=== PATIENT | female | born 1950 | race African-American/Black ===

== ENCOUNTER 2017-06-22 09:44 | Emergency (ER) | payer MEDICARE, SELFPAY ==
[2017-06-22 09:46] VITALS: BP 148/78; PULSE 110; RESP 22; TEMP 37.1; O2SAT 100; BMI 32.9
[2017-06-22 10:15] VITALS: BP 139/63; PULSE 116; RESP 24; O2SAT 100
--- NOTE | 2017-06-22 10:18 | EKG12_ITS ---
Test Reason : GEN ILL Blood Pressure : / mmHG Vent. Rate : 100 BPM Atrial Rate : 100 BPM P-R Int : 150 ms QRS Dur : 080 ms QT Int : 344 ms P-R-T Axes : 057 034 044 degrees QTc Int : 443 ms Normal sinus rhythm Low voltage QRS Confirmed by MILADY ZUNIGA, TRUDY ([id number]), publications editor NITISH CLARKE ([id number]) on 06/24/2017 1:22:46 PM Referred By: JOSE E Confirmed By:TRUDY HENNING MD
[2017-06-22 10:33] LABS: Absolute Lymphocyte Count 1.35 X10^3/ul (0.83-4.51); Basophil# 0.02 X10^3/uL; Basophil% 0.2 % (0-1); Eosinophil# 0.16 X10^3/uL; Eosinophils% 1.9 % (0-5); Hemoglobin 11.9 g/dl (12.0-15.0); Lymphocyte # 1.35 X10^3/ul (4.0); Lymphocyte % 16.4 % (19-41); Mean Corp Hgb Conc 33.1 g/gl (32-36); Mean Corpuscular Hgb 31.2 pg (27.0-32.0); Mean Corpuscular Volume 94.5 fL (81-99); Mean Platelet Vol. 10.5 fl (6.2-12.0); Monocyte# 0.69 X10^3/uL; Monocyte% 8.4 % (0-10); Neutrophil # 6.02 X10^3/uL (2.7-7.7); Platelet Count 195 K/mm3 (150-450); RBC Distribution Width CV 13.2 % (11.6-14.6); RBC Distribution Width SD 43.6 fl (35.1-43.9); Red Blood Count 3.81 M/mm3 (4.2-5.4); White Blood Count 8.3 K/mm3 (4.4-11.0)
--- NOTE | 2017-06-22 10:45 | RAD_ITS ---
STUDY: X-RAY CHEST REASON FOR EXAM: Female, 66 years old. Cough. TECHNIQUE: PA and lateral views of the chest. COMPARISON: June 17, 2016 FINDINGS: There are monitoring devices. Stable elevation of the right hemidiaphragm. There is no demonstrated pleural abnormality. Normal size heart. Normal mediastinum and allie. Normal visualized pulmonary arteries. Normal visualized aortic arch and descending thoracic aorta. There is demineralization of the osseous structures. Degenerative change of the spine and shoulders . There is no demonstrated abnormality of the visualized soft tissue structures of the upper abdomen. RAD/Chest PA and Lateral IMPRESSION: Degenerative changes, as described above. No demonstrated acute cardiopulmonary process. Electronically Signed: Jossue Abel MD at 11:11 EST , Service support ,
[2017-06-22 10:46] LABS: Anion Gap 6 (5-15); BUN 14 mg/dL (7-18); BUN/Creat Ratio 16.3 RATIO (10-20); Calcium,Total 8.7 mg/dL (8.5-10.1); Chloride 106 mmol/L (98-107); Creatinine, Serum 0.86 mg/dL (0.55-1.02); EST Glomerular Filtration Rate 71 mL/min (>60); Est Glom Filt Rate - Afr Amer 85 mL/min (>60); Estimated Creatinine Clearance 52.27 ml/min; Glucose 103 mg/dL (74-106); Potassium 3.8 mmol/L (3.5-5.1); Sodium Level 140 mmol/L (136-145)
[2017-06-22] MEDS: 0.9% Normal Saline 1,000 ML 1000 ML IV (10:48)
[2017-06-22] MEDS: Ketorolac 30 MG/ML Syringe IV (10:48)
[2017-06-22 10:51] LABS: POSITIVE COUNT NO; POSITIVE DIFFERENTIAL NO; POSITIVE MORPHOLOGY NO
--- NOTE | 2017-06-22 11:19 | ED.VISSUMM ---
- ER Visit Summary Date of Service: 06/22/17 Chief Complaint: Chills and myalgias History of Present Illness: The patient is a 66 F who presents with fever of about 100, chills muscle and joint aches. She became ill yesterday. She reports chills sweats nasal congestion sore throat. She complains of chest tightness which is worse with inspiration. She reports productive cough and diarrhea. She complains of muscle aches and joint aches. She does not feel short of breath. She denies abdominal pain. No vomiting. Physical Examination: Afebrile heart rate 110 respiratory rate 22 pulse ox 100% on room air Moist mucous membranes Heart regular rhythm tachycardia Lungs are clear without rales rhonchi or wheezes Abdomen soft and nontender Alert and oriented Test Results: Rapid influenza negative. CBC BMP unremarkable and troponin negative. EKG shows sinus rhythm at a rate of 100. Two-view chest x-ray shows no acute process. Emergency Department Course and Treatment: Was given IV fluids and Toradol here for symptomatic treatment. On reevaluation she does report improvement. Her heart rate is less than 100 and she maintains a pulse ox of 100%. She is slightly tachypneic but in no distress no retractions able speak in full sentences with no difficulty. I do believe this is related to a viral syndrome. She was instructed on supportive care. She is comfortable with the plan and all questions were answered at bedside. She does understand return for new or worsening symptoms and was discharged home. Treatment Plan: [] Disposition: Discharge Impression: Viral syndrome This note was generated with FastCAP dictation software. It may contain incorrect words, spelling, and punctuation that were not noted in review of the chart prior to signing ED Disposition - Plan for ED Patient: Chief Complaint: General Illness Referrals: Kannan Garcia MD [Primary Care Provider] -
--- NOTE | 2017-06-22 11:22 | ED.DEP ---
ED Disposition - Plan for ED Patient: Chief Complaint: General Illness Instructions: ED Viral Syndrome Referrals: Kannan Garcia MD [Primary Care Provider] -
[2017-06-22 12:11] VITALS: BP 136/72; PULSE 86; RESP 16; O2SAT 97
[2017-06-22 12:24] VITALS: BP 124/78; PULSE 77; RESP 16; O2SAT 98
== END 2017-06-22 12:28 | disposition home or self-care (01) ==
LOC: ED 10:31
PROVIDERS: Emergency Provider Emergency Medicine; Family Provider Internal Medicine; PCP Internal Medicine
DX: B34.9 Viral infection, unspecified (principal); J02.9 Acute pharyngitis, unspecified; R07.9 Chest pain, unspecified; R05 Cough; R19.7 Diarrhea, unspecified; G40.909 Epilepsy, unspecified, not intractable, without status epilepticus; E11.9 Type 2 diabetes mellitus without complications; I10 Essential (primary) hypertension; K21.9 Gastro-esophageal reflux disease without esophagitis; Z79.84 Long term (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 of oral hypoglycemic drugs; Z79.82 Long term (current) use of aspirin; Z79.899 Other long term (current) drug therapy
CPT/HCPCS: 71046; 80048; 84484; 85025; 87804; 93005; 96361; 96374; 99284; J7030; A4216

== ENCOUNTER → 2017-07-29 15:42 | Outpatient (CLI) | payer MEDICARE, SELFPAY ==
[2017-07-29 15:44] LABS: Bacteria 0 SEEN /hpf (None Seen); Red Blood Cells-Urine 0 SEEN /hpf (0-5); Squamous Epithelial Cells - UA 0 SEEN /hpf (5-10)
[2017-07-29 15:57] LABS: Color, Urine Yellow (Yellow); Glucose, Dipstick Normal (Normal); Ketone-Dipstick Negative (Negative); Leukocyte Esterase-Dipstick 25 /ul (Negative); Nitrite-Dipstick Negative (Negative); Occult Blood-Urine 10 /ul (Negative); Protein-Dipstick Negative (Negative); Specific Gravity, Urine 1.015 (1.002-1.030); Urine Bilirubin Dipstick Negative (Negative); Urine Clarity Clear (Clear); Urine Urobilinogen 1 mg/dl (Normal); Urine pH 6.5 (5.0 - 8.0)
[2017-07-29 16:21] LABS: Mucous, Urine 1+ /hpf (<or=2+); White Blood Cells 0-5 SEEN /hpf (0-5)
== END ==
PROVIDERS: Family Provider Internal Medicine; PCP Internal Medicine; Visit Provider Nurse Practitioner Family
DX: N39.0 Urinary tract infection, site not specified (principal); R30.0 Dysuria
CPT/HCPCS: 81001; 87086; 87088

== ENCOUNTER → 2017-08-13 08:19 | Outpatient (CLI) | payer MEDICARE, SELFPAY ==
--- NOTE | 2017-08-13 08:40 | RAD_ITS ---
STUDY: X-RAY - PELVIS REASON FOR EXAM: Female, 66 years old. Polyarthropathy. TECHNIQUE: One view of the pelvis was obtained. COMPARISON: None. FINDINGS: There is a non-specific bowel gas pattern. There are multiple calcified phleboliths. There is narrowing with cortical sclerosis and osteophyte formation of the sacroiliac joint consistent with degenerative osteoarthritic changes. Normal visualized bilateral superior and inferior pubic rami. Normal pubic symphysis. Normal ischial tuberosities. Normal visualized right femoral head. Normal right acetabulum. There is moderate articular joint space narrowing of the right hip. Normal visualized left femoral head. Normal left acetabulum. There is moderate articular joint space narrowing of the left hip. RAD/Pelvis 1 or 2 Views IMPRESSION: Osteoarthritis of both hip joints. Electronically Signed: Tor Artis MD at 10:35 EDT Tel [phone], Service support ,
[2017-08-13 10:20] LABS: Absolute Neutrophil Count 1.8 X10^3/uL (2.0-7.7); Basophil# 0.01 X10^3/uL; Basophil% 0.3 % (0-1); Eosinophil# 0.11 X10^3/uL; Hematocrit 36.7 % (37-47); Hemoglobin 11.9 g/dl (12.0-15.0); Lymphocyte % 38.1 % (19-41); Mean Corp Hgb Conc 32.4 g/gl (32-36); Mean Corpuscular Volume 95.6 fL (81-99); Mean Platelet Vol. 11.2 fl (6.2-12.0); Monocyte# 0.34 X10^3/uL; Monocyte% 9.3 % (0-10); Neutrophil # 1.81 X10^3/uL (2.7-7.7); Neutrophil % 49.3 % (47-70); Platelet Count 205 K/mm3 (150-450); RBC Distribution Width CV 13.2 % (11.6-14.6); RBC Distribution Width SD 44.9 fl (35.1-43.9); Red Blood Count 3.84 M/mm3 (4.2-5.4); White Blood Count 3.7 K/mm3 (4.4-11.0)
[2017-08-13 10:23] LABS: POSITIVE COUNT NO; POSITIVE DIFFERENTIAL NO; POSITIVE MORPHOLOGY NO
[2017-08-13 10:29] LABS: ALB/GLOB Ratio 0.9 RATIO (0.9-2.4); AST(SGOT) 16 U/L (15-37); Alanine Aminotransfer ALT/SGPT 21 U/L (13-56); Albumin, Serum 3.4 g/dL (3.2-5.0); Alkaline Phosphatase 110 U/L (45-117); Anion Gap 9 (5-15); BUN 17 mg/dL (7-18); BUN/Creat Ratio 20.2 RATIO (10-20); CRP 6.77 mg/L (0.0-3.0); Calcium,Total 8.7 mg/dL (8.5-10.1); Chloride 107 mmol/L (98-107); Creatinine, Serum 0.84 mg/dL (0.55-1.02); EST Glomerular Filtration Rate 72 mL/min (>60); Est Glom Filt Rate - Afr Amer 87 mL/min (>60); Globulin 3.9 g/dL (2.2-4.2); Glucose 112 mg/dL (74-106); Potassium 4.1 mmol/L (3.5-5.1); Protein, Total 7.3 g/dL (6.4-8.2); Rheumatoid Factor < 10.0 IU/mL (<15); Sodium Level 143 mmol/L (136-145)
[2017-08-13 10:38] LABS: T4 Free Direct 0.92 ng/dL (0.76-1.46); Thyroid Stim Hormone (TSH) 2.19 uIU/mL (0.358-3.74)
[2017-08-13 11:06] LABS: Erythrocyte Sedimentation Rate 16 mm/hr (0-30)
[2017-08-15 08:46] LABS: ANTINUCLEAR ANTIBODIES DIRECT Negative (Negative)
[2017-08-19 18:27] LABS: CCP IgG Antibodies 8 units (0-19); HEPATITIS B SURFACE AG Negative (Negative); HLA B27 Negative (.); Hep B Surface Antibodies Non Reactive (.); Hep C Antibodies <0.1 s/co ratio (0.0-0.9)
== END ==
PROVIDERS: Nurse Practitioner; Family Provider Internal Medicine; PCP Internal Medicine; Visit Provider Internal Medicine Rheumatology
DX: M06.4 Inflammatory polyarthropathy (principal); I11.0 Hypertensive heart disease with heart failure; I50.9 Heart failure, unspecified; G40.909 Epilepsy, unspecified, not intractable, without status epilepticus; E04.1 Nontoxic single thyroid nodule; E11.9 Type 2 diabetes mellitus without complications; E78.5 Hyperlipidemia, unspecified; G47.33 Obstructive sleep apnea (adult) (pediatric); K21.9 Gastro-esophageal reflux disease without esophagitis
CPT/HCPCS: 36415; 72170; 80053; 81374; 84439; 84443; 85025; 85652; 86038; 86140; 86200; 86431; 86706; 86803; 87340

== ENCOUNTER → 2017-10-19 05:55 | Outpatient (CLI) | payer MEDICARE, SELFPAY ==
--- NOTE | 2017-10-19 06:08 | ECHOD_ITS ---
Reason For Study: DYSPNEA Procedure This was a 2D Doppler, Color Flow transthoracic echocardiogram. Exam performed in department. Left Ventricle Normal left ventricle. Left ventricular systolic function is normal. The estimated ejection fraction is 60 %. Transmitral diastolic flow velocities suggest mild (stage 1) diastolic dysfunction (reversed pattern). No regional wall motion abnormalities noted. Right Ventricle Normal RV size. Normal systolic function. Atria Normal left atrium. Normal right atrium. Bubble contrast study negative for right to left interatrial shunt. Mitral Valve Normal mitral valve. Tricuspid Valve Normal tricuspid valve. Mild (1+) tricuspid valve insufficiency. Pulmonary artery systolic pressure is 26 mmHg. Aortic Valve Normal aortic valve. Trisinus/trileaflet aortic valve. Pulmonic Valve Normal pulmonic valve. Great Vessels Normal aortic root. The pulmonary artery is normal size. Normal inferior vena cava. Pericardium/Pleural No pericardial effusion. Medication Performed a rapid injection of agitated mix of 9 cc saline and 1cc air to assess for atrial septal defect. MMode/2D Measurements & Calculations LVIDd: 4.2 cm IVSd: 0.98 cm Ao root diam: 2.7 cm LVIDs: 2.7 cm LVPWd: 1.0 cm RVDd: 2.7 cm FS: 36.0 % LAV(MOD-bp): 50.8 ml EDV(MOD-sp4): 70.9 ml EDV(MOD-sp2): 39.9 ml LAV(MOD-bp) Indexed: 27.8 ml/m2 ESV(MOD-sp4): 25.5 ml EF(MOD-sp2): 65.3 % LAV(MOD-sp2): 46.2 ml EF(MOD-sp4): 64.1 % LAV(MOD-sp4): 51.3 ml SV(MOD-sp4): 45.4 ml SV(MOD-sp2): 26.0 ml LA A4 area: 18.2 cm2 RA A4 area: 13.1 cm2 Doppler Measurements & Calculations MV E max raul: 63.5 cm/sec Lat Peak E' Raul: 4.1 cm/sec Med Peak E' Raul: 5.6 cm/sec MV A max raul: 85.8 cm/sec E/E' lat: 15.6 E/E' med: 11.3 MV E/A: 0.74 Ao V2 max: 120.9 cm/sec LV V1 max: 111.2 cm/sec TR max raul: 234.2 cm/sec Ao max P.8 mmHg LV V1 max P.9 mmHg TR max P.0 mmHg Interpretation Summary Normal left ventricle. Left ventricular systolic function is normal. The estimated ejection fraction is 60 %. Transmitral diastolic flow velocities suggest mild (stage 1) diastolic dysfunction (reversed pattern). Bubble contrast study negative for right to left interatrial shunt. Ordering Physician: WINSTON GARRIDO Referring Physician: MAYDA MALIK Performed By: Christin Vicente, YUMIKO, RVT
--- NOTE | 2017-10-19 12:06 | STRESSREP ---
Stress Test Report Exercise myocardial perfusion stress test. 66-year-old lady with a history of shortness of breath and dyspnea on exertion. Medications Metformin and Amaryl Plaquenil and Lipitor Cozaar. Stress protocol: Resting EKG demonstrates normal sinus rhythm with a rate of 83 beats minute normal intervals and noted resting blood pressure is 126/78 mmHg. The patient exercised according to regular Eldon protocol for a total duration of 9 minutes completing stage III of the Eldon protocol. The maximum heart rate attained was 142 bpm which was 91% of maximum predicted heart rate the maximum workload attained was 10.1 metabolic equivalents. At rest were no ST or T-wave changes noted suggest ischemia at peak exercise upsloping ST changes only were noted with no meet the criteria for ischemia. No clinical angina was noted the test was terminated due to leg fatigue. The resting blood pressure is 126/78 with a peak blood pressure 160/68 rate pressure product was 22,500. Myocardial perfusion protocol. 11.7 mCi of technetium 99m sestamibi was injected at rest. The patient exercised according to regular [place]on protocol for total duration of 9 minutes attaining 10.1 metabolic equivalents at peak exercise 33.3 mCi of technetium 99m sestamibi was injected stress images were obtained stress and rest images were reconstructed and compared in the short axis vertical long and horizontal long axis. Gated images were also obtained pre- Perfusion SPECT analysis. Review of the stress images demonstrate normal uptake of tracer noted in all areas of the myocardium. The resting images similarly demonstrate normal uptake of tracer noted in all areas of myocardium. No areas of reversibility are noted suggest ischemia and no previous infarct is noted. Gated SPECT analysis. The gated ejection fraction is noted to be 70%. Conclusion: Normal exercise myocardial perfusion stress test at a high workload. Preserved ejection fraction.
== END ==
PROVIDERS: Family Provider Internal Medicine; PCP Internal Medicine; Visit Provider Internal Medicine Cardiovascular Disease
DX: R06.09 Other forms of dyspnea (principal); R06.02 Shortness of breath
CPT/HCPCS: 78452; 93017; 93306; A9500; A4216

== ENCOUNTER → 2017-10-20 08:34 | Outpatient (CLI) | payer MEDICARE, SELFPAY ==
[2017-10-20 10:32] LABS: Absolute Lymphocyte Count 1.42 X10^3/ul (0.83-4.51); Absolute Neutrophil Count 2.4 X10^3/uL (2.0-7.7); Basophil# 0.01 X10^3/uL; Basophil% 0.2 % (0-1); Eosinophil# 0.08 X10^3/uL; Eosinophils% 1.9 % (0-5); Hematocrit 37.8 % (37-47); Hemoglobin 12.5 g/dl (12.0-15.0); Lymphocyte # 1.42 X10^3/ul (4.0); Lymphocyte % 33.2 % (19-41); Mean Corp Hgb Conc 33.1 g/gl (32-36); Mean Corpuscular Hgb 31.3 pg (27.0-32.0); Mean Corpuscular Volume 94.7 fL (81-99); Mean Platelet Vol. 10.9 fl (6.2-12.0); Monocyte# 0.36 X10^3/uL; Monocyte% 8.4 % (0-10); Neutrophil # 2.41 X10^3/uL (2.7-7.7); Neutrophil % 56.3 % (47-70); Platelet Count 225 K/mm3 (150-450); Red Blood Count 3.99 M/mm3 (4.2-5.4); White Blood Count 4.3 K/mm3 (4.4-11.0)
[2017-10-20 10:35] LABS: POSITIVE COUNT NO; POSITIVE DIFFERENTIAL NO; POSITIVE MORPHOLOGY NO
[2017-10-20 11:05] LABS: ALB/GLOB Ratio 0.8 RATIO (0.9-2.4); AST(SGOT) 24 U/L (15-37); Alanine Aminotransfer ALT/SGPT 36 U/L (13-56); Albumin, Serum 3.3 g/dL (3.2-5.0); Alkaline Phosphatase 112 U/L (45-117); Anion Gap 6 (5-15); BUN 16 mg/dL (7-18); Calcium,Total 8.4 mg/dL (8.5-10.1); Chloride 106 mmol/L (98-107); Cholesterol 169 mg/dL (200); Creatinine, Serum 0.89 mg/dL (0.55-1.02); EST Glomerular Filtration Rate 68 mL/min (>60); Est Glom Filt Rate - Afr Amer 82 mL/min (>60); Globulin 4.2 g/dL (2.2-4.2); Glucose 118 mg/dL (74-106); High Density Lipoprotein 39 mg/dL; Potassium 4.3 mmol/L (3.5-5.1); Protein, Total 7.5 g/dL (6.4-8.2); Sodium Level 142 mmol/L (136-145); Triglycerides 99 mg/dL; Very Low Density Lipoprotein 20 mg/dL (5-40)
[2017-10-21 08:39] LABS: Vitamin D,25 Hydroxy 19.9 ng/mL (29.95-100.01)
== END ==
PROVIDERS: Family Provider Internal Medicine; PCP Internal Medicine; Visit Provider Internal Medicine Rheumatology
DX: M06.4 Inflammatory polyarthropathy (principal); G40.909 Epilepsy, unspecified, not intractable, without status epilepticus; E11.9 Type 2 diabetes mellitus without complications; E55.9 Vitamin D deficiency, unspecified; K21.9 Gastro-esophageal reflux disease without esophagitis
CPT/HCPCS: 36415; 80053; 80061; 82306; 85025

== ENCOUNTER → 2018-01-13 08:21 | Outpatient (CLI) | payer MEDICARE, BC, SELFPAY ==
--- NOTE | 2018-01-13 08:30 | BD_ITS ---
STUDY: DUAL ENERGY X-RAY ABSORPTIOMETRY / DXA REASON FOR EXAM: Female, 67 years old. The patient is postmenopausal. No loss of height. TECHNIQUE: Bone Mineral Density (BMD) measurements of lumbar spine and bilateral hips were obtained. COMPARISON: None. FINDINGS: Lumbar Spine (L1-L4): g/cm2 (0.914) / T-score (-2.2) / Z-score (-1.3) Findings are suggestive of osteopenia with a moderate fracture risk. Left Femur Total: g/cm2 (0.951) / T-score (-0.5) / Z-score (-0.2) Left Femoral Neck: g/cm2 (0.897) / T-score (-1.0) / Z-score (0.5) Right Femur Total: g/cm2 (0.852) / T-score (-1.2) / Z-score (-1.0) Right Femoral Neck: g/cm2 (0.800) / T-score (-1.7) / Z-score (-1.2) BD/Dexa Bone Density Study IMPRESSION: The patient is considered osteopenic as outlined below according to World Silvio Organization (WHO) criteria with a moderate fracture risk. Reference Information: The T-score is the number of standard deviations above or below the standard which is normal for young adults at their peak bone mineral density. The World Health Organization (WHO) interprets the T-scores as follows: Above -1 Normal bone density Between -1 and -2.5 Osteopenia Equal to / or below -2.5 Osteoporosis As a practical clinical guideline, osteopenia may be graded as follows: Mild -1 through -1.5 Moderate -1.6 through -2.0 Severe -2.1 through -2.4 The Z-score is the number of standard deviations above or below age-matched controls. A Z-score of less than -1.5 would be considered abnormal. References: 1. NIH Osteoporosis and Related Bone Diseases http://www.osteo.org 2. International Society for Clinical Densitometry http://www.iscd.org 3. National Osteoporosis Foundation http://www.nof.org Electronically Signed: Tor Artis MD at 13:29 EDT Tel [phone], Service support ,
== END ==
PROVIDERS: Family Provider Internal Medicine; PCP Internal Medicine; Visit Provider Internal Medicine
DX: Z78.0 Asymptomatic menopausal state (principal); M85.80 Other specified disorders of bone density and structure, unspecified site
CPT/HCPCS: 77080

== ENCOUNTER 2018-03-20 18:35 | Inpatient (IN) | payer MEDICARE, BC, SELFPAY ==
[2018-03-20] VITALS (17 sets, daily range): BP systolic 108–176; BP diastolic 62–94; PULSE 81–125; RESP 12–18; TEMP 36.9; O2SAT 98–100; BMI 33.0; BMI 32.7
--- NOTE | 2018-03-20 18:45 | EKG12_ITS ---
Test Reason : CP Blood Pressure : / mmHG Vent. Rate : 121 BPM Atrial Rate : 121 BPM P-R Int : 146 ms QRS Dur : 076 ms QT Int : 314 ms P-R-T Axes : 058 017 043 degrees QTc Int : 445 ms Sinus tachycardia Possible Left atrial enlargement Borderline ECG Confirmed by RADHIKA ZUNIGA, KELLY ([id number]), proposal editor NITISH CLARKE ([id number]) on 03/24/2018 11:56:55 AM Referred By: DC Confirmed By:KELLY GARRIDO MD
--- NOTE | 2018-03-20 18:47 | ED.VISSUMM ---
- ER Visit Summary Date of Service: 03/20/18 Chief Complaint: Chest pain History of Present Illness: The patient is a 67 F left-sided chest pain started 2 days ago. States went away this morning woke up at 8 5 AM with mild pain left chest with numbness left arm. States waxing waning progressed throughout the day currently at 10. Sharp in nature. Complains of dyspnea mild sweats. No nausea. Denies tobacco history. History hypertension, hypercholesteremia, diabetes. No recent travel, surgery, or immobilizations. No history of PE or DVT. States history of congestive heart failure however no [place] history. Currently see a new road design draftsperson. No aspirin taken at home. Physical Examination: General: Alert and oriented ?3, no acute distress HEENT: Normocephalic, atraumatic. Moist mucosa membranes Neck: supple, nontender. Cardiovascular: Regular tachycardic rate and rhythm, no murmurs Respiratory: Normal breath sounds, symmetric, no distress Abdomen: Soft, nontender, nondistended Extremities: Nontender, no edema, pulses intact ?4 Neuro: no focal neurological deficits. Test Results: EKG: Sinus rate of 121, no ST or T wave changes. White count 5.5 hemoglobin 12.3. Creatinine 0.8. Potassium 4.0. Troponin 0 0.015. D-dimer 0.47. Chest x-ray negative. Emergency Department Course and Treatment: Patient complaining of angina symptoms. Aspirin and nitro series given. Workup initiated. Initial workup negative. Her tachycardia d-dimer obtain normal levels. She is given gentle fluids heart rate did improve to the 80s. Reevaluation however states still had pressure pain 8 out of 10. She is placed on a nitro drip due to her symptoms. This significantly improved her symptoms. DONYA scores a 2. Heart scores of 4. I discussed with road design draftsperson Dr. Mobley will add Lovenox. Will admit for cardiac rule out. Spoke with hospitalist Dr. Meléndez for admission to stepdown. Treatment Plan: [] Disposition: Admission Impression: 1. Acute chest pain 2. acute coronary syndrome This note was generated with KnexxLocalation software. It may contain incorrect words, spelling, and punctuation that were not noted in review of the chart prior to signing ED Disposition - Plan for ED Patient: Disposition: [facility] Chief Complaint: Chest Pain Diagnosis: Chest pain Referrals: Kannan Garcia MD [Primary Care Provider] -
[2018-03-20] MEDS: Aspirin 81 MG TAB.CHEW 324 MG PO (18:52)
[2018-03-20] MEDS: 0.9% Normal Saline 1,000 ML 150 ML IV (18:55)
[2018-03-20 18:56] LABS: Absolute Lymphocyte Count 2.51 X10^3/ul (0.83-4.51); Absolute Neutrophil Count 2.5 X10^3/uL (2.0-7.7); Basophil# 0.01 X10^3/uL; Basophil% 0.2 % (0-1); Eosinophil# 0.14 X10^3/uL; Eosinophils% 2.6 % (0-5); Hematocrit 37.8 % (37-47); Hemoglobin 12.3 g/dl (12.0-15.0); Lymphocyte # 2.51 X10^3/ul (4.0); Lymphocyte % 45.7 % (19-41); Mean Corp Hgb Conc 32.5 g/gl (32-36); Mean Corpuscular Hgb 30.8 pg (27.0-32.0); Mean Corpuscular Volume 94.7 fL (81-99); Mean Platelet Vol. 10.1 fl (6.2-12.0); Monocyte# 0.28 X10^3/uL; Monocyte% 5.1 % (0-10); Neutrophil # 2.54 X10^3/uL (2.7-7.7); Neutrophil % 46.2 % (47-70); Platelet Count 228 K/mm3 (150-450); RBC Distribution Width SD 45.1 fl (35.1-43.9); Red Blood Count 3.99 M/mm3 (4.2-5.4); White Blood Count 5.5 K/mm3 (4.4-11.0)
[2018-03-20 18:57] LABS: POSITIVE COUNT NO; POSITIVE DIFFERENTIAL NO; POSITIVE MORPHOLOGY NO
[2018-03-20 19:03] LABS: Prothrombin Time (Protime)PT. 12.7 SECONDS (11.7-14.9)
[2018-03-20 19:04] LABS: Partial Thromboplast Time 28.4 Seconds (24.1-36.2)
[2018-03-20 19:06] LABS: D-Dimer Quantitative (DVT/PE) 0.47 FEU/ug/m (0.27-0.49)
[2018-03-20 19:13] LABS: Anion Gap 9 (5-15); BUN 19 mg/dL (7-18); Calcium,Total 8.8 mg/dL (8.5-10.1); Chloride 108 mmol/L (98-107); Creatinine, Serum 0.86 mg/dL (0.55-1.02); EST Glomerular Filtration Rate 70 mL/min (>60); Est Glom Filt Rate - Afr Amer 85 mL/min (>60); Estimated Creatinine Clearance 51.58 ml/min; Glucose 102 mg/dL (74-106); Sodium Level 145 mmol/L (136-145)
--- NOTE | 2018-03-20 19:33 | EKG12_ITS ---
Test Reason : REPEAT Blood Pressure : / mmHG Vent. Rate : 099 BPM Atrial Rate : 099 BPM P-R Int : 150 ms QRS Dur : 078 ms QT Int : 346 ms P-R-T Axes : 048 010 022 degrees QTc Int : 444 ms Normal sinus rhythm Normal ECG Confirmed by KELLY GARRIDO MD ([id number]), film or videotape editor NITISH CLARKE ([id number]) on 03/24/2018 11:57:12 AM Referred By: TL Confirmed By:KELLY GARRIDO MD
--- NOTE | 2018-03-20 19:33 | RAD_ITS ---
STUDY: X-RAY CHEST REASON FOR EXAM: Female, 67 years old. Chest pain, dyspnea. TECHNIQUE: Portable chest. COMPARISON: 06/22/2017. FINDINGS: The lungs are clear and expanded. There is no demonstrated pleural abnormality. Normal size heart. Normal mediastinum and allie. Normal visualized pulmonary arteries. Normal visualized aortic arch and descending thoracic aorta. Normal visualized thoracic spine. Normal visualized ribs, clavicles, and shoulders. There is no demonstrated abnormality of the visualized soft tissue structures of the upper abdomen. RAD/Chest 1 View (Portable) IMPRESSION: Normal x-ray examination of the chest. Electronically Signed: Janeth Forman MD at 19:59 EST Tel , Service support ,
[2018-03-20] MEDS: Nitroglycerin Infusion 250 ML 12 MG IV (20:16)
[2018-03-20] MEDS: Acetaminophen 500 MG Tablet 1000 MG PO (20:21)
[2018-03-20] MEDS: Enoxaparin 100 MG/ML Syringe 90 MG SC (21:00)
--- NOTE | 2018-03-20 21:10 | HP.PCM_ITS ---
Problem List (1) Chest pain Status: Acute History of Present Illness Date of Admission: 03/20/18 Chief Complaint: chest Pain The patient is a 67 year old F with a significant history of hypertension, diabetes, seizure disorder, stage I diastolic dysfunction who presented with a 2 days history of progressively worsening episodic substernal squeezing chest pain that radiated to her left arm. She reports numbness of her left arm. Associated with her symptoms is diaphoresis; headache; cough and shortness of breath. Patient denies any aggravating factor. At emergency department patient was started on nitroglycerin drip. Patient reports improvement of chest pain with nitroglycerin drip. On the same day of admission she had some nausea and loose bowel movements x 3 times. Past Medical History Past Medical History (Chronic Problems): Chronic Problems (Last Reviewed 03/20/18 @ 21:48 by Parker Meléndez MD) Heel spur (Chronic) Type 2 diabetes mellitus (Chronic) Obesity (Chronic) Vitamin D deficiency (Chronic) Hypertension (Chronic) Seizure disorder (Chronic) Diabetes mellitus (Chronic) type 2 Conversion disorder (Chronic) Cerebrovascular disease (Chronic) 45% L ICA stenosis Rheumatoid arthritis (Chronic) Hx of chronic inflammatory arthritis (Chronic) Chronic diastolic CHF (congestive heart failure) (Chronic) Hyperlipidemia (Chronic) Obstructive sleep apnea (Chronic) Medical History: Medical History (Last Reviewed 03/20/18 @ 21:48 by Parker Meléndez MD) Arthritis M19.90 Diabetes type 2, controlled E11.9 H/O: hysterectomy Z98.890, Z90.710 Heart disease I51.9 High cholesterol E78.00 Hives L50.9 Rheumatoid arthritis M06.9 Seasonal allergies J30.2 Seizures R56.9 HTN (hypertension) I10 Allergies prednisone Adverse Reaction (Verified 03/20/18 18:38) Nausea Home Medications: Ambulatory Orders Medication Instructions Recorded Metformin HCl [Glucophage] 500 mg PO BIDCM 02/22/13 Gabapentin 600 mg PO BID 02/23/13 Glimepiride [Amaryl] 2 mg PO DAILY 02/23/13 Hydroxychloroquine [Plaquenil] 200 mg PO BIDCM 02/23/13 Meloxicam [Mobic] 7.5 mg PO DAILY 02/23/13 Omeprazole [Prilosec] 20 mg PO DAILY 02/23/13 Verapamil [Calan] 120 mg PO QHS 02/23/13 Dicyclomine HCl [Bentyl] 20 mg PO TIDAC PRN #16 cap 12/25/15 Atorvastatin Calcium [Lipitor] 40 mg PO QHS 08/24/16 Aspirin [Aspirin, Baby] 81 mg PO DAILY@0800 02/26/17 Cholecalciferol (Vitamin D3) 2,000 unit PO DAILY 02/26/17 [Vitamin D3] Losartan Potassium [Cozaar] 25 mg PO DAILY 02/26/17 cyclobenzaprine 10 mg tablet 10 mg PO TID PRN #30 tab 05/18/17 fluticasone 50 mcg/actuation nasal 1 spray INTRANASAL BID #16 g 06/23/17 spray,suspension triamcinolone acetonide 0.025 % 1 applic TOPICAL QDAY #80 g 09/10/17 topical ointment ketotifen 0.025 % (0.035 %) eye 1 drp OPHTHALMIC BID PRN #5 ml 09/14/17 drops divalproex ER 250 mg 1,000 mg PO QHS #120 tab 03/17/18 tablet,extended release 24 hr Surgical History: Surgical History (Last Reviewed 03/20/18 @ 21:48 by Parker Meléndez MD) History of carpal tunnel surgery Z92.89 History of section Z98.891 Surgical History: hysterectomy Psychiatric History: No pertinent psych hx Smoking Status: Never smoker - *Family History Maternal Family History: Family History (Last Reviewed 03/21/18 @ 01:23 by Parker Meléndez MD) Grandmother Alcoholism Cancer Arthritis Mother Alcoholism Diabetes blood clots Hypertension Grandfather Heart disease Sister Thyroid disorder Other Breast cancer Cervical cancer Colon cancer History Items: Diabetes - age 60 Paternal Family History: Family History (Last Reviewed 03/21/18 @ 01:23 by Parker Meléndez MD) Grandmother Alcoholism Cancer Arthritis Mother Alcoholism Diabetes blood clots Hypertension Grandfather Heart disease Sister Thyroid disorder Other Breast cancer Cervical cancer Colon cancer History Items: Unknown Review of Systems Constitutional: Denies: Chills, Fever, Weight Change HEENT: Reports: Head Aches. Denies: Sinus Congestion, Sinus Drainage Cardiovascular: Reports: Chest Pain. Denies: Palpitations Respiratory: Reports: Cough, Shortness of Breath Gastrointestinal: Reports: Diarrhea, Nausea. Denies: Abdominal Pain, Vomiting Genitourinary: Denies: Dysuria Musculoskeletal: Denies: Joint Pain, Joint Tenderness Skin: Denies: Rash, Wounds Neurological: Reports: Numbness - left arm. Denies: Focal weakness, Tingling Psychiatric: Denies: Anxiety, Depression, Homicidal Ideations, Suicidal Ideations Hematologic/ Lymphatic: Denies: Easy Bruising, Easy Bleeding VTE Information - Inpt Only VTE Present on Admission: No VTE Mechan Device Prophylaxis: None VTE Pharm Prophylaxis ordered?: No Reason prophylaxis not ordered:: Treatment Not Indicated - Started on therapy Lovenox for chest pain. Patient Problems: Active and Suspected Problems (Last Reviewed 03/20/18 @ 21:48 by Parker Meléndez MD) Chest pain (Acute) - Physical Exam General: Alert, Oriented x3, Cooperative HEENT: Atraumatic, PERRLA, EOMI, Normocephalic Neck: Supple, No JVD, Negative Carotid Bruits Lungs: Clear to auscultation, Normal air movement Cardiovascular: No murmurs, Tachycardic Abdomen: Bowel Sounds Present, Soft, Non Tender Extremities: No edema, Capillary Refill Less than 3 Seconds Skin: No rashes, No breakdown Musculoskeletal: No Tenderness to Palpation of Joints or Extremities Neurological: Cranial nerves II-XII grossly intact Psych/Mental Status: Normal Affect, Appropriate Vital Signs Pulse Resp BP Pulse Ox 90 14 133/83 H 100 03/20/18 20:43 03/20/18 20:43 03/20/18 20:43 03/20/18 20:43 Oxygen Flow Rate (L/min) 2 Oxygen Delivery Method Nasal Cannula Weight: 81.828 kg Body Mass Index (BMI) 33.0 Finger Stick Blood Glucose 173 Laboratory Tests Past 24 Hrs 03/20/18 03/20/18 03/20/18 18:43 18:43 18:43 WBC 5.5 RBC 3.99 L Hgb 12.3 Hct 37.8 MCV 94.7 MCH 30.8 MCHC 32.5 RDW 13.0 RDW Differential 45.1 H Plt Count 228 MPV 10.1 Immature Gran % (Auto) 0.200 Neut % (Auto) 46.2 L Lymph % (Auto) 45.7 H [place] % (Auto) 5.1 Eos % (Auto) 2.6 Baso % (Auto) 0.2 Absolute Neuts (auto) 2.5 Absolute Lymphs (auto) 2.51 Total Counted Not Reportable PT 12.7 INR 1.0 APTT 28.4 D-Dimer Quant (PE/DVT) 0.47 Sodium 145 Potassium 4.0 Chloride 108 H Carbon Dioxide 28.0 Anion Gap 9 BUN 19 H Creatinine 0.86 Estim Creat Clear Calc 51.58 Est GFR (MDRD) Af Amer 85 Est GFR (MDRD) Non-Af 70 BUN/Creatinine Ratio 22.0 H Glucose 102 Calcium 8.8 Troponin I < 0.015 Assessment/Plan All Active Problems (Last Reviewed 03/20/18 @ 21:48 by Parker Meléndez MD) Chest pain (Acute) Dyspnea on exertion (Acute) Allergic conjunctivitis and rhinitis (Acute) Non-toxic multinodular goiter (Acute) The patient is a 67 year old F with a significant history of hypertension, rheumatoid arthritis; diabetes, seizure disorder, CHF who presented with a 2 days history of progressively worsening episodic substernal squeezing chest pain that radiates to her left arm consistent with likely unstable angina. Chest pain Heart Score 6 (History highly suspicious; normal; 3 risk factors (obesity; DM; and HTN) Admit to a monitored bed on PCU CXR independently reviewed confirms no acute cardiopulmonary process. EKG independently reviewed confirms sinus tachycardia. Review of old records showed that echocardiogram on 10/19/2017 depicted stage I diastolic dysfunction. On home dose aspirin 81 mg daily. Continue ASA 81 mg p.o. daily On home Lipitor 40 mg nightly. Increase to 80 mg nightly. On home verapamil. Verapamil held at this time. Started on low-dose beta-blockers; coreg Patient was started on nitroglycerin drip from the emergency department. Nitroglycerin drip continued. Received Lovenox therapeutic dose at emergency department. Lovenox repeat therapeutic dose dose ordered in a.m. Troponin at emergency department was negative. Serial cardiac enzymes ordered Stat EKG as needed for chest pain Cardiology consult for risk stratification and to optimize management. Gastroenteritis Likely viral Transient. Monitor Diabetes mellitus Blood glucose on admission was within goal. We will keep patient n.p.o. Discontinue home oral hypoglycemic medication (glimepiride and metformin) Correction scale insulin ordered. Hypertension Cozaar continued. Verapamil held because of likely coronary artery disease Coreg added for chest pain. Rheumatoid arthritis Plaquenil continued. Seizure disorder Continued Depakote Asymptomatic bacteriuria. No treatment at this time. DVT prophylaxis On therapeutic Lovenox for unstable angina. Code Visit OBSV E&M: [id number] Initial observation care L3
--- NOTE | 2018-03-20 21:56 | EKG12_ITS ---
Test Reason : CP ADMIT Blood Pressure : / mmHG Vent. Rate : 091 BPM Atrial Rate : 091 BPM P-R Int : 144 ms QRS Dur : 078 ms QT Int : 368 ms P-R-T Axes : 068 037 042 degrees QTc Int : 452 ms Normal sinus rhythm Nonspecific T wave abnormality Abnormal ECG When compared with ECG of 22-JUN-2017 10:36, No significant change was found Confirmed by RADHIKA ZUNIGA, KELLY ([id number]), book or script editor NITISH CLARKE ([id number]) on 03/26/2018 1:59:42 PM Referred By: DR ROMERO Confirmed By:KELLY GARRIDO MD
[2018-03-20] MEDS: Divalproex (ER) 500 MG Tablet 1000 MG PO (22:53)
[2018-03-20] MEDS: Atorvastatin Calcium 80 MG Tablet PO (22:53)
[2018-03-20] MEDS: Carvedilol 3.125 MG TABLET PO (22:53)
[2018-03-20 23:45] LABS: Bedside Glucose 116 mg/dL (70-110)
[2018-03-21] VITALS (25 sets, daily range): BP systolic 102–136; BP diastolic 61–86; PULSE 70–99; RESP 12–21; TEMP 36.3–36.8; O2SAT 93–100
[2018-03-21 00:22] LABS: Color, Urine Yellow (Yellow); Glucose, Dipstick Normal (Normal); Ketone-Dipstick Negative (Negative); Leukocyte Esterase-Dipstick 500 /ul (Negative); Nitrite-Dipstick Negative (Negative); Occult Blood-Urine 10 /ul (Negative); Protein-Dipstick 15 mg/dl (Negative); Urine Bilirubin Dipstick Negative (Negative); Urine Clarity Clear (Clear); Urine Urobilinogen Normal (Normal)
--- NOTE | 2018-03-21 05:55 | EKG12_ITS ---
Test Reason : AM EKG Blood Pressure : / mmHG Vent. Rate : 073 BPM Atrial Rate : 073 BPM P-R Int : 158 ms QRS Dur : 082 ms QT Int : 400 ms P-R-T Axes : 057 018 034 degrees QTc Int : 440 ms Normal sinus rhythm Normal ECG When compared with ECG of 20-MAR-2018 22:00, MANUAL COMPARISON REQUIRED, DATA IS UNCONFIRMED Confirmed by RADHIKA ZUNIGA, KELLY ([id number]), scientific editor NITISH CLARKE ([id number]) on 03/26/2018 1:58:00 PM Referred By: DR ROMERO Confirmed By:KELLY GARRIDO MD
[2018-03-21 06:11] LABS: Bedside Glucose 128 mg/dL (70-110)
[2018-03-21 06:37] LABS: Absolute Lymphocyte Count 2.23 X10^3/ul (0.83-4.51); Basophil# 0.01 X10^3/uL; Basophil% 0.2 % (0-1); Eosinophil# 0.15 X10^3/uL; Eosinophils% 3.2 % (0-5); Hematocrit 32.6 % (37-47); Hemoglobin 10.6 g/dl (12.0-15.0); Lymphocyte # 2.23 X10^3/ul (4.0); Lymphocyte % 47.5 % (19-41); Mean Corp Hgb Conc 32.5 g/gl (32-36); Mean Corpuscular Hgb 31.2 pg (27.0-32.0); Mean Corpuscular Volume 95.9 fL (81-99); Mean Platelet Vol. 10.5 fl (6.2-12.0); Monocyte# 0.29 X10^3/uL; Monocyte% 6.2 % (0-10); Neutrophil % 42.7 % (47-70); Platelet Count 199 K/mm3 (150-450); RBC Distribution Width CV 12.7 % (11.6-14.6); RBC Distribution Width SD 42.6 fl (35.1-43.9); White Blood Count 4.7 K/mm3 (4.4-11.0)
[2018-03-21 06:39] LABS: International Normalized Ratio 1.1; Prothrombin Time (Protime)PT. 14.5 SECONDS (11.7-14.9)
[2018-03-21 06:40] LABS: Partial Thromboplast Time 37.6 Seconds (24.1-36.2)
[2018-03-21 06:45] LABS: POSITIVE COUNT NO; POSITIVE DIFFERENTIAL NO; POSITIVE MORPHOLOGY NO
[2018-03-21 07:02] LABS: Anion Gap 10 (5-15); BUN 15 mg/dL (7-18); BUN/Creat Ratio 20.5 RATIO (10-20); Chloride 109 mmol/L (98-107); Cholesterol 168 mg/dL (200); Creatinine, Serum 0.73 mg/dL (0.55-1.02); EST Glomerular Filtration Rate 85 mL/min (>60); Est Glom Filt Rate - Afr Amer 103 mL/min (>60); Estimated Creatinine Clearance 60.77 ml/min; Glucose 116 mg/dL (74-106); High Density Lipoprotein 39 mg/dL; Potassium 3.7 mmol/L (3.5-5.1); Sodium Level 145 mmol/L (136-145); Triglycerides 116 mg/dL; Very Low Density Lipoprotein 23 mg/dL (5-40)
[2018-03-21] MEDS: Losartan Potassium 25 MG Tablet PO (09:10)
[2018-03-21] MEDS: Pantoprazole Sodium 20 MG Tablet PO (09:10)
[2018-03-21] MEDS: Carvedilol 3.125 MG TABLET PO ×2 (09:10→21:07)
[2018-03-21] MEDS: Gabapentin 600 MG Tablet PO ×2 (09:10→21:07)
[2018-03-21] MEDS: Aspirin E.C. 81 MG Tablet PO (09:11)
[2018-03-21] MEDS: Hydroxychloroquine 200 MG Tablet PO ×2 (09:11→17:03)
--- NOTE | 2018-03-21 11:45 | PN_ITS ---
<Farhat Norris - Last Filed: 03/21/18 11:32> Patient Problems: Active and Suspected Problems (Last Reviewed 03/20/18 @ 21:48 by Parker Meléndez MD) Chest pain (Acute) Subjective: Still some midsternal chest pain with left arm radiation and numbess. Did also have dizziness, nausea, and diaphoresis. Currently comfortable on nitro drip. BP stable. - Physical Exam General: Alert, Oriented x3, Cooperative HEENT: Atraumatic, PERRLA, EOMI, Normocephalic Neck: Supple, No JVD, Negative Carotid Bruits Lungs: Clear to auscultation, Normal air movement Cardiovascular: Regular rate, No murmurs Abdomen: Bowel Sounds Present, Soft, Non Tender Extremities: No edema, Capillary Refill Less than 3 Seconds Skin: No rashes, No breakdown Musculoskeletal: No Tenderness to Palpation of Joints or Extremities Neurological: Cranial nerves II-XII grossly intact Psych/Mental Status: Normal Affect, Appropriate, Alert and oriented to time, place, person, mood and affect Vital Signs Temp Pulse Resp BP Pulse Ox 97.4 F L 85 15 108/76 93 03/21/18 04:15 03/21/18 07:05 03/21/18 07:00 03/21/18 07:00 03/21/18 07:00 Oxygen Flow Rate (L/min) 2 Oxygen Delivery Method Room Air Weight: 179 lb 0.246 oz Body Mass Index (BMI) 32.7 Finger Stick Blood Glucose 173 Intake and Output for Last 24 Hours 03/19/18 03/20/18 03/21/18 23:59 23:59 23:59 Intake Total 40.2 / 40.2 Balance 40.2 / 40.2 Laboratory Tests Past 24 Hrs 03/20/18 03/20/18 03/20/18 18:43 18:43 18:43 WBC 5.5 RBC 3.99 L Hgb 12.3 Hct 37.8 MCV 94.7 MCH 30.8 MCHC 32.5 RDW 13.0 RDW Differential 45.1 H Plt Count 228 MPV 10.1 Immature Gran % (Auto) 0.200 Neut % (Auto) 46.2 L Lymph % (Auto) 45.7 H [place] % (Auto) 5.1 Eos % (Auto) 2.6 Baso % (Auto) 0.2 Absolute Neuts (auto) 2.5 Absolute Lymphs (auto) 2.51 Total Counted Not Reportable PT 12.7 INR 1.0 APTT 28.4 D-Dimer Quant (PE/DVT) 0.47 Sodium 145 Potassium 4.0 Chloride 108 H Carbon Dioxide 28.0 Anion Gap 9 BUN 19 H Creatinine 0.86 Estim Creat Clear Calc 51.58 Est GFR (MDRD) Af Amer 85 Est GFR (MDRD) Non-Af 70 BUN/Creatinine Ratio 22.0 H Glucose 102 Calcium 8.8 Troponin I < 0.015 Triglycerides Cholesterol LDL Cholesterol VLDL Cholesterol HDL Cholesterol Urine Color Urine Clarity Urine pH Ur Specific [place] Urine Protein Urine Glucose (UA) Urine Ketones Urine Occult Blood Urine Nitrite Urine Bilirubin Urine Urobilinogen Ur Leukocyte Esterase 03/20/18 03/21/18 03/21/18 22:12 00:14 00:37 WBC RBC Hgb Hct MCV MCH MCHC RDW RDW Differential Plt Count MPV Immature Gran % (Auto) Neut % (Auto) Lymph % (Auto) [place] % (Auto) Eos % (Auto) Baso % (Auto) Absolute Neuts (auto) Absolute Lymphs (auto) Total Counted PT INR APTT D-Dimer Quant (PE/DVT) Sodium Potassium Chloride Carbon Dioxide Anion Gap BUN Creatinine Estim Creat Clear Calc Est GFR (MDRD) Af Amer Est GFR (MDRD) Non-Af BUN/Creatinine Ratio Glucose Calcium Troponin I < 0.015 < 0.015 Triglycerides Cholesterol LDL Cholesterol VLDL Cholesterol HDL Cholesterol Urine Color Yellow Urine Clarity Clear Urine pH 7.0 Ur Specific [place] 1.010 Urine Protein 15 H Urine Glucose (UA) Normal Urine Ketones Negative Urine Occult Blood 10 H Urine Nitrite Negative Urine Bilirubin Negative Urine Urobilinogen Normal Ur Leukocyte Esterase 500 H 03/21/18 03/21/18 03/21/18 06:07 06:07 06:07 WBC 4.7 RBC 3.40 L Hgb 10.6 L Hct 32.6 L MCV 95.9 MCH 31.2 MCHC 32.5 RDW 12.7 RDW Differential 42.6 Plt Count 199 MPV 10.5 Immature Gran % (Auto) 0.200 Neut % (Auto) 42.7 L Lymph % (Auto) 47.5 H [place] % (Auto) 6.2 Eos % (Auto) 3.2 Baso % (Auto) 0.2 Absolute Neuts (auto) 2.0 Absolute Lymphs (auto) 2.23 Total Counted Not Reportable PT 14.5 INR 1.1 APTT 37.6 H D-Dimer Quant (PE/DVT) Sodium 145 Potassium 3.7 Chloride 109 H Carbon Dioxide 26.0 Anion Gap 10 BUN 15 Creatinine 0.73 Estim Creat Clear Calc 60.77 Est GFR (MDRD) Af Amer 103 Est GFR (MDRD) Non-Af 85 BUN/Creatinine Ratio 20.5 H Glucose 116 H Calcium 8.0 L Troponin I Triglycerides 116 Cholesterol 168 LDL Cholesterol 106 VLDL Cholesterol 23 HDL Cholesterol 39 L Urine Color Urine Clarity Urine pH Ur Specific [place] Urine Protein Urine Glucose (UA) Urine Ketones Urine Occult Blood Urine Nitrite Urine Bilirubin Urine Urobilinogen Ur Leukocyte Esterase POC Glucose 03/21/18 03/20/18 06:01 22:56 POC Glucose 128 H 116 H Medical Necessity - Tobacco Use Smoking Status: Never smoker Assessment/Plan All Active Problems (Last Reviewed 03/20/18 @ 21:48 by Parker Meléndez MD) Chest pain (Acute) Dyspnea on exertion (Acute) Allergic conjunctivitis and rhinitis (Acute) Non-toxic multinodular goiter (Acute) 1. Unstable angina - nitro drip, received therapeutic lovenox. Cardiology following. No Troponin elevation. EKG normal. Further workup per cardiology. Chest pain improved but still present. Asa/statin/nitro/coreg/ received one dose 90mg lovenox. Verapamil. 2. HTN - improved 3. DMt2 - SSI, hold orals. was on metormin. 4. HLD - statin 5. LINA 6. RA - plaquenil 7. Hx Seizures - depakote DVT ppx: lovenox DC planning: pending plan for further cardiac workup. This patient was seen by Farhat Norris PA-C under the supervision of Dr. Radford <Cammie Radford - Last Filed: 03/21/18 13:15> - Physical Exam Vital Signs Temp Pulse Resp BP Pulse Ox 98.0 F 86 19 H 117/74 98 03/21/18 10:00 03/21/18 12:07 03/21/18 12:07 03/21/18 12:07 03/21/18 12:07 Oxygen Flow Rate (L/min) 2 Oxygen Delivery Method Room Air Weight: 179 lb 0.246 oz Body Mass Index (BMI) 32.7 Finger Stick Blood Glucose 173 Intake and Output for Last 24 Hours 03/19/18 03/20/18 03/21/18 23:59 23:59 23:59 Intake Total 56.7 / 56.7 Balance 56.7 / 56.7 Laboratory Tests Past 24 Hrs 03/20/18 03/20/18 03/20/18 18:43 18:43 18:43 WBC 5.5 RBC 3.99 L Hgb 12.3 Hct 37.8 MCV 94.7 MCH 30.8 MCHC 32.5 RDW 13.0 RDW Differential 45.1 H Plt Count 228 MPV 10.1 Immature Gran % (Auto) 0.200 Neut % (Auto) 46.2 L Lymph % (Auto) 45.7 H [place] % (Auto) 5.1 Eos % (Auto) 2.6 Baso % (Auto) 0.2 Absolute Neuts (auto) 2.5 Absolute Lymphs (auto) 2.51 Total Counted Not Reportable PT 12.7 INR 1.0 APTT 28.4 D-Dimer Quant (PE/DVT) 0.47 Sodium 145 Potassium 4.0 Chloride 108 H Carbon Dioxide 28.0 Anion Gap 9 BUN 19 H Creatinine 0.86 Estim Creat Clear Calc 51.58 Est GFR (MDRD) Af Amer 85 Est GFR (MDRD) Non-Af 70 BUN/Creatinine Ratio 22.0 H Glucose 102 Calcium 8.8 Troponin I < 0.015 Triglycerides Cholesterol LDL Cholesterol VLDL Cholesterol HDL Cholesterol Urine Color Urine Clarity Urine pH Ur Specific [place] Urine Protein Urine Glucose (UA) Urine Ketones Urine Occult Blood Urine Nitrite Urine Bilirubin Urine Urobilinogen Ur Leukocyte Esterase 03/20/18 03/21/18 03/21/18 22:12 00:14 00:37 WBC RBC Hgb Hct MCV MCH MCHC RDW RDW Differential Plt Count MPV Immature Gran % (Auto) Neut % (Auto) Lymph % (Auto) [place] % (Auto) Eos % (Auto) Baso % (Auto) Absolute Neuts (auto) Absolute Lymphs (auto) Total Counted PT INR APTT D-Dimer Quant (PE/DVT) Sodium Potassium Chloride Carbon Dioxide Anion Gap BUN Creatinine Estim Creat Clear Calc Est GFR (MDRD) Af Amer Est GFR (MDRD) Non-Af BUN/Creatinine Ratio Glucose Calcium Troponin I < 0.015 < 0.015 Triglycerides Cholesterol LDL Cholesterol VLDL Cholesterol HDL Cholesterol Urine Color Yellow Urine Clarity Clear Urine pH 7.0 Ur Specific [place] 1.010 Urine Protein 15 H Urine Glucose (UA) Normal Urine Ketones Negative Urine Occult Blood 10 H Urine Nitrite Negative Urine Bilirubin Negative Urine Urobilinogen Normal Ur Leukocyte Esterase 500 H 03/21/18 03/21/18 03/21/18 06:07 06:07 06:07 WBC 4.7 RBC 3.40 L Hgb 10.6 L Hct 32.6 L MCV 95.9 MCH 31.2 MCHC 32.5 RDW 12.7 RDW Differential 42.6 Plt Count 199 MPV 10.5 Immature Gran % (Auto) 0.200 Neut % (Auto) 42.7 L Lymph % (Auto) 47.5 H [place] % (Auto) 6.2 Eos % (Auto) 3.2 Baso % (Auto) 0.2 Absolute Neuts (auto) 2.0 Absolute Lymphs (auto) 2.23 Total Counted Not Reportable PT 14.5 INR 1.1 APTT 37.6 H D-Dimer Quant (PE/DVT) Sodium 145 Potassium 3.7 Chloride 109 H Carbon Dioxide 26.0 Anion Gap 10 BUN 15 Creatinine 0.73 Estim Creat Clear Calc 60.77 Est GFR (MDRD) Af Amer 103 Est GFR (MDRD) Non-Af 85 BUN/Creatinine Ratio 20.5 H Glucose 116 H Calcium 8.0 L Troponin I Triglycerides 116 Cholesterol 168 LDL Cholesterol 106 VLDL Cholesterol 23 HDL Cholesterol 39 L Urine Color Urine Clarity Urine pH Ur Specific [place] Urine Protein Urine Glucose (UA) Urine Ketones Urine Occult Blood Urine Nitrite Urine Bilirubin Urine Urobilinogen Ur Leukocyte Esterase POC Glucose 03/21/18 03/21/18 03/20/18 11:51 06:01 22:56 POC Glucose 118 H 128 H 116 H Assessment/Plan Hospitalist note: I am seeing this patient in conjunction with Farhat Norris. I independently seen and examined the patient. Progress note above, laboratory data and imaging studies reviewed and I concur with the above treatment and workup plan. Patient was admitted for chest pain for evaluation. Her symptoms are concerning for unstable angina. She provided stable to presentation for ACS. Today, her chest pain improved, it is down to 2 out of 10 in severity. She has no more shortness of breath. Her blood pressure improved, other vital signs are stable. - Physical Exam General: Alert, Oriented x3, Cooperative, No apparent distress. HEENT: Atraumatic, PERRLA, EOMI. Neck: Supple, No JVD, Negative Carotid Bruits, Trachea Midline, Thyroid Normal. Lungs: Clear to auscultation, Normal air movement, No rhonchi, No wheeze, No rales. Cardiovascular: Regular rate, Regular Rhythm, Normal S1, Normal S2, PMI Normal. Abdomen: Bowel Sounds Present, Soft, Non Tender, Non-Distended, No Hepato- splenomegaly. Extremities: No clubbing, No cyanosis, No edema Skin: No rashes, No breakdown Neurological: Neuro grossly intact Vital Signs are stable. Assessment and plan: #1 chest pain/probable unstable angina: Initial and repeat EKG showed no acute ischemic changes. Troponin is negative x3. Chest x-ray showed no acute findings. She is on IV nitroglycerin drip, received therapeutic Lovenox twice daily on aspirin, statins, Coreg, Plavix, losartan. Cardiology consulted, plan for cardiac catheterization tomorrow morning. Plan to DC nitroglycerin drip subcu Lovenox, order was given for loading dose of Plavix. Plan for cardiac cath tomorrow morning. #2 other chronic medical problems: Stable, continue current medication as above. This note was generated with [employer] dictation software. It may contain incorrect words, spelling, and punctuation that were not noted in checking the note before signing. Code Visit OBSV E&M: 22786 Subsequent observation care L2
[2018-03-21 11:55] LABS: Bedside Glucose 118 mg/dL (70-110)
--- NOTE | 2018-03-21 12:39 | PCM.CONS.C ---
Problem List (1) Chest pain Status: Acute Reason for Consult Date of Consultation: 03/21/18 History of Present Illness: The patient is a 67 year old F with past medical history significant for hypertension, diabetes mellitus, seizure disorder, rheumatoid arthritis and diastolic dysfunction. According to her, for the past couple of days, she has been having anterior chest pressure. There is some radiation to the left arm. No associated nausea or vomiting. No diaphoresis. No shortness of breath. According to the patient, the discomfort is mostly constant but is worsened with exertion. She is unable to identify any relieving factors. This morning, the patient says that she is having minimal discomfort. [] Past Medical History Allergies/Adverse Reactions: Allergies prednisone Adverse Reaction (Verified 03/20/18 18:38) Nausea Home Medications: Ambulatory Orders Medication Instructions Recorded Metformin HCl [Glucophage] 500 mg PO BIDCM 02/22/13 Gabapentin 600 mg PO BID 02/23/13 Glimepiride [Amaryl] 2 mg PO DAILY 02/23/13 Hydroxychloroquine [Plaquenil] 200 mg PO BIDCM 02/23/13 Meloxicam [Mobic] 7.5 mg PO DAILY 02/23/13 Omeprazole [Prilosec] 20 mg PO DAILY 02/23/13 Verapamil [Calan] 120 mg PO QHS 02/23/13 Dicyclomine HCl [Bentyl] 20 mg PO TIDAC PRN #16 cap 12/25/15 Atorvastatin Calcium [Lipitor] 40 mg PO QHS 08/24/16 Aspirin [Aspirin, Baby] 81 mg PO DAILY@0800 02/26/17 Cholecalciferol (Vitamin D3) 2,000 unit PO DAILY 02/26/17 [Vitamin D3] Losartan Potassium [Cozaar] 25 mg PO DAILY 02/26/17 cyclobenzaprine 10 mg tablet 10 mg PO TID PRN #30 tab 05/18/17 fluticasone 50 mcg/actuation nasal 1 spray INTRANASAL BID #16 g 06/23/17 spray,suspension triamcinolone acetonide 0.025 % 1 applic TOPICAL QDAY #80 g 09/10/17 topical ointment ketotifen 0.025 % (0.035 %) eye 1 drp OPHTHALMIC BID PRN #5 ml 09/14/17 drops divalproex ER 250 mg 1,000 mg PO QHS #120 tab 03/17/18 tablet,extended release 24 hr Past Medical History (Chronic Problems): Chronic Problems (Last Reviewed 03/20/18 @ 21:48 by Parker Meléndez MD) Heel spur (Chronic) Type 2 diabetes mellitus (Chronic) Obesity (Chronic) Vitamin D deficiency (Chronic) Hypertension (Chronic) Seizure disorder (Chronic) Diabetes mellitus (Chronic) type 2 Conversion disorder (Chronic) Cerebrovascular disease (Chronic) 45% L ICA stenosis Rheumatoid arthritis (Chronic) Hx of chronic inflammatory arthritis (Chronic) Chronic diastolic CHF (congestive heart failure) (Chronic) Hyperlipidemia (Chronic) Obstructive sleep apnea (Chronic) Surgical History: hysterectomy Psychiatric History: No pertinent psych hx - *Family History Maternal Family History: Family History (Last Reviewed 03/21/18 @ 01:23 by Parker Meléndez MD) Grandmother Alcoholism Cancer Arthritis Mother Alcoholism Diabetes blood clots Hypertension Grandfather Heart disease Sister Thyroid disorder Other Breast cancer Cervical cancer Colon cancer History Items: Diabetes - age 60 Paternal Family History: Family History (Last Reviewed 03/21/18 @ 01:23 by Parker Meléndez MD) Grandmother Alcoholism Cancer Arthritis Mother Alcoholism Diabetes blood clots Hypertension Grandfather Heart disease Sister Thyroid disorder Other Breast cancer Cervical cancer Colon cancer History Items: Unknown Smoking Status: Never smoker Review of Systems - Review of Systems General: Denies: Fever, Chills HEENT: Reports: Head Aches Cardiovascular: Reports: Chest Discomfort at Rest, Chest Discomfort with Exertion. Denies: Orthopnea, Peripheral Edema, Palpitations Gastrointestinal: Denies: Abdominal Discomfort, Nausea, Emesis, Hematemesis Muscoloskeletal: Reports: - - History of rheumatoid arthritis Neurological: Denies: History of TIA, History of CVA Hematologic/ Lymphatic: Denies: Easy Brusing, Easy Bleeding Subjectve: Comfortable. No apparent distress. Sitting up in the chair Objective: Vital Signs Temp Pulse Resp BP Pulse Ox 98.0 F 86 19 H 117/74 98 03/21/18 10:00 03/21/18 12:07 03/21/18 12:07 03/21/18 12:07 03/21/18 12:07 Oxygen Flow Rate (L/min) 2 Oxygen Delivery Method Room Air Weight: 81.2 kg Body Mass Index (BMI) 32.7 Finger Stick Blood Glucose 173 Intake and Output for Last 24 Hours 03/19/18 03/20/18 03/21/18 23:59 23:59 23:59 Intake Total 56.7 / 56.7 Balance 56.7 / 56.7 General: Awake, Alert, Oriented x 3 HEENT: Atraumatic, Normocephalic Oral: Moist Mucosa Neck: Supple, No JVD Lungs: Clear to auscultation Cardiovascular: Regular Rhythm, Normal S1, Normal S2 Abdomen: Bowel Sounds Present, Soft Extremities: No edema Neurological: No Focal Motor or Sensory Deficit Psych/Mental Status: Appropriate 03/20/18 18:43: WBC 5.5, RBC 3.99 L, Hgb 12.3, Hct 37.8, MCV 94.7, MCH 30.8, MCHC 32.5, RDW 13.0, RDW Differential 45.1 H, Plt Count 228, MPV 10.1, Immature Gran % (Auto) 0.200, Neut % (Auto) 46.2 L, Lymph % (Auto) 45.7 H, [place] % (Auto) 5.1, Eos % (Auto) 2.6, Baso % (Auto) 0.2, Absolute Neuts (auto) 2.5, Total Counted Not Reportable 03/20/18 18:43: PT 12.7, INR 1.0, APTT 28.4, D-Dimer Quant (PE/DVT) 0.47 03/20/18 18:43: Sodium 145, Potassium 4.0, Chloride 108 H, Carbon Dioxide 28.0, Anion Gap 9, BUN 19 H, Creatinine 0.86, Est GFR (MDRD) Af Amer 85, Est GFR (MDRD) Non-Af 70, BUN/Creatinine Ratio 22.0 H, Glucose 102, Calcium 8.8, Troponin I < 0.015 03/20/18 22:12: Troponin I < 0.015 03/21/18 00:14: Urine Color Yellow, Urine Clarity Clear, Urine pH 7.0, Ur Specific [place] 1.010, Urine Protein 15 H, Urine Glucose (UA) Normal, Urine Ketones Negative, Urine Occult Blood 10 H, Urine Nitrite Negative, Urine Bilirubin Negative, Urine Urobilinogen Normal, Ur Leukocyte Esterase 500 H 03/21/18 00:37: Troponin I < 0.015 03/21/18 06:07: Sodium 145, Potassium 3.7, Chloride 109 H, Carbon Dioxide 26.0, Anion Gap 10, BUN 15, Creatinine 0.73, Est GFR (MDRD) Af Amer 103, Est GFR (MDRD) Non-Af 85, BUN/Creatinine Ratio 20.5 H, Glucose 116 H, Calcium 8.0 L, Triglycerides 116, Cholesterol 168, LDL Cholesterol 106, VLDL Cholesterol 23, HDL Cholesterol 39 L 03/21/18 06:07: WBC 4.7, RBC 3.40 L, Hgb 10.6 L, Hct 32.6 L, MCV 95.9, MCH 31.2, MCHC 32.5, RDW 12.7, RDW Differential 42.6, Plt Count 199, MPV 10.5, Immature Gran % (Auto) 0.200, Neut % (Auto) 42.7 L, Lymph % (Auto) 47.5 H, [place] % (Auto) 6.2, Eos % (Auto) 3.2, Baso % (Auto) 0.2, Absolute Neuts (auto) 2.0, Total Counted Not Reportable 03/21/18 06:07: PT 14.5, INR 1.1, APTT 37.6 H Rhythm: Normal sinus rhythm EKG: Normal sinus rhythm. No ischemic changes ECHO: Stress Test: Cardiac Cath: PCI: CT Surgery: Holter monitor: EPS: PPM: CXR: Chest CT Scan: Assessment/Plan 1. Anterior chest pressure radiating to the left arm. Exacerbated with exertion. Consider unstable angina. I recommended patient undergo cardiac catheterization with coronary angiography and possible revascularization. Risks benefits were explained. Alternatives explained. She understands these and wishes to proceed. I offered her the procedure today however she likes to have it done in the morning. I counseled her that if her chest pain recurs or gets worse, then we may need to do it urgently. She understands. Continue carvedilol. Load with clopidogrel. DC nitroglycerin infusion. Start on Nitropaste X 2. History of hypertension 3. History of diastolic dysfunction/CHF per patient. Check 2D echocardiogram Doppler 4. With management as per internal medicine. 5. History of rheumatoid arthritis 6. History of seizure disorder
[2018-03-21] MEDS: Clopidogrel Bisulfate 300 MG Tablet PO (13:33)
[2018-03-21] MEDS: Enoxaparin 100 MG/ML Syringe 90 MG SC (13:37)
[2018-03-21 16:11] LABS: Bedside Glucose 173 mg/dL (70-110)
[2018-03-21] MEDS: Nitroglycerin Oint 1 INCH PACKET TRANSDERM. ×2 (17:03→23:28)
[2018-03-21] MEDS: Insulin Lispro 100 UNIT/ML INSULN.PEN SQ (17:03)
[2018-03-21] MEDS: CHLORHEXIDINE GLUC 2% CLOTH 1 EACH TOWELETTE TOPICAL (21:05)
[2018-03-21] MEDS: Fluticasone 0.05% 1 SPRAY NASAL.SRY NASAL (21:08)
[2018-03-21] MEDS: Divalproex (ER) 500 MG Tablet 1000 MG PO (21:08)
[2018-03-21] MEDS: Atorvastatin Calcium 80 MG Tablet PO (21:09)
[2018-03-21] MEDS: 0.9% NaCl Peripheral Flush Adult/Peds IV (21:11)
[2018-03-21 21:15] LABS: Bedside Glucose 147 mg/dL (70-110)
[2018-03-22] VITALS (27 sets, daily range): BP systolic 102–156; BP diastolic 48–111; PULSE 80–98; RESP 12–21; TEMP 36.7–37.3; O2SAT 95–100; BMI 32.7
--- NOTE | 2018-03-22 01:11 | NURSING ---
Gave report to KARINA Hammonds.
--- NOTE | 2018-03-22 05:55 | EKG12_ITS ---
Test Reason : MORNING EKG Blood Pressure : / mmHG Vent. Rate : 090 BPM Atrial Rate : 090 BPM P-R Int : 152 ms QRS Dur : 078 ms QT Int : 370 ms P-R-T Axes : 056 016 029 degrees QTc Int : 452 ms Normal sinus rhythm Normal ECG When compared with ECG of 21-MAR-2018 06:13, MANUAL COMPARISON REQUIRED, DATA IS UNCONFIRMED Confirmed by RADHIKA ZUNIGA, KELLY ([id number]), graphics editor NITISH CLARKE ([id number]) on 03/26/2018 1:55:43 PM Referred By: KAN Confirmed By:KELLY GARRIDO MD
[2018-03-22] MEDS: Aspirin E.C. 81 MG Tablet PO (06:25)
[2018-03-22] MEDS: CHLORHEXIDINE GLUC 2% CLOTH 1 EACH TOWELETTE TOPICAL (06:25)
[2018-03-22] MEDS: Clopidogrel Bisulfate 75 MG Tablet PO (06:25)
[2018-03-22 06:34] LABS: Absolute Lymphocyte Count 1.62 X10^3/ul (0.83-4.51); Absolute Neutrophil Count 2.9 X10^3/uL (2.0-7.7); Basophil# 0.01 X10^3/uL; Basophil% 0.2 % (0-1); Hematocrit 33.1 % (37-47); Hemoglobin 10.8 g/dl (12.0-15.0); Lymphocyte # 1.62 X10^3/ul (4.0); Lymphocyte % 32.7 % (19-41); Mean Corp Hgb Conc 32.6 g/gl (32-36); Mean Corpuscular Hgb 30.9 pg (27.0-32.0); Mean Corpuscular Volume 94.6 fL (81-99); Mean Platelet Vol. 10.6 fl (6.2-12.0); Monocyte# 0.35 X10^3/uL; Monocyte% 7.1 % (0-10); Neutrophil # 2.87 X10^3/uL (2.7-7.7); Platelet Count 208 K/mm3 (150-450); RBC Distribution Width CV 12.7 % (11.6-14.6); RBC Distribution Width SD 42.6 fl (35.1-43.9)
[2018-03-22 06:47] LABS: POSITIVE COUNT NO; POSITIVE DIFFERENTIAL NO; POSITIVE MORPHOLOGY NO
[2018-03-22 06:51] LABS: International Normalized Ratio 1.1; Prothrombin Time (Protime)PT. 14.1 SECONDS (11.7-14.9)
[2018-03-22 06:52] LABS: Anion Gap 9 (5-15); BUN 15 mg/dL (7-18); BUN/Creat Ratio 16.9 RATIO (10-20); Calcium,Total 8.2 mg/dL (8.5-10.1); Chloride 108 mmol/L (98-107); Creatinine, Serum 0.89 mg/dL (0.55-1.02); EST Glomerular Filtration Rate 68 mL/min (>60); Est Glom Filt Rate - Afr Amer 82 mL/min (>60); Estimated Creatinine Clearance 49.84 ml/min; Glucose 126 mg/dL (74-106); Partial Thromboplast Time 34.1 Seconds (24.1-36.2); Potassium 4.2 mmol/L (3.5-5.1); Sodium Level 143 mmol/L (136-145)
[2018-03-22] MEDS: Carvedilol 3.125 MG TABLET PO ×2 (06:54→21:44)
[2018-03-22] MEDS: Losartan Potassium 25 MG Tablet PO (06:55)
[2018-03-22 07:05] LABS: Bedside Glucose 141 mg/dL (70-110)
--- NOTE | 2018-03-22 07:46 | PCM.PN.CARD ---
Subjectve: Patient seen and evaluated. Underwent cardiac catheterization Objective: Vital Signs Temp Pulse Resp BP Pulse Ox 98.2 F 85 18 102/67 96 03/22/18 06:18 03/22/18 06:18 03/22/18 06:18 03/22/18 06:18 03/22/18 06:54 Oxygen Flow Rate (L/min) 2 Oxygen Delivery Method Room Air Weight: 179 lb 0.246 oz Body Mass Index (BMI) 32.7 Finger Stick Blood Glucose 173 Intake and Output for Last 24 Hours 03/20/18 03/21/18 03/22/18 23:59 23:59 23:59 Intake Total 776.7 / 776.7 360 / 360 Balance 776.7 / 776.7 360 / 360 General: Awake, Alert, Oriented x 3 HEENT: PERRL, EOMI, Sclera Non Icteric Neck: Supple, Good ROM, No Lymph Node Enlargement Lungs: Clear to auscultation Cardiovascular: Regular Rhythm, Normal S1, Normal S2, No Murmurs, No Rubs, No Gallops Vascular: No Carotid Bruits, Normal Femoral Pulses, Normal Radial Pulses, Normal Dorsalis Pedal Pulse, Normal Posterior Tibial Pulses Abdomen: Bowel Sounds Present, Soft, Non Tender, No HSM, No Organomegaly Extremities: No Cyanosis, No Clubbing, No edema Neurological: No Focal Motor or Sensory Deficit 03/22/18 05:58: WBC 5.0, RBC 3.50 L, Hgb 10.8 L, Hct 33.1 L, MCV 94.6, MCH 30.9, MCHC 32.6, RDW 12.7, RDW Differential 42.6, Plt Count 208, MPV 10.6, Immature Gran % (Auto) 0.000, Neut % (Auto) 58.0, Lymph % (Auto) 32.7, [place] % (Auto) 7.1, Eos % (Auto) 2.0, Baso % (Auto) 0.2, Absolute Neuts (auto) 2.9, Total Counted Not Reportable 03/22/18 05:58: Sodium 143, Potassium 4.2, Chloride 108 H, Carbon Dioxide 26.0, Anion Gap 9, BUN 15, Creatinine 0.89, Est GFR (MDRD) Af Amer 82, Est GFR (MDRD) Non-Af 68, BUN/Creatinine Ratio 16.9, Glucose 126 H, Calcium 8.2 L 03/22/18 05:58: PT 14.1, INR 1.1, APTT 34.1 Rhythm: EKG: ECHO: Stress Test: Cardiac Cath: PCI: CT Surgery: Holter monitor: EPS: PPM: CXR: Chest CT Scan: Medical Necessity - Tobacco Use Smoking Status: Never smoker Assessment/Plan 1. Chest pain Patient underwent cardiac catheterization with demonstrated the following: Normal left main coronary artery with mild calcification. Proximal left anterior descending artery stenosis with 70-75% stenosis. Left circumflex artery with mild disease. Distal left anterior descending artery with 75% stenosis. Dominant large right coronary artery with mid 30-40% stenosis and posterior descending artery with ostial 70% stenosis. Preserved left ventricular ejection fraction. Based on the above angiographic findings the patient will be considered for coronary intervention. 2. Hypertension Good control will continue current medical therapy Continue beta-teri and losartan 3. Hyperlipidemia Continue high intensity statin Thank you for allowing me to participate in the care of your patient. Please don't hesitate to call if any issues arise
--- NOTE | 2018-03-22 07:49 | PN.CARD_ITS ---
Subjectve: Patient seen and evaluated. Underwent cardiac catheterization Objective: Vital Signs Temp Pulse Resp BP Pulse Ox 98.2 F 85 18 102/67 96 03/22/18 06:18 03/22/18 06:18 03/22/18 06:18 03/22/18 06:18 03/22/18 06:54 Oxygen Flow Rate (L/min) 2 Oxygen Delivery Method Room Air Weight: 179 lb 0.246 oz Body Mass Index (BMI) 32.7 Finger Stick Blood Glucose 173 Intake and Output for Last 24 Hours 03/20/18 03/21/18 03/22/18 23:59 23:59 23:59 Intake Total 776.7 / 776.7 360 / 360 Balance 776.7 / 776.7 360 / 360 General: Awake, Alert, Oriented x 3 HEENT: PERRL, EOMI, Sclera Non Icteric Neck: Supple, Good ROM, No Lymph Node Enlargement Lungs: Clear to auscultation Cardiovascular: Regular Rhythm, Normal S1, Normal S2, No Murmurs, No Rubs, No Gallops Vascular: No Carotid Bruits, Normal Femoral Pulses, Normal Radial Pulses, Normal Dorsalis Pedal Pulse, Normal Posterior Tibial Pulses Abdomen: Bowel Sounds Present, Soft, Non Tender, No HSM, No Organomegaly Extremities: No Cyanosis, No Clubbing, No edema Neurological: No Focal Motor or Sensory Deficit 03/22/18 05:58: WBC 5.0, RBC 3.50 L, Hgb 10.8 L, Hct 33.1 L, MCV 94.6, MCH 30.9, MCHC 32.6, RDW 12.7, RDW Differential 42.6, Plt Count 208, MPV 10.6, Immature Gran % (Auto) 0.000, Neut % (Auto) 58.0, Lymph % (Auto) 32.7, [place] % (Auto) 7.1, Eos % (Auto) 2.0, Baso % (Auto) 0.2, Absolute Neuts (auto) 2.9, Total Counted Not Reportable 03/22/18 05:58: Sodium 143, Potassium 4.2, Chloride 108 H, Carbon Dioxide 26.0, Anion Gap 9, BUN 15, Creatinine 0.89, Est GFR (MDRD) Af Amer 82, Est GFR (MDRD) Non-Af 68, BUN/Creatinine Ratio 16.9, Glucose 126 H, Calcium 8.2 L 03/22/18 05:58: PT 14.1, INR 1.1, APTT 34.1 Rhythm: EKG: ECHO: Stress Test: Cardiac Cath: PCI: CT Surgery: Holter monitor: EPS: PPM: CXR: Chest CT Scan: Medical Necessity - Tobacco Use Smoking Status: Never smoker Assessment/Plan 1. Chest pain Patient underwent cardiac catheterization with demonstrated the following: Normal left main coronary artery with mild calcification. Proximal left anterior descending artery stenosis with 70-75% stenosis. Left circumflex artery with mild disease. Distal left anterior descending artery with 75% stenosis. Dominant large right coronary artery with mid 30-40% stenosis and posterior descending artery with ostial 70% stenosis. Preserved left ventricular ejection fraction. Based on the above angiographic findings the patient will be considered for coronary intervention. 2. Hypertension * Good control will continue current medical therapy * Continue beta-teri and losartan * 3. Hyperlipidemia * Continue high intensity statin * * Thank you for allowing me to participate in the care of your patient. Please don't hesitate to call if any issues arise
--- NOTE | 2018-03-22 08:16 | CL.D_ITS ---
Patient Name: LACY ALVARADO Study Date: 03/22/2018 Performing: Winston Johnson MD Ht: 61.81 inches 157 cm : 1950 Wt: 178.57 lbs 81 kg Age: 67 Gender: female BSA: 1.82 PROCEDURE(S) PERFORMED XB87-EIX/COR/LV TP55-PHA W OR WO PTCA, SINGLE CORONARY ARTERY CLINICAL PROFILE AND INDICATIONS Indications: Worsening Angina Heart Failure: None Stress/Imaging Stress Test w/SPECT MPI: Yes Result: NegativeStress Test with SPECT MPI: Negative Angina Classification Anginal Classification w/in 2 Weeks: CCS III CAD Presentations: Unstable angina. CONCLUSIONS Moderately severe stenosis noted in the proximal LAD, and distal LAD and mild mid RCA stenosis and si gnificant ostial PDA stenosis. RECOMMENDATIONS Referred for immediate PCI DESCRIPTION OF PROCEDURE The patient arrived to the procedure lab. The risks and benefits of the procedure as well as a full d escription of our services here and current unavailability of surgical backup were fully explained to the patient and/or their significant other prior to the catheterization. The Timeout was completed, verifying the correct patient and procedure. The patient's procedural site was prepped and draped in the usual fashion. Local anesthetic was given subcutaneously to right groin region with Lidocaine 2%. Using a modified Seldinger technique, arterial access was obtained via the right femoral artery, a 5 Fr sheath was inserted. Left Coronary Artery selective angiography was performed in multiple views u sing a 5 Fr. JL4 catheter. Right Coronary Artery selective angiography was then performed in multiple views using a 5 Fr. 3DRC (Tj) catheter. Left Ventriculography was performed in LU projection using a 5 Fr. Pigtail catheter. LV to AO pullback pressures were then recorded. CORONARY ANGIOGRAPHY DOMINANCE: Right Dominant LEFT HEART ASSESSMENT Left Ventricular Ejection Fraction: by LV Gram 70 % Normal LV wall motion Normal Left Ventricular systolic function LEFT MAIN: Angiographically normal LEFT ANTERIOR DECENDING ARTERY: 75 %mid % Stenosis DISTAL LAD: 70 % Stenosis CIRCUMFLEX ARTERY: Mild luminal irregularities RIGHT CORONARY ARTERY: MID RCA: Moderate luminal irregularities up to 50% RT PDA: Ostial - 70 % Stenosis COMPLICATIONS PROCEDURE MEDICATIONS Versed 1 mg IV Versed 1 mg IV Oxygen: 2 L/min via nasal cannula SUMMARY OF HEMODYNAMIC DATA Time AIR REST ECG 07:14:32 AO 102/54 (77) SA 07:27:23 LV 127/-17, 8 07:34:52 LV 124/-15, 3 07:34:58 LV 132/-12, 8 07:36:12 LV 123/-10, 7 07:36:18 LVp 122/-13, 6 07:36:22 AOp 128/60 (89) 07:36:27 Signed By Winston Johnson MD On 03/22/2018 8:16:01 AM Winston Johnson MD
--- NOTE | 2018-03-22 09:05 | CL.I_ITS ---
Patient Name: LACY ALVARADO Study Date: 03/22/2018 Performing: Mikey Reynaga MD Ht: 61.81 inches 157 cm : 1950 Wt: 178.57 lbs 81 kg Age: 67 Gender: female BSA: 1.82 PROCEDURE(S) PERFORMED [id number] W OR WO PTCA, SINGLE CORONARY ARTERY CLINICAL PROFILE AND CO-MORBIDITIES Indications: Worsening Angina, ACS <= 24 hrs, Worsening Angina, Suspected CAD, ACS > 24 hrs Heart Failure: None Stress/Imaging Stress Test w/SPECT MPI: Yes Result: Negative Stress Test with SPECT MPI: Negative Angina Classification Anginal Classification w/in 2 Weeks: CCS III CAD Presentations: Unstable angina. Unstable angina. Unstable angina. Comorbidities/Risk Factors: Hypertension Dyslipidemia Diabetes Mellitus: Diabetes Therapy: Oral Hypertension Dyslipidemia Prior PCI CONCLUSIONS Successful PTCA/YESENIA mid LAD with a 3.0 x 38 Promus Synergy, post dilated with a 3.0 x 12 NC balloon, 75%-->0%, no dissection. RECOMMENDATIONS Highly recommend quitting all tobacco products Follow up with primary education program associate Risk factor modification ASA Indefinitley Plavix for at least 12 months Routine post interventional care Refer for Outpatient Cardiac Rehab Manual sheath removal per protocol Follow up with Dr. Johnson Medical management of ostial PDA unless or until pt has recurrent exertional angina and/or inferior i schemia on stress testing. Too thin for Mynx; manual sheath removal. Highly recommend quitting all tobacco products Follow up with primary education program associate Risk factor modification ASA Indefinitley Plavix for at least 12 months Routine post interventional care Refer for Outpatient Cardiac Rehab Manual sheath removal per protocol Follow up with Dr. Johnson DESCRIPTION OF PROCEDURE The patient arrived to the procedure lab. The risks and benefits of the procedure as well as a full d escription of our services here and current unavailability of surgical backup were fully explained to the patient and/or their significant other prior to the catheterization. The Timeout was completed, verifying the correct patient and procedure. The patient's procedural site was prepped and draped in the usual fashion. Local anesthetic was given subcutaneously to right groin region with Lidocaine 2% Using a modified Seldinger technique,arterial access was obtained via the right femoral artery, a 5Fr sheath was inserted. Left Coronary Artery selective angiography was performed in multiple views usin g a 5 Fr. JL4 catheter. Right Coronary Artery selective angiography was then performed in multiple vi ews using a 5 Fr. 3DRC (Tj) catheter. Left Ventriculography was performed in LU projection usi ng a 5 Fr. Pigtail catheter. LV to AO pullback pressures were then recorded.The images were reviewed and options discussed. A decision was then made to proceed with an Intervention, IVUS o r other adjunct procedure. Arterial sheath was exchanged for a 6 Fr Sheath. EBU 3.5 Guide catheter was inserted and engaged into the LCA. BMW Boston Guide wire was advanced to the LAD. 2.0 x 12 Emerge Balloon catheter was inserted. Balloon catheter was advanced across lesion in the LAD, mid. Angiogram performed pre balloo n dilatation. PTCA balloon inflated at 6 atms for 29 secs. Angiogram performed post balloon dilatatio n. 3.0 x 38 Synergy Drug Eluting stent was inserted. Drug Eluting stent was advanced across the lesio n in the LAD, mid. Angiogram performed pre stent deployment. Angiogram performed post stent deploymen t. 3.0 x 12 NC Emerge Balloon catheter was inserted. Balloon catheter was advanced across lesion in t he LAD, mid. Angiogram performed post balloon dilatation. Angiogram performed post balloon dilatation . The arterial sheath was sutured in place and capped INTERVENTION INFORMATION LESION SITE: LAD (Mid) Lesion Complexity: High/C, lesion at bifurcation: No, thrombus present: No, lesion length: 38 mm, cul prit lesion: Yes, Lesion Complexity: High/C, lesion at bifurcation: No, thrombus present: No, lesion length: 38 mm, culprit lesion: Yes, In-stent restenosis: Yes Pre Stenosis: 75 % Pre intervention DONYA flow: 3 PROCEDURE: Drug Eluting Stent with pre and post dilatation, Drug Eluting Stent with pre and post dilatation Post Stenosis: 0 % Post intervention DONYA flow: 3 Lesion Devices: [place] .014 BMW [place] Straight 190cm Medtronic 6 Fr EBU3.5 100cm Guide Catheter Darci Sci EMERGE MR 2.00x12 BALLOON Darci Sci Synergy MR YESENIA 3.00x38 Darci Sci NC EMERGE MR 3.00x12 BALLOON COMPLICATIONS No Complications PROCEDURE MEDICATIONS Versed 1 mg IV Versed 1 mg IV Oxygen: 2 L/min via nasal cannula Heparin 6000 unit(s) IV 03/22/2018 08:37:51 Nitro 200 mcg IC 03/22/2018 08:50:27 IV Bolus: .9 NaCl 400 ml total 03/22/2018 08:38:48 IV Fluids: .9 NaCl decreased to 150 ml/hr 03/22/2018 08:54:04 SUMMARY OF HEMODYNAMIC DATA Time AIR REST ECG 07:14:32 AO 102/54 (77) SA 07:27:23 LV 127/-17, 8 07:34:52 LV 124/-15, 3 07:34:58 LV 132/-12, 8 07:36:12 LV 123/-10, 7 07:36:18 LVp 122/-13, 6 07:36:22 AOp 128/60 (89) 07:36:27 Signed By Mikey Reynaga MD On 09/21/2018 09:09:49 Signed By Mikey Reynaga MD On 03/22/2018 10:15:19 Mikey Reynaga MD
[2018-03-22] MEDS: 0.9% Normal Saline 1,000 ML 150 ML IV (09:30)
--- NOTE | 2018-03-22 09:32 | EKG12_ITS ---
Test Reason : POST PCI Blood Pressure : / mmHG Vent. Rate : 084 BPM Atrial Rate : 084 BPM P-R Int : 154 ms QRS Dur : 076 ms QT Int : 370 ms P-R-T Axes : 073 033 039 degrees QTc Int : 437 ms Normal sinus rhythm Normal ECG When compared with ECG of 22-MAR-2018 05:41, MANUAL COMPARISON REQUIRED, DATA IS UNCONFIRMED Confirmed by RADHIKA ZUNIGA, KELLY ([id number]), purchase request editor NITISH CLARKE ([id number]) on 03/26/2018 2:05:22 PM Referred By: ARA Confirmed By:KELLY GARRIDO MD
[2018-03-22 10:21] LABS: ACT Activated Clotting Time 208 sec (74-137)
--- NOTE | 2018-03-22 10:40 | PCM.PROGNOTE ---
<Farhat Norris - Last Filed: 03/22/18 10:40> Patient Problems: Active and Suspected Problems (Last Reviewed 03/20/18 @ 21:48 by Parker Meléndez MD) Chest pain (Acute) Subjective: Pt resting comfortably in bed s/p cath and stenting x3 this am. Mild midsternal nonradiating CP currently. No Dizziness/LH, Headache, SOB, nausea, radiating pain. - Physical Exam General: Alert, Oriented x3, Cooperative HEENT: Atraumatic, PERRLA, EOMI, Normocephalic Neck: Supple, No JVD, Negative Carotid Bruits Lungs: Clear to auscultation, Normal air movement Cardiovascular: Regular rate, No murmurs Abdomen: Bowel Sounds Present, Soft, Non Tender Extremities: No edema, Capillary Refill Less than 3 Seconds Skin: No rashes, No breakdown Musculoskeletal: No Tenderness to Palpation of Joints or Extremities Neurological: Cranial nerves II-XII grossly intact Psych/Mental Status: Normal Affect, Appropriate, Alert and oriented to time, place, person, mood and affect Vital Signs Temp Pulse Resp BP Pulse Ox 98.2 F 80 19 H 122/59 H 98 03/22/18 09:15 03/22/18 09:45 03/22/18 09:45 03/22/18 09:45 03/22/18 09:45 Oxygen Flow Rate (L/min) 2 Oxygen Delivery Method Room Air Weight: 179 lb 0.246 oz Body Mass Index (BMI) 32.7 Finger Stick Blood Glucose 173 Intake and Output for Last 24 Hours 03/20/18 03/21/18 03/22/18 23:59 23:59 23:59 Intake Total 776.7 / 776.7 360 / 360 Balance 776.7 / 776.7 360 / 360 Laboratory Tests Past 24 Hrs 03/22/18 03/22/18 03/22/18 05:58 05:58 05:58 WBC 5.0 RBC 3.50 L Hgb 10.8 L Hct 33.1 L MCV 94.6 MCH 30.9 MCHC 32.6 RDW 12.7 RDW Differential 42.6 Plt Count 208 MPV 10.6 Immature Gran % (Auto) 0.000 Neut % (Auto) 58.0 Lymph % (Auto) 32.7 [place] % (Auto) 7.1 Eos % (Auto) 2.0 Baso % (Auto) 0.2 Absolute Neuts (auto) 2.9 Absolute Lymphs (auto) 1.62 Total Counted Not Reportable PT 14.1 INR 1.1 APTT 34.1 Activated Clotting Time Sodium 143 Potassium 4.2 Chloride 108 H Carbon Dioxide 26.0 Anion Gap 9 BUN 15 Creatinine 0.89 Estim Creat Clear Calc 49.84 Est GFR (MDRD) Af Amer 82 Est GFR (MDRD) Non-Af 68 BUN/Creatinine Ratio 16.9 Glucose 126 H Calcium 8.2 L 03/22/18 08:54 WBC RBC Hgb Hct MCV MCH MCHC RDW RDW Differential Plt Count MPV Immature Gran % (Auto) Neut % (Auto) Lymph % (Auto) [place] % (Auto) Eos % (Auto) Baso % (Auto) Absolute Neuts (auto) Absolute Lymphs (auto) Total Counted PT INR APTT Activated Clotting Time 208 H Sodium Potassium Chloride Carbon Dioxide Anion Gap BUN Creatinine Estim Creat Clear Calc Est GFR (MDRD) Af Amer Est GFR (MDRD) Non-Af BUN/Creatinine Ratio Glucose Calcium POC Glucose 03/22/18 03/21/18 03/21/18 06:56 21:03 16:01 POC Glucose 141 H 147 H 173 H 03/21/18 11:51 POC Glucose 118 H Medical Necessity - Tobacco Use Smoking Status: Never smoker Assessment/Plan All Active Problems (Last Reviewed 03/20/18 @ 21:48 by Parker Meléndez MD) Chest pain (Acute) Dyspnea on exertion (Acute) Allergic conjunctivitis and rhinitis (Acute) Non-toxic multinodular goiter (Acute) 1. Unstable angina/CAD s/p PTCA to mid LAD, mid ISR, proximal RCA. Continue Asa, plavix, statin, coreg, ARB. No further verapimil or nitro. BP stable. 2. HTN - improved 3. DMt2 - SSI, hold metformin x 5 days. 4. HLD - statin maximized 5. Hx LINA 6. RA - plaquenil 7. Hx Seizures - depakote DVT ppx: SCDs DC planning: likely home tomorrow This patient was seen by Farhat Norris PA-C under the supervision of Dr. Lovett <Dennys Lovett - Last Filed: 03/22/18 11:13> Subjective: Seen and examined. Patient had a stent in RCA this time. Patient has venous sheath in right femoral artery scheduled to be removed today. - Physical Exam General: Alert, Oriented x3, Cooperative HEENT: Atraumatic, PERRLA, EOMI, Normocephalic Neck: Supple, No JVD, Negative Carotid Bruits Lungs: Clear to auscultation, Normal air movement Cardiovascular: Regular rate, Regular Rhythm, Normal S1, Normal S2, No murmurs Abdomen: Bowel Sounds Present, Soft, Non Tender, Non-Distended Extremities: No edema, Capillary Refill Less than 3 Seconds Skin: No rashes, No breakdown, - - Right groin femoral sheath present. No hematoma. Musculoskeletal: No Tenderness to Palpation of Joints or Extremities Neurological: Cranial nerves II-XII grossly intact, Deep Tendon Reflexes 2+/4 and Symmetrical Psych/Mental Status: Normal Affect, Appropriate Vital Signs Temp Pulse Resp BP Pulse Ox 98.2 F 80 19 H 122/59 H 98 03/22/18 09:15 03/22/18 09:45 03/22/18 09:45 03/22/18 09:45 03/22/18 09:45 Oxygen Flow Rate (L/min) 2 Oxygen Delivery Method Room Air Weight: 179 lb 0.246 oz Body Mass Index (BMI) 32.7 Finger Stick Blood Glucose 173 Intake and Output for Last 24 Hours 03/20/18 03/21/18 03/22/18 23:59 23:59 23:59 Intake Total 776.7 / 776.7 360 / 360 Balance 776.7 / 776.7 360 / 360 Laboratory Tests Past 24 Hrs 03/22/18 03/22/18 03/22/18 05:58 05:58 05:58 WBC 5.0 RBC 3.50 L Hgb 10.8 L Hct 33.1 L MCV 94.6 MCH 30.9 MCHC 32.6 RDW 12.7 RDW Differential 42.6 Plt Count 208 MPV 10.6 Immature Gran % (Auto) 0.000 Neut % (Auto) 58.0 Lymph % (Auto) 32.7 [place] % (Auto) 7.1 Eos % (Auto) 2.0 Baso % (Auto) 0.2 Absolute Neuts (auto) 2.9 Absolute Lymphs (auto) 1.62 Total Counted Not Reportable PT 14.1 INR 1.1 APTT 34.1 Activated Clotting Time Sodium 143 Potassium 4.2 Chloride 108 H Carbon Dioxide 26.0 Anion Gap 9 BUN 15 Creatinine 0.89 Estim Creat Clear Calc 49.84 Est GFR (MDRD) Af Amer 82 Est GFR (MDRD) Non-Af 68 BUN/Creatinine Ratio 16.9 Glucose 126 H Calcium 8.2 L 03/22/18 08:54 WBC RBC Hgb Hct MCV MCH MCHC RDW RDW Differential Plt Count MPV Immature Gran % (Auto) Neut % (Auto) Lymph % (Auto) [place] % (Auto) Eos % (Auto) Baso % (Auto) Absolute Neuts (auto) Absolute Lymphs (auto) Total Counted PT INR APTT Activated Clotting Time 208 H Sodium Potassium Chloride Carbon Dioxide Anion Gap BUN Creatinine Estim Creat Clear Calc Est GFR (MDRD) Af Amer Est GFR (MDRD) Non-Af BUN/Creatinine Ratio Glucose Calcium POC Glucose 03/22/18 03/21/18 03/21/18 06:56 21:03 16:01 POC Glucose 141 H 147 H 173 H 03/21/18 11:51 POC Glucose 118 H Assessment/Plan This patient was seen in conjunction with Farhat LÓPEZ. I have independently interviewed and examined the patient and reviewed pertinent history, examination findings, laboratory and plan of management. I have reviewed the note and agree with the documented findings with the few additional points. In brief, patient is admitted for unstable angina. Patient had negative nuclear stress MPI. Subsequently had cardiac cath and had stent in mid LAD, mid in-stent restenosis and proximal RCA. Patient is recommended aspirin indefinitely and Plavix for at least 12 months. Manual sheath removal as per protocol. Fasting lipid profile shows triglyceride 116, total cholesterol 168, LDL 106, HDL 39. On high intensity statin. I have discussed my assessment with Farhat LÓPEZ and orders have been reviewed. Code Visit Inpatient E&M: 92216 Subs Hosp L3
--- NOTE | 2018-03-22 10:47 | CRPHASE1 ---
Patient Data/Charges Recruitment Director:: Mikey Reynaga Refer Phase II:: Yes Phase II Referral:: [facility] Start Phase II:: after follow up visit with Recruitment Director Phase I Charge:: Level I - Education Risk Factors/Lifestyle Smoking Status: Never smoker Hx Hypertension: Yes Hx Diabetes Mellitus Type 2: Yes Hx Dyslipidemia: Yes Hx Obesity: Yes Height: 5 ft 2 in Weight:: 179 lb BMI: 32.7 Post-Menopausal: Yes Risk Factor for Sedentary Lifestyle: Moderate Risk Family History: Family History (Last Reviewed 03/21/18 @ 01:23 by Parker Meléndez MD) Grandmother Alcoholism Cancer Arthritis Mother Alcoholism Diabetes blood clots Hypertension Grandfather Heart disease Sister Thyroid disorder Other Breast cancer Cervical cancer Colon cancer Family History: Cancer, Diabetes, Heart Disease, Hypertension Laboratory Values: Cardiac Rehab Phase I Labs Triglycerides 116 mg/dL (-199) 03/21/18 06:07 Cholesterol 168 mg/dL (200) 03/21/18 06:07 LDL Cholesterol 106 mg/dL (0-130) 03/21/18 06:07 HDL Cholesterol 39 mg/dL (40-) L 03/21/18 06:07 Phase I Education Given On:: [place], Nutrition, Antiplatelet medication, CHF, Diabetes - Type II Issues Affecting Care:: None Knowledge of Condition:: Yes Learning Preferences: Verbal, Written, Audio/Visual, Demonstration Medical/Surgical History CAD:: Yes LINA:: Yes Diabetes Type II:: Yes Hypertension:: Yes Dyslipidemia:: Yes Arthritis:: Yes
--- NOTE | 2018-03-22 10:51 | CRPHASE1_ITS ---
Patient Data/Charges Photographic Enlarger Operator:: Mikey Reynaga Refer Phase II:: Yes Phase II Referral:: [facility] Start Phase II:: after follow up visit with Photographic Enlarger Operator Phase I Charge:: Level I - Education Risk Factors/Lifestyle Smoking Status: Never smoker Hx Hypertension: Yes Hx Diabetes Mellitus Type 2: Yes Hx Dyslipidemia: Yes Hx Obesity: Yes Height: 5 ft 2 in Weight:: 179 lb BMI: 32.7 Post-Menopausal: Yes Risk Factor for Sedentary Lifestyle: Moderate Risk Family History: Family History (Last Reviewed 03/21/18 @ 01:23 by Parker Meléndez MD) Grandmother Alcoholism Cancer Arthritis Mother Alcoholism Diabetes blood clots Hypertension Grandfather Heart disease Sister Thyroid disorder Other Breast cancer Cervical cancer Colon cancer Family History: Cancer, Diabetes, Heart Disease, Hypertension Laboratory Values: Cardiac Rehab Phase I Labs Triglycerides 116 mg/dL (-199) 03/21/18 06:07 Cholesterol 168 mg/dL (200) 03/21/18 06:07 LDL Cholesterol 106 mg/dL (0-130) 03/21/18 06:07 HDL Cholesterol 39 mg/dL (40-) L 03/21/18 06:07 Phase I Education Given On:: [place], Nutrition, Antiplatelet medication, CHF, Diabetes - Type II Issues Affecting Care:: None Knowledge of Condition:: Yes Learning Preferences: Verbal, Written, Audio/Visual, Demonstration Medical/Surgical History CAD:: Yes LINA:: Yes Diabetes Type II:: Yes Hypertension:: Yes Dyslipidemia:: Yes Arthritis:: Yes
--- NOTE | 2018-03-22 11:02 | CRPH1.INSTRU ---
General Education CAD and cardiac anatomy and function:: Patient communicates acknowledgment, Needs reinforcement Explanation of diagnoses and procedures:: Patient communicates acknowledgment, Needs reinforcement Sign/Symptoms of MD:: Patient communicates acknowledgment, Needs reinforcement Antiplatelet therapy: Patient communicates acknowledgment, Needs reinforcement Proper use of NTG-SL: Patient communicates acknowledgment, Needs reinforcement Emergency procedures and activation of EMS: Patient communicates acknowledgment, Needs reinforcement Compliance of all prescribed medications: Patient communicates acknowledgment, Needs reinforcement Smoking Patient Nicotine/Smoking Risk Factors Are:: Never smoked Recommendations Include:: Second-hand smoke recommendation Nicotine/Smoking Response Code:: Patient communicates acknowledgment Dyslipidemia Patient Dyslipidemia Risk Factors Are:: Total Cholesterol, Triglycerides, HDL, LDL Recommendations Include:: Lipid profile provided Dyslipidemia Response Code:: Patient communicates acknowledgment, Needs reinforcement Overweight/Obesity Patient Overweight/Obesity Risk Factors Are:: Obesity - > or = 30 Recommendations Include:: Weight loss of 5-10%, Reduced calorie diet, Exercise 5-7 times/week Overweight/Obesity:: Patient communicates acknowledgment, Needs reinforcement Hypertension Recommendations Include:: BP <130/80 if diabetic, DASH dietary guidelines, Decrease/maintain normal body weight Hypertension:: Patient communicates acknowledgment, Needs reinforcement Heart Disease Patient Heart Disease Risk Factors Are:: Family history of heart disease < 65 years old Recommendations Include:: Educated family members of their risk, Educated family members of importance of prevention of heart disease Heart Disease Response Code:: Patient communicates acknowledgment, Needs reinforcement Diabetes Patient Diabetes Risk Factors Are:: Elevated blood sugars Recommendations Include:: Maintain fasting blood sugars 70-110 md/dL, Maintain HgbA1c of 6% or less, Monitor blood sugar as prescribed, Diabetic dietary guidelines, Decrease/maintain body weight Diabetes:: Patient communicates acknowledgment, Needs reinforcement Metabolic Syndrome Recommendations Include:: Patient is diabetic Metabolic Syndrome Response Code:: Not instructed Sedentary Recommendations Include:: Aerobic exercise 5-7 times/week for 20-30 minutes continuously, Benefits of regular exercise, Discussed home walking program, Monitored Outpatient Cardiac Rehab Sedentary Response Code:: Patient communicates acknowledgment, Needs reinforcement Stress Patient Stress Risk Factors Are:: Patient denies stress as a risk factor Stress Response Code:: Patient communicates acknowledgment, Needs reinforcement
--- NOTE | 2018-03-22 11:06 | CRPH1.INST_ITS ---
General Education CAD and cardiac anatomy and function:: Patient communicates acknowledgment, Needs reinforcement Explanation of diagnoses and procedures:: Patient communicates acknowledgment, Needs reinforcement Sign/Symptoms of ME:: Patient communicates acknowledgment, Needs reinforcement Antiplatelet therapy: Patient communicates acknowledgment, Needs reinforcement Proper use of NTG-SL: Patient communicates acknowledgment, Needs reinforcement Emergency procedures and activation of EMS: Patient communicates acknowledgment, Needs reinforcement Compliance of all prescribed medications: Patient communicates acknowledgment, Needs reinforcement Smoking Patient Nicotine/Smoking Risk Factors Are:: Never smoked Recommendations Include:: Second-hand smoke recommendation Nicotine/Smoking Response Code:: Patient communicates acknowledgment Dyslipidemia Patient Dyslipidemia Risk Factors Are:: Total Cholesterol, Triglycerides, HDL, LDL Recommendations Include:: Lipid profile provided Dyslipidemia Response Code:: Patient communicates acknowledgment, Needs reinforcement Overweight/Obesity Patient Overweight/Obesity Risk Factors Are:: Obesity - > or = 30 Recommendations Include:: Weight loss of 5-10%, Reduced calorie diet, Exercise 5-7 times/week Overweight/Obesity:: Patient communicates acknowledgment, Needs reinforcement Hypertension Recommendations Include:: BP <130/80 if diabetic, DASH dietary guidelines, Decrease/maintain normal body weight Hypertension:: Patient communicates acknowledgment, Needs reinforcement Heart Disease Patient Heart Disease Risk Factors Are:: Family history of heart disease < 65 ye ars old Recommendations Include:: Educated family members of their risk, Educated family members of importance of prevention of heart disease Heart Disease Response Code:: Patient communicates acknowledgment, Needs reinforcement Diabetes Patient Diabetes Risk Factors Are:: Elevated blood sugars Recommendations Include:: Maintain fasting blood sugars 70-110 md/dL, Maintain HgbA1c of 6% or less, Monitor blood sugar as prescribed, Diabetic dietary guidelines, Decrease/maintain body weight Diabetes:: Patient communicates acknowledgment, Needs reinforcement Metabolic Syndrome Recommendations Include:: Patient is diabetic Metabolic Syndrome Response Code:: Not instructed Sedentary Recommendations Include:: Aerobic exercise 5-7 times/week for 20-30 minutes continuously, Benefits of regular exercise, Discussed home walking program, Monitored Outpatient Cardiac Rehab Sedentary Response Code:: Patient communicates acknowledgment, Needs reinforcement Stress Patient Stress Risk Factors Are:: Patient denies stress as a risk factor Stress Response Code:: Patient communicates acknowledgment, Needs reinforcement
[2018-03-22 11:11] LABS: ACT Activated Clotting Time 147 sec (74-137)
--- NOTE | 2018-03-22 13:15 | CASEMGMT ---
KARINA BRYANT INITIAL ASSESSMENT D/C PLAN: Home. Plans are for pt to be discharged on Plavix and ASA post PCI. Face to Face with patient for initial transition planning/care coordination assessment. KARINA BRYANT introduced self and role at [facility]. Pt resting quietly in bed, awake/alert/oriented. Willing to participate in assessment and able to answer all questions appropriately. Care providers, pharmacy, and demographics verified. PCP: Jose Preferred Pharmacy: [facility] [place], [facility] Retail day of d/c only. States would like to find out which pharmacy her meds would be cheapest at. Informed her that CM can do a bennett check for comparison once physicians send prescriptions to pharmacy. Pt gave KARINA BRYANT her prescription card. Copy made and tubed down to [facility] Retail pharmacy so they have it on file. Pt given back her prescription card and put it back in her purse. [facility] Pres[facility] Benefit: [place] Living Will/HPOA: Does not have either. Interested in information and talking to SW. Given AD info packet and EVIN Meier, made aware. LNOK: Son, Aleksandr. Living Arrangements: Lives in 3rd story of an apt. States does not have an elevator and that she uses the stairs to get to her apt. She states she is able to navigate them well and states she has no concerns with the stairs once she returns home. She states, i plan on just taking them slowly. 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 Pt states she does have financial concerns and is interested in talking with SW. Referral made to for financial needs in addition to AD. Pt states she is independent @ home w/ADL's and home mgmt tasks. Transportation: Pt states she does not drive and that she uses public transportation. States a lady from her [facility] is able to take her home on discharge. Made aware of [facility] van transportation for future appts with [facility] healthcare services and physicians. Info sheet of [facility] transportation provided. DME: Walks independently without a cane or walker. States she has a CPAP but that she has not worn it in about a year. Pt reports that she knows she should be wearing it and plans on making an appt with her doctor to see about starting it back up. Made aware [facility] can apply CPAP tonight for her if she wishes. Pt declines at this time. Informed her to notify staff if she changes her mind. States does not use any other medical equipment and denies other needs. HHC/SNF: States no history of either and denies needs. No needs identified. Pt wishes to return home. CM to follow for any further discharge planning needs that may arise. Lee FENTON RN, CM
--- NOTE | 2018-03-22 15:29 | CASEMGMT ---
RN ANNETTE said patient wanted to complete advance directives and she had some financial concerns. SW met with patient introduced self and role at [facility]. Healthcare POA and Healthcare Living Will were completed, copies made. Original and copies given to patient and one set was placed in patient's medical chart. Patient could not remember what her financial concerns were. Renea VILLARREAL MSW
[2018-03-22] MEDS: Acetaminophen 325 MG Tablet 650 MG PO (16:45)
[2018-03-22] MEDS: Gabapentin 600 MG Tablet PO ×2 (16:46→21:45)
[2018-03-22] MEDS: Hydroxychloroquine 200 MG Tablet PO (16:46)
[2018-03-22] MEDS: Pantoprazole Sodium 20 MG Tablet PO (16:46)
[2018-03-22 16:56] LABS: Bedside Glucose 68 mg/dL (70-110)
[2018-03-22 17:01] LABS: Bedside Glucose 105 mg/dL (70-110)
[2018-03-22] MEDS: Divalproex (ER) 500 MG Tablet 1000 MG PO (21:44)
[2018-03-22] MEDS: Atorvastatin Calcium 80 MG Tablet PO (21:45)
[2018-03-22 21:51] LABS: Bedside Glucose 119 mg/dL (70-110)
[2018-03-23] VITALS (14 sets, daily range): BP systolic 94–126; BP diastolic 48–60; PULSE 76–88; RESP 13–20; TEMP 36.5–36.9; O2SAT 96–100
[2018-03-23] MEDS: 0.9% NaCl Peripheral Flush Adult/Peds IV (04:02)
[2018-03-23 04:19] LABS: Hematocrit 33.5 % (37-47); Mean Corp Hgb Conc 32.8 g/gl (32-36); Mean Corpuscular Hgb 31.3 pg (27.0-32.0); Mean Corpuscular Volume 95.2 fL (81-99); Mean Platelet Vol. 10.3 fl (6.2-12.0); Platelet Count 208 K/mm3 (150-450); RBC Distribution Width CV 12.9 % (11.6-14.6); RBC Distribution Width SD 43.2 fl (35.1-43.9); Red Blood Count 3.52 M/mm3 (4.2-5.4)
[2018-03-23 04:26] LABS: Scan Indicated on CBC? Y/N NO
[2018-03-23 04:27] LABS: Anion Gap 10 (5-15); BUN 14 mg/dL (7-18); BUN/Creat Ratio 16.7 RATIO (10-20); Calcium,Total 8.3 mg/dL (8.5-10.1); Chloride 109 mmol/L (98-107); Creatinine, Serum 0.84 mg/dL (0.55-1.02); EST Glomerular Filtration Rate 72 mL/min (>60); Est Glom Filt Rate - Afr Amer 87 mL/min (>60); Estimated Creatinine Clearance 52.81 ml/min; Glucose 86 mg/dL (74-106); Sodium Level 146 mmol/L (136-145)
[2018-03-23 06:51] LABS: Bedside Glucose 94 mg/dL (70-110)
--- NOTE | 2018-03-23 07:52 | PCM.PN.CARD ---
Subjectve: Patient seen and evaluated. Objective: Vital Signs Temp Pulse Resp BP Pulse Ox 98.1 F 78 18 103/48 L 98 03/23/18 04:00 03/23/18 07:33 03/23/18 07:00 03/23/18 07:00 03/23/18 07:21 Oxygen Flow Rate (L/min) 2 Oxygen Delivery Method Room Air Weight: 179 lb Body Mass Index (BMI) 32.7 Finger Stick Blood Glucose 173 Intake and Output for Last 24 Hours 03/21/18 03/22/18 03/23/18 23:59 23:59 23:59 Intake Total 776.7 / 776.7 1360 / 1360 360 / 360 Output Total 950 / 950 0 / 0 Balance 776.7 / 776.7 410 / 410 360 / 360 General: Awake, Alert, Oriented x 3 HEENT: PERRL, EOMI, Sclera Non Icteric Neck: Supple, Good ROM, No Lymph Node Enlargement Lungs: Clear to auscultation Cardiovascular: Regular Rhythm, Normal S1, Normal S2, No Murmurs, No Rubs, No Gallops Vascular: No Carotid Bruits, Normal Femoral Pulses, Normal Radial Pulses, Normal Dorsalis Pedal Pulse, Normal Posterior Tibial Pulses Abdomen: Bowel Sounds Present, Soft, Non Tender, No HSM, No Organomegaly Extremities: No Cyanosis, No Clubbing, No edema Musculoskeletal: No Erythema Neurological: No Focal Motor or Sensory Deficit Psych/Mental Status: Appropriate 03/23/18 04:08: WBC 6.0, RBC 3.52 L, Hgb 11.0 L, Hct 33.5 L, MCV 95.2, MCH 31.3, MCHC 32.8, RDW 12.9, RDW Differential 43.2, Plt Count 208, MPV 10.3 03/23/18 04:08: Sodium 146 H, Potassium 4.0, Chloride 109 H, Carbon Dioxide 27.0, Anion Gap 10, BUN 14, Creatinine 0.84, Est GFR (MDRD) Af Amer 87, Est GFR (MDRD) Non-Af 72, BUN/Creatinine Ratio 16.7, Glucose 86, Calcium 8.3 L Rhythm: EKG: ECHO: Stress Test: Cardiac Cath: PCI: CT Surgery: Holter monitor: EPS: PPM: CXR: Chest CT Scan: Medical Necessity - Tobacco Use Smoking Status: Never smoker Assessment/Plan 1. Chest pain Patient underwent cardiac catheterization with demonstrated the following: Normal left main coronary artery with mild calcification. Proximal left anterior descending artery stenosis with 70-75% stenosis. Left circumflex artery with mild disease. Distal left anterior descending artery with 75% stenosis. Dominant large right coronary artery with mid 30-40% stenosis and posterior descending artery with ostial 70% stenosis. Preserved left ventricular ejection fraction. Patient underwent coronary intervention successfully with a drug-eluting stent to the proximal left anterior descending artery. The hemoglobin today appears to be stable, no EKG changes are noted and creatinine is also stable. The patient will be discharged for outpatient follow-up on her current medications. 2. Hypertension Good control will continue current medical therapy Continue beta-teri and losartan 3. Hyperlipidemia Continue high intensity statin Thank you for allowing me to participate in the care of your patient. Please don't hesitate to call if any issues arise
--- NOTE | 2018-03-23 07:55 | PN.CARD_ITS ---
Subjectve: Patient seen and evaluated. Objective: Vital Signs Temp Pulse Resp BP Pulse Ox 98.1 F 78 18 103/48 L 98 03/23/18 04:00 03/23/18 07:33 03/23/18 07:00 03/23/18 07:00 03/23/18 07:21 Oxygen Flow Rate (L/min) 2 Oxygen Delivery Method Room Air Weight: 179 lb Body Mass Index (BMI) 32.7 Finger Stick Blood Glucose 173 Intake and Output for Last 24 Hours 03/21/18 03/22/18 03/23/18 23:59 23:59 23:59 Intake Total 776.7 / 776.7 1360 / 1360 360 / 360 Output Total 950 / 950 0 / 0 Balance 776.7 / 776.7 410 / 410 360 / 360 General: Awake, Alert, Oriented x 3 HEENT: PERRL, EOMI, Sclera Non Icteric Neck: Supple, Good ROM, No Lymph Node Enlargement Lungs: Clear to auscultation Cardiovascular: Regular Rhythm, Normal S1, Normal S2, No Murmurs, No Rubs, No Gallops Vascular: No Carotid Bruits, Normal Femoral Pulses, Normal Radial Pulses, Normal Dorsalis Pedal Pulse, Normal Posterior Tibial Pulses Abdomen: Bowel Sounds Present, Soft, Non Tender, No HSM, No Organomegaly Extremities: No Cyanosis, No Clubbing, No edema Musculoskeletal: No Erythema Neurological: No Focal Motor or Sensory Deficit Psych/Mental Status: Appropriate 03/23/18 04:08: WBC 6.0, RBC 3.52 L, Hgb 11.0 L, Hct 33.5 L, MCV 95.2, MCH 31.3, MCHC 32.8, RDW 12.9, RDW Differential 43.2, Plt Count 208, MPV 10.3 03/23/18 04:08: Sodium 146 H, Potassium 4.0, Chloride 109 H, Carbon Dioxide 27.0, Anion Gap 10, BUN 14, Creatinine 0.84, Est GFR (MDRD) Af Amer 87, Est GFR (MDRD) Non-Af 72, BUN/Creatinine Ratio 16.7, Glucose 86, Calcium 8.3 L Rhythm: EKG: ECHO: Stress Test: Cardiac Cath: PCI: CT Surgery: Holter monitor: EPS: PPM: CXR: Chest CT Scan: Medical Necessity - Tobacco Use Smoking Status: Never smoker Assessment/Plan 1. Chest pain Patient underwent cardiac catheterization with demonstrated the following: Normal left main coronary artery with mild calcification. Proximal left anterior descending artery stenosis with 70-75% stenosis. Left circumflex artery with mild disease. Distal left anterior descending artery with 75% stenosis. Dominant large right coronary artery with mid 30-40% stenosis and posterior descending artery with ostial 70% stenosis. Preserved left ventricular ejection fraction. Patient underwent coronary intervention successfully with a drug-eluting stent to the proximal left anterior descending artery. The hemoglobin today appears to be stable, no EKG changes are noted and creatinine is also stable. The patient will be discharged for outpatient follow-up on her current medications. 2. Hypertension * Good control will continue current medical therapy * Continue beta-teri and losartan * 3. Hyperlipidemia * Continue high intensity statin * * Thank you for allowing me to participate in the care of your patient. Please don't hesitate to call if any issues arise
[2018-03-23] MEDS: Hydroxychloroquine 200 MG Tablet PO (08:09)
[2018-03-23] MEDS: Aspirin E.C. 81 MG Tablet PO (08:09)
[2018-03-23] MEDS: Clopidogrel Bisulfate 75 MG Tablet PO (08:10)
[2018-03-23] MEDS: Losartan Potassium 25 MG Tablet PO (08:10)
[2018-03-23] MEDS: Gabapentin 600 MG Tablet PO (08:11)
[2018-03-23] MEDS: Carvedilol 3.125 MG TABLET PO (08:11)
[2018-03-23] MEDS: Pantoprazole Sodium 20 MG Tablet PO (08:12)
--- NOTE | 2018-03-23 08:14 | DCINST_ITS ---
- Discharge Diagnoses Current Active Problems: Current Active and Chronic Problems (Last Updated 03/22/18 @ 18:14 by Lily Valles) Chest pain (Acute) You will use the following diet at home:: Calorie/Carbohydrate Controlled (specify 1200, 1400, etc) - 1800 ADA diet, Cardiac Your food should be the consistency of: Regular Discharge Activity: Return to Normal Activity, May not drive while taking narcotic pain medications. Call your doctor if you observe: Fever of 101 or Higher, Inability to urinate, Shortness of breath, Fainting spells, Swelling in the ankles, Chest pain Allergies/Adverse Reactions: Allergies prednisone Adverse Reaction (Verified 03/20/18 18:38) Nausea Medications to take at Discharge Metformin HCl [Glucophage] 500 mg PO BIDCM 02/22/13 Gabapentin 600 mg PO BID 02/23/13 Glimepiride [Amaryl] 2 mg PO DAILY 02/23/13 Hydroxychloroquine [Plaquenil] 200 mg PO BIDCM 02/23/13 Omeprazole [Prilosec] 20 mg PO DAILY 02/23/13 Dicyclomine HCl [Bentyl] 20 mg PO TIDAC PRN #16 cap 12/25/15 Aspirin [Aspirin, Baby] 81 mg PO DAILY@0800 02/26/17 Cholecalciferol (Vitamin D3) [Vitamin D3] 2,000 unit PO DAILY 02/26/17 Losartan Potassium [Cozaar] 25 mg PO DAILY 02/26/17 fluticasone 50 mcg/actuation nasal spray,suspension 1 spray INTRANASAL BID #16 g 06/23/17 triamcinolone acetonide 0.025 % topical ointment 1 applic TOPICAL QDAY #80 g 09/10/17 ketotifen 0.025 % (0.035 %) eye drops 1 drp OPHTHALMIC BID PRN #5 ml 09/14/17 divalproex ER 250 mg tablet,extended release 24 hr 1,000 mg PO QHS #120 tab 03/17/18 Atorvastatin Calcium [Lipitor] 80 mg PO QHS #30 tablet 03/23/18 Carvedilol [Coreg (Beta Arnold)] 3.125 mg PO BID #60 tablet 03/23/18 Clopidogrel Bisulfate [Plavix] 75 mg PO DAILY #30 tablet 03/23/18 Cyclobenzaprine HCl 10 mg PO TID PRN PRN #30 tab 03/23/18 Cyclobenzaprine [Flexeril] 10 mg PO TID PRN PRN tablet 03/23/18 The following prescriptions were given: Atorvastatin Calcium [Lipitor] 80 mg PO QHS #30 tablet Clopidogrel Bisulfate [Plavix] 75 mg PO DAILY #30 tablet Carvedilol [Coreg (Beta Arnold)] 3.125 mg PO BID #60 tablet Primary Care Physician: Kannan Garcia MD [Primary Care Provider] - Please follow up with your Primary Care Physician in: in 2 weeks Test Results: Test results from this visit will be discussed in further detail at your follow- up appointment, if applicable. Please Follow Up With: Winston Johnson MD When: in 2 weeks
[2018-03-23 08:20] LABS: Bedside Glucose 92 mg/dL (70-110)
--- NOTE | 2018-03-23 08:33 | DS.PCM_ITS ---
Discharge Date and Diagnosis Date of Admission: 03/20/18 Date of Discharge: 03/23/18 - Primary Discharge Diagnosis Active and Suspected Problems (Last Updated 03/22/18 @ 18:14 by Lily Valles) Chest pain (Acute) Unstable angina with acute coronary syndrome with coronary artery athero sclerosis/stenosis status post PCI - Secondary Discharge Diagnosis Chronic Problems (Last Updated 03/22/18 @ 18:14 by Lily Valles) Atherosclerotic heart disease of [place] coronary artery without angina pectoris (Chronic) Stented coronary artery (Chronic 03/22/18) YESENIA to mid LAD (3.0 X 38 [employer]); YESENIA to mid ISR (2.5 X 38 [employer]); and YESENIA to proximal RCA (2.5 X12 [employer]) Heel spur (Chronic) Type 2 diabetes mellitus (Chronic) Obesity (Chronic) Vitamin D deficiency (Chronic) Hypertension (Chronic) Seizure disorder (Chronic) Diabetes mellitus (Chronic) type 2 Conversion disorder (Chronic) Cerebrovascular disease (Chronic) 45% L ICA stenosis Rheumatoid arthritis (Chronic) Hx of chronic inflammatory arthritis (Chronic) Chronic diastolic CHF (congestive heart failure) (Chronic) Hyperlipidemia (Chronic) Obstructive sleep apnea (Chronic) Hospital Course and Treatment Operations: None Summary of Care Provided: The patient is a 67 year old F with multiple comorbidities including hypertension, diabetes mellitus type 2, seizure disorder and stage I chronic diastolic heart failure was admitted for 2 days of progressively worsening substernal squeezing chest pain with radiation to left arm associated with diaphoresis, headache and shortness of breath consistent with unstable angina. EKG shows sinus tachycardia. The patient was admitted in PCU and had serial troponin enzymes which were negative. The patient was started on ACS protocol on aspirin, high-intensity statin, Coreg, losartan and nitrate. Cardiology was consulted. patient had negative nuclear stress MPI. Subsequently had cardiac cath and had stent in mid LAD, mid in- stent restenosis with another stent put in upstream to previous one and proximal RCA. Patient was transferred to ICU after PCI. Patient is recommended aspirin indefinitely and Plavix for at least 12 months. Manual sheath removal as per protocol. Fasting lipid profile shows triglyceride 116, total cholesterol 168, LDL 106, HDL 39. On high intensity statin. Discharge medication reconciliation done. Discharge medications and follow-up instructions including cardiac rehab discussed with the patient. Prescription sent for carvedilol, atorvastatin, Plavix and patient has losartan. Follow with Dr. koch. Follow-up PCP. Total time spent, exact 35 minutes on discharge meds reconciliation, examination, review of imaging and blood test and discussion with the patient on follow-up instructions. - Physical Exam General: Alert, Oriented x3, Cooperative HEENT: Atraumatic, PERRLA, EOMI, Normocephalic Neck: Supple, No JVD, Negative Carotid Bruits Lungs: Clear to auscultation, Normal air movement, No rhonchi, No wheeze, No rales Cardiovascular: Regular rate, Regular Rhythm, Normal S1, Normal S2, No murmurs Abdomen: Bowel Sounds Present, Soft, Non Tender, Non-Distended Extremities: No edema, Capillary Refill Less than 3 Seconds, - - Right femoral region shows no hematoma. Manual sheath removed. Skin: No rashes, No breakdown Musculoskeletal: No Tenderness to Palpation of Joints or Extremities Neurological: Cranial nerves II-XII grossly intact Psych/Mental Status: Normal Affect, Appropriate Vital Signs Temp Pulse Resp BP Pulse Ox 97.7 F L 88 20 H 126/51 H 100 03/23/18 08:00 03/23/18 08:00 03/23/18 08:00 03/23/18 08:00 03/23/18 08:00 Oxygen Flow Rate (L/min) 2 Oxygen Delivery Method Room Air Weight: 179 lb Body Mass Index (BMI) 32.7 Finger Stick Blood Glucose 173 Intake and Output for Last 24 Hours 03/21/18 03/22/18 03/23/18 23:59 23:59 23:59 Intake Total 776.7 / 776.7 1360 / 1360 360 / 360 Output Total 950 / 950 0 / 0 Balance 776.7 / 776.7 410 / 410 360 / 360 Laboratory Tests Past 24 Hrs 03/22/18 03/22/18 03/23/18 08:54 11:00 04:08 WBC 6.0 RBC 3.52 L Hgb 11.0 L Hct 33.5 L MCV 95.2 MCH 31.3 MCHC 32.8 RDW 12.9 RDW Differential 43.2 Plt Count 208 MPV 10.3 Activated Clotting Time 208 H 147 H Sodium Potassium Chloride Carbon Dioxide Anion Gap BUN Creatinine Estim Creat Clear Calc Est GFR (MDRD) Af Amer Est GFR (MDRD) Non-Af BUN/Creatinine Ratio Glucose Calcium 03/23/18 04:08 WBC RBC Hgb Hct MCV MCH MCHC RDW RDW Differential Plt Count MPV Activated Clotting Time Sodium 146 H Potassium 4.0 Chloride 109 H Carbon Dioxide 27.0 Anion Gap 10 BUN 14 Creatinine 0.84 Estim Creat Clear Calc 52.81 Est GFR (MDRD) Af Amer 87 Est GFR (MDRD) Non-Af 72 BUN/Creatinine Ratio 16.7 Glucose 86 Calcium 8.3 L POC Glucose 03/23/18 03/23/18 03/22/18 07:57 06:46 21:34 POC Glucose 92 94 119 H 03/22/18 03/22/18 16:55 13:32 POC Glucose 105 68 L Discharge Activity: Return to Normal Activity, May not drive while taking narcotic pain medications. Call your doctor if you observe: Fever of 101 or Higher, Inability to urinate, Shortness of breath, Fainting spells, Swelling in the ankles, Chest pain Home Medications: Medications to take at Discharge Metformin HCl [Glucophage] 500 mg PO BIDCM 02/22/13 Gabapentin 600 mg PO BID 02/23/13 Glimepiride [Amaryl] 2 mg PO DAILY 02/23/13 Hydroxychloroquine [Plaquenil] 200 mg PO BIDCM 02/23/13 Omeprazole [Prilosec] 20 mg PO DAILY 02/23/13 Dicyclomine HCl [Bentyl] 20 mg PO TIDAC PRN #16 cap 12/25/15 Aspirin [Aspirin, Baby] 81 mg PO DAILY@0800 02/26/17 Cholecalciferol (Vitamin D3) [Vitamin D3] 2,000 unit PO DAILY 02/26/17 Losartan Potassium [Cozaar] 25 mg PO DAILY 02/26/17 fluticasone 50 mcg/actuation nasal spray,suspension 1 spray INTRANASAL BID #16 g 06/23/17 triamcinolone acetonide 0.025 % topical ointment 1 applic TOPICAL QDAY #80 g 09/10/17 ketotifen 0.025 % (0.035 %) eye drops 1 drp OPHTHALMIC BID PRN #5 ml 09/14/17 divalproex ER 250 mg tablet,extended release 24 hr 1,000 mg PO QHS #120 tab 03/17/18 Atorvastatin Calcium [Lipitor] 80 mg PO QHS #30 tablet 03/23/18 Carvedilol [Coreg (Beta Arnold)] 3.125 mg PO BID #60 tablet 03/23/18 Clopidogrel Bisulfate [Plavix] 75 mg PO DAILY #30 tablet 03/23/18 Cyclobenzaprine HCl 10 mg PO TID PRN PRN #30 tab 03/23/18 Cyclobenzaprine [Flexeril] 10 mg PO TID PRN PRN tablet 03/23/18 Following Prescrptions Were Given to Patient: Atorvastatin Calcium [Lipitor] 80 mg PO QHS #30 tablet Clopidogrel Bisulfate [Plavix] 75 mg PO DAILY #30 tablet Carvedilol [Coreg (Beta Arnold)] 3.125 mg PO BID #60 tablet Primary Care Physician: Kannan Garcia MD [Primary Care Provider] - Please follow up with your Primary Care Physician in: in 2 weeks Please Follow Up With: Winston Koch MD When: in 2 weeks Medical Necessity - Tobacco Use Smoking Status: Never smoker Meaningful Use Info Meaningful Use Diagnoses (Choose all that apply): None applicable Code Visit Inpatient E&M: 11550 Disch Hosp
--- NOTE | 2018-03-23 10:00 | EKG12_ITS ---
Test Reason : AM EKG Blood Pressure : / mmHG Vent. Rate : 076 BPM Atrial Rate : 076 BPM P-R Int : 170 ms QRS Dur : 082 ms QT Int : 384 ms P-R-T Axes : 054 008 020 degrees QTc Int : 432 ms Normal sinus rhythm Normal ECG When compared with ECG of 22-MAR-2018 09:26, MANUAL COMPARISON REQUIRED, DATA IS UNCONFIRMED Confirmed by RADHIKA ZUNIGA, KELLY ([id number]), international editorial producer NITISH CLARKE ([id number]) on 03/26/2018 2:03:45 PM Referred By: JACKIE Confirmed By:KELLY GARRIDO MD
--- NOTE | 2018-03-24 17:36 | CASEMGMT ---
Discharge follow-up phone call LACE: Esperanza STRATA: 3 Discharge Date: 03/23/18 Adm Dx: CP Attempted discharge follow-up phone call. No answer. Message left for pt to return call to RN CM if she would have any questions or concerns about the discharge instructions or medications. Phone number to this RN CM provided. Lee HAYESN RN CM
== END 2018-03-23 10:40 | disposition home or self-care (01) | DRG 247 ==
LOC: ED 21:22 → PCU 21:34 → ICU 03-22 08:32 → PCU 03-22 08:38 → ICU 03-22 08:39
PROVIDERS: Hospitalist; Internal Medicine Cardiovascular Disease; Physician Assistant; Admitting Provider Hospitalist; Emergency Provider Emergency Medicine; Family Provider Internal Medicine; PCP Internal Medicine; Visit Provider Internal Medicine
DX: I24.9 Acute ischemic heart disease, unspecified (principal); I50.32 Chronic diastolic (congestive) heart failure; I25.110 Atherosclerotic heart disease of native coronary artery with unstable angina pectoris; E11.9 Type 2 diabetes mellitus without complications; G40.909 Epilepsy, unspecified, not intractable, without status epilepticus; M06.9 Rheumatoid arthritis, unspecified; Z23 Encounter for immunization; E78.5 Hyperlipidemia, unspecified; E66.9 Obesity, unspecified; E55.9 Vitamin D deficiency, unspecified; G47.33 Obstructive sleep apnea (adult) (pediatric); I11.0 Hypertensive heart disease with heart failure; Z79.899 Other long term (current) drug therapy; Z79.82 Long term (current) use of aspirin; Z79.84 Long term (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 of oral hypoglycemic drugs; I65.22 Occlusion and stenosis of left carotid artery; Z68.32 Body mass index [BMI] 32.0-32.9, adult
CPT/HCPCS: 36415; 71045; 80048; 80061; 81002; 82962; 84484; 85025; 85027; 85347; 85379; 85610; 85730; 92928; 93005; 93458; 97162; 97166; 97802; 97803; 99152; 99153; 99284; J7030; 90686; A4216; C1725; C1769; C1874; C1887; C9600; Q9967

== ENCOUNTER → 2018-03-30 09:09 | Outpatient (CLI) | payer MEDICARE, BC, SELFPAY ==
[2018-03-20 22:25] VITALS: BMI 32.7
[2018-03-22 11:02] VITALS: BMI 32.7
[2018-03-29 08:14] VITALS: BMI 32.7
--- NOTE | 2018-03-30 10:03 | PCM.CR.HP2 ---
CR - History & Physical - General Arrival date:: 03/30/18 Arrival time:: 09:30 Date of Referral:: 03/22/18 Date of CR Evaluation:: 03/30/18 Referring Physician: Dr. Winston Johnson Primary Diagnosis: PCI w/coronary stent placement - History of Present Cardiac Event Onset Date: Enter Onset Date of cardiac illnesses in Comment field below Acute Myocardial Infarction within 12 months:: Yes - NSTEMI got admitted. PTCA or coronary stenting:: Yes Type of Symptoms:: arm pain, mid sternal chest pain, went home experienced head ache and chest pain, burst of energy started home chores laundry and went to lay down became worsened. ADDITIONAL BLOCKAGE OF ANOTHER CORONARY VESSEL BEING MONITORED. Interventions with present event:: ADMIT TO [facility] AND TAKEN TO [employer] TECHNICIAN FOR CATH AND STENT. Were there any complications?: MINOR CHEST DISCOMFORT BUT NO ADVERSE REACTION - Medications Home Medications: Ambulatory Orders Medication Instructions Recorded Metformin HCl [Glucophage] 500 mg PO BIDCM 02/22/13 Gabapentin 600 mg PO BID 02/23/13 Glimepiride [Amaryl] 2 mg PO DAILY 02/23/13 Hydroxychloroquine [Plaquenil] 200 mg PO BIDCM 02/23/13 Omeprazole [Prilosec] 20 mg PO DAILY 02/23/13 Dicyclomine HCl [Bentyl] 20 mg PO TIDAC PRN #16 cap 12/25/15 Aspirin [Aspirin, Baby] 81 mg PO DAILY@0800 02/26/17 Cholecalciferol (Vitamin D3) 2,000 unit PO DAILY 02/26/17 [Vitamin D3] Losartan Potassium [Cozaar] 25 mg PO DAILY 02/26/17 fluticasone 50 mcg/actuation nasal 1 spray INTRANASAL BID #16 g 06/23/17 spray,suspension triamcinolone acetonide 0.025 % 1 applic TOPICAL QDAY #80 g 09/10/17 topical ointment ketotifen 0.025 % (0.035 %) eye 1 drp OPHTHALMIC BID PRN #5 ml 09/14/17 drops divalproex ER 250 mg 1,000 mg PO QHS #120 tab 03/17/18 tablet,extended release 24 hr Atorvastatin Calcium [Lipitor] 80 mg PO QHS #30 tab 03/23/18 Carvedilol [Coreg (Beta Arnold)] 3.125 mg PO BID #60 tab 03/23/18 Clopidogrel Bisulfate [Plavix] 75 mg PO DAILY #30 tab 03/23/18 Cyclobenzaprine HCl 10 mg PO TID PRN PRN #30 tab 03/23/18 Cyclobenzaprine [Flexeril] 10 mg PO TID PRN PRN tablet 03/23/18 - Allergies Allergies/Adverse Reactions: Allergies prednisone Adverse Reaction (Verified 03/20/18 18:38) Nausea - Sleep Disorder Evaluation Hx of Sleep Apnea: Yes Do you snore loudly (louder than talking or can be heard through closed doors)?: Yes - CPAP GETTING BACK TO ROUTINE USE. Advanced Directives - Advanced Directives Power of Universal Grinder Set Up Operator: Yes - ATTEMPT TO REVIVE, BUT NO [facility] LIFE SUPPORT OR CARE Living Will: Yes Advance Directives Information Provided: No Advance Directives on File: Yes DNR Order?:: Yes - MOLST See MOLST form: No Past Medical History - Past Medical Illness Medical History: Past Medical History (Last Updated 03/30/18 @ 10:12 by Pelon Mallory, OCEAN CLAM BOAT CAPTAIN, ASSEMBLY REPAIRER, BS) Atherosclerotic heart disease of [place] coronary artery without angina pectoris (Chronic) I25.10 RIGHT FOOT HEEL SPUR Arthritis M19.90 Diabetes type 2, controlled E11.9 H/O: hysterectomy Z98.890, Z90.710 Heart disease I51.9 High cholesterol E78.00 Hives L50.9 Rheumatoid arthritis M06.9 Seasonal allergies J30.2 Seizures R56.9 HTN (hypertension) I10 - Past Surgical History Surgical History: Past Surgical History (Last Updated 03/22/18 @ 18:17 by Lily Valles) Stented coronary artery (Chronic) Onset Date: 03/22/18 Z95.5 YESENIA to mid LAD (3.0 X 38 Promus Synergy); YESENIA to mid ISR (2.5 X 38 Promus Synergy); and YESENIA to proximal RCA (2.5 X12 Promus Synergy) History of carpal tunnel surgery Z92.89 History of section Z98.891 Surgical History: hysterectomy - Family History Summary Family History: Family History (Last Reviewed 03/21/18 @ 01:23 by Parker Meléndez MD) Grandmother Alcoholism Cancer Arthritis Mother Alcoholism Diabetes blood clots Hypertension Grandfather Heart disease Sister Thyroid disorder Other Breast cancer Cervical cancer Colon cancer Social History - Smoking History Smoking Status: Never smoker Hx Tobacco Use: No Hx Smoking Exposure: No - Alcohol Use Alcohol Usage: No - Substance Abuse Hx Substance Use: No - Occupation 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 Recreational Activities: I am able to engage in most, but not all activities - HAVE NOTICED SLOWED DOWN, TAKING IT DAILY, STILL GET SOME SHORTNESS OF BREATH, SOME SLIGHT CHEST PAIN BUT NOTHING THAT COMPARED TO BEFORE. Social Environment - Status Marital Status: Single - Current Living Arrangements Living Environment:: Family - Children How many children do you have?: 2 - 2-SONS IN AREA Do any of your children live nearby?: Yes - Safety Do you feel safe in your surroundings?: Yes Review of Systems - Review of Systems Hints: Right click = Denies (Slash). Left click = Reports ([place]) Review of Present Symptoms: Reports: Shortness of Breath with Exertion, Angina - SOME MILD DISCOMFORT NOTED BUT NOTHING THAT COMPARED TO PREVIOUS EVENT., Fatigue, Appetite - Normal. Denies: Shortness of Breath at Rest, Dizziness/Lightheadedness, Heart Arrhythmia/Irregularities, Appetite - Special Diet, Sleep - Normal - CAN BE UP FOR ONE OR TWO NIGHTS DEPENDING ON THE LINA. - Pain Is Patient Pain Free?: Yes Pain Location: none Pain Level: 0/10 Risk Factor Assessment - Vital Signs Temperature: 98.7 F Respiratory Rate: 16 Pulse Ox: 97 Nailbeds:: PAINTED - Pulse Pulse Rate: 87 Pulse Rhythm: Regular - Hypertension Blood Pressure Sitting - Left Arm: 124/70 - Stress Stress: Work-related - FREQUENCY OF HOURS WORKING. - Diabetes Diabetic History: Type II Nutrition Referral for Diabetes: Yes - Obesity Height: 5 ft 2 in Weight:: 179 lb Weight in Pounds: 179.0 lbs Weight Source: Standing Scale Body Mass Index (BMI): 32.7 Nutritional Referral for Obesity: Yes - DM TYPE II, OBESITY, CAD, - Physical Inactivity Physical Inactivity: None - Risk Stratification Risk Guidelines: Lowest Risk: Risk Factor for Smoking, Risk Factor for Dyslipidemia, Risk Factor for Diabetes, Risk Factor for Hypertension, Risk Factor for Sedentary Lifestyle, Risk Factor for Depression, Highest Risk: Risk Factor for Obesity - For Smoking Smoking Risk Guidelines: Smoking Low Risk: None or quit greater than 6 months ago. Smoking Moderate Risk: Smoker or quit 6 months or less ago. Smoking High Risk: Smoker - For Dyslipidemia Dyslipidemia Risk Guidelines: Low Risk: Moderate Risk: High Risk: 15-25% fat 25.1-29% fat >/= 30% fat. <7% sat fat 7-9% sat fat >9% sat fat. <150 mg chol 150-299 mg chol >/= 300 mg chol. LDL <100 LDL 100-129 LDL >/= 130. Chol/HDL ratio <5.0 Chol/HDL ratio 5.0-6.0 Chol/HDL ratio >6.0. Triglycerides <100 Triglycerides 100-149 Triglycerides >/= 150 - For Diabetes Mellitus Diabetes Risk Guidelines: Diabetes Low Risk: HgA1c <6.5% and/or FBG <120. Diabetes Moderate Risk: HgA1c 6.6-7.9% and/or FBG 120-180. Diabetes High Risk: HgA1c >/= 8% and/or FBG >180 - For Obesity/Overweight Obesity/Overweight Risk Guidelines: Obesity Low Risk: BMI <25.0. Obesity Moderate Risk: BMI 25-29.9. Obesity High Risk: BMI >/= 30.0 - For Hypertension Hypertension Risk Guidelines: Hypertension Low Risk: Systolic <120 and Diastolic <80. Hypertension Moderate Risk: Systolic 120-139 and Diastolic 80-89. Hypertension High Risk: Systolic >/= 140 and Diastolic >/= 90 - For Sedentary Lifestyle Sedentary Lifestyle Risk Guidelines: Sedentary Lifestyle Low Risk: >/= 1,500 kcal/week. Sedentary Lifestyle Moderate Risk: 700-1,499 kcal/week. Sedentary Lifestyle High Risk: < 700 kcal/week - For Depression Depression Risk Guidelines: Depression Low Risk: Not clinically depressed. Depression Moderate Risk: Mildly depressed. Depression High Risk: Clinically depressed - Family History Family History: Family History (Last Reviewed 03/21/18 @ 01:23 by Parker Meléndez MD) Grandmother Alcoholism Cancer Arthritis Mother Alcoholism Diabetes blood clots Hypertension Grandfather Heart disease Sister Thyroid disorder Other Breast cancer Cervical cancer Colon cancer Motivation - Motivation to Participate On a scale of 1 to 10, how prepared are you to commit to attending program?: 10 What do you see as barriers to successfully being able to complete the program?: NONE What do you see as the benefits of succesfully completing the program? In other words, what do you hope to get out of participating in the program?: TEACHING HEALTHIER LIFESTYLE, GETTING STRONGER, DIET, LIFESTYLE CHANGES Are there issues you are dealing with that will interfere with completing the program?: NONE Do you have a spouse or signficant other, family or friends who will help support you to complete the program?: YES.
--- NOTE | 2018-03-30 10:07 | CR.HP_ITS ---
CR - History & Physical - General Arrival date:: 03/30/18 Arrival time:: 09:30 Date of Referral:: 03/22/18 Date of CR Evaluation:: 03/30/18 Referring Physician: Dr. Winston Johnson Primary Diagnosis: PCI w/coronary stent placement - History of Present Cardiac Event Onset Date: Enter Onset Date of cardiac illnesses in Comment field below Acute Myocardial Infarction within 12 months:: Yes - NSTEMI got admitted. PTCA or coronary stenting:: Yes Type of Symptoms:: arm pain, mid sternal chest pain, went home experienced head ache and chest pain, burst of energy started home chores laundry and went to lay down became worsened. ADDITIONAL BLOCKAGE OF ANOTHER CORONARY VESSEL BEING MON ITORED. Interventions with present event:: ADMIT TO [facility] AND TAKEN TO PROFESSOR OF SOCIOLOGY FOR CATH AND STENT. Were there any complications?: MINOR CHEST DISCOMFORT BUT NO ADVERSE REACTION - Medications Home Medications: Ambulatory Orders Medication Instructions Recorded Metformin HCl [Glucophage] 500 mg PO BIDCM 02/22/13 Gabapentin 600 mg PO BID 02/23/13 Glimepiride [Amaryl] 2 mg PO DAILY 02/23/13 Hydroxychloroquine [Plaquenil] 200 mg PO BIDCM 02/23/13 Omeprazole [Prilosec] 20 mg PO DAILY 02/23/13 Dicyclomine HCl [Bentyl] 20 mg PO TIDAC PRN #16 cap 12/25/15 Aspirin [Aspirin, Baby] 81 mg PO DAILY@0800 02/26/17 Cholecalciferol (Vitamin D3) 2,000 unit PO DAILY 02/26/17 [Vitamin D3] Losartan Potassium [Cozaar] 25 mg PO DAILY 02/26/17 fluticasone 50 mcg/actuation nasal 1 spray INTRANASAL BID #16 g 06/23/17 spray,suspension triamcinolone acetonide 0.025 % 1 applic TOPICAL QDAY #80 g 09/10/17 topical ointment ketotifen 0.025 % (0.035 %) eye 1 drp OPHTHALMIC BID PRN #5 ml 09/14/17 drops divalproex ER 250 mg 1,000 mg PO QHS #120 tab 03/17/18 tablet,extended release 24 hr Atorvastatin Calcium [Lipitor] 80 mg PO QHS #30 tab 03/23/18 Carvedilol [Coreg (Beta Arnold)] 3.125 mg PO BID #60 tab 03/23/18 Clopidogrel Bisulfate [Plavix] 75 mg PO DAILY #30 tab 03/23/18 Cyclobenzaprine HCl 10 mg PO TID PRN PRN #30 tab 03/23/18 Cyclobenzaprine [Flexeril] 10 mg PO TID PRN PRN tablet 03/23/18 - Allergies Allergies/Adverse Reactions: Allergies prednisone Adverse Reaction (Verified 03/20/18 18:38) Nausea - Sleep Disorder Evaluation Hx of Sleep Apnea: Yes Do you snore loudly (louder than talking or can be heard through closed doors)?: Yes - CPAP GETTING BACK TO ROUTINE USE. Advanced Directives - Advanced Directives Power of Sales Representative Adding Machines: Yes - ATTEMPT TO REVIVE, BUT NO CARE HOME LIFE SUPPORT OR CARE Living Will: Yes Advance Directives Information Provided: No Advance Directives on File: Yes DNR Order?:: Yes - MOLST See MOLST form: No Past Medical History - Past Medical Illness Medical History: Past Medical History (Last Updated 03/30/18 @ 10:12 by Pelon Mallory, SEAM STEAMER, ROPER OPERATOR, BS) Atherosclerotic heart disease of [place] coronary artery without angina pectoris (Chronic) I25.10 RIGHT FOOT HEEL SPUR Arthritis M19.90 Diabetes type 2, controlled E11.9 H/O: hysterectomy Z98.890, Z90.710 Heart disease I51.9 High cholesterol E78.00 Hives L50.9 Rheumatoid arthritis M06.9 Seasonal allergies J30.2 Seizures R56.9 HTN (hypertension) I10 - Past Surgical History Surgical History: Past Surgical History (Last Updated 03/22/18 @ 18:17 by Lily Valles) Stented coronary artery (Chronic) Onset Date: 03/22/18 Z95.5 YESENIA to mid LAD (3.0 X 38 Promus Synergy); YESENIA to mid ISR (2.5 X 38 Promus Synergy); and YESENIA to proximal RCA (2.5 X12 Promus Synergy) History of carpal tunnel surgery Z92.89 History of section Z98.891 Surgical History: hysterectomy - Family History Summary Family History: Family History (Last Reviewed 03/21/18 @ 01:23 by Parker Meléndez MD) Grandmother Alcoholism Cancer Arthritis Mother Alcoholism Diabetes blood clots Hypertension Grandfather Heart disease Sister Thyroid disorder Other Breast cancer Cervical cancer Colon cancer Social History - Smoking History Smoking Status: Never smoker Hx Tobacco Use: No Hx Smoking Exposure: No - Alcohol Use Alcohol Usage: No - Substance Abuse Hx Substance Use: No - Occupation 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 Recreational Activities: I am able to engage in most, but not all activities - HAVE NOTICED SLOWED DOWN, TAKING IT DAILY, STILL GET SOME SHORTNESS OF BREATH, SOME SLIGHT CHEST PAIN BUT NOTHING THAT COMPARED TO BEFORE. Social Environment - Status Marital Status: Single - Current Living Arrangements Living Environment:: Family - Children How many children do you have?: 2 - 2-SONS IN AREA Do any of your children live nearby?: Yes - Safety Do you feel safe in your surroundings?: Yes Review of Systems - Review of Systems Hints: Right click = Denies (Slash). Left click = Reports ([place]) Review of Present Symptoms: Reports: Shortness of Breath with Exertion, Angina - SOME MILD DISCOMFORT NOTED BUT NOTHING THAT COMPARED TO PREVIOUS EVENT., Fatigue, Appetite - Normal. Denies: Shortness of Breath at Rest, Dizziness/Lightheadedness, Heart Arrhythmia/Irregularities, Appetite - Special Diet, Sleep - Normal - CAN BE UP FOR ONE OR TWO NIGHTS DEPENDING ON THE LINA. - Pain Is Patient Pain Free?: Yes Pain Location: none Pain Level: 0/10 Risk Factor Assessment - Vital Signs Temperature: 98.7 F Respiratory Rate: 16 Pulse Ox: 97 Nailbeds:: PAINTED - Pulse Pulse Rate: 87 Pulse Rhythm: Regular - Hypertension Blood Pressure Sitting - Left Arm: 124/70 - Stress Stress: Work-related - FREQUENCY OF HOURS WORKING. - Diabetes Diabetic History: Type II Nutrition Referral for Diabetes: Yes - Obesity Height: 5 ft 2 in Weight:: 179 lb Weight in Pounds: 179.0 lbs Weight Source: Standing Scale Body Mass Index (BMI): 32.7 Nutritional Referral for Obesity: Yes - DM TYPE II, OBESITY, CAD, - Physical Inactivity Physical Inactivity: None - Risk Stratification Risk Guidelines: Lowest Risk: Risk Factor for Smoking, Risk Factor for Dyslipidemia, Risk Factor for Diabetes, Risk Factor for Hypertension, Risk Factor for Sedentary Lifestyle, Risk Factor for Depression, Highest Risk: Risk Factor for Obesity - For Smoking Smoking Risk Guidelines: Smoking Low Risk: None or quit greater than 6 months ago. Smoking Moderate Risk: Smoker or quit 6 months or less ago. Smoking High Risk: Smoker - For Dyslipidemia Dyslipidemia Risk Guidelines: Low Risk: Moderate Risk: High Risk: 15-25% fat 25.1-29% fat >/= 30% fat. <7% sat fat 7-9% sat fat >9% sat fat. <150 mg chol 150-299 mg chol >/= 300 mg chol. LDL <100 LDL 100-129 LDL >/= 130. Chol/HDL ratio <5.0 Chol/HDL ratio 5.0-6.0 Chol/HDL ratio >6.0. Triglycerides <100 Triglycerides 100- 149 Triglycerides >/= 150 - For Diabetes Mellitus Diabetes Risk Guidelines: Diabetes Low Risk: HgA1c <6.5% and/or FBG <120. Diabetes Moderate Risk: HgA1c 6.6-7.9% and/or FBG 120-180. Diabetes High Risk: HgA1c >/= 8% and/or FBG >180 - For Obesity/Overweight Obesity/Overweight Risk Guidelines: Obesity Low Risk: BMI <25.0. Obesity Moderate Risk: BMI 25-29.9. Obesity High Risk: BMI >/= 30.0 - For Hypertension Hypertension Risk Guidelines: Hypertension Low Risk: Systolic <120 and Diastolic <80. Hypertension Moderate Risk: Systolic 120-139 and Diastolic 80-89. Hypertension High Risk: Systolic >/= 140 and Diastol ic >/= 90 - For Sedentary Lifestyle Sedentary Lifestyle Risk Guidelines: Sedentary Lifestyle Low Risk: >/= 1,500 kcal/week. Sedentary Lifestyle Moderate Risk: 700-1,499 kcal/week. Sedentary Lifestyle High Risk: < 700 kcal/week - For Depression Depression Risk Guidelines: Depression Low Risk: Not clinically depressed. Depression Moderate Risk: Mildly depressed. Depression High Risk: Clinically depressed - Family History Family History: Family History (Last Reviewed 03/21/18 @ 01:23 by Parker Meléndez MD) Grandmother Alcoholism Cancer Arthritis Mother Alcoholism Diabetes blood clots Hypertension Grandfather Heart disease Sister Thyroid disorder Other Breast cancer Cervical cancer Colon cancer Motivation - Motivation to Participate On a scale of 1 to 10, how prepared are you to commit to attending program?: 10 What do you see as barriers to successfully being able to complete the program?: NONE What do you see as the benefits of succesfully completing the program? In other words, what do you hope to get out of participating in the program?: TEACHING HEALTHIER LIFESTYLE, GETTING STRONGER, DIET, LIFESTYLE CHANGES Are there issues you are dealing with that will interfere with completing the program?: NONE Do you have a spouse or signficant other, family or friends who will help support you to complete the program?: YES.
[2018-03-30 10:25] VITALS: BP 124/70; PULSE 87; RESP 16; TEMP 37.1; O2SAT 97; BMI 32.7
--- NOTE | 2018-03-30 11:32 | PCM.CR.ITP ---
General Information - General Information Admitting Diagnosis: PCI W/CORONARY STENT PLACEMENT, NON-STEMI - Education/Goals Barriers to Learning: None Individual Counseling: Initial Assessment: Abnormal Cholesterol Levels, Overweight/Obesity, Diabetes, Hypertension, Family History of Heart Disease (under 65 years) Cardiac Rehabilitation Goals: 1. Maintain the individual as the primary focus of care. 2. To improve the patient's quality of life. 3. Identification of cardiac risk factors and provide cardiac risk factor management. 4. Enhance the psychosocial status of the patient. 5. Reconditioning enough to allow the patient to resume customary activities. 6. Control symptoms of cardiac disease Scale for measuring improvement of personal goals: Enter appropriate number in Comments. 2 = Unchanged. 3 = Slightly Better. 4 = Moderate Improvement. 5 = Met my Goal Personal Goals: Initial Assessment: Get back to work, or to resume activities faster, Improve knowledge of cardiac disease, Improve diet and eating habits (eat healthier) Exercise - Initial Assessment - Visit Date of Eval: 03/30/18 - START 04/05/18 - Stages of Change Stages of Change:: Action - Exercise Prescription Mode:: Treadmill, Biodyne, Airdyne, NuStep, Arm Ergometer Angina with exercise?: No Target Heart Rate:: 108-116 - Hypertension Do any of the following apply?: Yes - MEDICATION AND DIET Resting Blood Pressure:: 126/51 - Intervention Home Exercise/Activity Goal:: Moderate Exercise 30 min/day x 5 days/wk - Education Goals:: Warm-up, RPE BRANDI Scale, S/S, Safe Exercise, Self-Monitoring - Exercise Program Goals Exercise Program Goals: Aerobic Activity >30 min Nutrition - Initial Assessment - Program Goals Nutrition Program Goals: LDL <70. Total Cholesterol <200. HDL >45. Triglycerides <150. HgbA1C <7%. BMI <25 - Visit Date of Assessment:: 03/30/18 - Stages of Change Stages of Change:: Action - Diabetes Diabetes:: Yes Non-Insulin Dependent?: Yes - METFORMIN Do you monitor your blood sugar at home?: Yes - INSTRUCTED TO BEING GLUCMETER WITH HER TO CR - Weight Management Height: 5 ft 2 in Weight:: 81.193 kg - Intervention Referral to dietitian:: Yes Referral to Diabetic Clinic:: Yes Will attend diet classes:: Yes - Education Gave educational materials for:: Signs & symptoms of hypoglycemia, Signs & symptoms of hyperglycemia, Relate diabetes to coronary artery disease, Healthy eating Tobacco - Initial Assessment - Program Goals Tobacco Program Goals: Complete smoking cessation. Attend education classes. Improve Knowledge Test score - Stage of Change Stages of Change:: Action - Learning Barriers Learning Barriers: Ready to Learn - Family Support Do you have family support?: Yes - Tobacco Use Tobacco Use: Non-smoker Do you use smokeless tobacco?: No - Intervention Smoking Cessation Referral:: No Individual Education/Counseling:: No Education Schedule Given:: Yes - Education Gave educational material for:: Coronary artery disease, Risk factors, Sexuality, Medical compliance, Cardiac A&P, Angina signs & symptoms Psychosocial - Initial Assess - Target Goals Target Goals: Assess presence or absence of depression. Using a valid screening tool, maximizes coping skills. Positive support system - Stages of Change Stages of Change:: Action - Psychosocial Test Tool Used:: HANDS Depression Questionnaire - Intervention PS - Interventions: No Referral to Mental Health, No Referral to [facility] Case Management, No Referral to Physician - Education Gave educational materials for:: Coping techniques, Signs & symptoms of depression, Stress management, Relaxation techniques - Patient/Program Goal Preventative Medication(s):: Aspirin, Clopidogrel, Beta teri, Statin/lipid - Assistive Devices Assistive Devices:: None Fall Risk Assessed:: Yes Patient Health Questionnaire Initial Assessment 1. Little interest or pleasure in doing things: Not at all 2. Feeling down, depressed, or hopeless: Not at all 3. Trouble falling or staying asleep, or sleeping too much: Nearly every day 4. Feeling tired or having little energy: Several days 5. Poor appetite or overeating: Not at all 6. Feeling bad about yourself -- or that you are a failure or have let yourself or your family down: Not at all 7. Trouble concentrating on things, such as reading the newspaper or watching television: Not at all 8. Moving or speaking so slowly that other people could have noticed. Or the opposite - being so fidgety or restless that you have been moving around a lot more than usual: Not at all 9. Thoughts that you would be better off , or of hurting yourself in some way: Not at all Total Score: 4 JOAQUIN-Q SV Test - Statements CAD is a disease of the arteries in the heart: False Examples of risk factors for heart disease: True Angina is chest pain or discomfort: I Don't Know The benefits of resistance training include: I Don't Know Eating more meat and dairy products: I Don't Know Anti-platelet medications such as aspirin are important: I Don't Know The only effective way to manage stress: False An exercise warm-up slowly increases heart rate: True Prepared, processed foods usually have high sodium: I Don't Know Depression is common after a heart attack: I Don't Know The statin medications lower cholesterol: True To control blood pressure, lower the amount of sodium: True If someone gets chest discomfort during walking: False Transfats are partially hydrogenated vegetable oils: True Sleep apnea that is not treated increases the risk: False To control cholesterol, one should become a vegetarian: False Someone knows if he/she is exercising at the right level: I Don't Know Diabetes cannot be prevented with exercise & health eating: True Stress is a large risk for heart attack: True A diet that can help lower blood pressure is rich in: True - Total Score Total Correct Responses: 12 Self-Efficacy Initial Assessment We would like to know how confident you are in doing certain activities. Please select your confidence level for:: Select your confidence level for the following using the scale 1-10 where 1 is not at all confident and 10 is totally confident. Your score is the average of all 6 responses. Fatigue: How confident are you that you can keep the fatigue caused by your disease from interfering with the things you want to do? Select Number: 8 Physical Discomfort or Pain: How confident are you that you can keep the physical discomfort or pain of your disease from interfering with the things you want to do? Select Number: 10 Emotional Distress: How confident are you that you can keep the emotional distress caused by your disease from interfering with the things you want to do? Select Number: 10 Other Symptoms or Health Problems: How confident are you that you can keep other symptoms or health problems from interfering with the things you want to do? Select Number: 10 Different Tasks and Activities: How confident are you that you can do the different tasks and activities needed to manage your health condition so as to reduce your need to see a doctor? Select Number: 9 Medication: How confident are you that you can do things other than just taking medication to reduce how much your illness affects your everyday life? Select Number: 10 Total Score:: 9 Nutrition Survey - Nutrition Survey Instructions Scoring Instructions: Scoring is as follows: Yes = 1 points. No = 0 point. Patient score that is >/=12 is considered to be at potential nutritional risk and could benefit from a referral to a registered dietitian. - Nutrition Survey Initial Have you lost >10 lbs over the past 2 months without trying?: No Are you following a special diet at home for diabetes, low fat, or low salt?: No Are you interested in meeting with a dietitian for help understanding your diet?: Yes Do you eat less than 3 meals a day?: No Do you eat fatty meats (rod, sausage, ribs, etc), fried foods, desserts, large amounts of salad dressings, margarine, butter, or cheese most days?: Yes Do you have food allergies? [Enter types in comment field]: No Do you eat in restaurants more than 3 times a week?: No Do you season food with salt, seasoning salt, or garlic salt?: Yes Do you used canned, boxed, frozen meals, or soups, seasoning packets?: Yes Total Score:: 4
[2018-03-30 11:46] VITALS: BP 126/51
--- OUTSIDE RECORDS SUMMARY | 2018-05-11 22:19 | XMS RPT_ITS ---
:1950 Author Organization OHIP Support Name Relationship Address Phone [facility] Unavailable [place] + [place] [address] CHATO OJEDA Un[address] + [place] [address] CELESTINE, AREN Unavailable Unavailable + [place] [facility] Unavailable [place] + [place] [address] CHATO OJEDA Unavailable [address] + [place] [address] CELESTINE, AREN Unavailable Unavailable + [place] [facility] Unavailable [place] + [place] [address] CHATO OJEDA Un[address] + [place] [address] CELESTINE, AREN Unavailable Unavailable + [place] [facility] Unavailable [place] + [place] [address] CHATO OJEDA Un[address] + [place] [address] CELESTINE, AREN Unavailable Unavailable + [place] [facility] Unavailable [place] + [place] [address] CHATO OJEDA Un[address] + [place] [address] CELESTINE, AREN Unavailable Unavailable + [place] [facility] Unavailable [place] + [place] [address] CHATO OJEDA Un[address] + [place] [address] CELESTINE AREN Unavailable . + [place] . [facility] Unavailable [place] + [place] [address] CHATO OJEDA Un[address] + [place] [address] CELESTINE, AREN Unavailable Unavailable + [place] [facility] Unavailable [place] + [place] [address] CHATO OJEDA Unavailable [address] + [place] [address] CELESTINE, AREN Unavailable Unavailable + [place] [facility] Unavailable [place] + [place] [address] CHATO OJEDA Unavailable [address] + [place] [address] CELESTINE, AREN Unavailable . + [place] . [facility] Unavailable [place] + [place] [address] CHATO OJEDA Unavailable [address] + [place] [address] CELESTINE, AREN Unavailable Unavailable + [place] [facility] Unavailable [place] + [place] [address] CHATO OJEDA Unavailable [address] + [place] [address] CELESTINE, AREN Unavailable Unavailable + [place] [facility] Unavailable [place] + [place] [address] CHATO OJEDA Unavailable [address] + [place] [address] CELESTINE, AREN Unavailable Unavailable + [place] [facility] Unavailable [place] + [place] [address] CHATO OJEDA Unavailable [address] + [place] [address] CELESTINE, AREN Unavailable Unavailable + [place] [facility] Unavailable [place] + [place] [address] CHATO OJEDA Unavailable [address] + [place] [address] CELESTINE, AREN Unavailable Unavailable + [place] [facility] Unavailable [place] + [place] [address] OJEDA CHATO Unavailable [facility] [address] + [place] [address] CELESTINE AREN Unavailable Unavailable + [place] [facility] Unavailable [place] + [place] [address] OJEDACHATO Unavailable [facility] [address] + [place] [address] CELESTINE, AREN Unavailable Unavailable + [place] [facility] Unavailable [place] + [place] [address] RUSTY CHATO Unavailable [address] + [place] [address] CELESTINE, AREN Unavailable . + ., [place] . [facility] Unavailable [place] + [place] [address] OJEDA CHATO Unavailable [address] + [place] [address] CELESTINE, AREN Unavailable . + ., [place] . [facility] Unavailable [place] + [place] [address] OJEDACHATO Unavailable [address] + [place] [address] CELESTINE, AREN Unavailable . + ., [place] . [facility] Unavailable [place] + [place] [address] OJEDA CHATO Unavailable [address] + [place] [address] CELESTINE, AREN Unavailable Unavailable + [facility] Unavailable [place] + [place] [address] RUSTY CHATO Unavailable [address] + [place] [address] CELESTINE, AREN Unavailable Unavailable + [facility] Unavailable [place] + [place] [address] CHATO OJEDA Unavailable [address] + [place] [address] CELESTINE, AREN Unavailable . + ., [place] . [facility] Unavailable . + [place] [address] CHATO OJEDA Unavailable [address] + [place] [address] CELESTINE, AREN Unavailable . + ., [place] . [facility] Unavailable . + [place] [address] CHATO OJEDA Unavailable [address] + [place] [address] CELESTINE, AREN Unavailable . + ., [place] . [facility] Unavailable . + [place] [address] CHATO OJEDA Unavailable [address] + [place] [address] CELESTINE, AREN Unavailable . + ., [place] . [facility] Unavailable . + [place] [address] CHATO OJEDA Unavailable [address] + [place] [address] CELESTINE, AREN Unavailable [address] + [place], CHATO MCCLENDON Unavailable [address] + [place] [address] UE Unavailable Unavailable Unavailable CELESTINE, AREN Unavailable [address] + [place], [place] / CHATO OJEDA Unavailable [address] + [place] [address] UE Unavailable Unavailable Unavailable CELESTINE, AREN Unavailable [address] + [place], [place] / CHATO OJEDA Unavailable [address] + [place] [address] UE Unavailable Unavailable Unavailable CELESTINE, AREN Unavailable [address] + [place] / CHATO OJEDA Unavailable [address] + [place] [address] UE Unavailable Unavailable Unavailable CELESTINE AREN Unavailable [address] + [place] / CHATO OJEDA Unavailable [address] + [place] [address] UE Unavailable Unavailable Unavailable CELESTINE AREN Unavailable [address] + [place] / [facility] Unavailable [address] + [place] [address] CHATO OJEDA Unavailable [address] + [place] [address] CELESTINE AREN Unavailable [address] + [place] / [facility] Unavailable [address] + [place] [address] CHATO OJEDA Unavailable [address] + [place] [address] CELESITNE AREN Unavailable [address] + [place] / [facility]available [address] + [place] [address] CHATO OJEDA Unavailable [address] + [place] [address] CELESTINE, AREN Unavailable [address] + [place] / Care Team Providers Name Role Phone Alex Winston Attending Unavailable Alex, Sugar Tree Referring Unavailable Oleghe, Efewongbe Primary Care Unavailable Alex, Sugar Tree Attending Unavailable Oleghe, Efewongbe Attending Unavailable Oleghe, Efewongbe Referring Unavailable Oleghe, Efewongbe Primary Care Unavailable Parker Meléndez Admitting Unavailable Oleghe, Efewongbe Primary Care Unavailable Daya Mobley Consulting Unavailable Dennys Lovett Attending Unavailable Dennys Lovett Consulting Unavailable Alex, Sugar Tree Attending Unavailable Alex, Winston Referring Unavailable Oleghe, Efewongbe Primary Care Unavailable Oleghe, Efewongbe Attending Unavailable Oleghe, Efewongbe Referring Unavailable Oleghe, Efewongbe Primary Care Unavailable Alex, Winston Attending Unavailable Oleghe, Efewongbe Referring Unavailable Oleghe, Efewongbe Primary Care Unavailable Oleghe, Efewongbe Attending Unavailable Oleghe, Efewongbe Referring Unavailable Oleghe, Efewongbe Primary Care Unavailable Oleghe, Efewongbe Attending Unavailable Oleghe, Efewongbe Referring Unavailable Oleghe, Efewongbe Primary Care Unavailable Vellanki Yee Attending Unavailable Vellanki, Yee Referring Unavailable Oleghe, Efewongbe Primary Care Unavailable Zee Montiel ACID RETORT OPERATOR-C Consulting Unavailable Saul Nicole ACID RETORT OPERATOR-C Attending Unavailable Oleghe, Efewongbe Primary Care Unavailable Saul Nicole ACID RETORT OPERATOR-C Attending Unavailable Oleghe, Efewongbe Referring Unavailable Oleghe, Efewongbe Primary Care Unavailable Zee Montiel ACID RETORT OPERATOR-C Attending Unavailable Oleghe, Efewongbe Referring Unavailable Oleghe, Efewongbe Primary Care Unavailable Saul Nicole ACID RETORT OPERATOR-C Attending Unavailable Oleghe, Efewongbe Referring Unavailable Oleghe, Efewongbe Primary Care Unavailable Oleghe, Efewongbe Primary Care Unavailable Luis Miguel Pham Attending Unavailable Saul Nicole ACID RETORT OPERATOR-C Attending Unavailable Oleghe, Efewongbe Referring Unavailable Oleghe, Efewongbe Attending Unavailable Oleghe, Efewongbe Referring Unavailable Oleghe, Efewongbe Primary Care Unavailable Alex, Sugar Tree Attending Unavailable Parker Meléndez Referring Unavailable Alex, Sugar Tree Attending Unavailable Oleghe, Efewongbe Referring Unavailable Leanne Buenrostro Attending Unavailable Alex, Winston Attending Unavailable Ashelfah, Ghasem Referring Unavailable Alex, Sugar Tree Attending Unavailable Alex, Sugar Tree Referring Unavailable Oleghe, Efewongbe Primary Care Unavailable Oleghe, Efewongbe Attending Unavailable Oleghe, Efewongbe Referring Unavailable Parker Meléndez Admitting Unavailable Dennys Lovett Attending Unavailable Oleghe, Efewongbe Primary Care Unavailable Daya Mobley Consulting Unavailable Dennys Lovett Consulting Unavailable Agyepong, Parker Admitting Unavailable Winston Koch Attending Unavailable Oleghe, Efewongbe Primary Care Unavailable Itz, Daya Consulting Unavailable Kallie Lovettsh Consulting Unavailable Agyepong, Parker Admitting Unavailable Oleghe, Efewongbe Primary Care Unavailable Itz, Daya Consulting Unavailable Ashelfah, Ghasem Attending Unavailable Ashelfah, Ghasem Consulting Unavailable Agyepong, Parker Admitting Unavailable Itz, Daya Attending Unavailable Oleghe, Efewongbe Primary Care Unavailable Itz, Daya Consulting Unavailable Ashelfah, Ghasem Consulting Unavailable Agyepong, Parker Admitting Unavailable Agyepong, Parker Attending Unavailable Oleghe, Efewongbe Primary Care Unavailable Agyepong, Parker Consulting Unavailable Oleghe, Efewongbe Primary Care Unavailable Agyepong, Parker Admitting Unavailable Itz, Daya Consulting Unavailable Bony, Dennys Attending Unavailable Oleghe, Efewongbe Attending Unavailable Oleghe, Efewongbe Referring Unavailable Oleghe, Efewongbe Primary Care Unavailable Oleghe, Efewongbe Attending Unavailable Oleghe, Efewongbe Referring Unavailable Oleghe, Efewongbe Attending Unavailable Oleghe, Efewongbe Referring Unavailable VellankiPrasadma Attending Unavailable Vellanki, Yee Referring Unavailable Oleghe, Efewongbe Primary Care Unavailable Oleghe, Efewongbe Attending Unavailable Talampas, Kasie Referring Unavailable Talampas, Kasie Primary Care Unavailable KIM, GLEN (ULTIMATE HOOPS TRAINER) Referring Unavailable KIM, GLEN (ULTIMATE HOOPS TRAINER) Referring Unavailable JOSSUE FINLEY Referring Unavailable JOSSUE FINLEY Attending Unavailable JOSSUE FINLEY Referring Unavailable TESTRAKE, MYNOR Attending Unavailable TESTRAKE, MYNOR Referring Unavailable TESTRAKE, MYNOR Referring Unavailable JENELLE, KARUNA (PT) Attending Unavailable TESTRAKE, MYNOR Referring Unavailable JENELLE, KARUNA (PT) Attending Unavailable TESTRAKE, MYNOR Referring Unavailable TESTRAKE, MYNOR Attending Unavailable TESTRAKE, MYNOR Referring Unavailable JENELLE, KARUNA (PT) Attending Unavailable TESTRAKE, MYNOR Referring Unavailable JENELLE, KARUNA (PT) Attending Unavailable TESTRAKE, MYNOR Referring Unavailable JENELLE, KARUNA (PT) Attending Unavailable TESTRAKE, MYNOR Referring Unavailable JENELLE, KARUNA (PT) Attending Unavailable TESTRAKE, MYNOR Referring Unavailable JENELLE, KARUNA (PT) Attending Unavailable TESTRAKE, MYNOR Referring Unavailable JENELLE, KARUNA (PT) Attending Unavailable TESTRAKE, MYNOR Referring Unavailable JENELLE, KARUNA (PT) Attending Unavailable TESTRAKE, MYNOR Referring Unavailable JENELLE, KARUNA (PT) Attending Unavailable TESTRAKE, MYNOR Referring Unavailable JENELLE, KARUNA (PT) Attending Unavailable TESTRAKE, MYNOR Referring Unavailable TESTRAKE, MYNOR Attending Unavailable TESTRAKE, MYNOR Referring Unavailable JOSSUE FINLEY Referring Unavailable JENELLE, KARUNA (PT) Attending Unavailable TESTRAKE, MYNOR Referring Unavailable NIKITA YAO Attending Unavailable IMCA Referring Unavailable PROBLEMS PROBLEMS DATE TYPE CONDITION / CODE ATTENDING STATUS SOURCE Unknown Z95.5 - Presence of Alex, Sugar Tree Active [facility] coronary angioplasty Community implant and graft / Hospital Z95.5(ICD-10) Repository Unknown I10 - Essential (primary) Alex, Sugar Tree Active [facility] hypertension / Community I10(ICD-10) Hospital Repository Unknown E78.00 - Pure Alex, Sugar Tree Active [facility] [facility] hypercholesterolemia, Community unspecified / Hospital E78.00(ICD-10) Repository Unknown E78.5 - Hyperlipidemia, Alex, Sugar Tree Active [facility] unspecified / Community E78.5(ICD-10) Hospital Repository Unknown I50.32 - Chronic Alex, Sugar Tree Active [place] [facility] diastolic (congestive) Community heart failure / Hospital I50.32(ICD-10) Repository Unknown I25.10 - Atherosclerotic Alex, Sugar Tree Active [facility] heart disease of [place] Community coronary artery without Hospital angina pectoris / Repository I25.10(ICD-10) Unknown E11.9 - Type 2 diabetes Oleghe, Active [facility] mellitus without [place] Community complications / Hospital E11.9(ICD-10) Repository Unknown E66.9 - Obesity, Oleghe, Active [facility] unspecified / [place] Community E66.9(ICD-10) Hospital Repository Unknown R07.9 - Chest pain, Alex, Winston Active [facility] unspecified / Community R07.9(ICD-10) Hospital Repository Unknown R94.31 - Abnormal Winston Koch Active [facility] electrocardiogram [ECG] Community [EKG] / R94.31(ICD-10) Hospital Repository Unknown I24.9 - Acute ischemic Winston Koch Active [facility] heart disease, Community unspecified / Hospital I24.9(ICD-10) Repository Unknown I25.110 - Atherosclerotic Winston Koch Active [facility] heart disease of [place] Community coronary artery with Hospital unstable angina pectoris Repository / I25.110(ICD-10) Active Achilles tendinitis, NA Active [facility] right leg / Clinic Main M76.61(ICD-10) [place] Repository Active Pain, unspecified / NA Active [facility] R52(ICD-10) Clinic Main [place] Repository Active Calcaneal spur, right NA Active [facility] foot / M77.31(ICD-10) Clinic Main [place] Repository Active Calcaneal spur, left foot NA Active [facility] / M77.32(ICD-10) Clinic Main [place] Repository Admitting Unknown / UNK(Unknown) NAJMA Active [facility] 8 diagnosis [facility] Repository Unknown Z78.0 - Asymptomatic Oleghe, Active [facility] menopausal state / [place] Community Z78.0(ICD-10) Hospital Repository Active Juvenile osteochondrosis JENELLE, 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, right ankle / (PT) Clinic Main M92.61(ICD-10) [place] Repository Active Other specified symptoms NA Active [facility] and signs involving the Clinic Main circulatory and [place] respiratory systems / Repository R09.89(ICD-10) Unknown M06.4 - Inflammatory Vellanki, 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 / [facility] Community M06.4(ICD-10) Hospital Repository Unknown K21.9 - Gastro-esophageal Vellanki, Active [facility] reflux disease without [facility] Community esophagitis / Hospital K21.9(ICD-10) Repository Unknown G40.909 - Epilepsy, Vellanki, Active [facility] [facility] unspecified, not [facility] intractable, without Hospital status epilepticus / Repository G40.909(ICD-10) Unknown R06.09 - Other forms of Alex, Sugar Tree Active [facility] dyspnea / R06.09(ICD-10) [facility] Repository Active Unknown / UNK(Unknown) NA Active [facility] 8 Clinic Main [place] Repository Unknown E78.0 - Pure Alex, Winston Active [facility] hypercholesterolemia / Community E78.0(ICD-10) Hospital Repository Unknown E55.9 - Vitamin D Oleghe, Active [facility] deficiency, unspecified / [place] [facility] E55.9(ICD-10) Hospital Repository Unknown I50.9 - Heart failure, Vellanki, Active [facility] unspecified / [facility] I50.9(ICD-10) Hospital Repository Unknown G47.33 - Obstructive Vellanki, Active [facility] sleep apnea (adult) [facility] (pediatric) / Hospital G47.33(ICD-10) Repository Unknown N39.0 - Urinary tract Nicole, Saul Active [facility] infection, site not -C [facility] specified / N39.0(ICD-10) Hospital Repository Unknown R30.0 - Dysuria / Nicole, Saul Active [facility] 8 R30.0(ICD-10) -[facility] Hospital Repository Active Atherosclerotic heart NA Active [place] 8 disease of [place] Clinic Main coronary artery without [place] angina pectoris / Repository I25.10(ICD-10) Active Hyperlipidemia, NA Active [place] 8 unspecified / Clinic Main E78.5(ICD-10) [place] Repository Active Encounter for screening NA Active [place] 8 mammogram for malignant Clinic Main neoplasm of breast / [place] Z12.31(ICD-10) Repository Unknown 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 [facility] thyroid nodule / J ACID RETORT OPERATOR-C [facility] E04.1(ICD-10) Hospital Repository Unknown E07.9 - Disorder of [place] Zee Active [facility] thyroid, unspecified / J ACID RETORT OPERATOR-C [facility] E07.9(ICD-10) Hospital Repository Unknown M06.9 - Rheumatoid Jose, Active [facility] arthritis, unspecified / [place] [facility] M06.9(ICD-10) Hospital Repository PROCEDURES PROCEDURES No Procedure Records FoundRESULTS RESULTS CARDIOLOGY VISIT Observed: 04/16/2018 Status: F Source: [place] REPORT 8:55 AM [facility], [facility] REPOSITORY [facility] [address] [place] [address] OFFICE VISIT Date of Service: 04/16/18 MR#: [id number] Acct: [id number] Name: LACY ALVARADO Rep #: [id number] : 1950 Provider: Winston Koch MD Age/Sex: 67/F Location: [facility] [place] Status: Signed HPI HPI Chief Complaint: Follow-up visit Details: LACY ALVARADO, is a 67 F who presents to the office today for follow-up visit. She had presented with a history of hypertension, dyslipidemia, diabetes mellitus, and underwent a cardiac catheterization with demonstrated the following: Normal left main coronary artery with mild calcification. Proximal left anterior descending artery stenosis with 70- 75% stenosis. Left circumflex artery with mild disease. Distal left anterior descending artery with 75% stenosis. Dominant large right coronary artery with mid 30-40% stenosis and posterior descending artery with ostial 70% stenosis. Preserved left ventricular ejection fraction. Patient underwent coronary intervention successfully with a drug-eluting stent to the proximal left anterior descending artery. She also underwent angioplasty with a drug-eluting stent to the proximal right coronary artery and the right coronary artery distally was left in medical management. She is done well since then with only occasional twinges of chest discomfort she has had no dizziness or diaphoresis no near syncope or syncope she has been compliant with all her medications. She would want some simplification of her medications. Her physical exam today demonstrates clear lung wallace regular rate and rhythm and no pedal edema. Intake Vital Signs04/16/18 Height 5 ft 2 in Intake Visit Reasons: s/p pci 11-19 w/Itz Allergies prednisone Adverse Reaction (Verified 04/16/18 08:09) Nausea Medications Gabapentin 600 mg PO BID 02/23/13 [History Confirmed 04/16/18] Glimepiride [Amaryl] 2 mg PO DAILY 02/23/13 [History Confirmed 04/16/18] Hydroxychloroquine [Plaquenil] 200 mg PO BIDCM 02/23/13 [History Confirmed 04/16/18] Dicyclomine HCl [Bentyl] 20 mg PO TIDAC PRN #16 cap 12/25/15 [Rx Confirmed 04/16/18] Aspirin [Aspirin, Baby] 81 mg PO DAILY@0800 02/26/17 [History Confirmed 04/16/18] Cholecalciferol (Vitamin D3) [Vitamin D3] 2,000 unit PO DAILY 02/26/17 [History Confirmed 04/16/18] fluticasone 50 mcg/actuation nasal spray,suspension 1 spray INTRANASAL BID #16 g 06/23/17 [Rx Confirmed 04/16/18] triamcinolone acetonide 0.025 % topical ointment 1 applic TOPICAL QDAY #80 g 09/10/17 [Rx Confirmed 04/16/18] ketotifen 0.025 % (0.035 %) eye drops 1 drp OPHTHALMIC BID PRN #5 ml 09/14/17 [Rx Confirmed 04/16/18] divalproex ER 250 mg tablet,extended release 24 hr 1,000 mg PO QHS #120 tab 03/17/18 [Rx Confirmed 04/16/18] Cyclobenzaprine HCl 10 mg PO TID PRN PRN #30 tab 03/23/18 [Rx Confirmed 04/16/18] Cyclobenzaprine [Flexeril] 10 mg PO TID PRN PRN tab 03/23/18 [Rx Confirmed 04/16/18] metformin 850 mg tablet 850 mg PO BIDCM #180 tab 04/12/18 [Rx Confirmed 04/16/18] atorvastatin 80 mg tablet 80 mg PO QHS #90 tab 04/16/18 [Rx Confirmed 04/16/18] carvedilol 3.125 mg tablet 3.125 mg PO BID #180 tab 04/16/18 [Rx Confirmed 04/16/18] clopidogrel 75 mg tablet 75 mg PO DAILY #90 tab 04/16/18 [Rx Confirmed 04/16/18] losartan 25 mg tablet 25 mg PO DAILY #90 tab 04/16/18 [Rx Confirmed 04/16/18] PFSH Medical History Essential (primary) hypertension (Chronic) Chronic diastolic CHF (congestive heart failure) (Chronic) Hyperlipidemia (Chronic) Atherosclerotic heart disease of [place] coronary artery without angina pectoris (Chronic) Conversion disorder (Chronic) Non-toxic goiter (Chronic) Obstructive sleep apnea (Chronic) Diabetes type 2, controlled (Chronic) Hives (Chronic) RIGHT FOOT HEEL SPUR (Chronic) Rheumatoid arthritis (Chronic) Seasonal allergies (Chronic) Seizures (Chronic) Surgical History History of coronary artery stent placement (Resolved 03/22/18) H/O: hysterectomy (Resolved) History of carpal tunnel surgery (Resolved) History of section (Resolved) Family History Grandmother Alcoholism Cancer Arthritis Mother Alcoholism Diabetes blood clots Hypertension Grandfather Heart disease Sister Thyroid disorder Other Breast cancer Cervical cancer Colon cancer Social History Smoking Status: Never smoker second hand exposure: Yes alcohol intake: never substance use type: does not use what type of physical activity do you participate in: none ROS Const Const: Negative for fatigue, weakness, difficulty sleeping, frequent falls, excessive sweating or headache(s) Eyes Eyes: Negative for loss of peripheral vision, transient loss of vision, blurry vision, tunnel vision or double vision ENT ENT: Negative for headache(s), dizziness, Nosebleed/epistaxis or balance problems Cardio Chest Pain: Yes Frequency: other (Occasional) Character: tightness Location: mid sternal Palpitations: No Edema: None Muscle aches with walking: None Resp Respiratory: Positive for wheezing (expiratory wheeze in LLL); negative for SOB with activity, SOB at rest, SOB orthopnea\SOB lying down, paroxysmal nocturnal dyspnea or Cough GI GI: Negative nausea, heartburn, black,tarry stools or vomiting : Negative for hematuria Musc Musc: Negative for balance problems, muscle aches/ myalgia, muscle weakness or joint pain Skin Skin: Negative non-healing lesions, unusual bruising or rash Neuro Neuro: Negative for weakness, frequent falls, headache(s), blurry vision, double vision, dizziness, lightheadedness, orthostatic symptoms, near syncope, syncope or lack of coordination True Hematologic/Lymphatic: Negative for easy bruising or easy bleeding Endo Endo: Negative for fatigue, excessive sweating or increased thirst/drinking Psych Psych: Negative for anxiety or depression Allergy Allergy/Immunology: Negative for hives, Negative for rash Cardiology Exam Const Appearance: cooperative, healthy appearing, well developed, well groomed and no acute distress Nutritional Appearance: well nourished and average body habitus Orientation: alert, awake and oriented x3 Head Head: normal to inspection, normocephalic and atraumatic Ears: hearing grossly normal bilaterally and external ears normal Nose: external nose normal, nasal mucous membranes and turbinates normal, nares normal, septum normal, no nasal discharge Face and Sinus: face symmetric Mouth: oral mucosae normal, tongue normal, oropharynx normal and moist mucous membranes Teeth and gingiva: dentition normal Throat: posterior oropharynx normal, tonsils normal and uvula midline Eyes General: appearance normal, both eyes and all related structures Eyelids: eyelids normal Conjunctivae: conjunctivae normal Pupils: PERRL, normal by confrontation and accommodation normal EOM: EOM intact bilaterally Neck Neck: normal visual inspection, trachea midline and no JVD JVD: +5 Carotids: normal carotid upstroke and bounding pulses Chest Chest inspection: normal inspection of the chest, symmetric chest movement and normal respiratory effort Auscultation: Bilateral: Clear to Auscultation Cardio Palpation: normal PMI Rate: regular rate Rhythm: regular rhythm Heart sounds: S1 normal, S2 normal and normal, physiologic split S2; negative rub, gallop or murmur GI GI: normal to inspection, soft, no hepatosplenomegaly and bowel sounds present Neuro General: alert, awake, oriented x3, no focal sensory deficit, gait normal and moves all extremities Skin Skin: no rashes or lesions noted Extremities Pulses: Normal: Right Femoral Pulse, Left Femoral Pulse, Right Dorsalis Pedis Pulse, Left Dorsalis Pedis Pulse, Right Posterior Tibial Pulse, Left Posterior Tibial Pulse, Right Radial Pulse, Left Radial Pulse Lower Extremity Edema: None: Bilateral Musculoskel Musculoskeletal: No joint tenderness Psych Psychological: normal affect Assessment AND Plan 1. Atherosclerotic heart disease of [place] coronary artery without angina pectoris I25.10 YESENIA to mid LAD (3.0 X 38 Promus Synergy); YESENIA to mid ISR (2.5 X 38 Promus Synergy); and YESENIA to proximal RCA (2.5 X12 Promus Synergy) 03/22/18 Plan She is status post multivessel angioplasty. At this time my recommendation is for us to continue the aggressive risk factor modification she is very active and of encouraged her to continue with that. I would like to see her again in approximately 6 months. Orders Orders: 2. Essential (primary) hypertension I10 Plan Her blood pressure appears to be under excellent control on the current medical regimen. No other major changes will be made. Orders Orders: 3. Pure hypercholesterolemia E78.00 Plan She does have a history of hyperlipidemia. Her most recent lipid profile demonstrates a total cholesterol 168, LDL 106 and HDL of 39. Thank you for allowing me to participate in the care of your patient. 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) Coding Level of Care Code Off vis,est,level 4 Diagnoses Atherosclerotic heart disease of [place] coronary artery without angina pectoris I25.10 Essential (primary) hypertension I10 Pure hypercholesterolemia E78.00 Hyperlipidemia type: pure hypercholesterolemia Coding Level of Care Code Off vis,est,level 4 Diagnoses Atherosclerotic heart disease of [place] coronary artery without angina pectoris I25.10 Essential (primary) hypertension I10 Pure hypercholesterolemia E78.00 Hyperlipidemia type: pure hypercholesterolemia 04/16/18 0855 <Electronically signed by Winston Koch MD> Date Winston Koch MD Cosigner Signature: Date (if applicable) CC: Mayda Garcia MD HEMOGLOBIN A1C Collected: 04/12/2018 Status: F Source: [place] 7:35 AM [facility] REPOSITORY TYPE CODE TESTS RESULT OUT OF RANGE REFERENCE UNITS LAB L501.9985 4.2-6.3 % High HGB A1C 7.7 Performed By: #### L501.9985 #### [facility] [address] [place], [address] 12 LEAD ELECTROCARDIOGRAM Observed: 04/02/2018 Status: F Source: [place] 9:19 AM [facility] REPOSITORY [facility] Cardiovascular Services [address] [place] [address] 12 Lead EKG 03/23/18 0428 MR#: [id number] Acct: [id number] Name: LACY ALVARADO Rep #: [id number] : 1950 67 From: Winston Koch MD Attending Dr: Dennys Lovett MD Status: DIS IN Ordering Dr: Mikey Reynaga MD Date: 03/23/18 Location: ICU Sex: F AA Admitted: 03/21/18 Test Reason : AM EKG Blood Pressure : / mmHG Vent. Rate : 076 BPM Atrial Rate : 076 BPM P-R Int : 170 ms QRS Dur : 082 ms QT Int : 384 ms P-R-T Axes : 054 008 020 degrees QTc Int : 432 ms Normal sinus rhythm Normal ECG When compared with ECG of 22-MAR-2018 09:26, MANUAL COMPARISON REQUIRED, DATA IS UNCONFIRMED Confirmed by WINSTON KOCH MD ([id number]), acquisition editor NITISH CLARKE ([id number]) on 03/26/2018 2:03:45 PM Referred By: BONY Confirmed By:WINSTON KOCH MD 03/26/18 1403 Date Winston Koch MD CC: Mikey Reynaga MD; Mayda Garcia MD; Dennys Lovett MD Signed 12 LEAD ELECTROCARDIOGRAM Observed: 04/02/2018 Status: F Source: [place] 9:19 AM [facility] REPOSITORY [facility] Cardiovascular Services [address] [place] [address] 12 Lead EKG 03/22/18 0926 MR#: [id number] Acct: [id number] Name: LACY ALVARADO Rep #: [id number] : 1950 67 From: Winston Koch MD Attending Dr: Dennys Lovett MD Status: DIS IN Ordering Dr: Mikey Reynaga MD Date: 03/22/18 Location: ICU Sex: F AA Admitted: 03/21/18 Test Reason : POST PCI Blood Pressure : / mmHG Vent. Rate : 084 BPM Atrial Rate : 084 BPM P-R Int : 154 ms QRS Dur : 076 ms QT Int : 370 ms P-R-T Axes : 073 033 039 degrees QTc Int : 437 ms Normal sinus rhythm Normal ECG When compared with ECG of 22-MAR-2018 05:41, MANUAL COMPARISON REQUIRED, DATA IS UNCONFIRMED Confirmed by WINSTON KOCH MD ([id number]), acquisition editor NITISH CLARKE ([id number]) on 03/26/2018 2:05:22 PM Referred By: ARA Confirmed By:WINSTON KOCH MD 03/26/18 1405 Date Winston Koch MD CC: Mikey Reynaga MD; Mayda Garcia MD; Dennys Lovett MD Signed 12 LEAD ELECTROCARDIOGRAM Observed: 04/02/2018 Status: F Source: [place] 9:18 AM [facility] REPOSITORY [facility] Cardiovascular Services [address] [place] [address] 12 Lead EKG 03/22/18 0541 MR#: [id number] Acct: [id number] Name: LACY ALVARADO Rep #: [id number] : 1950 67 From: Winston Koch MD Attending Dr: Dennys Lovett MD Status: DIS IN Ordering Dr: Daya Mobley MD Date: 03/22/18 Location: ICU Sex: F AA Admitted: 03/21/18 Test Reason : MORNING EKG Blood Pressure : / mmHG Vent. Rate : 090 BPM Atrial Rate : 090 BPM P-R Int : 152 ms QRS Dur : 078 ms QT Int : 370 ms P-R-T Axes : 056 016 029 degrees QTc Int : 452 ms Normal sinus rhythm Normal ECG When compared with ECG of 21-MAR-2018 06:13, MANUAL COMPARISON REQUIRED, DATA IS UNCONFIRMED Confirmed by WINSTON KOCH MD ([id number]), acquisition editor NITISH CLARKE ([id number]) on 03/26/2018 1:55:43 PM Referred By: KAN Confirmed By:WINSTON KOCH MD 03/26/18 6545 Date Winston Koch MD CC: Daya Mobley MD; Mayda Garcia MD; Dennys Lovett MD Signed 12 LEAD ELECTROCARDIOGRAM Observed: 04/02/2018 Status: F Source: [place] 9:18 AM [facility] REPOSITORY [facility] Cardiovascular Services [address] [place] [address] [place] [address] 12 Lead EKG 03/21/18612 MR#: [id number] Acct: [id number] Name: LACY ALVARADO Rep #: [id number] : 1950 67 From: Winston Koch MD Attending Dr: Dennys Lovett MD Status: DIS IN Ordering Dr: Parker Meléndez MD Date: 03/21/18 Location: ICU Sex: F AA Admitted: 03/21/18 Test Reason : AM EKG Blood Pressure : / mmHG Vent. Rate : 073 BPM Atrial Rate : 073 BPM P-R Int : 158 ms QRS Dur : 082 ms QT Int : 400 ms P-R-T Axes : 057 018 034 degrees QTc Int : 440 ms Normal sinus rhythm Normal ECG When compared with ECG of 20-MAR-2018 22:00, MANUAL COMPARISON REQUIRED, DATA IS UNCONFIRMED Confirmed by WINSTON KOCH MD ([id number]), acquisition editor NITISH CLARKE ([id number]) on 03/26/2018 1:58:00 PM Referred By: DR CANALES Confirmed By:WINSTON KOCH MD 03/26/18 6407 Date Winston Koch MD CC: Mayda Garcia MD; Parker Meléndez MD; Dennys Lovett MD Signed 12 LEAD ELECTROCARDIOGRAM Observed: 04/02/2018 Status: F Source: [place] 9:18 AM [facility] REPOSITORY [facility] Cardiovascular Services [address] [place] [address] 12 Lead EKG 03/20/18 2200 MR#: [id number] Acct: [id number] Name: LACY ALVARADO Rep #: [id number] : 1950 67 From: Winston Koch MD Attending Dr: Dennys Lovett MD Status: DIS IN Ordering Dr: Parker Meléndez MD Date: 03/20/18 Location: ICU Sex: F AA Admitted: 03/21/18 Test Reason : CP ADMIT Blood Pressure : / mmHG Vent. Rate : 091 BPM Atrial Rate : 091 BPM P-R Int : 144 ms QRS Dur : 078 ms QT Int : 368 ms P-R-T Axes : 068 037 042 degrees QTc Int : 452 ms Normal sinus rhythm Nonspecific T wave abnormality Abnormal ECG When compared with ECG of 22-JUN-2017 10:36, No significant change was found Confirmed by WINSTON KOCH MD ([id number]), acquisition editor NITISH CLARKE ([id number]) on 03/26/2018 1:59:42 PM Referred By: DR CANALES Confirmed By:WINSTON KOCH MD 03/26/18 135 Date Winston Koch MD CC: Mayda Garcia MD; Parker Meléndez MD; Dennys Lovett MD Signed 12 LEAD ELECTROCARDIOGRAM Observed: 04/02/2018 Status: F Source: [place] 9:14 AM [facility] REPOSITORY [facility] Cardiovascular Services [address] [place] [address] 12 Lead EKG 03/20/18 1839 MR#: [id number] Acct: [id number] Name: LACY ALVARADO Rep #: [id number] : 1950 67 From: Winston Koch MD Attending Dr: Dennys Lovett MD Status: DIS IN Ordering Dr: Ulisses Chan DO Date: 03/20/18 Location: ICU Sex: F AA Admitted: 03/21/18 Test Reason : CP Blood Pressure : / mmHG Vent. Rate : 121 BPM Atrial Rate : 121 BPM P-R Int : 146 ms QRS Dur : 076 ms QT Int : 314 ms P-R-T Axes : 058 017 043 degrees QTc Int : 445 ms Sinus tachycardia Possible Left atrial enlargement Borderline ECG Confirmed by WINSTON KOCH MD ([id number]), acquisition editor NITISH CLARKE ([id number]) on 03/24/2018 11:56:55 AM Referred By: DC Confirmed By:WINSTON KOCH MD 03/24/181155 Date Winston Koch MD CC: Mayda Garcia MD; Dennys Lovett MD; Ulisses Chan Signed 12 LEAD ELECTROCARDIOGRAM Observed: 04/02/2018 Status: F Source: [place] 9:14 AM [facility] Cardiovascular Services [address] [place] [address] 12 Lead EKG 03/20/181936 MR#: [id number] Acct: [id number] Name: LACY ALVARADO Rep #: [id number] : 1950 67 From: Winston Koch MD Attending Dr: Dennys Lovett MD Status: DIS IN Ordering Dr: Ulisses Chan DO Date: 03/20/18 Location: ICU Sex: F AA Admitted: 03/21/18 Test Reason : REPEAT Blood Pressure : / mmHG Vent. Rate : 099 BPM Atrial Rate : 099 BPM P-R Int : 150 ms QRS Dur : 078 ms QT Int : 346 ms P-R-T Axes : 048 010 022 degrees QTc Int : 444 ms Normal sinus rhythm Normal ECG Confirmed by WINSTON KOCH MD ([id number]), acquisition editor NITISH CLARKE ([id number]) on 03/24/2018 11:57:12 AM Referred By: TL Confirmed By:WINSTON KOCH MD 03/24/18 6811 Date Winston Koch MD CC: Mayda Garcia MD; Dennys Lovett MD; Ulisses Chan Signed CR - HISTORY AND Observed: 03/30/2018 Status: F Source: [place] PHYSICAL 2:20 PM [facility] REPOSITORY [facility] Cardiac Rehab [address] [place] [address] CR - History AND Physical MR#: [id number] Acct: [id number] Name: LACY ALVARADO Rep #: [id number] : 1950 67 From: Pelon Mallory ELECTRICAL SERVICE TECHNICIAN, STRUCTURAL LAYOUT WORKER, BS PCP: Mayda Garcia MD DOS: 03/30/18 CR - History AND Physical - General Arrival date:: 03/30/18 Arrival time:: 09:30 Date of Referral:: 03/22/18 Date of CR Evaluation:: 03/30/18 Referring Physician: Dr. Winston Koch Primary Diagnosis: PCI w/coronary stent placement - History of Present Cardiac Event Onset Date: Enter Onset Date of cardiac illnesses in Comment field below Acute Myocardial Infarction within 12 months:: Yes - NSTEMI got admitted. PTCA or coronary stenting:: Yes Type of Symptoms:: arm pain, mid sternal chest pain, went home experienced head ache and chest pain, burst of energy started home chores laundry and went to lay down became worsened. ADDITIONAL BLOCKAGE OF ANOTHER CORONARY VESSEL BEING MONITORED. Interventions with present event:: ADMIT TO [facility] AND TAKEN TO STAFF RN FOR CATH AND STENT. Were there any complications?: MINOR CHEST DISCOMFORT BUT NO ADVERSE REACTION - Medications Home Medications: Ambulatory Orders Medication Instructions Recorded - Allergies Allergies/Adverse Reactions: Allergies prednisone Adverse Reaction (Verified 03/20/18 18:38) Nausea - Sleep Disorder Evaluation Hx of Sleep Apnea: Yes Do you snore loudly (louder than talking or can be heard through closed doors)?: Yes - CPAP GETTING BACK TO ROUTINE USE. Advanced Directives - Advanced Directives Power of Sales Estimator: Yes - ATTEMPT TO REVIVE, BUT NO [facility] LIFE SUPPORT OR CARE Living Will: Yes Advance Directives Information Provided: No Advance Directives on File: Yes DNR Order?:: Yes - MOLST See MOLST form: No Past Medical History - Past Medical Illness Medical History: Past Medical History (Last Updated 03/30/18 @ 10:12 by Pelon Mallory, ELECTRICAL SERVICE TECHNICIAN, STRUCTURAL LAYOUT WORKER, BS) Atherosclerotic heart disease of [place] coronary artery without angina pectoris (Chronic) I25.10 RIGHT FOOT HEEL SPUR Arthritis M19.90 Diabetes type 2, controlled E11.9 H/O: hysterectomy Z98.890, Z90.710 Heart disease I51.9 High cholesterol E78.00 Hives L50.9 Rheumatoid arthritis M06.9 Seasonal allergies J30.2 Seizures R56.9 HTN (hypertension) I10 - Past Surgical History Surgical History: Past Surgical History (Last Updated 03/22/18 @ 18:17 by iLly Valles) Stented coronary artery (Chronic) Onset Date: 03/22/18 Z95.5 YESENIA to mid LAD (3.0 X 38 Promus Synergy); YESENIA to mid ISR (2.5 X 38 Promus Synergy); and YESENIA to proximal RCA (2.5 X12 Promus Synergy) History of carpal tunnel surgery Z92.89 History of section Z98.891 Surgical History: hysterectomy - Family History Summary Family History: Family History (Last Reviewed 03/21/18 @ 01:23 by Parker Meléndez MD) Grandmother Alcoholism Cancer Arthritis Mother Alcoholism Diabetes blood clots Hypertension Grandfather Heart disease Sister Thyroid disorder Other Breast cancer Cervical cancer Colon cancer Social History - Smoking History Smoking Status: Never smoker Hx Tobacco Use: No Hx Smoking Exposure: No - Alcohol Use Alcohol Usage: No - Substance Abuse Hx Substance Use: No - Occupation 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 Recreational Activities: I am able to engage in most, but not all activities - HAVE NOTICED SLOWED DOWN, TAKING IT DAILY, STILL GET SOME SHORTNESS OF BREATH, SOME SLIGHT CHEST PAIN BUT NOTHING THAT COMPARED TO BEFORE. Social Environment - Status Marital Status: Single - Current Living Arrangements Living Environment:: Family - Children How many children do you have?: 2 - 2-SONS IN AREA Do any of your children live nearby?: Yes - Safety Do you feel safe in your surroundings?: Yes Review of Systems - Review of Systems Hints: Right click = Denies (Slash). Left click = Reports ([place]) Review of Present Symptoms: Reports: Shortness of Breath with Exertion, Angina - SOME MILD DISCOMFORT NOTED BUT NOTHING THAT COMPARED TO PREVIOUS EVENT., Fatigue, Appetite - Normal. Denies: Shortness of Breath at Rest, Dizziness/Lightheadedness, Heart Arrhythmia/Irregularities, Appetite - Special Diet, Sleep - Normal - CAN BE UP FOR ONE OR TWO NIGHTS DEPENDING ON THE LINA. - Pain Is Patient Pain Free?: Yes Pain Location: none Pain Level: 0/10 Risk Factor Assessment - Vital Signs Temperature: 98.7 F Respiratory Rate: 16 Pulse Ox: 97 Nailbeds:: PAINTED - Pulse Pulse Rate: 87 Pulse Rhythm: Regular - Hypertension Blood Pressure Sitting - Left Arm: 124/70 - Stress Stress: Work-related - FREQUENCY OF HOURS WORKING. - Diabetes Diabetic History: Type II Nutrition Referral for Diabetes: Yes - Obesity Height: 5 ft 2 in Weight:: 179 lb Weight in Pounds: 179.0 lbs Weight Source: Standing Scale Body Mass Index (BMI): 32.7 Nutritional Referral for Obesity: Yes - DM TYPE II, OBESITY, CAD, - Physical Inactivity Physical Inactivity: None - Risk Stratification Risk Guidelines: Lowest Risk: Risk Factor for Smoking, Risk Factor for Dyslipidemia, Risk Factor for Diabetes, Risk Factor for Hypertension, Risk Factor for Sedentary Lifestyle, Risk Factor for Depression, Highest Risk: Risk Factor for Obesity - For Smoking Smoking Risk Guidelines: Smoking Low Risk: None or quit greater than 6 months ago. Smoking Moderate Risk: Smoker or quit 6 months or less ago. Smoking High Risk: Smoker - For Dyslipidemia Dyslipidemia Risk Guidelines: Low Risk: Moderate Risk: High Risk: 15-25% fat 25.1-29% fat >/= 30% fat. <7% sat fat 7-9% sat fat >9% sat fat. <150 mg chol 150-299 mg chol >/= 300 mg chol. LDL <100 LDL 100-129 LDL >/= 130. Chol/HDL ratio <5.0 Chol/HDL ratio 5.0-6.0 Chol/HDL ratio >6.0. Triglycerides <100 Triglycerides 100-149 Triglycerides >/= 150 - For Diabetes Mellitus Diabetes Risk Guidelines: Diabetes Low Risk: HgA1c <6.5% and/or FBG <120. Diabetes Moderate Risk: HgA1c 6.6-7.9% and/or FBG 120- 180. Diabetes High Risk: HgA1c >/= 8% and/or FBG >180 - For Obesity/Overweight Obesity/Overweight Risk Guidelines: Obesity Low Risk: BMI <25.0. Obesity Moderate Risk: BMI 25-29.9. Obesity High Risk: BMI >/= 30.0 - For Hypertension Hypertension Risk Guidelines: Hypertension Low Risk: Systolic <120 and Diastolic <80. Hypertension Moderate Risk: Systolic 120-139 and Diastolic 80-89. Hypertension High Risk: Systolic >/= 140 and Diastolic >/= 90 - For Sedentary Lifestyle Sedentary Lifestyle Risk Guidelines: Sedentary Lifestyle Low Risk: >/= 1,500 kcal/week. Sedentary Lifestyle Moderate Risk: 700-1,499 kcal/week. Sedentary Lifestyle High Risk: < 700 kcal/week - For Depression Depression Risk Guidelines: Depression Low Risk: Not clinically depressed. Depression Moderate Risk: Mildly depressed. Depression High Risk: Clinically depressed - Family History Family History: Family History (Last Reviewed 03/21/18 @ 01:23 by Parker Meléndez MD) Grandmother Alcoholism Cancer Arthritis Mother Alcoholism Diabetes blood clots Hypertension Grandfather Heart disease Sister Thyroid disorder Other Breast cancer Cervical cancer Colon cancer Motivation - Motivation to Participate On a scale of 1 to 10, how prepared are you to commit to attending program?: 10 What do you see as barriers to successfully being able to complete the program?: NONE What do you see as the benefits of succesfully completing the program? In other words, what do you hope to get out of participating in the program?: TEACHING HEALTHIER LIFESTYLE, GETTING STRONGER, DIET, LIFESTYLE CHANGES Are there issues you are dealing with that will interfere with completing the program?: NONE Do you have a spouse or signficant other, family or friends who will help support you to complete the program?: YES. 03/30/18 1025 <Electronically signed by Pelon Mallory CRT, RCP, BS> Date Pelon Mallory CRT, RCP, ABIGAIL Outcome assessment reviewed. Exercise plan approved as documented. Treatment plan and goals support patient needs/abilities. Continue with current plan. I certify the patient demonstrates improvement and remains willing and capable of participation. the patient continues to benefit from cardiac rehab services/training. The patient may continue at current intensity, endurance and modality and progress per protocol. 03/30/18 1420 <Electronically signed by Winston Koch MD> Cosigner Signature: Date Winston Koch MD CC: Signed INTERNAL MEDICINE Observed: 03/29/2018 Status: F Source: [place] OFFICE VISIT 4:41 PM [facility] [address] [place] [address] [place] [address] OFFICE VISIT Date of Service: 03/29/18 MR#: [id number] Acct: [id number] Name: LACY ALVARADO Rep #: [id number] : 1950 Provider: Mayda Garcia MD Age/Sex: 67/F Location: [facility] Status: Signed Intake Vital Signs03/29/18 Body Mass Index (BMI) 32.7 03/29/18 Height 5 ft 2 in Intake Visit Reasons: 3 MO F/U AND F/U STENT PLACEMENT Chief Complaint: follow-up visit Is patient in pain?: No Allergies prednisone Adverse Reaction (Verified 03/20/18 18:38) Nausea Medications Metformin HCl [Glucophage] 500 mg PO BIDCM 02/22/13 [History Confirmed 03/20/18] Gabapentin 600 mg PO BID 02/23/13 [History Confirmed 03/20/18] Glimepiride [Amaryl] 2 mg PO DAILY 02/23/13 [History Confirmed 03/20/18] Hydroxychloroquine [Plaquenil] 200 mg PO BIDCM 02/23/13 [History Confirmed 03/20/18] Omeprazole [Prilosec] 20 mg PO DAILY 02/23/13 [History Confirmed 03/20/18] Dicyclomine HCl [Bentyl] 20 mg PO TIDAC PRN #16 cap 12/25/15 [Rx Confirmed 03/20/18] Aspirin [Aspirin, Baby] 81 mg PO DAILY@0800 02/26/17 [History Confirmed 03/29/18] Cholecalciferol (Vitamin D3) [Vitamin D3] 2,000 unit PO DAILY 02/26/17 [History Confirmed 03/20/18] Losartan Potassium [Cozaar] 25 mg PO DAILY 02/26/17 [History Confirmed 03/20/18] fluticasone 50 mcg/actuation nasal spray,suspension 1 spray INTRANASAL BID #16 g 06/23/17 [Rx Confirmed 03/20/18] triamcinolone acetonide 0.025 % topical ointment 1 applic TOPICAL QDAY #80 g 09/10/17 [Rx Confirmed 03/20/18] ketotifen 0.025 % (0.035 %) eye drops 1 drp OPHTHALMIC BID PRN #5 ml 09/14/17 [Rx Confirmed 03/20/18] divalproex ER 250 mg tablet,extended release 24 hr 1,000 mg PO QHS #120 tab 03/17/18 [Rx Confirmed 03/20/18] Atorvastatin Calcium [Lipitor] 80 mg PO QHS #30 tab 03/23/18 [Rx Confirmed 03/29/18] Carvedilol [Coreg (Beta Arnold)] 3.125 mg PO BID #60 tab 03/23/18 [Rx Confirmed 03/29/18] Clopidogrel Bisulfate [Plavix] 75 mg PO DAILY #30 tab 03/23/18 [Rx Confirmed 03/29/18] Cyclobenzaprine HCl 10 mg PO TID PRN PRN #30 tab 03/23/18 [Rx Confirmed 03/20/18] Cyclobenzaprine [Flexeril] 10 mg PO TID PRN PRN tab 03/23/18 [Rx] Post menopausal: Yes PFSH Medical History Atherosclerotic heart disease of [place] coronary artery without angina pectoris (Chronic) Arthritis (Acute) Diabetes type 2, controlled (Acute) H/O: hysterectomy (Acute) Heart disease (Acute) High cholesterol (Acute) Hives (Acute) Rheumatoid arthritis (Acute) Seasonal allergies (Acute) Seizures (Acute) HTN (hypertension) (Chronic) Surgical History Stented coronary artery (Chronic 03/22/18) History of carpal tunnel surgery (Acute) History of section (Acute) Family History Grandmother Alcoholism Cancer Arthritis Mother Alcoholism Diabetes blood clots Hypertension Grandfather Heart disease Sister Thyroid disorder Other Breast cancer Cervical cancer Colon cancer Social History Smoking Status: Never smoker second hand exposure: Yes alcohol intake: never substance use type: does not use what type of physical activity do you participate in: none HPI HPI Chief Complaint: follow-up visit Details: LACY ALVARADO, is a 67yo F who presents to the office today for follow-up of her chronic medical conditions and also her recent hospital admission for chest pain secondary to ACS. She is status post stent. She has done well since hospital discharge and has had minimal chest pain. Still not back to her baseline activity level due to shortness of breath with increased activity. She is scheduled to start cardiac rehab in a few days. She has no other concerns at this time. ROS Const Constitutional: No weight change, body ache, chills, fatigue, sleep problems, fever(s), change in appetite, snoring, weakness, frequent falls, headache(s) or excessive sweating Eyes Eyes: No change in vision, eye pain, light sensitivity or blurry vision ENT ENT: No headache(s), abnormal hearing, ear pain, tinnitus, nasal congestion, sore throat or neck pain Resp Respiratory: No snoring, cough, shortness of breath or wheezing Cardio Cardiology: No excessive sweating, chest pain at rest, chest pain with exertion, shortness of breath, dyspnea on exertion, palpitations, orthopnea or lightheadedness Gastro GI: No abdominal pain, change in bowel habits, constipation, diarrhea, vomiting, nausea/dyspepsia or cramping Genitourinary-Female: No burning urination, painful urination, urinary incontinence, urinary frequency, abnormal vaginal bleeding, pelvic pain or other Musc Musculoskeletal: No neck pain, abnormal walking, joint pain, back pain, limited range of motion, numbness or tingling Skin Skin: No redness, dry skin, itching, lesions, wounds or rash Neuro Neurology: No weakness, frequent falls, headache(s), abnormal hearing, abnormal walking, numbness, tingling, abnormal speech, dizziness or memory loss Psych Psychiatric: No change in appetite, No memory loss, No anxiety, No depression, No Thoughts of harming yourself/Others Endo Endocrine: No fatigue, excessive sweating, cold intolerance, increased thirst/drinking, heat intolerance, flushing or increased hunger Aller/Imm Allergy/Immunologic: No wheezing, itchy eyes, hives or seasonal allergy symptoms True/Lymp Hematologic/Lymphatic: No easy bleeding, easy bruising or enlarged lymph nodes Exam Const General: cooperative, no acute distress Orientation: alert, awake, oriented x3 HENMT Head: atraumatic, normocephalic Ears: hearing grossly normal bilaterally Resp Effort AND Inspection: normal respiratory effort, able to speak in complete sentences Neuro General: alert, awake, oriented x3, moves all extremities, CN's II-XI intact bilaterally Extrem General: no clubbing, cyanosis or edema Psych Appearance: grossly normal Mood: congruent mood Affect: normal affect Assessment AND Plan 1. CAD (coronary artery disease) I25.10 Plan Recent episode of chest pain and admission for ACS with stent placement. Currently on dual antiplatelet therapy. Scheduled to start cardiac rehab on and follow-up with cardiology in 2 weeks. Risk factor optimization discussed. Follow-up at next visit. Orders Orders: 2. Pure hypercholesterolemia E78.00 Plan LDL of 106. Not at goal with a history of diabetes. LDL of less than 70 recommended. Currently maxed out on Lipitor. Lifestyle and dietary modifications discussed for now if no significant improvement, may consider Repatha. Repeat lipid profile in 6 months. 3. Type 2 diabetes mellitus E11.9 Plan Last A1c of 6.7. Repeat A1c ordered. Due to associated history of obesity, referred to the [facility]. Continue current medication and lifestyle/dietary modifications. Orders Orders: Referrals: 4. Essential hypertension I10 Plan Optimally controlled. Continue current medication and lifestyle/dietary modifications. 5. Osteopenia M85.80 Plan T score -2.2 in her lumbar spine. Currently on calcium and vitamin D supplements. Muscle strengthening exercise also recommended. Repeat bone density in 2 years. 6. Healthcare maintenance Z00.00 Plan Received her flu shot in the hospital. Will go through records of her pneumonia. Mammogram due next year. Hx of Hysterectomy. This note was generated with Assert[employer] dictation software. It may contain incorrect words, spelling, and punctuation that were not noted in checking the note before signing. Plan Detail Other Orders Referrals: Coding Level of Care Code Off vis,est,level 4 Diagnoses CAD (coronary artery disease) I25.10 Pure hypercholesterolemia E78.00 Hyperlipidemia type: pure hypercholesterolemia Type 2 diabetes mellitus E11.9 Essential hypertension I10 Hypertension type: essential hypertension Osteopenia M85.80 Healthcare maintenance Z00.00 03/29/18 1641 <Electronically signed by Mayda Garcia MD> Date Mayda Garcia MD [facility] Signature: Date (if applicable) CC: DISCHARGE SUMMARY Observed: 03/23/2018 Status: F Source: [place] 4:31 PM [facility] REPOSITORY [facility] Medical Records Department [address] [place] [address] Discharge Summary 03/23/18 0832 MR#: [id number] Acct: [id number] Name: LACY ALVARADO Rep #: [id number] : 1950 67 From: Dennys Lovett MD PCP: Mayda Garcia MD Status: DIS IN Y Location: ICU [id number] Discharge Date and Diagnosis Date of Admission: 03/20/18 Date of Discharge: 03/23/18 - Primary Discharge Diagnosis Active and Suspected Problems (Last Updated 03/22/18 @ 18:14 by Lily Valles) Chest pain (Acute) Unstable angina with acute coronary syndrome with coronary artery atherosclerosis/stenosis status post PCI - Secondary Discharge Diagnosis Chronic Problems (Last Updated 03/22/18 @ 18:14 by Lily Valles) Atherosclerotic heart disease of [place] coronary artery without angina pectoris (Chronic) Stented coronary artery (Chronic 03/22/18) YESENIA to mid LAD (3.0 X 38 [employer]); YESENIA to mid ISR (2.5 X 38 [employer]); and YESENIA to proximal RCA (2.5 X12 [employer]) Heel spur (Chronic) Type 2 diabetes mellitus (Chronic) Obesity (Chronic) Vitamin D deficiency (Chronic) Hypertension (Chronic) Seizure disorder (Chronic) Diabetes mellitus (Chronic) type 2 Conversion disorder (Chronic) Cerebrovascular disease (Chronic) 45% L ICA stenosis Rheumatoid arthritis (Chronic) Hx of chronic inflammatory arthritis (Chronic) Chronic diastolic CHF (congestive heart failure) (Chronic) Hyperlipidemia (Chronic) Obstructive sleep apnea (Chronic) Hospital Course and Treatment Operations: None Summary of Care Provided: The patient is a 67 year old F with multiple comorbidities including hypertension, diabetes mellitus type 2, seizure disorder and stage I chronic diastolic heart failure was admitted for 2 days of progressively worsening substernal squeezing chest pain with radiation to left arm associated with diaphoresis, headache and shortness of breath consistent with unstable angina. EKG shows sinus tachycardia. The patient was admitted in PCU and had serial troponin enzymes which were negative. The patient was started on ACS protocol on aspirin, high-intensity statin, Coreg, losartan and nitrate. Cardiology was consulted. patient had negative nuclear stress MPI. Subsequently had cardiac cath and had stent in mid LAD, mid in-stent restenosis with another stent put in upstream to previous one and proximal RCA. Patient was transferred to ICU after PCI. Patient is recommended aspirin indefinitely and Plavix for at least 12 months. Manual sheath removal as per protocol. Fasting lipid profile shows triglyceride 116, total cholesterol 168, LDL 106, HDL 39. On high intensity statin. Discharge medication reconciliation done. Discharge medications and follow-up instructions including cardiac rehab discussed with the patient. Prescription sent for carvedilol, atorvastatin, Plavix and patient has losartan. Follow with Dr. koch. Follow-up PCP. Total time spent, exact 35 minutes on discharge meds reconciliation, examination, review of imaging and blood test and discussion with the patient on follow-up instructions. - Physical Exam General: Alert, Oriented x3, Cooperative HEENT: Atraumatic, PERRLA, EOMI, Normocephalic Neck: Supple, No JVD, Negative Carotid Bruits Lungs: Clear to auscultation, Normal air movement, No rhonchi, No wheeze, No rales Cardiovascular: Regular rate, Regular Rhythm, Normal S1, Normal S2, No murmurs Abdomen: Bowel Sounds Present, Soft, Non Tender, Non-Distended Extremities: No edema, Capillary Refill Less than 3 Seconds, - - Right femoral region shows no hematoma. Manual sheath removed. Skin: No rashes, No breakdown Musculoskeletal: No Tenderness to Palpation of Joints or Extremities Neurological: Cranial nerves II-XII grossly intact Psych/Mental Status: Normal Affect, Appropriate Vital Signs Temp Pulse Resp BP Pulse Ox 97.7 F L 88 20 H 126/51 H 100 03/23/18 08:00 03/23/18 08:00 03/23/18 08:00 03/23/18 08:00 03/23/18 08:00 Oxygen Flow Rate (L/min) 2 Oxygen Delivery Method Room Air Weight: 179 lb Body Mass Index (BMI) 32.7 Finger Stick Blood Glucose 173 Intake and Output for Last 24 Hours Intake Total 776.7 / 776.7 1360 / 1360 360 / 360 Output Total 950 / 950 0 / 0 Balance 776.7 / 776.7 410 / 410 360 / 360 Laboratory Tests Past 24 Hrs WBC 6.0 RBC 3.52 L Hgb 11.0 L Hct 33.5 L POC Glucose POC Glucose 92 94 119 H POC Glucose 105 68 L Discharge Activity: Return to Normal Activity, May not drive while taking narcotic pain medications. Call your doctor if you observe: Fever of 101 or Higher, Inability to urinate, Shortness of breath, Fainting spells, Swelling in the ankles, Chest pain Home Medications: Medications to take at Discharge Metformin HCl [Glucophage] 500 mg PO BIDCM 02/22/13 Gabapentin 600 mg PO BID 02/23/13 Glimepiride [Amaryl] 2 mg PO DAILY 02/23/13 Hydroxychloroquine [Plaquenil] 200 mg PO BIDCM 02/23/13 Omeprazole [Prilosec] 20 mg PO DAILY 02/23/13 Dicyclomine HCl [Bentyl] 20 mg PO TIDAC PRN #16 cap 12/25/15 Aspirin [Aspirin, Baby] 81 mg PO DAILY@0800 02/26/17 Cholecalciferol (Vitamin D3) [Vitamin D3] 2,000 unit PO DAILY 02/26/17 Losartan Potassium [Cozaar] 25 mg PO DAILY 02/26/17 fluticasone 50 mcg/actuation nasal spray,suspension 1 spray INTRANASAL BID #16 g 06/23/17 triamcinolone acetonide 0.025 % topical ointment 1 applic TOPICAL QDAY #80 g 09/10/17 ketotifen 0.025 % (0.035 %) eye drops 1 drp OPHTHALMIC BID PRN #5 ml 09/14/17 divalproex ER 250 mg tablet,extended release 24 hr 1,000 mg PO QHS #120 tab 03/17/18 Atorvastatin Calcium [Lipitor] 80 mg PO QHS #30 tablet 03/23/18 Carvedilol [Coreg (Beta Arnold)] 3.125 mg PO BID #60 tablet 03/23/18 Clopidogrel Bisulfate [Plavix] 75 mg PO DAILY #30 tablet 03/23/18 Cyclobenzaprine HCl 10 mg PO TID PRN PRN #30 tab 03/23/18 Cyclobenzaprine [Flexeril] 10 mg PO TID PRN PRN tablet 03/23/18 Following Prescrptions Were Given to Patient: Atorvastatin Calcium [Lipitor] 80 mg PO QHS #30 tablet Clopidogrel Bisulfate [Plavix] 75 mg PO DAILY #30 tablet Carvedilol [Coreg (Beta Arnold)] 3.125 mg PO BID #60 tablet Primary Care Physician: Mayda Garcia MD [Primary Care Provider] - Please follow up with your Primary Care Physician in: in 2 weeks Please Follow Up With: Winston Koch MD When: in 2 weeks Medical Necessity - Tobacco Use Smoking Status: Never smoker Meaningful Use Info Meaningful Use Diagnoses (Choose all that apply): None applicable Code Visit Inpatient E AND M: 07691 Disch Hosp 03/23/18 1631 <Electronically signed by Dennys Lovett MD> Date Dennys Lovett MD Cosigner Signature (if applicable): Date CC: Mayda Garcia MD; Dennys Lovett MD Signed DISCHARGE INSTRUCTION Observed: 03/23/2018 Status: F Source: [place] 8:14 AM [facility] REPOSITORY [facility] Medical Records Department [address] [place] [address] Instructions for Home/Discharge Instructions 03/23/18 0813 MR#: [id number] Acct: [id number] Name: LACY ALVARADO Rep #: [id number] : 1950 67 From: Dennys Lovett MD PCP: Mayda Garcia MD Status: ADM IN - Discharge Diagnoses Current Active Problems: Current Active and Chronic Problems (Last Updated 03/22/18 @ 18:14 by Lily Valles) Chest pain (Acute) You will use the following diet at home:: Calorie/Carbohydrate Controlled (specify 1200, 1400, etc) - 1800 ADA diet, Cardiac Your food should be the consistency of: Regular Discharge Activity: Return to Normal Activity, May not drive while taking narcotic pain medications. Call your doctor if you observe: Fever of 101 or Higher, Inability to urinate, Shortness of breath, Fainting spells, Swelling in the ankles, Chest pain Allergies/Adverse Reactions: Allergies prednisone Adverse Reaction (Verified 03/20/18 18:38) Nausea Medications to take at Discharge Metformin HCl [Glucophage] 500 mg PO BIDCM 02/22/13 Gabapentin 600 mg PO BID 02/23/13 Glimepiride [Amaryl] 2 mg PO DAILY 02/23/13 Hydroxychloroquine [Plaquenil] 200 mg PO BIDCM 02/23/13 Omeprazole [Prilosec] 20 mg PO DAILY 02/23/13 Dicyclomine HCl [Bentyl] 20 mg PO TIDAC PRN #16 cap 12/25/15 Aspirin [Aspirin, Baby] 81 mg PO DAILY@0800 02/26/17 Cholecalciferol (Vitamin D3) [Vitamin D3] 2,000 unit PO DAILY 02/26/17 Losartan Potassium [Cozaar] 25 mg PO DAILY 02/26/17 fluticasone 50 mcg/actuation nasal spray,suspension 1 spray INTRANASAL BID #16 g 06/23/17 triamcinolone acetonide 0.025 % topical ointment 1 applic TOPICAL QDAY #80 g 09/10/17 ketotifen 0.025 % (0.035 %) eye drops 1 drp OPHTHALMIC BID PRN #5 ml 09/14/17 divalproex ER 250 mg tablet,extended release 24 hr 1,000 mg PO QHS #120 tab 03/17/18 Atorvastatin Calcium [Lipitor] 80 mg PO QHS #30 tablet 03/23/18 Carvedilol [Coreg (Beta Arnold)] 3.125 mg PO BID #60 tablet 03/23/18 Clopidogrel Bisulfate [Plavix] 75 mg PO DAILY #30 tablet 03/23/18 Cyclobenzaprine HCl 10 mg PO TID PRN PRN #30 tab 03/23/18 Cyclobenzaprine [Flexeril] 10 mg PO TID PRN PRN tablet 03/23/18 The following prescriptions were given: Atorvastatin Calcium [Lipitor] 80 mg PO QHS #30 tablet Clopidogrel Bisulfate [Plavix] 75 mg PO DAILY #30 tablet Carvedilol [Coreg (Beta Arnold)] 3.125 mg PO BID #60 tablet Primary Care Physician: Mayda Garcia MD [Primary Care Provider] - Please follow up with your Primary Care Physician in: in 2 weeks Test Results: Test results from this visit will be discussed in further detail at your follow-up appointment, if applicable. Please Follow Up With: Winston Koch MD When: in 2 weeks 03/23/18 0814 <Electronically signed by Dennys Lovett MD> Date Dennys Lovett MD CC: Daya Mobley MD; Mayda Garcia MD BEDSIDE GLUCOSE Collected: 03/23/2018 Status: F Source: [place] 7:57 AM [facility] REPOSITORY TYPE CODE TESTS RESULT OUT OF RANGE REFERENCE UNITS LAB L501.080 70-110 mg/dL Normal BEDSIDE GLU 92 Result Comment: MANAGEMENT OF PATIENT CARE PER NURSING PROTOCOL Performed By: #### L501.080 #### [facility] Laboratory Point of Care [address] [place], [place] [id number] BEDSIDE GLUCOSE Collected: 03/23/2018 Status: F Source: [place] 6:46 AM [facility] REPOSITORY TYPE CODE TESTS RESULT OUT OF RANGE REFERENCE UNITS LAB L501.080 70-110 mg/dL Normal BEDSIDE GLU 94 Result Comment: MANAGEMENT OF PATIENT CARE PER NURSING PROTOCOL Performed By: #### L501.080 #### [facility] Laboratory Point of Care [address] [place] [address] CBC-COMPLETE BLOOD CNT Collected: 03/23/2018 Status: F Source: [place] NO DIFF 4:08 AM [facility] REPOSITORY TYPE CODE TESTS RESULT OUT OF RANGE REFERENCE UNITS LAB L100.1000 4.4-11.0 K/mm3 Normal WBC 6.0 LAB L100.1200 4.2-5.4 M/mm3 Low RBC 3.52 LAB L100.1300 12.0-15.0 g/dl Low HGB 11.0 LAB L100.1400 37-47 % Low HCT 33.5 LAB L100.1500 81-99 fL Normal MCV 95.2 LAB L100.1600 27.0-32.0 pg Normal MCH 31.3 LAB L100.1700 32-36 g/gl Normal MCHC 32.8 LAB L100.1810 11.6-14.6 % Normal RDW CV 12.9 LAB L100.1820 35.1-43.9 fl Normal RDW SD 43.2 LAB L100.1900 150-450 K/mm3 Normal PLT 208 LAB L100.2000 6.2-12.0 fl Normal MPV 10.3 Performed By: #### L100.0500 #### [facility] [address] [place], [address] BASIC METABOLIC Collected: 03/23/2018 Status: F Source: [place] PROFILE (BMP) 4:08 AM [facility] REPOSITORY TYPE CODE TESTS RESULT OUT OF RANGE REFERENCE UNITS LAB L501.0100 74-106 mg/dL Normal GLU 86 Result Comment: Please note revised GLUCOSE reference range effective 2017. LAB L501.1000 7-18 mg/dL Normal BUN 14 LAB L501.1100 0.55-1.02 mg/dL Normal CREAT,SERUM 0.84 Result Comment: The validity of the calculated GFR AND GFRAA in patients over 70 years has not been determined. Clinical correlation is essential. LAB L501.1110 >60 mL/min Normal EST GFR 72 Result Comment: Non- GFR Calc LAB L501.1115 >60 mL/min Normal EST GFR - AA 87 Result Comment: GFR Calc LAB L501.1255 ml/min Normal Estimated CRCL 52.81 LAB L501.1300 10-20 RATIO Normal BUN/CRE 16.7 LAB L501.2200 8.5-10 mg/dL Low .1 CA 8.3 LAB L501.5300 136-14 mmol/L High 5 NA 146 LAB L501.5600 3.5-5. mmol/L Normal 1 K 4.0 LAB L501.5900 98-107 mmol/L High CL 109 LAB L501.6100 21.0-3 mmol/L Normal 2.0 CO2 27.0 LAB L501.6200 5-15 Normal GAP 10 Performed By: #### L500.2500 #### [facility] [address] [place], [address] BEDSIDE GLUCOSE Collected: 03/22/2018 Status: F Source: [place] 9:34 PM [facility] REPOSITORY TYPE CODE TESTS RESULT OUT OF REFERENCE UNITS RANGE LAB L501.080 70-110 mg/dL High BEDSIDE GLU 119 Result Comment: MANAGEMENT OF PATIENT CARE PER NURSING PROTOCOL Performed By: #### L501.080 #### [facility] Point of Care [address] [place] [address] BEDSIDE GLUCOSE Collected: 03/22/2018 Status: F Source: [place] 4:55 PM [facility] REPOSITORY TYPE CODE TESTS RESULT OUT OF RANGE REFERENCE UNITS LAB L501.080 70-110 mg/dL Normal BEDSIDE GLU 105 Result Comment: MANAGEMENT OF PATIENT CARE PER NURSING PROTOCOL Performed By: #### L501.080 #### [facility] Point of Care [address] [place] [address] BEDSIDE GLUCOSE Collected: 03/22/2018 Status: F Source: [place] 1:32 PM [facility] REPOSITORY TYPE CODE TESTS RESULT OUT OF REFERENCE UNITS RANGE LAB L501.080 70-110 mg/dL Low BEDSIDE GLU 68 Result Comment: MANAGEMENT OF PATIENT CARE PER NURSING PROTOCOL Performed By: #### L501.080 #### [facility] Laboratory Point of Care [address] [place] [address] ACT ACTIVATED CLOTTING Collected: 03/22/2018 Status: F Source: [place] TIME 11:00 AM [facility] REPOSITORY TYPE CODE TESTS RESULT OUT OF RANGE REFERENCE UNITS LAB L9100.0100 74-137 sec High ACTk CLOT 147 TIME Performed By: #### L9100.0100 #### [facility] Point of Care [address] [place] [address] ACT ACTIVATED CLOTTING Collected: 03/22/2018 Status: F Source: [place] TIME 8:54 AM [facility] REPOSITORY TYPE CODE TESTS RESULT OUT OF RANGE REFERENCE UNITS LAB L9100.0100 74-137 sec High ACTk CLOT 208 TIME Performed By: #### L9100.0100 #### [facility] Point of Care [address] [place] [address] BEDSIDE GLUCOSE Collected: 03/22/2018 Status: F Source: [place] 6:56 AM [facility] REPOSITORY TYPE CODE TESTS RESULT OUT OF REFERENCE UNITS RANGE LAB L501.080 70-110 mg/dL High BEDSIDE GLU 141 Result Comment: MANAGEMENT OF PATIENT CARE PER NURSING PROTOCOL Performed By: #### L501.080 #### [facility] Point of Care [address] [place] [address] CBC W/DIFF, AUTOMATED Collected: 03/22/2018 Status: F Source: [place] 5:58 AM [facility] REPOSITORY TYPE CODE TESTS RESULT OUT OF RANGE REFERENCE UNITS LAB L100.1000 4.4-11.0 K/mm3 Normal WBC 5.0 LAB L100.1200 4.2-5.4 M/mm3 Low RBC 3.50 LAB L100.1300 12.0-15.0 g/dl Low HGB 10.8 LAB L100.1400 37-47 % Low HCT 33.1 LAB L100.1500 81-99 fL Normal MCV 94.6 LAB L100.1600 27.0-32.0 pg Normal MCH 30.9 LAB L100.1700 32-36 g/gl Normal MCHC 32.6 LAB L100.1810 11.6-14.6 % Normal RDW CV 12.7 LAB L100.1820 35.1-43.9 fl Normal RDW SD 42.6 LAB L100.1900 150-450 K/mm3 Normal PLT 208 LAB L100.2000 6.2-12.0 fl Normal MPV 10.6 LAB L100.2100 47-70 % Normal NEUT% 58.0 LAB L100.2200 19-41 % Normal LY% 32.7 LAB L100.2300 0-10 % Normal MONO% 7.1 LAB L100.2400 0-5 % Normal EO% 2.0 LAB L100.2500 0-1 % Normal BASO% 0.2 LAB L100.2550 0.0-0.9 % Normal IM GRAN % 0.000 Result Comment: IG% - Immature Granulocytes (promyelocytes, myelocytes and metamyelocytes) > 1% indicates that a LEFT SHIFT is Present. LAB L100.2620 2.0-7.7 X10 3/uL Normal Absolute Neut 2.9 LAB L100.2720 0.83-4.51 X10 3/ul Normal Absolute Lymph 1.62 Performed By: #### L100.0100 #### [facility] [address] [place], [address] BASIC METABOLIC Collected: 03/22/2018 Status: F Source: [place] PROFILE ([facility]) 5:58 AM [facility] REPOSITORY TYPE CODE TESTS RESULT OUT OF RANGE REFERENCE UNITS LAB L501.0100 74-106 mg/dL High GLU 126 Result Comment: Fasting Glucose result greater than or equal to 126 mg/dL suggests DIABETES MELLITUS per A.D.A. criteria. Please note revised GLUCOSE reference range effective 2017. LAB L501.1000 7-18 mg/dL Normal BUN 15 LAB L501.1100 0.55-1.02 mg/dL Normal CREAT,SERUM 0.89 Result Comment: The validity of the calculated GFR AND GFRAA in patients over 70 years has not been determined. Clinical correlation is essential. LAB L501.1110 >60 mL/min Normal EST GFR 68 Result Comment: Non- GFR Calc LAB L501.1115 >60 mL/min Normal EST GFR - AA 82 Result Comment: GFR Calc LAB L501.1255 ml/min Normal Estimated CRCL 49.84 LAB L501.1300 10-20 RATIO Normal BUN/CRE 16.9 LAB L501.2200 8.5-10 mg/dL Low .1 CA 8.2 LAB L501.5300 136-14 mmol/L Normal 5 NA 143 LAB L501.5600 3.5-5. mmol/L Normal 1 K 4.2 LAB L501.5900 98-107 mmol/L High CL 108 LAB L501.6100 21.0-3 mmol/L Normal 2.0 CO2 26.0 LAB L501.6200 5-15 Normal GAP 9 Performed By: #### L500.2500 #### [facility] [address] [place], [address] PROTHROMBIN TIME W/INR Collected: 03/22/2018 Status: F Source: [place] 5:58 AM [facility] REPOSITORY TYPE CODE TESTS RESULT OUT OF RANGE REFERENCE UNITS LAB L300.4150 11.7-14.9 SECONDS Normal PROTIME 14.1 LAB L300.4200 Normal INR 1.1 Performed By: #### L300.3900, L300.4310 #### [facility] [address] [place], [address] PARTIAL THROMBOPLAST Collected: 03/22/2018 Status: F Source: [place] TIME 5:58 AM [facility] REPOSITORY TYPE CODE TESTS RESULT OUT OF RANGE REFERENCE UNITS LAB L300.4310 24.1-36.2 Seconds Normal PTT 34.1 Performed By: #### L300.3900, L300.4310 #### [facility] [address] [place], [address] BEDSIDE GLUCOSE Collected: 03/21/2018 Status: F Source: [place] 9:03 PM [facility] REPOSITORY TYPE CODE TESTS RESULT OUT OF REFERENCE UNITS RANGE LAB L501.080 70-110 mg/dL High BEDSIDE GLU 147 Result Comment: MANAGEMENT OF PATIENT CARE PER NURSING PROTOCOL Performed By: #### L501.080 #### [facility] Point of Care [address] [place] [address] BEDSIDE GLUCOSE Collected: 03/21/2018 Status: F Source: [place] 4:01 PM [facility] REPOSITORY TYPE CODE TESTS RESULT OUT OF REFERENCE UNITS RANGE LAB L501.080 70-110 mg/dL High BEDSIDE GLU 173 Result Comment: MANAGEMENT OF PATIENT CARE PER NURSING PROTOCOL Performed By: #### L501.080 #### [facility] Point of Care [address] [place] [address] CONSULTATION Observed: 03/21/2018 Status: F Source: [place] 12:47 PM [facility] REPOSITORY [facility] Medical Records Department [address] [place] [address] Consultation 03/21/18 1239 MR#: [id number] Acct: [id number] Name: LACY ALVARADO Rep #: [id number] : 1950 67 From: Daya Mobley MD PCP: Mayda Garcia MD Status: ADM DELFIN Y Location: [place] [address] Problem List (1) Chest pain Status: Acute Reason for Consult Date of Consultation: 03/21/18 History of Present Illness: The patient is a 67 year old F with past medical history significant for hypertension, diabetes mellitus, seizure disorder, rheumatoid arthritis and diastolic dysfunction. According to her, for the past couple of days, she has been having anterior chest pressure. There is some radiation to the left arm. No associated nausea or vomiting. No diaphoresis. No shortness of breath. According to the patient, the discomfort is mostly constant but is worsened with exertion. She is unable to identify any relieving factors. This morning, the patient says that she is having minimal discomfort. [] Past Medical History Allergies/Adverse Reactions: Allergies prednisone Adverse Reaction (Verified 03/20/18 18:38) Nausea Home Medications: Ambulatory Orders Medication Instructions Recorded Metformin HCl [Glucophage] 500 mg PO BIDCM 02/22/13 Gabapentin 600 mg PO BID 02/23/13 Past Medical History (Chronic Problems): Chronic Problems (Last Reviewed 03/20/18 @ 21:48 by Parker Meléndez MD) Heel spur (Chronic) Type 2 diabetes mellitus (Chronic) Obesity (Chronic) Vitamin D deficiency (Chronic) Hypertension (Chronic) Seizure disorder (Chronic) Diabetes mellitus (Chronic) type 2 Conversion disorder (Chronic) Cerebrovascular disease (Chronic) 45% L ICA stenosis Rheumatoid arthritis (Chronic) Hx of chronic inflammatory arthritis (Chronic) Chronic diastolic CHF (congestive heart failure) (Chronic) Hyperlipidemia (Chronic) Obstructive sleep apnea (Chronic) Surgical History: hysterectomy Psychiatric History: No pertinent psych hx - *Family History Maternal Family History: Family History (Last Reviewed 03/21/18 @ 01:23 by Parker Meléndez MD) Grandmother Alcoholism Cancer Arthritis Mother Alcoholism Diabetes blood clots Hypertension Grandfather Heart disease Sister Thyroid disorder Other Breast cancer Cervical cancer Colon cancer History Items: Diabetes - age 60 Paternal Family History: Family History (Last Reviewed 03/21/18 @ 01:23 by Parker Meléndez MD) Grandmother Alcoholism Cancer Arthritis Mother Alcoholism Diabetes blood clots Hypertension Grandfather Heart disease Sister Thyroid disorder Other Breast cancer Cervical cancer Colon cancer History Items: Unknown Smoking Status: Never smoker Review of Systems - Review of Systems General: Denies: Fever, Chills HEENT: Reports: Head Aches Cardiovascular: Reports: Chest Discomfort at Rest, Chest Discomfort with Exertion. Denies: Orthopnea, Peripheral Edema, Palpitations Gastrointestinal: Denies: Abdominal Discomfort, Nausea, Emesis, Hematemesis Muscoloskeletal: Reports: - - History of rheumatoid arthritis Neurological: Denies: History of TIA, History of CVA Hematologic/ Lymphatic: Denies: Easy Brusing, Easy Bleeding Subjectve: Comfortable. No apparent distress. Sitting up in the chair Objective: Vital Signs Temp Pulse Resp BP Pulse Ox 98.0 F 86 19 H 117/74 98 03/21/18 10:00 03/21/18 12:07 03/21/18 12:07 03/21/18 12:07 03/21/18 12:07 Oxygen Flow Rate (L/min) 2 Oxygen Delivery Method Room Air Weight: 81.2 kg Body Mass Index (BMI) 32.7 Finger Stick Blood Glucose 173 Intake and Output for Last 24 Hours Intake Total 56.7 / 56.7 Balance 56.7 / 56.7 General: Awake, Alert, Oriented x 3 HEENT: Atraumatic, Normocephalic Oral: Moist Mucosa Neck: Supple, No JVD Lungs: Clear to auscultation Cardiovascular: Regular Rhythm, Normal S1, Normal S2 Abdomen: Bowel Sounds Present, Soft Extremities: No edema Neurological: No Focal Motor or Sensory Deficit Psych/Mental Status: Appropriate 03/20/18 18:43: WBC 5.5, RBC 3.99 L, Hgb 12.3, Hct 37.8, MCV 94.7, MCH 30.8, MCHC 32.5, RDW 13.0, RDW Differential 45.1 H, Plt Count 228, MPV 10.1, Immature Gran % (Auto) 0.200, Neut % (Auto) 46.2 L, Lymph % (Auto) 45.7 H, Pershing % (Auto) 5.1, Eos % (Auto) 2.6, Baso % (Auto) 0.2, Absolute Neuts (auto) 2.5, Total Counted Not Reportable 03/20/18 18:43: PT 12.7, INR 1.0, APTT 28.4, D-Dimer Quant (PE/DVT) 0.47 03/20/18 18:43: Sodium 145, Potassium 4.0, Chloride 108 H, Carbon Dioxide 28.0, Anion Gap 9, BUN 19 H, Creatinine 0.86, Est GFR (MDRD) Af Amer 85, Est GFR (MDRD) Non-Af 70, BUN/Creatinine Ratio 22.0 H, Glucose 102, Calcium 8.8, Troponin I < 0.015 03/20/18 22:12: Troponin I < 0.015 03/21/18 00:14: Urine Color Yellow, Urine Clarity Clear, Urine pH 7.0, Ur Specific [place] 1.010, Urine Protein 15 H, Urine Glucose (UA) Normal, Urine Ketones Negative, Urine Occult Blood 10 H, Urine Nitrite Negative, Urine Bilirubin Negative, Urine Urobilinogen Normal, Ur Leukocyte Esterase 500 H 03/21/18 00:37: Troponin I < 0.015 03/21/18 06:07: Sodium 145, Potassium 3.7, Chloride 109 H, Carbon Dioxide 26.0, Anion Gap 10, BUN 15, Creatinine 0.73, Est GFR (MDRD) Af Amer 103, Est GFR (MDRD) Non-Af 85, BUN/Creatinine Ratio 20.5 H, Glucose 116 H, Calcium 8.0 L, Triglycerides 116, Cholesterol 168, LDL Cholesterol 106, VLDL Cholesterol 23, HDL Cholesterol 39 L 03/21/18 06:07: WBC 4.7, RBC 3.40 L, Hgb 10.6 L, Hct 32.6 L, MCV 95.9, MCH 31.2, MCHC 32.5, RDW 12.7, RDW Differential 42.6, Plt Count 199, MPV 10.5, Immature Gran % (Auto) 0.200, Neut % (Auto) 42.7 L, Lymph % (Auto) 47.5 H, Pershing % (Auto) 6.2, Eos % (Auto) 3.2, Baso % (Auto) 0.2, Absolute Neuts (auto) 2.0, Total Counted Not Reportable 03/21/18 06:07: PT 14.5, INR 1.1, APTT 37.6 H Rhythm: Normal sinus rhythm EKG: Normal sinus rhythm. No ischemic changes ECHO: Stress Test: Cardiac Cath: PCI: CT Surgery: Holter monitor: EPS: PPM: CXR: Chest CT Scan: Assessment/Plan 1. Anterior chest pressure radiating to the left arm. Exacerbated with exertion. Consider unstable angina. I recommended patient undergo cardiac catheterization with coronary angiography and possible revascularization. Risks benefits were explained. Alternatives explained. She understands these and wishes to proceed. I offered her the procedure today however she likes to have it done in the morning. I counseled her that if her chest pain recurs or gets worse, then we may need to do it urgently. She understands. Continue carvedilol. Load with clopidogrel. DC nitroglycerin infusion. Start on Nitropaste X 2. History of hypertension 3. History of diastolic dysfunction/CHF per patient. Check 2D echocardiogram Doppler 4. With management as per internal medicine. 5. History of rheumatoid arthritis 6. History of seizure disorder 03/21/18 1247 <Electronically signed by Daya Mobley MD> Date Daya Mobley MD Cosigner Signature (if applicable): Date CC: Daya Mobley MD; Mayda Garcia MD Signed BEDSIDE GLUCOSE Collected: 03/21/2018 Status: F Source: [place]DE[place] 11:51 AM [facility] REPOSITORY TYPE CODE TESTS RESULT OUT OF REFERENCE UNITS RANGE LAB L501.080 70-110 mg/dL High BEDSIDE GLU 118 Result Comment: MANAGEMENT OF PATIENT CARE PER NURSING PROTOCOL Performed By: #### L501.080 #### [facility] Point of Care [address] [place] [address] PROTHROMBIN TIME W/INR Collected: 03/21/2018 Status: F Source: SANDEE 6:07 AM [facility] REPOSITORY TYPE CODE TESTS RESULT OUT OF RANGE REFERENCE UNITS LAB L300.4150 11.7-14.9 SECONDS Normal PROTIME 14.5 LAB L300.4200 Normal INR 1.1 Performed By: #### L300.3900, L300.4310 #### [facility] [address] [place], [place], [address] PARTIAL THROMBOPLAST Collected: 03/21/2018 Status: F Source: [place] TIME 6:07 AM [facility] REPOSITORY TYPE CODE TESTS RESULT OUT OF REFERENCE UNITS RANGE LAB L300.4310 24.1-36.2 Seconds High PTT 37.6 Performed By: #### L300.3900, L300.4310 #### [facility] [address] [place], [place], [address] CBC W/DIFF, AUTOMATED Collected: 03/21/2018 Status: F Source: [place] 6:07 AM [facility] REPOSITORY TYPE CODE TESTS RESULT OUT OF RANGE REFERENCE UNITS LAB L100.1000 4.4-11.0 K/mm3 Normal WBC 4.7 LAB L100.1200 4.2-5.4 M/mm3 Low RBC 3.40 LAB L100.1300 12.0-15.0 g/dl Low HGB 10.6 LAB L100.1400 37-47 % Low HCT 32.6 LAB L100.1500 81-99 fL Normal MCV 95.9 LAB L100.1600 27.0-32.0 pg Normal MCH 31.2 LAB L100.1700 32-36 g/gl Normal MCHC 32.5 LAB L100.1810 11.6-14.6 % Normal RDW CV 12.7 LAB L100.1820 35.1-43.9 fl Normal RDW SD 42.6 LAB L100.1900 150-450 K/mm3 Normal PLT 199 LAB L100.2000 6.2-12.0 fl Normal MPV 10.5 LAB L100.2100 47-70 % Low NEUT% 42.7 LAB L100.2200 19-41 % High LY% 47.5 LAB L100.2300 0-10 % Normal MONO% 6.2 LAB L100.2400 0-5 % Normal EO% 3.2 LAB L100.2500 0-1 % Normal BASO% 0.2 LAB L100.2550 0.0-0.9 % Normal IM GRAN % 0.200 Result Comment: IG% - Immature Granulocytes (promyelocytes, myelocytes and metamyelocytes) > 1% indicates that a LEFT SHIFT is Present. LAB L100.2620 2.0-7.7 X10 3/uL Normal Absolute Neut 2.0 LAB L100.2720 0.83-4.51 X10 3/ul Normal Absolute Lymph 2.23 Performed By: #### L100.0100 #### [facility] [address] [place], [place], [address] BASIC METABOLIC Collected: 03/21/2018 Status: F Source: [place] PROFILE (BMP) 6:07 AM [facility] REPOSITORY TYPE CODE TESTS RESULT OUT OF RANGE REFERENCE UNITS LAB L501.0100 74-106 mg/dL High GLU 116 Result Comment: Fasting Glucose result from 100 to 125 mg/dL suggests IMPAIRED HOMEOSTASIS per A.D.A. criteria. Please note revised GLUCOSE reference range effective 2017. LAB L501.1000 7-18 mg/dL Normal BUN 15 LAB L501.1100 0.55-1.02 mg/dL Normal CREAT,SERUM 0.73 Result Comment: The validity of the calculated GFR AND GFRAA in patients over 70 years has not been determined. Clinical correlation is essential. LAB L501.1110 >60 mL/min Normal EST GFR 85 Result Comment: Non- GFR Calc LAB L501.1115 >60 mL/min Normal EST GFR - AA 103 Result Comment: GFR Calc LAB L501.1255 ml/min Normal Estimated CRCL 60.77 LAB L501.1300 10-20 RATIO High BUN/CRE 20.5 LAB L501.2200 8.5-10 mg/dL Low .1 CA 8.0 LAB L501.5300 136-14 mmol/L Normal 5 NA 145 LAB L501.5600 3.5-5. mmol/L Normal 1 K 3.7 LAB L501.5900 98-107 mmol/L High CL 109 LAB L501.6100 21.0-3 mmol/L Normal 2.0 CO2 26.0 LAB L501.6200 5-15 Normal GAP 10 Performed By: #### L500.2500, L500.4100 #### [facility] [address], [address] LIPID PROFILE Collected: 03/21/2018 Status: F Source: [place] 6:07 AM [facility] REPOSITORY TYPE CODE TESTS RESULT OUT OF RANGE REFERENCE UNITS LAB L501.4900 200 mg/dL Normal CHOL 168 Result Comment: <200 mg/dL Desirable 200-240 mg/dL Borderline >240 mg/dL High Risk LAB L501.5000 mg/dL Normal TRIG 116 Result Comment: The drugs N-Acetylcysteine and Metamizole may falsely depress this assay. Serum Triglycerides Reference Interval Normal <150 mg/dL Borderline high 150 - 199 mg/dL High 200 - 499 mg/dL Very High > or = 500 mg/dL LAB L501.6400 mg/dL Low HDL 39 Result Comment: The drugs N-Acetylcysteine and Metamizole may falsely depress this assay. Reference Range HDL <40 mg/dL Low HDL Cholesterol HDL >or= 60 mg/dL High HDL Cholesterol LAB L501.6500 0-130 mg/dL Normal LDL 106 LAB L501.6600 5-40 mg/dL Normal VLDL 23 Performed By: #### L500.2500, L500.4100 #### [facility] [address] [place], [address] BEDSIDE GLUCOSE Collected: 03/21/2018 Status: F Source: [place] 6:01 AM [facility] REPOSITORY TYPE CODE TESTS RESULT OUT OF REFERENCE UNITS RANGE LAB L501.080 70-110 mg/dL High BEDSIDE GLU 128 Result Comment: MANAGEMENT OF PATIENT CARE PER NURSING PROTOCOL Performed By: #### L501.080 #### [facility] Point of Care [address] [address] HISTORY AND PHYSICAL Observed: 03/21/2018 Status: F Source: [place] EXAM 1:44 AM [facility] REPOSITORY [facility] Medical Records Department [address] [facility] [place] [address] History and Physical 03/20/182109 MR#: [id number] Acct: [id number] Name: LACY ALVARADO Rep #: [id number] : 1950 67 From: Parker Meléndez MD PCP: Mayda Garcia MD Status: ADM DELFIN Y [id number] Problem List (1) Chest pain Status: Acute History of Present Illness Date of Admission: 03/20/18 Chief Complaint: chest Pain The patient is a 67 year old F with a significant history of hypertension, diabetes, seizure disorder, stage I diastolic dysfunction who presented with a 2 days history of progressively worsening episodic substernal squeezing chest pain that radiated to her left arm. She reports numbness of her left arm. Associated with her symptoms is diaphoresis; headache; cough and shortness of breath. Patient denies any aggravating factor. At emergency department patient was started on nitroglycerin drip. Patient reports improvement of chest pain with nitroglycerin drip. On the same day of admission she had some nausea and loose bowel movements x 3 times. Past Medical History Past Medical History (Chronic Problems): Chronic Problems (Last Reviewed 03/20/18 @ 21:48 by Parker Meléndez MD) Heel spur (Chronic) Type 2 diabetes mellitus (Chronic) Obesity (Chronic) Vitamin D deficiency (Chronic) Hypertension (Chronic) Seizure disorder (Chronic) Diabetes mellitus (Chronic) type 2 Conversion disorder (Chronic) Cerebrovascular disease (Chronic) 45% L ICA stenosis Rheumatoid arthritis (Chronic) Hx of chronic inflammatory arthritis (Chronic) Chronic diastolic CHF (congestive heart failure) (Chronic) Hyperlipidemia (Chronic) Obstructive sleep apnea (Chronic) Medical History: Medical History (Last Reviewed 03/20/18 @ 21:48 by Parker Meléndez MD) Arthritis M19.90 Diabetes type 2, controlled E11.9 H/O: hysterectomy Z98.890, Z90.710 Heart disease I51.9 High cholesterol E78.00 Hives L50.9 Rheumatoid arthritis M06.9 Seasonal allergies J30.2 Seizures R56.9 HTN (hypertension) I10 Allergies prednisone Adverse Reaction (Verified 03/20/18 18:38) Nausea Home Medications: Ambulatory Orders Medication Instructions Recorded Metformin HCl [Glucophage] 500 mg PO BIDCM 02/22/13 Gabapentin 600 mg PO BID 02/23/13 Surgical History: Surgical History (Last Reviewed 03/20/18 @ 21:48 by Parker Meléndez MD) History of carpal tunnel surgery Z92.89 History of section Z98.891 Surgical History: hysterectomy Psychiatric History: No pertinent psych hx Smoking Status: Never smoker - *Family History Maternal Family History: Family History (Last Reviewed 03/21/18 @ 01:23 by Parker Meléndez MD) Grandmother Alcoholism Cancer Arthritis Mother Alcoholism Diabetes blood clots Hypertension Grandfather Heart disease Sister Thyroid disorder Other Breast cancer Cervical cancer Colon cancer History Items: Diabetes - age 60 Paternal Family History: Family History (Last Reviewed 03/21/18 @ 01:23 by Parker Meléndez MD) Grandmother Alcoholism Cancer Arthritis Mother Alcoholism Diabetes blood clots Hypertension Grandfather Heart disease Sister Thyroid disorder Other Breast cancer Cervical cancer Colon cancer History Items: Unknown Review of Systems Constitutional: Denies: Chills, Fever, Weight Change HEENT: Reports: Head Aches. Denies: Sinus Congestion, Sinus Drainage Cardiovascular: Reports: Chest Pain. Denies: Palpitations Respiratory: Reports: Cough, Shortness of Breath Gastrointestinal: Reports: Diarrhea, Nausea. Denies: Abdominal Pain, Vomiting Genitourinary: Denies: Dysuria Musculoskeletal: Denies: Joint Pain, Joint Tenderness Skin: Denies: Rash, Wounds Neurological: Reports: Numbness - left arm. Denies: Focal weakness, Tingling Psychiatric: Denies: Anxiety, Depression, Homicidal Ideations, Suicidal Ideations Hematologic/ Lymphatic: Denies: Easy Bruising, Easy Bleeding VTE Information - Inpt Only VTE Present on Admission: No VTE Mechan Device Prophylaxis: None VTE Pharm Prophylaxis ordered?: No Reason prophylaxis not ordered:: Treatment Not Indicated - Started on therapy Lovenox for chest pain. Patient Problems: Active and Suspected Problems (Last Reviewed 03/20/18 @ 21:48 by Parker Meléndez MD) Chest pain (Acute) - Physical Exam General: Alert, Oriented x3, Cooperative HEENT: Atraumatic, PERRLA, EOMI, Normocephalic Neck: Supple, No JVD, Negative Carotid Bruits Lungs: Clear to auscultation, Normal air movement Cardiovascular: No murmurs, Tachycardic Abdomen: Bowel Sounds Present, Soft, Non Tender Extremities: No edema, Capillary Refill Less than 3 Seconds Skin: No rashes, No breakdown Musculoskeletal: No Tenderness to Palpation of Joints or Extremities Neurological: Cranial nerves II-XII grossly intact Psych/Mental Status: Normal Affect, Appropriate Vital Signs Pulse Resp BP Pulse Ox 90 14 133/83 H 100 03/20/18 20:43 03/20/18 20:43 03/20/18 20:43 03/20/18 20:43 Oxygen Flow Rate (L/min) 2 Oxygen Delivery Method Nasal Cannula Weight: 81.828 kg Body Mass Index (BMI) 33.0 Finger Stick Blood Glucose 173 Laboratory Tests Past 24 Hrs WBC 5.5 RBC 3.99 L Assessment/Plan All Active Problems (Last Reviewed 03/20/18 @ 21:48 by Parker Meléndez MD) Chest pain (Acute) Dyspnea on exertion (Acute) Allergic conjunctivitis and rhinitis (Acute) Non-toxic multinodular goiter (Acute) The patient is a 67 year old F with a significant history of hypertension, rheumatoid arthritis; diabetes, seizure disorder, CHF who presented with a 2 days history of progressively worsening episodic substernal squeezing chest pain that radiates to her left arm consistent with likely unstable angina. Chest pain Heart Score 6 (History highly suspicious; normal; 3 risk factors (obesity; DM; and HTN) Admit to a monitored bed on PCU CXR independently reviewed confirms no acute cardiopulmonary process. EKG independently reviewed confirms sinus tachycardia. Review of old records showed that echocardiogram on 10/19/2017 depicted stage I diastolic dysfunction. On home dose aspirin 81 mg daily. Continue ASA 81 mg p.o. daily On home Lipitor 40 mg nightly. Increase to 80 mg nightly. On home verapamil. Verapamil held at this time. Started on low-dose beta-blockers; coreg Patient was started on nitroglycerin drip from the emergency department. Nitroglycerin drip continued. Received Lovenox therapeutic dose at emergency department. Lovenox repeat therapeutic dose dose ordered in a.m. Troponin at emergency department was negative. Serial cardiac enzymes ordered Stat EKG as needed for chest pain Cardiology consult for risk stratification and to optimize management. Gastroenteritis Likely viral Transient. Monitor Diabetes mellitus Blood glucose on admission was within goal. We will keep patient n.p.o. Discontinue home oral hypoglycemic medication (glimepiride and metformin) Correction scale insulin ordered. Hypertension Cozaar continued. Verapamil held because of likely coronary artery disease Coreg added for chest pain. Rheumatoid arthritis Plaquenil continued. Seizure disorder Continued Depakote Asymptomatic bacteriuria. No treatment at this time. DVT prophylaxis On therapeutic Lovenox for unstable angina. Code Visit OBSV E AND M: 23550 Initial observation care L3 03/21/18 0144 <Electronically signed by Parker Meléndez MD> Date Parker Meléndez MD Cosigner Signature: Date (if applicable) CC: Mayda Garcia MD; Parker Meléndez MD Signed TROPONIN-I Collected: 03/21/2018 Status: F Source: SANDEE 12:37 AM [facility] REPOSITORY Order Comment: 'TROP' Serial specimen #1, #2 or #3: 3 TYPE CODE TESTS RESULT OUT OF RANGE REFERENCE UNITS LAB L501.4010 <0.045 ng/mL Normal < 0.015 TROPONIN-I Result Comment: TROPONIN-I EXPECTED VALUES <0.045 Negative 0.045 - 0.590 Consistent with Cardiac Damage > OR = 0.600 Critical Value Not every elevated troponin is indicative of TX. These values should be used with clinical judgement in examining the patient's clinical picture for diagnosis. To establish a diagnosis of TX versus myocardial injury, there must be a demonstrated rise and/or fall in the troponin values, in addition to ischemic symptoms, EKG changes, new regional wall motion abnormality, and/or angiographical evidence. PLEASE NOTE: REFERENCE RANGES EDITED 17 Performed By: #### L501.4010 #### [facility] [address] [place], [address] URINALYSIS, ROUTINE Collected: 03/21/2018 Status: F Source: SANDEE (DIPSTICK) 12:14 AM [facility] REPOSITORY Order Comment: How was Urine Obtained? CLEAN CATCH TYPE CODE TESTS RESULT OUT OF RANGE REFERENCE UNITS LAB L400.3000 Yellow COLOR Normal Yellow LAB L400.3050 Clear Normal CLARITY Clear LAB L400.3200 Normal mg/dl Normal GLUCOSE, UR Normal LAB L400.3300 Negative mg/dL Normal BILIRUBIN URINE Negative LAB L400.3400 Negative mg/dl Normal KETONE UR Negative LAB L400.3465 1.002-1.030 Normal SP.GR. DIPSTX 1.010 LAB L400.3550 5.0 - 8.0 pH UR Normal 7.0 LAB L400.3600 Negative mg/dl High PROT 15 DIPSTX LAB L400.3700 Normal mg/dl Normal UROBILI Normal LAB L400.3750 Negative Normal NITRITE UR Negative LAB L400.3780 Negative /ul High 10 OCCULT BLOOD-UR LAB L400.3800 Negative /ul High LEUK ESTERASE 500 Performed By: #### L400.2010 #### [facility] [address] [place], [address] BEDSIDE GLUCOSE Collected: 03/20/2018 Status: F Source: [place] 10:56 PM [facility] REPOSITORY TYPE CODE TESTS RESULT OUT OF REFERENCE UNITS RANGE LAB L501.080 70-110 mg/dL High BEDSIDE GLU 116 Result Comment: MANAGEMENT OF PATIENT CARE PER NURSING PROTOCOL Performed By: #### L501.080 #### [facility] Point of Care [address] [place], [place] [address] TROPONIN-I Collected: 03/20/2018 Status: F Source: [place] 10:12 PM [facility] REPOSITORY Order Comment: 'TROP' Serial specimen #1, #2 or #3: 2 TYPE CODE TESTS RESULT OUT OF RANGE REFERENCE UNITS LAB L501.4010 <0.045 ng/mL Normal < 0.015 TROPONIN-I Result Comment: TROPONIN-I EXPECTED VALUES <0.045 Negative 0.045 - 0.590 Consistent with Cardiac Damage > OR = 0.600 Critical Value Not every elevated troponin is indicative of TX. These values should be used with clinical judgement in examining the patient's clinical picture for diagnosis. To establish a diagnosis of TX versus myocardial injury, there must be a demonstrated rise and/or fall in the troponin values, in addition to ischemic symptoms, EKG changes, new regional wall motion abnormality, and/or angiographical evidence. PLEASE NOTE: REFERENCE RANGES EDITED 17 Performed By: #### L501.4010 #### [facility] [address] [place], [address] EMERGENCY DEPARTMENT Observed: 03/20/2018 Status: F Source: [place] SUMMARY 9:19 PM [facility] REPOSITORY [facility] Medical Records Department [address] [place] [address] Emergency Department Summary 03/20/18 1847 MR#: [id number] Acct: [id number] Name: LACY ALVARADO Rep #: [id number] : 1950 67 From: Ulisses Alvarez PCP: Mayda Garcia MD Status: REG ER - ER Visit Summary Date of Service: 03/20/18 Chief Complaint: Chest pain History of Present Illness: The patient is a 67 F left-sided chest pain started 2 days ago. States went away this morning woke up at 8 5 AM with mild pain left chest with numbness left arm. States waxing waning progressed throughout the day currently at 10. Sharp in nature. Complains of dyspnea mild sweats. No nausea. Denies tobacco history. History hypertension, hypercholesteremia, diabetes. No recent travel, surgery, or immobilizations. No history of PE or DVT. States history of congestive heart failure however no TX history. Currently see a new short range air defense artillery. No aspirin taken at home. Physical Examination: General: Alert and oriented 3, no acute distress HEENT: Normocephalic, atraumatic. Moist mucosa membranes Neck: supple, nontender. Cardiovascular: Regular tachycardic rate and rhythm, no murmurs Respiratory: Normal breath sounds, symmetric, no distress Abdomen: Soft, nontender, nondistended Extremities: Nontender, no edema, pulses intact 4 Neuro: no focal neurological deficits. Test Results: EKG: Sinus rate of 121, no ST or T wave changes. White count 5.5 hemoglobin 12.3. Creatinine 0.8. Potassium 4.0. Troponin 0 0.015. D-dimer 0.47. Chest x-ray negative. Emergency Department Course and Treatment: Patient complaining of angina symptoms. Aspirin and nitro series given. Workup initiated. Initial workup negative. Her tachycardia d-dimer obtain normal levels. She is given gentle fluids heart rate did improve to the 80s. Reevaluation however states still had pressure pain 8 out of 10. She is placed on a nitro drip due to her symptoms. This significantly improved her symptoms. DONYA scores a 2. Heart scores of 4. I discussed with short range air defense artillery Dr. Mobley will add Lovenox. Will admit for cardiac rule out. Spoke with hospitalist Dr. Meléndez for admission to stepdown. Treatment Plan: [] Disposition: Admission Impression: 1. Acute chest pain 2. acute coronary syndrome This note was generated with AssertID dictation software. It may contain incorrect words, spelling, and punctuation that were not noted in review of the chart prior to signing ED Disposition - Plan for ED Patient: Disposition: Acute Care Hospital [facility] Chief Complaint: Chest Pain Diagnosis: Chest pain Referrals: Mayda Garcia MD [Primary Care Provider] - What to do if you have Problems For any increased pain, shortness of breath, bleeding, nausea or vomiting, chest pain, or any unexpected problems, contact your Primary Care Provider. Call [facility] ([phone]) or report to the closest Emergency Room. Call 911 if necessary. 03/20/182118 <Electronically signed by Ulisses Alvarez> Date Ulisses Alvarez Cosigner Signature (If Indicated): Date CC: Mayad Garcia MD CHEST 1 VIEW Observed: 03/20/2018 Status: F Source: [place]UE (PORTABLE) 7:35 PM [facility] REPOSITORY [facility] Imaging Services [address] [place] [address] Chest 1 View (Portable) MR#: [id number] Acct: [id number] Name: LACY ALVARADO Rep #: [id number] : 1950 F 67 From: Janeth Forman MD PCP: Mayda Garcia MD Status: REG ER Study: Chest 1 View (Portable) Date of Exam: 03/20/18 Exam# [id number] Ordering Dr: Ulisses Chan DO STUDY: X-RAY CHEST REASON FOR EXAM: Female, 67 years old. Chest pain, dyspnea. TECHNIQUE: Portable chest. COMPARISON: 06/22/2017. FINDINGS: The lungs are clear and expanded. There is no demonstrated pleural abnormality. Normal size heart. Normal mediastinum and allie. Normal visualized pulmonary arteries. Normal visualized aortic arch and descending thoracic aorta. Normal visualized thoracic spine. Normal visualized ribs, clavicles, and shoulders. There is no demonstrated abnormality of the visualized soft tissue structures of the upper abdomen. RAD/Chest 1 View (Portable) IMPRESSION: Normal x-ray examination of the chest. Electronically Signed: Janeth Forman MD at 19:59 EST Tel , Service support , CC: Mayda Garcia MD; Ulisses Chan Yarn Texturing Machine Operator: Signed CBC W/DIFF, AUTOMATED Collected: 03/20/2018 Status: F Source: [place] 6:43 PM [facility] REPOSITORY TYPE CODE TESTS RESULT OUT OF RANGE REFERENCE UNITS LAB L100.1000 4.4-11.0 K/mm3 Normal WBC 5.5 LAB L100.1200 4.2-5.4 M/mm3 Low RBC 3.99 LAB L100.1300 12.0-15.0 g/dl Normal HGB 12.3 LAB L100.1400 37-47 % Normal HCT 37.8 LAB L100.1500 81-99 fL Normal MCV 94.7 LAB L100.1600 27.0-32.0 pg Normal MCH 30.8 LAB L100.1700 32-36 g/gl Normal MCHC 32.5 LAB L100.1810 11.6-14.6 % Normal RDW CV 13.0 LAB L100.1820 35.1-43.9 fl High RDW SD 45.1 LAB L100.1900 150-450 K/mm3 Normal PLT 228 LAB L100.2000 6.2-12.0 fl Normal MPV 10.1 LAB L100.2100 47-70 % Low NEUT% 46.2 LAB L100.2200 19-41 % High LY% 45.7 LAB L100.2300 0-10 % Normal MONO% 5.1 LAB L100.2400 0-5 % Normal EO% 2.6 LAB L100.2500 0-1 % Normal BASO% 0.2 LAB L100.2550 0.0-0.9 % Normal IM GRAN % 0.200 Result Comment: IG% - Immature Granulocytes (promyelocytes, myelocytes and metamyelocytes) > 1% indicates that a LEFT SHIFT is Present. LAB L100.2620 2.0-7.7 X10 3/uL Normal Absolute Neut 2.5 LAB L100.2720 0.83-4.51 X10 3/ul Normal Absolute Lymph 2.51 Performed By: #### L100.0100 #### [facility] [address] [place], [place], [id number] PROTHROMBIN TIME W/INR Collected: 03/20/2018 Status: F Source: [place] 6:43 PM [facility] REPOSITORY TYPE CODE TESTS RESULT OUT OF RANGE REFERENCE UNITS LAB L300.4150 11.7-14.9 SECONDS Normal PROTIME 12.7 LAB L300.4200 Normal INR 1.0 Performed By: #### L300.3900, L300.4310, L300.8000 #### [facility] [address] [facility] [id number] PARTIAL THROMBOPLAST Collected: 03/20/2018 Status: F Source: [place] TIME 6:43 PM [facility] REPOSITORY TYPE CODE TESTS RESULT OUT OF RANGE REFERENCE UNITS LAB L300.4310 24.1-36.2 Seconds Normal PTT 28.4 Performed By: #### L300.3900, L300.4310, L300.8000 #### [facility] [address] [place], [place], [id number] D-DIMER QUANTITATIVE Collected: 03/20/2018 Status: F Source: [place] (DVT/PE) 6:43 PM [facility] REPOSITORY TYPE CODE TESTS RESULT OUT OF RANGE REFERENCE UNITS LAB L300.8000 0.27-0.49 FEU/ug/m Normal D-DIMER 0.47 QUANT Result Comment: NORMAL D-Dimer level (<0.50) indicates no DVT or PE. Performed By: #### L300.3900, L300.4310, L300.8000 #### [facility] [address] [place], [place], [id number] BASIC METABOLIC Collected: 03/20/2018 Status: F Source: [place] PROFILE ([facility]) 6:43 PM [facility] REPOSITORY TYPE CODE TESTS RESULT OUT OF RANGE REFERENCE UNITS LAB L501.0100 74-106 mg/dL Normal GLU 102 Result Comment: Fasting Glucose result from 100 to 125 mg/dL suggests IMPAIRED HOMEOSTASIS per A.D.A. criteria. Please note revised GLUCOSE reference range effective 2017. LAB L501.1000 7-18 mg/dL High BUN 19 LAB L501.1100 0.55-1.02 mg/dL Normal CREAT,SERUM 0.86 Result Comment: The validity of the calculated GFR AND GFRAA in patients over 70 years has not been determined. Clinical correlation is essential. LAB L501.1110 >60 mL/min Normal EST GFR 70 Result Comment: Non- GFR Calc LAB L501.1115 >60 mL/min Normal EST GFR - AA 85 Result Comment: GFR Calc LAB L501.1255 ml/min Normal Estimated CRCL 51.58 LAB L501.1300 10-20 RATIO High BUN/CRE 22.0 LAB L501.2200 8.5-10 mg/dL Normal .1 CA 8.8 LAB L501.5300 136-14 mmol/L Normal 5 NA 145 LAB L501.5600 3.5-5. mmol/L Normal 1 K 4.0 LAB L501.5900 98-107 mmol/L High CL 108 LAB L501.6100 21.0-3 mmol/L Normal 2.0 CO2 28.0 LAB L501.6200 5-15 Normal GAP 9 Performed By: #### L500.2500, L501.4010 #### [facility] [address] [place], [place], [id number] TROPONIN-I Collected: 03/20/2018 Status: F Source: [place] 6:43 PM [facility] REPOSITORY TYPE CODE TESTS RESULT OUT OF RANGE REFERENCE UNITS LAB L501.4010 <0.045 ng/mL Normal < 0.015 TROPONIN-I Result Comment: TROPONIN-I EXPECTED VALUES <0.045 Negative 0.045 - 0.590 Consistent with Cardiac Damage > OR = 0.600 Critical Value Not every elevated troponin is indicative of TX. These values should be used with clinical judgement in examining the patient's clinical picture for diagnosis. To establish a diagnosis of TX versus myocardial injury, there must be a demonstrated rise and/or fall in the troponin values, in addition to ischemic symptoms, EKG changes, new regional wall motion abnormality, and/or angiographical evidence. PLEASE NOTE: REFERENCE RANGES EDITED 17 Performed By: #### L500.2500, L501.4010 #### [facility] [address] [place], [place], [id number] PROGRESS Observed: 02/25/2018 Status: COMPLETED Source: [place] 7:16 AM [facility] REPOSITORY HNO ID: [id number] Author: Karuna (Pt) Jenelle Service: (none) Author Type: Physical Therapist Type: Progress Notes Filed: 02/28/2018 11:35 AM Note Text: Episode Visit Count: 11 Therapist That Will Oversee The Plan Of Care: Karuna Almanzar PT Start of Care Date: 01/05/18 Onset Date: 01/06/16 Plan of Care Certification Date: 01/05/18 Patient Identified by Name and Date of : Yes REHABILITATION AND SPORTS THERAPY PHYSICAL THERAPY TREATMENT NOTE ASSESSMENT: Lacy Alvarado demonstrated good tolerance to session and was able to increase R SLS time to 20 sec and did better with side to side motion on the BAPS board. Lacy required help setting up band for resistance exercises, but was able to complete the exercises once the band was set up. The patient will continue to benefit from continued skilled physical therapy for ther ex, ultrasound and manual to help with R heel pain. PLAN FOR NEXT VISIT: start off with UBE and increase size of ball to #3 for BAPS board. POC update: 03/11/18 SUBJECTIVE: Went to see Dr. Flores and he is ok with waiting for surgery. Had no R hip pain like she did at her last visit. Patient having no heel pain. Pain Score: 0/10 Pain Location: Heel - Right;Hip - Right Post Treatment Pain Score: No Change OBJECTIVE MEASURES WITH LEVEL OF FUNCTION: Gait Gait Observation: Normal gait entering session wearing winter boots. TREATMENT: Therapeutic Exercise: 2: UBE with feet and arms. Seat 3, Length 6, feet 4, resistance 2, 5 minutes 3: RIGHT Ankle DF/PF/Inv/Ever 2x15 each with peach band (Patient insturcted to increase reps at home.) 5: Weight Bearing Gastroc Stretch on RIGHT 30 sec, 2x 6: Weight Bearing Soleus Stretch on RIGHT 30 sec, 2x 10: R toe scrunches 2x15 12: BAPS Board FWB Level 2 on the RIGHT: DF/PF, side to side 2x15 each for CW/CCW (easier to do side to side today!) 13: Side stepping on blue foam x6 with no UE support outside // bars 14: Step ups on foam 2x15 leading R and L with no UE support 15: B heel raises with B UE support 2x15 16: B heel raises + Eccentric lowering on the R with B UE support x15 17: SLS on R on carpet 20 sec holds, 2x 19: SLS on R throwing and catching ball on blue foam square at rebounder 2x12 Skilled Intervention: Patient was educated in proper exercise technique and purpose for exercises. Skilled judgment was provided in selection of appropriate interventions. Modalities: Body Region Treated - Ultrasound: R achillies tendon Patient Position: prone Mode: 100% w/cm2: 1.5 MHZ: 1 Minutes: 8 See flowsheet for details regarding treatment. Skilled Intervention: Proper administration and selection of modality based on clinical presentation, deficits, and needs. Patient response monitored throughout treatment. Billing: [facility]: Therapeutic Exercise ([id number]): 1:1 time: 36 minutes (2 units: 23-37 mins) Modalities Ultrasound (17010) 1:1 time: 8 minutes1 unit: 8- 22 mins Total time: 44 minutes Karuna Almanzar PT CNTHERAPY Observed: 02/25/2018 Status: COMPLETED Source: [place] 7:00 AM [facility] REPOSITORY OT/PT/Speech Visit (PTWS) LACY ALVARADO ([id number]) 1950 F Date Time Provider Department 02/25/18 7:00 AM KARUNA ALMANZAR (PT) PTWS Date Time Provider Department Center 02/25/2018 7:00 AM [id number], DIANA (PT)PTWS [facility] Reason for Visit: Physical Therapy [503] Primary Visit Diagnosis:Tendonitis, Achilles, right [M76.61] Other Visit Diagnosis:Berenice's deformity, 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] Allergies As of Date: 02/25/2018 Noted Allergy Reaction SEASONAL ALLERGIES 01/30/2014 14 - Other: See Comments Comments: Cats, Cockroach, Dust mites, molds, weeds Date Reviewed: 02/22/2018 Reviewed by: Carmelita Limon RN - Fully Assessed Prescriptions as of 02/25/2018 Sig: VERAPAMIL ER (SR) 240 MG TABL* Take 0.5 tablets by mouth twi* METFORMIN ER 500 MG TABLET,EX* Take 1 tablet by mouth twice * MELOXICAM 7.5 MG TABLET Take 1 tablet by mouth once d* ATORVASTATIN 40 MG TABLET Take 1 tablet by mouth once d* GABAPENTIN 600 MG TABLET Take 1 tablet by mouth twice * HYDROXYCHLOROQUINE 200 MG TAB* Take 1 tablet by mouth twice * DIVALPROEX 500 MG TABLET,MANDIE* Take 2 tablets by mouth daily* LOSARTAN 25 MG TABLET Take 1 tablet by mouth once d* GLIMEPIRIDE 1 MG TABLET Take one with evening meal OMEPRAZOLE 20 MG CAPSULE,MANDIE* Take 1 capsule by mouth twice* [id number]-[id number]-[id number] * Use 3 Drops in the left ear f* Patient not taking: Reported on 10/15/2017 DICYCLOMINE 10 MG CAPSULE Take 1 capsule by mouth befor* CPAP New supplies needed, medicall* CHOLECALCIFEROL (VITAMIN D3) * Take 1 tablet by mouth once d* BLOOD-GLUCOSE METER KIT Glucose Meter of Choice - Kit* BLOOD SUGAR DIAGNOSTIC STRIPS Test blood sugar(s) 1x times * LANCETS Test blood sugar(s) 1x daily.* OLOPATADINE 0.1 % EYE DROPS Use 1 Drop in both eyes twice* Patient not taking: Reported on 10/15/2017 NITROGLYCERIN 0.4 MG SUBLINGU* Dissolve 1 tablet under the t* FLUTICASONE 50 MCG/ACTUATION * 2 sprays to each nostril once* * ASPIRIN 81 MG TABLET Take one(1) tablet daily. Progress Notes: Karuna Almanzar PT 02/28/2018 11:35 AM Signed Episode Visit Count: 11 Therapist That Will Oversee The Plan Of Care: Karuna Almanzar PT Start of Care Date: 01/05/18 Onset Date: 01/06/16 Plan of Care Certification Date: 01/05/18 Patient Identified by Name and Date of : Yes REHABILITATION AND SPORTS THERAPY PHYSICAL THERAPY TREATMENT NOTE ASSESSMENT: Lacy Alvarado demonstrated good tolerance to session and was able to increase R SLS time to 20 sec and did better with side to side motion on the BAPS board. Lacy required help setting up band for resistance exercises, but was able to complete the exercises once the band was set up. The patient will continue to benefit from continued skilled physical therapy for ther ex, ultrasound and manual to help with R heel pain. PLAN FOR NEXT VISIT: start off with UBE and increase size of ball to #3 for BAPS board. POC update: 03/11/18 SUBJECTIVE: Went to see Dr. Flores and he is ok with waiting for surgery. Had no R hip pain like she did at her last visit. Patient having no heel pain. Pain Score: 0/10 Pain Location: Heel - Right;Hip - Right Post Treatment Pain Score: No Change OBJECTIVE MEASURES WITH LEVEL OF FUNCTION: Gait Gait Observation: Normal gait entering session wearing winter boots. TREATMENT: Therapeutic Exercise: 2: UBE with feet and arms. Seat 3, Length 6, feet 4, resistance 2, 5 minutes 3: RIGHT Ankle DF/PF/Inv/Ever 2x15 each with peach band (Patient insturcted to increase reps at home.) 5: Weight Bearing Gastroc Stretch on RIGHT 30 sec, 2x 6: Weight Bearing Soleus Stretch on RIGHT 30 sec, 2x 10: R toe scrunches 2x15 12: BAPS Board FWB Level 2 on the RIGHT: DF/PF, side to side 2x15 each for CW/CCW (easier to do side to side today!) 13: Side stepping on blue foam x6 with no UE support outside // bars 14: Step ups on foam 2x15 leading R and L with no UE support 15: B heel raises with B UE support 2x15 16: B heel raises + Eccentric lowering on the R with B UE support x15 17: SLS on R on carpet 20 sec holds, 2x 19: SLS on R throwing and catching ball on blue foam square at rebounder 2x12 Skilled Intervention: Patient was educated in proper exercise technique and purpose for exercises. Skilled judgment was provided in selection of appropriate interventions. Modalities: Body Region Treated - Ultrasound: R achillies tendon Patient Position: prone Mode: 100% w/cm2: 1.5 MHZ: 1 Minutes: 8 See flowsheet for details regarding treatment. Skilled Intervention: Proper administration and selection of modality based on clinical presentation, deficits, and needs. Patient response monitored throughout treatment. Billing: [facility]: Therapeutic Exercise ([id number]): 1:1 time: 36 minutes (2 units: 23-37 mins) Modalities Ultrasound (97834) 1:1 time: 8 minutes1 unit: 8- 22 mins Total time: 44 minutes Karuna Almanzar PT PROGRESS Observed: 02/22/2018 Status: COMPLETED Source: [place] 10:36 AM [facility] REPOSITORY HNO ID: [id number] Author: John Paul Godinez (Rt) Service: (none) Author Type: Rigging Loft Repairer Type: Progress Notes Filed: 02/22/2018 10:36 AM Note Text: Radiology Service Progress Note PATIENT NAME: Lacy Alvarado DATE OF SERVICE: February 22, 2018 TIME: 8:59 AM PATIENT IDENTITY VERIFICATION COMPLETED USING TWO (2) METHODS: Patient confirmed name verbally and Date of . PATIENT GENDER DATA: Female. status: : No status: NO. PATIENT RELEVANT IMPLANT DATA REVIEWED: Not Applicable RADIOLOGY DEPARTMENT: General X-ray: Exam(s) Completed: Lower Extremity X-Ray(s): Femur, Right and Foot, Right and Wt. Bearing: PERIPHERAL IV DATA: Not applicable SIGNED BY: RT Gretchen February 22, 2018 8:59 AM XR FEMUR 2V AP/LAT Observed: 02/22/2018 Status: F Source: [place] RT 9:05 AM [facility] REPOSITORY * * *Final Report* * * DATE OF EXAM: Feb 22 2018 9:05AM [id number] - XR FEMUR 2V AP/LAT RT / PROCEDURE REASON: Pain * * * * Physician Interpretation * * * * HISTORY: 67-YEAR-OLD FEMALE WITH Pain . right lateral femur pain for 3 days no injury TECHNIQUE: XR FEMUR 2V AP/LAT RT Laterality: RIGHT Number of different views (projections): 2 COMPARISON: None RESULT: Degenerative changes of the right hip. Enthesophytes but the greater trochanter. Degenerative changes of the knee joint. Vague sclerotic density in the region of the distal femoral metaphysis was not present on previous exam 2012 however there is increased density seen posteriorly in the skin which may represent superimposed density. No fracture. IMPRESSION: NO ACUTE BONY ABNORMALITY. DEGENERATIVE CHANGES IN THE HIP AND KNEE. Yarn Texturing Machine Operator: [facility] Transcribe Date/Time: Feb 22 2018 3:06P Dictated by : CHRIS FRANCIS MD This examination was interpreted and the report reviewed and electronically signed by: CHRIS FRANCIS MD on Feb 22 2018 3:15PM EST [id number] XR FOOT 3V AP/LAT/OBL Observed: 02/22/2018 Status: F Source: [place] RT 8:47 AM [facility] REPOSITORY * * *Final Report* * * DATE OF EXAM: Feb 22 2018 8:47AM [id number] - XR FOOT 3V AP/LAT/OBL RT / PROCEDURE REASON: multiple diagnoses * * * * Physician Interpretation * * * * HISTORY: 67-YEAR-OLD FEMALE WITH Berenice's deformity, right Tendonitis, Achilles, right Calcaneal spur of both feet Calcaneal spur of both feet. right planter heel spur, pain. TECHNIQUE: XR FOOT 3V AP/LAT/OBL RT Laterality: RIGHT Number of different views (projections): 3 COMPARISON: 01/10/2015 . RESULT: Narrowing of PIP joints of the second through fourth digits and DIP joint of the second third digit. Narrowing of the talonavicular joint with osteophytes and small bony prominence at dorsal anterior talus consistent with remote ligament injury. Calcaneal enthesophyte insertion Achilles tendon and plantar fascia. No acute fracture IMPRESSION: NO ACUTE BONY ABNORMALITY. NO CHANGE COMPARED TO THE PREVIOUS EXAM. Yarn Texturing Machine Operator: PSCB Transcribe Date/Time: Feb 22 2018 3:15P Dictated by : CHRIS FRANCIS MD This examination was interpreted and the report reviewed and electronically signed by: CHRIS FRANCIS MD on Feb 22 2018 3:18PM EST [id number] PROGRESS Observed: 02/22/2018 Status: COMPLETED Source: [place] 8:03 AM [facility] REPOSITORY [facility] ID: [id number] Author: Mynor Adityapierre Service: (none) Author Type: Physician Type: Progress Notes Filed: 02/22/2018 8:19 AM Note Text: Follow up podiatric office visit for: Chief Complaint: This 67 year old who presents for follow up:right achilles tendonitis/calcaneal spur Patient has been doing therapy. Therapy is helping to some degree but she still has pain. 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 She still has pain of right heel. She did have bone scan and she does have osteoporosis. PAIN EVALUATION 02/22/2018 Pain Score: 10 Pain Location: Heel-Right Description: Aching;Burning;Sharp Duration Amount of Time: - several Duration Units: Years Frequency: Intermittent Intervention: Relaxation;Reposition;Medication;Other: See comment PT, Hemoglobin A1C Date Value Ref Range Status 10/09/2016 6.3 (H) 4.3 - 5.6 % Final Comment: [place] [employer] guidelines indicate that patients with HgbA1c in the range 5.7-6.4% are at increased risk for development of diabetes, and intervention by lifestyle modification may be beneficial. HgbA1c greater or equal to 6.5% is considered diagnostic of diabetes. PCP: Thierno Garcia MD PAST MEDICAL HISTORY Diagnosis Date - Allergic rhinitis 02/06/2009 - Alopecia, unspecified 11/18/2005 - Blepharitis, unspecified 09/13/2007 - CAD (coronary artery disease) 11/24/200711/2007 CT angio-Nonobstructive CAD, <50% lesions in LAD and circ - Chest pain, unspecified - Diabetic - Epilepsy (HCC) 02/06/2009 since childhood - Epilepsy (HCC) - Hypersomnia, unspecified 09/26/2005 - Hypertension - Internal hemorrhoids 04/11/2015 - Iron deficiency anemia secondary to blood loss (chronic) 03/13/2004 - Lipoma of unspecified site 12/30/2007 - Obstructive sleep apnea - Osteopenia 02/06/2009 BMD done ? - Other and unspecified hyperlipidemia 02/06/2009 - Persistent disorder of initiating or maintaining sleep 08/31/2005 - Rheumatoid arthritis(714.0) - Seizures (HCC) - Snoring - Type II or unspecified type diabetes mellitus without mention of complication, not stated as uncontrolled 2007 - Varicose veins of leg with complications 11/29/2007 - Vitamin D deficiency 02/06/2009 Current Outpatient Prescriptions: verapamil SR (CALAN SR, ISOPTIN SR) 240 mg CR tablet Take 0.5 tablets by mouth twice daily. metFORMIN ER (GLUCOPHAGE XR) 500 mg 24 hr tablet Take 1 tablet by mouth twice daily before meals. meloxicam (MOBIC) 7.5 mg tablet Take 1 tablet by mouth once daily. atorvastatin (LIPITOR) 40 mg tablet Take 1 tablet by mouth once daily. gabapentin (NEURONTIN) 600 mg tablet Take 1 tablet by mouth twice daily. hydroxychloroquine (PLAQUENIL) 200 mg tablet Take 1 tablet by mouth twice daily. divalproex DR (DEPAKOTE) 500 mg EC tablet Take 2 tablets by mouth daily at bedtime. losartan (COZAAR) 25 mg tablet Take 1 tablet by mouth once daily. glimepiride (AMARYL) 1 mg tablet Take one with evening meal omeprazole (PRILOSEC) 20 mg capsule Take 1 capsule by mouth twice daily. dicyclomine (BENTYL) 10 mg capsule Take 1 capsule by mouth before meals and at bedtime. CPAP New supplies needed, medically necessary. Mask refitting please. autoPAP 8-15 cmH2O, mask, tubing, filters, heated humidity, lifetime supplies. Dx: LINA cholecalciferol (VITAMIN D3) 2,000 unit tablet Take 1 tablet by mouth once daily. Blood-Glucose Meter monitoring kit Glucose Meter of Choice - Kit - Dx: Type 2 DM - Controlled E11.9 blood sugar diagnostic (BLOOD GLUCOSE TEST) test strip Test blood sugar(s) 1x times daily. Dx: Type 2 DM - Controlled E11.9 Insulin: No Lancets lancets Test blood sugar(s) 1x daily. Dx: E11.9. Insulin: No nitroglycerin sublingual (NITROSTAT) 0.4 mg SL tablet Dissolve 1 tablet under the tongue as needed. FOR CHEST PAIN. IF NO RELIEF CALL 911 fluticasone (FLONASE) 50 mcg/actuation nasal spray 2 sprays to each nostril once to two times daily. ASPIRIN 81 MG TAB Take one(1) tablet daily. dkxwnrmg-kbyahsmwl-fznzlyqhiwcofz (CORTISPORIN) otic solution Use 3 Drops in the left ear four times daily. (Patient not taking: Reported on 10/15/2017 ) olopatadine (PATANOL) 0.1 % ophthalmic solution Use 1 Drop in both eyes twice daily as needed for Cold/Allergy Symptoms. (Patient not taking: Reported on 10/15/2017 ) No current facility-administered medications for this visit. ALLERGIES Allergen Reactions - Seasonal Allergies Other: See Comments Cats, Cockroach, Dust mites, molds, weeds PAST SURGICAL HISTORY Procedure Laterality Date - DELIVERY ONLY , low transverse - COLONOSCOP W/ OR W/O BRSH SPEC 01/12/2013 Colonoscopy - EGD W/O OR W/BRUSH/WASH 07/16/15 EGD - HYSTERECTOMY HX 2006 Hysterectomy, supracervical - KNEE SCOPE,DIAGNOSTIC Left 1997 Arthroscopy, knee - PAST SURGICAL HISTORY OF 2011 trigger finger release - PAST SURGICAL HISTORY OF 11-25- 6 days post right 1st dorsal compartment release REVIEW OF SYSTEMS: CONSTITUTIONAL: No fevers, chills, nightsweats, unintended weight loss HEENT: Denies frequent or severe heaches, nasal congestion/sinus symptoms, problematic allergy problems. EYES: No diplopia or blurry vision. CARDIOVASCULAR: No chest pain, dyspnea, palpitations, orthopnea, PND, ankle edema. PULM: No dyspnea, unexplained cough. GI: No dysphagia/odynophagia, problematic reflux, constipation, diarrhea, changes in stool habits, hematochezia, melena. : No new urinary complaints, including dysuria, gross hematuria or pyuria. NEURO: No new balance problems, peripheral weakness/paresthesias or numbness of concern. MUSC-SKEL: Right heel pain PSY: No concerns regarding depression, anxiety or panic. INTEGUMENTARY: No new skin changes (rash, new or changing mole, new growth) Physical Exam: Constitutional: Pt is a well developed 67 year old female who is alert, oriented, cooperative and in no apparent distress. OBJECTIVE: NVSI unchanged from previous visit. Dermatological: Nails 1-5 right are normal. Webspaces clean and dry 1-4 right. Skin appears well hydrated and supple. good color, texture, turgor. No open lesions present. No callosities present. 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 History and physical examination completed today. 2. Discussed painful heel spur. She has tried nsaids, heel lifts, stretching, therapy but still has pain. Discussed surgical options but patient not interested in surgery until next summer. She will continue with therapy. I will have her get updated xrays and mri for pre-op planning 3. She will be looking into surgery next summer. She lives alone so she will need to likely go in rehab for extended period as she lives on third floor of apartment building. 4. Patient to f/u when she is interested in surgery. Mynor Flores DPM PROGRESS Observed: 02/22/2018 Status: COMPLETED Source: [place] 7:57 AM [facility] REPOSITORY HNO ID: [id number] Author: Carmelita Limon RN Service: (none) Author Type: (none) Type: Progress Notes Filed: 02/22/2018 8:19 AM Note Text: AMB ROOMING INTAKE FLOWSHEET DATA Risk Screening Do you have concerns about personal safety or safety in the home?: No Pain Pain Score: 10/10 Pain Location: Heel-Right Description: Aching, Burning, Sharp Duration Amount of Time: (several) Duration Units: Years Frequency: Intermittent Intervention: Relaxation, Reposition, Medication, Other: See comment (PT,) Patient presents to f/u on [place], R. She continues with 10/10 pain that comes and goes. She is currently in PT and states it is helping some. She wants to pursue surgery in the future, possibly next summer. CNOV Observed: 02/22/2018 Status: COMPLETED Source: [place] 7:40 AM [facility] [place] REPOSITORY Office Visit (PODIWS) LACY ALVARADO ([id number]) 1950 F Date Time Provider Department 02/22/18 7:40 AM MYNOR FLORES PODIWS During your visit today, we recorded the following information about you: Carmelita Limon RN 02/22/2018 8:19 AM Signed AMB ROOMING INTAKE FLOWSHEET DATA Risk Screening Do you have concerns about personal safety or safety in the home?: No Pain Pain Score: 10/10 Pain Location: Heel-Right Description: Aching, Burning, Sharp Duration Amount of Time: (several) Duration Units: Years Frequency: Intermittent Intervention: Relaxation, Reposition, Medication, Other: See comment (PT,) [facility] She continues with 10/10 pain that comes and goes. She is currently in PT and states it is helping some. She wants to pursue surgery in the future, possibly next summer. Mynor Flores DPM 02/22/2018 8:19 AM Signed Follow up podiatric office visit for: Chief Complaint: This 67 year old who presents for follow up:right achilles tendonitis/calcaneal spur Patient has been doing therapy. Therapy is helping to some degree but she still has pain. 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 She still has pain of right heel. She did have bone scan and she does have osteoporosis. PAIN EVALUATION 02/22/2018 Pain Score: 10 Pain Location: Heel-Right Description: Aching;Burning;Sharp Duration Amount of Time: - several Duration Units: Years Frequency: Intermittent Intervention: Relaxation;Reposition;Medication;Other: See comment PT, Hemoglobin A1C Date Value Ref Range Status 10/09/2016 6.3 (H) 4.3 - 5.6 % Final Comment: [place] [employer] guidelines indicate that patients with HgbA1c in the range 5.7-6.4% are at increased risk for development of diabetes, and intervention by lifestyle modification may be beneficial. HgbA1c greater or equal to 6.5% is considered diagnostic of diabetes. PCP: Thierno Garcia MD PAST MEDICAL HISTORY Diagnosis Date - Allergic rhinitis 02/06/2009 - Alopecia, unspecified 11/18/2005 - Blepharitis, unspecified 09/13/2007 - CAD (coronary artery disease) 11/24/200711/2007 CT angio-Nonobstructive CAD, <50% lesions in LAD and circ - Chest pain, unspecified - Diabetic - Epilepsy (HCC) 02/06/2009 since childhood - Epilepsy (HCC) - Hypersomnia, unspecified 09/26/2005 - Hypertension - Internal hemorrhoids 04/11/2015 - Iron deficiency anemia secondary to blood loss (chronic) 03/13/2004 - Lipoma of unspecified site 12/30/2007 - Obstructive sleep apnea - Osteopenia 02/06/2009 BMD done ? - Other and unspecified hyperlipidemia 02/06/2009 - Persistent disorder of initiating or maintaining sleep 08/31/2005 - Rheumatoid arthritis(714.0) - Seizures (HCC) - Snoring - Type II or unspecified type diabetes mellitus without mention of complication, not stated as uncontrolled 2007 - Varicose veins of leg with complications 11/29/2007 - Vitamin D deficiency 02/06/2009 Current Outpatient Prescriptions: verapamil SR (CALAN SR, ISOPTIN SR) 240 mg CR tablet Take 0.5 tablets by mouth twice daily. metFORMIN ER (GLUCOPHAGE XR) 500 mg 24 hr tablet Take 1 tablet by mouth twice daily before meals. meloxicam (MOBIC) 7.5 mg tablet Take 1 tablet by mouth once daily. atorvastatin (LIPITOR) 40 mg tablet Take 1 tablet by mouth once daily. gabapentin (NEURONTIN) 600 mg tablet Take 1 tablet by mouth twice daily. hydroxychloroquine (PLAQUENIL) 200 mg tablet Take 1 tablet by mouth twice daily. divalproex DR (DEPAKOTE) 500 mg EC tablet Take 2 tablets by mouth daily at bedtime. losartan (COZAAR) 25 mg tablet Take 1 tablet by mouth once daily. glimepiride (AMARYL) 1 mg tablet Take one with evening meal omeprazole (PRILOSEC) 20 mg capsule Take 1 capsule by mouth twice daily. dicyclomine (BENTYL) 10 mg capsule Take 1 capsule by mouth before meals and at bedtime. CPAP New supplies needed, medically necessary. Mask refitting please. autoPAP 8-15 cmH2O, mask, tubing, filters, heated humidity, lifetime supplies. Dx: LINA cholecalciferol (VITAMIN D3) 2,000 unit tablet Take 1 tablet by mouth once daily. Blood-Glucose Meter monitoring kit Glucose Meter of Choice - Kit - Dx: Type 2 DM - Controlled E11.9 blood sugar diagnostic (BLOOD GLUCOSE TEST) test strip Test blood sugar(s) 1x times daily. Dx: Type 2 DM - Controlled E11.9 Insulin: No Lancets lancets Test blood sugar(s) 1x daily. Dx: E11.9. Insulin: No nitroglycerin sublingual (NITROSTAT) 0.4 mg SL tablet Dissolve 1 tablet under the tongue as needed. FOR CHEST PAIN. IF NO RELIEF CALL 911 fluticasone (FLONASE) 50 mcg/actuation nasal spray 2 sprays to each nostril once to two times daily. ASPIRIN 81 MG TAB Take one(1) tablet daily. lyxrfdct-lmxsemmsd-ebbeebbgidequi (CORTISPORIN) otic solution Use 3 Drops in the left ear four times daily. (Patient not taking: Reported on 10/15/2017 ) olopatadine (PATANOL) 0.1 % ophthalmic solution Use 1 Drop in both eyes twice daily as needed for Cold/Allergy Symptoms. (Patient not taking: Reported on 10/15/2017 ) No current facility-administered medications for this visit. ALLERGIES Allergen Reactions - Seasonal Allergies Other: See Comments Cats, Cockroach, Dust mites, molds, weeds PAST SURGICAL HISTORY Procedure Laterality Date - DELIVERY ONLY , low transverse - COLONOSCOP W/ OR W/O [facility] SPEC 01/12/2013 Colonoscopy - EGD W/O OR W/BRUSH/WASH 07/16/15 EGD - HYSTERECTOMY HX 2006 Hysterectomy, supracervical - KNEE SCOPE,DIAGNOSTIC Left 1997 Arthroscopy, knee - PAST SURGICAL HISTORY OF 2011 trigger finger release - PAST SURGICAL HISTORY OF 11-25-14 6 days post right 1st dorsal compartment release REVIEW OF SYSTEMS: CONSTITUTIONAL: No fevers, chills, nightsweats, unintended weight loss HEENT: Denies frequent or severe heaches, nasal congestion/sinus symptoms, problematic allergy problems. EYES: No diplopia or blurry vision. CARDIOVASCULAR: No chest pain, dyspnea, palpitations, orthopnea, PND, ankle edema. PULM: No dyspnea, unexplained cough. GI: No dysphagia/odynophagia, problematic reflux, constipation, diarrhea, changes in stool habits, hematochezia, melena. : No new urinary complaints, including dysuria, gross hematuria or pyuria. NEURO: No new balance problems, peripheral weakness/paresthesias or numbness of concern. MUSC-SKEL: Right heel pain PSY: No concerns regarding depression, anxiety or panic. INTEGUMENTARY: No new skin changes (rash, new or changing mole, new growth) Physical Exam: Constitutional: Pt is a well developed 67 year old female who is alert, oriented, cooperative and in no apparent distress. OBJECTIVE: NVSI unchanged from previous visit. Dermatological: Nails 1-5 right are normal. Webspaces clean and dry 1-4 right. Skin appears well hydrated and supple. good color, texture, turgor. No open lesions present. No callosities present. 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 History and physical examination completed today. 2. Discussed painful heel spur. She has tried nsaids, heel lifts, stretching, therapy but still has pain. Discussed surgical options but patient not interested in surgery until next summer. She will continue with therapy. I will have her get updated xrays and mri for pre-op planning 3. She will be looking into surgery next summer. She lives alone so she will need to likely go in rehab for extended period as she lives on third floor of apartment building. 4. Patient to f/u when she is interested in surgery. Mynor Flores DPM Referring Provider: MYNOR FLORES [[id number]] Allergies As of Date: 02/22/2018 Noted Allergy Reaction SEASONAL ALLERGIES 01/30/2014 14 - Other: See Comments Comments: Cats, Cockroach, Dust mites, molds, weeds Date Reviewed: 02/22/2018 Reviewed by: Carmelita Limon RN - Fully Assessed Reason for Visit: Follow Up [171] Primary Visit Diagnosis:Berenice's deformity, 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] Other Visit Diagnoses:Tendonitis, Achilles, right [M76.61] Calcaneal spur of both feet [M77.31, M77.32] Achilles tendinitis of right lower extremity [M76.61] Order(s):XR FOOT GENERAL 3V AP/LAT/OBL RT [[id number]] Order #: [id number] FUTURE MRI ANKLE WO IVCON RT [[id number]] Order #: [id number] FUTURE Prescriptions as of 02/22/2018 Sig: VERAPAMIL ER (SR) 240 MG TABL* Take 0.5 tablets by mouth twi* METFORMIN ER 500 MG TABLET,EX* Take 1 tablet by mouth twice * MELOXICAM 7.5 MG TABLET Take 1 tablet by mouth once d* ATORVASTATIN 40 MG TABLET Take 1 tablet by mouth once d* GABAPENTIN 600 MG TABLET Take 1 tablet by mouth twice * HYDROXYCHLOROQUINE 200 MG TAB* Take 1 tablet by mouth twice * DIVALPROEX 500 MG TABLET,MANDIE* Take 2 tablets by mouth daily* LOSARTAN 25 MG TABLET Take 1 tablet by mouth once d* GLIMEPIRIDE 1 MG TABLET Take one with evening meal OMEPRAZOLE 20 MG CAPSULE,MANDIE* Take 1 capsule by mouth twice* DICYCLOMINE 10 MG CAPSULE Take 1 capsule by mouth befor* CPAP New supplies needed, medicall* CHOLECALCIFEROL (VITAMIN D3) * Take 1 tablet by mouth once d* BLOOD-GLUCOSE METER KIT Glucose Meter of Choice - Kit* BLOOD SUGAR DIAGNOSTIC STRIPS Test blood sugar(s) 1x times * LANCETS Test blood sugar(s) 1x daily.* NITROGLYCERIN 0.4 MG SUBLINGU* Dissolve 1 tablet under the t* FLUTICASONE 50 MCG/ACTUATION * 2 sprays to each nostril once* * ASPIRIN 81 MG TABLET Take one(1) tablet daily. [id number] * Use 3 Drops in the left ear f* Patient not taking: Reported on 10/15/2017 OLOPATADINE 0.1 % EYE DROPS Use 1 Drop in both eyes twice* Patient not taking: Reported on 10/15/2017 Problem List As Of Date 02/22/2018 Noted Resolved DM w/o Complication Type II [E11.9] INVALID FOR*01/17/2014 More... Epilepsy (HCC) [G40.909] INVALID FOR* More... More... Vitamin D Deficiency [E55.9] INVALID FOR* More... Osteopenia [M85.80] INVALID FOR* More... Arthritis [M19.90] INVALID FOR* More... CAD (coronary artery disease) [I25.10] INVALID FOR* More... Allergic Rhinitis [J30.9] INVALID FOR*08/31/2009 Chronic Rhinitis [J31.0] INVALID FOR* Lipoma of unspecified site [D17.9] INVALID FOR*07/17/2014 Unspecified hereditary and idiopathic periphera*INVALID FOR*09/09/2016 Hyperlipidemia [E78.5] INVALID FOR*07/17/2014 Trigger thumb of left hand [M65.312] INVALID FOR*11/06/2011 Trigger thumb of left hand [M65.312] INVALID FOR*01/12/2012 Thyroid nodule [E04.1] INVALID FOR* More... Pain in joint, lower leg [M25.569] INVALID FOR*07/17/2014 LINA (obstructive sleep apnea) [G47.33] INVALID FOR* More... Stenosing tenosynovitis of wrist [M65.88] INVALID FOR*07/17/2014 Tendonitis, Achilles, right [M76.61] INVALID FOR* Hyperlipemia [E78.5] INVALID FOR* Achilles bursitis or tendinitis [M76.60] INVALID FOR*07/17/2014 DM2 (diabetes mellitus, type 2) (HCC) [E11.9] INVALID FOR* More... Thoracic or lumbosacral neuritis or radiculitis*INVALID FOR*07/17/2014 Left knee pain [M25.562] INVALID FOR* More... Arthritis of knee, left [M17.12] INVALID FOR*07/17/2014 Foot fracture [S92.909A] INVALID FOR*08/14/2016 Tendonitis, Achilles, right [M76.61] INVALID FOR*04/15/2016 Heel pain [M79.673] INVALID FOR*04/15/2016 Internal hemorrhoids [K64.8] INVALID FOR*04/15/2016 Blood per rectum [K62.5] INVALID FOR*04/15/2016 Essential hypertension [I10] INVALID FOR* Osteoarthritis of spine with radiculopathy, lum*INVALID FOR* DDD (degenerative disc disease), lumbar [M51.36]INVALID FOR* Berenice's deformity, 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] INVALID FOR* Encounter Status:Closed by MYNOR FLORES DPM on 02/22/18 PROGRESS Observed: 02/18/2018 Status: COMPLETED Source: [place] 7:05 AM [facility] [place] REPOSITORY HNO ID: [id number] Author: Karuna (Pt) Jenelle Service: (none) Author Type: Physical Therapist Type: Progress Notes Filed: 02/20/2018 3:12 PM Note Text: Episode Visit Count: 10 Therapist That Will Oversee The Plan Of Care: Karuna Almanzar PT Start of Care Date: 01/05/18 Onset Date: 01/06/16 Plan of Care Certification Date: 01/05/18 Patient Identified by Name and Date of : Yes REHABILITATION AND SPORTS THERAPY PHYSICAL THERAPY TREATMENT NOTE ASSESSMENT: Lacy Alvarado demonstrated improvements in R hip and R heel pain at the end of today's session. Progressed BAPS board to FWBing, no UE support for side steps or step ups, and added foam pad to SLS. The patient will continue to benefit from continued skilled physical therapy for ther ex, US, and manual for pain relief of R heel. PLAN FOR NEXT VISIT: start off with UBE to get pt warmed up. Increase reps for resistance bands for ankle. SUBJECTIVE: R hip pain started this week. She has seen Dr. Finley for her R hip in the past. She states if her hip pain kicks in this impacts her R heel. Pain Score: 10/10 (6/10 R foot, achy/sharp intermittent) Pain Location: Hip - Right Description: Aching;Sharp Frequency: Continuous Post Treatment Pain Score: 1/10 (0/10 R heel) Pain Location: Hip - Right Post Treatment Pain Description: Aching OBJECTIVE MEASURES WITH LEVEL OF FUNCTION: Gait Gait Observation: Antaglic gait on R walking into therapy. After session, no antalgic gait. TREATMENT: Therapeutic Exercise: 3: RIGHT Ankle DF/PF/Inv/Ever/Circles Cw/CW 2x10 each with peach band (cues for set up with band) 5: Weight Bearing Gastroc Stretch on RIGHT 30 sec, 2x 6: Weight Bearing Soleus Stretch on RIGHT 30 sec, 2x 10: R toe scrunches 2x15 12: BAPS Board FWB Level 2 on the RIGHT: DF/PF, side to side 2x10 and x10 each for CW/CCW (challenging doing side to side) 13: Side stepping on blue foam x6 with no UE support 14: Step ups on foam 2x15 leading R and L with no UE support 15: B heel raises with B UE support 2x12 16: B heel raises + Eccentric lowering on the R with B UE support x12 17: SLS on R on carpet 15 sec holds, 2x 18: SLS on R throwing and catching ball at rebounder 2x10 19: SLS on R throwing and catching ball on blue foam square at rebounder 2x10 Skilled Intervention: Patient was educated in proper exercise technique and purpose for exercises. Skilled judgment was provided in selection of appropriate interventions. Modalities: Body Region Treated - Ultrasound: R achillies tendon Patient Position: prone Mode: 100% w/cm2: 1.5 MHZ: 1 Minutes: 8 See flowsheet for details regarding treatment. Skilled Intervention: Proper administration and selection of modality based on clinical presentation, deficits, and needs. Patient response monitored throughout treatment. Billing: [facility]: Therapeutic Exercise ([id number]): 1:1 time: 35 minutes (2 units: 23-37 mins) Modalities Ultrasound ([id number]) 1:1 time: 8 minutes1 unit: 8- 22 mins Total time: 43 minutes Karuna Almanzar PT CNTHERAPY Observed: 02/18/2018 Status: COMPLETED Source: [place] 7:00 AM [facility] REPOS[facility]ORY OT/PT/Speech Visit (PTWS) LACY ALVARADO ([id number]) 1950 F Date Time Provider Department 02/18/18 7:00 AM KARUNA ALMANZAR (PT) PTWS Date Time Provider Department Center 02/18/2018 7:00 AM [id number], DIANA (PT)PTWS [facility] Reason for Visit: Physical Therapy [503] Primary Visit Diagnosis:Tendonitis, Achilles, right [M76.61] Other Visit Diagnosis:Berenice's deformity, 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] Allergies As of Date: 02/18/2018 Noted Allergy Reaction SEASONAL ALLERGIES 01/30/2014 14 - Other: See Comments Comments: Cats, Cockroach, Dust mites, molds, weeds Date Reviewed: 01/11/2018 Reviewed by: Angela Talbot Ma - Fully Assessed Prescriptions as of 02/18/2018 Sig: VERAPAMIL ER (SR) 240 MG TABL* Take 0.5 tablets by mouth twi* METFORMIN ER 500 MG TABLET,EX* Take 1 tablet by mouth twice * MELOXICAM 7.5 MG TABLET Take 1 tablet by mouth once d* ATORVASTATIN 40 MG TABLET Take 1 tablet by mouth once d* GABAPENTIN 600 MG TABLET Take 1 tablet by mouth twice * HYDROXYCHLOROQUINE 200 MG TAB* Take 1 tablet by mouth twice * DIVALPROEX 500 MG TABLET,MANDIE* Take 2 tablets by mouth daily* LOSARTAN 25 MG TABLET Take 1 tablet by mouth once d* GLIMEPIRIDE 1 MG TABLET Take one with evening meal OMEPRAZOLE 20 MG CAPSULE,MANDIE* Take 1 capsule by mouth twice* [id number] * Use 3 Drops in the left ear f* Patient not taking: Reported on 10/15/2017 DICYCLOMINE 10 MG CAPSULE Take 1 capsule by mouth befor* CPAP New supplies needed, medicall* CHOLECALCIFEROL (VITAMIN D3) * Take 1 tablet by mouth once d* BLOOD-GLUCOSE METER KIT Glucose Meter of Choice - Kit* BLOOD SUGAR DIAGNOSTIC STRIPS Test blood sugar(s) 1x times * LANCETS Test blood sugar(s) 1x daily.* OLOPATADINE 0.1 % EYE DROPS Use 1 Drop in both eyes twice* Patient not taking: Reported on 10/15/2017 NITROGLYCERIN 0.4 MG SUBLINGU* Dissolve 1 tablet under the t* FLUTICASONE 50 MCG/ACTUATION * 2 sprays to each nostril once* * ASPIRIN 81 MG TABLET Take one(1) tablet daily. Progress Notes: Karuna Almanzar, SARAH 02/20/2018 3:12 PM Signed Episode Visit Count: 10 Therapist That Will Oversee The Plan Of Care: Karuna Almanzar PT Start of Care Date: 01/05/18 Onset Date: 01/06/16 Plan of Care Certification Date: 01/05/18 Patient Identified by Name and Date of : Yes REHABILITATION AND SPORTS THERAPY PHYSICAL THERAPY TREATMENT NOTE ASSESSMENT: Lacy Alvarado demonstrated improvements in R hip and R heel pain at the end of today's session. Progressed BAPS board to FWBing, no UE support for side steps or step ups, and added foam pad to SLS. The patient will continue to benefit from continued skilled physical therapy for ther ex, US, and manual for pain relief of R heel. PLAN FOR NEXT VISIT: start off with UBE to get pt warmed up. Increase reps for resistance bands for ankle. SUBJECTIVE: R hip pain started this week. She has seen Dr. Finley for her R hip in the past. She states if her hip pain kicks in this impacts her R heel. Pain Score: 10/10 (6/10 R foot, achy/sharp intermittent) Pain Location: Hip - Right Description: Aching;Sharp Frequency: Continuous Post Treatment Pain Score: 1/10 (0/10 R heel) Pain Location: Hip - Right Post Treatment Pain Description: Aching OBJECTIVE MEASURES WITH LEVEL OF FUNCTION: Gait Gait Observation: Antaglic gait on R walking into therapy. After session, no antalgic gait. TREATMENT: Therapeutic Exercise: 3: RIGHT Ankle DF/PF/Inv/Ever/Circles Cw/CW 2x10 each with peach band (cues for set up with band) 5: Weight Bearing Gastroc Stretch on RIGHT 30 sec, 2x 6: Weight Bearing Soleus Stretch on RIGHT 30 sec, 2x 10: R toe scrunches 2x15 12: BAPS Board FWB Level 2 on the RIGHT: DF/PF, side to side 2x10 and x10 each for CW/CCW (challenging doing side to side) 13: Side stepping on blue foam x6 with no UE support 14: Step ups on foam 2x15 leading R and L with no UE support 15: B heel raises with B UE support 2x12 16: B heel raises + Eccentric lowering on the R with B UE support x12 17: SLS on R on carpet 15 sec holds, 2x 18: SLS on R throwing and catching ball at rebounder 2x10 19: SLS on R throwing and catching ball on blue foam square at rebounder 2x10 Skilled Intervention: Patient was educated in proper exercise technique and purpose for exercises. Skilled judgment was provided in selection of appropriate interventions. Modalities: Body Region Treated - Ultrasound: R achillies tendon Patient Position: prone Mode: 100% w/cm2: 1.5 MHZ: 1 Minutes: 8 See flowsheet for details regarding treatment. Skilled Intervention: Proper administration and selection of modality based on clinical presentation, deficits, and needs. Patient response monitored throughout treatment. Billing: [facility]: Therapeutic Exercise ([id number]): 1:1 time: 35 minutes (2 units: 23-37 mins) Modalities Ultrasound ([id number]) 1:1 time: 8 minutes1 unit: 8- 22 mins Total time: 43 minutes Karuna Almanzar PT PROGRESS Observed: 02/11/2018 Status: COMPLETED Source: [place] 8:22 AM [facility] REPOSITORY HNO ID: [id number] Author: Karuna Almanzar Service: (none) Author Type: Physical Therapist Type: Progress Notes Filed: 02/11/2018 8:24 AM Note Text: Episode Visit Count: 9 Therapist That Will Oversee The Plan Of Care: Karuna Almanzar PT Start of Care Date: 01/05/18 Onset Date: 01/06/16 Plan of Care Certification Date: 01/05/18 Patient Identified by Name and Date of : Yes REHABILITATION AND SPORTS THERAPY PHYSICAL THERAPY TREATMENT NOTE ASSESSMENT: Lacy Ede Alvarado demonstrated good tolerance to session with no R heel pain after increasing reps of exercises, adding peach theraband, and performing SLS activities. The patient will continue to benefit from continued skilled physical therapy for ther ex and manual for pain relief as needed. PLAN FOR NEXT VISIT: continue with SLS activites, try NWB on BAPS Board SUBJECTIVE: Didn't go to the walk. R foot acted up the other day and was bothering her because she on her feet and wore heels, which caused pain. Pain Score: 4/10 Pain Location: Heel - Right Description: Sharp Frequency: Intermittent (going up the stairs. ) OBJECTIVE MEASURES WITH LEVEL OF FUNCTION: Patient able to perform SLS for 10 sec on R TREATMENT: Therapeutic Exercise: 3: *RIGHT Ankle DF/PF/Inv/Ever/Circles Cw/CW 2x10 each with peach band (issued peach band) 5: Weight Bearing Gastroc Stretch on RIGHT 30 sec, 2x 6: Weight Bearing Soleus Stretch on RIGHT 30 sec, 2x 10: R toe scrunches 2x12 12: BAPS Board PWB Level 2 on the RIGHT: DF/PF, side to side, CW/CCW 2x12 of each 13: Side stepping on blue foam x2 with B UE support and x4 with no UE support 14: Step ups on foam 2x12 leading R and L 15: B heel raises with B UE support 2x12 16: *B heel raises + Eccentric lowering on the R with B UE support x10 17: *SLS on R 10 sec holds, 2x 18: SLS on R throwing and catching ball at rebounder x10 Skilled Intervention: Patient was educated in proper exercise technique and purpose for exercises. Reviewed and educated patient on additions/changes for home exercise program as above (*) Skilled judgment was provided in selection of appropriate interventions. Provided written instruction for home exercise program to facilitate proper performance and compliance. Patient education as noted. Billing: [facility]: Therapeutic Exercise ([id number]): 1:1 time: 38 minutes (3 units: 38-52 mins) Total time: 38 minutes Karuna Almanzar PT CNTHERAPY Observed: 02/11/2018 Status: COMPLETED Source: [place] 7:45 AM [facility] REPOSITORY OT/PT/Speech Visit (PTWS) LACY ALVARADO ([id number]) 1950 F Date Time Provider Department 02/11/18 7:45 AM KARUNA ALMANZAR (PT) PTWS Date Time Provider Department Center 02/11/2018 7:45 AM [id number], DIANA (PT)PTWS [facility] Reason for Visit: Physical Therapy [503] Primary Visit Diagnosis:Tendonitis, Achilles, right [M76.61] Other Visit Diagnosis:Berenice's deformity, 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] Allergies As of Date: 02/11/2018 Noted Allergy Reaction SEASONAL ALLERGIES 01/30/2014 14 - Other: See Comments Comments: Cats, Cockroach, Dust mites, molds, weeds Date Reviewed: 01/11/2018 Reviewed by: Angela Talbot Ma - Fully Assessed Prescriptions as of 02/11/2018 Sig: VERAPAMIL ER (SR) 240 MG TABL* Take 0.5 tablets by mouth twi* METFORMIN ER 500 MG TABLET,EX* Take 1 tablet by mouth twice * MELOXICAM 7.5 MG TABLET Take 1 tablet by mouth once d* ATORVASTATIN 40 MG TABLET Take 1 tablet by mouth once d* GABAPENTIN 600 MG TABLET Take 1 tablet by mouth twice * HYDROXYCHLOROQUINE 200 MG TAB* Take 1 tablet by mouth twice * DIVALPROEX 500 MG TABLET,MANDIE* Take 2 tablets by mouth daily* LOSARTAN 25 MG TABLET Take 1 tablet by mouth once d* GLIMEPIRIDE 1 MG TABLET Take one with evening meal OMEPRAZOLE 20 MG CAPSULE,MANDIE* Take 1 capsule by mouth twice* [id number] * Use 3 Drops in the left ear f* Patient not taking: Reported on 10/15/2017 DICYCLOMINE 10 MG CAPSULE Take 1 capsule by mouth befor* CPAP New supplies needed, medicall* CHOLECALCIFEROL (VITAMIN D3) * Take 1 tablet by mouth once d* BLOOD-GLUCOSE METER KIT Glucose Meter of Choice - Kit* BLOOD SUGAR DIAGNOSTIC STRIPS Test blood sugar(s) 1x times * LANCETS Test blood sugar(s) 1x daily.* OLOPATADINE 0.1 % EYE DROPS Use 1 Drop in both eyes twice* Patient not taking: Reported on 10/15/2017 NITROGLYCERIN 0.4 MG SUBLINGU* Dissolve 1 tablet under the t* FLUTICASONE 50 MCG/ACTUATION * 2 sprays to each nostril once* * ASPIRIN 81 MG TABLET Take one(1) tablet daily. Progress Notes: Karuna Almanzar PT 02/11/2018 8:24 AM Signed Episode Visit Count: 9 Therapist That Will Oversee The Plan Of Care: Karuna Almanzar PT Start of Care Date: 01/05/18 Onset Date: 01/06/16 Plan of Care Certification Date: 01/05/18 Patient Identified by Name and Date of : Yes REHABILITATION AND SPORTS THERAPY PHYSICAL THERAPY TREATMENT NOTE ASSESSMENT: Lacy Alvarado demonstrated good tolerance to session with no R heel pain after increasing reps of exercises, adding peach theraband, and performing SLS activities. The patient will continue to benefit from continued skilled physical therapy for ther ex and manual for pain relief as needed. PLAN FOR NEXT VISIT: continue with SLS activites, try NWB on BAPS Board SUBJECTIVE: Didn't go to the walk. R foot acted up the other day and was bothering her because she on her feet and wore heels, which caused pain. Pain Score: 4/10 Pain Location: Heel - Right Description: Sharp Frequency: Intermittent (going up the stairs. ) OBJECTIVE MEASURES WITH LEVEL OF FUNCTION: Patient able to perform SLS for 10 sec on R TREATMENT: Therapeutic Exercise: 3: *RIGHT Ankle DF/PF/Inv/Ever/Circles Cw/CW 2x10 each with peach band (issued peach band) 5: Weight Bearing Gastroc Stretch on RIGHT 30 sec, 2x 6: Weight Bearing Soleus Stretch on RIGHT 30 sec, 2x 10: R toe scrunches 2x12 12: BAPS Board PWB Level 2 on the RIGHT: DF/PF, side to side, CW/CCW 2x12 of each 13: Side stepping on blue foam x2 with B UE support and x4 with no UE support 14: Step ups on foam 2x12 leading R and L 15: B heel raises with B UE support 2x12 16: *B heel raises + Eccentric lowering on the R with B UE support x10 17: *SLS on R 10 sec holds, 2x 18: SLS on R throwing and catching ball at rebounder x10 Skilled Intervention: Patient was educated in proper exercise technique and purpose for exercises. Reviewed and educated patient on additions/changes for home exercise program as above (*) Skilled judgment was provided in selection of appropriate interventions. Provided written instruction for home exercise program to facilitate proper performance and compliance. Patient education as noted. Billing: [facility]: Therapeutic Exercise ([id number]): 1:1 time: 38 minutes (3 units: 38-52 mins) Total time: 38 minutes Karuna Almanzar PT PROGRESS Observed: 02/04/2018 Status: COMPLETED Source: [place] 8:16 AM [facility] REPOSITORY HNO ID: [id number] Author: Karuna (Pt) Jenelle Service: (none) Author Type: Physical Therapist Type: Progress Notes Filed: 02/04/2018 8:24 AM Note Text: Episode Visit Count: 8 Therapist That Will Oversee The Plan Of Care: Karuna Almanzar PT Start of Care Date: 01/05/18 Onset Date: 01/06/16 Plan of Care Certification Date: 01/05/18 Patient Identified by Name and Date of : Yes REHABILITATION AND SPORTS THERAPY PHYSICAL THERAPY PROGRESS REPORT PLAN OF CARE UPDATE: Assessment: Lacy Alvarado exhibits improvements in R ankle ROM, R ankle strength, R gastroc flexibility, and intermittent pain in R heel/ankle. She continues to be limited with walking and physical activities. She is progressing as expected towards her therapy goals as demonstrated by: home exercise program compliance, pain levels, documented subjective information on progress, documented objective information regarding strength, range of motion and overall function and appointment compliance. She will benefit from continued skilled therapy requiring ther ex and manual in order to improve ROM, strength, and pain. Functional gains: Increased independence with HEP Increased ROM Increased strength Decreased intensity of pain Goals updated on 02/04/2018. Price in home exercise program.--MET for current HEP Patient will decrease pain rating by 2 points to meet minimal clinical important difference for numeric pain rating scale. (Best=3/10 AND Worst=8/10)--Progressing for Worst pain. Patient will increase active ROM of R ankle to equal L ankle to allow pt to to achieve neutral postural alignment and improved performance of ADLs. Patient will increase strength of R ankle to 5/5 to allow for return to prior functional status and perform ADLs.--PROGRESSING Patient will increase flexibility of R gastroc to equal unaffected extremity/side to improve ability to maintain proper posture, restore normal mechanics and decrease pain.--PROGRESSING Demonstrate improvement on functional score: Patient will improve his/her AM-PAC T-scale score by 4 points to indicate a Minimal Clinical Important Difference. (Goal: 58.59)--MET G CODE REPORTING Based on clinical assessment and the score on the AM-PAC Scale Score Assessment Tool, the G code and corresponding severity modifiers are documented below. Evaluation: 01/05/2018 Current Status: Mobility: Walking and Moving Around: G8978 20-39% impaired Goal Status: Mobility: Walking and Moving Around: G8979 20-39% impaired Progress Report: 02/04/2018 Current Status: Mobility: Walking and Moving Around: G8978 CI 1-19% impaired Goal Status: Mobility: Walking and Moving Around: G8979 CH 0% impaired Planned Interventions, Frequency, and Duration: (2x a week for a week and then 1x a week for 4 weeks), 5 weeks Total Number of Visits Planned: 14 Patient to be seen for Therapeutic exercise;Neuromuscular re-education;Manual therapy;Therapeutic activities;Self-shelter management;Gait Training;Patient/Family/Caregiver Education;Modalities;Functional training;General Conditioning PLAN FOR NEXT VISIT: Add resistance band to ankle exercises, SLS, Manual and US SUBJECTIVE: Patient arrived late and then stated she had to leave by 8:10am. Patient feels 50% better since starting PT. No pain in heel during work day. Every now and then the pain comes and goes but is brief. Lowest pain 3/10 and highest 10/10. Patient reported the heel raises are going well. Pain Score: 0/10 Pain Location: Heel - Right OBJECTIVE MEASURES WITH LEVEL OF FUNCTION: LE AROM R Ankle Dorsiflexion: 15 Degrees (no pain) R Ankle Plantar Flexion: 30 Degrees (no pain) R Ankle Inversion: 10 (no pain ) R Ankle Eversion: 8 (no pain) LE Flexibility R Gastrocnemius Flexibility: Nil limitation L Gastrocnemius Flexibility: WFL LE Strength R Ankle Dorsiflexion (L4): 4/5 R Ankle Plantar Flexion: 4/5 R Ankle Inversion: 4/5 R Ankle Eversion: 4/5 TREATMENT: Therapeutic Exercise: 5: Weight Bearing Gastroc Stretch on RIGHT 30 sec, 2x 6: Weight Bearing Soleus Stretch on RIGHT 30 sec, 2x Advised patient to continue to perform his HEP 1-2x a day. As she has made great strides over the past 4 weeks! Recommending continued therapy. Skilled Intervention: Patient was educated in proper exercise technique and purpose for exercises. Skilled judgment was provided in selection of appropriate interventions. Billing: [facility]: Therapeutic Exercise ([id number]): 1:1 time: 20 minutes (1 unit: 8-22 mins) Total time: 20 minutes Karuna Almanzar PT CNTHERAPY Observed: 02/04/2018 Status: COMPLETED Source: [place] 7:45 AM [facility] REPOSITORY OT/PT/Speech Visit (PTWS) LACY ALVARADO ([id number]) 1950 F Date Time Provider Department 02/04/18 7:45 AM KARUNA ALMANZAR (PT) PTWS Date Time Provider Department Center 02/04/2018 7:45 AM [id number], DIANA (PT)PTWS [facility] Reason for Visit: PT Progress Note [1596] Primary Visit Diagnosis:Tendonitis, Achilles, right [M76.61] Other Visit Diagnosis:Berenice's deformity, 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] Allergies As of Date: 02/04/2018 Noted Allergy Reaction SEASONAL ALLERGIES 01/30/2014 14 - Other: See Comments Comments: Cats, Cockroach, Dust mites, molds, weeds Date Reviewed: 01/11/2018 Reviewed by: Angela Talbot Ma - Fully Assessed Prescriptions as of 02/04/2018 Sig: VERAPAMIL ER (SR) 240 MG TABL* Take 0.5 tablets by mouth twi* METFORMIN ER 500 MG TABLET,EX* Take 1 tablet by mouth twice * MELOXICAM 7.5 MG TABLET Take 1 tablet by mouth once d* ATORVASTATIN 40 MG TABLET Take 1 tablet by mouth once d* GABAPENTIN 600 MG TABLET Take 1 tablet by mouth twice * HYDROXYCHLOROQUINE 200 MG TAB* Take 1 tablet by mouth twice * DIVALPROEX 500 MG TABLET,MANDIE* Take 2 tablets by mouth daily* LOSARTAN 25 MG TABLET Take 1 tablet by mouth once d* GLIMEPIRIDE 1 MG TABLET Take one with evening meal OMEPRAZOLE 20 MG CAPSULE,MANDIE* Take 1 capsule by mouth twice* [id number] * Use 3 Drops in the left ear f* Patient not taking: Reported on 10/15/2017 DICYCLOMINE 10 MG CAPSULE Take 1 capsule by mouth befor* CPAP New supplies needed, medicall* CHOLECALCIFEROL (VITAMIN D3) * Take 1 tablet by mouth once d* BLOOD-GLUCOSE METER KIT Glucose Meter of Choice - Kit* BLOOD SUGAR DIAGNOSTIC STRIPS Test blood sugar(s) 1x times * LANCETS Test blood sugar(s) 1x daily.* OLOPATADINE 0.1 % EYE DROPS Use 1 Drop in both eyes twice* Patient not taking: Reported on 10/15/2017 NITROGLYCERIN 0.4 MG SUBLINGU* Dissolve 1 tablet under the t* FLUTICASONE 50 MCG/ACTUATION * 2 sprays to each nostril once* * ASPIRIN 81 MG TABLET Take one(1) tablet daily. Progress Notes: Karuna Almanzar PT 02/04/2018 8:24 AM Signed Episode Visit Count: 8 Therapist That Will Oversee The Plan Of Care: Karuna Almanzar PT Start of Care Date: 01/05/18 Onset Date: 01/06/16 Plan of Care Certification Date: 01/05/18 Patient Identified by Name and Date of : Yes REHABILITATION AND SPORTS THERAPY PHYSICAL THERAPY PROGRESS REPORT PLAN OF CARE UPDATE: Assessment: Lacy Alvarado exhibits improvements in R ankle ROM, R ankle strength, R gastroc flexibility, and intermittent pain in R heel/ankle. She continues to be limited with walking and physical activities. She is progressing as expected towards her therapy goals as demonstrated by: home exercise program compliance, pain levels, documented subjective information on progress, documented objective information regarding strength, range of motion and overall function and appointment compliance. She will benefit from continued skilled therapy requiring ther ex and manual in order to improve ROM, strength, and pain. Functional gains: Increased independence with HEP Increased ROM Increased strength Decreased intensity of pain Goals updated on 02/04/2018. Price in home exercise program.--MET for current HEP Patient will decrease pain rating by 2 points to meet minimal clinical important difference for numeric pain rating scale. (Best=3/10 AND Worst=8/10)--Progressing for Worst pain. Patient will increase active ROM of R ankle to equal L ankle to allow pt to to achieve neutral postural alignment and improved performance of ADLs. Patient will increase strength of R ankle to 5/5 to allow for return to prior functional status and perform ADLs.--PROGRESSING Patient will increase flexibility of R gastroc to equal unaffected extremity/side to improve ability to maintain proper posture, restore normal mechanics and decrease pain.--PROGRESSING Demonstrate improvement on functional score: Patient will improve his/her AM-PAC T-scale score by 4 points to indicate a Minimal Clinical Important Difference. (Goal: 58.59)--MET G CODE REPORTING Based on clinical assessment and the score on the AM-PAC Scale Score Assessment Tool, the G code and corresponding severity modifiers are documented below. Evaluation: 01/05/2018 Current Status: Mobility: Walking and Moving Around: G8978 20-39% impaired Goal Status: Mobility: Walking and Moving Around: G8979 CJ 20-39% impaired Progress Report: 02/04/2018 Current Status: Mobility: Walking and Moving Around: G8978 CI 1-19% impaired Goal Status: Mobility: Walking and Moving Around: G8979 0% impaired Planned Interventions, Frequency, and Duration: (2x a week for a week and then 1x a week for 4 weeks), 5 weeks Total Number of Visits Planned: 14 Patient to be seen for Therapeutic exercise;Neuromuscular re-education;Manual therapy;Therapeutic activities;Self-shelter management;Gait Training;Patient/Family/Caregiver Education;Modalities;Functional training;General Conditioning PLAN FOR NEXT VISIT: Add resistance band to ankle exercises, SLS, Manual and US SUBJECTIVE: Patient arrived late and then stated she had to leave by 8:10am. Patient feels 50% better since starting PT. No pain in heel during work day. Every now and then the pain comes and goes but is brief. Lowest pain 3/10 and highest 10/10. Patient reported the heel raises are going well. Pain Score: 0/10 Pain Location: Heel - Right OBJECTIVE MEASURES WITH LEVEL OF FUNCTION: LE AROM R Ankle Dorsiflexion: 15 Degrees (no pain) R Ankle Plantar Flexion: 30 Degrees (no pain) R Ankle Inversion: 10 (no pain ) R Ankle Eversion: 8 (no pain) LE Flexibility R Gastrocnemius Flexibility: Nil limitation L Gastrocnemius Flexibility: WFL LE Strength R Ankle Dorsiflexion (L4): 4/5 R Ankle Plantar Flexion: 4/5 R Ankle Inversion: 4/5 R Ankle Eversion: 4/5 TREATMENT: Therapeutic Exercise: 5: Weight Bearing Gastroc Stretch on RIGHT 30 sec, 2x 6: Weight Bearing Soleus Stretch on RIGHT 30 sec, 2x Advised patient to continue to perform his HEP 1-2x a day. As she has made great strides over the past 4 weeks! Recommending continued therapy. Skilled Intervention: Patient was educated in proper exercise technique and purpose for exercises. Skilled judgment was provided in selection of appropriate interventions. Billing: [facility]: Therapeutic Exercise ([id number]): 1:1 time: 20 minutes (1 unit: 8-22 mins) Total time: 20 minutes Karuna Almanzar PT PROGRESS Observed: 02/02/2018 Status: COMPLETED Source: [place] 8:15 AM [facility] [place] REPOSITORY HNO ID: [id number] Author: Karuna Almanzar Service: (none) Author Type: Physical Therapist Type: Progress Notes Filed: 02/03/2018 2:22 PM Note Text: Episode Visit Count: 7 Therapist That Will Oversee The Plan Of Care: Karuna Almanzar PT Start of Care Date: 01/05/18 Onset Date: 01/06/16 Plan of Care Certification Date: 01/05/18 Patient Identified by Name and Date of : Yes REHABILITATION AND SPORTS THERAPY PHYSICAL THERAPY TREATMENT NOTE ASSESSMENT: Lacy Alvarado demonstrated good tolerance to 1 lb on foot for ankle ROM. She stated if felt good.The patient will continue to benefit from continued skilled physical therapy for ther ex, manual, and US. POC update 02/04/18. PLAN FOR NEXT VISIT: POC Update: 02/04/2018. See how heel raises are going. Manual/US SUBJECTIVE: Patient arrived late to session. Limited session today. Patient states she can tolerate more weight on R heel when walking. Pain Score: 6/10 Pain Location: Heel - Right Description: Aching;Sharp Frequency: Intermittent Post Treatment Pain Score: 0/10 Pain Location: Heel - Right OBJECTIVE MEASURES WITH LEVEL OF FUNCTION: Gait Gait Observation: Walking with more heel strike on the R entering session TREATMENT: Therapeutic Exercise: 3: RIGHT Ankle DF/PF/Inv/Ever/Circles Cw/CW x10 each with 1lb ankle weight 4: RIGHT Ankle tracing A-Z with 1lb on foot 5: Weight Bearing Gastroc Stretch on RIGHT 30 sec, 2x 6: Weight Bearing Soleus Stretch on RIGHT 30 sec, 2x 10: R toe scrunches 2x12 11: Step ups on green step (4) 1x12 leading with R and L 12: BAPS Board PWB Level 1 on the RIGHT: DF/PF, side to side, CW/CCW x12 of each 13: Side stepping on blue foam x5 with B UE support 14: Step ups on foam x10 leading R and L 15: *B heel raises with B UE support x10 Skilled Intervention: Patient was educated in proper exercise technique and purpose for exercises. Reviewed and educated patient on additions/changes for home exercise program as above (*) Skilled judgment was provided in selection of appropriate interventions. Provided written instruction for home exercise program to facilitate proper performance and compliance. Correct performance of therapeutic exercises was facilitated with verbal, visual and tactile cuing. Manual Therapy: 1: Prone: IASTM with [employer] Scanner for 13 minutes to R achillies tendon Skilled Intervention: Manual skills to improve joint mobility, ROM, and decrease pain. Utilized anatomy knowledge of the therapist, and assessment of patient's response to intervention. Billing: [facility]: Therapeutic Exercise ([id number]): 1:1 time: 22 minutes (1 unit: 8-22 mins) Manual Therapy ([id number]): 1:1 time: 13 minutes (1 unit: 8-22 mins) Total time: 35 minutes Karuna Almanzar PT CNTHERAPY Observed: 02/02/2018 Status: COMPLETED Source: [place] 7:45 AM [facility] REPOSITORY OT/PT/Speech Visit (PTWS) LACY ALVARADO Ede ([id number]) 1950 F Date Time Provider Department 02/02/18 7:45 AM KARUNA ALMANZAR (PT) PTWS Date Time Provider Department Center 02/02/2018 7:45 AM [id number], DIANA (PT)PTWS [facility] Reason for Visit: Physical Therapy [503] Primary Visit Diagnosis:Tendonitis, Achilles, right [M76.61] Other Visit Diagnosis:Berenice's deformity, 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] Allergies As of Date: 02/02/2018 Noted Allergy Reaction SEASONAL ALLERGIES 01/30/2014 14 - Other: See Comments Comments: Cats, Cockroach, Dust mites, molds, weeds Date Reviewed: 01/11/2018 Reviewed by: Angela Talbot Ma - Fully Assessed Prescriptions as of 02/02/2018 Sig: VERAPAMIL ER (SR) 240 MG TABL* Take 0.5 tablets by mouth twi* METFORMIN ER 500 MG TABLET,EX* Take 1 tablet by mouth twice * MELOXICAM 7.5 MG TABLET Take 1 tablet by mouth once d* ATORVASTATIN 40 MG TABLET Take 1 tablet by mouth once d* GABAPENTIN 600 MG TABLET Take 1 tablet by mouth twice * HYDROXYCHLOROQUINE 200 MG TAB* Take 1 tablet by mouth twice * DIVALPROEX 500 MG TABLET,MANDIE* Take 2 tablets by mouth daily* LOSARTAN 25 MG TABLET Take 1 tablet by mouth once d* GLIMEPIRIDE 1 MG TABLET Take one with evening meal OMEPRAZOLE 20 MG CAPSULE,MANDIE* Take 1 capsule by mouth twice* [id number] * Use 3 Drops in the left ear f* Patient not taking: Reported on 10/15/2017 DICYCLOMINE 10 MG CAPSULE Take 1 capsule by mouth befor* CPAP New supplies needed, medicall* CHOLECALCIFEROL (VITAMIN D3) * Take 1 tablet by mouth once d* BLOOD-GLUCOSE METER KIT Glucose Meter of Choice - Kit* BLOOD SUGAR DIAGNOSTIC STRIPS Test blood sugar(s) 1x times * LANCETS Test blood sugar(s) 1x daily.* OLOPATADINE 0.1 % EYE DROPS Use 1 Drop in both eyes twice* Patient not taking: Reported on 10/15/2017 NITROGLYCERIN 0.4 MG SUBLINGU* Dissolve 1 tablet under the t* FLUTICASONE 50 MCG/ACTUATION * 2 sprays to each nostril once* * ASPIRIN 81 MG TABLET Take one(1) tablet daily. Progress Notes: Karuna Almanzar PT 02/03/2018 2:22 PM Signed Episode Visit Count: 7 Therapist That Will Oversee The Plan Of Care: Karuna Almanzar PT Start of Care Date: 01/05/18 Onset Date: 01/06/16 Plan of Care Certification Date: 01/05/18 Patient Identified by Name and Date of : Yes REHABILITATION AND SPORTS THERAPY PHYSICAL THERAPY TREATMENT NOTE ASSESSMENT: Lacy Alvarado demonstrated good tolerance to 1 lb on foot for ankle ROM. She stated if felt good.The patient will continue to benefit from continued skilled physical therapy for ther ex, manual, and US. POC update 02/04/18. PLAN FOR NEXT VISIT: POC Update: 02/04/2018. See how heel raises are going. Manual/US SUBJECTIVE: Patient arrived late to session. Limited session today. Patient states she can tolerate more weight on R heel when walking. Pain Score: 6/10 Pain Location: Heel - Right Description: Aching;Sharp Frequency: Intermittent Post Treatment Pain Score: 0/10 Pain Location: Heel - Right OBJECTIVE MEASURES WITH LEVEL OF FUNCTION: Gait Gait Observation: Walking with more heel strike on the R entering session TREATMENT: Therapeutic Exercise: 3: RIGHT Ankle DF/PF/Inv/Ever/Circles Cw/CW x10 each with 1lb ankle weight 4: RIGHT Ankle tracing A-Z with 1lb on foot 5: Weight Bearing Gastroc Stretch on RIGHT 30 sec, 2x 6: Weight Bearing Soleus Stretch on RIGHT 30 sec, 2x 10: R toe scrunches 2x12 11: Step ups on green step (4) 1x12 leading with R and L 12: BAPS Board PWB Level 1 on the RIGHT: DF/PF, side to side, CW/CCW x12 of each 13: Side stepping on blue foam x5 with B UE support 14: Step ups on foam x10 leading R and L 15: *B heel raises with B UE support x10 Skilled Intervention: Patient was educated in proper exercise technique and purpose for exercises. Reviewed and educated patient on additions/changes for home exercise program as above (*) Skilled judgment was provided in selection of appropriate interventions. Provided written instruction for home exercise program to facilitate proper performance and compliance. Correct performance of therapeutic exercises was facilitated with verbal, visual and tactile cuing. Manual Therapy: 1: Prone: IASTM with [employer] Scanner for 13 minutes to R achillies tendon Skilled Intervention: Manual skills to improve joint mobility, ROM, and decrease pain. Utilized anatomy knowledge of the therapist, and assessment of patient's response to intervention. Billing: [facility]: Therapeutic Exercise ([id number]): 1:1 time: 22 minutes (1 unit: 8-22 mins) Manual Therapy ([id number]): 1:1 time: 13 minutes (1 unit: 8-22 mins) Total time: 35 minutes Karuna Almanzar PT PROGRESS Observed: 01/31/2018 Status: COMPLETED Source: [place] 12:14 PM [facility] REPOSITORY HNO ID: [id number] Author: Karuna (Pt) Jenelle Service: (none) Author Type: Physical Therapist Type: Progress Notes Filed: 01/31/2018 12:19 PM Note Text: Episode Visit Count: 6 Therapist That Will Oversee The Plan Of Care: Karuna Almanzar PT Start of Care Date: 01/05/18 Onset Date: 01/06/16 Plan of Care Certification Date: 01/05/18 Patient Identified by Name and Date of : Yes REHABILITATION AND SPORTS THERAPY PHYSICAL THERAPY TREATMENT NOTE ASSESSMENT: Lacy Alvarado demonstrated difficulty with stepping down her steps to exit her home this morning indicating she had intermittent 10/10 pain. Patient with no reports of pain during session. Progressed patient to using PWB with BAPS board and side stepping on foam. The patient will continue to benefit from continued skilled physical therapy for R achillies tendonitis. PLAN FOR NEXT VISIT: increase reps on BAPS board. Step ups on blue foam. Manual. US. POC update 02/04/18 SUBJECTIVE: Didn't have any hurt wearing the tape and small piece feel off. Didn't have any pain until stepped down from step this AM Pain Score: 10/10 Pain Location: Heel - Right Frequency: Intermittent (stepping down onto step exiting home) Post Treatment Pain Score: 0/10 Pain Location: Heel - Right OBJECTIVE MEASURES WITH LEVEL OF FUNCTION: Gait Gait Observation: Normal gait entering session TREATMENT: Therapeutic Exercise: 3: RIGHT Ankle DF/PF/Inv/Ever/Circles Cw/CW x20 each 4: RIGHT Ankle tracing A-Z 5: Weight Bearing Gastroc Stretch on RIGHT 30 sec, 2x 6: Weight Bearing Soleus Stretch on RIGHT 30 sec, 2x 9: Seated Right calf stretch with strap 30 sec, 3x 10: R toe scrunches 2x10 11: Step ups on green step (4) 1x12 leading with R and L 12: BAPS Board PWB Level 1 on the RIGHT: DF/PF, side to side, CW/CCW x10 of each 13: Side stepping on blue foam x4 with B UE support Skilled Intervention: Patient was educated in proper exercise technique and purpose for exercises. Skilled judgment was provided in selection of appropriate interventions. Manual Therapy: 1: Prone: IASTM with [employer] Scanner for 8 minutes to R achillies tendon 2: Kinesiotape to R achillies tendon with a piece of tape from base of heel to mid calf 25% stretch and then small piece horizontal with 25% stretch Skilled Intervention: Manual skills to improve joint mobility, ROM, and decrease pain. Utilized anatomy knowledge of the therapist, and assessment of patient's response to intervention. Modalities: Ultrasound Body Region Treated - Ultrasound: R achillies tendon Patient Position: prone Mode: 100% w/cm2: 1.5 MHZ: 1 Minutes: 10 See flowsheet for details regarding treatment. Skilled Intervention: Proper administration and selection of modality based on clinical presentation, deficits, and needs. Patient response monitored throughout treatment. Billing: [facility]: Therapeutic Exercise ([id number]): 1:1 time: 20 minutes (2 units: 23-37 mins) Manual Therapy ([id number]): 1:1 time: 12 minutes (1 unit: 8-22 mins) Modalities Ultrasound ([id number]) 1:1 time: 10 minutes1 unit: 8-22 mins Total time: 42 minutes Karuna Almanzar PT CNTHERAPY Observed: 01/28/2018 Status: COMPLETED Source: [place] 7:45 AM [facility] REPOSITORY OT/PT/Speech Visit (PTWS) LACY ALVARADO ([id number]) 1950 F Date Time Provider Department 01/28/18 7:45 AM KARUNA ALMANZAR (PT) PTWS Date Time Provider Department Center 01/28/2018 7:45 AM [id number], DIANA (PT)PTWS [facility] Reason for Visit: Physical Therapy [503] Primary Visit Diagnosis:Tendonitis, Achilles, right [M76.61] Other Visit Diagnosis:Berenice's deformity, 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] Allergies As of Date: 01/28/2018 Noted Allergy Reaction SEASONAL ALLERGIES 01/30/2014 14 - Other: See Comments Comments: Cats, Cockroach, Dust mites, molds, weeds Date Reviewed: 01/11/2018 Reviewed by: Angela Talbot Ma - Fully Assessed Prescriptions as of 01/28/2018 Sig: VERAPAMIL ER (SR) 240 MG TABL* Take 0.5 tablets by mouth twi* METFORMIN ER 500 MG TABLET,EX* Take 1 tablet by mouth twice * MELOXICAM 7.5 MG TABLET Take 1 tablet by mouth once d* ATORVASTATIN 40 MG TABLET Take 1 tablet by mouth once d* GABAPENTIN 600 MG TABLET Take 1 tablet by mouth twice * HYDROXYCHLOROQUINE 200 MG TAB* Take 1 tablet by mouth twice * DIVALPROEX 500 MG TABLET,MANDIE* Take 2 tablets by mouth daily* LOSARTAN 25 MG TABLET Take 1 tablet by mouth once d* GLIMEPIRIDE 1 MG TABLET Take one with evening meal OMEPRAZOLE 20 MG CAPSULE,MANDIE* Take 1 capsule by mouth twice* [id number] * Use 3 Drops in the left ear f* Patient not taking: Reported on 10/15/2017 DICYCLOMINE 10 MG CAPSULE Take 1 capsule by mouth befor* CPAP New supplies needed, medicall* CHOLECALCIFEROL (VITAMIN D3) * Take 1 tablet by mouth once d* BLOOD-GLUCOSE METER KIT Glucose Meter of Choice - Kit* BLOOD SUGAR DIAGNOSTIC STRIPS Test blood sugar(s) 1x times * LANCETS Test blood sugar(s) 1x daily.* OLOPATADINE 0.1 % EYE DROPS Use 1 Drop in both eyes twice* Patient not taking: Reported on 10/15/2017 NITROGLYCERIN 0.4 MG SUBLINGU* Dissolve 1 tablet under the t* FLUTICASONE 50 MCG/ACTUATION * 2 sprays to each nostril once* * ASPIRIN 81 MG TABLET Take one(1) tablet daily. Progress Notes: Karuna Almanzar PT 01/31/2018 12:19 PM Signed Episode Visit Count: 6 Therapist That Will Oversee The Plan Of Care: Karuna Almanzar PT Start of Care Date: 01/05/18 Onset Date: 01/06/16 Plan of Care Certification Date: 01/05/18 Patient Identified by Name and Date of : Yes REHABILITATION AND SPORTS THERAPY PHYSICAL THERAPY TREATMENT NOTE ASSESSMENT: Lacy Alvarado demonstrated difficulty with stepping down her steps to exit her home this morning indicating she had intermittent 10/10 pain. Patient with no reports of pain during session. Progressed patient to using PWB with BAPS board and side stepping on foam. The patient will continue to benefit from continued skilled physical therapy for R achillies tendonitis. PLAN FOR NEXT VISIT: increase reps on BAPS board. Step ups on blue foam. Manual. US. POC update 02/04/18 SUBJECTIVE: Didn't have any hurt wearing the tape and small piece feel off. Didn't have any pain until stepped down from step this AM Pain Score: 10/10 Pain Location: Heel - Right Frequency: Intermittent (stepping down onto step exiting home) Post Treatment Pain Score: 0/10 Pain Location: Heel - Right OBJECTIVE MEASURES WITH LEVEL OF FUNCTION: Gait Gait Observation: Normal gait entering session TREATMENT: Therapeutic Exercise: 3: RIGHT Ankle DF/PF/Inv/Ever/Circles Cw/CW x20 each 4: RIGHT Ankle tracing A-Z 5: Weight Bearing Gastroc Stretch on RIGHT 30 sec, 2x 6: Weight Bearing Soleus Stretch on RIGHT 30 sec, 2x 9: Seated Right calf stretch with strap 30 sec, 3x 10: R toe scrunches 2x10 11: Step ups on green step (4) 1x12 leading with R and L 12: BAPS Board PWB Level 1 on the RIGHT: DF/PF, side to side, CW/CCW x10 of each 13: Side stepping on blue foam x4 with B UE support Skilled Intervention: Patient was educated in proper exercise technique and purpose for exercises. Skilled judgment was provided in selection of appropriate interventions. Manual Therapy: 1: Prone: IASTM with [employer] Scanner for 8 minutes to R achillies tendon 2: Kinesiotape to R achillies tendon with a piece of tape from base of heel to mid calf 25% stretch and then small piece horizontal with 25% stretch Skilled Intervention: Manual skills to improve joint mobility, ROM, and decrease pain. Utilized anatomy knowledge of the therapist, and assessment of patient's response to intervention. Modalities: Ultrasound Body Region Treated - Ultrasound: R achillies tendon Patient Position: prone Mode: 100% w/cm2: 1.5 MHZ: 1 Minutes: 10 See flowsheet for details regarding treatment. Skilled Intervention: Proper administration and selection of modality based on clinical presentation, deficits, and needs. Patient response monitored throughout treatment. Billing: [facility]: Therapeutic Exercise ([id number]): 1:1 time: 20 minutes (2 units: 23-37 mins) Manual Therapy ([id number]): 1:1 time: 12 minutes (1 unit: 8-22 mins) Modalities Ultrasound ([id number]) 1:1 time: 10 minutes1 unit: 8-22 mins Total time: 42 minutes Karuna Almanzar PT PROGRESS Observed: 01/27/2018 Status: COMPLETED Source: [place] 12:32 PM [facility] REPOSITORY O ID: [id number] Author: Karuna (Jacquie Almanzar Service: (none) Author Type: Physical Therapist Type: Progress Notes Filed: 01/27/2018 12:42 PM Note Text: Episode Visit Count: 5 Therapist That Will Oversee The Plan Of Care: Karuna Almanzar PT Start of Care Date: 01/05/18 Onset Date: 01/06/16 Plan of Care Certification Date: 01/05/18 Patient Identified by Name and Date of : Yes REHABILITATION AND SPORTS THERAPY PHYSICAL THERAPY TREATMENT NOTE ASSESSMENT: Lacy Alvarado demonstrated difficulty with set up for weight bearing gastroc and soleus stretches but once set up she had not problems. Tried [employer] scanner tool for IASTM and Kinesiotaping. Will assess at next session. The patient will continue to benefit from continued skilled physical therapy for thex ex, manual, and US for pain control of R heel pain. PLAN FOR NEXT VISIT: See how liked [employer] tools and kinesiotape; BAPS Board for Ankle ROM SUBJECTIVE: R heel is feeling ok today. Thursday wasn't feeling so good but today it is better. Tried to put on a pair of high heels on Thursday, but couldn't. Pain Score: 0/10 Pain Location: Heel - Right Frequency: Intermittent Post Treatment Pain Score: (patient didn't rate jusr stated felt like woke up heel) OBJECTIVE MEASURES WITH LEVEL OF FUNCTION: Arrived wearing sandals TREATMENT: Therapeutic Exercise: 3: RIGHT Ankle DF/PF/Inv/Ever/Circles Cw/CW x20 each 4: RIGHT Ankle tracing A-Z 5: Weight Bearing Gastroc Stretch on RIGHT 30 sec, 2x (cues for set up) 6: Weight Bearing Soleus Stretch on RIGHT 30 sec, 2x (cues for set up) 9: *Seated Right calf stretch with strap 30 sec, 3x 10: *R toe scrunches 2x10 11: Step ups on green step (4) 1x10 leading with R and L Skilled Intervention: Patient was educated in proper exercise technique and purpose for exercises. Reviewed and educated patient on additions/changes for home exercise program as above (*) Skilled judgment was provided in selection of appropriate interventions. Provided written instruction for home exercise program to facilitate proper performance and compliance. Correct performance of therapeutic exercises was facilitated with verbal, visual and tactile cuing. Manual Therapy: 1: Prone: IASTM with [employer] Scanner for 6 minutes to R achillies tendon 2: Kinesiotape to R achillies tendon with a piece of tape from base of heel to mid calf 25% stretch and then small piece horizontal with 25% stretch Skilled Intervention: Manual skills to improve joint mobility, ROM, and decrease pain. Utilized anatomy knowledge of the therapist, and assessment of patient's response to intervention. Patient educated on benefit of kinesiotape as well as wearing schedule and care. Modalities: Ultrasound Body Region Treated - Ultrasound: R achillies tendon Patient Position: prone Mode: 100% w/cm2: 1.5 MHZ: 1 Minutes: 10 See flowsheet for details regarding treatment. Skilled Intervention: Proper administration and selection of modality based on clinical presentation, deficits, and needs. Patient response monitored throughout treatment. Billing: [facility]: Therapeutic Exercise ([id number]): 1:1 time: 20 minutes (1 unit: 8-22 mins) Manual Therapy ([id number]): 1:1 time: 15 minutes (1 unit: 8-22 mins) Modalities Ultrasound ([id number]) 1:1 time: 10 minutes1 unit: 8-22 mins Total time: 45 minutes Karuna Almanzar PT CNTHERAPY Observed: 01/26/2018 Status: COMPLETED Source: [place] 7:00 AM [facility] REPOSITORY OT/PT/Speech Visit (PTWS) LACY ALVARADO ([id number]) 1950 F Date Time Provider Department 01/26/18 7:00 AM KARUNA ALMANZAR (PT) PTWS Date Time Provider Department Center 01/26/2018 7:00 AM [id number], DIANA (PT)PTWS [facility] Reason for Visit: Physical Therapy [503] Primary Visit Diagnosis:Tendonitis, Achilles, right [M76.61] Other Visit Diagnosis:Berenice's deformity, 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] Allergies As of Date: 01/26/2018 Noted Allergy Reaction SEASONAL ALLERGIES 01/30/2014 14 - Other: See Comments Comments: Cats, Cockroach, Dust mites, molds, weeds Date Reviewed: 01/11/2018 Reviewed by: Angela Talbot Ma - Fully Assessed Prescriptions as of 01/26/2018 Sig: VERAPAMIL ER (SR) 240 MG TABL* Take 0.5 tablets by mouth twi* METFORMIN ER 500 MG TABLET,EX* Take 1 tablet by mouth twice * MELOXICAM 7.5 MG TABLET Take 1 tablet by mouth once d* ATORVASTATIN 40 MG TABLET Take 1 tablet by mouth once d* GABAPENTIN 600 MG TABLET Take 1 tablet by mouth twice * HYDROXYCHLOROQUINE 200 MG TAB* Take 1 tablet by mouth twice * DIVALPROEX 500 MG TABLET,MANDIE* Take 2 tablets by mouth daily* LOSARTAN 25 MG TABLET Take 1 tablet by mouth once d* GLIMEPIRIDE 1 MG TABLET Take one with evening meal OMEPRAZOLE 20 MG CAPSULE,MANDIE* Take 1 capsule by mouth twice* [id number] * Use 3 Drops in the left ear f* Patient not taking: Reported on 10/15/2017 DICYCLOMINE 10 MG CAPSULE Take 1 capsule by mouth befor* CPAP New supplies needed, medicall* CHOLECALCIFEROL (VITAMIN D3) * Take 1 tablet by mouth once d* BLOOD-GLUCOSE METER KIT Glucose Meter of Choice - Kit* BLOOD SUGAR DIAGNOSTIC STRIPS Test blood sugar(s) 1x times * LANCETS Test blood sugar(s) 1x daily.* OLOPATADINE 0.1 % EYE DROPS Use 1 Drop in both eyes twice* Patient not taking: Reported on 10/15/2017 NITROGLYCERIN 0.4 MG SUBLINGU* Dissolve 1 tablet under the t* FLUTICASONE 50 MCG/ACTUATION * 2 sprays to each nostril once* * ASPIRIN 81 MG TABLET Take one(1) tablet daily. Progress Notes: Karuna Almanzar PT 01/27/2018 12:42 PM Signed Episode Visit Count: 5 Therapist That Will Oversee The Plan Of Care: Karuna Almanzar PT Start of Care Date: 01/05/18 Onset Date: 01/06/16 Plan of Care Certification Date: 01/05/18 Patient Identified by Name and Date of : Yes REHABILITATION AND SPORTS THERAPY PHYSICAL THERAPY TREATMENT NOTE ASSESSMENT: Lacy Alvarado demonstrated difficulty with set up for weight bearing gastroc and soleus stretches but once set up she had not problems. Tried [employer] scanner tool for IASTM and Kinesiotaping. Will assess at next session. The patient will continue to benefit from continued skilled physical therapy for thex ex, manual, and US for pain control of R heel pain. PLAN FOR NEXT VISIT: See how liked [employer] tools and kinesiotape; BAPS Board for Ankle ROM SUBJECTIVE: R heel is feeling ok today. Thursday wasn't feeling so good but today it is better. Tried to put on a pair of high heels on Thursday, but couldn't. Pain Score: 0/10 Pain Location: Heel - Right Frequency: Intermittent Post Treatment Pain Score: (patient didn't rate jusr stated felt like woke up heel) OBJECTIVE MEASURES WITH LEVEL OF FUNCTION: Arrived wearing sandals TREATMENT: Therapeutic Exercise: 3: RIGHT Ankle DF/PF/Inv/Ever/Circles Cw/CW x20 each 4: RIGHT Ankle tracing A-Z 5: Weight Bearing Gastroc Stretch on RIGHT 30 sec, 2x (cues for set up) 6: Weight Bearing Soleus Stretch on RIGHT 30 sec, 2x (cues for set up) 9: *Seated Right calf stretch with strap 30 sec, 3x 10: *R toe scrunches 2x10 11: Step ups on green step (4) 1x10 leading with R and L Skilled Intervention: Patient was educated in proper exercise technique and purpose for exercises. Reviewed and educated patient on additions/changes for home exercise program as above (*) Skilled judgment was provided in selection of appropriate interventions. Provided written instruction for home exercise program to facilitate proper performance and compliance. Correct performance of therapeutic exercises was facilitated with verbal, visual and tactile cuing. Manual Therapy: 1: Prone: IASTM with [employer] Scanner for 6 minutes to R achillies tendon 2: Kinesiotape to R achillies tendon with a piece of tape from base of heel to mid calf 25% stretch and then small piece horizontal with 25% stretch Skilled Intervention: Manual skills to improve joint mobility, ROM, and decrease pain. Utilized anatomy knowledge of the therapist, and assessment of patient's response to intervention. Patient educated on benefit of kinesiotape as well as wearing schedule and care. Modalities: Ultrasound Body Region Treated - Ultrasound: R achillies tendon Patient Position: prone Mode: 100% w/cm2: 1.5 MHZ: 1 Minutes: 10 See flowsheet for details regarding treatment. Skilled Intervention: Proper administration and selection of modality based on clinical presentation, deficits, and needs. Patient response monitored throughout treatment. Billing: [facility]: Therapeutic Exercise ([id number]): 1:1 time: 20 minutes (1 unit: 8-22 mins) Manual Therapy (12354): 1:1 time: 15 minutes (1 unit: 8-22 mins) Modalities Ultrasound ([id number]) 1:1 time: 10 minutes1 unit: 8-22 mins Total time: 45 minutes Karuna Almanzar PT PROGRESS Observed: 01/24/2018 Status: COMPLETED Source: [place] 6:49 AM [facility] REPOSITORY O ID: [id number] Author: Karuna (Pt) Jenelle Service: (none) Author Type: Physical Therapist Type: Progress Notes Filed: 01/24/2018 7:04 AM Note Text: Episode Visit Count: 4 Therapist That Will Oversee The Plan Of Care: Karuna Almanzar PT Start of Care Date: 01/05/18 Onset Date: 01/06/16 Plan of Care Certification Date: 01/05/18 Patient Identified by Name and Date of : Yes REHABILITATION AND SPORTS THERAPY PHYSICAL THERAPY TREATMENT NOTE ASSESSMENT: Lacy Alvarado demonstrated no change in R heel pain after session today. Will try Kinesiotaping at next visit to see if gets some relief. The patient will continue to benefit from continued skilled physical therapy for exercise, manual, and ultrasound for pain relief of R heel pain. PLAN FOR NEXT VISIT: Try Calf stretch with a sheet. Try Kinesotaping in lieu of IASTM: with foot flexion apply 25% stretch up the achilles. Cut a second piece 25% stretch over location patient feels achillies tendon pain. SUBJECTIVE: The new exercises caused her R foot to burn a little and then went away but would bother a little when walking but it is ok per patient. Patient will be getting her social security check Feb 03 and will get a new pair of shoes then. Yesterday the R heel was really bothering her due to walking a great deal in her sandals. Pain Score: 4/10 Pain Location: Heel - Right Description: Aching Frequency: Continuous OBJECTIVE MEASURES WITH LEVEL OF FUNCTION: Difficulty keeping R heel down during weight bearing gastroc stretch. Cues to keep down. TREATMENT: Therapeutic Exercise: 3: RIGHT Ankle DF/PF/Inv/Ever/Circles Cw/CW x20 each 4: RIGHT Ankle tracing A-Z 5: Weight Bearing Gastroc Stretch on RIGHT 30 sec, 2x 6: Weight Bearing Soleus Stretch on RIGHT 30 sec, 2x 7: Standing heel raises 2x10 with B UE support 8: Steated Heel/Toe Raises 2x10 Skilled Intervention: Patient was educated in proper exercise technique and purpose for exercises. Skilled judgment was provided in selection of appropriate interventions. Manual Therapy: 1: Prone: IASTM with PT hands for 8 minutes to R achillies tendon Skilled Intervention: Manual skills to improve joint mobility, ROM, and decrease pain. Utilized anatomy knowledge of the therapist, and assessment of patient's response to intervention. Modalities: Ultrasound Body Region Treated - Ultrasound: R achillies tendon Patient Position: prone Mode: 100% w/cm2: 1.5 MHZ: 1 Minutes: 15 See flowsheet for details regarding treatment. Skilled Intervention: Proper administration and selection of modality based on clinical presentation, deficits, and needs. Patient response monitored throughout treatment. Billing: [facility]: Therapeutic Exercise ([id number]): 1:1 time: 19 minutes (1 unit: 8-22 mins) Manual Therapy ([id number]): 1:1 time: 8 minutes (1 unit: 8-22 mins) Modalities Ultrasound ([id number]) 1:1 time: 15 minutes1 unit: 8-22 mins Total time: 42 minutes Karuna Almanzar PT CNTHERAPY Observed: 01/21/2018 Status: COMPLETED Source: [place] 7:45 AM [facility] REPOSITORY OT/PT/Speech Visit (PTWS) LACY ALVARADO ([id number]) 1950 F Date Time Provider Department 01/21/18 7:45 AM KARUNA ALMANZARPT) PTWS Date Time Provider Department Center 01/21/2018 7:45 AM [id number], DIANA (PT)PTWS [facility] Reason for Visit: Physical Therapy [503] Primary Visit Diagnosis:Tendonitis, Achilles, right [M76.61] Other Visit Diagnosis:Berenice's deformity, 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] Allergies As of Date: 01/21/2018 Noted Allergy Reaction SEASONAL ALLERGIES 01/30/2014 14 - Other: See Comments Comments: Cats, Cockroach, Dust mites, molds, weeds Date Reviewed: 01/11/2018 Reviewed by: Angela Talbot Ma - Fully Assessed Prescriptions as of 01/21/2018 Sig: VERAPAMIL ER (SR) 240 MG TABL* Take 0.5 tablets by mouth twi* METFORMIN ER 500 MG TABLET,EX* Take 1 tablet by mouth twice * MELOXICAM 7.5 MG TABLET Take 1 tablet by mouth once d* ATORVASTATIN 40 MG TABLET Take 1 tablet by mouth once d* GABAPENTIN 600 MG TABLET Take 1 tablet by mouth twice * HYDROXYCHLOROQUINE 200 MG TAB* Take 1 tablet by mouth twice * DIVALPROEX 500 MG TABLET,MANDIE* Take 2 tablets by mouth daily* LOSARTAN 25 MG TABLET Take 1 tablet by mouth once d* GLIMEPIRIDE 1 MG TABLET Take one with evening meal OMEPRAZOLE 20 MG CAPSULE,MANDIE* Take 1 capsule by mouth twice* [id number] * Use 3 Drops in the left ear f* Patient not taking: Reported on 10/15/2017 DICYCLOMINE 10 MG CAPSULE Take 1 capsule by mouth befor* CPAP New supplies needed, medicall* CHOLECALCIFEROL (VITAMIN D3) * Take 1 tablet by mouth once d* BLOOD-GLUCOSE METER KIT Glucose Meter of Choice - Kit* BLOOD SUGAR DIAGNOSTIC STRIPS Test blood sugar(s) 1x times * LANCETS Test blood sugar(s) 1x daily.* OLOPATADINE 0.1 % EYE DROPS Use 1 Drop in both eyes twice* Patient not taking: Reported on 10/15/2017 NITROGLYCERIN 0.4 MG SUBLINGU* Dissolve 1 tablet under the t* FLUTICASONE 50 MCG/ACTUATION * 2 sprays to each nostril once* * ASPIRIN 81 MG TABLET Take one(1) tablet daily. Progress Notes: Karuna Almanzar PT 01/24/2018 7:04 AM Signed Episode Visit Count: 4 Therapist That Will Oversee The Plan Of Care: Karuna Almanzar PT Start of Care Date: 01/05/18 Onset Date: 01/06/16 Plan of Care Certification Date: 01/05/18 Patient Identified by Name and Date of : Yes REHABILITATION AND SPORTS THERAPY PHYSICAL THERAPY TREATMENT NOTE ASSESSMENT: Lacy Alvarado demonstrated no change in R heel pain after session today. Will try Kinesiotaping at next visit to see if gets some relief. The patient will continue to benefit from continued skilled physical therapy for exercise, manual, and ultrasound for pain relief of R heel pain. PLAN FOR NEXT VISIT: Try Calf stretch with a sheet. Try Kinesotaping in lieu of IASTM: with foot flexion apply 25% stretch up the achilles. Cut a second piece 25% stretch over location patient feels achillies tendon pain. SUBJECTIVE: The new exercises caused her R foot to burn a little and then went away but would bother a little when walking but it is ok per patient. Patient will be getting her social security check Feb 03 and will get a new pair of shoes then. Yesterday the R heel was really bothering her due to walking a great deal in her sandals. Pain Score: 4/10 Pain Location: Heel - Right Description: Aching Frequency: Continuous OBJECTIVE MEASURES WITH LEVEL OF FUNCTION: Difficulty keeping R heel down during weight bearing gastroc stretch. Cues to keep down. TREATMENT: Therapeutic Exercise: 3: RIGHT Ankle DF/PF/Inv/Ever/Circles Cw/CW x20 each 4: RIGHT Ankle tracing A-Z 5: Weight Bearing Gastroc Stretch on RIGHT 30 sec, 2x 6: Weight Bearing Soleus Stretch on RIGHT 30 sec, 2x 7: Standing heel raises 2x10 with B UE support 8: Steated Heel/Toe Raises 2x10 Skilled Intervention: Patient was educated in proper exercise technique and purpose for exercises. Skilled judgment was provided in selection of appropriate interventions. Manual Therapy: 1: Prone: IASTM with PT hands for 8 minutes to R achillies tendon Skilled Intervention: Manual skills to improve joint mobility, ROM, and decrease pain. Utilized anatomy knowledge of the therapist, and assessment of patient's response to intervention. Modalities: Ultrasound Body Region Treated - Ultrasound: R achillies tendon Patient Position: prone Mode: 100% w/cm2: 1.5 MHZ: 1 Minutes: 15 See flowsheet for details regarding treatment. Skilled Intervention: Proper administration and selection of modality based on clinical presentation, deficits, and needs. Patient response monitored throughout treatment. Billing: [facility]: Therapeutic Exercise ([id number]): 1:1 time: 19 minutes (1 unit: 8-22 mins) Manual Therapy ([id number]): 1:1 time: 8 minutes (1 unit: 8-22 mins) Modalities Ultrasound ([id number]) 1:1 time: 15 minutes1 unit: 8-22 mins Total time: 42 minutes Karuna AlmanzarSARAH DEXA BONE DENSITY Observed: 01/13/2018 Status: F Source: [place] STUDY 8:34 AM [facility] REPOSITORY [facility] Imaging Services [address] [place] [address] Dexa Bone Density Study MR#: [id number] Acct: [id number] Name: LACY ALVARADO Rep #: [id number] : 1950 F 67 From: Tor Artis MD PCP: Mayda Garcia MD Status: REG CL Study: Dexa Bone Density Study Date of Exam: 01/13/18 Exam# [id number] Ordering Dr: Mayda Garcia MD STUDY: DUAL ENERGY X-RAY ABSORPTIOMETRY / DXA REASON FOR EXAM: Female, 67 years old. The patient is postmenopausal. No loss of height. TECHNIQUE: Bone Mineral Density (BMD) measurements of lumbar spine and bilateral hips were obtained. COMPARISON: None. FINDINGS: Lumbar Spine (L1-L4): g/cm2 (0.914) / T-score (-2.2) / Z-score (-1.3) Findings are suggestive of osteopenia with a moderate fracture risk. Left Femur Total: g/cm2 (0.951) / T-score (-0.5) / Z- score (-0.2) Left Femoral Neck: g/cm2 (0.897) / T-score (-1.0) / Z- score (0.5) Right Femur Total: g/cm2 (0.852) / T-score (-1.2) / Z- score (-1.0) Right Femoral Neck: g/cm2 (0.800) / T-score (-1.7) / Z-score (-1.2) BD/Dexa Bone Density Study IMPRESSION: The patient is considered osteopenic as outlined below according to World [employer] Organization (WHO) criteria with a moderate fracture risk. Reference Information: The T-score is the number of standard deviations above or below the standard which is normal for young adults at their peak bone mineral density. The World Health Organization (WHO) interprets the T-scores as follows: Above -1 Normal bone density Between -1 and -2.5 Osteopenia Equal to / or below -2.5 Osteoporosis As a practical clinical guideline, osteopenia may be graded as follows: Mild -1 through -1.5 Moderate -1.6 through -2.0 Severe -2.1 through -2.4 The Z-score is the number of standard deviations above or below age-matched controls. A Z-score of less than -1.5 would be considered abnormal. References: 1. NIH Osteoporosis and Related Bone Diseases http://www.osteo.org 2. International Society for Clinical Densitometry http://www.iscd.org 3. National Osteoporosis Foundation http://www.nof.org Electronically Signed: Tor Artis MD at 13:29 EDT Tel [phone], Service support , CC: Mayda Garcia MD Yarn Texturing Machine Operator: Signed PROGRESS Observed: 01/12/2018 Status: COMPLETED Source: [place] 7:58 AM [facility] [place] REPOSITORY [facility] ID: [id number] Author: Karuna (Pt) Jenelle Service: (none) Author Type: Physical Therapist Type: Progress Notes Filed: 01/12/2018 8:04 AM Note Text: Episode Visit Count: 3 Therapist That Will Oversee The Plan Of Care: Karuna Almanzar PT Start of Care Date: 01/05/18 Onset Date: 01/06/16 Plan of Care Certification Date: 01/05/18 Patient Identified by Name and Date of : Yes REHABILITATION AND SPORTS THERAPY PHYSICAL THERAPY TREATMENT NOTE ASSESSMENT: Lacy Alvarado demonstrated improvements in R heel pain after exercise, manual, and US. The patient will continue to benefit from continued skilled physical therapy for ther ex, manual, and ultrasound for pain relief. PLAN FOR NEXT VISIT: see how exercises are going; increase reps, manual, US SUBJECTIVE: Dr. Flores advised no injection due to weaking the achillies tendon. Was given heel lifts and needs to get tennis shoes. For Thursday she wore flat shoes and was fine. Walking increases the pain of her R heel. Pain Score: 6/10 Pain Location: Heel - Right Description: Aching Frequency: Continuous Post Treatment Pain Score: 2/10 Pain Location: Hip - Left OBJECTIVE MEASURES WITH LEVEL OF FUNCTION: Arrived wearing sandals TREATMENT: Therapeutic Exercise: 3: RIGHT Ankle DF/PF/Inv/Ever/Circles x15 each 4: *RIGHT Ankle tracing A-Z 5: *Weight Bearing Gastroc Stretch on RIGHT 30 sec, 2x 6: *Weight Bearing Soleus Stretch on RIGHT 30 sec, 2x 7: *Standing heel raises x10 with B UE support 8: *Steated Heel/Toe Raises 2x10 Skilled Intervention: Patient was educated in proper exercise technique and purpose for exercises. Reviewed and educated patient on additions/changes for home exercise program as above (*) Skilled judgment was provided in selection of appropriate interventions. Manual Therapy: 1: Prone: IASTM with PT hands for 8 minutes to R achillies tendon Skilled Intervention: Manual skills to improve joint mobility, ROM, and decrease pain. Utilized anatomy knowledge of the therapist, and assessment of patient's response to intervention. Modalities: Ultrasound Body Region Treated - Ultrasound: R achillies tendon Patient Position: prone Mode: 100% w/cm2: 1.5 MHZ: 1 Minutes: 15 See flowsheet for details regarding treatment. Skilled Intervention: Proper administration and selection of modality based on clinical presentation, deficits, and needs. Patient response monitored throughout treatment. Billing: [facility]: Therapeutic Exercise ([id number]): 1:1 time: 20 minutes (1 unit: 8-22 mins) Manual Therapy ([id number]): 1:1 time: 8 minutes (1 unit: 8-22 mins) Modalities Ultrasound ([id number]) 1:1 time: 15 minutes1 unit: 8-22 mins Total time: 43 minutes Karuna Almanzar PT CNTHERAPY Observed: 01/12/2018 Status: COMPLETED Source: [place] 7:00 AM [facility] REPOSITORY OT/PT/Speech Visit (PTWS) LACY ALVARADO ([id number]) 1950 F Date Time Provider Department 01/12/18 7:00 AM KARUNA ALMANZAR (PT) PTWS Date Time Provider Department Center 01/12/2018 7:00 AM [id number], DIANA (PT)PTWS [facility] Reason for Visit: Physical Therapy [503] Primary Visit Diagnosis:Tendonitis, Achilles, right [M76.61] Other Visit Diagnosis:Berenice's deformity, 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] Allergies As of Date: 01/12/2018 Noted Allergy Reaction SEASONAL ALLERGIES 01/30/2014 14 - Other: See Comments Comments: Cats, Cockroach, Dust mites, molds, weeds Date Reviewed: 01/11/2018 Reviewed by: Angela Talbot Ma - Fully Assessed Prescriptions as of 01/12/2018 Sig: VERAPAMIL ER (SR) 240 MG TABL* Take 0.5 tablets by mouth twi* METFORMIN ER 500 MG TABLET,EX* Take 1 tablet by mouth twice * MELOXICAM 7.5 MG TABLET Take 1 tablet by mouth once d* ATORVASTATIN 40 MG TABLET Take 1 tablet by mouth once d* GABAPENTIN 600 MG TABLET Take 1 tablet by mouth twice * HYDROXYCHLOROQUINE 200 MG TAB* Take 1 tablet by mouth twice * DIVALPROEX 500 MG TABLET,MANDIE* Take 2 tablets by mouth daily* LOSARTAN 25 MG TABLET Take 1 tablet by mouth once d* GLIMEPIRIDE 1 MG TABLET Take one with evening meal OMEPRAZOLE 20 MG CAPSULE,MANDIE* Take 1 capsule by mouth twice* [id number] * Use 3 Drops in the left ear f* Patient not taking: Reported on 10/15/2017 DICYCLOMINE 10 MG CAPSULE Take 1 capsule by mouth befor* CPAP New supplies needed, medicall* CHOLECALCIFEROL (VITAMIN D3) * Take 1 tablet by mouth once d* BLOOD-GLUCOSE METER KIT Glucose Meter of Choice - Kit* BLOOD SUGAR DIAGNOSTIC STRIPS Test blood sugar(s) 1x times * LANCETS Test blood sugar(s) 1x daily.* OLOPATADINE 0.1 % EYE DROPS Use 1 Drop in both eyes twice* Patient not taking: Reported on 10/15/2017 NITROGLYCERIN 0.4 MG SUBLINGU* Dissolve 1 tablet under the t* FLUTICASONE 50 MCG/ACTUATION * 2 sprays to each nostril once* * ASPIRIN 81 MG TABLET Take one(1) tablet daily. Progress Notes: Karuna Almanzar PT 01/12/2018 8:04 AM Signed Episode Visit Count: 3 Therapist That Will Oversee The Plan Of Care: Karuna Almanzar PT Start of Care Date: 01/05/18 Onset Date: 01/06/16 Plan of Care Certification Date: 01/05/18 Patient Identified by Name and Date of : Yes REHABILITATION AND SPORTS THERAPY PHYSICAL THERAPY TREATMENT NOTE ASSESSMENT: Lacy Alvarado demonstrated improvements in R heel pain after exercise, manual, and US. The patient will continue to benefit from continued skilled physical therapy for ther ex, manual, and ultrasound for pain relief. PLAN FOR NEXT VISIT: see how exercises are going; increase reps, manual, US SUBJECTIVE: Dr. Flores advised no injection due to weaking the achillies tendon. Was given heel lifts and needs to get tennis shoes. For Thursday she wore flat shoes and was fine. Walking increases the pain of her R heel. Pain Score: 6/10 Pain Location: Heel - Right Description: Aching Frequency: Continuous Post Treatment Pain Score: 2/10 Pain Location: Hip - Left OBJECTIVE MEASURES WITH LEVEL OF FUNCTION: Arrived wearing sandals TREATMENT: Therapeutic Exercise: 3: RIGHT Ankle DF/PF/Inv/Ever/Circles x15 each 4: *RIGHT Ankle tracing A-Z 5: *Weight Bearing Gastroc Stretch on RIGHT 30 sec, 2x 6: *Weight Bearing Soleus Stretch on RIGHT 30 sec, 2x 7: *Standing heel raises x10 with B UE support 8: *Steated Heel/Toe Raises 2x10 Skilled Intervention: Patient was educated in proper exercise technique and purpose for exercises. Reviewed and educated patient on additions/changes for home exercise program as above (*) Skilled judgment was provided in selection of appropriate interventions. Manual Therapy: 1: Prone: IASTM with PT hands for 8 minutes to R achillies tendon Skilled Intervention: Manual skills to improve joint mobility, ROM, and decrease pain. Utilized anatomy knowledge of the therapist, and assessment of patient's response to intervention. Modalities: Ultrasound Body Region Treated - Ultrasound: R achillies tendon Patient Position: prone Mode: 100% w/cm2: 1.5 MHZ: 1 Minutes: 15 See flowsheet for details regarding treatment. Skilled Intervention: Proper administration and selection of modality based on clinical presentation, deficits, and needs. Patient response monitored throughout treatment. Billing: [facility]: Therapeutic Exercise ([id number]): 1:1 time: 20 minutes (1 unit: 8-22 mins) Manual Therapy ([id number]): 1:1 time: 8 minutes (1 unit: 8-22 mins) Modalities Ultrasound ([id number]) 1:1 time: 15 minutes1 unit: 8-22 mins Total time: 43 minutes Karuna Almanzar PT PROGRESS Observed: 01/11/2018 Status: COMPLETED Source: [place] 9:13 AM [facility] REPOSITORY O ID: [id number] Author: Mynor Flores Service: (none) Author Type: Physician Type: Progress Notes Filed: 01/11/2018 9:48 AM Note Text: ? Mynor Flores DPM Department of Podiatry [address] [facility] [address] Dept: [phone] Dept 01/11/2018 Follow Up Podiatric Office Visit: HPI: Lacy Alvarado is a 67 year old female. Patient presents to discuss options for Tere Randhawa. She has constant pain to R heel that is achy with intermittent burning. She just started physical therapy last week and is coming along. She had vascular studies on 12/17/17 showing normal blood flow. Patient did not check blood sugar today. Mynor Flores DPM PCP: Mayda Garcia MD PAST MEDICAL HISTORY Diagnosis Date - Allergic rhinitis 02/06/2009 - Alopecia, unspecified 11/18/2005 - Blepharitis, unspecified 09/13/2007 - CAD (coronary artery disease) 11/24/200711/2007 CT angio-Nonobstructive CAD, <50% lesions in LAD and circ - Chest pain, unspecified - Diabetic - Epilepsy (HCC) 02/06/2009 since childhood - Epilepsy (HCC) - Hypersomnia, unspecified 09/26/2005 - Hypertension - Internal hemorrhoids 04/11/2015 - Iron deficiency anemia secondary to blood loss (chronic) 03/13/2004 - Lipoma of unspecified site 12/30/2007 - Obstructive sleep apnea - Osteopenia 02/06/2009 BMD done ? - Other and unspecified hyperlipidemia 02/06/2009 - Persistent disorder of initiating or maintaining sleep 08/31/2005 - Rheumatoid arthritis(714.0) - Seizures (HCC) - Snoring - Type II or unspecified type diabetes mellitus without mention of complication, not stated as uncontrolled 2007 - Varicose veins of leg with complications 11/29/2007 - Vitamin D deficiency 02/06/2009 Current Outpatient Prescriptions: verapamil SR (CALAN SR, ISOPTIN SR) 240 mg CR tablet Take 0.5 tablets by mouth twice daily. metFORMIN ER (GLUCOPHAGE XR) 500 mg 24 hr tablet Take 1 tablet by mouth twice daily before meals. meloxicam (MOBIC) 7.5 mg tablet Take 1 tablet by mouth once daily. atorvastatin (LIPITOR) 40 mg tablet Take 1 tablet by mouth once daily. gabapentin (NEURONTIN) 600 mg tablet Take 1 tablet by mouth twice daily. hydroxychloroquine (PLAQUENIL) 200 mg tablet Take 1 tablet by mouth twice daily. divalproex DR (DEPAKOTE) 500 mg EC tablet Take 2 tablets by mouth daily at bedtime. losartan (COZAAR) 25 mg tablet Take 1 tablet by mouth once daily. glimepiride (AMARYL) 1 mg tablet Take one with evening meal omeprazole (PRILOSEC) 20 mg capsule Take 1 capsule by mouth twice daily. nwfdsuql-jbvxrfpsl-arjgrwbgdklopv (CORTISPORIN) otic solution Use 3 Drops in the left ear four times daily. (Patient not taking: Reported on 10/15/2017 ) dicyclomine (BENTYL) 10 mg capsule Take 1 capsule by mouth before meals and at bedtime. CPAP New supplies needed, medically necessary. Mask refitting please. autoPAP 8-15 cmH2O, mask, tubing, filters, heated humidity, lifetime supplies. Dx: LINA cholecalciferol (VITAMIN D3) 2,000 unit tablet Take 1 tablet by mouth once daily. Blood-Glucose Meter monitoring kit Glucose Meter of Choice - Kit - Dx: Type 2 DM - Controlled E11.9 blood sugar diagnostic (BLOOD GLUCOSE TEST) test strip Test blood sugar(s) 1x times daily. Dx: Type 2 DM - Controlled E11.9 Insulin: No Lancets lancets Test blood sugar(s) 1x daily. Dx: E11.9. Insulin: No olopatadine (PATANOL) 0.1 % ophthalmic solution Use 1 Drop in both eyes twice daily as needed for Cold/Allergy Symptoms. (Patient not taking: Reported on 10/15/2017 ) nitroglycerin sublingual (NITROSTAT) 0.4 mg SL tablet Dissolve 1 tablet under the tongue as needed. FOR CHEST PAIN. IF NO RELIEF CALL 911 fluticasone (FLONASE) 50 mcg/actuation nasal spray 2 sprays to each nostril once to two times daily. ASPIRIN 81 MG TAB Take one(1) tablet daily. No current facility-administered medications for this visit. ALLERGIES Allergen Reactions - Seasonal Allergies Other: See Comments Cats, Cockroach, Dust mites, molds, weeds PAST SURGICAL HISTORY Procedure Laterality Date - DELIVERY ONLY , low transverse - COLONOSCOP W/ OR W/O [facility] SPEC 01/12/2013 Colonoscopy - EGD W/O OR W/BRUSH/WASH 07/16/15 EGD - HYSTERECTOMY HX 2006 Hysterectomy, supracervical - KNEE SCOPE,DIAGNOSTIC Left 1997 Arthroscopy, knee - PAST SURGICAL HISTORY OF 2011 trigger finger release - PAST SURGICAL HISTORY OF 7-25-14 6 days post right 1st dorsal compartment release FAMILY HISTORY Problem Relation Age of Onset - Adopted: Yes - Diabetes Mother With multiple complications, ?possible clotting problem - other (Unknown) Father - Cancer Maternal Grandmother ?Cervical - Glaucoma Sister - other (Uknown) Brother - other (Unknown) Brother - other (Unknown) Brother 1 brother from HIV - other (Unknown) Sister - other (Unknown) Sister Social History Marital status: Single Spouse name: Years of education: Number of children: Occupational History 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 EYES: No diplopia or blurry vision. CARDIOVASCULAR: No chest pain, dyspnea, palpitations, orthopnea, PND, ankle edema. PULM: No dyspnea, unexplained cough. GI: No dysphagia/odynophagia, problematic reflux, constipation, diarrhea, changes in stool habits, hematochezia, melena. : No new urinary complaints, including dysuria, gross hematuria or pyuria. NEURO: No new balance problems, peripheral weakness/paresthesias or numbness of concern. MUSC-SKEL: Right posterior heel pain PSY: No concerns regarding depression, anxiety or panic. INTEGUMENTARY: No new skin changes (rash, new or changing mole, new growth) Physical Exam: Constitutional: Pt is a well developed 67 year old female who is alert, oriented and cooperative Eyes: Following during examination. No redness or drainage. Respiratory: RR normal and nonlabored. Even breathing. No evidence of distress or shortness of breath. Psychology: Patient is engaged during conversation. Normal affect and mood. Does not appear depressed or anxious during encounter. Vascular: Dorsalis pedis and posterior tibial pulses palpable as b/l Capillary Fill time < 5 seconds to digits 1-5 b/l Skin temperature warm to warm proximal to distal b/l Hair growth present to digits Neurological: intact light touch/epicritic sensation Dermatological: Nails 1-5 b/l appear Normal. Webspaces clean and dry 1-4 b/l. Skin appears well hydrated and supple. good color, texture, turgor. Callosities absent.Open lesions absent. Wound: Not present. Musculoskeletal/Orthopaedic: Patient has pain to palpation of right posterior heel at site of posterior heel spur Foot type is neutral structurally AJ ROM is full with knee extended and flexed 1st MPJ is full when loaded and no pain or crepitus are noted with ROM. MTJ, STJ are full and free of pain and crepitus. +5/5 muscle strength dorsiflexion, plantarflexion, inversion, eversion b/l Radiographs: 3 views of past xray reviewed. 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 History and physical examination performed. 2. Patient was examined and informed of current findings 3. She has posterior heel spur for which she wishes to continue with physical therapy and heel lifts. If pain does not improve, she would consider spur resection. 4. Discussed steroid injection as she questions if this is an option. I would not recommend steroid injection to posterior heel. Steroid injection to posterior heel can risk rupture to achilles. 5. She will continue with conservative care. If this does not improve, she will consider surgery. 6. F/u in 6 weeks Mynor Flores DPM CNOV Observed: 01/11/2018 Status: COMPLETED Source: [place] 9:10 AM [facility] REPOSITORY Office Visit (PODIWS) LACY ALVARADO ([id number]) 1950 F Date Time Provider Department 01/11/18 9:10 AM MYNOR FLORES During your visit today, we recorded the following information about you: Mynor Flores DPM 01/11/2018 9:48 AM Signed ? Mynor Flores DPM Department of Podiatry [address] [facility] [address] Dept: [phone] Dept 01/11/2018 Follow Up Podiatric Office Visit: HPI: Lacy Alvarado is a 67 year old female. Patient presents to discuss options for Tere Randhawa. She has constant pain to R heel that is achy with intermittent burning. She just started physical therapy last week and is coming along. She had vascular studies on 12/17/17 showing normal blood flow. Patient did not check blood sugar today. Mynor Flores DPM PCP: Mayda Garcia MD PAST MEDICAL HISTORY Diagnosis Date - Allergic rhinitis 02/06/2009 - Alopecia, unspecified 11/18/2005 - Blepharitis, unspecified 09/13/2007 - CAD (coronary artery disease) 11/24/200711/2007 CT angio-Nonobstructive CAD, <50% lesions in LAD and circ - Chest pain, unspecified - Diabetic - Epilepsy (HCC) 02/06/2009 since childhood - Epilepsy (HCC) - Hypersomnia, unspecified 09/26/2005 - Hypertension - Internal hemorrhoids 04/11/2015 - Iron deficiency anemia secondary to blood loss (chronic) 03/13/2004 - Lipoma of unspecified site 12/30/2007 - Obstructive sleep apnea - Osteopenia 02/06/2009 BMD done ? - Other and unspecified hyperlipidemia 02/06/2009 - Persistent disorder of initiating or maintaining sleep 08/31/2005 - Rheumatoid arthritis(714.0) - Seizures (HCC) - Snoring - Type II or unspecified type diabetes mellitus without mention of complication, not stated as uncontrolled 2007 - Varicose veins of leg with complications 11/29/2007 - Vitamin D deficiency 02/06/2009 Current Outpatient Prescriptions: verapamil SR (CALAN SR, ISOPTIN SR) 240 mg CR tablet Take 0.5 tablets by mouth twice daily. metFORMIN ER (GLUCOPHAGE XR) 500 mg 24 hr tablet Take 1 tablet by mouth twice daily before meals. meloxicam (MOBIC) 7.5 mg tablet Take 1 tablet by mouth once daily. atorvastatin (LIPITOR) 40 mg tablet Take 1 tablet by mouth once daily. gabapentin (NEURONTIN) 600 mg tablet Take 1 tablet by mouth twice daily. hydroxychloroquine (PLAQUENIL) 200 mg tablet Take 1 tablet by mouth twice daily. divalproex DR (DEPAKOTE) 500 mg EC tablet Take 2 tablets by mouth daily at bedtime. losartan (COZAAR) 25 mg tablet Take 1 tablet by mouth once daily. glimepiride (AMARYL) 1 mg tablet Take one with evening meal omeprazole (PRILOSEC) 20 mg capsule Take 1 capsule by mouth twice daily. jlcpjpha-xizlhgtbj-rrlzkfwsuefmbk (CORTISPORIN) otic solution Use 3 Drops in the left ear four times daily. (Patient not taking: Reported on 10/15/2017 ) dicyclomine (BENTYL) 10 mg capsule Take 1 capsule by mouth before meals and at bedtime. CPAP New supplies needed, medically necessary. Mask refitting please. autoPAP 8-15 cmH2O, mask, tubing, filters, heated humidity, lifetime supplies. Dx: LINA cholecalciferol (VITAMIN D3) 2,000 unit tablet Take 1 tablet by mouth once daily. Blood-Glucose Meter monitoring kit Glucose Meter of Choice - Kit - Dx: Type 2 DM - Controlled E11.9 blood sugar diagnostic (BLOOD GLUCOSE TEST) test strip Test blood sugar(s) 1x times daily. Dx: Type 2 DM - Controlled E11.9 Insulin: No Lancets lancets Test blood sugar(s) 1x daily. Dx: E11.9. Insulin: No olopatadine (PATANOL) 0.1 % ophthalmic solution Use 1 Drop in both eyes twice daily as needed for Cold/Allergy Symptoms. (Patient not taking: Reported on 10/15/2017 ) nitroglycerin sublingual (NITROSTAT) 0.4 mg SL tablet Dissolve 1 tablet under the tongue as needed. FOR CHEST PAIN. IF NO RELIEF CALL 911 fluticasone (FLONASE) 50 mcg/actuation nasal spray 2 sprays to each nostril once to two times daily. ASPIRIN 81 MG TAB Take one(1) tablet daily. No current facility-administered medications for this visit. ALLERGIES Allergen Reactions - Seasonal Allergies Other: See Comments Cats, Cockroach, Dust mites, molds, weeds PAST SURGICAL HISTORY Procedure Laterality Date - DELIVERY ONLY , low transverse - COLONOSCOP W/ OR W/O [facility] SPEC 01/12/2013 Colonoscopy - EGD W/O OR W/BRUSH/WASH 07/16/15 EGD - HYSTERECTOMY HX 2006 Hysterectomy, supracervical - KNEE SCOPE,DIAGNOSTIC Left 1997 Arthroscopy, knee - PAST SURGICAL HISTORY OF 2011 trigger finger release - PAST SURGICAL HISTORY OF -25-14 6 days post right 1st dorsal compartment release FAMILY HISTORY Problem Relation Age of Onset - Adopted: Yes - Diabetes Mother With multiple complications, ?possible clotting problem - other (Unknown) Father - Cancer Maternal Grandmother ?Cervical - Glaucoma Sister - other (Uknown) Brother - other (Unknown) Brother - other (Unknown) Brother 1 brother from HIV - other (Unknown) Sister - other (Unknown) Sister Social History Marital status: Single Spouse name: Years of education: Number of children: Occupational History 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 EYES: No diplopia or blurry vision. CARDIOVASCULAR: No chest pain, dyspnea, palpitations, orthopnea, PND, ankle edema. PULM: No dyspnea, unexplained cough. GI: No dysphagia/odynophagia, problematic reflux, constipation, diarrhea, changes in stool habits, hematochezia, melena. : No new urinary complaints, including dysuria, gross hematuria or pyuria. NEURO: No new balance problems, peripheral weakness/paresthesias or numbness of concern. MUSC-SKEL: Right posterior heel pain PSY: No concerns regarding depression, anxiety or panic. INTEGUMENTARY: No new skin changes (rash, new or changing mole, new growth) Physical Exam: Constitutional: Pt is a well developed 67 year old female who is alert, oriented and cooperative Eyes: Following during examination. No redness or drainage. Respiratory: RR normal and nonlabored. Even breathing. No evidence of distress or shortness of breath. Psychology: Patient is engaged during conversation. Normal affect and mood. Does not appear depressed or anxious during encounter. Vascular: Dorsalis pedis and posterior tibial pulses palpable as b/l Capillary Fill time < 5 seconds to digits 1-5 b/l Skin temperature warm to warm proximal to distal b/l Hair growth present to digits Neurological: intact light touch/epicritic sensation Dermatological: Nails 1-5 b/l appear Normal. Webspaces clean and dry 1-4 b/l. Skin appears well hydrated and supple. good color, texture, turgor. Callosities absent.Open lesions absent. Wound: Not present. Musculoskeletal/Orthopaedic: Patient has pain to palpation of right posterior heel at site of posterior heel spur Foot type is neutral structurally AJ ROM is full with knee extended and flexed 1st MPJ is full when loaded and no pain or crepitus are noted with ROM. MTJ, STJ are full and free of pain and crepitus. +5/5 muscle strength dorsiflexion, plantarflexion, inversion, eversion b/l Radiographs: 3 views of past xray reviewed. 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 History and physical examination performed. 2. Patient was examined and informed of current findings 3. She has posterior heel spur for which she wishes to continue with physical therapy and heel lifts. If pain does not improve, she would consider spur resection. 4. Discussed steroid injection as she questions if this is an option. I would not recommend steroid injection to posterior heel. Steroid injection to posterior heel can risk rupture to achilles. 5. She will continue with conservative care. If this does not improve, she will consider surgery. 6. F/u in 6 weeks Mynor Flores DPM Referring Provider: MYNOR FLORES [[id number]] Allergies As of Date: 01/11/2018 Noted Allergy Reaction SEASONAL ALLERGIES 01/30/2014 14 - Other: See Comments Comments: Cats, Cockroach, Dust mites, molds, weeds Date Reviewed: 01/11/2018 Reviewed by: Angela Talbot Ma - Fully Assessed Reason for Visit: Follow Up [171] Primary Visit Diagnosis:Berenice's deformity, 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] Other Visit Diagnosis:Tendonitis, Achilles, right [M76.61] Prescriptions as of 01/11/2018 Sig: VERAPAMIL ER (SR) 240 MG TABL* Take 0.5 tablets by mouth twi* METFORMIN ER 500 MG TABLET,EX* Take 1 tablet by mouth twice * MELOXICAM 7.5 MG TABLET Take 1 tablet by mouth once d* ATORVASTATIN 40 MG TABLET Take 1 tablet by mouth once d* GABAPENTIN 600 MG TABLET Take 1 tablet by mouth twice * HYDROXYCHLOROQUINE 200 MG TAB* Take 1 tablet by mouth twice * DIVALPROEX 500 MG TABLET,MANDIE* Take 2 tablets by mouth daily* LOSARTAN 25 MG TABLET Take 1 tablet by mouth once d* GLIMEPIRIDE 1 MG TABLET Take one with evening meal OMEPRAZOLE 20 MG CAPSULE,MANDIE* Take 1 capsule by mouth twice* [id number] * Use 3 Drops in the left ear f* Patient not taking: Reported on 10/15/2017 DICYCLOMINE 10 MG CAPSULE Take 1 capsule by mouth befor* CPAP New supplies needed, medicall* CHOLECALCIFEROL (VITAMIN D3) * Take 1 tablet by mouth once d* BLOOD-GLUCOSE METER KIT Glucose Meter of Choice - Kit* BLOOD SUGAR DIAGNOSTIC STRIPS Test blood sugar(s) 1x times * LANCETS Test blood sugar(s) 1x daily.* OLOPATADINE 0.1 % EYE DROPS Use 1 Drop in both eyes twice* Patient not taking: Reported on 10/15/2017 NITROGLYCERIN 0.4 MG SUBLINGU* Dissolve 1 tablet under the t* FLUTICASONE 50 MCG/ACTUATION * 2 sprays to each nostril once* * ASPIRIN 81 MG TABLET Take one(1) tablet daily. Problem List As Of Date 01/11/2018 Noted Resolved DM w/o Complication Type II [E11.9] INVALID FOR*01/17/2014 More... Epilepsy (HCC) [G40.909] INVALID FOR* More... More... Vitamin D Deficiency [E55.9] INVALID FOR* More... Osteopenia [M85.80] INVALID FOR* More... Arthritis [M19.90] INVALID FOR* More... CAD (coronary artery disease) [I25.10] INVALID FOR* More... Allergic Rhinitis [J30.9] INVALID FOR*08/31/2009 Chronic Rhinitis [J31.0] INVALID FOR* Lipoma of unspecified site [D17.9] INVALID FOR*07/17/2014 Unspecified hereditary and idiopathic periphera*INVALID FOR*09/09/2016 Hyperlipidemia [E78.5] INVALID FOR*07/17/2014 Trigger thumb of left hand [M65.312] INVALID FOR*11/06/2011 Trigger thumb of left hand [M65.312] INVALID FOR*01/12/2012 Thyroid nodule [E04.1] INVALID FOR* More... Pain in joint, lower leg [M25.569] INVALID FOR*07/17/2014 LINA (obstructive sleep apnea) [G47.33] INVALID FOR* More... Stenosing tenosynovitis of wrist [M65.88] INVALID FOR*07/17/2014 Tendonitis, Achilles, right [M76.61] INVALID FOR* Hyperlipemia [E78.5] INVALID FOR* Achilles bursitis or tendinitis [M76.60] INVALID FOR*07/17/2014 DM2 (diabetes mellitus, type 2) (HCC) [E11.9] INVALID FOR* More... Thoracic or lumbosacral neuritis or radiculitis*INVALID FOR*07/17/2014 Left knee pain [M25.562] INVALID FOR* More... Arthritis of knee, left [M17.12] INVALID FOR*07/17/2014 Foot fracture [S92.909A] INVALID FOR*08/14/2016 Tendonitis, Achilles, right [M76.61] INVALID FOR*04/15/2016 Heel pain [M79.673] INVALID FOR*04/15/2016 Internal hemorrhoids [K64.8] INVALID FOR*04/15/2016 Blood per rectum [K62.5] INVALID FOR*04/15/2016 Essential hypertension [I10] INVALID FOR* Osteoarthritis of spine with radiculopathy, lum*INVALID FOR* DDD (degenerative disc disease), lumbar [M51.36]INVALID FOR* Berenice's deformity, 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] INVALID FOR* Disposition: Return in about 6 weeks (around 02/22/2018) for Blayne Randhawa Follow-up and Disposition History Recorded Encounter Status:Closed by MYNOR FLORES DPM on 01/11/18 PROGRESS Observed: 01/07/2018 Status: COMPLETED Source: [place] 7:41 AM [facility] [place] REPOSITORY HNO ID: [id number] Author: Karuna Almanzar Service: (none) Author Type: Physical Therapist Type: Progress Notes Filed: 01/07/2018 7:44 AM Note Text: Episode Visit Count: 2 Therapist That Will Oversee The Plan Of Care: Karuna Almanzar PT Start of Care Date: 01/05/18 Onset Date: 01/06/16 Plan of Care Certification Date: 01/05/18 Patient Identified by Name and Date of : Yes REHABILITATION AND SPORTS THERAPY PHYSICAL THERAPY TREATMENT NOTE ASSESSMENT: Lacy Alvarado demonstrated good tolerance to session with no pain at the start of end of session. Patient to pay attention to how her R ankle feels today since she had ultrasound done to see if this changes the pain symptoms at her R heel. The patient will continue to benefit from continued skilled physical therapy for ROM, flexibility, US and manual for pain control. PLAN FOR NEXT VISIT: Assess delayed affects of US, ABCs for ROM SUBJECTIVE: Will be seeing how she does not wearing high heels on Thursday. Will let me know last week. Just woke up so not having R heel pain. Next week will be seeing Dr. Flores on Thursday and will be asking for an injection and wants to continue with PT. Pain Score: 0/10 Pain Location: Heel - Right OBJECTIVE MEASURES WITH LEVEL OF FUNCTION: Patient arrived wearing sandals TREATMENT: Therapeutic Exercise: 1: Long Sitting RIGHT Gastroc Stretch with sheet 30 sec, 3x 3: RIGHT Ankle DF/PF/Inv/Ever/Circles x10 each Skilled Intervention: Patient was educated in proper exercise technique and purpose for exercises. Skilled judgment was provided in selection of appropriate interventions. Modalities: Ultrasound Body Region Treated - Ultrasound: R achillies tendon Patient Position: prone Mode: 100% w/cm2: 1.5 MHZ: 1 Minutes: 15 See flowsheet for details regarding treatment. Skilled Intervention: Proper administration and selection of modality based on clinical presentation, deficits, and needs. Patient response monitored throughout treatment. Billing: [facility]: Therapeutic Exercise (52691): 1:1 time: 15 minutes (1 unit: 8-22 mins) Modalities Ultrasound (86760) 1:1 time: 15 minutes1 unit: 8-22 mins Total time: 30 minutes Karuna Almanzar PT CNTHERAPY Observed: 01/07/2018 Status: COMPLETED Source: [place] 7:00 AM [facility] REPOSITORY OT/PT/Speech Visit (PTWS) LACY ALVARADO ([id number]) 1950 F Date Time Provider Department 01/07/18 7:00 AM KARUNA ALMANZAR (PT) PTWS Date Time Provider Department [place] 01/07/2018 7:00 AM [id number], DIANA (PT)PTWS [facility] Reason for Visit: Physical Therapy [503] Primary Visit Diagnosis:Tendonitis, Achilles, right [M76.61] Other Visit Diagnosis:Berenice's deformity, 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] Allergies As of Date: 01/07/2018 Noted Allergy Reaction SEASONAL ALLERGIES 01/30/2014 14 - Other: See Comments Comments: Cats, Cockroach, Dust mites, molds, weeds Date Reviewed: 12/09/2017 Reviewed by: Angela Talbot Ma - Fully Assessed Prescriptions as of 01/07/2018 Sig: VERAPAMIL ER (SR) 240 MG TABL* Take 0.5 tablets by mouth twi* METFORMIN ER 500 MG TABLET,EX* Take 1 tablet by mouth twice * MELOXICAM 7.5 MG TABLET Take 1 tablet by mouth once d* ATORVASTATIN 40 MG TABLET Take 1 tablet by mouth once d* GABAPENTIN 600 MG TABLET Take 1 tablet by mouth twice * HYDROXYCHLOROQUINE 200 MG TAB* Take 1 tablet by mouth twice * DIVALPROEX 500 MG TABLET,MANDIE* Take 2 tablets by mouth daily* LOSARTAN 25 MG TABLET Take 1 tablet by mouth once d* GLIMEPIRIDE 1 MG TABLET Take one with evening meal OMEPRAZOLE 20 MG CAPSULE,MANDIE* Take 1 capsule by mouth twice* [id number] * Use 3 Drops in the left ear f* Patient not taking: Reported on 10/15/2017 DICYCLOMINE 10 MG CAPSULE Take 1 capsule by mouth befor* CPAP New supplies needed, medicall* CHOLECALCIFEROL (VITAMIN D3) * Take 1 tablet by mouth once d* BLOOD-GLUCOSE METER KIT Glucose Meter of Choice - Kit* BLOOD SUGAR DIAGNOSTIC STRIPS Test blood sugar(s) 1x times * LANCETS Test blood sugar(s) 1x daily.* OLOPATADINE 0.1 % EYE DROPS Use 1 Drop in both eyes twice* Patient not taking: Reported on 10/15/2017 NITROGLYCERIN 0.4 MG SUBLINGU* Dissolve 1 tablet under the t* FLUTICASONE 50 MCG/ACTUATION * 2 sprays to each nostril once* * ASPIRIN 81 MG TABLET Take one(1) tablet daily. Progress Notes: Karuna Almanzar PT 01/07/2018 7:44 AM Signed Episode Visit Count: 2 Therapist That Will Oversee The Plan Of Care: Karuna Almanzar PT Start of Care Date: 01/05/18 Onset Date: 01/06/16 Plan of Care Certification Date: 01/05/18 Patient Identified by Name and Date of : Yes REHABILITATION AND SPORTS THERAPY PHYSICAL THERAPY TREATMENT NOTE ASSESSMENT: Lacy Alvarado demonstrated good tolerance to session with no pain at the start of end of session. Patient to pay attention to how her R ankle feels today since she had ultrasound done to see if this changes the pain symptoms at her R heel. The patient will continue to benefit from continued skilled physical therapy for ROM, flexibility, US and manual for pain control. PLAN FOR NEXT VISIT: Assess delayed affects of US, ABCs for ROM SUBJECTIVE: Will be seeing how she does not wearing high heels on Thursday. Will let me know last week. Just woke up so not having R heel pain. Next week will be seeing Dr. Flores on Thursday and will be asking for an injection and wants to continue with PT. Pain Score: 0/10 Pain Location: Heel - Right OBJECTIVE MEASURES WITH LEVEL OF FUNCTION: Patient arrived wearing sandals TREATMENT: Therapeutic Exercise: 1: Long Sitting RIGHT Gastroc Stretch with sheet 30 sec, 3x 3: RIGHT Ankle DF/PF/Inv/Ever/Circles x10 each Skilled Intervention: Patient was educated in proper exercise technique and purpose for exercises. Skilled judgment was provided in selection of appropriate interventions. Modalities: Ultrasound Body Region Treated - Ultrasound: R achillies tendon Patient Position: prone Mode: 100% w/cm2: 1.5 MHZ: 1 Minutes: 15 See flowsheet for details regarding treatment. Skilled Intervention: Proper administration and selection of modality based on clinical presentation, deficits, and needs. Patient response monitored throughout treatment. Billing: [facility]: Therapeutic Exercise ([id number]): 1:1 time: 15 minutes (1 unit: 8-22 mins) Modalities Ultrasound ([id number]) 1:1 time: 15 minutes1 unit: 8-22 mins Total time: 30 minutes Karuna Almanzar PT PROGRESS Observed: 01/05/2018 Status: COMPLETED Source: [place] 7:33 AM [facility] REPOSITORY [facility] ID: [id number] Author: Karuna (Pt) Jenelle Service: (none) Author Type: Physical Therapist Type: Progress Notes Filed: 01/05/2018 9:09 AM Note Text: Episode Visit Count: 1 Therapist That Will Oversee The Plan Of Care: Karuna Almanzar PT Start of Care Date: 01/05/18 Onset Date: 01/06/16 Patient Identified by Name and Date of : Yes REHABILITATION AND SPORTS THERAPY PHYSICAL THERAPY EVALUATION PLAN OF CARE: Assessment: Lacy Alvarado presents with the diagnosis of R Achilles Tendonitis and R Berenice's deformity. She presents with impairments of decreased R ankle ROM, decreased R ankle strength, tight gastroc/soleus on R, R heel pain, R ankle swelling, and inability to perform heel raises on R foot. 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 Prognosis: Good Good due to: good support system/ coping skills;good overall health status;Prognosis may be limited Prognosis may be limited by: chronic nature of impairments Goals for Episode of Care: created on 01/05/18 through 03/16/18 Price in home exercise program. Patient will decrease pain rating by 2 points to meet minimal clinical important difference for numeric pain rating scale. (Best=3/10 AND Worst=8/10) Patient will increase active ROM of R ankle to equal L ankle to allow pt to to achieve neutral postural alignment and improved performance of ADLs. Patient will increase strength of R ankle to 5/5 to allow for return to prior functional status and perform ADLs. Patient will increase flexibility of R gastroc to equal unaffected extremity/side to improve ability to maintain proper posture, restore normal mechanics and decrease pain. Demonstrate improvement on functional score: Patient will improve his/her AM-PAC T-scale score by 4 points to indicate a Minimal Clinical Important Difference. (Goal: 58.59) G CODE REPORTING Based on clinical assessment and the score on the AM-PAC Scale Score Assessment Tool, the G code and corresponding severity modifiers are documented below. Evaluation: 01/05/2018 Current Status: Mobility: Walking and Moving Around: G8978 20-39% impaired Goal Status: Mobility: Walking and Moving Around: G8979 CJ 20-39% impaired Planned Interventions, Frequency, and Duration: Current Frequency: 2x/week Duration: 4 weeks Total Number of Visits Planned: 9 Planned Treatment Interventions: Therapeutic exercise;Neuromuscular re-education;Manual therapy;Therapeutic activities;Self-shelter management;Gait Training;Patient/Family/Caregiver Education;Modalities;Functional training;General ConditioningUltrasound PLAN FOR NEXT VISIT: see how wearing flat shoes is going, manual, ultrasound 1.5 W/Cm2, 1 MHz, Patient demonstrates good understanding of plan of care and treatment. The above goals and plan of care were discussed and agreed upon by patient/family. SUBJECTIVE: Lacy Alvarado is a 67 year old female seen today for chronic R heel pain. Patient states she loves to wear high heels that are 3-4 high. 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 Sx get worse as the day goes on. Not doing any specfic exercises. 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 Class starts next Thursday. Has to get through class to keep job and would like to avoid surgery until after class if necessary. Functional Limitations: walking;standing;physical activities Prior Level of Function: Independent without limitations Patient Goals: to prevent having surgery on R heel until after her year long class if possible using conservative measures Intake Information: Prescription present Previous Treatment: Immobilizer/brace? Falls Interview: No positive findings with falls interview Pain Score: (Currenlty: 5/10 Worst: 10/10) Pain Location: Heel - Right Description: Burning;Aching (burning comes and goes) Frequency: Continuous Post Treatment Pain Score: No Change OBJECTIVE MEASURES WITH LEVEL OF FUNCTION: Ankle Observations R Ankle Palpation Tenderness: Achilles tendon LE AROM R Ankle Dorsiflexion: 0 Degrees (patient unable to move past neutral d/t pain) R Ankle Plantar Flexion: 20 Degrees (with pain) R Ankle Inversion: 2 (with pain) R Ankle Eversion: 2 (with pain) L Ankle Dorsiflexion: 20 Degrees L Ankle Plantar Flexion: 42 Degrees L Ankle Inversion: 30 L Ankle Eversion: 25 LE Flexibility Flexibility: Gastrocnemius Flexibility R Gastrocnemius Flexibility: WFL L Gastrocnemius Flexibility: tight LE Strength R Ankle Dorsiflexion (L4): 3+/5 (with pain) R Ankle Plantar Flexion: 3-/5 (with pain) R Ankle Inversion: 3-/5 (with pain) R Ankle Eversion: 3-/5 (with pain) L Ankle Dorsiflexion (L4): 5/5 L Ankle Plantar Flexion: 5/5 L Ankle Inversion: 5/5 L Ankle Eversion: 5/5 Functional Strength R Single Leg Heel Raise: 3 (very challanging ) L Single Leg Heel Raise: 10 Special Tests - Ankle Ankle Special Tests: Anterior Drawer for ATFL laxity;Varus Tilt;Posterior Drawer;Syndesmosis Squeeze Test Anterior Drawer for ATFL laxity: Left negative Posterior Drawer: Left negative Syndesmosis Squeeze Test: Left negative Varus Tilt: Left negative Circumferential measurements R ankle=29.5cm R calf=34 cm L ankle=26.5 cm Observation= patient wearing sandals Education: Education Learning Preferences: Demonstration;Explanation;Performance;Printed Materials Barriers: None Learning/educational needs: Plan of Care;Home exercise program Education Provided: Yes, see treatment interventions for education provided Education Provided To: Patient Education Mode/Type: Demonstration;Explanation/Discussion;Literature/Printed Materials;Performance;Teach Back Response to Education/Teach Back: States/Identifies TREATMENT: Evaluation Therapeutic Exercise: 1: *Long Sitting RIGHT Gastroc Stretch with sheet 30 sec, 3x 2: *Direct Ice massage to back of R heel 3-5 minutes with constant movement. 3: *RIGHT Ankle DF/PF/Inv/Ever/Circles x10 each Skilled Intervention: Patient was educated in proper exercise technique and purpose for exercises. Reviewed and educated patient on additions/changes for home exercise program as above (*) Skilled judgment was provided in selection of appropriate interventions. Provided written instruction for home exercise program to facilitate proper performance and compliance. Correct performance of therapeutic exercises was facilitated with verbal, visual and tactile cuing. Self-Retirement Management: 1: Recommended to stop wearing high heels as this causes increased R heel symptoms to her pump bump 2: Educated and recommended patient wear supportive tennis shoes when she works. 3: Suggested trying to wear knee high compression stockings to help with ankle swelling. R ankle and calf measurements provided Skilled Intervention: Skilled judgment in the selection of proper modification for activity of daily living/home management based on clinical presentation, deficits, and needs. Billing: [facility]: Evaluation - Low Complexity (40976) Therapeutic Exercise (75514): 1:1 time: 15 minutes (1 unit: 8-22 mins) Educ Home Mgmt (53194): 1:1 time: 10 minutes (1 unit: 8-22 mins) Total time: 38 minutes Karuna Almanzar PT CNTHERAPY Observed: 01/05/2018 Status: COMPLETED Source: [place] 7:00 AM [facility] REPOSITORY OT/PT/Speech Visit (PTWS) LACY ALVARADO ([id number]) 1950 F Date Time Provider Department 01/05/18 7:00 AM KARUNA ALMANZARPT) PTWS Date Time Provider Department [facility] 01/05/2018 7:00 AM [id number], DIANA (PT)PTWS [facility] Reason for Visit: PT Eval [747] Patient Education [91] Primary Visit Diagnosis:Tendonitis, Achilles, right [M76.61] Other Visit Diagnosis:Berenice's deformity, 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] Allergies As of Date: 01/05/2018 Noted Allergy Reaction SEASONAL ALLERGIES 01/30/2014 14 - Other: See Comments Comments: Cats, Cockroach, Dust mites, molds, weeds Date Reviewed: 12/09/2017 Reviewed by: Angela Talbot Ma - Fully Assessed Prescriptions as of 01/05/2018 Sig: VERAPAMIL ER (SR) 240 MG TABL* Take 0.5 tablets by mouth twi* METFORMIN ER 500 MG TABLET,EX* Take 1 tablet by mouth twice * MELOXICAM 7.5 MG TABLET Take 1 tablet by mouth once d* ATORVASTATIN 40 MG TABLET Take 1 tablet by mouth once d* GABAPENTIN 600 MG TABLET Take 1 tablet by mouth twice * HYDROXYCHLOROQUINE 200 MG TAB* Take 1 tablet by mouth twice * DIVALPROEX 500 MG TABLET,MANDIE* Take 2 tablets by mouth daily* LOSARTAN 25 MG TABLET Take 1 tablet by mouth once d* GLIMEPIRIDE 1 MG TABLET Take one with evening meal OMEPRAZOLE 20 MG CAPSULE,MANDIE* Take 1 capsule by mouth twice* [id number] * Use 3 Drops in the left ear f* Patient not taking: Reported on 10/15/2017 DICYCLOMINE 10 MG CAPSULE Take 1 capsule by mouth befor* CPAP New supplies needed, medicall* CHOLECALCIFEROL (VITAMIN D3) * Take 1 tablet by mouth once d* BLOOD-GLUCOSE METER KIT Glucose Meter of Choice - Kit* BLOOD SUGAR DIAGNOSTIC STRIPS Test blood sugar(s) 1x times * LANCETS Test blood sugar(s) 1x daily.* OLOPATADINE 0.1 % EYE DROPS Use 1 Drop in both eyes twice* Patient not taking: Reported on 10/15/2017 NITROGLYCERIN 0.4 MG SUBLINGU* Dissolve 1 tablet under the t* FLUTICASONE 50 MCG/ACTUATION * 2 sprays to each nostril once* * ASPIRIN 81 MG TABLET Take one(1) tablet daily. Progress Notes: Karuna Almanzar PT 01/05/2018 9:09 AM Signed Episode Visit Count: 1 Therapist That Will Oversee The Plan Of Care: Karuna Almanzar PT Start of Care Date: 01/05/18 Onset Date: 01/06/16 Patient Identified by Name and Date of : Yes REHABILITATION AND SPORTS THERAPY PHYSICAL THERAPY EVALUATION PLAN OF CARE: Assessment: Lacy Alvarado presents with the diagnosis of R Achilles Tendonitis and R Berenice's deformity. She presents with impairments of decreased R ankle ROM, decreased R ankle strength, tight gastroc/soleus on R, R heel pain, R ankle swelling, and inability to perform heel raises on R foot. 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 Prognosis: Good Good due to: good support system/ coping skills;good overall health status;Prognosis may be limited Prognosis may be limited by: chronic nature of impairments Goals for Episode of Care: created on 01/05/18 through 03/16/18 Price in home exercise program. Patient will decrease pain rating by 2 points to meet minimal clinical important difference for numeric pain rating scale. (Best=3/10 AND Worst=8/10) Patient will increase active ROM of R ankle to equal L ankle to allow pt to to achieve neutral postural alignment and improved performance of ADLs. Patient will increase strength of R ankle to 5/5 to allow for return to prior functional status and perform ADLs. Patient will increase flexibility of R gastroc to equal unaffected extremity/side to improve ability to maintain proper posture, restore normal mechanics and decrease pain. Demonstrate improvement on functional score: Patient will improve his/her AM-PAC T-scale score by 4 points to indicate a Minimal Clinical Important Difference. (Goal: 58.59) G CODE REPORTING Based on clinical assessment and the score on the AM-PAC Scale Score Assessment Tool, the G code and corresponding severity modifiers are documented below. Evaluation: 01/05/2018 Current Status: Mobility: Walking and Moving Around: G8978 20-39% impaired Goal Status: Mobility: Walking and Moving Around: G8979 20-39% impaired Planned Interventions, Frequency, and Duration: Current Frequency: 2x/week Duration: 4 weeks Total Number of Visits Planned: 9 Planned Treatment Interventions: Therapeutic exercise;Neuromuscular re-education;Manual therapy;Therapeutic activities;Self-shelter management;Gait Training;Patient/Family/Caregiver Education;Modalities;Functional training;General ConditioningUltrasound PLAN FOR NEXT VISIT: see how wearing flat shoes is going, manual, ultrasound 1.5 W/Cm2, 1 MHz, Patient demonstrates good understanding of plan of care and treatment. The above goals and plan of care were discussed and agreed upon by patient/family. SUBJECTIVE: Lacy Alvarado is a 67 year old female seen today for chronic R heel pain. Patient states she loves to wear high heels that are 3-4 high. 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 Sx get worse as the day goes on. Not doing any specfic exercises. 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 Class starts next Thursday. Has to get through class to keep job and would like to avoid surgery until after class if necessary. Functional Limitations: walking;standing;physical activities Prior Level of Function: Independent without limitations Patient Goals: to prevent having surgery on R heel until after her year long class if possible using conservative measures Intake Information: Prescription present Previous Treatment: Immobilizer/brace? Falls Interview: No positive findings with falls interview Pain Score: (Currenlty: 10 Worst: 10) Pain Location: Heel - Right Description: Burning;Aching (burning comes and goes) Frequency: Continuous Post Treatment Pain Score: No Change OBJECTIVE MEASURES WITH LEVEL OF FUNCTION: Ankle Observations R Ankle Palpation Tenderness: Achilles tendon LE AROM R Ankle Dorsiflexion: 0 Degrees (patient unable to move past neutral d/t pain) R Ankle Plantar Flexion: 20 Degrees (with pain) R Ankle Inversion: 2 (with pain) R Ankle Eversion: 2 (with pain) L Ankle Dorsiflexion: 20 Degrees L Ankle Plantar Flexion: 42 Degrees L Ankle Inversion: 30 L Ankle Eversion: 25 LE Flexibility Flexibility: Gastrocnemius Flexibility R Gastrocnemius Flexibility: WFL L Gastrocnemius Flexibility: tight LE Strength R Ankle Dorsiflexion (L4): 3+/5 (with pain) R Ankle Plantar Flexion: 3-/5 (with pain) R Ankle Inversion: 3-/5 (with pain) R Ankle Eversion: 3-/5 (with pain) L Ankle Dorsiflexion (L4): 5/5 L Ankle Plantar Flexion: 5/5 L Ankle Inversion: 5/5 L Ankle Eversion: 5/5 Functional Strength R Single Leg Heel Raise: 3 (very challanging ) L Single Leg Heel Raise: 10 Special Tests - Ankle Ankle Special Tests: Anterior Drawer for ATFL laxity;Varus Tilt;Posterior Drawer;Syndesmosis Squeeze Test Anterior Drawer for ATFL laxity: Left negative Posterior Drawer: Left negative Syndesmosis Squeeze Test: Left negative Varus Tilt: Left negative Circumferential measurements R ankle=29.5cm R calf=34 cm L ankle=26.5 cm Observation= patient wearing sandals Education: Education Learning Preferences: Demonstration;Explanation;Performance;Printed Materials Barriers: None Learning/educational needs: Plan of Care;Home exercise program Education Provided: Yes, see treatment interventions for education provided Education Provided To: Patient Education Mode/Type: Demonstration;Explanation/Discussion;Literature/Printed Materials;Performance;Teach Back Response to Education/Teach Back: States/Identifies TREATMENT: Evaluation Therapeutic Exercise: 1: *Long Sitting RIGHT Gastroc Stretch with sheet 30 sec, 3x 2: *Direct Ice massage to back of R heel 3-5 minutes with constant movement. 3: *RIGHT Ankle DF/PF/Inv/Ever/Circles x10 each Skilled Intervention: Patient was educated in proper exercise technique and purpose for exercises. Reviewed and educated patient on additions/changes for home exercise program as above (*) Skilled judgment was provided in selection of appropriate interventions. Provided written instruction for home exercise program to facilitate proper performance and compliance. Correct performance of therapeutic exercises was facilitated with verbal, visual and tactile cuing. Self-Retirement Management: 1: Recommended to stop wearing high heels as this causes increased R heel symptoms to her pump bump 2: Educated and recommended patient wear supportive tennis shoes when she works. 3: Suggested trying to wear knee high compression stockings to help with ankle swelling. R ankle and calf measurements provided Skilled Intervention: Skilled judgment in the selection of proper modification for activity of daily living/home management based on clinical presentation, deficits, and needs. Billing: [facility]: Evaluation - Low Complexity (18865) Therapeutic Exercise (89274): 1:1 time: 15 minutes (1 unit: 8-22 mins) Educ Home Mgmt (52565): 1:1 time: 10 minutes (1 unit: 8-22 mins) Total time: 38 minutes Karuna Almanzar PT INTERNAL MEDICINE Observed: 12/28/2017 Status: F Source: [facility] OFFICE VISIT 1:15 PM [facility] [address] [place] [address] [place] [address] OFFICE VISIT Date of Service: 12/25/17 MR#: [id number] Acct: [id number] Name: LACY ALVARADO Rep #: [id number] : 1950 Provider: Mayda Garcia MD Age/Sex: 67/F Location: [facility] Status: Signed Intake Vital Signs12/25/17 Height 5 ft 2 in 12/25/17 Weight: 170 lb 12/25/17 Body Mass Index (BMI) 31.1 12/25/17 Blood Pressure 138/76 Intake Visit Reasons: 3 MO FU, PT R/S FROM 12/07/17 Chief Complaint: 3 mo FU Is patient in pain?: Yes (Heel spurs) Pain scale (1-10): 10 Allergies prednisone Adverse Reaction (Verified 12/25/17 08:07) Nausea Medications Metformin HCl [Glucophage] 500 mg PO BIDCM 02/22/13 [History Confirmed 12/25/17] Gabapentin 600 mg PO BID 02/23/13 [History Confirmed 12/25/17] Glimepiride [Amaryl] 2 mg PO DAILY 02/23/13 [History Confirmed 12/25/17] Hydroxychloroquine [Plaquenil] 200 mg PO BIDCM 02/23/13 [History Confirmed 12/25/17] Meloxicam [Mobic] 7.5 mg PO DAILY 02/23/13 [History Confirmed 12/25/17] Omeprazole [Prilosec] 20 mg PO DAILY 02/23/13 [History Confirmed 12/25/17] Verapamil [Calan] 120 mg PO QHS 02/23/13 [History Confirmed 12/25/17] Dicyclomine HCl [Bentyl] 20 mg PO TIDAC PRN #16 cap 12/25/15 [Rx Confirmed 12/25/17] Divalproex Sodium [Depakote ER] 1,000 mg PO QHS 07/12/16 [History Confirmed 12/25/17] Atorvastatin Calcium [Lipitor] 40 mg PO QHS 08/24/16 [History Confirmed 12/25/17] Aspirin [Aspirin, Baby] 81 mg PO DAILY@0800 02/26/17 [History Confirmed 12/25/17] Cholecalciferol (Vitamin D3) [Vitamin D3] 2,000 unit PO DAILY 02/26/17 [History Confirmed 12/25/17] Losartan Potassium [Cozaar] 25 mg PO DAILY 02/26/17 [History Confirmed 12/25/17] cyclobenzaprine 10 mg tablet 10 mg PO TID PRN #30 tab 05/18/17 [Rx Confirmed 12/25/17] fluticasone 50 mcg/actuation nasal spray,suspension 1 spray INTRANASAL BID #16 g 06/23/17 [Rx Confirmed 12/25/17] triamcinolone acetonide 0.025 % topical ointment 1 applic TOPICAL QDAY #80 g 09/10/17 [Rx Confirmed 12/25/17] ketotifen 0.025 % (0.035 %) eye drops 1 drp OPHTHALMIC BID PRN #5 ml 09/14/17 [Rx Confirmed 12/25/17] PFSH Medical History Arthritis (Acute) Diabetes type 2, controlled (Acute) Heart disease (Acute) High cholesterol (Acute) Hives (Acute) Rheumatoid arthritis (Acute) Seasonal allergies (Acute) Seizures (Acute) HTN (hypertension) (Chronic) Surgical History H/O: hysterectomy (Acute) History of carpal tunnel surgery (Acute) History of section (Acute) Family History Grandmother Alcoholism Cancer Arthritis Mother Alcoholism Diabetes blood clots Hypertension Grandfather Heart disease Sister Thyroid disorder Other Breast cancer Cervical cancer Colon cancer Social History Smoking Status: Never smoker second hand exposure: Yes alcohol intake: never substance use type: does not use what type of physical activity do you participate in: none HPI HPI Chief Complaint: 3 mo FU Details: LACY ALVARADO, is a 67yo F who presents to the office today for follow-up of her chronic medical conditions. She has no acute complaints at this time. Blood pressure is stable. Last A1c in May was 6.7. She reports compliance with her medications. 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 ROS Const Constitutional: No chills, fatigue, fever(s), frequent falls, malaise, weakness, sleep problems or change in appetite Eyes Eyes: No blurry vision, change in vision, double vision, discharge or visual disturbances ENT ENT: No abnormal hearing, ear pain, ear pressure, tinnitus or dizziness/vertigo Resp Respiratory: No cough, shortness of breath or wheezing Cardio Cardiology: No chest pain at rest, chest pain with exertion, shortness of breath, dyspnea on exertion, generalized swelling, irregular heart rhythm, lightheadedness, orthopnea, fast heart rate or palpitations Gastro GI: No abdominal pain, change in bowel habits, constipation, diarrhea, nausea/dyspepsia or vomiting Genitourinary-Female: No difficulty urinating, burning urination, painful urination, urinary incontinence, urinary frequency, urinary urgency, urinary hesitancy, urinary retention, Frequent nighttime urination/ nocturia, sexual problems, genital lesions, abnormal vaginal bleeding, pelvic pain, vaginal dryness, vaginal odor or Vaginal Itching Musc Musculoskeletal: No joint pain, back pain, joint swelling, limited range of motion, numbness or tingling Skin Skin: No change in skin color, itching, rash or wounds Breast Breast: No breast lump or breast pain Neuro Neurology: No frequent falls, weakness, abnormal hearing, numbness, tingling, unsteady gait/balance, dizziness, loss of vision, memory loss or visual disturbances Psych Psychiatric: No memory loss, No anxiety, No change in appetite, No depression, No Thoughts of harming yourself/Others Endo Endocrine: No fatigue, heat intolerance, increased thirst/drinking, increased hunger or increased urination Aller/Imm Allergy/Immunologic: No wheezing, itchy eyes or seasonal allergy symptoms True/Lymp Hematologic/Lymphatic: No easy bleeding, easy bruising or enlarged lymph nodes Exam Const General: cooperative, no acute distress Orientation: alert, awake, oriented x3 HENMT Head: atraumatic, normocephalic Ears: hearing grossly normal bilaterally Neck Neck: normal visual inspection, full ROM, no lymphadenopathy Neck mass: No Thyroid: thyroid normal Resp Effort AND Inspection: normal respiratory effort, able to speak in complete sentences Neuro General: alert, awake, oriented x3, moves all extremities, CN's II-XI intact bilaterally Extrem General: no clubbing, cyanosis or edema Psych Appearance: grossly normal Mood: congruent mood Affect: normal affect Assessment AND Plan 1. Type 2 diabetes mellitus E11.9 Plan Well-controlled. Last A1c of 6.7. Repeat A1c ordered. Urine microalbumin also ordered. Continue current management and lifestyle modifications. Orders Orders: 2. Essential hypertension I10 Plan Stable. Continue current medication and lifestyle modifications. 3. Pure hypercholesterolemia E78.00 Plan LDL not at goal. Medication compliance and dietary/lifestyle modifications discussed. Repeat lipid profile at next visit. 4. Heel spur M77.30 Plan Chronic. Following up with podiatry. Plan is to start physical therapy and if no significant improvement surgery has been proposed. Will follow 5. Healthcare maintenance Z00.00 Plan Postmenopausal. Also a history of vitamin D deficiency. Bone density scan ordered. She has had a hysterectomy and has had no subsequent Pap smears. Mammogram and colonoscopy up-to-date. This note was generated with [employer] software. It may contain incorrect words, spelling, and punctuation that were not noted in checking the note before signing. Plan Detail Other Orders Orders: Other Medications Discontinued: nitroglycerin Discontinued Reason: Order Complet0.4 mg Sublingual Q5M PRN Chest Pain ed Coding Level of Care Code Off vis,est,level 4 Diagnoses Type 2 diabetes mellitus E11.9 Essential hypertension I10 Hypertension type: essential hypertension Pure hypercholesterolemia E78.00 Hyperlipidemia type: pure hypercholesterolemia Heel spur M77.30 Healthcare maintenance Z00.00 12/28/17 1315 <Electronically signed by Mayda Garcia MD> Date Mayda Garcia MD Cosigner Signature: Date (if applicable) CC: PROGRESS Observed: 12/09/2017 Status: COMPLETED Source: [place] 7:57 AM [facility] REPOSITORY HNO ID: [id number] Author: Mynor Flores Service: (none) Author Type: Physician Type: Progress Notes Filed: 12/09/2017 8:20 AM Note Text: ? Mynor Flores DPM Department of Podiatry [address] [facility] [address] Dept: [phone] Dept 12/09/2017 Follow Up Podiatric Office Visit: HPI: Lacy Alvarado is a 67 year old female. Patient presents for follow up of Haglunds Deformity, R. Patient reports constant pain to R heel. Rates pain 8-10 that is constant burning and achy. Worsened with prolonged walking/use. She has tried meloxicam, boot immobilization, ice, and physical therapy with minimal relief. 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 She is a diabetic, but did not check her blood sugar this AM. She is not a smoker. PCP: Mayda Garcia MD PAST MEDICAL HISTORY Diagnosis Date - Allergic rhinitis 02/06/2009 - Alopecia, unspecified 11/18/2005 - Blepharitis, unspecified 09/13/2007 - CAD (coronary artery disease) 11/24/200711/2007 CT angio-Nonobstructive CAD, <50% lesions in LAD and circ - Chest pain, unspecified - Diabetic - Epilepsy (HCC) 02/06/2009 since childhood - Epilepsy (HCC) - Hypersomnia, unspecified 09/26/2005 - Hypertension - Internal hemorrhoids 04/11/2015 - Iron deficiency anemia secondary to blood loss (chronic) 03/13/2004 - Lipoma of unspecified site 12/30/2007 - Obstructive sleep apnea - Osteopenia 02/06/2009 BMD done ? - Other and unspecified hyperlipidemia 02/06/2009 - Persistent disorder of initiating or maintaining sleep 08/31/2005 - Rheumatoid arthritis(714.0) - Seizures (HCC) - Snoring - Type II or unspecified type diabetes mellitus without mention of complication, not stated as uncontrolled 2007 - Varicose veins of leg with complications 11/29/2007 - Vitamin D deficiency 02/06/2009 Current Outpatient Prescriptions: verapamil SR (CALAN SR, ISOPTIN SR) 240 mg CR tablet Take 0.5 tablets by mouth twice daily. metFORMIN ER (GLUCOPHAGE XR) 500 mg 24 hr tablet Take 1 tablet by mouth twice daily before meals. meloxicam (MOBIC) 7.5 mg tablet Take 1 tablet by mouth once daily. atorvastatin (LIPITOR) 40 mg tablet Take 1 tablet by mouth once daily. gabapentin (NEURONTIN) 600 mg tablet Take 1 tablet by mouth twice daily. hydroxychloroquine (PLAQUENIL) 200 mg tablet Take 1 tablet by mouth twice daily. divalproex DR (DEPAKOTE) 500 mg EC tablet Take 2 tablets by mouth daily at bedtime. losartan (COZAAR) 25 mg tablet Take 1 tablet by mouth once daily. glimepiride (AMARYL) 1 mg tablet Take one with evening meal omeprazole (PRILOSEC) 20 mg capsule Take 1 capsule by mouth twice daily. ternohgl-ioguxllmc-ssizfrwbqpvdtg (CORTISPORIN) otic solution Use 3 Drops in the left ear four times daily. (Patient not taking: Reported on 10/15/2017 ) dicyclomine (BENTYL) 10 mg capsule Take 1 capsule by mouth before meals and at bedtime. CPAP New supplies needed, medically necessary. Mask refitting please. autoPAP 8-15 cmH2O, mask, tubing, filters, heated humidity, lifetime supplies. Dx: LINA cholecalciferol (VITAMIN D3) 2,000 unit tablet Take 1 tablet by mouth once daily. Blood-Glucose Meter monitoring kit Glucose Meter of Choice - Kit - Dx: Type 2 DM - Controlled E11.9 blood sugar diagnostic (BLOOD GLUCOSE TEST) test strip Test blood sugar(s) 1x times daily. Dx: Type 2 DM - Controlled E11.9 Insulin: No Lancets lancets Test blood sugar(s) 1x daily. Dx: E11.9. Insulin: No olopatadine (PATANOL) 0.1 % ophthalmic solution Use 1 Drop in both eyes twice daily as needed for Cold/Allergy Symptoms. (Patient not taking: Reported on 10/15/2017 ) nitroglycerin sublingual (NITROSTAT) 0.4 mg SL tablet Dissolve 1 tablet under the tongue as needed. FOR CHEST PAIN. IF NO RELIEF CALL 911 fluticasone (FLONASE) 50 mcg/actuation nasal spray 2 sprays to each nostril once to two times daily. ASPIRIN 81 MG TAB Take one(1) tablet daily. No current facility-administered medications for this visit. ALLERGIES Allergen Reactions - Seasonal Allergies Other: See Comments Cats, Cockroach, Dust mites, molds, weeds PAST SURGICAL HISTORY Procedure Laterality Date - DELIVERY ONLY , low transverse - COLONOSCOP W/ OR W/O BRSH SPEC 01/12/2013 Colonoscopy - EGD W/O OR W/BRUSH/WASH 07/16/15 EGD - HYSTERECTOMY HX 2006 Hysterectomy, supracervical - KNEE SCOPE,DIAGNOSTIC Left 1997 Arthroscopy, knee - PAST SURGICAL HISTORY OF 2011 trigger finger release - PAST SURGICAL HISTORY OF 7-25-14 6 days post right 1st dorsal compartment release FAMILY HISTORY Problem Relation Age of Onset - Adopted: Yes - Diabetes Mother With multiple complications, ?possible clotting problem - Unknown [OTHER] Father - Cancer Maternal Grandmother ?Cervical - Glaucoma Sister - Uknown [OTHER] Brother - Unknown [OTHER] Brother - Unknown [OTHER] Brother 1 brother from HIV - Unknown [OTHER] Sister - Unknown [OTHER] Sister Social History Marital status: Single Spouse name: Years of education: Number of children: Occupational History 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 EYES: No diplopia or blurry vision. CARDIOVASCULAR: No chest pain, dyspnea, palpitations, orthopnea, PND, ankle edema. PULM: No dyspnea, unexplained cough. GI: No dysphagia/odynophagia, problematic reflux, constipation, diarrhea, changes in stool habits, hematochezia, melena. : No new urinary complaints, including dysuria, gross hematuria or pyuria. NEURO: No new balance problems, peripheral weakness/paresthesias or numbness of concern. MUSC-SKEL: Right posterior heel pain PSY: No concerns regarding depression, anxiety or panic. INTEGUMENTARY: No new skin changes (rash, new or changing mole, new growth) Physical Exam: Constitutional: Pt is a well developed 67 year old female who is alert, oriented and cooperative Eyes: Following during examination. No redness or drainage. Respiratory: RR normal and nonlabored. Even breathing. No evidence of distress or shortness of breath. Psychology: Patient is engaged during conversation. Normal affect and mood. Does not appear depressed or anxious during encounter. Vascular: Dorsalis pedis and posterior tibial pulses faintly palpable as b/l Capillary Fill time < 5 seconds to digits 1-5 b/l Skin temperature warm to warm proximal to distal b/l Hair growth present to digits Neurological: intact light touch/epicritic sensation Dermatological: Nails 1-5 b/l appear Normal. Webspaces clean and dry 1-4 b/l. Skin appears well hydrated and supple. good color, texture, turgor. Callosities absent. Open lesions absent. Wound: Not present. Musculoskeletal/Orthopaedic: Patient has pain to palpation of right posterior heel at achiles insertion. No palpable tendon tear. Jensen test produces plantarflexion Foot type is neutral structurally AJ ROM is full with knee extended and flexed 1st MPJ is full when loaded and no pain or crepitus are noted with ROM. MTJ, STJ are full and free of pain and crepitus. +5/5 muscle strength dorsiflexion, plantarflexion, inversion, eversion b/l Radiographs: 3 views from last year xray reviewed. There is posterior heel spur present. 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 She has palpable spur and possible early achilles thickening. No evidence of tear on exam. Discussed continued conservative care not limited to physical therapy and inserts vs surgical Intervention to include spur resection, achilles debridement with possible transfer. She wants to try therapy but if this fails to help her, she will consider surgery. Will order pvr for pre-op planning in event therapy fails to help with her pain Discussed risk of rupture of achilles Patient to f/u in 1 month ALEXA Esqueda Observed: 12/09/2017 Status: COMPLETED Source: [place] 7:55 AM [facility] REPOSITORY Office Visit (PODIWS) LACY ALVARADO ([id number]) 1950 F Date Time Provider Department 12/09/17 7:55 AM MYNOR FLORES During your visit today, we recorded the following information about you: Mynor Flores DPM 12/09/2017 8:20 AM Signed ? Mynor Flores DPM Department of Podiatry [address] [facility] [address] Dept: [phone] Dept 12/09/2017 Follow Up Podiatric Office Visit: HPI: Lacy Alvarado is a 67 year old female. Patient presents for follow up of Haglunds Deformity, R. Patient reports constant pain to R heel. Rates pain 8-10/10 that is constant burning and achy. Worsened with prolonged walking/use. She has tried meloxicam, boot immobilization, ice, and physical therapy with minimal relief. 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 She is a diabetic, but did not check her blood sugar this AM. She is not a smoker. PCP: Mayda Garcia MD PAST MEDICAL HISTORY Diagnosis Date - Allergic rhinitis 02/06/2009 - Alopecia, unspecified 11/18/2005 - Blepharitis, unspecified 09/13/2007 - CAD (coronary artery disease) 11/24/200711/2007 CT angio-Nonobstructive CAD, <50% lesions in LAD and circ - Chest pain, unspecified - Diabetic - Epilepsy (HCC) 02/06/2009 since childhood - Epilepsy (HCC) - Hypersomnia, unspecified 09/26/2005 - Hypertension - Internal hemorrhoids 04/11/2015 - Iron deficiency anemia secondary to blood loss (chronic) 03/13/2004 - Lipoma of unspecified site 12/30/2007 - Obstructive sleep apnea - Osteopenia 02/06/2009 BMD done ? - Other and unspecified hyperlipidemia 02/06/2009 - Persistent disorder of initiating or maintaining sleep 08/31/2005 - Rheumatoid arthritis(714.0) - Seizures (HCC) - Snoring - Type II or unspecified type diabetes mellitus without mention of complication, not stated as uncontrolled 2007 - Varicose veins of leg with complications 11/29/2007 - Vitamin D deficiency 02/06/2009 Current Outpatient Prescriptions: verapamil SR (CALAN SR, ISOPTIN SR) 240 mg CR tablet Take 0.5 tablets by mouth twice daily. metFORMIN ER (GLUCOPHAGE XR) 500 mg 24 hr tablet Take 1 tablet by mouth twice daily before meals. meloxicam (MOBIC) 7.5 mg tablet Take 1 tablet by mouth once daily. atorvastatin (LIPITOR) 40 mg tablet Take 1 tablet by mouth once daily. gabapentin (NEURONTIN) 600 mg tablet Take 1 tablet by mouth twice daily. hydroxychloroquine (PLAQUENIL) 200 mg tablet Take 1 tablet by mouth twice daily. divalproex DR (DEPAKOTE) 500 mg EC tablet Take 2 tablets by mouth daily at bedtime. losartan (COZAAR) 25 mg tablet Take 1 tablet by mouth once daily. glimepiride (AMARYL) 1 mg tablet Take one with evening meal omeprazole (PRILOSEC) 20 mg capsule Take 1 capsule by mouth twice daily. fcbvjnqy-gbywmdywg-rqntzqpfznsqdj (CORTISPORIN) otic solution Use 3 Drops in the left ear four times daily. (Patient not taking: Reported on 10/15/2017 ) dicyclomine (BENTYL) 10 mg capsule Take 1 capsule by mouth before meals and at bedtime. CPAP New supplies needed, medically necessary. Mask refitting please. autoPAP 8-15 cmH2O, mask, tubing, filters, heated humidity, lifetime supplies. Dx: LINA cholecalciferol (VITAMIN D3) 2,000 unit tablet Take 1 tablet by mouth once daily. Blood-Glucose Meter monitoring kit Glucose Meter of Choice - Kit - Dx: Type 2 DM - Controlled E11.9 blood sugar diagnostic (BLOOD GLUCOSE TEST) test strip Test blood sugar(s) 1x times daily. Dx: Type 2 DM - Controlled E11.9 Insulin: No Lancets lancets Test blood sugar(s) 1x daily. Dx: E11.9. Insulin: No olopatadine (PATANOL) 0.1 % ophthalmic solution Use 1 Drop in both eyes twice daily as needed for Cold/Allergy Symptoms. (Patient not taking: Reported on 10/15/2017 ) nitroglycerin sublingual (NITROSTAT) 0.4 mg SL tablet Dissolve 1 tablet under the tongue as needed. FOR CHEST PAIN. IF NO RELIEF CALL 911 fluticasone (FLONASE) 50 mcg/actuation nasal spray 2 sprays to each nostril once to two times daily. ASPIRIN 81 MG TAB Take one(1) tablet daily. No current facility-administered medications for this visit. ALLERGIES Allergen Reactions - Seasonal Allergies Other: See Comments Cats, Cockroach, Dust mites, molds, weeds PAST SURGICAL HISTORY Procedure Laterality Date - DELIVERY ONLY , low transverse - COLONOSCOP W/ OR W/O BRSH SPEC 01/12/2013 Colonoscopy - EGD W/O OR W/BRUSH/WASH 07/16/15 EGD - HYSTERECTOMY HX 2006 Hysterectomy, supracervical - KNEE SCOPE,DIAGNOSTIC Left 1997 Arthroscopy, knee - PAST SURGICAL HISTORY OF 2011 trigger finger release - PAST SURGICAL HISTORY OF 11-25- 6 days post right 1st dorsal compartment release FAMILY HISTORY Problem Relation Age of Onset - Adopted: Yes - Diabetes Mother With multiple complications, ?possible clotting problem - Unknown [OTHER] Father - Cancer Maternal Grandmother ?Cervical - Glaucoma Sister - Uknown [OTHER] Brother - Unknown [OTHER] Brother - Unknown [OTHER] Brother 1 brother from HIV - Unknown [OTHER] Sister - Unknown [OTHER] Sister Social History Marital status: Single Spouse name: Years of education: Number of children: Occupational History 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 EYES: No diplopia or blurry vision. CARDIOVASCULAR: No chest pain, dyspnea, palpitations, orthopnea, PND, ankle edema. PULM: No dyspnea, unexplained cough. GI: No dysphagia/odynophagia, problematic reflux, constipation, diarrhea, changes in stool habits, hematochezia, melena. : No new urinary complaints, including dysuria, gross hematuria or pyuria. NEURO: No new balance problems, peripheral weakness/paresthesias or numbness of concern. MUSC-SKEL: Right posterior heel pain PSY: No concerns regarding depression, anxiety or panic. INTEGUMENTARY: No new skin changes (rash, new or changing mole, new growth) Physical Exam: Constitutional: Pt is a well developed 67 year old female who is alert, oriented and cooperative Eyes: Following during examination. No redness or drainage. Respiratory: RR normal and nonlabored. Even breathing. No evidence of distress or shortness of breath. Psychology: Patient is engaged during conversation. Normal affect and mood. Does not appear depressed or anxious during encounter. Vascular: Dorsalis pedis and posterior tibial pulses faintly palpable as b/l Capillary Fill time < 5 seconds to digits 1-5 b/l Skin temperature warm to warm proximal to distal b/l Hair growth present to digits Neurological: intact light touch/epicritic sensation Dermatological: Nails 1-5 b/l appear Normal. Webspaces clean and dry 1-4 b/l. Skin appears well hydrated and supple. good color, texture, turgor. Callosities absent. Open lesions absent. Wound: Not present. Musculoskeletal/Orthopaedic: Patient has pain to palpation of right posterior heel at achiles insertion. No palpable tendon tear. Jensen test produces plantarflexion Foot type is neutral structurally AJ ROM is full with knee extended and flexed 1st MPJ is full when loaded and no pain or crepitus are noted with ROM. MTJ, STJ are full and free of pain and crepitus. +5/5 muscle strength dorsiflexion, plantarflexion, inversion, eversion b/l Radiographs: 3 views from last year xray reviewed. There is posterior heel spur present. 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 She has palpable spur and possible early achilles thickening. No evidence of tear on exam. Discussed continued conservative care not limited to physical therapy and inserts vs surgical Intervention to include spur resection, achilles debridement with possible transfer. She wants to try therapy but if this fails to help her, she will consider surgery. Will order pvr for pre-op planning in event therapy fails to help with her pain Discussed risk of rupture of achilles Patient to f/u in 1 month Mynor Flores DPM Referring Provider: MYNOR FLORES [[id number]] Allergies As of Date: 12/09/2017 Noted Allergy Reaction SEASONAL ALLERGIES 01/30/2014 14 - Other: See Comments Comments: Cats, Cockroach, Dust mites, molds, weeds Date Reviewed: 12/09/2017 Reviewed by: Angela Talbot Ma - Fully Assessed Reason for Visit: Heel Pain [1025] Primary Visit Diagnosis:Berenice's deformity, 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] Other Visit Diagnoses:Tendonitis, Achilles, right [M76.61] Diminished pulses in lower extremity [R09.89] Order(s):[facility] [9641134] Order #: [id number] FUTURE CONSULT TO PHYSICAL THERAPY [9032] Order #: [id number]: 1 Prescriptions as of 12/09/2017 Sig: VERAPAMIL ER (SR) 240 MG TABL* Take 0.5 tablets by mouth twi* METFORMIN ER 500 MG TABLET,EX* Take 1 tablet by mouth twice * MELOXICAM 7.5 MG TABLET Take 1 tablet by mouth once d* ATORVASTATIN 40 MG TABLET Take 1 tablet by mouth once d* GABAPENTIN 600 MG TABLET Take 1 tablet by mouth twice * HYDROXYCHLOROQUINE 200 MG TAB* Take 1 tablet by mouth twice * DIVALPROEX 500 MG TABLET,MANDIE* Take 2 tablets by mouth daily* LOSARTAN 25 MG TABLET Take 1 tablet by mouth once d* GLIMEPIRIDE 1 MG TABLET Take one with evening meal OMEPRAZOLE 20 MG CAPSULE,MANDIE* Take 1 capsule by mouth twice* SAZXZPOQ-[id number]-COQBPIKCV * Use 3 Drops in the left ear f* Patient not taking: Reported on 10/15/2017 DICYCLOMINE 10 MG CAPSULE Take 1 capsule by mouth befor* CPAP New supplies needed, medicall* CHOLECALCIFEROL (VITAMIN D3) * Take 1 tablet by mouth once d* BLOOD-GLUCOSE METER KIT Glucose Meter of Choice - Kit* BLOOD SUGAR DIAGNOSTIC STRIPS Test blood sugar(s) 1x times * LANCETS Test blood sugar(s) 1x daily.* OLOPATADINE 0.1 % EYE DROPS Use 1 Drop in both eyes twice* Patient not taking: Reported on 10/15/2017 NITROGLYCERIN 0.4 MG SUBLINGU* Dissolve 1 tablet under the t* FLUTICASONE 50 MCG/ACTUATION * 2 sprays to each nostril once* * ASPIRIN 81 MG TABLET Take one(1) tablet daily. Problem List As Of Date 12/09/2017 Noted Resolved DM w/o Complication Type II [E11.9] INVALID FOR*01/17/2014 More... Epilepsy (HCC) [G40.909] INVALID FOR* More... More... Vitamin D Deficiency [E55.9] INVALID FOR* More... Osteopenia [M85.80] INVALID FOR* More... Arthritis [M19.90] INVALID FOR* More... CAD (coronary artery disease) [I25.10] INVALID FOR* More... Allergic Rhinitis [J30.9] INVALID FOR*08/31/2009 Chronic Rhinitis [J31.0] INVALID FOR* Lipoma of unspecified site [D17.9] INVALID FOR*07/17/2014 Unspecified hereditary and idiopathic periphera*INVALID FOR*09/09/2016 Hyperlipidemia [E78.5] INVALID FOR*07/17/2014 Trigger thumb of left hand [M65.312] INVALID FOR*11/06/2011 Trigger thumb of left hand [M65.312] INVALID FOR*01/12/2012 Thyroid nodule [E04.1] INVALID FOR* More... Pain in joint, lower leg [M25.569] INVALID FOR*07/17/2014 LINA (obstructive sleep apnea) [G47.33] INVALID FOR* More... Stenosing tenosynovitis of wrist [M65.88] INVALID FOR*07/17/2014 Tendonitis, Achilles, right [M76.61] INVALID FOR*07/17/2014 Hyperlipemia [E78.5] INVALID FOR* Achilles bursitis or tendinitis [M76.60] INVALID FOR*07/17/2014 DM2 (diabetes mellitus, type 2) (HCC) [E11.9] INVALID FOR* More... Thoracic or lumbosacral neuritis or radiculitis*INVALID FOR*07/17/2014 Left knee pain [M25.562] INVALID FOR* More... Arthritis of knee, left [M17.12] INVALID FOR*07/17/2014 Foot fracture [S92.909A] INVALID FOR*08/14/2016 Tendonitis, Achilles, right [M76.61] INVALID FOR*04/15/2016 Heel pain [M79.673] INVALID FOR*04/15/2016 Internal hemorrhoids [K64.8] INVALID FOR*04/15/2016 Blood per rectum [K62.5] INVALID FOR*04/15/2016 Essential hypertension [I10] INVALID FOR* Osteoarthritis of spine with radiculopathy, lum*INVALID FOR* DDD (degenerative disc disease), lumbar [M51.36]INVALID FOR* Encounter Status:Closed by MYNOR FLORES DPM on 12/09/17 CBC W/DIFF, AUTOMATED Collected: 10/20/2017 Status: F Source: [place] 8:52 AM [facility] REPOSITORY Order Comment: DR. GARCIA ORDERED LIPID AND VIT D DR. ROWLAND ORDERED CMP AND CBCD TYPE CODE TESTS RESULT OUT OF RANGE REFERENCE UNITS LAB L100.1000 4.4-11.0 K/mm3 Low WBC 4.3 LAB L100.1200 4.2-5.4 M/mm3 Low RBC 3.99 LAB L100.1300 12.0-15.0 g/dl Normal HGB 12.5 LAB L100.1400 37-47 % Normal HCT 37.8 LAB L100.1500 81-99 fL Normal MCV 94.7 LAB L100.1600 27.0-32.0 pg Normal MCH 31.3 LAB L100.1700 32-36 g/gl Normal MCHC 33.1 LAB L100.1810 11.6-14.6 % Normal RDW CV 13.0 LAB L100.1820 35.1-43.9 fl High RDW SD 44.0 LAB L100.1900 150-450 K/mm3 Normal PLT 225 LAB L100.2000 6.2-12.0 fl Normal MPV 10.9 LAB L100.2100 47-70 % Normal NEUT% 56.3 LAB L100.2200 19-41 % Normal LY% 33.2 LAB L100.2300 0-10 % Normal MONO% 8.4 LAB L100.2400 0-5 % Normal EO% 1.9 LAB L100.2500 0-1 % Normal BASO% 0.2 LAB L100.2550 0.0-0.9 % Normal IM GRAN % 0.000 Result Comment: IG% - Immature Granulocytes (promyelocytes, myelocytes and metamyelocytes) > 1% indicates that a LEFT SHIFT is Present. LAB L100.2620 2.0-7.7 X10 3/uL Normal Absolute Neut 2.4 LAB L100.2720 0.83-4.51 X10 3/ul Normal Absolute Lymph 1.42 Performed By: #### L100.0100 #### [facility] [address] [place], [address] COMPREHENSIVE METABOLIC Collected: 10/20/2017 Status: F Source: [place] [facility] 8:49 AM [facility] REPOSITORY Order Comment: Comments: Fasting DR. GARCIA ORDERED VIT D AND LIPID DR. ROWLAND ORDERED CMP AND CBCD Comments: Fasting TYPE CODE TESTS RESULT OUT OF RANGE REFERENCE UNITS LAB L501.0100 74-106 mg/dL High GLU 118 Result Comment: Fasting Glucose result from 100 to 125 mg/dL suggests IMPAIRED HOMEOSTASIS per A.D.A. criteria. Please note revised GLUCOSE reference range effective 2017. LAB L501.1000 7-18 mg/dL Normal BUN 16 LAB L501.1100 0.55-1.02 mg/dL Normal CREAT,SERUM 0.89 Result Comment: The validity of the calculated GFR AND GFRAA in patients over 70 years has not been determined. Clinical correlation is essential. LAB L501.1110 >60 mL/min Normal EST GFR 68 Result Comment: Non- GFR Calc LAB L501.1115 >60 mL/min Normal EST GFR - AA 82 Result Comment: GFR Calc LAB L501.1300 10-20 RATIO Normal BUN/CRE 18.0 LAB L501.1500 6.4-8.2 g/dL T Normal PROT 7.5 LAB L501.1800 3.2-5.0 g/dL Normal ALB 3.3 LAB L501.1950 2.2-4.2 g/dL Normal GLOB 4.2 LAB L501.2000 0.9-2.4 RATIO Low A/G 0.8 LAB L501.2200 8.5-10.1 mg/dL Low CA 8.4 LAB L501.4100 15-37 U/L Normal AST 24 LAB L501.4305 45-117 U/L Normal ALK P 112 LAB L501.4405 13-56 U/L Normal ALT 36 LAB L501.4600 0.20-1.00 mg/dL T Normal BILI 0.30 LAB L501.5300 136-145 mmol/L NA Normal 142 LAB L501.5600 3.5-5.1 mmol/L K Normal 4.3 LAB L501.5900 98-107 mmol/L CL Normal 106 LAB L501.6100 21.0-32.0 mmol/L Normal CO2 30.0 LAB L501.6200 5-15 Normal GAP 6 Performed By: #### L500.4050, L500.4100 #### [facility] [address] [place], [place], [id number] LIPID PROFILE Collected: 10/20/2017 Status: F Source: [place] 8:49 AM [facility] REPOSITORY Order Comment: Comments: Fasting DR. GARCIA ORDERED VIT D AND LIPID DR. ROWLAND ORDERED CMP AND CBCD Comments: Fasting TYPE CODE TESTS RESULT OUT OF RANGE REFERENCE UNITS LAB L501.4900 200 mg/dL Normal CHOL 169 Result Comment: <200 mg/dL Desirable 200-240 mg/dL Borderline >240 mg/dL High Risk LAB L501.5000 mg/dL Normal TRIG 99 Result Comment: The drugs N-Acetylcysteine and Metamizole may falsely depress this assay. Serum Triglycerides Reference Interval Normal <150 mg/dL Borderline high 150 - 199 mg/dL High 200 - 499 mg/dL Very High > or = 500 mg/dL LAB L501.6400 mg/dL Low HDL 39 Result Comment: The drugs N-Acetylcysteine and Metamizole may falsely depress this assay. Reference Range HDL <40 mg/dL Low HDL Cholesterol HDL >or= 60 mg/dL High HDL Cholesterol LAB L501.6500 0-130 mg/dL Normal LDL 110 LAB L501.6600 5-40 mg/dL Normal VLDL 20 Performed By: #### L500.4050, L500.4100 #### [facility] [address] [place], [address] VITAMIN D,25 HYDROXY Collected: 10/20/2017 Status: F Source: [place] 8:49 AM [facility] REPOSITORY TYPE CODE TESTS RESULT OUT OF REFERENCE UNITS RANGE LAB L506.1000 29.95-100.01 ng/mL Low Vitamin D 19.9 25-OH Result Comment: Vitamin D 25(OH) Status Range Deficiency <20 ng/mL (50nmol/L) Insuffciency 20 - 30 ng/mL (50 - 75 nmol/L) Sufficiency 30 - 100 ng/mL (75 - 250 nmol/L) Toxicity >100 ng/mL (>250 nmol/L) Performed By: #### L506.1000 #### [facility] [address] [place], [address] ECHOCARDIOGRAM COMPLETE Observed: 10/19/2017 Status: F Source: [place] 3:34 PM [facility] REPOSITORY [facility] Cardiovascular Services [address] [place] [address] Echo Complete 10/19/17918 MR#: [id number] Acct: [id number] Name: LACY ALVARADO Rep #: [id number] : 1950 66 From: Winston Koch MD Attending Dr: Winston Koch MD Status: REG CLI Ordering Dr: Winston Koch MD Date: 10/19/17 Location: CVS Sex: F AA Admitted: Reason For Study: DYSPNEA Procedure This was a 2D Doppler, Color Flow transthoracic echocardiogram. Exam performed in department. Left Ventricle Normal left ventricle. Left ventricular systolic function is normal. The estimated ejection fraction is 60 %. Transmitral diastolic flow velocities suggest mild (stage 1) diastolic dysfunction (reversed pattern). No regional wall motion abnormalities noted. Right Ventricle Normal RV size. Normal systolic function. Atria Normal left atrium. Normal right atrium. Bubble contrast study negative for right to left interatrial shunt. Mitral Valve Normal mitral valve. Tricuspid Valve Normal tricuspid valve. Mild (1+) tricuspid valve insufficiency. Pulmonary artery systolic pressure is 26 mmHg. Aortic Valve Normal aortic valve. Trisinus/trileaflet aortic valve. Pulmonic Valve Normal pulmonic valve. Great Vessels Normal aortic root. The pulmonary artery is normal size. Normal inferior vena cava. Pericardium/Pleural No pericardial effusion. Medication Performed a rapid injection of agitated mix of 9 cc saline and 1cc air to assess for atrial septal defect. MMode/2D Measurements AND Calculations LVIDd: 4.2 cm IVSd: 0.98 cm Ao root diam: 2.7 cm LVIDs: 2.7 cm LVPWd: 1.0 cm RVDd: 2.7 cm FS: 36.0 % LAV(MOD-bp): 50.8 ml EDV(MOD-sp4): 70.9 ml EDV(MOD-sp2): 39.9 ml LAV(MOD-bp) Indexed: 27.8 ml/m2 ESV(MOD-sp4): 25.5 ml EF(MOD-sp2): 65.3 % LAV(MOD-sp2): 46.2 ml EF(MOD-sp4): 64.1 % LAV(MOD-sp4): 51.3 ml SV(MOD-sp4): 45.4 ml SV(MOD-sp2): 26.0 ml LA A4 area: 18.2 cm2 RA A4 area: 13.1 cm2 Doppler Measurements AND Calculations MV E max martha: 63.5 cm/sec Lat Peak E' Martha: 4.1 cm/sec Med Peak E' Martha: 5.6 cm/sec MV A max martha: 85.8 cm/sec E/E' lat: 15.6 E/E' med: 11.3 MV E/A: 0.74 Ao V2 max: 120.9 cm/sec LV V1 max: 111.2 cm/sec TR max martha: 234.2 cm/sec Ao max P.8 mmHg LV V1 max P.9 mmHg TR max P.0 mmHg Interpretation Summary Normal left ventricle. Left ventricular systolic function is normal. The estimated ejection fraction is 60 %. Transmitral diastolic flow velocities suggest mild (stage 1) diastolic dysfunction (reversed pattern). Bubble contrast study negative for right to left interatrial shunt. Ordering Physician: WINSTON KOCH Referring Physician: MAYDA GARCIA Performed By: Christin Vicente, YUMIKO, RVT 10/19/17 1526 Date Winston Koch MD CC: Winston Koch MD; Mayda Garcia MD Date Dictated: 10/19/17 0919 Date Transcribed: 10/19/17 1526 Yarn Texturing Machine Operator: Signed STRESS REPORT Observed: 10/19/2017 Status: F Source: [place] 12:10 PM [facility] REPOSITORY [facility] Cardiovascular Services [address] [place], [place] [address] [address] MR#: [id number] Acct: [id number] Name: LACY ALVARADO Rep #: [id number] : 1950 66 From: Winston Koch MD Primary Care: Mayda Garcia MD Status: REG CLI Ordering Dr: Sex: F AA Stress Test Report Exercise myocardial perfusion stress test. 66-year-old lady with a history of shortness of breath and dyspnea on exertion. Medications Metformin and Amaryl Plaquenil and Lipitor Cozaar. Stress protocol: Resting EKG demonstrates normal sinus rhythm with a rate of 83 beats minute normal intervals and noted resting blood pressure is 126/78 mmHg. The patient exercised according to regular Eldon protocol for a total duration of 9 minutes completing stage III of the Eldon protocol. The maximum heart rate attained was 142 bpm which was 91% of maximum predicted heart rate the maximum workload attained was 10.1 metabolic equivalents. At rest were no ST or T-wave changes noted suggest ischemia at peak exercise upsloping ST changes only were noted with no meet the criteria for ischemia. No clinical angina was noted the test was terminated due to leg fatigue. The resting blood pressure is 126/78 with a peak blood pressure 160/68 rate pressure product was 22,500. Myocardial perfusion protocol. 11.7 mCi of technetium 99m sestamibi was injected at rest. The patient exercised according to regular [place]on protocol for total duration of 9 minutes attaining 10.1 metabolic equivalents at peak exercise 33.3 mCi of technetium 99m sestamibi was injected stress images were obtained stress and rest images were reconstructed and compared in the short axis vertical long and horizontal long axis. Gated images were also obtained pre- Perfusion SPECT analysis. Review of the stress images demonstrate normal uptake of tracer noted in all areas of the myocardium. The resting images similarly demonstrate normal uptake of tracer noted in all areas of myocardium. No areas of reversibility are noted suggest ischemia and no previous infarct is noted. Gated SPECT analysis. The gated ejection fraction is noted to be 70%. Conclusion: Normal exercise myocardial perfusion stress test at a high workload. Preserved ejection fraction. 10/19/17 1210 <Electronically signed by Winston Koch MD> Date Winston Koch MD CC: Winston Koch MD; Mayda Garcia MD Date Dictated: 10/19/171205 Date Transcribed: 10/19/171205 Yarn Texturing Machine Operator: CO Signed PROGRESS Observed: 10/15/2017 Status: COMPLETED Source: [place] 9:37 AM [facility] REPOSITORY HNO ID: [id number] Author: Jossue Finley Service: (none) Author Type: Physician Type: Progress Notes Filed: 10/15/2017 4:13 PM Note Text: Jossue Finley MD Department of Orthopaedics Orthopaedics [address] [facility] [address] Dept: [phone] Dept October 15, 2017 CHIEF COMPLAINT: new problem (left knee pain, xray. last seen 03-11-16 for ganglion cyst left 2nd finger) Ms. Lacy Alvarado is a 66 year old female returns with a new problem that we have previously taking care of many years ago. She presents with 10 out of 10 pain in the left knee that's burning and aching and sharp and stabbing at times. This has worsened over the past month. Pretty much continuous at this time. She was kneeling down and developed pain on the outer portion of the knee. She feels some instability in the knee at times when the pain comes. She takes meloxicam on a regular basis. She's had previous arthroscopy in the left knee. ASSESSMENT: M25.562, G89.29 Chronic pain of left knee (primary encounter diagnosis) M17.12 Primary osteoarthritis of left knee PLAN: I recommend a strengthening program, continuing her mobile taken as well as a cortisone injection today. Ms. Lacy Alvarado was advised as to contrast therapies and/or to take analgesics/anti-inflammatories as needed and all contraindications were reviewed. OBJECTIVE: Ms. Lacy Alvarado is a pleasant 66 year old in no apparent distress. Gen:There were no vitals taken for this visit. nl development, non obese, no deformities ENT: Normocephalic, normal hearing, moist mucosa CV: Pulses:DP/PT= 2+ and symmetric, capillary refill < 2 secs, no peripheral edema/varicosities Skin: no rash, bruising or lesions. Good turgor. Psych: cooperative and appropriate, alert and oriented x 3, good mood and affect. Musculoskeletal: Patient walks with antalgia, normal station. Hip motion without pain. Knee with mild effusion. Patella tracks with mild laterality. There is no patellar crepitance. positive pain along the lateral facets. Range of motion 0?125 degrees. mild medial, without lateral joint line pain on palpation. Ligamentous exam stable on varus and valgus stress testing at 0 and 30 degrees. Angie's examination is negative. Posterior drawer is negative. Negative McMurrays, without palpable click. Extremity is warm and well perfused. Sensation is grossly intact to light touch, subjectively. Progress note: The risk, benefits and alternatives of injection and no injection therapy were discussed. The patient consented for an injection. Time out was conducted. The injection site was prepped with a Chlorhexadine swab. The left Superolateral joint was injected with a 25 gauge needle with 1 cc (6 mg) Celestone, 5 cc Marcaine 0.5% . The injection site was then dressed with a bandaid. The patient tolerated the injection well. The patient was instructed to call the office if any adverse local effects occurred or any if any questions or concerns arise. Jossue Finley MD Imaging: IMPRESSION: MILD DEGENERATIVE JOINT DISEASE. Yarn Texturing Machine Operator: PSCB ? Transcribe Date/Time: Oct 14 2017 12:16P Dictated by : CHRIS FRANCIS MD This examination was interpreted and the report reviewed and electronically signed by: CHRIS FRANCIS MD on Oct 14 2017 12:20PM ?EST Results-Findings * * *Final Report* * * DATE OF EXAM: Oct 14 2017 ?9:01AM ? WRX ? 5202 ?- ?XR KNEE 4V AP/PA BOTH+LAT/VÍCTOR LT ?/ PROCEDURE REASON: pain ?? ? * * * * Physician Interpretation * * * * ?HISTORY: 66-YEAR-OLD FEMALE WITH ? pain. ?left knee lateral side pain for a couple months pt states/no known injuries TECHNIQUE: XR KNEE 4V AP/PA BOTH+LAT/VÍCTOR LT ?? Laterality: ?LEFT ?? Number of different views (projections): 4 COMPARISON: 05/15/14 RESULT: ?Mild medial compartment narrowing. ?Patellofemoral joint is mildly narrowed laterally. ?Small osteophytes about the medial compartment knee joint. ?Enthesophyte on patella at insertion quadriceps tendon. ?Tiny osteophytes at the patellofemoral joint. ?No joint effusion. ?No fracture. Supporting Subjective Information Below: Past Surgical History: PAST SURGICAL HISTORY Procedure Laterality Date - DELIVERY ONLY , low transverse - [facility]/12/2013 Colonoscopy - EGD W/O OR W/BRUSH/WASH 07/16/15 EGD - HYSTERECTOMY HX 2006 Hysterectomy, supracervical - KNEE SCOPE,DIAGNOSTIC Left 1997 Arthroscopy, knee - PAST SURGICAL HISTORY OF 2011 trigger finger release - PAST SURGICAL HISTORY OF 11-25-13 6 days post right 1st dorsal compartment release Medications: Current Outpatient Prescriptions: verapamil SR (CALAN SR, ISOPTIN SR) 240 mg CR tablet Take 0.5 tablets by mouth twice daily. metFORMIN ER (GLUCOPHAGE XR) 500 mg 24 hr tablet Take 1 tablet by mouth twice daily before meals. meloxicam (MOBIC) 7.5 mg tablet Take 1 tablet by mouth once daily. atorvastatin (LIPITOR) 40 mg tablet Take 1 tablet by mouth once daily. gabapentin (NEURONTIN) 600 mg tablet Take 1 tablet by mouth twice daily. hydroxychloroquine (PLAQUENIL) 200 mg tablet Take 1 tablet by mouth twice daily. divalproex DR (DEPAKOTE) 500 mg EC tablet Take 2 tablets by mouth daily at bedtime. losartan (COZAAR) 25 mg tablet Take 1 tablet by mouth once daily. glimepiride (AMARYL) 1 mg tablet Take one with evening meal omeprazole (PRILOSEC) 20 mg capsule Take 1 capsule by mouth twice daily. dicyclomine (BENTYL) 10 mg capsule Take 1 capsule by mouth before meals and at bedtime. CPAP New supplies needed, medically necessary. Mask refitting please. autoPAP 8-15 cmH2O, mask, tubing, filters, heated humidity, lifetime supplies. Dx: LINA cholecalciferol (VITAMIN D3) 2,000 unit tablet Take 1 tablet by mouth once daily. Blood-Glucose Meter monitoring kit Glucose Meter of Choice - Kit - Dx: Type 2 DM - Controlled E11.9 blood sugar diagnostic (BLOOD GLUCOSE TEST) test strip Test blood sugar(s) 1x times daily. Dx: Type 2 DM - Controlled E11.9 Insulin: No Lancets lancets Test blood sugar(s) 1x daily. Dx: E11.9. Insulin: No nitroglycerin sublingual (NITROSTAT) 0.4 mg SL tablet Dissolve 1 tablet under the tongue as needed. FOR CHEST PAIN. IF NO RELIEF CALL 911 fluticasone (FLONASE) 50 mcg/actuation nasal spray 2 sprays to each nostril once to two times daily. ASPIRIN 81 MG TAB Take one(1) tablet daily. ddgdrttb-yfxodzbki-goaojvijklhhoa (CORTISPORIN) otic solution Use 3 Drops in the left ear four times daily. (Patient not taking: Reported on 10/15/2017 ) olopatadine (PATANOL) 0.1 % ophthalmic solution Use 1 Drop in both eyes twice daily as needed for Cold/Allergy Symptoms. (Patient not taking: Reported on 10/15/2017 ) Current Facility-Administered Medications: [COMPLETED] betamethasone acetate-betamethasone sodium phosphate 6 mg, bupivacaine (PF) 25 mg INTRA-ARTICULAR ONCE Allergies: Seasonal Allergies ROS: General (negative for fatigue, malaise, weight loss/gain) HEENT (negative for headache, earache, recent vision changes, sinus pain, sore throat) Respiratory (no recent shortness of breath, hemoptysis) CV (negative for chest tightness, palpitations) Musculoskeletal (see HPI) Psych (no depression, anxiety) This note was partially generated using AssertID voice recognition system, and there may be some incorrect words, spellings, and punctuation that were not noted in checking the note before saving. Jossue Finley MD PROGRESS Observed: 10/15/2017 Status: COMPLETED Source: [place] 8:56 AM [facility] REPOSITORY O ID: [id number] Author: Norma Leone RN Service: (none) Author Type: (none) Type: Progress Notes Filed: 10/15/2017 4:13 PM Note Text: AMB ROOMING INTAKE FLOWSHEET DATA Risk Screening Do you have concerns about personal safety or safety in the home?: No Pain Pain Score: 10/10 Pain Location: Knee-Left Description: Aching, Sharp, Stabbing, Burning Duration Amount of Time: 1 Duration Units: Months Frequency: Continuous .Patient presents with: new problem: left knee pain, xray. last seen 03-11-16 for ganglion cyst left 2nd finger Pt. presents with burning knee pain lateral left patella region x one month without injury. 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 She does feel some instability, but denies locking. She has not fallen. She takes meloxicam regularly. She just wants to make sure there is nothing grossly abnormal. Pain is the worst when kneeling. Incidentally, she had fall on elevator years ago and had left knee arthroscopy in approximately 1997 to clean out knee afterward to clean out scar tissue. CNOV Observed: 10/15/2017 Status: COMPLETED Source: [place] 8:10 AM [facility] REPOSITORY Office Visit (ORTHWS) LACY ALVARADO ([id number]) 1950 F Date Time Provider Department 10/15/17 8:10 AM JOSSUE FINLEY During your visit today, we recorded the following information about you: Norma Leone RN 10/15/2017 4:13 PM Signed AMB ROOMING INTAKE FLOWSHEET DATA Risk Screening Do you have concerns about personal safety or safety in the home?: No Pain Pain Score: 10/10 Pain Location: Knee-Left Description: Aching, Sharp, Stabbing, Burning Duration Amount of Time: 1 Duration Units: Months Frequency: Continuous .Patient presents with: new problem: left knee pain, xray. last seen 03-11-16 for ganglion cyst left 2nd finger Pt. presents with burning knee pain lateral left patella region x one month without injury. 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 She does feel some instability, but denies locking. She has not fallen. She takes meloxicam regularly. She just wants to make sure there is nothing grossly abnormal. Pain is the worst when kneeling. Incidentally, she had fall on elevator years ago and had left knee arthroscopy in approximately 1997 to clean out knee afterward to clean out scar tissue. Jossue Finley MD 10/15/2017 4:13 PM Signed Jossue Finley MD Department of Orthopaedics Orthopaedics [address] [facility] [address] Dept: [phone] Dept October 15, 2017 CHIEF COMPLAINT: new problem (left knee pain, xray. last seen 03-11-16 for ganglion cyst left 2nd finger) Ms. Lacy Alvarado is a 66 year old female returns with a new problem that we have previously taking care of many years ago. She presents with 10 out of 10 pain in the left knee that's burning and aching and sharp and stabbing at times. This has worsened over the past month. Pretty much continuous at this time. She was kneeling down and developed pain on the outer portion of the knee. She feels some instability in the knee at times when the pain comes. She takes meloxicam on a regular basis. She's had previous arthroscopy in the left knee. ASSESSMENT: M25.562, G89.29 Chronic pain of left knee (primary encounter diagnosis) M17.12 Primary osteoarthritis of left knee PLAN: I recommend a strengthening program, continuing her mobile taken as well as a cortisone injection today. Ms. Lacy Alvarado was advised as to contrast therapies and/or to take analgesics/anti-inflammatories as needed and all contraindications were reviewed. OBJECTIVE: Ms. Lacy Alvarado is a pleasant 66 year old in no apparent distress. Gen:There were no vitals taken for this visit. nl development, non obese, no deformities ENT: Normocephalic, normal hearing, moist mucosa CV: Pulses:DP/PT= 2+ and symmetric, capillary refill < 2 secs, no peripheral edema/varicosities Skin: no rash, bruising or lesions. Good turgor. Psych: cooperative and appropriate, alert and oriented x 3, good mood and affect. Musculoskeletal: Patient walks with antalgia, normal station. Hip motion without pain. Knee with mild effusion. Patella tracks with mild laterality. There is no patellar crepitance. positive pain along the lateral facets. Range of motion 0?125 degrees. mild medial, without lateral joint line pain on palpation. Ligamentous exam stable on varus and valgus stress testing at 0 and 30 degrees. Angie's examination is negative. Posterior drawer is negative. Negative McMurrays, without palpable click. Extremity is warm and well perfused. Sensation is grossly intact to light touch, subjectively. Progress note: The risk, benefits and alternatives of injection and no injection therapy were discussed. The patient consented for an injection. Time out was conducted. The injection site was prepped with a Chlorhexadine swab. The left Superolateral joint was injected with a 25 gauge needle with 1 cc (6 mg) Celestone, 5 cc Marcaine 0.5% . The injection site was then dressed with a bandaid. The patient tolerated the injection well. The patient was instructed to call the office if any adverse local effects occurred or any if any questions or concerns arise. Jossue Finley MD Imaging: IMPRESSION: MILD DEGENERATIVE JOINT DISEASE. Yarn Texturing Machine Operator: PSCB ? Transcribe Date/Time: Oct 14 2017 12:16P Dictated by : CHRIS FRANCIS MD This examination was interpreted and the report reviewed and electronically signed by: CHRIS FRANCIS MD on Oct 14 2017 12:20PM ?EST Results-Findings * * *Final Report* * * DATE OF EXAM: Oct 14 2017 ?9:01AM ? WRX ? 5202 ?- ?XR KNEE 4V AP/PA BOTH+LAT/VÍCTOR LT ?/ PROCEDURE REASON: pain ?? ? * * * * Physician Interpretation * * * * ?HISTORY: 66-YEAR-OLD FEMALE WITH ? pain. ?left knee lateral side pain for a couple months pt states/no known injuries TECHNIQUE: XR KNEE 4V AP/PA BOTH+LAT/VÍCTOR LT ?? Laterality: ?LEFT ?? Number of different views (projections): 4 COMPARISON: 05/15/14 RESULT: ?Mild medial compartment narrowing. ?Patellofemoral joint is mildly narrowed laterally. ?Small osteophytes about the medial compartment knee joint. ?Enthesophyte on patella at insertion quadriceps tendon. ?Tiny osteophytes at the patellofemoral joint. ?No joint effusion. ?No fracture. Supporting Subjective Information Below: Past Surgical History: PAST SURGICAL HISTORY Procedure Laterality Date - DELIVERY ONLY , low transverse - COLONOSCOP W/ OR W/O BRSH SPEC 01/12/2013 Colonoscopy - EGD W/O OR W/BRUSH/WASH 07/16/15 EGD - HYSTERECTOMY HX 2006 Hysterectomy, supracervical - KNEE SCOPE,DIAGNOSTIC Left 1997 Arthroscopy, knee - PAST SURGICAL HISTORY OF 2011 trigger finger release - PAST SURGICAL HISTORY OF 11-25-13 6 days post right 1st dorsal compartment release Medications: Current Outpatient Prescriptions: verapamil SR (CALAN SR, ISOPTIN SR) 240 mg CR tablet Take 0.5 tablets by mouth twice daily. metFORMIN ER (GLUCOPHAGE XR) 500 mg 24 hr tablet Take 1 tablet by mouth twice daily before meals. meloxicam (MOBIC) 7.5 mg tablet Take 1 tablet by mouth once daily. atorvastatin (LIPITOR) 40 mg tablet Take 1 tablet by mouth once daily. gabapentin (NEURONTIN) 600 mg tablet Take 1 tablet by mouth twice daily. hydroxychloroquine (PLAQUENIL) 200 mg tablet Take 1 tablet by mouth twice daily. divalproex DR (DEPAKOTE) 500 mg EC tablet Take 2 tablets by mouth daily at bedtime. losartan (COZAAR) 25 mg tablet Take 1 tablet by mouth once daily. glimepiride (AMARYL) 1 mg tablet Take one with evening meal omeprazole (PRILOSEC) 20 mg capsule Take 1 capsule by mouth twice daily. dicyclomine (BENTYL) 10 mg capsule Take 1 capsule by mouth before meals and at bedtime. CPAP New supplies needed, medically necessary. Mask refitting please. autoPAP 8-15 cmH2O, mask, tubing, filters, heated humidity, lifetime supplies. Dx: LINA cholecalciferol (VITAMIN D3) 2,000 unit tablet Take 1 tablet by mouth once daily. Blood-Glucose Meter monitoring kit Glucose Meter of Choice - Kit - Dx: Type 2 DM - Controlled E11.9 blood sugar diagnostic (BLOOD GLUCOSE TEST) test strip Test blood sugar(s) 1x times daily. Dx: Type 2 DM - Controlled E11.9 Insulin: No Lancets lancets Test blood sugar(s) 1x daily. Dx: E11.9. Insulin: No nitroglycerin sublingual (NITROSTAT) 0.4 mg SL tablet Dissolve 1 tablet under the tongue as needed. FOR CHEST PAIN. IF NO RELIEF CALL 911 fluticasone (FLONASE) 50 mcg/actuation nasal spray 2 sprays to each nostril once to two times daily. ASPIRIN 81 MG TAB Take one(1) tablet daily. gusfxajy-acgbkhuic-dbpfhpqscthaqd (CORTISPORIN) otic solution Use 3 Drops in the left ear four times daily. (Patient not taking: Reported on 10/15/2017 ) olopatadine (PATANOL) 0.1 % ophthalmic solution Use 1 Drop in both eyes twice daily as needed for Cold/Allergy Symptoms. (Patient not taking: Reported on 10/15/2017 ) Current Facility-Administered Medications: [COMPLETED] betamethasone acetate-betamethasone sodium phosphate 6 mg, bupivacaine (PF) 25 mg INTRA-ARTICULAR ONCE Allergies: Seasonal Allergies ROS: General (negative for fatigue, malaise, weight loss/gain) HEENT (negative for headache, earache, recent vision changes, sinus pain, sore throat) Respiratory (no recent shortness of breath, hemoptysis) CV (negative for chest tightness, palpitations) Musculoskeletal (see HPI) Psych (no depression, anxiety) This note was partially generated using AssertID voice recognition system, and there may be some incorrect words, spellings, and punctuation that were not noted in checking the note before saving. Jossue Finley MD Referring Provider: JOSSUE FINLEY [[id number]] Allergies As of Date: 10/15/2017 Noted Allergy Reaction SEASONAL ALLERGIES 01/30/2014 14 - Other: See Comments Comments: Cats, Cockroach, Dust mites, molds, weeds Date Reviewed: 10/15/2017 Reviewed by: Jossue Finley - Fully Assessed Reason for Visit: new problem [Other] Cmt: left knee pain, xray. last seen 03-11-16 for ganglion cyst left 2nd finger Primary Visit Diagnosis:Chronic pain of left knee [M25.562, G89.29] Other Visit Diagnosis:Primary osteoarthritis of left knee [M17.12] Order(s):[] betamethasone acetate-betamethasone sodium phosphate 6 mg, bupivacaine (PF) 25 mgDisp: Rfl: Prescriptions as of 10/15/2017 Sig: VERAPAMIL ER (SR) 240 MG TABL* Take 0.5 tablets by mouth twi* METFORMIN ER 500 MG TABLET,EX* Take 1 tablet by mouth twice * MELOXICAM 7.5 MG TABLET Take 1 tablet by mouth once d* ATORVASTATIN 40 MG TABLET Take 1 tablet by mouth once d* GABAPENTIN 600 MG TABLET Take 1 tablet by mouth twice * HYDROXYCHLOROQUINE 200 MG TAB* Take 1 tablet by mouth twice * DIVALPROEX 500 MG TABLET,MANDIE* Take 2 tablets by mouth daily* LOSARTAN 25 MG TABLET Take 1 tablet by mouth once d* GLIMEPIRIDE 1 MG TABLET Take one with evening meal OMEPRAZOLE 20 MG CAPSULE,MANDIE* Take 1 capsule by mouth twice* DICYCLOMINE 10 MG CAPSULE Take 1 capsule by mouth befor* CPAP New supplies needed, medicall* CHOLECALCIFEROL (VITAMIN D3) * Take 1 tablet by mouth once d* BLOOD-GLUCOSE METER KIT Glucose Meter of Choice - Kit* BLOOD SUGAR DIAGNOSTIC STRIPS Test blood sugar(s) 1x times * LANCETS Test blood sugar(s) 1x daily.* NITROGLYCERIN 0.4 MG SUBLINGU* Dissolve 1 tablet under the t* FLUTICASONE 50 MCG/ACTUATION * 2 sprays to each nostril once* * ASPIRIN 81 MG TABLET Take one(1) tablet daily. [id number]-[id number]-[id number] * Use 3 Drops in the left ear f* Patient not taking: Reported on 10/15/2017 OLOPATADINE 0.1 % EYE DROPS Use 1 Drop in both eyes twice* Patient not taking: Reported on 10/15/2017 Problem List As Of Date 10/15/2017 Noted Resolved DM w/o Complication Type II [E11.9] INVALID FOR*01/17/2014 More... Epilepsy (HCC) [G40.909] INVALID FOR* More... More... Vitamin D Deficiency [E55.9] INVALID FOR* More... Osteopenia [M85.80] INVALID FOR* More... Arthritis [M19.90] INVALID FOR* More... CAD (coronary artery disease) [I25.10] INVALID FOR* More... Allergic Rhinitis [J30.9] INVALID FOR*08/31/2009 Chronic Rhinitis [J31.0] INVALID FOR* Lipoma of unspecified site [D17.9] INVALID FOR*07/17/2014 Unspecified hereditary and idiopathic periphera*INVALID FOR*09/09/2016 Hyperlipidemia [E78.5] INVALID FOR*07/17/2014 Trigger thumb of left hand [M65.312] INVALID FOR*11/06/2011 Trigger thumb of left hand [M65.312] INVALID FOR*01/12/2012 Thyroid nodule [E04.1] INVALID FOR* More... Pain in joint, lower leg [M25.569] INVALID FOR*07/17/2014 LINA (obstructive sleep apnea) [G47.33] INVALID FOR* More... Stenosing tenosynovitis of wrist [M65.88] INVALID FOR*07/17/2014 Tendonitis, Achilles, right [M76.61] INVALID FOR*07/17/2014 Hyperlipemia [E78.5] INVALID FOR* Achilles bursitis or tendinitis [M76.60] INVALID FOR*07/17/2014 DM2 (diabetes mellitus, type 2) (HCC) [E11.9] INVALID FOR* More... Thoracic or lumbosacral neuritis or radiculitis*INVALID FOR*07/17/2014 Left knee pain [M25.562] INVALID FOR* More... 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 10/15/2017 10/15/2017 Class: Suppress Questions Route: [facility] Encounter Status:Closed by JOSSUE FINLEY MD on 10/15/17 PROGRESS Observed: 10/14/2017 Status: COMPLETED Source: [place] 9:02 AM [facility] REPOSITORY [facility] ID: [id number] Author: John Paul Frias (Tech) Service: (none) 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 PATIENT GENDER DATA: Female. status: : No status: NO. PATIENT RELEVANT IMPLANT DATA REVIEWED: Not Applicable RADIOLOGY DEPARTMENT: General X-ray: Exam(s) Completed: Lower Extremity X-Ray(s): Knee, AP / Lat / Tunne / Merchant Left and Wt. Bearing: PERIPHERAL IV DATA: Not applicable SIGNED BY: John Paul Dozier October 14, 2017 9:02 AM XR KNEE 4V AP/PA Observed: 10/14/2017 Status: F Source: [place] BOTH+LAT/VÍCTOR LT 9:01 AM [facility] REPOSITORY * * *Final Report* * * DATE OF EXAM: Oct 14 2017 9:01AM WRX 5202 - XR KNEE 4V AP/PA BOTH+LAT/VÍCTOR LT / PROCEDURE REASON: pain * * * * Physician Interpretation * * * * HISTORY: 66-YEAR-OLD FEMALE WITH pain. left knee lateral side pain for a couple months pt states/no known injuries TECHNIQUE: XR KNEE 4V AP/PA BOTH+LAT/VÍCTOR LT Laterality: LEFT Number of different views (projections): 4 COMPARISON: 05/15/14 RESULT: Mild medial compartment narrowing. Patellofemoral joint is mildly narrowed laterally. Small osteophytes about the medial compartment knee joint. Enthesophyte on patella at insertion quadriceps tendon. Tiny osteophytes at the patellofemoral joint. No joint effusion. No fracture. IMPRESSION: MILD DEGENERATIVE JOINT DISEASE. 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 [place] [address] OFFICE VISIT Date of Service: 09/23/17 MR#: [id number] Acct: [id number] Name: LACY ALVARADO Rep #: [id number] : 1950 Provider: Winston Koch MD Age/Sex: 66/F [place] [facility] [place]: Signed [facility] Chief Complaint: Initial visit. Details: LACY LAVARADO, is a 66 F who presents to the office today for an initial visit. She does have cardiac risk factors with hypertension diabetes mellitus obstructive sleep apnea hyperlipidemia and obesity. She says that she is presenting for an initial evaluation. She currently does not have any chest pain or shortness breath or paroxysmal nocturnal dyspnea pedal edema she has had no neck arm or jaw discomfort suggest angina no dizziness or diaphoresis no near syncope or syncope. She has been compliant with all her medications. She did have a stress test approximately 6 years ago. Her blood pressure has been under good control and her physical exam today demonstrates clear lung wallace regular rate and rhythm and no pedal edema. Her EKG was reviewed from June of this year and it demonstrates normal sinus rhythm with no acute changes. Intake Vital Signs09/23/17 Height 5 ft 2 in 09/23/17 Weight: 180 lb 09/23/17 Body Mass Index (BMI) 32.9 09/23/17 Blood Pressure 122/80 09/23/17 Respiratory Rate 18 09/23/17 Pulse Rate 88 Intake Visit Reasons: PCP ref'd for CHF Allergies prednisone Adverse Reaction (Verified 07/28/17 18:11) Nausea Medications Metformin HCl [Glucophage] 500 mg PO BIDCM 02/22/13 [History Confirmed 09/23/17] Gabapentin 600 mg PO BID 02/23/13 [History Confirmed 09/23/17] Glimepiride [Amaryl] 2 mg PO DAILY 02/23/13 [History Confirmed 09/23/17] Hydroxychloroquine [Plaquenil] 200 mg PO BIDCM 02/23/13 [History Confirmed 09/23/17] Meloxicam [Mobic] 7.5 mg PO DAILY 02/23/13 [History Confirmed 09/23/17] Nitroglycerin [Nitrostat] 0.4 mg SUBLINGUAL Q5M PRN 02/23/13 [History Confirmed 09/23/17] Omeprazole [Prilosec] 20 mg PO DAILY 02/23/13 [History Confirmed 09/23/17] Verapamil [Calan] 120 mg PO QHS 02/23/13 [History Confirmed 09/23/17] Dicyclomine HCl [Bentyl] 20 mg PO TIDAC PRN #16 cap 12/25/15 [Rx Confirmed 09/23/17] Divalproex Sodium [Depakote ER] 1,000 mg PO QHS 07/12/16 [History Confirmed 09/23/17] Atorvastatin Calcium [Lipitor] 40 mg PO QHS 08/24/16 [History Confirmed 09/23/17] Aspirin [Aspirin, Baby] 81 mg PO DAILY@0800 02/26/17 [History Confirmed 09/23/17] Cholecalciferol (Vitamin D3) [Vitamin D3] 2,000 unit PO DAILY 02/26/17 [History Confirmed 09/23/17] Losartan Potassium [Cozaar] 25 mg PO DAILY 02/26/17 [History Confirmed 09/23/17] cyclobenzaprine 10 mg tablet 10 mg PO TID PRN #30 tab 05/18/17 [Rx Confirmed 09/23/17] fluticasone 50 mcg/actuation nasal spray,suspension 1 spray INTRANASAL BID #16 g 06/23/17 [Rx Confirmed 09/23/17] triamcinolone acetonide 0.025 % topical ointment 1 applic TOPICAL QDAY #80 g 09/10/17 [Rx Confirmed 09/23/17] ketotifen 0.025 % (0.035 %) eye drops 1 drp OPHTHALMIC BID PRN #5 ml 09/14/17 [Rx Confirmed 09/23/17] PFSH Medical History Arthritis (Acute) Diabetes type 2, controlled (Acute) Heart disease (Acute) High cholesterol (Acute) Hives (Acute) Rheumatoid arthritis (Acute) Seasonal allergies (Acute) Seizures (Acute) HTN (hypertension) (Chronic) Surgical History H/O: hysterectomy (Acute) History of carpal tunnel surgery (Acute) History of section (Acute) Family History Grandmother Alcoholism Cancer Arthritis Mother Alcoholism Diabetes blood clots Hypertension Grandfather Heart disease Sister Thyroid disorder Other Breast cancer Cervical cancer Colon cancer Social History Smoking Status: Never smoker second hand exposure: Yes alcohol intake: never substance use type: does not use what type of physical activity do you participate in: none ROS Const Const: Positive for fatigue (Admits to having to go back to work to take care of 9 y/o grandson); negative for weakness, difficulty sleeping, frequent falls, headache(s) or excessive sweating Eyes Eyes: Negative for loss of peripheral vision, transient loss of vision, blurry vision or double vision ENT ENT: Negative for headache(s), dizziness, Nosebleed/epistaxis or balance problems Cardio Chest Pain: Yes (occasionally) Character: tightness Onset: at rest, exercise Location: left chest Duration: brief Edema: Right (Right ankle edema secondary to arthritis) Muscle aches with walking: None Resp Respiratory: Positive for SOB with activity; negative for SOB at rest, SOB orthopnea\SOB lying down or paroxysmal nocturnal dyspnea Additional Details: Scheduled for cpap titration GI GI: Negative nausea or heartburn : Negative for hematuria Musc Musc: Negative for muscle aches/ myalgia, muscle weakness, joint pain or balance problems Skin Skin: Negative non-healing lesions, unusual bruising or rash Neuro Neuro: Negative for weakness, frequent falls, blurry vision, headache(s), dizziness, lightheadedness, orthostatic symptoms or double vision True Hematologic/Lymphatic: Negative for easy bruising Endo Endo: Positive for fatigue (Admits to having to go back to work to take care of 9 y/o grandson); negative for excessive sweating or increased thirst/drinking Psych Psych: Negative for anxiety or depression Allergy Allergy/Immunology: Negative for hives, Negative for rash Cardiology Exam Const Appearance: cooperative, healthy appearing, well developed, well groomed and no acute distress Nutritional Appearance: well nourished and average body habitus Orientation: alert, awake and oriented x3 Head Head: normal to inspection, normocephalic and atraumatic Ears: hearing grossly normal bilaterally and external ears normal Nose: external nose normal, nasal mucous membranes and turbinates normal, nares normal, septum normal, no nasal discharge Face and Sinus: face symmetric Mouth: oral mucosae normal, tongue normal, oropharynx normal and moist mucous membranes Teeth and gingiva: dentition normal Throat: posterior oropharynx normal, tonsils normal and uvula midline Eyes General: appearance normal, both eyes and all related structures Eyelids: eyelids normal Conjunctivae: conjunctivae normal Pupils: PERRL, normal by confrontation and accommodation normal EOM: EOM intact bilaterally Neck Neck: normal visual inspection, trachea midline and no JVD JVD: +5 Carotids: normal carotid upstroke and bounding pulses Chest Chest inspection: normal inspection of the chest, symmetric chest movement and normal respiratory effort Auscultation: Bilateral: Clear to Auscultation Cardio Palpation: normal PMI Rate: regular rate Rhythm: regular rhythm Heart sounds: S1 normal, S2 normal and normal, physiologic split S2; negative rub, gallop or murmur GI GI: normal to inspection, soft, no hepatosplenomegaly and bowel sounds present Neuro General: alert, awake, oriented x3, no focal sensory deficit, gait normal and moves all extremities Skin Skin: no rashes or lesions noted Extremities Pulses: Normal: Right Femoral Pulse, Left Femoral Pulse, Right Dorsalis Pedis Pulse, Left Dorsalis Pedis Pulse, Right Posterior Tibial Pulse, Left Posterior Tibial Pulse, Right Radial Pulse, Left Radial Pulse Lower Extremity Edema: None: Bilateral Musculoskel Musculoskeletal: No joint tenderness Psych Psychological: normal affect Assessment AND Plan 1. Essential hypertension I10 Plan Her blood pressure appears to be under good control on the losartan and the verapamil my recommendation would to continue the same without making any changes. She has had some episodes of dizziness but it does not appear that these are significant and I would not reduce any of the doses of what she is on at this time. 2. Dyspnea on exertion R06.09 Plan She does have some mild dyspnea on exertion and my recommendation at this time would be to obtain an echocardiogram as well as a stress test. Depending on the results of the findings further recommendations will be made. As you know is a diabetic it could mask coronary disease and therefore the need to pursue this further. Orders Orders: 3. Pure hypercholesterolemia E78.00; E78.0 Plan She does have a history of hyperlipidemia on high intensity statin. I think based on her risk factor profile this should be continued and further recommendations be made based on the results. Thank you for allowing me to participate in the care of your patient. 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) Coding Level of Care Code Off vis,new,level 4 Diagnoses Essential hypertension I10 Hypertension type: essential hypertension Dyspnea on exertion R06.09 Pure hypercholesterolemia E78.00; E78.0 Hyperlipidemia type: pure hypercholesterolemia Coding Level of Care Code Off vis,new,level 4 Diagnoses Essential hypertension I10 Hypertension type: essential hypertension Dyspnea on exertion R06.09 Pure hypercholesterolemia E78.00; E78.0 Hyperlipidemia type: pure hypercholesterolemia 09/23/17 1029 <Electronically signed by Winston Koch MD> Date Winston Espinoza Signature: Date (if applicable) CC: Mayda Garcia MD INTERNAL MEDICINE Observed: 09/15/2017 Status: F Source: [place] OFFICE VISIT 8:14 AM [facility] [address] [place] [address] [place] [address] OFFICE VISIT Date of Service: 09/14/17 MR#: [id number] Acct: [id number] Name: LACY ALVARADO Rep #: [id number] : 1950 Provider: Mayda Garcia MD Age/Sex: 66/F Location: [facility] Status: Signed Intake Vital Signs09/14/17 Height 5 ft 2 in Intake Visit Reasons: poss pink eye Chief Complaint: eye irritation Is patient in pain?: No Allergies prednisone Adverse Reaction (Verified 07/28/17 18:11) Nausea Medications Metformin HCl [Glucophage] 500 mg PO BIDCM 02/22/13 [History Confirmed 07/28/17] Gabapentin 600 mg PO BID 02/23/13 [History Confirmed 07/28/17] Glimepiride [Amaryl] 2 mg PO DAILY 02/23/13 [History Confirmed 07/28/17] Hydroxychloroquine [Plaquenil] 200 mg PO BIDCM 02/23/13 [History Confirmed 07/28/17] Meloxicam [Mobic] 7.5 mg PO DAILY 02/23/13 [History Confirmed 07/28/17] Nitroglycerin [Nitrostat] 0.4 mg SUBLINGUAL Q5M PRN 02/23/13 [History Confirmed 07/28/17] Omeprazole [Prilosec] 20 mg PO DAILY 02/23/13 [History Confirmed 07/28/17] Verapamil [Calan] 120 mg PO QHS 02/23/13 [History Confirmed 07/28/17] Dicyclomine HCl [Bentyl] 20 mg PO TIDAC PRN #16 cap 12/25/15 [Rx Confirmed 07/28/17] Divalproex Sodium [Depakote ER] 1,000 mg PO QHS 07/12/16 [History Confirmed 07/28/17] Atorvastatin Calcium [Lipitor] 40 mg PO QHS 08/24/16 [History Confirmed 07/28/17] Aspirin [Aspirin, Baby] 81 mg PO DAILY@0800 02/26/17 [History Confirmed 07/28/17] Cholecalciferol (Vitamin D3) [Vitamin D3] 2,000 unit PO DAILY 02/26/17 [History Confirmed 07/28/17] Losartan Potassium [Cozaar] 25 mg PO DAILY 02/26/17 [History Confirmed 07/28/17] cyclobenzaprine 10 mg tablet 10 mg PO TID PRN #30 tab 05/18/17 [Rx Confirmed 07/28/17] fluticasone 50 mcg/actuation nasal spray,suspension 1 spray INTRANASAL BID #16 g 06/23/17 [Rx Confirmed 07/28/17] triamcinolone acetonide 0.025 % topical ointment 1 applic TOPICAL QDAY #80 g 09/10/17 [Rx] ketotifen 0.025 % (0.035 %) eye drops 1 drp OPHTHALMIC BID PRN #5 ml 09/14/17 [Rx Confirmed 09/14/17] PFSH Medical History Arthritis (Acute) Diabetes type 2, controlled (Acute) Heart disease (Acute) High cholesterol (Acute) Hives (Acute) Rheumatoid arthritis (Acute) Seasonal allergies (Acute) Seizures (Acute) HTN (hypertension) (Chronic) Surgical History H/O: hysterectomy (Acute) History of carpal tunnel surgery (Acute) History of section (Acute) Family History Grandmother Alcoholism Cancer Arthritis Mother Alcoholism Diabetes blood clots Hypertension Grandfather Heart disease Sister Thyroid disorder Other Breast cancer Cervical cancer Colon cancer Social History Smoking Status: Never smoker second hand exposure: Yes alcohol intake: never substance use type: does not use what type of physical activity do you participate in: none HPI HPI Chief Complaint: eye irritation Details: LACY ALVARADO, is a 66yo F who presents to the office today due to itchy eyes ongoing for the last three days. Associated with runny nose and throat irritation. She feels well otherwise and denies chill, fever, nausea or vomiting. ROS Const Constitutional: No weight change, body ache, chills, fatigue, sleep problems, fever(s), change in appetite, snoring, weakness, frequent falls, headache(s) or excessive sweating Eyes Eyes: Positive for discharge, dry eyes and other (red eyes, and itch, for 3 days); no change in vision, eye pain, light sensitivity or blurry vision ENT ENT: No headache(s), abnormal hearing, ear pain, tinnitus, nasal congestion, sore throat or neck pain Resp Respiratory: No snoring, cough, shortness of breath or wheezing Cardio Cardiology: No excessive sweating, chest pain at rest, chest pain with exertion, shortness of breath, dyspnea on exertion, palpitations, orthopnea or lightheadedness Gastro GI: No abdominal pain, change in bowel habits, constipation, diarrhea, vomiting, nausea/dyspepsia or cramping Genitourinary-Female: No burning urination, painful urination, urinary incontinence, urinary frequency, abnormal vaginal bleeding, pelvic pain or other Musc Musculoskeletal: No neck pain, abnormal walking, joint pain, back pain, limited range of motion, numbness or tingling Skin Skin: Positive for itching; no redness, dry skin, lesions, wounds or rash Neuro Neurology: No weakness, frequent falls, headache(s), abnormal hearing, abnormal walking, numbness, tingling, abnormal speech, dizziness or memory loss Psych Psychiatric: No change in appetite, No memory loss, No anxiety, No depression, No Thoughts of harming yourself/Others Endo Endocrine: No fatigue, excessive sweating, cold intolerance, increased thirst/drinking, heat intolerance, flushing or increased hunger Aller/Imm Allergy/Immunologic: Positive for itchy eyes and seasonal allergy symptoms; no wheezing or hives True/Lymp Hematologic/Lymphatic: No easy bleeding, easy bruising or enlarged lymph nodes Exam Const General: cooperative, no acute distress Orientation: alert, awake, oriented x3 HENMT Head: atraumatic, normocephalic Ears: hearing grossly normal bilaterally Neck Neck: normal visual inspection, full ROM, no lymphadenopathy Neck mass: No Thyroid: thyroid normal Resp Effort AND Inspection: normal respiratory effort, able to speak in complete sentences Neuro General: alert, awake, oriented x3, moves all extremities, CN's II-XI intact bilaterally Extrem General: no clubbing, cyanosis or edema Psych Appearance: grossly normal Mood: congruent mood Affect: normal affect Assessment AND Plan 1. Allergic conjunctivitis and rhinitis H10.10; J30.9 Plan Ketotifen eye drops. Loratadine daily. Avoid scratching eyes and good hand hygiene discussed. Advised to call the office with worsening symptoms, questions or concerns. This note was generated with AssertID dictation software. It may contain incorrect words, spelling, and punctuation that were not noted in checking the note before signing. Plan Detail Other Medications New: ketotifen 0.025%(0.035%) administer at lea1 drp ophthalmic (eye) BID PRN allergy sympt st 8 hours apart oms Coding Level of Care Code Off vis,est,level 3 Diagnoses Allergic conjunctivitis and rhinitis H10.10; J30.9 09/15/17 0814 <Electronically signed by Mayda Gracia MD> Date Mayda Garcia MD Cosigner Signature: Date (if applicable) CC: INTERNAL MEDICINE Observed: 08/18/2017 Status: F Source: [place] OFFICE VISIT 2:56 PM [facility] REPOSITORY [facility] [address] [place] [place] [address] OFFICE VISIT Date of Service: 08/17/17 MR#: [id number] Acct: [id number] Name: LACY ALVARADO Rep #: [id number] : 1950 Provider: Mayda Garcia MD Age/Sex: 66/F Location: [facility] Status: Signed Intake Vital Signs08/17/17 Height 5 ft 2 in Intake Visit Reasons: 3 M FU Chief Complaint: follow-up visit Is patient in pain?: No Allergies prednisone Adverse Reaction (Verified 07/28/17 18:11) Nausea Medications Metformin HCl [Glucophage] 500 mg PO BIDCM 02/22/13 [History Confirmed 07/28/17] Gabapentin 600 mg PO BID 02/23/13 [History Confirmed 07/28/17] Glimepiride [Amaryl] 2 mg PO DAILY 02/23/13 [History Confirmed 07/28/17] Hydroxychloroquine [Plaquenil] 200 mg PO BIDCM 02/23/13 [History Confirmed 07/28/17] Meloxicam [Mobic] 7.5 mg PO DAILY 02/23/13 [History Confirmed 07/28/17] Nitroglycerin [Nitrostat] 0.4 mg SUBLINGUAL Q5M PRN 02/23/13 [History Confirmed 07/28/17] Omeprazole [Prilosec] 20 mg PO DAILY 02/23/13 [History Confirmed 07/28/17] Verapamil [Calan] 120 mg PO QHS 02/23/13 [History Confirmed 07/28/17] Dicyclomine HCl [Bentyl] 20 mg PO TIDAC PRN #16 cap 12/25/15 [Rx Confirmed 07/28/17] Divalproex Sodium [Depakote ER] 1,000 mg PO QHS 07/12/16 [History Confirmed 07/28/17] Atorvastatin Calcium [Lipitor] 40 mg PO QHS 08/24/16 [History Confirmed 07/28/17] Aspirin [Aspirin, Baby] 81 mg PO DAILY@0800 02/26/17 [History Confirmed 07/28/17] Cholecalciferol (Vitamin D3) [Vitamin D3] 2,000 unit PO DAILY 02/26/17 [History Confirmed 07/28/17] Losartan Potassium [Cozaar] 25 mg PO DAILY 02/26/17 [History Confirmed 07/28/17] cyclobenzaprine 10 mg tablet 10 mg PO TID PRN #30 tab 05/18/17 [Rx Confirmed 07/28/17] triamcinolone acetonide 0.025 % topical ointment 1 applic TOPICAL QDAY #80 g 05/18/17 [Rx Confirmed 07/28/17] fluticasone 50 mcg/actuation nasal spray,suspension 1 spray INTRANASAL BID #16 g 06/23/17 [Rx Confirmed 07/28/17] PFS Medical History Arthritis (Acute) Diabetes type 2, controlled (Acute) Heart disease (Acute) High cholesterol (Acute) Hives (Acute) Rheumatoid arthritis (Acute) Seasonal allergies (Acute) Seizures (Acute) HTN (hypertension) (Chronic) Surgical History H/O: hysterectomy (Acute) History of carpal tunnel surgery (Acute) History of section (Acute) Family History Grandmother Alcoholism Cancer Arthritis Mother Alcoholism Diabetes blood clots Hypertension Grandfather Heart disease Sister Thyroid disorder Other Breast cancer Cervical cancer Colon cancer Social History Smoking Status: Never smoker second hand exposure: Yes alcohol intake: never substance use type: does not use what type of physical activity do you participate in: none HPI HPI Chief Complaint: follow-up visit Details: LACY ALVARADO, is a 66yo F who presents to the office today for follow-up of chronic medical conditions. She has no acute complaints at this time. She was seen here about 2 weeks ago for symptoms suggestive of UTI. She was also started on antibiotics which is now completed. Symptoms are said to have resolved. She has no concerns at this time. ROS Const Constitutional: No weight change, body ache, chills, fatigue, sleep problems, fever(s), change in appetite, snoring, weakness, frequent falls, headache(s) or excessive sweating Eyes Eyes: No change in vision, eye pain, light sensitivity or blurry vision ENT ENT: No headache(s), abnormal hearing, ear pain, tinnitus, nasal congestion, sore throat or neck pain Resp Respiratory: No snoring, cough, shortness of breath or wheezing Cardio Cardiology: No excessive sweating, chest pain at rest, chest pain with exertion, shortness of breath, dyspnea on exertion, palpitations, orthopnea or lightheadedness Gastro GI: No abdominal pain, change in bowel habits, constipation, diarrhea, vomiting, nausea/dyspepsia or cramping Musc Musculoskeletal: No neck pain, abnormal walking, joint pain, back pain, limited range of motion, numbness or tingling Skin Skin: No redness, dry skin, itching, lesions, wounds or rash Neuro Neurology: No weakness, frequent falls, headache(s), abnormal hearing, abnormal walking, numbness, tingling, abnormal speech, dizziness or memory loss Psych Psychiatric: No change in appetite, No memory loss, No anxiety, No depression, No Thoughts of harming yourself/Others Endo Endocrine: No fatigue, excessive sweating, cold intolerance, increased thirst/drinking, heat intolerance, flushing or increased hunger Aller/Imm Allergy/Immunologic: No wheezing, itchy eyes, hives or seasonal allergy symptoms True/Lymp Hematologic/Lymphatic: No easy bleeding, easy bruising or enlarged lymph nodes Exam Const General: cooperative, no acute distress Orientation: alert, awake, oriented x3 HENMT Head: atraumatic, normocephalic Ears: hearing grossly normal bilaterally Neck Neck: normal visual inspection, full ROM, no lymphadenopathy Neck mass: No Thyroid: thyroid normal Resp Effort AND Inspection: normal respiratory effort, able to speak in complete sentences Auscultation: Bilateral: Clear to Auscultation Cardio Rate: regular rate Rhythm: regular rhythm Heart Sounds: S1 normal, S2 normal GI Inspection: obesity Palpation: soft, no hepatosplenomegaly Neuro General: alert, awake, oriented x3, moves all extremities, CN's II-XI intact bilaterally Extrem General: no clubbing, cyanosis or edema Psych Appearance: grossly normal Mood: congruent mood Affect: normal affect Assessment AND Plan 1. Hypertension I10 Plan Better controlled today. Continue current medication. Continue lifestyle modifications. Follow-up at next visit. 2. Diabetes mellitus E11.9 type 2 Plan Last A1c was 6.7. No albuminuria also noted. Continue current medications. Continue lifestyle modification. Will follow. Orders Orders: 3. Vitamin D deficiency E55.9 Plan Patient reports a history of vitamin D deficiency dating back several years. Had previously been on 50,000 weekly however has inconsistently taken her maintenance dose. Vitamin D level ordered. Follow-up with results. Orders Orders: 4. Hyperlipidemia E78.5 Plan Lipid profile ordered. Continue atorvastatin 40 mg daily. 5. Chronic diastolic CHF (congestive heart failure) I50.32 Plan Stable. No complaints of shortness of breath, leg swelling, palpitations Amaya fatigability at this time. Scheduled to follow-up with the heart group. Will follow. This note was generated with AssertID dictation software. It may contain incorrect words, spelling, and punctuation that were not noted in checking the note before signing. Coding Level of Care Code Off vis,est,level 4 Diagnoses Hypertension I10 Diabetes mellitus E11.9 Vitamin D deficiency E55.9 Hyperlipidemia E78.5 Chronic diastolic CHF (congestive heart failure) I50.32 08/18/17 1456 <Electronically signed by Mayda Garcia MD> Date Mayda Garcia MD Cosigner Signature: Date (if applicable) CC: PELVIS 1 OR 2 VIEWS Observed: 08/13/2017 Status: F Source: [place] 8:40 AM [facility] REPOSITORY [facility] Imaging Services [address] [place] [id number] Pelvis 1 or 2 Views MR#: [id number] Acct: [id number] Name: LACY ALVARADO Rep #: [id number] : 1950 F 66 From: Tor Artis MD PCP: Mayda Garcia MD Status: REG CLI Study: Pelvis 1 or 2 Views Date of Exam: 08/13/17 Exam# [id number] Ordering Dr: Yee Rowland MD STUDY: X-RAY - PELVIS REASON FOR EXAM: Female, 66 years old. Polyarthropathy. TECHNIQUE: One view of the pelvis was obtained. COMPARISON: None. FINDINGS: There is a non-specific bowel gas pattern. There are multiple calcified phleboliths. There is narrowing with cortical sclerosis and osteophyte formation of the sacroiliac joint consistent with degenerative osteoarthritic changes. Normal visualized bilateral superior and inferior pubic rami. Normal pubic symphysis. Normal ischial tuberosities. Normal visualized right femoral head. Normal right acetabulum. There is moderate articular joint space narrowing of the right hip. Normal visualized left femoral head. Normal left acetabulum. There is moderate articular joint space narrowing of the left hip. RAD/Pelvis 1 or 2 Views IMPRESSION: Osteoarthritis of both hip joints. Electronically Signed: Tor Artis MD at 10:35 EDT Tel [phone], Service support , CC: Mayda Garcia MD; Yee Rowland MD Yarn Texturing Machine Operator: Signed THYROID STIM HORMONE Collected: 08/13/2017 Status: F Source: [place] (TSH) 8:29 AM [facility] REPOSITORY TYPE CODE TESTS RESULT OUT OF RANGE REFERENCE UNITS LAB L501.9520 0.358-3.74 uIU/mL Normal TSH 2.19 Performed By: #### L501.9520, L506.0400 #### [facility] [address] [place], [place], [address] T4 FREE DIRECT Collected: 08/13/2017 Status: F Source: [place] 8:29 AM [facility] REPOSITORY TYPE CODE TESTS RESULT OUT OF RANGE REFERENCE UNITS LAB L506.0400 0.76-1.46 ng/dL Normal T4 FREE 0.92 DIRECT Performed By: #### L501.9520, L506.0400 #### [facility] [address] [place], [address] CBC W/DIFF, AUTOMATED Collected: 08/13/2017 Status: F Source: [place] 8:26 AM [facility] REPOSITORY TYPE CODE TESTS RESULT OUT OF RANGE REFERENCE UNITS LAB L100.1000 4.4-11.0 K/mm3 Low WBC 3.7 LAB L100.1200 4.2-5.4 M/mm3 Low RBC 3.84 LAB L100.1300 12.0-15.0 g/dl Low HGB 11.9 LAB L100.1400 37-47 % Low HCT 36.7 LAB L100.1500 81-99 fL Normal MCV 95.6 LAB L100.1600 27.0-32.0 pg Normal MCH 31.0 LAB L100.1700 32-36 g/gl Normal MCHC 32.4 LAB L100.1810 11.6-14.6 % Normal RDW CV 13.2 LAB L100.1820 35.1-43.9 fl High RDW SD 44.9 LAB L100.1900 150-450 K/mm3 Normal PLT 205 LAB L100.2000 6.2-12.0 fl Normal MPV 11.2 LAB L100.2100 47-70 % Normal NEUT% 49.3 LAB L100.2200 19-41 % Normal LY% 38.1 LAB L100.2300 0-10 % Normal MONO% 9.3 LAB L100.2400 0-5 % Normal EO% 3.0 LAB L100.2500 0-1 % Normal BASO% 0.3 LAB L100.2550 0.0-0.9 % Normal IM GRAN % 0.000 Result Comment: IG% - Immature Granulocytes (promyelocytes, myelocytes and metamyelocytes) > 1% indicates that a LEFT SHIFT is Present. LAB L100.2620 2.0-7.7 X10 3/uL Low Absolute Neut 1.8 LAB L100.2720 0.83-4.51 X10 3/ul Normal Absolute Lymph 1.40 Performed By: #### L100.0100, L101.9900 #### [facility] [address] [place], [place], [id number] ERYTHROCYTE SED RATE Collected: 08/13/2017 Status: F Source: [place] 8:26 AM [facility] REPOSITORY TYPE CODE TESTS RESULT OUT OF RANGE REFERENCE UNITS LAB L102.0000 0-30 mm/hr Normal SED RATE 16 Performed By: #### L100.0100, L101.9900 #### [facility] [address] [place], [place], [id number] COMPREHENSIVE METABOLIC Collected: 08/13/2017 Status: F Source: [facility] 8:26 AM [facility] REPOSITORY TYPE CODE TESTS RESULT OUT OF RANGE REFERENCE UNITS LAB L501.0100 74-106 mg/dL High GLU 112 Result Comment: Fasting Glucose result from 100 to 125 mg/dL suggests IMPAIRED HOMEOSTASIS per A.D.A. criteria. Please note revised GLUCOSE reference range effective 2017. LAB L501.1000 7-18 mg/dL Normal BUN 17 LAB L501.1100 0.55-1.02 mg/dL Normal CREAT,SERUM 0.84 Result Comment: The validity of the calculated GFR AND GFRAA in patients over 70 years has not been determined. Clinical correlation is essential. LAB L501.1110 >60 mL/min Normal EST GFR 72 Result Comment: Non- GFR Calc LAB L501.1115 >60 mL/min Normal EST GFR - AA 87 Result Comment: GFR Calc LAB L501.1300 10-20 RATIO High BUN/CRE 20.2 LAB L501.1500 6.4-8.2 g/dL T Normal PROT 7.3 LAB L501.1800 3.2-5.0 g/dL Normal ALB 3.4 LAB L501.1950 2.2-4.2 g/dL Normal GLOB 3.9 LAB L501.2000 0.9-2.4 RATIO Normal A/G 0.9 LAB L501.2200 8.5-10.1 mg/dL CA Normal 8.7 LAB L501.4100 15-37 U/L Normal AST 16 LAB L501.4305 45-117 U/L Normal ALK P 110 LAB L501.4405 13-56 U/L Normal ALT 21 Result Comment: Please note revised ALT reference range effective 2017. LAB L501.4600 0.20-1.00 mg/dL Normal T BILI 0.30 LAB L501.5300 136-145 mmol/L Normal NA 143 LAB L501.5600 3.5-5.1 mmol/L Normal K 4.1 LAB L501.5900 98-107 mmol/L Normal CL 107 LAB L501.6100 21.0-32.0 mmol/L Normal CO2 27.0 LAB L501.6200 5-15 Normal GAP 9 Performed By: #### L500.4050, L501.6710, L505.7010 #### [facility] [address] [place], [address] CRP Collected: 08/13/2017 Status: F Source: [place] 8:26 AM [facility] REPOSITORY TYPE CODE TESTS RESULT OUT OF RANGE REFERENCE UNITS LAB L501.6710 0.0-3.0 mg/L High 6.77 C-REACTIVE PROT Result Comment: C-Reactive Protein (CRP) provides useful information for the diagnosis, therapy and monitoring of inflammatory processes and associated diseases. For the evaluation of Relative Risk for Cardiovascular Disease, a High Sensitivity CRP (HSCRP) should be ordered. Performed By: #### L500.4050, L501.6710, L505.7010 #### [facility] [address] [place], [address] RHEUMATOID FACTOR Collected: 08/13/2017 Status: F Source: [place] 8:26 AM [facility] REPOSITORY TYPE CODE TESTS RESULT OUT OF RANGE REFERENCE UNITS LAB L505.7010 <15 IU/mL Normal RHEUMATOID FAC < 10.0 Performed By: #### L500.4050, L501.6710, L505.7010 #### [facility] [address] [place], [address] ANTINUCLEAR ANTIBODIES Collected: 08/13/2017 Status: F Source: [place] DIRECT 8:26 AM [facility] REPOSITORY TYPE CODE TESTS RESULT OUT OF RANGE REFERENCE UNITS LAB L3100.5475 Negative Normal Negative RUBI-DIRECT Result Comment: Performed at: [facility] [id number] Head Of Physics: Lobo Das PhD, Phone: [phone] Performed By: #### L3100.5475 #### [facility] (refer to report for specific site) refer to report for address and phone number HEPATITIS B SURFACE Collected: 08/13/2017 Status: F Source: [place] AG 8:26 AM [facility] REPOSITORY TYPE CODE TESTS RESULT OUT OF RANGE REFERENCE UNITS LAB L3100.0400 Negative Normal HB Negative SURF AG Result Comment: Performed at: [facility] [employer] [id number] Head Of Physics: Lobo Das PhD, Phone: [phone] Performed at: [address] [place] [address], [place], [place] [id number] Head Of Physics: Victor Manuel Davis PhD, Phone: [phone] Performed at: - [facility] [address] [place], [place] [id number] Head Of Physics: Wilson López MD, Phone: [phone] Performed By: #### L3100.0390, L3100.0528, L3100.0625, L3410.1400, L4600.0100 #### [facility] (refer to report for specific site) refer to report for address and phone number HEP B SURFACE Collected: 08/13/2017 Status: F Source: [place] ANTIBODIES 8:26 AM [facility] REPOSITORY TYPE CODE TESTS RESULT OUT OF RANGE REFERENCE UNITS LAB L3100.0528 . Normal Hep B Non Reactive [place] AB Result Comment: Non Reactive: Inconsistent with immunity, less than 10 mIU/mL Reactive: Consistent with immunity, greater than 9.9 mIU/mL Performed By: #### L3100.0390, L3100.0528, L3100.0625, L3410.1400, L4600.0100 #### [facility] (refer to report for specific site) refer to report for address and phone number HEPATITIS C ANTIBODIES Collected: 08/13/2017 Status: F Source: [place] 8:26 AM [facility] REPOSITORY TYPE CODE TESTS RESULT OUT OF RANGE REFERENCE UNITS LAB L3100.0650 0.0-0.9 s/co ratio Normal HEP C AB <0.1 Result Comment: Negative: < 0.8 Indeterminate: 0.8 - 0.9 Positive: > 0.9 The CDC recommends that a positive HCV antibody result be followed up with a HCV Nucleic Acid Amplification test (065034). Performed By: #### L3100.0390, L3100.0528, L3100.0625, L3410.1400, L4600.0100 #### [facility] (refer to report for specific site) refer to report for address and phone number HLA B27 Collected: 08/13/2017 Status: F Source: [place] 8:26 AM [facility] REPOSITORY TYPE CODE TESTS RESULT OUT OF RANGE REFERENCE UNITS LAB L3410.1500 . Normal HLA Negative B27 Result Comment: HLA-B*27 Negative B27 allele interpretation for all loci based on IMGT/HLA database version 3.27 This test was developed and its performance characteristics determined by [facility]. It has not been cleared or approved by the Food and Drug Administration. [facility] CLIA ID Number [id number] This test was performed using PCR (Polymerase Chain Reaction)/SSOP (Sequence Specific Oligonucleotide Probes) technique. SBT (Sequence Based Typing) and/or SSP (Sequence Specific Primers) may be used as supplemental methods when necessary. Please contact [facility] Customer Service at if you have any questions. Director of [facility] Dr Victor Manuel Davis, PhD Performed By: #### L3100.0390, L3100.0528, L3100.0625, L3410.1400, L4600.0100 #### [facility] (refer to report for specific site) refer to report for address and phone number CCP IGG ANTIBODIES Collected: 08/13/2017 Status: F Source: [place] 8:26 AM [facility] REPOSITORY TYPE CODE TESTS RESULT OUT OF RANGE REFERENCE UNITS LAB L4600.0100 0-19 units Normal ANTI-CCP [id number] Result Comment: Negative <20 Weak positive 20 - 39 Moderate positive 40 - 59 Strong positive >59 Performed By: #### L3100.0390, L3100.0528, L3100.0625, L3410.1400, L4600.0100 #### [facility] (refer to report for specific site) refer to report for address and phone number URINALYSIS, COMPLETE Collected: 07/29/2017 Status: F Source: [place] 3:43 PM [facility] REPOSITORY Order Comment: How was Urine Obtained? CLEAN CATCH TYPE CODE TESTS RESULT OUT OF RANGE REFERENCE UNITS LAB L400.3000 Yellow COLOR Normal Yellow LAB L400.3050 Clear Normal CLARITY Clear LAB L400.3200 Normal mg/dl Normal GLUCOSE, UR Normal LAB L400.3300 Negative mg/dL Normal BILIRUBIN URINE Negative LAB L400.3400 Negative mg/dl Normal KETONE UR Negative LAB L400.3465 1.002-1.030 Normal SP.GR. DIPSTX 1.015 LAB L400.3550 5.0 - 8.0 pH UR Normal 6.5 LAB L400.3600 Negative mg/dl PROT Normal DIPSTX Negative LAB L400.3700 Normal mg/dl High 1 UROBILI LAB L400.3750 Negative Normal NITRITE UR Negative LAB L400.3780 Negative /ul High 10 OCCULT BLOOD-UR LAB L400.3800 Negative /ul High LEUK 25 ESTERASE LAB L400.4050 0-5 /hpf WBC Normal 0-5 SEEN LAB L400.4100 0-5 /hpf 0 Normal RBC-UA SEEN LAB L400.4150 5-10 /hpf SQUAM 0 Normal EPI SEEN LAB L400.4300 None Seen /hpf 0 Normal BACTERIA SEEN LAB L400.4350 <or=2+ /hpf 1+ Normal MUCUS, URINE Performed By: #### L400.0001, M100.0650 #### [facility] [address] [place], [address] Observed: 07/29/2017 Status: F Source: [place] CULTURE, URINE 3:43 PM [facility] REPOSITORY Urine Culture Probable skin contaminants Below infection level. ORGANISM 1: Mixed Gram Positive Organisms Harwood Count 1000-10,000 MIX CULTURE Mixed contaminants. Submit a new specimen if indicated. Performed By: #### L400.0001, M100.0650 #### [facility] [address], [address] INTERNAL MEDICINE Observed: 07/29/2017 Status: F Source: [place] OFFICE VISIT 8:47 AM [facility] REPOSITORY [facility] [address] [place] [address] [place] [address] OFFICE VISIT Date of Service: 07/28/17 MR#: [id number] Acct: [id number] Name: JENNYLACY L Rep #: [id number] : 1950 Provider: Saul Nicole NP Age/Sex: 66/F Location: [facility] Status: Signed Intake Vital Signs07/28/17 Height 5 ft 2 in 07/28/17 Weight: 181 lb 07/28/17 Body Mass Index (BMI) 33.0 07/28/17 Blood Pressure 125/77 Intake Visit Reasons: Urinary tract infection Chief Complaint: Left side back pain Is patient in pain?: Yes (Left side of lower back) Pain scale (1-10): 7 Allergies prednisone Adverse Reaction (Verified 07/28/17 18:11) Nausea Medications Metformin HCl [Glucophage] 500 mg PO BIDCM 02/22/13 [History Confirmed 07/28/17] Gabapentin 600 mg PO BID 02/23/13 [History Confirmed 07/28/17] Glimepiride [Amaryl] 2 mg PO DAILY 02/23/13 [History Confirmed 07/28/17] Hydroxychloroquine [Plaquenil] 200 mg PO BIDCM 02/23/13 [History Confirmed 07/28/17] Meloxicam [Mobic] 7.5 mg PO DAILY 02/23/13 [History Confirmed 07/28/17] Nitroglycerin [Nitrostat] 0.4 mg SUBLINGUAL Q5M PRN 02/23/13 [History Confirmed 07/28/17] Omeprazole [Prilosec] 20 mg PO DAILY 02/23/13 [History Confirmed 07/28/17] Verapamil [Calan] 120 mg PO QHS 02/23/13 [History Confirmed 07/28/17] Dicyclomine HCl [Bentyl] 20 mg PO TIDAC PRN #16 cap 12/25/15 [Rx Confirmed 07/28/17] Divalproex Sodium [Depakote ER] 1,000 mg PO QHS 07/12/16 [History Confirmed 07/28/17] Atorvastatin Calcium [Lipitor] 40 mg PO QHS 08/24/16 [History Confirmed 07/28/17] Aspirin [Aspirin, Baby] 81 mg PO DAILY@0800 02/26/17 [History Confirmed 07/28/17] Cholecalciferol (Vitamin D3) [Vitamin D3] 2,000 unit PO DAILY 02/26/17 [History Confirmed 07/28/17] Losartan Potassium [Cozaar] 25 mg PO DAILY 02/26/17 [History Confirmed 07/28/17] cyclobenzaprine 10 mg tablet 10 mg PO TID PRN #30 tab 05/18/17 [Rx Confirmed 07/28/17] triamcinolone acetonide 0.025 % topical ointment 1 applic TOPICAL QDAY #80 g 05/18/17 [Rx Confirmed 07/28/17] fluticasone 50 mcg/actuation nasal spray,suspension 1 spray INTRANASAL BID #16 g 06/23/17 [Rx Confirmed 07/28/17] cephalexin 500 mg capsule 500 mg PO Q12H 7 Days #14 cap 07/28/17 [Rx Confirmed 07/28/17] PFSH Medical History Arthritis (Acute) Diabetes type 2, controlled (Acute) Heart disease (Acute) High cholesterol (Acute) Hives (Acute) Rheumatoid arthritis (Acute) Seasonal allergies (Acute) Seizures (Acute) HTN (hypertension) (Chronic) Surgical History H/O: hysterectomy (Acute) History of carpal tunnel surgery (Acute) History of section (Acute) Family History Grandmother Alcoholism Cancer Arthritis Mother Alcoholism Diabetes blood clots Hypertension Grandfather Heart disease Sister Thyroid disorder Other Breast cancer Cervical cancer Colon cancer Social History Smoking Status: Never smoker second hand exposure: Yes alcohol intake: never substance use type: does not use what type of physical activity do you participate in: none HPI HPI Chief Complaint: Left side back pain Details: LACY ALVARADO, is a 66 F who presents to the office today for an acute complaint of possible UTI that intermittently radiates to her left side of her back and causes her discomfort. She is a past medical history as listed above. The patient states that her urinary frequency, urinary pressure, and urinary hesitancy has been going on for about a month now. She states that she gets pain that shoots up to her kidney and her left back. She states she has been trying to drink cranberry juice and increase her water intake, however this is not helping with her symptoms. She denies doing any other treatments for this. She does state that she has a history of UTIs in the past and that this feels similar. She denies any blood in the urine and she states the only recent antibiotics she has been on as Augmentin for upper respiratory symptoms a month ago. The patient otherwise denies any fever, chills, nausea, vomiting, shortness of breath, chest pain or pressure, palpitations, orthopnea, lower extremity edema, syncope or presyncopal episodes. ROS Const Constitutional: No fever(s), chills, weakness, change in appetite, sleep problems, fatigue, malaise or frequent falls Eyes Eyes: No blurry vision, change in vision, double vision or discharge ENT ENT: No abnormal hearing, ear pain, ear pressure or dizziness/vertigo Resp Respiratory: No cough, wheezing or shortness of breath Cardio Cardiology: No chest pain at rest, chest pain with exertion, shortness of breath, dyspnea on exertion, lightheadedness, irregular heart rhythm, fast heart rate, palpitations, orthopnea or generalized swelling Gastro GI: No abdominal pain, change in bowel habits, constipation, diarrhea, vomiting or nausea/dyspepsia Genitourinary-Female: Positive for other (Back pain), urinary frequency, urinary urgency, Frequent nighttime urination/ nocturia and side pain Musc Musculoskeletal: No joint pain, back pain, limited range of motion, joint swelling, muscle weakness, tingling or numbness Skin Skin: No change in skin color, wounds, rash or itching Neuro Neurology: No weakness, frequent falls, abnormal hearing, tingling, numbness, unsteady gait/balance, dizziness, loss of vision or memory loss Psych Psychiatric: No change in appetite, No memory loss, No anxiety, No depression, No Thoughts of harming yourself/Others Endo Endocrine: No fatigue, increased thirst/drinking, increased urination, increased hunger or heat intolerance Aller/Imm Allergy/Immunologic: No wheezing, itchy eyes or seasonal allergy symptoms True/Lymp Hematologic/Lymphatic: No easy bleeding, easy bruising or enlarged lymph nodes Exam Const General: cooperative, comfortable, no acute distress Nutritional Appearance: average body habitus, well nourished Orientation: alert, oriented x3 Limitations: mental status not altered Resp Effort AND Inspection: normal respiratory effort, able to speak in complete sentences, normal respiratory pattern, symmetric chest movement, no audible wheezes, no cough Auscultation: Bilateral: Clear to Auscultation Cardio Palpation: normal PMI Rate: regular rate Heart Sounds: S1 normal, S2 normal, normal S1 and S2, no click, no gallops, no murmurs, no rubs General: No CVA tenderness, other (suprapubic pressure on exam) Musc Musculoskeletal: No muscle weakness Neuro General: alert, awake, oriented x3, CN's II-XI intact bilaterally Speech: speech normal Gait: normal gait Motor: muscle tone normal throughout Psych Appearance: grossly normal Mental Status: mental status grossly normal Affect: normal affect Attitude: cooperative Thought Process: normal Assessment AND Plan 1. Urinary tract infection N39.0 Plan Will treat patient empirically for an acute UTI as her symptoms are consistent with this. We will send out a UA and culture for evaluation. Did discuss proper hygiene that she should be taking the consideration and also discussed supportive methods such as increasing her fluid intake. Patient verbalized understanding. Discussed red flag warning signs of systemic infection that would require urgent medical attention. Will treat patient with Keflex 500 mg twice daily for 7 days. Patient follow-up as previously scheduled or sooner if needed if problems persist. Dragon disclaimer Orders Orders: Plan Detail Other Orders Orders: Other Medications New: Follow Up As previously scheduled or sooner if needed Coding Level of Care Code Off vis,est,level 3 Diagnoses Urinary tract infection N39.0 07/29/17 0847 <Electronically signed by Saul GRIMES> Date Saul GRIMES Cosigner Signature: Date (if applicable) CC: LIPID PANEL, BASIC Collected: 07/20/2017 Status: F Source: [place] 9:16 AM [facility] REPOSITORY TYPE CODE TESTS RESULT OUT OF REFERENCE UNITS RANGE LAB CHOL <200 mg/dL Cholesterol High 225 Result Comment: <200 mg/dL, Desirable 200-239 mg/dL, Borderline high >239 mg/dL, High LAB TRIGLY <150 mg/dL Triglyceride 97 Result Comment: <150 mg/dL, Normal 150-199 mg/dL, Borderline high 200-499 mg/dL, High >499 mg/dL, Very high LAB HDL >39 mg/dL HDL-Cholesterol 49 Result Comment: 40-59 mg/dL, Acceptable >59 mg/dL, High: Negative risk factor for coronary heart disease <40 mg/dL, Low: Positive risk factor for coronary heart disease LAB LDL <100 mg/dL LDL-Cholesterol High 157 Result Comment: <100 mg/dL, Optimal 100-129 mg/dL, Near optimal/above optimal 130-159 mg/dL, Borderline high 160-189 mg/dL, High >189 mg/dL, Very high Secondary prevention optimal LDL Cholesterol levels are recommended to be < 70 mg/dL LAB NONHDL <130 mg/dL Non HDL High Cholesterol 176 Result Comment: <130 mg/dL, Optimal 130-159 mg/dL, Near optimal/above optimal 160-189 mg/dL, Borderline high 190-219 mg/dL, High >219 mg/dL, Very high Secondary prevention optimal non HDL Cholesterol levels are recommended to be < 100 mg/dL LAB FT hrs Fasting Time 2 LAB VLDL <30 mg/dL VLDL Cholesterol 19 LAB TCHDL <5.10 TC:HDL Ratio 4.59 LAB LDLHDL <2.54 High LDL:HDL Ratio 3.20 Result Comment: Reference: 1. National Cholesterol Education Program ATP III Guideline At-A-Glance Quick Desk Reference: National Heart, Lung, and Blood [place]. National Institutes of Health. 2001: NIH Publication No. 01-3305. 2. An International Atherosclerosis Society position paper: global recommendations for the management of dyslipidemia: executive summary, Atherosclerosis. 2014: 232(2):410-413. Performed By: #### LIPB #### [facility] [address], [place] [address] CNCO Observed: 07/20/2017 Status: COMPLETED Source: [place] 9:15 AM [facility] REPOSITORY HNO ID: [id number] Author: Mammography Coordinator Service: (none) Author Type: Physician Type: Letter Filed: 07/21/2017 11:31 PM Note Text: July 20, 2017 PID: [id number] Lacy Alvarado [address] [place] [address] Dear Ms. Alvarado, We are pleased to inform you that the results of your recent breast imaging exam on 07/20/2017 are normal. Early detection of cancer is very important. We also understand recommendations regarding breast cancer screening are controversial. Please discuss with your primary care provider which strategy is best for you and whether a mammogram is right for you. Your imaging studies and report will be kept on file at [facility] as part of your permanent medical record and are available for your continuing care. Thank you for allowing us to help in meeting your health care needs. Sincerely, Dr. Jaime Interpreting Radiologist [facility] (Normal over 40) HAYLEE SCREENING Observed: 07/20/2017 Status: F Source: [place] 8:44 AM [facility] REPOSITORY * * *Final Report* * * DATE OF EXAM: Jul 20 2017 8:44AM WOW [id number] - HAYLEE SCREENING / PROCEDURE REASON: Encounter for screening mammogram for malignant neoplasm of breast * * * * Physician Interpretation * * * * RESULT: #[id number] - HAYLEE SCREENING BILATERAL DIGITAL SCREENING MAMMOGRAM WITH CAD: 07/20/2017 HISTORY: Encounter For Screening Mammogram For Malignant Neoplasm Of Breast\ Screening Mammogram - patient reports NO breast symptoms /priors available for comparison. RESULT: TECHNIQUE: The study was acquired using full field digital technology and interpreted from soft copy. Current study was also evaluated with a Computer Aided Detection (CAD). Comparison is made to exams dated: 03/11/2016 mammogram - [facility] and 12/19/2014 mammogram - [facility]. There are scattered fibroglandular elements in both breasts. No significant masses, calcifications, or other findings are seen in either breast. There has been no significant interval change. IMPRESSION: NEGATIVE There is no mammographic evidence of malignancy.A 1 year screening mammogram is recommended. Ronda Jaime M.D. cp/gudelia:07/20/2017 09:15:21 Bolt Labeler: Brielle HOPKINS(Tere)(Rg), [facility] letter sent: Normal over 40 Mammogram BI-RADS: 1 Negative Yarn Texturing Machine Operator: Gudelia Transcribe Date/Time: Jul 20 2017 8:46A Dictated by: RONDA JAIME MD This examination was interpreted and the report reviewed and electronically signed by: RONDA JAIME MD on Jul 20 2017 9:15AM EST [id number] ENDOCRINOLOGY VISIT Observed: 07/17/2017 Status: F Source: [place] REPORT 11:59 AM [facility] REPOSITORY [facility] [address] [place] [address] OFFICE VISIT Date of Service: 07/16/17 MR#: [id number] Acct: [id number] Name: LACY ALVARADO Rep #: [id number] : 1950 Provider: Zee Montiel NP Age/Sex: 66/F Location: [facility] Status: Signed HPI History of present illness Lacy Alvarado is a 66 year old female who presents for follow up of thyroid. Diagnosed with a nodule in 2011. Has been followed with annual ultrasound for this. Last seen 07/2015 Also has dx of diabetes with A1c 6.7 and takes oral agents. Reports hx of rheumatoid arthritis, vitamin D deficency, osteoporosis, CAD, epilepsy. At time of visit: -Pt denies symptoms of hypertensive emergency (CP,SOB,WALL, or blurred vision) and hypotension(dizziness or lightheadedness) -Pt denies symptoms of hypoglycemia ( sweaty, confusion, anxiety, tremor, hunger, palpitations) and hyperglycemia ( polydipsia, polyuria) -Pt denies potential medication adverse effect. Hypoglycemia Aware of hypoglycemia: When awake Able to self treat low BG: Yes Frequent low Blood sugar: No Has supply of glucagon: no Severity, modifying factors, context, and associated signs and symptoms are as follows: Thyroid pain: No Energy: fair Sleep: awakened refreshed Temp: No intolerance GI: Normal bowel Weight: Flucuates Eyes: No change in vision Memory: unchanged Diaphoresis: Not significant Skin: Dry Hair : Unchanged Neuro: No numbness, tingling or tremors SMBG Reports checking 4 times daily Type: type 2 Weight and fatigue symptoms: Denies snoring Cardiopulmonary symptoms: Denies chest pain at rest, dyspnea on exertion, lightheadedness or myalgias GI symptoms: Denies constipation, diarrhea, nausea/dyspepsia or vomiting Other symptoms: Denies blurry vision or change in vision Self monitoring: Yes Dietary compliance: Diabetes: good Diabetes education in past year: Yes Glucose testing: demonstrates correct use of meter, understands testing schedule Sick day education - understands ketone testing: Yes Physical activity: regular Exam Const General: no acute distress, well developed Nutritional Appearance: overweight [facility] Head: normal to inspection Ears: hearing grossly normal bilaterally Mouth: oral mucosae normal, moist mucous membranes Teeth and gingiva: dentition normal Eyes General: appearance normal, both eyes and all related structures Eyelids: eyelids normal Conjunctivae: conjunctivae normal Sclera: sclerae normal Pupils: PERRL Neck Neck: normal visual inspection Thyroid: solitary papule nodule Resp Effort AND Inspection: normal respiratory effort, able to speak in complete sentences Auscultation: Bilateral: Clear to Auscultation Cardio Rate: regular rate Rhythm: regular rhythm Heart Sounds: S1 normal, S2 normal GI Inspection: normal to inspection Auscultation: normal bowel sounds Palpation: soft Skin General: no rashes or lesions noted Wounds: no wounds Diabetic Foot Pulses: L dorsalis pedis pulse: normal, R dorsalis pedis pulse: normal Monofilament test: Left foot: normal, Right foot: normal Neuro General: gait normal Cognition: normal cognition Speech: speech normal Gait: normal gait Extrem General: normal to inspection, normal capillary refill Psych Appearance: well kempt Mood: congruent mood Affect: normal affect Speech and Movement: speech and movement normal Attitude: cooperative Thought Process: normal Thought Content: normal Intake Vital Signs07/16/17 Height 5 ft 2 in 07/16/17 Weight: 180 lb 8 oz 07/16/17 Body Mass Index (BMI) 33.0 07/16/17 Blood Pressure 113/77 07/16/17 Blood Pressure Location Lt popliteal 07/16/17 Blood Pressure Position Sitting Intake Visit Reasons: Thyroid dysfunction Tool Crib Attendant Required: No Accompanied by: Self Is patient in pain?: No Allergies prednisone Adverse Reaction (Verified 07/16/17 09:14) Nausea Medications Metformin HCl [Glucophage] 500 mg PO BIDCM 02/22/13 [History Confirmed 07/16/17] Gabapentin 600 mg PO BID 02/23/13 [History Confirmed 07/16/17] Glimepiride [Amaryl] 2 mg PO DAILY 02/23/13 [History Confirmed 07/16/17] Hydroxychloroquine [Plaquenil] 200 mg PO BIDCM 02/23/13 [History Confirmed 07/16/17] Meloxicam [Mobic] 7.5 mg PO DAILY 02/23/13 [History Confirmed 07/16/17] Nitroglycerin [Nitrostat] 0.4 mg SUBLINGUAL Q5M PRN 02/23/13 [History Confirmed 07/16/17] Omeprazole [Prilosec] 20 mg PO DAILY 02/23/13 [History Confirmed 07/16/17] Verapamil [Calan] 120 mg PO QHS 02/23/13 [History Confirmed 07/16/17] Dicyclomine HCl [Bentyl] 20 mg PO TIDAC PRN #16 cap 12/25/15 [Rx Confirmed 07/16/17] Divalproex Sodium [Depakote ER] 1,000 mg PO QHS 07/12/16 [History Confirmed 07/16/17] Atorvastatin Calcium [Lipitor] 40 mg PO QHS 08/24/16 [History Confirmed 07/16/17] Aspirin [Aspirin, Baby] 81 mg PO DAILY@0800 02/26/17 [History Confirmed 07/16/17] Cholecalciferol (Vitamin D3) [Vitamin D3] 2,000 unit PO DAILY 02/26/17 [History Confirmed 07/16/17] Losartan Potassium [Cozaar] 25 mg PO DAILY 02/26/17 [History Confirmed 07/16/17] cyclobenzaprine 10 mg tablet 10 mg PO TID PRN #30 tab 05/18/17 [Rx Confirmed 07/16/17] triamcinolone acetonide 0.025 % topical ointment 1 applic TOPICAL QDAY #80 g 05/18/17 [Rx Confirmed 07/16/17] fluticasone 50 mcg/actuation nasal spray,suspension 1 spray INTRANASAL BID #16 g 06/23/17 [Rx Confirmed 07/16/17] Is last menstrual period known: No Post menopausal: Yes Patient : No PFSH Medical History Arthritis (Acute) Diabetes type 2, controlled (Acute) Heart disease (Acute) High cholesterol (Acute) Hives (Acute) Rheumatoid arthritis (Acute) Seasonal allergies (Acute) Seizures (Acute) HTN (hypertension) (Chronic) Surgical History H/O: hysterectomy (Acute) History of carpal tunnel surgery (Acute) History of section (Acute) Family History Grandmother Alcoholism Cancer Arthritis Mother Alcoholism Diabetes blood clots Hypertension Grandfather Heart disease Sister Thyroid disorder Other Breast cancer Cervical cancer Colon cancer Social History Smoking Status: Never smoker second hand exposure: Yes alcohol intake: never substance use type: does not use what type of physical activity do you participate in: none ROS Const Constitutional: No anorexia, body ache, chills, fatigue, fever(s), frequent falls, decreased energy, malaise, night sweats, weakness, weight change, sleep problems, abnormal sleep pattern, change in appetite, other, headache(s), snoring or excessive sweating Eyes Eyes: No blurry vision, change in vision, double vision, discharge, dry eyes, bulging eyes, floaters, visual disturbances, eye pain, light sensitivity, spots in vision, tunnel vision or other ENT ENT: Positive for sinus pressure; no abnormal hearing, ear pain, ear discharge, ear pressure, hearing loss, tinnitus, dizziness/vertigo, balance problems, nosebleed/epistaxis, nasal congestion, nasal obstruction, nose pain, sinus pain, nasal discharge, post nasal drip, headache(s), facial pain, dental pain, dry mouth, bad breath, hoarseness, lip swelling, mouth lesions, mouth pain, sore throat, tongue swelling, throat swelling, other, difficulty swallowing or neck pain Resp Respiratory: No cough, change in phlegm color, chest congestion, excessive phlegm production, hemoptysis, pain on inspiration, shortness of breath, pain with cough, snoring, stridor, wheezing or other Cardio Cardiology: No chest pain at rest, chest pain with exertion, leg pain with exertion, excessive sweating, shortness of breath, dyspnea on exertion, generalized swelling, irregular heart rhythm, lightheadedness, orthopnea, radiating jaw, neck or arm pain, fast heart rate, slow heart rate, palpitations or other Gastro GI: No abdominal pain, belching, bloating, change in bowel habits, change in stool character, coffee ground emesis, constipation, cramping, diarrhea, heartburn, difficulty swallowing, feeling full early, excessive flatus, incontinent of stools, Vomiting blood/hematemesis, blood in stool, loose stools, Black,tarry stools, nausea/dyspepsia, pain with swallowing, vomiting or other Genitourinary-Female: No difficulty urinating, burning urination, painful urination, urinary incontinence, urinary frequency, urinary urgency, urinary hesitancy, urinary retention, blood in urine, Frequent nighttime urination/ nocturia, post void dribbling, suprapubic fullness, side pain, sexual problems, genital lesions, genital itching, hot flashes, abnormal periods, abnormal vaginal bleeding, absent period, painful periods, light periods, heavy periods, difficulty getting , painful intercourse, pelvic pain, vaginal dryness, vaginal odor, Vaginal Itching or other Musc Musculoskeletal: No abnormal walking, joint pain, back pain, deformity, joint swelling, limited range of motion, loss of height, muscle cramps, muscle weakness, decreased muscle mass, body aches, neck pain, numbness, radiating pain into limb, stiffness, tingling or other Neuro Neurology: No frequent falls, weakness, visual disturbances, abnormal hearing, headache(s), abnormal walking, numbness or tingling Psych Psychiatric: No abnormal sleep pattern, No change in appetite Endo Endocrine: No fatigue, other or excessive sweating Aller/Imm Allergy/Immunologic: No lip swelling, tongue swelling, throat swelling or wheezing Assessment AND Plan 1. Non-toxic multinodular goiter E04.2 Patient Instructions Will update patient labs and ultrasound. Denies any difficulty with swallowing or choking on food. Following with Dr. Garcia for medical care. Plan Detail Other Orders Orders: Additional Comments Control portions Food selections should be healthy Choose more low carb vegetables Avoid snacks and desserts. Drink water Exercise daily Eat more fresh foods, not canned or processed Eat more slowly RTC 1 year Coding Level of Care Code Off vis,est,level 3 Diagnoses Non-toxic multinodular goiter E04.2 Time Spent (min) 30 Depression Screen PHQ-2/9 PHQ-2 Over the last 2 weeks, how often have you been bothered by any of the following problems? 1. Little interest or pleasure in doing things: not at all 2. Feeling down, depressed, or hopeless: not at all Total score: 0 If score is 2 or greater, continue Source: Developed by Drs. Cruzito Arriola, Yolanda Spencer, Mingo Altman and colleagues, with an educational amberly from [employer]. Scoring: Total Score Depression Severity Action 1-4 Minimal depression No action needed 5-9 Mild depression Repeat PHQ-9 at follow up 10-14 Moderate depression Make tx plan,consider counseling, fup, prescription 07/17/17 6303 <Electronically signed by Zee GRIMES> Date Zee GRIMES Cosigner Signature: Date (if applicable) CC: 12 LEAD ELECTROCARDIOGRAM Observed: 06/24/2017 Status: F Source: [place] 1:23 PM [facility] REPOSITORY [facility] Cardiovascular Services [address] [place] [address] 12 Lead EKG 06/22/17 1036 MR#: [id number] Acct: [id number] Name: LACY ALVARADO Rep #: [id number] : 1950 66 From: Newton Odonnell MD Attending Dr: Status: DEP ER Ordering Dr: Luis Miguel Pham MD Date: 06/22/17 Location: ED Sex: F AA Admitted: Test Reason : GEN ILL Blood Pressure : / mmHG Vent. Rate : 100 BPM Atrial Rate : 100 BPM P-R Int : 150 ms QRS Dur : 080 ms QT Int : 344 ms P-R-T Axes : 057 034 044 degrees QTc Int : 443 ms Normal sinus rhythm Low voltage QRS Confirmed by MILADY ZUNIGA, NEWTON ([id number]), acquisition editor NITISH CLARKE ([id number]) on 06/24/2017 1:22:46 PM Referred By: JOSE E Confirmed By:NEWTON ODONNELL MD 06/24/17 1322 Date Newton Odonnell MD CC: Mayda Garcia MD; Luis Miguel Pham MD Signed INTERNAL MEDICINE Observed: 06/23/2017 Status: F Source: [place] OFFICE VISIT 5:55 PM [facility] [address] [place] [address] OFFICE VISIT Date of Service: 06/23/17 MR#: [id number] Acct: [id number] Name: LACY ALVARADO Rep #: [id number] : 1950 Provider: Saul Nicole NP Age/Sex: 66/F Location: [facility] Status: Signed Intake Vital Signs06/23/17 Height 5 ft 2 in Intake Visit Reasons: ER follow-up Chief Complaint: body aches Is patient in pain?: Yes (body aches) Pain scale (1-10): 10 Allergies prednisone Adverse Reaction (Verified 02/26/17 20:33) Nausea Medications Metformin HCl [Glucophage] 500 mg PO BIDCM 02/22/13 [History Confirmed 06/22/17] Gabapentin 600 mg PO BID 02/23/13 [History Confirmed 06/22/17] Glimepiride [Amaryl] 2 mg PO DAILY 02/23/13 [History Confirmed 06/22/17] Hydroxychloroquine [Plaquenil] 200 mg PO BIDCM 02/23/13 [History Confirmed 06/22/17] Meloxicam [Mobic] 7.5 mg PO DAILY 02/23/13 [History Confirmed 06/22/17] Nitroglycerin [Nitrostat] 0.4 mg SUBLINGUAL Q5M PRN 02/23/13 [History Confirmed 06/22/17] Omeprazole [Prilosec] 20 mg PO DAILY 02/23/13 [History Confirmed 06/22/17] Verapamil [Calan] 120 mg PO QHS 02/23/13 [History Confirmed 06/22/17] Dicyclomine HCl [Bentyl] 20 mg PO TIDAC PRN #16 cap 12/25/15 [Rx Confirmed 06/22/17] Divalproex Sodium [Depakote ER] 1,000 mg PO QHS 07/12/16 [History Confirmed 06/22/17] Atorvastatin Calcium [Lipitor] 40 mg PO QHS 08/24/16 [History Confirmed 06/22/17] Aspirin [Aspirin, Baby] 81 mg PO DAILY@0800 02/26/17 [History Confirmed 06/22/17] Cholecalciferol (Vitamin D3) [Vitamin D3] 2,000 unit PO DAILY 02/26/17 [History Confirmed 06/22/17] Losartan Potassium [Cozaar] 25 mg PO DAILY 02/26/17 [History Confirmed 06/22/17] Hydrocodone Bitart/Apap 5-325 [[place] 5/325] 1 - 2 tab PO Q4H PRN PRN #12 tab 02/27/17 [Rx Confirmed 06/22/17] cyclobenzaprine 10 mg tablet 10 mg PO TID PRN #30 tab 05/18/17 [Rx Confirmed 06/22/17] triamcinolone acetonide 0.025 % topical ointment 1 applic TOPICAL QDAY #80 g 05/18/17 [Rx Confirmed 06/22/17] benzonatate 100 mg capsule 100 mg PO TID PRN #20 cap 06/23/17 [Rx Confirmed 06/23/17] fluticasone 50 mcg/actuation nasal spray,suspension 1 spray INTRANASAL BID #16 g 06/23/17 [Rx Confirmed 06/23/17] PFSH Medical History Arthritis (Acute) Heart disease (Acute) High cholesterol (Acute) Hives (Acute) Seasonal allergies (Acute) Seizures (Acute) HTN (hypertension) (Chronic) Surgical History H/O: hysterectomy (Acute) History of carpal tunnel surgery (Acute) History of section (Acute) Family History Grandmother Alcoholism Cancer Arthritis Mother Alcoholism Diabetes blood clots Hypertension Grandfather Heart disease Sister Thyroid disorder Other Breast cancer Cervical cancer Colon cancer Social History Smoking Status: Never smoker second hand exposure: Yes alcohol intake: never substance use type: does not use what type of physical activity do you participate in: none HPI HPI Chief Complaint: body aches Details: LACY ALVARADO, is a 66 F who presents to the office today for an acute visit of cough and body aches. She has a past medical history as listed above. The patient was seen at [facility] emergency department yesterday and diagnosed with viral illness. A rapid influenza and chest x-ray was done which was negative. The patient states that her symptoms of fever, chills, body aches, and productive cough of green-yellow sputum began approximately 2 days ago. 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 The patient does state that her chest is occasionally tight with all the coughing. 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 She denies any other aggravating or relieving factors. She otherwise denies any nausea, vomiting, shortness of breath, chest pain or pressure, syncope or presyncopal episodes ROS Const Constitutional: Positive for body ache, chills, fatigue, weakness and headache(s); no weight change, sleep problems, fever(s), change in appetite, snoring, frequent falls or excessive sweating Eyes Eyes: No change in vision, eye pain, light sensitivity or blurry vision ENT ENT: Positive for headache(s), nasal congestion and sore throat; no abnormal hearing, ear pain, tinnitus or neck pain Resp Respiratory: Positive for cough Cough: Yes productive; no snoring, shortness of breath or wheezing Cardio Cardiology: Positive for chest pain at rest (With coughing); no excessive sweating, chest pain with exertion, shortness of breath, dyspnea on exertion, palpitations, orthopnea or lightheadedness Gastro GI: Positive for diarrhea and nausea/dyspepsia; no abdominal pain, change in bowel habits, constipation, vomiting or cramping Musc Musculoskeletal: Positive for numbness (left arm); no neck pain, abnormal walking, joint pain, back pain, limited range of motion or tingling Skin Skin: No redness, dry skin, itching, lesions, wounds or rash Neuro Neurology: Positive for weakness, headache(s) and numbness (left arm); no frequent falls, abnormal hearing, abnormal walking, tingling, abnormal speech, dizziness or memory loss Psych Psychiatric: No change in appetite, No memory loss, No anxiety, No depression, No Thoughts of harming yourself/Others Endo Endocrine: Positive for fatigue; no excessive sweating, cold intolerance, increased thirst/drinking, heat intolerance, flushing or increased hunger Aller/Imm Allergy/Immunologic: No wheezing, itchy eyes, hives or seasonal allergy symptoms True/Lymp Hematologic/Lymphatic: No easy bleeding, easy bruising or enlarged lymph nodes Exam Const General: cooperative, comfortable, no acute distress, ill appearing acutely Nutritional Appearance: average body habitus, well nourished Orientation: alert, oriented x3 Limitations: mental status not altered [facility] Head: normal to inspection Ears: hearing grossly normal bilaterally Nose: external nose normal Face and sinus: normal facial exam Mouth: oral mucosae normal Throat: posterior oropharynx normal Eyes General: appearance normal, both eyes and all related structures Neck Neck: lymphadenopathy (Bilateral anterior submandibular and cervical) Resp Effort AND Inspection: normal respiratory effort, able to speak in complete sentences, normal respiratory pattern, symmetric chest movement, no audible wheezes, no cough Auscultation: Bilateral: Clear to Auscultation Cardio Palpation: normal PMI Rate: regular rate Heart Sounds: S1 normal, S2 normal, normal S1 and S2, no click, no gallops, no murmurs, no rubs Skin General: no rashes or lesions noted, elasticity normal, turgor normal Lesions: no lesions Rashes: no rashes Neuro General: alert, awake, oriented x3, CN's II-XI intact bilaterally Speech: speech normal Gait: normal gait Motor: muscle tone normal throughout Psych Appearance: grossly normal Mental Status: mental status grossly normal Affect: normal affect Attitude: cooperative Thought Process: normal Assessment AND Plan 1. Upper respiratory infection J06.9 Plan Most likely viral nature, her duration of symptoms has been 2 days now. She has not tried any jpxw-tjn-oywizfl treatments. Discussed with her given the fact that she is on Mobic, would advise her to take Tylenol for the body aches. Discussed with her using her Flonase to help with her sinus symptoms and advised on other ozlg-lrd-kvkghvt treatments as well. Tessalon was given for cough. Work excuse was given for today and tomorrow. Discussed with patient to notify our office if she is not feeling better in the next couple of days. Discussed supportive treatments which include hand hygiene, increasing her fluid intake, and rest. Discussed red flag symptoms that require urgent medical attention. ER notes reviewed and chest x-ray was done yesterday that was negative and rapid influenza was negative yesterday as well. Camron disclaimer 2. Cough R05 Plan Plan as above. Plan Detail Other Medications New: Changed: Coding Level of Care Code Off vis,est,level 3 Diagnoses Upper respiratory infection J06.9 Cough R05 06/23/17 9657 <Electronically signed by Saul GRIMES> Date Saul GRIMES Cosigner Signature: Date (if applicable) CC: DISCHARGE INSTRUCTION Observed: 06/22/2017 Status: F Source: [place] 11:23 [facility] Medical Records Department [address] [place] [address] Discharge Instruction 06/22/17 1122 MR#: [id number] Acct: [id number] Name: LACY ALVARADO Rep #: [id number] : 1950 66 From: Luis Miguel Pham MD PCP: Mayda Garcia MD Status: REG ER ED Disposition - Plan for ED Patient: Chief Complaint: General Illness Instructions: ED Viral Syndrome Referrals: Mayda Garcia MD [Primary Care Provider] - What to do if you have Problems For any increased pain, shortness of breath, bleeding, nausea or vomiting, chest pain, or any unexpected problems, contact your Primary Care Provider. Call [facility] ([phone]) or report to the closest Emergency Room. Call 911 if necessary. 06/22/17 1123 <Electronically signed by Luis Miguel Pham MD> Date Luis Miguel Pham MD Cosigner Signature (If Indicated): Date CC: Mayda Garcia MD EMERGENCY DEPARTMENT Observed: 06/22/2017 Status: F Source: [place] SUMMARY 11:22 [facility] Medical Records Department [address] [place] [address] Emergency Department Summary 06/22/17 1119 MR#: [id number] Acct: [id number] Name: LACY ALVARADO Rep #: [id number] : 1950 66 From: Luis Miguel Pham MD PCP: Mayda Garcia MD Status: REG ER - ER Visit Summary Date of Service: 06/22/17 Chief Complaint: Chills and myalgias History of Present Illness: The patient is a 66 F who presents with fever of about 100, chills muscle and joint aches. She became ill yesterday. She reports chills sweats nasal congestion sore throat. She complains of chest tightness which is worse with inspiration. She reports productive cough and diarrhea. She complains of muscle aches and joint aches. She does not feel short of breath. She denies abdominal pain. No vomiting. Physical Examination: Afebrile heart rate 110 respiratory rate 22 pulse ox 100% on room air Moist mucous membranes Heart regular rhythm tachycardia Lungs are clear without rales rhonchi or wheezes Abdomen soft and nontender Alert and oriented Test Results: Rapid influenza negative. CBC BMP unremarkable and troponin negative. EKG shows sinus rhythm at a rate of 100. Two-view chest x-ray shows no acute process. Emergency Department Course and Treatment: Was given IV fluids and Toradol here for symptomatic treatment. On reevaluation she does report improvement. Her heart rate is less than 100 and she maintains a pulse ox of 100%. She is slightly tachypneic but in no distress no retractions able speak in full sentences with no difficulty. I do believe this is related to a viral syndrome. She was instructed on supportive care. She is comfortable with the plan and all questions were answered at bedside. She does understand return for new or worsening symptoms and was discharged home. Treatment Plan: [] Disposition: Discharge Impression: Viral syndrome This note was generated with AssertID dictation software. It may contain incorrect words, spelling, and punctuation that were not noted in review of the chart prior to signing ED Disposition - Plan for ED Patient: Chief Complaint: General Illness Referrals: Mayda Garcia MD [Primary Care Provider] - What to do if you have Problems For any increased pain, shortness of breath, bleeding, nausea or vomiting, chest pain, or any unexpected problems, contact your Primary Care Provider. Call [facility] ([phone]) or report to the closest Emergency Room. Call 911 if necessary. 06/22/17 1122 <Electronically signed by Luis Miguel Pham MD> Date Luis Miguel Pham MD Cosigner Signature (If Indicated): Date CC: Mayda Garcia MD Observed: 06/22/2017 Status: F Source: [place] INFLUENZA A+B (RAPID 10:35 AM [facility]) REPOSITORY FLU A/B Rapid Negative test results should be confirmed by culture. Order Rapid Viral Culture for Influenzae A+B ([id number]) if clinically indicated. Influenza Ag, Direct Presumptive NEGATIVE for Influenza A/B Antigen (See Note) Performed By: #### M101.0101 #### [facility] Laboratory [address] [place], [address] BASIC METABOLIC Collected: 06/22/2017 Status: F Source: [place] PROFILE (BMP) 10:25 AM [facility] REPOSITORY Order Comment: 'TROP' Serial specimen #1, #2, #3, or #4: 1 TYPE CODE TESTS RESULT OUT OF RANGE REFERENCE UNITS LAB L501.0100 74-106 mg/dL Normal GLU 103 Result Comment: Fasting Glucose result from 100 to 125 mg/dL suggests IMPAIRED HOMEOSTASIS per A.D.A. criteria. Please note revised GLUCOSE reference range effective 2017. LAB L501.1000 7-18 mg/dL Normal BUN 14 LAB L501.1100 0.55-1.02 mg/dL Normal CREAT,SERUM 0.86 Result Comment: The validity of the calculated GFR AND GFRAA in patients over 70 years has not been determined. Clinical correlation is essential. LAB L501.1110 >60 mL/min Normal EST GFR 71 Result Comment: Non- GFR Calc LAB L501.1115 >60 mL/min Normal EST GFR - AA 85 Result Comment: GFR Calc LAB L501.1255 ml/min Normal Estimated CRCL 52.27 LAB L501.1300 10-20 RATIO Normal BUN/CRE 16.3 LAB L501.2200 8.5-10 mg/dL Normal .1 CA 8.7 LAB L501.5300 136-14 mmol/L Normal 5 NA 140 LAB L501.5600 3.5-5. mmol/L Normal 1 K 3.8 LAB L501.5900 98-107 mmol/L Normal CL 106 LAB L501.6100 21.0-3 mmol/L Normal 2.0 CO2 28.0 LAB L501.6200 5-15 Normal GAP 6 Performed By: #### L500.2500, L501.4010 #### [facility] Laboratory [address] [place], [address] TROPONIN-I Collected: 06/22/2017 Status: F Source: [place] 10:25 AM [facility] REPOSITORY Order Comment: 'TROP' Serial specimen #1, #2, #3, or #4: 1 TYPE CODE TESTS RESULT OUT OF RANGE REFERENCE UNITS LAB L501.4010 <0.06 ng/mL Normal < 0.02 TROPONIN-I Result Comment: TROPONIN-I EXPECTED VALUES <0.05 NEGATIVE 0.06 - 0.59 AT RISK OF TX > OR = 0.60 SUGGEST TX Performed By: #### L500.2500, L501.4010 #### [facility] [address] [place], [place], [address] CBC W/DIFF, AUTOMATED Collected: 06/22/2017 Status: F Source: [place] 10:25 AM [facility] REPOSITORY TYPE CODE TESTS RESULT OUT OF RANGE REFERENCE UNITS LAB L100.1000 4.4-11.0 K/mm3 Normal WBC 8.3 LAB L100.1200 4.2-5.4 M/mm3 Low RBC 3.81 LAB L100.1300 12.0-15.0 g/dl Low HGB 11.9 LAB L100.1400 37-47 % Low HCT 36.0 LAB L100.1500 81-99 fL Normal MCV 94.5 LAB L100.1600 27.0-32.0 pg Normal MCH 31.2 LAB L100.1700 32-36 g/gl Normal MCHC 33.1 LAB L100.1810 11.6-14.6 % Normal RDW CV 13.2 LAB L100.1820 35.1-43.9 fl Normal RDW SD 43.6 LAB L100.1900 150-450 K/mm3 Normal PLT 195 LAB L100.2000 6.2-12.0 fl Normal MPV 10.5 LAB L100.2100 47-70 % High NEUT% 73.0 LAB L100.2200 19-41 % Low LY% 16.4 LAB L100.2300 0-10 % Normal MONO% 8.4 LAB L100.2400 0-5 % Normal EO% 1.9 LAB L100.2500 0-1 % Normal BASO% 0.2 LAB L100.2550 0.0-0.9 % Normal IM GRAN % 0.100 Result Comment: IG% - Immature Granulocytes (promyelocytes, myelocytes and metamyelocytes) > 1% indicates that a LEFT SHIFT is Present. LAB L100.2620 2.0-7.7 X10 3/uL Normal Absolute Neut 6.0 LAB L100.2720 0.83-4.51 X10 3/ul Normal Absolute Lymph 1.35 Performed By: #### L100.0100 #### [facility] [address], [address] CHEST PA AND LATERAL Observed: 06/22/2017 Status: F Source: [place] 10:20 AM [facility] REPOSITORY [facility] Imaging Services [address] [place] [address] Chest PA and Lateral MR#: [id number] Acct: [id number] Name: LACY ALVARADO Rep #: [id number] : 1950 F 66 From: Jossue Abel MD PCP: Mayda Garcia MD Status: REG ER Study: Chest PA and Lateral Date of Exam: 06/22/17 Exam# [id number] Ordering Dr: Luis Miguel Pham MD STUDY: X-RAY CHEST REASON FOR EXAM: Female, 66 years old. Cough. TECHNIQUE: PA and lateral views of the chest. COMPARISON: June 17, 2016 FINDINGS: There are monitoring devices. Stable elevation of the right hemidiaphragm. There is no demonstrated pleural abnormality. Normal size heart. Normal mediastinum and allie. Normal visualized pulmonary arteries. Normal visualized aortic arch and descending thoracic aorta. There is demineralization of the osseous structures. Degenerative change of the spine and shoulders . There is no demonstrated abnormality of the visualized soft tissue structures of the upper abdomen. RAD/Chest PA and Lateral IMPRESSION: Degenerative changes, as described above. No demonstrated acute cardiopulmonary process. Electronically Signed: Jossue Abel MD at 11:11 EST , Service support , CC: Mayda Garcia MD; Luis Miguel Pham MD Yarn Texturing Machine Operator: Signed INTERNAL MEDICINE Observed: 05/21/2017 Status: F Source: [place] OFFICE VISIT 1:32 PM [facility] [address] [place] [address] OFFICE VISIT Date of Service: 05/18/17 MR#: [id number] Acct: [id number] Name: LACY ALVARADO Rep #: [id number] : 1950 Provider: Mayda Garcia MD Age/Sex: 66/F Location: [facility] Status: Signed Intake Vital Signs05/18/17 Height 5 ft 2 in 05/18/17 Weight: 180 lb 4 oz Intake Visit Reasons: new pt. visit Tool Crib Attendant Required: No Accompanied by: None Is patient in pain?: Yes (right foot) Pain scale (1-10): 7 Allergies prednisone Adverse Reaction (Verified 02/26/17 20:33) Nausea Medications Metformin HCl [Glucophage] 500 mg PO BIDCM 02/22/13 [History Confirmed 02/26/17] Gabapentin 600 mg PO BID 02/23/13 [History Confirmed 02/26/17] Glimepiride [Amaryl] 2 mg PO DAILY 02/23/13 [History Confirmed 02/26/17] Hydroxychloroquine [Plaquenil] 200 mg PO BIDCM 02/23/13 [History Confirmed 02/26/17] Meloxicam [Mobic] 7.5 mg PO DAILY 02/23/13 [History Confirmed 02/26/17] Nitroglycerin [Nitrostat] 0.4 mg SUBLINGUAL Q5M PRN 02/23/13 [History Confirmed 02/26/17] Omeprazole [Prilosec] 20 mg PO DAILY 02/23/13 [History Confirmed 02/26/17] Verapamil [Calan] 120 mg PO QHS 02/23/13 [History Confirmed 02/26/17] Dicyclomine HCl [Bentyl] 20 mg PO TIDAC PRN #16 cap 12/25/15 [Rx Confirmed 02/26/17] Divalproex Sodium [Depakote ER] 1,000 mg PO QHS 07/12/16 [History Confirmed 02/26/17] Atorvastatin Calcium [Lipitor] 40 mg PO QHS 08/24/16 [History Confirmed 02/26/17] Aspirin [Aspirin, Baby] 81 mg PO DAILY@0800 02/26/17 [History Confirmed 02/26/17] Cholecalciferol (Vitamin D3) [Vitamin D3] 2,000 unit PO DAILY 02/26/17 [History Confirmed 02/26/17] Fluticasone 0.05% [Flonase Nasal [place]] 1 spray NASAL BID 02/26/17 [History Confirmed 02/26/17] Losartan Potassium [Cozaar] 25 mg PO DAILY 02/26/17 [History Confirmed 02/26/17] Hydrocodone Bitart/Apap 5-325 [[place] 5/325] 1 - 2 tab PO Q4H PRN PRN #12 tab 02/27/17 [Rx] cyclobenzaprine 10 mg tablet 10 mg PO TID PRN #30 tab 05/18/17 [Rx Confirmed 05/18/17] triamcinolone acetonide 0.025 % topical ointment 1 applic TOPICAL QDAY #80 g 05/18/17 [Rx Confirmed 05/18/17] PFSH Medical History Arthritis (Acute) Heart disease (Acute) High cholesterol (Acute) Hives (Acute) Seasonal allergies (Acute) Seizures (Acute) HTN (hypertension) (Chronic) Surgical History H/O: hysterectomy (Acute) History of carpal tunnel surgery (Acute) History of section (Acute) Family History Grandmother Alcoholism Cancer Arthritis Mother Alcoholism Diabetes blood clots Hypertension Grandfather Heart disease Sister Thyroid disorder Other Breast cancer Cervical cancer Colon cancer Social History Smoking Status: Never smoker second hand exposure: Yes alcohol intake: never substance use type: does not use what type of physical activity do you participate in: none HPI new pt. visit: Details: LACY ALVARADO, is a 66yo F who presents to the office today to establish care. She had previously followed up at the [facility]. She has a PMH of Hypertension, Hyperlipidemia, CHF, Seizure disorder, Diabetes Mellitus ( non insulin dependent ), Rheumatoid arthritis Osteoarthritis and LINA. She has no acute complaints at this time. She is currently on glimepiride and metformin and reports compliance. She however, does not remember her last A1C. She routinely checks her blood sugars at home. 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 Blood pressure in the office is noted to be elevated. She reports compliance with her medications. 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 She however, would like to transfer care to [facility]. Last seizure episode was about 2 years ago after a period of poor compliance with her medication. She would like to be established with a new neurologist. She reports compliance with her medications now. ROS Const Constitutional: Positive for sleep problems; no body ache, chills, fatigue, fever(s), frequent falls, weight change, change in appetite, snoring, excessive sweating or weakness Eyes Eyes: Positive for blurry vision; no change in vision, eye pain or light sensitivity ENT ENT: No abnormal hearing, tinnitus, nasal discharge or neck pain Resp Respiratory: No snoring, cough, shortness of breath or wheezing Cardio Cardiology: No excessive sweating, shortness of breath, dyspnea on exertion, orthopnea, palpitations or lightheadedness Gastro GI: No abdominal pain, change in bowel habits, diarrhea, vomiting, nausea/dyspepsia or cramping Genitourinary-Female: No difficulty urinating, burning urination, painful urination, urinary frequency, urinary urgency, urinary incontinence, blood in urine, urinary retention or urinary hesitancy Musc Musculoskeletal: No neck pain, abnormal walking, joint pain, back pain, limited range of motion, numbness or tingling Skin Skin: No redness, dry skin, itching, lesions, wounds or rash Neuro Neurology: No frequent falls, weakness, abnormal hearing, abnormal walking, numbness, tingling, abnormal speech, dizziness or memory loss Psych Psychiatric: No change in appetite, No memory loss, No anxiety, No depression, No Thoughts of harming yourself/Others Endo Endocrine: No fatigue, excessive sweating, cold intolerance, increased thirst/drinking, heat intolerance, increased hunger or flushing Aller/Imm Allergy/Immunologic: No wheezing, itchy eyes, seasonal allergy symptoms or hives True/Lymp Hematologic/Lymphatic: No easy bleeding, easy bruising or enlarged lymph nodes Exam Const General: cooperative, no acute distress, well developed Orientation: alert, awake, oriented x3 [facility] Head: atraumatic, normocephalic Ears: hearing grossly normal bilaterally Eyes General: appearance normal, both eyes and all related structures Conjunctivae: conjunctivae normal Pupils: PERRL Resp Effort AND Inspection: normal respiratory effort, able to speak in complete sentences Auscultation: Bilateral: Clear to Auscultation Cardio Rate: regular rate Rhythm: regular rhythm Heart Sounds: S1 normal, S2 normal GI Palpation: soft, no hepatosplenomegaly Skin Rashes: rashes noted (Left distal leg. Numular excema.) Neuro General: alert, awake, oriented x3, CN's II-XI intact bilaterally, moves all extremities Extrem General: pedal edema (Right foot extending to just above the ankle.) Psych Appearance: grossly normal Mental Status: mental status grossly normal Affect: normal affect Assessment AND Plan 1. Diabetes mellitus E11.9 type 2 Plan Well controlled per patient. Currently on Metformin and Glimepiride. Will get an A1C and Microablbumin creatinine ratio. Continue current management. Follow up with results. Orders Orders: 2. Hypertension I10 Plan Not optimally controlled. Patient reports compliance with her medication Will make no changes at this time. Continue current medication. Life style recommendations advised. Follow up at next visit. 3. Chronic diastolic CHF (congestive heart failure) I50.32 Echocardiogram showed ejection fraction 70% with stage I diastolic dysfunction; nuclear stress test in 2011 negative for inducible ischemia Plan Stable per patient. She would like to transfer care to [facility]. [facility] refer to the [facility]. Orders Referrals: 4. Obstructive sleep apnea G47.33 Plan Last Sleep Study was about 2 years ago. She currently uses a Cpap however, she has had problems with her mask. Referred to the Sleep Lab for education and Fitting. Orders Orders: 5. Seizure disorder G40.909 Plan Ongoing since childhood. Well controlled on current medication. Last seizure episode was 2 years ago after a period of poor compliance. Medication compliance advised. Referred to Neurology. Orders Referrals: 6. Rheumatoid arthritis M06.9 Plan Currently on plaquenil and meloxicam. Referred to dr. Rowland. Continue follow up with Ophthalmology Continue current medication. Orders Referrals: 7. Dermatitis L30.9 Plan Recurrent. 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 Prescription for Triamcinolone given. This note was generated with CeutiCareation software. It may contain incorrect words, spelling, and punctuation that were not noted in checking the note before signing. Plan Detail Other Medications New: Follow Up 3 Months Coding Level of Care Code Off vis,new,level 4 Diagnoses Diabetes mellitus E11.9 Hypertension I10 Chronic diastolic CHF (congestive heart failure) I50.32 Obstructive sleep apnea G47.33 Seizure disorder G40.909 Rheumatoid arthritis M06.9 Dermatitis L30.9 05/21/17 1332 <Electronically signed by Mayda Garcia MD> Date Mayda Garcia MD Cosigner Signature: Date (if applicable) CC: MICROALB:CREAT Collected: 05/18/2017 Status: F Source: [facility] UR 10:15 AM [facility] REPOSITORY TYPE CODE TESTS RESULT OUT OF RANGE REFERENCE UNITS LAB L501.1200 NO RANGE EST. mg/dL Normal UR CREAT 135.00 LAB L502.0500 NO RANGE EST. mg/L Normal 10.7 MICROALBUMIN ,UR LAB L502.0600 <30 mg/g CRE mg/g CRE Normal 7.9 MALB:CREAT Performed By: #### L502.0250, L501.9985 #### [facility] [address] [place], [address] HEMOGLOBIN A1C Collected: 05/18/2017 Status: F Source: SAN[place]E 10:15 AM [facility] REPOSITORY TYPE CODE TESTS RESULT OUT OF RANGE REFERENCE UNITS LAB L501.9985 4.2-6.3 % High HGB A1C 6.7 Performed By: #### L502.0250, L501.9985 #### [facility] Laboratory [address] [place], [address] ALLERGIES ALLERGIES DATE TYPE / CODE NAME / CODE REACTION SEVERITY SOURCE 04/16/2018 Drug prednisone/F0060 Nausea Unknown [facility] Allergy/416 15357(RXNORM) Hospital 178513(SNOM Repository ED CT) 01/30/2014 Environ/420 SEASONAL OTHER: SEE C [facility] 936735(SNOM ALLERGIES [place] [facility]) Repository /[id number] SEASONAL [facility] 6(SNOMED ALLERGIES Health System CT) Repository ENCOUNTERS ENCOUNTERS ADMIT/DISCHARGE ACCOUNT NUMBER ADMITTING ENCOUNTER LOCATION SOURCE CLASS 04/19/2018 [id number] Ambulatory [facility] ding:CR Repository 04/16/2018/04/16/20 [id number] Ambulatory BMSBuilding: [place] [address] [facility] Repository 04/14/2018 [id number] Ambulatory BMSBuilding: [place] BMS.[facility] Repository 04/12/2018 [id number] Ambulatory [facility] ding:LAB Repository 03/30/2018 [id number] Ambulatory [facility] ding:CR Repository 03/29/2018/03/29/20 [id number] Ambulatory BMSBuilding: [place] 18 [facility] Repository 03/21/2018 [id number] Agyepong, Ambulatory BMSBuilding: [place] Parker BMS.[facility] Repository 03/21/2018/03/23/20 [id number] Ambulatory BMSBuilding: [place] 18 [facility] Repository 03/21/2018 [id number] Agyepong, Ambulatory BMSBuilding: [place] Parker BMS.[facility] Repository 03/21/2018 [id number] Agyepong, Ambulatory BMSBuilding: [place] Parker BMS.CF.[facility] Repository 03/21/2018/03/23/20 [id number] Agyep[place], Inpatient [place] [facility] ding:ICURoom Repository : [id number]: 1 03/20/2018 [id number] Agyepong, Ambulatory BMSBuilding: [place] Canales BMS.[facility] Repository 03/20/2018 [id number] Agyepong, Ambulatory BMSBuilding: [place] Canales BMS..[facility] Repository 03/20/2018 [id number] Agyepong, Ambulatory BMSBuilding: [place] Canales BMS.[facility] Repository 03/20/2018 [id number] Ambulatory BMSBuilding: [facility] Repository 02/25/2018/03/01/20 [id number] Ambulatory [place] 18 [facility] [place] Repository 02/22/2018/02/23/20 [id number] Ambulatory [address] [place] Repository 02/22/2018/02/23/20 [id number] Ambulatory [facility] [place] Repository 02/18/2018/02/23/20 [id number] Ambulatory [facility] [place] Repository 02/11/2018/02/13/20 [id number] Ambulatory [place] 18 [facility] [place] Repository 02/09/2018 [id number] Ambulatory Building:[facility] Repository 02/04/2018/02/05/20 [id number] Ambulatory [place] 18 [facility] [place] Repository 02/02/2018/02/04/20 [id number] Ambulatory [facility] [place] Repository 01/28/2018/02/02/20 [id number] Ambulatory [place] [place] Repository 01/26/2018/01/28/20 [id number] Ambulatory [place] [place] Repository 01/21/2018/01/26/20 [id number] Ambulatory [facility] [place] Repository 01/14/2018 [id number] [facility]ulatory [facility] [place] Repository 01/13/2018 [id number] Ambulatory [facility] ding:OPBD Repository 01/12/2018/01/14/20 [id number] Ambulatory [place] 18 [facility] [place] Repository 01/11/2018/01/12/20 [id number] Ambulatory [place] [facility] [place] Repository 01/07/2018/01/09/20 [id number] Ambulatory [address] Repository 01/05/2018/01/07/20 [id number] Ambulatory [address] Repository 12/25/2017/12/26/19 [id number] Ambulatory BMSBuilding: [place] 18 [facility] Repository 12/17/2017/12/18/19 [id number] Ambulatory [address] Repository 12/09/2017/12/10/19 [id number] Ambulatory [address] Repository 12/07/2017 [id number] Ambulatory BMSBuilding: [place] BMS.[facility] Repository 11/09/2017 [id number] Ambulatory BMSBuilding: [place] BMS.[facility] Repository 10/20/2017 [id number] Ambulatory [facility] ding:MTLAB Repository 10/19/2017 [id number] Ambulatory [facility] ding:CVS Repository 10/19/2017 [id number] Ambulatory BMSBuilding: [place] [facility] Repository 10/15/2017/10/17/19 [id number] Ambulatory [address] Repository 10/14/2017/10/15/19 [id number] Ambulatory [address] Repository 09/23/2017/09/24/19 [id number] Ambulatory BMSBuilding: [place] 18 BMS.[facility] Repository 09/14/2017/09/15/19 [id number] Ambulatory BMSBuilding: [place] 18 BMS.[facility] Repository 08/17/2017/08/18/19 [id number] Ambulatory BMSBuilding: [place] 18 BMS.[facility] Repository 08/13/2017 [id number] Ambulatory [facility] ding:MTLAB Repository 07/29/2017 [id number] Ambulatory [facility] ding:LABSPEC Repository 07/28/2017/07/29/19 [id number] Ambulatory BMSBuilding: [place] 18 BMS.[facility] Repository 07/20/2017/07/21/19 [id number] Ambulatory [address] Repository 07/20/2017/07/21/19 [id number] Ambulatory [address] Repository 07/16/2017/07/17/19 [id number] Ambulatory BMSBuilding: [place] 18 [facility] Repository 06/23/2017/06/23/19 [id number] Ambulatory BMSBuilding: [place] 18 BMS.[facility] Repository 06/22/2017/06/22/19 [id number] Emergency [place] 18 [facility] ding:ED Repository 05/29/2017 [id number] Ambulatory BMSBuilding: [place] BMS.[facility] Repository 05/18/2017 [id number] Ambulatory [place] [facility] ding:MTLAB Repository 05/18/2017/05/18/19 [id number] Ambulatory BMSBuilding: [place] 18 BMS.[facility] Repository PAYERS PAYERS ENCOUNTER GUARANTOR PAYER SUBSCRIBER SOURCE 04/19/2018 LACY L Primary LACY L [place] [id number] Insurance:MEDICARE PHILLIPSDOB: [facility] [address] PART A [facility] [id number] Hospital 110 BLDG Number: Repository [address] [place] [address] [id number]: (330) Date:2018-03-30 [id number] (HP) 04/19/2018 Secondary LACY L [place] Insurance:ANTHEMPolic PHILLIPSDOB: [facility] y Number: [id number] Hospital [id number] Repository Date:6755-91-45UL [address] [address]SJ: 04/19/2018 Tertiary NOT GIVENUNK [place] Insurance:SELF PAY [facility] Number: Effective Repository Date:2018-03-30 04/16/2018 LACY L Primary LACY L [place] [id number] Insurance:MEDICARE PHILLIPSDOB: [facility] [address] PART A [facility] [id number] Hospital 110 BLDG Number: Repository [address] [place] [address] [id number]: (330) Date:2018-03-301216 (HP) 04/16/2018 Secondary LACY L [place] Insurance:ANTHEMPolic PHILLIPSDOB: Community y Number: [id number] Hospital [id number] Repository Date:3043-25-33[address] [place] [address] 49246HM: 04/16/2018 Tertiary NOT GIVENUNK [place] Insurance:SELF PAY [facility] Number: Effective Repository Date:2018-04-12 04/14/2018 LACY L Primary LACY L [place] [id number] Insurance:MEDICARE PHILLIPSDOB: Community [address] PART A [facility] [id number] Hospital 110 BLDG Number: Repository [address] [id number]: (330) Date:2018-04-140706 () 04/14/2018 Secondary LACY L [place] Insurance:ANTHEMPolic PHILLIPSDOB: Community y Number: [id number] Hospital [id number] Repository Date:8161-83-69KY [address] [place] [address] 06700MB: 04/14/2018 Tertiary NOT GIVENUNK [place] Insurance:SELF PAY [facility] Number: Effective Repository Date:2018-04-14 04/12/2018 LAYC L Primary LACY L [place] [id number] Insurance:MEDICARE PHILLIPSDOB: Community [address] PART A [facility] [id number] Hospital 110 BLDG Number: Repository [address] [id number]: (330) Date:2018-04-125449 () 04/12/2018 Secondary LACY L [place] Insurance:ANTHEMPolic PHILLIPSDOB: Community y Number: [id number] Hospital [id number] Repository Date:9573-21-57DP [address] [place] [address] 27595XY: 04/12/2018 Tertiary NOT GIVENUNK [place] Insurance:SELF PAY [facility] Number: Effective Repository Date:2018-04-12 03/30/2018 LACY L Primary LACY L [place] [id number] Insurance:MEDICARE PHILLIPSDOB: Community [address] PART A [facility] [id number] Hospital 110 BLDG Number: Repository [place] nd [id number]: (330) Date:2018-03-231216 () 03/30/2018 Secondary LACY L [place] Insurance:ANTHEMPolic PHILLIPSDOB: Community y Number: [id number] Hospital [id number] Repository Date:1676-75-36CH [address] [place] [address] 72170NB: 03/30/2018 Tertiary NOT GIVENUNK [place] Insurance:SELF PAY [facility] Number: Effective Repository Date:2018-03-23 03/29/2018 LACY L Primary LACY L [place] [id number] Insurance:MEDICARE PHILLIPSDOB: Community [address] PART A [facility] [id number] Hospital 110 BLDG Number: Repository HARJ[place] nd [id number]: (330) Date:2017-12-251219 () 03/29/2018 Secondary LACY L [place] Insurance:ANTHEMPolic PHILLIPSDOB: Community y Number: [id number] Hospital [id number] Repository Date:1812-55-20ZE [address] [place] [address] 54844QJ: 03/29/2018 Tertiary NOT GIVENUNK [place] Insurance:SELF PAY [facility] Number: Effective Repository Date:2018-03-23 03/21/2018 LACY L Primary LACY L [place] [id number] Insurance:MEDICARE PHILLIPSDOB: Community [address] PART A [facility] [id number] Hospital 110 BLDG Number: Repository HARJ[place] nd [id number]: (330) Date:2018-03-201216 () 03/21/2018 Secondary LACY L [place] Insurance:ANTHEMPolic PHILLIPSDOB: Community y Number: [id number] Hospital [id number] Repository Date:8714-35-69QO [address] [place] [address] 39207TD: 03/21/2018 Tertiary NOT GIVENUNK [place] Insurance:SELF PAY [facility] Number: Effective Repository Date:2018-03-21 03/21/2018 LACY L Primary LACY L [place] [id number] Insurance:MEDICARE PHILLIPSDOB: Community [address] PART A [facility] [id number] Hospital 110 BLDG Number: Repository [place] [id number]: 330) Date:2018-03-202571 () 03/21/2018 Secondary LACY L [place] Insurance:ANTHEMPolic PHILLIPSDOB: Community y Number: [id number] Psychiatric [id number] Repository Date:4164-67-61VA [address] [place] [address] 81491SC: 03/21/2018 Tertiary NOT GIVENUNK [place] Insurance:SELF PAY [facility] Number: Effective Repository Date:2018-03-21 03/21/2018 LACY L Primary LACY L [place] [id number] Insurance:MEDICARE PHILLIPSDOB: Community [address] PART A [facility] [id number] Hospital 110 BLDG Number: Repository HARJIT nd [id number]: 330) Date:2018-03-201212 () 03/21/2018 Secondary LACY L [place] Insurance:ANTHEMPolic PHILLIPSDOB: Community y Number: [id number] Hospital [id number] Repository Date:7982-58-34KZ [id number] [place] [address] 85125BD: 03/21/2018 Tertiary NOT GIVENUNK [place] Insurance:SELF PAY [facility] Number: Effective Repository Date:2018-03-21 03/21/2018 LACY L Primary LACY L [place] [id number] Insurance:MEDICARE PHILLIPSDOB: Community [address] PART A [facility] [id number] Hospital 110 BLDG Number: Repository HARJ[place] nd [id number]: (330) Date:2018-03-201216 () 03/21/2018 Secondary LACY L [place] Insurance:ANTHEMPolic PHILLIPSDOB: Community y Number: [id number] Psychiatric [id number] Repository Date:4564-71-80XT [address] [place] [address] [place] 214[address]TS: 03/21/2018 Tertiary NOT GIVENUNK [place] Insurance:SELF PAY [facility] Number: Effective Repository Date:2018-03-21 03/21/2018 LACY L Primary LACY L [place] [id number] Insurance:MEDICARE PHILLIPSDOB: Community [address] PART A [facility] [id number] Hospital 110 BLDG Number: [place] [id number] [address]Isl: (330) Date:2018-03-201216 () 03/21/2018 Secondary LACY L [place] Insurance:ANTHEMPolic PHILLIPSDOB: Community y Number: [id number] Psychiatric [id number] Repository Date:4112-38-46LT [address] [place] [address] [place] [address]NJ: 03/21/2018 Tertiary NOT GIVENUNK [place] Insurance:SELF PAY [facility] Number: Effective Repository Date:2018-03-20 03/20/2018 LACY L Primary LACY L [place] [id number] Insurance:MEDICARE PHILLIPSDOB: Community [address] PART A [facility] [id number] Hospital 110 BLDG Number: Rep[place] [id number]: (330) Date:2018-03-201216 () 03/20/2018 Secondary LACY L [place] Insurance:ANTHEMPolic PHILLIPSDOB: Community y Number: [id number] Hospital [id number] Repository Date:6698-76-36VH [address] [place] [address]JJ: 03/20/2018 Tertiary NOT GIVENUNK [place] Insurance:SELF PAY [facility] Number: Effective Repository Date:2018-03-20 03/20/2018 LACY L Primary LACY L [place] [id number] Insurance:MEDICARE PHILLIPSDOB: Community [address] PART A [facility] [id number] Hospital 110 BLDG Number: Repository [place] [id number]: (330) Date:2018-03-20 () 03/20/2018 Secondary LACY L [place] Insurance:ANTHEMPolic PHILLIPSDOB: Community y Number: [id number] Hospital [id number] Repository Date:1230-45-24ZA [address] [address]AV: 03/20/2018 Tertiary NOT GIVENUNK [place] Insurance:SELF PAY [facility] Number: Effective Repository Date:2018-03-20 03/20/2018 LACY L Primary LACY L [place] [id number] Insurance:MEDICARE PHILLIPSDOB: Community [address] PART A [facility] [id number] Hospital 110 BLDG Number: Repository [place] [id number]: (330) Date:2018-03-201215 () 03/20/2018 Secondary LACY L [place] Insurance:ANTHEMPolic PHILLIPSDOB: Community y Number: [id number] Hospital [id number] Repository Date:9350-68-61TE [address] [place] [address] 715[address]CN: 03/20/2018 Tertiary NOT GIVENUNK [place] Insurance:SELF PAY [facility] Number: Effective Repository Date:2018-03-20 03/20/2018 LACY L Primary LACY L [place] [id number] Insurance:MEDICARE PHILLIPSDOB: Community [address] PART A [facility] [id number] Hospital 110 BLDG Number: Repository [address] [id number] 92470Zdk: (330) Date:2018-03-20 () 03/20/2018 Secondary LACY L [place] Insurance:ANTHEMPolic PHILLIPSDOB: Community y Number: [id number] Hospital [id number] Repository Date:4307-56-87KF [address] [place] [address] 96861BZ: 03/20/2018 Tertiary NOT GIVENUNK [place] Insurance:SELF PAY [facility] Number: Effective Repository Date:2018-03-20 02/09/2018 LACY L Primary LACY L [facility] PHILLIPSDOB: Insurance:MEDICARE A PHILLIPSDOB: [facility] Number: [id number] Repository [address] [id number] [place], [place] Date: [address]Rzd: () 01/13/2018 LACY L Primary LACY L [place] [id number] Insurance:MEDICARE PHILLIPSDOB: Community [address] PART A [facility] [id number] Hospital 110 BLDG Number: Repository [address] [place] [address] [id number]: (330) Date:2017-12-25 201-1212 () 01/13/2018 Secondary LACY L [place] Insurance:ANTHEMPolic PHILLIPSDOB: Community y Number: [id number] Hospital [id number] Repository Date:4522-00-68HF [address] [place] [address] 27917PA: 01/13/2018 Tertiary NOT GIVENUNK [place] Insurance:SELF PAY [facility] Number: Effective Repository Date:2017-12-25 12/25/2017 LACY L Primary LACY L [place] [id number] Insurance:MEDICARE PHILLIPSDOB: Community [address] PART A [facility] [id number] Hospital 110 BLDG Number: Repository [address] [place] [address] [id number]: (330) Date:2017-12-07 201-1216 () 12/25/2017 Secondary LACY L [place] Insurance:ANTHEMPolic PHILLIPSDOB: Community y Number: [id number] Hospital [id number] Repository Date:4574-34-17[address], [place] [address]AZ: 12/25/2017 Tertiary NOT GIVENUNK [place] Insurance:SELF PAY [facility] Number: Effective Repository Date:2017-12-25 12/07/2017 LACY L Primary LACY L [place] [id number] Insurance:MEDICARE PHILLIPSDOB: Community [address] PART A [facility] [id number] Hospital 110 BLDG Number: Repository [address] [place] [address] [id number]: (330) Date:2017-11-061216 () 12/07/2017 Secondary NOT GIVENUNK [place] Insurance:SELF PAY [facility] Number: Effective Repository Date:2017-12-07 11/09/2017 LACY L Primary LACY L [place] [id number] Insurance:MEDICARE PHILLIPSDOB: Community [address] PART A [facility] [id number] Hospital 110 BLDG Number: Repository [address] [place] [address] [id number]: (330) Date:2017-08-171216 () 11/09/2017 Secondary NOT GIVENUNK [place] Insurance:SELF PAY [facility] Number: Effective Repository Date:2017-10-29 10/20/2017 LACY L Primary LACY L [place] [id number] Insurance:MEDICARE PHILLIPSDOB: Community [address] PART A [facility] [id number] Hospital 110 BLDG Number: Repository [address] [place] [address] [id number]: (330) Date:2017-10-201216 (HP) 10/20/2017 Secondary NOT GIVENUNK [place] Insurance:SELF PAY [facility] Number: Effective Repository Date:2017-10-20 10/19/2017 LACY L Primary LACY L [place] [id number] Insurance:MEDICARE PHILLIPSDOB: Community [address] PART A [facility] [id number] Hospital 110 BLDG Number: Repository [address] [place] [address] [id number]: (330) Date:2017-09-231216 () 10/19/2017 Secondary NOT GIVENUNK [place] Insurance:SELF PAY [facility] Number: Effective Repository Date:2017-09-23 10/19/2017 LACY L Primary LACY L [place] [id number] Insurance:MEDICARE PHILLIPSDOB: Community [address] PART A [facility] [id number] Hospital 110 BLDG Number: Repository [address] [place] [address] [id number]: (330) Date:2017-09-231216 () 10/19/2017 Secondary NOT GIVENUNK Sand[place] Insurance:SELF PAY [facility] Number: Effective Repository Date:2017-10-19 09/23/2017 LACY L Primary LACY L Frannie [id number] Insurance:MEDICARE PHILLIPSDOB: [address] [facility] [id number] Hospital 110 BLDG Number: Repository [address] [place] [address] [id number]: (330) Date:2017-08-191216 () 09/23/2017 Secondary NOT GIVENUNK [place] Insurance:SELF PAY [facility] Number: Effective Repository Date:2017-09-23 09/14/2017 LACY L Primary LACY L Sandee [id number] Insurance:MEDICARE PHILLIPSDOB: Community [address] [facility] [id number] Hospital 110 BLDG Number: Repository [address] [place] [address] [id number]: (330) Date:2017-09-141216 () 09/14/2017 Secondary NOT GIVENUNK [place] Insurance:SELF PAY [facility] Number: Effective Repository Date:2017-09-14 08/17/2017 LACY L Primary LACY L Frannie [id number] Insurance:MEDICARE PHILLIPSDOB: Community [address] [facility] [id number] Hospital 110 BLDG Number: Repository [address] [place] [address] [id number]: (330) Date:2017-05-181216 () 08/17/2017 Secondary NOT GIVENUNK Frannie Insurance:SELF PAY [facility] Number: Effective Repository Date:2017-08-17 08/13/2017 LACY L Primary LACY L Sandee [id number] Insurance:MEDICARE PHILLIPSDOB: Community [address] [facility] [id number] Hospital 110 B[address]G Number: [place] [id number]: (330) Date:2017-08-131216 () 08/13/2017 Secondary NOT GIVENUNK [place] Insurance:SELF PAY [facility] Number: Effective Repository Date:2017-08-13 07/29/2017 LACY L Primary LACY L Sandee [id number] Insurance:MEDICARE PHILLIPSDOB: Community [address] [facility] [id number] Hospital 110 BLDG Number: [place] [id number]: (330) Date:2017-07-291216 () 07/29/2017 Secondary NOT GIVENUNK [place] Insurance:SELF PAY [facility] Number: Effective Repository Date:2017-07-29 07/28/2017 LACY L Primary LACY L Sandee [id number] Insurance:MEDICARE PHILLIPSDOB: Community [address] [facility] [id number] Hospital 110 B[address]G Number: [facility] [place] [id number]: (330) Date:2017-07-281216 (HP) 07/28/2017 Secondary NOT GIVENUNK Frannie Insurance:SELF PAY [facility] Number: Effective Repository Date:2017-07-28 07/16/2017 LACY L Primary LACY L Frannie [id number] Insurance:MEDICARE PHILLIPSDOB: Community [address] [facility] [id number] Hospital 110 B[address]G Number: Repository [address] [place] [address] [id number]: (330) Date:2017-05-181216 (HP) 07/16/2017 Secondary NOT GIVENUNK Frannie Insurance:SELF PAY [facility] Number: Effective Repository Date:2017-05-18 06/23/2017 LACY L Primary LACY L Frannie [id number] Insurance:MEDICARE PHILLIPSDOB: Community [address] [facility] [id number] Hospital 110 B[address]G Number: Repository [address] [place] [address] [id number]: (330) Date:2017-06-236 () 06/23/2017 Secondary NOT GIVENUNK [place] Insurance:SELF PAY [facility] Number: Effective Repository Date:2017-06-23 06/22/2017 LACY L Primary LACY L Frannie [id number] Insurance:MEDICARE PHILLIPSDOB: Community [address] [facility] [id number] Hospital 110 [address] Number: Repository [address] [place] [address] [id number]: (330) Date:2017-06-22 () 06/22/2017 Secondary NOT GIVENUNK Frannie Insurance:SELF PAY [facility] Number: Effective Repository Date:2017-06-22 05/29/2017 LACY L Primary LACY L Sandee [id number] Insurance:MEDICARE PHILLIPSDOB: Community [address] [facility] [id number] Hospital 110 B[address]G Number: Repository [address] [place] [address] [id number]: (330) Date:2017-05-276 () 05/29/2017 Secondary NOT GIVENUNK Frannie Insurance:SELF PAY [facility] Number: Effective Repository Date:2017-05-27 05/18/2017 LACY L Primary LACY L Frannie [id number] Insurance:MEDICARE PHILLIPSDOB: Community [address] [facility] [id number] Hospital 110 [address] Number: Repository [address] [place] [address] [id number]: (330) Date:2017-05-181216 () 05/18/2017 Secondary NOT GIVENUNK Sand[place] Insurance:SELF PAY [facility] Number: Effective Repository Date:2017-05-18 05/18/2017 LACY L Primary LACY L Frannie [id number] Insurance:MEDICARE PHILLIPSDOB: Community [address] [facility] [id number] Hospital 110 B[address]G Number: Repository [address] [place] [address] [id number]: (330) Date:2017-05-05 2011216 () 05/18/2017 Secondary NOT GIVENUNK Frannie Insurance:SELF PAY [facility]: Effective Repository Date:2017-05-18
== END ==
PROVIDERS: Family Provider Internal Medicine; PCP Internal Medicine; Referring Provider Internal Medicine Cardiovascular Disease; Visit Provider Internal Medicine Cardiovascular Disease
DX: I25.10 Atherosclerotic heart disease of native coronary artery without angina pectoris (principal); I25.2 Old myocardial infarction; Z95.5 Presence of coronary angioplasty implant and graft

== ENCOUNTER → 2018-04-12 07:25 | Outpatient (CLI) | payer MEDICARE, BC, SELFPAY ==
[2018-03-22 11:02] VITALS: BMI 32.7
[2018-03-30 10:25] VITALS: BMI 32.7
[2018-04-12 09:32] LABS: Hemoglobin A1c 7.7 % (4.2-6.3)
== END ==
PROVIDERS: Family Provider Internal Medicine; PCP Internal Medicine; Referring Provider Internal Medicine; Visit Provider Internal Medicine
DX: E11.9 Type 2 diabetes mellitus without complications (principal); Z95.5 Presence of coronary angioplasty implant and graft
CPT/HCPCS: 36415; 83036; 93798

== ENCOUNTER 2018-04-28 06:30 | Outpatient (RCR) | payer MEDICARE, BC, SELFPAY ==
[2018-03-22 11:02] VITALS: BMI 32.7
[2018-03-30 10:25] VITALS: BMI 32.7
--- NOTE | 2018-04-28 11:25 | PCM.CR.ITP ---
Exercise - 30-day Assessment - Visit Date of Eval: 04/28/18 Session #:: 11 - Stages of Change Stages of Change:: Action - Exercise Prescription Mode:: Treadmill, Airdyne, NuStep Frequency (x/week): 3 Duration:: 30-45 METs - Progression: 0.5-1 MET as tolerated: 3.7 Target Heart Rate:: 116-122 with max HR 127 - Hypertension Resting Blood Pressure:: 106/58 Peak Exercise Blood Pressure:: 164/70 Medication Changes:: No - Intervention Home Exercise/Activity Goal:: Moderate Exercise 30 min/day x 5 days/wk - Education Goals:: Warm-up, RPE BRANDI Scale, S/S, Safe Exercise, Self-Monitoring - Exercise Program Goals Exercise Program Goals: Aerobic Activity >30 min Nutrition - Initial Assessment - Program Goals Nutrition Program Goals: LDL <70. Total Cholesterol <200. HDL >45. Triglycerides <150. HgbA1C <7%. BMI <25 - Diabetes Do you monitor your blood sugar at home?: Yes - INSTRUCTED TO BEING GLUCMETER WITH HER TO CR Nutrition - 30-Day Assessment - Program Goals Nutrition Program Goals: LDL <70. Total Cholesterol <200. HDL >45. Triglycerides <150. HgbA1C <7%. BMI <25 - Visit Date of Eval: 04/28/18 - Stages of Change Stages of Change:: Action - Lipids Has the patient seen the dietitian?: No - Diabetes Diabetes:: No - Weight Management Weight:: 182 lb - Intervention Referral to dietitian:: No Referral to Diabetic Clinic:: No Will attend diet classes:: Yes - Education Attended class for:: Healthy eating Tobacco - Initial Assessment - Program Goals Tobacco Program Goals: Complete smoking cessation. Attend education classes. Improve Knowledge Test score - Learning Barriers Learning Barriers: Ready to Learn Tobacco - 30-Day Assessment - Program Goals Tobacco Program Goals: Complete smoking cessation. Attend education classes. Improve Knowledge Test score - Stage of Change Stages of Change:: Action - Learning Barriers Learning Barriers: Participates in education - Family Support Do you have family support?: Yes - Tobacco Use Tobacco Use: Non-smoker Do you use smokeless tobacco?: No - Intervention Smoking Cessation Referral:: No Education Schedule Given:: Yes - Education Attended class for:: Coronary artery disease, Risk factors, Sexuality, Medical compliance, Cardiac A&P, Angina signs & symptoms Psychosocial - Initial Assess - Target Goals Target Goals: Assess presence or absence of depression. Using a valid screening tool, maximizes coping skills. Positive support system - Psychosocial Test Tool Used:: HANDS Depression Questionnaire - Assistive Devices Fall Risk Assessed:: Yes Psychosocial - 30-Day Assess - Target Goals Target Goals: Assess presence or absence of depression. Using a valid screening tool, maximizes coping skills. Positive support system - Stages of Change Stages of Change:: Action - Psychosocial Test Tool Used:: HANDS Depression Questionnaire - Intervention PS - Interventions: Yes Attend Stress Management Classes, No Referral to Mental Health, No Referral to [facility] Case Management, No Referral to Physician, No Uses Stress Management Skills - Education Attended classes for:: Coping techniques, Signs & symptoms of depression, Stress management, Relaxation techniques - Patient/Program Goal Preventative Medication(s):: Aspirin, Clopidogrel, Statin/lipid - Assistive Devices Assistive Devices:: None Fall Risk Assessed:: Yes Patient Health Questionnaire 30-Day Re-eval Assessment 1. Little interest or pleasure in doing things: Not at all 2. Feeling down, depressed, or hopeless: Not at all 3. Trouble falling or staying asleep, or sleeping too much: Not at all 4. Feeling tired or having little energy: Not at all 5. Poor appetite or overeating: Not at all 6. Feeling bad about yourself -- or that you are a failure or have let yourself or your family down: Not at all 7. Trouble concentrating on things, such as reading the newspaper or watching television: Not at all 8. Moving or speaking so slowly that other people could have noticed. Or the opposite - being so fidgety or restless that you have been moving around a lot more than usual: Not at all 9. Thoughts that you would be better off , or of hurting yourself in some way: Not at all Total Score: 0 Self-Efficacy 30-Day Re-eval Assessment We would like to know how confident you are in doing certain activities. Please select your confidence level for:: Select your confidence level for the following using the scale 1-10 where 1 is not at all confident and 10 is totally confident. Your score is the average of all 6 responses. Fatigue: How confident are you that you can keep the fatigue caused by your disease from interfering with the things you want to do? Select Number: 10 Physical Discomfort or Pain: How confident are you that you can keep the physical discomfort or pain of your disease from interfering with the things you want to do? Select Number: 10 Emotional Distress: How confident are you that you can keep the emotional distress caused by your disease from interfering with the things you want to do? Select Number: 10 Other Symptoms or Health Problems: How confident are you that you can keep other symptoms or health problems from interfering with the things you want to do? Select Number: 10 Different Tasks and Activities: How confident are you that you can do the different tasks and activities needed to manage your health condition so as to reduce your need to see a doctor? Select Number: 10 Medication: How confident are you that you can do things other than just taking medication to reduce how much your illness affects your everyday life? Select Number: 10 Total Score:: 10
[2018-04-28 11:28] VITALS: BP 106/58; BP 164/70
--- OUTSIDE RECORDS SUMMARY | 2018-05-29 03:52 | XMS RPT_ITS ---
:1950 Author Organization OHIP Support Name Relationship Address Phone [facility] Unavailable [place] + [place] [address] CHATO OJEDA [address] + [place] [address] CELESTINE, AREN Unavailable Unavailable + [place] [facility] Unavailable [place] + [place] [address] CHATO OJEDA Unavailable [address] + [place] [address] CELESTINE, AREN Unavailable Unavailable + [place] [facility] Unavailable [place] + [place] [address] CHATO OJEDA Un[address] + [place] [address] CELESTINE, AREN Unavailable Unavailable + [place] [facility] Unavailable [place] + [place] [address] CHATO OJEDA Un[address] + [place] [address] CELESTINE, AREN Unavailable Unavailable + [place] [facility] Unavailable [place] + [place] [address] CHATO OJEDA Unavailable [address] + [place] [address] CELESTINE, AREN Unavailable Unavailable + [place] [facility] Unavailable [place] + [place] [address] CHATO OJEDA Unavailable [address] + [place] [address] CELESTINE AREN Unavailable . + [place] . [facility] Unavailable [place] + [place] [address] CHATO OJEDA Unavailable [address] + [place] [address] CELESTINE, AREN Unavailable Unavailable + [place] [facility] Unavailable [place] + [place] [address] CHATO OJEDA Unavailable [address] + [place] [address] CELESTINE, AREN Unavailable Unavailable + [place] [facility] Unavailable [place] + [place] [address] CHATO OJEDA Unavailable [address] + [place] [address] CELESTINE, AREN Unavailable Unavailable + [place] [facility] Unavailable [place] + [place] [address] CHATO OJEDA Unavailable [address] + [place] [address] CELESTINE, AREN Unavailable Unavailable + [place] [facility] Unavailable [place] + [place] [address] CHATO OJEDA Unavailable [address] + [place] [address] CELESTINE, AREN Unavailable . + [place] . [facility] Unavailable [place] + [place] [address] CHATO OJEDA Unavailable [address] + [place] [address] CELESTINE, AREN Unavailable Unavailable + [place] [facility] Unavailable [place] + [place] [address] CHATO OJEDA Unavailable [address] + [place] [address] CELESTINE, AREN Unavailable Unavailable + [place] [facility] Unavailable [place] + [place] [address] CHATO OJEDA Unavailable [address] + [place] [address] CELESTINE, AREN Unavailable Unavailable + [place] [facility] Unavailable [place] + [place] [address] CHATO OJEDA Unavailable [address] + [place] [address] CELESTINE, AREN Unavailable Unavailable + [place] [facility] Unavailable [place] + [place] [address] CHATO OJEDA Unavailable [address] + [place] [address] CELESTINE, AREN Unavailable Unavailable + [place] [facility] Unavailable [place] + [place] [address] CHATO OJEDA Unavailable [address] + [place] [address] CELESTINE AREN Unavailable . + ., [place] . [facility] Unavailable [place] + [place] [address] CHATO OJEDA Unavailable [address] + [place] [address] CELESTINE, AERN Unavailable . + ., [place] . [facility] Unavailable [place] + [place] [address] CHATO OJEDA Unavailable [address] + [place] [address] CELESTINE AREN Unavailable . + ., [place] . [facility] Unavailable [place] + [place] [address] CHATO OJEDA Unavailable [address] + [place] [address] CELESTINE, AREN Unavailable Unavailable + [facility] Unavailable [place] + [place] [address] OJEDACHATO Unavailable [address] + [place] [address] CELESTINE, AREN Unavailable Unavailable + [facility] Unavailable [place] + [place] [address] CHATO OJEDA Unavailable [address] + [place] [address] CELESTINE, AREN Unavailable . + ., [place] . [facility] Unavailable . + [place] [address] CHATO OJEDA Unavailable [address] + [place] [address] CELESTINE, AREN Unavailable . + ., [place] . [facility] Unavailable . + [place] [address] CHATO OJEDA Unavailable [address] + [place] [address] CELESTINE, AREN Unavailable . + ., [place] . [facility] Unavailable . + [place] [address] CHATO OJEDA Unavailable [address] + [place] [address] CELESTINE, AREN Unavailable . + ., [place] . [facility] Unavailable . + [place] [address] CHATO OJEDA Unavailable [address] + [place] [address] CELESTINE, AREN Unavailable [address] + [place], CHATO MCCLENDON Unavailable [address] + [place] [address] UE Unavailable Unavailable Unavailable CELESTINE, AREN Unavailable [address] + [place], [place] / CHATO OJEDA Unavailable [address] + [place] [address] UE Unavailable Unavailable Unavailable CELESTINE, AREN Unavailable [address] + [place], [place] / CHATO OJEDA Unavailable [address] + [place] [address] UE Unavailable Unavailable Unavailable CELESTINE, AREN Unavailable [address] + [place], [place] / CHATO OJEDA Unavailable [address] + [place] [address] UE Unavailable Unavailable Unavailable AREN SPRAGUE Unavailable [address] + [place], [place] / CHATO OJEDA Unavailable [address] + [place] [address] UE Unavailable Unavailable Unavailable AREN SPRAGUE Unavailable [address] + [place] / [facility] Unavailable [address] + [place] [address] CHATO OJEDA Unavailable [address] + [place] [address] AREN SPRAGUE Unavailable [address] + [place] / [facility] Unavailable [address] + [place] [address] CHATO OJEDA Unavailable [address] + [place] [address] CELESTINE AREN Unavailable [address] + [place] / [facility] Unavailable [address] + [place] [address] CHATO OJEDA Unavailable [address] + [place] [address] CELESTINE AREN Unavailable [address] + [place] / Care Team Providers Name Role Phone Winston Koch Attending Unavailable Ashelfgloria, Pavelasem Referring Unavailable Oleghe, Efewongbe Attending Unavailable Talampas, Kasie Referring Unavailable Genetas, Kasie Primary Care Unavailable Leanne Buenrostro Attending Unavailable Winston Koch Attending Unavailable Oleghe, Efewongbe Referring Unavailable Winston Koch Attending Unavailable Parker Meléndez Referring Unavailable Oleghe, Efewongbe Attending Unavailable Oleghe, Efewongbe Referring Unavailable Oleghe, Efewongbe Primary Care Unavailable Saul Nicole REGISTERED ASSOCIATE-C Attending Unavailable Oleghe, Efewongbe Referring Unavailable Oleghe, Efewongbe Primary Care Unavailable Luis Miguel Pham Attending Unavailable Saul Nicole REGISTERED ASSOCIATE-C Attending Unavailable Oleghe, Efewongbe Referring Unavailable Oleghe, Efewongbe Primary Care Unavailable Zee Montiel REGISTERED ASSOCIATE-C Attending Unavailable Oleghe, Efewongbe Referring Unavailable Oleghe, Efewongbe Primary Care Unavailable Saul Nicole REGISTERED ASSOCIATE-C Attending Unavailable Oleghe, Efewongbe Referring Unavailable Oleghe, Efewongbe Primary Care Unavailable Saul Nicole REGISTERED ASSOCIATE-C Attending Unavailable Oleghe, Efewongbe Primary Care Unavailable Prasad Rowlandma Attending Unavailable Marthalanki, Yee Referring Unavailable Oleghe, Efewongbe Primary Care Unavailable Zee Montiel REGISTERED ASSOCIATE-C Consulting Unavailable Oleghe, Efewongbe Attending Unavailable Oleghe, Efewongbe Referring Unavailable Oleghe, Efewongbe Primary Care Unavailable Oleghe, Efewongbe Attending Unavailable Oleghe, Efewongbe Referring Unavailable Oleghe, Efewongbe Primary Care Unavailable Alex Gotha Attending Unavailable Oleghe, Efewongbe Referring Unavailable Oleghe, Efewongbe Primary Care Unavailable Alex, Gotha Attending Unavailable Alex, Gotha Referring Unavailable Oleghe, Efewongbe Primary Care Unavailable Marthalanki, Yee Attending Unavailable Vellanki, Yee Referring Unavailable Oleghe, Efewongbe Primary Care Unavailable Oleghe, Efewongbe Attending Unavailable Oleghe, Efewongbe Referring Unavailable Alex, Winston Attending Unavailable Oleghe, Efewongbe Attending Unavailable Oleghe, Efewongbe Referring Unavailable Oleghe, Efewongbe Attending Unavailable Oleghe, Efewongbe Referring Unavailable Oleghe, Efewongbe Primary Care Unavailable Oleghe, Efewongbe Attending Unavailable Oleghe, Efewongbe Referring Unavailable Oleghe, Efewongbe Primary Care Unavailable Oleghe, Efewongbe Primary Care Unavailable Parker Meléndez Admitting Unavailable Daya Mobley Consulting Unavailable Dennys Lovett Attending Unavailable Parker Meléndez Admitting Unavailable Parker Meléndez Attending Unavailable Oleghe, Efewongbe Primary Care Unavailable Parker Meléndez Consulting Unavailable Agyepong, Parker Admitting Unavailable Itz, Daya Attending Unavailable Oleghe, Efewongbe Primary Care Unavailable Itz, Daya Consulting Unavailable Ashelfah, Ghasem Consulting Unavailable Agyepong, Parker Admitting Unavailable Oleghe, Efewongbe Primary Care Unavailable Itz, Daya Consulting Unavailable Ashelfah, Ghasem Attending Unavailable Ashelfah, Ghasem Consulting Unavailable Agyepong, Parker Admitting Unavailable Oleghe, Efewongbe Primary Care Unavailable Itz, Daya Consulting Unavailable Bony, Dennys Attending Unavailable Bony, Dennys Consulting Unavailable Agyepong, Parker Admitting Unavailable Alex, Gotha Attending Unavailable Oleghe, Efewongbe Primary Care Unavailable Itz, Daya Consulting Unavailable Bony, Dennys Consulting Unavailable Agyepong, Parker Admitting Unavailable Bony, Dennys Attending Unavailable Oleghe, Efewongbe Primary Care Unavailable Itz, Daya Consulting Unavailable Bony, Dennys Consulting Unavailable Oleghe, Efewongbe Attending Unavailable Oleghe, Efewongbe Referring Unavailable Alex, Winston Attending Unavailable Alex, Winston Referring Unavailable Oleghe, Efewongbe Primary Care Unavailable Alex, Winston Attending Unavailable Alex, Gotha Referring Unavailable Oleghe, Efewongbe Primary Care Unavailable Oleghe, Efewongbe Attending Unavailable Oleghe, Efewongbe Referring Unavailable Oleghe, Efewongbe Primary Care Unavailable KIM, GLEN (ENERGY OPERATIONS VICE PRESIDENT) Referring Unavailable KIM, GLEN (ENERGY OPERATIONS VICE PRESIDENT) Referring Unavailable JOSSUE FINLEY Referring Unavailable JOSSUE [...] SOURCE Unknown Z95.5 - Presence of Alex, Gotha Active [place] [facility] coronary angioplasty Community implant and graft / Hospital Z95.5(ICD-10) Repository Unknown I50.32 - Chronic Alex, Winston Active [place] 8 diastolic (congestive) Community heart failure / Hospital I50.32(ICD-10) Repository Unknown I10 - Essential (primary) Alex, Gotha Active [place] 8 hypertension / Community I10(ICD-10) Hospital Repository Unknown E78.5 - Hyperlipidemia, Alex, Gotha Active [place] [facility] unspecified / Community E78.5(ICD-10) Hospital Repository Unknown I25.10 - Atherosclerotic Alex, Gotha Active [place] [facility] heart disease of [place] Community coronary artery without Hospital angina pectoris / Repository I25.10(ICD-10) Unknown E78.00 - Pure Alex, Winston Active [place] [facility] hypercholesterolemia, Community unspecified / Hospital E78.00(ICD-10) Repository Unknown E11.9 - Type 2 diabetes Oleghe, Active [place] [facility] mellitus without [place] Community complications / Hospital E11.9(ICD-10) Repository Unknown E66.9 - Obesity, Oleghe, Active [place] 8 unspecified / [place] Community E66.9(ICD-10) Hospital Repository Unknown R07.9 - Chest pain, Alex, Winston Active [place] 8 unspecified / Community R07.9(ICD-10) Hospital Repository Unknown R94.31 - Abnormal Winston Koch Active [place] 8 electrocardiogram [ECG] Community [EKG] / R94.31(ICD-10) Hospital Repository Unknown I24.9 - Acute ischemic AlexWinston cooley Active [place] 8 heart disease, Community unspecified / Hospital I24.9(ICD-10) Repository Unknown I25.110 - Atherosclerotic Winston Koch Active [place] 8 heart disease of [place] Community coronary artery with Hospital unstable angina pectoris Repository / I25.110(ICD-10) Active Achilles tendinitis, NA Active [facility] right leg / Clinic Main M76.61(ICD-10) [place] Repository Active Pain, unspecified / NA Active [place] R52(ICD-10) Clinic Main [place] Repository Active Calcaneal spur, right NA Active [place] [facility] foot / M77.31(ICD-10) Clinic Main [place] Repository Active Calcaneal spur, left foot NA Active [place] [facility] / M77.32(ICD-10) Clinic Main [place] Repository Admitting Unknown / UNK(Unknown) NAJMA Active [facility] 8 diagnosis [facility] Repository Unknown Z78.0 - Asymptomatic Olepavele, Active [place] [facility] menopausal state / [place] Community Z78.0(ICD-10) Hospital Repository Active Juvenile osteochondrosis JENELLE, 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, right ankle / (PT) Clinic Main M92.61(ICD-10) [place] Repository Active Other specified symptoms NA Active [facility] and signs involving the Clinic Main circulatory and [place] respiratory systems / Repository R09.89(ICD-10) Unknown G40.909 - Epilepsy, Vellanki, Active [place] 8 unspecified, not [place] Community intractable, without Hospital status epilepticus / Repository G40.909(ICD-10) Unknown M06.4 - Inflammatory Vellanki, 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 / [facility] Community M06.4(ICD-10) Hospital Repository Unknown K21.9 - Gastro-esophageal Vellanki, Active [place] [facility] reflux disease without [facility] esophagitis / Hospital K21.9(ICD-10) Repository Unknown R06.09 - Other forms of Alex, Gotha Active [place] 8 dyspnea / R06.09(ICD-10) [facility] Hospital Repository Active Unknown / UNK(Unknown) NA Active [place] 8 Clinic Main [place] Repository Unknown E78.0 - Pure Alex, Winston Active [place] 8 hypercholesterolemia / Community E78.0(ICD-10) Hospital Repository Unknown E55.9 - Vitamin D Oleghe, Active [place] [facility] deficiency, unspecified / [place] Community E55.9(ICD-10) Hospital Repository Unknown G47.33 - Obstructive Vellanki, Active [place] 8 sleep apnea (adult) [facility] (pediatric) / Hospital G47.33(ICD-10) Repository Unknown I50.9 - Heart failure, Vellanki, Active [place] unspecified / [facility] I50.9(ICD-10) Hospital Repository Unknown R30.0 - Dysuria / Nicole Saul Active [place] 8 R30.0(ICD-10) REGISTERED ASSOCIATE-C [facility] Hospital Repository Unknown N39.0 - Urinary tract Nicole, Saul Active [place] 8 infection, site not -[facility] specified / N39.0(ICD-10) Hospital Repository Active Atherosclerotic heart NA Active [place] 8 disease of [place] Clinic Main coronary artery without [place] angina pectoris / Repository I25.10(ICD-10) Active Hyperlipidemia, NA Active [facility] unspecified / Clinic Main E78.5(ICD-10) [place] Repository Active Encounter for screening NA Active [facility] mammogram for malignant Clinic Main neoplasm of breast / [place] Z12.31(ICD-10) Repository Unknown 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 [place] 8 thyroid nodule / J -[facility] E04.1(ICD-10) Hospital Repository Unknown E07.9 - Disorder of Zee Montiel Active [place] 8 thyroid, unspecified / J REGISTERED ASSOCIATE-C [facility] E07.9(ICD-10) Hospital Repository Unknown M06.9 - Rheumatoid Jose, Active [place] 8 arthritis, unspecified / [place] [facility] M06.9(ICD-10) Hospital Repository PROCEDURES PROCEDURES No Procedure Records FoundRESULTS RESULTS CARDIOLOGY VISIT Observed: 04/16/2018 Status: F Source: [place] REPORT 8:55 AM [facility] REPOSITORY [facility] [address] [place] [address] OFFICE VISIT Date of Service: 04/16/18 MR#: [id number] Acct: [id number] Name: LACY ALVARADO Rep #: [id number] : 1950 Provider: Winston Koch MD Age/Sex: 67/F Location: [facility] Status: Signed HPI HPI Chief Complaint: Follow-up [...] (Chronic) Hyperlipidemia (Chronic) Atherosclerotic heart disease of [place] coronary artery without angina pectoris (Chronic) Conversion [...] AND Plan 1. 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) Coding Level of Care Code Off vis,est,level 4 Diagnoses Atherosclerotic heart disease of [place] coronary artery without angina pectoris I25.10 Essential (primary) hypertension I10 Pure hypercholesterolemia E78.00 Hyperlipidemia type: pure hypercholesterolemia Coding Level of Care Code Off vis,est,level 4 Diagnoses Atherosclerotic heart disease of [place] coronary artery without angina pectoris I25.10 Essential (primary) hypertension I10 Pure hypercholesterolemia E78.00 Hyperlipidemia type: pure hypercholesterolemia 04/16/18 0855 <Electronically signed by Winston Koch MD> Date Winston Koch MD Cosigner Signature: Date (if applicable) CC: Mayda Garcia MD HEMOGLOBIN A1C Collected: 04/12/2018 Status: F Source: [place] 7:35 AM [facility] REPOSITORY TYPE CODE TESTS RESULT OUT OF RANGE REFERENCE UNITS LAB L501.9985 4.2-6.3 % High HGB A1C 7.7 Performed By: #### L501.9985 #### [place] [facility] [address] [place], [address] 12 LEAD ELECTROCARDIOGRAM Observed: 04/02/2018 Status: F Source: [place] 9:19 AM [facility] REPOSITORY [facility] Cardiovascular Services [address] [place] [address] 12 Lead EKG 03/23/18 0428 MR#: [id number] Acct: [id number] Name: LACY ALVARADO Rep #: [id number] : 1950 67 From: Winston Koch MD [...] UNCONFIRMED Confirmed by WINSTON KOCH MD ([id number]), managing editor NITISH CLARKE (56) on 03/26/2018 2:03:45 PM Referred By: BONY Confirmed By:WINSTON KOCH MD 03/26/18 1403 Date Winston Koch MD CC: Mikey Reynaga MD; Mayda Garcia MD; Dennys Lovett MD Signed 12 LEAD ELECTROCARDIOGRAM Observed: 04/02/2018 Status: F Source: [place] 9:19 AM [facility] REPOSITORY [facility] Cardiovascular Services [address] [place] [address] 12 Lead EKG 03/22/18 0926 MR#: [id number] Acct: [id number] Name: LACY ALVARADO Rep #: [id number] : 1950 67 From: Winston Koch MD [...] IS UNCONFIRMED Confirmed by WINSTON KOCH MD ([id number]), managing editor NITISH CLARKE (56) on 03/26/2018 2:05:22 PM Referred By: ARA Confirmed By:WINSTON KOCH MD 03/26/18 1405 Date Winston Koch MD CC: Mikey Reynaga MD; Mayda Garcia MD; Dennys Lovett MD Signed 12 LEAD ELECTROCARDIOGRAM Observed: 04/02/2018 Status: F Source: [place] 9:18 AM [facility] REPOSITORY [facility] Cardiovascular Services [address] [place] [address] 12 Lead EKG 03/22/18 0541 MR#: [id number] Acct: [id number] Name: LACY ALVARADO Rep #: [id number] : 1950 67 From: Winston Koch MD [...] IS UNCONFIRMED Confirmed by WINSTON KOCH MD ([id number]), managing editor NITISH CLARKE (56) on 03/26/2018 1:55:43 PM Referred By: KAN Confirmed By:WINSTON KOCH MD 03/26/18 9605 Date Winston Koch MD CC: Daya Mobley MD; Mayda Garcia MD; Dennys Lovett MD Signed 12 LEAD ELECTROCARDIOGRAM Observed: 04/02/2018 Status: F Source: [place] 9:18 AM [facility] REPOSITORY [facility] Cardiovascular Services [address] [place] [address] [place] [address] 12 Lead EKG 03/21/18612 MR#: [id number] Acct: [id number] Name: LACY ALVARADO Rep #: [id number] : 1950 67 From: Winston Koch MD [...] UNCONFIRMED Confirmed by WINSTON KOCH MD ([id number]), managing editor NITISH CLARKE (56) on 03/26/2018 1:58:00 PM Referred By: DR CANALES Confirmed By:WINSTON KOCH MD 03/26/18 7121 Date Winston Koch MD CC: Mayda Garcia MD; Parker Meléndez MD; Dennys Lovett MD Signed 12 LEAD ELECTROCARDIOGRAM Observed: 04/02/2018 Status: F Source: [place] 9:18 AM [facility] REPOSITORY [facility] Cardiovascular Services [address] [place] [address] 12 Lead EKG 03/20/18 2200 MR#: [id number] Acct: [id number] Name: LACY ALVARADO Rep #: [id number] : 1950 67 From: Winston Koch MD [...] found Confirmed by WINSTON KOCH MD ([id number]), managing editor NITISH CLARKE (56) on 03/26/2018 1:59:42 PM Referred By: DR CANALES Confirmed By:WINSTON KOCH MD 03/26/18 135 Date Winston Koch MD CC: Mayda Garcia MD; Parker Meléndez MD; Dennys Lovett MD Signed 12 LEAD ELECTROCARDIOGRAM Observed: 04/02/2018 Status: F Source: [place] 9:14 AM [facility] REPOSITORY [facility] Cardiovascular Services [address] [place] [address] 12 Lead EKG 03/20/18 1839 MR#: [id number] Acct: [id number] Name: LACY ALVARADO Rep #: [id number] : 1950 67 From: Winston Koch MD [...] Borderline ECG Confirmed by WINSTON KOCH MD ([id number]), managing editor NITISH CLARKE (56) on 03/24/2018 11:56:55 AM Referred By: DC Confirmed By:WINSTON KOCH MD 03/24/181155 Date Winston Koch MD CC: Mayda Garcia MD; Dennys Lovett MD; Ulisses Chan Signed 12 LEAD ELECTROCARDIOGRAM Observed: 04/02/2018 Status: F Source: [place] 9:14 AM [facility] Cardiovascular Services [address] [place] [address] 12 Lead EKG 03/20/181936 MR#: [id number] Acct: [id number] Name: LACY ALVARADO Rep #: [id number] : 1950 67 From: Winston Koch MD [...] Normal ECG Confirmed by WINSTON KOCH MD ([id number]), managing editor NITISH CLARKE (56) on 03/24/2018 11:57:12 AM Referred By: TL Confirmed By:WINSTON KOCH MD 03/24/18 2603 Date Winston Koch MD CC: Mayda Garcia MD; Dennys Lovett MD; Ulisses Chan Signed CR - HISTORY AND Observed: 03/30/2018 Status: F Source: [place] PHYSICAL 2:20 PM [facility] REPOSITORY [facility] Cardiac Rehab [address] [place] [address] CR - History AND Physical MR#: [id number] Acct: [id number] Name: LACY ALVARADO Rep #: [id number] : 1950 67 From: Pelon Mallory MEDICAL EDUCATION MANAGER, LEGAL SUPPORT SPECIALIST, BS PCP: Mayda Garcia MD DOS: 03/30/18 [...] MONITORED. Interventions with present event:: ADMIT TO [facility] AND TAKEN TO BUS VAN DRIVER FOR CATH AND STENT. Were there any [...] Advanced Directives - Advanced Directives Power of Land Surveying Manager: Yes - ATTEMPT TO REVIVE, BUT NO PENITENTIARY LIFE SUPPORT OR CARE Living Will: Yes Advance Directives Information Provided: No Advance Directives on File: Yes DNR Order?:: Yes - MOLST See MOLST form: No Past Medical History - Past Medical Illness Medical History: Past Medical History (Last Updated 03/30/18 @ 10:12 by Pelon Mallory, MEDICAL EDUCATION MANAGER, LEGAL SUPPORT SPECIALIST, BS) Atherosclerotic heart disease of [place] coronary artery without angina pectoris (Chronic) I25.10 RIGHT FOOT HEEL SPUR Arthritis M19.90 Diabetes type 2, controlled E11.9 H/O: hysterectomy Z98.890, Z90.710 Heart disease I51.9 High cholesterol E78.00 Hives L50.9 Rheumatoid arthritis M06.9 Seasonal allergies J30.2 Seizures R56.9 HTN (hypertension) I10 - Past Surgical History Surgical History: Past Surgical History (Last Updated 03/22/18 @ 18:17 by Lily Valles) Stented coronary artery (Chronic) Onset Date: [...] 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 Recreational Activities: I am able to [...] = Denies (Slash). Left click = Reports ([place]) Review of Present Symptoms: Reports: Shortness of [...] F Source: [place] OFFICE VISIT 4:41 PM [facility] Internal Medicine [address] [place] [address] OFFICE VISIT Date of Service: 03/29/18 MR#: [id number] Acct: [id number] Name: LACY ALVARADO Rep #: [id number] : 1950 Provider: Mayda Garcia MD Age/Sex: [...] PFSH Medical History Atherosclerotic heart disease of [place] coronary artery without angina pectoris (Chronic) Arthritis [...] itchy eyes, hives or seasonal allergy symptoms Rtue/Lymp Hematologic/Lymphatic: No easy bleeding, easy bruising or [...] of Hysterectomy. This note was generated with NovaPlanner dictation software. It may contain incorrect words, [...] Mayda Garcia MD> Date Mayda Garcia MD [facility] Signature: Date (if applicable) CC: DISCHARGE SUMMARY Observed: 03/23/2018 Status: F Source: [place] 4:31 PM [facility] REPOSITORY [facility] Medical Records Department [address] [place] [address] Discharge Summary 03/23/18 0832 MR#: [id number] Acct: [id number] Name: LACY ALVARADO Rep #: [id number] : 1950 67 From: Dennys Lovett MD PCP: Mayda Garcia MD Status: DIS IN Y Location: ICU [id number] Discharge Date and Diagnosis Date of Admission: 03/20/18 Date of Discharge: 03/23/18 - Primary Discharge Diagnosis Active and Suspected Problems (Last Updated 03/22/18 @ 18:14 by Lily Valles) Chest pain (Acute) Unstable angina with acute coronary syndrome with coronary artery atherosclerosis/stenosis status post PCI - Secondary Discharge Diagnosis Chronic Problems (Last Updated 03/22/18 @ 18:14 by Lliy Valles) Atherosclerotic heart disease of [place] coronary artery without angina pectoris (Chronic) Stented [...] applicable Code Visit Inpatient E AND M: 14860 Disch Hosp 03/23/18 1631 <Electronically signed by Dennys Lovett MD> Date Dennys Lovett MD Cosigner Signature (if applicable): Date CC: Mayda Garcia MD; Dennys Lovett MD Signed DISCHARGE INSTRUCTION Observed: 03/23/2018 Status: F Source: [place] 8:14 AM [facility] REPOSITORY [facility] Medical Records Department [address] [place] [address] Instructions for Home/Discharge Instructions 03/23/18 0813 MR#: [id number] Acct: [id number] Name: LACY ALVARADO Rep #: [id number] : 1950 67 From: Dennys Lovett MD [...] 03/23/2018 Status: F Source: [place] 7:57 AM [facility] REPOSITORY TYPE CODE TESTS RESULT OUT OF RANGE REFERENCE UNITS LAB L501.080 70-110 mg/dL Normal BEDSIDE GLU 92 Result Comment: MANAGEMENT OF PATIENT CARE PER NURSING PROTOCOL Performed By: #### L501.080 #### [facility] Laboratory Point of Care [address] [place], [place] [id number] BEDSIDE GLUCOSE Collected: 03/23/2018 Status: F Source: [place] 6:46 AM [facility] REPOSITORY TYPE CODE TESTS RESULT OUT OF RANGE REFERENCE UNITS LAB L501.080 70-110 mg/dL Normal BEDSIDE GLU 94 Result Comment: MANAGEMENT OF PATIENT CARE PER NURSING PROTOCOL Performed By: #### L501.080 #### [facility] Point of Care [address] [place] [address] CBC-COMPLETE BLOOD CNT Collected: 03/23/2018 Status: F Source: [place] NO DIFF 4:08 AM [facility] REPOSITORY TYPE CODE TESTS RESULT OUT OF [...] MPV 10.3 Performed By: #### L100.0500 #### [facility] [address] [place], [address] BASIC METABOLIC Collected: 03/23/2018 Status: F Source: [place] PROFILE (BMP) 4:08 AM [facility] REPOSITORY TYPE CODE TESTS RESULT OUT OF [...] GAP 10 Performed By: #### L500.2500 #### [facility] [address] [place], [address] BEDSIDE GLUCOSE Collected: 03/22/2018 Status: F Source: [place] 9:34 PM [facility] REPOSITORY TYPE CODE TESTS RESULT OUT OF REFERENCE UNITS RANGE LAB L501.080 70-110 mg/dL High BEDSIDE GLU 119 Result Comment: MANAGEMENT OF PATIENT CARE PER NURSING PROTOCOL Performed By: #### L501.080 #### [facility] Point of Care [address] [place] [address] BEDSIDE GLUCOSE Collected: 03/22/2018 Status: F Source: [place] 4:55 PM [facility] REPOSITORY TYPE CODE TESTS RESULT OUT OF RANGE REFERENCE UNITS LAB L501.080 70-110 mg/dL Normal BEDSIDE GLU 105 Result Comment: MANAGEMENT OF PATIENT CARE PER NURSING PROTOCOL Performed By: #### L501.080 #### [facility] Point of Care [address] [place] [address] BEDSIDE GLUCOSE Collected: 03/22/2018 Status: F Source: [place] 1:32 PM [facility] REPOSITORY TYPE CODE TESTS RESULT OUT OF REFERENCE UNITS RANGE LAB L501.080 70-110 mg/dL Low BEDSIDE GLU 68 Result Comment: MANAGEMENT OF PATIENT CARE PER NURSING PROTOCOL Performed By: #### L501.080 #### [facility] Point of Care [address] [place] [address] ACT ACTIVATED CLOTTING Collected: 03/22/2018 Status: F Source: [place] TIME 11:00 AM [facility] REPOSITORY TYPE CODE TESTS RESULT OUT OF RANGE REFERENCE UNITS LAB L9100.0100 74-137 sec High ACTk CLOT 147 TIME Performed By: #### L9100.0100 #### [facility] Point of Care [address] [place] [address] ACT ACTIVATED CLOTTING Collected: 03/22/2018 Status: F Source: [place] TIME 8:54 AM [facility] REPOSITORY TYPE CODE TESTS RESULT OUT OF RANGE REFERENCE UNITS LAB L9100.0100 74-137 sec High ACTk CLOT 208 TIME Performed By: #### L9100.0100 #### [facility] Point of Care [address] [place] [address] BEDSIDE GLUCOSE Collected: 03/22/2018 Status: F Source: [place] 6:56 AM [facility] REPOSITORY TYPE CODE TESTS RESULT OUT OF REFERENCE UNITS RANGE LAB L501.080 70-110 mg/dL High BEDSIDE GLU 141 Result Comment: MANAGEMENT OF PATIENT CARE PER NURSING PROTOCOL Performed By: #### L501.080 #### [facility] Point of Care [address] [place] [address] CBC W/DIFF, AUTOMATED Collected: 03/22/2018 Status: F Source: [place] 5:58 AM [facility] REPOSITORY TYPE CODE TESTS RESULT OUT OF [...] Lymph 1.62 Performed By: #### L100.0100 #### [facility] [address] [place], [address] BASIC METABOLIC Collected: 03/22/2018 Status: F Source: [place] PROFILE ([facility]) 5:58 AM [facility] REPOSITORY TYPE CODE TESTS RESULT OUT OF [...] GAP 9 Performed By: #### L500.2500 #### [facility] [address] [place], [address] PROTHROMBIN TIME W/INR Collected: 03/22/2018 Status: F Source: [place] 5:58 AM [facility] REPOSITORY TYPE CODE TESTS RESULT OUT OF RANGE REFERENCE UNITS LAB L300.4150 11.7-14.9 SECONDS Normal PROTIME 14.1 LAB L300.4200 Normal INR 1.1 Performed By: #### L300.3900, L300.4310 #### [facility] [address] [place], [address] PARTIAL THROMBOPLAST Collected: 03/22/2018 Status: F Source: [place] TIME 5:58 AM [facility] REPOSITORY TYPE CODE TESTS RESULT OUT OF RANGE REFERENCE UNITS LAB L300.4310 24.1-36.2 Seconds Normal PTT 34.1 Performed By: #### L300.3900, L300.4310 #### [facility] [address] [place], [address] BEDSIDE GLUCOSE Collected: 03/21/2018 Status: F Source: [place] 9:03 PM [facility] REPOSITORY TYPE CODE TESTS RESULT OUT OF REFERENCE UNITS RANGE LAB L501.080 70-110 mg/dL High BEDSIDE GLU 147 Result Comment: MANAGEMENT OF PATIENT CARE PER NURSING PROTOCOL Performed By: #### L501.080 #### [facility] Point of Care [address] [place] [address] BEDSIDE GLUCOSE Collected: 03/21/2018 Status: F Source: [place] 4:01 PM [facility] REPOSITORY TYPE CODE TESTS RESULT OUT OF REFERENCE UNITS RANGE LAB L501.080 70-110 mg/dL High BEDSIDE GLU 173 Result Comment: MANAGEMENT OF PATIENT CARE PER NURSING PROTOCOL Performed By: #### L501.080 #### [facility] Point of Care [address] [place] [address] CONSULTATION Observed: 03/21/2018 Status: F Source: [place] 12:47 PM [facility] REPOSITORY [facility] Medical Records Department [address] [place] [address] Consultation 03/21/18 1239 MR#: [id number] Acct: [id number] Name: LACY ALVARADO Rep #: [id number] : 1950 67 From: Daya Mobley MD PCP: Mayda Garcia MD Status: ADM DELFIN Y Location: [place] [address] Problem List (1) Chest pain Status: Acute [...] 46.2 L, Lymph % (Auto) 45.7 H, [place] % (Auto) 5.1, Eos % (Auto) 2.6, [...] Clarity Clear, Urine pH 7.0, Ur Specific [place] 1.010, Urine Protein 15 H, Urine Glucose [...] 42.7 L, Lymph % (Auto) 47.5 H, [place] % (Auto) 6.2, Eos % (Auto) 3.2, [...] 03/21/2018 Status: F Source: [place] 11:51 AM [facility] REPOSITORY TYPE CODE TESTS RESULT OUT OF REFERENCE UNITS RANGE LAB L501.080 70-110 mg/dL High BEDSIDE GLU 118 Result Comment: MANAGEMENT OF PATIENT CARE PER NURSING PROTOCOL Performed By: #### L501.080 #### [facility] Point of Care [address] [place] [address] PROTHROMBIN TIME W/INR Collected: 03/21/2018 Status: F Source: [place] 6:07 AM [facility] REPOSITORY TYPE CODE TESTS RESULT OUT OF RANGE REFERENCE UNITS LAB L300.4150 11.7-14.9 SECONDS Normal PROTIME 14.5 LAB L300.4200 Normal INR 1.1 Performed By: #### L300.3900, L300.4310 #### [facility] [address] [place], [place], [address] PARTIAL THROMBOPLAST Collected: 03/21/2018 Status: F Source: [place] TIME 6:07 AM [facility] REPOSITORY TYPE CODE TESTS RESULT OUT OF REFERENCE UNITS RANGE LAB L300.4310 24.1-36.2 Seconds High PTT 37.6 Performed By: #### L300.3900, L300.4310 #### [facility] [address] [place], [place], [address] CBC W/DIFF, AUTOMATED Collected: 03/21/2018 Status: F Source: [place] 6:07 AM [facility] REPOSITORY TYPE CODE TESTS RESULT OUT OF [...] Lymph 2.23 Performed By: #### L100.0100 #### [facility] [address] [facility] [place], [place], [address] BASIC METABOLIC Collected: 03/21/2018 Status: F Source: [place] PROFILE (BMP) 6:07 AM [facility] REPOSITORY TYPE CODE TESTS RESULT OUT OF [...] 10 Performed By: #### L500.2500, L500.4100 #### [facility] [address] [facility] [place], [address] LIPID PROFILE Collected: 03/21/2018 Status: F Source: [place] 6:07 AM [facility] REPOSITORY TYPE CODE TESTS RESULT OUT OF [...] 23 Performed By: #### L500.2500, L500.4100 #### [facility] [address] [place], [address] BEDSIDE GLUCOSE Collected: 03/21/2018 Status: F Source: [place] 6:01 AM [facility] REPOSITORY TYPE CODE TESTS RESULT OUT OF REFERENCE UNITS RANGE LAB L501.080 70-110 mg/dL High BEDSIDE GLU 128 Result Comment: MANAGEMENT OF PATIENT CARE PER NURSING PROTOCOL Performed By: #### L501.080 #### [facility] Point of Care [address] [place] [address] HISTORY AND PHYSICAL Observed: 03/21/2018 Status: F Source: [place] EXAM 1:44 AM [facility] REPOSITORY [facility] Medical Records Department [address] [facility] [place] [address] History and Physical 03/20/182109 MR#: [id number] Acct: [id number] Name: LCAY ALVARADO Rep #: [id number] : 1950 67 From: Parker Meléndez MD PCP: Mayda Garcia MD Status: ADM DELFIN Y [facility] Problem List (1) Chest pain Status: Acute [...] angina. Code Visit OBSV E AND M: 34731 Initial observation care L3 03/21/18 0144 <Electronically signed by Parker Meléndez MD> Date Parker Meléndez MD Cosigner Signature: Date (if applicable) CC: Mayda Garcia MD; Parker Meléndez MD Signed TROPONIN-I Collected: 03/21/2018 Status: F Source: [place] 12:37 AM [facility] REPOSITORY Order Comment: 'TROP' Serial specimen #1, #2 or #3: 3 TYPE CODE TESTS RESULT OUT OF RANGE REFERENCE UNITS LAB L501.4010 <0.045 ng/mL Normal < 0.015 TROPONIN-I Result Comment: TROPONIN-I EXPECTED VALUES <0.045 Negative 0.045 - 0.590 Consistent with Cardiac Damage > OR = 0.600 Critical Value Not every elevated troponin is indicative of [place]. These values should be used with clinical judgement in examining the patient's clinical picture for diagnosis. To establish a diagnosis of [place] versus myocardial injury, there must be a demonstrated rise and/or fall in the troponin values, in addition to ischemic symptoms, EKG changes, new regional wall motion abnormality, and/or angiographical evidence. PLEASE NOTE: REFERENCE RANGES EDITED 17 Performed By: #### L501.4010 #### [facility] [address] [place], [address] URINALYSIS, ROUTINE Collected: 03/21/2018 Status: F Source: [place] (DIPSTICK) 12:14 AM [facility] REPOSITORY Order Comment: How was Urine Obtained? [...] ESTERASE 500 Performed By: #### L400.2010 #### [facility] [address] [place], [address] BEDSIDE GLUCOSE Collected: 03/20/2018 Status: F Source: [place] 10:56 PM [facility] REPOSITORY TYPE CODE TESTS RESULT OUT OF REFERENCE UNITS RANGE LAB L501.080 70-110 mg/dL High BEDSIDE GLU 116 Result Comment: MANAGEMENT OF PATIENT CARE PER NURSING PROTOCOL Performed By: #### L501.080 #### [facility] Point of Care [address] [place], [place] [address] TROPONIN-I Collected: 03/20/2018 Status: F Source: [place] 10:12 PM [facility] REPOSITORY Order Comment: 'TROP' Serial specimen #1, #2 or #3: 2 TYPE CODE TESTS RESULT OUT OF RANGE REFERENCE UNITS LAB L501.4010 <0.045 ng/mL Normal < 0.015 TROPONIN-I Result Comment: TROPONIN-I EXPECTED VALUES <0.045 Negative 0.045 - 0.590 Consistent with Cardiac Damage > OR = 0.600 Critical Value Not every elevated troponin is indicative of [place]. These values should be used with clinical judgement in examining the patient's clinical picture for diagnosis. To establish a diagnosis of [place] versus myocardial injury, there must be a demonstrated rise and/or fall in the troponin values, in addition to ischemic symptoms, EKG changes, new regional wall motion abnormality, and/or angiographical evidence. PLEASE NOTE: REFERENCE RANGES EDITED 17 Performed By: #### L501.4010 #### [facility] [address] [place], [address] EMERGENCY DEPARTMENT Observed: 03/20/2018 Status: F Source: [place] SUMMARY 9:19 PM [facility] REPOSITORY [facility] Medical Records Department [address] [place] [address] Emergency Department Summary 03/20/18 1847 MR#: [id number] Acct: [id number] Name: LACY ALVARADO Rep #: [id number] : 1950 67 From: Ulisses Alvarez PCP: [...] history of congestive heart failure however no [place] history. Currently see a new 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 No aspirin taken at home. Physical Examination: [...] Heart scores of 4. I discussed with knitting machine operator automatic Dr. Mobley will add Lovenox. Will admit for cardiac rule out. Spoke with hospitalist Dr. Meléndez for admission to stepdown. Treatment Plan: [] Disposition: Admission Impression: 1. Acute chest pain 2. acute coronary syndrome This note was generated with NovaPlanner dictation software. It may contain incorrect words, spelling, and punctuation that were not noted in review of the chart prior to signing ED Disposition - Plan for ED Patient: Disposition: Acute Care Hospital [facility] Chief Complaint: Chest Pain Diagnosis: Chest pain Referrals: Mayda Garcia MD [Primary Care Provider] - What to do if you have Problems For any increased pain, shortness of breath, bleeding, nausea or vomiting, chest pain, or any unexpected problems, contact your Primary Care Provider. Call [facility] ([phone]) or report to the closest Emergency Room. Call 911 if necessary. 03/20/182118 <Electronically signed by Ulisses Alvarze> Date Ulisses Alvarez Cosigner Signature (If Indicated): Date CC: Mayda Garcia MD CHEST 1 VIEW Observed: 03/20/2018 Status: F Source: [place] (PORTABLE) 7:35 PM [facility] REPOSITORY [facility] Imaging Services [address] [place] [address] Chest 1 View (Portable) MR#: [id number] Acct: [id number] Name: LACY ALVARADO Rep #: [id number] : 1950 F 67 From: Janeth Forman MD PCP: Mayda Garcia MD Status: REG ER Study: Chest 1 View (Portable) Date of Exam: 03/20/18 Exam# [id number] Ordering Dr: Ulisses Chan DO STUDY: X-RAY [...] , CC: Mayda Garcia MD; Ulisses Chan Entry Level Buyer: Signed CBC W/DIFF, AUTOMATED Collected: 03/20/2018 Status: F Source: [place] 6:43 PM [facility] REPOSITORY TYPE CODE TESTS RESULT OUT OF [...] Lymph 2.51 Performed By: #### L100.0100 #### [facility] [address] [place], [place], [address] PROTHROMBIN TIME W/INR Collected: 03/20/2018 Status: F Source: [place] 6:43 PM [facility] REPOSITORY TYPE CODE TESTS RESULT OUT OF RANGE REFERENCE UNITS LAB L300.4150 11.7-14.9 SECONDS Normal PROTIME 12.7 LAB L300.4200 Normal INR 1.0 Performed By: #### L300.3900, L300.4310, L300.8000 #### [facility] [address] [facility] [facility] [id number] PARTIAL THROMBOPLAST Collected: 03/20/2018 Status: F Source: [place] TIME 6:43 PM [facility] REPOSITORY TYPE CODE TESTS RESULT OUT OF RANGE REFERENCE UNITS LAB L300.4310 24.1-36.2 Seconds Normal PTT 28.4 Performed By: #### L300.3900, L300.4310, L300.8000 #### [facility] [address] [place], [place], [address] D-DIMER QUANTITATIVE Collected: 03/20/2018 Status: F Source: [place] (DVT/PE) 6:43 PM [facility] REPOSITORY TYPE CODE TESTS RESULT OUT OF RANGE REFERENCE UNITS LAB L300.8000 0.27-0.49 FEU/ug/m Normal D-DIMER 0.47 QUANT Result Comment: NORMAL D-Dimer level (<0.50) indicates no DVT or PE. Performed By: #### L300.3900, L300.4310, L300.8000 #### [facility] [address] [facility] [place], [place], [address] BASIC METABOLIC Collected: 03/20/2018 Status: F Source: [place] PROFILE ([facility]) 6:43 PM [facility] REPOSITORY TYPE CODE TESTS RESULT OUT OF [...] 9 Performed By: #### L500.2500, L501.4010 #### [facility] [address] [place], [place], [address] TROPONIN-I Collected: 03/20/2018 Status: F Source: [place] 6:43 PM [facility] REPOSITORY TYPE CODE TESTS RESULT OUT OF RANGE REFERENCE UNITS LAB L501.4010 <0.045 ng/mL Normal < 0.015 TROPONIN-I Result Comment: TROPONIN-I EXPECTED VALUES <0.045 Negative 0.045 - 0.590 Consistent with Cardiac Damage > OR = 0.600 Critical Value Not every elevated troponin is indicative of [place]. These values should be used with clinical judgement in examining the patient's clinical picture for diagnosis. To establish a diagnosis of [place] versus myocardial injury, there must be a demonstrated rise and/or fall in the troponin values, in addition to ischemic symptoms, EKG changes, new regional wall motion abnormality, and/or angiographical evidence. PLEASE NOTE: REFERENCE RANGES EDITED 17 Performed By: #### L500.2500, L501.4010 #### [facility] [address] [place], [place], [address] PROGRESS Observed: 02/25/2018 Status: COMPLETED Source: [place] 7:16 AM [facility] REPOSITORY HNO ID: [id number] Author: Karuna (Pt) Jenelle Service: (none) Author [...] needs. Patient response monitored throughout treatment. Billing: [facility]: Therapeutic Exercise (82926): 1:1 time: 36 minutes (2 units: 23-37 mins) Modalities Ultrasound (22961) 1:1 time: 8 minutes1 unit: 8- 22 mins Total time: 44 minutes Karuna Almanzar PT CNTHERAPY Observed: 02/25/2018 Status: COMPLETED Source: [place] 7:00 AM [facility] REPOSITORY OT/PT/Speech Visit (PTWS) LACY ALVARADO ([id number]) 1950 F Date Time Provider Department 02/25/18 7:00 AM KARUNA ALMANZAR (PT) PTWS Date Time Provider Department Center 02/25/2018 7:00 AM [id number], DIANA (PT)PTWS [facility] [place] Reason for Visit: Physical Therapy [503] [...] CAPSULE,MANDIE* Take 1 capsule by mouth twice* YSLFUQOE-RVPCAEOQZ-MAXDAXTFE * Use 3 Drops in the left [...] needs. Patient response monitored throughout treatment. Billing: [facility]: Therapeutic Exercise (31865): 1:1 time: 36 minutes (2 units: 23-37 mins) Modalities Ultrasound (56178) 1:1 time: 8 minutes1 unit: 8- 22 mins Total time: 44 minutes Karuna Almanzar PT PROGRESS Observed: 02/22/2018 Status: COMPLETED Source: [place] 10:36 AM [facility] REPOSITORY HNO ID: [id number] Author: John Paul Godinez (Rt) Service: (none) Author Type: Sales Representative [employer] Type: Progress Notes Filed: 02/22/2018 10:36 AM [...] 2V AP/LAT Observed: 02/22/2018 Status: F Source: [place] RT 9:05 AM [facility] REPOSITORY * * *Final Report* * * [...] DEGENERATIVE CHANGES IN THE HIP AND KNEE. Entry Level Buyer: [facility] Transcribe Date/Time: Feb 22 2018 3:06P Dictated by : CHRIS FRANCIS MD This examination was interpreted and the report reviewed and electronically signed by: CHRIS FRANCIS MD on Feb 22 2018 3:15PM EST [id number] XR FOOT 3V AP/LAT/OBL Observed: 02/22/2018 Status: F Source: [place] RT 8:47 AM [facility] REPOSITORY * * *Final Report* * * [...] NO CHANGE COMPARED TO THE PREVIOUS EXAM. Entry Level Buyer: PSC[facility] Transcribe Date/Time: Feb 22 2018 3:15P Dictated by : CHRIS FRANCIS MD This examination was interpreted and the report reviewed and electronically signed by: CHRIS FRANCIS MD on Feb 22 2018 3:18PM EST [id number] [id number] Observed: 02/22/2018 Status: COMPLETED Source: [place] 8:03 AM [facility] REPOSITORY [facility] ID: [id number] Author: Mynor Adityapierre Service: (none) Author Type: [...] (H) 4.3 - 5.6 % Final Comment: [place] [employer] guidelines indicate that patients with [...] 81 MG TAB Take one(1) tablet daily. hwqzmqzv-sumvkaouk-pqdxsodevokbvl (CORTISPORIN) otic solution Use 3 Drops in [...] DPM PROGRESS Observed: 02/22/2018 Status: COMPLETED Source: [place] 7:57 AM [facility] REPOSITORY HNO ID: [id number] Author: Carmelita Limon RN Service: (none) Author [...] summer. CNOV Observed: 02/22/2018 Status: COMPLETED Source: [place] 7:40 AM [facility] REPOSITORY Office Visit (PODIWS) LACY ALVARADO ([id number]) 1950 F Date Time Provider Department 02/22/18 [...] comment (PT,) [facility] She continues with 10/10 pain that [...] (H) 4.3 - 5.6 % Final Comment: [place] [employer] guidelines indicate that patients with [...] 81 MG TAB Take one(1) tablet daily. sisoycdn-ckroddbgo-tmggboxlaunzfs (CORTISPORIN) otic solution Use 3 Drops in [...] low transverse - COLONOSCOP W/ OR W/O [facility] SPEC 01/12/2013 Colonoscopy - EGD W/O OR [...] Mynor Flores DPM Referring Provider: MYNOR FLORES [[id number]] Allergies As of Date: 02/22/2018 Noted Allergy [...] [M76.61] Order(s):XR FOOT GENERAL 3V AP/LAT/OBL RT [[id number]] Order #: [id number] FUTURE MRI ANKLE WO IVCON RT [[id number]] Order #: [id number] FUTURE Prescriptions as of 02/22/2018 Sig: VERAPAMIL [...] 81 MG TABLET Take one(1) tablet daily. CFPMCXKF-BMHGGBCSQ-VXTGSJLAJ * Use 3 Drops in the left [...] 02/22/18 PROGRESS Observed: 02/18/2018 Status: COMPLETED Source: [place] 7:05 AM [facility] [place] REPOSITORY HNO ID: [id number] Author: Karuna (Pt) Jenelle Service: (none) Author [...] needs. Patient response monitored throughout treatment. Billing: [facility]: Therapeutic Exercise (28128): 1:1 time: 35 minutes (2 units: 23-37 mins) Modalities Ultrasound (89861) 1:1 time: 8 minutes1 unit: 8- 22 mins Total time: 43 minutes Karuna Almanzar PT CNTHERAPY Observed: 02/18/2018 Status: COMPLETED Source: [place] 7:00 AM [facility] REPOSITORY OT/PT/Speech Visit (PTWS) LACY ALVARADO ([id number]) 1950 F Date Time Provider Department 02/18/18 7:00 AM KARUNA ALMANZAR (PT) PTWS Date Time Provider Department Center 02/18/2018 7:00 AM [id number], DIANA (PT)PTWS [facility] Reason for Visit: Physical Therapy [503] [...] CAPSULE,MANDIE* Take 1 capsule by mouth twice* UMUAQEMS-IADEHXHKD-QAKHODOFQ * Use 3 Drops in the left [...] needs. Patient response monitored throughout treatment. Billing: [facility]: Therapeutic Exercise (44729): 1:1 time: 35 minutes (2 units: 23-37 mins) Modalities Ultrasound (67868) 1:1 time: 8 minutes1 unit: 8- 22 mins Total time: 43 minutes Karuna Almanzar PT PROGRESS Observed: 02/11/2018 Status: COMPLETED Source: [place] 8:22 AM [facility] REPOSITORY HNO ID: [id number] Author: Karuna Almanzar Service: (none) Author Type: [...] and compliance. Patient education as noted. Billing: [facility]: Therapeutic Exercise (97774): 1:1 time: 38 minutes (3 units: 38-52 mins) Total time: 38 minutes Karuna Almanzar PT CNTHERAPY Observed: 02/11/2018 Status: COMPLETED Source: [place] 7:45 AM [facility] REPOSITORY OT/PT/Speech Visit (PTWS) LACY ALVARADO ([id number]) 1950 F Date Time Provider Department 02/11/18 7:45 AM KARUNA ALMANZAR (PT) PTWS Date Time Provider Department Center 02/11/2018 7:45 AM [id number], DIANA (PT)PTWS [facility] Reason for Visit: Physical Therapy [503] [...] CAPSULE,MANDIE* Take 1 capsule by mouth twice* VZFWLZDD-WXNWFCPXL-UYEMYVKMK * Use 3 Drops in the left [...] and compliance. Patient education as noted. Billing: [facility]: Therapeutic Exercise (37457): 1:1 time: 38 minutes (3 units: 38-52 mins) Total time: 38 minutes Karuna Almanzar PT PROGRESS Observed: 02/04/2018 Status: COMPLETED Source: [place] 8:16 AM [facility] REPOSITORY HNO ID: [id number] Author: Karuna (Pt) Jenelle Service: (none) Author [...] intensity of pain Goals updated on 02/04/2018. [place] in home exercise program.--MET for current HEP [...] be seen for Therapeutic exercise;Neuromuscular re-education;Manual therapy;Therapeutic activities;Self-fci management;Gait Training;Patient/Family/Caregiver Education;Modalities;Functional training;General Conditioning PLAN FOR [...] provided in selection of appropriate interventions. Billing: [facility]: Therapeutic Exercise (89084): 1:1 time: 20 minutes (1 unit: 8-22 mins) Total time: 20 minutes Karuna Almanzar PT CNTHERAPY Observed: 02/04/2018 Status: COMPLETED Source: [place] 7:45 AM [facility] REPOSITORY OT/PT/Speech Visit (PTWS) LACY ALVARADO ([id number]) 1950 F Date Time Provider Department 02/04/18 7:45 AM KARUNA ALMANZAR (PT) PTWS Date Time Provider Department Center 02/04/2018 7:45 AM [id number], DIANA (PT)PTWS [facility] Reason for Visit: PT Progress Note [...] CAPSULE,MANDIE* Take 1 capsule by mouth twice* GNORZLNV-CFWSYYCMG-HEOSIVGCM * Use 3 Drops in the left [...] intensity of pain Goals updated on 02/04/2018. [place] in home exercise program.--MET for current HEP [...] be seen for Therapeutic exercise;Neuromuscular re-education;Manual therapy;Therapeutic activities;Self-fci management;Gait Training;Patient/Family/Caregiver Education;Modalities;Functional training;General Conditioning PLAN FOR [...] provided in selection of appropriate interventions. Billing: [facility]: Therapeutic Exercise (45996): 1:1 time: 20 minutes (1 unit: 8-22 mins) Total time: 20 minutes Karuna Almanzar PT PROGRESS Observed: 02/02/2018 Status: COMPLETED Source: [place] 8:15 AM [facility] [place] REPOSITORY HNO ID: [id number] Author: Karuna Almanzar Service: (none) Author Type: [...] Manual Therapy: 1: Prone: IASTM with [employer] Excellence Manager Scanner for 13 minutes to R achillies tendon Skilled Intervention: Manual skills to improve joint mobility, ROM, and decrease pain. Utilized anatomy knowledge of the therapist, and assessment of patient's response to intervention. Billing: [facility]: Therapeutic Exercise (16013): 1:1 time: 22 minutes (1 unit: 8-22 mins) Manual Therapy (23914): 1:1 time: 13 minutes (1 unit: 8-22 mins) Total time: 35 minutes Karuna Almanzar PT CNTHERAPY Observed: 02/02/2018 Status: COMPLETED Source: [place] 7:45 AM [facility] REPOSITORY OT/PT/Speech Visit (PTWS) LACY ALVARADO [place] ([id number]) 1950 F Date Time Provider Department 02/02/18 7:45 AM KARUNA ALMANZAR (PT) PTWS Date Time Provider Department Center 02/02/2018 7:45 AM [id number], DIANA (PT)PTWS [facility] Reason for Visit: Physical Therapy [503] [...] one with evening meal OMEPRAZOLE 20 MG CAPSULE,MANDEI* Take 1 capsule by mouth twice* JARHYDTP-KZNBUZVVP-SNQVAUNDP * Use 3 Drops in the left [...] Manual Therapy: 1: Prone: IASTM with [employer] Excellence Manager Scanner for 13 minutes to R achillies tendon Skilled Intervention: Manual skills to improve joint mobility, ROM, and decrease pain. Utilized anatomy knowledge of the therapist, and assessment of patient's response to intervention. Billing: [facility]: Therapeutic Exercise (63027): 1:1 time: 22 minutes (1 unit: 8-22 mins) Manual Therapy (91368): 1:1 time: 13 minutes (1 unit: 8-22 mins) Total time: 35 minutes Karuna Almanzar PT PROGRESS Observed: 01/31/2018 Status: COMPLETED Source: [place] 12:14 PM [facility] REPOSITORY HNO ID: [id number] Author: Karuna (Pt) Jenelle Service: (none) Author [...] interventions. Manual Therapy: 1: Prone: IASTM with [employer] Scanner for 8 minutes to R achillies [...] needs. Patient response monitored throughout treatment. Billing: [facility]: Therapeutic Exercise (59417): 1:1 time: 20 minutes (2 units: 23-37 mins) Manual Therapy (05649): 1:1 time: 12 minutes (1 unit: 8-22 mins) Modalities Ultrasound (73422) 1:1 time: 10 minutes1 unit: 8-22 mins Total time: 42 minutes Karuna Almanzar PT CNTHERAPY Observed: 01/28/2018 Status: COMPLETED Source: [place] 7:45 AM [facility] REPOSITORY OT/PT/Speech Visit (PTWS) LACY ALVARADO ([id number]) 1950 F Date Time Provider Department 01/28/18 7:45 AM KARUNA ALMANZAR (PT) PTWS Date Time Provider Department Center 01/28/2018 7:45 AM [id number], DIANA (PT)PTWS [facility] Reason for Visit: Physical Therapy [503] [...] CAPSULE,MANDIE* Take 1 capsule by mouth twice* PQGKQIKU-JMZDSXSBA-RTJCLGIQG * Use 3 Drops in the left [...] Manual Therapy: 1: Prone: IASTM with [employer] Manager Scanner for 8 minutes to R achillies [...] needs. Patient response monitored throughout treatment. Billing: [facility]: Therapeutic Exercise (14150): 1:1 time: 20 minutes (2 units: 23-37 mins) Manual Therapy (34310): 1:1 time: 12 minutes (1 unit: 8-22 mins) Modalities Ultrasound (64516) 1:1 time: 10 minutes1 unit: 8-22 mins Total time: 42 minutes Karuna Almanzar PT PROGRESS Observed: 01/27/2018 Status: COMPLETED Source: [place] 12:32 PM [facility] REPOSITORY O ID: [id number] Author: Karuna (Jacquie Almanzar Service: (none) Author [...] up she had not problems. Tried [employer] Process Excellence Manager scanner tool for IASTM and Kinesiotaping. Will assess at next session. The patient will continue to benefit from continued skilled physical therapy for thex ex, manual, and US for pain control of R heel pain. PLAN FOR NEXT VISIT: See how liked [employer] Process Excellence Manager tools and kinesiotape; BAPS Board for Ankle [...] Manual Therapy: 1: Prone: IASTM with [employer] Process Excellence Manager Scanner for 6 minutes to R achillies [...] needs. Patient response monitored throughout treatment. Billing: [facility]: Therapeutic Exercise (62964): 1:1 time: 20 minutes (1 unit: 8-22 mins) Manual Therapy (94784): 1:1 time: 15 minutes (1 unit: 8-22 mins) Modalities Ultrasound (13572) 1:1 time: 10 minutes1 unit: 8-22 mins Total time: 45 minutes Karuna Almanzar PT CNTHERAPY Observed: 01/26/2018 Status: COMPLETED Source: [place] 7:00 AM [facility] REPOSITORY OT/PT/Speech Visit (PTWS) LACY ALVARADO ([id number]) 1950 F Date Time Provider Department 01/26/18 7:00 AM KARUNA ALMANZAR (PT) PTWS Date Time Provider Department Center 01/26/2018 7:00 AM [id number], DIANA (PT)PTWS [facility] Reason for Visit: Physical Therapy [503] [...] CAPSULE,MANDIE* Take 1 capsule by mouth twice* FWIUQOJV-EMSOKVRTD-DVOWEQJXJ * Use 3 Drops in the left [...] up she had not problems. Tried [employer] Process Excellence Manager scanner tool for IASTM and Kinesiotaping. Will assess at next session. The patient will continue to benefit from continued skilled physical therapy for thex ex, manual, and US for pain control of R heel pain. PLAN FOR NEXT VISIT: See how liked [employer] Process Excellence Manager tools and kinesiotape; BAPS Board for Ankle [...] cuing. Manual Therapy: 1: Prone: IASTM with [employer] Scanner for 6 minutes to R achillies [...] needs. Patient response monitored throughout treatment. Billing: [facility]: Therapeutic Exercise (57893): 1:1 time: 20 minutes (1 unit: 8-22 mins) Manual Therapy (55490): 1:1 time: 15 minutes (1 unit: 8-22 mins) Modalities Ultrasound (07939) 1:1 time: 10 minutes1 unit: 8-22 mins Total time: 45 minutes Karuna Almanzar PT PROGRESS Observed: 01/24/2018 Status: COMPLETED Source: [place] 6:49 AM [facility] REPOSITORY O ID: [id number] Author: Karuna (Pt) Jenelle Service: (none) Author [...] needs. Patient response monitored throughout treatment. Billing: [facility]: Therapeutic Exercise (85166): 1:1 time: 19 minutes (1 unit: 8-22 mins) Manual Therapy (14760): 1:1 time: 8 minutes (1 unit: 8-22 mins) Modalities Ultrasound (37891) 1:1 time: 15 minutes1 unit: 8-22 mins Total time: 42 minutes Karuna Almanzar PT CNTHERAPY Observed: 01/21/2018 Status: COMPLETED Source: [place] 7:45 AM [facility] REPOSITORY OT/PT/Speech Visit (PTWS) LACY ALVARADO ([id number]) 1950 F Date Time Provider Department 01/21/18 7:45 AM KARUNA ALMANZARPT) PTWS Date Time Provider Department Center 01/21/2018 7:45 AM [id number], DIANA (PT)PTWS [facility] Reason for Visit: Physical Therapy [503] Primary Visit Diagnosis:Tendonitis, Achilles, right [M76.61] Other Visit Diagnosis:Berenice's deformity, 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 Patient response monitored throughout treatment. Billing: [facility]: Therapeutic Exercise (07374): 1:1 time: 19 minutes (1 unit: 8-22 mins) Manual Therapy (56222): 1:1 time: 8 minutes (1 unit: 8-22 mins) Modalities Ultrasound (25100) 1:1 time: 15 minutes1 unit: 8-22 mins Total time: 42 minutes Karuna AlmanzarSARAH DEXA BONE DENSITY Observed: 01/13/2018 Status: F Source: [place] 8:34 AM [facility] REPOSITORY [facility] Imaging Services [address] [place] [address] Dexa Bone Density Study MR#: [id number] Acct: [id number] Name: LACY ALVARADO Rep #: [id number] : 1950 F 67 From: Tor Artis MD PCP: Mayda Garcia MD Status: REG CL Study: Dexa Bone Density Study Date of Exam: 01/13/18 Exam# [id number] Ordering Dr: Mayda Garcia MD STUDY: DUAL [...] Tor Artis MD at 13:29 EDT Tel [phone], Service support , CC: Mayda Garcia MD Entry Level Buyer: Signed PROGRESS Observed: 01/12/2018 Status: COMPLETED Source: [place] 7:58 AM [facility] [place] REPOSITORY [facility] ID: [id number] Author: Karuna (Pt) Jenelle Service: (none) Author [...] needs. Patient response monitored throughout treatment. Billing: [facility]: Therapeutic Exercise (18344): 1:1 time: 20 minutes (1 unit: 8-22 mins) Manual Therapy (79807): 1:1 time: 8 minutes (1 unit: 8-22 mins) Modalities Ultrasound (58534) 1:1 time: 15 minutes1 unit: 8-22 mins Total time: 43 minutes Karuna Almanzar PT CNTHERAPY Observed: 01/12/2018 Status: COMPLETED Source: [place] 7:00 AM [facility] REPOSITORY OT/PT/Speech Visit (PTWS) LACY ALVARADO ([id number]) 1950 F Date Time Provider Department 01/12/18 7:00 AM KARUNA ALMANZAR (PT) PTWS Date Time Provider Department Center 01/12/2018 7:00 AM [id number], DIANA (PT)PTWS [facility] Reason for Visit: Physical Therapy [503] [...] CAPSULE,MANDIE* Take 1 capsule by mouth twice* CMDHABOW-JEDTNYLFW-LCTXHVYZY * Use 3 Drops in the left [...] needs. Patient response monitored throughout treatment. Billing: [facility]: Therapeutic Exercise (74976): 1:1 time: 20 minutes (1 unit: 8-22 mins) Manual Therapy (64234): 1:1 time: 8 minutes (1 unit: 8-22 mins) Modalities Ultrasound (56283) 1:1 time: 15 minutes1 unit: 8-22 mins Total time: 43 minutes Karuna Almanzar PT PROGRESS Observed: 01/11/2018 Status: COMPLETED Source: [place] 9:13 AM [facility] REPOSITORY O ID: [id number] Author: Mynor Flores Service: (none) Author Type: Physician Type: Progress Notes Filed: 01/11/2018 9:48 AM Note Text: ? Mynor Flores DPM Department of Podiatry [address] [facility] [address] Dept: [phone] Dept 01/11/2018 Follow Up Podiatric Office Visit: [...] Take 1 capsule by mouth twice daily. 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 Mynor Flores DPM Department of Podiatry [address] [facility] [address] Dept: [phone] Dept 01/11/2018 Follow Up Podiatric Office Visit: [...] Take 1 capsule by mouth twice daily. 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 Patient response monitored throughout treatment. Billing: [facility]: Therapeutic Exercise (13892): 1:1 time: 15 minutes (1 unit: 8-22 mins) Modalities Ultrasound (78211) 1:1 time: 15 minutes1 unit: 8-22 mins Total time: 30 minutes Karuna Almanzar PT CNTHERAPY Observed: 01/07/2018 Status: COMPLETED Source: [place] 7:00 AM [facility] REPOSITORY OT/PT/Speech Visit (PTWS) LACY ALVARADO ([id number]) 1950 F Date Time Provider Department 01/07/18 7:00 AM KARUNA ALMANZAR (PT) PTWS Date Time Provider Department [place] 01/07/2018 7:00 AM [id number], DIANA (PT)PTWS [facility] Reason for Visit: Physical Therapy [503] [...] CAPSULE,MANDIE* Take 1 capsule by mouth twice* DITECVXU-OEFKCMVWT-FTPZAXVTW * Use 3 Drops in the left [...] needs. Patient response monitored throughout treatment. Billing: [facility]: Therapeutic Exercise (11214): 1:1 time: 15 minutes (1 unit: 8-22 mins) Modalities Ultrasound (98273) 1:1 time: 15 minutes1 unit: 8-22 mins Total time: 30 minutes Karuna Almanzar PT PROGRESS Observed: 01/05/2018 Status: COMPLETED Source: [place] 7:33 AM [facility] REPOSITORY [facility] ID: [id number] Author: Karuna (Pt) Jenelle Service: (none) Author [...] of Care: created on 01/05/18 through 03/16/18 [place] in home exercise program. Patient will decrease [...] Planned Treatment Interventions: Therapeutic exercise;Neuromuscular re-education;Manual therapy;Therapeutic activities;Self-fci management;Gait Training;Patient/Family/Caregiver Education;Modalities;Functional training;General ConditioningUltrasound PLAN FOR [...] facilitated with verbal, visual and tactile cuing. Self-Alf Management: 1: Recommended to stop wearing high [...] on clinical presentation, deficits, and needs. Billing: [facility]: Evaluation - Low Complexity (99420) Therapeutic Exercise (25606): 1:1 time: 15 minutes (1 unit: 8-22 mins) Educ Home Mgmt (69733): 1:1 time: 10 minutes (1 unit: 8-22 mins) Total time: 38 minutes Karuna Almanzar PT CNTHERAPY Observed: 01/05/2018 Status: COMPLETED Source: [place] 7:00 AM [facility] REPOSITORY OT/PT/Speech Visit (PTWS) LACY ALVARADO ([id number]) 1950 F Date Time Provider Department 01/05/18 7:00 AM KARUNA ALMANZARPT) PTWS Date Time Provider Department Center 01/05/2018 7:00 AM [id number], DIANA (PT)PTWS [facility] Reason for Visit: PT Eval [747] [...] CAPSULE,MANDIE* Take 1 capsule by mouth twice* DMLQUBUT-VKQPMBQUM-ALXNBFOYP * Use 3 Drops in the left [...] of Care: created on 01/05/18 through 03/16/18 [place] in home exercise program. Patient will decrease [...] Planned Treatment Interventions: Therapeutic exercise;Neuromuscular re-education;Manual therapy;Therapeutic activities;Self-fci management;Gait Training;Patient/Family/Caregiver Education;Modalities;Functional training;General ConditioningUltrasound PLAN FOR [...] facilitated with verbal, visual and tactile cuing. Self-Alf Management: 1: Recommended to stop wearing high [...] on clinical presentation, deficits, and needs. Billing: [facility]: Evaluation - Low Complexity (22723) Therapeutic Exercise (23117): 1:1 time: 15 minutes (1 unit: 8-22 mins) Educ Home Mgmt (82772): 1:1 time: 10 minutes (1 unit: 8-22 mins) Total time: 38 minutes Karuna Almanzar PT INTERNAL MEDICINE Observed: 12/28/2017 Status: F Source: [place] OFFICE VISIT 1:15 PM [facility] Internal Medicine [address] [place] [address] [place] [address] OFFICE VISIT Date of Service: 12/25/17 MR#: [id number] Acct: [id number] Name: LACY ALVARADO Rep #: [id number] : 1950 Provider: Mayda Garcia MD Age/Sex: 67/F Location: [facility] Status: Signed Intake Vital Signs12/25/17 Height 5 [...] She also follows up closely with her 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 ROS Const Constitutional: No chills, fatigue, fever(s), [...] colonoscopy up-to-date. This note was generated with Intercasting[employer] software. It may contain incorrect words, spelling, [...] 12/09/2017 Status: COMPLETED Source: [place] 7:57 AM [facility] REPOSITORY HNO ID: [id number] Author: Mynor Flores Service: (none) Author Type: Physician Type: Progress Notes Filed: 12/09/2017 8:20 AM Note Text: ? Mynor Flores DPM Department of Podiatry [address] [facility] [address] Dept: [phone] Dept 12/09/2017 Follow Up Podiatric Office Visit: [...] Take 1 capsule by mouth twice daily. 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 Mynor Flores DPM Department of Podiatry [address] [facility] [address] Dept: [phone] Dept 12/09/2017 Follow Up Podiatric Office Visit: [...] Take 1 capsule by mouth twice daily. 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 Lives with son in [place] REVIEW OF SYSTEMS: CONSTITUTIONAL: No fevers, chills, [...] Mynor Flores DPM Referring Provider: MYNOR FLORES [[id number]] Allergies As of Date: 12/09/2017 Noted Allergy [...] [R09.89] Order(s):PVR ANK PRESS [facility] [[id number]] Order #: [id number] FUTURE CONSULT TO PHYSICAL THERAPY [9032] Order #: [id number]: 1 Prescriptions as of 12/09/2017 Sig: VERAPAMIL [...] CAPSULE,MANDIE* Take 1 capsule by mouth twice* FUQUGVDO-ZVMZUNMKO-IOAGYSTBM * Use 3 Drops in the left [...] 10/20/2017 Status: F Source: [place] 8:52 AM [facility] REPOSITORY Order Comment: DR. GARCIA ORDERED LIPID [...] Lymph 1.42 Performed By: #### L100.0100 #### [facility] [address] [place], [address] COMPREHENSIVE METABOLIC Collected: 10/20/2017 Status: F Source: [place] [facility] 8:49 AM [facility] REPOSITORY Order Comment: Comments: Fasting DR. GARCIA [...] 6 Performed By: #### L500.4050, L500.4100 #### [facility] [address] [place], [place], [id number] LIPID PROFILE Collected: 10/20/2017 Status: F Source: [place] 8:49 AM [facility] REPOSITORY Order Comment: Comments: Fasting DR. GARCIA [...] 20 Performed By: #### L500.4050, L500.4100 #### [facility] [address] [place], [address] VITAMIN D,25 HYDROXY Collected: 10/20/2017 Status: F Source: [place] 8:49 AM [facility] REPOSITORY TYPE CODE TESTS RESULT OUT OF REFERENCE UNITS RANGE LAB L506.1000 29.95-100.01 ng/mL Low Vitamin D 19.9 25-OH Result Comment: Vitamin D 25(OH) Status Range Deficiency <20 ng/mL (50nmol/L) Insuffciency 20 - 30 ng/mL (50 - 75 nmol/L) Sufficiency 30 - 100 ng/mL (75 - 250 nmol/L) Toxicity >100 ng/mL (>250 nmol/L) Performed By: #### L506.1000 #### [facility] [address] [place], [address] ECHOCARDIOGRAM COMPLETE Observed: 10/19/2017 Status: F Source: [place] 3:34 PM [facility] REPOSITORY [facility] [facility] [address] [place] [address] Echo Complete 10/19/17918 MR#: [id number] Acct: [id number] Name: LACY ALVARADO Rep #: [id number] : 1950 66 From: Winston Koch MD [...] Dictated: 10/19/17 0919 Date Transcribed: 10/19/17 1526 Entry Level Buyer: Signed STRESS REPORT Observed: 10/19/2017 Status: F Source: [place] 12:10 PM [facility] REPOSITORY [facility] Cardiovascular Services [address] [place], [place] [address] [address] MR#: [id number] Acct: [id number] Name: LACY ALVARADO Rep #: [id number] : 1950 66 From: Winston Koch MD [...] MD Date Dictated: 10/19/171205 Date Transcribed: 10/19/171205 Entry Level Buyer: CO Signed PROGRESS Observed: 10/15/2017 Status: COMPLETED Source: [place] 9:37 AM [facility] REPOSITORY HNO ID: [id number] Author: Jossue Finley Service: (none) Author Type: Physician Type: Progress Notes Filed: 10/15/2017 4:13 PM Note Text: Jossue Finley MD Department of Orthopaedics Orthopaedics [address] [facility] [address] Dept: [phone] Dept October 15, 2017 CHIEF COMPLAINT: new [...] MD Imaging: IMPRESSION: MILD DEGENERATIVE JOINT DISEASE. Entry Level Buyer: PSCB ? Transcribe Date/Time: Oct 14 2017 [...] low transverse - [facility] 01/12/2013 Colonoscopy - EGD W/O OR [...] 81 MG TAB Take one(1) tablet daily. cwhkwzoo-baqishepj-ubsjqxlwxpnnda (CORTISPORIN) otic solution Use 3 Drops in [...] anxiety) This note was partially generated using NovaPlanner voice recognition system, and there may be some incorrect words, spellings, and punctuation that were not noted in checking the note before saving. Jossue Finley MD PROGRESS Observed: 10/15/2017 Status: COMPLETED Source: [place] 8:56 AM [facility] REPOSITORY O ID: [id number] Author: Norma Leone RN Service: (none) Author [...] tissue. CNOV Observed: 10/15/2017 Status: COMPLETED Source: [place] 8:10 AM [facility] REPOSITORY Office Visit (ORTHWS) LACY ALVARADO ([id number]) 1950 F Date Time Provider Department 10/15/17 [...] MD Department of Orthopaedics Orthopaedics [address] [facility] [address] Dept: [phone] Dept October 15, 2017 CHIEF COMPLAINT: new [...] MD Imaging: IMPRESSION: MILD DEGENERATIVE JOINT DISEASE. Entry Level Buyer: PSCB ? Transcribe Date/Time: Oct 14 2017 [...] 81 MG TAB Take one(1) tablet daily. hmiyxwaw-iyxihptef-qxvrcpavqwegih (CORTISPORIN) otic solution Use 3 Drops in [...] anxiety) This note was partially generated using NovaPlanner voice recognition system, and there may be some incorrect words, spellings, and punctuation that were not noted in checking the note before saving. Jossue Finley MD Referring Provider: JOSSUE FINLEY [[id number]] Allergies As of Date: 10/15/2017 Noted Allergy [...] 81 MG TABLET Take one(1) tablet daily. FWNOGNUJ-VESCNRDKZ-UULAJZRFG * Use 3 Drops in the left [...] BUILDER 10/15/2017 10/15/2017 Class: Suppress Questions Route: [facility] Encounter Status:Closed by JOSSUE FINLEY MD on 10/15/17 PROGRESS Observed: 10/14/2017 Status: COMPLETED Source: [place] 9:02 AM [facility] REPOSITORY [facility] ID: [id number] Author: John Paul Frias (Tech) Service: (none) Author Type: Sales Representative Printing Supplies Type: Progress Notes Filed: 10/14/2017 9:03 AM [...] 4V AP/PA Observed: 10/14/2017 Status: F Source: [place] BOTH+LAT/VÍCTOR LT 9:01 AM [facility] REPOSITORY * * *Final Report* [...] No fracture. IMPRESSION: MILD DEGENERATIVE JOINT DISEASE. Entry Level Buyer: PSCB Transcribe Date/Time: Oct 14 2017 12:16P Dictated by : CHRIS FRANCIS MD This examination was interpreted and the report reviewed and electronically signed by: CHRIS FRANCIS MD on Oct 14 2017 12:20PM EST [id number] CARDIOLOGY VISIT Observed: 09/23/2017 Status: F Source: [place] REPORT 10:29 AM [facility] REPOSITORY [facility] [facility] [place] [address] OFFICE VISIT Date of Service: 09/23/17 MR#: [id number] Acct: [id number] Name: LACY ALVARADO Rep #: [id number] : 1950 Provider: Winston Koch MD Age/Sex: 66/F [place] [facility] [place]: Signed [facility] Chief Complaint: Initial visit. 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 This note was generated with NovaPlanner dictation software. It may contain incorrect words, spelling, and punctuation that were not noted in checking the note before signing. Plan Detail Other Medications New: ketotifen 0.025%(0.035%) administer at lea1 drp ophthalmic (eye) BID PRN allergy sympt st 8 hours apart oms Coding Level of Care Code Off vis,est,level 3 Diagnoses Allergic conjunctivitis and rhinitis H10.10; J30.9 09/15/17 0814 <Electronically signed by Mayda Garcia MD> Date Mayda Garcia MD Cosigner Signature: Date (if applicable) CC: INTERNAL MEDICINE Observed: 08/18/2017 Status: F Source: [place] OFFICE VISIT 2:56 PM [facility] REPOSITORY [facility] [address] [place] [address] [place] [address] OFFICE VISIT Date of Service: 08/17/17 MR#: [id number] Acct: [id number] Name: LACY ALVARADO Rep #: [id number] : 1950 Provider: Mayda Garcia MD Age/Sex: 66/F Location: [facility] Status: Signed Intake Vital Signs08/17/17 Height 5 [...] Will follow. This note was generated with NovaPlanner dictation software. It may contain incorrect words, [...] 08/13/2017 Status: F Source: [place] 8:40 AM [facility] REPOSITORY [facility] Imaging Services [address] [place] [address] Pelvis 1 or 2 Views MR#: [id number] Acct: [id number] Name: LACY ALVARADO Rep #: [id number] : 1950 F 66 From: Tor Artis MD PCP: Mayda Garcia MD Status: REG CLI Study: Pelvis 1 or 2 Views Date of Exam: 08/13/17 Exam# [id number] Ordering Dr: Yee Rowland MD STUDY: X-RAY [...] Tor Artis MD at 10:35 EDT Tel [phone], Service support , CC: Mayda Garcia MD; Yee Rowland MD Entry Level Buyer: Signed THYROID STIM HORMONE Collected: 08/13/2017 Status: F Source: [place] (TSH) 8:29 AM [facility] REPOSITORY TYPE CODE TESTS RESULT OUT OF RANGE REFERENCE UNITS LAB L501.9520 0.358-3.74 uIU/mL Normal TSH 2.19 Performed By: #### L501.9520, L506.0400 #### [facility] Laboratory [address] [facility] [place], [place], [address] T4 FREE DIRECT Collected: 08/13/2017 Status: F Source: [place] 8:29 AM [facility] REPOSITORY TYPE CODE TESTS RESULT OUT OF RANGE REFERENCE UNITS LAB L506.0400 0.76-1.46 ng/dL Normal T4 FREE 0.92 DIRECT Performed By: #### L501.9520, L506.0400 #### [facility] [address] [place], [address] CBC W/DIFF, AUTOMATED Collected: 08/13/2017 Status: F Source: [place] 8:26 AM [facility] REPOSITORY TYPE CODE TESTS RESULT OUT OF [...] 1.40 Performed By: #### L100.0100, L101.9900 #### [facility] [address] [place], [place], [id number] ERYTHROCYTE SED RATE Collected: 08/13/2017 Status: F Source: [place] 8:26 AM [facility] REPOSITORY TYPE CODE TESTS RESULT OUT OF RANGE REFERENCE UNITS LAB L102.0000 0-30 mm/hr Normal SED RATE 16 Performed By: #### L100.0100, L101.9900 #### [facility] [address], [place], [address] COMPREHENSIVE METABOLIC Collected: 08/13/2017 Status: F Source: [facility] 8:26 AM [facility] REPOSITORY TYPE CODE TESTS RESULT OUT OF [...] Performed By: #### L500.4050, L501.6710, L505.7010 #### [facility] [address] [place], [address] CRP Collected: 08/13/2017 Status: F Source: [place] 8:26 AM [facility] REPOSITORY TYPE CODE TESTS RESULT OUT OF RANGE REFERENCE UNITS LAB L501.6710 0.0-3.0 mg/L High 6.77 C-REACTIVE PROT Result Comment: C-Reactive Protein (CRP) provides useful information for the diagnosis, therapy and monitoring of inflammatory processes and associated diseases. For the evaluation of Relative Risk for Cardiovascular Disease, a High Sensitivity CRP (HSCRP) should be ordered. Performed By: #### L500.4050, L501.6710, L505.7010 #### [facility] [address] [place], [address] RHEUMATOID FACTOR Collected: 08/13/2017 Status: F Source: [place] 8:26 AM [facility] REPOSITORY TYPE CODE TESTS RESULT OUT OF RANGE REFERENCE UNITS LAB L505.7010 <15 IU/mL Normal RHEUMATOID FAC < 10.0 Performed By: #### L500.4050, L501.6710, L505.7010 #### [facility] [address] [place], [address] ANTINUCLEAR ANTIBODIES Collected: 08/13/2017 Status: F Source: [place] DIRECT 8:26 AM [facility] REPOSITORY TYPE CODE TESTS RESULT OUT OF RANGE REFERENCE UNITS LAB L3100.5475 Negative Normal Negative RUBI-DIRECT Result Comment: Performed at: [facility] [id number] Supervisor Tank House: Lobo Das PhD, Phone: [phone] Performed By: #### L3100.5475 #### [facility] (refer to report for specific site) refer to report for address and phone number HEPATITIS B SURFACE Collected: 08/13/2017 Status: F Source: [place] AG 8:26 AM [facility] REPOSITORY TYPE CODE TESTS RESULT OUT OF RANGE REFERENCE UNITS LAB L3100.0400 Negative Normal HB Negative SURF AG Result Comment: Performed at: [facility] [employer] [id number] Supervisor [employer]: Lobo Das PhD, Phone: [phone] Performed at: [address] [place] [address], [place], [place] [id number] Supervisor [employer]: Victor Manuel Davis PhD, Phone: [phone] Performed at: - [facility] [address] [place], [place] [id number] Supervisor [employer] [place]: Wilson López MD, Phone: [phone] Performed By: #### L3100.0390, L3100.0528, L3100.0625, L3410.1400, L4600.0100 #### [facility] (refer to report for specific site) refer to report for address and phone number HEP B SURFACE Collected: 08/13/2017 Status: F Source: [place] ANTIBODIES 8:26 AM [facility] REPOSITORY TYPE CODE TESTS RESULT OUT OF [...] 08/13/2017 Status: F Source: [place] 8:26 AM [facility] REPOSITORY TYPE CODE TESTS RESULT OUT OF RANGE REFERENCE UNITS LAB L3100.0650 0.0-0.9 s/co ratio Normal HEP C AB <0.1 Result Comment: Negative: < 0.8 Indeterminate: 0.8 - 0.9 Positive: > 0.9 The CDC recommends that a positive HCV antibody result be followed up with a HCV Nucleic Acid Amplification test (981698). Performed By: #### L3100.0390, L3100.0528, L3100.0625, L3410.1400, L4600.0100 #### [facility] (refer to report for specific site) refer to report for address and phone number HLA B27 Collected: 08/13/2017 Status: F Source: [place] 8:26 AM [facility] REPOSITORY TYPE CODE TESTS RESULT OUT OF RANGE REFERENCE UNITS LAB L3410.1500 . Normal HLA Negative B27 Result Comment: HLA-B*27 Negative B27 allele interpretation for all loci based on IMGT/HLA database version 3.27 This test was developed and its performance characteristics determined by [facility]. It has not been cleared or approved by the Food and Drug Administration. HLA Lab CLIA ID Number [id number] This test was performed using PCR (Polymerase [...] 08/13/2017 Status: F Source: [place] 8:26 AM [facility] REPOSITORY TYPE CODE TESTS RESULT OUT OF RANGE REFERENCE UNITS LAB L4600.0100 0-19 units Normal ANTI-CCP 8 485502 Result Comment: Negative <20 Weak positive 20 - 39 Moderate positive 40 - 59 Strong positive >59 Performed By: #### L3100.0390, L3100.0528, L3100.0625, L3410.1400, L4600.0100 #### [facility] (refer to report for specific site) refer to report for address and phone number URINALYSIS, COMPLETE Collected: 07/29/2017 Status: F Source: [place] 3:43 PM [facility] REPOSITORY Order Comment: How was Urine Obtained? [...] URINE Performed By: #### L400.0001, M100.0650 #### [facility] [address] [place], [address] Observed: 07/29/2017 Status: F Source: [place] CULTURE, URINE 3:43 PM [facility] REPOSITORY Urine Culture Probable skin contaminants Below infection level. ORGANISM 1: Mixed Gram Positive Organisms [place] Count 1000-10,000 MIX CULTURE Mixed contaminants. Submit a new specimen if indicated. Performed By: #### L400.0001, M100.0650 #### [facility] [address] [facility] [place], [address] INTERNAL MEDICINE Observed: 07/29/2017 Status: F Source: [place] OFFICE VISIT 8:47 AM [facility] REPOSITORY [facility] [address] [place] [address] [place] [address] OFFICE VISIT Date of Service: 07/28/17 MR#: [id number] Acct: [id number] Name: JENNYLACY L Rep #: [id number] : 1950 Provider: Saul Nicole NP Age/Sex: 66/F Location: [facility] Status: Signed Intake Vital Signs07/28/17 Height 5 [...] PANEL, BASIC Collected: 07/20/2017 Status: F Source: [place] 9:16 AM [facility] REPOSITORY TYPE CODE TESTS RESULT OUT OF [...] Desk Reference: National Heart, Lung, and Blood [place]. National Institutes of Health. 2001: NIH Publication No. 01-3305. 2. An International Atherosclerosis Society position paper: global recommendations for the management of dyslipidemia: executive summary, Atherosclerosis. 2014: 232(2):410-413. Performed By: #### LIPB #### [facility] [address] [place], [place] [address] CNCO Observed: 07/20/2017 Status: COMPLETED Source: [place] 9:15 AM [facility] REPOSITORY HNO ID: [id number] Author: Mammography Coordinator Service: (none) Author Type: Physician Type: Letter Filed: 07/21/2017 11:31 PM Note Text: July 20, 2017 PID: [id number] Lacy Alvarado [address] [place] [address] Dear Ms. Alvarado, We are pleased to [...] report will be kept on file at [facility] as part of your permanent medical record and are available for your continuing care. Thank you for allowing us to help in meeting your health care needs. Sincerely, Dr. Jaime Interpreting Radiologist [facility] (Normal over 40) HAYLEE SCREENING Observed: 07/20/2017 Status: F Source: [place] 8:44 AM [facility] REPOSITORY * * *Final Report* * * DATE OF EXAM: Jul 20 2017 8:44AM WOW 0581 - HAYLEE SCREENING / PROCEDURE REASON: Encounter for screening mammogram for malignant neoplasm of breast * * * * Physician Interpretation * * * * RESULT: #[id number] - HAYLEE SCREENING BILATERAL DIGITAL SCREENING MAMMOGRAM [...] made to exams dated: 03/11/2016 mammogram - [facility] and 12/19/2014 mammogram - [facility]. There are scattered fibroglandular elements in both breasts. No significant masses, calcifications, or other findings are seen in either breast. There has been no significant interval change. IMPRESSION: NEGATIVE There is no mammographic evidence of malignancy.A 1 year screening mammogram is recommended. Ronda Jaime M.D. cp/gudelia:07/20/2017 09:15:21 Supervisor Prepress: Birelle HOPKINS(Tere)(Rg), [facility] letter sent: Normal over 40 Mammogram BI-RADS: 1 Negative Entry Level Buyer: Gudelia Transcribe Date/Time: Jul 20 2017 8:46A Dictated by: RONDA JAIME MD This examination was interpreted and the report reviewed and electronically signed by: RONDA JAIME MD on Jul 20 2017 9:15AM EST [id number] ENDOCRINOLOGY VISIT Observed: 07/17/2017 Status: F Source: [place] REPORT 11:59 AM [facility] REPOSITORY [facility] [address] [place] [address] OFFICE VISIT Date of Service: 07/16/17 MR#: [id number] Acct: [id number] Name: LACY ALVARADO Rep #: [id number] : 1950 Provider: Zee Montiel NP Age/Sex: 66/F Location: [facility] Status: Signed HPI History of present illness [...] acute distress, well developed Nutritional Appearance: overweight [facility] Head: normal to inspection Ears: hearing grossly [...] Position Sitting Intake Visit Reasons: Thyroid dysfunction Desk Operator Required: No Accompanied by: Self Is patient [...] and colleagues, with an educational amberly from [employer]. Scoring: Total Score Depression Severity Action 1-4 Minimal depression No action needed 5-9 Mild depression Repeat PHQ-9 at follow up 10-14 Moderate depression Make tx plan,consider counseling, fup, prescription 07/17/17 9278 <Electronically signed by Zee GRIMES> Date Zee GRIMES Cosigner Signature: Date (if applicable) CC: 12 LEAD ELECTROCARDIOGRAM Observed: 06/24/2017 Status: F Source: [place] 1:23 PM [facility] REPOSITORY [facility] Cardiovascular Services [address] [place] [address] 12 Lead EKG 06/22/17 1036 MR#: [id number] Acct: [id number] Name: LACY ALVARADO Rep #: [id number] : 1950 66 From: Newton Odonnell MD [...] voltage QRS Confirmed by MILADY ZUNIGA, NEWTON ([id number]), managing editor NITISH CLARKE ([id number]) on 06/24/2017 1:22:46 PM Referred By: JOSE E Confirmed By:NEWTON ODONNELL MD 06/24/17 1322 Date Newton Odonnell MD CC: Mayda Garcia MD; Luis Miguel Pham MD Signed INTERNAL MEDICINE Observed: 06/23/2017 Status: F Source: [place] OFFICE VISIT 5:55 PM [facility] Internal Medicine [address] [place] [address] OFFICE VISIT Date of Service: 06/23/17 MR#: [id number] Acct: [id number] Name: LACY ALVARADO Rep #: [id number] : 1950 Provider: Saul Nicole NP Age/Sex: 66/F Location: [facility] Status: Signed Intake Vital Signs06/23/17 Height 5 [...] 02/26/17 [History Confirmed 06/22/17] Hydrocodone Bitart/Apap 5-325 [[place] 5/325] 1 - 2 tab PO Q4H [...] listed above. The patient was seen at [facility] emergency department yesterday and diagnosed with viral illness. A rapid influenza and chest x-ray was done which was negative. The patient states that her symptoms of fever, chills, body aches, and productive cough of green-yellow sputum began approximately 2 days ago. The patient has not tried any dupg-cti-dnqlkcz treatments for this and her main concern [...] oriented x3 Limitations: mental status not altered [facility] Head: normal to inspection Ears: hearing grossly [...] days now. She has not tried any gupz-fkj-rxuwkzr treatments. Discussed with her given the fact that she is on Mobic, would advise her to take Tylenol for the body aches. Discussed with her using her Flonase to help with her sinus symptoms and advised on other qkog-ucl-plazyqj treatments as well. Tessalon was given for [...] Upper respiratory infection J06.9 Cough R05 06/23/17 3773 <Electronically signed by Saul GRIMES> Date Saul GRIMES Cosigner Signature: Date (if applicable) CC: DISCHARGE INSTRUCTION Observed: 06/22/2017 Status: F Source: [place] 11:23 [facility] Medical Records Department [address] [place] [address] Discharge Instruction 06/22/17 1122 MR#: [id number] Acct: [id number] Name: LACY ALVARADO Rep #: [id number] : 1950 66 From: Luis Miguel Pham [...] problems, contact your Primary Care Provider. Call [facility] ([phone]) or report to the closest Emergency Room. Call 911 if necessary. 06/22/17 1123 <Electronically signed by Luis Miguel Pham MD> Date Luis Miguel Pham MD Cosigner Signature (If Indicated): Date CC: Mayda Garcia MD EMERGENCY DEPARTMENT Observed: 06/22/2017 Status: F Source: [place] SUMMARY 11:22 [facility] Medical Records Department [address] [place] [address] Emergency Department Summary 06/22/17 1119 MR#: [id number] Acct: [id number] Name: LACY ALVARADO Rep #: [id number] : 1950 66 From: Luis Miguel Pham [...] Viral syndrome This note was generated with NovaPlanner dictation software. It may contain incorrect words, [...] your Primary Care Provider. Call [facility] ([phone]) or report to the closest Emergency Room. Call 911 if necessary. 06/22/17 1122 <Electronically signed by Luis Miguel Pham MD> Date Luis Miguel Pham MD Cosigner Signature (If Indicated): Date CC: Mayda Garcia MD Observed: 06/22/2017 Status: F Source: [place] INFLUENZA A+B (RAPID 10:35 AM [facility]IM[facility]) REPOSITORY FLU A/B Rapid Negative test results should be confirmed by culture. Order Rapid Viral Culture for Influenzae A+B ([id number]) if clinically indicated. Influenza Ag, Direct Presumptive NEGATIVE for Influenza A/B Antigen (See Note) Performed By: #### M101.0101 #### [facility] [address] [place], [address] BASIC METABOLIC Collected: 06/22/2017 Status: F Source: [place] PROFILE (BMP) 10:25 AM [facility] REPOSITORY Order Comment: 'TROP' Serial specimen #1, [...] 6 Performed By: #### L500.2500, L501.4010 #### [facility] [address] [facility] [place], [address] TROPONIN-I Collected: 06/22/2017 Status: F Source: [place] 10:25 AM [facility] REPOSITORY Order Comment: 'TROP' Serial specimen #1, #2, #3, or #4: 1 TYPE CODE TESTS RESULT OUT OF RANGE REFERENCE UNITS LAB L501.4010 <0.06 ng/mL Normal < 0.02 TROPONIN-I Result Comment: TROPONIN-I EXPECTED VALUES <0.05 NEGATIVE 0.06 - 0.59 AT RISK OF [place] > OR = 0.60 SUGGEST [place] Performed By: #### L500.2500, L501.4010 #### [facility] [address] [facility] [place], [place], [address] CBC W/DIFF, AUTOMATED Collected: 06/22/2017 Status: F Source: [place] 10:25 AM [facility] REPOSITORY TYPE CODE TESTS RESULT OUT OF [...] Lymph 1.35 Performed By: #### L100.0100 #### [facility] [address] [facility] [place], [address] CHEST PA AND LATERAL Observed: 06/22/2017 Status: F Source: [place] 10:20 AM [facility] REPOSITORY [facility] Imaging Services [address] [place] [address] Chest PA and Lateral MR#: [id number] Acct: [id number] Name: LACY ALVARADO Rep #: [id number] : 1950 F 66 From: Jossue Abel MD PCP: Mayda Garcia MD Status: REG ER Study: Chest PA and Lateral Date of Exam: 06/22/17 Exam# [id number] Ordering Dr: Luis Miguel Pham MD STUDY: [...] Mayda Garcia MD; Luis Miguel Pham MD Entry Level Buyer: Signed INTERNAL MEDICINE Observed: 05/21/2017 Status: F Source: [place] OFFICE VISIT 1:32 PM [facility] Internal Medicine [address] [place] [address] OFFICE VISIT Date of Service: 05/18/17 MR#: [id number] Acct: [id number] Name: LACY ALVARADO Rep #: [id number] : 1950 Provider: Mayda Garcia MD Age/Sex: 66/F Location: [facility] Status: Signed Intake Vital Signs05/18/17 Height 5 ft 2 in 05/18/17 Weight: 180 lb 4 oz Intake Visit Reasons: new pt. visit Desk Operator Required: No Accompanied by: None Is patient [...] [History Confirmed 02/26/17] Fluticasone 0.05% [Flonase Nasal [place]] 1 spray NASAL BID 02/26/17 [History Confirmed 02/26/17] Losartan Potassium [Cozaar] 25 mg PO DAILY 02/26/17 [History Confirmed 02/26/17] Hydrocodone Bitart/Apap 5-325 [[place] 5/325] 1 - 2 tab PO Q4H [...] She had previously followed up at the [facility]. She has a PMH of Hypertension, [...] She follows up with her opthalmologist and cissp. Blood pressure in the office is noted to be elevated. She reports compliance with her medications. 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 She however, would like to transfer care to [facility]. Last seizure episode was about 2 years [...] well developed Orientation: alert, awake, oriented x3 [facility] Head: atraumatic, normocephalic Ears: hearing grossly normal [...] She would like to transfer care to [facility]. Will refer to the [place] [facility]. Orders Referrals: 4. Obstructive sleep [...] Triamcinolone given. This note was generated with Intercastingation software. It may contain incorrect words, spelling, [...] MICROALB:CREAT Collected: 05/18/2017 Status: F Source: [place] [facility] UR 10:15 AM [facility] REPOSITORY TYPE CODE TESTS RESULT OUT OF RANGE REFERENCE UNITS LAB L501.1200 NO RANGE EST. mg/dL Normal UR CREAT 135.00 LAB L502.0500 NO RANGE EST. mg/L Normal 10.7 MICROALBUMIN ,UR LAB L502.0600 <30 mg/g CRE mg/g CRE Normal 7.9 MALB:CREAT Performed By: #### L502.0250, L501.9985 #### [facility] Laboratory [address] [place], [address] HEMOGLOBIN A1C Collected: 05/18/2017 Status: F Source: SANDEE 10:15 AM [facility] REPOSITORY TYPE CODE TESTS RESULT OUT OF RANGE REFERENCE UNITS LAB L501.9985 4.2-6.3 % High HGB A1C 6.7 Performed By: #### L502.0250, L501.9985 #### [facility] Laboratory [address] [place], [address] ALLERGIES ALLERGIES DATE TYPE / CODE NAME / CODE REACTION SEVERITY SOURCE 04/16/2018 Drug prednisone/F0060 Nausea Unknown [facility] Allergy/416 90616(RXNORM) Hospital 531819(SNOM Repository ED CT) 01/30/2014 Environ/420 SEASONAL OTHER: SEE C [facility] 564410(SNOM ALLERGIES Main [place] ED CT) Repository /[id number] SEASONAL [facility] 6(SNOMED ALLERGIES Health System CT) Repository ENCOUNTERS ENCOUNTERS ADMIT/DISCHARGE ACCOUNT NUMBER ADMITTING ENCOUNTER LOCATION SOURCE CLASS 04/19/2018 [id number] Ambulatory [facility] ding:CR Repository 04/16/2018/04/16/20 [id number] Ambulatory BMSBuilding: [facility] Repository 04/14/2018 [id number] Ambulatory BMSBuilding: [place] BMS.[facility] Repository 04/12/2018 [id number] Ambulatory [facility] ding:LAB Repository 03/30/2018 [id number] Ambulatory [facility] ding:CR Repository 03/29/2018/03/29/20 [id number] Ambulatory BMSBuilding: [place] 18 [facility] Repository 03/21/2018/03/23/20 [id number] Ambulatory BMSBuilding: [place] 18 [facility] Repository 03/21/2018/03/23/20 [id number] Agyepong, Inpatient [place] 18 [facility] ding:ICURoom Repository : [id number]: 1 03/21/2018 [id number] Agyepong, Ambulatory BMSBuilding: [place] BMS.[facility] Repository 03/21/2018 [id number] Agyepong, Ambulatory BMSBuilding: [place] BMS.CF.[facility] Repository 03/21/2018 [id number] Agyepong, Ambulatory BMSBuilding: [place] BMS.[facility] Repository 03/20/2018 [id number] Agyepong, Ambulatory BMSBuilding: [place] BMS.[facility] Repository 03/20/2018 [id number] Agyepong, Ambulatory BMSBuilding: [place] BMS.CF.[facility] Repository 03/20/2018 [id number] Agyepong, Ambulatory BMSBuilding: [place] BMS.[facility] Repository 03/20/2018 [id number] Ambulatory BMSBuilding: [facility] Repository 02/25/2018/03/01/20 [id number] Ambulatory Vichy 18 [facility] [place] Repository 02/22/2018/02/23/20 [id number] Ambulatory V[place]y 18 [facility] [place] Repository 02/22/2018/02/23/20 [id number] Ambulatory V[facility] 18 [facility] [place] Repository 02/18/2018/02/23/20 [id number] Ambulatory Julien 18 [facility] [place] Repository 02/11/2018/02/13/20 [id number] Ambulatory [facility]y 18 [facility] [place] Repository 02/09/2018 [id number] Ambulatory Building:[facility] Repository 02/04/2018/02/05/20 [id number] Ambulatory Julien 18 [facility] [place] Repository 02/02/2018/02/04/20 [id number] Ambulatory Julien 18 [facility] [place] Repository 01/28/2018/02/02/20 [id number] Ambulatory Julien 18 [facility] [place] Repository 01/26/2018/01/28/20 [id number] Ambulatory Julien 18 [facility] [place] Repository 01/21/2018/01/26/20 [id number] Ambulatory Julien 18 [facility] [place] Repository 01/14/2018 [id number] Ambulatory [facility] [place] Repository 01/13/2018 [id number] Ambulatory [facility] Hospital ding:OPBD Repository 01/12/2018/01/14/20 [id number] Ambulatory Julien 18 [facility] [place] Repository 01/11/2018/01/12/20 [id number] Ambulatory Julien 18 [facility] [place] Repository 01/07/2018/01/09/20 [id number] Ambulatory [address] Repository 01/05/2018/01/07/20 [id number] Ambulatory [address] Repository 12/25/2017/12/26/19 [id number] Ambulatory BMSBuilding: [place] 18 BMS.[facility] Repository 12/17/2017/12/18/19 [id number] Ambulatory [address] Repository 12/09/2017/12/10/19 [id number] Ambulatory [address] Repository 12/07/2017 [id number] Ambulatory BMSBuilding: [place] BMS.[facility] Repository 11/09/2017 [id number] Ambulatory BMSBuilding: [place] BMS.[facility] Repository 10/20/2017 [id number] Ambulatory [facility] ding:MTLAB Repository 10/19/2017 [id number] Ambulatory [facility] ding:CVS Repository 10/19/2017 [id number] Ambulatory BMSBuilding: [place] [facility] Repository 10/15/2017/10/17/19 [id number] Ambulatory [address] Repository 10/14/2017/10/15/19 [id number] Ambulatory [address] Repository 09/23/2017/09/24/19 [id number] Ambulatory BMSBuilding: [place] 18 BMS.[facility] Repository 09/14/2017/09/15/19 [id number] Ambulatory BMSBuilding: [place] 18 BMS.[facility] Repository 08/17/2017/08/18/19 [id number] Ambulatory BMSBuilding: [place] 18 BMS.[facility] Repository 08/13/2017 [id number] Ambulatory [facility] ding:MTLAB Repository 07/29/2017 [id number] Ambulatory [facility] ding:LABSPEC Repository 07/28/2017/07/29/19 [id number] Ambulatory BMSBuilding: [place] 18 BMS.[facility] Repository 07/20/2017/07/21/19 [id number] Ambulatory [address] Repository 07/20/2017/07/21/19 [id number] Ambulatory [address] Repository 07/16/2017/07/17/19 [id number] Ambulatory BMSBuilding: [place] 18 BMS.[facility] Repository 06/23/2017/06/23/19 [id number] Ambulatory BMSBuilding: [place] 18 BMS.[facility] Repository 06/22/2017/06/22/19 [id number] Emergency [place] 18 [facility] ding:ED Repository 05/29/2017 [id number] Ambulatory BMSBuilding: [place] BMS.[facility] Repository 05/18/[id number] [facility] ding:MTLAB Repository 05/18/2017/05/18/19 [id number] Ambulatory BMSBuilding: [place] 18 BMS.[facility] Repository PAYERS PAYERS ENCOUNTER GUARANTOR PAYER SUBSCRIBER SOURCE 04/19/2018 LACY L Primary LACY L [place] [id number] Insurance:MEDICARE PHILLIPSDOB: [facility] [address] PART [address] [facility] [id number] Hospital 110 BLDG Number: Repository [address] [place] [address] [id number]: (330) Date:2018-03-30 [id number] (HP) 04/19/2018 Secondary LACY L [place] Insurance:ANTHEMPolic PHILLIPSDOB: [facility] y Number: [id number] Hospital [id number] Repository Date:7201-90-72VM [address] [address]CC: 04/19/2018 Tertiary NOT GIVENUNK [place] Insurance:SELF PAY [facility] Number: Effective Repository Date:2018-03-30 04/16/2018 LACY L Primary LACY L [place] [id number] Insurance:MEDICARE PHILLIPSDOB: [facility] [address] PART A [facility] [id number] Hospital 110 BLDG Number: Repository [address] [place] [address] [id number]: (330) Date:2018-03-301216 (HP) 04/16/2018 Secondary LACY L [place] Insurance:ANTHEMPolic PHILLIPSDOB: Community y Number: [id number] Hospital [id number] Repository Date:1451-51-36ZE [address] [place] [address] 59718TU: 04/16/2018 Tertiary NOT GIVENUNK [place] Insurance:SELF PAY [facility] Number: Effective Repository Date:2018-04-12 04/14/2018 LACY L Primary LACY L [place] [id number] Insurance:MEDICARE PHILLIPSDOB: Community [address] PART A [facility] [id number] Hospital 110 BLDG Number: Repository [address] [id number]: (330) Date:2018-04-149010 () 04/14/2018 Secondary LACY L [place] Insurance:ANTHEMPolic PHILLIPSDOB: Community y Number: [id number] Hospital [id number] Repository Date:2840-19-11PX [address] [place] [address] 63477JC: 04/14/2018 Tertiary NOT GIVENUNK [place] Insurance:SELF PAY [facility] Number: Effective Repository Date:2018-04-14 04/12/2018 LACY L Primary LACY L [place] [id number] Insurance:MEDICARE PHILLIPSDOB: Community [address] PART A [facility] [id number] Hospital 110 BLDG Number: Repository [address] [id number]: (330) Date:2018-04-126271 () 04/12/2018 Secondary LACY L [place] Insurance:ANTHEMPolic PHILLIPSDOB: Community y Number: [id number] Hospital [id number] Repository Date:0316-56-83ID [address] [place] [address] 19873GS: 04/12/2018 Tertiary NOT GIVENUNK [place] Insurance:SELF PAY [facility] Number: Effective Repository Date:2018-04-12 03/30/2018 LACY L Primary LACY L [place] [id number] Insurance:MEDICARE PHILLIPSDOB: Community [address] PART A [facility] [id number] Hospital 110 BLDG Number: Repository HARJ[place] nd [id number] 19663Gdb: (330) Date:2018-03-231216 () 03/30/2018 Secondary LACY L [place] Insurance:ANTHEMPolic PHILLIPSDOB: Community y Number: [id number] Hospital [id number] Repository Date:0600-17-78ZI [address] [place] [address] 75468OI: 03/30/2018 Tertiary NOT GIVENUNK [place] Insurance:SELF PAY [facility] Number: Effective Repository Date:2018-03-23 03/29/2018 LACY L Primary LACY L [place] [id number] Insurance:MEDICARE PHILLIPSDOB: Community [address] PART A [facility] [id number] Hospital 110 BLDG Number: Repository [place] nd [id number]: (330) Date:2017-12-251219 () 03/29/2018 Secondary LACY L [place] Insurance:ANTHEMPolic PHILLIPSDOB: Community y Number: [id number] Hospital [id number] Repository Date:3578-65-93SB [address] [place] [address] 84104YD: 03/29/2018 Tertiary NOT GIVENUNK [place] Insurance:SELF PAY [facility] Number: Effective Repository Date:2018-03-23 03/21/2018 LACY L Primary LACY L [place] [id number] Insurance:MEDICARE PHILLIPSDOB: Community [address] PART A [facility] [id number] Hospital 110 BLDG Number: Repository [place] nd [id number]: (330) Date:2018-03-201216 () 03/21/2018 Secondary LACY L [place] Insurance:ANTHEMPolic PHILLIPSDOB: Community y Number: [id number] Hospital [id number] Repository Date:1235-58-49UC [address] [place] [address] 16901OR: 03/21/2018 Tertiary NOT GIVENUNK [place] Insurance:SELF PAY [facility] Number: Effective Repository Date:2018-03-21 03/21/2018 LACY L Primary LACY L [place] [id number] Insurance:MEDICARE PHILLIPSDOB: Community [address] PART A [facility] [id number] Hospital 110 BLDG Number: Repository HARJIT nd [id number]: 330) Date:2018-03-204496 () 03/21/2018 Secondary LACY L [place] Insurance:ANTHEMPolic PHILLIPSDOB: Community y Number: [id number] Indian Medical [id number] Repository Date:6992-00-57[address] [address]OQ: 03/21/2018 Tertiary NOT GIVENUNK [place] Insurance:SELF PAY [facility] Number: Effective Repository Date:2018-03-20 03/21/2018 LACY L Primary LACY L [place] [id number] Insurance:MEDICARE PHILLIPSDOB: Community [address] PART A [facility] [id number] Hospital 110 BLDG Number: Repository HARJIT nd [id number]: 330) Date:2018-03-20121 () 03/21/2018 Secondary LACY L [place] Insurance:ANTHEMPolic PHILLIPSDOB: Community y Number: [id number] Hospital [id number] Repository Date:4112-87-44[id number] [place] [address] 79283YB: 03/21/2018 Tertiary NOT GIVENUNK [place] Insurance:SELF PAY [facility] Number: Effective Repository Date:2018-03-21 03/21/2018 LACY L Primary LACY L [place] [id number] Insurance:MEDICARE PHILLIPSDOB: Community [address] PART A [facility] [id number] Hospital 110 BLDG Number: Repository HARJIT nd [id number]: (330) Date:2018-03-201216 () 03/21/2018 Secondary LACY L [place] Insurance:ANTHEMPolic PHILLIPSDOB: Community y Number: [id number] Indian Medical [id number] Repository Date:9711-73-92LI [address] [address]PC: 03/21/2018 Tertiary NOT GIVENUNK [place] Insurance:SELF PAY [facility] Number: Effective Repository Date:2018-03-21 03/21/2018 LACY L Primary LACY L [place] [id number] Insurance:MEDICARE PHILLIPSDOB: Community [address] PART A [facility] [id number] Hospital 110 BLDG Number: Repository [place] [id number]: (330) Date:2018-03-201216 () 03/21/2018 Secondary LACY L [place] Insurance:ANTHEMPolic PHILLIPSDOB: Community y Number: [id number] Indian Medical [id number] Repository Date:0891-86-24AT [address] [place] [address] [place] [address]GB: 03/21/2018 Tertiary NOT GIVENUNK [place] Insurance:SELF PAY [facility] Number: Effective Repository Date:2018-03-21 03/20/2018 LACY L Primary LACY L [place] [id number] Insurance:MEDICARE PHILLIPSDOB: Community [address] PART A [facility] [id number] Hospital 110 BLDG Number: Repository [place] [id number]: (330) Date:2018-03-201216 () 03/20/2018 Secondary LACY L [place] Insurance:ANTHEMPolic PHILLIPSDOB: Community y Number: [id number] Hospital [id number] Repository Date:4322-20-17MF [address] [place] [address]TO: 03/20/2018 Tertiary NOT GIVENUNK [place] Insurance:SELF PAY [facility] Number: Effective Repository Date:2018-03-20 03/20/2018 LACY L Primary LACY L [place] [id number] Insurance:MEDICARE PHILLIPSDOB: Community [address] PART A [facility] [id number] Hospital 110 BLDG Number: Repository [place] [id number]: (330) Date:2018-03-20 () 03/20/2018 Secondary LACY L [place] Insurance:ANTHEMPolic PHILLIPSDOB: Community y Number: [id number] Hospital [id number] Repository Date:1409-97-76BJ [address] [address]TR: 03/20/2018 Tertiary NOT GIVENUNK [place] Insurance:SELF PAY [facility] Number: Effective Repository Date:2018-03-20 03/20/2018 LACY L Primary LACY L [place] [id number] Insurance:MEDICARE PHILLIPSDOB: Community [address] PART A [facility] [id number] Hospital 110 BLDG Number: Repository [place] nd [id number] [address]Wwa: (330) Date:2018-03-201213 () 03/20/2018 Secondary LACY L [place] Insurance:ANTHEMPolic PHILLIPSDOB: Community y Number: [id number] Hospital [id number] Repository Date:2848-27-66VN [address] [place] [address]70[address]ME: 03/20/2018 Tertiary NOT GIVENUNK [place] Insurance:SELF PAY [facility] Number: Effective Repository Date:2018-03-20 03/20/2018 LACY L Primary LACY L [place] [id number] Insurance:MEDICARE PHILLIPSDOB: Community [address] PART A [facility] [id number] Hospital 110 BLDG Number: Repository [address] [id number]: (330) Date:2018-03-20 () 03/20/2018 Secondary LACY L [place] Insurance:ANTHEMPolic PHILLIPSDOB: Community y Number: [id number] Hospital [id number] Repository Date:3099-92-82AJ [address] [place] [address] 12895SX: 03/20/2018 Tertiary NOT GIVENUNK [place] Insurance:SELF PAY [facility] Number: Effective Repository Date:2018-03-20 02/09/2018 LACY L Primary LACY L [facility] PHILLIPSDOB: Insurance:MEDICARE A PHILLIPSDOB: [facility] Number: [id number] Repository [address] [id number] [address], [place] Date: [address]Hqb: () 01/13/2018 LACY L Primary LACY L [place] [id number] Insurance:MEDICARE PHILLIPSDOB: Community [address] PART A [facility] [id number] Hospital 110 BLDG Number: Repository [address] [place] [address] [id number]: (330) Date:2017-12-25 201-1214 () 01/13/2018 Secondary LACY L [place] Insurance:ANTHEMPolic PHILLIPSDOB: Community y Number: [id number] Hospital [id number] Repository Date:2642-29-02ZY [address] [place] [address] 26274ES: 01/13/2018 Tertiary NOT GIVENUNK [place] Insurance:SELF PAY [facility] Number: Effective Repository Date:2017-12-25 12/25/2017 LACY L Primary LACY L [place] [id number] Insurance:MEDICARE PHILLIPSDOB: Community [address] PART A [facility] [id number] Hospital 110 BLDG Number: Repository [address] [place] [address] [id number]: (330) Date:2017-12-07 201-1216 () 12/25/2017 Secondary LACY L [place] Insurance:ANTHEMPolic PHILLIPSDOB: Community y Number: [id number] Hospital [id number] Repository Date:3291-98-06MH [address], [place] [address]HV: 12/25/2017 Tertiary NOT GIVENUNK [place] Insurance:SELF PAY [facility] Number: Effective Repository Date:2017-12-25 12/07/2017 LACY L Primary LACY L [place] [id number] Insurance:MEDICARE PHILLIPSDOB: Community [address] PART A [facility] [id number] Hospital 110 BLDG Number: Repository [address] [place] [address] [id number]: (330) Date:2017-11-061216 () 12/07/2017 Secondary NOT GIVENUNK [place] Insurance:SELF PAY [facility] Number: Effective Repository Date:2017-12-07 11/09/2017 LACY L Primary LACY L [place] [id number] Insurance:MEDICARE PHILLIPSDOB: Community [address] PART A [facility] [id number] Hospital 110 BLDG Number: Repository [address] [place] [address] [id number]: (330) Date:2017-08-171216 () 11/09/2017 Secondary NOT GIVENUNK [place] Insurance:SELF PAY [facility] Number: Effective Repository Date:2017-10-29 10/20/2017 LACY L Primary LACY L [place] [id number] Insurance:MEDICARE PHILLIPSDOB: Community [address] PART A [facility] [id number] Hospital 110 BLDG Number: Repository [address] [place] [address] [id number]: (330) Date:2017-10-201216 (HP) 10/20/2017 Secondary NOT GIVENUNK [place] Insurance:SELF PAY [facility] Number: Effective Repository Date:2017-10-20 10/19/2017 LACY L Primary LACY L [place] [id number] Insurance:MEDICARE PHILLIPSDOB: Community [address] PART A [facility] [id number] Hospital 110 BLDG Number: Repository [address] [place] [address] [id number]: (330) Date:2017-09-231216 () 10/19/2017 Secondary NOT GIVENUNK [place] Insurance:SELF PAY [facility] Number: Effective Repository Date:2017-09-23 10/19/2017 LACY L Primary LACY L [place] [id number] Insurance:MEDICARE PHILLIPSDOB: Community [address] PART A [facility] [id number] Hospital 110 BLDG Number: Repository [address] [place] [address] [id number]: (330) Date:2017-09-231216 () 10/19/2017 Secondary NOT GIVENUNK [place] Insurance:SELF PAY [facility] Number: Effective Repository Date:2017-10-19 09/23/2017 LACY L Primary LACY L [place] [id number] Insurance:MEDICARE PHILLIPSDOB: Community [address] [facility] [id number] Hospital 110 BLDG Number: Repository [address] [place] [address] [id number]: (330) Date:2017-08-191216 () 09/23/2017 Secondary NOT GIVENUNK [place] Insurance:SELF PAY [facility] Number: Effective Repository Date:2017-09-23 09/14/2017 LACY L Primary LACY L [place] [id number] Insurance:MEDICARE PHILLIPSDOB: Community [address] PART A [facility] [id number] Hospital 110 BLDG Number: Repository [address] [place] [address] [id number]: (330) Date:2017-09-141216 () 09/14/2017 Secondary NOT GIVENUNK [place] Insurance:SELF PAY [facility] Number: Effective Repository Date:2017-09-14 08/17/2017 LACY L Primary LACY L [place] [id number] Insurance:MEDICARE PHILLIPSDOB: Community [address] PART A [facility] [id number] Hospital 110 BLDG Number: Repository [address] [place] [address] [id number]: (330) Date:2017-05-181216 () 08/17/2017 Secondary NOT GIVENUNK [place] Insurance:SELF PAY [facility] Number: Effective Repository Date:2017-08-17 08/13/2017 LACY L Primary LACY L [place] [id number] Insurance:MEDICARE PHILLIPSDOB: Community [address] PART A [facility] [id number] Hospital 110 BLDG Number: [place] [id number]: (330) Date:2017-08-131216 () 08/13/2017 Secondary NOT GIVENUNK [place] Insurance:SELF PAY [facility] Number: Effective Repository Date:2017-08-13 07/29/2017 LACY L Primary LACY L [place] [id number] Insurance:MEDICARE PHILLIPSDOB: Community [address] PART A [facility] [id number] Hospital 110 BLDG Number: Repository [place] [id number]: (330) Date:2017-07-291216 () 07/29/2017 Secondary NOT GIVENUNK [place] Insurance:SELF PAY [facility] Number: Effective Repository Date:2017-07-29 07/28/2017 LACY L Primary LACY L [place] [id number] Insurance:MEDICARE PHILLIPSDOB: Community [address] PART A [facility] [id number] Hospital 110 BLDG Number: [address] [facility] [address] [facility] CENTERBRENTsweet [place] [id number]: (330) Date:2017-07-281216 (HP) 07/28/2017 Secondary NOT GIVENUNK [place] Insurance:SELF PAY [facility] Number: Effective Repository Date:2017-07-28 07/16/2017 LACY L Primary LACY L [place] [id number] Insurance:MEDICARE PHILLIPSDOB: Community [address] [facility] [id number] [address] BLDG Number: Repository [address] [place] [address] [id number]: ([phone]) Date:2017-05-181216 (HP) 07/16/2017 Secondary NOT GIVENUNK [place] Insurance:SELF PAY [facility] Number: Effective Repository Date:2017-05-18 06/23/2017 LACY L Primary LACY L [place] [id number] Insurance:MEDICARE PHILLIPSDOB: Community [address] [facility] [id number] [facility] [address] BLD[address] Number: Repository [address] [place] [address] [id number]: (330) Date:2017-06-236 () 06/23/2017 Secondary NOT GIVENUNK [place] Insurance:SELF PAY [facility] Number: Effective Repository Date:2017-06-23 06/22/2017 LACY L Primary LACY L [place] [id number] Insurance:MEDICARE PHILLIPSDOB: Community [address] [facility] [id number] [facility] [address] BLD[address] Number: Repository [address] [place] [address] [id number]: ([phone]) Date:2017-06-22 () 06/22/2017 Secondary NOT GIVENUNK [place] Insurance:SELF PAY [facility] Number: Effective Repository Date:2017-06-22 05/29/2017 LACY L Primary LACY L [place] [id number] Insurance:MEDICARE PHILLIPSDOB: Community [address] A [facility] [id number] [facility] [address] BLD[address] Number: Repository [address] [place] [address] [id number]: ([phone]) Date:2017-05-276 () 05/29/2017 Secondary NOT GIVENUNK [place] Insurance:SELF PAY [facility] Number: Effective Repository Date:2017-05-27 05/18/2017 LACY L Primary LACY L [place] [id number] Insurance:MEDICARE PHILLIPSDOB: Community [address] PART A [facility] [id number] [facility] [address] Number: Repository [address] [place] [address] [id number]: ([phone]) Date:2017-05-181216 () 05/18/2017 Secondary NOT GIVENUNK [place] Insurance:SELF PAY [facility] Number: Effective Repository Date:2017-05-18 05/18/2017 LACY L Primary LACY L [place] [id number] Insurance:MEDICARE PHILLIPSDOB: Community [address] PART A [facility] [id number] [facility] [address] Number: Repository [address] [place] [address] [id number]: ([phone]) Date:2017-05-05 [id number] () 05/18/2017 Secondary NOT GIVENUNK [place] Insurance:SELF PAY [facility] Number: Effective Repository Date:2017-05-18
== END 2018-05-03 23:59 ==
LOC: CR 06:30
PROVIDERS: Family Provider Internal Medicine; PCP Internal Medicine; Referring Provider Internal Medicine Cardiovascular Disease; Visit Provider Internal Medicine Cardiovascular Disease
DX: Z95.5 Presence of coronary angioplasty implant and graft (principal)
CPT/HCPCS: 93798

== ENCOUNTER 2018-05-31 06:30 | Outpatient (RCR) | payer MEDICARE, BC, SELFPAY ==
[2018-03-22 11:02] VITALS: BMI 32.7
[2018-05-04 00:21] VITALS: BP 106/58; BP 164/70; BMI 32.7
--- NOTE | 2018-05-28 08:59 | PCM.CR.ITP ---
General Information - General Information Admitting Diagnosis: PCI W/Stent - Education/Goals Cardiac Rehabilitation Goals: 1. Maintain the individual as the primary focus of care. 2. To improve the patient's quality of life. 3. Identification of cardiac risk factors and provide cardiac risk factor management. 4. Enhance the psychosocial status of the patient. 5. Reconditioning enough to allow the patient to resume customary activities. 6. Control symptoms of cardiac disease Scale for measuring improvement of personal goals: Enter appropriate number in Comments. 2 = Unchanged. 3 = Slightly Better. 4 = Moderate Improvement. 5 = Met my Goal Exercise - 60-Day Assessment - Visit Date of Eval: 05/28/18 Session #:: 21 - Stages of Change Stages of Change:: Action - Exercise Prescription Mode:: Treadmill, Airdyne, NuStep Frequency (x/week): 3 Duration:: 30-45 METs: 4.5 Target Heart Rate:: 124-131 Max HR 140 - Hypertension Resting Blood Pressure:: 122/78 Peak Exercise Blood Pressure:: 180/78 Medication Changes:: No - Intervention Home Exercise/Activity Goal:: Sitting Time <3 hrs/day - Education Goals:: Warm-up, RPE BRANDI Scale, S/S, Safe Exercise, Self-Monitoring - Exercise Program Goals Exercise Program Goals: Aerobic Activity >30 min, B/P <130/80 Nutrition - Initial Assessment - Program Goals Nutrition Program Goals: LDL <70. Total Cholesterol <200. HDL >45. Triglycerides <150. HgbA1C <7%. BMI <25 - Diabetes Do you monitor your blood sugar at home?: Yes - INSTRUCTED TO BEING GLUCMETER WITH HER TO CR Nutrition - 60-Day Assessment - Program Goals Nutrition Program Goals: LDL <70. Total Cholesterol <200. HDL >45. Triglycerides <150. HgbA1C <7%. BMI <25 - Visit Date of Eval: 05/28/18 - Stages of Change Stages of Change:: Action - Lipids Has the patient seen the dietitian?: No - Diabetes Diabetes:: Yes - Weight Management Weight:: 82.1 kg - Intervention Referral to dietitian:: No Referral to Diabetic Clinic:: No Will attend diet classes:: Yes - Education Attended class for:: Signs & symptoms of hypoglycemia, Signs & symptoms of hyperglycemia, Relate diabetes to coronary artery disease, Healthy eating Tobacco - Initial Assessment - Program Goals Tobacco Program Goals: Complete smoking cessation. Attend education classes. Improve Knowledge Test score - Learning Barriers Learning Barriers: Ready to Learn Tobacco - 60-Day Assessment - Program Goals Tobacco Program Goals: Complete smoking cessation. Attend education classes. Improve Knowledge Test score - Stage of Change Stages of Change:: Action - Learning Barriers Learning Barriers: Participates in education - Family Support Do you have family support?: Yes - Tobacco Use Tobacco Use: Non-smoker - Intervention Smoking Cessation Referral:: No Individual Education/Counseling:: No Education Schedule Given:: Yes - Education Attended class for:: Tobacco triggers, Coronary artery disease, Risk factors, Sexuality, Medical compliance, Cardiac A&P, Angina signs & symptoms Psychosocial - 60-Day Assess - Target Goals Target Goals: Assess presence or absence of depression. Using a valid screening tool, maximizes coping skills. Positive support system - Stages of Change Stages of Change:: Action - Psychosocial Test Tool Used:: HANDS Depression Questionnaire - Intervention PS - Interventions: Yes Attend Stress Management Classes, Yes Uses Stress Management Skills, No Referral to Mental Health, No Referral to [facility] Case Management, No Referral to Physician - Education Attended classes for:: Coping techniques, Signs & symptoms of depression, Stress management, Relaxation techniques - Assistive Devices Assistive Devices:: None Fall Risk Assessed:: Yes Patient Health Questionnaire 60-Day Re-eval Assessment 1. Little interest or pleasure in doing things: Not at all 2. Feeling down, depressed, or hopeless: Not at all 3. Trouble falling or staying asleep, or sleeping too much: Not at all 4. Feeling tired or having little energy: Not at all 5. Poor appetite or overeating: Not at all 6. Feeling bad about yourself -- or that you are a failure or have let yourself or your family down: Not at all 7. Trouble concentrating on things, such as reading the newspaper or watching television: Not at all 8. Moving or speaking so slowly that other people could have noticed. Or the opposite - being so fidgety or restless that you have been moving around a lot more than usual: Not at all 9. Thoughts that you would be better off , or of hurting yourself in some way: Not at all How difficult have these problems made it for you to do your work, take care of things at home, or get along with other people?: Not difficult at all Total Score: 0 Self-Efficacy 60-Day Re-eval Assessment We would like to know how confident you are in doing certain activities. Please select your confidence level for:: Select your confidence level for the following using the scale 1-10 where 1 is not at all confident and 10 is totally confident. Your score is the average of all 6 responses. Fatigue: How confident are you that you can keep the fatigue caused by your disease from interfering with the things you want to do? Select Number: 10 Physical Discomfort or Pain: How confident are you that you can keep the physical discomfort or pain of your disease from interfering with the things you want to do? Select Number: 10 Emotional Distress: How confident are you that you can keep the emotional distress caused by your disease from interfering with the things you want to do? Select Number: 10 Other Symptoms or Health Problems: How confident are you that you can keep other symptoms or health problems from interfering with the things you want to do? Select Number: 10 Different Tasks and Activities: How confident are you that you can do the different tasks and activities needed to manage your health condition so as to reduce your need to see a doctor? Select Number: 10 Medication: How confident are you that you can do things other than just taking medication to reduce how much your illness affects your everyday life? Select Number: 10 Total Score:: 10
[2018-05-28 09:12] VITALS: BP 122/78; BP 180/78
== END 2018-06-03 23:59 ==
LOC: CR 06:30
PROVIDERS: Family Provider Internal Medicine; PCP Internal Medicine; Referring Provider Internal Medicine Cardiovascular Disease; Visit Provider Internal Medicine Cardiovascular Disease
DX: Z95.5 Presence of coronary angioplasty implant and graft (principal)
CPT/HCPCS: 93798

== ENCOUNTER 2018-06-01 09:00 | Outpatient (RCR) | payer MEDICARE, BC, SELFPAY ==
[2018-03-22 11:02] VITALS: BMI 32.7
[2018-05-10 09:38] VITALS: BMI 33.3
== END 2018-06-03 23:59 ==
LOC: DC 09:00
PROVIDERS: Family Provider Internal Medicine; PCP Internal Medicine; Visit Provider Internal Medicine Cardiovascular Disease
DX: E11.9 Type 2 diabetes mellitus without complications (principal); E66.9 Obesity, unspecified; Z68.32 Body mass index [BMI] 32.0-32.9, adult; I25.10 Atherosclerotic heart disease of native coronary artery without angina pectoris; Z71.3 Dietary counseling and surveillance
CPT/HCPCS: 97802; 97803; G0108

== ENCOUNTER 2018-06-21 19:03 | Emergency (ER) | payer MEDICARE, BC, SELFPAY ==
[2018-03-22 11:02] VITALS: BMI 32.7
[2018-05-10 09:38] VITALS: BMI 33.3
[2018-06-21 19:04] VITALS: BP 166/88; PULSE 100; RESP 18; TEMP 36.8; O2SAT 100; BMI 33.5
--- NOTE | 2018-06-21 19:06 | ED.RN ---
PULLED OLD EKGS FOR CPS IN ROOM
--- NOTE | 2018-06-21 19:10 | EKG12_ITS ---
Test Reason : CP Blood Pressure : / mmHG Vent. Rate : 099 BPM Atrial Rate : 099 BPM P-R Int : 138 ms QRS Dur : 082 ms QT Int : 360 ms P-R-T Axes : 061 024 051 degrees QTc Int : 462 ms Normal sinus rhythm Normal ECG Confirmed by MILADY ZUNIGA, TRUDY ([id number]), order editor NITISH CLARKE ([id number]) on 06/23/2018 9:54:23 AM Referred By: YANG Confirmed By:TRUDY HENNING MD
--- NOTE | 2018-06-21 19:15 | RAD_ITS ---
STUDY: X-RAY CHEST REASON FOR EXAM: Female, 67 years old. Pain TECHNIQUE: Single AP portable view of the chest. COMPARISON: March 20, 2018 chest x-ray FINDINGS: There is stable elevation of the right hemidiaphragm. There is no demonstrated pleural abnormality. There is a left-sided cardiac stent. Normal mediastinum and allie. Normal visualized pulmonary arteries. Normal visualized aortic arch and descending thoracic aorta. Normal visualized thoracic spine. There is degenerative osteoarthritis of the bilateral shoulders. There is no demonstrated abnormality of the visualized soft tissue structures of the upper abdomen. RAD/Chest 1 View (Portable) IMPRESSION: Stable chest no evidence of acute focal infiltrate. Electronically Signed: Tessa Amador MD at 19:42 EST Tel , Service support ,
[2018-06-21 19:24] VITALS: O2SAT 100
[2018-06-21 19:28] LABS: Absolute Lymphocyte Count 2.26 X10^3/ul (0.83-4.51); Absolute Neutrophil Count 2.6 X10^3/uL (2.0-7.7); Basophil# 0.01 X10^3/uL; Basophil% 0.2 % (0-1); Eosinophils% 1.9 % (0-5); Hematocrit 38.2 % (37-47); Hemoglobin 12.3 g/dl (12.0-15.0); Lymphocyte # 2.26 X10^3/ul (4.0); Mean Corp Hgb Conc 32.2 g/gl (32-36); Mean Corpuscular Hgb 30.5 pg (27.0-32.0); Mean Corpuscular Volume 94.8 fL (81-99); Monocyte# 0.34 X10^3/uL; Monocyte% 6.5 % (0-10); Neutrophil # 2.55 X10^3/uL (2.7-7.7); Neutrophil % 48.4 % (47-70); Platelet Count 221 K/mm3 (150-450); RBC Distribution Width CV 13.4 % (11.6-14.6); RBC Distribution Width SD 46.3 fl (35.1-43.9); Red Blood Count 4.03 M/mm3 (4.2-5.4); White Blood Count 5.3 K/mm3 (4.4-11.0)
[2018-06-21 19:35] LABS: Prothrombin Time (Protime)PT. 12.8 SECONDS (11.7-14.9)
[2018-06-21 19:46] LABS: POSITIVE COUNT NO; POSITIVE DIFFERENTIAL NO; POSITIVE MORPHOLOGY NO
--- NOTE | 2018-06-21 19:49 | ED.DCSUM_ITS ---
History of Present Illness Chief Complaint: Chest Pain Informant: Patient Onset: Days - 3 Context: Gradual Onset Timing: Intermittent Quality: burning, throbbing Location: left of sternum. radiation into left back. Current Severity: Moderate Maximum Severity: Severe Worsened by: deep inspiration somewhat Relieved by: nothing in particular Associated Symptoms: sweats. sob mild. vomited couple days ago. tingling in LUE. Narrative: No recent URI symptoms. States these are similar symptoms, but not as severe, as when she needed cardiac stent placed a couple months ago. States she has been compliant with her medications, including her aspirin which she took earlier today. She states the left arm discomfort has not resolved at all in the past 3 days, but the chest discomfort along with back discomfort has been intermittent, lasting hours at a time. Does not necessarily seem exertional or positional. It does seem to get a little worse with deep inspiration. No recent leg pain or swelling. No recent travel or immobilization. No history of DVT/PE. On no anticoagulant. Prior similar symptoms: Yes - w/ PCI/stent 2 mos ago - Past Medical History (1) Atherosclerotic heart disease of [place] coronary artery without angina pectoris Status: Chronic Comment: YESENIA to mid LAD (3.0 X 38 Promus Synergy); YESENIA to mid ISR (2.5 X 38 Promus Synergy); and YESENIA to proximal RCA (2.5 X12 Promus Synergy) 03/22/18 (2) Chronic diastolic CHF (congestive heart failure) Status: Chronic (3) Essential (primary) hypertension Status: Chronic (4) Hyperlipidemia Status: Chronic Past Medical History - Allergies and Home Meds Allergies/Adverse Reactions: Allergies prednisone Adverse Reaction (Verified 06/21/18 19:07) Nausea Primary Care Physician: Winston Johnson MD [STAFF PHYSICIAN] - (Call tomorrow to have cardiac stress test scheduled) Kannan Garcia MD [Primary Care Provider] - Surgical History: hysterectomy, - - Cardiac stent Smoking Status: Never smoker Drugs: None - Family History Maternal Family History: Family History (Last Reviewed 04/16/18 @ 08:50 by Winston Johnson MD) Grandmother Alcoholism Cancer Arthritis Mother Alcoholism Diabetes blood clots Hypertension Grandfather Heart disease Sister Thyroid disorder Other Breast cancer Cervical cancer Colon cancer Family History: Reports: Diabetes - age 60 Paternal Family History: Family History (Last Reviewed 04/16/18 @ 08:50 by Winston Johnson MD) Grandmother Alcoholism Cancer Arthritis Mother Alcoholism Diabetes blood clots Hypertension Grandfather Heart disease Sister Thyroid disorder Other Breast cancer Cervical cancer Colon cancer Family History: Reports: Unknown Review of Systems General: Reports: Malaise, Sweats. Denies: Chills, Fever Eyes: Denies: Visual changes - bilaterally, Diplopia ENT: Denies: Rhinorrhea, Sore throat Cardiovascular: Reports: Chest pain. Denies: Palpitations, Heart racing Respiratory: Reports: Dyspnea. Denies: Cough, Dyspnea on exertion Gastrointestinal: Reports: Nausea, Vomiting. Denies: Abdominal pain, Diarrhea, Melena, Hematochezia Genitourinary: Denies: Dysuria, Hematuria, Frequency Musculoskeletal: Reports: Extremity Pain - LUE. Denies: Neck pain, Back pain, Swelling Skin: Denies: Rash, Wounds Neurological: Denies: Headache, Weakness, Numbness Physical Exam Vital Signs/Narrative: Vital Signs Temp Pulse Resp BP Pulse Ox 06/21/18 19:24 100 06/21/18 19:04 98.3 F 100 18 166/88 H 100 Inital Vital Signs reviewed: Yes General: Well nourished, Well developed, Obese, No Acute Distress Head: Normocephalic, Atraumatic Eyes: Perrl, EOMI ENT: Moist mucous membranes, No rhinorrhea Neck: Supple, Nontender Cardiovascular: Regular rate, Regular rhythm, No murmurs, Normal S1, Normal S2, - - Equal bilateral 2+/4 radial pulses Respiratory: No distress, CTA bilaterally, Chest tenderness - Mid chest, just left of sternum, reproduces some of patient's pain Abdomen: Soft, Nontender, Nondistended, Normal bowel sounds Back: Nontender, Normal Inspection Extremities: Nontender, No edema. Negative for: Calf Tenderness Skin: Normal color, No rash Neurological: Alert, Oriented x3, Cranial nerves II-XII grossly intact, Normal Strength, Normal Sensation Psychological: Normal affect, Normal Mood Diagnostic/Tx/Re-eval Impressions Chest X-Ray 06/21/18 19:15 IMPRESSION: Stable chest no evidence of acute focal infiltrate. Electronically Signed: Tessa Amador MD at 19:42 EST Tel , Service support , 06/21/18 19:15 Chest 1 View (Portable) [RAD] Stat Laboratory Results 06/21/18 06/21/18 06/21/18 19:15 19:15 19:15 WBC 5.3 RBC 4.03 L Hgb 12.3 Hct 38.2 MCV 94.8 MCH 30.5 MCHC 32.2 RDW 13.4 RDW Differential 46.3 H Plt Count 221 MPV 10.0 Immature Gran % (Auto) 0.000 Neut % (Auto) 48.4 Lymph % (Auto) 43.0 H [place] % (Auto) 6.5 Eos % (Auto) 1.9 Baso % (Auto) 0.2 Absolute Neuts (auto) 2.6 Absolute Lymphs (auto) 2.26 Total Counted Not Reportable PT 12.8 INR 1.0 D-Dimer Quant (PE/DVT) Sodium 140 Potassium 4.2 Chloride 108 H Carbon Dioxide 27.0 Anion Gap 5 BUN 21 H Creatinine 0.91 Estim Creat Clear Calc 48.75 Est GFR (MDRD) Af Amer 80 Est GFR (MDRD) Non-Af 66 BUN/Creatinine Ratio 23.1 H Glucose 88 Calcium 8.9 Troponin I < 0.015 06/21/18 19:15 WBC RBC Hgb Hct MCV MCH MCHC RDW RDW Differential Plt Count MPV Immature Gran % (Auto) Neut % (Auto) Lymph % (Auto) [place] % (Auto) Eos % (Auto) Baso % (Auto) Absolute Neuts (auto) Absolute Lymphs (auto) Total Counted PT INR D-Dimer Quant (PE/DVT) 0.35 Sodium Potassium Chloride Carbon Dioxide Anion Gap BUN Creatinine Estim Creat Clear Calc Est GFR (MDRD) Af Amer Est GFR (MDRD) Non-Af BUN/Creatinine Ratio Glucose Calcium Troponin I - Rhythm Strip Rhythm Strip: Sinus Tach Rate: 100 Ectopy: None - EKG Initial EKG Interpretation: Sinus Rhythm, No Acute Injury Pattern, - - Normal EKG. Prior: Unchanged - Medical Decision Making Workup is negative/normal, including EKG, d-dimer, and troponin. Of note, patient states that although her chest was tender, it was not reproducing the symptoms that she was having. Given that she has been having symptoms all weekend, Dr. Johnson agrees that she may be discharged home since she desires to be, but advised that she call the office in the morning to have a outpatient cardiac stress test scheduled. After then receiving a small dose of toradol and a GI cocktail, she did have improvement. I do not think she has ACS given the symptoms all weekend / 3days, and negative/normal cardiac testing. Janes syndrome is in the differential, but unable to prove or disprove at this time. ED Disposition - Plan for ED Patient: Disposition: Home or Assisted Living Diagnosis: Chest pain, unspecified Instructions: ED Chest Pain Atypical Unkn Cause Referrals: Kannan Garcia MD [Primary Care Provider] - Winston Johnson MD [STAFF PHYSICIAN] - (Call tomorrow to have cardiac stress test scheduled)
[2018-06-21 20:01] LABS: Anion Gap 5 (5-15); BUN 21 mg/dL (7-18); BUN/Creat Ratio 23.1 RATIO (10-20); Calcium,Total 8.9 mg/dL (8.5-10.1); Chloride 108 mmol/L (98-107); Creatinine, Serum 0.91 mg/dL (0.55-1.02); EST Glomerular Filtration Rate 66 mL/min (>60); Est Glom Filt Rate - Afr Amer 80 mL/min (>60); Estimated Creatinine Clearance 48.75 ml/min; Glucose 88 mg/dL (74-106); Potassium 4.2 mmol/L (3.5-5.1); Sodium Level 140 mmol/L (136-145)
[2018-06-21] MEDS: Aspirin 81 MG TAB.CHEW 162 MG PO (20:05)
[2018-06-21 20:06] VITALS: BP 139/85; PULSE 87; PULSE 88; RESP 17; O2SAT 100
[2018-06-21 20:36] VITALS: BP 127/73; PULSE 87; RESP 19; O2SAT 100
[2018-06-21 20:37] LABS: D-Dimer Quantitative (DVT/PE) 0.35 FEU/ug/m (0.27-0.49)
[2018-06-21 21:01] VITALS: BP 130/75; PULSE 91; RESP 17; O2SAT 100
[2018-06-21] MEDS: Mag Hydrox/Al Hydrox/Simeth 30 ML UDC PO (22:20)
[2018-06-21] MEDS: Ketorolac 15 MG/ML Vial IV (22:20)
[2018-06-21 22:40] VITALS: BP 141/78; PULSE 82; PULSE 84; RESP 18; O2SAT 99
== END 2018-06-21 22:44 | disposition home or self-care (01) ==
PROVIDERS: Emergency Provider Emergency Medicine; Family Provider Internal Medicine; PCP Internal Medicine
DX: R07.9 Chest pain, unspecified (principal); R11.2 Nausea with vomiting, unspecified; I11.0 Hypertensive heart disease with heart failure; I50.32 Chronic diastolic (congestive) heart failure; I25.10 Atherosclerotic heart disease of native coronary artery without angina pectoris; E78.5 Hyperlipidemia, unspecified; E66.9 Obesity, unspecified; Z79.84 Long term (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 of oral hypoglycemic drugs; Z79.02 Long term (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 of antithrombotics/antiplatelets; Z79.82 Long term (current) use of aspirin; Z79.899 Other long term (current) drug therapy; Z95.5 Presence of coronary angioplasty implant and graft
CPT/HCPCS: 71045; 80048; 84484; 85025; 85379; 85610; 93005; 96374; 99285; A4216

== ENCOUNTER 2018-06-23 08:00 | Outpatient (RCR) | payer MEDICARE, SELFPAY ==
[2018-03-22 11:02] VITALS: BMI 32.7
[2018-05-10 09:38] VITALS: BMI 33.3
== END 2018-06-23 23:59 ==
LOC: DC 08:00
PROVIDERS: Family Provider Internal Medicine; PCP Internal Medicine; Visit Provider Internal Medicine Cardiovascular Disease
DX: E11.9 Type 2 diabetes mellitus without complications (principal); E66.9 Obesity, unspecified; Z68.32 Body mass index [BMI] 32.0-32.9, adult; I25.10 Atherosclerotic heart disease of native coronary artery without angina pectoris; Z71.3 Dietary counseling and surveillance
CPT/HCPCS: 97803; G0108

== ENCOUNTER → 2018-06-28 08:36 | Outpatient (CLI) | payer MEDICARE, BC, SELFPAY ==
[2018-03-22 11:02] VITALS: BMI 32.7
[2018-06-28 08:17] VITALS: BMI 33.5
[2018-06-28 08:40] LABS: Bacteria 0 SEEN /hpf (None Seen); Mucous, Urine 0 SEEN /hpf (<or=2+); Red Blood Cells-Urine 0 SEEN /hpf (0-5); Squamous Epithelial Cells - UA 0 SEEN /hpf (5-10)
[2018-06-28 12:38] LABS: Color, Urine Yellow (Yellow); Glucose, Dipstick Normal (Normal); Ketone-Dipstick Negative (Negative); Leukocyte Esterase-Dipstick 25 /ul (Negative); Nitrite-Dipstick Negative (Negative); Occult Blood-Urine Negative /ul (Negative); Protein-Dipstick Negative (Negative); Urine Bilirubin Dipstick Negative (Negative); Urine Clarity Clear (Clear); Urine Urobilinogen 1 mg/dl (Normal); Urine pH 6.5 (5.0 - 8.0)
[2018-06-28 12:56] LABS: White Blood Cells 0-5 SEEN /hpf (0-5)
[2018-06-28 13:11] LABS: Cholesterol 164 mg/dL (200); High Density Lipoprotein 45 mg/dL; Triglycerides 77 mg/dL; Very Low Density Lipoprotein 15 mg/dL (5-40)
[2018-06-28 13:14] LABS: Hemoglobin A1c 7.4 % (4.2-6.3)
[2018-06-28 13:17] LABS: Microalbumin,Random Urine 8.6 mg/L (NO RANGE EST.); Microalbumin:Creatinine Ratio 6.8 mg/g CRE (<30 mg/g CRE)
== END ==
PROVIDERS: Family Provider Internal Medicine; PCP Internal Medicine; Visit Provider Internal Medicine
DX: E11.9 Type 2 diabetes mellitus without complications (principal); I25.10 Atherosclerotic heart disease of native coronary artery without angina pectoris; R35.0 Frequency of micturition
CPT/HCPCS: 36415; 80061; 81001; 82043; 82570; 83036

== ENCOUNTER 2018-06-30 11:30 | Outpatient (RCR) | payer MEDICARE, BC, SELFPAY ==
[2018-03-22 11:02] VITALS: BMI 32.7
[2018-05-10 09:38] VITALS: BMI 33.3
[2018-06-04 00:52] VITALS: BP 122/78; BP 180/78
[2018-06-28 08:17] VITALS: BMI 33.5
== END 2018-07-01 23:59 ==
LOC: CR 11:30
PROVIDERS: Family Provider Internal Medicine; PCP Internal Medicine; Referring Provider Internal Medicine Cardiovascular Disease; Visit Provider Internal Medicine Cardiovascular Disease
DX: Z95.5 Presence of coronary angioplasty implant and graft (principal)
CPT/HCPCS: 93798

== ENCOUNTER → 2018-07-05 08:41 | Outpatient (CLI) | payer MEDICARE, BC, SELFPAY ==
[2018-03-22 11:02] VITALS: BMI 32.7
[2018-07-05 08:40] VITALS: BMI 33.5
--- NOTE | 2018-07-05 08:53 | RAD_ITS ---
STUDY: X-RAY - LEFT SHOULDER REASON FOR EXAM: Female, 67 years old. Pain for 2 weeks. TECHNIQUE: 4 view(s) of the shoulder. COMPARISON: None. FINDINGS: There is moderate degenerative arthrosis of the glenohumeral articulation. There is degenerative arthrosis of the acromioclavicular joint without inferior osseous spur formation. Normal acromion. Normal humeral head and visualized proximal humerus. The soft tissue structures are unremarkable. Normal visualized pulmonary apex. RAD/Shoulder min 2 Views IMPRESSION: Moderate degenerative changes of the glenohumeral joint and AC joint with no underlying spurring of the AC joint. Electronically Signed: Tomas Benz DO at 21:06 EST , Service support ,
== END ==
PROVIDERS: Family Provider Internal Medicine; PCP Internal Medicine; Referring Provider Internal Medicine; Visit Provider Internal Medicine
DX: M25.512 Pain in left shoulder (principal); R35.0 Frequency of micturition
CPT/HCPCS: 73030; 87086; 87088

== ENCOUNTER → 2018-07-06 06:25 | Outpatient (CLI) | payer MEDICARE, BC, SELFPAY ==
[2018-03-22 11:02] VITALS: BMI 32.7
[2018-06-21 19:04] VITALS: BMI 33.5
[2018-07-05 08:40] VITALS: BMI 33.5
--- NOTE | 2018-07-06 09:57 | STRESSREP ---
Stress Test Report Date: 07-06-18 Procedure: Exercise tolerance test/imaging study Indications: chest pain; CAD; PCI Consent: Per the patient Procedure: The patient exercised on a Eldon protocol for 7 minutes and 15 seconds completing Stage II and 1 minute and 15 seconds of Stage III achieving a peak heart rate of 133 bpm (85 % predicted maximal heart rate) with a peak blood pressure 158/80 mmHg and a peak MET capacity of 8 METs. The baseline ECG demonstrated normal sinus rhythm . The peak exercise ECG demonstrated no obvious ECG changes . There were no cardiac dysrhythmias pretest, during exercise, or recovery. The functional capacity was considered average . There was no complaint of chest discomfort during exercise or recovery. The examination was discontinued secondary to dyspnea . Impression: 1. Technically adequate (percent predicted maximal heart rate greater than 85%) exercise tolerance test 2. Peak exercise ECG with no obvious ECG changes 3. There were no cardiac dysrhythmias pretest, during exercise, or recovery 4. Nuclear images pending Myocardial perfusion imaging study: Technique: The patient was injected with 14.6 mCi of technetium 99m Cardiolite and subsequently rest SPECT Cardiolite nuclear imaging was obtained in the horizontal long, vertical long, and short axis views. The patient exercised on a Eldon protocol for 7 minutes and 15 seconds completing Stage II and 1 minute and 15 seconds of Stage III achieving a peak heart rate of 133 bpm (85 % predicted maximal heart rate) with a peak blood pressure 158/80 mmHg and a peak MET capacity of 8 METs. The patient was injected with 43.8 mCi of technetium 99m Cardiolite and subsequently stress SPECT Cardiolite nuclear imaging was obtained in the horizontal long, vertical long, and short axis views. A gated Cardiolite study at peak stress was obtained. Interpretation: Rest and stress SPECT Cardiolite nuclear imaging status post realignment, normalization, and attenuation correction, demonstrates the appearance of relative uniform tracer uptake and myocardial perfusion appearing within normal limits. There is end systolic thickening and brightening. The gated Cardiolite study demonstrates myocardial thickening and inward wall motion. The reported LVEF is 69 %. Impression: 1. Rest and stress SPECT Cardiolite nuclear imaging demonstrate relative uniform tracer uptake and myocardial perfusion appearing within normal limits. 2. The gated Cardiolite study reports an LVEF of 69 %. This note was generated with [employer] software. It may contain incorrect words, spelling, and punctuation that were not noted in checking the note before signing.
== END ==
PROVIDERS: Family Provider Internal Medicine; PCP Internal Medicine; Referring Provider Internal Medicine Cardiovascular Disease; Visit Provider Internal Medicine Cardiovascular Disease
DX: R07.9 Chest pain, unspecified (principal); S20.319A Abrasion of unspecified front wall of thorax, initial encounter; X58.XXXA Exposure to other specified factors, initial encounter; Y93.9 Activity, unspecified; Y92.9 Unspecified place or not applicable; Y99.9 Unspecified external cause status
CPT/HCPCS: 78452; 93017; A9500; A4216

== ENCOUNTER 2018-07-16 06:30 | Outpatient (RCR) | payer MEDICARE, BC, SELFPAY ==
[2018-03-22 11:02] VITALS: BMI 32.7
[2018-07-02 00:44] VITALS: BP 122/78; BP 180/78; BMI 33.3
== END 2018-08-01 23:59 ==
LOC: CR 06:30
PROVIDERS: Family Provider Internal Medicine; PCP Internal Medicine; Referring Provider Internal Medicine Cardiovascular Disease; Visit Provider Internal Medicine Cardiovascular Disease
DX: Z95.5 Presence of coronary angioplasty implant and graft (principal)
CPT/HCPCS: 93798

== ENCOUNTER 2018-07-20 07:30 | Outpatient (RCR) | payer MEDICARE, BC, SELFPAY ==
[2018-03-22 11:02] VITALS: BMI 32.7
[2018-06-28 08:17] VITALS: BMI 33.5
[2018-07-05 08:40] VITALS: BMI 33.5
--- NOTE | 2018-07-07 09:26 | HP.PTEVAL_ITS ---
Patient's Visit Information LACY ALVARADO is a 67 year old F referred to Physical Therapy by Kannan Garcia MD with a diagnosis of Left Shoulder Pain. Date of Evaluation: 07/07/18 Physical Therapist: Sandra Mazariegos DPT - Visit Plan Frequency: 2x /Week Duration: 4 Weeks Plan: Scapular s/s and ROM- possible cervical spine involvement - Subjective Findings: Patient reports that she is having problems with her left shoulder for about 2-3 weeks. Feels like she gets some numbness in her hand and pain in the shoulder- the pain is located in the anterior shoulder and radiates to the hand. The pain is constant. Worst: 02/10 Agg: unknown. 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 Eases: laying it down to the side. Best: 06/13. Denies neck pain, blurred vision, diziness and WALL. Decreased lime mixer tender strength but is not dropping things. Left Hand dominate. X-ray of shoulder shows OA. Does have N/T in the arm and then just numbness is the whole hand. Describes the pain as sharp/shooting pain. No injectionos or medications for the shoulder. Sleep: distrurbed- has to move it around to get the feeling back- side sleeper. Busy person she is moving all the time- is not a sitter. PMHx/Meds:no changes. - Objective Posture: FH, RS, increased kyphosis- can correct with verbal and tacile cues but does not maintain. Observation: increased kyphosis at CT junction. Gait: no deviation- good arm swing and trunk rotation. Palpation: tender along medial distal border of the scapula, the infraspinatus, bicipital groove (produces tin gling). ROM: Cervical: WFL but reports discomfort with rotation to the right and SB to the right. Shoulder: Flexion: 150 degrees, Abd: 160 degrees, IR: to belt line, ER: 50 degrees, Elbow/Wrist/hand: WNL. PROM: WFL in all planes with discomfort and guarding. Strength: Scap: poor, Shoulder: 4/5 throughout available range- does report discomfort Elbow: 4+/5, Wrist: 4+/5, Incident Response Lead: left: 30 lbs of force x 3 trials Right: 70 lbs of force x3 trials. Special Test: distraction: no change in s/s, Compression:no change in s/s. Impingment: positive, Empty Can: negative - Goals Goal 1:: Patient will be I with HEP and progression Goal Time Frame: 4-6 Weeks Goal 2:: Patient will demo full AROM of the left shoulder Goal Time Frame: 4-6 Weeks Goal 3:: Patient will maintain proper posture t/o tx session to demo increased core s/s. Goal Time Frame: 4-6 Weeks Goal 4:: Patient will report no N/T for 1 week Goal Time Frame: 4-6 Weeks - Rehabilitation Potential Physical Therapy Diagnosis: Patient presents with hypomobility- she has decreased ROM, strength and muscular endurance leading to increased pain and difficulty with ADL's. Rehabilitation Potential: Fair - Anticipated Interventions Therapeutic Exercise to Include: Strength training, Endurance training, Balance training, Agility training, Body mechanics, Postural training, Passive ROM, Active ROM, Scapular Strength/Stabilization For the Purpose of:: To improve performance and independence with ADL's TENS: Yes Cryotherapy (ice pack, ice massage): Yes Thermo therapy (hot pack): Yes Ultrasound (thermal/non thermal): Yes For the Purpose of:: To decrease pain Thank you for the opportunity to evaluate your patient. For Medicare and Medicare HMO plans, please review the plan of care and approve it. It will need to be FAXED BACK to us at [phone] for Medicare purposes. For Medicare only, by signing this I certify the plan of care. Please let me know if there are questions or concerns regarding this plan of care. Physician Signature: Date:
--- NOTE | 2018-09-02 14:01 | HP.PT.NRP ---
HP - Discharge Summary (1) - Patient Information LACY ALVARADO was seen in my office for initial evaluation on 07/07/18. The following Plan of Care was established for this patient: Initial Frequency: 2x /Week Initial Duration: 4 Weeks - Anticipated Interventions Therapeutic Exercise to Include: Strength training, Endurance training, Balance training, Agility training, Body mechanics, Postural training, Passive ROM, Active ROM, Scapular Strength/Stabilization For the Purpose of:: To improve performance and independence with ADL's TENS: Yes Cryotherapy (ice pack, ice massage): Yes Thermo therapy (hot pack): Yes Ultrasound (thermal/non thermal): Yes For the Purpose of:: To decrease pain This patient was last seen in our office . Pertinent comments regarding their Physical therapy will appear below: Patient has not attended physical therapy in over 30 days- appropriate to be d/c at this time and return to MD for further evaluation. At this point I will be discontinuing this patient from physical therapy. I would be happy to see this patient again in the future if found appropriate by the physician. Thank you! Sandra Mazariegos DPT
== END 2018-07-20 19:00 | disposition home or self-care (01) ==
LOC: PT 07:30
PROVIDERS: Family Provider Internal Medicine; PCP Internal Medicine; Referring Provider Internal Medicine; Visit Provider Internal Medicine
DX: M25.512 Pain in left shoulder (principal)
CPT/HCPCS: 97110; 97161

== ENCOUNTER 2018-09-18 15:10 | Inpatient (IN) | payer MEDICARE, SELFPAY ==
[2018-03-22 11:02] VITALS: BMI 32.7
[2018-08-02 13:20] VITALS: BMI 33.5
[2018-09-18] VITALS (21 sets, daily range): BP systolic 101–175; BP diastolic 52–96; PULSE 91–134; RESP 15–23; TEMP 37.1–37.4; O2SAT 96–100; BMI 33.0; BMI 33.1
--- NOTE | 2018-09-18 15:27 | EKG12_ITS ---
Test Reason : CP Blood Pressure : / mmHG Vent. Rate : 127 BPM Atrial Rate : 127 BPM P-R Int : 142 ms QRS Dur : 068 ms QT Int : 298 ms P-R-T Axes : 057 012 044 degrees QTc Int : 433 ms Sinus tachycardia Possible Left atrial enlargement Abnormal ECG Confirmed by RADHIKA ZUNIGA, KELLY ([id number]), editor managing newspaper NITISH CLARKE ([id number]) on 09/20/2018 3:46:16 PM Referred By: SHA Confirmed By:KELLY GARRIDO MD
--- NOTE | 2018-09-18 15:29 | RAD_ITS ---
STUDY: X-RAY CHEST REASON FOR EXAM: Female, 67 years old. Nausea and shortness of breath TECHNIQUE: AP COMPARISON: 06/21/2018 FINDINGS: EKG leads project over the chest. The lungs are clear and expanded. There is no demonstrated pleural abnormality. Normal size heart. Normal mediastinum and allie. Normal visualized pulmonary arteries. Normal visualized aortic arch and descending thoracic aorta. Normal visualized thoracic spine. Normal visualized ribs, clavicles, and shoulders. There is no demonstrated abnormality of the visualized soft tissue structures of the upper abdomen. RAD/Chest 1 View (Portable) IMPRESSION: Stable, nonacute portable x-ray examination of the chest. Electronically Signed: Don Haines MD at 15:47 EDT , Service support ,
--- NOTE | 2018-09-18 15:58 | ED.VIS.GEN ---
History of Present Illness Chief Complaint: Chest Pain Informant: Patient Onset: Today Narrative: Patient presents for continuous waxing waning left-sided chest pain since 5 AM this morning. Reports symptoms as a squeezing sensation. States had transient symptoms 2 days ago. Reports pain down left arm and dyspnea along with headache symptoms. No current nausea. Reports similar symptoms when she had stents placed last year in March. He is on aspirin and Plavix however did not take her medications today. She is a diabetic, hypercholesterolemia and hypertension. No tobacco history. Grandmother with coronary disease. Patient denies history of CA. No recent travel, surgeries, or immobilizations. No history of PE or DVT. States mild diarrhea today. No vomiting. Review of records from cath report March 2018, noted EF of 70, there was a mid LAD lesion of 75% distal LAD lesion of 70%. There is a mid RCA 50% and a right PDA of 70%. Patient was stented to the mid LAD which also had an in-stent restenosis. She had a proximal RCA stent. From her records and description from history in March she is presenting with exact same symptoms, she had serial enzymes along with a stress test that was negative however with persistent symptoms she was sent for diagnostic cath with findings above. Prior similar symptoms: Yes Past Medical History - Allergies and Home Meds Allergies/Adverse Reactions: Allergies prednisone Adverse Reaction (Verified 07/16/18 08:58) Nausea Primary Care Physician: Kannan Garcia MD [Primary Care Provider] - Surgical History: hysterectomy, - Smoking Status: Never smoker - Family History Maternal Family History: Family History (Last Reviewed 08/02/18 @ 13:19 by Alison Alcala) Grandmother Alcoholism Cancer Arthritis Mother Alcoholism Diabetes blood clots Hypertension Grandfather Heart disease Sister Thyroid disorder Other Breast cancer Cervical cancer Colon cancer Family History: Reports: Diabetes - age 60 Paternal Family History: Family History (Last Reviewed 08/02/18 @ 13:19 by Alison Alcala) Grandmother Alcoholism Cancer Arthritis Mother Alcoholism Diabetes blood clots Hypertension Grandfather Heart disease Sister Thyroid disorder Other Breast cancer Cervical cancer Colon cancer Family History: Reports: Unknown Review of Systems General: Denies: Chills, Fever, Sweats Eyes: Denies: Visual changes - bilaterally, Diplopia ENT: Denies: Rhinorrhea, Sore throat Cardiovascular: Reports: Chest pain. Denies: Palpitations Respiratory: Reports: Dyspnea. Denies: Cough, Dyspnea on exertion Gastrointestinal: Denies: Abdominal pain, Nausea, Vomiting, Diarrhea, Melena, Hematochezia Genitourinary: Denies: Dysuria, Hematuria, Frequency Musculoskeletal: Denies: Back pain, Extremity Pain Skin: Denies: Rash, Wounds Neurological: Denies: Headache, Weakness, Numbness Physical Exam Vital Signs/Narrative: Vital Signs Temp Pulse Resp BP Pulse Ox 09/18/18 15:22 131 H 18 149/93 H 100 09/18/18 15:11 99.4 F H 18 175/90 H 96 Inital Vital Signs reviewed: Yes General: Well nourished, Well developed, No Acute Distress Head: Normocephalic, Atraumatic Eyes: Perrl, EOMI ENT: Moist mucous membranes, No rhinorrhea Neck: Supple, Nontender Cardiovascular: Regular rate, Regular rhythm, No murmurs, Tachycardia Respiratory: No distress, CTA bilaterally, Chest nontender Abdomen: Soft, Nontender, Nondistended, Normal bowel sounds Back: Nontender, Normal Inspection Extremities: Nontender, No edema Skin: Normal color, No rash Neurological: Alert, Oriented x3, Cranial nerves II-XII grossly intact, Normal Strength, Normal Sensation Psychological: Normal affect, Normal Mood Diagnostic/Tx/Re-eval Chest X-Ray - ED: 1 View, Read by ED Physician, Read by Radiologist, No Acute Disease - EKG Initial EKG Interpretation: Sinus Rhythm, Sinus Tachycardia, - - Sinus tachycardia, rate of 127, no ST or T wave changes, artifacts noted V4. - Medical Decision Making Patient presents with continuous waxing and waning chest pain since 5 AM. EKG sinus tachycardia. Low risk Wells criteria, d-dimer obtained was negative. She is given IV fluids. Given her aspirin dose for today. Nitro was started, after 1 dose no improvement. Was reviewing records, she had exact same presentation in March with no improvement. She still has coronary disease with blockage even with the 2 stents. Decision was started with a nitro drip in order to titrate. Troponin returned negative chest x-ray negative. Nitro drip continue to be titrated. Blood pressure stable. Initial call out for cardiology with Dr. Odonnell who is travel accommodation inspector, however no return of call. Therefore I discussed with interventionalist Dr. Mobley, updated patient's presentation and work-up in March that was negative however diagnostic cath was positive. Concerns for unstable angina. He recommended Lopressor to help with heart rate, heparin drip, continue her daily Plavix, titrating her nitro drip as blood pressure allows. Will admit with consult to cardiology, he is available if needed. Spoke with hospitalist Dr. Monreal for admission. Patient heart score currently of 4. DONYA score 3. - Critical Care Time Critical care time (excluding procedures): 30-74 minutes, Discussing w/Consultants, Arranging Admission or Transfer ED Disposition - Plan for ED Patient: Disposition: Acute Care Hospital [facility] Diagnosis: Angina at rest Referrals: Kannan Garcia MD [Primary Care Provider] -
[2018-09-18] MEDS: Aspirin 81 MG TAB.CHEW 324 MG PO (15:59)
[2018-09-18] MEDS: Nitroglycerin SL (ED/IMG/CATH) 0.4 MG TABLET SUBLINGUAL (15:59)
[2018-09-18 16:00] LABS: Absolute Lymphocyte Count 1.21 X10^3/ul (0.83-4.51); Absolute Neutrophil Count 10.1 X10^3/uL (2.0-7.7); Basophil# 0.01 X10^3/uL; Basophil% 0.1 % (0-1); Eosinophil# 0.04 X10^3/uL; Eosinophils% 0.3 % (0-5); Lymphocyte # 1.21 X10^3/ul (4.0); Lymphocyte % 10.2 % (19-41); Mean Corp Hgb Conc 33.3 g/gl (32-36); Mean Corpuscular Hgb 30.7 pg (27.0-32.0); Monocyte# 0.43 X10^3/uL; Monocyte% 3.6 % (0-10); Neutrophil # 10.14 X10^3/uL (2.7-7.7); Neutrophil % 85.6 % (47-70); Platelet Count 207 K/mm3 (150-450); RBC Distribution Width CV 13.1 % (11.6-14.6); Red Blood Count 4.24 M/mm3 (4.2-5.4); White Blood Count 11.9 K/mm3 (4.4-11.0)
[2018-09-18 16:01] LABS: POSITIVE COUNT NO; POSITIVE DIFFERENTIAL NO; POSITIVE MORPHOLOGY NO
--- NOTE | 2018-09-18 16:02 | ED.DCSUM_ITS ---
History of Present Illness Chief Complaint: Chest Pain Informant: Patient Onset: Today Narrative: Patient presents for continuous waxing waning left-sided chest pain since 5 AM this morning. Reports symptoms as a squeezing sensation. States had transient symptoms 2 days ago. Reports pain down left arm and dyspnea along with headache symptoms. No current nausea. Reports similar symptoms when she had stents placed last year in March. He is on aspirin and Plavix however did not take her medications today. She is a diabetic, hypercholesterolemia and hypertension. No tobacco history. Grandmother with coronary disease. Patient denies history of PA. No recent travel, surgeries, or immobilizations. No history of PE or DVT. States mild diarrhea today. No vomiting. Review of records from cath report March 2018, noted EF of 70, there was a mid LAD lesion of 75% distal LAD lesion of 70%. There is a mid RCA 50% and a right PDA of 70%. Patient was stented to the mid LAD which also had an in-stent restenosis. She had a proximal RCA stent. From her records and description from history in March she is presenting with exact same symptoms, she had serial enzymes along with a stress test that was negative however with persistent symptoms she was sent for diagnostic cath with findings above. Prior similar symptoms: Yes Past Medical History - Allergies and Home Meds Allergies/Adverse Reactions: Allergies prednisone Adverse Reaction (Verified 07/16/18 08:58) Nausea Primary Care Physician: Kannan Garcia MD [Primary Care Provider] - Surgical History: hysterectomy, - Smoking Status: Never smoker - Family History Maternal Family History: Family History (Last Reviewed 08/02/18 @ 13:19 by Alison Alcala) Grandmother Alcoholism Cancer Arthritis Mother Alcoholism Diabetes blood clots Hypertension Grandfather Heart disease Sister Thyroid disorder Other Breast cancer Cervical cancer Colon cancer Family History: Reports: Diabetes - age 60 Paternal Family History: Family History (Last Reviewed 08/02/18 @ 13:19 by Alison Alcala) Grandmother Alcoholism Cancer Arthritis Mother Alcoholism Diabetes blood clots Hypertension Grandfather Heart disease Sister Thyroid disorder Other Breast cancer Cervical cancer Colon cancer Family History: Reports: Unknown Review of Systems General: Denies: Chills, Fever, Sweats Eyes: Denies: Visual changes - bilaterally, Diplopia ENT: Denies: Rhinorrhea, Sore throat Cardiovascular: Reports: Chest pain. Denies: Palpitations Respiratory: Reports: Dyspnea. Denies: Cough, Dyspnea on exertion Gastrointestinal: Denies: Abdominal pain, Nausea, Vomiting, Diarrhea, Melena, Hematochezia Genitourinary: Denies: Dysuria, Hematuria, Frequency Musculoskeletal: Denies: Back pain, Extremity Pain Skin: Denies: Rash, Wounds Neurological: Denies: Headache, Weakness, Numbness Physical Exam Vital Signs/Narrative: Vital Signs Temp Pulse Resp BP Pulse Ox 09/18/18 15:22 131 H 18 149/93 H 100 09/18/18 15:11 99.4 F H 18 175/90 H 96 Inital Vital Signs reviewed: Yes General: Well nourished, Well developed, No Acute Distress Head: Normocephalic, Atraumatic Eyes: Perrl, EOMI ENT: Moist mucous membranes, No rhinorrhea Neck: Supple, Nontender Cardiovascular: Regular rate, Regular rhythm, No murmurs, Tachycardia Respiratory: No distress, CTA bilaterally, Chest nontender Abdomen: Soft, Nontender, Nondistended, Normal bowel sounds Back: Nontender, Normal Inspection Extremities: Nontender, No edema Skin: Normal color, No rash Neurological: Alert, Oriented x3, Cranial nerves II-XII grossly intact, Normal Strength, Normal Sensation Psychological: Normal affect, Normal Mood Diagnostic/Tx/Re-eval Chest X-Ray - ED: 1 View, Read by ED Physician, Read by Radiologist, No Acute Disease - EKG Initial EKG Interpretation: Sinus Rhythm, Sinus Tachycardia, - - Sinus tachycardia, rate of 127, no ST or T wave changes, artifacts noted V4. - Medical Decision Making Patient presents with continuous waxing and waning chest pain since 5 AM. EKG sinus tachycardia. Low risk Wells criteria, d-dimer obtained was negative. She is given IV fluids. Given her aspirin dose for today. Nitro was started, after 1 dose no improvement. Was reviewing records, she had exact same presentation in March with no improvement. She still has coronary disease with blockage even with the 2 stents. Decision was started with a nitro drip in order to titrate. Troponin returned negative chest x-ray negative. Nitro drip continue to be titrated. Blood pressure stable. Initial call out for cardiology with Dr. Odonnell who is bacon skinner, however no return of call. Therefore I discussed with interventionalist Dr. Mobley, updated patient's presentation and work-up in March that was negative however diagnostic cath was positive. Concerns for unstable angina. He recommended Lopressor to help with heart rate, heparin drip, continue her daily Plavix, titrating her nitro drip as blood pressure allows. Will admit with consult to cardiology, he is available if needed. Spoke with hospitalist Dr. Monreal for admission. Patient heart score currently of 4. DONYA score 3. - Critical Care Time Critical care time (excluding procedures): 30-74 minutes, Discussing w/Consultants, Arranging Admission or Transfer ED Disposition - Plan for ED Patient: Disposition: Acute Care Hospital [facility] Diagnosis: Angina at rest Referrals: Kannan Garcia MD [Primary Care Provider] -
[2018-09-18 16:04] LABS: Prothrombin Time (Protime)PT. 13.4 SECONDS (11.7-14.9)
[2018-09-18] MEDS: 0.9% Normal Saline 1,000 ML 150 ML IV (16:04)
[2018-09-18 16:07] LABS: Anion Gap 8 (5-15); BUN 15 mg/dL (7-18); BUN/Creat Ratio 16.3 RATIO (10-20); Calcium,Total 8.8 mg/dL (8.5-10.1); Chloride 106 mmol/L (98-107); Creatinine, Serum 0.92 mg/dL (0.55-1.02); EST Glomerular Filtration Rate 65 mL/min (>60); Est Glom Filt Rate - Afr Amer 78 mL/min (>60); Estimated Creatinine Clearance 48.22 ml/min; Glucose 145 mg/dL (74-106); Potassium 3.9 mmol/L (3.5-5.1); Sodium Level 142 mmol/L (136-145)
[2018-09-18] MEDS: Nitroglycerin Infusion 250 ML 3 MG CONT INF ×2 (16:25→23:04)
[2018-09-18] MEDS: Acetaminophen 500 MG Tablet 1000 MG PO (18:07)
[2018-09-18] MEDS: Morphine 4 MG/ML Syringe IV ×2 (18:07→21:58)
[2018-09-18] MEDS: Clopidogrel Bisulfate 75 MG Tablet PO (18:48)
[2018-09-18] MEDS: Metoprolol Tartrate 5 MG/5 ML Vial 10 MG IV (18:48)
[2018-09-18] MEDS: HEPARIN/D5w 25,000 UNITS 25,000 UNITS/250 ML IV.SOLN. 10 UNITS IV (19:16)
[2018-09-18] MEDS: Heparin Injection (Vial) 5,000 UNIT/ML VIAL 4000 UNIT IV (19:16)
--- NOTE | 2018-09-18 19:38 | PCM.HP.STD ---
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: Chronic Comment: YESENIA to mid LAD (3.0 X 38 [employer]); YESENIA to mid-distal LAD ISR (2.5 X 38 [employer]); and YESENIA to proximal RCA (2.5 X12 [employer]) 03/22/18 (3) History of coronary artery stent placement Status: Resolved Comment: YESENIA to mid LAD (3.0 X 38 [employer]); YESENIA to mid-distal LAD ISR (2.5 X 38 [employer]); and YESENIA to proximal RCA (2.5 X12 [employer]) 03/22/18 (4) Essential (primary) hypertension Status: Chronic (5) Chronic diastolic CHF (congestive heart failure) Status: Chronic (6) Hyperlipidemia Status: Chronic Qualifiers: Hyperlipidemia type: pure hypercholesterolemia Qualified Code(s): E78.00 - Pure hypercholesterolemia, unspecified; E78.0 - Pure hypercholesterolemia History of Present Illness Date of Admission: 09/18/18 Chief Complaint: Chest pain The patient is a 67 year old F with PMH as below who presents with chest pain that is been going on for several weeks. She states that the pain had been a little bit intermittent and then it has just steadily gotten worse over the last several days. She says that there is association with some shortness of breath and just not feeling right. She also had a headache this morning. She states that the pain is in her left side of her chest and it goes to her left shoulder and down her arm. She is supposed to be on aspirin and Plavix for stents placed in March. She did not take her Plavix today but we will give it to her in the ER. Of note she had very similar symptoms in March where she had 3 normal troponins and a normal stress test and then had a cardiac cath which showed multiple lesions in the LAD as well as the RCA. Initial troponin in the ER was negative, however she will be admitted because of her past history. 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 (Chronic) YESENIA to mid LAD (3.0 X 38 Prom[employer]); YESENIA to mid-distal LAD ISR (2.5 X 38 [employer]); and YESENIA to proximal RCA (2.5 X12 [employer]) 03/22/18 Essential (primary) hypertension (Chronic) Chronic diastolic CHF (congestive heart failure) (Chronic) Hyperlipidemia (Chronic) Atherosclerotic heart disease of rampart coronary artery without angina pectoris (Chronic) YESENIA to mid LAD (3.0 X 38 Prom[employer]); YESENIA to mid-distal LAD ISR (2.5 X 38 Prom[employer]); and YESENIA to proximal RCA (2.5 X12 Prom[employer]nergy) 03/22/18 Medical History: Medical History (Last Reviewed 08/02/18 @ 13:19 by Alison Alcala) 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 (Chronic) I25.119 YESENIA to mid LAD (3.0 X 38 Prom[employer]); YESENIA to mid-distal LAD ISR (2.5 X 38 Prom[employer]); and YESENIA to proximal RCA (2.5 X12 [employer]) 03/22/18 Essential (primary) hypertension (Chronic) I10 Chronic diastolic CHF (congestive heart failure) (Chronic) I50.32 Hyperlipidemia (Chronic) E78.5 Atherosclerotic heart disease of rampart coronary artery without angina pectoris (Chronic) I25.10 YESENIA to mid LAD (3.0 X 38 Prom[employer]); YESENIA to mid-distal LAD ISR (2.5 X 38 [employer]); and YESENIA to proximal RCA (2.5 X12 [employer]) 03/22/18 Diabetes type 2, controlled E11.9 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 Obesity E66.9 Obstructive sleep apnea G47.33 RIGHT FOOT HEEL SPUR Rheumatoid arthritis M06.9 Seasonal allergies J30.2 Seizures R56.9 Urinary frequency R35.0 Hives L50.9 Conversion disorder F44.9 Allergies prednisone Adverse Reaction (Verified 07/16/18 08:58) Nausea Home Medications: Ambulatory Orders Medication Instructions Recorded Gabapentin 600 mg PO BID 02/23/13 Glimepiride [Amaryl] 2 mg PO DAILY 02/23/13 Hydroxychloroquine [Plaquenil] 200 mg PO BIDCM 02/23/13 Dicyclomine HCl [Bentyl] 20 mg PO TIDAC PRN #16 cap 12/25/15 Aspirin [Aspirin, Baby] 81 mg PO DAILY@0800 02/26/17 Cholecalciferol (Vitamin D3) 2,000 unit PO DAILY 02/26/17 [Vitamin D3] fluticasone propionate 50 1 spray INTRANASAL BID #16 g 06/23/17 mcg/actuation nasal spray,suspension triamcinolone acetonide 0.025 % 1 applic TOPICAL QDAY #80 g 09/10/17 topical ointment divalproex ER 250 mg 1,000 mg PO QHS #120 tab 03/17/18 tablet,extended release 24 hr Cyclobenzaprine HCl 10 mg PO TID PRN PRN #30 tab 03/23/18 atorvastatin 80 mg tablet 80 mg PO QHS #90 tab 04/16/18 carvedilol 3.125 mg tablet 3.125 mg PO BID #180 tab 04/16/18 clopidogrel 75 mg tablet 75 mg PO DAILY #90 tab 04/16/18 losartan 25 mg tablet 25 mg PO DAILY #90 tab 04/16/18 Surgical History: Surgical History (Last Reviewed 08/02/18 @ 13:19 by Alison Alcala) History of coronary artery stent placement (Resolved) Onset Date: 03/22/18 Z95.5 YESENIA to mid LAD (3.0 X 38 Promus Synergy); YESENIA to mid-distal LAD ISR (2.5 X 38 Prom[employer] Synergy); and YESENIA to proximal RCA (2.5 X12 Prom[employer] Synergy) 03/22/18 H/O: hysterectomy Z98.890, Z90.710 History of carpal tunnel surgery Z92.89 History of section Z98.891 Surgical History: hysterectomy, - Smoking Status: Never smoker - *Family History Maternal Family History: Family History (Last Reviewed 08/02/18 @ 13:19 by Alison Alcala) Grandmother Alcoholism Cancer Arthritis Mother Alcoholism Diabetes blood clots Hypertension Grandfather Heart disease Sister Thyroid disorder Other Breast cancer Cervical cancer Colon cancer History Items: Diabetes - age 60 Paternal Family History: Family History (Last Reviewed 08/02/18 @ 13:19 by Alison Alcala) Grandmother Alcoholism Cancer Arthritis Mother Alcoholism Diabetes blood clots Hypertension Grandfather Heart disease Sister Thyroid disorder Other Breast cancer Cervical cancer Colon cancer History Items: Unknown Review of Systems Constitutional: Denies: Chills, Fever, Weight Change HEENT: Denies: Head Aches, Sinus Congestion, Sinus Drainage Cardiovascular: Reports: Chest Pain. Denies: Palpitations Respiratory: Reports: Shortness of Breath. Denies: Cough, Shortness of breath at rest, Sputum production Gastrointestinal: Denies: Abdominal Pain, Nausea, Vomiting Genitourinary: Denies: Dysuria Musculoskeletal: Denies: Joint Pain, Joint Tenderness Skin: Denies: Rash, Wounds Neurological: Denies: Numbness, Tingling, Focal weakness Psychiatric: Denies: Anxiety, Depression Hematologic/ Lymphatic: Denies: Easy Bruising, Easy Bleeding VTE Information - Inpt Only VTE Present on Admission: No Patient Problems: Active and Suspected Problems (Last Reviewed 08/02/18 @ 13:19 by Alison Alcala) Angina at rest (Acute) - Physical Exam General: Alert, Oriented x3, Cooperative, No apparent distress HEENT: Atraumatic, PERRLA, EOMI, Normocephalic Oral: Moist Mucosa Neck: Supple, No JVD Lungs: Clear to auscultation, Normal air movement, No rhonchi, No wheeze, No rales Cardiovascular: Regular Rhythm, Normal S1, Normal S2, No murmurs, Tachycardic Abdomen: Soft, Non Tender, Non-Distended, No Hepato-splenomegaly Extremities: No edema, Capillary Refill Less than 3 Seconds Skin: No rashes, No breakdown Neurological: Neuro grossly intact, Sensory exam intact to light touch and pain Psych/Mental Status: Normal Affect, Appropriate Vital Signs Temp Pulse Resp BP Pulse Ox 99.4 F H 103 H 18 118/74 99 09/18/18 15:11 09/18/18 19:00 09/18/18 19:00 09/18/18 19:00 09/18/18 19:00 Oxygen Flow Rate (L/min) 2 Oxygen Delivery Method Nasal Cannula Weight: 180 lb 5.41 oz Body Mass Index (BMI) 33.0 Finger Stick Blood Glucose 173 Laboratory Tests Past 24 Hrs 09/18/18 09/18/18 09/18/18 15:14 15:14 15:14 WBC 11.9 H RBC 4.24 Hgb 13.0 Hct 39.0 MCV 92.0 MCH 30.7 MCHC 33.3 RDW 13.1 RDW Differential 43.0 Plt Count 207 MPV 11.0 Immature Gran % (Auto) 0.200 Neut % (Auto) 85.6 H Lymph % (Auto) 10.2 L [place] % (Auto) 3.6 Eos % (Auto) 0.3 Baso % (Auto) 0.1 Absolute Neuts (auto) 10.1 H Absolute Lymphs (auto) 1.21 Total Counted Not Reportable PT 13.4 INR 1.0 APTT 28.0 D-Dimer Quant (PE/DVT) 0.30 Sodium 142 Potassium 3.9 Chloride 106 Carbon Dioxide 28.0 Anion Gap 8 BUN 15 Creatinine 0.92 Estim Creat Clear Calc 48.22 Est GFR (MDRD) Af Amer 78 Est GFR (MDRD) Non-Af 65 BUN/Creatinine Ratio 16.3 Glucose 145 H Calcium 8.8 Troponin I < 0.015 Assessment/Plan All Active Problems (Last Reviewed 08/02/18 @ 13:19 by Alison Alcala) Angina at rest (Acute) Left shoulder pain (Acute) History of coronary artery stent placement (Resolved 03/22/18) 1. Unstable angina/CAD status post 2 stents with a re-in-stent thrombosis/HLD/HTN/chronic diastolic CHF -Because of her tachycardia and her blood pressure as well as her unstable angina she was started on a heparin drip as well as a nitro drip and she was given PRN Lopressor -We will restart her Coreg and hopefully be able to titrate down her nitro drip a little bit given that her blood pressure has returned to somewhat normal levels -Continue with her statin -Aspirin and Plavix -Appreciate cardiology input -She had a stress test in July which was normal however so was a stress test in March prior to her cardiac cath and necessitated 2 stents -May need to have an echo on Thursday -Obtain serial troponins 2. Type 2 diabetes -We will hold her glimepiride -Continue with Levemir 5 units at night as well as a sliding scale insulin -Check blood sugars before meals at bedtime 3. Seizure disorder -Her last seizure was about 2 years ago -Continue with her home Depakote 4. RA -There is a significant association between rheumatoid arthritis and coronary artery disease -She is currently on Plaquenil but may need to be on something more in the setting of her CAD 5. Urinary frequency -Stable -Continue with Bentyl DVT: Heparin drip Code Visit OBSV E&M: [id number] Initial observation care L3
--- NOTE | 2018-09-18 20:52 | EKG12_ITS ---
Test Reason : CP Blood Pressure : / mmHG Vent. Rate : 098 BPM Atrial Rate : 098 BPM P-R Int : 152 ms QRS Dur : 082 ms QT Int : 360 ms P-R-T Axes : 058 016 041 degrees QTc Int : 459 ms Normal sinus rhythm Normal ECG When compared with ECG of 18-SEP-2018 15:13, MANUAL COMPARISON REQUIRED, DATA IS UNCONFIRMED Reconfirmed by RADHIKA ZUNIGA, KELLY ([id number]), book or script editor NITISH CLARKE ([id number]) on 09/21/2018 2:26:59 PM Referred By: LESTER Confirmed By:KELLY GARRIDO MD
[2018-09-18] MEDS: 0.9% NaCl Peripheral Flush Adult/Peds IV (21:59)
--- NOTE | 2018-09-18 22:11 | EKG12_ITS ---
Test Reason : Blood Pressure : / mmHG Vent. Rate : 103 BPM Atrial Rate : 103 BPM P-R Int : 148 ms QRS Dur : 080 ms QT Int : 332 ms P-R-T Axes : 055 006 035 degrees QTc Int : 434 ms Sinus tachycardia Nonspecific T wave abnormality Abnormal ECG No previous ECGs available Confirmed by RADHIKA ZUNIGA, KELLY ([id number]), image editor CLAUDIA HECTOR ([id number]) on 09/21/2018 11:24:24 AM Referred By: Confirmed By:KELLY GARRIDO MD
[2018-09-18] MEDS: 0.9% Normal Saline 1,000 ML 100 ML IV (22:18)
[2018-09-18] MEDS: Divalproex (ER) 500 MG Tablet 1000 MG PO (22:20)
[2018-09-18] MEDS: Atorvastatin Calcium 80 MG Tablet PO (22:20)
[2018-09-18] MEDS: Carvedilol 3.125 MG TABLET PO (22:20)
[2018-09-18] MEDS: Gabapentin 600 MG Tablet PO (22:26)
[2018-09-18 22:30] LABS: Bedside Glucose 129 mg/dL (70-110)
--- NOTE | 2018-09-18 23:04 | EKG12_ITS ---
Test Reason : EKG Blood Pressure : / mmHG Vent. Rate : 092 BPM Atrial Rate : 092 BPM P-R Int : 160 ms QRS Dur : 080 ms QT Int : 360 ms P-R-T Axes : 053 011 019 degrees QTc Int : 445 ms Normal sinus rhythm Normal ECG When compared with ECG of 18-SEP-2018 22:23, MANUAL COMPARISON REQUIRED, DATA IS UNCONFIRMED Confirmed by RADHIKA ZUNIGA, KELLY ([id number]), assistant film editor CLAUDIA HECTOR ([id number]) on 09/21/2018 11:23:17 AM Referred By: LESTER Confirmed By:KELLY GARRIDO MD
--- NOTE | 2018-09-18 23:27 | ECHOD_ITS ---
Reason For Study: CAD/ASHD Procedure This was a 2D Doppler, Color Flow transthoracic echocardiogram. Exam performed portable in ICU/CCU. Left Ventricle Normal LV size. Mild concentric left ventricular hypertrophy. Left ventricular systolic function is normal. The estimated ejection fraction is 65 %. Stage 1 diastolic dysfunction. No regional wall motion abnormalities noted. Right Ventricle Normal RV size. Normal systolic function. Atria Normal left atrium. Normal right atrium. Patent foramen ovale. Mitral Valve Normal mitral valve. Tricuspid Valve Normal tricuspid valve. Mild tricuspid valve insufficiency. Aortic Valve Normal aortic valve. Pulmonic Valve Normal pulmonic valve. Great Vessels Normal aortic root. The pulmonary artery is normal size. Normal inferior vena cava. Pericardium/Pleural No pericardial effusion. Medication Performed a rapid injection of agitated mix of 9 cc saline and 1cc air to assess for atrial septal defect. MMode/2D Measurements & Calculations LVIDd: 4.4 cm IVSd: 1.2 cm Ao root diam: 3.6 cm LVIDs: 2.4 cm LVPWd: 1.3 cm LA dimension: 3.6 cm FS: 45.6 % LAV(MOD-sp4): 43.1 ml LA A4 area: 17.0 cm2 RA A4 area: 15.5 cm2 Time Measurements MV dec time: 0.19 sec Doppler Measurements & Calculations MV E max raul: 76.0 cm/sec Lat Peak E' Raul: 7.7 cm/sec Med Peak E' Raul: 11.2 cm/sec MV A max raul: 86.8 cm/sec E/E' lat: 9.8 E/E' med: 6.8 MV E/A: 0.88 MV V2 max: 81.5 cm/sec MV P1/2t max raul: 74.7 cm/sec Ao V2 max: 135.9 cm/sec MV max P.7 mmHg MV P1/2t: 58.4 msec Ao max P.4 mmHg MV V2 mean: 48.2 cm/sec MV dec slope: 374.9 cm/sec2 Ao V2 mean: 95.8 cm/sec MV mean P.1 mmHg Ao mean P.0 mmHg MV V2 VTI: 16.7 cm MVA(P1/2t): 3.8 cm2 Ao V2 VTI: 28.6 cm LV V1 max: 102.1 cm/sec PA V2 max: 128.1 cm/sec TR max raul: 217.1 cm/sec LV V1 max P.2 mmHg TR max P.8 mmHg LV V1 mean P.3 mmHg LV V1 mean: 71.4 cm/sec LV V1 VTI: 23.3 cm Interpretation Summary Normal LV size. Mild concentric left ventricular hypertrophy. The estimated ejection fraction is 65 %. Stage 1 diastolic dysfunction. Structurally normal valves. Ordering Physician: Newton Odonnell Performed By: Rhett Forte RCS
[2018-09-19] VITALS (40 sets, daily range): BP systolic 86–161; BP diastolic 34–82; PULSE 90–122; RESP 10–31; TEMP 36.8–37.4; O2SAT 92–100
--- NOTE | 2018-09-19 00:16 | PCM.CONS.C ---
Problem List (1) Angina pectoris Status: Acute (2) CAD (coronary artery disease) Status: Chronic Qualifiers: Coronary Disease-Associated Artery/Lesion type: [place] artery [place] vs. transplanted heart: ass[place] sioux heart (3) History of coronary artery stent placement Status: Resolved Comment: YESENIA to mid LAD (3.0 X 38 Promus Synergy); YESENIA to mid-distal LAD ISR (2.5 X 38 Promus Synergy); and YESENIA to proximal RCA (2.5 X12 Promus Synergy) 03/22/18 (4) Hyperlipidemia Status: Chronic Qualifiers: Hyperlipidemia type: pure hypercholesterolemia Qualified Code(s): E78.00 - Pure hypercholesterolemia, unspecified; E78.0 - Pure hypercholesterolemia (5) Essential (primary) hypertension Status: Chronic Reason for Consult Date of Consultation: 09/18/18 History of Present Illness: The patient is a 67 year old -Turkmen female with a past history of hyperlipidemia, hypertension, CAD, status post LAD PCI/YESENIA and RCA PCI/YESENIA, who is referred for evaluation of chest discomfort concerning for angina pectoris. The patient states that for the past week she has been having off and on chest discomfort. However she has tended to ignore it as she has been trying to help take care of other people. This morning she noted a headache as well as abdominal discomfort and repetitive episodes of loose bowel movements/diarrhea. She states then attended a jewish function. During that time she noted chest discomfort as well as left upper extremity discomfort. She may have felt somewhat nauseated. She does not remember being short of breath or dyspneic nor becoming diaphoretic. There was no loss of consciousness. She was told by her friends that she did not look good . She subsequently returned from her jewish function and was brought to the hospital for further evaluation. She was evaluated in the emergency department based upon the aforementioned concerns. She was noted to have a negative troponin I level and an ECG that demonstrated sinus rhythm/sinus tachycardia with possible left atrial enlargement and poor R wave progression with no acute ECG changes. She was placed in the ICU for further evaluation and care. Based upon ongoing concerns of chest discomfort she had continued adjustment of medications. She had repeat troponin I levels which were negative. She had repeat ECGs that demonstrated continued evidence of sinus rhythm with no acute ECG changes. Status post medical management with a combination of aspirin, antiplatelet therapy with clopidogrel/Plavix, IV heparin, IV nitroglycerin, beta-blockers in the emergency department (IV) and subsequently in the ICU oral, and morphine sulfate 4 mg IV push x1, she appeared to have improvement of her symptoms and upon cardiovascular consultation was noting to be resting comfortably and sleeping. She stated that her symptoms had improved and she was no longer having the chest discomfort or left upper extremity discomfort as she was earlier. She also noted she was no longer having the abdominal discomfort or ongoing loose bowel movements. She states that her symptoms that have been waxing and waning over the past week or similar to symptoms she had prior to her March 2018 cardiac catheterization and PCI procedure. [] Past Medical History Allergies/Adverse Reactions: Allergies prednisone Adverse Reaction (Verified 07/16/18 08:58) Nausea Home Medications: Ambulatory Orders Medication Instructions Recorded Gabapentin 600 mg PO BID 02/23/13 Glimepiride [Amaryl] 2 mg PO DAILY 02/23/13 Hydroxychloroquine [Plaquenil] 200 mg PO BIDCM 02/23/13 Dicyclomine HCl [Bentyl] 20 mg PO TIDAC PRN #16 cap 12/25/15 Aspirin [Aspirin, Baby] 81 mg PO DAILY@0800 02/26/17 Cholecalciferol (Vitamin D3) 2,000 unit PO DAILY 02/26/17 [Vitamin D3] fluticasone propionate 50 1 spray INTRANASAL BID #16 g 06/23/17 mcg/actuation nasal spray,suspension triamcinolone acetonide 0.025 % 1 applic TOPICAL QDAY #80 g 09/10/17 topical ointment divalproex ER 250 mg 1,000 mg PO QHS #120 tab 03/17/18 tablet,extended release 24 hr Cyclobenzaprine HCl 10 mg PO TID PRN PRN #30 tab 03/23/18 atorvastatin 80 mg tablet 80 mg PO QHS #90 tab 04/16/18 carvedilol 3.125 mg tablet 3.125 mg PO BID #180 tab 04/16/18 clopidogrel 75 mg tablet 75 mg PO DAILY #90 tab 04/16/18 losartan 25 mg tablet 25 mg PO DAILY #90 tab 04/16/18 Past Medical History (Chronic Problems): Chronic Problems (Last Reviewed 08/02/18 @ 13:19 by Alison Alcala) CAD (coronary artery disease) (Chronic) Atherosclerosis of coronary artery of ass[place] and si[place] heart with angina pectoris (Chronic) YESENIA to mid LAD (3.0 X 38 Promus Synergy); YESENIA to mid-distal LAD ISR (2.5 X 38 Promus Synergy); and YESENIA to proximal RCA (2.5 X12 Promus Synergy) 03/22/18 Essential (primary) hypertension (Chronic) Chronic diastolic CHF (congestive heart failure) (Chronic) Hyperlipidemia (Chronic) Atherosclerotic heart disease of [place] and [place] coronary artery without angina pectoris (Chronic) YESENIA to mid LAD (3.0 X 38 Promus Synergy); YESENIA to mid-distal LAD ISR (2.5 X 38 Promus Synergy); and YESENIA to proximal RCA (2.5 X12 Promus Synergy) 03/22/18 Surgical History: angioplasty, hysterectomy, - - *Family History Maternal Family History: Family History (Last Reviewed 08/02/18 @ 13:19 by Alison Alcala) Grandmother Alcoholism Cancer Arthritis Mother Alcoholism Diabetes blood clots Hypertension Grandfather Heart disease Sister Thyroid disorder Other Breast cancer Cervical cancer Colon cancer History Items: Diabetes - age 60 Paternal Family History: Family History (Last Reviewed 08/02/18 @ 13:19 by Alison Alcala) Grandmother Alcoholism Cancer Arthritis Mother Alcoholism Diabetes blood clots Hypertension Grandfather Heart disease Sister Thyroid disorder Other Breast cancer Cervical cancer Colon cancer History Items: Unknown Lives: Alone Smoking Status: Never smoker Alcohol: None Drugs: None Subjectve: This is a 67-year-old -Turkmen female who appears to be resting comfortably at the moment in no acute distress. Objective: Vital Signs Temp Pulse Resp BP Pulse Ox 98.7 F 92 18 109/61 100 09/18/18 20:15 09/18/18 23:00 09/18/18 23:00 09/18/18 23:00 09/18/18 23:00 Oxygen Flow Rate (L/min) 2 Oxygen Delivery Method Nasal Cannula Weight: 180 lb 15.992 oz Body Mass Index (BMI) 33.0 Finger Stick Blood Glucose 173 Intake and Output for Last 24 Hours 09/17/18 09/18/18 09/19/18 23:59 23:59 23:59 Intake Total 764 / 764 Output Total 400 / 400 Balance 364 / 364 General: Awake, Alert, Oriented x 3, Cooperative, No Acute Distress HEENT: Atraumatic, Normocephalic, PERRL, EOMI, Sclera Non Icteric Oral: Moist Mucosa Neck: Supple, Good ROM, No JVD Lungs: Clear to auscultation Cardiovascular: Regular Rhythm, Normal S1, Normal S2 Vascular: No Carotid Bruits Abdomen: Bowel Sounds Present, Soft, Non Tender Extremities: No Cyanosis, No Clubbing, No edema Neurological: No Focal Motor or Sensory Deficit Psych/Mental Status: Appropriate 09/18/18 15:14: WBC 11.9 H, RBC 4.24, Hgb 13.0, Hct 39.0, MCV 92.0, MCH 30.7, MCHC 33.3, RDW 13.1, RDW Differential 43.0, Plt Count 207, MPV 11.0, Immature Gran % (Auto) 0.200, Neut % (Auto) 85.6 H, Lymph % (Auto) 10.2 L, [place] % (Auto) 3.6, Eos % (Auto) 0.3, Baso % (Auto) 0.1, Absolute Neuts (auto) 10.1 H, Total Counted Not Reportable 09/18/18 15:14: Sodium 142, Potassium 3.9, Chloride 106, Carbon Dioxide 28.0, Anion Gap 8, BUN 15, Creatinine 0.92, Est GFR (MDRD) Af Amer 78, Est GFR (MDRD) Non-Af 65, BUN/Creatinine Ratio 16.3, Glucose 145 H, Calcium 8.8, Troponin I < 0.015 09/18/18 15:14: PT 13.4, INR 1.0, APTT 28.0, D-Dimer Quant (PE/DVT) 0.30 09/18/18 20:35: Troponin I < 0.015 Rhythm: Sinus rhythm EKG: As noted above Stress Test: Date: 07-06-18 Procedure: Exercise tolerance test/imaging study Indications: chest pain; CAD; PCI Consent: Per the patient Procedure: The patient exercised on a [place] protocol for 7 minutes and 15 seconds completing Stage II and 1 minute and 15 seconds of Stage III achieving a peak heart rate of 133 bpm (85 % predicted maximal heart rate) with a peak blood pressure 158/80 mmHg and a peak MET capacity of 8 METs. The baseline ECG demonstrated normal sinus rhythm . The peak exercise ECG demonstrated no obvious ECG changes . There were no cardiac dysrhythmias pretest, during exercise, or recovery. The functional capacity was considered average . There was no complaint of chest discomfort during exercise or recovery. The examination was discontinued secondary to dyspnea . Impression: 1. Technically adequate (percent predicted maximal heart rate greater than 85%) exercise tolerance test 2. Peak exercise ECG with no obvious ECG changes 3. There were no cardiac dysrhythmias pretest, during exercise, or recovery 4. Nuclear images pending Myocardial perfusion imaging study: Technique: The patient was injected with 14.6 mCi of technetium 99m Cardiolite and subsequently rest SPECT Cardiolite nuclear imaging was obtained in the horizontal long, vertical long, and short axis views. The patient exercised on a [place] protocol for 7 minutes and 15 seconds completing Stage II and 1 minute and 15 seconds of Stage III achieving a peak heart rate of 133 bpm (85 % predicted maximal heart rate) with a peak blood pressure 158/80 mmHg and a peak MET capacity of 8 METs. The patient was injected with 43.8 mCi of technetium 99m Cardiolite and subsequently stress SPECT Cardiolite nuclear imaging was obtained in the horizontal long, vertical long, and short axis views. A gated Cardiolite study at peak stress was obtained. Interpretation: Rest and stress SPECT Cardiolite nuclear imaging status post realignment, normalization, and attenuation correction, demonstrates the appearance of relative uniform tracer uptake and myocardial perfusion appearing within normal limits. There is end systolic thickening and brightening. The gated Cardiolite study demonstrates myocardial thickening and inward wall motion. The reported LVEF is 69 %. Impression: 1. Rest and stress SPECT Cardiolite nuclear imaging demonstrate relative uniform tracer uptake and myocardial perfusion appearing within normal limits. 2. The gated Cardiolite study reports an LVEF of 69 %. Cardiac Cath: 03-22-2018 CORONARY ANGIOGRAPHY DOMINANCE: Right Dominant LEFT HEART ASSESSMENT Left Ventricular Ejection Fraction: by LV Gram 70 % Normal LV wall motion Normal Left Ventricular systolic function LEFT MAIN: Angiographically normal LEFT ANTERIOR DECENDING ARTERY: 75 %mid % Stenosis DISTAL LAD: 70 % Stenosis CIRCUMFLEX ARTERY: Mild luminal irregularities RIGHT CORONARY ARTERY: MID RCA: Moderate luminal irregularities up to 50% RT PDA: Ostial - 70 % Stenosis PCI: Successful PTCA/YESENIA mid LAD with a 3.0 x 38 Promsu Synergy, post dilated with a 3.0 x 12 NC balloon, 75%-->0%, no dissection. Successful PTCA/YESENIA mid ISR with a 2.5 x 38 Promus Synergy, post dilated with a 3.0 x 12 NC Balllon throughout, also utilizing a 2.0 x 10 Angiosculpt for proximal stent ISR, 85%-->0%, no dissection. Successful PTCA/YESENIA proximal RCA with a 2.5 x 12 Promus Synergy, postdilated with both a 3.0 x 12 and 3.0 x 8 NC balloon; 75%-->0%, no dissection. CXR: Preliminary evaluation: No acute cardiopulmonary disease process appreciated: Please see official report Chest CT Scan: 02-22-13 Reported as demonstrating normal enhancement of the main pulmonary artery and right and left pulmonary arteries; normal enhancement of the bilateral peripheral pulmonary arteries; no demonstrated pulmonary embolism; normal thoracic aorta and visualized great vessels; no demonstrated aortic dissection; coronary artery calcifications; please see official report Assessment/Plan 1. Angina pectoris: Unstable The patient presents with symptoms which she states is similar to symptoms she had in March 2018 prior to her cardiovascular diagnosis leading to her CAD and subsequent PCI of her LAD and RCA systems. She also had symptoms prior to her chest discomfort/left upper extremity discomfort earlier today with headache and abdominal discomfort with associated frequent loose bowel movements. It is unclear as to whether the symptoms are related to underlying cardiovascular disease or a separate etiology. It is also unclear as to whether the symptoms are the etiology for her chest and left upper extremity discomfort noting that despite waxing and waning and prolonged symptoms throughout the past week and today her cardiac enzymes have remained negative and her ECG is demonstrated no acute ECG changes. At the present time she remains in the ICU. She will be followed by cardiac rhythm monitoring, enzyme follow-up, and ECG follow-up. A transthoracic echocardiogram will be requested to evaluate her left ventricular wall motion and systolic function. She will continue medical management with a combination of medications as deemed appropriate. However, she may require further evaluation in the cardiac catheterization laboratory, whether her noninvasive studies remain unremarkable or not, to reassess her coronary anatomy for progression of disease or in-stent restenosis that would require further catheter-based revascularization therapy, unless there is another etiology to clearly explain her symptoms, etc. 2. CAD status post PCI Again, she states her symptoms are similar to what she had in March 2018. She has recently undergone noninvasive evaluation with an exercise tolerance test in July of this year. Her myocardial perfusion study was considered negative and her gated LV systolic function was reported as normal. However she now presents with the aforementioned clinical scenario. She will continue to be monitored as noted above. She will continue evaluation care as noted above. 3. Hyperlipidemia She will continue medical therapy and follow-up. 4. Hypertension She will continue medical management with adjustment as deemed appropriate. Overall she will continue in the ICU and have continued cardiovascular monitoring and further noninvasive and/or invasive evaluation as deemed appropriate. She also may need to be considered by internal medicine for further evaluation of her headache, abdominal discomfort, and loose bowel movements as deemed appropriate. Comment: The above was discussed and reviewed with the patient, the [facility] hospitalist staff, and the [facility] ICU staff. This note was generated using a voice recognition system and there may be incorrect words, spelling or punctuation that were not noted when reviewing the office note prior to saving.
[2018-09-19] MEDS: Morphine 2 MG/ML Syringe IV (01:15)
[2018-09-19] MEDS: Nitroglycerin Infusion 250 ML 3 MG CONT INF ×2 (01:36→06:03)
[2018-09-19 01:48] LABS: Partial Thromboplast Time 82.2 Seconds (24.1-36.2)
[2018-09-19 05:10] LABS: Anion Gap 7 (5-15); BUN 13 mg/dL (7-18); BUN/Creat Ratio 16.9 RATIO (10-20); Calcium,Total 7.4 mg/dL (8.5-10.1); Chloride 106 mmol/L (98-107); Creatinine, Serum 0.77 mg/dL (0.55-1.02); EST Glomerular Filtration Rate 80 mL/min (>60); Est Glom Filt Rate - Afr Amer 97 mL/min (>60); Estimated Creatinine Clearance 57.61 ml/min; Glucose 160 mg/dL (74-106); Potassium 3.7 mmol/L (3.5-5.1); Sodium Level 140 mmol/L (136-145)
[2018-09-19 06:55] LABS: Bedside Glucose 154 mg/dL (70-110)
[2018-09-19] MEDS: Hydroxychloroquine 200 MG Tablet PO ×2 (08:10→18:02)
[2018-09-19] MEDS: Aspirin 81 MG TAB.CHEW PO (08:10)
[2018-09-19] MEDS: Insulin Lispro 100 UNIT/ML INSULN.PEN SQ ×2 (08:15→11:38)
[2018-09-19 08:55] LABS: Partial Thromboplast Time 52.9 Seconds (24.1-36.2)
[2018-09-19] MEDS: 0.9% Normal Saline 1,000 ML 100 ML IV (10:00)
--- NOTE | 2018-09-19 10:03 | PCM.PN.HOSP ---
Patient Problems: Active and Suspected Problems (Last Reviewed 08/02/18 @ 13:19 by Alison Alcala) Angina at rest (Acute) Angina pectoris (Acute) Subjective: Her chest pain has finally been relieved with the nitro drip, she has been able to sleep overnight a little bit and she was sleeping this morning. Vitals/I&O's: Vital Signs Temp Pulse Resp BP Pulse Ox 99.4 F H 103 H 17 115/51 L 95 09/19/18 08:00 09/19/18 09:30 09/19/18 09:30 09/19/18 09:30 09/19/18 09:30 Oxygen Flow Rate (L/min) 2 Oxygen Delivery Method Room Air Weight: 185 lb 13.595 oz Body Mass Index (BMI) 33.0 Finger Stick Blood Glucose 173 Intake and Output for Last 24 Hours 09/17/18 09/18/18 09/19/18 23:59 23:59 23:59 Intake Total 1905 / 1905 Output Total 500 / 500 Balance 1405 / 1405 General: Alert, Oriented x3, Cooperative, No apparent distress HEENT: Atraumatic, PERRLA, EOMI, Normocephalic Oral: Moist Mucosa Neck: Supple, No JVD Lungs: Clear to auscultation, Normal air movement, No rhonchi, No wheeze, No rales Cardiovascular: Regular Rhythm, Normal S1, Normal S2, No murmurs, Tachycardic Abdomen: Soft, Non Tender, Non-Distended, No Hepato-splenomegaly Extremities: No edema, Capillary Refill Less than 3 Seconds Skin: No rashes, No breakdown Neurological: Neuro grossly intact, Sensory exam intact to light touch and pain Psych/Mental Status: Normal Affect, Appropriate Laboratory Results 09/18/18 01:05: Troponin I Cancelled 09/18/18 15:14: WBC 11.9 H, RBC 4.24, Hgb 13.0, Hct 39.0, MCV 92.0, MCH 30.7, MCHC 33.3, RDW 13.1, RDW Differential 43.0, Plt Count 207, MPV 11.0, Immature Gran % (Auto) 0.200, Neut % (Auto) 85.6 H, Lymph % (Auto) 10.2 L, [place] % (Auto) 3.6, Eos % (Auto) 0.3, Baso % (Auto) 0.1, Absolute Neuts (auto) 10.1 H, Absolute Lymphs (auto) 1.21, Total Counted Not Reportable 09/18/18 15:14: Sodium 142, Potassium 3.9, Chloride 106, Carbon Dioxide 28.0, Anion Gap 8, BUN 15, Creatinine 0.92, Estim Creat Clear Calc 48.22, Est GFR (MDRD) Af Amer 78, Est GFR (MDRD) Non-Af 65, BUN/Creatinine Ratio 16.3, Glucose 145 H, Calcium 8.8, Troponin I < 0.015 09/18/18 15:14: PT 13.4, INR 1.0, APTT 28.0, D-Dimer Quant (PE/DVT) 0.30 09/18/18 20:35: Troponin I < 0.015 09/18/18 22:16: POC Glucose 129 H 09/19/18 01:05: Troponin I < 0.015 09/19/18 01:05: APTT 82.2 H 09/19/18 04:45: Sodium 140, Potassium 3.7, Chloride 106, Carbon Dioxide 27.0, Anion Gap 7, BUN 13, Creatinine 0.77, Estim Creat Clear Calc 57.61, Est GFR (MDRD) Af Amer 97, Est GFR (MDRD) Non-Af 80, BUN/Creatinine Ratio 16.9, Glucose 160 H, Calcium 7.4 L 09/19/18 06:53: POC Glucose 154 H 09/19/18 07:45: APTT 52.9 H Current Medications Aspirin (Aspirin, Baby) 81 mg PO DAILY@0800 [facility] Last Admin: 09/19/18 08:10 Dose: 81 mg Atorvastatin Calcium (Lipitor) 80 mg PO QHS [facility] Last Admin: 09/18/18 22:20 Dose: 80 mg Carvedilol (Coreg) 6.25 mg PO BID [facility] Clopidogrel Bisulfate (Plavix) 75 mg PO DAILY [facility] Cyclobenzaprine HCl (Flexeril) 10 mg PO TID PRN PRN PRN Reason: muscle spasm Dextrose (D50w Syringe) 0 gm IV X1 PRN; Protocol PRN Reason: Hypoglycemia Dicyclomine HCl (Bentyl) 20 mg PO TIDAC PRN PRN Reason: PAIN Divalproex Sodium (Depakote Er) 1,000 mg PO QHS [facility] Last Admin: 09/18/18 22:20 Dose: 1,000 mg Gabapentin (Neurontin) 600 mg PO BID [facility] Last Admin: 09/18/18 22:26 Dose: 600 mg Glucagon () 1 mg IM .X1 PRN PRN Reason: Hypoglycemia [facility] Admin: 09/19/18 08:10 Dose: 200 mg Sodium Chloride () 1,000 mls @ 100 mls/hr IV .Q10H [facility] Last Admin: 09/18/18 22:18 Dose: 100 mls/hr Heparin Sodium/Dextrose () 25,000 units in 250 mls @ 10 mls/hr IV .Q25H [facility]; Protocol Last Admin: 09/18/18 21:33 Dose: Not Given Nitroglycerin/Dextrose () 250 mls @ 3 mls/hr CONT INF .[id number] [facility] Last Admin: 09/19/18 06:03 Dose: 3 mls/hr Sodium Chloride () 250 mls @ 15 mls/hr IV .[id number] PRN PRN Reason: SALINE FLUSH Insulin Glargine (Lantus (Bkc)) 5 units SC QHS [facility] Last Admin: 09/18/18 22:18 Dose: 5 u Insulin Human Lispro (Humalog Kwikpen (Bkc)) 0 unit SQ ACHS [facility]; Protocol Last Admin: 09/19/18 08:15 Dose: 2 units Losartan Potassium (Cozaar) 25 mg PO DAILY [facility] Metoprolol Tartrate (Lopressor (Beta Arnold)) 5 mg IV Q6H PRN PRN PRN Reason: For HR > 100 Morphine Sulfate () 2 mg IV Q3H PRN PRN PRN Reason: Chest Pain Last Admin: 09/19/18 01:15 Dose: 2 mg Sodium Chloride () 5 - 15 ml IV UD PRN PRN Reason: SALINE FLUSH Last Admin: 09/18/18 21:59 Dose: 10 ml Medical Necessity - Tobacco Use Smoking Status: Never smoker Assessment/Plan All Active Problems (Last Reviewed 08/02/18 @ 13:19 by Alison Alcala) Angina at rest (Acute) Angina pectoris (Acute) Left shoulder pain (Acute) History of coronary artery stent placement (Resolved 03/22/18) 1. Unstable angina/CAD status post 2 stents with a re-in-stent thrombosis/HLD/HTN/chronic diastolic CHF -Because of her tachycardia and her blood pressure as well as her unstable angina she was started on a heparin drip as well as a nitro drip and she was given PRN Lopressor -We will restart her Coreg and hopefully be able to titrate down her nitro drip a little bit given that her blood pressure has returned to somewhat normal levels -Continue with her statin -Aspirin and Plavix -Appreciate cardiology input -She had a stress test in July which was normal however so was a stress test in March prior to her cardiac cath and necessitated 2 stents -May need to have an echo on Thursday as well as a cath -Serial troponins were normal 2. Type 2 diabetes -We will hold her glimepiride -Continue with Levemir 5 units at night as well as a sliding scale insulin -Check blood sugars before meals at bedtime 3. Seizure disorder -Her last seizure was about 2 years ago -Continue with her home Depakote 4. RA -There is a significant association between rheumatoid arthritis and coronary artery disease -She is currently on Plaquenil but may need to be on something more in the setting of her CAD 5. Urinary frequency -Stable -Continue with Bentyl DVT: Heparin drip Code Visit OBSV E&M: [id number] Subsequent observation care L2
--- NOTE | 2018-09-19 10:09 | PN_ITS ---
Patient Problems: Active and Suspected Problems (Last Reviewed 08/02/18 @ 13:19 by Alison Alcala) Angina at rest (Acute) Angina pectoris (Acute) Subjective: Her chest pain has finally been relieved with the nitro drip, she has been able to sleep overnight a little bit and she was sleeping this morning. Vitals/I&O's: Vital Signs Temp Pulse Resp BP Pulse Ox 99.4 F H 103 H 17 115/51 L 95 09/19/18 08:00 09/19/18 09:30 09/19/18 09:30 09/19/18 09:30 09/19/18 09:30 Oxygen Flow Rate (L/min) 2 Oxygen Delivery Method Room Air Weight: 185 lb 13.595 oz Body Mass Index (BMI) 33.0 Finger Stick Blood Glucose 173 Intake and Output for Last 24 Hours 09/17/18 09/18/18 09/19/18 23:59 23:59 23:59 Intake Total 1905 / 1905 Output Total 500 / 500 Balance 1405 / 1405 General: Alert, Oriented x3, Cooperative, No apparent distress HEENT: Atraumatic, PERRLA, EOMI, Normocephalic Oral: Moist Mucosa Neck: Supple, No JVD Lungs: Clear to auscultation, Normal air movement, No rhonchi, No wheeze, No rales Cardiovascular: Regular Rhythm, Normal S1, Normal S2, No murmurs, Tachycardic Abdomen: Soft, Non Tender, Non-Distended, No Hepato-splenomegaly Extremities: No edema, Capillary Refill Less than 3 Seconds Skin: No rashes, No breakdown Neurological: Neuro grossly intact, Sensory exam intact to light touch and pain Psych/Mental Status: Normal Affect, Appropriate Laboratory Results 09/18/18 01:05: Troponin I Cancelled 09/18/18 15:14: WBC 11.9 H, RBC 4.24, Hgb 13.0, Hct 39.0, MCV 92.0, MCH 30.7, MCHC 33.3, RDW 13.1, RDW Differential 43.0, Plt Count 207, MPV 11.0, Immature Gran % (Auto) 0.200, Neut % (Auto) 85.6 H, Lymph % (Auto) 10.2 L, [place] % (Auto) 3.6, Eos % (Auto) 0.3, Baso % (Auto) 0.1, Absolute Neuts (auto) 10.1 H, Absolute Lymphs (auto) 1.21, Total Counted Not Reportable 09/18/18 15:14: Sodium 142, Potassium 3.9, Chloride 106, Carbon Dioxide 28.0, Anion Gap 8, BUN 15, Creatinine 0.92, Estim Creat Clear Calc 48.22, Est GFR (MDRD) Af Amer 78, Est GFR (MDRD) Non-Af 65, BUN/Creatinine Ratio 16.3, Glucose 145 H, Calcium 8.8, Troponin I < 0.015 09/18/18 15:14: PT 13.4, INR 1.0, APTT 28.0, D-Dimer Quant (PE/DVT) 0.30 09/18/18 20:35: Troponin I < 0.015 09/18/18 22:16: POC Glucose 129 H 09/19/18 01:05: Troponin I < 0.015 09/19/18 01:05: APTT 82.2 H 09/19/18 04:45: Sodium 140, Potassium 3.7, Chloride 106, Carbon Dioxide 27.0, Anion Gap 7, BUN 13, Creatinine 0.77, Estim Creat Clear Calc 57.61, Est GFR (MDRD) Af Amer 97, Est GFR (MDRD) Non-Af 80, BUN/Creatinine Ratio 16.9, Glucose 160 H, Calcium 7.4 L 09/19/18 06:53: POC Glucose 154 H 09/19/18 07:45: APTT 52.9 H Current Medications Aspirin (Aspirin, Baby) 81 mg PO DAILY@0800 [facility] Last Admin: 09/19/18 08:10 Dose: 81 mg Atorvastatin Calcium (Lipitor) 80 mg PO QHS [facility] Last Admin: 09/18/18 22:20 Dose: 80 mg Carvedilol (Coreg) 6.25 mg PO BID [facility] Clopidogrel Bisulfate (Plavix) 75 mg PO DAILY [facility] Cyclobenzaprine HCl (Flexeril) 10 mg PO TID PRN PRN PRN Reason: muscle spasm Dextrose (D50w Syringe) 0 gm IV X1 PRN; Protocol PRN Reason: Hypoglycemia Dicyclomine HCl (Bentyl) 20 mg PO TIDAC PRN PRN Reason: PAIN Divalproex Sodium (Depakote Er) 1,000 mg PO QHS [facility] Last Admin: 09/18/18 22:20 Dose: 1,000 mg Gabapentin (Neurontin) 600 mg PO BID [facility] Last Admin: 09/18/18 22:26 Dose: 600 mg Glucagon () 1 mg IM .X1 PRN PRN Reason: Hypoglycemia [facility] Last Admin: 09/19/18 08:10 Dose: 200 mg Sodium Chloride () 1,000 mls @ 100 mls/hr IV .Q10H [facility] Last Admin: 09/18/18 22:18 Dose: 100 mls/hr Heparin Sodium/Dextrose () 25,000 units in 250 mls @ 10 mls/hr IV .Q25H [facility]; Protocol Last Admin: 09/18/18 21:33 Dose: Not Given Nitroglycerin/Dextrose () 250 mls @ 3 mls/hr CONT INF .[id number] [facility] Last Admin: 09/19/18 06:03 Dose: 3 mls/hr Sodium Chloride () 250 mls @ 15 mls/hr IV .[id number] PRN PRN Reason: SALINE FLUSH Insulin Glargine (Lantus (Bkc)) 5 units SC QHS [facility] Last Admin: 09/18/18 22:18 Dose: 5 u Insulin Human Lispro (Humalog Kwikpen (Bkc)) 0 unit SQ ACHS [facility]; Protocol Last Admin: 09/19/18 08:15 Dose: 2 units Losartan Potassium (Cozaar) 25 mg PO DAILY [facility] Metoprolol Tartrate (Lopressor (Beta Arnold)) 5 mg IV Q6H PRN PRN PRN Reason: For HR > 100 Morphine Sulfate () 2 mg IV Q3H PRN PRN PRN Reason: Chest Pain Last Admin: 09/19/18 01:15 Dose: 2 mg Sodium Chloride () 5 - 15 ml IV UD PRN PRN Reason: SALINE FLUSH Last Admin: 09/18/18 21:59 Dose: 10 ml Medical Necessity - Tobacco Use Smoking Status: Never smoker Assessment/Plan All Active Problems (Last Reviewed 08/02/18 @ 13:19 by Alison Alcala) Angina at rest (Acute) Angina pectoris (Acute) Left shoulder pain (Acute) History of coronary artery stent placement (Resolved 03/22/18) 1. Unstable angina/CAD status post 2 stents with a re-in-stent thrombosis/HLD/HTN/chronic diastolic CHF -Because of her tachycardia and her blood pressure as well as her unstable a ngina she was started on a heparin drip as well as a nitro drip and she was given PRN Lopressor -We will restart her Coreg and hopefully be able to titrate down her nitro drip a little bit given that her blood pressure has returned to somewhat normal levels -Continue with her statin -Aspirin and Plavix -Appreciate cardiology input -She had a stress test in July which was normal however so was a stress test in March prior to her cardiac cath and necessitated 2 stents -May need to have an echo on Thursday as well as a cath -Serial troponins were normal 2. Type 2 diabetes -We will hold her glimepiride -Continue with Levemir 5 units at night as well as a sliding scale insulin -Check blood sugars before meals at bedtime 3. Seizure disorder -Her last seizure was about 2 years ago -Continue with her home Depakote 4. RA -There is a significant association between rheumatoid arthritis and coronary artery disease -She is currently on Plaquenil but may need to be on something more in the setting of her CAD 5. Urinary frequency -Stable -Continue with Kalliyl DVT: Heparin drip Code Visit OBSV E&M: [id number] Subsequent observation care L2
[2018-09-19] MEDS: Clopidogrel Bisulfate 75 MG Tablet PO (10:27)
[2018-09-19] MEDS: Carvedilol 6.25 MG Tablet PO (10:27)
[2018-09-19] MEDS: Losartan Potassium 25 MG Tablet PO ×2 (10:28→16:49)
[2018-09-19] MEDS: Gabapentin 600 MG Tablet PO ×2 (10:28→22:10)
--- NOTE | 2018-09-19 10:28 | PN.CARD_ITS ---
Subjectve: The patient has been resting comfortably and sleeping. She has had no new acute complaints. Objective: Vital Signs Temp Pulse Resp BP Pulse Ox 99.4 F H 103 H 17 115/51 L 95 09/19/18 08:00 09/19/18 09:30 09/19/18 09:30 09/19/18 09:30 09/19/18 09:30 Oxygen Flow Rate (L/min) 2 Oxygen Delivery Method Room Air Weight: 185 lb 13.595 oz Body Mass Index (BMI) 33.0 Finger Stick Blood Glucose 173 Intake and Output for Last 24 Hours 09/17/18 09/18/18 09/19/18 23:59 23:59 23:59 Intake Total 1905 / 1905 Output Total 500 / 500 Balance 1405 / 1405 General: Awake, Alert, Oriented x 3, Cooperative, No Acute Distress HEENT: Atraumatic, Normocephalic, PERRL, EOMI, Sclera Non Icteric Oral: Moist Mucosa Neck: Supple, Good ROM, No JVD Lungs: Clear to auscultation Cardiovascular: Regular Rhythm, Normal S1, Normal S2 Vascular: No Carotid Bruits Abdomen: Bowel Sounds Present, Soft, Non Tender Extremities: No Cyanosis, No Clubbing, No edema Neurological: No Focal Motor or Sensory Deficit Psych/Mental Status: Appropriate 09/18/18 01:05: Troponin I Cancelled 09/18/18 15:14: WBC 11.9 H, RBC 4.24, Hgb 13.0, Hct 39.0, MCV 92.0, MCH 30.7, MCHC 33.3, RDW 13.1, RDW Differential 43.0, Plt Count 207, MPV 11.0, Immature Gran % (Auto) 0.200, Neut % (Auto) 85.6 H, Lymph % (Auto) 10.2 L, [place] % (Auto) 3.6, Eos % (Auto) 0.3, Baso % (Auto) 0.1, Absolute Neuts (auto) 10.1 H, Total Counted Not Reportable 09/18/18 15:14: Sodium 142, Potassium 3.9, Chloride 106, Carbon Dioxide 28.0, Anion Gap 8, BUN 15, Creatinine 0.92, Est GFR (MDRD) Af Amer 78, Est GFR (MDRD) Non-Af 65, BUN/Creatinine Ratio 16.3, Glucose 145 H, Calcium 8.8, Troponin I < 0.015 09/18/18 15:14: PT 13.4, INR 1.0, APTT 28.0, D-Dimer Quant (PE/DVT) 0.30 09/18/18 20:35: Troponin I < 0.015 09/19/18 01:05: Troponin I < 0.015 09/19/18 01:05: APTT 82.2 H 09/19/18 04:45: Sodium 140, Potassium 3.7, Chloride 106, Carbon Dioxide 27.0, Anion Gap 7, BUN 13, Creatinine 0.77, Est GFR (MDRD) Af Amer 97, Est GFR (MDRD) Non-Af 80, BUN/Creatinine Ratio 16.9, Glucose 160 H, Calcium 7.4 L 09/19/18 07:45: APTT 52.9 H Rhythm: Sinus rhythm EKG: Sinus rhythm; no acute ECG changes Medical Necessity - Tobacco Use Smoking Status: Never smoker Assessment/Plan 1. Angina pectoris: Unstable The patient presents with symptoms which she states is similar to symptoms she had in March 2018 prior to her cardiovascular diagnosis leading to her CAD and subsequent PCI of her LAD and RCA systems. She also had symptoms prior to her chest discomfort/left upper extremity dis comfort earlier today with headache and abdominal discomfort with associated frequent loose bowel movements. It is unclear as to whether the symptoms are related to underlying cardiovascular disease or a separate etiology. It is also unclear as to whether the symptoms are the etiology for her chest and left upper extremity discomfort noting that despite waxing and waning and prolonged symptoms throughout the past week and today her cardiac enzymes have remained negative and her ECG is demonstrated no acute ECG changes. At the present time she remains in the ICU. Her cardiac enzymes remain negative. Her follow-up ECG demonstrates no new acute ECG changes. A transthoracic echocardiogram will be requested to evaluate her left ventricular wall motion and systolic function. She will continue medical management with a combination of medications as deemed appropriate. However, she may require further evaluation in the cardiac catheterization laboratory, whether her noninvasive studies remain unremarkable or not, to reassess her coronary anatomy for progression of disease or in-stent restenosis that would require further catheter-based revascularization therapy, unless there is another etiology to clearly explain her symptoms, etc. 2. CAD status post PCI Again, she states her symptoms are similar to what she had in March 2018. She has recently undergone noninvasive evaluation with an exercise tolerance test in July of this year. Her myocardial perfusion study was considered negative and her gated LV systolic function was reported as normal. However she now presents with the aforementioned clinical scenario. She will continue to be monitored as noted above. She will continue evaluation care as noted above. 3. Hyperlipidemia She will continue medical therapy and follow-up. 4. Hypertension She will continue medical management with adjustment as deemed appropriate. Overall she will continue in the ICU and have continued cardiovascular monitoring and further noninvasive and/or invasive evaluation as deemed appropriate. She will be tentatively scheduled for diagnostic cardiac catheterization tomorrow per Dr. Johnson barring unforeseen change in her clinical course in the interim. She also may need to be considered by internal medicine for further evaluation of her headache, abdominal discomfort, and loose bowel movements as deemed appropriate. Comment: The above was discussed and reviewed with the patient, the [facility] hospitalist staff, and the [facility] ICU staff. This note was generated using a voice recognition system and there may be incorrect words, spelling or punctuation that were not noted when reviewing the office note prior to saving.
[2018-09-19] MEDS: Isosorbide Mononitrate 30 MG Tablet PO (11:35)
[2018-09-19 11:55] LABS: Bedside Glucose 170 mg/dL (70-110)
--- NOTE | 2018-09-19 17:42 | NURSING ---
ed re chronic illness deferred till pt able to stay awake for longer than 5min.
[2018-09-19 18:06] LABS: Bedside Glucose 71 mg/dL (70-110)
[2018-09-19] MEDS: HEPARIN/D5w 25,000 UNITS 25,000 UNITS/250 ML IV.SOLN. 9.5 UNITS IV (22:08)
[2018-09-19] MEDS: Atorvastatin Calcium 80 MG Tablet PO (22:10)
[2018-09-19] MEDS: Divalproex (ER) 500 MG Tablet 1000 MG PO (22:10)
[2018-09-19] MEDS: Carvedilol 12.5 MG Tablet PO (22:18)
[2018-09-19] MEDS: Losartan Potassium 50 MG Tablet PO (22:18)
[2018-09-19 22:25] LABS: Bedside Glucose 134 mg/dL (70-110)
[2018-09-19 23:40] LABS: Partial Thromboplast Time 67.2 Seconds (24.1-36.2)
[2018-09-20] VITALS (16 sets, daily range): BP systolic 94–130; BP diastolic 51–91; PULSE 76–99; RESP 15–20; TEMP 36.4–37.2; O2SAT 93–100
[2018-09-20 04:31] LABS: Hematocrit 28.5 % (37-47); Hemoglobin 9.4 g/dl (12.0-15.0); Mean Corpuscular Hgb 30.6 pg (27.0-32.0); Mean Corpuscular Volume 92.8 fL (81-99); Mean Platelet Vol. 10.3 fl (6.2-12.0); Platelet Count 154 K/mm3 (150-450); RBC Distribution Width CV 13.7 % (11.6-14.6); RBC Distribution Width SD 46.4 fl (35.1-43.9); Red Blood Count 3.07 M/mm3 (4.2-5.4); White Blood Count 10.1 K/mm3 (4.4-11.0)
[2018-09-20 04:36] LABS: International Normalized Ratio 1.1; Prothrombin Time (Protime)PT. 14.4 SECONDS (11.7-14.9)
[2018-09-20 04:37] LABS: Partial Thromboplast Time 55.3 Seconds (24.1-36.2)
[2018-09-20 04:42] LABS: Anion Gap 6 (5-15); BUN 13 mg/dL (7-18); BUN/Creat Ratio 15.7 RATIO (10-20); Calcium,Total 7.9 mg/dL (8.5-10.1); Chloride 112 mmol/L (98-107); Creatinine, Serum 0.83 mg/dL (0.55-1.02); EST Glomerular Filtration Rate 73 mL/min (>60); Est Glom Filt Rate - Afr Amer 89 mL/min (>60); Estimated Creatinine Clearance 53.45 ml/min; Glucose 111 mg/dL (74-106); Potassium 3.9 mmol/L (3.5-5.1); Sodium Level 146 mmol/L (136-145)
[2018-09-20 04:45] LABS: Scan Indicated on CBC? Y/N NO
[2018-09-20] MEDS: Carvedilol 12.5 MG Tablet PO (05:44)
[2018-09-20] MEDS: Aspirin 81 MG TAB.CHEW PO (05:44)
[2018-09-20] MEDS: Isosorbide Mononitrate 30 MG Tablet PO (05:44)
[2018-09-20] MEDS: Losartan Potassium 50 MG Tablet PO (05:44)
[2018-09-20] MEDS: Clopidogrel Bisulfate 75 MG Tablet PO (05:44)
[2018-09-20 05:51] LABS: Bedside Glucose 108 mg/dL (70-110)
--- NOTE | 2018-09-20 05:55 | EKG12_ITS ---
Test Reason : CP Blood Pressure : / mmHG Vent. Rate : 090 BPM Atrial Rate : 090 BPM P-R Int : 158 ms QRS Dur : 082 ms QT Int : 372 ms P-R-T Axes : 070 012 021 degrees QTc Int : 455 ms Normal sinus rhythm Normal ECG When compared with ECG of 18-SEP-2018 20:52, MANUAL COMPARISON REQUIRED, DATA IS UNCONFIRMED Confirmed by RADHIKA ZUNIGA, KELLY ([id number]), health editor CLAUDIA HECTOR ([id number]) on 09/21/2018 11:24:57 AM Referred By: LESTER Confirmed By:KELLY GARRIDO MD
--- NOTE | 2018-09-20 06:50 | NURSING ---
Transported to physical laboratory assistant with physical laboratory assistant RN.
--- NOTE | 2018-09-20 07:08 | PCM.PN.HOSP ---
Patient Problems: Active and Suspected Problems (Last Reviewed 08/02/18 @ 13:19 by Alison Alcala) Angina at rest (Acute) Angina pectoris (Acute) Subjective: Patient with no acute events overnight per self and per nursing report. Patient had no further chest discomfort overnight and cardiac catheterization fortunately it was unchanged from prior with only regimen changes with transition off nitroglycerin drip to isosorbide. Patient currently status post cardiac cardiac catheterization, feeling well, notes mild headache otherwise no acute complaints. Patient denies fevers, chills, nausea, emesis, abdominal pain, recurrent or worsened chest pain or dyspnea. Objective: Physical Examination: General: awake, alert, oriented x 3 and cooperative, laying in the ICU bed in no apparent distress. Skin: normal color, turgor, no icterus, cyanosis, s/p cardiac catheterization, on bedrest. HEENT: AT/NC, EOMI, PERRLA, mildly dry MM. Lungs: CTA bilaterally, moderate effort, mild decrease BL bases, no rales, ronchi or wheezing. Heart: Regular rate and rhythm; no gallop, rub audible. Abdomen: soft, obese, NTTP, ND, normal BS. Extremities: no cyanosis, clubbing, or edema, s/p cardiac catheterization, on bedrest. Neurological: patient awake, alert, oriented x 3; cognitive function intact; pupils equally reactive to light and accomodation; cranial nerves II-XII grossly normal, moving all 4 extremities; however, limited given recent cardiac catheterization on bedrest. Psychiatric: affect appears fatigued, no acute evidence of depressive or anxiety feelings. Vitals/I&O's: Vital Signs Temp Pulse Resp BP Pulse Ox 98.9 F 97 20 H 130/51 H 98 09/20/18 05:49 09/20/18 05:49 09/20/18 05:49 09/20/18 05:49 09/20/18 05:49 Oxygen Flow Rate (L/min) 2 Oxygen Delivery Method Room Air Weight: 181 lb 10.574 oz Body Mass Index (BMI) 33.0 Finger Stick Blood Glucose 173 Intake and Output for Last 24 Hours 09/18/18 09/19/18 09/20/18 23:59 23:59 23:59 Intake Total 4312.7 / 4312.7 144.7 / 144.7 Output Total 1300 / 1300 Balance 3012.7 / 3012.7 144.7 / 144.7 Laboratory Results 09/19/18 07:45: APTT 52.9 H 09/19/18 11:37: POC Glucose 170 H 09/19/18 15:45: APTT 42.0 H 09/19/18 17:57: POC Glucose 71 09/19/18 22:17: POC Glucose 134 H 09/19/18 23:15: APTT 67.2 H 09/20/18 04:20: WBC 10.1, RBC 3.07 L, Hgb 9.4 L, Hct 28.5 L, MCV 92.8, MCH 30.6, MCHC 33.0, RDW 13.7, RDW Differential 46.4 H, Plt Count 154, MPV 10.3 09/20/18 04:20: PT 14.4, INR 1.1, APTT 55.3 H 09/20/18 04:20: Sodium 146 H, Potassium 3.9, Chloride 112 H, Carbon Dioxide 28.0, Anion Gap 6, BUN 13, Creatinine 0.83, Estim Creat Clear Calc 53.45, Est GFR (MDRD) Af Amer 89, Est GFR (MDRD) Non-Af 73, BUN/Creatinine Ratio 15.7, Glucose 111 H, Calcium 7.9 L 09/20/18 05:42: POC Glucose 108 Current Medications Aspirin (Aspirin, Baby) 81 mg PO DAILY@0800 [facility] Last Admin: 09/20/18 05:44 Dose: 81 mg Atorvastatin Calcium (Lipitor) 80 mg PO QHS [facility] Last Admin: 09/19/18 22:10 Dose: 80 mg Carvedilol (Coreg) 12.5 mg PO BID [facility] Last Admin: 09/20/18 05:44 Dose: 12.5 mg Clopidogrel Bisulfate (Plavix) 75 mg PO DAILY [facility] Last Admin: 09/20/18 05:44 Dose: 75 mg Cyclobenzaprine HCl (Flexeril) 10 mg PO TID PRN PRN PRN Reason: muscle spasm Dextrose (D50w Syringe) 0 gm IV X1 PRN; Protocol PRN Reason: Hypoglycemia Dicyclomine HCl (Bentyl) 20 mg PO TIDAC PRN PRN Reason: PAIN Divalproex Sodium (Depakote Er) 1,000 mg PO QHS [facility] Last Admin: 09/19/18 22:10 Dose: 1,000 mg Gabapentin (Neurontin) 600 mg PO BID [facility] Last Admin: 09/19/18 22:10 Dose: 600 mg Glucagon () 1 mg IM .X1 PRN PRN Reason: Hypoglycemia [facility]) [facility] Last Admin: 09/19/18 18:02 Dose: 200 mg Heparin Sodium/Dextrose () 25,000 units in 250 mls @ 9.5 mls/hr IV .[id number] [facility]; Protocol Last Admin: 09/19/18 22:08 Dose: 9.5 mls/hr Sodium Chloride () 250 mls @ 15 mls/hr IV .[id number] PRN PRN Reason: SALINE FLUSH Sodium Chloride () 1,000 mls @ 0 mls/hr IV .Q0M [facility] Nitroglycerin/Dextrose () 250 mls @ 3 mls/hr CONT INF .[id number] [facility] Last Admin: 09/19/18 11:35 Dose: Not Given Insulin Glargine (Lantus (Bkc)) 5 units SC QHS [facility] Last Admin: 09/19/18 22:22 Dose: Not Given Insulin Human Lispro (Humalog Kwikpen (Bkc)) 0 unit SQ ACHS [facility]; Protocol Last Admin: 09/20/18 06:03 Dose: Not Given Isosorbide Mononitrate (Imdur) 30 mg PO DAILY [facility] Last Admin: 09/20/18 05:44 Dose: 30 mg Losartan Potassium (Cozaar) 50 mg PO BID [facility] Last Admin: 09/20/18 05:44 Dose: 50 mg Metoprolol Tartrate (Lopressor (Beta Arnold)) 5 mg IV Q6H PRN PRN PRN Reason: For HR > 100 Morphine Sulfate () 2 mg IV Q3H PRN PRN PRN Reason: Chest Pain Last Admin: 09/19/18 01:15 Dose: 2 mg Sodium Chloride () 5 - 15 ml IV UD PRN PRN Reason: SALINE FLUSH Last Admin: 09/18/18 21:59 Dose: 10 ml Medical Necessity - Tobacco Use Smoking Status: Never smoker Assessment/Plan All Active Problems (Last Reviewed 08/02/18 @ 13:19 by Alison Alcala) Angina at rest (Acute) Angina pectoris (Acute) Left shoulder pain (Acute) History of coronary artery stent placement (Resolved 03/22/18) The patient is a 67 y/o F w/ PMHx: Rheumatoid Arthritis, Chronic Diastolic CHF, CAD s/p PCI, Diabetes mellitus type II, Obesity, HTN, HLD, LINA who presents to the [facility] ED on 09/18/18 with history of ongoing history of intermittent chest discomfort which progressively worsened over the last several days with associated dyspnea with radiation from the left side of the chest to the left extremity. (1) Chest pain w/ Stable appearing Cardiac catheterization: EKG in ED w/ sinus tachycardia with no acute evidence of ischemia, CXR w/ no acute cardiopulmonary findings. Admitted to the ICU, maintained on heparin drip, maintain on a monitored bed, serial cardiac enzymes remained unremarkable, continue medical management w/ asa, BB and ARB increased, isosorbide added, NG drip initially transitioned as noted to isosorbide. Cardiology consulted, 09/20/18 cardiac catheterization with no acute PCI needs, with noted normal left main coronary artery, left anterior descending artery stent patent with distal disease unchanged, left circumflex artery with ostial 40 to 50% stenosis and ostial mid circumflex 50 to 60% stenosis unchanged from prior, right coronary artery stent patent and distal ostial posterior lateral branch with 60 to 70% stenosis unchanged from previous, preserved ejection fraction with recommendation for continued medical management with noted also recent July 2018 unremarkable cardiac stress testing. Given stable appearing cardiac catheterization, improved on medical therapy changes, plan discharge today. (2) CAD: Hx mid LAD lesion of 75% distal LAD lesion of 70%, mid RCA 50% and a right PDA of 70% s/p PCI mid LAD which also had an in-stent restenosis w/ also proximal RCA stent, maintain on asa, plavix, coreg, losartan, statin. (3) Diastolic CHF: 10/19/17 ECHO w/ normal LV function, EF 60%, transmitral diastolic flow velocity suggestive of stage I diastolic dysfunction maintain on asa, plavix, ARB, statin therapy. Repeat ECHO pending. (4) Diabetes mellitus type II: Hold oral home regimen, n.p.o. status currently with transition once appropriate to ADA diet, accu checks w/ ISS, nutrition consulted for education and teaching, hemoglobin A1c pending w/ most recent 06/2018 7.4%. (5) Hypertension: Continue home regimen including Coreg, losartan, isosorbide added, PRN hydralazine. (6) Hyperlipidemia: Continue home statin regimen. AM FLP. (7) Obesity: Weight loss and lifestyle changes encouraged. (8) Rheumatoid Arthritis: Continue home Plaquenil regimen. (9) DVT prophylaxis: SCDs, heparin drip as noted.
--- NOTE | 2018-09-20 07:22 | PN_ITS ---
Patient Problems: Active and Suspected Problems (Last Reviewed 08/02/18 @ 13:19 by Alison Alcala) Angina at rest (Acute) Angina pectoris (Acute) Subjective: Patient with no acute events overnight per self and per nursing report. Patient had no further chest discomfort overnight and cardiac catheterization fortunately it was unchanged from prior with only regimen changes with transition off nitroglycerin drip to isosorbide. Patient currently status post cardiac cardiac catheterization, feeling well, notes mild headache otherwise no acute complaints. Patient denies fevers, chills, nausea, emesis, abdominal pain, recurrent or worsened chest pain or dyspnea. Objective: Physical Examination: General: awake, alert, oriented x 3 and cooperative, laying in the ICU bed in no apparent distress. Skin: normal color, turgor, no icterus, cyanosis, s/p cardiac catheterization, on bedrest. HEENT: AT/NC, EOMI, PERRLA, mildly dry MM. Lungs: CTA bilaterally, moderate effort, mild decrease BL bases, no rales, ronchi or wheezing. Heart: Regular rate and rhythm; no gallop, rub audible. Abdomen: soft, obese, NTTP, ND, normal BS. Extremities: no cyanosis, clubbing, or edema, s/p cardiac catheterization, on bedrest. Neurological: patient awake, alert, oriented x 3; cognitive function intact; pupils equally reactive to light and accomodation; cranial nerves II-XII grossly normal, moving all 4 extremities; however, limited given recent cardiac catheterization on bedrest. Psychiatric: affect appears fatigued, no acute evidence of depressive or anxiety feelings. Vitals/I&O's: Vital Signs Temp Pulse Resp BP Pulse Ox 98.9 F 97 20 H 130/51 H 98 09/20/18 05:49 09/20/18 05:49 09/20/18 05:49 09/20/18 05:49 09/20/18 05:49 Oxygen Flow Rate (L/min) 2 Oxygen Delivery Method Room Air Weight: 181 lb 10.574 oz Body Mass Index (BMI) 33.0 Finger Stick Blood Glucose 173 Intake and Output for Last 24 Hours 09/18/18 09/19/18 09/20/18 23:59 23:59 23:59 Intake Total 4312.7 / 4312.7 144.7 / 144.7 Output Total 1300 / 1300 Balance 3012.7 / 3012.7 144.7 / 144.7 Laboratory Results 09/19/18 07:45: APTT 52.9 H 09/19/18 11:37: POC Glucose 170 H 09/19/18 15:45: APTT 42.0 H 09/19/18 17:57: POC Glucose 71 09/19/18 22:17: POC Glucose 134 H 09/19/18 23:15: APTT 67.2 H 09/20/18 04:20: WBC 10.1, RBC 3.07 L, Hgb 9.4 L, Hct 28.5 L, MCV 92.8, MCH 30.6, MCHC 33.0, RDW 13.7, RDW Differential 46.4 H, Plt Count 154, MPV 10.3 09/20/18 04:20: PT 14.4, INR 1.1, APTT 55.3 H 09/20/18 04:20: Sodium 146 H, Potassium 3.9, Chloride 112 H, Carbon Dioxide 28.0, Anion Gap 6, BUN 13, Creatinine 0.83, Estim Creat Clear Calc 53.45, Est GFR (MDRD) Af Amer 89, Est GFR (MDRD) Non-Af 73, BUN/Creatinine Ratio 15.7, Glucose 111 H, Calcium 7.9 L 09/20/18 05:42: POC Glucose 108 Current Medications Aspirin (Aspirin, Baby) 81 mg PO DAILY@0800 [facility] Last Admin: 09/20/18 05:44 Dose: 81 mg Atorvastatin Calcium (Lipitor) 80 mg PO QHS [facility] Last Admin: 09/19/18 22:10 Dose: 80 mg Carvedilol (Coreg) 12.5 mg PO BID [facility] Last Admin: 09/20/18 05:44 Dose: 12.5 mg Clopidogrel Bisulfate (Plavix) 75 mg PO DAILY [facility] Last Admin: 09/20/18 05:44 Dose: 75 mg Cyclobenzaprine HCl (Flexeril) 10 mg PO TID PRN PRN PRN Reason: muscle spasm Dextrose (D50w Syringe) 0 gm IV X1 PRN; Protocol PRN Reason: Hypoglycemia Dicyclomine HCl (Bentyl) 20 mg PO TIDAC PRN PRN Reason: PAIN Divalproex Sodium (Depakote Er) 1,000 mg PO QHS [facility] Last Admin: 09/19/18 22:10 Dose: 1,000 mg Gabapentin (Neurontin) 600 mg PO BID [facility] Last Admin: 09/19/18 22:10 Dose: 600 mg Glucagon () 1 mg IM .X1 PRN PRN Reason: Hypoglycemia [facility]xychloroquine [facility]) [facility] Admin: 09/19/18 18:02 Dose: 200 mg Heparin Sodium/Dextrose () 25,000 units in 250 mls @ 9.5 mls/hr IV .[id number] [facility]; Protocol Last Admin: 09/19/18 22:08 Dose: 9.5 mls/hr Sodium Chloride () 250 mls @ 15 mls/hr IV .[id number] PRN PRN Reason: SALINE FLUSH Sodium Chloride () 1,000 mls @ 0 mls/hr IV .Q0M [facility] Nitroglycerin/Dextrose () 250 mls @ 3 mls/hr CONT INF .[id number] [facility] Last Admin: 09/19/18 11:35 Dose: Not Given Insulin Glargine (Lantus (Bkc)) 5 units SC QHS [facility] Last Admin: 09/19/18 22:22 Dose: Not Given Insulin Human Lispro (Humalog Kwikpen (Bkc)) 0 unit SQ ACHS [facility]; Protocol Last Admin: 09/20/18 06:03 Dose: Not Given Isosorbide Mononitrate (Imdur) 30 mg PO DAILY [facility] Last Admin: 09/20/18 05:44 Dose: 30 mg Losartan Potassium (Cozaar) 50 mg PO BID [facility] Last Admin: 09/20/18 05:44 Dose: 50 mg Metoprolol Tartrate (Lopressor (Beta Arnold)) 5 mg IV Q6H PRN PRN PRN Reason: For HR > 100 Morphine Sulfate () 2 mg IV Q3H PRN PRN PRN Reason: Chest Pain Last Admin: 09/19/18 01:15 Dose: 2 mg Sodium Chloride () 5 - 15 ml IV UD PRN PRN Reason: SALINE FLUSH Last Admin: 09/18/18 21:59 Dose: 10 ml Medical Necessity - Tobacco Use Smoking Status: Never smoker Assessment/Plan All Active Problems (Last Reviewed 08/02/18 @ 13:19 by Alison Alcala) Angina at rest (Acute) Angina pectoris (Acute) Left shoulder pain (Acute) History of coronary artery stent placement (Resolved 03/22/18) The patient is a 67 y/o F w/ PMHx: Rheumatoid Arthritis, Chronic Diastolic CHF, CAD s/p PCI, Diabetes mellitus type II, Obesity, HTN, HLD, LINA who presents to the [facility] ED on 09/18/18 with history of ongoing history of intermittent chest discomfort which progressively worsened over the last several days with associated dyspnea with radiation from the left side of the chest to the left extremity. (1) Chest pain w/ Stable appearing Cardiac catheterization: EKG in ED w/ sinus tachycardia with no acute evidence of ischemia, CXR w/ no acute cardiopulmonary findings. Admitted to the ICU, maintained on heparin drip, maintain on a monitored bed, serial cardiac enzymes remained unremarkable, continue medical management w/ asa, BB and ARB increased, isosorbide added, NG drip initially transitioned as noted to isosorbide. Cardiology consulted, 09/20/18 cardiac catheterization with no acute PCI needs, with noted normal left main coronary artery, left anterior descending artery stent patent with distal disease unchanged, left circumflex artery with ostial 40 to 50% stenosis and ostial mid circumflex 50 to 60% stenosis unchanged from prior, right coronary artery stent patent and distal ostial posterior lateral branch with 60 to 70% stenosis unchanged from previous, preserved ejection fraction with recommendation for continued medical management with noted also recent July 2018 unremarkable cardiac stress testing. Given stable appearing cardiac catheterization, improved on medical therapy changes, plan discharge today. (2) CAD: Hx mid LAD lesion of 75% distal LAD lesion of 70%, mid RCA 50% and a right PDA of 70% s/p PCI mid LAD which also had an in-stent restenosis w/ also proximal RCA stent, maintain on asa, plavix, coreg, losartan, statin. (3) Diastolic CHF: 10/19/17 ECHO w/ normal LV function, EF 60%, transmitral diastolic flow velocity suggestive of stage I diastolic dysfunction maintain on asa, plavix, ARB, statin therapy. Repeat ECHO pending. (4) Diabetes mellitus type II: Hold oral home regimen, n.p.o. status currently with transition once appropriate to ADA diet, accu checks w/ ISS, nutrition co nsulted for education and teaching, hemoglobin A1c pending w/ most recent 06/2018 7.4%. (5) Hypertension: Continue home regimen including Coreg, losartan, isosorbide added, PRN hydralazine. (6) Hyperlipidemia: Continue home statin regimen. AM FLP. (7) Obesity: Weight loss and lifestyle changes encouraged. (8) Rheumatoid Arthritis: Continue home Plaquenil regimen. (9) DVT prophylaxis: SCDs, heparin drip as noted.
--- NOTE | 2018-09-20 07:56 | PN.CARD_ITS ---
Subjectve: Patient seen and evaluated. Objective: Vital Signs Temp Pulse Resp BP Pulse Ox 98.9 F 97 20 H 130/51 H 98 09/20/18 05:49 09/20/18 05:49 09/20/18 05:49 09/20/18 05:49 09/20/18 05:49 Oxygen Flow Rate (L/min) 2 Oxygen Delivery Method Room Air Weight: 181 lb 10.574 oz Body Mass Index (BMI) 33.0 Finger Stick Blood Glucose 173 Intake and Output for Last 24 Hours 09/18/18 09/19/18 09/20/18 23:59 23:59 23:59 Intake Total 4312.7 / 4312.7 144.7 / 144.7 Output Total 1300 / 1300 Balance 3012.7 / 3012.7 144.7 / 144.7 General: Awake, Alert, Oriented x 3 HEENT: PERRL, EOMI, Sclera Non Icteric Neck: Supple, Good ROM, No Lymph Node Enlargement Lungs: Clear to auscultation Cardiovascular: Regular Rhythm, Normal S1, Normal S2, No Murmurs, No Rubs, No Gallops Vascular: No Carotid Bruits, Normal Femoral Pulses, Normal Radial Pulses, Normal Dorsalis Pedal Pulse, Normal Posterior Tibial Pulses Abdomen: Bowel Sounds Present, Soft, Non Tender, No HSM, No Organomegaly Extremities: No Cyanosis, No Clubbing, No edema Musculoskeletal: No Erythema Skin: No Rashes Lymphatic: No Lymph Node Enlargement Neurological: No Focal Motor or Sensory Deficit Psych/Mental Status: Appropriate 09/19/18 07:45: APTT 52.9 H 09/19/18 15:45: APTT 42.0 H 09/19/18 23:15: APTT 67.2 H 09/20/18 04:20: WBC 10.1, RBC 3.07 L, Hgb 9.4 L, Hct 28.5 L, MCV 92.8, MCH 30.6, MCHC 33.0, RDW 13.7, RDW Differential 46.4 H, Plt Count 154, MPV 10.3 09/20/18 04:20: PT 14.4, INR 1.1, APTT 55.3 H 09/20/18 04:20: Sodium 146 H, Potassium 3.9, Chloride 112 H, Carbon Dioxide 28.0, Anion Gap 6, BUN 13, Creatinine 0.83, Est GFR (MDRD) Af Amer 89, Est GFR (MDRD) Non-Af 73, BUN/Creatinine Ratio 15.7, Glucose 111 H, Calcium 7.9 L Rhythm: EKG: ECHO: Stress Test: Cardiac Cath: PCI: CT Surgery: Holter monitor: EPS: PPM: CXR: Chest CT Scan: Medical Necessity - Tobacco Use Smoking Status: Never smoker Assessment/Plan 1. Chest pain * Patient underwent cardiac catheterization today which demonstrated the following: Normal left main coronary artery. Left anterior descending artery previously stented patent. Distal disease unchanged. Left circumflex artery with ostial 40 to 50% stenosis and ostial mid circumflex 50 to 60% stenosis unchanged from prior. Right coronary artery with previously placed stent patent and distal ostial posterolateral branch with 60 to 70% stenosis unchanged from previous Preserved ejection fraction. Based on the above angiographic findings in comparison with the previous cardiac catheterization in March 2018 as well as the follow-up stress test in July 2018 I would suggest that we manage her with medical therapy. Her chest pain on presentation was noted to be atypical in addition. 2. Hypertension * Good control continue current medical therapy. Patient will continue with risk factor modification.
--- NOTE | 2018-09-20 08:02 | CL.D_ITS ---
Patient Name: LACY ALVARADO Study Date: 09/20/2018 Performing: Winston Johnson MD Ht: 61.81 inches 157 cm : 1950 Wt: 180.78 lbs 82 kg Age: 67 Gender: female BSA: 1.83 PROCEDURE(S) PERFORMED [facility]/COR/LV CLINICAL PROFILE AND INDICATIONS Indications: Suspected CAD Heart Failure: None Stress/Imaging Stress/Image Study Performed: No CAD Presentations: Symptom unlikely to be ischemic. CONCLUSIONS Previously placed stents are patent. There is residual ostial circumflex artery disease and ostial p osterolateral vessel disease which is unchanged compared to the previous catheterization from 8 month s ago. Besides stress test was noted to be normal in July Medical therapy DESCRIPTION OF PROCEDURE The patient arrived to the procedure lab. The risks and benefits of the procedure as well as a full d escription of our services here and current unavailability of surgical backup were fully explained to the patient and/or their significant other prior to the catheterization. The Timeout was completed, verifying the correct patient and procedure. The patient's procedural site was prepped and draped in the usual fashion. Local anesthetic was given subcutaneously to right groin region with Lidocaine 2%. Using a modified Seldinger technique, arterial access was obtained via the right femoral artery, a 5 Fr sheath was inserted. Left Coronary Artery selective angiography was performed in multiple views u sing a 5 Fr. JL4 catheter. Right Coronary Artery selective angiography was then performed in multiple views using a 5 Fr. 3DRC (Tj) catheter. Left Ventriculography was performed in LU projection using a 5 Fr. Pigtail catheter. LV to AO pullback pressures were then recorded.Contrast was injected through the sheath and the Right Iliac and Femoral artery were assessed for possible ольга sure device.The arterial sheath was pulled and a Mynx closure device was deployed for hemostasis CORONARY ANGIOGRAPHY DOMINANCE: Right Dominant LEFT HEART ASSESSMENT Left Ventricular Ejection Fraction: by LV Gram 65 % Normal LV wall motion Normal Left Ventricular systolic function LEFT MAIN: Angiographically normal LEFT ANTERIOR DESCENDING ARTERY: MID LAD: Previously placed stent is patent DISTAL LAD: Diffusely diseased up to 60 % CIRCUMFLEX ARTERY: OSTIAL CIRC: 50 % Stenosis MID CIRC: 50 % Stenosis RIGHT CORONARY ARTERY: RT PLV: 60 % Stenosis COMPLICATIONS No Complications PROCEDURE MEDICATIONS Versed 0.5 mg IV Versed 0.5 mg IV Oxygen: 2 L/min via nasal cannula SUMMARY OF HEMODYNAMIC DATA Time AIR REST ECG 07:09:31 AO 139/91 (114) SA 07:34:03 LV 108/2, 13 07:43:25 LV 108/3, 15 07:43:31 LV 114/-3, 19 07:44:16 LVp 111/-3, 16 07:44:19 AOp 98/48 (69) 07:44:25 08:19:20 Signed By Winston Johnson MD On 09/20/2018 8:21:25 AM Signed By Winston Johnson MD On 09/20/2018 08:01:34 Winston Johnson MD
--- NOTE | 2018-09-20 08:23 | DCINST_ITS ---
- Discharge Diagnoses Current Active Problems: Current Active and Chronic Problems (Last Reviewed 08/02/18 @ 13:19 by Alison Alcala) (1) Angina pectoris with no acute findings on cardiac catheterization (2) CAD (3) Diastolic CHF (4) Diabetes mellitus type II (5) Hypertension (6) Hyperlipidemia (7) Obesity (8) Rheumatoid Arthritis You will use the following diet at home:: Cardiac Your food should be the consistency of: Regular Your liquids should be the consistency of: Regular/Thin Discharge Activity: - - Activity parameters per cardiology given recent cardiac catheterization. Call your doctor if your incision/area has: Continuous Slow Oozing, Sudden Increased Bleeding, Increased Pain/ Swelling, Increased Redness, Foul Smelling Discharge, Swelling at the incision site Call your doctor if you observe: Fever of 101 or Higher, Inability to urinate, Inability to have a bowel movement, Shortness of breath, Dizziness, Fainting spells, Chest pain, Uncontrolled pain Instructions: Eating Heart-Healthy Food: Using the DASH Plan, Discharge Instructions for Angina, ED Chest Pain Angina Stable Additional Instructions: Please continue post cardiac catheterization care instructions per cardiology instruction. Upon discharge both your Coreg and losartan have been increased as well as addition of isosorbide with prescription sent to your preferred pharmacy listed. Allergies/Adverse Reactions: Allergies prednisone Adverse Reaction (Verified 07/16/18 08:58) Nausea Medications to take at Discharge Gabapentin 600 mg PO BID 02/23/13 Glimepiride [Amaryl] 2 mg PO DAILY 02/23/13 Hydroxychloroquine [Plaquenil] 200 mg PO BIDCM 02/23/13 Dicyclomine HCl [Bentyl] 20 mg PO TIDAC PRN #16 cap 12/25/15 Aspirin [Aspirin, Baby] 81 mg PO DAILY@0800 02/26/17 Cholecalciferol (Vitamin D3) [Vitamin D3] 2,000 unit PO DAILY 02/26/17 fluticasone propionate 50 mcg/actuation nasal spray,suspension 1 spray INTRANASAL BID #16 g 06/23/17 triamcinolone acetonide 0.025 % topical ointment 1 applic TOPICAL QDAY #80 g 09/10/17 divalproex ER 250 mg tablet,extended release 24 hr 1,000 mg PO QHS #120 tab 03/17/18 Cyclobenzaprine HCl 10 mg PO TID PRN PRN #30 tab 03/23/18 atorvastatin 80 mg tablet 80 mg PO QHS #90 tab 04/16/18 clopidogrel 75 mg tablet 75 mg PO DAILY #90 tab 04/16/18 Carvedilol [Coreg (Beta Arnold)] 12.5 mg PO BID #60 tablet 09/20/18 Isosorbide Mononitrate [Imdur] 30 mg PO DAILY #30 tablet 09/20/18 Losartan Potassium [Cozaar] 50 mg PO BID #60 tablet 09/20/18 The following prescriptions were given: Isosorbide Mononitrate [Imdur] 30 mg PO DAILY #30 tablet Carvedilol [Coreg (Beta Arnold)] 12.5 mg PO BID #60 tablet Losartan Potassium [Cozaar] 50 mg PO BID #60 tablet Primary Care Physician: Kannan Garcia MD [Primary Care Provider] - Please follow up with your Primary Care Physician in: Follow-up within 3-5 days to review admission. Test Results: Test results from this visit will be discussed in further detail at your follow- up appointment, if applicable. Please Follow Up With: Winston Johnson MD When: Follow-up with cardiology per their direction, office will call with appt. Proposed Discharge Date: 09/20/18
--- NOTE | 2018-09-20 08:24 | PCM.DC.SUM ---
Discharge Date and Diagnosis - Problem List Patient Problems: Active and Suspected Problems (Last Reviewed 08/02/18 @ 13:19 by Alison Alcala) Angina at rest (Acute) Angina pectoris (Acute) Date of Admission: 09/18/18 Date of Discharge: 09/20/18 - Primary Discharge Diagnosis Active and Suspected Problems (Last Reviewed 08/02/18 @ 13:19 by Alison Alcala) (1) Angina pectoris with no acute findings on cardiac catheterization (2) CAD (3) Diastolic CHF (4) Diabetes mellitus type II (5) Hypertension (6) Hyperlipidemia (7) Obesity (8) Rheumatoid Arthritis (9) ? Seizure disorder - Secondary Discharge Diagnosis Chronic Problems (Last Reviewed 08/02/18 @ 13:19 by Alison Alcala) CAD (coronary artery disease) (Chronic) Atherosclerosis of coronary artery of grayling heart with angina pectoris (Chronic) YESENIA to mid LAD (3.0 X 38 [employer]); YESENIA to mid-distal LAD ISR (2.5 X 38 [employer]); and YESENIA to proximal RCA (2.5 X12 [employer]) 03/22/18 Essential (primary) hypertension (Chronic) Chronic diastolic CHF (congestive heart failure) (Chronic) Hyperlipidemia (Chronic) Atherosclerotic heart disease of grayling coronary artery without angina pectoris (Chronic) YESENIA to mid LAD (3.0 X 38 [employer]); YESENIA to mid-distal LAD ISR (2.5 X 38 [employer]); and YESENIA to proximal RCA (2.5 X12 [employer]) 03/22/[address] Johnsno Cardiology Operations: None Procedures: Cardiac catheterization, EKG Summary of Care Provided: The patient is a 67 y/o F w/ PMHx: Rheumatoid Arthritis, Chronic Diastolic CHF, CAD s/p PCI, Diabetes mellitus type II, Obesity, HTN, HLD, LINA who presented to the [facility] ED on 09/18/18 with history of ongoing history of intermittent chest discomfort which progressively worsened over the last several days with associated dyspnea with radiation from the left side of the chest to the left extremity. EKG in ED w/ sinus tachycardia with no acute evidence of ischemia, CXR w/ no acute cardiopulmonary findings. Admitted to the ICU, maintained initially on heparin drip, maintained on a monitored bed, serial cardiac enzymes remained unremarkable, continued medical management w/ asa, BB and ARB increased, statin, isosorbide added. Cardiology consulted, 09/20/18 cardiac catheterization with no acute PCI needs, with noted normal left main coronary artery, left anterior descending artery stent patent with distal disease unchanged, left circumflex artery with ostial 40 to 50% stenosis and ostial mid circumflex 50 to 60% stenosis unchanged from prior, right coronary artery stent patent and distal ostial posterior lateral branch with 60 to 70% stenosis unchanged from previous, preserved ejection fraction with recommendation for continued medical management with noted also recent July 2018 unremarkable cardiac stress testing. Patient discharged to home in stable condition with medication changes as noted with plan for follow-up with cardiology as well as patient primary care physician. Patient Problems: Active and Suspected Problems (Last Reviewed 08/02/18 @ 13:19 by Alison Alcala) Angina at rest (Acute) Angina pectoris (Acute) - Physical Exam Vital Signs Temp Pulse Resp BP Pulse Ox 97.5 F L 92 19 H 94/62 97 09/20/18 08:00 09/20/18 08:00 09/20/18 08:00 09/20/18 08:00 09/20/18 08:00 Oxygen Flow Rate (L/min) 2 Oxygen Delivery Method Room Air Weight: 181 lb 10.574 oz Body Mass Index (BMI) 33.0 Finger Stick Blood Glucose 173 Intake and Output for Last 24 Hours 09/18/18 09/19/18 09/20/18 23:59 23:59 23:59 Intake Total 4312.7 / 4312.7 144.7 / 144.7 Output Total 1300 / 1300 Balance 3012.7 / 3012.7 144.7 / 144.7 Laboratory Tests Past 24 Hrs 09/19/18 09/19/18 09/19/18 07:45 15:45 23:15 WBC RBC Hgb Hct MCV MCH MCHC RDW RDW Differential Plt Count MPV PT INR APTT 52.9 H 42.0 H 67.2 H Sodium Potassium Chloride Carbon Dioxide Anion Gap BUN Creatinine Estim Creat Clear Calc Est GFR (MDRD) Af Amer Est GFR (MDRD) Non-Af BUN/Creatinine Ratio Glucose Calcium 09/20/18 09/20/18 09/20/18 04:20 04:20 04:20 WBC 10.1 RBC 3.07 L Hgb 9.4 L Hct 28.5 L MCV 92.8 MCH 30.6 MCHC 33.0 RDW 13.7 RDW Differential 46.4 H Plt Count 154 MPV 10.3 PT 14.4 INR 1.1 APTT 55.3 H Sodium 146 H Potassium 3.9 Chloride 112 H Carbon Dioxide 28.0 Anion Gap 6 BUN 13 Creatinine 0.83 Estim Creat Clear Calc 53.45 Est GFR (MDRD) Af Amer 89 Est GFR (MDRD) Non-Af 73 BUN/Creatinine Ratio 15.7 Glucose 111 H Calcium 7.9 L POC Glucose 09/20/18 09/19/18 09/19/18 05:42 22:17 17:57 POC Glucose 108 134 H 71 09/19/18 11:37 POC Glucose 170 H Discharge Activity: - - Activity parameters per cardiology given recent cardiac catheterization. Call your doctor if your incision/area has: Continuous Slow Oozing, Sudden Increased Bleeding, Increased Pain/ Swelling, Increased Redness, Foul Smelling Discharge, Swelling at the incision site Call your doctor if you observe: Fever of 101 or Higher, Inability to urinate, Inability to have a bowel movement, Shortness of breath, Dizziness, Fainting spells, Chest pain, Uncontrolled pain Home Medications: Medications to take at Discharge Gabapentin 600 mg PO BID 02/23/13 Glimepiride [Amaryl] 2 mg PO DAILY 02/23/13 Hydroxychloroquine [Plaquenil] 200 mg PO BIDCM 02/23/13 Dicyclomine HCl [Bentyl] 20 mg PO TIDAC PRN #16 cap 12/25/15 Aspirin [Aspirin, Baby] 81 mg PO DAILY@0800 02/26/17 Cholecalciferol (Vitamin D3) [Vitamin D3] 2,000 unit PO DAILY 02/26/17 fluticasone propionate 50 mcg/actuation nasal spray,suspension 1 spray INTRANASAL BID #16 g 06/23/17 triamcinolone acetonide 0.025 % topical ointment 1 applic TOPICAL QDAY #80 g 09/10/17 divalproex ER 250 mg tablet,extended release 24 hr 1,000 mg PO QHS #120 tab 03/17/18 Cyclobenzaprine HCl 10 mg PO TID PRN PRN #30 tab 03/23/18 atorvastatin 80 mg tablet 80 mg PO QHS #90 tab 04/16/18 clopidogrel 75 mg tablet 75 mg PO DAILY #90 tab 04/16/18 Carvedilol [Coreg (Beta Arnold)] 12.5 mg PO BID #60 tablet 09/20/18 Isosorbide Mononitrate [Imdur] 30 mg PO DAILY #30 tablet 09/20/18 Losartan Potassium [Cozaar] 50 mg PO BID #60 tablet 09/20/18 Following Prescrptions Were Given to Patient: Isosorbide Mononitrate [Imdur] 30 mg PO DAILY #30 tablet Carvedilol [Coreg (Beta Arnold)] 12.5 mg PO BID #60 tablet Losartan Potassium [Cozaar] 50 mg PO BID #60 tablet Primary Care Physician: Kannan Garcia MD [Primary Care Provider] - Please follow up with your Primary Care Physician in: Follow-up within 3-5 days to review admission. Please Follow Up With: Winston Johnson MD When: Follow-up with cardiology per their direction, office will call with appt. Patient Instructions: Eating Heart-Healthy Food: Using the DASH Plan, Discharge Instructions for Angina, ED Chest Pain Angina Stable Disposition: Home Minutes spent on discharge:: 35 Patient Condition:: Fair Medical Necessity - Tobacco Use Smoking Status: Never smoker Meaningful Use Info Meaningful Use Diagnoses (Choose all that apply): None applicable Code Visit Inpatient E&M: 40355 Disch Hosp
[2018-09-20 09:08] LABS: Cholesterol 138 mg/dL (200); High Density Lipoprotein 42 mg/dL; Magnesium 2.1 mg/dL (1.6-2.6); Triglycerides 104 mg/dL; Very Low Density Lipoprotein 21 mg/dL (5-40)
[2018-09-20 09:29] LABS: Hemoglobin A1c 6.6 % (4.2-6.3)
[2018-09-20] MEDS: Hydroxychloroquine 200 MG Tablet PO (09:39)
[2018-09-20] MEDS: Gabapentin 600 MG Tablet PO (09:39)
--- NOTE | 2018-09-20 12:28 | NURSING ---
Ambulated patient to RR and around room before returning to bed. Groin site remains soft, c/d/i. Patient wobbly on feet and easily fatigued.
[2018-09-20 12:35] LABS: Bedside Glucose 163 mg/dL (70-110)
--- NOTE | 2018-09-20 14:04 | CHAPLAIN ---
patient is soundly asleep; this tube lancer did not disturb; left a calling card
--- NOTE | 2018-09-21 14:12 | CASEMGMT ---
RN ANNETTE DC PHONE CALL DC DATE: 09/21/18 DC Disposition: Home LACE/STRATA: 02/03 Intro role of CM to patient via phone. Pt states she is feeling well, has prescriptions filled, and no questions re: f/u or instructions. No care improvement suggestions given. Pt states her care was and always is excellent @ [facility]. Jenn HAYESN RN AC
== END 2018-09-20 13:50 | disposition home or self-care (01) | DRG 287 ==
LOC: ED 19:02 → ICU 19:56
PROVIDERS: Hospitalist; Internal Medicine Cardiovascular Disease; Admitting Provider Family Medicine; Emergency Provider Emergency Medicine; Family Provider Internal Medicine; PCP Internal Medicine; Visit Provider Family Medicine
DX: I25.110 Atherosclerotic heart disease of native coronary artery with unstable angina pectoris (principal); I50.32 Chronic diastolic (congestive) heart failure; G40.909 Epilepsy, unspecified, not intractable, without status epilepticus; M06.9 Rheumatoid arthritis, unspecified; R35.0 Frequency of micturition; Z95.5 Presence of coronary angioplasty implant and graft; Z79.84 Long term (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 of oral hypoglycemic drugs; E11.9 Type 2 diabetes mellitus without complications; E78.5 Hyperlipidemia, unspecified; I11.0 Hypertensive heart disease with heart failure; E66.9 Obesity, unspecified; Z68.33 Body mass index [BMI] 33.0-33.9, adult
CPT/HCPCS: 71045; 80048; 80061; 82962; 83036; 83735; 84484; 85025; 85027; 85379; 85610; 85730; 93005; 93306; 93458; 97802; 99152; 99153; 99284; C1760; J7030; Q9957; A4216; C1769; Q9967

== ENCOUNTER 2018-12-11 18:22 | Emergency (ER) | payer MEDICARE, SELFPAY ==
[2018-03-22 11:02] VITALS: BMI 32.7
[2018-10-08 14:59] VITALS: BMI 32.0
[2018-12-11 18:23] VITALS: BP 96/61; PULSE 70; RESP 16; TEMP 36.3; O2SAT 98; BMI 32.9
--- NOTE | 2018-12-11 18:55 | EKG12_ITS ---
Test Reason : NAUSEA/VOMITING Blood Pressure : / mmHG Vent. Rate : 075 BPM Atrial Rate : 075 BPM P-R Int : 152 ms QRS Dur : 082 ms QT Int : 404 ms P-R-T Axes : 058 007 028 degrees QTc Int : 451 ms Normal sinus rhythm Normal ECG Confirmed by MILADY ZUNIGA, TRUDY ([id number]), slot editor NITISH CLARKE ([id number] on 12/13/2018 1:39:06 PM Referred By: DERRELL Confirmed By:TRUDY HENNING MD
--- NOTE | 2018-12-11 18:56 | ED.VISSUMM ---
- ER Visit Summary Date of Service: 12/11/18 Chief Complaint: Abdominal pain, nausea, vomiting, and diarrhea History of Present Illness: The patient is a 68 F who presents with abdominal pain, nausea, vomiting, and diarrhea that began today. Patient states this began suddenly today. Patient states she began to feel like her blood sugar was dropping. Patient states she sat down and was able to drink Pepsi. Patient states she vomited soon after this. Patient states she attempted to eat cherries as well but vomited some of this back up. Patient denies any hematemesis or coffee-ground emesis. Patient states her diarrhea is loose. Patient states she had several episodes of diarrhea today. Patient denies any melena or hematochezia. Patient states her pain is over the upper abdomen. Patient denies any radiation of the pain. Patient denies any dysuria or hematuria. Physical Examination: Vital signs are stable. Patient is afebrile. Patient is in no acute distress. Oral mucosa is pink and moist. Neck is supple. Trachea is midline. There is no JVD noted. Heart was regular rate and rhythm. Lungs are clear and equal bilaterally. Abdomen is soft. Bowel sounds are normal. There is tenderness over the upper abdomen. There is no rebound or guarding noted. Cranial nerves II through XII are intact. There are no focal motor or sensory deficits noted. Test Results: EKG showed a normal sinus rhythm with a rate of 75. There are no acute ST or T wave changes. CBC, comprehensive metabolic profile, troponin, and lipase were obtained and were all within normal limits. Emergency Department Course and Treatment: Patient was given IV fluids and Zofran here. Patient is feeling better on reevaluation. Patient was instructed to start with a bland diet and advance as tolerated. Patient was given a prescription for Zofran. Patient was instructed to follow-up with her primary care physician in 2 to 3 days as scheduled. Patient understood and was agreeable with the plan. All questions were answered. Disposition: Discharge home Impression: Nausea, vomiting, diarrhea This note was generated with [employer] dictation software. It may contain incorrect words, spelling, and punctuation that were not noted in review of the chart prior to signing ED Disposition - Plan for ED Patient: Disposition: Home or Assisted Living Diagnosis: Nausea, vomiting, and diarrhea Instructions: GASTROENTERITIS, Viral (8y-Adult) Prescriptions: Ondansetron [Zofran Odt] 4 mg PO Q8H PRN PRN #10 tab PRN Reason: Nausea Prescription Printed Referrals: Kannan Garcia MD [Primary Care Provider] - Keep Judah appointment
[2018-12-11] MEDS: 0.9% Normal Saline 1,000 ML 1000 ML IV (19:16)
[2018-12-11] MEDS: Ondansetron 4 MG/2 ML Vial IV (19:17)
[2018-12-11 19:38] LABS: Absolute Lymphocyte Count 1.56 X10^3/uL (0.83-4.51); Absolute Neutrophil Count 6.1 X10^3/uL (2.0-7.7); Basophil# 0.03 X10^3/uL; Basophil% 0.4 % (0-1); Eosinophil# 0.08 X10^3/uL; Hematocrit 38.4 % (37-47); Hemoglobin 12.7 g/dL (12.0-15.0); Lymphocyte # 1.56 X10^3/ul (4.0); Lymphocyte % 19.1 % (19-41); Mean Corp Hgb Conc 33.1 g/dL (32-36); Mean Corpuscular Hgb 31.8 pg (27.0-32.0); Mean Corpuscular Volume 96.2 fL (81-99); Mean Platelet Vol. 10.6 fl (6.2-12.0); Monocyte# 0.42 X10^3/uL; Monocyte% 5.1 % (0-10); NRBC Flagged by Analyzer 0 % (0-5); Neutrophil # 6.05 X10^3/uL (2.7-7.7); Neutrophil % 74.2 % (47-70); Platelet Count 198 K/mm3 (150-450); RBC Distribution Width SD 46.2 fl (35.1-43.9); Red Blood Count 3.99 M/mm3 (4.2-5.4); White Blood Count 8.2 K/mm3 (4.4-11.0)
[2018-12-11 19:52] LABS: ALB/GLOB Ratio 0.8 RATIO (0.9-2.4); AST(SGOT) 20 U/L (15-37); Alanine Aminotransfer ALT/SGPT 25 U/L (13-56); Albumin, Serum 3.6 g/dL (3.2-5.0); Alkaline Phosphatase 110 U/L (45-117); Anion Gap 6 (5-15); BUN 28 mg/dL (7-18); BUN/Creat Ratio 21.7 RATIO (10-20); Calcium,Total 8.8 mg/dL (8.5-10.1); Chloride 109 mmol/L (98-107); Creatinine, Serum 1.29 mg/dL (0.55-1.02); EST Glomerular Filtration Rate 44 mL/min (>60); Est Glom Filt Rate - Afr Amer 53 mL/min (>60); Estimated Creatinine Clearance 33.93 ml/min; Globulin 4.3 g/dL (2.2-4.2); Glucose 163 mg/dL (74-106); Lipase 75 U/L (73-393); Potassium 5.1 mmol/L (3.5-5.1); Protein, Total 7.9 g/dL (6.4-8.2); Sodium Level 139 mmol/L (136-145)
[2018-12-11 21:21] VITALS: BP 112/71; PULSE 75; RESP 16; O2SAT 100
--- NOTE | 2018-12-11 21:22 | ED.RN ---
REVIEWED D/C INSTRUCTIONS, FOLLOW UP CARE, PRESCRIPTION, AND S/S THAT WOULD WARRANT A RETURN TO THE ED WITH PT. PT VERBALIZED AN UNDERSTANDING AND DENIES FURTHER QUESTIONS FOR THIS RN. PT SKIN WARM/DRY, RESP EVEN AND UNLABORED, PT A&O X 3, NO DISTRESS NOTED. PT AMBULATED OUT OF ED, GAIT STEADY.
== END 2018-12-11 21:23 | disposition home or self-care (01) ==
PROVIDERS: Emergency Provider Emergency Medicine; Family Provider Internal Medicine; PCP Internal Medicine
DX: R11.2 Nausea with vomiting, unspecified (principal); R19.7 Diarrhea, unspecified; R10.9 Unspecified abdominal pain; R51 Headache; I25.10 Atherosclerotic heart disease of native coronary artery without angina pectoris; E11.9 Type 2 diabetes mellitus without complications; R56.9 Unspecified convulsions; Z79.84 Long term (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 of oral hypoglycemic drugs; Z79.02 Long term (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 of antithrombotics/antiplatelets; Z79.82 Long term (current) use of aspirin; Z79.899 Other long term (current) drug therapy
CPT/HCPCS: 80053; 83690; 84484; 85025; 93005; 96361; 96374; 99284; J7030; J2405

== ENCOUNTER 2018-12-24 23:34 | Emergency (ER) | payer MEDICARE, SELFPAY ==
[2018-03-22 11:02] VITALS: BMI 32.7
[2018-12-13 10:47] VITALS: BMI 32.9
[2018-12-24 23:35] VITALS: BP 189/82; PULSE 123; RESP 19; TEMP 36.7; O2SAT 98; BMI 34.6
--- NOTE | 2018-12-24 23:52 | ED.DCSUM_ITS ---
History of Present Illness Chief Complaint: Seizure Informant: Patient, Concreter Onset: Today Narrative: Patient presents via EMS after having a seizure. 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 She called 911 and when she went to open the door for paramedics reportedly had a seizure. Patient does report having a seizure history. She takes Depakote. She tells me she felt okay, but then admits that she was having some symptoms that she typically has before seizures. Past Medical History - Allergies and Home Meds Allergies/Adverse Reactions: Allergies prednisone Adverse Reaction (Verified 12/13/18 10:45) Nausea Primary Care Physician: Kannan Garcia MD [Primary Care Provider] - Prior records reviewed: Yes Past Medical History: - - Review Surgical History: hysterectomy, - Smoking Status: Never smoker - Family History Maternal Family History: Family History (Last Reviewed 12/13/18 @ 10:47 by Smiley hCavarria) Grandmother Alcoholism Cancer Arthritis Mother Alcoholism Diabetes blood clots Hypertension Grandfather Heart disease Sister Thyroid disorder Other Breast cancer Cervical cancer Colon cancer Family History: Reports: Diabetes - age 60 Paternal Family History: Family History (Last Reviewed 12/13/18 @ 10:47 by Smiley Chavarria) Grandmother Alcoholism Cancer Arthritis Mother Alcoholism Diabetes blood clots Hypertension Grandfather Heart disease Sister Thyroid disorder Other Breast cancer Cervical cancer Colon cancer Family History: Reports: Unknown Review of Systems General: Denies: Chills, Fever Eyes: Denies: Visual changes - bilaterally ENT: Denies: Bilateral ear pain Cardiovascular: Denies: Chest pain Respiratory: Denies: Dyspnea Gastrointestinal: Denies: Abdominal pain, Nausea, Vomiting Genitourinary: Denies: Dysuria Skin: Denies: Wounds Neurological: Reports: Weakness - Generalized weakness. Denies: Headache Hematologic: Denies: Easy bruising Allergy: Denies: Uticaria Physical Exam Vital Signs/Narrative: Vital Signs Temp Pulse Resp BP Pulse Ox 12/24/18 23:35 98.1 F 123 H 19 H 189/82 H 98 Inital Vital Signs reviewed: Yes General: Well nourished, Well developed Head: Normocephalic Eyes: Perrl, EOMI ENT: Moist mucous membranes - No tongue injury noted. Neck: Supple Cardiovascular: Regular rhythm, Tachycardia Respiratory: No distress, CTA bilaterally Abdomen: Soft, Nontender Extremities: Nontender Skin: Normal color Neurological: Alert, Oriented x3, Normal Strength, Normal Sensation Psychological: Normal affect Diagnostic/Tx/Re-eval Laboratory Results 12/25/18 12/25/18 12/25/18 00:40 00:40 00:40 WBC 6.4 RBC 3.91 L Hgb 12.1 Hct 36.7 L MCV 93.9 MCH 30.9 MCHC 33.0 RDW Std Deviation 45.5 H RDW Coeff of [place] 13.4 Plt Count 206 MPV 10.3 Immature Gran % (Auto) 0.300 Neut % (Auto) 63.4 Lymph % (Auto) 27.4 [place] % (Auto) 6.1 Eos % (Auto) 2.5 Baso % (Auto) 0.3 Absolute Neuts (auto) 4.1 Absolute Lymphs (auto) 1.75 Nucleated RBC % 0 Sodium 141 Potassium 3.8 Chloride 108 H Carbon Dioxide 28.0 Anion Gap 5 BUN 19 H Creatinine 0.94 Estim Creat Clear Calc 46.56 Est GFR (MDRD) Af Amer 76 Est GFR (MDRD) Non-Af 63 BUN/Creatinine Ratio 20.2 H Glucose 137 H Calcium 8.9 Valproic Acid < 3 L - Medical Decision Making 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 Patient had initially been ordered Ativan, but decides when to discharge her was told that she had not been given the medication yet. I advised him to hold it. I was able to review the EMS run sheet. They describe the patient answering the door, her eyes rolling back, and her starting to fall. They did not describe seizure- like activity. At this point I am unsure if she passed out or had a small seizure. There was no described postictal. She was not postictal here. I did discuss with her that her valproic acid is low on our blood work. She will contact her PCP on Thursday and be sure to take her medication all weekend. Her son will come pick her up. ED Disposition - Plan for ED Patient: Disposition: Home or Assisted Living Diagnosis: Syncopal episodes Instructions: SYNCOPE, Unk Cause Referrals: Kannan Garcia MD [Primary Care Provider] - As soon as possible
[2018-12-25] MEDS: 0.9% Normal Saline 1,000 ML 150 ML IV (00:34)
[2018-12-25 00:45] VITALS: BP 144/77; PULSE 100; RESP 17; O2SAT 96
[2018-12-25 00:48] LABS: Absolute Lymphocyte Count 1.75 X10^3/uL (0.83-4.51); Absolute Neutrophil Count 4.1 X10^3/uL (2.0-7.7); Basophil# 0.02 X10^3/uL; Basophil% 0.3 % (0-1); Eosinophil# 0.16 X10^3/uL; Eosinophils% 2.5 % (0-5); Hematocrit 36.7 % (37-47); Hemoglobin 12.1 g/dL (12.0-15.0); Lymphocyte # 1.75 X10^3/ul (4.0); Lymphocyte % 27.4 % (19-41); Mean Corpuscular Hgb 30.9 pg (27.0-32.0); Mean Corpuscular Volume 93.9 fL (81-99); Mean Platelet Vol. 10.3 fl (6.2-12.0); Monocyte# 0.39 X10^3/uL; Monocyte% 6.1 % (0-10); NRBC Flagged by Analyzer 0 % (0-5); Neutrophil # 4.05 X10^3/uL (2.7-7.7); Neutrophil % 63.4 % (47-70); Platelet Count 206 K/mm3 (150-450); RBC Distribution Width CV 13.4 % (11.6-14.6); RBC Distribution Width SD 45.5 fl (35.1-43.9); Red Blood Count 3.91 M/mm3 (4.2-5.4); White Blood Count 6.4 K/mm3 (4.4-11.0)
[2018-12-25 01:00] VITALS: BP 144/77; PULSE 97; RESP 17; O2SAT 98
[2018-12-25 01:02] LABS: Anion Gap 5 (5-15); BUN 19 mg/dL (7-18); BUN/Creat Ratio 20.2 RATIO (10-20); Calcium,Total 8.9 mg/dL (8.5-10.1); Chloride 108 mmol/L (98-107); Creatinine, Serum 0.94 mg/dL (0.55-1.02); EST Glomerular Filtration Rate 63 mL/min (>60); Est Glom Filt Rate - Afr Amer 76 mL/min (>60); Estimated Creatinine Clearance 46.56 ml/min; Glucose 137 mg/dL (74-106); Potassium 3.8 mmol/L (3.5-5.1); Sodium Level 141 mmol/L (136-145)
[2018-12-25 01:21] LABS: Valproic Acid (Depakene) Level < 3 ug/mL (50-100)
--- NOTE | 2018-12-25 01:35 | ED.RN ---
PER DR BULLARD NOT TO GIVE ATIVAN. RN WILL CONTINUE TO MONITOR PT.
[2018-12-25 01:36] VITALS: BP 155/74; PULSE 98; RESP 17; O2SAT 99
== END 2018-12-25 01:37 | disposition home or self-care (01) ==
PROVIDERS: Emergency Provider Emergency Medicine; Family Provider Internal Medicine; PCP Internal Medicine
DX: R55 Syncope and collapse (principal); G40.909 Epilepsy, unspecified, not intractable, without status epilepticus; Z79.899 Other long term (current) drug therapy; Z90.710 Acquired absence of both cervix and uterus
CPT/HCPCS: 80048; 80164; 85025; 96360; 99285; J7030; A4216

== ENCOUNTER 2019-01-06 13:30 | Outpatient (RCR) | payer MEDICARE, SELFPAY ==
[2018-03-22 11:02] VITALS: BMI 32.7
[2018-12-13 10:47] VITALS: BMI 32.9
[2018-12-27 13:38] VITALS: BMI 34.6
== END 2019-01-06 23:59 | disposition home or self-care (01) ==
LOC: DC 13:30
PROVIDERS: Family Provider Internal Medicine; PCP Internal Medicine; Visit Provider Internal Medicine
DX: E11.9 Type 2 diabetes mellitus without complications (principal); Z71.3 Dietary counseling and surveillance
CPT/HCPCS: 97803; G0109

== ENCOUNTER → 2019-03-25 08:35 | Outpatient (CLI) | payer MEDICARE, SELFPAY ==
[2018-03-22 11:02] VITALS: BMI 32.7
[2018-12-27 13:38] VITALS: BMI 34.6
[2019-03-25 12:38] LABS: Valproic Acid (Depakene) Level 17 ug/mL (50-100)
== END ==
PROVIDERS: Family Provider Internal Medicine; PCP Internal Medicine; Visit Provider Internal Medicine
DX: G40.909 Epilepsy, unspecified, not intractable, without status epilepticus (principal)
CPT/HCPCS: 36415; 80164

== ENCOUNTER 2019-05-27 08:30 | Emergency (ER) | payer MEDICARE, SELFPAY ==
[2018-03-22 11:02] VITALS: BMI 32.7
[2019-05-20 13:47] VITALS: BMI 35.1
[2019-05-27 08:30] VITALS: BP 129/78; BP 142/76; PULSE 72; PULSE 77; RESP 15; RESP 16; TEMP 36.6; O2SAT 100; BMI 34.2
--- NOTE | 2019-05-27 08:58 | EKG12_ITS ---
Test Reason : REPEAT Blood Pressure : / mmHG Vent. Rate : 075 BPM Atrial Rate : 075 BPM P-R Int : 152 ms QRS Dur : 082 ms QT Int : 400 ms P-R-T Axes : 054 005 010 degrees QTc Int : 446 ms Normal sinus rhythm Normal ECG Confirmed by KELLY GARRIDO MD ([id number]), film or videotape editor GUNJAN BERNAL ([id number]) on 05/30/2019 12:12:02 PM Referred By: JUAN MIGUEL Confirmed By:KELLY GARRIDO MD
--- NOTE | 2019-05-27 08:59 | CT_ITS ---
STUDY: CTA HEAD AND NECK WITH CONTRAST REASON FOR EXAM: Female, 68 years old. PETIT MAL SEIZURES X2 DAYS LEFT CHEST PAIN/NECK PAIN RADIATION DOSAGE (If Supplied By Facility): CTDIvol = ( 27.87 ) mGy, DLP = ( 1388.61 ) mGycm TECHNIQUE: CT angiography was performed with a multi-detector CT scanner. Data acquisition was obtained from the skull base through the vertex following intravenous administration of 100cc isovue 370. MIP images were reconstructed from the axial data set. Post-processing of the angiographic images was performed, with multiplanar reformation and 3D reconstruction. Individualized dose optimization techniques were used for this CT. COMPARISON: No relevant priors. FINDINGS: Normal bilateral petrous carotid arteries. There is calcified plaque formation of the right cavernous carotid artery, without a cross-sectional luminal stenosis. There is calcified plaque formation of the left cavernous carotid artery, without a cross-sectional luminal stenosis. Normal right A1 segments of the anterior cerebral artery. Normal left A1 segments of the anterior cerebral artery. Normal intact anterior communicating artery (ACOM). Normal bilateral A2 segments of the anterior cerebral arteries. Normal right M1 and M2 segments of the middle cerebral arteries, with a normal M1 bifurcation. Normal left M1 and M2 segments of the middle cerebral arteries, with a normal M1 bifurcation. There is a persistent origin of the right posterior cerebral artery with absence of the posterior communicating artery (PCOM). There is a persistent origin of the left posterior cerebral artery with absence of the posterior communicating artery (PCOM). Normal bilateral vertebral arteries. Normal basilar artery with a normal basilar bifurcation. The visualized bilateral superior cerebellar (SCA) arteries are normal. Normal bilateral P1, P2 and visualized P3 segments of the posterior cerebral arteries. There is no demonstrated aneurysm of the [place]. Calcifications in the basal ganglia bilaterally. This is a normal variant in the adult. Diffuse enlargement of both lobes of the thyroid with multiple hypodense nodules the largest is in the left lobe. This measures 1.5 cm x 1.3 cm. AORTIC ARCH: There is atherosclerotic calcific plaque formation of the aortic arch and great vessels arising from the aortic arch, without a hemodynamically significant stenosis. There is a normal origin of the brachiocephalic, left common carotid, and left subclavian arteries. RIGHT CAROTID ARTERIES: Normal right common carotid artery (CCA). Normal right common carotid bulb. There is mild atherosclerotic plaque formation of the origin of the right internal carotid artery with less than 50% cross sectional diameter stenosis. Normal visualized cervical portion of the right internal carotid artery. Normal origin of the right external carotid artery (ECA). LEFT CAROTID ARTERIES: Normal left common carotid artery (CCA). Normal left common carotid bulb. There is mild atherosclerotic plaque formation of the origin of the left internal carotid artery with less than 50% cross sectional diameter stenosis. Normal visualized cervical portion of the left internal carotid artery. Normal origin of the left external carotid artery (ECA). VERTEBRAL ARTERIES: Normal bilateral vertebral arteries. CT/CTA Head AND Neck W/ Contrast IMPRESSION: Less than 50% stenosis at the origin of both internal carotid arteries due to calcific plaques. Electronically Signed: Tor Artis, at 10:25 EST , Service support ,
--- NOTE | 2019-05-27 09:00 | ED.DCSUM_ITS ---
History of Present Illness Chief Complaint: Seizure Detail of Chief Complaint: Increased frequency seizures, chest pain Informant: Patient Narrative: Patient presents with increased frequency of pet[place] mall seizures for the past 2 days. She states they typically affect 1 side of her body at a time. She does state that rest in the past. She is on Depakote. Patient states that she has had these all her life and they are typically very well controlled. She is not sure why the frequency recently increased. This morning around 6 AM she developed left upper chest pressure. Those symptoms seem to be resolved at this time. She does have a history of coronary artery disease with prior stents. She had a stress test last July was unremarkable and a heart cath in September that showed her EF to be 65%. She had 50 to 60% disease. Stents were patent at that time. Patient also reports having sharp spasm of pains in the left posterior neck this morning. This occurred a couple different times but currently seems to be resolved. - Past Medical History (1) Seizures Status: Chronic (2) Coronary artery disease Status: Chronic (3) Type 2 diabetes mellitus Status: Chronic (4) History of coronary artery stent placement Status: Resolved Comment: PCI-YESENIA-Mid LAD w/ 3.0 X 38 mm Promus Synergy, YESENIA to Mid-Distal LAD ISR w/2.5 X 38 mm Promus Synergy and YESENIA to proximal RCA w/ 2.5 X 12 mm Promus Synergy 03/22/18 (5) Chronic diastolic CHF (congestive heart failure) Status: Chronic (6) Essential (primary) hypertension Status: Chronic (7) Hyperlipidemia Status: Chronic Past Medical History - Allergies and Home Meds Allergies/Adverse Reactions: Allergies prednisone Adverse Reaction (Verified 05/27/19 08:32) Nausea Primary Care Physician: Kannan Garcia MD [Primary Care Provider] - Prior records reviewed: Yes Surgical History: hysterectomy, - Lives: Alone Smoking Status: Never smoker - Family History Maternal Family History: Family History (Last Reviewed 05/20/19 @ 09:09 by Winston Johnson MD) Grandmother Alcoholism Cancer Arthritis Mother Alcoholism Diabetes blood clots Hypertension Grandfather Heart disease Sister Thyroid disorder Other Breast cancer Cervical cancer Colon cancer Family History: Reports: Diabetes - age 60 Paternal Family History: Family History (Last Reviewed 05/20/19 @ 09:09 by Winston Johnson MD) Grandmother Alcoholism Cancer Arthritis Mother Alcoholism Diabetes blood clots Hypertension Grandfather Heart disease Sister Thyroid disorder Other Breast cancer Cervical cancer Colon cancer Family History: Reports: Unknown Review of Systems General: Denies: Chills, Fever Eyes: Denies: Visual changes - bilaterally ENT: Denies: Bilateral ear pain Cardiovascular: Reports: Chest pain Respiratory: Denies: Dyspnea, Cough Gastrointestinal: Denies: Abdominal pain, Nausea, Vomiting Genitourinary: Denies: Dysuria Musculoskeletal: Reports: Neck pain Skin: Denies: Rash Neurological: Denies: Headache, Weakness, Parasthesia Allergy: Denies: Uticaria Physical Exam Vital Signs/Narrative: Vital Signs Temp Pulse Resp BP Pulse Ox 05/27/19 08:30 97.8 F 77 16 142/76 H 100 Inital Vital Signs reviewed: Yes General: Well nourished, Well developed Head: Normocephalic ENT: Moist mucous membranes Neck: Supple Cardiovascular: Regular rate, Regular rhythm Respiratory: No distress, CTA bilaterally, Chest tenderness - Mild left anterior chest wall tenderness. No crepitus. Abdomen: Soft, Nontender Back: Nontender Extremities: Nontender Skin: Normal color, No rash Neurological: Alert, Oriented x3, Normal Strength, Normal Sensation Psychological: Normal affect Diagnostic/Tx/Re-eval Impressions Head/Neck CTA 05/27/19 08:59 IMPRESSION: Less than 50% stenosis at the origin of both internal carotid arteries due to calcific plaques. Electronically Signed: Tor Artis, at 10:25 EST , Service support , Chest X-Ray 05/27/19 09:04 IMPRESSION: No acute abnormality is seen. Electronically Signed: Tor Artis, at 9:19 EST , Service support , 05/27/19 08:59 CTA Head AND Neck W/ Contrast [CT] Stat 05/27/19 09:04 Chest 1 View (Portable) [RAD] Stat Laboratory Results 05/27/19 05/27/19 05/27/19 08:50 08:50 09:05 WBC 5.4 RBC 3.65 L Hgb 11.2 L Hct 35.0 L MCV 95.9 MCH 30.7 MCHC 32.0 RDW Std Deviation 47.1 H RDW Coeff of [place] 13.2 Plt Count 200 MPV 10.5 Immature Gran % (Auto) 0.400 Neut % (Auto) 50.7 Lymph % (Auto) 39.8 [place] % (Auto) 6.5 Eos % (Auto) 2.2 Baso % (Auto) 0.4 Absolute Neuts (auto) 2.7 Absolute Lymphs (auto) 2.13 Nucleated RBC % 0 Sodium 142 Potassium 3.9 Chloride 106 Carbon Dioxide 31.0 Anion Gap 5 BUN 21 H Creatinine 1.02 Estim Creat Clear Calc 42.91 Est GFR (MDRD) Af Amer 70 Est GFR (MDRD) Non-Af 58 L BUN/Creatinine Ratio 20.6 H Glucose 111 H Calcium 8.8 Troponin I < 0.015 Valproic Acid Cancelled 05/27/19 09:50 WBC RBC Hgb Hct MCV MCH MCHC RDW Std Deviation RDW Coeff of [place] Plt Count MPV Immature Gran % (Auto) Neut % (Auto) Lymph % (Auto) [place] % (Auto) Eos % (Auto) Baso % (Auto) Absolute Neuts (auto) Absolute Lymphs (auto) Nucleated RBC % Sodium Potassium Chloride Carbon Dioxide Anion Gap BUN Creatinine Estim Creat Clear Calc Est GFR (MDRD) Af Amer Est GFR (MDRD) Non-Af BUN/Creatinine Ratio Glucose Calcium Troponin I Valproic Acid 63 - EKG Initial EKG Interpretation: Sinus Rhythm - Sinus at 77 with no acute ischemia. Follow-up EKG Interpretation: Sinus Rhythm - Sinus at 75 with no acute ischemia. Unchanged from previous. - Medical Decision Making Given aspirin on arrival. She is also given 0.5 mg of p.o. Ativan secondary to her reported increased frequency of seizures. Although patient had denied having chest pressure in my first evaluation, when I went back to reexamine her she stated her chest pressure had returned and she was rating it about an 8 out of 10. A repeat EKG at that time showed no changes. CTA of the head and neck are unremarkable. Her Depakote level is within therapeutic range. I spoke with the patient's systems project manager, Dr. Johnson. We reviewed her current complaints along with her prior stress test and cath. He states that as long as her repeat EKG was unchanged she did not need to stay for a repeat troponin. Patient is eager to go home. We will change her isosorbide from 30 mg to 60 mg. Patient is comfortable with this plan. ED Disposition - Plan for ED Patient: Disposition: Home or Assisted Living Diagnosis: Chest pain Instructions: SEIZURE, Recurrent [Adult], CHEST PAIN, Uncertain Cause Prescriptions: Isosorbide Mononitrate [Isosorbide Mononitrate ER] 60 mg PO DAILY #60 tab.er.24h Transmission Status: Pending to [facility] [place] [id number] Referrals: Winston Johnson MD [STAFF PHYSICIAN] - 3-5 Days if not improving Kannan Garcia MD [Primary Care Provider] - 1 Week
--- NOTE | 2019-05-27 09:04 | RAD_ITS ---
STUDY: X-RAY CHEST REASON FOR EXAM: Female, 68 years old. Seizure, chest pain TECHNIQUE: Single AP portable view of the chest. COMPARISON: Comparison is made with prior examination dated September 18, 2018. FINDINGS: EKG electrodes are seen. Elevation of the right hemidiaphragm. The lungs are clear. There is no demonstrated pleural abnormality. Normal size heart. Normal mediastinum and allie. Normal visualized pulmonary arteries. Normal visualized aortic arch and descending thoracic aorta. There are degenerative changes of the visualized thoracic spine. Normal visualized ribs, clavicles, and shoulders. There is no demonstrated abnormality of the visualized soft tissue structures of the upper abdomen. RAD/Chest 1 View (Portable) IMPRESSION: No acute abnormality is seen. Electronically Signed: Tor Artis, at 9:19 EST , Service support ,
[2019-05-27 09:11] VITALS: BP 126/72; PULSE 82; RESP 16; O2SAT 100
[2019-05-27] MEDS: 0.9% Normal Saline 1,000 ML 150 ML IV (09:11)
[2019-05-27] MEDS: LORazepam 0.5 MG Tablet PO (09:11)
[2019-05-27] MEDS: Aspirin 325 MG Tablet PO (09:11)
[2019-05-27 09:17] LABS: Absolute Lymphocyte Count 2.13 X10^3/uL (0.83-4.51); Absolute Neutrophil Count 2.7 X10^3/uL (2.0-7.7); Basophil# 0.02 X10^3/uL; Basophil% 0.4 % (0-1); Eosinophil# 0.12 X10^3/uL; Eosinophils% 2.2 % (0-5); Hemoglobin 11.2 g/dL (12.0-15.0); Lymphocyte # 2.13 X10^3/ul (4.0); Lymphocyte % 39.8 % (19-41); Mean Corpuscular Hgb 30.7 pg (27.0-32.0); Mean Corpuscular Volume 95.9 fL (81-99); Mean Platelet Vol. 10.5 fl (6.2-12.0); Monocyte# 0.35 X10^3/uL; Monocyte% 6.5 % (0-10); NRBC Flagged by Analyzer 0 % (0-5); Neutrophil # 2.71 X10^3/uL (2.7-7.7); Neutrophil % 50.7 % (47-70); Platelet Count 200 K/mm3 (150-450); RBC Distribution Width CV 13.2 % (11.6-14.6); RBC Distribution Width SD 47.1 fl (35.1-43.9); Red Blood Count 3.65 M/mm3 (4.2-5.4); White Blood Count 5.4 K/mm3 (4.4-11.0)
[2019-05-27 09:29] LABS: Anion Gap 5 (5-15); BUN 21 mg/dL (7-18); BUN/Creat Ratio 20.6 RATIO (10-20); Calcium,Total 8.8 mg/dL (8.5-10.1); Chloride 106 mmol/L (98-107); Creatinine, Serum 1.02 mg/dL (0.55-1.02); EST Glomerular Filtration Rate 58 mL/min (>60); Est Glom Filt Rate - Afr Amer 70 mL/min (>60); Estimated Creatinine Clearance 42.91 ml/min; Glucose 111 mg/dL (74-106); Potassium 3.9 mmol/L (3.5-5.1); Sodium Level 142 mmol/L (136-145)
--- NOTE | 2019-05-27 09:55 | EKG12_ITS ---
Test Reason : CP Blood Pressure : / mmHG Vent. Rate : 077 BPM Atrial Rate : 077 BPM P-R Int : 148 ms QRS Dur : 080 ms QT Int : 376 ms P-R-T Axes : 063 010 020 degrees QTc Int : 425 ms Normal sinus rhythm Normal ECG Confirmed by KELLY GARRIDO MD ([id number]), editor managing director GUNJAN BERNAL ([id number]) on 05/30/2019 12:12:29 PM Referred By: MARII Confirmed By:EKLLY GARRIDO MD
[2019-05-27 10:26] LABS: Valproic Acid (Depakene) Level 63 ug/mL (50-100)
[2019-05-27 10:28] VITALS: BP 123/78; PULSE 74; RESP 15; O2SAT 100
[2019-05-27] MEDS: Morphine 4 MG/ML Syringe IV (10:29)
[2019-05-27] MEDS: Ondansetron 4 MG/2 ML Vial IV (10:29)
== END 2019-05-27 10:54 | disposition home or self-care (01) ==
PROVIDERS: Emergency Provider Emergency Medicine; PCP Internal Medicine
DX: R07.9 Chest pain, unspecified (principal); G40.A09 Absence epileptic syndrome, not intractable, without status epilepticus; I11.0 Hypertensive heart disease with heart failure; I50.32 Chronic diastolic (congestive) heart failure; I25.10 Atherosclerotic heart disease of native coronary artery without angina pectoris; E11.9 Type 2 diabetes mellitus without complications; E78.5 Hyperlipidemia, unspecified; M54.2 Cervicalgia; Z95.5 Presence of coronary angioplasty implant and graft; Z90.710 Acquired absence of both cervix and uterus; Z79.84 Long term (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 of oral hypoglycemic drugs; Z79.02 Long term (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 of antithrombotics/antiplatelets; Z79.82 Long term (current) use of aspirin; Z79.899 Other long term (current) drug therapy
CPT/HCPCS: 70496; 70498; 71045; 80048; 80164; 84484; 85025; 93005; 96361; 96374; 96375; 99284; J7030; Q9967; A4216; J2405

== ENCOUNTER → 2019-05-31 08:15 | Outpatient (CLI) | payer MEDICARE, SELFPAY ==
[2018-03-22 11:02] VITALS: BMI 32.7
[2019-05-27 08:30] VITALS: BMI 34.2
[2019-05-31 12:09] LABS: Absolute Lymphocyte Count 2.58 X10^3/uL (0.83-4.51); Basophil# 0.01 X10^3/uL; Basophil% 0.2 % (0-1); Eosinophil# 0.11 X10^3/uL; Eosinophils% 1.8 % (0-5); Hematocrit 35.8 % (37-47); Hemoglobin 11.5 g/dL (12.0-15.0); Lymphocyte # 2.58 X10^3/ul (4.0); Lymphocyte % 42.2 % (19-41); Mean Corp Hgb Conc 32.1 g/dL (32-36); Mean Corpuscular Hgb 31.1 pg (27.0-32.0); Mean Corpuscular Volume 96.8 fL (81-99); Mean Platelet Vol. 11.4 fl (6.2-12.0); Monocyte# 0.41 X10^3/uL; Monocyte% 6.7 % (0-10); NRBC Flagged by Analyzer 0 % (0-5); Neutrophil # 2.98 X10^3/uL (2.7-7.7); Neutrophil % 48.8 % (47-70); Platelet Count 191 K/mm3 (150-450); RBC Distribution Width CV 13.2 % (11.6-14.6); RBC Distribution Width SD 47.7 fl (35.1-43.9); White Blood Count 6.1 K/mm3 (4.4-11.0)
[2019-05-31 12:24] LABS: Valproic Acid (Depakene) Level 70 ug/mL (50-100)
[2019-05-31 12:26] LABS: ALB/GLOB Ratio 0.9 RATIO (0.9-2.4); AST(SGOT) 13 U/L (15-37); Alanine Aminotransfer ALT/SGPT 24 U/L (13-56); Albumin, Serum 3.4 g/dL (3.2-5.0); Alkaline Phosphatase 96 U/L (45-117); Anion Gap 3 (5-15); BUN 22 mg/dL (7-18); BUN/Creat Ratio 22.4 RATIO (10-20); Calcium,Total 8.8 mg/dL (8.5-10.1); Chloride 107 mmol/L (98-107); Creatinine, Serum 0.98 mg/dL (0.55-1.02); EST Glomerular Filtration Rate 60 mL/min (>60); Est Glom Filt Rate - Afr Amer 73 mL/min (>60); Globulin 3.9 g/dL (2.2-4.2); Glucose 101 mg/dL (74-106); Potassium 4.3 mmol/L (3.5-5.1); Protein, Total 7.3 g/dL (6.4-8.2); Sodium Level 141 mmol/L (136-145)
[2019-05-31 12:32] LABS: Hemoglobin A1c 7.7 % (4.2-6.3)
[2019-05-31 12:40] LABS: Microalbumin,Random Urine 22.9 mg/L (NO RANGE EST.); Microalbumin:Creatinine Ratio 15.1 mg/g CRE (<30 mg/g CRE)
== END ==
PROVIDERS: PCP Internal Medicine; Referring Provider Internal Medicine; Visit Provider Internal Medicine
DX: E11.9 Type 2 diabetes mellitus without complications (principal); G40.909 Epilepsy, unspecified, not intractable, without status epilepticus; I10 Essential (primary) hypertension; E78.5 Hyperlipidemia, unspecified
CPT/HCPCS: 36415; 80053; 80164; 82043; 82570; 83036; 85025

== ENCOUNTER → 2019-06-02 07:52 | Outpatient (CLI) | payer MEDICARE, SELFPAY ==
[2018-03-22 11:02] VITALS: BMI 32.7
[2019-05-20 13:47] VITALS: BMI 35.1
[2019-05-27 08:30] VITALS: BMI 34.2
--- NOTE | 2019-06-02 07:52 | US_ITS ---
STUDY: THYROID ULTRASOUND REASON FOR EXAM: Female, 68 years old. Nodules TECHNIQUE: Ultrasound evaluation of the thyroid was performed with real-time and static reynoso-scale imaging. COMPARISON: None. FINDINGS: RIGHT LOBE: The right lobe of the thyroid gland is enlarged and measures 5.4 cm x 1.8 cm x 1.8 cm. There is a heterogeneous echotexture. Multiple small cystic nodules are seen throughout the right lobe. The largest measures 6 mm x 8 mm x 4 mm. LEFT LOBE: The left lobe of the thyroid gland is enlarged and measures 5 cm x 2.2 cm x 2.2 cm. There is a heterogeneous echotexture. Multiple small cystic structures are seen throughout the lobe. The largest measures 8 mm x 8 mm x 8 mm. ISTHMUS: The isthmus is enlarged and measures 8.0 mm. The regional lymph nodes are normal. 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 Electronically Signed: Tor Artis, at 10:12 EST , Service support ,
--- NOTE | 2019-06-02 07:52 | BI_ITS ---
MAMMOGRAPHY - BILATERAL SCREENING REASON FOR EXAM: Female, 68 years old. Routine annual screening examination. PERTINENT HISTORY: Non-contributory. TECHNIQUE: Digital bilateral breast paul (3D mammographic acquisition) in the CC and MLO projections. 2-D mediolateral oblique (MLO) and craniocaudad (CC) views of both breasts were obtained. CAD: Full Field Digital Mammography with Computer Added Detection was performed. COMPARISON: Comparison is made with prior outside examination of July 20, 2017. FINDINGS: Breast Composition: The breasts are almost entirely fatty. There are no dominant masses or suspicious calcifications. Stable small benign-appearing bilateral axillary lymph nodes. Stable calcified bilateral breast nodules. No other significant abnormalities are identified. There has been no significant change since the prior study. BI/SCREEN MAMM (CAD) W/PAUL BILAT IMPRESSION: Stable bilateral screening mammogram. Yearly follow-up mammogram recommended. (A) ASSESSMENT CATEGORY: BIRADS Category 2: Benign. A letter regarding these results will be sent to the patient by the facility within 30 days. Approximately 10% of breast cancers are not detected by mammography. A normal mammogram should not delay biopsy of a clinically suspicious abnormality. [id number] Electronically Signed: Tor Artis, at 9:37 EST , Service support ,
== END ==
PROVIDERS: PCP Internal Medicine; Referring Provider Internal Medicine; Visit Provider Internal Medicine
DX: Z12.31 Encounter for screening mammogram for malignant neoplasm of breast (principal); E04.1 Nontoxic single thyroid nodule
CPT/HCPCS: 76536; 77063; 77067

== ENCOUNTER 2019-08-03 08:36 | Emergency (ER) | payer MEDICARE, SELFPAY ==
[2018-03-22 11:02] VITALS: BMI 32.7
[2019-07-13 13:49] VITALS: BMI 34.2
[2019-08-03 08:37] VITALS: BP 161/80; PULSE 89; RESP 18; TEMP 36.8; O2SAT 100; BMI 35.4
--- NOTE | 2019-08-03 08:54 | EKG12_ITS ---
Test Reason : CP Blood Pressure : / mmHG Vent. Rate : 083 BPM Atrial Rate : 083 BPM P-R Int : 132 ms QRS Dur : 078 ms QT Int : 374 ms P-R-T Axes : 050 012 027 degrees QTc Int : 439 ms Normal sinus rhythm Normal ECG Confirmed by NORAH ZUNIGA, JAMILA ([id number]), script editor NITISH CLARKE ([id number]) on 08/09/2019 2:02:18 PM Referred By: SAM Confirmed By:DONALD ALMAZAN MD
--- NOTE | 2019-08-03 08:54 | RAD_ITS ---
STUDY: X-RAY CHEST REASON FOR EXAM: Female, 68 years old. CHEST PAIN TECHNIQUE: Single AP portable view of the chest. COMPARISON: Comparison is made with prior study dated May 27, 2019. FINDINGS: EKG electrodes are seen. Elevation of the right hemidiaphragm. The lungs are clear. There is no demonstrated pleural abnormality. Normal size heart. Normal mediastinum and allie. Normal visualized pulmonary arteries. Normal visualized aortic arch and descending thoracic aorta. Normal visualized thoracic spine. Normal visualized ribs, clavicles, and shoulders. There is no demonstrated abnormality of the visualized soft tissue structures of the upper abdomen. RAD/Chest 1 View (Portable) IMPRESSION: Normal x-ray examination of the chest. Electronically Signed: Tor Artis, at 9:37 EDT , Service support ,
--- NOTE | 2019-08-03 08:55 | ED.VIS.GEN ---
History of Present Illness Chief Complaint: Chest Pain Informant: Patient Narrative: Patient presents the emergency room for the evaluation of chest pain. Patient describes it as sharp left-sided going into her back and her left arm. Nothing seems to make it better or worse. It is been constant since around 2 AM. She has a history of hypertension, hyperlipidemia, obesity, coronary artery disease status post angioplasty and stenting in 2018. She underwent a cardiac catheterization in 2019 which did demonstrate a normal left main, left anterior descending with mild proximal disease, distal 60% stenosis left circumflex with ostial 50% stenosis and distal 50% stenosis in the posterior lateral branch with a 60% stenosis. Medical therapy was recommended at that time. She tells me that 2 days ago she developed a sore throat body aches and chills. That has gotten worse. She notes a very minimal cough. She did have some diarrhea a couple days ago which has resolved. Past Medical History - Allergies and Home Meds Allergies/Adverse Reactions: Allergies prednisone Adverse Reaction (Verified 08/03/19 08:42) Nausea Primary Care Physician: Kannan Garcia MD [Primary Care Provider] - Surgical History: hysterectomy, - Smoking Status: Never smoker - Family History Maternal Family History: Family History (Last Reviewed 05/20/19 @ 09:[address] Winston oJhnson MD) Grandmother Alcoholism Cancer Arthritis Mother Alcoholism Diabetes blood clots Hypertension Grandfather Heart disease Sister Thyroid disorder Other Breast cancer Cervical cancer Colon cancer Family History: Reports: Diabetes - age 60 Paternal Family History: Family History (Last Reviewed 05/20/19 @ 09:[address] Winston Johnson MD) Grandmother Alcoholism Cancer Arthritis Mother Alcoholism Diabetes blood clots Hypertension Grandfather Heart disease Sister Thyroid disorder Other Breast cancer Cervical cancer Colon cancer Family History: Reports: Unknown Review of Systems General: Reports: Chills, Malaise. Denies: Fever, Sweats Eyes: Denies: Visual changes - bilaterally, Diplopia ENT: Reports: Sore throat. Denies: Rhinorrhea Cardiovascular: Reports: Chest pain. Denies: Palpitations Respiratory: Reports: Cough. Denies: Dyspnea, Dyspnea on exertion Gastrointestinal: Reports: Diarrhea. Denies: Abdominal pain, Nausea, Vomiting, Melena, Hematochezia Genitourinary: Denies: Dysuria, Hematuria, Frequency Musculoskeletal: Denies: Back pain, Extremity Pain Skin: Denies: Rash, Wounds Neurological: Denies: Headache, Weakness, Numbness Physical Exam Vital Signs/Narrative: Vital Signs Temp Pulse Resp BP Pulse Ox 08/03/19 08:37 98.2 F 89 18 161/80 H 100 Inital Vital Signs reviewed: Yes General: Well nourished, Well developed, No Acute Distress Head: Normocephalic, Atraumatic Eyes: Perrl, EOMI ENT: Moist mucous membranes, No rhinorrhea Neck: Supple, Nontender Cardiovascular: Regular rate, Regular rhythm, No murmurs Respiratory: No distress, CTA bilaterally, Chest nontender Abdomen: Soft, Nontender, Nondistended, Normal bowel sounds Back: Nontender, Normal Inspection Extremities: Nontender, No edema Skin: Normal color, No rash Neurological: Alert, Oriented x3, Cranial nerves II-XII grossly intact, Normal Strength, Normal Sensation Psychological: Normal affect, Normal Mood Diagnostic/Tx/Re-eval - Rhythm Strip Rhythm Strip: Sinus Rhythm - EKG demonstrates a normal sinus rhythm at a rate of 83 without concerning features of ACS. No ectopy. - Medical Decision Making Troponin AMB stat were both negative. EKG was a normal sinus rhythm at 83. Otherwise labs and chest x-ray were negative. She received Toradol for her chest pain. I think this is most likely a viral illness. Do not see evidence of ACS. And given our status of being in a pandemic is reasonable to have the patient observe herself at home return if worsening. ED Disposition - Plan for ED Patient: Disposition: Home or Assisted Living Diagnosis: Viral syndrome, Chest pain Instructions: ED Viral Syndrome Referrals: Kannan Garcia MD [Primary Care Provider] - 3-5 Days if not improving
[2019-08-03 09:07] LABS: Absolute Lymphocyte Count 2.52 X10^3/uL (0.83-4.51); Basophil# 0.03 X10^3/uL; Basophil% 0.5 % (0-1); Eosinophil# 0.13 X10^3/uL; Eosinophils% 2.1 % (0-5); Hematocrit 33.2 % (37-47); Hemoglobin 11.1 g/dL (12.0-15.0); Lymphocyte # 2.52 X10^3/ul (4.0); Lymphocyte % 41.7 % (19-41); Mean Corp Hgb Conc 33.4 g/dL (32-36); Mean Corpuscular Hgb 32.5 pg (27.0-32.0); Mean Corpuscular Volume 97.1 fL (81-99); Monocyte# 0.39 X10^3/uL; Monocyte% 6.4 % (0-10); NRBC Flagged by Analyzer 0 % (0-5); Neutrophil # 2.95 X10^3/uL (2.7-7.7); Neutrophil % 48.8 % (47-70); Platelet Count 164 K/mm3 (150-450); RBC Distribution Width CV 13.4 % (11.6-14.6); Red Blood Count 3.42 M/mm3 (4.2-5.4); White Blood Count 6.1 K/mm3 (4.4-11.0)
[2019-08-03 09:15] LABS: D-Dimer Quantitative (DVT/PE) 0.47 FEU/ug/m (0.27-0.49)
[2019-08-03 09:22] LABS: Anion Gap 6 (5-15); BUN 21 mg/dL (7-18); BUN/Creat Ratio 21.8 RATIO (10-20); Calcium,Total 8.9 mg/dL (8.5-10.1); Chloride 105 mmol/L (98-107); Creatinine, Serum 0.96 mg/dL (0.55-1.02); EST Glomerular Filtration Rate 62 mL/min (>60); Est Glom Filt Rate - Afr Amer 75 mL/min (>60); Estimated Creatinine Clearance 45.59 ml/min; Glucose 117 mg/dL (74-106); Sodium Level 140 mmol/L (136-145)
[2019-08-03] MEDS: Ketorolac 15 MG/ML Vial IV (10:10)
[2019-08-03 10:20] VITALS: BP 145/76; PULSE 66; RESP 16; O2SAT 99
[2019-08-03 11:17] VITALS: BP 154/84; PULSE 71; O2SAT 100
[2019-08-03 12:16] VITALS: BP 145/77; PULSE 73; O2SAT 100
[2019-08-03 12:55] VITALS: BP 143/85; PULSE 73; RESP 16; O2SAT 95
== END 2019-08-03 12:55 | disposition home or self-care (01) ==
PROVIDERS: Emergency Provider Emergency Medicine; PCP Internal Medicine
DX: B34.9 Viral infection, unspecified (principal); R07.9 Chest pain, unspecified; I25.10 Atherosclerotic heart disease of native coronary artery without angina pectoris; I10 Essential (primary) hypertension; E78.5 Hyperlipidemia, unspecified; E66.9 Obesity, unspecified; Z79.02 Long term (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 of antithrombotics/antiplatelets; Z79.82 Long term (current) use of aspirin; Z79.899 Other long term (current) drug therapy; Z95.5 Presence of coronary angioplasty implant and graft; Z90.710 Acquired absence of both cervix and uterus
CPT/HCPCS: 71045; 80048; 84484; 85025; 85379; 93005; 96374; 99284; A4216

== ENCOUNTER → 2019-08-19 10:42 | Outpatient (CLI) | payer MEDICARE, SELFPAY ==
[2018-03-22 11:02] VITALS: BMI 32.7
[2019-08-15 14:54] VITALS: BMI 35.4
[2019-08-19 11:33] LABS: Absolute Lymphocyte Count 2.05 X10^3/uL (0.83-4.51); Absolute Neutrophil Count 3.3 X10^3/uL (2.0-7.7); Basophil# 0.03 X10^3/uL; Basophil% 0.5 % (0-1); Eosinophil# 0.09 X10^3/uL; Eosinophils% 1.5 % (0-5); Hematocrit 34.4 % (37-47); Hemoglobin 11.4 g/dL (12.0-15.0); Lymphocyte # 2.05 X10^3/ul (4.0); Lymphocyte % 34.7 % (19-41); Mean Corp Hgb Conc 33.1 g/dL (32-36); Mean Corpuscular Hgb 31.1 pg (27.0-32.0); Mean Corpuscular Volume 93.7 fL (81-99); Mean Platelet Vol. 11.2 fl (6.2-12.0); Monocyte# 0.45 X10^3/uL; Monocyte% 7.6 % (0-10); NRBC Flagged by Analyzer 0 % (0-5); Neutrophil # 3.27 X10^3/uL (2.7-7.7); Neutrophil % 55.4 % (47-70); Platelet Count 191 K/mm3 (150-450); RBC Distribution Width CV 13.2 % (11.6-14.6); RBC Distribution Width SD 45.8 fl (35.1-43.9); Red Blood Count 3.67 M/mm3 (4.2-5.4); White Blood Count 5.9 K/mm3 (4.4-11.0)
[2019-08-19 11:45] LABS: ALB/GLOB Ratio 0.9 RATIO (0.9-2.4); AST(SGOT) 15 U/L (15-37); Alanine Aminotransfer ALT/SGPT 21 U/L (13-56); Albumin, Serum 3.5 g/dL (3.2-5.0); Alkaline Phosphatase 97 U/L (45-117); Anion Gap 5 (5-15); BUN 22 mg/dL (7-18); BUN/Creat Ratio 22.8 RATIO (10-20); Calcium,Total 8.6 mg/dL (8.5-10.1); Chloride 108 mmol/L (98-107); Creatinine, Serum 0.97 mg/dL (0.55-1.02); EST Glomerular Filtration Rate 61 mL/min (>60); Est Glom Filt Rate - Afr Amer 74 mL/min (>60); Globulin 3.7 g/dL (2.2-4.2); Glucose 116 mg/dL (74-106); Protein, Total 7.2 g/dL (6.4-8.2); Sodium Level 143 mmol/L (136-145)
== END ==
PROVIDERS: PCP Internal Medicine; Referring Provider Internal Medicine; Visit Provider Internal Medicine
DX: R10.11 Right upper quadrant pain (principal)
CPT/HCPCS: 80053; 85025

== ENCOUNTER → 2019-08-23 07:38 | Outpatient (CLI) | payer MEDICARE, SELFPAY ==
[2018-03-22 11:02] VITALS: BMI 32.7
[2019-08-15 14:54] VITALS: BMI 35.4
--- NOTE | 2019-08-23 07:39 | US_ITS ---
STUDY: ABDOMINAL ULTRASOUND - RIGHT UPPER QUADRANT REASON FOR VISIT: Female, 68 years old RUQ PAIN TECHNIQUE: Ultrasound evaluation of the right upper quadrant was performed with real-time and static reynoso-scale imaging. TECHNICAL QUALITY: Adequate. COMPARISON: None. FINDINGS: Liver: The liver measures 15.1 cm. There is increased echogenicity consistent with fatty infiltration. The bile ducts are within normal limits. There is hepatic color flow. The direction of portal flow is hepatopetal. There is no demonstrated mass lesion. Gallbladder: Normal distended gallbladder. The gallbladder wall measures 2.0 mm. There is a negative sonographic Dailey''s sign. There is no pericholecystic fluid. There are no gallstones. Common Bile Duct (C.B.D.): The common bile duct measures 2.0 mm. Pancreas: Normal size of the head portion of the pancreas. The body and tail portions are obscured due to overlying bowel gas. There is normal echogenicity of the pancreas. There is no demonstrated pancreatic mass or cyst. Right Kidney: Normal size of the right kidney. The right kidney measures 12 cm x 3.8 cm x 6.9 cm. Normal renal cortex. The right cortex measures 1.5 cm. There is a 1.9 cm x 1.7 cm x 1.7 cm renal cyst. There is no right hydronephrosis. US/Abdomen Limited IMPRESSION: Fatty infiltration of the liver. Right renal cyst. Electronically Signed: Tor Artis, at 13:33 EDT , Service support ,
== END ==
PROVIDERS: PCP Internal Medicine; Referring Provider Internal Medicine; Visit Provider Internal Medicine
DX: R10.11 Right upper quadrant pain (principal)
CPT/HCPCS: 76705

== ENCOUNTER → 2019-10-03 | Outpatient (CLI) | payer MEDICARE, SELFPAY ==
[2018-03-22 11:02] VITALS: BMI 32.7
[2019-10-03 10:57] VITALS: BMI 35.4
[2019-10-03 13:00] LABS: Squamous Epithelial Cells - UA 0 SEEN /hpf (5-10); White Blood Cells 0 SEEN /hpf (0-5)
[2019-10-03 13:02] LABS: Color, Urine Yellow (Yellow); Glucose, Dipstick Normal (Normal); Ketone-Dipstick Negative (Negative); Leukocyte Esterase-Dipstick 25 /ul (Negative); Nitrite-Dipstick Negative (Negative); Occult Blood-Urine 10 /ul (Negative); Protein-Dipstick Negative (Negative); Urine Bilirubin Dipstick Negative (Negative); Urine Clarity Clear (Clear); Urine Urobilinogen Normal (Normal)
[2019-10-03 13:13] LABS: Bacteria RARE /hpf (None Seen); Mucous, Urine RARE /hpf (<or=2+); Red Blood Cells-Urine 0-5 SEEN /hpf (0-5)
== END | disposition home or self-care (01) ==
LOC: LABSPEC 12:56
PROVIDERS: PCP Internal Medicine; Visit Provider Internal Medicine
DX: R35.0 Frequency of micturition (principal); R10.9 Unspecified abdominal pain
CPT/HCPCS: 81001

== ENCOUNTER 2019-10-12 18:24 | Emergency (ER) | payer MEDICARE, SELFPAY ==
[2018-03-22 11:02] VITALS: BMI 32.7
[2019-10-03 10:57] VITALS: BMI 35.4
[2019-10-12 18:25] VITALS: BP 144/78; PULSE 101; RESP 18; TEMP 36.6; O2SAT 98; BMI 33.6
--- NOTE | 2019-10-12 18:28 | RAD_ITS ---
STUDY: X-RAY - RIGHT WRIST REASON FOR EXAM: Female, 68 years old. FALL TODAY, PAIN AND SWELLING THROUGH OUT HAND AND WRIST, PAIN RADIATING UP ARM TECHNIQUE: 3 view(s) of the wrist were obtained. COMPARISON: None. FINDINGS: Normal visualized distal radius and ulna. Normal radiocarpal articulation. Normal distal radioulnar articulation. Normal carpal bones. Normal carpal articulations. There is degenerative arthrosis of the carpometacarpal articulation of the thumb. Normal second through fifth carpometacarpal articulations. Normal visualized metacarpal bones. The soft tissue structures are unremarkable. RAD/Wrist min 3 Views IMPRESSION: No definite acute or significant abnormality seen. Electronically Signed: Luca Lemus MD at 18:51 EDT , Service support ,
--- NOTE | 2019-10-12 18:28 | RAD_ITS ---
STUDY: X-RAY - RIGHT HAND REASON FOR EXAM: Female, 68 years old. FALL TODAY, PAIN AND SWELLING THROUGH OUT HAND AND WRIST, PAIN RADIATING UP ARM TECHNIQUE: 3 view(s) of the hand. COMPARISON: None. FINDINGS: Normal radiocarpal articulation. Normal distal radioulnar joint. Normal visualized carpal bones. Normal carpal articulations Normal carpometacarpal articulation of the thumb. Normal second through fifth carpometacarpal joints. Normal metacarpi. Normal metacarpophalangeal joint of the thumb. Normal interphalangeal joint of the thumb. Normal proximal and distal phalanges of the thumb. Normal metacarpophalangeal joints of the second through fifth fingers. Normal proximal and distal interphalangeal joints of the second through fifth fingers. Normal phalanges of the second through fifth fingers. The soft tissue structures are unremarkable. RAD/Hand Min 3 Views IMPRESSION: Normal x-ray examination of the hand. Electronically Signed: Luca Lemus MD at 18:54 EDT , Service support ,
--- NOTE | 2019-10-12 19:05 | ED.VIS.GEN ---
History of Present Illness Chief Complaint: Fall Narrative: This patient is a 68-year-old female who presents with a right wrist and hand injury. She was walking home and began to feel lightheaded and fell onto an outstretched right wrist. She believes this was related to a hypoglycemic episode. She ate something and began to feel better afterwards. She is diabetic. She has a history of prior similar symptoms with hypoglycemia. There was no chest pain or shortness of breath. She does have a history of coronary disease. However she states that she is only here for wrist and hand and that otherwise her lightheaded episode would not of brought her in for evaluation given history of prior similar presentations with hypoglycemia and the fact that it improved after eating. She does complain of some numbness in her fingers. Her pain is worse with range of motion or palpation. She also scraped her right foot but states that she does not have significant pain there. Past Medical History - Allergies and Home Meds Allergies/Adverse Reactions: Allergies prednisone Adverse Reaction (Verified 10/03/19 10:54) Nausea Primary Care Physician: Kannan Garcia MD [Primary Care Provider] - Past Medical History: - - Diabetes, coronary artery disease Surgical History: hysterectomy, - Smoking Status: Never smoker - Family History Maternal Family History: Family History (Last Reviewed 05/20/19 @ 09:[address] Winston Johnson MD) Grandmother Alcoholism Cancer Arthritis Mother Alcoholism Diabetes blood clots Hypertension Grandfather Heart disease Sister Thyroid disorder Other Breast cancer Cervical cancer Colon cancer Family History: Reports: Diabetes - age 60 Paternal Family History: Family History (Last Reviewed 05/20/19 @ 09:[address] Winston Johnson MD) Grandmother Alcoholism Cancer Arthritis Mother Alcoholism Diabetes blood clots Hypertension Grandfather Heart disease Sister Thyroid disorder Other Breast cancer Cervical cancer Colon cancer Family History: Reports: Unknown Review of Systems All systems negative except as indicated General: Denies: Fever Eyes: Denies: Visual changes - bilaterally ENT: Denies: Bilateral ear pain Cardiovascular: Reports: - - Near syncope. Denies: Chest pain Respiratory: Denies: Dyspnea Gastrointestinal: Denies: Abdominal pain, Nausea, Vomiting Musculoskeletal: Denies: Myalgias, Arthralgias Skin: Denies: Rash Neurological: Denies: Headache Hematologic: Denies: Easy bruising Allergy: Denies: Uticaria Physical Exam Vital Signs/Narrative: Vital Signs Temp Pulse Resp BP Pulse Ox 10/12/19 18:25 98 F 101 H 18 144/78 H 98 Inital Vital Signs reviewed: Yes General: Well nourished Head: Normocephalic Eyes: EOMI ENT: Moist mucous membranes Neck: Supple Cardiovascular: Regular rate, Regular rhythm Respiratory: No distress, CTA bilaterally Abdomen: Soft Extremities: - - Patient does have diffuse tenderness of the right wrist and hand without focal bony tenderness she has not brisk capillary refill normal sensation to touch active full range of motion. Skin: Normal color Neurological: Alert Psychological: Normal affect Diagnostic/Tx/Re-eval Impressions Hand X-Ray 10/12/19 18:28 IMPRESSION: Normal x-ray examination of the hand. Electronically Signed: Luca Lemus MD at 18:54 EDT , Service support , Wrist X-Ray 10/12/19 18:28 IMPRESSION: No definite acute or significant abnormality seen. Electronically Signed: Luca Lemus MD at 18:51 EDT , Service support , 10/12/19 18:28 Wrist min 3 Views [RAD] Stat Xray Hand [Hand Min 3 Views] [RAD] Stat Laboratory Results 10/12/19 19:03 POC Glucose 123 H - Medical Decision Making X-rays of the right wrist and hand are negative. Patient was given a wrist splint. She was advised on supportive care including ice and elevation. She understands to return for any new worsening or recurrent symptoms. She was advised to follow-up as an outpatient. She was discharged. ED Disposition - Plan for ED Patient: Disposition: Home or Assisted Living Diagnosis: Dizziness, Right wrist sprain, Contusion of right hand Instructions: ED Sprain Wrist, ED HAND CONTUSION Referrals: Kannan Garcia MD [Primary Care Provider] -
[2019-10-12 19:06] LABS: Bedside Glucose 123 mg/dL (70-110)
--- NOTE | 2019-10-12 19:10 | EKG12_ITS ---
Test Reason : FALL Blood Pressure : / mmHG Vent. Rate : 094 BPM Atrial Rate : 094 BPM P-R Int : 134 ms QRS Dur : 082 ms QT Int : 356 ms P-R-T Axes : 058 012 028 degrees QTc Int : 445 ms Normal sinus rhythm Low voltage QRS Borderline ECG Confirmed by NORAH ZUNIGA, JAMILA ([id number]), editor map CLAUDIA HECTOR ([id number]) on 10/17/2019 1:55:27 PM Referred By: TAMIA Confirmed By:DONALD ALMAZAN MD
== END 2019-10-12 19:28 | disposition home or self-care (01) ==
PROVIDERS: Emergency Provider Emergency Medicine; PCP Internal Medicine
DX: R42 Dizziness and giddiness (principal); S63.501A Unspecified sprain of right wrist, initial encounter; S60.221A Contusion of right hand, initial encounter; W19.XXXA Unspecified fall, initial encounter; Y93.01 Activity, walking, marching and hiking; Y92.9 Unspecified place or not applicable; Y99.9 Unspecified external cause status; I25.10 Atherosclerotic heart disease of native coronary artery without angina pectoris; E11.9 Type 2 diabetes mellitus without complications; Z90.710 Acquired absence of both cervix and uterus
CPT/HCPCS: 73110; 73130; 82962; 93005; 99283

== ENCOUNTER → 2019-11-18 11:03 | Outpatient (CLI) | payer MEDICARE, SELFPAY ==
[2018-03-22 11:02] VITALS: BMI 32.7
[2019-11-18 09:32] VITALS: BMI 33.6
--- NOTE | 2019-11-18 11:04 | VDLE_ITS ---
Reason For Study: RLE PAIN RIGHT GSV is normal. CFV is compressible, spontaneous, phasic, competent and demonstrates normal augmentation. FV is compressible, spontaneous, phasic, competent and demonstrates normal augmentation. POP V is compressible, spontaneous, phasic, competent and demonstrates normal augmentation. T/P Trunk is compressible. PTV is compressible. RT PerV is compressible. Procedure Exam performed in department. The exam was diagnostic. A preliminary report was called and/or faxed to Dr. Garcia @ 11:20 am @ [phone]. Interpretation Summary Deep veins of the right lower extremity are patent and compressible segmentally. There is no evidence of right lower extremity deep vein thrombosis. Valvular competence appears intact within the proximal deep venous system on the right . The right great saphenous vein appears patent and compressible segmentally. Ordering Physician: Kannan Garcia Referring Physician: Kannan Garcia Performed By: Wendi Limon, RDCS, RVT
--- NOTE | 2019-11-18 11:27 | RAD_ITS ---
STUDY: X-RAY - RIGHT KNEE REASON FOR EXAM: Female, 68 years old. Right knee pain and swelling TECHNIQUE: 3 view(s) of the knee. COMPARISON: None. FINDINGS: There is demineralization of the visualized distal femur. There is demineralization of the tibia and fibula. Normal proximal tibiofibular articulation. There is moderate degenerative arthrosis of the medial femorotibial compartment with moderate joint space narrowing. There is moderate degenerative arthrosis of the lateral femorotibial compartment with moderate joint space narrowing. There is moderate degenerative arthrosis of the patellofemoral articulation. The soft tissue structures are unremarkable. RAD/Knee 3 Views IMPRESSION: Degenerative arthrosis. Electronically Signed: Loki Mcgee MD at 17:24 EDT , Service support ,
== END ==
PROVIDERS: PCP Internal Medicine; Referring Provider Internal Medicine; Visit Provider Internal Medicine
DX: M79.89 Other specified soft tissue disorders (principal); M25.561 Pain in right knee; M25.461 Effusion, right knee
CPT/HCPCS: 73562; 93971

== ENCOUNTER 2019-11-20 10:11 | Inpatient (IN) | payer MEDICARE, SELFPAY ==
[2018-03-22 11:02] VITALS: BMI 32.7
[2019-11-18 09:32] VITALS: BMI 33.6
[2019-11-20] VITALS (17 sets, daily range): BP systolic 135–182; BP diastolic 75–93; PULSE 78–107; RESP 14–20; TEMP 36.3–37.1; O2SAT 66–100; BMI 33.7; BMI 34.2
--- NOTE | 2019-11-20 10:33 | EKG12_ITS ---
Test Reason : Blood Pressure : / mmHG Vent. Rate : 088 BPM Atrial Rate : 088 BPM P-R Int : 144 ms QRS Dur : 082 ms QT Int : 358 ms P-R-T Axes : 057 007 026 degrees QTc Int : 433 ms Normal sinus rhythm Normal ECG Confirmed by RADHIKA ZUNIGA, KELLY ([id number]), restaurant line server CLAUDIA HECTOR ([id number]) on 11/23/2019 9:02:53 AM Referred By: KYMBERLY Confirmed By:KELLY GARRIDO MD
--- NOTE | 2019-11-20 11:01 | ED.DCSUM_ITS ---
- ER Visit Summary Date of Service: 11/20/19 Chief Complaint: [Abdominal pain] History of Present Illness: The patient is a 68 F [presents to the emergency department with complaint of abdominal pain that started yesterday. Patient's had some nausea and did vomit 1 time today. She describes the pain as her upper abdomen and as severe. Patient also states that she has had more bowel movements than she is accustomed to and had 2 yesterday and 1 today. The stools were not watery. There was some difference in the color of the stool which was more orange just a reddish but she states there was no blood in her stool. Patient denies any fevers. She denies urinary symptoms. She denies any chest pain or shortness of breath. The pain does seem to wrap around to her back. Patient has history of coronary artery disease, diabetes, hypertension, seizure disorder, and history of CHF. Patient's had prior hysterectomy as well as prior and cardiac stent placement.] Physical Examination: [HEENT-PERRLA, EOMI. Cranial nerves II through XII grossly intact. TMs clear. Mucous membranes moist. No adenopathy. Cardiovascular-regular rate and rhythm without murmur or ectopy Lungs-clear to auscultation, chest wall stable without crepitus or subcu emphysema Abdomen-normoactive bowel sounds, soft. Patient has tenderness diffusely over the upper abdomen and the right upper quadrant as well as epigastric region and left upper quadrant. She has guarding. There is no rebound or rigidity. Extremities-intact ?4, normal range of motion, normal pulses, atraumatic] Test Results: [EKG obtained on arrival showed a sinus rhythm with a ventricular rate of 88 bpm with no acute segment changes.] CBC with differential obtained was normal. Chemistries unremarkable. LFTs were normal. Lipase was 52. Troponin less than 0.015. CT scan of the abdomen pelvis with IV and p.o. contrast showed edema of the gastric antrum with a 1.5 cm foreign body penetrating the gastric antral wall. Patient also noted to have high-grade stenosis of the right renal artery. Emergency Department Course and Treatment: [IV line established on arrival. Patient was medicated with Dilaudid and Zofran. Case was discussed with general surgeon on-call who presented to the emergency department to evaluate patient. I was asked to provide procedural sedation for the patient while EGD was undertaken. Patient was given propofol a total of 140 mg IV. Patient did have some transient hypoxemia that responded to [id number] ventilation. Patient was noted on EGD to have a fishbone that was perforating the stomach antrum and was removed. Patient did receive Protonix in the department. Patient tolerated procedure well.] Treatment Plan: Admit [] Disposition: [Admit] Impression: [Abdominal pain Gastric foreign body-removed] This note was generated with [employer] dictation software. It may contain incorrect words, spelling, and punctuation that were not noted in review of the chart prior to signing ED Disposition - Plan for ED Patient: Referrals: Kannan Garcia MD [Primary Care Provider] -
[2019-11-20] MEDS: 0.9% Normal Saline 1,000 ML 125 ML IV (11:10)
[2019-11-20] MEDS: Ondansetron 4 MG/2 ML Vial IV (11:10)
[2019-11-20] MEDS: HYDROmorphone 1 MG/ML Syringe IV ×2 (11:10→13:50)
[2019-11-20 11:20] LABS: Absolute Lymphocyte Count 1.56 X10^3/uL (0.83-4.51); Absolute Neutrophil Count 3.6 X10^3/uL (2.0-7.7); Basophil# 0.02 X10^3/uL; Basophil% 0.4 % (0-1); Eosinophil# 0.11 X10^3/uL; Eosinophils% 1.9 % (0-5); Hematocrit 38.9 % (37-47); Hemoglobin 12.6 g/dL (12.0-15.0); Lymphocyte # 1.56 X10^3/ul (4.0); Lymphocyte % 27.4 % (19-41); Mean Corp Hgb Conc 32.4 g/dL (32-36); Mean Corpuscular Volume 95.8 fL (81-99); Mean Platelet Vol. 10.7 fl (6.2-12.0); Monocyte# 0.43 X10^3/uL; Monocyte% 7.6 % (0-10); NRBC Flagged by Analyzer 0 % (0-5); Neutrophil # 3.56 X10^3/uL (2.7-7.7); Neutrophil % 62.5 % (47-70); Platelet Count 222 K/mm3 (150-450); RBC Distribution Width CV 13.6 % (11.6-14.6); RBC Distribution Width SD 47.8 fl (35.1-43.9); Red Blood Count 4.06 M/mm3 (4.2-5.4); White Blood Count 5.7 K/mm3 (4.4-11.0)
[2019-11-20 11:50] LABS: Valproic Acid (Depakene) Level 98 ug/mL (50-100)
[2019-11-20 12:11] LABS: ALB/GLOB Ratio 0.9 RATIO (0.9-2.4); AST(SGOT) 14 U/L (15-37); Alanine Aminotransfer ALT/SGPT 22 U/L (13-56); Albumin, Serum 3.4 g/dL (3.2-5.0); Alkaline Phosphatase 83 U/L (45-117); Anion Gap 5 (5-15); BUN 16 mg/dL (7-18); BUN/Creat Ratio 19.2 RATIO (10-20); Calcium,Total 8.7 mg/dL (8.5-10.1); Chloride 110 mmol/L (98-107); Creatinine, Serum 0.83 mg/dL (0.55-1.02); EST Glomerular Filtration Rate 73 mL/min (>60); Est Glom Filt Rate - Afr Amer 88 mL/min (>60); Estimated Creatinine Clearance 52.73 ml/min; Globulin 3.9 g/dL (2.2-4.2); Glucose 99 mg/dL (74-106); Lipase 52 U/L (73-393); Potassium 4.2 mmol/L (3.5-5.1); Protein, Total 7.3 g/dL (6.4-8.2); Sodium Level 144 mmol/L (136-145)
[2019-11-20 12:15] LABS: Lactic Acid 1.1 mmol/L (0.4-1.9)
--- NOTE | 2019-11-20 12:16 | CT_ITS ---
We are attempting to reach an attending provider to discuss findings. An addendum with communication details will be sent when the communication is complete. STUDY: CT ABDOMEN AND PELVIS WITH CONTRAST REASON FOR EXAM: Female, 68 years old. Epigastric abdominal pain radiating to back with nausea vomiting and diarrhea. RADIATION DOSAGE (If Supplied By Facility): CTDIvol = ( 14.82 ) mGy, DLP = ( 872.91 ) mGycm TECHNIQUE: Transaxial images were obtained from the dome of the diaphragm to the symphysis pubis without oral contrast. 100 mL of IV Isovue-370 was administered. Sagittal and coronal images were reconstructed. Individualized dose optimization techniques were used for this CT. COMPARISON: CT abdomen and pelvis without contrast 02/26/2017. FINDINGS: Minimal scarring in the posterior lung bases are unchanged. No suspicious infiltrates in the lung bases. The visualized portions of the heart are within normal limits. Mild diffuse fatty infiltration of liver. Normal gallbladder and extrahepatic biliary system. Normal spleen. Normal pancreas. Normal bilateral adrenal glands. Right kidney: Small nonenhancing hypodense cyst in the lower renal pole. No stones or hydronephrosis. Left kidney: Tiny cyst in the upper renal pole. No stones or hydronephrosis. Abnormal intramural edema and/or thickening in the gastric antrum. There is a curvilinear radiopaque like foreign body rather than contrast enhancement that appears to penetrate the gastric antral wall. This is at least 1.5 cm long. This may be the source of the gastric antral wall edema. EGD will be very helpful for further evaluation. Normal small intestine. Normal colon. The appendix is visualized and appears normal. Normal abdominal aorta. Suspicious high-grade stenosis of the right renal artery origin due to calcified plaques and noncalcified plaques. Calcified plaques without significant stenosis of the left renal artery. Normal inferior vena cava. Normal retroperitoneum. Normal understated urinary bladder. Postsurgical absence of the uterus. Normal abdominal wall. Normal osseous structures. CT/Abdomen/Pelvis WITH Contrast IMPRESSION: 1. Abnormal intramural edema of the gastric antrum with suspicious 1.5 cm curvilinear radiopaque foreign body penetrating the gastric antral hightower. EGD will be very helpful for further evaluation. 2. Mild diffuse hepatic steatosis is a new finding. 3. Suspicious high-grade stenosis of the right renal artery origin due to calcified and noncalcified plaques. 4. Calcified plaques without significant stenosis of the left renal artery. 5. Right lower renal pole cyst and tiny left upper renal pole cyst. 6. No other additional findings or changes when compared to 02/26/2017. Electronically Signed: Cayden Matias MD at 13:40 EDT , Service support ,
[2019-11-20 12:22] LABS: Bacteria 0 SEEN /hpf (None Seen); Color, Urine Yellow (Yellow); Glucose, Dipstick Normal (Normal); Ketone-Dipstick 5 mg/dl (Negative); Leukocyte Esterase-Dipstick 25 /ul (Negative); Mucous, Urine 0 SEEN /hpf (<or=2+); Nitrite-Dipstick Negative (Negative); Occult Blood-Urine Negative /ul (Negative); Protein-Dipstick Negative (Negative); Red Blood Cells-Urine 0 SEEN /hpf (0-5); Squamous Epithelial Cells - UA 0 SEEN /hpf (5-10); Urine Bilirubin Dipstick Negative (Negative); Urine Clarity Clear (Clear); Urine Urobilinogen Normal (Normal)
[2019-11-20 12:26] LABS: White Blood Cells 0-5 SEEN /hpf (0-5)
--- NOTE | 2019-11-20 14:25 | CON.PCM_ITS ---
Reason for Consult Date of Consultation: 11/20/19 History of Present Illness: The patient is a 68 year old F presented to the ER due to epigastric pain started last night but continued to get worse this morning. Patient is unable to eat this morning due to the pain. Denies any vomiting did have nausea with the pain. Patient denies ever having similar pain to this. Patient CT abdomen pelvis which questions whether there is a foreign body in the antrum of the stomach with some edema to the wall. Patient has had some pork chops from the grill the previous week and they do use a bristle brush--had fish yesterday. Patient's white blood count is within normal limits. Patient states she only takes aspirin 81 mg daily did not take it this morning however med list does have Plavix on it. Patient past medical history for diabetes seizures high blood pressure, last seizure has been a while ago per the patient. Past Medical History Past Medical History (Chronic Problems): Chronic Problems (Last Updated 11/21/19 @ 11:[address] Cammie Radford MD) Seizures (Chronic) Coronary artery disease (Chronic) Type 2 diabetes mellitus (Chronic) Atherosclerotic heart disease of [place] coronary artery without angina pectoris (Chronic) History of coronary artery stent placement (Chronic 03/22/18) PCI-YESENIA-Mid LAD w/ 3.0 X 38 mm Promus Synergy, YESENIA to Mid-Distal LAD ISR w/2.5 X 38 mm Promus Synergy and YESENIA to proximal RCA w/ 2.5 X 12 mm Promus Synergy 03/22/18 Chronic diastolic CHF (congestive heart failure) (Chronic) Essential (primary) hypertension (Chronic) Hyperlipidemia (Chronic) Medical History: Medical History (Last Updated 11/22/19 @ 04:[address] Padmini Briggs MD) Seizures (Chronic) R56.9 Diabetes type 2, controlled (Chronic) E11.9 Atherosclerotic heart disease of [place] coronary artery without angina pectoris (Chronic) I25.10 Chronic diastolic CHF (congestive heart failure) (Chronic) I50.32 Essential (primary) hypertension (Chronic) I10 Hyperlipidemia (Chronic) E78.5 Diabetes mellitus type 2 in nonobese E11.9 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 Obesity E66.9 Obstructive sleep apnea G47.33 RIGHT FOOT HEEL SPUR Rheumatoid arthritis M06.9 Seasonal allergies J30.2 Seizure disorder G40.909 Type 2 diabetes mellitus E11.9 Urinary frequency R35.0 Hives L50.9 Conversion disorder F44.9 Allergies prednisone Adverse Reaction (Verified 11/20/19 10:13) Nausea Home Medications: Ambulatory Orders Medication Instructions Recorded Aspirin [Aspirin, Baby] 81 mg PO DAILY@0800 02/26/17 Cyclobenzaprine HCl 10 mg PO TID PRN PRN #30 tab 03/23/18 atorvastatin 80 mg tablet 80 mg PO QHS #90 tab 05/20/19 carvedilol 12.5 mg tablet 12.5 mg PO BID #180 tab 05/20/19 clopidogrel 75 mg tablet 75 mg PO DAILY #90 tab 05/20/19 isosorbide mononitrate 30 mg 30 mg PO DAILY #90 tab 05/20/19 tablet,extended release 24 hr losartan 50 mg tablet 50 mg PO BID #180 tab 05/20/19 multivitamin 1 tab PO DAILY 05/20/19 divalproex 250 mg tablet,extended 1,000 mg PO QHS #120 tab 10/21/19 release 24 hr disability placard #1 ea 10/31/19 Inilet super thin lancets See Rx Instructions .ROUTE 11/11/19 .MEDSUPPLY #200 ea gabapentin 300 mg capsule 600 mg PO QHS #180 cap 11/17/19 Hydroxychloroquine Sulfate 200 mg PO BIDCM 11/20/19 Pantoprazole Sodium 40 mg PO QAM 11/20/19 Sitagliptin Phosphate [Januvia] 100 mg PO DAILY 11/20/19 Surgical History: Surgical History (Last Updated 11/22/19 @ 04:[address] Padmini Briggs MD) History of left heart catheterization (Resolved) Onset Date: 09/20/18 Z98.890 History of coronary artery stent placement (Chronic) Onset Date: 03/22/18 Z95.5 PCI-YESENIA-Mid LAD w/ 3.0 X 38 mm Promus Synergy, YESENIA to Mid-Distal LAD ISR w/2.5 X 38 mm Promus Synergy and YESENIA to proximal RCA w/ 2.5 X 12 mm Promus Synergy 03/22/18 H/O: hysterectomy Z98.890, Z90.710 History of carpal tunnel surgery Z92.89 History of section Z98.891 Surgical History: hysterectomy, - Psychiatric History: No pertinent psych hx Smoking Status: Never smoker - *Family History Maternal Family History: Family History (Last Reviewed 11/18/19 @ 09:32 by Alison Alcala) Grandmother Alcoholism Cancer Arthritis Mother Alcoholism Diabetes blood clots Hypertension Grandfather Heart disease Sister Thyroid disorder Other Breast cancer Cervical cancer Colon cancer History Items: Diabetes - age 60 Paternal Family History: Family History (Last Reviewed 11/18/19 @ 09:32 by Alison Alcala) Grandmother Alcoholism Cancer Arthritis Mother Alcoholism Diabetes blood clots Hypertension Grandfather Heart disease Sister Thyroid disorder Other Breast cancer Cervical cancer Colon cancer History Items: Unknown Review of Systems Constitutional: Reports: Anorexia Patient Problems: Active and Suspected Problems (Last Updated 11/21/19 @ 11:[address] Cammie Radford MD) Foreign body in stomach (Acute) - Physical Exam Vitals/I&O's: Vital Signs Temp Pulse Resp BP Pulse Ox 97.8 F 78 16 151/75 H 97 11/20/19 13:01 11/20/19 13:01 11/20/19 14:08 11/20/19 13:01 11/20/19 13:01 Oxygen Delivery Method Room Air Weight: 184 lb 11.958 oz Body Mass Index (BMI) 33.7 Finger Stick Blood Glucose 123 General: Alert, Oriented x3, Cooperative, No apparent distress HEENT: Atraumatic Lungs: Normal air movement Cardiovascular: Regular rate Abdomen: Soft, Non-Distended, Tender - Right upper quadrant, epigastric, no peritoneal signs Extremities: No clubbing, No cyanosis, No edema Neurological: Cranial nerves II-XII grossly intact Laboratory Results 11/20/19 11:10: WBC 5.7, RBC 4.06 L, Hgb 12.6, Hct 38.9, MCV 95.8, MCH 31.0, MCHC 32.4, RDW Std Deviation 47.8 H, RDW Coeff of [place] 13.6, Plt Count 222, MPV 10.7, Immature Gran % (Auto) 0.200, Neut % (Auto) 62.5, Lymph % (Auto) 27.4, [place] % (Auto) 7.6, Eos % (Auto) 1.9, Baso % (Auto) 0.4, Absolute Neuts (auto) 3.6, Absolute Lymphs (auto) 1.56, Nucleated RBC % 0 11/20/19 11:10: Sodium Cancelled, Potassium Cancelled, Chloride Cancelled, Carbon Dioxide Cancelled, Anion Gap Cancelled, BUN Cancelled, Creatinine Cancelled, Estim Creat Clear Calc Cancelled, Est GFR (MDRD) Af Amer Cancelled, Est GFR (MDRD) Non-Af Cancelled, BUN/Creatinine Ratio Cancelled, Glucose Cancelled, Calcium Cancelled, Total Bilirubin Cancelled, AST Cancelled, ALT Cancelled, Alkaline Phosphatase Cancelled, Troponin I Cancelled, Total Protein Cancelled, Albumin Cancelled, Globulin Cancelled, Albumin/Globulin Ratio Cancelled, Lipase Cancelled 11/20/19 11:10: Lactic Acid Cancelled 11/20/19 11:10: Valproic Acid 98 11/20/19 11:45: Lactic Acid 1.1 11/20/19 11:45: Sodium 144, Potassium 4.2, Chloride 110 H, Carbon Dioxide 29.0, Anion Gap 5, BUN 16, Creatinine 0.83, Estim Creat Clear Calc 52.73, Est GFR (MDRD) Af Amer 88, Est GFR (MDRD) Non-Af 73, BUN/Creatinine Ratio 19.2, Glucose 99, Calcium 8.7, Total Bilirubin 0.40, AST 14 L, ALT 22, Alkaline Phosphatase 83, Troponin I < 0.015, Total Protein 7.3, Albumin 3.4, Globulin 3.9, Albumin/Globulin Ratio 0.9, Lipase 52 L 11/20/19 12:15: Urine Color Yellow, Urine Clarity Clear, Urine pH 7.0, Ur Speci fic [place] 1.010, Urine Protein Negative, Urine Glucose (UA) Normal, Urine Ketones 5 H, Urine Occult Blood Negative, Urine Nitrite Negative, Urine Bilirubin Negative, Urine Urobilinogen Normal, Ur Leukocyte Esterase 25 H, Urine RBC 0 SEEN, Urine WBC 0-5 SEEN, Ur Squamous Epith Cells 0 SEEN, Urine Bacteria 0 SEEN, Urine Mucus 0 SEEN Current Medications Sodium Chloride () 1,000 mls @ 125 mls/hr IV .Q8H KIT Last Admin: 11/20/19 11:10 Dose: 125 mls/hr Documented by: Assessment/Plan All Active Problems (Last Updated 11/21/19 @ 11:[address] Cammie Radford MD) Foreign body in stomach (Acute) 68-year-old female presents with epigastric pain CT abdomen pelvis with edema of the gastric antral wall questionable foreign body I have discussed the above with the patient. I have offered the patient EGD with possible removal of foreign body, possible biopsy for evaluation. I have explained the risks/benefits of the procedure and described the procedure. I have discussed the risks with the patient, including but not limited to: infection, bleeding, perforation of the GI tract requiring emergency surgery, inability to complete the procedure, injury to any internal organs, complications of anesthesia, etc. - the patient understands and agrees to proceed. I have answered all the patient's questions to the patient's satisfaction and the patient has no further questions. Padmini Briggs M.D. Pager: [phone] [facility] [address] [place] [address], [address] [place] [address] Office: [phone] Addendum: s/p EGD---Fish bone was removed from gastric antrum-partially penetrating antrum, pt did have some irritate from overtube in upper esophagus. Inpatient E&M: 90327 Init Hosp L1 Multi Select Codes - Visit Charges Visit Charges: 72315 Init Hosp L1
[2019-11-20] MEDS: Propofol 200 MG/20 ML Vial IV BOLUS (15:28)
--- NOTE | 2019-11-20 15:56 | PCM.HP.STD ---
Problem List (1) Foreign body in stomach Status: Acute (2) Seizures Status: Chronic (3) Coronary artery disease Status: Chronic (4) Type 2 diabetes mellitus Status: Chronic (5) Atherosclerotic heart disease of [place] coronary artery without angina pectoris Status: Chronic (6) History of coronary artery stent placement Status: Resolved Comment: PCI-YESENIA-Mid LAD w/ 3.0 X 38 mm Promus Synergy, YESENIA to Mid-Distal LAD ISR w/2.5 X 38 mm Promus Synergy and YESENIA to proximal RCA w/ 2.5 X 12 mm Promus Synergy 03/22/18 (7) Chronic diastolic CHF (congestive heart failure) Status: Chronic (8) Essential (primary) hypertension Status: Chronic (9) Hyperlipidemia Status: Chronic Qualifiers: Hyperlipidemia type: pure hypercholesterolemia Qualified Code(s): E78.00 - Pure hypercholesterolemia, unspecified; E78.0 - Pure hypercholesterolemia History of Present Illness Date of Admission: 11/20/19 Chief Complaint: Abdominal pain since yesterday The patient is a 68 year old F with multiple comorbidities as listed above came to ER with abdominal pain since yesterday night after she ate the dinner. The abdominal pain was mild to start with but got worse in the morning. Abdominal pain was mainly localized in the upper abdomen, stabbing like, 7 to 10/10 intensity along with nausea. She also had vomiting in the morning about 2 times. She had loose bowel movement 2 times yesterday and 1 today but nonbloody or watery. No fever. Denies dysuria or other new lower urinary tract symptoms. She had dinner yesterday with fish and pork chops. Her pain got worse in the morning when she went for protestant and therefore came to ER. In the ED, she had CT abdomen which showed intramural edema of gastric antrum with suspicious 1.5 cm curvilinear foreign body penetrating anterior gastric antrum wall. Subsequently, mahnaz Briggs was consulted and patient had EGD in the ED and 2 cm of fishbone was removed. Gastric wall was edematous and inflamed. Incidental finding of suspicious high-grade stenosis of right renal artery due to calcified plaque in CT abdomen Patient other comorbidities are coronary artery disease with stents, last one a couple years ago, seizure disorder, chronic diastolic heart failure currently stable. Patient had about 10 pounds weight gain last 2 months and mild leg edema. She gets more short of breath on exertion in the last 2 months. She also had mild chest pain/tightness probably secondary to abdominal pain yesterday night and today morning. Troponin is negative. EKG shows normal sinus rhythm at 88 bpm Last heart cath in September 2018 shows patent stent in mid LAD, diffuse disease up to 60% in distal LAD and circumflex about 50% stenosis and right PLV 60% stenosis. Echo in September 2018 reported as EF 65% with mild concentric LVH, stage I diastolic dysfunction. Structurally normal valves. Past Medical History Past Medical History (Chronic Problems): Chronic Problems (Last Reviewed 11/18/19 @ 09:32 by Alison Alcala) Seizures (Chronic) Coronary artery disease (Chronic) Type 2 diabetes mellitus (Chronic) Atherosclerotic heart disease of [place] coronary artery without angina pectoris (Chronic) Chronic diastolic CHF (congestive heart failure) (Chronic) Essential (primary) hypertension (Chronic) Hyperlipidemia (Chronic) Medical History: Medical History (Last Reviewed 11/18/19 @ 09:32 by Alison Alcala) Atherosclerotic heart disease of [place] coronary artery without angina pectoris (Chronic) I25.10 Chronic diastolic CHF (congestive heart failure) (Chronic) I50.32 Essential (primary) hypertension (Chronic) I10 Hyperlipidemia (Chronic) E78.5 Diabetes mellitus type 2 in nonobese E11.9 Diabetes type 2, controlled E11.9 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 Obesity E66.9 Obstructive sleep apnea G47.33 RIGHT FOOT HEEL SPUR Rheumatoid arthritis M06.9 Seasonal allergies J30.2 Seizure disorder G40.909 Seizures R56.9 Type 2 diabetes mellitus E11.9 Urinary frequency R35.0 Atherosclerosis of coronary artery of [place] heart with angina pectoris (Resolved) I25.119 YESENIA to mid LAD (3.0 X 38 Promus Synergy); YESENIA to mid-distal LAD ISR (2.5 X 38 Promus Synergy); and YESENIA to proximal RCA (2.5 X12 Promus Synergy) 03/22/18 Hives L50.9 Conversion disorder F44.9 Allergies prednisone Adverse Reaction (Verified 11/20/19 10:13) Nausea Home Medications: Ambulatory Orders Medication Instructions Recorded Aspirin [Aspirin, Baby] 81 mg PO DAILY@0800 02/26/17 Cyclobenzaprine HCl 10 mg PO TID PRN PRN #30 tab 03/23/18 atorvastatin 80 mg tablet 80 mg PO QHS #90 tab 05/20/19 carvedilol 12.5 mg tablet 12.5 mg PO BID #180 tab 05/20/19 clopidogrel 75 mg tablet 75 mg PO DAILY #90 tab 05/20/19 isosorbide mononitrate 30 mg 30 mg PO DAILY #90 tab 05/20/19 tablet,extended release 24 hr losartan 50 mg tablet 50 mg PO BID #180 tab 05/20/19 multivitamin 1 tab PO DAILY 05/20/19 Isosorbide Mononitrate [Isosorbide 60 mg PO DAILY #60 tab.er.24h 05/27/19 Mononitrate ER] pantoprazole 40 mg tablet,delayed 40 mg PO QAM #30 tab 08/26/19 release divalproex 250 mg tablet,extended 1,000 mg PO QHS #120 tab 10/21/19 release 24 hr disability placard #1 ea 10/31/19 Inilet super thin lancets See Rx Instructions .ROUTE 11/11/19 .MEDSUPPLY #200 ea gabapentin 300 mg capsule 600 mg PO QHS #180 cap 11/17/19 Hydroxychloroquine Sulfate 200 mg PO BIDCM PRN 11/20/19 Sitagliptin Phosphate [Januvia] 100 mg PO DAILY 11/20/19 Surgical History: Surgical History (Last Reviewed 11/18/19 @ 09:32 by Alison Alcala) History of coronary artery stent placement (Resolved) Onset Date: 03/22/18 Z95.5 PCI-YESENIA-Mid LAD w/ 3.0 X 38 mm Promus Synergy, YESENIA to Mid-Distal LAD ISR w/2.5 X 38 mm Promus Synergy and YESENIA to proximal RCA w/ 2.5 X 12 mm Promus Synergy 03/22/18 H/O: hysterectomy Z98.890, Z90.710 History of carpal tunnel surgery Z92.89 History of section Z98.891 History of left heart catheterization Onset Date: 09/20/18 Z98.890 Surgical History: hysterectomy, - Psychiatric History: No pertinent psych hx Smoking Status: Never smoker - *Family History Maternal Family History: Family History (Last Reviewed 11/18/19 @ 09:32 by Alison Alcala) Grandmother Alcoholism Cancer Arthritis Mother Alcoholism Diabetes blood clots Hypertension Grandfather Heart disease Sister Thyroid disorder Other Breast cancer Cervical cancer Colon cancer History Items: Diabetes - age 60 Paternal Family History: Family History (Last Reviewed 11/18/19 @ 09:32 by Alison Alcala) Grandmother Alcoholism Cancer Arthritis Mother Alcoholism Diabetes blood clots Hypertension Grandfather Heart disease Sister Thyroid disorder Other Breast cancer Cervical cancer Colon cancer History Items: Unknown Review of Systems Constitutional: Denies: Chills, Fever, Weight Change HEENT: Denies: Head Aches, Sinus Congestion, Sinus Drainage Cardiovascular: Reports: Chest Pain, Chest Tightness. Denies: Palpitations Respiratory: Reports: Shortness of Breath, Shortness of breath upon exertion. Denies: Cough, Shortness of breath at rest, Sputum production Gastrointestinal: Reports: Abdominal Pain, Diarrhea - Loose bowel movement, Nausea, Vomiting. Denies: Hematemesis, Hematochezia, Melena Genitourinary: Denies: Dysuria, Frequency, Hesitancy Musculoskeletal: Reports: Joint Pain - Knee pain chronic. Denies: Joint Tenderness Skin: Denies: Rash, Wounds Neurological: Denies: Numbness, Tingling, Focal weakness Psychiatric: Denies: Anxiety, Depression, Homicidal Ideations, Suicidal Ideations Hematologic/ Lymphatic: Denies: Easy Bruising, Easy Bleeding VTE Information - Inpt Only VTE Present on Admission: No VTE Mechan Device Prophylaxis: None VTE Pharm Prophylaxis ordered?: Yes Patient Problems: Active and Suspected Problems (Last Reviewed 11/18/19 @ 09:32 by Alison Alcala) Foreign body in stomach (Acute) - Physical Exam Vitals/I&O's: Vital Signs Temp Pulse Resp BP Pulse Ox 97.8 F 88 17 157/78 H 94 11/20/19 15:31 11/20/19 15:31 11/20/19 15:31 11/20/19 15:31 11/20/19 15:31 Oxygen Flow Rate (L/min) [4] 6 Oxygen Flow Rate (L/min) [2] 6 Oxygen Flow Rate (L/min) [1 ( 2 Initial Baseline)] Oxygen Flow Rate (L/min) 2 Oxygen Delivery Method [4] Nasal Cannula Oxygen Delivery Method [3] Ambu-Bag Oxygen Delivery Method [2] Nasal Cannula Oxygen Delivery Method [1 ( Nasal Cannula Initial Baseline)] Oxygen Delivery Method Room Air Weight: 184 lb 11.958 oz Body Mass Index (BMI) 33.7 Finger Stick Blood Glucose 123 Intake and Output for Last 24 Hours 11/18/19 11/19/19 11/20/19 23:59 23:59 23:59 Intake Total 35 / 35 Balance General: Alert, Oriented x3, Cooperative HEENT: Atraumatic, PERRLA, EOMI, Normocephalic Oral: No Gingival or Mucosal Lesions/ Ulcerations, Dry Mucosa Neck: Supple, No JVD, Negative Carotid Bruits Lungs: Clear to auscultation, Normal air movement, No rhonchi, No wheeze, No rales, Diminished Cardiovascular: Regular rate, Regular Rhythm, Normal S1, Normal S2, No murmurs Abdomen: Bowel Sounds Present, Soft, Non Tender, Non-Distended, Guarding, Tender - Tenderness present in upper abdomen along with voluntary guarding. No rigidity Extremities: Capillary Refill Less than 3 Seconds, Edema - 2+ ankle edema Skin: No rashes, No breakdown Musculoskeletal: No Tenderness to Palpation of Joints or Extremities, Arthritic Changes - In bilateral knees Neurological: Cranial nerves II-XII grossly intact, Deep Tendon Reflexes 2+/4 and Symmetrical, Neuro grossly intact Psych/Mental Status: Normal Affect, Appropriate Laboratory Results 11/20/19 11:10: WBC 5.7, RBC 4.06 L, Hgb 12.6, Hct 38.9, MCV 95.8, MCH 31.0, MCHC 32.4, RDW Std Deviation 47.8 H, RDW Coeff of [place] 13.6, Plt Count 222, MPV 10.7, Immature Gran % (Auto) 0.200, Neut % (Auto) 62.5, Lymph % (Auto) 27.4, [place] % (Auto) 7.6, Eos % (Auto) 1.9, Baso % (Auto) 0.4, Absolute Neuts (auto) 3.6, Absolute Lymphs (auto) 1.56, Nucleated RBC % 0 11/20/19 11:10: Sodium Cancelled, Potassium Cancelled, Chloride Cancelled, Carbon Dioxide Cancelled, Anion Gap Cancelled, BUN Cancelled, Creatinine Cancelled, Estim Creat Clear Calc Cancelled, Est GFR (MDRD) Af Amer Cancelled, Est GFR (MDRD) Non-Af Cancelled, BUN/Creatinine Ratio Cancelled, Glucose Cancelled, Calcium Cancelled, Total Bilirubin Cancelled, AST Cancelled, ALT Cancelled, Alkaline Phosphatase Cancelled, Troponin I Cancelled, Total Protein Cancelled, Albumin Cancelled, Globulin Cancelled, Albumin/Globulin Ratio Cancelled, Lipase Cancelled 11/20/19 11:10: Lactic Acid Cancelled 11/20/19 11:10: Valproic Acid 98 11/20/19 11:45: Lactic Acid 1.1 11/20/19 11:45: Sodium 144, Potassium 4.2, Chloride 110 H, Carbon Dioxide 29.0, Anion Gap 5, BUN 16, Creatinine 0.83, Estim Creat Clear Calc 52.73, Est GFR (MDRD) Af Amer 88, Est GFR (MDRD) Non-Af 73, BUN/Creatinine Ratio 19.2, Glucose 99, Calcium 8.7, Total Bilirubin 0.40, AST 14 L, ALT 22, Alkaline Phosphatase 83, Troponin I < 0.015, Total Protein 7.3, Albumin 3.4, Globulin 3.9, Albumin/Globulin Ratio 0.9, Lipase 52 L 11/20/19 12:15: Urine Color Yellow, Urine Clarity Clear, Urine pH 7.0, Ur Specific [place] 1.010, Urine Protein Negative, Urine Glucose (UA) Normal, Urine Ketones 5 H, Urine Occult Blood Negative, Urine Nitrite Negative, Urine Bilirubin Negative, Urine Urobilinogen Normal, Ur Leukocyte Esterase 25 H, Urine RBC 0 SEEN, Urine WBC 0-5 SEEN, Ur Squamous Epith Cells 0 SEEN, Urine Bacteria 0 SEEN, Urine Mucus 0 SEEN Current Medications Sodium Chloride () 1,000 mls @ 125 mls/hr IV .Q8H KIT Last Admin: 11/20/19 11:10 Dose: 125 mls/hr Documented by: Assessment/Plan All Active Problems (Last Reviewed 11/18/19 @ 09:32 by Alison Alcala) Foreign body in stomach (Acute) History of coronary artery stent placement (Resolved 03/22/18) Angina at rest (Resolved) Angina pectoris (Resolved) Atherosclerosis of coronary artery of [place] heart with angina pectoris (Resolved) Left shoulder pain (Resolved) The patient is a 68 year old F with multiple comorbidities as listed above came to ER with abdominal pain for 1 day after she had dinner along with nausea, vomiting and loose bowel movement. On CT scan and subsequently EGD was found to have foreign body about 2 cm which was removed in the ER. Patient other comorbidities are coronary artery disease with stents, last one a couple years ago, seizure disorder, chronic diastolic heart failure currently stable. Patient had about 10 pounds weight gain last 2 months and mild leg edema. She gets more short of breath on exertion in the last 2 months. She also had mild chest pain/tightness probably secondary to abdominal pain yesterday night and today morning. Troponin is negative. EKG shows normal sinus rhythm at 88 bpm 1. Abdominal pain due to fishbone/foreign body penetrating the anterior gastric wall: patient had EGD in the ED and 2 cm of fishbone was removed. Anterior gastric wall was edematous and inflamed. IV fluid Ringer lactate. N.p.o. except sips and chips and patient can take p.o. medications. Pain control. Clear liquids from tomorrow a.m. patient had IV Protonix 80 mg bolus in ER. Home dose of Protonix 40 mg daily continued. 2. Coronary heart disease status post 2 stents, chronic diastolic heart failure: Patient reported 10 pound weight gain last 2-month and mild leg edema. Currently patient is dehydrated IV fluid normal saline. She might need diuresis tomorrow if gets fluid overloaded/edematous. Home medications aspirin, Plavix, carvedilol, losartan and isosorbide mononitrate continued. First troponin negative and EKG normal sinus rhythm. Repeat 1 troponin after 4 hours. Last heart cath in September 2018 shows patent stent in mid LAD, diffuse disease up to 60% in distal LAD and circumflex about 50% stenosis and right PLV 60% stenosis. Echo in September 2018 reported as EF 65% with mild concentric LVH, stage I diastolic dysfunction. Structurally normal valves. Follows Dr. koch. 3. Diabetes mellitus type 2: Glucose is controlled, 99 and BMP. Accu-Chek essentials and cover with Hem-o-monica sliding scale. Patient can have Januvia at home tomorrow a.m. 4. Chronic seizure disorder: Did not had any recent seizure episode in last 3 years. On divalproex continued. 5. Other comorbidities include chronic degenerative joint disease, hypertension and dyslipidemia: Home medication reconciliation done. DVT prophylaxis: Lovenox 40 mg subcu daily. Living will/advanced directive/end of life care: Patient does have living will. Her power of passenger coach driver for health is her niece. She is not . After discussion of procedures involved with full code, DNR CC arrest and DNR CC, the patient opted for full code and wants to be resuscitated until she is terminal or brain Patient does want artificial life support including intubation, tube feed, ventilator and/chest compression, central venous catheter, vasopressor and DC shock if needed Full Code. Total time spent in [id number] encounter in discussion of advanced directive 16 minutes Laboratory Results 11/20/19 11:10: WBC 5.7, RBC 4.06 L, Hgb 12.6, Hct 38.9, MCV 95.8, MCH 31.0, MCHC 32.4, RDW Std Deviation 47.8 H, RDW Coeff of [place] 13.6, Plt Count 222, MPV 10.7, Immature Gran % (Auto) 0.200, Neut % (Auto) 62.5, Lymph % (Auto) 27.4, [place] % (Auto) 7.6, Eos % (Auto) 1.9, Baso % (Auto) 0.4, Absolute Neuts (auto) 3.6, Absolute Lymphs (auto) 1.56, Nucleated RBC % 0 11/20/19 11:10: Valproic Acid 98 11/20/19 11:45: Lactic Acid 1.1 11/20/19 11:45: Sodium 144, Potassium 4.2, Chloride 110 H, Carbon Dioxide 29.0, Anion Gap 5, BUN 16, Creatinine 0.83, Estim Creat Clear Calc 52.73, Est GFR (MDRD) Af Amer 88, Est GFR (MDRD) Non-Af 73, BUN/Creatinine Ratio 19.2, Glucose 99, Calcium 8.7, Total Bilirubin 0.40, AST 14 L, ALT 22, Alkaline Phosphatase 83, Troponin I < 0.015, Total Protein 7.3, Albumin 3.4, Globulin 3.9, Albumin/Globulin Ratio 0.9, Lipase 52 L 11/20/19 12:15: Urine Color Yellow, Urine Clarity Clear, Urine pH 7.0, Ur Specific [place] 1.010, Urine Protein Negative, Urine Glucose (UA) Normal, Urine Ketones 5 H, Urine Occult Blood Negative, Urine Nitrite Negative, Urine Bilirubin Negative, Urine Urobilinogen Normal, Ur Leukocyte Esterase 25 H, Urine RBC 0 SEEN, Urine WBC 0-5 SEEN, Ur Squamous Epith Cells 0 SEEN, Urine Bacteria 0 SEEN, Urine Mucus 0 SEEN Clinical Impression(s) from Imaging Studies Abdomen/Pelvis CT 11/20/19 12:16 IMPRESSION: 1. Abnormal intramural edema of the gastric antrum with suspicious 1.5 cm curvilinear radiopaque foreign body penetrating the gastric antral hightower. EGD will be very helpful for further evaluation. 2. Mild diffuse hepatic steatosis is a new finding. 3. Suspicious high-grade stenosis of the right renal artery origin due to calcified and noncalcified plaques. 4. Calcified plaques without significant stenosis of the left renal artery. 5. Right lower renal pole cyst and tiny left upper renal pole cyst. 6. No other additional findings or changes when compared to 02/26/2017. OBSV E&M: 11716 Initial observation care L3 Procedures: 07417 Advncd Care Plan 30 Min
[2019-11-20] MEDS: Lactated Ringers 1,000 ML 75 ML IV (17:13)
[2019-11-20] MEDS: Enoxaparin 40 MG/0.4 ML Syringe SC (18:06)
[2019-11-20 18:15] LABS: Bedside Glucose 101 mg/dL (70-110)
--- NOTE | 2019-11-20 20:24 | EKG12_ITS ---
Test Reason : CP Blood Pressure : / mmHG Vent. Rate : 107 BPM Atrial Rate : 107 BPM P-R Int : 142 ms QRS Dur : 080 ms QT Int : 350 ms P-R-T Axes : 054 010 026 degrees QTc Int : 467 ms Sinus tachycardia Otherwise normal ECG Confirmed by MILADY ZUNIGA, TRUDY ([id number]), editor in chief CLAUDIA HECTOR ([id number]) on 11/23/2019 8:55:02 AM Referred By: DR JENSEN Confirmed By:TRUDY HENNING MD
[2019-11-20] MEDS: Nitroglycerin (INPATIENT USE) 0.4 MG TAB.SUBL SUBLINGUAL (20:26)
[2019-11-20] MEDS: BENZOCAINE/MENTHOL 1 LOZENGE MUCOUS MEM ×2 (20:31→21:59)
[2019-11-20] MEDS: Losartan Potassium 50 MG Tablet PO (21:57)
[2019-11-20] MEDS: Divalproex (ER) 250 MG Tablet 1000 MG PO (21:57)
[2019-11-20] MEDS: Carvedilol 12.5 MG Tablet PO (21:58)
[2019-11-20] MEDS: Sucralfate 1 GM Tablet PO (21:58)
[2019-11-21] VITALS (11 sets, daily range): BP systolic 104–144; BP diastolic 60–78; PULSE 68–105; RESP 14–16; TEMP 36.8–37.3; O2SAT 95–98
[2019-11-21 00:06] LABS: Bedside Glucose 136 mg/dL (70-110)
[2019-11-21] MEDS: Morphine 2 MG/ML Syringe IV ×2 (04:13→10:07)
[2019-11-21] MEDS: BENZOCAINE/MENTHOL 1 LOZENGE MUCOUS MEM ×4 (04:14→20:06)
[2019-11-21 06:15] LABS: Absolute Lymphocyte Count 1.49 X10^3/uL (0.83-4.51); Absolute Neutrophil Count 9.5 X10^3/uL (2.0-7.7); Basophil# 0.01 X10^3/uL; Basophil% 0.1 % (0-1); Hematocrit 33.7 % (37-47); Hemoglobin 10.8 g/dL (12.0-15.0); Lymphocyte # 1.49 X10^3/ul (4.0); Lymphocyte % 12.8 % (19-41); Mean Corpuscular Hgb 31.3 pg (27.0-32.0); Mean Corpuscular Volume 97.7 fL (81-99); Mean Platelet Vol. 9.9 fl (6.2-12.0); Monocyte# 0.57 X10^3/uL; Monocyte% 4.9 % (0-10); NRBC Flagged by Analyzer 0 % (0-5); Neutrophil # 9.53 X10^3/uL (2.7-7.7); Neutrophil % 81.9 % (47-70); Platelet Count 188 K/mm3 (150-450); RBC Distribution Width CV 13.6 % (11.6-14.6); RBC Distribution Width SD 48.8 fl (35.1-43.9); Red Blood Count 3.45 M/mm3 (4.2-5.4); White Blood Count 11.6 K/mm3 (4.4-11.0)
[2019-11-21] MEDS: Sucralfate 1 GM Tablet PO ×4 (06:33→22:22)
[2019-11-21 06:39] LABS: Anion Gap 5 (5-15); BUN 14 mg/dL (7-18); Calcium,Total 8.1 mg/dL (8.5-10.1); Chloride 105 mmol/L (98-107); Creatinine, Serum 0.82 mg/dL (0.55-1.02); EST Glomerular Filtration Rate 74 mL/min (>60); Est Glom Filt Rate - Afr Amer 89 mL/min (>60); Estimated Creatinine Clearance 53.38 ml/min; Glucose 105 mg/dL (74-106); Sodium Level 136 mmol/L (136-145)
--- NOTE | 2019-11-21 06:48 | PN.SURG_ITS ---
Patient Problems: Active and Suspected Problems (Last Updated 11/21/19 @ 11:[address] Cammie Radford MD) Foreign body in stomach (Acute) Subjective: pt states abd feels better, still has sore throat - Physical Exam Vitals/I&O's: Vital Signs Temp Pulse Resp BP Pulse Ox 99.1 F 99 14 144/76 H 97 11/21/19 04:00 11/21/19 04:00 11/21/19 04:00 11/21/19 04:00 11/21/19 04:00 Oxygen Flow Rate (L/min) [4] 6 Oxygen Flow Rate (L/min) [2] 6 Oxygen Flow Rate (L/min) [1 ( 2 Initial Baseline)] Oxygen Flow Rate (L/min) 2 Oxygen Delivery Method [4] Nasal Cannula Oxygen Delivery Method [3] Ambu-Bag Oxygen Delivery Method [2] Nasal Cannula Oxygen Delivery Method [1 ( Nasal Cannula Initial Baseline)] Oxygen Delivery Method Room Air Weight: 187 lb 9.814 oz Body Mass Index (BMI) 34.2 Finger Stick Blood Glucose 123 Intake and Output for Last 24 Hours 11/19/19 11/20/19 11/21/19 23:59 23:59 23:59 Intake Total 1561.25 / 1561.25 636.25 / 636.25 Balance 1561.25 / 1561.25 636.25 / 636.25 General: Alert, Oriented x3, Cooperative, No apparent distress Cardiovascular: Regular rate Abdomen: Soft, Non-Distended, Tender - RUQ-mild, improved, no PS Laboratory Results 11/20/19 11:10: WBC 5.7, RBC 4.06 L, Hgb 12.6, Hct 38.9, MCV 95.8, MCH 31.0, MCHC 32.4, RDW Std Deviation 47.8 H, RDW Coeff of [place] 13.6, Plt Count 222, MPV 10.7, Immature Gran % (Auto) 0.200, Neut % (Auto) 62.5, Lymph % (Auto) 27.4, [place] % (Auto) 7.6, Eos % (Auto) 1.9, Baso % (Auto) 0.4, Absolute Neuts (auto) 3.6, Absolute Lymphs (auto) 1.56, Nucleated RBC % 0 11/20/19 11:10: Sodium Cancelled, Potassium Cancelled, Chloride Cancelled, Carbon Dioxide Cancelled, Anion Gap Cancelled, BUN Cancelled, Creatinine Cancelled, Estim Creat Clear Calc Cancelled, Est GFR (MDRD) Af Amer Cancelled, Est GFR (MDRD) Non-Af Cancelled, BUN/Creatinine Ratio Cancelled, Glucose Cancelled, Calcium Cancelled, Total Bilirubin Cancelled, AST Cancelled, ALT Cancelled, Alkaline Phosphatase Cancelled, Troponin I Cancelled, Total Protein Cancelled, Albumin Cancelled, Globulin Cancelled, Albumin/Globulin Ratio Cancelled, Lipase Cancelled 11/20/19 11:10: Lactic Acid Cancelled 11/20/19 11:10: Valproic Acid 98 11/20/19 11:45: Lactic Acid 1.1 11/20/19 11:45: Sodium 144, Potassium 4.2, Chloride 110 H, Carbon Dioxide 29.0, Anion Gap 5, BUN 16, Creatinine 0.83, Estim Creat Clear Calc 52.73, Est GFR (MDRD) Af Amer 88, Est GFR (MDRD) Non-Af 73, BUN/Creatinine Ratio 19.2, Glucose 99, Calcium 8.7, Total Bilirubin 0.40, AST 14 L, ALT 22, Alkaline Phosphatase 83, Troponin I < 0.015, Total Protein 7.3, Albumin 3.4, Globulin 3.9, Albumin/Globulin Ratio 0.9, Lipase 52 L 11/20/19 12:15: Urine Color Yellow, Urine Clarity Clear, Urine pH 7.0, Ur Specific [place] 1.010, Urine Protein Negative, Urine Glucose (UA) Normal, Urine Ketones 5 H, Urine Occult Blood Negative, Urine Nitrite Negative, Urine Bilirubin Negative, Urine Urobilinogen Normal, Ur Leukocyte Esterase 25 H, Urine RBC 0 SEEN, Urine WBC 0-5 SEEN, Ur Squamous Epith Cells 0 SEEN, Urine Bacteria 0 SEEN, Urine Mucus 0 SEEN 11/20/19 17:15: Troponin I < 0.015 11/20/19 18:01: POC Glucose 101 11/21/19 00:00: POC Glucose 136 H 11/21/19 06:08: WBC 11.6 H, RBC 3.45 L, Hgb 10.8 L, Hct 33.7 L, MCV 97.7, MCH 31.3, MCHC 32.0, RDW Std Deviation 48.8 H, RDW Coeff of [place] 13.6, Plt Count 188, MPV 9.9, Immature Gran % (Auto) 0.300, Neut % (Auto) 81.9 H, Lymph % (Auto) 12.8 L, [place] % (Auto) 4.9, Eos % (Auto) 0.0, Baso % (Auto) 0.1, Absolute Neuts (auto) 9.5 H, Absolute Lymphs (auto) 1.49, Nucleated RBC % 0 11/21/19 06:08: Sodium 136, Potassium 4.0, Chloride 105, Carbon Dioxide 26.0, Anion Gap 5, BUN 14, Creatinine 0.82, Estim Creat Clear Calc 53.38, Est GFR (MDRD) Af Amer 89, Est GFR (MDRD) Non-Af 74, BUN/Creatinine Ratio 17.0, Glucose 105, Calcium 8.1 L Current Medications Acetaminophen (Tylenol) 650 mg PO Q6H PRN PRN PRN Reason: Pain Score 1-10/Temp > 100.7 F Albuterol Sulfate (Ventolin Aerosols) 2.5 mg INHALATION Q2H PRN PRN PRN Reason: SOB/Wheezing Aspirin (Aspirin, Baby) 81 mg PO DAILY@0800 [facility] Atorvastatin Calcium (Lipitor) 80 mg PO QHS [facility] Last Admin: 11/20/19 21:58 Dose: Not Given Documented by: Carvedilol (Coreg) 12.5 mg PO BID [facility] Last Admin: 11/20/19 21:58 Dose: 12.5 mg Documented by: Clopidogrel Bisulfate (Plavix) 75 mg PO DAILY [facility] Cyclobenzaprine HCl (Flexeril) 10 mg PO TID PRN PRN PRN Reason: muscle spasm Dextrose (D50w Syringe) 0 gm IV X1 PRN; Protocol PRN Reason: Hypoglycemia Divalproex Sodium (Depakote Er) 1,000 mg PO QHS [facility] Last Admin: 11/20/19 21:57 Dose: 1,000 mg Documented by: Enoxaparin Sodium (Lovenox) 40 mg SC DAILY [facility] Last Admin: 11/20/19 18:06 Dose: 40 mg Documented by: Gabapentin (Neurontin) 600 mg PO QHS [facility] Last Admin: 11/20/19 21:58 Dose: Not Given Documented by: Glucagon () 1 mg IM .X1 PRN PRN Reason: Hypoglycemia Pantoprazole Sodium 40 mg/ (Sodium Chloride) 110 mls @ 330 mls/hr IV Q12 [facility] Last Infusion: 11/20/19 22:19 Dose: Infused Documented by: Insulin Human Lispro (Humalog Kwikpen (Bkc)) 0 unit SC Q6 [facility]; Protocol Last Admin: 11/21/19 06:34 Dose: Not Given Documented by: Isosorbide Mononitrate (Imdur) 30 mg PO DAILY [facility] Linagliptin (Tradjenta) 5 mg PO DAILY [facility] Losartan Potassium (Cozaar) 50 mg PO BID [facility] Last Admin: 11/20/19 21:57 Dose: 50 mg Documented by: Morphine Sulfate () 2 mg IV Q3H PRN PRN PRN Reason: Pain Score 6-10/10 Last Admin: 11/21/19 04:13 Dose: 2 mg Documented by: Nitroglycerin (Nitrostat) 0.4 mg SUBLINGUAL Q5M PRN PRN Reason: CARDIAC/CHEST PAIN Last Admin: 11/20/19 20:26 Dose: 0.4 mg Documented by: Oxycodone HCl (Oxyir) 5 mg PO Q4H PRN PRN PRN Reason: Pain Score 4-5/10 Promethazine HCl (Phenergan) 12.5 mg IV Q4H PRN PRN PRN Reason: NAUSEA/VOMITING Senna/Docusate Sodium (Senokot-S, Shanice-Colace) 2 tablet PO BID PRN PRN PRN Reason: Constipation Sodium Chloride () 10 - 40 ml IV UD PRN PRN Reason: SALINE FLUSH Sucralfate (Carafate) 1 gm PO 1HR_ACHS [facility] Last Admin: 11/21/19 06:33 Dose: 1 gm Documented by: Throat Lozenges (Cepacol Sore Throat Lozenge) 1 - 2 lozenge MUCOUS MEM Q2H PRN PRN PRN Reason: SORE THROAT Last Admin: 11/21/19 04:14 Dose: 1 lozenge Documented by: Medical Necessity - Tobacco Use Smoking Status: Never smoker Tobacco Use: Non-smoker Assessment/Plan All Active Problems (Last Updated 11/21/19 @ 11:[address] Cammie Radford MD) Foreign body in stomach (Acute) 68-year-old female presents with epigastric pain CT abdomen pelvis with edema of the gastric antral wall status post EGD removal of fishbone Okay for clears likely go home with full liquid/soft foods Addendum: 17:00--pt did have increase abd pain with broth-early today; however water/milk/oatmeal didn't cause increased abd pain, will continue on fulls. possible d/c tomorrow. Padmini Briggs M.D. Pager: [phone] [facility] [address] [place] [address], Outpatient [place], [address] [place] [address] Office: [phone] Inpatient E&M: 79211 Subs Hosp L1
[2019-11-21 06:51] LABS: Bedside Glucose 105 mg/dL (70-110)
[2019-11-21] MEDS: 0.9% Saline Lock 10 ML Syringe IV ×2 (10:08→22:26)
[2019-11-21] MEDS: Aspirin 81 MG TAB.CHEW PO (11:05)
[2019-11-21] MEDS: Enoxaparin 40 MG/0.4 ML Syringe SC (11:05)
[2019-11-21] MEDS: Clopidogrel Bisulfate 75 MG Tablet PO (11:05)
[2019-11-21] MEDS: Losartan Potassium 50 MG Tablet PO ×2 (11:05→22:22)
[2019-11-21] MEDS: Carvedilol 12.5 MG Tablet PO ×2 (11:05→22:22)
[2019-11-21] MEDS: LINAGLIPTIN 5 MG TABLET PO (11:05)
[2019-11-21] MEDS: Isosorbide Mononitrate 30 MG Tablet PO (11:05)
[2019-11-21 11:15] LABS: Bedside Glucose 76 mg/dL (70-110)
--- NOTE | 2019-11-21 11:32 | PCM.PROGNOTE ---
Patient Problems: Active and Suspected Problems (Last Reviewed 11/18/19 @ 09:32 by Alison Alcala) Foreign body in stomach (Acute) Subjective: Chief complaint: Follow-up after admission for foreign body stomach status post removal. Patient seen and examined. No acute events overnight. This morning, she felt better, abdominal pain is improving. Denied nausea or vomiting. Nursing staff reported that patient has been having increasing abdominal pain after she was started on clear liquids. Her vital signs are stable. - Physical Exam Vitals/I&O's: Vital Signs Temp Pulse Resp BP Pulse Ox 99.1 F 68 16 128/65 H 95 11/21/19 08:06 11/21/19 08:06 11/21/19 08:06 11/21/19 08:06 11/21/19 08:06 Oxygen Flow Rate (L/min) [4] 6 Oxygen Flow Rate (L/min) [2] 6 Oxygen Flow Rate (L/min) [1 ( 2 Initial Baseline)] Oxygen Flow Rate (L/min) 2 Oxygen Delivery Method [4] Nasal Cannula Oxygen Delivery Method [3] Ambu-Bag Oxygen Delivery Method [2] Nasal Cannula Oxygen Delivery Method [1 ( Nasal Cannula Initial Baseline)] Oxygen Delivery Method Room Air Weight: 187 lb 9.814 oz Body Mass Index (BMI) 34.2 Finger Stick Blood Glucose 123 Intake and Output for Last 24 Hours 11/19/19 11/20/19 11/21/19 23:59 23:59 23:59 Intake Total 1561.25 / 1561.25 821.25 / 821.25 Balance 1561.25 / 1561.25 821.25 / 821.25 General: Alert, Oriented x3, Cooperative, No apparent distress HEENT: Atraumatic, PERRLA, EOMI, Normocephalic Oral: Moist Mucosa, No Gingival or Mucosal Lesions/ Ulcerations Neck: Supple, No JVD, Negative Carotid Bruits, Trachea Midline, Thyroid Normal Size and Texture Lungs: Clear to auscultation, Normal air movement, No rhonchi, No wheeze, No rales Cardiovascular: Regular rate, Regular Rhythm, Normal S1, Normal S2, PMI Normal Abdomen: Bowel Sounds Present, Soft, Non Tender, Non-Distended, No Hepato-splenomegaly Extremities: No clubbing, No cyanosis, No edema Skin: No rashes, No breakdown Lymphatic: No Cervical, Supraclavicular, or Inguinal Adenopathy Neurological: Cranial nerves II-XII grossly intact, Neuro grossly intact Psych/Mental Status: Normal Affect, Appropriate, Alert and oriented to time, place, person, mood and affect Laboratory Results 11/20/19 11:10: Sodium Cancelled, Potassium Cancelled, Chloride Cancelled, Carbon Dioxide Cancelled, Anion Gap Cancelled, BUN Cancelled, Creatinine Cancelled, Estim Creat Clear Calc Cancelled, Est GFR (MDRD) Af Amer Cancelled, Est GFR (MDRD) Non-Af Cancelled, BUN/Creatinine Ratio Cancelled, Glucose Cancelled, Calcium Cancelled, Total Bilirubin Cancelled, AST Cancelled, ALT Cancelled, Alkaline Phosphatase Cancelled, Troponin I Cancelled, Total Protein Cancelled, Albumin Cancelled, Globulin Cancelled, Albumin/Globulin Ratio Cancelled, Lipase Cancelled 11/20/19 11:10: Lactic Acid Cancelled 11/20/19 11:10: Valproic Acid 98 11/20/19 11:45: Lactic Acid 1.1 11/20/19 11:45: Sodium 144, Potassium 4.2, Chloride 110 H, Carbon Dioxide 29.0, Anion Gap 5, BUN 16, Creatinine 0.83, Estim Creat Clear Calc 52.73, Est GFR (MDRD) Af Amer 88, Est GFR (MDRD) Non-Af 73, BUN/Creatinine Ratio 19.2, Glucose 99, Calcium 8.7, Total Bilirubin 0.40, AST 14 L, ALT 22, Alkaline Phosphatase 83, Troponin I < 0.015, Total Protein 7.3, Albumin 3.4, Globulin 3.9, Albumin/Globulin Ratio 0.9, Lipase 52 L 11/20/19 12:15: Urine Color Yellow, Urine Clarity Clear, Urine pH 7.0, Ur Specific [place] 1.010, Urine Protein Negative, Urine Glucose (UA) Normal, Urine Ketones 5 H, Urine Occult Blood Negative, Urine Nitrite Negative, Urine Bilirubin Negative, Urine Urobilinogen Normal, Ur Leukocyte Esterase 25 H, Urine RBC 0 SEEN, Urine WBC 0-5 SEEN, Ur Squamous Epith Cells 0 SEEN, Urine Bacteria 0 SEEN, Urine Mucus 0 SEEN 11/20/19 17:15: Troponin I < 0.015 11/20/19 18:01: POC Glucose 101 11/21/19 00:00: POC Glucose 136 H 11/21/19 06:08: WBC 11.6 H, RBC 3.45 L, Hgb 10.8 L, Hct 33.7 L, MCV 97.7, MCH 31.3, MCHC 32.0, RDW Std Deviation 48.8 H, RDW Coeff of [place] 13.6, Plt Count 188, MPV 9.9, Immature Gran % (Auto) 0.300, Neut % (Auto) 81.9 H, Lymph % (Auto) 12.8 L, [place] % (Auto) 4.9, Eos % (Auto) 0.0, Baso % (Auto) 0.1, Absolute Neuts (auto) 9.5 H, Absolute Lymphs (auto) 1.49, Nucleated RBC % 0 11/21/19 06:08: Sodium 136, Potassium 4.0, Chloride 105, Carbon Dioxide 26.0, Anion Gap 5, BUN 14, Creatinine 0.82, Estim Creat Clear Calc 53.38, Est GFR (MDRD) Af Amer 89, Est GFR (MDRD) Non-Af 74, BUN/Creatinine Ratio 17.0, Glucose 105, Calcium 8.1 L 11/21/19 06:27: POC Glucose 105 11/21/19 11:11: POC Glucose 76 Current Medications Acetaminophen (Tylenol) 650 mg PO Q6H PRN PRN PRN Reason: Pain Score 1-10/Temp > 100.7 F Albuterol Sulfate (Ventolin Aerosols) 2.5 mg INHALATION Q2H PRN PRN PRN Reason: SOB/Wheezing Aspirin (Aspirin, Baby) 81 mg PO DAILY@0800 [facility] Last Admin: 11/21/19 11:05 Dose: 81 mg Documented by: Atorvastatin Calcium (Lipitor) 80 mg PO QHS [facility] Last Admin: 11/20/19 21:58 Dose: Not Given Documented by: Carvedilol (Coreg) 12.5 mg PO BID [facility] Last Admin: 11/21/19 11:05 Dose: 12.5 mg Documented by: Clopidogrel Bisulfate (Plavix) 75 mg PO DAILY [facility] Last Admin: 11/21/19 11:05 Dose: 75 mg Documented by: Cyclobenzaprine HCl (Flexeril) 10 mg PO TID PRN PRN PRN Reason: muscle spasm Dextrose (D50w Syringe) 0 gm IV X1 PRN; Protocol PRN Reason: Hypoglycemia Divalproex Sodium (Depakote Er) 1,000 mg PO QHS [facility] Last Admin: 11/20/19 21:57 Dose: 1,000 mg Documented by: Enoxaparin Sodium (Lovenox) 40 mg SC DAILY [facility] Last Admin: 11/21/19 11:05 Dose: 40 mg Documented by: Gabapentin (Neurontin) 600 mg PO QHS [facility] Last Admin: 11/20/19 21:58 Dose: Not Given Documented by: Glucagon () 1 mg IM .X1 PRN PRN Reason: Hypoglycemia Pantoprazole Sodium 40 mg/ (Sodium Chloride) 110 mls @ 330 mls/hr IV Q12 [facility] Last Infusion: 11/21/19 10:31 Dose: Infused Documented by: Insulin Human Lispro (Humalog Kwikpen (Bkc)) 0 unit SC Q6 [facility]; Protocol Last Admin: 11/21/19 11:19 Dose: Not Given Documented by: Isosorbide Mononitrate (Imdur) 30 mg PO DAILY [facility] Last Admin: 11/21/19 11:05 Dose: 30 mg Documented by: Linagliptin (Tradjenta) 5 mg PO DAILY [facility] Last Admin: 11/21/19 11:05 Dose: 5 mg Documented by: Losartan Potassium (Cozaar) 50 mg PO BID [facility] Last Admin: 11/21/19 11:05 Dose: 50 mg Documented by: Morphine Sulfate () 2 mg IV Q3H PRN PRN PRN Reason: Pain Score 6-10/10 Last Admin: 11/21/19 10:07 Dose: 2 mg Documented by: Nitroglycerin (Nitrostat) 0.4 mg SUBLINGUAL Q5M PRN PRN Reason: CARDIAC/CHEST PAIN Last Admin: 11/20/19 20:26 Dose: 0.4 mg Documented by: Oxycodone HCl (Oxyir) 5 mg PO Q4H PRN PRN PRN Reason: Pain Score 4-5/10 Promethazine HCl (Phenergan) 12.5 mg IV Q4H PRN PRN PRN Reason: NAUSEA/VOMITING Senna/Docusate Sodium (Senokot-S, Shanice-Colace) 2 tablet PO BID PRN PRN PRN Reason: Constipation Sodium Chloride () 10 - 40 ml IV UD PRN PRN Reason: SALINE FLUSH Last Admin: 11/21/19 10:08 Dose: 10 ml Documented by: Sucralfate (Carafate) 1 gm PO 1HR_ACHS [facility] Last Admin: 11/21/19 11:05 Dose: 1 gm Documented by: Throat Lozenges (Cepacol Sore Throat Lozenge) 1 - 2 lozenge MUCOUS MEM Q2H PRN PRN PRN Reason: SORE THROAT Last Admin: 11/21/19 10:11 Dose: 1 lozenge Documented by: Medical Necessity - Tobacco Use Smoking Status: Never smoker Tobacco Use: Non-smoker Assessment/Plan All Active Problems (Last Reviewed 11/18/19 @ 09:32 by Alison Alcala) Foreign body in stomach (Acute) This is a 68 years old female patient presented to the emergency room because of abdominal pain found to have foreign body in the stomach penetrating the gastric antral wall, underwent upper EGD for removal of the foreign body which was fishbone. #1 foreign body stomach: Fishbone protruding the anterior gastric wall, status post upper EGD and removal. She is on IV Protonix. Today, she was started on clear liquids and started having abdominal pain again. Abdominal examination is benign, no acute abdomen. Her vital signs are stable. General surgery on the case. Plan to continue clear liquids, advance as tolerated. #2 CAD status post stents: Stable, no acute issues. Continue aspirin, statins, Plavix, Coreg, isosorbide mononitrate and losartan. #3 type 2 diabetes mellitus: Blood sugar stable, continue sliding scale and Tradjenta. #4 hypertension: Blood pressure stable, continue Coreg, nitrate and losartan. #5 seizure disorder: Stable, continue Depakote ER. #6 hyperlipidemia: Continue statins. #7 DVT prophylaxis: Subcu Lovenox. This note was generated with [employer] dictation software. It may contain incorrect words, spelling, and punctuation that were not noted in checking the note before signing. Inpatient E&M: [id number] Subs Hosp L2
--- NOTE | 2019-11-21 13:36 | CASEMGMT ---
RN CM Note: attempted to see patient for RN CM assessment. Pt is sleeping soundly, will defer. Jenn HAYESN RN ACM
--- NOTE | 2019-11-21 14:34 | CHAPLAIN ---
Type of Pastoral Visit _x__ Initial Visit ___ Follow-up Visit ___ On-call Visit ___ General Patient Visit ___ Spiritual Assessment ___ Family Conference ___ Bereavement ___ Rapid Response ___ Code Blue ___ Other (describe below) Pastoral Care Referral From _x__ Patient ___ Family ___ Nurse ___ Physician ___ Chart Writer ___ Plastering Supervisor ___ Other (describe below) Sacrament/Intervention _x__ Active listening ___ Anointing ___ Yazidi ___ Bereavement ___ Communion _x__ Wendi exploration ___ ___ Life review _x__ Prayer ___ Reconciliation ___ Sacrament of Sick _x__ Supportive presence ___ Wedding ___ Other (describe below) Pastoral Comments patient is relatively new to the area; pt is associated with [employer] [place]; pt describes health need and also her wendi which is what sustains her; pt asks for prayer and spiritual care support
[2019-11-21] MEDS: Divalproex (ER) 250 MG Tablet 1000 MG PO (22:22)
[2019-11-21] MEDS: Gabapentin 600 MG Tablet PO (22:22)
[2019-11-21] MEDS: Atorvastatin Calcium 80 MG Tablet PO (22:23)
[2019-11-22 00:15] LABS: Bedside Glucose 119 mg/dL (70-110)
[2019-11-22 02:59] VITALS: PULSE 86
[2019-11-22 04:10] VITALS: BP 99/60; PULSE 86; RESP 18; TEMP 37.1; O2SAT 96
[2019-11-22] MEDS: BENZOCAINE/MENTHOL 1 LOZENGE MUCOUS MEM (06:02)
[2019-11-22] MEDS: Sucralfate 1 GM Tablet PO (06:02)
[2019-11-22 06:11] LABS: Bedside Glucose 109 mg/dL (70-110)
[2019-11-22 07:00] VITALS: PULSE 82
[2019-11-22 08:12] VITALS: O2SAT 95
--- NOTE | 2019-11-22 08:14 | DCINST_ITS ---
- Discharge Diagnoses Current Active Problems: Current Active and Chronic Problems (Last Updated 11/22/19 @ 04:[address] Padmini Briggs MD) Foreign body in stomach (Acute) You will use the following diet at home:: Calorie/Carbohydrate Controlled (specify 1200, 1400, etc) - 1800 [place]., Cardiac Your food should be the consistency of: Soft (bite-sized & easy to chew/swallow) Discharge Activity: Return to Normal Activity Weight Bearing Status: Weight bearing as tolerated Call your doctor if you observe: Fever of 101 or Higher, Shortness of breath, Dizziness, Fainting spells, Chest pain, Increased palpitations (irregular heartbeat), Uncontrolled pain Additional Instructions: Return to the emergency department if the abdominal pain is worsening. Allergies/Adverse Reactions: Allergies prednisone Adverse Reaction (Verified 11/20/19 10:13) Nausea Medications to take at Discharge Aspirin [Aspirin, Baby] 81 mg PO DAILY@0800 02/26/17 Cyclobenzaprine HCl 10 mg PO TID PRN PRN #30 tab 03/23/18 atorvastatin 80 mg tablet 80 mg PO QHS #90 tab 05/20/19 carvedilol 12.5 mg tablet 12.5 mg PO BID #180 tab 05/20/19 clopidogrel 75 mg tablet 75 mg PO DAILY #90 tab 05/20/19 isosorbide mononitrate 30 mg tablet,extended release 24 hr 30 mg PO DAILY #90 tab 05/20/19 losartan 50 mg tablet 50 mg PO BID #180 tab 05/20/19 multivitamin 1 tab PO DAILY 05/20/19 divalproex 250 mg tablet,extended release 24 hr 1,000 mg PO QHS #120 tab 10/21/19 disability placard #1 ea 10/31/19 Inilet super thin lancets See Rx Instructions .ROUTE .MEDSUPPLY #200 ea 11/11/19 gabapentin 300 mg capsule 600 mg PO QHS #180 cap 11/17/19 Hydroxychloroquine Sulfate 200 mg PO BIDCM 11/20/19 Pantoprazole Sodium 40 mg PO QAM 11/20/19 Sitagliptin Phosphate [Januvia] 100 mg PO DAILY 11/20/19 Primary Care Physician: Kannan Garcia MD [Primary Care Provider] - Please follow up with your Primary Care Physician in: 1 WEEK. Test Results: Test results from this visit will be discussed in further detail at your follow- up appointment, if applicable. Please Follow Up With: Kannan Garcia MD Please Follow Up With: Pepe Ruiz MD
--- NOTE | 2019-11-22 08:24 | PN.SURG_ITS ---
Patient Problems: Active and Suspected Problems (Last Updated 11/22/19 @ 04:[address] Padmini Briggs MD) Foreign body in stomach (Acute) Subjective: Pt states abd is little better as well as throat - Physical Exam Vitals/I&O's: Vital Signs Temp Pulse Resp BP Pulse Ox 98.7 F 82 18 99/60 95 11/22/19 04:10 11/22/19 07:00 11/22/19 04:10 11/22/19 04:10 11/22/19 08:12 Oxygen Flow Rate (L/min) [4] 6 Oxygen Flow Rate (L/min) [2] 6 Oxygen Flow Rate (L/min) [1 ( 2 Initial Baseline)] Oxygen Flow Rate (L/min) 2 Oxygen Delivery Method [4] Nasal Cannula Oxygen Delivery Method [3] Ambu-Bag Oxygen Delivery Method [2] Nasal Cannula Oxygen Delivery Method [1 ( Nasal Cannula Initial Baseline)] Oxygen Delivery Method Room Air Weight: 186 lb 11.704 oz Body Mass Index (BMI) 34.2 Finger Stick Blood Glucose 123 Intake and Output for Last 24 Hours 11/20/19 11/21/19 11/22/19 23:59 23:59 23:59 Intake Total 1561.25 / 1561.25 1411.25 / 1411.25 100 / 100 Balance 1561.25 / 1561.25 1411.25 / 1411.25 100 / 100 General: Alert, Oriented x3, Cooperative, No apparent distress HEENT: Atraumatic Lungs: Normal air movement Abdomen: Soft, Non-Distended, Tender - mild ttp in RUQ/epigastric, no PS Laboratory Results 11/21/19 11:11: POC Glucose 76 11/21/19 23:44: POC Glucose 119 H 11/22/19 06:04: POC Glucose 109 Current Medications Acetaminophen (Tylenol) 650 mg PO Q6H PRN PRN PRN Reason: Pain Score 1-10/Temp > 100.7 F Albuterol Sulfate (Ventolin Aerosols) 2.5 mg INHALATION Q2H PRN PRN PRN Reason: SOB/Wheezing Aspirin (Aspirin, Baby) 81 mg PO DAILY@0800 [facility] Last Admin: 11/21/19 11:05 Dose: 81 mg Documented by: Atorvastatin Calcium (Lipitor) 80 mg PO QHS [facility] Last Admin: 11/21/19 22:23 Dose: 80 mg Documented by: Carvedilol (Coreg) 12.5 mg PO BID [facility] Last Admin: 11/21/19 22:22 Dose: 12.5 mg Documented by: Clopidogrel Bisulfate (Plavix) 75 mg PO DAILY [facility] Last Admin: 11/21/19 11:05 Dose: 75 mg Documented by: Cyclobenzaprine HCl (Flexeril) 10 mg PO TID PRN PRN PRN Reason: muscle spasm Dextrose (D50w Syringe) 0 gm IV X1 PRN; Protocol PRN Reason: Hypoglycemia Divalproex Sodium (Depakote Er) 1,000 mg PO QHS [facility] Last Admin: 11/21/19 22:22 Dose: 1,000 mg Documented by: Enoxaparin Sodium (Lovenox) 40 mg SC DAILY [facility] Last Admin: 11/21/19 11:05 Dose: 40 mg Documented by: Gabapentin (Neurontin) 600 mg PO QHS [facility] Last Admin: 11/21/19 22:22 Dose: 600 mg Documented by: Glucagon () 1 mg IM .X1 PRN PRN Reason: Hypoglycemia Pantoprazole Sodium 40 mg/ (Sodium Chloride) 110 mls @ 330 mls/hr IV Q12 [facility] Last Infusion: 11/21/19 22:47 Dose: Infused Documented by: Insulin Human Lispro (Humalog Nerispen (Bkc)) 0 unit SC Q6 [facility]; Protocol Last Admin: 11/22/19 06:05 Dose: Not Given Documented by: Isosorbide Mononitrate (Imdur) 30 mg PO DAILY [facility] Last Admin: 11/21/19 11:05 Dose: 30 mg Documented by: Linagliptin (Tradjenta) 5 mg PO DAILY [facility] Last Admin: 11/21/19 11:05 Dose: 5 mg Documented by: Losartan Potassium (Cozaar) 50 mg PO BID [facility] Last Admin: 11/21/19 22:22 Dose: 50 mg Documented by: Morphine Sulfate () 2 mg IV Q3H PRN PRN PRN Reason: Pain Score 6-10/10 Last Admin: 11/21/19 10:07 Dose: 2 mg Documented by: Nitroglycerin (Nitrostat) 0.4 mg SUBLINGUAL Q5M PRN PRN Reason: CARDIAC/CHEST PAIN Last Admin: 11/20/19 20:26 Dose: 0.4 mg Documented by: Oxycodone HCl (Oxyir) 5 mg PO Q4H PRN PRN PRN Reason: Pain Score 4-5/10 Promethazine HCl (Phenergan) 12.5 mg IV Q4H PRN PRN PRN Reason: NAUSEA/VOMITING Senna/Docusate Sodium (Senokot-S, Shanice-Colace) 2 tablet PO BID PRN PRN PRN Reason: Constipation Sodium Chloride () 10 - 40 ml IV UD PRN PRN Reason: SALINE FLUSH Last Admin: 11/21/19 22:26 Dose: 10 ml Documented by: Sucralfate (Carafate) 1 gm PO 1HR_ACHS KIT Last Admin: 11/22/19 06:02 Dose: 1 gm Documented by: Throat Lozenges (Cepacol Sore Throat Lozenge) 1 - 2 lozenge MUCOUS MEM Q2H PRN PRN PRN Reason: SORE THROAT Last Admin: 11/22/19 06:02 Dose: 1 lozenge Documented by: Medical Necessity - Tobacco Use Smoking Status: Never smoker Tobacco Use: Non-smoker Assessment/Plan All Active Problems (Last Updated 11/22/19 @ 04:[address] Padmini Briggs MD) Foreign body in stomach (Acute) History of left heart catheterization (Resolved 09/20/18) 68-year-old female presents with epigastric pain CT abdomen pelvis with edema of the gastric antral wall questionable foreign body ok to d/c home, continue full liquids/soft foods for about 1 week, PPI & carafate x 2 weeks, f/u w me PRN Padmini Briggs M.D. Pager: [phone] [facility] [address] [place] [address], Outpatient Pavilion, [address] [place] [address] Office: [phone] Inpatient E&M: [id number] [facility]
[2019-11-22] MEDS: Aspirin 81 MG TAB.CHEW PO (08:34)
[2019-11-22 08:35] VITALS: BP 99/60; PULSE 86; RESP 18; TEMP 37.1; O2SAT 96
--- NOTE | 2019-11-22 09:31 | PHA.DC.MR ---
Pharmacy Service has performed discharge medication reconciliation for this patient. The patient's discharge medication list was reviewed for discrepancies and discrepancies were resolved. Home Medications Aspirin [Aspirin, Baby] 81 mg PO DAILY@0800 02/26/17 Cyclobenzaprine HCl 10 mg PO TID PRN PRN #30 tab 03/23/18 atorvastatin 80 mg tablet 80 mg PO QHS #90 tab 05/20/19 carvedilol 12.5 mg tablet 12.5 mg PO BID #180 tab 05/20/19 clopidogrel 75 mg tablet 75 mg PO DAILY #90 tab 05/20/19 isosorbide mononitrate 30 mg tablet,extended release 24 hr 30 mg PO DAILY #90 tab 05/20/19 losartan 50 mg tablet 50 mg PO BID #180 tab 05/20/19 multivitamin 1 tab PO DAILY 05/20/19 divalproex 250 mg tablet,extended release 24 hr 1,000 mg PO QHS #120 tab 10/21/19 disability placard #1 ea 10/31/19 Inilet super thin lancets See Rx Instructions .ROUTE .MEDSUPPLY #200 ea 11/11/19 gabapentin 300 mg capsule 600 mg PO QHS #180 cap 11/17/19 Hydroxychloroquine Sulfate 200 mg PO BIDCM 11/20/19 Pantoprazole Sodium 40 mg PO QAM 11/20/19 Sitagliptin Phosphate [Januvia] 100 mg PO DAILY 11/20/19
--- NOTE | 2019-11-22 09:37 | CASEMGMT ---
Assessment- SW completed assessment with patient at bedside. SW also confirmed patient's contact information as well as her contacts listed on her demographics. Living situation- Patient lives with her grandson in a 3rd floor apartment. There is no elevator. PCP: Dr Garcia Specialists: None Pharmacy: [facility] DME: None ADL's/IADL's: Patient is independent in all activities except for driving. She either walks or takes a taxi. She works at [employer] Past SNF/rehab: None Past HH: None LW: Yes and it is on file at [facility] POA: Yes and it is on file at [facility]. Her niece Amie Starkey is her HCPOA. Plan: Patient is up for discharge today. She denies any home going needs. She is ready to return to work. Renea VILLAR[employer]
--- NOTE | 2019-11-22 10:26 | DCINST_ITS ---
Discharge Diet: - - full/soft diet for about 1 week Discharge Activity: Return to Normal Activity Weight Bearing Status: Weight bearing as tolerated Call your doctor if you observe: Fever of 101 or Higher, Shortness of breath, Dizziness, Fainting spells, Chest pain, Increased palpitations (irregular heartbeat), Uncontrolled pain Allergies/Adverse Reactions: Allergies prednisone Adverse Reaction (Verified 11/20/19 10:13) Nausea Medications to take at Discharge Aspirin [Aspirin, Baby] 81 mg PO DAILY@0800 02/26/17 Cyclobenzaprine HCl 10 mg PO TID PRN PRN #30 tab 03/23/18 atorvastatin 80 mg tablet 80 mg PO QHS #90 tab 05/20/19 carvedilol 12.5 mg tablet 12.5 mg PO BID #180 tab 05/20/19 clopidogrel 75 mg tablet 75 mg PO DAILY #90 tab 05/20/19 isosorbide mononitrate 30 mg tablet,extended release 24 hr 30 mg PO DAILY #90 t ab 05/20/19 losartan 50 mg tablet 50 mg PO BID #180 tab 05/20/19 multivitamin 1 tab PO DAILY 05/20/19 divalproex 250 mg tablet,extended release 24 hr 1,000 mg PO QHS #120 tab 10/21/19 disability placard #1 ea 10/31/19 Inilet super thin lancets See Rx Instructions .ROUTE .MEDSUPPLY #200 ea 11/11/19 gabapentin 300 mg capsule 600 mg PO QHS #180 cap 11/17/19 Hydroxychloroquine Sulfate 200 mg PO BIDCM 11/20/19 Pantoprazole Sodium 40 mg PO QAM 11/20/19 Sitagliptin Phosphate [Januvia] 100 mg PO DAILY 11/20/19 Benzocaine/Menthol [Cepacol Sore Throat Lozenge] 1 lucas MM Q2H PRN PRN #20 lucas 11/22/19 Pantoprazole Sodium [Protonix] 40 mg PO BID #28 tab 11/22/19 Sucralfate [Carafate] 1 gm PO 4X/DAY #50 tab 11/22/19 The following prescriptions were given: Sucralfate [Carafate] 1 gm PO 4X/DAY #50 tab Transmission Status: Pending to [facility] #30 Benzocaine/Menthol [Cepacol Sore Throat Lozenge] 1 lucas MM Q2H PRN PRN #20 lucas PRN Reason: Sore Throat Transmission Status: Pending to [employer] [facility] #30 Pantoprazole Sodium [Protonix] 40 mg PO BID #28 tab Transmission Status: Pending to [facility] #30 Primary Care Physician: Kannan Garcia MD [Primary Care Provider] - Please follow up with your Primary Care Physician in: 1 WEEK. Test Results: Test results from this visit will be discussed in further detail at your follow- up appointment, if applicable. Please Follow Up With: Kannan Garcia MD Please Follow Up With: Pepe Ruiz MD Please Follow Up With: Padmini Briggs MD When: PRN Proposed Discharge Date: 11/22/19
--- NOTE | 2019-11-22 11:04 | PCM.DC.SUM ---
Discharge Date and Diagnosis Date of Admission: 11/20/19 Date of Discharge: 11/22/19 - Primary Discharge Diagnosis Acute Problems: Foreign body stomach (fishbone) status post removal by upper EGD. - Secondary Discharge Diagnosis Chronic Problems: Chronic Problems (Last Updated 11/22/19 @ 04:[address] Padmini Briggs MD) Type 2 diabetes mellitus (Chronic) Seizures (Chronic) Coronary artery disease (Chronic) Seizures (Chronic) Diabetes type 2, controlled (Chronic) Atherosclerotic heart disease of [place] coronary artery without angina pectoris (Chronic) History of coronary artery stent placement (Chronic 03/22/18) PCI-YESENIA-Mid LAD w/ 3.0 X 38 mm Promus Synergy, YESENIA to Mid-Distal LAD ISR w/2.5 X 38 mm Promus Synergy and YESENIA to proximal RCA w/ 2.5 X 12 mm Promus Synergy 03/22/18 Chronic diastolic CHF (congestive heart failure) (Chronic) Essential (primary) hypertension (Chronic) Hyperlipidemia (Chronic) Hospital Course and Treatment Imaging Results: Clinical Impression(s) from Imaging Studies Abdomen/Pelvis CT 11/20/19 12:16 IMPRESSION: 1. Abnormal intramural edema of the gastric antrum with suspicious 1.5 cm curvilinear radiopaque foreign body penetrating the gastric antral hightower. EGD will be very helpful for further evaluation. 2. Mild diffuse hepatic steatosis is a new finding. 3. Suspicious high-grade stenosis of the right renal artery origin due to calcified and noncalcified plaques. 4. Calcified plaques without significant stenosis of the left renal artery. 5. Right lower renal pole cyst and tiny left upper renal pole cyst. 6. No other additional findings or changes when compared to 02/26/2017. Electronically Signed: Cayden Matias MD at 13:40 EDT , Service support , ADDENDUM: 11/20/19 2261 IMPRESSION: 1. Abnormal intramural edema of the gastric antrum with suspicious 1.5 cm curvilinear radiopaque foreign body penetrating the gastric antral hightower. EGD will be very helpful for further evaluation. 2. Mild diffuse hepatic steatosis is a new finding. 3. Suspicious high-grade stenosis of the right renal artery origin due to calcified and noncalcified plaques. 4. Calcified plaques without significant stenosis of the left renal artery. 5. Right lower renal pole cyst and tiny left upper renal pole cyst. 6. No other additional findings or changes when compared to 02/26/2017. N.B. : The above information has been verbally conveyed by Cayden Matias MD to Dr. Marcello MD, on 11/20/2019 14:00:07 (ET). Electronically Signed: Cayden Matias MD at 13:40 EDT , Service support , Dr. Garrett, general surgery. Operations: None Procedures: EGD Summary of Care Provided: Patient seen and examined on the day of discharge and appeared to be stable to be discharged home. She has been tolerating full liquid diet. Her vital signs are stable. The patient is a 68 year old F presented to the emergency room because of abdominal pain and she was found to have foreign body in the stomach penetrating the gastric antral wall. CT scan abdomen and pelvis done and revealed intraluminal edema of the gastric antrum with 1.5 cm curvilinear radiopaque foreign body penetrating the gastric antral hightower. Patient was admitted to the hospital, underwent upper EGD and that foreign body was removed which was fishbone. Patient was treated with PPI, IV fluids and pain medications. Her routine blood work was unremarkable. After foreign body removal, patient was started on clear liquids and her diet advanced as tolerated. She has been on full liquid/soft diet since yesterday and she has been doing okay. Patient discharged home in a stable condition, discharged on PPI which she was already on, instructed to stay on full liquid/soft diet for 1 week according to general surgery, continued on her previous home medications without any changes, recommended follow-up with general surgery if needed, follow-up with PCP in 1 week. - Physical Exam Vitals/I&O's: Vital Signs Temp Pulse Resp BP Pulse Ox 98.7 F 86 18 99/60 96 11/22/19 08:35 11/22/19 08:35 11/22/19 08:35 11/22/19 08:35 11/22/19 08:35 Oxygen Flow Rate (L/min) [4] 6 Oxygen Flow Rate (L/min) [2] 6 Oxygen Flow Rate (L/min) [1 ( 2 Initial Baseline)] Oxygen Flow Rate (L/min) 2 Oxygen Delivery Method [4] Nasal Cannula Oxygen Delivery Method [3] Ambu-Bag Oxygen Delivery Method [2] Nasal Cannula Oxygen Delivery Method [1 ( Nasal Cannula Initial Baseline)] Oxygen Delivery Method Room Air Weight: 186 lb 11.704 oz Body Mass Index (BMI) 34.2 Finger Stick Blood Glucose 123 Intake and Output for Last 24 Hours 11/20/19 11/21/19 11/22/19 23:59 23:59 23:59 Intake Total 1561.25 / 1561.25 1411.25 / 1411.25 100 / 100 Balance 1561.25 / 1561.25 1411.25 / 1411.25 100 / 100 General: Alert, Oriented x3, Cooperative, No apparent distress HEENT: Atraumatic, PERRLA, EOMI, Normocephalic Oral: Moist Mucosa, No Gingival or Mucosal Lesions/ Ulcerations Neck: Supple, No JVD, Negative Carotid Bruits, Trachea Midline, Thyroid Normal Size and Texture Lungs: Clear to auscultation, Normal air movement, No rhonchi, No wheeze, No rales Cardiovascular: Regular rate, Regular Rhythm, Normal S1, Normal S2, PMI Normal Abdomen: Bowel Sounds Present, Soft, Non Tender, Non-Distended, No Hepato-splenomegaly Extremities: No clubbing, No cyanosis, No edema Skin: No rashes, No breakdown Lymphatic: No Cervical, Supraclavicular, or Inguinal Adenopathy Neurological: Cranial nerves II-XII grossly intact, Neuro grossly intact Psych/Mental Status: Normal Affect, Appropriate Laboratory Results 11/21/19 11:11: POC Glucose 76 11/21/19 23:44: POC Glucose 119 H 11/22/19 06:04: POC Glucose 109 Discharge Diet: - - full/soft diet for about 1 week Discharge Activity: Return to Normal Activity Weight Bearing Status: Weight bearing as tolerated Call your doctor if you observe: Fever of 101 or Higher, Shortness of breath, Dizziness, Fainting spells, Chest pain, Increased palpitations (irregular heartbeat), Uncontrolled pain Home Medications: Medications to take at Discharge Aspirin [Aspirin, Baby] 81 mg PO DAILY@0800 02/26/17 Cyclobenzaprine HCl 10 mg PO TID PRN PRN #30 tab 03/23/18 atorvastatin 80 mg tablet 80 mg PO QHS #90 tab 05/20/19 carvedilol 12.5 mg tablet 12.5 mg PO BID #180 tab 05/20/19 clopidogrel 75 mg tablet 75 mg PO DAILY #90 tab 05/20/19 isosorbide mononitrate 30 mg tablet,extended release 24 hr 30 mg PO DAILY #90 tab 05/20/19 losartan 50 mg tablet 50 mg PO BID #180 tab 05/20/19 multivitamin 1 tab PO DAILY 05/20/19 divalproex 250 mg tablet,extended release 24 hr 1,000 mg PO QHS #120 tab 10/21/19 disability placard #1 ea 10/31/19 Inilet super thin lancets See Rx Instructions .ROUTE .MEDSUPPLY #200 ea 11/11/19 gabapentin 300 mg capsule 600 mg PO QHS #180 cap 11/17/19 Hydroxychloroquine Sulfate 200 mg PO BIDCM 11/20/19 Pantoprazole Sodium 40 mg PO QAM 11/20/19 Sitagliptin Phosphate [Januvia] 100 mg PO DAILY 11/20/19 Benzocaine/Menthol [Cepacol Sore Throat Lozenge] 1 lucas MM Q2H PRN PRN #20 lucas 11/22/19 Pantoprazole Sodium [Protonix] 40 mg PO BID #28 tab 11/22/19 Sucralfate [Carafate] 1 gm PO 4X/DAY #50 tab 11/22/19 Following Prescrptions Were Given to Patient: Sucralfate [Carafate] 1 gm PO 4X/DAY #50 tab Transmission Status: Received by [employer] #30 Benzocaine/Menthol [Cepacol Sore Throat Lozenge] 1 lucas MM Q2H PRN PRN #20 lucas PRN Reason: Sore Throat Transmission Status: Received by [employer] #30 Pantoprazole Sodium [Protonix] 40 mg PO BID #28 tab Transmission Status: Received by [employer] [facility] #30 Primary Care Physician: Kannan Garcia MD [Primary Care Provider] - Please follow up with your Primary Care Physician in: 1 WEEK. Please Follow Up With: Kannan Garcia MD Please Follow Up With: Pepe Ruiz MD Please Follow Up With: Padmini Briggs MD When: PRN Disposition: Home Minutes spent on discharge:: 33 Patient Condition:: Stable Medical Necessity - Tobacco Use Smoking Status: Never smoker Tobacco Use: Non-smoker Meaningful Use Info Meaningful Use Diagnoses (Choose all that apply): None applicable Inpatient E&M: 38673 Disch Hosp
--- NOTE | 2019-11-23 16:24 | CASEMGMT ---
KARINA BRYANT Discharge Follow-up Phone Call: KERRI: 12 Strata: 3 Call Date: 11/23/2019 Discharge Date: 11/22/2019 Time of Call: 1620 Admitting Diagnosis: Foreign body in stomach Call placed to patient. Patient states her abdominal pain has improved/decreased but continues to c/o a sore throat. States she is using the Cepacol lozenges and is eating soups. Reports other foods are painful to swallow. States the Cepacol does help. Patient aware of the need to follow-up with Dr. Garcia in one week. She has not made this appointment yet but states that she will. Encouraged the patient to make the appointment to have her throat assessed. Pt states she does check her blood sugar regularly and reports it to run 110-135. She has not experienced any hypoglycemia with her decreased PO intake. Pt denied any questions regarding her discharge instructions or medications. No further needs identified. Vida Tapia RN CM
== END 2019-11-22 11:01 | disposition home or self-care (01) | DRG 394 ==
LOC: ED 14:37 → PCU 16:16
PROVIDERS: Surgery; Admitting Provider Internal Medicine; Emergency Provider Emergency Medicine; PCP Internal Medicine; Visit Provider Hospitalist
PROC: 0DJ08ZZ Inspection of Upper Intestinal Tract, Via Natural or Artificial Opening Endoscopic (ICD-10-PCS; CPT 43235; principal; 2019-11-20 15:00)
DX: T18.2XXA Foreign body in stomach, initial encounter (principal); I50.32 Chronic diastolic (congestive) heart failure; R09.02 Hypoxemia; E11.9 Type 2 diabetes mellitus without complications; E78.5 Hyperlipidemia, unspecified; G40.909 Epilepsy, unspecified, not intractable, without status epilepticus; I11.0 Hypertensive heart disease with heart failure; I70.1 Atherosclerosis of renal artery; M06.9 Rheumatoid arthritis, unspecified; M19.90 Unspecified osteoarthritis, unspecified site; E86.0 Dehydration; I25.10 Atherosclerotic heart disease of native coronary artery without angina pectoris; G47.33 Obstructive sleep apnea (adult) (pediatric); F44.9 Dissociative and conversion disorder, unspecified; M25.472 Effusion, left ankle; M25.471 Effusion, right ankle; M79.89 Other specified soft tissue disorders; M25.461 Effusion, right knee; M25.561 Pain in right knee; Z79.4 Long term (current) use of insulin; Z68.34 Body mass index [BMI] 34.0-34.9, adult; Z79.02 Long term (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 of antithrombotics/antiplatelets; Z79.82 Long term (current) use of aspirin; Z79.899 Other long term (current) drug therapy; Z95.5 Presence of coronary angioplasty implant and graft
CPT/HCPCS: 36415; 73562; 74177; 80048; 80053; 80164; 81001; 82962; 83605; 83690; 84484; 85025; 93005; 93971; 97802; 99156; 99251; 99285; J7030; J7120; Q9967; A4216; G0463; J3490

== ENCOUNTER → 2019-12-05 11:03 | Outpatient (CLI) | payer MEDICARE, SELFPAY ==
[2018-03-22 11:02] VITALS: BMI 32.7
[2019-11-20 17:32] VITALS: BMI 34.2
--- NOTE | 2019-12-05 11:05 | RAD_ITS ---
STUDY: X-RAY - RIGHT KNEE REASON FOR EXAM: Female, 69 years old. KNEE PAIN TECHNIQUE: 4 view(s) of the knee. COMPARISON: Comparison is made with prior study dated 11/18/2019. FINDINGS: Normal visualized distal femur. Normal visualized proximal tibia and fibula. Normal proximal tibiofibular articulation. There is severe degenerative arthrosis of the medial femorotibial compartment with severe joint space narrowing. There is mild degenerative arthrosis of the lateral femorotibial compartment. There is moderate degenerative arthrosis of the patellofemoral articulation. Small joint effusion. RAD/Knee 4 or More Views IMPRESSION: Degenerative arthrosis. Electronically Signed: Tor Artis, at 10:40 EDT , Service support ,
== END ==
PROVIDERS: PCP Internal Medicine; Referring Provider Orthopaedic Surgery; Visit Provider Orthopaedic Surgery
DX: M25.561 Pain in right knee (principal); M79.89 Other specified soft tissue disorders
CPT/HCPCS: 73564

== ENCOUNTER 2020-01-03 03:34 | Emergency (ER) | payer MEDICARE, SELFPAY ==
[2018-03-22 11:02] VITALS: BMI 32.7
[2019-12-06 09:31] VITALS: BMI 34.2
[2020-01-03 03:35] VITALS: BP 173/89; PULSE 122; RESP 18; TEMP 36.6; O2SAT 96; BMI 36.0
--- NOTE | 2020-01-03 03:37 | ED.DCSUM_ITS ---
History of Present Illness Chief Complaint: Seizure Informant: Patient Narrative: 69-year-old female with past medical history of seizures and coronary artery disease presents with concern for seizure. 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 They had to kick the door ran to get to her at this longterm. Patient very postictal on arrival of EMS. Patient currently alert and oriented and states that she has been taking her medication as prescribed. Patient is on Depakote. States that she has not seized in multiple years. Denies any chest pain, shortness of breath, nausea, vomiting, headache, vision change, neck pain. Past Medical History - Allergies and Home Meds Allergies/Adverse Reactions: Allergies prednisone Adverse Reaction (Verified 01/03/20 03:38) Nausea Primary Care Physician: Kannan Garcia MD [Primary Care Provider] - Past Medical History: - - Seizure, hypertension, coronary artery disease Surgical History: angioplasty, hysterectomy, - Lives: With Family Smoking Status: Never smoker Alcohol: None Drugs: None - Family History Maternal Family History: Family History (Last Reviewed 12/06/19 @ 09:29 by Alison Alcala) Grandmother Alcoholism Cancer Arthritis Mother Alcoholism Diabetes blood clots Hypertension Grandfather Heart disease Sister Thyroid disorder Other Breast cancer Cervical cancer Colon cancer Family History: Reports: Diabetes - age 60 Paternal Family History: Family History (Last Reviewed 12/06/19 @ 09:29 by Alison Alcala) Grandmother Alcoholism Cancer Arthritis Mother Alcoholism Diabetes blood clots Hypertension Grandfather Heart disease Sister Thyroid disorder Other Breast cancer Cervical cancer Colon cancer Family History: Reports: Unknown Review of Systems General: Denies: Chills, Fever, Sweats Eyes: Denies: Visual changes - bilaterally, Diplopia ENT: Denies: Rhinorrhea, Sore throat Cardiovascular: Denies: Chest pain, Palpitations Respiratory: Denies: Dyspnea, Cough, Dyspnea on exertion Gastrointestinal: Denies: Abdominal pain, Nausea, Vomiting, Diarrhea, Melena, Hematochezia Genitourinary: Denies: Dysuria, Hematuria, Frequency Musculoskeletal: Denies: Back pain, Extremity Pain Skin: Denies: Rash, Wounds Neurological: Reports: - - Seizure. Denies: Headache, Weakness, Numbness Physical Exam Inital Vital Signs reviewed: Yes General: Well nourished, Well developed, No Acute Distress Head: Normocephalic, Atraumatic Eyes: Perrl, EOMI ENT: Moist mucous membranes, No rhinorrhea Neck: Supple, Nontender Cardiovascular: Regular rate, Regular rhythm, No murmurs Respiratory: No distress, CTA bilaterally, Chest nontender Abdomen: Soft, Nontender, Nondistended, Normal bowel sounds Back: Nontender, Normal Inspection Extremities: Nontender, No edema Skin: Normal color, No rash Neurological: Alert, Oriented x3, Cranial nerves II-XII grossly intact, Normal Strength, Normal Sensation Psychological: Normal affect, Normal Mood Diagnostic/Tx/Re-eval Clinical Impression(s) from Imaging Studies Brain CT 01/03/20 03:39 IMPRESSION: Atrophy. No evidence of acute hemorrhage infarct or edema. Electronically Signed: Tessa Amador MD at 4:40 EDT Tel , Service support , Laboratory Data 01/03/20 01/03/20 01/03/20 03:50 03:50 03:50 WBC 7.8 RBC 3.92 L Hgb 12.3 Hct 38.1 MCV 97.2 MCH 31.4 MCHC 32.3 RDW Std Deviation 50.1 H RDW Coeff of Lawrence 14.0 Plt Count 228 MPV 10.6 Immature Gran % (Auto) 1.300 H Neut % (Auto) 55.9 Lymph % (Auto) 34.7 Levy % (Auto) 5.3 Eos % (Auto) 2.4 Baso % (Auto) 0.4 Absolute Neuts (auto) 4.4 Absolute Lymphs (auto) 2.70 Nucleated RBC % 0 Sodium 139 Potassium 4.1 Chloride 107 Carbon Dioxide 21.0 Anion Gap 11 BUN 20 H Creatinine 1.11 H Estim Creat Clear Calc 38.90 Est GFR (MDRD) Af Amer 63 Est GFR (MDRD) Non-Af 52 L BUN/Creatinine Ratio 18.0 Glucose 201 H Calcium 8.5 Total Bilirubin 0.30 AST 37 ALT 38 Alkaline Phosphatase 112 Troponin I < 0.015 Total Protein 8.3 H Albumin 3.7 Globulin 4.6 H Albumin/Globulin Ratio 0.8 L Valproic Acid < 3 L - Rhythm Strip Rhythm Strip: Sinus Tach Rate: 112 Ectopy: None - EKG Initial EKG Interpretation: Sinus Tachycardia - Sinus tachycardia at 112 bpm. FL interval of 152 ms. QTC of 485 ms. No evidence of ST elevation or depression at this time. Prior: Unchanged - from 11/20/19 - Medical Decision Making Patient appears well and nontoxic. Tachycardic on arrival but otherwise normotensive. CT brain negative. Lab work shows no valproic acid present. Upon further discussion with patient states that she has been unable to feel her prescription over the past few days. Patient was given 500 mg IV Depakote. Will be written prescription for her medication. Given small fluid bolus. Feeling improved. Discharged home and asked to follow-up with her neurologist. Stable at time of discharge. 1. Breakthrough seizure 2. Medical non-compliance ED Disposition - Plan for ED Patient: Disposition: Home or Assisted Living Instructions: ED Seizure Recurrent Adult Prescriptions: Divalproex (ER) [Depakote ER] 1,000 mg PO DAILY #20 tab Prescription Printed Referrals: Kannan Garcia MD [Primary Care Provider] -
--- NOTE | 2020-01-03 03:39 | CT_ITS ---
STUDY: CT BRAIN WITHOUT CONTRAST REASON FOR EXAM: Female, 69 years old. TRAUMA, HEAD INJURY, SEIZURE RADIATION DOSAGE (If Supplied By Facility): CTDIvol = ( 44.99 ) mGy, DLP = ( 762.36 ) mGycm TECHNIQUE: Transaxial CT imaging of the brain was performed without administration of intravenous contrast material. Individualized dose optimization techniques were used for this CT. COMPARISON: 04/26/2020 CT head FINDINGS: Normal soft tissue structures. Normal calvarium. There is mild cerebral atrophy with widening of the extra-axial spaces and ventricular dilatation. There are areas of decreased attenuation within the white matter tracts of the supratentorial brain, consistent with microvascular disease changes. There are small punctate calcifications of the basal ganglia which are seen in the aging brain as a normal variant. Normal brainstem. Normal cerebellum. There is no intracranial hemorrhage. There are no findings of an acute ischemic infarction. Normal visualized paranasal sinuses. CT/Brain/Head without Contrast IMPRESSION: Atrophy. No evidence of acute hemorrhage infarct or edema. Electronically Signed: Tessa Amador MD at 4:40 EDT Tel , Service support ,
--- NOTE | 2020-01-03 03:40 | EKG12_ITS ---
Test Reason : SEIZURE Blood Pressure : / mmHG Vent. Rate : 112 BPM Atrial Rate : 112 BPM P-R Int : 152 ms QRS Dur : 082 ms QT Int : 356 ms P-R-T Axes : 047 005 023 degrees QTc Int : 485 ms Sinus tachycardia Otherwise normal ECG Confirmed by MILADY ZUNIGA, TRUDY ([id number]), technical writer and editor CLAUDIA HECTOR ([id number]) on 01/05/2020 11:35:17 AM Referred By: NATALY Confirmed By:TRUDY HENNING MD
[2020-01-03 04:02] LABS: Absolute Neutrophil Count 4.4 X10^3/uL (2.0-7.7); Basophil# 0.03 X10^3/uL; Basophil% 0.4 % (0-1); Eosinophil# 0.19 X10^3/uL; Eosinophils% 2.4 % (0-5); Hematocrit 38.1 % (37-47); Hemoglobin 12.3 g/dL (12.0-15.0); Lymphocyte % 34.7 % (19-41); Mean Corp Hgb Conc 32.3 g/dL (32-36); Mean Corpuscular Hgb 31.4 pg (27.0-32.0); Mean Corpuscular Volume 97.2 fL (81-99); Mean Platelet Vol. 10.6 fl (6.2-12.0); Monocyte# 0.41 X10^3/uL; Monocyte% 5.3 % (0-10); NRBC Flagged by Analyzer 0 % (0-5); Neutrophil # 4.35 X10^3/uL (2.7-7.7); Neutrophil % 55.9 % (47-70); Platelet Count 228 K/mm3 (150-450); RBC Distribution Width SD 50.1 fl (35.1-43.9); Red Blood Count 3.92 M/mm3 (4.2-5.4); White Blood Count 7.8 K/mm3 (4.4-11.0)
[2020-01-03] MEDS: 0.9% Normal Saline 1,000 ML 1000 ML IV (04:08)
[2020-01-03 04:16] LABS: Valproic Acid (Depakene) Level < 3 ug/mL (50-100)
[2020-01-03 04:24] LABS: ALB/GLOB Ratio 0.8 RATIO (0.9-2.4); AST(SGOT) 37 U/L (15-37); Alanine Aminotransfer ALT/SGPT 38 U/L (13-56); Albumin, Serum 3.7 g/dL (3.2-5.0); Alkaline Phosphatase 112 U/L (45-117); Anion Gap 11 (5-15); BUN 20 mg/dL (7-18); Calcium,Total 8.5 mg/dL (8.5-10.1); Chloride 107 mmol/L (98-107); Creatinine, Serum 1.11 mg/dL (0.55-1.02); EST Glomerular Filtration Rate 52 mL/min (>60); Est Glom Filt Rate - Afr Amer 63 mL/min (>60); Globulin 4.6 g/dL (2.2-4.2); Glucose 201 mg/dL (74-106); Potassium 4.1 mmol/L (3.5-5.1); Protein, Total 8.3 g/dL (6.4-8.2); Sodium Level 139 mmol/L (136-145)
[2020-01-03 05:39] VITALS: BP 154/81; PULSE 88; RESP 16; O2SAT 95
== END 2020-01-03 06:00 | disposition home or self-care (01) ==
PROVIDERS: Emergency Provider Emergency Medicine; PCP Internal Medicine
DX: R56.9 Unspecified convulsions (principal); I25.10 Atherosclerotic heart disease of native coronary artery without angina pectoris
CPT/HCPCS: 70450; 80053; 80164; 84484; 85025; 93005; 96365; 99285; J7030; A4216

== ENCOUNTER → 2020-01-04 14:57 | Outpatient (CLI) | payer MEDICARE, SELFPAY ==
[2018-03-22 11:02] VITALS: BMI 32.7
[2020-01-04 14:18] VITALS: BMI 36.0
[2020-01-04 18:21] LABS: Valproic Acid (Depakene) Level 65 ug/mL (50-100)
== END ==
PROVIDERS: PCP Internal Medicine; Referring Provider Internal Medicine; Visit Provider Internal Medicine
DX: R56.9 Unspecified convulsions (principal)
CPT/HCPCS: 36415; 80164

== ENCOUNTER 2020-01-13 17:27 | Emergency (ER) | payer MEDICARE, SELFPAY ==
[2018-03-22 11:02] VITALS: BMI 32.7
[2020-01-13 13:25] VITALS: BMI 34.2
[2020-01-13 17:29] VITALS: BP 138/82; PULSE 95; RESP 16; TEMP 36.1; O2SAT 100; BMI 33.0
--- NOTE | 2020-01-13 18:27 | ED.DCSUM_ITS ---
History of Present Illness Chief Complaint: Lower Extremity Injury Informant: Patient Onset: Days Context: Sudden Onset Timing: Continuous Quality: Pain Location: Right knee Current Severity: Severe Maximum Severity: Severe Worsened by: Movement and weightbearing Relieved by: Nothing Associated Symptoms: Nothing Narrative: Patient is a 69-year-old woman who presents with atraumatic right knee pain. She was seen by orthopedics and had a intra-articular injection. She is not a candidate for NSAIDs because of medical problems and medication. She denies fever, chills night sweats. Denies history of gout or pseudogout. She does have osteoarthritis predominantly medial side. 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 There is no history of trauma since visit. Prior similar symptoms: Yes Recent Illness/Hospitalization: Yes - December 05, 2019 - Past Medical History (1) Localized osteoarthritis of right knee Status: Acute (2) Atherosclerotic heart disease of [place] coronary artery without angina pectoris Status: Chronic (3) Chronic diastolic CHF (congestive heart failure) Status: Chronic (4) Diabetes type 2, controlled Status: Chronic (5) Essential (primary) hypertension Status: Chronic (6) History of coronary artery stent placement Status: Chronic Comment: PCI-YESENIA-Mid LAD w/ 3.0 X 38 mm Promus Synergy, YESENIA to Mid-Distal LAD w/2.5 X 38 mm Promus [id number] (7) Hyperlipidemia Status: Chronic (8) Seizures Status: Chronic Past Medical History - Allergies and Home Meds Allergies/Adverse Reactions: Allergies prednisone Adverse Reaction (Verified 01/13/20 17:28) Nausea Primary Care Physician: Kannan Garcia MD [Primary Care Provider] - Prior records reviewed: Yes Surgical History: angioplasty, hysterectomy, - Lives: Alone Smoking Status: Never smoker Alcohol: None Drugs: None - Family History Maternal Family History: Family History (Last Reviewed 01/13/20 @ 13:[address] Winston Johsnon MD) Grandmother Alcoholism Cancer Arthritis Mother Alcoholism Diabetes blood clots Hypertension Grandfather Heart disease Sister Thyroid disorder Other Breast cancer Cervical cancer Colon cancer Family History: Reports: Diabetes - age 60 Paternal Family History: Family History (Last Reviewed 01/13/20 @ 13:[address] Winston Johnson MD) Grandmother Alcoholism Cancer Arthritis Mother Alcoholism Diabetes blood clots Hypertension Grandfather Heart disease Sister Thyroid disorder Other Breast cancer Cervical cancer Colon cancer Family History: Reports: Unknown Review of Systems General: Reports: Chills, Fever, Malaise, Subjective Musculoskeletal: Reports: Swelling, Extremity Pain. Denies: Myalgias, Arthralgias, Neck pain, Back pain, -, - Skin: Denies: Rash, Wounds Neurological: Denies: Weakness, Parasthesia - Immune to care medical care, Numbness Hematologic: Reports: Easy bruising. Denies: Easy bleeding Physical Exam Vital Signs/Narrative: Vital Signs Temp Pulse Resp BP Pulse Ox 01/13/20 17:29 97 F L 95 16 138/82 H 100 Inital Vital Signs reviewed: Yes General: Well nourished, Well developed, Obese, Acute Distress Head: Normocephalic, Atraumatic Eyes: Perrl, EOMI. Negative for: Pale conjunctiva, Scleral icterus Cardiovascular: Regular rate, Regular rhythm Respiratory: No distress Extremities: No edema, Tenderness - There is medial joint line tenderness., - - Patient able to extend 180 degrees. She has pain when she begins to flex and reaches 160 degrees. The knee is swollen. There is a small effusion. The patella is not ballotable. Frandy's test reveals tenderness medially possible click.. Negative for: Nontender Neurological: Alert, Oriented x3, Cranial nerves II-XII grossly intact, Normal Strength, Normal Sensation. Negative for: Normal Gait Psychological: - - Animated Diagnostic/Tx/Re-eval - Medical Decision Making Orthopedist notes were reviewed. Patient was medicated with IV Toradol, morphine and administered Zofran for nausea. Because she is on antiplatelet medicines with history of diabetes, hypertension and hyperlipidemia we will treat with opiate analgesia. ED Disposition - Plan for ED Patient: Disposition: Home or Assisted Living Diagnosis: Localized osteoarthritis of right knee Prescriptions: Hydrocodone Bitart/Apap 5-325 [Llewellyn 5MG-325MG] 1 tablet PO Q6H PRN PRN 3 Days #10 tablet PRN Reason: Pain Transmission Status: Sent to [facility] Referrals: Kannan Garcia MD [Primary Care Provider] - Parker Pickett DO [STAFF PHYSICIAN] - As soon as possible
[2020-01-13] MEDS: Morphine 4 MG/ML Syringe IV (18:40)
[2020-01-13] MEDS: Ondansetron 4 MG/2 ML Vial IV (18:40)
[2020-01-13] MEDS: Ketorolac 15 MG/ML Vial IV (18:40)
[2020-01-13 18:41] VITALS: RESP 18
== END 2020-01-13 19:17 | disposition home or self-care (01) ==
LOC: ED 18:45
PROVIDERS: Emergency Provider Emergency Medicine; PCP Internal Medicine
DX: M17.11 Unilateral primary osteoarthritis, right knee (principal); I11.0 Hypertensive heart disease with heart failure; I50.32 Chronic diastolic (congestive) heart failure; I25.10 Atherosclerotic heart disease of native coronary artery without angina pectoris; E11.9 Type 2 diabetes mellitus without complications; E78.5 Hyperlipidemia, unspecified; R56.9 Unspecified convulsions; E66.9 Obesity, unspecified; Z79.02 Long term (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 of antithrombotics/antiplatelets; Z79.82 Long term (current) use of aspirin; Z79.899 Other long term (current) drug therapy; Z95.5 Presence of coronary angioplasty implant and graft
CPT/HCPCS: 96374; 96375; 99284; A4216; J2405

== ENCOUNTER → 2020-01-31 12:33 | Outpatient (CLI) | payer MEDICARE, SELFPAY ==
[2018-03-22 11:02] VITALS: BMI 32.7
[2020-01-20 10:55] VITALS: BMI 33.0
--- NOTE | 2020-01-31 12:34 | MRI_ITS ---
STUDY: MRI BRAIN WITH AND WITHOUT CONTRAST REASON FOR EXAM: Female, 69 years old. Epilepsy, sharp pain left occipital TECHNIQUE: Standardized multiplanar fat and water weighted pulse sequences were obtained. IV Dotarem 17ml was administered for the contrast portion of the examination. COMPARISON: CT 01/03/2020 FINDINGS: Normal size of the ventricles and extra-axial spaces for the patient''s age. There are a limited number of small white matter hyperintensities, distributed throughout the deep white matter tracts of the cerebral hemispheres, consistent with mild chronic white matter ischemic changes. Normal bilateral basal ganglia. Normal thalami. There is no extra-axial fluid accumulation. Normal flow voids within the major intracranial circulation suggesting patency by spin echo criteria. Normal venous enhancement. There is no enhancing intra-axial or extra-axial abnormality. Empty sella. Normal tectal plate and pineal gland. Normal midbrain, shauna and medulla. Normal cerebellum. Normal basal cisterns. Normal bilateral temporal bones. Normal bilateral internal auditory canals. No demonstrated orbital abnormality, within the constraints of a routine brain study. Normal visualized paranasal sinuses. Normal calvarium and skull base. Normal visualized soft tissue structures. Normal visualized upper cervical spine. MRI/Brain W/WO Contrast IMPRESSION: No evidence of infarct, hemorrhage, mass, or abnormal enhancement. Empty sella. Mild microangiopathic white matter disease. Electronically Signed: Wilson Guerrero MD at 17:15 EDT Tel , Service support ,
[2020-01-31 13:20] LABS: Valproic Acid (Depakene) Level 75 ug/mL (50-100)
[2020-01-31 13:30] LABS: Ammonia < 10.0 umol/L (11-32)
== END ==
PROVIDERS: PCP Internal Medicine; Referring Provider Psychiatry & Neurology Neurology; Visit Provider Psychiatry & Neurology Neurology
DX: G40.909 Epilepsy, unspecified, not intractable, without status epilepticus (principal); I50.32 Chronic diastolic (congestive) heart failure
CPT/HCPCS: 36415; 70553; 80164; 82140; 84443; A9575

== ENCOUNTER → 2020-03-20 06:14 | Outpatient (CLI) | payer MEDICARE, SELFPAY ==
[2018-03-22 11:02] VITALS: BMI 32.7
[2020-01-17 11:16] VITALS: BMI 33.0
[2020-01-20 10:55] VITALS: BMI 33.0
--- NOTE | 2020-03-20 08:22 | TELEMED_ITS ---
[facility] has confirmed receipt of a request for visit. This document confirms receipt of the order initiating the consult. To find the results of the consultation, please view the patient's reports for the scanned Telemed Consult.
== END ==
PROVIDERS: PCP Internal Medicine; Referring Provider Psychiatry & Neurology Neurology; Visit Provider Psychiatry & Neurology Neurology
DX: G40.909 Epilepsy, unspecified, not intractable, without status epilepticus (principal)
CPT/HCPCS: 95819

== ENCOUNTER → 2020-05-11 20:01 | Outpatient (CLI) | payer MEDICARE, SELFPAY ==
[2018-03-22 11:02] VITALS: BMI 32.7
[2020-03-20 14:44] VITALS: BMI 33.3
== END ==
PROVIDERS: PCP Internal Medicine; Referring Provider Psychiatry & Neurology Neurology; Visit Provider Psychiatry & Neurology Neurology
DX: G47.33 Obstructive sleep apnea (adult) (pediatric) (principal)
CPT/HCPCS: 95811

== ENCOUNTER → 2020-05-21 09:26 | Outpatient (CLI) | payer MEDICARE, SELFPAY ==
[2018-03-22 11:02] VITALS: BMI 32.7
[2020-05-21 08:22] VITALS: BMI 34.9
[2020-05-21 12:52] LABS: Absolute Lymphocyte Count 2.36 X10^3/uL (0.83-4.51); Absolute Neutrophil Count 2.8 X10^3/uL (2.0-7.7); Basophil# 0.01 X10^3/uL; Basophil% 0.2 % (0-1); Eosinophil# 0.11 X10^3/uL; Eosinophils% 1.9 % (0-5); Hemoglobin 12.1 g/dL (12.0-15.0); Lymphocyte # 2.36 X10^3/ul (4.0); Lymphocyte % 41.4 % (19-41); Mean Corp Hgb Conc 31.8 g/dL (32-36); Mean Corpuscular Hgb 30.5 pg (27.0-32.0); Mean Corpuscular Volume 95.7 fL (81-99); Mean Platelet Vol. 11.9 fl (6.2-12.0); Monocyte# 0.42 X10^3/uL; Monocyte% 7.4 % (0-10); NRBC Flagged by Analyzer 0 % (0-5); Neutrophil # 2.79 X10^3/uL (2.7-7.7); Neutrophil % 48.9 % (47-70); Platelet Count 167 K/mm3 (150-450); RBC Distribution Width CV 13.2 % (11.6-14.6); RBC Distribution Width SD 47.1 fl (35.1-43.9); Red Blood Count 3.97 M/mm3 (4.2-5.4); White Blood Count 5.7 K/mm3 (4.4-11.0)
[2020-05-21 13:20] LABS: Microalbumin,Random Urine 10.3 mg/L (NO RANGE EST.); Microalbumin:Creatinine Ratio 4.8 mg/g CRE (<30 mg/g CRE)
[2020-05-21 13:25] LABS: Hemoglobin A1c 7.4 % (3.8-5.6)
[2020-05-21 13:59] LABS: ALB/GLOB Ratio 0.6 RATIO (0.9-2.4); AST(SGOT) 23 U/L (15-37); Alanine Aminotransfer ALT/SGPT 24 U/L (13-56); Alkaline Phosphatase 93 U/L (45-117); Anion Gap 9 (5-15); BUN 20 mg/dL (7-18); BUN/Creat Ratio 21.4 RATIO (10-20); Chloride 109 mmol/L (98-107); Cholesterol 173 mg/dL (200); Creatinine, Serum 0.93 mg/dL (0.55-1.02); EST Glomerular Filtration Rate 64 mL/min (>60); Est Glom Filt Rate - Afr Amer 77 mL/min (>60); Globulin 4.7 g/dL (2.2-4.2); Glucose 101 mg/dL (74-106); High Density Lipoprotein 50 mg/dL; Potassium 4.5 mmol/L (3.5-5.1); Protein, Total 7.7 g/dL (6.4-8.2); Sodium Level 137 mmol/L (136-145); Triglycerides 102 mg/dL; Very Low Density Lipoprotein 20 mg/dL (5-40)
== END ==
PROVIDERS: PCP Internal Medicine; Visit Provider Internal Medicine
DX: E11.9 Type 2 diabetes mellitus without complications (principal); I10 Essential (primary) hypertension; E78.5 Hyperlipidemia, unspecified
CPT/HCPCS: 36415; 80053; 80061; 82043; 82570; 83036; 85025

== ENCOUNTER → 2020-07-12 14:06 | Outpatient (CLI) | payer MEDICARE, SELFPAY ==
[2018-03-22 11:02] VITALS: BMI 32.7
[2020-05-24 08:13] VITALS: BMI 35.4
== END ==
PROVIDERS: PCP Internal Medicine; Visit Provider Nurse Practitioner Acute Care
DX: Z45.89 Encounter for adjustment and management of other implanted devices (principal)

== ENCOUNTER → 2020-07-23 09:17 | Outpatient (CLI) | payer MEDICARE, SELFPAY ==
[2018-03-22 11:02] VITALS: BMI 32.7
[2020-05-24 08:13] VITALS: BMI 35.4
[2020-07-23 10:05] LABS: Ammonia < 10.0 umol/L (11-32)
[2020-07-23 10:11] LABS: Valproic Acid (Depakene) Level 55 ug/mL (50-100)
== END ==
PROVIDERS: PCP Internal Medicine; Referring Provider Nurse Practitioner Family; Visit Provider Nurse Practitioner Family
DX: R56.9 Unspecified convulsions (principal)
CPT/HCPCS: 36415; 80164; 82140

== ENCOUNTER → 2020-10-02 09:53 | Outpatient (CLI) | payer MEDICARE, SELFPAY ==
[2020-09-26 13:14] VITALS: BMI 32.7
[2020-10-02 09:41] VITALS: BMI 35.4
[2020-10-02 13:13] LABS: Valproic Acid (Depakene) Level 91 ug/mL (50-100)
== END ==
PROVIDERS: Nurse Practitioner Family; PCP Internal Medicine; Visit Provider Internal Medicine
DX: G40.909 Epilepsy, unspecified, not intractable, without status epilepticus (principal)
CPT/HCPCS: 36415; 80164

== ENCOUNTER → 2020-10-05 07:30 | Outpatient (CLI) | payer MEDICARE, SELFPAY ==
[2018-03-22 11:02] VITALS: BMI 32.7
[2020-07-26 13:33] VITALS: BMI 33.3
[2020-09-26 13:14] VITALS: BMI 32.7
[2020-10-02 09:41] VITALS: BMI 35.4
--- NOTE | 2020-10-05 07:32 | BI_ITS ---
MAMMOGRAPHY - BILATERAL SCREENING REASON FOR EXAM: Female, 69 years old. Routine annual screening examination. PERTINENT HISTORY: Non-contributory. TECHNIQUE: Digital bilateral breast paul (3D mammographic acquisition) in the CC and MLO projections. 2-D mediolateral oblique (MLO) and craniocaudad (CC) views of both breasts were obtained. CAD: Full Field Digital Mammography with Computer Added Detection was performed. COMPARISON: Comparison is made with prior study dated 06/02/2019. FINDINGS: Breast Composition: The breasts are almost entirely fatty. There are no dominant masses or suspicious calcifications. Stable bilateral calcified breast nodules in keeping with fibroadenomas. Stable small bilateral axillary lymph nodes. No other significant abnormalities are identified. There has been no significant change since the prior study. BI/SCRN MAMM (CAD)W/PAUL BILAT IMPRESSION: Stable bilateral screening mammogram. Yearly follow-up mammogram recommended. (A) ASSESSMENT CATEGORY: BIRADS Category 2: Benign. A letter regarding these results will be sent to the patient by the facility within 30 days. Approximately 10% of breast cancers are not detected by mammography. A normal mammogram should not delay biopsy of a clinically suspicious abnormality. [id number] Electronically Signed: Tor Artis MD at 8:45 EDT , Service support ,
== END ==
PROVIDERS: PCP Internal Medicine; Referring Provider Internal Medicine; Visit Provider Internal Medicine
DX: Z12.31 Encounter for screening mammogram for malignant neoplasm of breast (principal)
CPT/HCPCS: 77063; 77067

== ENCOUNTER 2020-10-08 20:38 | Emergency (ER) | payer MEDICARE, SELFPAY ==
[2020-09-26 13:14] VITALS: BMI 32.7
[2020-10-02 09:41] VITALS: BMI 35.4
[2020-10-08 20:39] VITALS: BP 107/65; PULSE 91; RESP 16; TEMP 36.1; O2SAT 96; BMI 34.7
[2020-10-08 20:40] VITALS: BP 107/65; PULSE 91; RESP 16; TEMP 36.1; O2SAT 96
--- NOTE | 2020-10-08 20:52 | US_ITS ---
STUDY: ABDOMINAL ULTRASOUND - RIGHT UPPER QUADRANT REASON FOR VISIT: Female, 69 years old PAIN-abd TECHNIQUE: Ultrasound evaluation of the right upper quadrant was performed with real-time and static reynoso-scale imaging. TECHNICAL QUALITY: Adequate. COMPARISON: None. FINDINGS: Liver: The liver measures 16.6 cm. There is fatty echogenicity of the liver. The bile ducts are within normal limits. There is hepatic color flow. The direction of portal flow is hepatopetal. There is no demonstrated mass lesion. Gallbladder: Normal distended gallbladder. The gallbladder wall measures 1.4 mm. There is a negative sonographic Dailey''s sign. There is no pericholecystic fluid. There are no gallstones. Common Bile Duct (C.B.D.): The common bile duct measures 3 mm. Pancreas: Normal size of the head, body and tail of the pancreas. There is normal echogenicity of the pancreas. There is no demonstrated pancreatic mass or cyst. Right Kidney: Normal size of the right kidney. The right kidney measures 10.3 x 5.0 x 3.9 cm. Normal renal cortex. The right cortex measures 0.9 cm. There is a 2.2 cm lower pole cystic nodule. There is no right hydronephrosis. US/Gallbladder IMPRESSION: Fatty liver. Slightly complex lower pole right renal cystic nodule. Electronically Signed: Juan Dumnot DO at 23:19 EDT Tel [phone], Service support ,
--- NOTE | 2020-10-08 20:52 | EDS_ITS ---
HPI History of Present Illness Chief Complaint: Abd Pain Informant: patient Narrative Narrative: 69-year-old female presents the emergency department with abdominal pain and nausea. She tells me she has had intermittent symptoms for months. She has not seen anybody for this. Symptoms are progressively gotten worse. She notes that she gets full really quickly. She gets nauseous. she states tonight she tried to eat something and she merely got pain in the right upper quadrant in her epigastrium. She notes nausea. She also developed some diarrhea. She denies any fevers. She noted that her blood sugar was up to 211. She is a known diabetic type II. She is on Plavix for coronary artery disease with stent placement [facility] Medical History (Updated 10/09/20 @ 00:[address] Mikey Garcia DO) Atherosclerotic heart disease of [place] coronary artery without angina pectoris Chronic diastolic CHF (congestive heart failure) Colon cancer screening Congestive heart failure (CHF) Conversion disorder Diabetes mellitus type 2 in nonobese Diabetes type 2, controlled Essential (primary) hypertension Foreign body in stomach Hives Hyperlipidemia Non-toxic goiter Obesity Obstructive sleep apnea Rheumatoid arthritis RIGHT FOOT HEEL SPUR Routine health maintenance Seasonal allergies Seizure disorder Seizures Type 2 diabetes mellitus Urinary frequency Home Medications multivitamin 1 tab PO DAILY 05/20/19 [History Last Taken 11/18/19 21:00] hydroxychloroquine 200 mg PO BIDCM 11/20/19 [History Last Taken Unknown] blood-glucose meter #1 ea 02/03/20 [Rx Last Taken Unknown] blood sugar diagnostic #50 ea 02/07/20 [Rx Last Taken Unknown] sitagliptin 100 mg tablet 100 mg PO DAILY #90 tab 03/28/20 [Rx Last Taken Unknown] calcium citrate 200 mg (950 mg) tablet 200 mg PO BID 05/21/20 [History Last Taken Unknown] atorvastatin 80 mg tablet 80 mg PO QHS #90 tab 06/08/20 [Rx Last Taken Unknown] carvedilol 12.5 mg tablet 12.5 mg PO BID #180 tab 06/08/20 [Rx Last Taken Unknown] clopidogrel 75 mg tablet 75 mg PO DAILY #90 tab 06/08/20 [Rx Last Taken Unknown] isosorbide mononitrate 30 mg tablet,extended release 24 hr 30 mg PO DAILY #90 tab 06/08/20 [Rx Last Taken Unknown] losartan 50 mg tablet 50 mg PO BID #180 tab 06/08/20 [Rx Last Taken Unknown] disability placard #1 ea 06/27/20 [Rx Last Taken Unknown] glimepiride 2 mg tablet 2 mg PO QAM #30 tab 07/17/20 [Rx Last Taken Unknown] aspirin 81 mg tablet,delayed release 81 mg PO DAILY 08/13/20 [History Last Taken Unknown] lansoprazole 30 mg capsule,delayed release 30 mg PO DAILY #60 cap 08/20/20 [Rx Last Taken Unknown] divalproex 250 mg tablet,extended release 24 hr 250 mg PO BID #60 tab 09/20/20 [Rx Last Taken Unknown] divalproex 500 mg tablet,extended release 24 hr 500 mg PO BID #60 tab 09/20/20 [Rx Last Taken Unknown] metoclopramide HCl [Reglan] 5 mg PO Q6H #56 tab 10/09/20 [Rx Last Taken Unknown] Allergy/AdvReac Type Severity Reaction Status Date / Time prednisone AdvReac Nausea Verified 10/08/20 20:41 Family History Grandmother Alcoholism Cancer Arthritis Mother Alcoholism Diabetes blood clots Hypertension Grandfather Heart disease Sister Thyroid disorder Other Breast cancer Cervical cancer Colon cancer Surgical History H/O: hysterectomy History of carpal tunnel surgery History of section History of coronary artery stent placement (03/22/18) History of left heart catheterization (09/20/18) Social History Smoking Status: Never smoker second hand exposure: No alcohol intake: current alcohol intake frequency: holidays/special occasions only substance use type: does not use what type of physical activity do you participate in: none ROS ROS ED Constitutional Constitutional ED: Denies chills or weight loss Eyes Eyes: Denies change in vision or diplopia ENT ENT ED: Denies ear pain, rhinorrhea or sore throat Cardiovascular Cardiovascular: Denies chest pain, orthopnea, palpitations or racing heartbeat Respiratory/Chest Respiratory/Chest: Denies cough, dyspnea or orthopnea Gastrointestinal Gastrointestinal: Reports abdominal pain, diarrhea and nausea; Denies vomiting Genitourinary Genitourinary ED: Denies dysuria, hematuria or urinary frequency Musculoskeletal Musculoskeletal: Denies arthralgias or myalgias Integumentary Denies abscess or rash Neurologic Neurologic: Denies headache(s) or weakness Psychiatric Psychiatric: Denies anxiety, depression, suicidal ideation or suicidal thoughts Endocrine Endocrinology: Denies polydipsia, polyphagia or polyuria Allergic/Immunologic Allergic/Immunologic ED: Denies mouth swelling, tongue swelling or urticaria EXAM Physical Exam Const Vital Signs: 10/08/20 20:39 10/08/20 20:40 10/08/20 22:06 Temperature 97 F L 97 F L 98.2 F Temperature Source Temporal Temporal Temporal Pulse Rate 91 91 75 Respiratory Rate 16 16 16 Blood Pressure 107/65 107/65 102/58 L Blood Pressure Mean 79 79 72 Pulse Ox 96 96 Oxygen Delivery Method Room Air Room Air 10/08/20 23:14 Temperature 98.1 F Temperature Source Temporal Pulse Rate 73 Respiratory Rate 16 Blood Pressure 110/63 Blood Pressure Mean 78 Pulse Ox Oxygen Delivery Method Positive well nourished and well developed General Appearance ED: well developed HEENT Reports normocephalic, head/scalp atraumatic and moist mucous membranes Eyes PERRL and EOMs intact bilaterally Neck no lymphadenopathy, supple and no JVD Resp normal respiratory effort and clear to auscultation bilaterally Cardio regular rate, regular rhythm and no murmurs GI Palpation: soft, tender epigastric and RUQ and guarding Back/Spine no CVA tenderness and normal ROM Extremity normal to inspection General Extremety ED: Negative for edema General Extremity: Negative for edema Neuro oriented x3 and CN's II-XII intact bilaterally Sensorium / Orientation: alert Motor Exam: strength 5/5 throughout Psych mental status grossly normal Mood & Affect: Negative for depressed or tearful Skin no rashes or lesions noted and no wounds MDM MDM MDM Narrative Medical decision making narrative: Basic blood work was negative. Noted hemoglobin 12.7. Creatinine 1.07 and glucose of 110. Gallbladder ultrasound showed fatty liver and a slightly complex lower pole right renal cystic nodule. Otherwise gallbladder negative. Therefore CT of the abdomen pelvis was ordered. This was read as negative. Patient has early satiety. She has nausea and epigastric discomfort for months that is worsening with eating. This could be diabetic gastroparesis as she has not had anything to eat for 6 hours yet her stomach is full. Placed her on Reglan and asked that she follow-up with her doctor for possible gastric emptying study. She may also benefit from EGD. Patient is comfortable with this plan. Lab Data Attestation: I reviewed the patient's lab results. Labs: Laboratory Results - last 24 hr 10/08/20 10/08/20 21:00 21:00 WBC 5.7 RBC 3.47 L Hgb 10.7 L Hct 33.2 L MCV 95.7 MCH 30.8 MCHC 32.2 RDW Std Deviation 47.8 H RDW Coeff of [place] 13.6 Plt Count 195 MPV 10.8 Immature Gran % (Auto) 0.500 Neut % (Auto) 47.6 Lymph % (Auto) 41.7 H [place] % (Auto) 7.9 Eos % (Auto) 1.9 Baso % (Auto) 0.4 Absolute Neuts (auto) 2.7 Absolute Lymphs (auto) 2.37 Nucleated RBC % 0 Sodium 144 Potassium 4.1 Chloride 110 H Carbon Dioxide 28.0 Anion Gap 6 BUN 22 H Creatinine 1.07 H Estim Creat Clear Calc 40.35 Est GFR (MDRD) Af Amer 66 Est GFR (MDRD) Non-Af 54 L BUN/Creatinine Ratio 20.6 H Glucose 110 H Calcium 8.9 Total Bilirubin 0.30 AST 12 L ALT 21 Alkaline Phosphatase 102 Total Protein 6.6 Albumin 3.0 L Globulin 3.6 Albumin/Globulin Ratio 0.8 L Lipase 110 Radiography Diagnostic Testing: Radiology Impression Gallbladder Ultrasound 10/08/20 20:52 IMPRESSION: Fatty liver. Slightly complex lower pole right renal cystic nodule. Electronically Signed: Juan Dumont DO at 23:19 EDT Tel [phone], Service support , Discharge Plan Triage Chief Complaint: Abd Pain ED Provider: Mikey Garcia Dx/Rx/DC Orders Clinical Impression: Abdominal pain, acute, Diabetes type 2, controlled Instructions: ED Diabetic Gastroparesis Prescriptions: New metoclopramide HCl [Reglan] 5 mg tablet 5 mg PO Q6H Qty: 56 RF: 0 No Action multivitamin Tablet 1 tab PO DAILY RF: 0 calcium citrate 200 mg (950 mg) tablet 200 mg PO BID RF: 0 aspirin [Adult Low Dose Aspirin] 81 mg tablet,delayed release (DR/EC) 81 mg PO DAILY RF: 0 hydroxychloroquine 200 MG tablet 200 mg PO BIDCM RF: 0 (DME) blood-glucose meter [True Metrix Air Glucose Meter] Kit See Rx Instructions .ROUTE .MEDSUPPLY Qty: 1 RF: 0 (DME) True Metrix Glucose Test Strip Strip See Rx Instructions .ROUTE .MEDSUPPLY Qty: 50 RF: 3 sitagliptin 100 mg tablet 100 mg PO DAILY Qty: 90 RF: 3 carvedilol 12.5 mg tablet 12.5 mg PO BID Qty: 180 RF: 3 losartan 50 mg tablet 50 mg PO BID Qty: 180 RF: 3 clopidogrel 75 mg tablet 75 mg PO DAILY Qty: 90 RF: 3 atorvastatin 80 mg tablet 80 mg PO QHS Qty: 90 RF: 3 isosorbide mononitrate 30 mg tablet extended release 24 hr 30 mg PO DAILY Qty: 90 RF: 3 (DME) disability placard See Rx Instructions .ROUTE .MEDSUPPLY Qty: 1 RF: 0 glimepiride 2 mg tablet 2 mg PO QAM Qty: 30 RF: 1 lansoprazole 30 mg capsule,delayed release(DR/EC) 30 mg PO DAILY Qty: 60 RF: 1 divalproex 500 mg tablet extended release 24 hr 500 mg PO BID Qty: 60 RF: 1 divalproex 250 mg tablet extended release 24 hr 250 mg PO BID Qty: 60 RF: 1 Primary Care Provider: Kannan Garcia Referrals: Kannan Garcia MD [Primary Care Provider] - As soon as possible Disposition Disposition: Home, self care
[2020-10-08] MEDS: 0.9% Normal Saline 1,000 ML 250 ML IV (20:58)
[2020-10-08] MEDS: Morphine 4 MG/ML Syringe IV ×2 (20:59→23:41)
[2020-10-08] MEDS: Ondansetron 4 MG/2 ML Vial IV (20:59)
[2020-10-08 21:16] LABS: Absolute Lymphocyte Count 2.37 X10^3/uL (0.83-4.51); Absolute Neutrophil Count 2.7 X10^3/uL (2.0-7.7); Basophil# 0.02 X10^3/uL; Basophil% 0.4 % (0-1); Eosinophil# 0.11 X10^3/uL; Eosinophils% 1.9 % (0-5); Hematocrit 33.2 % (37-47); Hemoglobin 10.7 g/dL (12.0-15.0); Lymphocyte # 2.37 X10^3/ul (0.83-4.51); Lymphocyte % 41.7 % (19-41); Mean Corp Hgb Conc 32.2 g/dL (32-36); Mean Corpuscular Hgb 30.8 pg (27.0-32.0); Mean Corpuscular Volume 95.7 fL (81-99); Mean Platelet Vol. 10.8 fl (6.2-12.0); Monocyte# 0.45 X10^3/uL; Monocyte% 7.9 % (0-10); NRBC Flagged by Analyzer 0 % (0-5); Neutrophil # 2.71 X10^3/uL (2.7-7.7); Neutrophil % 47.6 % (47-70); Platelet Count 195 K/mm3 (150-450); RBC Distribution Width CV 13.6 % (11.6-14.6); RBC Distribution Width SD 47.8 fl (35.1-43.9); Red Blood Count 3.47 M/mm3 (4.2-5.4); White Blood Count 5.7 K/mm3 (4.4-11.0)
[2020-10-08 21:38] LABS: ALB/GLOB Ratio 0.8 RATIO (0.9-2.4); AST(SGOT) 12 U/L (15-37); Alanine Aminotransfer ALT/SGPT 21 U/L (13-56); Alkaline Phosphatase 102 U/L (45-117); Anion Gap 6 (5-15); BUN 22 mg/dL (7-18); BUN/Creat Ratio 20.6 RATIO (10-20); Calcium,Total 8.9 mg/dL (8.5-10.1); Chloride 110 mmol/L (98-107); Creatinine, Serum 1.07 mg/dL (0.55-1.02); EST Glomerular Filtration Rate 54 mL/min (>60); Est Glom Filt Rate - Afr Amer 66 mL/min (>60); Estimated Creatinine Clearance 40.35 ml/min; Globulin 3.6 g/dL (2.2-4.2); Glucose 110 mg/dL (74-106); Lipase 110 U/L (73-393); Potassium 4.1 mmol/L (3.5-5.1); Protein, Total 6.6 g/dL (6.4-8.2); Sodium Level 144 mmol/L (136-145)
[2020-10-08 22:06] VITALS: BP 102/58; PULSE 75; RESP 16; TEMP 36.8
--- NOTE | 2020-10-08 23:01 | CT_ITS ---
STUDY: CT ABDOMEN AND PELVIS WITH CONTRAST REASON FOR EXAM: Female, 69 years old. abdominal pain RADIATION DOSAGE (If Supplied By Facility): CTDIvol = ( 12.08 ) mGy, DLP = ( 982.72 ) mGycm TECHNIQUE: Transaxial images were obtained from the dome of the diaphragm to the symphysis pubis without oral contrast. IV 100mL Isovue-300 was administered. Sagittal and coronal images were reconstructed. Individualized dose optimization techniques were used for this CT. COMPARISON: None. FINDINGS: The visualized lung bases are unremarkable. The visualized portions of the heart are within normal limits. Normal liver. Normal gallbladder and extrahepatic biliary system. Normal spleen. Normal pancreas. Normal bilateral adrenal glands. Normal right kidney. Normal left kidney. Nonenhancing right renal cyst Mild wall thickening of the fundus of the stomach. Otherwise, unremarkable stomach. Normal small intestine. Normal colon. The appendix is visualized and appears normal. Normal abdominal aorta. Normal inferior vena cava. Normal retroperitoneum. Normal urinary bladder. There is absence of the uterus consistent with a prior hysterectomy. Normal abdominal wall. Normal osseous structures. CT/Abdomen/Pelvis W IV Cont ONLY IMPRESSION: No acute findings. Possible stomach wall thickening. Consider endoscopy. Unremarkable appendix. Nonenhancing right renal cyst. Electronically Signed: Ariel Varner DO at 0:36 EDT Tel , Service support ,
[2020-10-08 23:14] VITALS: BP 110/63; PULSE 73; RESP 16; TEMP 36.7
[2020-10-09 00:48] VITALS: BP 113/65; PULSE 72; RESP 16
== END 2020-10-09 00:48 | disposition home or self-care (01) ==
PROVIDERS: Emergency Provider Emergency Medicine; PCP Internal Medicine
DX: R10.9 Unspecified abdominal pain (principal); R11.0 Nausea; R19.7 Diarrhea, unspecified; I11.0 Hypertensive heart disease with heart failure; I50.32 Chronic diastolic (congestive) heart failure; G40.909 Epilepsy, unspecified, not intractable, without status epilepticus; I25.10 Atherosclerotic heart disease of native coronary artery without angina pectoris; E11.9 Type 2 diabetes mellitus without complications; M06.9 Rheumatoid arthritis, unspecified; E04.9 Nontoxic goiter, unspecified; E78.5 Hyperlipidemia, unspecified; G47.33 Obstructive sleep apnea (adult) (pediatric); E66.9 Obesity, unspecified; Z79.02 Long term (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 of antithrombotics/antiplatelets; Z79.82 Long term (current) use of aspirin; Z79.84 Long term (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 of oral hypoglycemic drugs; Z79.899 Other long term (current) drug therapy; Z95.5 Presence of coronary angioplasty implant and graft
CPT/HCPCS: 74177; 76705; 80053; 83690; 85025; 96361; 96374; 96375; 96376; 99283; J7030; Q9967; A4216; J2405

== ENCOUNTER → 2020-11-12 09:18 | Outpatient (CLI) | payer MEDICARE, SELFPAY ==
[2020-09-26 13:14] VITALS: BMI 32.7
[2020-11-12 08:34] VITALS: BMI 34.6
[2020-11-12 12:50] LABS: Absolute Lymphocyte Count 1.66 X10^3/uL (0.83-4.51); Absolute Neutrophil Count 2.4 X10^3/uL (2.0-7.7); Basophil# 0.02 X10^3/uL; Basophil% 0.4 % (0-1); Eosinophils% 2.2 % (0-5); Hematocrit 37.1 % (37-47); Hemoglobin 11.8 g/dL (12.0-15.0); Lymphocyte # 1.66 X10^3/ul (0.83-4.51); Lymphocyte % 36.3 % (19-41); Mean Corp Hgb Conc 31.8 g/dL (32-36); Mean Corpuscular Hgb 30.9 pg (27.0-32.0); Mean Corpuscular Volume 97.1 fL (81-99); Mean Platelet Vol. 11.2 fl (6.2-12.0); Monocyte# 0.36 X10^3/uL; Monocyte% 7.9 % (0-10); NRBC Flagged by Analyzer 0 % (0-5); Neutrophil # 2.41 X10^3/uL (2.7-7.7); Neutrophil % 52.8 % (47-70); Platelet Count 211 K/mm3 (150-450); RBC Distribution Width CV 13.7 % (11.6-14.6); RBC Distribution Width SD 49.1 fl (35.1-43.9); Red Blood Count 3.82 M/mm3 (4.2-5.4); White Blood Count 4.6 K/mm3 (4.4-11.0)
[2020-11-12 13:39] LABS: Anion Gap 8 (5-15); BUN 25 mg/dL (7-18); BUN/Creat Ratio 24.8 RATIO (10-20); Calcium,Total 8.8 mg/dL (8.5-10.1); Chloride 105 mmol/L (98-107); Creatinine, Serum 1.01 mg/dL (0.55-1.02); EST Glomerular Filtration Rate 58 mL/min (>60); Est Glom Filt Rate - Afr Amer 70 mL/min (>60); Glucose 175 mg/dL (74-106); Potassium 4.5 mmol/L (3.5-5.1); Sodium Level 140 mmol/L (136-145)
[2020-11-12 13:50] LABS: Valproic Acid (Depakene) Level 7 ug/mL (50-100)
== END ==
PROVIDERS: Nurse Practitioner Family; PCP Internal Medicine; Referring Provider Internal Medicine; Visit Provider Internal Medicine
DX: E11.9 Type 2 diabetes mellitus without complications (principal); I10 Essential (primary) hypertension; G40.909 Epilepsy, unspecified, not intractable, without status epilepticus; G47.33 Obstructive sleep apnea (adult) (pediatric)
CPT/HCPCS: 36415; 80048; 80164; 85025

== ENCOUNTER 2021-02-06 05:52 | Day surgery (SDC) | payer MEDICARE, SELFPAY ==
[2020-12-31 12:33] VITALS: BMI 32.7
--- NOTE | 2021-02-06 | COLBX_PTH ---
PATIENT: LACY ALVARADO LOC: EN U#:[id number] AGE/SX: 70/F ROOM: RE02/06/[address]: Dr. Vadim Mckinney DO : 1950 BED: DIS: 02/06/2021 SPEC #: [id number] RECD: 02/06/21 10:49 STATUS: SANJANA CARLOS #: [id number] LARA: 02/06/21 00:[address]: Vadim Mckinney DEPT: SURGICAL PATHOLOGY RECD BY: Vance Umaña ENTERED: 02/06/21 10:49 SP TYPE: COLON BX OTHR DR: Dr. Kannan Garcia MD Tissues: A - Esophageal mucous membrane B - COLON BIOPSY C - Cecum, NOS D - Transverse colon Procedures: Special Stain Group II Surgery Specimen Level IV Alcian Blue/PAS (control) HEADER OPERATION: Colonoscopy, EGD ([facility] [place]) PRE-OP DIAGNOSIS: Abdominal pain, screening for colon TISSUE SUBMITTED: A ? Distal esophagus biopsy, B ? Biopsy of hepatic flexure polyp, C ? Biopsy of cecal colitis, D ? Biopsy of transverse colon polyp MICROSCOPIC DIAGNOSIS A. Distal esophagus, biopsy: Gastroesophageal junctional mucosa with mild chronic inflammation. No evidence of goblet cell metaplasia. Focal changes of reflux. See comment. B. Colonic polyp at hepatic flexure, biopsy: Tubular adenoma. C. Cecum, biopsy: No significant pathologic change. See comment. D. Transverse colon polyp, biopsy: Fragments of tubular adenoma. AM:leila 02/07/2021 COMMENT A. Alcian blue/PAS stain with matched control supports the above diagnosis. C. Eosinophils are mildly increased in the mucosa. The significance of this is unclear. Clinical correlation is suggested. MICROSCOPIC DESCRIPTION Slides are reviewed. GROSS DESCRIPTION A - Received in fixative is one container labeled with the patient's name and designated distal esophagus biopsy. The specimen consists of two irregular fragments of light bearden soft tissue that in aggregate measure 0.6 x 0.3 x 0.1 cm. The specimen is totally submitted in one cassette. B - Received in fixative is one container labeled with the patient's name and designated biopsy of hepatic flexure polyp. The specimen consists of one irregular fragment of light bearden soft tissue that measures 0.3 x 0.2 x 0.1 cm. The specimen is totally submitted in one cassette. C - Received in fixative is one container labeled with the patient's name and designated biopsy of cecal colitis. The specimen consists of two irregular fragments of light bearden soft tissue that in aggregate measure 0.6 x 0.2 x 0.1 cm. The specimen is totally submitted in one cassette. D - Received in fixative is one container labeled with the patient's name and designated biopsy of transverse colon polyp. The specimen consists of multiple irregular fragments of light bearden soft tissue that in aggregate measure 1 x 0.2 x 0.1 cm. The specimen is totally submitted in one cassette. / SJ:rg 02/06/21 TC:3 CPT: 16320 x4, 92104
[2021-02-06 06:35] VITALS: BP 104/58; PULSE 83; RESP 18; TEMP 36.2; O2SAT 100; BMI 30.9
[2021-02-06] MEDS: Lactated Ringers 1,000 ML 100 ML IV (06:41)
--- NOTE | 2021-02-06 07:08 | HP.PCM_ITS ---
History and Physical Date of Admission: 02/06/21 [facility] [id number] [place] [address] OFFICE VISITDate of Service: 01/17/21 MR#:[id number]:[id number]: LACY ALVARADO LRep #:[id number] Provider:Vadim Mckinney DOAge/Sex: 70/F [facility]BGIStatus:Signed Intake Vital Signs 01/17/21 14:56 Height 5 ft 2 in Weight: 190 lb 4 oz BMI 34.7 Intake Visit Reasons: SCREENING FOR MALIGNANT NEOPLASM OF COLON Chief Complaint: Stomach issues and weight gain. Is patient in pain?: Yes (Chronic R knee pain) Allergies prednisone Adverse Reaction (Verified 01/17/21 15:44) Nausea Is last menstrual period known: No Post menopausal: Yes Patient : No Nurse's Note: ED visit October of this year because of stomach pain. ED administered pain medication. Left with concerns that stool had backed up into stomach. She increased fiber and prune juice intake. BM may be 2-3 days apart and some days will be 2-3 times a day. Does have to strain sometimes with constipation. Complaints of nausea occurring daily and in relation to food. Is diabetic and has hypoglycemia without food. Reports last A1C as 7.5. Having difficulty with losing weight. Needs to lose 40lbs to have R knee replacement. [facility] Medical History (Updated 01/17/21 @ 16:[address] Vadim Mckinney DO) Abdominal pain Atherosclerotic heart disease of [place] coronary artery without angina pectoris Chronic diastolic CHF (congestive heart failure) Colon cancer screening Congestive heart failure (CHF) Conversion disorder Diabetes mellitus type 2 in nonobese Diabetes type 2, controlled Essential (primary) hypertension Foreign body in stomach Hives Hyperlipidemia Non-toxic goiter Obesity Obstructive sleep apnea Osteoarthritis Rheumatoid arthritis RIGHT FOOT HEEL SPUR Routine health maintenance Seasonal allergies Seizure disorder Seizures Type 2 diabetes mellitus Urinary frequency Surgical History H/O: hysterectomy History of carpal tunnel surgery History of section History of coronary artery stent placement (03/22/18) History of left heart catheterization (09/20/18) Family History Grandmother Alcoholism Cancer Arthritis Mother Alcoholism Diabetes blood clots Hypertension Grandfather Heart disease Sister Thyroid disorder Other Breast cancer Cervical cancer Colon cancer Social History Smoking Status: Never smoker second hand exposure: No alcohol intake: current alcohol intake frequency: holidays/special occasions only substance use type: does not use what type of physical activity do you participate in: none HPI HPI Chief Complaint: Stomach issues and weight gain. Details: LACY ALVARADO, is a 70 F who presents to the office today for further evaluation of worsening abdominal pain. She presented to the emergency department with abdominal pain and nausea. She tells me she has had intermittent symptoms for months. She has not seen anybody for this. Symptoms are progressively gotten worse. She notes that she gets full really quickly. She gets nauseous. she states tonight she tried to eat something and she merely got pain in the right upper quadrant in her epigastrium. She notes nausea. She also developed some diarrhea. She denies any fevers. She noted that her blood sugar was up to 211. She is a known diabetic type II. She is on Plavix for coronary artery disease with stent placement. On her biochemical work-up she was discovered to have a mild anemia. She does take an aspirin on a daily basis due to the fact that she has diabetes and a history of coronary artery disease status post PTCA with stent. She also carries a history of seizure disorder. She says that her seizure disorder is under control. However she misses her medicines for more than a day she will develop problems with her seizures. She has never had a colonoscopy. She does have some problems with constipation. She denies any blood in her stool. She denies any chest pain or shortness of breath. ROS Const Constitutional: Positive for weight change Eyes Eyes: No change in vision ENT ENT: No abnormal hearing, difficulty swallowing, mouth lesions, tongue swelling or throat swelling Resp Respiratory: Positive for shortness of breath sob: SOB at rest Cardio Cardiology: No chest pain at rest, chest pain with exertion, shortness of breath or dyspnea on exertion Gastro GI: Positive for bloating, constipation, diarrhea and nausea/dyspepsia; No difficulty swallowing Genitourinary-Female: Positive for urinary urgency Musc Musculoskeletal: Positive for numbness, Arthritis and sciatica Skin Skin: No hair loss in leg, yellowing of the eye, itchy eyes, rash, skin ulcer or skin swelling Neuro Neurology: Positive for numbness and seizures; No abnormal hearing, confusion or memory loss Psych Psychiatric: No anxiety, No confusion and No memory loss Endo Endocrine: Positive for weight change Aller/Imm Allergy/Immunologic: No itchy eyes, throat swelling or tongue swelling True/Lymp Hematologic/Lymphatic: No easy bleeding, easy bruising or enlarged lymph nodes Exam Const General: cooperative and comfortable Nutritional Appearance: average body habitus and well nourished [facility] Head: normal to inspection Ears: hearing grossly normal bilaterally Nose: external nose normal Face and sinus: normal facial exam Mouth: oral mucosae normal Throat: posterior oropharynx normal Eyes General: appearance normal, both eyes and all related structures Neck Neck: normal visual inspection Chest Chest palpation & inspection: normal inspection of the chest and normal palpation of entire chest wall Resp Effort & Inspection: normal respiratory effort Auscultation: Bilateral: Clear to Auscultation Cardio Palpation: normal PMI Rate: regular rate Rhythm: regular rhythm GI Inspection: normal to inspection Auscultation: normal bowel sounds Percussion: normal to percussion Palpation: no hepatosplenomegaly Skin General: no rashes or lesions noted Neuro General: patient alert Extrem General: normal to inspection Psych Affect: normal affect Quality Reporting Tobacco Screening ([facility] 138) Smoking Status: Never smoker Assessment and Plan Assessment and Plan (1) Encounter for screening colonoscopy: Status: Acute Plan - Dr. Fierro Friend, DO: She has never had a colonoscopy in the past. She will undergo colonoscopy for evaluation of her colon and screening for colon polyps and colon cancer. She was explained alternatives, risk, benefits including not withstanding bleeding, infection, sepsis, perforation, need for emergency or . She will have an ASA of 3. (2) Abdominal pain: Status: Acute Plan - Dr. Fierro Friend, DO: Thus CT scan abdomen pelvis did show some inflation of the stomach possibly secondary to gastric ulcer this could be creating a gastric outlet scenario. She could also have gastroparesis. We will evaluate her stomach with upper endoscopy. At that time further recommendations will follow. Plan Details Other Medications: New: peg 3350-electrolytes 236-22.74-6.74 -5.86 gram (Golytely) until fecal effluent is clear 240 mL PO Q10M 4,000 mL 0RF metoclopramide HCl (Reglan) take one tab 30 minutes prior to colonoscopy 10 mg PO QAC 1 TAB 0RF bisacodyl (Bisa-Lax (bisacodyl)) take 4 tabs 30 minutes prior to colonscopy 5 mg PO QHS 2 days 2 tabs 0RF MDD 4 This is an needed H&P from when the patient was seen in office. Nothing is mayra nged since she was seen in office.
[2021-02-06 07:30] LABS: Bedside Glucose 149 mg/dL (70-110)
[2021-02-06 07:45] VITALS: BP 101/41; BP 104/58; PULSE 82; RESP 16; TEMP 36; O2SAT 98
--- NOTE | 2021-02-06 07:49 | OP.EGD_ITS ---
Patient Name: Nery Clark Procedure Date: 02/06/2021 6:54 AM Date of : 1950 Age: 70 Procedure: Upper GI endoscopy Indications: Epigastric abdominal pain Providers: Vadim Mckinney DO Referring MD: Kannan Garcia MD Medicines: Monitored Anesthesia Care Patient Profile: This is a 70 year old female. Refer to note in patient chart for documentation of history and physical. Patient has symptoms of acute abdominal distention and acute epigastric abdominal pain. The symptoms first began December. She is status post non-endoscopic tube procedure. Complications: No immediate complications. Procedure: Pre-Anesthesia Assessment: - Prior to the procedure, a History and Physical was performed, and patient medications and allergies were reviewed. The risks and benefits of the procedure and the sedation options and risks were discussed with the patient. All questions were answered and informed consent was obtained. Patient identification and proposed procedure were verified by the physician in the pre-procedure area. Mental Status Examination: alert and oriented. Airway Examination: normal oropharyngeal airway and neck mobility. Respiratory Examination: clear to auscultation. CV Examination: normal. Prophylactic Antibiotics: The patient does not require prophylactic antibiotics. Prior Anticoagulants: The patient has taken no previous anticoagulant or antiplatelet agents. ASA Grade Assessment: II - A patient with mild systemic disease. After reviewing the risks and benefits, the patient was deemed in satisfactory condition to undergo the procedure. The anesthesia plan was to use moderate sedation / analgesia (conscious sedation). Immediately prior to administration of medications, the patient was re-assessed for adequacy to receive sedatives. The heart rate, respiratory rate, oxygen saturations, blood pressure, adequacy of pulmonary ventilation, and response to care were monitored throughout the procedure. The physical status of the patient was re-assessed after the procedure. After obtaining informed consent, the endoscope was passed under direct vision. Throughout the procedure, the patient's blood pressure, pulse, and oxygen saturations were monitored continuously. The Endoscope was introduced through the mouth, and advanced to the second part of duodenum. The upper GI endoscopy was accomplished without difficulty. The patient tolerated the procedure well. Moderate Sedation: Moderate (conscious) sedation was administered by the endoscopy nurse and supervised by the endoscopist. The patient's oxygen saturation, heart rate, blood pressure and response to care were monitored. Scope In: 7:15:51 AM Scope Out: 7:20:07 AM Total Procedure Duration Time 0 hours 4 minutes 16 seconds Findings: LA Grade A (one or more mucosal breaks less than 5 mm, not extending between tops of 2 mucosal folds) esophagitis with no bleeding was found. Biopsies were taken with a cold forceps for histology. Verification of patient identification for the specimen was done. Estimated blood loss was minimal. No other significant abnormalities were identified in a careful examination of the stomach. The exam of the duodenum was otherwise normal. Impression: - LA Grade A reflux esophagitis. Biopsied. Recommendation: - Discharge patient to home. - Resume previous diet. - Repeat upper endoscopy in 1 year for surveillance based on pathology results. - Return to GI office in 2 weeks. - Continue present medications. Procedure Code(s): --- Professional --- 40932, Esophagogastroduodenoscopy, flexible, transoral; with biopsy, single or multiple CPT copyright 2017 [employer]. All rights reserved. The codes documented in this report are preliminary and upon microstrategy bi developer review may be revised to meet current compliance requirements. Vadim Mckinney DO 02/06/2021 7:49:18 AM This report has been signed electronically. Number of Addenda: 1 Note Initiated On: 02/06/2021 6:54 AM Addendum Number: 1 Addendum Date: 01/02/2022 4:19:04 PM MAC was used instead of moderate sedation for this patient. Vadim Mckinney DO 01/02/2022 4:19:11 PM This report has been signed electronically.
[2021-02-06 07:50] VITALS: BP 104/58; BP 106/57; PULSE 86; RESP 16; O2SAT 98
--- NOTE | 2021-02-06 07:50 | OP.CCLET_ITS ---
01/02/2022 Kannan Garcia MD [address] [place] [address] [place] [address] Re : Upper GI endoscopy procedure for Nery Clark Dear Dr. Garcia This procedure was performed on Saturday, February 06, 2021. My impressions and recommendations are as follows: Impressions : - LA Grade A reflux esophagitis. Biopsied. Recommendations : - Discharge patient to home. - Resume previous diet. - Repeat upper endoscopy in 1 year for surveillance based on pathology results. - Return to GI office in 2 weeks. - Continue present medications. My findings are described in the full procedure note, which is enclosed. If I can be of further assistance, please feel free to contact me at . Sincerely, Vadim Mckinney, 02/06/2021 7:49:18 AM This report has been signed electronically.
[2021-02-06 07:55] VITALS: BP 104/58; BP 109/59; PULSE 77; RESP 16; O2SAT 98
--- NOTE | 2021-02-06 07:58 | OP.CCLET_ITS ---
01/02/2022 Kannan Garcia MD [address] [place] [address] [place] [address] Re : Colonoscopy procedure for Nery Clark Dear Dr. Garcia This procedure was performed on Saturday, February 06, 2021. My impressions and recommendations are as follows: Impressions : - Two 5 mm polyps in the sigmoid colon and at the hepatic flexure, removed with a jumbo cold forceps. Resected and retrieved. - Congested mucosa in the cecum. Biopsied. - The examination was otherwise normal on direct and retroflexion views. Recommendations : - Discharge patient to home. - Resume previous diet today. - Continue present medications. - Await pathology results. - Repeat colonoscopy in 5 years for surveillance based on pathology results. - Return to GI office in 2 weeks. My findings are described in the full procedure note, which is enclosed. If I can be of further assistance, please feel free to contact me at . Sincerely, Vadim Mckinney, 02/06/2021 7:58:22 AM This report has been signed electronically.
--- NOTE | 2021-02-06 07:58 | OP.COLON_ITS ---
Patient Name: Nery Clark Procedure Date: 02/06/2021 7:21 AM Date of : 1950 Age: 70 Procedure: Colonoscopy Indications: Screening for colorectal malignant neoplasm Providers: Vadim Mckinney DO Referring MD: Kannan Garcia MD Medicines: Monitored Anesthesia Care Patient Profile: This is a 70 year old female. Refer to note in patient chart for documentation of history and physical. Patient has symptoms of acute abdominal distention and acute epigastric abdominal pain. The symptoms first began December. She is status post non-endoscopic tube procedure. She has never had a colonoscopy. This is her screening colonoscopy. Last Colonoscopy: none. The patient's first colonoscopy is today. Complications: No immediate complications. Procedure: Pre-Anesthesia Assessment: - Prior to the procedure, a History and Physical was performed, and patient medications and allergies were reviewed. The risks and benefits of the procedure and the sedation options and risks were discussed with the patient. All questions were answered and informed consent was obtained. Patient identification and proposed procedure were verified by the physician in the pre-procedure area. Mental Status Examination: alert and oriented. Airway Examination: normal oropharyngeal airway and neck mobility. Respiratory Examination: clear to auscultation. CV Examination: normal. Prophylactic Antibiotics: The patient does not require prophylactic antibiotics. Prior Anticoagulants: The patient has taken no previous anticoagulant or antiplatelet agents. ASA Grade Assessment: II - A patient with mild systemic disease. After reviewing the risks and benefits, the patient was deemed in satisfactory condition to undergo the procedure. The anesthesia plan was to use moderate sedation / analgesia (conscious sedation). Immediately prior to administration of medications, the patient was re-assessed for adequacy to receive sedatives. The heart rate, respiratory rate, oxygen saturations, blood pressure, adequacy of pulmonary ventilation, and response to care were monitored throughout the procedure. The physical status of the patient was re-assessed after the procedure. After I obtained informed consent, the scope was passed under direct vision. Throughout the procedure, the patient's blood pressure, pulse, and oxygen saturations were monitored continuously. The colonoscope was introduced through the anus and advanced to the cecum, identified by appendiceal orifice and ileocecal valve. The colonoscopy was performed without difficulty. The patient tolerated the procedure well. The quality of the bowel preparation was good. Moderate Sedation: Moderate (conscious) sedation was administered by the endoscopy nurse and supervised by the endoscopist. The patient's oxygen saturation, heart rate, blood pressure and response to care were monitored. Scope In: Scope Withdrawal Time 0 hours 9 minutes 15 seconds Scope Out: 7:41:11 AM Findings: The perianal and digital rectal examinations were normal. Two sessile polyps were found in the sigmoid colon and hepatic flexure. The polyps were 5 mm in size. These polyps were removed with a jumbo cold forceps. Resection and retrieval were complete. Verification of patient identification for the specimen was done. Estimated blood loss was minimal. An area of mildly congested mucosa was found in the cecum. This was biopsied with a cold forceps for histology. Verification of patient identification for the specimen was done. Estimated blood loss was minimal. The exam was otherwise without abnormality on direct and retroflexion views. Impression: - Two 5 mm polyps in the sigmoid colon and at the hepatic flexure, removed with a jumbo cold forceps. Resected and retrieved. - Congested mucosa in the cecum. Biopsied. - The examination was otherwise normal on direct and retroflexion views. Recommendation: - Discharge patient to home. - Resume previous diet today. - Continue present medications. - Await pathology results. - Repeat colonoscopy in 5 years for surveillance based on pathology results. - Return to GI office in 2 weeks. Procedure Code(s): --- Professional --- 39153, Colonoscopy, flexible; with biopsy, single or multiple CPT copyright 2017 [employer]. All rights reserved. The codes documented in this report are preliminary and upon personnel quality assurance auditor review may be revised to meet current compliance requirements. Vadim Mckinney DO 02/06/2021 7:58:22 AM This report has been signed electronically. Number of Addenda: 1 Note Initiated On: 02/06/2021 7:21 AM Addendum Number: 1 Addendum Date: 01/02/2022 4:19:32 PM MAC was used instead of moderate sedation for this patient. Vadim Mckinney DO 01/02/2022 4:19:37 PM This report has been signed electronically.
[2021-02-06 08:00] VITALS: BP 104/58; BP 115/58; PULSE 76; RESP 16; TEMP 36; O2SAT 100
[2021-02-06 08:05] VITALS: BP 104/58
== END 2021-02-06 08:19 ==
LOC: EN 05:52 → AC 05:53
PROVIDERS: PCP Internal Medicine; Referring Provider Internal Medicine; Visit Provider Internal Medicine Gastroenterology
PROC: 0DJD8ZZ Inspection of Lower Intestinal Tract, Via Natural or Artificial Opening Endoscopic (ICD-10-PCS; CPT 45378; principal; 2021-02-06 06:55)
DX: Z12.11 Encounter for screening for malignant neoplasm of colon (principal); D12.3 Benign neoplasm of transverse colon; K21.00 Gastro-esophageal reflux disease with esophagitis, without bleeding; I11.0 Hypertensive heart disease with heart failure; I50.32 Chronic diastolic (congestive) heart failure; G40.909 Epilepsy, unspecified, not intractable, without status epilepticus; E11.9 Type 2 diabetes mellitus without complications; I25.10 Atherosclerotic heart disease of native coronary artery without angina pectoris; M06.9 Rheumatoid arthritis, unspecified; E04.9 Nontoxic goiter, unspecified; E78.5 Hyperlipidemia, unspecified; G47.33 Obstructive sleep apnea (adult) (pediatric); Z78.0 Asymptomatic menopausal state; Z79.84 Long term (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 of oral hypoglycemic drugs; Z79.02 Long term (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 of antithrombotics/antiplatelets; Z79.899 Other long term (current) drug therapy; Z95.5 Presence of coronary angioplasty implant and graft
CPT/HCPCS: 43239; 45380; 82962; 88305; 88313; J7120; J2405

== ENCOUNTER 2021-03-16 09:29 | Emergency (ER) | payer MEDICARE, SELFPAY ==
[2020-12-31 12:33] VITALS: BMI 32.7
[2021-03-16 09:29] VITALS: BP 169/89; PULSE 97; RESP 16; TEMP 36.4; O2SAT 100; BMI 35.0
--- NOTE | 2021-03-16 10:11 | ED.VIS.BACK ---
HPI History of Present Illness Chief Complaint: Back Informant: patient Onset/Context/Timing Onset: Today and Hours Context: Sudden Onset Injury: lifting Timing: Continuous Quality: Sharp Location: Lumbar Current Severity: Mild Maximum Severity: Mild Associated Symptoms Associated Symptoms: Negative for Numbness, Tingling, Radiation to Right Leg, Radiation to Left Leg, Fever, Abdominal Pain, Dysuria, Unable to Ambulate, Unable to Transfer, Urinary Retention, Urinary Incontinence, Constipation and Fecal Incontinence Narrative Narrative: 70-year-old female no back history. No prior back surgeries. She was helping another person up off her floor and she fell pulling in her lower back. She had immediate pain in her left lumbar back. No radiation to her legs. No numbness. No bowel or bladder incontinence. This occurred in the last hour or so. Prior to this episode she has not been having back pain. She has had no abdominal pain. She has had no fever or chills. No bowel or bladder symptoms or incontinence. She denies any weakness to her lower extremities. Prior similar symptoms: No Recent Illness/Hospitalization: No PFSH PFSH Medical History Abdominal pain Anemia Arthritis Atherosclerotic heart disease of [place] coronary artery without angina pectoris Cardiology follow-up encounter Chronic diastolic CHF (congestive heart failure) Colon cancer screening Congestive heart failure (CHF) Conversion disorder CPAP (continuous positive airway pressure) dependence Diabetes Diabetes mellitus type 2 in nonobese Diabetes type 2, controlled Essential (primary) hypertension Foreign body in stomach GERD (gastroesophageal reflux disease) High cholesterol History of echocardiogram History of stress test Hives Hyperglycemia due to type 2 diabetes mellitus Hyperlipidemia Hypertension Non-smoker Non-toxic goiter Obesity Obstructive sleep apnea Osteoarthritis Personal history of colonic polyps Rheumatoid arthritis RIGHT FOOT HEEL SPUR Routine health maintenance Seasonal allergies Seizure disorder Seizures Shortness of breath on exertion Sleep apnea Type 2 diabetes mellitus Urinary frequency Wears glasses Home Medications multivitamin 1 tab PO DAILY 05/20/19 [History Last Taken 02/05/21] hydroxychloroquine 200 mg PO BIDCM 11/20/19 [History Last Taken 02/05/21] blood-glucose meter #1 ea 02/03/20 [Rx Last Taken Unknown] blood sugar diagnostic #50 ea 02/07/20 [Rx Last Taken Unknown] sitagliptin 100 mg tablet 100 mg PO DAILY #90 tab 03/28/20 [Rx Last Taken 02/05/21] calcium citrate 200 mg (950 mg) tablet 200 mg PO BID 05/21/20 [History Last Taken 02/05/21] atorvastatin 80 mg tablet 80 mg PO QHS #90 tab 06/08/20 [Rx Last Taken 02/05/21] carvedilol 12.5 mg tablet 12.5 mg PO BID #180 tab 06/08/20 [Rx Last Taken 02/06/21] clopidogrel 75 mg tablet 75 mg PO DAILY #90 tab 06/08/20 [Rx Last Taken 01/28/21] isosorbide mononitrate 30 mg tablet,extended release 24 hr 30 mg PO DAILY #90 tab 06/08/20 [Rx Last Taken 02/06/21] losartan 50 mg tablet 50 mg PO BID #180 tab 06/08/20 [Rx Last Taken 02/06/21] disability placard #1 ea 06/27/20 [Rx Last Taken Unknown] aspirin 81 mg tablet,delayed release 81 mg PO DAILY 08/13/20 [History Last Taken 02/05/21] lansoprazole 30 mg capsule,delayed release 30 mg PO DAILY #60 cap 08/20/20 [Rx Last Taken 02/05/21] divalproex 250 mg tablet,extended release 24 hr 250 mg PO QPM #30 tab 10/22/20 [Rx Last Taken 02/05/21] divalproex 500 mg tablet,extended release 24 hr 500 mg PO BID #60 tab 10/22/20 [Rx Last Taken 02/05/21] glimepiride 4 mg tablet 4 mg PO QAM #90 tab 02/11/21 [Rx Last Taken Unknown] duloxetine 30 mg capsule,delayed release 30 mg PO DAILY #60 cap 03/01/21 [Rx Last Taken Unknown] Allergy/AdvReac Type Severity Reaction Status Date / Time prednisone AdvReac Nausea Verified 03/16/21 09:31 Family History Grandmother Alcoholism Cancer Arthritis Mother Alcoholism Diabetes blood clots Hypertension Grandfather Heart disease Sister Thyroid disorder Other Breast cancer Cervical cancer Colon cancer Surgical History H/O: hysterectomy History of cardiac catheterization History of carpal tunnel surgery History of section History of coronary artery stent placement (03/22/18) History of left heart catheterization (09/20/18) Social History Smoking Status: Never smoker second hand exposure: No alcohol intake: current alcohol intake frequency: holidays/special occasions only substance use type: does not use what type of physical activity do you participate in: none ROS ROS ED ROS Narrative Denies recent illness. Review of Systems ROS Unobtainable: Denies due to encephalopathy Constitutional Constitutional ED: Denies fever(s) Eyes Eyes: Denies change in vision ENT ENT ED: Denies ear pain Cardiovascular Cardiovascular: Denies chest pain Respiratory/Chest Respiratory/Chest: Denies dyspnea Gastrointestinal Gastrointestinal: Denies abdominal pain Genitourinary Genitourinary ED: Denies dysuria Musculoskeletal Musculoskeletal: Reports back pain; Denies myalgias Integumentary Denies rash Neurologic Neurologic: Denies headache(s) Psychiatric Psychiatric: Denies depression Endocrine Endocrinology: Denies polyuria Hematologic/Lymphatic Hematologic/Lymphatic: Denies easy bruising Allergic/Immunologic Allergic/Immunologic ED: Denies urticaria EXAM Physical Exam Narrative Exam Narrative: 62-year-old female no acute distress vital signs stable afebrile. HEENT exam unremarkable. Lungs are clear. Heart regular rate and rhythm no murmur. Abdomen soft nontender no masses. No pulsatile mass. Moving all 4 extremities. Neurovascular intact. Lower extremities she has normal dorsi and plantar flexion. She can lift either leg. No signs of cauda equina. Negative straight leg raise bilaterally. Back exam cervical and thoracic spine nontender. Her lumbar and paralumbar musculature is tender to palpation. There is no redness or warmth. There is no signs of trauma. Neurologically she is intact. Both motor strength and sensation in both upper and lower extremities. She has obvious discomfort when she moves in bed in her lower back. Const Vital Signs: 03/16/21 09:29 Temperature 97.6 F L Temperature Source Temporal Pulse Rate 97 Respiratory Rate 16 Blood Pressure 169/89 H Blood Pressure Mean 115 Pulse Ox 100 Oxygen Delivery Method Room Air MDM MDM MDM Narrative Medical decision making narrative: Patient has a lumbar strain. She did not fall she does not need imaging. She has normal motor strength and sensation of lower extremities. She will be given p.o. Tylenol here. She and I discussed and she is okay with no imaging being done. She will follow up with her primary care physician ensure she is improving. Discharge Plan Triage Chief Complaint: Back ED Provider: Felix Acosta Dx/Rx/DC Orders Clinical Impression: Back strain Instructions: ED Back Sprain/Strain Prescriptions: No Action multivitamin Tablet 1 tab PO DAILY RF: 0 calcium citrate 200 mg (950 mg) tablet 200 mg PO BID RF: 0 aspirin [Adult Low Dose Aspirin] 81 mg tablet,delayed release (DR/EC) 81 mg PO DAILY RF: 0 divalproex 250 mg tablet extended release 24 hr 250 mg PO QPM Qty: 30 RF: 4 divalproex 500 mg tablet extended release 24 hr 500 mg PO BID Qty: 60 RF: 3 glimepiride 4 mg tablet 4 mg PO QAM Qty: 90 RF: 0 duloxetine 30 mg capsule,delayed release(DR/EC) 30 mg PO DAILY Qty: 60 RF: 0 hydroxychloroquine 200 MG tablet 200 mg PO BIDCM RF: 0 (DME) blood-glucose meter [True Metrix Air Glucose Meter] Kit See Rx Instructions .ROUTE .MEDSUPPLY Qty: 1 RF: 0 (DME) True Metrix Glucose Test Strip Strip See Rx Instructions .ROUTE .MEDSUPPLY Qty: 50 RF: 3 sitagliptin 100 mg tablet 100 mg PO DAILY Qty: 90 RF: 3 carvedilol 12.5 mg tablet 12.5 mg PO BID Qty: 180 RF: 3 losartan 50 mg tablet 50 mg PO BID Qty: 180 RF: 3 clopidogrel 75 mg tablet 75 mg PO DAILY Qty: 90 RF: 3 atorvastatin 80 mg tablet 80 mg PO QHS Qty: 90 RF: 3 isosorbide mononitrate 30 mg tablet extended release 24 hr 30 mg PO DAILY Qty: 90 RF: 3 (DME) disability placard See Rx Instructions .ROUTE .MEDSUPPLY Qty: 1 RF: 0 lansoprazole 30 mg capsule,delayed release(DR/EC) 30 mg PO DAILY Qty: 60 RF: 1 Primary Care Provider: Kannan Garcia Referrals: Kannan Garcia MD [Primary Care Provider] - 1 Week if not improving Activity Restrictions/Additional Instructions: Hot shower and warm bath relax the muscles. Massage to help relax the muscles. Ice to decrease inflammation. You are going to be sore and may actually be more sore tomorrow but should start progressively feeling better. in your lower back.You have strained the muscle You can use Motrin or Advil 400 mg twice a day for the next 5 days. I would not use it for a long period of time due to you being on the blood thinner Plavix. Tylenol also for pain. Follow-up with your doctor if not improving return to the emergency department if you are feeling a lot worse or develop weakness, numbness in your lower extremities or bowel or bladder incontinence. Disposition Disposition: Home, Self Care
[2021-03-16 10:40] VITALS: PULSE 98; RESP 17; O2SAT 100
== END 2021-03-16 10:43 | disposition home or self-care (01) ==
PROVIDERS: Emergency Provider Emergency Medicine; PCP Internal Medicine
DX: S39.012A Strain of muscle, fascia and tendon of lower back, initial encounter (principal); X58.XXXA Exposure to other specified factors, initial encounter; I11.0 Hypertensive heart disease with heart failure; I50.32 Chronic diastolic (congestive) heart failure; I25.10 Atherosclerotic heart disease of native coronary artery without angina pectoris; G40.909 Epilepsy, unspecified, not intractable, without status epilepticus; E11.65 Type 2 diabetes mellitus with hyperglycemia; E04.9 Nontoxic goiter, unspecified; E78.5 Hyperlipidemia, unspecified; M06.9 Rheumatoid arthritis, unspecified; G47.33 Obstructive sleep apnea (adult) (pediatric); K21.9 Gastro-esophageal reflux disease without esophagitis; E66.9 Obesity, unspecified; Z79.84 Long term (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 of oral hypoglycemic drugs; Z79.82 Long term (current) use of aspirin; Z79.899 Other long term (current) drug therapy
CPT/HCPCS: 99282

== ENCOUNTER → 2021-03-22 10:40 | Outpatient (CLI) | payer MEDICARE, SELFPAY ==
[2020-12-31 12:33] VITALS: BMI 32.7
[2021-03-22 10:42] LABS: Mucous, Urine 0 SEEN /hpf (<or=2+); Red Blood Cells-Urine 0 SEEN /hpf (0-5)
--- NOTE | 2021-03-22 11:10 | RAD_ITS ---
STUDY: X-RAY - LUMBAR SPINE REASON FOR EXAM: Female, 70 years old. Low Back pain TECHNIQUE: 2 view(s) of the lumbar spine were obtained. COMPARISON: None FINDINGS: Normal lumbar lordosis. There is no substantial scoliosis. There is a normal alignment of the vertebrae from L1 to L4. There is a grade 1 spondylolisthesis at L4-5. There is multilevel endplate spondylosis of the lumbar vertebrae. There is multi-level degenerative disc disease with multi-level disc space narrowing. There is no demonstrated acute fracture. There is a chronic compression fracture affecting the superior endplate of L5 which is lost approximately 10% of its height anteriorly. The soft tissue structures are unremarkable. RAD/Lumbar Spine 2 or 3 Views IMPRESSION: Multilevel degenerative changes, no acute findings Grade 1 spondylolisthesis at L4-5 Chronic compression fracture affecting the superior endplate of L5 Electronically Signed: Loki Mcgee MD at 15:59 EST , Service support ,
[2021-03-22 12:35] LABS: Color, Urine Yellow (Yellow); Glucose, Dipstick Normal (Normal); Ketone-Dipstick Negative (Negative); Leukocyte Esterase-Dipstick 25 /ul (Negative); Nitrite-Dipstick Negative (Negative); Occult Blood-Urine Negative /ul (Negative); Protein-Dipstick Negative (Negative); Urine Bilirubin Dipstick Negative (Negative); Urine Clarity Sl. Cloudy (Clear); Urine Urobilinogen 4 mg/dl (Normal)
[2021-03-22 12:45] LABS: Bacteria 1+ /hpf (None Seen); Squamous Epithelial Cells - UA 0-5 SEEN /hpf (5-10); White Blood Cells 0-5 SEEN /hpf (0-5)
== END ==
LOC: LABSPEC 10:41 → RAD 11:04
PROVIDERS: PCP Internal Medicine; Referring Provider Internal Medicine; Visit Provider Internal Medicine
DX: R30.0 Dysuria (principal); M54.50 Low back pain, unspecified
CPT/HCPCS: 72100; 81001; 87086; 87088

== ENCOUNTER → 2021-03-26 | Outpatient (CLI) | payer MEDICARE, SELFPAY ==
[2020-12-31 12:33] VITALS: BMI 32.7
[2021-03-26 09:49] LABS: Bacteria 0 SEEN /hpf (None Seen); Mucous, Urine 0 SEEN /hpf (<or=2+); Red Blood Cells-Urine 0 SEEN /hpf (0-5); White Blood Cells 0 SEEN /hpf (0-5)
[2021-03-26 12:20] LABS: Color, Urine Yellow (Yellow); Glucose, Dipstick Normal (Normal); Ketone-Dipstick 5 mg/dl (Negative); Leukocyte Esterase-Dipstick Negative /ul (Negative); Nitrite-Dipstick Negative (Negative); Occult Blood-Urine Negative /ul (Negative); Protein-Dipstick Negative (Negative); Specific Gravity, Urine 1.025 (1.002-1.030); Urine Bilirubin Dipstick Negative (Negative); Urine Clarity Sl. Cloudy (Clear); Urine Urobilinogen Normal (Normal)
[2021-03-26 12:29] LABS: Squamous Epithelial Cells - UA 0-5 SEEN /hpf (5-10)
== END | disposition home or self-care (01) ==
LOC: LABSPEC 09:48
PROVIDERS: PCP Internal Medicine; Referring Provider Internal Medicine; Visit Provider Internal Medicine
DX: R35.0 Frequency of micturition (principal)
CPT/HCPCS: 81001; 87086; 87088

== ENCOUNTER 2021-05-15 11:09 | Outpatient (CLI) | payer MEDICARE, SELFPAY ==
[2020-12-31 12:33] VITALS: BMI 32.7
== END 2021-05-15 23:59 | disposition short-term general hospital (02) ==
LOC: LABSPEC 11:10
PROVIDERS: PCP Internal Medicine; Referring Provider Physician Assistant; Visit Provider Physician Assistant
DX: Z11.52 Encounter for screening for COVID-19 (principal)
CPT/HCPCS: 87635; U0003; U0005

== ENCOUNTER 2021-05-17 15:21 | Outpatient (CLI) | payer MEDICARE, SELFPAY ==
[2020-12-31 12:33] VITALS: BMI 32.7
[2021-05-17 15:25] LABS: Bacteria 0 SEEN /hpf (None Seen); Red Blood Cells-Urine 0 SEEN /hpf (0-5)
[2021-05-17 16:35] LABS: Color, Urine Yellow (Yellow); Glucose, Dipstick Normal (Normal); Ketone-Dipstick Negative (Negative); Leukocyte Esterase-Dipstick 100 /ul (Negative); Nitrite-Dipstick Negative (Negative); Occult Blood-Urine Negative /ul (Negative); Protein-Dipstick Negative (Negative); Urine Bilirubin Dipstick Negative (Negative); Urine Clarity Clear (Clear); Urine Urobilinogen 1 mg/dl (Normal)
[2021-05-17 16:42] LABS: Mucous, Urine 1+ /hpf (<or=2+); Squamous Epithelial Cells - UA 0-5 SEEN /hpf (5-10); White Blood Cells 0-5 SEEN /hpf (0-5)
== END 2021-05-17 23:59 | disposition short-term general hospital (02) ==
LOC: LABSPEC 15:24
PROVIDERS: PCP Internal Medicine; Referring Provider Nurse Practitioner Family; Visit Provider Nurse Practitioner Family
DX: R30.0 Dysuria (principal); R10.9 Unspecified abdominal pain
CPT/HCPCS: 81001; 87086; 87088

== ENCOUNTER 2021-06-13 08:35 | Outpatient (CLI) | payer MEDICARE, SELFPAY ==
[2020-12-31 12:33] VITALS: BMI 32.7
--- NOTE | 2021-06-13 08:51 | BD_ITS ---
STUDY: DUAL ENERGY X-RAY ABSORPTIOMETRY / DXA REASON FOR EXAM: Female, 70 years old. M48.56XA - Collapsed vertebra, not elsewhere classified, lumbar region, initial encounter for fracture TECHNIQUE: Bone Mineral Density (BMD) measurements for vertebral fracture assessment. Obtained. COMPARISON: None. FINDINGS: There is approximately 50% loss of height of the T12 vertebrae. Mild degree of loss of height of the superior endplate of the L1 vertebrae. BD/Vert Fx Assess/Lat Bone Den IMPRESSION: 50% loss of height of the T12 vertebrae. Mild degree of loss of height of the superior endplate of the L1 vertebrae. Reference Information: The T-score is the number of standard deviations above or below the standard which is normal for young adults at their peak bone mineral density. The World Health Organization (WHO) interprets the T-scores as follows: Above -1 Normal bone density Between -1 and -2.5 Osteopenia Equal to / or below -2.5 Osteoporosis As a practical clinical guideline, osteopenia may be graded as follows: Mild -1 through -1.5 Moderate -1.6 through -2.0 Severe -2.1 through -2.4 The Z-score is the number of standard deviations above or below age-matched controls. A Z-score of less than -1.5 would be considered abnormal. References: 1. NIH Osteoporosis and Related Bone Diseases www osteo.org 2. International Society for Clinical Densitometry www iscd.org 3. National Osteoporosis Foundation www nof.org Electronically Signed: Tor Artis MD at 10:51 EST ,
--- NOTE | 2021-06-13 08:51 | BD_ITS ---
STUDY: DUAL ENERGY X-RAY ABSORPTIOMETRY / DXA REASON FOR EXAM: Female, 70 years old. The patient is postmenopausal. TECHNIQUE: Bone Mineral Density (BMD) measurements of lumbar spine and bilateral hips were obtained. COMPARISON: Comparison is made with prior study dated 01/13/2018. FINDINGS: Lumbar Spine (L1-L4): g/cm2 (0.771) / T-score (-3.4) / Z-score (-1.2) Findings are suggestive of osteoporosis with a high fracture risk. Left Femur Total: g/cm2 (0.819) / T-score (-1.4) / Z-score (-0.3) Left Femoral Neck: g/cm2 (0.634) / T-score (-2.2) / Z-score (-0.8) Right Femur Total: g/cm2 (0.796) / T-score (-1.5) / Z-score (-0.4) Right Femoral Neck: g/cm2 (0.585) / T-score (-2.6) / Z-score (-1.2) The T-Scores on the most recent prior examination were: Lumbar Spine (L1-L4): There has been worsening of bone density since the previous examination. Left Femur Total: which represents a worsening of 7.6%. Right Femur Total: which represents a worsening of 3.7%. BD/Dexa Bone Density Study IMPRESSION: The patient is considered osteoporotic as outlined below according to World Silvio Organization (WHO) criteria with a high fracture risk. There has been worsening of bone density since the previous examination. Reference Information: The T-score is the number of standard deviations above or below the standard which is normal for young adults at their peak bone mineral density. The World Health Organization (WHO) interprets the T-scores as follows: Above -1 Normal bone density Between -1 and -2.5 Osteopenia Equal to / or below -2.5 Osteoporosis As a practical clinical guideline, osteopenia may be graded as follows: Mild -1 through -1.5 Moderate -1.6 through -2.0 Severe -2.1 through -2.4 The Z-score is the number of standard deviations above or below age-matched controls. A Z-score of less than -1.5 would be considered abnormal. References: 1. NIH Osteoporosis and Related Bone Diseases www osteo.org 2. International Society for Clinical Densitometry www iscd.org 3. National Osteoporosis Foundation www nof.org Electronically Signed: Tor Artis MD at 12:11 EST ,
== END 2021-06-13 23:59 | disposition home or self-care (01) ==
LOC: OPBD 08:35
PROVIDERS: PCP Internal Medicine; Referring Provider Nurse Practitioner Family; Visit Provider Nurse Practitioner Family
DX: Z78.0 Asymptomatic menopausal state (principal); M48.56XA Collapsed vertebra, not elsewhere classified, lumbar region, initial encounter for fracture
CPT/HCPCS: 77080; 77086

== ENCOUNTER 2021-07-18 11:00 | Outpatient (RCR) | payer MEDICARE, SELFPAY ==
[2020-12-31 12:33] VITALS: BMI 32.7
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
--- NOTE | 2021-07-18 11:25 | HP.PTDCSUM ---
It has been my pleasure to treat LACY ALVARADO referred by Saul Nicole NP-C, with the diagnosis of LOW BACK PAIN for a total of 7 visit(s). Discharge Date: Please see the following information for a summary of their discharge status. Subjective: PATIENT REPORTS SHE LOVES THERAPY AND FEELS SO GOOD. STATES SHE IS FOLLOWING HOME INSTRUCTIONS GIVEN AND ON A WALKING PROGRAM NOW THAT THE WEATHER IS GETTING BETTER. I HAVE LEARNED TO MANAGE MY PAIN AND I AM GOING TO KEEP DOING MY EX'S. GOING TO [place] FOR A MONTH NEXT MONTH. LOW BACK Pain Intensity (Out of 10): 4 % Improvement: 100 Objective/Function: PATIENT WAS SEEN TODAY FOR RE-ASSESSMENT OF PROGRESS TOWARD THE SET PT GOALS AND THE NEED FOR FURTHER PHYSICAL THERAPY VS READINESS FOR DISCHARGE. PATIENT HAS MADE GREAT PROGRESS WITH PT AND IS INDEP WITH A HEP. SHE IS APPROPIRATE FOR DISCHARGE AND AGREEABLE. UPON EXAM TODAY: Motor deficit: RIGHT: HIP 4-/5, KNEE EXT 4/5, KNEE FLEX 5/5, ANKLE 5/5. LEFT: HIP FLEX 4-/5, KNEE EXT 4/5, KNEE FLEX 4/5, ANKLE 5/5. Sensory deficit: DECREASED LIGHT TOUCH SENSATION OF LEFT THIGH COMPARED TO RIGHT. ROM deficit: TIGHT JOSE HIP FLEXORS, HS'S AND GASTROC-SOLEUS COMPLEX'S. L HS TIGHTER THAN RIGHT. Dural Signs: NEGATIVE JOSE LE'S. Lumbar mvmt loss: flex - MOD. ext - LAINA. R SG - MOD. L SG - MOD. PATIENT DENIES PAIN WITH LUMBAR ROM TESTING TODAY. Palpation: NO ACUTE SPINAL TENDERNESS TODAY. Goal 1:: DECREASE C/O BACK AND LLE SX'S. Goal Progress: Goal Met Goal 2:: IMPROVE PERSONAL CARE, LIFTING, WALKING, SITTING, STANDING, SLEEP, SOCIAL LIFE, TRAVEL, WORK AND HOMEMAKING FUNCTION. Goal Progress: Goal Met Goal 3:: INSTRUCT IN PROPHYLAXIS Goal Progress: Goal Met Plan: D/C TO HEP. PATIENT AGREEABLE If there are questions or concerns regarding this patient's physical therapy, please feel free to call me at [phone]. Thank you for the referral of this patient. Sincerely, Zeenat Real, PT, Cert MDT Balance/Gait/Functional tests - Balance/Special Test Scores Oswestry Low Back Score: 11
== END 2021-07-18 19:00 | disposition home or self-care (01) ==
LOC: PT 11:00
PROVIDERS: PCP Internal Medicine; Referring Provider Nurse Practitioner Family; Visit Provider Nurse Practitioner Family
DX: M54.50 Low back pain, unspecified (principal); G89.29 Other chronic pain
CPT/HCPCS: 97035; 97112; 97162; 97164; 97530

== ENCOUNTER 2021-10-25 13:33 | Emergency (ER) | payer MEDICARE, SELFPAY ==
[2020-12-31 12:33] VITALS: BMI 32.7
[2021-10-25 13:34] VITALS: BP 134/79; PULSE 100; RESP 18; TEMP 36.6; O2SAT 100; BMI 32.9
--- NOTE | 2021-10-25 14:10 | EKG12_ITS ---
Test Reason : Blood Pressure : / mmHG Vent. Rate : 091 BPM Atrial Rate : 091 BPM P-R Int : 144 ms QRS Dur : 076 ms QT Int : 370 ms P-R-T Axes : 054 008 038 degrees QTc Int : 455 ms Normal sinus rhythm Normal ECG Confirmed by MILADY ZUNIGA, TRUDY ([id number]), photography editor CLAUDIA HECTOR ([id number]) on 10/29/2021 8:03:59 AM Referred By: PC Confirmed By:TRUDY HENNING MD
--- NOTE | 2021-10-25 14:11 | RAD_ITS ---
STUDY: X-RAY CHEST REASON FOR EXAM: Female, 70 years old. cough TECHNIQUE: Single AP portable view of the chest. COMPARISON: 08/03/2019 FINDINGS: The lungs are clear and expanded. There is no demonstrated pleural abnormality. Normal size heart. Normal mediastinum and allie. Normal visualized pulmonary arteries. Normal visualized aortic arch and descending thoracic aorta. Normal visualized thoracic spine. Normal visualized ribs, clavicles, and shoulders. There is no demonstrated abnormality of the visualized soft tissue structures of the upper abdomen. RAD/Chest 1 View (Portable) IMPRESSION: Normal x-ray examination of the chest. Electronically Signed: Gold Young MD at 15:11 EDT ,
--- NOTE | 2021-10-25 14:18 | EDS_ITS ---
HPI History of Present Illness Chief Complaint: Chest Pain Narrative Narrative: Chief complaint says chest pain, patient is presenting with myalgias, chills, nausea vomiting, upper airway congestion and loss of smell for about a week. No difficulty breathing although she does have a cough. She has no back pain or tearing sensation. She is denying abdominal pain. When asked specifically about chest pain she admits to having chest pain but she thinks it is from the coughing and it is worse with coughing. PFSH [facility] Medical History Abdominal pain Acute back pain Anemia Arthritis Atherosclerotic heart disease of [place] coronary artery without angina pectoris Cardiology follow-up encounter Chronic diastolic CHF (congestive heart failure) Colon cancer screening Compression fracture of lumbar spine, non-traumatic Congestive heart failure (CHF) Conversion disorder CPAP (continuous positive airway pressure) dependence Diabetes Diabetes mellitus type 2 in nonobese Diabetes type 2, controlled Dysuria Dysuria Essential (primary) hypertension Foreign body in stomach GERD (gastroesophageal reflux disease) High cholesterol History of echocardiogram History of stress test Hives Hyperglycemia due to type 2 diabetes mellitus Hyperlipidemia Hypertension Non-smoker Non-toxic goiter Obesity Obstructive sleep apnea Osteoarthritis Osteoporosis Personal history of colonic polyps Rheumatoid arthritis RIGHT FOOT HEEL SPUR Routine health maintenance Seasonal allergies Seizure disorder Seizures Shortness of breath on exertion Sleep apnea Therapeutic drug monitoring Type 2 diabetes mellitus Urinary frequency Urinary frequency Wears glasses Home Medications multivitamin 1 tab PO DAILY vitamin 05/20/19 [History Last Taken 02/05/21] hydroxychloroquine 200 mg tablet 200 mg PO BIDCM arthritis 11/20/19 [History Last Taken 02/05/21] blood-glucose meter (True Metrix Air Glucose Meter) #1 ea 02/03/20 [Rx Last Taken Unknown] calcium citrate 200 mg (950 mg) tablet 200 mg PO BID 05/21/20 [History Last Taken 02/05/21] disability placard #1 ea 06/27/20 [Rx Last Taken Unknown] aspirin 81 mg tablet,delayed release (Adult Low Dose Aspirin) 81 mg PO DAILY 08/13/20 [History Last Taken 02/05/21] lansoprazole 30 mg capsule,delayed release 30 mg PO DAILY #60 caps 08/20/20 [Rx Last Taken 02/05/21] duloxetine 30 mg capsule,delayed release 30 mg PO DAILY #60 caps 03/01/21 [Rx Last Taken Unknown] sitagliptin 100 mg tablet 100 mg PO DAILY diabetes #90 tabs 05/02/21 [Rx Last Taken Unknown] benzonatate 200 mg capsule 200 mg PO TID PRN cough #60 caps 06/03/21 [Rx Last Taken Unknown] guaifenesin 400 mg tablet 400 mg PO TID PRN congestion, cough #30 tabs 06/03/21 [Rx Last Taken Unknown] atorvastatin 80 mg tablet 80 mg PO QHS #90 tabs 07/02/21 [Rx Last Taken Unknown] carvedilol 12.5 mg tablet 12.5 mg PO BID #180 tabs 07/02/21 [Rx Last Taken Unknown] clopidogrel 75 mg tablet 75 mg PO DAILY #90 tabs 07/02/21 [Rx Last Taken Unknown] glimepiride 4 mg tablet 4 mg PO QAM #90 tabs 07/02/21 [Rx Last Taken Unknown] isosorbide mononitrate 30 mg tablet,extended release 24 hr 30 mg PO DAILY #90 tabs 07/02/21 [Rx Last Taken Unknown] losartan 50 mg tablet 50 mg PO BID #180 tabs 07/02/21 [Rx Last Taken Unknown] blood sugar diagnostic (True Metrix Glucose Test Strip) #100 ea 07/17/21 [Rx Last Taken Unknown] divalproex 250 mg tablet,extended release 24 hr 250 mg PO DAILY #30 tabs 10/17/21 [Rx Last Taken Unknown] divalproex 500 mg tablet,extended release 24 hr 1,000 mg PO DAILY #60 tabs 10/17/21 [Rx Last Taken Unknown] Allergy/AdvReac Type Severity Reaction Status Date / Time prednisone AdvReac Nausea Verified 10/25/21 13:38 Family History Grandmother Alcoholism Cancer Arthritis Mother Alcoholism Diabetes blood clots Hypertension Grandfather Heart disease Sister Thyroid disorder Other Breast cancer Cervical cancer Colon cancer Surgical History H/O: hysterectomy History of cardiac catheterization History of carpal tunnel surgery History of section History of coronary artery stent placement (03/22/18) History of left heart catheterization (09/20/18) Social History Smoking Status: Never smoker second hand exposure: No alcohol intake: current alcohol intake frequency: holidays/special occasions only substance use type: does not use what type of physical activity do you participate in: none ROS ROS ED ROS Narrative Past medical history: Reviewed, it is complex and I reviewed it in [facility] and at bedside Medications: Reviewed in [facility] Social history: Noncontributory Review of systems: All systems negative except as indicated General: No fever. Some chills Eyes: No visual changes ENT: Some upper airway congestion. Loss of smell Neck: No neck pain Cardiovascular: Chest pain especially with cough Respiratory: No shortness of breath. Cough which is mostly nonproductive Gastrointestinal: No abdominal pain, nausea vomiting or diarrhea Genitourinary: No dysuria Musculoskeletal: Some myalgias Skin: No rash Neurological: No memory loss, confusion or any focal weakness Psych: No recent behavioral changes Hematologic: No easy bleeding or easy bruising EXAM Physical Exam Narrative Exam Narrative: Physical exam General: Patient does not appear in significant distress she does not appear ill. Head: Normocephalic, Atraumatic Eyes: Conjunctiva not pale ENT: Moist mucous membranes. Some upper airway congestion. Neck: Supple, Nontender, No lymphadenopathy Cardiovascular: Regular rate, Regular rhythm Respiratory: No distress, CTA bilaterally, no wheezing. Abdomen: Soft, Nontender, Nondistended Back: Nontender, Normal Inspection. Negative for: CVA tenderness Extremities: Nontender, No edema Skin: Normal color, No rash Neurological: Alert, Normal Strength, Normal Sensation Psychological: Normal affect Const Vital Signs: 10/25/21 13:34 Temperature 98 F Temperature Source Temporal Pulse Rate 100 Respiratory Rate 18 Blood Pressure 134/79 H Blood Pressure Mean 97 Pulse Ox 100 Oxygen Delivery Method Room Air MDM MDM MDM Narrative Medical decision making narrative: Work-up is unremarkable however the patient does have upper respiratory symptoms with loss of smell and myalgias but states the rapid COVID antigen I will get a PCR test also but otherwise I believe the patient can be safely discharged. Lab Data Labs: Laboratory Results - last 24 hr 10/25/21 10/25/21 14:30 14:30 WBC 6.6 RBC 4.16 L Hgb 13.0 Hct 39.7 MCV 95.4 MCH 31.3 MCHC 32.7 RDW Std Deviation 46.5 H RDW Coeff of [place] 13.1 Plt Count 223 MPV 10.6 Immature Gran % (Auto) 0.200 Neut % (Auto) 52.9 Lymph % (Auto) 38.4 [place] % (Auto) 5.9 Eos % (Auto) 2.1 Baso % (Auto) 0.5 Absolute Neuts (auto) 3.5 Absolute Lymphs (auto) 2.55 Nucleated RBC % 0 Sodium 138 Potassium 4.0 Chloride 105 Carbon Dioxide 27.0 Anion Gap 6 BUN 19 H Creatinine 0.92 Estim Creat Clear Calc 46.29 Est GFR (MDRD) Af Amer 78 Est GFR (MDRD) Non-Af 64 BUN/Creatinine Ratio 20.7 H Glucose 188 H Calcium 9.1 Total Bilirubin 0.20 AST 22 ALT 33 Alkaline Phosphatase 92 Troponin I High Sens < 3 L Total Protein 7.6 Albumin 3.5 Globulin 4.1 Albumin/Globulin Ratio 0.9 Lipase 89 Radiography Diagnostic Testing: Clinical Impression(s) from Imaging Studies Chest X-Ray 10/25/21 14:11 IMPRESSION: Normal x-ray examination of the chest. Electronically Signed: Gold Young MD at 15:11 EDT , Discharge Plan Triage Chief Complaint: Chest Pain ED Provider: Newton Matos Dx/Rx/DC Orders Clinical Impression: Acute upper respiratory infection, Myalgia Instructions: ED URI, Viral, No Abx (Adult) Prescriptions: No Action multivitamin Tablet 1 tab PO DAILY calcium citrate 200 mg (950 mg) tablet 200 mg PO BID aspirin [Adult Low Dose Aspirin] 81 mg tablet,delayed release (DR/EC) 81 mg PO DAILY duloxetine 30 mg capsule,delayed release(DR/EC) 30 mg PO DAILY Qty: 60 0RF benzonatate 200 mg capsule 200 mg PO TID PRN (Reason: cough) Qty: 60 0RF guaifenesin 400 mg tablet 400 mg PO TID PRN (Reason: congestion, cough) Qty: 30 0RF divalproex 250 mg tablet extended release 24 hr 250 mg PO DAILY Qty: 30 3RF Rx Instructions: Take with two tabs of divalproex ER 500mg for a total dose of 1250mg once daily divalproex 500 mg tablet extended release 24 hr 1,000 mg PO DAILY Qty: 60 3RF Rx Instructions: Take with divalproex ER 250mg for a total dose of 1250mg once daily hydroxychloroquine 200 MG tablet 200 mg PO BIDCM (DME) blood-glucose meter [True Metrix Air Glucose Meter] Kit See Rx Instructions .ROUTE .MEDSUPPLY Qty: 1 0RF Rx Instructions: As directed (DME) disability placard See Rx Instructions .ROUTE .MEDSUPPLY Qty: 1 0RF Rx Instructions: As directed, Length of time: 5 years lansoprazole 30 mg capsule,delayed release(DR/EC) 30 mg PO DAILY Qty: 60 1RF sitagliptin 100 mg tablet 100 mg PO DAILY Qty: 90 3RF glimepiride 4 mg tablet 4 mg PO QAM Qty: 90 0RF Rx Instructions: administer with breakfast losartan 50 mg tablet 50 mg PO BID Qty: 180 3RF carvedilol 12.5 mg tablet 12.5 mg PO BID Qty: 180 3RF clopidogrel 75 mg tablet 75 mg PO DAILY Qty: 90 3RF isosorbide mononitrate 30 mg tablet extended release 24 hr 30 mg PO DAILY Qty: 90 3RF atorvastatin 80 mg tablet 80 mg PO QHS Qty: 90 3RF (DME) True Metrix Glucose Test Strip Strip See Rx Instructions .ROUTE .MEDSUPPLY Qty: 100 3RF Rx Instructions: check twice a day and as needed Primary Care Provider: Kannan Garcia Referrals: Kannan Garcia MD [Primary Care Provider] - 2 Days Disposition Disposition: Home, Self Care
[2021-10-25 14:51] LABS: Absolute Lymphocyte Count 2.55 X10^3/uL (0.83-4.51); Absolute Neutrophil Count 3.5 X10^3/uL (2.0-7.7); Basophil# 0.03 X10^3/uL; Basophil% 0.5 % (0-1); Eosinophil# 0.14 X10^3/uL; Eosinophils% 2.1 % (0-5); Hematocrit 39.7 % (37-47); Lymphocyte # 2.55 X10^3/ul (0.83-4.51); Lymphocyte % 38.4 % (19-41); Mean Corp Hgb Conc 32.7 g/dL (32-36); Mean Corpuscular Hgb 31.3 pg (27.0-32.0); Mean Corpuscular Volume 95.4 fL (81-99); Mean Platelet Vol. 10.6 fl (6.2-12.0); Monocyte# 0.39 X10^3/uL; Monocyte% 5.9 % (0-10); NRBC Flagged by Analyzer 0 % (0-5); Neutrophil # 3.52 X10^3/uL (2.7-7.7); Neutrophil % 52.9 % (47-70); Platelet Count 223 K/mm3 (150-450); RBC Distribution Width CV 13.1 % (11.6-14.6); RBC Distribution Width SD 46.5 fl (35.1-43.9); Red Blood Count 4.16 M/mm3 (4.2-5.4); White Blood Count 6.6 K/mm3 (4.4-11.0)
[2021-10-25 15:14] LABS: ALB/GLOB Ratio 0.9 RATIO (0.9-2.4); AST(SGOT) 22 U/L (15-37); Alanine Aminotransfer ALT/SGPT 33 U/L (13-56); Albumin, Serum 3.5 g/dL (3.2-5.0); Alkaline Phosphatase 92 U/L (45-117); Anion Gap 6 (5-15); BUN 19 mg/dL (7-18); BUN/Creat Ratio 20.7 RATIO (10-20); Calcium,Total 9.1 mg/dL (8.5-10.1); Chloride 105 mmol/L (98-107); Creatinine, Serum 0.92 mg/dL (0.55-1.02); EST Glomerular Filtration Rate 64 mL/min (>60); Est Glom Filt Rate - Afr Amer 78 mL/min (>60); Estimated Creatinine Clearance 46.29 ml/min; Globulin 4.1 g/dL (2.2-4.2); Glucose 188 mg/dL (74-106); Lipase 89 U/L (73-393); Protein, Total 7.6 g/dL (6.4-8.2); Sodium Level 138 mmol/L (136-145); Troponin-I HS < 3 pg/mL (3.0-54.0)
[2021-10-25 15:34] VITALS: BP 126/64; PULSE 78; RESP 12; TEMP 37.2; O2SAT 98
== END 2021-10-25 15:35 | disposition home or self-care (01) ==
PROVIDERS: Emergency Provider Emergency Medicine; PCP Internal Medicine; Visit Provider Emergency Medicine
DX: J06.9 Acute upper respiratory infection, unspecified (principal); I11.0 Hypertensive heart disease with heart failure; I50.32 Chronic diastolic (congestive) heart failure; G40.909 Epilepsy, unspecified, not intractable, without status epilepticus; E11.9 Type 2 diabetes mellitus without complications; Z20.822 Contact with and (suspected) exposure to COVID-19; E78.00 Pure hypercholesterolemia, unspecified; I25.10 Atherosclerotic heart disease of native coronary artery without angina pectoris; E78.5 Hyperlipidemia, unspecified; K21.9 Gastro-esophageal reflux disease without esophagitis; G47.33 Obstructive sleep apnea (adult) (pediatric); E66.9 Obesity, unspecified; Z79.82 Long term (current) use of aspirin; Z79.84 Long term (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 of oral hypoglycemic drugs; Z79.02 Long term (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 of antithrombotics/antiplatelets; Z79.899 Other long term (current) drug therapy; Z95.5 Presence of coronary angioplasty implant and graft
CPT/HCPCS: 71045; 80053; 83690; 84484; 85025; 87428; 93005; 99282; J7030; A4216

== ENCOUNTER 2021-11-28 19:33 | Emergency (ER) | payer MEDICARE, SELFPAY ==
[2020-12-31 12:33] VITALS: BMI 32.7
[2021-11-28 19:34] VITALS: BP 167/74; PULSE 109; RESP 18; TEMP 37; O2SAT 99; BMI 22.4
--- NOTE | 2021-11-28 19:49 | EX.ED.UPPERE ---
HPI History of Present Illness Chief Complaint: Upper Extremity Injury Narrative Narrative: Patient presents with right elbow pain radiating down to her fingers that she has had for the last 3 to 4 days. She is left-hand dominant. She denies any trauma to the area but states that her elbow has been swollen. She denies any chest pain or shortness of breath. Its described as a sharp stabbing pain that is worse with movement. It is on the back of her elbow. She is concerned because she states she has history of CHF. [facility] Medical History Abdominal pain Acute back pain Anemia Arthritis Atherosclerotic heart disease of [place] coronary artery without angina pectoris Cardiology follow-up encounter Chronic diastolic CHF (congestive heart failure) Colon cancer screening Compression fracture of lumbar spine, non-traumatic Congestive heart failure (CHF) Conversion disorder CPAP (continuous positive airway pressure) dependence Diabetes Diabetes mellitus type 2 in nonobese Diabetes type 2, controlled Dysuria Dysuria Essential (primary) hypertension Foreign body in stomach GERD (gastroesophageal reflux disease) Health care maintenance High cholesterol History of echocardiogram History of stress test Hives Hyperglycemia due to type 2 diabetes mellitus Hyperlipidemia Hypertension Non-smoker Non-toxic goiter Obesity Obstructive sleep apnea Osteoarthritis Osteoporosis Personal history of colonic polyps Rheumatoid arthritis RIGHT FOOT HEEL SPUR Right shoulder pain Routine health maintenance Seasonal allergies Seizure disorder Seizures Shortness of breath on exertion Sleep apnea Therapeutic drug monitoring Type 2 diabetes mellitus Urinary frequency Urinary frequency Wears glasses Home Medications multivitamin 1 tab PO DAILY vitamin 05/20/19 [History Last Taken 02/05/21] hydroxychloroquine 200 mg tablet 200 mg PO BIDCM arthritis 11/20/19 [History Last Taken 02/05/21] blood-glucose meter (True Metrix Air Glucose Meter kit) #1 ea 02/03/20 [Rx Last Taken Unknown] calcium citrate 200 mg (950 mg) tablet 200 mg PO BID 05/21/20 [History Last Taken 02/05/21] disability placard #1 ea 06/27/20 [Rx Last Taken Unknown] aspirin 81 mg tablet,delayed release (Adult Low Dose Aspirin) 81 mg PO DAILY 08/13/20 [History Last Taken 02/05/21] lansoprazole 30 mg capsule,delayed release 30 mg PO DAILY #60 caps 08/20/20 [Rx Last Taken 02/05/21] duloxetine 30 mg capsule,delayed release 30 mg PO DAILY #60 caps 03/01/21 [Rx Last Taken Unknown] sitagliptin 100 mg tablet 100 mg PO DAILY diabetes #90 tabs 05/02/21 [Rx Last Taken Unknown] guaifenesin 400 mg tablet 400 mg PO TID PRN congestion, cough #30 tabs 06/03/21 [Rx Last Taken Unknown] atorvastatin 80 mg tablet 80 mg PO QHS #90 tabs 07/02/21 [Rx Last Taken Unknown] carvedilol 12.5 mg tablet 12.5 mg PO BID #180 tabs 07/02/21 [Rx Last Taken Unknown] clopidogrel 75 mg tablet 75 mg PO DAILY #90 tabs 07/02/21 [Rx Last Taken Unknown] glimepiride 4 mg tablet 4 mg PO QAM #90 tabs 07/02/21 [Rx Last Taken Unknown] isosorbide mononitrate 30 mg tablet,extended release 24 hr 30 mg PO DAILY #90 tabs 07/02/21 [Rx Last Taken Unknown] losartan 50 mg tablet 50 mg PO BID #180 tabs 07/02/21 [Rx Last Taken Unknown] blood sugar diagnostic (True Metrix Glucose Test Strip) #100 ea 07/17/21 [Rx Last Taken Unknown] divalproex 250 mg tablet,extended release 24 hr 250 mg PO DAILY #30 tabs 10/17/21 [Rx Last Taken Unknown] divalproex 500 mg tablet,extended release 24 hr 1,000 mg PO DAILY #60 tabs 10/17/21 [Rx Last Taken Unknown] tramadol 50 mg tablet (Ultram) 50 mg PO Q6H PRN pain 3 days #12 tabs 11/28/21 [Rx Last Taken Unknown] Allergy/AdvReac Type Severity Reaction Status Date / Time prednisone AdvReac Nausea Verified 11/28/21 19:36 Family History Grandmother Alcoholism Cancer Arthritis Mother Alcoholism Diabetes blood clots Hypertension Grandfather Heart disease Sister Thyroid disorder Other Breast cancer Cervical cancer Colon cancer Surgical History H/O: hysterectomy History of cardiac catheterization History of carpal tunnel surgery History of section History of coronary artery stent placement (03/22/18) History of left heart catheterization (09/20/18) Social History Smoking Status: Never smoker second hand exposure: No alcohol intake: current alcohol intake frequency: holidays/special occasions only substance use type: does not use what type of physical activity do you participate in: none ROS ROS ED ROS Narrative Constitutional: No fever, no chills. HEENT: No sore throat. No neck pain. No loss of vision. No rhinorrhea. Cardiovascular: No chest pain. No palpitations. No pedal edema. Respiratory: No cough, no shortness of breath. Abdominal: No abdominal pain. No nausea. No vomiting. Genitourinary: No dysuria. No hematuria. Musculoskeletal: No myalgias. Right posterior elbow pain radiating towards fingers. Reports swelling of right hand. Neurologic: No headaches. No dizziness. No lightheadedness. Skin: No rash. No change in color. Psychiatric: No depression. No anxiety. EXAM Physical Exam Narrative Exam Narrative: Afebrile. Vital signs noted. HEENT: Normocephalic. Atraumatic. PERRL, EOMI. Neck soft and supple. No point tenderness or step off. Cardiovascular: Regular rate and rhythm. No murmurs, rubs, or gallops appreciated. Respiratory: No tachypnea. Lungs clear to auscultation bilaterally. Gastrointestinal: Abdomen soft, nontender, with normoactive bowel sounds. No rebound or guarding. Neurological: Awake. Alert. Nonfocal, nonlateralizing. Skin: No rash. Normal color. No pallor. Musculoskeletal: No pedal edema. Decreased range of motion right elbow secondary to pain. Mild tenderness on the right olecranon bursa. Palpable radial pulse. Full range of motion of right wrist. Const Vital Signs: 11/28/21 19:34 Temperature 98.6 F Temperature Source Temporal Pulse Rate 109 H Respiratory Rate 18 Blood Pressure 167/74 H Blood Pressure Mean 105 Pulse Ox 99 Oxygen Delivery Method Room Air MDM MDM MDM Narrative Medical decision making narrative: I do feel the patient has more of an olecranon bursitis. She states that she took Tylenol and Aleve without relief the other day. She is given ibuprofen 800 mg here orally and x-rays were obtained of the right elbow. I have less concern for DVT as she does not have appreciable circumferential swelling of her hand and the pain is reproducible on the back of her elbow. Regardless, I will write her for an outpatient ultrasound of her right upper extremity. X-rays of the right elbow interpreted by myself show no evidence of fracture. There is a small amount of calcific tendinitis noted around the olecranon bursa. She will be treated as an olecranon bursitis and continue ice and she will be given an [place] wrap here in the emergency department. She will follow-up with her primary care provider for possible referral to orthopedics as needed. She was given a prescription for a few Ultram tablets to take over the next few days. She will continue her Aleve as needed. Follow-up with her primary care physician. Disposition is discharged home in stable condition. Discharge Plan Triage Chief Complaint: Upper Extremity Injury ED Provider: Cayden Carrillo Dx/Rx/DC Orders Clinical Impression: Olecranon bursitis, Calcific tendonitis, Arm pain, right Instructions: ED Pain, Acute, Uncertain Cause, ED Tendonitis, ED Bursitis Elbow Olecranon Prescriptions: New tramadol [Ultram] 50 mg tablet 50 mg PO Q6H PRN (Reason: pain) 3 Days Qty: 12 0RF No Action multivitamin Tablet 1 tab PO DAILY calcium citrate 200 mg (950 mg) tablet 200 mg PO BID aspirin [Adult Low Dose Aspirin] 81 mg tablet,delayed release (DR/EC) 81 mg PO DAILY duloxetine 30 mg capsule,delayed release(DR/EC) 30 mg PO DAILY Qty: 60 0RF guaifenesin 400 mg tablet 400 mg PO TID PRN (Reason: congestion, cough) Qty: 30 0RF divalproex 250 mg tablet extended release 24 hr 250 mg PO DAILY Qty: 30 3RF Rx Instructions: Take with two tabs of divalproex ER 500mg for a total dose of 1250mg once daily divalproex 500 mg tablet extended release 24 hr 1,000 mg PO DAILY Qty: 60 3RF Rx Instructions: Take with divalproex ER 250mg for a total dose of 1250mg once daily hydroxychloroquine 200 MG tablet 200 mg PO BIDCM (DME) blood-glucose meter [True Metrix Air Glucose Meter] Kit See Rx Instructions .ROUTE .MEDSUPPLY Qty: 1 0RF Rx Instructions: As directed (DME) disability placard See Rx Instructions .ROUTE .MEDSUPPLY Qty: 1 0RF Rx Instructions: As directed, Length of time: 5 years lansoprazole 30 mg capsule,delayed release(DR/EC) 30 mg PO DAILY Qty: 60 1RF sitagliptin 100 mg tablet 100 mg PO DAILY Qty: 90 3RF glimepiride 4 mg tablet 4 mg PO QAM Qty: 90 0RF Rx Instructions: administer with breakfast losartan 50 mg tablet 50 mg PO BID Qty: 180 3RF carvedilol 12.5 mg tablet 12.5 mg PO BID Qty: 180 3RF clopidogrel 75 mg tablet 75 mg PO DAILY Qty: 90 3RF isosorbide mononitrate 30 mg tablet extended release 24 hr 30 mg PO DAILY Qty: 90 3RF atorvastatin 80 mg tablet 80 mg PO QHS Qty: 90 3RF (DME) True Metrix Glucose Test Strip Strip See Rx Instructions .ROUTE .MEDSUPPLY Qty: 100 3RF Rx Instructions: check twice a day and as needed Other Ambulatory Orders: Venous Duplex US, Unilateral (Routine) Facility: [facility] - Location: [facility] Ordered By: Cayden Carrillo Primary Care Provider: Kannan Garcia Referrals: Kannan Garcia MD [Primary Care Provider] - 3-5 Days if not improving Disposition Disposition: Home, Self Care
[2021-11-28] MEDS: Ibuprofen 400 MG Tablet 800 MG PO (19:52)
--- NOTE | 2021-11-28 20:11 | RAD_ITS ---
STUDY: RIGHT ELBOW X-RAY SERIES OF 2008 HOURS ON 11/20 11/20 8 REASON FOR EXAM: 70-year-old female with right elbow pain. TECHNIQUE: 3 view(s) of the elbow. COMPARISON: None. FINDINGS: There are no fractures or dislocations. No osseous lytic, sclerotic, or mass lesions are evident. There is a minimal dorsal calcific tendinitis. There is no joint effusion. The surrounding soft tissues are otherwise without abnormality. RAD/Elbow min 3 Views IMPRESSION: 1. Minimal dorsal calcific tendinitis. 2. No fractures or dislocations. 3. No joint effusion. 4. No other arthritic or degenerative changes. Electronically Signed: Hroacio Zhang MD at 20:42 EDT ,
== END 2021-11-28 22:10 | disposition home or self-care (01) ==
PROVIDERS: Emergency Provider Emergency Medicine; PCP Internal Medicine; Visit Provider Emergency Medicine
DX: M70.21 Olecranon bursitis, right elbow (principal); M06.9 Rheumatoid arthritis, unspecified; I11.0 Hypertensive heart disease with heart failure; I50.32 Chronic diastolic (congestive) heart failure; G40.909 Epilepsy, unspecified, not intractable, without status epilepticus; E11.9 Type 2 diabetes mellitus without complications; M65.231 Calcific tendinitis, right forearm; E78.00 Pure hypercholesterolemia, unspecified; I25.10 Atherosclerotic heart disease of native coronary artery without angina pectoris; G47.33 Obstructive sleep apnea (adult) (pediatric); E66.9 Obesity, unspecified; Z79.01 Long term (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 of anticoagulants; Z79.82 Long term (current) use of aspirin; Z79.84 Long term (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 of oral hypoglycemic drugs; Z79.899 Other long term (current) drug therapy; Z95.5 Presence of coronary angioplasty implant and graft
CPT/HCPCS: 73080; 99283

== ENCOUNTER → 2021-11-29 | Outpatient (CLI) | payer MEDICARE, SELFPAY ==
[2020-12-31 12:33] VITALS: BMI 32.7
--- NOTE | 2021-11-29 13:42 | VDUE_ITS ---
Reason For Study: PAIN Right Proximal Right jugular vein is spontaneous, widely patent, phasic, with no intraluminal echogenicity noted. Right subclavian vein is spontaneous, widely patent, phasic, with no intraluminal echogenicity noted. Right Lower Arm Right radial vein is compressible. Right ulnar vein is compressible. Right Arm Right axillary vein is spontaneous, patent, phasic, competent, compressible and demonstrates augmentation. Right brachial vein is compressible. Right cephalic vein is compressible. Right basilic vein is compressible. VL/Venous Duplex US, Unilateral Interpretation Summary No evidence for acute deep venous thrombosis[right] upper extremity with patent and compressible cephalic and basilic veins. Ordering Physician: Cayden Carrillo Referring Physician: Kannan Garcia Performed By: Wendi Limon, YUMIKO, RVT ?
== END | disposition home or self-care (01) ==
LOC: CVS 13:41
PROVIDERS: PCP Internal Medicine; Referring Provider Emergency Medicine; Visit Provider Emergency Medicine
DX: M79.601 Pain in right arm (principal)
CPT/HCPCS: 93971

== ENCOUNTER → 2021-12-12 | Outpatient (CLI) | payer MEDICARE, SELFPAY ==
[2020-12-31 12:33] VITALS: BMI 32.7
--- NOTE | 2021-12-12 07:26 | BI_ITS ---
MAMMOGRAPHY - BILATERAL SCREENING REASON FOR EXAM: Female, 71 years old. Routine annual screening examination. PERTINENT HISTORY: Non-contributory. TECHNIQUE: Digital bilateral breast paul (3D mammographic acquisition) in the CC and MLO projections. 2-D mediolateral oblique (MLO) and craniocaudad (CC) views of both breasts were obtained. CAD: Full Field Digital Mammography with Computer Added Detection was performed. COMPARISON: Comparison is made with prior study dated 10/05/2020 and 06/02/2019. FINDINGS: Breast Composition: The breasts are almost entirely fatty. There are no dominant masses or suspicious calcifications. Stable small bilateral axillary lymph nodes. Stable bilateral calcified breast nodules. No other significant abnormalities are identified. There has been no significant change since the prior study. BI/SCRN MAMM (CAD)W/PAUL BILAT IMPRESSION: Stable bilateral screening mammogram. Yearly follow-up mammogram recommended. (A) ASSESSMENT CATEGORY: BIRADS Category 2: Benign. A letter regarding these results will be sent to the patient by the facility within 30 days. Approximately 10% of breast cancers are not detected by mammography. A normal mammogram should not delay biopsy of a clinically suspicious abnormality. [id number] Electronically Signed: Tor Artis MD at 8:17 EDT ,
== END | disposition home or self-care (01) ==
LOC: OPBI 07:25
PROVIDERS: PCP Internal Medicine; Visit Provider Internal Medicine
DX: Z12.31 Encounter for screening mammogram for malignant neoplasm of breast (principal)
CPT/HCPCS: 77063; 77067

== ENCOUNTER 2021-12-17 03:51 | Emergency (ER) | payer MEDICARE, SELFPAY ==
[2020-12-31 12:33] VITALS: BMI 32.7
[2021-12-17 03:52] VITALS: BP 163/79; PULSE 102; RESP 18; TEMP 36.6; O2SAT 100; BMI 31.0
--- NOTE | 2021-12-17 04:03 | RAD_ITS ---
STUDY: X-RAY CHEST REASON FOR EXAM: Female, 71 years old. Cough TECHNIQUE: Single AP portable view of the chest. COMPARISON: 10/25/2021 FINDINGS: The lungs are clear and expanded. There is no demonstrated pleural abnormality. Normal size heart. Normal mediastinum and allie. Normal visualized pulmonary arteries. Normal visualized aortic arch and descending thoracic aorta. There is no demonstrated abnormality of the visualized soft tissue structures of the upper abdomen. RAD/Chest 1 View (Portable) IMPRESSION: No acute abnormal cardiopulmonary finding. Electronically Signed: Newton Reinoso MD at 4:52 EDT ,
--- NOTE | 2021-12-17 04:04 | EX.ED.DYSGE1 ---
HPI History of Present Illness Chief Complaint: General Illness Informant: patient Narrative Narrative: Patient complains of malaise some fevers to about 100 and sore throat. She states she has coughed a couple times but does not feel short of breath. She is not having chest pain. She has no dysuria but might be urinating just a little bit more frequently than normal. She just wants to make sure she does not have COVID because she supposed to be with people over the next few days. She has had 2 vaccines and one booster. She was around a lot of people before this started. For symptoms were about 4 days ago maybe 3 days ago. She is eating and drinking despite very mild nausea but no vomiting. She had 1 soft bowel movement originally but that is gone. No chest pain or abdominal pain. [facility] Medical History Abdominal pain Acute back pain Anemia Arthritis Atherosclerotic heart disease of [place] coronary artery without angina pectoris Cardiology follow-up encounter Chronic diastolic CHF (congestive heart failure) Colon cancer screening Compression fracture of lumbar spine, non-traumatic Congestive heart failure (CHF) Conversion disorder CPAP (continuous positive airway pressure) dependence Diabetes Diabetes mellitus type 2 in nonobese Diabetes type 2, controlled Dysuria Dysuria Essential (primary) hypertension Foreign body in stomach GERD (gastroesophageal reflux disease) Health care maintenance High cholesterol History of echocardiogram History of stress test Hives Hyperglycemia due to type 2 diabetes mellitus Hyperlipidemia Hypertension Non-smoker Non-toxic goiter Obesity Obstructive sleep apnea Osteoarthritis Osteoporosis Personal history of colonic polyps Rheumatoid arthritis RIGHT FOOT HEEL SPUR Right shoulder pain Routine health maintenance Seasonal allergies Seizure disorder Seizures Shortness of breath on exertion Sleep apnea Therapeutic drug monitoring Type 2 diabetes mellitus Urinary frequency Urinary frequency Wears glasses Home Medications multivitamin 1 tab PO DAILY vitamin 05/20/19 [History Last Taken 02/05/21] hydroxychloroquine 200 mg tablet 200 mg PO BIDCM arthritis 11/20/19 [History Last Taken 02/05/21] blood-glucose meter (True Metrix Air Glucose Meter kit) #1 ea 02/03/20 [Rx Last Taken Unknown] calcium citrate 200 mg (950 mg) tablet 200 mg PO BID 05/21/20 [History Last Taken 02/05/21] disability placard #1 ea 06/27/20 [Rx Last Taken Unknown] aspirin 81 mg tablet,delayed release (Adult Low Dose Aspirin) 81 mg PO DAILY 08/13/20 [History Last Taken 02/05/21] lansoprazole 30 mg capsule,delayed release 30 mg PO DAILY #60 caps 08/20/20 [Rx Last Taken 02/05/21] duloxetine 30 mg capsule,delayed release 30 mg PO DAILY #60 caps 03/01/21 [Rx Last Taken Unknown] sitagliptin 100 mg tablet 100 mg PO DAILY diabetes #90 tabs 05/02/21 [Rx Last Taken Unknown] guaifenesin 400 mg tablet 400 mg PO TID PRN congestion, cough #30 tabs 06/03/21 [Rx Last Taken Unknown] atorvastatin 80 mg tablet 80 mg PO QHS #90 tabs 07/02/21 [Rx Last Taken Unknown] carvedilol 12.5 mg tablet 12.5 mg PO BID #180 tabs 07/02/21 [Rx Last Taken Unknown] clopidogrel 75 mg tablet 75 mg PO DAILY #90 tabs 07/02/21 [Rx Last Taken Unknown] glimepiride 4 mg tablet 4 mg PO QAM #90 tabs 07/02/21 [Rx Last Taken Unknown] isosorbide mononitrate 30 mg tablet,extended release 24 hr 30 mg PO DAILY #90 tabs 07/02/21 [Rx Last Taken Unknown] losartan 50 mg tablet 50 mg PO BID #180 tabs 07/02/21 [Rx Last Taken Unknown] blood sugar diagnostic (True Metrix Glucose Test Strip) #100 ea 07/17/21 [Rx Last Taken Unknown] divalproex 250 mg tablet,extended release 24 hr 250 mg PO DAILY #30 tabs 10/17/21 [Rx Last Taken Unknown] divalproex 500 mg tablet,extended release 24 hr 1,000 mg PO DAILY #60 tabs 10/17/21 [Rx Last Taken Unknown] tramadol 50 mg tablet (Ultram) 50 mg PO Q6H PRN pain 3 days #12 tabs 11/28/21 [Rx Last Taken Unknown] Allergy/AdvReac Type Severity Reaction Status Date / Time prednisone AdvReac Nausea Verified 11/28/21 19:36 Family History Grandmother Alcoholism Cancer Arthritis Mother Alcoholism Diabetes blood clots Hypertension Grandfather Heart disease Sister Thyroid disorder Other Breast cancer Cervical cancer Colon cancer Surgical History H/O: hysterectomy History of cardiac catheterization History of carpal tunnel surgery History of section History of coronary artery stent placement (03/22/18) History of left heart catheterization (09/20/18) Social History Smoking Status: Never smoker second hand exposure: No alcohol intake: current alcohol intake frequency: holidays/special occasions only substance use type: does not use what type of physical activity do you participate in: none ROS ROS ED Constitutional Constitutional ED: Reports subjective Eyes Eyes: Denies change in vision ENT ENT ED: Reports rhinorrhea and sore throat Cardiovascular Cardiovascular: Denies chest pain, orthopnea, palpitations or paroxysmal nocturnal dyspnea Respiratory/Chest Respiratory/Chest: Reports cough; Denies dyspnea, dyspnea on exertion, orthopnea or paroxysmal nocturnal dyspnea Gastrointestinal Gastrointestinal: Reports diarrhea and nausea; Denies abdominal pain, constipation, melena or vomiting Genitourinary Genitourinary ED: Reports urinary frequency; Denies dysuria or hematuria Musculoskeletal Musculoskeletal: Reports myalgias Integumentary Denies rash Neurologic Neurologic: Denies headache(s) Endocrine Endocrinology: Reports polyuria; Denies polydipsia Hematologic/Lymphatic Hematologic/Lymphatic: Denies anemia, easy bleeding or easy bruising Allergic/Immunologic Allergic/Immunologic ED: Denies urticaria EXAM Physical Exam Const Vital Signs: 12/17/21 03:52 12/17/21 03:55 Temperature 97.8 F Temperature Source Temporal Pulse Rate 102 H Respiratory Rate 18 Respiratory Effort Normal Non-Labored Respiratory Pattern Normal Blood Pressure 163/79 H Blood Pressure Mean 107 Pulse Ox 100 Oxygen Delivery Method Room Air Positive well nourished and well developed General Appearance ED: well developed and NAD; Negative for pallor HEENT Reports moist mucous membranes HEENT Narrative: Pharynx is a little bit red. But there is no enlarged tonsils. There is no exudate. Voice is normal. Mild postnasal drip. No sign of bleeding. No sinus tenderness. Eyes General Eye ED: Negative for scleral icterus Neck No no lymphadenopathy and no JVD Resp normal respiratory effort and clear to auscultation bilaterally Resp Narrative: No coughing. Saturations are 100% on room air with good waveform while I am in the room Auscultation: Negative for rales, rhonchi or wheezes Cardio regular rate and regular rhythm GI normal to inspection, nondistended, normoactive bowel sounds, non-tender and non-distended Back/Spine no CVA tenderness Extremity General Extremety ED: Negative for tenderness Neuro oriented x3 Psych mental status grossly normal Skin no rashes or lesions noted General Skin Exam: Negative for jaundice or pallor MDM MDM MDM Narrative Medical decision making narrative: Patient's urine is normal. Chest x-ray looked at by me and read by radiology as normal. She is negative for strep, flu and COVID. Patient is comfortable going home. She just wanted to make sure she did which were her biggest concerns. We explained home care and reasons to return. Lab Data Attestation: I reviewed the patient's lab results. Labs: Laboratory Results - last 24 hr 12/17/21 04:07 Urine Color Yellow Urine Clarity Clear Urine pH 8.0 Ur Specific Champion 1.015 Urine Protein Negative Urine Glucose (UA) Normal Urine Ketones Negative Urine Occult Blood Negative Urine Nitrite Negative Urine Bilirubin Negative Urine Urobilinogen 1 H Ur Leukocyte Esterase 100 H Urine RBC 0 SEEN Urine WBC 0-5 SEEN Ur Squamous Epith Cells 0-5 SEEN Urine Bacteria 1+ Urine Mucus RARE Radiography Diagnostic Testing: Clinical Impression(s) from Imaging Studies Chest X-Ray 12/17/21 04:03 IMPRESSION: No acute abnormal cardiopulmonary finding. Electronically Signed: Newton Reinoso MD at 4:52 EDT Reading Location ID and State: [address] [place] [address] Tel , Service support , Discharge Plan Triage Chief Complaint: General Illness ED Provider: Ritesh Maldonado Dx/Rx/DC Orders Clinical Impression: Pharyngitis, Acute viral syndrome Instructions: ED Pharyngitis, Report Pending, ED Viral Syndrome (Adult) Prescriptions: No Action multivitamin Tablet 1 tab PO DAILY calcium citrate 200 mg (950 mg) tablet 200 mg PO BID aspirin [Adult Low Dose Aspirin] 81 mg tablet,delayed release (DR/EC) 81 mg PO DAILY duloxetine 30 mg capsule,delayed release(DR/EC) 30 mg PO DAILY Qty: 60 0RF guaifenesin 400 mg tablet 400 mg PO TID PRN (Reason: congestion, cough) Qty: 30 0RF divalproex 250 mg tablet extended release 24 hr 250 mg PO DAILY Qty: 30 3RF Rx Instructions: Take with two tabs of divalproex ER 500mg for a total dose of 1250mg once daily divalproex 500 mg tablet extended release 24 hr 1,000 mg PO DAILY Qty: 60 3RF Rx Instructions: Take with divalproex ER 250mg for a total dose of 1250mg once daily hydroxychloroquine 200 MG tablet 200 mg PO BIDCM tramadol [Ultram] 50 mg tablet 50 mg PO Q6H PRN (Reason: pain) 3 Days Qty: 12 0RF (DME) blood-glucose meter [True Metrix Air Glucose Meter] Kit See Rx Instructions .ROUTE .MEDSUPPLY Qty: 1 0RF Rx Instructions: As directed (DME) disability placard See Rx Instructions .ROUTE .MEDSUPPLY Qty: 1 0RF Rx Instructions: As directed, Length of time: 5 years lansoprazole 30 mg capsule,delayed release(DR/EC) 30 mg PO DAILY Qty: 60 1RF sitagliptin 100 mg tablet 100 mg PO DAILY Qty: 90 3RF glimepiride 4 mg tablet 4 mg PO QAM Qty: 90 0RF Rx Instructions: administer with breakfast losartan 50 mg tablet 50 mg PO BID Qty: 180 3RF carvedilol 12.5 mg tablet 12.5 mg PO BID Qty: 180 3RF clopidogrel 75 mg tablet 75 mg PO DAILY Qty: 90 3RF isosorbide mononitrate 30 mg tablet extended release 24 hr 30 mg PO DAILY Qty: 90 3RF atorvastatin 80 mg tablet 80 mg PO QHS Qty: 90 3RF (DME) True Metrix Glucose Test Strip Strip See Rx Instructions .ROUTE .MEDSUPPLY Qty: 100 3RF Rx Instructions: check twice a day and as needed Primary Care Provider: Kannan Garcia Referrals: Kannan Garcia MD [Primary Care Provider] - 3-5 Days if not improving Disposition Disposition: Home, Self Care
[2021-12-17 04:18] LABS: Red Blood Cells-Urine 0 SEEN /hpf (0-5)
[2021-12-17 04:19] LABS: Color, Urine Yellow (Yellow); Glucose, Dipstick Normal (Normal); Ketone-Dipstick Negative (Negative); Leukocyte Esterase-Dipstick 100 /ul (Negative); Nitrite-Dipstick Negative (Negative); Occult Blood-Urine Negative /ul (Negative); Protein-Dipstick Negative (Negative); Specific Gravity, Urine 1.015 (1.002-1.030); Urine Bilirubin Dipstick Negative (Negative); Urine Clarity Clear (Clear); Urine Urobilinogen 1 mg/dl (Normal)
[2021-12-17 04:25] LABS: Bacteria 1+ /hpf (None Seen); Mucous, Urine RARE /hpf (<or=2+); Squamous Epithelial Cells - UA 0-5 SEEN /hpf (5-10); White Blood Cells 0-5 SEEN /hpf (0-5)
[2021-12-17 05:21] VITALS: BP 154/62; PULSE 97; RESP 18; O2SAT 98
== END 2021-12-17 05:21 | disposition home or self-care (01) ==
PROVIDERS: Emergency Provider Emergency Medicine; PCP Internal Medicine; Visit Provider Emergency Medicine
DX: J02.9 Acute pharyngitis, unspecified (principal); B34.9 Viral infection, unspecified; R19.7 Diarrhea, unspecified; R11.0 Nausea; R35.0 Frequency of micturition; Z20.822 Contact with and (suspected) exposure to COVID-19; I11.0 Hypertensive heart disease with heart failure; I50.32 Chronic diastolic (congestive) heart failure; I25.10 Atherosclerotic heart disease of native coronary artery without angina pectoris; G40.909 Epilepsy, unspecified, not intractable, without status epilepticus; E11.9 Type 2 diabetes mellitus without complications; E78.00 Pure hypercholesterolemia, unspecified; K21.9 Gastro-esophageal reflux disease without esophagitis; G47.33 Obstructive sleep apnea (adult) (pediatric); E66.9 Obesity, unspecified; Z79.82 Long term (current) use of aspirin; Z79.02 Long term (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 of antithrombotics/antiplatelets; Z79.84 Long term (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 of oral hypoglycemic drugs; Z79.899 Other long term (current) drug therapy; Z95.5 Presence of coronary angioplasty implant and graft
CPT/HCPCS: 71045; 81001; 87428; 87880; 99283

== ENCOUNTER 2022-01-02 07:58 | Observation (INO) | payer MEDICARE, SELFPAY ==
[2020-12-31 12:33] VITALS: BMI 32.7
[2022-01-02] VITALS (15 sets, daily range): BP systolic 130–171; BP diastolic 65–88; PULSE 77–102; RESP 14–20; TEMP 36.1–36.5; O2SAT 97–100; BMI 32.6; BMI 32.7
--- NOTE | 2022-01-02 08:06 | EKG12_ITS ---
Test Reason : CP Blood Pressure : / mmHG Vent. Rate : 092 BPM Atrial Rate : 092 BPM P-R Int : 144 ms QRS Dur : 080 ms QT Int : 362 ms P-R-T Axes : 059 009 026 degrees QTc Int : 447 ms Normal sinus rhythm Normal ECG Confirmed by NORAH ZUNIGA, JAMILA ([id number]), medical editor CLAUDIA HECTOR ([id number]) on 01/03/2022 2:10:57 PM Referred By: KYMBERLY Confirmed By:DONALD ALMAZAN MD
--- NOTE | 2022-01-02 08:07 | ED.VIS.CHEST ---
HPI History of Present Illness Chief Complaint: Chest Pain Detail of Chief Complaint: Chest pain that started this morning Informant: patient Onset/Context/Timing Current Severity: 02/10 Worsened By: Breathing Narrative Narrative: Patient presents to the emergency department complaint of chest discomfort that started this morning suddenly. Patient states that she had gone to the kitchen and started having severe pain was coming from the left side of her neck down her left shoulder and into her chest. Patient called EMS. Patient states pain worse with certain movements and breathing. She is never had pain like this before. She rates the pain a 10 out of 10. She describes it as sharp. She describes a mild nausea and some mild shortness of breath. Patient has history of prior heart stent. She denies recent travel or surgery. She had recent cold but states that is feeling improved and she tested negative for COVID-19. Prior Similar Symptoms: No PFSH PFSH Medical History (Updated 01/02/22 @ 10:[address] Turner Armendariz, DO) Abdominal pain Acute back pain Anemia Arthritis Atherosclerotic heart disease of [place] coronary artery without angina pectoris Cardiology follow-up encounter Chronic diastolic CHF (congestive heart failure) Colon cancer screening Compression fracture of lumbar spine, non-traumatic Congestive heart failure (CHF) Conversion disorder Cough CPAP (continuous positive airway pressure) dependence Diabetes Diabetes mellitus type 2 in nonobese Diabetes type 2, controlled Dysuria Dysuria Essential (primary) hypertension Foreign body in stomach GERD (gastroesophageal reflux disease) Health care maintenance High cholesterol History of echocardiogram History of stress test Hives Hyperglycemia due to type 2 diabetes mellitus Hyperlipidemia Hypertension Non-smoker Non-toxic goiter Obesity Obstructive sleep apnea Osteoarthritis Osteoporosis Personal history of colonic polyps Rheumatoid arthritis RIGHT FOOT HEEL SPUR Right shoulder pain Routine health maintenance Seasonal allergies Seizure disorder Seizures Shortness of breath on exertion Sleep apnea Therapeutic drug monitoring Type 2 diabetes mellitus Urinary frequency Urinary frequency Wears glasses Home Medications multivitamin 1 tab PO DAILY vitamin 05/20/19 [History Last Taken 02/05/21] hydroxychloroquine 200 mg tablet 200 mg PO BIDCM arthritis 11/20/19 [History Last Taken 02/05/21] blood-glucose meter (True Metrix Air Glucose Meter kit) #1 ea 02/03/20 [Rx Last Taken Unknown] calcium citrate 200 mg (950 mg) tablet 200 mg PO BID 05/21/20 [History Last Taken 02/05/21] disability placard #1 ea 06/27/20 [Rx Last Taken Unknown] aspirin 81 mg tablet,delayed release (Adult Low Dose Aspirin) 81 mg PO DAILY 08/13/20 [History Last Taken 02/05/21] lansoprazole 30 mg capsule,delayed release 30 mg PO DAILY #60 caps 08/20/20 [Rx Last Taken 02/05/21] duloxetine 30 mg capsule,delayed release 30 mg PO DAILY #60 caps 03/01/21 [Rx Last Taken Unknown] sitagliptin 100 mg tablet 100 mg PO DAILY diabetes #90 tabs 05/02/21 [Rx Last Taken Unknown] guaifenesin 400 mg tablet 400 mg PO TID PRN congestion, cough #30 tabs 06/03/21 [Rx Last Taken Unknown] atorvastatin 80 mg tablet 80 mg PO QHS #90 tabs 07/02/21 [Rx Last Taken Unknown] carvedilol 12.5 mg tablet 12.5 mg PO BID #180 tabs 07/02/21 [Rx Last Taken Unknown] clopidogrel 75 mg tablet 75 mg PO DAILY #90 tabs 07/02/21 [Rx Last Taken Unknown] glimepiride 4 mg tablet 4 mg PO QAM #90 tabs 07/02/21 [Rx Last Taken Unknown] isosorbide mononitrate 30 mg tablet,extended release 24 hr 30 mg PO DAILY #90 tabs 07/02/21 [Rx Last Taken Unknown] losartan 50 mg tablet 50 mg PO BID #180 tabs 07/02/21 [Rx Last Taken Unknown] blood sugar diagnostic (True Metrix Glucose Test Strip) #100 ea 07/17/21 [Rx Last Taken Unknown] divalproex 250 mg tablet,extended release 24 hr 250 mg PO DAILY #30 tabs 10/17/21 [Rx Last Taken Unknown] divalproex 500 mg tablet,extended release 24 hr 1,000 mg PO DAILY #60 tabs 10/17/21 [Rx Last Taken Unknown] tramadol 50 mg tablet (Ultram) 50 mg PO Q6H PRN pain 3 days #12 tabs 11/28/21 [Rx Last Taken Unknown] benzonatate 100 mg capsule 100 mg PO BID-TID PRN cough #90 caps 12/23/21 [Rx Last Taken Unknown] Allergy/AdvReac Type Severity Reaction Status Date / Time prednisone AdvReac Nausea Verified 01/02/22 08:03 Family History Grandmother Alcoholism Cancer Arthritis Mother Alcoholism Diabetes blood clots Hypertension Grandfather Heart disease Sister Thyroid disorder Other Breast cancer Cervical cancer Colon cancer Surgical History H/O: hysterectomy History of cardiac catheterization History of carpal tunnel surgery History of section History of coronary artery stent placement (03/22/18) History of left heart catheterization (09/20/18) Social History Smoking Status: Never smoker second hand exposure: No alcohol intake: current alcohol intake frequency: holidays/special occasions only substance use type: does not use what type of physical activity do you participate in: none ROS ROS ED Review of Systems ROS Unobtainable: other Constitutional Constitutional ED: Reports lethargy; Denies chills, fever(s), sweats or weight loss Eyes Eyes: Denies blurry vision, change in vision or diplopia ENT ENT ED: Denies rhinorrhea or sore throat Cardiovascular Cardiovascular: Reports chest pain; Denies orthopnea or racing heartbeat Respiratory/Chest Respiratory/Chest: Reports dyspnea; Denies cough, dyspnea on exertion, orthopnea or sputum Gastrointestinal Gastrointestinal: Denies abdominal pain, diarrhea, nausea or vomiting Genitourinary Genitourinary ED: Denies dysuria, hematuria or urinary frequency Musculoskeletal Musculoskeletal: Reports neck pain; Denies arthralgias, back pain or myalgias Integumentary Denies abscess, Abrasions or rash Neurologic Neurologic: Reports headache(s); Denies weakness Psychiatric Psychiatric: Denies anxiety, depression or suicidal thoughts Endocrine Endocrinology: Denies polydipsia, polyphagia or polyuria Hematologic/Lymphatic Hematologic/Lymphatic: Denies easy bleeding, easy bruising or lymphadenopathy Allergic/Immunologic Allergic/Immunologic ED: Denies mouth swelling, tongue swelling or urticaria EXAM Physical Exam Const Vital Signs: 01/02/22 08:01 01/02/22 08:22 01/02/22 08:24 Temperature 97.7 F L Temperature Source Oral Pulse Rate 90 97 Respiratory Rate 14 Blood Pressure 171/88 H 145/79 H Blood Pressure Mean 115 Pulse Ox 100 100 Oxygen Delivery Method Room Air Room Air 01/02/22 08:28 01/02/22 08:33 01/02/22 08:38 Temperature Temperature Source Pulse Rate 102 H 98 95 Respiratory Rate 17 Blood Pressure 143/84 H 130/84 H 150/80 H Blood Pressure Mean 103 Pulse Ox 100 Oxygen Delivery Method Room Air 01/02/22 09:45 Temperature Temperature Source Pulse Rate 94 Respiratory Rate 18 Blood Pressure 145/75 H Blood Pressure Mean 98 Pulse Ox 100 Oxygen Delivery Method Room Air Positive well nourished and well developed General Appearance ED: well developed and NAD HEENT Reports TM's clear and moist mucous membranes normocephalic and atraumatic; Negative for trauma or tenderness Tympanic Membrane ED: Yes TM's clear Eyes PERRL and EOMs intact bilaterally General Eye ED: Negative for pale conjunctiva or scleral icterus Neck no lymphadenopathy, supple and no JVD General: Negative for tenderness Chest Wall inspection of chest normal and palpation of chest normal Chest: Negative for tenderness Resp normal respiratory effort and clear to auscultation bilaterally Effort and Inspection: Negative for respiratory distress or pain with movement Auscultation: Negative for rhonchi, wheezes or diminished lung sounds Cardio regular rate, regular rhythm, S1 normal heart sound, S2 normal heart sound and no murmurs Peripheral Pulses: pulses 2+ throughout GI normal to inspection, nondistended, normoactive bowel sounds, soft to palpation, non-tender, non-distended and no masses Back/Spine no CVA tenderness and no thoracic nor lumbar tenderness Back/Spine Narrative: Patient has tenderness palpation over left trapezius however she states this pain is different than she was feeling. Extremity normal to inspection General Extremety ED: Negative for edema General Extremity: Negative for edema Neuro oriented x3, CN's II-XII intact bilaterally, no sensory deficits noted and gait normal Sensorium / Orientation: awake, alert, oriented to person, oriented to place and oriented to time Motor Exam: strength 5/5 throughout and strength abnormal Psych mental status grossly normal Skin no rashes or lesions noted and no wounds Heart Score History: Moderately Suspicious ECG: Normal Age: >/= 65 years Risk Factors: >/= 3 Risk Factors or History of CAD Troponin: </= Normal Limit Score: 5 MDM MDM MDM Narrative Medical decision making narrative: Established on arrival. Patient was given aspirin and sublingual nitro which minimally helped her discomfort. She was given morphine 4 mg IV and Zofran 4 mg IV. She continued complaint of severe pain and was given 4 more milligrams of morphine. Lab work-up showed a normal WBC count and chemistries. Her troponin was normal. D-dimer was 0.57 and considered normal when corrected for age. Delta troponin also was normal. I did do a CTA of her head and neck given the sudden onset of pain to rule out carotid dissection and this was unremarkable for carotid dissection and did show some mild stenosis. Patient continues to complain of pain in her neck and arm as well as chest and etiology is unclear. We will discussed with hospitalist to evaluate for admission. I suspect the pain could be radiculopathic. Lab Data Attestation: I reviewed the patient's lab results. Labs: Laboratory Results - last 24 hr 01/02/22 01/02/22 01/02/22 08:05 08:05 08:05 WBC 6.1 RBC 3.91 L Hgb 12.2 Hct 37.4 MCV 95.7 MCH 31.2 MCHC 32.6 RDW Std Deviation 47.2 H RDW Coeff of [place] 13.3 Plt Count 220 MPV 10.5 Immature Gran % (Auto) 0.300 Neut % (Auto) 54.4 Lymph % (Auto) 36.0 Stark % (Auto) 6.5 Eos % (Auto) 2.3 Baso % (Auto) 0.5 Absolute Neuts (auto) 3.3 Absolute Lymphs (auto) 2.21 Nucleated RBC % 0 D-Dimer Quant (PE/DVT) 0.57 H* Sodium 140 Potassium 4.3 Chloride 106 Carbon Dioxide 28.0 Anion Gap 6 BUN 20 H Creatinine 0.94 Estim Creat Clear Calc 44.67 Est GFR (MDRD) Af Amer 76 Est GFR (MDRD) Non-Af 62 BUN/Creatinine Ratio 21.2 H Glucose 136 H Calcium 9.1 Troponin I High Sens 5 01/02/22 10:15 WBC RBC Hgb Hct MCV MCH MCHC RDW Std Deviation RDW Coeff of [place] Plt Count MPV Immature Gran % (Auto) Neut % (Auto) Lymph % (Auto) Stark % (Auto) Eos % (Auto) Baso % (Auto) Absolute Neuts (auto) Absolute Lymphs (auto) Nucleated RBC % D-Dimer Quant (PE/DVT) Sodium Potassium Chloride Carbon Dioxide Anion Gap BUN Creatinine Estim Creat Clear Calc Est GFR (MDRD) Af Amer Est GFR (MDRD) Non-Af BUN/Creatinine Ratio Glucose Calcium Troponin I High Sens 6 Radiography Diagnostic Testing: Clinical Impression(s) from Imaging Studies Chest X-Ray 01/02/22 08:15 IMPRESSION: No acute abnormality is seen. Electronically Signed: Tor Artis MD at 8:26 EDT , Head/Neck CTA 01/02/22 09:12 IMPRESSION: Calcific plaque at the origin of the right internal carotid artery causing less than 50% stenosis. Calcific plaque and occlusion of the left internal carotid artery causing between 50 and 69% stenosis. Heterogeneous enlargement of the thyroid gland worse in the left lobe of the thyroid gland with the hypodense nodules and isthmus. Electronically Signed: Tor Artis MD at 9:59 EDT , 1 view chest x-ray obtained interpreted by myself no acute disease process. Radiology in agreement. EKG Initial EKG: Attestation: I personally reviewed and interpreted this EKG as follows: Comments: Sinus rhythm with a rate of 92 bpm with no acute ST segment changes Discharge Plan Triage Chief Complaint: Chest Pain ED Provider: Turner Armendariz Dx/Rx/DC Orders Clinical Impression: Chest pain, Neck pain, Intractable pain Prescriptions: No Action multivitamin Tablet 1 tab PO DAILY calcium citrate 200 mg (950 mg) tablet 200 mg PO BID aspirin [Adult Low Dose Aspirin] 81 mg tablet,delayed release (DR/EC) 81 mg PO DAILY duloxetine 30 mg capsule,delayed release(DR/EC) 30 mg PO DAILY Qty: 60 0RF guaifenesin 400 mg tablet 400 mg PO TID PRN (Reason: congestion, cough) Qty: 30 0RF divalproex 250 mg tablet extended release 24 hr 250 mg PO DAILY Qty: 30 3RF Rx Instructions: Take with two tabs of divalproex ER 500mg for a total dose of 1250mg once daily divalproex 500 mg tablet extended release 24 hr 1,000 mg PO DAILY Qty: 60 3RF Rx Instructions: Take with divalproex ER 250mg for a total dose of 1250mg once daily benzonatate 100 mg capsule 100 mg PO BID-TID PRN (Reason: cough) Qty: 90 1RF hydroxychloroquine 200 MG tablet 200 mg PO BIDCM tramadol [Ultram] 50 mg tablet 50 mg PO Q6H PRN (Reason: pain) 3 Days Qty: 12 0RF (DME) blood-glucose meter [True Metrix Air Glucose Meter] Kit See Rx Instructions .ROUTE .MEDSUPPLY Qty: 1 0RF Rx Instructions: As directed (DME) disability placard See Rx Instructions .ROUTE .MEDSUPPLY Qty: 1 0RF Rx Instructions: As directed, Length of time: 5 years lansoprazole 30 mg capsule,delayed release(DR/EC) 30 mg PO DAILY Qty: 60 1RF sitagliptin 100 mg tablet 100 mg PO DAILY Qty: 90 3RF glimepiride 4 mg tablet 4 mg PO QAM Qty: 90 0RF Rx Instructions: administer with breakfast losartan 50 mg tablet 50 mg PO BID Qty: 180 3RF carvedilol 12.5 mg tablet 12.5 mg PO BID Qty: 180 3RF clopidogrel 75 mg tablet 75 mg PO DAILY Qty: 90 3RF isosorbide mononitrate 30 mg tablet extended release 24 hr 30 mg PO DAILY Qty: 90 3RF atorvastatin 80 mg tablet 80 mg PO QHS Qty: 90 3RF (DME) True Metrix Glucose Test Strip Strip See Rx Instructions .ROUTE .MEDSUPPLY Qty: 100 3RF Rx Instructions: check twice a day and as needed Primary Care Provider: Kannan Garcia Referrals: Kannan Garcia MD [Primary Care Provider] - Disposition Disposition: Acute Care Hospital [facility]
[2022-01-02 08:13] LABS: Absolute Lymphocyte Count 2.21 X10^3/uL (0.83-4.51); Absolute Neutrophil Count 3.3 X10^3/uL (2.0-7.7); Basophil# 0.03 X10^3/uL; Basophil% 0.5 % (0-1); Eosinophil# 0.14 X10^3/uL; Eosinophils% 2.3 % (0-5); Hematocrit 37.4 % (37-47); Hemoglobin 12.2 g/dL (12.0-15.0); Lymphocyte # 2.21 X10^3/ul (0.83-4.51); Mean Corp Hgb Conc 32.6 g/dL (32-36); Mean Corpuscular Hgb 31.2 pg (27.0-32.0); Mean Corpuscular Volume 95.7 fL (81-99); Mean Platelet Vol. 10.5 fl (6.2-12.0); Monocyte% 6.5 % (0-10); NRBC Flagged by Analyzer 0 % (0-5); Neutrophil # 3.34 X10^3/uL (2.7-7.7); Neutrophil % 54.4 % (47-70); Platelet Count 220 K/mm3 (150-450); RBC Distribution Width CV 13.3 % (11.6-14.6); RBC Distribution Width SD 47.2 fl (35.1-43.9); Red Blood Count 3.91 M/mm3 (4.2-5.4); White Blood Count 6.1 K/mm3 (4.4-11.0)
--- NOTE | 2022-01-02 08:15 | RAD_ITS ---
STUDY: X-RAY CHEST REASON FOR EXAM: Female, 71 years old. Chest pain TECHNIQUE: Single AP portable view of the chest. COMPARISON: Comparison is made with prior study 12/17/2021. FINDINGS: EKG electrodes are seen. The lungs are clear and expanded. There is no demonstrated pleural abnormality. Normal size heart. Normal mediastinum and allie. Normal visualized pulmonary arteries. There is atherosclerotic calcification of the aortic arch with tortuosity. There are degenerative changes of the visualized thoracic spine. There is degenerative osteoarthritis of the bilateral shoulders. There is no demonstrated abnormality of the visualized soft tissue structures of the upper abdomen. RAD/Chest 1 View (Portable) IMPRESSION: No acute abnormality is seen. Electronically Signed: Tor Artis MD at 8:26 EDT ,
[2022-01-02] MEDS: Aspirin 81 MG TAB.CHEW 324 MG PO (08:21)
[2022-01-02] MEDS: Nitroglycerin SL (ED/IMG/CATH) 0.4 MG TABLET SL ×3 (08:22→08:33)
[2022-01-02] MEDS: 0.9% Normal Saline 1,000 ML 150 ML IV ×3 (08:29→20:18)
[2022-01-02 08:35] LABS: Anion Gap 6 (5-15); BUN 20 mg/dL (7-18); BUN/Creat Ratio 21.2 RATIO (10-20); Calcium,Total 9.1 mg/dL (8.5-10.1); Chloride 106 mmol/L (98-107); Creatinine, Serum 0.94 mg/dL (0.55-1.02); EST Glomerular Filtration Rate 62 mL/min (>60); Est Glom Filt Rate - Afr Amer 76 mL/min (>60); Estimated Creatinine Clearance 44.67 ml/min; Glucose 136 mg/dL (74-106); Potassium 4.3 mmol/L (3.5-5.1); Sodium Level 140 mmol/L (136-145); Troponin-I HS (w/2H Reflex) 5 pg/mL (3.0-54.0)
[2022-01-02 08:39] LABS: D-Dimer Quantitative (DVT/PE) 0.57 FEU/ug/m (0.27-0.49)
--- NOTE | 2022-01-02 09:12 | CT_ITS ---
STUDY: CTA HEAD AND NECK WITH CONTRAST REASON FOR EXAM: Female, 71 years old. Carotid dissection. Left arm and left-sided neck pain. Chest pain. RADIATION DOSAGE (If Supplied By Facility): CTDIvol = ( 28.04 ) mGy, DLP = ( 1395.64 ) mGycm TECHNIQUE: CT angiography was performed with a multi-detector CT scanner. Data acquisition was obtained from the skull base through the vertex following intravenous administration of IV 100mL [id number]. MIP images were reconstructed from the axial data set. Post-processing of the angiographic images was performed, with multiplanar reformation and 3D reconstruction. Individualized dose optimization techniques were used for this CT. COMPARISON: Comparison is made with prior examination dated 05/27/2019. FINDINGS: Normal bilateral petrous carotid arteries. There is calcified plaque formation of the right cavernous carotid artery, without a cross-sectional luminal stenosis. There is calcified plaque formation of the left cavernous carotid artery, without a cross-sectional luminal stenosis. Normal right A1 segments of the anterior cerebral artery. Normal left A1 segments of the anterior cerebral artery. Normal intact anterior communicating artery (ACOM). Normal bilateral A2 segments of the anterior cerebral arteries. Normal right M1 and M2 segments of the middle cerebral arteries, with a normal M1 bifurcation. Normal left M1 and M2 segments of the middle cerebral arteries, with a normal M1 bifurcation. There is a persistent origin of the right posterior cerebral artery with absence of the posterior communicating artery (PCOM). Normal left posterior communicating artery (PCOM). Normal bilateral vertebral arteries. Normal basilar artery with a normal basilar bifurcation. The visualized bilateral superior cerebellar (SCA) arteries are normal. Normal bilateral P1, P2 and visualized P3 segments of the posterior cerebral arteries. There is no demonstrated aneurysm of the [place]. Small punctate calcifications of the basal ganglia which are seen in the aging brain as a normal variant. This is unchanged. Hyperostosis frontalis interna AORTIC ARCH: There is atherosclerotic calcific plaque formation of the aortic arch and great vessels arising from the aortic arch, without a hemodynamically significant stenosis. There is a bovine origin of the great vessels with a common origin of the brachiocephalic and left common carotid artery. Normal origin of the left subclavian artery. Nonstenotic calcific plaque seen at the origin of the left subclavian artery. Diffuse heterogeneous enlargement of the thyroid gland more prominent involving the left lobe as well as the isthmus. There is evidence of a substernal extension on the left side. RIGHT CAROTID ARTERIES: There is mild atherosclerotic plaque formation of the common carotid artery, but without a hemodynamically significant stenosis. Normal right common carotid bulb. There is mild atherosclerotic plaque formation of the origin of the right internal carotid artery with less than 50% cross sectional diameter stenosis. Normal visualized cervical portion of the right internal carotid artery. Normal origin of the right external carotid artery (ECA). LEFT CAROTID ARTERIES: Normal left common carotid artery (CCA). Normal left common carotid bulb. There is moderate atherosclerotic plaque formation of the origin of the left internal carotid artery with an estimated stenosis of 50-69% stenosis. Normal visualized cervical portion of the left internal carotid artery. Normal origin of the left external carotid artery (ECA). VERTEBRAL ARTERIES: There is enhancement within the bilateral vertebral arteries with a small right vertebral artery, and a dominant left vertebral artery. CT/CTA Head AND Neck W/ Contrast IMPRESSION: Calcific plaque at the origin of the right internal carotid artery causing less than 50% stenosis. Calcific plaque and occlusion of the left internal carotid artery causing between 50 and 69% stenosis. Heterogeneous enlargement of the thyroid gland worse in the left lobe of the thyroid gland with the hypodense nodules and isthmus. Electronically Signed: Tor Artis MD at 9:59 EDT ,
[2022-01-02] MEDS: Ondansetron 4 MG/2 ML Vial IV (09:50)
[2022-01-02] MEDS: Morphine 4 MG/ML Syringe IV ×2 (09:50→11:04)
[2022-01-02 10:10] LABS: Reflex Troponin-HS? (from REC) Y
[2022-01-02 10:35] LABS: Troponin-I HS 6 pg/mL (3.0-54.0)
--- NOTE | 2022-01-02 11:09 | PCM.HP.STD ---
HPI - General General Date of Admission: 01/02/22 Date of Service: 01/02/22 Chief Complaint: Left sided chest pain, neck pain, left upper extremity pain - this morning HPI Narrative LACY ALVARADO, is a 71 F who presents sudden onset of left-sided chest pain, neck pain, left upper extremity pain. Patient stated that she was getting ready to go to work when she had sudden onset of chest pain that radiated down her left arm, worse with exertion. She has history of CAD status post stent in 2018. Patient denies any trauma. She does state that she has chronic neck pain, and the pain seems to be similar to chest pain and radiates down her left upper extremity. Pain is worse when she moves her left upper extremity up. Seem to be also referred to her neck. He denied any diaphoresis or shortness of breath. It is described as dull, achy. Vitals in ED showed blood pressure 171/88, heart rate 90, respiratory 14, temperature 97.7 F, oxygen saturation 100% on room air. Her admitting blood work was unremarkable, troponin 25.6. EKG shows normal sinus rhythm. Chest ray was unremarkable. CTA of the head and neck showed right internal carotid artery less than 50% stenosis, left internal carotid artery with 69% stenosis. FOR[facility]LY [facility], LATER [facility] Medical History Abdominal pain Acute back pain Anemia Arthritis Atherosclerotic heart disease of [place] coronary artery without angina pectoris Cardiology follow-up encounter Chronic diastolic CHF (congestive heart failure) Colon cancer screening Compression fracture of lumbar spine, non-traumatic Congestive heart failure (CHF) Conversion disorder Cough CPAP (continuous positive airway pressure) dependence Diabetes Diabetes mellitus type 2 in nonobese Diabetes type 2, controlled Dysuria Dysuria Essential (primary) hypertension Foreign body in stomach GERD (gastroesophageal reflux disease) Health care maintenance High cholesterol History of echocardiogram History of stress test Hives Hyperglycemia due to type 2 diabetes mellitus Hyperlipidemia Hypertension Non-smoker Non-toxic goiter Obesity Obstructive sleep apnea Osteoarthritis Osteoporosis Personal history of colonic polyps Rheumatoid arthritis RIGHT FOOT HEEL SPUR Right shoulder pain Routine health maintenance Seasonal allergies Seizure disorder Seizures Shortness of breath on exertion Sleep apnea Therapeutic drug monitoring Type 2 diabetes mellitus Urinary frequency Urinary frequency Wears glasses Home Medications multivitamin 1 tab PO DAILY vitamin 05/20/19 [History Last Taken 12/31/21] hydroxychloroquine 200 mg tablet 200 mg PO BIDCM arthritis 11/20/19 [History Last Taken 12/31/21] blood-glucose meter (True Metrix Air Glucose Meter kit) #1 ea 02/03/20 [Rx Last Taken Unknown] calcium citrate 200 mg (950 mg) tablet 200 mg PO BID supplement 05/21/20 [History Last Taken 12/31/21] disability placard #1 ea 06/27/20 [Rx Last Taken Unknown] aspirin 81 mg tablet,delayed release (Adult Low Dose Aspirin) 81 mg PO DAILY heart 08/13/20 [History Last Taken 12/31/21] sitagliptin 100 mg tablet 100 mg PO DAILY diabetes #90 tabs 05/02/21 [Rx Last Taken 12/31/21] blood sugar diagnostic (True Metrix Glucose Test Strip) #100 ea 07/17/21 [Rx Last Taken Unknown] benzonatate 100 mg capsule 100 mg PO BID-TID PRN cough #90 caps 12/23/21 [Rx Last Taken 12/31/21] atorvastatin 80 mg tablet 80 mg PO QHS cholesterol 01/02/22 [History Last Taken 12/31/21] carvedilol 12.5 mg tablet 12.5 mg PO BID heart rate 01/02/22 [History Last Taken 01/01/22] clopidogrel 75 mg tablet 75 mg PO DAILY heart 01/02/22 [History Last Taken 01/01/22] divalproex 250 mg tablet,extended release 24 hr 250 mg PO DAILY seziures 01/02/22 [History Last Taken 12/31/21] divalproex 500 mg tablet,extended release 24 hr 1,000 mg PO DAILY seizures 01/02/22 [History Last Taken 12/31/21] isosorbide mononitrate 30 mg tablet,extended release 24 hr 30 mg PO DAILY chest pain 01/02/22 [History Last Taken 12/31/21] losartan 50 mg tablet 50 mg PO BID blood pressure 01/02/22 [History Last Taken 12/31/21] Allergy/AdvReac Type Severity Reaction Status Date / Time prednisone AdvReac Nausea Verified 01/02/22 08:03 Family History Grandmother Alcoholism Cancer Arthritis Mother Alcoholism Diabetes blood clots Hypertension Grandfather Heart disease Sister Thyroid disorder Other Breast cancer Cervical cancer Colon cancer Surgical History H/O: hysterectomy History of cardiac catheterization History of carpal tunnel surgery History of section History of coronary artery stent placement (03/22/18) History of left heart catheterization (09/20/18) Social History Smoking Status: Never smoker second hand exposure: No alcohol intake: current alcohol intake frequency: holidays/special occasions only substance use type: does not use what type of physical activity do you participate in: none ROS ROS Narrative Constitutional: Reports: Malaise, Weakness, Fatigue. Denies: Anorexia, Chills, Fever, Night Sweats, Weight Change Eyes: Denies: Blurred vision, Cataracts, Conjunctivae Inflammation, Pain, Redness, Vision Change HEENT: Denies: Difficulty Hearing, Difficulty Swallowing, Head Aches, Hearing Changes, Sinus Congestion, Sinus Drainage Cardiovascular: Denies: Chest Pain, Orthopnea, Palpitations Respiratory: Denies: Cough, Shortness of breath at rest, Sputum production Gastrointestinal: Denies: Abdominal Pain, Nausea, Vomiting Genitourinary: Denies: Dysuria Musculoskeletal: Denies: Joint Pain, Joint stiffness, Joint swelling, Joint Tenderness Skin: Denies: Rash, Wounds Neurological: Denies: Numbness, Tingling, Focal weakness Vital Signs Vital Signs Vital Signs: 01/02/22 08:01 01/02/22 08:22 01/02/22 08:24 Temperature 97.7 F L Temperature Source Oral Pulse Rate 90 97 Respiratory Rate 14 Blood Pressure 171/88 H 145/79 H Blood Pressure Mean 115 Pulse Ox 100 100 Oxygen Delivery Method Room Air Room Air 01/02/22 08:28 01/02/22 08:33 01/02/22 08:38 Temperature Temperature Source Pulse Rate 102 H 98 95 Respiratory Rate 17 Blood Pressure 143/84 H 130/84 H 150/80 H Blood Pressure Mean 103 Pulse Ox 100 Oxygen Delivery Method Room Air 01/02/22 09:45 01/02/22 11:08 Temperature Temperature Source Pulse Rate 94 78 Respiratory Rate 18 20 H Blood Pressure 145/75 H 150/75 H Blood Pressure Mean 98 100 Pulse Ox 100 99 Oxygen Delivery Method Room Air Room Air Weight Weight: 81 kg Body Mass Index (BMI) 32.6 Physical Exam Narrative Physical exam: General: Alert, Oriented x3, Cooperative, in mild distress HEENT: Atraumatic Oral: Moist Mucosa Neck: Supple Lungs:Diminished to auscultation Cardiovascular: HS I+II, regular, no murmurs Abdomen: Bowel Sounds Present, Soft, Non Tender Extremities: No edema Skin: No rashes, No breakdown Neurological: Grossly intact Psych/Mental Status: Appropriate Results Lab / Micro Data Result Diagrams: 01/02/22 08:05 01/02/22 08:05 Labs: Laboratory Results - last 24 hr 01/02/22 08:05: WBC 6.1, RBC 3.91 L, Hgb 12.2, Hct 37.4, MCV 95.7, MCH 31.2, MCHC 32.6, RDW Std Deviation 47.2 H, RDW Coeff of [place] 13.3, Plt Count 220, MPV 10.5, Immature Gran % (Auto) 0.300, Neut % (Auto) 54.4, Lymph % (Auto) 36.0, [place] % (Auto) 6.5, Eos % (Auto) 2.3, Baso % (Auto) 0.5, Absolute Neuts (auto) 3.3, Absolute Lymphs (auto) 2.21, Nucleated RBC % 0 01/02/22 08:05: D-Dimer Quant (PE/DVT) 0.57 H* 01/02/22 08:05: Sodium 140, Potassium 4.3, Chloride 106, Carbon Dioxide 28.0, Anion Gap 6, BUN 20 H, Creatinine 0.94, Estim Creat Clear Calc 44.67, Est GFR (MDRD) Af Amer 76, Est GFR (MDRD) Non-Af 62, BUN/Creatinine Ratio 21.2 H, Glucose 136 H, Calcium 9.1, Troponin I High Sens 5 01/02/22 10:15: Troponin I High Sens 6 Radiology Impression Chest X-Ray 01/02/22 08:15 IMPRESSION: No acute abnormality is seen. Electronically Signed: Tor Artis MD at 8:26 EDT , Head/Neck CTA 01/02/22 09:12 IMPRESSION: Calcific plaque at the origin of the right internal carotid artery causing less than 50% stenosis. Calcific plaque and occlusion of the left internal carotid artery causing between 50 and 69% stenosis. Heterogeneous enlargement of the thyroid gland worse in the left lobe of the thyroid gland with the hypodense nodules and isthmus. Electronically Signed: Tor Artis MD at 9:59 EDT , Assessment & Plan Assessment/Plan (1) Chest pain: PLAN: Plan 1. Acute chest pain, likely musculoskeletal Patient with underlying history of CAD status post stent, last cardiac cath was in 2018 EKG did not show any acute ST-T changes Patient was started on Tylenol 1000 mg p.o. 3 times daily, oxycodone as needed 2. Acute on chronic neck pain, will get x-ray of the neck and left shoulder With full Lidoderm as needed, scheduled Tylenol, oxycodone as needed 3. Type II DM, on Januvia, will add insulin sliding scale with blood glucose checks 4. Hypertension/CAD s/p stent blood, stable Continue on Coreg, losartan, aspirin, Plavix, statin Will get stress test as patient's last stress test was 2018 5. Seizure disorder, continue valproic acid 6. DVT prophylaxis -heparin subcu Charges/Coding Visit Charges OBSV E&M: 33000 Initial observation care L3
[2022-01-02] MEDS: Acetaminophen 325 MG Tablet 650 MG PO (12:59)
--- NOTE | 2022-01-02 13:29 | RAD_ITS ---
STUDY: X-RAY - CERVICAL SPINE REASON FOR EXAM: Female, 71 years old. Neck pain TECHNIQUE: XR Spine Cervical 6 or More Views COMPARISON: None FINDINGS: Normal anterior atlantoaxial articulation. No acute findings of the odontoid process. There is straightening of the normal cervical lordosis. There is multi-level endplate spondylosis. There is multi-level degenerative disc disease with multilevel disc space narrowing. The soft tissue structures are unremarkable. RAD/Cerv Spine Obl/Flex/Ext Comp IMPRESSION: There are degenerative changes as noted above. Electronically Signed: Moody Staton MD at 17:00 EDT ,
[2022-01-02] MEDS: oxyCODONE 5 MG Tablet PO ×2 (13:43→20:19)
--- NOTE | 2022-01-02 14:00 | RAD_ITS ---
STUDY: XR Shoulder Min 2 Views REASON FOR EXAM: Female, 71 years old. Left shoulder pain TECHNIQUE: XR Shoulder Min 2 Views LEFT COMPARISON: None. FINDINGS: Normal glenohumeral articulation. Normal acromioclavicular joint. Normal acromion. Normal humeral head and visualized proximal humerus. The soft tissue structures are unremarkable. Normal visualized pulmonary apex. RAD/Shoulder min 2 Views IMPRESSION: There are no acute findings of the shoulder. Electronically Signed: Moody Staton MD at 17:00 EDT ,
--- NOTE | 2022-01-02 14:01 | EKG12_ITS ---
Test Reason : CP Blood Pressure : / mmHG Vent. Rate : 088 BPM Atrial Rate : 088 BPM P-R Int : 134 ms QRS Dur : 068 ms QT Int : 370 ms P-R-T Axes : 033 -02 006 degrees QTc Int : 447 ms Normal sinus rhythm Inferior infarct , age undetermined Cannot rule out Anterior infarct , age undetermined Abnormal ECG When compared with ECG of 02-JAN-2022 14:22, MANUAL COMPARISON REQUIRED, DATA IS UNCONFIRMED Confirmed by NORAH ZUNIGA, JAMILA ([id number]), story editor CLAUDIA HETCOR ([id number]) on 01/03/2022 2:18:02 PM Referred By: Confirmed By:DONALD ALMAZAN MD
[2022-01-02 15:12] LABS: Troponin-I HS 5 pg/mL (3.0-54.0)
[2022-01-02] MEDS: Hydroxychloroquine 200 MG Tablet PO (16:19)
[2022-01-02 16:40] LABS: Bedside Glucose 136 mg/dL (74-106)
[2022-01-02] MEDS: Losartan Potassium 50 MG Tablet PO (21:39)
[2022-01-02] MEDS: Carvedilol 12.5 MG Tablet PO (21:39)
[2022-01-02] MEDS: Atorvastatin Calcium 80 MG Tablet PO (21:40)
[2022-01-02] MEDS: Calcium Carbonate 500 MG Tablet PO (21:40)
[2022-01-02] MEDS: Acetaminophen 500 MG Tablet 1000 MG PO (21:41)
[2022-01-02] MEDS: Heparin Injection (Vial) 5,000 UNIT/ML VIAL 5000 UNIT SC (21:43)
[2022-01-02] MEDS: Insulin Lispro 100 UNIT/ML INSULN.PEN SC (21:59)
[2022-01-03 00:30] LABS: Bedside Glucose 182 mg/dL (74-106)
[2022-01-03 03:00] VITALS: PULSE 77
[2022-01-03 03:59] VITALS: BP 137/70; PULSE 81; RESP 16; TEMP 35.9; O2SAT 98
--- NOTE | 2022-01-03 05:55 | EKG12_ITS ---
Test Reason : CP Blood Pressure : / mmHG Vent. Rate : 073 BPM Atrial Rate : 073 BPM P-R Int : 120 ms QRS Dur : 078 ms QT Int : 402 ms P-R-T Axes : 053 004 023 degrees QTc Int : 442 ms Normal sinus rhythm Normal ECG When compared with ECG of 25-OCT-2021 14:19, No significant change was found Confirmed by NORAH ZUNIGA, JAMILA ([id number]), publishing editor CLAUDIA HECTOR ([id number]) on 01/03/2022 2:18:20 PM Referred By: Confirmed By:DONALD ALMAZAN MD
[2022-01-03 06:03] LABS: Absolute Lymphocyte Count 2.28 X10^3/uL (0.83-4.51); Absolute Neutrophil Count 2.2 X10^3/uL (2.0-7.7); Basophil# 0.03 X10^3/uL; Basophil% 0.6 % (0-1); Eosinophil# 0.15 X10^3/uL; Eosinophils% 3.1 % (0-5); Hematocrit 31.1 % (37-47); Hemoglobin 10.1 g/dL (12.0-15.0); Lymphocyte # 2.28 X10^3/ul (0.83-4.51); Lymphocyte % 46.4 % (19-41); Mean Corp Hgb Conc 32.5 g/dL (32-36); Mean Corpuscular Hgb 31.6 pg (27.0-32.0); Mean Corpuscular Volume 97.2 fL (81-99); Mean Platelet Vol. 10.8 fl (6.2-12.0); Monocyte# 0.24 X10^3/uL; Monocyte% 4.9 % (0-10); NRBC Flagged by Analyzer 0 % (0-5); Neutrophil % 44.8 % (47-70); Platelet Count 181 K/mm3 (150-450); RBC Distribution Width CV 13.4 % (11.6-14.6); RBC Distribution Width SD 48.3 fl (35.1-43.9); White Blood Count 4.9 K/mm3 (4.4-11.0)
[2022-01-03] MEDS: 0.9% Normal Saline 1,000 ML 150 ML IV (06:03)
[2022-01-03] MEDS: Aspirin E.C. 81 MG Tablet PO (06:04)
[2022-01-03] MEDS: Losartan Potassium 50 MG Tablet PO (06:04)
[2022-01-03] MEDS: Clopidogrel Bisulfate 75 MG Tablet PO (06:04)
[2022-01-03 06:32] VITALS: PULSE 87
[2022-01-03 06:40] LABS: ALB/GLOB Ratio 0.8 RATIO (0.9-2.4); AST(SGOT) 15 U/L (15-37); Alanine Aminotransfer ALT/SGPT 23 U/L (13-56); Albumin, Serum 2.6 g/dL (3.2-5.0); Alkaline Phosphatase 83 U/L (45-117); Anion Gap 5 (5-15); BUN 19 mg/dL (7-18); BUN/Creat Ratio 22.9 RATIO (10-20); Chloride 110 mmol/L (98-107); Creatinine, Serum 0.83 mg/dL (0.55-1.02); EST Glomerular Filtration Rate 73 mL/min (>60); Est Glom Filt Rate - Afr Amer 88 mL/min (>60); Estimated Creatinine Clearance 50.59 ml/min; Globulin 3.4 g/dL (2.2-4.2); Glucose 154 mg/dL (74-106); Potassium 3.8 mmol/L (3.5-5.1); Sodium Level 141 mmol/L (136-145)
[2022-01-03 08:41] LABS: Bedside Glucose 157 mg/dL (74-106)
[2022-01-03] MEDS: oxyCODONE 5 MG Tablet PO (08:52)
[2022-01-03] MEDS: Lidocaine 5% Patch 2 PATCH TOPICAL (08:53)
[2022-01-03 09:05] VITALS: BP 123/77; PULSE 77; RESP 18; TEMP 36.3; O2SAT 99
[2022-01-03 11:00] VITALS: PULSE 69
[2022-01-03 11:46] LABS: Bedside Glucose 107 mg/dL (74-106)
--- NOTE | 2022-01-03 11:54 | STRESSREP ---
Stress Test Report Date: [01/03/2022] Procedure: Exercise tolerance test/imaging study Indications: Chest pain Consent: Per the patient Procedure: The patient exercised on a [place] protocol for 6 minutes achieving a peak heart rate of 123 bpm (81% predicted maximal heart rate) with a peak blood pressure 142/82 mmHg and a peak MET capacity of 7 METs. The baseline ECG demonstrated normal sinus rhythm. The peak exercise ECG demonstrated no significant ischemic changes. EKG during recovery revealed no significant ischemic changes [There were no cardiac dysrhythmias pretest, during exercise, or recovery]. The functional capacity was considered normal for age. There was [no complaint of chest discomfort during exercise or recovery]. The examination was discontinued secondary to dyspnea, slight chest discomfort. Impression: 1. The sensitivity of the test is somewhat decreased as the patient reached only 81% of maximal age-predicted heart rate. 2. Stress test is negative for exercise-induced EKG changes of ischemia 3. The test test is positive for exercise-induced chest pain 4. Functional capacity is normal for age 5. Nuclear images pending Myocardial perfusion imaging study: Technique: The patient was injected with 14.1 mCi of technetium 99m Cardiolite and subsequently rest SPECT Cardiolite nuclear imaging was obtained in the horizontal long, vertical long, and short axis views. The patient exercised on a [place]on protocol. Please see above for details. The patient was injected with 44.6 mCi of technetium 99m Cardiolite and subsequently stress SPECT Cardiolite nuclear imaging was obtained in the horizontal long, vertical long, and short axis views. A gated Cardiolite study at peak stress was obtained. Interpretation: Rest and stress SPECT Cardiolite nuclear imaging status post realignment, normalization, and attenuation correction, demonstrates no evidence of significant ischemia or infarction. The gated Cardiolite study demonstrates no significant regional wall motion abnormalities. The reported LVEF is greater than 70%. Impression: 1. There is no evidence of significant ischemia or infarction. 2. The gated Cardiolite study reports an LVEF of greater than 70%. This note was generated with [facility] software. It may contain incorrect words, spelling, and punctuation that were not noted in checking the note before signing.
--- NOTE | 2022-01-03 13:11 | DCINST_ITS ---
Discharge Instructions Diet Discharge Diet: Low fat / Low cholesterol and 2000 mg Sodium Diet Activity Discharge Activity: Return to Normal Activity Follow Up Care Test Results: Test results from this visit will be discussed in further detail at your follow- up appointment, if applicable. Discharge Plan Admission Admit Date/Time: 01/02/22 11:05 Primary Reason for Your Visit: Chest pain Attending Provider: Kay Fernandez Primary Care Provider: Kannan Garcia Instructions Additional Instructions / Restrictions: You can take Tylenol as needed for pain. You can also use any topical analgesics such as [place] or Aspercreme to apply to affected areas for pain Discharge Orders/Prescriptions Prescriptions: New lidocaine 5 % Adhesive Patch,Medicated 2 patch topical DAILY 7 Days Qty: 14 0RF Protocol: *Topical Application Instructions APPLICATION INSTRUCTIONS: apply to posterior neck Continued multivitamin Tablet 1 tab PO DAILY calcium citrate 200 mg (950 mg) tablet 200 mg PO BID aspirin [Adult Low Dose Aspirin] 81 mg tablet,delayed release (DR/EC) 81 mg PO DAILY benzonatate 100 mg capsule 100 mg PO BID-TID PRN (Reason: cough) Qty: 90 1RF hydroxychloroquine 200 MG tablet 200 mg PO BIDCM losartan 50 mg tablet 50 mg PO BID atorvastatin 80 mg tablet 80 mg PO QHS carvedilol 12.5 mg tablet 12.5 mg PO BID isosorbide mononitrate 30 mg tablet extended release 24 hr 30 mg PO DAILY clopidogrel 75 mg tablet 75 mg PO DAILY divalproex 500 mg tablet extended release 24 hr 1,000 mg PO DAILY Rx Instructions: Take with divalproex ER 250mg for a total dose of 1250mg once daily divalproex 250 mg tablet extended release 24 hr 250 mg PO DAILY Rx Instructions: Take with two tabs of divalproex ER 500mg for a total dose of 1250mg once daily (DME) blood-glucose meter [True Metrix Air Glucose Meter] Kit See Rx Instructions .ROUTE .MEDSUPPLY Qty: 1 0RF Rx Instructions: As directed (DME) disability placard See Rx Instructions .ROUTE .MEDSUPPLY Qty: 1 0RF Rx Instructions: As directed, Length of time: 5 years sitagliptin 100 mg tablet 100 mg PO DAILY Qty: 90 3RF (DME) True Metrix Glucose Test Strip Strip See Rx Instructions .ROUTE .MEDSUPPLY Qty: 100 3RF Rx Instructions: check twice a day and as needed Referrals / Follow Up: Kannan Garcia MD [Primary Care Provider] - Within 2 Weeks Disposition Disposition (needs filled in before D/C Order can be placed): Home, Self Care
--- NOTE | 2022-01-03 13:13 | PCM.DC.SUM ---
Providers Date of Admission: 01/02/22 Date of Discharge: 01/03/22 Primary Care Physician: Dr. Kannan Garcia MD Reason For Visit: CHEST PAIN Diagnosis Discharge Diagnosis (1) Chest pain: Status: Acute Code(s): R07.9 - Chest pain, unspecified Plan 1. Acute chest pain, musculoskeletal 2. Acute on chronic neck pain 3. Type II DM 4. Hypertension 5. CAD s/p stent 6. Seizure disorder Medications at Discharge Home Medications multivitamin 1 tab PO DAILY vitamin 05/20/19 hydroxychloroquine 200 mg tablet 200 mg PO BIDCM arthritis 11/20/19 blood-glucose meter (True Metrix Air Glucose Meter kit) #1 ea 02/03/20 calcium citrate 200 mg (950 mg) tablet 200 mg PO BID supplement 05/21/20 disability placard #1 ea 06/27/20 aspirin 81 mg tablet,delayed release (Adult Low Dose Aspirin) 81 mg PO DAILY heart 08/13/20 sitagliptin 100 mg tablet 100 mg PO DAILY diabetes #90 tabs 05/02/21 blood sugar diagnostic (True Metrix Glucose Test Strip) #100 ea 07/17/21 benzonatate 100 mg capsule 100 mg PO BID-TID PRN cough #90 caps 12/23/21 atorvastatin 80 mg tablet 80 mg PO QHS cholesterol 01/02/22 carvedilol 12.5 mg tablet 12.5 mg PO BID heart rate 01/02/22 clopidogrel 75 mg tablet 75 mg PO DAILY heart 01/02/22 divalproex 250 mg tablet,extended release 24 hr 250 mg PO DAILY seziures 01/02/22 divalproex 500 mg tablet,extended release 24 hr 1,000 mg PO DAILY seizures 01/02/22 isosorbide mononitrate 30 mg tablet,extended release 24 hr 30 mg PO DAILY chest pain 01/02/22 losartan 50 mg tablet 50 mg PO BID blood pressure 01/02/22 lidocaine 5 % topical patch 2 patch topical DAILY 7 days #14 ea 01/03/22 Hospital Course Operations None Procedures Stress test Summary of Care Provided Minutes Spent on Discharge: 45 Hospital Course: 71-year-old female with past medical history of CAD status post stent, hypertension who comes in with sudden onset of left-sided chest pain, neck pain and left upper extremity pain. Patient stated that she was getting ready to go to work when she had sudden onset of pain in the radiated down her left. She could not lift the left arm. She denied any trauma. She does admit to chronic neck pain. Pain appears also to involve and neck. Admitting EKG was unremarkable. Chest x-ray and CTA of the head and neck were also unremarkable. Patient's physical exam was significant for reproducible pain. Patient's last stress test was in 2018. She was admitted to telemetry floor, monitored, started on scheduled Tylenol, oxycodone as needed as well as lidocaine. X-ray of the left shoulder was unremarkable. X-ray of the neck showed continued degenerative changes. She underwent stress test the next day that was unremarkable. Patient was discharged home and will follow up with her primary care doctor within 1 week. Physical Exam Narrative Physical exam: General: Alert, Oriented x3, Cooperative, in mild distress HEENT: Atraumatic Oral: Moist Mucosa Neck: Supple Lungs:Diminished to auscultation, tenderness over the left sternal border Cardiovascular: HS I+II, regular, no murmurs Abdomen: Bowel Sounds Present, Soft, Non Tender Extremities: No edema Skin: No rashes, No breakdown Neurological: Grossly intact Psych/Mental Status: Appropriate Weight / BMI Weight Weight: 81.8 kg Body Mass Index (BMI) 32.7 ABG / Lab / Microbiology Data Result Diagrams: 01/03/22 05:28 01/03/22 05:28 Laboratory: Laboratory Results - last 24 hr 01/02/22 14:30: Troponin I High Sens 5 01/02/22 16:09: POC Glucose 136 H 01/02/22 21:52: POC Glucose 182 H 01/03/22 05:28: WBC 4.9, RBC 3.20 L, Hgb 10.1 L, Hct 31.1 L, MCV 97.2, MCH 31.6, MCHC 32.5, RDW Std Deviation 48.3 H, RDW Coeff of [place] 13.4, Plt Count 181, MPV 10.8, Immature Gran % (Auto) 0.200, Neut % (Auto) 44.8 L, Lymph % (Auto) 46.4 H, [place] % (Auto) 4.9, Eos % (Auto) 3.1, Baso % (Auto) 0.6, Absolute Neuts (auto) 2.2, Absolute Lymphs (auto) 2.28, Nucleated RBC % 0 01/03/22 05:28: Sodium 141, Potassium 3.8, Chloride 110 H, Carbon Dioxide 26.0, Anion Gap 5, BUN 19 H, Creatinine 0.83, Estim Creat Clear Calc 50.59, Est GFR (MDRD) Af Amer 88, Est GFR (MDRD) Non-Af 73, BUN/Creatinine Ratio 22.9 H, Glucose 154 H, Calcium 8.0 L, Total Bilirubin 0.20, AST 15, ALT 23, Alkaline Phosphatase 83, Total Protein 6.0 L, Albumin 2.6 L, Globulin 3.4, Albumin/Globulin Ratio 0.8 L 01/03/22 06:09: POC Glucose 157 H 01/03/22 11:08: POC Glucose 107 H Radiography Diagnostic Testing: Radiology Impression Spine Flexion/Extension X-Ray 01/02/22 13:29 IMPRESSION: There are degenerative changes as noted above. Electronically Signed: Moody Staton MD at 17:00 EDT Reading Location ID and State: [facility] / [place] , Service support , Shoulder X-Ray 01/02/22 14:00 IMPRESSION: There are no acute findings of the shoulder. Electronically Signed: Moody Staton MD at 17:00 EDT , D/C Instructions Discharge Diet: Low fat / Low cholesterol and 2000 mg Sodium Diet Meaningful Use Info Meaningful Use Diagnoses (Choose all that apply): None applicable Discharge Plan Admission Admit Date/Time: 01/02/22 11:05 Primary Reason for Your Visit: Chest pain Attending Provider: Kay Fernandez Primary Care Provider: Kannan Garcia Instructions Additional Instructions / Restrictions: You can take Tylenol as needed for pain. You can also use any topical analgesics such as [place] or Aspercreme to apply to affected areas for pain Discharge Orders/Prescriptions Prescriptions: New lidocaine 5 % Adhesive Patch,Medicated 2 patch topical DAILY 7 Days Qty: 14 0RF Protocol: *Topical Application Instructions APPLICATION INSTRUCTIONS: apply to posterior neck Continued multivitamin Tablet 1 tab PO DAILY calcium citrate 200 mg (950 mg) tablet 200 mg PO BID aspirin [Adult Low Dose Aspirin] 81 mg tablet,delayed release (DR/EC) 81 mg PO DAILY benzonatate 100 mg capsule 100 mg PO BID-TID PRN (Reason: cough) Qty: 90 1RF hydroxychloroquine 200 MG tablet 200 mg PO BIDCM losartan 50 mg tablet 50 mg PO BID atorvastatin 80 mg tablet 80 mg PO QHS carvedilol 12.5 mg tablet 12.5 mg PO BID isosorbide mononitrate 30 mg tablet extended release 24 hr 30 mg PO DAILY clopidogrel 75 mg tablet 75 mg PO DAILY divalproex 500 mg tablet extended release 24 hr 1,000 mg PO DAILY Rx Instructions: Take with divalproex ER 250mg for a total dose of 1250mg once daily divalproex 250 mg tablet extended release 24 hr 250 mg PO DAILY Rx Instructions: Take with two tabs of divalproex ER 500mg for a total dose of 1250mg once daily (DME) blood-glucose meter [True Metrix Air Glucose Meter] Kit See Rx Instructions .ROUTE .MEDSUPPLY Qty: 1 0RF Rx Instructions: As directed (DME) disability placard See Rx Instructions .ROUTE .MEDSUPPLY Qty: 1 0RF Rx Instructions: As directed, Length of time: 5 years sitagliptin 100 mg tablet 100 mg PO DAILY Qty: 90 3RF (DME) True Metrix Glucose Test Strip Strip See Rx Instructions .ROUTE .MEDSUPPLY Qty: 100 3RF Rx Instructions: check twice a day and as needed Referrals / Follow Up: Kannan Garcia MD [Primary Care Provider] - Within 2 Weeks Disposition Disposition (needs filled in before D/C Order can be placed): Home, Self Care Charges/Coding Visit Charges OBSV E&M: 64341 Observation care discharge
[2022-01-03 13:14] VITALS: BP 123/77; PULSE 77; RESP 18; TEMP 36.3; O2SAT 99
--- NOTE | 2022-01-03 13:38 | CASEMGMT ---
Addendum entered by Karrie Kaplan 01/03/22 13:39: Pt states no further concerns with going home at time of discharge. Titus COLLINS CM Original Note: This RN CM to room with ROJAS form, explanation done-pt voices understanding, and signs ROJAS form. Original to chart and copy to pt. Pt voices no further questions/concerns/needs. Titus COLLINS CM
--- NOTE | 2022-01-03 13:52 | CASEMGMT ---
Pt sent home with script for lidocaine patches and per [facility], these are not covered under insurance. Call to [facility] to check on bennett for pt and per [place], pt's cost is $33.03. Pt is updated at this time, voices understanding. Titus COLLINS CM
== END 2022-01-03 12:45 | disposition home or self-care (01) ==
LOC: ED 11:26 → PCU 11:36
PROVIDERS: Admitting Provider Internal Medicine; Emergency Provider Emergency Medicine; PCP Internal Medicine; Visit Provider Internal Medicine
DX: R07.89 Other chest pain (principal); I11.0 Hypertensive heart disease with heart failure; I50.32 Chronic diastolic (congestive) heart failure; G40.909 Epilepsy, unspecified, not intractable, without status epilepticus; E11.9 Type 2 diabetes mellitus without complications; E78.00 Pure hypercholesterolemia, unspecified; M54.2 Cervicalgia; Z20.822 Contact with and (suspected) exposure to COVID-19; Z79.84 Long term (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 of oral hypoglycemic drugs; M79.602 Pain in left arm; Z79.02 Long term (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 of antithrombotics/antiplatelets; I25.10 Atherosclerotic heart disease of native coronary artery without angina pectoris; M25.512 Pain in left shoulder; G47.33 Obstructive sleep apnea (adult) (pediatric); K21.9 Gastro-esophageal reflux disease without esophagitis; Z79.899 Other long term (current) drug therapy
CPT/HCPCS: 36415; 70496; 70498; 71045; 72052; 73030; 78452; 80048; 80053; 82962; 84484; 85025; 85379; 93005; 93017; 96361; 96372; 96374; 96375; 96376; 99218; 99285; A9500; J7030; Q9967; A4216; G0378; J2405

== ENCOUNTER → 2022-01-10 | Outpatient (CLI) | payer MEDICARE, SELFPAY ==
[2020-12-31 12:33] VITALS: BMI 32.7
[2022-01-10 11:55] LABS: Absolute Lymphocyte Count 1.45 X10^3/uL (0.83-4.51); Basophil# 0.01 X10^3/uL; Basophil% 0.3 % (0-1); Eosinophil# 0.11 X10^3/uL; Eosinophils% 2.9 % (0-5); Hematocrit 37.6 % (37-47); Hemoglobin 12.5 g/dL (12.0-15.0); Lymphocyte # 1.45 X10^3/ul (0.83-4.51); Lymphocyte % 37.9 % (19-41); Mean Corp Hgb Conc 33.2 g/dL (32-36); Mean Corpuscular Hgb 32.1 pg (27.0-32.0); Mean Corpuscular Volume 96.4 fL (81-99); Mean Platelet Vol. 11.1 fl (6.2-12.0); Monocyte# 0.25 X10^3/uL; Monocyte% 6.5 % (0-10); NRBC Flagged by Analyzer 0 % (0-5); Neutrophil % 52.1 % (47-70); Platelet Count 210 K/mm3 (150-450); RBC Distribution Width CV 13.7 % (11.6-14.6); RBC Distribution Width SD 48.9 fl (35.1-43.9); White Blood Count 3.8 K/mm3 (4.4-11.0)
[2022-01-10 12:26] LABS: Hemoglobin A1c 7.3 % (3.8-5.6)
[2022-01-10 12:30] LABS: ALB/GLOB Ratio 0.9 RATIO (0.9-2.4); AST(SGOT) 17 U/L (15-37); Alanine Aminotransfer ALT/SGPT 28 U/L (13-56); Albumin, Serum 3.6 g/dL (3.2-5.0); Alkaline Phosphatase 87 U/L (45-117); Anion Gap 6 (5-15); BUN 21 mg/dL (7-18); BUN/Creat Ratio 22.6 RATIO (10-20); Calcium,Total 9.6 mg/dL (8.5-10.1); Chloride 106 mmol/L (98-107); Cholesterol 195 mg/dL (200); Creatinine, Serum 0.93 mg/dL (0.55-1.02); EST Glomerular Filtration Rate 64 mL/min (>60); Est Glom Filt Rate - Afr Amer 77 mL/min (>60); Globulin 4.2 g/dL (2.2-4.2); Glucose 124 mg/dL (74-106); High Density Lipoprotein 53 mg/dL; Potassium 4.1 mmol/L (3.5-5.1); Protein, Total 7.8 g/dL (6.4-8.2); Sodium Level 141 mmol/L (136-145); Triglycerides 92 mg/dL; Very Low Density Lipoprotein 18 mg/dL (5-40)
[2022-01-10 12:36] LABS: Microalbumin,Random Urine 22.4 mg/L (NO RANGE EST.); Microalbumin:Creatinine Ratio 7.3 mg/g CRE (<30 mg/g CRE)
== END | disposition home or self-care (01) ==
LOC: BIMLAB 10:31
PROVIDERS: PCP Internal Medicine; Visit Provider Internal Medicine
DX: E11.65 Type 2 diabetes mellitus with hyperglycemia (principal)
CPT/HCPCS: 36415; 80053; 80061; 82043; 82570; 83036; 85025

== ENCOUNTER 2022-02-21 09:30 | Outpatient (RCR) | payer MEDICARE, SELFPAY ==
[2020-12-31 12:33] VITALS: BMI 32.7
--- NOTE | 2022-01-27 14:44 | HP.PTEVAL ---
Patient's Visit Information LACY ALVARADO is a 71 year old F referred to Physical Therapy by Dr. Kannan Garcia MD with a diagnosis of cervical radicuopathy. Date of Evaluation: 01/27/22 Physical Therapist: Azam Benedict, CHELSIT, OCS, CSCS - Visit Plan Frequency: 3x /Week Duration: 4-6 Weeks Plan: 3x/week for 2-4 weeks for. 1. US and STM to L neck and shoulder, PROM cervical and manual traction, progress savanna exercises and cervical ext mobs to tolaerance, eventual cervical and postural strength as tolerated. - Subjective I have arthritis in spine. Neck bothers her. Andrew doctor sent to spinal specialist. It has hurt for 2-3 weeks, it is L sided pain down L arm. Went to ER and tested for heart attack and ruled that out. No history of this problem. Used to have HAs but this day was in kitchen cleaning cabinet and it just shot down neck adn arm and hard to move arm. Could not lift arm. L arm went numb and blood pressure went up. Admitted for pain control . Not scheduled yet with spinal specialist. Pain is in cervical area constant lately. She is L handed. 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 Needs to be active with them and has to work with this. Sleep is not great due to pain. Can't avoid things at home raising 16 yo grandson and needs to do laundry and does. Dresses herself adn cooks meals. - Pain L neck and shoulder and arm. Pain Intensity (Out of 10): 9 Pain Intensity Range: 4, 9 - Objective Posture is forward head and protracted scap. Tender to palpation L upper quarter generally. cervical aROm 15 ext and deviates R. R rotation 15 and L rotation 40 and SB nil L and 15 R, pain with l movements. reflexes 2/3 bi and triceps. strength is 3 in B UE, not motivated to resist R due to pain(shoulder wrist and hand and elbow) , not myotoomal. sensation WNL to gross light touch in B UE. neck 5/10, shoulder 5/10 ,. repeated protrusion Worse., Worse. repeated retraction: 5/10. improved ext rom without deviation, improved L rotation. repeated c/s ret ext: W, motion and pain. P numbness. - Balance/Special Test Scores Oswestry Neck Score: 27 - Goals Goal 1:: Patient sit with head on shoulder posture without pain at rest. Goal Time Frame: 2-4 Weeks Goal 2:: 45 degree B cervical rotation adn 45 extension without pain Goal Time Frame: 2-4 Weeks Goal 3:: Patient feel 75% better over all with painless than 2/10 at all times Goal Time Frame: 2-4 Weeks Goal 4:: i management of condition Goal Time Frame: 2-4 Weeks Goal 5:: oswestry score 7 or better Goal Time Frame: 2-4 Weeks - Rehabilitation Potential Physical Therapy Diagnosis: cervical radiculopathy with pain and diminished ROM. Rehabilitation Potential: Fair - Anticipated Interventions Patient/Client Instruction: Educate patient on: Condition, Plan of Care For the Purpose of:: To decrease pain, To increase ROM, To improve muscle performance and motor function, To increase tolerance to activity/condition/position Therapeutic Exercise to Include: Strength training, Flexibilty training, Passive ROM, Active ROM, Savanna Exercises For the Purpose of:: To decrease pain, To increase ROM, To improve nutrient delivery to tissue, To improve muscle performance and motor function Manual Therapy Techniques to Include: Mobilization, Passive ROM, Soft tissue mobilization For the Purpose of:: To decrease pain, To increase ROM Thermo therapy (hot pack): Yes Ultrasound (thermal/non thermal): Yes For the Purpose of:: To decrease pain, To decrease swelling/inflammation Thank you for the opportunity to evaluate your patient. For Medicare and Medicare HMO plans, please review the plan of care and approve it. It will need to be FAXED BACK to us at [phone] for Medicare purposes. For Medicare only, by signing this I certify the plan of care. Please let me know if there are questions or concerns regarding this plan of care. Physician Signature: Date:
--- NOTE | 2022-02-21 10:04 | HP.PTDCSUM ---
It has been my pleasure to treat LACY ALVARADO referred by Dr. Kannan Garcia MD, with the diagnosis of cervical radicuopathy for a total of 6 visit(s). Discharge Date: 02/21/22 Please see the following information for a summary of their discharge status. Subjective: Doing much better. Pain has gone away. I am great Motion is back. Back to normal ADLs. 95% better and feels like she can continue with HEp to get the other 5%. Working double shifts without issues. Comfortable with HEP. Sees Dr. Felton next month. L neck and shoulder and arm. Pain Intensity (Out of 10): 5 % Improvement: 95 Objective/Function: 50 extension. 55 B rotation without pain, no WALL. Posture much improved nd no pain with movement. UE AROM and strength funcitonal. Goal 1:: Patient sit with head on shoulder posture without pain at rest. Goal Progress: Goal Met Goal 2:: 45 degree B cervical rotation adn 45 extension without pain Goal Progress: Goal Met Goal 3:: Patient feel 75% better over all with painless than 2/10 at all times Goal Progress: 95% Goal 4:: i management of condition Goal Progress: Goal Met Goal 5:: oswestry score 7 or better Goal Progress: Goal Met Plan: d/c If there are questions or concerns regarding this patient's physical therapy, please feel free to call me at [phone]. Thank you for the referral of this patient. Sincerely, Azam Benedict, DPT, OCS, CSCS Balance/Gait/Functional tests - Balance/Special Test Scores Oswestry Neck Score: 4
== END 2022-02-21 19:00 | disposition home or self-care (01) ==
LOC: PT 09:30
PROVIDERS: PCP Internal Medicine; Referring Provider Internal Medicine; Visit Provider Internal Medicine
DX: M54.12 Radiculopathy, cervical region (principal)
CPT/HCPCS: 97035; 97110; 97140; 97162; 97164

== ENCOUNTER 2022-03-14 16:11 | Emergency (ER) | payer MEDICARE, SELFPAY ==
[2020-12-31 12:33] VITALS: BMI 32.7
[2022-03-14 16:12] VITALS: BP 183/74; PULSE 136; RESP 35; TEMP 36.2; O2SAT 97; BMI 33.0
--- NOTE | 2022-03-14 16:23 | CT_ITS ---
STUDY: CT BRAIN WITHOUT CONTRAST REASON FOR EXAM: Female, 71 years old. ams TECHNIQUE: Transaxial CT imaging of the brain was performed without administration of intravenous contrast material. Individualized dose optimization techniques were used for this CT. COMPARISON: 01/02/2022 FINDINGS: Normal calvarium. Normal soft tissues. Normal size ventricles and extra-axial spaces for the patient''s age. Normal white matter tracts of the cerebral hemispheres. There are small punctate calcifications of the basal ganglia which are seen in the aging brain as a normal variant. Normal brainstem. Normal cerebellum. There is no intracranial hemorrhage. There are no findings of an acute ischemic infarction. There are calcifications noted in the distal vertebral arteries. There are calcifications noted in the cavernous carotid arteries. This is consistent for atherosclerotic disease. Normal visualized paranasal sinuses. ASPECTS 10 CT/Brain/Head without Contrast IMPRESSION: There are no acute intracranial findings. Electronically Signed: Moody Staton MD at 18:21 EST ,
--- NOTE | 2022-03-14 16:26 | EX.ED.DYSGE1 ---
HPI History of Present Illness Chief Complaint: Seizure Informant: patient and EMS Narrative Narrative: 71-year-old female with a history of diabetes congestive heart failure and seizure disorder presenting to the emergency room with altered mental status. Reportedly family found her on the floor down for unknown amount of time. She states she does not feel well. She states that her head hurts and she just generally does not feel well. Other than the headache she is denying any pain. She denies neck or back pain. She states that she does not really remember much of the day. She does not remember how she ended up on the floor. She has been running low on her valproic acid and has been using smaller doses than normal until she can call tomorrow and get a refill. She is supposed to take 500 mg twice a day. She states that he past week she has been running low and thought she could make it. She denies any fever or cough. She denies any photophobia. No arm leg or speech difficulties. EMS notes that she seemed postictal upon their arrival. [facility] Medical History Abdominal pain Acute back pain Anemia Arthritis Atherosclerotic heart disease of [place] coronary artery without angina pectoris Cardiology follow-up encounter Cervical radiculopathy Chronic diastolic CHF (congestive heart failure) Colon cancer screening Compression fracture of lumbar spine, non-traumatic Congestive heart failure (CHF) Conversion disorder Cough CPAP (continuous positive airway pressure) dependence Diabetes Diabetes mellitus type 2 in nonobese Diabetes type 2, controlled Dysuria Dysuria Essential (primary) hypertension Foreign body in stomach GERD (gastroesophageal reflux disease) Health care maintenance Hives Hyperglycemia due to type 2 diabetes mellitus Hyperlipidemia Left shoulder pain Non-smoker Non-toxic goiter Obesity Obstructive sleep apnea Osteoarthritis Osteoporosis Personal history of colonic polyps Rheumatoid arthritis RIGHT FOOT HEEL SPUR Right shoulder pain Routine health maintenance Seasonal allergies Seizure disorder Seizures Shortness of breath on exertion Sleep apnea Therapeutic drug monitoring Type 2 diabetes mellitus Urinary frequency Urinary frequency Wears glasses Home Medications multivitamin 1 tab PO DAILY vitamin 05/20/19 [History Last Taken 12/31/21] hydroxychloroquine 200 mg tablet 200 mg PO BIDCM arthritis 11/20/19 [History Last Taken 12/31/21] blood-glucose meter (True Metrix Air Glucose Meter kit) #1 ea 02/03/20 [Rx Last Taken Unknown] calcium citrate 200 mg (950 mg) tablet 200 mg PO BID supplement 05/21/20 [History Last Taken 12/31/21] disability placard #1 ea 06/27/20 [Rx Last Taken Unknown] aspirin 81 mg tablet,delayed release (Adult Low Dose Aspirin) 81 mg PO DAILY heart 08/13/20 [History Last Taken 12/31/21] blood sugar diagnostic (True Metrix Glucose Test Strip) #100 ea 07/17/21 [Rx Last Taken Unknown] benzonatate 100 mg capsule 100 mg PO BID-TID PRN cough #90 caps 12/23/21 [Rx Last Taken 12/31/21] atorvastatin 80 mg tablet 80 mg PO QHS cholesterol 01/02/22 [History Last Taken 12/31/21] carvedilol 12.5 mg tablet 12.5 mg PO BID heart rate 01/02/22 [History Last Taken 01/01/22] clopidogrel 75 mg tablet 75 mg PO DAILY heart 01/02/22 [History Last Taken 01/01/22] divalproex 500 mg tablet,extended release 24 hr 1,000 mg PO DAILY seizures 01/02/22 [History Last Taken 12/31/21] isosorbide mononitrate 30 mg tablet,extended release 24 hr 30 mg PO DAILY chest pain 01/02/22 [History Last Taken 12/31/21] losartan 50 mg tablet 50 mg PO BID blood pressure 01/02/22 [History Last Taken 12/31/21] baclofen 10 mg tablet 10 mg PO TID PRN muscle spasm #90 tabs 01/10/22 [Rx Last Taken Unknown] divalproex 250 mg tablet,extended release 24 hr 500 mg PO DAILY seziures 01/10/22 [History Last Taken Unknown] divalproex 500 mg tablet,delayed release 500 mg PO BID 01/10/22 [History Last Taken Unknown] sitagliptin phosphate 100 mg tablet (Januvia) 100 mg PO DAILY 01/10/22 [History Last Taken Unknown] divalproex 500 mg tablet,delayed release (Depakote) 500 mg PO BID #60 tabs 03/14/22 [Rx Last Taken Unknown] Allergy/AdvReac Type Severity Reaction Status Date / Time prednisone AdvReac Nausea Verified 03/14/22 16:16 Family History Grandmother Alcoholism Cancer Arthritis Mother Alcoholism Diabetes blood clots Hypertension Grandfather Heart disease Sister Thyroid disorder Other Breast cancer Cervical cancer Colon cancer Surgical History H/O: hysterectomy History of cardiac catheterization History of carpal tunnel surgery History of section History of coronary artery stent placement (03/22/18) History of left heart catheterization (09/20/18) Social History Smoking Status: Never smoker second hand exposure: No alcohol intake: current alcohol intake frequency: holidays/special occasions only substance use type: does not use what type of physical activity do you participate in: none ROS ROS ED Constitutional Constitutional ED: Denies chills or weight loss Eyes Eyes: Denies change in vision or diplopia ENT ENT ED: Denies ear pain, rhinorrhea or sore throat Cardiovascular Cardiovascular: Denies chest pain, orthopnea, palpitations or racing heartbeat Respiratory/Chest Respiratory/Chest: Denies cough, dyspnea or orthopnea Gastrointestinal Gastrointestinal: Denies abdominal pain, diarrhea, nausea or vomiting Genitourinary Genitourinary ED: Denies dysuria, hematuria or urinary frequency Musculoskeletal Musculoskeletal: Denies arthralgias, back pain, myalgias or neck pain Integumentary Denies abscess or rash Neurologic Neurologic: Reports headache(s); Denies weakness Psychiatric Psychiatric: Denies anxiety, depression, suicidal ideation or suicidal thoughts Endocrine Endocrinology: Denies polydipsia, polyphagia or polyuria Allergic/Immunologic Allergic/Immunologic ED: Denies mouth swelling, tongue swelling or urticaria EXAM Physical Exam Const Vital Signs: 03/14/22 16:12 03/14/22 18:18 Temperature 97.1 F L Temperature Source Temporal Pulse Rate 136 H 101 H Respiratory Rate 35 H 13 Blood Pressure 183/74 H Blood Pressure Mean 110 Pulse Ox 97 98 Oxygen Delivery Method Room Air Room Air Positive well nourished and well developed General Appearance ED: well developed HEENT Reports normocephalic, head/scalp atraumatic and moist mucous membranes Eyes PERRL and EOMs intact bilaterally Neck no lymphadenopathy, supple and no JVD Resp normal respiratory effort and clear to auscultation bilaterally Cardio regular rate, regular rhythm and no murmurs GI normal to inspection, nondistended, normoactive bowel sounds and non-tender Palpation: soft Back/Spine no CVA tenderness and normal ROM Extremity normal to inspection General Extremety ED: Negative for edema General Extremity: Negative for edema Neuro oriented x3 and CN's II-XII intact bilaterally Sensorium / Orientation: lethargic Sensory Exam: No sensory level loss detected Motor Exam: general weakness Psych Mood & Affect: Negative for depressed or tearful Skin no rashes or lesions noted and no wounds MDM MDM MDM Narrative Medical decision making narrative: White count is 6 hemoglobin 11.6. CBC is essentially negative glucose 128. Lactic acid was elevated at 3.2 suggestive of a seizure disorder. Urinalysis is negative. Valproic acid is low at 42. CT the brain was obtained and was negative. My interpretation of the chest x-ray is no acute process. The patient has not had no further seizures here in the department. She received some Toradol for pain and received an additional dose of IV valproic acid. The patient will be written for Depakote so that she has it was instructed to be more compliant with requesting refills. Family is with her and notes that that is not a problem. Lab Data Attestation: I reviewed the patient's lab results. Labs: Laboratory Results - last 24 hr 03/14/22 03/14/22 03/14/22 17:34 17:34 17:34 WBC 6.0 RBC 3.71 L Hgb 11.6 L Hct 35.7 L MCV 96.2 MCH 31.3 MCHC 32.5 RDW Std Deviation 47.1 H RDW Coeff of [place] 13.2 Plt Count 233 MPV 9.9 Immature Gran % (Auto) 0.300 Neut % (Auto) 66.8 Lymph % (Auto) 24.8 Douglas % (Auto) 6.3 Eos % (Auto) 1.5 Baso % (Auto) 0.3 Absolute Neuts (auto) 4.0 Absolute Lymphs (auto) 1.49 Nucleated RBC % 0 Sodium 141 Potassium 4.1 Chloride 108 H Carbon Dioxide 25.0 Anion Gap 8 BUN 21 H Creatinine 0.93 Estim Creat Clear Calc 45.15 Est GFR (MDRD) Af Amer 77 Est GFR (MDRD) Non-Af 64 BUN/Creatinine Ratio 22.6 H Glucose 125 H Lactic Acid Calcium 9.2 Total Bilirubin 0.30 AST 21 ALT 32 Alkaline Phosphatase 84 Troponin I High Sens 18 Total Protein 7.5 Albumin 3.3 Globulin 4.2 Albumin/Globulin Ratio 0.8 L Urine Color Urine Clarity Urine pH Ur Specific [place] Urine Protein Urine Glucose (UA) Urine Ketones Urine Occult Blood Urine Nitrite Urine Bilirubin Urine Urobilinogen Ur Leukocyte Esterase Urine RBC Urine WBC Ur Squamous Epith Cells Urine Bacteria Urine Mucus Valproic Acid 42 L 03/14/22 03/14/22 17:34 18:31 WBC RBC Hgb Hct MCV MCH MCHC RDW Std Deviation RDW Coeff of [place] Plt Count MPV Immature Gran % (Auto) Neut % (Auto) Lymph % (Auto) Douglas % (Auto) Eos % (Auto) Baso % (Auto) Absolute Neuts (auto) Absolute Lymphs (auto) Nucleated RBC % Sodium Potassium Chloride Carbon Dioxide Anion Gap BUN Creatinine Estim Creat Clear Calc Est GFR (MDRD) Af Amer Est GFR (MDRD) Non-Af BUN/Creatinine Ratio Glucose Lactic Acid 3.2 H* Calcium Total Bilirubin AST ALT Alkaline Phosphatase Troponin I High Sens Total Protein Albumin Globulin Albumin/Globulin Ratio Urine Color Yellow Urine Clarity Clear Urine pH 7.0 Ur Specific [place] 1.015 Urine Protein 15 H Urine Glucose (UA) Normal Urine Ketones 15 H Urine Occult Blood Negative Urine Nitrite Negative Urine Bilirubin Negative Urine Urobilinogen Normal Ur Leukocyte Esterase Negative Urine RBC 0 SEEN Urine WBC 0 SEEN Ur Squamous Epith Cells 0-5 SEEN Urine Bacteria 0 SEEN Urine Mucus 0 SEEN Valproic Acid Radiography Diagnostic Testing: Clinical Impression(s) from Imaging Studies Brain CT 03/14/22 16:23 IMPRESSION: There are no acute intracranial findings. Electronically Signed: Moody Staton MD at 18:21 EST , Chest X-Ray 03/14/22 17:46 IMPRESSION: There are no acute findings. Electronically Signed: Moody Staton MD at 18:12 EST , Discharge Plan Triage Chief Complaint: Seizure ED Provider: Mikey Garcia Dx/Rx/DC Orders Clinical Impression: Epileptic seizure, Headache Instructions: ED Seizure, Recurrent (Adult) Prescriptions: New divalproex [Depakote] 500 mg tablet,delayed release (DR/EC) 500 mg PO BID Qty: 60 0RF No Action multivitamin Tablet 1 tab PO DAILY calcium citrate 200 mg (950 mg) tablet 200 mg PO BID aspirin [Adult Low Dose Aspirin] 81 mg tablet,delayed release (DR/EC) 81 mg PO DAILY benzonatate 100 mg capsule 100 mg PO BID-TID PRN (Reason: cough) Qty: 90 1RF divalproex 500 mg tablet,delayed release (DR/EC) 500 mg PO BID Januvia 100 mg tablet 100 mg PO DAILY baclofen 10 mg tablet 10 mg PO TID PRN (Reason: muscle spasm) Qty: 90 0RF hydroxychloroquine 200 MG tablet 200 mg PO BIDCM losartan 50 mg tablet 50 mg PO BID atorvastatin 80 mg tablet 80 mg PO QHS carvedilol 12.5 mg tablet 12.5 mg PO BID isosorbide mononitrate 30 mg tablet extended release 24 hr 30 mg PO DAILY clopidogrel 75 mg tablet 75 mg PO DAILY divalproex 500 mg tablet extended release 24 hr 1,000 mg PO DAILY Rx Instructions: Take with divalproex ER 250mg for a total dose of 1250mg once daily divalproex 250 mg tablet extended release 24 hr 500 mg PO DAILY Rx Instructions: Take with two tabs of divalproex ER 500mg for a total dose of 1250mg once daily (DME) blood-glucose meter [True Metrix Air Glucose Meter] Kit See Rx Instructions .ROUTE .MEDSUPPLY Qty: 1 0RF Rx Instructions: As directed (DME) disability placard See Rx Instructions .ROUTE .MEDSUPPLY Qty: 1 0RF Rx Instructions: As directed, Length of time: 5 years (DME) True Metrix Glucose Test Strip Strip See Rx Instructions .ROUTE .MEDSUPPLY Qty: 100 3RF Rx Instructions: check twice a day and as needed Primary Care Provider: Kannan Garcia Referrals: Kannan Garcia MD [Primary Care Provider] - As Needed Disposition Disposition: Home, Self Care
[2022-03-14 17:41] LABS: Absolute Lymphocyte Count 1.49 X10^3/uL (0.83-4.51); Basophil# 0.02 X10^3/uL; Basophil% 0.3 % (0-1); Eosinophil# 0.09 X10^3/uL; Eosinophils% 1.5 % (0-5); Hematocrit 35.7 % (37-47); Hemoglobin 11.6 g/dL (12.0-15.0); Lymphocyte # 1.49 X10^3/ul (0.83-4.51); Lymphocyte % 24.8 % (19-41); Mean Corp Hgb Conc 32.5 g/dL (32-36); Mean Corpuscular Hgb 31.3 pg (27.0-32.0); Mean Corpuscular Volume 96.2 fL (81-99); Mean Platelet Vol. 9.9 fl (6.2-12.0); Monocyte# 0.38 X10^3/uL; Monocyte% 6.3 % (0-10); NRBC Flagged by Analyzer 0 % (0-5); Neutrophil # 4.01 X10^3/uL (2.7-7.7); Neutrophil % 66.8 % (47-70); Platelet Count 233 K/mm3 (150-450); RBC Distribution Width CV 13.2 % (11.6-14.6); RBC Distribution Width SD 47.1 fl (35.1-43.9); Red Blood Count 3.71 M/mm3 (4.2-5.4)
--- NOTE | 2022-03-14 17:46 | RAD_ITS ---
STUDY: XR Chest 1 View 03/14/2022 5:46 PM REASON FOR EXAM: Female, 71 years old. CHEST PAIN hypertension COMPARISON: 01.02.22 TECHNIQUE: XR Chest 1 View FINDINGS: There is no demonstrated pleural abnormality. Normal heart size. Normal mediastinum. Normal allie. Prominent appearing increased interstitial lung markings. Normal visualized pulmonary arteries. There is atherosclerotic calcification of the aortic arch with tortuosity. There are diffuse degenerative changes of the visualized thoracic spine. There is degenerative osteoarthritis of the bilateral shoulders. There is no demonstrated abnormality of the visualized soft tissue structures of the upper abdomen. RAD/Chest 1 View (Portable) IMPRESSION: There are no acute findings. Electronically Signed: Moody Staton MD at 18:12 EST ,
[2022-03-14 18:05] LABS: ALB/GLOB Ratio 0.8 RATIO (0.9-2.4); AST(SGOT) 21 U/L (15-37); Alanine Aminotransfer ALT/SGPT 32 U/L (13-56); Albumin, Serum 3.3 g/dL (3.2-5.0); Alkaline Phosphatase 84 U/L (45-117); Anion Gap 8 (5-15); BUN 21 mg/dL (7-18); BUN/Creat Ratio 22.6 RATIO (10-20); Calcium,Total 9.2 mg/dL (8.5-10.1); Chloride 108 mmol/L (98-107); Creatinine, Serum 0.93 mg/dL (0.55-1.02); EST Glomerular Filtration Rate 64 mL/min (>60); Est Glom Filt Rate - Afr Amer 77 mL/min (>60); Estimated Creatinine Clearance 45.15 ml/min; Globulin 4.2 g/dL (2.2-4.2); Glucose 125 mg/dL (74-106); Potassium 4.1 mmol/L (3.5-5.1); Protein, Total 7.5 g/dL (6.4-8.2); Sodium Level 141 mmol/L (136-145); Troponin-I HS 18 pg/mL (3.0-54.0)
[2022-03-14 18:14] LABS: Lactic Acid 3.2 mmol/L (0.4-1.9)
[2022-03-14 18:18] VITALS: PULSE 101; RESP 13; O2SAT 98
[2022-03-14 18:22] LABS: Valproic Acid (Depakene) Level 42 ug/mL (50-100)
[2022-03-14 18:39] LABS: Bacteria 0 SEEN /hpf (None Seen); Mucous, Urine 0 SEEN /hpf (<or=2+); Red Blood Cells-Urine 0 SEEN /hpf (0-5); White Blood Cells 0 SEEN /hpf (0-5)
[2022-03-14 18:40] LABS: Color, Urine Yellow (Yellow); Glucose, Dipstick Normal (Normal); Ketone-Dipstick 15 mg/dl (Negative); Leukocyte Esterase-Dipstick Negative /ul (Negative); Nitrite-Dipstick Negative (Negative); Occult Blood-Urine Negative /ul (Negative); Protein-Dipstick 15 mg/dl (Negative); Specific Gravity, Urine 1.015 (1.002-1.030); Urine Bilirubin Dipstick Negative (Negative); Urine Clarity Clear (Clear); Urine Urobilinogen Normal (Normal)
[2022-03-14 18:45] LABS: Squamous Epithelial Cells - UA 0-5 SEEN /hpf (5-10)
[2022-03-14] MEDS: Ketorolac 30 MG/ML Syringe IV (19:00)
[2022-03-14 19:26] VITALS: BP 141/76; PULSE 100; RESP 17; O2SAT 98
[2022-03-14 20:13] VITALS: BP 150/85; PULSE 93; RESP 18; O2SAT 98
[2022-03-14] MEDS: HYDROcodone Bitartrate/Apap 5/325 Tablet PO (20:24)
[2022-03-14 21:36] LABS: Reflex Lactate? Y
== END 2022-03-14 20:34 | disposition home or self-care (01) ==
PROVIDERS: Emergency Provider Emergency Medicine; PCP Internal Medicine; Visit Provider Emergency Medicine
DX: G40.909 Epilepsy, unspecified, not intractable, without status epilepticus (principal); I11.0 Hypertensive heart disease with heart failure; I50.32 Chronic diastolic (congestive) heart failure; E11.9 Type 2 diabetes mellitus without complications; I25.10 Atherosclerotic heart disease of native coronary artery without angina pectoris; E78.5 Hyperlipidemia, unspecified; Z79.82 Long term (current) use of aspirin; Z79.02 Long term (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 of antithrombotics/antiplatelets; Z79.899 Other long term (current) drug therapy
CPT/HCPCS: 70450; 71045; 80053; 80164; 81001; 83605; 84484; 85025; 99285; A4216

== ENCOUNTER 2022-03-29 10:31 | Emergency (ER) | payer MEDICARE, SELFPAY ==
[2020-12-31 12:33] VITALS: BMI 32.7
[2022-03-29 10:32] VITALS: BP 151/93; PULSE 88; RESP 18; TEMP 35.6; O2SAT 100; BMI 32.8
--- NOTE | 2022-03-29 12:03 | RAD_ITS ---
STUDY: X-RAY - SACRUM/COCCYX REASON FOR EXAM: Female, 71 years old. Trauma TECHNIQUE: 3 view(s) of the sacrum and coccyx were obtained. COMPARISON: None. Normal bilateral sacroiliac joints. Normal visualized sacral ala and fused sacral bodies. Normal sacrococcygeal junction with a normal angulation. Normal coccygeal segments. The presacral soft tissue structures are unremarkable. There is no demonstrated fracture. FINDINGS: Normal bilateral sacroiliac joints. Normal visualized sacral ala and fused sacral bodies. Normal sacrococcygeal junction with a normal angulation. Normal coccygeal segments. The presacral soft tissue structures are unremarkable. There is no demonstrated fracture. IMPRESSION: Normal x-rays of the sacrum and coccyx. RAD/Sacrum-Coccyx min 2 Views IMPRESSION: Normal x-rays of the sacrum and coccyx. Electronically Signed: Jossue Abel MD at 12:40 EST ,
--- NOTE | 2022-03-29 12:04 | RAD_ITS ---
STUDY: X-RAY - RIGHT KNEE REASON FOR EXAM: Female, 71 years old. Injury/Pain TECHNIQUE: 4 view(s) of the knee. COMPARISON: None. FINDINGS: Normal visualized distal femur. Normal visualized proximal tibia and fibula. Normal proximal tibiofibular articulation. There is no demonstrated fracture. There is mild degenerative arthrosis of the medial femorotibial compartment. Normal lateral femorotibial compartment. There is mild degenerative arthrosis of the patellofemoral articulation. The soft tissue structures are unremarkable. RAD/Knee 4 or More Views IMPRESSION: Degenerative arthrosis. Electronically Signed: Jossue Abel MD at 12:39 EST ,
--- NOTE | 2022-03-29 12:04 | ED.VIS.FALL ---
HPI HPI - Fall History of Present Illness Chief Complaint: Fall Informant: patient Occured/Mechanism Occurred: Weeks (1) Mechanism/Context: Yes same level fall Pain/Injury Location: Sacrum and right knee Quality of Pain: Aching and Burning Worsened by: Sitting, movement Relieved by: Nothing Associated Symptoms Associated Symptoms: Negative for Parasthesias, Weakness, Loss of function, Inability to ambulate, Loss of consciousness or Amnesia Narrative Narrative: Patient presents after a fall 1 week ago. Patient states she slipped and fell backwards. Patient states she landed on her tailbone. Patient states she also twisted her right knee. Patient states her pain is worse over her sacrum and right knee. Patient describes it as aching and burning. Patient states her pain is worse with sitting and with movement. Patient denies any paresthesias or weakness. Patient states nothing makes her pain any better. Patient denies any head injury or loss of consciousness with the fall. [facility] Medical History Abdominal pain Acute back pain Anemia Arthritis Atherosclerotic heart disease of [place] coronary artery without angina pectoris Cardiology follow-up encounter Cervical radiculopathy Chronic diastolic CHF (congestive heart failure) Colon cancer screening Compression fracture of lumbar spine, non-traumatic Congestive heart failure (CHF) Conversion disorder Cough CPAP (continuous positive airway pressure) dependence Diabetes Diabetes mellitus type 2 in nonobese Diabetes type 2, controlled Dysuria Dysuria Essential (primary) hypertension Foreign body in stomach GERD (gastroesophageal reflux disease) Health care maintenance Hives Hyperglycemia due to type 2 diabetes mellitus Hyperlipidemia Left shoulder pain Non-smoker Non-toxic goiter Obesity Obstructive sleep apnea Osteoarthritis Osteoporosis Personal history of colonic polyps Rheumatoid arthritis RIGHT FOOT HEEL SPUR Right shoulder pain Routine health maintenance Seasonal allergies Seizure disorder Seizures Shortness of breath on exertion Sleep apnea Therapeutic drug monitoring Type 2 diabetes mellitus Urinary frequency Urinary frequency Wears glasses Home Medications multivitamin 1 tab PO DAILY vitamin 05/20/19 [History Last Taken 12/31/21] hydroxychloroquine 200 mg tablet 200 mg PO BIDCM arthritis 11/20/19 [History Last Taken 12/31/21] blood-glucose meter (True Metrix Air Glucose Meter kit) #1 ea 02/03/20 [Rx Last Taken Unknown] calcium citrate 200 mg (950 mg) tablet 200 mg PO BID supplement 05/21/20 [History Last Taken 12/31/21] disability placard #1 ea 06/27/20 [Rx Last Taken Unknown] aspirin 81 mg tablet,delayed release (Adult Low Dose Aspirin) 81 mg PO DAILY heart 08/13/20 [History Last Taken 12/31/21] blood sugar diagnostic (True Metrix Glucose Test Strip) #100 ea 07/17/21 [Rx Last Taken Unknown] benzonatate 100 mg capsule 100 mg PO BID-TID PRN cough #90 caps 12/23/21 [Rx Last Taken 12/31/21] atorvastatin 80 mg tablet 80 mg PO QHS cholesterol 01/02/22 [History Last Taken 12/31/21] carvedilol 12.5 mg tablet 12.5 mg PO BID heart rate 01/02/22 [History Last Taken 01/01/22] clopidogrel 75 mg tablet 75 mg PO DAILY heart 01/02/22 [History Last Taken 01/01/22] divalproex 500 mg tablet,extended release 24 hr 1,000 mg PO DAILY seizures 01/02/22 [History Last Taken 12/31/21] isosorbide mononitrate 30 mg tablet,extended release 24 hr 30 mg PO DAILY chest pain 01/02/22 [History Last Taken 12/31/21] losartan 50 mg tablet 50 mg PO BID blood pressure 01/02/22 [History Last Taken 12/31/21] baclofen 10 mg tablet 10 mg PO TID PRN muscle spasm #90 tabs 01/10/22 [Rx Last Taken Unknown] divalproex 250 mg tablet,extended release 24 hr 500 mg PO DAILY seziures 01/10/22 [History Last Taken Unknown] divalproex 500 mg tablet,delayed release 500 mg PO BID 01/10/22 [History Last Taken Unknown] sitagliptin phosphate 100 mg tablet (Januvia) 100 mg PO DAILY 01/10/22 [History Last Taken Unknown] divalproex 500 mg tablet,delayed release (Depakote) 500 mg PO BID #60 tabs 03/14/22 [Rx Last Taken Unknown] hydrocodone-acetaminophen 5-325mg 5mg-325mg 1 tab PO Q6H PRN PRN Pain 3 days #10 TABLETS 03/29/22 [Rx Last Taken Unknown] Allergy/AdvReac Type Severity Reaction Status Date / Time prednisone AdvReac Nausea Verified 03/29/22 10:31 Family History Grandmother Alcoholism Cancer Arthritis Mother Alcoholism Diabetes blood clots Hypertension Grandfather Heart disease Sister Thyroid disorder Other Breast cancer Cervical cancer Colon cancer Surgical History H/O: hysterectomy History of cardiac catheterization History of carpal tunnel surgery History of section History of coronary artery stent placement (03/22/18) History of left heart catheterization (09/20/18) Social History Smoking Status: Never smoker second hand exposure: No alcohol intake: current alcohol intake frequency: holidays/special occasions only substance use type: does not use what type of physical activity do you participate in: none ROS ROS ED Constitutional Constitutional ED: Denies chills or fever(s) Eyes Eyes: Denies blurry vision or change in vision ENT ENT ED: Denies rhinorrhea or sore throat Cardiovascular Cardiovascular: Denies chest pain or palpitations Respiratory/Chest Respiratory/Chest: Reports dyspnea; Denies cough Gastrointestinal Gastrointestinal: Denies nausea or vomiting Genitourinary Genitourinary ED: Reports urinary frequency; Denies dysuria or hematuria Musculoskeletal Musculoskeletal: Reports back pain; Denies neck pain Integumentary Denies abscess or rash Neurologic Neurologic: Denies headache(s) or weakness Allergic/Immunologic Allergic/Immunologic ED: Denies mouth swelling or urticaria EXAM Physical Exam Const Vital Signs: 03/29/22 10:32 03/29/22 10:41 Temperature 96.0 F L Temperature Source Temporal Pulse Rate 88 Respiratory Rate 18 Respiratory Effort Normal Non-Labored Blood Pressure 151/93 H Blood Pressure Mean 112 Pulse Ox 100 Oxygen Delivery Method Room Air Positive well nourished, well developed and obese General Appearance ED: well developed and NAD Nutritional Appearance: obese HEENT Reports normocephalic atraumatic Neck full ROM and supple Extremity Extremity Narrative: There is tenderness and edema over the right knee. Range of motion is limited in all motions of the right knee secondary to pain. Strength is 5/5 in flexion extension of the right knee. There are no sensory deficits noted. Extensor mechanism is intact. There is no laxity but there is guarding on examination. Varus and valgus stress test were negative. Angie's test was negative. Neuro oriented x3, CN's II-XII intact bilaterally, moves all extremities, no focal motor deficits and no sensory deficits noted Sensorium / Orientation: alert Motor Exam: strength 5/5 throughout MDM MDM MDM Narrative Medical decision making narrative: Patient was given a dose of Joppa here. X-rays of the right knee were obtained. There are 4 views. On my interpretation, there is no acute fracture or dislocation. There is a mild joint effusion. Radiologist also interpreted the x-rays and agrees. X-rays of the sacrum and coccyx were obtained. There are 3 views. On my interpretation, there is no acute fracture or dislocation. Radiologist also interpreted the x-rays and agrees. Patient was instructed to ice and elevate the right knee. Patient was instructed to use saline and inflatable doughnut pillow. Patient was instructed to follow-up with her primary care physician in 5 to 7 days. Patient was given a prescription for a short course of Joppa. Patient understood and was agreeable with the plan. All questions were answered. Radiography Diagnostic Testing: Clinical Impression(s) from Imaging Studies Sacrum and Coccyx X-Ray 03/29/22 12:03 IMPRESSION: Normal x-rays of the sacrum and coccyx. Electronically Signed: Jossue Abel MD at 12:40 EST , Knee X-Ray 03/29/22 12:04 IMPRESSION: Degenerative arthrosis. Electronically Signed: Jossue Abel MD at 12:39 EST , Discharge Plan Triage Chief Complaint: Fall ED Provider: Azam Frey Dx/Rx/DC Orders Clinical Impression: Contusion of sacrum, Right knee sprain Instructions: ED Coccyx or Sacrum Contusion, ED Knee Sprain Prescriptions: New hydrocodone-acetaminophen [hydrocodone-acetaminophen] 1 TABLET tablet 1 tab PO Q6H PRN PRN (Reason: Pain) 3 Days Qty: 10 0RF No Action multivitamin Tablet 1 tab PO DAILY calcium citrate 200 mg (950 mg) tablet 200 mg PO BID aspirin [Adult Low Dose Aspirin] 81 mg tablet,delayed release (DR/EC) 81 mg PO DAILY benzonatate 100 mg capsule 100 mg PO BID-TID PRN (Reason: cough) Qty: 90 1RF divalproex 500 mg tablet,delayed release (DR/EC) 500 mg PO BID Januvia 100 mg tablet 100 mg PO DAILY baclofen 10 mg tablet 10 mg PO TID PRN (Reason: muscle spasm) Qty: 90 0RF hydroxychloroquine 200 MG tablet 200 mg PO BIDCM losartan 50 mg tablet 50 mg PO BID atorvastatin 80 mg tablet 80 mg PO QHS carvedilol 12.5 mg tablet 12.5 mg PO BID isosorbide mononitrate 30 mg tablet extended release 24 hr 30 mg PO DAILY clopidogrel 75 mg tablet 75 mg PO DAILY divalproex 500 mg tablet extended release 24 hr 1,000 mg PO DAILY Rx Instructions: Take with divalproex ER 250mg for a total dose of 1250mg once daily divalproex 250 mg tablet extended release 24 hr 500 mg PO DAILY Rx Instructions: Take with two tabs of divalproex ER 500mg for a total dose of 1250mg once daily divalproex [Depakote] 500 mg tablet,delayed release (DR/EC) 500 mg PO BID Qty: 60 0RF (DME) blood-glucose meter [True Metrix Air Glucose Meter] Kit See Rx Instructions .ROUTE .MEDSUPPLY Qty: 1 0RF Rx Instructions: As directed (DME) disability placard See Rx Instructions .ROUTE .MEDSUPPLY Qty: 1 0RF Rx Instructions: As directed, Length of time: 5 years (DME) True Metrix Glucose Test Strip Strip See Rx Instructions .ROUTE .MEDSUPPLY Qty: 100 3RF Rx Instructions: check twice a day and as needed Primary Care Provider: Kannan Garcia Referrals: Kannan Garcia MD [Primary Care Provider] - 3-5 Days Disposition Disposition: Home, Self Care
[2022-03-29] MEDS: HYDROcodone Bitartrate/Apap 5/325 Tablet PO (12:25)
== END 2022-03-29 13:48 | disposition home or self-care (01) ==
PROVIDERS: Emergency Provider Emergency Medicine; PCP Internal Medicine; Visit Provider Emergency Medicine
DX: S30.0XXA Contusion of lower back and pelvis, initial encounter (principal); S83.91XA Sprain of unspecified site of right knee, initial encounter; I25.10 Atherosclerotic heart disease of native coronary artery without angina pectoris; G47.33 Obstructive sleep apnea (adult) (pediatric); E66.9 Obesity, unspecified; Z95.5 Presence of coronary angioplasty implant and graft; W18.30XA Fall on same level, unspecified, initial encounter
CPT/HCPCS: 72220; 73564; 99283

== ENCOUNTER → 2022-05-06 | Outpatient (CLI) | payer MEDICARE, SELFPAY ==
[2020-12-31 12:33] VITALS: BMI 32.7
== END | disposition home or self-care (01) ==
LOC: LABSPEC 13:41
PROVIDERS: PCP Internal Medicine; Visit Provider Internal Medicine
DX: R68.89 Other general symptoms and signs (principal); Z20.822 Contact with and (suspected) exposure to COVID-19
CPT/HCPCS: 87635; U0003; U0005

== ENCOUNTER 2022-06-06 09:10 | Emergency (ER) | payer MEDICARE, SELFPAY ==
[2020-12-31 12:33] VITALS: BMI 32.7
[2022-06-06 09:11] VITALS: BP 143/109; PULSE 131; RESP 16; TEMP 36.7; O2SAT 99; BMI 33.7
--- NOTE | 2022-06-06 09:30 | EKG12_ITS ---
Test Reason : Blood Pressure : / mmHG Vent. Rate : 122 BPM Atrial Rate : 122 BPM P-R Int : 142 ms QRS Dur : 080 ms QT Int : 312 ms P-R-T Axes : 051 004 016 degrees QTc Int : 444 ms Sinus tachycardia Otherwise normal ECG Confirmed by RADHIKA ZUNIGA, KELLY ([id number]), publishing editor ADIA ARDON ([id number]) on 06/09/2022 11:09:07 AM Referred By: SHERRIE Confirmed By:KELLY GARRIDO MD
--- NOTE | 2022-06-06 09:30 | RAD_ITS ---
STUDY: X-RAY CHEST REASON FOR EXAM: Female, 71 years old. Chest pain TECHNIQUE: Single AP portable view of the chest. COMPARISON: Comparison is made with prior examination dated 03/14/2002. FINDINGS: Minimal increased markings in the posterior medial segment of the left lower lobe. Follow-up is recommended. There is no demonstrated pleural abnormality. Normal size heart. Normal mediastinum and allie. Normal visualized pulmonary arteries. Normal visualized aortic arch and descending thoracic aorta. There are diffuse degenerative changes of the visualized thoracic spine. There is degenerative osteoarthritis of the bilateral shoulders. There is no demonstrated abnormality of the visualized soft tissue structures of the upper abdomen. RAD/Chest 1 View (Portable) IMPRESSION: Minimal degree of increased markings in the posterior medial segment of the left lower lobe. Follow-up recommended. Electronically Signed: Tor Artis MD at 10:44 EST ,
--- NOTE | 2022-06-06 09:31 | EDS_ITS ---
HPI History of Present Illness Chief Complaint: Seizure Narrative Narrative: History of [place] seizures brought in by EMS unclear where at this point as EMS is left. Had had a seizure episode with postictal period. Slightly confused at this time. She states with her [place] she normally feels it coming. She is on Depakote. She states she does miss at times and think she have missed some doses recently. Been dealing with left back pain with urine discomfort. Currently reports chest pain. Denies cough. No recent vomiting or diarrhea. Prior similar symptoms: Yes PFSH FORMERLY [facility], 1928–1983 Medical History Abdominal pain Acute back pain Anemia Arthritis Atherosclerotic heart disease of [place] coronary artery without angina pectoris Cardiology follow-up encounter Cervical radiculopathy Chronic diastolic CHF (congestive heart failure) Colon cancer screening Compression fracture of lumbar spine, non-traumatic Congestive heart failure (CHF) Conversion disorder Cough CPAP (continuous positive airway pressure) dependence Diabetes Diabetes mellitus type 2 in nonobese Diabetes type 2, controlled Dysuria Dysuria Essential (primary) hypertension Foreign body in stomach GERD (gastroesophageal reflux disease) Health care maintenance Hives Hyperglycemia due to type 2 diabetes mellitus Hyperlipidemia Left shoulder pain Non-smoker Non-toxic goiter Obesity Obstructive sleep apnea Osteoarthritis Osteoporosis Personal history of colonic polyps Rheumatoid arthritis RIGHT FOOT HEEL SPUR Right shoulder pain Routine health maintenance Seasonal allergies Seizure disorder Seizures Shortness of breath on exertion Sleep apnea Therapeutic drug monitoring Type 2 diabetes mellitus Urinary frequency Urinary frequency Wears glasses Home Medications multivitamin 1 tab PO DAILY vitamin 05/20/19 [History Last Taken 12/31/21] blood-glucose meter (True Metrix Air Glucose Meter kit) #1 ea 02/03/20 [Rx Last Taken Unknown] calcium citrate 200 mg (950 mg) tablet 200 mg PO BID supplement 05/21/20 [History Last Taken 12/31/21] disability placard #1 ea 06/27/20 [Rx Last Taken Unknown] aspirin 81 mg tablet,delayed release (Adult Low Dose Aspirin) 81 mg PO DAILY heart 08/13/20 [History Last Taken 12/31/21] blood sugar diagnostic (True Metrix Glucose Test Strip) #100 ea 07/17/21 [Rx Last Taken Unknown] atorvastatin 80 mg tablet 80 mg PO QHS cholesterol 01/02/22 [History Last Taken 12/31/21] clopidogrel 75 mg tablet 75 mg PO DAILY heart 01/02/22 [History Last Taken 01/01/22] isosorbide mononitrate 30 mg tablet,extended release 24 hr 30 mg PO DAILY chest pain 01/02/22 [History Last Taken 12/31/21] losartan 50 mg tablet 50 mg PO BID blood pressure 01/02/22 [History Last Taken 12/31/21] divalproex 250 mg tablet,extended release 24 hr 500 mg PO DAILY seziures 01/10/22 [History Last Taken Unknown] divalproex 500 mg tablet,delayed release (Depakote) 500 mg PO BID #60 tabs 03/14/22 [Rx Last Taken Unknown] hydrocodone-acetaminophen 5-325mg 5mg-325mg 1 tab PO Q6H PRN PRN Pain 3 days #10 TABLETS 03/29/22 [Rx Last Taken Unknown] carvedilol 12.5 mg tablet 12.5 mg PO BID heart rate #180 tabs 04/02/22 [Rx Last Taken Unknown] hydroxychloroquine 200 mg tablet 200 mg PO BIDCM arthritis #60 tabs 04/02/22 [Rx Last Taken Unknown] lancets 33 gauge (BD Ultra Fine Lancets) 04/02/22 [History Last Taken Unknown] sitagliptin phosphate 100 mg tablet (Januvia) 100 mg PO DAILY #90 tabs 04/02/22 [Rx Last Taken Unknown] amoxicillin 875 mg-potassium clavulanate 125 mg tablet 1 tab PO BID #14 tabs 05/16/22 [Rx Last Taken Unknown] benzonatate 200 mg capsule 200 mg PO TID PRN cough #30 caps 05/16/22 [Rx Last Taken Unknown] guaifenesin 400 mg tablet 400 mg PO TID PRN congestion, cough #30 tabs 05/16/22 [Rx Last Taken Unknown] denosumab 60 mg/mL subcutaneous syringe (Prolia) 60 mg subcut [id number] #1 mL 05/20/22 [Rx Last Taken Unknown] cefdinir 300 mg capsule 300 mg PO BID #13 caps 06/06/22 [Rx Last Taken Unknown] Allergy/AdvReac Type Severity Reaction Status Date / Time prednisone AdvReac Nausea Verified 05/06/22 13:25 Family History Grandmother Alcoholism Cancer Arthritis Mother Alcoholism Diabetes blood clots Hypertension Grandfather Heart disease Sister Thyroid disorder Other Breast cancer Cervical cancer Colon cancer Surgical History H/O: hysterectomy History of cardiac catheterization History of carpal tunnel surgery History of section History of coronary artery stent placement (03/22/18) History of left heart catheterization (09/20/18) Social History Smoking Status: Never smoker second hand exposure: No alcohol intake: current alcohol intake frequency: holidays/special occasions only substance use type: does not use what type of physical activity do you participate in: none ROS ROS ED Constitutional Constitutional ED: Denies chills, fever(s) or sweats Eyes Eyes: Denies change in vision ENT ENT ED: Denies dysphagia or sore throat Cardiovascular Cardiovascular: Reports chest pain; Denies leg edema, palpitations or racing heartbeat Respiratory/Chest Respiratory/Chest: Denies cough, dyspnea or dyspnea on exertion Gastrointestinal Gastrointestinal: Denies abdominal pain, diarrhea, nausea or vomiting Genitourinary Genitourinary ED: Denies dysuria, hematuria or urinary frequency Musculoskeletal Musculoskeletal: Reports back pain; Denies extremity pain or neck pain Integumentary Denies rash or wounds Neurologic Neurologic: Reports other Details: Seizure ; Denies headache(s), paresthesias or weakness EXAM Physical Exam Const Vital Signs: 06/06/22 09:11 06/06/22 10:44 06/06/22 12:27 Temperature 98.1 F Temperature Source Oral Pulse Rate 131 H 106 H 90 Respiratory Rate 16 22 H 16 Blood Pressure 143/109 H 134/78 H 139/75 H Blood Pressure Mean 120 96 96 Pulse Ox 99 100 98 Oxygen Delivery Method Room Air Room Air Room Air 06/06/22 13:04 06/06/22 14:05 Temperature Temperature Source Pulse Rate 79 Respiratory Rate 18 Blood Pressure 133/70 H Blood Pressure Mean 91 Pulse Ox Oxygen Delivery Method Positive well nourished and well developed Constitutional Narrative: Slightly confused General Appearance ED: well developed and NAD HEENT Reports moist mucous membranes HEENT Narrative: Small tongue abrasion right lateral, no active bleeding. normocephalic and atraumatic Eyes PERRL, EOMs intact bilaterally and conjunctivae normal General Eye ED: Yes normal appearance of both eyes Neck no lymphadenopathy and supple General: Negative for tenderness Chest Wall Chest: Negative for tenderness Resp normal respiratory effort and normal air movement Effort and Inspection: symmetric chest movement; Negative for respiratory distress Cardio regular rate, regular rhythm and no murmurs Peripheral Pulses: pulses 2+ throughout GI normal to inspection, nondistended, normoactive bowel sounds and non-tender Palpation: Negative for guarding or rebound tenderness present Back/Spine no CVA tenderness and no thoracic nor lumbar tenderness Extremity normal to inspection General Extremety ED: Negative for edema or tenderness General Extremity: Negative for edema Neuro oriented x3, CN's II-XII intact bilaterally and no sensory deficits noted Sensorium / Orientation: awake and alert Skin no rashes or lesions noted and no wounds MDM MDM MDM Narrative Medical decision making narrative: Patient presenting with a breakthrough seizure as she was postictal. Differential would be noncompliance versus infection induced due to her symptoms. Depakote level obtained which was therapeutic. She reported chest pain on arrival EKG was sinus tachycardia. She is reporting cough. She given fluids. Heart rate improving. Treated for her pain symptoms. Cardiac work-up troponin negative x2 therefore per algorithm noncardiac in nature. Chest x-ray interpreted by myself and read by radiology concerns for increasing markings posterior left lobe concerning for pneumonia. She does have cough symptoms she is not hypoxic. Her electrolytes were normal. With her flank pain urine frequency renal stone protocol. CT flank interpreted myself at the patient no acute process. Urine with leukocytes. Urine culture sent. With patient's pneumonia findings she is covered with Omnicef twice a day for 7 days. This should cover any urine infections also. Feeling better on reevaluation she is back to her baseline. She will follow-up with her doctors with return precautions. All questions were answered. Heart rate did improve. He did show urged. Lab Data Attestation: I reviewed the patient's lab results. Labs: Laboratory Results - last 24 hr 06/06/22 06/06/22 06/06/22 10:34 10:34 10:34 WBC 5.4 RBC 3.83 L Hgb 11.9 L Hct 37.0 MCV 96.6 MCH 31.1 MCHC 32.2 RDW Std Deviation 48.0 H RDW Coeff of [place] 13.3 Plt Count 248 MPV 10.1 Immature Gran % (Auto) 0.900 Neut % (Auto) 72.8 H Lymph % (Auto) 20.4 [place] % (Auto) 4.0 Eos % (Auto) 1.5 Baso % (Auto) 0.4 Absolute Neuts (auto) 4.0 Absolute Lymphs (auto) 1.11 Nucleated RBC % 0 Sodium 142 Potassium 4.2 Chloride 107 Carbon Dioxide 26.0 Anion Gap 9 BUN 31 H Creatinine 1.06 H Estim Creat Clear Calc 39.62 Est GFR (MDRD) Af Amer 66 Est GFR (MDRD) Non-Af 55 L BUN/Creatinine Ratio 29.2 H Glucose 117 H Calcium 9.1 Total Bilirubin 0.30 AST 16 ALT 28 Alkaline Phosphatase 88 Troponin I High Sens Total Protein 7.9 Albumin 3.5 Globulin 4.4 H Albumin/Globulin Ratio 0.8 L Urine Color Urine Clarity Urine pH Ur Specific [place] Urine Protein Urine Glucose (UA) Urine Ketones Urine Occult Blood Urine Nitrite Urine Bilirubin Urine Urobilinogen Ur Leukocyte Esterase Urine RBC Urine WBC Ur Squamous Epith Cells Urine Bacteria Urine Mucus Valproic Acid 62 06/06/22 06/06/22 06/06/22 10:34 10:45 12:49 WBC RBC Hgb Hct MCV MCH MCHC RDW Std Deviation RDW Coeff of [place] Plt Count MPV Immature Gran % (Auto) Neut % (Auto) Lymph % (Auto) [place] % (Auto) Eos % (Auto) Baso % (Auto) Absolute Neuts (auto) Absolute Lymphs (auto) Nucleated RBC % Sodium Potassium Chloride Carbon Dioxide Anion Gap BUN Creatinine Estim Creat Clear Calc Est GFR (MDRD) Af Amer Est GFR (MDRD) Non-Af BUN/Creatinine Ratio Glucose Calcium Total Bilirubin AST ALT Alkaline Phosphatase Troponin I High Sens 6 14 Total Protein Albumin Globulin Albumin/Globulin Ratio Urine Color Yellow Urine Clarity Clear Urine pH 6.0 Ur Specific [place] 1.020 Urine Protein 15 H Urine Glucose (UA) Normal Urine Ketones 15 H Urine Occult Blood Negative Urine Nitrite Negative Urine Bilirubin Negative Urine Urobilinogen Normal Ur Leukocyte Esterase 100 H Urine RBC 0 SEEN Urine WBC 0 SEEN Ur Squamous Epith Cells 0-5 SEEN Urine Bacteria 0 SEEN Urine Mucus 0 SEEN Valproic Acid Radiography Diagnostic Testing: Clinical Impression(s) from Imaging Studies Chest X-Ray 06/06/22 09:30 IMPRESSION: Minimal degree of increased markings in the posterior medial segment of the left lower lobe. Follow-up recommended. Electronically Signed: Tor Artis MD at 10:44 EST , Abdomen/Pelvis CT 06/06/22 10:55 IMPRESSION: No evidence of a ureteral obstruction. Moderate amount of fecal material is seen throughout the colon. Electronically Signed: Tor Artis MD at 11:45 EST , EKG Initial EKG: Attestation: I personally reviewed and interpreted this EKG as follows: Comments: Sinus rate of [address] or T Wave Changes. Discharge Plan Triage Chief Complaint: Seizure ED Provider: Ulisses Chan Dx/Rx/DC Orders Clinical Impression: Breakthrough seizure, Chest pain, Pneumonia, Flank pain Instructions: ED Chest Pain, Noncardiac, ED Pneumonia (Adult), ED Seizure, Recurrent (Adult) Prescriptions: New cefdinir 300 mg capsule 300 mg PO BID Qty: 13 0RF No Action multivitamin Tablet 1 tab PO DAILY calcium citrate 200 mg (950 mg) tablet 200 mg PO BID aspirin [Adult Low Dose Aspirin] 81 mg tablet,delayed release (DR/EC) 81 mg PO DAILY (DME) lancets [BD Ultra Fine Lancets] 33 gauge misc See Rx Instructions .Route Rx Instructions: As directed carvedilol 12.5 mg tablet 12.5 mg PO BID Qty: 180 1RF hydroxychloroquine 200 mg tablet 200 mg PO BIDCM Qty: 60 0RF Januvia 100 mg tablet 100 mg PO DAILY Qty: 90 1RF losartan 50 mg tablet 50 mg PO BID atorvastatin 80 mg tablet 80 mg PO QHS isosorbide mononitrate 30 mg tablet extended release 24 hr 30 mg PO DAILY clopidogrel 75 mg tablet 75 mg PO DAILY divalproex 250 mg tablet extended release 24 hr 500 mg PO DAILY Rx Instructions: Take with two tabs of divalproex ER 500mg for a total dose of 1250mg once daily divalproex [Depakote] 500 mg tablet,delayed release (DR/EC) 500 mg PO BID Qty: 60 0RF hydrocodone-acetaminophen [hydrocodone-acetaminophen] 1 TABLET tablet 1 tab PO Q6H PRN PRN (Reason: Pain) 3 Days Qty: 10 0RF (DME) blood-glucose meter [True Metrix Air Glucose Meter] Kit See Rx Instructions .ROUTE .MEDSUPPLY Qty: 1 0RF Rx Instructions: As directed (DME) disability placard See Rx Instructions .ROUTE .MEDSUPPLY Qty: 1 0RF Rx Instructions: As directed, Length of time: 5 years (DME) True Metrix Glucose Test Strip Strip See Rx Instructions .ROUTE .MEDSUPPLY Qty: 100 3RF Rx Instructions: check twice a day and as needed benzonatate 200 mg capsule 200 mg PO TID PRN (Reason: cough) Qty: 30 0RF guaifenesin 400 mg tablet 400 mg PO TID PRN (Reason: congestion, cough) Qty: 30 0RF amoxicillin-pot clavulanate 875-125 mg tablet 1 tab PO BID Qty: 14 0RF Prolia 60 mg/mL syringe 60 mg subcut [id number] Qty: 1 0RF Primary Care Provider: Kannan Garcia Referrals: Kannan Garcia MD [Primary Care Provider] - 3-5 Days Activity Restrictions/Additional Instructions: Possible pneumonia concerns on x-ray. You are therapeutic with your valproic acid at 62. Cardiac work-up negative. Take antibiotic as prescribed. Follow- up with your doctors. Return if any worsening symptoms. Disposition Disposition: Home, Self Care Discharge Date/Time: 06/06/22 14:06
[2022-06-06 10:40] LABS: Absolute Lymphocyte Count 1.11 X10^3/uL (0.83-4.51); Basophil# 0.02 X10^3/uL; Basophil% 0.4 % (0-1); Eosinophil# 0.08 X10^3/uL; Eosinophils% 1.5 % (0-5); Hemoglobin 11.9 g/dL (12.0-15.0); Lymphocyte # 1.11 X10^3/ul (0.83-4.51); Lymphocyte % 20.4 % (19-41); Mean Corp Hgb Conc 32.2 g/dL (32-36); Mean Corpuscular Hgb 31.1 pg (27.0-32.0); Mean Corpuscular Volume 96.6 fL (81-99); Mean Platelet Vol. 10.1 fl (6.2-12.0); Monocyte# 0.22 X10^3/uL; NRBC Flagged by Analyzer 0 % (0-5); Neutrophil # 3.96 X10^3/uL (2.7-7.7); Neutrophil % 72.8 % (47-70); Platelet Count 248 K/mm3 (150-450); RBC Distribution Width CV 13.3 % (11.6-14.6); Red Blood Count 3.83 M/mm3 (4.2-5.4); White Blood Count 5.4 K/mm3 (4.4-11.0)
[2022-06-06 10:44] VITALS: BP 134/78; PULSE 106; RESP 22; O2SAT 100
[2022-06-06 10:50] LABS: Bacteria 0 SEEN /hpf (None Seen); Mucous, Urine 0 SEEN /hpf (<or=2+); Red Blood Cells-Urine 0 SEEN /hpf (0-5); White Blood Cells 0 SEEN /hpf (0-5)
[2022-06-06 10:51] LABS: Color, Urine Yellow (Yellow); Glucose, Dipstick Normal (Normal); Ketone-Dipstick 15 mg/dl (Negative); Leukocyte Esterase-Dipstick 100 /ul (Negative); Nitrite-Dipstick Negative (Negative); Occult Blood-Urine Negative /ul (Negative); Protein-Dipstick 15 mg/dl (Negative); Urine Bilirubin Dipstick Negative (Negative); Urine Clarity Clear (Clear); Urine Urobilinogen Normal (Normal)
--- NOTE | 2022-06-06 10:55 | CT_ITS ---
STUDY: CT ABDOMEN AND PELVIS WITHOUT CONTRAST REASON FOR EXAM: Female, 71 years old. Left flank pain. RADIATION DOSAGE (If Supplied By Facility): CTDIvol = ( 9.72 ) mGy, DLP = ( 412.58 ) mGycm TECHNIQUE: Transaxial images were obtained from the dome of the diaphragm to the symphysis pubis without oral contrast, and without intravenous contrast. Sagittal and coronal images were reconstructed. Individualized dose optimization techniques were used for this CT. COMPARISON: Comparison is made with prior study dated 10/08/2020. FINDINGS: Stable minimal increased linear markings at the lung bases suggestive of scarring. Coronary artery calcification. Normal liver. Normal gallbladder and extrahepatic biliary system. Normal spleen. Normal pancreas. Normal bilateral adrenal glands. Normal right kidney. Normal left kidney. Normal visualized stomach. Normal small intestine. A moderate amount of fecal material is seen in the rectosigmoid colon. The appendix is visualized and appears normal. There is diffuse atherosclerotic calcification of the abdominal aorta and its major visceral branches, without a demonstrated aneurysm. Normal inferior vena cava. Normal retroperitoneum. Normal urinary bladder. There is absence of the uterus consistent with a prior hysterectomy. Normal abdominal wall. There are mild degenerative changes of the visualized lumbar spine. CT/Abdomen/Pelvis without Cont IMPRESSION: No evidence of a ureteral obstruction. Moderate amount of fecal material is seen throughout the colon. Electronically Signed: Tor Artis MD at 11:45 EST ,
[2022-06-06 10:56] LABS: ALB/GLOB Ratio 0.8 RATIO (0.9-2.4); AST(SGOT) 16 U/L (15-37); Alanine Aminotransfer ALT/SGPT 28 U/L (13-56); Albumin, Serum 3.5 g/dL (3.2-5.0); Alkaline Phosphatase 88 U/L (45-117); Anion Gap 9 (5-15); BUN 31 mg/dL (7-18); BUN/Creat Ratio 29.2 RATIO (10-20); Calcium,Total 9.1 mg/dL (8.5-10.1); Chloride 107 mmol/L (98-107); Creatinine, Serum 1.06 mg/dL (0.55-1.02); EST Glomerular Filtration Rate 55 mL/min (>60); Est Glom Filt Rate - Afr Amer 66 mL/min (>60); Estimated Creatinine Clearance 39.62 ml/min; Globulin 4.4 g/dL (2.2-4.2); Glucose 117 mg/dL (74-106); Potassium 4.2 mmol/L (3.5-5.1); Protein, Total 7.9 g/dL (6.4-8.2); Sodium Level 142 mmol/L (136-145)
[2022-06-06 10:58] LABS: Squamous Epithelial Cells - UA 0-5 SEEN /hpf (5-10)
[2022-06-06 11:08] LABS: Valproic Acid (Depakene) Level 62 ug/mL (50-100)
[2022-06-06] MEDS: Morphine 4 MG/ML Syringe IM ×2 (11:11→12:22)
[2022-06-06 11:40] LABS: Troponin-I HS 6 pg/mL (3.0-54.0)
[2022-06-06] MEDS: Ondansetron ODT 4 MG Tablet PO (12:22)
[2022-06-06 12:27] VITALS: BP 139/75; PULSE 90; RESP 16; O2SAT 98
[2022-06-06 13:04] VITALS: BP 133/70; PULSE 79
[2022-06-06 13:16] LABS: Troponin-I HS 14 pg/mL (3.0-54.0)
[2022-06-06] MEDS: Cefdinir 300 MG Capsule PO (14:00)
[2022-06-06 14:05] VITALS: RESP 18
== END 2022-06-06 14:06 | disposition home or self-care (01) ==
PROVIDERS: Emergency Provider Emergency Medicine; PCP Internal Medicine; Visit Provider Emergency Medicine
DX: J18.9 Pneumonia, unspecified organism (principal); I11.0 Hypertensive heart disease with heart failure; I50.32 Chronic diastolic (congestive) heart failure; R56.9 Unspecified convulsions; E11.9 Type 2 diabetes mellitus without complications; R41.0 Disorientation, unspecified; M54.9 Dorsalgia, unspecified; E78.5 Hyperlipidemia, unspecified; I25.10 Atherosclerotic heart disease of native coronary artery without angina pectoris; R07.9 Chest pain, unspecified; R10.9 Unspecified abdominal pain
CPT/HCPCS: 36415; 71045; 74176; 80053; 80164; 81001; 84484; 85025; 87086; 87088; 93005; 96372; 99285

== ENCOUNTER 2022-06-07 17:40 | Emergency (ER) | payer MEDICARE, SELFPAY ==
[2020-12-31 12:33] VITALS: BMI 32.7
[2022-06-07 17:41] VITALS: BP 180/85; PULSE 90; RESP 18; TEMP 36.6; O2SAT 100; BMI 35.6
--- NOTE | 2022-06-07 18:05 | EX.ED.GENINJ ---
HPI History of Present Illness Chief Complaint: Chest Other Detail of Chief Complaint: Left-sided chest pain and shoulder pain status post seizure Informant: patient Onset/Context/Timing Onset: Yesterday (Patient was seen for breakthrough seizure now presents with chest and shoulder pain) Mechanism/Context: Blunt Injury Location of pain/injuries: Left shoulder Quality of Pain: Dull and Aching Location: Left side of rib cage and shoulder. Current Severity: Mild Maximum Severity: Moderate Worsened by: Breathing and movement of left upper extremity Associated Symptoms Associated Symptoms: Negative for Parasthesias, Weakness, Loss of function, Inability to ambulate, Loss of consciousness or Amnesia Narrative Narrative: Patient is a 71-year-old woman with history of atherosclerotic heart disease, cardiac stents, chronic diastolic congestive heart failure, essential hypertension, hyperlipidemia, obesity, type 2 diabetes, obstructive sleep apnea who presents today because of left-sided chest pain that she localizes over ribs 5 through 8 anterior mid clavicular line to the posterior axillary line. She states there is no bruising. It hurts to breathe and move. She has increased pain with movement of her left arm. She denies paresthesia, anesthesia or motor weakness. She denies headache. Denies visual, ocular auditory symptoms. She denies nausea, vomit or diarrhea. She denies urologic symptoms. Tetanus Immunization: 5-10 years Recent Illness/Hospitalization: Yes [facility] Medical History Abdominal pain Acute back pain Anemia Arthritis Atherosclerotic heart disease of [place] coronary artery without angina pectoris Cardiology follow-up encounter Cervical radiculopathy Chronic diastolic CHF (congestive heart failure) Colon cancer screening Compression fracture of lumbar spine, non-traumatic Congestive heart failure (CHF) Conversion disorder Cough CPAP (continuous positive airway pressure) dependence Diabetes Diabetes mellitus type 2 in nonobese Diabetes type 2, controlled Dysuria Dysuria Essential (primary) hypertension Foreign body in stomach GERD (gastroesophageal reflux disease) Health care maintenance Hives Hyperglycemia due to type 2 diabetes mellitus Hyperlipidemia Left shoulder pain Non-smoker Non-toxic goiter Obesity Obstructive sleep apnea Osteoarthritis Osteoporosis Personal history of colonic polyps Rheumatoid arthritis RIGHT FOOT HEEL SPUR Right shoulder pain Routine health maintenance Seasonal allergies Seizure disorder Seizures Shortness of breath on exertion Sleep apnea Therapeutic drug monitoring Type 2 diabetes mellitus Urinary frequency Urinary frequency Wears glasses Home Medications multivitamin 1 tab PO DAILY vitamin 05/20/19 [History Last Taken 12/31/21] blood-glucose meter (True Metrix Air Glucose Meter kit) #1 ea 02/03/20 [Rx Last Taken Unknown] calcium citrate 200 mg (950 mg) tablet 200 mg PO BID supplement 05/21/20 [History Last Taken 12/31/21] disability placard #1 ea 06/27/20 [Rx Last Taken Unknown] aspirin 81 mg tablet,delayed release (Adult Low Dose Aspirin) 81 mg PO DAILY heart 08/13/20 [History Last Taken 12/31/21] blood sugar diagnostic (True Metrix Glucose Test Strip) #100 ea 07/17/21 [Rx Last Taken Unknown] atorvastatin 80 mg tablet 80 mg PO QHS cholesterol 01/02/22 [History Last Taken 12/31/21] clopidogrel 75 mg tablet 75 mg PO DAILY heart 01/02/22 [History Last Taken 01/01/22] isosorbide mononitrate 30 mg tablet,extended release 24 hr 30 mg PO DAILY chest pain 01/02/22 [History Last Taken 12/31/21] losartan 50 mg tablet 50 mg PO BID blood pressure 01/02/22 [History Last Taken 12/31/21] divalproex 250 mg tablet,extended release 24 hr 500 mg PO DAILY seziures 01/10/22 [History Last Taken Unknown] divalproex 500 mg tablet,delayed release (Depakote) 500 mg PO BID #60 tabs 03/14/22 [Rx Last Taken Unknown] hydrocodone-acetaminophen 5-325mg 5mg-325mg 1 tab PO Q6H PRN PRN Pain 3 days #10 TABLETS 03/29/22 [Rx Last Taken Unknown] carvedilol 12.5 mg tablet 12.5 mg PO BID heart rate #180 tabs 04/02/22 [Rx Last Taken Unknown] hydroxychloroquine 200 mg tablet 200 mg PO BIDCM arthritis #60 tabs 04/02/22 [Rx Last Taken Unknown] lancets 33 gauge (BD Ultra Fine Lancets) 04/02/22 [History Last Taken Unknown] sitagliptin phosphate 100 mg tablet (Januvia) 100 mg PO DAILY #90 tabs 04/02/22 [Rx Last Taken Unknown] amoxicillin 875 mg-potassium clavulanate 125 mg tablet 1 tab PO BID #14 tabs 05/16/22 [Rx Last Taken Unknown] benzonatate 200 mg capsule 200 mg PO TID PRN cough #30 caps 05/16/22 [Rx Last Taken Unknown] guaifenesin 400 mg tablet 400 mg PO TID PRN congestion, cough #30 tabs 05/16/22 [Rx Last Taken Unknown] denosumab 60 mg/mL subcutaneous syringe (Prolia) 60 mg subcut [id number] #1 mL 05/20/22 [Rx Last Taken Unknown] cefdinir 300 mg capsule 300 mg PO BID #13 caps 06/06/22 [Rx Last Taken Unknown] hydrocodone-acetaminophen 5-325mg 5mg-325mg 1 tab PO Q6H PRN PRN Pain 3 days #10 TABLETS 06/07/22 [Rx Last Taken Unknown] Allergy/AdvReac Type Severity Reaction Status Date / Time prednisone AdvReac Nausea Verified 06/07/22 17:44 Family History Grandmother Alcoholism Cancer Arthritis Mother Alcoholism Diabetes blood clots Hypertension Grandfather Heart disease Sister Thyroid disorder Other Breast cancer Cervical cancer Colon cancer Surgical History H/O: hysterectomy History of cardiac catheterization History of carpal tunnel surgery History of section History of coronary artery stent placement (03/22/18) History of left heart catheterization (09/20/18) Social History Smoking Status: Never smoker second hand exposure: No alcohol intake: current alcohol intake frequency: holidays/special occasions only substance use type: does not use what type of physical activity do you participate in: none ROS ROS ED Constitutional Constitutional ED: Denies chills, fever(s), subjective, sweats or weight loss Eyes Eyes: Denies blurry vision or change in vision ENT ENT ED: Denies ear pain, rhinorrhea or sore throat Cardiovascular Cardiovascular: Reports chest pain; Denies palpitations, paroxysmal nocturnal dyspnea or racing heartbeat Respiratory/Chest Respiratory/Chest: Reports cough; Denies dyspnea, dyspnea on exertion, paroxysmal nocturnal dyspnea or sputum Gastrointestinal Gastrointestinal: Denies abdominal pain, diarrhea, melena, nausea or vomiting Genitourinary Genitourinary ED: Denies dysuria, hematuria or urinary frequency Musculoskeletal Musculoskeletal: Denies arthralgias, back pain, myalgias or neck pain Integumentary Denies rash Neurologic Neurologic: Denies headache(s), paresthesias or weakness Hematologic/Lymphatic Hematologic/Lymphatic: Denies easy bleeding or easy bruising EXAM Physical Exam Const Vital Signs: 06/07/22 17:41 Temperature 97.9 F Temperature Source Temporal Pulse Rate 90 Respiratory Rate 18 Blood Pressure 180/85 H Blood Pressure Mean 116 Pulse Ox 100 Oxygen Delivery Method Room Air Positive well nourished and obese Constitutional Narrative: Patient appears uncomfortable. Nutritional Appearance: obese HEENT HEENT Narrative: Head is atraumatic normocephalic. There is no clinical signs of basilar skull fracture. There is no septal deviation hematoma. There is no dental trauma. Eyes PERRL and EOMs intact bilaterally General Eye ED: Yes other Other Details: Conjunctive is pink. Sclera is anicteric. Chest Wall inspection of chest normal and palpation of chest normal Chest Narrative: There is pain the patient over the left chest wall. There is no crepitus or subcutaneous air appreciated. Pain is from the mid anterior clavicular line to the posterior axillary line over ribs 5, 6, 7 and 8. Resp normal respiratory effort and clear to auscultation bilaterally Effort and Inspection: pain with movement Cardio regular rhythm, S1 normal heart sound, S2 normal heart sound and no murmurs Cardio Narrative: Negative Tyler's crunch. Rate: regular rate GI normal to inspection, nondistended, normoactive bowel sounds, non-tender, non-distended and no masses Auscultation: normoactive bowel sounds Palpation: soft Back/Spine General Back: Negative for CVA tenderness Thoracic Spine / Upper Back: Negative for thoracic spinal tenderness Extremity normal to inspection Neuro oriented x3, CN's II-XII intact bilaterally and moves all extremities [place] Coma Scale: document GCS findings Spontaneous Oriented Sensorium / Orientation: alert Psych mental status grossly normal and thought process normal Skin no rashes or lesions noted, no wounds, skin turgor normal and no jaundice Trauma: Negative for abrasion MDM MDM MDM Narrative Medical decision making narrative: Outside records reviewed. Yesterday's ER record was reviewed. Since patient had a chest x-ray and there was no evidence of fractured ribs or pneumothorax this was not repeated. Furthermore patient had a CT that revealed no evidence of pneumothorax, hemothorax or lower rib fractures where she is complaining of pain. There was no evidence of hepatic or splenic injury. On the chest x-ray there was no evidence of subluxation, dislocation of the shoulder or evidence of fracture. For this reason radiologic imaging was not repeated. There was comment that she may have a infiltrate on the left. She was treated for pneumonia. Since patient has no signs or symptoms of hyperglycemia basic metabolic panel was not obtained. Review of outside records indicates patient does have history of obstructive sleep apnea as well as moderately controlled diabetes. Patient was instructed how to use an incentive spirometer and discharged with opiate analgesics. She was not treated with NSAIDs because of her history of hypertension diabetes and GERD. Rhythm Strip Rhythm Strip: Sinus Rhythm Rate: 88 Ectopy: None Discharge Plan Triage Chief Complaint: Chest Other ED Provider: Ezekiel Patel Dx/Rx/DC Orders Clinical Impression: Contusion of back wall of thorax, GERD (gastroesophageal reflux disease), Breakthrough seizure, Essential (primary) hypertension, Type 2 diabetes mellitus Instructions: ED Chest Wall Contusion Prescriptions: New hydrocodone-acetaminophen [hydrocodone-acetaminophen] 5-325 mg tablet 1 tab PO Q6H PRN PRN (Reason: Pain) 3 Days Qty: 10 0RF No Action multivitamin Tablet 1 tab PO DAILY calcium citrate 200 mg (950 mg) tablet 200 mg PO BID aspirin [Adult Low Dose Aspirin] 81 mg tablet,delayed release (DR/EC) 81 mg PO DAILY (DME) lancets [BD Ultra Fine Lancets] 33 gauge misc See Rx Instructions .Route Rx Instructions: As directed carvedilol 12.5 mg tablet 12.5 mg PO BID Qty: 180 1RF hydroxychloroquine 200 mg tablet 200 mg PO BIDCM Qty: 60 0RF Januvia 100 mg tablet 100 mg PO DAILY Qty: 90 1RF losartan 50 mg tablet 50 mg PO BID atorvastatin 80 mg tablet 80 mg PO QHS isosorbide mononitrate 30 mg tablet extended release 24 hr 30 mg PO DAILY clopidogrel 75 mg tablet 75 mg PO DAILY divalproex 250 mg tablet extended release 24 hr 500 mg PO DAILY Rx Instructions: Take with two tabs of divalproex ER 500mg for a total dose of 1250mg once daily divalproex [Depakote] 500 mg tablet,delayed release (DR/EC) 500 mg PO BID Qty: 60 0RF hydrocodone-acetaminophen [hydrocodone-acetaminophen] 1 TABLET tablet 1 tab PO Q6H PRN PRN (Reason: Pain) 3 Days Qty: 10 0RF cefdinir 300 mg capsule 300 mg PO BID Qty: 13 0RF (DME) blood-glucose meter [True Metrix Air Glucose Meter] Kit See Rx Instructions .ROUTE .MEDSUPPLY Qty: 1 0RF Rx Instructions: As directed (DME) disability placard See Rx Instructions .ROUTE .MEDSUPPLY Qty: 1 0RF Rx Instructions: As directed, Length of time: 5 years (DME) True Metrix Glucose Test Strip Strip See Rx Instructions .ROUTE .MEDSUPPLY Qty: 100 3RF Rx Instructions: check twice a day and as needed benzonatate 200 mg capsule 200 mg PO TID PRN (Reason: cough) Qty: 30 0RF guaifenesin 400 mg tablet 400 mg PO TID PRN (Reason: congestion, cough) Qty: 30 0RF amoxicillin-pot clavulanate 875-125 mg tablet 1 tab PO BID Qty: 14 0RF Prolia 60 mg/mL syringe 60 mg subcut [id number] Qty: 1 0RF Primary Care Provider: Kannan Garcia Referrals: Kannan Garcia MD [Primary Care Provider] - 3-5 Days if not improving Activity Restrictions/Additional Instructions: Apply ice to your left chest wall and shoulder 6-10 times a day Disposition Disposition: Home, Self Care
[2022-06-07] MEDS: HYDROcodone Bitartrate/Apap 5/325 Tablet PO (18:14)
--- NOTE | 2022-06-07 18:51 | ED.RN ---
RESPIRATORY TO INSTRUCT PT ON INCENTIVE SPIROMETER. PT THEN DC'D. PT REQUESTING MORE MEDICATION. DR SHEPHERD.
--- NOTE | 2022-06-07 18:58 | ED.RN ---
PT INSTRUCTED ON USE OF INCENTIVE SPIROMETER
== END 2022-06-07 18:59 | disposition home or self-care (01) ==
LOC: ED 18:20
PROVIDERS: Emergency Provider Emergency Medicine; PCP Internal Medicine; Visit Provider Emergency Medicine
DX: S20.229A Contusion of unspecified back wall of thorax, initial encounter (principal); M06.9 Rheumatoid arthritis, unspecified; I11.0 Hypertensive heart disease with heart failure; I50.32 Chronic diastolic (congestive) heart failure; G40.909 Epilepsy, unspecified, not intractable, without status epilepticus; E11.9 Type 2 diabetes mellitus without complications; X58.XXXA Exposure to other specified factors, initial encounter; M25.512 Pain in left shoulder; M79.602 Pain in left arm; I25.10 Atherosclerotic heart disease of native coronary artery without angina pectoris; E78.5 Hyperlipidemia, unspecified; K21.9 Gastro-esophageal reflux disease without esophagitis; G47.33 Obstructive sleep apnea (adult) (pediatric); E66.9 Obesity, unspecified; Z79.02 Long term (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 of antithrombotics/antiplatelets; Z79.82 Long term (current) use of aspirin; Z79.899 Other long term (current) drug therapy; Z95.5 Presence of coronary angioplasty implant and graft
CPT/HCPCS: 99283

== ENCOUNTER 2022-08-13 21:56 | Emergency (ER) | payer MEDICARE, SELFPAY ==
[2020-12-31 12:33] VITALS: BMI 32.7
[2022-08-13 21:57] VITALS: BP 188/79; PULSE 132; RESP 31; TEMP 36.8; O2SAT 98; BMI 35.2
--- NOTE | 2022-08-13 22:27 | CT_ITS ---
INDICATION: headache EXAMINATION: CT BRAIN - CT Head or Brain W/O Contrast Injection TECHNIQUE: Multiple axial images were obtained of the head without intravenous contrast. A radiation dose optimization technique was used for this scan. IV Contrast dosage and agent: None. RADIATION DOSAGE (If Supplied By Facility): CTDIvol = ( 47.06 ) mGy, DLP = ( 872.68 ) mGycm COMPARISON: FINDINGS: BRAIN PARENCHYMA: No intra- or extra-axial hemorrhage. No evidence of acute infarct. No intracranial mass or mass effect. There is preservation of the [place]/white matter interface. Posterior fossa structures are unremarkable. CSF SPACES: Appropriate for age. No hydrocephalus. Basal cisterns are patent. CALVARIUM, SKULL BASE, PARANASAL SINUSES AND MASTOID AIR CELLS: Clear. No discrete lytic or blastic abnormalities. ORBITS: Both globes, extraocular muscles, optic nerves and retrobulbar fat appear unremarkable. ASPECTS Score for Acute Strokes: 10 CT/Brain/Head without Contrast IMPRESSION: Negative Brain CT without contrast. Electronically Signed: Taco Pozo MD at 23:33 EDT ,
--- NOTE | 2022-08-13 22:27 | EKG12_ITS ---
Test Reason : SIEZURE Blood Pressure : / mmHG Vent. Rate : 100 BPM Atrial Rate : 100 BPM P-R Int : 152 ms QRS Dur : 080 ms QT Int : 364 ms P-R-T Axes : 060 016 028 degrees QTc Int : 469 ms Normal sinus rhythm Normal ECG Confirmed by KEILY CROWELL ([id number]), index editor CLAUDIA HECTOR ([id number]) on 08/19/2022 7:33:13 AM Referred By: Confirmed By:KEILY CROWELL
--- NOTE | 2022-08-13 22:29 | EDS_ITS ---
HPI History of Present Illness Chief Complaint: Seizure Narrative Narrative: 71-year-old female presents status post seizure. This was unwitnessed. Her son states he heard some noise coming from her room and it appeared that she was having seizure-like activity. He estimates about 2 minutes of seizure-like activity. Patient was postictal. She is alert and talking now. She has history of seizure disorder. She is on Depakote. Patient states he has had breakthrough seizures in the past. 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 She complains of headache, and states that she does not usually have a headache after seizure. No fever, chills. [facility] Medical History Abdominal pain Acute back pain Anemia Arthritis Atherosclerotic heart disease of [place] coronary artery without angina pectoris Cardiology follow-up encounter Cervical radiculopathy Chronic diastolic CHF (congestive heart failure) Colon cancer screening Compression fracture of lumbar spine, non-traumatic Congestive heart failure (CHF) Conversion disorder Cough CPAP (continuous positive airway pressure) dependence Diabetes Diabetes mellitus type 2 in nonobese Diabetes type 2, controlled Dysuria Dysuria Essential (primary) hypertension Foreign body in stomach GERD (gastroesophageal reflux disease) Health care maintenance Hives Hyperglycemia due to type 2 diabetes mellitus Hyperlipidemia Left shoulder pain Non-smoker Non-toxic goiter Obesity Obstructive sleep apnea Osteoarthritis Osteoporosis Personal history of colonic polyps Rheumatoid arthritis RIGHT FOOT HEEL SPUR Right shoulder pain Routine health maintenance Seasonal allergies Seizure disorder Seizures Shortness of breath on exertion Sleep apnea Therapeutic drug monitoring Type 2 diabetes mellitus Urinary frequency Urinary frequency Wears glasses Home Medications multivitamin 1 tab PO DAILY vitamin 05/20/19 [History Last Taken 12/31/21] blood-glucose meter (True Metrix Air Glucose Meter kit) #1 ea 02/03/20 [Rx Last Taken Unknown] calcium citrate 200 mg (950 mg) tablet 200 mg PO BID supplement 05/21/20 [History Last Taken 12/31/21] disability placard #1 ea 06/27/20 [Rx Last Taken Unknown] aspirin 81 mg tablet,delayed release (Adult Low Dose Aspirin) 81 mg PO DAILY heart 08/13/20 [History Last Taken 12/31/21] blood sugar diagnostic (True Metrix Glucose Test Strip) #100 ea 07/17/21 [Rx Last Taken Unknown] clopidogrel 75 mg tablet 75 mg PO DAILY heart 01/02/22 [History Last Taken 01/01/22] isosorbide mononitrate 30 mg tablet,extended release 24 hr 30 mg PO DAILY chest pain 01/02/22 [History Last Taken 12/31/21] losartan 50 mg tablet 50 mg PO BID blood pressure 01/02/22 [History Last Taken 12/31/21] divalproex 250 mg tablet,extended release 24 hr 500 mg PO DAILY seziures 01/10/22 [History Last Taken Unknown] divalproex 500 mg tablet,delayed release (Depakote) 500 mg PO BID #60 tabs 03/14/22 [Rx Last Taken Unknown] carvedilol 12.5 mg tablet 12.5 mg PO BID heart rate #180 tabs 04/02/22 [Rx Last Taken Unknown] lancets 33 gauge (BD Ultra Fine Lancets) 04/02/22 [History Last Taken Unknown] sitagliptin phosphate 100 mg tablet (Januvia) 100 mg PO DAILY #90 tabs 04/02/22 [Rx Last Taken Unknown] guaifenesin 400 mg tablet 400 mg PO TID PRN congestion, cough #30 tabs 05/16/22 [Rx Last Taken Unknown] denosumab 60 mg/mL subcutaneous syringe (Prolia) 60 mg subcut [id number] #1 mL 05/20/22 [Rx Last Taken Unknown] hydrocodone-acetaminophen 5-325mg 5mg-325mg 1 tab PO Q6H PRN PRN Pain 3 days #10 TABLETS 06/07/22 [Rx Last Taken Unknown] atorvastatin 80 mg tablet 80 mg PO QHS cholesterol #90 tabs 06/11/22 [Rx Last Taken Unknown] hydroxychloroquine 200 mg tablet See Rx Instructions .Route .COMPLEX #60 tabs 06/12/22 [Rx Last Taken Unknown] Allergy/AdvReac Type Severity Reaction Status Date / Time prednisone AdvReac Nausea Verified 08/13/22 22:02 Family History Grandmother Alcoholism Cancer Arthritis Mother Alcoholism Diabetes blood clots Hypertension Grandfather Heart disease Sister Thyroid disorder Other Breast cancer Cervical cancer Colon cancer Surgical History H/O: hysterectomy History of cardiac catheterization History of carpal tunnel surgery History of section History of coronary artery stent placement (03/22/18) History of left heart catheterization (09/20/18) Social History Smoking Status: Never smoker second hand exposure: No alcohol intake: current alcohol intake frequency: holidays/special occasions only substance use type: does not use what type of physical activity do you participate in: none ROS ROS ED Constitutional Constitutional ED: Denies chills or fever(s) Eyes Eyes: Denies change in vision ENT ENT ED: Denies rhinorrhea or sore throat Cardiovascular Cardiovascular: Denies chest pain or palpitations Respiratory/Chest Respiratory/Chest: Denies cough or dyspnea Gastrointestinal Gastrointestinal: Denies nausea or vomiting Genitourinary Genitourinary ED: Denies dysuria or hematuria Musculoskeletal Musculoskeletal: Denies arthralgias Neurologic Neurologic: Reports headache(s); Denies paresthesias or weakness Psychiatric Psychiatric: Denies anxiety or depression EXAM Physical Exam Const Vital Signs: 08/13/22 21:57 08/14/22 00:00 Temperature 98.2 F Temperature Source Temporal Pulse Rate 132 H 89 Respiratory Rate 31 H 17 Blood Pressure 188/79 H 126/63 H Blood Pressure Mean 115 84 Pulse Ox 98 99 Oxygen Delivery Method Room Air Room Air Positive well nourished General Appearance ED: NAD; Negative for pallor HEENT Reports moist mucous membranes Negative for trauma Eyes PERRL and EOMs intact bilaterally Chest Wall inspection of chest normal Resp normal respiratory effort and clear to auscultation bilaterally Auscultation: Negative for rales, rhonchi or wheezes Cardio regular rhythm Rate: tachycardic GI normal to inspection, nondistended, normoactive bowel sounds Neuro oriented x3 and CN's II-XII intact bilaterally Sensorium / Orientation: alert Motor Exam: strength 5/5 throughout Skin General Skin Exam: Negative for jaundice or pallor MDM MDM MDM Narrative Medical decision making narrative: Patient presenting with breakthrough seizure. Differential at this point is breakthrough seizure, intracranial hemorrhage, migraine headaches, electrolyte abnormality, dehydration. Patient treated with migraine cocktail.. IV fluids were given. Will obtain CT of the brain and basic lab work. CBC shows no leukocytosis. Hemoglobin however stable her platelets are normal. Liver function, renal function appear to be normal. Glucose [address] brain negative for acute intracranial findings. Patient initially tachycardic so I did obtain an EKG which was sinus rhythm at 100 bpm without sign of ischemic change or dysrhythmia. Depakote level was 38 and therefore subtherapeutic. Patient given 250 mg of Depakote. She states she already took her Depakote this evening. I recommended to her that she follow-up with her primary care as this is who manages her Depakote levels. Patient's headache is improved after migraine cocktail. All questions were answered. Patient discharged home in stable condition. Impression: 1. Breakthrough seizure 2. Subtherapeutic Depakote level 3. Tachycardia resolved 4. Headache Lab Data Labs: Laboratory Results - last 24 hr 08/13/22 08/13/22 08/13/22 22:35 22:35 22:35 WBC 6.2 RBC 4.08 L Hgb 12.8 Hct 40.5 MCV 99.3 H MCH 31.4 MCHC 31.6 L RDW Std Deviation 49.6 H RDW Coeff of [place] 13.5 Plt Count 207 MPV 10.6 Immature Gran % (Auto) 0.200 Neut % (Auto) 45.6 L Lymph % (Auto) 44.1 H [place] % (Auto) 7.4 Eos % (Auto) 2.1 Baso % (Auto) 0.6 Absolute Neuts (auto) 2.8 Absolute Lymphs (auto) 2.73 Nucleated RBC % 0 Sodium 140 Potassium 3.7 Chloride 114 H Carbon Dioxide 22.0 Anion Gap 4 L BUN 19 H Creatinine 1.01 Estim Creat Clear Calc 41.58 Est GFR (MDRD) Af Amer 70 Est GFR (MDRD) Non-Af 58 L BUN/Creatinine Ratio 18.8 Glucose 143 H Calcium 8.5 Total Bilirubin 0.20 AST 28 ALT 32 Alkaline Phosphatase 103 Total Protein 7.6 Albumin 3.6 Globulin 4.0 Albumin/Globulin Ratio 0.9 Valproic Acid 38 L Radiography Diagnostic Testing: Clinical Impression(s) from Imaging Studies Brain CT 08/13/22 22:27 IMPRESSION: Negative Brain CT without contrast. Electronically Signed: Taco Pozo MD at 23:33 EDT , Discharge Plan Triage Chief Complaint: Seizure ED Provider: Tin Freeman Dx/Rx/DC Orders Instructions: ED Seizure, Recurrent (Adult) Prescriptions: No Action multivitamin Tablet 1 tab PO DAILY calcium citrate 200 mg (950 mg) tablet 200 mg PO BID aspirin [Adult Low Dose Aspirin] 81 mg tablet,delayed release (DR/EC) 81 mg PO DAILY (DME) lancets [BD Ultra Fine Lancets] 33 gauge misc See Rx Instructions .Route Rx Instructions: As directed carvedilol 12.5 mg tablet 12.5 mg PO BID Qty: 180 1RF Januvia 100 mg tablet 100 mg PO DAILY Qty: 90 1RF losartan 50 mg tablet 50 mg PO BID isosorbide mononitrate 30 mg tablet extended release 24 hr 30 mg PO DAILY clopidogrel 75 mg tablet 75 mg PO DAILY divalproex 250 mg tablet extended release 24 hr 500 mg PO DAILY Rx Instructions: Take with two tabs of divalproex ER 500mg for a total dose of 1250mg once daily divalproex [Depakote] 500 mg tablet,delayed release (DR/EC) 500 mg PO BID Qty: 60 0RF hydrocodone-acetaminophen [hydrocodone-acetaminophen] 5-325 mg tablet 1 tab PO Q6H PRN PRN (Reason: Pain) 3 Days Qty: 10 0RF (DME) blood-glucose meter [True Metrix Air Glucose Meter] Kit See Rx Instructions .ROUTE .MEDSUPPLY Qty: 1 0RF Rx Instructions: As directed (DME) disability placard See Rx Instructions .ROUTE .MEDSUPPLY Qty: 1 0RF Rx Instructions: As directed, Length of time: 5 years (DME) True Metrix Glucose Test Strip Strip See Rx Instructions .ROUTE .MEDSUPPLY Qty: 100 3RF Rx Instructions: check twice a day and as needed guaifenesin 400 mg tablet 400 mg PO TID PRN (Reason: congestion, cough) Qty: 30 0RF Prolia 60 mg/mL syringe 60 mg subcut [id number] Qty: 1 0RF atorvastatin 80 mg tablet 80 mg PO QHS Qty: 90 3RF hydroxychloroquine 200 mg tablet See Rx Instructions .ROUTE .COMPLEX Qty: 60 0RF Dose Instruction: TAKE 1 TABLET BY MOUTH TWICE DAILY WITH MEALS Rx Instructions: TAKE 1 TABLET BY MOUTH TWICE DAILY WITH MEALS Primary Care Provider: Kannan Garcia Referrals: Kannan Garcia MD [Primary Care Provider] - Disposition Disposition: Home, Self Care
[2022-08-13 22:43] LABS: Absolute Lymphocyte Count 2.73 X10^3/uL (0.83-4.51); Absolute Neutrophil Count 2.8 X10^3/uL (2.0-7.7); Basophil# 0.04 X10^3/uL; Basophil% 0.6 % (0-1); Eosinophil# 0.13 X10^3/uL; Eosinophils% 2.1 % (0-5); Hematocrit 40.5 % (37-47); Hemoglobin 12.8 g/dL (12.0-15.0); Lymphocyte # 2.73 X10^3/ul (0.83-4.51); Lymphocyte % 44.1 % (19-41); Mean Corp Hgb Conc 31.6 g/dL (32-36); Mean Corpuscular Hgb 31.4 pg (27.0-32.0); Mean Corpuscular Volume 99.3 fL (81-99); Mean Platelet Vol. 10.6 fl (6.2-12.0); Monocyte# 0.46 X10^3/uL; Monocyte% 7.4 % (0-10); NRBC Flagged by Analyzer 0 % (0-5); Neutrophil # 2.82 X10^3/uL (2.7-7.7); Neutrophil % 45.6 % (47-70); Platelet Count 207 K/mm3 (150-450); RBC Distribution Width CV 13.5 % (11.6-14.6); RBC Distribution Width SD 49.6 fl (35.1-43.9); Red Blood Count 4.08 M/mm3 (4.2-5.4); White Blood Count 6.2 K/mm3 (4.4-11.0)
[2022-08-13] MEDS: DiphenhydrAMINE 50 MG/ML Syringe 25 MG IV (22:51)
[2022-08-13] MEDS: proCHLORPERazine 10 MG/2 ML Vial IV (22:51)
[2022-08-13] MEDS: 0.9% Normal Saline 1,000 ML 1000 ML IV (22:51)
[2022-08-13 23:06] LABS: ALB/GLOB Ratio 0.9 RATIO (0.9-2.4); AST(SGOT) 28 U/L (15-37); Alanine Aminotransfer ALT/SGPT 32 U/L (13-56); Albumin, Serum 3.6 g/dL (3.2-5.0); Alkaline Phosphatase 103 U/L (45-117); Anion Gap 4 (5-15); BUN 19 mg/dL (7-18); BUN/Creat Ratio 18.8 RATIO (10-20); Calcium,Total 8.5 mg/dL (8.5-10.1); Chloride 114 mmol/L (98-107); Creatinine, Serum 1.01 mg/dL (0.55-1.02); EST Glomerular Filtration Rate 58 mL/min (>60); Est Glom Filt Rate - Afr Amer 70 mL/min (>60); Estimated Creatinine Clearance 41.58 ml/min; Glucose 143 mg/dL (74-106); Potassium 3.7 mmol/L (3.5-5.1); Protein, Total 7.6 g/dL (6.4-8.2); Sodium Level 140 mmol/L (136-145)
[2022-08-13 23:16] LABS: Valproic Acid (Depakene) Level 38 ug/mL (50-100)
[2022-08-14] VITALS: BP 126/63; PULSE 89; RESP 17; O2SAT 99
[2022-08-14 01:11] VITALS: BP 163/81; PULSE 87; RESP 17; O2SAT 100
[2022-08-14] MEDS: Divalproex Sodium 250 MG Tablet PO (01:15)
== END 2022-08-14 05:20 | disposition home or self-care (01) ==
PROVIDERS: Emergency Provider Student in an Organized Health Care Education/Training Program; PCP Internal Medicine; Visit Provider Student in an Organized Health Care Education/Training Program
DX: R56.9 Unspecified convulsions (principal); I11.0 Hypertensive heart disease with heart failure; I50.32 Chronic diastolic (congestive) heart failure; E11.9 Type 2 diabetes mellitus without complications; E78.5 Hyperlipidemia, unspecified; R51.9 Headache, unspecified; I25.10 Atherosclerotic heart disease of native coronary artery without angina pectoris; E86.0 Dehydration
CPT/HCPCS: 70450; 80053; 80164; 85025; 93005; 96361; 96374; 96375; 99285; J7030; A4216

== ENCOUNTER → 2022-10-01 | Outpatient (CLI) | payer MEDICARE, SELFPAY ==
[2020-12-31 12:33] VITALS: BMI 32.7
[2022-10-01 13:23] LABS: Anion Gap 6 (5-15); BUN 21 mg/dL (7-18); BUN/Creat Ratio 26.3 RATIO (10-20); Calcium,Total 8.6 mg/dL (8.5-10.1); Chloride 113 mmol/L (98-107); EST Glomerular Filtration Rate 76 mL/min (>60); Est Glom Filt Rate - Afr Amer 92 mL/min (>60); Glucose 114 mg/dL (74-106); Potassium 3.8 mmol/L (3.5-5.1); Sodium Level 144 mmol/L (136-145)
[2022-10-01 13:36] LABS: Valproic Acid (Depakene) Level 36 ug/mL (50-100)
== END | disposition home or self-care (01) ==
LOC: BIMLAB 10:28
PROVIDERS: PCP Internal Medicine; Visit Provider Internal Medicine
DX: E11.69 Type 2 diabetes mellitus with other specified complication (principal); R56.9 Unspecified convulsions
CPT/HCPCS: 36415; 80048; 80164; 83036

== ENCOUNTER → 2022-10-03 | Outpatient (CLI) | payer MEDICARE, SELFPAY ==
[2020-12-31 12:33] VITALS: BMI 32.7
--- NOTE | 2022-10-03 11:31 | RAD_ITS ---
INDICATION: Right hip and groin pain for 2 weeks, no injury EXAMINATION/TECHNIQUE: X-RAY - XR Hip Unilateral with Pelvis when performed; 2-3 Views COMPARISON: None. FINDINGS: PELVIC BONES: No displaced fracture, destructive or sclerotic lesions. Note that overlapping bowel shadows may however obscure fine detail. Sacroiliac joints are unremarkable. No widening of the pubic symphysis. HIPS: The articular structures are unremarkable. No acute fracture. SOFT TISSUES: No soft tissue swelling or gas. RAD/HIP, UNI W/ Pelvis 2-3 Views IMPRESSION: No acute bony injury or significant arthropathy of the right hip. Electronically Signed: Francisco Esparza MD at 16:23 EDT ,
== END | disposition home or self-care (01) ==
LOC: MTRAD 11:31
PROVIDERS: PCP Internal Medicine; Referring Provider Internal Medicine; Visit Provider Internal Medicine
DX: R10.31 Right lower quadrant pain (principal); M25.551 Pain in right hip; R10.2 Pelvic and perineal pain
CPT/HCPCS: 73502

== ENCOUNTER → 2022-12-16 | Outpatient (CLI) | payer MEDICARE, SELFPAY ==
[2020-12-31 12:33] VITALS: BMI 32.7
--- NOTE | 2022-12-16 14:13 | CT_ITS ---
STUDY: CT ABDOMEN WITHOUT CONTRAST REASON FOR EXAM: Female, 72 years old. Epigastric abdominal pain RADIATION DOSAGE (If Supplied By Facility): CTDIvol = ( 13.91 ) mGy, DLP = ( 400.09 ) mGycm TECHNIQUE: Transaxial images were obtained without intravenous contrast, and with oral contrast. Sagittal and coronal images were reconstructed. Individualized dose optimization techniques were used for this CT. COMPARISON: Comparison is made with prior study of June 06, 2022. FINDINGS: Minimal linear scarring at the lung bases. Coronary artery calcification. Normal liver. Normal gallbladder and extrahepatic biliary system. Normal spleen. Normal pancreas. Normal bilateral adrenal glands. Normal right kidney. Normal left kidney. Normal visualized stomach. Normal small intestine. Normal colon. The appendix is visualized and appears normal. There is diffuse atherosclerotic calcification of the abdominal aorta and its major visceral branches, without a demonstrated aneurysm. Normal inferior vena cava. Normal retroperitoneum. Status post hysterectomy. Normal abdominal wall. Mild loss of height of the superior endplate of the L5 vertebrae. CT/Abdomen without IV Contrast IMPRESSION: Stable examination. No acute abnormality is seen. Mild degree of loss of height of the superior endplate of the L5 vertebrae. Electronically Signed: Tor Artis MD at 15:07 EDT ,
== END | disposition home or self-care (01) ==
LOC: CT 14:13
PROVIDERS: PCP Internal Medicine; Referring Provider Internal Medicine; Visit Provider Internal Medicine
DX: R10.13 Epigastric pain (principal); G89.29 Other chronic pain
CPT/HCPCS: 74150

== ENCOUNTER 2022-12-18 05:22 | Observation (INO) | payer MEDICARE, SELFPAY ==
[2020-12-31 12:33] VITALS: BMI 32.7
[2022-12-18] VITALS (15 sets, daily range): BP systolic 118–160; BP diastolic 68–83; PULSE 74–94; RESP 14–19; TEMP 35.9–36.7; O2SAT 95–100; BMI 22.4; BMI 31.4
--- NOTE | 2022-12-18 05:36 | RAD_ITS ---
EXAM: XR CHEST, 1 VIEW CLINICAL INDICATION: chest pain TECHNIQUE: Frontal view of the chest. COMPARISON: June 06, 2022. March 14, 2022. FINDINGS: LUNGS AND PLEURAL SPACES: Unremarkable. No consolidation or edema. No pneumothorax. No effusion. HEART: Unremarkable. Cardiac silhouette not enlarged. MEDIASTINUM: Central airways and mediastinal contour are unremarkable. BONES/JOINTS: Unremarkable. SOFT TISSUES: Unremarkable. RAD/Chest 1 View (Portable) IMPRESSION: No radiographic evidence of acute cardiopulmonary disease. Electronically Signed: Flor Flynn MD at 6:39 EDT ,
--- NOTE | 2022-12-18 05:37 | EDS_ITS ---
HPI History of Present Illness Chief Complaint: Chest Pain Detail of Chief Complaint: Chest pain Informant: patient Narrative Narrative: Patient presents with chest pain that started last evening. Patient states she did not pay any attention to it and thought it would go away. She tried to go to bed but then woke up around 1 AM and still had some of the discomfort. Patient woke up around 5:00 in had numbness and tingling in her left hand. She felt short of breath and nauseated. She describes a pressure in her chest. Patient had similar discomfort in the past when she required stents. She denies recent travel or surgery. No history of PE or DVT. [facility] Medical History (Updated 12/18/22 @ 06:[address] Turner Armendariz, ) Abdominal pain Acute back pain Anemia Arthritis Atherosclerotic heart disease of [place] coronary artery without angina pectoris Cardiology follow-up encounter Cervical radiculopathy Chronic diastolic CHF (congestive heart failure) Colon cancer screening Compression fracture of lumbar spine, non-traumatic Congestive heart failure (CHF) Conversion disorder Cough CPAP (continuous positive airway pressure) dependence Diabetes Diabetes mellitus type 2 in nonobese Diabetes type 2, controlled Dysuria Dysuria Essential (primary) hypertension Foreign body in stomach GERD (gastroesophageal reflux disease) Health care maintenance Hives Hyperglycemia due to type 2 diabetes mellitus Hyperlipidemia Left ankle pain Left shoulder pain Memory changes Non-smoker Non-toxic goiter Obesity Obstructive sleep apnea Osteoarthritis Osteoporosis Personal history of colonic polyps Rheumatoid arthritis RIGHT FOOT HEEL SPUR Right groin pain Right hip pain Right shoulder pain Routine health maintenance Seasonal allergies Seizure disorder Shortness of breath on exertion Sleep apnea Therapeutic drug monitoring Type 2 diabetes mellitus Urinary frequency Urinary frequency Wears glasses Home Medications multivitamin 1 tab PO DAILY vitamin 05/20/19 [History Last Taken 12/31/21] blood-glucose meter (True Metrix Air Glucose Meter kit) #1 ea 02/03/20 [Rx Last Taken Unknown] calcium citrate 200 mg (950 mg) tablet 200 mg PO BID supplement 05/21/20 [History Last Taken 12/31/21] disability placard #1 ea 06/27/20 [Rx Last Taken Unknown] aspirin 81 mg tablet,delayed release (Adult Low Dose Aspirin) 81 mg PO DAILY heart 08/13/20 [History Last Taken 12/31/21] blood sugar diagnostic (True Metrix Glucose Test Strip) #100 ea 07/17/21 [Rx Last Taken Unknown] lancets 33 gauge (BD Ultra Fine Lancets) 04/02/22 [History Last Taken Unknown] atorvastatin 80 mg tablet 80 mg PO QHS cholesterol #90 tabs 06/11/22 [Rx Last Taken Unknown] clopidogrel 75 mg tablet See Rx Instructions .Route .COMPLEX #90 TABLETS 08/20/22 [Rx Last Taken Unknown] isosorbide mononitrate 30 mg tablet,extended release 24 hr See Rx Instructions .Route .COMPLEX #90 TABLETS 08/20/22 [Rx Last Taken Unknown] losartan 50 mg tablet See Rx Instructions .Route .COMPLEX #180 TABLETS 08/20/22 [Rx Last Taken Unknown] hydroxychloroquine 200 mg tablet See Rx Instructions .Route .COMPLEX #90 tabs 08/25/22 [Rx Last Taken Unknown] divalproex 250 mg tablet,delayed release 250 mg PO DAILY #90 tabs 10/02/22 [Rx Last Taken Unknown] divalproex 500 mg tablet,delayed release (Depakote) 1,000 mg PO .COMPLEX 10/03/22 [History Last Taken Unknown] carvedilol 12.5 mg tablet See Rx Instructions .Route .COMPLEX #180 tabs 12/08/22 [Rx Last Taken Unknown] sitagliptin phosphate 100 mg tablet (Januvia) See Rx Instructions .Route .COMPLEX #90 tabs 12/08/22 [Rx Last Taken Unknown] denosumab 60 mg/mL subcutaneous syringe (Prolia) 60 mg subcut [id number] #1 mL 12/11/22 [Rx Last Taken Unknown] pantoprazole 40 mg tablet,delayed release 40 mg PO DAILY #90 tabs 12/11/22 [Rx Last Taken Unknown] Allergy/AdvReac Type Severity Reaction Status Date / Time prednisone AdvReac Severe Hives Verified 12/18/22 05:23 Family History Grandmother Alcoholism Cancer Arthritis Mother Alcoholism Diabetes blood clots Hypertension Grandfather Heart disease Sister Thyroid disorder Other Breast cancer Cervical cancer Colon cancer Surgical History H/O: hysterectomy History of cardiac catheterization History of carpal tunnel surgery History of section History of coronary artery stent placement (03/22/18) History of left heart catheterization (09/20/18) Social History Smoking Status: Never smoker second hand exposure: No alcohol intake: current alcohol intake frequency: holidays/special occasions only substance use type: does not use what type of physical activity do you participate in: none ROS ROS ED Review of Systems ROS Unobtainable: other Constitutional Constitutional ED: Reports lethargy; Denies chills, fever(s), sweats or weight loss Eyes Eyes: Denies blurry vision, change in vision or diplopia ENT ENT ED: Denies rhinorrhea or sore throat Cardiovascular Cardiovascular: Reports chest pain; Denies orthopnea or racing heartbeat Respiratory/Chest Respiratory/Chest: Reports dyspnea; Denies cough, dyspnea on exertion, orthopnea or sputum Gastrointestinal Gastrointestinal: Denies abdominal pain, diarrhea, nausea or vomiting Genitourinary Genitourinary ED: Denies dysuria, hematuria or urinary frequency Musculoskeletal Musculoskeletal: Denies arthralgias, back pain, myalgias or neck pain Integumentary Denies abscess, Abrasions or rash Neurologic Neurologic: Denies headache(s) or weakness Psychiatric Psychiatric: Denies anxiety, depression or suicidal thoughts Endocrine Endocrinology: Denies polydipsia, polyphagia or polyuria Hematologic/Lymphatic Hematologic/Lymphatic: Denies easy bleeding, easy bruising or lymphadenopathy Allergic/Immunologic Allergic/Immunologic ED: Denies mouth swelling, tongue swelling or urticaria EXAM Physical Exam Const Vital Signs: 12/18/22 05:23 12/18/22 05:56 12/18/22 06:00 Temperature 96.6 F L Temperature Source Temporal Pulse Rate 94 85 90 Respiratory Rate 16 Blood Pressure 159/69 H 141/68 H 137/78 H Blood Pressure Mean 99 Pulse Ox 98 Oxygen Delivery Method Room Air 12/18/22 06:05 12/18/22 06:09 12/18/22 06:43 Temperature Temperature Source Pulse Rate 92 78 Respiratory Rate 14 Blood Pressure 129/71 H 118/69 Blood Pressure Mean 85 Pulse Ox 97 Oxygen Delivery Method Room Air Room Air Positive well nourished and well developed General Appearance ED: well developed and NAD HEENT Reports TM's clear and moist mucous membranes normocephalic and atraumatic; Negative for trauma or tenderness Tympanic Membrane ED: Yes TM's clear Eyes PERRL and EOMs intact bilaterally General Eye ED: Negative for pale conjunctiva or scleral icterus Neck no lymphadenopathy, supple and no JVD General: Negative for tenderness Chest Wall inspection of chest normal and palpation of chest normal Chest: Negative for tenderness Resp normal respiratory effort and clear to auscultation bilaterally Effort and Inspection: Negative for respiratory distress or pain with movement Auscultation: Negative for rhonchi, wheezes or diminished lung sounds Cardio regular rate, regular rhythm, S1 normal heart sound, S2 normal heart sound and no murmurs Peripheral Pulses: pulses 2+ throughout GI normal to inspection, nondistended, normoactive bowel sounds, soft to palpation, non-tender, non-distended and no masses Back/Spine no CVA tenderness and no thoracic nor lumbar tenderness Extremity normal to inspection General Extremety ED: Negative for edema General Extremity: Negative for edema Neuro oriented x3, CN's II-XII intact bilaterally, no sensory deficits noted and gait normal Sensorium / Orientation: awake, alert, oriented to person, oriented to place and oriented to time Motor Exam: strength 5/5 throughout and strength abnormal Psych mental status grossly normal Skin no rashes or lesions noted and no wounds MDM MDM MDM Narrative Medical decision making narrative: Patient presents with chest pain concerning for acute coronary syndrome. She has known history of coronary artery disease. Patient placed on a cardiac monitor technician. EKG obtained on arrival shows sinus rhythm with a ventricular rate of 92 bpm with no acute ST segment changes. CBC with differential was unremarkable. Chemistries and troponin are pending as I am told the chemistry machine is down and they are working to correct and fix the problem. While in the department she did receive aspirin and sublingual nitro which gave her minimal improvement in her pain. She was ordered fentanyl 25 mcg IV. Care of patient turned over to morning physician awaiting chemistries and troponin result. Patient is high risk and suspect will have a high heart score therefore will likely require admission for further evaluation of her chest pain. Lab Data Labs: Laboratory Results - last 24 hr 12/18/22 05:50 WBC 4.9 RBC 3.32 L Hgb 10.8 L Hct 32.9 L MCV 99.1 H MCH 32.5 H MCHC 32.8 RDW Std Deviation 50.8 H RDW Coeff of [place] 13.9 Plt Count 183 MPV 10.7 Immature Gran % (Auto) 0.200 Neut % (Auto) 43.9 L Lymph % (Auto) 45.0 H [place] % (Auto) 8.1 Eos % (Auto) 2.4 Baso % (Auto) 0.4 Absolute Neuts (auto) 2.2 Absolute Lymphs (auto) 2.22 Nucleated RBC % 0 D-Dimer Quant (PE/DVT) 0.31 Radiography Diagnostic Testing: Clinical Impression(s) from Imaging Studies Chest X-Ray 12/18/22 05:36 IMPRESSION: No radiographic evidence of acute cardiopulmonary disease. Electronically Signed: Flor Flynn MD at 6:39 EDT , 1 view chest x-ray obtained interpreted by myself as no evidence of acute infiltrate or pneumothorax or acute process. Official report from radiology pending. EKG Initial EKG: Attestation: I personally reviewed and interpreted this EKG as follows: Comments: Sinus rhythm with a rate of 92 bpm with no acute ST segment changes noted. Discharge Plan Triage Chief Complaint: Chest Pain ED Provider: Turner Armendariz Dx/Rx/DC Orders Clinical Impression: History of hypertension, History of coronary artery disease, Chest pain Prescriptions: No Action multivitamin Tablet 1 tab PO DAILY calcium citrate 200 mg (950 mg) tablet 200 mg PO BID aspirin [Adult Low Dose Aspirin] 81 mg tablet,delayed release (DR/EC) 81 mg PO DAILY (DME) lancets [BD Ultra Fine Lancets] 33 gauge misc See Rx Instructions .Route Rx Instructions: As directed divalproex [Depakote] 500 mg tablet,delayed release (DR/EC) 1,000 mg PO .COMPLEX Rx Instructions: Take 2 tablets orally every evening (along with 250 mg tablet for a total evening dose of 1250 mg) and 2 tablet every morning. divalproex 250 mg tablet,delayed release (DR/EC) 250 mg PO DAILY Qty: 90 1RF Rx Instructions: Take with 1000 mg Divalproex for a total evening dose of 1250 mg daily. pantoprazole 40 mg tablet,delayed release (DR/EC) 40 mg PO DAILY Qty: 90 0RF Rx Instructions: Take 30 minutes before breakfast (DME) blood-glucose meter [True Metrix Air Glucose Meter] Kit See Rx Instructions .ROUTE .MEDSUPPLY Qty: 1 0RF Rx Instructions: As directed (DME) disability placard See Rx Instructions .ROUTE .MEDSUPPLY Qty: 1 0RF Rx Instructions: As directed, Length of time: 5 years (DME) True Metrix Glucose Test Strip Strip See Rx Instructions .ROUTE .MEDSUPPLY Qty: 100 3RF Rx Instructions: check twice a day and as needed atorvastatin 80 mg tablet 80 mg PO QHS Qty: 90 3RF isosorbide mononitrate 30 mg tablet extended release 24 hr See Rx Instructions .ROUTE .COMPLEX Qty: 90 3RF Dose Instruction: TAKE 1 TABLET BY MOUTH EVERY DAY Rx Instructions: TAKE 1 TABLET BY MOUTH EVERY DAY losartan 50 mg tablet See Rx Instructions .ROUTE .COMPLEX Qty: 180 3RF Dose Instruction: TAKE 1 TABLET BY MOUTH TWICE DAILY Rx Instructions: TAKE 1 TABLET BY MOUTH TWICE DAILY clopidogrel 75 mg tablet See Rx Instructions .ROUTE .COMPLEX Qty: 90 3RF Dose Instruction: TAKE 1 TABLET BY MOUTH EVERY DAY Rx Instructions: TAKE 1 TABLET BY MOUTH EVERY DAY hydroxychloroquine 200 mg tablet See Rx Instructions .ROUTE .COMPLEX Qty: 90 3RF Dose Instruction: TAKE 1 TABLET BY MOUTH TWICE DAILY WITH MEALS Rx Instructions: TAKE 1 TABLET BY MOUTH TWICE DAILY WITH MEALS carvedilol 12.5 mg tablet See Rx Instructions .ROUTE .COMPLEX Qty: 180 1RF Dose Instruction: TAKE 1 TABLET BY MOUTH TWICE DAILY Rx Instructions: TAKE 1 TABLET BY MOUTH TWICE DAILY Januvia 100 mg tablet See Rx Instructions .ROUTE .COMPLEX Qty: 90 1RF Dose Instruction: TAKE 1 TABLET BY MOUTH DAILY Rx Instructions: TAKE 1 TABLET BY MOUTH DAILY Prolia 60 mg/mL syringe 60 mg subcut [id number] Qty: 1 2RF Primary Care Provider: Kannan Garcia Referrals: Kannan Garcia MD [Primary Care Provider] -
--- NOTE | 2022-12-18 05:45 | EKG12_ITS ---
Test Reason : cp Blood Pressure : / mmHG Vent. Rate : 092 BPM Atrial Rate : 092 BPM P-R Int : 140 ms QRS Dur : 080 ms QT Int : 372 ms P-R-T Axes : 061 006 019 degrees QTc Int : 460 ms Poor data quality, interpretation may be adversely affected Normal sinus rhythm Normal ECG Confirmed by KEILY CROWELL ([id number]), newspaper copy editor ADIA ARDON ([id number]) on 12/23/2022 8:31:47 AM Referred By: Gonzalo Confirmed By:KEILY CROWELL
[2022-12-18] MEDS: 0.9% Normal Saline 1,000 ML 150 ML IV (05:56)
[2022-12-18] MEDS: Nitroglycerin SL (ED/IMG/CATH) 0.4 MG TABLET SL ×3 (05:56→06:05)
[2022-12-18] MEDS: Ondansetron 4 MG/2 ML Vial IV (05:57)
[2022-12-18] MEDS: Aspirin 81 MG TAB.CHEW 324 MG PO (05:58)
[2022-12-18 06:07] LABS: Absolute Lymphocyte Count 2.22 X10^3/uL (0.83-4.51); Absolute Neutrophil Count 2.2 X10^3/uL (2.0-7.7); Basophil# 0.02 X10^3/uL; Basophil% 0.4 % (0-1); Eosinophil# 0.12 X10^3/uL; Eosinophils% 2.4 % (0-5); Hematocrit 32.9 % (37-47); Hemoglobin 10.8 g/dL (12.0-15.0); Lymphocyte # 2.22 X10^3/ul (0.83-4.51); Mean Corp Hgb Conc 32.8 g/dL (32-36); Mean Corpuscular Hgb 32.5 pg (27.0-32.0); Mean Corpuscular Volume 99.1 fL (81-99); Mean Platelet Vol. 10.7 fl (6.2-12.0); Monocyte% 8.1 % (0-10); NRBC Flagged by Analyzer 0 % (0-5); Neutrophil # 2.16 X10^3/uL (2.7-7.7); Neutrophil % 43.9 % (47-70); Platelet Count 183 K/mm3 (150-450); RBC Distribution Width CV 13.9 % (11.6-14.6); RBC Distribution Width SD 50.8 fl (35.1-43.9); Red Blood Count 3.32 M/mm3 (4.2-5.4); White Blood Count 4.9 K/mm3 (4.4-11.0)
[2022-12-18 06:21] LABS: D-Dimer Quantitative (DVT/PE) 0.31 FEU/ug/m (0.27-0.49)
[2022-12-18] MEDS: fentaNYL 100 MCG/2 ML Ampul 25 MCG IV (06:43)
[2022-12-18 07:30] LABS: Anion Gap 4 (5-15); BUN 25 mg/dL (7-18); BUN/Creat Ratio 27.6 RATIO (10-20); Calcium,Total 8.5 mg/dL (8.5-10.1); Chloride 108 mmol/L (98-107); EST Glomerular Filtration Rate 65 mL/min (>60); Est Glom Filt Rate - Afr Amer 79 mL/min (>60); Estimated Creatinine Clearance 71.34 ml/min; Glucose 144 mg/dL (74-106); Sodium Level 141 mmol/L (136-145); Troponin-I HS (w/2H Reflex) 6 pg/mL (3.0-54.0)
[2022-12-18 08:02] LABS: Reflex Troponin-HS? (from REC) Y
[2022-12-18] MEDS: Nitroglycerin Oint 1 INCH PACKET TD (08:04)
[2022-12-18] MEDS: Mag Hydrox/Al Hydrox/Simeth 30 ML UDC PO (08:30)
--- NOTE | 2022-12-18 09:13 | NURSING ---
DR JADE FOR DR SORIA
--- NOTE | 2022-12-18 09:17 | NURSING ---
PCU OBS MOSTELLER CHEST PAIN HX CAD
[2022-12-18] MEDS: Morphine 4 MG/ML Syringe IV (09:23)
[2022-12-18 09:48] LABS: Prothrombin Time (Protime)PT. 12.8 SECONDS (11.7-14.9)
[2022-12-18 09:49] LABS: Partial Thromboplast Time 27.4 Seconds (24.1-36.2)
[2022-12-18] MEDS: HEPARIN/D5w 25,000 UNITS 25,000 UNITS/250 ML IV.SOLN. 9 UNITS CONT INF (09:49)
[2022-12-18] MEDS: Heparin Injection (Vial) 5,000 UNIT/ML VIAL 4000 UNIT IV (09:49)
[2022-12-18 09:59] LABS: Troponin-I HS 5 pg/mL (3.0-54.0)
--- NOTE | 2022-12-18 11:43 | EKG12_ITS ---
Test Reason : Blood Pressure : / mmHG Vent. Rate : 079 BPM Atrial Rate : 079 BPM P-R Int : 150 ms QRS Dur : 082 ms QT Int : 408 ms P-R-T Axes : 058 006 017 degrees QTc Int : 467 ms Normal sinus rhythm Normal ECG Confirmed by KEILY CROWELL ([id number]), editorial intern ADIA ARDON ([id number]) on 12/23/2022 9:36:38 AM Referred By: YASMANY Confirmed By:KEILY CROWELL
[2022-12-18] MEDS: 0.9% Saline Lock 10 ML Syringe IV (12:11)
[2022-12-18] MEDS: Acetaminophen 325 MG Tablet 650 MG PO (12:26)
[2022-12-18 12:27] LABS: Troponin-I HS 5 pg/mL (3.0-54.0)
[2022-12-18] MEDS: Divalproex Sodium 250 MG Tablet 1000 MG PO ×2 (12:27→21:39)
--- NOTE | 2022-12-18 13:32 | CHAPLAIN ---
Type of Pastoral Visit _x__ Initial Visit ___ Follow-up Visit ___ On-call Visit ___ General Patient Visit ___ Spiritual Assessment ___ Family Conference ___ Bereavement ___ Rapid Response ___ Code Blue ___ Other (describe below) Pastoral Care Referral From _x__ Patient ___ Family ___ Nurse ___ Physician ___ Planer Hand ___ Technology Specialist ___ Other (describe below) Sacrament/Intervention _x__ Active listening ___ Anointing ___ Advent ___ Bereavement ___ Communion ___ Wendi exploration ___ ___ Life review ___ Prayer ___ Reconciliation ___ Sacrament of Sick ___ Supportive presence ___ Wedding ___ Other (describe below) Pastoral Comments patient has family members in the room; pt says that she is just getting some things checked out, that she is blessed to have family support, and does not seek other interventions at this time; offer of support as desired for the future
--- NOTE | 2022-12-18 16:27 | HP.PCM.HOS_ITS ---
HPI - General General Date of Admission: 12/18/22 Date of Service: 12/18/22 Chief Complaint: Chest pain HPI Narrative Nery Clark is a 72-year-old female with history significant for CAD s/p stenting on Plavix (follows w/ Dr. Johnson), hypertension, seizures, [id number] type 2 diabetes and GERD who presented to the [facility] ED on 12/18 with chest pain. Patient seen at bedside. She states that the chest pain started yesterday evening. States she tried to go to bed, but then woke up around 1 AM and still had some discomfort. She again woke up at 5 AM with numbness and tingling in her left hand, along with shortness of breath and nausea. She had a pressure in the left side of her chest that would not go away. States she had similar discomfort in the past when she required stents. She then came to the hospital for further evaluation. Labs on admission were fairly benign. Troponin was negative. EKG reportedly showed no acute changes, however I was unable to view this. Chest x-ray was nonacute. [facility] Medical History Abdominal pain Acute back pain Anemia Arthritis Atherosclerotic heart disease of [place] coronary artery without angina pectoris Cardiology follow-up encounter Cervical radiculopathy Chronic diastolic CHF (congestive heart failure) Colon cancer screening Compression fracture of lumbar spine, non-traumatic Congestive heart failure (CHF) Conversion disorder Cough CPAP (continuous positive airway pressure) dependence Diabetes Diabetes mellitus type 2 in nonobese Diabetes type 2, controlled Dysuria Dysuria Essential (primary) hypertension Foreign body in stomach GERD (gastroesophageal reflux disease) Health care maintenance Hives Hyperglycemia due to type 2 diabetes mellitus Hyperlipidemia Left ankle pain Left shoulder pain Memory changes Non-smoker Non-toxic goiter Obesity Obstructive sleep apnea Osteoarthritis Osteoporosis Personal history of colonic polyps Rheumatoid arthritis RIGHT FOOT HEEL SPUR Right groin pain Right hip pain Right shoulder pain Routine health maintenance Seasonal allergies Seizure disorder Shortness of breath on exertion Sleep apnea Therapeutic drug monitoring Type 2 diabetes mellitus Urinary frequency Urinary frequency Wears glasses Home Medications multivitamin 1 tab PO DAILY vitamin 05/20/19 [History Last Taken 12/31/21] blood-glucose meter (True Metrix Air Glucose Meter kit) #1 ea 02/03/20 [Rx Last Taken Unknown] calcium citrate 200 mg (950 mg) tablet 200 mg PO BID supplement 05/21/20 [History Last Taken 12/31/21] disability placard #1 ea 06/27/20 [Rx Last Taken Unknown] aspirin 81 mg tablet,delayed release (Adult Low Dose Aspirin) 81 mg PO DAILY heart 08/13/20 [History Last Taken 12/31/21] blood sugar diagnostic (True Metrix Glucose Test Strip) #100 ea 07/17/21 [Rx Last Taken Unknown] lancets 33 gauge (BD Ultra Fine Lancets) 04/02/22 [History Last Taken Unknown] atorvastatin 80 mg tablet 80 mg PO QHS cholesterol #90 tabs 06/11/22 [Rx Last Taken Unknown] clopidogrel 75 mg tablet See Rx Instructions .Route .COMPLEX #90 TABLETS 08/20/22 [Rx Last Taken Unknown] isosorbide mononitrate 30 mg tablet,extended release 24 hr See Rx Instructions .Route .COMPLEX #90 TABLETS 08/20/22 [Rx Last Taken Unknown] losartan 50 mg tablet See Rx Instructions .Route .COMPLEX #180 TABLETS 08/20/22 [Rx Last Taken Unknown] hydroxychloroquine 200 mg tablet See Rx Instructions .Route .COMPLEX #90 tabs 08/25/22 [Rx Last Taken Unknown] divalproex 250 mg tablet,delayed release 250 mg PO DAILY #90 tabs 10/02/22 [Rx Last Taken Unknown] divalproex 500 mg tablet,delayed release (Depakote) 1,000 mg PO .COMPLEX 10/03/22 [History Last Taken Unknown] carvedilol 12.5 mg tablet See Rx Instructions .Route .COMPLEX #180 tabs 12/08/22 [Rx Last Taken Unknown] sitagliptin phosphate 100 mg tablet (Januvia) See Rx Instructions .Route .COMPLEX #90 tabs 12/08/22 [Rx Last Taken Unknown] denosumab 60 mg/mL subcutaneous syringe (Prolia) 60 mg subcut [id number] #1 mL 12/11/22 [Rx Last Taken Unknown] pantoprazole 40 mg tablet,delayed release 40 mg PO DAILY #90 tabs 12/11/22 [Rx Last Taken Unknown] Allergy/AdvReac Type Severity Reaction Status Date / Time prednisone AdvReac Severe Hives Verified 12/18/22 05:23 Family History Grandmother Alcoholism Cancer Arthritis Mother Alcoholism Diabetes blood clots Hypertension Grandfather Heart disease Sister Thyroid disorder Other Breast cancer Cervical cancer Colon cancer Surgical History H/O: hysterectomy History of cardiac catheterization History of carpal tunnel surgery History of section History of coronary artery stent placement (03/22/18) History of left heart catheterization (09/20/18) Social History Smoking Status: Never smoker second hand exposure: No alcohol intake: current alcohol intake frequency: holidays/special occasions only substance use type: does not use what type of physical activity do you participate in: none ROS Constitutional Constitutional: Denies chills, fatigue or fever(s) Eyes Eyes: Denies change in vision Cardiovascular Cardiovascular: Reports chest pain; Denies dyspnea on exertion, edema, lightheadedness or palpitations Respiratory/Chest Respiratory/Chest: Denies cough Gastrointestinal Gastrointestinal: Reports dyspepsia and nausea; Denies abdominal pain, constipation, diarrhea or vomiting Musculoskeletal Musculoskeletal: Denies arthralgias or myalgias Vital Signs Vital Signs Vital Signs: 12/18/22 05:23 12/18/22 05:56 12/18/22 06:00 Temperature 96.6 F L Temperature Source Temporal Pulse Rate 94 85 90 Pulse Strength Respiratory Rate 16 Respiratory Effort Respiratory Depth Respiratory Pattern Blood Pressure 159/69 H 141/68 H 137/78 H Blood Pressure Mean 99 Blood Pressure Source Blood Pressure Position Blood Pressure Location Pulse Ox 98 Oxygen Delivery Method Room Air 12/18/22 06:05 12/18/22 06:09 12/18/22 06:43 Temperature Temperature Source Pulse Rate 92 78 Pulse Strength Respiratory Rate 14 Respiratory Effort Respiratory Depth Respiratory Pattern Blood Pressure 129/71 H 118/69 Blood Pressure Mean 85 Blood Pressure Source Blood Pressure Position Blood Pressure Location Pulse Ox 97 Oxygen Delivery Method Room Air Room Air 12/18/22 08:04 12/18/22 07:00 12/18/22 08:00 Temperature Temperature Source Pulse Rate 83 Pulse Strength Respiratory Rate 18 16 Respiratory Effort Respiratory Depth Respiratory Pattern Blood Pressure 131/72 H Blood Pressure Mean Blood Pressure Source Blood Pressure Position Blood Pressure Location Pulse Ox Oxygen Delivery Method 12/18/22 09:00 12/18/22 10:00 12/18/22 09:15 Temperature 98.1 F Temperature Source Temporal Pulse Rate 74 Pulse Strength Respiratory Rate 18 18 18 Respiratory Effort Respiratory Depth Respiratory Pattern Blood Pressure 148/72 H Blood Pressure Mean 97 Blood Pressure Source Blood Pressure Position Blood Pressure Location Pulse Ox 95 Oxygen Delivery Method Room Air 12/18/22 10:30 12/18/22 10:55 12/18/22 10:30 Temperature 97.8 F Temperature Source Oral Pulse Rate 87 Pulse Strength Normal (2+) Respiratory Rate 18 Respiratory Effort Normal Non-Labored Respiratory Depth Normal Respiratory Pattern Normal Blood Pressure 160/83 H Blood Pressure Mean 108 Blood Pressure Source Monitor Blood Pressure Position Semi-Fowlers Blood Pressure Location Right Arm Pulse Ox 100 Oxygen Delivery Method Room Air Room Air 12/18/22 14:08 Temperature Temperature Source Pulse Rate Pulse Strength Respiratory Rate Respiratory Effort Respiratory Depth Respiratory Pattern Blood Pressure Blood Pressure Mean Blood Pressure Source Blood Pressure Position Blood Pressure Location Pulse Ox 96 Oxygen Delivery Method Room Air Weight Weight: 77.9 kg Body Mass Index (BMI) 31.4 Physical Exam Const alert and oriented x3 Constitutional Narrative: Pleasant elderly female, obese, sitting comfortably in bed, conversing normally, no acute distress. General Appearance: cooperative and comfortable HEENT normocephalic, head/scalp atraumatic, hearing grossly normal bilaterally, nasal mucous membranes and turbinates normal and moist oral mucous membranes Eyes PERRL, EOMs intact bilaterally and conjunctivae normal Neck full ROM, no lymphadenopathy and supple Lymph Lymphatic: no lymphadenopathy noted Chest inspection of chest normal Resp normal respiratory effort, normal air movement, no use of accessory muscles and clear to auscultation bilaterally Cardio regular rate, regular rhythm, no murmurs and peripheral pulses 2+ throughout GI normal to inspection, nondistended, normoactive bowel sounds, soft to palpation, non-tender and non-distended Back/Spine normal ROM Extremity normal to inspection and full ROM Extremity Narrative: Mild bilateral lower extremity nonpitting edema up to mid david noted. Skin no rashes or lesions noted Psych mental status grossly normal Results Lab / Micro Data 12/18/22 05:50 12/18/22 05:50 Labs: Laboratory Results - last 24 hr 12/18/22 05:50: WBC 4.9, RBC 3.32 L, Hgb 10.8 L, Hct 32.9 L, MCV 99.1 H, MCH 32.5 H, MCHC 32.8, RDW Std Deviation 50.8 H, RDW Coeff of [place] 13.9, Plt Count 183, MPV 10.7, Immature Gran % (Auto) 0.200, Neut % (Auto) 43.9 L, Lymph % (Auto) 45.0 H, [place] % (Auto) 8.1, Eos % (Auto) 2.4, Baso % (Auto) 0.4, Absolute Neuts (auto) 2.2, Absolute Lymphs (auto) 2.22, Nucleated RBC % 0, D-Dimer Quant (PE/DVT) 0.31, Sodium 141, Potassium 4.0, Chloride 108 H, Carbon Dioxide 29.0, Anion Gap 4 L, BUN 25 H, Creatinine 0.90, Estim Creat Clear Calc 71.34, Est GFR (MDRD) Af Amer 79, Est GFR (MDRD) Non-Af 65, BUN/Creatinine Ratio 27.6 H, Glucose 144 H, Calcium 8.5, Troponin I High Sens 6 12/18/22 09:30: PT 12.8, INR 1.0, APTT 27.4, Troponin I High Sens 5 12/18/22 11:50: Troponin I High Sens 5 Radiology Impression Chest X-Ray 12/18/22 05:36 IMPRESSION: No radiographic evidence of acute cardiopulmonary disease. Electronically Signed: Flor Flynn MD at 6:39 EDT , Assessment & Plan Assessment/Plan (1) Chest pain: PLAN: Plan Nery Clark is a 72-year-old female with history significant for CAD s/p stenting on Plavix (follows w/ Dr. Johnson), hypertension, seizures, [id number] type 2 diabetes and GERD who presented to the [facility] ED on 12/18 with chest pain. 1. Chest pain in setting of known history of CAD status post stenting on Plavix Unclear if this chest pain is cardiac in nature, but have high enough suspicion given her history and presenting symptoms to admit for further evaluation. Troponins negative, EKG reportedly normal. Vital stable. Physical exam unremarkable. ? Patient given 325 mg of aspirin in the ED and started on a heparin drip. Cardiology consulted and planning for left heart cath with possible intervention tomorrow morning. N.p.o. at midnight. Continue home Plavix. Continue home atorvastatin. 2. Hypertension ? Holding home carvedilol, isosorbide mononitrate and losartan at this time. We will plan to restart after left heart cath tomorrow as able. 3. Seizure disorder ? Continue home divalproex. 4. Qae-houdifw-ntcnffzha type 2 diabetes ? Home medication of Sitagliptin. Will monitor blood sugars here, can add on sliding scale insulin as needed. DVT prophylaxis: Heparin drip CODE STATUS: Full code, verified Expected disposition: Home, tomorrow Total clinical time spent by myself addressing the patient's medical issues, reviewing all the data, and collaborating with patient's care team: 55 minutes. Charges/Coding Visit Charges Inpatient E&M: 85969 Init Hosp L2
[2022-12-18] MEDS: Hydroxychloroquine 200 MG Tablet PO (17:27)
[2022-12-18] MEDS: Divalproex Sodium 250 MG Tablet PO (21:39)
[2022-12-18] MEDS: Atorvastatin Calcium 80 MG Tablet PO (21:40)
[2022-12-18] MEDS: Calcium Carbonate 500 MG Tablet PO (21:52)
[2022-12-19] VITALS (9 sets, daily range): BP systolic 121–145; BP diastolic 69–94; PULSE 78–99; RESP 16–19; TEMP 36.2–36.6; O2SAT 98–100
[2022-12-19] MEDS: Aspirin E.C. 81 MG Tablet PO (06:23)
[2022-12-19] MEDS: Clopidogrel Bisulfate 75 MG Tablet PO (06:23)
[2022-12-19 07:09] LABS: Bedside Glucose 101 mg/dL (74-106)
--- NOTE | 2022-12-19 07:47 | ECHOD_ITS ---
Reason For Study: CHEST PAIN Procedure This was a 2D Doppler, Color Flow transthoracic echocardiogram. The study was technically difficult. Due to body habitus. Contrast injection was performed. Exam performed portable in patient room. Left Ventricle Normal LV size. Left ventricular systolic function is normal. The estimated ejection fraction is 65 %. Stage 1 diastolic dysfunction. No regional wall motion abnormalities noted. Right Ventricle Normal RV size. Normal systolic function. Atria Normal left atrium. Normal right atrium. Mitral Valve Mild mitral annular calcification. There is no mitral valve stenosis. Tricuspid Valve Normal tricuspid valve. Mild (1+) tricuspid valve insufficiency. Right ventricular systolic pressure estimated to be 26 mmHg. Aortic Valve Trisinus/trileaflet aortic valve. Mild focal aortic valve calcification. There is no aortic stenosis. Pulmonic Valve Normal pulmonic valve. Great Vessels Normal aortic root. Pericardium/Pleural No pericardial effusion. Medication Diluted definity 4.0ml given slow IV push to enhance endocardial definition. MMode/2D Measurements & Calculations LVIDd: 4.2 cm IVSd: 1.0 cm Ao root diam: 3.2 cm LVIDs: 2.7 cm LVPWd: 1.2 cm RVDd: 2.4 cm FS: 35.7 % LAV(MOD-bp): 56.0 ml LVAd ap4: 26.1 cm2 LVAd ap2: 16.8 cm2 LAV(MOD-bp) Indexed: 31.3 ml/m2 LVLd ap4: 8.2 cm LVLd ap2: 7.1 cm LAV(MOD-sp2): 51.7 ml EDV(MOD-sp4): 68.0 ml EDV(MOD-sp2): 33.0 ml LAV(MOD-sp4): 53.8 ml EDV(sp4-el): 70.6 ml EDV(sp2-el): 33.5 ml LVAs ap4: 15.2 cm2 LVAs ap2: 9.9 cm2 LVLs ap4: 7.2 cm LVLs ap2: 6.4 cm ESV(MOD-sp4): 28.7 ml ESV(MOD-sp2): 13.2 ml ESV(sp4-el): 27.2 ml ESV(sp2-el): 13.0 ml EF(MOD-sp4): 57.8 % EF(MOD-sp2): 60.1 % EF(sp4-el): 61.5 % SV(MOD-sp4): 39.3 ml SV(MOD-sp2): 19.9 ml SV(sp4-el): 43.4 ml LA A4 area: 19.2 cm2 LA dimension(2D): 3.4 cm RA A4 area: 13.3 cm2 Time Measurements MV dec time: 0.26 sec Doppler Measurements & Calculations MV E max raul: 72.3 cm/sec Lat Peak E' Raul: 7.7 cm/sec Med Peak E' Raul: 4.6 cm/sec MV A max raul: 83.9 cm/sec E/E' lat: 9.4 E/E' med: 15.8 MV E/A: 0.86 MV V2 max: 94.1 cm/sec MV P1/2t max raul: 65.3 cm/sec Ao V2 max: 101.1 cm/sec MV max P.5 mmHg MV P1/2t: 72.0 msec Ao max P.1 mmHg MV V2 mean: 57.1 cm/sec Ao V2 mean: 81.8 cm/sec MV mean P.4 mmHg MV dec slope: 265.5 cm/sec2 Ao mean P.8 mmHg MV V2 VTI: 17.6 cm MVA(P1/2t): 3.1 cm2 Ao V2 VTI: 22.8 cm AV (velocity ratio): 0.67 LV V1 max: 90.6 cm/sec TR max raul: 240.8 cm/sec LV V1 max P.3 mmHg TR max P.2 mmHg LV V1 mean P.4 mmHg LV V1 mean: 53.1 cm/sec LV V1 VTI: 15.2 cm ECHO/Echo Complete W/ Contrast Interpretation Summary Normal LV systolic function. The estimated ejection fraction is 65 %. Mild (1+) tricuspid valve insufficiency. No significant change from prior echocardiogram Compared to prior study, there is no significant change. Ordering Physician: Edwin Kaplan Referring Physician: Kannan Garcia Performed By: Wendi Limon RDCS, RVT
--- NOTE | 2022-12-19 08:30 | CON.PCM.CA_ITS ---
<Statement entered by Bhanu Milian MD - 12/19/22 16:13> Pt seen & evaluated w/SONYA. I personally interviewed & exam the pt. I was involved in all aspects of pt's orders, interpretation of results & treatment Assessment & Plan Assessment/Plan (1) Chest pain: (2) History of coronary artery stent placement: (3) Essential (primary) hypertension: (4) Hyperlipidemia: QUALIFIERS: Hyperlipidemia type: pure hypercholesterolemia Qualified Code(s): E78.00 - Pure hypercholesterolemia, unspecified; E78.0 - Pure hypercholesterolemia PLAN: Plan * Pt underwent a cardiac cath, she has a High-grade lesion involving a calcified ostium of the circumflex artery the stent in the LAD is patent and she had a lesion in the diagonal as well as the mid in-stent restenosis of around 50% and a calcified eccentric lesion in the RCA,It was felt that this should be evaluated by CT surgery because of the significant lesion at the ostium of the circumflex. She was referred to Dr. Rose at [facility]. She will follow-up with them on an outpatient basis. * Would recommend maximizing her medications by increasing her isosorbide to 60 mg a day. She will continue with her aspirin, high intensity atorvastatin, carvedilol, clopidogrel, losartan. * We will follow-up with patient closely in office. HPI Consult Data Date of Consult: 12/19/22 HPI Narrative HPI Narrative: LACY ALVARADO, is a 72 F who presented to [facility] on 12/18/22 with Chest pain, she felt short of breath was nauseated had pressure in her chest. This discomfort was similar to what she had when she had her previous stenting.Her troponins were negative patient was admitted to PCU for observation. Since her chest discomfort was similar to what it was prior to her previous stenting it was felt that we should pursue a diagnostic heart catheterization. This is scheduled for later on today. Patient was last seen in our office in January 2022. She does have a history of hypertension, hyperlipidemia, obesity, coronary artery disease with angioplasty and stenting to her mid LAD in 2018. Heart catheterization in 2019 demonstrated disease in her distal LAD of 60%, circumflex 50% stenosis, RCA 60% stenosis. [facility] Medical History Abdominal pain Acute back pain Anemia Arthritis Atherosclerotic heart disease of deering coronary artery without angina pectoris Cardiology follow-up encounter Cervical radiculopathy Chronic diastolic CHF (congestive heart failure) Colon cancer screening Compression fracture of lumbar spine, non-traumatic Congestive heart failure (CHF) Conversion disorder Cough CPAP (continuous positive airway pressure) dependence Diabetes Diabetes mellitus type 2 in nonobese Diabetes type 2, controlled Dysuria Dysuria Essential (primary) hypertension Foreign body in stomach GERD (gastroesophageal reflux disease) Health care maintenance Hives Hyperglycemia due to type 2 diabetes mellitus Hyperlipidemia Left ankle pain Left shoulder pain Memory changes Non-smoker Non-toxic goiter Obesity Obstructive sleep apnea Osteoarthritis Osteoporosis Personal history of colonic polyps Rheumatoid arthritis RIGHT FOOT HEEL SPUR Right groin pain Right hip pain Right shoulder pain Routine health maintenance Seasonal allergies Seizure disorder Shortness of breath on exertion Sleep apnea Therapeutic drug monitoring Type 2 diabetes mellitus Urinary frequency Urinary frequency Wears glasses Home Medications multivitamin 1 tab PO DAILY vitamin 05/20/19 [History Last Taken 12/16/22] blood-glucose meter (True Metrix Air Glucose Meter kit) #1 ea 02/03/20 [Rx Last Taken Unknown] calcium citrate 200 mg (950 mg) tablet 200 mg PO BID supplement 05/21/20 [History Last Taken 12/16/22] disability placard #1 ea 06/27/20 [Rx Last Taken Unknown] aspirin 81 mg tablet,delayed release (Adult Low Dose Aspirin) 81 mg PO DAILY heart 08/13/20 [History Last Taken 12/11/22] blood sugar diagnostic (True Metrix Glucose Test Strip) #100 ea 07/17/21 [Rx Last Taken Unknown] lancets 33 gauge (BD Ultra Fine Lancets) 04/02/22 [History Last Taken Unknown] atorvastatin 80 mg tablet 80 mg PO QHS cholesterol #90 tabs 06/11/22 [Rx Last Taken 12/16/22] clopidogrel 75 mg tablet See Rx Instructions .Route .COMPLEX #90 TABLETS 08/20/22 [Rx Last Taken 12/16/22] isosorbide mononitrate 30 mg tablet,extended release 24 hr See Rx Instructions .Route .COMPLEX #90 TABLETS 08/20/22 [Rx Last Taken 12/16/22] losartan 50 mg tablet See Rx Instructions .Route .COMPLEX #180 TABLETS 08/20/22 [Rx Last Taken 12/16/22] hydroxychloroquine 200 mg tablet See Rx Instructions .Route .COMPLEX #90 tabs 08/25/22 [Rx Last Taken 12/16/22] divalproex 250 mg tablet,delayed release 250 mg PO DAILY #90 tabs 10/02/22 [Rx Last Taken 12/16/22] divalproex 500 mg tablet,delayed release (Depakote) 1,000 mg PO .COMPLEX 10/03/22 [History Last Taken 12/16/22] carvedilol 12.5 mg tablet See Rx Instructions .Route .COMPLEX #180 tabs 12/08/22 [Rx Last Taken 12/16/22] sitagliptin phosphate 100 mg tablet (Januvia) See Rx Instructions .Route .COMPLEX #90 tabs 12/08/22 [Rx Last Taken 12/16/22] denosumab 60 mg/mL subcutaneous syringe (Prolia) 60 mg subcut [id number] #1 mL 12/11/22 [Rx Last Taken Unknown] pantoprazole 40 mg tablet,delayed release 40 mg PO DAILY #90 tabs 12/11/22 [Rx Last Taken 12/16/22] Allergy/AdvReac Type Severity Reaction Status Date / Time prednisone AdvReac Severe Hives Verified 12/18/22 05:23 Family History Grandmother Alcoholism Cancer Arthritis Mother Alcoholism Diabetes blood clots Hypertension Grandfather Heart disease Sister Thyroid disorder Other Breast cancer Cervical cancer Colon cancer Surgical History H/O: hysterectomy History of cardiac catheterization History of carpal tunnel surgery History of section History of coronary artery stent placement (03/22/18) History of left heart catheterization (09/20/18) Social History Smoking Status: Never smoker second hand exposure: No alcohol intake: current alcohol intake frequency: holidays/special occasions only substance use type: does not use what type of physical activity do you participate in: none ROS Constitutional Constitutional: Denies change in weight, chills, fatigue, frequent falls, headache(s) or lethargy Eyes Eyes: Denies acute decrease in peripheral vision, blurry vision or change in vision ENT HEENT: Denies dizziness, dry mouth, epistaxis, headache(s), tinnitus or vertigo Cardiovascular Cardiovascular: Reports chest pain at rest, chest pain with activity, dyspnea at rest and dyspnea on exertion; Denies claudication, edema, irregular heart rhythm, lightheadedness, orthopnea, orthostatic symptoms, palpitations or pedal edema Respiratory/Chest Respiratory/Chest: Denies cough, dyspnea, dyspnea on exertion, tachypnea or wheezing Gastrointestinal Gastrointestinal: Denies abdominal pain, bloating, coffee ground emesis, diarrhea, heartburn, hematemesis, hematochezia, melena or nausea Genitourinary Genitourinary: Denies hematuria Musculoskeletal Musculoskeletal: Denies myalgias, numbness or tingling Neurologic Neurologic: Denies abnormal gait, abnormal speech, memory loss, paresthesias or weakness Physical Exam Const alert, oriented x3, no apparent distress and healthy appearing HEENT normocephalic, head/scalp atraumatic, hearing grossly normal bilaterally, external ears normal, external nose normal and moist oral mucous membranes Eyes PERRL, EOMs intact bilaterally, conjunctivae normal and no scleral icterus Neck no lymphadenopathy, supple and no JVD Cardio regular rate, regular rhythm, S1 normal heart sound, S2 normal heart sound, no murmurs, no rub, no gallops, no clicks, no JVD and peripheral pulses 2+ throughout GI normal to inspection, nondistended, normoactive bowel sounds, soft to palpation, non-tender and non-distended Extremity normal to inspection, normal capillary refill, no clubbing, cyanosis or edema and no pedal edema Neuro oriented x3, CN's II-XII intact bilaterally, moves all extremities and no focal motor deficits Psych cooperative and affect normal Risk Stratification Risk Stratification Applicable: Yes Age >/= 65: Yes >/= 3 CAD Risk Factors (HTN, HLD, DM, family hx of CAD, or current smoker): Yes Aspirin Use in the Past 7 Days: Yes Severe Angina (>/= episodes in 24 hours): Yes EKG ST Changes >/= 0.5mm: No Positive Cardiac Marker: Yes DONYA Risk Stratification Score: 5 DONYA % Risk: 25% Risk Objective Data Vital Signs: Vital Signs Temp Pulse Resp BP Pulse Ox O2 Del Method 97.6 F L 78 18 135/70 H 98 Room Air 12/19/22 06:29 12/19/22 06:29 12/19/22 06:29 12/19/22 06:29 12/19/22 06:29 12/19/22 07:50 Oxygen Delivery Method Room Air Weight: 171 lb 11.841 oz Body Mass Index (BMI) 31.4 Intake & Output: Intake and Output for Last 24 Hours 12/17/22 12/18/22 12/19/22 23:59 23:59 23:59 Intake Total 706.3 / 706.3 Balance 706.3 / 706.3 Lab / Micro Data 12/18/22 05:50 12/18/22 05:50 Labs: Laboratory Results - last 24 hr 12/18/22 09:30: PT 12.8, INR 1.0, APTT 27.4, Troponin I High Sens 5 12/18/22 11:50: Troponin I High Sens 5 12/19/22 06:26: POC Glucose 101 Cardiology Labs/Tests 12/18/22 09:30: PT 12.8, INR 1.0, APTT 27.4 Radiography Diagnostic Testing: CORONARY ANGIOGRAPHY 12/2022: 1. Left main calcified distally, with the distal left main around 20-30% The left main coronary artery bifurcating to left anterior descending and left circumflex The left anterior descending is a large vessel reach all the way to the apex In the mid LAD after the second diagonal branch there is a in-stent restenosis which is around 50% Ist diagonal which is moderate in size has a mid eccentric atherosclerosis of at least around 60 to 70%. The LAD itself is a large vessel reach all the way to the apex with a DONYA-3 flow in the LAD and patency of the long segment of LAD stent is noted. The left circumflex artery calcified ostium of around 80% large OM1 and OM 2 branches RCA is calcified proximally with the mid RCA eccentric lesion of around 50 to 60% RCA is dominant giving branches to RPDA and posterolateral branch
[2022-12-19] MEDS: Divalproex Sodium 250 MG Tablet 1000 MG PO (09:56)
--- NOTE | 2022-12-19 11:03 | PRO.PCM_ITS ---
Procedure Report Date of Procedure: 12/19/22 Left heart catheterization. 1. Moderate sedation 2. Placement of 6 Polish sheath in the right radial artery 3. Selective left angiography 4. Selective right coronary angiography 5. Measurement of LVEDP 6. Pullback pressure 7. Placement of TR band to close the right radial artery arteriotomy site. Preprocedure diagnosis: 72-year-old patient, with history of CAD has CAD Prior PCI stent of the left anterior descending artery Multiple other risk factor for CAD. With diabetes mellitus, Patient seen and evaluated by her primary director of professional services Dr. Johnson with a stress test in 2019 which is negative And she had a stent to the left anterior descending artery. Now presenting with symptoms of chest pain with a negative cardiac work-up with a high sensitive troponins. And I reviewed all her current evaluation which included the EKG Cardiac markers, current medication which include dual antiplatelet therapy with aspirin and Plavix. And on physical exam her cardiac exam essentially normal she further evaluated by echocardiogram which showed LV function is preserved with no significant valve abnormality. Consent; Risk and benefit of procedure explained detail to the patient agreed to proceed informed consent obtained. Diagnostic catheter used; 1. 5 Polish [place] catheter Medication used in the [employer] she was given a cocktail; of verapamil, heparin as well as nitroglycerin Also patient has moderate sedation with fentanyl and Versed. Procedure in detail; Under fluoroscopic guidance we will proceed with 5 Polish [place] catheter advanced Yris cannulated the left main without difficulty Multiple views of the left coronary system were obtained. Following the same catheter was used cannulated the RCA ostium and multiple views of the RCA obtained. The same catheter was used to cross aortic valve placed in the mid ventricle LVEDP measured as well as a pullback pressure recorded Hemodynamics; LVEDP within normal around 12 mmHg There is no gradient across aortic valve. Coronary angiography; 1. Left main calcified distally, with the distal left main around 20-30% The left main coronary artery bifurcating to left anterior descending and left circumflex The left anterior descending is a large vessel reach all the way to the apex In the mid LAD after the second diagonal branch there is a in-stent restenosis which is around 50% Ist diagonal which is moderate in size has a mid eccentric atherosclerosis of at least around 60 to 70%. The LAD itself is a large vessel reach all the way to the apex with a DONYA-3 flow in the LAD and patency of the long segment of LAD stent is noted. The left circumflex artery calcified ostium of around 80% large OM1 and OM 2 branches RCA is calcified proximally with the mid RCA eccentric lesion of around 50 to 60% RCA is dominant giving branches to RPDA and posterolateral branch Conclusion and recommendations; 72-year-old patient with history of CAD multiple other risk factors diabetes hypertension hyperlipidemia history of stroke patient presented with symptoms of chest pain typical of angina with a negative cardiac work-up with a series of high sensitive troponins and echocardiogram High-grade lesion involving a calcified ostium of the circumflex artery the stent in the LAD is patent and she had a lesion in the diagonal as well as the mid in-stent restenosis of around 50% and a calcified eccentric lesion in the RCA based on the clinical presentation patient currently has been on Plavix and aspirin. I recommended further evaluation and assessment as cardiac team approach including evaluation by the cardiovascular surgeon because of the tight lesion in the ostium of the circumflex artery. I will discuss this with the cardiovascular surgeon and we will plan to transfer over to [facility]. Some Once stable patient will follow up with her primary director of professional services Dr. Johnson for continuation of cardiac care. The finding of cardiac catheterization discussed in detail with the patient as well I discussed with her daughter. No complication in the [employer] Bhanu Milian MD,FACC,[facility]
[2022-12-19] MEDS: Hydroxychloroquine 200 MG Tablet PO (12:19)
[2022-12-19] MEDS: Calcium Carbonate 500 MG Tablet PO (12:19)
[2022-12-19] MEDS: Pantoprazole Sodium 40 MG Tablet PO (12:19)
--- NOTE | 2022-12-19 13:56 | CASEMGMT ---
?Met with patient to complete ROJAS form. ROJAS form explained to patient who voiced understanding and signed form. Original form placed in pt?s chart and copy provided to patient. Lily Vaca, Discharge Planning Asst.?
--- NOTE | 2022-12-19 15:00 | CASEMGMT ---
Tertiary facilities in network with patient's insurance: [facility], , [facility]. Valeri Madden
--- NOTE | 2022-12-19 15:37 | PCM.DC ---
Discharge Instructions Diet Discharge Diet: Carb Control Diet Activity Discharge Activity: Return to Normal Activity Weight Bearing Status: Full weight bearing Follow Up Care Test Results: Test results from this visit will be discussed in further detail at your follow-up appointment, if applicable. Pending Tests Upon Discharge: Echo report Discharge Plan Admission Admit Date/Time: 12/18/22 10:48 Primary Reason for Your Visit: Chest pain Attending Provider: Edwin Kaplan Primary Care Provider: Kannan Garcia Consulting Providers: Bhanu Milian Instructions Additional Instructions / Restrictions: Please start taking isosorbide mononitrate 60 mg daily as instructed by cardiology. Take all other other home medications as prescribed. Follow-up with the cardiothoracic surgery team at [facility] as discussed. Discharge Orders/Prescriptions Prescriptions: New isosorbide mononitrate 60 mg Tablet Extended Release 24 Hr 60 mg PO DAILY 30 Days Qty: 30 0RF Continued multivitamin Tablet 1 tab PO DAILY calcium citrate 200 mg (950 mg) tablet 200 mg PO BID aspirin [Adult Low Dose Aspirin] 81 mg tablet,delayed release (DR/EC) 81 mg PO DAILY (DME) lancets [BD Ultra Fine Lancets] 33 gauge misc See Rx Instructions .Route Rx Instructions: As directed divalproex [Depakote] 500 mg tablet,delayed release (DR/EC) 1,000 mg PO .COMPLEX Rx Instructions: Take 2 tablets orally every evening (along with 250 mg tablet for a total evening dose of 1250 mg) and 2 tablet every morning. divalproex 250 mg tablet,delayed release (DR/EC) 250 mg PO DAILY Qty: 90 1RF Rx Instructions: Take with 1000 mg Divalproex for a total evening dose of 1250 mg daily. pantoprazole 40 mg tablet,delayed release (DR/EC) 40 mg PO DAILY Qty: 90 0RF Rx Instructions: Take 30 minutes before breakfast (DME) blood-glucose meter [True Metrix Air Glucose Meter] Kit See Rx Instructions .ROUTE .MEDSUPPLY Qty: 1 0RF Rx Instructions: As directed (DME) disability placard See Rx Instructions .ROUTE .MEDSUPPLY Qty: 1 0RF Rx Instructions: As directed, Length of time: 5 years (DME) True Metrix Glucose Test Strip Strip See Rx Instructions .ROUTE .MEDSUPPLY Qty: 100 3RF Rx Instructions: check twice a day and as needed atorvastatin 80 mg tablet 80 mg PO QHS Qty: 90 3RF losartan 50 mg tablet See Rx Instructions .ROUTE .COMPLEX Qty: 180 3RF Dose Instruction: TAKE 1 TABLET BY MOUTH TWICE DAILY Rx Instructions: TAKE 1 TABLET BY MOUTH TWICE DAILY clopidogrel 75 mg tablet See Rx Instructions .ROUTE .COMPLEX Qty: 90 3RF Dose Instruction: TAKE 1 TABLET BY MOUTH EVERY DAY Rx Instructions: TAKE 1 TABLET BY MOUTH EVERY DAY hydroxychloroquine 200 mg tablet See Rx Instructions .ROUTE .COMPLEX Qty: 90 3RF Dose Instruction: TAKE 1 TABLET BY MOUTH TWICE DAILY WITH MEALS Rx Instructions: TAKE 1 TABLET BY MOUTH TWICE DAILY WITH MEALS carvedilol 12.5 mg tablet See Rx Instructions .ROUTE .COMPLEX Qty: 180 1RF Dose Instruction: TAKE 1 TABLET BY MOUTH TWICE DAILY Rx Instructions: TAKE 1 TABLET BY MOUTH TWICE DAILY Januvia 100 mg tablet See Rx Instructions .ROUTE .COMPLEX Qty: 90 1RF Dose Instruction: TAKE 1 TABLET BY MOUTH DAILY Rx Instructions: TAKE 1 TABLET BY MOUTH DAILY Prolia 60 mg/mL syringe 60 mg subcut [id number] Qty: 1 2RF Discontinued isosorbide mononitrate 30 mg tablet extended release 24 hr See Rx Instructions .ROUTE .COMPLEX Qty: 90 3RF Dose Instruction: TAKE 1 TABLET BY MOUTH EVERY DAY Rx Instructions: TAKE 1 TABLET BY MOUTH EVERY DAY Referrals / Follow Up: Kannan Garcia MD [Primary Care Provider] - Disposition Disposition (needs filled in before D/C Order can be placed): Home, Self Care
--- NOTE | 2022-12-19 15:41 | PCM.DC.SUM ---
Providers Date of Admission: 12/18/22 Date of Discharge: 12/19/22 Primary Care Physician: Dr. Kannan Garcia MD Consultations 12/18/22 13:05 Consult: Cardiology Routine Consulting Provider: Bhanu Milian Reason for Consult: chest pain EMERGENT Consult: No MD Notified: Yes Date Notified: 12/18/22 Time Notified: 13:05 Method of Notification: Text Reason For Visit: CHEST PAIN, HX CAD Diagnosis Discharge Diagnosis (1) Chest pain: Status: Acute Code(s): R07.9 - Chest pain, unspecified (2) History of coronary artery stent placement: Status: Chronic Code(s): Z95.5 - Presence of coronary angioplasty implant and graft (3) Essential (primary) hypertension: Status: Chronic Code(s): I10 - Essential (primary) hypertension (4) Hyperlipidemia: Status: Chronic Code(s): E78.5 - Hyperlipidemia, unspecified Qualifiers: Hyperlipidemia type: pure hypercholesterolemia Qualified Code(s): E78.00 - Pure hypercholesterolemia, unspecified; E78.0 - Pure hypercholesterolemia Medications at Discharge Home Medications multivitamin 1 tab PO DAILY vitamin 05/20/19 blood-glucose meter (True Metrix Air Glucose Meter kit) #1 ea 02/03/20 calcium citrate 200 mg (950 mg) tablet 200 mg PO BID supplement 05/21/20 disability placard #1 ea 06/27/20 aspirin 81 mg tablet,delayed release (Adult Low Dose Aspirin) 81 mg PO DAILY heart 08/13/20 blood sugar diagnostic (True Metrix Glucose Test Strip) #100 ea 07/17/21 lancets 33 gauge (BD Ultra Fine Lancets) 04/02/22 atorvastatin 80 mg tablet 80 mg PO QHS cholesterol #90 tabs 06/11/22 clopidogrel 75 mg tablet See Rx Instructions .Route .COMPLEX #90 TABLETS 08/20/22 losartan 50 mg tablet See Rx Instructions .Route .COMPLEX #180 TABLETS 08/20/22 hydroxychloroquine 200 mg tablet See Rx Instructions .Route .COMPLEX #90 tabs 08/25/22 divalproex 250 mg tablet,delayed release 250 mg PO DAILY #90 tabs 10/02/22 divalproex 500 mg tablet,delayed release (Depakote) 1,000 mg PO .COMPLEX 10/03/22 carvedilol 12.5 mg tablet See Rx Instructions .Route .COMPLEX #180 tabs 12/08/22 sitagliptin phosphate 100 mg tablet (Januvia) See Rx Instructions .Route .COMPLEX #90 tabs 12/08/22 denosumab 60 mg/mL subcutaneous syringe (Prolia) 60 mg subcut [id number] #1 mL 12/11/22 pantoprazole 40 mg tablet,delayed release 40 mg PO DAILY #90 tabs 12/11/22 isosorbide mononitrate 60 mg tablet,extended release 24 hr 60 mg PO DAILY 30 days #30 tabs 12/19/22 Hospital Course Operations None Procedures Cardiac catheterization, Transthoracic echo and - (Chest x-ray) Summary of Care Provided Minutes Spent on Discharge: 38 Hospital Course: Nery Clark is a 72-year-old female with history significant for CAD s/p stenting on Plavix (follows w/ Dr. Johnson), hypertension, seizures, [id number] type 2 diabetes and GERD who presented to the [facility] ED on 12/18 with chest pain. She stated that the pain started the evening prior to admission. She tried to go to bed, but it woke her up from sleep multiple times and then spread to numbness and tingling in her left hand along with shortness of breath and nausea. She also had a pressure in the left side of her chest that would not go away, which was similar to the discomfort she had in the past when she required stents. This prompted her to come in for evaluation. Labs on admission were fairly benign. Troponin was negative. EKG reportedly showed no acute changes, however I was unable to view this. Chest x-ray is nonacute. Cardiology evaluated and determined patient required left heart cath for further evaluation. LHC on 12/[address] Milian had the following findings: In the mid LAD after second diagonal branch, there is an in-stent restenosis around 50%. First diagonal which is moderate in size has a mid eccentric atherosclerosis of at least 60 to 70%. Left circumflex artery calcified ostium of around 80% in the large OM1 and OM 2 branches. Cardiology recommended further evaluation by cardiothoracic surgery because of the tight lesion in the ostium of the circumflex artery. She is planned for an outpatient appointment with them in [place] early next week. She tolerated the catheterization well and was stable afterwards. A transthoracic echocardiogram was done post catheterization, read was pending on discharge. She was discharged home in stable condition. Discharge diagnoses: Chest pain, improved CAD s/p stenting Hypertension Seizures [id number] type 2 diabetes GERD PCP follow-up: Patient will be following up with cardiothoracic surgery in [place] to discuss options for intervention on her high-grade ostial lesion in the circumflex artery. Increased her Imdur from 30 mg to 60 mg daily per cardiology recommendations. Echo read was pending on discharge, please follow-up. Total clinical time spent by myself addressing the patient's discharge needs: 38 minutes. Physical Exam Const alert and oriented x3 Constitutional Narrative: Pleasant elderly female, obese, sitting comfortably in bed, conversing normally, no acute distress. General Appearance: cooperative and comfortable HEENT normocephalic, head/scalp atraumatic, hearing grossly normal bilaterally, nasal mucous membranes and turbinates normal and moist oral mucous membranes Eyes PERRL, EOMs intact bilaterally and conjunctivae normal Neck full ROM, no lymphadenopathy and supple Lymph Lymphatic: no lymphadenopathy noted Chest inspection of chest normal Resp normal respiratory effort, normal air movement, no use of accessory muscles and clear to auscultation bilaterally Cardio regular rate, regular rhythm, no murmurs and peripheral pulses 2+ throughout GI normal to inspection, nondistended, normoactive bowel sounds, soft to palpation, non-tender and non-distended Back/Spine normal ROM Extremity normal to inspection and full ROM Extremity Narrative: Mild bilateral lower extremity nonpitting edema up to mid david noted. Skin no rashes or lesions noted Psych mental status grossly normal Weight / BMI Weight Weight: 77.9 kg Body Mass Index (BMI) 31.4 ABG / Lab / Microbiology Data 12/18/22 05:50 12/18/22 05:50 Laboratory: Laboratory Results - last 24 hr 12/19/22 06:26: POC Glucose 101 D/C Instructions Discharge Diet: Carb Control Diet Weight Bearing Status: Full weight bearing Pending Tests Upon Discharge: Echo report Meaningful Use Info Meaningful Use Diagnoses (Choose all that apply): None applicable Discharge Plan Admission Admit Date/Time: 12/18/22 10:48 Primary Reason for Your Visit: Chest pain Attending Provider: Edwin Kaplan Primary Care Provider: Kannan Garcia Consulting Providers: Bhanu Milian Instructions Additional Instructions / Restrictions: Please start taking isosorbide mononitrate 60 mg daily as instructed by cardiology. Take all other other home medications as prescribed. Follow-up with the cardiothoracic surgery team at [place] as discussed. Discharge Orders/Prescriptions Prescriptions: New isosorbide mononitrate 60 mg Tablet Extended Release 24 Hr 60 mg PO DAILY 30 Days Qty: 30 0RF Continued multivitamin Tablet 1 tab PO DAILY calcium citrate 200 mg (950 mg) tablet 200 mg PO BID aspirin [Adult Low Dose Aspirin] 81 mg tablet,delayed release (DR/EC) 81 mg PO DAILY (DME) lancets [BD Ultra Fine Lancets] 33 gauge misc See Rx Instructions .Route Rx Instructions: As directed divalproex [Depakote] 500 mg tablet,delayed release (DR/EC) 1,000 mg PO .COMPLEX Rx Instructions: Take 2 tablets orally every evening (along with 250 mg tablet for a total evening dose of 1250 mg) and 2 tablet every morning. divalproex 250 mg tablet,delayed release (DR/EC) 250 mg PO DAILY Qty: 90 1RF Rx Instructions: Take with 1000 mg Divalproex for a total evening dose of 1250 mg daily. pantoprazole 40 mg tablet,delayed release (DR/EC) 40 mg PO DAILY Qty: 90 0RF Rx Instructions: Take 30 minutes before breakfast (DME) blood-glucose meter [True Metrix Air Glucose Meter] Kit See Rx Instructions .ROUTE .MEDSUPPLY Qty: 1 0RF Rx Instructions: As directed (DME) disability placard See Rx Instructions .ROUTE .MEDSUPPLY Qty: 1 0RF Rx Instructions: As directed, Length of time: 5 years (DME) True Metrix Glucose Test Strip Strip See Rx Instructions .ROUTE .MEDSUPPLY Qty: 100 3RF Rx Instructions: check twice a day and as needed atorvastatin 80 mg tablet 80 mg PO QHS Qty: 90 3RF losartan 50 mg tablet See Rx Instructions .ROUTE .COMPLEX Qty: 180 3RF Dose Instruction: TAKE 1 TABLET BY MOUTH TWICE DAILY Rx Instructions: TAKE 1 TABLET BY MOUTH TWICE DAILY clopidogrel 75 mg tablet See Rx Instructions .ROUTE .COMPLEX Qty: 90 3RF Dose Instruction: TAKE 1 TABLET BY MOUTH EVERY DAY Rx Instructions: TAKE 1 TABLET BY MOUTH EVERY DAY hydroxychloroquine 200 mg tablet See Rx Instructions .ROUTE .COMPLEX Qty: 90 3RF Dose Instruction: TAKE 1 TABLET BY MOUTH TWICE DAILY WITH MEALS Rx Instructions: TAKE 1 TABLET BY MOUTH TWICE DAILY WITH MEALS carvedilol 12.5 mg tablet See Rx Instructions .ROUTE .COMPLEX Qty: 180 1RF Dose Instruction: TAKE 1 TABLET BY MOUTH TWICE DAILY Rx Instructions: TAKE 1 TABLET BY MOUTH TWICE DAILY Januvia 100 mg tablet See Rx Instructions .ROUTE .COMPLEX Qty: 90 1RF Dose Instruction: TAKE 1 TABLET BY MOUTH DAILY Rx Instructions: TAKE 1 TABLET BY MOUTH DAILY Prolia 60 mg/mL syringe 60 mg subcut [id number] Qty: 1 2RF Discontinued isosorbide mononitrate 30 mg tablet extended release 24 hr See Rx Instructions .ROUTE .COMPLEX Qty: 90 3RF Dose Instruction: TAKE 1 TABLET BY MOUTH EVERY DAY Rx Instructions: TAKE 1 TABLET BY MOUTH EVERY DAY Referrals / Follow Up: Kannan Garcia MD [Primary Care Provider] - Disposition Disposition (needs filled in before D/C Order can be placed): Home, Self Care Charges/Coding Visit Charges Inpatient E&M: 50571 Disch Hosp >30min
--- NOTE | 2022-12-19 18:12 | NURSING ---
Reviewed charting with Elizabeth Worley RN
== END 2022-12-19 15:41 | disposition home or self-care (01) ==
LOC: ED 06:31 → PCU 10:52
PROVIDERS: Emergency Medicine; Admitting Provider Hospitalist; Emergency Provider Emergency Medicine; PCP Internal Medicine; Visit Provider Hospitalist
DX: R07.89 Other chest pain (principal); I11.0 Hypertensive heart disease with heart failure; I50.32 Chronic diastolic (congestive) heart failure; G40.909 Epilepsy, unspecified, not intractable, without status epilepticus; E11.9 Type 2 diabetes mellitus without complications; T82.855A Stenosis of coronary artery stent, initial encounter; K21.9 Gastro-esophageal reflux disease without esophagitis; E66.9 Obesity, unspecified; I25.10 Atherosclerotic heart disease of native coronary artery without angina pectoris; Z95.5 Presence of coronary angioplasty implant and graft; E78.00 Pure hypercholesterolemia, unspecified; Z68.31 Body mass index [BMI] 31.0-31.9, adult; Z79.82 Long term (current) use of aspirin; Z79.899 Other long term (current) drug therapy; R20.0 Anesthesia of skin; R06.02 Shortness of breath
CPT/HCPCS: 36415; 71045; 80048; 82962; 84484; 85025; 85379; 85610; 85730; 93005; 93306; 93454; 96361; 96374; 96375; 99152; 99153; 99221; 99285; J7030; J7040; Q9957; Q9967; A4216; C1769; C1894; C8929; G0378; J2405

== ENCOUNTER 2023-01-11 15:45 | Inpatient (IN) | payer MEDICARE, SELFPAY ==
[2020-12-31 12:33] VITALS: BMI 32.7
[2023-01-11 16:52] VITALS: BP 125/69; PULSE 62; PULSE 86; RESP 16; RESP 17; TEMP 36.3; O2SAT 96
[2023-01-11 17:23] VITALS: BMI 30.9
[2023-01-11 17:26] VITALS: BMI 31.1
[2023-01-11] MEDS: Hydroxychloroquine 200 MG Tablet PO (18:13)
--- NOTE | 2023-01-11 20:20 | HP.PCM_ITS ---
HPI - General General Date of Admission: 01/11/23 Date of Service: 01/12/23 Chief Complaint: Here for rehabilitation. HPI Narrative LACY ALVARADO, is a 72 Female who presents 12/18/2022 [facility] cheat pain, serial troponins negative. 12/19/2022 Echo Normal LV systolic function. EF 65%. Mild tricuspid insufficiency. 12/19/2022 Heart cath showed multiple blockages. 12/19/2022 Transfer to [facility] to consider surgical revascularization. 01/01/2023 Dr. Rose performed CABG x 3. 01/08/2023 Inpatient rehabilitation denied. Consider SNF. Postoperative course uncomplicated. 01/11/2023 Admit to TCU with debility, here for rehabilitation, strengthning, prior to discharge home alone. [facility] Medical History (Updated 01/11/23 @ 20:[address] Robbin Carlos MD) Abdominal pain Acute back pain Anemia Arthritis Atherosclerotic heart disease of [place] coronary artery without angina pectoris Cardiology follow-up encounter Cervical radiculopathy Chronic diastolic CHF (congestive heart failure) Colon cancer screening Compression fracture of lumbar spine, non-traumatic Congestive heart failure (CHF) Conversion disorder Cough CPAP (continuous positive airway pressure) dependence Diabetes Diabetes mellitus type 2 in nonobese Diabetes type 2, controlled Dysuria Dysuria Essential (primary) hypertension Foreign body in stomach GERD (gastroesophageal reflux disease) Health care maintenance History of coronary artery disease History of hypertension Hives Hyperglycemia due to type 2 diabetes mellitus Hyperlipidemia Left ankle pain Left shoulder pain Memory changes Non-smoker Non-toxic goiter Obesity Obstructive sleep apnea Osteoarthritis Osteoporosis Personal history of colonic polyps Rheumatoid arthritis RIGHT FOOT HEEL SPUR Right groin pain Right hip pain Right shoulder pain Routine health maintenance Seasonal allergies Seizure disorder Shortness of breath on exertion Sleep apnea Therapeutic drug monitoring Type 2 diabetes mellitus Urinary frequency Urinary frequency Wears glasses Home Medications multivitamin 1 tab PO DAILY vitamin 05/20/19 [History Last Taken 12/16/22] blood-glucose meter (True Metrix Air Glucose Meter kit) #1 ea 02/03/20 [Rx Last Taken Unknown] calcium citrate 200 mg (950 mg) tablet 200 mg PO DAILY supplement 05/21/20 [History Last Taken 12/16/22] disability placard #1 ea 06/27/20 [Rx Last Taken Unknown] aspirin 81 mg tablet,delayed release (Adult Low Dose Aspirin) 81 mg PO DAILY heart 08/13/20 [History Last Taken 12/11/22] blood sugar diagnostic (True Metrix Glucose Test Strip) #100 ea 07/17/21 [Rx Last Taken Unknown] lancets 33 gauge (BD Ultra Fine Lancets) 04/02/22 [History Last Taken Unknown] atorvastatin 80 mg tablet 80 mg PO QHS cholesterol #90 tabs 06/11/22 [Rx Last Taken 12/16/22] clopidogrel 75 mg tablet See Rx Instructions .Route .COMPLEX heart #90 TABLETS 08/20/22 [Rx Last Taken 12/16/22] losartan 50 mg tablet See Rx Instructions .Route .COMPLEX #180 TABLETS 08/20/22 [Rx Last Taken 12/16/22] hydroxychloroquine 200 mg tablet See Rx Instructions .Route .COMPLEX immunosuppressant #90 tabs 08/25/22 [Rx Last Taken 12/16/22] divalproex 250 mg tablet,delayed release 250 mg PO DAILY seizure #90 tabs 10/02/22 [Rx Last Taken 12/16/22] divalproex 500 mg tablet,delayed release (Depakote) 1,000 mg PO .COMPLEX seizures 10/03/22 [History Last Taken 12/16/22] denosumab 60 mg/mL subcutaneous syringe (Prolia) 60 mg subcut [id number] #1 mL 12/11/22 [Rx Last Taken Unknown] pantoprazole 40 mg tablet,delayed release 40 mg PO DAILY stomach #90 tabs 12/11/22 [Rx Last Taken 12/16/22] isosorbide mononitrate 60 mg tablet,extended release 24 hr 60 mg PO DAILY 30 days #30 tabs 12/19/22 [Rx Last Taken Unknown] carvedilol 12.5 mg tablet See Rx Instructions .Route .COMPLEX #180 tabs 12/22/22 [Rx Last Taken Unknown] sitagliptin phosphate 100 mg tablet (Januvia) See Rx Instructions .Route .CO MPLEX diabetes #90 tabs 12/22/22 [Rx Last Taken Unknown] acetaminophen 500 mg tablet 1,000 mg PO TID pain 01/11/23 [History Last Taken Unknown] duloxetine 30 mg capsule,delayed release (Cymbalta) 30 mg PO DAILY mood 01/11/23 [History Last Taken Unknown] ipratropium 0.5 mg-albuterol 3 mg (2.5 mg base)/3 mL nebulization soln 3 ml inhalation TID PRN wheezing or SOB 01/11/23 [History Last Taken Unknown] metoprolol tartrate 50 mg tablet 50 mg PO BID heart 01/11/23 [History Last Taken Unknown] oxycodone 5 mg tablet 5 mg PO Q6H PRN pain 01/11/23 [History Last Taken Unknown] polyethylene glycol 3350 17 gram oral powder packet (Miralax) 17 g PO DAILY bowels 01/11/23 [History Last Taken Unknown] Allergy/AdvReac Type Severity Reaction Status Date / Time prednisone AdvReac Severe Hives Verified 12/18/22 05:23 Family History Grandmother Alcoholism Cancer Arthritis Mother Alcoholism Diabetes blood clots Hypertension Grandfather Heart disease Sister Thyroid disorder Other Breast cancer Cervical cancer Colon cancer Surgical History (Updated 01/11/23 @ 20:[address] Robbin Carlos MD) H/O: hysterectomy History of cardiac catheterization History of carpal tunnel surgery History of section History of coronary artery bypass graft x 3 History of coronary artery stent placement (03/22/18) History of left heart catheterization (09/20/18) Social History (Updated 01/11/23 @ 20:[address] Robbin Carlos MD) household members: none Smoking Status: Never smoker second hand exposure: No alcohol intake: current alcohol intake frequency: holidays/special occasions only substance use type: does not use what type of physical activity do you participate in: none ROS Constitutional Constitutional: Denies chills, fever(s) or weight gain ENT HEENT: Denies headache(s), nasal congestion or nasal discharge Cardiovascular Cardiovascular: Denies chest pain or palpitations Respiratory/Chest Respiratory/Chest: Denies cough, excessive phlegm production or shortness of breath with exertion Gastrointestinal Gastrointestinal: Denies abdominal pain, nausea or vomiting Genitourinary Genitourinary: Denies dysuria Musculoskeletal Musculoskeletal: Denies joint pain or joint swelling Integumentary Integumentary: Denies rash or wounds Neurologic Neurologic: Denies focal weakness, numbness or tingling Psychiatric Psychiatric: Denies anxiety, auditory hallucinations, depression, homicidal ideation or suicidal ideation Vital Signs Vital Signs Vital Signs: 01/11/23 16:52 Temperature 97.3 F L Temperature Source Temporal Pulse Rate 62 Respiratory Rate 17 Blood Pressure 125/69 H Blood Pressure Mean 87 Blood Pressure Source Monitor Blood Pressure Position Semi-Fowlers Blood Pressure Location Left Arm Pulse Ox 96 Oxygen Delivery Method Nasal Cannula Oxygen Flow Rate (L/min) 2 Weight Weight: 76.685 kg Body Mass Index (BMI) 31.1 Physical Exam Const alert General Appearance: cooperative HEENT normocephalic Eyes PERRL and EOMs intact bilaterally Neck supple, no JVD and no carotid bruits Chest Chest Narrative: Sternal incision clean, dry, intact. Resp normal respiratory effort, normal air movement and clear to auscultation bilaterally Cardio regular rate and regular rhythm GI normal to inspection, nondistended, normoactive bowel sounds, non-tender and non-distended Extremity normal capillary refill General Extremity: Negative for edema Skin no rashes or lesions noted General Skin Exam: no breakdown Psych affect normal Appearance: appropriate Results Lab / Micro Data 01/12/23 05:55 01/12/23 05:21 Assessment & Plan Assessment/Plan (1) Debility: (2) History of coronary artery bypass graft x 3: (3) Coronary artery disease: (4) Hypertension: (5) GERD (gastroesophageal reflux disease): (6) Hyperlipidemia: QUALIFIERS: Hyperlipidemia type: pure hypercholesterolemia Qualified Code(s): E78.00 - Pure hypercholesterolemia, unspecified; E78.0 - Pure hypercholesterolemia (7) Osteoporosis: (8) Diabetes: (9) Rheumatoid arthritis: (10) Stroke: PLAN: Plan 72 year old female with below past medical history hospitalized for CABG x 3 01/01/2023, admitted to TCU with debility, here for rehabilitation, strengthening, prior to discharge home alone. * Debility - PT/OT. * Pain - Tylenol 1000mg tid, Oxycodone 5mg q6h prn. * Bowel - Miralax 17gm daily. * Adult immunization - Administer pneumonia vaccine, covid19 vaccine, flu vaccine as appropriate. * DVT prophylaxis - Hold, on dual antiplatelet therapy. * Coronary artery disease s/p CABG x 3 - Metoprolol 50mg bid, Plavix 75mg daily, Aspirin 81mg daily. * Hyperlipidemia - Atorvastatin 80mg qhs. * Seizure disorder - Depakote 1000mg bid, 250mg qhs. 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 * Rheumatoid Arthritis - Plaquenil 200mg bicm. * Shortness of breath - Duoneb 3ml tid prn. * Diabetes Mellitus II - Tradjenta 5mg daily. * Nutrition - MVI daily. * GERD - Pantoprazole 40MG daily, TUMS 500mg daily.
[2023-01-11] MEDS: Acetaminophen 500 MG Tablet 1000 MG PO (21:52)
[2023-01-11] MEDS: Divalproex (ER) 500 MG Tablet 1000 MG PO (21:52)
[2023-01-11 21:53] VITALS: BP 114/59; PULSE 86
[2023-01-11] MEDS: Divalproex Sodium 250 MG Tablet PO (21:53)
[2023-01-11] MEDS: Metoprolol Tartrate 50 MG Tablet PO (21:53)
[2023-01-11] MEDS: Atorvastatin Calcium 80 MG Tablet PO (21:53)
[2023-01-12 05:33] LABS: Absolute Lymphocyte Count 1.85 X10^3/uL (0.83-4.51); Absolute Neutrophil Count 3.7 X10^3/uL (2.0-7.7); Basophil# 0.03 X10^3/uL; Basophil% 0.5 % (0-1); Eosinophil# 0.24 X10^3/uL; Eosinophils% 3.6 % (0-5); Hematocrit 30.5 % (37-47); Hemoglobin 10.1 g/dL (12.0-15.0); Lymphocyte # 1.85 X10^3/ul (0.83-4.51); Lymphocyte % 28.1 % (19-41); Mean Corp Hgb Conc 33.1 g/dL (32-36); Mean Corpuscular Hgb 31.7 pg (27.0-32.0); Mean Corpuscular Volume 95.6 fL (81-99); Mean Platelet Vol. 10.1 fl (6.2-12.0); Monocyte# 0.66 X10^3/uL; NRBC Flagged by Analyzer 0 % (0-5); Neutrophil # 3.71 X10^3/uL (2.7-7.7); Neutrophil % 56.4 % (47-70); Platelet Count 261 K/mm3 (150-450); RBC Distribution Width CV 14.9 % (11.6-14.6); RBC Distribution Width SD 52.1 fl (35.1-43.9); Red Blood Count 3.19 M/mm3 (4.2-5.4); White Blood Count 6.6 K/mm3 (4.4-11.0)
[2023-01-12] MEDS: Acetaminophen 500 MG Tablet 1000 MG PO ×3 (05:45→22:32)
[2023-01-12 06:00] VITALS: BMI 31.1
[2023-01-12 06:03] LABS: Anion Gap 5 (5-15); BUN 20 mg/dL (7-18); BUN/Creat Ratio 21.4 RATIO (10-20); Calcium,Total 8.7 mg/dL (8.5-10.1); Chloride 106 mmol/L (98-107); Creatinine, Serum 0.94 mg/dL (0.55-1.02); EST Glomerular Filtration Rate 63 mL/min (>60); Est Glom Filt Rate - Afr Amer 76 mL/min (>60); Estimated Creatinine Clearance 44.04 ml/min; Glucose 85 mg/dL (74-106); Sodium Level 138 mmol/L (136-145)
[2023-01-12 06:46] LABS: Bedside Glucose 93 mg/dL (74-106)
[2023-01-12] MEDS: Hydroxychloroquine 200 MG Tablet PO ×2 (09:18→17:16)
[2023-01-12] MEDS: Multivitamins,Therapeutic Tablet 1 TABLET PO (09:18)
[2023-01-12] MEDS: DULoxetine Hcl 30 MG Capsule PO (09:18)
[2023-01-12] MEDS: Pantoprazole Sodium 40 MG Tablet PO (09:18)
[2023-01-12 09:19] VITALS: BP 96/55; PULSE 77
[2023-01-12] MEDS: Divalproex (ER) 500 MG Tablet 1000 MG PO ×2 (09:19→22:30)
[2023-01-12] MEDS: Aspirin E.C. 81 MG Tablet PO (09:19)
[2023-01-12] MEDS: Clopidogrel Bisulfate 75 MG Tablet PO (09:20)
[2023-01-12] MEDS: LINAGLIPTIN 5 MG TABLET PO (09:20)
[2023-01-12] MEDS: Calcium Carbonate 500 MG Tablet PO (09:20)
[2023-01-12] MEDS: Tuberculin,Purif.prot.deriv. 50 TU/ML Vial 0.1 ML ID (09:41)
--- NOTE | 2023-01-12 09:50 | NURSING ---
Leasing Specialist Note; Activity Asset: Purvi Gabriel is independent in her choice of daily activities. She has her bible and daily bread she will read and will watch tv. Her family and friends will visits and she welcomes visits from the radio repair teacher and therapy dog when available. Staff will remind her of daily activities and respect her right to say no.
[2023-01-12] MEDS: oxyCODONE 5 MG Tablet PO (12:42)
[2023-01-12 13:39] VITALS: BP 118/58; PULSE 84; RESP 14; TEMP 36.1; O2SAT 96
--- NOTE | 2023-01-12 14:37 | CPS ---
pt has own smi from another facility. Has knowledge and does on own.
[2023-01-12] MEDS: Glucerna Shake 120 ML LIQUID PO (17:15)
[2023-01-12 22:15] VITALS: PULSE 70
[2023-01-12 22:15] LABS: Bedside Glucose 121 mg/dL (74-106)
[2023-01-12] MEDS: Divalproex Sodium 250 MG Tablet PO (22:29)
[2023-01-12 22:30] VITALS: PULSE 70
[2023-01-12] MEDS: Metoprolol Tartrate 50 MG Tablet PO (22:30)
[2023-01-12] MEDS: Atorvastatin Calcium 80 MG Tablet PO (22:30)
[2023-01-13] MEDS: Acetaminophen 500 MG Tablet 1000 MG PO ×3 (05:51→21:57)
[2023-01-13 06:00] VITALS: BMI 31.4
[2023-01-13 06:53] LABS: Bedside Glucose 85 mg/dL (74-106)
[2023-01-13] MEDS: Hydroxychloroquine 200 MG Tablet PO ×2 (09:01→17:35)
[2023-01-13] MEDS: Multivitamins,Therapeutic Tablet 1 TABLET PO (09:01)
[2023-01-13] MEDS: Pantoprazole Sodium 40 MG Tablet PO (09:01)
[2023-01-13 09:02] VITALS: BP 106/53; PULSE 76
[2023-01-13] MEDS: DULoxetine Hcl 30 MG Capsule PO (09:02)
[2023-01-13] MEDS: Metoprolol Tartrate 50 MG Tablet PO ×2 (09:02→21:56)
[2023-01-13] MEDS: Divalproex (ER) 500 MG Tablet 1000 MG PO ×2 (09:02→21:58)
[2023-01-13] MEDS: Aspirin E.C. 81 MG Tablet PO (09:02)
[2023-01-13] MEDS: Polyethylene Glycol 3350 17 GM PACKET PO (09:02)
[2023-01-13] MEDS: Clopidogrel Bisulfate 75 MG Tablet PO (09:03)
[2023-01-13] MEDS: Calcium Carbonate 500 MG Tablet PO (09:03)
[2023-01-13] MEDS: LINAGLIPTIN 5 MG TABLET PO (09:03)
--- NOTE | 2023-01-13 09:20 | NURSING ---
Updated patient that new covid booster is coming out and pharmacy should have it next week. She would like to hold off on current booster and receive new one when available.
[2023-01-13 10:08] VITALS: BP 106/53; PULSE 76; RESP 16; TEMP 36.1; O2SAT 96
--- NOTE | 2023-01-13 14:37 | CASEMGMT ---
Social Work SW met with patient to complete initial assessment. Introduced self and role. Verified contacts. Discussed code status. Pt confirmed full code. Educated to [facility] insurance with [employer] 01/14, $0 copays, continued stay is not guaranteed with each review. Pt explains she is the legal guardian of 17 yo grandson since he was 9 yo. Grandson goes to school, plays football and works on the weekend. He does not drive and neither does pt. Pt states she has lived in her apartment for 10 years and will not be moving. Stated she needs two bedrooms are those are located on the 3rd floor. SW and pt discussed finances. Pt states she does struggle monthly with raising grandson. SW offered to refer to Medicaid. Pt agreeable. Pt states she does get seizures. SW offered LifeAlert resources. Pt agreed, but again, finances are limited. SW educated the if [facility] is approved, it could cover a LifeAlert. Pt appreciative of assistance. SW sent secure email referral to [facility] to complete Medicaid application. EVIN will continue to follow for DC planning. Arlette Turner, DEPUTY FIRE MARSHAL LEARNING CENTER INSTRUCTOR
[2023-01-13] MEDS: Glucerna Shake 120 ML LIQUID PO ×2 (17:38→21:55)
--- NOTE | 2023-01-13 20:10 | NURSING ---
PT AND FAMILY NOTIFIED OF A PT TESTING POSITIVE FOR COVID.
[2023-01-13] MEDS: oxyCODONE 5 MG Tablet PO (21:54)
[2023-01-13 21:56] VITALS: BP 108/54; PULSE 82
[2023-01-13] MEDS: Atorvastatin Calcium 80 MG Tablet PO (21:57)
[2023-01-13] MEDS: Divalproex Sodium 250 MG Tablet PO (21:58)
[2023-01-14] MEDS: Acetaminophen 500 MG Tablet 1000 MG PO ×3 (05:25→21:39)
[2023-01-14 06:34] LABS: Bedside Glucose 84 mg/dL (74-106)
[2023-01-14 09:50] VITALS: BP 98/50; PULSE 77
[2023-01-14] MEDS: Pantoprazole Sodium 40 MG Tablet PO (09:53)
[2023-01-14] MEDS: LINAGLIPTIN 5 MG TABLET PO (09:53)
[2023-01-14] MEDS: Calcium Carbonate 500 MG Tablet PO (09:53)
[2023-01-14] MEDS: Clopidogrel Bisulfate 75 MG Tablet PO (09:53)
[2023-01-14] MEDS: Multivitamins,Therapeutic Tablet 1 TABLET PO (09:53)
[2023-01-14] MEDS: DULoxetine Hcl 30 MG Capsule PO (09:54)
[2023-01-14] MEDS: Aspirin E.C. 81 MG Tablet PO (09:54)
[2023-01-14] MEDS: Divalproex (ER) 500 MG Tablet 1000 MG PO ×2 (09:54→21:39)
[2023-01-14] MEDS: Hydroxychloroquine 200 MG Tablet PO ×2 (09:54→17:16)
[2023-01-14 10:01] VITALS: BP 98/50; PULSE 77
--- NOTE | 2023-01-14 10:58 | CASEMGMT ---
Social Work IDT met with patient, son then niece via conference call for care plan meeting. Discussed patient's progress in PT/OT/ST/SN. Educated to [facility] [facility]14 and continued stay is not guaranteed with each review. Educated to [employer] contacting pt to complete [facility] application. Discussed HHC vs OP and any DME needs. SW will continue to follow for DC planning. Arlette Turner CHIP MUCKER LABORER OPERATOR
[2023-01-14] MEDS: Pneumococcal Vaccine 20 Valent 0.5 ML Syringe IM (11:09)
--- NOTE | 2023-01-14 11:13 | NURSING ---
PREVNAR 20 GIVEN IN LT DELT. PT TOLERATED WELL. WILL CONTINUE TO MONITOR.
[2023-01-14] MEDS: Glucerna Shake 120 ML LIQUID PO ×2 (12:00→21:43)
[2023-01-14] MEDS: Polyethylene Glycol 3350 17 GM PACKET PO (13:53)
[2023-01-14 15:31] VITALS: BP 105/52; PULSE 89; RESP 18; TEMP 36.5; O2SAT 93
[2023-01-14] MEDS: Atorvastatin Calcium 80 MG Tablet PO (21:36)
[2023-01-14 21:37] VITALS: BP 120/65; PULSE 83
[2023-01-14] MEDS: Metoprolol Tartrate 25 MG Tablet PO (21:37)
[2023-01-14] MEDS: Divalproex Sodium 250 MG Tablet PO (21:38)
[2023-01-14] MEDS: oxyCODONE 5 MG Tablet PO (21:43)
[2023-01-15] MEDS: Glucerna Shake 120 ML LIQUID PO ×3 (06:02→22:58)
[2023-01-15] MEDS: Acetaminophen 500 MG Tablet 1000 MG PO ×2 (06:02→22:55)
[2023-01-15 06:25] LABS: Bedside Glucose 79 mg/dL (74-106)
[2023-01-15] MEDS: Hydroxychloroquine 200 MG Tablet PO ×2 (09:34→17:51)
[2023-01-15] MEDS: Pantoprazole Sodium 40 MG Tablet PO (09:34)
[2023-01-15] MEDS: Aspirin E.C. 81 MG Tablet PO (09:34)
[2023-01-15] MEDS: Multivitamins,Therapeutic Tablet 1 TABLET PO (09:34)
[2023-01-15] MEDS: DULoxetine Hcl 30 MG Capsule PO (09:34)
[2023-01-15] MEDS: Divalproex (ER) 500 MG Tablet 1000 MG PO ×2 (09:34→22:56)
[2023-01-15] MEDS: Calcium Carbonate 500 MG Tablet PO (09:35)
[2023-01-15] MEDS: Polyethylene Glycol 3350 17 GM PACKET PO (09:35)
[2023-01-15] MEDS: Clopidogrel Bisulfate 75 MG Tablet PO (09:35)
[2023-01-15] MEDS: LINAGLIPTIN 5 MG TABLET PO (09:36)
[2023-01-15 09:39] VITALS: BP 86/46; PULSE 78
[2023-01-15] MEDS: Magnesium Citrate 300 ML PO (09:46)
--- NOTE | 2023-01-15 13:56 | CHAPLAIN ---
Type of Pastoral Visit _x__ Initial Visit ___ Follow-up Visit ___ On-call Visit ___ General Patient Visit ___ Spiritual Assessment ___ Family Conference ___ Bereavement ___ Rapid Response ___ Code Blue ___ Other (describe below) Pastoral Care Referral From _x__ Patient ___ Family ___ Nurse ___ Physician ___ Substation Electrician ___ Wafer Batter Mixer ___ Other (describe below) Sacrament/Intervention _x__ Active listening ___ Anointing ___ Mormonism ___ Bereavement ___ Communion ___ Wendi exploration ___ ___ Life review _x__ Prayer ___ Reconciliation ___ Sacrament of Sick _x__ Supportive presence ___ Wedding ___ Other (describe below) Pastoral Comments patient gives some background on his recent surgery and goal of going home with need to walk up three flights of steps; pt identifies as a Mandaen with Bible reading and prayer as priorities; pt seemingly ends the conversation with thank you for stopping but then eagerly says yes when asked if she would want a prayer spoken; offer of ongoing support given
--- NOTE | 2023-01-15 13:57 | PCM.PN.DRR ---
Documented by User: Bridger Hamilton 01/15/23 15:57 TCU RX Drug Regimen Review Subjective/Objective Subjective/Objective: Subjective: 72 year old female with below past medical history hospitalized for CABG x 3 01/01/2023, admitted to TCU with debility, here for rehabilitation, strengthening, prior to discharge home alone. Objective: Allergies prednisone Adverse Reaction (Severe, Verified 12/18/22 05:23) Hives Current Medications Generic Name Dose Route Start Last Admin Trade Name Freq PRN Reason Stop Dose Admin Acetaminophen 1,000 mg 01/11/23 22:00 01/15/23 13:25 Acetaminophen 500 Mg Tablet PO Not Given TID KIT Albuterol/Ipratropium 3 ml 01/11/23 16:26 Ipratropium/Albuterol Sulfate 3 Ml Ampul.Neb INHALATION TID PRN wheezing or SOB Aspirin 81 mg 01/12/23 10:00 01/15/23 09:34 Aspirin E.C. 81 Mg Tablet PO 81 mg DAILY KIT Administration Atorvastatin Calcium 80 mg 01/11/23 22:00 01/14/23 21:36 Atorvastatin Calcium 80 Mg Tablet PO 80 mg QHS KIT Administration Calcium Carbonate 500 mg 01/12/23 10:00 01/15/23 09:35 Calcium Carbonate 500 Mg Tablet PO 500 mg DAILY KIT Administration Clopidogrel Bisulfate 75 mg 01/12/23 10:00 01/15/23 09:35 Clopidogrel Bisulfate 75 Mg Tablet PO 75 mg DAILY KIT Administration Divalproex Sodium 1,000 mg 01/11/23 22:00 01/15/23 09:34 Divalproex (Er) 500 Mg Tablet PO 1,000 mg BID KIT Administration Divalproex Sodium 250 mg 01/11/23 22:00 01/14/23 21:38 Divalproex Sodium 250 Mg Tablet PO 250 mg QHS KIT Administration Duloxetine HCl 30 mg 01/12/23 10:00 01/15/23 09:34 Duloxetine Hcl 30 Mg Capsule PO 30 mg DAILY KIT Administration Hydroxychloroquine Sulfate 200 mg 01/11/23 17:00 01/15/23 09:34 Hydroxychloroquine 200 Mg Tablet PO 200 mg BIDCM KIT Administration Linagliptin 5 mg 01/12/23 10:00 01/15/23 09:36 Linagliptin 5 Mg Tablet PO 5 mg DAILY KIT Administration Metoprolol Tartrate 25 mg 01/14/23 22:00 01/15/23 09:39 Metoprolol Tartrate 25 Mg Tablet PO Not Given BID KIT Multivitamins 1 tablet 01/12/23 08:00 01/15/23 09:34 Multivitamins,Therapeutic Tablet PO 1 tablet DAILYCM KIT Administration Nutritional Formula (Lactose Free) 120 ml 01/12/23 17:00 01/15/23 13:16 Glucerna Shake 120 Ml Liquid PO Not Given 4X/DAY [facility] Oxycodone HCl 5 mg 01/11/23 16:26 01/14/23 21:43 Oxycodone 5 Mg Tablet PO 5 mg Q6H PRN Administration Pain Score 1-10 Pantoprazole Sodium 40 mg 01/12/23 08:00 01/15/23 09:34 Pantoprazole Sodium 40 Mg Tablet PO 40 mg DAILY@0800 KIT Administration Polyethylene Glycol 17 gm 01/12/23 10:00 01/15/23 09:35 Polyethylene Glycol 3350 17 Gm Packet PO 17 gm DAILY KIT Administration Senna/Docusate Sodium 1 tablet 01/15/23 07:57 Senna/Docusate Sodium 1 Tablet PO BID PRN Constipation Tuberculin PPD 0.1 ml 01/19/23 10:00 Tuberculin,Purif.Prot.Deriv. 50 Tu/Ml Vial ID 01/19/23 10:01 X1 ONE Problem List (Updated 01/11/23 @ 20:[address] Robbin Carlos MD) Stroke (Acute) Rheumatoid arthritis (Acute) Diabetes (Acute) Hypertension (Chronic) Coronary artery disease (Acute) Debility (Acute) History of coronary artery bypass graft x 3 (Acute) Hyperlipidemia (Chronic) Osteoporosis (Acute) GERD (gastroesophageal reflux disease) (Acute) Vital Signs Temp Pulse Resp BP Pulse Ox O2 Del Method O2 Flow Rate 97.7 F L 78 18 86/46 L 93 Room Air 2 01/14/23 15:31 01/15/23 09:39 01/14/23 15:31 01/15/23 09:39 01/14/23 15:31 01/14/23 22:00 01/11/23 16:52 Oxygen Flow Rate (L/min) 2 Oxygen Delivery Method Room Air Weight: 77.383 kg Body Mass Index (BMI) 31.4 Sodium 138 mmol/L (136-145) 01/12/23 05:21 Potassium 4.0 mmol/L (3.5-5.1) 01/12/23 05:21 Chloride 106 mmol/L (98-107) 01/12/23 05:21 Carbon Dioxide 27.0 mmol/L (21.0-32.0) 01/12/23 05:21 Anion Gap 5 (5-15) 01/12/23 05:21 BUN 20 mg/dL (7-18) H 01/12/23 05:21 Creatinine 0.94 mg/dL (0.55-1.02) 01/12/23 05:21 Est GFR (MDRD) Af Amer 76 mL/min (>60) 01/12/23 05:21 Est GFR (MDRD) Non-Af 63 mL/min (>60) 01/12/23 05:21 BUN/Creatinine Ratio 21.4 RATIO (10-20) H 01/12/23 05:21 Glucose 85 mg/dL (74-106) 01/12/23 05:21 Assessment/Plan: 1. Pain: acetaminophen 1000 mg PO TID, oxycodone 5 mg PO Q6H PRN pain. Patient has used 3 PRN doses of oxycodone since 01/11. Please continue to monitor for respiratory depression, syncope/ataxia (oxycodone Beer's criteria), pain levels, PRN pain med usage, and LFTs (AST/ALT = 28/32 on 08/13/22). 2. Bowel: polyethylene glycol 17 grams daily, senna/docusate 1 tablet PO BID PRN constipation. Patient has not received any doses of PRN senna/docusate as of yet (ordered 01/15/23). Patient does not have a documented bowel movement within the last 4 days (since admission). Please continue to monitor for diarrhea and constipation. 3. CAD s/p CABG x 3/hyperlipidemia: enteric coated aspirin 81 mg PO daily, atorvastatin 80 mg PO QHS, clopidogrel 71 mg PO daily, metoprolol tartrate 25 mg PO BID. Please continue to monitor for chest pain, muscle pain, GI distress or s/s of GI ulcer (aspirin Beer's criteria), s/s of bleeding, hemoglobin (Hgb = 10.1 on 01/12/23), platelet count (platelet count = 261 on 01/12/23), heart rate (recent range 62-89), blood pressure (recent range 86-125/46-69), LFTS (AST/ALT = 28/32 on 08/13/22), and lipids (LDL 124 on 01/10/22, cholesterol 195 on 01/10/22). Please consider ordering lipid panel as it has been greater than 1 year since most recent lipid level. 4. Rheumatoid arthritis: hydroxychloroquine 200 mg PO BIDCM. Please continue to monitor for eye function, and for s/s of skin reactions (TEN/DRESS/AGEP). 5. Shortness of breath: iptratropium/albuterol 3 mL inhalataion TID PRN shortness of breath. Patient has not required any PRN doses to date. Please continue to monitor for shortness of breath, PRN usage, HR (recent range 62-89), and for anticholinergic side effects such as dry mouth and constipation. 6. Diabetes Mellitus II: linagliptin 5 mg PO daily. Please continue to monitor BG (recently 79-121), Hgb A1C (Hgb A1c = 7.0 on 10/01/22),s/s of pancreatitis including abdominal pain and nausea, joint pain, and s/s of heart failure. 7. Nutrition: multivitamin 1 tablet PO daily, glucerna shake 120 mL PO 4 times daily. Please continue to monitor nutritional status. 8. GERD: pantoprazole 40 mg PO daily, calcium carbonate 500 mg PO daily. Please continue to monitor for s/s of GERD, diarrhea that could indicate clostridium difficile infection (pantoprazole Beer's criteria), and s/s of bone resorption such as fracture (pantoprazole Beer's criteria). Assessment/Plan for indications treated with psychotropic medications: 1. Seizures disorder: divalproex ER 1000 mg PO BID, divalproex 250 mg PO QHS (in addition to 1000 mg for a total evening dose of 1250 mg). Please continue to monitor for seizure activity, ammonia level if clinically indicated (ammonia = <10.0 on 07/23/20), syncope/ataxia/falls (divalproex Beer's criteria), LFTs (AST/ALT = 28/32 on 08/13/22), for s/s of bone marrow suppression (blood counts from 01/12 include: Hgb = 10.1, RBC = 3.19, PLT 261, WBC = 6.6). Seizure disorder, GDR not recommended. 2. Depression: duloxetine 30 mg PO daily. See physician note regarding stable long-term dose, GDR not recommended. Please continue to monitor for SI, ataxia/syncope/falls (duloxetine Beer's criteria), renal function (Beer's criteria; on 01/12/23 SCR = 0.94, creatinine clearance = 44), sodium level (Beer's criteria; sodium = 138 on 01/15/23), GI upset, and blood pressure (recent range 86-125/46-69). Medical chart and medication regimen reviewed. The following medication irregularities or issues were identified: 1. CAD s/p CABG x 3/hyperlipidemia: enteric coated aspirin 81 mg PO daily, atorvastatin 80 mg PO QHS, clopidogrel 71 mg PO daily, metoprolol tartrate 25 mg PO BID. Please continue to monitor for chest pain, muscle pain, GI distress or s/s of GI ulcer (aspirin Beer's criteria), s/s of bleeding, hemoglobin (Hgb = 10.1 on 01/12/23), platelet count (platelet count = 261 on 01/12/23), heart rate (recent range 62-89), blood pressure (recent range 86-125/46-69), LFTS (AST/ALT = 28/32 on 08/13/22), and lipids (LDL 124 on 01/10/22, cholesterol 195 on 01/10/22). Please consider ordering lipid panel as it has been greater than 1 year since most recent lipid level. Date Date of Note:: 01/15/23 Documented by User: Dr. Robbin Carlos MD 01/15/23 17:30 TCU RX Drug Regimen Review Provider Comments Provider responsibility Provider Comments to Recommendations by Pharmacy: Agree
[2023-01-15 15:34] VITALS: BP 110/56; PULSE 87; RESP 16; TEMP 36.6
--- NOTE | 2023-01-15 16:39 | NURSING ---
Patient and multiple family members in room updated that staff members tested positive for covid.
[2023-01-15] MEDS: Atorvastatin Calcium 80 MG Tablet PO (22:55)
[2023-01-15 22:56] VITALS: BP 117/63; PULSE 96
[2023-01-15] MEDS: Metoprolol Tartrate 25 MG Tablet PO (22:56)
[2023-01-15] MEDS: Divalproex Sodium 250 MG Tablet PO (22:56)
[2023-01-16] MEDS: Acetaminophen 500 MG Tablet 1000 MG PO ×3 (06:27→22:30)
[2023-01-16] MEDS: Glucerna Shake 120 ML LIQUID PO ×4 (06:29→22:32)
[2023-01-16 06:47] LABS: Bedside Glucose 90 mg/dL (74-106)
[2023-01-16] MEDS: Clopidogrel Bisulfate 75 MG Tablet PO (08:57)
[2023-01-16] MEDS: Multivitamins,Therapeutic Tablet 1 TABLET PO (08:58)
[2023-01-16] MEDS: Pantoprazole Sodium 40 MG Tablet PO (08:58)
[2023-01-16] MEDS: Aspirin E.C. 81 MG Tablet PO (08:58)
[2023-01-16] MEDS: Hydroxychloroquine 200 MG Tablet PO ×2 (08:58→17:20)
[2023-01-16] MEDS: Calcium Carbonate 500 MG Tablet PO (08:58)
[2023-01-16] MEDS: DULoxetine Hcl 30 MG Capsule PO (08:58)
[2023-01-16] MEDS: LINAGLIPTIN 5 MG TABLET PO (08:59)
[2023-01-16] MEDS: Divalproex (ER) 500 MG Tablet 1000 MG PO ×2 (09:00→22:30)
[2023-01-16 09:01] VITALS: BP 110/50; PULSE 83
[2023-01-16] MEDS: Metoprolol Tartrate 25 MG Tablet PO ×2 (09:01→22:31)
--- NOTE | 2023-01-16 10:56 | CASEMGMT ---
Social Work BIMS () and PHQ-9 () completed for MDS assessment. SW explored positive responses. Provided supportive listening. Pt expressed feeling like she is responsible for all of her family members, and this event disrupted everyone's life, stating I'm the rock. Pt also expressed having trouble falling asleep and feeling tired during the day, but noted she has LINA and has not used CPAP in awhile. SW encouraged to have family bring in CPAP to start using and staff can make adjustments if needed. Pt agreed. Pt noted she is still having poor appetite. SW offered to talk with Dr about medication intervention, that could also help with mood and sleep, but pt denied, and wants to see how things progress. SW provided emotional support and validated feelings. Commended pt for acknowledgement about moving forward, taking care of herself liek she should have been prior and having the motivation to keep progressing. SW offered ongoing support throughout stay as needed. Arlette Turner, EDEL INDUSTRIAL SAFETY AND HEALTH SPECIALIST
[2023-01-16 15:30] VITALS: BP 111/59; PULSE 84; RESP 16; TEMP 36.1; O2SAT 94
--- NOTE | 2023-01-16 15:55 | NURSING ---
Updated family that staff members and patients tested covid positive.
[2023-01-16 20:43] VITALS: BP 122/55; PULSE 82; RESP 16; TEMP 36.3; O2SAT 97
[2023-01-16 20:44] VITALS: PULSE 88
[2023-01-16] MEDS: Atorvastatin Calcium 80 MG Tablet PO (22:30)
[2023-01-16 22:31] VITALS: BP 122/55; PULSE 82
[2023-01-16] MEDS: Divalproex Sodium 250 MG Tablet PO (22:32)
[2023-01-17] MEDS: Acetaminophen 500 MG Tablet 1000 MG PO ×3 (05:45→21:46)
[2023-01-17] MEDS: Pantoprazole Sodium 40 MG Tablet PO (08:18)
[2023-01-17] MEDS: Hydroxychloroquine 200 MG Tablet PO ×2 (08:18→17:25)
[2023-01-17] MEDS: DULoxetine Hcl 30 MG Capsule PO (08:18)
[2023-01-17] MEDS: Multivitamins,Therapeutic Tablet 1 TABLET PO (08:18)
[2023-01-17] MEDS: Aspirin E.C. 81 MG Tablet PO (08:18)
[2023-01-17] MEDS: Clopidogrel Bisulfate 75 MG Tablet PO (08:19)
[2023-01-17] MEDS: Divalproex (ER) 500 MG Tablet 1000 MG PO ×2 (08:19→21:47)
[2023-01-17] MEDS: Calcium Carbonate 500 MG Tablet PO (08:19)
[2023-01-17] MEDS: LINAGLIPTIN 5 MG TABLET PO (08:19)
[2023-01-17 08:20] VITALS: BP 115/61; PULSE 82
[2023-01-17] MEDS: Metoprolol Tartrate 25 MG Tablet PO ×2 (08:20→21:48)
[2023-01-17 08:27] VITALS: PULSE 82; RESP 16; O2SAT 94
[2023-01-17 10:00] VITALS: BP 115/61; PULSE 82; RESP 18; TEMP 36.2; O2SAT 94
[2023-01-17 11:48] LABS: Bedside Glucose 80 mg/dL (74-106)
[2023-01-17] MEDS: Glucerna Shake 120 ML LIQUID PO ×3 (13:48→21:46)
[2023-01-17] MEDS: Divalproex Sodium 250 MG Tablet PO (21:47)
[2023-01-17 21:48] VITALS: BP 122/60; PULSE 88
[2023-01-17] MEDS: Atorvastatin Calcium 80 MG Tablet PO (21:48)
[2023-01-18] MEDS: Glucerna Shake 120 ML LIQUID PO ×4 (05:42→20:58)
[2023-01-18] MEDS: Acetaminophen 500 MG Tablet 1000 MG PO ×3 (05:43→20:59)
[2023-01-18 06:21] LABS: Bedside Glucose 72 mg/dL (74-106)
[2023-01-18 08:45] VITALS: BP 108/52; PULSE 79
[2023-01-18] MEDS: Aspirin E.C. 81 MG Tablet PO (08:45)
[2023-01-18] MEDS: Polyethylene Glycol 3350 17 GM PACKET PO (08:45)
[2023-01-18] MEDS: Calcium Carbonate 500 MG Tablet PO (08:45)
[2023-01-18] MEDS: LINAGLIPTIN 5 MG TABLET PO (08:45)
[2023-01-18] MEDS: Clopidogrel Bisulfate 75 MG Tablet PO (08:45)
[2023-01-18] MEDS: Metoprolol Tartrate 25 MG Tablet PO ×2 (08:45→20:59)
[2023-01-18] MEDS: Multivitamins,Therapeutic Tablet 1 TABLET PO (08:46)
[2023-01-18] MEDS: Hydroxychloroquine 200 MG Tablet PO ×2 (08:46→18:24)
[2023-01-18] MEDS: Pantoprazole Sodium 40 MG Tablet PO (08:46)
[2023-01-18] MEDS: Divalproex (ER) 500 MG Tablet 1000 MG PO ×2 (08:46→21:00)
[2023-01-18] MEDS: DULoxetine Hcl 30 MG Capsule PO (08:46)
[2023-01-18 10:30] VITALS: BP 108/52; PULSE 79; RESP 18; TEMP 36.2; O2SAT 92
--- NOTE | 2023-01-18 15:27 | NURSING ---
pt & family aware of + covid pts today
[2023-01-18 15:55] VITALS: BMI 30.8
[2023-01-18 20:59] VITALS: BP 107/63; PULSE 85
[2023-01-18] MEDS: Atorvastatin Calcium 80 MG Tablet PO (20:59)
[2023-01-18] MEDS: Divalproex Sodium 250 MG Tablet PO (21:00)
[2023-01-19] MEDS: Acetaminophen 500 MG Tablet 1000 MG PO ×2 (05:44→20:36)
[2023-01-19] MEDS: Glucerna Shake 120 ML LIQUID PO ×3 (05:46→20:34)
[2023-01-19 05:59] LABS: Absolute Lymphocyte Count 1.43 X10^3/uL (0.83-4.51); Absolute Neutrophil Count 3.6 X10^3/uL (2.0-7.7); Basophil# 0.03 X10^3/uL; Basophil% 0.5 % (0-1); Eosinophil# 0.26 X10^3/uL; Eosinophils% 4.3 % (0-5); Hematocrit 29.9 % (37-47); Hemoglobin 9.9 g/dL (12.0-15.0); Lymphocyte # 1.43 X10^3/ul (0.83-4.51); Lymphocyte % 23.7 % (19-41); Mean Corp Hgb Conc 33.1 g/dL (32-36); Mean Corpuscular Hgb 31.7 pg (27.0-32.0); Mean Corpuscular Volume 95.8 fL (81-99); Mean Platelet Vol. 11.1 fl (6.2-12.0); Monocyte# 0.66 X10^3/uL; Monocyte% 10.9 % (0-10); NRBC Flagged by Analyzer 0 % (0-5); Neutrophil # 3.59 X10^3/uL (2.7-7.7); Neutrophil % 59.6 % (47-70); Platelet Count 257 K/mm3 (150-450); RBC Distribution Width CV 14.9 % (11.6-14.6); RBC Distribution Width SD 52.6 fl (35.1-43.9); Red Blood Count 3.12 M/mm3 (4.2-5.4)
[2023-01-19 07:18] LABS: Anion Gap 6 (5-15); BUN 18 mg/dL (7-18); BUN/Creat Ratio 20.5 RATIO (10-20); Calcium,Total 8.6 mg/dL (8.5-10.1); Chloride 108 mmol/L (98-107); Creatinine, Serum 0.88 mg/dL (0.55-1.02); EST Glomerular Filtration Rate 68 mL/min (>60); Est Glom Filt Rate - Afr Amer 82 mL/min (>60); Estimated Creatinine Clearance 47.05 ml/min; Glucose 82 mg/dL (74-106); Potassium 4.2 mmol/L (3.5-5.1); Sodium Level 139 mmol/L (136-145)
--- NOTE | 2023-01-19 08:46 | NURSING ---
Supervisor Accounting Clerks Note; MDS for 01/18/2023 Complete
--- NOTE | 2023-01-19 11:55 | CASEMGMT ---
Social Work SW received information from [facility] that pt does not qualify for Medicaid Benefits. SW met with pt and explained. Pt understanding. MIC Braxton
[2023-01-19] MEDS: Pantoprazole Sodium 40 MG Tablet PO (12:05)
[2023-01-19] MEDS: Multivitamins,Therapeutic Tablet 1 TABLET PO (12:05)
[2023-01-19] MEDS: Hydroxychloroquine 200 MG Tablet PO ×2 (12:05→17:40)
[2023-01-19] MEDS: Divalproex (ER) 500 MG Tablet 1000 MG PO ×2 (12:06→20:36)
[2023-01-19 13:04] VITALS: PULSE 78
[2023-01-19] MEDS: Metoprolol Tartrate 25 MG Tablet PO ×2 (13:04→20:34)
[2023-01-19] MEDS: Clopidogrel Bisulfate 75 MG Tablet PO (13:04)
[2023-01-19] MEDS: Calcium Carbonate 500 MG Tablet PO (13:04)
[2023-01-19] MEDS: DULoxetine Hcl 30 MG Capsule PO (13:05)
[2023-01-19] MEDS: Aspirin E.C. 81 MG Tablet PO (13:05)
[2023-01-19] MEDS: Tuberculin,Purif.prot.deriv. 50 TU/ML Vial 0.1 ML ID (14:48)
[2023-01-19 15:03] VITALS: BP 121/65; PULSE 59; RESP 15; TEMP 36.1; O2SAT 99
--- NOTE | 2023-01-19 16:29 | NURSING ---
Family given update additional staff members have covid.
[2023-01-19 20:34] VITALS: BP 149/69; PULSE 83
[2023-01-19] MEDS: Atorvastatin Calcium 80 MG Tablet PO (20:35)
[2023-01-19] MEDS: Divalproex Sodium 250 MG Tablet PO (20:35)
[2023-01-20 05:47] LABS: Hematocrit 31.6 % (37-47); Hemoglobin 10.1 g/dL (12.0-15.0)
[2023-01-20] MEDS: Acetaminophen 500 MG Tablet 1000 MG PO ×2 (06:58→20:34)
[2023-01-20] MEDS: Multivitamins,Therapeutic Tablet 1 TABLET PO (09:47)
[2023-01-20] MEDS: Pantoprazole Sodium 40 MG Tablet PO (09:48)
[2023-01-20] MEDS: Aspirin E.C. 81 MG Tablet PO (09:48)
[2023-01-20] MEDS: Hydroxychloroquine 200 MG Tablet PO ×2 (09:48→18:09)
[2023-01-20] MEDS: Divalproex (ER) 500 MG Tablet 1000 MG PO ×2 (09:48→20:35)
[2023-01-20] MEDS: DULoxetine Hcl 30 MG Capsule PO (09:48)
[2023-01-20] MEDS: Clopidogrel Bisulfate 75 MG Tablet PO (09:49)
[2023-01-20] MEDS: Calcium Carbonate 500 MG Tablet PO (09:49)
[2023-01-20 09:53] VITALS: BP 91/45; PULSE 76
[2023-01-20] MEDS: Glucerna Shake 120 ML LIQUID PO ×3 (11:40→20:35)
[2023-01-20 16:00] VITALS: BP 103/55; PULSE 86; RESP 16; TEMP 36.3; O2SAT 96
--- NOTE | 2023-01-20 16:40 | CASEMGMT ---
Social Work SW spoke with pt to follow up on DC planning as insurance update is tomorrow. Pt is still fatiguing quickly, can only ambulate about 30 ft and doing 3 steps. SW inquired about DC plan and offered to assist with presenting alternative options. Pt states well I guess we'll just have to wait and see what the insurance says. SW encouraged to have thoughts and plans in place prior to ensure a smooth DC, as insurance only gives a 3 day notice for DC. Pt expressed understanding but could not offer any other plans. SW encouraged to think about it overnight and speak with family on DC plan. SW to update pt with outcome of insurance update. IDT is requesting additional time to improve on barriers to home. Arlette Turner, STATIONARY EQUIPMENT MECHANIC GEOTECHNICAL FIELD TECHNICIAN
[2023-01-20 20:34] VITALS: BP 127/63; PULSE 90
[2023-01-20] MEDS: Metoprolol Tartrate 25 MG Tablet PO (20:34)
[2023-01-20] MEDS: Atorvastatin Calcium 80 MG Tablet PO (20:34)
[2023-01-20] MEDS: Divalproex Sodium 250 MG Tablet PO (20:34)
[2023-01-21] MEDS: Glucerna Shake 120 ML LIQUID PO ×4 (05:10→21:51)
[2023-01-21] MEDS: Acetaminophen 500 MG Tablet 1000 MG PO ×3 (05:10→21:52)
--- NOTE | 2023-01-21 08:25 | NURSING ---
pt positive for covid, will notify family.
[2023-01-21 09:26] LABS: Alkaline Phosphatase 114 U/L (45-117)
[2023-01-21] MEDS: Aspirin E.C. 81 MG Tablet PO (10:17)
[2023-01-21] MEDS: Pantoprazole Sodium 40 MG Tablet PO (10:17)
[2023-01-21] MEDS: Divalproex (ER) 500 MG Tablet 1000 MG PO ×2 (10:17→21:51)
[2023-01-21] MEDS: Multivitamins,Therapeutic Tablet 1 TABLET PO (10:17)
[2023-01-21] MEDS: Calcium Carbonate 500 MG Tablet PO (10:17)
[2023-01-21] MEDS: DULoxetine Hcl 30 MG Capsule PO (10:17)
[2023-01-21 10:18] VITALS: PULSE 83
[2023-01-21] MEDS: Metoprolol Tartrate 25 MG Tablet PO ×2 (10:18→21:52)
[2023-01-21] MEDS: Clopidogrel Bisulfate 75 MG Tablet PO (10:18)
[2023-01-21] MEDS: Remdesivir 200 MG in 0.9% Normal Saline (250mL Bag) 210 ML 250 MG IV (14:24)
--- NOTE | 2023-01-21 15:30 | NURSING ---
family updated new covid patients on floor
[2023-01-21 16:00] VITALS: BP 116/62; PULSE 81; RESP 15; TEMP 36.8; O2SAT 99
[2023-01-21 21:52] VITALS: PULSE 60
[2023-01-21] MEDS: Divalproex Sodium 250 MG Tablet PO (21:52)
[2023-01-21] MEDS: Atorvastatin Calcium 80 MG Tablet PO (21:52)
[2023-01-21 22:00] VITALS: PULSE 90; RESP 14; O2SAT 99
[2023-01-22] VITALS (7 sets, daily range): BP systolic 115–124; BP diastolic 62–71; PULSE 69–92; RESP 16–18; TEMP 36.4–36.6; O2SAT 97–100; BMI 31.1
[2023-01-22] MEDS: Acetaminophen 500 MG Tablet 1000 MG PO ×3 (05:56→21:24)
[2023-01-22] MEDS: Glucerna Shake 120 ML LIQUID PO ×4 (05:57→23:20)
--- NOTE | 2023-01-22 06:03 | NURSING ---
Patient covid positive, afebrile, symptoms reported per patient: nasal congestion, sore throat, aches all over. RTN Tylenol administered per order. Written communication left for Dr. Carlos requesting throat lozenges and nasal spray to alleviate symptoms. No resp distress observed or reported. Call light in reach. Denies further requests. A&Ox3, able to voice needs.
[2023-01-22 06:07] LABS: Hematocrit 30.3 % (37-47); Hemoglobin 9.9 g/dL (12.0-15.0); Mean Corp Hgb Conc 32.7 g/dL (32-36); Mean Corpuscular Hgb 31.5 pg (27.0-32.0); Mean Corpuscular Volume 96.5 fL (81-99); Mean Platelet Vol. 11.5 fl (6.2-12.0); Platelet Count 204 K/mm3 (150-450); RBC Distribution Width CV 14.8 % (11.6-14.6); RBC Distribution Width SD 52.8 fl (35.1-43.9); Red Blood Count 3.14 M/mm3 (4.2-5.4); White Blood Count 4.7 K/mm3 (4.4-11.0)
[2023-01-22 07:17] LABS: ALB/GLOB Ratio 0.6 RATIO (0.9-2.4); AST(SGOT) 26 U/L (15-37); Alanine Aminotransfer ALT/SGPT 28 U/L (13-56); Albumin, Serum 2.5 g/dL (3.2-5.0); Alkaline Phosphatase 102 U/L (45-117); Anion Gap 6 (5-15); BUN 17 mg/dL (7-18); BUN/Creat Ratio 20.5 RATIO (10-20); Calcium,Total 8.5 mg/dL (8.5-10.1); Chloride 109 mmol/L (98-107); Creatinine, Serum 0.83 mg/dL (0.55-1.02); EST Glomerular Filtration Rate 72 mL/min (>60); Est Glom Filt Rate - Afr Amer 88 mL/min (>60); Estimated Creatinine Clearance 49.88 ml/min; Globulin 3.9 g/dL (2.2-4.2); Glucose 83 mg/dL (74-106); Potassium 4.2 mmol/L (3.5-5.1); Protein, Total 6.4 g/dL (6.4-8.2); Sodium Level 140 mmol/L (136-145)
[2023-01-22] MEDS: Pantoprazole Sodium 40 MG Tablet PO (08:56)
[2023-01-22] MEDS: Multivitamins,Therapeutic Tablet 1 TABLET PO (08:57)
[2023-01-22] MEDS: DULoxetine Hcl 30 MG Capsule PO (08:57)
[2023-01-22] MEDS: Divalproex (ER) 500 MG Tablet 1000 MG PO ×2 (08:57→21:20)
[2023-01-22] MEDS: Aspirin E.C. 81 MG Tablet PO (08:58)
[2023-01-22] MEDS: Calcium Carbonate 500 MG Tablet PO (08:58)
[2023-01-22] MEDS: Clopidogrel Bisulfate 75 MG Tablet PO (08:58)
[2023-01-22] MEDS: Metoprolol Tartrate 25 MG Tablet PO ×2 (08:58→21:21)
[2023-01-22] MEDS: 0.9% Saline Lock 10 ML Syringe IV (10:10)
[2023-01-22] MEDS: Remdesivir 100 MG in 0.9% Normal Saline (250mL Bag) 230 ML 250 MG IV (10:11)
[2023-01-22] MEDS: BENZOCAINE/MENTHOL 1 LOZENGE MUCOUS MEM (10:12)
[2023-01-22] MEDS: Sodium Chloride 0.65% 1 SPRAY SPRAY.BTL 2 SPRAY NASAL (12:04)
--- NOTE | 2023-01-22 13:37 | MDS.RN ---
Information for MDS was obtained from review of Clinical record, interview of resident, staff & direct observation of resident care.
--- NOTE | 2023-01-22 16:37 | CASEMGMT ---
Addendum entered by Arlette Turner 01/23/23 12:40: Pt lost appeal. Pt notified and confirmed DC home as planned. Original Note: Social Work Insurance issued LCD 01/25, DC 01/26. SW spoke with pt to notify, educate to appeal rights and plan for DC. Pt initially unsure of plan but after further discussion, pt electing to appeal, and if loses, pt will DC home with skilled HHC. SW offered HHC list with quality and resource data but pt does not have a preference on HHC. Pt also requesting BSC and FWW. SW phoned referral to [facility] for PT/OT/SN. Sent referral to [facility] for DME via [facility]. -- Appeal filed. . Plan: Pending appeal, DC home 01/26, [facility] PT/OT/SN, FWW, BSC Arlette Turner, EDEL GARAYW
[2023-01-22 17:37] LABS: Hemoglobin A1c 6.4 % (3.8-5.6)
--- NOTE | 2023-01-22 19:19 | DS.PCM_ITS ---
Providers Date of Admission: 01/11/23 Primary Care Physician: Dr. Kannan Garcia MD Reason For Visit: CABG X 3 Diagnosis Discharge Diagnosis (1) Debility: Status: Acute Code(s): R53.81 - Other malaise (2) History of coronary artery bypass graft x 3: Status: Acute Code(s): Z95.1 - Presence of aortocoronary bypass graft (3) Coronary artery disease: Status: Acute Code(s): I25.10 - Atherosclerotic heart disease of [place] coronary artery without angina pectoris (4) Hypertension: Status: Chronic Code(s): I10 - Essential (primary) hypertension (5) GERD (gastroesophageal reflux disease): Status: Acute Code(s): K21.9 - Gastro-esophageal reflux disease without esophagitis (6) Hyperlipidemia: Status: Chronic Code(s): E78.5 - Hyperlipidemia, unspecified Qualifiers: Hyperlipidemia type: pure hypercholesterolemia Qualified Code(s): E78.00 - Pure hypercholesterolemia, unspecified; E78.0 - Pure hypercholesterolemia (7) Osteoporosis: Status: Acute Code(s): M81.0 - Age-related osteoporosis without current pathological fracture (8) Diabetes: Status: Acute Code(s): E11.9 - Type 2 diabetes mellitus without complications (9) Rheumatoid arthritis: Status: Acute Code(s): M06.9 - Rheumatoid arthritis, unspecified (10) Stroke: Status: Acute Code(s): I63.9 - Cerebral infarction, unspecified Plan 72 year old female with below past medical history hospitalized for CABG x 3 01/01/2023, admitted to TCU with debility, here for rehabilitation, strengthenin g, prior to discharge home alone. * Debility - PT/OT. * Pain - Tylenol 1000mg tid, Oxycodone 5mg q6h prn. * Bowel - Miralax 17gm daily. * Adult immunization - Administer pneumonia vaccine, covid19 vaccine, flu vaccine as appropriate. * DVT prophylaxis - Hold, on dual antiplatelet therapy. * Coronary artery disease s/p CABG x 3 - Metoprolol 50mg bid, Plavix 75mg daily, Aspirin 81mg daily. * Hyperlipidemia - Atorvastatin 80mg qhs. * Seizure disorder - Depakote 1000mg bid, 250mg qhs. * Depression - Duloxetine 30mg daily, stable chronic extermination inspector use, GDR not recommended. * Rheumatoid Arthritis - Plaquenil 200mg bicm. * Shortness of breath - Duoneb 3ml tid prn. * Diabetes Mellitus II - Tradjenta 5mg daily. * Nutrition - MVI daily. * GERD - Pantoprazole 40MG daily, TUMS 500mg daily. Medications at Discharge Home Medications multivitamin 1 tab PO DAILY vitamin 05/20/19 blood-glucose meter (True Metrix Air Glucose Meter kit) #1 ea 02/03/20 calcium citrate 200 mg (950 mg) tablet 200 mg PO DAILY supplement 05/21/20 disability placard #1 ea 06/27/20 aspirin 81 mg tablet,delayed release (Adult Low Dose Aspirin) 81 mg PO DAILY h eart 08/13/20 blood sugar diagnostic (True Metrix Glucose Test Strip) #100 ea 07/17/21 lancets 33 gauge (BD Ultra Fine Lancets) 04/02/22 atorvastatin 80 mg tablet 80 mg PO QHS cholesterol #90 tabs 06/11/22 clopidogrel 75 mg tablet See Rx Instructions .Route .COMPLEX heart #90 TABLETS 08/20/22 hydroxychloroquine 200 mg tablet See Rx Instructions .Route .COMPLEX immunosuppressant #90 tabs 08/25/22 divalproex 250 mg tablet,delayed release 250 mg PO DAILY seizure #90 tabs 10/02/22 divalproex 500 mg tablet,delayed release (Depakote) 1,000 mg PO .COMPLEX seizures 10/03/22 denosumab 60 mg/mL subcutaneous syringe (Prolia) 60 mg subcut Q4ILKMML #1 mL 12/11/22 pantoprazole 40 mg tablet,delayed release 40 mg PO DAILY stomach #90 tabs 12/11/22 sitagliptin phosphate 100 mg tablet (Januvia) See Rx Instructions .Route .COMPLEX diabetes #90 tabs 12/22/22 acetaminophen 500 mg tablet 1,000 mg PO TID pain 01/11/23 duloxetine 30 mg capsule,delayed release (Cymbalta) 30 mg PO DAILY mood 01/11/23 metoprolol tartrate 25 mg tablet 25 mg PO BID 30 days #60 tabs 01/22/23 Hospital Course Operations - (CABG x 3.) Procedures None Summary of Care Provided Minutes Spent on Discharge: 35 Hospital Course: 72 year old female with below past medical history hospitalized for CABG x 3 01/01/2023, admitted to TCU with debility, here for rehabilitation, strengthening, prior to discharge home alone. 01/21/2023 Resident positive covid-19, treated with Remdesivir. Discharge home 01/26/2023, pending appeal, [facility] PT/OT/SN, Front wheeled walker, bedside commode. Physical Exam Const alert General Appearance: cooperative HEENT normocephalic Eyes PERRL and EOMs intact bilaterally Neck supple, no JVD and no carotid bruits Resp normal respiratory effort, normal air movement and clear to auscultation bilaterally Cardio regular rate and regular rhythm GI normal to inspection, nondistended, normoactive bowel sounds, non-tender and non-distended Extremity normal capillary refill General Extremity: Negative for edema Skin no rashes or lesions noted General Skin Exam: no breakdown Psych affect normal Appearance: appropriate Medical Records Data Medical Nutrition Assessment Dietitian: Malnutrition Criteria Met Start: 01/12/23 14:04 Freq: Status: Active Protocol: Document 01/19/23 15:52 SLA (Rec: 01/19/23 15:53 SLA Desktop) Nutrition Malnutrition Evidence of Malnutrition Exists Yes Malnutrition (severe): Acute Illness/Injury Evidenced By Suboptimal Energy Intake ( Severe),Weight Loss (Severe) Clinical Problem Acute Disease or Injury Related Malnutrition Etiology related to recent surgery and res with inadequate energy intake. Signs/Symptoms as evidenced by Wt loss of additional 1% since x 1 wk. Already with wt loss of 5.3% since CABG 01/01 and consuming <50% at most meals x 1 wk. Status Active Problem Recommendation Dietitian Recommendations/Changes Will liberalize diet to regular d/t s/s of malnutrition - POC gluc appear under control. Continue 4 oz glucerna shake 4x/day w/ medpass for increased nutrition if consumed Weight / BMI Weight Weight: 77.366 kg Body Mass Index (BMI) 31.1 ABG / Lab / Microbiology Data 01/22/23 05:40 01/22/23 05:40 Laboratory: Laboratory Results - last 24 hr 01/22/23 05:40: WBC 4.7, RBC 3.14 L, Hgb 9.9 L, Hct 30.3 L, MCV 96.5, MCH 31.5, MCHC 32.7, RDW Std Deviation 52.8 H, RDW Coeff of [place] 14.8 H, Plt Count 204, MPV 11.5, Sodium 140, Potassium 4.2, Chloride 109 H, Carbon Dioxide 25.0, Anion Gap 6, BUN 17, Creatinine 0.83, Estim Creat Clear Calc 49.88, Est GFR (MDRD) Af Amer 88, Est GFR (MDRD) Non-Af 72, BUN/Creatinine Ratio 20.5 H, Glucose 83, H emoglobin A1c 6.4 H, Calcium 8.5, Total Bilirubin 0.20, AST 26, ALT 28, Alkaline Phosphatase 102, Total Protein 6.4, Albumin 2.5 L, Globulin 3.9, Albumin/ Globulin Ratio 0.6 L Microbiology: Microbiology 01/21/23 05:14 Nasal Secretion SARS-CoV-2 Antigen (Rapid) - Final SARS-CoV-2 (COVID 19) 01/18/23 05:45 Nasal Secretion SARS-CoV-2 Antigen (Rapid) - Final 01/16/23 06:29 Nasal Secretion SARS-CoV-2 Antigen (Rapid) - Final 01/13/23 22:25 Nasal Secretion SARS-CoV-2 Antigen (Rapid) - Final D/C Instructions Discharge Diet: No restrictions Discharge Activity: Return to Normal Activity, May Shower and Use Walker Weight Bearing Status: Weight bearing as tolerated Call your doctor if you observe: Fever of 101 or Higher, Inability to urinate, Inability to have a bowel movement, Shortness of breath, Dizziness, Fainting spells, Swelling in the ankles, Chest pain and Uncontrolled pain Additional Instructions: Discharge home 01/26/2023, pending [facility] PT/OT/SN, Front wheeled walker, bedside commode. Please Follow Up With: kassy henriquez APRN When: As scheduled. Meaningful Use Info Meaningful Use Diagnoses (Choose all that apply): None applicable Discharge Plan Admission Admit Date/Time: 01/11/23 15:45 Primary Reason for Your Visit: Debility. Attending Provider: Robbin Carlos Chi Primary Care Provider: Kannan Garcia Instructions Additional Instructions / Restrictions: Discharge home 01/26/2023, pending [facility] Care PT/OT/SN, Front wheeled walker, bedside commode. Discharge Orders/Prescriptions Prescriptions: New metoprolol tartrate 25 mg Tablet 25 mg PO BID 30 Days Qty: 60 0RF Continued multivitamin Tablet 1 tab PO DAILY calcium citrate 200 mg (950 mg) tablet 200 mg PO DAILY aspirin [Adult Low Dose Aspirin] 81 mg tablet,delayed release (DR/EC) 81 mg PO DAILY divalproex [Depakote] 500 mg tablet,delayed release (DR/EC) 1,000 mg PO .COMPLEX Rx Instructions: Take 1,000mg by mouth 2 times daily . 1,000mg in am and 1,200mg in evening. divalproex 250 mg tablet,delayed release (DR/EC) 250 mg PO DAILY Qty: 90 1RF Rx Instructions: Take with 1000 mg Divalproex for a total evening dose of 1250 mg daily. pantoprazole 40 mg tablet,delayed release (DR/EC) 40 mg PO DAILY Qty: 90 0RF Rx Instructions: Take 30 minutes before breakfast duloxetine [Cymbalta] 30 mg capsule,delayed release(DR/EC) 30 mg PO DAILY acetaminophen 500 mg tablet 1,000 mg PO TID atorvastatin 80 mg tablet 80 mg PO QHS Qty: 90 3RF clopidogrel 75 mg tablet See Rx Instructions .ROUTE .COMPLEX Qty: 90 3RF Dose Instruction: TAKE 1 TABLET BY MOUTH EVERY DAY Rx Instructions: TAKE 1 TABLET BY MOUTH EVERY DAY hydroxychloroquine 200 mg tablet See Rx Instructions .ROUTE .COMPLEX Qty: 90 3RF Dose Instruction: TAKE 1 TABLET BY MOUTH TWICE DAILY WITH MEALS Rx Instructions: TAKE 1 TABLET BY MOUTH TWICE DAILY WITH MEALS Prolia 60 mg/mL syringe 60 mg subcut [id number] Qty: 1 2RF Januvia 100 mg tablet See Rx Instructions .ROUTE .COMPLEX Qty: 90 1RF Dose Instruction: TAKE 1 TABLET BY MOUTH DAILY Rx Instructions: TAKE 1 TABLET BY MOUTH DAILY Discontinued isosorbide mononitrate 60 mg Tablet Extended Release 24 Hr 60 mg PO DAILY 30 Days Qty: 30 0RF ipratropium-albuterol 0.5 mg-3 mg(2.5 mg base)/3 mL solution for nebulization 3 ml inhalation TID PRN (Reason: wheezing or SOB) metoprolol tartrate 50 mg tablet 50 mg PO BID oxycodone 5 mg tablet 5 mg PO Q6H PRN (Reason: pain) Rx Instructions: for moderate pain 4-6 polyethylene glycol 3350 [Miralax] 17 gram powder in packet 17 g PO DAILY losartan 50 mg tablet See Rx Instructions .ROUTE .COMPLEX Qty: 180 3RF Dose Instruction: TAKE 1 TABLET BY MOUTH TWICE DAILY Rx Instructions: TAKE 1 TABLET BY MOUTH TWICE DAILY carvedilol 12.5 mg tablet See Rx Instructions .ROUTE .COMPLEX Qty: 180 1RF Dose Instruction: TAKE 1 TABLET BY MOUTH TWICE DAILY Rx Instructions: TAKE 1 TABLET BY MOUTH TWICE DAILY No Action (DME) lancets [BD Ultra Fine Lancets] 33 gauge misc See Rx Instructions .Route Rx Instructions: As directed (DME) blood-glucose meter [True Metrix Air Glucose Meter] Kit See Rx Instructions .ROUTE .MEDSUPPLY Qty: 1 0RF Rx Instructions: As directed (DME) disability placard See Rx Instructions .ROUTE .MEDSUPPLY Qty: 1 0RF Rx Instructions: As directed, Length of time: 5 years (DME) True Metrix Glucose Test Strip Strip See Rx Instructions .ROUTE .MEDSUPPLY Qty: 100 3RF Rx Instructions: check twice a day and as needed Referrals / Follow Up: Kannan Garcia MD [Primary Care Provider] - (patient will make own appt) Disposition Disposition (needs filled in before D/C Order can be placed): Home Health Service
[2023-01-22] MEDS: Divalproex Sodium 250 MG Tablet PO (21:21)
[2023-01-22] MEDS: Atorvastatin Calcium 80 MG Tablet PO (21:21)
[2023-01-23] MEDS: Glucerna Shake 120 ML LIQUID PO ×4 (05:32→21:39)
[2023-01-23] MEDS: Acetaminophen 500 MG Tablet 1000 MG PO ×3 (05:33→21:40)
[2023-01-23 06:00] VITALS: BMI 31.3
[2023-01-23 06:17] VITALS: PULSE 84; RESP 16; O2SAT 97
[2023-01-23 08:28] VITALS: BP 135/85; PULSE 65
[2023-01-23] MEDS: Clopidogrel Bisulfate 75 MG Tablet PO (08:28)
[2023-01-23] MEDS: Metoprolol Tartrate 25 MG Tablet PO ×2 (08:28→21:58)
[2023-01-23] MEDS: Multivitamins,Therapeutic Tablet 1 TABLET PO (08:28)
[2023-01-23] MEDS: DULoxetine Hcl 30 MG Capsule PO (08:28)
[2023-01-23] MEDS: Calcium Carbonate 500 MG Tablet PO (08:28)
[2023-01-23] MEDS: Pantoprazole Sodium 40 MG Tablet PO (08:28)
[2023-01-23] MEDS: Aspirin E.C. 81 MG Tablet PO (08:28)
[2023-01-23] MEDS: Divalproex (ER) 500 MG Tablet 1000 MG PO ×2 (08:29→21:37)
[2023-01-23 09:55] VITALS: O2SAT 97
[2023-01-23] MEDS: Remdesivir 100 MG in 0.9% Normal Saline (250mL Bag) 230 ML 250 MG IV (09:59)
[2023-01-23 16:00] VITALS: BP 109/59; PULSE 80; RESP 15; TEMP 36.1; O2SAT 97
[2023-01-23] MEDS: Divalproex Sodium 250 MG Tablet PO (21:37)
[2023-01-23] MEDS: Atorvastatin Calcium 80 MG Tablet PO (21:40)
[2023-01-23 21:58] VITALS: BP 137/68; PULSE 92
[2023-01-24 06:00] VITALS: BMI 31.3
[2023-01-24] MEDS: Acetaminophen 500 MG Tablet 1000 MG PO ×3 (06:18→21:04)
[2023-01-24] MEDS: Glucerna Shake 120 ML LIQUID PO ×4 (06:19→21:10)
[2023-01-24 08:31] VITALS: O2SAT 98
[2023-01-24 10:00] VITALS: RESP 18
[2023-01-24 10:03] VITALS: PULSE 88
[2023-01-24] MEDS: Multivitamins,Therapeutic Tablet 1 TABLET PO (10:03)
[2023-01-24] MEDS: Pantoprazole Sodium 40 MG Tablet PO (10:03)
[2023-01-24] MEDS: Aspirin E.C. 81 MG Tablet PO (10:03)
[2023-01-24] MEDS: DULoxetine Hcl 30 MG Capsule PO (10:03)
[2023-01-24] MEDS: Calcium Carbonate 500 MG Tablet PO (10:03)
[2023-01-24] MEDS: Divalproex (ER) 500 MG Tablet 1000 MG PO ×2 (10:03→21:03)
[2023-01-24] MEDS: Metoprolol Tartrate 25 MG Tablet PO ×2 (10:03→21:11)
[2023-01-24] MEDS: Clopidogrel Bisulfate 75 MG Tablet PO (10:03)
[2023-01-24] MEDS: Polyethylene Glycol 3350 17 GM PACKET PO (10:04)
[2023-01-24 11:11] VITALS: BP 130/71; PULSE 88; RESP 17; TEMP 36.1; O2SAT 94
[2023-01-24] MEDS: Remdesivir 100 MG in 0.9% Normal Saline (250mL Bag) 230 ML 250 MG IV (11:19)
[2023-01-24] MEDS: Divalproex Sodium 250 MG Tablet PO (21:03)
[2023-01-24] MEDS: Atorvastatin Calcium 80 MG Tablet PO (21:04)
[2023-01-24 21:11] VITALS: BP 140/74; PULSE 82
[2023-01-25] MEDS: Acetaminophen 500 MG Tablet 1000 MG PO ×3 (06:19→21:44)
[2023-01-25] MEDS: Glucerna Shake 120 ML LIQUID PO ×3 (06:20→21:54)
[2023-01-25 06:57] VITALS: O2SAT 94
[2023-01-25] MEDS: Clopidogrel Bisulfate 75 MG Tablet PO (08:46)
[2023-01-25] MEDS: Aspirin E.C. 81 MG Tablet PO (08:46)
[2023-01-25] MEDS: Multivitamins,Therapeutic Tablet 1 TABLET PO (08:46)
[2023-01-25] MEDS: DULoxetine Hcl 30 MG Capsule PO (08:46)
[2023-01-25] MEDS: Pantoprazole Sodium 40 MG Tablet PO (08:46)
[2023-01-25] MEDS: Divalproex (ER) 500 MG Tablet 1000 MG PO ×2 (08:48→21:43)
[2023-01-25] MEDS: Calcium Carbonate 500 MG Tablet PO (08:51)
[2023-01-25 08:52] VITALS: PULSE 86
[2023-01-25] MEDS: Metoprolol Tartrate 25 MG Tablet PO ×2 (08:52→21:54)
[2023-01-25] MEDS: Remdesivir 100 MG in 0.9% Normal Saline (250mL Bag) 230 ML 250 MG IV (11:22)
[2023-01-25] MEDS: 0.9% Saline Lock 10 ML Syringe IV (11:22)
[2023-01-25 15:18] VITALS: BP 108/53; PULSE 85; RESP 16; TEMP 36.6; O2SAT 97
[2023-01-25] MEDS: Divalproex Sodium 250 MG Tablet PO (21:43)
[2023-01-25] MEDS: Atorvastatin Calcium 80 MG Tablet PO (21:44)
[2023-01-25 21:54] VITALS: BP 132/66; PULSE 91
[2023-01-26] MEDS: Acetaminophen 500 MG Tablet 1000 MG PO (06:03)
[2023-01-26] MEDS: Glucerna Shake 120 ML LIQUID PO (06:03)
[2023-01-26 06:06] LABS: Absolute Lymphocyte Count 1.96 X10^3/uL (0.83-4.51); Absolute Neutrophil Count 2.2 X10^3/uL (2.0-7.7); Basophil# 0.03 X10^3/uL; Basophil% 0.6 % (0-1); Eosinophil# 0.16 X10^3/uL; Eosinophils% 3.3 % (0-5); Hematocrit 30.9 % (37-47); Hemoglobin 9.9 g/dL (12.0-15.0); Lymphocyte # 1.96 X10^3/ul (0.83-4.51); Mean Corpuscular Hgb 30.8 pg (27.0-32.0); Mean Corpuscular Volume 96.3 fL (81-99); Mean Platelet Vol. 11.4 fl (6.2-12.0); Monocyte% 8.4 % (0-10); NRBC Flagged by Analyzer 0 % (0-5); Neutrophil # 2.21 X10^3/uL (2.7-7.7); Neutrophil % 46.3 % (47-70); Platelet Count 149 K/mm3 (150-450); RBC Distribution Width CV 14.6 % (11.6-14.6); RBC Distribution Width SD 51.8 fl (35.1-43.9); Red Blood Count 3.21 M/mm3 (4.2-5.4); White Blood Count 4.8 K/mm3 (4.4-11.0)
[2023-01-26 06:24] LABS: Anion Gap 5 (5-15); BUN 13 mg/dL (7-18); BUN/Creat Ratio 17.4 RATIO (10-20); Calcium,Total 8.5 mg/dL (8.5-10.1); Chloride 108 mmol/L (98-107); Creatinine, Serum 0.75 mg/dL (0.55-1.02); EST Glomerular Filtration Rate 82 mL/min (>60); Est Glom Filt Rate - Afr Amer 99 mL/min (>60); Glucose 85 mg/dL (74-106); Potassium 3.9 mmol/L (3.5-5.1); Sodium Level 140 mmol/L (136-145)
[2023-01-26 06:38] VITALS: O2SAT 96
[2023-01-26] MEDS: Polyethylene Glycol 3350 17 GM PACKET PO (09:56)
[2023-01-26] MEDS: DULoxetine Hcl 30 MG Capsule PO (09:57)
[2023-01-26] MEDS: Multivitamins,Therapeutic Tablet 1 TABLET PO (09:57)
[2023-01-26] MEDS: Divalproex (ER) 500 MG Tablet 1000 MG PO (09:57)
[2023-01-26] MEDS: Aspirin E.C. 81 MG Tablet PO (09:57)
[2023-01-26] MEDS: Pantoprazole Sodium 40 MG Tablet PO (09:58)
[2023-01-26] MEDS: Calcium Carbonate 500 MG Tablet PO (09:58)
[2023-01-26] MEDS: Clopidogrel Bisulfate 75 MG Tablet PO (09:58)
[2023-01-26 10:09] VITALS: BP 106/67; PULSE 72
[2023-01-26] MEDS: Metoprolol Tartrate 25 MG Tablet PO (10:09)
--- NOTE | 2023-01-26 10:32 | CASEMGMT ---
Social Work BIMS and PHQ-9 completed for MDS assessment. Arlette Turner, RN CARDIAC REHAB TOWER HAND
[2023-01-26 11:20] VITALS: O2SAT 96
[2023-01-26 11:37] VITALS: BP 107/67; PULSE 86; RESP 18; TEMP 36.8; O2SAT 98
== END 2023-01-26 11:15 | disposition home health service (06) | DRG 949 ==
PROVIDERS: Admitting Provider Family Medicine Geriatric Medicine; PCP Internal Medicine; Visit Provider Family Medicine Geriatric Medicine
DX: Z48.812 Encounter for surgical aftercare following surgery on the circulatory system (principal); U07.1 COVID-19; I50.32 Chronic diastolic (congestive) heart failure; I11.0 Hypertensive heart disease with heart failure; E11.9 Type 2 diabetes mellitus without complications; G40.909 Epilepsy, unspecified, not intractable, without status epilepticus; M06.9 Rheumatoid arthritis, unspecified; F32.A Depression, unspecified; I25.10 Atherosclerotic heart disease of native coronary artery without angina pectoris; K21.9 Gastro-esophageal reflux disease without esophagitis; E78.00 Pure hypercholesterolemia, unspecified; Z95.1 Presence of aortocoronary bypass graft; Z79.899 Other long term (current) drug therapy; Z79.82 Long term (current) use of aspirin; Z79.02 Long term (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 of antithrombotics/antiplatelets; M81.0 Age-related osteoporosis without current pathological fracture; Z23 Encounter for immunization
CPT/HCPCS: 36415; 80048; 80053; 82962; 83036; 84075; 85014; 85018; 85025; 85027; 87811; 90677; 92507; 92523; 97110; 97116; 97129; 97130; 97162; 97166; 97530; 97535; 97802; G0009; J7050; A4216; J0248

== ENCOUNTER → 2023-02-04 | Outpatient (CLI) | payer MEDICARE, SELFPAY ==
[2023-02-02 11:35] VITALS: BMI 32.7
[2023-02-04 18:10] LABS: Vitamin B12 262 pg/mL (211-911)
[2023-02-04 19:35] LABS: Ferritin 364 ng/mL (8-252); Iron 41 ug/dL (50-170); Iron Binding Capacity,Total 217 ug/dL (250-450)
== END | disposition home or self-care (01) ==
LOC: BIMLAB 11:51
PROVIDERS: PCP Internal Medicine; Referring Provider Internal Medicine; Visit Provider Internal Medicine
DX: D64.9 Anemia, unspecified (principal)
CPT/HCPCS: 36415; 82607; 82728; 82746; 83540; 83550

== ENCOUNTER → 2023-02-18 | Outpatient (CLI) | payer MEDICARE, SELFPAY ==
[2023-02-02 11:35] VITALS: BMI 32.7
--- NOTE | 2023-02-18 11:27 | RAD_ITS ---
STUDY: X-RAY CHEST REASON FOR EXAM: Female, 72 years old. cough, SOB, -- recent CABG TECHNIQUE: PA and lateral views of the chest. COMPARISON: 12/18/2022 FINDINGS: Interval median sternotomy. The lungs are clear and expanded. Small left pleural effusion. Tiny right pleural effusion. Normal size heart. Normal mediastinum and allie. Normal visualized pulmonary arteries. Normal visualized aortic arch and descending thoracic aorta. Normal visualized thoracic spine. Normal visualized ribs, clavicles, and shoulders. There is no demonstrated abnormality of the visualized soft tissue structures of the upper abdomen. RAD/Chest PA and Lateral IMPRESSION: Bilateral pleural effusions. Electronically Signed: Gold Young MD at 23:11 EDT ,
[2023-02-18 12:18] LABS: Absolute Lymphocyte Count 1.35 X10^3/uL (0.83-4.51); Absolute Neutrophil Count 3.4 X10^3/uL (2.0-7.7); Basophil# 0.02 X10^3/uL; Basophil% 0.4 % (0-1); Eosinophil# 0.35 X10^3/uL; Eosinophils% 6.3 % (0-5); Hematocrit 35.5 % (37-47); Hemoglobin 11.2 g/dL (12.0-15.0); Lymphocyte # 1.35 X10^3/ul (0.83-4.51); Lymphocyte % 24.1 % (19-41); Mean Corp Hgb Conc 31.5 g/dL (32-36); Mean Corpuscular Hgb 30.5 pg (27.0-32.0); Mean Corpuscular Volume 96.7 fL (81-99); Mean Platelet Vol. 10.9 fl (6.2-12.0); Monocyte# 0.46 X10^3/uL; Monocyte% 8.2 % (0-10); NRBC Flagged by Analyzer 0 % (0-5); Neutrophil # 3.41 X10^3/uL (2.7-7.7); Neutrophil % 60.8 % (47-70); Platelet Count 251 K/mm3 (150-450); RBC Distribution Width CV 14.6 % (11.6-14.6); RBC Distribution Width SD 52.1 fl (35.1-43.9); Red Blood Count 3.67 M/mm3 (4.2-5.4); White Blood Count 5.6 K/mm3 (4.4-11.0)
[2023-02-18 12:42] LABS: Valproic Acid (Depakene) Level 103 ug/mL (50-100)
[2023-02-18 12:53] LABS: BNP,B-Type NATRIURETIC PEPTIDE 26.8 pg/mL (0-100)
[2023-02-18 13:28] LABS: ALB/GLOB Ratio 0.5 RATIO (0.9-2.4); AST(SGOT) 11 U/L (15-37); Alanine Aminotransfer ALT/SGPT 13 U/L (13-56); Albumin, Serum 2.6 g/dL (3.2-5.0); Alkaline Phosphatase 79 U/L (45-117); Anion Gap 9 (5-15); BUN 14 mg/dL (7-18); BUN/Creat Ratio 17.6 RATIO (10-20); Calcium,Total 8.7 mg/dL (8.5-10.1); Chloride 108 mmol/L (98-107); EST Glomerular Filtration Rate 76 mL/min (>60); Est Glom Filt Rate - Afr Amer 92 mL/min (>60); Globulin 4.8 g/dL (2.2-4.2); Glucose 96 mg/dL (74-106); Potassium 3.6 mmol/L (3.5-5.1); Protein, Total 7.4 g/dL (6.4-8.2); Sodium Level 141 mmol/L (136-145); T4 Free Direct 1.01 ng/dL (0.76-1.46); Thyroid Stim Hormone (TSH) 3.45 uIU/mL (0.358-3.74)
[2023-02-21 16:08] LABS: Vitamin B1, Thiamine 106.4 nmol/L (66.5-200.0)
== END | disposition home or self-care (01) ==
LOC: RAD 11:20
PROVIDERS: Psychiatry & Neurology Neurology; PCP Internal Medicine; Referring Provider Nurse Practitioner Family; Visit Provider Nurse Practitioner Family
DX: G40.909 Epilepsy, unspecified, not intractable, without status epilepticus (principal); I50.32 Chronic diastolic (congestive) heart failure; I11.0 Hypertensive heart disease with heart failure; E78.00 Pure hypercholesterolemia, unspecified; R53.83 Other fatigue; Z95.1 Presence of aortocoronary bypass graft; R00.0 Tachycardia, unspecified; R06.09 Other forms of dyspnea
CPT/HCPCS: 36415; 71046; 80053; 80164; 82140; 83880; 84425; 84439; 84443; 85025

== ENCOUNTER → 2023-03-30 | Outpatient (CLI) | payer MEDICARE, SELFPAY ==
[2023-02-02 11:35] VITALS: BMI 32.7
--- NOTE | 2023-03-30 10:18 | RAD_ITS ---
STUDY: X-RAY CHEST REASON FOR EXAM: Female, 72 years old. Shortness of breath. Evaluate pleural effusions. TECHNIQUE: Frontal and lateral views of the chest. COMPARISON: February 18, 2023. FINDINGS: Stable cardiomegaly, sternotomy wires, aortic tortuosity with calcification, mild hyperinflation and bilateral pleural effusions, left greater than right. Diffuse thoracic and lumbar spondylosis unchanged. No abnormality of the visualized soft tissue structures of the upper abdomen. RAD/Chest PA and Lateral IMPRESSION: Stable chest with effusions, left greater than right. No acute superimposed finding. Electronically Signed: Shubham Osorio MD at 12:15 EST ,
== END | disposition home or self-care (01) ==
LOC: RAD 10:13
PROVIDERS: PCP Internal Medicine; Referring Provider Nurse Practitioner Family; Visit Provider Nurse Practitioner Family
DX: R06.09 Other forms of dyspnea (principal)
CPT/HCPCS: 71046

== ENCOUNTER → 2023-05-25 | Outpatient (CLI) | payer MEDICARE, SELFPAY ==
[2023-02-02 11:35] VITALS: BMI 32.7
--- NOTE | 2023-05-25 12:46 | BI_ITS ---
MAMMOGRAPHY - BILATERAL SCREENING REASON FOR EXAM: Female, 72 years old. Routine annual screening examination. PERTINENT HISTORY: Non-contributory. TECHNIQUE: Digital bilateral breast paul (3D mammographic acquisition) in the CC and MLO projections. 2-D mediolateral oblique (MLO) and craniocaudad (CC) views of both breasts were obtained. CAD: Full Field Digital Mammography with Computer Added Detection was performed. COMPARISON: Comparison is made with prior study December 12, 2021 and October 05, 2020. FINDINGS: Breast Composition: The breasts are almost entirely fatty. There are no dominant masses or suspicious calcifications. Stable bilateral calcified breast nodules. Stable small bilateral axillary lymph nodes. No other significant abnormalities are identified. There has been no significant change since the prior study. BI/SCRN MAMM (CAD)W/PAUL BILAT IMPRESSION: Stable bilateral screening mammogram. Yearly follow-up mammogram recommended. (A) ASSESSMENT CATEGORY: BIRADS Category 2: Benign. A letter regarding these results will be sent to the patient by the facility within 30 days. Approximately 10% of breast cancers are not detected by mammography. A normal mammogram should not delay biopsy of a clinically suspicious abnormality. [id number] Electronically Signed: Tor Artis MD at 15:14 EST ,
== END | disposition home or self-care (01) ==
LOC: OPBI 12:46
PROVIDERS: PCP Internal Medicine; Referring Provider Internal Medicine; Visit Provider Internal Medicine
DX: Z12.31 Encounter for screening mammogram for malignant neoplasm of breast (principal)
CPT/HCPCS: 77063; 77067

== ENCOUNTER → 2023-06-01 | Outpatient (CLI) | payer MEDICARE, SELFPAY ==
[2023-02-02 11:35] VITALS: BMI 32.7
--- NOTE | 2023-06-01 09:30 | CR.HP_ITS ---
CR - History & Physical General Arrival date:: 06/01/23 Arrival time:: 09:30 Date of Referral:: 05/20/23 Date of CR Evaluation:: 06/01/23 Referring Physician: Dr. Winston Johnson Primary Diagnosis: CABG History of Present Cardiac Event Onset Date Coronary Artery Bypass Graft:: Yes Vessel: onset 12/14/22 Medications Ambulatory Orders Medication Instructions Recorded multivitamin 1 tab PO DAILY vitamin 05/20/19 blood-glucose meter (True Metrix #1 ea 02/03/20 Air Glucose Meter kit) calcium citrate 200 mg (950 mg) 200 mg PO DAILY supplement 05/21/20 tablet disability placard #1 ea 06/27/20 aspirin 81 mg tablet,delayed 81 mg PO DAILY heart 08/13/20 release (Adult Low Dose Aspirin) blood sugar diagnostic (True #100 ea 07/17/21 Metrix Glucose Test Strip) lancets 33 gauge (BD Ultra Fine 04/02/22 Lancets) atorvastatin 80 mg tablet 80 mg PO QHS cholesterol #90 tabs 06/11/22 clopidogrel 75 mg tablet See Rx Instructions .Route 08/20/22 .COMPLEX heart #90 TABLETS hydroxychloroquine 200 mg tablet See Rx Instructions .Route 08/25/22 .COMPLEX immunosuppressant #90 tabs denosumab 60 mg/mL subcutaneous 60 mg subcut [id number] #1 mL 12/11/22 syringe (Prolia) pantoprazole 40 mg tablet,delayed 40 mg PO DAILY stomach #90 tabs 12/11/22 release sitagliptin phosphate 100 mg See Rx Instructions .Route 12/22/22 tablet (Januvia) .COMPLEX diabetes #90 tabs metoprolol tartrate 25 mg tablet 25 mg PO BID 30 days #60 tabs 01/22/23 divalproex 250 mg tablet,delayed 250 mg PO QPM seizure #90 tabs 02/11/23 release divalproex 500 mg tablet,delayed 500 mg .Route .COMPLEX seizures 02/11/23 release (Depakote) #90 tabs Allergies Allergies prednisone Adverse Reaction (Severe, Verified 05/20/23 08:57) Hives Sleep Disorder Evaluation Hx of Sleep Apnea: Yes Do you snore loudly (louder than talking or can be heard through closed doors)?: No Do you often feel tired/ fatigued/ sleepy during daytime?: Yes Has anyone observed you stop breathing during sleep?: No History of Hypertension (for STOP score): Yes STOP Results: Positive Advanced Directives Advanced Directives Power of Printing Supplies Sales Representative: Yes Living Will: Yes Advance Directives Information Provided: No Advance Directives on File: No DNR Order?:: No Past Medical History Covid-19 Screening Physicial Symptoms Other Clinical Concerns Exposure Risk Pertinent Comorbidities 65 years or older:: Yes Has a serious heart condition:: Yes Diabetic:: Yes Past Medical Illness Medical History Abdominal pain Acute back pain Anemia Arthritis Atherosclerotic heart disease of [place] coronary artery without angina pectoris Cardiology follow-up encounter Cervical radiculopathy Chronic diastolic CHF (congestive heart failure) Colon cancer screening Compression fracture of lumbar spine, non-traumatic Congestive heart failure (CHF) Conversion disorder Cough CPAP (continuous positive airway pressure) dependence Diabetes Diabetes mellitus type 2 in nonobese Diabetes type 2, controlled Dysuria Dysuria Essential (primary) hypertension Fatigue Flu vaccine need Foreign body in stomach GERD (gastroesophageal reflux disease) Health care maintenance History of coronary artery disease History of hypertension Hives Hyperglycemia due to type 2 diabetes mellitus Hyperlipidemia Left ankle pain Left shoulder pain Lower extremity edema Memory changes Non-smoker Non-toxic goiter Obesity Obstructive sleep apnea Osteoarthritis Osteoporosis Personal history of colonic polyps Rheumatoid arthritis RIGHT FOOT HEEL SPUR Right groin pain Right hip pain Right shoulder pain Routine health maintenance Seasonal allergies Seizure disorder Shortness of breath on exertion Sleep apnea Therapeutic drug monitoring Type 2 diabetes mellitus Urinary frequency Urinary frequency Wears glasses Past Surgical History Surgical History H/O: hysterectomy History of cardiac catheterization History of carpal tunnel surgery History of section History of coronary artery bypass graft History of coronary artery bypass graft x 3 History of coronary artery stent placement (03/22/18) History of left heart catheterization (09/20/18) Surgical History: angioplasty, hysterectomy and - Family History Summary Family History Grandmother Alcoholism Cancer Arthritis Mother Alcoholism Diabetes blood clots Hypertension Grandfather Heart disease Sister Thyroid disorder Other Breast cancer Cervical cancer Colon cancer Social History Smoking History Smoking Status: Never smoker Alcohol Use Alcohol Usage: Yes (socially) Substance Abuse Hx Substance Use: No Occupation Occupation (List type of work in comments):: Retired Hobbies, Recreation, Social Activities Hobbies: Other (catholic, taking care of people) Recreational Activities: I am able to engage in all my recreational activities Social Environment Status Marital Status: Single Current Living Arrangements Living Environment:: Family Children How many children do you have?: 2 Do any of your children live nearby?: Yes Safety Do you feel safe in your surroundings?: Yes Assistance Do you need any assistance at home?: no Review of Systems Review of Systems Hints Review of Present Symptoms: Reports Shortness of Breath at Rest, Shortness of Breath with Exertion, Operative Discomfort, Angina and Fatigue; Denies Wound Hea ling, Dizziness/Lightheadedness, Heart Arrhythmia/Irregularities, Appetite - Normal, Appetite - Special Diet, Sleep - Normal or Sexual Changes Pain Is Patient Pain Free?: Yes Risk Factor Assessment Chief Complaint Chief Complaint: CABG Vital Signs Pulse Ox: 97 Blood Pressure: 104/64 Pulse Pulse Rate: 101 Hypertension How long have you been treated?: 10 years Blood Pressure Sitting - Left Arm: 104/64 Stress Stress: Recent (wants to work) Diabetes Diabetic History: Type II Nutrition Referral for Diabetes: Yes Obesity Height: 5 ft 2 in Weight:: 163 lb Weight in Pounds: 163.0 lbs Body Mass Index (BMI): 29.8 Physical Inactivity Physical Inactivity: Reg Exercise 30 min/day Risk Stratification Risk Guidelines: Lowest Risk: Risk Factor for Smoking, Moderate Risk: Risk Factor for Diabetes, Risk Factor for Sedentary Lifestyle and Risk Factor for Depression and Highest Risk: Risk Factor for Dyslipidemia, Risk Factor for Diabetes, Risk Factor for Obesity and Risk Factor for Hypertension For Smoking Smoking Risk Guidelines For Dyslipidemia Dyslipidemia Risk Guidelines For Diabetes Mellitus Diabetes Risk Guidelines For Obesity/Overweight Obesity/Overweight Risk Guidelines For Hypertension Hypertension Risk Guidelines For Sedentary Lifestyle Sedentary Lifestyle Risk Guidelines For Depression Depression Risk Guidelines Family History Family History Grandmother Alcoholism Cancer Arthritis Mother Alcoholism Diabetes blood clots Hypertension Grandfather Heart disease Sister Thyroid disorder Other Breast cancer Cervical cancer Colon cancer Motivation Motivation to Participate On a scale of 1 to 10, how prepared are you to commit to attending program?: 10 What do you see as barriers to successfully being able to complete the program?: nothing What do you see as the benefits of succesfully completing the program? In other words, what do you hope to get out of participating in the program?: more energy, learn how to take care of herself Are there issues you are dealing with that will interfere with completing the program?: no Do you have a spouse or signficant other, family or friends who will help support you to complete the program?: yes
--- NOTE | 2023-06-01 09:40 | PCM.CR.ITP ---
Diagnosis General Information Admitting Diagnosis: CABG Personal Learning Style:: Audio/Visual Gave educational material for:: Treating Heart Disease, How The Heart Works, What it means to have Heart Disease, How Coronary Artery Disease is Diagnosed, Heart Procedures, What Heart Medications Do, Risk Factors & Modifications, Living an Active Life, Nutrition, Emotions & Heart Disease, Stress Management & Relaxation and Sleep Disorders & Heart Disease Education/Goals Cardiac Rehabilitation Goals Personal Goals: Initial Assessment: Improve energy level, Get back to work, or to resume activities faster, Improve knowledge of cardiac disease, Improve muscle strength and endurance and Improve diet and eating habits (eat healthier) Scale for measuring improvement of personal goals Diagnosis & Disease Process Outcomes/Goals: Pt IDs own risk factors & lifestyle modifications by Session 10, Verbalizes symptoms of angina & response by session 3., Pt independently manages and Other Additional Outcomes/Goals: Plan/Interventions: Assist Pt to ID & engage in lifestyle modification to reduce CVD risk, Instruct on individual risk factors, Review symptoms of angina & emergency actions, Review secondary diagnosis & identify educational needs. and Other see comment 30 day Reassessments:: Not Met 30 day Reassessments:: Not Met 30 day Reassessments:: Not Met 30 day Reassessments:: Not Met Final Reassessments:: Not Met Safety Referral to Physical Therapy: No Referral to [facility] Case Management: No Fall Risk Assessed:: Yes Assistive Devices:: None Exercise - Initial Assessment Visit Date of Eval: 06/01/23 (initial eval ) Mets: Pre-: >3 METS for 30 minutes by discharge, >5 METS for 30 minutes by discharge, >7 METS for 30 minutes by discharge and Unable to meet goal due to: (see comment below) Physician Prescribed Exercise Modalities: Treadmill, Rower, Airdyne, NuStep, SciFit and Lateral [employer] Frequency: 2x/week for 18 weeks [36 sessions] and 3x/week for 12 weeks [36 sessions] Intensity: 60-80% of age predicted maximum heart rate reserve Duration: 30 - 45 minutes Current METSs:: 3 Target Heart Rate:: 90-105 Resting Blood Pressure: 104/64 EKG Type: SR with nonspecific T abnormality Outcomes & Goals Goals:: Verbalizes understanding of THR, RPE & goal METS by session 6, Documents in home exercise log/reports 30 min aerobic 5 day/wk by DC, Demonstrates accurate pulse taking by DC and Other additional outcome/goals: see below Intervention & Plan Exercise Program Goals: Instruct on personal THR & RPE, Instruct on MET level & personal MET goal, Show patient to take own pulse /validate performance until accurate, Instruct on home exercise and Other additional plan/int Physical Activity Home Exercise Physical Activity - Home Exercise: Safe Exercise, Warm-up, Self-monitoring, Cool-Down, Home Exercise > 30 min Daily and Sitting Time <3 hours/daily Outcomes & Goals Outcomes/Goals: Demonstrates correct Warm-up/exercise Cool-Down (S3) if = 2.5 METs, Verbalizes symptoms of exercise intolerance by Session 3 (S3), Demonstrate safe equipment use (S3) & follows exercise prescrition (6) and Other: See below Intervention & Plan Plan/Intervention: Instruct warm-up & cool-down if exercising at > 2 METs, Instruct on symptoms of exercise intolerance & actions to take, Instruct & monitor on saf, Assess intial functional capacity & safety risk and Other See below Nutrition - Initial Assessment Program Goals Nutrition Program Goals Patient has diagnosis of Hyperlipidemia (ICD E78)?: Yes Visit Date of Eval: 06/01/23 (initial eval ) Cholesterol/Lipids (Other Core Measures) Determine presence & major risk factors that modify LDL goal: Cigarette smoking, Hypertension or hypertensive medication, Low HDL cholesterol <40 mg/dL*, Family history of premature CHD in Male < 55 years: female <65 yearsFa and Age men > 45 years; women >/= 55 years Outcomes/Goals: Pt IDs own risk factors & lifestyle modifications by Session 10, Verbalizes symptoms of angina & response by session 3., Pt independently manages and Other Additional Outcomes/Goals: Intervention/Plan: Advocate for lipid panel cholesterol medication if applicable, Instruct on personal lipid levels & lipid goals/NCEP guidelines, Instruct on cholesterol and Other additional plan/int Referral to dietitian:: No Diabetes (Other Core Measures) Diabetes Type: Diagnosis Type II ICD-10 E11 Insulin dependent injection/pump?: No Non-Insulin Dependent?: Yes Do you monitor your blood sugar at home?: Yes Referral to Diabetic Clinic:: Yes Outcomes/Goals:: Able to state symptoms of, Able to state, Able to state and Other additional Intervention/Plan:: Instruct on, Refer to, Instruct on and Other Weight Mgt (Other Care) Height: 5 ft 2 in Weight:: 163 lb BMI: 29.8 Diagnosis Overweight/Obesity BMI> 30% ICD-10 E66: No Diagnosis High BMI/Morbid Obesity BMI> 35% ICD-10 Z68: No Outcomes/Goals: Pt sets, maintains & shows weight loss goal & trend during rehab and Other additional outcomes/goals Intervention/Plan: Instruct on ideal BMI & set weight loss goal w/patient, Assist pt to ID & incorporate diet changes for weight loss by S9, Refer to Structured Weight Loss program as appropriate, Encourage goal of using 250-300dcal per session for weight loss and Other additional plan/interventions Healthy Eating Habits Will attend diet classes:: Yes Outcomes/Goals:: Consume diet rich in vegs,fruits,whole grain/high fiber,fish,lean meat, Limit sat/trans fats,cholesterol & added salts & sugars and Other additional outcome/goals: Intervention/Plan:: Assess current eating habits and Other Additional plan/interventions Education Gave educational materials for:: Signs & symptoms of hypoglycemia, Signs & symptoms of hyperglycemia, Relate diabetes to coronary artery disease and Healthy eating Core - Initial Assessment Visit Date of Eval: 06/01/23 (initial eval ) Medication Compliance Preventative Medication(s):: Aspirin, Clopidogrel/P2Y12 inhibit, Statin/lipid and Beta teri H/O mental health issues: depression, anxiety, or addiction?: No Doesn?t believe in the benefits of treatment?: No Believes medications are unnecessary or harmful?: No Has a concern about medication side effects?: No Expresses concern over the cost of medications?: No Outcomes/Goals: Verbalizes medications,desired effect & common side effects @ DC, Pt self-reports following medication regimen, Keeps card in wallet w/medications listed by DC and Other additional outcome/goals: Interventions/plans: Instruct on medication effects & side effects, Review medication list w/patient every two weeks, Instruct importance of taking meds as ordered & assist problem solving and Other additional Tobacco Use Tobacco Use: Non-smoker Hypertension Hypertension Diagnosis:: Hypertension ICD-10 I10 Resting Blood Pressure:: 104/64 [place] [employer] Hypertension Guidelines Outcomes/Goals: Able to verbalize/achieve optimal blood pressure <130/80, Incorporates diet changes & exercise for blood pressure control by DC and Other additional outcomes/goals Interventions/plan: Instruct on optimal blood pressure, hypertension & medications, Instruct on effects of sodium, alcohol, stress, exercise &hypertension and Other additional plan/interventions Tobacco Cessation Referral Smoking Cessation Referral:: No Individual Education/Counseling:: No Education Schedule Given:: Yes Psychosocial - Initial Assess VIsit Date of Eval: 06/01/23 (initial eval ) History of previous Mental disease:: No Target Goals Target Goals Outcomes/Goals: See list Psychosocial Outcomes/Goals:: ID's personal stressors & 2 strategies to manage stress by discharge and Other Additional outcome/goals: Intervention/Plan: See List Interventions/Plan:: Assess stressors,coping strategies & signs of derpression on admission, Instruct/assist pt to develop coping & personal stress Mgt strategies, Refer to Behavioral Health if appropriate, Refer to Physician if appropriate, Instruct patient to recognize signs & symptoms of depression, Instruct patient to recog and Other additional plan/intervention Patient Health Questionnaire PHQ-9 Screening Initial Assessment: 1. Little interest or pleasure in doing things: More than half the days 2. Feeling down, depressed, or hopeless: Not at all 3. Trouble falling or staying asleep, or sleeping too much: Nearly every day 4. Feeling tired or having little energy: More than half the days 5. Poor appetite or overeating: Nearly every day 6. Feeling bad about yourself -- or that you are a failure or have let yourself or your family down: Not at all 7. Trouble concentrating on things, such as reading the newspaper or watching television: Not at all 8. Moving or speaking so slowly that other people could have noticed. Or the opposite - being so fidgety or restless that you have been moving around a lot more than usual: Not at all 9. Thoughts that you would be better off , or of hurting yourself in some way: Not at all How difficult have these problems made it for you to do your work, take care of things at home, or get along with other people?: Somewhat difficult Total Score: 10 JOAQUIN-Q SV Test Statements CAD is a disease of the arteries in the heart: I Don't Know Examples of risk factors for heart disease: False Angina is chest pain or discomfort: I Don't Know The benefits of resistance training include: True Eating more meat and dairy products: False Anti-platelet medications such as aspirin are important: True The only effective way to manage stress: False An exercise warm-up slowly increases heart rate: I Don't Know Prepared, processed foods usually have high sodium: True Depression is common after a heart attack: False The statin medications lower cholesterol: True To control blood pressure, lower the amount of sodium: I Don't Know If someone gets chest discomfort during walking: False Transfats are partially hydrogenated vegetable oils: True Sleep apnea that is not treated increases the risk: I Don't Know To control cholesterol, one should become a vegetarian: False Someone knows if he/she is exercising at the right level: I Don't Know Diabetes cannot be prevented with exercise & health eating: I Don't Know Stress is a large risk for heart attack: True A diet that can help lower blood pressure is rich in: True Total Score Total Correct Responses: 11 Self-Efficacy 6-Item Scale Initial Assessment: We would like to know how confident you are in doing certain activities. Please select your confidence level for: Fatigue Select Number: 4 Physical Discomfort or Pain Select Number: 4 Emotional Distress Select Number: 6 Other Symptoms or Health Problems Select Number: 6 Different Tasks and Activities Select Number: 10 Medication Select Number: 7 Total Score:: 6 Nutrition Survey Nutrition Survey Instructions Scoring Instructions Nutrition Survey Initial: Have you lost >10 lbs over the past 2 months without trying?: No Are you following a special diet at home for diabetes, low fat, or low salt?: No Are you interested in meeting with a dietitian for help understanding your diet?: Yes Do you eat less than 3 meals a day?: Yes Do you eat fatty meats (rod, sausage, ribs, etc), fried foods, desserts, large amounts of salad dressings, margarine, butter, or cheese most days?: Yes Do you have food allergies? [Enter types in comment field]: No Do you eat in restaurants more than 3 times a week?: No Do you season food with salt, seasoning salt, or garlic salt?: Yes Do you used canned, boxed, frozen meals, or soups, seasoning packets?: No Total Score:: 4 Exercise - Final/Discharge Physician Prescribed Exercise Modalities: Treadmill, Rower, Airdyne, NuStep, SciFit and Lateral [place] Frequency: 2x/week for 18 weeks [36 sessions] and 3x/week for 12 weeks [36 sessions] Intensity: 60-80% of age predicted maximum heart rate reserve Current METSs:: 3 Target Heart Rate:: 90-105 Nutrition - 30-Day Assessment Weight Mgt (Other Care) Height: 5 ft 2 in Weight:: 163 lb BMI: 29.8 Nutrition - 60-Day Assessment Weight Mgt (Other Care) Height: 5 ft 2 in Weight:: 163 lb BMI: 29.8 Core - Final Assessment Hypertension Resting Blood Pressure:: 104/64 [place] [employer] Hypertension Guidelines Core - 60-Day Assessment Hypertension Resting Blood Pressure:: 104/64 [place] [employer] Hypertension Guidelines Psychosocial - 30-Day Assess Target Goals Target Goals Psychosocial - 60-Day Assess Target Goals Target Goals Psychosocial - 90-Day Assess Target Goals Target Goals Psychosocial - Final Assessmen Target Goals Target Goals Nutrition - 90-Day Assessment Weight Mgt (Other Care) Height: 5 ft 2 in Weight:: 163 lb BMI: 29.8 Nutrition - Final Assessment Program Goals Patient has diagnosis of Hyperlipidemia (ICD E78)?: Yes Weight Mgt (Other Care) Height: 5 ft 2 in Weight:: 163 lb BMI: 29.8
[2023-06-01 09:57] VITALS: PULSE 101; O2SAT 97
[2023-06-01 10:05] VITALS: BP 104/64; BMI 29.8
[2023-06-01 10:29] VITALS: BMI 29.8
[2023-06-01 10:32] VITALS: BP 104/64
== END | disposition home or self-care (01) ==
LOC: CR 08:52
PROVIDERS: PCP Internal Medicine; Visit Provider Internal Medicine Cardiovascular Disease
DX: E11.9 Type 2 diabetes mellitus without complications (principal)

== ENCOUNTER → 2023-06-17 | Outpatient (CLI) | payer MEDICARE, SELFPAY ==
[2023-06-01 10:29] VITALS: BMI 29.8
[2023-06-17 12:31] LABS: Absolute Lymphocyte Count 0.86 X10^3/uL (0.83-4.51); Basophil# 0.02 X10^3/uL; Basophil% 0.6 % (0-1); Eosinophil# 0.09 X10^3/uL; Eosinophils% 2.8 % (0-5); Hematocrit 38.8 % (37-47); Hemoglobin 12.2 g/dL (12.0-15.0); Lymphocyte # 0.86 X10^3/ul (0.83-4.51); Lymphocyte % 27.2 % (19-41); Mean Corp Hgb Conc 31.4 g/dL (32-36); Mean Corpuscular Hgb 31.1 pg (27.0-32.0); Mean Platelet Vol. 11.2 fl (6.2-12.0); Monocyte# 0.19 X10^3/uL; NRBC Flagged by Analyzer 0 % (0-5); Neutrophil # 1.99 X10^3/uL (2.7-7.7); Neutrophil % 63.1 % (47-70); Platelet Count 184 K/mm3 (150-450); RBC Distribution Width CV 14.3 % (11.6-14.6); RBC Distribution Width SD 52.5 fl (35.1-43.9); Red Blood Count 3.92 M/mm3 (4.2-5.4); White Blood Count 3.2 K/mm3 (4.4-11.0)
[2023-06-17 12:57] LABS: Anion Gap 4 (5-15); BUN 23 mg/dL (7-18); BUN/Creat Ratio 27.6 RATIO (10-20); Calcium,Total 8.5 mg/dL (8.5-10.1); Chloride 112 mmol/L (98-107); Creatinine, Serum 0.83 mg/dL (0.55-1.02); EST Glomerular Filtration Rate 72 mL/min (>60); Est Glom Filt Rate - Afr Amer 87 mL/min (>60); Glucose 138 mg/dL (74-106); Potassium 4.1 mmol/L (3.5-5.1); Sodium Level 142 mmol/L (136-145)
[2023-06-17 13:01] LABS: Hemoglobin A1c 6.3 % (3.8-5.6)
== END | disposition home or self-care (01) ==
LOC: BIMLAB 10:44
PROVIDERS: PCP Internal Medicine; Referring Provider Internal Medicine; Visit Provider Internal Medicine
DX: E11.9 Type 2 diabetes mellitus without complications (principal)
CPT/HCPCS: 36415; 80048; 83036; 85025

== ENCOUNTER → 2023-06-25 | Outpatient (CLI) | payer MEDICARE, SELFPAY ==
[2023-06-01 10:29] VITALS: BMI 29.8
--- OUTSIDE RECORDS SUMMARY | 2023-06-25 20:15 | XMS RPT_ITS | CCD ---
Author Name Unknown Address [address] [place] [address] Organization [facility] Care Team Providers Care Nuclear Supervising Operator Name Role Phone NIKITA YAO Unavailable Unavailable SHAD BRISENO Unavailable Unavailable NIKITA YAO Unavailable Unavailable IMCA Unavailable Unavailable NIKITA YAO Unavailable Unavailable [facility] Unavailable Unavailable ANTHONY FINLEY Referring Unavailable ANTHONY FINLEY Attending Unavailable FINLEY, ANTHONY Referring Unavailable PETERSON, TILA (PT) Attending Unavailable TESTRAKE, MYNOR Referring Unavailable PETERSON, TILA (PT) Attending Unavailable TESTRAKE, MYNOR Referring Unavailable PETERSON, TILA (PT) Attending Unavailable TESTRAKE, MYNOR Referring Unavailable PETERSON, TILA (PT) Attending Unavailable TESTRAKE, MYNOR Referring Unavailable PETERSON, TILA (PT) Attending Unavailable TESTRAKE, MYNOR Referring Unavailable FINLEY, ANTHONY Referring Unavailable TESTRAKE, MYNOR Attending Unavailable TESTRAKE, MYNOR Referring Unavailable PETERSON, TILA (PT) Attending Unavailable TESTRAKE, MYNOR Referring Unavailable PETERSON, TILA (PT) Attending Unavailable TESTRAKE, MYNOR Referring Unavailable PETERSON, TILA (PT) Attending Unavailable TESTRAKE, MYNOR Referring Unavailable PETERSON, TILA (PT) Attending Unavailable TESTRAKE, MYNOR Referring Unavailable PETERSON, TILA (PT) Attending Unavailable TESTRAKE, MYNOR Referring Unavailable TESTRAKE, MYNOR Attending Unavailable TESTRAKE, MYNOR Referring Unavailable PETERSON, TILA (PT) Attending Unavailable TESTRAKE, MYNOR Referring Unavailable TESTRAKE, MYNOR Referring Unavailable TESTRAKE, MYNOR Attending Unavailable TESTRAKE, MYNOR Referring Unavailable KIM, GLEN (RIGGER THIRD) Referring Unavailable KIM, GLEN (RIGGER THIRD) Referring Unavailable PETERSON, TILA (PT) Attending Unavailable TESTRAKE, MYNOR Referring Unavailable Oleghe, Efewongbe B Primary Care Provider ROSE, UZAIR Attending Unavailable SULEIMANChandana, EFEWONGBE Primary Care Unavailable ROSE, UZAIR Attending Unavailable CHAIME, EFMICHELLEONGBE Primary Care Unavailable ROSE, UZAIR Referring Unavailable OLELAURAE, EFEWONGBE Primary Care Unavailable ROSE, UZAIR Attending Unavailable ROSE, UZAIR Admitting Unavailable ROSE, UZAIR Attending Unavailable SULEIMANChandana, CLEMENTINAONGBE Primary Care Unavailable DUC GREGORIO Consulting Unavailable Allergies Allergy Classification Reported Allergen(s) Allergy Type Date of Onset Reaction(s) Facility (3 sources) Seasonal allergy; Translations: [SEASONAL ALLERGIES] Propensity to adverse reactions (disorder) 4 AOF [facility] Other [place] (8 sources) Prednisone Allergy to substance 7 Hives, Nausea And Vomiting [facility] Medications Current Medications Medication Drug Class(es) Dates Sig (Normalized) Sig (Original) acetaminophen 500 mg oral tablet (2 sources) Start: 01-09-2023 End: 01-19-2023 take 2 tablets by mouth every eight hours acetaminophen (Tylenol) 500 MG tablet Take 2 tablets (1,000 mg) by mouth in the morning and 2 tablets (1,000 mg) at noon and 2 tablets (1,000 mg) before bedtime. Do all this for 10 days. 30 tablet 0 01/09/2023 01/19/2023 Active Completed/Discontinued Medications Medication Drug Class(es) Dates Sig (Normalized) Sig (Original) 20 ml albumin human, detention 250 mg/ml injection (2 sources) Human Serum Albumin Start: 01-01-2023 End: 01-01-2023 albumin human 25 % IV solution 25 g Problems Active Problems Problem Classification Problem Date Documented Date Episodic/Chronic Allergic reactions (2 sources) Allergic disorder; Translations: [Allergy, unspecified, initial encounter] Onset: 01-01-2023 01-01-2023 Episodic Complication of device; implant or graft (3 sources) Atherosclerosis of coronary artery bypass graft(s) without angina pectoris; Translations: [Arteriosclerosis of coronary artery bypass graft] Onset: 01-01-2023 Chronic Congestive heart failure; nonhypertensive (2 sources) Chronic diastolic heart failure; Translations: [Chronic diastolic (congestive) heart failure] Onset: 01-01-2023 01-01-2023 Chronic Coronary atherosclerosis and other heart disease (11 sources) Atherosclerotic heart disease of [place] coronary artery without angina pectoris; Translations: [Calcific coronary arteriosclerosis] Onset: 07-20-2017 12-23-2022 Chronic Diabetes mellitus with complications (2 sources) Hyperglycemia due to type 2 diabetes mellitus; Translations: [Type 2 diabetes mellitus with hyperglycemia] Onset: 11-14-2022 01-01-2023 Chronic Diabetes mellitus without complication (4 sources) Type 2 diabetes mellitus without complications; Translations: [Type 2 diabetes mellitus] Onset: 01-17-2014 Chronic Disorders of lipid metabolism (3 sources) Hyperlipidemia, unspecified; Translations: [Hyperlipidemia] Onset: 12-28-2012 01-01-2023 Chronic Epilepsy; convulsions (4 sources) Seizure disorder; Translations: [Epilepsy, unspecified, not intractable, without status epilepticus] Onset: 02-06-2009 01-01-2023 Chronic Esophageal disorders (2 sources) Gastroesophageal reflux disease; Translations: [Gastro-esophageal reflux disease without esophagitis] Onset: 01-01-2023 01-01-2023 Chronic Essential hypertension (4 sources) Essential (primary) hypertension; Translations: [Essential hypertension] Onset: 10-08-2015 01-01-2023 Chronic Genitourinary symptoms and ill-defined conditions (2 sources) Increased frequency of urination; Translations: [Frequency of micturition] Onset: 01-01-2023 01-01-2023 Episodic Headache; including migraine (2 sources) Headache; Translations: [Headache] Onset: 01-01-2023 01-01-2023 Episodic Miscellaneous mental health disorders (2 sources) Dissociative disorder; Translations: [Dissociative and conversion disorder, unspecified] Onset: 01-01-2023 01-01-2023 Chronic Nutritional deficiencies (2 sources) Vitamin D deficiency; Translations: [Vitamin D deficiency, unspecified] Onset: 02-06-2009 01-01-2023 Chronic Osteoarthritis (4 sources) Arthritis; Translations: [Unspecified osteoarthritis, unspecified site] Onset: 02-06-2009 01-01-2023 Chronic Osteoporosis (2 sources) Osteoporosis; Translations: [Age-related osteoporosis without current pathological fracture] Onset: 09-09-2022 08-31-2023 Chronic Other aftercare (2 sources) jail (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 of insulin; Translations: [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 (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 of insulin (HCC)] Onset: 12-29-2022 Episodic Other and ill-defined cerebrovascular disease (2 sources) Cerebrovascular disease; Translations: [Cerebrovascular disease, unspecified] Onset: 01-01-2023 01-01-2023 Chronic Other bone disease and musculoskeletal deformities (1 source) Juvenile osteochondrosis of tarsus, right ankle; Translations: [Juvenile osteochondrosis of tarsus, right ankle] Onset: 01-05-2018 Chronic Other bone disease and musculoskeletal deformities (2 sources) Posterior calcaneal exostosis; Translations: [Juvenile osteochondrosis of tarsus, right ankle] Onset: 01-05-2018 01-01-2023 Chronic Other connective tissue disease (2 sources) Calcific tendinitis; Translations: [Calcific tendinitis, unspecified site] Onset: 01-01-2023 01-01-2023 Episodic Other connective tissue disease (2 sources) Muscle pain; Translations: [Myalgia, unspecified site] Onset: 01-01-2023 01-01-2023 Episodic Other connective tissue disease (2 sources) Pain of left upper arm; Translations: [Pain in left upper arm] Onset: 01-01-2023 01-01-2023 Episodic Other connective tissue disease (2 sources) Olecranon bursitis; Translations: [Olecranon bursitis, unspecified elbow] Onset: 01-01-2023 01-01-2023 Episodic Other fractures (2 sources) Compression fracture of lumbar spine; Translations: [Wedge compression fracture of unspecified lumbar vertebra, initial encounter for closed fracture] Onset: 01-01-2023 01-01-2023 Episodic Other lower respiratory disease (2 sources) Cough; Translations: [Cough] Onset: 01-01-2023 01-01-2023 Episodic Other nervous system disorders (2 sources) Numbness of upper limb; Translations: [Anesthesia of skin] Onset: 01-01-2023 01-01-2023 Episodic Other nutritional; endocrine; and metabolic disorders (2 sources) Obesity; Translations: [Obesity, unspecified] Onset: 03-19-2022 01-01-2023 Chronic Other upper respiratory disease (2 sources) Chronic rhinitis; Translations: [Chronic rhinitis] Onset: 08-02-2009 01-01-2023 Chronic Residual codes; unclassified (2 sources) Obstructive sleep apnea syndrome; Translations: [Obstructive sleep apnea (adult) (pediatric)] Onset: 03-16-2012 01-01-2023 Chronic Residual codes; unclassified (2 sources) Amnesia; Translations: [Other amnesia] Onset: 01-01-2023 01-01-2023 Episodic Residual codes; unclassified (2 sources) Pain; Translations: [Pain, unspecified] Onset: 01-01-2023 01-01-2023 Episodic Residual codes; unclassified (1 source) Pain, unspecified; Translations: [Pain, unspecified] Onset: 02-22-2018 Spondylosis; intervertebral disc disorders; other back problems (4 sources) Disorder of joint of spine; Translations: [Other spondylosis with radiculopathy, lumbar region] Onset: 05-19-2016 01-01-2023 Chronic Sprains and strains (2 sources) Strain of back muscle; Translations: [Strain of muscle, fascia and tendon of lower back, initial encounter] Onset: 11-19-2022 01-01-2023 Episodic Superficial injury; contusion (2 sources) Contusion of sacral region; Translations: [Contusion of lower back and pelvis, initial encounter] Onset: 01-01-2023 01-01-2023 Episodic Thyroid disorders (2 sources) Thyroid nodule; Translations: [Nontoxic single thyroid nodule] Onset: 02-20-2012 01-01-2023 Chronic Unclassified (1 source) Unknown / UNK(Unknown) Onset: 10-08-2015 Unclassified (1 source) Left knee painful Onset: 10-14-2017 Unclassified (2 sources) New Patient; Translations: [New Patient] Onset: 12-23-2022 Past or Other Problems Problem Classification Problem Date Documented Da te Episodic/Chronic Nonspecific chest pain (1 source) Chest pain, unspecified; Translations: [Chest pain, unspecified] Onset: 02-09-2017 Episodic Other bone disease and musculoskeletal deformities (2 sources) Osteopenia; Translations: [Other specified disorders of bone density and structure, unspecified site] Onset: 02-06-2009 01-01-2023 Episodic Other circulatory disease (1 source) Other specified symptoms and signs involving the circulatory and respiratory systems; Translations: [Other specified symptoms and signs involving the circulatory and respiratory systems] Onset: 12-17-2017 Episodic Other connective tissue disease (1 source) Achilles tendinitis, right leg; Translations: [Achilles tendinitis, right leg] Onset: 01-05-2018 Episodic Other connective tissue disease (1 source) Calcaneal spur, right foot; Translations: [Calcaneal spur, right foot] Onset: 02-22-2018 Episodic Other connective tissue disease (1 source) Calcaneal spur, left foot; Translations: [Calcaneal spur, left foot] Onset: 02-22-2018 Episodic Other connective tissue disease (2 sources) Right achilles tendonitis; Translations: [Achilles tendinitis, right leg] Onset: 12-21-2012 01-01-2023 Episodic Other non-traumatic joint disorders (2 sources) Shoulder pain; Translations: [Pain in unspecified shoulder] Onset: 01-10-2022 01-01-2023 Episodic Other screening for suspected conditions (not mental disorders or infectious disease) (1 source) Encounter for screening mammogram for malignant neoplasm of breast; Translations: [Encounter for screening mammogram for malignant neoplasm of breast] Onset: 07-20-2017 Episodic Pneumonia (except that caused by tuberculosis or sexually transmitted disease) (2 sources) Pneumonia; Translations: [Pneumonia, unspecified organism] Onset: 06-17-2022 01-01-2023 Episodic Spondylosis; intervertebral disc disorders; other back problems (2 sources) Cervico-occipital neuralgia; Translations: [Occipital neuralgia] Onset: 02-24-2022 01-01-2023 Episodic Results Test Name Value Interpretation Reference Range Facil ity Vital Signs Date Time Vital Sign Value Performing Clinician Latosha quiroz 01-11-2023 07:00-0400 Body temperature 98.29 [degF] Uzair Rose MD Work Phone: [employer] 01-11-2023 07:00-0400 Diastolic blood pressure 62 mm[Hg] Uzair Rose MD Work Phone: [employer] 01-11-2023 07:00-0400 Heart rate 81 /min Uzair Rose MD Work Phone: [employer] 01-11-2023 07:00-0400 Respiratory rate 16 /min Uzair Rose MD Work Phone: [employer] 01-11-2023 07:00-0400 SaO2% (BldA) [Mass fraction] 96 % Uzairjerica Rose MD Work Phone: [facility] 01-11-2023 07:00-0400 Systolic blood pressure 112 mm[Hg] Uzairjerica Rose MD Work Phone: [facility] 01-11-2023 04:43-0400 Body mass index (BMI) [Ratio] 31.21 kg/m2 Uzairjerica Rose MD Work Phone: [facility] 01-11-2023 04:43-0400 Body weight 77.4 kg Uzair Rose MD Work Phone: [facility] 01-02-2023 08:47-0400 Body height 157.5 cm Uzairjerica Rose MD Work Phone: [facility] 01-01-2023 10:48-0400 SaO2% (BldA) [Mass fraction] 99.2 % Uzairjerica Rose MD Work Phone: [employer] [facility] 12-23-2022 10:18-0400 Body height 157.5 cm Uzair Rose MD Work Phone: [facility] 12-23-2022 10:18-0400 Body mass index (BMI) [Ratio] 31.17 kg/m2 Uzairjerica Rose MD Work Phone: [employer] [facility] 12-23-2022 10:18-0400 Body weight 77.29 kg Uzair Rose MD Work Phone: [employer] 12-23-2022 10:18-0400 Diastolic blood pressure 78 mm[Hg] Uzair Rose MD Work Phone: [employer] [facility] 12-23-2022 10:18-0400 Heart rate 91 /min Uzair Rose MD Work Phone: [employer] 12-23-2022 10:18-0400 Systolic blood pressure 140 mm[Hg] Uzair Rose MD Work Phone: [facility] Encounters Encounter Date Encounter Type Care Provider Facility Start: 01-27-2023 End: 01-27-2023 Postop follow up visit related to original px Malik Ken CNP Work Phone: [facility]ovascular [facility] Thoracic Surgery Procedures Date Procedure Procedure Detail Performing Clinician Start: 01-16-2023 History of coronary artery bypass grafting S/P CABG (coronary artery bypass graft) Malik Ken CNP Work Phone: Start: 01-10-2023 Glucose quantitative blood xcpt reagent strip Uzair Rose MD Work Phone: Start: 01-09-2023 Glucose quantitative blood xcpt reagent strip Uzair Rose MD Work Phone: Start: 01-08-2023 Glucose quantitative blood xcpt reagent strip Uzair Rose MD Work Phone: Start: 01-08-2023 Glucose quantitative blood xcpt reagent strip Uzair Rose MD Work Phone: Start: 01-08-2023 Radiologic exam ches t single view Shruthi Ken TRANSPORT MANAGER Work Phone: Start: 01-07-2023 Glucose quantitative blood xcpt reagent strip Uzair oRse MD Work Phone: Start: 01-07-2023 Glucose quantitative blood xcpt reagent strip Uzair Rose MD Work Phone: Start: 01-07-2023 Glucose quantitative blood xcpt reagent strip Uzair Rose MD Work Phone: Start: 01-07-2023 Radiologic exam ches t single view Shruthi Ken TRANSPORT MANAGER Work Phone: Start: 01-07-2023 Basic metabolic pane l calcium total Shruthi Ken TRANSPORT MANAGER Work Phone: Start: 01-06-2023 Glucose quantitative blood xcpt reagent strip Uzair Rose MD Work Phone: Start: 01-06-2023 Glucose quantitative blood xcpt reagent strip Uzair Rose MD Work Phone: Start: 01-06-2023 Glucose quantitative blood xcpt reagent strip Uzair Rose MD Work Phone: Start: 01-06-2023 Radiologic exam ches t single view Shruthi Nel Weir ICE SELLER - TRANSPORT MANAGER Work Phone: Start: 01-06-2023 Basic metabolic pane l calcium total Shruthi Nel Weir ICE SELLER - TRANSPORT MANAGER Work Phone: Start: 01-05-2023 Glucose quantitative blood xcpt reagent strip Uzair Rose MD Work Phone: Start: 01-05-2023 Glucose quantitative blood xcpt reagent strip Uzair Rose MD Work Phone: Start: 01-05-2023 Radiologic exam ches t single view Shruthi Nel Weir ICE SELLER - TRANSPORT MANAGER Work Phone: Start: 01-05-2023 Compatibility each u nit electronic Remington Hopkins MD Work Phone: Start: 01-05-2023 Basic metabolic pane l calcium total Shruthi Nel Weir ICE SELLER - TRANSPORT MANAGER Work Phone: Start: 01-04-2023 Glucose quantitative blood xcpt reagent strip Uzair Rose MD Work Phone: Start: 01-04-2023 Glucose quantitative blood xcpt reagent strip Uzair Rose MD Work Phone: Start: 01-04-2023 Radiologic exam ches t single view Shruthi Nel Weir ICE SELLER - TRANSPORT MANAGER Work Phone: Start: 01-04-2023 End: 01-04-2023 Basic metabolic panel calcium total Shruthi Nel Weir ICE SELLER - TRANSPORT MANAGER Work Phone: Start: 01-03-2023 Glucose quantitative blood xcpt reagent strip Uzair Rose MD Work Phone: Start: 01-03-2023 Glucose quantitative blood xcpt reagent strip Uzair Rose MD Work Phone: Start: 01-03-2023 Glucose quantitative blood xcpt reagent strip Uzair Rose MD Work Phone: Start: 01-03-2023 Radiologic exam ches t single view Shruthi Weir ICE SELLER - TRANSPORT MANAGER Work Phone: Start: 01-03-2023 Basic metabolic pane l calcium total Shruthi Nel Weir ICE SELLER - TRANSPORT MANAGER Work Phone: Start: 01-02-2023 Glucose quantitative blood xcpt reagent strip Uzair Rose MD Work Phone: Start: 01-02-2023 Glucose quantitative blood xcpt reagent strip Uzair Rose MD Work Phone: Start: 01-02-2023 End: 01-02-2023 Basic metabolic panel calcium total Chandler Correiajelly ICE SELLER - TRANSPORT MANAGER Work Phone: Start: 01-02-2023 Glucose quantitative blood xcpt reagent strip Uzair Rose MD Work Phone: Start: 01-02-2023 Glucose quantitative blood xcpt reagent strip Uzair Rose MD Work Phone: Start: 01-02-2023 Radiologic exam ches t single view Shruthi Weir ICE SELLER - TRANSPORT MANAGER Work Phone: Start: 01-02-2023 Ecg routine ecg w/le ast 12 lds trcg only w/o i&r Shruthi Weir ICE SELLER - TRANSPORT MANAGER Work Phone: Start: 01-02-2023 End: 01-02-2023 Glucose quantitative blood xcpt reagent strip Uzair Rose MD Work Phone: Start: 01-02-2023 End: 01-02-2023 Glucose quantitative blood xcpt reagent strip Uzair Rose MD Work Phone: Start: 01-02-2023 Glucose quantitative blood xcpt reagent strip Uzair Rose MD Work Phone: Start: 01-02-2023 End: 01-02-2023 Basic metabolic panel calcium total Shruthi Weir ICE SELLER - TRANSPORT MANAGER Work Phone: Start: 01-01-2023 Glucose quantitative blood xcpt reagent strip Uzair Rose MD Work Phone: Start: 01-01-2023 End: 01-01-2023 Glucose quantitative blood xcpt reagent strip Uzair Rose MD Work Phone: Start: 01-01-2023 End: 01-01-2023 Glucose quantitative blood xcpt reagent strip Uzair Rose MD Work Phone: Start: 01-01-2023 End: 01-01-2023 Glucose quantitative blood xcpt reagent strip Uzair Rose MD Work Phone: Start: 01-01-2023 Blood count hematocrit Mynor Villareal ICE SELLER - TRANSPORT MANAGER Work Phone: Start: 01-01-2023 Compatibility each u nit electronic Mynor Carranza [employer] ICE SELLER - [facility] Work Phone: Start: 01-01-2023 End: 01-01-2023 TRANSFUSE RED BLOOD CELLS Mynor Carranza Gene t ICE SELLER - TRANSPORT MANAGER Work Phone: Start: 01-01-2023 Radiologic exam ches t single view Mynor Villareal ICE SELLER - TRANSPORT MANAGER Work Phone: Start: 01-01-2023 End: 01-01-2023 Blood count complete automated Mynor Villareal ICE SELLER - TRANSPORT MANAGER Work Phone: Start: 01-01-2023 Echo transesophag r- t 2d w/prb img acquisj i&r Uzair Rose MD Work Phone: Start: 01-01-2023 Ecg routine ecg w/le ast 12 lds trcg only w/o i&r Shruthi Weir ICE SELLER - [facility] Work Phone: Start: 01-01-2023 End: 01-01-2023 Glucose quantitative blood xcpt reagent strip Uzair Rose MD Work Phone: Start: 01-01-2023 Basic metabolic pane l calcium total Uzair Rose MD Work Phone: Start: 01-01-2023 Blood gases any combination ph pco2 po2 co2 hco3 Uzair Rose MD Work Phone: Start: 01-01-2023 End: 01-01-2023 Cabg w/arterial graft three arterial grafts Uzair Rose MD Work Phone: Start: 01-01-2023 End: 01-01-2023 Echo transesophag r-t 2d w/prb img acquisj i&r Uzair Rose MD Work Phone: Start: 01-01-2023 End: 01-01-2023 Glucose quantitative blood xcpt reagent strip Uzair Rose MD Work Phone: Start: 12-12-2021 Mammography Uzair gillespie MD Work Phone: Start: 03-22-2018 History of placement of stent for coronary artery disease History of coronary artery stent placement Uzair Rose MD Work Phone: History of coronary artery bypass grafting S/P CABG (coronary artery bypass graft) Uzair Rose MD Work Phone: History of coronary artery bypass grafting S/P CABG (coronary artery bypass graft) Malik Tabares APRN - TRANSPORT MANAGER Work Phone: Plan of Treatment Date Care Activity Detail Author Start: 01-08-2024 Creatinine measurement Creatinine Level [facility] Start: 01-08-2024 Potassium measurement Potassium Level [facility] Start: 01-02-2024 Echocardiography Echocardiogram [facility] Start: 12-30-2023 Hemoglobin A1c measurement Diabetes: Hemoglobin A1C [facility] Start: 01-19-2023 End: 01-19-2023 Patient encounter procedure 01/19/2023 11:30 AM EDT Office Visit [facility] Cardiovascular & Thoracic Surgery [address] [place] [address] Malik Tabares APRN - TRANSPORT MANAGER [address] [place] [address] [facility] Start: 01-02-2023 Influenza vaccination Influenza Vaccine (#1) [facility] Start: 01-01-2023 End: 01-01-2023 Admission to same day surgery center 01/01/2023 7:30 AM EDT - 01/01/2023 12:30 PM EDT Surgery [facility] MAIN OR [address] [place] [id number] Uzair Rose MD [address] [place] [address] CABG AND SIS [55048 (CPT )] [facility] MAIN OR Immunizations Immunization Date Immunization Notes Care Provider Fa cility 03-10-2022 influenza virus vacc ine, unspecified formulation Uzair Rose MD Work Phone: [facility] Payers Date Payer Category Payer Medicare [facility] MEDIC[facility] ADV[facility]AGE [employer] [id number] 2021-Present [address] [place] [address] Medicare HMO [id number] 2021 Medicare [id number] Medicare [id number] Social History Date Type Detail Facility Start: 12-22-2022 Tobacco smoking status NHIS Never sm oked tobacco [facility] Start: 12-22-2022 Tobacco use and exposure Smokeless t obacco non-user [facility] Start: 12-23-2022 Alcohol intake Lifetime non-d domenica (finding) [facility] Start: 12-22-2022 End: 01-19-2023 History of Social function [facility] Start: 12-22-2022 End: 01-19-2023 Tobacco use panel [facility] Start: 1950 Sex Assigned At Not on file [facility] Start: 12-13-2022 End: 01-19-2023 Exposure to SARS-CoV-2 (event) Not sure [facility] Start: 12-29-2022 End: 01-19-2023 Alcohol intake Current drinker of alcohol (finding) [facility] Start: 12-29-2022 Alcohol Comment once a year [facility] Eleazar olmos Within the last year , have you been afraid of your partner or ex-partner? No [facility] Clinical Notes 12-23-2022 to 01-27-2023 Malik Tabares APRN - SERENA - 01/27/2023 10:45 AM EDTCare Coordination - Unknown Case Management - 01/11/2023 2:45 PM EDTCare Plan - Anna Escalera RN - 01/11/2023 11:12 AM EDTDischarge Instructions Note Date & Type Note Facility 01-27-2023 History of Presen t illness Narrative Images from the original note were not included. [facility]: [facility] [address] [facility] [address] Dept: [phone] Dept Loc: [phone] Visit type: Established patient - Virtual Reason for Visit: Post-op Surgery/Procedure: CABGx4 (GARCIA to LAD, RSVG to OM, RSVG to Diag1, SVG to PDA of RCA)left leg EVH (calf to thigh) with Dr. Rose on 01/01/23 Assessment/Plan POD#26 EF: 01/01/23 SIS normal Day from Discharge (01/11/2023) #16 -d/c from facility - back home -+COVID at facility - rescheduling PCP and Cards visits -Reviewed current meds Continue as ordered: no changes made ASA, statin, BB, Plavix -Surgical Incisions: healing appropriately, well approximated, no s/s of infection -Physical therapy as outlined in discharge instructions -Acute Post-Operative Pain Tx plan: OTC as needed Weight restriction measures 1-4 weeks from date of surgery- 10lbs weight restriction: 01/29/23 5-8 weeks from date of surgery- 20lbs weight restriction: 02/26/23 9-12 weeks from date of surgery-30lbs weight restriction approximate end date: 03/26/23 Disposition: two week phone call unless needed earlier Patient verbalized understanding of plan and stated they would call if any questions or concerns arise. Treatment Team: PCP: MAYDA GARCIA Cardiology: Dr. Johnson Patient was seen today via Telehealth by agreement and consent. I used the following Telehealth technology: Audio capability only. Total length of call 11 minutes. The patient was offered and advised video for a more comprehensive evaluation, but the patient declined or was unable to use video. Patient location: [place] Patient Location: Home. This patient encounter is appropriate and reasonable under the circumstances: transportation issues . The patient has been advised of the potential risks and limitations of this mode of treatment (including but not limited to the absence of in-person examination) and has agreed to be treated in a remote fashion in spite of them. Any and all of the patient's/patient's family's questions on this issue have been answered and I have made no promises or guarantees to the patient. The patient has also been advised to contact this office for worsening conditions or problems, and seek emergency medical treatment and/or call 911 if the patient deems either necessary. The patient stated that they are currently in the [facility]. If the patient is a minor, permission has been obtained by the parent or guardian for the patient to receive medical care at this visit. Patient identification was verified at the start of the visit: yes Total time spent on this encounter: 15 Subjective HPI: 72 y.o. female was referred by Dr. Bhanu Milian. 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 Patient also had an echo done which showed mild (1+) tricuspid valve insufficiency. She consented and was taken to the operating room on 01/01/[address] Rose. Postoperative course was uncomplicated and she was discharged to [facility] on POD#10. 01/19/23: Patient presented with son from who is here transitional care for initial postop follow-up. Surgical incisions healing appropriately with no signs of infection or drainage noted. No issues or concerns today medications reviewed from facility updated in the EMR. This son stated that patient appears to be getting stronger each day able to walk more and more. Per patient she just does not know how long she is going to be at the rehab facility but stated that her insurance did not approve it for 1 more week. She will follow with Dr. Johnson post CABG - will assist on scheduling follow up. No other needs at this time no medication changes. We will have 2-week virtual follow-up unless needed earlier. 01/27/23: Virtual visit for follow up. No issues or concerns at this time. Still slightly tired/fatigued. She was recently discharged from facility. Tested positive for COVID while at the facility. Post op + recent COVID contributing to fatigue. Pain controlled. Planning on rescheduling PCP and Cards visit for next week or so. Incisions healing appropriately with no signs of infection. If patient needs something she stated she will reach out. Plan for telephone call in 2 weeks unless needed earlier. Review of Systems Constitutional: Positive for activity change and fatigue. Negative for diaphoresis and fever. Respiratory: Negative for cough, shortness of breath and wheezing. Cardiovascular: Negative for chest pain, palpitations and leg swelling. Gastrointestinal: Negative for abdominal distention, constipation and diarrhea. Skin: Negative for color change, pallor and rash. Objective Patient reported: none noted Wt Readings from Last 3 Encounters: 01/19/23 168 lb (76.2 kg) 01/11/23 170 lb 10.2 oz (77.4 kg) 12/29/22 172 lb (78 kg) Physical exam deferred due to virtual visit-with audio (telephone) capabilities only Labs/Imaging/Testing: reviewed EMR, see A&P for pertinent diagnostic results related to office visit Disclaimer INFORMED CONSENT:The nature and purpose of the proposed treatment or procedure have been discussed. The risks and benefits of the proposed treatment or procedures have been reviewed. Alternatives have been reviewed in addition to the risks and benefits of not receiving treatments or undergoing procedures. Pursuant to this discussion, the patient agrees to undergo the proposed treatment or procedure. Captured images seen in this note from are not a substitute for a comprehensive interpretation of the entire data set as reflected by the interpreting physician with regard to radiology, echocardiography, and other diagnostic images. This note may have been dictated using [employer] Edition 2.6 and/or [employer] Voice Recognition Feature. The document was proofread, however unrecognized voice recognition worm grower errors may be present. documented in this encounter [facility] 01-11-2023 Miscellaneous Notes Patient Choice Patient Name: LACY ALVARADO Date of : 1950 The patient is Moderately Stable - Low risk of patient condition declining or worsening The patient's goals for the shift include transferring to [facility]. Report called to Nilsa ([facility]) at 1115 am. All questions were answered, IV removed, monitor removed, and belongings packed into her personal box. Patient understands the importance of continuing all medication. All goals met before discharge with regard to her care plan. Weekend task and electronic chart reviewed. DCP-[facility]. Per [email or web address] [email or web address] [email or web address], we have auth and can accept patient today . Discharge orders sent via Careport to SNF. Transportation arranged with [employer] for 2 pm pick-up. Patient, , RN and community development coordinator notified of same. Transportation form giving to community development coordinator. Images from the original note were not included. CARE COORDINATION DAILY NOTE/UPDATE Medical Plan: sp CABG x 3 POD # 9. Discharge Plan: [facility] Discharge Barriers: pending medical clearance Received a message from Anna COLLINS I heard from [facility] okay to admit. Stated by Shruthi Marshall if you have any questions. Call placed to Shruhti Marshall to confirm and make arrangements, no answer, left voicemail with my contact information. Chart and Careport reviewed. After hours form on chart. Expected discharge, Discharge Milestones, and Rapid Rounding reviewed and updated. TCC will continue to follow. NDUM: AUTH obtained and patient can discharge once medically ready, tomorrow am is plan. Dr. Rose updated. Anna COLLINS updated. Discharge Milestones and Delays Expected Date/Time: 01/11/[address] discharge order Complete med reconciliation Case mgmt discharge readiness Clinical Stability Diagnsotic Workup Expected Discharge History Expected Date/Time Set By Reviewed At 01/11/2023 Alaina Truong RN 01/10/2023 2:17 PM Precert pending 01/09/2023 Delores Mullins RN 01/09/2023 10:21 AM 01/10/2023 Delores Mullins RN 01/07/2023 9:47 AM 01/07/2023 Delores Mullins RN 01/06/2023 8:10 AM PT/OT requested 01/06/2023 Delores Mullins RN 01/02/2023 2:07 PM 01/06/2023 Shruthi Weir, ICE SELLER - TRANSPORT MANAGER 01/01/2023 11:16 AM 01/06/2023 Uzair Rose MD 01/01/2023 5:45 AM Length of Stay (Days): 9 GMLOS: 5.9 Images from the original note were not included. Care Management Progress Note Patient remains on HLU sp CABG x 3 POD # 8. [facility] can accept, spoke with Shauna in admissions, precert started this morning. Verified no COVID or 7000 needed as a they are short term only. After hours completed, left on chart and updated alyssa Holloway over the phone. Discharge Milestones and Delays Expected Date/Time: 01/09/[address] discharge order Complete med reconciliation Case mgmt discharge readiness Clinical Stability Diagnsotic Workup Expected Discharge History Expected Date/Time Set By Reviewed At 01/09/2023 Delores Mullins RN 01/09/2023 10:21 AM Precert pending 01/10/2023 Delores Mullins RN 01/07/2023 9:47 AM 01/07/2023 Delores Mullins RN 01/06/2023 8:10 AM PT/OT requested 01/06/2023 Delores Mullins RN 01/02/2023 2:07 PM 01/06/2023 Shruthi Wier, ICE SELLER - TRANSPORT MANAGER 01/01/2023 11:16 AM 01/06/2023 Uzair Rose MD 01/01/2023 5:45 AM Length of Stay (Days): 8 GMLOS: 5.9 [facility] per TCC request. Referral placed to [facility] via fax # [phone] to Shauna in Admissions Await review and response regarding ability to accept. TCC notified. Referral placed to [facility] per TCC request. Await review and response regarding ability to accept. TCC notified. Spoke with patient at bedside, alyssa Holloway over the phone to discuss therapy recommendations. Agreeable to [facility] and 2nd choice [facility]. Images from the original note were not included. Care Management Progress Note Patient remains on HLU s/p CABG x 3 POD # 6. PT continuing to recommend IPR vs SNF. [facility] unable to accept patient, FOC, patient and niece declining SNF, discharge plan is home with [facility]. TCC to follow for updated therapy recs vs continued discussion regarding placement. Discharge Milestones and Delays Expected Date/Time: 01/10/[address] discharge order Complete med reconciliation Case mgmt discharge readiness Clinical Stability Diagnsotic Workup Expected Discharge History Expected Date/Time Set By Reviewed At 01/10/2023 Delores Mullins RN 01/07/2023 9:47 AM 01/07/2023 Delores Mullins RN 01/06/2023 8:10 AM PT/OT requested 01/06/2023 Delores Mullins RN 01/02/2023 2:07 PM 01/06/2023 Shruthi Weir, ICE SELLER - TRANSPORT MANAGER 01/01/2023 11:16 AM 01/06/2023 Uzair Rose MD 01/01/2023 5:45 AM Length of Stay (Days): 6 GMLOS: 5.9 [facility] unable to accept patient, too functional. Updated patient at bedside and niece Amie ([facility]CP[facility]) over the phone. Declined SNF at this time, would like to plan discharge home with [facility] including PT/OT/SN/SUPERVISOR COLD ROLLING if possible. Will updated [facility], [facility]OOKER aware. Images from the original note were not included. Care Management Progress Note Patient remains on HLU s/p CABG x 3 POD # 5. VSS, on RA, in NSR on tele, BB increased, holding diuretics, insulin per endocrine, and PT recommending IPR (01/04). Patient and family agreeable to [facility], left message on therapy line requesting see today for both PT/OT to start precert. Discharge Milestones and Delays Expected Date/Time: 01/07/[address] discharge order Complete med reconciliation Case mgmt discharge readiness Clinical Stability Diagnsotic Workup Expected Discharge History Expected Date/Time Set By Reviewed At 01/07/2023 Delores Mullins RN 01/06/2023 8:10 AM PT/OT requested 01/06/2023 Delores Mullins RN 01/02/2023 2:07 PM 01/06/2023 Shruthi Weir APRN - TRANSPORT MANAGER 01/01/2023 11:16 AM 01/06/2023 Uzair Rose MD 01/01/2023 5:45 AM Length of Stay (Days): 5 GMLOS: 5.9 Problem: Knowledge Deficit Goal: Patient/family/caregiver demonstrates understanding of disease process, treatment plan, medications, and discharge instructions Outcome: Progressing Problem: Potential for Compromised Skin Integrity Goal: Skin Integrity is Maintained or Improved Outcome: Progressing Goal: Nutritional status is improving Outcome: Progressing Problem: Urinary Incontinence Goal: Perineal skin integrity is maintained or improved Outcome: Progressing Problem: Problem Interventions Goal: Assess Nutritional Intake Outcome: Progressing Route Inspector following case for Discharge Needs. Care Managment Initial Assessment Date: 01/02/2023 Patient Name: Lacy Alvarado : 1950 Patient Information Source of Information: Patient Cognition/Language: WFL - Within Functional Limits Permission given to speak with patient dermatology sales representative/caregiver as indicated: Yes Confirmation of Payer with patient/family: Yes Payer Name: Oscar Medicare : No Confirmation of Primary Care Physician: Confirmed PCP Name: Dr. Garcia Seen in last 2 years?: Yes Primary Caregiver: Self If assistance needed, confirmed caregiver ready, willing and able to care for patient at discharge: Confirmed with: Living Arrangements Current Residence: Apartment Number of Floors 1 Number of Entry Steps: (3 full flights (patient apt pn 3rd level)) Bed/Bath Levels: Facility: Facility Name: Plan to Return: Lives with: Extended family members Support Systems: Family members Activities of Daily Living Ambulation: Independent Bathing/Dressing: Independent Elimination/Continence/Toileting: Independent Feeding: Independent Who Assists with Activities of Daily Living: Instrumental Activities of Daily Living Prescription Coverage: Yes Pharmacy Used: [facility] Medication Management: Independent Transportation/Shopping: Assistance Provider Transportation/Shopping Assistance Provider Name: family Transportation Mode: Car Needs Assistance with Transportation at Discharge: No Meal Preparation: Independent Laundry/Cleaning: Independent Finances/Bill Paying: Independent Communication: Independent Types of Care Services/Equipment Utilized Care Services: Dialysis Type: Durable Medical Equipment: Patient's Goal/Discharge Plan Patient expects to be discharged to: home Discharge Planning Actions: Continue to follow Patient's Choice Rights and [employer] and Collaborative Relationships Disclosed as Indicated for Post-Acute Care: Interdisciplinary Team Engagement: PT/OT, Home Health Care Social Work Referral for: Additional Information: Patient admitted to HLU s/p CABG x POD # 1. Spoke with patient at bedside, introduced self and role. Patient from home with grandson, is independent, no longer drives, has PCP and prescription coverage, will have a ride home and will task PEDROZA to follow for home care needs. Delores Mullins RN Cardiothoracic Surgery Operative Report Pre-operative Diagnosis: Multivessel coronary artery disease Post-operative Diagnosis: Multivessel coronary artery disease Procedure: Coronary revascularization x4: Left internal mammary artery grafted to the left anterior descending coronary artery, reverse saphenous vein graft grafted to the obtuse marginal coronary artery, reverse saphenous vein graft graft to the first diagonal coronary artery, reverse saphenous vein graft grafted to the posterior descending branch of the right coronary artery; endoscopic vein harvesting left lower extremity (calf to thigh); intraoperative transesophageal echocardiography Surgeon: Uzair Rose MD Mission Support Specialist(s): [] Thomas Silva [x] Rg Marie [x] Yemi Sharma [] Yemi Tabares [] Other Anesthesia: General Estimated blood loss: Pump suction and Cell Saver used Total IV fluids: See anesthesia and perfusion record Blood Transfusion?: No Drains: Mediastinum left pleural space Specimens: None Complications: None Condition: Stable Prophylactic Antibiotics: Yes 1st or 2nd generation cephalosporin given (or other antibiotic in the event of an allergy) within 1 hour of surgical incision (two hours if receiving Vancomycin or flouroquinolone) If NO, indication reason why: [] Patient on continuous antibiotics for documented preoperative infection [] Other: The STS Risk Calculator score was calculated and discussed with the patient/family prior to surgery. Yes: [x] No: [] Not a risk calculated procedure [] Emergent or Emergent/Salvage Used of NIKKIE: Yes No due to: [] Subclavian stenosis [] Emergent or Emergent/Salvage [] Prior cardiothoracic surgery [] Prior mediastinal radiation [] No bypassable LAD disease, LAD not needed/bypassed: (This can include clean LAD, diffusely diseased LAD or other condition resulting in the LAD not being bypassed). Beta-teri within 24 hours prior to surgical incision: [x] Yes - please see documentation in EMR [] No [] Allergy [] Heart block [] COPD [] Hypotension BP: [] Bradycardia HR: INDICATIONS FOR SURGERY: Lacy Alvarado is a 72 y.o. female who was referred by Dr. Bhanu Milian. Patient was admitted on 12/18/22 to [facility] with CP. She had a history of CHF, CAD, DM type 2, hyperlipidemia, epilepsy, HTN, RA, LINA, and prior PCI with stent of the left anterior descending artery. Patient underwent a left heart catheterization that demonstrated a high grade lesion in the circumflex artery, a 50% lesion in the LAD, proximal disease within the first diagonal, and a 50 to 60% lesion in the mid RCA. Patient also had an echo done which showed mild (1+) tricuspid valve insufficiency. The risk benefits and alternatives were discussed in detail with the patient and she agreed to proceed with surgical revascularization. The culprit lesion appeared to be the complex lesion within the circumflex coronary artery. DESCRIPTION OF PROCEDURE: Patient was taken to the operative suite in a fasting state and general endotracheal anesthesia was instituted. Monitoring lines were inserted by the department of anesthesia and intraoperative esophageal echocardiography was performed. No valvular pathology was seen. The details will follow under separate report. After the patient was positioned prepped and draped in an appropriate timeout conducted, the left lower extremity was incised and the greater saphenous vein was procured from the calf to the thigh using an endoscopic vein harvesting technique. The vein was prepared in the usual fashion and the incisions were closed in usual manner. They have. Simultaneously, median sternotomy was employed and the left internal mammary artery was harvested in a skeletonized and pedicled fashion. Heparin was administered to obtain an ACT of greater than 400 seconds. The pericardium was opened and marsupialized and pursestrings were placed and central cannulation was performed with a 6.5 mm cannula in the distal ascending aorta, a cardioplegia needle in the proximal ascending aorta, and a multistage venous cannula via the right atrium into the inferior vena cava. Cardiopulmonary bypass was established there was crossclamped and cardioplegia was administered. Greater than 1 L of cardioplegia was initially administered and then intermittent aliquots of cold blood were given between each distal anastomoses. Each anastomosis distally was performed in a similar fashion. The target coronary artery was identified, an arteriotomy was performed, and the bypass, was grafted in the side with a running 7-0 Prolene suture in an open fashion, probed prior to completion, and then infused with saline at the conclusion to assure adequate flow. The first bypass to be performed was a reverse saphenous vein graft grafted to the PDA of the right coronary artery. This anastomosis proceeded smoothly and there was good flow. The target was adequate. Next a reverse saphenous vein graft was grafted to the large OM vessel. This was a good target and the anastomosis proceeded smoothly and there was good flow. Next a reverse saphenous vein graft was grafted to the relatively small first diagonal. This anastomosis proceeded smoothly and there was good flow. Last the left internal mammary artery was grafted to the distal mid LAD. This anastomosis proceeded smoothly and there was good flow. Hotshot was administered the cross-clamp was removed. A partial occluding clamp was placed on the ascending aorta and 3 proximal. The grafts were grafted in the side with the ascending aorta taking care to avoid kinking twisting and excessive tension. Once these anastomoses were completed with a running 5-0 Prolene sutures, preparations were made to wean and separate from cardiopulmonary bypass. We weaned and from cardiopulmonary bypass and protamine was administered once adequate cardiac function had been identified. Decannulation ensued. Pursestrings were secured. Chest tubes were inserted in the mediastinum and left pleural space. Hemostasis was achieved. We then proceeded with closure. The sternum was reapproximated with [id number] wires and the overlying tissues were closed in multiple layers. The patient was transported to the intensive care unit in serious but stable condition. documented in this encounter [facility] 01-11-2023 Note Formatting of this n ote might be different from the original. Patient Choice Patient Name: LACY ALVARADO Date of : 1950 [facility] 01-11-2023 Plan of care note The patient is Moderately Stable - Low risk of patient condition declining or worsening The patient's goals for the shift include transferring to [facility]. [facility]5 am. All questions were answered, IV removed, monitor removed, and belongings packed into her personal box. Patient understands the importance of continuing all medication. All goals met before discharge with regard to her care plan. [facility] 01-11-2023 Note Formatting of this n ote might be different from the original. Weekend task and electronic chart reviewed. DCP-[facility]. Per [email or web address] [email or web address], we have auth and can accept patient today . Discharge orders sent via Careport to SNF. Transportation arranged with [employer] for 2 pm pick-up. Patient, , RN and community development coordinator notified of same. Transportation form giving to community development coordinator. [facility] 01-11-2023 History of Presen t illness Narrative Discussed with TCC and social work; patient obtained auth - Discharge today to [facility] Images from the original note were not included. Cardiothoracic Surgery/CCM Progress Note PATIENT NAME: Lacy Alvarado DATE: 01/11/23 HPI: 72 y.o. female was referred by Dr. Bhanu Milian. 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 Patient also had an echo done which showed mild (1+) tricuspid valve insufficiency. She presents for CABG from the OP setting Surgery/Procedure: 01/01/23: CABGx3 with Dr. Rose Interval History: 01/11/23, POD# 10: up independently. Reviewed chart - ?auth obtained. Will reach out to distribution specialist TCC/Social work. Pain has been ready from medical standpoint to discharge. Review of Systems Constitutional: Negative for diaphoresis, fatigue and fever. Respiratory: Negative for cough, shortness of breath and wheezing. Cardiovascular: Negative for chest pain, palpitations and leg swelling. Gastrointestinal: Negative for abdominal distention, constipation and diarrhea. Skin: Negative for color change, pallor and rash. Objective: Last BM Date: 01/10/23 Vitals: BP: 116/64, MAP (mmHg): 77, BP Method: Automatic Heart Rate: 75 Resp: 18 Temp: 36.6 C (97.9 F), Temp Source: Temporal BMI (Calculated): 31.2 Physical Exam Cardiovascular: Rate and Rhythm: Normal rate and regular rhythm. Heart sounds: Normal heart sounds. No murmur heard. No friction rub. Pulmonary: Effort: Pulmonary effort is normal. Skin: General: Skin is warm and dry. Capillary Refill: Capillary refill takes less than 2 seconds. Findings: Bruising and ecchymosis present. Comments: Surgical Incisions: well approximate; clean dry with no drainage noted. Surrounding skin no redness, warmth, or signs of infection noted. Neurological: Mental Status: She is alert. Psychiatric: Behavior: Behavior is cooperative. Assessment: CAD s/p PCI now s/p CABGx3 CHF T2DM HLD Epilepsy HTN RA LINA Post operative Pulm Management: Normal Post-operative Course Post-operative Atrial Fibrillation: []Yes [x] No Acute blood loss anemia/consumptive thrombocytopenia Plan: Patient Status: Telemetry Medications as ordered - no changes made ASA, statin, BB, plavix Endo signed off PT/OT: 01/09 IPR, SNF Pulmonary hygiene: IS and Acapella GI prophy: PO protonix DVT prophy:TEDs, SCDs, and Heparin SubQ Disposition: Possible discharge today - will need to reach out to [facility] to clarify she is cleared for [facility] Central Line: []Yes [x] No Arterial Line: []Yes [x] No Araya: []Yes [x] No Restraints: []Yes [x] No Patient discussed and plan of day developed from multidisciplinary rounds between Cardiothoracic Surgery (Cardiothoracic Surgeon, SONYA) and Critical Care Attending Cardiac Core Medications: ASA, Plavix, Statin, and BB EF: normal 01/01/23 Blood Conservation: Transfused postoperatively Plug Sorter: [facility] Images from the original note were not included. Cardiothoracic Surgery/[facility] Progress Note PATIENT NAME: Lacy Alvarado DATE: 01/10/23 HPI: 72 y.o. female was referred by Dr. Bhanu Milian. 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 Patient also had an echo done which showed mild (1+) tricuspid valve insufficiency. She presents for CABG from the OP setting Surgery/Procedure: 01/01/23: CABGx3 with Dr. Rose Interval History: 01/10/23, POD# 9: VSS up in chair on RA. No acute issues overnight. Ready to get out of here and on to the next place (pending [facility] facility) Review of Systems Constitutional: Negative for diaphoresis, fatigue and fever. Respiratory: Negative for cough, shortness of breath and wheezing. Cardiovascular: Negative for chest pain, palpitations and leg swelling. Gastrointestinal: Negative for abdominal distention, constipation and diarrhea. Skin: Negative for color change, pallor and rash. Objective: Last BM Date: 01/09/23 Vitals: BP: 104/64, MAP (mmHg): 77, BP Method: Automatic Heart Rate: 74 Resp: 16 Temp: 36.8 C (98.2 F), Temp Source: Temporal BMI (Calculated): 31.28 Physical Exam Cardiovascular: Rate and Rhythm: Normal rate and regular rhythm. Heart sounds: Normal heart sounds. No murmur heard. No friction rub. Pulmonary: Effort: Pulmonary effort is normal. Skin: General: Skin is warm and dry. Capillary Refill: Capillary refill takes less than 2 seconds. Findings: Bruising and ecchymosis present. Comments: Surgical Incisions: well approximate; clean dry with no drainage noted. Surrounding skin no redness, warmth, or signs of infection noted. Neurological: Mental Status: She is alert. Psychiatric: Behavior: Behavior is cooperative. Assessment: CAD s/p PCI now s/p CABGx3 CHF T2DM HLD Epilepsy HTN RA LINA Post operative Pulm Management: Normal Post-operative Course Post-operative Atrial Fibrillation: []Yes [x] No Acute blood loss anemia/consumptive thrombocytopenia Plan: Patient Status: Telemetry Medications as ordered - no changes made ASA, statin, BB, plavix Check POCUS on Right prior to d/c for potential thora Currently on RA hemodynamically stable Endo signed off PT/OT: 01/09 IPR, SNF Pulmonary hygiene: IS and Acapella GI prophy: PO protonix DVT prophy:TEDs, SCDs, and Heparin SubQ Disposition: [facility] pending precert. Likely thu or thursday Central Line: []Yes [x] No Arterial Line: []Yes [x] No Araya: []Yes [x] No Restraints: []Yes [x] No Patient discussed and plan of day developed from multidisciplinary rounds between Cardiothoracic Surgery (Cardiothoracic Surgeon, SONYA) and Critical Care Attending Cardiac Core Medications: ASA, Plavix, Statin, and BB EF: normal 01/01/23 Blood Conservation: Transfused postoperatively Plug Sorter: [facility] Physical Therapy Facility/Department: [facility] Physical Therapy Daily Treatment Note NAME: Lacy Alvarado : 1950 Date of Service: 01/09/2023 Discharge Recommendations: IP Rehab, Shelter Facility PT Equipment Recommendations Equipment Needed: No Assessment Requires PT Follow-Up: Yes Assessment: Pt presents with the listed deficits and improved functional mobility this date. PT goals progressing. Able to recall all sternal precautions. Able to maintain sternal precautions throughout. Transfers femo'd SBA from various surfaces with anterior wt shift and momentum required to complete. Pt ambulated 355ft with 2 seated rest breaks this date. Reports fatigue, SOB and incisional pain. RN aware. Cues for pursed lip breathing required throughout. Increased time required for all task completion. Pt remains a fall risk with limited endurance and must be able to complete 3 flights of stairs to return home and enter her apartment. She also lives alone and has no assist available PRN. Pt will require increased time and physical assistance to complete 3 flights. Without assist, she is a fall risk and is not safe to return home at this time. Recommend IP Rehab vs SNF at discharge for improved endurance and strength to complete stairs safely with [place] to avoid a fall. Performance Deficits/Impairments: Decreased functional mobility , Decreased endurance, Increased pain, Decreased ADL status, Decreased strength, Decreased posture, Decreased balance Patient Diagnosis(es): The primary encounter diagnosis was CAD in [place] artery. A diagnosis of Coronary artery disease involving coronary bypass graft, unspecified whether angina present, unspecified whether [place] or transplanted heart was also pertinent to this visit. has a past medical history of CHF (congestive heart failure) (CMS/HCC) ([facility]), Diabetes mellitus (HCC), GERD (gastroesophageal reflux disease), Hyperlipidemia, Hypertension, RA (rheumatoid arthritis) ([facility]), Seizure (HCC), Seizures ([facility]), and Sleep apnea. has a past surgical history that includes Cardiac catheterization; Coronary stent placement (03/22/2018); Hysterectomy; and Colonoscopy. Restrictions Restrictions/Precautions Restrictions/Precautions: General Precautions, Surgical Protocols Required Braces or Orthoses?: No Position Activity Restriction Sternal Precautions: No Pushing, No Pulling, 10# Lifting Restrictions Sternal Precautions: Yes Other position/activity restrictions: tele Vision/Hearing Subjective General Chart Reviewed: Yes Patient Assessed for Rehabilitation Services: Yes Response To Previous Treatment: Patient with no complaints from previous session. Family / Caregiver Present: No Diagnosis: CAD in [place] artery s/p CABG on 01/01 Follows Commands: Within Functional Limits Subjective Subjective: Pt sitting in recliner. Agreeable to PT. RN cleared for treatment. Pt reports feling better today. Reports incisional chest pain but does not rate. Reports upset d/t passing of her sister which she learned of today. RN aware. Patient Stated Goal: to get strong enough to go home Cognition/Orientation Overall Cognitive Status: WFL Overall Orientation Status: Within Functional Limits Objective Bed mobility Supine to Sit: Unable to assess Sit to Supine: Unable to assess Comment: SUP for scooting to edge of chair x 3. In recliner pre/post session. Transfers Sit to Stand: Stand by assistance Stand to sit: Stand by assistance Comment: Reviewed sternal precautions. Pt able to recall 3/3. SBA x 4 from various surface heights. Good anterior wt shift. Maintains sternal precautions with and without use of sternal pillow. Denies dizziness. No LOB noted. No instability noted. c/o fatigue with increased mobility. Ambulation Ambulation: Yes Ambulation 1 Surface 1: Level tile Device 1: Rollator Assistance 1: Standby assistance Quality of Gait 1: slow derrick, shuffling, No LOB Quality of Gait Comment 1: shuffle, guarded posture, Distance (ft) 1: 355ft total - 2 seated rest breaks Comments 1: Increase in pace today compared to prior session but continues to be slower than normal pace. Reported fatigue and SOB with progressive ambulation. x 2 seated rest breaks. Cues for pursed lip breathing. No LOB. Increased time required. Cues for pursed lip breathing throughout. Plan Times per Week: 5-7 Plan Weeks: 3 Current Treatment Recommendations: Strengthening, ROM, Balance Training, Functional Mobility Training, Transfer Training, ADL/Self-care Training, Stair training, Gait Training, Endurance Training, Safety Education & Training, Home Exercise Program, Equipment Evaluation, Education, & procurement, Patient/Caregiver Education & Training Safety Safety Devices Safety Devices in Place: Yes Type of Devices: Left in chair, Call light within reach, No alarms engaged upon entry into room, Nurse notified, Gait belt Restraints Restraints Initially in Place: No AM-PAC Score AM-PAC Inpatient Mobility Raw Score (No Stairs) : 13 Goals Encounter Problems Encounter Problems (Active) Cardiac Patient will perform bed mobility with independence in order to improve independence and prepare for out of bed mobility. (Not Addressed) Start: 01/02/23 Expected End: 01/23/23 Patient will complete sit to stand transfer with independence to LRD in order to improve safety and prepare for out of bed mobility. (Progressing) Start: 01/02/23 Expected End: 01/23/23 Patient will ambulate 150 feet or ambulate 5 minutes with independence with RPE of 14 or lower. (Progressing) Start: 01/02/23 Expected End: 01/23/23 Patient will ascend and descend 3 flights of stairs with independence rail for balance only. (Not Addressed) Start: 01/02/23 Expected End: 01/23/23 Patient will be independent with P&C exercises. (Not Addressed) Start: 01/02/23 Expected End: 01/23/23 Patient will be independent with managing secretions and home walking program. (Not Addressed) Start: 01/02/23 Expected End: 01/23/23 Education Education Given To: Patient Education Provided: Goals, PT Role, Plan of Care, Precautions, Gait Training, Transfer Training, Home Exercise Program, Energy Conservation, Discharge recommendations Education Provided Comments: sternal precuations, performing P&C's Indep daily. Ambulating with staff multiple times daily. Stair training Education Method: Verbal Barriers to Learning: None Education Outcome: Verbalized understanding Therapy Time Individual Co-treatment Time In 1205 Time Out 1235 Minutes 30 Timed Code Treatment Minutes: 30 Minutes (FA, GT) CYBER INCIDENT ANALYST wore PPE in compliance with hospital guidelines and regulation when treating this patient. Samaria Li, CYBER INCIDENT ANALYST Images from the original note were not included. Cardiothoracic Surgery/[facility] Progress Note PATIENT NAME: Lacy Alvarado DATE: 01/09/23 HPI: 72 y.o. female was referred by Dr. Bhanu Milian. 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 Patient also had an echo done which showed mild (1+) tricuspid valve insufficiency. She presents for CABG from the OP setting Surgery/Procedure: 01/01/23: CABGx3 with Dr. Rose Interval History: 01/09/23, POD# 8: VSS on RA; up moving around with nursing. Voiding appropriately. SNF pending -->would like [facility] if able. Review of Systems Constitutional: Negative for diaphoresis, fatigue and fever. Respiratory: Negative for cough, shortness of breath and wheezing. Cardiovascular: Negative for chest pain, palpitations and leg swelling. Gastrointestinal: Negative for abdominal distention, constipation and diarrhea. Skin: Negative for color change, pallor and rash. Objective: Last BM Date: 01/09/23 Vitals: BP: 110/59, MAP (mmHg): 75, BP Method: Automatic Heart Rate: 80 Resp: 16 Temp: 36.5 C (97.7 F), Temp Source: Temporal BMI (Calculated): 31.31 CXR: BMP: Recent Labs 01/07/23 0247 NA 137 K 4.2 CL 101 CO2 27 BUN 30* CREATININE 0.91 CALCIUM 8.5 MG 2.4* CBC: Recent Labs 01/07/23 0247 WBC 5.4 HGB 10.3* HCT 30.0* PLT 162 MCV 93.7 RDW 15.8* Physical Exam Cardiovascular: Rate and Rhythm: Normal rate and regular rhythm. Heart sounds: Normal heart sounds. No murmur heard. No friction rub. Pulmonary: Effort: Pulmonary effort is normal. Skin: General: Skin is warm and dry. Capillary Refill: Capillary refill takes less than 2 seconds. Findings: Bruising and ecchymosis present. Comments: Surgical Incisions: well approximate; clean dry with no drainage noted. Surrounding skin no redness, warmth, or signs of infection noted. Neurological: Mental Status: She is alert. Psychiatric: Behavior: Behavior is cooperative. Assessment: CAD s/p PCI now s/p CABGx3 CHF T2DM HLD Epilepsy HTN RA LINA Post operative Pulm Management: Normal Post-operative Course Post-operative Atrial Fibrillation: []Yes [x] No Acute blood loss anemia/consumptive thrombocytopenia Plan: Patient Status: Telemetry Medications as ordered ASA, statin, BB; resume plavix today Check POCUS on Right prior to d/c for potential thora Endo signed off PT/OT:01/08 IPR, SNF Pulmonary hygiene: IS and Acapella GI prophy: PO protonix DVT prophy:TEDs, SCDs, and Heparin SubQ Disposition: TBD; pending discharge to hopefully [facility]. Central Line: []Yes [x] No Arterial Line: []Yes [x] No Araya: []Yes [x] No Restraints: []Yes [x] No Patient discussed and plan of day developed from multidisciplinary rounds between Cardiothoracic Surgery (Cardiothoracic Surgeon, SONYA) and Critical Care Attending Cardiac Core Medications: ASA, Statin, and BB EF: normal 01/01/23 Blood Conservation: Transfused postoperatively Plug Sorter: [facility] Physical Therapy Facility/Department: [facility] Physical Therapy Daily Treatment Note NAME: Lacy Alvarado : 1950 Date of Service: 01/08/2023 Discharge Recommendations: IP Rehab, Shelter Facility PT Equipment Recommendations Equipment Needed: No Assessment Requires PT Follow-Up: Yes Assessment: Pt presents with the listed deficits and decreased functional mobility. PT goals progressing. Transfers demo'd SBA from various surfaces with momentum required to complete. Ambulation demo'd SBA with Rollator and multiple seated rest breaks d/t fatigue. Stair Training completed with single HR and non-reciprocal gait. Required SBA/CGA for safety as pt fatigued. Required seated rest break after ascend/descend of 8 steps. Pt reports SOB but no signs and symptoms noted. Provided cues for pursed lip breathing throughout. SpO2 >97% at all times on RA. P and C exercises completed for healing and improved ROM. Increased time required for all task completion. Pt remains a fall risk with limited endurance and must be able to complete 3 flights of stairs to return home and enter her apartment. She also lives alone and has no assist available PRN. Pt will require increased time and physical assistance to complete 3 flights. Without assist, she is a fall risk and is not safe to return home at this time. Recommend IP Rehab vs SNF at discharge for improved endurance and strength to complete stairs safely with [place] to avoid a fall. Performance Deficits/Impairments: Decreased functional mobility , Decreased endurance, Increased pain, Decreased ADL status, Decreased strength, Decreased posture, Decreased balance Treatment Diagnosis: limited mobility Decision Making: Medium Complexity Patient Diagnosis(es): The primary encounter diagnosis was CAD in [place] artery. A diagnosis of Coronary artery disease involving coronary bypass graft, unspecified whether angina present, unspecified whether [place] or transplanted heart was also pertinent to this visit. has a past medical history of CHF (congestive heart failure) ([facility]/HCC) ([facility]LY [facility]), Diabetes mellitus ([facility]), GERD (gastroesophageal reflux disease), Hyperlipidemia, Hypertension, RA (rheumatoid arthritis) ([facility]), Seizure ([facility]), Seizures ([facility]), and Sleep apnea. has a past surgical history that includes Cardiac catheterization; Coronary stent placement (03/22/2018); Hysterectomy; and Colonoscopy. Restrictions Restrictions/Precautions Restrictions/Precautions: General Precautions, Surgical Protocols Required Braces or Orthoses?: No Position Activity Restriction Sternal Precautions: No Pushing, No Pulling, 10# Lifting Restrictions Sternal Precautions: Yes Other position/activity restrictions: tele Vision/Hearing Subjective General Chart Reviewed: Yes Patient Assessed for Rehabilitation Services: Yes Response To Previous Treatment: Patient with no complaints from previous session. Family / Caregiver Present: No Diagnosis: CAD in [place] artery s/p CABG on 01/01 Follows Commands: Within Functional Limits Subjective Subjective: Pt sitting in recliner. Agreeable to PT. RN cleared for treatment. Pt reports feling better today. Reports incisional chest pain but does not rate. RN aware. Patient Stated Goal: to get strong enough to go home Cognition/Orientation Overall Cognitive Status: WFL Overall Orientation Status: Within Functional Limits Objective Bed mobility Supine to Sit: Unable to assess Sit to Supine: Unable to assess Scooting: Supervision Comment: SUP for scooting to edge of chair x 3. In recliner pre/post session. Transfers Sit to Stand: Stand by assistance Stand to sit: Stand by assistance Comment: SBA x 5 from various surfaces and surface heights. Good anterior wt shift and use of sternal pillow. Pt able to maintain sternal precautions without cueing throughout. Pt reports SOBOE but no visible signs noted. Cues for pursed lip breathing throughout. SpO2 97% throughout. Denies dizziness. No LOB noted. Pt with increasing steadiness noted with each transfer. SBA for safety. Ambulation Ambulation: Yes Ambulation 1 Surface 1: Level tile Device 1: Rollator Assistance 1: Standby assistance Quality of Gait 1: slow derrick, shuffling, No LOB Quality of Gait Comment 1: shuffle, guarded posture, Distance (ft) 1: 120ft x 2, 160ft Comments 1: increase in pace today compared to prior session but continues to be slower than ormal pace. Reported fatigue and SOB with progressive ambulation. x 2 seated rest breaks. No LOB. Increased tmie required. Cues for pursed lip breathing throughout. Stairs Rails 1: Right Device 1: No device Additional Factors: Non-reciprocal going up, Non-reciprocal going down, Hand placement cues (Cues for HR use for balance not to pull self up (Maintaining precautions)) Assistance 1: Standby assistance, Contact guard Number of Steps 1: 8 steps Comment 1: 4 steps acending/descending x 2. Required seated rest break following 8 steps. Cues for pursed lip breathing. Pt with increased fatigue with mobility Balance Comments: SUP for anterior david-care in sitting on toilet. Standing balance SBA for standing hand hygiene and brushing teeth. Denies dizziness. No LOB. Standing balance ~ 4 min or ADL's reaching outside NELIA. Exercises Upper Extremity: P&C's 1-9 x 8 each Comments: IS x 10 - 750mL Plan Times per Week: 5-7 Plan Weeks: 3 Current Treatment Recommendations: Strengthening, ROM, Balance Training, Functional Mobility Training, Transfer Training, ADL/Self-care Training, Stair training, Gait Training, Endurance Training, Safety Education & Training, Home Exercise Program, Equipment Evaluation, Education, & procurement, Patient/Caregiver Education & Training Safety Safety Devices Safety Devices in Place: Yes Type of Devices: Left in chair, Call light within reach, No alarms engaged upon entry into room, Nurse notified, Gait belt Restraints Restraints Initially in Place: No AM-PAC Score AM-PAC Inpatient Mobility Raw Score : 16 AM-PAC Inpatient Mobility Raw Score (No Stairs) : 13 Goals Encounter Problems Encounter Problems (Active) Cardiac Patient will perform bed mobility with independence in order to improve independence and prepare for out of bed mobility. (Not Addressed) Start: 01/02/23 Expected End: 01/23/23 Patient will complete sit to stand transfer with independence to LRD in order to improve safety and prepare for out of bed mobility. (Progressing) Start: 01/02/23 Expected End: 01/23/23 Patient will ambulate 150 feet or ambulate 5 minutes with independence with RPE of 14 or lower. (Progressing) Start: 01/02/23 Expected End: 01/23/23 Patient will ascend and descend 3 flights of stairs with independence rail for balance only. (Progressing) Start: 01/02/23 Expected End: 01/23/23 Patient will be independent with P&C exercises. (Progressing) Start: 01/02/23 Expected End: 01/23/23 Patient will be independent with managing secretions and home walking program. (Progressing) Start: 01/02/23 Expected End: 01/23/23 Education Education Given To: Patient Education Provided: Goals, PT Role, Plan of Care, Precautions, Gait Training, Transfer Training, Home Exercise Program, Energy Conservation, Discharge recommendations Education Provided Comments: sternal precuations, performing P&C's Indep daily. Ambulating with staff multiple times daily. Stair training Education Method: Verbal Barriers to Learning: None Education Outcome: Verbalized understanding Therapy Time Individual Co-treatment Time In 838 Time Out 09 Minutes 39 Timed Code Treatment Minutes: 39 Minutes (FA, GT. TP) CYBER INCIDENT ANALYST wore PPE in compliance with hospital guidelines and regulation when treating this patient. Samaria Li, CYBER INCIDENT ANALYST Images from the original note were not included. Cardiothoracic Surgery/[facility] Progress Note PATIENT NAME: Lacy Alvarado DATE: 01/08/23 HPI: 72 y.o. female was referred by Dr. Bhanu Milian. 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 Patient also had an echo done which showed mild (1+) tricuspid valve insufficiency. She presents for CABG from the OP setting Surgery/Procedure: 01/01/23: Dr. Rose- CABGx3 Interval History: 01/08/23, POD# 07: Afebrile, NSR on tele, BP stable, on RA. No labs ordered for this AM. Patient unfortunately denied IPR, does not want SNF. Sitting up in chair this AM. No complaints. Conversations ongoing with family about living arrangements at [place]. Review of Systems Constitutional: Negative for chills, diaphoresis, fatigue and fever. Respiratory: Negative for cough, shortness of breath and wheezing. Cardiovascular: Negative for chest pain and palpitations. Gastrointestinal: Negative for abdominal distention, abdominal pain, nausea and vomiting. Neurological: Negative for dizziness, syncope and light-headedness. Objective: Last BM Date: 01/06/23 Vitals: BP: 119/63, MAP (mmHg): 80, BP Method: Automatic Heart Rate: 73 Resp: 18 Temp: 36 C (96.8 F), Temp Source: Temporal BMI (Calculated): 31.29 BMP: Recent Labs 01/06/23 0034 01/07/23246 NA 136 137 K 3.9 4.2 CL 98 101 CO2 27 27 BUN 39* 30* CREATININE 0.99 0.91 CALCIUM 8.6 8.5 MG 2.7* 2.4* CBC: Recent Labs 01/06/23 0034 01/07/23246 WBC 5.6 5.4 HGB 10.2* 10.3* HCT 30.7* 30.0* PLT 141 162 MCV 95.3 93.7 RDW 16.2* 15.8* INR: No results for input(s): INR in the last 72 hours. Physical Exam Vitals reviewed. Constitutional: General: She is not in acute distress. Appearance: She is not ill-appearing or diaphoretic. Cardiovascular: Rate and Rhythm: Normal rate and regular rhythm. Pulses: Normal pulses. Heart sounds: No murmur heard. Pulmonary: Effort: Pulmonary effort is normal. Breath sounds: No wheezing, rhonchi or rales. Abdominal: General: Abdomen is flat. Bowel sounds are normal. There is no distension. Palpations: Abdomen is soft. Tenderness: There is no abdominal tenderness. Skin: General: Skin is warm. Capillary Refill: Capillary refill takes less than 2 seconds. Comments: MSI well approximated. No redness, warmth or drainage noted. Neurological: General: No focal deficit present. Mental Status: She is alert and oriented to person, place, and time. Psychiatric: Mood and Affect: Mood normal. Behavior: Behavior normal. Thought Content: Thought content normal. Judgment: Judgment normal. Assessment: CAD s/p CABG (previous stent) CHF T2DM HLD Epilepsy HTN RA LINA Post operative Pulm Management: Normal Post-operative Course Post-operative Atrial Fibrillation: []Yes [x] No Acute blood loss anemia/consumptive thrombocytopenia Plan: Patient Status: Telemetry Continue aspirin, statin and BB. Restart Plavix at DC. Continue to monitor R effusion with daily xray. Will plan to tap on day of DC. Patient stable on RA. Home meds: Depakote & Duloxetine Endocrine following for insulin needs PT/OT:IPR (01/07/23) Progressive mobility, out of bed for meals. Pulmonary hygiene: IS and Acapella GI prophy: PO protonix DVT prophy:TEDs, SCDs, and Heparin SubQ Disposition: Patient stable for DC. Denied IPR. Plan for Home with assist. Working with family on timing. Thursday vs Thursday. Central Line: []Yes [x] No Arterial Line: []Yes [x] No Araya: []Yes [x] No Restraints: []Yes [x] No Patient discussed and plan of day developed from multidisciplinary rounds between Cardiothoracic Surgery (Cardiothoracic Surgeon, SONYA) and Critical Care Attending Cardiac Core Medications: ASA, Statin, and BB EF: Normal (01/01/23) Blood Conservation: Transfused post-op. Plug Sorter: [facility] Nutrition Assessment Type and Reason for Visit: Reassess Nutrition Recommendations/Plan: Suggest liberalizing diet to regular diet to promote p.o. intake. Pt is not eating enough to meet carbohydrate limit Per MNT protocol, will order Ensure HP TID to promote p.o. intake and postop healing (160 kcal, 16 g protein, 8 oz each) Pt was provided with heart healthy diet handout with [facility] RD phone number at initial assessment. Will add diet instruction to discharge instructions as well. 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 Pt underwent CABG x 4 01/01. Pt is sitting up in chair, sleeping at time of RD visit. She does not awaken to name call x3. Meal tray is observed on bedside table with small breakfast odered, ~50% consumed (two slices of rod and a bagel). P.o. intake is documented for three meals, all with <25% consumed. Estimated Daily Nutrient Needs: Energy Requirements Based On: Kcal/kg Weight Used for Energy Requirements: Arnold (25-30 kcal/kg) Weight for Energy Calculation (kg): 50 kg Total Energy Requirements (kcals/day): 7626-0549 Weight Used for Protein Requirements: Arnold (1.2-1.5 g/kg) Weight in Kg Used for Protein Requirements: 50 kg Estimated Total Protein (g/day): 60-75 Estimated Daily Total Fluid (ml/day): per MD Nutrition Related Findings: Nutrition History: Independent of feeding. Lives with: Extended family members Teeth: Missing teeth GI symptoms: Unable to assess at this time. Magdy Scale Score: 19 .Wound Type: Multiple, Surgical Incision Net IO Since Admission: -397.2 mL [01/07/23 1318] Edema: RUE Edema: Mild, LUE Edema: Mild, RLE Edema: Mild pitting, slight indentation, LLE Edema: Mild pitting, slight indentation Bowel Sounds (All Quadrants): Active Abdomen Inspection: Soft, Rounded, Nondistended Last BM Date: 01/06/23 Labs and meds reviewed: acetaminophen, 1,000 mg, Oral, q8h aspirin, 81 mg, Oral, Daily atorvastatin, 80 mg, Oral, Daily chlorhexidine, 15 mL, Mouth/Throat, BID divalproex, 1,250 mg, Oral, Nightly divalproex, 500 mg, Oral, q AM DULoxetine, 30 mg, Oral, Daily heparin, 5,000 Units, SubCUTAneous, BID insulin lispro, 0-6 Units, SubCUTAneous, TID WC Lidocaine, 1 patch, Topical, Daily magnesium hydroxide, 30 mL, Oral, Daily metoprolol tartrate, 50 mg, Oral, BID pantoprazole, 40 mg, Oral, qAM AC polyethylene glycol (PEG) 3350, 17 g, Oral, Daily senna-docusate sodium, 2 tablet, Oral, Nightly BMP: Recent Labs 01/05/23 0041 01/06/23 0034 01/07/23 0247 NA 137 136 137 K 3.8 3.9 4.2 CL 98 98 101 CO2 27 27 27 BUN 43* 39* 30* CREATININE 1.25* 0.99 0.91 GLUCOSE 98 95 83 CALCIUM 8.5 8.6 8.5 MG 2.8* 2.7* 2.4* Recent Labs 01/04/23 1856 01/05/23 0858 01/05/23 1627 01/06/23 0741 01/06/23 1401 01/06/23 1826 POCGLU 116* 110* 105* 109* 97 106* Lab Results Component Value Date HGBA1C 6.7 (H) 12/29/2022 Current Nutrition Therapies: Adult diet Regular; 5 carb choices (75 gm/meal) Current Oral Intake Average Meal Intake: 26-50% (small meal, per observation) Average Supplements Intake: None Ordered Anthropometric Measures: Height: 157.5 cm (5' 2 ) Current Body Weight: 77.6 kg (171 lb 1.6 oz) (01/07) Admission Body Weight: 78 kg (172 lb) (no method) Arnold Body Weight (lbs) (Calculated): 110 lbs Arnold Body Weight (Kg) (Calculated): 50 kg % Arnold Body Weight (Calculated): 157.9 % BMI (kg/m2) (Calculated): 31.3 BMI Categories: Obese Class 1 (BMI 30.0-34.9) Wt Readings from Last 10 Encounters: 01/07/23 77.6 kg (171 lb 1.6 oz) 12/29/22 78 kg (172 lb) 12/23/22 77.3 kg (170 lb 6.4 oz) Nutrition Diagnosis: Increased nutrient needs related to increase demand for energy/nutrients as evidenced by wounds (surgical) Nutrition Interventions: Food and/or Nutrient Delivery: Modify Current Diet, Start Oral Nutrition Supplement Nutrition Education/Counseling: Education needed, Education initiated Coordination of Nutrition Care: Continue to monitor while inpatient Goals: Goals: PO intake 75% or greater, prior to discharge Nutrition Monitoring and Evaluation: Behavioral-Environmental Outcomes: Knowledge or Skill Food/Nutrient Intake Outcomes: Food and Nutrient Intake, Supplement Intake Physical Signs/Symptoms Outcomes: Biochemical Data, GI Status, Fluid Status or Edema, Nutrition Focused Physical Findings, Skin, Weight Discharge Planning: Too soon to determine Talita Haque RD, LD Contact: *[phone] or via [employer] chat Department of Internal Medicine Division of Endocrinology, Diabetes, & Metabolism Endocrinology Note Patient Name: Lacy Alvarado : 1950 AGE: 72 y.o. 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 We will sign off at this time. If the patient develops consistently elevated blood sugars >150 mg/dL in chemistry for 2 consecutive days, please contact our inpatient consultation team for reevaluation. ICU goal <180 GMF goal <150 POCT achs Hypoglycemia per protocol Carb controlled diet ANTICIPATED ENDOCRINE HOME GOING RECOMMENDATIONS: Optimized for Discharge from Endocrine standpoint: Yes Home Going Endocrine Rx Recommendations-- Restart Januvia 100 mg once daily on discharge as long as gfr is >45 Can discuss about SGLT 2 inhibitor /GLP 1 as outpatient for added cardioprotection Outpt Follow Up-- PCP SUBJECTIVE/HPI: CHIEF COMPLAINT: No chief complaint on file. Cabgx4 Patient up in recliner Appetite remains on lower side Endorses to some nausea , No vomiting or Abdominal pain Type of DM: 2 Onset of DM: ~5 years ( was on Metformin initially but did not tolerate) Home DM Medication Regimen: januvia 100 mg po daily DM control (last A1c/glucose data): Lab Results Component Value Date HGBA1C 6.7 (H) 12/29/2022 Glucose Date/Time Value Ref Range Status 01/06/2023 06:26 PM 106 (H) 70 - 100 mg/dL Final 01/06/2023 02:01 PM 97 70 - 100 mg/dL Final 01/06/2023 07:41 AM 109 (H) 70 - 100 mg/dL Final 01/05/2023 04:27 PM 105 (H) 70 - 100 mg/dL Final 01/05/2023 08:58 AM 110 (H) 70 - 100 mg/dL Final 01/04/2023 06:56 PM 116 (H) 70 - 100 mg/dL Final Review of Systems ROS negative except for those mentioned in HPI. OBJECTIVE: Vitals: 01/07/23 0300 01/07/23 0400 01/07/23 0600 01/07/23 0800 BP: 117/67 115/69 BP Location: Right arm Right arm Patient Position: Lying Sitting Pulse: 81 77 79 Resp: 18 16 Temp: 37 C (98.6 F) 36.1 C (97 F) TempSrc: Temporal Temporal SpO2: 98% 94% 94% Weight: 171 lb 1.6 oz (77.6 kg) Height: Physical Exam Vitals and nursing note reviewed. Constitutional: General: She is awake. Appearance: She is obese. HENT: Head: Normocephalic. Cardiovascular: Rate and Rhythm: Normal rate and regular rhythm. Pulmonary: Effort: Pulmonary effort is normal. No respiratory distress. Breath sounds: Normal breath sounds. Abdominal: General: There is no distension. Palpations: Abdomen is soft. Tenderness: There is no abdominal tenderness. Musculoskeletal: Right lower leg: Edema (trace) present. Left lower leg: Edema (trace) present. Skin: General: Skin is warm and dry. Comments: Sternal incision clean and dry Psychiatric: Mood and Affect: Mood normal. Behavior: Behavior normal. Behavior is cooperative. 24 hour intake/output: Intake/Output Summary (Last 24 hours) at 01/07/2023 1103 Last data filed at 01/07/2023 0815 Gross per 24 hour Intake 120 ml Output 800 ml Net -680 ml Diet: Adult diet Regular; 5 carb choices (75 gm/meal) Medications (as per EMR): HomeMeds: Current Outpatient Medications Medication Instructions aspirin 81 mg, Oral, Daily atorvastatin (LIPITOR) 80 mg, Oral, Daily calcium citrate (CALCITRATE) 950 mg, Oral, Daily carvedilol (Coreg) 12.5 MG tablet Oral, 2 times daily with meals clopidogrel (PLAVIX) 75 mg, Oral, Daily divalproex (DEPAKOTE) 1,000 mg, Oral, 2 times daily, 1,000 mg in am and 1,200 mg in evening DULoxetine (CYMBALTA) 30 mg, Oral, Daily, Do not crush or chew. hydroxychloroquine (PLAQUENIL) 200 mg, Oral, 2 times daily isosorbide mononitrate ER (IMDUR) 60 mg, Oral, Daily, Do not crush or chew. losartan (COZAAR) 50 mg, Oral, 2 times daily Multiple Vitamin (multivitamin) capsule 1 capsule, Oral, Daily mupirocin (Bactroban) 2 % ointment Apply liberal amount per nostril the night before surgery and then again the morning of surgery pantoprazole (PROTONIX) 40 mg, Oral, Daily before breakfast, Do not crush, chew, or split. polyethylene glycol (PEG) 3350 (MIRALAX) 17 g, Oral, Daily SITagliptin (JANUVIA) 100 mg, Oral, Daily traMADol (ULTRAM) 50 mg, Oral Scheduled Meds:acetaminophen, 1,000 mg, Oral, q8h aspirin, 81 mg, Oral, Daily atorvastatin, 80 mg, Oral, Daily chlorhexidine, 15 mL, Mouth/Throat, BID divalproex, 1,250 mg, Oral, Nightly divalproex, 500 mg, Oral, q AM DULoxetine, 30 mg, Oral, Daily heparin, 5,000 Units, SubCUTAneous, BID insulin lispro, 0-6 Units, SubCUTAneous, TID WC Lidocaine, 1 patch, Topical, Daily magnesium hydroxide, 30 mL, Oral, Daily metoprolol tartrate, 50 mg, Oral, BID pantoprazole, 40 mg, Oral, qAM AC polyethylene glycol (PEG) 3350, 17 g, Oral, Daily senna-docusate sodium, 2 tablet, Oral, Nightly Continuous Infusions: PRN Meds:PRN medications: calcium gluconate, dextrose, dextrose, glucagon (rDNA), glucose, ipratropium-albuterol, magnesium sulfate OR magnesium sulfate, ondansetron ODT OR ondansetron, oxyCODONE OR [DISCONTINUED] oxyCODONE, potassium chloride OR potassium chloride 20 mEq in sodium chloride 0.9 % 250 mL IVPB OR potassium chloride 40 mEq in sodium chloride 0.9 % 500 mL IVPB, potassium chloride CR, sodium chloride Diagnostic Workup: I reviewed pertinent Laboratory results, Radiographic results, and Other Clinical Notes at the time of today's encounter. Labs: No components found for: LABA1C No components found for: EAG Lab Results Component Value Date NA 137 01/07/2023 K 4.2 01/07/2023 CL 101 01/07/2023 CO2 27 01/07/2023 BUN 30 (H) 01/07/2023 CREATININE 0.91 01/07/2023 GLUCOSE 83 01/07/2023 CALCIUM 8.5 01/07/2023 No results found for: CHLPL, CHOL No results found for: TRIG No results found for: HDL No results found for: LDLCALC No results found for: VLDL No results found for: CHOLHDLRATIO No results found for: [id number] No results found for: TSH, [id number], [id number], THYROIDAB Radiology reportsas per the Radiologist Radiology: ECG 12 lead Result Date: 01/01/2023 Sinus rhythm History/Other: Past Medical History: Past Medical History: Diagnosis Date CHF (congestive heart failure) (CMS/HCC) (HCC) Diabetes mellitus (HCC) GERD (gastroesophageal reflux disease) Hyperlipidemia Hypertension RA (rheumatoid arthritis) (HCC) Seizure (HCC) last seizure 5 months ago gand mal 08/24 Seizures (HCC) Sleep apnea Past Surgical History: Past Surgical History: Procedure Laterality Date CARDIAC CATHETERIZATION COLONOSCOPY CORONARY STENT PLACEMENT 03/22/2018 HYSTERECTOMY Allergy(ies): Allergies Allergen Reactions Prednisone Hives and Nausea And Vomiting Family History: No family history on file. Social History: Social History Tobacco Use Smoking status: Never Smokeless tobacco: Never Vaping Use Vaping Use: Never used Substance Use Topics Alcohol use: Yes Comment: once a year Drug use: Never Portions of the information within this encounter were entered using an electronic dictation system. Best attempts were made to edit/proofread the information prior to note completion. Despite the review of information, some errors may remain. If there are questions related to the information contained within the note please contact the signing physician directly. I spent 25 minutes with the pt which involved coordination of care, medical evaluation, review of records, and/or counseling of the pt regarding his/her condition/disease state/prognosis on the date of this note. Physical Therapy Facility/Department: [facility] Physical Therapy Daily Treatment Note NAME: Lacy Alvarado : 1950 Date of Service: 01/07/2023 Discharge Recommendations: IP Rehab, Shelter Facility PT Equipment Recommendations Equipment Needed: No Assessment Requires PT Follow-Up: Yes Assessment: Pt presents with the listed deficits and decreaswed functional mobility. PT goals progressing. Transfers demo'd SBA and CGA when fatigued, from various surfaces with momentum required to complete. Ambulation demo'd SBA with Rollator and multiple seated rest breaks d/t fatigue. Stair Training completed with single HR and non-reciprocal gait. Required SBA/CGA for safety as pt fatigued. required seated rest breaks between ascend/descend of 4 steps. Pt reports SOB but no signs and symptoms noted. Providedh cues for pursed lip breathing throughout. SpO2 >97% at all times on RA. HR following session 165 with recovery into 90's within 1 minute of sitting. Increased time required for all task completion. Pt remains a fall risk with limited endurance and must be able to complete 3 flights of stairs to return home and enter her apartment. Pt will require increased time and physical assistance to complete 3 flights. Recommend IP Rehab vs SNF at discharge for improved endurance and strength to complete stairs safely and avoid a fall. Performance Deficits/Impairments: Decreased functional mobility , Decreased endurance, Increased pain, Decreased ADL status, Decreased strength, Decreased posture, Decreased balance Patient Diagnosis(es): The primary encounter diagnosis was CAD in [place] artery. A diagnosis of Coronary artery disease involving coronary bypass graft, unspecified whether angina present, unspecified whether [place] or transplanted heart was also pertinent to this visit. has a past medical history of CHF (congestive heart failure) ([facility]/HCC) ([facility]), Diabetes mellitus ([facility]), GERD (gastroesophageal reflux disease), Hyperlipidemia, Hypertension, RA (rheumatoid arthritis) ([facility]), Seizure ([facility]), Seizures ([facility]), and Sleep apnea. has a past surgical history that includes Cardiac catheterization; Coronary stent placement (03/22/2018); Hysterectomy; and Colonoscopy. Restrictions Restrictions/Precautions Restrictions/Precautions: General Precautions, Surgical Protocols Required Braces or Orthoses?: No Position Activity Restriction Sternal Precautions: No Pushing, No Pulling, 10# Lifting Restrictions Sternal Precautions: Yes Other position/activity restrictions: tele, PIV, Vision/Hearing Subjective General Chart Reviewed: Yes Patient Assessed for Rehabilitation Services: Yes Response To Previous Treatment: Patient with no complaints from previous session. Family / Caregiver Present: No Diagnosis: CAD in [place] artery s/p CABG on 01/01 Follows Commands: Within Functional Limits Subjective Subjective: Pt sitting in recliner. Agreeable to PT. RN cleared for treatment. Pt reports SOB with activity and minimal incisional pain but does not rate. Overall feeling tired. Patient Stated Goal: to get strong enough to go home Cognition/Orientation Overall Cognitive Status: WFL Overall Orientation Status: Within Functional Limits Objective Bed mobility Supine to Sit: Unable to assess Sit to Supine: Unable to assess Scooting: Supervision Comment: SUP for scooting to the edge of the chair x 3. Pt in chair pre/post session Transfers Sit to Stand: Stand by assistance Stand to sit: Stand by assistance Comment: SBA/CGA as pt fatigued x 8 from various surface heights. Good anterior wt shift and use of sternal pillow. Pt able to maintain sternal precautions with cues throughout. Increaswed time required. Frequent and extended rest breaks. Pt reports SOBOE but no visible signs noted. Cues for pursed lip breathing throughout. SpO2 97% throughout. Denies dizziness. No LOB noted. General unsteadiness observed, requiring overall SBA for safety. Ambulation Ambulation: Yes Ambulation 1 Surface 1: Level tile Device 1: Rollator Assistance 1: Standby assistance, Contact guard Quality of Gait 1: slow derrick, shuffling Quality of Gait Comment 1: shuffle, guarded posture, Distance (ft) 1: 100ft x 4 with 4 seated rest breaks. Comments 1: Slow paced. Reported SOB with progressive ambulation. Upon returning to the room, SpO2 >97% on RA and pulse 165. No LOB. Increased tmie required. Cues for pursed lip breathing throughout. Stairs Rails 1: Right Device 1: No device Additional Factors: Non-reciprocal going up, Non-reciprocal going down, Hand placement cues (Cues for HR use for balance not to pull self up (Maintaining precautions)) Assistance 1: Standby assistance, Contact guard Number of Steps 1: 4 steps x 3 trials Comment 1: Pt completed 12 stairs in total. Required seated rest break following ascend/descend of 4 steps x 3 breaks. Cues for pursed lip breathing. Pt with increased fatigue with mobility Plan Times per Week: 5-7 Plan Weeks: 3 Current Treatment Recommendations: Strengthening, ROM, Balance Training, Functional Mobility Training, Transfer Training, ADL/Self-care Training, Stair training, Gait Training, Endurance Training, Safety Education & Training, Home Exercise Program, Equipment Evaluation, Education, & procurement, Patient/Caregiver Education & Training Safety Safety Devices Safety Devices in Place: Yes Type of Devices: Left in chair, Call light within reach, No alarms engaged upon entry into room, Nurse notified, Gait belt Restraints Restraints Initially in Place: No AM-PAC Score AM-PAC Inpatient Mobility Raw Score : 16 AM-PAC Inpatient Mobility Raw Score (No Stairs) : 13 Goals Encounter Problems Encounter Problems (Active) Cardiac Patient will perform bed mobility with independence in order to improve independence and prepare for out of bed mobility. (Not Addressed) Start: 01/02/23 Expected End: 01/23/23 Patient will complete sit to stand transfer with independence to LRD in order to improve safety and prepare for out of bed mobility. (Progressing) Start: 01/02/23 Expected End: 01/23/23 Patient will ambulate 150 feet or ambulate 5 minutes with independence with RPE of 14 or lower. (Progressing) Start: 01/02/23 Expected End: 01/23/23 Patient will ascend and descend 3 flights of stairs with independence rail for balance only. (Progressing) Start: 01/02/23 Expected End: 01/23/23 Patient will be independent with P&C exercises. (Initiated) Start: 01/02/23 Expected End: 01/23/23 Patient will be independent with managing secretions and home walking program. (Progressing) Start: 01/02/23 Expected End: 01/23/23 Education Education Given To: Patient Education Provided: Goals, PT Role, Plan of Care, Precautions, Gait Training, Transfer Training, Home Exercise Program, Energy Conservation Education Provided Comments: sternal precuations, performing P&C's Indep daily. Ambulating with staff multiple times daily. Stair training Education Method: Verbal Barriers to Learning: None Education Outcome: Verbalized understanding Therapy Time Individual Co-treatment Time In 08 Time Out 0924 Minutes 42 Timed Code Treatment Minutes: 42 Minutes (FA, GT x 2) CYBER INCIDENT ANALYST wore PPE in compliance with hospital guidelines and regulation when treating this patient. Samaria Li PTA Images from the original note were not included. Cardiothoracic Surgery/CCM Progress Note PATIENT NAME: Lacy Alvarado DATE: 01/07/23 HPI: 72 y.o. female was referred by Dr. Bhanu Milian. 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 Patient also had an echo done which showed mild (1+) tricuspid valve insufficiency. She presents for CABG from the OP setting Surgery/Procedure: 01/01/23: Dr. Rose - CABG x 3 Interval History: 01/07/23, POD# 6: VSS overnight, NSR on tele, on RA. Resting in chair, no acute concerns. Discussed d/c plan, too functional for IPR and does not want SNF. Will increase PT and work on steps today. Review of Systems Constitutional: Positive for activity change and fatigue. Negative for diaphoresis and fever. Respiratory: Negative for cough, shortness of breath and wheezing. Cardiovascular: Negative for chest pain, palpitations and leg swelling. Gastrointestinal: Negative for abdominal distention, constipation and diarrhea. Skin: Negative for color change, pallor and rash. Objective: Last BM Date: 01/06/23 Vitals: BP: 117/67, MAP (mmHg): 83, BP Method: Automatic Heart Rate: 77 Resp: 18 Temp: 37 C (98.6 F), Temp Source: Temporal BMI (Calculated): 31.94 CXR: BMP: Recent Labs 01/05/23 0041 01/06/23 0034 01/07/23 0247 NA 137 136 137 K 3.8 3.9 4.2 CL 98 98 101 CO2 27 27 27 BUN 43* 39* 30* CREATININE 1.25* 0.99 0.91 CALCIUM 8.5 8.6 8.5 MG 2.8* 2.7* 2.4* CBC: Recent Labs 01/05/23 0041 01/06/23 0034 01/07/23 0247 WBC 6.7 5.6 5.4 HGB 9.9* 10.2* 10.3* HCT 28.7* 30.7* 30.0* PLT 114* 141 162 MCV 93.5 95.3 93.7 RDW 16.0* 16.2* 15.8* INR: No results for input(s): INR in the last 72 hours. Physical Exam Constitutional: Appearance: She is overweight. Cardiovascular: Rate and Rhythm: Normal rate and regular rhythm. Heart sounds: Normal heart sounds. No murmur heard. No friction rub. Pulmonary: Effort: Pulmonary effort is normal. Breath sounds: Examination of the right-lower field reveals decreased breath sounds. Decreased breath sounds present. No wheezing or rhonchi. Abdominal: General: Bowel sounds are normal. There is no distension. Palpations: Abdomen is soft. Tenderness: There is no abdominal tenderness. Musculoskeletal: Right lower leg: No edema. Left lower leg: No edema. Skin: General: Skin is warm and dry. Capillary Refill: Capillary refill takes less than 2 seconds. Findings: Bruising and ecchymosis present. Comments: Surgical Incisions: well approximate; clean dry with no drainage noted. Surrounding skin no redness, warmth, or signs of infection noted. Neurological: Mental Status: She is alert. Psychiatric: Behavior: Behavior is cooperative. Assessment: CAD s/p CABG (previous stent) CHF T2DM HLD Epilepsy HTN RA LINA Post operative Pulm Management: Normal Post-operative Course Post-operative Atrial Fibrillation: []Yes [x] No Acute blood loss anemia/consumptive thrombocytopenia Plan: Patient Status: Telemetry ASA/Statin Continue BB: Metoprolol 50mg BID Will resume preop Plavix on d/c Continue to monitor R effusion- will tap prior to d/c if needed Home meds: Depakote & Duloxetine Endocrine following for insulin needs PT/OT:IPR (01/06/23) Pulmonary hygiene: IS and Acapella GI prophy: PO protonix DVT prophy:TEDs, SCDs, and Heparin SubQ Disposition: plan for discharge end of week Central Line: []Yes [x] No Arterial Line: []Yes [x] No Araya: []Yes [x] No Restraints: []Yes [x] No Patient discussed and plan of day developed from multidisciplinary rounds between Cardiothoracic Surgery (Cardiothoracic Surgeon, SONYA) and Critical Care Attending Cardiac Core Medications: ASA, Statin, and BB EF: 01/01: Normal Blood Conservation: Transfused postop Plug Sorter: [facility] Occupational Therapy Facility/Department: Occupational Therapy Initial Evaluation NAME: Lacy Alvarado : 1950 Date of Service: 01/06/2023 Discharge Recommendations: IP Rehab OT Equipment Recommendations Equipment Needed: Yes Mobility Devices: ADL Assistive Devices ADL Assistive Devices: Shower Chair with back, Grab Bars - shower Assessment REQUIRES OT FOLLOW-UP: Yes Performance deficits / Impairments: Decreased functional mobility , Decreased strength, Decreased endurance, Decreased ADL status, Decreased safe awareness, Decreased high-level IADLs, Decreased ROM, Decreased balance Assessment: OT eval completed. Pt is s/p CABG 01/01. Pt stated that she lives in a one level apartment and was independent with ADLs previously. Pt stated that she does have to do 3 flights of stairs to get into her apartment. Pt completed LB and UB dressing sitting in chair with SBA. Pt completed sit<>stand transfer with SBA. Pt required cueing to follow sternal precautions with transfers. Pt ambulated in hallway with SBA with rollator. Pt completed toileting with SBA. Pt was able to ambulate from bathroom back to chair with CGA without rollator. Recommend IP rehab. Prognosis: Good Decision Making: Medium Complexity Activity Tolerance Activity Tolerance: Patient Tolerated treatment well Patient Diagnosis(es): The primary encounter diagnosis was CAD in [place] artery. A diagnosis of Coronary artery disease involving coronary bypass graft, unspecified whether angina present, unspecified whether [place] or transplanted heart was also pertinent to this visit. has a past medical history of CHF (congestive heart failure) (CMS/HCC) (FORMERLY [facility]), Diabetes mellitus ([facility]), GERD (gastroesophageal reflux disease), Hyperlipidemia, Hypertension, RA (rheumatoid arthritis) (FORM[facility]LY [facility]), Seizure ([facility]), Seizures ([facility]), and Sleep apnea. has a past surgical history that includes Cardiac catheterization; Coronary stent placement (03/22/2018); Hysterectomy; and Colonoscopy. Restrictions Restrictions/Precautions Restrictions/Precautions: General Precautions, Surgical Protocols Required Braces or Orthoses?: No Position Activity Restriction Sternal Precautions: No Pushing, No Pulling, 10# Lifting Restrictions Sternal Precautions: Yes Other position/activity restrictions: tele Vision/Hearing Vision: Impaired Vision Exceptions: Wears glasses for reading Hearing: Functional/adequate for paticipation in therapy Cognition/Orientation Overall Cognitive Status: WFL Overall Orientation Status: Within Functional Limits Subjective General Patient Assessed for Rehabilitation Services: Yes Family / Caregiver Present: No Patient Stated Goal: Return home Social/Functional History Social/Functional History Lives With: Family (grandson (16)) Type of Home: Apartment Home Layout: One level Home Access: Stairs to enter with rails Entrance Stairs - Number of Steps: 3 flights, pt is on third floor and does not have an elevator Bathroom Shower/Tub: Tub/Shower unit Bathroom Toilet: Standard ADL Assistance: Independent Homemaking Assistance: Independent Homemaking Responsibilities: Yes Ambulation Assistance: Independent With device?: No Transfer Assistance: Independent Objective Balance Sitting Balance: Stand by assistance Standing Balance: Stand by assistance Functional Mobility Functional - Mobility Device: Other (rollator) Activity: Other (around hallway) Assist Level: Stand by assistance Toilet Transfers Toilet - Technique: Ambulating Equipment Used: Standard toilet Toilet Transfer: Stand by assistance ADL UE Dressing: Stand by assistance LE Dressing: Stand by assistance Toileting: Stand by assistance Bed mobility Comment: unable to assess, pt up in chair when entering room Transfers Sit to stand: Stand by assistance Stand to sit: Stand by assistance LUE AROM (degrees) LUE AROM : Exceptions L Shoulder Flexion 0-180: ~160 L Elbow Flexion 0-145: WFL L Elbow Extension 145-0: WFL Left Hand AROM (degrees) Left Hand AROM: WFL RUE AROM (degrees) RUE AROM : Exceptions R Shoulder Flexion 0-180: ~160 R Wrist Flexion 0-80: WFL R Wrist Extension 0-70: WFL Right Hand AROM (degrees) Right Hand AROM: WFL LUE Strength L Hand General: 4/5 RUE Strength R Hand General: 4/5 Plan Times per Week: 3-5 Plan Weeks: 4 Current Treatment Recommendations: Strengthening, Functional Mobility Training, Home Management Training, ROM, Endurance Training, Stair training, Equipment Evaluation, Education, & procurement, Balance Training, Safety Education & Training, Self-Care / ADL Safety Safety Devices in place: Yes Type of devices: All fall risk precautions in place, Left in chair, Call light within reach, Gait belt, Patient at risk for falls, No alarms engaged upon entry into room Outcomes Score AM-PAC Score AM-PAC Inpatient Daily Activity Raw Score: 22 ADL Inpatient CMS G-Code Modifier: CJ Goals Encounter Problems Encounter Problems (Active) Balance Patient will maintain dynamic standing balance for 10 minutes with independence in order to demonstrate decreased risk of falling. Start: 01/06/23 Bathing Patient will utilize adaptive techniques to bathe body with independence Start: 01/06/23 Grooming Patient will complete daily grooming tasks while standing with independence Start: 01/06/23 Mobility Patient will complete item retrieval with independence Start: 01/06/23 Education Education Given To: Patient Education Provided: OT role, Plan of care, Transfer training, Discharge recommendations Education Method: Verbal Barriers to Learning: None Education Outcome: Verbalized understanding Therapy Time Individual Co-treatment Time In 30 Time Out 0951 Minutes 21 Patient's Occupational Therapy Plan of Care supervision is transferred to [facility] Occupational Therapist. Goals and/or treatment plan was established in collaboration with patient/family/other representatives. Wendy Curran S/OT Physical Therapy Facility/Department: [facility] Physical Therapy Daily Treatment Note NAME: Lacy Alvarado : 1950 Date of Service: 01/06/2023 Discharge Recommendations: IP Rehab PT Equipment Recommendations Equipment Needed: No Assessment Requires PT Follow-Up: Yes Assessment: Pt presents with the listed deficits and decreaswed functional mobility. PT goals progressing. Transfers demo'd SBA from various surfaces with momentum required to complete. Ambulation demo'd CGA with Rollator and multiple standing rest breaks d/t fatigue. P&C exercises completed to improve ROM and healing. Mild SOB with cues for pursed lip breathing throughout SpO2 >92% at all times on RA. Increased time required for all task completion. Pt with limited endurance and must be able to complete 3 flights of stairs to return home and enter her apartment. Recommend IP Rehab at discharge. Performance Deficits/Impairments: Decreased functional mobility , Decreased endurance, Increased pain, Decreased ADL status, Decreased strength, Decreased posture, Decreased balance Treatment Diagnosis: limited mobility Decision Making: Medium Complexity Barriers to Learning: none Patient Diagnosis(es): The primary encounter diagnosis was CAD in [place] artery. A diagnosis of Coronary artery disease involving coronary bypass graft, unspecified whether angina present, unspecified whether [place] or transplanted heart was also pertinent to this visit. has a past medical history of CHF (congestive heart failure) (CMS/HCC) (FORM[facility]), Diabetes mellitus ([facility]), GERD (gastroesophageal reflux disease), Hyperlipidemia, Hypertension, RA (rheumatoid arthritis) ([facility]), Seizure ([facility]), Seizures ([facility]), and Sleep apnea. has a past surgical history that includes Cardiac catheterization; Coronary stent placement (03/22/2018); Hysterectomy; and Colonoscopy. Restrictions Restrictions/Precautions Restrictions/Precautions: General Precautions, Surgical Protocols Required Braces or Orthoses?: No Position Activity Restriction Sternal Precautions: No Pushing, No Pulling, 10# Lifting Restrictions Sternal Precautions: Yes Other position/activity restrictions: tele, PIV, Vision/Hearing Subjective General Chart Reviewed: Yes Patient Assessed for Rehabilitation Services: Yes Response To Previous Treatment: Patient with no complaints from previous session. Family / Caregiver Present: No Diagnosis: CAD in [place] artery s/p CABG on 01/01 Follows Commands: Within Functional Limits Subjective Subjective: Pt sitting in recliner. Agreeable to PT. RN cleared for treatment. Pt reports SOB with activity and minimal incisional pain but does not rate. Overall feeling tired. Patient Stated Goal: to get strong enough to go home Pain Assessment Pain Score: Scheduled Cognition/Orientation Overall Cognitive Status: WFL Overall Orientation Status: Within Functional Limits Objective Bed mobility Supine to Sit: Unable to assess Sit to Supine: Unable to assess Scooting: Unable to assess Comment: NT - in recliner pre/post session Transfers Sit to Stand: Stand by assistance Stand to sit: Stand by assistance Comment: SBA x 3 for transfers from variuos surface heights. Good anterior wt s hift. Pt able to maintain sternal precautions with cues throughout. Use of sternal pillow and increased time required. SOBOE with cues for pursed lip breathing. SpO2 > 92% with activity. Denies dizziness. No LOB. General unsteadiness noted, requiring SBA for safety. Ambulation Ambulation: Yes Ambulation 1 Surface 1: Level tile Device 1: Rollator Assistance 1: Contact guard Quality of Gait 1: slow derrick, shuffling Quality of Gait Comment 1: shuffle, guarded posture, Distance (ft) 1: 80 ft x 2 with 4 standing rest breaks, 10ft from toilet to recliner Comments 1: Slow paced. Reported SOB with progressive ambulation. Upon returning to the room, SpO2 >92% on RA (mostly 94-97%). No LOB. Increased tmie required. Cues for pursed lip breathing throughout. Balance Comments: SUP for anterior david-care in sitting on toilet. Standing balance SBA for standing hand hygiene and brushing teeth. Denies dizziness. No LOB. Standing balance ~ 3 min or ADL's reaching outside NELIA. Exercises Upper Extremity: P&C's 1-9 x 10 each Comments: IS x 5 - 750mL Plan Times per Week: 5-7 Plan Weeks: 3 Current Treatment Recommendations: Strengthening, ROM, Balance Training, Functional Mobility Training, Transfer Training, ADL/Self-care Training, Stair training, Gait Training, Endurance Training, Safety Education & Training, Home Exercise Program, Equipment Evaluation, Education, & procurement, Patient/Caregiver Education & Training Safety Safety Devices Safety Devices in Place: Yes Type of Devices: Left in chair, Call light within reach, No alarms engaged upon entry into room, Nurse notified, Gait belt Restraints Restraints Initially in Place: No AM-PAC Score AM-PAC Inpatient Mobility Raw Score (No Stairs) : 13 Goals Encounter Problems Encounter Problems (Active) Cardiac Patient will perform bed mobility with independence in order to improve independence and prepare for out of bed mobility. (Not Addressed) Start: 01/02/23 Expected End: 01/23/23 Patient will complete sit to stand transfer with independence to LRD in order to improve safety and prepare for out of bed mobility. (Progressing) Start: 01/02/23 Expected End: 01/23/23 Patient will ambulate 150 feet or ambulate 5 minutes with independence with RPE of 14 or lower. (Progressing) Start: 01/02/23 Expected End: 01/23/23 Patient will ascend and descend 3 flights of stairs with independence rail for balance only. (Not Addressed) Start: 01/02/23 Expected End: 01/23/23 Patient will be independent with P&C exercises. (Progressing) Start: 01/02/23 Expected End: 01/23/23 Patient will be independent with managing secretions and home walking program. (Progressing) Start: 01/02/23 Expected End: 01/23/23 Education Education Given To: Patient Education Provided: Goals, PT Role, Plan of Care, Precautions, Gait Training, Transfer Training, Home Exercise Program, Energy Conservation Education Provided Comments: sternal precuations, performing P&C's Indep daily. Ambulating with staff multiple times daily. Education Method: Verbal Barriers to Learning: None Education Outcome: Verbalized understanding Therapy Time Individual Co-treatment Time In 0802 Time Out 0842 Minutes 40 Timed Code Treatment Minutes: 40 Minutes (FA, GT, TP) CYBER INCIDENT ANALYST wore PPE in compliance with hospital guidelines and regulation when treating this patient. Samaria Li, CYBER INCIDENT ANALYST Images from the original note were not included. Cardiothoracic Surgery/[facility] Progress Note PATIENT NAME: Lacy Alvaardo DATE: 01/06/23 HPI: 72 y.o. female was referred by Dr. Bhanu Milian. 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 Patient also had an echo done which showed mild (1+) tricuspid valve insufficiency. She presents for CABG from the OP setting Surgery/Procedure: 01/01/23: Dr. Rose - CABG x 3 Interval History: 01/06/23, POD# 5: VSS, NSR on tele, on RA. Cr normalized, Hgb 10.2, stable. Resting in chair, no acute concerns, pain is controlled. Review of Systems Constitutional: Positive for activity change, appetite change and fatigue. Negative for diaphoresis and fever. Respiratory: Negative for cough, shortness of breath and wheezing. Cardiovascular: Negative for chest pain, palpitations and leg swelling. Gastrointestinal: Negative for abdominal distention, constipation and diarrhea. Skin: Negative for color change, pallor and rash. Objective: Last BM Date: 01/04/23 Vitals: BP: 113/68, MAP (mmHg): 81, BP Method: Automatic Heart Rate: 83 Resp: 16 Temp: 37 C (98.6 F), Temp Source: Temporal BMI (Calculated): 33.06 CXR: BMP: Recent Labs 01/04/23 0309 01/05/23 0041 01/06/23 0034 NA 135 137 136 K 3.9 3.8 3.9 CL 100 98 98 CO2 26 27 27 BUN 34* 43* 39* CREATININE 1.11* 1.25* 0.99 CALCIUM 8.5 8.5 8.6 MG 2.6* 2.8* 2.7* CBC: Recent Labs 01/04/23 0309 01/05/23 0041 01/06/23 0034 WBC 7.9 6.7 5.6 HGB 9.9* 9.9* 10.2* HCT 29.0* 28.7* 30.7* PLT 87* 114* 141 MCV 93.4 93.5 95.3 RDW 16.0* 16.0* 16.2* INR: No results for input(s): INR in the last 72 hours. Physical Exam Constitutional: Appearance: She is overweight. Cardiovascular: Rate and Rhythm: Normal rate and regular rhythm. Heart sounds: Normal heart sounds. No murmur heard. No friction rub. Pulmonary: Effort: Pulmonary effort is normal. Breath sounds: Examination of the right-lower field reveals decreased breath sounds. Decreased breath sounds present. No wheezing or rhonchi. Abdominal: General: Bowel sounds are normal. There is no distension. Palpations: Abdomen is soft. Tenderness: There is no abdominal tenderness. Musculoskeletal: Right lower leg: No edema. Left lower leg: No edema. Skin: General: Skin is warm and dry. Capillary Refill: Capillary refill takes less than 2 seconds. Findings: Bruising and ecchymosis present. Comments: Surgical Incisions: well approximate; clean dry with no drainage noted. Surrounding skin no redness, warmth, or signs of infection noted. Neurological: Mental Status: She is alert. Psychiatric: Behavior: Behavior is cooperative. Assessment: CAD s/p CABG (previous stent) CHF T2DM HLD Epilepsy HTN RA LINA Post operative Pulm Management: Normal Post-operative Course Post-operative Atrial Fibrillation: []Yes [x] No Acute blood loss anemia/consumptive thrombocytopenia Plan: Patient Status: Telemetry ASA/Statin Up-titrate BB: Metoprolol 50mg BID Continue holding Lasix Home meds: Depakote & Duloxetine Endocrine following for insulin needs PT/OT:IPR (01/04/23) Pulmonary hygiene: IS and Acapella GI prophy: PO protonix DVT prophy:TEDs, SCDs, and Heparin SubQ Disposition: TBD- patient medically stable, will start IPR planning Central Line: []Yes [x] No Arterial Line: []Yes [x] No Araya: []Yes [x] No Restraints: []Yes [x] No Patient discussed and plan of day developed from multidisciplinary rounds between Cardiothoracic Surgery (Cardiothoracic Surgeon, SONYA) and Critical Care Attending Cardiac Core Medications: ASA, Statin, and BB EF: 01/01: Normal Blood Conservation: Transfused postop Plug Sorter: [facility] Associated attestation - Bridger Woods MD - 01/06/2023 5:30 PM EDT I have personally seen the patient and examined along with the SONYA/resident team. I personally obtained the hunter and relevent portions of the history and performed physical exam. I reviewed the chart including MAR , labs and radiology and discussed the patient's plan of action with the resident/SONYA. This note reflects my plan of care as I have edited the note to reflect my findings and my assessment and plan. Date of service: 01/06/23 Discussed with: []Residents [x]Patient/Family [x]RN []Consultants [x]SW/TCC []Other [x]SONYA Personally Reviewed: [x]Epic notes [x]Radiology studies [x]Labs []EKG []Other Assessment: -mvCAD s/p CABG -HFpEF -DM2 -HLD -Epilepsy -HTN -Rheumatoid arthritis -LINA -Obesity Plan: -Continue ASA/statin -Increase BB dose to 50 mg BID -hold diuresis, euvolemic -Continue home psychiatric medications -Dispo planning: IPR, referral placed -Tele status -Remainder as per SONYA documentation. ICU Checklist: DVT prophylaxis: subcutaneous heparin GI prophylaxis: pantoprazole Bowel Regimen: prn senna/miralax Glycemic control: at goal Lines/Devices/Tubes w/ dates: PIV GOC/Family Discussions: Full code Department of Internal Medicine Division of Endocrinology, Diabetes, & Metabolism Endocrinology Note Patient Name: Lacy Alvarado : 1950 AGE: 72 y.o. Room/Bed: T1-103/T1-103 A Admission Date: 01/01/2023 Visit Date: 01/05/2023 Reason for Endocrine Consult: post op heart Provider/Team Requesting Consult: cts PCP: MAYDA GARCIA Outpt Loan Interviewer Mortgage: No ASSESSMENT: DM 2 with hyperglycemia without termite control servicer insulin Stress hyperglycemia CAD s/p Cabgx4 PLAN: - continue Humalog SSI - will hold off on scheduled insulin at this time since BG have been controlled - continue blood glucose monitoring - discussed postop hyperglycemia management and goals of therapy - patient likely will resume Januvia on discharge for DM; can also consider other agents such as SGLT-2i or GLP-1a ICU goal <180 GMF goal <150 POCT achs Hypoglycemia per protocol Carb controlled diet ANTICIPATED ENDOCRINE HOME GOING RECOMMENDATIONS: Optimized for Discharge from Endocrine standpoint: No Home Going Endocrine Rx Recommendations-- Likely restart Januvia 100 mg daily May benefit from SGLT2i or switch to GLP1 Outpt Follow Up-- PCP SUBJECTIVE/HPI: CHIEF COMPLAINT: No chief complaint on file. Cabgx4 Noted hx dm2 in chart Patient up in recliner Improved appetite Denies N/V; no AP Some incisional pain Chest tubes removed No SOB Ambulating Type of DM: 2 Onset of DM: ~5 years ( was on Metformin initially but did not tolerate) Home DM Medication Regimen: januvia 100 mg po daily DM control (last A1c/glucose data): Lab Results Component Value Date HGBA1C 6.7 (H) 12/29/2022 Glucose Date/Time Value Ref Range Status 01/05/2023 08:58 AM 110 (H) 70 - 100 mg/dL Final 01/04/2023 06:56 PM 116 (H) 70 - 100 mg/dL Final 01/04/2023 02:00 PM 119 (H) 70 - 100 mg/dL Final 01/04/2023 09:27 AM 122 (H) 70 - 100 mg/dL Final 01/03/2023 05:20 PM 150 (H) 70 - 100 mg/dL Final 01/03/2023 11:44 AM 135 (H) 70 - 100 mg/dL Final Review of Systems ROS negative except for those mentioned in HPI. OBJECTIVE: Vitals: 01/05/23 0500 01/05/23 0600 01/05/23 0700 01/05/23 0904 BP: 129/68 BP Location: Patient Position: Pulse: 93 91 95 100 Resp: Temp: TempSrc: SpO2: 95% 96% Weight: 180 lb 12.4 oz (82 kg) Height: Physical Exam Vitals and nursing note reviewed. Constitutional: General: She is awake. Appearance: She is obese. HENT: Head: Normocephalic. Cardiovascular: Rate and Rhythm: Normal rate and regular rhythm. Pulmonary: Effort: Pulmonary effort is normal. No respiratory distress. Breath sounds: Normal breath sounds. Abdominal: General: There is no distension. Palpations: Abdomen is soft. Tenderness: There is no abdominal tenderness. Musculoskeletal: Right lower leg: Edema present. Left lower leg: Edema present. Skin: General: Skin is warm and dry. Comments: Sternal incision clean and dry Psychiatric: Mood and Affect: Mood normal. Behavior: Behavior normal. Behavior is cooperative. 24 hour intake/output: Intake/Output Summary (Last 24 hours) at 01/05/2023 1030 Last data filed at 01/05/2023 0600 Gross per 24 hour Intake -- Output 250 ml Net -250 ml Diet: Adult diet Regular; 5 carb choices (75 gm/meal) Medications (as per EMR): HomeMeds: Current Outpatient Medications Medication Instructions aspirin 81 mg, Oral, Daily atorvastatin (LIPITOR) 80 mg, Oral, Daily calcium citrate (CALCITRATE) 950 mg, Oral, Daily carvedilol (Coreg) 12.5 MG tablet Oral, 2 times daily with meals clopidogrel (PLAVIX) 75 mg, Oral, Daily divalproex (DEPAKOTE) 1,000 mg, Oral, 2 times daily, 1,000 mg in am and 1,200 mg in evening DULoxetine (CYMBALTA) 30 mg, Oral, Daily, Do not crush or chew. hydroxychloroquine (PLAQUENIL) 200 mg, Oral, 2 times daily isosorbide mononitrate ER (IMDUR) 60 mg, Oral, Daily, Do not crush or chew. losartan (COZAAR) 50 mg, Oral, 2 times daily Multiple Vitamin (multivitamin) capsule 1 capsule, Oral, Daily mupirocin (Bactroban) 2 % ointment Apply liberal amount per nostril the night before surgery and then again the morning of surgery pantoprazole (PROTONIX) 40 mg, Oral, Daily before breakfast, Do not crush, chew, or split. polyethylene glycol (PEG) 3350 (MIRALAX) 17 g, Oral, Daily SITagliptin (JANUVIA) 100 mg, Oral, Daily traMADol (ULTRAM) 50 mg, Oral Scheduled Meds:acetaminophen, 1,000 mg, Oral, q8h aspirin, 81 mg, Oral, Daily atorvastatin, 80 mg, Oral, Daily chlorhexidine, 15 mL, Mouth/Throat, BID divalproex, 1,250 mg, Oral, Nightly divalproex, 500 mg, Oral, q AM DULoxetine, 30 mg, Oral, Daily [Held by provider] furosemide, 40 mg, Oral, Daily heparin, 5,000 Units, SubCUTAneous, BID insulin lispro, 0-6 Units, SubCUTAneous, TID WC Lidocaine, 1 patch, Topical, Daily magnesium hydroxide, 30 mL, Oral, Daily metoprolol tartrate, 25 mg, Oral, BID pantoprazole, 40 mg, Oral, qAM AC polyethylene glycol (PEG) 3350, 17 g, Oral, Daily senna-docusate sodium, 2 tablet, Oral, Nightly Continuous Infusions: PRN Meds:PRN medications: calcium gluconate, dextrose, dextrose, glucagon (rDNA), glucose, ipratropium-albuterol, magnesium sulfate OR magnesium sulfate, ondansetron ODT OR ondansetron, oxyCODONE OR oxyCODONE, potassium chloride OR potassium chloride 20 mEq in sodium chloride 0.9 % 250 mL IVPB OR potassium chloride 40 mEq in sodium chloride 0.9 % 500 mL IVPB, potassium chloride CR, sodium chloride Diagnostic Workup: I reviewed pertinent Laboratory results, Radiographic results, and Other Clinical Notes at the time of today's encounter. Labs: No components found for: LABA1C No components found for: EAG Lab Results Component Value Date NA 137 01/05/2023 K 3.8 01/05/2023 CL 98 01/05/2023 CO2 27 01/05/2023 BUN 43 (H) 01/05/2023 CREATININE 1.25 (H) 01/05/2023 GLUCOSE 98 01/05/2023 CALCIUM 8.5 01/05/2023 No results found for: CHLPL, CHOL No results found for: TRIG No results found for: HDL No results found for: LDLCALC No results found for: VLDL No results found for: CHOLHDLRATIO No results found for: [id number] No results found for: TSH, [id number], [id number], THYROIDAB Radiology reportsas per the Radiologist Radiology: ECG 12 lead Result Date: 01/01/2023 Sinus rhythm History/Other: Past Medical History: Past Medical History: Diagnosis Date CHF (congestive heart failure) (CMS/HCC) (HCC) Diabetes mellitus (HCC) GERD (gastroesophageal reflux disease) Hyperlipidemia Hypertension RA (rheumatoid arthritis) (HCC) Seizure (HCC) last seizure 5 months ago gand trevor 08/24 Seizures (HCC) Sleep apnea Past Surgical History: Past Surgical History: Procedure Laterality Date CARDIAC CATHETERIZATION COLONOSCOPY CORONARY STENT PLACEMENT 03/22/2018 HYSTERECTOMY Allergy(ies): Allergies Allergen Reactions Prednisone Hives and Nausea And Vomiting Family History: No family history on file. Social History: Social History Tobacco Use Smoking status: Never Smokeless tobacco: Never Vaping Use Vaping Use: Never used Substance Use Topics Alcohol use: Yes Comment: once a year Drug use: Never Portions of the information within this encounter were entered using an electronic dictation system. Best attempts were made to edit/proofread the information prior to note completion. Despite the review of information, some errors may remain. If there are questions related to the information contained within the note please contact the signing physician directly. I spent 35 minutes with the pt which involved coordination of care, medical evaluation, review of records, and/or counseling of the pt regarding his/her condition/disease state/prognosis on the date of this note. Images from the original note were not included. Cardiothoracic Surgery/[facility] Progress Note PATIENT NAME: Lacy Alvarado DATE: 01/05/23 HPI: Lacy Alvarado is a 72 y.o. female was referred to us by Dr. Bhanu Milian. 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 Patient also had an echo done which showed mild (1+) tricuspid valve insufficiency. Dr Rose office note 12/23/2022. She presents for CABG today from the OP setting Surgery/Procedure: 01/01/23: Dr. Rose - CABG x 4 (Official Report Pending) Interval History: 01/05/23, POD# 04. Afebrile, NSR on tele, BP stable, on RA. Chest tubes and central line removed yesterday. No acute issues overnight. Sitting up in chair this AM. Review of Systems Constitutional: Positive for fatigue. Negative for chills, diaphoresis and fever. Respiratory: Negative for cough, shortness of breath and wheezing. Cardiovascular: Negative for chest pain, palpitations and leg swelling. Gastrointestinal: Negative for abdominal distention, abdominal pain, nausea and vomiting. Neurological: Negative for dizziness, syncope and light-headedness. Objective: Vitals: BP: 122/61, MAP (mmHg): 78, BP Method: Automatic Heart Rate: 94 Resp: 16 Temp: 37.1 C (98.8 F), Temp Source: Temporal BMI (Calculated): 32 BMP: Recent Labs 01/03/23 0014 01/04/23 0309 01/05/23 004 NA 136 135 137 K 4.4 3.9 3.8 CL 103 100 98 CO2 25 26 27 BUN 23* 34* 43* CREATININE 0.80 1.11* 1.25* CALCIUM 8.5 8.5 8.5 MG 2.3 2.6* 2.8* CBC: Recent Labs 01/03/23 0014 01/04/23 0309 01/05/23 0041 WBC 8.6 7.9 6.7 HGB 10.1* 9.9* 9.9* HCT 29.5* 29.0* 28.7* PLT 82* 87* 114* MCV 93.3 93.4 93.5 RDW 16.7* 16.0* 16.0* INR: Recent Labs 01/03/23 0014 INR 1.1 Physical Exam Vitals reviewed. Constitutional: General: She is not in acute distress. Appearance: She is not ill-appearing or diaphoretic. Cardiovascular: Rate and Rhythm: Normal rate and regular rhythm. Pulses: Normal pulses. Heart sounds: No murmur heard. Pulmonary: Effort: Pulmonary effort is normal. Breath sounds: No wheezing, rhonchi or rales. Comments: Diminished in bases R>L. Abdominal: General: There is no distension. Palpations: Abdomen is soft. Tenderness: There is no abdominal tenderness. Musculoskeletal: General: No swelling. Skin: General: Skin is warm and dry. Comments: MSI well approximated, no redness, warmth or drainage noted. Neurological: General: No focal deficit present. Mental Status: She is alert and oriented to person, place, and time. Psychiatric: Mood and Affect: Mood normal. Behavior: Behavior normal. Thought Content: Thought content normal. Judgment: Judgment normal. Assessment: CAD s/p CABG (previous stent) CHF T2DM HLD Epilepsy HTN RA LINA Post operative Pulm Management: Normal Post-operative Course Post-operative Atrial Fibrillation: []Yes [x] No Acute blood loss anemia/consumptive thrombocytopenia Plan: Patient Status: Telemetry Assess R pleural effusion, possible thoracentesis. Stop lasix today. Continue other medications. Aspirin, statin and BB. -Will titrate up BB as BP can tolerate. Home Depakote and Cymbalta. Encourage PO intake. PT/OT: IPR (01/04/23) Out of bed for meals, progressive mobility. Pulmonary hygiene: IS and Acapella. Wean O2 as able, goal SpO2>92%. GI prophy: PO protonix DVT prophy:TEDs and SCDs Disposition: Recommending IPR. Patient lives on [address] , would likely benefit from rehab. Start process Thursday, DC when able. Central Line: []Yes [x] No Arterial Line: []Yes [x] No Araya: []Yes [x] No Restraints: []Yes [x] No Patient discussed and plan of day developed from multidisciplinary rounds between Cardiothoracic Surgery (Cardiothoracic Surgeon, SONYA) and Critical Care Attending Cardiac Core Medications: ASA, Statin, and BB EF: Nomal (SIS 01/01/23) Blood Conservation: Transfused post-op. Plug Sorter: [facility] Associated attestation - Bridger Woods MD - 01/05/2023 2:26 PM EDT I have personally seen the patient and examined along with the SONYA/resident team. I personally obtained the hunter and relevent portions of the history and performed physical exam. I reviewed the chart including MAR , labs and radiology and discussed the patient's plan of action with the resident/SONYA. This note reflects my plan of care as I have edited the note to reflect my findings and my assessment and plan. Date of service: 01/05/23 Discussed with: []Residents [x]Patient/Family [x]RN [x]Consultants []SW/TCC []Other [x]SONYA Personally Reviewed: [x]Epic notes [x]Radiology studies [x]Labs []EKG []Other In addition to resident/SONYA documentation pertinent History, ROS, and/or Physical Exam findings include: agree with documentation Assessment: -mvCAD s/p CABG -HFpEF -DM2 -HLD -Epilepsy -HTN -Rheumatoid arthritis -LINA -Obesity Plan: -Continue pulmonary hygiene measures, mobilization, PT/OT -Monitor off lasix, monitor creatinine trend - appears euvolemic -Continue home AEDs -Continue to wean supplemental oxygen as tolerated -Dispo planning: IPR, ready for discharge as early as tomorrow -Monitor right pleural effusion, consider thora on day of discharge. -Tele status ICU Checklist: DVT prophylaxis: subcutaneous heparin GI prophylaxis: pantoprazole Bowel Regimen: prn senna/miralax Glycemic control: at goal Lines/Devices/Tubes w/ dates: PIV GOC/Family Discussions: Full code Images from the original note were not included. Cardiothoracic Surgery Note PATIENT NAME: Lacy Alvarado : 1950 (72 y.o.) TODAY'S DATE: 01/04/2023 Objective: BP 106/60 (BP Location: Right arm, Patient Position: Sitting) Pulse 84 Temp 36.3 C (97.4 F) (Temporal) Resp 14 Ht 5' 2 (1.575 m) Wt 175 lb (79.4 kg) SpO2 96% BMI 32.01 kg/m Chest tubes assessed: no air leak, subcutaneous air noted. Chest tubes removed without difficulty and dressing applied. Patient tolerated well. Patient and nurse educated on possible complications to observe for. Will continue to monitor. Physical Therapy Facility/Department: [facility] [place] Physical Therapy Daily Treatment Note NAME: Lacy Alvarado : 1950 Date of Service: 01/04/2023 Discharge Recommendations: IP Rehab PT Equipment Recommendations Equipment Needed: No Assessment Requires PT Follow-Up: Yes Assessment: Pt is progressing towards PT goals. Seated rest break required on the rollator during ambulation in the hassan d/t fatigue and mild SOB. Pt has limited endurance still, and she must be able to complete 3 flights of stairs prior to returning to home to enter her apartment. Currently, recommend IP Rehab at disch. Performance Deficits/Impairments: Decreased functional mobility , Decreased endurance, Increased pain, Decreased ADL status, Decreased strength, Decreased posture, Decreased balance Decision Making: Medium Complexity Patient Diagnosis(es): The primary encounter diagnosis was CAD in [place] artery. A diagnosis of Coronary artery disease involving coronary bypass graft, unspecified whether angina present, unspecified whether [place] or transplanted heart was also pertinent to this visit. has a past medical history of CHF (congestive heart failure) (CMS/HCC) ([facility]), Diabetes mellitus (HCC), GERD (gastroesophageal reflux disease), Hyperlipidemia, Hypertension, RA (rheumatoid arthritis) ([facility]), Seizure ([facility]), Seizures ([facility]), and Sleep apnea. has a past surgical history that includes Cardiac catheterization; Coronary stent placement (03/22/2018); Hysterectomy; and Colonoscopy. Restrictions Restrictions/Precautions Restrictions/Precautions: General Precautions, Surgical Protocols Required Braces or Orthoses?: No Position Activity Restriction Sternal Precautions: No Pushing, No Pulling, 10# Lifting Restrictions Sternal Precautions: Yes Other position/activity restrictions: tele, chest tubes, PIV, Vision/Hearing Subjective General Chart Reviewed: Yes Patient Assessed for Rehabilitation Services: Yes Family / Caregiver Present: No Diagnosis: CAD in [place] artery s/p CABG on 01/01 Follows Commands: Within Functional Limits Subjective Subjective: Pt in the recliner and agreeable to PT. RN OK with PT to see pt. Pt reported mild incisional pain and SOB with activity. Overall reported feeling very tired. Patient Stated Goal: to get strong enough to go home Cognition/Orientation Overall Cognitive Status: WFL Overall Orientation Status: Within Functional Limits Objective Bed mobility Comment: Nt- in recliner to start and finish Transfers Sit to Stand: Minimal Assistance Stand to sit: Minimal Assistance Bed to Chair: Minimal assistance Comment: STS x 3 for transfers recliner>rollator>toilet>recliner . Cues for sternal precautions throughout Ambulation Ambulation: Yes Ambulation 1 Surface 1: Level tile Device 1: Rollator Assistance 1: Contact guard Quality of Gait 1: slow derrick, shuffling Distance (ft) 1: 70 ft + 70 ft (seated rest on the rollator prior to returning to room) and 10 ft toilet>recliner Comments 1: Slow paced. Reported SOB with progressive ambulation. Upon returning to the room, SpO2 >92% on RA (mostly 94-97%). Balance Posture: Fair Sitting - Static: Good, - Sitting - Dynamic: Good, - Standing - Static: Fair, + Standing - Dynamic: Fair, + Comments: Use of rollator for ambulation. Seated rest break prior to returning to room during ambulation in the hassan. Pt able to complete anterior david-care sitting on the toilet and stand at the sink (lightly leaning on elbow) without LOB, SBA. denied dizziness and light headedness. Exercises Upper Extremity: P&C's 1-9 (except #5) x 10 each Comments: IS x 10: 500mL Plan Times per Week: 5-7 Plan Weeks: 3 Current Treatment Recommendations: Strengthening, ROM, Balance Training, Functional Mobility Training, Transfer Training, ADL/Self-care Training, Stair training, Gait Training, Endurance Training, Safety Education & Training, Home Exercise Program, Equipment Evaluation, Education, & procurement, Patient/Caregiver Education & Training Safety Safety Devices Safety Devices in Place: Yes Type of Devices: Left in chair, Call light within reach, No alarms engaged upon entry into room, Nurse notified Restraints Restraints Initially in Place: No Outcomes Score AM-PAC Score AM-PAC Inpatient Mobility Raw Score (No Stairs) : 13 Goals Encounter Problems Encounter Problems (Active) Cardiac Patient will perform bed mobility with independence in order to improve independence and prepare for out of bed mobility. (Not Addressed) Start: 01/02/23 Expected End: 01/23/23 Patient will complete sit to stand transfer with independence to LRD in order to improve safety and prepare for out of bed mobility. (Progressing) Start: 01/02/23 Expected End: 01/23/23 Patient will ambulate 150 feet or ambulate 5 minutes with independence with RPE of 14 or lower. (Progressing) Start: 01/02/23 Expected End: 01/23/23 Patient will ascend and descend 3 flights of stairs with independence rail for balance only. (Not Addressed) Start: 01/02/23 Expected End: 01/23/23 Patient will be independent with P&C exercises. (Progressing) Start: 01/02/23 Expected End: 01/23/23 Patient will be independent with managing secretions and home walking program. (Progressing) Start: 01/02/23 Expected End: 01/23/23 Education Education Given To: Patient Education Provided: Goals, PT Role, Plan of Care, Precautions Education Provided Comments: sternal precuations, performing P&C's Indep daily. Ambulating with staff multiple times daily. Education Method: Verbal Barriers to Learning: None Education Outcome: Verbalized understanding Therapy Time Individual Co-treatment Time In 1128 Time Out 1201 Minutes 33 Timed Code Treatment Minutes: (x1 Gait, x1 TP) Patient s Physical Therapy Plan of Care supervision is transferred to [facility] Rehab Department Physical Therapist. Ambreen Avitia PT Department of Internal Medicine Division of Endocrinology, Diabetes, & Metabolism Endocrinology Note Patient Name: Lacy Alvarado DOB: 1950 AGE: 72 y.o. 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 Stress hyperglycemia CAD s/p Cabgx4 PLAN: - continue Humalog SSI - pt with improved PO intake - will hold off on scheduled insulin at this time since BG have been very stable - continue blood glucose monitoring - discussed postop hyperglycemia management and goals of therapy - patient likely will resume Januvia on discharge for DM; can also consider other agents such as SGLT-2i or GLP-1a ICU goal <180 GMF goal <150 POCT achs Hypoglycemia per protocol Carb controlled diet ANTICIPATED ENDOCRINE HOME GOING RECOMMENDATIONS: Optimized for Discharge from Endocrine standpoint: No Home Going Endocrine Rx Recommendations-- Likely restart Januvia 100 mg daily May benefit from SGLT2i or switch to GLP1 Outpt Follow Up-- PCP SUBJECTIVE/HPI: CHIEF COMPLAINT: No chief complaint on file. Cabgx4 Noted hx dm2 in chart Patient up in recliner Improved appetite Denies N/V; no AP C/o pain at incision site No SOB Type of DM: 2 Onset of DM: ~5 years ( was on Metformin initially but did not tolerate) Home DM Medication Regimen: januvia 100 mg po daily DM control (last A1c/glucose data): Lab Results Component Value Date HGBA1C 6.7 (H) 12/29/2022 Glucose Date/Time Value Ref Range Status 01/04/2023 09:27 AM 122 (H) 70 - 100 mg/dL Final 01/03/2023 05:20 PM 150 (H) 70 - 100 mg/dL Final 01/03/2023 11:44 AM 135 (H) 70 - 100 mg/dL Final 01/03/2023 08:27 AM 133 (H) 70 - 100 mg/dL Final 01/02/2023 04:40 PM 116 (H) 70 - 100 mg/dL Final 01/02/2023 01:20 PM 121 (H) 70 - 100 mg/dL Final Review of Systems ROS negative except for those mentioned in HPI. OBJECTIVE: Vitals: 01/04/23 0000 01/04/23 0400 01/04/23 0600 01/04/23 0927 BP: 121/73 119/66 123/56 BP Location: Right arm Right arm Right arm Patient Position: Lying Lying Lying Pulse: 78 78 89 Resp: 14 16 16 Temp: 36.5 C (97.7 F) 36.4 C (97.5 F) 36.3 C (97.3 F) TempSrc: Temporal Temporal Temporal SpO2: 96% 96% 98% Weight: 175 lb (79.4 kg) Height: Physical Exam Vitals and nursing note reviewed. Constitutional: General: She is awake. She is not in acute distress. Appearance: She is obese. HENT: Head: Normocephalic. Cardiovascular: Rate and Rhythm: Normal rate and regular rhythm. Pulmonary: Effort: Pulmonary effort is normal. No respiratory distress. Breath sounds: Normal breath sounds. Abdominal: General: There is no distension. Palpations: Abdomen is soft. Tenderness: There is no abdominal tenderness. Musculoskeletal: Right lower leg: Edema present. Left lower leg: Edema present. Skin: General: Skin is warm and dry. Comments: Sternal incision clean and dry Chest tubes intact Psychiatric: Mood and Affect: Mood normal. Behavior: Behavior normal. Behavior is cooperative. 24 hour intake/output: Intake/Output Summary (Last 24 hours) at 01/04/2023 1034 Last data filed at 01/04/2023 0900 Gross per 24 hour Intake 370 ml Output 750 ml Net -380 ml Diet: Adult diet Regular; 5 carb choices (75 gm/meal) Medications (as per EMR): HomeMeds: Current Outpatient Medications Medication Instructions aspirin 81 mg, Oral, Daily atorvastatin (LIPITOR) 80 mg, Oral, Daily calcium citrate (CALCITRATE) 950 mg, Oral, Daily carvedilol (Coreg) 12.5 MG tablet Oral, 2 times daily with meals clopidogrel (PLAVIX) 75 mg, Oral, Daily divalproex (DEPAKOTE) 1,000 mg, Oral, 2 times daily, 1,000 mg in am and 1,200 mg in evening DULoxetine (CYMBALTA) 30 mg, Oral, Daily, Do not crush or chew. hydroxychloroquine (PLAQUENIL) 200 mg, Oral, 2 times daily isosorbide mononitrate ER (IMDUR) 60 mg, Oral, Daily, Do not crush or chew. losartan (COZAAR) 50 mg, Oral, 2 times daily Multiple Vitamin (multivitamin) capsule 1 capsule, Oral, Daily mupirocin (Bactroban) 2 % ointment Apply liberal amount per nostril the night before surgery and then again the morning of surgery pantoprazole (PROTONIX) 40 mg, Oral, Daily before breakfast, Do not crush, chew, or split. polyethylene glycol (PEG) 3350 (MIRALAX) 17 g, Oral, Daily SITagliptin (JANUVIA) 100 mg, Oral, Daily traMADol (ULTRAM) 50 mg, Oral Scheduled Meds:acetaminophen, 1,000 mg, Oral, q8h aspirin, 81 mg, Oral, Daily atorvastatin, 80 mg, Oral, Daily chlorhexidine, 15 mL, Mouth/Throat, BID divalproex, 1,250 mg, Oral, Nightly divalproex, 500 mg, Oral, q AM DULoxetine, 30 mg, Oral, Daily furosemide, 40 mg, Oral, Daily heparin, 5,000 Units, SubCUTAneous, BID insulin lispro, 0-6 Units, SubCUTAneous, TID WC Lidocaine, 1 patch, Topical, Daily magnesium hydroxide, 30 mL, Oral, Daily metoprolol tartrate, 25 mg, Oral, BID mupirocin, , Nasal, BID pantoprazole, 40 mg, Oral, qAM AC polyethylene glycol (PEG) 3350, 17 g, Oral, Daily senna-docusate sodium, 2 tablet, Oral, Nightly Continuous Infusions: PRN Meds:PRN medications: calcium gluconate, dextrose, dextrose, glucagon (rDNA), glucose, HYDROmorphone OR HYDROmorphone, ipratropium-albuterol, magnesium sulfate OR magnesium sulfate, ondansetron ODT OR ondansetron, oxyCODONE OR oxyCODONE, potassium chloride OR potassium chloride 20 mEq in sodium chloride 0.9 % 250 mL IVPB OR potassium chloride 40 mEq in sodium chloride 0.9 % 500 mL IVPB, potassium chloride CR, sodium chloride Diagnostic Workup: I reviewed pertinent Laboratory results, Radiographic results, and Other Clinical Notes at the time of today's encounter. Labs: No components found for: LABA1C No components found for: EAG Lab Results Component Value Date NA 135 01/04/2023 K 3.9 01/04/2023 CL 100 01/04/2023 CO2 26 01/04/2023 BUN 34 (H) 01/04/2023 CREATININE 1.11 (H) 01/04/2023 GLUCOSE 97 01/04/2023 CALCIUM 8.5 01/04/2023 No results found for: CHLPL, CHOL No results found for: TRIG No results found for: HDL No results found for: LDLCALC No results found for: VLDL No results found for: CHOLHDLRATIO No results found for: [id number] No results found for: TSH, W7AMGBA, A7MMMTL, THYROIDAB Radiology reportsas per the Radiologist Radiology: ECG 12 lead Result Date: 01/01/2023 Sinus rhythm History/Other: Past Medical History: Past Medical History: Diagnosis Date CHF (congestive heart failure) (CMS/HCC) (HCC) Diabetes mellitus (HCC) GERD (gastroesophageal reflux disease) Hyperlipidemia Hypertension RA (rheumatoid arthritis) (HCC) Seizure (HCC) last seizure 5 months ago nathaniel murray 08/24 Seizures (HCC) Sleep apnea Past Surgical History: Past Surgical History: Procedure Laterality Date CARDIAC CATHETERIZATION COLONOSCOPY CORONARY STENT PLACEMENT 03/22/2018 HYSTERECTOMY Allergy(ies): Allergies Allergen Reactions Prednisone Hives and Nausea And Vomiting Family History: No family history on file. Social History: Social History Tobacco Use Smoking status: Never Smokeless tobacco: Never Vaping Use Vaping Use: Never used Substance Use Topics Alcohol use: Yes Comment: once a year Drug use: Never Portions of the information within this encounter were entered using an electronic dictation system. Best attempts were made to edit/proofread the information prior to note completion. Despite the review of information, some errors may remain. If there are questions related to the information contained within the note please contact the signing physician directly. I spent 35 minutes with the pt which involved coordination of care, medical evaluation, review of records, and/or counseling of the pt regarding his/her condition/disease state/prognosis on the date of this note. Images from the original note were not included. Cardiothoracic Surgery/CCM Progress Note PATIENT NAME: Lacy Alvarado DATE: 01/04/23 HPI: Lacy Alvarado is a 72 y.o. female was referred to us by Dr. Bhanu Milian. 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 Patient also had an echo done which showed mild (1+) tricuspid valve insufficiency. Dr Rose office note 12/23/2022. She presents for CABG today from the OP setting Surgery/Procedure: 01/01/23: Dr. Rose - CABG x 4 (Official Report Pending) Interval History: 01/04/23, POD# 03. Afebrile, NSR on tele, BP stable, on 2L NC. Sitting up in chair this AM, feeling okay. +BM yesterday. Ambulating with nursing. Poor appetite but attempting to eat. Review of Systems Constitutional: Positive for fatigue. Negative for chills, diaphoresis and fever. Respiratory: Negative for cough, shortness of breath and wheezing. Cardiovascular: Positive for chest pain. Negative for palpitations and leg swelling. Gastrointestinal: Negative for abdominal distention, abdominal pain, nausea and vomiting. Neurological: Negative for dizziness, syncope and light-headedness. Objective: CT output cc/24hrs: 190 Vitals: BP: 119/66, MAP (mmHg): 79, BP Method: Automatic Heart Rate: 78 Resp: 16 Temp: 36.4 C (97.5 F), Temp Source: Temporal BMI (Calculated): 33.5 BMP: Recent Labs 01/01/23 1010 01/02/23 0002 01/02/23 0921 01/03/23 0014 01/04/23 0309 NA 140 140 140 136 135 K 3.6 4.5 4.5 4.4 3.9 CL 110* 107 107 103 100 CO2 20* 21* 23 25 26 BUN 21* 19* 20* 23* 34* CREATININE 0.77 0.86 0.99 0.80 1.11* CALCIUM 9.0 8.3* 8.7 8.5 8.5 MG 3.4* 2.3 -- 2.3 2.6* PHOS 3.7 -- -- -- -- CBC: Recent Labs 01/02/23 0002 01/03/23 0014 01/04/23 0309 WBC 6.1 8.6 7.9 HGB 8.7* 10.1* 9.9* HCT 25.7* 29.5* 29.0* PLT 80* 82* 87* MCV 92.4 93.3 93.4 RDW 16.8* 16.7* 16.0* INR: Recent Labs 01/01/23 1010 01/02/23 0002 01/03/23 0014 INR 1.3* 1.1 1.1 Physical Exam Vitals reviewed. Constitutional: General: She is not in acute distress. Appearance: She is not ill-appearing or diaphoretic. Neck: Comments: Central line. Cardiovascular: Rate and Rhythm: Normal rate and regular rhythm. Pulses: Normal pulses. Heart sounds: No murmur heard. Pulmonary: Effort: Pulmonary effort is normal. Breath sounds: No wheezing, rhonchi or rales. Comments: Shallow breaths, diminished in bases bilaterally. Abdominal: General: There is no distension. Palpations: Abdomen is soft. Tenderness: There is no abdominal tenderness. Comments: Chest tubes in place. Musculoskeletal: General: No swelling. Skin: General: Skin is warm and dry. Comments: MSI well approximated, no redness, warmth or drainage noted. Neurological: General: No focal deficit present. Mental Status: She is alert and oriented to person, place, and time. Psychiatric: Mood and Affect: Mood normal. Behavior: Behavior normal. Thought Content: Thought content normal. Judgment: Judgment normal. Assessment: CAD s/p CABG (previous stent) CHF T2DM HLD Epilepsy HTN RA LINA Post operative Pulm Management: Normal Post-operative Course Post-operative Atrial Fibrillation: []Yes [x] No Acute blood loss anemia/consumptive thrombocytopenia Plan: Patient Status: Telemetry Continue current medications. Aspirin, statin and BB. -Will titrate up BB as BP can tolerate. Lasix 40mg PO. Pull chest tubes. Do not re-order toradol d/t bump in creat. Home Depakote and Cymbalta. Heparin DVT prophy, platelets trending up slowly. Encourage PO intake. Daily labs with PRN electrolyte replacement protocols. PT/OT: Continue to assess. Out of bed for meals, progressive mobility. Pulmonary hygiene: IS and Acapella. Wean O2 as able, goal SpO2>92%. GI prophy: PO protonix DVT prophy:TEDs and SCDs Disposition: TBD. Central Line: [x]Yes [] No Arterial Line: []Yes [x] No Araya: []Yes [x] No Restraints: []Yes [x] No Patient discussed and plan of day developed from multidisciplinary rounds between Cardiothoracic Surgery (Cardiothoracic Surgeon, SONYA) and Critical Care Attending Cardiac Core Medications: ASA, Statin, and BB EF: Nomal (SIS 01/01/23) Blood Conservation: Transfused post-op. Plug Sorter: [facility] Department of Internal Medicine Division of Endocrinology, Diabetes, & Metabolism Endocrinology Note Patient Name: Lacy Alvarado : 1950 AGE: 72 y.o. 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 Stress hyperglycemia CAD s/p Cabgx4 PLAN: - continue Humalog SSI - pt with poor PO intake at this time - will hold off on scheduled insulin at this time - continue blood glucose monitoring - discussed postop hyperglycemia management and goals of therapy - patient likely will resume Januvia on discharge for DM; can also consider other agents such as SGLT-2i or GLP-1a ICU goal <180 GMF goal <150 POCT achs Hypoglycemia per protocol Carb controlled diet ANTICIPATED ENDOCRINE HOME GOING RECOMMENDATIONS: Optimized for Discharge from Endocrine standpoint: No Home Going Endocrine Rx Recommendations-- Likely restart Januvia May benefit from SGLT2i or switch to GLP1 Outpt Follow Up-- pcp SUBJECTIVE/HPI: CHIEF COMPLAINT: No chief complaint on file. Cabgx4 Noted hx dm2 in chart Patient in bed Very poor appetit Tried soup but couldn't tolerate it Denies N/V; no AP C/o pain at incision site No SOB Will try to ambulate today Nurse at bedside Type of DM: 2 Onset of DM: ~5 years ( was on Metformin initially but did not tolerate) Home DM Medication Regimen: januvia 100 mg po daily DM control (last A1c/glucose data): Lab Results Component Value Date HGBA1C 6.7 (H) 12/29/2022 Glucose Date/Time Value Ref Range Status 01/03/2023 08:27 AM 133 (H) 70 - 100 mg/dL Final 01/02/2023 04:40 PM 116 (H) 70 - 100 mg/dL Final 01/02/2023 01:20 PM 121 (H) 70 - 100 mg/dL Final 01/02/2023 09:27 AM 121 (H) 70 - 100 mg/dL Final 01/02/2023 07:05 AM 132 (H) 70 - 100 mg/dL Final 01/02/2023 06:02 AM 132 (H) 70 - 100 mg/dL Final Review of Systems ROS negative except for those mentioned in HPI. OBJECTIVE: Vitals: 01/03/23 0700 01/03/23 0800 01/03/23 0900 01/03/23 0902 BP: 108/57 111/62 106/56 BP Location: Patient Position: Pulse: 83 84 Resp: 16 Temp: 36.9 C (98.4 F) TempSrc: SpO2: 97% 96% Weight: Height: Physical Exam Vitals and nursing note reviewed. Constitutional: General: She is not in acute distress. Appearance: She is obese. HENT: Head: Normocephalic. Cardiovascular: Rate and Rhythm: Normal rate and regular rhythm. Pulmonary: Effort: Pulmonary effort is normal. No respiratory distress. Breath sounds: Normal breath sounds. Abdominal: General: There is no distension. Palpations: Abdomen is soft. Tenderness: There is no abdominal tenderness. Musculoskeletal: Right lower leg: Edema present. Left lower leg: Edema present. Skin: General: Skin is warm and dry. Comments: Sternal incision clean and dry Chest tubes intact Neurological: General: No focal deficit present. Mental Status: She is alert. Psychiatric: Mood and Affect: Mood normal. Behavior: Behavior normal. 24 hour intake/output: Intake/Output Summary (Last 24 hours) at 01/03/2023 0918 Last data filed at 01/03/2023 0600 Gross per 24 hour Intake 597 ml Output 685 ml Net -88 ml Diet: Adult diet Regular; 5 carb choices (75 gm/meal) Medications (as per EMR): HomeMeds: Current Outpatient Medications Medication Instructions aspirin 81 mg, Oral, Daily atorvastatin (LIPITOR) 80 mg, Oral, Daily calcium citrate (CALCITRATE) 950 mg, Oral, Daily carvedilol (Coreg) 12.5 MG tablet Oral, 2 times daily with meals clopidogrel (PLAVIX) 75 mg, Oral, Daily divalproex (DEPAKOTE) 1,000 mg, Oral, 2 times daily, 1,000 mg in am and 1,200 mg in evening DULoxetine (CYMBALTA) 30 mg, Oral, Daily, Do not crush or chew. hydroxychloroquine (PLAQUENIL) 200 mg, Oral, 2 times daily isosorbide mononitrate ER (IMDUR) 60 mg, Oral, Daily, Do not crush or chew. losartan (COZAAR) 50 mg, Oral, 2 times daily Multiple Vitamin (multivitamin) capsule 1 capsule, Oral, Daily mupirocin (Bactroban) 2 % ointment Apply liberal amount per nostril the night before surgery and then again the morning of surgery pantoprazole (PROTONIX) 40 mg, Oral, Daily before breakfast, Do not crush, chew, or split. polyethylene glycol (PEG) 3350 (MIRALAX) 17 g, Oral, Daily SITagliptin (JANUVIA) 100 mg, Oral, Daily traMADol (ULTRAM) 50 mg, Oral Scheduled Meds:acetaminophen, 1,000 mg, Oral, q8h aspirin, 81 mg, Oral, Daily atorvastatin, 80 mg, Oral, Daily chlorhexidine, 15 mL, Mouth/Throat, BID divalproex, 1,250 mg, Oral, Nightly divalproex, 500 mg, Oral, q AM DULoxetine, 30 mg, Oral, Daily furosemide, 40 mg, IntraVENous, BID insulin lispro, 0-6 Units, SubCUTAneous, TID WC ketorolac, 15 mg, IntraVENous, q6h Lidocaine, 1 patch, Topical, Daily magnesium hydroxide, 30 mL, Oral, Daily metoprolol tartrate, 25 mg, Oral, BID mupirocin, , Nasal, BID pantoprazole, 40 mg, Oral, qAM AC polyethylene glycol (PEG) 3350, 17 g, Oral, Daily senna-docusate sodium, 2 tablet, Oral, Nightly simethicone, 80 mg, Oral, BID Continuous Infusions: PRN Meds:PRN medications: calcium gluconate, dextrose, dextrose, glucagon (rDNA), glucose, HYDROmorphone OR HYDROmorphone, ipratropium-albuterol, magnesium sulfate OR magnesium sulfate, ondansetron ODT OR ondansetron, oxyCODONE OR oxyCODONE, potassium chloride OR potassium chloride 20 mEq in sodium chloride 0.9 % 250 mL IVPB OR potassium chloride 40 mEq in sodium chloride 0.9 % 500 mL IVPB, potassium chloride CR, sodium chloride Diagnostic Workup: I reviewed pertinent Laboratory results, Radiographic results, and Other Clinical Notes at the time of today's encounter. Labs: No components found for: LABA1C No components found for: EAG Lab Results Component Value Date NA 136 01/03/2023 K 4.4 01/03/2023 CL 103 01/03/2023 CO2 25 01/03/2023 BUN 23 (H) 01/03/2023 CREATININE 0.80 01/03/2023 GLUCOSE 113 (H) 01/03/2023 CALCIUM 8.5 01/03/2023 No results found for: CHLPL, CHOL No results found for: TRIG No results found for: HDL No results found for: LDLCALC No results found for: VLDL No results found for: CHOLHDLRATIO No results found for: [id number] No results found for: TSH, R1WLAPW, R5AEGUH, THYROIDAB Radiology reportsas per the Radiologist Radiology: ECG 12 lead Result Date: 01/01/2023 Sinus rhythm History/Other: Past Medical History: Past Medical History: Diagnosis Date CHF (congestive heart failure) (CMS/HCC) (HCC) Diabetes mellitus (HCC) GERD (gastroesophageal reflux disease) Hyperlipidemia Hypertension RA (rheumatoid arthritis) (HCC) Seizure (HCC) last seizure 5 months ago nathaniel murray 08/24 Seizures (HCC) Sleep apnea Past Surgical History: Past Surgical History: Procedure Laterality Date CARDIAC CATHETERIZATION COLONOSCOPY CORONARY STENT PLACEMENT 03/22/2018 HYSTERECTOMY Allergy(ies): Allergies Allergen Reactions Prednisone Hives and Nausea And Vomiting Family History: No family history on file. Social History: Social History Tobacco Use Smoking status: Never Smokeless tobacco: Never Vaping Use Vaping Use: Never used Substance Use Topics Alcohol use: Yes Comment: once a year Drug use: Never Portions of the information within this encounter were entered using an electronic dictation system. Best attempts were made to edit/proofread the information prior to note completion. Despite the review of information, some errors may remain. If there are questions related to the information contained within the note please contact the signing physician directly. I spent 35 minutes with the pt which involved coordination of care, medical evaluation, review of records, and/or counseling of the pt regarding his/her condition/disease state/prognosis on the date of this note. Images from the original note were not included. Cardiothoracic Surgery/[facility] Progress Note PATIENT NAME: Lacy Alvarado DATE: 01/03/23 HPI: Lacy Alvarado is a 72 y.o. female was referred to us by Dr. Bhanu Milian. 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 Patient also had an echo done which showed mild (1+) tricuspid valve insufficiency. Dr Rose office note 12/23/2022. She presents for CABG today from the OP setting Surgery/Procedure: 01/01/23: Dr. Rose - CABG x 4 (Official Report Pending) Interval History: 01/03/23, POD# 02. Afebrile, NSR on tele, BP stable, on 2L NC. Lying in bed, awake and alert. Pain present, patient states not feeling as well as yesterday. Poor appetite. No acute events overnight. Review of Systems Constitutional: Positive for fatigue. Negative for chills, diaphoresis and fever. Respiratory: Negative for cough, shortness of breath and wheezing. Cardiovascular: Positive for chest pain. Negative for palpitations and leg swelling. Gastrointestinal: Negative for abdominal distention, abdominal pain, nausea and vomiting. Neurological: Negative for dizziness, syncope and light-headedness. Objective: CT output cc/24hrs: 265 UO cc/24hrs: 435 Vitals: BP: 100/60, MAP (mmHg): 73, BP Method: Automatic Heart Rate: 81 Resp: 15 Temp: 36.6 C (97.8 F), Temp Source: Temporal BMI (Calculated): 31.77 BMP: Recent Labs 01/01/23 1010 01/02/23 0002 01/02/23 0921 01/03/23 0014 NA 140 140 140 136 K 3.6 4.5 4.5 4.4 CL 110* 107 107 103 CO2 20* 21* 23 25 BUN 21* 19* 20* 23* CREATININE 0.77 0.86 0.99 0.80 CALCIUM 9.0 8.3* 8.7 8.5 MG 3.4* 2.3 -- 2.3 PHOS 3.7 -- -- -- CBC: Recent Labs 01/01/23 1230 01/01/23 1412 01/02/23 0002 01/03/23 0014 WBC 9.0 -- 6.1 8.6 HGB 6.9* 9.1* 8.7* 10.1* HCT 20.0* 26.8* 25.7* 29.5* PLT 79* -- 80* 82* MCV 96.7 -- 92.4 93.3 RDW 14.2 -- 16.8* 16.7* INR: Recent Labs 01/01/23 1010 01/02/23 0002 01/03/23 0014 INR 1.3* 1.1 1.1 Physical Exam Vitals reviewed. Constitutional: General: She is not in acute distress. Appearance: She is not ill-appearing or diaphoretic. Neck: Comments: Central line. Cardiovascular: Rate and Rhythm: Normal rate and regular rhythm. Pulses: Normal pulses. Heart sounds: No murmur heard. Pulmonary: Effort: Pulmonary effort is normal. Breath sounds: No wheezing, rhonchi or rales. Comments: Shallow breaths, diminished in bases bilaterally. Abdominal: General: There is no distension. Palpations: Abdomen is soft. Tenderness: There is no abdominal tenderness. Comments: Chest tubes in place. Genitourinary: Comments: Araya. Skin: General: Skin is warm and dry. Comments: MSI well approximated, no redness, warmth or drainage noted. Neurological: General: No focal deficit present. Mental Status: She is alert and oriented to person, place, and time. Psychiatric: Mood and Affect: Mood normal. Behavior: Behavior normal. Thought Content: Thought content normal. Judgment: Judgment normal. Assessment: CAD s/p CABG (previous stent) CHF T2DM HLD Epilepsy HTN RA LINA Post operative Pulm Management: Normal Post-operative Course Post-operative Atrial Fibrillation: []Yes [x] No Acute blood loss anemia/consumptive thrombocytopenia Plan: Patient Status: Telemetry Continue current medications. Aspirin, statin and BB. -Will titrate up BB as BP can tolerate. Lasix 40mg IV BID. Add toradol for pain x 24 hours. Likely remove chest tubes after getting to chair. Add MOM to bowel regimen. Home Depakote and Cymbalta. Hold heparin DVT prophy d/t thrombocytopenia. Encourage PO intake. Daily labs with PRN electrolyte replacement protocols. PT/OT: Continue to assess. Out of bed for meals, progressive mobility. Pulmonary hygiene: IS and Acapella GI prophy: PO protonix DVT prophy:TEDs and SCDs Disposition: TBD. Central Line: [x]Yes [] No Arterial Line: []Yes [x] No Araya: [x]Yes [] No Restraints: []Yes [x] No Patient discussed and plan of day developed from multidisciplinary rounds between Cardiothoracic Surgery (Cardiothoracic Surgeon, SONYA) and Critical Care Attending Cardiac Core Medications: ASA, Statin, and BB EF: Nomal (SIS 01/01/23) Blood Conservation: Transfused post-op. Plug Sorter: [facility] Physical Therapy Facility/Department: [facility] [place] Physical Therapy Initial Evaluation NAME: Lacy Alvarado : 1950 Date of Service: 01/02/2023 Discharge Recommendations: Continue to assess pending progress Assessment Requires PT Follow-Up: Yes Assessment: The pt is admitted s/p CABG and will benefit from therapy for the listed impairments and to improve her overall functional capacity. She is limited by pain and overall decreased endurance. Min assist was needed for mobility this date and rest breaks were needed as well between standing trials. Pain guarding was observed with all UE movement and initial LE movement as well as transfers. PT will continue to assess for discharge needs as lines and tubes are removed and pain is better controlled. If pt does return home she will need to be able to do 3 flights of stairs. Performance Deficits/Impairments: Decreased functional mobility , Decreased endurance, Increased pain, Decreased ADL status, Decreased strength, Decreased posture, Decreased balance Treatment Diagnosis: limited mobility Decision Making: Medium Complexity Barriers to Learning: none Treatment Initiated : one FA Barriers to Learning: none Activity Tolerance Activity Tolerance: Patient limited by fatigue, Patient limited by pain, Patient limited by endurance Patient Diagnosis(es): The primary encounter diagnosis was CAD in [place] artery. A diagnosis of Coronary artery disease involving coronary bypass graft, unspecified whether angina present, unspecified whether [place] or transplanted heart was also pertinent to this visit. has a past medical history of CHF (congestive heart failure) ([facility]/HCC) ([facility]), Diabetes mellitus ([facility]), GERD (gastroesophageal reflux disease), Hyperlipidemia, Hypertension, RA (rheumatoid arthritis) ([facility]), Seizure ([facility]), Seizures ([facility]), and Sleep apnea. has a past surgical history that includes Cardiac catheterization; Coronary stent placement (03/22/2018); Hysterectomy; and Colonoscopy. Restrictions Restrictions/Precautions Restrictions/Precautions: General Precautions, Surgical Protocols Required Braces or Orthoses?: No Position Activity Restriction Sternal Precautions: No Pushing, No Pulling, 10# Lifting Restrictions Sternal Precautions: Yes Other position/activity restrictions: tele, catheter, chest tubes, PIV, Vision/Hearing Vision: Impaired Vision Exceptions: Wears glasses for reading Hearing: Functional/adequate for paticipation in therapy Cognition/Orientation Overall Cognitive Status: WFL Overall Orientation Status: Within Functional Limits Subjective General Chart Reviewed: Yes Patient Assessed for Rehabilitation Services: Yes Family / Caregiver Present: No Diagnosis: CAD in [place] artery s/p CABG on 01/01 Follows Commands: Within Functional Limits Subjective Subjective: Pt sitting up in chair and agreed to PT. 01/11 pain reported in chest through incision site. RN present to provide pain meds. Patient Stated Goal: to get strong enough to go home Social/Functional History Social/Functional History Lives With: (grandson) Type of Home: Apartment Home Layout: One level Home Access: Stairs to enter with rails Entrance Stairs - Number of Steps: 3 flights, pt is on third floor and does not have an elevator ADL Assistance: Independent Homemaking Assistance: Independent Homemaking Responsibilities: Yes Ambulation Assistance: Independent With device?: No Transfer Assistance: Independent Type of Occupation: Pt is currently not working but was working 2 jobs prior to admission, both physical in nature Objective AROM RLE (degrees) RLE General AROM: grossly WFL, pain guarding present AROM LLE (degrees) LLE General AROM: grossly WFL, pain guarding present AROM RUE (degrees) RUE General AROM: shoulder elevation observed to 90 degrees secondary to pain guarding, elbow, wrist and hand WFL AROM LUE (degrees) LUE General AROM: shoulder elevation observed to 90 degrees secondary to pain guarding, elbow, wrist and hand WFL Strength RLE Comment: 3+/5 observed through function, MMT limited by pain guarding Strength LLE Comment: 3+/5 observed through function, MMT limited by pain guarding Strength RUE Comment: 3/5 observed through function, MMT limited by pain guarding Strength LUE Comment: 3/5 observed through function, MMT limited by pain guarding Tone RLE RLE Tone: Normotonic Tone LLE LLE Tone: Normotonic Sensation Overall Sensation Status: Intact Transfers Sit to Stand: Minimal Assistance Stand to sit: Minimal Assistance Comment: two trials from chair with cues for nose over toes, Ambulation Ambulation: Yes Ambulation 1 Surface 1: Level tile Device 1: Hand held assist Assistance 1: Minimum assistance, Minimal verbal cues Quality of Gait Comment 1: shuffle, guarded posture, Distance (ft) 1: 5 small steps forwards and backwards for 4 trials with min assist, Comments 1: pain limited and limited by lines Balance Posture: Fair Sitting - Static: Good, - Sitting - Dynamic: Good, - Standing - Static: Fair, + Standing - Dynamic: Fair, + Comments: Pt stood at edge of chair with min assist and performed standing march for several reps for one trial and stood statically for her second trial with min assist and cues for posture. Overall pain did not increase with mobility secondary to medication. Pt did not report feeling lightheaded or dizzy while up. Pt stood for several minutes each trial. Exercises Upper Extremity: P + C exercises 1 and 3 performed for 5-6 reps each, remaining exercises discussed but pain and fatigue limited attempted performance. Plan Times per Week: 5-7 Plan Weeks: 3 Current Treatment Recommendations: Strengthening, ROM, Balance Training, Functional Mobility Training, Transfer Training, ADL/Self-care Training, Stair training, Gait Training, Endurance Training, Safety Education & Training, Home Exercise Program, Equipment Evaluation, Education, & procurement, Patient/Caregiver Education & Training Safety Safety Devices Safety Devices in Place: Yes Type of Devices: Left in chair, Call light within reach, No alarms engaged upon entry into room, Nurse notified Restraints Restraints Initially in Place: No Outcomes Score AM-PAC Score AM-PAC Inpatient Mobility Raw Score (No Stairs) : 13 Goals Encounter Problems Encounter Problems (Active) Cardiac Patient will perform bed mobility with independence in order to improve independence and prepare for out of bed mobility. Start: 01/02/23 Expected End: 01/23/23 Patient will complete sit to stand transfer with independence to LRD in order to improve safety and prepare for out of bed mobility. Start: 01/02/23 Expected End: 01/23/23 Patient will ambulate 150 feet or ambulate 5 minutes with independence with RPE of 14 or lower. Start: 01/02/23 Expected End: 01/23/23 Patient will ascend and descend 3 flights of stairs with independence rail for balance only. Start: 01/02/23 Expected End: 01/23/23 Patient will be independent with P&C exercises. Start: 01/02/23 Expected End: 01/23/23 Patient will be independent with managing secretions and home walking program. Start: 01/02/23 Expected End: 01/23/23 Education Education Given To: Patient Education Provided: Goals, PT Role, Plan of Care, Precautions Education Provided Comments: sternal precuations Education Method: Verbal Barriers to Learning: None Education Outcome: Verbalized understanding Therapy Time Individual Co-treatment Time In 929 (one eval mod complex, one FA) Time Out 0955 Minutes 25 Timed Code Treatment Minutes: 8 Minutes PT wore gloves throughout entire session with patient. Patient s Physical Therapy Plan of Care supervision is transferred to [facility] Rehab Department Physical Therapist. Aleksandr Higuera PT Department of Internal Medicine Division of Endocrinology, Diabetes, & Metabolism Endocrinology Note Patient Name: Lacy Alvarado : 1950 AGE: 72 y.o. [facility]: [facility] Admission Date: 01/01/2023 Visit Date: 01/02/2023 Reason for Endocrine Consult: post op heart Provider/Team Requesting Consult: cts PCP: MAYDA GARCIA Outpt Loan Interviewer Mortgage: No ASSESSMENT: Cad s/p Cabgx4 Dm2 with hyperglycemia without fpc insulin Stress hyperglycemia Chf Hld/htn PLAN: discontinue insulin gtt has been off most of night BG now 112 No need for bridge basal insulin at this time Start Humalog low dose SS ICU goal <180 GMF goal <150 POCT achs Hypoglycemia per protocol Carb controlled diet ANTICIPATED ENDOCRINE HOME GOING RECOMMENDATIONS: Optimized for Discharge from Endocrine standpoint: No Home Going Endocrine Rx Recommendations-- Likely restart Januvia May benefit from SGLT2i or switch to GLP1 Outpt Follow Up-- pcp SUBJECTIVE/HPI: CHIEF COMPLAINT: No chief complaint on file. Cabgx4 Noted hx dm2 in chart Patient sitting up in chair Not much appetite, apple sauce at bedside but hasn't eaten much Denies N/V C/o pain at incision Reviewed plan and reason she may or may not need insulin, stress, pain etc Patient states her BG was not controlled a few years after could not tolerate Metformin, she was trying to get A1c down recently to have knee surgery, states she lost 10 lbs after changing diet and taking januvia Well controlled now Bgl below Insulin gtt has been off most of night, will discontinue CT in place Spoke to nursing in room Type of DM: 2 Onset of DM: ~5 years ( was on Metformin initially but did not tolerate) Home DM Medication Regimen: januvia 100 mg po daily DM control (last A1c/glucose data): Lab Results Component Value Date HGBA1C 6.7 (H) 12/29/2022 Glucose Date/Time Value Ref Range Status 01/02/2023 09:27 AM 121 (H) 70 - 100 mg/dL Final 01/02/2023 07:05 AM 132 (H) 70 - 100 mg/dL Final 01/02/2023 06:02 AM 132 (H) 70 - 100 mg/dL Final 01/02/2023 05:09 AM 120 (H) 70 - 100 mg/dL Final 01/02/2023 04:09 AM 145 (H) 70 - 100 mg/dL Final 01/02/2023 02:58 AM 136 (H) 70 - 100 mg/dL Final Review of Systems ROS negative except for those mentioned in HPI. OBJECTIVE: Vitals: 01/02/23 0700 01/02/23 0705 01/02/23 0715 01/02/23 0847 BP: BP Location: Patient Position: Pulse: 97 97 91 Resp: 13 14 10 Temp: TempSrc: SpO2: (!) 88% 95% 96% Weight: Height: 5' 2 (1.575 m) Physical Exam Vitals and nursing note reviewed. Constitutional: General: She is in acute distress. Appearance: She is obese. HENT: Head: Normocephalic. Eyes: Pupils: Pupils are equal, round, and reactive to light. Cardiovascular: Rate and Rhythm: Normal rate and regular rhythm. Pulses: Normal pulses. Heart sounds: Normal heart sounds. Pulmonary: Effort: Pulmonary effort is normal. Breath sounds: Normal breath sounds. Abdominal: General: Bowel sounds are normal. Musculoskeletal: General: Normal range of motion. Cervical back: Normal range of motion. Right lower leg: Edema present. Left lower leg: Edema present. Skin: General: Skin is warm and dry. Comments: Sternal inc clean and dry CT intact Neurological: Mental Status: She is alert and oriented to person, place, and time. Psychiatric: Mood and Affect: Mood normal. Behavior: Behavior normal. 24 hour intake/output: Intake/Output Summary (Last 24 hours) at 01/02/2023 0928 Last data filed at 01/02/2023 0600 Gross per 24 hour Intake 4316.8 ml Output 2643 ml Net 1673.8 ml Diet: Adult diet Regular; 5 carb choices (75 gm/meal) Medications (as per EMR): HomeMeds: Current Outpatient Medications Medication Instructions aspirin 81 mg, Oral, Daily atorvastatin (LIPITOR) 80 mg, Oral, Daily calcium citrate (CALCITRATE) 950 mg, Oral, Daily carvedilol (Coreg) 12.5 MG tablet Oral, 2 times daily with meals clopidogrel (PLAVIX) 75 mg, Oral, Daily divalproex (DEPAKOTE) 1,000 mg, Oral, 2 times daily, 1,000 mg in am and 1,200 mg in evening DULoxetine (CYMBALTA) 30 mg, Oral, Daily, Do not crush or chew. hydroxychloroquine (PLAQUENIL) 200 mg, Oral, 2 times daily isosorbide mononitrate ER (IMDUR) 60 mg, Oral, Daily, Do not crush or chew. losartan (COZAAR) 50 mg, Oral, 2 times daily Multiple Vitamin (multivitamin) capsule 1 capsule, Oral, Daily mupirocin (Bactroban) 2 % ointment Apply liberal amount per nostril the night before surgery and then again the morning of surgery pantoprazole (PROTONIX) 40 mg, Oral, Daily before breakfast, Do not crush, chew, or split. polyethylene glycol (PEG) 3350 (MIRALAX) 17 g, Oral, Daily SITagliptin (JANUVIA) 100 mg, Oral, Daily traMADol (ULTRAM) 50 mg, Oral Scheduled Meds:acetaminophen, 1,000 mg, Oral, q8h aspirin, 81 mg, Oral, Daily atorvastatin, 80 mg, Oral, Daily carvedilol, 3.125 mg, Oral, BID WC ceFAZolin, 2,000 mg, IntraVENous, q8h chlorhexidine, 15 mL, Mouth/Throat, BID divalproex, 1,250 mg, Oral, Nightly divalproex, 500 mg, Oral, q AM DULoxetine, 30 mg, Oral, Daily Lidocaine, 1 patch, Topical, Daily mupirocin, , Nasal, BID pantoprazole, 40 mg, IntraVENous, Daily Phenylephrine HCl (Pressors), , , polyethylene glycol (PEG) 3350, 17 g, Oral, Daily senna-docusate sodium, 2 tablet, Oral, Nightly Continuous Infusions:insulin regular, 1-50 Units/hr, Last Rate: Stopped (01/02/23 0509) nitroprusside, 0.1-3 mcg/kg/min, Last Rate: Stopped (01/02/23 0715) PRN Meds:PRN medications: calcium gluconate, dextrose, dextrose, glucagon (rDNA), glucose, HYDROmorphone OR HYDROmorphone, ipratropium-albuterol, magnesium hydroxide, magnesium sulfate OR magnesium sulfate, nitroprusside, ondansetron ODT OR ondansetron, oxyCODONE OR oxyCODONE, Phenylephrine HCl (Pressors), potassium chloride OR potassium chloride 20 mEq in sodium chloride 0.9 % 250 mL IVPB OR potassium chloride 40 mEq in sodium chloride 0.9 % 500 mL IVPB, potassium chloride CR, sodium chloride Diagnostic Workup: I reviewed pertinent Laboratory results, Radiographic results, and Other Clinical Notes at the time of today's encounter. Labs: No components found for: LABA1C No components found for: EAG Lab Results Component Value Date NA 140 01/02/2023 K 4.5 01/02/2023 CL 107 01/02/2023 CO2 21 (L) 01/02/2023 BUN 19 (H) 01/02/2023 CREATININE 0.86 01/02/2023 GLUCOSE 134 (H) 01/02/2023 CALCIUM 8.3 (L) 01/02/2023 No results found for: CHLPL, CHOL No results found for: TRIG No results found for: HDL No results found for: LDLCALC No results found for: VLDL No results found for: CHOLHDLRATIO No results found for: [id number] No results found for: TSH, D6MMDOX, B1ABAUH, THYROIDAB Radiology reportsas per the Radiologist Radiology: ECG 12 lead Result Date: 01/01/2023 Sinus rhythm History/Other: Past Medical History: Past Medical History: Diagnosis Date CHF (congestive heart failure) (CMS/HCC) (HCC) Diabetes mellitus (HCC) GERD (gastroesophageal reflux disease) Hyperlipidemia Hypertension RA (rheumatoid arthritis) (HCC) Seizure (HCC) last seizure 5 months ago nathaniel murray 08/24 Seizures (HCC) Sleep apnea Past Surgical History: Past Surgical History: Procedure Laterality Date CARDIAC CATHETERIZATION COLONOSCOPY CORONARY STENT PLACEMENT 03/22/2018 HYSTERECTOMY Allergy(ies): Allergies Allergen Reactions Prednisone Hives and Nausea And Vomiting Family History: No family history on file. Social History: Social History Tobacco Use Smoking status: Never Smokeless tobacco: Never Vaping Use Vaping Use: Never used Substance Use Topics Alcohol use: Yes Comment: once a year Drug use: Never Portions of the information within this encounter were entered using an electronic dictation system. Best attempts were made to edit/proofread the information prior to note completion. Despite the review of information, some errors may remain. If there are questions related to the information contained within the note please contact the signing physician directly. I spent 20 minutes with the pt which involved coordination of care, medical evaluation, review of records, and/or counseling of the pt regarding his/her condition/disease state/prognosis on the date of this note. Associated attestation - Angela Smith MD - 01/02/2023 1:35 PM EDT I performed a history and physical examination of the patient. I have reviewed the patient's chart including pertinent history, medications, labs, radiology, and other reports. I reviewed the resident/SONYA's note, agree with the documented findings and plan of care (with modifications noted if any), and discussed the management plan. I have performed a substantive portion of the the medical decision making. Patient now extubated. She is up in the recliner. Has not been eating much. She reports taking metformin in the past but had significant diarrhea. Has done well on Januvia. She also has lost weight through diet. Blood sugars fairly stable. Only requiring none to 0.5 units/h on the insulin infusion. Adult diet Regular; 5 carb choices (75 gm/meal) Estimated Creatinine Clearance: 51.4 mL/min (by C-G formula based on SCr of 0.99 mg/dL). BP 125/50 Pulse 91 Temp 37.4 C (99.3 F) (Bladder) Resp 10 Ht 5' 2 (1.575 m) Wt 173 lb 11.6 oz (78.8 kg) SpO2 96% BMI 31.77 kg/m Obese, awake, alert, not in distress, RRR, chest incision intact, clear breath sounds, +chest tubes, abdomen soft, no edema. Dx: Type 2 DM, with cardiac complications. CAD s/p CABG. Plan: - will transition to subcutaneous insulin with Humalog sliding scale 3 times daily - will hold off on scheduled insulin at this time - continue blood glucose monitoring - discussed postop hyperglycemia management and goals of therapy - patient likely will resume Januvia on discharge for DM; can also consider other agents such as SGLT-2i or GLP-1a - will follow - will FU with PCP outpt Total time 20 minutes which include review of records, counseling, management, and coordination of care as documented in note. Images from the original note were not included. Cardiothoracic Surgery/[facility] Progress Note PATIENT NAME: Lacy Alvarado DATE: 01/02/23 HPI: Lacy Alvarado is a 72 y.o. female was referred to us by Dr. Bhanu Milian. 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 Patient also had an echo done which showed mild (1+) tricuspid valve insufficiency. Dr Rose office note 12/23/2022. She presents for CABG today from the OP setting Surgery/Procedure: 01/01/23: Dr. Rose - CABG x 4 (Official Report Pending) Interval History: 01/02/23, POD# 01: Afebrile, NSR/ST on tele, BP requiring nitroprusside to keep MAP <130, extubated post-op and on 2L NC currently. 2uPRBC given yesterday and fluid boluses overnight. Currently sitting up in chair, awake and alert. Pain tolerable. Review of Systems Constitutional: Positive for fatigue. Negative for chills, diaphoresis and fever. Respiratory: Negative for cough, shortness of breath and wheezing. Cardiovascular: Positive for chest pain. Negative for palpitations and leg swelling. Gastrointestinal: Negative for abdominal distention, abdominal pain, nausea and vomiting. Neurological: Negative for dizziness, syncope and light-headedness. Objective: CT output cc/24hrs: 543 UO cc/24hrs: 1,920 Vitals: BP: 125/50, MAP (mmHg): 57, BP Method: Arterial line Heart Rate: 104 Resp: 17 Temp: 37.4 C (99.3 F), Temp Source: Bladder BMI (Calculated): 31.45 BMP: Recent Labs 01/01/23 1010 01/02/23 0002 NA 140 140 K 3.6 4.5 CL 110* 107 CO2 20* 21* BUN 21* 19* CREATININE 0.77 0.86 CALCIUM 9.0 8.3* MG 3.4* 2.3 PHOS 3.7 -- CBC: Recent Labs 01/01/23 1010 01/01/23 1230 01/01/23 1412 01/02/23 0002 WBC 7.1 9.0 -- 6.1 HGB 7.1 7.2* 6.9* 9.1* 8.7* HCT 21.4* 20.0* 26.8* 25.7* PLT 78* 79* -- 80* MCV 97.2 96.7 -- 92.4 RDW 14.3 14.2 -- 16.8* INR: Recent Labs 01/01/23 1010 01/02/23 0002 INR 1.3* 1.1 Physical Exam Vitals reviewed. Constitutional: General: She is not in acute distress. Appearance: She is not ill-appearing or diaphoretic. Neck: Comments: Central line. Cardiovascular: Rate and Rhythm: Regular rhythm. Tachycardia present. Pulses: Normal pulses. Heart sounds: No murmur heard. Pulmonary: Effort: Pulmonary effort is normal. Breath sounds: No wheezing, rhonchi or rales. Comments: Shallow breaths, diminished in bases bilaterally. Abdominal: General: There is no distension. Palpations: Abdomen is soft. Tenderness: There is no abdominal tenderness. Comments: Chest tubes in place. Genitourinary: Comments: Araya. Skin: General: Skin is warm and dry. Comments: MSI well approximated, no redness, warmth or drainage noted. Neurological: General: No focal deficit present. Mental Status: She is alert and oriented to person, place, and time. Psychiatric: Mood and Affect: Mood normal. Behavior: Behavior normal. Thought Content: Thought content normal. Judgment: Judgment normal. Assessment: CAD s/p CABG (previous stent) CHF T2DM HLD Epilepsy HTN RA LINA Post operative Pulm Management: Normal Post-operative Course Post-operative Atrial Fibrillation: []Yes [x] No Acute blood loss anemia/consumptive thrombocytopenia Plan: Patient Status: ICU Transfused 2uPRBC yesterday, continue to monitor. Hgb->6.9->9.1->8.7. Start aspirin, statin and BB. -Low dose metoprolol. Wean nitroprusside as able, goal SBP<130. Remove arterial line. Home dose Depakote for epilepsy, confirmed dosing with patient. Home dose Cymbalta. Chest tubes to water seal. Hold heparin DVT prophy d/t thrombocytopenia. Re-check BMP this AM, will re-dose toradol if creat OK. Bowel regimen. -Add MOM tomorrow. Simethicone for large gastric bubble. Advance diet, encourage PO intake. Can remove araya later today. PT/OT: Will need evaluated. Pulmonary hygiene: IS and Acapella GI prophy: IV protonix DVT prophy:TEDs and SCDs Disposition: TBD. Central Line: [x]Yes [] No Arterial Line: [x]Yes [] No Araya: [x]Yes [] No Restraints: []Yes [x] No Patient discussed and plan of day developed from multidisciplinary rounds between Cardiothoracic Surgery (Cardiothoracic Surgeon, SONYA) and Critical Care Attending Cardiac Core Medications: ASA, Statin, and BB EF: Nomal (SIS 01/01/23) Blood Conservation: Transfused post-op. Plug Sorter: [place] [facility] Associated attestation - Carlos Chavarria DO - 01/02/2023 10:54 AM EDT Patient is SP CABG on 01/01/23 Post op course uncomplicated, had some bleeding s/p PRBCs but seems to have resolved. Pain is well controlled this AM Neuro: -GCS 15 - Pain control adequate - PRN usage minimal - VPA per home regimen for seizures, last sz 3 months prior Cardiac: - No swan - NO vasopressors/inotropes - Maintain MAP >65 Pulm: - Chest tubes minimal output - Extubated 01/01 without issue -CXR - No infiltrate GI: - Diet- PO - Ppx PPI : - Araya to come out - Electrolytes acceptable - Fluid balance- +2L, add lasix if not even by tomorrow ID: - Observe off abx other than surgical prophy - afebrile Endo: - Insulin drip per protocol - No indication for steroids Heme: - ppx SCDs - hbg/plt Lab Results Component Value Date HGB 8.7 (L) 01/02/2023 I have reviewed and agree with the SONYA note. Critical care time 35 minutes documented in this encounter [facility] 01-10-2023 Note Formatting of this n ote is different from the original. Images from the original note were not included. CARE COORDINATION DAILY NOTE/UPDATE Medical Plan: sp CABG x 3 POD # 9. Discharge Plan: [facility] Discharge Barriers: pending medical clearance Received a message from Anna COLLINS I heard from [facility] okay to admit. Stated by Shruthi Marshall if you have any questions. Call placed to Shruthi Marshall to confirm and make arrangements, no answer, left voicemail with my contact information. Chart and Careport reviewed. After hours form on chart. Expected discharge, Discharge Milestones, and Rapid Rounding reviewed and updated. TCC will continue to follow. NDUM: AUTH obtained and patient can discharge once medically ready, tomorrow am is plan. Dr. Rose updated. Anna COLLINS updated. Discharge Milestones and Delays Expected Date/Time: 01/11/[address] discharge order Complete med reconciliation Case mgmt discharge readiness Clinical Stability Diagnsotic Workup Expected Discharge History Expected Date/Time Set By Reviewed At 01/11/2023 Alaina Truong RN 01/10/2023 2:17 PM Precert pending 01/09/2023 Delores Mullins RN 01/09/2023 10:21 AM 01/10/2023 Delores Mullins RN 01/07/2023 9:47 AM 01/07/2023 Delores Mullins RN 01/06/2023 8:10 AM PT/OT requested 01/06/2023 Delores Mullins RN 01/02/2023 2:07 PM 01/06/2023 Shruthi Weir, ICE SELLER - TRANSPORT MANAGER 01/01/2023 11:16 AM 01/06/2023 Uzair Rose MD 01/01/2023 5:45 AM Length of Stay (Days): 9 GMLOS: 5.9 [facility] 01-09-2023 Note Formatting of this n ote is different from the original. Images from the original note were not included. Care Management Progress Note Patient remains on HLU sp CABG x 3 POD # 8. [facility] can accept, spoke with Shauna in admissions, precert started this morning. Verified no COVID or 7000 needed as a they are short term only. After hours completed, left on chart and updated alyssa Holloway over the phone. Discharge Milestones and Delays Expected Date/Time: 01/09/[address] discharge order Complete med reconciliation Case mgmt discharge readiness Clinical Stability Diagnsotic Workup Expected Discharge History Expected Date/Time Set By Reviewed At 01/09/2023 Delores Mullins RN 01/09/2023 10:21 AM Precert pending 01/10/2023 Delores Mullins RN 01/07/2023 9:47 AM 01/07/2023 Delores Mullins RN 01/06/2023 8:10 AM PT/OT requested 01/06/2023 Delores Mullins RN 01/02/2023 2:07 PM 01/06/2023 Shruthi Weir, ICE SELLER - TRANSPORT MANAGER 01/01/2023 11:16 AM 01/06/2023 Uzair Rose MD 01/01/2023 5:45 AM Length of Stay (Days): 8 GMLOS: 5.9 [facility] 01-09-2023 Hospital Discharg e instructions Malik Tabares, GORDO - TRANSPORT MANAGER - 01/09/2023 8:42 AM EDT Cardiothoracic Surgery: Symptom Management Office phone number: [phone] Office is open 8:30 am -4 pm. If you need assistance after hours, this will direct you to a nursing hotline. GREEN ZONE: All Clear- Your Symptoms Are Under Control Incisional pain is managed by taking Acetaminophen and/or pain medication No increase in shortness of breath No increase in leg swelling or weight gain No frequent lightheadedness/dizziness No redness or drainage from incisions. Small amount of thin, blood tinged or yellow drainage is not uncommon for few days post discharge This Means You Should: Continue current plan of care Continue taking your medications as prescribed Continue activity as tolerated, including 4 walks daily and PT exercised Eat healthy diet, no caffeine Keep all follow-up appointments No smoking YELLOW ZONE: Caution Incisional pain that is getting worse and/or not managed by pain medication Increase in shortness of breath, especially when at rest Increased leg swelling or new leg swelling Weight gain (more than 3lb in 1 day or 5lb in 1 week) Lightheadedness, dizziness, or heavy sweating Redness and/or thick drainage from incision Fever/chills This Means You Should: Call cardiothoracic surgery line for further instructions: [phone] Office is open 8:30 am -4 pm. If you need assistance after hours, this will direct you to a nursing hotline. RED ZONE: Medical Alert Severe shortness of breath at rest Severe chest pain/pressure or pain that radiates to neck, jaw, back, and/or arm that is NOT relieved with rest and pain medication. May be similar to pain prior to surgery Passing out or fainting This Means You Should: call EMS or seek care in Emergency Department Anna Escalera RN - 01/09/2023 7:06 AM EDT Continuity of Care Form Patient Name: Lacy Alvarado : 1950 Admit date: 01/01/2023 Discharge date: 01/11/2023 Code Status Order: Full Code Advance Directives: N Admitting Physician: Uzair Rose MD PCP: MAYDA GARCIA Discharging Nurse: Anna Escalera RN Discharging Hospital Unit/Room#: T1-103/T1-103 A Discharging Unit Emergency Contact: Extended Emergency Contact Information Primary Emergency Contact: Devendra Samuel Mobile Relation: Mother Secondary Emergency Contact: Amie Gomez Mobile Relation: Niece Past Surgical History: Past Surgical History: Procedure Laterality Date CARDIAC CATHETERIZATION COLONOSCOPY CORONARY STENT PLACEMENT 03/22/2018 HYSTERECTOMY Immunization History: Immunization History Administered Date(s) Administered Moderna SARS-CoV-2 Vaccination 07/11/2020, 08/09/2020, 05/24/2021 Active Problems: Medical Problems Problem List * (Principal) CAD in [place] artery Allergic disorder Amnesia Arthritis Overview Signed 01/01/2023 3:09 PM by Juan J Zuluaga MD Reported to be RA per patient. Was with Rheum, will get records. On plaquinil for 1 year, no problems. Osteoarthritis of spine with radiculopathy, lumbar region Back strain Calcific tendinitis Cerebrovascular disease Cervico-occipital neuralgia Chronic diastolic heart failure (HCC) Chronic rhinitis Compression fracture of lumbar vertebra (HCC) Contusion of sacral region Cough DDD (degenerative disc disease), lumbar Dissociative disorder DM2 (diabetes mellitus, type 2) (HCC) Overview Signed 01/01/2023 3:09 PM by Juan J Zuluaga MD Last Assessment & Plan: When she wakes up in the morning sugars are in the 120 range. Those numbers are running in the range of 118 or more depends on what she eats. 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 2015.her neurolgist is in [place], and her recent valproic acid levels were low, so we discussed that she should let her neuro know about it. Gastroesophageal reflux disease Berenice's deformity, right Headache History of coronary artery stent placement Hyperlipemia Increased frequency of urination Muscle pain Vitamin D deficiency Overview Signed 01/01/2023 3:09 PM by Juan J Zuluaga MD Dx 1 year ago, and now on monthly dose. Last Vit D 08/20/09, 43.9 therapeutic. Thyroid nodule Overview Signed 01/01/2023 3:09 PM by Juan J Zuluaga MD 09/12/16: She had a left nodule biopsied 2013 c/w colloid nodule and current findings are c/w goiter. Thyroid US follow up in 1 year advised. Type 2 diabetes mellitus with hyperglycemia (CMS/HCC) (HCC) Tendonitis, Achilles, right Shoulder pain Primary hypertension Pneumonia Pain of left upper arm Pain Osteoporosis Osteopenia Overview Signed 01/01/2023 3:09 PM by Juan J Zuluaga MD BMD 10/11 Osteoarthritis of knee LINA (obstructive sleep apnea) Overview Signed 01/01/2023 3:09 PM by Juan J Zuluaga MD DME: Camacho Titration done @ [facility] 03/08/2012 recommended CPAP @ 11 cm of H2O with humidification and EPR setting of 3. Olecranon bursitis Obesity Numbness of upper extremity Isolation/Infection: No active isolations No active infections Nurse Assessment: Last Vital Signs: BP 110/59 (BP Location: Left arm, Patient Position: Lying) Pulse 80 Temp 36.5 C (97.7 F) (Temporal) Resp 16 Ht 5' 2 (1.575 m) Wt 171 lb 4.8 oz (77.7 kg) SpO2 92% BMI 31.33 kg/m Last documented pain score (0-10 scale): Last Weight: Wt Readings from Last 1 Encounters: 01/09/23 171 lb 4.8 oz (77.7 kg) Mental Status: MAGALI Patient Mental Status: oriented and alert IV Access: MAGALI IV Access: None Nursing Mobility/ADLs: Walking Minimal assistance Transfer Independent Bathing Minimal assistance Dressing Minimal assistance Toileting Minimal assistance Feeding Minimal assistance Lumber Salvager Independent Med Delivery yes Wound Care Documentation and Therapy: Wound/Incision 01/01/23 Incision Sternum (Active) Site Assessment Clean;Dry;Intact 01/09/23 0400 Closure Approximated;Glue;Open to air 01/06/23 0800 Odor None 01/09/23 0400 Drainage Amount None 01/09/23 0400 Primary Dressing Dermabond 01/09/23 0400 Dressing Status Clean, dry & intact 01/09/23 0000 Number of days: 7 Wound/Incision 01/01/23 Incision Pretibial Left (Active) Site Assessment Clean;Dry;Intact 01/09/23 0400 Closure Approximated;Glue;Open to air 01/06/23 0800 Odor None 01/09/23 0400 Drainage Amount None 01/09/23 0400 Treatments Cleansed 01/03/23 2000 Primary Dressing Dermabond 01/09/23 0400 Dressing Status Clean, dry & intact 01/09/23 0400 Number of days: 7 Elimination: Continence: Bowel: no Bladder: no Urinary Catheter: None Colostomy/Ileostomy/Ileal Conduit: None Date of Last BM: 01/11/2023 Intake/Output Summary (Last 24 hours) at 01/09/2023 0706 Last data filed at 01/09/2023 0530 Gross per 24 hour Intake 240 ml Output 500 ml Net -260 ml I/O last 3 completed shifts: In: 290 (3.7 mL/kg) [P.O.:290] Out: 900 (11.6 mL/kg) [Urine:900 (0.3 mL/kg/hr)] Weight: 77.7 kg Safety Concerns: at risk for falls Impairments/Disabilities: none Nutrition Therapy: Current Nutrition Therapy: Oral diet: carb control 5 carbs/meal (2000kcals/day) Routes of Feeding: oral Liquids: no restrictions Daily Fluid Restriction: no Last Modified Barium Swallow with Video (Video Swallowing Test): not done Treatments at the Time of Hospital Discharge: Respiratory Treatments: Duo-Neb TID Oxygen Therapy: NONE Ventilator: No ventilator support Rehab Therapies: physical therapy Weight Bearing Status/Restrictions: no restriction Other Medical Equipment (for information only, NOT a DME order): walker Other Treatments: NONE Patient's personal belongings (please select all that are sent with patient): glasses and adams and box of personal items RN SIGNATURE: MANAGEMENT/SOCIAL WORK SECTION Inpatient Status Date: 01/01/2023 Readmission Risk Assessment Score: @[email or web address]@ Discharging to Facility/ Agency Name: [facility] Address: [address] [place] [address] Fax: Dialysis Facility (if applicable) Name: Address: Dialysis Schedule: Phone: Fax: Ground Wirer/Director Of Database Marketing signature: ICIAN SECTION Prognosis: good Condition at Discharge: stable Rehab Potential (if transferring to Rehab): good Recommended Labs or Other Treatments After Discharge: Wound care/dressing changes: -Surgical incisions leave open to air, cleanse daily with mild soap & warm water, pat dry, no lotion or powders on incision.Call if incision becomes reddened, opens or drains. Respiratory Care: -Cough and Deep Breath; Use incentive spirometry 10 times every hour while awake for 2 weeks. -Oxygen therapy-prn- Maintain oxygen sat> 92% Medications: -see Medication reconciliation (Med rec) Additional Orders: -Sternal precautions (no lifting, pushing, pulling >10 lbs) for 6 weeks-use heart pillow -Vitals every 8 hours while awake-call for fever and chills -Daily weights- call for weight gain -Wear TEDs during day and off at night. Activity/Weight Bearing: -Up with assistance: up in chair for all meals, ambulate 3-4 times a day -Ok to shower with assist (if pt has IV line then only if completely covered) Therapies: -PT: Eval and treat OT: eval and treat Physician Certification: I certify the above information and transfer of Lacy Alvarado is necessary for the continuing treatment of the diagnosis listed and that she requires [facility] facility for less than 30 days. Update Admission H&P: Changes in H&P as follows: see below 72 y.o. female was referred by Dr. Bhanu Milian. 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 Patient also had an echo done which showed mild (1+) tricuspid valve insufficiency. She consented and was taken to the operating room on 01/01/[address] Rose. Postoperative course was uncomplicated and she was discharged to SNF on POD#10. PHYSICIAN SIGNATURE: The following attachments cannot be sent through Care Everywhere.Heart Healthy Diet (Kosovan)documented in this encounter [facility] 01-09-2023 Note Formatting of this n ote might be different from the original. Referral placed to [facility] via CareSpeed Dating by Chantilly Lace per [facility] request. Referral placed to [facility] via fax # [phone] to Shauna in Admissions Await review and response regarding ability to accept. TCC notified. [facility] 01-08-2023 Note Formatting of this n ote might be different from the original. Referral placed to [facility] via Careport per TCC request. Await review and response regarding ability to accept. TCC notified. [facility] 01-08-2023 Note Formatting of this n ote might be different from the original. Spoke with patient at bedside, niece Amie over the phone to discuss therapy recommendations. Agreeable to SNF, [facility] and [address] [place] [address] Healthy. [facility] 01-07-2023 Note Formatting of this n ote is different from the original. Images from the original note were not included. Care Management Progress Note Patient remains on HLU s/p CABG x 3 POD # 6. PT continuing to recommend IPR vs SNF. [facility] unable to accept patient, [facility], patient and niece declining SNF, discharge plan is home with [facility]. TCC to follow for updated therapy recs vs continued discussion regarding placement. Discharge Milestones and Delays Expected Date/Time: 01/10/[address] discharge order Complete med reconciliation Case mgmt discharge readiness Clinical Stability Diagnsotic Workup Expected Discharge History Expected Date/Time Set By Reviewed At 01/10/2023 Delores Mullins RN 01/07/2023 9:47 AM 01/07/2023 Delores Mullins RN 01/06/2023 8:10 AM PT/OT requested 01/06/2023 Delores Mullins RN 01/02/2023 2:07 PM 01/06/2023 Shruthi Weir, ICE SELLER - TRANSPORT MANAGER 01/01/2023 11:16 AM 01/06/2023 Uzair Rose MD 01/01/2023 5:45 AM Length of Stay (Days): 6 GMLOS: 5.9 [facility] 01-06-2023 Note Received referral an d reviewed chart. Phase II Cardiac Rehab Referral discussed with Lacy Alvarado. Patient prefers cardiac rehab at [facility]. Given information on cardiac rehab at preferred location. [facility] 01-06-2023 Note Formatting of this n ote might be different from the original. [facility] unable to accept patient, too functional. Updated patient at bedside and alyssa Holloway (HCPOA) over the phone. Declined SNF at this time, would like to plan discharge home with HHC including PT/OT/SN/SUPERVISOR COLD ROLLING if possible. Will updated PEDROZA PACC, CTS MASH TUB COOKER aware. [facility] 01-06-2023 Consult note Associated Order (s): IP CONSULT TO CARDIAC REHAB Received referral and reviewed chart. Phase II Cardiac Rehab Referral discussed with Layc Alvarado. Patient prefers cardiac rehab at [facility]. Given information on cardiac rehab at preferred location. [facility] 01-06-2023 Consult note Associated Order (s): IP CONSULT TO CARDIAC REHAB Received referral and reviewed chart. Phase II Cardiac Rehab Referral discussed with Lacy Alvarado. Patient prefers cardiac rehab at [facility]. Given information on cardiac rehab at preferred location. Associated Order(s): IP CONSULT TO DIETITIAN Nutrition Assessment Type and Reason for Visit: Initial, Consult, Patient Education (s/o open heart surgery) Nutrition Recommendations/Plan: Continue 5 carb choices (75 g/meal) diet as ordered. Monitor p.o. intake for indication for liberalized diet Per MNT protocol, will order Ensure HP BID to promote protein/p.o. intake for optimal postop healing (160 kcal, 16 g protein, 8 oz each) Provided heart healthy diet handout at bedside with [facility] RD phone number. 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 Pt underwent CABG x 4 01/01. Extubated with diet ordered. Pt is sleeping in chair at time of RD visit-did not disturb. Provided heart healthy diet handout with [facility] RD phone number for reference at bedside. Estimated Daily Nutrient Needs: Energy Requirements Based On: Kcal/kg Weight Used for Energy Requirements: Arnold (25-30 kcal/kg) Weight for Energy Calculation (kg): 50 kg Total Energy Requirements (kcals/day): 3276-5956 Weight Used for Protein Requirements: Arnold (1.2-1.5 g/kg) Weight in Kg Used for Protein Requirements: 50 kg Estimated Total Protein (g/day): 60-75 Estimated Daily Total Fluid (ml/day): per MD Nutrition Related Findings: Nutrition History: Unable to assess. GI symptoms: Unable to assess at this time. Magdy Scale Score: 16 .Wound Type: Multiple, Surgical Incision Net IO Since Admission: 2,100.8 mL [01/02/23 1231] Edema: RUE Edema: None, LUE Edema: None, , LLE Edema: Mild pitting, slight indentation Bowel Sounds (All Quadrants): Hypoactive Abdomen Inspection: Rounded Labs and meds reviewed: acetaminophen, 1,000 mg, Oral, q8h aspirin, 81 mg, Oral, Daily atorvastatin, 80 mg, Oral, Daily ceFAZolin, 2,000 mg, IntraVENous, q8h chlorhexidine, 15 mL, Mouth/Throat, BID divalproex, 1,250 mg, Oral, Nightly divalproex, 500 mg, Oral, q AM DULoxetine, 30 mg, Oral, Daily insulin lispro, 0-6 Units, SubCUTAneous, TID WC Lidocaine, 1 patch, Topical, Daily metoprolol tartrate, 12.5 mg, Oral, BID mupirocin, , Nasal, BID pantoprazole, 40 mg, IntraVENous, Daily Phenylephrine HCl (Pressors), , , polyethylene glycol (PEG) 3350, 17 g, Oral, Daily senna-docusate sodium, 2 tablet, Oral, Nightly simethicone, 80 mg, Oral, BID nitroprusside, 0.1-3 mcg/kg/min, Last Rate: Stopped (01/02/23 07) BMP: Recent Labs 01/01/23 1010 01/02/23 0002 01/02/23 0921 NA 140 140 140 K 3.6 4.5 4.5 CL 110* 107 107 CO2 20* 21* 23 BUN 21* 19* 20* CREATININE 0.77 0.86 0.99 GLUCOSE 124* 134* 104* CALCIUM 9.0 8.3* 8.7 MG 3.4* 2.3 -- PHOS 3.7 -- -- Recent Labs 01/02/23 0258 01/02/23 0409 01/02/23 0509 01/02/23 0602 01/02/23 0705 01/02/23 0927 POCGLU 136* 145* 120* 132* 132* 121* Lab Results Component Value Date HGBA1C 6.7 (H) 12/29/2022 Current Nutrition Therapies: Adult diet Regular; 5 carb choices (75 gm/meal) Current Oral Intake Average Meal Intake: Unable to assess Average Supplements Intake: None Ordered Anthropometric Measures: Height: 157.5 cm (5' 2 ) Current Body Weight: 78.8 kg (173 lb 11.6 oz) [facility] Admission Body Weight: 78 kg (172 lb) (no method) Arnold Body Weight (lbs) (Calculated): 110 lbs Arnold Body Weight (Kg) (Calculated): 50 kg % Arnold Body Weight (Calculated): 157.9 % BMI (kg/m2) (Calculated): 31.8 BMI Categories: Obese Class 1 (BMI 30.0-34.9) Wt Readings from Last 10 Encounters: 01/02/23 78.8 kg (173 lb 11.6 oz) 12/29/22 78 kg (172 lb) 12/23/22 77.3 kg (170 lb 6.4 oz) Nutrition Diagnosis: Increased nutrient needs related to increase demand for energy/nutrients as evidenced by wounds (surgical) Nutrition Interventions: Food and/or Nutrient Delivery: Continue Current Diet, Start Oral Nutrition Supplement Nutrition Education/Counseling: Education needed, Education initiated Coordination of Nutrition Care: Continue to monitor while inpatient Goals: Goals: PO intake 75% or greater, prior to discharge Nutrition Monitoring and Evaluation: Behavioral-Environmental Outcomes: Knowledge or Skill Food/Nutrient Intake Outcomes: Food and Nutrient Intake, Supplement Intake Physical Signs/Symptoms Outcomes: Biochemical Data, GI Status, Fluid Status or Edema, Nutrition Focused Physical Findings, Skin, Weight Discharge Planning: Too soon to determine Talita Haque RD, LD Contact: [phone] or via [employer] chat Associated Order(s): IP CONSULT TO ENDOCRINOLOGY Department of Internal Medicine Division of Endocrinology, Diabetes, & Metabolism Endocrinology Note Patient Name: Lacy Alvarado : 1950 AGE: 72 y.o. 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 Cabgx4 Noted hx dm2 in chart Out of OR Bgl below Insulin gtt 2/hr No pressors currently Intubated sedated Will clarify home meds when extubated CT in place Spoke to CTS and nursing in room Type of DM: 2 Onset of DM: unclear Home DM Medication Regimen: januvia 100 mg po daily DM control (last A1c/glucose data): Lab Results Component Value Date HGBA1C 6.7 (H) 12/29/2022 Glucose Date/Time Value Ref Range Status 01/01/2023 11:17 AM 101 (H) 70 - 100 mg/dL Final 01/01/2023 06:04 AM 125 (H) 70 - 100 mg/dL Final Review of Systems ROS negative except for those mentioned in HPI. OBJECTIVE: Vitals: 01/01/23 0537 01/01/23 0832 01/01/23 1118 01/01/23 1125 BP: (!) 162/90 (!) 94/42 BP Location: Left arm Patient Position: Lying Pulse: 96 94 97 Resp: 16 15 21 Temp: 36.4 C (97.6 F) (!) 35.6 C (96 F) TempSrc: Temporal Temporal SpO2: 100% 98% Weight: 78 kg (172 lb) 78 kg (172 lb) Height: 1.575 m (5' 2 ) 1.575 m (5' 2 ) Physical Exam Vitals and nursing note reviewed. Constitutional: General: She is not in acute distress. Appearance: She is ill-appearing. She is not toxic-appearing. Interventions: She is sedated and intubated. HENT: Head: Normocephalic and atraumatic. Nose: Nose normal. Mouth/Throat: Mouth: Mucous membranes are moist. Cardiovascular: Rate and Rhythm: Normal rate. Pulses: Normal pulses. Pulmonary: Effort: Pulmonary effort is normal. She is intubated. Abdominal: Palpations: Abdomen is soft. Musculoskeletal: Cervical back: Normal range of motion. Skin: General: Skin is warm and dry. 24 hour intake/output: Intake/Output Summary (Last 24 hours) at 01/01/2023 1140 Last data filed at 01/01/2023 1130 Gross per 24 hour Intake 1529 ml Output 620 ml Net 909 ml Diet: NPO diet Medications (as per EMR): HomeMeds: Current Outpatient Medications Medication Instructions aspirin 81 mg, Oral, Daily atorvastatin (LIPITOR) 80 mg, Oral, Daily calcium citrate (CALCITRATE) 950 mg, Oral, Daily carvedilol (Coreg) 12.5 MG tablet Oral, 2 times daily with meals clopidogrel (PLAVIX) 75 mg, Oral, Daily divalproex (DEPAKOTE) 1,000 mg, Oral, 2 times daily, 1,000 mg in am and 1,200 mg in evening DULoxetine (CYMBALTA) 30 mg, Oral, Daily, Do not crush or chew. hydroxychloroquine (PLAQUENIL) 200 mg, Oral, 2 times daily isosorbide mononitrate ER (IMDUR) 60 mg, Oral, Daily, Do not crush or chew. losartan (COZAAR) 50 mg, Oral, 2 times daily Multiple Vitamin (multivitamin) capsule 1 capsule, Oral, Daily mupirocin (Bactroban) 2 % ointment Apply liberal amount per nostril the night before surgery and then again the morning of surgery pantoprazole (PROTONIX) 40 mg, Oral, Daily before breakfast, Do not crush, chew, or split. polyethylene glycol (PEG) 3350 (MIRALAX) 17 g, Oral, Daily SITagliptin (JANUVIA) 100 mg, Oral, Daily traMADol (ULTRAM) 50 mg, Oral Scheduled Meds:acetaminophen, 1,000 mg, Oral, q8h albumin human, 25 g, IntraVENous, Once ceFAZolin, 2,000 mg, IntraVENous, q8h chlorhexidine, 15 mL, Mouth/Throat, BID lactated ringers, 500 mL, IntraVENous, Once Lidocaine, 1 patch, Topical, Daily mupirocin, , Nasal, BID [START ON 01/02/2023] pantoprazole, 40 mg, IntraVENous, Daily polyethylene glycol (PEG) 3350, 17 g, Oral, Daily senna-docusate sodium, 2 tablet, Oral, Nightly sugammadex, 4 mg/kg, IntraVENous, Once Continuous Infusions:insulin regular, 1-50 Units/hr, Last Rate: 2 Units/hr (01/01/23 1130) lactated ringers, 250 mL nitroprusside, 0.1-3 mcg/kg/min norepinephrine, 0.01-3.3 mcg/kg/min PRN Meds:PRN medications: albumin human, calcium gluconate, dextrose, dextrose, glucagon (rDNA), glucose, HYDROmorphone, ipratropium-albuterol, lactated ringers, magnesium hydroxide, magnesium sulfate OR magnesium sulfate, nitroprusside, norepinephrine, ondansetron ODT OR ondansetron, oxyCODONE OR oxyCODONE, potassium chloride OR potassium chloride 20 mEq in sodium chloride 0.9 % 250 mL IVPB OR potassium chloride 40 mEq in sodium chloride 0.9 % 500 mL IVPB, [START ON 01/02/2023] potassium chloride CR Diagnostic Workup: I reviewed pertinent Laboratory results, Radiographic results, and Other Clinical Notes at the time of today's encounter. Labs: No components found for: LABA1C No components found for: EAG Lab Results Component Value Date NA 140 01/01/2023 K 3.6 01/01/2023 CL 110 (H) 01/01/2023 CO2 20 (L) 01/01/2023 BUN 21 (H) 01/01/2023 CREATININE 0.77 01/01/2023 GLUCOSE 124 (H) 01/01/2023 CALCIUM 9.0 01/01/2023 No results found for: CHLPL, CHOL No results found for: TRIG No results found for: HDL No results found for: LDLCALC No results found for: VLDL No results found for: CHOLHDLRATIO No results found for: [id number] No results found for: TSH, A3ZSDPY, A2WGDNQ, THYROIDAB Radiology reportsas per the Radiologist Radiology: ECG 12 lead Result Date: 01/01/2023 Sinus rhythm History/Other: Past Medical History: Past Medical History: Diagnosis Date CHF (congestive heart failure) ([facility]/HCC) (HCC) Diabetes mellitus (HCC) GERD (gastroesophageal reflux disease) Hyperlipidemia Hypertension RA (rheumatoid arthritis) (HCC) Seizure (HCC) last seizure 5 months ago nathaniel murray 08/24 Seizures ([facility]) Sleep apnea Past Surgical History: Past Surgical History: Procedure Laterality Date CARDIAC CATHETERIZATION COLONOSCOPY CORONARY STENT PLACEMENT 03/22/2018 HYSTERECTOMY Allergy(ies): Allergies Allergen Reactions Prednisone Hives and Nausea And Vomiting Family History: No family history on file. Social History: Social History Tobacco Use Smoking status: Never Smokeless tobacco: Never Vaping Use Vaping Use: Never used Substance Use Topics Alcohol use: Yes Comment: once a year Drug use: Never Portions of the information within this encounter were entered using an electronic dictation system. Best attempts were made to edit/proofread the information prior to note completion. Despite the review of information, some errors may remain. If there are questions related to the information contained within the note please contact the signing physician directly. I spent 30 minutes with the pt which involved coordination of care, medical evaluation, review of records, and/or counseling of the pt regarding his/her condition/disease state/prognosis on the date of this note. Associated attestation - Angela Smith MD - 01/01/2023 11:08 PM EDT I performed a history and physical examination of the patient. I have reviewed the patient's chart including pertinent history, medications, labs, radiology, and other reports. I reviewed the resident/SONYA's note, agree with the documented findings and plan of care (with modifications noted if any), and discussed the management plan. I have performed a substantive portion of the the medical decision making. Pt is s/p CABG 01/01/23. Was still intubated; sedation wearing off. She has T2DM, on Januvia at home. BG stable. Pt on insulin drip post op, at 0-4 units/hr. No pressors. Niece at bedside. Lab Results Component Value Date HGBA1C 6.7 (H) 12/29/2022 Lab Results Component Value Date GLUCOSE 124 (H) 01/01/2023 CALCIUM 9.0 01/01/2023 NA 140 01/01/2023 K 3.6 01/01/2023 CO2 20 (L) 01/01/2023 CL 110 (H) 01/01/2023 BUN 21 (H) 01/01/2023 CREATININE 0.77 01/01/2023 BP 125/50 Pulse 106 Temp 37.2 C (99 F) Resp (!) 28 Ht 5' 2 (1.575 m) Wt 172 lb (78 kg) SpO2 100% BMI 31.46 kg/m Obese, intubated, arousable, not in distress, RRR, chest incision intact, good pulses, clear breath sounds, no rales, +chest tubes, abdomen soft, nno edema. Dx: Type 2 DM, with cardiac complications. CAD s/p CABG. Plan: - will continue insulin infusion per protocol then transition to subcutaneous insulin likely tomorrow - continue blood glucose monitoring - discussed postop hyperglycemia management and goals of therapy with family - patient may be able to resume Januvia on discharge for DM; can also consider other agents such as SGLT-2i or GLP-1a. - will follow Total time 25 minutes which include review of records, counseling, management, and coordination of care as documented in note. Images from the original note were not included. [facility]: Critical Care Consultation Note Date: 01/01/23 PATIENT NAME: Lacy Alvarado : 1950 (72 y.o.) Reason for Consult: Critical Care & Vent Management HPI: Lacy Alvarado is a 72 y.o. female was referred to us by Dr. Bhanu Milian. 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 Patient also had an echo done which showed mild (1+) tricuspid valve insufficiency. Dr Rose office note 12/23/2022. She presents for CABG today from the OP setting Surgery: 01/01/23: [place] - CABG x 4 (Official Report Pending) Interval History: 01/01/23: POD #0: Patient arrived to the unit, intubated and sedated. Surgical hand off completed below. Review of Systems Reason unable to perform ROS: Intubated and sedated. Allergies: Prednisone Past Medical History: has a past medical history of CHF (congestive heart failure) (CMS/HCC) (HCC), Diabetes mellitus (HCC), GERD (gastroesophageal reflux disease), Hyperlipidemia, Hypertension, RA (rheumatoid arthritis) (HCC), Seizure (HCC), Seizures (HCC), and Sleep apnea. Past Surgical History: has a past surgical history that includes Cardiac catheterization; Coronary stent placement (03/22/2018); Hysterectomy; and Colonoscopy. Social History: reports that she has never smoked. She has never used smokeless tobacco. She reports current alcohol use. She reports that she does not use drugs. Family History: family history is not on file. Medications: Prior to Admission medications Medication Sig Start Date End Date Taking? Authorizing Provider aspirin 81 MG EC tablet Take 81 mg by mouth daily. Yes Historical Provider, atorvastatin (Lipitor) 80 MG tablet Take 80 mg by mouth daily. Yes Historical Provider, calcium citrate (Calcitrate) 950 (200 Ca) MG tablet Take 950 mg by mouth daily. Yes Historical Provider, carvedilol (Coreg) 12.5 MG tablet Take by mouth 2 times daily (with meals). Yes Historical Provider, clopidogrel (Plavix) 75 MG tablet Take 75 mg by mouth daily. Yes Historical Provider, divalproex (Depakote) 500 MG EC tablet Take 1,000 mg by mouth 2 times daily. 1,000 mg in am and 1,200 mg in evening Yes Historical Provider, DULoxetine (Cymbalta) [address] capsule Take 30 mg by mouth daily. Do not crush or chew. Yes Historical Provider, hydroxychloroquine (Plaquenil) 200 MG tablet Take 200 mg by mouth 2 times daily. Yes Historical Provider, isosorbide mononitrate ER (Imdur) 60 MG 24 hr tablet Take 60 mg by mouth daily. Do not crush or chew. Yes Historical Provider, losartan (Cozaar) 50 MG tablet Take 50 mg by mouth 2 times daily. Yes Historical Provider, Multiple Vitamin (multivitamin) capsule Take 1 capsule by mouth daily. Yes Historical Provider, pantoprazole (ProtoNix) 40 MG EC tablet Take 40 mg by mouth every morning (before breakfast). Do not crush, chew, or split. Yes Historical Provider, polyethylene glycol, PEG, 3350 (Miralax) 17 g packet Take 17 g by mouth daily. Yes Historical Provider, SITagliptin (Januvia) 100 MG tablet Take 100 mg by mouth daily. Yes Historical Provider, mupirocin (Bactroban) 2 % ointment Apply liberal amount per nostril the night before surgery and then again the morning of surgery Patient not taking: Reported on 01/01/2023 12/24/22 Malik Tabares APRN - SERENA traMADol (Ultram) 50 MG tablet Take 50 mg by mouth. 11/28/21 Historical Provider, Surgery Hand Off: Arrival Time in HLU: 1115 Complications/Pertinent Events: Last Paralytic: Medications given in route: Gtts OR report Propofol: 50 Insulin: 1 Amicar: 29 Current gtts upon arrival Propofol:50 Insulin: 1 Amicar: 29 Devices: Epicardial wires: yes [] no [x] IABP: yes [] no [x] LVAD: yes [] no [x] Speed: Equipment: Back up controller yes [] no [x] Blood Transfusions Intra Op: yes [] no [x] CellSaver: 600 Vital Signs including Cardiac Numbers (if indicated) at Conclusion of Hand-off OR HLU CVP 4 3 Additional Interventions/Misc during Handoff None Objective: BP (!) 162/90 Pulse 96 Temp 36.4 C (97.6 F) (Temporal) Resp 16 Ht 1.575 m (5' 2 ) Wt 78 kg (172 lb) SpO2 100% BMI 31.46 kg/m Intake/Output Summary (Last 24 hours) at 01/01/2023 0858 Last data filed at 01/01/2023 0713 Gross per 24 hour Intake 11 ml Output -- Net 11 ml Physical Exam Cardiovascular: Rate and Rhythm: Normal rate and regular rhythm. Heart sounds: Normal heart sounds. Pulmonary: Effort: Pulmonary effort is normal. Breath sounds: Normal breath sounds. Abdominal: General: Bowel sounds are normal. Palpations: Abdomen is soft. There is no mass. Tenderness: There is no abdominal tenderness. Hernia: No hernia is present. Skin: General: Skin is warm and dry. Neurological: Mental Status: She is alert and oriented to person, place, and time. Diagnostics: Reviewed in EMR Labs: Reviewed in EMR BMP: Recent Labs 12/29/22 1533 NA 141 K 4.0 CL 105 CO2 28 BUN 19* CREATININE 0.79 CALCIUM 9.1 CBC: Recent Labs 12/29/22 1551 WBC 5.0 HGB 12.5 HCT 36.4 PLT 190 MCV 96.5 RDW 14.6* INR: Recent Labs 12/29/22 1533 INR 1.0 Assessment: Post operative Pulm Management: Normal Post-operative Course Post-operative Atrial Fibrillation: []Yes [x] No Acute blood loss anemia/consumptive none Plan: Reverse Sedation Rapid track to extubation Dilaudid PRN pain DC morphine Start nipride for HTN CXR to verify lines EKG ECHO EF=60% - Sugamadex - Hemodynamic goals: CI >2.0, SBP 90-130 mmHg, MAP 60-75 -PRN Hypotension CI >2.0 euvolemic with low SVR- Levophed gtt CI <2.0 euvolemic - Epinephrine gtt - Chest tubes: no air leak or fluctuation noted, suction -20cm - Cefazolin - surgical prophy for 5 doses total - Wean to Extubation: Arrival Time in unit: 1115 - Vent: ACVC+, TV 6ml/kg/min, rate 12, fio2 100% PEEP 8 VAP protocol: HOB >30 degrees; peridex BID - Insulin gtt; per endo/protocol - GI prophy: Protonix IV daily Patient treatment plan and plan of care discuss with Dr. GONSALEZ Associated attestation - Carlos Chavarria DO - 01/01/2023 2:48 PM EDT I have personally performed a [id number] diagnostic evaluation on this patient on date of service 01/01/23 . History, labs, imaging studies, and electronic medical record have been reviewed by me. This note documented by the []warehouse operations associate [x]SONYA reflects my history, exam, and medical decision making. I have reviewed and agree with the care plan. Changes were made in the orders as necessary. ROS documentation was reviewed and negative unless otherwise stated in HPI. Patient post op CABG x3, uncomplicated and not requiring vasoactives. Vent settings are minimal, plan for early extubation and post operative care. Hgb 6.9 s/p transfusion of PRBCs Insulin infusion Pain control No air leak in CTs No Pacer wires documented in this encounter [facility] 01-06-2023 Note Care Management Prog ress Note Patient remains on HLU s/p CABG x 3 POD # 5. VSS, on RA, in NSR on tele, BB increased, holding diuretics, insulin per endocrine, and PT recommending IPR (01/04). Patient and family agreeable to [facility], left message on therapy line requesting see today for both PT/OT to start precert. Discharge Milestones and Delays Expected Date/Time: 01/07/[address] discharge order Complete med reconciliation Case mgmt discharge readiness Clinical Stability Diagnsotic Workup Expected Discharge History Expected Date/Time Set By Reviewed At 01/07/2023 Delores Mullins RN 01/06/2023 8:10 AM PT/OT requested 01/06/2023 Delores Mullins RN 01/02/2023 2:07 PM 01/06/2023 Shruthi Weir, ICE SELLER - TRANSPORT MANAGER 01/01/2023 11:16 AM 01/06/2023 Uzair Rose MD 01/01/2023 5:45 AM Length of Stay (Days): 5 GMLOS: 5.9 [facility] 01-06-2023 Note Formatting of this n ote is different from the original. Images from the original note were not included. Care Management Progress Note Patient remains on HLU s/p CABG x 3 POD # 5. VSS, on RA, in NSR on tele, BB increased, holding diuretics, insulin per endocrine, and PT recommending IPR (01/04). Patient and family agreeable to [facility], left message on therapy line requesting see today for both PT/OT to start precert. Discharge Milestones and Delays Expected Date/Time: 01/07/[address] discharge order Complete med reconciliation Case mgmt discharge readiness Clinical Stability Diagnsotic Workup Expected Discharge History Expected Date/Time Set By Reviewed At 01/07/2023 Delores Mullins RN 01/06/2023 8:10 AM PT/OT requested 01/06/2023 Delores Mullins RN 01/02/2023 2:07 PM 01/06/2023 Shruthi Weir ICE SELLER - TRANSPORT MANAGER 01/01/2023 11:16 AM 01/06/2023 Uzair Rose MD 01/01/2023 5:45 AM Length of Stay (Days): 5 GMLOS: 5.9 [facility] 01-04-2023 Note Cardiothoracic Surge ry/CCM Progress Note PATIENT NAME: Lacy Alvarado DATE: 01/04/23 HPI: Lacy Alvarado is a 72 y.o. female was referred to us by Dr. Bhanu Milian. 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 Patient also had an echo done which showed mild (1+) tricuspid valve insufficiency. Dr Rose office note 12/23/2022. She presents for CABG today from the OP setting Surgery/Procedure: 01/01/23: Dr. Rose - CABG x 4 (Official Report Pending) Interval History: 01/04/23, POD# 03. Afebrile, NSR on tele, BP stable, on 2L NC. Sitting up in chair this AM, feeling okay. +BM yesterday. Ambulating with nursing. Poor appetite but attempting to eat. Review of Systems Constitutional: Positive for fatigue. Negative for chills, diaphoresis and fever. Respiratory: Negative for cough, shortness of breath and wheezing. Cardiovascular: Positive for chest pain. Negative for palpitations and leg swelling. Gastrointestinal: Negative for abdominal distention, abdominal pain, nausea and vomiting. Neurological: Negative for dizziness, syncope and light-headedness. Objective: CT output cc/24hrs: 190 Vitals: BP: 119/66, MAP (mmHg): 79, BP Method: Automatic Heart Rate: 78 Resp: 16 Temp: 36.4 ?C (97.5 ?F), Temp Source: Temporal BMI (Calculated): 33.5 BMP: Recent Labs 01/01/23 1010 01/02/23 0002 01/02/23 0921 01/03/23 0014 01/04/23 0309 NA 140 140 140 136 135 K 3.6 4.5 4.5 4.4 3.9 CL 110* 107 107 103 100 CO2 20* 21* 23 25 26 BUN 21* 19* 20* 23* 34* CREATININE 0.77 0.86 0.99 0.80 1.11* CALCIUM 9.0 8.3* 8.7 8.5 8.5 MG 3.4* 2.3 -- 2.3 2.6* PHOS 3.7 -- -- -- -- CBC: Recent Labs 01/02/23 0002 01/03/23 0014 01/04/23 0309 WBC 6.1 8.6 7.9 HGB 8.7* 10.1* 9.9* HCT 25.7* 29.5* 29.0* PLT 80* 82* 87* MCV 92.4 93.3 93.4 RDW 16.8* 16.7* 16.0* INR: Recent Labs 01/01/23 1010 01/02/23 0002 01/03/23 0014 INR 1.3* 1.1 1.1 Physical Exam Vitals reviewed. Constitutional: General: She is not in acute distress. Appearance: She is not ill-appearing or diaphoretic. Neck: Comments: Central line. Cardiovascular: Rate and Rhythm: Normal rate and regular rhythm. Pulses: Normal pulses. Heart sounds: No murmur heard. Pulmonary: Effort: Pulmonary effort is normal. Breath sounds: No wheezing, rhonchi or rales. Comments: Shallow breaths, diminished in bases bilaterally. Abdominal: General: There is no distension. Palpations: Abdomen is soft. Tenderness: There is no abdominal tenderness. Comments: Chest tubes in place. Musculoskeletal: General: No swelling. Skin: General: Skin is warm and dry. Comments: MSI well approximated, no redness, warmth or drainage noted. Neurological: General: No focal deficit present. Mental Status: She is alert and oriented to person, place, and time. Psychiatric: Mood and Affect: Mood normal. Behavior: Behavior normal. Thought Content: Thought content normal. Judgment: Judgment normal. Assessment: CAD s/p CABG (previous stent) CHF T2DM HLD Epilepsy HTN RA LINA Post operative Pulm Management: Normal Post-operative Course Post-operative Atrial Fibrillation: []Yes [x] No Acute blood loss anemia/consumptive thrombocytopenia Plan: Patient Status: Telemetry Continue current medications. Aspirin, statin and BB. -Will titrate up BB as BP can tolerate. Lasix 40mg PO. Pull chest tubes. Do not re-order toradol d/t bump in creat. Home Depakote and Cymbalta. Heparin DVT prophy, platelets trending up slowly. Encourage PO intake. Daily labs with PRN electrolyte replacement protocols. PT/OT: Continue to assess. Out of bed for meals, progressive mobility. Pulmonary hygiene: IS and Acapella. Wean O2 as able, goal SpO2>92%. GI prophy: PO protonix DVT prophy:TEDs and SCDs Disposition: TBD. Central Line: [x]Yes [] No Arterial Line: []Yes [x] No Araya: []Yes [x] No Restraints: []Yes [x] No Patient discussed and plan of day developed from multidisciplinary rounds between Cardiothoracic Surgery (Cardiothoracic Surgeon, SONYA) and Critical Care Attending Cardiac Core Medications: ASA, Statin, and BB EF: Nomal (SIS 01/01/23) Blood Conservation: Transfused post-op. Plug Sorter: [facility] 01-03-2023 Note Cardiothoracic Surge ry/[facility] Progress Note PATIENT NAME: Lacy Alvarado DATE: 01/03/23 HPI: Lacy Alvarado is a 72 y.o. female was referred to us by Dr. Bhanu Milian. 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 Patient also had an echo done which showed mild (1+) tricuspid valve insufficiency. Dr Rose office note 12/23/2022. She presents for CABG today from the OP setting Surgery/Procedure: 01/01/23: Dr. Rose - CABG x 4 (Official Report Pending) Interval History: 01/03/23, POD# 02. Afebrile, NSR on tele, BP stable, on 2L NC. Lying in bed, awake and alert. Pain present, patient states not feeling as well as yesterday. Poor appetite. No acute events overnight. Review of Systems Constitutional: Positive for fatigue. Negative for chills, diaphoresis and fever. Respiratory: Negative for cough, shortness of breath and wheezing. Cardiovascular: Positive for chest pain. Negative for palpitations and leg swelling. Gastrointestinal: Negative for abdominal distention, abdominal pain, nausea and vomiting. Neurological: Negative for dizziness, syncope and light-headedness. Objective: CT output cc/24hrs: 265 UO cc/24hrs: 435 Vitals: BP: 100/60, MAP (mmHg): 73, BP Method: Automatic Heart Rate: 81 Resp: 15 Temp: 36.6 ?C (97.8 ?F), Temp Source: Temporal BMI (Calculated): 31.77 BMP: Recent Labs 01/01/23 1010 01/02/23 0002 01/02/23 0921 01/03/23 0014 NA 140 140 140 136 K 3.6 4.5 4.5 4.4 CL 110* 107 107 103 CO2 20* 21* 23 25 BUN 21* 19* 20* 23* CREATININE 0.77 0.86 0.99 0.80 CALCIUM 9.0 8.3* 8.7 8.5 MG 3.4* 2.3 -- 2.3 PHOS 3.7 -- -- -- CBC: Recent Labs 01/01/23 1230 01/01/23 1412 01/02/23 0002 01/03/23 0014 WBC 9.0 -- 6.1 8.6 HGB 6.9* 9.1* 8.7* 10.1* HCT 20.0* 26.8* 25.7* 29.5* PLT 79* -- 80* 82* MCV 96.7 -- 92.4 93.3 RDW 14.2 -- 16.8* 16.7* INR: Recent Labs 01/01/23 1010 01/02/23 0002 01/03/23 0014 INR 1.3* 1.1 1.1 Physical Exam Vitals reviewed. Constitutional: General: She is not in acute distress. Appearance: She is not ill-appearing or diaphoretic. Neck: Comments: Central line. Cardiovascular: Rate and Rhythm: Normal rate and regular rhythm. Pulses: Normal pulses. Heart sounds: No murmur heard. Pulmonary: Effort: Pulmonary effort is normal. Breath sounds: No wheezing, rhonchi or rales. Comments: Shallow breaths, diminished in bases bilaterally. Abdominal: General: There is no distension. Palpations: Abdomen is soft. Tenderness: There is no abdominal tenderness. Comments: Chest tubes in place. Genitourinary: Comments: Araya. Skin: General: Skin is warm and dry. Comments: MSI well approximated, no redness, warmth or drainage noted. Neurological: General: No focal deficit present. Mental Status: She is alert and oriented to person, place, and time. Psychiatric: Mood and Affect: Mood normal. Behavior: Behavior normal. Thought Content: Thought content normal. Judgment: Judgment normal. Assessment: CAD s/p CABG (previous stent) CHF T2DM HLD Epilepsy HTN RA LINA Post operative Pulm Management: Normal Post-operative Course Post-operative Atrial Fibrillation: []Yes [x] No Acute blood loss anemia/consumptive thrombocytopenia Plan: Patient Status: Telemetry Continue current medications. Aspirin, statin and BB. -Will titrate up BB as BP can tolerate. Lasix 40mg IV BID. Add toradol for pain x 24 hours. Likely remove chest tubes after getting to chair. Add MOM to bowel regimen. Home Depakote and Cymbalta. Hold heparin DVT prophy d/t thrombocytopenia. Encourage PO intake. Daily labs with PRN electrolyte replacement protocols. PT/OT: Continue to assess. Out of bed for meals, progressive mobility. Pulmonary hygiene: IS and Acapella GI prophy: PO protonix DVT prophy:TEDs and SCDs Disposition: TBD. Central Line: [x]Yes [] No Arterial Line: []Yes [x] No Araya: [x]Yes [] No Restraints: []Yes [x] No Patient discussed and plan of day developed from multidisciplinary rounds between Cardiothoracic Surgery (Cardiothoracic Surgeon, SONYA) and Critical Care Attending Cardiac Core Medications: ASA, Statin, and BB EF: Nomal (SIS 01/01/23) Blood Conservation: Transfused post-op. Plug Sorter: [facility] 09-02-2023 Plan of care note Problem: Knowledge Deficit Goal: Patient/family/caregiver demonstrates understanding of disease process, treatment plan, medications, and discharge instructions Outcome: Progressing Problem: Potential for Compromised Skin Integrity Goal: Skin Integrity is Maintained or Improved Outcome: Progressing Goal: Nutritional status is improving Outcome: Progressing Problem: Urinary Incontinence Goal: Perineal skin integrity is maintained or improved Outcome: Progressing Problem: Problem Interventions Goal: Assess Nutritional Intake Outcome: Progressing [facility] 01-02-2023 Note Formatting of this n ote might be different from the original. Route Inspector following case for Discharge Needs. T [facility] 01-02-2023 Note Nutrition Assessment Type and Reason for Visit: Initial, Consult, Patient Education (s/o open heart surgery) Nutrition Recommendations/Plan: Continue 5 carb choices (75 g/meal) diet as ordered. Monitor p.o. intake for indication for liberalized diet Per MNT protocol, will order Ensure HP BID to promote protein/p.o. intake for optimal postop healing (160 kcal, 16 g protein, 8 oz each) Provided heart healthy diet handout at bedside with [facility] RD phone number. 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 Pt underwent CABG x 4 01/01. Extubated with diet ordered. Pt is sleeping in chair at time of RD visit-did not disturb. Provided heart healthy diet handout with [facility] RD phone number for reference at bedside. Estimated Daily Nutrient Needs: Energy Requirements Based On: Kcal/kg Weight Used for Energy Requirements: Arnold (25-30 kcal/kg) Weight for Energy Calculation (kg): 50 kg Total Energy Requirements (kcals/day): 0366-9809 Weight Used for Protein Requirements: Arnold (1.2-1.5 g/kg) Weight in Kg Used for Protein Requirements: 50 kg Estimated Total Protein (g/day): 60-75 Estimated Daily Total Fluid (ml/day): per MD Nutrition Related Findings: Nutrition History: Unable to assess. GI symptoms: Unable to assess at this time. Magdy Scale Score: 16 .Wound Type: Multiple, Surgical Incision Net IO Since Admission: 2,100.8 mL [01/02/23 1231] Edema: RUE Edema: None, LUE Edema: None, , LLE Edema: Mild pitting, slight indentation Bowel Sounds (All Quadrants): Hypoactive Abdomen Inspection: Rounded Labs and meds reviewed: acetaminophen, 1,000 mg, Oral, q8h aspirin, 81 mg, Oral, Daily atorvastatin, 80 mg, Oral, Daily ceFAZolin, 2,000 mg, IntraVENous, q8h chlorhexidine, 15 mL, Mouth/Throat, BID divalproex, 1,250 mg, Oral, Nightly divalproex, 500 mg, Oral, q AM DULoxetine, 30 mg, Oral, Daily insulin lispro, 0-6 Units, SubCUTAneous, TID WC Lidocaine, 1 patch, Topical, Daily metoprolol tartrate, 12.5 mg, Oral, BID mupirocin, , Nasal, BID pantoprazole, 40 mg, IntraVENous, Daily Phenylephrine HCl (Pressors), , , polyethylene glycol (PEG) 3350, 17 g, Oral, Daily senna-docusate sodium, 2 tablet, Oral, Nightly simethicone, 80 mg, Oral, BID nitroprusside, 0.1-3 mcg/kg/min, Last Rate: Stopped (01/02/23 0715) BMP: Recent Labs 01/01/23 1010 01/02/23 0002 01/02/23 0921 NA 140 140 140 K 3.6 4.5 4.5 CL 110* 107 107 CO2 20* 21* 23 BUN 21* 19* 20* CREATININE 0.77 0.86 0.99 GLUCOSE 124* 134* 104* CALCIUM 9.0 8.3* 8.7 MG 3.4* 2.3 -- PHOS 3.7 -- -- Recent Labs 01/02/23 0258 01/02/23 0409 01/02/23 0509 01/02/23 0602 01/02/23 0705 01/02/23 0927 POCGLU 136* 145* 120* 132* 132* 121* Lab Results Component Value Date HGBA1C 6.7 (H) 12/29/2022 Current Nutrition Therapies: Adult diet Regular; 5 carb choices (75 gm/meal) Current Oral Intake Average Meal Intake: Unable to assess Average Supplements Intake: None Ordered Anthropometric Measures: Height: 157.5 cm (5' 2 ) Current Body Weight: 78.8 kg (173 lb 11.6 oz) (01/02 bedscale) Admission Body Weight: 78 kg (172 lb) (no method) Arnold Body Weight (lbs) (Calculated): 110 lbs Arnold Body Weight (Kg) (Calculated): 50 kg % Arnold Body Weight (Calculated): 157.9 % BMI (kg/m2) (Calculated): 31.8 BMI Categories: Obese Class 1 (BMI 30.0-34.9) Wt Readings from Last 10 Encounters: 01/02/23 78.8 kg (173 lb 11.6 oz) 12/29/22 78 kg (172 lb) 12/23/22 77.3 kg (170 lb 6.4 oz) Nutrition Diagnosis: Increased nutrient needs related to increase demand for energy/nutrients as evidenced by wounds (surgical) Nutrition Interventions: Food and/or Nutrient Delivery: Continue Current Diet, Start Oral Nutrition Supplement Nutrition Education/Counseling: Education needed, Education initiated Coordination of Nutrition Care: Continue to monitor while inpatient Goals: Goals: PO intake 75% or greater, prior to discharge Nutrition Monitoring and Evaluation: Behavioral-Environmental Outcomes: Knowledge or Skill Food/Nutrient Intake Outcomes: Food and Nutrient Intake, Supplement Intake Physical Signs/Symptoms Outcomes: Biochemical Data, GI Status, Fluid Status or Edema, Nutrition Focused Physical Findings, Skin, Weight Discharge Planning: Too soon to determine Talita Haque RD, LD Contact: *[phone] or via [employer] [facility] 01-02-2023 Note Formatting of this n ote might be different from the original. Care Managment Initial Assessment Date: 01/02/2023 Patient Name: Lacy Alvarado : 1950 Patient Information Source of Information: Patient Cognition/Language: WFL - Within Functional Limits Permission given to speak with patient dermatology sales representative/caregiver as indicated: Yes Confirmation of Payer with patient/family: Yes Payer Name: [employer] Medicare [place]: No Confirmation of Primary Care Physician: Confirmed PCP Name: Dr. Garcia Seen in last 2 years?: Yes Primary Caregiver: Self If assistance needed, confirmed caregiver ready, willing and able to care for patient at discharge: Confirmed with: Living Arrangements Current Residence: Apartment Number of Floors 1 Number of Entry Steps: (3 full flights (patient apt pn 3rd level)) Bed/Bath Levels: Facility: Facility Name: Plan to Return: Lives with: Extended family members Support Systems: Family members Activities of Daily Living Ambulation: Independent Bathing/Dressing: Independent Elimination/Continence/Toileting: Independent Feeding: Independent Who Assists with Activities of Daily Living: Instrumental Activities of Daily Living Prescription Coverage: Yes Pharmacy Used: [facility] Medication Management: Independent Transportation/Shopping: Assistance Provider Transportation/Shopping Assistance Provider Name: family Transportation Mode: Car Needs Assistance with Transportation at Discharge: No Meal Preparation: Independent Laundry/Cleaning: Independent Finances/Bill Paying: Independent Communication: Independent Types of Care Services/Equipment Utilized Care Services: Dialysis Type: Durable Medical Equipment: Patient's Goal/Discharge Plan Patient expects to be discharged to: home Discharge Planning Actions: Continue to follow Patient's Choice Rights and [employer] and Collaborative Relationships Disclosed as Indicated for Post-Acute Care: Interdisciplinary Team Engagement: PT/OT, Home Health Care Social Work Referral for: Additional Information: Patient admitted to HLU s/p CABG x POD # 1. Spoke with patient at bedside, introduced self and role. Patient from home with grandson, is independent, no longer drives, has PCP and prescription coverage, will have a ride home and will task PEDROZA to follow for home care needs. Delores Mullins RN [facility] 09-01-2023 Consult note Associated Order (s): IP CONSULT TO DIETITIAN Nutrition Assessment Type and Reason for Visit: Initial, Consult, Patient Education (s/o open heart surgery) Nutrition Recommendations/Plan: Continue 5 carb choices (75 g/meal) diet as ordered. Monitor p.o. intake for indication for liberalized diet Per MNT protocol, will order Ensure HP BID to promote protein/p.o. intake for optimal postop healing (160 kcal, 16 g protein, 8 oz each) Provided heart healthy diet handout at bedside with [facility] RD phone number. 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 Pt underwent CABG x 4 01/01. Extubated with diet ordered. Pt is sleeping in chair at time of RD visit-did not disturb. Provided heart healthy diet handout with [facility] RD phone number for reference at bedside. Estimated Daily Nutrient Needs: Energy Requirements Based On: Kcal/kg Weight Used for Energy Requirements: Arnold (25-30 kcal/kg) Weight for Energy Calculation (kg): 50 kg Total Energy Requirements (kcals/day): 6521-6514 Weight Used for Protein Requirements: Arnold (1.2-1.5 g/kg) Weight in Kg Used for Protein Requirements: 50 kg Estimated Total Protein (g/day): 60-75 Estimated Daily Total Fluid (ml/day): per MD Nutrition Related Findings: Nutrition History: Unable to assess. GI symptoms: Unable to assess at this time. Magdy Scale Score: 16 .Wound Type: Multiple, Surgical Incision Net IO Since Admission: 2,100.8 mL [01/02/23 1231] Edema: RUE Edema: None, LUE Edema: None, , LLE Edema: Mild pitting, slight indentation Bowel Sounds (All Quadrants): Hypoactive Abdomen Inspection: Rounded Labs and meds reviewed: acetaminophen, 1,000 mg, Oral, q8h aspirin, 81 mg, Oral, Daily atorvastatin, 80 mg, Oral, Daily ceFAZolin, 2,000 mg, IntraVENous, q8h chlorhexidine, 15 mL, Mouth/Throat, BID divalproex, 1,250 mg, Oral, Nightly divalproex, 500 mg, Oral, q AM DULoxetine, 30 mg, Oral, Daily insulin lispro, 0-6 Units, SubCUTAneous, TID WC Lidocaine, 1 patch, Topical, Daily metoprolol tartrate, 12.5 mg, Oral, BID mupirocin, , Nasal, BID pantoprazole, 40 mg, IntraVENous, Daily Phenylephrine HCl (Pressors), , , polyethylene glycol (PEG) 3350, 17 g, Oral, Daily senna-docusate sodium, 2 tablet, Oral, Nightly simethicone, 80 mg, Oral, BID nitroprusside, 0.1-3 mcg/kg/min, Last Rate: Stopped (01/02/23 0715) BMP: Recent Labs 01/01/23 1010 01/02/23 0002 01/02/23 0921 NA 140 140 140 K 3.6 4.5 4.5 CL 110* 107 107 CO2 20* 21* 23 BUN 21* 19* 20* CREATININE 0.77 0.86 0.99 GLUCOSE 124* 134* 104* CALCIUM 9.0 8.3* 8.7 MG 3.4* 2.3 -- PHOS 3.7 -- -- Recent Labs 01/02/23 0258 01/02/23 0409 01/02/23 0509 01/02/23 0602 01/02/23 0705 01/02/23 0927 POCGLU 136* 145* 120* 132* 132* 121* Lab Results Component Value Date HGBA1C 6.7 (H) 12/29/2022 Current Nutrition Therapies: Adult diet Regular; 5 carb choices (75 gm/meal) Current Oral Intake Average Meal Intake: Unable to assess Average Supplements Intake: None Ordered Anthropometric Measures: Height: 157.5 cm (5' 2 ) Current Body Weight: 78.8 kg (173 lb 11.6 oz) (01/02 [facility]) Admission Body Weight: 78 kg (172 lb) (no method) Arnold Body Weight (lbs) (Calculated): 110 lbs Arnold Body Weight (Kg) (Calculated): 50 kg % Arnold Body Weight (Calculated): 157.9 % BMI (kg/m2) (Calculated): 31.8 BMI Categories: Obese Class 1 (BMI 30.0-34.9) Wt Readings from Last 10 Encounters: 01/02/23 78.8 kg (173 lb 11.6 oz) 12/29/22 78 kg (172 lb) 12/23/22 77.3 kg (170 lb 6.4 oz) Nutrition Diagnosis: Increased nutrient needs related to increase demand for energy/nutrients as evidenced by wounds (surgical) Nutrition Interventions: Food and/or Nutrient Delivery: Continue Current Diet, Start Oral Nutrition Supplement Nutrition Education/Counseling: Education needed, Education initiated Coordination of Nutrition Care: Continue to monitor while inpatient Goals: Goals: PO intake 75% or greater, prior to discharge Nutrition Monitoring and Evaluation: Behavioral-Environmental Outcomes: Knowledge or Skill Food/Nutrient Intake Outcomes: Food and Nutrient Intake, Supplement Intake Physical Signs/Symptoms Outcomes: Biochemical Data, GI Status, Fluid Status or Edema, Nutrition Focused Physical Findings, Skin, Weight Discharge Planning: Too soon to determine Talita Haque RD, LD Contact: *[phone] or via [employer] [facility] 01-01-2023 Note Patient: Lacy tapia Procedure Summary Date: 01/01/23 Room / Location: [address] Operating Room Anesthesia Start: 0658 Anesthesia Stop: 1128 Procedures: CABG AND SIS (Chest) Echocardiography transesophageal real-time Diagnosis: Atherosclerotic heart disease of [place] coronary artery without angina pectoris (Atherosclerotic heart disease of [place] coronary artery without angina pectoris [I25.10]) Surgeons: Uzair Rose MD Responsible Provider: Cruzito Frost MD Anesthesia Type: general ASA Status: 4 Anesthesia Type: general Vitals Value Taken Time BP 94/42 01/01/23 1118 Temp 35.6 ?C (96 ?F) 01/01/23 1118 Pulse 95 01/01/23 1129 Resp 16 01/01/23 1129 SpO2 98 % 01/01/23 1118 Vitals shown include unvalidated device data. Anesthesia Post Evaluation Patient location during evaluation: ICU Patient participation: complete - patient cannot participate Level of consciousness: intubated and sedated Pain management: adequate Airway patency: patent Dental Injury: no Cardiovascular status: acceptable and hemodynamically stable Respiratory status: acceptable, ETT, intubated and ventilator Hydration status: acceptable Nausea/Vomiting: controlled No notable events documented. Patient can be discharged once all PACU criteria has been met. [facility] 01-01-2023 Note Patient: Lacy tapia Procedure Summary Date: 01/01/23 Room / Location: [facility] Operating Room Anesthesia Start: 657 Anesthesia Stop: 1129 Procedures: CABG AND SIS (Chest) Echocardiography transesophageal real-time Diagnosis: Atherosclerotic heart disease of [place] coronary artery without angina pectoris (Atherosclerotic heart disease of [place] coronary artery without angina pectoris [I25.10]) Surgeons: Uzair Rose MD Responsible Provider: Cruzito Frost MD Anesthesia Type: general ASA Status: 4 Anesthesia Type: general Vitals Value Taken Time BP 94/42 01/01/23 1118 Temp 35.6 ?C (96 ?F) 01/01/23 1118 Pulse 95 01/01/23 1129 Resp 16 01/01/23 1129 SpO2 98 % 01/01/23 1118 Vitals shown include unvalidated device data. Anesthesia Post Evaluation Patient participation: complete - patient cannot participate Post-procedure mental status: sedated/intubated. Pain score: 0 Pain management: adequate Multimodal analgesia pain management approach Airway patency: patent Two or more strategies used to mitigate risk of obstructive sleep apnea Cardiovascular status: hemodynamically stable Respiratory status: acceptable, intubated, ventilator and ETT Hydration status: acceptable No notable events documented. MIPS #[phone] PONV Patient received an inhalational anesthetic (4554F) Patient exhibits three or more risk factors for PONV (4556F) Patient received at [facility] 2 prophylactic Rx PONV anti-emtic agents of different classes preop and/or intraop (G9775) MIPS # 424 Perioperative Temperature Management Anesthesia time was 60 minutes or longer (4255F) Anesthesai administered was General (inhalational or TIVA) or Neuraxial block (X0424) At least one body temperature greater than 95.8F/35.5C achieved within the 30 mins immediately prior to or the 15 minutes immediately following anesthesia end time (G9771) MIPS #477 Multimodal Pain Management Not emergent case Patient was administered multimodal pain management (two or more drugs and/or interventions excluding systemic opioids) in the periopeartive period occurring at some time between 6 hours prior to anesthesia start time until discharged from PACU (G2148) [facility] #404 Anesthesiology Smoking Abstinence The patient is not a current smoker (e.g. cigarette, cigar, pipe, e-cigarette/vaping/marijuana) If no stop here (G9644) I completed my handoff to the receiving clinician during which we: 1. Identified the patient 2. Identified the responsible provider 3. Reviewed the pertinent medical history 4. Discussed the surgical course 5. Reviewed intra-op anesthesia management and issues during anesthesia 6. Set expectations for post-procedure period 7. Allowed opportunity for questions and acknowledgement of understanding. [facility] 01-01-2023 Note Arterial Line: Date/Time: 01/01/2023 7:05 AM An arterial line was placed Procedure performed using ultrasound guidance - Image permanently retained with wire or catheter in vein.in the Procedural for the following indication(s): continuous blood pressure monitoring and blood sampling needed. A 20 gauge (size), 1 and 3/4 inch (length), Arrow (type) catheter was placed, into the Left secured by Tegaderm and tape. Staffing Performed: WINE BLENDER Anesthesiologist: Cruzito Frost MD Resident/WINE BLENDER: Azar Rojo APRN - BOB Performed by: Azar Rojo APRN - BOB Authorized by: Azar Rojo APRN - BOB [facility] 01-01-2023 Consult note Associated Order (s): IP CONSULT TO ENDOCRINOLOGY Department of Internal Medicine Division of Endocrinology, Diabetes, & Metabolism Endocrinology Note Patient Name: Lacy Alvarado : 1950 AGE: 72 y.o. Room/Bed: T1-103/T1103 A Admission Date: 01/01/2023 Visit Date: 01/01/2023 Reason for Endocrine Consult: post op heart Provider/Team Requesting Consult: cts PCP: MAYDA GARCIA Outpt Loan Interviewer Mortgage: No ASSESSMENT: Cad s/p Cabgx4 Dm2 with hyperglycemia without fpc insulin Stress hyperglycemia Chf Hld/htn PLAN: Continue insulin gtt ICU goal <180 GMF goal <150 POCT q1 Hypoglycemia per protocol Carb controlled diet ANTICIPATED ENDOCRINE HOME GOING RECOMMENDATIONS: Optimized for Discharge from Endocrine standpoint: No Home Going Endocrine Rx Recommendations-- tbd Outpt Follow Up-- pcp SUBJECTIVE/HPI: CHIEF COMPLAINT: No chief complaint on file. Cabgx4 Noted hx dm2 in chart Out of OR Bgl below Insulin gtt 2/hr No pressors currently Intubated sedated Will clarify home meds when extubated CT in place Spoke to CTS and nursing in room Type of DM: 2 Onset of DM: unclear Home DM Medication Regimen: januvia 100 mg po daily DM control (last A1c/glucose data): Lab Results Component Value Date HGBA1C 6.7 (H) 12/29/2022 Glucose Date/Time Value Ref Range Status 01/01/2023 11:17 AM 101 (H) 70 - 100 mg/dL Final 01/01/2023 06:04 AM 125 (H) 70 - 100 mg/dL Final Review of Systems ROS negative except for those mentioned in HPI. OBJECTIVE: Vitals: 01/01/23 0537 01/01/23 0832 01/01/23 1118 01/01/23 1125 BP: (!) 162/90 (!) 94/42 BP Location: Left arm Patient Position: Lying Pulse: 96 94 97 Resp: 16 15 21 Temp: 36.4 C (97.6 F) (!) 35.6 C (96 F) TempSrc: Temporal Temporal SpO2: 100% 98% Weight: 78 kg (172 lb) 78 kg (172 lb) Height: 1.575 m (5' 2 ) 1.575 m (5' 2 ) Physical Exam Vitals and nursing note reviewed. Constitutional: General: She is not in acute distress. Appearance: She is ill-appearing. She is not toxic-appearing. Interventions: She is sedated and intubated. HENT: Head: Normocephalic and atraumatic. Nose: Nose normal. Mouth/Throat: Mouth: Mucous membranes are moist. Cardiovascular: Rate and Rhythm: Normal rate. Pulses: Normal pulses. Pulmonary: Effort: Pulmonary effort is normal. She is intubated. Abdominal: Palpations: Abdomen is soft. Musculoskeletal: Cervical back: Normal range of motion. Skin: General: Skin is warm and dry. 24 hour intake/output: Intake/Output Summary (Last 24 hours) at 01/01/2023 1140 Last data filed at 01/01/2023 1130 Gross per 24 hour Intake 1529 ml Output 620 ml Net 909 ml Diet: NPO diet Medications (as per EMR): HomeMeds: Current Outpatient Medications Medication Instructions aspirin 81 mg, Oral, Daily atorvastatin (LIPITOR) 80 mg, Oral, Daily calcium citrate (CALCITRATE) 950 mg, Oral, Daily carvedilol (Coreg) 12.5 MG tablet Oral, 2 times daily with meals clopidogrel (PLAVIX) 75 mg, Oral, Daily divalproex (DEPAKOTE) 1,000 mg, Oral, 2 times daily, 1,000 mg in am and 1,200 mg in evening DULoxetine (CYMBALTA) 30 mg, Oral, Daily, Do not crush or chew. hydroxychloroquine (PLAQUENIL) 200 mg, Oral, 2 times daily isosorbide mononitrate ER (IMDUR) 60 mg, Oral, Daily, Do not crush or chew. losartan (COZAAR) 50 mg, Oral, 2 times daily Multiple Vitamin (multivitamin) capsule 1 capsule, Oral, Daily mupirocin (Bactroban) 2 % ointment Apply liberal amount per nostril the night before surgery and then again the morning of surgery pantoprazole (PROTONIX) 40 mg, Oral, Daily before breakfast, Do not crush, chew, or split. polyethylene glycol (PEG) 3350 (MIRALAX) 17 g, Oral, Daily SITagliptin (JANUVIA) 100 mg, Oral, Daily traMADol (ULTRAM) 50 mg, Oral Scheduled Meds:acetaminophen, 1,000 mg, Oral, q8h albumin human, 25 g, IntraVENous, Once ceFAZolin, 2,000 mg, IntraVENous, q8h chlorhexidine, 15 mL, Mouth/Throat, BID lactated ringers, 500 mL, IntraVENous, Once Lidocaine, 1 patch, Topical, Daily mupirocin, , Nasal, BID [START ON 01/02/2023] pantoprazole, 40 mg, IntraVENous, Daily polyethylene glycol (PEG) 3350, 17 g, Oral, Daily senna-docusate sodium, 2 tablet, Oral, Nightly sugammadex, 4 mg/kg, IntraVENous, Once Continuous Infusions:insulin regular, 1-50 Units/hr, Last Rate: 2 Units/hr (01/01/23 1130) lactated ringers, 250 mL nitroprusside, 0.1-3 mcg/kg/min norepinephrine, 0.01-3.3 mcg/kg/min PRN Meds:PRN medications: albumin human, calcium gluconate, dextrose, dextrose, glucagon (rDNA), glucose, HYDROmorphone, ipratropium-albuterol, lactated ringers, magnesium hydroxide, magnesium sulfate OR magnesium sulfate, nitroprusside, norepinephrine, ondansetron ODT OR ondansetron, oxyCODONE OR oxyCODONE, potassium chloride OR potassium chloride 20 mEq in sodium chloride 0.9 % 250 mL IVPB OR potassium chloride 40 mEq in sodium chloride 0.9 % 500 mL IVPB, [START ON 01/02/2023] potassium chloride CR Diagnostic Workup: I reviewed pertinent Laboratory results, Radiographic results, and Other Clinical Notes at the time of today's encounter. Labs: No components found for: LABA1C No components found for: EAG Lab Results Component Value Date NA 140 01/01/2023 K 3.6 01/01/2023 CL 110 (H) 01/01/2023 CO2 20 (L) 01/01/2023 BUN 21 (H) 01/01/2023 CREATININE 0.77 01/01/2023 GLUCOSE 124 (H) 01/01/2023 CALCIUM 9.0 01/01/2023 No results found for: CHLPL, CHOL No results found for: TRIG No results found for: HDL No results found for: LDLCALC No results found for: VLDL No results found for: CHOLHDLRATIO No results found for: [id number] No results found for: TSH, J9VTPID, V6YQHGO, THYROIDAB Radiology reportsas per the Radiologist Radiology: ECG 12 lead Result Date: 01/01/2023 Sinus rhythm History/Other: Past Medical History: Past Medical History: Diagnosis Date CHF (congestive heart failure) (CMS/HCC) (HCC) Diabetes mellitus (HCC) GERD (gastroesophageal reflux disease) Hyperlipidemia Hypertension RA (rheumatoid arthritis) (HCC) Seizure (HCC) last seizure 5 months ago gand mal 08/24 Seizures (HCC) Sleep apnea Past Surgical History: Past Surgical History: Procedure Laterality Date CARDIAC CATHETERIZATION COLONOSCOPY CORONARY STENT PLACEMENT 03/22/2018 HYSTERECTOMY Allergy(ies): Allergies Allergen Reactions Prednisone Hives and Nausea And Vomiting Family History: No family history on file. Social History: Social History Tobacco Use Smoking status: Never Smokeless tobacco: Never Vaping Use Vaping Use: Never used Substance Use Topics Alcohol use: Yes Comment: once a year Drug use: Never Portions of the information within this encounter were entered using an electronic dictation system. Best attempts were made to edit/proofread the information prior to note completion. Despite the review of information, some errors may remain. If there are questions related to the information contained within the note please contact the signing physician directly. I spent 30 minutes with the pt which involved coordination of care, medical evaluation, review of records, and/or counseling of the pt regarding his/her condition/disease state/prognosis on the date of this note. Associated attestation - Angela Smith MD - 01/01/2023 11:08 PM EDT I performed a history and physical examination of the patient. I have reviewed the patient's chart including pertinent history, medications, labs, radiology, and other reports. I reviewed the resident/SONYA's note, agree with the documented findings and plan of care (with modifications noted if any), and discussed the management plan. I have performed a substantive portion of the the medical decision making. Pt is s/p CABG 01/01/23. Was still intubated; sedation wearing off. She has T2DM, on Januvia at home. BG stable. Pt on insulin drip post op, at 0-4 units/hr. No pressors. Niece at bedside. Lab Results Component Value Date HGBA1C 6.7 (H) 12/29/2022 Lab Results Component Value Date GLUCOSE 124 (H) 01/01/2023 CALCIUM 9.0 01/01/2023 NA 140 01/01/2023 K 3.6 01/01/2023 CO2 20 (L) 01/01/2023 CL 110 (H) 01/01/2023 BUN 21 (H) 01/01/2023 CREATININE 0.77 01/01/2023 BP 125/50 Pulse 106 Temp 37.2 C (99 F) Resp (!) 28 Ht 5' 2 (1.575 m) Wt 172 lb (78 kg) SpO2 100% BMI 31.46 kg/m Obese, intubated, arousable, not in distress, RRR, chest incision intact, good pulses, clear breath sounds, no rales, +chest tubes, abdomen soft, nno edema. Dx: Type 2 DM, with cardiac complications. CAD s/p CABG. Plan: - will continue insulin infusion per protocol then transition to subcutaneous insulin likely tomorrow - continue blood glucose monitoring - discussed postop hyperglycemia management and goals of therapy with family - patient may be able to resume Januvia on discharge for DM; can also consider other agents such as SGLT-2i or GLP-1a. - will follow Total time 25 minutes which include review of records, counseling, management, and coordination of care as documented in note. [employer] Work Phone: 01-01-2023 Note Airway Date/Time: 01/01/2023 7:08 AM Urgency: scheduled Airway not difficult General Information and Staff Patient location during procedure: Procedural Anesthesiologist: Cruzito Frost MD Resident/WINE BLENDER: GORDO Kenney CRNA Performed: WINE BLENDER Performed by: Azar Rojo APRN - WINE BLENDER Authorized by: GORDO Kenney CRNA Indications and Patient Condition Indications for airway management: anesthesia Sedation level: Asleep Preoxygenated: yes Patient position: sniffing Mask difficulty assessment: 1 - vent by mask Final Airway Details Final airway type: endotracheal airway Successful airway: ETT Cuffed: yes Successful intubation technique: video laryngoscopy Facilitating devices/methods: intubating stylet Endotracheal tube insertion site: oral Blade: [place] Blade size: #3 ETT size (mm): 8.0 Cormack-Lehane Classification: grade IIa - partial view of glottis Placement verified by: chest auscultation and capnometry Measured from: gums ETT to gums (cm): 22 Number of attempts at approach: 1 Ventilation between attempts: BVM Number of other approaches attempted: 0 [facility] 01-01-2023 Note Central Venous Line: Date/Time: 01/01/2023 7:26 AM A central venous line was placed in the Procedural for the following indication(s): central venous access. Medical reason for not performing maximal sterile barrier technique: no The patient was placed in Trendelenburg position. Right internal jugular vein was prepped. The site was prepped with Chlorhexidine. Size: 7 Fr Catheter type: introducer Number of Lumens: single lumen During the procedure, the following specific steps were taken: target vein identified, needle advanced into vein and blood aspirated and guidewire advanced into vein. Procedure performed using ultrasound guidance - Image permanently retained with wire or catheter in vein. Intravenous verification was obtained by venous blood return. During the procedure the patient experienced: patient tolerated procedure well with no complications. Staffing Performed: anesthesiologist Anesthesiologist: Cruzito Frost MD Performed by: GORDO Kenney CRNA Authorized by: GORDO Kenney CRNA [facility] 01-01-2023 Consult note Formatting of th is note is different from the original. Images from the original note were not included. [facility]: Critical Care Consultation Note Date: 01/01/23 PATIENT NAME: Lacy Alvarado : 1950 (72 y.o.) Reason for Consult: Critical Care & Vent Management HPI: Lacy Alvarado is a 72 y.o. female was referred to us by Dr. Bhanu Milian. 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 Patient also had an echo done which showed mild (1+) tricuspid valve insufficiency. Dr Rose office note 12/23/2022. She presents for CABG today from the OP setting Surgery: 01/01/23: [place] - CABG x 4 (Official Report Pending) Interval History: 01/01/23: POD #0: Patient arrived to the unit, intubated and sedated. Surgical hand off completed below. Review of Systems Reason unable to perform ROS: Intubated and sedated. Allergies: Prednisone Past Medical History: has a past medical history of CHF (congestive heart failure) ([facility]CC) ([facility]), Diabetes mellitus ([facility]), GERD (gastroesophageal reflux disease), Hyperlipidemia, Hypertension, RA (rheumatoid arthritis) ([facility]), Seizure ([facility]), Seizures ([facility]), and Sleep apnea. Past Surgical History: has a past surgical history that includes Cardiac catheterization; Coronary stent placement (03/22/2018); Hysterectomy; and Colonoscopy. Social History: reports that she has never smoked. She has never used smokeless tobacco. She reports current alcohol use. She reports that she does not use drugs. Family History: family history is not on file. Medications: Prior to Admission medications Medication Sig Start Date End Date Taking? Authorizing Provider aspirin 81 MG EC tablet Take 81 mg by mouth daily. Yes Historical Provider, atorvastatin (Lipitor) 80 MG tablet Take 80 mg by mouth daily. Yes Historical Provider, calcium citrate (Calcitrate) 950 (200 Ca) MG tablet Take 950 mg by mouth daily. Yes Historical Provider, carvedilol (Coreg) 12.5 MG tablet Take by mouth 2 times daily (with meals). Yes Historical Provider, clopidogrel (Plavix) 75 MG tablet Take 75 mg by mouth daily. Yes Historical Provider, divalproex (Depakote) 500 MG EC tablet Take 1,000 mg by mouth 2 times daily. 1,000 mg in am and 1,200 mg in evening Yes Historical Provider, DULoxetine (Cymbalta) [address] capsule Take 30 mg by mouth daily. Do not crush or chew. Yes Historical Provider, hydroxychloroquine (Plaquenil) 200 MG tablet Take 200 mg by mouth 2 times daily. Yes Historical Provider, isosorbide mononitrate ER (Imdur) 60 MG 24 hr tablet Take 60 mg by mouth daily. Do not crush or chew. Yes Historical Provider, losartan (Cozaar) 50 MG tablet Take 50 mg by mouth 2 times daily. Yes Historical Provider, Multiple Vitamin (multivitamin) capsule Take 1 capsule by mouth daily. Yes Historical Provider, pantoprazole (ProtoNix) 40 MG EC tablet Take 40 mg by mouth every morning (before breakfast). Do not crush, chew, or split. Yes Historical Provider, polyethylene glycol, PEG, 3350 (Miralax) 17 g packet Take 17 g by mouth daily. Yes Historical Provider, SITagliptin (Januvia) 100 MG tablet Take 100 mg by mouth daily. Yes Historical Provider, mupirocin (Bactroban) 2 % ointment Apply liberal amount per nostril the night before surgery and then again the morning of surgery Patient not taking: Reported on 01/01/2023 12/24/22 Malik Tabares APRN - TRANSPORT MANAGER traMADol (Ultram) 50 MG tablet Take 50 mg by mouth. 11/28/21 Historical Provider, Surgery Hand Off: Arrival Time in HLU: 1115 Complications/Pertinent Events: Last Paralytic: Medications given in route: Gtts OR report Propofol: 50 Insulin: 1 Amicar: 29 Current gtts upon arrival Propofol:50 Insulin: 1 Amicar: 29 Devices: Epicardial wires: yes [] no [x] IABP: yes [] no [x] LVAD: yes [] no [x] Speed: Equipment: Back up controller yes [] no [x] Blood Transfusions Intra Op: yes [] no [x] CellSaver: 600 Vital Signs including Cardiac Numbers (if indicated) at Conclusion of Hand-off OR HLU CVP 4 3 Additional Interventions/Misc during Handoff None Objective: BP (!) 162/90 Pulse 96 Temp 36.4 C (97.6 F) (Temporal) Resp 16 Ht 1.575 m (5' 2 ) Wt 78 kg (172 lb) SpO2 100% BMI 31.46 kg/m Intake/Output Summary (Last 24 hours) at 01/01/2023 0858 Last data filed at 01/01/2023 0713 Gross per 24 hour Intake 11 ml Output -- Net 11 ml Physical Exam Cardiovascular: Rate and Rhythm: Normal rate and regular rhythm. Heart sounds: Normal heart sounds. Pulmonary: Effort: Pulmonary effort is normal. Breath sounds: Normal breath sounds. Abdominal: General: Bowel sounds are normal. Palpations: Abdomen is soft. There is no mass. Tenderness: There is no abdominal tenderness. Hernia: No hernia is present. Skin: General: Skin is warm and dry. Neurological: Mental Status: She is alert and oriented to person, place, and time. Diagnostics: Reviewed in EMR Labs: Reviewed in EMR BMP: Recent Labs 12/29/22 1533 NA 141 K 4.0 CL 105 CO2 28 BUN 19* CREATININE 0.79 CALCIUM 9.1 CBC: Recent Labs 12/29/22 1551 WBC 5.0 HGB 12.5 HCT 36.4 PLT 190 MCV 96.5 RDW 14.6* INR: Recent Labs 12/29/22 1533 INR 1.0 Assessment: Post operative Pulm Management: Normal Post-operative Course Post-operative Atrial Fibrillation: []Yes [x] No Acute blood loss anemia/consumptive none Plan: Reverse Sedation Rapid track to extubation Dilaudid PRN pain DC morphine Start nipride for HTN CXR to verify lines EKG ECHO EF=60% - Sugamadex - Hemodynamic goals: CI >2.0, SBP 90-130 mmHg, MAP 60-75 -PRN Hypotension CI >2.0 euvolemic with low SVR- Levophed gtt CI <2.0 euvolemic - Epinephrine gtt - Chest tubes: no air leak or fluctuation noted, suction -20cm - Cefazolin - surgical prophy for 5 doses total - Wean to Extubation: Arrival Time in unit: 1115 - Vent: ACVC+, TV 6ml/kg/min, rate 12, fio2 100% PEEP 8 VAP protocol: HOB >30 degrees; peridex BID - Insulin gtt; per endo/protocol - GI prophy: Protonix IV daily Patient treatment plan and plan of care discuss with Dr. GONSALEZ Associated attestation - Carlos Chavarria DO - 01/01/2023 2:48 PM EDT I have personally performed a [id number] diagnostic evaluation on this patient on date of service 01/01/23 . History, labs, imaging studies, and electronic medical record have been reviewed by me. This note documented by the []warehouse operations associate [x]SONYA reflects my history, exam, and medical decision making. I have reviewed and agree with the care plan. Changes were made in the orders as necessary. ROS documentation was reviewed and negative unless otherwise stated in HPI. Patient post op CABG x3, uncomplicated and not requiring vasoactives. Vent settings are minimal, plan for early extubation and post operative care. Hgb 6.9 s/p transfusion of PRBCs Insulin infusion Pain control No air leak in CTs No Pacer wires Overinteractive Media Phone: 01-01-2023 Note Formatting of this n ote might be different from the original. Cardiothoracic Surgery Operative Report Pre-operative Diagnosis: Multivessel coronary artery disease Post-operative Diagnosis: Multivessel coronary artery disease Procedure: Coronary revascularization x4: Left internal mammary artery grafted to the left anterior descending coronary artery, reverse saphenous vein graft grafted to the obtuse marginal coronary artery, reverse saphenous vein graft graft to the first diagonal coronary artery, reverse saphenous vein graft grafted to the posterior descending branch of the right coronary artery; endoscopic vein harvesting left lower extremity (calf to thigh); intraoperative transesophageal echocardiography Surgeon: Uzair Rose MD Mission Support Specialist(s): [] Thomas Silva [x] Rg Marie [x] Yemi Sharma [] Yemi Tabares [] Other Anesthesia: General Estimated blood loss: Pump suction and Cell Saver used Total IV fluids: See anesthesia and perfusion record Blood Transfusion?: No Drains: Mediastinum left pleural space Specimens: None Complications: None Condition: Stable Prophylactic Antibiotics: Yes 1st or 2nd generation cephalosporin given (or other antibiotic in the event of an allergy) within 1 hour of surgical incision (two hours if receiving Vancomycin or flouroquinolone) If NO, indication reason why: [] Patient on continuous antibiotics for documented preoperative infection [] Other: The STS Risk Calculator score was calculated and discussed with the patient/family prior to surgery. Yes: [x] No: [] Not a risk calculated procedure [] Emergent or Emergent/Salvage Used of NIKKIE: Yes No due to: [] Subclavian stenosis [] Emergent or Emergent/Salvage [] Prior cardiothoracic surgery [] Prior mediastinal radiation [] No bypassable LAD disease, LAD not needed/bypassed: (This can include clean LAD, diffusely diseased LAD or other condition resulting in the LAD not being bypassed). Beta-teri within 24 hours prior to surgical incision: [x] Yes - please see documentation in EMR [] No [] Allergy [] Heart block [] COPD [] Hypotension BP: [] Bradycardia HR: INDICATIONS FOR SURGERY: Lacy Alvarado is a 72 y.o. female who was referred by Dr. Bhanu Milian. Patient was admitted on 12/18/22 to [facility] with CP. She had a history of CHF, CAD, DM type 2, hyperlipidemia, epilepsy, HTN, RA, ILNA, and prior PCI with stent of the left anterior descending artery. Patient underwent a left heart catheterization that demonstrated a high grade lesion in the circumflex artery, a 50% lesion in the LAD, proximal disease within the first diagonal, and a 50 to 60% lesion in the mid RCA. Patient also had an echo done which showed mild (1+) tricuspid valve insufficiency. The risk benefits and alternatives were discussed in detail with the patient and she agreed to proceed with surgical revascularization. The culprit lesion appeared to be the complex lesion within the circumflex coronary artery. DESCRIPTION OF PROCEDURE: Patient was taken to the operative suite in a fasting state and general endotracheal anesthesia was instituted. Monitoring lines were inserted by the department of anesthesia and intraoperative esophageal echocardiography was performed. No valvular pathology was seen. The details will follow under separate report. After the patient was positioned prepped and draped in an appropriate timeout conducted, the left lower extremity was incised and the greater saphenous vein was procured from the calf to the thigh using an endoscopic vein harvesting technique. The vein was prepared in the usual fashion and the incisions were closed in usual manner. They have. Simultaneously, median sternotomy was employed and the left internal mammary artery was harvested in a skeletonized and pedicled fashion. Heparin was administered to obtain an ACT of greater than 400 seconds. The pericardium was opened and marsupialized and pursestrings were placed and central cannulation was performed with a 6.5 mm cannula in the distal ascending aorta, a cardioplegia needle in the proximal ascending aorta, and a multistage venous cannula via the right atrium into the inferior vena cava. Cardiopulmonary bypass was established there was crossclamped and cardioplegia was administered. Greater than 1 L of cardioplegia was initially administered and then intermittent aliquots of cold blood were given between each distal anastomoses. Each anastomosis distally was performed in a similar fashion. The target coronary artery was identified, an arteriotomy was performed, and the bypass, was grafted in the side with a running 7-0 Prolene suture in an open fashion, probed prior to completion, and then infused with saline at the conclusion to assure adequate flow. The first bypass to be performed was a reverse saphenous vein graft grafted to the PDA of the right coronary artery. This anastomosis proceeded smoothly and there was good flow. The target was adequate. Next a reverse saphenous vein graft was grafted to the large OM vessel. This was a good target and the anastomosis proceeded smoothly and there was good flow. Next a reverse saphenous vein graft was grafted to the relatively small first diagonal. This anastomosis proceeded smoothly and there was good flow. Last the left internal mammary artery was grafted to the distal mid LAD. This anastomosis proceeded smoothly and there was good flow. Hotshot was administered the cross-clamp was removed. A partial occluding clamp was placed on the ascending aorta and 3 proximal. The grafts were grafted in the side with the ascending aorta taking care to avoid kinking twisting and excessive tension. Once these anastomoses were completed with a running 5-0 Prolene sutures, preparations were made to wean and separate from cardiopulmonary bypass. We weaned and from cardiopulmonary bypass and protamine was administered once adequate cardiac function had been identified. Decannulation ensued. Pursestrings were secured. Chest tubes were inserted in the mediastinum and left pleural space. Hemostasis was achieved. We then proceeded with closure. The sternum was reapproximated with [id number] wires and the overlying tissues were closed in multiple layers. The patient was transported to the intensive care unit in serious but stable condition. [facility] 12-29-2022 Note Patient: Lacy tapia Procedure Information Date/Time: 01/01/23 0030 Procedures: CABG AND SIS (Chest) Echocardiography transesophageal real-time Location: [address] Operating Room Surgeons: Uzair Rose MD Past Medical History: Past Medical History: No date: CHF (congestive heart failure) ([facility]) ([facility]LY [facility]) No date: Diabetes mellitus ([facility]) No date: GERD (gastroesophageal reflux disease) No date: Hyperlipidemia No date: Hypertension No date: RA (rheumatoid arthritis) ([facility]) No date: Seizure ([facility]) Comment: last seizure 5 months ago nathaniel trevor 08/24 No date: Seizures ([facility]) No date: Sleep apnea Past Surgical History: Past Surgical History: No date: CARDIAC CATHETERIZATION No date: COLONOSCOPY 03/22/2018: CORONARY STENT PLACEMENT No date: HYSTERECTOMY Social History: TOBACCO: reports that she has never smoked. She has never used smokeless tobacco. ETOH: reports current alcohol use. Social History Substance and Sexual Activity Drug Use Never Family History: No family history on file. Screening: unknown Clinical information reviewed: Tobacco Allergies Meds Med Hx Surg Hx Fam Hx Soc Hx Physical Exam Airway Mallampati: III Neck ROM: full Mouth Open: normal Cardiovascular Dental (+) Upper Dentures Pulmonary Abdominal Other findings: Lowers intact Anesthesia Plan patient is NPO appropriate Any family history or previous problems with anesthesia no ASA 4 general Any family history or previous problems with anesthesia no The patient is not a current smoker. Blood Glucose Insulin Sliding Scale: low ERAS Type No ERAS Xanax ordered preop LINA Screening Labs: No results found for: WBC, HGB, HCT, MCV, PLT No results found for: NA, K, CL, CO2, BUN, CREATININE, GLUCOSE, CALCIUM, PROT, BILIRUBINFL, ALKPHOS, AST, ALT, EGFR, GLOB No echocardiogram results found for the past 14 days No results found for this or any previous visit. [facility] 12-29-2022 Note Comprehensive Pre Bridges rgical History and Physical ? Name: Lacy Alvarado : 1950 (Age-72 y.o.) Date of Service: Pt seen/examined on 12/29/2022 Procedure Information Date/Time: 01/01/23729 Procedures: CABG AND SIS (Chest) Echocardiography transesophageal real-time Location: [facility] OR [address] [place] [address] Operating Room Surgeons: Uzair Rose MD Chief Complaint: Heart vessels are clogged up patient states ASSESSMENT/PLAN: Patient is considered high risk for this high risk procedure/surgery () with no reducible risk factors. Based on the above evaluation, the benefits of the planned procedure likely exceed the risks. The patient is medically optimized to proceed with the planned procedure without any further cardiopulmonary testing. 1) Atherosclerotic heart disease of [place] coronary artery without angina pectoris [I25.10] Pre-op diagnosis: Atherosclerotic heart disease of [place] coronary artery without angina pectoris [I25.10] - Managed per surgery 2) essential hypertension -imdur -coreg -cozaar 3) CHF -no signs of fluid retention. No lower leg edema ,no RALES -coreg -cozaar 4)LINA -cpap 5)diabetes type 2 -januvia 6)RA -plaquenil 7) GERD -protonix 8)seizures/epilepsy -seizure 3 months ago -Depakote pt states she is getting this level drawn this week by her PCP Visit Type: Pre-Admission Testing Visit Labs Ordered: YES - PER [facility] PROTOCOL Sleep Referral Ordered: NO - ALREADY DIAGNOSED WITH LINA AND COMPLIANT WITH CPAP Total time spent (which include face to face and non face to face encounters) : 30 minutes Toxic drug monitoring/narrow therapeutic index drug monitoring : # Drug name : Bryceuvia # Route administered : po # Method of monitoring : bmp. Glucose PAT Protocol referenced includes: 1. Anesthesia Lab Protocol Orders 2. Perioperative Cardiovascular Risk Assessment 3. Anesthesia Assessment 4. Pain Assessment and Acute Pain Service Consult (if appropriate) 5. Medical Clearance/Consult from Internal Medicine ([facility]) 6. Shower/Wash Order (for designated surgeries) 7. LINA Screen and Sleep Clinic Referral (if appropriate) History Of Present Illness: 72 y.o. female who we are asked to see/evaluate by [place] [id number] for pre-operative evaluation prior to . CABG AND SIS (Chest) [23893 CPT(R)] Echocardiography transesophageal real-time [93056 CPT(R)] Anesthesia type: General Reason for Visit: Multivessel coronary artery disease-evaluate for coronary bypass surgery Assessment and plan This is a 72-year-old female has new onset of angina and coronary artery disease involving the right coronary artery, left circumflex, and the LAD/diagonal distributions. Recommend coronary revascularization after the risk benefits and alternatives were discussed in great detail with the patient and her family. We will proceed on an elective basis. History of Present Illness Lacy Alvarado is a 72 y.o. female was referred to us by Dr. Bhanu Milian. Patient was admitted on 12/18/22 to [facility] with CP. Per notes, patient has a history of CHF, CAD, DM type 2, hyperlipidemia, epilepsy, HTN, RA, LINA, and prior PCI with stent of the left anterior descending artery. . Patient underwent a left heart catheterization that demonstrated: a high grade lesion in the circumflex artery. Patient also had an echo done which showed mild (1+) tricuspid valve insufficiency. Dr Rose office note 12/23/2022 ? Denies history of DC, TIA, CVA Past Medical History: Past Medical History: No date: CHF (congestive heart failure) ([facility]) (FORM[facility]LY [facility]) No date: Diabetes mellitus ([facility]) No date: GERD (gastroesophageal reflux disease) No date: Hyperlipidemia No date: Hypertension No date: RA (rheumatoid arthritis) ([facility]) No date: Seizure ([facility]) Comment: last seizure 5 months ago nathaniel mal 08/24 No date: Seizures ([facility]) No date: Sleep apnea Past Surgical History: Past Surgical History: No date: CARDIAC CATHETERIZATION No date: COLONOSCOPY 03/22/2018: CORONARY STENT PLACEMENT No date: HYSTERECTOMY Medications Prior to Admission: Prior to Admission medications Medication Sig Start Date End Date Taking? Authorizing Provider aspirin 81 MG EC tablet Take 81 mg by mouth daily. Historical Provider, atorvastatin (Lipitor) 80 MG tablet Take 80 mg by mouth daily. Historical Provider, calcium citrate (Calcitrate) 950 (200 Ca) MG tablet Take 950 mg by mouth daily. Historical Provider, carvedilol (Coreg) 12.5 MG tablet Take by mouth 2 times daily (with meals). Historical Provider, chlorhexidine (Peridex) 0.12 % solution Use 15 mL in the mouth or throat Once for 1 dose. Swish for 30 seconds and spit out the night before surgery. Do not swallow. 12/24/22 12/24/22 Malik Tabares APRN - SERENA clopidogrel (Plavix) 75 MG tablet Take 75 mg (more content not included)... [facility] 12-29-2022 Note Comprehensive Pre Bridges rgical History and Physical ? Name: Lacy Alvarado : 1950 (Age-72 y.o.) Date of Service: Pt seen/examined on 12/29/2022 Procedure Information Date/Time: 01/01/23 0730 Procedures: CABG AND SIS (Chest) Echocardiography transesophageal real-time Location: [facility] OR Operating Room Surgeons: Uzair Rose MD Chief Complaint: Heart vessels are clogged up patient states ASSESSMENT/PLAN: Patient is considered high risk for this high risk procedure/surgery () with no reducible risk factors. Based on the above evaluation, the benefits of the planned procedure likely exceed the risks. The patient is medically optimized to proceed with the planned procedure without any further cardiopulmonary testing. 1) Atherosclerotic heart disease of [place] coronary artery without angina pectoris [I25.10] Pre-op diagnosis: Atherosclerotic heart disease of [place] coronary artery without angina pectoris [I25.10] - Managed per surgery 2) essential hypertension -imdur -coreg -cozaar 3) CHF -no signs of fluid retention. No lower leg edema ,no RALES -coreg -cozaar 4)LINA -cpap 5)diabetes type 2 -januvia 6)RA -plaquenil 7) GERD -protonix 8)seizures/epilepsy -seizure 3 months ago -Depakote pt states she is getting this level drawn this week by her PCP Visit Type: Pre-Admission Testing Visit Labs Ordered: YES - PER PAT PROTOCOL Sleep Referral Ordered: NO - ALREADY DIAGNOSED WITH LINA AND COMPLIANT WITH CPAP Total time spent (which include face to face and non face to face encounters) : 30 minutes Toxic drug monitoring/narrow therapeutic index drug monitoring : # Drug name : Bryceuvia # Route administered : po # Method of monitoring : bmp. Glucose PAT Protocol referenced includes: 1. Anesthesia Lab Protocol Orders 2. Perioperative Cardiovascular Risk Assessment 3. Anesthesia Assessment 4. Pain Assessment and Acute Pain Service Consult (if appropriate) 5. Medical Clearance/Consult from Internal Medicine ([facility]) 6. Shower/Wash Order (for designated surgeries) 7. LINA Screen and Sleep Clinic Referral (if appropriate) History Of Present Illness: 72 y.o. female who we are asked to see/evaluate by [place] [id number] for pre-operative evaluation prior to . CABG AND SIS (Chest) [31508 CPT(R)] Echocardiography transesophageal real-time [78465 CPT(R)] Anesthesia type: General Reason for Visit: Multivessel coronary artery disease-evaluate for coronary bypass surgery Assessment and plan This is a 72-year-old female has new onset of angina and coronary artery disease involving the right coronary artery, left circumflex, and the LAD/diagonal distributions. Recommend coronary revascularization after the risk benefits and alternatives were discussed in great detail with the patient and her family. We will proceed on an elective basis. History of Present Illness Lacy Alvarado is a 72 y.o. female was referred to us by Dr. Bhanu Milian. Patient was admitted on 12/18/22 to [facility] with CP. Per notes, patient has a history of CHF, CAD, DM type 2, hyperlipidemia, epilepsy, HTN, RA, LINA, and prior PCI with stent of the left anterior descending artery. . Patient underwent a left heart catheterization that demonstrated: a high grade lesion in the circumflex artery. Patient also had an echo done which showed mild (1+) tricuspid valve insufficiency. Dr Rose office note 12/23/2022 ? Denies history of DC, TIA, CVA Past Medical History: Past Medical History: No date: CHF (congestive heart failure) ([facility]) ([facility]) No date: Diabetes mellitus ([facility]) No date: GERD (gastroesophageal reflux disease) No date: Hyperlipidemia No date: Hypertension No date: RA (rheumatoid arthritis) ([facility]) No date: Seizure ([facility]) Comment: last seizure 5 months ago nathaniel murray 08/24 No date: Seizures ([facility]) No date: Sleep apnea Past Surgical History: Past Surgical History: No date: CARDIAC CATHETERIZATION No date: COLONOSCOPY 03/22/2018: CORONARY STENT PLACEMENT No date: HYSTERECTOMY Medications Prior to Admission: Prior to Admission medications Medication Sig Start Date End Date Taking? Authorizing Provider aspirin 81 MG EC tablet Take 81 mg by mouth daily. Historical Provider, atorvastatin (Lipitor) 80 MG tablet Take 80 mg by mouth daily. Historical Provider, calcium citrate (Calcitrate) 950 (200 Ca) MG tablet Take 950 mg by mouth daily. Historical Provider, carvedilol (Coreg) 12.5 MG tablet Take by mouth 2 times daily (with meals). Historical Provider, chlorhexidine (Peridex) 0.12 % solution Use 15 mL in the mouth or throat Once for 1 dose. Swish for 30 seconds and spit out the night before surgery. Do not swallow. 12/24/22 12/24/22 Malik Tabares APRN - SERENA clopidogrel (Plavix) 75 MG tablet Take 75 mg (more content not included)... [facility] 12-29-2022 History and physical note Images from the original note were not included. Comprehensive Pre Surgical History and Physical ? Name: Lacy Alvarado : 1950 (Age-72 y.o.) Date of Service: Pt seen/examined on 12/29/2022 Procedure Information Date/Time: 01/01/23 0730 Procedures: CABG AND SIS (Chest) Echocardiography transesophageal real-time Location: [facility] OR Operating Room Surgeons: Uzair Rose MD Chief Complaint: Heart vessels are clogged up patient states ASSESSMENT/PLAN: Patient is considered high risk for this high risk procedure/surgery () with no reducible risk factors. Based on the above evaluation, the benefits of the planned procedure likely exceed the risks. The patient is medically optimized to proceed with the planned procedure without any further cardiopulmonary testing. 1) Atherosclerotic heart disease of [place] coronary artery without angina pectoris [I25.10] Pre-op diagnosis: Atherosclerotic heart disease of [place] coronary artery without angina pectoris [I25.10] - Managed per surgery 2) essential hypertension -imdur -coreg -cozaar 3) CHF -no signs of fluid retention. No lower leg edema ,no RALES -coreg -cozaar 4)LINA -cpap 5)diabetes type 2 -januvia 6)RA -plaquenil 7) GERD -protonix 8)seizures/epilepsy -seizure 3 months ago -Depakote pt states she is getting this level drawn this week by her PCP Visit Type: Pre-Admission Testing Visit Labs Ordered: YES - PER PAT PROTOCOL Sleep Referral Ordered: NO - ALREADY DIAGNOSED WITH LINA AND COMPLIANT WITH CPAP Total time spent (which include face to face and non face to face encounters) : 30 minutes Toxic drug monitoring/narrow therapeutic index drug monitoring : # Drug name : Januvia # Route administered : po # Method of monitoring : bmp. Glucose PAT Protocol referenced includes: 1. Anesthesia Lab Protocol Orders 2. Perioperative Cardiovascular Risk Assessment 3. Anesthesia Assessment 4. Pain Assessment and Acute Pain Service Consult (if appropriate) 5. Medical Clearance/Consult from Internal Medicine ([facility]) 6. Shower/Wash Order (for designated surgeries) 7. LINA Screen and Sleep Clinic Referral (if appropriate) History Of Present Illness: 72 y.o. female who we are asked to see/evaluate by [place] [id number] for pre-operative evaluation prior to . CABG AND SIS (Chest) [05050 CPT(R)] Echocardiography transesophageal real-time [78531 CPT(R)] Anesthesia type: General Reason for Visit: Multivessel coronary artery disease-evaluate for coronary bypass surgery Assessment and plan This is a 72-year-old female has new onset of angina and coronary artery disease involving the right coronary artery, left circumflex, and the LAD/diagonal distributions. Recommend coronary revascularization after the risk benefits and alternatives were discussed in great detail with the patient and her family. We will proceed on an elective basis. History of Present Illness Lacy Alvarado is a 72 y.o. female was referred to us by Dr. Bhanu Milian. Patient was admitted on 12/18/22 to [facility] with CP. Per notes, patient has a history of CHF, CAD, DM type 2, hyperlipidemia, epilepsy, HTN, RA, LINA, and prior PCI with stent of the left anterior descending artery. . Patient underwent a left heart catheterization that demonstrated: a high grade lesion in the circumflex artery. Patient also had an echo done which showed mild (1+) tricuspid valve insufficiency. Dr Rose office note 12/23/2022 ? Denies history of DC, TIA, CVA Past Medical History: Past Medical History: No date: CHF (congestive heart failure) (CMS/HCC) ([facility]) No date: Diabetes mellitus (HCC) No date: GERD (gastroesophageal reflux disease) No date: Hyperlipidemia No date: Hypertension No date: RA (rheumatoid arthritis) ([facility]) No date: Seizure (FORM[facility]LY [facility]) Comment: last seizure 5 months ago nathaniel murray 08/24 No date: Seizures (HCC) No date: Sleep apnea Past Surgical History: Past Surgical History: No date: CARDIAC CATHETERIZATION No date: COLONOSCOPY 03/22/2018: CORONARY STENT PLACEMENT No date: HYSTERECTOMY Medications Prior to Admission: Prior to Admission medications Medication Sig Start Date End Date Taking? Authorizing Provider aspirin 81 MG EC tablet Take 81 mg by mouth daily. Historical Provider, atorvastatin (Lipitor) 80 MG tablet Take 80 mg by mouth daily. Historical Provider, calcium citrate (Calcitrate) 950 (200 Ca) MG tablet Take 950 mg by mouth daily. Historical Provider, carvedilol (Coreg) 12.5 MG tablet Take by mouth 2 times daily (with meals). Historical Provider, chlorhexidine (Peridex) 0.12 % solution Use 15 mL in the mouth or throat Once for 1 dose. Swish for 30 seconds and spit out the night before surgery. Do not swallow. 12/24/22 12/24/22 GORDO Felix CNP clopidogrel (Plavix) 75 MG tablet Take 75 mg by mouth daily. Historical Provider, divalproex (Depakote) 500 MG EC tablet Take 1,000 mg by mouth 2 times daily. Do not crush, chew, or split. Historical Provider, DULoxetine (Cymbalta) [address] capsule Take 30 mg by mouth daily. Do not crush or chew. Historical Provider, hydroxychloroquine (Plaquenil) 200 MG tablet Take 200 mg by mouth 2 times daily. Historical Provider, isosorbide mononitrate ER (Imdur) 60 MG 24 hr tablet Take 60 mg by mouth daily. Do not crush or chew. Historical Provider, losartan (Cozaar) 50 MG tablet Take 50 mg by mouth 2 times daily. Historical Provider, Multiple Vitamin (multivitamin) capsule Take 1 capsule by mouth daily. Historical Provider, mupirocin (Bactroban) 2 % ointment Apply liberal amount per nostril the night before surgery and then again the morning of surgery 12/24/22 GORDO Felix CNP pantoprazole (ProtoNix) 40 MG EC tablet Take 40 mg by mouth every morning (before breakfast). Do not crush, chew, or split. Historical Provider, polyethylene glycol, PEG, 3350 (Miralax) 17 g packet Take 17 g by mouth daily. Historical Provider, SITagliptin (Januvia) 100 MG tablet Take 100 mg by mouth daily. Historical Provider, traMADol (Ultram) 50 MG tablet Take 50 mg by mouth. 11/28/21 Historical Provider, CHRONIC NARCOTIC USE: No Allergies: Prednisone If patient has opioid allergy, is it okay to take Acetaminophen: N/A Social History: TOBACCO: reports that she has never smoked. She has never used smokeless tobacco. ETOH: reports current alcohol use. Social History Substance and Sexual Activity Drug Use Never Family History: No family history on file. REVIEW OF SYSTEMS: Review of Systems Respiratory: Negative. Cardiovascular: Negative. Gastrointestinal: Negative. Genitourinary: Negative. Musculoskeletal: Negative. All other systems reviewed and are negative. Physical Exam: Physical Exam Vitals and nursing note reviewed. HENT: Head: Normocephalic. Nose: Nose normal. Mouth/Throat: Mouth: Mucous membranes are moist. Eyes: Pupils: Pupils are equal, round, and reactive to light. Cardiovascular: Rate and Rhythm: Normal rate and regular rhythm. Heart sounds: Normal heart sounds. Pulmonary: Effort: Pulmonary effort is normal. Breath sounds: Normal breath sounds. No decreased breath sounds, wheezing, rhonchi or rales. Abdominal: General: Bowel sounds are normal. There is no distension. Tenderness: There is no abdominal tenderness. Musculoskeletal: General: Normal range of motion. Right lower leg: No edema. Left lower leg: No edema. Skin: General: Skin is warm. Capillary Refill: Capillary refill takes less than 2 seconds. Neurological: General: No focal deficit present. Mental Status: She is alert. Psychiatric: Mood and Affect: Mood normal. Vitals: Vitals Value Taken Time BP 137/74 12/29/22 1446 Temp 36.2 C (97.2 F) 12/29/22 1446 Pulse 88 12/29/22 1446 Resp 16 12/29/22 1446 SpO2 100 % 12/29/22 1446 BP Readings from Last 3 Encounters: 12/29/22 137/74 12/23/22 (!) 140/78 Labs: labs ordered per protocol Stanislav's Simple Cardiac Risk Index: STANISLAV'S SIMPLE CARDIAC RISK SCORE: 3 Interpretation: 0 Points Class I 0.5% 1 Point Class II 1.3% 2 Points Class III 3.6% 3+ Points Class IV 9.1% PAT Pain Score: 0/10 Postop Pain Management Plan (Pain consult ordered?): Pain consult not indicated at this time ? EKG: ordered today ECHO and EF: Imaging Left heart cath 12/19/22 Echocardiogram Complete 12/19/22 METS >4 Electronically signed by: Yolande Serra APRN - TRANSPORT MANAGER Date: 12/29/2022 at 2:58 PM [employer] Work Phone: 12-29-2022 History and physical note Images from the original note were not included. Comprehensive Pre Surgical History and Physical ? Name: Lacy Alvarado : 1950 (Age-72 y.o.) Date of Service: Pt seen/examined on 12/29/2022 Procedure Information Date/Time: 01/01/23 0730 Procedures: CABG AND SIS (Chest) Echocardiography transesophageal real-time Location: [facility] OR [address] [place] [address] Operating Room Surgeons: Uzair Rose MD Chief Complaint: Heart vessels are clogged up patient states ASSESSMENT/PLAN: Patient is considered high risk for this high risk procedure/surgery () with no reducible risk factors. Based on the above evaluation, the benefits of the planned procedure likely exceed the risks. The patient is medically optimized to proceed with the planned procedure without any further cardiopulmonary testing. 1) Atherosclerotic heart disease of [place] coronary artery without angina pectoris [I25.10] Pre-op diagnosis: Atherosclerotic heart disease of [place] coronary artery without angina pectoris [I25.10] - Managed per surgery 2) essential hypertension -imdur -coreg -cozaar 3) CHF -no signs of fluid retention. No lower leg edema ,no RALES -coreg -cozaar 4)LINA -cpap 5)diabetes type 2 -januvia 6)RA -plaquenil 7) GERD -protonix 8)seizures/epilepsy -seizure 3 months ago -Depakote pt states she is getting this level drawn this week by her PCP Visit Type: Pre-Admission Testing Visit Labs Ordered: YES - PER [facility] PROT[facility] Sleep Referral Ordered: NO - ALREADY DIAGNOSED WITH LINA AND COMPLIANT WITH CPAP Total time spent (which include face to face and non face to face encounters) : 30 minutes Toxic drug monitoring/narrow therapeutic index drug monitoring : # Drug name : Beck # Route administered : po # Method of monitoring : bmp. Glucose PAT Protocol referenced includes: 1. Anesthesia Lab Protocol Orders 2. Perioperative Cardiovascular Risk Assessment 3. Anesthesia Assessment 4. Pain Assessment and Acute Pain Service Consult (if appropriate) 5. Medical Clearance/Consult from Internal Medicine ([facility]) 6. Shower/Wash Order (for designated surgeries) 7. LINA Screen and Sleep Clinic Referral (if appropriate) History Of Present Illness: 72 y.o. female who we are asked to see/evaluate by [place] [id number] for pre-operative evaluation prior to . CABG AND SIS (Chest) [04486 CPT(R)] Echocardiography transesophageal real-time [97681 CPT(R)] Anesthesia type: General Reason for Visit: Multivessel coronary artery disease-evaluate for coronary bypass surgery Assessment and plan This is a 72-year-old female has new onset of angina and coronary artery disease involving the right coronary artery, left circumflex, and the LAD/diagonal distributions. Recommend coronary revascularization after the risk benefits and alternatives were discussed in great detail with the patient and her family. We will proceed on an elective basis. History of Present Illness Lacy Alvarado is a 72 y.o. female was referred to us by Dr. Bhanu Milian. Patient was admitted on 12/18/22 to [facility] with CP. Per notes, patient has a history of CHF, CAD, DM type 2, hyperlipidemia, epilepsy, HTN, RA, LINA, and prior PCI with stent of the left anterior descending artery. . Patient underwent a left heart catheterization that demonstrated: a high grade lesion in the circumflex artery. Patient also had an echo done which showed mild (1+) tricuspid valve insufficiency. Dr Rose office note 12/23/2022 ? Denies history of DC, TIA, CVA Past Medical History: Past Medical History: No date: CHF (congestive heart failure) ([facility]) ([facility]) No date: Diabetes mellitus ([facility]) No date: GERD (gastroesophageal reflux disease) No date: Hyperlipidemia No date: Hypertension No date: RA (rheumatoid arthritis) ([facility]) No date: Seizure ([facility]) Comment: last seizure 5 months ago nathaniel murray 08/24 No date: Seizures ([facility]) No date: Sleep apnea Past Surgical History: Past Surgical History: No date: CARDIAC CATHETERIZATION No date: COLONOSCOPY 03/22/2018: CORONARY STENT PLACEMENT No date: HYSTERECTOMY Medications Prior to Admission: Prior to Admission medications Medication Sig Start Date End Date Taking? Authorizing Provider aspirin 81 MG EC tablet Take 81 mg by mouth daily. Historical Provider, atorvastatin (Lipitor) 80 MG tablet Take 80 mg by mouth daily. Historical Provider, calcium citrate (Calcitrate) 950 (200 Ca) MG tablet Take 950 mg by mouth daily. Historical Provider, carvedilol (Coreg) 12.5 MG tablet Take by mouth 2 times daily (with meals). Historical Provider, chlorhexidine (Peridex) 0.12 % solution Use 15 mL in the mouth or throat Once for 1 dose. Swish for 30 seconds and spit out the night before surgery. Do not swallow. 12/24/22 12/24/22 Malik Tabares APRN - TRANSPORT MANAGER clopidogrel (Plavix) 75 MG tablet Take 75 mg by mouth daily. Historical Provider, divalproex (Depakote) 500 MG EC tablet Take 1,000 mg by mouth 2 times daily. Do not crush, chew, or split. Historical Provider, DULoxetine (Cymbalta) [address] capsule Take 30 mg by mouth daily. Do not crush or chew. Historical Provider, hydroxychloroquine (Plaquenil) 200 MG tablet Take 200 mg by mouth 2 times daily. Historical Provider, isosorbide mononitrate ER (Imdur) 60 MG 24 hr tablet Take 60 mg by mouth daily. Do not crush or chew. Historical Provider, losartan (Cozaar) 50 MG tablet Take 50 mg by mouth 2 times daily. Historical Provider, Multiple Vitamin (multivitamin) capsule Take 1 capsule by mouth daily. Historical Provider, mupirocin (Bactroban) 2 % ointment Apply liberal amount per nostril the night before surgery and then again the morning of surgery 12/24/22 Malik Tabares APRN - SERENA pantoprazole (ProtoNix) 40 MG EC tablet Take 40 mg by mouth every morning (before breakfast). Do not crush, chew, or split. Historical Provider, polyethylene glycol, PEG, 3350 (Miralax) 17 g packet Take 17 g by mouth daily. Historical Provider, SITagliptin (Januvia) 100 MG tablet Take 100 mg by mouth daily. Historical Provider, traMADol (Ultram) 50 MG tablet Take 50 mg by mouth. 11/28/21 Historical Provider, CHRONIC NARCOTIC USE: No Allergies: Prednisone If patient has opioid allergy, is it okay to take Acetaminophen: N/A Social History: TOBACCO: reports that she has never smoked. She has never used smokeless tobacco. ETOH: reports current alcohol use. Social History Substance and Sexual Activity Drug Use Never Family History: No family history on file. REVIEW OF SYSTEMS: Review of Systems Respiratory: Negative. Cardiovascular: Negative. Gastrointestinal: Negative. Genitourinary: Negative. Musculoskeletal: Negative. All other systems reviewed and are negative. Physical Exam: Physical Exam Vitals and nursing note reviewed. HENT: Head: Normocephalic. Nose: Nose normal. Mouth/Throat: Mouth: Mucous membranes are moist. Eyes: Pupils: Pupils are equal, round, and reactive to light. Cardiovascular: Rate and Rhythm: Normal rate and regular rhythm. Heart sounds: Normal heart sounds. Pulmonary: Effort: Pulmonary effort is normal. Breath sounds: Normal breath sounds. No decreased breath sounds, wheezing, rhonchi or rales. Abdominal: General: Bowel sounds are normal. There is no distension. Tenderness: There is no abdominal tenderness. Musculoskeletal: General: Normal range of motion. Right lower leg: No edema. Left lower leg: No edema. Skin: General: Skin is warm. Capillary Refill: Capillary refill takes less than 2 seconds. Neurological: General: No focal deficit present. Mental Status: She is alert. Psychiatric: Mood and Affect: Mood normal. Vitals: Vitals Value Taken Time BP 137/74 12/29/22 1446 Temp 36.2 C (97.2 F) 12/29/22 1446 Pulse 88 12/29/22 1446 Resp 16 12/29/22 1446 SpO2 100 % 12/29/22 1446 BP Readings from Last 3 Encounters: 12/29/22 137/74 12/23/22 (!) 140/78 Labs: labs ordered per protocol Stanislav's Simple Cardiac Risk Index: STANISLAV'S SIMPLE CARDIAC RISK SCORE: 3 Interpretation: 0 Points Class I 0.5% 1 Point Class II 1.3% 2 Points Class III 3.6% 3+ Points Class IV 9.1% PAT Pain Score: 0/10 Postop Pain Management Plan (Pain consult ordered?): Pain consult not indicated at this time ? EKG: ordered today ECHO and EF: Imaging Left heart cath 12/19/22 Echocardiogram Complete 12/19/22 METS >4 Electronically signed by: GORDO Larkin CNP Date: 12/29/2022 at 2:58 PM documented in this encounter [facility] 12-24-2022 Telephone encounter Note Surg proc orders placed, medications e-scribed - talked to patient, answered all questions. [facility] 12-24-2022 Miscellaneous Notes Surg proc orders placed, medications e-scribed - talked to patient, answered all questions. Prep for Procedure Order Request: 12/23/22 Surgeon: Dr. Rose Surgery/Procedure: CABG & SIS Plan Admit: Yes PAT Appointment: 12/26/22 at 1:00 PM Date if yes: Date of Surgery/Procedure: 01/01/23 at 7:30 AM Medication needed held: [] None [] Other: Medication needed prescribed: [] None [x] Nasal ointment and mouth rinse [] Other: documented in this encounter [facility] 12-23-2022 Note Prep for Procedure O rder Request: 12/23/22 Surgeon: Dr. Rose Surgery/Procedure: CABG & SIS Plan Admit: Yes PAT Appointment: 12/26/22 at 1:00 PM Date if yes: Date of Surgery/Procedure: 01/01/23 at 7:30 AM Medication needed held: [] None [] Other: Medication needed prescribed: [] None [x] Nasal ointment and mouth rinse [] Other: [facility] 12-23-2022 Telephone encounter Note Prep for Procedure Order Request: 12/23/22 Surgeon: Dr. Rose Surgery/Procedure: CABG & SIS Plan Admit: Yes PAT Appointment: 12/26/22 at 1:00 PM Date if yes: Date of Surgery/Procedure: 01/01/23 at 7:30 AM Medication needed held: [] None [] Other: Medication needed prescribed: [] None [x] Nasal ointment and mouth rinse [] Other: [facility] 12-23-2022 History of Presen t illness Narrative Images from the original note were not included. [facility] CARDIOVASCULAR [facility]ORACIC SURGERY [address] [facility] [address] Dept: [phone] Dept Loc: [phone] Visit type: New Reason for Visit: Multivessel coronary artery disease-evaluate for coronary bypass surgery Assessment and plan This is a 72-year-old female has new onset of angina and coronary artery disease involving the right coronary artery, left circumflex, and the LAD/diagonal distributions. Recommend coronary revascularization after the risk benefits and alternatives were discussed in great detail with the patient and her family. We will proceed on an elective basis. History of Present Illness Lacy Alvarado is a 72 y.o. female was referred to us by Dr. Bhanu Milian. Patient was admitted on 12/18/22 to [facility] with CP. Per notes, patient has a history of CHF, CAD, DM type 2, hyperlipidemia, epilepsy, HTN, RA, LINA, and prior PCI with stent of the left anterior descending artery. . Patient underwent a left heart catheterization that demonstrated: a high grade lesion in the circumflex artery. Patient also had an echo done which showed mild (1+) tricuspid valve insufficiency. Patient is here today for an evaluation. Past Medical History No past medical history on file. Past Surgical History No past surgical history on file. Family History No family history on file. Social History Allergies Allergies Allergen Reactions Prednisone Hives and Nausea And Vomiting Medications Current Outpatient Medications: traMADol (Ultram) 50 MG tablet, Take 50 mg by mouth., Disp: , Rfl: aspirin 81 MG EC tablet, Take 81 mg by mouth daily., Disp: , Rfl: atorvastatin (Lipitor) 80 MG tablet, Take 80 mg by mouth daily., Disp: , Rfl: calcium citrate (Calcitrate) 950 (200 Ca) MG tablet, Take 950 mg by mouth daily., Disp: , Rfl: carvedilol (Coreg) 12.5 MG tablet, Take by mouth 2 times daily (with meals)., Disp: , Rfl: clopidogrel (Plavix) 75 MG tablet, Take 75 mg by mouth daily., Disp: , Rfl: divalproex (Depakote) 500 MG EC tablet, Take 1,000 mg by mouth 2 times daily. Do not crush, chew, or split., Disp: , Rfl: DULoxetine (Cymbalta) [address] capsule, Take 30 mg by mouth daily. Do not crush or chew., Disp: , Rfl: hydroxychloroquine (Plaquenil) 200 MG tablet, Take 200 mg by mouth 2 times daily., Disp: , Rfl: isosorbide mononitrate ER (Imdur) 60 MG 24 hr tablet, Take 60 mg by mouth daily. Do not crush or chew., Disp: , Rfl: losartan (Cozaar) 50 MG tablet, Take 50 mg by mouth 2 times daily., Disp: , Rfl: Multiple Vitamin (multivitamin) capsule, Take 1 capsule by mouth daily., Disp: , Rfl: pantoprazole (ProtoNix) 40 MG EC tablet, Take 40 mg by mouth every morning (before breakfast). Do not crush, chew, or split., Disp: , Rfl: polyethylene glycol, PEG, 3350 (Miralax) 17 g packet, Take 17 g by mouth daily., Disp: , Rfl: SITagliptin (Januvia) 100 MG tablet, Take 100 mg by mouth daily., Disp: , Rfl: Review of Systems Review of Systems Respiratory: Positive for shortness of breath. Cardiovascular: Positive for chest pain (yesterday while resting. went away). All other systems reviewed and are negative. Physical Exam Vitals: There were no vitals taken for this visit. Constitutional: General: Not in acute distress. Appearance: Normal appearance. Not toxic-appearing. Ear, nose, mouth: Bilateral external ear and nose normal. Nose: Nose normal. Mouth: Appearance normal, no bleeding, moist mucus membranes Eyes: General: No scleral icterus. No discharge from bilateral eyes Extraocular Movements: Extraocular movements intact. Pupils equal and reactive bilaterally Cardiovascular: Heart: Regular rhythm. Normal heart sounds. Vascular: No carotid bruit. Edema: no edema in bilateral lower extremities Pulmonary: Effort: Pulmonary effort is normal. No respiratory distress. Breath sounds: Normal breath sounds. No wheezing. Chest wall: No tenderness. Abdominal: Appearance: Not distended Palpations: There is no abdominal tenderness, no guarding. Musculoskeletal: Bilateral upper and lower extremities: Normal range of motion, no deformity Head: Normocephalic and atraumatic. Neck: Normal range of motion and neck supple. No muscular tenderness. Lymphadenopathy: Cervical: No cervical adenopathy. Skin: General: Skin is warm and dry. Coloration: Skin is not jaundiced. Neurological: General: No focal deficit present. Cranial Nerves: No obvious cranial nerve deficit. Psychiatric: Mood and Affect: Mood normal. Thought Content: Thought content normal. Patient has good judgement and insight Mental Status: Alert and oriented to place, person, and time. Labs No results found for: WBC, HGB, PLT, NA, K, CREATININE Imaging Left heart cath 12/19/22 Echocardiogram Complete 12/19/22 Chest Xray 12/18/22 Cardiac Cath Diagnostic 09/20/2018 CT Abdomen without Contrast 12/16/22 Cardiac Cath Diagnostic with PTCA 03/22/2018 Patient Care Team: PCP: Dr. Mayda Garcia MD Cardiology: Dr. Bhanu Milian MD Cardiology: Dr. Winston Johnson MD Disclaimer INFORMED CONSENT:The nature and purpose of the proposed treatment or procedure have been discussed. The risks and benefits of the proposed treatment or procedures have been reviewed. Alternatives have been reviewed in addition to the risks and benefits of not receiving treatments or undergoing procedures. Pursuant to this discussion, the patient agrees to undergo the proposed treatment or procedure. Captured images seen in this note from are not a substitute for a comprehensive interpretation of the entire data set as reflected by the interpreting physician with regard to radiology, echocardiography, and other diagnostic images. This note may have been dictated using [employer] Practice Edition 2.6 and/or [employer] Voice Recognition Feature. The document was proofread, however unrecognized voice recognition worm grower errors may be present. documented in this encounter [facility] 12-23-2022 History of Presen t illness Narrative Images from the original note were not included. [facility]ARDIOVASCULAR [facility] THORACIC SURGERY [address] [facility] [address] Dept: [phone] Dept Loc: [phone] Visit type: New Reason for Visit: Multivessel coronary artery disease-evaluate for coronary bypass surgery Assessment and plan This is a 72-year-old female has new onset of angina and coronary artery disease involving the right coronary artery, left circumflex, and the LAD/diagonal distributions. Recommend coronary revascularization after the risk benefits and alternatives were discussed in great detail with the patient and her family. We will proceed on an elective basis. History of Present Illness Lacy Alvarado is a 72 y.o. female was referred to us by Dr. Bhanu Milian. Patient was admitted on 12/18/22 to [facility] with CP. Per notes, patient has a history of CHF, CAD, DM type 2, hyperlipidemia, epilepsy, HTN, RA, LINA, and prior PCI with stent of the left anterior descending artery. . Patient underwent a left heart catheterization that demonstrated: a high grade lesion in the circumflex artery. Patient also had an echo done which showed mild (1+) tricuspid valve insufficiency. Patient is here today for an evaluation. Past Medical History No past medical history on file. Past Surgical History No past surgical history on file. Family History No family history on file. Social History Allergies Allergies Allergen Reactions Prednisone Hives and Nausea And Vomiting Medications Current Outpatient Medications: traMADol (Ultram) 50 MG tablet, Take 50 mg by mouth., Disp: , Rfl: aspirin 81 MG EC tablet, Take 81 mg by mouth daily., Disp: , Rfl: atorvastatin (Lipitor) 80 MG tablet, Take 80 mg by mouth daily., Disp: , Rfl: calcium citrate (Calcitrate) 950 (200 Ca) MG tablet, Take 950 mg by mouth daily., Disp: , Rfl: carvedilol (Coreg) 12.5 MG tablet, Take by mouth 2 times daily (with meals)., Disp: , Rfl: clopidogrel (Plavix) 75 MG tablet, Take 75 mg by mouth daily., Disp: , Rfl: divalproex (Depakote) 500 MG EC tablet, Take 1,000 mg by mouth 2 times daily. Do not crush, chew, or split., Disp: , Rfl: DULoxetine (Cymbalta) [address] capsule, Take 30 mg by mouth daily. Do not crush or chew., Disp: , Rfl: hydroxychloroquine (Plaquenil) 200 MG tablet, Take 200 mg by mouth 2 times daily., Disp: , Rfl: isosorbide mononitrate ER (Imdur) 60 MG 24 hr tablet, Take 60 mg by mouth daily. Do not crush or chew., Disp: , Rfl: losartan (Cozaar) 50 MG tablet, Take 50 mg by mouth 2 times daily., Disp: , Rfl: Multiple Vitamin (multivitamin) capsule, Take 1 capsule by mouth daily., Disp: , Rfl: pantoprazole (ProtoNix) 40 MG EC tablet, Take 40 mg by mouth every morning (before breakfast). Do not crush, chew, or split., Disp: , Rfl: polyethylene glycol, PEG, 3350 (Miralax) 17 g packet, Take 17 g by mouth daily., Disp: , Rfl: SITagliptin (Januvia) 100 MG tablet, Take 100 mg by mouth daily., Disp: , Rfl: Review of Systems Review of Systems Respiratory: Positive for shortness of breath. Cardiovascular: Positive for chest pain (yesterday while resting. went away). All other systems reviewed and are negative. Physical Exam Vitals: There were no vitals taken for this visit. Constitutional: General: Not in acute distress. Appearance: Normal appearance. Not toxic-appearing. Ear, nose, mouth: Bilateral external ear and nose normal. Nose: Nose normal. Mouth: Appearance normal, no bleeding, moist mucus membranes Eyes: General: No scleral icterus. No discharge from bilateral eyes Extraocular Movements: Extraocular movements intact. Pupils equal and reactive bilaterally Cardiovascular: Heart: Regular rhythm. Normal heart sounds. Vascular: No carotid bruit. Edema: no edema in bilateral lower extremities Pulmonary: Effort: Pulmonary effort is normal. No respiratory distress. Breath sounds: Normal breath sounds. No wheezing. Chest wall: No tenderness. Abdominal: Appearance: Not distended Palpations: There is no abdominal tenderness, no guarding. Musculoskeletal: Bilateral upper and lower extremities: Normal range of motion, no deformity Head: Normocephalic and atraumatic. Neck: Normal range of motion and neck supple. No muscular tenderness. Lymphadenopathy: Cervical: No cervical adenopathy. Skin: General: Skin is warm and dry. Coloration: Skin is not jaundiced. Neurological: General: No focal deficit present. Cranial Nerves: No obvious cranial nerve deficit. Psychiatric: Mood and Affect: Mood normal. Thought Content: Thought content normal. Patient has good judgement and insight Mental Status: Alert and oriented to place, person, and time. Labs No results found for: WBC, HGB, PLT, NA, K, CREATININE Imaging Left heart cath 12/19/22 Echocardiogram Complete 12/19/22 Chest Xray 12/18/22 Cardiac Cath Diagnostic 09/20/2018 CT Abdomen without Contrast 12/16/22 Cardiac Cath Diagnostic with PTCA 03/22/2018 Patient Care Team: PCP: Dr. Mayda Garcia MD Cardiology: Dr. Bhanu Milian MD Cardiology: Dr. Winston Johnson MD Disclaimer INFORMED CONSENT:The nature and purpose of the proposed treatment or procedure have been discussed. The risks and benefits of the proposed treatment or procedures have been reviewed. Alternatives have been reviewed in addition to the risks and benefits of not receiving treatments or undergoing procedures. Pursuant to this discussion, the patient agrees to undergo the proposed treatment or procedure. Captured images seen in this note from are not a substitute for a comprehensive interpretation of the entire data set as reflected by the interpreting physician with regard to radiology, echocardiography, and other diagnostic images. This note may have been dictated using [employer] Edition 2.6 and/or [employer] Voice Recognition Feature. The document was proofread, however unrecognized voice recognition worm grower errors may be present. documented in this encounter [facility] documented in this encounter [facility]* Diagnosis CAD in [place] artery- Primary Preoperative clearance Unspecified pre-operative examination Atherosclerotic heart disease of [place] coronary artery without angina pectoris documented in this encounter [facility]* Diagnosis Preoperative clearance Unspecified pre-operative examination Atherosclerotic heart disease of [place] coronary artery without angina pectoris [facility] Diagnosis Coronary artery disease due to calcified coronary lesion- Primary documented in this encounter [facility]* Diagnosis CAD in [place] artery- Primary CAD in [place] artery Coronary artery disease involving coronary bypass graft, unspecified whether angina present, unspecified whether [place] or transplanted heart S/P CABG (coronary artery bypass graft) Postsurgical aortocoronary bypass status documented in this encounter [facility]* Diagnosis S/P CABG (coronary artery bypass graft)- Primary Postsurgical aortocoronary bypass status documented in this encounter [facility] Summary Purpose Family History No Family History Records FoundNo Family History Records FoundNo Family History Records FoundNo Family History Records Found Advance Directives Latest Code Status on File Code Status Date Activated Date Inactivated Comments Full Code 01/01/2023 5:45 AM Latest Code Status on File Code Status Date Activated Date Inactivated Comments Full Code 01/01/2023 5:45 AM 01/11/2023 4:53 PM Healthcare Agents on File Name Relationship Healthcare Agent Relationshi p Communication [facility] Care Agent Documents on File Type Date Recorded Patient Auriculotherapist Expl anation Advance Directives and Livin g Will 01/12/2023 1:40 PM Latest Code Status on File Code Status Date Activated Date Inactivated Comments Full Code 01/01/2023 5:45 AM 01/11/2023 4:53 PM Healthcare Agents on File Name Relationship Healthcare Agent Relationshi p Communication Amie Ascencio [facility] Care Agent Reason for Referral Specialty Diagnoses / Procedures Referred By Contac t Referred To Contact Diagnoses S/P CABG (coronary artery bypass graft) Malik Tabares, GORDO - TRANSPORT MANAGER [address] [place] [address] [address] [place] [address] Referral ID Status Reason Start Date Expiration Date Visits Re quested Visits Authorized [id number] Closed 1 1 Additional Source Comments INFORMATION SOURCE (unrecogn ized section and content) DATE CREATED AUTHOR AUTHOR'S ORGANIZ ATION 10/27/2017 [facility] DATE CREATED AUTHOR AUTHOR'S ORGANIZ ATION 06/21/2018 [facility] DATE CREATED AUTHOR AUTHOR'S ORGANIZ ATION 01/07/2023 [facility] Reason for Visit (unrecogniz ed section and content) Reason Onset Date Comments Surgery Scheduling 12/23/2022 Specialty Diagnoses / Procedures Referred By Contac t Referred To Contact Diagnoses Atherosclerotic heart disease of [place] coronary artery without angina pectoris Atherosclerotic heart disease of [place] coronary artery without angina pectoris [I25.10] Procedures VA CABG W/ARTERIAL GRAFT THREE ARTERIAL GRAFTS VA ECHO TRANSESOPHAG R-T 2D W/PRB IMG ACQUISJ I&R CABG AND SIS Echocardiography transesophageal real-time Uzair Rose MD [address] [place] [address], [address] [place] [id number] [address] [place] [address] Referral ID Status Reason Start Date Expiration Date Visits Re quested Visits Authorized [id number] 1 1 Reason Comments Post-op Care Teams (unrecognized sec tion and content) Nuclear Supervising Operator Relationship Specialty Start Date End Date Mayda Garcia [address] [place] [id number] PCP - General Internal Medicine 12/23/22 Nuclear Supervising Operator Relationship Specialty Start Date End Date Mayda Garcia [address] [place] [id number] PCP - General Internal Medicine 12/23/22 Nuclear Supervising Operator Relationship Specialty Start Date End Date Mayda Garcia [address] [place] [address] PCP - General Internal Medicine 12/23/22 Nuclear Supervising Operator Relationship Specialty Start Date End Date Mayda Garcia [address] [place] [address] PCP - General Internal Medicine 12/23/22 Nuclear Supervising Operator Relationship Specialty Start Date End Date Mayda Garcia [address] [place] [address] PCP - General Internal Medicine 12/23/22 Nuclear Supervising Operator Relationship Specialty Start Date End Date Mayda Garcia [address] [place] [address] PCP - General Internal Medicine 12/23/22 Scheduled Active and Recently Administ ered Medications (unrecognized section and content) PRN Medication Order 01/09/2023 01/10/2023 01/11/2023 calcium gluconate 2000 mg in 100 mL IVPB premix 2,000 mg, IntraVENous, at 50 mL/hr, Administer over 2 Hours, PRN, ionized calcium less than 4.3, Starting on Maria Alejandra 01/01/23 at 1117, Recovery & On Unit, Give 2000 mg for ionized calcium less than 4.3 premix bag dextrose 5 % infusion 100 mL/hr, IntraVENous, PRN, Blood sugar less than 70mg/dL, Starting on Maria Alejandra 01/01/23 at 1117, Recovery & On Unit, Start infusion following administration of dextrose 50% or glucagon. dextrose 50 % solution 12.5 g 12.5 g, IntraVENous, PRN, low blood sugar, Blood glucose less than 70 mg/dL and patient NOT ALERT or NPO., Starting on Maria Alejandra 01/01/23 at 1117, Recovery & On Unit, If patient does not respond within 5 minutes, repeat dose x1. Start D5W at 100 mL/hour until ordering provider can be reached. Repeat blood glucose in 15 minutes. If blood glucose is less than 70 mg/dL, repeat treatment and recheck blood glucose in 15 minutes x2. If using Glucostabilizer, dose as instructed per system. glucagon (human recombinant) injection 1 mg 1 mg, IntraMUSCular, PRN, low blood sugar, Blood glucose less than 70 mg/dL and patient NOT ALERT or NPO and does not have IV access., Starting on Maria Alejandra 01/01/23 at 1117, Recovery & On Unit, After administration, attempt intravenous access and start D5W at 100 mL/hr. Repeat blood glucose in 15 minutes x2 and notify provider. glucose oral gel 15 g 15 g, Oral, As needed, low blood sugar, Starting on Maria Alejandra 01/01/23 at 1117, Recovery & On Unit, If blood glucose less than 50 mg/dL and patient ALERT and NOT NPO, give 2 tubes glucose gel. If blood glucose less than 70 mg/dL and patient ALERT and NOT NPO, give 1 tube glucose gel. Repeat blood glucose in 15 minutes. If blood glucose is less than 70 mg/dL, repeat treatment and recheck blood glucose in 15 minutes x2 and notify provider. ipratropium-albuterol (Duo-Neb) 0.5-2.5 mg/3 mL nebulizer solution 3 mL 3 mL, Nebulization, 3 times daily PRN, wheezing, shortness of breath, Starting on Maria Alejandra 01/01/23 at 1117, Recovery & On Unit magnesium sulfate IVPB 4,000 mg(Linked Group 1) 4,000 mg, IntraVENous, at 25 mL/hr, Administer over 4 Hours, As needed, Per Magnesium Replacement Protocol, Starting on Maria Alejandra 01/01/23 at 1117, Recovery & On Unit, Mg Lab Replacement Action 1.4-1.6 2 gram IVPB x 1 doses 1.0-1.3 4 gram IVPB x 1 doses Less than 1.0 CALL PHYSICIAN and 4 gram IVPB x 1 doses Infuse at 1 gram/hr. Repeat Mag level next AM. Not for use in Patients with CrCl less than 30 mL/min. magnesium sulfate IVPB premix 2,000 mg(Linked Group 1) 2,000 mg, IntraVENous, at 25 mL/hr, Administer over 2 Hours, As needed, Per Magnesium Replacement Protocol, Starting on Maria Alejandra 01/01/23 at 1117, Recovery & On Unit, Mg Lab Replacement Action 1.4-1.6 2 gram IVPB x 1 doses 1.0-1.3 4 gram IVPB x 1 doses Less than 1.0 CALL PHYSICIAN and 4 gram IVPB x 1 doses Infuse at 1 gram/hr. Repeat Mag level next AM. Not for use in Patients with CrCl less than 30 mL/min. ondansetron (Zofran) injection 4 mg(Linked Group 2) 4 mg, IntraVENous, Every 6 hours PRN, nausea, vomiting, Starting on Maria Alejandra 01/01/23 at 1117, Recovery & On Unit, 1st Line. Give IV if patient is unable to take orally. If inadequate response within 60 minutes, proceed to next-line agent or contact provider if no further options ordered. ondansetron ODT (Zofran-ODT) disintegrating tablet 4 mg(Linked Group 2) 4 mg, Oral, Every 8 hours PRN, nausea, vomiting, Starting on Maria Alejandra 01/01/23 at 1117, Recovery & On Unit, 1st Line. If inadequate response within 60 minutes, proceed to next-line agent or contact provider if no further options ordered. Patient should allow tablet to dissolve on tongue. Do not remove from blister pack until just before administering. oxyCODONE (Roxicodone) immediate release tablet 5 mg 5 mg, Oral, Every 6 hours PRN, moderate pain (4-6), Starting on Maria Alejandra 01/01/23 at 1117, Recovery & On Unit potassium chloride 20 mEq in sodium chloride 0.9 % 250 mL IVPB(Linked Group 3) 20 mEq, IntraVENous, at 130 mL/hr, Administer over 2 Hours, PRN, Per IV Potassium Replacement Protocol, Starting on Maria Alejandra 01/01/23 at 1117, Recovery & On Unit, For Peripheral Line Use K Lab Replacement Action 3.1-3.5 20 mEq IVPB x 1 doses 2.7-3.0 40 mEq IVPB x 1 doses less than 2.7 CALL PROVIDER and administer 40 mEq IVPB x 1 dose Infuse at 10 mEq/hr Repeat Potassium lab 1 hour after administration. Protocol not for use in Patients with CrCl less than 30mL/min potassium chloride 40 mEq in sodium chloride 0.9 % 500 mL IVPB(Linked Group 3) 40 mEq, IntraVENous, at 130 mL/hr, Administer over 4 Hours, PRN, Per IV Potassium Replacement Protocol, Starting on Thu01/01/23 at 1117, Recovery & On Unit, For Peripheral Line Use. K Lab Replacement Action 3.1-3.5 20 mEq IVPB x 1 doses 2.7-3.0 40 mEq IVPB x 1 doses less than 2.7 CALL PROVIDER and administer 40 mEq IVPB x 1 dose Infuse at 10 mEq/hr Repeat Potassium lab 1 hour after administration. Protocol not for use in Patients with CrCl less than 30mL/min potassium chloride CR (Klor-Con M10) ER tablet 20 mEq 20 mEq, Oral, PRN, Hypokalemia, Starting on Thu01/02/23 at 0000, Phase II/On Unit, If patient is intubated or not tolerating PO use PRN IV replacement protocol Potassium level Dose LESS than 3.0 = Give 20 mEq x 3 doses 3.0-3.6 = Give 20 mEq x 2 doses Recheck potassium level 2 hour after replacement given, place order for lab under [place] If potassium level LESS than 3 after 1st replacement: Call surgeon. Do not crush or break. Do not crush or chew. potassium chloride IVPB 20 mEq(Linked Group 3) 20 mEq, IntraVENous, at 50 mL/hr, Administer over 1 Hours, PRN, Per IV Potassium Replacement Protocol, Starting on Maria Alejandra 01/01/23 at 1117, Recovery & On Unit, For Central Line Use Only K Lab Replacement Action 3.1-3.5 20 mEq IVPB x 1 doses 2.7-3.0 20 mEq IVPB x 2 doses (40 mEq Total) less than 2.7 CALL PROVIDER and administer 20 mEq IVPB x 2 doses (40 mEq Total) Infuse at 20 mEq/hr Repeat Potassium lab 1 hour after final administration. Protocol not for use in Patients with CrCl less than 30mL/min For central line administration only. sodium chloride 0.9 % infusion 250 mL/hr, IntraVENous, Administer over 10 Minutes, As needed, For use in priming line prior to transfusion (prime via gravity) and flush line post transfusion, Starting on Maria Alejandra 01/01/23 at 1301, For 1 dose, For use in priming line prior to transfusion (prime via gravity) and flush line post transfusion ONLY. Discontinue once line has been cleared of remaining blood product. Linked Groups Order Group 1: magnesium sulfate IVPB premix 2,000 mgJump to med 2,000 mg, IntraVENous, at 25 mL/hr, Administer over 2 Hours, As needed, Per Magnesium Replacement Protocol, Starting on Maria Alejandra 01/01/23 at 1117, Recovery & On Unit
Mg Lab Replacement Action 1.4-1.6 2 gram IVPB x 1 doses 1.0-1.3 4 gram IVPB x 1 doses Less than 1.0 CALL PHYSICIAN and 4 gram IVPB x 1 doses Infuse at 1 gram/hr. Repeat Mag level next AM. Not for use in Patients with CrCl less than 30 mL/min.
Or magnesium sulfate IVPB 4,000 mgJump to med 4,000 mg, IntraVENous, at 25 mL/hr, Administer over 4 Hours, As needed, Per Magnesium Replacement Protocol, Starting on Maria Alejandra 01/01/23 at 1117, Recovery & On Unit
Mg Lab Replacement Action 1.4-1.6 2 gram IVPB x 1 doses 1.0-1.3 4 gram IVPB x 1 doses Less than 1.0 CALL PHYSICIAN and 4 gram IVPB x 1 doses Infuse at 1 gram/hr. Repeat Mag level next AM. Not for use in Patients with CrCl less than 30 mL/min.
Group 2: ondansetron ODT (Zofran-ODT) disintegrating tablet 4 mgJump to med 4 mg, Oral, Every 8 hours PRN, nausea, vomiting, Starting on Maria Alejandra 01/01/23 at 1117, Recovery & On Unit
1st Line. If inadequate response within 60 minutes, proceed to next-line agent or contact provider if no further options ordered. Patient should allow tablet to dissolve on tongue. Do not remove from blister pack until just before administering.
Or ondansetron (Zofran) injection 4 mgJump to med 4 mg, IntraVENous, Every 6 hours PRN, nausea, vomiting, Starting on Maria Alejandra 01/01/23 at 1117, Recovery & On Unit
1st Line. Give IV if patient is unable to take orally. If inadequate response within 60 minutes, proceed to next-line agent or contact provider if no further options ordered.
Group 3: potassium chloride IVPB 20 mEqJump to med 20 mEq, IntraVENous, at 50 mL/hr, Administer over 1 Hours, PRN, Per IV Potassium Replacement Protocol, Starting on Maria Alejandra 01/01/23 at 1117, Recovery & On Unit
For Central Line Use Only K Lab Replacement Action 3.1-3.5 20 mEq IVPB x 1 doses &n bsp;& nbsp; 2.7-3.0 20 mEq IVPB x 2 doses &n bsp;& nbsp; (40 mEq Total) less than 2.7 CALL PROVIDER and administer &nbsp ; 20 mEq IVPB x 2 doses &n bsp;& nbsp; (40 mEq Total) Infuse at 20 mEq/hr Repeat Potassium lab 1 hour after final administration. Protocol not for use in Patients with CrCl less than 30mL/min For central line administration only.
Or potassium chloride 20 mEq in sodium chloride 0.9 % 250 mL IVPBJump to med 20 mEq, IntraVENous, at 130 mL/hr, Administer over 2 Hours, PRN, Per IV Potassium Replacement Protocol, Starting on Maria Alejandra 01/01/23 at 1117, Recovery & On Unit
For Peripheral Line Use K Lab Replacement Action 3.1-3.5 20 mEq IVPB x 1 doses &n bsp;& nbsp; 2.7-3.0 40 mEq IVPB x 1 doses &n bsp;& nbsp; less than 2.7 CALL PROVIDER and administer &nbs p;&nb sp; 40 mEq IVPB x 1 dose Infuse at 10 mEq/hr Repeat Potassium lab 1 hour after administration. Protocol not for use in Patients with CrCl less than 30mL/min
Or potassium chloride 40 mEq in sodium chloride 0.9 % 500 mL IVPBJump to med 40 mEq, IntraVENous, at 130 mL/hr, Administer over 4 Hours, PRN, Per IV Potassium Replacement Protocol, Starting on Maria Alejandra 01/01/23 at 1117, Recovery & On Unit
For Peripheral Line Use. K Lab Replacement Action 3.1-3.5 20 mEq IVPB x 1 doses &n bsp;& nbsp; 2.7-3.0 40 mEq IVPB x 1 doses &n bsp;& nbsp; less than 2.7 CALL PROVIDER and administer &nbs p;&nb sp; 40 mEq IVPB x 1 dose Infuse at 10 mEq/hr Repeat Potassium lab 1 hour after administration. Protocol not for use in Patients with CrCl less than 30mL/min
FOR RECORDS PERTAINING TO PATIENTS WHO ARE OR HAVE BEEN ENROLLED IN A CHEMICAL DEPENDENCY/SUBSTANCEABUSE PROGRAM, SOME INFORMATION MAY BE OMITTED. This clinical summary was aggregated from multiple sources. Caution should be exercised in using it in the provision of clinical care. This summary normalizes information from multiple sources, and as a consequence, information in this document may materially change the coding, format and clinical context of patient data. In addition, data may be omitted in some cases. CLINICAL DECISIONS SHOULD BE BASED ON THE PRIMARY CLINICAL RECORDS. [facility] [employer] [facility] provides no warranty or guarantee of the accuracy or completeness of information in this document.
== END | disposition home or self-care (01) ==
LOC: SL 20:08
PROVIDERS: PCP Internal Medicine; Referring Provider Nurse Practitioner Acute Care; Visit Provider Nurse Practitioner Acute Care
DX: G47.33 Obstructive sleep apnea (adult) (pediatric) (principal)
CPT/HCPCS: 95811

== ENCOUNTER 2023-07-01 08:00 | Outpatient (RCR) | payer MEDICARE, SELFPAY ==
[2023-06-01 10:29] VITALS: BMI 29.8
--- NOTE | 2023-07-01 09:02 | CR.ITP_ITS ---
Exercise - Initial Assessment Visit Session #:: 11 Nutrition - Initial Assessment Weight Mgt (Other Care) Height: 5 ft 2 in Weight:: 163 lb BMI: 29.8 Psychosocial - Initial Assess Target Goals Target Goals Patient Health Questionnaire PHQ-9 Screening 30-Day Re-eval Assessment: 1. Little interest or pleasure in doing things: More than half the days 2. Feeling down, depressed, or hopeless: Not at all 3. Trouble falling or staying asleep, or sleeping too much: Nearly every day 4. Feeling tired or having little energy: More than half the days 5. Poor appetite or overeating: Nearly every day 6. Feeling bad about yourself -- or that you are a failure or have let yourself or your family down: Not at all 7. Trouble concentrating on things, such as reading the newspaper or watching television: Not at all 8. Moving or speaking so slowly that other people could have noticed. Or the opposite - being so fidgety or restless that you have been moving around a lot more than usual: Not at all 9. Thoughts that you would be better off , or of hurting yourself in some way: Not at all How difficult have these problems made it for you to do your work, take care of things at home, or get along with other people?: Somewhat difficult Total Score: 10 Self-Efficacy 6-Item Scale 30-Day Re-eval Assessment: We would like to know how confident you are in doing certain activities. Please select your confidence level for: Fatigue Select Number: 4 Physical Discomfort or Pain Select Number: 4 Emotional Distress Select Number: 6 Other Symptoms or Health Problems Select Number: 6 Different Tasks and Activities Select Number: 10 Medication Select Number: 7 Total Score:: 6 Nutrition Survey Nutrition Survey Instructions Scoring Instructions Exercise - 30-day Assessment Visit Date of Eval: 07/01/23 Session #:: 11 Physician Prescribed Exercise Modalities: Treadmill, Airdyne and NuStep Frequency: 3x/week for 12 weeks [36 sessions] Intensity: 60-80% of age predicted maximum heart rate reserve Duration: 30 - 45 minutes Current METSs:: 3.7 Target Heart Rate:: 90-105 Current RPE:: 9-12 Maximum Excercise HR:: 122 Resting Blood Pressure: 120/70 Maximum Exercise Blood Pressure: 140/78 EKG Type: NSR to ST with rare/occas PVC Outcomes & Goals Goals:: Verbalizes understanding of THR, RPE & goal METS by session 6, Documents in home exercise log/reports 30 min aerobic 5 day/wk by DC, Demonstrates accurate pulse taking by DC and Other additional outcome/goals: see below Intervention & Plan Exercise Program Goals: Instruct on personal THR & RPE, Instruct on MET level & personal MET goal, Show patient to take own pulse /validate performance until accurate, Instruct on home exercise and Other additional plan/int 30-day Reassessments 30 day Reassessments:: Progressing Reassessment Notes & Comments:: RPE explained Physical Activity Home Exercise Physical Activity - Home Exercise: Safe Exercise, Warm-up, Self-monitoring, Cool-Down, Home Exercise > 30 min Daily and Sitting Time <3 hours/daily Outcomes & Goals Outcomes/Goals: Demonstrates correct Warm-up/exercise Cool-Down (S3) if = 2.5 METs, Verbalizes symptoms of exercise intolerance by Session 3 (S3), Demonstrate safe equipment use (S3) & follows exercise prescrition (6) and Other: See below Intervention & Plan Plan/Intervention: Instruct warm-up & cool-down if exercising at > 2 METs, Instruct on symptoms of exercise intolerance & actions to take, Instruct & monitor on saf, Assess intial functional capacity & safety risk and Other See below 30-day Reassessments 30 day Reassessments:: Progressing Reassessment Notes & Comments:: warm up encouraged Nutrition - 30-Day Assessment Program Goals Nutrition Program Goals Patient has diagnosis of Hyperlipidemia (ICD E78)?: Yes Visit Date of Eval: 07/01/23 Session #:: 11 Cholesterol/Lipids (Other Core Measures) Determine presence & major risk factors that modify LDL goal: Hypertension or hypertensive medication, Low HDL cholesterol <40 mg/dL*, Family history of premature CHD in Male < 55 years: female <65 yearsFa and Age men > 45 years; women >/= 55 years Outcomes/Goals: Pt IDs own risk factors & lifestyle modifications by Session 10, Verbalizes symptoms of angina & response by session 3., Pt independently manages and Other Additional Outcomes/Goals: Intervention/Plan: Advocate for lipid panel cholesterol medication if applicable, Instruct on personal lipid levels & lipid goals/NCEP guidelines, Instruct on cholesterol and Other additional plan/int Referral to dietitian:: No 30-day Reassessments:: Progressing Reassessment Notes & Comments:: pt to attend nutrition class Diabetes (Other Core Measures) Diabetes Type: Diagnosis Type II ICD-10 E11 Insulin dependent injection/pump?: No Non-Insulin Dependent?: Yes Do you monitor your blood sugar at home?: Yes Referral to Diabetic Clinic:: Yes Outcomes/Goals:: Able to state symptoms of, Able to state, Able to state and Other additional Intervention/Plan:: Instruct on, Refer to, Instruct on and Other 30-day Reassessments:: Progressing Reassessment Notes & Comments:: pt to attend nutrition class Weight Mgt (Other Care) Height: 5 ft 2 in Weight:: 163 lb BMI: 29.8 Diagnosis Overweight/Obesity BMI> 30% ICD-10 E66: No Diagnosis High BMI/Morbid Obesity BMI> 35% ICD-10 Z68: No Outcomes/Goals: Pt sets, maintains & shows weight loss goal & trend during rehab and Other additional outcomes/goals Intervention/Plan: Instruct on ideal BMI & set weight loss goal w/patient, Assist pt to ID & incorporate diet changes for weight loss by S9, Refer to Structured Weight Loss program as appropriate, Encourage goal of using 250- 300dcal per session for weight loss and Other additional plan/interventions 30 day Reassessments:: Progressing Reassessment Notes & Comments:: pt to attend nutrition class Healthy Eating Habits Will attend diet classes:: Yes Outcomes/Goals:: Consume diet rich in vegs,fruits,whole grain/high fiber,fish,lean meat, Limit sat/trans fats,cholesterol & added salts & sugars and Other additional outcome/goals: Intervention/Plan:: Assess current eating habits and Other Additional plan/interventions 30-day Reassessments:: Progressing Reassessment Notes & Comments:: pt to attend nutrition class Education Gave educational materials for:: Signs & symptoms of hypoglycemia, Signs & symptoms of hyperglycemia, Relate diabetes to coronary artery disease and Healthy eating Nutrition - 60-Day Assessment Weight Mgt (Other Care) Height: 5 ft 2 in Weight:: 163 lb BMI: 29.8 Core - 30-Day Assessment Visit Date of Eval: 07/01/23 Session #:: 11 Medication Compliance Preventative Medication(s):: Aspirin, Clopidogrel/P2Y12 inhibit, Statin/lipid and Beta teri H/O mental health issues: depression, anxiety, or addiction?: No Doesn?t believe in the benefits of treatment?: No Believes medications are unnecessary or harmful?: No Has a concern about medication side effects?: No Expresses concern over the cost of medications?: No Outcomes/Goals: Verbalizes medications,desired effect & common side effects @ DC, Pt self-reports following medication regimen, Keeps card in wallet w/medications listed by DC and Other additional outcome/goals: Interventions/plans: Instruct on medication effects & side effects, Review medication list w/patient every two weeks, Instruct importance of taking meds as ordered & assist problem solving and Other additional 30-day Reassessments:: Progressing Reassessment Notes & Comments:: pt encouraged to take her meds Tobacco Use Tobacco Use: Non-smoker Hypertension Hypertension Diagnosis:: Hypertension ICD-10 I10 Resting Blood Pressure:: 120/70 [place] [employer] Hypertension Guidelines Peak Exercise Blood Pressure:: 140/78 Outcomes/Goals: Able to verbalize/achieve optimal blood pressure <130/80, Incorporates diet changes & exercise for blood pressure control by DC and Other additional outcomes/goals Interventions/plan: Instruct on optimal blood pressure, hypertension & medications, Instruct on effects of sodium, alcohol, stress, exercise &hypertension and Other additional plan/interventions 30 day Reassessments:: Progressing Reassessment Notes & Comments:: pt encouraged to take her meds Tobacco Cessation Referral Smoking Cessation Referral:: No Individual Education/Counseling:: No Education Schedule Given:: Yes Psychosocial - 30-Day Assess VIsit Date of Eval: 07/01/23 Session #:: 11 History of previous Mental disease:: No Target Goals Target Goals Outcomes/Goals: See list Psychosocial Outcomes/Goals:: ID's personal stressors & 2 strategies to manage stress by discharge and Other Additional outcome/goals: Intervention/Plan: See List Interventions/Plan:: Assess stressors,coping strategies & signs of derpression on admission, Instruct/assist pt to develop coping & personal stress Mgt strategies, Refer to Behavioral Health if appropriate, Refer to Physician if appropriate, Instruct patient to recognize signs & symptoms of depression, Instruct patient to recog and Other additional plan/intervention 30-day Reassessments: 30 day Reassessments:: Met Psychosocial - 60-Day Assess Target Goals Target Goals Outcomes/Goals: See list Psychosocial Outcomes/Goals:: ID's personal stressors & 2 strategies to manage stress by discharge and Other Additional outcome/goals: Psychosocial - 90-Day Assess Target Goals Target Goals Psychosocial - Final Assessmen Target Goals Target Goals Nutrition - 90-Day Assessment Weight Mgt (Other Care) Height: 5 ft 2 in Weight:: 163 lb BMI: 29.8 Nutrition - Final Assessment Weight Mgt (Other Care) Height: 5 ft 2 in Weight:: 163 lb BMI: 29.8
[2023-07-01 09:13] VITALS: BP 120/70; BMI 29.8
== END 2023-07-02 23:59 ==
LOC: CR 08:00
PROVIDERS: PCP Internal Medicine; Referring Provider Internal Medicine Cardiovascular Disease; Visit Provider Internal Medicine Cardiovascular Disease
DX: Z95.1 Presence of aortocoronary bypass graft (principal); I25.10 Atherosclerotic heart disease of native coronary artery without angina pectoris
CPT/HCPCS: 93798

== ENCOUNTER → 2023-07-21 | Outpatient (CLI) | payer MEDICARE, SELFPAY ==
[2023-07-01 09:13] VITALS: BMI 29.8
== END | disposition home or self-care (01) ==
LOC: SL 12:50
PROVIDERS: PCP Internal Medicine; Referring Provider Nurse Practitioner Acute Care; Visit Provider Nurse Practitioner Acute Care
DX: Z00.00 Encounter for general adult medical examination without abnormal findings (principal)

== ENCOUNTER → 2023-07-21 | Outpatient (CLI) | payer MEDICARE, SELFPAY ==
[2023-06-01 10:29] VITALS: BMI 29.8
[2023-07-01 09:13] VITALS: BMI 29.8
--- NOTE | 2023-07-21 08:50 | BD_ITS ---
STUDY: DUAL ENERGY X-RAY ABSORPTIOMETRY / DXA REASON FOR EXAM: Female, 72 years old. Osteoporosis TECHNIQUE: Bone Mineral Density (BMD) measurements of lumbar spine and bilateral hips were obtained. COMPARISON: Comparison is made with prior study of June 13, 2021. FINDINGS: Lumbar Spine (L1-L4): g/cm2 (0.812) / T-score (-3.1) / Z-score (-0.7) Findings are suggestive of osteoporosis with a high fracture risk. Left Femur Total: g/cm2 (0.879) / T-score (-1.0) / Z-score (0.2) Left Femoral Neck: g/cm2 (0.709) / T-score (-1.7) / Z-score (-0.3) Right Femur Total: g/cm2 (0.829) / T-score (-1.3) / Z-score (-0.1) Right Femoral Neck: g/cm2 (0.630) / T-score (-2.3) / Z-score (by 0.8) The T-Scores on the most recent prior examination were: Lumbar Spine (L1-L4): There has been improvement of bone density since the previous examination. Left Femur Total: which represents an improvement of 7.4%. Right Femur Total: which represents an improvement of 4.2%. BD/Dexa Bone Density Study IMPRESSION: The patient is considered osteoporotic as outlined below according to World [employer] Organization (WHO) criteria with a high fracture risk. There has been improvement of bone density since the previous examination. Reference Information: The T-score is the number of standard deviations above or below the standard which is normal for young adults at their peak bone mineral density. The World Health Organization (WHO) interprets the T-scores as follows: Above -1 Normal bone density Between -1 and -2.5 Osteopenia Equal to / or below -2.5 Osteoporosis As a practical clinical guideline, osteopenia may be graded as follows: Mild -1 through -1.5 Moderate -1.6 through -2.0 Severe -2.1 through -2.4 The Z-score is the number of standard deviations above or below age-matched controls. A Z-score of less than -1.5 would be considered abnormal. References: 1. NIH Osteoporosis and Related Bone Diseases www osteo.org 2. International Society for Clinical Densitometry www iscd.org 3. National Osteoporosis Foundation www nof.org Electronically Signed: Tor Artis MD at 19:26 EDT ,
== END | disposition home or self-care (01) ==
LOC: OPBD 08:37
PROVIDERS: PCP Internal Medicine; Referring Provider Internal Medicine; Visit Provider Internal Medicine
DX: M81.0 Age-related osteoporosis without current pathological fracture (principal)
CPT/HCPCS: 77080

== ENCOUNTER 2023-07-31 08:00 | Outpatient (RCR) | payer MEDICARE, SELFPAY ==
[2023-07-03 00:06] VITALS: BP 120/70
--- NOTE | 2023-07-29 08:16 | PCM.CR.ITP ---
Nutrition - Initial Assessment Weight Mgt (Other Care) Height: 5 ft 2 in Weight:: 165 lb 8 oz BMI: 30.2 Psychosocial - Initial Assess Target Goals Target Goals Patient Health Questionnaire PHQ-9 Screening 60-Day Re-eval Assessment: 1. Little interest or pleasure in doing things: More than half the days 2. Feeling down, depressed, or hopeless: Not at all 3. Trouble falling or staying asleep, or sleeping too much: Nearly every day 4. Feeling tired or having little energy: More than half the days 5. Poor appetite or overeating: Nearly every day 6. Feeling bad about yourself -- or that you are a failure or have let yourself or your family down: Not at all 7. Trouble concentrating on things, such as reading the newspaper or watching television: Not at all 8. Moving or speaking so slowly that other people could have noticed. Or the opposite - being so fidgety or restless that you have been moving around a lot more than usual: Not at all 9. Thoughts that you would be better off , or of hurting yourself in some way: Not at all How difficult have these problems made it for you to do your work, take care of things at home, or get along with other people?: Somewhat difficult Total Score: 10 Self-Efficacy 6-Item Scale 60-Day Re-eval Assessment: We would like to know how confident you are in doing certain activities. Please select your confidence level for: Fatigue Select Number: 4 Physical Discomfort or Pain Select Number: 4 Emotional Distress Select Number: 6 Other Symptoms or Health Problems Select Number: 6 Different Tasks and Activities Select Number: 10 Medication Select Number: 7 Total Score:: 6 Nutrition Survey Nutrition Survey Instructions Scoring Instructions Exercise - 60-day Assessment Visit Date of Eval: 07/29/23 Session #:: 21 Physician Prescribed Exercise Modalities: Treadmill, Airdyne and NuStep Frequency: 3x/week for 12 weeks [36 sessions] Intensity: 60-80% of age predicted maximum heart rate reserve Duration: 30 - 45 minutes Current METSs:: 4.2 Target Heart Rate:: 112-127 Current RPE:: 11 Maximum Excercise HR:: 142 Resting Blood Pressure: 140/72 Maximum Exercise Blood Pressure: 184/80 EKG Type: NSR to ST with occas PVC Outcomes & Goals Goals:: Verbalizes understanding of THR, RPE & goal METS by session 6, Documents in home exercise log/reports 30 min aerobic 5 day/wk by DC, Demonstrates accurate pulse taking by DC and Other additional outcome/goals: see below Intervention & Plan Exercise Program Goals: Instruct on personal THR & RPE, Instruct on MET level & personal MET goal, Show patient to take own pulse /validate performance until accurate, Instruct on home exercise and Other additional plan/int 30-day Reassessments 30 day Reassessments:: Progressing Reassessment Notes & Comments:: THR explained Physical Activity Home Exercise Physical Activity - Home Exercise: Safe Exercise, Warm-up, Self-monitoring, Cool-Down, Home Exercise > 30 min Daily and Sitting Time <3 hours/daily Outcomes & Goals Outcomes/Goals: Demonstrates correct Warm-up/exercise Cool-Down (S3) if = 2.5 METs, Verbalizes symptoms of exercise intolerance by Session 3 (S3), Demonstrate safe equipment use (S3) & follows exercise prescrition (6) and Other: See below Intervention & Plan Plan/Intervention: Instruct warm-up & cool-down if exercising at > 2 METs, Instruct on symptoms of exercise intolerance & actions to take, Instruct & monitor on saf, Assess intial functional capacity & safety risk and Other See below 30-day Reassessments 30 day Reassessments:: Progressing Reassessment Notes & Comments:: cool down encouraged Nutrition - 30-Day Assessment Weight Mgt (Other Care) Height: 5 ft 2 in Weight:: 165 lb 8 oz BMI: 30.2 Nutrition - 60-Day Assessment Program Goals Nutrition Program Goals Patient has diagnosis of Hyperlipidemia (ICD E78)?: Yes Visit Date of Eval: 07/29/23 Session #:: 21 Cholesterol/Lipids (Other Core Measures) Determine presence & major risk factors that modify LDL goal: Hypertension or hypertensive medication, Low HDL cholesterol <40 mg/dL*, Family history of premature CHD in Male < 55 years: female <65 yearsFa and Age men > 45 years; women >/= 55 years Outcomes/Goals: Pt IDs own risk factors & lifestyle modifications by Session 10, Verbalizes symptoms of angina & response by session 3., Pt independently manages and Other Additional Outcomes/Goals: Intervention/Plan: Advocate for lipid panel cholesterol medication if applicable, Instruct on personal lipid levels & lipid goals/NCEP guidelines, Instruct on cholesterol and Other additional plan/int Referral to dietitian:: Yes 30-day Reassessments:: Met Reassessment Notes & Comments:: pt met with dietary Diabetes (Other Core Measures) Diabetes Type: Diagnosis Type II ICD-10 E11 Insulin dependent injection/pump?: No Non-Insulin Dependent?: Yes Do you monitor your blood sugar at home?: Yes Referral to Diabetic Clinic:: Yes Outcomes/Goals:: Able to state symptoms of, Able to state, Able to state and Other additional Intervention/Plan:: Instruct on, Refer to, Instruct on and Other 30-day Reassessments:: Met Reassessment Notes & Comments:: pt met with dietary Weight Mgt (Other Care) Height: 5 ft 2 in Weight:: 165 lb 8 oz BMI: 30.2 Diagnosis Overweight/Obesity BMI> 30% ICD-10 E66: Yes Diagnosis High BMI/Morbid Obesity BMI> 35% ICD-10 Z68: No Outcomes/Goals: Pt sets, maintains & shows weight loss goal & trend during rehab and Other additional outcomes/goals Intervention/Plan: Instruct on ideal BMI & set weight loss goal w/patient, Assist pt to ID & incorporate diet changes for weight loss by S9, Refer to Structured Weight Loss program as appropriate, Encourage goal of using 250-300dcal per session for weight loss and Other additional plan/interventions 30 day Reassessments:: Met Reassessment Notes & Comments:: pt met with dietary Healthy Eating Habits Will attend diet classes:: Yes Outcomes/Goals:: Consume diet rich in vegs,fruits,whole grain/high fiber,fish,lean meat, Limit sat/trans fats,cholesterol & added salts & sugars and Other additional outcome/goals: Intervention/Plan:: Assess current eating habits and Other Additional plan/interventions 30-day Reassessments:: Met Education Gave educational materials for:: Signs & symptoms of hypoglycemia, Signs & symptoms of hyperglycemia, Relate diabetes to coronary artery disease and Healthy eating Core - 60-Day Assessment Visit Date of Eval: 07/29/23 Session #:: 21 Medication Compliance Preventative Medication(s):: Aspirin, Clopidogrel/P2Y12 inhibit, Statin/lipid and Beta teri H/O mental health issues: depression, anxiety, or addiction?: No Doesn?t believe in the benefits of treatment?: No Believes medications are unnecessary or harmful?: No Has a concern about medication side effects?: No Expresses concern over the cost of medications?: No Outcomes/Goals: Verbalizes medications,desired effect & common side effects @ DC, Pt self-reports following medication regimen, Keeps card in wallet w/medications listed by DC and Other additional outcome/goals: Interventions/plans: Instruct on medication effects & side effects, Review medication list w/patient every two weeks, Instruct importance of taking meds as ordered & assist problem solving and Other additional 30-day Reassessments:: Met Tobacco Use Tobacco Use: Non-smoker Hypertension Hypertension Diagnosis:: Hypertension ICD-10 I10 Resting Blood Pressure:: 140/72 [place] [employer] Hypertension Guidelines Peak Exercise Blood Pressure:: 184/80 Outcomes/Goals: Able to verbalize/achieve optimal blood pressure <130/80, Incorporates diet changes & exercise for blood pressure control by DC and Other additional outcomes/goals Interventions/plan: Instruct on optimal blood pressure, hypertension & medications, Instruct on effects of sodium, alcohol, stress, exercise &hypertension and Other additional plan/interventions 30 day Reassessments:: Progressing Reassessment Notes & Comments:: pt encouraged to take her meds consistently Tobacco Cessation Referral Smoking Cessation Referral:: No Individual Education/Counseling:: No Education Schedule Given:: Yes Psychosocial - 30-Day Assess Target Goals Target Goals Outcomes/Goals: See list Psychosocial Outcomes/Goals:: ID's personal stressors & 2 strategies to manage stress by discharge and Other Additional outcome/goals: Psychosocial - 60-Day Assess VIsit Date of Eval: 07/29/23 Session #:: 21 History of previous Mental disease:: No Target Goals Target Goals Outcomes/Goals: See list Psychosocial Outcomes/Goals:: ID's personal stressors & 2 strategies to manage stress by discharge and Other Additional outcome/goals: Intervention/Plan: See List Interventions/Plan:: Assess stressors,coping strategies & signs of derpression on admission, Instruct/assist pt to develop coping & personal stress Mgt strategies, Refer to Behavioral Health if appropriate, Refer to Physician if appropriate, Instruct patient to recognize signs & symptoms of depression, Instruct patient to recog and Other additional plan/intervention 30-day Reassessments: 30 day Reassessments:: Met Psychosocial - 90-Day Assess Target Goals Target Goals Psychosocial - Final Assessmen Target Goals Target Goals Nutrition - 90-Day Assessment Weight Mgt (Other Care) Height: 5 ft 2 in Weight:: 165 lb 8 oz BMI: 30.2 Nutrition - Final Assessment Weight Mgt (Other Care) Height: 5 ft 2 in Weight:: 165 lb 8 oz BMI: 30.2
[2023-07-29 08:29] VITALS: BP 140/72; BMI 30.2
== END 2023-08-02 23:59 ==
LOC: CR 08:00
PROVIDERS: PCP Internal Medicine; Referring Provider Internal Medicine Cardiovascular Disease; Visit Provider Internal Medicine Cardiovascular Disease
DX: Z95.1 Presence of aortocoronary bypass graft (principal); I25.10 Atherosclerotic heart disease of native coronary artery without angina pectoris
CPT/HCPCS: 93798

== ENCOUNTER → 2023-08-10 | Outpatient (CLI) | payer MEDICARE, SELFPAY ==
[2023-07-29 08:29] VITALS: BMI 30.2
--- NOTE | 2023-08-10 11:48 | NM_ITS ---
CLINICAL: 72-year-old female with history of abdominal pain, early satiety and clinical gastroparesis. SEMI-SOLID PHASE 99m Tc SULFUR COLLOID GASTRIC EMPTYING STUDY COMPARISON: None available FINDINGS: The patient was administered 1.1 mCi of 99m Tc sulfur colloid mixed with oatmeal and consumed per os. Image acquisitions in the anterior-posterior projections were obtained for 60 minutes. There is prompt visualization of the stomach. There is no gastroesophageal reflux identified. First order kinetics are maintained throughout the duration of the acquisitions. The T ? linear fit was extrapolated to be 64.65 minutes, (Normal: 12-56 minutes). NM/Gastric Emptying Study IMPRESSION: 1. ABNORMAL 99m Tc sulfur colloid semi-solid phase (oatmeal) gastric emptying imaging examination. A. There is delayed semi-solid phase gastric emptying compared to normal controls with maintained first order kinetics throughout all components of the examination. (Osiel et al, J Nucl Med Tech 38: 186, 2010). Electronically Signed: Gold Parrish DO at 23:39 EDT ,
== END | disposition home or self-care (01) ==
PROVIDERS: PCP Internal Medicine; Referring Provider Internal Medicine Gastroenterology; Visit Provider Internal Medicine Gastroenterology
DX: E11.43 Type 2 diabetes mellitus with diabetic autonomic (poly)neuropathy (principal); K31.84 Gastroparesis
CPT/HCPCS: 78264; A9541

== ENCOUNTER → 2023-08-14 | Outpatient (CLI) | payer MEDICARE, SELFPAY ==
[2023-07-29 08:29] VITALS: BMI 30.2
--- NOTE | 2023-08-14 07:39 | CT_ITS ---
STUDY: CT ABDOMEN AND PELVIS WITH CONTRAST REASON FOR EXAM: Female, 72 years old. 3 month history of abdominal pain. Diarrhea. RADIATION DOSAGE (If Supplied By Facility): CTDIvol = ( 20.32 ) mGy, DLP = ( 771.59 ) mGycm TECHNIQUE: Transaxial images were obtained from the dome of the diaphragm to the symphysis pubis with oral contrast. Oral and amp; IV Readi-CAT and amp; 100mL Isovue-370 was administered. Sagittal and coronal images were reconstructed. Individualized dose optimization techniques were used for this CT. COMPARISON: Comparison is made with prior study dated December 16, 2022. FINDINGS: The visualized lung bases are unremarkable. Coronary artery calcification. Normal liver. Normal gallbladder and extrahepatic biliary system. Normal spleen. Normal pancreas. Normal bilateral adrenal glands. There is a 1.9 cm cyst in the lower pole of the right kidney. Normal left kidney. Normal visualized stomach. Normal small intestine. There are scattered colonic diverticula consistent with diverticulosis. The appendix is visualized and appears normal. There is scattered atherosclerotic calcification of the abdominal aorta, without a demonstrated aneurysm. Normal inferior vena cava. Normal retroperitoneum. Normal urinary bladder. Normal abdominal wall. Stable mild loss of height of the superior endplate of the L5 vertebrae. CT/Abdomen/Pelvis WITH Contrast IMPRESSION: Stable right renal cyst. Scattered sigmoid diverticula. Electronically Signed: Tor Artis MD at 15:16 EDT ,
[2023-08-14 08:18] LABS: CREATININE FINGERSTICK < 1.0 mg/dL (0.55-1.02); EGFR FINGERSTICK > 60.0000 mL/min (>60)
== END | disposition home or self-care (01) ==
LOC: CT 07:38
PROVIDERS: PCP Internal Medicine; Visit Provider Internal Medicine Gastroenterology
DX: Z01.812 Encounter for preprocedural laboratory examination (principal); R19.7 Diarrhea, unspecified
CPT/HCPCS: 74177; Q9967

== ENCOUNTER 2023-08-19 08:00 | Outpatient (RCR) | payer MEDICARE, SELFPAY ==
[2023-07-29 08:29] VITALS: BMI 30.2
[2023-08-03 00:11] VITALS: BP 120/70; BP 140/72
--- NOTE | 2023-09-30 09:41 | PCM.CR.ITP ---
Psychosocial - Initial Assess Target Goals Target Goals Nutrition Survey Nutrition Survey Instructions Scoring Instructions Exercise - 90-day Assessment Visit Date of Eval: 09/30/23 Comments:: Pt has been discharged from [facility] due to poor attendance Psychosocial - 30-Day Assess Target Goals Target Goals Psychosocial - 60-Day Assess Target Goals Target Goals Psychosocial - 90-Day Assess Target Goals Target Goals Psychosocial - Final Assessmen Target Goals Target Goals
== END 2023-09-01 23:59 ==
LOC: CR 08:00
PROVIDERS: PCP Internal Medicine; Referring Provider Internal Medicine Cardiovascular Disease; Visit Provider Internal Medicine Cardiovascular Disease
DX: Z95.1 Presence of aortocoronary bypass graft (principal); I25.10 Atherosclerotic heart disease of native coronary artery without angina pectoris
CPT/HCPCS: 93798

== ENCOUNTER → 2023-09-07 | Outpatient (CLI) | payer MEDICARE, SELFPAY ==
[2023-07-29 08:29] VITALS: BMI 30.2
[2023-09-07 10:44] LABS: Absolute Lymphocyte Count 1.27 X10^3/uL (0.83-4.51); Basophil# 0.01 X10^3/uL; Basophil% 0.3 % (0-1); Eosinophil# 0.26 X10^3/uL; Eosinophils% 6.5 % (0-5); Hemoglobin 10.8 g/dL (12.0-15.0); Lymphocyte # 1.27 X10^3/ul (0.83-4.51); Lymphocyte % 31.9 % (19-41); Mean Corp Hgb Conc 32.7 g/dL (32-36); Mean Corpuscular Hgb 32.7 pg (27.0-32.0); Monocyte# 0.37 X10^3/uL; Monocyte% 9.3 % (0-10); NRBC Flagged by Analyzer 0 % (0-5); Neutrophil # 2.04 X10^3/uL (2.7-7.7); Neutrophil % 51.2 % (47-70); Platelet Count 186 K/mm3 (150-450); RBC Distribution Width CV 14.2 % (11.6-14.6); RBC Distribution Width SD 52.2 fl (35.1-43.9)
[2023-09-07 10:58] LABS: Erythrocyte Sedimentation Rate 2 mm/hr (0-30)
[2023-09-07 11:12] LABS: Valproic Acid (Depakene) Level 103 ug/mL (50-100)
[2023-09-07 11:15] LABS: ALB/GLOB Ratio 0.7 RATIO (0.9-2.4); AST(SGOT) 21 U/L (15-37); Alanine Aminotransfer ALT/SGPT 21 U/L (13-56); Albumin, Serum 2.8 g/dL (3.2-5.0); Alkaline Phosphatase 93 U/L (45-117); Anion Gap 5 (5-15); BUN 20 mg/dL (7-18); BUN/Creat Ratio 21.4 RATIO (10-20); CRP < 2.90 mg/L (0.0-3.0); Calcium,Total 8.4 mg/dL (8.5-10.1); Chloride 111 mmol/L (98-107); Creatinine, Serum 0.94 mg/dL (0.55-1.02); EST Glomerular Filtration Rate 63 mL/min (>60); Est Glom Filt Rate - Afr Amer 76 mL/min (>60); Globulin 3.8 g/dL (2.2-4.2); Glucose 139 mg/dL (74-106); Protein, Total 6.6 g/dL (6.4-8.2); Sodium Level 141 mmol/L (136-145); Thyroid Stim Hormone (TSH) 2.91 uIU/mL (0.358-3.74)
[2023-09-07 11:38] LABS: Hepatitis B Surface Antibody Non-Reactive; Hepatitis B Surface Antigen Non-Reactive (Nonreactive); Hepatitis C Antibody Non-Reactive (Nonreactive); Vitamin B12 366 pg/mL (211-911)
[2023-09-08 13:08] LABS: ANTINUCLEAR ANTIBODIES DIRECT Negative (Negative)
[2023-09-10 04:07] LABS: CCP IgG Antibodies 7 units (0-19); Vitamin B1, Thiamine 109.8 nmol/L (66.5-200.0)
== END | disposition home or self-care (01) ==
PROVIDERS: Psychiatry & Neurology Neurology; PCP Internal Medicine; Referring Provider Internal Medicine Rheumatology; Visit Provider Internal Medicine Rheumatology
DX: M06.4 Inflammatory polyarthropathy (principal); Z79.899 Other long term (current) drug therapy
CPT/HCPCS: 36415; 80053; 80164; 82140; 82607; 82746; 84425; 84443; 85025; 85652; 86038; 86140; 86200; 86431; 86706; 86803; 87340

== ENCOUNTER → 2023-09-16 | Outpatient (CLI) | payer MEDICARE, SELFPAY ==
[2023-07-29 08:29] VITALS: BMI 30.2
[2023-09-16 15:56] LABS: Ferritin 372 ng/mL (8-252); Iron 66 ug/dL (50-170); Iron Binding Capacity,Total 252 ug/dL (250-450)
== END | disposition home or self-care (01) ==
LOC: BIMLAB 12:08
PROVIDERS: PCP Internal Medicine; Visit Provider Internal Medicine
DX: D64.9 Anemia, unspecified (principal)
CPT/HCPCS: 36415; 82728; 83540; 83550

== ENCOUNTER 2023-09-30 07:15 | Day surgery (SDC) | payer MEDICARE, SELFPAY ==
[2023-07-29 08:29] VITALS: BMI 30.2
[2023-09-30] VITALS (17 sets, daily range): BP systolic 106–153; BP diastolic 56–94; PULSE 80–104; RESP 16; TEMP 36.1–36.4; O2SAT 97–100; BMI 30.3
--- NOTE | 2023-09-30 07:45 | EGD_PTH ---
PATIENT: LACY ALVARADO LOC: [facility] U#:[id number] AGE/SX: 72/F ROOM: RE09/30/[address]: Dr. Vadim Mckinney DO : 1950 BED: DIS: 09/30/2023 SPEC #: [id number] RECD: 09/30/23 08:50 STATUS: SANJANA CARLOS #: [id number] LARA: 09/30/23 07:[address]: Vadim Mckinney DEPT: SURGICAL PATHOLOGY RECD BY: Ambika Campos ENTERED: 09/30/23 10:44 SP TYPE: EGD BIOPSY ROSELINE DR: Dr. Kannan Garcia MD Tissues: A - Duodenum, NOS B - Gastric mucous membrane C - Ileum, NOS Procedures: Special Stain Group I Surgery Specimen Level IV Alcian Blue/PAS (control) HEADER OPERATION: Colonoscopy, EGD biopsy PRE-OP DIAGNOSIS: Abdominal pain TISSUE SUBMITTED: A- Duodenum biopsy, B- Gastric body biopsy, C- Terminal ileum biopsy MICROSCOPIC DIAGNOSIS A. Duodenum, biopsy: Mild non-specific chronic inflammation. B. Gastric body, biopsy: Chronic gastritis. Focal intestinal metaplasia. No evidence of dysplasia. See comment. C. Terminal ileum, biopsy: No pathologic change. AM/ 10/01/2023 COMMENT B. The results of immunohistochemistry for Helicobacter pylori will be reported separately ([id number]). Alcian blue/PAS stain with matched control supports the above diagnosis. Immunohistochemistry ([id number]) for P53 and Ki-67 will be performed and results will be reported separately. MICROSCOPIC DESCRIPTION Slides are reviewed. GROSS DESCRIPTION A. Received in fixative is one container labeled with the patient's name and designated Duodenum biopsy. The specimen consists of multiple irregular fragments of light bearden soft tissue that in aggregate measure 0.6 x 0.5 x 0.1 cm. The specimen is totally submitted in one cassette. B. Received in fixative is one container labeled with the patient's name and designated Gastric body biopsy. The specimen consists of two irregular fragments of light bearden soft tissue that in aggregate measure 0.5 x 0.5 x 0.1 cm. The specimen is totally submitted in one cassette. C. Received in fixative is one container labeled with the patient's name and designated Terminal ileum biopsy. The specimen consists of multiple irregular fragments of light bearden soft tissue that in aggregate measure 1.0 x 0.3 x 0.1 cm. The specimen is totally submitted in one cassette. DORY/ 09/30/2023 TC:3 CPT:94800o7,62863
--- NOTE | 2023-09-30 07:45 | IMM_PTH ---
PATIENT: LACY ALVARADO LOC: EN U#:[id number] AGE/SX: 72/F ROOM: RE09/30/[address]: Dr. Vadim Mckinney DO : 1950 BED: DIS: 09/30/2023 SPEC #: [id number] RECD: 09/30/23 11:15 STATUS: SANJANA REQ #: [id number] LARA: 09/30/23 07:[address]: Vadim Mckinney DEPT: IMMUNOHISTOCHEMISTRY RECD BY: Wei Barbour ENTERED: 09/30/23 11:15 SP TYPE: IMMUNO OTHR DR: Dr. Kannan Garcia MD Tissues: B - Gastric mucous membrane Procedures: H Pylori (initial) KI-67 (add) P53 (add) PHYSICIAN & INSTITUTION [facility] [id number] SPECIMEN INFORMATION: Tissue Source: B- Gastric body biopsy Clinical Info: Abdominal pain Specimen Number: [id number] CPT code: 56356,45712r6 METHODOLOGY: Deparaffinized sections of prefer/formalin-fixed tissue or PAP/DQ stained slides are incubated with monoclonal/polyclonal antibodies/oligonucleotide probes. Localization is made via biotin free immunoperoxidase method. Appropriate controls are performed and reacted as expected. Results on target cell population are indicated in the following table: RESULTS: ANTIBODY / CLONE RESULT Block B H Pylori (polyclonal) negative, null pattern P53 (DO-7) negative Ki-67 (30-9) positive, low These tests were developed and their performance characteristics determined by [facility]. They may not have been cleared or approved by the U.S. Food and Drug Administration. The FDA has determined that such clearance or approval is not necessary. The above immunohistochemical/dualISH markers are ordered and reviewed by the Pathologist. INTERPRETATION: B. Gastric body, biopsy: Negative for Helicobacter pylori organisms. No evidence of dysplasia. DORY/ 10/02/23
--- NOTE | 2023-09-30 07:48 | PCM.HP.BLA ---
History and Physical Date of Admission: 09/30/23 STOMACH ISSUES NEED REFERRAL Details: LACY ALVARADO, is a 72 F who presents to the office today for follow up. [facility] hospitalization 11.20.19-11.22.19 for abdominal pain and foreign body (fish bone) in stomach. CT abd/pel with contrast 11.20.19?lung scarring; hepatic fatty infiltration; renal cysts with high-grade renal artery stenosis and calcified plaques; gastric edema/thickening with possible 1.5cm foreign body appearing to penetrate gastric wall EGD 11.20.19?small fishbone found penetrating gastric antrum, removed *BGI established 01.17.21 with abdominal pain and intermittent nausea. ?EGD/colonoscopy 02.06.21?EGD LA Grade A esophagitis. Metaplasia neg. ? Colonoscopy two 5mm TA polyps; congested mucosa. Mild increase of eosinophils in cecum pathology OV 02.22.21 continue PPI and reassess in six months. Due to DMII will be difficult to titrate PPI. No follow up made. 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 Has daily abdominal pain, upper and lower. States appetite has decreased. Only eats one time a day and feels full. Denies heartburn or nausea. States her BM used to be regular once a day and now has alternating movements. Can go sometimes a week without going. When she does go it is small pieces. Has diarrhea every once in a while. ? ROS Const Constitutional: No fatigue ENT ENT: Positive for difficulty swallowing Gastro GI: Positive for abdominal pain, bloating, change in bowel habits, constipation, diarrhea, difficulty swallowing and excessive flatus; No belching, change in stool character, coffee ground emesis, cramping, heartburn, feeling full early, incontinent of stools, Vomiting blood/hematemesis, Blood in stool, loose stools, Black,tarry stools, nausea/dyspepsia, pain with swallowing, vomiting or other Musc Musculoskeletal: Positive for numbness, stiffness, tingling and Arthritis; No joint pain Skin Skin: No yellowing of the eye or itchy eyes Neuro Neurology: Positive for numbness, tingling and seizures Psych Psychiatric: No anxiety and No depression Endo Endocrine: No fatigue Aller/Imm Allergy/Immunologic: No itchy eyes True/Lymp Hematologic/Lymphatic: No easy bleeding or easy bruising Exam Const General: cooperative, healthy appearing and comfortable Nutritional Appearance: average body habitus Orientation: alert, awake and oriented x3 HENMT Head: normal to inspection, no palpable skull fracture and normocephalic Ears: hearing grossly normal bilaterally Nose: external nose normal Face and sinus: normal facial exam Mouth: oral mucosae normal Throat: posterior oropharynx normal Eyes General: appearance normal, both eyes and all related structures Neck Neck: normal visual inspection, full ROM and no lymphadenopathy Chest Chest palpation & inspection: normal inspection of the chest Resp Effort & Inspection: normal respiratory effort, able to speak in complete sentences and symmetric chest movement Cardio Rhythm: regular rhythm Heart Sounds: S1 normal and S2 normal GI Inspection: normal to inspection Auscultation: normal bowel sounds Percussion: normal to percussion Palpation: soft, no hepatosplenomegaly, not firm, no guarding, no hepatomegaly, no hepatosplenomegaly, no hernias, no masses, tender in the epigastrum, in the LLQ, in the RLQ, in the LUQ and in the RUQ; not periumbilically, not suprapubicly, Dailey's sign negative, obturator sign negative and with no rebound tenderness and No ascites Other: small suture to mid epigastric region sticking out of previous surgical scar no signs of infection. Musc Cervical Spine: normal cervical lordosis Thoracic/Lumbar Spine: thoracic and lumbar spine normal to inspection Skin General: no rashes or lesions noted Lesions: no lesions Rashes: no rashes Trauma: no lacerations or abrasions Wounds: no wounds Hair: normal Nails: normal Neuro General: patient alert, patient awake, patient oriented x3, gait normal, tone normal and moves all extremities Cranial Nerves: CN's II-XI intact bilaterally Cognition: normal cognition Speech: speech normal Gait: normal gait Motor: muscle tone normal throughout and strength 5/5 throughout Sensory Exam: no sensory deficits noted Extrem General: normal to inspection and full ROM Psych Appearance: grossly normal Mental Status: mental status grossly normal Mood: congruent mood Affect: normal affect Speech and Movement: speech and movement normal Attitude: cooperative Thought Process: normal Thought Content: normal Judgment: judgment good Quality Reporting Tobacco Screening ([facility] 138) Smoking Status: Never smoker Assessment and Plan Assessment and Plan (1) Abdominal pain: Status: Chronic Qualifiers: Abdominal location: epigastric Qualified Code(s): R10.13 - Epigastric pain Plan: Abdominal pain in epigastric region. Differential diagnosis is peptic ulcer disease secondary to antiplatelet therapy and less likely H. pylori. Also different diagnoses include motility disorder such as gastroparesis secondary to diabetes, medication induced side effect causing gastroparesis. She will undergo gastric emptying study and CT scanning of the abdomen and pelvis. Pending her imaging we will decide if she needs an upper endoscopy. Orders: Orders Abdomen/Pelvis WITH Contrast Today R19.7 - Diarrhea, unspecified Gastric Emptying Study Today E11.43 - Type 2 diabetes mellitus with diabetic autonomic (poly)neuropathy, K31.84 - Gastroparesis I have examined the patient and the H&P has been reviewed. There are no clinical changes since date of exam.
[2023-09-30] MEDS: Lactated Ringers 1,000 ML 15 ML IV (07:49)
[2023-09-30 08:00] LABS: Bedside Glucose 115 mg/dL (74-106)
--- NOTE | 2023-09-30 08:28 | OP.EGD_ITS ---
Patient Name: Nery Clark Procedure Date: 09/30/2023 7:55 AM Date of : 1950 Age: 72 Procedure: Upper GI endoscopy Indications: Epigastric abdominal pain Providers: Vadim Mckinney DO Referring MD: Kannan Garcia MD Medicines: Monitored Anesthesia Care Patient Profile: This is a 72 year old female. Refer to note in patient chart for documentation of history and physical. Patient has symptoms. Complications: No immediate complications. Procedure: Pre-Anesthesia Assessment: - Prior to the procedure, a History and Physical was performed, and patient medications and allergies were reviewed. The patient is competent. The risks and benefits of the procedure and the sedation options and risks were discussed with the patient. All questions were answered and informed consent was obtained. Patient identification and proposed procedure were verified by the physician in the pre-procedure area. Mental Status Examination: alert and oriented. Airway Examination: normal oropharyngeal airway and neck mobility. Respiratory Examination: clear to auscultation. CV Examination: normal. Prophylactic Antibiotics: The patient does not require prophylactic antibiotics. Prior Anticoagulants: The patient has taken no anticoagulant or antiplatelet agents. ASA Grade Assessment: II - A patient with mild systemic disease. After reviewing the risks and benefits, the patient was deemed in satisfactory condition to undergo the procedure. The anesthesia plan was to use monitored anesthesia care (MAC). Immediately prior to administration of medications, the patient was re-assessed for adequacy to receive sedatives. The heart rate, respiratory rate, oxygen saturations, blood pressure, adequacy of pulmonary ventilation, and response to care were monitored throughout the procedure. The physical status of the patient was re-assessed after the procedure. After obtaining informed consent, the endoscope was passed under direct vision. Throughout the procedure, the patient's blood pressure, pulse, and oxygen saturations were monitored continuously. The Colonoscope was introduced through the mouth, and advanced to the second part of duodenum. The upper GI endoscopy was accomplished without difficulty. The patient tolerated the procedure well. Scope In: 7:59:55 AM Scope Out: 8:04:01 AM Total Procedure Duration Time 0 hours 4 minutes 6 seconds Findings: The examined esophagus was normal. Patchy mildly erythematous mucosa without bleeding was found in the gastric body. Biopsies were taken with a cold forceps for histology. Verification of patient identification for the specimen was done. Biopsies were taken with a cold forceps for Helicobacter pylori testing. Verification of patient identification for the specimen was done. Patchy mildly erythematous mucosa without active bleeding and with no stigmata of bleeding was found in the duodenal bulb and in the first portion of the duodenum. Biopsies were taken with a cold forceps for histology. Verification of patient identification for the specimen was done. Estimated blood loss was minimal. Impression: - Normal esophagus. - Erythematous mucosa in the gastric body. Biopsied. - Erythematous duodenopathy. Biopsied. Recommendation: - Discharge patient to home. - Resume previous diet. - Continue present medications. - Await pathology results. Procedure Code(s): --- Professional --- 32712, Esophagogastroduodenoscopy, flexible, transoral; with biopsy, single or multiple CPT copyright 2021 [employer]. All rights reserved. The codes documented in this report are preliminary and upon parts washer review may be revised to meet current compliance requirements. Vadim Mckinney DO 09/30/2023 8:27:57 AM This report has been signed electronically. Number of Addenda: 0 Note Initiated On: 09/30/2023 7:55 AM
--- NOTE | 2023-09-30 08:28 | OP.CCLET_ITS ---
09/30/2023 Kannan Garcia MD [address] [place] [address] [place] [address] Re : Upper GI endoscopy procedure for Nery Clark Dear Dr. Garcia This procedure was performed on Saturday, September 30, 2023. My impressions and recommendations are as follows: Impressions : - Normal esophagus. - Erythematous mucosa in the gastric body. Biopsied. - Erythematous duodenopathy. Biopsied. Recommendations : - Discharge patient to home. - Resume previous diet. - Continue present medications. - Await pathology results. My findings are described in the full procedure note, which is enclosed. If I can be of further assistance, please feel free to contact me at . Sincerely, Vadim Mckinney, 09/30/2023 8:27:57 AM This report has been signed electronically.
--- NOTE | 2023-09-30 08:31 | OP.COLON_ITS ---
Patient Name: Nery Clark Procedure Date: 09/30/2023 8:04 AM Date of : 1950 Age: 72 Procedure: Colonoscopy Indications: Generalized abdominal pain, Iron deficiency anemia Providers: Vadim Mckinney DO Referring MD: Kannan Garcia MD Medicines: Monitored Anesthesia Care Patient Profile: This is a 72 year old female. Refer to note in patient chart for documentation of history and physical. Patient has symptoms. Last Colonoscopy: 5 years ago. Complications: No immediate complications. Procedure: Pre-Anesthesia Assessment: - Prior to the procedure, a History and Physical was performed, and patient medications and allergies were reviewed. The patient is competent. The risks and benefits of the procedure and the sedation options and risks were discussed with the patient. All questions were answered and informed consent was obtained. Patient identification and proposed procedure were verified by the physician in the pre-procedure area. Mental Status Examination: alert and oriented. Airway Examination: normal oropharyngeal airway and neck mobility. Respiratory Examination: clear to auscultation. CV Examination: normal. Prophylactic Antibiotics: The patient does not require prophylactic antibiotics. Prior Anticoagulants: The patient has taken no anticoagulant or antiplatelet agents. ASA Grade Assessment: II - A patient with mild systemic disease. After reviewing the risks and benefits, the patient was deemed in satisfactory condition to undergo the procedure. The anesthesia plan was to use monitored anesthesia care (MAC). Immediately prior to administration of medications, the patient was re-assessed for adequacy to receive sedatives. The heart rate, respiratory rate, oxygen saturations, blood pressure, adequacy of pulmonary ventilation, and response to care were monitored throughout the procedure. The physical status of the patient was re-assessed after the procedure. After I obtained informed consent, the scope was passed under direct vision. Throughout the procedure, the patient's blood pressure, pulse, and oxygen saturations were monitored continuously. The Colonoscope was introduced through the anus and advanced to the terminal ileum. Scope In: 8:05:52 AM Scope Withdrawal Time 0 hours 9 minutes 38 seconds Scope Out: 8:20:26 AM Total Procedure Duration Time 0 hours 14 minutes 34 seconds Findings: The perianal and digital rectal examinations were normal. A few small-mouthed diverticula were found in the recto-sigmoid colon and sigmoid colon. The exam was otherwise without abnormality on direct and retroflexion views. A patchy area of the terminal ileum was congested. Biopsies were taken with a cold forceps for histology. Verification of patient identification for the specimen was done. Estimated blood loss was minimal. There was a medium-sized lipoma, at the hepatic flexure. Impression: - Diverticulosis in the recto-sigmoid colon and in the sigmoid colon. - The examination was otherwise normal on direct and retroflexion views. - Congested mucosa in the terminal ileum. Biopsied. Recommendation: - Discharge patient to home. - Resume previous diet. - Continue present medications. - Await pathology results. - Repeat colonoscopy in 5 years for surveillance. Procedure Code(s): --- Professional --- 88528, Colonoscopy, flexible; with biopsy, single or multiple CPT copyright 2021 [employer]. All rights reserved. The codes documented in this report are preliminary and upon rn operating room review may be revised to meet current compliance requirements. Vadim Mckinney DO 09/30/2023 8:30:57 AM This report has been signed electronically. Number of Addenda: 0 Note Initiated On: 09/30/2023 8:04 AM
--- NOTE | 2023-09-30 08:31 | OP.CCLET_ITS ---
09/30/2023 Kannan Garcia MD [address] [place] [address] [place] [address] Re : Colonoscopy procedure for Nery Clark Dear Dr. Garcia This procedure was performed on Saturday, September 30, 2023. My impressions and recommendations are as follows: Impressions : - Diverticulosis in the recto-sigmoid colon and in the sigmoid colon. - The examination was otherwise normal on direct and retroflexion views. - Congested mucosa in the terminal ileum. Biopsied. Recommendations : - Discharge patient to home. - Resume previous diet. - Continue present medications. - Await pathology results. - Repeat colonoscopy in 5 years for surveillance. My findings are described in the full procedure note, which is enclosed. If I can be of further assistance, please feel free to contact me at . Sincerely, Vadim Mckinney, 09/30/2023 8:30:57 AM This report has been signed electronically.
--- NOTE | 2023-09-30 08:35 | EKG12_ITS ---
Test Reason : Blood Pressure : / mmHG Vent. Rate : 089 BPM Atrial Rate : 089 BPM P-R Int : 144 ms QRS Dur : 082 ms QT Int : 384 ms P-R-T Axes : 056 005 059 degrees QTc Int : 467 ms Normal sinus rhythm Normal ECG When compared with ECG of 19-DEC-2022 05:49, No significant change was found Confirmed by Aleksandr Salinas ([id number]), commercial production editor ADIA ARDON ([id number]) on 10/05/2023 9:34:11 AM Referred By: Kannan Garcia Confirmed By:Aleksandr Salinas
[2023-09-30] MEDS: Mag Hydrox/Al Hydrox/Simeth 30 ML UDC PO (08:59)
[2023-09-30] MEDS: Nitroglycerin (INPATIENT USE) 0.4 MG TAB.SUBL SL ×2 (09:34→09:44)
--- NOTE | 2023-09-30 09:41 | SUR.PHASEI ---
0935, troponin drawn and nitro given.
[2023-09-30 10:04] LABS: Troponin-I HS 4 pg/mL (3.0-54.0)
== END 2023-09-30 10:55 | disposition home or self-care (01) ==
LOC: EN 07:16 → AC 07:17
PROVIDERS: Anesthesiology; PCP Internal Medicine; Referring Provider Internal Medicine; Visit Provider Internal Medicine Gastroenterology
PROC: 0DJD8ZZ Inspection of Lower Intestinal Tract, Via Natural or Artificial Opening Endoscopic (ICD-10-PCS; CPT 45378; principal; 2023-09-30 07:40)
DX: R10.13 Epigastric pain (principal); E11.9 Type 2 diabetes mellitus without complications; K63.89 Other specified diseases of intestine; K57.30 Diverticulosis of large intestine without perforation or abscess without bleeding; Z95.1 Presence of aortocoronary bypass graft; Z79.02 Long term (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 of antithrombotics/antiplatelets; K31.89 Other diseases of stomach and duodenum; D17.5 Benign lipomatous neoplasm of intra-abdominal organs; K29.70 Gastritis, unspecified, without bleeding; K31.A0 Gastric intestinal metaplasia, unspecified
CPT/HCPCS: 43239; 45380; 82962; 84484; 88305; 88312; 88341; 88342; 93005; J7120; J2405

== ENCOUNTER → 2023-10-06 | Outpatient (CLI) | payer MEDICARE, SELFPAY ==
[2023-07-29 08:29] VITALS: BMI 30.2
--- NOTE | 2023-10-06 09:23 | RAD_ITS ---
STUDY: X-RAY - PELVIS REASON FOR EXAM: Female, 72 years old. PAIN TECHNIQUE: One view of the pelvis was obtained. COMPARISON: None. FINDINGS: There is a non-specific bowel gas pattern. Normal visualized soft tissue structures. Normal bilateral iliac wings, sacroiliac joints and visualized sacrum. Normal visualized bilateral superior and inferior pubic rami. Normal pubic symphysis. Normal ischial tuberosities. Normal visualized right femoral head. Normal right acetabulum. Mildly narrowed right hip joint. Normal visualized left femoral head. Normal left acetabulum. [Narrowed left hip joint. RAD/Pelvis 1 or 2 Views IMPRESSION: Degenerative changes of the hips. No evidence for acute hip or pelvic fracture. Electronically Signed: Obinna Hodges MD at 18:40 EDT ,
== END | disposition home or self-care (01) ==
LOC: MTRAD 09:22
PROVIDERS: PCP Internal Medicine; Referring Provider Internal Medicine Rheumatology; Visit Provider Internal Medicine Rheumatology
DX: M06.4 Inflammatory polyarthropathy (principal)
CPT/HCPCS: 72170

== ENCOUNTER 2023-11-15 10:03 | Observation (INO) | payer MEDICARE, SELFPAY ==
[2023-07-29 08:29] VITALS: BMI 30.2
[2023-11-15 10:04] VITALS: BP 145/84; PULSE 126; RESP 20; TEMP 36.6; O2SAT 100; BMI 34.8
--- NOTE | 2023-11-15 10:14 | EX.ED.DYSGE1 ---
HPI History of Present Illness Chief Complaint: General Illness Informant: patient Onset/Context/Timing Onset: Weeks (1) Context: Gradual Onset Timing: Continuous Quality: Aching Location: Right shoulder and right chest Worsened by: Lifting her arm Relieved by: Nothing Narrative Narrative: Patient presents with right arm pain and shortness of breath that has been getting worse over the past week. Patient states became worse last night. Patient describes her pain as aching. Patient states it starts in her right shoulder and radiates down into her chest. Patient states it is worse whenever she lifts her arm. Patient states that when she lifts her arm, her heart races and she feels more short of breath. Patient states nothing seems to help her symptoms. Patient denies any fevers or chills. Patient denies any recent travel or recent surgery. Patient denies any history of DVT, PE, or cancer. [facility] Medical History Wears partial dentures Injury of head and neck Gastric reflux Encounter for transesophageal echo performed as part of open chest procedure History of echocardiogram History of stress test Tremor Retained suture Chest wall tenderness Fatigue Flu vaccine need Lower extremity edema History of coronary artery disease History of hypertension Left ankle pain Right hip pain Right groin pain Memory changes Left shoulder pain Cervical radiculopathy Cough Health care maintenance Right shoulder pain Therapeutic drug monitoring Osteoporosis Compression fracture of lumbar spine, non-traumatic Dysuria Dysuria Urinary frequency Acute back pain Personal history of colonic polyps GERD (gastroesophageal reflux disease) Hyperglycemia due to type 2 diabetes mellitus Wears glasses Diabetes Arthritis Anemia Non-smoker CPAP (continuous positive airway pressure) dependence Sleep apnea Shortness of breath on exertion Cardiology follow-up encounter Abdominal pain Osteoarthritis Congestive heart failure (CHF) Routine health maintenance Colon cancer screening Foreign body in stomach Seizure disorder Type 2 diabetes mellitus Diabetes mellitus type 2 in nonobese Obesity Urinary frequency Conversion disorder Obstructive sleep apnea Non-toxic goiter Essential (primary) hypertension RIGHT FOOT HEEL SPUR Atherosclerotic heart disease of [place] coronary artery without angina pectoris Rheumatoid arthritis Diabetes type 2, controlled Hives Seasonal allergies Hyperlipidemia Chronic diastolic CHF (congestive heart failure) Home Medications ?Medication ?Instructions ?Recorded ?Last Taken ?Type multivitamin 1 tab PO DAILY vitamin 05/20/19 12/16/22 History blood-glucose meter (True Metrix #1 ea 02/03/20 Unknown Rx Air Glucose Meter kit) calcium citrate 200 mg (950 mg) 200 mg PO DAILY supplement 05/21/20 12/16/22 History tablet disability placard #1 ea 06/27/20 Unknown Rx aspirin 81 mg tablet,delayed 81 mg PO DAILY heart 08/13/20 12/11/22 History release (Adult Low Dose Aspirin) clopidogrel 75 mg tablet See Rx Instructions .Route 08/20/22 12/16/22 Rx .COMPLEX heart #90 TABLETS denosumab 60 mg/mL subcutaneous 60 mg subcut [id number] #1 mL 12/11/22 Unknown Rx syringe (Prolia) divalproex 250 mg tablet,delayed 250 mg PO QPM seizure #90 tabs 02/11/23 Unknown Rx release divalproex 500 mg tablet,delayed 500 mg .Route .COMPLEX seizures 02/11/23 Unknown Rx release (Depakote) #90 tabs atorvastatin 80 mg tablet 80 mg PO QHS cholesterol #90 tabs 06/17/23 Unknown Rx blood sugar diagnostic (True #100 ea 06/17/23 Unknown Rx Metrix Glucose Test Strip) hydroxychloroquine 200 mg tablet See Rx Instructions .Route 06/17/23 Unknown Rx .COMPLEX immunosuppressant #180 tabs isosorbide mononitrate 60 mg 60 mg PO DAILY #90 tabs 06/17/23 Unknown Rx tablet,extended release 24 hr lancets 33 gauge #100 ea 06/17/23 Unknown Rx metoprolol tartrate 25 mg tablet 25 mg PO BID 3 months #180 tabs 06/17/23 Unknown Rx pantoprazole 40 mg tablet,delayed 40 mg PO DAILY stomach #90 tabs 06/17/23 Unknown Rx release sitagliptin phosphate 100 mg See Rx Instructions .Route 06/17/23 Unknown Rx tablet (Januvia) .COMPLEX diabetes #90 tabs rifaximin 550 mg tablet (Xifaxan) 550 mg PO TID 14 days #42 tabs 10/07/23 Unknown Rx folic acid 1 mg tablet 2 mg PO QDAY 10/26/23 Unknown History methotrexate sodium 2.5 mg tablet 12.5 mg PO QWEEK 10/26/23 Unknown History Allergy/AdvReac Type Severity Reaction Status Date / Time prednisone AdvReac Severe Hives Verified 11/15/23 10:07 Family History Grandmother Alcoholism Cancer Arthritis Mother Alcoholism Diabetes blood clots Hypertension Grandfather Heart disease Sister Thyroid disorder Other Breast cancer Cervical cancer Colon cancer Surgical History History of coronary artery bypass graft History of coronary artery bypass graft x 3 History of cardiac catheterization History of left heart catheterization (09/20/18) History of coronary artery stent placement (03/22/18) History of carpal tunnel surgery History of section H/O: hysterectomy Social History household members: none Smoking Status: Never smoker second hand exposure: No alcohol intake: current alcohol intake frequency: holidays/special occasions only substance use type: does not use what type of physical activity do you participate in: none ROS ROS ED Constitutional Constitutional ED: Denies chills or fever(s) Eyes Eyes: Denies blurry vision or change in vision ENT ENT ED: Denies rhinorrhea or sore throat Cardiovascular Cardiovascular: Reports chest pain, palpitations and racing heartbeat Respiratory/Chest Respiratory/Chest: Reports dyspnea; Denies cough Gastrointestinal Gastrointestinal: Reports nausea; Denies vomiting Genitourinary Genitourinary ED: Denies dysuria or hematuria Musculoskeletal Musculoskeletal: Reports neck pain; Denies back pain Integumentary Denies abscess or rash Neurologic Neurologic: Denies headache(s) or weakness Allergic/Immunologic Allergic/Immunologic ED: Denies mouth swelling or urticaria EXAM Physical Exam Const Vital Signs: 11/15/23 10:04 11/15/23 11:03 11/15/23 12:04 Temperature 98 F Temperature Source Temporal Pulse Rate 126 H 105 H Respiratory Rate 20 H 18 Blood Pressure 145/84 H 150/76 H Blood Pressure Mean 104 100 Pulse Ox 100 98 Oxygen Delivery Method Room Air Room Air Room Air 11/15/23 14:05 Temperature 97.1 F L Temperature Source Pulse Rate 99 Respiratory Rate 12 Blood Pressure 146/82 H Blood Pressure Mean 103 Pulse Ox 100 Oxygen Delivery Method Positive well nourished and well developed General Appearance ED: well developed and NAD HEENT Reports moist mucous membranes Neck supple and no JVD Chest Wall Chest Narrative: There is tenderness to palpation over the right upper chest wall. There is no bony crepitance or step-off. There is no subcutaneous emphysema palpated. Resp normal respiratory effort and clear to auscultation bilaterally Cardio regular rhythm Rate: tachycardic GI non-tender and non-distended Extremity Extremity Narrative: There is tenderness to palpation over the right shoulder area. There is no edema or ecchymosis. Range of motion was limited in all motions of the right shoulder secondary to pain. Radial pulses are equal bilaterally. Strength is 5/5 bilateral in the upper extremities. There are no sensory deficits noted. Neuro oriented x3, CN's II-XII intact bilaterally and no sensory deficits noted Sensorium / Orientation: alert Motor Exam: strength 5/5 throughout Psych mental status grossly normal MDM MDM MDM Narrative Medical decision making narrative: Differential diagnosis includes pulmonary embolism, pneumonia, pneumothorax, cardiac dysrhythmia, cardiac ischemia, electrolyte abnormality, bicipital tendinitis, and musculoskeletal pain. EKG will be obtained to assess for cardiac dysrhythmia and cardiac ischemia. CBC will be obtained to assess for leukocytosis and anemia. Basic metabolic profile will be obtained to assess for electrolyte abnormality and renal function. High-sensitivity troponin will be obtained to assess for cardiac ischemia. CTA of the chest will be obtained to assess for pulmonary embolism, pneumonia, and pneumothorax. Lab Data Attestation: I reviewed the patient's lab results. Lab results narrative: CBC was reviewed and was essentially within normal limits. PT was INR and PTT were reviewed and were within normal limits. Basic metabolic profile was reviewed. BUN was slightly elevated at 26 and creatinine was 1.04. Glucose was slightly elevated at 140. Initial high-sensitivity troponin was reviewed and was normal at 4. Serum magnesium level was reviewed and was normal at 1.9. 2-hour repeat high-sensitivity troponin was reviewed and was normal at 4. Labs: Laboratory Results - last 24 hr 11/15/23 11/15/23 11/15/23 11:01 11:20 13:10 WBC 8.9 RBC 3.66 L Hgb 12.0 Hct 36.5 L MCV 99.7 H MCH 32.8 H MCHC 32.9 RDW Std Deviation 47.8 H RDW Coeff of [place] 13.0 Plt Count 159 MPV 11.4 Immature Gran % (Auto) 0.400 Neut % (Auto) 75.4 H Lymph % (Auto) 15.0 L [place] % (Auto) 8.2 Eos % (Auto) 0.8 Baso % (Auto) 0.2 Absolute Neuts (auto) 6.7 Absolute Lymphs (auto) 1.34 Nucleated RBC % 0 PT Cancelled 14.1 INR Cancelled 1.1 APTT Cancelled 26.8 Sodium 136 Potassium 4.5 Chloride 109 H Carbon Dioxide 21.0 Anion Gap 6 BUN 26 H Creatinine 1.04 H Estim Creat Clear Calc 51.32 Est GFR (MDRD) Af Amer 67 Est GFR (MDRD) Non-Af 56 L BUN/Creatinine Ratio 25.0 H Glucose 140 H Calcium 8.7 Magnesium 1.9 Troponin I High Sens 4 4 Radiography Diagnostic Testing: Clinical Impression(s) from Imaging Studies Chest CTA 11/15/23 10:37 IMPRESSION: 1. The examination is limited due to nonoptimal contrast bolus timing. No definite evidence of pulmonary artery embolus. 2. Coronary artery calcifications and/or stents. Status post CABG. RECOMMENDATIONS: If there is persistent high clinical concern for pulmonary embolus, consider a ventilation scan or repeat CT pulmonary angiogram. Electronically Signed: Tim Jain, at 12:33 EDT , Due to the tachycardia and pleuritic nature of her chest pain, CTA of the chest was obtained. There is suboptimal contrast bolus timing. There is no definite evidence of pulmonary embolism. This was interpreted by the radiologist was also independently reviewed by myself. EKG Initial EKG: Attestation: I personally reviewed and interpreted this EKG as follows: Interpretation: No Acute Injury Pattern and Sinus Tachycardia (131) Comments: EKG was obtained. On my independent interpretation, shows sinus tachycardia with a rate of 131. [place] interval was normal at 112 ms. QRS interval is normal at 62 ms. QTc interval is normal at 454 ms. [place] is normal. There are no acute ST or T wave changes noted. Prior EKG tracings: available for review Prior: Unchanged (09/30/2023) Treatment and Re-Evaluation :: Patient was given aspirin and morphine here. Patient was advised of her findings. Patient has a HEART score of 5. Patient did have coronary artery bypass graft last December. Because of this, recommended admission to the hospital. Case was discussed with the hospitalist. He will admit the patient to his service. Patient and family understood and were agreeable with the plan. All questions were answered. Discharge Plan Dx/Rx/DC Orders Clinical Impression: Chest pain, History of coronary artery bypass graft x 3, Tachycardia, Right shoulder pain, Type 2 diabetes mellitus Disposition Disposition: Acute Care Hospital [facility]
--- NOTE | 2023-11-15 10:37 | CT_ITS ---
EXAM: CT ANGIOGRAPHY CHEST WITHOUT AND WITH INTRAVENOUS CONTRAST CLINICAL INDICATION: Chest pain TECHNIQUE: Helically acquired angiography images were obtained of the chest without and with intravenous contrast. This CT exam was performed using one or more of the following dose reduction techniques: automated exposure control, adjustment of the mA and/or kV according to patient size, and/or use of iterative reconstruction technique. MIP reconstructed images were created and reviewed. CONTRAST: IV 100mL [id number] COMPARISON: CT abdomen and pelvis, 08/14/2023. FINDINGS: LIMITATIONS: The examination is limited due to nonoptimal contrast bolus timing. PULMONARY ARTERIES: There is no distinct pulmonary artery going defect indicating pulmonary embolus. Normal in caliber. AORTA: Atherosclerosis of the aorta and its branch vessels. Normal in caliber. No evidence of dissection. GREAT VESSELS OF AORTIC ARCH: No significant abnormality. Normal in caliber. No evidence of dissection. LUNGS AND PLEURAL SPACES: No significant abnormality. No mass. No consolidation or edema. No pleural effusion or thickening. No pneumothorax. HEART: Coronary artery calcifications and/or stents. Status post CABG. Heart size is normal. No pericardial effusion. MEDIASTINUM: No significant abnormality. No mediastinal or hilar adenopathy. Esophagus is unremarkable. No hiatal hernia. THYROID: No significant abnormality. No thyroid lesions. BONES/JOINTS: No significant abnormality. No suspicious lytic or blastic abnormality. CT/CTA Chest W/WO Contrast IMPRESSION: 1. The examination is limited due to nonoptimal contrast bolus timing. No definite evidence of pulmonary artery embolus. 2. Coronary artery calcifications and/or stents. Status post CABG. RECOMMENDATIONS: If there is persistent high clinical concern for pulmonary embolus, consider a ventilation scan or repeat CT pulmonary angiogram. Electronically Signed: Tim Jain DO at 12:33 EDT ,
--- NOTE | 2023-11-15 10:37 | EKG12_ITS ---
Test Reason : CP Blood Pressure : / mmHG Vent. Rate : 131 BPM Atrial Rate : 131 BPM P-R Int : 112 ms QRS Dur : 062 ms QT Int : 308 ms P-R-T Axes : 057 007 003 degrees QTc Int : 454 ms Sinus tachycardia Possible Left atrial enlargement Borderline ECG Confirmed by NORAH ZUNIGA, JAMILA ([id number]), graphics editor ADIA ARDON ([id number]) on 11/18/2023 9:46:55 AM Referred By: AR/ES Confirmed By:DONALD ALMAZAN MD
[2023-11-15] MEDS: Morphine 4 MG/ML Syringe IV ×2 (11:06→12:35)
[2023-11-15] MEDS: Aspirin 81 MG TAB.CHEW 324 MG PO (11:06)
[2023-11-15 11:11] LABS: Absolute Lymphocyte Count 1.34 X10^3/uL (0.83-4.51); Absolute Neutrophil Count 6.7 X10^3/uL (2.0-7.7); Basophil# 0.02 X10^3/uL; Basophil% 0.2 % (0-1); Eosinophil# 0.07 X10^3/uL; Eosinophils% 0.8 % (0-5); Hematocrit 36.5 % (37-47); Lymphocyte # 1.34 X10^3/ul (0.83-4.51); Mean Corp Hgb Conc 32.9 g/dL (32-36); Mean Corpuscular Hgb 32.8 pg (27.0-32.0); Mean Corpuscular Volume 99.7 fL (81-99); Mean Platelet Vol. 11.4 fl (6.2-12.0); Monocyte# 0.73 X10^3/uL; Monocyte% 8.2 % (0-10); NRBC Flagged by Analyzer 0 % (0-5); Neutrophil # 6.74 X10^3/uL (2.7-7.7); Neutrophil % 75.4 % (47-70); Platelet Count 159 K/mm3 (150-450); RBC Distribution Width SD 47.8 fl (35.1-43.9); Red Blood Count 3.66 M/mm3 (4.2-5.4); White Blood Count 8.9 K/mm3 (4.4-11.0)
[2023-11-15 11:32] LABS: Anion Gap 6 (5-15); BUN 26 mg/dL (7-18); Calcium,Total 8.7 mg/dL (8.5-10.1); Chloride 109 mmol/L (98-107); Creatinine, Serum 1.04 mg/dL (0.55-1.02); EST Glomerular Filtration Rate 56 mL/min (>60); Est Glom Filt Rate - Afr Amer 67 mL/min (>60); Estimated Creatinine Clearance 51.32 ml/min; Glucose 140 mg/dL (74-106); Magnesium 1.9 mg/dL (1.6-2.6); Potassium 4.5 mmol/L (3.5-5.1); Sodium Level 136 mmol/L (136-145); Troponin-I HS (w/2H Reflex) 4 pg/mL (3.0-54.0)
[2023-11-15 11:40] LABS: International Normalized Ratio 1.1; Prothrombin Time (Protime)PT. 14.1 SECONDS (11.7-14.9)
[2023-11-15 11:41] LABS: Partial Thromboplast Time 26.8 Seconds (24.1-36.2)
[2023-11-15 12:04] VITALS: BP 150/76; PULSE 105; RESP 18; O2SAT 98
[2023-11-15 13:05] LABS: Reflex Troponin-HS? (from REC) Y
[2023-11-15 13:43] LABS: Troponin-I HS 4 pg/mL (3.0-54.0)
[2023-11-15 14:05] VITALS: BP 146/82; PULSE 99; RESP 12; TEMP 36.2; O2SAT 100
--- NOTE | 2023-11-15 14:09 | PCM.HP.STD ---
HPI - General General Date of Admission: 11/15/23 Date of Service: 11/15/23 Chief Complaint: Chest pain HPI Narrative LACY ALVARADO, is a 72 F who presents with multiple comorbidities including coronary artery disease with CABG in 01/21/2023 who presented with chest pain. Per patient symptoms have been ongoing for a week. The the pain is described as discomfort located in the epigastric region. Patient states pain is worsening with deep breathing. She also did develop some discomfort in the right shoulder with restricted movement. On the day of her presentation patient states she felt sick had nausea vomiting and had diarrhea. Unsure of what was going on she elected to present to the emergency department. In the ED patient was found to be tachycardic with heart rates in the 130s. Given the pleuritic nature of the pain suspicion of possible PE was entertained underwent CT which was reported as being suboptimal. Was started on empiric enoxaparin and admitted to a monitored bed for further management [facility] Medical History Wears partial dentures Injury of head and neck Gastric reflux Encounter for transesophageal echo performed as part of open chest procedure History of echocardiogram History of stress test Tremor Retained suture Chest wall tenderness Fatigue Flu vaccine need Lower extremity edema History of coronary artery disease History of hypertension Left ankle pain Right hip pain Right groin pain Memory changes Left shoulder pain Cervical radiculopathy Cough Health care maintenance Right shoulder pain Therapeutic drug monitoring Osteoporosis Compression fracture of lumbar spine, non-traumatic Dysuria Dysuria Urinary frequency Acute back pain Personal history of colonic polyps GERD (gastroesophageal reflux disease) Hyperglycemia due to type 2 diabetes mellitus Wears glasses Diabetes Arthritis Anemia Non-smoker CPAP (continuous positive airway pressure) dependence Sleep apnea Shortness of breath on exertion Cardiology follow-up encounter Abdominal pain Osteoarthritis Congestive heart failure (CHF) Routine health maintenance Colon cancer screening Foreign body in stomach Seizure disorder Type 2 diabetes mellitus Diabetes mellitus type 2 in nonobese Obesity Urinary frequency Conversion disorder Obstructive sleep apnea Non-toxic goiter Essential (primary) hypertension RIGHT FOOT HEEL SPUR Atherosclerotic heart disease of [place] coronary artery without angina pectoris Rheumatoid arthritis Diabetes type 2, controlled Hives Seasonal allergies Hyperlipidemia Chronic diastolic CHF (congestive heart failure) Home Medications ?Medication ?Instructions ?Recorded ?Last Taken ?Type multivitamin 1 tab PO DAILY vitamin 05/20/19 12/16/22 History blood-glucose meter (True Metrix #1 ea 02/03/20 Unknown Rx Air Glucose Meter kit) calcium citrate 200 mg (950 mg) 200 mg PO DAILY supplement 05/21/20 12/16/22 History tablet disability placard #1 ea 06/27/20 Unknown Rx aspirin 81 mg tablet,delayed 81 mg PO DAILY heart 08/13/20 12/11/22 History release (Adult Low Dose Aspirin) clopidogrel 75 mg tablet See Rx Instructions .Route 08/20/22 12/16/22 Rx .COMPLEX heart #90 TABLETS denosumab 60 mg/mL subcutaneous 60 mg subcut [id number] #1 mL 12/11/22 Unknown Rx syringe (Prolia) divalproex 250 mg tablet,delayed 250 mg PO QPM seizure #90 tabs 02/11/23 Unknown Rx release divalproex 500 mg tablet,delayed 500 mg .Route .COMPLEX seizures 02/11/23 Unknown Rx release (Depakote) #90 tabs atorvastatin 80 mg tablet 80 mg PO QHS cholesterol #90 tabs 06/17/23 Unknown Rx blood sugar diagnostic (True #100 ea 06/17/23 Unknown Rx Metrix Glucose Test Strip) hydroxychloroquine 200 mg tablet See Rx Instructions .Route 06/17/23 Unknown Rx .COMPLEX immunosuppressant #180 tabs isosorbide mononitrate 60 mg 60 mg PO DAILY #90 tabs 06/17/23 Unknown Rx tablet,extended release 24 hr lancets 33 gauge #100 ea 06/17/23 Unknown Rx metoprolol tartrate 25 mg tablet 25 mg PO BID 3 months #180 tabs 06/17/23 Unknown Rx pantoprazole 40 mg tablet,delayed 40 mg PO DAILY stomach #90 tabs 06/17/23 Unknown Rx release sitagliptin phosphate 100 mg See Rx Instructions .Route 06/17/23 Unknown Rx tablet (Januvia) .COMPLEX diabetes #90 tabs rifaximin 550 mg tablet (Xifaxan) 550 mg PO TID 14 days #42 tabs 10/07/23 Unknown Rx folic acid 1 mg tablet 2 mg PO QDAY 10/26/23 Unknown History methotrexate sodium 2.5 mg tablet 12.5 mg PO QWEEK 10/26/23 Unknown History Allergy/AdvReac Type Severity Reaction Status Date / Time prednisone AdvReac Severe Hives Verified 11/15/23 10:07 Family History Grandmother Alcoholism Cancer Arthritis Mother Alcoholism Diabetes blood clots Hypertension Grandfather Heart disease Sister Thyroid disorder Other Breast cancer Cervical cancer Colon cancer Surgical History History of coronary artery bypass graft History of coronary artery bypass graft x 3 History of cardiac catheterization History of left heart catheterization (09/20/18) History of coronary artery stent placement (03/22/18) History of carpal tunnel surgery History of section H/O: hysterectomy Social History household members: none Smoking Status: Never smoker second hand exposure: No alcohol intake: current alcohol intake frequency: holidays/special occasions only substance use type: does not use what type of physical activity do you participate in: none ROS ROS Narrative GENERAL: denies fever, chills, night sweats, weight loss, anorexia HEENT: denies headache, sinus congestion, or drainage, dysphagia RESPIRATORY: dshortness of breath, dyspnea on exertion CARDIAC: chest pain, GASTROINTESTINAL: nausea, vomiting, GENITOURINARY: denies dysuria, urgency, frequency, EXTREMITY: denies swelling MUSCULOSKELETAL: Right shoulder pain NEUROLOGIC: denies focal numbness, weakness, tingling HEMATOLOGIC: denies easy bruising and/or hemorrhage INTEGUMENT: denies rashes PSYCHIATRIC: denies suicidal or homicidal ideation Vital Signs Vital Signs Vital Signs: 11/15/23 10:04 11/15/23 11:03 11/15/23 12:04 Temperature 98 F Temperature Source Temporal Pulse Rate 126 H 105 H Respiratory Rate 20 H 18 Blood Pressure 145/84 H 150/76 H Blood Pressure Mean 104 100 Pulse Ox 100 98 Oxygen Delivery Method Room Air Room Air Room Air 11/15/23 14:05 Temperature 97.1 F L Temperature Source Pulse Rate 99 Respiratory Rate 12 Blood Pressure 146/82 H Blood Pressure Mean 103 Pulse Ox 100 Oxygen Delivery Method Weight Weight: 86.319 kg Body Mass Index (BMI) 34.8 Physical Exam Narrative GENERAL: cooperative HEENT: Atraumatic; normocephalic EYES; Anicteric, Normal Conjunctiva NECK; supple, normal thyroid, RESPIRATORY: Diminished to auscultation CARDIOVASCULAR: Regular S1 S2, GI: soft, normoactive bowel sounds, : No Renal angle tenderness; EXTREMITIES: No edema, no clubbing, MUSCULOSKELETAL: Movement restricted in the right shoulder NEURO: Awake; no lateralizing signs. SKIN: No Rash PSYCH; Flat affect Results Lab / Micro Data 11/15/23 11:01 11/15/23 11:01 Labs: Laboratory Results - last 24 hr 11/15/23 11:01: WBC 8.9, RBC 3.66 L, Hgb 12.0, Hct 36.5 L, MCV 99.7 H, MCH 32.8 H, MCHC 32.9, RDW Std Deviation 47.8 H, RDW Coeff of [place] 13.0, Plt Count 159, MPV 11.4, Immature Gran % (Auto) 0.400, Neut % (Auto) 75.4 H, Lymph % (Auto) 15.0 L, [place] % (Auto) 8.2, Eos % (Auto) 0.8, Baso % (Auto) 0.2, Absolute Neuts (auto) 6.7, Absolute Lymphs (auto) 1.34, Nucleated RBC % 0, PT Cancelled, INR Cancelled, APTT Cancelled, Sodium 136, Potassium 4.5, Chloride 109 H, Carbon Dioxide 21.0, Anion Gap 6, BUN 26 H, Creatinine 1.04 H, Estim Creat Clear Calc 51.32, Est GFR (MDRD) Af Amer 67, Est GFR (MDRD) Non-Af 56 L, BUN/Creatinine Ratio 25.0 H, Glucose 140 H, Calcium 8.7, Magnesium 1.9, Troponin I High Sens 4 11/15/23 11:20: PT 14.1, INR 1.1, APTT 26.8 11/15/23 13:10: Troponin I High Sens 4 Imaging Radiology Impression Chest CTA 11/15/23 10:37 IMPRESSION: 1. The examination is limited due to nonoptimal contrast bolus timing. No definite evidence of pulmonary artery embolus. 2. Coronary artery calcifications and/or stents. Status post CABG. RECOMMENDATIONS: If there is persistent high clinical concern for pulmonary embolus, consider a ventilation scan or repeat CT pulmonary angiogram. Electronically Signed: Tim Jain DO at 12:33 EDT , Assessment & Plan Assessment/Plan (1) Chest pain: (2) Dyspnea on exertion: PLAN: Plan Patient is a 72-year-old lady with multiple comorbidities presenting with pleuritic chest pain in addition to multiple other nonspecific complaints. Admitted to a monitored bed for further management 1. Atypical chest pain ? Patient has underlying history of CAD with previous PCI CABG in December 2022 initial set of cardiac enzymes came back unremarkable. Patient described the pain as being pleuritic underwent CTA of the chest which was described as not optimal contrast bolus timing was however no definitive evidence of pulmonary embolism. Patient started empirically on Lovenox admitted to a monitored bed. As part of her management ordered D-dimer and bilateral venous duplex. If nondiagnostic and suspicious still remains patient may need to undergo either VQ scan or repeat CT angio 2. Right shoulder arthropathy ? Patient has history of chronic inflammatory arthritis do suspect exacerbation. Ordered MRI of the shoulder for subsequent evaluation 3. Diabetes mellitus type II -patient's oral hypoglycemics held. Placed on Accu-Cheks a.c. and at bedtime and covered with sliding scale insulin 4. Coronary artery disease ? With previous PCI and stenting in 2018 and CABG x 4 in December 2022. Patient remains on guideline directed medical therapy plan is to continue 5. Hypertension - Blood pressure controlled, home medications continued with dose adjustment as needed 6. Rheumatoid arthritis ? Patient is on methotrexate as well as hydroxychloroquine plan is to continue 7. GERD ? Patient is on PPI 8. Seizure disorder ? Patient is on valproic acid 9. Dyslipidemia -Patient is on statin therapy, continued at home dose 10. Class I obesity with BMI of 34.8 ? Weight loss advised 11.Obstructive sleep apnea ? Patient is on CPAP at night consistent use encouraged 12. Nonalcoholic fatty liver disease ? Patient is on rifaximin, continued, patient follows up with Dr. Mckinney as outpatient 13. DVT prophylaxis ? Patient is on empiric Lovenox with plans to discontinue following receipt of results of venous duplex Time spent in the patient's overall evaluation,decision-making process, review of diagnostic data, adjustment of management, discussion with other providers, nursing nursing and ancillary staff involved in patient's care documentation, 75 Minutes Advance planning; did discuss with the patient and family regarding advanced directives as well as CODE STATUS. Did explain the various scenarios involved ( FULL CODE, DNR CCA, DNR CCA with no intubation, and DNR CC and what each meant) patient elected remain full code with CPR and intubation if needed. Order was placed. Time spent on discussion 16 minutes. Charges/Coding Multi Select Codes Visit Charges Visit Charges: 51498 [address]ists' Procedures Procedures: 48501 Advncd Care Plan 30 Min
--- NOTE | 2023-11-15 14:14 | NURSING ---
PCU OBS KITTOE CP, TACHYCARDIA, HYPERTENSION
[2023-11-15 14:22] LABS: D-Dimer Quantitative (DVT/PE) 0.61 FEU/ug/m (0.27-0.49)
[2023-11-15 14:32] LABS: BNP,B-Type NATRIURETIC PEPTIDE 6.6 pg/mL (0-100)
[2023-11-15 15:20] VITALS: BMI 30.4
[2023-11-15] MEDS: oxyCODONE 5 MG Tablet PO (15:46)
[2023-11-15 15:47] LABS: Troponin-I HS 4 pg/mL (3.0-54.0)
[2023-11-15 15:48] VITALS: BP 140/68; PULSE 95; RESP 15; TEMP 36.5; O2SAT 100
[2023-11-15] MEDS: Enoxaparin 100 MG/ML Syringe 90 MG SC ×2 (16:10→21:07)
[2023-11-15] MEDS: Hydroxychloroquine 200 MG Tablet PO (16:57)
[2023-11-15] MEDS: Folic Acid 1 MG Tablet 2 MG PO (16:57)
[2023-11-15 17:18] LABS: Bedside Glucose 107 mg/dL (74-106)
[2023-11-15] MEDS: 0.9% Saline Lock 10 ML Syringe IV (17:45)
[2023-11-15] MEDS: Morphine 2 MG/ML Syringe IV ×2 (17:45→21:09)
[2023-11-15] MEDS: Divalproex Sodium 250 MG Tablet 1250 MG PO (21:06)
[2023-11-15 21:07] VITALS: BP 179/93; PULSE 103
[2023-11-15] MEDS: Metoprolol Tartrate 25 MG Tablet PO (21:07)
[2023-11-15] MEDS: Acetaminophen 500 MG Tablet 1000 MG PO (21:08)
[2023-11-15] MEDS: oxyCODONE 5 MG Tablet 10 MG PO (21:08)
[2023-11-15] MEDS: Atorvastatin Calcium 80 MG Tablet PO (21:08)
[2023-11-15 22:00] VITALS: BP 179/93; PULSE 100; RESP 16; TEMP 36.6; O2SAT 98
[2023-11-15 22:10] LABS: Bedside Glucose 124 mg/dL (74-106)
[2023-11-16] VITALS (7 sets, daily range): BP systolic 113–149; BP diastolic 71–87; PULSE 90–101; RESP 14–18; TEMP 36.6; O2SAT 96–99; BMI 30.6
[2023-11-16] MEDS: Morphine 2 MG/ML Syringe IV (05:22)
[2023-11-16] MEDS: oxyCODONE 5 MG Tablet 10 MG PO ×3 (05:23→21:32)
--- NOTE | 2023-11-16 05:55 | ECHOD_ITS ---
Reason For Study: CHEST PAIN Procedure This was a 2D Doppler, Color Flow transthoracic echocardiogram. Myocardial strain analysis was performed in this exam to aid in the assessment of cardiac function. Exam performed portable in patient room. Left Ventricle Normal LV size. The estimated ejection fraction is 65 %. Unable to assess diastolic dysfunction. No regional wall motion abnormalities noted. Right Ventricle Normal RV size. Normal systolic function. Atria Normal left atrium. Normal right atrium. No doppler evidence for ASD. Mitral Valve There is moderate to severe mitral annular calcification. There is no mitral valve stenosis. No mitral valve insufficiency. Tricuspid Valve There is no tricuspid stenosis. Mild tricuspid valve insufficiency. Pulmonary artery systolic pressure is 25 mmHg. Aortic Valve Trisinus/trileaflet aortic valve. There is no aortic stenosis. No aortic valve insufficiency. Pulmonic Valve There is no pulmonic valvular stenosis. Trivial pulmonic valve insufficiency. Great Vessels Normal aortic root. Pericardium/Pleural No pericardial effusion. MMode/2D Measurements & Calculations LVIDd: 3.3 cm IVSd: 1.9 cm LVOT diam: 2.0 cm LVIDs: 1.8 cm LVPWd: 1.3 cm LVOT area: 3.1 cm2 RVDd: 3.5 cm FS: 44.6 % Ao root diam: 3.2 cm LAV(MOD-bp): 55.2 ml LVAd ap4: 16.0 cm2 LAV(MOD-bp) Indexed: 31.1 ml/m2 LVLd ap4: 6.4 cm LAV(MOD-sp2): 58.3 ml EDV(MOD-sp4): 32.9 ml LAV(MOD-sp4): 50.4 ml EDV(sp4-el): 33.8 ml LVAs ap4: 8.8 cm2 LVLs ap4: 5.2 cm ESV(MOD-sp4): 12.8 ml ESV(sp4-el): 12.7 ml EF(MOD-sp4): 61.0 % EF(sp4-el): 62.5 % LVAd ap2: 15.9 cm2 SV(MOD-sp4): 20.1 ml SV(MOD-sp2): 17.8 ml LVLd ap2: 7.0 cm EDV(MOD-sp2): 29.3 ml EDV(sp2-el): 30.5 ml LVAs ap2: 8.7 cm2 LVLs ap2: 5.8 cm ESV(MOD-sp2): 11.4 ml ESV(sp2-el): 11.2 ml EF(MOD-sp2): 60.9 % SV(sp4-el): 21.1 ml LA dimension(2D): 4.0 cm LA A4 area: 18.7 cm2 RA A4 area: 12.3 cm2 TAPSE: 1.5 cm Time Measurements MV dec time: 0.27 sec Doppler Measurements & Calculations MV E max raul: 73.2 cm/sec Lat Peak E' Raul: 8.1 cm/sec Med Peak E' Raul: 7.8 cm/sec MV A max raul: 101.6 cm/sec E/E' lat: 9.0 E/E' med: 9.3 MV E/A: 0.72 Ao V2 max: 115.2 cm/sec LV V1 max: 96.2 cm/sec MV dec slope: 266.1 cm/sec2 Ao max P.3 mmHg LV V1 max P.7 mmHg Ao V2 mean: 84.0 cm/sec LV V1 mean P.3 mmHg Ao mean P.0 mmHg LV V1 mean: 73.8 cm/sec Ao V2 VTI: 23.5 cm LV V1 VTI: 18.3 cm AV (velocity ratio): 0.78 JOB(I,D): 2.4 cm2 JOB(V,D): 2.6 cm2 SV(LVOT): 57.0 ml PA V2 max: 88.1 cm/sec TR max raul: 225.3 cm/sec PA max PG (full): 1.5 mmHg TR max P.3 mmHg ECHO/Echo Complete Interpretation Summary The estimated ejection fraction is 65 %. Unable to assess diastolic dysfunction. Ordering Physician: Maurilio Bradford Referring Physician: Kannan Garcia Performed By: Misti Godinez RDCS
--- NOTE | 2023-11-16 05:55 | VDLE_ITS ---
Reason For Study: Chest Pain RIGHT LEFT GSV is normal. Unable to visualize Lt GSV. HX CABG. CFV is compressible, spontaneous, phasic, CFV is compressible, spontaneous, phasic, competent and demonstrates normal competent, and demonstrates normal augmentation. augmentation. FV is compressible, spontaneous, phasic, FV is compressible, spontaneous, phasic, competent and demonstrates normal competent and demonstrates normal augmentation. augmentation. POP V is compressible, spontaneous, phasic, POP V is compressible, spontaneous, phasic, competent and demonstrates normal competent and demonstrates normal augmentation. augmentation. T/P Trunk is compressible. T/P Trunk is compressible. PTV is compressible. PTV is compressible. RT PerV is compressible. LT PerV is compressible. Procedure This is a venous duplex using B-mode, color flow and spectral Doppler. Exam performed portable in patient room. The exam was diagnostic. A preliminary report was called and/or faxed to UN[facility] TRUST MANAGERKARINA Woodard. VL/Venous Duplex US - Jovani Extrem Interpretation Summary Deep veins of the bilateral lower extremities are patent and compressible segme ntally. There is no evidence of bilateral lower extremity deep vein thrombosis. The right great sap henous vein appears patent and compressible segmentally. Ordering Physician: Maurilio Bradford Referring Physician: Kannan Garcia Performed By: Wade Dimas RVT
[2023-11-16 06:40] LABS: Bedside Glucose 106 mg/dL (74-106)
[2023-11-16 07:16] LABS: Absolute Lymphocyte Count 1.49 X10^3/uL (0.83-4.51); Absolute Neutrophil Count 4.3 X10^3/uL (2.0-7.7); Basophil# 0.01 X10^3/uL; Basophil% 0.1 % (0-1); Eosinophil# 0.08 X10^3/uL; Eosinophils% 1.2 % (0-5); Hematocrit 34.7 % (37-47); Hemoglobin 11.5 g/dL (12.0-15.0); Lymphocyte # 1.49 X10^3/ul (0.83-4.51); Mean Corp Hgb Conc 33.1 g/dL (32-36); Mean Corpuscular Hgb 32.8 pg (27.0-32.0); Mean Corpuscular Volume 98.9 fL (81-99); Mean Platelet Vol. 11.5 fl (6.2-12.0); Monocyte# 0.94 X10^3/uL; Monocyte% 13.9 % (0-10); NRBC Flagged by Analyzer 0 % (0-5); Neutrophil # 4.25 X10^3/uL (2.7-7.7); Neutrophil % 62.7 % (47-70); Platelet Count 141 K/mm3 (150-450); RBC Distribution Width SD 47.1 fl (35.1-43.9); Red Blood Count 3.51 M/mm3 (4.2-5.4); White Blood Count 6.8 K/mm3 (4.4-11.0)
[2023-11-16 07:39] LABS: Anion Gap 6 (5-15); BUN 20 mg/dL (7-18); BUN/Creat Ratio 23.7 RATIO (10-20); Calcium,Total 8.5 mg/dL (8.5-10.1); Chloride 105 mmol/L (98-107); Creatinine, Serum 0.84 mg/dL (0.55-1.02); EST Glomerular Filtration Rate 71 mL/min (>60); Est Glom Filt Rate - Afr Amer 86 mL/min (>60); Estimated Creatinine Clearance 59.48 ml/min; Glucose 121 mg/dL (74-106); Magnesium 2.1 mg/dL (1.6-2.6); Potassium 4.1 mmol/L (3.5-5.1); Sodium Level 137 mmol/L (136-145)
[2023-11-16] MEDS: Folic Acid 1 MG Tablet 2 MG PO (08:14)
[2023-11-16] MEDS: Enoxaparin 100 MG/ML Syringe 90 MG SC (08:14)
[2023-11-16] MEDS: Pantoprazole Sodium 40 MG Tablet PO (08:16)
[2023-11-16] MEDS: Isosorbide Mononitrate 60 MG Tablet PO (08:16)
[2023-11-16] MEDS: Metoprolol Tartrate 25 MG Tablet PO ×2 (08:16→21:30)
[2023-11-16] MEDS: Multivitamins,Therapeutic Tablet 1 TABLET PO (08:17)
[2023-11-16] MEDS: Hydroxychloroquine 200 MG Tablet PO ×2 (08:17→16:18)
[2023-11-16] MEDS: Clopidogrel Bisulfate 75 MG Tablet PO (08:17)
[2023-11-16] MEDS: Aspirin E.C. 81 MG Tablet PO (08:17)
[2023-11-16] MEDS: LINAGLIPTIN 5 MG TABLET PO (08:17)
[2023-11-16] MEDS: Divalproex Sodium 250 MG Tablet 500 MG PO (08:19)
[2023-11-16] MEDS: Methotrexate 2.5 MG Tablet 12.5 MG PO (08:20)
[2023-11-16] MEDS: Morphine 4 MG/ML Syringe IV (10:12)
[2023-11-16] MEDS: Acetaminophen 500 MG Tablet 1000 MG PO ×2 (11:27→21:31)
[2023-11-16 11:54] LABS: Bedside Glucose 138 mg/dL (74-106)
--- NOTE | 2023-11-16 12:00 | MRI_ITS ---
STUDY: MRI RIGHT SHOULDER REASON FOR EXAM: Female, 72 years old. Right shoulder pain TECHNIQUE: Standardized fat and water weighted pulse sequences were obtained in all 3 orthogonal planes. COMPARISON: None. FINDINGS: Mild supraspinatus and infraspinatus tendinosis and peritendinitis but no macro tear. There is subscapularis tendinosis with tendon thickening, but without a demonstrated tendon tear. 8mm calcified body near the insertion of the subscapularis tendon. Normal teres minor tendon. Normal supraspinatus muscle. Normal infraspinatus muscle. Normal subscapularis muscle. Normal teres minor muscle. Normal glenohumeral articulation. Normal humeral head and visualized proximal humerus. Normal biceps labral complex. There is tendinosis with thickening of the biceps tendon, but without a demonstrated tear. Normal labrum. Normal capsulo- ligamentous complex. Normal rotator interval. There is mild osteoarthritis of the acromioclavicular articulation. There is a Type II morphology (curved), with a neutral orientation. There is no subacromial-subdeltoid bursal fluid. Normal visualized coracohumeral and coracoacromial ligaments. Normal quadrilateral space. Normal axillary space. Normal deltoid muscle. Normal trapezius muscle. MRI/Upper Ext Joint Only(Routine) IMPRESSION: 1. Mild supraspinatus and infraspinatus tendinosis and peritendinitis but no macro tear or muscular atrophy. 2. Severe subscapularis tendinosis with fraying of the distal tendon and an adjacent 8 mm calcified body. 3. Tendinosis of the arcuate segment long segment of the biceps tendon. 4. Mild acromioclavicular joint arthrosis with capsulitis. Electronically Signed: Gold Young MD at 14:00 EDT ,
--- NOTE | 2023-11-16 14:29 | CON.PCM.OR_ITS ---
HPI Consult Data Date of Consult: 11/16/23 HPI Narrative HPI Narrative: LACY ALVARADO, is a 72 F who presents with right shoulder pain. Insidious onset. The patient was admitted for chest pain. They have some mild shoulder pain no fevers chills no redness warmth or concern for infection from the hospitalist to call me today at about 2:25 PM. They are wondering about outpatient follow-up [facility] Medical History (Updated 11/16/23 @ 14:32 by Michael Delacruz MD) Shoulder pain Wears partial dentures Injury of head and neck Gastric reflux Encounter for transesophageal echo performed as part of open chest procedure History of echocardiogram History of stress test Tremor Retained suture Chest wall tenderness Fatigue Flu vaccine need Lower extremity edema History of coronary artery disease History of hypertension Left ankle pain Right hip pain Right groin pain Memory changes Left shoulder pain Cervical radiculopathy Cough Health care maintenance Right shoulder pain Therapeutic drug monitoring Osteoporosis Compression fracture of lumbar spine, non-traumatic Dysuria Dysuria Urinary frequency Acute back pain Personal history of colonic polyps GERD (gastroesophageal reflux disease) Hyperglycemia due to type 2 diabetes mellitus Wears glasses Diabetes Arthritis Anemia Non-smoker CPAP (continuous positive airway pressure) dependence Sleep apnea Shortness of breath on exertion Cardiology follow-up encounter Abdominal pain Osteoarthritis Congestive heart failure (CHF) Routine health maintenance Colon cancer screening Foreign body in stomach Seizure disorder Type 2 diabetes mellitus Diabetes mellitus type 2 in nonobese Obesity Urinary frequency Conversion disorder Obstructive sleep apnea Non-toxic goiter Essential (primary) hypertension RIGHT FOOT HEEL SPUR Atherosclerotic heart disease of [place] coronary artery without angina pectoris Rheumatoid arthritis Diabetes type 2, controlled Hives Seasonal allergies Hyperlipidemia Chronic diastolic CHF (congestive heart failure) Home Medications ?Medication ?Instructions ?Recorded ?Last Taken ?Type multivitamin 1 tab PO DAILY vitamin 05/20/19 12/16/22 History blood-glucose meter (True Metrix #1 ea 02/03/20 Unknown Rx Air Glucose Meter kit) calcium citrate 200 mg (950 mg) 200 mg PO DAILY supplement 05/21/20 12/16/22 History tablet disability placard #1 ea 06/27/20 Unknown Rx aspirin 81 mg tablet,delayed 81 mg PO DAILY heart 08/13/20 12/11/22 History release (Adult Low Dose Aspirin) clopidogrel 75 mg tablet See Rx Instructions .Route 08/20/22 12/16/22 Rx .COMPLEX heart #90 TABLETS denosumab 60 mg/mL subcutaneous 60 mg subcut [id number] #1 mL 12/11/22 Unknown Rx syringe (Prolia) divalproex 250 mg tablet,delayed 250 mg PO QPM seizure #90 tabs 02/11/23 Unknown Rx release divalproex 500 mg tablet,delayed 500 mg .Route .COMPLEX seizures 02/11/23 Unknown Rx release (Depakote) #90 tabs atorvastatin 80 mg tablet 80 mg PO QHS cholesterol #90 tabs 06/17/23 Unknown Rx blood sugar diagnostic (True #100 ea 06/17/23 Unknown Rx Metrix Glucose Test Strip) hydroxychloroquine 200 mg tablet See Rx Instructions .Route 06/17/23 Unknown Rx .COMPLEX immunosuppressant #180 tabs isosorbide mononitrate 60 mg 60 mg PO DAILY #90 tabs 06/17/23 Unknown Rx tablet,extended release 24 hr lancets 33 gauge #100 ea 06/17/23 Unknown Rx metoprolol tartrate 25 mg tablet 25 mg PO BID heart 3 months #180 06/17/23 Unknown Rx tabs pantoprazole 40 mg tablet,delayed 40 mg PO DAILY stomach #90 tabs 06/17/23 Unknown Rx release sitagliptin phosphate 100 mg See Rx Instructions .Route 06/17/23 Unknown Rx tablet (Januvia) .COMPLEX diabetes #90 tabs folic acid 1 mg tablet 2 mg PO QDAY 10/26/23 Unknown History methotrexate sodium 2.5 mg tablet 12.5 mg PO QWEEK 10/26/23 Unknown History Allergy/AdvReac Type Severity Reaction Status Date / Time prednisone AdvReac Severe Hives Verified 11/15/23 10:07 Family History Grandmother Alcoholism Cancer Arthritis Mother Alcoholism Diabetes blood clots Hypertension Grandfather Heart disease Sister Thyroid disorder Other Breast cancer Cervical cancer Colon cancer Surgical History History of coronary artery bypass graft History of coronary artery bypass graft x 3 History of cardiac catheterization History of left heart catheterization (09/20/18) History of coronary artery stent placement (03/22/18) History of carpal tunnel surgery History of section H/O: hysterectomy Social History (Updated 11/15/23 @ 15:30 by Shira Torrez) household members: none housing: apartment Smoking Status: Never smoker second hand exposure: No alcohol intake: current alcohol intake frequency: holidays/special occasions only substance use type: does not use what type of physical activity do you participate in: none Vital Signs Vital Signs Vital Signs: 11/15/23 15:48 11/15/23 16:16 11/15/23 21:07 Temperature 97.7 F L Temperature Source Oral Pulse Rate 95 103 H Respiratory Rate 15 Respiratory Effort Normal Non-Labored Respiratory Depth Normal Respiratory Pattern Normal Blood Pressure 140/68 H 179/93 H Blood Pressure Mean 92 Blood Pressure Source Monitor Blood Pressure Position Semi-Fowlers Blood Pressure Location Left Arm Pulse Ox 100 Oxygen Delivery Method Room Air Room Air 11/15/23 21:42 11/15/23 22:00 11/16/23 03:15 Temperature 97.8 F Temperature Source Temporal Pulse Rate 100 Respiratory Rate 16 Respiratory Effort Normal Non-Labored Normal Non-Labored Respiratory Depth Normal Normal Respiratory Pattern Normal Normal Blood Pressure 179/93 H Blood Pressure Mean 121 Blood Pressure Source Monitor Blood Pressure Position Semi-Fowlers Blood Pressure Location Left Arm Pulse Ox 98 Oxygen Delivery Method Room Air Room Air Room Air 11/16/23 04:00 11/16/23 08:16 11/16/23 09:15 Temperature 97.8 F 97.9 F Temperature Source Temporal Temporal Pulse Rate 92 101 H 94 Respiratory Rate 16 18 Respiratory Effort Respiratory Depth Respiratory Pattern Blood Pressure 134/80 H 149/87 H 144/83 H Blood Pressure Mean 98 103 Blood Pressure Source Monitor Monitor Blood Pressure Position Semi-Fowlers Semi-Fowlers Blood Pressure Location Left Arm Left Arm Pulse Ox 99 99 Oxygen Delivery Method Room Air Room Air Weight Weight: 167 lb 8.821 oz Body Mass Index (BMI) 30.6 Lab / Micro Data 11/16/23 06:56 11/16/23 06:56 Labs: Laboratory Results - last 24 hr 11/15/23 11:01: B-Natriuretic Peptide 6.6 11/15/23 15:10: Troponin I High Sens 4 11/15/23 16:52: POC Glucose 107 H 11/15/23 21:02: POC Glucose 124 H 11/16/23 06:16: POC Glucose 106 11/16/23 06:56: WBC 6.8, RBC 3.51 L, Hgb 11.5 L, Hct 34.7 L, MCV 98.9, MCH 32.8 H, MCHC 33.1, RDW Std Deviation 47.1 H, RDW Coeff of [place] 13.0, Plt Count 141 L, MPV 11.5, Immature Gran % (Auto) 0.100, Neut % (Auto) 62.7, Lymph % (Auto) 22.0, [place] % (Auto) 13.9 H, Eos % (Auto) 1.2, Baso % (Auto) 0.1, Absolute Neuts (auto) 4.3, Absolute Lymphs (auto) 1.49, Nucleated RBC % 0, Sodium 137, Potassium 4.1, Chloride 105, Carbon Dioxide 26.0, Anion Gap 6, BUN 20 H, Creatinine 0.84, Estim Creat Clear Calc 59.48, Est GFR (MDRD) Af Amer 86, Est GFR (MDRD) Non-Af 71, B UN/Creatinine Ratio 23.7 H, Glucose 121 H, Calcium 8.5, Phosphorus 4.0, Magnesium 2.1 11/16/23 11:24: POC Glucose 138 H Micro: Microbiology 11/16/23 09:05 Mucosa - Nose Coronavirus COVID-19 PCR - Final 11/16/23 09:05 Mucosa - Nose Respiratory Panel (PCR) - Final Imaging Radiology Impression Echocardiogram 11/16/23 05:55 Interpretation Summary The estimated ejection fraction is 65 %. Unable to assess diastolic dysfunction. Ordering Physician: Maurilio Bradford Referring Physician: Kannan Garcia Performed By: Misti Godinez RDCS Venous Doppler Study 11/16/23 05:55 Interpretation Summary Deep veins of the bilateral lower extremities are patent and compressible segmentally. There is no evidence of bilateral lower extremity deep vein thrombosis. The right great saphenous vein appears patent and compressible segmentally. Ordering Physician: Maurilio Bradford Referring Physician: Kannan Garcia Performed By: Wade Dimas, [facility] Upper Extremity MRI 11/16/23 12:00 IMPRESSION: 1. Mild supraspinatus and infraspinatus tendinosis and peritendinitis but no macro tear or muscular atrophy. 2. Severe subscapularis tendinosis with fraying of the distal tendon and an adjacent 8 mm calcified body. 3. Tendinosis of the arcuate segment long segment of the biceps tendon. 4. Mild acromioclavicular joint arthrosis with capsulitis. Electronically Signed: Gold Young MD at 14:00 EDT , Assessment & Plan Assessment/Plan (1) Shoulder pain: PLAN: 72-year-old female with shoulder pain in the absence of concerning clinical features or signs of an infection or other acute process I recommend outpatient follow-up for tendinitis/tendinosis on MRI. In the meantime can try rest ice anti-inflammatories activity modifications and physical therapy and then see me as an outpatient to further assess and discuss other possible treatment options. Hospitalist understands and agrees with the plan no further questions or concerns.
--- NOTE | 2023-11-16 14:36 | CASEMGMT ---
Met with patient to complete ROJAS form. ROJAS form explained to patient who voiced understanding and signed form. Original form placed in pt?s chart and copy provided to patient. Lily Vaca, Discharge Planning Asst
--- NOTE | 2023-11-16 16:00 | CHAPLAIN ---
Type of Pastoral Visit _x__ Initial Visit ___ Follow-up Visit ___ On-call Visit ___ General Patient Visit ___ Spiritual Assessment ___ Family Conference ___ Bereavement ___ Rapid Response ___ Code Blue ___ Other (describe below) Pastoral Care Referral From _x__ Patient ___ Family ___ Nurse ___ Physician ___ Experimental [employer] Spacecraft ___ Dye Can Operator ___ Other (describe below) Sacrament/Intervention _x__ Active listening ___ Anointing ___ Jewish ___ Bereavement ___ Communion ___ Wendi exploration ___ ___ Life review _x__ Prayer ___ Reconciliation ___ Sacrament of Sick ___ Supportive presence ___ Wedding ___ Other (describe below) Pastoral Comments patient has family members visiting; pt has been seen in previous admissions; pt acknowledges that she needs to slow down and that this is a wake up call; pt declares that she does not want to come to the hospital again; family members agree with her statement about slowing down and want her to take her own advice; pt and family welcome prayer support at this time; pt says that she has no other needs at this time
[2023-11-16] MEDS: Arthritis Pain Compound 60 CLICK TUBE TOPICAL ×2 (16:18→22:30)
[2023-11-16 17:04] LABS: Bedside Glucose 123 mg/dL (74-106)
--- NOTE | 2023-11-16 18:08 | PCM.PN.HOSP ---
Reason for Visit Reason for Visit: Diagnoses Pain in unspecified shoulder (11/15/23) Other forms of dyspnea (11/15/23) Chest pain, unspecified (11/15/23) Subjective Subjective After discussion patient reports her pain is primarily in her right shoulder with movement and will radiate towards her chest, pain around her chest is worse with inspiration and movement of her arm, has been having some shortness of breath, slightly better today Objective Data Objective Data Vital Signs: Vital Signs Temp Pulse Resp BP Pulse Ox O2 Del Method 97.9 F 94 18 144/83 H 97 Room Air 11/16/23 09:15 11/16/23 09:15 11/16/23 09:15 11/16/23 09:15 11/16/23 15:23 11/16/23 15:23 Oxygen Delivery Method Room Air Weight: 76 kg Body Mass Index (BMI) 30.6 Intake & Output: Intake and Output for Last 24 Hours 11/14/23 11/15/23 11/16/23 23:59 23:59 23:59 Intake Total 120 / 120 Balance 120 / 120 Lab / Micro Data 11/16/23 06:56 11/16/23 06:56 Labs: Laboratory Results - last 24 hr 11/15/23 21:02: POC Glucose 124 H 11/16/23 06:16: POC Glucose 106 11/16/23 06:56: WBC 6.8, RBC 3.51 L, Hgb 11.5 L, Hct 34.7 L, MCV 98.9, MCH 32.8 H, MCHC 33.1, RDW Std Deviation 47.1 H, RDW Coeff of [place] 13.0, Plt Count 141 L, MPV 11.5, Immature Gran % (Auto) 0.100, Neut % (Auto) 62.7, Lymph % (Auto) 22.0, [place] % (Auto) 13.9 H, Eos % (Auto) 1.2, Baso % (Auto) 0.1, Absolute Neuts (auto) 4.3, Absolute Lymphs (auto) 1.49, Nucleated RBC % 0, Sodium 137, Potassium 4.1, Chloride 105, Carbon Dioxide 26.0, Anion Gap 6, BUN 20 H, Creatinine 0.84, Estim Creat Clear Calc 59.48, Est GFR (MDRD) Af Amer 86, Est GFR (MDRD) Non-Af 71, BUN/Creatinine Ratio 23.7 H, Glucose 121 H, Calcium 8.5, Phosphorus 4.0, Magnesium 2.1 11/16/23 11:24: POC Glucose 138 H 11/16/23 16:22: POC Glucose 123 H Micro: Microbiology 11/16/23 09:05 Mucosa - Nose Coronavirus COVID-19 PCR - Final 11/16/23 09:05 Mucosa - Nose Respiratory Panel (PCR) - Final Radiography Diagnostic Testing: Radiology Impression Echocardiogram 11/16/23 05:55 Interpretation Summary The estimated ejection fraction is 65 %. Unable to assess diastolic dysfunction. Ordering Physician: Maurilio Bradford Referring Physician: Kannan Garcia Performed By: Misti Godinez RDCS Venous Doppler Study 11/16/23 05:55 Interpretation Summary Deep veins of the bilateral lower extremities are patent and compressible segmentally. There is no evidence of bilateral lower extremity deep vein thrombosis. The right great saphenous vein appears patent and compressible segmentally. Ordering Physician: Maurilio Bradford Referring Physician: Kannan Garcia Performed By: Wade Dimas RVT Upper Extremity MRI 11/16/23 12:00 IMPRESSION: 1. Mild supraspinatus and infraspinatus tendinosis and peritendinitis but no macro tear or muscular atrophy. 2. Severe subscapularis tendinosis with fraying of the distal tendon and an adjacent 8 mm calcified body. 3. Tendinosis of the arcuate segment long segment of the biceps tendon. 4. Mild acromioclavicular joint arthrosis with capsulitis. Electronically Signed: Gold Young MD at 14:00 EDT Reading Location ID and State: [address] [place] [address] Tel , Service support , Physical Exam Narrative General: Alert, oriented, no apparent distress HEENT: Atraumatic, normocephalic Eyes: Anicteric, normal conjunctiva, extraocular movements grossly intact Neck: Supple Respiratory: Clear to auscultation bilaterally, normal respiratory effort Cardiovascular: Regular rate and rhythm GI: Soft, nontender, nondistended Extremities: No edema Musculoskeletal: Pain on movement of right shoulder in all directions, some tenderness primarily when palpating anteriorly over shoulder with no tenderness in left shoulder Neuro: No overt focal neurological deficits Skin: No rashes appreciated Psych: Cooperative Assessment & Plan Assessment/Plan (1) Shoulder pain: PLAN: Plan #Right shoulder pain- tendinitis/tendinosis -Seen on MRI -Discussed with Ortho, patient without elevated white blood cell count, afebrile -Pain control and physical therapy -Plan will be outpatient Ortho follow-up unless any clinical change -Initially there was concerns for chest pain especially given history. Presently symptoms and exam consistent with right shoulder tendinitis and tendinosis -CTA was negative for PE but suboptimal however patient vitally stable. Pain more consistent with shoulder pathology and pathology was found on MRI #Hx CAD s/p CABG -Continue metoprolol, Imdur, statin, Plavix, aspirin #hx RA -on methotrexate and hydroxychloroquine # Seizure disorder -Continue Depakote -Will check Depakote level #Type 2 diabetes mellitus -Glucose checks and sliding scale insulin #GERD -Continue PPI #DVT ppx: Lovenox subcu Lenka Davis MD Time spent in the patient's overall evaluation,decision-making process, review of diagnostic data, adjustment of management, discussion with other providers, nursing nursing and ancillary staff involved in patient's care documentation, 36 minutes Charges/Coding Visit Charges Inpatient E&M: 88233 Subs Hosp L2
[2023-11-16 18:20] LABS: Hemoglobin A1c 6.3 % (3.8-5.6)
[2023-11-16] MEDS: Atorvastatin Calcium 80 MG Tablet PO (21:31)
[2023-11-16] MEDS: Divalproex Sodium 250 MG Tablet 1250 MG PO (21:31)
[2023-11-16] MEDS: BENZOCAINE/MENTHOL 1 LOZENGE MUCOUS MEM (21:32)
[2023-11-16 22:46] LABS: Bedside Glucose 84 mg/dL (74-106)
[2023-11-17] VITALS (10 sets, daily range): BP systolic 94–118; BP diastolic 51–68; PULSE 75–89; RESP 15–18; TEMP 36.1–37; O2SAT 93–99; BMI 30.5
[2023-11-17] MEDS: oxyCODONE 5 MG Tablet 10 MG PO (02:34)
[2023-11-17] MEDS: Acetaminophen 500 MG Tablet 1000 MG PO ×3 (06:07→20:56)
[2023-11-17] MEDS: BENZOCAINE/MENTHOL 1 LOZENGE MUCOUS MEM (06:08)
[2023-11-17 06:09] LABS: Absolute Lymphocyte Count 1.45 X10^3/uL (0.83-4.51); Absolute Neutrophil Count 4.8 X10^3/uL (2.0-7.7); Basophil# 0.01 X10^3/uL; Basophil% 0.1 % (0-1); Eosinophil# 0.07 X10^3/uL; Hematocrit 30.6 % (37-47); Lymphocyte # 1.45 X10^3/ul (0.83-4.51); Lymphocyte % 20.3 % (19-41); Mean Corp Hgb Conc 32.7 g/dL (32-36); Mean Corpuscular Hgb 32.6 pg (27.0-32.0); Mean Corpuscular Volume 99.7 fL (81-99); Mean Platelet Vol. 11.3 fl (6.2-12.0); Monocyte# 0.74 X10^3/uL; Monocyte% 10.4 % (0-10); NRBC Flagged by Analyzer 0 % (0-5); Neutrophil # 4.82 X10^3/uL (2.7-7.7); Neutrophil % 67.6 % (47-70); Platelet Count 145 K/mm3 (150-450); RBC Distribution Width CV 12.9 % (11.6-14.6); RBC Distribution Width SD 46.5 fl (35.1-43.9); Red Blood Count 3.07 M/mm3 (4.2-5.4); White Blood Count 7.1 K/mm3 (4.4-11.0)
[2023-11-17 06:19] LABS: Bedside Glucose 101 mg/dL (74-106)
[2023-11-17 06:35] LABS: Valproic Acid (Depakene) Level 131 ug/mL (50-100)
[2023-11-17 06:37] LABS: Anion Gap 5 (5-15); BUN 26 mg/dL (7-18); BUN/Creat Ratio 25.2 RATIO (10-20); Calcium,Total 8.5 mg/dL (8.5-10.1); Chloride 105 mmol/L (98-107); Creatinine, Serum 1.03 mg/dL (0.55-1.02); EST Glomerular Filtration Rate 56 mL/min (>60); Est Glom Filt Rate - Afr Amer 68 mL/min (>60); Estimated Creatinine Clearance 48.44 ml/min; Glucose 119 mg/dL (74-106); Potassium 4.2 mmol/L (3.5-5.1); Sodium Level 136 mmol/L (136-145)
[2023-11-17] MEDS: Folic Acid 1 MG Tablet 2 MG PO (08:38)
[2023-11-17] MEDS: Pantoprazole Sodium 40 MG Tablet PO (08:39)
[2023-11-17] MEDS: Aspirin E.C. 81 MG Tablet PO (08:39)
[2023-11-17] MEDS: Multivitamins,Therapeutic Tablet 1 TABLET PO (08:39)
[2023-11-17] MEDS: Enoxaparin 40 MG/0.4 ML Syringe SC (08:40)
[2023-11-17] MEDS: Clopidogrel Bisulfate 75 MG Tablet PO (08:40)
[2023-11-17] MEDS: Divalproex Sodium 250 MG Tablet 500 MG PO (08:40)
[2023-11-17] MEDS: LINAGLIPTIN 5 MG TABLET PO (08:40)
[2023-11-17] MEDS: Arthritis Pain Compound 60 CLICK TUBE TOPICAL ×2 (08:41→20:58)
[2023-11-17 11:36] LABS: Bedside Glucose 146 mg/dL (74-106)
[2023-11-17 12:41] LABS: Erythrocyte Sedimentation Rate 19 mm/hr (0-30)
[2023-11-17 13:15] LABS: AST(SGOT) 10 U/L (15-37); Alanine Aminotransfer ALT/SGPT 14 U/L (13-56); Albumin, Serum 2.6 g/dL (3.2-5.0); Alkaline Phosphatase 50 U/L (45-117); Bilirubin, Direct 0.11 mg/dL (0.00-0.30); Globulin 3.7 g/dL (2.2-4.2); Protein, Total 6.3 g/dL (6.4-8.2)
[2023-11-17 13:39] LABS: Procalcitonin 0.08 ng/mL (0.00-0.09)
--- NOTE | 2023-11-17 15:06 | PN.ORTHO_ITS ---
Subjective Subjective Talk to Lenka Davis today at 3 PM for about 10 minutes on the phone. Patient apparently had an episode of low blood pressures. They had originally been seen for some shoulder pain and chest pain pulmonary embolism scan was negative though suboptimal. There is also a lower extremity DVT ultrasound that was negative. The patient has not had any fevers though they do have some elevated inflammatory markers the white blood cell count is also not elevated. At this point it is an undifferentiated cause or source of hypotension in this patient wondering if it could be from the shoulder. Apparently according to the physician who called me the range of motion actively is to at least 45 degrees with pain beyond that Objective Data Objective Data Vital Signs: Vital Signs Temp Pulse Resp BP Pulse Ox O2 Del Method 97.7 F L 75 18 96/52 L 95 Room Air 11/17/23 10:31 11/17/23 10:31 11/17/23 10:31 11/17/23 10:31 11/17/23 10:31 11/17/23 10:31 Oxygen Delivery Method Room Air Weight: 167 lb 1.766 oz Body Mass Index (BMI) 30.5 Intake & Output: Intake and Output for Last 24 Hours 11/15/23 11/16/23 11/17/23 23:59 23:59 23:59 Intake Total 120 / 120 685 / 685 Balance 120 / 120 685 / 685 Lab / Micro Data 11/17/23 05:41 11/17/23 05:41 Labs: Laboratory Results - last 24 hr 11/16/23 06:56: Hemoglobin A1c 6.3 H 11/16/23 16:22: POC Glucose 123 H 11/16/23 22:27: POC Glucose 84 11/17/23 05:41: WBC 7.1, RBC 3.07 L, Hgb 10.0 L, Hct 30.6 L, MCV 99.7 H, MCH 32.6 H, MCHC 32.7, RDW Std Deviation 46.5 H, RDW Coeff of [place] 12.9, Plt Count 145 L, MPV 11.3, Immature Gran % (Auto) 0.600, Neut % (Auto) 67.6, Lymph % (Auto) 20.3, [place] % (Auto) 10.4 H, Eos % (Auto) 1.0, Baso % (Auto) 0.1, Absolute Neuts (auto) 4.8, Absolute Lymphs (auto) 1.45, Nucleated RBC % 0, ESR 19, Sodium 136, Potassium 4.2, Chloride 105, Carbon Dioxide 26.0, Anion Gap 5, BUN 26 H, C reatinine 1.03 H, Estim Creat Clear Calc 48.44, Est GFR (MDRD) Af Amer 68, Est GFR (MDRD) Non-Af 56 L, BUN/Creatinine Ratio 25.2 H, Glucose 119 H, Calcium 8.5, Total Bilirubin 0.30, Direct Bilirubin 0.11, AST 10 L, ALT 14, Alkaline Phosphatase 50, C-React Prot Ext Range 161.00 H, Total Protein 6.3 L, Albumin 2.6 L, Globulin 3.7, Valproic Acid 131 H 11/17/23 06:01: POC Glucose 101 11/17/23 11:18: POC Glucose 146 H 11/17/23 12:48: Ammonia 41.0 H, Procalcitonin 0.08 Micro: Microbiology 11/16/23 09:05 Mucosa - Nose Coronavirus COVID-19 PCR - Final 11/16/23 09:05 Mucosa - Nose Respiratory Panel (PCR) - Final Assessment & Plan Assessment/Plan (1) Shoulder pain: PLAN: 72-year-old female with hypotension of an unknown cause. Personally in looking at the MRI there is some mild muscle streaking and edema there but no obvious joint effusion the radiologist did not comment on any concerns for infection specifically. I have relatively low suspicion that myositis this mild could be causing these low pressures and a sepsis-like picture but I do suggest that broad differential diagnosis here would be held for hypotension of an unknown cause certainly an infection could be causing this but patient does not have any fevers or white count and there has not been yet to full infectious workup I would suggest at least a urinalysis and blood cultures and to consider starting broad-spectrum IV antibiotics given the low pressures. This is not a surgical problem as there is no fluid collection to drain or obvious septic joint no effusion on the MRI but I think it is reasonable to consider a broad- spectrum IV antibiotics if there is a concern here for infection. If there is any further concerns or questions then please reach out to soon as possible.
--- NOTE | 2023-11-17 16:26 | PCM.PN.HOSP ---
Reason for Visit Reason for Visit: Diagnoses Pain in unspecified shoulder (11/15/23) Other forms of dyspnea (11/15/23) Chest pain, unspecified (11/15/23) Subjective Subjective Patient still having pain in right shoulder though it is slightly better than yesterday but still somewhat limited mobility, feeling in chest is also improving however today patient is increasingly tired and does not feel well Objective Data Objective Data Vital Signs: Vital Signs Temp Pulse Resp BP Pulse Ox O2 Del Method 97.9 F 82 16 106/62 93 Room Air 11/17/23 15:00 11/17/23 15:00 11/17/23 15:00 11/17/23 15:00 11/17/23 15:20 11/17/23 15:09 Oxygen Delivery Method Room Air Weight: 75.8 kg Body Mass Index (BMI) 30.5 Intake & Output: Intake and Output for Last 24 Hours 11/15/23 11/16/23 11/17/23 23:59 23:59 23:59 Intake Total 120 / 120 685 / 685 Balance 120 / 120 685 / 685 Lab / Micro Data 11/17/23 05:41 11/17/23 05:41 Labs: Laboratory Results - last 24 hr 11/16/23 06:56: Hemoglobin A1c 6.3 H 11/16/23 16:22: POC Glucose 123 H 11/16/23 22:27: POC Glucose 84 11/17/23 05:41: WBC 7.1, RBC 3.07 L, Hgb 10.0 L, Hct 30.6 L, MCV 99.7 H, MCH 32.6 H, MCHC 32.7, RDW Std Deviation 46.5 H, RDW Coeff of [place] 12.9, Plt Count 145 L, MPV 11.3, Immature Gran % (Auto) 0.600, Neut % (Auto) 67.6, Lymph % (Auto) 20.3, [place] % (Auto) 10.4 H, Eos % (Auto) 1.0, Baso % (Auto) 0.1, Absolute Neuts (auto) 4.8, Absolute Lymphs (auto) 1.45, Nucleated RBC % 0, ESR 19, Sodium 136, Potassium 4.2, Chloride 105, Carbon Dioxide 26.0, Anion Gap 5, BUN 26 H, Creatinine 1.03 H, Estim Creat Clear Calc 48.44, Est GFR (MDRD) Af Amer 68, Est GFR (MDRD) Non-Af 56 L, BUN/Creatinine Ratio 25.2 H, Glucose 119 H, Calcium 8.5, Total Bilirubin 0.30, Direct Bilirubin 0.11, AST 10 L, ALT 14, Alkaline Phosphatase 50, C-React Prot Ext Range 161.00 H, Total Protein 6.3 L, Albumin 2.6 L, Globulin 3.7, Valproic Acid 131 H 11/17/23 06:01: POC Glucose 101 11/17/23 11:18: POC Glucose 146 H 11/17/23 12:48: Ammonia 41.0 H, Procalcitonin 0.08 Micro: Microbiology 11/16/23 09:05 Mucosa - Nose Coronavirus COVID-19 PCR - Final 11/16/23 09:05 Mucosa - Nose Respiratory Panel (PCR) - Final Physical Exam Narrative General: A little bit tired but wakes up and answers questions appropriately, oriented, no apparent distress HEENT: Atraumatic, normocephalic Eyes: Anicteric, normal conjunctiva, extraocular movements grossly intact Neck: Supple Respiratory: Clear to auscultation bilaterally, normal respiratory effort Cardiovascular: Regular rate and rhythm GI: Soft, nontender, nondistended Extremities: No edema Musculoskeletal: Pain on movement of right shoulder in all directions, tenderness on palpation improving Neuro: No overt focal neurological deficits Skin: No rashes appreciated Psych: Cooperative Assessment & Plan Assessment/Plan (1) Shoulder pain: PLAN: Plan #Decreased BP and increasing tiredness -Patient had been running 130s to 170s with her systolic blood pressure however slowly down trended and overnight and into this morning systolic in the 90s and patient more tired than usual, BP meds held this a.m. -ESR and Pro-Camilo within normal limits however CRP is elevated which is of unclear significance -Discussed with Ortho and films reviewed, does not appear patient has effusion or other infectious process and shoulder that would cause low blood pressure/systemic process -It is certainly possible pain medication is causing or contributing to this however patient had been receiving pain medication already and blood pressure did not drop until overnight, will decrease pain medication and obtain blood and urine cultures -Did have mildly elevated ammonia's will start lactulose as well -Per documentation patient has history of LINA, will obtain ABG -Additionally patient does have elevated Depakote level at 131 which could contribute to her blood pressure and mental status, given that she has epilepsy I am hesitant to adjust this medication without guidance of neurology- will consult neurology to further assist with her antiepileptic medication as this may be due to medication side effects #Right shoulder pain- tendinitis/tendinosis -Seen on MRI -Discussed with Ortho, patient without elevated white blood cell count, afebrile -Pain control and physical therapy -Plan will be outpatient Ortho follow-up unless any clinical change -Initially there was concerns for chest pain especially given history. Presently symptoms and exam consistent with right shoulder tendinitis and tendinosis -CTA was negative for PE but suboptimal however patient vitally stable. Pain more consistent with shoulder pathology and pathology was found on MRI -11/16: Afebrile, white blood cell count within normal limits but low BP and elevated CRP, discussed with Ortho, no significant effusion and it was suggested to explore other potential infectious etiologies, workup as above, hold off on empiric antibiotics unless patient worsens or cultures are positive. Additionally patient be seen by PT/OT #Hx CAD s/p CABG -Continue metoprolol, Imdur, statin, Plavix, aspirin -11/16: Decrease metoprolol with holding parameters, Imdur held, continue statin, Plavix, aspirin, chest pain the patient had on admission actually seem to be shoulder pain would radiate towards her chest when she moved her arm, troponins negative on presentation, pain is improving #macrocytic anemia -Does appear to be chronic and quite variable, no evidence of blood loss, repeat in a.m. -Continue folic acid #hx RA -on methotrexate and hydroxychloroquine -11/16: Follows outpatient, does have elevation in CRP with normal ESR and Pro-Camilo, unclear significance, management workup as above # Seizure disorder -Continue Depakote -Will check Depakote level -11/16: Unclear if blood pressure and increasing tiredness are due to elevated Depakote level, given her diagnosis of epilepsy I am hesitant to adjust her medications without the guidance of neurology's will consult neurology as this may be a side effect of her antiepileptic medications #Type 2 diabetes mellitus -Glucose checks and sliding scale insulin -11/16: Relatively well-controlled on Tradjenta and sliding scale #GERD -Continue PPI #DVT ppx: Lovenox subcu Lenka Davis MD Time spent in the patient's overall evaluation,decision-making process, review of diagnostic data, adjustment of management, discussion with other providers, nursing nursing and ancillary staff involved in patient's care documentation, 39 minutes Charges/Coding Visit Charges Inpatient E&M: 62916 Subs Hosp L2
[2023-11-17] MEDS: Hydroxychloroquine 200 MG Tablet PO (17:01)
[2023-11-17 17:18] LABS: Bedside Glucose 129 mg/dL (74-106)
[2023-11-17] MEDS: Metoprolol Tartrate 25 MG Tablet 12.5 MG PO (20:54)
[2023-11-17] MEDS: Lactulose 20 GM/30 ML UDC PO (20:54)
[2023-11-17] MEDS: Divalproex Sodium 250 MG Tablet 1250 MG PO (20:57)
[2023-11-17] MEDS: Atorvastatin Calcium 80 MG Tablet PO (20:58)
--- NOTE | 2023-11-17 21:11 | CPS ---
ABG was attempted and missed by RT Pt is alert and oriented x3 and is no longer lethargic, RN AWARE
[2023-11-17 21:27] LABS: Bacteria 0 SEEN /hpf (None Seen); Mucous, Urine 0 SEEN /hpf (<or=2+); Red Blood Cells-Urine 0 SEEN /hpf (0-5); Squamous Epithelial Cells - UA 0 SEEN /hpf (5-10)
[2023-11-17 21:28] LABS: Bedside Glucose 94 mg/dL (74-106)
[2023-11-17 21:40] LABS: Color, Urine Yellow (Yellow); Glucose, Dipstick Normal (Normal); Ketone-Dipstick Negative (Negative); Leukocyte Esterase-Dipstick 25 /ul (Negative); Nitrite-Dipstick Negative (Negative); Occult Blood-Urine Negative /ul (Negative); Protein-Dipstick 15 mg/dl (Negative); Urine Bilirubin Dipstick Negative (Negative); Urine Clarity Clear (Clear); Urine Urobilinogen Normal (Normal)
[2023-11-17 21:48] LABS: White Blood Cells 0-5 SEEN /hpf (0-5)
[2023-11-18 00:20] VITALS: BP 145/85; PULSE 72; RESP 18; TEMP 36.3; O2SAT 96
[2023-11-18] MEDS: oxyCODONE 5 MG Tablet PO (00:24)
[2023-11-18 04:58] VITALS: BMI 30.5
[2023-11-18 06:05] VITALS: BP 132/75; PULSE 72; RESP 18; TEMP 36.8; O2SAT 96
[2023-11-18] MEDS: Acetaminophen 500 MG Tablet 1000 MG PO (06:11)
[2023-11-18 06:28] LABS: ALB/GLOB Ratio 0.7 RATIO (0.9-2.4); AST(SGOT) 35 U/L (15-37); Alanine Aminotransfer ALT/SGPT 34 U/L (13-56); Albumin, Serum 2.5 g/dL (3.2-5.0); Alkaline Phosphatase 73 U/L (45-117); Anion Gap 8 (5-15); BUN 25 mg/dL (7-18); BUN/Creat Ratio 27.4 RATIO (10-20); Calcium,Total 8.7 mg/dL (8.5-10.1); Chloride 105 mmol/L (98-107); Creatinine, Serum 0.91 mg/dL (0.55-1.02); EST Glomerular Filtration Rate 65 mL/min (>60); Est Glom Filt Rate - Afr Amer 78 mL/min (>60); Estimated Creatinine Clearance 54.83 ml/min; Globulin 3.7 g/dL (2.2-4.2); Glucose 102 mg/dL (74-106); Protein, Total 6.2 g/dL (6.4-8.2); Sodium Level 138 mmol/L (136-145)
[2023-11-18 07:17] LABS: Erythrocyte Sedimentation Rate 25 mm/hr (0-30)
[2023-11-18 07:20] LABS: Absolute Lymphocyte Count 1.27 X10^3/uL (0.83-4.51); Absolute Neutrophil Count 3.5 X10^3/uL (2.0-7.7); Basophil# 0.01 X10^3/uL; Basophil% 0.2 % (0-1); Eosinophil# 0.06 X10^3/uL; Eosinophils% 1.2 % (0-5); Lymphocyte # 1.27 X10^3/ul (0.83-4.51); Lymphocyte % 24.9 % (19-41); Mean Corp Hgb Conc 33.3 g/dL (32-36); Mean Corpuscular Hgb 32.3 pg (27.0-32.0); Mean Corpuscular Volume 96.8 fL (81-99); Mean Platelet Vol. 11.9 fl (6.2-12.0); Monocyte# 0.24 X10^3/uL; Monocyte% 4.7 % (0-10); NRBC Flagged by Analyzer 0 % (0-5); Neutrophil % 68.4 % (47-70); Platelet Count 153 K/mm3 (150-450); RBC Distribution Width CV 12.6 % (11.6-14.6); RBC Distribution Width SD 44.5 fl (35.1-43.9); White Blood Count 5.1 K/mm3 (4.4-11.0)
[2023-11-18 08:36] VITALS: BP 113/58; PULSE 88; RESP 16; TEMP 36.6; O2SAT 98
[2023-11-18 08:37] VITALS: BP 113/58; PULSE 88
[2023-11-18] MEDS: Metoprolol Tartrate 25 MG Tablet 12.5 MG PO (08:37)
[2023-11-18] MEDS: Clopidogrel Bisulfate 75 MG Tablet PO (08:37)
[2023-11-18] MEDS: Hydroxychloroquine 200 MG Tablet PO (08:37)
[2023-11-18] MEDS: Divalproex Sodium 250 MG Tablet 500 MG PO (08:38)
[2023-11-18] MEDS: LINAGLIPTIN 5 MG TABLET PO (08:38)
[2023-11-18] MEDS: Aspirin E.C. 81 MG Tablet PO (08:38)
[2023-11-18] MEDS: Pantoprazole Sodium 40 MG Tablet PO (08:38)
[2023-11-18] MEDS: Multivitamins,Therapeutic Tablet 1 TABLET PO (08:38)
[2023-11-18] MEDS: Enoxaparin 40 MG/0.4 ML Syringe SC (08:39)
[2023-11-18] MEDS: Folic Acid 1 MG Tablet 2 MG PO (08:39)
[2023-11-18] MEDS: Arthritis Pain Compound 60 CLICK TUBE TOPICAL (08:39)
[2023-11-18] MEDS: Lactulose 20 GM/30 ML UDC PO (08:39)
[2023-11-18 08:44] VITALS: O2SAT 98
--- NOTE | 2023-11-18 08:52 | PN.ORTHO_ITS ---
Subjective Subjective 1 week hx of right shoulder pain. never had it before. feels stiff and hard to lift. no subjective fevers. Objective Data Objective Data Vital Signs: Vital Signs Temp Pulse Resp BP Pulse Ox O2 Del Method 97.8 F 88 16 113/58 L 98 Room Air 11/18/23 08:36 11/18/23 08:37 11/18/23 08:36 11/18/23 08:37 11/18/23 08:36 11/18/23 08:36 Oxygen Delivery Method Room Air Weight: 167 lb 1.766 oz Body Mass Index (BMI) 30.5 Intake & Output: Intake and Output for Last 24 Hours 11/16/23 11/17/23 11/18/23 23:59 23:59 23:59 Intake Total 1045 / 1045 Balance 1045 / 1045 Lab / Micro Data Attestation: I reviewed the patient's lab results. 11/18/23 05:07 11/18/23 05:07 Labs: Laboratory Results - last 24 hr 11/17/23 05:41: ESR 19, Total Bilirubin 0.30, Direct Bilirubin 0.11, AST 10 L, ALT 14, Alkaline Phosphatase 50, C-React Prot Ext Range 161.00 H, Total Protein 6.3 L, Albumin 2.6 L, Globulin 3.7 11/17/23 11:18: POC Glucose 146 H 11/17/23 12:48: Ammonia 41.0 H, Procalcitonin 0.08 11/17/23 17:00: POC Glucose 129 H 11/17/23 21:09: POC Glucose 94 11/17/23 21:20: Urine Color Yellow, Urine Clarity Clear, Urine pH 6.0, Ur Specific [place] 1.020, Urine Protein 15 H, Urine Glucose (UA) Normal, Urine Ketones Negative, Urine Occult Blood Negative, Urine Nitrite Negative, Urine Bilirubin Negative, Urine Urobilinogen Normal, Ur Leukocyte Esterase 25 H, Urine RBC 0 SEEN, Urine WBC 0-5 SEEN, Ur Squamous Epith Cells 0 SEEN, Urine Bacteria 0 SEEN, Urine Mucus 0 SEEN 11/18/23 05:07: WBC 5.1, RBC 3.10 L, Hgb 10.0 L, Hct 30.0 L, MCV 96.8, MCH 32.3 H, MCHC 33.3, RDW Std Deviation 44.5 H, RDW Coeff of [place] 12.6, Plt Count 153, MPV 11.9, Immature Gran % (Auto) 0.600, Neut % (Auto) 68.4, Lymph % (Auto) 24.9, [place] % (Auto) 4.7, Eos % (Auto) 1.2, Baso % (Auto) 0.2, Absolute Neuts (auto) 3.5, Absolute Lymphs (auto) 1.27, Nucleated RBC % 0, ESR 25, Sodium 138, Potassium 4.0, Chloride 105, Carbon Dioxide 25.0, Anion Gap 8, BUN 25 H, Creatinine 0.91, Estim Creat Clear Calc 54.83, Est GFR (MDRD) Af Amer 78, Est GFR (MDRD) Non-Af 65, BUN/Creatinine Ratio 27.4 H, Glucose 102, Calcium 8.7, Total Bilirubin 0.30, AST 35, ALT 34, Alkaline Phosphatase 73, C-React Prot Ext Range 155.00 H, Total Protein 6.2 L, Albumin 2.5 L, Globulin 3.7, A lbumin/Globulin Ratio 0.7 L Micro: Microbiology 11/16/23 09:05 Mucosa - Nose Coronavirus COVID-19 PCR - Final 11/16/23 09:05 Mucosa - Nose Respiratory Panel (PCR) - Final Physical Exam Const alert and oriented x3 Extremity normal capillary refill Extremity Narrative: no redness warmth or drainage. nvi normal sens/motor to ax, mru and ain/pin active FE 25, passive 90. ER 0. pain at end ranges of motion. mild pain to palpation anterior shoulder. Assessment & Plan Assessment/Plan (1) Shoulder pain: PLAN: 72 yr F with diabetes and a stiff shoulder limited by passive and active rom in the absence of OA more likely to be adhesive capsulitis. Relatively low concern here for infection. Would not recommend acute intervention at the moment. Please call with concerns, ortho signs off.
[2023-11-18 10:59] LABS: Bedside Glucose 95 mg/dL (74-106)
[2023-11-18 11:36] LABS: Bedside Glucose 109 mg/dL (74-106)
--- NOTE | 2023-11-18 11:55 | NEURO.CONS ---
Assessment and Plan: Neuro Assessment/Plan 72 yo woman with history of epilepsy on VPA, hypertension, diabetes mellitus, coronary artery disease s/p coronary artery stent placement, obstructive sleep apnea, who is presenting with shoulder pain and fatigue. We are consulted for AED management given VPA level of 130s. Ammonia level slightly elevated at 41. LFTs wnl. She has been on this dose for many years and doing well on it, I doubt this is the reason for her fatigue, would investigate other eitologies. Now having said that, a level of 130 is high, would be reasonable to adjust the dose, but would do a small adjustment given she reports good control, and repeat level later with close follow up with outpatient neurologist.. Can decrease the PM dose from 1250 to 1000 gram. So her new dosing would be VPA DR 500 mg AM, 1000 gram PM. I personally attended this patient and spent a total time of 45 minutes evaluating this patient including clinical assessment, review of chart, medical history imaging, and determining appropriate treatment and workup. HPI Consult Data Date of Consult: 11/18/23 HPI Narrative HPI Narrative: Consult for AED management 72 yo woman with history of epilepsy on VPA, hypertension, diabetes mellitus, coronary artery disease s/p coronary artery stent placement, obstructive sleep apnea, who is presenting with shoulder pain and fatigue. We are consulted for AED management given VPA level of 130s. Seizure history Follows with Dr Ruiz last seen 02/2023 Onset 11 yo following head trauma Focal seizures with secondary generalization Current AED: Divalproex DR 500mg qAM and 1250mg qPM (two 500mg tablets and one 250mg tablet) The last time she had a seizure was 2022. She has not had a seizure this year. EEG 2019 report with ?2 brief burst of higher amplitude activity frontal predominant which may reflect partial epileptic discharges arising frontally, right more predominant then left Clinical correlation is recommended.? Brain MRI 01/31/20 No evidence of infarct, hemorrhage, mass, or abnormal enhancement. Empty sella. Mild microangiopathic white matter disease. She has been on this VPA dose for a long time, for many years now VPA level was performed at 5 am [facility] Medical History (Updated 11/16/23 @ 14:32 by Michael Delacruz MD) Shoulder pain Wears partial dentures Injury of head and neck Gastric reflux Encounter for transesophageal echo performed as part of open chest procedure History of echocardiogram History of stress test Tremor Retained suture Chest wall tenderness Fatigue Flu vaccine need Lower extremity edema History of coronary artery disease History of hypertension Left ankle pain Right hip pain Right groin pain Memory changes Left shoulder pain Cervical radiculopathy Cough Health care maintenance Right shoulder pain Therapeutic drug monitoring Osteoporosis Compression fracture of lumbar spine, non-traumatic Dysuria Dysuria Urinary frequency Acute back pain Personal history of colonic polyps GERD (gastroesophageal reflux disease) Hyperglycemia due to type 2 diabetes mellitus Wears glasses Diabetes Arthritis Anemia Non-smoker CPAP (continuous positive airway pressure) dependence Sleep apnea Shortness of breath on exertion Cardiology follow-up encounter Abdominal pain Osteoarthritis Congestive heart failure (CHF) Routine health maintenance Colon cancer screening Foreign body in stomach Seizure disorder Type 2 diabetes mellitus Diabetes mellitus type 2 in nonobese Obesity Urinary frequency Conversion disorder Obstructive sleep apnea Non-toxic goiter Essential (primary) hypertension RIGHT FOOT HEEL SPUR Atherosclerotic heart disease of [place] coronary artery without angina pectoris Rheumatoid arthritis Diabetes type 2, controlled Hives Seasonal allergies Hyperlipidemia Chronic diastolic CHF (congestive heart failure) Home Medications ?Medication ?Instructions ?Recorded ?Last Taken ?Type multivitamin 1 tab PO DAILY vitamin 05/20/19 12/16/22 History blood-glucose meter (True Metrix #1 ea 02/03/20 Unknown Rx Air Glucose Meter kit) calcium citrate 200 mg (950 mg) 200 mg PO DAILY supplement 05/21/20 12/16/22 History tablet disability placard #1 ea 06/27/20 Unknown Rx aspirin 81 mg tablet,delayed 81 mg PO DAILY heart 08/13/20 12/11/22 History release (Adult Low Dose Aspirin) clopidogrel 75 mg tablet See Rx Instructions .Route 08/20/22 12/16/22 Rx .COMPLEX heart #90 TABLETS denosumab 60 mg/mL subcutaneous 60 mg subcut [id number] #1 mL 12/11/22 Unknown Rx syringe (Prolia) divalproex 250 mg tablet,delayed 250 mg PO QPM seizure #90 tabs 02/11/23 Unknown Rx release divalproex 500 mg tablet,delayed 500 mg .Route .COMPLEX seizures 02/11/23 Unknown Rx release (Depakote) #90 tabs atorvastatin 80 mg tablet 80 mg PO QHS cholesterol #90 tabs 06/17/23 Unknown Rx blood sugar diagnostic (True #100 ea 06/17/23 Unknown Rx Metrix Glucose Test Strip) hydroxychloroquine 200 mg tablet See Rx Instructions .Route 06/17/23 Unknown Rx .COMPLEX immunosuppressant #180 tabs isosorbide mononitrate 60 mg 60 mg PO DAILY #90 tabs 06/17/23 Unknown Rx tablet,extended release 24 hr lancets 33 gauge #100 ea 06/17/23 Unknown Rx metoprolol tartrate 25 mg tablet 25 mg PO BID heart 3 months #180 06/17/23 Unknown Rx tabs pantoprazole 40 mg tablet,delayed 40 mg PO DAILY stomach #90 tabs 06/17/23 Unknown Rx release sitagliptin phosphate 100 mg See Rx Instructions .Route 06/17/23 Unknown Rx tablet (Januvia) .COMPLEX diabetes #90 tabs folic acid 1 mg tablet 2 mg PO QDAY 10/26/23 Unknown History methotrexate sodium 2.5 mg tablet 12.5 mg PO QWEEK 10/26/23 Unknown History Allergy/AdvReac Type Severity Reaction Status Date / Time prednisone AdvReac Severe Hives Verified 11/15/23 10:07 Family History Grandmother Alcoholism Cancer Arthritis Mother Alcoholism Diabetes blood clots Hypertension Grandfather Heart disease Sister Thyroid disorder Other Breast cancer Cervical cancer Colon cancer Surgical History History of coronary artery bypass graft History of coronary artery bypass graft x 3 History of cardiac catheterization History of left heart catheterization (09/20/18) History of coronary artery stent placement (03/22/18) History of carpal tunnel surgery History of section H/O: hysterectomy Social History (Updated 11/15/23 @ 15:30 by Shira Torrez) household members: none housing: apartment Smoking Status: Never smoker second hand exposure: No alcohol intake: current alcohol intake frequency: holidays/special occasions only substance use type: does not use what type of physical activity do you participate in: none Vital Signs Vital Signs Vital Signs: 11/17/23 15:00 11/17/23 15:09 11/17/23 15:20 Temperature 97.9 F Temperature Source Oral Pulse Rate 82 Pulse Strength Respiratory Rate 16 Respiratory Effort Normal Non-Labored Respiratory Depth Normal Respiratory Pattern Normal Blood Pressure 106/62 Blood Pressure Mean 76 Blood Pressure Source Monitor Blood Pressure Position Semi-Fowlers Blood Pressure Location Left Arm Pulse Ox 99 99 93 Oxygen Delivery Method Room Air Room Air 11/17/23 20:50 11/17/23 20:54 11/17/23 22:00 Temperature 96.9 F L Temperature Source Temporal Pulse Rate 87 87 Pulse Strength Respiratory Rate 16 Respiratory Effort Normal Non-Labored Respiratory Depth Normal Respiratory Pattern Normal Blood Pressure 118/68 118/68 Blood Pressure Mean 84 Blood Pressure Source Monitor Blood Pressure Position Semi-Fowlers Blood Pressure Location Left Arm Pulse Ox 97 Oxygen Delivery Method Room Air Room Air 11/18/23 00:20 11/18/23 00:20 11/18/23 00:30 Temperature 97.4 F L Temperature Source Temporal Pulse Rate 72 72 Pulse Strength Respiratory Rate 18 Respiratory Effort Normal Non-Labored Respiratory Depth Normal Respiratory Pattern Normal Blood Pressure 145/85 H 145/85 H Blood Pressure Mean 105 105 Blood Pressure Source Monitor Monitor Blood Pressure Position Sitting Semi-Fowlers Blood Pressure Location Left Arm Left Arm Pulse Ox 96 Oxygen Delivery Method Room Air Room Air 11/18/23 06:05 11/18/23 08:36 11/18/23 08:37 Temperature 98.2 F 97.8 F Temperature Source Oral Oral Pulse Rate 72 88 88 Pulse Strength Respiratory Rate 18 16 Respiratory Effort Respiratory Depth Respiratory Pattern Blood Pressure 132/75 H 113/58 L 113/58 L Blood Pressure Mean 94 76 Blood Pressure Source Monitor Monitor Blood Pressure Position Semi-Fowlers Semi-Fowlers Blood Pressure Location Left Arm Left Arm Pulse Ox 96 98 Oxygen Delivery Method Room Air Room Air 11/18/23 08:40 11/18/23 08:40 11/18/23 08:44 Temperature Temperature Source Pulse Rate Pulse Strength Normal (2+) Respiratory Rate Respiratory Effort Normal Non-Labored Respiratory Depth Normal Respiratory Pattern Normal Blood Pressure Blood Pressure Mean Blood Pressure Source Blood Pressure Position Blood Pressure Location Pulse Ox 98 Oxygen Delivery Method Room Air Weight Weight: 75.8 kg Body Mass Index (BMI) 30.5 EEG Results Procedure Details EEG Procedure Details: LACY ALVARADO is a 72 year old F with a past medical history of , who presents for evaluation of Electroencephalogram on DATE at TIME Physical Exam Const Constitutional Narrative: Exam performed with help of the nurse/SONYA present with patient on Tele site NEURO: AAOx3, follows commands, no aphasia/dysarthria. EOMI Face symmetric Tongue midline. Head turning intact Moving all extremities spontaneously Lab / Micro Data 11/18/23 05:07 11/18/23 05:07 Labs: Laboratory Results - last 24 hr 11/17/23 05:41: ESR 19, Total Bilirubin 0.30, Direct Bilirubin 0.11, AST 10 L, ALT 14, Alkaline Phosphatase 50, C-React Prot Ext Range 161.00 H, Total Protein 6.3 L, Albumin 2.6 L, Globulin 3.7 11/17/23 12:48: Ammonia 41.0 H, Procalcitonin 0.08 11/17/23 17:00: POC Glucose 129 H 11/17/23 21:09: POC Glucose 94 11/17/23 21:20: Urine Color Yellow, Urine Clarity Clear, Urine pH 6.0, Ur Specific [place] 1.020, Urine Protein 15 H, Urine Glucose (UA) Normal, Urine Ketones Negative, Urine Occult Blood Negative, Urine Nitrite Negative, Urine Bilirubin Negative, Urine Urobilinogen Normal, Ur Leukocyte Esterase 25 H, Urine RBC 0 SEEN, Urine WBC 0-5 SEEN, Ur Squamous Epith Cells 0 SEEN, Urine Bacteria 0 SEEN, Urine Mucus 0 SEEN 11/18/23 05:07: WBC 5.1, RBC 3.10 L, Hgb 10.0 L, Hct 30.0 L, MCV 96.8, MCH 32.3 H, MCHC 33.3, RDW Std Deviation 44.5 H, RDW Coeff of [place] 12.6, Plt Count 153, MPV 11.9, Immature Gran % (Auto) 0.600, Neut % (Auto) 68.4, Lymph % (Auto) 24.9, [place] % (Auto) 4.7, Eos % (Auto) 1.2, Baso % (Auto) 0.2, Absolute Neuts (auto) 3.5, Absolute Lymphs (auto) 1.27, Nucleated RBC % 0, ESR 25, Sodium 138, Potassium 4.0, Chloride 105, Carbon Dioxide 25.0, Anion Gap 8, BUN 25 H, Creatinine 0.91, Estim Creat Clear Calc 54.83, Est GFR (MDRD) Af Amer 78, Est GFR (MDRD) Non-Af 65, BUN/Creatinine Ratio 27.4 H, Glucose 102, Calcium 8.7, Total Bilirubin 0.30, AST 35, ALT 34, Alkaline Phosphatase 73, C-React Prot Ext Range 155.00 H, Total Protein 6.2 L, Albumin 2.5 L, Globulin 3.7, Albumin/Globulin Ratio 0.7 L 11/18/23 06:12: POC Glucose 95 11/18/23 11:18: POC Glucose 109 H Active Medications Active Medications Active Medications: Current Medications Generic Name Dose Route Start Last Admin Trade Name Freq PRN Reason Stop Dose Admin Acetaminophen 1,000 mg 11/15/23 22:00 11/18/23 06:11 Acetaminophen 500 Mg Tablet PO 1,000 mg Q8 KIT Administration Al Hydroxide/Mg Hydroxide 30 ml 11/15/23 14:52 Mag Hydrox/Al Hydrox/Simeth 30 Ml Udc PO Q6H PRN PRN Gastric Burning Albuterol Sulfate 2.5 mg 11/15/23 14:52 Albuterol 2.5 Mg/3 Ml Vial.Neb. INHALATION Q2H PRN PRN SOB &/OR WHEEZING Aspirin 81 mg 11/16/23 08:00 11/18/23 08:38 Aspirin E.C. 81 Mg Tablet PO 81 mg BREAKFAST KIT Administration Atorvastatin Calcium 80 mg 11/15/23 22:00 11/17/23 20:58 Atorvastatin Calcium 80 Mg Tablet PO 80 mg QHS KIT Administration Clopidogrel Bisulfate 75 mg 11/16/23 10:00 11/18/23 08:37 Clopidogrel Bisulfate 75 Mg Tablet PO 75 mg DAILY KIT Administration Compound Med 0 click 11/16/23 14:45 11/18/23 08:39 Arthritis Pain Compound 60 Click Tube TOPICAL 1 click BID KIT Administration Protocol Divalproex Sodium 1,250 mg 11/15/23 21:00 11/17/23 20:57 Divalproex Sodium 250 Mg Tablet PO 1,250 mg QPM KIT Administration Divalproex Sodium 500 mg 11/16/23 10:00 11/18/23 08:38 Divalproex Sodium 250 Mg Tablet PO 500 mg QAM KIT Administration Enoxaparin Sodium 40 mg 11/17/23 10:00 11/18/23 08:39 Enoxaparin 40 Mg/0.4 Ml Syringe SC 40 mg DAILY KIT Administration Folic Acid 2 mg 11/15/23 15:15 11/18/23 08:39 Folic Acid 1 Mg Tablet PO 2 mg BREAKFAST KIT Administration Glucagon 1 mg 11/15/23 14:52 Glucagon 1 Mg/Ml Syringe IM X1 PRN Hypoglycemia Protocol Hydroxychloroquine Sulfate 200 mg 11/15/23 17:00 11/18/23 08:37 Hydroxychloroquine 200 Mg Tablet PO 200 mg BIDCM KIT Administration Dextrose 250 mls @ 0 mls/hr 11/15/23 14:52 Dextrose 10%-Water IV .Q0M PRN HYPOGLYCEMIA Protocol As Directed Sodium Chloride 250 mls @ 15 mls/hr 11/15/23 14:53 IV .[id number] PRN Additional IVPB Infusion Sodium Chloride 250 mls @ 15 mls/hr 11/15/23 14:53 IV .[id number] PRN Saline Flush Insulin Human Lispro 0 unit 11/15/23 16:00 11/18/23 11:18 Insulin Lispro 100 Unit/Ml Insuln.Pen SC Not Given ACHS KIT Protocol Lactulose 20 gm 11/17/23 22:00 11/18/23 08:39 Lactulose 20 Gm/30 Ml Udc PO 20 gm BID KIT Administration Linagliptin 5 mg 11/16/23 10:00 11/18/23 08:38 Linagliptin 5 Mg Tablet PO 5 mg DAILY KIT Administration Melatonin 3 mg 11/15/23 14:52 Melatonin 3 Mg Tablet PO QHS PRN PRN INSOMNIA Methotrexate 12.5 mg 11/16/23 10:00 11/16/23 08:20 Methotrexate 2.5 Mg Tablet PO 12.5 mg Mo@1000 KIT Administration Metoprolol Tartrate 12.5 mg 11/17/23 22:00 11/18/23 08:37 Metoprolol Tartrate 25 Mg Tablet PO 12.5 mg BID KIT Administration Protocol Morphine Sulfate 2 mg 11/17/23 16:30 Morphine 2 Mg/Ml Syringe IV Q3H PRN PRN Pain Score 6-10 Multivitamins 1 tablet 11/16/23 08:00 11/18/23 08:38 Multivitamins,Therapeutic Tablet PO 1 tablet BREAKFAST KIT Administration Nitroglycerin 0.4 mg 11/15/23 14:52 Nitroglycerin (Inpatient Use) 0.4 Mg Tab.Subl SL Q5M PRN CARDIAC/CHEST PAIN Ondansetron HCl 4 mg 11/15/23 14:52 Ondansetron 4 Mg/2 Ml Vial IV Q8H PRN PRN NAUSEA/VOMITING Oxycodone HCl 5 mg 11/17/23 16:30 11/18/23 00:24 Oxycodone 5 Mg Tablet PO 5 mg Q4H PRN PRN Administration Pain Score 4-10 Pantoprazole Sodium 40 mg 11/16/23 10:00 11/18/23 08:38 Pantoprazole Sodium 40 Mg Tablet PO 40 mg DAILY KIT Administration Senna/Docusate Sodium 2 tablet 11/15/23 14:52 Senna/Docusate Sodium 1 Tablet PO BID PRN PRN Constipation Sodium Chloride 10 - 40 ml 11/15/23 14:53 11/15/23 17:45 0.9% Saline Lock 10 Ml Syringe IV 20 ml UD PRN Administration SALINE FLUSH Throat Lozenges 1 lozenge 11/16/23 20:41 11/17/23 06:08 Benzocaine/Menthol 1 Lozenge MUCOUS MEM 1 lozenge Q2H PRN PRN Administration SORE THROAT
--- NOTE | 2023-11-18 12:10 | CASEMGMT ---
RN CM Face to Face with patient for initial transition planning/care coordination assessment. RN CM introduced self and role at [facility]. Patient lying in bed, alert and oriented. Patient willing to participate in assessment and is able to answer all questions appropriately. Care providers, pharmacy, and demographics verified. PCP: Jose Specialists: RA Kahsif; Alex, software quality automation engineer; Shan, alligator shear operator; Sara, neurologist Preferred Pharmacy: [email or web address] Insurance: [employer] [facility] Prescription Benefit: yes Living Will/HPOA: yes niece Amie [place]ERMANOK: son, niece Living Arrangements: Patient lives alone in a 3rd floor apartment. Patient states she is independent and able to ambulate steps. Transportation: public, friend DME/HHC: Patient states she has glucometer at home. No previous SNF. Has had HHC in the past. Patient wishes to discharge home with outpatient OT at [facility], script received and faxed to [facility] with request for [facility] to call patient to schedule appt. Patient states she has no further needs or concerns at this time. CM to follow for discharge planning needs that may arise. Disposition Plan: Patient to discharge home with outpatient OT, family support, and follow-up plans in place. Karrie FENTON, RN, CM
--- NOTE | 2023-11-18 13:30 | PCM.DC ---
Discharge Instructions Diet Discharge Diet: - (DASH diet) Activity Discharge Activity: - (Outpatient therapy for right shoulder) Follow Up Care Test Results: Test results from this visit will be discussed in further detail at your follow-up appointment, if applicable. Discharge Plan Admission Admit Date/Time: 11/15/23 14:01 Primary Reason for Your Visit: Shoulder/chest pain Attending Provider: Lenka Davis Primary Care Provider: Kannan Garcia Consulting Providers: Maurilio Bradford Instructions Patient Instructions: ED Tendonitis Additional Instructions / Restrictions: DISCHARGE INSTRUCTIONS PLEASE READ *Please take this with you to your next doctors appointment* -Your Depakote has been changed to 500 mg in the morning and 1000 mg at night due to an elevated Depakote level -You will need lab work (Depakote level) to check your Depakote levels in 2 to 3 days through your doctors office. Please call their office upon discharge to obtain order for lab work. -Please call your neurologist to schedule hospital follow-up upon discharge -You will be given a prescription for outpatient physical therapy for your shoulder - Recommend Tylenol as needed and [id number] Voltaren gel as needed, will send short term prescription of pain medication as well. Your prescription was sent to your preferred pharmacy on file -Here isosorbide has been held as your blood pressures were somewhat low and your metoprolol was decreased to 12.5 mg twice daily, you will likely resume your previous regimen on an outpatient basis as your blood pressure increases, will be important to follow with your primary care physician for further adjustments -It is advised to follow with your immigration patrol inspector on discharge -Please call your primary care provider's office upon discharge to schedule a hospital follow up within 1 week. -For any concerning signs or symptoms please call 911 or proceed to the nearest emergency department Discharge Orders/Prescriptions Prescriptions: New oxycodone 5 mg Tablet 5 mg PO Q4H PRN PRN (Reason: Pain Score 4-10) 3 Days Qty: 20 0RF Continued multivitamin Tablet 1 tab PO DAILY calcium citrate 200 mg (950 mg) tablet 200 mg PO DAILY aspirin [Adult Low Dose Aspirin] 81 mg tablet,delayed release (DR/EC) 81 mg PO DAILY divalproex [Depakote] 500 mg tablet,delayed release (DR/EC) 500 mg .ROUTE .COMPLEX Qty: 90 6RF Rx Instructions: Take 1 tablet orally qAM and 2 tablets qPM (DME) lancets 33 gauge misc See Rx Instructions .Route Qty: 100 2RF Rx Instructions: As directed (DME) True Metrix Glucose Test Strip Strip See Rx Instructions .ROUTE .MEDSUPPLY Qty: 100 3RF Rx Instructions: check twice a day and as needed Januvia 100 mg tablet See Rx Instructions .ROUTE .COMPLEX Qty: 90 1RF Dose Instruction: TAKE 1 TABLET BY MOUTH DAILY Rx Instructions: TAKE 1 TABLET BY MOUTH DAILY pantoprazole 40 mg tablet,delayed release (DR/EC) 40 mg PO DAILY Qty: 90 1RF Rx Instructions: Take 30 minutes before breakfast hydroxychloroquine 200 mg tablet See Rx Instructions .ROUTE .COMPLEX Qty: 180 1RF Dose Instruction: TAKE 1 TABLET BY MOUTH TWICE DAILY WITH MEALS Rx Instructions: TAKE 1 TABLET BY MOUTH TWICE DAILY WITH MEALS atorvastatin 80 mg tablet 80 mg PO QHS Qty: 90 1RF methotrexate sodium 2.5 mg tablet 12.5 mg PO QWEEK Patient Comments: takes on thursday folic acid 1 mg tablet 2 mg PO QDAY (DME) blood-glucose meter [True Metrix Air Glucose Meter] Kit See Rx Instructions .ROUTE .MEDSUPPLY Qty: 1 0RF Rx Instructions: As directed (DME) disability placard See Rx Instructions .ROUTE .MEDSUPPLY Qty: 1 0RF Rx Instructions: As directed, Length of time: 5 years clopidogrel 75 mg tablet See Rx Instructions .ROUTE .COMPLEX Qty: 90 3RF Dose Instruction: TAKE 1 TABLET BY MOUTH EVERY DAY Rx Instructions: TAKE 1 TABLET BY MOUTH EVERY DAY Prolia 60 mg/mL syringe 60 mg subcut [id number] Qty: 1 2RF Changed metoprolol tartrate 25 mg tablet 12.5 mg PO BID 90 Days Qty: 180 1RF Held isosorbide mononitrate 60 mg tablet extended release 24 hr 60 mg PO DAILY Qty: 90 1RF Hold Instructions: Resume on 12/02/23. Discontinued divalproex 250 mg tablet,delayed release (DR/EC) 250 mg PO QPM Qty: 90 1RF Rx Instructions: Take with 1000 mg Divalproex for a total evening dose of 1250 mg daily. Referrals / Follow Up: Kannan Garcia MD [Primary Care Provider] - Within 1 Week Disposition Disposition (needs filled in before D/C Order can be placed): Home, Self Care
--- NOTE | 2023-11-18 13:48 | PCM.DC.SUM ---
Providers Date of Admission: 11/15/23 Date of Discharge: 11/18/23 Primary Care Physician: Dr. Kannan Garcia MD Consultations 11/17/23 16:41 Consult: Tele-Neurology Routine Consulting Provider: [facility] Reason for Consult: hxepilepsy-concern elevated depakote causing low BP and increased tiredness EMERGENT Consult: No MD Notified: Yes Date Notified: 11/17/23 Time Notified: 16:42 Method of Notification: Answering Service Comments:: ?adjusting depakote or likely not culprit? Reason For Visit: Shoulder pain Diagnosis Discharge Diagnosis (1) Shoulder pain: Status: Acute Code(s): M25.519 - Pain in unspecified shoulder Plan #Right shoulder pain- tendinitis/tendinosis #Elevated depakote level #Hx CAD s/p CABG #macrocytic anemia #hx RA # Seizure disorder #Type 2 diabetes mellitus #GERD Medications at Discharge Home Medications multivitamin 1 tab PO DAILY vitamin 05/20/19 blood-glucose meter (True Metrix Air Glucose Meter kit) #1 ea 02/03/20 calcium citrate 200 mg (950 mg) tablet 200 mg PO DAILY supplement 05/21/20 disability placard #1 ea 06/27/20 aspirin 81 mg tablet,delayed release (Adult Low Dose Aspirin) 81 mg PO DAILY heart 08/13/20 clopidogrel 75 mg tablet See Rx Instructions .Route .COMPLEX heart #90 TABLETS 08/20/22 denosumab 60 mg/mL subcutaneous syringe (Prolia) 60 mg subcut [id number] bone health #1 mL 12/11/22 divalproex 500 mg tablet,delayed release (Depakote) 500 mg .Route .COMPLEX seizures #90 tabs 02/11/23 atorvastatin 80 mg tablet 80 mg PO QHS cholesterol #90 tabs 06/17/23 blood sugar diagnostic (True Metrix Glucose Test Strip) #100 ea 06/17/23 hydroxychloroquine 200 mg tablet See Rx Instructions .Route .COMPLEX immunosuppressant #180 tabs 06/17/23 isosorbide mononitrate 60 mg tablet,extended release 24 hr 60 mg PO DAILY heart health #90 tabs 06/17/23 lancets 33 gauge #100 ea 06/17/23 pantoprazole 40 mg tablet,delayed release 40 mg PO DAILY stomach #90 tabs 06/17/23 sitagliptin phosphate 100 mg tablet (Januvia) See Rx Instructions .Route .COMPLEX diabetes #90 tabs 06/17/23 folic acid 1 mg tablet 2 mg PO QDAY supplement 10/26/23 methotrexate sodium 2.5 mg tablet 12.5 mg PO QWEEK 10/26/23 metoprolol tartrate 25 mg tablet 12.5 mg (1/2 x 25 mg) PO BID heart 3 months #180 tabs 11/18/23 oxycodone 5 mg tablet 5 mg PO Q4H PRN PRN Pain Score 4-10 3 days #20 tabs 11/18/23 Hospital Course Summary of Care Provided Minutes Spent on Discharge: 35 Hospital Course: 9-year-old female history of GERD, CAD, seizure disorder, diabetes presented to [facility] ED 11/15/2023 with shoulder pain that radiated to the chest, given her cardiac history and pleuritic nature of the pain she was assessed for ACS and PE which were all negative, on exam morning after admission patient specifically had right shoulder pain with movement and when she moved it sometimes she would have that pain that radiated towards her chest, MRI showed tendinitis and tendinosis, discussed with orthopedic surgery and it was felt the patient should be managed conservatively and can follow-up outpatient. Patient did well, did have blood pressure that had down trended and was more tired, discussed with Ortho and was not felt that there was infection, obtain cultures however patient improved without antibiotics, UA fairly benign, urine culture that was sent at the same time with low colony counts of gram-negative however given benign UA and lack of clinical infection and improvement despite no antibiotics suspect that patient's low blood pressure and tiredness was largely due to the pain medication. Patient was evaluated by neurology as she had elevated Depakote level and there was concern this could be contributing to her being tired, there were recommendations to decrease this and follow-up with her outpatient provider. On day of discharge patient still with some pain in her shoulder but feeling better, agreeable to discharge, no other new or acute complaints. Discharge instructions as follows: -Your Depakote has been changed to 500 mg in the morning and 1000 mg at night due to an elevated Depakote level -You will need lab work (Depakote level) to check your Depakote levels in 2 to 3 days through your doctors office. Please call their office upon discharge to obtain order for lab work. -Please call your neurologist to schedule hospital follow-up upon discharge -You will be given a prescription for outpatient physical therapy for your shoulder - Recommend Tylenol as needed and [id number] Voltaren gel as needed, will send short term prescription of pain medication as well. Your prescription was sent to your preferred pharmacy on file -Here isosorbide has been held as your blood pressures were somewhat low and your metoprolol was decreased to 12.5 mg twice daily, you will likely resume your previous regimen on an outpatient basis as your blood pressure increases, will be important to follow with your primary care physician for further adjustments -It is advised to follow with your strategic communications manager on discharge -Please call your primary care provider's office upon discharge to schedule a hospital follow up within 1 week. -For any concerning signs or symptoms please call 911 or proceed to the nearest emergency department Physical Exam Narrative General: Alert, oriented, no apparent distress HEENT: Atraumatic, normocephalic Eyes: Anicteric, normal conjunctiva, extraocular movements grossly intact Neck: Supple Respiratory: Clear to auscultation bilaterally, normal respiratory effort Cardiovascular: Regular rate and rhythm GI: Soft, nontender, nondistended Extremities: No edema Musculoskeletal: Pain on movement of right shoulder Neuro: No overt focal neurological deficits Skin: No rashes appreciated Psych: Cooperative Weight / BMI Weight Weight: 75.8 kg Body Mass Index (BMI) 30.5 ABG / Lab / Microbiology Data 11/18/23 05:07 11/18/23 05:07 Laboratory: Laboratory Results - last 24 hr 11/17/23 17:00: POC Glucose 129 H 11/17/23 21:09: POC Glucose 94 11/17/23 21:20: Urine Color Yellow, Urine Clarity Clear, Urine pH 6.0, Ur Specific [place] 1.020, Urine Protein 15 H, Urine Glucose (UA) Normal, Urine Ketones Negative, Urine Occult Blood Negative, Urine Nitrite Negative, Urine Bilirubin Negative, Urine Urobilinogen Normal, Ur Leukocyte Esterase 25 H, Urine RBC 0 SEEN, Urine WBC 0-5 SEEN, Ur Squamous Epith Cells 0 SEEN, Urine Bacteria 0 SEEN, Urine Mucus 0 SEEN 11/18/23 05:07: WBC 5.1, RBC 3.10 L, Hgb 10.0 L, Hct 30.0 L, MCV 96.8, MCH 32.3 H, MCHC 33.3, RDW Std Deviation 44.5 H, RDW Coeff of [place] 12.6, Plt Count 153, MPV 11.9, Immature Gran % (Auto) 0.600, Neut % (Auto) 68.4, Lymph % (Auto) 24.9, [place] % (Auto) 4.7, Eos % (Auto) 1.2, Baso % (Auto) 0.2, Absolute Neuts (auto) 3.5, Absolute Lymphs (auto) 1.27, Nucleated RBC % 0, ESR 25, Sodium 138, Potassium 4.0, Chloride 105, Carbon Dioxide 25.0, Anion Gap 8, BUN 25 H, Creatinine 0.91, Estim Creat Clear Calc 54.83, Est GFR (MDRD) Af Amer 78, Est GFR (MDRD) Non-Af 65, BUN/Creatinine Ratio 27.4 H, Glucose 102, Calcium 8.7, Total Bilirubin 0.30, AST 35, ALT 34, Alkaline Phosphatase 73, C-React Prot Ext Range 155.00 H, Total Protein 6.2 L, Albumin 2.5 L, Globulin 3.7, Albumin/Globulin Ratio 0.7 L 11/18/23 06:12: POC Glucose 95 11/18/23 11:18: POC Glucose 109 H Microbiology: Microbiology 11/17/23 21:20 Urine, Clean Catch Urine Culture - Preliminary Gram negative henrik 11/16/23 09:05 Mucosa - Nose Coronavirus COVID-19 PCR - Final 11/16/23 09:05 Mucosa - Nose Respiratory Panel (PCR) - Final D/C Instructions Discharge Diet: - (DASH diet) Meaningful Use Info Meaningful Use Meaningful Use Diagnoses (Choose all that apply): None applicable Ischemic Stroke Statin Dosing Therapy Reference: STATIN DOSE THERAPY REFERENCE: * Patients > 75 years receive moderate or high dose statin therapy. * Patients 75 years or YOUNGER should receive HIGH intensity statin dose unless contraindicated. You will be required to document reason for non-treatment if statin daily dose does not meet guidelines. HIGH DOSE STATIN THERAPY DAILY Atorvastatin > than or = to 40 mg Rosuvastatin > than or = to 20 mg Amlodipine + Atorvastatin > than or = to 2.5/40 mg Ezetimibe + Simvastatin 10/80 mg Simvastatin 80mg Discharge Plan Admission Admit Date/Time: 11/15/23 14:01 Primary Reason for Your Visit: Shoulder/chest pain Attending Provider: Lenka Davis Primary Care Provider: Kannan Garcia Consulting Providers: Maurilio Bradford Instructions Patient Instructions: ED Tendonitis Additional Instructions / Restrictions: DISCHARGE INSTRUCTIONS PLEASE READ *Please take this with you to your next doctors appointment* -Your Depakote has been changed to 500 mg in the morning and 1000 mg at night due to an elevated Depakote level -You will need lab work (Depakote level) to check your Depakote levels in 2 to 3 days through your doctors office. Please call their office upon discharge to obtain order for lab work. -Please call your neurologist to schedule hospital follow-up upon discharge -You will be given a prescription for outpatient physical therapy for your shoulder - Recommend Tylenol as needed and [id number] Voltaren gel as needed, will send short term prescription of pain medication as well. Your prescription was sent to your preferred pharmacy on file -Here isosorbide has been held as your blood pressures were somewhat low and your metoprolol was decreased to 12.5 mg twice daily, you will likely resume your previous regimen on an outpatient basis as your blood pressure increases, will be important to follow with your primary care physician for further adjustments -It is advised to follow with your strategic communications manager on discharge -Please call your primary care provider's office upon discharge to schedule a hospital follow up within 1 week. -For any concerning signs or symptoms please call 911 or proceed to the nearest emergency department Discharge Orders/Prescriptions Prescriptions: New oxycodone 5 mg Tablet 5 mg PO Q4H PRN PRN (Reason: Pain Score 4-10) 3 Days Qty: 20 0RF Continued multivitamin Tablet 1 tab PO DAILY calcium citrate 200 mg (950 mg) tablet 200 mg PO DAILY aspirin [Adult Low Dose Aspirin] 81 mg tablet,delayed release (DR/EC) 81 mg PO DAILY divalproex [Depakote] 500 mg tablet,delayed release (DR/EC) 500 mg .ROUTE .COMPLEX Qty: 90 6RF Rx Instructions: Take 1 tablet orally qAM and 2 tablets qPM (DME) lancets 33 gauge misc See Rx Instructions .Route Qty: 100 2RF Rx Instructions: As directed (DME) True Metrix Glucose Test Strip Strip See Rx Instructions .ROUTE .MEDSUPPLY Qty: 100 3RF Rx Instructions: check twice a day and as needed Januvia 100 mg tablet See Rx Instructions .ROUTE .COMPLEX Qty: 90 1RF Dose Instruction: TAKE 1 TABLET BY MOUTH DAILY Rx Instructions: TAKE 1 TABLET BY MOUTH DAILY pantoprazole 40 mg tablet,delayed release (DR/EC) 40 mg PO DAILY Qty: 90 1RF Rx Instructions: Take 30 minutes before breakfast hydroxychloroquine 200 mg tablet See Rx Instructions .ROUTE .COMPLEX Qty: 180 1RF Dose Instruction: TAKE 1 TABLET BY MOUTH TWICE DAILY WITH MEALS Rx Instructions: TAKE 1 TABLET BY MOUTH TWICE DAILY WITH MEALS atorvastatin 80 mg tablet 80 mg PO QHS Qty: 90 1RF methotrexate sodium 2.5 mg tablet 12.5 mg PO QWEEK Patient Comments: takes on thursday folic acid 1 mg tablet 2 mg PO QDAY (DME) blood-glucose meter [True Metrix Air Glucose Meter] Kit See Rx Instructions .ROUTE .MEDSUPPLY Qty: 1 0RF Rx Instructions: As directed (DME) disability placard See Rx Instructions .ROUTE .MEDSUPPLY Qty: 1 0RF Rx Instructions: As directed, Length of time: 5 years clopidogrel 75 mg tablet See Rx Instructions .ROUTE .COMPLEX Qty: 90 3RF Dose Instruction: TAKE 1 TABLET BY MOUTH EVERY DAY Rx Instructions: TAKE 1 TABLET BY MOUTH EVERY DAY Prolia 60 mg/mL syringe 60 mg subcut [id number] Qty: 1 2RF Changed metoprolol tartrate 25 mg tablet 12.5 mg PO BID 90 Days Qty: 180 1RF Held isosorbide mononitrate 60 mg tablet extended release 24 hr 60 mg PO DAILY Qty: 90 1RF Hold Instructions: Resume on 12/02/23. Discontinued divalproex 250 mg tablet,delayed release (DR/EC) 250 mg PO QPM Qty: 90 1RF Rx Instructions: Take with 1000 mg Divalproex for a total evening dose of 1250 mg daily. Referrals / Follow Up: Kannan Garcia MD [Primary Care Provider] - 12/02/23 2:00 pm (appointment is with Mitch Miller N.P) Disposition Disposition (needs filled in before D/C Order can be placed): Home, Self Care Charges/Coding Visit Charges Inpatient E&M: 26773 Disch Hosp >30min
--- NOTE | 2023-11-18 14:20 | PHA.DC_ITS ---
Pharmacy [facility] Pharmacy Service has performed discharge medication reconciliation and counseling for this patient. 1. OXYCODONE 5MG PO Q4H PRN PAIN The patient's discharge medication list was reviewed for discrepancies and discrepancies were resolved. The patient was counseled on the following discharge medications and changes in medications for homegoing were reviewed. The Reason for Use, instructions for use, and potential side effects were reviewed for all new medications. The patient's questions regarding all of their medications were answered. The patient was able to verbally demonstrate an understanding of their discharge medications. Patient counseled by pharmacy graduate intern Medications at Discharge Home Medications multivitamin 1 tab PO DAILY vitamin 05/20/19 blood-glucose meter (True Metrix Air Glucose Meter kit) #1 ea 02/03/20 calcium citrate 200 mg (950 mg) tablet 200 mg PO DAILY supplement 05/21/20 disability placard #1 ea 06/27/20 aspirin 81 mg tablet,delayed release (Adult Low Dose Aspirin) 81 mg PO DAILY heart 08/13/20 clopidogrel 75 mg tablet See Rx Instructions .Route .COMPLEX heart #90 TABLETS 08/20/22 denosumab 60 mg/mL subcutaneous syringe (Prolia) 60 mg subcut [id number] bone health #1 mL 12/11/22 divalproex 500 mg tablet,delayed release (Depakote) 500 mg .Route .COMPLEX seizures #90 tabs 02/11/23 atorvastatin 80 mg tablet 80 mg PO QHS cholesterol #90 tabs 06/17/23 blood sugar diagnostic (True Metrix Glucose Test Strip) #100 ea 06/17/23 hydroxychloroquine 200 mg tablet See Rx Instructions .Route .COMPLEX immunosuppressant #180 tabs 06/17/23 isosorbide mononitrate 60 mg tablet,extended release 24 hr 60 mg PO DAILY heart health #90 tabs 06/17/23 lancets 33 gauge #100 ea 06/17/23 pantoprazole 40 mg tablet,delayed release 40 mg PO DAILY stomach #90 tabs 06/17/23 sitagliptin phosphate 100 mg tablet (Januvia) See Rx Instructions .Route .COMPLEX diabetes #90 tabs 06/17/23 folic acid 1 mg tablet 2 mg PO QDAY supplement 10/26/23 methotrexate sodium 2.5 mg tablet 12.5 mg PO QWEEK 10/26/23 metoprolol tartrate 25 mg tablet 12.5 mg (1/2 x 25 mg) PO BID heart 3 months #180 tabs 11/18/23 oxycodone 5 mg tablet 5 mg PO Q4H PRN PRN Pain Score 4-10 3 days #20 tabs 11/18/23
[2023-11-18 14:30] VITALS: BP 114/56; PULSE 87; RESP 16; TEMP 36.6; O2SAT 98
== END 2023-11-18 13:48 | disposition home or self-care (01) ==
LOC: ED 14:09 → PCU 14:24
PROVIDERS: Admitting Provider Internal Medicine; Emergency Provider Emergency Medicine; PCP Internal Medicine; Visit Provider Internal Medicine
DX: M77.8 Other enthesopathies, not elsewhere classified (principal); M06.9 Rheumatoid arthritis, unspecified; I11.0 Hypertensive heart disease with heart failure; I50.32 Chronic diastolic (congestive) heart failure; G40.909 Epilepsy, unspecified, not intractable, without status epilepticus; E11.9 Type 2 diabetes mellitus without complications; R07.89 Other chest pain; M25.519 Pain in unspecified shoulder; Z79.82 Long term (current) use of aspirin; K21.9 Gastro-esophageal reflux disease without esophagitis; I95.9 Hypotension, unspecified; Z68.34 Body mass index [BMI] 34.0-34.9, adult; E78.5 Hyperlipidemia, unspecified; I25.10 Atherosclerotic heart disease of native coronary artery without angina pectoris; E66.9 Obesity, unspecified; R06.02 Shortness of breath; Z79.899 Other long term (current) drug therapy; Z79.02 Long term (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 of antithrombotics/antiplatelets; G47.33 Obstructive sleep apnea (adult) (pediatric); Z95.1 Presence of aortocoronary bypass graft; R00.0 Tachycardia, unspecified; K76.0 Fatty (change of) liver, not elsewhere classified; D53.9 Nutritional anemia, unspecified
CPT/HCPCS: 36415; 71275; 73221; 80048; 80053; 80076; 80164; 81001; 82140; 82962; 83036; 83735; 83880; 84100; 84145; 84484; 85025; 85379; 85610; 85652; 85730; 86140; 87040; 87077; 87086; 87088; 87186; 87633; 87635; 93005; 93306; 93970; 94668; 96372; 96374; 96376; 97162; 97166; 97535; 99221; 99284; Q9967; A4216; G0378; J8610

== ENCOUNTER → 2023-12-02 | Outpatient (CLI) | payer MEDICARE, SELFPAY ==
[2023-07-29 08:29] VITALS: BMI 30.2
[2023-12-02 11:18] LABS: Absolute Lymphocyte Count 1.34 X10^3/uL (0.83-4.51); Absolute Neutrophil Count 2.3 X10^3/uL (2.0-7.7); Basophil# 0.02 X10^3/uL; Basophil% 0.5 % (0-1); Eosinophil# 0.17 X10^3/uL; Eosinophils% 4.1 % (0-5); Hematocrit 34.4 % (37-47); Hemoglobin 11.3 g/dL (12.0-15.0); Lymphocyte # 1.34 X10^3/ul (0.83-4.51); Lymphocyte % 32.3 % (19-41); Mean Corp Hgb Conc 32.8 g/dL (32-36); Mean Corpuscular Hgb 32.2 pg (27.0-32.0); Mean Platelet Vol. 11.3 fl (6.2-12.0); Monocyte# 0.29 X10^3/uL; NRBC Flagged by Analyzer 0 % (0-5); Neutrophil # 2.31 X10^3/uL (2.7-7.7); Neutrophil % 55.6 % (47-70); Platelet Count 207 K/mm3 (150-450); RBC Distribution Width CV 13.2 % (11.6-14.6); RBC Distribution Width SD 47.1 fl (35.1-43.9); Red Blood Count 3.51 M/mm3 (4.2-5.4); White Blood Count 4.2 K/mm3 (4.4-11.0)
[2023-12-02 11:59] LABS: ALB/GLOB Ratio 0.8 RATIO (0.9-2.4); AST(SGOT) 14 U/L (15-37); Alanine Aminotransfer ALT/SGPT 23 U/L (13-56); Alkaline Phosphatase 70 U/L (45-117); Anion Gap 4 (5-15); BUN 15 mg/dL (7-18); BUN/Creat Ratio 15.6 RATIO (10-20); Bilirubin, Direct 0.08 mg/dL (0.00-0.30); Calcium,Total 8.4 mg/dL (8.5-10.1); Chloride 112 mmol/L (98-107); Cholesterol 155 mg/dL (200); Creatinine, Serum 0.96 mg/dL (0.55-1.02); EST Glomerular Filtration Rate 61 mL/min (>60); Est Glom Filt Rate - Afr Amer 74 mL/min (>60); Globulin 3.8 g/dL (2.2-4.2); Glucose 126 mg/dL (74-106); High Density Lipoprotein 56 mg/dL; Potassium 3.9 mmol/L (3.5-5.1); Protein, Total 6.8 g/dL (6.4-8.2); Sodium Level 144 mmol/L (136-145); Total Bilirubin < 0.10 mg/dL (0.20-1.00); Triglycerides 72 mg/dL; Very Low Density Lipoprotein 14 mg/dL (5-40)
== END | disposition home or self-care (01) ==
LOC: LAB 10:37
PROVIDERS: Nurse Practitioner Family; PCP Internal Medicine; Referring Provider Internal Medicine Rheumatology; Visit Provider Internal Medicine Rheumatology
DX: M05.79 Rheumatoid arthritis with rheumatoid factor of multiple sites without organ or systems involvement (principal); M79.7 Fibromyalgia; Z79.899 Other long term (current) drug therapy
CPT/HCPCS: 36415; 80053; 80061; 82248; 85025

== ENCOUNTER → 2023-12-17 | Outpatient (CLI) | payer MEDICARE, SELFPAY ==
[2023-07-29 08:29] VITALS: BMI 30.2
== END | disposition home or self-care (01) ==
LOC: SL 10:33
PROVIDERS: PCP Internal Medicine; Referring Provider Nurse Practitioner Acute Care; Visit Provider Nurse Practitioner Acute Care
DX: R09.02 Hypoxemia (principal)
CPT/HCPCS: 94762

== ENCOUNTER 2024-02-14 18:22 | Emergency (ER) | payer MEDICARE, SELFPAY ==
[2023-07-29 08:29] VITALS: BMI 30.2
[2024-02-14 18:23] VITALS: BP 159/74; PULSE 100; RESP 18; TEMP 36.2; O2SAT 100
--- NOTE | 2024-02-14 19:02 | RAD_ITS ---
STUDY: XR Ankle Min 3 Views REASON FOR EXAM: Female, 73 years old. ANKLE PAIN TECHNIQUE: XR Ankle Min 3 Views LEFT COMPARISON: None. FINDINGS: Normal visualized distal tibia and fibula. Normal medial and lateral malleoli. Normal tibiotalar articulation and ankle mortise. Achilles spur The visualized subtalar, talonavicular, calcaneocuboid and tarsal articulations are normal. There is a plantar calcaneal spur. There is soft tissue swelling around the ankle. RAD/Ankle min 3 Views IMPRESSION: There is soft tissue swelling. Electronically Signed: Moody Staton MD at 19:57 EDT ,
[2024-02-14] MEDS: Acetaminophen 500 MG Tablet 1000 MG PO (19:19)
--- NOTE | 2024-02-14 19:30 | ED.VIS.LOWEX ---
HPI History of Present Illness Chief Complaint: Lower Extremity Injury Informant: patient Narrative Narrative: Patient reports 1 week history of nontraumatic left ankle pain and swelling. Denies fevers or chills. Denies paresthesias. She also reports tingling to her toes on the right foot over the last 2 days. She is a diabetic. History of coronary disease four-vessel bypass last year. Denies any diagnosed neuropathy history with her diabetes. No medications taken at home however states she needs to get herself better to help take care of a family member next week. Prior similar symptoms: No PFSH PFSH Medical History Chest pain Dyspnea on exertion Wears partial dentures Injury of head and neck Gastric reflux Encounter for transesophageal echo performed as part of open chest procedure History of echocardiogram History of stress test Tremor Retained suture Chest wall tenderness Fatigue Flu vaccine need Lower extremity edema History of coronary artery disease History of hypertension Left ankle pain Right hip pain Right groin pain Memory changes Left shoulder pain Cervical radiculopathy Cough Health care maintenance Right shoulder pain Therapeutic drug monitoring Osteoporosis Compression fracture of lumbar spine, non-traumatic Dysuria Dysuria Urinary frequency Acute back pain Personal history of colonic polyps GERD (gastroesophageal reflux disease) Hyperglycemia due to type 2 diabetes mellitus Wears glasses Diabetes Arthritis Anemia Non-smoker CPAP (continuous positive airway pressure) dependence Sleep apnea Shortness of breath on exertion Cardiology follow-up encounter Abdominal pain Osteoarthritis Congestive heart failure (CHF) Routine health maintenance Colon cancer screening Foreign body in stomach Seizure disorder Type 2 diabetes mellitus Diabetes mellitus type 2 in nonobese Obesity Urinary frequency Conversion disorder Obstructive sleep apnea Non-toxic goiter Essential (primary) hypertension RIGHT FOOT HEEL SPUR Atherosclerotic heart disease of [place] coronary artery without angina pectoris Rheumatoid arthritis Diabetes type 2, controlled Hives Seasonal allergies Hyperlipidemia Chronic diastolic CHF (congestive heart failure) Home Medications ?Medication ?Instructions ?Recorded ?Last Taken ?Type multivitamin 1 tab PO DAILY vitamin 05/20/19 12/16/22 History blood-glucose meter (True Metrix #1 ea 02/03/20 Unknown Rx Air Glucose Meter kit) calcium citrate 200 mg PO DAILY supplement 05/21/20 12/16/22 History disability placard #1 ea 06/27/20 Unknown Rx aspirin 81 mg tablet,delayed 81 mg PO DAILY heart 08/13/20 12/11/22 History release (Adult Low Dose Aspirin) clopidogrel 75 mg tablet See Rx Instructions .Route 08/20/22 12/16/22 Rx .COMPLEX heart #90 TABLETS atorvastatin 80 mg tablet 80 mg PO QHS cholesterol #90 tabs 06/17/23 Unknown Rx blood sugar diagnostic (True #100 ea 06/17/23 Unknown Rx Metrix Glucose Test Strip) hydroxychloroquine 200 mg tablet See Rx Instructions .Route 06/17/23 Unknown Rx .COMPLEX immunosuppressant #180 tabs isosorbide mononitrate 60 mg 60 mg PO DAILY heart health #90 06/17/23 Unknown Rx tablet,extended release 24 hr tabs lancets 33 gauge #100 ea 06/17/23 Unknown Rx methotrexate sodium 2.5 mg tablet 12.5 mg PO QWEEK 10/26/23 Unknown History metoprolol tartrate 25 mg tablet 12.5 mg (1/2 x 25 mg) PO BID heart 11/18/23 Unknown Rx 3 months #180 tabs oxycodone 5 mg tablet 5 mg PO Q4H PRN PRN Pain Score 11/18/23 Unknown Rx 4-10 3 days #20 tabs divalproex 500 mg tablet,delayed 500 mg .Route .COMPLEX seizures 01/05/24 Unknown Rx release (Depakote) #90 tabs Handicap Placard #1 ea 01/07/24 Unknown Rx denosumab 60 mg/mL subcutaneous 60 mg subcut [id number] bone health 01/19/24 Unknown Rx syringe (Prolia) #1 mL sitagliptin phosphate 100 mg See Rx Instructions .Route 02/08/24 Unknown Rx tablet (Januvia) .COMPLEX diabetes #90 tabs gabapentin 300 mg capsule 300 mg PO QHS #30 caps 02/14/24 Unknown Rx Allergy/AdvReac Type Severity Reaction Status Date / Time prednisone AdvReac Severe Hives Verified 02/14/24 18:23 Family History Grandmother Alcoholism Cancer Arthritis Mother Alcoholism Diabetes blood clots Hypertension Grandfather Heart disease Sister Thyroid disorder Other Breast cancer Cervical cancer Colon cancer Surgical History History of coronary artery bypass graft History of coronary artery bypass graft x 3 History of cardiac catheterization History of left heart catheterization (09/20/18) History of coronary artery stent placement (03/22/18) History of carpal tunnel surgery History of section H/O: hysterectomy Social History household members: none housing: apartment Smoking Status: Never smoker second hand exposure: No alcohol intake: current alcohol intake frequency: holidays/special occasions only substance use type: does not use what type of physical activity do you participate in: none ROS ROS ED Constitutional Constitutional ED: Denies chills, fever(s) or sweats Eyes Eyes: Denies change in vision ENT ENT ED: Denies dysphagia or sore throat Cardiovascular Cardiovascular: Denies chest pain, leg edema, palpitations or racing heartbeat Respiratory/Chest Respiratory/Chest: Denies cough, dyspnea or dyspnea on exertion Gastrointestinal Gastrointestinal: Denies abdominal pain, diarrhea, nausea or vomiting Genitourinary Genitourinary ED: Denies dysuria, hematuria or urinary frequency Musculoskeletal Musculoskeletal: Reports extremity pain; Denies back pain or neck pain Integumentary Denies rash or wounds Neurologic Neurologic: Reports paresthesias; Denies headache(s) or weakness EXAM Physical Exam Const Vital Signs: 02/14/24 18:23 Temperature 97.2 F L Temperature Source Oral Pulse Rate 100 Respiratory Rate 18 Blood Pressure 159/74 H Blood Pressure Mean 102 Pulse Ox 100 Oxygen Delivery Method Room Air Positive well nourished and well developed General Appearance ED: well developed and NAD HEENT Reports moist mucous membranes normocephalic and atraumatic Eyes EOMs intact bilaterally and conjunctivae normal General Eye ED: Yes normal appearance of both eyes Neck no lymphadenopathy and supple General: Negative for tenderness Chest Wall Chest: Negative for tenderness Resp normal respiratory effort and normal air movement Effort and Inspection: symmetric chest movement; Negative for respiratory distress Cardio regular rate, regular rhythm and no murmurs Peripheral Pulses: pulses 2+ throughout GI normal to inspection, nondistended, normoactive bowel sounds and non-tender Palpation: Negative for guarding or rebound tenderness present Back/Spine no CVA tenderness and no thoracic nor lumbar tenderness Extremity Extremity Narrative: Right lower extremity: No swelling. There is tender palpation at the distal toes with no erythema no rash. Left lower extremity: No knee tenderness. There is ankle swelling more laterally ligamentous region. There is no redness or warmth. No pain with short arc movement. No midfoot tenderness. Skin is intact. General Extremety ED: Yes tenderness; Negative for edema General Extremity: Negative for edema Neuro oriented x3 and no sensory deficits noted Sensorium / Orientation: awake and alert Skin no rashes or lesions noted and no wounds MDM MDM MDM Narrative Medical decision making narrative: Interventions / MDM: Differential diagnosis: Paresthesias, neuropathy, sprain Diagnosis considered but do not suspect: No clinical septic joint. Fracture however x-ray negative. My EKG interpretation: N/A Imaging independently reviewed and interpreted by myself: Three-view x-ray left ankle: Soft tissue swelling, no fractures. External documents reviewed: N/A Test considered but not ordered:N/A ED course: Patient nontraumatic left ankle pain and swelling. There is no clinical septic joint. Tender in the ligamentous region. Started on Tylenol, x-ray ankle obtained. With her tingling of her right foot, discussed possibly neuropathy with her diabetes history. X-ray negative. Gatito wrap Aircast provided. Rediscussed with likely neuropathy symptoms and discussion for trial of gabapentin for which she agrees. Prescription written for nighttime use. Return precaution discussed. All questions were answered. Re-evaluation: stable Disposition discussed with patient/family/significant other: Patient Case discussed with consulting clinician: N/A This note was generated with [employer] dictation software. It may contain incorrect words, spelling, and punctuation that were not noted in checking the note before signing. Radiography Diagnostic Testing: Clinical Impression(s) from Imaging Studies Ankle X-Ray 02/14/24 19:02 IMPRESSION: There is soft tissue swelling. Electronically Signed: Moody Staton MD at 19:57 EDT Reading Location ID and State: [facility] / OR , Service support , Discharge Plan Triage Chief Complaint: Lower Extremity Injury ED Provider: Ulisses Chan Dx/Rx/DC Orders Clinical Impression: Left ankle sprain, Neuropathy Instructions: ED Neuropathy, Peripheral, ED Ankle Sprain (Adult) Prescriptions: New gabapentin 300 mg capsule 300 mg PO QHS Qty: 30 0RF No Action multivitamin Tablet 1 tab PO DAILY calcium citrate 200 mg (950 mg) tablet 200 mg PO DAILY aspirin [Adult Low Dose Aspirin] 81 mg tablet,delayed release (DR/EC) 81 mg PO DAILY (DME) lancets 33 gauge misc See Rx Instructions .Route Qty: 100 2RF Rx Instructions: As directed (DME) True Metrix Glucose Test Strip Strip See Rx Instructions .ROUTE .MEDSUPPLY Qty: 100 3RF Rx Instructions: check twice a day and as needed isosorbide mononitrate 60 mg tablet extended release 24 hr 60 mg PO DAILY Qty: 90 1RF hydroxychloroquine 200 mg tablet See Rx Instructions .ROUTE .COMPLEX Qty: 180 1RF Dose Instruction: TAKE 1 TABLET BY MOUTH TWICE DAILY WITH MEALS Rx Instructions: TAKE 1 TABLET BY MOUTH TWICE DAILY WITH MEALS atorvastatin 80 mg tablet 80 mg PO QHS Qty: 90 1RF methotrexate sodium 2.5 mg tablet 12.5 mg PO QWEEK Patient Comments: takes on thursday divalproex [Depakote] 500 mg tablet,delayed release (DR/EC) 500 mg .ROUTE .COMPLEX Qty: 90 6RF Rx Instructions: Take 1 tablet orally qAM and 2 tablets qPM oxycodone 5 mg Tablet 5 mg PO Q4H PRN PRN (Reason: Pain Score 4-10) 3 Days Qty: 20 0RF metoprolol tartrate 25 mg tablet 12.5 mg PO BID 90 Days Qty: 180 1RF (DME) blood-glucose meter [True Metrix Air Glucose Meter] Kit See Rx Instructions .ROUTE .MEDSUPPLY Qty: 1 0RF Rx Instructions: As directed (DME) disability placard See Rx Instructions .ROUTE .MEDSUPPLY Qty: 1 0RF Rx Instructions: As directed, Length of time: 5 years clopidogrel 75 mg tablet See Rx Instructions .ROUTE .COMPLEX Qty: 90 3RF Dose Instruction: TAKE 1 TABLET BY MOUTH EVERY DAY Rx Instructions: TAKE 1 TABLET BY MOUTH EVERY DAY (DME) Handicap Placard See Rx Instructions .ROUTE .MEDSUPPLY Qty: 1 0RF Rx Instructions: As directed, length of time 3 years Prolia 60 mg/mL syringe 60 mg subcut [id number] Qty: 1 2RF Januvia 100 mg tablet See Rx Instructions .ROUTE .COMPLEX Qty: 90 1RF Dose Instruction: TAKE 1 TABLET BY MOUTH DAILY Rx Instructions: TAKE 1 TABLET BY MOUTH DAILY Primary Care Provider: Kannan Garcia Referrals: Kannan Garcia MD [Primary Care Provider] - 1-2 Weeks Activity Restrictions/Additional Instructions: Left ankle x-ray negative. Gatito wrap and Aircast for support. Use Tylenol 1 g every 6 hours as needed. Neuropathy symptoms are right foot. Use gabapentin as prescribed. Follow your doctor for reevaluation. Print Language: Maltese Disposition Disposition: Home, Self Care Discharge Date/Time: 02/14/24 20:14
== END 2024-02-14 20:14 | disposition home or self-care (01) ==
PROVIDERS: Emergency Provider Emergency Medicine; PCP Internal Medicine; Visit Provider Emergency Medicine
DX: S93.492A Sprain of other ligament of left ankle, initial encounter (principal); I11.0 Hypertensive heart disease with heart failure; I50.32 Chronic diastolic (congestive) heart failure; E11.40 Type 2 diabetes mellitus with diabetic neuropathy, unspecified; X58.XXXA Exposure to other specified factors, initial encounter; E78.5 Hyperlipidemia, unspecified; I25.10 Atherosclerotic heart disease of native coronary artery without angina pectoris; Z95.1 Presence of aortocoronary bypass graft; Z95.5 Presence of coronary angioplasty implant and graft; Z79.02 Long term (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 of antithrombotics/antiplatelets; Z79.82 Long term (current) use of aspirin; Z79.84 Long term (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 of oral hypoglycemic drugs; Z79.899 Other long term (current) drug therapy
CPT/HCPCS: 73610; 99283

== ENCOUNTER → 2024-02-19 | Outpatient (CLI) | payer MEDICARE, SELFPAY ==
[2023-07-29 08:29] VITALS: BMI 30.2
[2024-02-19 11:10] LABS: Bacteria 0 SEEN /hpf (None Seen); Mucous, Urine 0 SEEN /hpf (<or=2+); Red Blood Cells-Urine 0 SEEN /hpf (0-5); Squamous Epithelial Cells - UA 0 SEEN /hpf (5-10); White Blood Cells 0 SEEN /hpf (0-5)
[2024-02-19 12:07] LABS: Color, Urine Yellow (Yellow); Glucose, Dipstick Normal (Normal); Ketone-Dipstick Negative (Negative); Leukocyte Esterase-Dipstick 25 /ul (Negative); Nitrite-Dipstick Negative (Negative); Occult Blood-Urine Negative /ul (Negative); Protein-Dipstick Negative (Negative); Specific Gravity, Urine 1.015 (1.002-1.030); Urine Bilirubin Dipstick Negative (Negative); Urine Clarity Clear (Clear); Urine Urobilinogen Normal (Normal)
== END | disposition home or self-care (01) ==
LOC: LABSPEC 11:09
PROVIDERS: PCP Internal Medicine; Referring Provider Nurse Practitioner; Visit Provider Nurse Practitioner
DX: R35.0 Frequency of micturition (principal)
CPT/HCPCS: 81001; 87086; 87088

== ENCOUNTER → 2024-04-20 | Outpatient (CLI) | payer MEDICARE, SELFPAY ==
[2023-07-29 08:29] VITALS: BMI 30.2
[2024-04-20 12:38] VITALS: PULSE 105; PULSE 106; PULSE 111; PULSE 113; PULSE 114; PULSE 115; PULSE 116; O2SAT 95; O2SAT 96; O2SAT 97
--- NOTE | 2024-04-25 11:03 | WT_ITS ---
PSN 6 Minute Walk Test 6 Minute Walk Test 6 Minute Walk Test: 6 Minute Walk Test PSN:6-Minute Walk Test Start: 04/20/24 12:38 Freq: Status: Active Protocol: [id number] Document 04/20/24 12:38 PABLO (Rec: 04/20/24 12:40 PABLO [id number]) 6 Minute Walk Test Date Performed 04/20/24 Time Performed 12:30 Height 5 ft 2 in Weight: 168 lb Weight in Pounds 168.[address]: Vanita Venegas FRONT DESK COORDINATOR Assistive device used: None Pre-test Oxygen Delivery Method Room Air Pulse Ox (%) 97 Pulse Rate (60-100 beats/min) 106 H Dyspnea [place] Scale (0-10) 0 Exertion [place] Scale (6-20) 6 1st minute Oxygen Delivery Method Room Air Pulse Ox (%) 95 Pulse Rate (60-100 beats/min) 114 H 2nd minute Oxygen Delivery Method Room Air Pulse Ox (%) 96 Pulse Rate (60-100 beats/min) 115 H Number of Rests Taken 1 3rd minute Oxygen Delivery Method Room Air Pulse Ox (%) 95 Pulse Rate (60-100 beats/min) 111 H 4th minute Oxygen Delivery Method Room Air Pulse Ox (%) 96 Pulse Rate (60-100 beats/min) 113 H 5th minute Oxygen Delivery Method Room Air Pulse Ox (%) 96 Pulse Rate (60-100 beats/min) 114 H 6th minute Oxygen Delivery Method Room Air Pulse Ox (%) 96 Pulse Rate (60-100 beats/min) 116 H Dyspnea [place] Scale (0-10) 3 Exertion [place] Scale (6-20) 13 Post-test Oxygen Delivery Method Room Air Pulse Ox (%) 96 Pulse Rate (60-100 beats/min) 105 H Full Laps Walked 12 Partial Lap, Number of Tiles Walked 16 Total Distance Walked (ft) 724 Interpretation Interpretation: The patient ambulated 724 feet over the course of 6 minutes beginning on room air without assistive devices. Pretesting oxygen saturation was noted to be 97% on room air. With ambulation, the leah oxygen saturation was 95%. Although there was evidence of impaired walk distance, there was no significant exertional oxygen desaturation. Recommendations Recommendations: There is no indication for the use of supplemental oxygen at this time.
== END | disposition home or self-care (01) ==
LOC: PSN 12:18
PROVIDERS: PCP Internal Medicine; Referring Provider Nurse Practitioner Acute Care; Visit Provider Nurse Practitioner Acute Care
DX: R09.02 Hypoxemia (principal)
CPT/HCPCS: 94618

== ENCOUNTER → 2024-05-16 | Outpatient (CLI) | payer MEDICARE, SELFPAY ==
[2023-07-29 08:29] VITALS: BMI 30.2
[2024-05-16 12:18] LABS: Hematocrit 35.5 % (37-47); Hemoglobin 11.4 g/dL (12.0-15.0); Mean Corp Hgb Conc 32.1 g/dL (32-36); Mean Corpuscular Hgb 31.6 pg (27.0-32.0); Mean Corpuscular Volume 98.3 fL (81-99); Mean Platelet Vol. 11.6 fl (6.2-12.0); Platelet Count 173 K/mm3 (150-450); RBC Distribution Width CV 13.5 % (11.6-14.6); RBC Distribution Width SD 49.5 fl (35.1-43.9); Red Blood Count 3.61 M/mm3 (4.2-5.4); White Blood Count 3.5 K/mm3 (4.4-11.0)
[2024-05-16 16:27] LABS: ALB/GLOB Ratio 0.9 RATIO (0.9-2.4); AST(SGOT) 15 U/L (15-37); Alanine Aminotransfer ALT/SGPT 22 U/L (13-56); Albumin, Serum 3.1 g/dL (3.2-5.0); Alkaline Phosphatase 66 U/L (45-117); Anion Gap 3 (5-15); BUN 22 mg/dL (7-18); BUN/Creat Ratio 23.7 RATIO (10-20); Calcium,Total 8.7 mg/dL (8.5-10.1); Chloride 111 mmol/L (98-107); Creatinine, Serum 0.93 mg/dL (0.55-1.02); EST Glomerular Filtration Rate 63 mL/min (>60); Est Glom Filt Rate - Afr Amer 76 mL/min (>60); Globulin 3.6 g/dL (2.2-4.2); Glucose 122 mg/dL (74-106); Potassium 4.3 mmol/L (3.5-5.1); Protein, Total 6.7 g/dL (6.4-8.2); Sodium Level 140 mmol/L (136-145)
[2024-05-16 16:54] LABS: Valproic Acid (Depakene) Level 74 ug/mL (50-100)
== END | disposition home or self-care (01) ==
LOC: MTLAB 10:51
PROVIDERS: PCP Internal Medicine; Referring Provider Psychiatry & Neurology Neurology; Visit Provider Psychiatry & Neurology Neurology
DX: M05.79 Rheumatoid arthritis with rheumatoid factor of multiple sites without organ or systems involvement (principal); M79.7 Fibromyalgia; M17.0 Bilateral primary osteoarthritis of knee; Z79.899 Other long term (current) drug therapy
CPT/HCPCS: 36415; 80053; 80164; 82140; 85027

== ENCOUNTER → 2024-06-07 | Outpatient (CLI) | payer MEDICARE, SELFPAY ==
[2023-07-29 08:29] VITALS: BMI 30.2
--- NOTE | 2024-06-07 10:54 | BI_ITS ---
PROCEDURE: SCRN MAMM (CAD)W/PAUL BILAT REASON FOR EXAM: F, Age 73 y/o, presents for annual screening mammography. TECHNIQUE: Bilateral screening digital breast tomosynthesis with 2D and 3D images. Computer aided detection. COMPARISON: 05/25/2023. FINDINGS: There are scattered areas of fibroglandular density. No suspicious masses, areas of developing architectural distortion, or suspicious calcifications. BI/SCRN MAMM (CAD)W/PAUL BILAT IMPRESSION: There is no mammographic evidence of malignancy. BI-RADS 1: NEGATIVE. RECOMMEND ANNUAL MAMMOGRAPHIC SCREENING. Follow-up code: Routine Follow-up The patient will be notified of the results by letter. Reading Location: [id number]
== END | disposition home or self-care (01) ==
LOC: OPBI 10:50
PROVIDERS: PCP Internal Medicine; Referring Provider Internal Medicine; Visit Provider Internal Medicine
DX: Z12.31 Encounter for screening mammogram for malignant neoplasm of breast (principal)
CPT/HCPCS: 77063; 77067

== ENCOUNTER → 2024-06-22 | Outpatient (CLI) | payer MEDICARE, SELFPAY ==
[2023-07-29 08:29] VITALS: BMI 30.2
[2024-06-22 12:24] LABS: Absolute Lymphocyte Count 1.44 X10^3/uL (0.83-4.51); Basophil# 0.02 X10^3/uL; Basophil% 0.5 % (0-1); Eosinophils% 2.6 % (0-5); Hematocrit 34.8 % (37-47); Hemoglobin 11.5 g/dL (12.0-15.0); Lymphocyte # 1.44 X10^3/ul (0.83-4.51); Lymphocyte % 37.7 % (19-41); Mean Corpuscular Hgb 32.3 pg (27.0-32.0); Mean Corpuscular Volume 97.8 fL (81-99); Mean Platelet Vol. 11.1 fl (6.2-12.0); Monocyte# 0.27 X10^3/uL; Monocyte% 7.1 % (0-10); NRBC Flagged by Analyzer 0 % (0-5); Neutrophil # 1.98 X10^3/uL (2.7-7.7); Neutrophil % 51.8 % (47-70); Platelet Count 192 K/mm3 (150-450); RBC Distribution Width CV 13.4 % (11.6-14.6); RBC Distribution Width SD 47.8 fl (35.1-43.9); Red Blood Count 3.56 M/mm3 (4.2-5.4); White Blood Count 3.8 K/mm3 (4.4-11.0)
[2024-06-22 12:40] LABS: ALB/GLOB Ratio 0.9 RATIO (0.9-2.4); AST(SGOT) 18 U/L (15-37); Alanine Aminotransfer ALT/SGPT 22 U/L (13-56); Albumin, Serum 3.1 g/dL (3.2-5.0); Alkaline Phosphatase 60 U/L (45-117); Anion Gap 6 (5-15); BUN 23 mg/dL (7-18); BUN/Creat Ratio 26.2 RATIO (10-20); Calcium,Total 8.7 mg/dL (8.5-10.1); Chloride 110 mmol/L (98-107); Creatinine, Serum 0.88 mg/dL (0.55-1.02); EST Glomerular Filtration Rate 68 mL/min (>60); Est Glom Filt Rate - Afr Amer 82 mL/min (>60); Globulin 3.5 g/dL (2.2-4.2); Glucose 103 mg/dL (74-106); Potassium 4.1 mmol/L (3.5-5.1); Protein, Total 6.6 g/dL (6.4-8.2); Sodium Level 141 mmol/L (136-145)
== END | disposition home or self-care (01) ==
LOC: MTLAB 10:54
PROVIDERS: PCP Internal Medicine; Referring Provider Internal Medicine Rheumatology; Visit Provider Internal Medicine Rheumatology
DX: M79.7 Fibromyalgia (principal); M17.0 Bilateral primary osteoarthritis of knee; Z79.899 Other long term (current) drug therapy
CPT/HCPCS: 36415; 80053; 85025

== ENCOUNTER 2024-07-14 16:17 | Emergency (ER) | payer MEDICARE, SELFPAY ==
[2023-07-29 08:29] VITALS: BMI 30.2
[2024-07-14 16:18] VITALS: BP 148/76; PULSE 104; RESP 17; TEMP 36.8; O2SAT 100; BMI 30.7
--- NOTE | 2024-07-14 16:24 | EKG12_ITS ---
Test Reason : Blood Pressure : */* mmHG Vent. Rate : 102 BPM Atrial Rate : 102 BPM P-R Int : 142 ms QRS Dur : 82 ms QT Int : 332 ms P-R-T Axes : 67 18 38 degrees QTcB Int : 432 ms Sinus tachycardia Possible Left atrial enlargement Nonspecific T wave abnormality Abnormal ECG Confirmed by NORAH ZUNIGA, JAMILA ([id number]), editor map CLAUDIA HECTOR ([id number]) on 07/18/2024 10:51:28 AM Referred By: Ulisses Chan Confirmed By: JAMILA ALMAZAN MD
[2024-07-14 16:37] LABS: Absolute Lymphocyte Count 1.82 X10^3/uL (0.83-4.51); Absolute Neutrophil Count 2.4 X10^3/uL (2.0-7.7); Basophil# 0.01 X10^3/uL; Basophil% 0.2 % (0-1); Eosinophil# 0.08 X10^3/uL; Eosinophils% 1.7 % (0-5); Hematocrit 35.2 % (37-47); Hemoglobin 11.8 g/dL (12.0-15.0); Lymphocyte # 1.82 X10^3/ul (0.83-4.51); Lymphocyte % 38.7 % (19-41); Mean Corp Hgb Conc 33.5 g/dL (32-36); Mean Corpuscular Hgb 32.3 pg (27.0-32.0); Mean Corpuscular Volume 96.4 fL (81-99); Mean Platelet Vol. 10.8 fl (6.2-12.0); Monocyte# 0.38 X10^3/uL; Monocyte% 8.1 % (0-10); NRBC Flagged by Analyzer 0 % (0-5); Neutrophil % 51.1 % (47-70); Platelet Count 208 K/mm3 (150-450); RBC Distribution Width CV 13.2 % (11.6-14.6); RBC Distribution Width SD 47.2 fl (35.1-43.9); Red Blood Count 3.65 M/mm3 (4.2-5.4); White Blood Count 4.7 K/mm3 (4.4-11.0)
[2024-07-14 17:04] LABS: Anion Gap 12 (5-15); BUN 20 mg/dL (4-19); BUN/Creat Ratio 21.2 RATIO (10-20); Calcium,Total 9.4 mg/dL (7.6-11.0); Carbon Dioxide 23.7 mmol/L (21.0-32.0); Chloride 106 mmol/L (98-108); Creatinine, Serum 0.94 mg/dL (0.70-1.20); EST Glomerular Filtration Rate 65 (>60); Estimated Creatinine Clearance 52.46 ml/min (50-250); Glucose 141 mg/dL (70-99); Potassium 3.9 mmol/L (3.3-5.1); Sodium Level 142 mmol/L (133-145); Troponin T High Sensitivity 9 ng/L (<=14)
[2024-07-14] MEDS: HYDROcodone Bitartrate/Apap 5/325 Tablet PO (17:06)
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
[2024-07-14 17:17] VITALS: BP 109/92; PULSE 91; RESP 16; O2SAT 95
--- NOTE | 2024-07-14 17:30 | CT_ITS ---
PROCEDURE: CHEST WITHOUT CONTRAST REASON FOR EXAM: STERNAL INJURY TECHNIQUE: Chest CT without contrast. COMPARISON: None. FINDINGS: Hardware: Status post median sternotomy. Lymph nodes: No mediastinal hilar or axillary lymphadenopathy. Heart and Vasculature: Normal heart size. No pericardial effusion. Thoracic aorta and pulmonary arteries have normal contours; noncontrast technique limits evaluation. Coronary Artery Calcifications: Present Lungs and Airways: The lungs are normally expanded and clear. Pleura: No pleural effusion. No pneumothorax. Upper Abdomen: Visualized portions of the upper abdominal viscera are unremarkable. Bones: Bone windows are unremarkable. CT/Chest without Contrast IMPRESSION: Normal CT of the chest without contrast. One or more dose reduction techniques were used (e.g., Automated exposure contr ol, adjustment of the mA and/or kV according to patient size, use of iterative reconstruction technique). Reading Location: [id number]
[2024-07-14 18:00] VITALS: BP 125/66
[2024-07-14 19:00] VITALS: BP 132/66; PULSE 80; RESP 18; O2SAT 98
[2024-07-14 19:16] LABS: Troponin T High Sens 2 HR 11 ng/L (<=14)
[2024-07-14] MEDS: Ketorolac 15 MG/ML Vial IV (19:41)
[2024-07-14 20:00] VITALS: BP 107/80; PULSE 85; RESP 17
[2024-07-14 20:20] VITALS: BP 107/80; PULSE 85; RESP 17; TEMP 36.6; O2SAT 98
== END 2024-07-14 20:42 | disposition home or self-care (01) ==
PROVIDERS: Emergency Provider Emergency Medicine; PCP Internal Medicine; Referring Provider Emergency Medicine; Visit Provider Emergency Medicine
DX: S20.219A Contusion of unspecified front wall of thorax, initial encounter (principal); I11.0 Hypertensive heart disease with heart failure; I50.32 Chronic diastolic (congestive) heart failure; E11.9 Type 2 diabetes mellitus without complications; Y00.XXXA Assault by blunt object, initial encounter; I25.10 Atherosclerotic heart disease of native coronary artery without angina pectoris; E78.5 Hyperlipidemia, unspecified; Z95.1 Presence of aortocoronary bypass graft; Z95.5 Presence of coronary angioplasty implant and graft; Z79.82 Long term (current) use of aspirin; Z79.84 Long term (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 of oral hypoglycemic drugs; Z79.899 Other long term (current) drug therapy
CPT/HCPCS: 71250; 80048; 84484; 85025; 93005; 96374; 99285; A4216

== ENCOUNTER 2024-07-15 12:11 | Emergency (ER) | payer MEDICARE, SELFPAY ==
[2023-07-29 08:29] VITALS: BMI 30.2
[2024-07-15 12:12] VITALS: BP 186/96; PULSE 111; RESP 18; TEMP 37; O2SAT 99; BMI 30.6
--- NOTE | 2024-07-15 14:18 | RAD_ITS ---
EXAM: XR Chest, 2 Views CLINICAL INDICATION: ARRYTHMIA TECHNIQUE: Frontal and lateral views of the chest. COMPARISON: No relevant prior studies available. FINDINGS: LUNGS AND PLEURAL SPACES: Unremarkable. No consolidation. No pneumothorax. HEART: Unremarkable. No cardiomegaly. MEDIASTINUM: Unremarkable. Normal mediastinal contour. BONES/JOINTS: Unremarkable. No acute fracture. RAD/Chest PA and Lateral IMPRESSION: No acute cardiopulmonary process. Reading Location: [facility]
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
[2024-07-15] MEDS: morphine 10 MG/ML Syringe 8 MG IM (15:00)
[2024-07-15] MEDS: Ondansetron ODT 4 MG Tablet PO (15:00)
[2024-07-15 16:16] VITALS: BP 161/79; PULSE 98; RESP 18; TEMP 36.4; O2SAT 99
== END 2024-07-15 16:28 | disposition home or self-care (01) ==
PROVIDERS: Emergency Provider Emergency Medicine; PCP Internal Medicine; Visit Provider Emergency Medicine
DX: S20.219A Contusion of unspecified front wall of thorax, initial encounter (principal); I11.0 Hypertensive heart disease with heart failure; I50.32 Chronic diastolic (congestive) heart failure; E11.9 Type 2 diabetes mellitus without complications; Y00.XXXA Assault by blunt object, initial encounter; Y92.019 Unspecified place in single-family (private) house as the place of occurrence of the external cause; I25.10 Atherosclerotic heart disease of native coronary artery without angina pectoris; E78.5 Hyperlipidemia, unspecified; Z95.1 Presence of aortocoronary bypass graft; Z95.5 Presence of coronary angioplasty implant and graft; Z79.82 Long term (current) use of aspirin; Z79.84 Long term (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 of oral hypoglycemic drugs; Z79.899 Other long term (current) drug therapy
CPT/HCPCS: 71046; 93005; 96372; 99283

== ENCOUNTER 2024-09-16 15:07 | Emergency (ER) | payer MEDICARE, SELFPAY ==
[2023-07-29 08:29] VITALS: BMI 30.2
[2024-09-16] VITALS (9 sets, daily range): BP systolic 134–157; BP diastolic 62–83; PULSE 71–92; RESP 16–25; TEMP 36.7–36.8; O2SAT 97–100
--- NOTE | 2024-09-16 15:23 | ED.VIS.CHEST ---
HPI History of Present Illness Chief Complaint: Chest Pain Informant: patient Onset/Context/Timing Onset: Today Activity at onset: gradual Timing: Intermittent Quality: Positive for Pressure Location: Left Parasternal and Left Chest Worsened By: Breathing Relieved By: Nothing Associated Symptoms: Positive for Nausea and Palpitations; Negative for Vomiting, Diaphoresis, Dyspnea, Cough, Fever, Lightheadedness or Acid Reflux Narrative Narrative: Patient presents with chest pain that began today. Patient states it is gradually gotten worse. Patient states it has been intermittent. Patient describes it as a pressure. Patient states it is mainly over the left side of her chest. Patient states it is worse with deep breathing. Patient admits to some nausea and palpitations with it. Patient also admits to some increased lower extremity edema. Patient states her feet, ankles, and lower legs are more swollen today than usual. Patient states she did travel to [place] recently but states she traveled by plane and did not have a prolonged car ride. CVD Risk Factors: Positive for Hypertension, Diabetes and Hypercholesterolemia; Negative for Family History 1' </=55 or Smoking PE Risk Factors: Negative for Recent Travel/Surgery, Recent Immobilization, Prior DVT or PE, Cancer or OCP + Smoking + >/=35 PFSH [facility] Medical History Vertigo Chest pain Dyspnea on exertion Wears partial dentures Injury of head and neck Gastric reflux Encounter for transesophageal echo performed as part of open chest procedure History of echocardiogram History of stress test Tremor Retained suture Chest wall tenderness Fatigue Flu vaccine need Lower extremity edema History of coronary artery disease History of hypertension Left ankle pain Right hip pain Right groin pain Memory changes Left shoulder pain Cervical radiculopathy Cough Health care maintenance Right shoulder pain Therapeutic drug monitoring Osteoporosis Compression fracture of lumbar spine, non-traumatic Dysuria Dysuria Urinary frequency Acute back pain Personal history of colonic polyps GERD (gastroesophageal reflux disease) Hyperglycemia due to type 2 diabetes mellitus Wears glasses Diabetes Arthritis Anemia Non-smoker CPAP (continuous positive airway pressure) dependence Sleep apnea Shortness of breath on exertion Cardiology follow-up encounter Abdominal pain Osteoarthritis Congestive heart failure (CHF) Routine health maintenance Colon cancer screening Foreign body in stomach Seizure disorder Type 2 diabetes mellitus Diabetes mellitus type 2 in nonobese Obesity Urinary frequency Conversion disorder Obstructive sleep apnea Non-toxic goiter Essential (primary) hypertension RIGHT FOOT HEEL SPUR Atherosclerotic heart disease of [place] coronary artery without angina pectoris Rheumatoid arthritis Diabetes type 2, controlled Hives Seasonal allergies Hyperlipidemia Chronic diastolic CHF (congestive heart failure) Home Medications ?Medication ?Instructions ?Recorded ?Last Taken ?Type multivitamin 1 tab PO DAILY vitamin 05/20/19 12/16/22 History blood-glucose meter (True Metrix #1 ea 02/03/20 Unknown Rx Air Glucose Meter kit) calcium citrate 200 mg PO DAILY supplement 05/21/20 12/16/22 History disability placard #1 ea 06/27/20 Unknown Rx aspirin 81 mg tablet,delayed 81 mg PO DAILY heart 08/13/20 12/11/22 History release (Adult Low Dose Aspirin) blood sugar diagnostic (True #100 ea 06/17/23 Unknown Rx Metrix Glucose Test Strip) hydroxychloroquine 200 mg tablet See Rx Instructions .Route 06/17/23 Unknown Rx .COMPLEX immunosuppressant #180 tabs lancets 33 gauge #100 ea 06/17/23 Unknown Rx methotrexate sodium 2.5 mg tablet 12.5 mg PO QWEEK 10/26/23 Unknown History oxycodone 5 mg tablet 5 mg PO Q4H PRN PRN Pain Score 11/18/23 Unknown Rx 4-10 3 days #20 tabs Handicap Placard #1 ea 01/07/24 Unknown Rx denosumab 60 mg/mL subcutaneous 60 mg subcut [id number] bone health 01/19/24 Unknown Rx syringe (Prolia) #1 mL gabapentin 300 mg capsule 300 mg PO QHS #30 caps 02/14/24 Unknown Rx atorvastatin 80 mg tablet 80 mg PO QHS cholesterol #90 tabs 03/28/24 Unknown Rx metoprolol tartrate 25 mg tablet 25 mg PO QDAY heart #90 tabs 04/19/24 Unknown Rx divalproex 500 mg tablet,delayed 500 mg .Route .COMPLEX seizures 05/16/24 Unknown Rx release (Depakote) #90 tabs sitagliptin phosphate 100 mg See Rx Instructions .Route 05/20/24 Unknown Rx tablet (Januvia) .COMPLEX diabetes #90 tabs hydrocodone-acetaminophen 5-325mg 1 tab PO Q6H PRN PRN Pain 3 days 07/14/24 Unknown Rx 5mg-325mg #10 TABLETS ibuprofen 600 mg tablet 600 mg PO Q6H PRN PRN pain #20 07/14/24 Unknown Rx TABLETS Allergy/AdvReac Type Severity Reaction Status Date / Time prednisone AdvReac Severe Hives Verified 09/16/24 15:08 Family History Grandmother Alcoholism Cancer Arthritis Mother Alcoholism Diabetes blood clots Hypertension Grandfather Heart disease Sister Thyroid disorder Other Breast cancer Cervical cancer Colon cancer Surgical History History of coronary artery bypass graft History of coronary artery bypass graft x 3 History of cardiac catheterization History of left heart catheterization (09/20/18) History of coronary artery stent placement (03/22/18) History of carpal tunnel surgery History of section H/O: hysterectomy Social History household members: none housing: apartment Smoking Status: Never smoker second hand exposure: No alcohol intake: current alcohol intake frequency: holidays/special occasions only substance use type: does not use what type of physical activity do you participate in: none ROS ROS ED Constitutional Constitutional ED: Denies chills or fever(s) Eyes Eyes: Denies blurry vision or change in vision ENT ENT ED: Denies rhinorrhea or sore throat Cardiovascular Cardiovascular: Reports chest pain; Denies palpitations Respiratory/Chest Respiratory/Chest: Denies cough or dyspnea Gastrointestinal Gastrointestinal: Reports nausea; Denies vomiting Genitourinary Genitourinary ED: Reports urinary frequency; Denies dysuria or hematuria Musculoskeletal Musculoskeletal: Reports neck pain; Denies back pain Integumentary Denies abscess or rash Neurologic Neurologic: Reports headache(s); Denies weakness Allergic/Immunologic Allergic/Immunologic ED: Denies mouth swelling or urticaria EXAM Physical Exam Const Vital Signs: 09/16/24 15:08 09/16/24 15:51 09/16/24 15:53 Temperature 98.1 F Temperature Source Oral Pulse Rate 92 Respiratory Rate 18 Respiratory Effort Normal Blood Pressure 148/68 H Blood Pressure Mean 94 Pulse Ox 100 Oxygen Delivery Method Room Air Room Air 09/16/24 16:19 09/16/24 16:21 09/16/24 16:29 Temperature Temperature Source Pulse Rate 92 90 89 Respiratory Rate 25 H Respiratory Effort Blood Pressure 157/74 H 157/74 H 153/82 H Blood Pressure Mean 101 Pulse Ox 100 Oxygen Delivery Method Room Air 09/16/24 16:49 09/16/24 17:00 09/16/24 18:00 Temperature Temperature Source Pulse Rate 74 71 74 Respiratory Rate 16 16 Respiratory Effort Blood Pressure 134/69 H 134/69 H 135/67 H Blood Pressure Mean 90 89 Pulse Ox 97 100 Oxygen Delivery Method Room Air Room Air 09/16/24 19:00 Temperature Temperature Source Pulse Rate 84 Respiratory Rate 21 H Respiratory Effort Blood Pressure 141/62 H Blood Pressure Mean 88 Pulse Ox 100 Oxygen Delivery Method Room Air Positive well nourished and well developed General Appearance ED: well developed and NAD HEENT Reports moist mucous membranes Neck supple and no JVD Resp normal respiratory effort and clear to auscultation bilaterally Cardio regular rate and regular rhythm GI soft to palpation, non-tender and non-distended GI Narrative: Rectal exam showed good sphincter tone. There is brown stool noted. There is no hemorrhoid noted. There is no bleeding noted. There are no masses palpated. Rectal Exam: visual inspection normal and normal sphincter tone Extremity General Extremety ED: Yes edema and tenderness General Extremity: edema bilateral lower extremity Details: moderate Neuro oriented x3, CN's II-XII intact bilaterally and no sensory deficits noted Sensorium / Orientation: awake and alert Motor Exam: strength 5/5 throughout Psych mental status grossly normal Heart Score History: Slightly/Non-Suspicious ECG: Normal Age: >/= 65 years Risk Factors: >/= 3 Risk Factors or History of CAD Troponin: </= Normal Limit Score: 4 MDM MDM MDM Narrative Medical decision making narrative: Differential diagnosis includes cardiac dysrhythmia, cardiac ischemia, pneumonia, bronchitis, congestive heart failure, gastroesophageal reflux disease, musculoskeletal pain, and anxiety. EKG will be obtained to assess for cardiac dysrhythmia and cardiac ischemia. Chest x-ray will be obtained to assess for pneumonia, bronchitis, and congestive heart failure. CBC will be obtained to assess for leukocytosis and anemia. Basic metabolic profile will be obtained to assess for electrolyte abnormality and renal function. High-sensitivity troponin will be obtained to assess for cardiac ischemia. 2-hour repeat high-sensitivity troponin will be obtained to assess for ongoing cardiac ischemia. BNP will be obtained to assess for congestive heart failure. History & Record Review Additional record(s) reviewed:: Prior outpatient record, Prior ED visit and Prior labs Lab Data Attestation: I reviewed the patient's lab results. Lab results narrative: CBC was reviewed. There is an anemia with a hemoglobin of 8.6 and hematocrit 25.8. This is decreased from previous result. Basic metabolic profile was reviewed. BUN was minimally elevated at 22. Creatinine was normal at 0.77. Initial high-sensitivity troponin was reviewed and was normal at 8. proBNP was reviewed and was normal at 239. 2-hour repeat high-sensitivity troponin was reviewed and was normal at 7. Stool was negative for occult blood. Labs: Laboratory Results - last 24 hr 09/16/24 09/16/24 16:15 18:23 WBC 4.2 L RBC 2.65 L Hgb 8.6 L Hct 25.8 L MCV 97.4 MCH 32.5 H MCHC 33.3 RDW Std Deviation 48.9 H RDW Coeff of [place] 13.8 Plt Count 117 L MPV 11.6 Immature Gran % (Auto) 0.500 Neut % (Auto) 55.0 Lymph % (Auto) 33.3 [place] % (Auto) 8.6 Eos % (Auto) 2.4 Baso % (Auto) 0.2 Absolute Neuts (auto) 2.3 Absolute Lymphs (auto) 1.40 Nucleated RBC % 0 Sodium 142 Potassium 3.7 Chloride 109 H Carbon Dioxide 23.0 Anion Gap 10 BUN 22 H Creatinine 0.77 Est GFR (MDRD) Non-Af 82 BUN/Creatinine Ratio 28.6 H Glucose 76 Calcium 8.7 Troponin T High Sens 8 D Troponin T Hi Sens 2 Hr 7 NT pro BNP II 239 Radiography Chest X-Ray - ED: 1 View, Read by ED Physician, Read by Radiologist and No Acute Disease Diagnostic Testing: Clinical Impression(s) from Imaging Studies Chest X-Ray 09/16/24 16:25 IMPRESSION: No acute cardiopulmonary process. Reading Location: [facility] Portable 1 view chest x-ray was obtained. On my independent interpretation, lung wallace are clear. There is normal cardiac silhouette. Bony thorax is normal. There is no acute process noted. Radiologist also interpreted the x-ray and agrees. EKG Initial EKG: Attestation: I personally reviewed and interpreted this EKG as follows: Interpretation: Sinus Rhythm (89) and No Acute Injury Pattern Comments: EKG was obtained. On my independent interpretation, it showed a normal sinus rhythm with a rate of 89. FL interval, QRS interval, and QTc intervals were all normal. [place] was normal. There are no acute ST or T wave changes. Prior EKG tracings: available for review Prior: Unchanged (07/15/2024) Treatment and Re-Evaluation :: Patient was given aspirin. Patient was given nitroglycerin. Patient had no change of her pain with nitroglycerin. Patient was advised of her findings. Patient has a HEART score of 4. This is due to her age and history of coronary artery bypass graft. Patient was instructed to keep her legs elevated. Patient was instructed to follow-up with her primary care physician in 3 to 5 days. Patient was instructed to return if worse in any way. Patient understood and was agreeable with plan. All questions were answered. Discharge Plan Triage Chief Complaint: Chest Pain ED Provider: Azam Frey Dx/Rx/DC Orders Clinical Impression: Peripheral edema, Chest pain, Anemia Instructions: ED Chest Pain, Uncertain Cause, ED Peripheral Edema, Bilateral Prescriptions: No Action multivitamin Tablet 1 tab PO DAILY calcium citrate 200 mg (950 mg) tablet 200 mg PO DAILY aspirin [Adult Low Dose Aspirin] 81 mg tablet,delayed release (DR/EC) 81 mg PO DAILY metoprolol tartrate 25 mg tablet 25 mg PO QDAY Qty: 90 3RF (DME) lancets 33 gauge misc See Rx Instructions .Route Qty: 100 2RF Rx Instructions: As directed (DME) True Metrix Glucose Test Strip Strip See Rx Instructions .ROUTE .MEDSUPPLY Qty: 100 3RF Rx Instructions: check twice a day and as needed hydroxychloroquine 200 mg tablet See Rx Instructions .ROUTE .COMPLEX Qty: 180 1RF Dose Instruction: TAKE 1 TABLET BY MOUTH TWICE DAILY WITH MEALS Rx Instructions: TAKE 1 TABLET BY MOUTH TWICE DAILY WITH MEALS methotrexate sodium 2.5 mg tablet 12.5 mg PO QWEEK Patient Comments: takes on thursdayuvia 100 mg tablet See Rx Instructions .ROUTE .COMPLEX Qty: 90 1RF Dose Instruction: TAKE 1 TABLET BY MOUTH DAILY Rx Instructions: TAKE 1 TABLET BY MOUTH DAILY divalproex [Depakote] 500 mg tablet,delayed release (DR/EC) 500 mg .ROUTE .COMPLEX Qty: 90 6RF Rx Instructions: Take 1 tablet orally qAM and 2 tablets qPM oxycodone 5 mg Tablet 5 mg PO Q4H PRN PRN (Reason: Pain Score 4-10) 3 Days Qty: 20 0RF hydrocodone-acetaminophen 5-325 mg tablet 1 tab PO Q6H PRN PRN (Reason: Pain) 3 Days Qty: 10 0RF ibuprofen 600 mg tablet 600 mg PO Q6H PRN PRN (Reason: pain) Qty: 20 0RF gabapentin 300 mg capsule 300 mg PO QHS Qty: 30 0RF (DME) blood-glucose meter [True Metrix Air Glucose Meter] Kit See Rx Instructions .ROUTE .MEDSUPPLY Qty: 1 0RF Rx Instructions: As directed (DME) disability placard See Rx Instructions .ROUTE .MEDSUPPLY Qty: 1 0RF Rx Instructions: As directed, Length of time: 5 years (DME) Handicap Placard See Rx Instructions .ROUTE .MEDSUPPLY Qty: 1 0RF Rx Instructions: As directed, length of time 3 years Prolia 60 mg/mL syringe 60 mg subcut [id number] Qty: 1 2RF atorvastatin 80 mg tablet 80 mg PO QHS Qty: 90 1RF Primary Care Provider: Kannan Garcia Referrals: Kannan Garcia MD [Primary Care Provider] - 3-5 Days Print Language: Syriac Disposition Disposition: Home, Self Care
--- NOTE | 2024-09-16 15:51 | EKG12_ITS ---
Test Reason : CP Blood Pressure : */* mmHG Vent. Rate : 89 BPM Atrial Rate : 89 BPM P-R Int : 140 ms QRS Dur : 80 ms QT Int : 370 ms P-R-T Axes : 57 9 50 degrees QTcB Int : 450 ms Normal sinus rhythm Normal ECG Confirmed by RADHIKA ZUNIGA, KELLY ([id number]), news editor ADIA ARDON ([id number]) on 09/19/2024 8:48:52 AM Referred By: TA/CARMEL Confirmed By: KELLY GARRIDO MD
[2024-09-16] MEDS: Aspirin 81 MG TAB.CHEW 324 MG PO (16:19)
[2024-09-16] MEDS: Nitroglycerin SL (ED/IMG/CATH) 0.4 MG TABLET SL ×3 (16:19→16:49)
[2024-09-16 16:24] LABS: Absolute Neutrophil Count 2.3 X10^3/uL (2.0-7.7); Basophil# 0.01 X10^3/uL; Basophil% 0.2 % (0-1); Eosinophils% 2.4 % (0-5); Hematocrit 25.8 % (37-47); Hemoglobin 8.6 g/dL (12.0-15.0); Lymphocyte % 33.3 % (19-41); Mean Corp Hgb Conc 33.3 g/dL (32-36); Mean Corpuscular Hgb 32.5 pg (27.0-32.0); Mean Corpuscular Volume 97.4 fL (81-99); Mean Platelet Vol. 11.6 fl (6.2-12.0); Monocyte# 0.36 X10^3/uL; Monocyte% 8.6 % (0-10); NRBC Flagged by Analyzer 0 % (0-5); Neutrophil # 2.32 X10^3/uL (2.7-7.7); Platelet Count 117 K/mm3 (150-450); RBC Distribution Width CV 13.8 % (11.6-14.6); RBC Distribution Width SD 48.9 fl (35.1-43.9); Red Blood Count 2.65 M/mm3 (4.2-5.4); White Blood Count 4.2 K/mm3 (4.4-11.0)
--- NOTE | 2024-09-16 16:25 | RAD_ITS ---
EXAM: XR Chest, 1 View CLINICAL INDICATION: CHEST PAIN TECHNIQUE: Frontal view of the chest. COMPARISON: No relevant prior studies available. FINDINGS: LUNGS AND PLEURAL SPACES: Unremarkable. No consolidation. No pneumothorax. HEART: Unremarkable. No cardiomegaly. MEDIASTINUM: Unremarkable. Normal mediastinal contour. BONES/JOINTS: Unremarkable. No acute fracture. RAD/Chest 1 View (Portable) IMPRESSION: No acute cardiopulmonary process. Reading Location: [id number]
[2024-09-16 16:46] LABS: Anion Gap 10 (5-15); BUN 22 mg/dL (4-19); BUN/Creat Ratio 28.6 RATIO (10-20); Calcium,Total 8.7 mg/dL (7.6-11.0); Chloride 109 mmol/L (98-108); Creatinine, Serum 0.77 mg/dL (0.70-1.20); EST Glomerular Filtration Rate 82 (>60); Glucose 76 mg/dL (70-99); Potassium 3.7 mmol/L (3.3-5.1); Pro- Brain NATRIURETIC PEPTIDE 239 pg/mL (<=900); Sodium Level 142 mmol/L (133-145); Troponin T High Sensitivity 8 ng/L (<=14)
[2024-09-16 19:27] LABS: Troponin T High Sens 2 HR 7 ng/L (<=14)
== END 2024-09-16 19:41 | disposition home or self-care (01) ==
PROVIDERS: Emergency Provider Emergency Medicine; PCP Internal Medicine; Visit Provider Emergency Medicine
DX: M79.89 Other specified soft tissue disorders (principal); I11.0 Hypertensive heart disease with heart failure; I50.32 Chronic diastolic (congestive) heart failure; E11.9 Type 2 diabetes mellitus without complications; R07.9 Chest pain, unspecified; D64.9 Anemia, unspecified; I25.10 Atherosclerotic heart disease of native coronary artery without angina pectoris; G47.33 Obstructive sleep apnea (adult) (pediatric)
CPT/HCPCS: 71045; 80048; 82274; 83880; 84484; 85025; 93005; 99285; A4216

== ENCOUNTER → 2024-09-22 | Outpatient (CLI) | payer MEDICARE, SELFPAY ==
[2023-07-29 08:29] VITALS: BMI 30.2
[2024-09-22 12:32] LABS: Erythrocyte Sedimentation Rate 5 mm/hr (0-30)
[2024-09-22 12:44] LABS: AST(SGOT) 21 U/L (<=31); Alanine Aminotransfer ALT/SGPT 19 U/L (<=34); Albumin, Serum 3.8 g/dL (3.4-4.8); Alkaline Phosphatase 71 U/L (35-104); Bilirubin, Direct 0.15 mg/dL (0.00-0.30); Cholesterol 206 mg/dL (<=200); Globulin 2.7 g/dL (2.2-4.2); High Density Lipoprotein 58 mg/dL; Low Density Lipoprotein Calc. 135 mg/dL; Protein, Total 6.5 g/dL (5.9-8.4); Total Bilirubin 0.33 mg/dL (0.00-1.30); Triglycerides 69 mg/dL; Very Low Density Lipoprotein 14 mg/dL (5-40); cholesterol:hdl ratio screen 3.58
[2024-09-22 12:45] LABS: Anion Gap 11 (5-15); BUN 23 mg/dL (4-19); BUN/Creat Ratio 26.3 RATIO (10-20); Calcium,Total 8.4 mg/dL (7.6-11.0); Carbon Dioxide 21.6 mmol/L (21.0-32.0); Chloride 108 mmol/L (98-108); Creatinine, Serum 0.86 mg/dL (0.70-1.20); EST Glomerular Filtration Rate 72 (>60); Glucose 105 mg/dL (70-99); Potassium 4.1 mmol/L (3.3-5.1); Sodium Level 140 mmol/L (133-145)
[2024-09-22 12:46] LABS: Absolute Lymphocyte Count 1.43 X10^3/uL (0.83-4.51); Absolute Neutrophil Count 2.4 X10^3/uL (2.0-7.7); Basophil# 0.03 X10^3/uL; Basophil% 0.7 % (0-1); CRP 3.46 mg/L (0.0-3.0); Eosinophils% 2.3 % (0-5); Hematocrit 33.7 % (37-47); Hemoglobin 11.2 g/dL (12.0-15.0); Lymphocyte # 1.43 X10^3/ul (0.83-4.51); Lymphocyte % 33.1 % (19-41); Mean Corp Hgb Conc 33.2 g/dL (32-36); Mean Corpuscular Hgb 32.5 pg (27.0-32.0); Mean Corpuscular Volume 97.7 fL (81-99); Mean Platelet Vol. 12.2 fl (6.2-12.0); Monocyte# 0.35 X10^3/uL; Monocyte% 8.1 % (0-10); NRBC Flagged by Analyzer 0 % (0-5); Neutrophil # 2.39 X10^3/uL (2.7-7.7); Neutrophil % 55.3 % (47-70); Platelet Count 155 K/mm3 (150-450); RBC Distribution Width CV 13.9 % (11.6-14.6); RBC Distribution Width SD 49.9 fl (35.1-43.9); Red Blood Count 3.45 M/mm3 (4.2-5.4); Rheumatoid Factor < 10.0 IU/mL (<15); White Blood Count 4.3 K/mm3 (4.4-11.0)
[2024-09-26 11:08] LABS: ANTINUCLEAR ANTIBODIES DIRECT Negative (Negative)
== END | disposition home or self-care (01) ==
LOC: BIMLAB 10:44
PROVIDERS: Student in an Organized Health Care Education/Training Program; PCP Internal Medicine; Referring Provider Internal Medicine; Visit Provider Internal Medicine
DX: I10 Essential (primary) hypertension (principal); M06.9 Rheumatoid arthritis, unspecified; D64.9 Anemia, unspecified; E78.00 Pure hypercholesterolemia, unspecified
CPT/HCPCS: 36415; 80048; 80061; 80076; 85025; 85652; 86038; 86140; 86225; 86431

== ENCOUNTER → 2024-10-20 | Outpatient (CLI) | payer MEDICARE, SELFPAY ==
[2023-07-29 08:29] VITALS: BMI 30.2
--- OUTSIDE RECORDS SUMMARY | 2024-10-20 20:05 | XMS RPT_ITS | CCD ---
Author Organization [facility] CliniSyut Care Team Providers Care Stone Rubber Name Role Phone CHRIS YAO Unavailable Unavailable SHAD BRISENO Unavailable Unavailable CHRIS YAO Unavailable Unavailable IMCA Unavailable Unavailable CHRIS YAO Unavailable Unavailable IMCA Unavailable Unavailable MAYO FINLEYLEY Referring Unavailable FINLEY, JOSSUE Attending Unavailable FINLEY, JOSSUE Referring Unavailable JNEELLE, TILA (PT) Attending Unavailable TESTRAKE, MYNOR Referring Unavailable JENELLE, TILA (PT) Attending Unavailable TESTRAKE, MYNOR Referring Unavailable JENELLE, TILA (PT) Attending Unavailable TESTRAKE, MYNOR Referring Unavailable JENELLE, TILA (PT) Attending Unavailable TESTRAKE, MYNOR Referring Unavailable JENELLE, TILA (PT) Attending Unavailable TESTRAKE, MYNOR Referring Unavailable FINLEY, JOSSUE Referring Unavailable TESTRAKE, MYNOR Attending Unavailable TESTRAKE, MYNOR Referring Unavailable JENELLE, TILA (PT) Attending Unavailable TESTRAKE, MYNOR Referring Unavailable JENELLE, TILA (PT) Attending Unavailable TESTRAKE, MYNOR Referring Unavailable JENELLE, TILA (PT) Attending Unavailable TESTRAKE, MYNOR Referring Unavailable JENELLE, TILA (PT) Attending Unavailable TESTRAKE, MYNOR Referring Unavailable JENELLE, TILA (PT) Attending Unavailable TESTRAKE, MYNOR Referring Unavailable TESTRAKE, MYNOR Attending Unavailable TESTRAKE, MYNOR Referring Unavailable JENELLE, TILA (PT) Attending Unavailable TESTRAKE, MYNOR Referring Unavailable TESTRAKE, MYNOR Referring Unavailable TESTRAKE, MYNOR Attending Unavailable TESTRAKE, MYNOR Referring Unavailable KMI, GLEN (PRINTING GREY CLOTH TENDER) Referring Unavailable KIM, GLEN (PRINTING GREY CLOTH TENDER) Referring Unavailable JENELLE, TILA (PT) Attending Unavailable TESTRAKE, MYNOR Referring Unavailable Dr. Mayda Garcia Primary Care Provider [phone] Dr. Mayda Garcia Attending Provider [phone] Dr. Mayda Garcia Referring Provider Jayant GANG KNIFE FISH CHOPPER, GANG KNIFE FISH CHOPPER-C Peggy Attending Provider Dr. Mayda Garcia Primary Care Provider [phone] Dr. Mayda Garcia Referring Provider Jayant GANG KNIFE FISH CHOPPER, GANG KNIFE FISH CHOPPER-C Peggy Attending Provider Venegas GANG KNIFE FISH CHOPPER, GANG KNIFE FISH CHOPPER-C Vanita Attending Provider Dr. Mayda Garcia Attending Provider [phone] Dr. Cruzito Monroe Attending Provider MD Cayden Carrillo Referring Provider Dr. Turner Armendariz Emergency Provider Dr. Kay Fernandez Admit Provider Dr. Kay Fernandez Attending Provider Dr. Kay Fernandez Other Provider Dr. Agus Mg Attending Provider Dr. Winston Johnson Attending Provider Dr. Mayda Garcia Primary Care Provider Dr. Mayda Garcia Referring Provider [phone] Dr. Agus Mg Attending Provider Dr. Kay Fernandez Referring Provider Dr. Mayda Garcia Primary Care Provider [phone] Dr. Cruzito Monroe Attending Provider MD Cayden Carrillo Referring Provider Dr. Mayda Garcia Attending Provider [phone] Dr. Mayda Garcia Referring Provider [phone] Dr. Agus Mg Attending Provider Jim, Dr. Villanueva Referring Provider Dr. Turner Armendariz Emergency Provider [facility], Dr. Villanueva Admit Provider [facility], Dr. Villanueva Attending Provider [facility], Dr. Villanueva Other Provider Alex, Dr. Montero Attending Provider Dr. Russell Jang Attending Provider Dr. Russell Jang Referring Provider Dr. Mayda Garcia Primary Care Provider [phone] Dr. Mayda Garcia Attending Provider [phone] Dr. Mayda Garcia Referring Provider [phone] RENE Lin Attending Provider Dr. Mayda Cano Primary Care Provider Jose, Dr. Brunner Referring Provider [phone] RENE Lin Attending Provider Dr. Mayda Cano Attending Provider [phone] Dr. Mayda Garcia Primary Care Provider [phone] Dr. Mayda Garcia Attending Provider [phone] Dr. Mayda Garcia Referring Provider [phone] Dr. Pepe Ruiz Attending Provider Dr. Mayda Garcia Primary Care Provider [phone] Dr. Mayda Garcia Attending Provider [phone] Dr. Mayda Garcia Referring Provider [phone] Parker Pickett Attending Provider Dr. Winston Johnson Attending Provider RENE Tobias Attending Provider Dr. Turner Armendariz Emergency Provider Dr. Edwin Kaplan Admit Provider Dr. Edwin Kaplan Attending Provider Dr. Edwin Kaplan Other Provider [phone] Dr. Bhanu Milian Other Provider Dr. Bhanu Milian Attending Provider Dr. Mayda Garcia Primary Care Provider [phone] Dr. Mayda Garcia Referring Provider [phone] Dr. Mayda Garcia Attending Provider [phone] Mayda Garcia B Primary Care Provider ROSE, AZAM Attending Unavailable MAYDA GARCIA Primary Care Unavailable ROSE, AZAM Attending Unavailable MAYDA GARCIA Primary Care Unavailable ROSE, AZAM Referring Unavailable SULEIMANGHChandana EFMICHELLEONGCONSUELO Primary Care Unavailable ROSE, AZAM Attending Unavailable ROSE, AZAM Admitting Unavailable ROSE, AZAM Attending Unavailable MAYDA GARCIA Primary Care Unavailable ZMEILI, DUC Consulting Unavailable Dr. Mayda Garcia Primary Care Provider [phone] Dr. Mayda Garcia Referring Provider [phone] RENE Tobias Attending Provider Dr. Winston Johnson Attending Provider Dr. Mayda Garcia Attending Provider [phone] Dr. Turner Armendariz Emergency Provider Dr. Edwin Kaplan Admit Provider [phone] Dr. Edwin Kaplan Attending Provider Dr. Edwin Kaplan Other Provider Dr. Bhanu Milian Other Provider Dr. Bhanu Milian Attending Provider Dr. Pepe Ruiz Attending Provider Dr. Pepe Ruiz Referring Provider Roof GANG KNIFE FISH CHOPPER, GANG KNIFE FISH CHOPPER-C Carlos Bush Attending Provider Dr. Mayda Garcia Primary Care Provider [phone] Dr. Mayda Garcia Attending Provider [phone] Dr. Mayda Garcia Referring Provider [phone] Dr. Turner Armendariz Emergency Provider Rosaura, Dr. Pineda Admit Provider Dr. Edwin Kaplan Attending Provider Dr. Edwin Kaplan Other Provider Maicol, Dr. Drummond Other Provider Dr. Bhanu Milian Attending Provider Dr. Pepe Ruiz Attending Provider Dr. Pepe Ruiz Referring Provider Roof GANG KNIFE FISH CHOPPER, GANG KNIFE FISH CHOPPER-C Carlos Bush Attending Provider Dr. Mayda Garcia Primary Care Provider [phone] Dr. Mayda Garcia Attending Provider [phone] Dr. Mayda Garcia Referring Provider [phone] Dr. Pepe Ruiz Attending Provider Dr. Pepe Ruiz Referring Provider Roof GANG KNIFE FISH CHOPPER, GANG KNIFE FISH CHOPPER-C Carlos Bush Attending Provider Dr. Winston Johnson Attending Provider Dr. Parker Pickett Attending Provider Dr. Mayda Garcia Primary Care Provider [phone] Dr. Pepe Ruiz Attending Provider Dr. Pepe Ruiz Referring Provider Dr. Mayda Garcia Attending Provider [phone] Dr. Mayda Garcia Referring Provider [phone] Shelly GANG KNIFE FISH CHOPPER, GANG KNIFE FISH CHOPPER-C Carlos Bush Attending Provider Theo GANG KNIFE FISH CHOPPER, GANG KNIFE FISH CHOPPER-C Vanita Attending Provider Dr. Mayda Garcia Primary Care Provider [phone] Dr. Winston Johnson Attending Provider Dr. Pepe Ruiz Attending Provider Dr. Pepe Ruiz Referring Provider Dr. Mayda Garcia Referring Provider [phone] Dr. Parker Pickett Attending Provider Theo GANG KNIFE FISH CHOPPER, GANG KNIFE FISH CHOPPER-C Vanita Attending Provider Dr. Mayda Garcia Attending Provider [phone] SYDNEY Echevarria Attending Provider [phone] Dr. Vadim Mckinney Attending Provider Dr. Mayda Garcia Primary Care Provider [phone] Dr. Pepe Ruiz Attending Provider Dr. Pepe Ruiz Referring Provider NURSE, BIM Attending Provider Unavailable Dr. Mayda Garcia MD Primary Care Provider Dr. Mayda Garcia MD Referring Provider [phone] Dr. Winston Johnson MD Attending Provider Theo GILLESPIE-CVanita Attending Provider Theo GILLESPIE-CVanita Referring Provider Dr. Pepe Ruiz MD Attending Provider [phone] Dr. Pepe Ruiz MD Referring Provider [phone] Theo GANG KNIFE FISH CHOPPER-CVanita Other Provider Dr. Russell Jang DO Attending Provider Kashif ZUNIGA, Dr. Fraire Other Provider Jose ZUNIGA, Dr. Brunner Attending Provider Kashif ZUNIGA, Dr. Fraire Attending Provider Kashif ZUNIGA, Dr. Fraire Referring Provider Rocio SINGH, Dr. Gtz Referring Provider Rocio SINGH, Dr. Gtz Emergency Provider Dave ZUNIGA, Dr. Washington Emergency Provider Jose ZUNIGA, Dr. Brunner Primary Care Provider Jose ZUNIGA, Dr. Brunner Referring Provider Sara ZUNIGA, Dr. Cantu Attending Provider Sara ZUNIGA, Dr. Cantu Referring Provider Rocio SINGH, Dr. Gtz Attending Provider Dave ZUNIGA, Dr. Washington Attending Provider Shante SINGH, Dr. Nascimento Emergency Provider Jose ZUNIGA, Dr. Brunner Primary Care Provider Jose ZUNIGA, Dr. Brunner Attending Provider Jose ZUNIGA, Dr. Brunner Referring Provider Mikhail West Attending Provider Dr. Azam Frey DO Attending Provider Theo GILLESPIE-CVanita Attending Provider Jose, Efewongbe Primary Care Unavailable Pepe Ruiz Referring Unavailable Yee Rowland Consulting Unavailable Pepe Ruiz Attending Unavailable Oleghe, Efewongbe Primary Care Unavailable Azam Frey Attending Unavailable Maurilio Bradford Consulting Unavailable Maurilio Bradford Attending Unavailable Oleghe, Efewongbe Primary Care Unavailable Maurilio Bradford Admitting Unavailable Ulisses Chan Referring Unavailable Oleghe, Efewongbe Primary Care Unavailable Ulisses Chan Attending Unavailable Ulisses Chan Attending Unavailable Oleghe, Efewongbe Primary Care Unavailable Theo GANG KNIFE FISH CHOPPER, Vanita Attending Unavailable Theo GANG KNIFE FISH CHOPPER, Vanita Referring Unavailable Oleghe, Efewongbe Primary Care Unavailable Maurilio Bradford Consulting Unavailable Oleghe, Efewongbe Primary Care Unavailable Maurilio Bradford Admitting Unavailable Lenka Finley Attending Unavailable Janee Echevarria Referring Unavailable Oleghe, Efewongbe Primary Care Unavailable Janee Echevarria Attending Unavailable Lenka Finley Attending Unavailable Lenka Finley Consulting Unavailable Michael Delacruz Attending Unavailable Jonas Cross Consulting Unavailable AdeLesvia jimenez Consulting Unavailable Hindunikolay, Melissa Consulting Unavailable Deon Mandi Consulting Unavailable Aziza Pickenscia Consulting Unavailable Raj Acevedo Consulting Unavailable June Lakhani Consulting Unavailable Bryce Herring Consulting Unavailable Vishnu Rosa Consulting Unavailable Doug Fisher Consulting Unavailable Joselyn Lackey Consulting Unavailable Mynor Padilla Consulting Unavailable Laurie Elizabeth Consulting Unavailable Chaparro Paulino Consulting Unavailable Lois Restrepo Consulting UnavailRitesh Velez Consulting Unavailable Monica Rao Consulting Unavailable Mookie George Consulting Unavailable Noemi [place] Consulting Unavailable Malena Siddiqui Consulting Unavailable Oleghe, Efewongbe Primary Care Unavailable Raullanki, Yee Referring Unavailable BobkiPrasadma Attending Unavailable Theo GILLESPIE, Vanita Attending Unavailable Theo GANG KNIFE FISH CHOPPER, Vanita Referring Unavailable Oleghe, Efewongbe Primary Care Unavailable Oleghe, Efewongbe Primary Care Unavailable Oleghe, Efewongbe Attending Unavailable Oleghe, Efewongbe Referring Unavailable Oleghe, Efewongbe Primary Care Unavailable Vellanki, Yee Referring Unavailable Raullanki, Yee Attending Unavailable Mynor Apple Referring Unavailable Oleghe, Efewongbe Primary Care Unavailable Mynor Apple Attending Unavailable Aleksandr Serra Referring Unavailable Oleghe, Efewongbe Primary Care Unavailable Aleksandr Serra Attending Unavailable Theo GANG KNIFE FISH CHOPPER, Vanita Attending Unavailable Theo GANG KNIFE FISH CHOPPER, Vanita Referring Unavailable Oleghe, Efewongbe Primary Care Unavailable Oleghe, Efewongbe Primary Care Unavailable Oleghe, Efewongbe Attending Unavailable Oleghe, Efewongbe Referring Unavailable Oleghe, Efewongbe Primary Care Unavailable Pepe Ruiz Attending Unavailable Oleghe, Efewongbe Referring Unavailable Oleghe, Efewongbe Primary Care Unavailable Pepe Ruiz Attending Unavailable Oleghe, Efewongbe Referring Unavailable Mynor Apple Attending Unavailable Oleghe, Efewongbe Primary Care Unavailable Oleghe, Efewongbe Referring Unavailable Oleghe, Efewongbe Primary Care Unavailable Felix Acosta Attending Unavailable Oleghe, Efewongbe Primary Care Unavailable Pepe Ruiz Attending Unavailable Pepe Ruiz Referring Unavailable Oleghe, Efewongbe Primary Care Unavailable Winston Johnson Attending Unavailable Oleghe, Efewongbe Referring Unavailable Oleghe, Efewongbe Primary Care Unavailable Oleghe, Efewongbe Attending Unavailable Oleghe, Efewongbe Referring Unavailable Janee Echevarria Attending Unavailable Oleghe, Efewongbe Primary Care Unavailable Oleghe, Efewongbe Referring Unavailable Vanita Venegas NP Attending Unavailable Oleghe, Efewongbe Primary Care Unavailable Oleghe, Efewongbe Referring Unavailable Oleghe, Efewongbe Primary Care Unavailable Carlos Bravo NP Attending Unavailable Oleghe, Efewongbe Referring Unavailable Pepe Ruiz Attending Unavailable Pepe Ruiz Referring Unavailable Oleghe, Efewongbe Primary Care Unavailable Oleghe, Efewongbe Primary Care Unavailable Pepe Ruiz Attending Unavailable Oleghe, Efewongbe Referring Unavailable Vanita Venegas NP Attending Unavailable Oleghe, Efewongbe Primary Care Unavailable Oleghe, Efewongbe Referring Unavailable Oleghe, Efewongbe Primary Care Unavailable Oleghe, Efewongbe Referring Unavailable Oleghe, Efewongbe Attending Unavailable Oleghe, Efewongbe Primary Care Unavailable Mikhail Esposito Attending Unavailable Oleghe, Efewongbe Referring Unavailable Oleghe, Efewongbe Primary Care Unavailable Oleghe, Efewongbe Referring Unavailable Oleghe, Efewongbe Attending Unavailable Oleghe, Efewongbe Primary Care Unavailable Vadim Mckinney Attending Unavailable Oleghe, Efewongbe Referring Unavailable Maurilio Bradford Referring Unavailable Azam He Attending Unavailable Oleghe, Efewongbe Primary Care Unavailable Oleghe, Efewongbe Primary Care Unavailable Agus Mg Attending Unavailmax Venegas GANG KNIFE FISH CHOPPER, Vanita Attending Unavailable Oleghe, Efewongbe Primary Care Unavailable Oleghe, Efewongbe Referring Unavailable Theo GANG KNIFE FISH CHOPPER, Vanita Consulting Unavailable Oleghe, Efewongbe Primary Care Unavailable Russell Jang Attending Unavailable Theo GANG KNIFE FISH CHOPPER, Vanita Referring Unavailable Oleghe, Efewongbe Primary Care Unavailable Pepe Ruiz Attending Unavailable Pepe Ruiz Referring Unavailable Pepe Ruiz Attending Unavailable Oleghe, Efewongbe Primary Care Unavailable Baddour, Pepe Referring Unavailable Oleghe, Efewongbe Primary Care Unavailable Oleghe, Efewongbe Referring Unavailable Oleghe, Efewongbe Attending Unavailable Allergies Allergy Classification Reported Allergen(s) Allergy Type Date of Onset Reaction(s) Facility (3 sources) Seasonal allergy; Translations: [SEASONAL ALLERGIES] Propensity to adverse reactions (disorder) 4 AOF [facility] Repository (20 sources) predniSONE Drug Allergy 2 Nausea, Hives [facility] (8 sources) Prednisone Allergy to substance 7 Hives, Nausea And Vomiting [facility] (1 source) predniSONE Drug Allergy 5 [facility] Repository Medications Current Medications Medication Drug Class(es) Dates Sig (Normalized) Sig (Original) acetaminophen 325 mg / HYDROcodone bitartrate 5 mg oral tablet (20 sources) Opioid Agonist Start: 07-14-2024 Start: 03-29-2022 End: 08-22-2022 Start: 03-29-2022 End: 08-22-2022 take 1 tablet by mouth every six hours as needed Hydrocodone-Acetaminophen Discontinued 1 TABLET PO EVERY 6 HOURS NEEDED 02 03June 07, 2022 August 22, 2022 3:16pm Start: 03-29-2022 End: 08-22-2022 Start: 01-13-2020 End: 01-16-2020 Start: 01-13-2020 End: 01-16-2020 take 1 tablet by mouth every six hours as needed Hydrocodone-Acetaminophen Discontinued 1 TABLET PO EVERY 6 HOURS NEEDED 10 January 13, 2020 January 16, 2020 12:02am Start: 01-13-2020 End: 01-16-2020 Start: 02-27-2017 End: 07-16-2017 Start: 02-27-2017 End: 07-16-2017 take 1 tablet by mouth every four hours as needed Hydrocodone-Acetaminophen Discontinued 1 - 2 TABLET PO EVERY 4 HOURS NEEDED February 27, 2017 12:00am July 16, 2017 9:17am Start: 02-27-2017 End: 07-16-2017 aspirin 81 mg chewable tablet (20 sources) Platelet Aggregation Inhibitor, Nonsteroidal Anti-inflammatory Drug Start: 01-02-2023 End: 01-10-2024 aspirin 81 MG chewable tablet Chew 1 tablet (81 mg) daily. Do not start before January 10, 2023. 30 tablet 0 01/10/2023 01/10/2024 Active Start: 08-13-2020 End: 01-11-2023 Start: 02-26-2017 End: 05-21-2020 Blood-Glucose Meter (True Me trix Air Glucose Meter) kit (20 sources) Start: 02-03-2020 Blood-Glucose Meter (True Metrix Air Glucose Meter) kit Active 0 .ROUTE .MEDSUPPLY February 03, 2020 9:51am As directed Start: 02-03-2020 Blood-Glucose Meter (True Metrix Air Glucose Meter) kit Active 0 .ROUTE .MEDSUPPLY February 03, 2020 10:51am As directed Start: 02-03-2020 End: 02-03-2020 Blood-Glucose Meter (True Me trix Air Glucose Meter) kit Discontinued 0 .ROUTE .MEDSUPPLY February 02, 2020 11:00pm February 03, 2020 9:51am As directed Start: 02-03-2020 End: 02-03-2020 Blood-Glucose Meter (True Me trix Air Glucose Meter) kit Discontinued 0 .ROUTE .MEDSUPPLY February 03, 2020 12:00am February 03, 2020 10:51am As directed calcium citrate 950 mg oral tablet (20 sources) Start: 05-21-2020 Start: 05-21-2020 take 200 mg by mouth twice elian ly Calcium Citrate Active 200 MG PO TWICE A DAY May 21, 2020 1:00am take 1 tablet by mouth once dana y calcium citrate (Calcitrate) 950 (200 Ca) MG tablet Take 950 mg by mouth daily. 0 Active dexamethasone 0.001 mg/mg / neomycin 0.0035 mg/mg / polymyxin b 10 unt/mg ophthalmic ointment (2 sources) Aminoglycoside Antibacterial, Polymyxin-class Antibacterial, Corticosteroid Start: 09-28-2024 disability placard (20 sources) Start: 06-27-2020 disability michael card Active 0 .ROUTE .MEDSUPPLY June 27, 2020 12:00am As directed, Length of time: 5 years Start: 06-27-2020 disability michael card Active 0 .ROUTE .MEDSUPPLY June 27, 2020 1:00am As directed, Length of time: 5 years Start: 10-31-2019 End: 10-31-2019 disability placard Discontin ued October 30, 2019 11:00pm October 31, 2019 9:39am As directed, Length of time: 5 years Start: 10-31-2019 End: 10-31-2019 disability placard Discontin ued October 31, 2019 12:00am October 31, 2019 10:39am As directed, Length of time: 5 years gabapentin 300 mg oral capsu le (20 sources) Anti-epileptic Agent Start: 02-14-2024 Start: 05-20-2019 End: 03-20-2020 Start: 05-20-2019 End: 03-20-2020 take 600 mg by mouth at bedtime Gabapentin Discontinue d 600 MG PO AT BEDTIME 180 November 17, 2019 9:29am March 20, 2020 3:38pm Start: 05-20-2019 End: 03-20-2020 Start: 02-23-2013 End: 05-20-2019 ibuprofen 600 mg oral tablet (8 sources) Nonsteroidal Anti-inflammatory Drug Start: 07-14-2024 methotrexate 2.5 mg oral tablet (8 sources) Folate Analog Metabolic Inhibitor Start: 10-26-2023 Multiple Vitamin (multivitamin) capsule (8 sources) take 1 capsule by mouth once daily Multiple Vitamin (multivitamin) capsule Take 1 capsule by mouth daily. 0 Suspended take 1 capsule by mouth once elian ly Multiple Vitamin (multivitamin) capsule Take 1 capsule by mouth daily. 0 Active Multivitamin preparation (20 sources) Start: 05-20-2019 take 1 tablet by mouth once daily Multivitamin Active 1 TABLET PO DAILY May 20, 2019 12:00am Start: 05-20-2019 take 1 tablet by unique once daily Multivitamin Active 1 TABLET PO DAILY May 20, 2019 1:00am oxyCODONE hydrochloride 5 mg oral tablet (20 sources) Opioid Agonist Start: 11-18-2023 Start: 01-01-2023 End: 01-22-2023 (20 sources) Start: 09-28-2024 Start: 01-07-2024 Start: 06-17-2023 Start: 06-17-2023 Start: 04-02-2022 End: 06-17-2023 Start: 04-02-2022 Start: 07-17-2021 End: 06-17-2023 Start: 07-17-2021 Start: 06-27-2020 Start: 02-07-2020 End: 07-17-2021 Start: 02-07-2020 End: 02-07-2020 Start: 02-03-2020 Start: 02-03-2020 End: 02-03-2020 Start: 11-11-2019 End: 11-11-2019 Start: 10-31-2019 End: 10-31-2019 Start: 05-20-2019 Completed/Discontinued Medications Medication Drug Class(es) Dates Sig (Normalized) Sig (Original) acetaminophen 500 mg oral tablet (20 sources) Start: 01-11-2023 End: 02-04-2023 Start: 01-09-2023 End: 01-19-2023 take 2 tablets by mouth every eight hours acetaminophen (Tylenol) 500 MG tablet Take 2 tablets (1,000 mg) by mouth in the morning and 2 tablets (1,000 mg) at noon and 2 tablets (1,000 mg) before bedtime. Do all this for 10 days. 30 tablet 0 01/09/2023 01/19/2023 Active Start: 01-01-2023 End: 01-11-2023 take 1 tablet by mouth every eight hours 1,000 mg, Oral, Every 8 hours, First dose on Maria Alejandra 01/01/23 at 1130, Recovery [facility] On Unit 20 ml albumin human, shelter 250 mg/ml injection (2 sources) Human Serum Albumin Start: 01-01-2023 End: 01-01-2023 albumin human 25 % IV solution 25 g Start: 01-01-2023 End: 01-01-2023 25 g, IntraVENous, As needed , fluid bolus challenge PRN: PAD below goal (18) and/or Low BP (less than 90 SBP and/or less than 60 MAP) and/or Low urine output (less than 30ml/hr) per hemodynamic goals, Starting on Maria Alejandra 01/01/23 at 1117, For 2 doses, Phase II/On Unit To be given in conjunction with PRN 250ml Lactate Ringer Bolus Use if hgb greater than 7.5 and PAD below goal (18) and/or Low BP (less than 90 SBP and/or less than 60 MAP) and/or Low urine output (less than 30ml/hr) per hemodynamic goals If hemodynamic goals unattained, proceed to second fluid bolus challenge If hgb less than 7.5 notify surgeon for orders. albuterol 0.833 mg/ml / ipratropium bromide 0.167 mg/ml inhalation solution (20 sources) Anticholinergic, beta2-Adrenergic Agonist Start: 01-11-2023 End: 01-22-2023 Start: 01-11-2023 End: 01-22-2023 Start: 01-01-2023 End: 01-09-2024 take 1 mL by inhalation three times daily Ipratropium-Albuterol Discontinued 3 ML INHALATION THREE TIMES A DAY January 11, 2023 12:00am January 22, 2023 7:23pm ALPRAZolam 0.25 mg disintegrating oral tablet (1 source) Benzodiazepine Start: 01-01-2023 End: 01-01-2023 ALPRAZolam (Xanax) disintegrating tablet 0.25 mg amoxicillin 875 mg / clavulanate 125 mg oral tablet (20 sources) Penicillin-class Antibacterial Start: 05-16-2022 End: 06-09-2022 Start: 05-16-2022 End: 06-09-2022 take 1 tablet by mouth twice daily Amoxicillin-Pot Clavulanate Discontinued 1 TABLET PO TWICE A DAY May 16, 2022 1:00am June 09, 2022 2:28pm Start: 05-16-2022 End: 06-09-2022 Start: 07-03-2017 End: 07-16-2017 Start: 07-03-2017 End: 07-16-2017 take 1 tablet by mouth twice daily Amoxicillin-Pot Clavulanate (Augmentin) 875-125 mg tablet Discontinued 1 TABLET PO TWICE A DAY July 03, 2017 1:00am July 16, 2017 9:15am Start: 07-03-2017 End: 07-16-2017 atorvastatin 80 mg oral tabl et (20 sources) HMG-CoA Reductase Inhibitor Start: 03-23-2018 End: 09-23-2024 Start: 08-24-2016 End: 03-23-2018 Start: 08-24-2016 End: 03-23-2018 take 40 mg by mouth at bedtime Atorvastatin Discontinu ed 40 MG PO AT BEDTIME August 24, 2016 12:00am March 23, 2018 9:09am Start: 08-24-2016 End: 03-23-2018 baclofen 10 mg oral tablet (20 sources) gamma-Aminobutyric Acid-ergic Agonist Start: 01-10-2022 End: 04-02-2022 Start: 03-22-2021 End: 07-16-2021 benzocaine 15 mg / menthol 2 .6 mg oral lozenge (20 sources) Standardized Chemical Allergen Start: 06-03-2021 End: 10-17-2021 Start: 06-03-2021 End: 10-17-2021 Benzocaine-Menthol Discontin ued 1 LOZENGE MUCOUS MEM Q2H June 03, 2021 1:00am October 17, 2021 10:03am Start: 06-03-2021 End: 10-17-2021 Start: 11-22-2019 End: 05-21-2020 Start: 11-22-2019 End: 05-21-2020 Benzocaine-Menthol Discontin ued 1 LOZENGE MM EVERY 2 HOURS NEEDED November 22, 2019 10:23am May 21, 2020 9:30am benzonatate 200 mg oral caps ule (20 sources) Non-narcotic Antitussive Start: 05-16-2022 End: 06-09-2022 Start: 12-23-2021 End: 04-02-2022 Start: 06-03-2021 End: 11-06-2021 Start: 06-23-2017 End: 07-16-2017 Start: 06-23-2017 End: 07-16-2017 take 1 capsule by mouth three times daily Benzonatate (Tessalon Perles) 100 mg capsule Discontinued 100 MG PO THREE TIMES A DAY June 23, 2017 1:00am July 16, 2017 9:15am bisacodyl 5 mg delayed release oral tablet (20 sources) Stimulant Laxative Start: 01-17-2021 End: 01-19-2021 calcium chloride 0.0014 meq/ml / potassium chloride 0.004 meq/ml / sodium chloride 0.103 meq/ml / sodium lactate 0.028 meq/ml injectable solution (2 sources) Start: 01-01-2023 End: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 of the circulatory system] 12-18-2022 Episodic Other circulatory disease (6 sources) Personal history of other diseases of the circulatory system; Translations: [Personal history of other diseases of circulatory system] 12-18-2022 Episodic Other connective tissue disease (20 sources) Muscle pain; Translations: [Myalgia, unspecified site] Onset: 01-01-2023 11-02-2021 Episodic Other connective tissue disease (20 sources) Olecranon bursitis; Translations: [Olecranon bursitis, unspecified elbow] Onset: 01-01-2023 12-06-2021 Episodic Other connective tissue disease (20 sources) Calcific tendinitis; Translations: [Calcific tendinitis, unspecified site] Onset: 01-01-2023 12-06-2021 Episodic Other connective tissue disease (20 sources) Pain in right arm; Translations: [Pain in right arm] 12-06-2021 Episodic Other connective tissue disease (20 sources) Pain of left upper arm; Translations: [Pain in left upper arm] Onset: 01-01-2023 01-14-2022 Episodic Other connective tissue disease (2 sources) Pain in left upper arm; Translations: [Pain in limb] 06-30-2022 Episodic Other connective tissue disease (8 sources) Tendinitis of right rotator cuff; Translations: [Other shoulder lesions, right shoulder] 12-02-2023 Episodic Other connective tissue disease (8 sources) Tendinitis; Translations: [Enthesopathy, unspecified] 11-18-2023 Episodic Other connective tissue disease (1 source) Peroneal tendinitis, left leg; Translations: [Peroneal tendinitis, left leg] Onset: 07-22-2024 Episodic Other fractures (20 sources) Compression fracture of lumbar spine; Translations: [Collapsed vertebra, not elsewhere classified, lumbar region, initial encounter for fracture] Onset: 01-01-2023 01-13-2022 Episodic Other injuries and conditions due to external causes (1 source) Exhaustion due to excessive exertion, initial encounter; Translations: [Exhaustion due to excessive exertion, initial encounter] Onset: 10-03-2024 Episodic Other lower respiratory disease (20 sources) Cough; Translations: [Cough] Onset: 01-01-2023 Episodic Other lower respiratory disease (20 sources) Dyspnea on exertion; Translations: [Other forms of dyspnea] 02-18-2023 Episodic Other lower respiratory disease (8 sources) Hypoxia; Translations: [Hypoxemia] 12-07-2023 Episodic Other nervous system disorders (8 sources) Neuropathy; Translations: [Polyneuropathy, unspecified] 02-22-2024 Chronic Other nervous system disorders (20 sources) Numbness of upper limb; Translations: [Anesthesia of skin] Onset: 01-01-2023 01-14-2022 Episodic Other nervous system disorders (4 sources) Anesthesia of skin; Translations: [Disturbance of skin sensation] Episodic Other nervous system disorders (8 sources) Tremor; Translations: [Tremor, unspecified] 09-16-2023 Episodic Other non-traumatic joint disorders (20 sources) Pain in right shoulder; Translations: [Pain in joint, shoulder region] Episodic Other non-traumatic joint disorders (20 sources) Pain in left shoulder; Translations: [Pain in joint, shoulder region] Episodic Other non-traumatic joint disorders (20 sources) Hip pain; Translations: [Pain in right hip] 10-03-2022 Episodic Other non-traumatic joint disorders (6 sources) Pain in right hip; Translations: [Pain in joint, pelvic region and thigh] 10-03-2022 Episodic Other non-traumatic joint disorders (20 sources) Pain in right knee; Translations: [Right knee pain] 10-10-2022 Episodic Other non-traumatic joint disorders (20 sources) Ankle pain; Translations: [Pain in left ankle and joints of left foot] 12-11-2022 Episodic Other non-traumatic joint disorders (1 source) Pain in right ankle and joints of right foot; Translations: [Pain in right ankle and joints of right foot] Onset: 09-21-2024 Episodic Other nutritional; endocrine; and metabolic disorders (20 sources) Body mass index 30+ - obesity; Translations: [Body mass index (BMI) 32.0-32.9, adult] 11-05-2021 Chronic Other nutritional; endocrine; and metabolic disorders (6 sources) Body mass index (BMI) 32.0-32.9, adult; Translations: [Body Mass Index 32.0-32.9, adult] Chronic Other nutritional; endocrine; and metabolic disorders (20 sources) Obesity; Translations: [Obesity, unspecified] Onset: 03-19-2022 03-10-2022 Chronic Other nutritional; endocrine; and metabolic disorders (14 sources) Obesity, unspecified; Translations: [Obesity, unspecified] Chronic Other skin disorders (9 sources) Keloid scar; Translations: [Hypertrophic scar] Episodic Other upper respiratory disease (2 sources) Chronic rhinitis; Translations: [Chronic rhinitis] Onset: 08-02-2009 01-01-2023 Chronic Other upper respiratory infections (20 sources) Acute upper respiratory infection; Translations: [Acute upper respiratory infection, unspecified] 11-02-2021 Episodic Pneumonia (except that caused by tuberculosis or sexually transmitted disease) (20 sources) Pneumonia; Translations: [Pneumonia, unspecified organism] Onset: 06-17-2022 06-06-2022 Episodic Residual codes; unclassified (20 sources) Obstructive sleep apnea syndrome; Translations: [Obstructive sleep apnea (adult) (pediatric)] Onset: 03-16-2012 07-23-2020 Chronic Residual codes; unclassified (20 sources) Obstructive sleep apnea (adult) (pediatric); Translations: [Obstructive sleep apnea (adult)(pediatric)] Onset: 09-28-2024 Chronic Residual codes; unclassified (20 sources) Pain; Translations: [Pain, unspecified] Onset: 01-01-2023 01-02-2022 Episodic Residual codes; unclassified (5 sources) Pain, unspecified; Translations: [Generalized pain] Episodic Residual codes; unclassified (20 sources) Amnesia; Translations: [Other amnesia] Onset: 01-01-2023 10-03-2022 Episodic Residual codes; unclassified (20 sources) Memory impairment; Translations: [Other amnesia] 08-22-2022 Episodic Residual codes; unclassified (10 sources) Other amnesia; Translations: [Memory loss] 08-22-2022 Episodic Residual codes; unclassified (20 sources) Edema of lower extremity; Translations: [Localized edema] 02-04-2023 Episodic Residual codes; unclassified (4 sources) Localized edema; Translations: [Edema] 02-04-2023 Episodic Residual codes; unclassified (13 sources) Peripheral edema; Translations: [Localized edema] 09-16-2024 Episodic Residual codes; unclassified (1 source) Pain, unspecified; Translations: [Pain, unspecified] Onset: 02-22-2018 Rheumatoid arthritis and related disease (20 sources) Rheumatoid arthritis; Translations: [Rheumatoid arthritis, unspecified] Onset: 06-06-2024 01-11-2023 Chronic Spondylosis; intervertebral disc disorders; other back problems (4 sources) Disorder of joint of spine; Translations: [Other spondylosis with radiculopathy, lumbar region] Onset: 05-19-2016 01-01-2023 Chronic Spondylosis; intervertebral disc disorders; other back problems (20 sources) Backache; Translations: [Dorsalgia, unspecified] Onset: 02-24-2022 Episodic Sprains and strains (20 sources) Strain of back muscle; Translations: [Strain of muscle, fascia and tendon of lower back, initial encounter] Onset: 11-19-2022 04-06-2022 Episodic Superficial injury; contusion (20 sources) Contusion of sacral region; Translations: [Contusion of lower back and pelvis, initial encounter] Onset: 01-01-2023 04-06-2022 Episodic Thyroid disorders (2 sources) Thyroid nodule; Translations: [Nontoxic single thyroid nodule] Onset: 02-20-2012 01-01-2023 Chronic Unclassified (1 source) Unknown / UNK(Unknown) Onset: 10-08-2015 Unclassified (1 source) Left knee painful Onset: 10-14-2017 Unclassified (20 sources) Body mass index 30+ - obesity; Translations: [Body mass index (BMI) greater than 35] 08-02-2020 Unclassified (2 sources) New Patient; Translations: [New Patient] Onset: 12-23-2022 Unclassified (3 sources) Left ankle pain Viral infection (20 sources) Acute viral disease; Translations: [Viral infection, unspecified] 12-25-2021 Episodic Past or Other Problems Problem Classification Problem Date Documented Da te Episodic/Chronic Genitourinary symptoms and ill-defined conditions (20 sources) Increased frequency of urination; Translations: [Frequency of micturition] Onset: 01-01-2023 03-22-2021 Episodic Miscellaneous mental health disorders (9 sources) Feeling unhappy; Translations: [Other symptoms and signs involving emotional state] Onset: 12-02-2023 12-02-2023 Episodic Other bone disease and musculoskeletal deformities [...] right leg] Onset: 12-21-2012 01-01-2023 Episodic Other connective tissue disease (1 source) Fibromyalgia; Translations: [Fibromyalgia] Onset: 07-05-2024 Episodic Other connective tissue disease (2 sources) Enthesopathy, unspecified; Translations: [Enthesopathy, unspecified] Onset: 12-02-2023 Episodic Other connective tissue disease (1 source) Other shoulder lesions, right shoulder; Translations: [Other shoulder lesions, right shoulder] Onset: 12-02-2023 Episodic Other lower respiratory disease (11 sources) Other forms of dyspnea; Translations: [Other respiratory abnormalities] Onset: 12-03-2023 02-18-2023 Episodic Other lower respiratory disease (2 sources) Hypoxemia; Translations: [Hypoxemia] Onset: 06-03-2024 Episodic Other non-traumatic joint disorders (20 sources) Shoulder pain; Translations: [Pain in right shoulder] Onset: 01-10-2022 01-10-2022 Episodic Other non-traumatic joint disorders (7 sources) Pain in left ankle and joints of left foot; Translations: [Pain in joint, ankle and foot] Onset: 05-20-2024 12-11-2022 Episodic Other non-traumatic joint disorders (2 sources) Pain in unspecified shoulder; Translations: [Pain in unspecified shoulder] Onset: 12-03-2023 Episodic Other screening for suspected conditions (not mental disorders or infectious disease) (20 sources) Encounter for screening mammogram for malignant neoplasm of breast; Translations: [Patient encounter status] Onset: 07-20-2017 01-13-2022 Episodic Results Test Name Value Interpretation Reference Range Facility Office Visit Reporton 2024 Office Visit Report Normal [facility] Pulmonary Visit Reporton Pulmonary Visit Report Normal Wo [facility] RUBI w/ Reflex Mult Confirmon 09-27-2024 ANTI-DNA (DS)AB TNP Normal [facility] Comment on above: Performed By: #### L 101.9900, L505.7010, L500.2500, L100.0100, L3100.5450, L501.6710 ####[facility] [address] [place], [place], [id number] ANTI-SS-A TNP Normal [facility] Comment on above: Performed By: #### L 101.9900, L505.7010, L500.2500, L100.0100, L3100.5450, L501.6710 ####[facility] [address] [place], [place], [address] ANTI-SS-B TNP Normal [facility] Comment on above: Performed By: #### L 101.9900, L505.7010, L500.2500, L100.0100, L3100.5450, L501.6710 ####[facility] [address] [place], [place], [id number] Absolute lymphocyte countOrd ered By: Mayda Garcia on 09-22-2024 Lymphocytes Auto (Unsp spec) [#/Vol] 1.43 10*3/uL 0.83-4.51 [facility] Anion gap in Serum or Plasma Ordered By: Mayda Garcia on 09-22-2024 Anion gap [Moles/Vol] 11 mmol/L 5-15 [facility] Automated lymphocyte count a s percentage of total leukocytesOrdered By: Mayda Garcia on 09-22-2024 Lymphocytes/100 WBC Auto (Unsp spec) 33.1 % - [facility] BUN/creatinine ratioOrdered By: Mayda Garcia on 09-22-2024 Urea nitrogen/Creatinine [Mass ratio] 26.3 mg/mg High 02-20 [facility] Basic Metabolic Profile (BMP )on 09-22-2024 BUN/CRE 26.3 RATIO High 02-20 [facility] Comment on above: Performed By: #### L 101.9900, L505.7010, L500.2500, L100.0100, L3100.5450, L501.6710 ####[facility] [address] [place], [address] Calcium [Mass/Vol] 8.4 mg/dL Normal 7.6-11.0 [facility] Comment on above: Performed By: #### L 101.9900, L505.7010, L500.2500, L100.0100, L3100.5450, L501.6710 ####[facility] [address] [place], [address] Chloride [Moles/Vol] 108 mmol/L Normal 98-108 [facility] Comment on above: Performed By: #### L 101.9900, L505.7010, L500.2500, L100.0100, L3100.5450, L501.6710 ####[facility] [address] [place], [address] CO2 [Moles/Vol] 21.6 mmol/L Normal 21.0-32.0 [facility] Comment on above: Performed By: #### L 101.9900, L505.7010, L500.2500, L100.0100, L3100.5450, L501.6710 ####[facility] [address] [place], [address] Creatinine [Mass/Vol] 0.86 mg/dL Normal 0.70-1.20 [facility] Comment on above: Performed By: #### L 101.9900, L505.7010, L500.2500, L100.0100, L3100.5450, L501.6710 ####[facility] [address] [place], [address] GAP 11 Normal 5-15 [facility] Comment on above: Performed By: #### L 101.9900, L505.7010, L500.2500, L100.0100, L3100.5450, L501.6710 ####[facility] [address] [place], [address] GFR/1.73 sq M.predicted among non-blacks MDRD (S/P/Bld) [Vol rate/Area] 72 mL/min/{1.73_m2} Normal >60 [facility] Comment on above: Result Comment: mL/m in/1.73m2 CKD-EPI Creatinine Equation (2020) Performed By: #### L 101.9900, L505.7010, L500.2500, L100.0100, L3100.5450, L501.6710 ####[facility] [address] [place], [address] Glucose [Mass/Vol] 105 mg/dL High - [facility] Comment on above: Performed By: #### L 101.9900, L505.7010, L500.2500, L100.0100, L3100.5450, L501.6710 ####[facility] [address] [place], [address] Potassium [Moles/Vol] 4.1 mmol/L Normal 3.3-5.1 [facility] Comment on above: Performed By: #### L 101.9900, L505.7010, L500.2500, L100.0100, L3100.5450, L501.6710 ####[facility] [address] [place], [address] Sodium [Moles/Vol] 140 mmol/L Normal 133-145 [facility] Comment on above: Performed By: #### L 101.9900, L505.7010, L500.2500, L100.0100, L3100.5450, L501.6710 ####[facility] [address] [place], [address] Urea nitrogen [Mass/Vol] 23 mg/dL High 4-19 [facility] Comment on above: Performed By: #### L 101.9900, L505.7010, L500.2500, L100.0100, L3100.5450, L501.6710 ####[facility] [address] [place], [address] Basophil percentageOrdered B y: Mayda Garcia on 09-22-2024 Basophils/100 WBC (Bld) 0.7 % 0-1 [facility] Bilirubin directOrdered By: Mikhail Esposito on 09-22-2024 Bilirubin.direct [Mass/Vol] 0.15 mg/dL 0.00-0.30 [facility] Bilirubin, totalOrdered By: Mikhail Esposito on 09-22-2024 Bilirubin [Mass/Vol] 0.33 mg/dL 0.00-1.30 [facility] CBC W/Diff, Automatedon 09-02 Absolute Lymph 1.43 X10 3/uL Normal 0.83-4.51 [facility] Comment on above: Performed By: #### L 101.9900, L505.7010, L500.2500, L100.0100, L3100.5450, L501.6710 ####[facility] [address] [place], [address] Absolute Neut 2.4 X10 3/uL Normal 2.0-7.7 [facility] Comment on above: Performed By: #### L 101.9900, L505.7010, L500.2500, L100.0100, L3100.5450, L501.6710 ####[facility] [address] [place], [address] Basophils/100 WBC (Bld) 0.7 % Normal 0-1 [facility] Comment on above: Performed By: #### L 101.9900, L505.7010, L500.2500, L100.0100, L3100.5450, L501.6710 ####[facility] [address] [place], [address] Eosinophils/100 WBC (Bld) 2.3 % Normal 0-5 [facility] Comment on above: Performed By: #### L 101.9900, L505.7010, L500.2500, L100.0100, L3100.5450, L501.6710 ####[facility] [address] [place], [address] Erythrocyte distribution width (RBC) [Ratio] 13.9 % Normal 11.6-14.6 [facility] Comment on above: Performed By: #### L 101.9900, L505.7010, L500.2500, L100.0100, L3100.5450, L501.6710 ####[facility] [address] [place], [address] Hematocrit (Bld) [Volume fraction] 33.7 % Low 37-47 [facility] Comment on above: Performed By: #### L 101.9900, L505.7010, L500.2500, L100.0100, L3100.5450, L501.6710 ####[facility] [address] [place], [address] Hemoglobin (Bld) [Mass/Vol] 11.2 g/dL Low 12.0-15.0 [facility] Comment on above: Performed By: #### L 101.9900, L505.7010, L500.2500, L100.0100, L3100.5450, L501.6710 ####[facility] [address] [place], [address] IG% 0.500 Normal 0.0-0.9 [facility] Comment on above: Result Comment: IG% - Immature Granulocytes (promyelocytes, myelocytes andmetamyelocytes) > 1% indicates that a LEFT SHIFT is Present. Performed By: #### L 101.9900, L505.7010, L500.2500, L100.0100, L3100.5450, L501.6710 ####[facility] [address] [place], [address] Lymphocytes/100 WBC (Bld) 33.1 % Normal 19-41 [facility] Comment on above: Performed By: #### L 101.9900, L505.7010, L500.2500, L100.0100, L3100.5450, L501.6710 ####[facility] [address] [place], [address] MCH (RBC) [Entitic mass] 32.5 pg High 27.0-32.0 [facility] Comment on above: Performed By: #### L 101.9900, L505.7010, L500.2500, L100.0100, L3100.5450, L501.6710 ####[facility] [address] [place], [address] MCHC (RBC) [Mass/Vol] 33.2 g/dL Normal 32-36 [facility] Comment on above: Performed By: #### L 101.9900, L505.7010, L500.2500, L100.0100, L3100.5450, L501.6710 ####[facility] [address] [place], [address] MCV (RBC) [Entitic vol] 97.7 fL Normal 81-99 [facility] Comment on above: Performed By: #### L 101.9900, L505.7010, L500.2500, L100.0100, L3100.5450, L501.6710 ####[facility] [address] [place], [address] Monocytes/100 WBC (Bld) 8.1 % Normal 0-10 [facility] Comment on above: Performed By: #### L 101.9900, L505.7010, L500.2500, L100.0100, L3100.5450, L501.6710 ####[facility] [address] [place], [address] Neutrophils/100 WBC (Bld) 55.3 % Normal 47-70 [facility] Comment on above: Performed By: #### L 101.9900, L505.7010, L500.2500, L100.0100, L3100.5450, L501.6710 ####[facility] [address] [place], [address] Nucleated RBC (Bld) [#/Vol] 0 10*3/uL Normal 0-5 [facility] Comment on above: Performed By: #### L 101.9900, L505.7010, L500.2500, L100.0100, L3100.5450, L501.6710 ####[facility] [address] [place], [address] Platelet mean volume (Bld) [Entitic vol] 12.2 fL High 6.2-12.0 [facility] Comment on above: Performed By: #### L 101.9900, L505.7010, L500.2500, L100.0100, L3100.5450, L501.6710 ####[facility] [address] [place], [address] Platelets (Bld) [#/Vol] 155 10*3/uL Normal 150-450 [facility] Comment on above: Performed By: #### L 101.9900, L505.7010, L500.2500, L100.0100, L3100.5450, L501.6710 ####[facility] [address] [place], [address] RBC (Bld) [#/Vol] 3.45 10*6/uL Low 4.2-5.[address] [facility] Comment on above: Performed By: #### L 101.9900, L505.7010, L500.2500, L100.0100, L3100.5450, L501.6710 ####[facility] [address] [place], [address] RDW SD 49.9 fl High 35.1-43.9 [facility] Comment on above: Performed By: #### L 101.9900, L505.7010, L500.2500, L100.0100, L3100.5450, L501.6710 ####[facility] [address] [place], [place], [id number] WBC (Bld) [#/Vol] 4.3 10*3/uL Low 4.4-11.0 [facility] Comment on above: Performed By: #### L 101.9900, L505.7010, L500.2500, L100.0100, L3100.5450, L501.6710 ####[facility] [address] [place], [place], [id number] CRPon 09-22-2024 C-REACTIVE PROT 3.46 mg/L High 0.0-3.0 [facility] Comment on above: Performed By: #### L 101.9900, L505.7010, L500.2500, L100.0100, L3100.5450, L501.6710 ####[facility] [address] [place], [place], [id number] Calculated very low density lipoprotein (VLDL) cholesterol measurementOrdered By: Mikhail Esposito on 09-22-2024 Calculated very low density lipoprotein (VLDL) cholesterol measurement 14 mg/dL 5-40 [facility] Carbon dioxide, total [Moles /volume] in Central venous bloodOrdered By: Mayda Garcia on 09-22-2024 CO2 [Moles/Vol] 21.6 mmol/L 21.0-32.0 [facility] Chloride assayOrdered By: Jia Garcia on 09-22-2024 Chloride [Moles/Vol] 108 mmol/L 98-108 [facility] Eosinophil percentageOrdered By: Mayda Garcia on 09-22-2024 Eosinophils/100 WBC (Bld) 2.3 % 0-5 [facility] Erythrocyte Sed Rateon 09-22 SED RATE 5 mm/hr Normal 0-30 [facility] Comment on above: Performed By: #### L 101.9900, L505.7010, L500.2500, L100.0100, L3100.5450, L501.6710 ####[facility] [address] [place], [address] Erythrocyte distribution wid th ratioOrdered By: Mayda Garcia on 09-22-2024 Erythrocyte distribution width (RBC) [Ratio] 13.9 % 11.6-14.6 [facility] Erythrocyte distribution wid th standard deviationOrdered By: Mayda Garcia on 09-22-2024 Erythrocyte distribution width (RBC) [Ratio] 49.9 fl High 35.1-43.9 [facility] Erythrocyte sedimentation ra teOrdered By: Mayda Garcia on 09-22-2024 ESR (Bld) [Velocity] 5 mm/h 0-30 [facility] Glomerular filtration rate ( GFR) estimation/1.73 sq m using serum, plasma, or whole bOrdered By: Mayda Garcia on 09-22-2024 GFR/1.73 sq M.predicted among non-blacks MDRD (S/P/Bld) [Vol rate/Area] 72 mL/min/{1.73_m2} >60 [facility] Hematocrit Auto (Bld) [Volum e fraction]Ordered By: Mayda Garcia on 09-22-2024 Hematocrit (Bld) [Volume fraction] 33.7 % Low 37-47 [facility] Hemoglobin measurementOrdere d By: Mayda Garcia on 09-22-2024 Hemoglobin (Bld) [Mass/Vol] 11.2 g/dL Low 12.0-15.0 [facility] Immature granulocytes/100 WB C Auto (Bld)Ordered By: Mayda Garcia on 09-22-2024 Immature granulocytes/100 WBC (Bld) 0.500 % 0.0-0.9 [facility] LDL calc ser/plasOrdered By: Mikhail Esposito on 09-22-2024 Cholesterol in LDL [Mass/Vol] 135 mg/dL [facility] Lipid Profileon 09-22-2024 CHOL:HDL 3.58 Normal [facility] Comment on above: Performed By: #### L 500.4100, L500.3400 ####[facility] [address] [place], [address] Cholesterol [Mass/Vol] 206 mg/dL High <=200 [facility] Comment on above: Result Comment: Chol esterol level, Desirable <200 mg/dLBorderline high cholesterol 200-239 mg/dLHigh cholesterol >=240 mg/dLRecommendations of the NCEP Adult Treatment Panel for thefollowing risk-cutoff thresholds for the [place] Americanpulation. Performed By: #### L 500.4100, L500.3400 ####[facility] [address], [address] Cholesterol in HDL [Mass/Vol] 58 mg/dL Normal [facility] Comment on above: Result Comment: [facility] onal Cholesterol Education Program (NCEP) guidelines:<40 mg/dL: Low HDL-cholesterol (major risk factor for CHD)>= 60 mg/dL: High HDL-cholesterol (negative risk factor forCHD)HDL-cholesterol is affected by a number of factors, e.g.smoking, exercise, hormones, sex and age. Performed By: #### L 500.4100, L500.3400 ####[facility] [address] [place], [address] Cholesterol in LDL [Mass/Vol] 135 mg/dL Normal [facility] Comment on above: Result Comment: Bord vwvbvv=500-813 mg/dL Higher Zwne=566 mg/dL or greater Performed By: #### L 500.4100, L500.3400 ####[facility] [address] [place], [address] Cholesterol in VLDL [Mass/Vol] 14 mg/dL Normal 5-40 [facility] Comment on above: Performed By: #### L 500.4100, L500.3400 ####[facility] [address] [place], [address] Triglyceride [Mass/Vol] 69 mg/dL Normal [facility] Comment on above: Result Comment: The drugs N-Acetylcysteine and Metamizole may falselydepress this assay.Normal range: <150 mg/dLBorderline High: 150-199 mg/dLHigh: 200-499 mg/dLVery High: >500 mg/dL Performed By: #### L 500.4100, L500.3400 ####[facility] [address] [place], [address] Liver Profileon 09-22-2024 Albumin [Mass/Vol] 3.8 g/dL Normal 3.4-4.8 [facility] Comment on above: Performed By: #### L 500.4100, L500.3400 ####[facility] [address] [place], [address] ALK PHOS 71 U/L Normal 35-104 [facility] Comment on above: Performed By: #### L 500.4100, L500.3400 ####[facility] [address] [place], [address] ALT [Catalytic activity/Vol] 19 U/L Normal <=34 [facility] Comment on above: Performed By: #### L 500.4100, L500.3400 ####[facility] [address] [place], [address] AST [Catalytic activity/Vol] 21 U/L Normal <=31 [facility] Comment on above: Performed By: #### L 500.4100, L500.3400 ####[facility] [address] [place], [address] Bilirubin [Mass/Vol] 0.33 mg/dL Normal 0.00-1.30 [facility] Comment on above: Performed By: #### L 500.4100, L500.3400 ####[facility] [address] [place], [address] Bilirubin.direct [Mass/Vol] 0.15 mg/dL Normal 0.00-0.30 [facility] Comment on above: Performed By: #### L 500.4100, L500.3400 ####[facility] [address] [place], [address] Globulin (S) [Mass/Vol] 2.7 g/dL Normal 2.2-4.2 [facility] Comment on above: Performed By: #### L 500.4100, L500.3400 ####[facility] [address] [place], [address] T PROT 6.5 g/dL Normal 5.9-8.4 [facility] Comment on above: Performed By: #### L 500.4100, L500.3400 ####[facility] [address] [place], [address] MCV (mean corpuscular volume ) determinationOrdered By: Mayda Garcia on 09-22-2024 MCV (RBC) [Entitic vol] 97.7 fL 81-99 [facility] Mean corpuscular hemoglobin (MCH) determinationOrdered By: Mayda Garcia on 09-22-2024 MCH (RBC) [Entitic mass] 32.5 pg High 27.0-32.0 [facility] Monocyte percentageOrdered B y: Mayda Garcia on 09-22-2024 Monocytes/100 WBC (Bld) 8.1 % 0-10 [facility] Neutrophil percentageOrdered By: michellelulingconsuelo Garcia on 09-22-2024 Neutrophils/100 WBC (Bld) 55.3 % 47-70 [facility] No Panel InformationOrdered By: Mikhail Esposito on 09-22-2024 21 U/L <32 [facility] Platelet countOrdered By: Jia Garcia on 09-22-2024 Platelets (Bld) [#/Vol] 155 10*3/uL 150-450 [facility] Potassium measurement (mass/ volume)Ordered By: Mayda Garcia on 09-22-2024 Potassium (Unsp spec) [Mass/Vol] 4.1 mmol/L 3.3-5.1 [facility] RBC Auto (Bld) [#/Vol]Ordere d By: Mayda Garcia on 09-22-2024 RBC (Bld) [#/Vol] 3.45 10*6/uL Low 4.2-5.[address] [facility] Rheumatoid Factoron 09-23-19 25 RHEUMATOID FAC < 10.0 Normal <15 [facility] Comment on above: Performed By: #### L 101.9900, L505.7010, L500.2500, L100.0100, L3100.5450, L501.6710 ####[facility] [address] [place], [address] Serum DNA double strand anti body assay (units/volume)Ordered By: Mayda Garcia on 09-22-2024 DNA double strand Ab [facility]n (S) [facility] Scl-70 antibody assay (units/volume)Ordered By: Mayda Garcia on 09-22-2024 SCL-70 extractable nuclear Ab Qn (S) [facility] Serum creatinine measurement (mass/volume)Ordered By: Mayda Garcia on 09-22-2024 Creatinine [Mass/Vol] 0.86 mg/dL 0.70-1.20 [facility] Serum globulin measurementOr dered By: Mikhail Esposito on 09-22-2024 Globulin (S) [Mass/Vol] 2.7 g/dL 2.2-4.2 [facility] Serum glucose measurement (m ass/volume)Ordered By: Mayda Garcia on 09-22-2024 Glucose [Mass/Vol] 105 mg/dL High 70-99 [facility] Serum or plasma C reactive p rotein measurement (mass/volume)Ordered By: Mayda Garcia on 09-22-2024 CRP [Mass/Vol] 3.46 mg/L High 0.0-3.0 [facility] Serum or plasma alanine carvalho otransferase (ALT) measurementOrdered By: Mikhail Esposito on 09-22-2024 ALT [Catalytic activity/Vol] 19 U/L <35 [facility] Serum or plasma albumin loretta urement (mass/volume)Ordered By: Mikhail Esposito on 09-22-2024 Albumin [Mass/Vol] 3.8 g/dL 3.4-4.8 [facility] Serum or plasma alkaline dima sphatase measurementOrdered By: Mikhail Esposito on 09-22-2024 ALP [Catalytic activity/Vol] 71 U/L 35-104 [facility] Serum or plasma calcium loretta urement (mass/volume)Ordered By: Mayda Garcia on 09-22-2024 Calcium [Mass/Vol] 8.4 mg/dL 7.6-11.0 [facility] Serum or plasma cholesterol in HDL measurement (mass/volume)Ordered By: Mikhail Esposito on 09-22-2024 Cholesterol in HDL [Mass/Vol] 58 mg/dL >40 [facility] Serum or plasma cholesterol measurement (mass/volume)Ordered By: Mikhail Esposito on 09-22-2024 Cholesterol [Mass/Vol] 206 mg/dL High <201 [facility] Serum or plasma urea nitroge n measurement (mass/volume)Ordered By: Mayda Garcia on 09-22-2024 Urea nitrogen [Mass/Vol] 23 mg/dL High 4-19 [facility] Serum rheumatoid factor dete ctionOrdered By: Mayda Garcia on 09-22-2024 Rheumatoid factor Ql (S) < 10.0 IU/mL <15 [facility] Sodium levelOrdered By: Noris Garcia on 09-22-2024 Sodium [Moles/Vol] 140 mmol/L 133-145 [facility] Total proteinOrdered By: Fer Esposito on 09-22-2024 Protein [Mass/Vol] 6.5 g/dL 5.9-8.4 [facility] White blood cell (WBC) count Ordered By: Mayda Garcia on 09-22-2024 WBC (Bld) [#/Vol] 4.3 10*3/uL Low 4.4-11.0 [facility] Internal Medicine Office Vis iton 09-21-2024 Internal Medicine Office Visit Normal [facility] Cardiology Visit Reporton Cardiology Visit Report Normal [facility] 12 Lead EKGon 09-16-2024 12 Lead EKG Normal [facility] Absolute lymphocyte countOrd ered By: Azam Frey on 09-16-2024 Lymphocytes Auto (Unsp spec) [#/Vol] 1.40 10*3/uL 0.83-4.51 [facility] Anion gap in Serum or Plasma Ordered By: Azam Frey on 09-16-2024 Anion gap [Moles/Vol] 10 mmol/L - [facility] Automated lymphocyte count a s percentage of total leukocytesOrdered By: Azam Frey on 09-16-2024 Lymphocytes/100 WBC Auto (Unsp spec) 33.3 % - [facility] BUN/creatinine ratioOrdered By: Azam Frey on 09-16-2024 Urea nitrogen/Creatinine [Mass ratio] 28.6 mg/mg High 10-20 [facility] Basic Metabolic Profile (BMP )on 09-16-2024 BUN/CRE 28.6 RATIO High 10- [facility] Comment on above: Performed By: #### L 500.2500, L503.7505, L100.0100, L501.4021 ####[facility] [address] [place], [address] Calcium [Mass/Vol] 8.7 mg/dL Normal 7.6-11.0 [facility] Comment on above: Performed By: #### L 500.2500, L503.7505, L100.0100, L501.4021 ####[facility] [address] [place], [address] Chloride [Moles/Vol] 109 mmol/L High 98-108 [facility] Comment on above: Performed By: #### L 500.2500, L503.7505, L100.0100, L501.4021 ####[facility] [address] [place], [address] CO2 [Moles/Vol] 23.0 mmol/L Normal 21.0-32.0 [facility] Comment on above: Performed By: #### L 500.2500, L503.7505, L100.0100, L501.4021 ####[facility] [address] [place], [address] Creatinine [Mass/Vol] 0.77 mg/dL Normal 0.70-1.20 [facility] Comment on above: Performed By: #### L 500.2500, L503.7505, L100.0100, L501.4021 ####[facility] [address] [place], [address] GAP 10 Normal 5-15 [facility] Comment on above: Performed By: #### L 500.2500, L503.7505, L100.0100, L501.4021 ####[facility] [address] [place], [address] GFR/1.73 sq M.predicted among non-blacks MDRD (S/P/Bld) [Vol rate/Area] 82 mL/min/{1.73_m2} Normal >60 [facility] Comment on above: Result Comment: mL/m in/1.73m2 CKD-EPI Creatinine Equation (2020) Performed By: #### L 500.2500, L503.7505, L100.0100, L501.4021 ####[facility] [address] [place], [address] Glucose [Mass/Vol] 76 mg/dL Normal 70-99 [facility] Comment on above: Performed By: #### L 500.2500, L503.7505, L100.0100, L501.4021 ####[facility] [address] [place], [address] Potassium [Moles/Vol] 3.7 mmol/L Normal 3.3-5.1 [facility] Comment on above: Performed By: #### L 500.2500, L503.7505, L100.0100, L501.4021 ####[facility] [address] [place], [address] Sodium [Moles/Vol] 142 mmol/L Normal 133-145 [facility] Comment on above: Performed By: #### L 500.2500, L503.7505, L100.0100, L501.4021 ####[facility] [address] [place], [address] Urea nitrogen [Mass/Vol] 22 mg/dL High 4-19 [facility] Comment on above: Performed By: #### L 500.2500, L503.7505, L100.0100, L501.4021 ####[facility] [address] [place], [address] Basophil percentageOrdered B y: Azam Frey on 09-16-2024 Basophils/100 WBC (Bld) 0.2 % 0-1 [facility] CBC W/Diff, Automatedon 09-01 Absolute Lymph 1.40 X10 3/uL Normal 0.83-4.51 [facility] Comment on above: Performed By: #### L 500.2500, L503.7505, L100.0100, L501.4021 ####[facility] [address] [place], [address] Absolute Neut 2.3 X10 3/uL Normal 2.0-7.7 [facility] Comment on above: Performed By: #### L 500.2500, L503.7505, L100.0100, L501.4021 ####[facility] [address] [place], [address] Basophils/100 WBC (Bld) 0.2 % Normal 0-1 [facility] Comment on above: Performed By: #### L 500.2500, L503.7505, L100.0100, L501.4021 ####[facility] [address] [place], [address] Eosinophils/100 WBC (Bld) 2.4 % Normal 0-5 [facility] Comment on above: Performed By: #### L 500.2500, L503.7505, L100.0100, L501.4021 ####[facility] [address] [place], [address] Erythrocyte distribution width (RBC) [Ratio] 13.8 % Normal 11.6-14.6 [facility] Comment on above: Performed By: #### L 500.2500, L503.7505, L100.0100, L501.4021 ####[facility] [address] [place], [address] Hematocrit (Bld) [Volume fraction] 25.8 % Low 37-47 [facility] Comment on above: Performed By: #### L 500.2500, L503.7505, L100.0100, L501.4021 ####[facility] [address] [place], [address] Hemoglobin (Bld) [Mass/Vol] 8.6 g/dL Low 12.0-15.0 [facility] Comment on above: Performed By: #### L 500.2500, L503.7505, L100.0100, L501.4021 ####[facility] [address] [place], [address] IG% 0.500 Normal 0.0-0.9 [facility] Comment on above: Result Comment: IG% - Immature Granulocytes (promyelocytes, myelocytes andmetamyelocytes) > 1% indicates that a LEFT SHIFT is Present. Performed By: #### L 500.2500, L503.7505, L100.0100, L501.4021 ####[facility] [address] [place], [address] Lymphocytes/100 WBC (Bld) 33.3 % Normal 19-41 [facility] Comment on above: Performed By: #### L 500.2500, L503.7505, L100.0100, L501.4021 ####[facility] [address] [place], [address] MCH (RBC) [Entitic mass] 32.5 pg High 27.0-32.0 [facility] Comment on above: Performed By: #### L 500.2500, L503.7505, L100.0100, L501.4021 ####[facility] [address] [place], [address] MCHC (RBC) [Mass/Vol] 33.3 g/dL Normal 32-36 [facility] Comment on above: Performed By: #### L 500.2500, L503.7505, L100.0100, L501.4021 ####[facility] [address] [place], [address] MCV (RBC) [Entitic vol] 97.4 fL Normal 81-99 [facility] Comment on above: Performed By: #### L 500.2500, L503.7505, L100.0100, L501.4021 ####[facility] [address] [place], [address] Monocytes/100 WBC (Bld) 8.6 % Normal 0-10 [facility] Comment on above: Performed By: #### L 500.2500, L503.7505, L100.0100, L501.4021 ####[facility] [address] [place], [address] Neutrophils/100 WBC (Bld) 55.0 % Normal 47-70 [facility] Comment on above: Performed By: #### L 500.2500, L503.7505, L100.0100, L501.4021 ####[facility] [address] [place], [address] Nucleated RBC (Bld) [#/Vol] 0 10*3/uL Normal 0-5 [facility] Comment on above: Performed By: #### L 500.2500, L503.7505, L100.0100, L501.4021 ####[facility] [address] [place], [address] Platelet mean volume (Bld) [Entitic vol] 11.6 fL Normal 6.2-12.0 [facility] Comment on above: Performed By: #### L 500.2500, L503.7505, L100.0100, L501.4021 ####[facility] [address] [place], [address] Platelets (Bld) [#/Vol] 117 10*3/uL Low 150-450 [facility] Comment on above: Performed By: #### L 500.2500, L503.7505, L100.0100, L501.4021 ####[facility] [address] [place], [address] RBC (Bld) [#/Vol] 2.65 10*6/uL Low 4.2-5.[address] [facility] Comment on above: Performed By: #### L 500.2500, L503.7505, L100.0100, L501.4021 ####[facility] [address] [place], [address] RDW SD 48.9 fl High 35.1-43.9 [facility] Comment on above: Performed By: #### L 500.2500, L503.7505, L100.0100, L501.4021 ####[facility] [address] [place], [address] WBC (Bld) [#/Vol] 4.2 10*3/uL Low 4.4-11.0 [facility] Comment on above: Performed By: #### L 500.9077, L503.7500, L100.0100, L501.4021 ####[facility] [address] [place], [address] Carbon dioxide, total [Moles /volume] in Central venous bloodOrdered By: Azam Frey on 09-16-2024 CO2 [Moles/Vol] 23.0 mmol/L 21.0-32.0 [facility] Chest 1 View (Portable)on Chest 1 View (Portable) Normal [facility] Chloride assayOrdered By: Hugh Frey on 09-16-2024 Chloride [Moles/Vol] 109 mmol/L High 98-108 [facility] Emergency Department Summary on 09-16-2024 Emergency Department Summary Normal [facility] Eosinophil percentageOrdered By: Azam Frey on 09-16-2024 Eosinophils/100 WBC (Bld) 2.4 % 0-5 [facility] Erythrocyte distribution wid th ratioOrdered By: Azam Frey on 09-16-2024 Erythrocyte distribution width (RBC) [Ratio] 13.8 % 11.6-14.6 [facility] Erythrocyte distribution wid th standard deviationOrdered By: Azam Frey on 09-16-2024 Erythrocyte distribution width (RBC) [Ratio] 48.9 fl High 35.1-43.9 [facility] Glomerular filtration rate ( GFR) estimation/1.73 sq m using serum, plasma, or whole bOrdered By: Azam Frey on 09-16-2024 GFR/1.73 sq M.predicted among non-blacks MDRD (S/P/Bld) [Vol rate/Area] 82 mL/min/{1.73_m2} >60 [facility] Hematocrit Auto (Bld) [Volum e fraction]Ordered By: Azam Frey on 09-16-2024 Hematocrit (Bld) [Volume fraction] 25.8 % Low 37-47 [facility] Hemoglobin measurementOrdere d By: Azam Frey on 09-16-2024 Hemoglobin (Bld) [Mass/Vol] 8.6 g/dL Low 12.0-15.0 [facility] Immature granulocytes/100 WB C Auto (Bld)Ordered By: Azam Frey on 09-16-2024 Immature granulocytes/100 WBC (Bld) 0.500 % 0.0-0.9 [facility] L499.0042on 09-16-2024 Trop T High Sen 7 ng/L Normal <=14 [facility] Comment on above: Result Comment: Hemo lysis present, Results??could be affected.?? Performed By: #### L 499.0042 ####[facility] [address] [place], [address] L499.0043on 09-16-2024 Trop T High Sen Normal <=14 [facility] Comment on above: Result Comment: Canc elled via OM: Order cancelled - Patient discharged Performed By: #### L 499.0043 ####[facility] [address] [place], [address] L501.4021on 09-16-2024 Trop T High Sen 8 ng/L Normal <=14 [facility] Comment on above: Performed By: #### L 500.2500, L503.7505, L100.0100, L501.4021 ####[facility] [address] [place], [address] L503.7505on 09-16-2024 Natriuretic peptide B (Bld) [Mass/Vol] 239 pg/mL Normal <=900 [facility] Comment on above: Result Comment: Hear t Failure Unlikely: < 300 pg/mLHeart Failure Likely< 50 Years: > 450 pg/mL50-75 Years: > 900 pg/mL>75 Years: > 1800 pg/mL Performed By: #### L 500.2500, L503.7505, L100.0100, L501.4021 ####[facility] [address] [place], [address] MCV (mean corpuscular volume ) determinationOrdered By: Azam Frey on 09-16-2024 MCV (RBC) [Entitic vol] 97.4 fL 81-99 [facility] Mean corpuscular hemoglobin (MCH) determinationOrdered By: Azam Frey on 09-16-2024 MCH (RBC) [Entitic mass] 32.5 pg High 27.0-32.0 [facility] Monocyte percentageOrdered B y: Azam Frey on 09-16-2024 Monocytes/100 WBC (Bld) 8.6 % 0-10 [facility] Natriuretic peptide.B prohor thai N-Terminal [Mass/volume] in Serum or PlasmaOrdered By: Azam Frey on 09-16-2024 Natriuretic peptide.B prohormone N-Terminal [Mass/Vol] 239 pg/mL <900 [facility] Neutrophil percentageOrdered By: Azam Frey on 09-16-2024 Neutrophils/100 WBC (Bld) 55.0 % 47-70 [facility] Platelet countOrdered By: Hugh Frey on 09-16-2024 Platelets (Bld) [#/Vol] 117 10*3/uL Low 150-450 [facility] Potassium measurement (mass/ volume)Ordered By: Azam Frey on 09-16-2024 Potassium (Unsp spec) [Mass/Vol] 3.7 mmol/L 3.3-5.1 [facility] RBC Auto (Bld) [#/Vol]Ordere d By: Azam Frey on 09-16-2024 RBC (Bld) [#/Vol] 2.65 10*6/uL Low 4.2-5.[address] [facility] Serum creatinine measurement (mass/volume)Ordered By: Azam Frey on 09-16-2024 Creatinine [Mass/Vol] 0.77 mg/dL 0.70-1.20 [facility] Serum glucose measurement (m ass/volume)Ordered By: Azam Frey on 09-16-2024 Glucose [Mass/Vol] 76 mg/dL 70-99 [facility] Serum or plasma calcium loretta urement (mass/volume)Ordered By: Azam Frey on 09-16-2024 Calcium [Mass/Vol] 8.7 mg/dL 7.6-11.0 [facility] Serum or plasma urea nitroge n measurement (mass/volume)Ordered By: Azam Frey on 09-16-2024 Urea nitrogen [Mass/Vol] 22 mg/dL High 4-19 [facility] Sodium levelOrdered By: Azam Frey on 09-16-2024 Sodium [Moles/Vol] 142 mmol/L 133-145 [facility] Stool Occult Blood iFOBon STOB Negative Normal [facility] Comment on above: Performed By: #### M 100.3100 ####[facility] [address] [place], [address] Stool gastrointestinal hemog lobin detection by immunologic methodOrdered By: Azam Frey on 09-16-2024 Lower GI hemoglobin IA Ql (Stl) [facility] Troponin T.cardiac [Mass/vol ume] in Serum or Plasma by High sensitivity methodOrdered By: Azam Frey on 09-16-2024 Troponin T.cardiac High sensitivity method [Mass/Vol] 7 ng/L <14 [facility] Troponin T.cardiac High sensitivity method [Mass/Vol] 8 ng/L <14 [facility] White blood cell (WBC) count Ordered By: Azam Frey on 09-16-2024 WBC (Bld) [#/Vol] 4.2 10*3/uL Low 4.4-11.0 [facility] Internal Medicine Office Vis iton 08-10-2024 Internal Medicine Office Visit Normal [facility] No Panel InformationOrdered By: Mayda Garcia on 08-10-2024 6.4 % High 4.2-6.3 [facility] Chest PA and Lateralon 07-15 Chest PA and Lateral Normal [facility] Emergency Department Summary on 07-15-2024 Emergency Department Summary Normal [facility] 12 Lead EKGon 07-14-2024 12 Lead EKG Normal [facility] Absolute lymphocyte countOrd ered By: Ulisses Chan on 07-14-2024 Lymphocytes Auto (Unsp spec) [#/Vol] 1.82 10*3/uL 0.83-4.51 [facility] Absolute neutrophil countOrd ered By: Ulisses Chan on 07-14-2024 Absolute neutrophil count 2.4 X10^3/uL 2.0-7.7 [facility] Anion gap [Moles/Vol]Ordered By: Ulisses Chan on 07-14-2024 Anion gap in Serum or Plasma 12 09-15 [facility] Anion gap in Serum or Plasma Ordered By: Ulisses Chan on 07-14-2024 Anion gap [Moles/Vol] 12 mmol/L 09-15 [facility] Automated lymphocyte count a s percentage of total leukocytesOrdered By: Ulisses Chan on 07-14-2024 Lymphocytes/100 WBC Auto (Unsp spec) 38.7 % [facility] BUN/creatinine ratioOrdered By: Ulisses Chan on 07-14-2024 Urea nitrogen/Creatinine [Mass ratio] 21.2 mg/mg High - [facility] BUN/creatinine ratio 21.2 RATIO High 10- [facility] Basic Metabolic Profile (BMP )on 07-14-2024 BUN/CRE 21.2 RATIO High - [facility] Comment on above: Performed By: #### L 100.0100, L501.4021, L500.2500 ####[facility] [address] [place], [address] Calcium [Mass/Vol] 9.4 mg/dL Normal 7.6-11.0 [facility] Comment on above: Performed By: #### L 100.0100, L501.4021, L500.2500 ####[facility] [address] [place], [address] Chloride [Moles/Vol] 106 mmol/L Normal 98-108 [facility] Comment on above: Performed By: #### L 100.0100, L501.4021, L500.2500 ####[facility] [address] [place], [address] CO2 [Moles/Vol] 23.7 mmol/L Normal 21.0-32.0 [facility] Comment on above: Performed By: #### L 100.0100, L501.4021, L500.2500 ####[facility] [address] [place], [address] Creatinine [Mass/Vol] 0.94 mg/dL Normal 0.70-1.20 [facility] Comment on above: Performed By: #### L 100.0100, L501.4021, L500.2500 ####[facility] [address] [place], [address] ECRCL 52.46 ml/min Normal 50-250 [facility] Comment on above: Performed By: #### L 100.0100, L501.4021, L500.2500 ####[facility] [address] [place], [address] GAP 12 Normal 5-15 [facility] Comment on above: Performed By: #### L 100.0100, L501.4021, L500.2500 ####[facility] [address] [place], [address] GFR/1.73 sq M.predicted among non-blacks MDRD (S/P/Bld) [Vol rate/Area] 65 mL/min/{1.73_m2} Normal >60 [facility] Comment on above: Result Comment: mL/m in/1.73m2 CKD-EPI Creatinine Equation (2020) Performed By: #### L 100.0100, L501.4021, L500.2500 ####[facility] [address] [place], [address] Glucose [Mass/Vol] 141 mg/dL High 70-99 [facility] Comment on above: Performed By: #### L 100.0100, L501.4021, L500.2500 ####[facility] [address] [place], [address] Potassium [Moles/Vol] 3.9 mmol/L Normal 3.3-5.1 [facility] Comment on above: Performed By: #### L 100.0100, L501.4021, L500.2500 ####[facility] [address] [place], [address] Sodium [Moles/Vol] 142 mmol/L Normal 133-145 [facility] Comment on above: Performed By: #### L 100.0100, L501.4021, L500.2500 ####[facility] [address] [place], [address] Urea nitrogen [Mass/Vol] 20 mg/dL High 4-19 [facility] Comment on above: Performed By: #### L 100.0100, L501.4021, L500.2500 ####[facility] [address] [place], [address] Basophil percentageOrdered B y: Ulisses Rocio on 07-14-2024 Basophils/100 WBC (Bld) 0.2 % 0-1 [facility] Basophil percentage 0.2 % 0-[address] [facility] CBC W/Diff, Automatedon 07-02 Absolute Lymph 1.82 X10 3/uL Normal 0.83-4.51 [facility] Comment on above: Performed By: #### L 100.0100, L501.4021, L500.2500 ####[facility] [address] [place], [address] Absolute Neut 2.4 X10 3/uL Normal 2.0-7.7 [facility] Comment on above: Performed By: #### L 100.0100, L501.4021, L500.2500 ####[facility] [address] [place], [address] Basophils/100 WBC (Bld) 0.2 % Normal 0-1 [facility] Comment on above: Performed By: #### L 100.0100, L501.4021, L500.2500 ####[facility] [address] [place], [address] Eosinophils/100 WBC (Bld) 1.7 % Normal 0-5 [facility] Comment on above: Performed By: #### L 100.0100, L501.4021, L500.2500 ####[facility] [address] [place], [address] Erythrocyte distribution width (RBC) [Ratio] 13.2 % Normal 11.6-14.6 [facility] Comment on above: Performed By: #### L 100.0100, L501.4021, L500.2500 ####[facility] [address] [place], [address] Hematocrit (Bld) [Volume fraction] 35.2 % Low 37-47 [facility] Comment on above: Performed By: #### L 100.0100, L501.4021, L500.2500 ####[facility] [address] [place], [address] Hemoglobin (Bld) [Mass/Vol] 11.8 g/dL Low 12.0-15.0 [facility] Comment on above: Performed By: #### L 100.0100, L501.4021, L500.2500 ####[facility] [address] [place], [address] IG% 0.200 Normal 0.0-0.9 [facility] Comment on above: Result Comment: IG% - Immature Granulocytes (promyelocytes, myelocytes andmetamyelocytes) > 1% indicates that a LEFT SHIFT is Present. Performed By: #### L 100.0100, L501.4021, L500.2500 ####[facility] [address] [place], [address] Lymphocytes/100 WBC (Bld) 38.7 % Normal 19-41 [facility] Comment on above: Performed By: #### L 100.0100, L501.4021, L500.2500 ####[facility] [address] [place], [address] MCH (RBC) [Entitic mass] 32.3 pg High 27.0-32.0 [facility] Comment on above: Performed By: #### L 100.0100, L501.4021, L500.2500 ####[facility] [address] [place], [address] MCHC (RBC) [Mass/Vol] 33.5 g/dL Normal 32-36 [facility] Comment on above: Performed By: #### L 100.0100, L501.4021, L500.2500 ####[facility] [address] [place], [address] MCV (RBC) [Entitic vol] 96.4 fL Normal 81-99 [facility] Comment on above: Performed By: #### L 100.0100, L501.4021, L500.2500 ####[facility] [address] [place], [address] Monocytes/100 WBC (Bld) 8.1 % Normal 0-10 [facility] Comment on above: Performed By: #### L 100.0100, L501.4021, L500.2500 ####[facility] [address] [place], [address] Neutrophils/100 WBC (Bld) 51.1 % Normal 47-70 [facility] Comment on above: Performed By: #### L 100.0100, L501.4021, L500.2500 ####[facility] [address] [place], [address] Nucleated RBC (Bld) [#/Vol] 0 10*3/uL Normal 0-5 [facility] Comment on above: Performed By: #### L 100.0100, L501.4021, L500.2500 ####[facility] [address] [place], [address] Platelet mean volume (Bld) [Entitic vol] 10.8 fL Normal 6.2-12.0 [facility] Comment on above: Performed By: #### L 100.0100, L501.4021, L500.2500 ####[facility] [address] [place], [address] Platelets (Bld) [#/Vol] 208 10*3/uL Normal 150-450 [facility] Comment on above: Performed By: #### L 100.0100, L501.4021, L500.2500 ####[facility] [address] [place], [address] RBC (Bld) [#/Vol] 3.65 10*6/uL Low 4.2-5.[address] [facility] Comment on above: Performed By: #### L 100.0100, L501.4021, L500.2500 ####[facility] [address] [place], [address] RDW SD 47.2 fl High 35.1-43.9 [facility] Comment on above: Performed By: #### L 100.0100, L501.4021, L500.2500 ####[facility] [address] [place], [address] WBC (Bld) [#/Vol] 4.7 10*3/uL Normal 4.4-11.0 [facility] Comment on above: Performed By: #### L 100.0100, L501.4021, L500.2500 ####[facility] [address] [place], [address] Calcium [Mass/Vol]Ordered By : Ulisses Chan on 07-14-2024 Serum or plasma calcium measurement (mass/volume) 9.4 mg/dL 7.6-11.0 [facility] Carbon dioxide, total [Moles /volume] in Central venous bloodOrdered By: Ulisses Chan on 07-14-2024 CO2 [Moles/Vol] 23.7 mmol/L 21.0-32.0 [facility] Carbon dioxide, total [Moles/volume] in Central venous blood 23.7 mmol/L 21.0-32.0 [facility] Chest without Contraston Chest without Contrast Normal [facility] Chloride assayOrdered By: Margarito Chan on 07-14-2024 Chloride [Moles/Vol] 106 mmol/L 98-108 [facility] Chloride assay 106 mmol/L 98-108 [facility] Creatinine [Mass/Vol]Ordered By: Ulisses Chan on 07-14-2024 Serum creatinine measurement (mass/volume) 0.94 mg/dL 0.70-1.20 [facility] Emergency Department Summary on 07-14-2024 Emergency Department Summary Normal [facility] Eosinophil percentageOrdered By: Ulisses Chan on 07-14-2024 Eosinophils/100 WBC (Bld) 1.7 % 0-5 [facility] Eosinophil percentage 1.7 % 0-5 [facility] Erythrocyte distribution wid th (RBC) [Entitic vol]Ordered By: Ulisses Chan on 07-14-2024 Erythrocyte distribution width standard deviation 47.2 fl High 35.1-43.9 [facility] Erythrocyte distribution wid th (RBC) [Ratio]Ordered By: Ulisses Chan on 07-14-2024 Erythrocyte distribution width ratio 13.2 % 11.6-14.6 [facility] Erythrocyte distribution wid th ratioOrdered By: Ulisses Chan on 07-14-2024 Erythrocyte distribution width (RBC) [Ratio] 13.2 % 11.6-14.6 [facility] Erythrocyte distribution wid th standard deviationOrdered By: Ulisses Chan on 07-14-2024 Erythrocyte distribution width (RBC) [Ratio] 47.2 fl High 35.1-43.9 [facility] Estimation of creatinine carl aranceOrdered By: Ulisses Chan on 07-14-2024 Estimation of creatinine clearance 52.46 ml/min 50-250 [facility] GFR/1.73 sq M.predicted leland g non-blacks MDRD (S/P/Bld) [Vol rate/Area]Ordered By: Ulisses Chan on 07-14-2024 Glomerular filtration rate (GFR) estimation/1.73 sq m using serum, plasma, or whole b 65 >60 [facility] Glomerular filtration rate ( GFR) estimation/1.73 sq m using serum, plasma, or whole bOrdered By: Ulisses Chan on 07-14-2024 GFR/1.73 sq M.predicted among non-blacks MDRD (S/P/Bld) [Vol rate/Area] 65 mL/min/{1.73_m2} >60 [facility] Glucose [Mass/Vol]Ordered By : Ulisses Chan on 07-14-2024 Serum glucose measurement (mass/volume) 141 mg/dL High 70-99 [facility] Hematocrit Auto (Bld) [Volum e fraction]Ordered By: Ulisses Chan on 07-14-2024 Hematocrit (Bld) [Volume fraction] 35.2 % Low 37-47 [facility] Automated blood hematocrit (percentage) 35.2 % Low 37-47 [facility] Hemoglobin measurementOrdere d By: Ulisses Chan on 07-14-2024 Hemoglobin (Bld) [Mass/Vol] 11.8 g/dL Low 12.0-15.0 [facility] Hemoglobin measurement 11.8 g/dL Low 12.0-15.0 [facility] Immature granulocytes/100 WB C Auto (Bld)Ordered By: Ulisses Chan on 07-14-2024 Immature granulocytes/100 WBC (Bld) 0.200 % 0.0-0.9 [facility] Automated immature granulocyte percentage 0.200 % 0.0-0.9 [facility] L499.0042on 07-14-2024 Trop T High Sen 11 ng/L Normal <=14 [facility] Comment on above: Performed By: #### L 499.0042 ####[facility] [address] [place], [address] L499.0043on 07-14-2024 Trop T High Sen Normal <=14 [facility] Comment on above: Result Comment: NO S PECIMEN COLLECTED. PATIENT DEPARTED ED Performed By: #### L 499.0043 ####[facility] [address] [place], [place], [address] L501.4021on 07-14-2024 Trop T High Sen 9 ng/L Normal <=14 [facility] Comment on above: Performed By: #### L 100.0100, L501.4021, L500.2500 ####[facility] [address] [place], [address] Lymphocytes Auto (Unsp spec) [#/Vol]Ordered By: Ulisses Chan on 07-14-2024 Absolute lymphocyte count 1.82 X10^3/uL 0.83-4.51 [facility] Lymphocytes/100 WBC Auto (Un sp spec)Ordered By: Ulisses Chan on 07-14-2024 Automated lymphocyte count as percentage of total leukocytes 38.7 % 19-41 [facility] MCV (RBC) [Entitic vol]Order ed By: Ulisses Chan on 07-14-2024 MCV (mean corpuscular volume) determination 96.4 fL 81-99 [facility] MCV (mean corpuscular volume ) determinationOrdered By: Ulisses Chan on 07-14-2024 MCV (RBC) [Entitic vol] 96.4 fL 81-99 [facility] Mean corpuscular hemoglobin (MCH) determinationOrdered By: Ulisses Chan on 07-14-2024 MCH (RBC) [Entitic mass] 32.3 pg High 27.0-32.0 [facility] Mean corpuscular hemoglobin (MCH) determination 32.3 pg High 27.0-32.0 [facility] Mean corpuscular hemoglobin concentration (MCHC) determinationOrdered By: Ulisses Chan on 07-14-2024 Mean corpuscular hemoglobin concentration (MCHC) determination 33.5 g/dL 32-36 [facility] Mean platelet volume determi nationOrdered By: Ulisses Chan on 07-14-2024 Mean platelet volume determination 10.8 fl 6.2-12.0 [facility] Monocyte percentageOrdered B y: Ulisses Chan on 07-14-2024 Monocytes/100 WBC (Bld) 8.1 % 0-10 [facility] Monocyte percentage 8.1 % 0-[address] [facility] Neutrophil percentageOrdered By: Ulisses Chan on 07-14-2024 Neutrophils/100 WBC (Bld) 51.1 % 47-70 [facility] Neutrophil percentage 51.1 % 47-70 [facility] No Panel InformationOrdered By: Ulisses Chan on 07-14-2024 9 ng/L <14 [facility] Nucleated red blood cell per centageOrdered By: Ulisses Chan on 07-14-2024 Nucleated red blood cell percentage 0 % 0-5 [facility] Platelet countOrdered By: Margarito Chan on 07-14-2024 Platelets (Bld) [#/Vol] 208 10*3/uL 150-450 [facility] Platelet count 208 K/mm3 150-450 [facility] Potassium (Unsp spec) [Mass/ Vol]Ordered By: Ulisses Chan on 07-14-2024 Potassium measurement (mass/volume) 3.9 mmol/L 3.3-5.1 [facility] Potassium measurement (mass/ volume)Ordered By: Ulisses Chan on 07-14-2024 Potassium (Unsp spec) [Mass/Vol] 3.9 mmol/L 3.3-5.1 [facility] RBC Auto (Bld) [#/Vol]Ordere d By: Ulisses Chan on 07-14-2024 RBC (Bld) [#/Vol] 3.65 10*6/uL Low 4.2-5.[address] [facility] Automated blood erythrocyte count 3.65 M/mm3 Low 4.2-5.4 [facility] Serum creatinine measurement (mass/volume)Ordered By: Ulisses Chan on 07-14-2024 Creatinine [Mass/Vol] 0.94 mg/dL 0.70-1.20 [facility] Serum glucose measurement (m ass/volume)Ordered By: Ulisses Chan on 07-14-2024 Glucose [Mass/Vol] 141 mg/dL High 70-99 [facility] Serum or plasma calcium loretta urement (mass/volume)Ordered By: Ulisses Chan on 07-14-2024 Calcium [Mass/Vol] 9.4 mg/dL 7.6-11.0 [facility] Serum or plasma urea nitroge n measurement (mass/volume)Ordered By: Ulisses Chan on 07-14-2024 Urea nitrogen [Mass/Vol] 20 mg/dL High 4-19 [facility] Sodium levelOrdered By: Ulisses Chan on 07-14-2024 Sodium [Moles/Vol] 142 mmol/L 133-145 [facility] Sodium level 142 mmol/L 133-145 [facility] Troponin T.cardiac High sens itivity method [Mass/Vol]Ordered By: Ulisses Chan on 07-14-2024 Troponin T.cardiac [Mass/volume] in Serum or Plasma by High sensitivity method 11 ng/L <14 [facility] Troponin T.cardiac [Mass/vol ume] in Serum or Plasma by High sensitivity methodOrdered By: Ulisses Chan on 07-14-2024 Troponin T.cardiac High sensitivity method [Mass/Vol] 11 ng/L <14 [facility] Urea nitrogen [Mass/Vol]Orde red By: Ulisses Chan on 07-14-2024 Serum or plasma urea nitrogen measurement (mass/volume) 20 mg/dL High 4-19 [facility] White blood cell (WBC) count Ordered By: Ulisses Chan on 07-14-2024 WBC (Bld) [#/Vol] 4.7 10*3/uL 4.4-11.0 [facility] White blood cell (WBC) count 4.7 K/mm3 4.4-11.0 [facility] Office Visit Reporton 2024 Office Visit Report Normal [facility] ALP [Catalytic activity/Vol] Ordered By: Yee Rowland on 06-22-2024 Serum or plasma alkaline phosphatase measurement 60 U/L 45-117 [facility] ALT [Catalytic activity/Vol] Ordered By: Yee Rowland on 06-22-2024 Serum or plasma alanine aminotransferase (ALT) measurement 22 U/L 13-56 [facility] Absolute lymphocyte countOrd ered By: Yee Rowland on 06-22-2024 Lymphocytes Auto (Unsp spec) [#/Vol] 1.44 10*3/uL 0.83-4.51 [facility] Absolute neutrophil countOrd ered By: Yee Rowland on 06-22-2024 Absolute neutrophil count 2.0 X10^3/uL 2.0-7.7 [facility] Albumin [Mass/Vol]Ordered By : Yee Rowland on 06-22-2024 Serum or plasma albumin measurement (mass/volume) 3.1 g/dL Low 3.2-5.0 [facility] Albumin to globulin ratioOrd ered By: Yee Rowland on 06-22-2024 Albumin to globulin ratio 0.9 RATIO 0.9-2.4 [facility] Automated lymphocyte count a s percentage of total leukocytesOrdered By: Yee Rowland on 06-22-2024 Lymphocytes/100 WBC Auto (Unsp spec) 37.7 % - [facility] Basophil percentageOrdered B y: Yee Rowland on 06-22-2024 Basophils/100 WBC (Bld) 0.5 % 0-1 [facility] Basophil percentage 0.5 % 0-[address] [facility] Bilirubin, totalOrdered By: Yeejazlyn Rowland on 06-22-2024 Bilirubin [Mass/Vol] 0.40 mg/dL 0.20-1.00 [facility] Bilirubin, total 0.40 mg/dL 0.20-1.00 [facility] Blood urea nitrogen (BUN)/cr eatinine ratioOrdered By: Yeejazlyn Rowland on 06-22-2024 Blood urea nitrogen (BUN)/creatinine ratio 26.2 RATIO High 10-20 [facility] CBC W/Diff, Automatedon 06-04 Absolute Lymph 1.44 X10 3/uL Normal 0.83-4.51 [facility] Comment on above: Performed By: #### L 500.4050, L100.0100 ####[facility] [address] [place], [address] Absolute Neut 2.0 X10 3/uL Normal 2.0-7.7 [facility] Comment on above: Performed By: #### L 500.4050, L100.0100 ####[facility] [address] [place], [address] Basophils/100 WBC (Bld) 0.5 % Normal 0-1 [facility] Comment on above: Performed By: #### L 500.4050, L100.0100 ####[facility] [address] [place], [address] Eosinophils/100 WBC (Bld) 2.6 % Normal 0-5 [facility] Comment on above: Performed By: #### L 500.4050, L100.0100 ####[facility] [address] [place], [address] Erythrocyte distribution width (RBC) [Ratio] 13.4 % Normal 11.6-14.6 [facility] Comment on above: Performed By: #### L 500.4050, L100.0100 ####[facility] [address] [place], [address] Hematocrit (Bld) [Volume fraction] 34.8 % Low 37-47 [facility] Comment on above: Performed By: #### L 500.4050, L100.0100 ####[facility] [address] [place], [address] Hemoglobin (Bld) [Mass/Vol] 11.5 g/dL Low 12.0-15.0 [facility] Comment on above: Performed By: #### L 500.4050, L100.0100 ####[facility] [address] [place], [address] IG% 0.300 Normal 0.0-0.9 [facility] Comment on above: Result Comment: IG% - Immature Granulocytes (promyelocytes, myelocytes andmetamyelocytes) > 1% indicates that a LEFT SHIFT is Present. Performed By: #### L 500.4050, L100.0100 ####[facility] [address] [place], [address] Lymphocytes/100 WBC (Bld) 37.7 % Normal 19-41 [facility] Comment on above: Performed By: #### L 500.4050, L100.0100 ####[facility] [address] [place], [address] MCH (RBC) [Entitic mass] 32.3 pg High 27.0-32.0 [facility] Comment on above: Performed By: #### L 500.4050, L100.0100 ####[facility] [address] [place], [address] MCHC (RBC) [Mass/Vol] 33.0 g/dL Normal 32-36 [facility] Comment on above: Performed By: #### L 500.4050, L100.0100 ####[facility] [address] [place], [address] MCV (RBC) [Entitic vol] 97.8 fL Normal 81-99 [facility] Comment on above: Performed By: #### L 500.4050, L100.0100 ####[facility] [address] [place], [address] Monocytes/100 WBC (Bld) 7.1 % Normal 0-10 [facility] Comment on above: Performed By: #### L 500.4050, L100.0100 ####[facility] [address] [place], [address] Neutrophils/100 WBC (Bld) 51.8 % Normal 47-70 [facility] Comment on above: Performed By: #### L 500.4050, L100.0100 ####[facility] [address] [place], [address] Nucleated RBC (Bld) [#/Vol] 0 10*3/uL Normal 0-5 [facility] Comment on above: Performed By: #### L 500.4050, L100.0100 ####[facility] [address] [place], [address] Platelet mean volume (Bld) [Entitic vol] 11.1 fL Normal 6.2-12.0 [facility] Comment on above: Performed By: #### L 500.4050, L100.0100 ####[facility] [address] [place], [address] Platelets (Bld) [#/Vol] 192 10*3/uL Normal 150-450 [facility] Comment on above: Performed By: #### L 500.4050, L100.0100 ####[facility] [address] [place], [address] RBC (Bld) [#/Vol] 3.56 10*6/uL Low 4.2-5.[address] [facility] Comment on above: Performed By: #### L 500.4050, L100.0100 ####[facility] [address] [place], [address] RDW SD 47.8 fl High 35.1-43.9 [facility] Comment on above: Performed By: #### L 500.4050, L100.0100 ####[facility] [address] [place], [address] WBC (Bld) [#/Vol] 3.8 10*3/uL Low 4.4-11.0 [facility] Comment on above: Performed By: #### L 500.4050, L100.0100 ####[facility] [address] [place], [address] Calcium [Mass/Vol]Ordered By : Yee Rowland on 06-22-2024 Serum or plasma calcium measurement (mass/volume) 8.7 mg/dL 8.5-10.1 [facility] Carbon dioxide measurementOr dered By: Yee Rowland on 06-22-2024 CO2 [Moles/Vol] 25.0 mmol/L 21.0-32.0 [facility] Carbon dioxide measurement 25.0 mmol/L 21.0-32.0 [facility] Chloride measurementOrdered By: Yee Rowland on 06-22-2024 Chloride [Moles/Vol] 110 mmol/L High 98-107 [facility] Chloride measurement 110 mmol/L High 98-107 [facility] Comprehensive Metabolic Prof ilon 06-22-2024 Albumin [Mass/Vol] 3.1 g/dL Low 3.2-5.0 [facility] Comment on above: Performed By: #### L 500.4050, L100.0100 ####[facility] [address] [place], [address] Albumin/Globulin [Mass ratio] 0.9 {ratio} Normal 0.9-2.4 [facility] Comment on above: Performed By: #### L 500.4050, L100.0100 ####[facility] [address] [place], [address] ALK P 60 U/L Normal 45-117 [facility] Comment on above: Performed By: #### L 500.4050, L100.0100 ####[facility] [address] [place], [address] ALT [Catalytic activity/Vol] 22 U/L Normal 13-56 [facility] Comment on above: Performed By: #### L 500.4050, L100.0100 ####[facility] [address] [place], [address] AST [Catalytic activity/Vol] 18 U/L Normal 15-37 [facility] Comment on above: Performed By: #### L 500.4050, L100.0100 ####[facility] [address] [place], [address] Bilirubin [Mass/Vol] 0.40 mg/dL Normal 0.20-1.00 [facility] Comment on above: Result Comment: For patients on eltrombopag therapy, use of Dimension [place] TBIL is not recommended. Performed By: #### L 500.4050, L100.0100 ####[facility] [address] [place], [address] BUN/CRE 26.2 RATIO High 10-20 [facility] Comment on above: Performed By: #### L 500.4050, L100.0100 ####[facility] [address] [place], [address] CA,Total 8.7 mg/dL Normal 8.5-10.1 [facility] Comment on above: Performed By: #### L 500.4050, L100.0100 ####[facility] [address] [place], [address] Chloride [Moles/Vol] 110 mmol/L High 98-107 [facility] Comment on above: Performed By: #### L 500.4050, L100.0100 ####[facility] [address] [place], [address] CO2 [Moles/Vol] 25.0 mmol/L Normal 21.0-32.0 [facility] Comment on above: Performed By: #### L 500.4050, L100.0100 ####[facility] [address] [place], [address] Creatinine [Mass/Vol] 0.88 mg/dL Normal 0.55-1.02 [facility] Comment on above: Result Comment: The validity of the calculated GFR GFRAA in patients over70 years has not been determined. Clinical correlation isessential. Performed By: #### L 500.4050, L100.0100 ####[facility] [address] [place], [address] EST GFR - AA 82 mL/min Normal >60 [facility] Comment on above: Result Comment: Afri can Palauan GFR Calc Performed By: #### L 500.4050, L100.0100 ####[facility] [address] [place], [address] GAP 6 Normal 5-15 [facility] Comment on above: Performed By: #### L 500.4050, L100.0100 ####[facility] [address] [place], [address] GFR/1.73 sq M.predicted among non-blacks MDRD (S/P/Bld) [Vol rate/Area] 68 mL/min/{1.73_m2} Normal >60 [facility] Comment on above: Result Comment: Non- GFR Calc Performed By: #### L 500.4050, L100.0100 ####[facility] [address] [place], [address] Globulin (S) [Mass/Vol] 3.5 g/dL Normal 2.2-4.2 [facility] Comment on above: Performed By: #### L 500.4050, L100.0100 ####[facility] [address] [place], [address] Glucose [Mass/Vol] 103 mg/dL Normal 74-106 [facility] Comment on above: Result Comment: Fast ing Glucose result from 100 to 125 mg/dLsuggests IMPAIRED HOMEOSTASIS per A.D.A. criteria. Performed By: #### L 500.4050, L100.0100 ####[facility] [address] [place], [address] Potassium [Moles/Vol] 4.1 mmol/L Normal 3.5-5.1 [facility] Comment on above: Performed By: #### L 500.4050, L100.0100 ####[facility] [address] [place], [address] Sodium [Moles/Vol] 141 mmol/L Normal 136-145 [facility] Comment on above: Performed By: #### L 500.4050, L100.0100 ####[facility] [address] [place], [address] T PROT 6.6 g/dL Normal 6.4-8.2 [facility] Comment on above: Performed By: #### L 500.4050, L100.0100 ####[facility] [address] [place], [place], [address] Urea nitrogen [Mass/Vol] 23 mg/dL High 7-18 [facility] Comment on above: Performed By: #### L 500.4050, L100.0100 ####[facility] [address] [place], [place], [address] Creatinine [Mass/Vol]Ordered By: Yee Rowland on 06-22-2024 Serum or plasma creatinine measurement (mass/volume) 0.88 mg/dL 0.55-1.02 [facility] Eosinophil percentageOrdered By: [facility] Kashif on 06-22-2024 Eosinophils/100 WBC (Bld) 2.6 % 0-5 [facility] Eosinophil percentage 2.6 % 0-5 [facility] Erythrocyte distribution wid th (RBC) [Entitic vol]Ordered By: [facility] Kashif on 06-22-2024 Erythrocyte distribution width standard deviation 47.8 fl High 35.1-43.9 [facility] Erythrocyte distribution wid th (RBC) [Ratio]Ordered By: Yee Rowland on 06-22-2024 Erythrocyte distribution width ratio 13.4 % 11.6-14.6 [facility] Erythrocyte distribution wid th ratioOrdered By: [facility] Kashif on 06-22-2024 Erythrocyte distribution width (RBC) [Ratio] 13.4 % 11.6-14.6 [facility] Erythrocyte distribution wid th standard deviationOrdered By: [facility] Kashif on 06-22-2024 Erythrocyte distribution width (RBC) [Ratio] 47.8 fl High 35.1-43.9 [facility] Estimated glomerular filtrat ion rate (GFR) AmericanOrdered By: Yee Rowland on 06-22-2024 Estimated glomerular filtration rate (GFR) 82 mL/min >60 [facility] Glomerular filtration rate ( GFR) estimationOrdered By: Yee Rowland on 06-22-2024 GFR/1.73 sq M.predicted among non-blacks MDRD (S/P/Bld) [Vol rate/Area] 68 mL/min/{1.73_m2} >60 [facility] Glomerular filtration rate (GFR) estimation 68 mL/min >60 [facility] Glucose measurementOrdered B y: Yee Rowland on 06-22-2024 Glucose [Mass/Vol] 103 mg/dL 74-106 [facility] Glucose measurement 103 mg/dL 74-[address] [facility] Hematocrit Auto (Bld) [Volum e fraction]Ordered By: Yee Rowland on 06-22-2024 Hematocrit (Bld) [Volume fraction] 34.8 % Low 37-47 [facility] Automated blood hematocrit (percentage) 34.8 % Low 37-47 [facility] Hemoglobin measurementOrdere d By: Yee Rowland on 06-22-2024 Hemoglobin (Bld) [Mass/Vol] 11.5 g/dL Low 12.0-15.0 [facility] Hemoglobin measurement 11.5 g/dL Low 12.0-15.0 [facility] Immature granulocytes/100 WB C Auto (Bld)Ordered By: Yee Rowland on 06-22-2024 Immature granulocytes/100 WBC (Bld) 0.300 % 0.0-0.9 [facility] Automated immature granulocyte percentage 0.300 % 0.0-0.9 [facility] Lymphocytes Auto (Unsp spec) [#/Vol]Ordered By: Yee Rowland on 06-22-2024 Absolute lymphocyte count 1.44 X10^3/uL 0.83-4.51 [facility] Lymphocytes/100 WBC Auto (Un sp spec)Ordered By: Yee Rowland on 06-22-2024 Automated lymphocyte count as percentage of total leukocytes 37.7 % 19-41 [facility] MCV (RBC) [Entitic vol]Order ed By: Yee Rowland on 06-22-2024 MCV (mean corpuscular volume) determination 97.8 fL 81-99 [facility] MCV (mean corpuscular volume ) determinationOrdered By: Yee Rowland on 06-22-2024 MCV (RBC) [Entitic vol] 97.8 fL 81-99 [facility] Mean corpuscular hemoglobin (MCH) determinationOrdered By: Yee Rowland on 06-22-2024 MCH (RBC) [Entitic mass] 32.3 pg High 27.0-32.0 [facility] Mean corpuscular hemoglobin (MCH) determination 32.3 pg High 27.0-32.0 [facility] Mean corpuscular hemoglobin concentration (MCHC) determinationOrdered By: Yee Rowland on 06-22-2024 Mean corpuscular hemoglobin concentration (MCHC) determination 33.0 g/dL 32-36 [facility] Mean platelet volume determi nationOrdered By: Yee Rowland on 06-22-2024 Mean platelet volume determination 11.1 fl 6.2-12.0 [facility] Monocyte percentageOrdered B y: Yee Rowland on 06-22-2024 Monocytes/100 WBC (Bld) 7.1 % 0-10 [facility] Monocyte percentage 7.1 % 0-[address] [facility] Neutrophil percentageOrdered By: Yee Rowland on 06-22-2024 Neutrophils/100 WBC (Bld) 51.8 % 47-70 [facility] Neutrophil percentage 51.8 % 47-70 [facility] No Panel InformationOrdered By: Yee Rowland on 06-22-2024 18 U/L 15-37 [facility] Nucleated red blood cell per centageOrdered By: Yee Rowland on 06-22-2024 Nucleated red blood cell percentage 0 % 0-5 [facility] Platelet countOrdered By: Rene Rowland on 06-22-2024 Platelets (Bld) [#/Vol] 192 10*3/uL 150-450 [facility] Platelet count 192 K/mm3 150-450 [facility] Potassium measurementOrdered By: Yee Rowland on 06-22-2024 Potassium [Moles/Vol] 4.1 mmol/L 3.5-5.1 [facility] Potassium measurement 4.1 mmol/L 3.5-5.1 [facility] RBC Auto (Bld) [#/Vol]Ordere d By: Yee Rowland on 06-22-2024 RBC (Bld) [#/Vol] 3.56 10*6/uL Low 4.2-5.[address] [facility] Automated blood erythrocyte count 3.56 M/mm3 Low 4.2-5.4 [facility] Serum anion gap measurementO rdered By: Yee Rowland on 06-22-2024 Serum anion gap measurement 6 5-15 [facility] Serum globulin measurementOr dered By: Yee Rowland on 06-22-2024 Globulin (S) [Mass/Vol] 3.5 g/dL 2.2-4.2 [facility] Serum globulin measurement 3.5 g/dL 2.2-4.2 [facility] Serum or plasma alanine carvalho otransferase (ALT) measurementOrdered By: Yee Rowland on 06-22-2024 ALT [Catalytic activity/Vol] 22 U/L 13-56 [facility] Serum or plasma albumin loretta urement (mass/volume)Ordered By: Yee Rowland on 06-22-2024 Albumin [Mass/Vol] 3.1 g/dL Low 3.2-5.0 [facility] Serum or plasma alkaline dima sphatase measurementOrdered By: Yee Rowland on 06-22-2024 ALP [Catalytic activity/Vol] 60 U/L 45-117 [facility] Serum or plasma calcium loretta urement (mass/volume)Ordered By: Yee Rowland on 06-22-2024 Calcium [Mass/Vol] 8.7 mg/dL 8.5-10.1 [facility] Serum or plasma creatinine m easurement (mass/volume)Ordered By: Yee Rowland on 06-22-2024 Creatinine [Mass/Vol] 0.88 mg/dL 0.55-1.02 [facility] Serum or plasma urea nitroge n measurement (mass/volume)Ordered By: Yee Rowland on 06-22-2024 Urea nitrogen [Mass/Vol] 23 mg/dL High 7-18 [facility] Sodium levelOrdered By: Karl Rowland on 06-22-2024 Sodium [Moles/Vol] 141 mmol/L 136-145 [facility] Sodium level 141 mmol/L 136-145 [facility] Total proteinOrdered By: Prasad Rowland on 06-22-2024 Protein [Mass/Vol] 6.6 g/dL 6.4-8.2 [facility] Total protein 6.6 g/dL 6.4-8.2 [facility] Urea nitrogen [Mass/Vol]Orde red By: Yee Rowland on 06-22-2024 Serum or plasma urea nitrogen measurement (mass/volume) 23 mg/dL High 7-18 [facility] White blood cell (WBC) count Ordered By: Yee Rowland on 06-22-2024 WBC (Bld) [#/Vol] 3.8 10*3/uL Low 4.4-11.0 [facility] White blood cell (WBC) count 3.8 K/mm3 Low 4.4-11.0 [facility] SCRN MAMM (CAD)W/PAUL BILATo n 06-07-2024 SCRN MAMM (CAD)W/PAUL BILAT Normal [facility] Internal Medicine Office Vis iton 05-20-2024 Internal Medicine Office Visit Normal [facility] No Panel Informationon 05-20 6.5 % High 4.2-6.3 [facility] ALP [Catalytic activity/Vol] Ordered By: Pepe Ruiz on 05-16-2024 Serum or plasma alkaline phosphatase measurement 66 U/L 45-117 [facility] ALT [Catalytic activity/Vol] Ordered By: Pepe Ruiz on 05-16-2024 Serum or plasma alanine aminotransferase (ALT) measurement 22 U/L 13-56 [facility] Albumin [Mass/Vol]Ordered By : Pepe Ruiz on 05-16-2024 Serum or plasma albumin measurement (mass/volume) 3.1 g/dL Low 3.2-5.0 [facility] Albumin to globulin ratioOrd ered By: Pepe Ruiz on 05-16-2024 Albumin to globulin ratio 0.9 RATIO 0.9-2.4 [facility] Ammoniaon 05-16-2024 Ammonia (P) [Moles/Vol] 39.0 umol/L High 11-32 [facility] Comment on above: Performed By: #### L 500.4050, L501.8100, L100.0500, L503.5510 ####[facility] [address] [place], [address] Bilirubin, totalOrdered By: Pepe Ruiz on 05-16-2024 Bilirubin, total 0.30 mg/dL 0.20-1.00 [facility] Blood urea nitrogen (BUN)/cr eatinine ratioOrdered By: Pepe Ruiz on 05-16-2024 Blood urea nitrogen (BUN)/creatinine ratio 23.7 RATIO High 10-20 [facility] CBC-Complete Blood Cnt No Di ffon 05-16-2024 Erythrocyte distribution width (RBC) [Ratio] 13.5 % Normal 11.6-14.6 [facility] Comment on above: Performed By: #### L 500.4050, L501.8100, L100.0500, L503.5510 ####[facility] [address] [place], [address] Hematocrit (Bld) [Volume fraction] 35.5 % Low 37-47 [facility] Comment on above: Performed By: #### L 500.4050, L501.8100, L100.0500, L503.5510 ####[facility] [address] [place], [address] Hemoglobin (Bld) [Mass/Vol] 11.4 g/dL Low 12.0-15.0 [facility] Comment on above: Performed By: #### L 500.4050, L501.8100, L100.0500, L503.5510 ####[facility] [address] [place], [address] MCH (RBC) [Entitic mass] 31.6 pg Normal 27.0-32.0 [facility] Comment on above: Performed By: #### L 500.4050, L501.8100, L100.0500, L503.5510 ####[facility] [address] [place], [address] MCHC (RBC) [Mass/Vol] 32.1 g/dL Normal 32-36 [facility] Comment on above: Performed By: #### L 500.4050, L501.8100, L100.0500, L503.5510 ####[facility] [address] [place], [address] MCV (RBC) [Entitic vol] 98.3 fL Normal 81-99 [facility] Comment on above: Performed By: #### L 500.4050, L501.8100, L100.0500, L503.5510 ####[facility] [address] [place], [address] Platelet mean volume (Bld) [Entitic vol] 11.6 fL Normal 6.2-12.0 [facility] Comment on above: Performed By: #### L 500.4050, L501.8100, L100.0500, L503.5510 ####[facility] [address] [place], [address] Platelets (Bld) [#/Vol] 173 10*3/uL Normal 150-450 [facility] Comment on above: Performed By: #### L 500.4050, L501.8100, L100.0500, L503.5510 ####[facility] [address] [place], [address] RBC (Bld) [#/Vol] 3.61 10*6/uL Low 4.2-5.[address] [facility] Comment on above: Performed By: #### L 500.4050, L501.8100, L100.0500, L503.5510 ####[facility] [address] [place], [address] RDW SD 49.5 fl High 35.1-43.9 [facility] Comment on above: Performed By: #### L 500.4050, L501.8100, L100.0500, L503.5510 ####[facility] [address] [place], [address] WBC (Bld) [#/Vol] 3.5 10*3/uL Low 4.4-11.0 [facility] Comment on above: Performed By: #### L 500.4050, L501.8100, L100.0500, L503.5510 ####[facility] [address], [address] Calcium [Mass/Vol]Ordered By : Pepe Ruiz on 05-16-2024 Serum or plasma calcium measurement (mass/volume) 8.7 mg/dL 8.5-10.1 [facility] Carbon dioxide measurementOr dered By: Pepe Ruiz on 05-16-2024 Carbon dioxide measurement 26.0 mmol/L 21.0-32.0 [facility] Chloride measurementOrdered By: Pepe Ruiz on 05-16-2024 Chloride measurement 111 mmol/L High 98-107 [facility] Comprehensive Metabolic Prof ilon 05-16-2024 Albumin [Mass/Vol] 3.1 g/dL Low 3.2-5.0 [facility] Comment on above: Performed By: #### L 500.4050, L501.8100, L100.0500, L503.5510 ####[facility] [address] [place], [address] Albumin/Globulin [Mass ratio] 0.9 {ratio} Normal 0.9-2.4 [facility] Comment on above: Performed By: #### L 500.4050, L501.8100, L100.0500, L503.5510 ####[facility] [address] [place], [address] ALK P 66 U/L Normal 45-117 [facility] Comment on above: Performed By: #### L 500.4050, L501.8100, L100.0500, L503.5510 ####[facility] [address] [place], [address] ALT [Catalytic activity/Vol] 22 U/L Normal 13-56 [facility] Comment on above: Performed By: #### L 500.4050, L501.8100, L100.0500, L503.5510 ####[facility] [address] [place], [address] AST [Catalytic activity/Vol] 15 U/L Normal 15-37 [facility] Comment on above: Performed By: #### L 500.4050, L501.8100, L100.0500, L503.5510 ####[facility] [address] [place], [address] Bilirubin [Mass/Vol] 0.30 mg/dL Normal 0.20-1.00 [facility] Comment on above: Result Comment: For patients on eltrombopag therapy, use of Dimension [place] TBIL is not recommended. Performed By: #### L 500.4050, L501.8100, L100.0500, L503.5510 ####[facility] [address] [place], [address] BUN/CRE 23.7 RATIO High 10-20 [facility] Comment on above: Performed By: #### L 500.4050, L501.8100, L100.0500, L503.5510 ####[facility] [address] [place], [address] CA,Total 8.7 mg/dL Normal 8.5-10.1 [facility] Comment on above: Performed By: #### L 500.4050, L501.8100, L100.0500, L503.5510 ####[facility] [address] [place], [address] Chloride [Moles/Vol] 111 mmol/L High 98-107 [facility] Comment on above: Performed By: #### L 500.4050, L501.8100, L100.0500, L503.5510 ####[facility] [address] [place], [address] CO2 [Moles/Vol] 26.0 mmol/L Normal 21.0-32.0 [facility] Comment on above: Performed By: #### L 500.4050, L501.8100, L100.0500, L503.5510 ####[facility] [address] [place], [address] Creatinine [Mass/Vol] 0.93 mg/dL Normal 0.55-1.02 [facility] Comment on above: Result Comment: The validity of the calculated GFR GFRAA in patients over70 years has not been determined. Clinical correlation isessential. Performed By: #### L 500.4050, L501.8100, L100.0500, L503.5510 ####[facility] [address] [place], [address] EST GFR - AA 76 mL/min Normal >60 [facility] Comment on above: Result Comment: Afri can Palauan GFR Calc Performed By: #### L 500.4050, L501.8100, L100.0500, L503.5510 ####[facility] [address] [place], [address] GAP 3 Low 5-15 [facility] Comment on above: Performed By: #### L 500.4050, L501.8100, L100.0500, L503.5510 ####[facility] [address] [place], [address] GFR/1.73 sq M.predicted among non-blacks MDRD (S/P/Bld) [Vol rate/Area] 63 mL/min/{1.73_m2} Normal >60 [facility] Comment on above: Result Comment: Non- GFR Calc Performed By: #### L 500.4050, L501.8100, L100.0500, L503.5510 ####[facility] [address] [place], [address] Globulin (S) [Mass/Vol] 3.6 g/dL Normal 2.2-4.2 [facility] Comment on above: Performed By: #### L 500.4050, L501.8100, L100.0500, L503.5510 ####[facility] [address] [place], [address] Glucose [Mass/Vol] 122 mg/dL High 74-106 [facility] Comment on above: Result Comment: Fast ing Glucose result from 100 to 125 mg/dLsuggests IMPAIRED HOMEOSTASIS per A.D.A. criteria. Performed By: #### L 500.4050, L501.8100, L100.0500, L503.5510 ####[facility] [address] [place], [address] Potassium [Moles/Vol] 4.3 mmol/L Normal 3.5-5.1 [facility] Comment on above: Performed By: #### L 500.4050, L501.8100, L100.0500, L503.5510 ####[facility] [address] [place], [address] Sodium [Moles/Vol] 140 mmol/L Normal 136-145 [facility] Comment on above: Performed By: #### L 500.4050, L501.8100, L100.0500, L503.5510 ####[facility] [address] [place], [address] T PROT 6.7 g/dL Normal 6.4-8.2 [facility] Comment on above: Performed By: #### L 500.4050, L501.8100, L100.0500, L503.5510 ####[facility] [address] [place], [address] Urea nitrogen [Mass/Vol] 22 mg/dL High 7-18 [facility] Comment on above: Performed By: #### L 500.4050, L501.8100, L100.0500, L503.5510 ####[facility] [address] [place], [address] Creatinine [Mass/Vol]Ordered By: Pepe Ruiz on 05-16-2024 Serum or plasma creatinine measurement (mass/volume) 0.93 mg/dL 0.55-1.02 [facility] Erythrocyte distribution wid th (RBC) [Entitic vol]Ordered By: Pepe Ruiz on 05-16-2024 Erythrocyte distribution width standard deviation 49.5 fl High 35.1-43.9 [facility] Erythrocyte distribution wid th (RBC) [Ratio]Ordered By: Pepe Ruiz on 05-16-2024 Erythrocyte distribution width ratio 13.5 % 11.6-14.6 [facility] Estimated glomerular filtrat ion rate (GFR) AmericanOrdered By: Pepe Ruiz on 05-16-2024 Estimated glomerular filtration rate (GFR) 76 mL/min >60 [facility] Glomerular filtration rate ( GFR) estimationOrdered By: Pepe Ruiz on 05-16-2024 Glomerular filtration rate (GFR) estimation 63 mL/min >60 [facility] Glucose measurementOrdered B y: Pepe Ruiz on 05-16-2024 Glucose measurement 122 mg/dL High 74-[address] [facility] Hematocrit Auto (Bld) [Volum e fraction]Ordered By: Pepe Ruiz on 05-16-2024 Automated blood hematocrit (percentage) 35.5 % Low 37-47 [facility] Hemoglobin measurementOrdere d By: Pepe Ruiz on 05-16-2024 Hemoglobin measurement 11.4 g/dL Low 12.0-15.0 [facility] MCV (RBC) [Entitic vol]Order ed By: Pepe Ruiz on 05-16-2024 MCV (mean corpuscular volume) determination 98.3 fL 81-99 [facility] Mean corpuscular hemoglobin (MCH) determinationOrdered By: Pepe Ruiz on 05-16-2024 Mean corpuscular hemoglobin (MCH) determination 31.6 pg 27.0-32.0 [facility] Mean corpuscular hemoglobin concentration (MCHC) determinationOrdered By: Pepe Ruiz 05-16-2024 Mean corpuscular hemoglobin concentration (MCHC) determination 32.1 g/dL 32-36 [facility] Mean platelet volume determi nationOrdered By: Pepe Ruiz on 05-16-2024 Mean platelet volume determination 11.6 fl 6.2-12.0 [facility] Neurology Visit Reporton Neurology Visit Report Normal [facility] No Panel InformationOrdered By: Pepe Ruiz on 05-16-2024 15 U/L 15-37 [facility] Platelet countOrdered By: Ra cheyanne Ruiz on 05-16-2024 Platelet count 173 K/mm3 150-450 [facility] Potassium measurementOrdered By: Pepe Ruiz on 05-16-2024 Potassium measurement 4.3 mmol/L 3.5-5.1 [facility] RBC Auto (Bld) [#/Vol]Ordere d By: Pepe Ruiz on 05-16-2024 Automated blood erythrocyte count 3.61 M/mm3 Low 4.2-5.4 [facility] Serum anion gap measurementO rdered By: Pepe Ruiz on 05-16-2024 Serum anion gap measurement 3 Low 5-15 [facility] Serum globulin measurementOr dered By: Pepe Ruiz on 05-16-2024 Serum globulin measurement 3.6 g/dL 2.2-4.2 [facility] Sodium levelOrdered By: Robin Ruiz on 05-16-2024 Sodium level 140 mmol/L 136-145 [facility] Total proteinOrdered By: Jimmie Ruiz on 05-16-2024 Total protein 6.7 g/dL 6.4-8.2 [facility] Urea nitrogen [Mass/Vol]Orde red By: Pepe Ruiz on 05-16-2024 Serum or plasma urea nitrogen measurement (mass/volume) 22 mg/dL High 7-18 [facility] Valproate levelOrdered By: Tere Ruiz on 05-16-2024 Valproate level 74 ug/mL 50-100 [facility] Valproic Acid (Depakene) Lev tommy 05-16-2024 VALPROIC ACID 74 ug/mL Normal 50-100 [facility] Comment on above: Performed By: #### L 500.4050, L501.8100, L100.0500, L503.5510 ####[facility] [address], [address] Venous blood ammonia measure mentOrdered By: Pepe Ruiz on 05-16-2024 Venous blood ammonia measurement 39.0 umol/L High 11-32 [facility] White blood cell (WBC) count Ordered By: Pepe Ruiz on 05-16-2024 White blood cell (WBC) count 3.5 K/mm3 Low 4.4-11.0 [facility] 6 Minute Walk Teston 024 6 Minute Walk Test Normal [facility] Office Visit Reporton 2023 Office Visit Report Normal [facility] Cardiology Visit Reporton Cardiology Visit Report Normal [facility] Urine Cultureon 02-21-2024 URC Below infection natalie corley Mixed Gram Positive Organisms [place] Count 1000-10,000 [facility] Mixed contaminants. Submit a new specimen if indicated. Normal [facility] Comment on above: Performed By: #### M 100.2200, L400.0001 ####[facility] [address] [place], [address] Internal Medicine Office Vis iton 02-19-2024 Internal Medicine Office Visit Normal [facility] Urinalysis, Completeon 02-18 BACTERIA 0 SEEN Normal None Seen [facility] Comment on above: Order Comment: FERNANDO CTOR TO SPECIFY Performed By: #### M 100.2200, L400.0001 ####[facility] [address] [place], [address] EPI,SQUAMOUS 0 SEEN Normal 5-10 [facility] Comment on above: Order Comment: FERNANDO CTOR TO SPECIFY Performed By: #### M 100.2200, L400.0001 ####[facility] [address] [place], [address] Mucus Ql (Urine sed) 0 SEEN Normal [facility] Comment on above: Order Comment: FERNANDO CTOR TO SPECIFY Performed By: #### M 100.2200, L400.0001 ####[facility] [address] [place], [address] RBC 0 SEEN Normal 0-5 [facility] Comment on above: Order Comment: COLLE CTOR TO SPECIFY Performed By: #### M 100.2200, L400.0001 ####[facility] [address] [place], [address] WBC 0 SEEN Normal 0-5 [facility] Comment on above: Order Comment: COLLE CTOR TO SPECIFY Performed By: #### M 100.2200, L400.0001 ####[facility] [address] [place], [address] Ankle min 3 Viewson 02-14-20 24 Ankle min 3 Views Normal [facility] Emergency Department Summary on 02-14-2024 Emergency Department Summary Normal [facility] Office Visit Reporton 2023 Office Visit Report Normal [facility] Neurology Visit Reporton Neurology Visit Report Normal [facility] Internal Medicine Office Vis iton 12-23-2023 Internal Medicine Office Visit Normal [facility] Office Visit Reporton 2023 Office Visit Report Normal [facility] Pulmonary Visit Reporton Pulmonary Visit Report Normal [facility] Bilirubin, Directon 12-02-19 24 Bilirubin.direct [Mass/Vol] 0.08 mg/dL Normal 0.00-0.30 [facility] Comment on above: Order Comment: CMP, CBCD- , LIPID- Performed By: #### L 501.4700, L100.0100, L500.4050, L500.4100 ####[facility] [address] [place], [address] CBC W/Diff, Automatedon 07- Absolute Lymph 1.34 X10 3/uL Normal 0.83-4.51 [facility] Comment on above: Order Comment: CMP, CBCD- , MICHAELLE MÁRQUEZ Performed By: #### L 501.4700, L100.0100, L500.4050, L500.4100 ####[facility] [address] [place], [address] Absolute Neut 2.3 X10 3/uL Normal 2.0-7.7 [facility] Comment on above: Order Comment: CMP, CBCD- , LIPIDSuellen MÁRQUEZ Performed By: #### L 501.4700, L100.0100, L500.4050, L500.4100 ####[facility] [address] [place], [address] Basophils/100 WBC (Bld) 0.5 % Normal 0-1 [facility] Comment on above: Order Comment: CMP, CBCD- , MICHAELLE MÁRQUEZ Performed By: #### L 501.4700, L100.0100, L500.4050, L500.4100 ####[facility] [address] [place], [address] Eosinophils/100 WBC (Bld) 4.1 % Normal 0-5 [facility] Comment on above: Order Comment: CMP, CBCD- , MICHAELLE MÁRQUEZ Performed By: #### L 501.4700, L100.0100, L500.4050, L500.4100 ####[facility] [address] [place], [address] Erythrocyte distribution width (RBC) [Ratio] 13.2 % Normal 11.6-14.6 [facility] Comment on above: Order Comment: CMP, CBCD- MICHAELLE MANE Performed By: #### L 501.4700, L100.0100, L500.4050, L500.4100 ####[facility] [address] [place], [address] Hematocrit (Bld) [Volume fraction] 34.4 % Low 37-47 [facility] Comment on above: Order Comment: CMP, CBCD- , MICHAELLE MÁRQUEZ Performed By: #### L 501.4700, L100.0100, L500.4050, L500.4100 ####[facility] [address] [place], [address] Hemoglobin (Bld) [Mass/Vol] 11.3 g/dL Low 12.0-15.0 [facility] Comment on above: Order Comment: CMP, CBCD- MICHAELLE MANE Performed By: #### L 501.4700, L100.0100, L500.4050, L500.4100 ####[facility] [address] [place], [address] IG% 0.500 Normal 0.0-0.9 [facility] Comment on above: Order Comment: CMP, CBCD- MICHAELLE MANE Result Comment: IG% - Immature Granulocytes (promyelocytes, myelocytes andmetamyelocytes) > 1% indicates that a LEFT SHIFT is Present. Performed By: #### L 501.4700, L100.0100, L500.4050, L500.4100 ####[facility] [address] [place], [address] Lymphocytes/100 WBC (Bld) 32.3 % Normal 19-41 [facility] Comment on above: Order Comment: CMP, CBCD- MICHAELLE MANE Performed By: #### L 501.4700, L100.0100, L500.4050, L500.4100 ####[facility] [address] [place], [address] MCH (RBC) [Entitic mass] 32.2 pg High 27.0-32.0 [facility] Comment on above: Order Comment: CMP, CBCD- , MICHAELLE MÁRQUEZ Performed By: #### L 501.4700, L100.0100, L500.4050, L500.4100 ####[facility] [address] [place], [address] MCHC (RBC) [Mass/Vol] 32.8 g/dL Normal 32-36 [facility] Comment on above: Order Comment: CMP, CBCD- , LIPIDSuellen MÁRQUEZ Performed By: #### L 501.4700, L100.0100, L500.4050, L500.4100 ####[facility] [address] [place], [address] MCV (RBC) [Entitic vol] 98.0 fL Normal 81-99 [facility] Comment on above: Order Comment: CMP, CBCD- , MICHAELLE MÁRQUEZ Performed By: #### L 501.4700, L100.0100, L500.4050, L500.4100 ####[facility] [address] [place], [address] Monocytes/100 WBC (Bld) 7.0 % Normal 0-10 [facility] Comment on above: Order Comment: CMP, CBCD- MICHAELLE MANE Performed By: #### L 501.4700, L100.0100, L500.4050, L500.4100 ####[facility] [address] [place], [address] Neutrophils/100 WBC (Bld) 55.6 % Normal 47-70 [facility] Comment on above: Order Comment: CMP, CBCD- MICHAELLE MANE Performed By: #### L 501.4700, L100.0100, L500.4050, L500.4100 ####[facility] [address] [place], [address] Nucleated RBC (Bld) [#/Vol] 0 10*3/uL Normal 0-5 [facility] Comment on above: Order Comment: CMP, CBCD- , LIPIDSuellen MÁRQUEZ Performed By: #### L 501.4700, L100.0100, L500.4050, L500.4100 ####[facility] [address] [place], [address] Platelet mean volume (Bld) [Entitic vol] 11.3 fL Normal 6.2-12.0 [facility] Comment on above: Order Comment: CMP, CBCD- , LIPIDSuellen MÁRQUEZ Performed By: #### L 501.4700, L100.0100, L500.4050, L500.4100 ####[facility] [address] [place], [address] Platelets (Bld) [#/Vol] 207 10*3/uL Normal 150-450 [facility] Comment on above: Order Comment: CMP, CBCD- MICHAELLE MANE Performed By: #### L 501.4700, L100.0100, L500.4050, L500.4100 ####[facility] [address] [place], [address] RBC (Bld) [#/Vol] 3.51 10*6/uL Low 4.2-5.[address] [facility] Comment on above: Order Comment: CMP, CBCD- , MICHAELLE MÁRQUEZ Performed By: #### L 501.4700, L100.0100, L500.4050, L500.4100 ####[facility] [address] [place], [address] RDW SD 47.1 fl High 35.1-43.9 [facility] Comment on above: Order Comment: CMP, CBCD- MICHAELLE MANE Performed By: #### L 501.4700, L100.0100, L500.4050, L500.4100 ####[facility] [address] [place], [address] WBC (Bld) [#/Vol] 4.2 10*3/uL Low 4.4-11.0 [facility] Comment on above: Order Comment: CMP, CBCD- DR.VALLANKILIVER LIPIDSuellen MÁRQUEZ Performed By: #### L 501.4700, L100.0100, L500.4050, L500.4100 ####[facility] [address] [place], [address] Comprehensive Metabolic Prof rion 12-02-2023 Albumin [Mass/Vol] 3.0 g/dL Low 3.2-5.0 [facility] Comment on above: Order Comment: CMP, CBCD- MICHAELLE MANE Performed By: #### L 501.4700, L100.0100, L500.4050, L500.4100 ####[facility] [address] [place], [address] Albumin/Globulin [Mass ratio] 0.8 {ratio} Low 0.9-2.4 [facility] Comment on above: Order Comment: CMP, CBCDMICHAELLE KENNY Performed By: #### L 501.4700, L100.0100, L500.4050, L500.4100 ####[facility] [address] [place], [address] ALK P 70 U/L Normal 45-117 [facility] Comment on above: Order Comment: MYA, CBCDMICHAELLE KENNY Performed By: #### L 501.4700, L100.0100, L500.4050, L500.4100 ####[facility] [address] [place], [address] ALT [Catalytic activity/Vol] 23 U/L Normal 13-56 [facility] Comment on above: Order Comment: MYA, CBCD- , LIPIDSuellen MÁRQUEZ Performed By: #### L 501.4700, L100.0100, L500.4050, L500.4100 ####[facility] [address] [place], [address] AST [Catalytic activity/Vol] 14 U/L Low 15-37 [facility] Comment on above: Order Comment: MYA CBCD- MICHAELLE MANE Performed By: #### L 501.4700, L100.0100, L500.4050, L500.4100 ####[facility] [address] [place], [address] BUN/CRE 15.6 RATIO Normal 10-20 [facility] Comment on above: Order Comment: MYA, CBCD- MICHAELLE MANE Performed By: #### L 501.4700, L100.0100, L500.4050, L500.4100 ####[facility] [address] [place], [address] CA,Total 8.4 mg/dL Low 8.5-10.1 [facility] Comment on above: Order Comment: MYA CBCD- MICHAELLE MANE Performed By: #### L 501.4700, L100.0100, L500.4050, L500.4100 ####[facility] [address] [place], [address] Chloride [Moles/Vol] 112 mmol/L High 98-107 [facility] Comment on above: Order Comment: MYA CBCMICHAELLE FLANAGAN Performed By: #### L 501.4700, L100.0100, L500.4050, L500.4100 ####[facility] [address] [place], [address] CO2 [Moles/Vol] 28.0 mmol/L Normal 21.0-32.0 [facility] Comment on above: Order Comment: MYA, CBCD- , LIPID- Performed By: #### L 501.4700, L100.0100, L500.4050, L500.4100 ####[facility] [address] [place], [address] Creatinine [Mass/Vol] 0.96 mg/dL Normal 0.55-1.02 [facility] Comment on above: Order Comment: MYA CBCNapoleon- , LIPID- Result Comment: The validity of the calculated GFR GFRAA in patients over70 years has not been determined. Clinical correlation isessential. Performed By: #### L 501.4700, L100.0100, L500.4050, L500.4100 ####[facility] [address] [place], [address] EST GFR - AA 74 mL/min Normal >60 [facility] Comment on above: Order Comment: MYA CBCNapoleon- , BRODERICK- Result Comment: Afri can Palauan GFR Calc Performed By: #### L 501.4700, L100.0100, L500.4050, L500.4100 ####[facility] [address] [place], [address] GAP 4 Low 5-15 [facility] Comment on above: Order Comment: MYA CBCNapoleon- , BRODERICK- Performed By: #### L 501.4700, L100.0100, L500.4050, L500.4100 ####[facility] [address] [place], [address] GFR/1.73 sq M.predicted among non-blacks MDRD (S/P/Bld) [Vol rate/Area] 61 mL/min/{1.73_m2} Normal >60 [facility] Comment on above: Order Comment: MYA CBCD- , LIPID- Result Comment: Non- GFR Calc Performed By: #### L 501.4700, L100.0100, L500.4050, L500.4100 ####[facility] [address] [place], [address] Globulin (S) [Mass/Vol] 3.8 g/dL Normal 2.2-4.2 [facility] Comment on above: Order Comment: MYA CBCD- , LIPID- Performed By: #### L 501.4700, L100.0100, L500.4050, L500.4100 ####[facility] [address] [place], [address] Glucose [Mass/Vol] 126 mg/dL High 74-106 [facility] Comment on above: Order Comment: ED ROQUE- , LIPID- Result Comment: Fast ing Glucose result greater than or equal to 126 mg/dLsuggests DIABETES MELLITUS per A.D.A. criteria. Performed By: #### L 501.4700, L100.0100, L500.4050, L500.4100 ####[facility] [address] [place], [address] Potassium [Moles/Vol] 3.9 mmol/L Normal 3.5-5.1 [facility] Comment on above: Order Comment: MYA CBCD- , LIPIDSuellen MÁRQUEZ Performed By: #### L 501.4700, L100.0100, L500.4050, L500.4100 ####[facility] [address] [place], [address] Sodium [Moles/Vol] 144 mmol/L Normal 136-145 [facility] Comment on above: Order Comment: CMP, CBCD- , LIPID- Performed By: #### L 501.4700, L100.0100, L500.4050, L500.4100 ####[facility] [address] [place], [address] T BILI < 0.10 Low 0.20-1.00 [facility] Comment on above: Order Comment: CMP, CBCD- , LIPID- Result Comment: For patients on eltrombopag therapy, use of Dimension [place] TBIL is not recommended. Performed By: #### L 501.4700, L100.0100, L500.4050, L500.4100 ####[facility] [address] [place], [address] T PROT 6.8 g/dL Normal 6.4-8.2 [facility] Comment on above: Order Comment: CMP, CBCD- , LIPID- Performed By: #### L 501.4700, L100.0100, L500.4050, L500.4100 ####[facility] [address] [place], [address] Urea nitrogen [Mass/Vol] 15 mg/dL Normal 7-18 [facility] Comment on above: Order Comment: CMP, CBCD- , LIPID- Performed By: #### L 501.4700, L100.0100, L500.4050, L500.4100 ####[facility] [address] [place], [address] Internal Medicine Office Vis iton 12-02-2023 Internal Medicine Office Visit Normal [facility] Lipid Profileon 12-02-2023 Cholesterol [Mass/Vol] 155 mg/dL Normal 200 [facility] Comment on above: Order Comment: CMP, CBCD- , LIPID- Result Comment: <200 mg/dL Desirable 200-240 mg/dL Borderline >240 mg/dL High Risk Performed By: #### L 501.4700, L100.0100, L500.4050, L500.4100 ####[facility] [address] [place], [address] Cholesterol in HDL [Mass/Vol] 56 mg/dL Normal [facility] Comment on above: Order Comment: MYA, CBCD- , LIPID- Result Comment: The drugs N-Acetylcysteine and Metamizole may falselydepress this assay. Reference Range HDL <40 mg/dL Low HDL Cholesterol HDL >or= 60 mg/dL High HDL Cholesterol Performed By: #### L 501.4700, L100.0100, L500.4050, L500.4100 ####[facility] [address] [place], [address] Cholesterol in LDL [Mass/Vol] 85 mg/dL Normal 0-130 [facility] Comment on above: Order Comment: MYA, CBCD- , LIPID- Performed By: #### L 501.4700, L100.0100, L500.4050, L500.4100 ####[facility] [address] [place], [address] Cholesterol in VLDL [Mass/Vol] 14 mg/dL Normal 5-40 [facility] Comment on above: Order Comment: MYA, CBCD- , LIPID- Performed By: #### L 501.4700, L100.0100, L500.4050, L500.4100 ####[facility] [address] [place], [address] Triglyceride [Mass/Vol] 72 mg/dL Normal [facility] Comment on above: Order Comment: MYA, CBCD- , LIPID- DR.ROOF Result Comment: The drugs N-Acetylcysteine and Metamizole may falselydepress this assay.Serum Triglycerides Reference Interval Normal <150 mg/dL Borderline high 150 - 199 mg/dL High 200 - 499 mg/dL Very High > or = 500 mg/dL Performed By: #### L 501.4700, L100.0100, L500.4050, L500.4100 ####[facility] [address] [place], [address] Comprehensive Metabolic Prof ilon 11-24-2023 ALB Normal 3.2-5.0 [facility] Comment on above: Result Comment: Canc elled via OM: Order cancelled - Patient discharged Performed By: #### L 500.4050 ####[facility] [address] [place], [address] ALK P Normal 45-117 [facility] Comment on above: Result Comment: Canc elled via OM: Order cancelled - Patient discharged Performed By: #### L 500.4050 ####[facility] [address] [place], [address] ALT Normal 13-56 [facility] Comment on above: Result Comment: Canc elled via OM: Order cancelled - Patient discharged Performed By: #### L 500.4050 ####[facility] [address] [place], [address] AST Normal 15-37 [facility] Comment on above: Result Comment: Canc elled via OM: Order cancelled - Patient discharged Performed By: #### L 500.4050 ####[facility] [address] [place], [address] BUN Normal 7-18 [facility] Comment on above: Result Comment: Canc elled via OM: Order cancelled - Patient discharged Performed By: #### L 500.4050 ####[facility] [address] [place], [address] BUN/CRE Normal 10-20 [facility] Comment on above: Result Comment: Canc elled via OM: Order cancelled - Patient discharged Performed By: #### L 500.4050 ####[facility] [address] [place], [address] CA,Total Normal 8.5-10.1 [facility] Comment on above: Result Comment: Canc elled via OM: Order cancelled - Patient discharged Performed By: #### L 500.4050 ####[facility] [address] [place], [address] CL Normal 98-107 [facility] Comment on above: Result Comment: Canc elled via OM: Order cancelled - Patient discharged Performed By: #### L 500.4050 ####[facility] [address] [place], [address] CO2 Normal 21.0-32.0 [facility] Comment on above: Result Comment: Canc elled via OM: Order cancelled - Patient discharged Performed By: #### L 500.4050 ####[facility] [address] [place], [address] CREAT,SERUM Normal 0.55-1.02 [facility] Comment on above: Result Comment: Canc elled via OM: Order cancelled - Patient discharged Performed By: #### L 500.4050 ####[facility] [address] [place], [address] EST GFR Normal >60 [facility] Comment on above: Result Comment: Canc elled via OM: Order cancelled - Patient discharged Performed By: #### L 500.4050 ####[facility] [address] [place], [address] EST GFR - AA Normal >60 [facility] Comment on above: Result Comment: Canc elled via OM: Order cancelled - Patient discharged Performed By: #### L 500.4050 ####[facility] [address] [place], [address] GAP Normal 5-15 [facility] Comment on above: Result Comment: Canc elled via OM: Order cancelled - Patient discharged Performed By: #### L 500.4050 ####[facility] [address] [place], [address] GLU Normal 74-106 [facility] Comment on above: Result Comment: Canc elled via OM: Order cancelled - Patient discharged Performed By: #### L 500.4050 ####[facility] [address] [place], [address] Potassium Normal 3.5-5.1 [facility] Comment on above: Result Comment: Canc elled via OM: Order cancelled - Patient discharged Performed By: #### L 500.4050 ####[facility] [address] [place], [address] T BILI Normal 0.20-1.00 [facility] Comment on above: Result Comment: Canc elled via OM: Order cancelled - Patient discharged Performed By: #### L 500.4050 ####[facility] [address] [place], [address] T PROT Normal 6.4-8.2 [facility] Comment on above: Result Comment: Canc elled via OM: Order cancelled - Patient discharged Performed By: #### L 500.4050 ####[facility] [address] [place], [address] Comprehensive Metabolic Profil Normal 136-145 [facility] Comment on above: Result Comment: Canc elled via OM: Order cancelled - Patient discharged Performed By: #### L 500.4050 ####[facility] [address] [place], [address] Culture, Blood (WB)on 2023 CUB No growth in 5 days. Normal [facility] Comment on above: Performed By: #### M 200.1000 ####[facility] [address] [place], [address] CBC W/Diff, Automatedon 07-2 Absolute Neut Normal 2.0-7.7 [facility] Comment on above: Result Comment: Canc elled via OM: Order cancelled - Patient discharged Performed By: #### L 100.0100, L500.2500 ####[facility] [address] [place], [address] HCT Normal 37-47 [facility] Comment on above: Result Comment: Canc elled via OM: Order cancelled - Patient discharged Performed By: #### L 100.0100, L500.2500 ####[facility] [address] [place], [address] HGB Normal 12.0-15.0 [facility] Comment on above: Result Comment: Canc elled via OM: Order cancelled - Patient discharged Performed By: #### L 100.0100, L500.2500 ####[facility] [address] [place], [address] MCH Normal 27.0-32.0 [facility] Comment on above: Result Comment: Canc elled via OM: Order cancelled - Patient discharged Performed By: #### L 100.0100, L500.2500 ####[facility] [address] [place], [address] MCHC Normal 32-36 [facility] Comment on above: Result Comment: Canc elled via OM: Order cancelled - Patient discharged Performed By: #### L 100.0100, L500.2500 ####[facility] [address] [place], [address] MCV Normal 81-99 [facility] Comment on above: Result Comment: Canc elled via OM: Order cancelled - Patient discharged Performed By: #### L 100.0100, L500.2500 ####[facility] [address] [place], [address] NEUT% Normal 47-70 [facility] Comment on above: Result Comment: Canc elled via OM: Order cancelled - Patient discharged Performed By: #### L 100.0100, L500.2500 ####[facility] [address] [place], [address] PLT Normal 150-450 [facility] Comment on above: Result Comment: Canc elled via OM: Order cancelled - Patient discharged Performed By: #### L 100.0100, L500.2500 ####[facility] [address] [place], [address] RBC Normal 4.2-5.4 [facility] Comment on above: Result Comment: Canc elled via OM: Order cancelled - Patient discharged Performed By: #### L 100.0100, L500.2500 ####[facility] [address] [place], [address] RDW CV Normal 11.6-14.6 [facility] Comment on above: Result Comment: Canc elled via OM: Order cancelled - Patient discharged Performed By: #### L 100.0100, L500.2500 ####[facility] [address] [place], [address] RDW SD Normal 35.1-43.9 [facility] Comment on above: Result Comment: Canc elled via OM: Order cancelled - Patient discharged Performed By: #### L 100.0100, L500.2500 ####[facility] [address] [place], [address] WBC Normal 4.4-11.0 [facility] Comment on above: Result Comment: Canc elled via OM: Order cancelled - Patient discharged Performed By: #### L 100.0100, L500.2500 ####[facility] [address] [place], [address] Comprehensive Metabolic Prof ilon 11-23-2023 ALB Normal 3.2-5.0 [facility] Comment on above: Result Comment: Canc elled via OM: Order cancelled - Patient discharged Performed By: #### L 500.4050 ####[facility] [address] [place], [address] ALK P Normal 45-117 [facility] Comment on above: Result Comment: Canc elled via OM: Order cancelled - Patient discharged Performed By: #### L 500.4050 ####[facility] [address] [place], [address] ALT Normal 13-56 [facility] Comment on above: Result Comment: Canc elled via OM: Order cancelled - Patient discharged Performed By: #### L 500.4050 ####[facility] [address] [place], [address] AST Normal 15-37 [facility] Comment on above: Result Comment: Canc elled via OM: Order cancelled - Patient discharged Performed By: #### L 500.4050 ####[facility] [address] [place], [address] BUN Normal 7-18 [facility] Comment on above: Result Comment: Canc elled via OM: Order cancelled - Patient discharged Performed By: #### L 500.4050 ####[facility] [address] [place], [address] Result Comment: Canc elled via OM: MD Ordered Performed By: #### L 100.0100, L500.2500 ####[facility] [address] [place], [address] BUN/CRE Normal 10-20 [facility] Comment on above: Result Comment: Canc elled via OM: Order cancelled - Patient discharged Performed By: #### L 500.4050 ####[facility] [address] [place], [address] Result Comment: Canc elled via OM: MD Ordered Performed By: #### L 100.0100, L500.2500 ####[facility] [address] [place], [address] CA,Total Normal 8.5-10.1 [facility] Comment on above: Result Comment: Canc elled via OM: Order cancelled - Patient discharged Performed By: #### L 500.4050 ####[facility] [address] [place], [address] Result Comment: Canc elled via OM: MD Ordered Performed By: #### L 100.0100, L500.2500 ####[facility] [address] [place], [address] CL Normal 98-107 [facility] Comment on above: Result Comment: Canc elled via OM: Order cancelled - Patient discharged Performed By: #### L 500.4050 ####[facility] [address] [place], [address] Result Comment: Canc elled via OM: MD Ordered Performed By: #### L 100.0100, L500.2500 ####[facility] [address] [place], [address] CO2 Normal 21.0-32.0 [facility] Comment on above: Result Comment: Canc elled via OM: Order cancelled - Patient discharged Performed By: #### L 500.4050 ####[facility] [address] [place], [address] Result Comment: Canc elled via OM: MD Ordered Performed By: #### L 100.0100, L500.2500 ####[facility] [address] [place], [address] CREAT,SERUM Normal 0.55-1.02 [facility] Comment on above: Result Comment: Canc elled via OM: Order cancelled - Patient discharged Performed By: #### L 500.4050 ####[facility] [address] [place], [address] Result Comment: Canc elled via OM: MD Ordered Performed By: #### L 100.0100, L500.2500 ####[facility] [address] [place], [address] EST GFR Normal >60 [facility] Comment on above: Result Comment: Canc elled via OM: Order cancelled - Patient discharged Performed By: #### L 500.4050 ####[facility] [address] [place], [address] Result Comment: Canc elled via OM: MD Ordered Performed By: #### L 100.0100, L500.2500 ####[facility] [address] [place], [address] EST GFR - AA Normal >60 [facility] Comment on above: Result Comment: Canc elled via OM: Order cancelled - Patient discharged Performed By: #### L 500.4050 ####[facility] [address] [place], [address] Result Comment: Canc elled via OM: MD Ordered Performed By: #### L 100.0100, L500.2500 ####[facility] [address] [place], [address] GAP Normal 5-15 [facility] Comment on above: Result Comment: Canc elled via OM: Order cancelled - Patient discharged Performed By: #### L 500.4050 ####[facility] [address] [place], [address] Result Comment: Canc elled via OM: MD Ordered Performed By: #### L 100.0100, L500.2500 ####[facility] [address] [place], [address] GLU Normal 74-106 [facility] Comment on above: Result Comment: Canc elled via OM: Order cancelled - Patient discharged Performed By: #### L 500.4050 ####[facility] [address] [place], [address] Result Comment: Canc elled via OM: MD Ordered Performed By: #### L 100.0100, L500.2500 ####[facility] [address] [place], [address] Potassium Normal 3.5-5.1 [facility] Comment on above: Result Comment: Canc elled via OM: Order cancelled - Patient discharged Performed By: #### L 500.4050 ####[facility] [address] [place], [address] Result Comment: Canc elled via OM: MD Ordered Performed By: #### L 100.0100, L500.2500 ####[facility] [address] [place], [address] T BILI Normal 0.20-1.00 [facility] Comment on above: Result Comment: Canc elled via OM: Order cancelled - Patient discharged Performed By: #### L 500.4050 ####[facility] [address] [place], [address] T PROT Normal 6.4-8.2 [facility] Comment on above: Result Comment: Canc elled via OM: Order cancelled - Patient discharged Performed By: #### L 500.4050 ####[facility] [address] [place], [address] Comprehensive Metabolic Profil Normal 136-145 [facility] Comment on above: Result Comment: Canc elled via OM: Order cancelled - Patient discharged Performed By: #### L 500.4050 ####[facility] [address] [place], [address] Result Comment: Canc elled via OM: MD Ordered Performed By: #### L 100.0100, L500.2500 ####[facility] [address] [place], [address] CBC W/Diff, Automatedon 07-2 Absolute Neut Normal 2.0-7.7 [facility] Comment on above: Result Comment: Canc elled via OM: Order cancelled - Patient discharged Performed By: #### L 100.0100, L500.2500 ####[facility] [address] [place], [address] HCT Normal 37-47 [facility] Comment on above: Result Comment: Canc elled via OM: Order cancelled - Patient discharged Performed By: #### L 100.0100, L500.2500 ####[facility] [address] [place], [address] HGB Normal 12.0-15.0 [facility] Comment on above: Result Comment: Canc elled via OM: Order cancelled - Patient discharged Performed By: #### L 100.0100, L500.2500 ####[facility] [address] [place], [address] MCH Normal 27.0-32.0 [facility] Comment on above: Result Comment: Canc elled via OM: Order cancelled - Patient discharged Performed By: #### L 100.0100, L500.2500 ####[facility] [address] [place], [address] MCHC Normal 32-36 [facility] Comment on above: Result Comment: Canc elled via OM: Order cancelled - Patient discharged Performed By: #### L 100.0100, L500.2500 ####[facility] [address] [place], [address] MCV Normal 81-99 [facility] Comment on above: Result Comment: Canc elled via OM: Order cancelled - Patient discharged Performed By: #### L 100.0100, L500.2500 ####[facility] [address] [place], [address] NEUT% Normal 47-70 [facility] Comment on above: Result Comment: Canc elled via OM: Order cancelled - Patient discharged Performed By: #### L 100.0100, L500.2500 ####[facility] [address] [place], [address] PLT Normal 150-450 [facility] Comment on above: Result Comment: Canc elled via OM: Order cancelled - Patient discharged Performed By: #### L 100.0100, L500.2500 ####[facility] [address] [place], [address] RBC Normal 4.2-5.4 [facility] Comment on above: Result Comment: Canc elled via OM: Order cancelled - Patient discharged Performed By: #### L 100.0100, L500.2500 ####[facility] [address] [place], [address] RDW CV Normal 11.6-14.6 [facility] Comment on above: Result Comment: Canc elled via OM: Order cancelled - Patient discharged Performed By: #### L 100.0100, L500.2500 ####[facility] [address] [place], [address] RDW SD Normal 35.1-43.9 [facility] Comment on above: Result Comment: Canc elled via OM: Order cancelled - Patient discharged Performed By: #### L 100.0100, L500.2500 ####[facility] [address] [place], [address] WBC Normal 4.4-11.0 [facility] Comment on above: Result Comment: Canc elled via OM: Order cancelled - Patient discharged Performed By: #### L 100.0100, L500.2500 ####[facility] [address] [place], [address] Comprehensive Metabolic Prof ilon 11-22-2023 ALB Normal 3.2-5.0 [facility] Comment on above: Result Comment: Canc elled via OM: Order cancelled - Patient discharged Performed By: #### L 500.4050 ####[facility] [address] [place], [address] ALK P Normal 45-117 [facility] Comment on above: Result Comment: Canc elled via OM: Order cancelled - Patient discharged Performed By: #### L 500.4050 ####[facility] [address] [place], [address] ALT Normal 13-56 [facility] Comment on above: Result Comment: Canc elled via OM: Order cancelled - Patient discharged Performed By: #### L 500.4050 ####[facility] [address] [place], [address] AST Normal 15-37 [facility] Comment on above: Result Comment: Canc elled via OM: Order cancelled - Patient discharged Performed By: #### L 500.4050 ####[facility] [address] [place], [address] BUN Normal 7-18 [facility] Comment on above: Result Comment: Canc elled via OM: Order cancelled - Patient discharged Performed By: #### L 500.4050 ####[facility] [address] [place], [address] Result Comment: Canc elled via OM: MD Ordered Performed By: #### L 100.0100, L500.2500 ####[facility] [address] [place], [address] BUN/CRE Normal 10-20 [facility] Comment on above: Result Comment: Canc elled via OM: Order cancelled - Patient discharged Performed By: #### L 500.4050 ####[facility] [address] [place], [address] Result Comment: Canc elled via OM: MD Ordered Performed By: #### L 100.0100, L500.2500 ####[facility] [address] [place], [address] CA,Total Normal 8.5-10.1 [facility] Comment on above: Result Comment: Canc elled via OM: Order cancelled - Patient discharged Performed By: #### L 500.4050 ####[facility] [address] [place], [address] Result Comment: Canc elled via OM: MD Ordered Performed By: #### L 100.0100, L500.2500 ####[facility] [address] [place], [address] CL Normal 98-107 [facility] Comment on above: Result Comment: Canc elled via OM: Order cancelled - Patient discharged Performed By: #### L 500.4050 ####[facility] [address] [place], [address] Result Comment: Canc elled via OM: MD Ordered Performed By: #### L 100.0100, L500.2500 ####[facility] [address] [place], [address] CO2 Normal 21.0-32.0 [facility] Comment on above: Result Comment: Canc elled via OM: Order cancelled - Patient discharged Performed By: #### L 500.4050 ####[facility] [address] [place], [address] Result Comment: Canc elled via OM: MD Ordered Performed By: #### L 100.0100, L500.2500 ####[facility] [address] [place], [address] CREAT,SERUM Normal 0.55-1.02 [facility] Comment on above: Result Comment: Canc elled via OM: Order cancelled - Patient discharged Performed By: #### L 500.4050 ####[facility] [address] [place], [address] Result Comment: Canc elled via OM: MD Ordered Performed By: #### L 100.0100, L500.2500 ####[facility] [address] [place], [address] EST GFR Normal >60 [facility] Comment on above: Result Comment: Canc elled via OM: Order cancelled - Patient discharged Performed By: #### L 500.4050 ####[facility] [address] [place], [address] Result Comment: Canc elled via OM: MD Ordered Performed By: #### L 100.0100, L500.2500 ####[facility] [address] [place], [address] EST GFR - AA Normal >60 [facility] Comment on above: Result Comment: Canc elled via OM: Order cancelled - Patient discharged Performed By: #### L 500.4050 ####[facility] [address] [place], [address] Result Comment: Canc elled via OM: MD Ordered Performed By: #### L 100.0100, L500.2500 ####[facility] [address] [place], [address] GAP Normal 5-15 [facility] Comment on above: Result Comment: Canc elled via OM: Order cancelled - Patient discharged Performed By: #### L 500.4050 ####[facility] [address] [place], [address] Result Comment: Canc elled via OM: MD Ordered Performed By: #### L 100.0100, L500.2500 ####[facility] [address] [place], [address] GLU Normal 74-106 [facility] Comment on above: Result Comment: Canc elled via OM: Order cancelled - Patient discharged Performed By: #### L 500.4050 ####[facility] [address] [place], [address] Result Comment: Canc elled via OM: MD Ordered Performed By: #### L 100.0100, L500.2500 ####[facility] [address] [place], [address] Potassium Normal 3.5-5.1 [facility] Comment on above: Result Comment: Canc elled via OM: Order cancelled - Patient discharged Performed By: #### L 500.4050 ####[facility] [address] [place], [address] Result Comment: Canc elled via OM: MD Ordered Performed By: #### L 100.0100, L500.2500 ####[facility] [address] [place], [address] T BILI Normal 0.20-1.00 [facility] Comment on above: Result Comment: Canc elled via OM: Order cancelled - Patient discharged Performed By: #### L 500.4050 ####[facility] [address] [place], [address] T PROT Normal 6.4-8.2 [facility] Comment on above: Result Comment: Canc elled via OM: Order cancelled - Patient discharged Performed By: #### L 500.4050 ####[facility] [address] [place], [address] Comprehensive Metabolic Profil Normal 136-145 [facility] Comment on above: Result Comment: Canc elled via OM: Order cancelled - Patient discharged Performed By: #### L 500.4050 ####[facility] [address] [place], [address] Result Comment: Canc elled via OM: MD Ordered Performed By: #### L 100.0100, L500.2500 ####[facility] [address] [place], [address] CBC W/Diff, Automatedon 07-2 0-2023 Absolute Neut Normal 2.0-7.7 [facility] Comment on above: Result Comment: Canc elled via OM: Order cancelled - Patient discharged Performed By: #### L 100.0100, L500.2500 ####[facility] [address] [place], [address] HCT Normal 37-47 [facility] Comment on above: Result Comment: Canc elled via OM: Order cancelled - Patient discharged Performed By: #### L 100.0100, L500.2500 ####[facility] [address] [place], [address] HGB Normal 12.0-15.0 [facility] Comment on above: Result Comment: Canc elled via OM: Order cancelled - Patient discharged Performed By: #### L 100.0100, L500.2500 ####[facility] [address] [place], [address] MCH Normal 27.0-32.0 [facility] Comment on above: Result Comment: Canc elled via OM: Order cancelled - Patient discharged Performed By: #### L 100.0100, L500.2500 ####[facility] [address] [place], [address] MCHC Normal 32-36 [facility] Comment on above: Result Comment: Canc elled via OM: Order cancelled - Patient discharged Performed By: #### L 100.0100, L500.2500 ####[facility] [address] [place], [address] MCV Normal 81-99 [facility] Comment on above: Result Comment: Canc elled via OM: Order cancelled - Patient discharged Performed By: #### L 100.0100, L500.2500 ####[facility] [address] [place], [address] NEUT% Normal 47-70 [facility] Comment on above: Result Comment: Canc elled via OM: Order cancelled - Patient discharged Performed By: #### L 100.0100, L500.2500 ####[facility] [address] [place], [address] PLT Normal 150-450 [facility] Comment on above: Result Comment: Canc elled via OM: Order cancelled - Patient discharged Performed By: #### L 100.0100, L500.2500 ####[facility] [address] [place], [address] RBC Normal 4.2-5.4 [facility] Comment on above: Result Comment: Canc elled via OM: Order cancelled - Patient discharged Performed By: #### L 100.0100, L500.2500 ####[facility] [address] [place], [address] RDW CV Normal 11.6-14.6 [facility] Comment on above: Result Comment: Canc elled via OM: Order cancelled - Patient discharged Performed By: #### L 100.0100, L500.2500 ####[facility] [address] [place], [address] RDW SD Normal 35.1-43.9 [facility] Comment on above: Result Comment: Canc elled via OM: Order cancelled - Patient discharged Performed By: #### L 100.0100, L500.2500 ####[facility] [address] [place], [address] WBC Normal 4.4-11.0 [facility] Comment on above: Result Comment: Canc elled via OM: Order cancelled - Patient discharged Performed By: #### L 100.0100, L500.2500 ####[facility] [address] [place], [address] Comprehensive Metabolic Prof ilon 11-21-2023 ALB Normal 3.2-5.0 [facility] Comment on above: Result Comment: Canc elled via OM: Order cancelled - Patient discharged Performed By: #### L 500.4050 ####[facility] [address] [place], [address] ALK P Normal 45-117 [facility] Comment on above: Result Comment: Canc elled via OM: Order cancelled - Patient discharged Performed By: #### L 500.4050 ####[facility] [address] [place], [address] ALT Normal 13-56 [facility] Comment on above: Result Comment: Canc elled via OM: Order cancelled - Patient discharged Performed By: #### L 500.4050 ####[facility] [address] [place], [address] AST Normal 15-37 [facility] Comment on above: Result Comment: Canc elled via OM: Order cancelled - Patient discharged Performed By: #### L 500.4050 ####[facility] [address] [place], [address] BUN Normal 7-18 [facility] Comment on above: Result Comment: Canc elled via OM: Order cancelled - Patient discharged Performed By: #### L 500.4050 ####[facility] [address] [place], [address] Result Comment: Canc elled via OM: MD Ordered Performed By: #### L 100.0100, L500.2500 ####[facility] [address] [place], [address] BUN/CRE Normal 10-20 [facility] Comment on above: Result Comment: Canc elled via OM: Order cancelled - Patient discharged Performed By: #### L 500.4050 ####[facility] [address] [place], [address] Result Comment: Canc elled via OM: MD Ordered Performed By: #### L 100.0100, L500.2500 ####[facility] [address] [place], [address] CA,Total Normal 8.5-10.1 [facility] Comment on above: Result Comment: Canc elled via OM: Order cancelled - Patient discharged Performed By: #### L 500.4050 ####[facility] [address] [place], [address] Result Comment: Canc elled via OM: MD Ordered Performed By: #### L 100.0100, L500.2500 ####[facility] [address] [place], [address] CL Normal 98-107 [facility] Comment on above: Result Comment: Canc elled via OM: Order cancelled - Patient discharged Performed By: #### L 500.4050 ####[facility] [address] [place], [address] Result Comment: Canc elled via OM: MD Ordered Performed By: #### L 100.0100, L500.2500 ####[facility] [address] [place], [address] CO2 Normal 21.0-32.0 [facility] Comment on above: Result Comment: Canc elled via OM: Order cancelled - Patient discharged Performed By: #### L 500.4050 ####[facility] [address] [place], [address] Result Comment: Canc elled via OM: MD Ordered Performed By: #### L 100.0100, L500.2500 ####[facility] [address] [place], [address] CREAT,SERUM Normal 0.55-1.02 [facility] Comment on above: Result Comment: Canc elled via OM: Order cancelled - Patient discharged Performed By: #### L 500.4050 ####[facility] [address] [place], [address] Result Comment: Canc elled via OM: MD Ordered Performed By: #### L 100.0100, L500.2500 ####[facility] [address] [place], [address] EST GFR Normal >60 [facility] Comment on above: Result Comment: Canc elled via OM: Order cancelled - Patient discharged Performed By: #### L 500.4050 ####[facility] [address] [place], [address] Result Comment: Canc elled via OM: MD Ordered Performed By: #### L 100.0100, L500.2500 ####[facility] [address] [place], [address] EST GFR - AA Normal >60 [facility] Comment on above: Result Comment: Canc elled via OM: Order cancelled - Patient discharged Performed By: #### L 500.4050 ####[facility] [address] [place], [address] Result Comment: Canc elled via OM: MD Ordered Performed By: #### L 100.0100, L500.2500 ####[facility] [address] [place], [address] GAP Normal 5-15 [facility] Comment on above: Result Comment: Canc elled via OM: Order cancelled - Patient discharged Performed By: #### L 500.4050 ####[facility] [address] [place], [address] Result Comment: Canc elled via OM: MD Ordered Performed By: #### L 100.0100, L500.2500 ####[facility] [address] [place], [address] GLU Normal 74-106 [facility] Comment on above: Result Comment: Canc elled via OM: Order cancelled - Patient discharged Performed By: #### L 500.4050 ####[facility] [address] [place], [address] Result Comment: Canc elled via OM: MD Ordered Performed By: #### L 100.0100, L500.2500 ####[facility] [address] [place], [address] Potassium Normal 3.5-5.1 [facility] Comment on above: Result Comment: Canc elled via OM: Order cancelled - Patient discharged Performed By: #### L 500.4050 ####[facility] [address] [place], [address] Result Comment: Canc elled via OM: MD Ordered Performed By: #### L 100.0100, L500.2500 ####[facility] [address] [place], [address] T BILI Normal 0.20-1.00 [facility] Comment on above: Result Comment: Canc elled via OM: Order cancelled - Patient discharged Performed By: #### L 500.4050 ####[facility] [address] [place], [address] T PROT Normal 6.4-8.2 [facility] Comment on above: Result Comment: Canc elled via OM: Order cancelled - Patient discharged Performed By: #### L 500.4050 ####[facility] [address] [place], [address] Comprehensive Metabolic Profil Normal 136-145 [facility] Comment on above: Result Comment: Canc elled via OM: Order cancelled - Patient discharged Performed By: #### L 500.4050 ####[facility] [address] [place], [address] Result Comment: Canc elled via OM: MD Ordered Performed By: #### L 100.0100, L500.2500 ####[facility] [address] [place], [address] Basic Metabolic Profile (BMP )on 11-20-2023 BUN Normal 7-18 [facility] Comment on above: Result Comment: Canc elled via OM: MD Ordered Performed By: #### L 500.2500, L100.0100 ####[facility] [address] [place], [address] Result Comment: Canc elled via OM: Order cancelled - Patient discharged Performed By: #### L 500.4050 ####[facility] [address] [place], [address] BUN/CRE Normal 10-20 [facility] Comment on above: Result Comment: Canc elled via OM: MD Ordered Performed By: #### L 500.2500, L100.0100 ####[facility] [address] [place], [address] Result Comment: Canc elled via OM: Order cancelled - Patient discharged Performed By: #### L 500.4050 ####[facility] [address] [place], [address] CA,Total Normal 8.5-10.1 [facility] Comment on above: Result Comment: Canc elled via OM: MD Ordered Performed By: #### L 500.2500, L100.0100 ####[facility] [address] [place], [address] Result Comment: Canc elled via OM: Order cancelled - Patient discharged Performed By: #### L 500.4050 ####[facility] [address] [place], [address] CL Normal 98-107 [facility] Comment on above: Result Comment: Canc elled via OM: MD Ordered Performed By: #### L 500.2500, L100.0100 ####[facility] [address] [place], [address] Result Comment: Canc elled via OM: Order cancelled - Patient discharged Performed By: #### L 500.4050 ####[facility] [address] [place], [address] CO2 Normal 21.0-32.0 [facility] Comment on above: Result Comment: Canc elled via OM: MD Ordered Performed By: #### L 500.2500, L100.0100 ####[facility] [address] [place], [address] Result Comment: Canc elled via OM: Order cancelled - Patient discharged Performed By: #### L 500.4050 ####[facility] [address] [place], [address] CREAT,SERUM Normal 0.55-1.02 [facility] Comment on above: Result Comment: Canc elled via OM: MD Ordered Performed By: #### L 500.2500, L100.0100 ####[facility] [address] [place], [address] Result Comment: Canc elled via OM: Order cancelled - Patient discharged Performed By: #### L 500.4050 ####[facility] [address] [place], [address] EST GFR Normal >60 [facility] Comment on above: Result Comment: Canc elled via OM: MD Ordered Performed By: #### L 500.2500, L100.0100 ####[facility] [address] [place], [address] Result Comment: Canc elled via OM: Order cancelled - Patient discharged Performed By: #### L 500.4050 ####[facility] [address] [place], [address] EST GFR - AA Normal >60 [facility] Comment on above: Result Comment: Canc elled via OM: MD Ordered Performed By: #### L 500.2500, L100.0100 ####[facility] [address] [place], [address] Result Comment: Canc elled via OM: Order cancelled - Patient discharged Performed By: #### L 500.4050 ####[facility] [address] [place], [address] GAP Normal 5-15 [facility] Comment on above: Result Comment: Canc elled via OM: MD Ordered Performed By: #### L 500.2500, L100.0100 ####[facility] [address] [place], [address] Result Comment: Canc elled via OM: Order cancelled - Patient discharged Performed By: #### L 500.4050 ####[facility] [address] [place], [address] GLU Normal 74-106 [facility] Comment on above: Result Comment: Canc elled via OM: MD Ordered Performed By: #### L 500.2500, L100.0100 ####[facility] [address] [place], [address] Result Comment: Canc elled via OM: Order cancelled - Patient discharged Performed By: #### L 500.4050 ####[facility] [address] [place], [address] Potassium Normal 3.5-5.1 [facility] Comment on above: Result Comment: Canc elled via OM: MD Ordered Performed By: #### L 500.2500, L100.0100 ####[facility] [address] [place], [address] Result Comment: Canc elled via OM: Order cancelled - Patient discharged Performed By: #### L 500.4050 ####[facility] [address] [place], [address] Basic Metabolic Profile (BMP) Normal 136-145 [facility] Comment on above: Result Comment: Canc elled via OM: MD Ordered Performed By: #### L 500.2500, L100.0100 ####[facility] [address] [place], [address] Result Comment: Canc elled via OM: Order cancelled - Patient discharged Performed By: #### L 500.4050 ####[facility] [address] [place], [address] CBC W/Diff, Automatedon 07-1 Absolute Neut Normal 2.0-7.7 [facility] Comment on above: Result Comment: Canc elled via OM: Order cancelled - Patient discharged Performed By: #### L 500.2500, L100.0100 ####[facility] [address] [place], [address] HCT Normal 37-47 [facility] Comment on above: Result Comment: Canc elled via OM: Order cancelled - Patient discharged Performed By: #### L 500.2500, L100.0100 ####[facility] [address] [place], [address] HGB Normal 12.0-15.0 [facility] Comment on above: Result Comment: Canc elled via OM: Order cancelled - Patient discharged Performed By: #### L 500.2500, L100.0100 ####[facility] [address] [place], [address] MCH Normal 27.0-32.0 [facility] Comment on above: Result Comment: Canc elled via OM: Order cancelled - Patient discharged Performed By: #### L 500.2500, L100.0100 ####[facility] [address] [place], [address] MCHC Normal 32-36 [facility] Comment on above: Result Comment: Canc elled via OM: Order cancelled - Patient discharged Performed By: #### L 500.2500, L100.0100 ####[facility] [address] [place], [address] MCV Normal 81-99 [facility] Comment on above: Result Comment: Canc elled via OM: Order cancelled - Patient discharged Performed By: #### L 500.2500, L100.0100 ####[facility] [address] [place], [address] NEUT% Normal 47-70 [facility] Comment on above: Result Comment: Canc elled via OM: Order cancelled - Patient discharged Performed By: #### L 500.2500, L100.0100 ####[facility] [address] [place], [address] PLT Normal 150-450 [facility] Comment on above: Result Comment: Canc elled via OM: Order cancelled - Patient discharged Performed By: #### L 500.2500, L100.0100 ####[facility] [address] [place], [address] RBC Normal 4.2-5.4 [facility] Comment on above: Result Comment: Canc elled via OM: Order cancelled - Patient discharged Performed By: #### L 500.2500, L100.0100 ####[facility] [address] [place], [address] RDW CV Normal 11.6-14.6 [facility] Comment on above: Result Comment: Canc elled via OM: Order cancelled - Patient discharged Performed By: #### L 500.2500, L100.0100 ####[facility] [address] [place], [address] RDW SD Normal 35.1-43.9 [facility] Comment on above: Result Comment: Canc elled via OM: Order cancelled - Patient discharged Performed By: #### L 500.2500, L100.0100 ####[facility] [address] [place], [address] WBC Normal 4.4-11.0 [facility] Comment on above: Result Comment: Canc elled via OM: Order cancelled - Patient discharged Performed By: #### L 500.2500, L100.0100 ####[facility] [address] [place], [address] Comprehensive Metabolic Prof ilon 11-20-2023 ALB Normal 3.2-5.0 [facility] Comment on above: Result Comment: Canc elled via OM: Order cancelled - Patient discharged Performed By: #### L 500.4050 ####[facility] [address] [place], [address] ALK P Normal 45-117 [facility] Comment on above: Result Comment: Canc elled via OM: Order cancelled - Patient discharged Performed By: #### L 500.4050 ####[facility] [address] [place], [address] ALT Normal 13-56 [facility] Comment on above: Result Comment: Canc elled via OM: Order cancelled - Patient discharged Performed By: #### L 500.4050 ####[facility] [address] [place], [address] AST Normal 15-37 [facility] Comment on above: Result Comment: Canc elled via OM: Order cancelled - Patient discharged Performed By: #### L 500.4050 ####[facility] [address] [place], [address] T BILI Normal 0.20-1.00 [facility] Comment on above: Result Comment: Canc elled via OM: Order cancelled - Patient discharged Performed By: #### L 500.4050 ####[facility] [address] [place], [address] T PROT Normal 6.4-8.2 [facility] Comment on above: Result Comment: Canc elled via OM: Order cancelled - Patient discharged Performed By: #### L 500.4050 ####[facility] [address] [place], [address] CBC W/Diff, Automatedon 07-1 Absolute Neut Normal 2.0-7.7 [facility] Comment on above: Result Comment: Canc elled via OM: Order cancelled - Patient discharged Performed By: #### L 100.0100, L500.2500 ####[facility] [address] [place], [address] HCT Normal 37-47 [facility] Comment on above: Result Comment: Canc elled via OM: Order cancelled - Patient discharged Performed By: #### L 100.0100, L500.2500 ####[facility] [address] [place], [address] HGB Normal 12.0-15.0 [facility] Comment on above: Result Comment: Canc elled via OM: Order cancelled - Patient discharged Performed By: #### L 100.0100, L500.2500 ####[facility] [address] [place], [address] MCH Normal 27.0-32.0 [facility] Comment on above: Result Comment: Canc elled via OM: Order cancelled - Patient discharged Performed By: #### L 100.0100, L500.2500 ####[facility] [address] [place], [address] MCHC Normal 32-36 [facility] Comment on above: Result Comment: Canc elled via OM: Order cancelled - Patient discharged Performed By: #### L 100.0100, L500.2500 ####[facility] [address] [place], [address] MCV Normal 81-99 [facility] Comment on above: Result Comment: Canc elled via OM: Order cancelled - Patient discharged Performed By: #### L 100.0100, L500.2500 ####[facility] [address] [place], [address] NEUT% Normal 47-70 [facility] Comment on above: Result Comment: Canc elled via OM: Order cancelled - Patient discharged Performed By: #### L 100.0100, L500.2500 ####[facility] [address] [place], [address] PLT Normal 150-450 [facility] Comment on above: Result Comment: Canc elled via OM: Order cancelled - Patient discharged Performed By: #### L 100.0100, L500.2500 ####[facility] [address] [place], [address] RBC Normal 4.2-5.4 [facility] Comment on above: Result Comment: Canc elled via OM: Order cancelled - Patient discharged Performed By: #### L 100.0100, L500.2500 ####[facility] [address] [place], [address] RDW CV Normal 11.6-14.6 [facility] Comment on above: Result Comment: Canc elled via OM: Order cancelled - Patient discharged Performed By: #### L 100.0100, L500.2500 ####[facility] [address] [place], [address] RDW SD Normal 35.1-43.9 [facility] Comment on above: Result Comment: Canc elled via OM: Order cancelled - Patient discharged Performed By: #### L 100.0100, L500.2500 ####[facility] [address] [place], [address] WBC Normal 4.4-11.0 [facility] Comment on above: Result Comment: Canc elled via OM: Order cancelled - Patient discharged Performed By: #### L 100.0100, L500.2500 ####[facility] [address] [place], [address] Comprehensive Metabolic Prof ilon 11-19-2023 ALB Normal 3.2-5.0 [facility] Comment on above: Result Comment: Canc elled via OM: Order cancelled - Patient discharged Performed By: #### L 500.4050 ####[facility] [address] [place], [address] ALK P Normal 45-117 [facility] Comment on above: Result Comment: Canc elled via OM: Order cancelled - Patient discharged Performed By: #### L 500.4050 ####[facility] [address] [place], [address] ALT Normal 13-56 [facility] Comment on above: Result Comment: Canc elled via OM: Order cancelled - Patient discharged Performed By: #### L 500.4050 ####[facility] [address] [place], [address] AST Normal 15-37 [facility] Comment on above: Result Comment: Canc elled via OM: Order cancelled - Patient discharged Performed By: #### L 500.4050 ####[facility] [address] [place], [address] BUN Normal 7-18 [facility] Comment on above: Result Comment: Canc elled via OM: Order cancelled - Patient discharged Performed By: #### L 500.4050 ####[facility] [address] [place], [address] Result Comment: Canc elled via OM: MD Ordered Performed By: #### L 100.0100, L500.2500 ####[facility] [address] [place], [address] BUN/CRE Normal 10-20 [facility] Comment on above: Result Comment: Canc elled via OM: Order cancelled - Patient discharged Performed By: #### L 500.4050 ####[facility] [address] [place], [address] Result Comment: Canc elled via OM: MD Ordered Performed By: #### L 100.0100, L500.2500 ####[facility] [address] [place], [address] CA,Total Normal 8.5-10.1 [facility] Comment on above: Result Comment: Canc elled via OM: Order cancelled - Patient discharged Performed By: #### L 500.4050 ####[facility] [address] [place], [address] Result Comment: Canc elled via OM: MD Ordered Performed By: #### L 100.0100, L500.2500 ####[facility] [address] [place], [address] CL Normal 98-107 [facility] Comment on above: Result Comment: Canc elled via OM: Order cancelled - Patient discharged Performed By: #### L 500.4050 ####[facility] [address] [place], [address] Result Comment: Canc elled via OM: MD Ordered Performed By: #### L 100.0100, L500.2500 ####[facility] [address] [place], [address] CO2 Normal 21.0-32.0 [facility] Comment on above: Result Comment: Canc elled via OM: Order cancelled - Patient discharged Performed By: #### L 500.4050 ####[facility] [address] [place], [address] Result Comment: Canc elled via OM: MD Ordered Performed By: #### L 100.0100, L500.2500 ####[facility] [address] [place], [address] CREAT,SERUM Normal 0.55-1.02 [facility] Comment on above: Result Comment: Canc elled via OM: Order cancelled - Patient discharged Performed By: #### L 500.4050 ####[facility] [address] [place], [address] Result Comment: Canc elled via OM: MD Ordered Performed By: #### L 100.0100, L500.2500 ####[facility] [address] [place], [address] EST GFR Normal >60 [facility] Comment on above: Result Comment: Canc elled via OM: Order cancelled - Patient discharged Performed By: #### L 500.4050 ####[facility] [address] [place], [address] Result Comment: Canc elled via OM: MD Ordered Performed By: #### L 100.0100, L500.2500 ####[facility] [address] [place], [address] EST GFR - AA Normal >60 [facility] Comment on above: Result Comment: Canc elled via OM: Order cancelled - Patient discharged Performed By: #### L 500.4050 ####[facility] [address] [place], [address] Result Comment: Canc elled via OM: MD Ordered Performed By: #### L 100.0100, L500.2500 ####[facility] [address] [place], [address] GAP Normal 5-15 [facility] Comment on above: Result Comment: Canc elled via OM: Order cancelled - Patient discharged Performed By: #### L 500.4050 ####[facility] [address] [place], [address] Result Comment: Canc elled via OM: MD Ordered Performed By: #### L 100.0100, L500.2500 ####[facility] [address] [place], [address] GLU Normal 74-106 [facility] Comment on above: Result Comment: Canc elled via OM: Order cancelled - Patient discharged Performed By: #### L 500.4050 ####[facility] [address] [place], [address] Result Comment: Canc elled via OM: MD Ordered Performed By: #### L 100.0100, L500.2500 ####[facility] [address] [place], [address] Potassium Normal 3.5-5.1 [facility] Comment on above: Result Comment: Canc elled via OM: Order cancelled - Patient discharged Performed By: #### L 500.4050 ####[facility] [address] [place], [address] Result Comment: Canc elled via OM: MD Ordered Performed By: #### L 100.0100, L500.2500 ####[facility] [address] [place], [address] T BILI Normal 0.20-1.00 [facility] Comment on above: Result Comment: Canc elled via OM: Order cancelled - Patient discharged Performed By: #### L 500.4050 ####[facility] [address] [place], [address] T PROT Normal 6.4-8.2 [facility] Comment on above: Result Comment: Canc elled via OM: Order cancelled - Patient discharged Performed By: #### L 500.4050 ####[facility] [address] [place], [address] Comprehensive Metabolic Profil Normal 136-145 [facility] Comment on above: Result Comment: Canc elled via OM: Order cancelled - Patient discharged Performed By: #### L 500.4050 ####[facility] [address] [place], [address] Result Comment: Canc elled via OM: MD Ordered Performed By: #### L 100.0100, L500.2500 ####[facility] [address] [place], [address] Urine Cultureon 11-19-2023 URC Normal [facility] Comment on above: Performed By: #### L 400.0001, M100.2200 ####[facility] [address] [place], [address] Bedside Glucoseon 11-18-2023 FINGERSTICK GLU 109 mg/dL High 74-106 [facility] Comment on above: Result Comment: SONAM GEMENT OF PATIENT CARE PER NURSING PROTOCOL Performed By: #### L 501.080 ####[facility] [address] [place], [address] FINGERSTICK GLU 95 mg/dL Normal 74-106 [facility] Comment on above: Result Comment: SONAM GEMENT OF PATIENT CARE PER NURSING PROTOCOL Performed By: #### L 501.080 ####[facility] [address] [place], [address] CBC W/Diff, Automatedon 07-1 Absolute Lymph 1.27 X10 3/uL Normal 0.83-4.51 [facility] Comment on above: Performed By: #### L 500.4050, L501.6710, L100.0100, L101.9900 ####[facility] [address] [place], [address] Absolute Neut 3.5 X10 3/uL Normal 2.0-7.7 [facility] Comment on above: Performed By: #### L 500.4050, L501.6710, L100.0100, L101.9900 ####[facility] [address] [place], [address] Basophils/100 WBC (Bld) 0.2 % Normal 0-1 [facility] Comment on above: Performed By: #### L 500.4050, L501.6710, L100.0100, L101.9900 ####[facility] [address] [place], [address] Eosinophils/100 WBC (Bld) 1.2 % Normal 0-5 [facility] Comment on above: Performed By: #### L 500.4050, L501.6710, L100.0100, L101.9900 ####[facility] [address] [place], [address] Erythrocyte distribution width (RBC) [Ratio] 12.6 % Normal 11.6-14.6 [facility] Comment on above: Performed By: #### L 500.4050, L501.6710, L100.0100, L101.9900 ####[facility] [address] [place], [address] Hematocrit (Bld) [Volume fraction] 30.0 % Low 37-47 [facility] Comment on above: Performed By: #### L 500.4050, L501.6710, L100.0100, L101.9900 ####[facility] [address] [place], [address] Hemoglobin (Bld) [Mass/Vol] 10.0 g/dL Low 12.0-15.0 [facility] Comment on above: Performed By: #### L 500.4050, L501.6710, L100.0100, L101.9900 ####[facility] [address] [place], [address] IG% 0.600 Normal 0.0-0.9 [facility] Comment on above: Result Comment: IG% - Immature Granulocytes (promyelocytes, myelocytes andmetamyelocytes) > 1% indicates that a LEFT SHIFT is Present. Performed By: #### L 500.4050, L501.6710, L100.0100, L101.9900 ####[facility] [address] [place], [address] Lymphocytes/100 WBC (Bld) 24.9 % Normal 19-41 [facility] Comment on above: Performed By: #### L 500.4050, L501.6710, L100.0100, L101.9900 ####[facility] [address] [place], [address] MCH (RBC) [Entitic mass] 32.3 pg High 27.0-32.0 [facility] Comment on above: Performed By: #### L 500.4050, L501.6710, L100.0100, L101.9900 ####[facility] [address] [place], [address] MCHC (RBC) [Mass/Vol] 33.3 g/dL Normal 32-36 [facility] Comment on above: Performed By: #### L 500.4050, L501.6710, L100.0100, L101.9900 ####[facility] [address] [place], [address] MCV (RBC) [Entitic vol] 96.8 fL Normal 81-99 [facility] Comment on above: Performed By: #### L 500.4050, L501.6710, L100.0100, L101.9900 ####[facility] [address] [place], [address] Monocytes/100 WBC (Bld) 4.7 % Normal 0-10 [facility] Comment on above: Performed By: #### L 500.4050, L501.6710, L100.0100, L101.9900 ####[facility] [address] [place], [address] Neutrophils/100 WBC (Bld) 68.4 % Normal 47-70 [facility] Comment on above: Performed By: #### L 500.4050, L501.6710, L100.0100, L101.9900 ####[facility] [address] [place], [address] Nucleated RBC (Bld) [#/Vol] 0 10*3/uL Normal 0-5 [facility] Comment on above: Performed By: #### L 500.4050, L501.6710, L100.0100, L101.9900 ####[facility] [address] [place], [address] Platelet mean volume (Bld) [Entitic vol] 11.9 fL Normal 6.2-12.0 [facility] Comment on above: Performed By: #### L 500.4050, L501.6710, L100.0100, L101.9900 ####[facility] [address] [place], [address] Platelets (Bld) [#/Vol] 153 10*3/uL Normal 150-450 [facility] Comment on above: Performed By: #### L 500.4050, L501.6710, L100.0100, L101.9900 ####[facility] [address] [place], [address] RBC (Bld) [#/Vol] 3.10 10*6/uL Low 4.2-5.[address] [facility] Comment on above: Performed By: #### L 500.4050, L501.6710, L100.0100, L101.9900 ####[facility] [address] [place], [address] RDW SD 44.5 fl High 35.1-43.9 [facility] Comment on above: Performed By: #### L 500.4050, L501.6710, L100.0100, L101.9900 ####[facility] [address] [place], [address] WBC (Bld) [#/Vol] 5.1 10*3/uL Normal 4.4-11.0 [facility] Comment on above: Performed By: #### L 500.4050, L501.6710, L100.0100, L101.9900 ####[facility] [address] [place], [address] CRPon 11-18-2023 C-REACTIVE PROT 155.00 mg/L High 0.0-3.0 [facility] Comment on above: Result Comment: C-Re active Protein (CRP) provides useful information for thediagnosis, therapy and monitoring of inflammatory processesand associated diseases. For the evaluation of Relative Riskfor Cardiovascular Disease, a High Sensitivity CRP (HSCRP)should be ordered. Performed By: #### L 500.4050, L501.6710, L100.0100, L101.9900 ####[facility] [address] [place], [address] Comprehensive Metabolic Prof ilon 11-18-2023 Albumin [Mass/Vol] 2.5 g/dL Low 3.2-5.0 [facility] Comment on above: Performed By: #### L 500.4050, L501.6710, L100.0100, L101.9900 ####[facility] [address] [place], [address] Albumin/Globulin [Mass ratio] 0.7 {ratio} Low 0.9-2.4 [facility] Comment on above: Performed By: #### L 500.4050, L501.6710, L100.0100, L101.9900 ####[facility] [address] [place], [address] ALK P 73 U/L Normal 45-117 [facility] Comment on above: Performed By: #### L 500.4050, L501.6710, L100.0100, L101.9900 ####[facility] [address] [place], [address] ALT [Catalytic activity/Vol] 34 U/L Normal 13-56 [facility] Comment on above: Performed By: #### L 500.4050, L501.6710, L100.0100, L101.9900 ####[facility] [address] [place], [address] AST [Catalytic activity/Vol] 35 U/L Normal 15-37 [facility] Comment on above: Performed By: #### L 500.4050, L501.6710, L100.0100, L101.9900 ####[facility] [address] [place], [address] Bilirubin [Mass/Vol] 0.30 mg/dL Normal 0.20-1.00 [facility] Comment on above: Result Comment: For patients on eltrombopag therapy, use of Dimension [place] TBIL is not recommended. Performed By: #### L 500.4050, L501.6710, L100.0100, L101.9900 ####[facility] [address] [place], [address] BUN/CRE 27.4 RATIO High 10-20 [facility] Comment on above: Performed By: #### L 500.4050, L501.6710, L100.0100, L101.9900 ####[facility] [address] [place], [address] CA,Total 8.7 mg/dL Normal 8.5-10.1 [facility] Comment on above: Performed By: #### L 500.4050, L501.6710, L100.0100, L101.9900 ####[facility] [address] [place], [address] Chloride [Moles/Vol] 105 mmol/L Normal 98-107 [facility] Comment on above: Performed By: #### L 500.4050, L501.6710, L100.0100, L101.9900 ####[facility] [address] [place], [address] CO2 [Moles/Vol] 25.0 mmol/L Normal 21.0-32.0 [facility] Comment on above: Performed By: #### L 500.4050, L501.6710, L100.0100, L101.9900 ####[facility] [address] [place], [address] Creatinine [Mass/Vol] 0.91 mg/dL Normal 0.55-1.02 [facility] Comment on above: Result Comment: The validity of the calculated GFR GFRAA in patients over70 years has not been determined. Clinical correlation isessential. Performed By: #### L 500.4050, L501.6710, L100.0100, L101.9900 ####[facility] [address] [place], [address] ECRCL 54.83 ml/min Normal [facility] Comment on above: Performed By: #### L 500.4050, L501.6710, L100.0100, L101.9900 ####[facility] [address] [place], [address] EST GFR - AA 78 mL/min Normal >60 [facility] Comment on above: Result Comment: Afri can Palauan GFR Calc Performed By: #### L 500.4050, L501.6710, L100.0100, L101.9900 ####[facility] [address] [place], [address] GAP 8 Normal 5-15 [facility] Comment on above: Performed By: #### L 500.4050, L501.6710, L100.0100, L101.9900 ####[facility] [address] [place], [address] GFR/1.73 sq M.predicted among non-blacks MDRD (S/P/Bld) [Vol rate/Area] 65 mL/min/{1.73_m2} Normal >60 [facility] Comment on above: Result Comment: Non- GFR Calc Performed By: #### L 500.4050, L501.6710, L100.0100, L101.9900 ####[facility] [address] [place], [address] Globulin (S) [Mass/Vol] 3.7 g/dL Normal 2.2-4.2 [facility] Comment on above: Performed By: #### L 500.4050, L501.6710, L100.0100, L101.9900 ####[facility] [address] [place], [address] Glucose [Mass/Vol] 102 mg/dL Normal 74-106 [facility] Comment on above: Result Comment: Fast ing Glucose result from 100 to 125 mg/dLsuggests IMPAIRED HOMEOSTASIS per A.D.A. criteria. Performed By: #### L 500.4050, L501.6710, L100.0100, L101.9900 ####[facility] [address] [place], [address] Potassium [Moles/Vol] 4.0 mmol/L Normal 3.5-5.1 [facility] Comment on above: Performed By: #### L 500.4050, L501.6710, L100.0100, L101.9900 ####[facility] [address] [place], [address] Sodium [Moles/Vol] 138 mmol/L Normal 136-145 [facility] Comment on above: Performed By: #### L 500.4050, L501.6710, L100.0100, L101.9900 ####[facility] [address] [place], [address] T PROT 6.2 g/dL Low 6.4-8.2 [facility] Comment on above: Performed By: #### L 500.4050, L501.6710, L100.0100, L101.9900 ####[facility] [address] [place], [address] Urea nitrogen [Mass/Vol] 25 mg/dL High -18 [facility] Comment on above: Performed By: #### L 500.4050, L501.6710, L100.0100, L101.9900 ####[facility] [address] [place], [address] Discharge Instructionon 11-01 Discharge Instruction Normal [facility] Erythrocyte Sed Rateon 11-17 SED RATE 25 mm/hr Normal 0-30 [facility] Comment on above: Performed By: #### L 500.4050, L501.6710, L100.0100, L101.9900 ####[facility] [address] [place], [address] MR/CON.PCM.NEon 11-18-2023 MR/CON.PCM.NE Normal [facility] Ammoniaon 11-17-2023 Ammonia (P) [Moles/Vol] 41.0 umol/L High 11-32 [facility] Comment on above: Performed By: #### L 509.7000, L101.9900, L500.3400, L503.5510, L501.6710 ####[facility] [address] [place], [address] Basic Metabolic Profile (BMP )on 11-17-2023 BUN/CRE 25.2 RATIO High 10-20 [facility] Comment on above: Performed By: #### L 100.0100, L501.8100, L500.2500 ####[facility] [address] [place], [address] CA,Total 8.5 mg/dL Normal 8.5-10.1 [facility] Comment on above: Performed By: #### L 100.0100, L501.8100, L500.2500 ####[facility] [address] [place], [address] Chloride [Moles/Vol] 105 mmol/L Normal 98-107 [facility] Comment on above: Performed By: #### L 100.0100, L501.8100, L500.2500 ####[facility] [address] [place], [address] CO2 [Moles/Vol] 26.0 mmol/L Normal 21.0-32.0 [facility] Comment on above: Performed By: #### L 100.0100, L501.8100, L500.2500 ####[facility] [address] [place], [address] Creatinine [Mass/Vol] 1.03 mg/dL High 0.55-1.02 [facility] Comment on above: Result Comment: The validity of the calculated GFR GFRAA in patients over70 years has not been determined. Clinical correlation isessential. Performed By: #### L 100.0100, L501.8100, L500.2500 ####[facility] [address] [place], [address] ECRCL 48.44 ml/min Normal [facility] Comment on above: Performed By: #### L 100.0100, L501.8100, L500.2500 ####[facility] [address] [place], [address] EST GFR - AA 68 mL/min Normal >60 [facility] Comment on above: Result Comment: Afri can Palauan GFR Calc Performed By: #### L 100.0100, L501.8100, L500.2500 ####[facility] [address] [place], [address] GAP 5 Normal 5-15 [facility] Comment on above: Performed By: #### L 100.0100, L501.8100, L500.2500 ####[facility] [address] [place], [address] GFR/1.73 sq M.predicted among non-blacks MDRD (S/P/Bld) [Vol rate/Area] 56 mL/min/{1.73_m2} Low >60 [facility] Comment on above: Result Comment: Non- GFR Calc Performed By: #### L 100.0100, L501.8100, L500.2500 ####[facility] [address] [place], [address] Glucose [Mass/Vol] 119 mg/dL High 74-106 [facility] Comment on above: Result Comment: Fast ing Glucose result from 100 to 125 mg/dLsuggests IMPAIRED HOMEOSTASIS per A.D.A. criteria. Performed By: #### L 100.0100, L501.8100, L500.2500 ####[facility] [address] [place], [address] Potassium [Moles/Vol] 4.2 mmol/L Normal 3.5-5.1 [facility] Comment on above: Performed By: #### L 100.0100, L501.8100, L500.2500 ####[facility] [address] [place], [address] Sodium [Moles/Vol] 136 mmol/L Normal 136-145 [facility] Comment on above: Performed By: #### L 100.0100, L501.8100, L500.2500 ####[facility] [address] [place], [address] Urea nitrogen [Mass/Vol] 26 mg/dL High 7-18 [facility] Comment on above: Performed By: #### L 100.0100, L501.8100, L500.2500 ####[facility] [address] [place], [address] Bedside Glucoseon 11-17-2023 FINGERSTICK GLU 94 mg/dL Normal 74-106 [facility] Comment on above: Result Comment: SONAM GEMENT OF PATIENT CARE PER NURSING PROTOCOL Performed By: #### L 501.080 ####[facility] [address] [place], [address] FINGERSTICK GLU 129 mg/dL High 74-106 [facility] Comment on above: Result Comment: SONAM GEMENT OF PATIENT CARE PER NURSING PROTOCOL Performed By: #### L 501.080 ####[facility] [address] [place], [address] FINGERSTICK GLU 146 mg/dL High 74-106 [facility] Comment on above: Result Comment: SONAM GEMENT OF PATIENT CARE PER NURSING PROTOCOL Performed By: #### L 501.080 ####[facility] [address] [place], [address] FINGERSTICK GLU 101 mg/dL Normal 74-106 [facility] Comment on above: Result Comment: SONAM GEMENT OF PATIENT CARE PER NURSING PROTOCOL Performed By: #### L 501.080 ####[facility] [address] [place], [address] CBC W/Diff, Automatedon 07- Absolute Lymph 1.45 X10 3/uL Normal 0.83-4.51 [facility] Comment on above: Performed By: #### L 100.0100, L501.8100, L500.2500 ####[facility] [address] [place], [address] Absolute Neut 4.8 X10 3/uL Normal 2.0-7.7 [facility] Comment on above: Performed By: #### L 100.0100, L501.8100, L500.2500 ####[facility] [address] [place], [address] Basophils/100 WBC (Bld) 0.1 % Normal 0-1 [facility] Comment on above: Performed By: #### L 100.0100, L501.8100, L500.2500 ####[facility] [address] [place], [address] Eosinophils/100 WBC (Bld) 1.0 % Normal 0-5 [facility] Comment on above: Performed By: #### L 100.0100, L501.8100, L500.2500 ####[facility] [address] [place], [address] Erythrocyte distribution width (RBC) [Ratio] 12.9 % Normal 11.6-14.6 [facility] Comment on above: Performed By: #### L 100.0100, L501.8100, L500.2500 ####[facility] [address] [place], [address] Hematocrit (Bld) [Volume fraction] 30.6 % Low 37-47 [facility] Comment on above: Performed By: #### L 100.0100, L501.8100, L500.2500 ####[facility] [address] [place], [address] Hemoglobin (Bld) [Mass/Vol] 10.0 g/dL Low 12.0-15.0 [facility] Comment on above: Performed By: #### L 100.0100, L501.8100, L500.2500 ####[facility] [address] [place], [address] IG% 0.600 Normal 0.0-0.9 [facility] Comment on above: Result Comment: IG% - Immature Granulocytes (promyelocytes, myelocytes andmetamyelocytes) > 1% indicates that a LEFT SHIFT is Present. Performed By: #### L 100.0100, L501.8100, L500.2500 ####[facility] [address] [place], [address] Lymphocytes/100 WBC (Bld) 20.3 % Normal 19-41 [facility] Comment on above: Performed By: #### L 100.0100, L501.8100, L500.2500 ####[facility] [address] [place], [address] MCH (RBC) [Entitic mass] 32.6 pg High 27.0-32.0 [facility] Comment on above: Performed By: #### L 100.0100, L501.8100, L500.2500 ####[facility] [address] [place], [address] MCHC (RBC) [Mass/Vol] 32.7 g/dL Normal 32-36 [facility] Comment on above: Performed By: #### L 100.0100, L501.8100, L500.2500 ####[facility] [address] [place], [address] MCV (RBC) [Entitic vol] 99.7 fL High 81-99 [facility] Comment on above: Performed By: #### L 100.0100, L501.8100, L500.2500 ####[facility] [address] [place], [address] Monocytes/100 WBC (Bld) 10.4 % High 0-10 [facility] Comment on above: Performed By: #### L 100.0100, L501.8100, L500.2500 ####[facility] [address] [place], [address] Neutrophils/100 WBC (Bld) 67.6 % Normal 47-70 [facility] Comment on above: Performed By: #### L 100.0100, L501.8100, L500.2500 ####[facility] [address] [place], [address] Nucleated RBC (Bld) [#/Vol] 0 10*3/uL Normal 0-5 [facility] Comment on above: Performed By: #### L 100.0100, L501.8100, L500.2500 ####[facility] [address] [place], [address] Platelet mean volume (Bld) [Entitic vol] 11.3 fL Normal 6.2-12.0 [facility] Comment on above: Performed By: #### L 100.0100, L501.8100, L500.2500 ####[facility] [address] [place], [address] Platelets (Bld) [#/Vol] 145 10*3/uL Low 150-450 [facility] Comment on above: Performed By: #### L 100.0100, L501.8100, L500.2500 ####[facility] [address] [place], [address] RBC (Bld) [#/Vol] 3.07 10*6/uL Low 4.2-5.[address] [facility] Comment on above: Performed By: #### L 100.0100, L501.8100, L500.2500 ####[facility] [address] [place], [address] RDW SD 46.5 fl High 35.1-43.9 [facility] Comment on above: Performed By: #### L 100.0100, L501.8100, L500.2500 ####[facility] [address] [place], [address] WBC (Bld) [#/Vol] 7.1 10*3/uL Normal 4.4-11.0 [facility] Comment on above: Performed By: #### L 100.0100, L501.8100, L500.2500 ####[facility] [address] [place], [address] CRPon 11-17-2023 C-REACTIVE PROT 161.00 mg/L High 0.0-3.0 [facility] Comment on above: Result Comment: C-Re active Protein (CRP) provides useful information for thediagnosis, therapy and monitoring of inflammatory processesand associated diseases. For the evaluation of Relative Riskfor Cardiovascular Disease, a High Sensitivity CRP (HSCRP)should be ordered. Performed By: #### L 509.7000, L101.9900, L500.3400, L503.5510, L501.6710 ####[facility] [address] [place], [address] Erythrocyte Sed Rateon 11-16 SED RATE 19 mm/hr Normal 0-30 [facility] Comment on above: Performed By: #### L 509.7000, L101.9900, L500.3400, L503.5510, L501.6710 ####[facility] [address] [place], [address] Liver Profileon 11-17-2023 Albumin [Mass/Vol] 2.6 g/dL Low 3.2-5.0 [facility] Comment on above: Performed By: #### L 509.7000, L101.9900, L500.3400, L503.5510, L501.6710 ####[facility] [address] [place], [address] ALK P 50 U/L Normal 45-117 [facility] Comment on above: Performed By: #### L 509.7000, L101.9900, L500.3400, L503.5510, L501.6710 ####[facility] [address] [place], [address] ALT [Catalytic activity/Vol] 14 U/L Normal 13-56 [facility] Comment on above: Performed By: #### L 509.7000, L101.9900, L500.3400, L503.5510, L501.6710 ####[facility] [address] [place], [address] AST [Catalytic activity/Vol] 10 U/L Low 15-37 [facility] Comment on above: Performed By: #### L 509.7000, L101.9900, L500.3400, L503.5510, L501.6710 ####[facility] [address] [place], [address] Bilirubin [Mass/Vol] 0.30 mg/dL Normal 0.20-1.00 [facility] Comment on above: Result Comment: For patients on eltrombopag therapy, use of Dimension [place] TBIL is not recommended. Performed By: #### L 509.7000, L101.9900, L500.3400, L503.5510, L501.6710 ####[facility] [address] [place], [address] Bilirubin.direct [Mass/Vol] 0.11 mg/dL Normal 0.00-0.30 [facility] Comment on above: Performed By: #### L 509.7000, L101.9900, L500.3400, L503.5510, L501.6710 ####[facility] [address] [place], [place], [address] Globulin (S) [Mass/Vol] 3.7 g/dL Normal 2.2-4.2 [facility] Comment on above: Performed By: #### L 509.7000, L101.9900, L500.3400, L503.5510, L501.6710 ####[facility] [address] [place], [place], [address] T PROT 6.3 g/dL Low 6.4-8.2 [facility] Comment on above: Performed By: #### L 509.7000, L101.9900, L500.3400, L503.5510, L501.6710 ####[facility] [address] [place], [place], [address] Procalcitoninon 11-17-2023 Procalcitonin 0.08 ng/mL Normal 0.00-0.09 [facility] Comment on above: Result Comment: A pr ocalcitonin (PCT) level above 2.0 ng/mL on the first day of ICU admission is associated with a high risk for progression to severe sepsis and/or septic shock. A PCT level below 0.5 ng/mL on the first day of ICU admission is associated with a low risk for progression to severe and/or septic shock. Note: Concentrations <0.5 ng/mL do not exclude an infection on account of localized infections (without systemic signs) which can be associated with such low concentrations, or a systemic infection in its initial stages (<6 hours). Furthermore, increased procalcitonin can occur without infection. PCT concentrations between 0.5 and 2.0 ng/mL should be interpreted taking into account the patient's history. It is recommended to retest PCT within 6-24 hours if any concentrations <2 ng/mL are obtained. Performed By: #### L 509.7000, L101.9900, L500.3400, L503.5510, L501.6710 ####[facility] [address] [place], [address] Urinalysis, Completeon 11-16 WBC 0-5 SEEN Normal 0-5 [facility] Comment on above: Order Comment: CLEAN CATCH Performed By: #### L 400.0001, M100.2200 ####[facility] [address] [place], [address] BACTERIA 0 SEEN Normal None Seen [facility] Comment on above: Order Comment: CLEAN CATCH Performed By: #### L 400.0001, M100.2200 ####[facility] [address] [place], [address] EPI,SQUAMOUS 0 SEEN Normal 5-10 [facility] Comment on above: Order Comment: CLEAN CATCH Performed By: #### L 400.0001, M100.2200 ####[facility] [address] [place], [address] Mucus Ql (Urine sed) 0 SEEN Normal [facility] Comment on above: Order Comment: CLEAN CATCH Performed By: #### L 400.0001, M100.2200 ####[facility] [address] [place], [address] RBC 0 SEEN Normal 0-5 [facility] Comment on above: Order Comment: CLEAN CATCH Performed By: #### L 400.0001, M100.2200 ####[facility] [address] [place], [address] Valproic Acid (Depakene) Lev tommy 11-17-2023 VALPROIC ACID 131 ug/mL High 50-100 [facility] Comment on above: Order Comment: Comme nts: before AM depakote Performed By: #### L 100.0100, L501.8100, L500.2500 ####[facility] [address] [place], [address] Basic Metabolic Profile (BMP )on 11-16-2023 BUN/CRE 23.7 RATIO High 10-20 [facility] Comment on above: Performed By: #### L 501.5200, L500.2500, L100.0100, L501.2300, L501.9985 ####[facility] [address] [place], [address] CA,Total 8.5 mg/dL Normal 8.5-10.1 [facility] Comment on above: Performed By: #### L 501.5200, L500.2500, L100.0100, L501.2300, L501.9985 ####[facility] [address] [place], [address] Chloride [Moles/Vol] 105 mmol/L Normal 98-107 [facility] Comment on above: Performed By: #### L 501.5200, L500.2500, L100.0100, L501.2300, L501.9985 ####[facility] [address] [place], [address] CO2 [Moles/Vol] 26.0 mmol/L Normal 21.0-32.0 [facility] Comment on above: Performed By: #### L 501.5200, L500.2500, L100.0100, L501.2300, L501.9985 ####[facility] [address] [place], [address] Creatinine [Mass/Vol] 0.84 mg/dL Normal 0.55-1.02 [facility] Comment on above: Result Comment: The validity of the calculated GFR GFRAA in patients over70 years has not been determined. Clinical correlation isessential. Performed By: #### L 501.5200, L500.2500, L100.0100, L501.2300, L501.9985 ####[facility] [address] [place], [address] ECRCL 59.48 ml/min Normal [facility] Comment on above: Performed By: #### L 501.5200, L500.2500, L100.0100, L501.2300, L501.9985 ####[facility] [address] [place], [address] EST GFR - AA 86 mL/min Normal >60 [facility] Comment on above: Result Comment: Afri can Palauan GFR Calc Performed By: #### L 501.5200, L500.2500, L100.0100, L501.2300, L501.9985 ####[facility] [address] [place], [address] GAP 6 Normal 5-15 [facility] Comment on above: Performed By: #### L 501.5200, L500.2500, L100.0100, L501.2300, L501.9985 ####[facility] [address] [place], [address] GFR/1.73 sq M.predicted among non-blacks MDRD (S/P/Bld) [Vol rate/Area] 71 mL/min/{1.73_m2} Normal >60 [facility] Comment on above: Result Comment: Non- GFR Calc Performed By: #### L 501.5200, L500.2500, L100.0100, L501.2300, L501.9985 ####[facility] [address] [place], [address] Glucose [Mass/Vol] 121 mg/dL High 74-106 [facility] Comment on above: Result Comment: Fast ing Glucose result from 100 to 125 mg/dLsuggests IMPAIRED HOMEOSTASIS per A.D.A. criteria. Performed By: #### L 501.5200, L500.2500, L100.0100, L501.2300, L501.9985 ####[facility] [address] [place], [address] Potassium [Moles/Vol] 4.1 mmol/L Normal 3.5-5.1 [facility] Comment on above: Performed By: #### L 501.5200, L500.2500, L100.0100, L501.2300, L501.9985 ####[facility] [address] [place], [address] Sodium [Moles/Vol] 137 mmol/L Normal 136-145 [facility] Comment on above: Performed By: #### L 501.5200, L500.2500, L100.0100, L501.2300, L501.9985 ####[facility] [address] [place], [address] Urea nitrogen [Mass/Vol] 20 mg/dL High 7-18 [facility] Comment on above: Performed By: #### L 501.5200, L500.2500, L100.0100, L501.2300, L501.9985 ####[facility] [address] [place], [address] Bedside Glucoseon 11-16-2023 FINGERSTICK GLU 84 mg/dL Normal 74-106 [facility] Comment on above: Result Comment: SONAM GEMENT OF PATIENT CARE PER NURSING PROTOCOL Performed By: #### L 501.080 ####[facility] [address] [place], [address] FINGERSTICK GLU 123 mg/dL High 74-106 [facility] Comment on above: Result Comment: SONAM GEMENT OF PATIENT CARE PER NURSING PROTOCOL Performed By: #### L 501.080 ####[facility] [address] [place], [address] FINGERSTICK GLU 138 mg/dL High 74-106 [facility] Comment on above: Result Comment: SONAM GEMENT OF PATIENT CARE PER NURSING PROTOCOL Performed By: #### L 501.080 ####[facility] [address] [place], [address] FINGERSTICK GLU 106 mg/dL Normal 74-106 [facility] Comment on above: Result Comment: SONAM SHUKLA OF PATIENT CARE PER NURSING PROTOCOL Performed By: #### L 501.080 ####[facility] [address] [place], [address] CBC W/Diff, Automatedon 07- Absolute Lymph 1.49 X10 3/uL Normal 0.83-4.51 [facility] Comment on above: Performed By: #### L 501.5200, L500.2500, L100.0100, L501.2300, L501.9985 ####[facility] [address] [place], [address] Absolute Neut 4.3 X10 3/uL Normal 2.0-7.7 [facility] Comment on above: Performed By: #### L 501.5200, L500.2500, L100.0100, L501.2300, L501.9985 ####[facility] [address] [place], [address] Basophils/100 WBC (Bld) 0.1 % Normal 0-1 [facility] Comment on above: Performed By: #### L 501.5200, L500.2500, L100.0100, L501.2300, L501.9985 ####[facility] [address] [place], [address] Eosinophils/100 WBC (Bld) 1.2 % Normal 0-5 [facility] Comment on above: Performed By: #### L 501.5200, L500.2500, L100.0100, L501.2300, L501.9985 ####[facility] [address] [place], [address] Erythrocyte distribution width (RBC) [Ratio] 13.0 % Normal 11.6-14.6 [facility] Comment on above: Performed By: #### L 501.5200, L500.2500, L100.0100, L501.2300, L501.9985 ####[facility] [address] [place], [address] Hematocrit (Bld) [Volume fraction] 34.7 % Low 37-47 [facility] Comment on above: Performed By: #### L 501.5200, L500.2500, L100.0100, L501.2300, L501.9985 ####[facility] [address] [place], [address] Hemoglobin (Bld) [Mass/Vol] 11.5 g/dL Low 12.0-15.0 [facility] Comment on above: Performed By: #### L 501.5200, L500.2500, L100.0100, L501.2300, L501.9985 ####[facility] [address] [place], [address] IG% 0.100 Normal 0.0-0.9 [facility] Comment on above: Result Comment: IG% - Immature Granulocytes (promyelocytes, myelocytes andmetamyelocytes) > 1% indicates that a LEFT SHIFT is Present. Performed By: #### L 501.5200, L500.2500, L100.0100, L501.2300, L501.9985 ####[facility] [address] [place], [address] Lymphocytes/100 WBC (Bld) 22.0 % Normal 19-41 [facility] Comment on above: Performed By: #### L 501.5200, L500.2500, L100.0100, L501.2300, L501.9985 ####[facility] [address] [place], [address] MCH (RBC) [Entitic mass] 32.8 pg High 27.0-32.0 [facility] Comment on above: Performed By: #### L 501.5200, L500.2500, L100.0100, L501.2300, L501.9985 ####[facility] [address] [place], [address] MCHC (RBC) [Mass/Vol] 33.1 g/dL Normal 32-36 [facility] Comment on above: Performed By: #### L 501.5200, L500.2500, L100.0100, L501.2300, L501.9985 ####[facility] [address] [place], [address] MCV (RBC) [Entitic vol] 98.9 fL Normal 81-99 [facility] Comment on above: Performed By: #### L 501.5200, L500.2500, L100.0100, L501.2300, L501.9985 ####[facility] [address] [place], [address] Monocytes/100 WBC (Bld) 13.9 % High 0-10 [facility] Comment on above: Performed By: #### L 501.5200, L500.2500, L100.0100, L501.2300, L501.9985 ####[facility] [address] [place], [address] Neutrophils/100 WBC (Bld) 62.7 % Normal 47-70 [facility] Comment on above: Performed By: #### L 501.5200, L500.2500, L100.0100, L501.2300, L501.9985 ####[facility] [address] [place], [address] Nucleated RBC (Bld) [#/Vol] 0 10*3/uL Normal 0-5 [facility] Comment on above: Performed By: #### L 501.5200, L500.2500, L100.0100, L501.2300, L501.9985 ####[facility] [address] [place], [address] Platelet mean volume (Bld) [Entitic vol] 11.5 fL Normal 6.2-12.0 [facility] Comment on above: Performed By: #### L 501.5200, L500.2500, L100.0100, L501.2300, L501.9985 ####[facility] [address] [place], [address] Platelets (Bld) [#/Vol] 141 10*3/uL Low 150-450 [facility] Comment on above: Performed By: #### L 501.5200, L500.2500, L100.0100, L501.2300, L501.9985 ####[facility] [address] [place], [address] RBC (Bld) [#/Vol] 3.51 10*6/uL Low 4.2-5.[address] [facility] Comment on above: Performed By: #### L 501.5200, L500.2500, L100.0100, L501.2300, L501.9985 ####[facility] [address] [place], [address] RDW SD 47.1 fl High 35.1-43.9 [facility] Comment on above: Performed By: #### L 501.5200, L500.2500, L100.0100, L501.2300, L501.9985 ####[facility] [address] [place], [address] WBC (Bld) [#/Vol] 6.8 10*3/uL Normal 4.4-11.0 [facility] Comment on above: Performed By: #### L 501.5200, L500.2500, L100.0100, L501.2300, L501.9985 ####[facility] [address] [place], [address] Consultation - Orthopedicson 11-16-2023 Consultation - Orthopedics Normal [facility] Echo Completeon 11-16-2023 Echo Complete Normal [facility] Hemoglobin A1con 11-16-2023 HbA1c (Bld) [Mass fraction] 6.3 % High 3.8-5.6 [facility] Comment on above: Result Comment: Norm al < 5.7 % Prediabetic 5.7 - 6.4 % Diabetic >or= 6.5 % Please note range changes. Performed By: #### L 501.5200, L500.2500, L100.0100, L501.2300, L501.9985 ####[facility] [address] [place], [address] M100.019on 11-16-2023 M100.019 Negative Normal [facility] Comment on above: Performed By: #### M 100.019, M100.638 ####[facility] [address] [place], [address] Magnesiumon 11-16-2023 Magnesium [Mass/Vol] 2.1 mg/dL Normal 1.6-2.6 [facility] Comment on above: Performed By: #### L 501.5200, L500.2500, L100.0100, L501.2300, L501.9985 ####[facility] [address] [place], [address] Phosphoruson 11-16-2023 Phosphate [Mass/Vol] 4.0 mg/dL Normal 2.5-4.9 [facility] Comment on above: Performed By: #### L 501.5200, L500.2500, L100.0100, L501.2300, L501.9985 ####[facility] [address] [place], [address] RESPIRATORY PANEL MOLECULARo n 11-16-2023 RP PANEL Normal [facility] Comment on above: Performed By: #### M 100.019, M100.638 ####[facility] [address] [place], [address] Upper Ext Joint Only(Routine )on 11-16-2023 Upper Ext Joint Only(Routine) Normal [facility] Venous Duplex US - Jovani Extre mon 11-16-2023 Venous Duplex US - Jovani Extrem Normal [facility] 12 Lead EKGon 11-15-2023 12 Lead EKG Normal [facility] BNP,B-Type NATRIURETIC PEPTI Lucina 11-15-2023 Natriuretic peptide B (Bld) [Mass/Vol] 6.6 pg/mL Normal 0-100 [facility] Comment on above: Performed By: #### L 503.6620 ####[facility] [address] [place], [address] Basic Metabolic Profile (BMP )on 11-15-2023 BUN/CRE 25.0 RATIO High 10-20 [facility] Comment on above: Order Comment: 1Y Performed By: #### L 500.2500, L300.3900, L501.5425, L100.0100, L501.5200 ####[facility] [address] [place], [address] CA,Total 8.7 mg/dL Normal 8.5-10.1 [facility] Comment on above: Order Comment: 1Y Performed By: #### L 500.2500, L300.3900, L501.5425, L100.0100, L501.5200 ####[facility] [address] [place], [address] Chloride [Moles/Vol] 109 mmol/L High 98-107 [facility] Comment on above: Order Comment: 1Y Performed By: #### L 500.2500, L300.3900, L501.5425, L100.0100, L501.5200 ####[facility] [address] [place], [address] CO2 [Moles/Vol] 21.0 mmol/L Normal 21.0-32.0 [facility] Comment on above: Order Comment: 1Y Performed By: #### L 500.2500, L300.3900, L501.5425, L100.0100, L501.5200 ####[facility] [address] [place], [address] Creatinine [Mass/Vol] 1.04 mg/dL High 0.55-1.02 [facility] Comment on above: Order Comment: 1Y Result Comment: The validity of the calculated GFR GFRAA in patients over70 years has not been determined. Clinical correlation isessential. Performed By: #### L 500.2500, L300.3900, L501.5425, L100.0100, L501.5200 ####[facility] [address] [place], [address] ECRCL 51.32 ml/min Normal [facility] Comment on above: Order Comment: 1Y Performed By: #### L 500.2500, L300.3900, L501.5425, L100.0100, L501.5200 ####[facility] [address] [place], [address] EST GFR - AA 67 mL/min Normal >60 [facility] Comment on above: Order Comment: 1Y Result Comment: Afri can Palauan GFR Calc Performed By: #### L 500.2500, L300.3900, L501.5425, L100.0100, L501.5200 ####[facility] [address] [place], [address] GAP 6 Normal 5-15 [facility] Comment on above: Order Comment: 1Y Performed By: #### L 500.2500, L300.3900, L501.5425, L100.0100, L501.5200 ####[facility] [address] [place], [address] GFR/1.73 sq M.predicted among non-blacks MDRD (S/P/Bld) [Vol rate/Area] 56 mL/min/{1.73_m2} Low >60 [facility] Comment on above: Order Comment: 1Y Result Comment: Non- GFR Calc Performed By: #### L 500.2500, L300.3900, L501.5425, L100.0100, L501.5200 ####[facility] [address] [place], [address] Glucose [Mass/Vol] 140 mg/dL High 74-106 [facility] Comment on above: Order Comment: 1Y Result Comment: Fast ing Glucose result greater than or equal to 126 mg/dLsuggests DIABETES MELLITUS per A.D.A. criteria. Performed By: #### L 500.2500, L300.3900, L501.5425, L100.0100, L501.5200 ####[facility] [address] [place], [address] Potassium [Moles/Vol] 4.5 mmol/L Normal 3.5-5.1 [facility] Comment on above: Order Comment: 1Y Performed By: #### L 500.2500, L300.3900, L501.5425, L100.0100, L501.5200 ####[facility] [address] [place], [address] Sodium [Moles/Vol] 136 mmol/L Normal 136-145 [facility] Comment on above: Order Comment: 1Y Performed By: #### L 500.2500, L300.3900, L501.5425, L100.0100, L501.5200 ####[facility] [address] [place], [address] Urea nitrogen [Mass/Vol] 26 mg/dL High 7-18 [facility] Comment on above: Order Comment: 1Y Performed By: #### L 500.2500, L300.3900, L501.5425, L100.0100, L501.5200 ####[facility] [address] [place], [address] Bedside Glucoseon 11-14-2023 FINGERSTICK GLU 124 mg/dL High 74-106 [facility] Comment on above: Result Comment: SONAM GEMENT OF PATIENT CARE PER NURSING PROTOCOL Performed By: #### L 501.080 ####[facility] [address] [place], [address] FINGERSTICK GLU 107 mg/dL High 74-106 [facility] Comment on above: Result Comment: SONAM GEMENT OF PATIENT CARE PER NURSING PROTOCOL Performed By: #### L 501.080 ####[facility] [address] [place], [address] CBC W/Diff, Automatedon 11-01 Absolute Lymph 1.34 X10 3/uL Normal 0.83-4.51 [facility] Comment on above: Performed By: #### L 500.2500, L300.3900, L501.5425, L100.0100, L501.5200 ####[facility] [address] [place], [address] Absolute Neut 6.7 X10 3/uL Normal 2.0-7.7 [facility] Comment on above: Performed By: #### L 500.2500, L300.3900, L501.5425, L100.0100, L501.5200 ####[facility] [address] [place], [address] Basophils/100 WBC (Bld) 0.2 % Normal 0-1 [facility] Comment on above: Performed By: #### L 500.2500, L300.3900, L501.5425, L100.0100, L501.5200 ####[facility] [address] [place], [address] Eosinophils/100 WBC (Bld) 0.8 % Normal 0-5 [facility] Comment on above: Performed By: #### L 500.2500, L300.3900, L501.5425, L100.0100, L501.5200 ####[facility] [address] [place], [address] Erythrocyte distribution width (RBC) [Ratio] 13.0 % Normal 11.6-14.6 [facility] Comment on above: Performed By: #### L 500.2500, L300.3900, L501.5425, L100.0100, L501.5200 ####[facility] [address] [place], [address] Hematocrit (Bld) [Volume fraction] 36.5 % Low 37-47 [facility] Comment on above: Performed By: #### L 500.2500, L300.3900, L501.5425, L100.0100, L501.5200 ####[facility] [address] [place], [address] Hemoglobin (Bld) [Mass/Vol] 12.0 g/dL Normal 12.0-15.0 [facility] Comment on above: Performed By: #### L 500.2500, L300.3900, L501.5425, L100.0100, L501.5200 ####[facility] [address] [place], [address] IG% 0.400 Normal 0.0-0.9 [facility] Comment on above: Result Comment: IG% - Immature Granulocytes (promyelocytes, myelocytes andmetamyelocytes) > 1% indicates that a LEFT SHIFT is Present. Performed By: #### L 500.2500, L300.3900, L501.5425, L100.0100, L501.5200 ####[facility] [address] [place], [address] Lymphocytes/100 WBC (Bld) 15.0 % Low 19-41 [facility] Comment on above: Performed By: #### L 500.2500, L300.3900, L501.5425, L100.0100, L501.5200 ####[facility] [address] [place], [address] MCH (RBC) [Entitic mass] 32.8 pg High 27.0-32.0 [facility] Comment on above: Performed By: #### L 500.2500, L300.3900, L501.5425, L100.0100, L501.5200 ####[facility] [address] [place], [address] MCHC (RBC) [Mass/Vol] 32.9 g/dL Normal 32-36 [facility] Comment on above: Performed By: #### L 500.2500, L300.3900, L501.5425, L100.0100, L501.5200 ####[facility] [address] [place], [address] MCV (RBC) [Entitic vol] 99.7 fL High 81-99 [facility] Comment on above: Performed By: #### L 500.2500, L300.3900, L501.5425, L100.0100, L501.5200 ####[facility] [address] [place], [address] Monocytes/100 WBC (Bld) 8.2 % Normal 0-10 [facility] Comment on above: Performed By: #### L 500.2500, L300.3900, L501.5425, L100.0100, L501.5200 ####[facility] [address] [place], [address] Neutrophils/100 WBC (Bld) 75.4 % High 47-70 [facility] Comment on above: Performed By: #### L 500.2500, L300.3900, L501.5425, L100.0100, L501.5200 ####[facility] [address] [place], [address] Nucleated RBC (Bld) [#/Vol] 0 10*3/uL Normal 0-5 [facility] Comment on above: Performed By: #### L 500.2500, L300.3900, L501.5425, L100.0100, L501.5200 ####[facility] [address] [place], [address] Platelet mean volume (Bld) [Entitic vol] 11.4 fL Normal 6.2-12.0 [facility] Comment on above: Performed By: #### L 500.2500, L300.3900, L501.5425, L100.0100, L501.5200 ####[facility] [address] [place], [address] Platelets (Bld) [#/Vol] 159 10*3/uL Normal 150-450 [facility] Comment on above: Performed By: #### L 500.2500, L300.3900, L501.5425, L100.0100, L501.5200 ####[facility] [address] [place], [address] RBC (Bld) [#/Vol] 3.66 10*6/uL Low 4.2-5.[address] [facility] Comment on above: Performed By: #### L 500.2500, L300.3900, L501.5425, L100.0100, L501.5200 ####[facility] [address] [place], [address] RDW SD 47.8 fl High 35.1-43.9 [facility] Comment on above: Performed By: #### L 500.2500, L300.3900, L501.5425, L100.0100, L501.5200 ####[facility] [address] [place], [address] WBC (Bld) [#/Vol] 8.9 10*3/uL Normal 4.4-11.0 [facility] Comment on above: Performed By: #### L 500.2500, L300.3900, L501.5425, L100.0100, L501.5200 ####[facility] [address] [place], [address] CTA Chest W/WO Contraston CTA Chest W/WO Contrast Normal [facility] D-Dimer Quantitative (DVT/PE )on 11-15-2023 D-DIMER QUANT 0.61 FEU/ug/m Invalid Interpretation Code 0.27-0.49 [facility] Comment on above: Result Comment: D-Di rodger ELEVATED (>0.49): Additional studies and clinicalassessments are indicated to conclude diagnosis of:Deep Vein Thrombosis (DVT) or Pulmonary Embolism (PE)CRITICAL VALUE VERIFIED. CALLED TO MADDIE FONSECA11/15/23 1421 Rhiannon Dominguez.RESULTS READ BACK BY SAME . Performed By: #### L 300.8000 ####[facility] [address] [place], [address] Emergency Department Summary on 11-15-2023 Emergency Department Summary Normal [facility] H AND P Exam - Hospitaliston 11-15-2023 H&P Exam - Hospitalist Normal [facility] L501.4020on 11-15-2023 TROPONIN-I HS 4 pg/mL Normal 3.0-54.0 [facility] Comment on above: Order Comment: Comme nts: SPECIMEN #3'TROP' Serial specimen #1, #2 or #3: 3 Result Comment: Plea se Note: New Test Units and Gender Specific Reference Ranges. For more information see Policy Stat Procedure [place] High Sensitivity Troponin (TNIH) and attachments. Performed By: #### L 501.4020 ####[facility] [address] [place], [address] TROPONIN-I HS 4 pg/mL Normal 3.0-54.0 [facility] Comment on above: Result Comment: Plea se Note: New Test Units and Gender Specific Reference Ranges. For more information see Policy Stat Procedure [place] High Sensitivity Troponin (TNIH) and attachments. Performed By: #### L 501.4020 ####[facility] [address] [place], [address] L501.5425on 11-15-2023 TROPONIN-I HS 4 pg/mL Normal 3.0-54.0 [facility] Comment on above: Order Comment: 1Y Result Comment: Plea Note: New Test Units and Gender Specific Reference Ranges. For more information see Policy Stat Procedure [place] High Sensitivity Troponin (TNIH) and attachments. Performed By: #### L 500.2500, L300.3900, L501.5425, L100.0100, L501.5200 ####[facility] [address] [place], [address] Magnesiumon 11-15-2023 Magnesium [Mass/Vol] 1.9 mg/dL Normal 1.6-2.6 [facility] Comment on above: Order Comment: 1Y Performed By: #### L 500.2500, L300.3900, L501.5425, L100.0100, L501.5200 ####[facility] [address] [place], [address] Partial Thromboplast Timeon 11-15-2023 aPTT Coag (Bld) [Time] 26.8 s Normal 24.1-36.2 [facility] Comment on above: Order Comment: RED W. PREVIOUS SPECIMEN REJECTED DUE TOQNS. 11/15/23 1112 Rhiannon Dominguez. Performed By: #### L 300.3900, L300.4310 ####[facility] [address] [place], [address] Prothrombin Time w/INRon INR Coag (PPP) [Relative time] 1.1 {INR} Normal [facility] Comment on above: Order Comment: RED W. PREVIOUS SPECIMEN REJECTED DUE TOQNS. 11/15/231111 Rhiannon Dominguez. Performed By: #### L 300.3900, L300.4310 ####[facility] [address] [place], [address] PT Coag (PPP) [Time] 14.1 s Normal 11.7-14.9 [facility] Comment on above: Order Comment: APRIL W. PREVIOUS SPECIMEN REJECTED DUE TOQNS. 11/15/23 1112 Rhiannon Dominguez. Performed By: #### L 300.3900, L300.4310 ####[facility] [address] [place], [address] INR Normal [facility] Comment on above: Result Comment: This specimen has been REJECTED due to Laboratory criteria:Quantity Not Sufficient.Yemi OBO has been notified of need of recollection.11/15/23 1111 Rhiannon Dominguez Performed By: #### L 500.2500, L300.3900, L501.5425, L100.0100, L501.5200 ####[facility] [address] [place], [address] PROTIME Normal 11.7-14.9 [facility] Comment on above: Result Comment: This specimen has been REJECTED due to Laboratory criteria:Quantity Not Sufficient.Yemi BOO has been notified of need of recollection.11/15/23 1111 Rhiannon Dominguez Performed By: #### L 500.2500, L300.3900, L501.5425, L100.0100, L501.5200 ####[facility] [address] [place], [address] Cardiology Visit Reporton Cardiology Visit Report Normal [facility] Absolute lymphocyte countOrd ered By: Pepe Ruiz on 09-07-2023 Lymphocytes Auto (Unsp spec) [#/Vol] 1.27 10*3/uL 0.83-4.51 [facility] Automated lymphocyte count a s percentage of total leukocytesOrdered By: Pepe Ruiz on 09-07-2023 Lymphocytes/100 WBC Auto (Unsp spec) 31.9 % 19-41 [facility] Basophil percentageOrdered B y: Pepe Ruiz on 09-07-2023 Basophils/100 WBC (Bld) 0.3 % 0-1 [facility] Eosinophils/100 WBC (Bld) 6.5 % 0-5 [facility] Hemoglobin (Bld) [Mass/Vol] 10.8 g/dL 12.0-15.0 [facility] Monocytes/100 WBC (Bld) 9.3 % 0-10 [facility] Neutrophils (Bld) [#/Vol] 2.0 10*3/uL 2.0-7.7 [facility] Neutrophils/100 WBC (Bld) 51.2 % 47-70 [facility] WBC (Bld) [#/Vol] 4.0 10*3/uL 4.4-11.0 [facility] Ammonia (P) [Moles/Vol] 67.0 umol/L 11-32 [facility] Basophil percentage 17.0 IU/mL <[address] [facility] Bilirubin [Mass/Vol] 0.30 mg/dL 0.20-1.00 [facility] Comment on above: For patients on eltr ombopag therapy, use of Dimension [place] TBIL is not recommended. Chloride [Moles/Vol] 111 mmol/L 98-107 [facility] Glucose [Mass/Vol] 139 mg/dL 74-106 [facility] Comment on above: Fasting Glucose resu lt greater than or equal to 126 mg/dL suggests DIABETES MELLITUS per A.D.A. criteria. Potassium [Moles/Vol] 4.0 mmol/L 3.5-5.1 [facility] Protein [Mass/Vol] 6.6 g/dL 6.4-8.2 [facility] Sodium [Moles/Vol] 141 mmol/L 136-145 [facility] Determination of erythrocyte mean corpuscular volume (MCV)Ordered By: Pepe Ruiz on 09-07-2023 MCV (RBC) [Entitic vol] 100.0 fL 81-99 [facility] Erythrocyte distribution wid th ratioOrdered By: Pepe Ruiz on 09-07-2023 Erythrocyte distribution width (RBC) [Ratio] 14.2 % 11.6-14.6 [facility] Erythrocyte distribution wid th standard deviationOrdered By: Pepe Ruiz on 09-07-2023 Erythrocyte distribution width (RBC) [Entitic vol] 52.2 fL 35.1-43.9 [facility] Erythrocyte sedimentation ra teOrdered By: Pepe Ruiz on 09-07-2023 ESR (Bld) [Velocity] 2 mm/h 0-30 [facility] Hematocrit Auto (Bld) [Volum e fraction]Ordered By: Pepeamol Ruiz on 09-07-2023 Hematocrit (Bld) [Volume fraction] 33.0 % 37-47 [facility] Immature granulocytes/100 WB C Auto (Bld)Ordered By: Pepe [facility] on 09-07-2023 Immature granulocytes/100 WBC (Bld) 0.800 % 0.0-0.9 [facility] Comment on above: IG% - Immature Granu locytes (promyelocytes, myelocytes and metamyelocytes) > 1% indicates that a LEFT SHIFT is Present. Laboratory - Chemistry and C hemistry - challengeOrdered By: Pepeamol Ruiz on 09-07-2023 Albumin/Globulin [Mass ratio] 0.7 {ratio} 0.9-2.4 [facility] ALP [Catalytic activity/Vol] 93 U/L 45-117 [facility] ALT [Catalytic activity/Vol] 21 U/L 13-56 [facility] CO2 [Moles/Vol] 25.0 mmol/L 21.0-32.0 [facility] Cobalamin (Vitamin B12) [Mass/Vol] 366 pg/mL 211-911 [facility] Globulin (S) [Mass/Vol] 3.8 g/dL 2.2-4.2 [facility] Urea nitrogen/Creatinine [Mass ratio] 21.4 mg/mg 10-20 [facility] Laboratory - Hematology and Cell countsOrdered By: Pepeamol Ruiz on 09-07-2023 MCH (RBC) [Entitic mass] 32.7 pg 27.0-32.0 [facility] MCHC (RBC) [Mass/Vol] 32.7 g/dL 32-36 [facility] Nucleated RBC/100 WBC (Bld) [Ratio] 0 % 0-5 [facility] Platelet mean volume (Bld) [Entitic vol] 12.0 fL 6.2-12.0 [facility] Platelets (Bld) [#/Vol] 186 10*3/uL 150-450 [facility] No Panel InformationOrdered By: Pepe Ruiz on 09-07-2023 Anti-Nuclear Antibody Screen Negative Negative [facility] Comment on above: Performed at: - [employer] [place] [id number] Director: Lobo Das PhD, Phone: [phone] C-Reactive Protein Extended Range < 2.90 mg/L 0.0-3.0 [facility] Comment on above: C-Reactive Protein ( CRP) provides useful information for thediagnosis, therapy and monitoring of inflammatory processesand associated diseases. For the evaluation of Relative Riskfor Cardiovascular Disease, a High Sensitivity CRP (HSCRP)should be ordered. Estimated GFR (MDRD) Amer 76 mL/min >60 [facility] Comment on above: GFR Calc Estimated GFR (MDRD) Non-Af Amer 63 mL/min >60 [facility] Comment on above: Non- GFR Calc Folate 9.10 ng/mL 3.1-55.4 [facility] Hepatitis B Surface Antigen Non-Reactive Nonreactive [facility] Hepatitis C Antibody Non-Reactive Nonreactive [facility] Comment on above: Non Reactive: < 0.8 Equivocal: >/= 0.8 to < 1.0 Reactive: >/= 1.0The CDC requires that a reactive/equivocal HCV antibody result be sent out for confirmation. HCV Quant by PCR testing. Valproic Acid (Depakene) Level 103 ug/mL 50-100 [facility] RBC Auto (Bld) [#/Vol]Ordere d By: Pepe Ruiz on 09-07-2023 RBC (Bld) [#/Vol] 3.30 10*6/uL 4.2-5.[address] [facility] Serum cyclic citrullinated p eptide IgG antibody assay (units/volume)Ordered By: Pepe Ruiz on 09-07-2023 Cyclic citrullinated peptide IgG Qn 7 units 0-19 [facility] Comment on above: Negative <20 Weak po sitive 20 - 39 Moderate positive 40 - 59 Strong positive >59Performed at: [facility] [place] [id number] [place], [place] [id number] Director: Adamaris Shi MD, Phone: [phone] at: [facility] [employer] [place] [id number] [place], [place] [id number] Director: Lobo Das PhD, Phone: [phone] Serum hepatitis B virus surf shelly antibody IgG detectionOrdered By: Pepe Ruiz on 09-07-2023 HBV surface IgG Ql (S) Non-Reactive [facility] Comment on above: Non Reactive: Incons istent with immunity less than <10 mIU/mL Reactive: Consistent with immunity greater than or equal to 10 mIU/mL Serum or plasma calcium loretta urement (mass/volume)Ordered By: Pepe Ruiz on 09-07-2023 Calcium [Mass/Vol] 8.4 mg/dL 8.5-10.1 [facility] Serum or plasma creatinine m easurement (mass/volume)Ordered By: Pepe Ruiz on 09-07-2023 Creatinine [Mass/Vol] 0.94 mg/dL 0.55-1.02 [facility] Comment on above: The validity of the calculated GFR & GFRAA in patients over 70 years has not been determined. Clinical correlation is essential. Serum or plasma thiamine kirill surement (mass/volume)Ordered By: Pepe Ruiz on 09-07-2023 Thiamine [Mass/Vol] 109.8 nmol/L 66.5-200.0 [facility] Serum or plasma thyroid stim ulating hormone (TSH) measurement (units/volume)Ordered By: Pepe Ruiz on 09-07-2023 TSH Qn 2.91 uIU/mL 0.358-3.74 [facility] Serum or plasma urea nitroge n measurement (mass/volume)Ordered By: Pepe Ruiz on 09-07-2023 Urea nitrogen [Mass/Vol] 20 mg/dL 7-18 [facility] Thin prep Papanicolaou smear with manual screeningOrdered By: Pepe Ruiz on 09-07-2023 Thin prep Papanicolaou smear with manual screening 2.8 g/dL 3.2-5.0 [facility] Thin prep Papanicolaou smear with manual screening 21 U/L 15-37 [facility] Thin prep Papanicolaou smear with manual screening 5 5-15 [facility] Basophil percentageOrdered B y: Vadim Mckinney on 08-14-2023 Basophil percentage < 1.0 mg/dL 0.55-1.02 [facility] No Panel InformationOrdered By: Vadim Friend on 08-14-2023 Bedside Estimated GFR (eGFR) > 60.0000 mL/min >60 [facility] Absolute lymphocyte countOrd ered By: Mayda Garcia on 06-17-2023 Lymphocytes Auto (Unsp spec) [#/Vol] 0.86 10*3/uL 0.83-4.51 [facility] Automated lymphocyte count a s percentage of total leukocytesOrdered By: Mayda Garcia on 06-17-2023 Lymphocytes/100 WBC Auto (Unsp spec) 27.2 % 19-41 [facility] Basophil percentageOrdered B y: Mayda Garcia on 06-17-2023 Basophils/100 WBC (Bld) 0.6 % 0-1 [facility] Chloride [Moles/Vol] 112 mmol/L 98-107 [facility] Eosinophils/100 WBC (Bld) 2.8 % 0-5 [facility] Glucose [Mass/Vol] 138 mg/dL 74-106 [facility] Comment on above: Fasting Glucose resu lt greater than or equal to 126 mg/dL suggests DIABETES MELLITUS per A.D.A. criteria. Hemoglobin (Bld) [Mass/Vol] 12.2 g/dL 12.0-15.0 [facility] Monocytes/100 WBC (Bld) 6.0 % 0-10 [facility] Neutrophils (Bld) [#/Vol] 2.0 10*3/uL 2.0-7.7 [facility] Neutrophils/100 WBC (Bld) 63.1 % 47-70 [facility] Potassium [Moles/Vol] 4.1 mmol/L 3.5-5.1 [facility] Sodium [Moles/Vol] 142 mmol/L 136-145 [facility] WBC (Bld) [#/Vol] 3.2 10*3/uL 4.4-11.0 [facility] Determination of erythrocyte mean corpuscular volume (MCV)Ordered By: Mayda Garcia on 06-17-2023 MCV (RBC) [Entitic vol] 99.0 fL 81-99 [facility] Erythrocyte distribution wid th ratioOrdered By: [facility] Ibanezch[facility]ana on 06-17-2023 Erythrocyte distribution width (RBC) [Ratio] 14.3 % 11.6-14.6 [facility] Erythrocyte distribution wid th standard deviationOrdered By: [facility] Ibanezchandana on 06-17-2023 Erythrocyte distribution width (RBC) [Entitic vol] 52.5 fL 35.1-43.9 [facility] Hematocrit Auto (Bld) [Volum e fraction]Ordered By: [facility] Ibanezchandana on 06-17-2023 Hematocrit (Bld) [Volume fraction] 38.8 % 37-47 [facility] Immature granulocytes/100 WB C Auto (Bld)Ordered By: [facility] Suleimanchandana on 06-17-2023 Immature granulocytes/100 WBC (Bld) 0.300 % 0.0-0.9 [facility] Comment on above: IG% - Immature Granu locytes (promyelocytes, myelocytes and metamyelocytes) > 1% indicates that a LEFT SHIFT is Present. Laboratory - Chemistry and C hemistry - challengeOrdered By: Mayda Garcia on 06-17-2023 CO2 [Moles/Vol] 26.0 mmol/L 21.0-32.0 [facility] Urea nitrogen/Creatinine [Mass ratio] 27.6 mg/mg 10-20 [facility] Laboratory - Hematology and Cell countsOrdered By: michellelulingconsuelo Ibanezchandana on 06-17-2023 MCH (RBC) [Entitic mass] 31.1 pg 27.0-32.0 [facility] MCHC (RBC) [Mass/Vol] 31.4 g/dL 32-36 [facility] Nucleated RBC/100 WBC (Bld) [Ratio] 0 % 0-5 [facility] Platelet mean volume (Bld) [Entitic vol] 11.2 fL 6.2-12.0 [facility] Platelets (Bld) [#/Vol] 184 10*3/uL 150-450 [facility] No Panel InformationOrdered By: Mayda Garcia on 06-17-2023 Estimated GFR (MDRD) Amer 87 mL/min >60 [facility] Comment on above: GFR Calc Estimated GFR (MDRD) Non-Af Amer 72 mL/min >60 [facility] Comment on above: Non- GFR Calc RBC Auto (Bld) [#/Vol]Ordere d By: Mayda Garcia on 06-17-2023 RBC (Bld) [#/Vol] 3.92 10*6/uL 4.2-5.[address] [facility] Serum or plasma calcium loretta urement (mass/volume)Ordered By: Mayda Garcia on 06-17-2023 Calcium [Mass/Vol] 8.5 mg/dL 8.5-10.1 [facility] Serum or plasma creatinine m easurement (mass/volume)Ordered By: Mayda Garcia on 06-17-2023 Creatinine [Mass/Vol] 0.83 mg/dL 0.55-1.02 [facility] Comment on above: The validity of the calculated GFR & GFRAA in patients over 70 years has not been determined. Clinical correlation is essential. Serum or plasma urea nitroge n measurement (mass/volume)Ordered By: Mayda Garcia on 06-17-2023 Urea nitrogen [Mass/Vol] 23 mg/dL 11-18 [facility] Thin prep Papanicolaou smear with manual screeningOrdered By: Mayda Garcia on 06-17-2023 Thin prep Papanicolaou smear with manual screening 4 09-15 [facility] Whole blood hemoglobin A1c/t otal hemoglobin ratio (mass fraction)Ordered By: Mayda Garcia on 06-17-2023 HbA1c (Bld) [Mass fraction] 6.3 % 3.8-5.6 [facility] Comment on above: Normal < 5.7 % Predi abetic 5.7 - 6.4 % Diabetic >or= 6.5 % Please note range changes. Absolute lymphocyte countOrd ered By: Carlos Bravo on 02-18-2023 Lymphocytes Auto (Unsp spec) [#/Vol] 1.35 10*3/uL 0.83-4.51 [facility] Basophil percentageOrdered B y: Pepe Ruiz on 02-18-2023 Ammonia (P) [Moles/Vol] 42.0 umol/L 11-32 [facility] Basophil percentage 42.0 umol/L 11-32 [facility] Basophil percentageOrdered B y: Carlos Bravo on 02-18-2023 Basophil percentage 96 mg/dL 74-[address] [facility] Basophil percentage 7.4 g/dL 6.4-8.[address] [facility] Basophil percentage 0.30 mg/dL 0.20-1.[address] [facility] Basophil percentage 141 mmol/L 136-[address] [facility] Basophil percentage 3.6 mmol/L 3.5-5.[address] [facility] Basophil percentage 108 mmol/L 98-[address] [facility] Basophils (Bld) [#/Vol] 5.6 10*3/uL 4.4-11.0 [facility] Basophils (Bld) [#/Vol] 3.4 10*3/uL 2.0-7.7 [facility] Basophils/100 WBC (Bld) 60.8 % 47-70 [facility] Basophils/100 WBC (Bld) 6.3 % 0-5 [facility] Basophils/100 WBC (Bld) 0.4 % 0-1 [facility] Bilirubin [Mass/Vol] 0.30 mg/dL 0.20-1.00 [facility] Comment on above: For patients on eltr ombopag therapy, use of Dimension [place] TBIL is not recommended. Chloride [Moles/Vol] 108 mmol/L 98-107 [facility] Eosinophils/100 WBC (Bld) 6.3 % 0-5 [facility] Glucose [Mass/Vol] 96 mg/dL 74-106 [facility] Neutrophils (Bld) [#/Vol] 3.4 10*3/uL 2.0-7.7 [facility] Neutrophils/100 WBC (Bld) 60.8 % 47-70 [facility] Potassium [Moles/Vol] 3.6 mmol/L 3.5-5.1 [facility] Protein [Mass/Vol] 7.4 g/dL 6.4-8.2 [facility] Sodium [Moles/Vol] 141 mmol/L 136-145 [facility] WBC (Bld) [#/Vol] 5.6 10*3/uL 4.4-11.0 [facility] Blood erythrocytes count (nu mber/volume)Ordered By: Carlos Bravo on 02-18-2023 RBC (Bld) [#/Vol] 3.67 10*6/uL 4.2-5.[address] [facility] Blood hemoglobin measurement (mass/volume)Ordered By: Carlos Bravo on 02-18-2023 Hemoglobin (Bld) [Mass/Vol] 11.2 g/dL 12.0-15.0 [facility] Blood lymphocytes/100 leukoc ytesOrdered By: Carlos Bravo on 02-18-2023 Lymphocytes/100 WBC (Bld) 24.1 % 19-41 [facility] Blood monocytes/100 leukocyt esOrdered By: Carlos Bravo on 02-18-2023 Monocytes/100 WBC (Bld) 8.2 % 0-10 [facility] Blood platelet mean volumeOr dered By: Carlos Bravo on 02-18-2023 Platelet mean volume (Bld) [Entitic vol] 10.9 fL 6.2-12.0 [facility] Determination of erythrocyte mean corpuscular volume (MCV)Ordered By: Carlos Bravo on 02-18-2023 MCV (RBC) [Entitic vol] 96.7 fL 81-99 [facility] Hematocrit Auto (Bld) [Volum e fraction]Ordered By: Carlos Bravo on 02-18-2023 Hematocrit (Bld) [Volume fraction] 35.5 % 37-47 [facility] Laboratory - Chemistry and C hemistry - challengeOrdered By: Carlos Bravo on 02-18-2023 ALP [Catalytic activity/Vol] 79 U/L 45-117 [facility] ALT [Catalytic activity/Vol] 13 U/L 13-56 [facility] CO2 [Moles/Vol] 24.0 mmol/L 21.0-32.0 [facility] Free T4 [Mass/Vol] 1.01 ng/dL 0.76-1.46 [facility] Globulin (S) [Mass/Vol] 4.8 g/dL 2.2-4.2 [facility] Natriuretic peptide B (Bld) [Mass/Vol] 26.8 pg/mL 0-100 [facility] Urea nitrogen/Creatinine [Mass ratio] 17.6 mg/mg 10- [facility] Laboratory - Hematology and Cell countsOrdered By: Carlos Bravo on 02-18-2023 Erythrocyte distribution width (RBC) [Entitic vol] 52.1 fL 35.1-43.9 [facility] Erythrocyte distribution width (RBC) [Ratio] 14.6 % 11.6-14.6 [facility] Immature granulocytes/100 WBC (Bld) 0.200 % 0.0-0.9 [facility] Comment on above: IG% - Immature Granu locytes (promyelocytes, myelocytes and metamyelocytes) > 1% indicates that a LEFT SHIFT is Present. MCH (RBC) [Entitic mass] 30.5 pg 27.0-32.0 [facility] Nucleated RBC/100 WBC (Bld) [Ratio] 0 % 0-5 [facility] MCHC Auto (RBC) [Mass/Vol]Or dered By: Carlos Bravo on 02-18-2023 MCHC (RBC) [Mass/Vol] 31.5 g/dL 32-36 [facility] No Panel InformationOrdered By: Carlos Bravo on 02-18-2023 Estimated GFR (MDRD) Amer 92 mL/min >60 [facility] Comment on above: GFR Calc Estimated GFR (MDRD) Non-Af Amer 76 mL/min >60 [facility] Comment on above: Non- GFR Calc Thyroid Stimulating Hormone (TSH) 3.45 uIU/mL 0.358-3.74 [facility] 30.5 pg 27.0-32.0 [facility] 14.6 % 11.6-14.6 [facility] 52.1 fl 35.1-43.9 [facility] 0.200 % 0.0-0.9 [facility] 0 % 0-5 [facility] 76 mL/min >60 [facility] 92 mL/min >60 [facility] 17.6 RATIO 10- [facility] 4.8 g/dL 2.2-4.2 [facility] 79 U/L 45-117 [facility] 13 U/L 13-56 [facility] 24.0 mmol/L 21.0-32.0 [facility] 3.45 uIU/mL 0.358-3.74 [facility] 26.8 pg/mL 0-100 [facility] 1.01 ng/dL 0.76-1.46 [facility] No Panel InformationOrdered By: Pepe Ruiz on 02-18-2023 Valproic Acid (Depakene) Level 103 ug/mL 50-100 [facility] Whole Blood Vitamin B1 Level 106.4 nmol/L 66.5-200.0 [facility] Comment on above: Performed at: [employer] [address] [id number] Director: Adamaris Shi MD, Phone: [phone] 103 ug/mL 50-100 [facility] 106.4 nmol/L 66.5-200.0 [facility] Platelets bldOrdered By: Aj Bravo on 02-18-2023 Platelets (Bld) [#/Vol] 251 10*3/uL 150-450 [facility] Serum or plasma albumin loretta urement (mass/volume)Ordered By: Carlos Bravo on 02-18-2023 Albumin [Mass/Vol] 2.6 g/dL 3.2-5.0 [facility] Serum or plasma albumin/glob ulin mass ratioOrdered By: Carlos Bravo on 02-18-2023 Albumin/Globulin [Mass ratio] 0.5 {ratio} 0.9-2.4 [facility] Serum or plasma calcium loretta urement (mass/volume)Ordered By: Carlos Bravo on 02-18-2023 Calcium [Mass/Vol] 8.7 mg/dL 8.5-10.1 [facility] Serum or plasma creatinine m easurement (mass/volume)Ordered By: Carlos Bravo on 02-18-2023 Creatinine [Mass/Vol] 0.80 mg/dL 0.55-1.02 [facility] Comment on above: The validity of the calculated GFR & GFRAA in patients over 70 years has not been determined. Clinical correlation is essential. Serum or plasma urea nitroge n measurement (mass/volume)Ordered By: Carlos Bravo on 02-18-2023 Urea nitrogen [Mass/Vol] 14 mg/dL 11-18 [facility] Thin prep Papanicolaou smear with manual screeningOrdered By: Carlos Bravo on 02-18-2023 Thin prep Papanicolaou smear with manual screening 11 U/L 15-37 [facility] Thin prep Papanicolaou smear with manual screening 9 5-15 [facility] Iron measurement (mass/mass) Ordered By: Mayda Garcia on 02-04-2023 Iron (Unsp spec) [Mass/Mass] 41 ug/dL 50-170 [facility] Laboratory - Chemistry and C hemistry - challengeOrdered By: Mayda Garcia on 02-04-2023 Cobalamin (Vitamin B12) [Mass/Vol] 262 pg/mL - [facility] No Panel InformationOrdered By: Mayda Garcia on 02-04-2023 Total Iron Binding Capacity 217 ug/dL 250-450 [facility] 262 pg/mL [facility] 217 ug/dL 250-450 [facility] Serum or plasma ferritin kirill surement (mass/volume)Ordered By: Mayda Garcia on 02-04-2023 Ferritin [Mass/Vol] 364 ng/mL 8-[address] [facility] Serum or plasma folate measu rement (mass/volume)Ordered By: Mayda Garcia on 02-04-2023 Folate [Mass/Vol] 17.40 ng/mL 3.1-55.4 [facility] Absolute lymphocyte countOrd ered By: Robbin Carlos on 01-26-2023 Lymphocytes Auto (Unsp spec) [#/Vol] 1.96 10*3/uL 0.83-4.51 [facility] Basophil percentageOrdered B y: Robbin Carlos on 01-26-2023 Basophil percentage 85 mg/dL 74-[address] [facility] Basophil percentage 140 mmol/L 136-[address] [facility] Basophil percentage 3.9 mmol/L 3.5-5.[address] [facility] Basophil percentage 108 mmol/L 98-[address] [facility] Basophils (Bld) [#/Vol] 4.8 10*3/uL 4.4-11.0 [facility] Basophils (Bld) [#/Vol] 2.2 10*3/uL 2.0-7.7 [facility] Basophils/100 WBC (Bld) 0.6 % 0-1 [facility] Basophils/100 WBC (Bld) 46.3 % 47-70 [facility] Basophils/100 WBC (Bld) 3.3 % 0-5 [facility] Chloride [Moles/Vol] 108 mmol/L 98-107 [facility] Eosinophils/100 WBC (Bld) 3.3 % 0-5 [facility] Glucose [Mass/Vol] 85 mg/dL 74-106 [facility] Neutrophils (Bld) [#/Vol] 2.2 10*3/uL 2.0-7.7 [facility] Neutrophils/100 WBC (Bld) 46.3 % 47-70 [facility] Potassium [Moles/Vol] 3.9 mmol/L 3.5-5.1 [facility] Sodium [Moles/Vol] 140 mmol/L 136-145 [facility] WBC (Bld) [#/Vol] 4.8 10*3/uL 4.4-11.0 [facility] Blood erythrocytes count (nu mber/volume)Ordered By: Robbin Carlos on 01-26-2023 RBC (Bld) [#/Vol] 3.21 10*6/uL 4.2-5.[address] [facility] Blood hemoglobin measurement (mass/volume)Ordered By: Robbin Carlos on 01-26-2023 Hemoglobin (Bld) [Mass/Vol] 9.9 g/dL 12.0-15.0 [facility] Blood lymphocytes/100 leukoc ytesOrdered By: Robbin Carlos on 01-26-2023 Lymphocytes/100 WBC (Bld) 41.0 % 19-41 [facility] Blood monocytes/100 leukocyt esOrdered By: Robbin Carlos on 01-26-2023 Monocytes/100 WBC (Bld) 8.4 % 0-10 [facility] Blood platelet mean volumeOr dered By: Robbin Carlos on 01-26-2023 Platelet mean volume (Bld) [Entitic vol] 11.4 fL 6.2-12.0 [facility] Determination of erythrocyte mean corpuscular volume (MCV)Ordered By: Robbin Carlos on 01-26-2023 MCV (RBC) [Entitic vol] 96.3 fL 81-99 [facility] Hematocrit Auto (Bld) [Volum e fraction]Ordered By: Robbin Carlos on 01-26-2023 Hematocrit (Bld) [Volume fraction] 30.9 % 37-47 [facility] - Chemistry and C hemistry - challengeOrdered By: Robbin Carlos on 01-26-2023 CO2 [Moles/Vol] 27.0 mmol/L 21.0-32.0 [facility] Urea nitrogen/Creatinine [Mass ratio] 17.4 mg/mg 10-20 [facility] - Hematology and Cell countsOrdered By: Robbin Carlos on 01-26-2023 Erythrocyte distribution width (RBC) [Entitic vol] 51.8 fL 35.1-43.9 [facility] Erythrocyte distribution width (RBC) [Ratio] 14.6 % 11.6-14.6 [facility] Immature granulocytes/100 WBC (Bld) 0.400 % 0.0-0.9 [facility] Comment on above: IG% - Immature Granu locytes (promyelocytes, myelocytes and metamyelocytes) > 1% indicates that a LEFT SHIFT is Present. MCH (RBC) [Entitic mass] 30.8 pg 27.0-32.0 [facility] Nucleated RBC/100 WBC (Bld) [Ratio] 0 % 0-5 [facility] MCHC Auto (RBC) [Mass/Vol]Or dered By: Robbin Carlos on 01-26-2023 MCHC (RBC) [Mass/Vol] 32.0 g/dL 32-36 [facility] No Panel InformationOrdered By: Robbin Carlos on 01-26-2023 Estimated Creatinine Clearance Calc 41.40 ml/min [facility] Estimated GFR (MDRD) Amer 99 mL/min >60 [facility] Comment on above: GFR Calc Estimated GFR (MDRD) Non-Af Amer 82 mL/min >60 [facility] Comment on above: Non- GFR Calc 30.8 pg 27.0-32.0 [facility] 14.6 % 11.6-14.6 [facility] 51.8 fl 35.1-43.9 [facility] 0.400 % 0.0-0.9 [facility] 0 % 0-5 [facility] 82 mL/min >60 [facility] 99 mL/min >60 [facility] 41.40 ml/min [facility] 17.4 RATIO 10-20 [facility] 27.0 mmol/L 21.0-32.0 [facility] Platelets bldOrdered By: Robbin Carlos on 01-26-2023 Platelets (Bld) [#/Vol] 149 10*3/uL 150-450 [facility] Serum or plasma calcium loretta urement (mass/volume)Ordered By: Robbin Carlos on 01-26-2023 Calcium [Mass/Vol] 8.5 mg/dL 8.5-10.1 [facility] Serum or plasma creatinine m easurement (mass/volume)Ordered By: Robbin Carlos on 01-26-2023 Creatinine [Mass/Vol] 0.75 mg/dL 0.55-1.02 [facility] Comment on above: The validity of the calculated GFR & GFRAA in patients over 70 years has not been determined. Clinical correlation is essential. Serum or plasma urea nitroge n measurement (mass/volume)Ordered By: Robbin Carlos on 01-26-2023 Urea nitrogen [Mass/Vol] 13 mg/dL 7-18 [facility] Thin prep Papanicolaou smear with manual screeningOrdered By: Robbin Carlos on 01-26-2023 Thin prep Papanicolaou smear with manual screening 5 5-15 [facility] Basophil percentageOrdered B y: Robbin Carlos on 01-22-2023 Basophil percentage 6.4 g/dL 6.4-8.[address] [facility] Basophil percentage 0.20 mg/dL 0.20-1.[address] [facility] Bilirubin [Mass/Vol] 0.20 mg/dL 0.20-1.00 [facility] Comment on above: For patients on eltr ombopag therapy, use of Dimension [place] TBIL is not recommended. Protein [Mass/Vol] 6.4 g/dL 6.4-8.2 [facility] Laboratory - Chemistry and C hemistry - challengeOrdered By: Robbin Carlos on 01-22-2023 ALP [Catalytic activity/Vol] 102 U/L 45-117 [facility] ALT [Catalytic activity/Vol] 28 U/L - [facility] Globulin (S) [Mass/Vol] 3.9 g/dL 2.2-4.2 [facility] No Panel InformationOrdered By: Robbin Carlos on 01-22-2023 3.9 g/dL 2.2-4.2 [facility] 102 U/L 45-117 [facility] 28 U/L [facility] Serum or plasma albumin loretta urement (mass/volume)Ordered By: Robbin Carlos on 01-22-2023 Albumin [Mass/Vol] 2.5 g/dL 3.2-5.0 [facility] Serum or plasma albumin/glob ulin mass ratioOrdered By: Robbin Carlos on 01-22-2023 Albumin/Globulin [Mass ratio] 0.6 {ratio} 0.9-2.4 [facility] Thin prep Papanicolaou smear with manual screeningOrdered By: Robbin Carlos on 01-22-2023 Thin prep Papanicolaou smear with manual screening 26 U/L 15-37 [facility] Whole blood hemoglobin A1c/t otal hemoglobin ratio (mass fraction)Ordered By: Robbin Carlos on 01-22-2023 HbA1c (Bld) [Mass fraction] 6.4 % 3.8-5.6 [facility] Comment on above: Normal < 5.7 % Predi abetic 5.7 - 6.4 % Diabetic >or= 6.5 % Please note range changes. SARS-CoV-2 (COVID-19) Ag IA. rapid Ql (Resp)Ordered By: Robbin Carlos on 01-21-2023 COVID-19 virus antigen assay SARS-CoV-2 (COVID 19) [facility] SARS-CoV-2 Antigen (Rapid) SARS-CoV-2 (COVID 19) [facility] COVID-19 virus antigen assay SARS-CoV-2 (COVID 19) [facility] Glucose Glucometer (BldC) [M ass/Vol]Ordered By: Robbin Carlos on 01-18-2023 Glucose [Mass/Vol] 72 mg/dL 74-106 [facility] Comment on above: MANAGEMENT OF PATIEN T CARE PER NURSING PROTOCOL POCT glucose meteron 023 Glucose [Mass/Vol] 98 mg/dL 70 - 100 mg/dL [facility] Interpretation and review of laboratory results Normal [facility] Performed by: [facility], [address] [place] [address] CLIA ID: [id number] [facility] [employer] [facility] [employer] POCT glucose meteron 023 Glucose [Mass/Vol] 98 mg/dL 70 - 100 mg/dL [facility] Interpretation and review of laboratory results Normal [facility] Performed by: [facility], [address] [place] [address] CLIA ID: [id number] [facility] [employer] [facility] [employer] POCT glucose meteron 023 Glucose [Mass/Vol] 157 mg/dL High 70 - 100 mg/dL [facility] [employer] Interpretation and review of laboratory results Abnormal [facility] Performed by: [facility], [address] [place] [address] CLIA ID: [id number] [facility] [employer] [facility] Glucose [Mass/Vol] 113 mg/dL High 70 - 100 mg/dL [facility] [employer] Interpretation and review of laboratory results Abnormal [facility] Performed by: [facility], [address] [place] [address] CLIA ID: [id number] [facility] [employer] [facility] [employer] [facility] XR Chest Single viewon 01-08 [facility] 1950 [id number] Exam Date/Time: 01/08/2023 05:19 Procedure: XR CHEST 1 VIEW Ordering Provider: WEAVER JENNIFER Reason For Exam: Shortness of breath CLINICAL INFORMATION: Shortness of breath. CHEST X-RAY, PORTABLE, 0519 hours: An AP portable view is compared to the prior examination of the previous day. The patient is slightly rotated to the right, and there are slightly limited lung volumes. There are stable small right and probable left pleural effusions. No evidence of other acute process or interval change. Report Dictated on Electronically Signed By: Gómez Calvert MD Electronically Signed Date/Time: 01/08/2023 7:43 AM [facility] Gómez Calvert MD - 01/08/2023 Patient Name: LACY ALVARADO : 1950 [facility]#: [id number] Exam Date/Time: 01/08/2023 05:19 Procedure: XR CHEST 1 VIEW Ordering Provider: WEAVER JENNIFER Reason For Exam: Shortness of breath CLINICAL INFORMATION: Shortness of breath. CHEST X-RAY, PORTABLE, 0519 hours: An AP portable view is compared to the prior examination of the previous day. The patient is slightly rotated to the right, and there are slightly limited lung volumes. There are stable small right and probable left pleural effusions. No evidence of other acute process or interval change. Report Dictated on Electronically Signed By: Gómez Calvert MD Electronically Signed Date/Time: 01/08/2023 7:43 AM EDT [facility] Radiology Study observation (narrative) [facility] Basic metabolic 1998 panelon 01-07-2023 Anion gap [Moles/Vol] 9 mmol/L 3 - 13 mmol/L [facility] Calcium [Mass/Vol] 8.5 mg/dL 8.4 - 10. 4 mg/dL [facility] Chloride [Moles/Vol] 101 mmol/L 98 - 10 7 mmol/L [facility] CO2 [Moles/Vol] 27 mmol/L 22 - 30 mmol/L [facility] Creatinine [Mass/Vol] 0.91 mg/dL 0.52 - 1.04 mg/dL [facility] GFR/1.73 sq M.predicted MDRD (S/P/Bld) [Vol rate/Area] 68.0 mL/min/{1.73_m2} - PINF [facility] Comment on above: Calculation based on the Chronic Kidney Disease Epidemiology Collaboration (CKD-EPI) equation refit without adjustment for race Glucose [Mass/Vol] 83 mg/dL 70 - 100 mg/dL [facility] Potassium [Moles/Vol] 4.2 mmol/L 3.5 - 5.1 mmol/L [facility] Sodium [Moles/Vol] 137 mmol/L 135 - 145 mmol/L [facility] Urea nitrogen [Mass/Vol] 30 mg/dL High 7 - 17 mg/dL [facility] CBC panel Auto (Bld)Ordered By: Ekaterina Fountain on 01-07-2023 Erythrocyte distribution width (RBC) [Ratio] 15.8 % High 11.5 - 14.5 % [facility] Hematocrit (Bld) [Volume fraction] 30.0 % Low 35.0 - 47.0 % [facility] Hemoglobin (Bld) [Mass/Vol] 10.3 g/dL Low 11.7 - 16.0 g/dL [facility] Interpretation and review of laboratory results Abnormal [facility] MCH (RBC) [Entitic mass] 32.0 pg 26.0 - 34.0 pg [facility] MCHC (RBC) [Mass/Vol] 34.2 % 32.0 - 36.0 % [facility] MCV (RBC) [Entitic vol] 93.7 fL 80.0 - 98.0 fL [facility] Platelet mean volume (Bld) [Entitic vol] 9.1 fL 7.4 - 12.4 fL [facility] Platelets (Bld) [#/Vol] 162 10*3/uL 140 - 440 10*3/uL [facility] RBC (Bld) [#/Vol] 3.21 10*6/uL Low 3.8 - 5.20 10*6/uL [facility] WBC (Bld) [#/Vol] 5.4 10*3/uL 3.6 - 10.7 10*3/uL [facility] Magnesiumon 01-07-2023 Magnesium [Mass/Vol] 2.4 mg/dL High 1.6 - 2 .3 mg/dL [facility] No Panel Informationon 01-07 Interpretation and review of laboratory results Abnormal [facility] POCT glucose meteron 023 Glucose [Mass/Vol] 102 mg/dL High 70 - 100 mg/dL [facility] Interpretation and review of laboratory results Abnormal [facility], [address] [place] [address] CLIA ID: [id number] [facility] Glucose [Mass/Vol] 118 mg/dL High 70 - 100 mg/dL [facility] Interpretation and review of laboratory results Abnormal [facility]formed by: [facility], [address] [place] [address] CLIA ID: [id number] [employer] Glucose [Mass/Vol] 124 mg/dL High 70 - 100 mg/dL [employer] Interpretation and review of laboratory results Abnormal [facility] [employer] Performed by: [facility], [address] [place] [address] CLIA ID: [id number] [email or web address] Progress Noteon 01-07-2023 Progress Note Department of Exercise Physiologist al Medicine Division of Endocrinology, Diabetes, & Metabolism Endocrinology Note Patient Name: Lacy Alvarado : 1950 AGE: 72 y.o. 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 We will sign off at this time. If the patient develops consistently elevated blood sugars >150 mg/dL for 2 consecutive days, please contact our [...] [phone] Resp: 18 16 Temp: 37 ?C (98.6 ?F) 36.1 ?C (97 ?F) TempSrc: Temporal Temporal SpO2: 98% 94% 94% [...] q AM DULoxetine, 30 mg, Oral, Daily (more content not included)... Normal [facility] Progress Note Physical Therapy Facility/Department: [facility] Physical Therapy Daily Treatment Note NAME: Lacy [...] The primary encounter diagnosis was CAD in [place] artery. A diagnosis of Coronary artery disease involving coronary bypass graft, unspecified whether angina present, unspecified whether [place] or transplanted heart was also pertinent to this visit. has a past medical history of CHF (congestive heart failure) (CMS/HCC) ([facility]), Diabetes mellitus ([facility]), GERD (gastroesophageal reflux disease), Hyperlipidemia, Hypertension, RA (rheumatoid arthritis) ([facility]), Seizure ([facility]), Seizures ([facility]), and Sleep apnea. has a past surgical history that includes Cardiac catheterization; Coronary stent placement (03/22/2018); Hysterectomy; and Colonoscopy. Restrictions Restrictions/Precautions Restrictions/Precautions : General Precautions, Surgical Protocols Required Braces or Orthoses?: No Position Activity Restriction Sternal Precautions: No Pushing, No Pulling, 10# Lifting Restrictions Sternal Precautions: Yes Other position/activity restrictions: tele, PIV, Vision/Hearing Subjective General Chart Reviewed: Yes Patient Assessed for Rehabilitation Services: Yes Response To Previous Treatment: Patient with no complaints from previous session. Family / Caregiver Present: No Diagnosis: CAD in [place] artery s/p CABG on 01/01 Follows Commands: [...] 4 steps x 3 breaks. Cues for pur (more content not included)... Normal [facility] XR CHEST 1 VIEWon 01-07-2023 XR CHEST 1 VIEW Patient Name: LACY SAVAGE : 1950 Exam Date/Time: 01/07/2023 05:18 Procedure: XR CHEST 1 VIEW Ordering Provider: WEAVER JENNIFER Reason For Exam: Shortness of breath Examination: Portable chest Indication: Shortness of breath Comparison: Previous day Findings: The cardiac silhouette is enlarged with median sternotomy changes. Suspect small pleural effusions. No gross consolidation or sizable infiltrate noted. No sizable pneumothorax. IMPRESSION: Impression: As above. Report Dictated on Electronically Signed By: Nely Pierce MD Electronically Signed Date/Time: 01/07/2023 7:57 AM EDT Normal [facility] XR Chest Single viewon 01-07 Impression: As above. Report Dictated on Electronically Signed By: Nely Pierce MD Electronically Signed Date/Time: 01/07/2023 7:57 AM EDT [facility] Patient Name: LACY SAVAGE : 1950 Exam Date/Time: 01/07/2023 05:18 Procedure: XR CHEST 1 VIEW Ordering Provider: WEAVER JENNIFER Reason For Exam: Shortness of breath Examination: Portable chest Indication: Shortness of breath Comparison: Previous day Findings: The cardiac silhouette is enlarged with median sternotomy changes. Suspect small pleural effusions. No gross consolidation or sizable infiltrate noted. No sizable pneumothorax. [facility] Nely Pierce MD - 01/07/2023 Patient Name: LACY ALVARADO : 1950 Exam Date/Time: 01/07/2023 05:18 Procedure: XR CHEST 1 VIEW Ordering Provider: WEAVER JENNIFER Reason For Exam: Shortness of breath Examination: Portable chest Indication: Shortness of breath Comparison: Previous day Findings: The cardiac silhouette is enlarged with median sternotomy changes. Suspect small pleural effusions. No gross consolidation or sizable infiltrate noted. No sizable pneumothorax. IMPRESSION: Impression: As above. Report Dictated on Electronically Signed By: Nely Pierce MD Electronically Signed Date/Time: 01/07/2023 7:57 AM EDT [facility] Radiology Study observation (narrative) [facility] XR Chest Single viewOrdered By: Nely Pierce on 01-07-2023 [facility] [employer] Work Phone: Basic metabolic 1998 panelon 01-06-2023 Anion gap [Moles/Vol] 11 mmol/L 3 - 13 mmol/L [facility] [employer] [facility] Calcium [Mass/Vol] 8.6 mg/dL 8.4 - 10. 4 mg/dL [facility] [employer] Chloride [Moles/Vol] 98 mmol/L 98 - 10 7 mmol/L [facility] [employer] [facility] CO2 [Moles/Vol] 27 mmol/L 22 - 30 mmol/L [facility] [employer] [facility] Creatinine [Mass/Vol] 0.99 mg/dL 0.52 - 1.04 mg/dL [facility] [employer] GFR/1.73 sq M.predicted MDRD (S/P/Bld) [Vol rate/Area] 61.5 mL/min/{1.73_m2} - PINF [facility] Comment on above: Calculation based on the Chronic Kidney Disease Epidemiology Collaboration (CKD-EPI) equation refit without adjustment for race Glucose [Mass/Vol] 95 mg/dL 70 - 100 mg/dL [facility] [employer] Potassium [Moles/Vol] 3.9 mmol/L 3.5 - 5.1 mmol/L [facility] Sodium [Moles/Vol] 136 mmol/L 135 - 145 mmol/L [facility] [employer] Urea nitrogen [Mass/Vol] 39 mg/dL High 7 - 17 mg/dL [facility] [employer] [facility]2023 [facility], too functional. Updated patient at bedside and alyssa Holloway (HCPOA) over the phone. Declined SNF at this time, would like to plan discharge home with HHC including PT/OT/SN/NURSE WOUND if possible. Will updated [facility], CTS GANG KNIFE [employer] CHOPPER aware. Normal [facility] CBC panel Auto (Bld)Ordered By: Farhat Curtis on 01-06-2023 Erythrocyte distribution width (RBC) [Ratio] 16.2 % High 11.5 - 14.5 % [facility] Hematocrit (Bld) [Volume fraction] 30.7 % Low 35.0 - 47.0 % [facility] Hemoglobin (Bld) [Mass/Vol] 10.2 g/dL Low 11.7 - 16.0 g/dL [facility] Interpretation and review of laboratory results Abnormal [facility] MCH (RBC) [Entitic mass] 31.7 pg 26.0 - 34.0 pg [facility] MCHC (RBC) [Mass/Vol] 33.3 % 32.0 - 36.0 % [facility] MCV (RBC) [Entitic vol] 95.3 fL 80.0 - 98.0 fL [facility] Platelet mean volume (Bld) [Entitic vol] 9.2 fL 7.4 - 12.4 fL [facility] Platelets (Bld) [#/Vol] 141 10*3/uL 140 - 440 10*3/uL [facility] RBC (Bld) [#/Vol] 3.22 10*6/uL Low 3.8 - 5.20 10*6/uL [facility] WBC (Bld) [#/Vol] 5.6 10*3/uL 3.6 - 10.7 10*3/uL [facility] Magnesiumon 01-06-2023 Magnesium [Mass/Vol] 2.7 mg/dL High 1.6 - 2 .3 mg/dL [facility] [employer] No Panel Informationon 01-06 Interpretation and review of laboratory results Abnormal [facility] POCT glucose meteron 023 Glucose [Mass/Vol] 106 mg/dL High 70 - 100 mg/dL [facility] Interpretation and review of laboratory results Abnormal [facility]: [facility], [address] [place] [address] CLIA ID: [id number] [facility] Glucose [Mass/Vol] 97 mg/dL 70 - 100 mg/dL [facility] Interpretation and review of laboratory results Normal [facility]formed by: [facility], [address] [place] [address] CLIA ID: [id number] [facility] Glucose [Mass/Vol] 109 mg/dL High 70 - 100 mg/dL [facility] Interpretation and review of laboratory results Abnormal [facility] Performed by: [facility], [address] [place] [address] CLIA ID: [id number] [facility] Progress Noteon 01-06-2023 Progress Note Occupational Therapy Facility/Department: T1 Occupational Therapy Initial Evaluation NAME: Lacy Alvarado [...] The primary encounter diagnosis was CAD in [place] artery. A diagnosis of Coronary artery disease involving coronary bypass graft, unspecified whether angina present, unspecified whether [place] or transplanted heart was also pertinent to this visit. has a past medical history of CHF (congestive heart failure) ([facility]/HCC) ([facility]), Diabetes mellitus ([facility]), GERD (gastroesophageal reflux disease), Hyperlipidemia, Hypertension, RA (rheumatoid arthritis) ([facility]), Seizure ([facility]), Seizures ([facility]), and Sleep apnea. has a past surgical history that includes Cardiac catheterization; Coronary stent placement (03/22/2018); Hysterectomy; and Colonoscopy. Restrictions Restrictions/Precautions Restrictions/Precautions : General Precautions, Surgical Protocols Required Braces or [...] AM-PAC Score AM-PAC Inpatient Daily Activity Raw Score (more content not included)... Normal [facility] Progress Note Physical Therapy Facility/Department: [facility] Physical Therapy Daily Treatment Note NAME: Lacy [...] The primary encounter diagnosis was CAD in [place] artery. A diagnosis of Coronary artery disease involving coronary bypass graft, unspecified whether angina present, unspecified whether [place] or transplanted heart was also pertinent to this visit. has a past medical history of CHF (congestive heart failure) ([facility]/HCC) ([facility]), Diabetes mellitus ([facility]), GERD (gastroesophageal reflux disease), Hyperlipidemia, Hypertension, RA (rheumatoid arthritis) ([facility]), Seizure ([facility]), Seizures ([facility]), and Sleep apnea. has a past surgical history that includes Cardiac catheterization; Coronary stent placement (03/22/2018); Hysterectomy; and Colonoscopy. Restrictions Restrictions/Precautions Restrictions/Precautions : General Precautions, Surgical Protocols Required Braces or Orthoses?: No Position Activity Restriction Sternal Precautions: No Pushing, No Pulling, 10# Lifting Restrictions Sternal Precautions: Yes Other position/activity restrictions: tele, PIV, Vision/Hearing Subjective General Chart Reviewed: Yes Patient Assessed for Rehabilitation Services: Yes Response To Previous Treatment: Patient with no complaints from previous session. Family / Caregiver Present: No Diagnosis: CAD in [place] artery s/p CABG on 01/01 Follows Commands: [...] room, Nurse notified, Gait belt Restraints Restraints Init (more content not included)... Normal [facility] Progress Note ---- -------- Attestation signed by Bridger Woods MD at 01/06/2023 5:30 PM I have personally seen the patient and [...] plan. Date of service: 01/06/23 Discussed with: []Residents[x]Patient/Farzana delgado [x]KARINA []Consultants [x]SW/TCC[]Other [x]SONYA Personally Reviewed: [x]Epic notes[x]Radiology studies [x]Labs []EKG []Other Assessment: -mvCAD s/p [...] w/ dates: PIV GOC/Family Discussions: Full code -------- Cardiothoracic Surgery/CCM Progress Note PATIENT NAME: Lacy Alvarado DATE: 01/06/23 HPI: 72 y.o. female was referred by Dr. Bhanu Milian. Patient was admitted on 12/18/22 to [facility] with CP history of CHF, CAD, DM [...] Heart Rate: 83 Resp: 16 Temp: 37 ?C (98.6 ?F), Temp Source: Temporal BMI (Calculated): 33.06 CXR: BMP: Recent Labs 01/04/2330801/05/23 0041 01/06/23 0034 NA 135 137 136 K 3.9 3.8 3.9 CL 100 98 98 CO2 26 27 27 BUN 34* 43* 39* CREATININE 1.11* 1.25* 0.99 CALCIUM 8.5 8.5 8.6 MG 2.6* 2.8* 2.7* CBC: Recent Labs 01/04/23 03001/05/23 0041 01/06/23 0034 WBC 7.9 6.7 5.6 [...] start IPR planning [place]: []Yes [x] N (more content not included)... Normal [facility] XR CHEST 1 VIEWon 01-06-2023 XR CHEST 1 VIEW [facility]AV[facility] : 1950 [id number] Exam Date/Time: 01/06/2023 05:16 Procedure: XR CHEST 1 VIEW Ordering Provider: WEAVER JENNIFER Reason For Exam: Shortness of breath PORTABLE CHEST: INDICATION: Shortness of breath COMPARISON: 01/05/2023 Obtained at 0515 hours. A single portable AP radiograph of the chest was obtained. The heart is enlarged. The mediastinal silhouette is normal. There is linear atelectasis of the left base. A layering right effusion with atelectasis present. There is no pleural thickening. Arthritic changes of the spine and shoulders are present. The patient has undergone prior open heart surgery. IMPRESSION: Layering right effusion. Atelectasis of the left base. Report Dictated on Electronically Signed By: Eyad Cohen DO Electronically Signed Date/Time: 01/06/2023 9:27 AM EDT [facility] XR Chest Single viewon 01-06 Layering right effus ion. Atelectasis of the left base. Report Dictated on Electronically Signed By: Eyad Cohen DO Electronically Signed Date/Time: 01/06/2023 9:27 AM EDT [facility] Patient Name: LACY SAVAGE : 1950 Exam Date/Time: 01/06/2023 05:16 Procedure: XR CHEST 1 VIEW Ordering Provider: WEAVER JENNIFER Reason For Exam: Shortness of breath PORTABLE CHEST: INDICATION: Shortness of breath COMPARISON: 01/05/2023 Obtained at 0515 hours. A single portable AP radiograph of the chest was obtained. The heart is enlarged. The mediastinal silhouette is normal. There is linear atelectasis of the left base. A layering right effusion with atelectasis present. There is no pleural thickening. Arthritic changes of the spine and shoulders are present. The patient has undergone prior open heart surgery. [facility] Eyad Cohen DO - 01/06/2023 Patient Name: LACY ALVARADO : 1950 Exam Date/Time: 01/06/2023 05:16 Procedure: XR CHEST 1 VIEW Ordering Provider: WEAVER JENNIFER Reason For Exam: Shortness of breath PORTABLE CHEST: INDICATION: Shortness of breath COMPARISON: 01/05/2023 Obtained at 0515 hours. A single portable AP radiograph of the chest was obtained. The heart is enlarged. The mediastinal silhouette is normal. There is linear atelectasis of the left base. A layering right effusion with atelectasis present. There is no pleural thickening. Arthritic changes of the spine and shoulders are present. The patient has undergone prior open heart surgery. IMPRESSION: Layering right effusion. Atelectasis of the left base. Report Dictated on Electronically Signed By: Eyad Cohen DO Electronically Signed Date/Time: 01/06/2023 9:27 AM EDT [facility] Radiology Study observation (narrative) [facility] [facility] XR Chest Single viewOrdered By: Eyad Cohen on 01-06-2023 [facility] Work Phone: Basic metabolic 1998 panelon 01-05-2023 Anion gap [Moles/Vol] 11 mmol/L 3 - 13 mmol/L [facility] Calcium [Mass/Vol] 8.5 mg/dL 8.4 - 10. 4 mg/dL [facility] Chloride [Moles/Vol] 98 mmol/L 98 - 10 7 mmol/L [facility] CO2 [Moles/Vol] 27 mmol/L 22 - 30 mmol/L [facility] Creatinine [Mass/Vol] 1.25 mg/dL High 0.52 - 1.04 mg/dL [facility] GFR/1.73 sq M.predicted MDRD (S/P/Bld) [Vol rate/Area] 46.5 mL/min/{1.73_m2} Low - PINF [facility] Comment on above: Calculation based on the Chronic Kidney Disease Epidemiology Collaboration (CKD-EPI) equation refit without adjustment for race Glucose [Mass/Vol] 98 mg/dL 70 - 100 mg/dL [facility] Potassium [Moles/Vol] 3.8 mmol/L 3.5 - 5.1 mmol/L [facility] Sodium [Moles/Vol] 137 mmol/L 135 - 145 mmol/L [facility] Urea nitrogen [Mass/Vol] 43 mg/dL High 7 - 17 mg/dL [facility] CBC panel Auto (Bld)on 01-05 Erythrocyte distribution width (RBC) [Ratio] 16.0 % High 11.5 - 14.5 % [facility] Hematocrit (Bld) [Volume fraction] 28.7 % Low 35.0 - 47.0 % [facility] Hemoglobin (Bld) [Mass/Vol] 9.9 g/dL Low 11.7 - 16.0 g/dL [facility] Interpretation and review of laboratory results Abnormal [facility] MCH (RBC) [Entitic mass] 32.1 pg 26.0 - 34.0 pg [facility] MCHC (RBC) [Mass/Vol] 34.3 % 32.0 - 36.0 % [facility] MCV (RBC) [Entitic vol] 93.5 fL 80.0 - 98.0 fL [facility] Platelet mean volume (Bld) [Entitic vol] 9.9 fL 7.4 - 12.4 fL [facility] Platelets (Bld) [#/Vol] 114 10*3/uL Low 140 - 440 10*3/uL [facility] RBC (Bld) [#/Vol] 3.07 10*6/uL Low 3.8 - 5.20 10*6/uL [facility] WBC (Bld) [#/Vol] 6.7 10*3/uL 3.6 - 10.7 10*3/uL [facility] Magnesiumon 01-05-2023 Magnesium [Mass/Vol] 2.8 mg/dL High 1.6 - 2 .3 mg/dL [facility] No Panel Informationon 01-05 Interpretation and review of laboratory results Abnormal [facility] Blood Expiration Date [id number] S [facility] Crossmatch interpretation COMP [facility] Dispense Status Released from Crossmatch [facility] Product Blood Type 5100 [facility] PRODUCT CODE [id number] [facility] Unit ABO O [facility] Unit RH Positive [facility] Unit Volume 300 mL [facility] POCT glucose meteron 023 Glucose [Mass/Vol] 105 mg/dL High 70 - 100 mg/dL [facility] Interpretation and review of laboratory results Abnormal [facility]formed by: [facility], [address] [place] [address] CLIA ID: [id number] [facility] Glucose [Mass/Vol] 110 mg/dL High 70 - 100 mg/dL [facility] Interpretation and review of laboratory results Abnormal [facility] Performed by: [facility], [address] [place] [address] CLIA ID: [id number] [email or web address] Prepare RBC: 2 Unitson 01-05 Unit Number [id number] [facility] Unit Number [id number] [email or web address] Progress Noteon 01-05-2023 Progress Note Department of Exercise Physiologist al Medicine Division of Endocrinology, Diabetes, & Metabolism Endocrinology Note Patient Name: Lacy Alvarado : 1950 AGE: 72 y.o. Room/Bed: T1-103/T1-103 A Admission Date: 01/01/2023 Visit Date: 01/05/2023 Reason for Endocrine Consult: post op heart Provider/Team Requesting Consult: cts PCP: MAYDA GARCIA Outpt Bottle Booth Attendant: No ASSESSMENT: DM 2 with hyperglycemia without termite control representative insulin Stress hyperglycemia CAD s/p Cabgx4 PLAN: [...] pantoprazole, 40 mg, Oral, qAM AC polyethylene gly (more content not included)... Normal [facility] Progress Note ---- -------- Attestation signed by Bridger Woods MD at 01/05/2023 2:26 PM (Updated) I have personally seen the patient and [...] plan. Date of service: 01/05/23 Discussed with: []Residents[x]Patient/Fa danny [x]RN [x]Consultants []SW/TCC[]Other [x]SONYA Personally Reviewed: [x]Epic notes[x]Radiology studies [x]Labs []EKG []Other In addition to [...] w/ dates: PIV GOC/Family Discussions: Full code -------- Cardiothoracic Surgery/CCM Progress Note PATIENT NAME: Lacy Alvarado DATE: 01/05/23 HPI: Lacy Alvarado is a 72 y.o. female was referred to us by Dr. Bhanu Milian. Patient was admitted on 12/18/22 to [facility] with CP history of CHF, CAD, DM [...] Heart Rate: 94 Resp: 16 Temp: 37.1 ?C (98.8 ?F), Temp Source: Temporal BMI (Calculated): 32 BMP: Recent Labs 01/03/23 00101/04/23 0309 01/05/23 0041 NA 136 135 137 K 4.4 3.9 3.8 CL 103 100 98 CO2 25 26 27 BUN 23* 34* 43* CREATININE 0.80 1.11* 1.25* CALCIUM 8.5 8.5 8.5 MG 2.3 2.6* 2.8* CBC: Recent Labs 01/03/231301/04/23 0309 01/05/23 0041 WBC 8.6 7.9 6.7 HGB 10.1* 9.9* 9.9* HCT 29.5* 29.0* 28.7* PLT 82* 87* 114* MCV 93.3 93.4 93.5 RDW 16.7* 16.0* 16.0* INR: Recent Labs 01/03/2313 INR 1.1 Physical Exam Vitals reviewed. Constitutional: [...] pleural effusion, possible thoracentesis. Stop lasix today. (more content not included)... Normal [facility] XR CHEST 1 VIEWon 01-05-2023 XR CHEST 1 VIEW Patient Name: [facility]ACY SAVAGE : 1950 [id number] Exam Date/Time: 01/05/2023 05:19 Procedure: XR CHEST 1 VIEW Ordering Provider: WEAVER JENNIFER Reason For Exam: Shortness of breath CHEST X-RAY CLINICAL INDICATION: Shortness of breath TECHNIQUE: AP COMPARISON: 01/04/2023 FINDINGS: Quality: Exam quality: EKG leads obscure small portions of the chest. Lines: None Cardiomediastinal Silhouette: The cardiomediastinal silhouette is stable compared to prior exam.. Postsurgical changes compatible with median sternotomy and cardiac surgery. Lungs: Perihilar vascular congestion is noted without evidence of interstitial opacities. No focal consolidation identified. Bibasilar pleural effusions are noted, right greater than left, with associated passive atelectasis. Soft tissue: The soft tissue structures appear unremarkable. Bones: No acute osseous process identified. IMPRESSION: See findings. Report Dictated on Electronically Signed By: Jake Vasquez MD Electronically Signed Date/Time: 01/05/2023 5:[address] [facility] XR Chest Single viewon 01-05 See findings. Report Dictated on Electronically Signed By: Jake Vasquez MD Electronically Signed Date/Time: 01/05/2023 5:37 AM EDT [facility] Patient Name: LACY SAVAGE : 1950 Exam Date/Time: 01/05/2023 05:19 Procedure: XR CHEST 1 VIEW Ordering Provider: WEAVER JENNIFER Reason For Exam: Shortness of breath CHEST X-RAY CLINICAL INDICATION: Shortness of breath TECHNIQUE: AP COMPARISON: 01/04/2023 FINDINGS: Quality: Exam quality: EKG leads obscure small portions of the chest. Lines: None Cardiomediastinal Silhouette: The cardiomediastinal silhouette is stable compared to prior exam.. Postsurgical changes compatible with median sternotomy and cardiac surgery. Lungs: Perihilar vascular congestion is noted without evidence of interstitial opacities. No focal consolidation identified. Bibasilar pleural effusions are noted, right greater than left, with associated passive atelectasis. Soft tissue: The soft tissue structures appear unremarkable. Bones: No acute osseous process identified. [facility] Jake Vasquez MD - 01/05/2023 Patient Name: LACY ALVARADO : 1950 Exam Date/Time: 01/05/2023 05:19 Procedure: XR CHEST 1 VIEW Ordering Provider: WEAVER JENNIFER Reason For Exam: Shortness of breath CHEST X-RAY CLINICAL INDICATION: Shortness of breath TECHNIQUE: AP COMPARISON: 01/04/2023 FINDINGS: Quality: Exam quality: EKG leads obscure small portions of the chest. Lines: None Cardiomediastinal Silhouette: The cardiomediastinal silhouette is stable compared to prior exam.. Postsurgical changes compatible with median sternotomy and cardiac surgery. Lungs: Perihilar vascular congestion is noted without evidence of interstitial opacities. No focal consolidation identified. Bibasilar pleural effusions are noted, right greater than left, with associated passive atelectasis. Soft tissue: The soft tissue structures appear unremarkable. Bones: No acute osseous process identified. IMPRESSION: See findings. Report Dictated on Electronically Signed By: Jake Vasquez MD Electronically Signed Date/Time: 01/05/2023 5:37 AM EDT [facility] Radiology Study observation (narrative) [employer] [facility] XR Chest Single viewOrdered By: Jake Vasquez on 01-05-2023 [facility] Work Phone: Basic metabolic 1998 panelon 01-04-2023 Anion gap [Moles/Vol] 8 mmol/L 3 - 13 mmol/L [facility] Calcium [Mass/Vol] 8.5 mg/dL 8.4 - 10. 4 mg/dL [facility] Chloride [Moles/Vol] 100 mmol/L 98 - 10 7 mmol/L [facility] CO2 [Moles/Vol] 26 mmol/L 22 - 30 mmol/L [facility] Creatinine [Mass/Vol] 1.11 mg/dL High 0.52 - 1.04 mg/dL [facility] GFR/1.73 sq M.predicted MDRD (S/P/Bld) [Vol rate/Area] 53.6 mL/min/{1.73_m2} Low - PINF [facility] Comment on above: Calculation based on the Chronic Kidney Disease Epidemiology Collaboration (CKD-EPI) equation refit without adjustment for race Glucose [Mass/Vol] 97 mg/dL 70 - 100 mg/dL [facility] Potassium [Moles/Vol] 3.9 mmol/L 3.5 - 5.1 mmol/L [facility] Sodium [Moles/Vol] 135 mmol/L 135 - 145 mmol/L [facility] Urea nitrogen [Mass/Vol] 34 mg/dL High 7 - 17 mg/dL [facility] CBC panel Auto (Bld)Ordered By: Thien Sinha on 01-04-2023 Erythrocyte distribution width (RBC) [Ratio] 16.0 % High 11.5 - 14.5 % [facility] Hematocrit (Bld) [Volume fraction] 29.0 % Low 35.0 - 47.0 % [facility] Hemoglobin (Bld) [Mass/Vol] 9.9 g/dL Low 11.7 - 16.0 g/dL [facility] Interpretation and review of laboratory results Abnormal [facility] MCH (RBC) [Entitic mass] 31.9 pg 26.0 - 34.0 pg [facility] MCHC (RBC) [Mass/Vol] 34.1 % 32.0 - 36.0 % [facility] MCV (RBC) [Entitic vol] 93.4 fL 80.0 - 98.0 fL [facility] Platelet mean volume (Bld) [Entitic vol] 9.2 fL 7.4 - 12.4 fL [facility] Platelets (Bld) [#/Vol] 87 10*3/uL Low 140 - 440 10*3/uL [facility] RBC (Bld) [#/Vol] 3.10 10*6/uL Low 3.8 - 5.20 10*6/uL [facility] WBC (Bld) [#/Vol] 7.9 10*3/uL 3.6 - 10.7 10*3/uL [facility] Magnesiumon 01-04-2023 Magnesium [Mass/Vol] 2.6 mg/dL High 1.6 - 2 .3 mg/dL [facility] No Panel Informationon 01-04 Interpretation and review of laboratory results Abnormal [facility] POCT glucose meteron 023 Glucose [Mass/Vol] 116 mg/dL High 70 - 100 mg/dL [facility] Interpretation and review of laboratory results Abnormal [facility]formed by: [facility], [address] [place] [address] CLIA ID: [id number] [facility] Glucose [Mass/Vol] 119 mg/dL High 70 - 100 mg/dL [facility] Interpretation and review of laboratory results Abnormal [facility] Performed by: [facility], [address] [place] [address] CLIA ID: [id number] [facility] Glucose [Mass/Vol] 122 mg/dL High 70 - 100 mg/dL [facility] Interpretation and review of laboratory results Abnormal [facility] Performed by: [facility], [address] [place] [address] CLIA ID: [id number] [facility] Progress Noteon 01-04-2023 Progress Note Cardiothoracic Surge ry Note PATIENT NAME: Lacy Alvarado : 1950 (72 y.o.) TODAY'S DATE: 01/04/2023 Objective: BP 106/60 (BP Location: Right arm, Patient Position: Sitting) Pulse 84 Temp 36.3 ?C (97.4 ?F) (Temporal) Resp 14 Ht 5' 2 (1.575 m) Wt 175 lb (79.4 kg) SpO2 96% BMI 32.01 kg/m? Chest tubes assessed: no air leak, subcutaneous air noted. Chest tubes removed without difficulty and dressing applied. Patient tolerated well. Patient and nurse educated on possible complications to observe for. Will continue to monitor. [facility] Progress Note Physical Therapy Facility/Department: [facility] Physical Therapy Daily Treatment Note NAME: [...] The primary encounter diagnosis was CAD in [place] artery. A diagnosis of Coronary artery disease involving coronary bypass graft, unspecified whether angina present, unspecified whether [place] or transplanted heart was also pertinent to this visit. has a past medical history of CHF (congestive heart failure) (CMS/HCC) ([facility]), Diabetes mellitus (HCC), GERD (gastroesophageal reflux disease), Hyperlipidemia, Hypertension, RA (rheumatoid arthritis) ([facility]), Seizure (HCC), Seizures (HCC), and Sleep apnea. has a past surgical history that includes Cardiac catheterization; Coronary stent placement (03/22/2018); Hysterectomy; and Colonoscopy. Restrictions Restrictions/Precautions Restrictions/Precautions : General Precautions, Surgical Protocols Required Braces or Orthoses?: No Position Activity Restriction Sternal Precautions: No Pushing, No Pulling, 10# Lifting Restrictions Sternal Precautions: Yes Other position/activity restrictions: tele, chest tubes, PIV, Vision/Hearing Subjective General Chart Reviewed: Yes Patient Assessed for Rehabilitation Services: Yes Family / Caregiver Present: No Diagnosis: CAD in [place] artery s/p CABG on 01/01 Follows Commands: [...] assistance Comment: STS x 3 for transfers recliner>rollator>toilet >recliner. Cues for sternal precautions throughout Ambulation Ambulation: [...] of 14 or lower. (Progressing) Start: 01/02/23 (more content not included)... Normal [facility] Progress Note Department of Exercise Physiologist al Medicine Division of Endocrinology, Diabetes, & Metabolism Endocrinology Note Patient Name: Lacy Alvarado : 1950 AGE: 72 y.o. Room/Bed: T1-103/T1-103 A Admission Date: 01/01/2023 Visit Date: 01/04/2023 Reason for Endocrine Consult: post op heart Provider/Team [facility] PCP: MAYDA GARCIA Outpt Bottle Booth Attendant: No ASSESSMENT: DM 2 with hyperglycemia without termite control representative insulin Stress hyperglycemia CAD s/p Cabgx4 PLAN: [...] 89 Resp: 14 16 16 Temp: 36.5 ?C (97.7 ?F) 36.4 ?C (97.5 ?F) 36.3 ?C (97.3 ?F) TempSrc: Temporal Temporal Temporal SpO2: 96% 96% [...] Units, SubCUTAneous, BID insulin lispro, 0-6 Units, SubCUTAneo (more content not included)... Normal [facility] XR CHEST 1 VIEWon 01-04-2023 XR CHEST 1 VIEW Patient Name: LACY SAVAGE : 1950 Exam Date/Time: 01/04/2023 05:18 Procedure: XR CHEST 1 VIEW Ordering Provider: WEAVER JENNIFER Reason For Exam: Shortness of breath PORTABLE CHEST X-RAY CLINICAL INDICATION: Shortness of breath A portable frontal view of the chest was obtained. COMPARISON: 01/03/2023 FINDINGS: Heart is enlarged, similar to the prior study. Sternotomy wires, right jugular catheter, mediastinal drain, and left-sided chest tube are unchanged. Mild pulmonary vascular congestion is similar to the prior study. There are small pleural effusions with bilateral basilar atelectasis. No pneumothorax is seen. There are degenerative changes of the spine. IMPRESSION: No significant change when compared with the previous study. Report Dictated on Electronically Signed By: Dino Jurado MD Electronically Signed Date/Time: 01/04/2023 7:18 AM EDT [facility] XR Chest Single viewon 01-04 No significant change when compared with the previous study. Report Dictated on Electronically Signed By: Dino Jurado MD Electronically Signed Date/Time: 01/04/2023 7:18 AM EDT [facility] Patient Name: LACY SAVAGE : 1950 Exam Date/Time: 01/04/2023 05:18 Procedure: XR CHEST 1 VIEW Ordering Provider: WEAVER JENNIFER Reason For Exam: Shortness of breath PORTABLE CHEST X-RAY CLINICAL INDICATION: Shortness of breath A portable frontal view of the chest was obtained. COMPARISON: 01/03/2023 FINDINGS: Heart is enlarged, similar to the prior study. Sternotomy wires, right jugular catheter, mediastinal drain, and left-sided chest tube are unchanged. Mild pulmonary vascular congestion is similar to the prior study. There are small pleural effusions with bilateral basilar atelectasis. No pneumothorax is seen. There are degenerative changes of the spine. [facility] Dino Jurado MD - 01/04/2023 Patient Name: [facility]VARADO : 1950 [id number] Exam Date/Time: 01/04/2023 05:18 Procedure: XR CHEST 1 VIEW Ordering Provider: WEAVER JENNIFER Reason For Exam: Shortness of breath PORTABLE CHEST X-RAY CLINICAL INDICATION: Shortness of breath A portable frontal view of the chest was obtained. COMPARISON: 01/03/2023 FINDINGS: Heart is enlarged, similar to the prior study. Sternotomy wires, right jugular catheter, mediastinal drain, and left-sided chest tube are unchanged. Mild pulmonary vascular congestion is similar to the prior study. There are small pleural effusions with bilateral basilar atelectasis. No pneumothorax is seen. There are degenerative changes of the spine. IMPRESSION: No significant change when compared with the previous study. Report Dictated on Electronically Signed By: Dino Jurado MD Electronically Signed Date/Time: 01/04/2023 7:18 AM EDT [facility] Radiology Study observation (narrative) [facility] Basic metabolic 1998 panelon 01-03-2023 Anion gap [Moles/Vol] 7 mmol/L 3 - 13 mmol/L [facility] Calcium [Mass/Vol] 8.5 mg/dL 8.4 - 10. 4 mg/dL [facility] Chloride [Moles/Vol] 103 mmol/L 98 - 10 7 mmol/L [facility] CO2 [Moles/Vol] 25 mmol/L 22 - 30 mmol/L [facility] Creatinine [Mass/Vol] 0.80 mg/dL 0.52 - 1.04 mg/dL [facility] GFR/1.73 sq M.predicted MDRD (S/P/Bld) [Vol rate/Area] 79.4 mL/min/{1.73_m2} - PINF [facility] Comment on above: Calculation based on the Chronic Kidney Disease Epidemiology Collaboration (CKD-EPI) equation refit without adjustment for race Glucose [Mass/Vol] 113 mg/dL High 70 - 100 mg/dL [facility] Interpretation and review of laboratory results Abnormal [facility] Potassium [Moles/Vol] 4.4 mmol/L 3.5 - 5.1 mmol/L [facility] Sodium [Moles/Vol] 136 mmol/L 135 - 145 mmol/L [facility] Urea nitrogen [Mass/Vol] 23 mg/dL High 7 - 17 mg/dL [facility] CBC panel Auto (Bld)Ordered By: Igor Gar on 01-03-2023 Erythrocyte distribution width (RBC) [Ratio] 16.7 % High 11.5 - 14.5 % [facility] Hematocrit (Bld) [Volume fraction] 29.5 % Low 35.0 - 47.0 % [facility] Hemoglobin (Bld) [Mass/Vol] 10.1 g/dL Low 11.7 - 16.0 g/dL [facility] Interpretation and review of laboratory results Abnormal [facility] MCH (RBC) [Entitic mass] 31.8 pg 26.0 - 34.0 pg [facility] MCHC (RBC) [Mass/Vol] 34.1 % 32.0 - 36.0 % [facility] MCV (RBC) [Entitic vol] 93.3 fL 80.0 - 98.0 fL [facility] Platelet mean volume (Bld) [Entitic vol] 9.1 fL 7.4 - 12.4 fL [facility] Platelets (Bld) [#/Vol] 82 10*3/uL Low 140 - 440 10*3/uL [facility] RBC (Bld) [#/Vol] 3.16 10*6/uL Low 3.8 - 5.20 10*6/uL [facility] WBC (Bld) [#/Vol] 8.6 10*3/uL 3.6 - 10.7 10*3/uL [facility] IDNon 01-03-2023 IDN Problem: Knowledge Deficit Goal: Patient/family/caregiver demonstrates understanding of disease process, treatment plan, medications, and discharge instructions Outcome: Progressing Problem: Potential for Compromised Skin Integrity Goal: Skin Integrity is Maintained or Improved Outcome: Progressing Goal: Nutritional status is improving Outcome: Progressing Problem: Urinary Incontinence Goal: Perineal skin integrity is maintained or improved Outcome: Progressing Problem: Problem Interventions Goal: Assess Nutritional Intake Outcome: Progressing Normal [facility] Magnesiumon 01-03-2023 Magnesium [Mass/Vol] 2.3 mg/dL 1.6 - 2 .3 mg/dL [facility] Magnesium [Mass/Vol]on 01-03 Interpretation and review of laboratory results Normal [facility] No Panel Informationon 01-03 [facility] POCT glucose meteron 023 Glucose [Mass/Vol] 150 mg/dL High 70 - 100 mg/dL [facility] Interpretation and review of laboratory results Abnormal [facility] Performed by: [facility], [address] [place] [address] CLIA ID: [id number] [facility] Glucose [Mass/Vol] 135 mg/dL High 70 - 100 mg/dL [facility] Interpretation and review of laboratory results Abnormal [facility] Performed by: [facility], [address] [place] [address] CLIA ID: [id number] [facility] Glucose [Mass/Vol] 133 mg/dL High 70 - 100 mg/dL [facility] Interpretation and review of laboratory results Abnormal [facility] Performed by: [facility], [address] [place] [address] CLIA ID: [id number] [facility] PROTIME/INR & PTTon 01-04-20 23 aPTT Coag (PPP) [Time] 31.7 s High 20.0 - 30.5 s [facility] INR Coag (PPP) [Relative time] 1.1 {INR} 0.9 - 1.1 [facility] Comment on above: Recommended Anticoag ulant Therapy: SEE BELOW ----- INR of 2.0 - 3.0 : - Prophylaxis of Venous Thrombosis (high-risk surgery) - Treatment of Venous Thrombosis - Treatment of Pulmonary Embolism (Includes tissue heart valves, Acute Myocardial Infarction to prevent systemic embolism, Valvular Heart Disease, and Atrial Fibrillation) ----- INR of 2.5 - 3.5 : - Mechanical Prosthetic Valves (high risk) - If oral anticoagulant therapy is used to prevent Myocardial Infarction Interpretation and review of laboratory results Abnormal [facility] PT Coag (Bld) [Time] 11.6 s 9.0 - 12.0 s [facility] Progress Noteon 01-03-2023 Progress Note Department of Exercise Physiologist al Medicine Division of Endocrinology, Diabetes, & Metabolism Endocrinology Note Patient Name: Lacy Alvarado : 1950 AGE: 72 y.o. Room/Bed: T1-103/T1-103 A Admission Date: 01/01/2023 Visit Date: 01/03/2023 Reason for Endocrine Consult: post op heart Provider/Team Requesting Consult: cts PCP: MAYDA GARCIA Outpt Bottle Booth Attendant: No ASSESSMENT: DM 2 with hyperglycemia without termite control representative insulin Stress hyperglycemia CAD s/p Cabgx4 PLAN: [...] Pulse: 83 84 Resp: 16 Temp: 36.9 ?C (98.4 ?F) TempSrc: SpO2: 97% 96% Weight: Height: Physical [...] IntraVENous, q6h Lidocaine, 1 patch, Topical, Daily magn (more content not included)... Normal [facility] XR CHEST 1 VIEWon 01-03-2023 XR CHEST 1 VIEW Patient Name: LACY SAVAGE : 1950 [facility]#: [id number] Exam Date/Time: 01/03/2023 05:54 Procedure: XR CHEST 1 VIEW Ordering Provider: WEAVER JENNIFER Reason For Exam: Shortness of breath PORTABLE CHEST X-RAY CLINICAL INDICATION: Shortness of breath A portable frontal view of the chest was obtained. COMPARISON: 01/02/2023 FINDINGS: Heart is enlarged, similar to the prior study. Sternotomy wires, right jugular catheter, mediastinal drain, and left-sided chest tube are unchanged. Mild pulmonary vascular congestion is similar to the prior study. There are small pleural effusions with bilateral basilar atelectasis. No pneumothorax is seen. There are degenerative changes of the spine. IMPRESSION: No significant change when compared with the previous study. Report Dictated on Electronically Signed By: Dino Jurado MD Electronically Signed Date/Time: 01/03/2023 10:[address] [facility] XR Chest Single viewon 01-03 No significant change when compared with the previous study. Report Dictated on Electronically Signed By: Dino Jurado MD Electronically Signed Date/Time: 01/03/2023 10:16 AM EDT [facility] Patient Name: LACY SAVAGE : 1950 Exam Date/Time: 01/03/2023 05:54 Procedure: XR CHEST 1 VIEW Ordering Provider: WEAVER JENNIFER Reason For Exam: Shortness of breath PORTABLE CHEST X-RAY CLINICAL INDICATION: Shortness of breath A portable frontal view of the chest was obtained. COMPARISON: 01/02/2023 FINDINGS: Heart is enlarged, similar to the prior study. Sternotomy wires, right jugular catheter, mediastinal drain, and left-sided chest tube are unchanged. Mild pulmonary vascular congestion is similar to the prior study. There are small pleural effusions with bilateral basilar atelectasis. No pneumothorax is seen. There are degenerative changes of the spine. [facility] Dino Jurado MD - 01/03/2023 Patient Name: LACY ALVARADO : 1950 Exam Date/Time: 01/03/2023 05:54 Procedure: XR CHEST 1 VIEW Ordering Provider: WEAVER JENNIFER Reason For Exam: Shortness of breath PORTABLE CHEST X-RAY CLINICAL INDICATION: Shortness of breath A portable frontal view of the chest was obtained. COMPARISON: 01/02/2023 FINDINGS: Heart is enlarged, similar to the prior study. Sternotomy wires, right jugular catheter, mediastinal drain, and left-sided chest tube are unchanged. Mild pulmonary vascular congestion is similar to the prior study. There are small pleural effusions with bilateral basilar atelectasis. No pneumothorax is seen. There are degenerative changes of the spine. IMPRESSION: No significant change when compared with the previous study. Report Dictated on Electronically Signed By: Dino Jurado MD Electronically Signed Date/Time: 01/03/2023 10:16 AM EDT [facility] Radiology Study observation (narrative) [facility] XR Chest Single viewOrdered By: Dino Jurado on 01-03-2023 [facility] [employer] Work Phone: [phone] 01-02-2023 [id number] Mica Spreader following case for Discharge Needs. Normal [facility] Basic metabolic 1998 panelon 01-02-2023 Anion gap [Moles/Vol] 10 mmol/L 3 - 13 mmol/L [facility] Calcium [Mass/Vol] 8.7 mg/dL 8.4 - 10. 4 mg/dL [facility] Chloride [Moles/Vol] 107 mmol/L 98 - 10 7 mmol/L [facility] CO2 [Moles/Vol] 23 mmol/L 22 - 30 mmol/L [facility] Creatinine [Mass/Vol] 0.99 mg/dL 0.52 - 1.04 mg/dL [facility] GFR/1.73 sq M.predicted MDRD (S/P/Bld) [Vol rate/Area] 61.5 mL/min/{1.73_m2} - PINF [facility] Comment on above: Calculation based on the Chronic Kidney Disease Epidemiology Collaboration (CKD-EPI) equation refit without adjustment for race Glucose [Mass/Vol] 104 mg/dL High 70 - 100 mg/dL [facility] Interpretation and review of laboratory results Abnormal [facility] Potassium [Moles/Vol] 4.5 mmol/L 3.5 - 5.1 mmol/L [facility] Sodium [Moles/Vol] 140 mmol/L 135 - 145 mmol/L [facility] Urea nitrogen [Mass/Vol] 20 mg/dL High 7 - 17 mg/dL [facility] Anion gap [Moles/Vol] 13 mmol/L 3 - 13 mmol/L [facility] Calcium [Mass/Vol] 8.3 mg/dL Low 8.4 - 10. 4 mg/dL [facility] Chloride [Moles/Vol] 107 mmol/L 98 - 10 7 mmol/L [facility] [employer] CO2 [Moles/Vol] 21 mmol/L Low 22 - 30 mmol/L [facility] [employer] Creatinine [Mass/Vol] 0.86 mg/dL 0.52 - 1.04 mg/dL [facility] GFR/1.73 sq M.predicted MDRD (S/P/Bld) [Vol rate/Area] 72.8 mL/min/{1.73_m2} - PINF [facility] Comment on above: Calculation based on the Chronic Kidney Disease Epidemiology Collaboration (CKD-EPI) equation refit without adjustment for race Glucose [Mass/Vol] 134 mg/dL High 70 - 100 mg/dL [facility] [employer] Interpretation and review of laboratory results Abnormal [facility] [employer] Potassium [Moles/Vol] 4.5 mmol/L 3.5 - 5.1 mmol/L [facility] Sodium [Moles/Vol] 140 mmol/L 135 - 145 mmol/L [facility] [employer] Urea nitrogen [Mass/Vol] 19 mg/dL High 7 - 17 mg/dL [facility] [employer] CARECOORDon 01-02-2023 [facility] Care Managment Initi al Assessment Date: 01/02/2023 Patient Name: Lacy Alvarado : 1950 Patient Information Source of Information: Patient Cognition/Language: WFL - Within Functional Limits Permission given to speak with patient signs sales representative/caregiver as indicated: Yes Confirmation of Payer with patient/family: Yes Payer Name: An[employer] Medicare [place]: No Confirmation of Primary Care Physician: Confirmed [...] of Daily Living Ambulation: Independent Bathing/Dressing: Independent Elimination/Continence/T oileting: Independent Feeding: Independent Who Assists with Activities of Daily Living: Instrumental Activities of Daily Living Prescription Coverage: Yes Pharmacy Used: [facility] Medication Management: Independent Transportation/Shopping: Assistance Provider Transportation/Shopping [...] for home care needs. Delores Mullins RN Normal [facility] CBC panel Auto (Bld)Ordered By: Maurilio Vidal on 01-02-2023 Erythrocyte distribution width (RBC) [Ratio] 16.8 % High 11.5 - 14.5 % [facility] Hematocrit (Bld) [Volume fraction] 25.7 % Low 35.0 - 47.0 % [facility] Hemoglobin (Bld) [Mass/Vol] 8.7 g/dL Low 11.7 - 16.0 g/dL [facility] Interpretation and review of laboratory results Abnormal [facility] MCH (RBC) [Entitic mass] 31.3 pg 26.0 - 34.0 pg [facility] MCHC (RBC) [Mass/Vol] 33.9 % 32.0 - 36.0 % [facility] MCV (RBC) [Entitic vol] 92.4 fL 80.0 - 98.0 fL [facility] Platelet mean volume (Bld) [Entitic vol] 9.0 fL 7.4 - 12.4 fL [facility] Platelets (Bld) [#/Vol] 80 10*3/uL Low 140 - 440 10*3/uL [facility] RBC (Bld) [#/Vol] 2.79 10*6/uL Low 3.8 - 5.20 10*6/uL [facility] WBC (Bld) [#/Vol] 6.1 10*3/uL 3.6 - 10.7 10*3/uL [facility] [employer] [facility] [employer] ECG 12 leadOrdered By: Slava Martins on 01-02-2023 Heart rate 95 /min bpm [facility] [employer] Work Phone: P Driscoll 53 degrees [facility] [employer] Work Phone: SC Interval 183 ms [facility] Work Phone: QRS Driscoll 20 degrees [facility] [employer] Work Phone: QRSD Interval 86 ms [facility] [employer] Work Phone: QT Interval 380 ms [facility] [employer] Work Phone: [phone] QTC Interval 480 ms [facility] [employer] Work Phone: T Wave Driscoll 27 degrees [facility] [employer] Work Phone: [facility] [employer] Work Phone: ECG 12 leadon 01-02-2023 Sinus rhythm Electronically Signed On 01-02-2023 9:42:47 EDT by Michelle Stanley MD - 01/02/2023 IMPRESSION: Sinus rhythm Electronically Signed On 01-02-2023 9:42:47 EDT [facility] 102 /min bpm [facility] [employer] P Driscoll 56 degrees [facility] [employer] SC Interval 147 ms [facility] QRS Driscoll 6 degrees [facility] QRSD Interval 70 ms [facility] QT Interval 332 ms [facility] QTC Interval 433 ms [facility] T Wave Driscoll 29 degrees [facility] Sinus tachycardia Probable left atrial enlargement Minimal ST elevation, inferior leads Electronically Signed On 01-02-2023 8:55:59 EDT by Michelle Stanley MD - 01/02/2023 IMPRESSION: Sinus tachycardia Probable left atrial enlargement Minimal ST elevation, inferior leads Electronically Signed On 01-02-2023 8:55:59 EDT by [facility] ECG 12-LEADon 01-02-2023 ECG 12-LEAD IMPRESSION: Sinus rhythm Electronically Signed On 01-02-2023 9:42:47 [facility] IMPRESSION: Sinus tachycardia Probable left atrial enlargement Minimal ST elevation, inferior leads Electronically Signed On 01-02-2023 8:55:59 EDT [facility] Magnesiumon 01-02-2023 Magnesium [Mass/Vol] 2.3 mg/dL 1.6 - 2 .3 mg/dL [facility] Magnesium [Mass/Vol]on 01-02 Interpretation and review of laboratory results Normal [facility] [employer] No Panel Informationon 01-02 [facility] [employer] POCT glucose meteron 023 Glucose [Mass/Vol] 116 mg/dL High 70 - 100 mg/dL [facility] Interpretation and review of laboratory results Abnormal [facility] Performed by: [facility], [address] [place] [address] CLIA ID: [id number] [facility] Glucose [Mass/Vol] 121 mg/dL High 70 - 100 mg/dL [facility] Interpretation and review of laboratory results Abnormal [facility] Performed by: [facility], [address] [place] [address] CLIA ID: [id number] [facility] Glucose [Mass/Vol] 121 mg/dL High 70 - 100 mg/dL [facility] Interpretation and review of laboratory results Abnormal [facility] Performed by: [facility], [address] [place] [address] CLIA ID: [id number] [facility] Glucose [Mass/Vol] 132 mg/dL High 70 - 100 mg/dL [facility] Interpretation and review of laboratory results Abnormal [facility] Performed by: [facility], [address] [place] [address] CLIA ID: [id number] [facility] Glucose [Mass/Vol] 132 mg/dL High 70 - 100 mg/dL [facility] Interpretation and review of laboratory results Abnormal [facility] Performed by: [facility] [employer] [facility], [address] [place] [address] CLIA ID: [id number] [facility] Glucose [Mass/Vol] 120 mg/dL High 70 - 100 mg/dL [facility] Interpretation and review of laboratory results Abnormal [facility] Performed by: [facility], [address] [place] [address] CLIA ID: [id number] [facility] Glucose [Mass/Vol] 145 mg/dL High 70 - 100 mg/dL [facility] Interpretation and review of laboratory results Abnormal [facility] Performed by: [facility], [address] [place] [address] CLIA ID: [id number] [facility] Glucose [Mass/Vol] 136 mg/dL High 70 - 100 mg/dL [facility] Interpretation and review of laboratory results Abnormal [facility] Performed by: [facility], [address] [place] [address] CLIA ID: [id number] [facility] Glucose [Mass/Vol] 118 mg/dL High 70 - 100 mg/dL [facility] Interpretation and review of laboratory results Abnormal [facility] Performed by: [facility], [address] [place] [address] CLIA ID: [id number] [facility] Glucose [Mass/Vol] 144 mg/dL High 70 - 100 mg/dL [facility] Interpretation and review of laboratory results Abnormal [facility] Performed by: [facility], [address] [place] [address] CLIA ID: [id number] [facility] Glucose [Mass/Vol] 153 mg/dL High 70 - 100 mg/dL [facility] Interpretation and review of laboratory results Abnormal [facility] Performed by: [facility] [facility], [address] [place] [address] CLIA ID: [id number] [facility] PROTIME/INR & PTTon 01-03-20 23 aPTT Coag (PPP) [Time] 30.9 s High 20.0 - 30.5 s [facility] INR Coag (PPP) [Relative time] 1.1 {INR} 0.9 - 1.1 [facility] Comment on above: Recommended Anticoag ulant Therapy: SEE BELOW ----- INR of 2.0 - 3.0 : - Prophylaxis of Venous Thrombosis (high-risk surgery) - Treatment of Venous Thrombosis - Treatment of Pulmonary Embolism (Includes tissue heart valves, Acute Myocardial Infarction to prevent systemic embolism, Valvular Heart Disease, and Atrial Fibrillation) ----- INR of 2.5 - 3.5 : - Mechanical Prosthetic Valves (high risk) - If oral anticoagulant therapy is used to prevent Myocardial Infarction Interpretation and review of laboratory results Abnormal [facility] PT Coag (Bld) [Time] 11.9 s 9.0 - 12.0 s [facility] Progress Noteon 01-02-2023 Progress Note Physical Therapy Facility/Department: [facility] Physical Therapy Initial Evaluation NAME: Lacy Alvraado : 1950 Date of Service: 01/02/2023 Discharge [...] The primary encounter diagnosis was CAD in [place] artery. A diagnosis of Coronary artery disease involving coronary bypass graft, unspecified whether angina present, unspecified whether [place] or transplanted heart was also pertinent to this visit. has a past medical history of CHF (congestive heart failure) (CMS/HCC) ([facility]), Diabetes mellitus ([facility]), GERD (gastroesophageal reflux disease), Hyperlipidemia, Hypertension, RA (rheumatoid arthritis) ([facility]), Seizure ([facility]), Seizures ([facility]), and Sleep apnea. has a past surgical history that includes Cardiac catheterization; Coronary stent placement (03/22/2018); Hysterectomy; and Colonoscopy. Restrictions Restrictions/Precautions Restrictions/Precautions : General Precautions, Surgical Protocols Required Braces or [...] / Caregiver Present: No Diagnosis: CAD in [place] artery s/p CABG on 01/01 Follows Commands: Within Functional Limits Subjective Subjective: Pt sitting up in chair and agreed to PT. 10 pain reported in chest through incision site. [...] and backwards for 4 trials with min (more content not included)... Normal [facility] Progress Note ---- -------- Attestation signed by Angela Smith MD at 01/02/2023 1:35 PM I performed a history and physical examination [...] mg/dL). BP 125/50 Pulse 91 Temp 37.4 ?C (99.3 ?F) (Bladder) Resp 10 Ht 5' 2 (1.575 m) Wt 173 lb 11.6 oz (78.8 kg) SpO2 96% BMI 31.77 kg/m? Obese, awake, alert, not in distress, RRR, [...] coordination of care as documented in note. -------- Department of Internal Medicine Division of Endocrinology, Diabetes, & Metabolism Endocrinology Note Patient Name: Lacy Alvarado : 1950 AGE: 72 y.o. Room/Bed: [facility]/[address] Admission Date: 01/01/2023 Visit Date: 01/02/2023 Reason for Endocrine Consult: post op heart Provider/Team Requesting Consult: cts PCP: MAYDA GARCIA Outpt Bottle Booth Attendant: No ASSESSMENT: Cad s/p Cabgx4 Dm2 with hyperglycemia without long-term insulin Stress hyperglycemia Chf Hld/htn PLAN: discontinue [...] Effort: Pulmonary effort is normal. Breath sounds: (more content not included)... Normal [facility] Progress Note ---- -------- Attestation signed by Carlos Chavarria DO at 01/02/2023 10:54 AM Patient is SP CABG on 01/01/23 Post [...] SONYA note. Critical care time 35 minutes -------- Cardiothoracic Surgery/CCM Progress Note PATIENT NAME: Lacy Alvarado DATE: 01/02/23 HPI: Lacy Alvarado is a 72 y.o. female was referred to us by Dr. Bhanu Milian. Patient was admitted on 12/18/22 to [facility] with CP history of CHF, CAD, DM [...] Heart Rate: 104 Resp: 17 Temp: 37.4 ?C (99.3 ?F), Temp Source: Bladder BMI (Calculated): 31.45 BMP: [...] seal. Hold heparin DVT prophy d/t thrombocytopenia. Re (more content not included)... Normal [facility] XR CHEST 1 VIEWon 01-02-2023 XR CHEST 1 VIEW Patient Name: LACY SAVAGE : 1950 Exam Date/Time: 01/02/2023 05:15 Procedure: XR CHEST 1 VIEW Ordering Provider: WEAVER JENNIFER Reason For Exam: Shortness of breath EXAMINATION: CHEST RADIOGRAPH (SINGLE VIEW AP OR PA) Clinical History: Shortness of breath Comparison: Chest radiograph 01/01/2023 and 12/29/2022 RESULT: See impression IMPRESSION: Lines, tubes, and devices: Right IJ percent of venous catheter with tip in the right atrium, similar prior exam. Interval removal of previous endotracheal tube and NG/OG tube. Mediastinal drain. Lungs and pleura: Prominence of the central pulmonary vasculature, similar to slightly increased compared to prior exam. A superimposed medial consolidative opacity in the right lung is not entirely excluded and could be infectious inflammatory or postoperative. Follow-up to document resolution. Blunting of the costophrenic angles suggesting small effusions. No sizable pneumothorax. Cardiomediastinal silhouette: Prominent cardiac silhouette is noted. Status post median sternotomy and mediastinal surgical clips. Other: Degenerative changes of the thoracic spine. Report Dictated on Electronically Signed By: Johan Ervin MD Electronically Signed Date/Time: 01/02/2023 9:48 AM EDT [facility] XR Chest Single viewon 01-02 Lines, tubes, and devices: Right IJ percent of venous catheter with tip in the right atrium, similar prior exam. Interval removal of previous endotracheal tube and NG/OG tube. Mediastinal drain. Lungs and pleura: Prominence of the central pulmonary vasculature, similar to slightly increased compared to prior exam. A superimposed medial consolidative opacity in the right lung is not entirely excluded and could be infectious inflammatory or postoperative. Follow-up to document resolution. Blunting of the costophrenic angles suggesting small effusions. No sizable pneumothorax. Cardiomediastinal silhouette: Prominent cardiac silhouette is noted. Status post median sternotomy and mediastinal surgical clips. Other: Degenerative changes of the thoracic spine. Report Dictated on Electronically Signed By: Johan Ervin MD Electronically Signed Date/Time: 01/02/2023 9:48 AM EDT [facility] Name[facility] : 1950 [id number] Exam Date/Time: 01/02/2023 05:15 Procedure: XR CHEST 1 VIEW Ordering Provider: WEAVER JENNIFER Reason For Exam: Shortness of breath EXAMINATION: CHEST RADIOGRAPH (SINGLE VIEW AP OR PA) Clinical History: Shortness of breath Comparison: Chest radiograph 01/01/2023 and 12/29/2022 RESULT: See impression [facility] Johan Ervin MD - 01/02/2023 Patient Name: LACY ALVARADO : 1950 [facility]#: [id number] Exam Date/Time: 01/02/2023 05:15 Procedure: XR CHEST 1 VIEW Ordering Provider: WEAVER JENNIFER Reason For Exam: Shortness of breath EXAMINATION: CHEST RADIOGRAPH (SINGLE VIEW AP OR PA) Clinical History: Shortness of breath Comparison: Chest radiograph 01/01/2023 and 12/29/2022 RESULT: See impression IMPRESSION: Lines, tubes, and devices: Right IJ percent of venous catheter with tip in the right atrium, similar prior exam. Interval removal of previous endotracheal tube and NG/OG tube. Mediastinal drain. Lungs and pleura: Prominence of the central pulmonary vasculature, similar to slightly increased compared to prior exam. A superimposed medial consolidative opacity in the right lung is not entirely excluded and could be infectious inflammatory or postoperative. Follow-up to document resolution. Blunting of the costophrenic angles suggesting small effusions. No sizable pneumothorax. Cardiomediastinal silhouette: Prominent cardiac silhouette is noted. Status post median sternotomy and mediastinal surgical clips. Other: Degenerative changes of the thoracic spine. Report Dictated on Electronically Signed By: Johan Ervin MD Electronically Signed Date/Time: 01/02/2023 9:48 AM EDT [facility] Radiology Study observation (narrative) [facility] XR Chest Single viewOrdered By: Johan Ervin on 01-02-2023 [facility] Work Phone: Basic metabolic 1998 panelon 01-01-2023 Anion gap [Moles/Vol] 10 mmol/L 3 - 13 mmol/L [facility] Calcium [Mass/Vol] 9.0 mg/dL 8.4 - 10. 4 mg/dL [facility] Chloride [Moles/Vol] 110 mmol/L High 98 - 10 7 mmol/L [facility] CO2 [Moles/Vol] 20 mmol/L Low 22 - 30 mmol/L [facility] Creatinine [Mass/Vol] 0.77 mg/dL 0.52 - 1.04 mg/dL [facility] GFR/1.73 sq M.predicted MDRD (S/P/Bld) [Vol rate/Area] 83.1 mL/min/{1.73_m2} - PINF [facility] Comment on above: Calculation based on the Chronic Kidney Disease Epidemiology Collaboration (CKD-EPI) equation refit without adjustment for race Glucose [Mass/Vol] 124 mg/dL High 70 - 100 mg/dL [facility] Potassium [Moles/Vol] 3.6 mmol/L 3.5 - 5.1 mmol/L [facility] Sodium [Moles/Vol] 140 mmol/L 135 - 145 mmol/L [facility] Urea nitrogen [Mass/Vol] 21 mg/dL High 7 - 17 mg/dL [facility] Blood gas, arterialOrdered B y: Arthur Gonzalez on 01-01-2023 Base excess Calc (Bld) [Moles/Vol] -3.3000 mmol/L Low -3.0 - 3.0 mmol/L [facility] CO2 (Bld) [Partial pressure] 30.7 mm[Hg] Low - PINF [facility] CO2 [Moles/Vol] 21.4 mmol/L Low 23.0 - 27.0 mmol/L [facility] HCO3 (Bld) [Moles/Vol] 20.4 mmol/L Low 21.0 - 25.0 mmol/L [facility] Hemoglobin (Bld) [Mass/Vol] 7.1 g/dL Screen Only [facility] Interpretation and review of laboratory results Abnormal [facility] Oxygen (Bld) [Partial pressure] 243.2 mm[Hg] High [facility] pH (Bld) 7.441 [pH] 7.350 - 7.450 [facility] Source Of Oxygen Vent [facility] CBC panel Auto (Bld)on 01-01 Erythrocyte distribution width (RBC) [Ratio] 14.2 % 11.5 - 14.5 % [facility] Hematocrit (Bld) [Volume fraction] 20.0 % Low 35.0 - 47.0 % [facility] Hemoglobin (Bld) [Mass/Vol] 6.9 g/dL Critically low 11.7 - 16.0 g/dL [facility] Interpretation and review of laboratory results Abnormal [facility] MCH (RBC) [Entitic mass] 33.1 pg 26.0 - 34.0 pg [facility] MCHC (RBC) [Mass/Vol] 34.3 % 32.0 - 36.0 % [facility] MCV (RBC) [Entitic vol] 96.7 fL 80.0 - 98.0 fL [facility] Platelet mean volume (Bld) [Entitic vol] 8.7 fL 7.4 - 12.4 fL [facility] Platelets (Bld) [#/Vol] 79 10*3/uL Low 140 - 440 10*3/uL [facility] RBC (Bld) [#/Vol] 2.07 10*6/uL Low 3.8 - 5.20 10*6/uL [facility] WBC (Bld) [#/Vol] 9.0 10*3/uL 3.6 - 10.7 10*3/uL [facility] Repeated [facility] CBC panel Auto (Bld)Ordered By: Sadie Jackson on 01-01-2023 Erythrocyte distribution width (RBC) [Ratio] 14.3 % 11.5 - 14.5 % [facility] Hematocrit (Bld) [Volume fraction] 21.4 % Low 35.0 - 47.0 % [facility] Hemoglobin (Bld) [Mass/Vol] 7.2 g/dL Low 11.7 - 16.0 g/dL [facility] Interpretation and review of laboratory results Abnormal [facility] MCH (RBC) [Entitic mass] 32.7 pg 26.0 - 34.0 pg [facility] MCHC (RBC) [Mass/Vol] 33.7 % 32.0 - 36.0 % [facility] MCV (RBC) [Entitic vol] 97.2 fL 80.0 - 98.0 fL [facility] Platelet mean volume (Bld) [Entitic vol] 9.0 fL 7.4 - 12.4 fL [facility] Platelets (Bld) [#/Vol] 78 10*3/uL Low 140 - 440 10*3/uL [facility] Comment on above: This result was prev iously suppressed from the chart. RBC (Bld) [#/Vol] 2.20 10*6/uL Low 3.8 - 5.20 10*6/uL [facility] WBC (Bld) [#/Vol] 7.1 10*3/uL 3.6 - 10.7 10*3/uL [facility] Calcium.ionized [Moles/Vol]o n 01-01-2023 Calcium.ionized (Bld) [Moles/Vol] 4.80 mg/dL 4.30 - 5.20 mg/dL [facility] Interpretation and review of laboratory results Normal [facility] PH, IONIZED CALCIUM 7.46 7.31 - 7.46 [facility] Consulton 01-01-2023 Consult ---- -------- Attestation signed by Angela Smith MD at 01/01/2023 11:08 PM I performed a history and physical examination [...] 01/01/2023 BP 125/50 Pulse 106 Temp 37.2 ?C (99 ?F) Resp (!) 28 Ht 5' 2 (1.575 m) Wt 172 lb (78 kg) SpO2 100% BMI 31.46 kg/m? Obese, intubated, arousable, not in distress, RRR, [...] coordination of care as documented in note. -------- Department of Internal Medicine Division of Endocrinology, Diabetes, & Metabolism Endocrinology Note Patient Name: Lacy Alvarado : 1950 AGE: 72 y.o. Room[facility]Bed: [facility] A Admission Date: 01/01/2023 Visit Date: 01/01/2023 Reason for Endocrine Consult: post op heart Provider/Team Requesting Consult: cts PCP: MAYDA GARCIA Outpt Bottle Booth Attendant: No ASSESSMENT: Cad s/p Cabgx4 Dm2 with hyperglycemia without long-term insulin Stress hyperglycemia Chf Hld/htn PLAN: Continue [...] 97 Resp: 16 15 21 Temp: 36.4 ?C (97.6 ?F) (!) 35.6 ?C (96 ?F) TempSrc: Temporal Temporal SpO2: 100% 98% Weight: 78 kg (172 lb) 78 kg (172 lb) Height: 1.575 m (5' 2) 1.575 m (5' 2) Physical Exam Vitals and nursing note reviewed. [...] (Coreg) 12.5 MG tablet Oral, 2 times dana (more content not included)... Normal [facility] Consult ---- -------- Attestation signed by Carlos Chavarria DO at 01/01/2023 2:48 PM I have personally performed a [id number] diagnostic evaluation on this patient on date of service 01/01/23 . History, labs, imaging studies, and electronic medical record have been reviewed by me. This note documented by the []boiler house inspector [x]SONYA reflects my history, exam, and medical [...] air leak in CTs No Pacer wires -------- [facility]: Critical Care Consultation Note Date: 01/01/23 PATIENT NAME: Lacy Alvarado : 1950 (72 y.o.) Reason for Consult: Critical Care & Vent Management HPI: Lacy Alvarado is a 72 y.o. female was referred to us by Dr. Bhanu Milian. Patient was admitted on 12/18/22 to [facility] with CP history of CHF, CAD, DM [...] Patient not taking: Reported on 01/01/2023 12/24/22 Kassy Tabares APRN - AROMATHERAPIST traMADol (Ultram) 50 MG tablet Take 50 mg by mouth. 11/28/21 Historical Provider, Surgery Hand Off: Arrival Time in [facility]U: 1115 Complications/Pertinent Events: Last Paralytic: Medications given in route: Gtts OR report Propofol: 50 Insulin: 1 Amicar: 29 Current gtts upon arrival Propofol:50 Insulin: 1 Amicar: 29 Devices (more content not included)... Normal [facility] FibrinogenOrdered By: Stephania dunlap on 01-01-2023 Fibrinogen Coag (PPP) [Mass/Vol] 149 mg/dL Low 200 - 400 mg/dL [facility] Fibrinogen Coag (PPP) [Mass/ Vol]Ordered By: Stephania Cummings on 01-01-2023 Interpretation and review of laboratory results Abnormal [facility] Hemoglobin (Bld) [Mass/Vol]O rdered By: Lety Decker on 01-01-2023 Hematocrit (Bld) [Volume fraction] 26.8 % Low 35.0 - 47.0 % [facility] Interpretation and review of laboratory results Abnormal [facility] Hemoglobin and hematocrit, b loodOrdered By: Lety Decker on 01-01-2023 Hemoglobin (Bld) [Mass/Vol] 9.1 g/dL Low 11.7 - 16.0 g/dL [facility] Magnesiumon 01-01-2023 Magnesium [Mass/Vol] 3.4 mg/dL High 1.6 - 2 .3 mg/dL [facility] No Panel Informationon 01-01 Blood Expiration Date [id number] [facility] Crossmatch interpretation COMP [facility] Dispense Status Transfused [facility] Product Blood Type 5100 [facility] PRODUCT CODE [id number] [facility] Unit ABO O [facility] RH Positive [facility] Volume 300 mL [facility] Interpretation and review of laboratory results Abnormal [facility] POCT glucose meteron 023 Glucose [Mass/Vol] 141 mg/dL High 70 - 100 mg/dL [facility] Interpretation and review of laboratory results Abnormal [facility] Performed by: [facility], [address] [place] [address] CLIA ID: [id number] [facility] Glucose [Mass/Vol] 148 mg/dL High 70 - 100 mg/dL [facility] Interpretation and review of laboratory results Abnormal [facility] Performed by: [facility], [address] [place] [address] CLIA ID: [id number] [facility] Glucose [Mass/Vol] 138 mg/dL High 70 - 100 mg/dL [facility] Interpretation and review of laboratory results Abnormal [facility] Performed by: [facility], [address] [place] [address] CLIA ID: [id number] [facility] Glucose [Mass/Vol] 121 mg/dL High 70 - 100 mg/dL [facility] Interpretation and review of laboratory results Abnormal [facility] Performed by: [facility], [address] [place] [address] CLIA ID: [id number] [facility] Glucose [Mass/Vol] 142 mg/dL High 70 - 100 mg/dL [facility] Interpretation and review of laboratory results Abnormal [facility] Performed by: [facility], [address] [place] [address] CLIA ID: [id number] [facility] Glucose [Mass/Vol] 133 mg/dL High 70 - 100 mg/dL [facility] Interpretation and review of laboratory results Abnormal [facility] Performed by: [facility], [address] [place] [id number] CLIA ID: [id number] [facility] Glucose [Mass/Vol] 152 mg/dL High 70 - 100 mg/dL [facility] Interpretation and review of laboratory results Abnormal [facility] Performed by: [facility], [address] [place] [address] CLIA ID: [id number] [facility] Glucose [Mass/Vol] 170 mg/dL High 70 - 100 mg/dL [facility] Interpretation and review of laboratory results Abnormal [facility] Performed by: [facility], [address] [place] [address] CLIA ID: [id number] [facility] Glucose [Mass/Vol] 120 mg/dL High 70 - 100 mg/dL [facility] Interpretation and review of laboratory results Abnormal [facility] Performed by: [facility], [address] [place] [address] CLIA ID: [id number] [facility] Glucose [Mass/Vol] 84 mg/dL 70 - 100 mg/dL [facility] Interpretation and review of laboratory results Normal [facility] Performed by: [facility], [address] [place] [address] CLIA ID: [id number] [facility] Glucose [Mass/Vol] 82 mg/dL 70 - 100 mg/dL [facility] Interpretation and review of laboratory results Normal [facility] Performed by: [facility], [address] [place] [address] CLIA ID: [id number] [facility] Glucose [Mass/Vol] 101 mg/dL High 70 - 100 mg/dL [facility] Interpretation and review of laboratory results Abnormal [facility] Performed by: [facility], [address] [place] [address] CLIA ID: [id number] [facility] Glucose [Mass/Vol] 125 mg/dL High 70 - 100 mg/dL [facility] Interpretation and review of laboratory results Abnormal [facility] Performed by: [facility], [address] [place] [address] CLIA ID: [id number] [facility] PROTIME/INR & PTTon 01-02-20 aPTT Coag (PPP) [Time] 24.2 s 20.0 - 30.5 s [facility] INR Coag (PPP) [Relative time] 1.3 {INR} High 0.9 - 1.1 [facility] Comment on above: Recommended Anticoag ulant Therapy: SEE BELOW ----- INR of 2.0 - 3.0 : - Prophylaxis of Venous Thrombosis (high-risk surgery) - Treatment of Venous Thrombosis - Treatment of Pulmonary Embolism (Includes tissue heart valves, Acute Myocardial Infarction to prevent systemic embolism, Valvular Heart Disease, and Atrial Fibrillation) ----- INR of 2.5 - 3.5 : - Mechanical Prosthetic Valves (high risk) - If oral anticoagulant therapy is used to prevent Myocardial Infarction Interpretation and review of laboratory results Abnormal [facility] PT Coag (Bld) [Time] 14.0 s High 9.0 - 12.0 s [facility] Phosphate [Moles/Vol]on 12-04 Interpretation and review of laboratory results Normal [facility] Phosphate [Mass/Vol] 3.7 mg/dL 2.5 - 4 .5 mg/dL [facility] Prepare RBC: 2 Unitson 01-01 Unit Number [id number] [facility] Unit Number [id number] [facility] US Heart Transesophagealon 0 01-01-2023 Left Ventricle: Left ventricle size is normal. Normal wall thickness. Normal left ventricular systolic function. Normal wall motion. Right Ventricle: Right ventricle size is normal. Normal systolic function. Tricuspid Valve: Moderate (2+) regurgitation. Left Atrium: Left atrium is mildly dilated. Windsock appendage. Decreased appendage flow velocity. No left atrial appendage thrombus noted. No significant valvular abnormalities. Left Ventricle Left ventricle size is normal. Normal wall thickness. Normal left ventricular systolic function. Normal wall motion. Right Ventricle Right ventricle size is normal. Normal systolic function. Left Atrium Left atrium is mildly dilated. Windsock appendage. Decreased appendage flow velocity. No left atrial appendage thrombus noted. Right Atrium Right atrium size is normal. IVC/SVC IVC diameter is normal and decreases greater than 50% during inspiration; therefore the estimated right atrial pressure is normal (~3 mmHg). Mitral Valve Valve structure is normal. No regurgitation. No stenosis noted. Tricuspid Valve Valve structure is normal. Moderate (2+) regurgitation. Normal RVSP. Aortic Valve Trileaflet. No cusp thickening. No cusp calcification. No regurgitation. No stenosis. Pulmonic Valve Valve structure is normal. Trace regurgitation. Ascending Aorta Normal sized annulus, sinuses of Valsalva, ascending aorta, aortic arch and descending aorta. There is mild atherosclerosis in the descending aorta. Pericardium No pericardial effusion. Septum No interatrial shunt visualized on color Doppler. Pulmonary Artery Normal pulmonary arteries. Study Details Image quality: good. Images were obtained from the mid-esophageal, upper esophageal, transgastric, deep transgastric and descending thoracic view(s). Blood pressure: 159/102 mmHg. SIS probe number: 5. SIS probe was inserted by the anesthesiologist. No contrast was given. See anesthesia notes for medications given. Echo Additional Conclusions No significant valvular abnormalities. CV [facility] Linkyt XR CHEST 1 VIEWon 01-01-2023 XR CHEST 1 VIEW [facility] : 1950 [id number] Exam Date/Time: 01/01/2023 13:18 Procedure: XR CHEST 1 VIEW Ordering Provider: VILLAREAL MATTHEW Reason For Exam: POSTTRAUMATIC CHEST CONDITION CLINICAL INFORMATION: Status post thoracic surgery (CABG). CHEST X-RAY, PORTABLE, 1317: An AP portable view is compared to the PA and lateral examination of 12/29/2022. The projection is kyphotic. There are median sternotomy wires from interval thoracic surgery. The tip of an endotracheal tube is seen approximately 1.5 cm above the tracheal bifurcation. There is an endogastric tube with the tip beneath the inferior margin of the radiograph but beneath the hemidiaphragm. The side-port is not identified. There is a right internal jugular central venous catheter with the tip in the superior vena cava at the level of the hilum. There are mediastinal and left lower hemithorax chest tubes. There are limited lung volumes. There is no definite pleural effusion on either side. There is mild pulmonary vascular congestion. No focal consolidation or pneumothorax is seen. There is no gross abnormality of the mediastinum or cardiac silhouette. No pleural effusion, heart failure, infiltrate or pneumothorax is seen. IMPRESSION: 1. Status post thoracic surgery (CABG). 2. Line and tube placements as described. 3. Pulmonary vascular congestion without evidence of other acute cardiopulmonary process. Report Dictated on Electronically Signed By: Gómez Calvert MD Electronically Signed Date/Time: 01/01/2023 1:[address] [facility] XR Chest Single viewon 01-01 1. Status post thora cic surgery (CABG). 2. Line and tube placements as described. 3. Pulmonary vascular congestion without evidence of other acute cardiopulmonary process. Report Dictated on Electronically Signed By: Gómez Calvert MD Electronically Signed Date/Time: 01/01/2023 1:55 PM EDT [facility] Patient Name: LACY SAVAGE : 1950 Exam Date/Time: 01/01/2023 13:18 Procedure: XR CHEST 1 VIEW Ordering Provider: VILLAREAL MATTHEW Reason For Exam: POSTTRAUMATIC CHEST CONDITION CLINICAL INFORMATION: Status post thoracic surgery (CABG). CHEST X-RAY, PORTABLE, 1317: An AP portable view is compared to the PA and lateral examination of 12/29/2022. The projection is kyphotic. There are median sternotomy wires from interval thoracic surgery. The tip of an endotracheal tube is seen approximately 1.5 cm above the tracheal bifurcation. There is an endogastric tube with the tip beneath the inferior margin of the radiograph but beneath the hemidiaphragm. The side-port is not identified. There is a right internal jugular central venous catheter with the tip in the superior vena cava at the level of the hilum. There are mediastinal and left lower hemithorax chest tubes. There are limited lung volumes. There is no definite pleural effusion on either side. There is mild pulmonary vascular congestion. No focal consolidation or pneumothorax is seen. There is no gross abnormality of the mediastinum or cardiac silhouette. No pleural effusion, heart failure, infiltrate or pneumothorax is seen. [facility] Gómez Calvert MD - 01/01/2023 Patient Name: LACY ALVARADO : 1950 Exam Date/Time: 01/01/2023 13:18 Procedure: XR CHEST 1 VIEW Ordering Provider: VILLAREAL MATTHEW Reason For Exam: POSTTRAUMATIC CHEST CONDITION CLINICAL INFORMATION: Status post thoracic surgery (CABG). CHEST X-RAY, PORTABLE, 1317: An AP portable view is compared to the PA and lateral examination of 12/29/2022. The projection is kyphotic. There are median sternotomy wires from interval thoracic surgery. The tip of an endotracheal tube is seen approximately 1.5 cm above the tracheal bifurcation. There is an endogastric tube with the tip beneath the inferior margin of the radiograph but beneath the hemidiaphragm. The side-port is not identified. There is a right internal jugular central venous catheter with the tip in the superior vena cava at the level of the hilum. There are mediastinal and left lower hemithorax chest tubes. There are limited lung volumes. There is no definite pleural effusion on either side. There is mild pulmonary vascular congestion. No focal consolidation or pneumothorax is seen. There is no gross abnormality of the mediastinum or cardiac silhouette. No pleural effusion, heart failure, infiltrate or pneumothorax is seen. IMPRESSION: 1. Status post thoracic surgery (CABG). 2. Line and tube placements as described. 3. Pulmonary vascular congestion without evidence of other acute cardiopulmonary process. Report Dictated on Electronically Signed By: Gómez Calvert MD Electronically Signed Date/Time: 01/01/2023 1:55 PM EDT [facility] Radiology Study observation (narrative) [facility] [employer] XR Chest Single viewOrdered By: Gómez Calvert on 01-01-2023 [employer] Work Phone: ECG 12-LEADon 12-30-2022 ECG 12-LEAD IMPRESSION: Sinus rhythm Probable left atrial enlargement Electronically Signed On 12-30-2022 8:43:39 EDT by Chris Kenny [facility] XR CHEST 2 VIEWSon 3 XR CHEST 2 VIEWS Patient Name: LACY SAVAGE : 1950 Exam Date/Time: 12/29/2022 15:44 Procedure: XR CHEST 2 VIEWS Ordering Provider: ROSE ERIC Reason For Exam: preoperative clearance CLINICAL INFORMATION: Preoperative chest x-ray for unspecified surgery. Chest x-ray, PA and lateral: PA and lateral views without prior examination for comparison demonstrates no abnormality of the mediastinum or cardiac silhouette. No pleural effusion, vascular congestion, focal consolidation or pneumothorax is seen. IMPRESSION: No evidence of acute cardiopulmonary process. Report Dictated on Electronically Signed By: Gómez Calvert MD Electronically Signed Date/Time: 12/30/2022 11:52 AM EDT [facility] PREPROCINSon 12-29-2022 PREPROCINS Medication List Accurate as of December 29, 2022 2:50 PM. Always use your most recent med list. aspirin 81 MG EC tablet Notes to patient: DO NOT TAKE MORNING OF SURGERY atorvastatin 80 MG tablet Commonly known as: Lipitor Notes to patient: DO NOT TAKE MORNING OF SURGERY calcium citrate 950 (200 Ca) MG tablet Commonly known as: Calcitrate Notes to patient: DO NOT TAKE MORNING OF SURGERY carvedilol 12.5 MG tablet Commonly known as: Coreg Notes to patient: DO NOT TAKE MORNING OF SURGERY clopidogrel 75 MG tablet Commonly known as: Plavix Notes to patient: DO NOT TAKE PRIOR TO SURGERY divalproex 500 MG EC tablet Commonly known as: Depakote Notes to patient: DO NOT TAKE MORNING OF SURGERY DULoxetine [address] capsule Commonly known as: Cymbalta Notes to patient: DO NOT TAKE MORNING OF SURGERY hydroxychloroquine 200 MG tablet Commonly known as: Plaquenil Notes to patient: DO NOT TAKE MORNING OF SURGERY isosorbide mononitrate ER 60 MG 24 hr tablet Commonly known as: Imdur Notes to patient: DO NOT TAKE MORNING OF SURGERY losartan 50 MG tablet Commonly known as: Cozaar Notes to patient: DO NOT TAKE MORNING OF SURGERY multivitamin capsule Notes to patient: DO NOT TAKE MORNING OF SURGERY mupirocin 2 % ointment Commonly known as: Bactroban Apply liberal amount per nostril the night before surgery and then again the morning of surgery pantoprazole 40 MG EC tablet Commonly known as: ProtoNix Notes to patient: DO NOT TAKE MORNING OF SURGERY polyethylene glycol (PEG) 3350 17 g packet Commonly known as: Miralax Notes to patient: DO NOT TAKE MORNING OF SURGERY SITagliptin 100 MG tablet Commonly known as: Januvia Notes to patient: DO NOT TAKE MORNING OF SURGERY traMADol 50 MG tablet Commonly known as: Ultram Notes to patient: DO NOT TAKE MORNING OF SURGERY Do not eat after midnight. You may have clear liquids up to two hours prior to your surgery. NO MEDICATIONS MORNING OF SURGERY Follow instructions on use of shower kit, nasal ointment and mouth rinse as instructed. After showering no makeup,lotion,powder or body spray. No hair products. Remove all jewelry and leave it at home. Do not wear contacts day of surgery. Special Instructions: BRING CPAP, WATER WILL BE PROVIDED FOR YOUR MACHINE If you have specific questions, please call your surgeon. SENIOR [employer] ENTER BUILDING AT THE MAIN ENTRANCE. TAKE THE H ELEVATOR TO THE FIRST FLOOR, TURN LEFT OFF THE ELEVATOR AND GO TO THE SAME DAY SURGERY REGISTRATION DESK TO CHECK IN [facility] 36on 12-26-2022 36 Pre op teaching done with patient. Instructed to hold NSAIDS except Aspirin 7 days prior to surgery, hold Plavix 7 days prior to surgery, and not to take any medications day of surgery. Pharmacy confirmed. All questions answered. [facility] 36on 12-24-2022 36 Called spoke with patient, all questions answered [facility] 36 Surg proc orders michael patience, medications e-scribed - talked to patient, answered all questions. [facility] 36on 12-23-2022 36 Patient is scheduled for CABG on 01/01. Patient lives on the third floor and asking if she is able to climb all those stairs right after surgery? Please advise [phone] [facility] Office Visiton 12-23-2022 Follow-up visit [id number] Villagomez 1950 F Date Provider Department Center 12/23/2022 [id number] ROSE [facility] None No family history on file Level of Service:81013 [place] OFFICE/OUTPATIENT [facility] 60-74 MINUTES Reason for Visit and Comments: New Patient [542] [facility] Progress Noteon 12-23-2022 Progress Note [facility] [address] [facility] [address] Dept: [phone] Dept Loc: [phone] Visit type: New Reason for Visit: Multivessel [...] Milian. Patient was admitted on 12/18/22 to [facility] with CP. Per notes, patient has a [...] 12/18/22 Cardiac Cath Diagnostic 09/20/2018 CT Abdomen (more content not included)... Normal [facility] Glucose Glucometer (BldC) [M ass/Vol]Ordered By: Edwin Kaplan on 12-19-2022 Glucose [Mass/Vol] 101 mg/dL 74-106 [facility] Comment on above: MANAGEMENT OF PATIEN T CARE PER NURSING PROTOCOL Absolute lymphocyte countOrd ered By: Turner Armendariz on 12-18-2022 Lymphocytes Auto (Unsp spec) [#/Vol] 2.22 10*3/uL 0.83-4.51 [facility] Basophil percentageOrdered B y: Turner Armendariz on 12-18-2022 Basophil percentage 144 mg/dL 74-[address] [facility] Basophil percentage 141 mmol/L 136-[address] [facility] Basophil percentage 4.0 mmol/L 3.5-5.[address] [facility] Basophil percentage 108 mmol/L 98-[address] [facility] Basophils (Bld) [#/Vol] 4.9 10*3/uL 4.4-11.0 [facility] Basophils (Bld) [#/Vol] 2.2 10*3/uL 2.0-7.7 [facility] Basophils/100 WBC (Bld) 0.4 % 0-1 [facility] Basophils/100 WBC (Bld) 43.9 % 47-70 [facility] Basophils/100 WBC (Bld) 2.4 % 0-5 [facility] Chloride [Moles/Vol] 108 mmol/L 98-107 [facility] Eosinophils/100 WBC (Bld) 2.4 % 0-5 [facility] Glucose [Mass/Vol] 144 mg/dL 74-106 [facility] Comment on above: Fasting Glucose resu lt greater than or equal to 126 mg/dL suggests DIABETES MELLITUS per A.D.A. criteria. Neutrophils (Bld) [#/Vol] 2.2 10*3/uL 2.0-7.7 [facility] Neutrophils/100 WBC (Bld) 43.9 % 47-70 [facility] Potassium [Moles/Vol] 4.0 mmol/L 3.5-5.1 [facility] Sodium [Moles/Vol] 141 mmol/L 136-145 [facility] WBC (Bld) [#/Vol] 4.9 10*3/uL 4.4-11.0 [facility] Blood erythrocytes count (nu mber/volume)Ordered By: Turner Armendariz on 12-18-2022 RBC (Bld) [#/Vol] 3.32 10*6/uL 4.2-5.[address] [facility] Blood hemoglobin measurement (mass/volume)Ordered By: Turner Armendariz on 12-18-2022 Hemoglobin (Bld) [Mass/Vol] 10.8 g/dL 12.0-15.0 [facility] Blood lymphocytes/100 leukoc ytesOrdered By: Turner Armendariz on 12-18-2022 Lymphocytes/100 WBC (Bld) 45.0 % 19-41 [facility] Blood monocytes/100 leukocyt esOrdered By: Turner Armendariz on 12-18-2022 Monocytes/100 WBC (Bld) 8.1 % 0-10 [facility] Blood platelet mean volumeOr dered By: Turner Armendariz on 12-18-2022 Platelet mean volume (Bld) [Entitic vol] 10.7 fL 6.2-12.0 [facility] Determination of erythrocyte mean corpuscular volume (MCV)Ordered By: Turner Armendariz on 12-18-2022 MCV (RBC) [Entitic vol] 99.1 fL 81-99 [facility] Hematocrit Auto (Bld) [Volum e fraction]Ordered By: Turner Armendariz on 12-18-2022 Hematocrit (Bld) [Volume fraction] 32.9 % 37-47 [facility] INR in Blood by Coagulation assayOrdered By: Jossue Boyd on 12-18-2022 INR Coag (Bld) [Relative time] 1.0 {INR} [facility] Laboratory - Chemistry and C hemistry - challengeOrdered By: Turner Armendariz on 12-18-2022 CO2 [Moles/Vol] 29.0 mmol/L 21.0-32.0 [facility] Urea nitrogen/Creatinine [Mass ratio] 27.6 mg/mg 10-20 [facility] Laboratory - CoagulationOrde red By: Jossue Boyd on 12-18-2022 aPTT Coag (Bld) [Time] 27.4 s 24.1-36.2 [facility] PT Coag (PPP) [Time] 12.8 s 11.7-14.9 [facility] Laboratory - Hematology and Cell countsOrdered By: Turner Armendariz on 12-18-2022 Erythrocyte distribution width (RBC) [Entitic vol] 50.8 fL 35.1-43.9 [facility] Erythrocyte distribution width (RBC) [Ratio] 13.9 % 11.6-14.6 [facility] Immature granulocytes/100 WBC (Bld) 0.200 % 0.0-0.9 [facility] Comment on above: IG% - Immature Granu locytes (promyelocytes, myelocytes and metamyelocytes) > 1% indicates that a LEFT SHIFT is Present. MCH (RBC) [Entitic mass] 32.5 pg 27.0-32.0 [facility] Nucleated RBC/100 WBC (Bld) [Ratio] 0 % 0-5 [facility] MCHC Auto (RBC) [Mass/Vol]Or dered By: Turner Armendariz on 12-18-2022 MCHC (RBC) [Mass/Vol] 32.8 g/dL 32-36 [facility] No Panel InformationOrdered By: Edwin Kaplan on 12-18-2022 Troponin I High Sensitivity 5 pg/mL 3.0-54.0 [facility] Comment on above: Please Note: New Gina t Units and Gender Specific Reference Ranges. For more information see Policy Stat Procedure [place] High Sensitivity Troponin (TNIH) and attachments. 5 pg/mL 3.0-54.0 [facility] No Panel InformationOrdered By: Turner Armendariz on 12-18-2022 Troponin I High Sensitivity 5 pg/mL 3.0-54.0 [facility] Comment on above: Please Note: New Gina t Units and Gender Specific Reference Ranges. For more information see Policy Stat Procedure [place] High Sensitivity Troponin (TNIH) and attachments. D-Dimer Quantitative (PE/DVT) 0.31 FEU/ug/m 0.27-0.49 [facility] Comment on above: NORMAL D-Dimer level (<0.50) indicates no DVT or PE. Estimated Creatinine Clearance Calc 71.34 ml/min [facility] Estimated GFR (MDRD) Amer 79 mL/min >60 [facility] Comment on above: GFR Calc Estimated GFR (MDRD) Non-Af Amer 65 mL/min >60 [facility] Comment on above: Non- GFR Calc 32.5 pg 27.0-32.0 [facility] 13.9 % 11.6-14.6 [facility] 50.8 fl 35.1-43.9 [facility] 0.200 % 0.0-0.9 [facility] 0 % 0-5 [facility] 0.31 FEU/ug/m 0.27-0.49 [facility] 65 mL/min >60 [facility] 79 mL/min >60 [facility] 71.34 ml/min [facility] 27.6 RATIO 10-20 [facility] 29.0 mmol/L 21.0-32.0 [facility] No Panel InformationOrdered By: Jossue Boyd on 12-18-2022 12.8 SECONDS 11.7-14.9 [facility] 27.4 Seconds 24.1-36.2 [facility] Platelets bldOrdered By: Rem us Ungdavid on 12-18-2022 Platelets (Bld) [#/Vol] 183 10*3/uL 150-450 [facility] Serum or plasma calcium loretta urement (mass/volume)Ordered By: Remus Ungur on 12-18-2022 Calcium [Mass/Vol] 8.5 mg/dL 8.5-10.1 [facility] Serum or plasma creatinine m easurement (mass/volume)Ordered By: Remus Ungur on 12-18-2022 Creatinine [Mass/Vol] 0.90 mg/dL 0.55-1.02 [facility] Comment on above: The validity of the calculated GFR & GFRAA in patients over 70 years has not been determined. Clinical correlation is essential. Serum or plasma urea nitroge n measurement (mass/volume)Ordered By: Turner Armendariz on 12-18-2022 Urea nitrogen [Mass/Vol] 25 mg/dL 7-18 [facility] Thin prep Papanicolaou smear with manual screeningOrdered By: Turner Armenadriz on 12-18-2022 Thin prep Papanicolaou smear with manual screening 4 5-15 [facility] Laboratory - Hematology and Cell countson 12-11-2022 HbA1c (Bld) [Mass fraction] 6.6 % 4.2-6.3 [facility] No Panel Informationon 12-11 6.6 % 4.2-6.3 [facility] Basophil percentageOrdered B y: Dr. Garcia on 10-01-2022 Chloride [Moles/Vol] 113 mmol/L 98-107 [facility] Glucose [Mass/Vol] 114 mg/dL 74-106 [facility] Comment on above: Fasting Glucose resu lt from 100 to 125 mg/dL suggests IMPAIRED HOMEOSTASIS per A.D.A. criteria. Potassium [Moles/Vol] 3.8 mmol/L 3.5-5.1 [facility] Sodium [Moles/Vol] 144 mmol/L 136-145 [facility] Laboratory - Chemistry and C hemistry - challengeOrdered By: Dr. Garcia on 10-01-2022 CO2 [Moles/Vol] 25.0 mmol/L 21.0-32.0 [facility] Urea nitrogen/Creatinine [Mass ratio] 26.3 mg/mg 10-20 [facility] No Panel InformationOrdered By: Dr. Garcia on 10-01-2022 Estimated GFR (MDRD) Amer 92 mL/min >60 [facility] Comment on above: GFR Calc Estimated GFR (MDRD) Non-Af Amer 76 mL/min >60 [facility] Comment on above: Non- GFR Calc Valproic Acid (Depakene) Level 36 ug/mL 50-100 [facility] Serum or plasma calcium loretta urement (mass/volume)Ordered By: Dr. Garcia on 10-01-2022 Calcium [Mass/Vol] 8.6 mg/dL 8.5-10.1 [facility] Serum or plasma creatinine m easurement (mass/volume)Ordered By: Dr. Garcia on 10-01-2022 Creatinine [Mass/Vol] 0.80 mg/dL 0.55-1.02 [facility] Comment on above: The validity of the calculated GFR & GFRAA in patients over 70 years has not been determined. Clinical correlation is essential. Serum or plasma urea nitroge n measurement (mass/volume)Ordered By: Dr. Garcia on 10-01-2022 Urea nitrogen [Mass/Vol] 21 mg/dL 7-18 [facility] Thin prep Papanicolaou smear with manual screeningOrdered By: Dr. Garcia on 10-01-2022 Thin prep Papanicolaou smear with manual screening 6 5-15 [facility] Whole blood hemoglobin A1c/t otal hemoglobin ratio (mass fraction)Ordered By: Dr. Garcia on 10-01-2022 HbA1c (Bld) [Mass fraction] 7.0 % 3.8-5.6 [facility] Comment on above: Normal < 5.7 % Predi abetic 5.7 - 6.4 % Diabetic >or= 6.5 % Please note range changes. Absolute lymphocyte countOrd ered By: Dr. Freeman on 08-13-2022 Lymphocytes Auto (Unsp spec) [#/Vol] 2.73 10*3/uL 0.83-4.51 [facility] Basophil percentageOrdered B y: Dr. Freeman on 08-13-2022 Basophils/100 WBC (Bld) 0.6 % 0-1 [facility] Bilirubin [Mass/Vol] 0.20 mg/dL 0.20-1.00 [facility] Comment on above: For patients on eltr ombopag therapy, use of Dimension [place] TBIL is not recommended. Chloride [Moles/Vol] 114 mmol/L 98-107 [facility] Eosinophils/100 WBC (Bld) 2.1 % 0-5 [facility] Glucose [Mass/Vol] 143 mg/dL 74-106 [facility] Comment on above: Fasting Glucose resu lt greater than or equal to 126 mg/dL suggests DIABETES MELLITUS per A.D.A. criteria. Neutrophils (Bld) [#/Vol] 2.8 10*3/uL 2.0-7.7 [facility] Neutrophils/100 WBC (Bld) 45.6 % 47-70 [facility] Potassium [Moles/Vol] 3.7 mmol/L 3.5-5.1 [facility] Protein [Mass/Vol] 7.6 g/dL 6.4-8.2 [facility] Sodium [Moles/Vol] 140 mmol/L 136-145 [facility] WBC (Bld) [#/Vol] 6.2 10*3/uL 4.4-11.0 [facility] Blood erythrocytes count (nu mber/volume)Ordered By: Dr. Freeman on 08-13-2022 RBC (Bld) [#/Vol] 4.08 10*6/uL 4.2-5.[address] [facility] Blood hemoglobin measurement (mass/volume)Ordered By: Dr. Freeman on 08-13-2022 Hemoglobin (Bld) [Mass/Vol] 12.8 g/dL 12.0-15.0 [facility] Blood lymphocytes/100 leukoc ytesOrdered By: Dr. Freeman on 08-13-2022 Lymphocytes/100 WBC (Bld) 44.1 % 19-41 [facility] Blood monocytes/100 leukocyt esOrdered By: Dr. Freeman on 08-13-2022 Monocytes/100 WBC (Bld) 7.4 % 0-10 [facility] Blood platelet mean volumeOr dered By: Dr. Freeman on 08-13-2022 Platelet mean volume (Bld) [Entitic vol] 10.6 fL 6.2-12.0 [facility] Determination of erythrocyte mean corpuscular volume (MCV)Ordered By: Dr. Freeman on 08-13-2022 MCV (RBC) [Entitic vol] 99.3 fL 81-99 [facility] Hematocrit Auto (Bld) [Volum e fraction]Ordered By: Dr. Freeman on 08-13-2022 Hematocrit (Bld) [Volume fraction] 40.5 % 37-47 [facility] Laboratory - Chemistry and C hemistry - challengeOrdered By: Dr. Freeman on 08-13-2022 ALP [Catalytic activity/Vol] 103 U/L 45-117 [facility] ALT [Catalytic activity/Vol] 32 U/L 13-56 [facility] CO2 [Moles/Vol] 22.0 mmol/L 21.0-32.0 [facility] Globulin (S) [Mass/Vol] 4.0 g/dL 2.2-4.2 [facility] Urea nitrogen/Creatinine [Mass ratio] 18.8 mg/mg 10-20 [facility] Laboratory - Hematology and Cell countsOrdered By: Dr. Freeman on 08-13-2022 Erythrocyte distribution width (RBC) [Entitic vol] 49.6 fL 35.1-43.9 [facility] Erythrocyte distribution width (RBC) [Ratio] 13.5 % 11.6-14.6 [facility] Immature granulocytes/100 WBC (Bld) 0.200 % 0.0-0.9 [facility] Comment on above: IG% - Immature Granu locytes (promyelocytes, myelocytes and metamyelocytes) > 1% indicates that a LEFT SHIFT is Present. MCH (RBC) [Entitic mass] 31.4 pg 27.0-32.0 [facility] Nucleated RBC/100 WBC (Bld) [Ratio] 0 % 0-5 [facility] MCHC Auto (RBC) [Mass/Vol]Or dered By: Dr. Freeman on 08-13-2022 MCHC (RBC) [Mass/Vol] 31.6 g/dL 32-36 [facility] No Panel InformationOrdered By: Dr. Freeman on 08-13-2022 Estimated Creatinine Clearance Calc 41.58 ml/min [facility] Estimated GFR (MDRD) Amer 70 mL/min >60 [facility] Comment on above: GFR Calc Estimated GFR (MDRD) Non-Af Amer 58 mL/min >60 [facility] Comment on above: Non- GFR Calc Valproic Acid (Depakene) Level 38 ug/mL 50-100 [facility] Platelets bldOrdered By: Dr. Freeman on 08-13-2022 Platelets (Bld) [#/Vol] 207 10*3/uL 150-450 [facility] Serum or plasma albumin loretta urement (mass/volume)Ordered By: Dr. Freeman on 08-13-2022 Albumin [Mass/Vol] 3.6 g/dL 3.2-5.0 [facility] Serum or plasma albumin/glob ulin mass ratioOrdered By: Dr. Freeman on 08-13-2022 Albumin/Globulin [Mass ratio] 0.9 {ratio} 0.9-2.4 [facility] Serum or plasma calcium loretta urement (mass/volume)Ordered By: Dr. Freeman on 08-13-2022 Calcium [Mass/Vol] 8.5 mg/dL 8.5-10.1 [facility] Serum or plasma creatinine m easurement (mass/volume)Ordered By: Dr. Freeman on 08-13-2022 Creatinine [Mass/Vol] 1.01 mg/dL 0.55-1.02 [facility] Comment on above: The validity of the calculated GFR & GFRAA in patients over 70 years has not been determined. Clinical correlation is essential. Serum or plasma urea nitroge n measurement (mass/volume)Ordered By: Dr. Freeman on 08-13-2022 Urea nitrogen [Mass/Vol] 19 mg/dL 7-18 [facility] Thin prep Papanicolaou smear with manual screeningOrdered By: Dr. Freeman on 08-13-2022 Thin prep Papanicolaou smear with manual screening 28 U/L 15-37 [facility] Thin prep Papanicolaou smear with manual screening 4 5-15 [facility] Laboratory - Hematology and Cell countson 06-30-2022 HbA1c (Bld) [Mass fraction] 6.8 % 4.2-6.3 [facility] Culture, urineOrdered By: Dr Yoko Chan on 06-07-2022 Bacteria identified Cx Nom (U) Mixed Gram Pos & Gram Neg Org [facility] Absolute lymphocyte countOrd ered By: Dr. Chan on 06-06-2022 Lymphocytes Auto (Unsp spec) [#/Vol] 1.11 10*3/uL 0.83-4.51 [facility] Basophil percentageOrdered B y: Dr. Chan on 06-06-2022 Basophil percentage 0 SEEN /hpf 0-5 [facility] Basophils/100 WBC (Bld) 0.4 % 0-1 [facility] Bilirubin [Mass/Vol] 0.30 mg/dL 0.20-1.00 [facility] Comment on above: For patients on eltr ombopag therapy, use of Dimension [place] TBIL is not recommended. Chloride [Moles/Vol] 107 mmol/L 98-107 [facility] Eosinophils/100 WBC (Bld) 1.5 % 0-5 [facility] Glucose [Mass/Vol] 117 mg/dL 74-106 [facility] Comment on above: Fasting Glucose resu lt from 100 to 125 mg/dL suggests IMPAIRED HOMEOSTASIS per A.D.A. criteria. Neutrophils (Bld) [#/Vol] 4.0 10*3/uL 2.0-7.7 [facility] Neutrophils/100 WBC (Bld) 72.8 % 47-70 [facility] Potassium [Moles/Vol] 4.2 mmol/L 3.5-5.1 [facility] Protein [Mass/Vol] 7.9 g/dL 6.4-8.2 [facility] Sodium [Moles/Vol] 142 mmol/L 136-145 [facility] WBC (Bld) [#/Vol] 5.4 10*3/uL 4.4-11.0 [facility] Bilirubin Test strip Ql (U)O rdered By: Dr. Chan on 06-06-2022 Bilirubin Ql (U) Negative Negative [facility] Blood erythrocytes count (nu mber/volume)Ordered By: Dr. Chan on 06-06-2022 RBC (Bld) [#/Vol] 3.83 10*6/uL 4.2-5.[address] [facility] Blood hemoglobin measurement (mass/volume)Ordered By: Dr. Chan on 06-06-2022 Hemoglobin (Bld) [Mass/Vol] 11.9 g/dL 12.0-15.0 [facility] Blood lymphocytes/100 leukoc ytesOrdered By: Dr. Chan on 06-06-2022 Lymphocytes/100 WBC (Bld) 20.4 % 19-41 [facility] Blood monocytes/100 leukocyt esOrdered By: Dr. Chan on 06-06-2022 Monocytes/100 WBC (Bld) 4.0 % 0-10 [facility] Blood platelet mean volumeOr dered By: Dr. Chan on 06-06-2022 Platelet mean volume (Bld) [Entitic vol] 10.1 fL 6.2-12.0 [facility] Determination of erythrocyte mean corpuscular volume (MCV)Ordered By: Dr. Chan on 06-06-2022 MCV (RBC) [Entitic vol] 96.6 fL 81-99 [facility] Hematocrit Auto (Bld) [Volum e fraction]Ordered By: Dr. Chan on 06-06-2022 Hematocrit (Bld) [Volume fraction] 37.0 % 37-47 [facility] Ketones Test strip Ql (U)Ord ered By: Dr. Chan on 06-06-2022 Ketones Ql (U) 15 mg/dl Negative [facility] Laboratory - Chemistry and C hemistry - challengeOrdered By: Dr. Chan on 06-06-2022 ALP [Catalytic activity/Vol] 88 U/L 45-117 [facility] ALT [Catalytic activity/Vol] 28 U/L 13-56 [facility] CO2 [Moles/Vol] 26.0 mmol/L 21.0-32.0 [facility] Globulin (S) [Mass/Vol] 4.4 g/dL 2.2-4.2 [facility] Urea nitrogen/Creatinine [Mass ratio] 29.2 mg/mg 10-20 [facility] Laboratory - Hematology and Cell countsOrdered By: Dr. Chan on 06-06-2022 Erythrocyte distribution width (RBC) [Entitic vol] 48.0 fL 35.1-43.9 [facility] Erythrocyte distribution width (RBC) [Ratio] 13.3 % 11.6-14.6 [facility] Immature granulocytes/100 WBC (Bld) 0.900 % 0.0-0.9 [facility] Comment on above: IG% - Immature Granu locytes (promyelocytes, myelocytes and metamyelocytes) > 1% indicates that a LEFT SHIFT is Present. MCH (RBC) [Entitic mass] 31.1 pg 27.0-32.0 [facility] Nucleated RBC/100 WBC (Bld) [Ratio] 0 % 0-5 [facility] MCHC Auto (RBC) [Mass/Vol]Or dered By: Dr. Chan on 06-06-2022 MCHC (RBC) [Mass/Vol] 32.2 g/dL 32-36 [facility] Mucus LM Ql (Urine sed)Order ed By: Dr. Chan on 06-06-2022 Mucus Ql (Urine sed) 0 SEEN /hpf [facility] Nitrite Test strip Ql (U)Ord ered By: Dr. Chan on 06-06-2022 Nitrite Ql (U) Negative Negative [facility] No Panel InformationOrdered By: Dr. Chan on 06-06-2022 Troponin I High Sensitivity 14 pg/mL 3.0-54.0 [facility] Comment on above: Please Note: New Gina t Units and Gender Specific Reference Ranges. For more information see Policy Stat Procedure [place] High Sensitivity Troponin (TNIH) and attachments. Estimated Creatinine Clearance Calc 39.62 ml/min [facility] Estimated GFR (MDRD) Amer 66 mL/min >60 [facility] Comment on above: GFR Calc Estimated GFR (MDRD) Non-Af Amer 55 mL/min >60 [facility] Comment on above: Non- GFR Calc Valproic Acid (Depakene) Level 62 ug/mL 50-100 [facility] Platelets bldOrdered By: Dr. Chan on 06-06-2022 Platelets (Bld) [#/Vol] 248 10*3/uL 150-450 [facility] Protein Test strip Ql (U)Ord ered By: Dr. Chan on 06-06-2022 Protein Ql (U) 15 mg/dl Negative [facility] Serum or plasma albumin loretta urement (mass/volume)Ordered By: Dr. Chan on 06-06-2022 Albumin [Mass/Vol] 3.5 g/dL 3.2-5.0 [facility] Serum or plasma albumin/glob ulin mass ratioOrdered By: Dr. Chan on 06-06-2022 Albumin/Globulin [Mass ratio] 0.8 {ratio} 0.9-2.4 [facility] Serum or plasma calcium loretta urement (mass/volume)Ordered By: Dr. Chan on 06-06-2022 Calcium [Mass/Vol] 9.1 mg/dL 8.5-10.1 [facility] Serum or plasma creatinine m easurement (mass/volume)Ordered By: Dr. Chan on 06-06-2022 Creatinine [Mass/Vol] 1.06 mg/dL 0.55-1.02 [facility] Comment on above: The validity of the calculated GFR & GFRAA in patients over 70 years has not been determined. Clinical correlation is essential. Serum or plasma urea nitroge n measurement (mass/volume)Ordered By: Dr. Chan on 06-06-2022 Urea nitrogen [Mass/Vol] 31 mg/dL 7-18 [facility] Squamous epithelial cells de tection in urine sediment by light microscopyOrdered By: Dr. Chan on 06-06-2022 Epithelial cells.squamous LM Ql (Urine sed) 0-5 SEEN /hpf 5-10 [facility] Thin prep Papanicolaou smear with manual screeningOrdered By: Dr. Chan on 06-06-2022 Thin prep Papanicolaou smear with manual screening 16 U/L 15-37 [facility] Thin prep Papanicolaou smear with manual screening 9 5-15 [facility] Urine blood detectionOrdered By: Dr. Chan on 06-06-2022 RBC Ql (U) Negative Negative [facility] RBC Ql (U) 0 SEEN /hpf 0-5 [facility] Urine clarityOrdered By: Dr. Chan on 06-06-2022 Clarity (U) Clear Clear [facility] Urine color determinationOrd ered By: Dr. Chan on 06-06-2022 Color (U) Yellow Yellow [facility] Urine glucose detectionOrder ed By: Dr. Chan on 06-06-2022 Glucose Ql (U) Normal mg/dl Normal [facility] Urine leukocyte esterase det ection by dipstickOrdered By: Dr. Chan on 06-06-2022 Leukocyte esterase Test strip Ql (U) 100 /ul Negative [facility] Urine pHOrdered By: Dr. Chan o n 06-06-2022 pH (U) 6.0 [pH] 5.0 - 8.0 [facility] Urine sediment bacteria coun t by microscopy (number/high power field)Ordered By: Dr. Chan on 06-06-2022 Bacteria LM.HPF (Urine sed) [#/Area] 0 /[HPF] None Seen [facility] Urine specific gravity measu rementOrdered By: Dr. Chan on 06-06-2022 Specific gravity (U) [Rel density] 1.020 1.002-1.030 [facility] Urobilinogen Auto test strip Ql (U)Ordered By: Dr. Chan on 06-06-2022 Urobilinogen Ql (U) Normal mg/dl Normal [facility] Laboratory - Microbiology an d Antimicrobial susceptibilityOrdered By: Dr. Garcia on 05-06-2022 SARS-CoV-2 (COVID-19) RNA GERONIMO+probe Ql (Unsp spec) Not detected Not Detect [facility] Comment on above: Normal Reference Ran ge: Not DetectedMethod:(RT-PCR) real-time reverse transcriptase PCRLuminex ELIZABETH Instrument*The Food and Drug Administration (FDA) has issued an Emergency Use Authorization (EAU) for the eSKY.pl SARS-CoV-2 Assay for the rapid detection of the virus that causes COVID-19. This test has been validated, but the FDAs independent review of this validation is pending.*Negative results do not preclude infection and should not be used as the sole basis for treatment or patient management. Optimum specimen types and timing for peak viral levels during infections caused by SARS-CoV-2 have not been determined. Collection of multiple specimens from the same patient may be necessary to detect the virus. The possibility of a false negative result should be considered if the patient has clinical presentation or has had recent exposure. Absolute lymphocyte countOrd ered By: Dr. Garcia on 03-14-2022 Lymphocytes Auto (Unsp spec) [#/Vol] 1.49 10*3/uL 0.83-4.51 [facility] Basophil percentageOrdered B y: Dr. Garcia on 03-14-2022 Basophil percentage 0 SEEN /hpf 0-5 [facility] Basophils/100 WBC (Bld) 0.3 % 0-1 [facility] Bilirubin [Mass/Vol] 0.30 mg/dL 0.20-1.00 [facility] Comment on above: For patients on eltr ombopag therapy, use of Dimension [place] TBIL is not recommended. Chloride [Moles/Vol] 108 mmol/L 98-107 [facility] Eosinophils/100 WBC (Bld) 1.5 % 0-5 [facility] Glucose [Mass/Vol] 125 mg/dL 74-106 [facility] Comment on above: Fasting Glucose resu lt from 100 to 125 mg/dL suggests IMPAIRED HOMEOSTASIS per A.D.A. criteria. Lactate [Moles/Vol] 3.2 mmol/L 0.4-2.[address] [facility] Comment on above: Critical Result(s) C alled at: 18:20:28 03/14/2022 by: tommy PHILLIPS RN ED. Results read back by same. Neutrophils (Bld) [#/Vol] 4.0 10*3/uL 2.0-7.7 [facility] Neutrophils/100 WBC (Bld) 66.8 % 47-70 [facility] Potassium [Moles/Vol] 4.1 mmol/L 3.5-5.1 [facility] Protein [Mass/Vol] 7.5 g/dL 6.4-8.2 [facility] Sodium [Moles/Vol] 141 mmol/L 136-145 [facility] WBC (Bld) [#/Vol] 6.0 10*3/uL 4.4-11.0 [facility] Bilirubin Test strip Ql (U)O rdered By: Dr. Garcia on 03-14-2022 Bilirubin Ql (U) Negative Negative [facility] Blood erythrocytes count (nu mber/volume)Ordered By: Dr. Garcia on 03-14-2022 RBC (Bld) [#/Vol] 3.71 10*6/uL 4.2-5.[address] [facility] Blood hemoglobin measurement (mass/volume)Ordered By: Dr. Garcia on 03-14-2022 Hemoglobin (Bld) [Mass/Vol] 11.6 g/dL 12.0-15.0 [facility] Blood lymphocytes/100 leukoc ytesOrdered By: Dr. Garcia on 03-14-2022 Lymphocytes/100 WBC (Bld) 24.8 % 19-41 [facility] Blood monocytes/100 leukocyt esOrdered By: Dr. Garcia on 03-14-2022 Monocytes/100 WBC (Bld) 6.3 % 0-10 [facility] Blood platelet mean volumeOr dered By: Dr. Garcia on 03-14-2022 Platelet mean volume (Bld) [Entitic vol] 9.9 fL 6.2-12.0 [facility] Determination of erythrocyte mean corpuscular volume (MCV)Ordered By: Dr. Garcia on 03-14-2022 MCV (RBC) [Entitic vol] 96.2 fL 81-99 [facility] Hematocrit Auto (Bld) [Volum e fraction]Ordered By: Dr. Garcia on 03-14-2022 Hematocrit (Bld) [Volume fraction] 35.7 % 37-47 [facility] Ketones Test strip Ql (U)Ord ered By: Dr. Garcia on 03-14-2022 Ketones Ql (U) 15 mg/dl Negative [facility] Laboratory - Chemistry and C hemistry - challengeOrdered By: Dr. Garcia on 03-14-2022 ALP [Catalytic activity/Vol] 84 U/L 45-117 [facility] ALT [Catalytic activity/Vol] 32 U/L 13-56 [facility] CO2 [Moles/Vol] 25.0 mmol/L 21.0-32.0 [facility] Globulin (S) [Mass/Vol] 4.2 g/dL 2.2-4.2 [facility] Urea nitrogen/Creatinine [Mass ratio] 22.6 mg/mg 10-20 [facility] Laboratory - Hematology and Cell countsOrdered By: Dr. Garcia on 03-14-2022 Erythrocyte distribution width (RBC) [Entitic vol] 47.1 fL 35.1-43.9 [facility] Erythrocyte distribution width (RBC) [Ratio] 13.2 % 11.6-14.6 [facility] Immature granulocytes/100 WBC (Bld) 0.300 % 0.0-0.9 [facility] Comment on above: IG% - Immature Granu locytes (promyelocytes, myelocytes and metamyelocytes) > 1% indicates that a LEFT SHIFT is Present. MCH (RBC) [Entitic mass] 31.3 pg 27.0-32.0 [facility] Nucleated RBC/100 WBC (Bld) [Ratio] 0 % 0-5 [facility] MCHC Auto (RBC) [Mass/Vol]Or dered By: Dr. Garcia on 03-14-2022 MCHC (RBC) [Mass/Vol] 32.5 g/dL 32-36 [facility] Mucus LM Ql (Urine sed)Order ed By: Dr. Garcia on 03-14-2022 Mucus Ql (Urine sed) 0 SEEN /hpf [facility] Nitrite Test strip Ql (U)Ord ered By: Dr. Garcia on 03-14-2022 Nitrite Ql (U) Negative Negative [facility] No Panel InformationOrdered By: Dr. Garcia on 03-14-2022 Estimated Creatinine Clearance Calc 45.15 ml/min [facility] Estimated GFR (MDRD) Amer 77 mL/min >60 [facility] Comment on above: GFR Calc Estimated GFR (MDRD) Non-Af Amer 64 mL/min >60 [facility] Comment on above: Non- GFR Calc Troponin I High Sensitivity 18 pg/mL 3.0-54.0 [facility] Comment on above: Please Note: New Gina t Units and Gender Specific Reference Ranges. For more information see Policy Stat Procedure [place] High Sensitivity Troponin (TNIH) and attachments. Valproic Acid (Depakene) Level 42 ug/mL 50-100 [facility] Platelets bldOrdered By: Dr. Garcia on 03-14-2022 Platelets (Bld) [#/Vol] 233 10*3/uL 150-450 [facility] Protein Test strip Ql (U)Ord ered By: Dr. Garcia on 03-14-2022 Protein Ql (U) 15 mg/dl Negative [facility] Serum or plasma albumin loretta urement (mass/volume)Ordered By: Dr. Garcia on 03-14-2022 Albumin [Mass/Vol] 3.3 g/dL 3.2-5.0 [facility] Serum or plasma albumin/glob ulin mass ratioOrdered By: Dr. Garcia on 03-14-2022 Albumin/Globulin [Mass ratio] 0.8 {ratio} 0.9-2.4 [facility] Serum or plasma calcium loretta urement (mass/volume)Ordered By: Dr. Garcia on 03-14-2022 Calcium [Mass/Vol] 9.2 mg/dL 8.5-10.1 [facility] Serum or plasma creatinine m easurement (mass/volume)Ordered By: Dr. Garcia on 03-14-2022 Creatinine [Mass/Vol] 0.93 mg/dL 0.55-1.02 [facility] Comment on above: The validity of the calculated GFR & GFRAA in patients over 70 years has not been determined. Clinical correlation is essential. Serum or plasma urea nitroge n measurement (mass/volume)Ordered By: Dr. Garcia on 03-14-2022 Urea nitrogen [Mass/Vol] 21 mg/dL 7-18 [facility] Squamous epithelial cells de tection in urine sediment by light microscopyOrdered By: Dr. Garcia on 03-14-2022 Epithelial cells.squamous LM Ql (Urine sed) 0-5 SEEN /hpf 5-10 [facility] Thin prep Papanicolaou smear with manual screeningOrdered By: Dr. Garcia on 03-14-2022 Thin prep Papanicolaou smear with manual screening 21 U/L 15-37 [facility] Thin prep Papanicolaou smear with manual screening 8 5-15 [facility] Urine blood detectionOrdered By: Dr. Garcia on 03-14-2022 RBC Ql (U) Negative Negative [facility] RBC Ql (U) 0 SEEN /hpf 0-5 [facility] Urine clarityOrdered By: Dr. Garcia on 03-14-2022 Clarity (U) Clear Clear [facility] Urine color determinationOrd ered By: Dr. Garcia on 03-14-2022 Color (U) Yellow Yellow [facility] Urine glucose detectionOrder ed By: Dr. Garcia on 03-14-2022 Glucose Ql (U) Normal mg/dl Normal [facility] Urine leukocyte esterase det ection by dipstickOrdered By: Dr. Garcia on 03-14-2022 Leukocyte esterase Test strip Ql (U) Negative Negative [facility] Urine pHOrdered By: Dr. Jonathan ryan on 03-14-2022 pH (U) 7.0 [pH] 5.0 - 8.0 [facility] Urine sediment bacteria coun t by microscopy (number/high power field)Ordered By: Dr. Garcia on 03-14-2022 Bacteria LM.HPF (Urine sed) [#/Area] 0 /[HPF] None Seen [facility] Urine specific gravity measu rementOrdered By: Dr. Garcia on 03-14-2022 Specific gravity (U) [Rel density] 1.015 1.002-1.030 [facility] Urobilinogen Auto test strip Ql (U)Ordered By: Dr. Garcia on 03-14-2022 Urobilinogen Ql (U) Normal mg/dl Normal [facility] Absolute lymphocyte counton 01-10-2022 Lymphocytes Auto (Unsp spec) [#/Vol] 1.45 10*3/uL 0.83-4.51 [facility] Work Phone: Basophil percentageon 2021 Basophils/100 WBC (Bld) 0.3 % 0-1 [facility] Work Phone: Bilirubin [Mass/Vol] 0.50 mg/dL 0.20-1.00 [facility] Work Phone: Comment on above: For patients on eltr ombopag therapy, use of Dimension [place] TBIL is not recommended. Chloride [Moles/Vol] 106 mmol/L 98-107 [facility] Work Phone: Cholesterol [Mass/Vol] 195 mg/dL <200 [facility] Work Phone: Comment on above: <200 mg/dL Desirable 200-240 mg/dL Borderline >240 mg/dL High Risk Eosinophils/100 WBC (Bld) 2.9 % 0-5 [facility] Work Phone: Glucose [Mass/Vol] 124 mg/dL 74-106 [facility] Work Phone: Comment on above: Fasting Glucose resu lt from 100 to 125 mg/dL suggests IMPAIRED HOMEOSTASIS per A.D.A. criteria. Neutrophils (Bld) [#/Vol] 2.0 10*3/uL 2.0-7.7 [facility] Work Phone: Neutrophils/100 WBC (Bld) 52.1 % 47-70 [facility] Work Phone: Potassium [Moles/Vol] 4.1 mmol/L 3.5-5.1 [facility] Work Phone: Protein [Mass/Vol] 7.8 g/dL 6.4-8.2 [facility] Work Phone: Sodium [Moles/Vol] 141 mmol/L 136-145 [facility] Work Phone: Triglyceride [Mass/Vol] 92 mg/dL <199 [facility] Work Phone: Comment on above: The drugs N-Acetylcy steine and Metamizole may falsely depress this assay.Serum Triglycerides Reference Interval Normal <150 mg/dL Borderline high 150 - 199 mg/dL High 200 - 499 mg/dL Very High > or = 500 mg/dL WBC (Bld) [#/Vol] 3.8 10*3/uL 4.4-11.0 [facility] Work Phone: Blood erythrocytes count (nu mber/volume)on 01-10-2022 RBC (Bld) [#/Vol] 3.90 10*6/uL 4.2-5.[address] [facility] Work Phone: Blood hemoglobin measurement (mass/volume)on 01-10-2022 Hemoglobin (Bld) [Mass/Vol] 12.5 g/dL 12.0-15.0 [facility] Work Phone: Blood lymphocytes/100 leukoc yteson 01-10-2022 Lymphocytes/100 WBC (Bld) 37.9 % 19-41 [facility] Work Phone: Blood monocytes/100 leukocyt eson 01-10-2022 Monocytes/100 WBC (Bld) 6.5 % 0-10 [facility] Work Phone: Blood platelet mean volumeon 01-10-2022 Platelet mean volume (Bld) [Entitic vol] 11.1 fL 6.2-12.0 [facility] Work Phone: Determination of erythrocyte mean corpuscular volume (MCV)on 01-10-2022 MCV (RBC) [Entitic vol] 96.4 fL 81-99 [facility] Work Phone: Hematocrit Auto (Bld) [Volum e fraction]on 01-10-2022 Hematocrit (Bld) [Volume fraction] 37.6 % 37-47 [facility] Work Phone: Laboratory - Chemistry and C hemistry - challengeon 01-10-2022 ALP [Catalytic activity/Vol] 87 U/L 45-117 [facility] Work Phone: ALT [Catalytic activity/Vol] 28 U/L 13-56 [facility] Work Phone: CO2 [Moles/Vol] 29.0 mmol/L 21.0-32.0 [facility] Work Phone: Globulin (S) [Mass/Vol] 4.2 g/dL 2.2-4.2 [facility] Work Phone: Urea nitrogen/Creatinine [Mass ratio] 22.6 mg/mg 10-20 [facility] Work Phone: Laboratory - Hematology and Cell countson 01-10-2022 Erythrocyte distribution width (RBC) [Entitic vol] 48.9 fL 35.1-43.9 [facility] Work Phone: Erythrocyte distribution width (RBC) [Ratio] 13.7 % 11.6-14.6 [facility] Work Phone: Immature granulocytes/100 WBC (Bld) 0.300 % 0.0-0.9 [facility] Work Phone: Comment on above: IG% - Immature Granu locytes (promyelocytes, myelocytes and metamyelocytes) > 1% indicates that a LEFT SHIFT is Present. MCH (RBC) [Entitic mass] 32.1 pg 27.0-32.0 [facility] Work Phone: Nucleated RBC/100 WBC (Bld) [Ratio] 0 % 0-5 [facility] Work Phone: MCHC Auto (RBC) [Mass/Vol]on 01-10-2022 MCHC (RBC) [Mass/Vol] 33.2 g/dL 32-36 [facility] Work Phone: No Panel Informationon 01-10 Estimated GFR (MDRD) Amer 77 mL/min >60 [facility] Work Phone: Comment on above: GFR Calc Estimated GFR (MDRD) Non-Af Amer 64 mL/min >60 [facility] Work Phone: Comment on above: Non- GFR Calc Urine Microalbumin/Creatinine Ratio 7.3 mg/g CRE <30 [facility] Work Phone: Platelets bldon 01-10-2022 Platelets (Bld) [#/Vol] 210 10*3/uL 150-450 [facility] Work Phone: Serum or plasma albumin loretta urement (mass/volume)on 01-10-2022 Albumin [Mass/Vol] 3.6 g/dL 3.2-5.0 [facility] Work Phone: Serum or plasma albumin/glob ulin mass ratioon 01-10-2022 Albumin/Globulin [Mass ratio] 0.9 {ratio} 0.9-2.4 [facility] Work Phone: Serum or plasma calcium loretta urement (mass/volume)on 01-10-2022 Calcium [Mass/Vol] 9.6 mg/dL 8.5-10.1 [facility] Work Phone: Serum or plasma cholesterol in HDL measurement (mass/volume)on 01-10-2022 Cholesterol in HDL [Mass/Vol] 53 mg/dL >40 [facility] Work Phone: Comment on above: The drugs N-Acetylcy steine and Metamizole may falsely depress this assay. Reference Range HDL <40 mg/dL Low HDL Cholesterol HDL >or= 60 mg/dL High HDL Cholesterol Serum or plasma cholesterol in VLDL measurement (mass/volume)on 01-10-2022 Cholesterol in VLDL [Mass/Vol] 18 mg/dL 5-40 [facility] Work Phone: Serum or plasma creatinine m easurement (mass/volume)on 01-10-2022 Creatinine [Mass/Vol] 0.93 mg/dL 0.55-1.02 [facility] Work Phone: Comment on above: The validity of the calculated GFR & GFRAA in patients over 70 years has not been determined. Clinical correlation is essential. Serum or plasma low density lipoprotein (LDL) cholesterol measurement (mass/volume)on 01-10-2022 Cholesterol in LDL [Mass/Vol] 124 mg/dL 0-130 [facility] Work Phone: Serum or plasma urea nitroge n measurement (mass/volume)on 01-10-2022 Urea nitrogen [Mass/Vol] 21 mg/dL 7-18 [facility] Work Phone: Thin prep Papanicolaou smear with manual screeningon 01-10-2022 Thin prep Papanicolaou smear with manual screening 17 U/L 15-37 [facility] Work Phone: Thin prep Papanicolaou smear with manual screening 6 5-15 [facility] Work Phone: Thin prep Papanicolaou smear with manual screening 22.4 mg/L NO RANGE EST. [facility] Work Phone: Urine creatinine measurement (mass/volume)on 01-10-2022 Creatinine (U) [Mass/Vol] 308.00 mg/dL NO RANGE EST. [facility] Work Phone: Whole blood hemoglobin A1c/t otal hemoglobin ratio (mass fraction)on 01-10-2022 HbA1c (Bld) [Mass fraction] 7.3 % 3.8-5.6 [facility] Work Phone: Comment on above: Normal < 5.7 % Predi abetic 5.7 - 6.4 % Diabetic >or= 6.5 % Please note range changes. Absolute lymphocyte counton 01-03-2022 Lymphocytes Auto (Unsp spec) [#/Vol] 2.28 10*3/uL 0.83-4.51 [facility] Work Phone: Basophil percentageon 2021 Basophils/100 WBC (Bld) 0.6 % 0-1 [facility] Work Phone: Bilirubin [Mass/Vol] 0.20 mg/dL 0.20-1.00 [facility] Work Phone: Comment on above: For patients on eltr ombopag therapy, use of Dimension [place] TBIL is not recommended. Chloride [Moles/Vol] 110 mmol/L 98-107 [facility] Work Phone: Eosinophils/100 WBC (Bld) 3.1 % 0-5 [facility] Work Phone: Glucose [Mass/Vol] 154 mg/dL 74-106 [facility] Work Phone: Comment on above: Fasting Glucose resu lt greater than or equal to 126 mg/dL suggests DIABETES MELLITUS per A.D.A. criteria. Neutrophils (Bld) [#/Vol] 2.2 10*3/uL 2.0-7.7 [facility] Work Phone: Neutrophils/100 WBC (Bld) 44.8 % 47-70 [facility] Work Phone: [phone] Potassium [Moles/Vol] 3.8 mmol/L 3.5-5.1 [facility] Work Phone: Protein [Mass/Vol] 6.0 g/dL 6.4-8.2 [facility] Work Phone: Sodium [Moles/Vol] 141 mmol/L 136-145 [facility] Work Phone: WBC (Bld) [#/Vol] 4.9 10*3/uL 4.4-11.0 [facility] Work Phone: [phone] Blood erythrocytes count (nu mber/volume)on 01-03-2022 RBC (Bld) [#/Vol] 3.20 10*6/uL 4.2-5.[address] [facility] Work Phone: Blood hemoglobin measurement (mass/volume)on 01-03-2022 Hemoglobin (Bld) [Mass/Vol] 10.1 g/dL 12.0-15.0 [facility] Work Phone: [phone] Blood lymphocytes/100 leukoc yteson 01-03-2022 Lymphocytes/100 WBC (Bld) 46.4 % 19-41 [facility] Work Phone: Blood monocytes/100 leukocyt eson 01-03-2022 Monocytes/100 WBC (Bld) 4.9 % 0-10 [facility] Work Phone: Blood platelet mean volumeon 01-03-2022 Platelet mean volume (Bld) [Entitic vol] 10.8 fL 6.2-12.0 [facility] Work Phone: Determination of erythrocyte mean corpuscular volume (MCV)on 01-03-2022 MCV (RBC) [Entitic vol] 97.2 fL 81-99 [facility] Work Phone: Glucose Glucometer (BldC) [M ass/Vol]on 01-03-2022 Glucose [Mass/Vol] 107 mg/dL 74-106 [facility] Work Phone: Comment on above: MANAGEMENT OF PATIEN T CARE PER NURSING PROTOCOL Hematocrit Auto (Bld) [Volum e fraction]on 01-03-2022 Hematocrit (Bld) [Volume fraction] 31.1 % 37-47 [facility] Work Phone: Laboratory - Chemistry and C hemistry - challengeon 01-03-2022 ALP [Catalytic activity/Vol] 83 U/L 45-117 [facility] Work Phone: ALT [Catalytic activity/Vol] 23 U/L 13-56 [facility] Work Phone: CO2 [Moles/Vol] 26.0 mmol/L 21.0-32.0 [facility] Work Phone: Globulin (S) [Mass/Vol] 3.4 g/dL 2.2-4.2 [facility] Work Phone: Urea nitrogen/Creatinine [Mass ratio] 22.9 mg/mg 10-20 [facility] Work Phone: Laboratory - Hematology and Cell countson 01-03-2022 Erythrocyte distribution width (RBC) [Entitic vol] 48.3 fL 35.1-43.9 [facility] Work Phone: Erythrocyte distribution width (RBC) [Ratio] 13.4 % 11.6-14.6 [facility] Work Phone: Immature granulocytes/100 WBC (Bld) 0.200 % 0.0-0.9 [facility] Work Phone: Comment on above: IG% - Immature Granu locytes (promyelocytes, myelocytes and metamyelocytes) > 1% indicates that a LEFT SHIFT is Present. MCH (RBC) [Entitic mass] 31.6 pg 27.0-32.0 [facility] Work Phone: Nucleated RBC/100 WBC (Bld) [Ratio] 0 % 0-5 [facility] Work Phone: MCHC Auto (RBC) [Mass/Vol]on 01-03-2022 MCHC (RBC) [Mass/Vol] 32.5 g/dL 32-36 [facility] Work Phone: No Panel Informationon 01-03 Estimated Creatinine Clearance Calc 50.59 ml/min [facility] Work Phone: Estimated GFR (MDRD) Amer 88 mL/min >60 [facility] Work Phone: Comment on above: GFR Calc Estimated GFR (MDRD) Non-Af Amer 73 mL/min >60 [facility] Work Phone: Comment on above: Non- GFR Calc Platelets bldon 01-03-2022 Platelets (Bld) [#/Vol] 181 10*3/uL 150-450 [facility] Work Phone: Serum or plasma albumin loretta urement (mass/volume)on 01-03-2022 Albumin [Mass/Vol] 2.6 g/dL 3.2-5.0 [facility] Work Phone: Serum or plasma albumin/glob ulin mass ratioon 01-03-2022 Albumin/Globulin [Mass ratio] 0.8 {ratio} 0.9-2.4 [facility] Work Phone: Serum or plasma calcium loretta urement (mass/volume)on 01-03-2022 Calcium [Mass/Vol] 8.0 mg/dL 8.5-10.1 [facility] Work Phone: Serum or plasma creatinine m easurement (mass/volume)on 01-03-2022 Creatinine [Mass/Vol] 0.83 mg/dL 0.55-1.02 [facility] Work Phone: Comment on above: The validity of the calculated GFR & GFRAA in patients over 70 years has not been determined. Clinical correlation is essential. Serum or plasma urea nitroge n measurement (mass/volume)on 01-03-2022 Urea nitrogen [Mass/Vol] 19 mg/dL 7-18 [facility] Work Phone: Thin prep Papanicolaou smear with manual screeningon 01-03-2022 Thin prep Papanicolaou smear with manual screening 15 U/L 15-37 [facility] Work Phone: Thin prep Papanicolaou smear with manual screening 5 5-15 [facility] Work Phone: No Panel Informationon 01-02 Troponin I High Sensitivity 5 pg/mL 3.0-54.0 [facility] Work Phone: Comment on above: Please Note: New Gina t Units and Gender Specific Reference Ranges. For more information see Policy Stat Procedure [place] High Sensitivity Troponin (TNIH) and attachments. D-Dimer Quantitative (PE/DVT) 0.57 FEU/ug/m 0.27-0.49 [facility] Work Phone: Comment on above: D-Dimer ELEVATED (>0 .49): Additional studies and clinicalassessments are indicated to conclude diagnosis of:Deep Vein Thrombosis (DVT) or Pulmonary Embolism (PE)CRITICAL VALUE VERIFIED. CALLED TO NIDIA COLLINS (ER)01/02/22 [id number] Mynor James.RESULTS READ BACK BY SAME. Basophil percentageon 2021 Basophil percentage 0-5 SEEN /hpf 0-5 [facility] Work Phone: Bilirubin Test strip Ql (U)o n 12-17-2021 Bilirubin Ql (U) Negative Negative [facility] Work Phone: Ketones Test strip Ql (U)on 12-17-2021 Ketones Ql (U) Negative Negative [facility] Work Phone: Mucus LM Ql (Urine sed)on Mucus Ql (Urine sed) RARE /hpf [facility] Work Phone: Nitrite Test strip Ql (U)on 12-17-2021 Nitrite Ql (U) Negative Negative [facility] Work Phone: Protein Test strip Ql (U)on 12-17-2021 Protein Ql (U) Negative Negative [facility] Work Phone: Squamous epithelial cells de tection in urine sediment by light microscopyon 12-17-2021 Epithelial cells.squamous LM Ql (Urine sed) 0-5 SEEN /hpf 5-10 [facility] Work Phone: Urine blood detectionon 12-02 RBC Ql (U) Negative Negative [facility] Work Phone: RBC Ql (U) 0 SEEN /hpf 0-5 [facility] Work Phone: Urine clarityon 12-17-2021 Clarity (U) Clear Clear [facility] Work Phone: Urine color determinationon 12-17-2021 Color (U) Yellow Yellow [facility] Work Phone: Urine glucose detectionon Glucose Ql (U) Normal mg/dl Normal [facility] Work Phone: Urine leukocyte esterase det ection by dipstickon 12-17-2021 Leukocyte esterase Test strip Ql (U) 100 /ul Negative [facility] Work Phone: Urine pHon 12-17-2021 pH (U) 8.0 [pH] 5.0 - 8.0 [facility] Work Phone: Urine sediment bacteria coun t by microscopy (number/high power field)on 12-17-2021 Bacteria LM.HPF (Urine sed) [#/Area] 1 /[HPF] None Seen [facility] Work Phone: Urine specific gravity measu rementon 12-17-2021 Specific gravity (U) [Rel density] 1.015 1.002-1.030 [facility] Work Phone: Urobilinogen Auto test strip Ql (U)on 12-17-2021 Urobilinogen Ql (U) 1 mg/dl Normal [facility] Work Phone: Laboratory - Hematology and Cell countson 11-06-2021 HbA1c (Bld) [Mass fraction] 7.2 % 4.2-6.3 [facility] Work Phone: Absolute lymphocyte counton 10-25-2021 Lymphocytes Auto (Unsp spec) [#/Vol] 2.55 10*3/uL 0.83-4.51 [facility] Work Phone: Basophil percentageon 2021 Basophils/100 WBC (Bld) 0.5 % 0-1 [facility] Work Phone: Bilirubin [Mass/Vol] 0.20 mg/dL 0.20-1.00 [facility] Work Phone: Comment on above: For patients on eltr ombopag therapy, use of Dimension [place] TBIL is not recommended. Chloride [Moles/Vol] 105 mmol/L 98-107 [facility] Work Phone: Eosinophils/100 WBC (Bld) 2.1 % 0-5 [facility] Work Phone: Glucose [Mass/Vol] 188 mg/dL 74-106 [facility] Work Phone: Comment on above: Fasting Glucose resu lt greater than or equal to 126 mg/dL suggests DIABETES MELLITUS per A.D.A. criteria. Neutrophils (Bld) [#/Vol] 3.5 10*3/uL 2.0-7.7 [facility] Work Phone: Neutrophils/100 WBC (Bld) 52.9 % 47-70 [facility] Work Phone: Potassium [Moles/Vol] 4.0 mmol/L 3.5-5.1 [facility] Work Phone: Protein [Mass/Vol] 7.6 g/dL 6.4-8.2 [facility] Work Phone: Sodium [Moles/Vol] 138 mmol/L 136-145 [facility] Work Phone: WBC (Bld) [#/Vol] 6.6 10*3/uL 4.4-11.0 [facility] Work Phone: Blood erythrocytes count (nu mber/volume)on 10-25-2021 RBC (Bld) [#/Vol] 4.16 10*6/uL 4.2-5.4 [facility] Work Phone: Blood hemoglobin measurement (mass/volume)on 10-25-2021 Hemoglobin (Bld) [Mass/Vol] 13.0 g/dL 12.0-15.0 [facility] Work Phone: Blood lymphocytes/100 leukoc yteson 10-25-2021 Lymphocytes/100 WBC (Bld) 38.4 % 19-41 [facility] Work Phone: Blood monocytes/100 leukocyt eson 10-25-2021 Monocytes/100 WBC (Bld) 5.9 % 0-10 [facility] Work Phone: Blood platelet mean volumeon 10-25-2021 Platelet mean volume (Bld) [Entitic vol] 10.6 fL 6.2-12.0 [facility] Work Phone: Determination of erythrocyte mean corpuscular volume (MCV)on 10-25-2021 MCV (RBC) [Entitic vol] 95.4 fL 81-99 [facility] Work Phone: Hematocrit Auto (Bld) [Volum e fraction]on 10-25-2021 Hematocrit (Bld) [Volume fraction] 39.7 % 37-47 [facility] Work Phone: Laboratory - Chemistry and C hemistry - challengeon 10-25-2021 ALP [Catalytic activity/Vol] 92 U/L 45-117 [facility] Work Phone: ALT [Catalytic activity/Vol] 33 U/L 13-56 [facility] Work Phone: CO2 [Moles/Vol] 27.0 mmol/L 21.0-32.0 [facility] Work Phone: Globulin (S) [Mass/Vol] 4.1 g/dL 2.2-4.2 [facility] Work Phone: Lipase [Catalytic activity/Vol] 89 U/L 73-393 [facility] Work Phone: Urea nitrogen/Creatinine [Mass ratio] 20.7 mg/mg 10-20 [facility] Work Phone: Laboratory - Hematology and Cell countson 10-25-2021 Erythrocyte distribution width (RBC) [Entitic vol] 46.5 fL 35.1-43.9 [facility] Work Phone: Erythrocyte distribution width (RBC) [Ratio] 13.1 % 11.6-14.6 [facility] Work Phone: Immature granulocytes/100 WBC (Bld) 0.200 % 0.0-0.9 [facility] Work Phone: Comment on above: IG% - Immature Granu locytes (promyelocytes, myelocytes and metamyelocytes) > 1% indicates that a LEFT SHIFT is Present. MCH (RBC) [Entitic mass] 31.3 pg 27.0-32.0 [facility] Work Phone: Nucleated RBC/100 WBC (Bld) [Ratio] 0 % 0-5 [facility] Work Phone: MCHC Auto (RBC) [Mass/Vol]on 10-25-2021 MCHC (RBC) [Mass/Vol] 32.7 g/dL 32-36 [facility] Work Phone: No Panel Informationon 10-25 Estimated Creatinine Clearance Calc 46.29 ml/min [facility] Work Phone: Estimated GFR (MDRD) Amer 78 mL/min >60 [facility] Work Phone: Comment on above: GFR Calc Estimated GFR (MDRD) Non-Af Amer 64 mL/min >60 [facility] Work Phone: Comment on above: Non- GFR Calc Troponin I High Sensitivity < 3 pg/mL 3.0-54.0 [facility] Work Phone: Comment on above: Please Note: New Gina t Units and Gender Specific Reference Ranges. For more information see Policy Stat Procedure [place] High Sensitivity Troponin (TNIH) and attachments. Platelets bldon 10-25-2021 Platelets (Bld) [#/Vol] 223 10*3/uL 150-450 [facility] Work Phone: Serum or plasma albumin loretta urement (mass/volume)on 10-25-2021 Albumin [Mass/Vol] 3.5 g/dL 3.2-5.0 [facility] Work Phone: Serum or plasma albumin/glob ulin mass ratioon 10-25-2021 Albumin/Globulin [Mass ratio] 0.9 {ratio} 0.9-2.4 [facility] Work Phone: Serum or plasma calcium loretta urement (mass/volume)on 10-25-2021 Calcium [Mass/Vol] 9.1 mg/dL 8.5-10.1 [facility] Work Phone: Serum or plasma creatinine m easurement (mass/volume)on 10-25-2021 Creatinine [Mass/Vol] 0.92 mg/dL 0.55-1.02 [facility] Work Phone: Comment on above: The validity of the calculated GFR & GFRAA in patients over 70 years has not been determined. Clinical correlation is essential. Serum or plasma urea nitroge n measurement (mass/volume)on 10-25-2021 Urea nitrogen [Mass/Vol] 19 mg/dL 7-18 [facility] Work Phone: Thin prep Papanicolaou smear with manual screeningon 10-25-2021 Thin prep Papanicolaou smear with manual screening 22 U/L 15-37 [facility] Work Phone: Thin prep Papanicolaou smear with manual screening 6 5-15 [facility] Work Phone: PROGRESSon 06-03-2018 Protein mass conc HNO ID: [id number] Author: Tila (Pt) Jenelle Service: (none) Author Type: Physical Therapist Type: Progress Notes Filed: 06/03/2018 12:16 PM Note Text: 06/03/2018 [facility] PHYSICAL THERAPY DISCONTINUANCE OF CARE Plan of Care Period: Start of Care Date: 01/05/18 Last Visit Date: 02/25/18 Therapy Program: The following is a summary of the interventions provided for this episode of care; Therapeutic exercise, Neuromuscular re-education, Manual therapy, Patient/Family/Caregiver Education and Modalities: Ultrasound Assessment: The following is the goal status: Goals updated on 02/04/2018. [place] in home exercise program.--MET for current HEP [...] Walking and Moving Around: G8979 0% impaired Based on the most recent progress report, patient was progressing as expected toward functional goals based on home exercise program compliance, pain levels, documented subjective information on progress and documented objective information regarding gait and overall function. Reason for Discontinuation of Care: Patient has not returned to therapy or scheduled additional follow-up appointments. SARAH [facility] CNTHERAPYon 02-25-2018 CNTHERAPY OT/PT/Speech Visit (PTWS) -------- LACY ALVARADO ([id number]) 1950 F Date Time Provider Department 02/25/18 7:00 AM TILA ALMANZAR (PT) PTWS Date Time Provider Department Center 02/25/2018 7:00 AM [id number], DIANA (PT)PTWS [facility] [place] Reason for Visit: Physical Therapy [503] PT Discharge [752] Reason For Visit History Recorded Primary Visit Diagnosis:Tendonitis, Achilles, right [M76.61] Other [...] CAPSULE,MANDIE* Take 1 capsule by mouth twice* [id number] NIRU * Use 3 Drops in the left [...] TABLET Take one(1) tablet daily. Progress Notes: Tila Almanzar PT 02/28/2018 11:35 AM Signed Episode Visit Count: 11 Therapist That Will Oversee The Plan Of Care: Tila Almanzar PT Start of Care Date: 01/05/18 [...] needs. Patient response monitored throughout treatment. Billing: [facility]: Therapeutic Exercise (42860): 1:1 time: 36 minutes (2 units: 23-37 mins) Modalities Ultrasound (50926) 1:1 time: 8 minutes1 unit: 8-22 mins Total time: 44 minutes Tila Almanzar, PT Tila Almanzar, PT 06/03/2018 12:16 PM Signed 06/03/2018 [facility] PHYSICAL THERAPY DISCONTINUANCE OF CARE Plan of Care Period: Start of Care Date: 01/05/18 Last Visit Date: 02/25/18 Therapy Program: The following is a summary of the interventions provided for this episode of care; Therapeutic exercise, Neuromuscular re-education, Manual therapy, Patient/Family/Caregiver Education and Modalities: Ultrasound Assessment: The following is the goal status: Goals updated on 02/04/2018. [place] in home exercise program.--MET for current HEP [...] Walking and Moving Around: G8979 0% impaired Based on the most recent progress report, patient was progressing as expected toward functional goals based on home exercise program compliance, pain levels, documented subjective information on progress and documented objective information regarding gait and overall function. Reason for Discontinuation of Care: Patient has not returned to therapy or scheduled additional follow-up appointments. Tila Almanzar PT -------- [facility] PROGRESSon 02-25-2018 Protein mass conc HNO ID: [id number] Author: Tila (PtJeanie Almanzar Service: (none) Author Type: Physical Therapist Type: Progress Notes Filed: 02/28/2018 11:35 AM Note Text: Episode Visit Count: 11 Therapist That Will Oversee The Plan Of Care: Tila Almanzar PT Start of Care Date: 01/05/18 [...] needs. Patient response monitored throughout treatment. Billing: [facility]: Therapeutic Exercise (33823): 1:1 time: 36 minutes (2 units: 23-37 mins) Modalities Ultrasound (23028) 1:1 time: 8 minutes1 unit: 8-22 mins Total time: 44 minutes Tila Almanzar PT [facility] CNOVon 02-22-2018 CNOV Office Visit (PODIWS ) -------- LACY ALVARADO ([id number]) 1950 F Date Time Provider Department 02/22/18 7:40 AM MYNOR FLORES During your visit today, [...] comment (PT,) Patient presents to f/u on Tere Randhawa. She continues with 10/10 pain that comes [...] several Duration Units: Years Frequency: Intermittent Intervention: Relaxation;Reposition;Me dication;Other: See comment PT, Hemoglobin A1C Date Value Ref Range Status 10/09/2016 6.3 (H) 4.3 - 5.6 % Final Comment: [place] [employer] guidelines indicate that patients with [...] 81 MG TAB Take one(1) tablet daily. pwcucrum-jbzhnphdp-chugo cortisone (CORTISPORIN) otic solution Use 3 Drops in [...] No open lesions present. No callosities present. Musculoskeletal/Orthopae dic: Patient has pain to palpation of right [...] Mynor Flores DPM Referring Provider: MYNOR FLORES [[id number]] Allergies As of Date: 02/22/2018 Noted Allergy [...] [M76.61] Order(s):XR FOOT GENERAL 3V AP/LAT/OBL RT [[id number]] Order #: [id number] FUTURE MRI ANKLE WO IVCON RT [[id number]] Order #: [id number] FUTURE Prescriptions as of 02/22/2018 Sig: VERAPAMIL [...] 81 MG TABLET Take one(1) tablet daily. IMFJAMVO-GORZDLHKI-RNUVP NIRU * Use 3 Drops in the left [...] Status:Closed by MYNOR FLORES DPM on 02/22/18 [facility] PROGRESSon 02-22-2018 Protein mass conc HNO ID: [id number] Author: Kayli (John Paul Meza Service: (none) Author Type: Printing Worker Supervisor Type: Progress Notes Filed: 02/22/2018 10:36 AM [...] RT Gretchen February 22, 2018 8:59 AM [facility] Protein mass conc HNO ID: [id number] Author: Mynor Flores Service: (none) Author Type: [...] several Duration Units: Years Frequency: Intermittent Intervention: Relaxation;Reposition;Me dication;Other: See comment PT, Hemoglobin A1C Date Value Ref Range Status 10/09/2016 6.3 (H) 4.3 - 5.6 % Final Comment: [place] [employer] guidelines indicate that patients with [...] 81 MG TAB Take one(1) tablet daily. yfshihqm-yvybsgbjx-rympq cortisone (CORTISPORIN) otic solution Use 3 Drops in [...] No open lesions present. No callosities present. Musculoskeletal/Orthopae dic: Patient has pain to palpation of right [...] is interested in surgery. Mynor Flores DPM [facility] Protein mass conc HNO ID: [id number] Author: Carmelita Limon RN Service: (none) Author [...] comment (PT,) Patient presents to f/u on [place], R. She continues with 10/10 pain that comes and goes. She is currently in PT and states it is helping some. She wants to pursue surgery in the future, possibly next summer. [facility] XR FEMUR 2V AP/LAT RTon 02-02 XR FEMUR 2V AP/LAT RT * * *Final Report* * * DATE [...] DEGENERATIVE CHANGES IN THE HIP AND KNEE. Shutdown Planner: RADHA Transcribe Date/Time: Feb 22 2018 3:06P Dictated by : CHRIS FRANCIS MD This examination was interpreted and the report reviewed and electronically signed by: CHRIS FRANCIS MD on Feb 22 2018 3:15PM EST [id number] [facility] XR FOOT 3V AP/LAT/OBL RTon 1 XR FOOT 3V AP/LAT/OBL RT * * *Final Report* * * DATE [...] NO CHANGE COMPARED TO THE PREVIOUS EXAM. Shutdown Planner: RADHA Transcribe Date/Time: Feb 22 2018 3:15P Dictated by : CHRIS FRANCIS MD This examination was interpreted and the report reviewed and electronically signed by: CHRIS FRANCIS MD on Feb 22 2018 3:18PM EST [id number] [facility] CNTHERAPYon 02-18-2018 CNTHERAPY OT/PT/Speech Visit (PTWS) -------- LACY ALVARADO ([id number]) 1950 F Date Time Provider Department 02/18/18 7:00 AM TILA ALMANZAR (PT) PTWS Date Time Provider Department Center 02/18/2018 7:00 AM [id number], DIANA (PT)PTWS FOR[facility] [place] Reason for Visit: Physical Therapy [503] Primary [...] CAPSULE,MANDIE* Take 1 capsule by mouth twice* [id number]-EDUSGXTYB-CUPHU NIRU * Use 3 Drops in the left [...] TABLET Take one(1) tablet daily. Progress Notes: Tila Almanzar PT 02/20/2018 3:12 PM Signed Episode Visit Count: 10 Therapist That Will Oversee The Plan Of Care: Tila Almanzar PT Start of Care Date: 01/05/18 [...] needs. Patient response monitored throughout treatment. Billing: [facility]: Therapeutic Exercise (24274): 1:1 time: 35 minutes (2 units: 23-37 mins) Modalities Ultrasound (27174) 1:1 time: 8 minutes1 unit: 8-22 mins Total time: 43 minutes Tila Almanzar PT -------- [facility] PROGRESSon 02-18-2018 Protein mass conc HNO ID: [id number] Author: Tila (Pt) Jenelle Service: (none) Author Type: Physical Therapist Type: Progress Notes Filed: 02/20/2018 3:12 PM Note Text: Episode Visit Count: 10 Therapist That Will Oversee The Plan Of Care: Tila Almanzar PT Start of Care Date: 01/05/18 [...] needs. Patient response monitored throughout treatment. Billing: [facility]: Therapeutic Exercise ([id number]): 1:1 time: 35 minutes (2 units: 23-37 mins) Modalities Ultrasound (16767) 1:1 time: 8 minutes1 unit: 8-22 mins Total time: 43 minutes [facility] CNTHERAPYon 02-11-2018 CNTHERAPY OT/PT/Speech Visit (PTWS) -------- LACY ALVARADO ([id number]) 1950 F Date Time Provider Department 02/11/18 7:45 AM TILA ALMANZAR (PT) PTWS Date Time Provider Department Center 02/11/2018 7:45 AM [id number], DIANA (PT)PTWS [facility] [place] Reason for Visit: Physical Therapy [503] Primary [...] CAPSULE,MANDIE* Take 1 capsule by mouth twice* UHASICWO-OBDGIFBKK-LWMJC NIRU * Use 3 Drops in the left [...] TABLET Take one(1) tablet daily. Progress Notes: Tila Almanzar PT 02/11/2018 8:24 AM Signed Episode Visit Count: 9 Therapist That Will Oversee The Plan Of Care: Tila Almanzar PT Start of Care Date: 01/05/18 [...] and compliance. Patient education as noted. Billing: [facility]: Therapeutic Exercise (65722): 1:1 time: 38 minutes (3 units: 38-52 mins) Total time: 38 minutes Tila Almanzar PT -------- [facility] PROGRESSon 02-11-2018 Protein mass conc HNO ID: [id number] Author: Tila (Jacquie Almanzar Service: (none) Author Type: Physical Therapist Type: Progress Notes Filed: 02/11/2018 8:24 AM Note Text: Episode Visit Count: 9 Therapist That Will Oversee The Plan Of Care: Tila Almanzar PT Start of Care Date: 01/05/18 [...] and compliance. Patient education as noted. Billing: [facility]: Therapeutic Exercise ([id number]): 1:1 time: 38 minutes (3 units: 38-52 mins) Total time: 38 minutes Tila Almanzar PT [facility] CNTHERAPYon 02-04-2018 CNTHERAPY OT/PT/Speech Visit (PTWS) -------- JENNYLACY Ede ([id number]) 1950 F Date Time Provider Department 02/04/18 7:45 AM TILA ALMANZAR (PT) PTWS Date Time Provider Department Center 02/04/2018 7:45 AM [id number], DIANA (PT)PTWS [facility] [place] Reason for Visit: PT Progress Note [1596] [...] CAPSULE,MANDIE* Take 1 capsule by mouth twice* XGBUYHIO-ECGXFAUYS-HAWJJ NIRU * Use 3 Drops in the left [...] TABLET Take one(1) tablet daily. Progress Notes: Tila Almanzar PT 02/04/2018 8:24 AM Signed Episode Visit Count: 8 Therapist That Will Oversee The Plan Of Care: Tila Almanzar PT Start of Care Date: 01/05/18 [...] intensity of pain Goals updated on 02/04/2018. [place] in home exercise program.--MET for current HEP [...] be seen for Therapeutic exercise;Neuromuscular re-education;Manual therapy;Therapeutic activities;Self-correction management;Gait Training;Patient/Family/ Caregiver Education;Modalities;Fun ctional training;General Conditioning PLAN FOR NEXT VISIT: Add [...] provided in selection of appropriate interventions. Billing: [facility]: Therapeutic Exercise (52998): 1:1 time: 20 minutes (1 unit: 8-22 mins) Total time: 20 minutes Tila Almanzar PT -------- [facility] PROGRESSon 02-04-2018 Protein mass conc HNO ID: [id number] Author: Tila (Pt) Jenelle Service: (none) Author Type: Physical Therapist Type: Progress Notes Filed: 02/04/2018 8:24 AM Note Text: Episode Visit Count: 8 Therapist That Will Oversee The Plan Of Care: Tila Almanzar PT Start of Care Date: 01/05/18 [...] intensity of pain Goals updated on 02/04/2018. [place] in home exercise program.--MET for current HEP [...] be seen for Therapeutic exercise;Neuromuscular re-education;Manual therapy;Therapeutic activities;Self-correction management;Gait Training;Patient/Family/ Caregiver Education;Modalities;Fun ctional training;General Conditioning PLAN FOR NEXT VISIT: Add [...] provided in selection of appropriate interventions. Billing: [facility]: Therapeutic Exercise ([id number]): 1:1 time: 20 minutes (1 unit: 8-22 mins) Total time: 20 minutes [facility] CNTHERAPYon 02-02-2018 CNTHERAPY OT/PT/Speech Visit (PTWS) -------- LACY ALVARADO ([id number]) 1950 F Date Time Provider Department 02/02/18 7:45 AM TILA ALMANZAR (PT) PTJOCE Date Time Provider Department Center 02/02/2018 7:45 AM [id number], DIANA (PT)PTWS [facility] [place] Reason for Visit: Physical Therapy [503] Primary [...] CAPSULE,MANDIE* Take 1 capsule by mouth twice* YAHSZQWA-FOAIRIQNR-YNZLQ NIRU * Use 3 Drops in the left [...] TABLET Take one(1) tablet daily. Progress Notes: Tila Almanzar PT 02/03/2018 2:22 PM Signed Episode Visit Count: 7 Therapist That Will Oversee The Plan Of Care: Tila Almanzar PT Start of Care Date: 01/05/18 [...] Manual Therapy: 1: Prone: IASTM with [employer] Specialist Engineer Scanner for 13 minutes to R achillies tendon Skilled Intervention: Manual skills to improve joint mobility, ROM, and decrease pain. Utilized anatomy knowledge of the therapist, and assessment of patient's response to intervention. Billing: [facility]: Therapeutic Exercise (66501): 1:1 time: 22 minutes (1 unit: 8-22 mins) Manual Therapy (32105): 1:1 time: 13 minutes (1 unit: 8-22 mins) Total time: 35 minutes Tila Almanzar PT -------- [facility] PROGRESSon 02-02-2018 Protein mass conc HNO ID: [id number] Author: Tila (Pt) Jenelle Service: (none) Author Type: Physical Therapist Type: Progress Notes Filed: 02/03/2018 2:22 PM Note Text: Episode Visit Count: 7 Therapist That Will Oversee The Plan Of Care: Tila Almanzar PT Start of Care Date: 01/05/18 Onset Date: 01/06/16 Plan of Care Certification Date: 01/05/18 Patient Identified by Name and Date of : Yes REHABILITATION AND SPORTS THERAPY PHYSICAL THERAPY TREATMENT NOTE ASSESSMENT: Lacy Mera Jenny demonstrated good tolerance to 1 lb on [...] Manual Therapy: 1: Prone: IASTM with [employer] Specialist Engineer Scanner for 13 minutes to R achillies tendon Skilled Intervention: Manual skills to improve joint mobility, ROM, and decrease pain. Utilized anatomy knowledge of the therapist, and assessment of patient's response to intervention. Billing: [facility]: Therapeutic Exercise (45135): 1:1 time: 22 minutes (1 unit: 8-22 mins) Manual Therapy (09936): 1:1 time: 13 minutes (1 unit: 8-22 mins) Total time: 35 minutes Tila Almanzar PT [facility] PROGRESSon 09-30-2018 Protein mass conc HNO ID: [id number] Author: Tila (Pt) Jenelle Service: (none) Author Type: Physical Therapist Type: Progress Notes Filed: 01/31/2018 12:19 PM Note Text: Episode Visit Count: 6 Therapist That Will Oversee The Plan Of Care: Tila Almanzar PT Start of Care Date: 01/05/18 [...] interventions. Manual Therapy: 1: Prone: IASTM with [employer] Specialist Engineer Scanner for 8 minutes to R achillies [...] needs. Patient response monitored throughout treatment. Billing: [facility]: Therapeutic Exercise (98551): 1:1 time: 20 minutes (2 units: 23-37 mins) Manual Therapy (11329): 1:1 time: 12 minutes (1 unit: 8-22 mins) Modalities Ultrasound (55473) 1:1 time: 10 minutes1 unit: 8-22 mins Total time: 42 minutes Tila Almanzar PT [facility] CNTHERAPYon 01-28-2018 CNTHERAPY OT/PT/Speech Visit (PTWS) -------- LACY ALVARADO ([id number]) 1950 F Date Time Provider Department 01/28/18 7:45 AM TILA ALMANZAR (PT) PTWS Date Time Provider Department Center 01/28/2018 7:45 AM [id number], DIANA (PT)PTWS [facility] [place] Reason for Visit: Physical Therapy [503] Primary [...] CAPSULE,MANDIE* Take 1 capsule by mouth twice* SUGYTZSL-UQYWHIRJX-EBIQQ NIRU * Use 3 Drops in the left [...] TABLET Take one(1) tablet daily. Progress Notes: Tila Almanzar PT 01/31/2018 12:19 PM Signed Episode Visit Count: 6 Therapist That Will Oversee The Plan Of Care: Tila Almanzar PT Start of Care Date: 01/05/18 [...] interventions. Manual Therapy: 1: Prone: IASTM with [employer]Bound Scanner for 8 minutes to R achillies [...] needs. Patient response monitored throughout treatment. Billing: [facility]: Therapeutic Exercise (90550): 1:1 time: 20 minutes (2 units: 23-37 mins) Manual Therapy (80112): 1:1 time: 12 minutes (1 unit: 8-22 mins) Modalities Ultrasound (19345) 1:1 time: 10 minutes1 unit: 8-22 mins Total time: 42 minutes Tila Almanzar PT -------- [facility] PROGRESSon 01-27-2018 Protein mass conc HNO ID: [id number] Author: Tila (Pt) Jenelle Service: (none) Author Type: Physical Therapist Type: Progress Notes Filed: 01/27/2018 12:42 PM Note Text: Episode Visit Count: 5 Therapist That Will Oversee The Plan Of Care: Tila Almanzar PT Start of Care Date: 01/05/18 Onset Date: 01/06/16 Plan of Care Certification Date: 01/05/18 Patient Identified by Name and Date of : Yes REHABILITATION AND SPORTS THERAPY PHYSICAL THERAPY TREATMENT NOTE ASSESSMENT: Lacy Alvarado demonstrated difficulty with set up for weight bearing gastroc and soleus stretches but once set up she had not problems. Tried [employer] Specialist Engineer scanner tool for IASTM and Kinesiotaping. Will assess at next session. The patient will continue to benefit from continued skilled physical therapy for thex ex, manual, and US for pain control of R heel pain. PLAN FOR NEXT VISIT: See how liked [employer] Specialist Engineer tools and kinesiotape; BAPS Board for Ankle [...] cuing. Manual Therapy: 1: Prone: IASTM with [employer] Scanner for 6 minutes to R achillies [...] needs. Patient response monitored throughout treatment. Billing: [facility]: Therapeutic Exercise (86375): 1:1 time: 20 minutes (1 unit: 8-22 mins) Manual Therapy (58022): 1:1 time: 15 minutes (1 unit: 8-22 mins) Modalities Ultrasound (57581) 1:1 time: 10 minutes1 unit: 8-22 mins Total time: 45 minutes Tila Almanzar PT [facility] CNTHERAPYon 01-26-2018 CNTHERAPY OT/PT/Speech Visit (PTWS) -------- LACY ALVARADO ([id number]) 1950 F Date Time Provider Department 01/26/18 7:00 AM TILA ALMANZAR (PT) PTWS Date Time Provider Department Center 01/26/2018 7:00 AM [id number], DIANA (PT)PTWS [facility] [place] Reason for Visit: Physical Therapy [503] Primary [...] CAPSULE,MANDIE* Take 1 capsule by mouth twice* YCTNNYVI-BTEFEHDBV-MXMFU NIRU * Use 3 Drops in the left [...] TABLET Take one(1) tablet daily. Progress Notes: Tila Almanzar PT 01/27/2018 12:42 PM Signed Episode Visit Count: 5 Therapist That Will Oversee The Plan Of Care: Tila Almanzar PT Start of Care Date: 01/05/18 Onset Date: 01/06/16 Plan of Care Certification Date: 01/05/18 Patient Identified by Name and Date of : Yes REHABILITATION AND SPORTS THERAPY PHYSICAL THERAPY TREATMENT NOTE ASSESSMENT: Lacy Alvarado demonstrated difficulty with set up for weight bearing gastroc and soleus stretches but once set up she had not problems. Tried [employer] Specialist Engineer scanner tool for IASTM and Kinesiotaping. Will assess at next session. The patient will continue to benefit from continued skilled physical therapy for thex ex, manual, and US for pain control of R heel pain. PLAN FOR NEXT VISIT: See how liked [employer] Specialist Engineer tools and kinesiotape; BAPS Board for Ankle [...] Manual Therapy: 1: Prone: IASTM with [employer] Specialist Engineer Scanner for 6 minutes to R achillies [...] needs. Patient response monitored throughout treatment. Billing: [facility]: Therapeutic Exercise (90415): 1:1 time: 20 minutes (1 unit: 8-22 mins) Manual Therapy (03740): 1:1 time: 15 minutes (1 unit: 8-22 mins) Modalities Ultrasound (93381) 1:1 time: 10 minutes1 unit: 8-22 mins Total time: 45 minutes Tila Almanzar PT -------- [facility] PROGRESSon 01-24-2018 Protein mass conc HNO ID: [id number] Author: Tila (Jacquie Almanzar Service: (none) Author Type: Physical Therapist Type: Progress Notes Filed: 01/24/2018 7:04 AM Note Text: Episode Visit Count: 4 Therapist That Will Oversee The Plan Of Care: Tila Almanzar PT Start of Care Date: 01/05/18 [...] needs. Patient response monitored throughout treatment. Billing: [facility]: Therapeutic Exercise (30803): 1:1 time: 19 minutes (1 unit: 8-22 mins) Manual Therapy (59767): 1:1 time: 8 minutes (1 unit: 8-22 mins) Modalities Ultrasound (65428) 1:1 time: 15 minutes1 unit: 8-22 mins Total time: 42 minutes Tila Almanzar PT [facility] CNTHERAPYon 09-20-2018 CNTHERAPY OT/PT/Speech Visit (PTWS) -------- LACY ALVARADO ([id number]) 1950 F Date Time Provider Department 01/21/18 7:45 AM TILA ALMANZAR (PT) PTWS Date Time Provider Department Center 01/21/2018 7:45 AM [id number], DIANA (PT)PTWS [facility] [place] Reason for Visit: Physical Therapy [503] Primary [...] CAPSULE,MANDIE* Take 1 capsule by mouth twice* TZONAZPQ-GLWCJDYKW-WTXHO NIRU * Use 3 Drops in the left [...] TABLET Take one(1) tablet daily. Progress Notes: Tila Almanzar PT 01/24/2018 7:04 AM Signed Episode Visit Count: 4 Therapist That Will Oversee The Plan Of Care: Tila Almanzar PT Start of Care Date: 01/05/18 [...] needs. Patient response monitored throughout treatment. Billing: [facility]: Therapeutic Exercise (46030): 1:1 time: 19 minutes (1 unit: 8-22 mins) Manual Therapy (74546): 1:1 time: 8 minutes (1 unit: 8-22 mins) Modalities Ultrasound (39228) 1:1 time: 15 minutes1 unit: 8-22 mins Total time: 42 minutes Tila Almanzar PT -------- [facility] CNTHERAPYon 01-12-2018 CNTHERAPY OT/PT/Speech Visit (PTWS) -------- LACY ALVARADO ([id number]) 1950 F Date Time Provider Department 01/12/18 7:00 AM TILA ALMANZAR (PT) PTWS Date Time Provider Department Center 01/12/2018 7:00 AM [id number], DIANA (PT)PTWS [facility] [place] Reason for Visit: Physical Therapy [503] Primary [...] CAPSULE,MANDIE* Take 1 capsule by mouth twice* LVKCQWLY-HVMKDMTRC-NJRXF NIRU * Use 3 Drops in the left [...] TABLET Take one(1) tablet daily. Progress Notes: Tila Almaznar PT 01/12/2018 8:04 AM Signed Episode Visit Count: 3 Therapist That Will Oversee The Plan Of Care: Tila Almanzar PT Start of Care Date: 01/05/18 [...] needs. Patient response monitored throughout treatment. Billing: [facility]: Therapeutic Exercise (44936): 1:1 time: 20 minutes (1 unit: 8-22 mins) Manual Therapy (30103): 1:1 time: 8 minutes (1 unit: 8-22 mins) Modalities Ultrasound (51406) 1:1 time: 15 minutes1 unit: 8-22 mins Total time: 43 minutes Tila Almanzar PT -------- [facility] PROGRESSon 01-12-2018 Protein mass conc HNO ID: [id number] Author: Tila (Pt) Jenelle Service: (none) Author Type: Physical Therapist Type: Progress Notes Filed: 01/12/2018 8:04 AM Note Text: Episode Visit Count: 3 Therapist That Will Oversee The Plan Of Care: Tila Almanzar PT Start of Care Date: 01/05/18 [...] needs. Patient response monitored throughout treatment. Billing: [facility]: Therapeutic Exercise (81169): 1:1 time: 20 minutes (1 unit: 8-22 mins) Manual Therapy (71961): 1:1 time: 8 minutes (1 unit: 8-22 mins) Modalities Ultrasound (05959) 1:1 time: 15 minutes1 unit: 8-22 mins Total time: 43 minutes Tila Almanzar PT [facility] CNOVon 01-11-2018 CNOV Office Visit (PODIWS ) -------- LACY ALVARADO ([id number]) 1950 F Date Time Provider Department 01/11/18 9:10 AM MYNOR FLORES During your visit today, we recorded the following information about you: Mynor Flores DPM 01/11/2018 9:48 AM Signed ? Mynor Flores DPM Department of Podiatry [address] [place] [address] Dept: [phone] Dept 01/11/2018 Follow Up Podiatric Office Visit: HPI: Lacy Alvarado is a 67 year old female. Patient presents to discuss options for [place], R. She has constant pain to R heel [...] Take 1 capsule by mouth twice daily. 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 Wound: Not present. Musculoskeletal/Orthopae dic: Patient has pain to palpation of right [...] Mynor Flores DPM Referring Provider: MYNOR FLORES [[id number]] Allergies As of Date: 01/11/2018 Noted Allergy [...] CAPSULE,MANDIE* Take 1 capsule by mouth twice* YATJJUKX-EIPAHDFRZ-SKUGN NIRU * Use 3 Drops in the left [...] Status:Closed by MYNOR FLORES DPM on 01/11/18 [facility] PROGRESSon 01-11-2018 Protein mass conc HNO ID: [id number] Author: Mynor Flores Service: (none) Author Type: Physician Type: Progress Notes Filed: 01/11/2018 9:48 AM Note Text: ? Mynor Flores DPM Department of Podiatry [address] [facility] [address] Dept: [phone] Dept 01/11/2018 Follow Up Podiatric Office Visit: [...] Take 1 capsule by mouth twice daily. 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 Wound: Not present. Musculoskeletal/Orthopae dic: Patient has pain to palpation of right [...] F/u in 6 weeks Mynor Flores DPM [facility] CNTHERAPYon 01-07-2018 CNTHERAPY OT/PT/Speech Visit (PTWS) -------- LACY ALVARADO ([id number]) 1950 F Date Time Provider Department 01/07/18 7:00 AM TILA ALMANZAR (PT) PTWS Date Time Provider Department Center 01/07/2018 7:00 AM [id number], DIANA (PT)PTWS [facility] [place] Reason for Visit: Physical Therapy [503] Primary [...] CAPSULE,MANDIE* Take 1 capsule by mouth twice* MBPZLNOM-QQAIRTAZQ-QAKWX NIRU * Use 3 Drops in the left [...] TABLET Take one(1) tablet daily. Progress Notes: Tila Almanzar PT 01/07/2018 7:44 AM Signed Episode Visit Count: 2 Therapist That Will Oversee The Plan Of Care: Tila Almanzar PT Start of Care Date: 01/05/18 [...] needs. Patient response monitored throughout treatment. Billing: [facility]: Therapeutic Exercise (69832): 1:1 time: 15 minutes (1 unit: 8-22 mins) Modalities Ultrasound (54138) 1:1 time: 15 minutes1 unit: 8-22 mins Total time: 30 minutes Tila Almanzar PT -------- [facility] PROGRESSon 01-07-2018 Protein mass conc HNO ID: [id number] Author: Tila (Pt) Jenelle Service: (none) Author Type: Physical Therapist Type: Progress Notes Filed: 01/07/2018 7:44 AM Note Text: Episode Visit Count: 2 Therapist That Will Oversee The Plan Of Care: Tila Almanzar PT Start of Care Date: 01/05/18 Onset Date: 01/06/16 Plan of Care Certification Date: 01/05/18 Patient Identified by Name and Date of : Yes REHABILITATION AND SPORTS THERAPY PHYSICAL THERAPY TREATMENT NOTE ASSESSMENT: Lacy L Jenny demonstrated good tolerance to session with no [...] needs. Patient response monitored throughout treatment. Billing: [facility]: Therapeutic Exercise (39209): 1:1 time: 15 minutes (1 unit: 8-22 mins) Modalities Ultrasound (43416) 1:1 time: 15 minutes1 unit: 8-22 mins Total time: 30 minutes Tila Almanzar PT [facility] CNTHERAPYon 01-05-2018 CNTHERAPY OT/PT/Speech Visit (PTWS) -------- LACY ALVARADO ([id number]) 1950 F Date Time Provider Department 01/05/18 7:00 AM TILA ALMANZAR (PT) PTWS Date Time Provider Department Center 01/05/2018 7:00 AM [id number], DIANA (PT)PTWS [facility] [place] Reason for Visit: PT Eval [747] Patient [...] CAPSULE,MANDIE* Take 1 capsule by mouth twice* INAAUCOR-GXDLJZEVN-PJYBP NIRU * Use 3 Drops in the left [...] TABLET Take one(1) tablet daily. Progress Notes: Tila Almanzar PT 01/05/2018 9:09 AM Signed Episode Visit Count: 1 Therapist That Will Oversee The Plan Of Care: Tila Almanzar PT Start of Care Date: 01/05/18 [...] of Care: created on 01/05/18 through 03/16/18 [place] in home exercise program. Patient will decrease [...] Planned Treatment Interventions: Therapeutic exercise;Neuromuscular re-education;Manual therapy;Therapeutic activities;Self-correction management;Gait Training;Patient/Family/ Caregiver Education;Modalities;Fun ctional training;General ConditioningUltrasound PLAN FOR NEXT VISIT: see [...] until after class if necessary. Functional Limitations: walking;standing;physica l activities Prior Level of Function: Independent without [...] patient wearing sandals Education: Education Learning Preferences: Demonstration;Explanatio n;Performance;Printed Materials Barriers: None Learning/educational needs: Plan of Care;Home exercise program Education Provided: Yes, see treatment interventions for education provided Education Provided To: Patient Education Mode/Type: Demonstration;Explanatio n/Discussion;Literature/ Printed Materials;Performance;Te ach Back Response to Education/Teach Back: States/Identifies TREATMENT: [...] facilitated with verbal, visual and tactile cuing. Self-Nursing Home Management: 1: Recommended to stop wearing high [...] on clinical presentation, deficits, and needs. Billing: [facility]: Evaluation - Low Complexity (35633) Therapeutic Exercise (65842): 1:1 time: 15 minutes (1 unit: 8-22 mins) Educ Home Mgmt (58279): 1:1 time: 10 minutes (1 unit: 8-22 mins) Total time: 38 minutes Tila Almanzar PT -------- [facility] PROGRESSon 01-05-2018 Protein mass conc HNO ID: [id number] Author: Tila Almanzar Service: (none) Author Type: Physical Therapist Type: Progress Notes Filed: 01/05/2018 9:09 AM Note Text: Episode Visit Count: 1 Therapist That Will Oversee The Plan Of Care: Tila Almanzar PT Start of Care Date: 01/05/18 [...] of Care: created on 01/05/18 through 03/16/18 [place] in home exercise program. Patient will decrease [...] Planned Treatment Interventions: Therapeutic exercise;Neuromuscular re-education;Manual therapy;Therapeutic activities;Self-correction management;Gait Training;Patient/Family/ Caregiver Education;Modalities;Fun ctional training;General ConditioningUltrasound PLAN FOR NEXT VISIT: see [...] until after class if necessary. 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 Falls Interview: No positive findings with falls interview Pain Score: (Currenlty: 10 Worst: 02/10) Pain Location: Heel - Right Description: Burning;Aching [...] patient wearing sandals Education: Education Learning Preferences: Demonstration;Explanatio n;Performance;Printed Materials Barriers: None Learning/educational needs: Plan of Care;Home exercise program Education Provided: Yes, see treatment interventions for education provided Education Provided To: Patient Education Mode/Type: Demonstration;Explanatio n/Discussion;Literature/ Printed Materials;Performance;Te ach Back Response to Education/Teach Back: States/Identifies TREATMENT: [...] facilitated with verbal, visual and tactile cuing. Self-Nursing Home Management: 1: Recommended to stop wearing high [...] on clinical presentation, deficits, and needs. Billing: [facility]: Evaluation - Low Complexity (85100) Therapeutic Exercise (69661): 1:1 time: 15 minutes (1 unit: 8-22 mins) Educ Home Mgmt (57763): 1:1 time: 10 minutes (1 unit: 8-22 mins) Total time: 38 minutes Tila Almanzar PT [facility] CNOVon 12-09-2017 CNOV Office Visit (PODIWS ) -------- LACY ALVARADO ([id number]) 1950 F Date Time Provider Department 12/09/17 7:55 AM MYNOR FLORES During your visit today, we recorded the following information about you: Mynor Flores DPM 12/09/2017 8:20 AM Signed ? Mynor Flores DPM Department of Podiatry [facility] [address] [facility] [address] Dept: [phone] Dept 12/09/2017 Follow Up Podiatric Office Visit: HPI: Lacy Alvarado is a 67 year old female. Patient presents for follow up of Haglunds Deformity, R. Patient reports constant pain to R heel. Rates pain -02/10 that is constant burning and achy. Worsened [...] Take 1 capsule by mouth twice daily. 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 Open lesions absent. Wound: Not present. 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 Thoracic or lumbosacral [...] Status:Closed by MYNOR FLORES DPM on 12/09/17 [facility] PROGRESSon 12-09-2017 Protein mass conc HNO ID: [id number] Author: Mynor Flores Service: (none) Author Type: Physician Type: Progress Notes Filed: 12/09/2017 8:20 AM Note Text: ? Mynor Flores DPM Department of Podiatry [address] [place] [address] Dept: [phone] Dept 12/09/2017 Follow Up Podiatric Office Visit: HPI: Lacy Alvarado is a 67 year old female. Patient presents for follow up of Haglunds Deformity, R. Patient reports constant pain to R heel. Rates pain -02/10 that is constant burning and achy. Worsened [...] Take 1 capsule by mouth twice daily. 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 Open lesions absent. Wound: Not present. Musculoskeletal/Orthopae dic: Patient has pain to palpation of right [...] f/u in 1 month Mynor Flores DPM [facility] CNOVon 10-15-2017 CNOV Office Visit (ORTHWS ) -------- LACY ALVARADO ([id number]) 1950 F Date Time Provider Department 10/15/17 [...] MD Department of Orthopaedics Orthopaedics [address] [facility] [address] Dept: [phone] Dept October 15, 2017 CHIEF COMPLAINT: new problem (left knee pain, xray. last seen 03-11-16 for ganglion cyst left 2nd finger) Ms. Lacy Alvaraod is a 66 year old female returns [...] as to contrast therapies and/or to take analgesics/anti-inflamma tories as needed and all contraindications were reviewed. [...] MD Imaging: IMPRESSION: MILD DEGENERATIVE JOINT DISEASE. Shutdown Planner: RADHA ? Transcribe Date/Time: Oct 14 2017 12:16P Dictated by : CHRIS FRANCIS MD This examination was interpreted and the report reviewed and electronically signed by: CHRIS FRANCIS MD on Oct 14 2017 12:20PM ?EST Results-Findings * * *Final Report* * * DATE OF EXAM: Oct 14 2017 ?9:01AM ? WRX ? 5202 ?- ?XR KNEE 4V AP/PA BOTH+LAT/RODGER LT ?/ PROCEDURE REASON: pain ?? ? * * * * Physician Interpretation * * * * ?HISTORY: 66-YEAR-OLD FEMALE WITH ? pain. ?left knee lateral side pain for a couple months pt states/no known injuries TECHNIQUE: XR KNEE 4V AP/PA BOTH+LAT/RODGER LT ?? Laterality: ?LEFT ?? Number of [...] low transverse - COLONOSCOP W/ OR W/O [facility] SPEC 01/12/2013 Colonoscopy - EGD W/O OR [...] 81 MG TAB Take one(1) tablet daily. zmwlqtda-twznlwvzh-ciadv cortisone (CORTISPORIN) otic solution Use 3 Drops in [...] anxiety) This note was partially generated using [employer] voice recognition system, and there may be some incorrect words, spellings, and punctuation that were not noted in checking the note before saving. Jossue Finley MD Referring Provider: JOSSUE FINLEY [[id number]] Allergies As of Date: 10/15/2017 Noted Allergy [...] 81 MG TABLET Take one(1) tablet daily. SYBSPFFB-MVVWMFCJS-HLFBB NIRU * Use 3 Drops in the left [...] BUILDER 10/15/2017 10/15/2017 Class: Suppress Questions Route: [facility] Encounter Status:Closed by JOSSUE FINLEY MD on 10/15/17 [facility] PROGRESSon 10-15-2017 Protein mass conc HNO ID: [id number] Author: Jossue Finley Service: (none) Author Type: Physician Type: Progress Notes Filed: 10/15/2017 4:13 PM Note Text: Jossue Finley MD Department of Orthopaedics Orthopaedics [address] [facility] [address] Dept: [phone] Dept October 15, 2017 CHIEF COMPLAINT: new [...] as to contrast therapies and/or to take analgesics/anti-inflamma tories as needed and all contraindications were reviewed. [...] MD Imaging: IMPRESSION: MILD DEGENERATIVE JOINT DISEASE. Shutdown Planner: SAKINAB ? Transcribe Date/Time: Oct 14 2017 12:16P Dictated by : CHRIS FRANCIS MD This examination was interpreted and the report reviewed and electronically signed by: CHRIS FRANCIS MD on Oct 14 2017 12:20PM ?EST Results-Findings * * *Final Report* * * DATE OF EXAM: Oct 14 2017 ?9:01AM ? WRX ? 5202 ?- ?XR KNEE 4V AP/PA BOTH+LAT/RODGER LT ?/ PROCEDURE REASON: pain ?? ? * * * * Physician Interpretation * * * * ?HISTORY: 66-YEAR-OLD FEMALE WITH ? pain. ?left knee lateral side pain for a couple months pt states/no known injuries TECHNIQUE: XR KNEE 4V AP/PA BOTH+LAT/RODGER LT ?? Laterality: ?LEFT ?? Number of [...] low transverse - COLONOSCOP W/ OR W/O [facility] SPEC 01/12/2013 Colonoscopy - EGD W/O OR [...] 81 MG TAB Take one(1) tablet daily. acnzqzoz-rzpoqoyod-iqmnx cortisone (CORTISPORIN) otic solution Use 3 Drops in [...] anxiety) This note was partially generated using [employer] voice recognition system, and there may be some incorrect words, spellings, and punctuation that were not noted in checking the note before saving. Jossue Finley MD [facility] Protein mass conc HNO ID: [id number] Author: Norma Leone RN Service: (none) Author [...] knee afterward to clean out scar tissue. [facility] PROGRESSon 10-14-2017 Protein mass conc HNO ID: [id number] Author: John Paul Frias (Tech) Service: (none) Author Type: Printing Worker Supervisor Type: Progress Notes Filed: 10/14/2017 9:03 AM [...] Paul Dozier October 14, 2017 9:02 AM [facility] XR KNEE 4V AP/PA BOTH+LAT/ME R LTon 10-14-2017 XR KNEE 4V AP/PA BOTH+LAT/RODGER LT * * *Final Report* * * DATE OF EXAM: Oct 14 2017 9:01AM WRX 5202 - XR KNEE 4V AP/PA BOTH+LAT/RODGER LT / PROCEDURE REASON: pain * * * * Physician Interpretation * * * * HISTORY: 66-YEAR-OLD FEMALE WITH pain. left knee lateral side pain for a couple months pt states/no known injuries TECHNIQUE: XR KNEE 4V AP/PA BOTH+LAT/RODGER LT Laterality: LEFT Number of different views (projections): 4 COMPARISON: 05/15/14 RESULT: Mild medial compartment narrowing. Patellofemoral joint is mildly narrowed laterally. Small osteophytes about the medial compartment knee joint. Enthesophyte on patella at insertion quadriceps tendon. Tiny osteophytes at the patellofemoral joint. No joint effusion. No fracture. IMPRESSION: MILD DEGENERATIVE JOINT DISEASE. Shutdown Planner: PSCRaza Transcribe Date/Time: Oct 14 2017 12:16P Dictated by : CHRIS FRANCIS MD This examination was interpreted and the report reviewed and electronically signed by: CHRIS FRANCIS MD on Oct 14 2017 12:20PM EST [id number] [facility] CNCOon 07-20-2017 CNCO HNO ID: [id number] Author: Mammography Coordinator Service: (none) Author Type: Physician Type: Letter Filed: 07/21/2017 11:31 PM Note Text: July 20, 2017 PID: [id number] Lacy Alvarado [address] [place] [address] Dear Ms. Alvarado, We are pleased to [...] report will be kept on file at [facility] as part of your permanent medical record and are available for your continuing care. Thank you for allowing us to help in meeting your health care needs. Sincerely, Dr. Jaime Interpreting Radiologist [facility] (Normal over 40) [facility] Lipid Panel, [place] 07-20-2 018 Cholesterol in HDL mass conc 49 mg/dL Normal >39 [facility] Comment on above: Result Comment: 40-5 9 mg/dL, Acceptable >59 mg/dL, High: Negative risk factor for coronary heart disease <40 mg/dL, Low: Positive risk factor for coronary heart disease Performed By: #### L IPB #### [facility] [employer] [address] [place], [place] [address] Cholesterol in LDL mass conc 157 mg/dL High <100 [facility] Comment on above: Result Comment: <100 mg/dL, Optimal 100-129 mg/dL, Near optimal/above optimal 130-159 mg/dL, Borderline high 160-189 mg/dL, High >189 mg/dL, Very high Secondary prevention optimal LDL Cholesterol levels are recommended to be < 70 mg/dL Performed By: #### L IPB #### [facility] [address] [place], [place] [address] Cholesterol mass conc 225 mg/dL High <200 [facility] Comment on above: Result Comment: <200 mg/dL, Desirable 200-239 mg/dL, Borderline high >239 mg/dL, High Performed By: #### L IPB #### [facility] [address] [place], [place] [address] Fasting Time 2 hrs [facility] Comment on above: Performed By: #### L IPB #### [facility] [employer] [address] [place], [place] [address] LDL:HDL Ratio 3.20 High <2.54 [facility] Comment on above: Result Comment: Refe rence: 1. National Cholesterol Education Program ATP III Guideline At-A-Glance Quick Desk Reference: National Heart, Lung, and Blood [place]. National Institutes of Health. 2001: NIH Publication No. 01-3305. 2. An International Atherosclerosis Society position paper: global recommendations for the management of dyslipidemia: executive summary, Atherosclerosis. 2014: 232(2):410-413. Performed By: #### L IPB #### [facility] [employer] [address], [place] [address] Non HDL Cholesterol 176 mg/dL High <130 [facility] Comment on above: Result Comment: <130 mg/dL, Optimal 130-159 mg/dL, Near optimal/above optimal 160-189 mg/dL, Borderline high 190-219 mg/dL, High >219 mg/dL, Very high Secondary prevention optimal non HDL Cholesterol levels are recommended to be < 100 mg/dL Performed By: #### L IPB #### [facility] [address] [place], [place] [address] TC:HDL Ratio 4.59 Normal <5.10 [facility] Comment on above: Performed By: #### L IPB #### [facility] [employer] [address] [place], [place] [address] Triglyceride mass conc 97 mg/dL Normal <150 [facility] Comment on above: Result Comment: <150 mg/dL, Normal 150-199 mg/dL, Borderline high 200-499 mg/dL, High >499 mg/dL, Very high Performed By: #### L IPB #### [facility] [address] [place], [place] [address] VLDL Cholesterol 19 mg/dL Normal <30 [facility] Comment on above: Performed By: #### L IPB #### [facility] [employer] [address] [place], [place] [address] [facility] SCREENINGon 07-20-2017 [facility] SCREENING * * *Final Report* * * DATE OF EXAM: Jul 20 2017 8:44AM WOW 0581 - [facility] SCREENING / PROCEDURE REASON: Encounter for screening mammogram for malignant neoplasm of breast * * * * Physician Interpretation * * * * RESULT: #[id number] - [facility] SCREENING BILATERAL DIGITAL SCREENING MAMMOGRAM WITH CAD: [...] made to exams dated: 03/11/2016 mammogram - [facility] and 12/19/2014 mammogram - [facility]. There are scattered fibroglandular elements in both breasts. No significant masses, calcifications, or other findings are seen in either breast. There has been no significant interval change. IMPRESSION: NEGATIVE There is no mammographic evidence of malignancy.A 1 year screening mammogram is recommended. Nilay Jaime M.D., cp/madeline:07/20/2017 09:15:21 Chief Operating Officer: Brielle BLANDON)(Rg), [facility] letter sent: Normal over 40 Mammogram BI-RADS: 1 Negative Shutdown Planner: Madeline Transcribe Date/Time: Jul 20 2017 8:46A Dictated by: NILAY JAIME MD This examination was interpreted and the report reviewed and electronically signed by: NILAY JAIME MD on Jul 20 2017 9:15AM EST [id number] [facility] CNOVon 02-09-2017 CNOV Office Visit (AGCARDWST) LACY REDDY ([id number]) 1950 FDate Time Provider Takzmeaaqu85/9/17 9:00 AM CHRIS YAO During your visit today, we recorded the following information about you: Pulse Blood pressure Weight 88/minute 136/74 78.1 kgChris Yao MD 02/09/2017 5:28 PM SignedPERTINENT CARDIAC HISTORYChest [facility]LIN[facility] IMPRESSION/PLAN:Lacy Alvarado is doing well. She's been advised to continue her currentmedication. Her blood pressure is well-controlled. Her chest pain syndrome isstable.Plant based diet is encouraged. She will continue her current dose of LipitorI will see her in 12 months or as needed. If there is increased chest pain, shehas been advised to contact me.Written and verbal health teaching given to patient, patient verbalizesunderstanding and agrees with treatment plan.This note was generated using [employer] voice recognition system, and there may besome incorrect words, spellings, and punctuation that were not noted inchecking the note before saving.DIAGNOSIS FOR VISIT:HypertensionChest painHISTORY OF PRESENT ILLNESSLacy Alvarado returns for annual follow-up of her chest pain syndrome andhypertension.She reports good exercise tolerance. She's had no chest discomfort. She hasbeen more active, but has been limited somewhat by heel spurs. She deniesedema. She's had no syncope, palpitations, TIAs, amaurosis or claudication.ALLERGIES:A LLERGIESAllergen Reactions- Seasonal Allergies Other: See Comments Cats, Cockroach, Dust mites, molds, weedsCURRENT OUTPATIENT MEDICATIONS:metFORMIN ER (GLUCOPHAGE XR) 500 mg 24 hr tablet Take 1 tablet by mouth twicedaily before meals.meloxicam (MOBIC) 7.5 mg tablet Take 1 tablet by mouth once daily.atorvastatin (LIPITOR) 40 mg tablet Take 1 tablet by mouth once daily.verapamil SR (CALAN SR, ISOPTIN SR) 120 mg CR tablet Take 1 tablet by mouthtwice daily.gabapentin (NEURONTIN) 600 mg tablet Take 1 tablet by mouth twice daily.hydroxychloroquine (PLAQUENIL) 200 mg tablet Take 1 tablet by mouth twicedaily.divalproex DR (DEPAKOTE) 500 mg EC tablet Take 2 tablets by mouth daily atbedtime.losartan (COZAAR) 25 mg tablet Take 1 tablet by mouth once daily.glimepiride (AMARYL) 1 mg tablet Take one with evening mealomeprazole (PRILOSEC) 20 mg capsule Take 1 capsule by mouth twice daily.neomycin-polymyxin -hydrocortisone (CORTISPORIN) otic solution Use 3 Drops inthe left ear four times daily.dicyclomine (BENTYL) 10 mg capsule Take 1 capsule by mouth before meals and atbedtime.CPAP New supplies needed, medically necessary. Mask refitting please. autoPAP8-15 cmH2O, mask, tubing, filters, heated humidity, lifetime supplies. Dx: OSAcholecalciferol (VITAMIN D3) 2,000 unit tablet Take 1 tablet by mouth oncedaily.Blood-Glucose Meter monitoring kit Glucose Meter of Choice - Kit - Dx: Type 2DM - Controlled E11.9blood sugar diagnostic (BLOOD GLUCOSE TEST) test strip Test blood sugar(s) 1xtimes daily. Dx: Type 2 DM - Controlled E11.9 Insulin: NoLancets lancets Test blood sugar(s) 1x daily. Dx: E11.9. Insulin: Noolopatadine (PATANOL) 0.1 % ophthalmic solution Use 1 Drop in both eyes twicedaily as needed for Cold/Allergy Symptoms.nitroglycerin sublingual (NITROSTAT) 0.4 mg SL tablet Dissolve 1 tablet underthe tongue as needed. FOR CHEST PAIN. IF NO RELIEF CALL 911fluticasone (FLONASE) 50 mcg/actuation nasal spray 2 sprays to each nostrilonce to two times daily.ASPIRIN 81 MG TAB Take one(1) tablet daily.PHYSICAL EXAMINATION:VITAL SIGNS: BP 136/74 Pulse 88 Wt 172 lb 1.6 oz (78.1kg)Chest: Clear to percussion and auscultation. Trachea is midline. Air entry isequal. Cardiac: Regular rhythm. S1 and S2 are normal. PMI is nondisplaced.There is a soft systolic ejection murmur. Carotids are brisk without bruits.JVP is less than 10 cm. Abdomen: Soft and nontender. There are no pulsatilemasses or bruits. No liver enlargement. Bowel sounds are active.Extremities: Trace edema. Pulses are intact and symmetrical.Recent labs reviewed. Renal function is normal. LDL has improved to 118.Electronically Signed:Chris Yao MDOctober 2016 9:06 [facility]: JANAE Fincheferring Provider: SHAD BRISENO [[id number]]Allergies As of Date: 02/09/2017 Noted Allergy ReactionSEASONAL ALLERGIES 01/30/2014 14 - Other: See Comments Comments: Cats, Cockroach, Dust mites, molds, weedsDate Reviewed: 02/09/2017Reviewed by: Farooq (Rn) KARINA Cottrell - Fully AssessedReason for Visit: Follow Up [171]Primary Visit Diagnosis:Chest pain, unspecified type [R07.9] Other Visit Diagnoses:Hypertension, essential [I10] Essential hypertension [I10]Order(s):verapamil SR (CALAN SR, ISOPTIN SR) 240 mg CR tabletTake 0.5 tablets by mouth twice daily.Disp: 30 tabletRfl: 11Prescriptions as of 02/09/2017 Sig: VERAPAMIL ER (SR) 240 MG TABL* [...] CAPSULE,MANDIE* Take 1 capsule by mouth twice* OLTANJZO-DLPVXCYJH-WBEAH NIRU * Use 3 Drops in the left ear f* DICYCLOMINE 10 MG CAPSULE Take 1 capsule by mouth befor* CPAP New supplies needed, medicall* CHOLECALCIFEROL (VITAMIN D3) * Take 1 tablet by mouth once d* BLOOD-GLUCOSE METER KIT Glucose Meter of Choice - Kit* BLOOD SUGAR DIAGNOSTIC STRIPS Test blood sugar(s) 1x times * LANCETS Test blood sugar(s) 1x daily.* OLOPATADINE 0.1 % EYE DROPS Use 1 Drop in both eyes twice* NITROGLYCERIN 0.4 MG SUBLINGU* Dissolve 1 tablet under the t* FLUTICASONE 50 MCG/ACTUATION * 2 sprays to each nostril once* * ASPIRIN 81 MG TABLET Take one(1) tablet daily.Problem List As Of Date 02/09/2017 Noted Resolved DM w/o Complication Type II [...] INVALID FOR*07/17/2014 DM2 (diabetes mellitus, type 2) ([facility]) [E11.9] INVALID FOR* More... Thoracic or lumbosacral [...] FOR* DDD (degenerative disc disease), lumbar [M51.36]INVALID FOR*Prescriptions ordered this encounter Disp Refills Start End VERAPAMIL ER (SR) 240 MG TABLET,EXTE* 30 t* 11 02/09/2017 Route: ORAL Sig: Take 0.5 tablets by mouth twice daily.Medications Discontinued During This Encounter verapamil SR (CALAN SR, ISOPTIN SR) * 60 t* 11 01/19/2017 02/09/2017 Route: ORAL Sig: Take 1 tablet by mouth twice daily. Disc: Reason for discontinue is not on file.Classic SmartForms filed during this visit:Extended VitalsEncounter Number: [id number] Status:Closed by CHRIS YAO MD on 02/09/17 [facility] PROGRESSon 02-09-2017 PROGRESS HNO ID: [id number]: Chris Pelayo: (none)Author Type: PhysicianType: Progress NotesFiled: 02/09/2017 5:28 PMNote Text:PERTINENT CARDIAC HISTORYChest painHLVIDANT PUNGO HOSPITALLINICAL IMPRESSION/PLAN:Lacy Alvarado is doing well. She's been advised to continue hercurrent medication. Her blood pressure is well-controlled. Her chest painsyndrome is stable.Plant based diet is encouraged. She will continue her current dose ofLipitorI will see her in 12 months or as needed. If there is increased chestpain, she has been advised to contact me.Written and verbal health teaching given to patient, patient verbalizesunderstanding and agrees with treatment plan.This note was generated using [employer] voice recognition system, and theremay be some incorrect words, spellings, and punctuation that were notnoted in checking the note before saving.DIAGNOSIS FOR VISIT:HypertensionChest painHISTORY OF PRESENT ILLNESSLacy Alvarado returns for annual follow-up of her chest pain syndromeand hypertension.She reports good exercise tolerance. She's had no chest discomfort. Shehas been more active, but has been limited somewhat by heel spurs. Shedenies edema. She's had no syncope, palpitations, TIAs, amaurosis orclaudication.ALLERGIES :ALLERGIESAllergen Reactions- Seasonal Allergies Other: See Comments Cats, Cockroach, Dust mites, molds, weedsCURRENT OUTPATIENT MEDICATIONS:metFORMIN ER (GLUCOPHAGE XR) 500 mg 24 hr tablet Take 1 tablet by mouthtwice daily before meals.meloxicam (MOBIC) 7.5 mg tablet Take 1 tablet by mouth once daily.atorvastatin (LIPITOR) 40 mg tablet Take 1 tablet by mouth once daily.verapamil SR (CALAN SR, ISOPTIN SR) 120 mg CR tablet Take 1 tablet bymouth twice daily.gabapentin (NEURONTIN) 600 mg tablet Take 1 tablet by mouth twice daily.hydroxychloroquine (PLAQUENIL) 200 mg tablet Take 1 tablet by mouth twicedaily.divalproex DR (DEPAKOTE) 500 mg EC tablet Take 2 tablets by mouth daily atbedtime.losartan (COZAAR) 25 mg tablet Take 1 tablet by mouth once daily.glimepiride (AMARYL) 1 mg tablet Take one with evening mealomeprazole (PRILOSEC) 20 mg capsule Take 1 capsule by mouth twice daily.neomycin-polymyxin -hydrocortisone (CORTISPORIN) otic solution Use 3 Dropsin the left ear four times daily.dicyclomine (BENTYL) 10 mg capsule Take 1 capsule by mouth before mealsand at bedtime.CPAP New supplies needed, medically necessary. Mask refitting please.autoPAP 8-15 cmH2O, mask, tubing, filters, heated humidity, lifetimesupplies. Dx: OSAcholecalciferol (VITAMIN D3) 2,000 unit tablet Take 1 tablet by mouth oncedaily.Blood-Glucose Meter monitoring kit Glucose Meter of Choice - Kit - Dx:Type 2 DM - Controlled E11.9blood sugar diagnostic (BLOOD GLUCOSE TEST) test strip Test blood sugar(s)1x times daily. Dx: Type 2 DM - Controlled E11.9 Insulin: NoLancets lancets Test blood sugar(s) 1x daily. Dx: E11.9. Insulin: Noolopatadine (PATANOL) 0.1 % ophthalmic solution Use 1 Drop in both eyestwice daily as needed for Cold/Allergy Symptoms.nitroglycerin sublingual (NITROSTAT) 0.4 mg SL tablet Dissolve 1 tabletunder the tongue as needed. FOR CHEST PAIN. IF NO RELIEF CALL 911fluticasone (FLONASE) 50 mcg/actuation nasal spray 2 sprays to eachnostril once to two times daily.ASPIRIN 81 MG TAB Take one(1) tablet daily.PHYSICAL EXAMINATION:VITAL SIGNS: BP 136/74 Pulse 88 Wt 172 lb 1.6 oz (78.1kg)Chest: Clear to percussion and auscultation. Trachea is midline. Airentry is equal. Cardiac: Regular rhythm. S1 and S2 are normal. PMI isnondisplaced. There is a soft systolic ejection murmur. Carotids arebrisk without bruits. JVP is less than 10 cm. Abdomen: Soft andnontender. There are no pulsatile masses or bruits. No liverenlargement. Bowel sounds are active. Extremities: Trace edema. Pulsesare intact and symmetrical.Recent labs reviewed. Renal function is normal. LDL has improved to 118.Electronically Signed:Chris Yao MDAsp[facility]agon [facility] 2016 9:06 [facility]: Kasie Pink MD [facility] No Panel Information SARS-CoV-2 & FLU Antigen (Rapid) [facility] Work Phone: S. pyogenes Ag IF Ql (Throat ) S. pyogenes Ag IA Ql (Unsp spec) [facility] Work Phone: Vital Signs Date Time Vital Sign Value Performing Clinician Facility 10-03-2024 11:23-0400 Body temperature 98.6 [degF] Dr. Mayda Garcia MD Work Phone: [facility] 10-03-2024 11:23-0400 Body weight 78.[address] Mayda Gracia MD Work Phone: [facility] 10-03-2024 11:23-0400 Diastolic blood pressure 79 mm[Hg] Dr. Mayda Garcia MD Work Phone: [facility] 10-03-2024 11:23-0400 Heart rate 88 /min Dr. Mayda Garcia MD Work Phone: [facility] 10-03-2024 11:23-0400 Respiratory rate 17 /min Dr. Mayda Garcia MD Work Phone: [facility] 10-03-2024 11:23-0400 SaO2% (BldA) [Mass fraction] 98 % Dr. Mayda Garcia MD Work Phone: [facility] 10-03-2024 11:23-0400 Systolic blood pressure 139 mm[Hg] Dr. Mayda Garcia MD Work Phone: [facility] 09-28-2024 08:21-0400 Body mass index (BMI) [Ratio] 30.9 kg/m2 Dr. Mayda Garcia MD Work Phone: [facility] 09-28-2024 08:21-0400 Body temperature 97.4 [degF] Dr. Mayda Garcia MD Work Phone: [facility] 09-28-2024 08:21-0400 Body weight 76.[address] Mayda Garcia MD Work Phone: [facility] 09-28-2024 08:21-0400 Diastolic blood pressure 77 mm[Hg] Dr. Mayda Garcia MD Work Phone: [facility] 09-28-2024 08:21-0400 Heart rate 78 /min Dr. Mayda Garcia MD Work Phone: [facility] 09-28-2024 08:21-0400 Respiratory rate 18 /min Dr. Mayda Garcia MD Work Phone: [facility] 09-28-2024 08:21-0400 SaO2% (BldA) [Mass fraction] 99 % Dr. Mayda Garcia MD Work Phone: [facility] 09-28-2024 08:21-0400 Systolic blood pressure 148 mm[Hg] Dr. Mayda Garcia MD Work Phone: [facility] 09-21-2024 11:14-0400 Body height 157.[address] Mayda Garcia MD Work Phone: [facility] 09-21-2024 11:14-0400 Body mass index (BMI) [Ratio] 31.1 kg/m2 Dr. Mayda Garcia MD Work Phone: [facility] 09-21-2024 11:14-0400 Body temperature 96 [degF] Dr. Mayda Garcia MD Work Phone: [facility] 09-21-2024 11:14-0400 Body weight 77.[address] Mayda Garcia MD Work Phone: [facility] 09-21-2024 11:14-0400 Diastolic blood pressure 76 mm[Hg] Dr. Madya Garcia MD Work Phone: [facility] 09-21-2024 11:14-0400 Heart rate 100 /min Dr. Mayda Garcia MD Work Phone: [facility] 09-21-2024 11:14-0400 Respiratory rate 16 /min Dr. Mayda Garcia MD Work Phone: [facility] 09-21-2024 11:14-0400 SaO2% (BldA) [Mass fraction] 97 % Dr. Mayda Garcia MD Work Phone: [facility] 09-21-2024 11:14-0400 Systolic blood pressure 126 mm[Hg] Dr. Mayda Garcia MD Work Phone: [facility] 09-19-2024 07:29-0400 Body mass index (BMI) [Ratio] 0.1 kg/m2 Dr. Mayda Garcia MD Work Phone: [facility] 09-19-2024 07:29-0400 Body weight 0.[address] Mayda Garcia MD Work Phone: [facility] 09-19-2024 07:29-0400 Diastolic blood pressure 82 mm[Hg] Dr. Mayda Garcia MD Work Phone: [facility] 09-19-2024 07:29-0400 Heart rate 91 /min Dr. Mayda Garcia MD Work Phone: [facility] 09-19-2024 07:29-0400 Respiratory rate 18 /min Dr. Mayda Garcia MD Work Phone: [facility] 09-19-2024 07:29-0400 SaO2% (BldA) [Mass fraction] 95 % Dr. Mayda Garcia MD Work Phone: [facility] 09-19-2024 07:29-0400 Systolic blood pressure 125 mm[Hg] Dr. Mayda Garcia MD Work Phone: [facility] 09-16-2024 19:40-0400 Body temperature 98.2 [degF] Dr. Mayda Garcia MD Work Phone: [facility] 09-16-2024 19:40-0400 Diastolic blood pressure 83 mm[Hg] Dr. Mayda Garcia MD Work Phone: [facility] 09-16-2024 19:40-0400 Heart rate 78 /min Dr. Mayda Garcia MD Work Phone: [facility] 09-16-2024 19:40-0400 Respiratory rate 24 /min Dr. Mayda Garcia MD Work Phone: [facility] 09-16-2024 19:40-0400 SaO2% (BldA) [Mass fraction] 99 % Dr. Mayda Garcia MD Work Phone: [facility] 09-16-2024 19:40-0400 Systolic blood pressure 137 mm[Hg] Dr. Mayda Garcia MD Work Phone: [facility] 09-16-2024 15:08-0400 Body height 157.[address] Mayda Garcia MD Work Phone: [facility] 08-10-2024 11:01-0400 Body mass index (BMI) [Ratio] 30.3 kg/m2 Dr. Mayda Garcia MD Work Phone: [facility] 08-10-2024 11:01-0400 Body temperature 97 [degF] Dr. Mayda Garcia MD Work Phone: [facility] 08-10-2024 11:01-0400 Body weight 75.[address] Mayda Garcia MD Work Phone: [facility] 08-10-2024 11:01-0400 Diastolic blood pressure 60 mm[Hg] Dr. Mayda Garcia MD Work Phone: [facility] 08-10-2024 11:01-0400 Heart rate 93 /min Dr. Mayda Garcia MD Work Phone: [facility] 08-10-2024 11:01-0400 Respiratory rate 16 /min Dr. Mayda Gacria MD Work Phone: [facility] 08-10-2024 11:01-0400 SaO2% (BldA) [Mass fraction] 97 % Dr. Mayda Garcia MD Work Phone: [facility] 08-10-2024 11:01-0400 Systolic blood pressure 108 mm[Hg] Dr. Mayda Garcia MD Work Phone: [facility] 07-15-2024 16:16-0400 Body temperature 97.6 [degF] Dr. Mayda Garcia MD Work Phone: [facility] 07-15-2024 16:16-0400 Diastolic blood pressure 79 mm[Hg] Dr. Mayda Garcia MD Work Phone: [facility] 07-15-2024 16:16-0400 Heart rate 98 /min Dr. Mayda Garcia MD Work Phone: [facility] 07-15-2024 16:16-0400 Respiratory rate 18 /min Dr. Mayda Garcia MD Work Phone: [facility] 07-15-2024 16:16-0400 SaO2% (BldA) [Mass fraction] 99 % Dr. Mayda Garcia MD Work Phone: [facility] 07-15-2024 16:16-0400 Systolic blood pressure 161 mm[Hg] Dr. Mayda Garcia MD Work Phone: [facility] 07-15-2024 12:12-0400 Body height 157.[address] Mayda Garcia MD Work Phone: [facility] 07-15-2024 12:12-0400 Body mass index (BMI) [Ratio] 30.6 kg/m2 Dr. Mayda Garcia MD Work Phone: [facility] 07-15-2024 12:12-0400 Body weight 75.[address] Mayda Garcia MD Work Phone: [facility] 07-14-2024 20:20-0400 Body temperature 97.9 [degF] Dr. Mayda Garcia MD Work Phone: [facility] 07-14-2024 20:20-0400 Diastolic blood pressure 80 mm[Hg] Dr. Mayda Garcia MD Work Phone: [facility] 07-14-2024 20:20-0400 Heart rate 85 /min Dr. Mayda Garcia MD Work Phone: [facility] 07-14-2024 20:20-0400 Respiratory rate 17 /min Dr. Mayda Garcia MD Work Phone: [facility] 07-14-2024 20:20-0400 SaO2% (BldA) [Mass fraction] 98 % Dr. Mayda Garcia MD Work Phone: [facility] 07-14-2024 20:20-0400 Systolic blood pressure 107 mm[Hg] Dr. Mayda Garcia MD Work Phone: [facility] 07-14-2024 16:18-0400 Body height 157.[address] Mayda Garcia MD Work Phone: [facility] 07-14-2024 16:18-0400 Body mass index (BMI) [Ratio] 30.7 kg/m2 Dr. Mayda Garcia MD Work Phone: [facility] 07-14-2024 16:18-0400 Body weight 76.[address] Mayda Garcia MD Work Phone: [facility] 07-05-2024 10:56-0500 Body mass index (BMI) [Ratio] 30.7 kg/m2 Dr. Mayda Garcia MD Work Phone: [facility] 07-05-2024 10:56-0500 Body temperature 98.6 [degF] Dr. Mayda Garcia MD Work Phone: [facility] 07-05-2024 10:56-0500 Body weight 76.[address] Mayda Garcia MD Work Phone: [facility] 07-05-2024 10:56-0500 Diastolic blood pressure 70 mm[Hg] Dr. Mayda Garcia MD Work Phone: [facility] 07-05-2024 10:56-0500 Heart rate 104 /min Dr. Mayda Garcia MD Work Phone: [facility] 07-05-2024 10:56-0500 Respiratory rate 17 /min Dr. Mayda Garcia MD Work Phone: [facility] 07-05-2024 10:56-0500 SaO2% (BldA) [Mass fraction] 98 % Dr. Mayda Garcia MD Work Phone: [facility] 07-05-2024 10:56-0500 Systolic blood pressure 130 mm[Hg] Dr. Mayda Garcia MD Work Phone: [facility] 05-20-2024 09:36-0500 Body mass index (BMI) [Ratio] 30.9 kg/m2 Dr. Mayda Garcia MD Work Phone: [facility] 05-20-2024 09:36-0500 Body temperature 97.6 [degF] Dr. Mayda Garcia MD Work Phone: [facility] 05-20-2024 09:36-0500 Body weight 76.[address] Mayda Garcia MD Work Phone: [facility] 05-20-2024 09:36-0500 Diastolic blood pressure 78 mm[Hg] Dr. Mayda Garcia MD Work Phone: [facility] 05-20-2024 09:36-0500 Heart rate 98 /min Dr. Mayda Garcia MD Work Phone: [facility] 05-20-2024 09:36-0500 Respiratory rate 16 /min Dr. Mayda Garcia MD Work Phone: [facility] 05-20-2024 09:36-0500 SaO2% (BldA) [Mass fraction] 99 % Dr. Mayda Garcia MD Work Phone: [facility] 05-20-2024 09:36-0500 Systolic blood pressure 142 mm[Hg] Dr. Mayda Garcia MD Work Phone: [facility] 05-16-2024 09:40-0500 Body mass index (BMI) [Ratio] 31.6 kg/m2 Dr. Mayda Garcia MD Work Phone: [facility] 05-16-2024 09:40-0500 Body temperature 98.4 [degF] Dr. Mayda Garcia MD Work Phone: [facility] 05-16-2024 09:40-0500 Body weight 78.[address] Mayda Garcia MD Work Phone: [facility] 05-16-2024 09:40-0500 Diastolic blood pressure 70 mm[Hg] Dr. Mayda Garcia MD Work Phone: [facility] 05-16-2024 09:40-0500 Heart rate 89 /min Dr. Mayda Garcia MD Work Phone: [facility] 05-16-2024 09:40-0500 Respiratory rate 16 /min Dr. Mayda Garcia MD Work Phone: [facility] 05-16-2024 09:40-0500 SaO2% (BldA) [Mass fraction] 99 % Dr. Mayda Garcia MD Work Phone: [facility] 05-16-2024 09:40-0500 Systolic blood pressure 116 mm[Hg] Dr. Mayda Garcia MD Work Phone: [facility] 04-21-2024 10:56-0500 Body mass index (BMI) [Ratio] 30.9 kg/m2 Dr. Mayda Garcia MD Work Phone: [facility] 04-21-2024 10:56-0500 Body temperature 98.4 [degF] Dr. Mayda Garcia MD Work Phone: [facility] 04-21-2024 10:56-0500 Body weight 76.[address] Mayda Garcia MD Work Phone: [facility] 04-21-2024 10:56-0500 Diastolic blood pressure 72 mm[Hg] Dr. Mayda Garcia MD Work Phone: [facility] 04-21-2024 10:56-0500 Heart rate 111 /min Dr. Mayda Garcia MD Work Phone: [facility] 04-21-2024 10:56-0500 Respiratory rate 17 /min Dr. Mayda Garcia MD Work Phone: [facility] 04-21-2024 10:56-0500 SaO2% (BldA) [Mass fraction] 97 % Dr. Mayda Garcia MD Work Phone: [facility] 04-21-2024 10:56-0500 Systolic blood pressure 130 mm[Hg] Dr. Mayda Garcia MD Work Phone: [facility] 04-20-2024 12:38-0500 Body weight 76.[address] Mayda Garcia MD Work Phone: [facility] 04-20-2024 12:38-0500 Heart rate 106 /min Dr. Mayda Garcia MD Work Phone: [facility] 04-20-2024 12:38-0500 SaO2% (BldA) [Mass fraction] 97 % Dr. Mayda Garcia MD Work Phone: [facility] 04-19-2024 10:25-0500 Body mass index (BMI) [Ratio] 30.9 kg/m2 Dr. Mayda Garcia MD Work Phone: [facility] 04-19-2024 10:25-0500 Body weight 76.[address] Mayda Garcia MD Work Phone: [facility] 04-19-2024 10:25-0500 Diastolic blood pressure 62 mm[Hg] Dr. Mayda Garcia MD Work Phone: [facility] 04-19-2024 10:25-0500 Heart rate 97 /min Dr. Mayda Garcia MD Work Phone: [facility] 04-19-2024 10:25-0500 Respiratory rate 16 /min Dr. Mayda Garcia MD Work Phone: [facility] 04-19-2024 10:25-0500 Systolic blood pressure 115 mm[Hg] Dr. Mayda Garcia MD Work Phone: [facility] 08-03-2023 00:11-0400 Body weight 75.[address] Mayda Garcia Work Phone: [facility] 07-29-2023 08:29-0400 Body height 157.[address] Mayda Garcia Work Phone: [facility] 07-29-2023 08:29-0400 Body weight 75.[address] Mayda Garcia Work Phone: [facility] 07-23-2023 10:50-0400 Body height 157.[address] Mayda Garcia Work Phone: [facility] 07-23-2023 10:50-0400 Body mass index (BMI) [Ratio] 30.2 kg/m2 Dr. Mayda Garcia Work Phone: [facility] 07-23-2023 10:50-0400 Body temperature 97.8 [degF] Dr. Mayda Garcia Work Phone: [facility] 07-23-2023 10:50-0400 Body weight 74.[address] Mayda Garcia Work Phone: [facility] 07-23-2023 10:50-0400 Diastolic blood pressure 76 mm[Hg] Dr. Mayda Garcia Work Phone: [facility] 07-23-2023 10:50-0400 Heart rate 96 /min Dr. Mayda Garcia Work Phone: [facility] 07-23-2023 10:50-0400 Respiratory rate 17 /min Dr. Mayda Garcia Work Phone: [facility] 07-23-2023 10:50-0400 SaO2% (BldA) [Mass fraction] 99 % Dr. Mayda Garcia Work Phone: [facility] 07-23-2023 10:50-0400 Systolic blood pressure 118 mm[Hg] Dr. Mayda Garcia Work Phone: [facility] 07-20-2023 13:17-0400 Body mass index (BMI) [Ratio] 30.9 kg/m2 Dr. Mayda Garcia Work Phone: [facility] 07-20-2023 13:17-0400 Body temperature 97.8 [degF] Dr. Mayda Garcia Work Phone: [facility] 07-20-2023 13:17-0400 Body weight 76.[address] Mayda Garcia Work Phone: [facility] 07-20-2023 13:17-0400 Diastolic blood pressure 68 mm[Hg] Dr. Mayda Garcia Work Phone: [facility] 07-20-2023 13:17-0400 Heart rate 88 /min Dr. Mayda Garcia Work Phone: [facility] 07-20-2023 13:17-0400 Respiratory rate 17 /min Dr. Mayda Garcia Work Phone: [facility] 07-20-2023 13:17-0400 SaO2% (BldA) [Mass fraction] 99 % Dr. Mayda Garcia Work Phone: [facility] 07-20-2023 13:17-0400 Systolic blood pressure 118 mm[Hg] Dr. Mayda Garcia Work Phone: [facility] 07-03-2023 00:06-0500 Body weight 73.[address] Mayda Garcia Work Phone: [facility] 07-01-2023 09:13-0500 Body height 157.[address] Mayda Garcia Work Phone: [facility] 07-01-2023 09:13-0500 Body weight 73.[address] Mayda Garcia Work Phone: [facility] 06-17-2023 10:16-0500 Body height 157.[address] Mayda Garcia Work Phone: [facility] 06-17-2023 10:16-0500 Body mass index (BMI) [Ratio] 28.8 kg/m2 Dr. Mayda Garcia Work Phone: [facility] 06-17-2023 10:16-0500 Body temperature 97.4 [degF] Dr. Mayda Garcia Work Phone: [facility] 06-17-2023 10:16-0500 Body weight 71.[address] Mayda Garcia Work Phone: [facility] 06-17-2023 10:16-0500 Diastolic blood pressure 82 mm[Hg] Dr. Mayda Garcia Work Phone: [facility] 06-17-2023 10:16-0500 Heart rate 93 /min Dr. Mayda Garcia Work Phone: [facility] 06-17-2023 10:16-0500 Respiratory rate 16 /min Dr. Mayda Garcia Work Phone: [facility] 06-17-2023 10:16-0500 SaO2% (BldA) [Mass fraction] 98 % Dr. Mayda Garcia Work Phone: [facility] 06-17-2023 10:16-0500 Systolic blood pressure 126 mm[Hg] Dr. Mayda Garcia Work Phone: [facility] 06-10-2023 07:48-0500 Body mass index (BMI) [Ratio] 29.4 kg/m2 Dr. Mayda Garcia Work Phone: [facility] 06-10-2023 07:48-0500 Body temperature 98 [degF] Dr. Mayda Garcia Work Phone: [facility] 06-10-2023 07:48-0500 Body weight 73.[address] Mayda Garcia Work Phone: [facility] 06-10-2023 07:48-0500 Diastolic blood pressure 90 mm[Hg] Dr. Mayda Garcia Work Phone: [facility] 06-10-2023 07:48-0500 Heart rate 79 /min Dr. Mayda Garcia Work Phone: [facility] 06-10-2023 07:48-0500 Respiratory rate 20 /min Dr. Mayda Garcia Work Phone: [facility] 06-10-2023 07:48-0500 SaO2% (BldA) [Mass fraction] 99 % Dr. Mayda Garcia Work Phone: [facility] 06-10-2023 07:48-0500 Systolic blood pressure 171 mm[Hg] Dr. Mayda Garcia Work Phone: [facility] 06-01-2023 10:05-0500 Body mass index (BMI) [Ratio] 29.8 kg/m2 Dr. Mayda Garcia Work Phone: [facility] 06-01-2023 10:05-0500 Body weight 73.[address] Mayda Garcia Work Phone: [facility] 06-01-2023 10:05-0500 Diastolic blood pressure 64 mm[Hg] Dr. Mayda Garcia Work Phone: [facility] 06-01-2023 10:05-0500 Systolic blood pressure 104 mm[Hg] Dr. Mayda Garcia Work Phone: [facility] 06-01-2023 09:57-0500 Heart rate 101 /min Dr. Mayda Garcia Work Phone: [facility] 06-01-2023 09:57-0500 SaO2% (BldA) [Mass fraction] 97 % Dr. Mayda Garcia Work Phone: [facility] 06-01-2023 09:50-0500 Body height 157.[address] Mayda Garcia Work Phone: [facility] 05-18-2023 10:38-0500 Body temperature 98 [degF] Dr. Mayda Garcia Work Phone: [facility] 05-18-2023 10:38-0500 Diastolic blood pressure 70 mm[Hg] Dr. Mayda Garcia Work Phone: [facility] 05-18-2023 10:38-0500 Heart rate 70 /min Dr. Mayda Garcia Work Phone: [facility] 05-18-2023 10:38-0500 Respiratory rate 15 /min Dr. Mayda Garcia Work Phone: [facility] 05-18-2023 10:38-0500 SaO2% (BldA) [Mass fraction] 98 % Dr. Mayda Garcia Work Phone: [facility] 05-18-2023 10:38-0500 Systolic blood pressure 120 mm[Hg] Dr. Mayda Garcia Work Phone: [facility] 04-16-2023 11:43-0500 Body temperature 97.7 [degF] Dr. Mayda Garcia Work Phone: [facility] 04-16-2023 11:43-0500 Body weight 75.[address] Mayda Garcia Work Phone: [facility] 04-16-2023 11:43-0500 Diastolic blood pressure 70 mm[Hg] Dr. Mayda Garcia Work Phone: [facility] 04-16-2023 11:43-0500 Heart rate 99 /min Dr. Mayda Garcia Work Phone: [facility] 04-16-2023 11:43-0500 Respiratory rate 16 /min Dr. Mayda Garcia Work Phone: [facility] 04-16-2023 11:43-0500 SaO2% (BldA) [Mass fraction] 99 % Dr. Mayda Garcia Work Phone: [facility] 04-16-2023 11:43-0500 Systolic blood pressure 130 mm[Hg] Dr. Mayda Garcia Work Phone: [facility] 03-19-2023 09:50-0500 Body height 157.[address] Mayda Garcia Work Phone: [facility] 03-19-2023 09:50-0500 Body mass index (BMI) [Ratio] 29.8 kg/m2 Dr. Mayda Garcia Work Phone: [facility] 03-19-2023 09:50-0500 Body weight 73.[address] Mayda Garcia Work Phone: [facility] 03-19-2023 09:50-0500 Diastolic blood pressure 60 mm[Hg] Dr. Mayda Garcia Work Phone: [facility] 03-19-2023 09:50-0500 Heart rate 92 /min Dr. Mayda Garcia Work Phone: [facility] 03-19-2023 09:50-0500 Respiratory rate 16 /min Dr. Mayda Garcia Work Phone: [facility] 03-19-2023 09:50-0500 Systolic blood pressure 98 mm[Hg] Dr. Mayda Garcia Work Phone: [facility] 03-16-2023 14:11-0500 Body mass index (BMI) [Ratio] 30.4 kg/m2 Dr. Myada Garcia Work Phone: [facility] 03-16-2023 [id number] Body temperature 97.1 [degF] Dr. Mayda Garcia Work Phone: [facility] 03-16-2023 14:11-0500 Body weight 75.[address] Mayda Garcia Work Phone: [facility] 03-16-2023 14:11-0500 Diastolic blood pressure 62 mm[Hg] Dr. Mayda Garcia Work Phone: [facility] 03-16-2023 14:11-0500 Heart rate 102 /min Dr. Mayda Garcia Work Phone: [facility] 03-16-2023 14:11-0500 Respiratory rate 15 /min Dr. Mayda Garcia Work Phone: [facility] 03-16-2023 14:11-0500 SaO2% (BldA) [Mass fraction] 97 % Dr. Mayda Garcia Work Phone: [facility] 03-16-2023 14:11-0500 Systolic blood pressure 118 mm[Hg] Dr. Mayda Garcia Work Phone: [facility] 03-16-2023 13:21-0500 Body mass index (BMI) [Ratio] 30.5 kg/m2 Dr. Mayda Garcia Work Phone: [facility] 03-16-2023 13:21-0500 Body temperature 98.2 [degF] Dr. Mayda Garcia Work Phone: [facility] 03-16-2023 13:21-0500 Body weight 75.[address] Mayda Garcia Work Phone: [facility] 03-16-2023 13:21-0500 Diastolic blood pressure 63 mm[Hg] Dr. Mayda Garcia Work Phone: [facility] 03-16-2023 13:21-0500 Heart rate 82 /min Dr. Mayda Garcia Work Phone: [facility] 03-16-2023 13:21-0500 Respiratory rate 14 /min Dr. Mayda Garcia Work Phone: [facility] 03-16-2023 13:21-0500 SaO2% (BldA) [Mass fraction] 99 % Dr. Mayda Garcia Work Phone: [facility] 03-16-2023 13:21-0500 Systolic blood pressure 120 mm[Hg] Dr. Mayda Garcia Work Phone: [facility] 02-18-2023 10:07-0400 Body height 157.[address] Mayda Garcia Work Phone: [facility] 02-18-2023 10:07-0400 Body mass index (BMI) [Ratio] 30.5 kg/m2 Dr. Mayda Garcia Work Phone: [facility] 02-18-2023 10:07-0400 Body weight 75.[address] Mayda Garcia Work Phone: [facility] 02-18-2023 10:07-0400 Diastolic blood pressure 76 mm[Hg] Dr. Mayda Garcia Work Phone: [facility] 02-18-2023 10:07-0400 Heart rate 103 /min Dr. Mayda Garcia Work Phone: [facility] 02-18-2023 10:07-0400 Respiratory rate 18 /min Dr. Mayda Garcia Work Phone: [facility] 02-18-2023 10:07-0400 Systolic blood pressure 114 mm[Hg] Dr. Mayda Garcia Work Phone: [facility] 02-11-2023 11:01-0400 Body mass index (BMI) [Ratio] 29.5 kg/m2 Dr. Mayda Garcia Work Phone: [facility] 02-11-2023 11:01-0400 Body temperature 98.4 [degF] Dr. Mayda Garcia Work Phone: [facility] 02-11-2023 11:01-0400 Body weight 73.[address] Mayda Garcia Work Phone: [facility] 02-11-2023 11:01-0400 Diastolic blood pressure 70 mm[Hg] Dr. Mayda Garcia Work Phone: [facility] 02-11-2023 11:01-0400 Heart rate 90 /min Dr. Mayda Garcia Work Phone: [facility] 02-11-2023 11:01-0400 Respiratory rate 17 /min Dr. Mayda Garcia Work Phone: [facility] 02-11-2023 11:01-0400 SaO2% (BldA) [Mass fraction] 96 % Dr. Mayda Garcia Work Phone: [facility] 02-11-2023 11:01-0400 Systolic blood pressure 110 mm[Hg] Dr. Mayda Garcia Work Phone: [facility] 02-04-2023 10:53-0400 Body mass index (BMI) [Ratio] 30.5 kg/m2 Dr. Mayda Garcia Work Phone: [facility] 02-04-2023 10:53-0400 Body temperature 97.6 [degF] Dr. Mayda Garcia Work Phone: [facility] 02-04-2023 10:53-0400 Body weight 75.[address] Mayda Garcia Work Phone: [facility] 02-04-2023 10:53-0400 Diastolic blood pressure 80 mm[Hg] Dr. Mayda Garcia Work Phone: [facility] 02-04-2023 10:53-0400 Heart rate 91 /min Dr. Mayda Garcia Work Phone: [facility] 02-04-2023 10:53-0400 Respiratory rate 16 /min Dr. Mayda Garcia Work Phone: [facility] 02-04-2023 10:53-0400 SaO2% (BldA) [Mass fraction] 98 % Dr. Mayda Garcia Work Phone: [facility] 02-04-2023 10:53-0400 Systolic blood pressure 124 mm[Hg] Dr. Mayda Garcia Work Phone: [facility] 01-26-2023 11:37-0400 Body temperature 98.3 [degF] Dr. Mayda Garcia Work Phone: [facility] 01-26-2023 11:37-0400 Diastolic blood pressure 67 mm[Hg] Dr. Mayda Garcia Work Phone: [facility] 01-26-2023 11:37-0400 Heart rate 86 /min Dr. Mayda Garcia Work Phone: [facility] 01-26-2023 11:37-0400 Respiratory rate 18 /min Dr. Mayda Garcia Work Phone: [facility] 01-26-2023 11:37-0400 SaO2% (BldA) [Mass fraction] 98 % Dr. Mayda Garcia Work Phone: [facility] 01-26-2023 11:37-0400 Systolic blood pressure 107 mm[Hg] Dr. Mayda Garcia Work Phone: [facility] 01-24-2023 06:00-0400 Body mass index (BMI) [Ratio] 31.3 kg/m2 Dr. Mayda Garcia Work Phone: [facility] 01-24-2023 06:00-0400 Body weight 77.[address] Mayda Garcia Work Phone: [facility] 01-22-2023 06:03-0400 Inhaled oxygen flow rate 2 L/min Dr. aMyda Garcia Work Phone: [facility] 01-21-2023 16:06-0400 Body height 157.[address] Mayda Garcia Work Phone: [facility] 01-11-2023 07:00-0400 Body temperature 98.29 [degF] Azam Rose MD Work Phone: [facility] 01-11-2023 07:00-0400 Diastolic blood pressure 62 mm[Hg] Azam Rose MD Work Phone: [facility] 01-11-2023 07:00-0400 Heart rate 81 /min Azam Rose MD Work Phone: [facility] 01-11-2023 07:00-0400 Respiratory rate 16 /min Azam Rose MD Work Phone: [facility] 01-11-2023 07:00-0400 SaO2% (BldA) [Mass fraction] 96 % Azam Rose MD Work Phone: [facility] 01-11-2023 07:00-0400 Systolic blood pressure 112 mm[Hg] Azam Rose MD Work Phone: [facility] 01-11-2023 04:43-0400 Body mass index (BMI) [Ratio] 31.21 kg/m2 Azam Rose MD Work Phone: [facility] 01-11-2023 04:43-0400 Body weight 77.4 kg Azam Rose MD Work Phone: [facility] 01-02-2023 08:47-0400 Body height 157.5 cm Azam Rose MD Work Phone: [facility] 01-01-2023 10:48-0400 SaO2% (BldA) [Mass fraction] 99.2 % Azam Rose MD Work Phone: [facility] 12-23-2022 10:18-0400 Body height 157.5 cm Azam Rose MD Work Phone: [facility] 12-23-2022 10:18-0400 Body mass index (BMI) [Ratio] 31.17 kg/m2 Azam Rose MD Work Phone: [facility] 12-23-2022 10:18-0400 Body weight 77.29 kg Azam Rose MD Work Phone: [facility] 12-23-2022 10:18-0400 Diastolic blood pressure 78 mm[Hg] Azam Rose MD Work Phone: [facility] 12-23-2022 10:18-0400 Heart rate 91 /min Azam Rose MD Work Phone: [facility] 12-23-2022 10:18-0400 Systolic blood pressure 140 mm[Hg] Azam Rose MD Work Phone: [facility] 12-19-2022 14:00-0400 Body temperature 97.2 [degF] Dr. Mayda Garcia Work Phone: [facility] 12-19-2022 14:00-0400 Diastolic blood pressure 69 mm[Hg] Dr. Mayda Garcia Work Phone: [facility] 12-19-2022 14:00-0400 Heart rate 92 /min Dr. Mayda Garcia Work Phone: [facility] 12-19-2022 14:00-0400 Respiratory rate 18 /min Dr. Mayda Garcia Work Phone: [facility] 12-19-2022 14:00-0400 SaO2% (BldA) [Mass fraction] 100 % Dr. Mayda Garcia Work Phone: [facility] 12-19-2022 14:00-0400 Systolic blood pressure 140 mm[Hg] Dr. Mayda Garcia Work Phone: [facility] 12-18-2022 10:26-0400 Body height 157.[address] Mayda Garcia Work Phone: [facility] 12-18-2022 10:26-0400 Body mass index (BMI) [Ratio] 31.4 kg/m2 Dr. Mayda Garcia Work Phone: [facility] 12-18-2022 10:26-0400 Body weight 77.[address] Mayda Garcia Work Phone: [facility] 12-18-2022 10:00-0400 Respiratory rate 18 /min Dr. Mayda Garcia Work Phone: [facility] 12-18-2022 09:15-0400 Body temperature 98.1 [degF] Dr. Mayda Garcia Work Phone: [facility] 12-18-2022 09:15-0400 Diastolic blood pressure 72 mm[Hg] Dr. Mayda Garcia Work Phone: [facility] 12-18-2022 09:15-0400 Heart rate 74 /min Dr. Mayda Garcia Work Phone: [facility] 12-18-2022 09:15-0400 SaO2% (BldA) [Mass fraction] 95 % Dr. Mayda Garcia Work Phone: [facility] 12-18-2022 09:15-0400 Systolic blood pressure 148 mm[Hg] Dr. Mayda Garcia Work Phone: [facility] 12-18-2022 05:23-0400 Body height 187.[address] Mayda Garcia Work Phone: [facility] 12-18-2022 05:23-0400 Body mass index (BMI) [Ratio] 22.4 kg/m2 Dr. Mayda Garcia Work Phone: [facility] 12-18-2022 05:23-0400 Body weight 79.[address] Mayda Garcia Work Phone: [facility] 12-11-2022 14:43-0400 Body mass index (BMI) [Ratio] 30.9 kg/m2 Dr. Mayda Garcia Work Phone: [facility] 12-11-2022 14:43-0400 Body temperature 98.3 [degF] Dr. Mayda Garcia Work Phone: [facility] 12-11-2022 14:43-0400 Body weight 76.[address] Mayda Garcia Work Phone: [facility] 12-11-2022 14:43-0400 Diastolic blood pressure 76 mm[Hg] Dr. Mayda Garcia Work Phone: [facility] 12-11-2022 14:43-0400 Heart rate 97 /min Dr. Mayda Garcia Work Phone: [facility] 12-11-2022 14:43-0400 Respiratory rate 16 /min Dr. Mayda Garcia Work Phone: [facility] 12-11-2022 14:43-0400 SaO2% (BldA) [Mass fraction] 97 % Dr. Mayda Garcia Work Phone: [facility] 12-11-2022 14:43-0400 Systolic blood pressure 124 mm[Hg] Dr. Mayda Garcia Work Phone: [facility] 11-19-2022 14:56-0400 Body mass index (BMI) [Ratio] 31.7 kg/m2 Dr. Mayda Garcia Work Phone: [facility] 11-19-2022 14:56-0400 Body temperature 97.7 [degF] Dr. Mayda Garcia Work Phone: [facility] 11-19-2022 14:56-0400 Body weight 78.[address] Mayda Garcia Work Phone: [facility] 11-19-2022 14:56-0400 Diastolic blood pressure 78 mm[Hg] Dr. Mayda Garcia Work Phone: [facility] 11-19-2022 14:56-0400 Heart rate 90 /min Dr. Mayda Garcia Work Phone: [facility] 11-19-2022 14:56-0400 Respiratory rate 14 /min Dr. Mayda Garcia Work Phone: [facility] 11-19-2022 14:56-0400 SaO2% (BldA) [Mass fraction] 98 % Dr. Mayda Gacria Work Phone: [facility] 11-19-2022 14:56-0400 Systolic blood pressure 130 mm[Hg] Dr. Mayda Garcia Work Phone: [facility] 10-10-2022 11:04-0400 Body height 157.[address] Mayda Garcia Work Phone: [facility] 10-10-2022 11:04-0400 Body mass index (BMI) [Ratio] 31.4 kg/m2 Dr. Mayda Garcia Work Phone: [facility] 10-10-2022 11:04-0400 Body weight 78.[address] Mayda Garcia Work Phone: [facility] 10-03-2022 10:42-0400 Body height 157.[address] Mayda Garcia Work Phone: [facility] 10-03-2022 10:42-0400 Body mass index (BMI) [Ratio] 31.7 kg/m2 Dr. Mayda Garcia Work Phone: [facility] 10-03-2022 10:42-0400 Body temperature 97.1 [degF] Dr. Mayda Garcia Work Phone: [facility] 10-03-2022 10:42-0400 Body weight 78.[address] Mayda Garcia Work Phone: [facility] 10-03-2022 10:42-0400 Diastolic blood pressure 84 mm[Hg] Dr. Mayda Garcia Work Phone: [facility] 10-03-2022 10:42-0400 Heart rate 112 /min Dr. Mayda Garcia Work Phone: [facility] 10-03-2022 10:42-0400 Respiratory rate 18 /min Dr. Mayda Garcia Work Phone: [facility] 10-03-2022 10:42-0400 SaO2% (BldA) [Mass fraction] 98 % Dr. Mayda Garcia Work Phone: [facility] 10-03-2022 10:42-0400 Systolic blood pressure 138 mm[Hg] Dr. Mayda Garcia Work Phone: [facility] 10-02-2022 11:41-0400 Body mass index (BMI) [Ratio] 31.5 kg/m2 Dr. Mayda Garcia Work Phone: [facility] 10-02-2022 11:41-0400 Body temperature 98 [degF] Dr. Mayda Garcia Work Phone: [facility] 10-02-2022 11:41-0400 Body weight 78.[address] Mayda Garcia Work Phone: [facility] 10-02-2022 11:41-0400 Diastolic blood pressure 60 mm[Hg] Dr. Mayda Garcia Work Phone: [facility] 10-02-2022 11:41-0400 Heart rate 91 /min Dr. Mayda Garcia Work Phone: [facility] 10-02-2022 11:41-0400 Respiratory rate 17 /min Dr. Mayda Garcia Work Phone: [facility] 10-02-2022 11:41-0400 SaO2% (BldA) [Mass fraction] 97 % Dr. Mayda Garcia Work Phone: [facility] 10-02-2022 11:41-0400 Systolic blood pressure 118 mm[Hg] Dr. Mayda Garcia Work Phone: [facility] 08-22-2022 15:19-0400 Body mass index (BMI) [Ratio] 32.1 kg/m2 Dr. Mayda Garcia Work Phone: [facility] 08-22-2022 15:19-0400 Body temperature 98 [degF] Dr. Mayda Garcia Work Phone: [facility] 08-22-2022 15:19-0400 Body weight 79.[address] Mayda Garcia Work Phone: [facility] 08-22-2022 15:19-0400 Diastolic blood pressure 72 mm[Hg] Dr. Mayda Garcia Work Phone: [facility] 08-22-2022 15:19-0400 Heart rate 89 /min Dr. Mayda Garcia Work Phone: [facility] 08-22-2022 15:19-0400 Respiratory rate 16 /min Dr. Mayda Garcia Work Phone: [facility] 08-22-2022 15:19-0400 SaO2% (BldA) [Mass fraction] 97 % Dr. Mayda Garcia Work Phone: [facility] 08-22-2022 15:19-0400 Systolic blood pressure 130 mm[Hg] Dr. Mayda Garcia Work Phone: [facility] 08-14-2022 01:11-0400 Diastolic blood pressure 81 mm[Hg] Dr. Mayda Garcia Work Phone: [facility] 08-14-2022 01:11-0400 Heart rate 87 /min Dr. Mayda Garcia Work Phone: [facility] 08-14-2022 01:11-0400 Respiratory rate 17 /min Dr. Mayda Garcia Work Phone: [facility] 08-14-2022 01:11-0400 SaO2% (BldA) [Mass fraction] 100 % Dr. Mayda Garcia Work Phone: [facility] 08-14-2022 01:11-0400 Systolic blood pressure 163 mm[Hg] Dr. Mayda Garcia Work Phone: [facility] 08-13-2022 21:57-0400 Body height 157.[address] Mayda Garcia Work Phone: [facility] 08-13-2022 21:57-0400 Body mass index (BMI) [Ratio] 35.2 kg/m2 Dr. Mayda Garcia Work Phone: [facility] 08-13-2022 21:57-0400 Body temperature 98.2 [degF] Dr. Mayda Garcia Work Phone: [facility] 08-13-2022 21:57-0400 Body weight 87.[address] Mayda Garcia Work Phone: [facility] 06-30-2022 10:56-0500 Body mass index (BMI) [Ratio] 32.1 kg/m2 Dr. Mayda Garcia Work Phone: [facility] 06-30-2022 10:56-0500 Body temperature 98.8 [degF] Dr. Mayda Garcia Work Phone: [facility] 06-30-2022 10:56-0500 Body weight 79.[address] Mayda Garcia Work Phone: [facility] 06-30-2022 10:56-0500 Diastolic blood pressure 80 mm[Hg] Dr. Mayda Garcia Work Phone: [facility] 06-30-2022 10:56-0500 Heart rate 87 /min Dr. Mayda Garcia Work Phone: [facility] 06-30-2022 10:56-0500 Respiratory rate 16 /min Dr. Mayda Garcia Work Phone: [facility] 06-30-2022 10:56-0500 SaO2% (BldA) [Mass fraction] 99 % Dr. Mayda Garcia Work Phone: [facility] 06-30-2022 10:56-0500 Systolic blood pressure 128 mm[Hg] Dr. Mayda Garcia Work Phone: [facility] 06-09-2022 13:30-0500 Body mass index (BMI) [Ratio] 35.6 kg/m2 Dr. Mayda Garcia Work Phone: [facility] 06-09-2022 13:30-0500 Body temperature 98.5 [degF] Dr. Mayda Garcia Work Phone: [facility] 06-09-2022 13:30-0500 Body weight 88.[address] Mayda Garcia Work Phone: [facility] 06-09-2022 13:30-0500 Diastolic blood pressure 74 mm[Hg] Dr. Mayda Garcia Work Phone: [facility] 06-09-2022 13:30-0500 Heart rate 102 /min Dr. Mayda Garcia Work Phone: [facility] 06-09-2022 13:30-0500 Respiratory rate 16 /min Dr. Mayda Garcia Work Phone: [facility] 06-09-2022 13:30-0500 SaO2% (BldA) [Mass fraction] 96 % Dr. Mayda Garcia Work Phone: [facility] 06-09-2022 13:30-0500 Systolic blood pressure 136 mm[Hg] Dr. Mayda Garcia Work Phone: [facility] 06-07-2022 17:41-0500 Body height 157.[address] Mayda Garcia Work Phone: [facility] 06-07-2022 17:41-0500 Body mass index (BMI) [Ratio] 35.6 kg/m2 Dr. Mayda Garcia Work Phone: [facility] 06-07-2022 17:41-0500 Body temperature 97.9 [degF] Dr. Mayda Garcia Work Phone: [facility] 06-07-2022 17:41-0500 Body weight 88.[address] Mayda Garcia Work Phone: [facility] 06-07-2022 17:41-0500 Diastolic blood pressure 85 mm[Hg] Dr. Mayda Garcia Work Phone: [facility] 06-07-2022 17:41-0500 Heart rate 90 /min Dr. Mayda Garcia Work Phone: [facility] 06-07-2022 17:41-0500 Respiratory rate 18 /min Dr. Mayda Garcia Work Phone: [facility] 06-07-2022 17:41-0500 SaO2% (BldA) [Mass fraction] 100 % Dr. Mayda Garcia Work Phone: [facility] 06-07-2022 17:41-0500 Systolic blood pressure 180 mm[Hg] Dr. Mayda Garcia Work Phone: [facility] 06-06-2022 14:05-0500 Respiratory rate 18 /min Dr. Mayda Garcia Work Phone: [facility] 06-06-2022 13:04-0500 Diastolic blood pressure 70 mm[Hg] Dr. Mayda Garcia Work Phone: [facility] 06-06-2022 13:04-0500 Heart rate 79 /min Dr. Mayda Garcia Work Phone: [facility] 06-06-2022 13:04-0500 Systolic blood pressure 133 mm[Hg] Dr. Mayda Garcia Work Phone: [facility] 06-06-2022 12:27-0500 SaO2% (BldA) [Mass fraction] 98 % Dr. Mayda Garcia Work Phone: [facility] 06-06-2022 09:11-0500 Body mass index (BMI) [Ratio] 33.7 kg/m2 Dr. Mayda Garcia Work Phone: [facility] 06-06-2022 09:11-0500 Body temperature 98.1 [degF] Dr. Mayda Garcia Work Phone: [facility] 06-06-2022 09:11-0500 Body weight 83.[address] Mayda Garcia Work Phone: [facility] 05-06-2022 13:32-0500 Body temperature 96.2 [degF] Dr. Mayda Garcia Work Phone: [facility] 05-06-2022 13:32-0500 Body weight 80.[address] Mayda Garcia Work Phone: [facility] 05-06-2022 13:32-0500 Diastolic blood pressure 66 mm[Hg] Dr. Mayda Garcia Work Phone: [facility] 05-06-2022 13:32-0500 Heart rate 89 /min Dr. Mayda Garcia Work Phone: [facility] 05-06-2022 13:32-0500 Respiratory rate 16 /min Dr. Mayda Garcia Work Phone: [facility] 05-06-2022 13:32-0500 SaO2% (BldA) [Mass fraction] 96 % Dr. Mayda Garcia Work Phone: [facility] 05-06-2022 13:32-0500 Systolic blood pressure 136 mm[Hg] Dr. Mayda Garcia Work Phone: [facility] 04-02-2022 11:18-0500 Body height 157.[address] Mayda Garcia Work Phone: [facility] 04-02-2022 11:18-0500 Body mass index (BMI) [Ratio] 32 kg/m2 Dr. Mayda Garcia Work Phone: [facility] 04-02-2022 11:18-0500 Body temperature 98.5 [degF] Dr. Mayda Garcia Work Phone: [facility] 04-02-2022 11:18-0500 Body weight 79.[address] Mayda Garcia Work Phone: [facility] 04-02-2022 11:18-0500 Diastolic blood pressure 64 mm[Hg] Dr. Mayda Garcia Work Phone: [facility] 04-02-2022 11:18-0500 Heart rate 100 /min Dr. Mayda Garcia Work Phone: [facility] 04-02-2022 11:18-0500 Respiratory rate 14 /min Dr. Mayda Garcia Work Phone: [facility] 04-02-2022 11:18-0500 SaO2% (BldA) [Mass fraction] 99 % Dr. Mayda Garcia Work Phone: [facility] 04-02-2022 11:18-0500 Systolic blood pressure 104 mm[Hg] Dr. Mayda Garcia Work Phone: [facility] 03-29-2022 10:32-0500 Body height 157.[address] Mayda Garcia Work Phone: [facility] Work Phone: 03-29-2022 10:32-0500 Body mass index (BMI) [Ratio] 32.8 kg/m2 Dr. Mayda Garcia Work Phone: [facility] 03-29-2022 10:32-0500 Body temperature 96 [degF] Dr. Mayda Garcia Work Phone: [facility] 03-29-2022 10:32-0500 Body weight 81.[address] Mayda Garcia Work Phone: [facility] 03-29-2022 10:32-0500 Diastolic blood pressure 93 mm[Hg] Dr. Mayda Garcia Work Phone: [facility] 03-29-2022 10:32-0500 Heart rate 88 /min Dr. Mayda Garcia Work Phone: [facility] 03-29-2022 10:32-0500 Respiratory rate 18 /min Dr. Mayda Garcia Work Phone: [facility] 03-29-2022 10:32-0500 SaO2% (BldA) [Mass fraction] 100 % Dr. Mayda Garcia Work Phone: [facility] 03-29-2022 10:32-0500 Systolic blood pressure 151 mm[Hg] Dr. Mayda Garcia Work Phone: [facility] 03-14-2022 20:13-0500 Diastolic blood pressure 85 mm[Hg] Dr. Mayda Garcia Work Phone: [facility] 03-14-2022 20:13-0500 Heart rate 93 /min Dr. Mayda Garcia Work Phone: [facility] 03-14-2022 20:13-0500 Respiratory rate 18 /min Dr. Mayda Garcia Work Phone: [facility] 03-14-2022 20:13-0500 SaO2% (BldA) [Mass fraction] 98 % Dr. Mayda Garcia Work Phone: [facility] 03-14-2022 20:13-0500 Systolic blood pressure 150 mm[Hg] Dr. Mayda Garcia Work Phone: [facility] 03-14-2022 16:12-0500 Body height 157.[address] Mayda Garcia Work Phone: [facility] Work Phone: 03-14-2022 16:12-0500 Body mass index (BMI) [Ratio] 33 kg/m2 Dr. Mayda Garcia Work Phone: [facility] 03-14-2022 16:12-0500 Body temperature 97.1 [degF] Dr. Mayda Garcia Work Phone: [facility] 03-14-2022 16:12-0500 Body weight 81.[address] Mayda Garcia Work Phone: [facility] 03-10-2022 10:13-0500 Body mass index (BMI) [Ratio] 33.3 kg/m2 Dr. Mayda Garcia Work Phone: [facility] 03-10-2022 10:13-0500 Body temperature 98.2 [degF] Dr. Mayda Garcia Work Phone: [facility] 03-10-2022 10:13-0500 Body weight 82.[address] Mayda Garcia Work Phone: [facility] 03-10-2022 10:13-0500 Diastolic blood pressure 76 mm[Hg] Dr. Mayda Garcia Work Phone: [facility] 03-10-2022 10:13-0500 Heart rate 94 /min Dr. Mayda Garica Work Phone: [facility] 03-10-2022 10:13-0500 Respiratory rate 18 /min Dr. Mayda Garcia Work Phone: [facility] 03-10-2022 10:13-0500 SaO2% (BldA) [Mass fraction] 96 % Dr. Mayda Garcia Work Phone: [facility] 03-10-2022 10:13-0500 Systolic blood pressure 118 mm[Hg] Dr. Mayda Garcia Work Phone: [facility] 01-14-2022 12:21-0400 Body height 157.[address] Mayda Garcia Work Phone: [facility] Work Phone: 01-14-2022 12:21-0400 Body mass index (BMI) [Ratio] 31.6 kg/m2 Dr. Mayda Garcia Work Phone: [facility] Work Phone: 01-14-2022 12:21-0400 Body weight 78.[address] Mayda Garcia Work Phone: [facility] Work Phone: 01-14-2022 12:21-0400 Diastolic blood pressure 80 mm[Hg] Dr. Mayda Garcia Work Phone: [facility] Work Phone: 01-14-2022 12:21-0400 Heart rate 102 /min Dr. Mayda Garcia Work Phone: [facility] Work Phone: 01-14-2022 12:21-0400 Respiratory rate 16 /min Dr. Mayda Garcia Work Phone: [facility] Work Phone: 01-14-2022 12:21-0400 SaO2% (BldA) [Mass fraction] 98 % Dr. Mayda Garcia Work Phone: [facility] Work Phone: 01-14-2022 12:21-0400 Systolic blood pressure 130 mm[Hg] Dr. Mayda Garcia Work Phone: [facility] Work Phone: 01-10-2022 09:51-0400 Body mass index (BMI) [Ratio] 32.1 kg/m2 Dr. Mayda Garcia Work Phone: [facility] Work Phone: 01-10-2022 09:51-0400 Body temperature 97 [degF] Dr. Mayda Garcia Work Phone: [facility] Work Phone: 01-10-2022 09:51-0400 Body weight 79.[address] Mayda Garcia Work Phone: [facility] Work Phone: 01-10-2022 09:51-0400 Diastolic blood pressure 78 mm[Hg] Dr. Mayda Garcia Work Phone: [facility] Work Phone: 01-10-2022 09:51-0400 Heart rate 80 /min Dr. Mayda Garcia Work Phone: [facility] Work Phone: 01-10-2022 09:51-0400 Respiratory rate 16 /min Dr. Mayda Garcia Work Phone: [facility] Work Phone: 01-10-2022 09:51-0400 SaO2% (BldA) [Mass fraction] 98 % Dr. Mayda Garcia Work Phone: [facility] Work Phone: 01-10-2022 09:51-0400 Systolic blood pressure 100 mm[Hg] Dr. Mayda Garcia Work Phone: [facility] Work Phone: 01-03-2022 13:14-0400 Body temperature 97.3 [degF] Dr. Mayda Garcia Work Phone: [facility] Work Phone: 01-03-2022 13:14-0400 Diastolic blood pressure 77 mm[Hg] Dr. Mayda Garcia Work Phone: [facility] Work Phone: 01-03-2022 13:14-0400 Heart rate 77 /min Dr. Mayda Garcia Work Phone: [facility] Work Phone: 01-03-2022 13:14-0400 Respiratory rate 18 /min Dr. Mayda Garcia Work Phone: [facility] Work Phone: 01-03-2022 13:14-0400 SaO2% (BldA) [Mass fraction] 99 % Dr. Mayda Garcia Work Phone: [facility] Work Phone: 01-03-2022 13:14-0400 Systolic blood pressure 123 mm[Hg] Dr. Mayda Garcia Work Phone: [facility] Work Phone: 01-03-2022 06:00-0400 Body weight 81.[address] Mayda Garcia Work Phone: [facility] Work Phone: 01-02-2022 12:50-0400 Body height 157.[address] Mayda Garcia Work Phone: [facility] Work Phone: 01-02-2022 12:50-0400 Body mass index (BMI) [Ratio] 32.7 kg/m2 Dr. Mayda Garcia Work Phone: [facility] Work Phone: 12-23-2021 15:00-0400 Body mass index (BMI) [Ratio] 30.4 kg/m2 Dr. Mayda Garcia Work Phone: [facility] Work Phone: 12-23-2021 15:00-0400 Body temperature 98.7 [degF] Dr. Mayda Garcia Work Phone: [facility] Work Phone: 12-23-2021 15:00-0400 Body weight 80.[address] Mayda Garcia Work Phone: [facility] Work Phone: 12-23-2021 15:00-0400 Diastolic blood pressure 64 mm[Hg] Dr. Mayda Garcia Work Phone: [facility] Work Phone: 12-23-2021 15:00-0400 Heart rate 92 /min Dr. Mayda Garcia Work Phone: [facility] Work Phone: 12-23-2021 15:00-0400 Respiratory rate 18 /min Dr. Mayda Garcia Work Phone: [facility] Work Phone: 12-23-2021 15:00-0400 SaO2% (BldA) [Mass fraction] 97 % Dr. Mayda Garcia Work Phone: [facility] Work Phone: 12-23-2021 15:00-0400 Systolic blood pressure 140 mm[Hg] Dr. Mayda Garcia Work Phone: [facility] Work Phone: 12-17-2021 05:21-0400 Diastolic blood pressure 62 mm[Hg] Dr. Mayda Garcia Work Phone: [facility] Work Phone: 12-17-2021 05:21-0400 Heart rate 97 /min Dr. Mayda Garcia Work Phone: [facility] Work Phone: 12-17-2021 05:21-0400 Respiratory rate 18 /min Dr. Mayda Garcia Work Phone: [facility] Work Phone: 12-17-2021 05:21-0400 SaO2% (BldA) [Mass fraction] 98 % Dr. Mayda Garcia Work Phone: [facility] Work Phone: 12-17-2021 05:21-0400 Systolic blood pressure 154 mm[Hg] Dr. Mayda Garcia Work Phone: [facility] Work Phone: 12-17-2021 03:52-0400 Body height 162.[address] Mayda Garcia Work Phone: [facility] Work Phone: 12-17-2021 03:52-0400 Body mass index (BMI) [Ratio] 31 kg/m2 Dr. Mayda Garcia Work Phone: [facility] Work Phone: 12-17-2021 03:52-0400 Body temperature 97.8 [degF] Dr. Mayda Garcia Work Phone: [facility] Work Phone: 12-17-2021 03:52-0400 Body weight 82.[address] Mayda Garcia Work Phone: [facility] Work Phone: 11-28-2021 19:34-0400 Body height 187.[address] Mayda Garcia Work Phone: [facility] Work Phone: 11-28-2021 19:34-0400 Body mass index (BMI) [Ratio] 22.4 kg/m2 Dr. Mayda Garcia Work Phone: [facility] Work Phone: 11-28-2021 19:34-0400 Body temperature 98.6 [degF] Dr. Mayda Garcia Work Phone: [facility] Work Phone: 11-28-2021 19:34-0400 Body weight 79.[address] Mayda Garcia Work Phone: [facility] Work Phone: 11-28-2021 19:34-0400 Diastolic blood pressure 74 mm[Hg] Dr. Mayda Garcia Work Phone: [facility] Work Phone: 11-28-2021 19:34-0400 Heart rate 109 /min Dr. Mayda Garcia Work Phone: [facility] Work Phone: 11-28-2021 19:34-0400 Respiratory rate 18 /min Dr. Mayda Garcia Work Phone: [facility] Work Phone: 11-28-2021 19:34-0400 SaO2% (BldA) [Mass fraction] 99 % Dr. Mayda Garcia Work Phone: [facility] Work Phone: 11-28-2021 19:34-0400 Systolic blood pressure 167 mm[Hg] Dr. Mayda Garcia Work Phone: [facility] Work Phone: 11-06-2021 16:11-0400 Body mass index (BMI) [Ratio] 32.5 kg/m2 Dr. Mayda Garcia Work Phone: [facility] Work Phone: 11-06-2021 16:11-0400 Body temperature 98.4 [degF] Dr. Mayda Garcia Work Phone: [facility] Work Phone: 11-06-2021 16:11-0400 Body weight 80.[address] Mayda Garcia Work Phone: [facility] Work Phone: 11-06-2021 16:11-0400 Diastolic blood pressure 70 mm[Hg] Dr. Mayda Garcia Work Phone: [facility] Work Phone: 11-06-2021 16:11-0400 Heart rate 97 /min Dr. Mayda Garcia Work Phone: [facility] Work Phone: 11-06-2021 16:11-0400 Respiratory rate 18 /min Dr. Mayda Garcia Work Phone: [facility] Work Phone: 11-06-2021 16:11-0400 SaO2% (BldA) [Mass fraction] 97 % Dr. Mayda Garcia Work Phone: [facility] Work Phone: 11-06-2021 16:11-0400 Systolic blood pressure 130 mm[Hg] Dr. Mayda Garcia Work Phone: [facility] Work Phone: 11-05-2021 10:56-0400 Body mass index (BMI) [Ratio] 32.3 kg/m2 Dr. Mayda Garcia Work Phone: [facility] Work Phone: 11-05-2021 10:56-0400 Body temperature 97.4 [degF] Dr. Mayda Garcia Work Phone: [facility] Work Phone: 11-05-2021 10:56-0400 Body weight 80.[address] Mayda Garcia Work Phone: [facility] Work Phone: 11-05-2021 10:56-0400 Diastolic blood pressure 78 mm[Hg] Dr. Mayda Garcia Work Phone: [facility] Work Phone: 11-05-2021 10:56-0400 Heart rate 91 /min Dr. Mayda Garcia Work Phone: [facility] Work Phone: 11-05-2021 10:56-0400 Respiratory rate 16 /min Dr. Mayda Garcia Work Phone: [facility] Work Phone: 11-05-2021 10:56-0400 SaO2% (BldA) [Mass fraction] 98 % Dr. Mayda Garcia Work Phone: [facility] Work Phone: 11-05-2021 10:56-0400 Systolic blood pressure 144 mm[Hg] Dr. Mayda Garcia Work Phone: [facility] Work Phone: 10-25-2021 15:34-0400 Body temperature 98.9 [degF] Dr. Mayda Garcia Work Phone: [facility] Work Phone: 10-25-2021 15:34-0400 Diastolic blood pressure 64 mm[Hg] Dr. Mayda Garcia Work Phone: [facility] Work Phone: 10-25-2021 15:34-0400 Heart rate 78 /min Dr. Mayda Garcia Work Phone: [facility] Work Phone: 10-25-2021 15:34-0400 Respiratory rate 12 /min Dr. Mayda Garcia Work Phone: [facility] Work Phone: 10-25-2021 15:34-0400 SaO2% (BldA) [Mass fraction] 98 % Dr. Mayda Garcia Work Phone: [facility] Work Phone: 10-25-2021 15:34-0400 Systolic blood pressure 126 mm[Hg] Dr. Mayda Garcia Work Phone: [facility] Work Phone: 10-25-2021 13:34-0400 Body height 157.[address] Mayda Garcia Work Phone: [facility] Work Phone: 10-25-2021 13:34-0400 Body mass index (BMI) [Ratio] 32.9 kg/m2 Dr. Mayda Garcia Work Phone: [facility] Work Phone: 10-25-2021 13:34-0400 Body weight 81.[address] Mayda Garcia Work Phone: [facility] Work Phone: 10-17-2021 10:00-0400 Body mass index (BMI) [Ratio] 31.6 kg/m2 Dr. Mayda Garcia Work Phone: [facility] Work Phone: 10-17-2021 10:00-0400 Body weight 78.[address] Mayda Garcia Work Phone: [facility] Work Phone: 10-17-2021 10:00-0400 Diastolic blood pressure 60 mm[Hg] Dr. Mayda Garcia Work Phone: [facility] Work Phone: 10-17-2021 10:00-0400 Heart rate 79 /min Dr. Mayda Garcia Work Phone: [facility] Work Phone: 10-17-2021 10:00-0400 Respiratory rate 16 /min Dr. Mayda Garcia Work Phone: [facility] Work Phone: 10-17-2021 10:00-0400 SaO2% (BldA) [Mass fraction] 99 % Dr. Mayda Garcia Work Phone: [facility] Work Phone: 10-17-2021 10:00-0400 Systolic blood pressure 106 mm[Hg] Dr. Mayda Garcia Work Phone: [facility] Work Phone: 07-16-2021 13:57-0400 Body mass index (BMI) [Ratio] 32.4 kg/m2 Dr. Mayda Garcia Work Phone: [facility] Work Phone: 07-16-2021 13:57-0400 Diastolic blood pressure 84 mm[Hg] Dr. Mayda Garcia Work Phone: [facility] Work Phone: 07-16-2021 13:57-0400 Systolic blood pressure 150 mm[Hg] Dr. Mayda Garcia Work Phone: [facility] Work Phone: 07-16-2021 13:05-0400 Body weight 80.[address] Mayda Garcia Work Phone: [facility] Work Phone: 07-16-2021 13:05-0400 Heart rate 106 /min Dr. Mayda Garcia Work Phone: [facility] Work Phone: 07-16-2021 13:05-0400 SaO2% (BldA) [Mass fraction] 97 % Dr. Mayda Garcia Work Phone: [facility] Work Phone: Encounters Encounter Date Encounter Type Care Provider Facility Start: 10-20-2024 ambulatory Vanita Venegas NP Fac ility:[facility] Start: 10-03-2024 End: 10-03-2024 Dr. Pepe Ruiz MD -[facility] Work Phone: Start: 10-03-2024 End: 10-03-[address] Mayda Garcia MD Work Phone: [facility] Work Phone: Start: 09-28-2024 End: 09-28-2024 Vanita Venegas NP-C -[facility] Work Phone: Start: 09-28-2024 End: 09-28-[address] Mayda Garcia MD Work Phone: [facility] Work Phone: Start: 09-22-2024 End: 09-22-[address] Mayda Garcia MD Work Phone: [facility] Work Phone: Start: 09-22-2024 End: 09-22-2024 Dr. Mayda Garcia MD -Laboratory [facility] Start: 09-21-2024 End: 09-21-2024 Dr. Mayda Garcia MD -[facility] Work Phone: Start: 09-21-2024 End: 09-22-[address] Mayda Garcia MD Work Phone: [facility] Work Phone: Start: 09-19-2024 End: 09-19-2024 Mikhail LÓPEZ -[facility] Work Phone: Start: 09-19-2024 End: 09-19-[address] Mayda Garcia MD Work Phone: [facility] Work Phone: Start: 09-16-2024 End: 09-16-2024 Dr. Mayda Garcia MD Work Phone: -Emergency Department Work Phone: Start: 09-16-2024 End: 09-16-2024 Emergency department patient visit Dr. Mayda Garcia MD Work Phone: [facility] Work Phone: Start: 08-11-2024 ambulatory Mayda Garcia Facili ty:[facility] Start: 08-10-2024 End: 08-10-2024 Dr. Mayda Garcia MD -[facility] Work Phone: Start: 08-10-2024 End: 08-10-2024 ambulatory Mayda Garcia Facility:[facility] Start: 07-22-2024 ambulatory Aleksandr Toledo Facili ty:[facility] Start: 07-15-2024 End: 07-15-2024 Dr. Mayda Garcia MD Work Phone: -Emergency Department Work Phone: Start: 07-15-2024 End: 07-15-2024 Emergency department patient visit Dr. Mayda Garcia MD Work Phone: [facility] Work Phone: Start: 07-14-2024 End: 07-14-2024 Emergency department patient visit Dr. Mayda Garcia MD Work Phone: [facility] Work Phone: Start: 07-14-2024 End: 07-14-2024 Dr. Mayda Garcia MD Work Phone: -Emergency Department Work Phone: Start: 07-05-2024 End: 07-05-2024 Dr. Pepe Ruiz MD -[facility] Work Phone: Start: 07-05-2024 End: 07-05-2024 [facility] Start: 06-22-2024 End: 06-22-2024 Dr. Yee Rowland MD -Laboratory, [place] Work Phone: Start: 06-22-2024 End: 06-22-2024 ambulatory [facility] Facility:[facility] Start: 06-07-2024 End: 06-07-2024 Dr. Mayda Garcia MD -Outpatient Breast Imaging Work Phone: Start: 06-07-2024 End: 06-07-2024 ambulatory [facility] Facility:[facility] Start: 05-20-2024 End: 05-20-2024 Dr. Mayda Garcia MD -[facility] Work Phone: Start: 05-20-2024 End: 05-20-2024 ambulatory [facility] Facility:[facility] Start: 05-16-2024 End: 05-16-2024 Dr. Pepe Ruiz MD -Laboratory, [place] Work Phone: Start: 05-16-2024 End: 05-16-2024 Dr. Pepe Ruiz MD -[facility] Work Phone: Start: 05-16-2024 End: 05-16-2024 ambulatory Efewongbe Oleghe Facility:[facility] Start: 05-16-2024 End: 05-16-2024 ambulatory Efewongbe Oletoyae Facility:[facility] Start: 04-25-2024 ambulatory Vanita Venegas [employer] Fac ility:[facility] Start: 04-25-2024 Dr. Russell Jang DO -[facility] -PMW Start: 04-21-2024 End: 04-21-2024 Dr. Pepe Ruiz MD -[facility] Work Phone: Start: 04-21-2024 End: 04-21-2024 ambulatory Efewongbe Oletoyae Facility:[facility] Start: 04-20-2024 End: 04-20-2024 Vanita Venegas [employer]-C -Pulmonary Services/Neurology Work Phone: Start: 04-19-2024 End: 04-19-2024 Dr. Winston Johnson MD -[facility] Work Phone: Start: 04-19-2024 End: 04-20-2024 ambulatory Vanita Venegas [employer] Facility:[facility] Start: 04-04-2024 ambulatory Vanita Venegas [employer] Fac ility:[facility] Start: 02-19-2024 End: 02-19-2024 ambulatory Janee Dumonto Facility:[facility] Start: 02-19-2024 End: 02-19-2024 [facility] Start: 02-14-2024 End: 02-14-2024 Emergency department patient visit Ulisses Rocio Facility:[facility] Start: 01-19-2024 End: 01-19-2024 ambulatory Efewongbe Oletoyae Facility:[facility] Start: 01-05-2024 End: 01-05-2024 ambulatory Efewongbe Oleghe Facility:[facility] Start: 12-23-2023 End: 12-23-2023 ambulatory Efewongbe Oleghe Facility:[facility] Start: 12-21-2023 ambulatory Mynor LÓPEZ Facilit y:[facility] Start: 12-16-2023 End: 12-17-2023 ambulatory Vanita Venegas [employer] Facility:[facility] Start: 12-07-2023 End: 12-07-2023 ambulatory Vanita Venegas [employer] Facility:[facility] Start: 12-02-2023 End: 12-02-2023 ambulatory Mynor LÓPEZ Facility:[facility] Start: 12-02-2023 End: 12-02-2023 ambulatory Mayda Garcia Facility:[facility] Start: 11-16-2023 ambulatory Mayda Garcia Facili ty:[facility] Start: 11-16-2023 ambulatory Maurilio Bradford Facility:[facility] Start: 11-15-2023 End: 11-18-2023 ambulatory [facility] Facility:[facility] Start: 10-26-2023 End: 10-26-2023 ambulatory Norisabiolaconsuelo Espinozachandana Facility:[facility] Start: 09-07-2023 End: 09-07-[address] Mayda Garcia Work Phone: [facility] Work Phone: Start: 09-07-2023 End: 09-07-[address] Mayda Garcia Work Phone: [facility] Work Phone: Start: 08-19-2023 End: 08-19-[address] Mayda Garcia Work Phone: [facility] Internal Medicine Work Phone: Start: 08-19-2023 End: 09-01-[address] Mayda Garcia Work Phone: [facility] Work Phone: Start: 08-19-2023 End: 09-01-[address] Mayda Garcia Work Phone: [facility]-Cardiac Rehab Work Phone: Start: 08-19-[address] Susan Garcia Work Phone: [facility]-Cardiac Rehab Work Phone: Start: 08-14-2023 End: 08-14-[address] Mayda Garcia Work Phone: [facility] Work Phone: Start: 08-14-2023 End: 08-14-[address] Mayda Garcia Work Phone: [facility]-Cat Scan, [facility] Work Phone: Start: 08-10-2023 End: 08-10-[address] Mayda Garcia Work Phone: [facility] Work Phone: Start: 08-10-2023 End: 08-10-[address] Mayda Garcia Work Phone: [facility]-Nuclear Medicine, [facility] Work Phone: Start: 08-10-[address] Susan Garcia Work Phone: [facility]-Cardiac Rehab Work Phone: Start: 07-31-2023 End: 08-02-[address] Mayda Garcia Work Phone: [facility] Work Phone: Start: 07-31-2023 End: 08-02-[address] Mayda Garcia Work Phone: [facility]-Cardiac Rehab Work Phone: Start: 07-30-2023 End: 07-30-[address] Mayda Garcia Work Phone: [facility] Gastroenterology Work Phone: Start: 07-27-[address] Susan Garcia Work Phone: [facility]-Cardiac Rehab Work Phone: Start: 07-23-2023 End: 07-23-[address] Mayda Garcia Work Phone: [facility] Internal Medicine Work Phone: Start: 07-21-2023 End: 07-21-[address] Mayda Garcia Work Phone: [facility] Work Phone: Start: 07-21-2023 End: 07-21-[address] Mayda Garcia Work Phone: [facility]-Sleep Lab Work Phone: Start: 07-21-2023 End: 07-21-[address] Mayda Garcia Work Phone: [facility] Work Phone: Start: 07-21-2023 End: 07-21-[address] Mayda Garcia Work Phone: [facility]-Outpatient Bone Densitometry Work Phone: Start: 07-20-2023 End: 07-20-[address] Mayda Garcia Work Phone: [facility] Neurology Work Phone: Start: 07-01-2023 End: 07-02-[address] Mayda Garcia Work Phone: [facility] Work Phone: Start: 07-01-2023 End: 07-02-[address] Mayda Garcia Work Phone: [facility]-Cardiac Rehab Work Phone: Start: 07-01-[address] Susan Garcia Work Phone: [facility]-Cardiac Rehab Work Phone: Start: 06-25-2023 End: 06-25-[address] Mayda Garcia Work Phone: [facility] Work Phone: Start: 06-25-2023 End: 06-25-[address] Mayda Garcia Work Phone: [facility]-Sleep Lab Work Phone: Start: 06-22-[address] Susan Garcia Work Phone: [facility]-Cardiac Rehab Work Phone: Start: 06-17-2023 End: 06-17-[address] Mayda Garcia Work Phone: [facility] Work Phone: Start: 06-17-2023 End: 06-17-[address] Mayda Garcia Work Phone: [facility] Internal Medicine Work Phone: Start: 06-10-2023 End: 06-10-[address] Mayda Garcia Work Phone: [facility]-Pulmonary Medicine [facility] Work Phone: Start: 06-01-2023 End: 06-01-[address] aMyda Garcia Work Phone: [facility] Work Phone: Start: 06-01-2023 End: 06-01-[address] Mayda Garcia Work Phone: [facility]-Cardiac Rehab Work Phone: Start: 05-25-2023 End: 05-25-[address] Mayda Garcia Work Phone: [facility] Work Phone: Start: 05-25-2023 End: 05-25-[address] Mayda Garcia Work Phone: [facility]-Outpatient Breast Imaging Work Phone: Start: 05-20-2023 End: 05-20-[address] Mayda Garcia Work Phone: [facility] Orthopaedic Specia Work Phone: Start: 05-18-2023 End: 05-18-[address] Mayda Garcia Work Phone: [facility] Neurology Work Phone: Start: 04-16-2023 End: 04-16-[address] Mayda Garcia Work Phone: [facility] Neurology Work Phone: Start: 04-08-2023 Non-patient / Non-visit Dr. Jia Garcia Work Phone: [facility] Start: 03-30-2023 End: 03-30-[address] Mayda Garcia Work Phone: [facility] Work Phone: Start: 03-30-2023 End: 03-30-[address] Mayda Garcia Work Phone: [facility] Work Phone: Start: 03-30-2023 End: 03-30-2023 Dr. Mayda Garcia Work Phone: [facility] Work Phone: Start: 03-19-2023 End: 03-19-[address] Mayda Garcia Work Phone: [facility] Work Phone: Start: 03-19-2023 End: 03-19-2023 Dr. Mayda Garcia Work Phone: [facility] Work Phone: Start: 03-16-2023 End: 03-16-[address] Mayda Garcia Work Phone: [facility] Internal Medicine Work Phone: Start: 03-16-2023 End: 03-16-2023 Dr. Mayda Garcia Work Phone: [facility] Internal Medicine Work Phone: Start: 02-18-2023 End: 02-18-[address] Mayda Garcia Work Phone: [facility] Work Phone: Start: 02-18-2023 End: 02-18-[address] Mayda Garcia Work Phone: [facility] Work Phone: Start: 02-18-2023 End: 02-18-2023 Dr. Mayda Garcia Work Phone: [facility] Work Phone: Start: 02-18-2023 End: 02-18-[address] Mayda Garcia Work Phone: [facility] Work Phone: Start: 02-18-2023 End: 02-18-2023 Dr. Mayda Garcia Work Phone: [facility] Work Phone: Start: 02-11-2023 End: 02-11-[address] Mayda Garcia Work Phone: [facility] Neurology Work Phone: Start: 02-11-2023 End: 02-11-2023 Dr. Mayda Garcia Work Phone: [facility] Neurology Work Phone: Start: 02-04-2023 End: 02-04-[address] [facility] Start: 02-04-2023 End: 02-04-2023 Dr. Mayda Garcia Work Phone: [facility] [place] Start: 02-04-2023 End: 02-04-[address] Mayda Garcia Work Phone: [facility] Internal Medicine Work Phone: Start: 02-04-2023 End: 02-04-2023 Dr. Mayda Garcia Work Phone: [facility] Internal Medicine Work Phone: Start: 01-27-2023 End: 01-27-2023 Postop follow up visit related to original px Kassy Ken CNP Work Phone: [facility] Comment on above: S/P CABG (coronary a rtery bypass graft) (Primary Dx) Start: 01-11-2023 End: 01-26-2023 Evaluation and management of inpatient Dr. Mayda Garcia Work Phone: [facility]-Transitional Care Unit Start: 01-11-2023 End: 01-26-2023 Dr. [facility] Start: 01-01-2023 Evaluation and management of inpatient AZAM ROSE [facility] Start: 01-01-2023 End: 01-11-2023 Evaluation and management of inpatient Azam Rose MD Work Phone: [facility] Comment on above: S/P CABG (coronary a rtery bypass graft) (Primary Dx); CAD in [place] artery; Coronary artery disease involving coronary bypass graft, unspecified whether angina present, unspecified whether [place] or transplanted heart Start: 12-29-2022 End: 12-29-2022 Encounter for other preprocedural examination AZAM ROSE [facility] Start: 12-29-2022 End: 12-30-2022 ambulatory AZAM ROSE [facility] Start: 12-29-2022 End: 12-29-2022 Preoperative state [facility]am [facility] Start: 12-29-2022 End: 12-29-2022 Subsequent hospital visit by physician Azam Rose MD Work Phone: [facility] Comment on above: Preoperative clearan ce Start: 12-24-2022 Admission to [facility] Kassy Tabares NET DEVELOPER PROGRAMMER - AROMATHERAPIST Work Phone: [facility] Comment on above: CAD in [place] artery (Primary Dx); Preoperative clearance Start: 12-24-2022 ambulatory Kassy Tabares NET DEVELOPER PROGRAMMER - AROMATHERAPIST Work Phone: [facility] Start: 12-24-2022 Preoperative state Kassylee reese NET DEVELOPER PROGRAMMER - AROMATHERAPIST [facility]: Start: 12-23-2022 Telephone encounter Azam fenton MD Work Phone: [facility] Comment on above: Surgery Scheduling Start: 12-23-2022 End: 12-23-2022 ambulatory AZAM ROSE [facility] Start: 12-23-2022 End: 12-23-2022 Office outpatient new 60 minutes Azam Rose MD Work Phone: [facility] Comment on above: 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 Jia Garcia Work Phone: [facility] Work Phone: Start: 12-19-2022 Dr. Mayda Garcia Work Phone: [facility] Work Phone: Start: 12-19-2022 Non-patient / Non-visit Dr. Jia Garcia Work Phone: [facility] Start: 12-19-2022 Dr. Mayda Garcia Work Phone: [facility] Start: 12-18-2022 Non-patient / Non-visit Dr. Jia Garcia Work Phone: [facility] Work Phone: Start: 12-18-2022 Dr. Mayda Garcia Work Phone: [facility] Work Phone: Start: 12-18-2022 End: 12-19-2022 Evaluation and management of inpatient Dr. Mayda Garcia Work Phone: [facility] Work Phone: Start: 12-18-2022 End: 12-19-[address] Mayda Garcia Work Phone: [facility] Work Phone: Start: 12-18-2022 End: 12-19-2022 Dr. [facility] Work [facility]: Start: 12-18-2022 Evaluation and management of inpatient Dr. Mayda Garcia [facility] Work [facility]: Start: 12-16-2022 End: 12-16-[address] Mayda Garcia Work Phone: [facility] Work Phone: Start: 12-16-2022 End: 12-16-[address] Mayda Garcia Work Phone: [facility] Work Phone: Start: 12-16-2022 End: 12-16-2022 Dr. Mayda Garcia Work Phone: [facility] Work Phone: Start: 12-11-2022 End: 12-11-2022 Patient encounter procedure Dr. Mayda Garcia Work Phone: [facility] Internal Medicine Work Phone: Start: 12-11-2022 End: 12-11-2022 Dr. Mayda Garcia Work Phone: [facility] Internal Medicine Work Phone: Start: 11-19-2022 End: 11-19-[address] Mayda Garcia Work Phone: [facility] Work Phone: Start: 11-19-2022 End: 11-19-2022 Dr. Mayda Garcia Work Phone: [facility] Work Phone: Start: 10-10-2022 End: 10-10-[address] Mayda Garcia Work Phone: [facility] Orthopaedic [facility] Work Phone: Start: 10-03-2022 End: 10-03-[address] Mayda Garcia Work Phone: [facility] Work Phone: Start: 10-03-2022 End: 10-03-[address] Mayda Garcia Work Phone[facility] Start: 10-03-2022 End: 10-03-[address] Mayda Garcia Work Phone: [facility] Internal Medicine Start: 10-02-2022 End: 10-02-[address] Mayda Garcia Work Phone: [facility] Neurology Start: 10-01-2022 End: 10-01-[address] Mayda Garcia Work Phone: [facility] Work Phone: Start: 10-01-2022 End: 10-01-[address] Mayda Garcia Work Phone: [facility] [place] Start: 08-22-2022 End: 08-22-[address] Mayda Garcia Work Phone: [facility] Internal Medicine Start: 08-13-2022 End: 08-14-2022 Emergency department patient visit Dr. Mayda Garcia Work Phone: [facility]-Emergency Department Start: 07-16-2022 End: 07-16-[address] Mayda Garcia Work Phone: [facility] Internal Medicine Start: 06-30-2022 End: 06-30-[address] Mayda Garcia Work Phone: [facility] Internal Medicine Start: 06-09-2022 End: 06-09-[address] Mayda Garcia Work Phone: [facility] Internal Medicine Start: 06-07-2022 End: 06-07-2022 Emergency department patient visit Dr. Mayda Garcia Work Phone: [facility]-Emergency Department Start: 06-06-2022 End: 06-06-2022 Emergency department patient visit Dr. Mayda Garcia Work Phone: [facility]-Emergency Department Start: 05-06-2022 End: 05-06-[address] Mayda Garcia Work Phone: [facility] Work Phone: Start: 05-06-2022 End: 05-06-[address] Mayda Garcia Work Phone: [facility] Internal Medicine Start: 04-02-2022 End: 04-02-[address] Mayda Garcia Work Phone: [facility] Internal Medicine Start: 03-29-2022 End: 03-29-2022 Emergency department patient visit Dr. Mayda Garcia Work Phone: [facility]-Emergency Department Start: 03-14-2022 End: 03-14-2022 Emergency department patient visit Dr. Mayda Garcia Work Phone: [facility]-Emergency Department Start: 03-10-2022 End: 03-10-[address] [facility] Start: 02-21-2022 End: 02-21-[address] Mayda Garcia Work Phone: [facility] Work Phone: Start: 02-21-2022 End: 02-21-[address] Mayda Garcia Work Phone: [facility]-Physical Therapy Start: 01-14-2022 End: 01-14-[address] Mayda Garcia Work Phone: [facility] Start: 01-10-2022 End: 01-10-[address] Mayda Garcia Work Phone: [facility] Work Phone: Start: 01-10-2022 End: 01-10-[address] Mayda Garcia Work Phone: [facility] Internal Medicine Start: 01-03-2022 Non-patient / Non-visit Dr. Jia Garcia Work Phone: [facility] Inpatient Physicians Start: 01-03-2022 Non-patient / Non-visit Dr. Jia Garcia Work Phone: [facility] Start: 01-02-2022 Non-patient / Non-visit Dr. Jia Garcia Work Phone: [facility] Inpatient Physicians Start: 01-02-2022 End: 01-03-2022 Evaluation and management of inpatient Dr. Mayda Garcia Work Phone: [facility]-Progressive Care Unit Start: 01-02-2022 End: 01-03-[address] Mayda Garcia Work Phone: [facility] Work Phone: Start: 01-02-2022 Non-patient / Non-visit Dr. Jia Garcia Work Phone: [facility] Start: 12-23-2021 End: 12-23-[address] Mayda Garcia Work Phone: [facility] Internal Medicine Start: 12-17-2021 End: 12-17-2021 Emergency department patient visit Dr. Mayda Garcia Work Phone: [facility]-Emergency Department Start: 12-12-2021 End: 12-12-[address] Mayda Garcia Work Phone: [facility]-Outpatient Breast Imaging Start: 11-29-2021 Non-patient / Non-visit Dr. Jia Lozano Phone: [facility] Start: 11-29-2021 End: 11-29-[address] Mayda Lozano Phone: [facility]-Cardiovascular Services Start: 11-28-2021 End: 11-28-2021 Emergency department patient visit Dr. Mayda Lozano Phone: [facility]-Emergency Department Start: 11-06-[address] Mayda Lozano Phone: [facility] Start: 11-06-2021 End: 11-06-2021 Encounter for general adult medical examination without abnormal findings Dr. Mayda Lozano Phone: [facility] Internal Medicine Start: 11-06-2021 End: 11-06-[address] Mayda Lozano Phone: [facility] Internal Medicine Start: 11-05-2021 End: 11-05-[address] [facility] Start: 10-25-2021 End: 10-25-2021 Emergency department patient visit Dr. Mayda Lozano Phone: [facility]-Emergency Department Start: 10-17-2021 End: 10-17-[address] Mayda Lozano Phone: [facility] Neurology Start: 07-18-2021 End: 07-18-[address] Mayda Lozano Phone: [facility]-Physical Therapy Start: 07-16-2021 End: 07-16-[address] Mayda Lozano Phone: [facility] Neurology Start: 07-10-2021 End: 07-10-[address] Mayda Garcia Work Phone: [facility] Start: 10-02-[address] Mayda Garcia Work Phone: [facility] Start: 02-25-2018 End: 03-01-2018 Patient encounter procedure TILA (PT) [facility] Start: 02-22-2018 End: 02-22-2018 Patient encounter procedure JOSSUE [facility] Start: 02-18-2018 End: 02-22-2018 Patient encounter procedure TILA (PT) [facility] Start: 02-11-2018 End: 02-12-2018 Patient encounter procedure TILA (PT) [facility] Start: 02-09-2018 [facility] Start: 02-04-2018 End: 02-04-2018 Patient encounter procedure TILA (PT) [facility] Start: 02-02-2018 End: 02-03-2018 Patient encounter procedure TILA (PT) [facility] Start: 01-28-2018 End: 02-01-2018 Patient encounter procedure TILA (PT) [facility] Start: 01-26-2018 End: 01-27-2018 Patient encounter procedure TILA (PT) [facility] Start: 01-21-2018 End: 01-25-2018 Patient encounter procedure TILA (PT) [facility] Start: 01-14-2018 Patient encounter procedure TILA (PT) [facility] Start: 01-12-2018 End: 01-13-2018 Patient encounter procedure TILA (PT) [facility] Start: 01-11-2018 End: 01-11-2018 Patient encounter procedure MYNOR FLOR[facility] Start: 01-07-2018 End: 01-08-2018 Patient encounter procedure TILA (PT) [facility] Start: 01-05-2018 End: 01-06-2018 Patient encounter procedure TILA (PT) [facility] Start: 12-17-2017 End: 12-17-2017 Patient encounter procedure MYNOR FLORES [facility] Start: 12-09-2017 End: 12-09-2017 Patient encounter procedure MYNOR FLORES [facility] Start: 10-15-2017 End: 10-16-2017 Patient encounter procedure JOSSUE [facility] Start: 10-14-2017 End: 10-14-2017 Patient encounter procedure JOSSUE FINLEY [facility] Start: 07-20-2017 End: 07-20-2017 Patient encounter procedure GLEN (PRINTING GREY CLOTH TENDER) JULIO [facility] Start: 02-09-2017 End: 02-09-2017 Ambulatory CHRIS Chandana NAJMA [facility] Procedures Date Procedure Procedure Detail Performing Clinician Start: 09-22-[address] Mayda Garcia MD Work Phone: Start: 09-22-2024 Antibody to centromere measurement Dr. Mayda Garcia MD Work Phone: Start: 09-22-2024 Antibody to extractable nuclear antigen measurement Dr. Mayda Garcia MD Work Phone: Start: 09-22-2024 Antibody to DOROTEO-[address] Mayda Garcia MD Work Phone: Start: 09-22-2024 Antibody to lupus La protein measurement Dr. Mayda Garcia MD Work Phone: Start: 09-22-2024 Antibody to SS-A measurement Dr. Mayda Garcia MD Work Phone: Start: 09-22-[address] Mayda alanis MD Work Phone: Start: 09-22-2024 Blood count smear mcrscp w/mnl difrntl wbc count Dr. Mayda Garcia MD Work Phone: Start: 09-22-2024 Mean corpuscular hemoglobin concentration determination Dr. Mayda Garcia MD Work Phone: Start: 09-22-2024 Nucleated red blood cell count procedure Dr. Mayda Garcia MD Work Phone: Start: 09-22-2024 Platelet mean volume determination Dr. Mayda Garcia MD Work Phone: Start: 09-22-2024 [employer] S[employer] CLERK antibody measurement Dr. Mayda alanis MD Work Phone: Start: 09-22-2024 Total cholesterol:HDL ratio measurement Dr. Mayda Garcia MD Work Phone: Start: 09-16-2024 Plain chest X-ray Dr. Mayda Garcia MD Work Phone: Start: 09-16-2024 Blood count smear mcrscp w/mnl difrntl wbc count Dr. Mayda Garcia MD Work Phone: Start: 09-16-2024 Mean corpuscular hemoglobin concentration determination Dr. Mayda Garcia MD Work Phone: Start: 09-16-2024 Nucleated red blood cell count procedure Dr. Mayda Garcia MD Work Phone: Start: 09-16-2024 Platelet mean volume determination Dr. Mayda Garcia MD Work Phone: Start: 09-16-2024 Measurement of occult blood in stool specimen using immunoassay Dr. Mayda Garcia MD Work Phone: Start: 07-15-2024 X-ray of chest, PA and lateral views Dr. Mayda Garcia MD Work Phone: Start: 07-14-2024 CT of chest without contrast Dr. Mayda Garcia MD Work Phone: Start: 07-14-2024 Blood count smear mcrscp w/mnl difrntl wbc count Dr. Mayda Garcia MD Work Phone: Start: 07-14-[address] Mayda Garcia MD Work Phone: Start: 07-14-2024 Mean corpuscular hemoglobin concentration determination Dr. Mayda Garcia MD Work Phone: Start: 07-14-2024 Nucleated red blood cell count procedure Dr. Mayda Garcia MD Work Phone: Start: 07-14-2024 Platelet mean volume determination Dr. Mayda Garcia MD Work Phone: Start: 06-22-2024 Albumin/Globulin ratio Dr. Mayda tanner MD Work Phone: Start: 06-22-[address] Mayda alcaraz MD Work Phone: Start: 06-22-2024 Blood count smear mcrscp w/mnl difrntl wbc count Dr. Mayda Garcia MD Work Phone: Start: 06-22-2024 BUN/Creatinine ratio Dr. Mayda chance MD Work Phone: Start: 06-22-2024 Mean corpuscular hemoglobin concentration determination Dr. Mayda Garcia MD Work Phone: Start: 06-22-2024 Measurement of renal function Dr. Mayda Garcia MD Work Phone: Start: 06-22-2024 Nucleated red blood cell count procedure Dr. Mayda Garcia MD Work Phone: Start: 06-22-2024 Platelet mean volume determination Dr. Mayda Garcia MD Work Phone: Start: 06-07-[address] Mayda alcaraz MD Work Phone: Start: 08-14-2023 Computed tomography of abdomen and pelvis with contrast Dr. Mayda Garcia Work Phone: Start: 08-10-2023 Radionuclide gastric emptying study Dr. Mayda Garcia Work Phone: Start: 07-21-2023 Dual energy X-ray absorptiometry Dr. Mayda Garcia Work Phone: Start: 05-25-[address] Mayda alcaraz Work Phone: Start: 03-30-2023 Plain chest X-ray Dr. Mayda Garcia Work Phone: Start: 02-18-2023 Plain chest X-ray Dr. Mayda Garcia Work Phone: Start: 01-21-[address] Mayda Garcia Work Phone: Start: 01-16-2023 History of coronary artery bypass grafting S/P CABG (coronary artery bypass graft) Kassy Tabares NET DEVELOPER PROGRAMMER - AROMATHERAPIST Work Phone: Start: 01-10-2023 Glucose quantitative blood xcpt reagent strip Azam Rose MD Work Phone: Start: 01-09-2023 Glucose quantitative blood xcpt reagent strip Azam Rose MD Work Phone: Start: 01-08-2023 Glucose quantitative blood xcpt reagent strip Azam Rose MD Work Phone: Start: 01-08-2023 Glucose quantitative blood xcpt reagent strip Azam Rose MD Work Phone: Start: 01-08-2023 Radiologic exam chest single view Shruthi Weaver NET DEVELOPER PROGRAMMER - AROMATHERAPIST Work Phone: Start: 01-07-2023 Glucose quantitative blood xcpt reagent strip Azam Rose MD Work Phone: Start: 01-07-2023 Glucose quantitative blood xcpt reagent strip Azam Rose MD Work Phone: Start: 01-07-2023 Glucose quantitative blood xcpt reagent strip Azam Rose MD Work Phone: Start: 01-07-2023 Radiologic exam chest single view Shruthi Weaver NET DEVELOPER PROGRAMMER - AROMATHERAPIST Work Phone: Start: 01-07-2023 Basic metabolic panel calcium total Shruthi Weaver NET DEVELOPER PROGRAMMER - AROMATHERAPIST Work Phone: Start: 01-06-2023 Glucose quantitative blood xcpt reagent strip Azam Rose MD Work Phone: Start: 01-06-2023 Glucose quantitative blood xcpt reagent strip Azam Rose MD Work Phone: Start: 01-06-2023 Glucose quantitative blood xcpt reagent strip Azam Rose MD Work Phone: Start: 01-06-2023 Radiologic exam chest single view Shruthi Weaver NET DEVELOPER PROGRAMMER - AROMATHERAPIST Work Phone: Start: 01-06-2023 Basic metabolic panel calcium total Shruthi Weaver NET DEVELOPER PROGRAMMER - AROMATHERAPIST Work Phone: Start: 01-05-2023 Glucose quantitative blood xcpt reagent strip Azam Rose MD Work Phone: Start: 01-05-2023 Glucose quantitative blood xcpt reagent strip Azam Rose MD Work Phone: Start: 01-05-2023 Radiologic exam chest single view Shruthi Weaver NET DEVELOPER PROGRAMMER - AROMATHERAPIST Work Phone: Start: 01-05-2023 Compatibility each unit electronic Remington Hopkins MD Work Phone: Start: 01-05-2023 Basic metabolic panel calcium total Shruthi Weaver NET DEVELOPER PROGRAMMER - AROMATHERAPIST Work Phone: Start: 01-04-2023 Glucose quantitative blood xcpt reagent strip Azam Rose MD Work Phone: Start: 01-04-2023 Glucose quantitative blood xcpt reagent strip Azam Rose MD Work Phone: Start: 01-04-2023 Radiologic exam chest single view Shruthi Neumann Patriciasumit NET DEVELOPER PROGRAMMER - AROMATHERAPIST Work Phone: Start: 01-04-2023 End: 01-04-2023 Basic metabolic panel calcium total Shruthi Weaver NET DEVELOPER PROGRAMMER - AROMATHERAPIST Work Phone: Start: 01-03-2023 Glucose quantitative blood xcpt reagent strip Azam Rose MD Work Phone: Start: 01-03-2023 Glucose quantitative blood xcpt reagent strip Azam Rose MD Work Phone: Start: 01-03-2023 Glucose quantitative blood xcpt reagent strip Azam Rose MD Work Phone: Start: 01-03-2023 Radiologic exam chest single view Shruthi Nel Dimitrioske NET DEVELOPER PROGRAMMER - [facility] Work Phone: Start: 01-03-2023 Basic metabolic panel calcium total Shruthi Weaver NET DEVELOPER PROGRAMMER - AROMATHERAPIST Work Phone: Start: 01-02-2023 Glucose quantitative blood xcpt reagent strip Azam Rose MD Work Phone: Start: 01-02-2023 Glucose quantitative blood xcpt reagent strip Azam Rose MD Work Phone: Start: 01-02-2023 End: 01-02-2023 Basic metabolic panel calcium total Chandler BraggYoko Ram NET DEVELOPER PROGRAMMER - AROMATHERAPIST Work Phone: Start: 01-02-2023 Glucose quantitative blood xcpt reagent strip Azam Rose MD Work Phone: Start: 01-02-2023 Glucose quantitative blood xcpt reagent strip Azam Rose MD Work Phone: Start: 01-02-2023 Radiologic exam chest single view Shruthi Nel Weaver NET DEVELOPER PROGRAMMER - [facility] Work Phone: Start: 01-02-2023 Ecg routine ecg w/least 12 lds trcg only w/o i&r Shruthi Nel Weaver NET DEVELOPER PROGRAMMER - [facility] Work Phone: Start: 01-02-2023 End: 01-02-2023 Glucose quantitative blood xcpt reagent strip Azam Rose MD Work Phone: Start: 01-02-2023 End: 01-02-2023 Glucose quantitative blood xcpt reagent strip Azam Rose MD Work Phone: Start: 01-02-2023 Glucose quantitative blood xcpt reagent strip Azam Rose MD Work Phone: Start: 01-02-2023 End: 01-02-2023 Basic metabolic panel calcium total Shruthi Nel Weaver NET DEVELOPER PROGRAMMER - AROMATHERAPIST Work Phone: Start: 01-01-2023 Glucose quantitative blood xcpt reagent strip Azam Rose MD Work Phone: Start: 01-01-2023 End: 01-01-2023 Glucose quantitative blood xcpt reagent strip Azam Rose MD Work Phone: Start: 01-01-2023 End: 01-01-2023 Glucose quantitative blood xcpt reagent strip Azam Rose MD Work Phone: Start: 01-01-2023 End: 01-01-2023 Glucose quantitative blood xcpt reagent strip Azam Rose MD Work Phone: Start: 01-01-2023 Blood count hematocrit Mynor Villareal A PRN - AROMATHERAPIST Work Phone: Start: 01-01-2023 Compatibility each unit electronic Mynor Villareal NET DEVELOPER PROGRAMMER - AROMATHERAPIST Work Phone: Start: 01-01-2023 End: 01-01-2023 TRANSFUSE RED BLOOD CELLS Mynor R Gene t NET DEVELOPER PROGRAMMER - AROMATHERAPIST Work Phone: Start: 01-01-2023 Radiologic exam chest single view Mynor Villareal NET DEVELOPER PROGRAMMER - AROMATHERAPIST Work Phone: Start: 01-01-2023 End: 01-01-2023 Blood count complete automated Mynor Villareal NET DEVELOPER PROGRAMMER - AROMATHERAPIST Work Phone: Start: 01-01-2023 Echo transesophag r-t 2d w/prb img acquisj i&r Azam Rose MD Work Phone: Start: 01-01-2023 Ecg routine ecg w/least 12 lds trcg only w/o i&r Shruthi Nel Weaver NET DEVELOPER PROGRAMMER - AROMATHERAPIST Work Phone: Start: 01-01-2023 End: 01-01-2023 Glucose quantitative blood xcpt reagent strip Azam Rose MD Work Phone: Start: 01-01-2023 Basic metabolic panel calcium total Azamjerica Rose MD Work Phone: Start: 01-01-2023 Blood gases any combination ph [id number] co2 [id number] Azam Rose MD Work Phone: Start: 01-01-2023 End: 01-01-2023 Cabg w/arterial graft three arterial grafts Azam Rose MD Work Phone: Start: 01-01-2023 End: 01-01-2023 Echo transesophag r-t 2d w/prb img acquisj i&r Azam Rose MD Work Phone: Start: 01-01-2023 End: 01-01-2023 Glucose quantitative blood xcpt reagent strip Azam Rose MD Work Phone: Start: 12-18-2022 Plain chest X-ray Dr. Mayda Garcia Work Phone: Start: 12-16-2022 CT of abdomen without contrast Dr. Mayda Garcia Work Phone: Start: 11-19-[address] Mayda chance Work Phone: Start: 10-10-2022 Radiologic examination of knee Dr. Mayda Garcia Work Phone: Start: 10-03-2022 Plain x-ray of pelvis and lower extremity Dr. Mayda Garcia Work Phone: Start: 08-13-2022 CT of head without contrast Dr. Mayda Garcia Work Phone: Start: 06-06-2022 CT of abdomen and pelvis without contrast Dr. Mayda Garcia Work Phone: Start: 06-06-2022 Plain chest X-ray Dr. Mayda Garcia Work Phone: Start: 03-29-2022 Radiologic examination of knee Dr. Mayda Garcia Work Phone: Start: 03-29-2022 Radiography of sacrococcygeal spine Dr. Mayda Garcia Work Phone: Start: 03-14-2022 Plain chest X-ray Dr. Mayda Garcia Work Phone: Start: 03-14-2022 CT of head without contrast Dr. Mayda Garcia Work Phone: Start: 01-03-2022 Radionuclide imaging of perfusion of myocardium under exercise stress Dr. Mayda Garcia Work Phone: Start: 01-02-2022 Plain X-ray of shoulder Dr. Mayda silveira Work Phone: Start: 01-02-2022 X-ray of cervical spine Dr. Mayda silveira Work Phone: Start: 01-02-2022 CT angiography of head and neck Dr. Mayda Garcia Work Phone: Start: 01-02-2022 Plain chest X-ray Dr. Mayda Garcia Work Phone: Start: 12-17-2021 Plain chest X-ray Dr. Mayda Garcia Work Phone: Start: 12-12-2021 End: 12-12-[address] Mayda alcaraz Work Phone: Start: 11-28-2021 Plain x-ray of elbow Dr. Mayda chance Work Phone: Start: 10-25-2021 Plain chest X-ray Dr. Mayda Garcia Work Phone: Start: 03-22-2018 History of placement of stent for coronary artery disease History of coronary artery stent placement Dr. Mayda Garcia Work Phone: History of coronary artery bypass grafting S/P CABG (coronary artery bypass graft) Azam Rose MD Work Phone: History of coronary artery bypass grafting History of coronary artery bypass graft x 3 Dr. Mayda Garcia Work Phone: History of coronary artery bypass grafting S/P CABG (coronary artery bypass graft) Kassy Ken CNP Work Phone: History of coronary artery bypass grafting Dr. Mayda Garcia Work Phone: History of coronary artery bypass grafting Dr. Mayda Garcia MD Work Phone: History of coronary artery bypass grafting Dr. Mayda Garcia MD Work Phone: History of coronary artery bypass grafting Mikhail LÓPEZ SARS-CoV-2 & FLU Ant igen (Rapid) Dr. Mayda Garcia Work Phone: Streptococcus pyogen es antigen assay Dr. Mayda Garcia Work Phone: Urine culture Dr. Mayda Garcia Work Phone: Plan of Treatment Date Care Activity Detail Author Start: 09-22-2024 Cytoplasmic ANCA Screen [facility] Start: 09-21-2024 Patient referral [facility] Work Phone: Start: 09-16-2024 [facility] Start: 07-15-2024 [facility] Start: 07-14-2024 [facility] Start: 07-14-2024 [facility] Start: 05-20-2024 Patient referral [facility] Work Phone: Start: 01-08-2024 Creatinine measurement Creatinine Level [facility] Start: 01-08-2024 Potassium measurement Potassium Level [facility] Start: 01-02-2024 Echocardiography Echocardiogram [facility] Start: 12-30-2023 Hemoglobin A1c measurement Diabetes: Hemoglobin A1C [facility] Start: 07-23-2023 Patient referral [facility] Work Phone: Start: 06-17-2023 Patient referral [facility] Work Phone: Start: 06-01-2023 Patient referral to dietitian [facility] Start: 05-20-2023 Patient referral [facility] Work Phone: Start: 03-19-2023 Patient referral [facility] Work Phone: Start: 02-23-2023 Blood chemistry [facility] Start: 02-16-2023 Blood chemistry [facility] Start: 02-09-2023 Blood chemistry [facility] Start: 02-02-2023 Blood chemistry [facility] Start: 01-28-2023 Development of care plan [facility] Start: 01-26-2023 Patient discharge [facility] Start: 01-22-2023 Referral to service [facility] Start: 01-22-2023 Continuous positive airway pressure ventilation treatment [facility] Start: 01-21-2023 Following clinical pathway protocol [facility] Start: 01-21-2023 [facility] Start: 01-19-2023 End: 01-19-2023 Patient encounter procedure 01/19/2023 11:30 AM EDT Office Visit [facility] [address] [place] [id number] aKssy Tabares, NET DEVELOPER PROGRAMMER - AROMATHERAPIST [address] [place] [address] [facility] Start: 01-14-2023 End: 01-14-2023 Speech therapy management [facility] Start: 01-13-2023 Speech therapy assessment [facility] Start: 01-12-2023 [facility] Start: 01-12-2023 Development of care plan [facility] Start: 01-12-2023 Developing a treatment plan [facility] Start: 01-11-2023 Seizure precautions [facility] Start: 01-11-2023 Provision of activity privileges [facility] Start: 01-11-2023 Recommendation to continue with treatment [facility] Start: 01-11-2023 Wound care [facility] Start: 01-11-2023 Admission procedure [facility] Start: 01-11-2023 Measuring intake and output [facility] Start: 01-11-2023 Patient referral to dietitian [facility] Start: 01-11-2023 Referral to occupational therapist [facility] Start: 01-11-2023 Referral to service [facility] Start: 01-11-2023 Vital signs measurements [facility] Start: 01-11-2023 End: 01-11-2023 [facility] Start: 01-02-2023 Influenza vaccination Influenza Vaccine (#1) [facility] Start: 01-01-2023 End: 01-01-2023 Admission to same day surgery center 01/01/2023 7:30 AM EDT - 01/01/2023 12:30 PM EDT Surgery [facility] [place] [place] [address] [place] [address] Azam Rose MD [address] [place] [address], [address] [place] [address] CABG AND SIS [51381 (CPT )] [facility] Comment on above: CABG AND SIS [01137 (CPT )] Start: 01-01-2023 End: 01-01-2023 Anesthesia consultation 01/01/2023 7:30 AM EDT Anesthesia Event [facility] [place] [address] [place] [address] Adilia Carson PA [address] [place] [address] [facility] Start: 01-01-2023 End: 01-01-2023 Cabg w/arterial graft three arterial grafts CABG X3 ARTERIAL GRAFTS Atherosclerotic heart disease of [place] coronary artery without angina pectoris 01/01/2023 7:30 AM EDT [facility] Operating Room Start: 01-01-2023 End: 01-01-2023 Echo transesophag r-t 2d w/prb img acquisj i&r Echocardiography transesophageal real-time Atherosclerotic heart disease of [place] coronary artery without angina pectoris 01/01/2023 7:30 AM EDT [facility] Operating Room Start: 01-01-2023 Subsequent hospital visit by physician 01/01/2023 7:30 AM EDT Hospital Encounter [facility] [address] [place] [address] Azam Rose MD [address] [place] [address], [address] [place] [address] [facility] Start: 12-26-2022 End: 12-26-2022 Admission to establishment 12/26/2022 1:00 PM EDT Pre-Admission Testing [facility] Pre-Admit Testing [address] [place] [id number] [facility] Pre-[facility]mit Testing Start: 12-24-2022 End: 02-23-2023 Basic metabolic 1998 panel - Serum or Plasma Basic metabolic panel Lab Routine Preoperative clearance Expected: 12/24/2022, Expires: 02/23[facility]23 [facility] Comment on above: Expected: 12/24/2022, Expires: Start: 12-24-2022 End: 02-23-2023 Blood type and Crossmatch panel - Blood Type and Screen Lab Routine Preoperative clearance Expected: 12/24/2022, Expires: 02/23/2023 [facility] Comment on above: Expected: 12/24/2022, Expires: Start: 12-24-2022 End: 02-23-2023 CBC panel - Blood by Automated count CBC Lab Routine Preoperative clearance Expected: 12/24/2022, Expires: 02/23/2023 [facility] Comment on above: Expected: 12/24/2022, Expires: Start: 12-24-2022 End: 02-23-2023 ECG 12 lead ECG 12 lead CV ECG Routine Preoperative clearance Expected: 12/24/2022, Expires: 02/23/2023 [facility] Comment on above: Expected: 12/24/2022, Expires: Start: 12-24-2022 End: 02-23-2023 Hemoglobin A1c/Hemoglobin.total in Blood Hemoglobin A1c Lab Routine Preoperative clearance Expected: 12/24/2022, Expires: 02/23/2023 [facility] Comment on above: Expected: 12/24/2022, Expires: Start: 12-24-2022 End: 02-23-2023 Prepare RBC: 2 Units Prepare RBC: 2 Units Blood Bank Routine Preoperative clearance Expected: 12/24/2022, Expires: 02/23/2023 [facility] Comment on above: Expected: 12/24/2022, Expires: 3 Start: 12-24-2022 End: 02-23-2023 XR Chest 2 Views XR chest 2 views Imaging Routine Preoperative clearance Expected: 12/24/2022, Expires: 02/23/2023 [facility] Comment on above: Expected: 12/24/2022, Expires: 3 Start: 12-19-2022 Patient discharge [facility] Start: 12-19-2022 Patient referral [facility] Work Phone: Start: 12-18-2022 Referral to city jailer [facility] Start: 12-18-2022 Ambulation without limitation [facility] Start: 12-18-2022 Assessment of risk of venous thromboembolism [facility] Start: 12-18-2022 Insertion of catheter into peripheral vein [facility] Start: 12-18-2022 Oxygen therapy [facility] Start: 12-18-2022 Providing care according to standard [facility] Start: 12-18-2022 Admission procedure [facility] Start: 12-18-2022 Following clinical pathway protocol [facility] Start: 12-18-2022 End: 12-18-2022 [facility] Start: 12-12-2022 Screening for malignant neoplasm of breast Mammogram [facility] Start: 06-07-2022 Incentive spirometry [facility] Start: 06-07-2022 [facility] Start: 06-06-2022 Seizure precautions [facility] Start: 03-14-2022 Seizure precautions [facility] Start: 01-10-2022 Patient referral [facility] Work Phone: Start: 01-03-2022 Patient discharge [facility] Work Phone: Start: 01-02-2022 Care regimes management [facility] Work Phone: Start: 01-02-2022 Notification of physician [facility] Work Phone: Start: 01-02-2022 [facility] Work Phone: Start: 01-02-2022 Following clinical pathway protocol [facility] Work Phone: Start: 01-02-2022 Assessment of risk of venous thromboembolism [facility] Work Phone: Start: 01-02-2022 Catheterization of vein [facility] Work Phone: Start: 01-02-2022 Insertion of catheter into peripheral vein [facility] Work Phone: Start: 01-02-2022 Measuring intake and output [facility] Work Phone: Start: 01-02-2022 Providing care according to standard [facility] Work Phone: Start: 01-02-2022 Provision of activity privileges [facility] Work Phone: Start: 01-02-2022 [facility] Work Phone: Start: 01-02-2022 Admission procedure [facility] Work Phone: Start: 11-28-2021 US.doppler Lower extremity vein [facility] Work Phone: Start: 10-25-2021 [facility] Work Phone: Start: 07-19-2021 COVID-19 Vaccine (4 - Booster for Moderna series) COVID-19 Vaccine (4 - Booster for Moderna series) [facility] Start: 07-19-2021 COVID-19 Vaccine (4 - Moderna series) COVID-19 Vaccine (4 - Moderna series) [facility] Start: 01-17-2021 DTaP/Tdap/Td Vaccines (2 - Td or Tdap) DTaP/Tdap/Td Vaccines (2 - Td or Tdap) [facility] Start: 07-18-2011 Hepatitis B Vaccines (3 of 3 - 19+ 3-dose series) Hepatitis B Vaccines (3 of 3 - 19+ 3-dose series) [facility] Start: 07-18-2011 Hepatitis B Vaccines (3 of 3 - Risk 3-dose series) Hepatitis B Vaccines (3 of 3 - Risk 3-dose series) [facility] Start: 05-04-2007 Pneumococcal Vaccine: 65+ Years (2 - PCV) Pneumococcal Vaccine: 65+ Years (2 - PCV) [facility] Start: 2002 Zoster Vaccines (1 of 2) Zoster Vaccines (1 of 2) [facility] Start: 1970 Hepatitis C screening Hepatitis C Screening [facility] Start: 1964 Depression Screening Depression Screening [facility] Start: 1962 Diabetic foot examination Diabetes: Foot Exam [facility] Start: 1962 Glaucoma screening Diabetes: Retinopathy Screening [facility] Start: 1962 Preventive dental service Diabetes: Dental Exam [facility] Start: 1952 Hemoglobin A1c measurement Diabetes: Hemoglobin A1C [facility] Start: 1952 Lipid panel Lipid Panel [facility] Start: 1952 Medicare Advantage Annual Wellness Visit (AWV) Medicare Advantage Annual Wellness Visit (AWV) [facility] Start: 1952 Screening for malignant neoplasm of colon [facility] Start: 1952 Screening for osteoporosis Bone Density Scan [facility] Antibody to lupus La protein measurement [facility] Antibody to SS-A measurement [facility] Basic metabolic 2008 panel with ionized calcium - Serum or Plasma [facility] Blood ammonia measurement [facility] Work Phone: Blood ammonia measurement [facility] Blood chemistry [facility] C reactive protein [Mass/volume] in Serum or Plasma [facility] CBC W Auto Different ial panel - Blood [facility] Complete blood count [facility] Work Phone: CT Abdomen and Pelvi s W contrast IV [facility] Cytoplasmic ANCA Screen [facility] DNA double strand Ab [Units/volume] in Serum [facility] DXA Bone [Mass/Area] Bone density [facility] Erythrocyte sedimentation rate [facility] Folate [Mass/volume] in Serum or Plasma [facility] Hemoglobin A1c/Hemoglobin.total in Blood [facility] Hemoglobin A1c/Hemoglobin.total in Blood [facility] Hepatic function panel [facility] Lipid 1996 panel - S ronnell or Plasma [facility] MG Breast - bilatera l Screening [facility] Work Phone: Patient Education [facility] Work Phone: Patient referral [facility] Work Phone: Radionuclide gastric emptying study [facility] Rheumatoid factor [Presence] in Serum [facility] Streptococcus pyogen es antigen assay Group A Streptococcus Rapid Screen [facility] Work Phone: Thiamine measurement [facility] Thyroid stimulating hormone measurement [facility] Troponin T.cardiac [Mass/volume] in Serum or Plasma by High sensitivity method [facility] Viral nucleic acid assay [facility] Vitamin B12 measurement [facility] End: 12-29-2022 XR Chest 2 Views [facility] Work Phone: Comment on above: Once for 1 Occurrences starting 12/30/19 23 until 12/29/2022 XR Shoulder GE [address] [facility] Work Phone: [facility] Immunizations Immunization Date Immunization Notes [facility]24 RSV Adult BiValent (Abrysvo) Dr. Mayda Garcia MD Work Phone: [facility] 02-04-2023 influenza, injectabl e, quadrivalent, preservative free Dr. Mayda Garcia Work Phone: [facility] 01-14-2023 Pneumococcal Vaccine PCV20 (Prevnar 20) Dr. Mayda Garcia Work Phone: [facility] 03-10-2022 influenza, injectabl e, quadrivalent, preservative free Dr. Mayda Garcia Work Phone: [facility] 03-10-2022 influenza, seasonal, injectable Dr. Mayda Garcia Work Phone: [facility] 03-10-2022 influenza virus vaccine, unspecified formulation Azam Rose MD Work Phone: [facility] 05-24-2021 Covid (Moderna) Dr. Yaron Garcia Work Phone: [facility] 08-09-2020 Covid (Moderna) Dr. Yaron Garcia Work Phone: [facility] 07-11-2020 [facility] Yaron Garcia Work Phone: [facility] 02-10-2020 influenza, injectabl e, quadrivalent, preservative free Dr. Mayda Garcia Work Phone: [facility] 02-10-2020 influenza, seasonal, injectable Dr. Mayda Garcia Work Phone: [facility] 02-10-2020 Seasonal, quadrivale nt, recombinant, injectable influenza vaccine, preservative free Dr. Mayda Garcia Work Phone: [facility] 02-10-[address] Mayda Garcia Work Phone: [facility] 03-21-2018 influenza, injectabl e, quadrivalent, preservative free Dr. Mayda Garcia Work Phone: [facility] 03-21-2018 influenza, seasonal, injectable Dr. Mayda Garcia Work Phone: [facility] 03-21-2018 Seasonal, quadrivale nt, recombinant, injectable influenza vaccine, preservative free Dr. Mayda Garcia Work Phone: [facility] 03-03-2016 influenza, injectabl e, quadrivalent, preservative free Dr. Mayda Garcia Work Phone: [facility] 04-11-2015 influenza, injectabl e, quadrivalent, preservative free Dr. Mayda Garcia Work Phone: [facility] Payers Date Payer Category Payer Self-pay [id number] 2021 Medicare AN[employer]M MEDICARE ADVANTAGE NANDO MELÉNDEZ [id number] 2021-Present [address] [place] [address] Medicare HMO [id number] 2021 Unknown [id number] 2011 Medicare [id number] Medicare [id number] Medicare [id number] Unknown [id number] Unknown [id number] 2.16.840.1.406225.3.579.2.462 Unknown [id number] 2.16840.1.875345.3.579.2.462 Unknown [id number] 2.16840.1.599658.3.579.2.462 Unknown [id number] 2.16840.1.655188.3.579.2.462 Unknown [id number] 2.16.840.1.071546.3.579.2.462 Unknown [id number] 2.16840.1.273129.3.579.2.462 Unknown [id number] 2.16840.1.346879.3.579.2.462 Unknown [id number] 2.16840.1.326857.3.579.2.462 Unknown [id number] 2.16.840.1.662123.3.579.2.462 Unknown [id number] 2.16.840.1.992548.3.579.2.462 Unknown [id number] 2.16.840.1.865449.3.579.2.462 Unknown [id number] 2.16840.1.917996.3.579.2.462 Unknown [id number] 2.840.1.043953.3.579.2.462 Unknown [id number] 2.840.1.598055.3.579.2.462 Unknown [id number] 2.840.1.587518.3.579.2.462 Unknown [id number] 2.840.1.450734.3.579.2.462 Unknown [id number] 2.840.1.865000.3.579.2.462 Unknown [id number] 2.840.1.792100.3.579.2.462 Unknown [id number] 2.840.1.938467.3.579.2.462 Unknown [id number] 2.840.1.860887.3.579.2.462 Unknown [id number] 2.840.1.235453.3.579.2.462 Unknown [id number] .840.1.519413.3.579.2.462 Unknown [id number] .840.1.257090.3.579.2.462 Unknown [id number] .840.1.132247.3.579.2.462 Unknown [id number] 2.840.1.786570.3.579.2.462 Unknown [id number] .840.1.105025.3.579.2.462 Unknown [id number] .840.1.355819.3.579.2.462 Unknown [id number] 2.840.1.368288.3.579.2.462 Unknown [id number] 2.840.1.384683.3.579.2.462 Unknown [id number] 2.840.1.964820.3.579.2.462 Unknown [id number] 2.16.840.1.431323.3.579.2.462 Unknown [id number] 2.16.840.1.625390.3.579.2.462 Unknown [id number] 2.16.840.1.334195.3.579.2.462 Unknown [id number] 2.16.840.1.706704.3.579.2.462 Unknown [id number] 2.16.840.1.949092.3.579.2.462 Unknown [id number] 2.16.840.1.641656.3.579.2.462 Unknown [id number] 2.16.840.1.028088.3.579.2.462 Unknown [id number] 2.16.840.1.583708.3.579.2.462 Unknown [id number] 2.16.840.1.420074.3.579.2.462 Unknown [id number] 2.16.840.1.591655.3.579.2.462 Unknown [id number] 2.16.840.1.541459.3.579.2.462 Unknown [id number] 2.16.840.1.025632.3.579.2.462 Unknown [id number] 2.16.840.1.577345.3.579.2.462 Unknown [id number] 2.16840.1.077880.3.579.2.462 Unknown [id number] 2.16840.1.249427.3.579.2.462 Unknown [id number] 2.16840.1.722059.3.579.2.462 Social History Date Type Detail Facility Start: 10-25-2021 End: 08-19-2023 Tobacco smoking status VAIS Unknown if ever smoked [facility] Start: 09-26-2020 Rare [facility] Start: 09-26-2020 None [facility] Start: 09-26-2020 Alone [facility] Start: 09-26-2020 Non-smoker [facility] Start: 1950 Sex Assigned At Female [facility] Start: 12-22-2022 End: 09-16-2024 Tobacco smoking status NHIS Never smoked tobacco [facility] Start: 12-22-2022 Tobacco use and exposure Smokeless tobacco non-user [facility] Start: 12-23-2022 Alcohol intake Lifetime non-d domenica (finding) [facility] Start: 12-22-2022 End: 01-19-2023 History of Social function [facility] Start: 12-22-2022 End: 01-19-2023 Tobacco use panel [facility] Start: 1950 Sex Assigned At Not on file [facility] Start: 12-13-2022 End: 01-19-2023 Exposure to SARS-CoV-2 (event) Not sure [facility] Start: 12-29-2022 End: 01-19-2023 Alcohol intake Current drinker of alcohol (finding) [facility] Start: 12-29-2022 Alcohol Comment once a year [facility] Within the last year , have you been afraid of your partner or ex-partner? No [facility] Start: 07-14-2024 End: 07-15-2024 Sex Female (finding) [facility] Medical Equipment Procedure Code Equipment Code Equipment Origin al Text Equipment Identifier Dates Blood Sugar Diagnostic (True Metrix Glucose Test Strip) strip Start: 07-17-2021 Blood Sugar Diagnostic (True Metrix Glucose Test Strip) strip Start: 02-07-2020 End: 02-07-2020 Blood Sugar Diagnostic (True Metrix Glucose Test Strip) strip Start: 02-07-2020 End: 07-17-2021 [facility] lancets Start: 11-11-2019 End: 11-11-2019 Blood Sugar Diagnostic (True Metrix Glucose Test Strip) strip Start: 07-17-2021 Blood Sugar Diagnostic (True Metrix Glucose Test Strip) strip Start: 02-07-2020 End: 02-07-2020 Blood Sugar Diagnostic (True Metrix Glucose Test Strip) strip Start: 02-07-2020 End: 07-17-2021 [employer]ile[employer] super thi n lancets Start: 11-11-2019 End: 11-11-2019 Blood Sugar Diagnostic (True Metrix Glucose Test Strip) strip Start: 07-17-2021 Blood Sugar Diagnostic (True Metrix Glucose Test Strip) strip Start: 02-07-2020 End: 02-07-2020 Blood Sugar Diagnostic (True Metrix Glucose Test Strip) strip Start: 02-07-2020 End: 07-17-2021 [facility] n lancets Start: 11-11-2019 End: 11-11-2019 Blood Sugar Diagnostic (True Metrix Glucose Test Strip) strip Start: 07-17-2021 Blood Sugar Diagnostic (True Metrix Glucose Test Strip) strip Start: 02-07-2020 End: 02-07-2020 Blood Sugar Diagnostic (True Metrix Glucose Test Strip) strip Start: 02-07-2020 End: 07-17-2021 [facility] n lancets Start: 11-11-2019 End: 11-11-2019 Blood Sugar Diagnostic (True Metrix Glucose Test Strip) strip Start: 07-17-2021 Blood Sugar Diagnostic (True Metrix Glucose Test Strip) strip Start: 02-07-2020 End: 02-07-2020 Blood Sugar Diagnostic (True Metrix Glucose Test Strip) strip Start: 02-07-2020 End: 07-17-2021 [facility] n lancets Start: 11-11-2019 End: 11-11-2019 Blood Sugar Diagnostic (True Metrix Glucose Test Strip) strip Start: 07-17-2021 Blood Sugar Diagnostic (True Metrix Glucose Test Strip) strip Start: 02-07-2020 End: 02-07-2020 Blood Sugar Diagnostic (True Metrix Glucose Test Strip) strip Start: 02-07-2020 End: 07-17-2021 [facility] n lancets Start: 11-11-2019 End: 11-11-2019 Blood Sugar Diagnostic (True Metrix Glucose Test Strip) strip Start: 07-17-2021 Blood Sugar Diagnostic (True Metrix Glucose Test Strip) strip Start: 02-07-2020 End: 02-07-2020 Blood Sugar Diagnostic (True Metrix Glucose Test Strip) strip Start: 02-07-2020 End: 07-17-2021 [facility] n lancets Start: 11-11-2019 End: 11-11-2019 Blood Sugar Diagnostic (True Metrix Glucose Test Strip) strip Start: 07-17-2021 Blood Sugar Diagnostic (True Metrix Glucose Test Strip) strip Start: 02-07-2020 End: 02-07-2020 Blood Sugar Diagnostic (True Metrix Glucose Test Strip) strip Start: 02-07-2020 End: [facility]-17-[facility] Start: 11-11-2019 End: 11-11-2019 Blood Sugar Diagnostic (True Metrix Glucose Test Strip) strip Start: 07-17-2021 Blood Sugar Diagnostic (True Metrix Glucose Test Strip) strip Start: 02-07-2020 End: 02-07-2020 Blood Sugar Diagnostic (True Metrix Glucose Test Strip) strip Start: 02-07-2020 End: 07-17-2021 [facility] Start: 11-11-2019 End: 11-11-2019 Blood Sugar Diagnostic (True Metrix Glucose Test Strip) strip Start: 07-17-2021 Lancets (Bd Ultr a Fine Lancets) 33 gauge misc Start: 04-02-2022 Blood Sugar Diagnostic (True Metrix Glucose Test Strip) strip Start: 02-07-2020 End: 02-07-2020 Blood Sugar Diagnostic (True Metrix Glucose Test Strip) strip Start: 02-07-2020 End: 07-17-2021 [facility] Start: 11-11-2019 End: 11-11-2019 Blood Sugar Diagnostic (True Metrix Glucose Test Strip) strip Start: 07-17-2021 Lancets (Bd Ultr a Fine Lancets) 33 gauge misc Start: 04-02-2022 Blood Sugar Diagnostic (True Metrix Glucose Test Strip) strip Start: 02-07-2020 End: 02-07-2020 Blood Sugar Diagnostic (True Metrix Glucose Test Strip) strip Start: 02-07-2020 End: 07-17-2021 [facility] Start: 11-11-2019 End: 11-11-2019 Blood Sugar Diagnostic (True Metrix Glucose Test Strip) strip Start: 07-17-2021 Lancets (Bd Ultr a Fine Lancets) 33 gauge misc Start: 04-02-2022 Blood Sugar Diagnostic (True Metrix Glucose Test Strip) strip Start: 02-07-2020 End: 02-07-2020 Blood Sugar Diagnostic (True Metrix Glucose Test Strip) strip Start: 02-07-2020 End: 07-17-2021 [facility] lancets Start: 11-11-2019 End: 11-11-2019 Blood Sugar Diagnostic (True Metrix Glucose Test Strip) strip Start: 07-17-2021 Lancets (Bd Ultr a Fine Lancets) 33 gauge misc Start: 04-02-2022 Blood Sugar Diagnostic (True Metrix Glucose Test Strip) strip Start: 02-07-2020 End: 02-07-2020 Blood Sugar Diagnostic (True Metrix Glucose Test Strip) strip Start: 02-07-2020 End: 07-17-2021 [facility]anc[facility] Start: 11-11-2019 End: 11-11-2019 Blood Sugar Diagnostic (True Metrix Glucose Test Strip) strip Start: 07-17-2021 Lancets (Bd Ultr a Fine Lancets) 33 gauge misc Start: 04-02-2022 Blood Sugar Diagnostic (True Metrix Glucose Test Strip) strip Start: 02-07-2020 End: 02-07-2020 Blood Sugar Diagnostic (True Metrix Glucose Test Strip) strip Start: 02-07-2020 End: 07-17-2021 [facility] lancets Start: 11-11-2019 End: 11-11-2019 Blood Sugar Diagnostic (True Metrix Glucose Test Strip) strip Start: 07-17-2021 Lancets (Bd Ultr a Fine Lancets) 33 gauge misc Start: 04-02-2022 Blood Sugar Diagnostic (True Metrix Glucose Test Strip) strip Start: 02-07-2020 End: 02-07-2020 Blood Sugar Diagnostic (True Metrix Glucose Test Strip) strip Start: 02-07-2020 End: 07-17-2021 [facility] lancets Start: 11-11-2019 End: 11-11-2019 Blood Sugar Diagnostic (True Metrix Glucose Test Strip) strip Start: 07-17-2021 Lancets (Bd Ultr a Fine Lancets) 33 gauge misc Start: 04-02-2022 Blood Sugar Diagnostic (True Metrix Glucose Test Strip) strip Start: 02-07-2020 End: 02-07-2020 Blood Sugar Diagnostic (True Metrix Glucose Test Strip) strip Start: 02-07-2020 End: 07-17-2021 [facility] n lancets Start: 11-11-2019 End: 11-11-2019 Blood Sugar Diagnostic (True Metrix Glucose Test Strip) strip Start: 07-17-2021 Lancets (Bd Ultr a Fine Lancets) 33 gauge misc Start: 04-02-2022 Blood Sugar Diagnostic (True Metrix Glucose Test Strip) strip Start: 02-07-2020 End: 02-07-2020 Blood Sugar Diagnostic (True Metrix Glucose Test Strip) strip Start: 02-07-2020 End: 07-17-2021 [facility] n lancets Start: 11-11-2019 End: 11-11-2019 Blood Sugar Diagnostic (True Metrix Glucose Test Strip) strip Start: 07-17-2021 Lancets (Bd Ultr a Fine Lancets) 33 gauge misc Start: 04-02-2022 Blood Sugar Diagnostic (True Metrix Glucose Test Strip) strip Start: 02-07-2020 End: 02-07-2020 Blood Sugar Diagnostic (True Metrix Glucose Test Strip) strip Start: 02-07-2020 End: [facility] Start: 11-11-2019 End: 11-11-2019 Blood Sugar Diagnostic (True Metrix Glucose Test Strip) strip Start: 07-17-2021 Lancets (Bd Ultr a Fine Lancets) 33 gauge misc Start: 04-02-2022 Blood Sugar Diagnostic (True Metrix Glucose Test Strip) strip Start: 02-07-2020 End: 02-07-2020 Blood Sugar Diagnostic (True Metrix Glucose Test Strip) strip Start: 02-07-2020 End: 07-17-2021 [facility] n lancets Start: 11-11-2019 End: 11-11-2019 Blood Sugar Diagnostic (True Metrix Glucose Test Strip) strip Start: 07-17-2021 Lancets (Bd Ultr a Fine Lancets) 33 gauge misc Start: 04-02-2022 Blood Sugar Diagnostic (True Metrix Glucose Test Strip) strip Start: 02-07-2020 End: 02-07-2020 Blood Sugar Diagnostic (True Metrix Glucose Test Strip) strip Start: 02-07-2020 End: 07-17-20[facility] Start: 11-11-2019 End: 11-11-2019 Blood Sugar Diagnostic (True Metrix Glucose Test Strip) strip Start: 06-17-2023 Lancets Start: 06-17-2023 Blood Sugar Diagnostic (True Metrix Glucose Test Strip) strip Start: 02-07-2020 End: 02-07-2020 Blood Sugar Diagnostic (True Metrix Glucose Test Strip) strip Start: 02-07-2020 End: 07-17-2021 Blood Sugar Diagnostic (True Metrix Glucose Test Strip) strip Start: 07-17-2021 End: 06-17-2023 [facility] n lancets Start: 11-11-2019 End: 11-11-2019 Lancets (Bd Ultr a Fine Lancets) 33 gauge misc Start: 04-02-2022 End: 06-17-2023 Blood Sugar Diagnostic (True Metrix Glucose Test Strip) strip Start: 06-17-2023 Lancets Start: 06-17-2023 Blood Sugar Diagnostic (True Metrix Glucose Test Strip) strip Start: 02-07-2020 End: 02-07-2020 Blood Sugar Diagnostic (True Metrix Glucose Test Strip) strip Start: 02-07-2020 End: 07-17-2021 Blood Sugar Diagnostic (True Metrix Glucose Test Strip) strip Start: 07-17-2021 End: 06-17-2023 [facility] n lancets Start: 11-11-2019 End: 11-11-2019 Lancets (Bd Ultr a Fine Lancets) 33 gauge misc Start: 04-02-2022 End: 06-17-2023 Blood Sugar Diagnostic (True Metrix Glucose Test Strip) strip Start: 06-17-2023 Lancets Start: 06-17-2023 Blood Sugar Diagnostic (True Metrix Glucose Test Strip) strip Start: 02-07-2020 End: 02-07-2020 Blood Sugar Diagnostic (True Metrix Glucose Test Strip) strip Start: 02-07-2020 End: 07-17-2021 Blood Sugar Diagnostic (True Metrix Glucose Test Strip) strip Start: 07-17-2021 End: 06-17-2023 [facility] Start: 11-11-2019 End: 11-11-2019 Lancets (Bd Ultr a Fine Lancets) 33 gauge misc Start: 04-02-2022 End: 06-17-2023 Blood Sugar Diagnostic (True Metrix Glucose Test Strip) strip Start: 06-17-2023 Lancets Start: 06-17-2023 Blood Sugar Diagnostic (True Metrix Glucose Test Strip) strip Start: 02-07-2020 End: 02-07-2020 Blood Sugar Diagnostic (True Metrix Glucose Test Strip) strip Start: 02-07-2020 End: 07-17-2021 Blood Sugar Diagnostic (True Metrix Glucose Test Strip) strip Start: 07-17-2021 End: 06-17-2023 [facility]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 multivitamin Tablet 1 tab PO DAILY calcium citrate 200 mg (950 mg) tablet 200 mg PO DAILY aspirin [Adult Low Dose Aspirin] 81 mg tablet,delayed release (DR/EC) 81 mg PO DAILY divalproex [Depakote] 500 mg tablet,delayed release (DR/EC) 1,000 mg PO .COMPLEX Rx Instructions: Take 1,000mg by mouth 2 times daily . 1,000mg in am and 1,200mg in evening. divalproex 250 mg tablet,delayed release (DR/EC) 250 mg PO DAILY Qty: 90 1RF Rx Instructions: Take with 1000 mg Divalproex for a total evening dose of 1250 mg daily. pantoprazole 40 mg tablet,delayed release (DR/EC) 40 mg PO DAILY Qty: 90 0RF Rx Instructions: Take 30 minutes before breakfast duloxetine [Cymbalta] 30 mg capsule,delayed release(DR/EC) 30 mg PO DAILY acetaminophen 500 mg tablet 1,000 mg PO TID atorvastatin 80 mg tablet 80 mg PO QHS Qty: 90 3RF clopidogrel 75 mg tablet See Rx Instructions .ROUTE .COMPLEX Qty: 90 3RF Dose Instruction: TAKE 1 TABLET BY MOUTH EVERY DAY Rx Instructions: TAKE 1 TABLET BY MOUTH EVERY DAY hydroxychloroquine 200 mg tablet See Rx Instructions .ROUTE .COMPLEX Qty: 90 3RF Dose Instruction: TAKE 1 TABLET BY MOUTH TWICE DAILY WITH MEALS Rx Instructions: TAKE 1 TABLET BY MOUTH TWICE DAILY WITH MEALS Prolia 60 mg/mL syringe 60 mg subcut [id number] Qty: 1 2RF Januvia 100 mg tablet See Rx Instructions .ROUTE .COMPLEX Qty: 90 1RF Dose Instruction: TAKE 1 TABLET BY MOUTH DAILY Rx Instructions: TAKE 1 TABLET BY MOUTH DAILY Discontinued isosorbide mononitrate 60 mg Tablet Extended Release 24 Hr 60 mg PO DAILY 30 Days Qty: 30 0RF ipratropium-albuterol 0.5 mg-3 mg(2.5 mg base)/3 mL solution for nebulization 3 ml inhalation TID PRN (Reason: wheezing or SOB) metoprolol tartrate 50 mg tablet 50 mg PO BID oxycodone 5 mg tablet 5 mg PO Q6H PRN (Reason: pain) Rx Instructions: for moderate pain 4-6 polyethylene glycol 3350 [Miralax] 17 gram powder in packet 17 g PO DAILY losartan 50 mg tablet See Rx Instructions .ROUTE .COMPLEX Qty: 180 3RF Dose Instruction: TAKE 1 TABLET BY MOUTH TWICE DAILY Rx Instructions: TAKE 1 TABLET BY MOUTH TWICE DAILY carvedilol 12.5 mg tablet See Rx Instructions .ROUTE .COMPLEX Qty: 180 1RF Dose Instruction: TAKE 1 TABLET BY MOUTH TWICE DAILY Rx Instructions: TAKE 1 TABLET BY MOUTH TWICE DAILY No Action (DME) lancets [BD Ultra Fine Lancets] 33 gauge misc See Rx Instructions .Route Rx Instructions: As directed (DME) blood-glucose meter [True Metrix Air Glucose Meter] Kit See Rx Instructions .ROUTE .MEDSUPPLY Qty: 1 0RF Rx Instructions: As directed (DME) disability placard See Rx Instructions .ROUTE .MEDSUPPLY Qty: 1 0RF Rx Instructions: As directed, Length of time: 5 years (DME) True Metrix Glucose Test Strip Strip See Rx Instructions .ROUTE .MEDSUPPLY Qty: 100 3RF Rx Instructions: check twice a day and as needed Referrals / Follow Up: Mayda Garcia MD [Primary Care Provider] - (patient will make own appt) Disposition Disposition (needs filled in before D/C Order can be placed): Home Health Service 01/22/231924 <Electronically signed by Robbin Carlos MD> Cosigner Signature (if applicable): CC: Dr. Mayda Garcia MD; Dr. Robbin Carlos MD~ Signed [facility] Work Phone: [phone]) 801-714809-14-2023 Progress note Author Robbin [facility] January 15, 2023 5:30pm Note Date/Time January 15, 2023 2:00pm [facility] Medical Records Department [address] [place] [address] Progress Note - Pharmacy 01/15/23 1357 MR#: [id number] Acct: [id number] Name: LACY ALVARADO Rep #:[id number] 5 : 1950 72 From: Bridger Hamilton PCP: Dr. Mayda Garcia MD Status:A DM IN Location: [place] [address] Documented by User: Bridger Hamilton 01/15/23 15:57 TCU RX Drug Regimen Review Subjective/Objective Subjective/Objective: Subjective: 72 year old female with below past medical history hospitalized for CABG x 3 01/01/2023, admitted to TCU with debility, here for rehabilitation, strengthening, prior to discharge home alone. Objective: Allergies prednisone Adverse Reaction (Severe, Verified 12/18/22 05:23) Hives Current Medications Generic Name Dose Route Start Last Admin Trade Name Freq PRN Reason Stop Dose Admin Acetaminophen 1,000 mg 01/11/23 22:00 01/15/23 13:25 Acetaminophen 500 Mg Tablet PO Not Given TID KIT Albuterol/Ipratropium 3 ml 01/11/23 16:26 Ipratropium/Albuterol Sulfate 3 Ml Ampul.Neb INHALATION TID PRN wheezing or SOB Aspirin 81 mg 01/12/23 10:00 01/15/23 09:34 Aspirin E.C. 81 Mg Tablet PO 81 mg DAILY KIT Administration Atorvastatin Calcium 80 mg 01/11/23 22:00 01/14/23 21:36 Atorvastatin Calcium 80 Mg Tablet PO 80 mg QHS KIT Administration Calcium Carbonate 500 mg 01/12/23 10:00 01/15/23 09:35 Calcium Carbonate 500 Mg Tablet PO 500 mg DAILY [facility] Administration Clopidogrel Bisulfate 75 mg 01/12/23 10:00 01/15/23 09:35 Clopidogrel Bisulfate 75 Mg Tablet PO 75 mg DAILY KIT Administration Divalproex Sodium 1,000 mg 01/11/23 22:00 01/15/23 09:34 Divalproex (Er) 500 Mg Tablet PO 1,000 mg BID [facility] Administration Divalproex Sodium 250 mg 01/11/23 22:00 01/14/23 21:38 Divalproex Sodium 250 Mg Tablet PO 250 mg QHS [facility] Administration Duloxetine HCl 30 mg 01/12/23 10:00 01/15/23 09:34 Duloxetine Hcl 30 Mg Capsule PO 30 mg DAILY [facility] Administration Hydroxychloroquine Sulfate 200 mg 01/11/23 17:00 01/15/23 09:34 [facility]oquine 200 Mg [facility] Administration Linagliptin 5 mg 01/12/23 10:00 01/15/23 09:36 Linagliptin 5 Mg Tablet PO 5 mg DAILY [facility] Administration Metoprolol Tartrate 25 mg 01/14/23 22:00 01/15/23 09:39 Metoprolol Tartrate 25 Mg Tablet PO Not Given BID [facility] Multivitamins 1 tablet 01/12/23 08:00 01/15/23 09:34 Multivitamins,Therapeutic Tablet PO 1 tablet [facility] Administration Nutritional Formula (Lactose Free) 120 ml 01/12/23 17:00 01/15/23 13:16 Glucerna Shake 120 Ml Liquid PO Not Given 4X/DAY [facility] Oxycodone HCl 5 mg 01/11/23 16:26 01/14/23 21:43 Oxycodone 5 Mg Tablet PO 5 mg Q6H PRN Administration Pain Score 1-10 Pantoprazole Sodium 40 mg 01/12/23 08:00 01/15/23 09:34 Pantoprazole Sodium 40 Mg Tablet PO 40 mg DAILY@0800 [facility] Administration Polyethylene Glycol 17 gm 01/12/23 10:00 01/15/23 09:35 Polyethylene Glycol 3350 17 Gm Packet PO 17 gm DAILY [facility] Administration Senna/Docusate Sodium 1 tablet 01/15/23 07:57 Senna/Docusate Sodium 1 Tablet PO BID PRN Constipation Tuberculin PPD 0.1 ml 01/19/23 10:00 Tuberculin,Purif.Prot.Deriv. 50 Tu/Ml Vial ID 01/19/23 10:01 X1 ONE Problem List (Updated 01/11/23 @ 20:[address] Robbin Carlos MD) Stroke (Acute) Rheumatoid arthritis (Acute) Diabetes (Acute) Hypertension (Chronic) Coronary artery disease (Acute) Debility (Acute) History of coronary artery bypass graft x 3 (Acute) Hyperlipidemia (Chronic) Osteoporosis (Acute) GERD (gastroesophageal reflux disease) (Acute) Vital Signs Temp Pulse Resp BP Pulse Ox O2 Del Method O2 Flow Rate 97.7 F L 78 18 86/46 L 93 Room Air 2 01/14/23 15:31 01/15/23 09:39 01/14/23 15:31 01/15/23 09:39 01/14/23 15:31 01/14/23 22:00 01/11/23 16:52 Oxygen Flow Rate (L/min) 2 Oxygen Delivery Method Room Air Weight: 77.383 kg Body Mass Index (BMI) 31.4 Sodium 138 mmol/L (136-145) 01/12/23 05:21 Potassium 4.0 mmol/L (3.5-5.1) 01/12/23 05:21 Chloride 106 mmol/L (98-107) 01/12/23 05:21 Carbon Dioxide 27.0 mmol/L (21.0-32.0) 01/12/23 05:21 Anion Gap 5 (5-15) 01/12/23 05:21 BUN 20 mg/dL (7-18) H 01/12/23 05:21 Creatinine 0.94 mg/dL (0.55-1.02) 01/12/23 05:21 Est GFR (MDRD) Af Amer 76 mL/min (>60) 01/12/23 05:21 Est GFR (MDRD) Non-Af 63 mL/min (>60) 01/12/23 05:21 BUN/Creatinine Ratio 21.4 RATIO (10-20) H 01/12/23 05:21 Glucose 85 mg/dL (74-106) 01/12/23 05:21 Assessment/Plan: 1. Pain: acetaminophen 1000 mg PO TID, oxycodone 5 mg PO Q6H PRN pain. Patient has used 3 PRN doses of oxycodone since 01/11. Please continue to monitor for respiratory depression, syncope/ataxia (oxycodone Beer's criteria), pain levels,PRN pain med usage, and LFTs (AST/ALT = 28/32 on 08/13/22). 2. Bowel: polyethylene glycol 17 grams daily, senna/docusate 1 tablet PO BID PRNconstipation. Patient has not received any doses of PRN senna/docusate as of yet(ordered 01/15/23). Patient does not have a documented bowel movement within the last 4 days (since admission). Please continue to monitor for diarrhea and constipation. 3. CAD s/p CABG x 3/hyperlipidemia: enteric coated aspirin 81 mg PO daily, atorvastatin 80 mg PO QHS, clopidogrel 71 mg PO daily, metoprolol tartrate 25 mgPO BID. Please continue to monitor for chest pain, muscle pain, GI distress or s/s of GI ulcer (aspirin Beer's criteria), s/s of bleeding, hemoglobin (Hgb = 10.1 on 01/12/23), platelet count (platelet count = 261 on 01/12/23), heart rate (recent range 62- 89), blood pressure (recent range 86-125/46-69), LFTS (AST/ALT = 28/32 on 08/13/22), and lipids (LDL 124 on 01/10/22, cholesterol 195 on 01/10/22). Please consider ordering lipid panel as it has been greater than 1 year since most recent lipid level. 4. Rheumatoid arthritis: hydroxychloroquine 200 mg PO BIDCM. Please continue to monitor for eye function, and for s/s of skin reactions (TEN/DRESS/AGEP). 5. Shortness of breath: iptratropium/albuterol 3 mL inhalataion TID PRN shortness of breath. Patient has not required any PRN doses to date. Please continue to monitor for shortness of breath, PRN usage, HR (recent range 62-89),and for anticholinergic side effects such as dry mouth and constipation. 6. Diabetes Mellitus II: linagliptin 5 mg PO daily. Please continue to monitor BG (recently 79-121), Hgb A1C (Hgb A1c = 7.0 on 10/01/22),s/s of pancreatitis including abdominal pain and nausea, joint pain, and s/s of heart failure. 7. Nutrition: multivitamin 1 tablet PO daily, glucerna shake 120 mL PO 4 times daily. Please continue to monitor nutritional status. 8. GERD: pantoprazole 40 mg PO daily, calcium carbonate 500 mg PO daily. Please continue to monitor for s/s of GERD, diarrhea that could indicate clostridium difficile infection (pantoprazole Beer's criteria), and s/s of bone resorption such as fracture (pantoprazole Beer's criteria). Assessment/Plan for indications treated with psychotropic medications: 1. Seizures disorder: divalproex ER 1000 mg PO BID, divalproex 250 mg PO QHS (inaddition to 1000 mg for a total evening dose of 1250 mg). Please continue to monitor for seizure activity, ammonia level if clinically indicated (ammonia = <10.0 on 07/23/20), syncope/ataxia/falls (divalproex Beer's criteria), LFTs (AST/ALT = 28/32 on 08/13/22), for s/s of bone marrow suppression (blood counts from 01/12 include: Hgb = 10.1, RBC = 3.19, PLT 261, WBC = 6.6). Seizure disorder, GDR not recommended. 2. Depression: duloxetine 30 mg PO daily. See physician note regarding stable long-term dose, GDR not recommended. Please continue to monitor for SI, ataxia/syncope/falls (duloxetine Beer's criteria), renal function (Beer's criteria; on 01/12/23 SCR = 0.94, creatinine clearance = 44), sodium level (Beer's criteria; sodium = 138 on 01/15/23), GI upset, and blood pressure (recentrange 86-125/46-69). Medical chart and medication regimen reviewed. The following medication irregularities or issues were identified: 1. CAD s/p CABG x 3/hyperlipidemia: enteric coated aspirin 81 mg PO daily, atorvastatin 80 mg PO QHS, clopidogrel 71 mg PO daily, metoprolol tartrate 25 mgPO BID. Please continue to monitor for chest pain, muscle pain, GI distress or s/s of GI ulcer (aspirin Beer's criteria), s/s of bleeding, hemoglobin (Hgb = 10.1 on 01/12/23), platelet count (platelet count = 261 on 01/12/23), heart rate (recent range 62- 89), blood pressure (recent range 86-125/46-69), LFTS (AST/ALT = 28/32 on 08/13/22), and lipids (LDL 124 on 01/10/22, cholesterol 195 on 01/10/22). Please consider ordering lipid panel as it has been greater than 1 year since most recent lipid level. Date Date of Note:: 01/15/23 Documented by User: Dr. Robbin Carlos MD 01/15/23 17:30 [facility] RX Drug Regimen Review Provider Comments Provider responsibility Provider Comments to Recommendations by Pharmacy: Agree 01/15/23 3337 <Electronically signed by Bridger Hamilton> Bridger Hamilton Cosigner Signature (if applicable): 01/15/23 1730 <Electronically signed by Robbin Carlos MD> CC: ~ Signed [facility] Work Phone: [phone]) 732-424309-11-2023 History and physical note Author Robbin Terrance [facility] January 12, 2023 7:47am Note Date/Time January 11, 2023 8:22pm [facility] Medical Records Department [address] [place] [id number] History & Physical Exam 01/11/232019 MR#: [id number] Acct: [id number] Name: LACY ALVARADO Rep #:[id number] : 1950 72 From: Robbin Carlos MD PCP: Dr. Mayda Garcia MD Status:A DM IN Location: [facility] TCU10-1 HPI - General General Date of Admission: 01/11/23 Date of Service: 01/12/23 Chief Complaint: Here for rehabilitation. HPI Narrative LACY ALVARADO, is a 72 Female who presents 12/18/2022 [facility] cheat pain, serial troponins negative. 12/19/2022 Echo Normal LV systolic function. EF 65%. Mild tricuspid insufficiency. 12/19/2022 Heart cath showed multiple blockages. 12/19/2022 Transfer to [facility] to consider surgical revascularization. 01/01/2023 Dr. Rose performed CABG x 3. 01/08/2023 Inpatient rehabilitation denied. Consider SNF. Postoperative course uncomplicated. 01/11/2023 Admit to TCU with debility, here for rehabilitation, strengthning, prior to discharge home alone. [facility] Medical History (Updated 01/11/23 @ 20:[address] Robbin Carlos MD) Abdominal pain Acute back pain Anemia Arthritis Atherosclerotic heart disease of [place] coronary artery without angina pectoris Cardiology follow-up encounter Cervical radiculopathy Chronic diastolic CHF (congestive heart failure) Colon cancer screening Compression fracture of lumbar spine, non-traumatic Congestive heart failure (CHF) Conversion disorder Cough CPAP (continuous positive airway pressure) dependence Diabetes Diabetes mellitus type 2 in nonobese Diabetes type 2, controlled Dysuria Dysuria Essential (primary) hypertension Foreign body in stomach GERD (gastroesophageal reflux disease) Health care maintenance History of coronary artery disease History of hypertension Hives Hyperglycemia due to type 2 diabetes mellitus Hyperlipidemia Left ankle pain Left shoulder pain Memory changes Non-smoker Non-toxic goiter Obesity Obstructive sleep apnea Osteoarthritis Osteoporosis Personal history of colonic polyps Rheumatoid arthritis RIGHT FOOT HEEL SPUR Right groin pain Right hip pain Right shoulder pain Routine health maintenance Seasonal allergies Seizure disorder Shortness of breath on exertion Sleep apnea Therapeutic drug monitoring Type 2 diabetes mellitus Urinary frequency Urinary frequency Wears glasses Home Medications multivitamin 1 tab PO DAILY vitamin 05/20/19 [History Last Taken 12/16/22] blood-glucose meter (True Metrix Air Glucose Meter kit) #1 ea 02/03/20 [Rx Last Taken Unknown] calcium citrate 200 mg (950 mg) tablet 200 mg PO DAILY supplement 05/21/20 [History Last Taken 12/16/22] disability placard #1 ea 06/27/20 [Rx Last Taken Unknown] aspirin 81 mg tablet,delayed release (Adult Low Dose Aspirin) 81 mg PO DAILY heart 08/13/20 [History Last Taken 12/11/22] blood sugar diagnostic (True Metrix Glucose Test Strip) #100 ea 07/17/21 [Rx Last Taken Unknown] lancets 33 gauge (BD Ultra Fine Lancets) 04/02/22 [History Last Taken Unknown] atorvastatin 80 mg tablet 80 mg PO QHS cholesterol #90 tabs 06/11/22 [Rx Last Taken 12/16/22] clopidogrel 75 mg tablet See Rx Instructions .Route .COMPLEX heart #90 TABLETS 08/20/22 [Rx Last Taken 12/16/22] losartan 50 mg tablet See Rx Instructions .Route .COMPLEX #180 TABLETS 08/20/22 [Rx Last Taken 12/16/22] hydroxychloroquine 200 mg tablet See Rx Instructions .Route .COMPLEX immunosuppressant #90 tabs 08/25/22 [Rx Last Taken 12/16/22] divalproex 250 mg tablet,delayed release 250 mg PO DAILY seizure #90 tabs 10/02/22 [Rx Last Taken 12/16/22] divalproex 500 mg tablet,delayed release (Depakote) 1,000 mg PO .COMPLEX seizures 10/03/22 [History Last Taken 12/16/22] denosumab 60 mg/mL subcutaneous syringe (Prolia) 60 mg subcut [id number] #1 mL 12/11/22 [Rx Last Taken Unknown] pantoprazole 40 mg tablet,delayed release 40 mg PO DAILY stomach #90 tabs 12/11/22 [Rx Last Taken 12/16/22] isosorbide mononitrate 60 mg tablet,extended release 24 hr 60 mg PO DAILY 30 days #30 tabs 12/19/22 [Rx Last Taken Unknown] carvedilol 12.5 mg tablet See Rx Instructions .Route .COMPLEX #180 tabs 12/22/22[Rx Last Taken Unknown] sitagliptin phosphate 100 mg tablet (Januvia) See Rx Instructions .Route .COMPLEX diabetes #90 tabs 12/22/22 [Rx Last Taken Unknown] acetaminophen 500 mg tablet 1,000 mg PO TID pain 01/11/23 [History Last Taken Unknown] duloxetine 30 mg capsule,delayed release (Cymbalta) 30 mg PO DAILY mood 01/11/23[History Last Taken Unknown] ipratropium 0.5 mg-albuterol 3 mg (2.5 mg base)/3 mL nebulization soln 3 ml inhalation TID PRN wheezing or SOB 01/11/23 [History Last Taken Unknown] metoprolol tartrate 50 mg tablet 50 mg PO BID heart 01/11/23 [History Last Taken Unknown] oxycodone 5 mg tablet 5 mg PO Q6H PRN pain 01/11/23 [History Last Taken Unknown] polyethylene glycol 3350 17 gram oral powder packet (Miralax) 17 g PO DAILY bowels 01/11/23 [History Last Taken Unknown] Allergy/AdvReac Type Severity Reaction Status Date / Time prednisone AdvReac Severe Hives Verified 12/18/22 05:23 Family History Grandmother Alcoholism Cancer Arthritis Mother Alcoholism Diabetes blood clots Hypertension Grandfather Heart disease Sister Thyroid disorder Other Breast cancer Cervical cancer Colon cancer Surgical History (Updated 01/11/23 @ 20:[address] Robbin Carlos MD) H/O: hysterectomy History of cardiac catheterization History of carpal tunnel surgery History of section History of coronary artery bypass graft x 3 History of coronary artery stent placement (03/22/18) History of left heart catheterization (09/20/18) Social History (Updated 01/11/23 @ 20:[address] Robbin Carlos MD) household members: none Smoking Status: Never smoker second hand exposure: No alcohol intake: current alcohol intake frequency: holidays/special occasions only substance use type: does not use what type of physical activity do you participate in: none ROS Constitutional Constitutional: Denies chills, fever(s) or weight gain ENT HEENT: Denies headache(s), nasal congestion or nasal discharge Cardiovascular Cardiovascular: Denies chest pain or palpitations Respiratory/Chest Respiratory/Chest: Denies cough, excessive phlegm production or shortness of breath with exertion Gastrointestinal Gastrointestinal: Denies abdominal pain, nausea or vomiting Genitourinary Genitourinary: Denies dysuria Musculoskeletal Musculoskeletal: Denies joint pain or joint swelling Integumentary Integumentary: Denies rash or wounds Neurologic Neurologic: Denies focal weakness, numbness or tingling Psychiatric Psychiatric: Denies anxiety, auditory hallucinations, depression, homicidal ideation or suicidal ideation Vital Signs Vital Signs Vital Signs: 01/11/23 16:52 Temperature 97.3 F L Temperature Source Temporal Pulse Rate 62 Respiratory Rate 17 Blood Pressure 125/69 H Blood Pressure Mean 87 Blood Pressure Source Monitor Blood Pressure Position Semi-Fowlers Blood Pressure Location Left Arm Pulse Ox 96 Oxygen Delivery Method Nasal Cannula Oxygen Flow Rate (L/min) 2 Weight Weight: 76.685 kg Body Mass Index (BMI) 31.1 Physical Exam Const alert General Appearance: cooperative HEENT normocephalic Eyes PERRL and EOMs intact bilaterally Neck supple, no JVD and no carotid bruits Chest Chest Narrative: Sternal incision clean, dry, intact. Resp normal respiratory effort, normal air movement and clear to auscultation bilaterally Cardio regular rate and regular rhythm GI normal to inspection, nondistended, normoactive bowel sounds, non-tender and non-distended Extremity normal capillary refill General Extremity: Negative for edema Skin no rashes or lesions noted General Skin Exam: no breakdown Psych affect normal Appearance: appropriate Results Lab / Micro Data 01/12/23 05:55 01/12/23 05:21 Assessment & Plan Assessment/Plan (1) Debility: (2) History of coronary artery bypass graft x 3: (3) Coronary artery disease: (4) Hypertension: (5) GERD (gastroesophageal reflux disease): (6) Hyperlipidemia: QUALIFIERS: Hyperlipidemia type: pure hypercholesterolemia Qualified Code(s): E78.00 - Pure hypercholesterolemia, unspecified; E78.0 - Purehypercholesterolemia (7) Osteoporosis: (8) Diabetes: (9) Rheumatoid arthritis: (10) Stroke: PLAN: Plan 72 year old female with below past medical history hospitalized for CABG x 3 01/01/2023, admitted to TCU with debility, here for rehabilitation, strengthening, prior to discharge home alone. * Debility - PT/OT. * Pain - Tylenol 1000mg tid, Oxycodone 5mg q6h prn. * Bowel - Miralax 17gm daily. * Adult immunization - Administer pneumonia vaccine, covid19 vaccine, flu vaccine as appropriate. * DVT prophylaxis - Hold, on dual antiplatelet therapy. * Coronary artery disease s/p CABG x 3 - Metoprolol 50mg bid, Plavix 75mg daily, Aspirin 81mg daily. * Hyperlipidemia - Atorvastatin 80mg qhs. * Seizure disorder - Depakote 1000mg bid, 250mg qhs. * Depression - Duloxetine 30mg daily, stable chronic long-term use, GDR not recommended. * Rheumatoid Arthritis - Plaquenil 200mg bicm. * Shortness of breath - Duoneb 3ml tid prn. * Diabetes Mellitus II - Tradjenta 5mg daily. * Nutrition - MVI daily. * GERD - Pantoprazole 40MG daily, TUMS 500mg daily. 01/12/23 0747 <Electronically signed by Robbin Carlos MD> Cosigner Signature (if applicable): CC: Dr. Mayda Garcia MD; Dr. Robbin Carlos MD~ Signed [facility] Work Phone: [phone] 416-201309-10-2023 Miscellaneous Notes* Care Coordination - Unknown Case Management - 01/11/2023 2:45 PM EDT Patient Choice Patient Name: LACY ALVARADO Date of : 1950 * Care Plan - Anna Escalera RN - 01/11/2023 11:12 AM EDT The patient is Moderately Stable - Low risk of patient condition declining or worsening The patient's goals for the shift include transferring to [facility]. [facility] am. All questions were answered, IV removed, monitor removed, and belongings packed into her personal box. Patient understands the importance of continuing all medication. All goals met before discharge with regard to her care plan. * Care Coordination - Lupe Carias RN - 01/11/2023 9:56 AM EDT Weekend task and electronic chart reviewed. DCP-[facility]. Per Shruthijuan [email or web address] [email or web address], we have auth and can accept patient today. Discharge orders sent via Careport to SNF. Transportation arranged with [employer] [facility] for 2 pm pick-up. Patient, , RN and service unit operator oil well notified of same. Tra nsportation form giving to service unit operator oil well. * Care Coordination - Alaina Truong RN - 01/10/2023 2:11 PM EDT Images from the original note were not included. CARE COORDINATION DAILY NOTE/UPDATE Medical Plan: sp CABG x 3 POD # 9. Discharge Plan: [facility] Discharge Barriers: pending medical clearance Received a message from Anna COLLINS I heard from [facility] okay to admit. Stated by Shruthi Marshall if you have any questions. Call placed to Shruthi Marshall to confirm and make arrangements, no answer, left voicemail with my contact information. Chart and Careport reviewed. After hours form on chart. Expected discharge, Discharge Milestones, andRapid Rounding reviewed and updated. TCC will continue [...] Mullins RN 01/02/2023 2:07 PM 01/06/2023 Shruthi Weaver, NET DEVELOPER PROGRAMMER - AROMATHERAPIST 01/01/2023 11:16 AM 01/06/2023 Azam Rose MD 01/01/2023 5:45 AM Length of Stay (Days): 9 GMLOS: 5.9 * Care Coordination - Delores Mullins RN - 01/09/2023 10:21 AM EDT Images from the original note were not included. Care Management Progress Note Patient remains on HLU sp CABG x 3 POD # 8. [facility] can accept, spoke with Shauna in admissions, precert started this morning. Verified no COVID or 7000 needed as a they are short term only. After hours completed,left on chart and updated alyssa Holloway over [...] Mullins RN 01/02/2023 2:07 PM 01/06/2023 Shruthi Weaver, NET DEVELOPER PROGRAMMER - AROMATHERAPIST 01/01/2023 11:16 AM 01/06/2023 Azam Rose MD 01/01/2023 5:45 AM Length of Stay (Days): 8 GMLOS: 5.9 * Care Coordination - Good Jang - 01/09/2023 8:15 AM EDT [facility] Referral placed to [facility] via fax # [phone] to Shauna in Admissions Await review and response regarding ability to accept. TCC notified. * Care Coordination - Good Jang - 01/08/2023 3:06 PM EDT Referral placed to SNF- [facility] via Careport per TCC request. Await review and response regarding ability to accept. TCC notified. * Care Coordination - Delores Mullins RN - 01/08/2023 2:36 PM EDT Spoke with patient at bedside, nipema Holloway over the phone to discuss therapy recommendations. Agreeable to SNF, [facility] and [facility]. * Care Coordination - Delores Mullins RN - 01/07/2023 2:18 PM EDT Images from the original note were not included. Care Management Progress Note Patient remains on HLU s/p CABG x 3 POD # 6. PT continuing to recommend IPR vs SNF. [facility] unable to accept patient, FOC, patient and niece declining SNF, discharge plan is home with [facility]. TCC to follow for updated therapy recs [...] Mullins RN 01/02/2023 2:07 PM 01/06/2023 Shruthi Weaver, NET DEVELOPER PROGRAMMER - AROMATHERAPIST 01/01/2023 11:16 AM 01/06/2023 Azam Rose MD 01/01/2023 5:45 AM Length of Stay (Days): 6 GMLOS: 5.9 * Care Coordination - Delores Mullins RN - 01/06/2023 1:01 PM EDT [facility] unable to accept patient, too functional. Updated patient at bedside and alyssa Holloway (HCPOA) over the phone. Declined SNF at this time, would like to plan discharge home with HHC including PT/OT/SN/NURSE WOUND if possible. Will updated [facility] G[employer] KNIFE [employer] CHOPPER aware. * Care Coordination - Delores Mullins RN - 01/06/2023 8:10 AM EDT Images from the original note were not [...] Mullins RN 01/02/2023 2:07 PM 01/06/2023 Shruthi Weaver APRN - AROMATHERAPIST 01/01/2023 11:16 AM 01/06/2023 Azam Rose MD 01/01/2023 5:45 AM Length of Stay (Days): 5 GMLOS: 5.9 * Care Plan - Arlette Mckeon RN - 01/03/2023 4:08 AM EDT Problem: Knowledge Deficit Goal: Patient/family/caregiver demonstrates understanding of disease process, treatment plan, medications, and discharge instructions Outcome: Progressing Problem: Potential for Compromised Skin Integrity Goal: Skin Integrity is Maintained or Improved Outcome: Progressing Goal: Nutritional status is improving Outcome: Progressing Problem: Urinary Incontinence Goal: Perineal skin integrity is maintained or improved Outcome: Progressing Problem: Problem Interventions Goal: Assess Nutritional Intake Outcome: Progressing * Home Care - Lisa Yo RN - 01/02/2023 3:39 PM EDT Mica Spreader following case for Discharge Needs. * Care Coordination - Delores Mullins RN - 01/02/2023 2:07 PM EDT Care Managment Initial Assessment Date: 01/02/2023 Patient Name: Lacy Alvarado : 1950 Patient Information Source of Information: Patient Cognition/Language: WFL - Within Functional Limits Permission given to speak with patient signs sales representative/caregiver as indicated: Yes Confirmation of Payer with patient/family: Yes Payer Name: Anthem Medicare : No Confirmation of Primary Care [...] Living Prescription Coverage: Yes Pharmacy Used: [facility] Medication Management: Independent Transportation/Shopping: Assistance Provider [...] have a ride home and will task SHAHto follow for home care needs. Delores Mullins RN * Op Note - Azam Rose MD - 01/01/2023 6:57 AM EDT Cardiothoracic Surgery Operative Report Pre-operative Diagnosis: Multivessel coronary artery disease Post-operative Diagnosis: Multivessel coronary artery disease Procedure: Coronary revascularization x4: Left internal mammary artery grafted to the left anteriordescending coronary artery, reverse saphenous vein graft grafted to the obtuse marginal coronary artery, reverse saphenous vein graft graft to the first diagonal coronary artery, reverse saphenous vein graft grafted to the posterior descending branch of the right coronary artery; endoscopic vein harvesting left lower extremity (calf to thigh); intraoperative transesophageal echocardiography Surgeon: Azam Rose MD Resort Manager(s): [] Thomas Silva [x] Rg Marie [x] [...] in the event of an allergy) within 1hour of surgical incision (two hours if receiving [...] Milian. Patient was admitted on 12/18/22 to [facility] with CP. She had a history of [...] an echo done which showed mild (1+) tricuspidvalve insufficiency. The risk benefits and alternatives were discussed in detail with the patient and she agreed to proceed with surgical revascularization. The culprit lesion appeared to be the complex lesion within the circumflex coronary artery. DESCRIPTION OF PROCEDURE: Patient was taken to the operative suite in a fasting state and general endotracheal anesthesia wasinstituted. Monitoring lines were inserted by the department of anesthesia and intraoperative esophageal echocardiography was performed. No valvular pathology was seen. The details will follow under s eparate report. After the patient was positioned prepped and draped in an appropriate timeout conducted, the left lower extremity was incised and the greater saphenous vein was procured from the calf to the thigh using an endoscopic vein harvesting technique. The vein was prepared in the usual fashion and the incisions were closed in usual manner. They have. Simultaneously, median sternotomy was employed and theleft internal mammary artery was harvested in a [...] graft grafted to the PDA of the rightcoronary artery. This anastomosis proceeded smoothly and there was good flow. The target was adequate. Next a reverse saphenous vein graft was grafted to the large OM vessel. This was a good target and the anastomosis proceeded smoothly and there was good flow. Next a reverse saphenous vein graft was grafted to the relatively small first diagonal. This anastomosis proceeded smoothly and there wasgood flow. Last the left internal mammary artery [...] with closure. The sternum was reapproximated with [id number] wires and the overlying tissues were closed in multiple layers. The patient was transported to the intensive care unit in serious but stable condition. documented in this [facility]09-10-2023 Note* Care Coordination - Unknown Case Management - 01/11/2023 2:45 PM EDT Patient Choice Patient Name: LACY ALVARADO Date of : 1950 [id number] Plan of care note* Care Plan - Anna Escalera RN - 01/11/2023 11:12 AM EDT The patient is Moderately Stable - Low risk of patient condition declining or worsening The patient's goals for the shift include transferring to [facility]. [facility] at [facility]5 am. All questions were answered, IV removed, monitor removed, and belongings packed into her personal box. Patient understands the importance of continuing all medication. All goals met before discharge with regard to her care plan. [facility] [id number] Note* Care Coordination - Lupe Carias RN - 01/11/2023 9:56 AM EDT Weekend task and electronic chart reviewed. [facility] Per Shruthi Marshall@ [facility], we have auth and can accept patient today. Discharge orders sent via Careport to SNF. Transportation arranged with [employer] for 2 pm pick-up. Patient, , RN and service unit operator oil well notified of same. Tra nsportation form giving to service unit operator oil well. [facility] [id number] History of Present illness Narrative* GORDO Felix CNP - 01/11/2023 8:00 AM EDT Discussed with TCC and social work; patient obtained auth - Discharge today to [facility] * GORDO Felix CNP - 01/11/2023 6:31 AM EDT Images from the original note were not included. Cardiothoracic Surgery/CCM Progress Note PATIENT NAME: Lacy Alvarado DATE: 01/11/23 HPI: 72 y.o. female was referred by Dr. Bhanu Milian. Patient was admitted on 12/18/22 to [facility] with CP history of CHF, CAD, DM type 2, hyperlipidemia, epilepsy, HTN, RA, LINA, and prior PCI with stent of the left anterior descending artery, a LHC = high grade lesion in the circumflexartery. Patient also had an echo done which showed mild (1+) tricuspid valve insufficiency. She presents for CABG from the OP setting Surgery/Procedure: 01/01/23: CABGx3 with Dr. Rose Interval History: 01/11/23, POD# 10: up independently. Reviewed chart - ?auth obtained. Will reach out to personal assistant TCC/Social work. Pain has been ready from [...] [facility] Central Line: []Yes [x] No Arterial Line: []Yes [x] No Araya: []Yes [x] No Restraints: []Yes [x] No Patient discussed and plan of day developed from multidisciplinary rounds between Cardiothoracic Surgery (Cardiothoracic Surgeon, SONYA) and Critical Care Attending Cardiac Core Medications: ASA, Plavix, Statin, and BB EF: normal 01/01/23 Blood Conservation: Transfused postoperatively Paper Tester: [facility] * Kassy Tabares, NET DEVELOPER PROGRAMMER - AROMATHERAPIST - 01/10/2023 6:03 AM EDT Images from the original note were not included. Cardiothoracic Surgery/[facility] Progress Note PATIENT NAME: Lacy Alvarado DATE: 01/10/23 HPI: 72 y.o. female was referred by Dr. Bhanu Milian. Patient was admitted on 12/18/22 to [facility] with CP history of CHF, CAD, DM type 2, hyperlipidemia, epilepsy, HTN, RA, LINA, and prior PCI with stent of the left anterior descending artery, a LHC = high grade lesion in the circumflexartery. Patient also had an echo done which showed mild (1+) tricuspid valve insufficiency. She presents for CABG from the OP setting Surgery/Procedure: 01/01/23: CABGx3 with Dr. Rose Interval History: 01/10/23, POD# 9: VSS up in chair on RA. No acute issues overnight. Ready to get out of here and onto the next place (pending [facility]) Review of Systems Constitutional: [...] DVT prophy:TEDs, SCDs, and Heparin SubQ Disposition: [facility] pending precert. Likely thu or thursday Central Line: []Yes [x] No Arterial Line: []Yes [x] No Araya: []Yes [x] No Restraints: []Yes [x] No Patient discussed and plan of day developed from multidisciplinary rounds between Cardiothoracic Surgery (Cardiothoracic Surgeon, SONYA) and Critical Care Attending Cardiac Core Medications: ASA, Plavix, Statin, and BB EF: normal 01/01/23 Blood Conservation: Transfused postoperatively Paper Tester: [facility] * Samaria Li PTA - 01/09/2023 1:09 PM EDT Physical Therapy Facility/Department: [facility] Physical Therapy Daily Treatment Note NAME: Lacy [...] anterior wt shift and momentum required to compl ete. Pt ambulated 355ft with 2 seated rest [...] assistance to complete 3 flights. Without assist, sheis a fall risk and is not safe to return home at this time. Recommend IP Rehab vs SNF at discharge for improved endurance and strength to complete stairs safely with Larimore to avoid a fall. Performance Deficits/Impairments: Decreased functional mobility , Decreased endurance, Increased pain, Decreased ADL status, Decreased strength, Decreased posture, Decreased balance Patient Diagnosis(es): The primary encounter diagnosis was CAD in [place] artery. A diagnosis of Coronary artery disease involving coronary bypass graft, unspecified whether angina present, unspecified whether [place] or transplanted heart was also pertinent to this visit. has a past medical history of CHF (congestive heart failure) ([facility]/HCC) ([facility]), Diabetes mellitus ([facility]), GERD (gastroesophageal reflux disease), Hyperlipidemia, Hypertension, RA (rheumatoid arthritis) ([facility]), Seizure ([facility]), Seizures ([facility]), and Sleep apnea. has a past [...] / Caregiver Present: No Diagnosis: CAD in [place] artery s/p CABG on 01/01 Follows Commands: Within Functional Limits Subjective Subjective: Pt sitting in recliner. Agreeable to PT. RN cleared for treatment. Pt reports feling better today. Reports incisional chest pain but does not rate. Reports upset d/t passing of her sisterwhich she learned of today. RN aware. Patient [...] 3/3. SBA x 4 from various surface heights.Good anterior wt shift. Maintains sternal precautions with [...] session but continues to be slower than normalpace. Reported fatigue and SOB with progressive ambulation. x 2 seated rest breaks. Cues for pursedlip breathing. No LOB. Increased time required. Cues [...] to LRD in order to improve safety andprepare for out of bed mobility. (Progressing) Start: [...] sternal precuations, performing P&C's Indep daily. Ambulating withstaff multiple times daily. Stair training Education Method: Verbal Barriers to Learning: None Education Outcome: Verbalized understanding Therapy Time Individual Co-treatment Time In 1205 Time Out 1235 Minutes 30 Timed Code Treatment Minutes: 30 Minutes (FA, GT) EXTENSION WORK INSTRUCTOR wore PPE in compliance with hospital guidelines and regulation when treating this patient. Samaria Li, EXTENSION WORK INSTRUCTOR * Kassy Tabares, GORDO - AROMATHERAPIST - 01/09/2023 6:04 AM EDT Images from the original note were not included. Cardiothoracic Surgery/CCM Progress Note PATIENT NAME: Lacy Alvarado DATE: 01/09/23 HPI: 72 y.o. female was referred by Dr. Bhanu Milian. Patient was admitted on 12/18/22 to [facility] with CP history of CHF, CAD, DM type 2, hyperlipidemia, epilepsy, HTN, RA, LINA, and prior PCI with stent of the left anterior descending artery, a LHC = high grade lesion in the circumflexartery. Patient also had an echo done which showed mild (1+) tricuspid valve insufficiency. She presents for CABG from the OP setting Surgery/Procedure: 01/01/23: CABGx3 with Dr. Rose Interval History: 01/09/23, POD# 8: VSS on RA; up moving around with nursing. Voiding appropriately. SNF pending -->would like [facility] if able. Review of Systems Constitutional: [...] SubQ Disposition: TBD; pending discharge to hopefully [facility]. Central Line: []Yes [x] No Arterial Line: []Yes [x] No Araya: []Yes [x] No Restraints: []Yes [x] No Patient discussed and plan of day developed from multidisciplinary rounds between Cardiothoracic Surgery (Cardiothoracic Surgeon, SONYA) and Critical Care Attending Cardiac Core Medications: ASA, Statin, and BB EF: normal 01/01/23 Blood Conservation: Transfused postoperatively Paper Tester: [facility] * Samaria Li, EXTENSION WORK INSTRUCTOR - 01/08/2023 10:17 AM EDT Physical Therapy Facility/Department: [facility] Physical Therapy Daily Treatment Note NAME: Lacy [...] Stair Training completed with single HR and non- reciprocal gait. Required SBA/CGA for safety as pt [...] and strength to complete stairs safely with Larimore to avoid a fall. Performance Deficits/Impairments: Decreased functional mobility , Decreased endurance, Increased pain, Decreased ADL status, Decreased strength, Decreased posture, Decreased balance Treatment Diagnosis: limited mobility Decision Making: Medium Complexity Patient Diagnosis(es): The primary encounter diagnosis was CAD in [place] artery. A diagnosis of Coronary artery disease involving coronary bypass graft, unspecified whether angina present, unspecified whether [place] or transplanted heart was also pertinent to this visit. has a past medical history of CHF (congestive heart failure) (CMS/HCC) ([facility]), Diabetes mellitus (HCC), GERD (gastroesophageal reflux disease), Hyperlipidemia, Hypertension, RA (rheumatoid arthritis) ([facility]), Seizure (HCC), Seizures ([facility]), and Sleep apnea. has a past [...] / Caregiver Present: No Diagnosis: CAD in [place] artery s/p CABG on 01/01 Follows Commands: [...] to LRD in order to improve safety andprepare for out of bed mobility. (Progressing) Start: [...] sternal precuations, performing P&C's Indep daily. Ambulating withstaff multiple times daily. Stair training Education Method: Verbal Barriers to Learning: None Education Outcome: Verbalized understanding Therapy Time Individual Co-treatment Time In 08 Time Out 09 Minutes 39 Timed Code Treatment Minutes: 39 Minutes (FA, GT. TP) EXTENSION WORK INSTRUCTOR wore PPE in compliance with hospital guidelines and regulation when treating this patient. Samaria Li, EXTENSION WORK INSTRUCTOR * Chandler Ram, NET DEVELOPER PROGRAMMER - AROMATHERAPIST - 01/08/2023 6:04 AM EDT Images from the original note were not included. Cardiothoracic Surgery/CCM Progress Note PATIENT NAME: Lacy Alvarado DATE: 01/08/23 HPI: 72 y.o. female was referred by Dr. Bhanu Milian. Patient was admitted on 12/18/22 to [facility] with CP history of CHF, CAD, DM type 2, hyperlipidemia, epilepsy, HTN, RA, LINA, and prior PCI with stent of the left anterior descending artery, a LHC = high grade lesion in the circumflexartery. Patient also had an echo done which showed mild (1+) tricuspid valve insufficiency. She presents for CABG from the OP setting Surgery/Procedure: 01/01/23: Dr. Rose- CABGx3 Interval History: 01/08/23, POD# 07: Afebrile, NSR on tele, BP stable, on RA. No labs ordered for this AM. Patient unfortunately denied IPR, does not want SNF. Sitting up in chair this AM. No complaints. Conversationsongoing with family about living arrangements at [place]. Review of Systems Constitutional: Negative for chills, [...] (Calculated): 31.29 BMP: Recent Labs 01/06/23 0034 01/07/23 0247 NA 136 137 K 3.9 4.2 CL 98 101 CO2 27 27 BUN 39* 30* CREATININE 0.99 0.91 CALCIUM 8.6 8.5 MG 2.7* 2.4* CBC: Recent Labs 01/06/23 0034 01/07/23 0247 WBC 5.6 5.4 HGB 10.2* 10.3* HCT [...] EF: Normal (01/01/23) Blood Conservation: Transfused post-op. Paper Tester: [facility] * Talita Haque RD - 01/07/2023 1:17 PM EDT Nutrition Assessment Type and Reason for Visit: Reassess Nutrition Recommendations/Plan: Suggest liberalizing diet to regular diet to promote p.o. intake. Pt is not eating enough to meet carbohydrate limit Per MNT protocol, will order Ensure HP TID to promote p.o. intake and postop healing (160 kcal, 16 g protein, 8 oz each) Pt was provided with heart healthy diet handout with [facility] [address] phone number at initial assessment. Will [...] muscle mass loss Fluid Accumulation: Mild Extremities Methods Specialist Engineer Strength: Not Performed Nutrition Assessment: Pt with PMH including HTN, DM, HLD, CHF, RA, epilepsy, GERD, LINA, prior PCI, presented to [facility] on 01/01/23 for CABG after recent admissiont to [facility] on 12/18/22 and had LHC which showed [...] On: Kcal/kg Weight Used for Energy Requirements: [place] (25-30 kcal/kg) Weight for Energy Calculation (kg): 50 kg Total Energy Requirements (kcals/day): 4438-3296 Weight Used for Protein Requirements: [place] (1.2-1.5 g/kg) Weight in Kg Used for [...] Ordered Anthropometric Measures: Height: 157.5 cm (5' 2) Current Body Weight: 77.6 kg (171 lb 1.6 oz) (01/07) Admission Body Weight: 78 kg (172 lb) (no method) [place] Body Weight (lbs) (Calculated): 110 lbs [place] Body Weight (Kg) (Calculated): 50 kg % [place] Body Weight (Calculated): 157.9 % BMI (kg/m2) [...] to determine Talita Haque RD, LD Contact: *[phone] or via Maptia chat * Kristel Beard MD - 01/07/2023 11:03 AM EDT Department of Internal Medicine Division of Endocrinology, Diabetes, & Metabolism Endocrinology Note Patient Name: Lacy Alvarado : 1950 AGE: 72 y.o. Room[facility]Bed: [facility] A Admission Date: 01/01/2023 Visit Date: 01/07/2023 Reason for Endocrine Consult: post op heart Provider/Team Requesting Consult: cts PCP: MAYDA GARCIA Outpt Bottle Booth Attendant: No ASSESSMENT: DM 2 with hyperglycemia without long-term insulin Stress hyperglycemia CAD s/p Cabgx4 PLAN: [...] OR potassium chloride 20 mEq in sodium c hloride 0.9 % 250 mL IVPB OR potassium chloride 40 mEq in sodium chloride 0.9 % 500 mL IVPB, potassium chloride CR, sodium chloride Diagnostic Workup: I reviewed pertinent Laboratory results, Radiographic results, and Other Clinical Notes at the timeof today's encounter. Labs: No components found for: [...] found for: CHOLHDLRATIO No results found for: [id number] No results found for: TSH, N5QLJVG, R6KNNPM, THYROIDAB Radiology reportsas per the Radiologist Radiology: [...] state/prognosis on the date of this note. * Samaria Li, EXTENSION WORK INSTRUCTOR - 01/07/2023 10:41 AM EDT Physical Therapy Facility/Department: [facility] Physical Therapy Daily Treatment Note NAME: Lacy [...] apartment. Pt will require increased time and physicalassistance to complete 3 flights. Recommend IP Rehab vs SNF at discharge for improved endurance andstrength to complete stairs safely and avoid a fall. Performance Deficits/Impairments: Decreased functional mobility , Decreased endurance, Increased pain, Decreased ADL status, Decreased strength, Decreased posture, Decreased balance Patient Diagnosis(es): The primary encounter diagnosis was CAD in [place] artery. A diagnosis of Coronary artery disease involving coronary bypass graft, unspecified whether angina present, unspecified whether [place] or transplanted heart was also pertinent to this visit. has a past medical history of CHF (congestive heart failure) (CMS/HCC) ([facility]), Diabetes mellitus ([facility]), GERD (gastroesophageal reflux disease), Hyperlipidemia, Hypertension, RA (rheumatoid arthritis) ([facility]), Seizure ([facility]), Seizures ([facility]), and Sleep apnea. has a past [...] / Caregiver Present: No Diagnosis: CAD in [place] artery s/p CABG on 01/01 Follows Commands: [...] heights. Good anterior wt shift and use ofsternal pillow. Pt able to maintain sternal precautions with cues throughout. Increaswed time required. Frequent and extended rest breaks. Pt reports SOBOE but no visible signs noted. Cues for pursedlip breathing throughout. SpO2 97% throughout. Denies dizziness. No LOB noted. General unsteadinessobserved, requiring overall SBA for safety. Ambulation Ambulation: [...] to LRD in order to improve safety andprepare for out of bed mobility. (Progressing) Start: [...] sternal precuations, performing P&C's Indep daily. Ambulating withstaff multiple times daily. Stair training Education Method: Verbal Barriers to Learning: None Education Outcome: Verbalized understanding Therapy Time Individual Co-treatment Time In 0842 Time Out 0924 Minutes 42 Timed Code Treatment Minutes: 42 Minutes (FA, GT x 2) EXTENSION WORK INSTRUCTOR wore PPE in compliance with hospital guidelines and regulation when treating this patient. Samaria Li, EXTENSION WORK INSTRUCTOR * Shruthi Weaver, NET DEVELOPER PROGRAMMER - AROMATHERAPIST - 01/07/2023 5:53 AM EDT Images from the original note were not included. Cardiothoracic Surgery/CCM Progress Note PATIENT NAME: Lacy Alvarado DATE: 01/07/23 HPI: 72 y.o. female was referred by Dr. Bhanu Milian. Patient was admitted on 12/18/22 to [facility] with CP history of CHF, CAD, DM type 2, hyperlipidemia, epilepsy, HTN, RA, LINA, and prior PCI with stent of the left anterior descending artery, a LHC = high grade lesion in the circumflexartery. Patient also had an echo done which showed mild (1+) tricuspid valve insufficiency. She presents for CABG from the OP setting Surgery/Procedure: 01/01/23: Dr. Rose - CABG x 3 Interval History: 01/07/23, POD# 6: VSS overnight, NSR on tele, on RA. Resting in chair, no acute concerns. Discussedd/c plan, too functional for IPR and does [...] EF: 01/01: Normal Blood Conservation: Transfused postop Paper Tester: [facility] * Wendy Curran - 01/06/2023 11:33 AM EDT Occupational Therapy Facility/Department: T1 Occupational Therapy Initial Evaluation NAME: Lacy Alvarado [...] Decreased safe awareness, Decreased high-level IADLs, Decreased ROM,Decreased balance Assessment: OT eval completed. Pt is [...] The primary encounter diagnosis was CAD in [place] artery. A diagnosis of Coronary artery disease involving coronary bypass graft, unspecified whether angina present, unspecified whether [place] or transplanted heart was also pertinent to this visit. has a past medical history of CHF (congestive heart failure) ([facility]/HCC) ([facility]), Diabetes mellitus ([facility]), GERD (gastroesophageal reflux disease), Hyperlipidemia, Hypertension, RA (rheumatoid arthritis) ([facility]), Seizure ([facility]), Seizures ([facility]), and Sleep apnea. has a past [...] understanding Therapy Time Individual Co-treatment Time In 0930 Time Out 0951 Minutes 21 Patient's Occupational Therapy Plan of Care supervision is transferred to [facility] Occupational Therapist. Goals and/or treatment plan was established in collaboration with patient/family/other representatives. Wendy Curran S/OT * Samaria Li PTA - 01/06/2023 10:07 AM EDT Physical Therapy Facility/Department: [facility] Physical Therapy Daily Treatment Note NAME: Lacy [...] rest breaks d/t fatigue. P&C exercises completed toimprove ROM and healing. Mild SOB with cues for pursed lip breathing throughout SpO2 >92% at all times on RA. Increased time required for all task completion. Pt with limited endurance and must beable to complete 3 flights of stairs to return home and enter her apartment. Recommend IP Rehab at discharge. Performance Deficits/Impairments: Decreased functional mobility , Decreased endurance, Increased pain, Decreased ADL status, Decreased strength, Decreased posture, Decreased balance Treatment Diagnosis: limited mobility Decision Making: Medium Complexity Barriers to Learning: none Patient Diagnosis(es): The primary encounter diagnosis was CAD in [place] artery. A diagnosis of Coronary artery disease involving coronary bypass graft, unspecified whether angina present, unspecified whether [place] or transplanted heart was also pertinent to this visit. has a past medical history of CHF (congestive heart failure) ([facility]/HCC) (HCC), Diabetes mellitus (HCC), GERD (gastroesophageal reflux disease), Hyperlipidemia, Hypertension, RA (rheumatoid arthritis) (HCC), Seizure (HCC), Seizures (HCC), and Sleep apnea. has a past surgical [...] / Caregiver Present: No Diagnosis: CAD in [place] artery s/p CABG on 01/01 Follows Commands: [...] to LRD in order to improve safety andprepare for out of bed mobility. (Progressing) Start: [...] sternal precuations, performing P&C's Indep daily. Ambulating withstaff multiple times daily. Education Method: Verbal Barriers to Learning: None Education Outcome: Verbalized understanding Therapy Time Individual Co-treatment Time In 0802 Time Out 0842 Minutes 40 Timed Code Treatment Minutes: 40 Minutes (FA, GT, TP) EXTENSION WORK INSTRUCTOR wore PPE in compliance with hospital guidelines and regulation when treating this patient. Samaria Li, EXTENSION WORK INSTRUCTOR * Shruthi Weaver, NET DEVELOPER PROGRAMMER - AROMATHERAPIST - 01/06/2023 6:06 AM EDT Images from the original note were not included. Cardiothoracic Surgery/CCM Progress Note PATIENT NAME: Lacy Alvarado DATE: 01/06/23 HPI: 72 y.o. female was referred by Dr. Bhanu Milian. Patient was admitted on 12/18/22 to [facility] with CP history of CHF, CAD, DM type 2, hyperlipidemia, epilepsy, HTN, RA, LINA, and prior PCI with stent of the left anterior descending artery, a LHC = high grade lesion in the circumflexartery. Patient also had an echo done which [...] change, appetite change and fatigue. Negative for diaphoresisand fever. Respiratory: Negative for cough, shortness of [...] EF: 01/01: Normal Blood Conservation: Transfused postop Paper Tester: [facility] Associated attestation - Bridger Woods MD - 01/06/2023 5:30 PM EDT I have personally seen the patient and examined along with the SONYA/resident team. I personally obtained the hunter and relevent portions of the history and performed physical exam. I reviewed the chart including MAR , labs and radiology and discussed the patient's plan of action with the resident/SONYA.This note reflects my plan of care as I have edited the note to reflect my findings and my assessment and plan. Date of service: 01/06/23 Discussed with: []Residents [x]Patient/Family [x]RN []Consultants [x]SW/TCC []Other [x]SONAY Personally Reviewed: [x]Epic notes [x]Radiology studies [x]Labs [...] w/ dates: PIV GOC/Family Discussions: Full code * Angela Smith MD - 01/05/2023 10:30 AM EDT Department of Internal Medicine Division of Endocrinology, Diabetes, & Metabolism Endocrinology Note Patient Name: Lacy Alvarado : 1950 AGE: 72 y.o. Room/Bed: [facility]/[address] Admission Date: 01/01/2023 Visit Date: 01/05/2023 Reason for Endocrine Consult: post op heart Provider/Team Requesting Consult: cts PCP: MAYDA GARCIA Outpt Bottle Booth Attendant: No ASSESSMENT: DM 2 with hyperglycemia without termite control representative insulin Stress hyperglycemia CAD s/p Cabgx4 PLAN: [...] results, and Other Clinical Notes at the timeof today's encounter. Labs: No components found for: [...] found for: CHOLHDLRATIO No results found for: [id number] No results found for: TSH, J5GPLYY, N8LNJGS, THYROIDAB Radiology reportsas per the Radiologist Radiology: [...] state/prognosis on the date of this note. * Chandler Ram, GORDO - AROMATHERAPIST - 01/05/2023 6:19 AM EDT Images from the original note were not included. Cardiothoracic Surgery/[facility] Progress Note PATIENT NAME: Lacy Alvarado DATE: 01/05/23 HPI: Lacy Alvarado is a 72 y.o. female was referred to us by Dr. Bhanu Milian. Patient was admitted on12/18/22 to [facility] with CP history of CHF, CAD, DM [...] Labs 01/03/23 0014 01/04/23 0309 01/05/23 0041 NA 136 135 137 K 4.4 3.9 [...] SCDs Disposition: Recommending IPR. Patient lives on [address] [place] [address], would likely benefit from rehab. Start process [...] Nomal (SIS 01/01/23) Blood Conservation: Transfused post-op. Paper Tester: [facility] Associated attestation - Bridger Woods MD - 01/05/2023 2:26 PM EDT I have personally seen the patient and examined along with the SONYA/resident team. I personally obtained the hunter and relevent portions of the history and performed physical exam. I reviewed the chart including MAR , labs and radiology and discussed the patient's plan of action with the resident/SONYA.This note reflects my plan of care as [...] w/ dates: PIV GOC/Family Discussions: Full code * GORDO Alvarez CNP - 01/04/2023 2:52 PM EDT Images from the original note were not [...] Patient and nurse educated on possible complications toobserve for. Will continue to monitor. * Ambreen Avitia, PT - 01/04/2023 1:07 PM EDT Physical Therapy Facility/Department: [facility] Physical Therapy Daily Treatment Note NAME: Lacy Alvarado : 1950 Date of Service: 01/04/2023 Discharge Recommendations: IP Rehab PT Equipment Recommendations Equipment Needed: No Assessment Requires PT Follow-Up: Yes Assessment: Pt is progressing towards PT goals. Seated rest break required on the rollator during ambulation in the hassan d/t fatigue and mild SOB. Pt has limited endurance still, and she must be ableto complete 3 flights of stairs prior to returning to home to enter her apartment. Currently, recommend IP Rehab at disch. Performance Deficits/Impairments: Decreased functional mobility , Decreased endurance, Increased pain, Decreased ADL status, Decreased strength, Decreased posture, Decreased balance Decision Making: Medium Complexity Patient Diagnosis(es): The primary encounter diagnosis was CAD in [place] artery. A diagnosis of Coronary artery disease involving coronary bypass graft, unspecified whether angina present, unspecified whether [place] or transplanted heart was also pertinent to this visit. has a past medical history of CHF (congestive heart failure) (CMS/HCC) (HCC), Diabetes mellitus (HCC), GERD (gastroesophageal reflux disease), Hyperlipidemia, Hypertension, RA (rheumatoid arthritis) (HCC), Seizure (HCC), Seizures (HCC), and Sleep apnea. has a past surgical [...] / Caregiver Present: No Diagnosis: CAD in [place] artery s/p CABG on 01/01 Follows Commands: [...] assistance Comment: STS x 3 for transfers recliner>rollator>toilet>recliner. Cues for sternal precautions throughout Ambulation Ambulation: [...] to LRD in order to improve safety andprepare for out of bed mobility. (Progressing) Start: [...] sternal precuations, performing P&C's Indep daily. Ambulating withstaff multiple times daily. Education Method: Verbal Barriers to Learning: None Education Outcome: Verbalized understanding Therapy Time Individual Co-treatment Time In 1128 Time Out 1201 Minutes 33 Timed Code Treatment Minutes: (x1 Gait, x1 TP) Patient s Physical Therapy Plan of Care supervision is transferred to [facility] Rehab Department Physical Therapist. Ambreen Avitia PT * Angela Smith MD - 01/04/2023 10:34 AM EDT Department of Internal Medicine Division of Endocrinology, Diabetes, & Metabolism Endocrinology Note Patient Name: Lacy Alvarado : 1950 AGE: 72 y.o. Room/Bed: T1103/[facility]103 A Admission Date: 01/01/2023 Visit Date: 01/04/2023 Reason for Endocrine Consult: post op heart Provider/Team Requesting Consult: cts PCP: MAYDA GARCIA Outpt Bottle Booth Attendant: No ASSESSMENT: DM 2 with hyperglycemia without long-term insulin Stress hyperglycemia CAD s/p Cabgx4 PLAN: [...] Vitals: 01/04/23 0000 01/04/23 0400 01/04/23 0600 01/04/23926 BP: 121/73 119/66 123/56 BP Location: Right [...] results, and Other Clinical Notes at the timeof today's encounter. Labs: No components found for: [...] found for: CHOLHDLRATIO No results found for: [id number] No results found for: TSH, S4NXQBG, I0TEKGI, THYROIDAB Radiology reportsas per the Radiologist Radiology: ECG 12 lead Result Date: 01/01/2023 Sinus rhythm History/Other: Past Medical History: Past Medical History: Diagnosis Date CHF (congestive heart failure) ([facility]/HCC) (HCC) Diabetes mellitus (HCC) GERD (gastroesophageal reflux disease) Hyperlipidemia Hypertension RA (rheumatoid arthritis) ([facility]) Seizure (HCC) last seizure 5 months ago nathaniel murray 08/24 Seizures ([facility]) Sleep apnea Past Surgical History: Past [...] state/prognosis on the date of this note. * Chandler Ram, NET DEVELOPER PROGRAMMER - AROMATHERAPIST - 01/04/2023 6:02 AM EDT Images from the original note were not included. Cardiothoracic Surgery/CCM Progress Note PATIENT NAME: Lacy Alvarado DATE: 01/04/23 HPI: Lacy Alvarado is a 72 y.o. female was referred to us by Dr. Bhanu Milian. Patient was admitted on12/18/22 to [facility] with CP history of CHF, CAD, DM [...] NC. Sitting up in chair this AM, feelingokay. +BM yesterday. Ambulating with nursing. Poor appetite [...] Nomal (SIS 01/01/23) Blood Conservation: Transfused post-op. Paper Tester: [facility] * nAgela Smith MD - 01/03/2023 9:18 AM EDT Department of Internal Medicine Division of Endocrinology, Diabetes, & Metabolism Endocrinology Note Patient Name: Lacy Alvarado : 1950 AGE: 72 y.o. Room/Bed: [facility] A Admission Date: 01/01/2023 Visit Date: 01/03/2023 Reason for Endocrine Consult: post op heart Provider/Team Requesting Consult: cts PCP: MAYDA GARCIA Outpt Bottle Booth Attendant: No ASSESSMENT: DM 2 with hyperglycemia without long-term insulin Stress hyperglycemia CAD s/p Cabgx4 PLAN: [...] results, and Other Clinical Notes at the timeof today's encounter. Labs: No components found for: [...] found for: CHOLHDLRATIO No results found for: [id number] No results found for: TSH, W5MNMJH, W6SGCQY, THYROIDAB Radiology reportsas per the Radiologist Radiology: ECG 12 lead Result Date: 01/01/2023 Sinus rhythm History/Other: Past Medical History: Past Medical History: Diagnosis Date CHF (congestive heart failure) (CMS/HCC) (HCC) Diabetes mellitus (HCC) GERD (gastroesophageal reflux disease) Hyperlipidemia Hypertension RA (rheumatoid arthritis) (HCC) Seizure (HCC) last seizure 5 months ago gannapoleon murray 08/24 Seizures (HCC) Sleep apnea Past [...] state/prognosis on the date of this note. * Chandler Ram, NET DEVELOPER PROGRAMMER - AROMATHERAPIST - 01/03/2023 5:56 AM EDT Images from the original note were not included. Cardiothoracic Surgery/CCM Progress Note PATIENT NAME: Lacy Alvarado DATE: 01/03/23 HPI: Lacy Alvarado is a 72 y.o. female was referred to us by Dr. Bhanu Milian. Patient was admitted on12/18/22 to [facility] with CP history of CHF, CAD, DM [...] Nomal (SIS 01/01/23) Blood Conservation: Transfused post-op. Paper Tester: [facility] * Aleksandr Higuera, PT - 01/02/2023 11:02 AM EDT Physical Therapy Facility/Department: [facility] Physical Therapy Initial Evaluation NAME: Lacy Alvarado [...] The primary encounter diagnosis was CAD in [place] artery. A diagnosis of Coronary artery disease involving coronary bypass graft, unspecified whether angina present, unspecified whether [place] or transplanted heart was also pertinent to this visit. has a past medical history of CHF (congestive heart failure) ([facility]/HCC) ([facility]), Diabetes mellitus ([facility]), GERD (gastroesophageal reflux disease), Hyperlipidemia, Hypertension, RA (rheumatoid arthritis) ([facility]), Seizure ([facility]), Seizures ([facility]), and Sleep apnea. has a past [...] / Caregiver Present: No Diagnosis: CAD in [place] artery s/p CABG on 01/01 Follows Commands: [...] with min assist and cues for posture. Overallpain did not increase with mobility secondary to medication. Pt did not report feeling lightheaded or dizzy while up. Pt stood for several minutes each trial. Exercises Upper Extremity: P + C exercises 1 and 3 performed for 5-6 reps each, remaining exercises discussedbut pain and fatigue limited attempted performance. Plan [...] to LRD in order to improve safety andprepare for out of bed mobility. Start: 01/02/23 [...] understanding Therapy Time Individual Co-treatment Time In 09 (one eval mod complex, one FA) Time Out 0955 Minutes 25 Timed Code Treatment Minutes: 8 Minutes PT wore gloves throughout entire session with patient. Patient s Physical Therapy Plan of Care supervision is transferred to [facility] Rehab Department Physical Therapist. Aleksandr Higuera, PT * Cassandra Olivarez, NET DEVELOPER PROGRAMMER - PRINTING GREY CLOTH TENDER - 01/02/2023 9:28 AM EDT Department of Internal Medicine Division of Endocrinology, Diabetes, & Metabolism Endocrinology Note Patient Name: Lacy Alvarado : 1950 AGE: 72 y.o. Room/Bed: [facility] A Admission Date: 01/01/2023 Visit Date: 01/02/2023 Reason for Endocrine Consult: post op heart Provider/Team Requesting Consult: cts PCP: MAYDA GARCIA Outpt Bottle Booth Attendant: No ASSESSMENT: Cad s/p Cabgx4 Dm2 with hyperglycemia without long-term insulin Stress hyperglycemia Chf Hld/htn PLAN: discontinue [...] results, and Other Clinical Notes at the timeof today's encounter. Labs: No components found for: [...] found for: CHOLHDLRATIO No results found for: [id number] No results found for: TSH, X9RBAPJ, F7UEZHX, THYROIDAB Radiology reportsas per the Radiologist Radiology: [...] plan of care (with modifications noted if any),and discussed the management plan. I have performed [...] coordination of care as documented in note. * GORDO Alvarez CNP - 01/02/2023 5:56 AM EDT Images from the original note were not included. Cardiothoracic Surgery/CCM Progress Note PATIENT NAME: Lacy Alvarado DATE: 01/02/23 HPI: Lacy Alvarado is a 72 y.o. female was referred to us by Dr. Bhanu Milian. Patient was admitted on12/18/22 to [facility] with CP history of CHF, CAD, DM [...] Nomal (SIS 01/01/23) Blood Conservation: Transfused post-op. Paper Tester: [facility] Associated attestation - Carlos Chavarria [...] care time 35 minutes documented in this [facility]09-09-2023 Note* Care Coordination - Alaina Truong RN - 01/10/2023 2:11 PM EDT Images from the original note were not included. CARE COORDINATION DAILY NOTE/UPDATE Medical Plan: sp CABG x 3 POD # 9. Discharge Plan: [facility] Discharge Barriers: pending medical clearance Received a message from Anna COLLINS I heard from [facility] okay to admit. Stated by Shruthi Marshall if you have any questions. Call placed to Shruthi Marshall to confirm and make arrangements, no answer, left voicemail with my contact information. Chart and Careport reviewed. After hours form on chart. Expected discharge, Discharge Milestones, andRapid Rounding reviewed and updated. TCC will continue [...] Mullins RN 01/02/2023 2:07 PM 01/06/2023 Shruthi Weaver, NET DEVELOPER PROGRAMMER - SERENA 01/01/2023 11:16 AM 01/06/2023 Azam Rose MD 01/01/2023 5:45 AM Length of Stay (Days): 9 GMLOS[facility] 5.9 [id number]* Care Coordination - Delores Mullins RN - 01/09/2023 10:21 AM EDT Images from the original note were not included. Care Management Progress Note Patient remains on [facility]U sp CABG x 3 POD # 8. [facility] can accept, spoke with Shauna in admissions, precert started this morning. Verified no COVID or 7000 needed as a they are short term only. After hours completed,left on chart and updated alyssa Holloway over [...] Mullins RN 01/02/2023 2:07 PM 01/06/2023 Shruthi Weaver APRN - SERENA 01/01/2023 11:16 AM 01/06/2023 Azam Rose MD 01/01/2023 5:45 AM Length of Stay (Days): 8 GMLOS: 5.9 [facility] [facility] [id number] Hospital Discharge instructions* Discharge Instructions* Kassy Tabares APRN - SERENA - 01/09/2023 8:42 AM EDT Cardiothoracic Surgery: Symptom Management Office phone number: [phone] Office is open 8:30 am -4 pm. If you need assistance after hours, this will direct you to a nursinghotline. GREEN ZONE: All Clear- Your Symptoms Are Under Control Incisional pain is managed by taking Acetaminophen and/or pain medication No increase in shortness of breath No increase in leg swelling or weight gain No frequent lightheadedness/dizziness No redness or drainage from incisions. Small amount of thin, blood tinged or yellow drainage is notuncommon for few days post discharge This Means [...] Call cardiothoracic surgery line for further instructions: [phone] Office is open 8:30 am -4 pm. If you need assistance after hours, this will direct you to a nursinghotline. RED ZONE: Medical Alert Severe shortness of breath at rest Severe chest pain/pressure or pain that radiates to neck, jaw, back, and/or arm that is NOT relieved with rest and pain medication. May be similar to pain prior to surgery Passing out or fainting This Means You Should: call EMS or seek care in Emergency Department * Discharge Instr - MAGALI* Anna Escalera RN - 01/09/2023 7:06 AM EDT Continuity of Care Form Patient Name: Lacy Alvarado : 1950 Admit date: 01/01/2023 Discharge date: 01/11/2023 Code Status Order: Full Code Advance Directives: N Admitting Physician: Azam Rose MD PCP: MAYDA GARCIA Discharging Nurse: Anna Escalera RN Discharging Hospital Unit/Room#: T1-103/T1103 A Discharging Unit Emergency Contact: Extended Emergency Contact Information Primary Emergency Contact: Devendra Samuel Mobile Relation: Mother Secondary Emergency Contact: Bhupinder Gomez Mobile Relation: Niece Past Surgical History: Past Surgical History: Procedure Laterality Date CARDIAC CATHETERIZATION COLONOSCOPY CORONARY STENT PLACEMENT 03/22/2018 HYSTERECTOMY Immunization History: Immunization History Administered Date(s) Administered Moderna SARS-CoV-2 Vaccination 07/11/2020, 08/09/2020, 05/24/2021 Active Problems: Medical Problems Problem List * (Principal) CAD in [place] artery Allergic disorder Amnesia Arthritis Overview Signed 01/01/2023 3:09 PM by Juan J Zuluaga MD Reported to be RA per patient. Was with Rheum, will get records. On plaquinil for 1 year, no problems. Osteoarthritis of spine with radiculopathy, lumbar region Back strain Calcific tendinitis Cerebrovascular disease Cervico-occipital neuralgia Chronic diastolic heart failure (HCC) Chronic rhinitis Compression fracture of lumbar vertebra ([facility]) Contusion of sacral region Cough DDD (degenerative disc disease), lumbar Dissociative disorder DM2 (diabetes mellitus, type 2) ([facility]) Overview Signed 01/01/2023 3:09 PM by Juan J Zuluaga MD Last Assessment & Plan: When she wakes up in the morning sugars are in the 120 range. Those numbers are running in the range of 118 or more depends on what she eats. Seizure disorder ([facility]/HCC) ([facility]) Epilepsy ([facility]) Overview Signed 01/01/2023 3:09 PM by Juan [...] Last one was in september Or October. 2016.her neurolgist is in [place], and her recent valproic acid levelswere low, so we discussed that she should [...] Zuluaga MD DME: Camacho Titration done @ [facility] 03/08/2012 recommended CPAP @ 11 cm of H2O with humidification and EPR setting of 3. Olecranon bursitis Obesity Numbness of upper extremity Isolation/Infection: No active isolations No active infections Nurse Assessment: Last Vital Signs: BP 110/59 (BP Location: Left arm, Patient Position: Lying) Pulse 80 Temp 36.5C (97.7 F) (Temporal) Resp 16 Ht 5' [...] assistance Toileting Minimal assistance Feeding Minimal assistance Physical Education Department Chair Independent Med Delivery yes Wound Care Documentation [...] Drainage Amount None 01/09/23 0400 Treatments Cleansed 01/03/231999 Primary Dressing Dermabond 01/09/23 0400 Dressing Status [...] Score: @READMISSIONRISKDETAILS@ Discharging to Facility/ Agency Name: [facility] Address: [facility] [facility] Fax: Dialysis Facility (if applicable) Name: Address: Dialysis Schedule: Phone: Fax: Boiler Engineer/Wine Fermenter signature: ICIAN SECTION Prognosis: good Condition at [...] Milian. Patient was admitted on 12/18/22 to [facility] with CP history of CHF, CAD, DM type 2, hyperlipidemia, epilepsy, HTN, RA, LINA, and prior PCI with stent of the left anterior descending artery, a LHC = high grade lesion in the circumflexartery. Patient also had an echo done which showed mild (1+) tricuspid valve insufficiency. She consented and was taken to the operating room on 01/01/[address] Rose. Postoperative course was uncomplicated and she was discharged to SNF on POD#10. PHYSICIAN SIGNATURE: * Attachments The following attachments cannot be sent through Care Everywhere. * Heart Healthy Diet (Swedish) documented in this [facility]09-08-2023 Note* Care Coordination - Good Jang - 01/09/2023 8:15 AM EDT [facility]. Referral placed to [facility]- [facility] via fax # [phone] to Shauna in Admissions Await review and response regarding ability to accept. TCC notified. [facility] [id number] Note* Care Coordination - Good Jang - 01/08/2023 3:06 PM EDT Referral placed to [facility]. Await review and response regarding ability to accept. TCC notified. [facility] HospitalIfmajb75-13-1613 Note* Care Coordination - Delores Mullins RN - 01/08/2023 2:36 PM EDT Spoke with patient at bedside, alyssa Holloway over the phone to discuss therapy recommendations. Agreeable to [facility] and 2nd choice [facility]. [facility] [id number] Note* Care Coordination - Delores Mullins RN - 01/07/2023 2:18 PM EDT Images from the original note were not included. Care Management Progress Note Patient remains on HLU s/p CABG x 3 POD # 6. PT continuing to recommend IPR vs SNF. [facility] unable to accept patient, FOC, patient and niece declining SNF, discharge plan is home with [facility]. TCC to follow for updated therapy recs [...] Mullins RN 01/02/2023 2:07 PM 01/06/2023 Shruthi Weaver, NET DEVELOPER PROGRAMMER - AROMATHERAPIST 01/01/2023 11:16 AM 01/06/2023 Azam Rsoe MD 01/01/2023 5:45 AM Length of Stay (Days): 6 GMLOS: 5.9 [facility] [id number] NoteReceived referral and reviewed chart. Phase II Cardiac Rehab Referral discussed with Lacy Alvarado. Patient prefers cardiac rehab at [facility]. Given information on cardiac rehab at preferred location. [facility]09-05-2023 Note* Care Coordination - Delores Mullins RN - 01/06/2023 1:01 PM EDT [facility] unable to accept patient, too functional. Updated patient at bedside and alyssa Holloway (HCPOA) over the phone. Declined SNF at this time, would like to plan discharge home with HHC including PT/OT/SN/NURSE WOUND if possible. Will updated PEDROZA PACC, CTS GANG KNIFE FISH CHOPPER aware. [facility] [id number] Consult note* Faiza Thomas - 01/06/2023 11:33 AM EDTAssociated Order(s): IP CONSULT TO CARDIAC REHAB Received referral and reviewed chart. Phase II Cardiac Rehab Referral discussed with Lacy Alvarado. [facility] Given information on cardiac rehab at preferred location. [facility] [id number] Consult note* Faiza Thomas - 01/06/2023 11:33 AM EDTAssociated Order(s): IP CONSULT TO CARDIAC REHAB Received referral and reviewed chart. Phase II Cardiac Rehab Referral discussed with Lacy Alvarado. Patient prefers cardiac rehab at [facility]. Given information on cardiac rehab at preferred location. * Talita Haque RD - 01/02/2023 12:30 PM EDTAssociated Order(s): IP CONSULT TO DIETITIAN Nutrition Assessment [...] heart healthy diet handout at bedside with [facility] RD phone number. 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 Pt underwent CABG x 4 01/01. Extubated with diet ordered. Pt is sleeping in chair at time of RD visit-did not disturb. Provided heart healthy diet handout with [facility] RD phone number for reference at bedside. Estimated Daily Nutrient Needs: Energy Requirements Based On: Kcal/kg Weight Used for Energy Requirements: [place] (25-30 kcal/kg) Weight for Energy Calculation (kg): 50 kg Total Energy Requirements (kcals/day): 2434-6678 Weight Used for Protein Requirements: [place] (1.2-1.5 g/kg) Weight in Kg Used for [...] BID nitroprusside, 0.1-3 mcg/kg/min, Last Rate: Stopped (01/02/23714) BMP: Recent Labs 01/01/23 1010 01/02/23 0002 [...] Ordered Anthropometric Measures: Height: 157.5 cm (5' 2) Current Body Weight: 78.8 kg (173 lb 11.6 oz[facility] Admission Body Weight: 78 kg (172 lb) (no method) [place] Body Weight (lbs) (Calculated): 110 lbs [place] Body Weight (Kg) (Calculated): 50 kg % [place] Body Weight (Calculated): 157.9 % BMI (kg/m2) [...] to determine Talita Haque RD, LD Contact: *[phone] or via Maptia chat * Kaye Sanchez, NET DEVELOPER PROGRAMMER - AROMATHERAPIST - 01/01/2023 11:40 AM EDTAssociated Order(s): IP CONSULT TO ENDOCRINOLOGY Department of Internal Medicine Division of Endocrinology, Diabetes, & Metabolism Endocrinology Note Patient Name: Lacy Alvarado : 1950 AGE: 72 y.o. Room[facility] A Admission Date: 01/01/2023 Visit Date: 01/01/2023 Reason for Endocrine Consult: post op heart Provider/Team Requesting Consult: cts PCP: MAYDA GARCIA Outpt Bottle Booth Attendant: No ASSESSMENT: Cad s/p Cabgx4 Dm2 with hyperglycemia without long-term insulin Stress hyperglycemia Chf Hld/htn PLAN: Continue [...] kg (172 lb) Height: 1.575 m (5' 2) 1.575 m (5' 2) Physical Exam Vitals and nursing note reviewed. [...] results, and Other Clinical Notes at the timeof today's encounter. Labs: No components found for: [...] found for: CHOLHDLRATIO No results found for: OUQF75DDM No results found for: TSH, R3AJHDC, G3YUDAQ, THYROIDAB Radiology reportsas per the Radiologist Radiology: ECG 12 lead Result Date: 01/01/2023 Sinus rhythm History/Other: Past Medical History: Past Medical History: Diagnosis Date CHF (congestive heart failure) ([facility]/HCC) (HCC) Diabetes mellitus (HCC) GERD (gastroesophageal reflux disease) Hyperlipidemia Hypertension RA (rheumatoid arthritis) (HCC) Seizure (HCC) last seizure 5 months ago gannapoleon murray 08/24 Seizures (HCC) Sleep apnea Past [...] plan of care (with modifications noted if any),and discussed the management plan. I have performed [...] RRR, chest incision intact, good pulses, clear breathsounds, no rales, +chest tubes, abdomen soft, nno [...] DM; can also consider other agents such asSGLT-2i or GLP-1a. - will follow Total time 25 minutes which include review of records, counseling, management, and coordination of care as documented in note. * Mynor Villareal APRN - AROMATHERAPIST - 01/01/2023 8:58 AM EDT Images from the original note were not included. [facility] Group: Critical Care Consultation Note Date: 01/01/23 PATIENT NAME: Lacy Alvarado : 1950 (72 y.o.) Reason for Consult: Critical Care & Vent Management HPI: Lacy Alvarado is a 72 y.o. female was referred to us by Dr. Bhanu Milian. Patient was admitted on12/18/22 to [facility] with CP history of CHF, CAD, DM [...] history of CHF (congestive heart failure) (CMS/HCC) ([facility]), Diabetes mellitus (HCC), GERD (gastroesophageal reflux [...] Patient not taking: Reported on 01/01/2023 12/24/22 GORDO Felix CNP traMADol (Ultram) 50 MG tablet Take 50 [...] (Temporal) Resp 16 Ht 1.575 m (5' 2) Wt 78 kg (172 lb) SpO2 100% [...] PM EDT I have personally performed a bwvk-uu-lspt diagnostic evaluation on this patient on date of rujvmvs54/31/23 . History, labs, imaging studies, and electronic medical record have been reviewed by me. This notedocumented by the []boiler house inspector [x]SONYA reflects my history, exam, and medical [...] CTs No Pacer wires documented in this [facility]09-05-2023 NoteCare Management Progress Note Patient remains on HLU [...] Mullins RN 01/02/2023 2:07 PM 01/06/2023 Shruthi Weaver APRN - AROMATHERAPIST 01/01/2023 11:16 AM 01/06/2023 Azam Rose MD 01/01/2023 5:45 AM Length of Stay (Days): 5 GMLOS: 5.9 [facility]09-05-2023 Note* Care Coordination - Delores Mullins RN - 01/06/2023 8:10 AM EDT Images from the original note were not [...] Mullins RN 01/02/2023 2:07 PM 01/06/2023 Shruthi Weaver, NET DEVELOPER PROGRAMMER - SERENA 01/01/2023 11:16 AM 01/06/2023 Azam Rose MD 01/01/2023 5:45 AM Length of Stay (Days): 5 GMLOS: 5.9 [facility] [id number] NoteCardiothoracic Surgery/CCM Progress Note PATIENT NAME: Lacy Alvarado DATE: 01/04/23 HPI: Lacy Alvarado is a 72 y.o. female was referred to us by Dr. Bhanu Milian. Patient was admitted on 12/18/22 to [facility] with CP history of CHF, CAD, DM [...] stent) CHF T2DM HLD Epilepsy HTN RA LNIA Post operative Pulm Management: Normal Post-operative Course [...] Nomal (SIS 01/01/23) Blood Conservation: Transfused post-op. Paper Tester: [facility]09-02-2023 NoteCardiothoracic Surgery/CCM Progress Note PATIENT NAME: Lacy Alvarado DATE: 01/03/23 HPI: Lacy Alvarado is a 72 y.o. female was referred to us by Dr. Bhanu Milian. Patient was admitted on 12/18/22 to [facility] with CP history of CHF, CAD, DM [...] Nomal (SIS 01/01/23) Blood Conservation: Transfused post-op. Paper Tester: [facility]09-02-2023 Plan of care note* Care Plan - Arlette Mckeon RN - 01/03/2023 4:08 AM EDT Problem: Knowledge Deficit Goal: Patient/family/caregiver demonstrates understanding of disease process, treatment plan, medications, and discharge instructions Outcome: Progressing Problem: Potential for Compromised Skin Integrity Goal: Skin Integrity is Maintained or Improved Outcome: Progressing Goal: Nutritional status is improving Outcome: Progressing Problem: Urinary Incontinence Goal: Perineal skin integrity is maintained or improved Outcome: Progressing Problem: Problem Interventions Goal: Assess Nutritional Intake Outcome: Progressing [facility] [id number] Note* Home Care - Lisa Yo RN - 01/02/2023 3:39 PM EDT Mica Spreader following case for Discharge Needs. [facility] HospitalOmjgcx41-01-1213 NoteNutrition Assessment Type and Reason for Visit: Initial, [...] heart healthy diet handout at bedside with [facility] RD phone number. 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 Pt underwent CABG x 4 01/01. Extubated with diet ordered. Pt is sleeping in chair at time of RD visit-did not disturb. Provided heart healthy diet handout with [facility] RD phone number for reference at bedside. Estimated Daily Nutrient Needs: Energy Requirements Based On: Kcal/kg Weight Used for Energy Requirements: [place] (25-30 kcal/kg) Weight for Energy Calculation (kg): 50 kg Total Energy Requirements (kcals/day): 4325-8791 Weight Used for Protein Requirements: [place] (1.2-1.5 g/kg) Weight in Kg Used for [...] Ordered Anthropometric Measures: Height: 157.5 cm (5' 2) Current Body Weight: 78.8 kg (173 lb 11.6 oz) (01/02 [facility]) Admission Body Weight: 78 kg (172 lb) (no method) [place] Body Weight (lbs) (Calculated): 110 lbs [place] Body Weight (Kg) (Calculated): 50 kg % [place] Body Weight (Calculated): 157.9 % BMI (kg/m2) [...] to determine Talita Haque RD, LD Contact: *[phone] or via Collabera [id number] Note* Care Coordination - Delores Mullins RN - 01/02/2023 2:07 PM EDT Care Managment Initial Assessment Date: 01/02/2023 Patient Name: Lacy Alvarado : 1950 Patient Information Source of Information: Patient Cognition/Language: WFL - Within Functional Limits Permission given to speak with patient signs sales representative/caregiver as indicated: Yes Confirmation of Payer with patient/family: Yes Payer Name: [place] Medicare : No Confirmation of Primary Care [...] Living Prescription Coverage: Yes Pharmacy Used: [facility] [place] Medication Management: Independent Transportation/Shopping: Assistance Provider [...] Referral for: Additional Information: Patient admitted to [facility] s/p CABG x POD # 1. Spoke with patient at bedside, introduced self and role. Patient from home with grandson, is independent, no longer drives, has PCP and prescription coverage, will have a ride home and will task SHAHto follow for home care needs. Delores Mullins RN [facility] [id number] Consult note* Talita Haque, RD - 01/02/2023 12:30 PM EDTAssociated Order(s): IP CONSULT TO DIETITIAN Nutrition Assessment [...] heart healthy diet handout at bedside with [facility] RD phone number. 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 Pt underwent CABG x 4 01/01. Extubated with diet ordered. Pt is sleeping in chair at time of RD visit-did not disturb. Provided heart healthy diet handout with [facility] RD phone number for reference at bedside. Estimated Daily Nutrient Needs: Energy Requirements Based On: Kcal/kg Weight Used for Energy Requirements: [place] (25-30 kcal/kg) Weight for Energy Calculation (kg): 50 kg Total Energy Requirements (kcals/day): 9696-8978 Weight Used for Protein Requirements: [place] (1.2-1.5 g/kg) Weight in Kg Used for [...] Ordered Anthropometric Measures: Height: 157.5 cm (5' 2) Current Body Weight: 78.8 kg (173 lb 11.6 oz) (01/02 bedscale) Admission Body Weight: 78 kg (172 lb) (no method) [place] Body Weight (lbs) (Calculated): 110 lbs [place] Body Weight (Kg) (Calculated): 50 kg % [place] Body Weight (Calculated): 157.9 % BMI (kg/m2) [...] to determine Talita Haque RD, LD Contact: *[phone] or via Maptia chat T [facility] HospitalQvryfw97-97-1362 NotePatient: Lacy Alvarado Procedure Summary Date: 01/01/23 Room / Location: [facility] OR [address] [place] [address] Operating Room Anesthesia Start: 657 Anesthesia Stop: 1129 Procedures: CABG AND SIS (Chest) Echocardiography transesophageal real-time Diagnosis: Atherosclerotic heart disease of [place] coronary artery without angina pectoris (Atherosclerotic heart disease of [place] coronary artery without angina pectoris [I25.10]) Surgeons: Azam Rose MD Responsible Provider: Cruzito Frost MD [...] discharged once all PACU criteria has been met.[facility]08-31-2023 NotePatient: Lacy Alvarado Procedure Summary Date: 01/01/23 Room / Location: [address] Operating Room Anesthesia Start: 657 Anesthesia Stop: 1129 Procedures: CABG AND SIS (Chest) Echocardiography transesophageal real-time Diagnosis: Atherosclerotic heart disease of [place] coronary artery without angina pectoris (Atherosclerotic heart disease of [place] coronary artery without angina pectoris [I25.10]) Surgeons: Azam Rose MD Responsible Provider: Cruzito Frost MD [...] factors for PONV (4556F) Patient received at leaset 2 prophylactic Rx PONV anti-emtic agents of [...] start time until discharged from PACU (G2148) MIPS #404 Anesthesiology Smoking Abstinence The patient is [...] Allowed opportunity for questions and acknowledgement of understanding.[facility]08-31-2023 NoteArterial Line: Date/Time: 01/01/2023 7:05 AM An arterial line was placed Procedure performed using ultrasound guidance - Image permanently retained with wire or catheter in vein.in the Procedural for the following indication(s): continuous blood pressure monitoring and blood sampling needed. A 20 gauge (size), 1 and 3/4 inch (length), Arrow (type) catheter was placed, into the Left secured by Tegaderm and tape. Staffing Performed: VICE PRESIDENT OF RECRUITING Anesthesiologist: Cruzito Frost MD Resident/VICE PRESIDENT OF RECRUITING: Azar Rojo APRN - BOB Performed by: Azar Rojo APRN - BOB Authorized by: Azar Rojo APRN - [facility] [id number] Consult note* Kaye Sanchez, GORDO - AROMATHERAPIST - 01/01/2023 11:40 AM EDTAssociated Order(s): IP CONSULT TO ENDOCRINOLOGY Department of Internal Medicine Division of Endocrinology, Diabetes, & Metabolism Endocrinology Note Patient Name: Lacy Alvarado : 1950 AGE: 72 y.o. Room[facility]: [facility] A Admission Date: 01/01/2023 Visit Date: 01/01/2023 Reason for Endocrine Consult: post op heart Provider/Team Requesting Consult: cts PCP: MAYDA GARCIA Outpt Bottle Booth Attendant: No ASSESSMENT: Cad s/p Cabgx4 Dm2 with hyperglycemia without long-term insulin Stress hyperglycemia Chf Hld/htn PLAN: Continue [...] kg (172 lb) Height: 1.575 m (5' 2) 1.575 m (5' 2) Physical Exam Vitals and nursing note reviewed. [...] results, and Other Clinical Notes at the timeof today's encounter. Labs: No components found for: [...] found for: CHOLHDLRATIO No results found for: LRMG25XPW No results found for: TSH, B6PVOPO, W1APQWT, THYROIDAB Radiology reportsas per the Radiologist Radiology: [...] plan of care (with modifications noted if any),and discussed the management plan. I have performed [...] RRR, chest incision intact, good pulses, clear breathsounds, no rales, +chest tubes, abdomen soft, nno [...] DM; can also consider other agents such asSGLT-2i or GLP-1a. - will follow Total time 25 minutes which include review of records, counseling, management, and coordination of care as documented in note. Heap Phone: [phone] 218-741908-31-2023 NoteAirway Date/Time: 01/01/2023 7:08 AM Urgency: scheduled Airway not difficult General Information and Staff Patient location during procedure: Procedural Anesthesiologist: Cruzito Frost MD Resident/VICE PRESIDENT OF RECRUITING: GORDO Kenney CRNA Performed: VICE PRESIDENT OF RECRUITING Performed by: GORDO Kenney CRNA Authorized by: GORDO Kenney CRNA Indications and [...] attempts: BVM Number of other approaches attempted: [address] [place], [place] [id number] Note Central Venous Line: Date/Time: 01/01/2023 7:26 [...] Performed by: GORDO Kenney CRNA Authorized by: Azar Rojo APRN - [facility] Consult note* GORDO Bennett CNP - 01/01/2023 8:58 AM EDT Images from the original note were not included. [facility]: Critical Care Consultation Note Date: 01/01/23 PATIENT NAME: Lacy Alvarado : 1950 (72 y.o.) Reason for Consult: Critical Care & Vent Management HPI: Lacy Alvarado is a 72 y.o. female was referred to us by Dr. Bhanu Milian. Patient was admitted on12/18/22 to [facility] with CP history of CHF, CAD, DM [...] history of CHF (congestive heart failure) (CMS/HCC) ([facility]), Diabetes mellitus ([facility]), GERD (gastroesophageal reflux disease), Hyperlipidemia, Hypertension, RA (rheumatoid arthritis) ([facility]), Seizure ([facility]), Seizures ([facility]), and Sleep apnea. Past Surgical History: [...] Patient not taking: Reported on 01/01/2023 12/24/22 Kassy Tabares APRN - SERENA traMADol (Ultram) 50 [...] (Temporal) Resp 16 Ht 1.575 m (5' 2) Wt 78 kg (172 lb) SpO2 100% BMI 31.46 kg/m Intake/Output Summary (Last 24 hours) at 01/01/2023 0835 Last data filed at 01/01/2023 0713 Gross [...] PM EDT I have personally performed a jles-lb-ancw diagnostic evaluation on this patient on date of gazhbsv48/31/23 . History, labs, imaging studies, and electronic medical record have been reviewed by me. This notedocumented by the []boiler house inspector [x]SONYA reflects my history, exam, and medical [...] air leak in CTs No Pacer wires Heap Phone: 1(149) 190-928708-31-2023 Note* Op Note - Azam Rose MD - 01/01/2023 6:57 AM EDT Cardiothoracic Surgery Operative Report Pre-operative Diagnosis: Multivessel coronary artery disease Post-operative Diagnosis: Multivessel coronary artery disease Procedure: Coronary revascularization x4: Left internal mammary artery grafted to the left anteriordescending coronary artery, reverse saphenous vein graft grafted to the obtuse marginal coronary artery, reverse saphenous vein graft graft to the first diagonal coronary artery, reverse saphenous vein graft grafted to the posterior descending branch of the right coronary artery; endoscopic vein harvesting left lower extremity (calf to thigh); intraoperative transesophageal echocardiography Surgeon: Azam Rose MD Resort Manager(s): [] Thomas Silva [x] Rg Marie [x] [...] in the event of an allergy) within 1hour of surgical incision (two hours if receiving [...] Milian. Patient was admitted on 12/18/22 to [facility] with . She had a history of CHF, CAD, [...] an echo done which showed mild (1+) tricuspidvalve insufficiency. The risk benefits and alternatives were discussed in detail with the patient and she agreed to proceed with surgical revascularization. The culprit lesion appeared to be the complex lesion within the circumflex coronary artery. DESCRIPTION OF PROCEDURE: Patient was taken to the operative suite in a fasting state and general endotracheal anesthesia wasinstituted. Monitoring lines were inserted by the department of anesthesia and intraoperative esophageal echocardiography was performed. No valvular pathology was seen. The details will follow under s eparate report. After the patient was positioned prepped and draped in an appropriate timeout conducted, the left lower extremity was incised and the greater saphenous vein was procured from the calf to the thigh using an endoscopic vein harvesting technique. The vein was prepared in the usual fashion and the incisions were closed in usual manner. They have. Simultaneously, median sternotomy was employed and theleft internal mammary artery was harvested in a [...] graft grafted to the PDA of the rightcoronary artery. This anastomosis proceeded smoothly and there was good flow. The target was adequate. Next a reverse saphenous vein graft was grafted to the large OM vessel. This was a good target and the anastomosis proceeded smoothly and there was good flow. Next a reverse saphenous vein graft was grafted to the relatively small first diagonal. This anastomosis proceeded smoothly and there wasgood flow. Last the left internal mammary artery [...] with closure. The sternum was reapproximated with jhppro-dp-prryg wires and the overlying tissues were closed in multiple layers. The patient was transported to the intensive care unit in serious but stable condition. [facility] [id number] NotePatient: Lacy Alvarado Procedure Information Date/Time: 01/01/23729 Procedures: CABG AND SIS (Chest) Echocardiography transesophageal real-time Location: [facility] Operating Room Surgeons: Azam Rose MD Past Medical History: Past Medical History: No date: CHF (congestive heart failure) (CMS/HCC) (HCC) No date: Diabetes mellitus (HCC) No date: GERD (gastroesophageal reflux disease) No date: Hyperlipidemia No date: Hypertension No date: RA (rheumatoid arthritis) ([facility]) No date: Seizure ([facility]) Comment: last seizure 5 months ago gand mal 08/24 No date: Seizures ([facility]) No date: Sleep apnea Past Surgical [...] results found for this or any previous visit.[facility] 12-29-2022 NoteComprehensive Pre Surgical History and Physical ? Name: Lacy Alvarado : 1950 (Age-72 y.o.) Date of Service: Pt seen/examined on 12/29/2022 Procedure Information Date/Time: 01/01/23 0730 Procedures: CABG AND SIS (Chest) Echocardiography transesophageal real-time Location: [facility] Operating Room Surgeons: Azam Rose MD Chief Complaint: Heart vessels are [...] cardiopulmonary testing. 1) Atherosclerotic heart disease of [place] coronary artery without angina pectoris [I25.10] Pre-op diagnosis: Atherosclerotic heart disease of [place] coronary artery without angina pectoris [I25.10] - [...] who we are asked to see/evaluate by [place] [address] for pre-operative evaluation prior to . CABG AND SIS (Chest) [53916 CPT(R)] Echocardiography transesophageal real-time [40966 CPT(R)] Anesthesia type: General Reason for Visit: [...] Milian. Patient was admitted on 12/18/22 to [facility] with CP. Per notes, patient has a [...] office note 12/23/2022 ? Denies history of RI, TIA, CVA Past Medical History: Past Medical History: No date: CHF (congestive heart failure) ([facility]/HCC) ([facility]) No date: Diabetes mellitus ([facility]) No date: GERD (gastroesophageal reflux disease) No date: Hyperlipidemia No date: Hypertension No date: RA (rheumatoid arthritis) ([facility]) No date: Seizure ([facility]) Comment: last seizure 5 months ago nathaniel mal 08/24 No date: Seizures ([facility]) No date: Sleep apnea Past Surgical [...] before surgery. Do not swallow. 12/24/22 12/24/22 Kassy Tabares APRN - SERENA clopidogrel (Plavix) 75 MG tablet Take 75 mg (more content not included)...[facility]08-28-2023 NoteComprehensive Pre Surgical History and Physical ? Name: Lacy Alvarado : 1950 (Age-72 y.o.) Date of Service: Pt seen/examined on 12/29/2022 Procedure Information Date/Time: 01/01/23 0730 Procedures: CABG AND SIS (Chest) Echocardiography transesophageal real-time Location: [facility] Operating Room Surgeons: Azam Rose MD Chief Complaint: Heart vessels are [...] cardiopulmonary testing. 1) Atherosclerotic heart disease of [place] coronary artery without angina pectoris [I25.10] Pre-op diagnosis: Atherosclerotic heart disease of [place] coronary artery without angina pectoris [I25.10] - [...] who we are asked to see/evaluate by [place] [address] for pre-operative evaluation prior to . CABG AND SIS (Chest) [03609 CPT(R)] Echocardiography transesophageal real-time [17199 CPT(R)] Anesthesia type: General Reason for Visit: [...] Milian. Patient was admitted on 12/18/22 to [facility] with CP. Per notes, patient has a [...] office note 12/23/2022 ? Denies history of RI, TIA, CVA Past Medical History: Past Medical History: No date: CHF (congestive heart failure) (CMS/HCC) ([facility]) No date: Diabetes mellitus (HCC) No date: GERD (gastroesophageal reflux disease) No date: Hyperlipidemia No date: Hypertension No date: RA (rheumatoid arthritis) ([facility]) No date: Seizure ([facility]) Comment: last seizure 5 months ago nathaniel murray 08/24 No date: Seizures ([facility]) No date: Sleep apnea Past Surgical [...] tablet Take 75 mg (more content not included)...[facility] [id number] History and physical note* GORDO Larkin CNP - 12/29/2022 2:00 PM EDT Images from the original note were not included. Comprehensive Pre Surgical History and Physical ? Name: Lacy Alvarado : 1950 (Age-72 y.o.) Date of Service: Pt seen/examined on 12/29/2022 Procedure Information Date/Time: 01/01/23 0730 Procedures: CABG AND SIS (Chest) Echocardiography transesophageal real-time Location: [facility] Operating Room Surgeons: Azam Rose MD Chief Complaint: Heart vessels are [...] cardiopulmonary testing. 1) Atherosclerotic heart disease of [place] coronary artery without angina pectoris [I25.10] Pre-op diagnosis: Atherosclerotic heart disease of [place] coronary artery without angina pectoris [I25.10] - [...] who we are asked to see/evaluate by [facility] [address] for pre-operative evaluation prior to. CABG AND SIS (Chest) [40284 CPT(R)] Echocardiography transesophageal real-time [47515 CPT(R)] Anesthesia type: General Reason for Visit: [...] Milian. Patient was admitted on 12/18/22 to [facility] with CP. Per notes, patient has a history of CHF, CAD, DM type 2, hyperlipidemia, epilepsy, HTN, RA, LINA, and prior PCI with stent of theleft anterior descending artery. . Patient underwent a left heart catheterization that demonstrated: a high grade lesion in the circumflex artery. Patient also had an echo done which showed mild (1+)tricuspid valve insufficiency. Dr Rose office note 12/23/2022 ? Denies history of RI, TIA, CVA Past Medical History: Past Medical History: No date: CHF (congestive heart failure) ([facility]/HCC) ([facility]) No date: Diabetes mellitus ([facility]) No date: GERD (gastroesophageal reflux disease) No date: Hyperlipidemia No date: Hypertension No date: RA (rheumatoid arthritis) ([facility]) No date: Seizure ([facility]) Comment: last seizure 5 months ago nathaniel trevor 08/24 No date: Seizures ([facility]) No date: Sleep apnea Past Surgical [...] or throat Once for 1 dose. Swish for30 seconds and spit out the night before surgery. Do not swallow. 12/24/22 12/24/22 GORDO Felix CNP clopidogrel (Plavix) 75 MG tablet Take 75 mg by mouth daily. Historical Provider, divalproex (Depakote) 500 MG EC tablet Take 1,000 mg by mouth 2 times daily. Do not crush, chew, orsplit. Historical Provider, DULoxetine (Cymbalta) [address] [...] Larkin CNP Date: 12/29/2022 at 2:58 PM [employer] Work Phone: 1(499) 679-469608-28-2023 History and physical note* GORDO Larkin CNP - 12/29/2022 2:00 PM EDT Images from the original note were not included. Comprehensive Pre Surgical History and Physical ? Name: Lacy Alvarado : 1950 (Age-72 y.o.) Date of Service: Pt seen/examined on 12/29/2022 Procedure Information Date/Time: 01/01/23 0730 Procedures: CABG AND SIS (Chest) Echocardiography transesophageal real-time Location: [facility] OR [address] [place] [address] Operating Room Surgeons: Azam Rose MD Chief Complaint: Heart vessels are [...] cardiopulmonary testing. 1) Atherosclerotic heart disease of [place] coronary artery without angina pectoris [I25.10] Pre-op diagnosis: Atherosclerotic heart disease of [place] coronary artery without angina pectoris [I25.10] - [...] who we are asked to see/evaluate by [place] [address] for pre-operative evaluation prior to. CABG AND SIS (Chest) [84011 CPT(R)] Echocardiography transesophageal real-time [24674 CPT(R)] Anesthesia type: General Reason for Visit: [...] Milian. Patient was admitted on 12/18/22 to [facility] with CP. Per notes, patient has a history of CHF, CAD, DM type 2, hyperlipidemia, epilepsy, HTN, RA, LINA, and prior PCI with stent of theleft anterior descending artery. . Patient underwent a left heart catheterization that demonstrated: a high grade lesion in the circumflex artery. Patient also had an echo done which showed mild (1+)tricuspid valve insufficiency. Dr Rose office note 12/23/2022 ? Denies history of RI, TIA, CVA Past Medical History: Past Medical History: No date: CHF (congestive heart failure) ([facility]/HCC) ([facility]) No date: Diabetes mellitus ([facility]) No date: GERD (gastroesophageal reflux disease) No date: Hyperlipidemia No date: Hypertension No date: RA (rheumatoid arthritis) ([facility]) No date: Seizure ([facility]) Comment: last seizure 5 months ago nathaniel mal 08/24 No date: Seizures ([facility]) No date: Sleep apnea Past Surgical [...] or throat Once for 1 dose. Swish for30 seconds and spit out the night before surgery. Do not swallow. 12/24/22 12/24/22 GORDO Felix CNP clopidogrel (Plavix) 75 MG tablet Take 75 mg by mouth daily. Historical Provider, divalproex (Depakote) 500 MG EC tablet Take 1,000 mg by mouth 2 times daily. Do not crush, chew, orsplit. Historical Provider, DULoxetine (Cymbalta) [address] [...] 12/29/2022 at 2:58 PM documented in this [facility]08-23-2023 Telephone encounter Note* Telephone Encounter - GORDO Felix CNP - 12/24/2022 11:44 AM EDT Surg proc orders placed, medications e-scribed - talked to patient, answered all questions. [facility] [id number] Miscellaneous Notes* Telephone Encounter - GORDO Felix CNP - 12/24/2022 11:44 AM EDT Surg proc orders placed, medications e-scribed - talked to patient, answered all questions. * Telephone Encounter - Katarzyna Rivera - 12/23/2022 11:08 AM EDT Prep for Procedure Order Request: 12/23/22 Surgeon: Dr. Rose Surgery/Procedure: CABG & SIS Plan Admit: Yes PAT Appointment: 12/26/22 at 1:00 PM Date if yes: Date of Surgery/Procedure: 01/01/23 at 7:30 AM Medication needed held: [] None [] Other: Medication needed prescribed: [] None [x] Nasal ointment and mouth rinse [] Other: documented in this [facility]08-22-2023 NotePrep for Procedure Order Request: 12/23/22 Surgeon: Dr. Rose Surgery/Procedure: CABG & SIS Plan Admit: Yes PAT Appointment: 12/26/22 at 1:00 PM Date if yes: Date of Surgery/Procedure: 01/01/23 at 7:30 AM Medication needed held: [] None [] Other: Medication needed prescribed: [] None [x] Nasal ointment and mouth rinse [] Other: [facility]08-22-2023 Telephone encounter Note* Telephone Encounter - Katarzyna Rivera - 12/23/2022 11:08 AM EDT Prep for Procedure Order Request: 12/23/22 Surgeon: Dr. Rose Surgery/Procedure: CABG & SIS Plan Admit: Yes PAT Appointment: 12/26/22 at 1:00 PM Date if yes: Date of Surgery/Procedure: 01/01/23 at 7:30 AM Medication needed held: [] None [] Other: Medication needed prescribed: [] None [x] Nasal ointment and mouth rinse [] Other: [facility] [id number] History of Present illness Narrative* Azam Rose MD - 12/23/2022 10:30 AM EDT Images from the original note were not included. [facility]ARD[facility]AC[facility] SURGERY [address] [facility] [address] [facility] [address] Dept: [phone] Dept Loc: [phone] Visit type: New Reason for Visit: Multivessel [...] Milian. Patient was admitted on 12/18/22 to [facility] with CP. Per notes, patient has a history of CHF, CAD, DM type 2, hyperlipidemia, epilepsy, HTN, RA, LINA, and prior PCI with stent of theleft anterior descending artery. . Patient underwent a left heart catheterization that demonstrated: a high grade lesion in the circumflex artery. Patient also had an echo done which showed mild (1+)tricuspid valve insufficiency. Patient is here today for [...] the proposed treatment or procedure have been discussed.The risks and benefits of the proposed treatment [...] This note may have been dictated using [email or web address] Practice Edition 2.6 and/or [employer] Voice Recognition Feature. The document was proofread, however unrecognized voice recognition solar manufacturer's representative errors may be present. documented in this [facility]08-22-2023 History of Present illness Narrative* Azam Rose MD - 12/23/2022 10:30 AM EDT Images from the original note were not included. [facility] CARDIOVASCULAR & THORACIC SURGERY [address] [facility] [address] Dept: [phone] Dept Loc: [phone] Visit type: New Reason for Visit: Multivessel [...] Milian. Patient was admitted on 12/18/22 to [facility] with CP. Per notes, patient has a history of CHF, CAD, DM type 2, hyperlipidemia, epilepsy, HTN, RA, LINA, and prior PCI with stent of theleft anterior descending artery. . Patient underwent a left heart catheterization that demonstrated: a high grade lesion in the circumflex artery. Patient also had an echo done which showed mild (1+)tricuspid valve insufficiency. Patient is here today for [...] the proposed treatment or procedure have been discussed.The risks and benefits of the proposed treatment [...] This note may have been dictated using [employer] Medical Practice Edition 2.6 and/or [employer] Voice Recognition Feature. The document was proofread, however unrecognized voice recognition solar manufacturer's representative errors may be present. documented in this [facility]08-18-2023 Discharge summary Author Edwin Kaplan [facility] December 19, 2022 3:41pm Note Date/Time December 19, 2022 3: 38pm [facility] Medical Records Department [address] [place] [address] Instructions for Home/Discharge Instructions 12/19/22 1537 MR#: [id number] Acct: [id number] Name: LACY ALVARADO Rep #:[id number] : 1950 72 From: Edwin martin DO PCP: Dr. Mayda Garcia MD Status:A DM DELFIN Discharge Instructions Diet Discharge Diet: Carb Control Diet Activity Discharge Activity: Return to Normal Activity Weight Bearing Status: Full weight bearing Follow Up Care Test Results: Test results from this visit will be discussed in further detail at your follow- up appointment, if applicable. Pending Tests Upon Discharge: Echo report Discharge Plan Admission Admit Date/Time: 12/18/22 10:48 Primary Reason for Your Visit: Chest pain Attending Provider: Edwin Kaplan Primary Care Provider: Mayda Garcia Consulting Providers: Bhanu Milian Instructions Additional Instructions / Restrictions: Please start taking isosorbide mononitrate 60 mg daily as instructed by cardiology. Take all other other home medications as prescribed. Follow-up with the cardiothoracic surgery team at [facility] as discussed. Discharge Orders/Prescriptions Prescriptions: New isosorbide mononitrate 60 mg Tablet Extended Release 24 Hr 60 mg PO DAILY 30 Days Qty: 30 0RF Continued multivitamin Tablet 1 tab PO DAILY calcium citrate 200 mg (950 mg) tablet 200 mg PO BID aspirin [Adult Low Dose Aspirin] 81 mg tablet,delayed release (DR/EC) 81 mg PO DAILY (DME) lancets [BD Ultra Fine Lancets] 33 gauge misc See Rx Instructions .Route Rx Instructions: As directed divalproex [Depakote] 500 mg tablet,delayed release (DR/EC) 1,000 mg PO .COMPLEX Rx Instructions: Take 2 tablets orally every evening (along with 250 mg tablet for a total evening dose of 1250 mg) and 2 tablet every morning. divalproex 250 mg tablet,delayed release (DR/EC) 250 mg PO DAILY Qty: 90 1RF Rx Instructions: Take with 1000 mg Divalproex for a total evening dose of 1250 mg daily. pantoprazole 40 mg tablet,delayed release (DR/EC) 40 mg PO DAILY Qty: 90 0RF Rx Instructions: Take 30 minutes before breakfast (DME) blood-glucose meter [True Metrix Air Glucose Meter] Kit See Rx Instructions .ROUTE .MEDSUPPLY Qty: 1 0RF Rx Instructions: As directed (DME) nash dejesusard See Rx Instructions .ROUTE .MEDSUPPLY Qty: 1 0RF Rx Instructions: As directed, Length of time: 5 years (DME) True Metrix Glucose Test Strip Strip See Rx Instructions .ROUTE .MEDSUPPLY Qty: 100 3RF Rx Instructions: check twice a day and as needed atorvastatin 80 mg tablet 80 mg PO QHS Qty: 90 3RF losartan 50 mg tablet See Rx Instructions .ROUTE .COMPLEX Qty: 180 3RF Dose Instruction: TAKE 1 TABLET BY MOUTH TWICE DAILY Rx Instructions: TAKE 1 TABLET BY MOUTH TWICE DAILY clopidogrel 75 mg tablet See Rx Instructions .ROUTE .COMPLEX Qty: 90 3RF Dose Instruction: TAKE 1 TABLET BY MOUTH EVERY DAY Rx Instructions: TAKE 1 TABLET BY MOUTH EVERY DAY hydroxychloroquine 200 mg tablet See Rx Instructions .ROUTE .COMPLEX Qty: 90 3RF Dose Instruction: TAKE 1 TABLET BY MOUTH TWICE DAILY WITH MEALS Rx Instructions: TAKE 1 TABLET BY MOUTH TWICE DAILY WITH MEALS carvedilol 12.5 mg tablet See Rx Instructions .ROUTE .COMPLEX Qty: 180 1RF Dose Instruction: TAKE 1 TABLET BY MOUTH TWICE DAILY Rx Instructions: TAKE 1 TABLET BY MOUTH TWICE DAILY Januvia 100 mg tablet See Rx Instructions .ROUTE .COMPLEX Qty: 90 1RF Dose Instruction: TAKE 1 TABLET BY MOUTH DAILY Rx Instructions: TAKE 1 TABLET BY MOUTH DAILY Prolia 60 mg/mL syringe 60 mg subcut [id number] Qty: 1 2RF Discontinued isosorbide mononitrate 30 mg tablet extended release 24 hr See Rx Instructions .ROUTE .COMPLEX Qty: 90 3RF Dose Instruction: TAKE 1 TABLET BY MOUTH EVERY DAY Rx Instructions: TAKE 1 TABLET BY MOUTH EVERY DAY Referrals / Follow Up: Mayda Garcia MD [Primary Care Provider] - Disposition Disposition (needs filled in before D/C Order can be placed): Home, Self Care 12/19/22 1541<Electronically signed by Edwin Kaplan DO>Edwin Kaplan DO CC: Dr. Mayda Garcia MD; Dr. Bhanu Milian MD ~ Signed [facility] Work Phone: 1(877) 950-284508-18-2023 Procedure [facility] 12-19-2022 Consult note Author Bhanu Milian [facility] December 19, 2022 4:13pm Note Date/Time December 19, 2022 8: 32am [facility] Medical Records Department [address] [place] [address] Consultation - Cardiology 12/19/22829 MR#: [id number] Acct: [id number] Name: LACY ALVARADO Rep #:[id number] : 1950 72 From: Karen LÓPEZ PA PCP: Dr. Mayda Garcia MD Status:A DM DELFIN Location: [place] [address] <Statement entered by Bhanu Milian MD - 12/19/22 16:13> Pt seen & evaluated w/SONYA. I personally interviewed & exam the pt. I was involved in all aspects of pt's orders, interpretation of results & treatment Assessment & Plan Assessment/Plan (1) Chest pain: (2) History of coronary artery stent placement: (3) Essential (primary) hypertension: (4) Hyperlipidemia: QUALIFIERS: Hyperlipidemia type: pure hypercholesterolemia Qualified Code(s): E78.00 - Pure hypercholesterolemia, unspecified; E78.0 - Pure hypercholesterolemia PLAN: Plan * Pt underwent a cardiac cath, she has a High-grade lesion involving a calcified ostium of the circumflex artery the stent in the LAD is patent and she had a lesion in the diagonal as well as the mid in-stent restenosis of around 50% and a calcified eccentric lesion in the RCA,It was felt that this should be evaluated by CT surgery because of the significant lesion at the ostium of the circumflex. She was referred to Dr. Rose at [facility]. She will follow-up with them on an outpatient basis. * Would recommend maximizing her medications by increasing her isosorbide to 60 mg a day. She will continue with her aspirin, high intensity atorvastatin, carvedilol, clopidogrel, losartan. * We will follow-up with patient closely in office. HPI Consult Data Date of Consult: 12/19/22 HPI Narrative HPI Narrative: LACY ALVARADO, is a 72 F who presented to [facility] ER on 12/18/22 with Chest pain, she felt short of breath was nauseated had pressure in her chest. This discomfort was similar to what she had when she had her previous stenting.Her troponins were negative patient was admitted to PCU for observation. Since her chest discomfort was similar to what it was prior to her previous stenting it was felt that we should pursue a diagnostic heart catheterization. This is scheduled for later on today. Patient was last seen in our office in January 2022. She does have a history of hypertension, hyperlipidemia, obesity, coronary artery disease with angioplasty and stenting to her mid LAD in 2018. Heart catheterization in 2019 demonstrated disease in her distal LAD of 60%, circumflex 50% stenosis, RCA 60% stenosis. [facility] Medical History Abdominal pain Acute back pain Anemia Arthritis Atherosclerotic heart disease of [place] coronary artery without angina pectoris Cardiology follow-up encounter Cervical radiculopathy Chronic diastolic CHF (congestive heart failure) Colon cancer screening Compression fracture of lumbar spine, non-traumatic Congestive heart failure (CHF) Conversion disorder Cough CPAP (continuous positive airway pressure) dependence Diabetes Diabetes mellitus type 2 in nonobese Diabetes type 2, controlled Dysuria Dysuria Essential (primary) hypertension Foreign body in stomach GERD (gastroesophageal reflux disease) Health care maintenance Hives Hyperglycemia due to type 2 diabetes mellitus Hyperlipidemia Left ankle pain Left shoulder pain Memory changes Non-smoker Non-toxic goiter Obesity Obstructive sleep apnea Osteoarthritis Osteoporosis Personal history of colonic polyps Rheumatoid arthritis RIGHT FOOT HEEL SPUR Right groin pain Right hip pain Right shoulder pain Routine health maintenance Seasonal allergies Seizure disorder Shortness of breath on exertion Sleep apnea Therapeutic drug monitoring Type 2 diabetes mellitus Urinary frequency Urinary frequency Wears glasses Home Medications multivitamin 1 tab PO DAILY vitamin 05/20/19 [History Last Taken 12/16/22] blood-glucose meter (True Metrix Air Glucose Meter kit) #1 ea 02/03/20 [Rx Last Taken Unknown] calcium citrate 200 mg (950 mg) tablet 200 mg PO BID supplement 05/21/20 [History Last Taken 12/16/22] disability placard #1 ea 06/27/20 [Rx Last Taken Unknown] aspirin 81 mg tablet,delayed release (Adult Low Dose Aspirin) 81 mg PO DAILY heart 08/13/20 [History Last Taken 12/11/22] blood sugar diagnostic (True Metrix Glucose Test Strip) #100 ea 07/17/21 [Rx Last Taken Unknown] lancets 33 gauge (BD Ultra Fine Lancets) 04/02/22 [History Last Taken Unknown] atorvastatin 80 mg tablet 80 mg PO QHS cholesterol #90 tabs 06/11/22 [Rx Last Taken 12/16/22] clopidogrel 75 mg tablet See Rx Instructions .Route .COMPLEX #90 TABLETS 08/20/22 [Rx Last Taken 12/16/22] isosorbide mononitrate 30 mg tablet,extended release 24 hr See Rx Instructions .Route .COMPLEX #90 TABLETS 08/20/22 [Rx Last Taken 12/16/22] losartan 50 mg tablet See Rx Instructions .Route .COMPLEX #180 TABLETS 08/20/22 [Rx Last Taken 12/16/22] hydroxychloroquine 200 mg tablet See Rx Instructions .Route .COMPLEX #90 tabs 08/25/22 [Rx Last Taken 12/16/22] divalproex 250 mg tablet,delayed release 250 mg PO DAILY #90 tabs 10/02/22 [Rx Last Taken 12/16/22] divalproex 500 mg tablet,delayed release (Depakote) 1,000 mg PO .COMPLEX 10/03/22 [History Last Taken 12/16/22] carvedilol 12.5 mg tablet See Rx Instructions .Route .COMPLEX #180 tabs 12/08/22[Rx Last Taken 12/16/22] sitagliptin phosphate 100 mg tablet (Januvia) See Rx Instructions .Route .COMPLEX #90 tabs 12/08/22 [Rx Last Taken 12/16/22] denosumab 60 mg/mL subcutaneous syringe (Prolia) 60 mg subcut [id number] #1 mL 12/11/22 [Rx Last Taken Unknown] pantoprazole 40 mg tablet,delayed release 40 mg PO DAILY #90 tabs 12/11/22 [Rx Last Taken 12/16/22] Allergy/AdvReac Type Severity Reaction Status Date / Time prednisone AdvReac Severe Hives Verified 12/18/22 05:23 Family History Grandmother Alcoholism Cancer Arthritis Mother Alcoholism Diabetes blood clots Hypertension Grandfather Heart disease Sister Thyroid disorder Other Breast cancer Cervical cancer Colon cancer Surgical History H/O: hysterectomy History of cardiac catheterization History of carpal tunnel surgery History of section History of coronary artery stent placement (03/22/18) History of left heart catheterization (09/20/18) Social History Smoking Status: Never smoker second hand exposure: No alcohol intake: current alcohol intake frequency: holidays/special occasions only substance use type: does not use what type of physical activity do you participate in: none ROS Constitutional Constitutional: Denies change in weight, chills, fatigue, frequent falls, headache(s) or lethargy Eyes Eyes: Denies acute decrease in peripheral vision, blurry vision or change in vision ENT HEENT: Denies dizziness, dry mouth, epistaxis, headache(s), tinnitus or vertigo Cardiovascular Cardiovascular: Reports chest pain at rest, chest pain with activity, dyspnea atrest and dyspnea on exertion; Denies claudication, edema, irregular heart rhythm, lightheadedness, orthopnea, orthostatic symptoms, palpitations or pedal edema Respiratory/Chest Respiratory/Chest: Denies cough, dyspnea, dyspnea on exertion, tachypnea or wheezing Gastrointestinal Gastrointestinal: Denies abdominal pain, bloating, coffee ground emesis, diarrhea, heartburn, hematemesis, hematochezia, melena or nausea Genitourinary Genitourinary: Denies hematuria Musculoskeletal Musculoskeletal: Denies myalgias, numbness or tingling Neurologic Neurologic: Denies abnormal gait, abnormal speech, memory loss, paresthesias or weakness Physical Exam Const alert, oriented x3, no apparent distress and healthy appearing HEENT normocephalic, head/scalp atraumatic, hearing grossly normal bilaterally, external ears normal, external nose normal and moist oral mucous membranes Eyes PERRL, EOMs intact bilaterally, conjunctivae normal and no scleral icterus Neck no lymphadenopathy, supple and no JVD Cardio regular rate, regular rhythm, S1 normal heart sound, S2 normal heart sound, no murmurs, no rub, no gallops, no clicks, no JVD and peripheral pulses 2+ throughout GI normal to inspection, nondistended, normoactive bowel sounds, soft to palpation,non-tender and non-distended Extremity normal to inspection, normal capillary refill, no clubbing, cyanosis or edema and no pedal edema Neuro oriented x3, CN's II-XII intact bilaterally, moves all extremities and no focal motor deficits Psych cooperative and affect normal Risk Stratification Risk Stratification Applicable: Yes Age >/= 65: Yes >/= 3 CAD Risk Factors (HTN, HLD, DM, family hx of CAD, or current smoker): Yes Aspirin Use in the Past 7 Days: Yes Severe Angina (>/= episodes in 24 hours): Yes EKG ST Changes >/= 0.5mm: No Positive Cardiac Marker: Yes DONYA Risk Stratification Score: 5 DONYA % Risk: 25% Risk Objective Data Vital Signs: Vital Signs Temp Pulse Resp BP Pulse Ox O2 Del Method 97.6 F L 78 18 135/70 H 98 Room Air 12/19/22 06:29 12/19/22 06:29 12/19/22 06:29 12/19/22 06:29 12/19/22 06:29 12/19/22 07:50 Oxygen Delivery Method Room Air Weight: 171 lb 11.841 oz Body Mass Index (BMI) 31.4 Intake & Output: Intake and Output for Last 24 Hours 12/17/22 12/18/22 12/19/22 23:59 23:59 23:59 Intake Total 706.3 / 706.3 Balance 706.3 / 706.3 Lab / Micro Data 12/18/22 05:50 12/18/22 05:50 Labs: Laboratory Results - last 24 hr 12/18/22 09:30: PT 12.8, INR 1.0, APTT 27.4, Troponin I High Sens 5 12/18/22 11:50: Troponin I High Sens 5 12/19/22 06:26: POC Glucose 101 Cardiology Labs/Tests 12/18/22 09:30: PT 12.8, INR 1.0, APTT 27.4 Radiography Diagnostic Testing: CORONARY ANGIOGRAPHY 12/2022: 1. Left main calcified distally, with the distal left main around 20-30% The left main coronary artery bifurcating to left anterior descending and left circumflex The left anterior descending is a large vessel reach all the way to the apex In the mid LAD after the second diagonal branch there is a in-stent restenosis which is around 50% Ist diagonal which is moderate in size has a mid eccentric atherosclerosis of at least around 60 to 70%. The LAD itself is a large vessel reach all the way to the apex with a DONYA-3 flow in the LAD and patency of the long segment of LAD stent is noted. The left circumflex artery calcified ostium of around 80% large OM1 and OM 2 branches RCA is calcified proximally with the mid RCA eccentric lesion of around 50 to 60% RCA is dominant giving branches to RPDA and posterolateral branch 12/19/22 1425 <Electronically signed by Karen LÓPEZ> Cosigner Signature (if applicable): 12/19/22 1613 <Electronically signed by Bhanu Milian MD> CC: Dr. Mayda Garcia MD; Dr. Bhanu Milian MD~ Signed [facility] Work Phone: [phone] 996-652508-17-2023 History and physical note Author Edwin [facility] December 18, 2022 4:38pm Note Date/Time December 18, 2022 4: 36pm [facility] Medical Records Department [address] [place] [id number] H&P Exam - Hospitalist 12/18/22 1627 MR#: [id number] Acct: [id number] Name: LACY ALVARADO Rep #:[id number] 2 : 1950 72 From: Edwin Mo hugh SINGH PCP: Dr. Mayda Garcia MD Status:A DM DELFIN Location: [place] [address]- HPI - General General Date of Admission: 12/18/22 Date of Service: 12/18/22 Chief Complaint: Chest pain HPI Narrative Lacy Alvarado is a 72-year-old female with history significant for CAD s/p stenting on Plavix (follows w/ Dr. Johnson), hypertension, seizures, foy-pwrygip-jovnprccn type 2 diabetes and GERD who presented to the [facility] ED on 12/18 with chest pain. Patient seen at bedside. She states that the chest pain started yesterday evening. States she tried to go tobed, but then woke up around 1 AM and still had some discomfort. She again wokeup at 5 AM with numbness and tingling in her left hand, along with shortness of breath and nausea. She had a pressure in the left side of her chest that would not go away. States she had similar discomfort in the past when she required stents. She then came to the hospital for further evaluation. Labs on admission were fairly benign. Troponin was negative. EKG reportedly showed no acute changes, however I was unable to view this. Chest x-ray was nonacute. [facility] Medical History Abdominal pain Acute back pain Anemia Arthritis Atherosclerotic heart disease of [place] coronary artery without angina pectoris Cardiology follow-up encounter Cervical radiculopathy Chronic diastolic CHF (congestive heart failure) Colon cancer screening Compression fracture of lumbar spine, non-traumatic Congestive heart failure (CHF) Conversion disorder Cough CPAP (continuous positive airway pressure) dependence Diabetes Diabetes mellitus type 2 in nonobese Diabetes type 2, controlled Dysuria Dysuria Essential (primary) hypertension Foreign body in stomach GERD (gastroesophageal reflux disease) Health care maintenance Hives Hyperglycemia due to type 2 diabetes mellitus Hyperlipidemia Left ankle pain Left shoulder pain Memory changes Non-smoker Non-toxic goiter Obesity Obstructive sleep apnea Osteoarthritis Osteoporosis Personal history of colonic polyps Rheumatoid arthritis RIGHT FOOT HEEL SPUR Right groin pain Right hip pain Right shoulder pain Routine health maintenance Seasonal allergies Seizure disorder Shortness of breath on exertion Sleep apnea Therapeutic drug monitoring Type 2 diabetes mellitus Urinary frequency Urinary frequency Wears glasses Home Medications multivitamin 1 tab PO DAILY vitamin 05/20/19 [History Last Taken 12/31/21] blood-glucose meter (True Metrix Air Glucose Meter kit) #1 ea 02/03/20 [Rx Last Taken Unknown] calcium citrate 200 mg (950 mg) tablet 200 mg PO BID supplement 05/21/20 [History Last Taken 12/31/21] disability placard #1 ea 06/27/20 [Rx Last Taken Unknown] aspirin 81 mg tablet,delayed release (Adult Low Dose Aspirin) 81 mg PO DAILY heart 08/13/20 [History Last Taken 12/31/21] blood sugar diagnostic (True Metrix Glucose Test Strip) #100 ea 07/17/21 [Rx Last Taken Unknown] lancets 33 gauge (BD Ultra Fine Lancets) 04/02/22 [History Last Taken Unknown] atorvastatin 80 mg tablet 80 mg PO QHS cholesterol #90 tabs 06/11/22 [Rx Last Taken Unknown] clopidogrel 75 mg tablet See Rx Instructions .Route .COMPLEX #90 TABLETS 08/20/22 [Rx Last Taken Unknown] isosorbide mononitrate 30 mg tablet,extended release 24 hr See Rx Instructions .Route .COMPLEX #90 TABLETS 08/20/22 [Rx Last Taken Unknown] losartan 50 mg tablet See Rx Instructions .Route .COMPLEX #180 TABLETS 08/20/22 [Rx Last Taken Unknown] hydroxychloroquine 200 mg tablet See Rx Instructions .Route .COMPLEX #90 tabs 08/25/22 [Rx Last Taken Unknown] divalproex 250 mg tablet,delayed release 250 mg PO DAILY #90 tabs 10/02/22 [Rx Last Taken Unknown] divalproex 500 mg tablet,delayed release (Depakote) 1,000 mg PO .COMPLEX 10/03/22 [History Last Taken Unknown] carvedilol 12.5 mg tablet See Rx Instructions .Route .COMPLEX #180 tabs 12/08/22[Rx Last Taken Unknown] sitagliptin phosphate 100 mg tablet (Januvia) See Rx Instructions .Route .COMPLEX #90 tabs 12/08/22 [Rx Last Taken Unknown] denosumab 60 mg/mL subcutaneous syringe (Prolia) 60 mg subcut [id number] #1 mL 12/11/22 [Rx Last Taken Unknown] pantoprazole 40 mg tablet,delayed release 40 mg PO DAILY #90 tabs 12/11/22 [Rx Last Taken Unknown] Allergy/AdvReac Type Severity Reaction Status Date / Time prednisone AdvReac Severe Hives Verified 12/18/22 05:23 Family History Grandmother Alcoholism Cancer Arthritis Mother Alcoholism Diabetes blood clots Hypertension Grandfather Heart disease Sister Thyroid disorder Other Breast cancer Cervical cancer Colon cancer Surgical History H/O: hysterectomy History of cardiac catheterization History of carpal tunnel surgery History of section History of coronary artery stent placement (03/22/18) History of left heart catheterization (09/20/18) Social History Smoking Status: Never smoker second hand exposure: No alcohol intake: current alcohol intake frequency: holidays/special occasions only substance use type: does not use what type of physical activity do you participate in: none ROS Constitutional Constitutional: Denies chills, fatigue or fever(s) Eyes Eyes: Denies change in vision Cardiovascular Cardiovascular: Reports chest pain; Denies dyspnea on exertion, edema, lightheadedness or palpitations Respiratory/Chest Respiratory/Chest: Denies cough Gastrointestinal Gastrointestinal: Reports dyspepsia and nausea; Denies abdominal pain, constipation, diarrhea or vomiting Musculoskeletal Musculoskeletal: Denies arthralgias or myalgias Vital Signs Vital Signs Vital Signs: 12/18/22 05:23 12/18/22 05:56 12/18/22 06:00 Temperature 96.6 F L Temperature Source Temporal Pulse Rate 94 85 90 Pulse Strength Respiratory Rate 16 Respiratory Effort Respiratory Depth Respiratory Pattern Blood Pressure 159/69 H 141/68 H 137/78 H Blood Pressure Mean 99 Blood Pressure Source Blood Pressure Position Blood Pressure Location Pulse Ox 98 Oxygen Delivery Method Room Air 12/18/22 06:05 12/18/22 06:09 12/18/22 06:43 Temperature Temperature Source Pulse Rate 92 78 Pulse Strength Respiratory Rate 14 Respiratory Effort Respiratory Depth Respiratory Pattern Blood Pressure 129/71 H 118/69 Blood Pressure Mean 85 Blood Pressure Source Blood Pressure Position Blood Pressure Location Pulse Ox 97 Oxygen Delivery Method Room Air Room Air 12/18/22 08:04 12/18/22 07:00 12/18/22 08:00 Temperature Temperature Source Pulse Rate 83 Pulse Strength Respiratory Rate 18 16 Respiratory Effort Respiratory Depth Respiratory Pattern Blood Pressure 131/72 H Blood Pressure Mean Blood Pressure Source Blood Pressure Position Blood Pressure Location Pulse Ox Oxygen Delivery Method 12/18/22 09:00 12/18/22 10:00 12/18/22 09:15 Temperature 98.1 F Temperature Source Temporal Pulse Rate 74 Pulse Strength Respiratory Rate 18 18 18 Respiratory Effort Respiratory Depth Respiratory Pattern Blood Pressure 148/72 H Blood Pressure Mean 97 Blood Pressure Source Blood Pressure Position Blood Pressure Location Pulse Ox 95 Oxygen Delivery Method Room Air 12/18/22 10:30 12/18/22 10:55 12/18/22 10:30 Temperature 97.8 F Temperature Source Oral Pulse Rate 87 Pulse Strength Normal (2+) Respiratory Rate 18 Respiratory Effort Normal Non-Labored Respiratory Depth Normal Respiratory Pattern Normal Blood Pressure 160/83 H Blood Pressure Mean 108 Blood Pressure Source Monitor Blood Pressure Position Semi-Fowlers Blood Pressure Location Right Arm Pulse Ox 100 Oxygen Delivery Method Room Air Room Air 12/18/22 14:08 Temperature Temperature Source Pulse Rate Pulse Strength Respiratory Rate Respiratory Effort Respiratory Depth Respiratory Pattern Blood Pressure Blood Pressure Mean Blood Pressure Source Blood Pressure Position Blood Pressure Location Pulse Ox 96 Oxygen Delivery Method Room Air Weight Weight: 77.9 kg Body Mass Index (BMI) 31.4 Physical Exam Const alert and oriented x3 Constitutional Narrative: Pleasant elderly female, obese, sitting comfortably in bed, conversing normally,no acute distress. General Appearance: cooperative and comfortable HEENT normocephalic, head/scalp atraumatic, hearing grossly normal bilaterally, nasal mucous membranes and turbinates normal and moist oral mucous membranes Eyes PERRL, EOMs intact bilaterally and conjunctivae normal Neck full ROM, no lymphadenopathy and supple Lymph Lymphatic: no lymphadenopathy noted Chest inspection of chest normal Resp normal respiratory effort, normal air movement, no use of accessory muscles and clear to auscultation bilaterally Cardio regular rate, regular rhythm, no murmurs and peripheral pulses 2+ throughout GI normal to inspection, nondistended, normoactive bowel sounds, soft to palpation,non-tender and non-distended Back/Spine normal ROM Extremity normal to inspection and full ROM Extremity Narrative: Mild bilateral lower extremity nonpitting edema up to mid david noted. Skin no rashes or lesions noted Psych mental status grossly normal Results Lab / Micro Data 12/18/22 05:50 12/18/22 05:50 Labs: Laboratory Results - last 24 hr 12/18/22 05:50: WBC 4.9, RBC 3.32 L, Hgb 10.8 L, Hct 32.9 L, MCV 99.1 H, MCH 32.5 H, MCHC 32.8, RDW Std Deviation 50.8 H, RDW Coeff of [place] 13.9, Plt Count 183, MPV 10.7, Immature Gran % (Auto) 0.200, Neut % (Auto) 43.9 L, Lymph % (Auto) 45.0 H, Hayes % (Auto) 8.1, Eos % (Auto) 2.4, Baso % (Auto) 0.4, Absolute Neuts (auto) 2.2, Absolute Lymphs (auto) 2.22, Nucleated RBC % 0, D-Dimer Quant (PE/DVT) 0.31, Sodium 141, Potassium 4.0, Chloride 108 H, Carbon Dioxide 29.0, Anion Gap 4 L, BUN 25 H, Creatinine 0.90, Estim Creat Clear Calc 71.34, Est GFR (MDRD) Af Amer 79, Est GFR (MDRD) Non-Af 65, BUN/Creatinine Ratio 27.6 H, Glucose 144 H, Calcium 8.5, Troponin I High Sens 6 12/18/22 09:30: PT 12.8, INR 1.0, APTT 27.4, Troponin I High Sens 5 12/18/22 11:50: Troponin I High Sens 5 Radiology Impression Chest X-Ray 12/18/22 05:36 IMPRESSION: No radiographic evidence of acute cardiopulmonary disease. Electronically Signed: Flor Flynn MD at 6:39 EDT , Assessment & Plan Assessment/Plan (1) Chest pain: PLAN: Plan Lacy Alvarado is a 72-year-old female with history significant for CAD s/p stenting on Plavix (follows w/ Dr. Johnson), hypertension, seizures, [id number]-ilavltjyk type 2 diabetes and GERD who presented to the [facility] ED on 12/18 with chest pain. 1. Chest pain in setting of known history of CAD status post stenting on Plavix Unclear if this chest pain is cardiac in nature, but have high enough suspicion given her history and presenting symptoms to admit for further evaluation. Troponins negative, EKG reportedly normal. Vital stable. Physical exam unremarkable. ? Patient given 325 mg of aspirin in the ED and started on a heparin drip. Cardiology consulted and planning for left heart cath with possible interventiontomorrow morning. N.p.o. at midnight. Continue home Plavix. Continue home atorvastatin. 2. Hypertension ? Holding home carvedilol, isosorbide mononitrate and losartan at this time. Irena plan to restart after left heart cath tomorrow as able. 3. Seizure disorder ? Continue home divalproex. 4. Xen-jsdkbvi-sispyprnk type 2 diabetes ? Home medication of Sitagliptin. Will monitor blood sugars here, can add on sliding scale insulin as needed. DVT prophylaxis: Heparin drip CODE STATUS: Full code, verified Expected disposition: Home, tomorrow Total clinical time spent by myself addressing the patient's medical issues, reviewing all the data, and collaborating with patient's care team: 55 minutes. Charges/Coding Visit Charges Inpatient E&M: 21736 Init Hosp L2 12/18/22 1638 <Electronically signed by Edwin Kaplan DO> Cosigner Signature (if applicable): CC: Dr. Edwin Kaplan DO; Dr. Mayda Garcia MD~ Signed [facility] Work Phone: 1(358) 991-112908-17-2023 Discharge summary Author Jossue Boyd [facility] December 18, 2022 8:57am Note Date/Time December 18, 2022 5: 38am [facility] Medical Records Department [address] [place] [address] Emergency Department Summary 12/18/22 MR#: [id number] Acct: [id number] Name: LACY ALVARADO Rep #:[id number] 2 : 1950 72 From: Turner Armendariz DO PCP: Dr. Mayda Garcia MD Status:R EG ER Location: ED HPI History of Present Illness Chief Complaint: Chest Pain Detail of Chief Complaint: Chest pain Informant: patient Narrative Narrative: Patient presents with chest pain that started last evening. Patient states she did not pay any attention to it and thought it would go away. She tried to go to bed but then woke up around 1 AM and still had some of the discomfort. Patient woke up around 5:00 in had numbness and tingling in her left hand. She felt short of breath and nauseated. She describes a pressure in her chest. Patient had similar discomfort in the past when she required stents. She deniesrecent travel or surgery. No history of PE or DVT. [facility] Medical History (Updated 12/18/22 @ 06:[address] Remus Ungur, DO) Abdominal pain Acute back pain Anemia Arthritis Atherosclerotic heart disease of [place] coronary artery without angina pectoris Cardiology follow-up encounter Cervical radiculopathy Chronic diastolic CHF (congestive heart failure) Colon cancer screening Compression fracture of lumbar spine, non-traumatic Congestive heart failure (CHF) Conversion disorder Cough CPAP (continuous positive airway pressure) dependence Diabetes Diabetes mellitus type 2 in nonobese Diabetes type 2, controlled Dysuria Dysuria Essential (primary) hypertension Foreign body in stomach GERD (gastroesophageal reflux disease) Health care maintenance Hives Hyperglycemia due to type 2 diabetes mellitus Hyperlipidemia Left ankle pain Left shoulder pain Memory changes Non-smoker Non-toxic goiter Obesity Obstructive sleep apnea Osteoarthritis Osteoporosis Personal history of colonic polyps Rheumatoid arthritis RIGHT FOOT HEEL SPUR Right groin pain Right hip pain Right shoulder pain Routine health maintenance Seasonal allergies Seizure disorder Shortness of breath on exertion Sleep apnea Therapeutic drug monitoring Type 2 diabetes mellitus Urinary frequency Urinary frequency Wears glasses Home Medications multivitamin 1 tab PO DAILY vitamin 05/20/19 [History Last Taken 12/31/21] blood-glucose meter (True Metrix Air Glucose Meter kit) #1 ea 02/03/20 [Rx Last Taken Unknown] calcium citrate 200 mg (950 mg) tablet 200 mg PO BID supplement 05/21/20 [History Last Taken 12/31/21] disability placard #1 ea 06/27/20 [Rx Last Taken Unknown] aspirin 81 mg tablet,delayed release (Adult Low Dose Aspirin) 81 mg PO DAILY heart 08/13/20 [History Last Taken 12/31/21] blood sugar diagnostic (True Metrix Glucose Test Strip) #100 ea 07/17/21 [Rx Last Taken Unknown] lancets 33 gauge (BD Ultra Fine Lancets) 04/02/22 [History Last Taken Unknown] atorvastatin 80 mg tablet 80 mg PO QHS cholesterol #90 tabs 06/11/22 [Rx Last Taken Unknown] clopidogrel 75 mg tablet See Rx Instructions .Route .COMPLEX #90 TABLETS 08/20/22 [Rx Last Taken Unknown] isosorbide mononitrate 30 mg tablet,extended release 24 hr See Rx Instructions .Route .COMPLEX #90 TABLETS 08/20/22 [Rx Last Taken Unknown] losartan 50 mg tablet See Rx Instructions .Route .COMPLEX #180 TABLETS 08/20/22 [Rx Last Taken Unknown] hydroxychloroquine 200 mg tablet See Rx Instructions .Route .COMPLEX #90 tabs 08/25/22 [Rx Last Taken Unknown] divalproex 250 mg tablet,delayed release 250 mg PO DAILY #90 tabs 10/02/22 [Rx Last Taken Unknown] divalproex 500 mg tablet,delayed release (Depakote) 1,000 mg PO .COMPLEX 10/03/22 [History Last Taken Unknown] carvedilol 12.5 mg tablet See Rx Instructions .Route .COMPLEX #180 tabs 12/08/22[Rx Last Taken Unknown] sitagliptin phosphate 100 mg tablet (Januvia) See Rx Instructions .Route .COMPLEX #90 tabs 12/08/22 [Rx Last Taken Unknown] denosumab 60 mg/mL subcutaneous syringe (Prolia) 60 mg subcut [id number] #1 mL 12/11/22 [Rx Last Taken Unknown] pantoprazole 40 mg tablet,delayed release 40 mg PO DAILY #90 tabs 12/11/22 [Rx Last Taken Unknown] Allergy/AdvReac Type Severity Reaction Status Date / Time prednisone AdvReac Severe Hives Verified 12/18/22 05:23 Family History Grandmother Alcoholism Cancer Arthritis Mother Alcoholism Diabetes blood clots Hypertension Grandfather Heart disease Sister Thyroid disorder Other Breast cancer Cervical cancer Colon cancer Surgical History H/O: hysterectomy History of cardiac catheterization History of carpal tunnel surgery History of section History of coronary artery stent placement (03/22/18) History of left heart catheterization (09/20/18) Social History Smoking Status: Never smoker second hand exposure: No alcohol intake: current alcohol intake frequency: holidays/special occasions only substance use type: does not use what type of physical activity do you participate in: none ROS ROS ED Review of Systems ROS Unobtainable: other Constitutional Constitutional ED: Reports lethargy; Denies chills, fever(s), sweats or weight loss Eyes Eyes: Denies blurry vision, change in vision or diplopia ENT ENT ED: Denies rhinorrhea or sore throat Cardiovascular Cardiovascular: Reports chest pain; Denies orthopnea or racing heartbeat Respiratory/Chest Respiratory/Chest: Reports dyspnea; Denies cough, dyspnea on exertion, orthopneaor sputum Gastrointestinal Gastrointestinal: Denies abdominal pain, diarrhea, nausea or vomiting Genitourinary Genitourinary ED: Denies dysuria, hematuria or urinary frequency Musculoskeletal Musculoskeletal: Denies arthralgias, back pain, myalgias or neck pain Integumentary Denies abscess, Abrasions or rash Neurologic Neurologic: Denies headache(s) or weakness Psychiatric Psychiatric: Denies anxiety, depression or suicidal thoughts Endocrine Endocrinology: Denies polydipsia, polyphagia or polyuria Hematologic/Lymphatic Hematologic/Lymphatic: Denies easy bleeding, easy bruising or lymphadenopathy Allergic/Immunologic Allergic/Immunologic ED: Denies mouth swelling, tongue swelling or urticaria EXAM Physical Exam Const Vital Signs: 12/18/22 05:23 12/18/22 05:56 12/18/22 06:00 Temperature 96.6 F L Temperature Source Temporal Pulse Rate 94 85 90 Respiratory Rate 16 Blood Pressure 159/69 H 141/68 H 137/78 H Blood Pressure Mean 99 Pulse Ox 98 Oxygen Delivery Method Room Air 12/18/22 06:05 12/18/22 06:09 12/18/22 06:43 Temperature Temperature Source Pulse Rate 92 78 Respiratory Rate 14 Blood Pressure 129/71 H 118/69 Blood Pressure Mean 85 Pulse Ox 97 Oxygen Delivery Method Room Air Room Air Positive well nourished and well developed General Appearance ED: well developed and NAD HEENT Reports TM's clear and moist mucous membranes normocephalic and atraumatic; Negative for trauma or tenderness Tympanic Membrane ED: Yes TM's clear Eyes PERRL and EOMs intact bilaterally General Eye ED: Negative for pale conjunctiva or scleral icterus Neck no lymphadenopathy, supple and no JVD General: Negative for tenderness Chest Wall inspection of chest normal and palpation of chest normal Chest: Negative for tenderness Resp normal respiratory effort and clear to auscultation bilaterally Effort and Inspection: Negative for respiratory distress or pain with movement Auscultation: Negative for rhonchi, wheezes or diminished lung sounds Cardio regular rate, regular rhythm, S1 normal heart sound, S2 normal heart sound and no murmurs Peripheral Pulses: pulses 2+ throughout GI normal to inspection, nondistended, normoactive bowel sounds, soft to palpation,non-tender, non-distended and no masses Back/Spine no CVA tenderness and no thoracic nor lumbar tenderness Extremity normal to inspection General Extremety ED: Negative for edema General Extremity: Negative for edema Neuro oriented x3, CN's II-XII intact bilaterally, no sensory deficits noted and gait normal Sensorium / Orientation: awake, alert, oriented to person, oriented to place andoriented to time Motor Exam: strength 5/5 throughout and strength abnormal Psych mental status grossly normal Skin no rashes or lesions noted and no wounds MDM MDM MDM Narrative Medical decision making narrative: Patient presents with chest pain concerning for acute coronary syndrome. She has known history of coronary artery disease. Patient placed on a cardiac rn. EKG obtained on arrival shows sinus rhythm with a ventricular rate of 92 bpm with no acute ST segment changes. CBC with differential was unremarkable. Chemistries and troponin are pending as I am told the chemistry machine is down and they are working to correct and fix the problem. While in the department she did receive aspirin and sublingual nitro which gave her minimal improvement in her pain. She was ordered fentanyl 25 mcg IV. Care of patient turned over to morning physician awaiting chemistries and troponin result. Patient is high risk and suspect will have a high heart score thereforewill likely require admission for further evaluation of her chest pain. Lab Data Labs: Laboratory Results - last 24 hr 12/18/22 05:50 WBC 4.9 RBC 3.32 L Hgb 10.8 L Hct 32.9 L MCV 99.1 H MCH 32.5 H MCHC 32.8 RDW Std Deviation 50.8 H RDW Coeff of [place] 13.9 Plt Count 183 MPV 10.7 Immature Gran % (Auto) 0.200 Neut % (Auto) 43.9 L Lymph % (Auto) 45.0 H Hayes % (Auto) 8.1 Eos % (Auto) 2.4 Baso % (Auto) 0.4 Absolute Neuts (auto) 2.2 Absolute Lymphs (auto) 2.22 Nucleated RBC % 0 D-Dimer Quant (PE/DVT) 0.31 Radiography Diagnostic Testing: Clinical Impression(s) from Imaging Studies Chest X-Ray 12/18/22 05:36 IMPRESSION: No radiographic evidence of acute cardiopulmonary disease. Electronically Signed: Flor Flynn MD at 6:39 EDT Reading Location ID and State: [facility] / [place] Tel , Service support , 1 view chest x-ray obtained interpreted by myself as no evidence of acute infiltrate or pneumothorax or acute process. Official report from radiology pending. EKG Initial EKG: Attestation: I personally reviewed and interpreted this EKG as follows: Comments: Sinus rhythm with a rate of 92 bpm with no acute ST segment changes noted. Discharge Plan Triage Chief Complaint: Chest Pain ED Provider: Turner Armendariz Dx/Rx/DC Orders Clinical Impression: History of hypertension, History of coronary artery disease, Chest pain Prescriptions: No Action multivitamin Tablet 1 tab PO DAILY calcium citrate 200 mg (950 mg) tablet 200 mg PO BID aspirin [Adult Low Dose Aspirin] 81 mg tablet,delayed release (DR/EC) 81 mg PO DAILY (DME) lancets [BD Ultra Fine Lancets] 33 gauge misc See Rx Instructions .Route Rx Instructions: As directed divalproex [Depakote] 500 mg tablet,delayed release (DR/EC) 1,000 mg PO .COMPLEX Rx Instructions: Take 2 tablets orally every evening (along with 250 mg tablet for a total evening dose of 1250 mg) and 2 tablet every morning. divalproex 250 mg tablet,delayed release (DR/EC) 250 mg PO DAILY Qty: 90 1RF Rx Instructions: Take with 1000 mg Divalproex for a total evening dose of 1250 mg daily. pantoprazole 40 mg tablet,delayed release (DR/EC) 40 mg PO DAILY Qty: 90 0RF Rx Instructions: Take 30 minutes before breakfast (DME) blood-glucose meter [True Metrix Air Glucose Meter] Kit See Rx Instructions .ROUTE .MEDSUPPLY Qty: 1 0RF Rx Instructions: As directed (DME) nash placard See Rx Instructions .ROUTE .MEDSUPPLY Qty: 1 0RF Rx Instructions: As directed, Length of time: 5 years (DME) True Metrix Glucose Test Strip Strip See Rx Instructions .ROUTE .MEDSUPPLY Qty: 100 3RF Rx Instructions: check twice a day and as needed atorvastatin 80 mg tablet 80 mg PO QHS Qty: 90 3RF isosorbide mononitrate 30 mg tablet extended release 24 hr See Rx Instructions .ROUTE .COMPLEX Qty: 90 3RF Dose Instruction: TAKE 1 TABLET BY MOUTH EVERY DAY Rx Instructions: TAKE 1 TABLET BY MOUTH EVERY DAY losartan 50 mg tablet See Rx Instructions .ROUTE .COMPLEX Qty: 180 3RF Dose Instruction: TAKE 1 TABLET BY MOUTH TWICE DAILY Rx Instructions: TAKE 1 TABLET BY MOUTH TWICE DAILY clopidogrel 75 mg tablet See Rx Instructions .ROUTE .COMPLEX Qty: 90 3RF Dose Instruction: TAKE 1 TABLET BY MOUTH EVERY DAY Rx Instructions: TAKE 1 TABLET BY MOUTH EVERY DAY hydroxychloroquine 200 mg tablet See Rx Instructions .ROUTE .COMPLEX Qty: 90 3RF Dose Instruction: TAKE 1 TABLET BY MOUTH TWICE DAILY WITH MEALS Rx Instructions: TAKE 1 TABLET BY MOUTH TWICE DAILY WITH MEALS carvedilol 12.5 mg tablet See Rx Instructions .ROUTE .COMPLEX Qty: 180 1RF Dose Instruction: TAKE 1 TABLET BY MOUTH TWICE DAILY Rx Instructions: TAKE 1 TABLET BY MOUTH TWICE DAILY Januvia 100 mg tablet See Rx Instructions .ROUTE .COMPLEX Qty: 90 1RF Dose Instruction: TAKE 1 TABLET BY MOUTH DAILY Rx Instructions: TAKE 1 TABLET BY MOUTH DAILY Prolia 60 mg/mL syringe 60 mg subcut [id number] Qty: 1 2RF Primary Care Provider: Mayda Garcia Referrals: Mayda Garcia MD [Primary Care Provider] - What to do if you have Problems For any increased pain, shortness of breath, bleeding, nausea or vomiting, chestpain, or any unexpected problems, contact your Primary Care Provider. Call [facility] ([phone]) or report to the closest Emergency Room. Call 911 if necessary. 12/18/22 0707 <Electronically signed by Turner Armendariz DO> Cosigner Signature (if applicable): CC: Dr. Mayda Garcia MD ~ Signed ADDENDUM by Dr. Jossue Boyd MD on 12/18/22 at 0857 Patient's troponin came back very low at 4, I reviewed the radiologist's chest x-ray result which was negative for anything acute. Her EKG is unremarkable. She is in a lot of pain. I had nursing try GI cocktail since nitroglycerin really did not seem to help a lot, it did not help her pain at all. I discussedwith Dr. Young who was on-call for cardiology, he agrees with admitting her, request that we start her on heparin in preparation for probable heart catheterization at some point today. I did review her last nuclear stress test which was 11 months ago and negative. Discussed with hospitalist for admission to PCU. 12/18/22 0857<Electronically signed by Jossue Boyd MD> Cosigner Signature (if applicable): cc: Dr. Mayda Garcia MD ~* Signed [facility] Work Phone: [phone] Discharge summary Author Jossue Boyd [facility] December 18, 2022 8:57am Note Date/Time December 18, 2022 5: 38am [facility] Medical Records Department [address] [place] [address] Emergency Department Summary 12/18/22 MR#: [id number] Acct: [id number] Name: LACY ALVARADO Rep #:[id number] 2 : 1950 72 From: Turner Armendariz DO PCP: Dr. Mayda Garcia MD Status:R EG ER Location: ED HPI History of Present Illness Chief Complaint: Chest Pain Detail of Chief Complaint: Chest pain Informant: patient Narrative Narrative: Patient presents with chest pain that started last evening. Patient states she did not pay any attention to it and thought it would go away. She tried to go to bed but then woke up around 1 AM and still had some of the discomfort. Patient woke up around 5:00 in had numbness and tingling in her left hand. She felt short of breath and nauseated. She describes a pressure in her chest. Patient had similar discomfort in the past when she required stents. She deniesrecent travel or surgery. No history of PE or DVT. [facility] Medical History (Updated 12/18/22 @ 06:[address] Turner Armendariz DO) Abdominal pain Acute back pain Anemia Arthritis Atherosclerotic heart disease of [place] coronary artery without angina pectoris Cardiology follow-up encounter Cervical radiculopathy Chronic diastolic CHF (congestive heart failure) Colon cancer screening Compression fracture of lumbar spine, non-traumatic Congestive heart failure (CHF) Conversion disorder Cough CPAP (continuous positive airway pressure) dependence Diabetes Diabetes mellitus type 2 in nonobese Diabetes type 2, controlled Dysuria Dysuria Essential (primary) hypertension Foreign body in stomach GERD (gastroesophageal reflux disease) Health care maintenance Hives Hyperglycemia due to type 2 diabetes mellitus Hyperlipidemia Left ankle pain Left shoulder pain Memory changes Non-smoker Non-toxic goiter Obesity Obstructive sleep apnea Osteoarthritis Osteoporosis Personal history of colonic polyps Rheumatoid arthritis RIGHT FOOT HEEL SPUR Right groin pain Right hip pain Right shoulder pain Routine health maintenance Seasonal allergies Seizure disorder Shortness of breath on exertion Sleep apnea Therapeutic drug monitoring Type 2 diabetes mellitus Urinary frequency Urinary frequency Wears glasses Home Medications multivitamin 1 tab PO DAILY vitamin 05/20/19 [History Last Taken 12/31/21] blood-glucose meter (True Metrix Air Glucose Meter kit) #1 ea 02/03/20 [Rx Last Taken Unknown] calcium citrate 200 mg (950 mg) tablet 200 mg PO BID supplement 05/21/20 [History Last Taken 12/31/21] disability placard #1 ea 06/27/20 [Rx Last Taken Unknown] aspirin 81 mg tablet,delayed release (Adult Low Dose Aspirin) 81 mg PO DAILY heart 08/13/20 [History Last Taken 12/31/21] blood sugar diagnostic (True Metrix Glucose Test Strip) #100 ea 07/17/21 [Rx Last Taken Unknown] lancets 33 gauge (BD Ultra Fine Lancets) 04/02/22 [History Last Taken Unknown] atorvastatin 80 mg tablet 80 mg PO QHS cholesterol #90 tabs 06/11/22 [Rx Last Taken Unknown] clopidogrel 75 mg tablet See Rx Instructions .Route .COMPLEX #90 TABLETS 08/20/22 [Rx Last Taken Unknown] isosorbide mononitrate 30 mg tablet,extended release 24 hr See Rx Instructions .Route .COMPLEX #90 TABLETS 08/20/22 [Rx Last Taken Unknown] losartan 50 mg tablet See Rx Instructions .Route .COMPLEX #180 TABLETS 08/20/22 [Rx Last Taken Unknown] hydroxychloroquine 200 mg tablet See Rx Instructions .Route .COMPLEX #90 tabs 08/25/22 [Rx Last Taken Unknown] divalproex 250 mg tablet,delayed release 250 mg PO DAILY #90 tabs 10/02/22 [Rx Last Taken Unknown] divalproex 500 mg tablet,delayed release (Depakote) 1,000 mg PO .COMPLEX 10/03/22 [History Last Taken Unknown] carvedilol 12.5 mg tablet See Rx Instructions .Route .COMPLEX #180 tabs 12/08/22[Rx Last Taken Unknown] sitagliptin phosphate 100 mg tablet (Januvia) See Rx Instructions .Route .COMPLEX #90 tabs 12/08/22 [Rx Last Taken Unknown] denosumab 60 mg/mL subcutaneous syringe (Prolia) 60 mg subcut [id number] #1 mL 12/11/22 [Rx Last Taken Unknown] pantoprazole 40 mg tablet,delayed release 40 mg PO DAILY #90 tabs 12/11/22 [Rx Last Taken Unknown] Allergy/AdvReac Type Severity Reaction Status Date / Time prednisone AdvReac Severe Hives Verified 12/18/22 05:23 Family History Grandmother Alcoholism Cancer Arthritis Mother Alcoholism Diabetes blood clots Hypertension Grandfather Heart disease Sister Thyroid disorder Other Breast cancer Cervical cancer Colon cancer Surgical History H/O: hysterectomy History of cardiac catheterization History of carpal tunnel surgery History of section History of coronary artery stent placement (03/22/18) History of left heart catheterization (09/20/18) Social History Smoking Status: Never smoker second hand exposure: No alcohol intake: current alcohol intake frequency: holidays/special occasions only substance use type: does not use what type of physical activity do you participate in: none ROS ROS ED Review of Systems ROS Unobtainable: other Constitutional Constitutional ED: Reports lethargy; Denies chills, fever(s), sweats or weight loss Eyes Eyes: Denies blurry vision, change in vision or diplopia ENT ENT ED: Denies rhinorrhea or sore throat Cardiovascular Cardiovascular: Reports chest pain; Denies orthopnea or racing heartbeat Respiratory/Chest Respiratory/Chest: Reports dyspnea; Denies cough, dyspnea on exertion, orthopneaor sputum Gastrointestinal Gastrointestinal: Denies abdominal pain, diarrhea, nausea or vomiting Genitourinary Genitourinary ED: Denies dysuria, hematuria or urinary frequency Musculoskeletal Musculoskeletal: Denies arthralgias, back pain, myalgias or neck pain Integumentary Denies abscess, Abrasions or rash Neurologic Neurologic: Denies headache(s) or weakness Psychiatric Psychiatric: Denies anxiety, depression or suicidal thoughts Endocrine Endocrinology: Denies polydipsia, polyphagia or polyuria Hematologic/Lymphatic Hematologic/Lymphatic: Denies easy bleeding, easy bruising or lymphadenopathy Allergic/Immunologic Allergic/Immunologic ED: Denies mouth swelling, tongue swelling or urticaria EXAM Physical Exam Const Vital Signs: 12/18/22 05:23 12/18/22 05:56 12/18/22 06:00 Temperature 96.6 F L Temperature Source Temporal Pulse Rate 94 85 90 Respiratory Rate 16 Blood Pressure 159/69 H 141/68 H 137/78 H Blood Pressure Mean 99 Pulse Ox 98 Oxygen Delivery Method Room Air 12/18/22 06:05 12/18/22 06:09 12/18/22 06:43 Temperature Temperature Source Pulse Rate 92 78 Respiratory Rate 14 Blood Pressure 129/71 H 118/69 Blood Pressure Mean 85 Pulse Ox 97 Oxygen Delivery Method Room Air Room Air Positive well nourished and well developed General Appearance ED: well developed and NAD HEENT Reports TM's clear and moist mucous membranes normocephalic and atraumatic; Negative for trauma or tenderness Tympanic Membrane ED: Yes TM's clear Eyes PERRL and EOMs intact bilaterally General Eye ED: Negative for pale conjunctiva or scleral icterus Neck no lymphadenopathy, supple and no JVD General: Negative for tenderness Chest Wall inspection of chest normal and palpation of chest normal Chest: Negative for tenderness Resp normal respiratory effort and clear to auscultation bilaterally Effort and Inspection: Negative for respiratory distress or pain with movement Auscultation: Negative for rhonchi, wheezes or diminished lung sounds Cardio regular rate, regular rhythm, S1 normal heart sound, S2 normal heart sound and no murmurs Peripheral Pulses: pulses 2+ throughout GI normal to inspection, nondistended, normoactive bowel sounds, soft to palpation,non-tender, non-distended and no masses Back/Spine no CVA tenderness and no thoracic nor lumbar tenderness Extremity normal to inspection General Extremety ED: Negative for edema General Extremity: Negative for edema Neuro oriented x3, CN's II-XII intact bilaterally, no sensory deficits noted and gait normal Sensorium / Orientation: awake, alert, oriented to person, oriented to place andoriented to time Motor Exam: strength 5/5 throughout and strength abnormal Psych mental status grossly normal Skin no rashes or lesions noted and no wounds MDM MDM MDM Narrative Medical decision making narrative: Patient presents with chest pain concerning for acute coronary syndrome. She has known history of coronary artery disease. Patient placed on a cardiac rn. EKG obtained on arrival shows sinus rhythm with a ventricular rate of 92 bpm with no acute ST segment changes. CBC with differential was unremarkable. Chemistries and troponin are pending as I am told the chemistry machine is down and they are working to correct and fix the problem. While in the department she did receive aspirin and sublingual nitro which gave her minimal improvement in her pain. She was ordered fentanyl 25 mcg IV. Care of patient turned over to morning physician awaiting chemistries and troponin result. Patient is high risk and suspect will have a high heart score thereforewill likely require admission for further evaluation of her chest pain. Lab Data Labs: Laboratory Results - last 24 hr 12/18/22 05:50 WBC 4.9 RBC 3.32 L Hgb 10.8 L Hct 32.9 L MCV 99.1 H MCH 32.5 H MCHC 32.8 RDW Std Deviation 50.8 H RDW Coeff of [place] 13.9 Plt Count 183 MPV 10.7 Immature Gran % (Auto) 0.200 Neut % (Auto) 43.9 L Lymph % (Auto) 45.0 H Hayes % (Auto) 8.1 Eos % (Auto) 2.4 Baso % (Auto) 0.4 Absolute Neuts (auto) 2.2 Absolute Lymphs (auto) 2.22 Nucleated RBC % 0 D-Dimer Quant (PE/DVT) 0.31 Radiography Diagnostic Testing: Clinical Impression(s) from Imaging Studies Chest X-Ray 12/18/22 05:36 IMPRESSION: No radiographic evidence of acute cardiopulmonary disease. Electronically Signed: Flor Flynn MD at 6:39 EDT , 1 view chest x-ray obtained interpreted by myself as no evidence of acute infiltrate or pneumothorax or acute process. Official report from radiology pending. EKG Initial EKG: Attestation: I personally reviewed and interpreted this EKG as follows: Comments: Sinus rhythm with a rate of 92 bpm with no acute ST segment changes noted. Discharge Plan Triage Chief Complaint: Chest Pain ED Provider: Turner Armendariz Dx/Rx/DC Orders Clinical Impression: History of hypertension, History of coronary artery disease, Chest pain Prescriptions: No Action multivitamin Tablet 1 tab PO DAILY calcium citrate 200 mg (950 mg) tablet 200 mg PO BID aspirin [Adult Low Dose Aspirin] 81 mg tablet,delayed release (DR/EC) 81 mg PO DAILY (DME) lancets [BD Ultra Fine Lancets] 33 gauge misc See Rx Instructions .Route Rx Instructions: As directed divalproex [Depakote] 500 mg tablet,delayed release (DR/EC) 1,000 mg PO .COMPLEX Rx Instructions: Take 2 tablets orally every evening (along with 250 mg tablet for a total evening dose of 1250 mg) and 2 tablet every morning. divalproex 250 mg tablet,delayed release (DR/EC) 250 mg PO DAILY Qty: 90 1RF Rx Instructions: Take with 1000 mg Divalproex for a total evening dose of 1250 mg daily. pantoprazole 40 mg tablet,delayed release (DR/EC) 40 mg PO DAILY Qty: 90 0RF Rx Instructions: Take 30 minutes before breakfast (DME) blood-glucose meter [True Metrix Air Glucose Meter] Kit See Rx Instructions .ROUTE .MEDSUPPLY Qty: 1 0RF Rx Instructions: As directed (DME) disability placard See Rx Instructions .ROUTE .MEDSUPPLY Qty: 1 0RF Rx Instructions: As directed, Length of time: 5 years (DME) True Metrix Glucose Test Strip Strip See Rx Instructions .ROUTE .MEDSUPPLY Qty: 100 3RF Rx Instructions: check twice a day and as needed atorvastatin 80 mg tablet 80 mg PO QHS Qty: 90 3RF isosorbide mononitrate 30 mg tablet extended release 24 hr See Rx Instructions .ROUTE .COMPLEX Qty: 90 3RF Dose Instruction: TAKE 1 TABLET BY MOUTH EVERY DAY Rx Instructions: TAKE 1 TABLET BY MOUTH EVERY DAY losartan 50 mg tablet See Rx Instructions .ROUTE .COMPLEX Qty: 180 3RF Dose Instruction: TAKE 1 TABLET BY MOUTH TWICE DAILY Rx Instructions: TAKE 1 TABLET BY MOUTH TWICE DAILY clopidogrel 75 mg tablet See Rx Instructions .ROUTE .COMPLEX Qty: 90 3RF Dose Instruction: TAKE 1 TABLET BY MOUTH EVERY DAY Rx Instructions: TAKE 1 TABLET BY MOUTH EVERY DAY hydroxychloroquine 200 mg tablet See Rx Instructions .ROUTE .COMPLEX Qty: 90 3RF Dose Instruction: TAKE 1 TABLET BY MOUTH TWICE DAILY WITH MEALS Rx Instructions: TAKE 1 TABLET BY MOUTH TWICE DAILY WITH MEALS carvedilol 12.5 mg tablet See Rx Instructions .ROUTE .COMPLEX Qty: 180 1RF Dose Instruction: TAKE 1 TABLET BY MOUTH TWICE DAILY Rx Instructions: TAKE 1 TABLET BY MOUTH TWICE DAILY Januvia 100 mg tablet See Rx Instructions .ROUTE .COMPLEX Qty: 90 1RF Dose Instruction: TAKE 1 TABLET BY MOUTH DAILY Rx Instructions: TAKE 1 TABLET BY MOUTH DAILY Prolia 60 mg/mL syringe 60 mg subcut [id number] Qty: 1 2RF Primary Care Provider: Mayda Garcia Referrals: Mayda Garcia MD [Primary Care Provider] - What to do if you have Problems For any increased pain, shortness of breath, bleeding, nausea or vomiting, chestpain, or any unexpected problems, contact your Primary Care Provider. Call [facility] ([phone]) or report to the closest Emergency Room. Call 911 if necessary. 12/18/22 07 <Electronically signed by Turner Armendariz DO> Cosigner Signature (if applicable): CC: Dr. Mayda Garcia MD ~ Signed ADDENDUM by Dr. Jossue Boyd MD on 12/18/22 at 0857 Patient's troponin came back very low at 4, I reviewed the radiologist's chest x-ray result which was negative for anything acute. Her EKG is unremarkable. She is in a lot of pain. I had nursing try GI cocktail since nitroglycerin really did not seem to help a lot, it did not help her pain at all. I discussedwith Dr. Young who was on-call for cardiology, he agrees with admitting her, request that we start her on heparin in preparation for probable heart catheterization at some point today. I did review her last nuclear stress test which was 11 months ago and negative. Discussed with hospitalist for admission to PCU. 12/18/22 0857<Electronically signed by Jossue Boyd MD> Cosigner Signature (if applicable): cc: Dr. Mayda Garcia MD ~* Signed [facility] Work Phone: [phone] Freeman [facility] August 14, 2022 1:07am Note Date/Time August 13, 2022 10: 30pm [facility] Medical Records Department [address] [place] [address] Emergency Department Summary 08/13/22 MR#: [id number] Acct: [id number] Name: LACY ALVARADO Rep #:[id number] : 1950 71 From: Tin Freeman DO PCP: Dr. Mayda Garcia MD Status:R EG ER Location: ED HPI History of Present Illness Chief Complaint: Seizure Narrative Narrative: 71-year-old female presents status post seizure. This was unwitnessed. Her sonstates he heard some noise coming from her room and it appeared that she was having seizure-like activity. He estimates about 2 minutes of seizure-like activity. Patient was postictal. She is alert and talking now. She has history of seizure disorder. She is on Depakote. Patient states he has had breakthrough seizures in the past. 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 She complains of headache, and states that she does not usually have a headacheafter seizure. No fever, chills. PFSH [facility] Medical History Abdominal pain Acute back pain Anemia Arthritis Atherosclerotic heart disease of [place] coronary artery without angina pectoris Cardiology follow-up encounter Cervical radiculopathy Chronic diastolic CHF (congestive heart failure) Colon cancer screening Compression fracture of lumbar spine, non-traumatic Congestive heart failure (CHF) Conversion disorder Cough CPAP (continuous positive airway pressure) dependence Diabetes Diabetes mellitus type 2 in nonobese Diabetes type 2, controlled Dysuria Dysuria Essential (primary) hypertension Foreign body in stomach GERD (gastroesophageal reflux disease) Health care maintenance Hives Hyperglycemia due to type 2 diabetes mellitus Hyperlipidemia Left shoulder pain Non-smoker Non-toxic goiter Obesity Obstructive sleep apnea Osteoarthritis Osteoporosis Personal history of colonic polyps Rheumatoid arthritis RIGHT FOOT HEEL SPUR Right shoulder pain Routine health maintenance Seasonal allergies Seizure disorder Seizures Shortness of breath on exertion Sleep apnea Therapeutic drug monitoring Type 2 diabetes mellitus Urinary frequency Urinary frequency Wears glasses Home Medications multivitamin 1 tab PO DAILY vitamin 05/20/19 [History Last Taken 12/31/21] blood-glucose meter (True Metrix Air Glucose Meter kit) #1 ea 02/03/20 [Rx Last Taken Unknown] calcium citrate 200 mg (950 mg) tablet 200 mg PO BID supplement 05/21/20 [History Last Taken 12/31/21] disability placard #1 ea 06/27/20 [Rx Last Taken Unknown] aspirin 81 mg tablet,delayed release (Adult Low Dose Aspirin) 81 mg PO DAILY heart 08/13/20 [History Last Taken 12/31/21] blood sugar diagnostic (True Metrix Glucose Test Strip) #100 ea 07/17/21 [Rx Last Taken Unknown] clopidogrel 75 mg tablet 75 mg PO DAILY heart 01/02/22 [History Last Taken 01/01/22] isosorbide mononitrate 30 mg tablet,extended release 24 hr 30 mg PO DAILY chest pain 01/02/22 [History Last Taken 12/31/21] losartan 50 mg tablet 50 mg PO BID blood pressure 01/02/22 [History Last Taken 12/31/21] divalproex 250 mg tablet,extended release 24 hr 500 mg PO DAILY seziures 01/10/22 [History Last Taken Unknown] divalproex 500 mg tablet,delayed release (Depakote) 500 mg PO BID #60 tabs 03/14/22 [Rx Last Taken Unknown] carvedilol 12.5 mg tablet 12.5 mg PO BID heart rate #180 tabs 04/02/22 [Rx Last Taken Unknown] lancets 33 gauge (BD Ultra Fine Lancets) 04/02/22 [History Last Taken Unknown] sitagliptin phosphate 100 mg tablet (Januvia) 100 mg PO DAILY #90 tabs 04/02/22 [Rx Last Taken Unknown] guaifenesin 400 mg tablet 400 mg PO TID PRN congestion, cough #30 tabs 05/16/22 [Rx Last Taken Unknown] denosumab 60 mg/mL subcutaneous syringe (Prolia) 60 mg subcut [id number] #1 mL 05/20/22 [Rx Last Taken Unknown] hydrocodone-acetaminophen 5-325mg 5mg-325mg 1 tab PO Q6H PRN PRN Pain 3 days #10TABLETS 06/07/22 [Rx Last Taken Unknown] atorvastatin 80 mg tablet 80 mg PO QHS cholesterol #90 tabs 06/11/22 [Rx Last Taken Unknown] hydroxychloroquine 200 mg tablet See Rx Instructions .Route .COMPLEX #60 tabs 06/12/22 [Rx Last Taken Unknown] Allergy/AdvReac Type Severity Reaction Status Date / Time prednisone AdvReac Nausea Verified 08/13/22 22:02 Family History Grandmother Alcoholism Cancer Arthritis Mother Alcoholism Diabetes blood clots Hypertension Grandfather Heart disease Sister Thyroid disorder Other Breast cancer Cervical cancer Colon cancer Surgical History H/O: hysterectomy History of cardiac catheterization History of carpal tunnel surgery History of section History of coronary artery stent placement (03/22/18) History of left heart catheterization (09/20/18) Social History Smoking Status: Never smoker second hand exposure: No alcohol intake: current alcohol intake frequency: holidays/special occasions only substance use type: does not use what type of physical activity do you participate in: none ROS ROS ED Constitutional Constitutional ED: Denies chills or fever(s) Eyes Eyes: Denies change in vision ENT ENT ED: Denies rhinorrhea or sore throat Cardiovascular Cardiovascular: Denies chest pain or palpitations Respiratory/Chest Respiratory/Chest: Denies cough or dyspnea Gastrointestinal Gastrointestinal: Denies nausea or vomiting Genitourinary Genitourinary ED: Denies dysuria or hematuria Musculoskeletal Musculoskeletal: Denies arthralgias Neurologic Neurologic: Reports headache(s); Denies paresthesias or weakness Psychiatric Psychiatric: Denies anxiety or depression EXAM Physical Exam Const Vital Signs: 08/13/22 21:57 08/14/22 00:00 Temperature 98.2 F Temperature Source Temporal Pulse Rate 132 H 89 Respiratory Rate 31 H 17 Blood Pressure 188/79 H 126/63 H Blood Pressure Mean 115 84 Pulse Ox 98 99 Oxygen Delivery Method Room Air Room Air Positive well nourished General Appearance ED: NAD; Negative for pallor HEENT Reports moist mucous membranes Negative for trauma Eyes PERRL and EOMs intact bilaterally Chest Wall inspection of chest normal Resp normal respiratory effort and clear to auscultation bilaterally Auscultation: Negative for rales, rhonchi or wheezes Cardio regular rhythm Rate: tachycardic GI normal to inspection, nondistended, normoactive bowel sounds Neuro oriented x3 and CN's II-XII intact bilaterally Sensorium / Orientation: alert Motor Exam: strength 5/5 throughout Skin General Skin Exam: Negative for jaundice or pallor MDM MDM MDM Narrative Medical decision making narrative: Patient presenting with breakthrough seizure. Differential at this point is breakthrough seizure, intracranial hemorrhage, migraine headaches, electrolyte abnormality, dehydration. Patient treated with migraine cocktail.. IV fluids were given. Will obtain CT of the brain and basic lab work. CBC shows no leukocytosis. Hemoglobin however stable her platelets are normal. Liver function, renal function appear to be normal. Glucose [address] brain negative for acute intracranial findings. Patient initially tachycardic so I did obtain an EKG which was sinus rhythm at 100 bpm without sign of ischemic change or dysrhythmia. Depakote level was 38 and therefore subtherapeutic. Patient given 250 mg of Depakote. She states she already took her Depakote this evening. I recommended to her that she follow-up with her primary care as this is who manages her Depakote levels. Patient's headache is improved after migraine cocktail. All questions were answered. Patient discharged home in stable condition. Impression: 1. Breakthrough seizure 2. Subtherapeutic Depakote level 3. Tachycardia resolved 4. Headache Lab Data Labs: Laboratory Results - last 24 hr 08/13/22 08/13/22 08/13/22 22:35 22:35 22:35 WBC 6.2 RBC 4.08 L Hgb 12.8 Hct 40.5 MCV 99.3 H MCH 31.4 MCHC 31.6 L RDW Std Deviation 49.6 H RDW Coeff of [place] 13.5 Plt Count 207 MPV 10.6 Immature Gran % (Auto) 0.200 Neut % (Auto) 45.6 L Lymph % (Auto) 44.1 H Hayes % (Auto) 7.4 Eos % (Auto) 2.1 Baso % (Auto) 0.6 Absolute Neuts (auto) 2.8 Absolute Lymphs (auto) 2.73 Nucleated RBC % 0 Sodium 140 Potassium 3.7 Chloride 114 H Carbon Dioxide 22.0 Anion Gap 4 L BUN 19 H Creatinine 1.01 Estim Creat Clear Calc 41.58 Est GFR (MDRD) Af Amer 70 Est GFR (MDRD) Non-Af 58 L BUN/Creatinine Ratio 18.8 Glucose 143 H Calcium 8.5 Total Bilirubin 0.20 AST 28 ALT 32 Alkaline Phosphatase 103 Total Protein 7.6 Albumin 3.6 Globulin 4.0 Albumin/Globulin Ratio 0.9 Valproic Acid 38 L Radiography Diagnostic Testing: Clinical Impression(s) from Imaging Studies Brain CT 08/13/22 22:27 IMPRESSION: Negative Brain CT without contrast. Electronically Signed: Taco Pozo MD at 23:33 EDT , Discharge Plan Triage Chief Complaint: Seizure ED Provider: Tin Freeman Dx/Rx/DC Orders Instructions: ED Seizure, Recurrent (Adult) Prescriptions: No Action multivitamin Tablet 1 tab PO DAILY calcium citrate 200 mg (950 mg) tablet 200 mg PO BID aspirin [Adult Low Dose Aspirin] 81 mg tablet,delayed release (DR/EC) 81 mg PO DAILY (DME) lancets [BD Ultra Fine Lancets] 33 gauge misc See Rx Instructions .Route Rx Instructions: As directed carvedilol 12.5 mg tablet 12.5 mg PO BID Qty: 180 1RF Januvia 100 mg tablet 100 mg PO DAILY Qty: 90 1RF losartan 50 mg tablet 50 mg PO BID isosorbide mononitrate 30 mg tablet extended release 24 hr 30 mg PO DAILY clopidogrel 75 mg tablet 75 mg PO DAILY divalproex 250 mg tablet extended release 24 hr 500 mg PO DAILY Rx Instructions: Take with two tabs of divalproex ER 500mg for a total dose of 1250mg once daily divalproex [Depakote] 500 mg tablet,delayed release (DR/EC) 500 mg PO BID Qty: 60 0RF hydrocodone-acetaminophen [hydrocodone-acetaminophen] 5-325 mg tablet 1 tab PO Q6H PRN PRN (Reason: Pain) 3 Days Qty: 10 0RF (DME) blood-glucose meter [True Metrix Air Glucose Meter] Kit See Rx Instructions .ROUTE .MEDSUPPLY Qty: 1 0RF Rx Instructions: As directed (DME) disability placard See Rx Instructions .ROUTE .MEDSUPPLY Qty: 1 0RF Rx Instructions: As directed, Length of time: 5 years (DME) True Metrix Glucose Test Strip Strip See Rx Instructions .ROUTE .MEDSUPPLY Qty: 100 3RF Rx Instructions: check twice a day and as needed guaifenesin 400 mg tablet 400 mg PO TID PRN (Reason: congestion, cough) Qty: 30 0RF Prolia 60 mg/mL syringe 60 mg subcut [id number] Qty: 1 0RF atorvastatin 80 mg tablet 80 mg PO QHS Qty: 90 3RF hydroxychloroquine 200 mg tablet See Rx Instructions .ROUTE .COMPLEX Qty: 60 0RF Dose Instruction: TAKE 1 TABLET BY MOUTH TWICE DAILY WITH MEALS Rx Instructions: TAKE 1 TABLET BY MOUTH TWICE DAILY WITH MEALS Primary Care Provider: Mayda Garcia Referrals: Mayda Garcia MD [Primary Care Provider] - Disposition Disposition: Home, Self Care What to do if you have Problems For any increased pain, shortness of breath, bleeding, nausea or vomiting, chestpain, or any unexpected problems, contact your Primary Care Provider. Call [facility] ([phone]) or report to the closest Emergency Room. Call 911 if necessary. 08/14/22 010 <Electronically signed by Tin Freeman DO> Cosigner Signature (if applicable): CC: Dr. Mayda Garcia MD ~ Signed [facility] Work Phone: 1(555) 380-608002-04-[address] Patel [facility] June 07, 2022 6:15pm Note Date/Time June 07, 2022 6 :12pm [facility] Medical Records Department [address] [place] [address] Emergency Department Summary 06/07/22 MR#: [id number] Acct: [id number] Name: LACY ALVARADO Rep #:[id number] : 1950 71 From: Ezekiel Patel MD PCP: Dr. Mayda Garcia MD Status:P RE ER Location: ED HPI History of Present Illness Chief Complaint: Chest Other Detail of Chief Complaint: Left-sided chest pain and shoulder pain status post seizure Informant: patient Onset/Context/Timing Onset: Yesterday (Patient was seen for breakthrough seizure now presents with chest and shoulder pain) Mechanism/Context: Blunt Injury Location of pain/injuries: Left shoulder Quality of Pain: Dull and Aching Location: Left side of rib cage and shoulder. Current Severity: Mild Maximum Severity: Moderate Worsened by: Breathing and movement of left upper extremity Associated Symptoms Associated Symptoms: Negative for Parasthesias, Weakness, Loss of function, Inability to ambulate, Loss of consciousness or Amnesia Narrative Narrative: Patient is a 71-year-old woman with history of atherosclerotic heart disease, cardiac stents, chronic diastolic congestive heart failure, essential hypertension, hyperlipidemia, obesity, type 2 diabetes, obstructive sleep apnea who presents today because of left-sided chest pain that she localizes over ribs5 through 8 anterior mid clavicular line to the posterior axillary line. She states there is no bruising. It hurts to breathe and move. She has increased pain with movement of her left arm. She denies paresthesia, anesthesia or motorweakness. She denies headache. Denies visual, ocular auditory symptoms. She denies nausea, vomit or diarrhea. She denies urologic symptoms. Tetanus Immunization: 5-10 years Recent Illness/Hospitalization: Yes [facility] Medical History Abdominal pain Acute back pain Anemia Arthritis Atherosclerotic heart disease of [place] coronary artery without angina pectoris Cardiology follow-up encounter Cervical radiculopathy Chronic diastolic CHF (congestive heart failure) Colon cancer screening Compression fracture of lumbar spine, non-traumatic Congestive heart failure (CHF) Conversion disorder Cough CPAP (continuous positive airway pressure) dependence Diabetes Diabetes mellitus type 2 in nonobese Diabetes type 2, controlled Dysuria Dysuria Essential (primary) hypertension Foreign body in stomach GERD (gastroesophageal reflux disease) Health care maintenance Hives Hyperglycemia due to type 2 diabetes mellitus Hyperlipidemia Left shoulder pain Non-smoker Non-toxic goiter Obesity Obstructive sleep apnea Osteoarthritis Osteoporosis Personal history of colonic polyps Rheumatoid arthritis RIGHT FOOT HEEL SPUR Right shoulder pain Routine health maintenance Seasonal allergies Seizure disorder Seizures Shortness of breath on exertion Sleep apnea Therapeutic drug monitoring Type 2 diabetes mellitus Urinary frequency Urinary frequency Wears glasses Home Medications multivitamin 1 tab PO DAILY vitamin 05/20/19 [History Last Taken 12/31/21] blood-glucose meter (True Metrix Air Glucose Meter kit) #1 ea 02/03/20 [Rx Last Taken Unknown] calcium citrate 200 mg (950 mg) tablet 200 mg PO BID supplement 05/21/20 [History Last Taken 12/31/21] disability placard #1 ea 06/27/20 [Rx Last Taken Unknown] aspirin 81 mg tablet,delayed release (Adult Low Dose Aspirin) 81 mg PO DAILY heart 08/13/20 [History Last Taken 12/31/21] blood sugar diagnostic (True Metrix Glucose Test Strip) #100 ea 07/17/21 [Rx Last Taken Unknown] atorvastatin 80 mg tablet 80 mg PO QHS cholesterol 01/02/22 [History Last Taken 12/31/21] clopidogrel 75 mg tablet 75 mg PO DAILY heart 01/02/22 [History Last Taken 01/01/22] isosorbide mononitrate 30 mg tablet,extended release 24 hr 30 mg PO DAILY chest pain 01/02/22 [History Last Taken 12/31/21] losartan 50 mg tablet 50 mg PO BID blood pressure 01/02/22 [History Last Taken 12/31/21] divalproex 250 mg tablet,extended release 24 hr 500 mg PO DAILY seziures 01/10/22 [History Last Taken Unknown] divalproex 500 mg tablet,delayed release (Depakote) 500 mg PO BID #60 tabs 03/14/22 [Rx Last Taken Unknown] hydrocodone-acetaminophen 5-325mg 5mg-325mg 1 tab PO Q6H PRN PRN Pain 3 days #10TABLETS 03/29/22 [Rx Last Taken Unknown] carvedilol 12.5 mg tablet 12.5 mg PO BID heart rate #180 tabs 04/02/22 [Rx Last Taken Unknown] hydroxychloroquine 200 mg tablet 200 mg PO BIDCM arthritis #60 tabs 04/02/22 [Rx Last Taken Unknown] lancets 33 gauge (BD Ultra Fine Lancets) 04/02/22 [History Last Taken Unknown] sitagliptin phosphate 100 mg tablet (Januvia) 100 mg PO DAILY #90 tabs 04/02/22 [Rx Last Taken Unknown] amoxicillin 875 mg-potassium clavulanate 125 mg tablet 1 tab PO BID #14 tabs 05/16/22 [Rx Last Taken Unknown] benzonatate 200 mg capsule 200 mg PO TID PRN cough #30 caps 05/16/22 [Rx Last Taken Unknown] guaifenesin 400 mg tablet 400 mg PO TID PRN congestion, cough #30 tabs 05/16/22 [Rx Last Taken Unknown] denosumab 60 mg/mL subcutaneous syringe (Prolia) 60 mg subcut [id number] #1 mL 05/20/22 [Rx Last Taken Unknown] cefdinir 300 mg capsule 300 mg PO BID #13 caps 06/06/22 [Rx Last Taken Unknown] hydrocodone-acetaminophen 5-325mg 5mg-325mg 1 tab PO Q6H PRN PRN Pain 3 days #10TABLETS 06/07/22 [Rx Last Taken Unknown] Allergy/AdvReac Type Severity Reaction Status Date / Time prednisone AdvReac Nausea Verified 06/07/22 17:44 Family History Grandmother Alcoholism Cancer Arthritis Mother Alcoholism Diabetes blood clots Hypertension Grandfather Heart disease Sister Thyroid disorder Other Breast cancer Cervical cancer Colon cancer Surgical History H/O: hysterectomy History of cardiac catheterization History of carpal tunnel surgery History of section History of coronary artery stent placement (03/22/18) History of left heart catheterization (09/20/18) Social History Smoking Status: Never smoker second hand exposure: No alcohol intake: current alcohol intake frequency: holidays/special occasions only substance use type: does not use what type of physical activity do you participate in: none ROS ROS ED Constitutional Constitutional ED: Denies chills, fever(s), subjective, sweats or weight loss Eyes Eyes: Denies blurry vision or change in vision ENT ENT ED: Denies ear pain, rhinorrhea or sore throat Cardiovascular Cardiovascular: Reports chest pain; Denies palpitations, paroxysmal nocturnal dyspnea or racing heartbeat Respiratory/Chest Respiratory/Chest: Reports cough; Denies dyspnea, dyspnea on exertion, paroxysmal nocturnal dyspnea or sputum Gastrointestinal Gastrointestinal: Denies abdominal pain, diarrhea, melena, nausea or vomiting Genitourinary Genitourinary ED: Denies dysuria, hematuria or urinary frequency Musculoskeletal Musculoskeletal: Denies arthralgias, back pain, myalgias or neck pain Integumentary Denies rash Neurologic Neurologic: Denies headache(s), paresthesias or weakness Hematologic/Lymphatic Hematologic/Lymphatic: Denies easy bleeding or easy bruising EXAM Physical Exam Const Vital Signs: 06/07/22 17:41 Temperature 97.9 F Temperature Source Temporal Pulse Rate 90 Respiratory Rate 18 Blood Pressure 180/85 H Blood Pressure Mean 116 Pulse Ox 100 Oxygen Delivery Method Room Air Positive well nourished and obese Constitutional Narrative: Patient appears uncomfortable. Nutritional Appearance: obese HEENT HEENT Narrative: Head is atraumatic normocephalic. There is no clinical signs of basilar skull fracture. There is no septal deviation hematoma. There is no dental trauma. Eyes PERRL and EOMs intact bilaterally General Eye ED: Yes other Other Details: Conjunctive is pink. Sclera is anicteric. Chest Wall inspection of chest normal and palpation of chest normal Chest Narrative: There is pain the patient over the left chest wall. There is no crepitus or subcutaneous air appreciated. Pain is from the mid anterior clavicular line to the posterior axillary line over ribs 5, 6, 7 and 8. Resp normal respiratory effort and clear to auscultation bilaterally Effort and Inspection: pain with movement Cardio regular rhythm, S1 normal heart sound, S2 normal heart sound and no murmurs Cardio Narrative: Negative Tyler's crunch. Rate: regular rate GI normal to inspection, nondistended, normoactive bowel sounds, non-tender, non-distended and no masses Auscultation: normoactive bowel sounds Palpation: soft Back/Spine General Back: Negative for CVA tenderness Thoracic Spine / Upper Back: Negative for thoracic spinal tenderness Extremity normal to inspection Neuro oriented x3, CN's II-XII intact bilaterally and moves all extremities Wilcox Coma Scale: document GCS findings Spontaneous Oriented Sensorium / Orientation: alert Psych mental status grossly normal and thought process normal Skin no rashes or lesions noted, no wounds, skin turgor normal and no jaundice Trauma: Negative for abrasion MDM MDM MDM Narrative Medical decision making narrative: Outside records reviewed. Yesterday's ER record was reviewed. Since patient had a chest x-ray and there was no evidence of fractured ribs or pneumothorax this was not repeated. Furthermore patient had a CT that revealed no evidence of pneumothorax, hemothorax or lower rib fractures where she is complaining of pain. There was no evidence of hepatic or splenic injury. On the chest x-ray there was no evidence of subluxation, dislocation of the shoulder or evidence offracture. For this reason radiologic imaging was not repeated. There was comment that she may have a infiltrate on the left. She was treated for pneumonia. Since patient has no signs or symptoms of hyperglycemia basic metabolic panel was not obtained. Review of outside records indicates patient does have history of obstructive sleep apnea as well as moderately controlled diabetes. Patient was instructed how to use an incentive spirometer and discharged with opiate analgesics. She was not treated with NSAIDs because of her history of hypertension diabetes and GERD. Rhythm Strip Rhythm Strip: Sinus Rhythm Rate: 88 Ectopy: None Discharge Plan Triage Chief Complaint: Chest Other ED Provider: JorgeEzekiel Dx/Rx/DC Orders Clinical Impression: Contusion of back wall of thorax, GERD (gastroesophageal reflux disease), Breakthrough seizure, Essential (primary) hypertension, Type 2 diabetes mellitus Instructions: ED Chest Wall Contusion Prescriptions: New hydrocodone-acetaminophen [hydrocodone-acetaminophen] 5-325 mg tablet 1 tab PO Q6H PRN PRN (Reason: Pain) 3 Days Qty: 10 0RF No Action multivitamin Tablet 1 tab PO DAILY calcium citrate 200 mg (950 mg) tablet 200 mg PO BID aspirin [Adult Low Dose Aspirin] 81 mg tablet,delayed release (DR/EC) 81 mg PO DAILY (DME) lancets [BD Ultra Fine Lancets] 33 gauge misc See Rx Instructions .Route Rx Instructions: As directed carvedilol 12.5 mg tablet 12.5 mg PO BID Qty: 180 1RF hydroxychloroquine 200 mg tablet 200 mg PO BIDCM Qty: 60 0RF Januvia 100 mg tablet 100 mg PO DAILY Qty: 90 1RF losartan 50 mg tablet 50 mg PO BID atorvastatin 80 mg tablet 80 mg PO QHS isosorbide mononitrate 30 mg tablet extended release 24 hr 30 mg PO DAILY clopidogrel 75 mg tablet 75 mg PO DAILY divalproex 250 mg tablet extended release 24 hr 500 mg PO DAILY Rx Instructions: Take with two tabs of divalproex ER 500mg for a total dose of 1250mg once daily divalproex [Depakote] 500 mg tablet,delayed release (DR/EC) 500 mg PO BID Qty: 60 0RF hydrocodone-acetaminophen [hydrocodone-acetaminophen] 1 TABLET tablet 1 tab PO Q6H PRN PRN (Reason: Pain) 3 Days Qty: 10 0RF cefdinir 300 mg capsule 300 mg PO BID Qty: 13 0RF (DME) blood-glucose meter [True Metrix Air Glucose Meter] Kit See Rx Instructions .ROUTE .MEDSUPPLY Qty: 1 0RF Rx Instructions: As directed (DME) disability placard See Rx Instructions .ROUTE .MEDSUPPLY Qty: 1 0RF Rx Instructions: As directed, Length of time: 5 years (DME) True Metrix Glucose Test Strip Strip See Rx Instructions .ROUTE .MEDSUPPLY Qty: 100 3RF Rx Instructions: check twice a day and as needed benzonatate 200 mg capsule 200 mg PO TID PRN (Reason: cough) Qty: 30 0RF guaifenesin 400 mg tablet 400 mg PO TID PRN (Reason: congestion, cough) Qty: 30 0RF amoxicillin-pot clavulanate 875-125 mg tablet 1 tab PO BID Qty: 14 0RF Prolia 60 mg/mL syringe 60 mg subcut [id number] Qty: 1 0RF Primary Care Provider: Mayda Garcia Referrals: Mayda Garcia MD [Primary Care Provider] - 3-5 Days if not improving Activity Restrictions/Additional Instructions: Apply ice to your left chest wall and shoulder 6-10 times a day Disposition Disposition: Home, Self Care What to do if you have Problems For any increased pain, shortness of breath, bleeding, nausea or vomiting, chestpain, or any unexpected problems, contact your Primary Care Provider. Call [facility] ([phone]) or report to the closest Emergency Room. Call 911 if necessary. 06/07/221814 <Electronically signed by Ezekiel aPtel MD> Cosigner Signature (if applicable): CC: Dr. Mayda Garcia MD ~ Signed [facility] Work Phone: [phone] 651-258202-04-2023 Hospital Discharge instructions Additional Instructions Apply ice to your left chest wall and shoulder 6[facility] a [facility]: Discharge summary Author [facility] December 19, 2022 4:23pm Note Date/Time December 19, 2022 3: 41pm [facility] Medical Records Department [address] [place] [address] Discharge Summary 12/19/22 1541 MR#: [id number] Acct: [id number] Name: LACY ALVARADO Rep #:[id number] : 1950 72 From: Edwin martin DO PCP: Dr. Mayda Garcia MD Status:A DM DELFIN Location: [place] [address] Providers Date of Admission: 12/18/22 Date of Discharge: 12/19/22 Primary Care Physician: Dr. Mayda Garcia MD Consultations 12/18/22 13:05 Consult: Cardiology Routine Consulting Provider: Bhanu Milian Reason for Consult: chest pain EMERGENT Consult: No MD Notified: Yes Date Notified: 12/18/22 Time Notified: 13:05 Method of Notification: Text Reason For Visit: CHEST PAIN, HX CAD Diagnosis Discharge Diagnosis (1) Chest pain: Status: Acute Code(s): R07.9 - Chest pain, unspecified (2) History of coronary artery stent placement: Status: Chronic Code(s): Z95.5 - Presence of coronary angioplasty implant and graft (3) Essential (primary) hypertension: Status: Chronic Code(s): I10 - Essential (primary) hypertension (4) Hyperlipidemia: Status: Chronic Code(s): E78.5 - Hyperlipidemia, unspecified Qualifiers: Hyperlipidemia type: pure hypercholesterolemia Qualified Code(s): E78.00 - Pure hypercholesterolemia, unspecified; E78.0 - Pure hypercholesterolemia Medications at Discharge Home Medications multivitamin 1 tab PO DAILY vitamin 05/20/19 blood-glucose meter (True Metrix Air Glucose Meter kit) #1 ea 02/03/20 calcium citrate 200 mg (950 mg) tablet 200 mg PO BID supplement 05/21/20 disability placard #1 ea 06/27/20 aspirin 81 mg tablet,delayed release (Adult Low Dose Aspirin) 81 mg PO DAILY heart 08/13/20 blood sugar diagnostic (True Metrix Glucose Test Strip) #100 ea 07/17/21 lancets 33 gauge (BD Ultra Fine Lancets) 04/02/22 atorvastatin 80 mg tablet 80 mg PO QHS cholesterol #90 tabs 06/11/22 clopidogrel 75 mg tablet See Rx Instructions .Route .COMPLEX #90 TABLETS 08/20/22 losartan 50 mg tablet See Rx Instructions .Route .COMPLEX #180 TABLETS 08/20/22 hydroxychloroquine 200 mg tablet See Rx Instructions .Route .COMPLEX #90 tabs 08/25/22 divalproex 250 mg tablet,delayed release 250 mg PO DAILY #90 tabs 10/02/22 divalproex 500 mg tablet,delayed release (Depakote) 1,000 mg PO .COMPLEX 10/03/22 carvedilol 12.5 mg tablet See Rx Instructions .Route .COMPLEX #180 tabs 12/08/22 sitagliptin phosphate 100 mg tablet (Januvia) See Rx Instructions .Route .COMPLEX #90 tabs 12/08/22 denosumab 60 mg/mL subcutaneous syringe (Prolia) 60 mg subcut [id number] #1 mL 12/11/22 pantoprazole 40 mg tablet,delayed release 40 mg PO DAILY #90 tabs 12/11/22 isosorbide mononitrate 60 mg tablet,extended release 24 hr 60 mg PO DAILY 30 days #30 tabs 12/19/22 Hospital Course Operations None Procedures Cardiac catheterization, Transthoracic echo and - (Chest x-ray) Summary of Care Provided Minutes Spent on Discharge: 38 Hospital Course: Lacy Alvarado is a 72-year-old female with history significant for CAD s/p stenting on Plavix (follows w/ Dr. Johnson), hypertension, seizures, [id number] type 2 diabetes and GERD who presented to the [facility] ED on 12/18 with chest pain. She stated that the pain startedthe evening prior to admission. She tried to go to bed, but it woke her up fromsleep multiple times and then spread to numbness and tingling in her left hand along with shortness of breath and nausea. She also had a pressure in the left side of her chest that would not go away, which was similar to the discomfort she had in the past when she required stents. This prompted her to come in for evaluation. Labs on admission were fairly benign. Troponin was negative. EKG reportedly showed no acute changes, however I was unable to view this. Chest x-ray is nonacute. Cardiology evaluated and determined patient required left heart cath for further evaluation. LHC on 12/[address] Milian had the following findings: In the mid LAD after second diagonal branch, there is an in-stent restenosis around 50%. First diagonal which is moderate in size has a mid eccentric atherosclerosis of at least 60 to 70%. Left circumflex artery calcified ostium of around 80% in the large OM1 and OM 2 branches. Cardiology recommended further evaluation by cardiothoracic surgery because of the tight lesion in the ostium of the circumflex artery. She is planned for an outpatient appointment with them in [place] early next week. She tolerated the catheterization well and was stable afterwards. A transthoracic echocardiogram was done post catheterization, read was pending on discharge. She was discharged home in stable condition. Discharge diagnoses: Chest pain, improved CAD s/p stenting Hypertension Seizures [id number] type 2 diabetes GERD PCP follow-up: Patient will be following up with cardiothoracic surgery in [facility] discuss options for intervention on her high-grade ostial lesion in the circumflex artery. Increased her Imdur from 30 mg to 60 mg daily per cardiologyrecommendations. Echo read was pending on discharge, please follow-up. Total clinical time spent by myself addressing the patient's discharge needs: 38minutes. Physical Exam Const alert and oriented x3 Constitutional Narrative: Pleasant elderly female, obese, sitting comfortably in bed, conversing normally,no acute distress. General Appearance: cooperative and comfortable HEENT normocephalic, head/scalp atraumatic, hearing grossly normal bilaterally, nasal mucous membranes and turbinates normal and moist oral mucous membranes Eyes PERRL, EOMs intact bilaterally and conjunctivae normal Neck full ROM, no lymphadenopathy and supple Lymph Lymphatic: no lymphadenopathy noted Chest inspection of chest normal Resp normal respiratory effort, normal air movement, no use of accessory muscles and clear to auscultation bilaterally Cardio regular rate, regular rhythm, no murmurs and peripheral pulses 2+ throughout GI normal to inspection, nondistended, normoactive bowel sounds, soft to palpation,non-tender and non-distended Back/Spine normal ROM Extremity normal to inspection and full ROM Extremity Narrative: Mild bilateral lower extremity nonpitting edema up to mid david noted. Skin no rashes or lesions noted Psych mental status grossly normal Weight / BMI Weight Weight: 77.9 kg Body Mass Index (BMI) 31.4 ABG / Lab / Microbiology Data 12/18/22 05:50 12/18/22 05:50 Laboratory: Laboratory Results - last 24 hr 12/19/22 06:26: POC Glucose 101 D/C Instructions Discharge Diet: Carb Control Diet Weight Bearing Status: Full weight bearing Pending Tests Upon Discharge: Echo report Meaningful Use Info Meaningful Use Diagnoses (Choose all that apply): None applicable Discharge Plan Admission Admit Date/Time: 12/18/22 10:48 Primary Reason for Your Visit: Chest pain Attending Provider: Edwin Kaplan Primary Care Provider: Mayda Garcia Consulting Providers: Bhanu Milian Instructions Additional Instructions / Restrictions: Please start taking isosorbide mononitrate 60 mg daily as instructed by cardiology. Take all other other home medications as prescribed. Follow-up with the cardiothoracic surgery team at [place] as discussed. Discharge Orders/Prescriptions Prescriptions: New isosorbide mononitrate 60 mg Tablet Extended Release 24 Hr 60 mg PO DAILY 30 Days Qty: 30 0RF Continued multivitamin Tablet 1 tab PO DAILY calcium citrate 200 mg (950 mg) tablet 200 mg PO BID aspirin [Adult Low Dose Aspirin] 81 mg tablet,delayed release (DR/EC) 81 mg PO DAILY (DME) lancets [BD Ultra Fine Lancets] 33 gauge misc See Rx Instructions .Route Rx Instructions: As directed divalproex [Depakote] 500 mg tablet,delayed release (DR/EC) 1,000 mg PO .COMPLEX Rx Instructions: Take 2 tablets orally every evening (along with 250 mg tablet for a total evening dose of 1250 mg) and 2 tablet every morning. divalproex 250 mg tablet,delayed release (DR/EC) 250 mg PO DAILY Qty: 90 1RF Rx Instructions: Take with 1000 mg Divalproex for a total evening dose of 1250 mg daily. pantoprazole 40 mg tablet,delayed release (DR/EC) 40 mg PO DAILY Qty: 90 0RF Rx Instructions: Take 30 minutes before breakfast (DME) blood-glucose meter [True Metrix Air Glucose Meter] Kit See Rx Instructions .ROUTE .MEDSUPPLY Qty: 1 0RF Rx Instructions: As directed (DME) disability placard See Rx Instructions .ROUTE .MEDSUPPLY Qty: 1 0RF Rx Instructions: As directed, Length of time: 5 years (DME) True Metrix Glucose Test Strip Strip See Rx Instructions .ROUTE .MEDSUPPLY Qty: 100 3RF Rx Instructions: check twice a day and as needed atorvastatin 80 mg tablet 80 mg PO QHS Qty: 90 3RF losartan 50 mg tablet See Rx Instructions .ROUTE .COMPLEX Qty: 180 3RF Dose Instruction: TAKE 1 TABLET BY MOUTH TWICE DAILY Rx Instructions: TAKE 1 TABLET BY MOUTH TWICE DAILY clopidogrel 75 mg tablet See Rx Instructions .ROUTE .COMPLEX Qty: 90 3RF Dose Instruction: TAKE 1 TABLET BY MOUTH EVERY DAY Rx Instructions: TAKE 1 TABLET BY MOUTH EVERY DAY hydroxychloroquine 200 mg tablet See Rx Instructions .ROUTE .COMPLEX Qty: 90 3RF Dose Instruction: TAKE 1 TABLET BY MOUTH TWICE DAILY WITH MEALS Rx Instructions: TAKE 1 TABLET BY MOUTH TWICE DAILY WITH MEALS carvedilol 12.5 mg tablet See Rx Instructions .ROUTE .COMPLEX Qty: 180 1RF Dose Instruction: TAKE 1 TABLET BY MOUTH TWICE DAILY Rx Instructions: TAKE 1 TABLET BY MOUTH TWICE DAILY Januvia 100 mg tablet See Rx Instructions .ROUTE .COMPLEX Qty: 90 1RF Dose Instruction: TAKE 1 TABLET BY MOUTH DAILY Rx Instructions: TAKE 1 TABLET BY MOUTH DAILY Prolia 60 mg/mL syringe 60 mg subcut [id number] Qty: 1 2RF Discontinued isosorbide mononitrate 30 mg tablet extended release 24 hr See Rx Instructions .ROUTE .COMPLEX Qty: 90 3RF Dose Instruction: TAKE 1 TABLET BY MOUTH EVERY DAY Rx Instructions: TAKE 1 TABLET BY MOUTH EVERY DAY Referrals / Follow Up: Mayda Garcia MD [Primary Care Provider] - Disposition Disposition (needs filled in before D/C Order can be placed): Home, Self Care Charges/Coding Visit Charges Inpatient E&M: 36923 Disch Hosp >30min 12/19/22 1623 <Electronically signed by Edwin Kaplan DO> Cosigner Signature (if applicable): CC: Dr. Edwin Kaplan DO; Dr. 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 Epilepsy, unspecified, not i ntractable, without status epilepticus chronic Occipital neuralgia chronic BMI 32.0-32.9,adult acute LINA (obstructive sleep apnea) chronic Health care maintenance acut e Right shoulder pain acute Essential (primary) hypertension chronic Seizures chronic Type 2 diabetes mellitus [facility] on[facility] Work Phone: Evaluation note* Diagnosis Onset Date Resolution Status Cerebrovascular disease 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 Epilepsy, unspecified, not i ntractable, without status epilepticus chronic Occipital neuralgia chronic BMI 32.0-32.9,adult acute LINA (obstructive sleep apnea) chronic Health care maintenance acut e Right shoulder pain acute Essential (primary) hypertension chronic Seizures chronic Type 2 diabetes mellitus chr onic Cough acute Chest pain acute Intractable pain acute Neck pain acute [facility] Work Phone: Evaluation note* Diagnosis Onset Date Resolution Status Cerebrovascular disease 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 Epilepsy, unspecified, not i ntractable, without status epilepticus chronic Occipital neuralgia chronic BMI 32.0-32.9,adult acute LINA (obstructive sleep apnea) chronic Health care maintenance acut e Right shoulder pain acute Essential (primary) hypertension chronic Seizures chronic Type 2 diabetes mellitus chr onic Cough acute Chest pain acute Intractable pain acute Neck pain acute Cervical radiculopathy acute Left shoulder pain acute Neck pain acute Left upper extremity numbness acute Essential (primary) hypertension chronic History of coronary artery stent placement March 222017 chronic Hyperlipidemia chronic [facility] Work Phone: evaluation note* Diagnosis Onset Date Resolution Status BMI 32.0-32.9,adult acute LINA (obstructive sleep apnea) chronic Health care maintenance acut e Right shoulder pain acute Essential (primary) hypertension chronic Seizures chronic Type 2 diabetes mellitus chr onic Cough acute Chest pain acute Intractable pain acute Neck pain acute Cervical radiculopathy acute Left shoulder pain acute Neck pain acute Left upper extremity numbness acute Essential (primary) hypertension chronic History of coronary artery stent placement March 222017 chronic Hyperlipidemia chronic [facility] Work Phone: Evaluation note* Diagnosis Onset Date Resolution Status Cough acute Chest pain acute Intractable pain acute Neck pain acute Cervical radiculopathy acute Left shoulder pain acute Neck pain acute Left upper extremity numbness acute Essential (primary) hypertension chronic History of coronary artery stent placement March 222017 chronic Hyperlipidemia chronic Obesity acute LINA (obstructive sleep apnea) chronic [facility] Work Phone: Evaluation note* Diagnosis Onset Date Resolution Status Obesity acute LINA (obstructive sleep apnea) chronic Seizures chronic Exposure to COVID-19 virus a cute [facility] Work Phone: Evaluation note* Diagnosis Onset Date Resolution Status Exposure to COVID-19 virus a cute Pain in left upper arm acute Essential (primary) hypertension chronic Seizures chronic Type 2 diabetes mellitus chr onic Osteoporosis acute [facility] Work Phone: Evaluation note* Diagnosis Onset Date Resolution Status Pain in left upper arm acute Essential (primary) hypertension chronic Type 2 diabetes mellitus chr onic Osteoporosis acute Memory changes acute Epilepsy, unspecified, not i ntractable, without status epilepticus chronic Memory loss acute Epilepsy, unspecified, not i ntractable, without status epilepticus chronic Right hip pain acute Essential (primary) hypertension chronic Type 2 diabetes mellitus chr onic [facility] Work Phone: Evaluation note* Diagnosis Onset Date Resolution Status Memory changes acute Epilepsy, unspecified, not i ntractable, without status epilepticus chronic Memory loss acute Epilepsy, unspecified, not i ntractable, without status epilepticus chronic Right hip pain acute Essential (primary) hypertension chronic Type 2 diabetes mellitus chr onic Osteoarthritis of right knee noneactive [facility] Work Phone: Evaluation note* Diagnosis Onset Date Resolution Status Memory changes acute Epilepsy, unspecified, not i ntractable, without status epilepticus chronic Memory loss acute Epilepsy, unspecified, not i ntractable, without status epilepticus chronic Right hip pain acute Essential (primary) hypertension chronic Type 2 diabetes mellitus chr onic Osteoarthritis of right knee noneactive Left ankle strain acute Left ankle pain acute Abdominal pain chronic Essential (primary) hypertension chronic Type 2 diabetes mellitus chr onic Chest pain acute History of coronary artery disease acute History of hypertension acut e [facility] Work Phone: Evaluation note* Diagnosis Onset Date Resolution Status Memory changes acute Epilepsy, unspecified, not i ntractable, without status epilepticus chronic Memory loss acute Epilepsy, unspecified, not i ntractable, without status epilepticus chronic Right hip pain acute Essential (primary) hypertension chronic Type 2 diabetes mellitus chr onic Osteoarthritis of right knee noneactive Left ankle strain acute Left ankle pain acute Abdominal pain chronic Essential (primary) hypertension chronic Type 2 diabetes mellitus chr onic Chest pain acute History of coronary artery disease acute History of hypertension acut e Essential (primary) hypertension chronic History of coronary artery stent placement March 222017 chronic Hyperlipidemia chronic [facility] Work Phone: Evaluation note* Diagnosis Onset Date Resolution Status Memory loss acute Epilepsy, unspecified, not i ntractable, without status epilepticus chronic Right hip pain acute Essential (primary) hypertension chronic Type 2 diabetes mellitus chr onic Osteoarthritis of right knee noneactive Left ankle strain acute Left ankle pain acute Abdominal pain chronic Essential (primary) hypertension chronic Type 2 diabetes mellitus chr onic Chest pain acute History of coronary artery disease acute History of hypertension acut e Essential (primary) hypertension chronic History of coronary artery stent placement March 222017 chronic Hyperlipidemia chronic [facility] Work Phone: Evaluation note* Diagnosis Coronary artery disease due to calcified coronary lesion- Primary Atherosclerotic heart disease of [place] coronary artery without angina pectoris [facility] Diagnosis CAD in [place] artery- Primary Preoperative clearance Unspecified pre-operative examination Atherosclerotic heart disease of [place] coronary artery without angina pectoris documented in this encounter [employer] [facility]* Diagnosis Preoperative clearance Unspecified pre-operative examination Atherosclerotic heart disease of [place] coronary artery without angina pectoris [facility]* Diagnosis Coronary artery disease due to calcified coronary lesion- Primary documented in this encounter [employer] [facility] [facility]* Diagnosis CAD in [place] artery- Primary CAD in [place] artery Coronary artery disease involving coronary bypass graft, unspecified whether angina present, unspecified whether [place] or transplanted heart S/P CABG (coronary artery bypass graft) Postsurgical aortocoronary bypass status documented in this encounter [employer] [facility] [facility]* Diagnosis Onset Date Resolution Status Memory loss acute Epilepsy, unspecified, not i ntractable, without status epilepticus chronic Right hip pain acute Essential (primary) hypertension chronic Type 2 diabetes mellitus chr onic Osteoarthritis of right knee noneactive Left ankle strain acute Left ankle pain acute Abdominal pain chronic Essential (primary) hypertension chronic Type 2 diabetes mellitus chr onic Essential (primary) hypertension chronic Hyperlipidemia chronic Chest pain resolved Coronary artery disease acut e Debility acute Diabetes acute GERD (gastroesophageal reflux disease) acute History of coronary artery bypass graft x 3 acute Osteoporosis acute Rheumatoid arthritis acute Stroke acute Hyperlipidemia chronic Hypertension chronic [facility] Work Phone: Evaluation note* Diagnosis S/P CABG (coronary artery bypass graft)- Primary Postsurgical aortocoronary bypass status [facility] [facility]* Diagnosis Onset Date Resolution Status Left ankle strain acute Left ankle pain acute Abdominal pain chronic Essential (primary) hypertension chronic Type 2 diabetes mellitus chr onic Essential (primary) hypertension chronic Hyperlipidemia chronic Chest pain resolved Coronary artery disease acut e Debility acute Diabetes acute GERD (gastroesophageal reflux disease) acute History of coronary artery bypass graft x 3 acute Osteoporosis acute Rheumatoid arthritis acute Hyperlipidemia chronic Hypertension chronic Stroke resolved Anemia acute Flu vaccine need acute History of coronary artery bypass graft x 3 acute Lower extremity edema acute Hypertension chronic Fatigue acute Epilepsy, unspecified, not i ntractable, without status epilepticus chronic Dyspnea on exertion acute Fatigue acute History of coronary artery bypass graft acute Tachycardia acute Essential (primary) hypertension chronic Hyperlipidemia chronic [facility] Work Phone: Evaluation note* Diagnosis Onset Date Resolution Status Left ankle pain acute Abdominal pain chronic Essential (primary) hypertension chronic Type 2 diabetes mellitus chr onic Essential (primary) hypertension chronic Hyperlipidemia chronic Chest pain resolved Coronary artery disease acut e Debility acute Diabetes acute GERD (gastroesophageal reflux disease) acute History of coronary artery bypass graft x 3 acute Rheumatoid arthritis acute Hyperlipidemia chronic Hypertension chronic Osteoporosis chronic Stroke resolved Anemia acute Flu vaccine need acute History of coronary artery bypass graft x 3 acute Lower extremity edema acute Hypertension chronic Fatigue acute Epilepsy, unspecified, not i ntractable, without status epilepticus chronic Fatigue acute Tachycardia acute Dyspnea on exertion chronic Essential (primary) hypertension chronic History of coronary artery bypass graft chronic Hyperlipidemia chronic Fatigue acute History of coronary artery bypass graft x 3 acute Essential (primary) hypertension chronic Osteoporosis chronic Type 2 diabetes mellitus chr onic Dyspnea on exertion chronic History of coronary artery bypass graft chronic Hyperlipidemia chronic Hypertension chronic [facility] Work Phone: Evaluation note* Diagnosis Onset Date Resolution Status Anemia acute Flu vaccine need acute History of coronary artery bypass graft x 3 acute Lower extremity edema acute Hypertension chronic Fatigue acute Epilepsy, unspecified, not i ntractable, without status epilepticus chronic Fatigue acute Tachycardia acute Dyspnea on exertion chronic Essential (primary) hypertension chronic History of coronary artery bypass graft chronic Hyperlipidemia chronic Fatigue acute History of coronary artery bypass graft x 3 acute Essential (primary) hypertension chronic Osteoporosis chronic Type 2 diabetes mellitus chr onic Dyspnea on exertion chronic History of coronary artery bypass graft chronic Hyperlipidemia chronic Hypertension chronic Fatigue acute Fatigue acute Osteoarthritis of right knee noneactive [facility] Work Phone: Evaluation note* Diagnosis Onset Date Resolution Status Fatigue acute History of coronary artery bypass graft x 3 acute Essential (primary) hypertension chronic Osteoporosis chronic Type 2 diabetes mellitus chr onic Dyspnea on exertion chronic History of coronary artery bypass graft chronic Hyperlipidemia chronic Hypertension chronic Fatigue acute Fatigue acute Osteoarthritis of right knee noneactive History of coronary artery bypass graft chronic Obesity chronic Obstructive sleep apnea 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 Chest wall tenderness chroni c Coronary artery disease 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 Essential (primary) hypertension chronic GERD (gastroesophageal reflux disease) chronic Osteoporosis chronic Rheumatoid arthritis chronic Type 2 diabetes mellitus chr onic [facility] Work Phone: Evaluation note* Diagnosis Onset Date Resolution Status Fatigue acute Fatigue acute Osteoarthritis of right knee noneactive History of coronary artery bypass graft chronic Obesity chronic Obstructive sleep apnea 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 Chest wall tenderness chroni c Coronary artery disease 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 Essential (primary) hypertension chronic GERD (gastroesophageal reflux disease) chronic Osteoporosis chronic Rheumatoid arthritis chronic Type 2 diabetes mellitus chr onic Fatigue acute Abdominal pain chronic [facility] Work Phone: Evaluation note* Diagnosis Onset Date Resolution Status Fatigue acute Fatigue acute Osteoarthritis of right knee noneactive History of coronary artery bypass graft chronic Obesity chronic Obstructive sleep apnea 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 Chest wall tenderness chroni c Coronary artery disease 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 Essential (primary) hypertension chronic GERD (gastroesophageal reflux disease) chronic Osteoporosis chronic Rheumatoid arthritis chronic Type 2 diabetes mellitus chr onic Fatigue acute Abdominal pain chronic Abdominal pain chronic [facility] Work Phone: Evaluation note* Diagnosis Onset Date Resolution Status Fatigue acute Osteoarthritis of right knee noneactive History of coronary artery bypass graft chronic Obesity chronic Obstructive sleep apnea 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 Chest wall tenderness chroni c Coronary artery disease 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 Essential (primary) hypertension chronic GERD (gastroesophageal reflux disease) chronic Osteoporosis chronic Rheumatoid arthritis chronic Type 2 diabetes mellitus chr onic Fatigue acute Abdominal pain chronic Abdominal pain chronic [facility] Work Phone: Evaluation note* Diagnosis Onset Date Resolution Status Fatigue acute Osteoarthritis of right knee noneactive History of coronary artery bypass graft chronic Obesity chronic Obstructive sleep apnea 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 Chest wall tenderness chroni c Coronary artery disease 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 Essential (primary) hypertension chronic GERD (gastroesophageal reflux disease) chronic Osteoporosis chronic Rheumatoid arthritis chronic Type 2 diabetes mellitus chr onic Fatigue acute Abdominal pain chronic Abdominal pain chronic Osteoporosis chronic [facility] Work Phone: Hospital Discharge instructions Additional Instructions Discharge home 01/26/2023, pending appeal, [facility] PT/OT/SN, Front wheeled walker, bedside commode.[facility] Work Phone: Hospital Discharge instructions Additional Instructions EKG normal cardiac workup negative. Chest CT discussed with radiologist no concern for fracture. Follow-up with your doctor. Take medications as prescribed.[facility] Work Phone: Hospital Discharge instructions Additional Instructions Ice to your chest wall to decrease pain and bruising. The doctors saw you yesterday wrote for a narcotic pain medication which she can brick picker from the pharmacy and use. Pain. Follow-up with your doctor if not improving.[facility] Work Phone: Reason for referral (narrative)No reason for referral information [facility] Work [facility]: Summary Purpose Family History No Family History Records Found Relationship Condition Age at Onset Recorded Date/T edita Not Specified Malignant neoplasm of cervix Unknown Malignant neoplasm of colon Unknown Malignant neoplasm of breast Unknown grandmother Alcoholism Unknown Malignant neoplasm Unknown Arthritis Unknown mother Alcoholism Unknown Diabetes mellitus Unknown Unknown Hypertension Unknown grandfather Cardiac disease Unknown sister Disorder of thyroid Unknown Advance Directives No Advanced Directives Records Found Advance Directive Response Recorded Date/ Time Advance Directives No September 26 1 1:14pm Living Will No October 25, 2021 2:03pm Power of Dining Room Supervisor No October 25 2 2:03pm Advance Directive Response Recorded Date/ Time Name of Medical Power of Dining Room Supervisor bhupinder barakat November 28, 2021 7:50pm Advance Directives No September 26 1 1:14pm Living Will Yes November 28, 2021 7:50pm Power of Dining Room Supervisor Yes November 28 2 7:50pm Advance Directive Response Recorded Date/ Time Name of Medical Power of Dining Room Supervisor bhupinder barakat November 28, 2021 7:50pm Advance Directives No September 26 1 1:14pm Living Will No December 17 2 3:55am Power of Dining Room Supervisor No December 17 022 3:55am Advance Directive Response Recorded Date/ Time Name of Medical Power of Dining Room Supervisor bhupinder barakat November 28, 2021 7:50pm Name of Medical Power of Dining Room Supervisor bhupinder barakat January 02, 2022 12:50pm Advance Directives No September 26 1 1:14pm Living Will Yes January 02 022 12:50pm Power of Dining Room Supervisor Yes Angelique 1st, 2022 12:50pm Advance Directive Response Recorded Date/ Time Name of Medical Power of Dining Room Supervisor bhupinder barakat November 28, 2021 6:50pm Name of Medical Power of Dining Room Supervisor bhupinder barakat January 02, 2022 11:50am Advance Directives No September 26 12:14pm Living Will No March 14 5:43pm Power of Dining Room Supervisor No March 14, 2022 5:43pm Advance Directive Response Recorded Date/ Time Name of Medical Power of Dining Room Supervisor bhupinder barakat January 02, 2022 11:50am Advance Directives No September 26 12:14pm Living Will No March 29 10:41am Power of Dining Room Supervisor No March 29, 2022 10:41am Advance Directive Response Recorded Date/ Time Advance Directives No September 26 12:14pm Living Will No March 29 10:41am Power of Dining Room Supervisor No March 29, 2022 10:41am Advance Directive Response Recorded Date/ Time Name of Medical Power of Dining Room Supervisor BHUPINDER MARTÍNEZ June 06, 2022 10:51am Advance Directives No September 26 12:14pm Living Will No June 07 6:10pm Power of Dining Room Supervisor No June 07, 2022 6:10pm Advance Directive Response Recorded Date/ Time Name of Medical Power of Dining Room Supervisor BHUPINDER MARTÍNEZ June 06, 2022 11:51am Name of Medical Power of Dining Room Supervisor Duke Barakat August 13, 2022 10:00pm Advance Directives No September 26 1:14pm Living Will Yes August 13, 2022 10:00pm Power of Dining Room Supervisor Yes August 13 10:00pm Advance Directive Response Recorded Date/ Time Name of Medical Power of Dining Room Supervisor Duke Barakat August 13, 2022 10:00pm Advance Directives No September 26 1:14pm Living Will Yes August 13, 2022 10:00pm Power of Dining Room Supervisor Yes August 13 10:00pm Advance Directive Response Recorded Date/ Time Name of Medical Power of Dining Room Supervisor Duke Barakat August 13, 2022 10:00pm Advance Directives No December 31, 2020 12:33pm Living Will Yes August 13, 2022 10:00pm Power of Dining Room Supervisor Yes August 13 10:00pm Advance Directive Response Recorded Date/ Time Name of Medical Power of Dining Room Supervisor BHUPINDER SENIOR December 18, 2022 5:26am Advance Directives No December 31, 2020 12:33pm Living Will Yes December 18 5:26am Power of Dining Room Supervisor Yes December 18 023 5:26am Advance Directive Response Recorded Date/ Time Name of Medical Power of Dining Room Supervisor BHUPINDER SENIOR December 18, 2022 5:26am Advance Directives No December 31, 2020 12:33pm Living Will Yes December 18 10:41am Power of Dining Room Supervisor No December 18 023 10:41am Latest Code Status on File Code Status Date Activated Date Inactivated Comments Full Code 01/01/2023 5:45 AM Latest Code Status on File Code Status Date Activated Date Inactivated Comments Full Code 01/01/2023 5:45 AM 01/11/2023 4:53 PM Healthcare Agents on File Name Relationship Healthcare Agent Relationshi p Communication Bhupinder Ascencio [facility] Care Agent Advance Directive Response Recorded Date/ Time Name of Medical Power of Dining Room Supervisor BHUPINDER SENIOR December 18, 2022 5:26am Name of Medical Power of Dining Room Supervisor Bhupinder Starkeyyvette January 13, 2023 2:24pm Advance Directives No December 31, 2020 12:33pm Living Will Yes January 13, 2023 2:24pm Power of Dining Room Supervisor Yes January 2:24pm Documents on File Type Date Recorded Patient Search Analyst Expl anation Advance Directives and Livin g Will 01/12/2023 1:40 PM Latest Code Status on File Code Status Date Activated Date Inactivated Comments Full Code 01/01/2023 5:45 AM 01/11/2023 4:53 PM Healthcare Agents on File Name Relationship Healthcare Agent Relationshi p Communication Bhupinder Ascencio Health Care Agent Advance Directive Response Recorded Date/ Time Advance Directives No February 02, 2023 11:35am Living Will Yes February 02 11:35am Power of Dining Room Supervisor Yes February 02 11:35am Name of Medical Power of Dining Room Supervisor BHUPINDER SENIOR December 18, 2022 5:26am Name of Medical Power of Dining Room Supervisor Bhupinder Starkey, n iece January 13, 2023 2:24pm Advance Directive Response Recorded Date/ Time Advance Directives No February 02, 2023 10:35am Living Will Yes February 02 10:35am Power of Dining Room Supervisor Yes February 02 10:35am Name of Medical Power of Dining Room Supervisor BHUPINDER SENIOR December 18, 2022 4:26am Name of Medical Power of Dining Room Supervisor Bhupinder Starkey, n iece January 13, 2023 1:24pm Advance Directive Response Recorded Date/ Time Advance Directives No February 02, 2023 10:35am Living Will Yes February 02 10:35am Power of Dining Room Supervisor Yes February 02 10:35am Advance Directive Response Recorded Date/ Time Advance Directives on File No 2023 9:39am Advance Directives No February 02, 2023 10:35am Living Will Yes June 01 9:57am Power of Dining Room Supervisor Yes June 01, 2023 9:39am Advance Directive Response Recorded Date/ Time Advance Directives on File No 2023 10:39am Advance Directives No February 02, 2023 11:35am Living Will Yes June 01 10:57am Power of Dining Room Supervisor Yes June 01, 2023 10:39am Advance Directive Response Recorded Date/ Time Living Will Yes February 02 11:35am Power of Dining Room Supervisor Yes February 02 11:35am Living Will Yes November 15, 2023 3:30pm Power of Dining Room Supervisor No November 14 3:30pm Living Will No July 14, 2024 5:08pm Power of Dining Room Supervisor No July 14 5:08pm Advance Directives No February 02, 2023 11:35am Advance Directive Response Recorded Date/ Time Living Will Yes February 02 11:35am Power of Dining Room Supervisor Yes February 02 11:35am Living Will Yes November 15, 2023 3:30pm Power of Dining Room Supervisor No November 14 3:30pm Living Will No July 14, 2024 5:08pm Power of Dining Room Supervisor No July 14 5:08pm Living Will No July 15, 2024 1:25pm Power of Dining Room Supervisor No July 15 1:25pm Advance Directives No February 02, 2023 11:35am Advance Directive Response Recorded Date/ Time Living Will Yes November 15, 2023 3:30pm Do you have a Healthcare Power of Dining Room Supervisor? No November 15, 2023 3:30pm Living Will No July 14, 2024 5:08pm Do you have a Healthcare Power of Dining Room Supervisor? No July 14, 2024 5:08pm Living Will No July 15, 2024 1:25pm Do you have a Healthcare Power of Dining Room Supervisor? No July 15, 2024 1:25pm Do you have a Healthcare Power of Dining Room Supervisor? No September 16, 2024 3:51pm Advance Directives No February 02, 2023 11:35am Advance Directive Response Recorded Date/ Time Living Will No July 14, 2024 5:08pm Do you have a Healthcare Power of Dining Room Supervisor? No July 14, 2024 5:08pm Living Will No July 15, 2024 1:25pm Do you have a Healthcare Power of Dining Room Supervisor? No July 15, 2024 1:25pm Do you have a Healthcare Power of Dining Room Supervisor? No September 16, 2024 3:51pm Advance Directives No February 02, 2023 11:35am Chief Complaint and Reason for Visit Chief Complaint prolia shot FOLLOW UP/SEIZURES LBP/ RX HERE 3 M FU CP,HEADACHE,ABD PAIN Reason for Visit Osteoporosis Cerebrovascular disease Epilepsy, unspecified, not intractable, without status epilepticus Occipital neuralgia Cerebrovascular disease Epilepsy, unspecified, not intractable, without status epilepticus Occipital neuralgia Chief Complaint 3 M FU CP,HEADACHE,ABD PAIN 1 Y FU PHYSICAL R ARM Reason for Visit Cerebrovascular dise ase Epilepsy, unspecified, not intractable, without status epilepticus Occipital neuralgia BMI 32.0-32.9,adult LINA (obstructive sleep apnea) Health care maintenance Right shoulder pain Essential (primary) hypertension Seizures Type 2 diabetes mellitus Chief Complaint 3 M FU CP,HEADACHE,ABD PAIN 1 Y FU PHYSICAL R ARM RT ARM PAIN Reason for Visit Cerebrovascular dise ase Epilepsy, unspecified, not intractable, without status epilepticus Occipital neuralgia BMI 32.0-32.9,adult LINA (obstructive sleep apnea) Health care maintenance Right shoulder pain Essential (primary) hypertension Seizures Type 2 diabetes mellitus Chief Complaint 3 M FU CP,HEADACHE,ABD PAIN 1 Y FU PHYSICAL R ARM RT ARM PAIN SCREENING general illness Reason for Visit Cerebrovascular dise ase Epilepsy, unspecified, not intractable, without status epilepticus Occipital neuralgia BMI 32.0-32.9,adult LINA (obstructive sleep apnea) Health care maintenance Right shoulder pain Essential (primary) hypertension Seizures Type 2 diabetes mellitus Chief Complaint 3 M FU CP,HEADACHE,ABD PAIN 1 Y FU PHYSICAL R ARM RT ARM PAIN SCREENING general illness [facility] ER FU CHEST PAIN CHEST PAIN CHEST PAIN Reason for Visit Cerebrovascular dise ase Epilepsy, unspecified, not intractable, without status epilepticus Occipital neuralgia BMI 32.0-32.9,adult LINA (obstructive sleep apnea) Health care maintenance Right shoulder pain Essential (primary) hypertension Seizures Type 2 diabetes mellitus Cough Chest pain Intractable pain Neck pain Chief Complaint 3 M FU CP,HEADACHE,ABD PAIN 1 Y FU PHYSICAL R ARM RT ARM PAIN SCREENING general illness [facility] ER FU CHEST PAIN CHEST PAIN CHEST PAIN CHEST PAIN [facility] FU 1 Y FU Reason for Visit Cerebrovascular dise ase Epilepsy, unspecified, not intractable, without status epilepticus Occipital neuralgia BMI 32.0-32.9,adult LINA (obstructive sleep apnea) Health care maintenance Right shoulder pain Essential (primary) hypertension Seizures Type 2 diabetes mellitus Cough Chest pain Intractable pain Neck pain Cervical radiculopathy Left shoulder pain Neck pain Left upper extremity numbness Essential (primary) hypertension History of coronary artery stent placement Hyperlipidemia Chief Complaint 1 Y FU PHYSICAL R ARM RT ARM PAIN SCREENING general illness [facility] ER FU CHEST PAIN CHEST PAIN CHEST PAIN CHEST PAIN CHEST PAIN [facility] FU 1 Y FU CERVICAL RADICULOPATHY. RX HERE Reason for Visit BMI 32.0-32.9,adult LINA (obstructive sleep apnea) Health care maintenance Right shoulder pain Essential (primary) hypertension Seizures Type 2 diabetes mellitus Cough Chest pain Intractable pain Neck pain Cervical radiculopathy Left shoulder pain Neck pain Left upper extremity numbness Essential (primary) hypertension History of coronary artery stent placement Hyperlipidemia Chief Complaint R ARM RT ARM PAIN SCREENING general illness [facility] ER FU CHEST PAIN CHEST PAIN CHEST PAIN CHEST PAIN CHEST PAIN [facility] FU 1 Y FU CERVICAL RADICULOPATHY. RX HERE 4 M FU SEIZURE Reason for Visit Cough Chest pain Intractable pain Neck pain Cervical radiculopathy Left shoulder pain Neck pain Left upper extremity numbness Essential (primary) hypertension History of coronary artery stent placement Hyperlipidemia Obesity LINA (obstructive sleep apnea) Chief Complaint RT ARM PAIN SCREENING general illness [facility] ER FU CHEST PAIN CHEST PAIN CHEST PAIN CHEST PAIN CHEST PAIN [facility] FU 1 Y FU CERVICAL RADICULOPATHY. RX HERE 4 M FU SEIZURE FALL Reason for Visit Cough Chest pain Intractable pain Neck pain Cervical radiculopathy Left shoulder pain Neck pain Left upper extremity numbness Essential (primary) hypertension History of coronary artery stent placement Hyperlipidemia Obesity LINA (obstructive sleep apnea) Chief Complaint CERVICAL RADICULOPAT HY. RX HERE 4 M FU SEIZURE FALL [facility] ER FU Wants Covid Test LABSPEC Reason for Visit Obesity LNIA (obstructive sleep apnea) Seizures Exposure to COVID-19 virus Chief Complaint CERVICAL RADICULOPAT HY. RX HERE 4 M FU SEIZURE FALL [facility] ER FU Wants Covid Test LABSPEC seizure RIB PAIN Reason for Visit Obesity LINA (obstructive sleep apnea) Seizures Exposure to COVID-19 virus Chief Complaint Wants Covid Test LABSPEC seizure RIB PAIN ER f/u FU Prolia Seizure Reason for Visit Exposure to COVID-19 virus Pain in left upper arm Essential (primary) hypertension Seizures Type 2 diabetes mellitus Osteoporosis Chief Complaint FU Prolia Seizure seizures FOLLOW UP 3 M FU EORDER- RIGHT HIP- Right groin pain Reason for Visit Pain in left upper a rm Essential (primary) hypertension Type 2 diabetes mellitus Osteoporosis Memory changes Epilepsy, unspecified, not intractable, without status epilepticus Memory loss Epilepsy, unspecified, not intractable, without status epilepticus Right hip pain Essential (primary) hypertension Type 2 diabetes mellitus Chief Complaint Seizure seizures FOLLOW UP 3 M FU EORDER- RIGHT HIP- Right groin pain RIGHT KNEE room 3 Reason for Visit Memory changes Epilepsy, unspecified, not intractable, without status epilepticus Memory loss Epilepsy, unspecified, not intractable, without status epilepticus Right hip pain Essential (primary) hypertension Type 2 diabetes mellitus Osteoarthritis of right knee Chief Complaint seizures FOLLOW UP 3 M FU EORDER- RIGHT HIP- Right groin pain RIGHT KNEE room 3 RIGHT ANKLE PAIN/SWELLING/UNK MECK INJ XRAY Left ankle swollen concerns ABDOMINAL PAIN CHEST PAIN, HX CAD Reason for Visit Memory changes Epilepsy, unspecified, not intractable, without status epilepticus Memory loss Epilepsy, unspecified, not intractable, without status epilepticus Right hip pain Essential (primary) hypertension Type 2 diabetes mellitus Osteoarthritis of right knee Left ankle strain Left ankle pain Abdominal pain Essential (primary) hypertension Type 2 diabetes mellitus Chest pain History of coronary artery disease History of hypertension Chief Complaint seizures FOLLOW UP 3 M FU EORDER- RIGHT HIP- Right groin pain RIGHT KNEE room 3 RIGHT ANKLE PAIN/SWELLING/UNK MECK INJ XRAY Left ankle swollen concerns ABDOMINAL PAIN CHEST PAIN, HX CAD CHEST PAIN, HX CAD CHEST PAIN, HX CAD CHEST PAIN, HX CAD Reason for Visit Memory changes Epilepsy, unspecified, not intractable, without status epilepticus Memory loss Epilepsy, unspecified, not intractable, without status epilepticus Right hip pain Essential (primary) hypertension Type 2 diabetes mellitus Osteoarthritis of right knee Left ankle strain Left ankle pain Abdominal pain Essential (primary) hypertension Type 2 diabetes mellitus Chest pain History of coronary artery disease History of hypertension Essential (primary) hypertension History of coronary artery stent placement Hyperlipidemia Chief Complaint FOLLOW UP 3 M FU EORDER- RIGHT HIP- Right groin pain RIGHT KNEE room 3 RIGHT ANKLE PAIN/SWELLING/UNK MECK INJ XRAY Left ankle swollen concerns ABDOMINAL PAIN CHEST PAIN, HX CAD CHEST PAIN, HX CAD CHEST PAIN, HX CAD CHEST PAIN, HX CAD Reason for Visit Memory loss Epilepsy, unspecified, not intractable, without status epilepticus Right hip pain Essential (primary) hypertension Type 2 diabetes mellitus Osteoarthritis of right knee Left ankle strain Left ankle pain Abdominal pain Essential (primary) hypertension Type 2 diabetes mellitus Chest pain History of coronary artery disease History of hypertension Essential (primary) hypertension History of coronary artery stent placement Hyperlipidemia Chief Complaint FOLLOW UP 3 M FU EORDER- RIGHT HIP- Right groin pain RIGHT KNEE room 3 RIGHT ANKLE PAIN/SWELLING/UNK MECK INJ XRAY Left ankle swollen concerns ABDOMINAL PAIN CHEST PAIN, HX CAD CHEST PAIN, HX CAD CHEST PAIN, HX CAD CHEST PAIN, HX CAD CABG X 3 Reason for Visit Memory loss Epilepsy, unspecified, not intractable, without status epilepticus Right hip pain Essential (primary) hypertension Type 2 diabetes mellitus Osteoarthritis of right knee Left ankle strain Left ankle pain Abdominal pain Essential (primary) hypertension Type 2 diabetes mellitus Essential (primary) hypertension Hyperlipidemia Chest pain Coronary artery disease Debility Diabetes GERD (gastroesophageal reflux disease) History of coronary artery bypass graft x 3 Osteoporosis Rheumatoid arthritis Stroke Hyperlipidemia Hypertension Chief Complaint RIGHT ANKLE PAIN/SWE LLING/UNK MECK INJ XRAY Left ankle swollen concerns ABDOMINAL PAIN CHEST PAIN, HX CAD CHEST PAIN, HX CAD CHEST PAIN, HX CAD CHEST PAIN, HX CAD CABG X 3 HEART SURGERY FU 4 M FU S/P SUMMA CABG (SCANNED) EORDERS Reason for Visit Left ankle strain Left ankle pain Abdominal pain Essential (primary) hypertension Type 2 diabetes mellitus Essential (primary) hypertension Hyperlipidemia Chest pain Coronary artery disease Debility Diabetes GERD (gastroesophageal reflux disease) History of coronary artery bypass graft x 3 Osteoporosis Rheumatoid arthritis Hyperlipidemia Hypertension Stroke Anemia Flu vaccine need History of coronary artery bypass graft x 3 Lower extremity edema Hypertension Fatigue Epilepsy, unspecified, not intractable, without status epilepticus Dyspnea on exertion Fatigue History of coronary artery bypass graft Tachycardia Essential (primary) hypertension Hyperlipidemia Chief Complaint Left ankle swollen c oncerns ABDOMINAL PAIN CHEST PAIN, HX CAD CHEST PAIN, HX CAD CHEST PAIN, HX CAD CHEST PAIN, HX CAD CABG X 3 HEART SURGERY FU 4 M FU S/P SUMMA CABG (SCANNED) EORDERS B12 INJECTION 3 M FU 4 W FU EORDER Reason for Visit Left ankle pain Abdominal pain Essential (primary) hypertension Type 2 diabetes mellitus Essential (primary) hypertension Hyperlipidemia Chest pain Coronary artery disease Debility Diabetes GERD (gastroesophageal reflux disease) History of coronary artery bypass graft x 3 Rheumatoid arthritis Hyperlipidemia Hypertension Osteoporosis Stroke Anemia Flu vaccine need History of coronary artery bypass graft x 3 Lower extremity edema Hypertension Fatigue Epilepsy, unspecified, not intractable, without status epilepticus Fatigue Tachycardia Dyspnea on exertion Essential (primary) hypertension History of coronary artery bypass graft Hyperlipidemia Fatigue History of coronary artery bypass graft x 3 Essential (primary) hypertension Osteoporosis Type 2 diabetes mellitus Dyspnea on exertion History of coronary artery bypass graft Hyperlipidemia Hypertension Chief Complaint HEART SURGERY FU 4 M FU S/P SUMMA CABG (SCANNED) EORDERS B12 INJECTION 3 M FU 4 W FU EORDER B12 inject B12 inject RIGHT KNEE SCREENING Reason for Visit Anemia Flu vaccine need History of coronary artery bypass graft x 3 Lower extremity edema Hypertension Fatigue Epilepsy, unspecified, not intractable, without status epilepticus Fatigue Tachycardia Dyspnea on exertion Essential (primary) hypertension History of coronary artery bypass graft Hyperlipidemia Fatigue History of coronary artery bypass graft x 3 Essential (primary) hypertension Osteoporosis Type 2 diabetes mellitus Dyspnea on exertion History of coronary artery bypass graft Hyperlipidemia Hypertension Fatigue Fatigue Osteoarthritis of right knee Chief Complaint HEART SURGERY FU 4 M FU S/P SUMMA CABG (SCANNED) EORDERS B12 INJECTION 3 M FU 4 W FU EORDER B12 inject B12 inject RIGHT KNEE SCREENING CABG Reason for Visit Anemia Flu vaccine need History of coronary artery bypass graft x 3 Lower extremity edema Hypertension Fatigue Epilepsy, unspecified, not intractable, without status epilepticus Fatigue Tachycardia Dyspnea on exertion Essential (primary) hypertension History of coronary artery bypass graft Hyperlipidemia Fatigue History of coronary artery bypass graft x 3 Essential (primary) hypertension Osteoporosis Type 2 diabetes mellitus Dyspnea on exertion History of coronary artery bypass graft Hyperlipidemia Hypertension Fatigue Fatigue Osteoarthritis of right knee Chief Complaint B12 INJECTION 3 M FU 4 W FU EORDER B12 inject B12 inject RIGHT KNEE SCREENING CABG Follow up per Pcp 3 M FU CABG Reason for Visit Fatigue History of coronary artery bypass graft x 3 Essential (primary) hypertension Osteoporosis Type 2 diabetes mellitus Dyspnea on exertion History of coronary artery bypass graft Hyperlipidemia Hypertension Fatigue Fatigue Osteoarthritis of right knee History of coronary artery bypass graft Obesity Obstructive sleep apnea Chest wall tenderness Coronary artery disease Essential (primary) hypertension GERD (gastroesophageal reflux disease) Osteoporosis Rheumatoid arthritis Type 2 diabetes mellitus Chief Complaint B12 INJECTION 3 M FU 4 W FU EORDER B12 inject B12 inject RIGHT KNEE SCREENING CABG Follow up per Pcp 3 M FU LINA CABG Reason for Visit Fatigue History of coronary artery bypass graft x 3 Essential (primary) hypertension Osteoporosis Type 2 diabetes mellitus Dyspnea on exertion History of coronary artery bypass graft Hyperlipidemia Hypertension Fatigue Fatigue Osteoarthritis of right knee History of coronary artery bypass graft Obesity Obstructive sleep apnea Chest wall tenderness Coronary artery disease Essential (primary) hypertension GERD (gastroesophageal reflux disease) Osteoporosis Rheumatoid arthritis Type 2 diabetes mellitus Chief Complaint B12 inject B12 inject RIGHT KNEE SCREENING CABG Follow up per Pcp 3 M FU LINA CABG B12 inject OSTEO LINA STOMACH ISSUES NEEDS REFERRAL CABG Reason for Visit Fatigue Fatigue Osteoarthritis of right knee History of coronary artery bypass graft Obesity Obstructive sleep apnea Chest wall tenderness Coronary artery disease Essential (primary) hypertension GERD (gastroesophageal reflux disease) Osteoporosis Rheumatoid arthritis Type 2 diabetes mellitus Fatigue Abdominal pain Chief Complaint B12 inject B12 inject RIGHT KNEE SCREENING CABG Follow up per Pcp 3 M FU LINA CABG B12 inject OSTEO LINA STOMACH ISSUES NEEDS REFERRAL Abdominal pain CABG Reason for Visit Fatigue Fatigue Osteoarthritis of right knee History of coronary artery bypass graft Obesity Obstructive sleep apnea Chest wall tenderness Coronary artery disease Essential (primary) hypertension GERD (gastroesophageal reflux disease) Osteoporosis Rheumatoid arthritis Type 2 diabetes mellitus Fatigue Abdominal pain Abdominal pain Chief Complaint B12 inject RIGHT KNEE SCREENING CABG Follow up per Pcp 3 M FU LINA CABG B12 inject OSTEO LINA STOMACH ISSUES NEEDS REFERRAL Abdominal pain CABG CABG DIABETIC GASTROPARESIS Diarrhea Reason for Visit Fatigue Osteoarthritis of right knee History of coronary artery bypass graft Obesity Obstructive sleep apnea Chest wall tenderness Coronary artery disease Essential (primary) hypertension GERD (gastroesophageal reflux disease) Osteoporosis Rheumatoid arthritis Type 2 diabetes mellitus Fatigue Abdominal pain Abdominal pain Chief Complaint B12 inject RIGHT KNEE SCREENING CABG Follow up per Pcp 3 M FU LINA CABG B12 inject OSTEO LINA STOMACH ISSUES NEEDS REFERRAL Abdominal pain CABG DIABETIC GASTROPARESIS Diarrhea CABG prolia Reason for Visit Fatigue Osteoarthritis of right knee History of coronary artery bypass graft Obesity Obstructive sleep apnea Chest wall tenderness Coronary artery disease Essential (primary) hypertension GERD (gastroesophageal reflux disease) Osteoporosis Rheumatoid arthritis Type 2 diabetes mellitus Fatigue Abdominal pain Abdominal pain Osteoporosis Chief Complaint B12 inject RIGHT KNEE SCREENING CABG Follow up per Pcp 3 M FU LINA CABG B12 inject OSTEO LINA STOMACH ISSUES NEEDS REFERRAL Abdominal pain CABG DIABETIC GASTROPARESIS Diarrhea CABG pro[place] COPY PCP Reason for Visit Fatigue Osteoarthritis of right knee History of coronary artery bypass graft Obesity Obstructive sleep apnea Chest wall tenderness Coronary artery disease Essential (primary) hypertension GERD (gastroesophageal reflux disease) Osteoporosis Rheumatoid arthritis Type 2 diabetes mellitus Fatigue Abdominal pain Abdominal pain Osteoporosis Chief Complaint Admit Date 1 Y FU April 19, 2024 10:14am R09.02 - Hypoxemia April 20, 2024 12:15pm B12 inject April 21, 2024 10:44am R09.02 - Hypoxemia April 25, 2024 11:03am 4 M FU May 16, 2024 9 :36am 2 DRS/ 2 ORDERS May 16, 2024 1 0:49am 3 M May 20, 2024 9 :26am SCREENING June 07, 2024 1 0:37am PAIN- COPY PCP June 22, 2024 10:53am B12 inject July 05, 2024 10:4 4am CP July 14, 2024 4:1 7pm Reason for Visit Admit Date Coronary artery disease April 19, 2 024 10:14am Hyperlipidemia April 19, 2024 10:14am Hypertension April 19, 2024 10:14am Fatigue April 21, 2024 10:44am Epilepsy, unspecified, not i ntractable, without status epilepticus May 16, 2024 9:36am Fatigue May 16, 2024 9 :36am Vertigo May 20, 2024 9 :26am Essential (primary) hypertension May 20, 2024 9:26am GERD (gastroesophageal reflux disease) J anuary 2024 9:26am Left ankle pain May 20, 2024 9 :26am Type 2 diabetes mellitus May 20, 2 025 9:26am Fatigue July 05, 2024 10:4 4am Chief Complaint Admit Date 1 Y FU April 19, 2024 10:14am R09.02 - Hypoxemia April 20, 2024 12:15pm B12 inject April 21, 2024 10:44am R09.02 - Hypoxemia April 25, 2024 11:03am 4 M FU May 16, 2024 9 :36am 2 DRS/ 2 ORDERS May 16, 2024 1 0:49am 3 M May 20, 2024 9 :26am SCREENING June 07, 2024 1 0:37am PAIN- COPY PCP June 22, 2024 10:53am B12 inject July 05, 2024 10:4 4am CP July 14, 2024 4:1 7pm PAIN July 15, 2024 12: 11pm Chief Complaint Admit Date 3 M May 20, 2024 9 :26am SCREENING June 07, 2024 1 0:37am PAIN- COPY PCP June 22, 2024 10:53am B12 inject July 05, 2024 10:4 4am CP July 14, 2024 4:1 7pm PAIN July 15, 2024 12: 11pm 3 M FU/Prolia August 10, 2024 10:3 7am CHEST PAIN September 16, 2024 3:07p m Reason for Visit Admit Date Vertigo May 20, 2024 9 :26am Essential (primary) hypertension May 20, 2024 9:26am GERD (gastroesophageal reflux disease) J anuary 2024 9:26am Left ankle pain May 20, 2024 9 :26am Type 2 diabetes mellitus May 20, 2 025 9:26am Fatigue July 05, 2024 10:4 4am Essential (primary) hypertension August 102024 10:37am Osteoporosis August 10, 2024 10:3 7am Rheumatoid arthritis August 10, 2024 10: 37am Type 2 diabetes mellitus August 10, 2024 10:37am Chief Complaint Admit Date SCREENING June 07, 2024 1 0:37am PAIN- COPY PCP June 22, 2024 10:53am B12 inject July 05, 2024 10:4 4am CP July 14, 2024 4:1 7pm PAIN July 15, 2024 12: 11pm 3 M FU/Prolia August 10, 2024 10:3 7am CHEST PAIN September 16, 2024 3:07p m Chest soreness 2 years post CABG September 8:51am Reason for Visit Admit Date Fatigue July 05, 2024 10:4 4am Essential (primary) hypertension August 102024 10:37am Osteoporosis August 10, 2024 10:3 7am Rheumatoid arthritis August 10, 2024 10: 37am Type 2 diabetes mellitus August 10, 2024 10:37am Chief Complaint Admit Date SCREENING June 07, 2024 1 0:37am PAIN- COPY PCP June 22, 2024 10:53am B12 inject July 05, 2024 10:4 4am CP July 14, 2024 4:1 7pm PAIN July 15, 2024 12: 11pm 3 M FU/Prolia August 10, 2024 10:3 7am CHEST PAIN September 16, 2024 3:07p m Chest soreness 2 years post CABG September 8:51am HOSP FU September 21, 2024 10:36 am Reason for Visit Admit Date Fatigue July 05, 2024 10:4 4am Essential (primary) hypertension August 102024 10:37am Osteoporosis August 10, 2024 10:3 7am Rheumatoid arthritis August 10, 2024 10: 37am Type 2 diabetes mellitus August 10, 2024 10:37am Anemia September 19, 2024 8:51a m Peripheral edema September 19, 2024 8:51a m Atherosclerotic heart diseas e of [place] coronary artery without angina pectoris September 19, 2024 8:51am Chest wall tenderness September 19, 2024 8:5 1am Chronic diastolic CHF (congestive heart failure) September 19, 2024 8:51am Essential (primary) hypertension September 8:51am History of coronary artery bypass graft September 19, 2024 8:51am Hyperlipidemia September 19, 2024 8:51a m Reason for Visit Admit Date Fatigue July 05, 2024 10:4 4am Essential (primary) hypertension August 102024 10:37am Osteoporosis August 10, 2024 10:3 7am Rheumatoid arthritis August 10, 2024 10: 37am Type 2 diabetes mellitus August 10, 2024 10:37am Anemia September 19, 2024 8:51a m Atherosclerotic heart diseas e of [place] coronary artery without angina pectoris September 19, 2024 8:51am Chest wall tenderness September 19, 2024 8:5 1am Chronic diastolic CHF (congestive heart failure) September 19, 2024 8:51am Essential (primary) hypertension September 8:51am History of coronary artery bypass graft September 19, 2024 8:51am Hyperlipidemia September 19, 2024 8:51a m Peripheral edema September 19, 2024 8:51a m Essential (primary) hypertension September 10:36am Keloid scar of skin September 21, 2024 10:36 am Rheumatoid arthritis September 21, 2024 10:3 6am Peripheral edema September 21, 2024 10:36 am Chief Complaint Admit Date SCREENING June 07, 2024 1 0:37am PAIN- COPY PCP June 22, 2024 10:53am B12 inject July 05, 2024 10:4 4am CP July 14, 2024 4:1 7pm PAIN July 15, 2024 12: 11pm 3 M FU/Prolia August 10, 2024 10:3 7am CHEST PAIN September 16, 2024 3:07p m Chest soreness 2 years post CABG September 8:51am HOSP FU September 21, 2024 10:36 am 8 m fu September 28, 2024 12:32 pm Chief Complaint Admit Date SCREENING June 07, 2024 1 0:37am PAIN- COPY PCP June 22, 2024 10:53am B12 inject July 05, 2024 10:4 4am CP July 14, 2024 4:1 7pm PAIN July 15, 2024 12: 11pm 3 M FU/Prolia August 10, 2024 10:3 7am CHEST PAIN September 16, 2024 3:07p m Chest soreness 2 years post CABG September 8:51am HOSP FU September 21, 2024 10:36 am 8 m fu September 28, 2024 12:32 pm B12 October 03, 2024 11:04 am Reason for Visit Admit Date Fatigue July 05, 2024 10:4 4am Essential (primary) hypertension August 102024 10:37am Osteoporosis August 10, 2024 10:3 7am Rheumatoid arthritis August 10, 2024 10: 37am Type 2 diabetes mellitus August 10, 2024 10:37am Anemia September 19, 2024 8:51a m Atherosclerotic heart diseas e of [place] coronary artery without angina pectoris September 19, 2024 8:51am Chest wall tenderness September 19, 2024 8:5 1am Chronic diastolic CHF (congestive heart failure) September 19, 2024 8:51am Essential (primary) hypertension September 8:51am History of coronary artery bypass graft September 19, 2024 8:51am Hyperlipidemia September 19, 2024 8:51a m Peripheral edema September 19, 2024 8:51a m Essential (primary) hypertension September 10:36am Keloid scar of skin September 21, 2024 10:36 am Rheumatoid arthritis September 21, 2024 10:3 6am Peripheral edema September 21, 2024 10:36 am Obesity September 28, 2024 12:32 pm LINA (obstructive sleep apnea) September 28, 2024 12:32pm Fatigue October 03, 2024 11:04 am Reason for Referral Specialty Diagnoses / Procedures Referred By Contac t Referred To Contact Diagnoses S/P CABG (coronary artery bypass graft) Kassy Tabares, NET DEVELOPER PROGRAMMER - AROMATHERAPIST [address] [address] Referral ID Status Reason Start Date Expiration Date Visits Re quested Visits Authorized [id number] Closed 1 1 Additional Source Comments INFORMATION SOURCE (unrecogn ized section and content) DATE CREATED AUTHOR 10/27/2017 [facility] DATE CREATED AUTHOR AUTHOR'S ORGANIZ ATION 10/27/2017 [facility] DATE CREATED AUTHOR AUTHOR'S ORGANIZ ATION 06/21/2018 [facility] DATE CREATED AUTHOR AUTHOR'S ORGANIZ ATION 01/07/2023 [facility] DATE CREATED AUTHOR AUTHOR'S ORGANIZ ATION 10/10/2024 [place] [facility] Goals (unrecognized section and content) Goals may be documented in a n alternate sectionGoals may be documented in an alternate sectionGoals may be documented in an alternate sectionGoals may be documented in an alternate sectionGoals may be documented in an alternate sectionGoals may be documented in an alternate sectionGoals may be documented in an alternate sectionGoals may be documented in an alternate sectionGoals may be documented in an alternate sectionGoals may be documented in an alternate sectionGoals may be documented in an alternate sectionGoals may be documented in an alternate sectionGoals may be documented in an alternate sectionGoals may be documented in an alternate sectionGoals may be documented in an alternate sectionGoals may be documented in an alternate sectionGoals may be documented in an alternate sectionGoals may be documented in an alternate sectionGoals may be documented in an alternate sectionGoals may be documented in an alternate sectionGoals may be documented in an alternate sectionGoals may be documented in an alternate sectionGoals may be documented in an alternate sectionGoals may be documented in an alternate sectionGoals may be documented in an alternate sectionGoals may be documented in an alternate sectionGoals may be documented in an alternate sectionGoals may be documented in an alternate sectionGoals may be documented in an alternate sectionGoals may be documented in an alternate section Care Teams (unrecognized sec tion and content) Team Status: Active Member Role Status Dates Dr. Mayda Garcia MD Family Provider Active Dr. Mayda Garcia MD Primary Care Provider Active Team Status: Inactive Member Role Status Dates Dr. Mayda Garcia MD Primary Care Provider Active Dr. Russell Jang , Attending Provider, Referring Pro vider Active Team Status: Inactive Member Role Status Dates Dr. Mayda Garcia MD Primary Care P rovider, Attending Provider, Referring Provider Active Team Status: Inactive Member Role Status Dates Dr. Mayda Garcia MD Primary Care Provider, Refer ring Provider Active RENE Hughes Attending Provider Active Team Status: Inactive Member Role Status Dates Dr. Mayda Garcia MD Primary Care Provider Active Dr. Mikey Garcia , Attending Provider, Emergency P rovider Active Team Status: Inactive Member Role Status Dates Dr. Mayda Garcia MD Primary Care Provider Active Dr. Azam Frey , DO Attending Provider, Emergency P rovider Active Team Status: Inactive Member Role Status Dates Dr. Mayda Garcia MD Primary Care Provider, Atten ding Provider Active Team Status: Inactive Member Role Status Dates Dr. Mayda Garcia MD Primary Care Provider Active Dr. Ulisses Chan , DO Emergency Provider Active Team Status: Inactive Member Role Status Dates Dr. Mayda Garcia MD Primary Care Provider Active Dr. Ezekiel Patel MD Emergency Provider Active Team Status: Inactive Member Role Status Dates Dr. Mayda Garcia MD Primary Care Provider Active Dr. Ulisses Chan DO Attending Provider, Emergency Provide r Active Team Status: Inactive Member Role Status Dates Dr. Mayda Garcia MD Primary Care Provider Active Dr. Ezekiel Patel MD Attending Provider, Emergency Provi jose r Active Team Status: Inactive Member Role Status Dates Dr. Mayda Garcia MD Primary Care Provider Active Dr. Tin Freeman DO Emergency Provider Active Team Status: Inactive Member Role Status Dates Dr. Mayda Garcia MD Primary Care Provider, Refer ring Provider Active Dr. Pepe Ruiz MD Attending Provider Active Team Status: Inactive Member Role Status Dates Dr. Mayda Garcia MD Primary Care Provider Active Dr. Tin Freeman DO Attending Provider, Emergency Provider Active Team Status: Active Member Role Status Dates Dr. Mayda Garcia MD Primary Care Provider, Atten ding Provider Active Team Status: Inactive Member Role Status Dates Dr. Mayda Garcia MD Primary Care Provider, Refer ring Provider Active Dr. Parker Pickett DO Attending Provider Active Team Status: Inactive Member Role Status Dates Dr. Mayda Garcia MD Primary Care Provider Active Dr. Winston Johnson MD Attending Provider Active Team Status: Inactive Member Role Status Dates Dr. Mayda Garcia MD Primary Care Provider, Refer ring Provider Active Mc Joseph PA, PA Attending Provider Active Team Status: Active Member Role Status Dates Dr. Mayda Garcia MD Primary Care P rovider, Attending Provider, Referring Provider Active Team Status: Active Member Role Status Dates Dr. Mayda Garcia MD Primary Care Provider Active Dr. Turner Armendariz DO Emergency Provider Active Dr. Edwin Kaplan DO Admit Provider, Attending Provider Active Team Status: Active Member Role Status Dates Dr. Mayda Garcia MD Primary Care Provider Active Dr. Turner Armendariz DO Emergency Provider Active Dr. Edwin Kaplan DO Admit Provi jose r, Attending Provider, Other Provider Active Dr. Bhanu Milian MD Other Provider Active Team Status: Active Member Role Status Dates Dr. Mayda Garcia MD Primary Care Provider Active Dr. Turner Armendariz , DO Emergency Provider Active Dr. Edwin Kaplan , DO Admit Provider, Other Pro vider Active Dr. Bhanu Milian MD Attending Provider, Other Provid er Active Team Status: Inactive Member Role Status Dates Dr. Mayda Garcia MD Primary Care Provider Active Dr. Turner Armendariz , DO Emergency Provider Active Dr. Edwin Kaplan , DO Admit Provider, Attending Provider Active Dr. Bhanu Milian MD Other Provider Active [employer] Relationship Specialty Start Date End Date Mayda Garcia [address] [place] [address] PCP - General Internal Medicine 12/23/22 [employer] Relationship Specialty Start Date End Date Mayda Garcia [address] [place] [address] PCP - General Internal Medicine 12/23/22 [employer] Relationship Specialty Start Date End Date Mayda Garcia [address] [place] [address] PCP - General Internal Medicine 12/23/22 [employer] Relationship Specialty Start Date End Date Mayda Garcia [address] [place] [address] PCP - General Internal Medicine 12/23/22 [employer] Relationship Specialty Start Date End Date Mayda Garcia [address] [place] [address] PCP - General Internal Medicine 12/23/22 [employer] Relationship Specialty Start Date End Date Mayda Garcia [address] [place] [address] PCP - General Internal Medicine 12/23/22 Team Status: Inactive Member Role Status Dates Dr. Mayda Garcia MD Primary Care Provider Active Dr. Robbin Carlos MD Admit Provider, Attending Provid er Active [employer] Relationship Specialty Start Date End Date SuleimantoyaMayda chance Raza [address] [place] [address] PCP - General Internal Medicine 12/23/22 Team Status: Inactive Member Role Status Dates Dr. Mayda Garcia MD Primary Care Provider Active Dr. Pepe Ruiz MD Attending Provider, Referring Provider Active Team Status: Inactive Member Role Status Dates Dr. Mayda Garcia MD Primary Care Provider, Refer ring Provider Active Carlos Bravo GANG KNIFE FISH CHOPPER, GANG KNIFE FISH CHOPPER-C Attending Provider Active Team Status: Inactive Member Role Status Dates Dr. Mayda Garcia MD Primary Care Provider Active Carlos Bravo GANG KNIFE FISH CHOPPER, GANG KNIFE FISH CHOPPER-C Attending Provider, Referring Pro vider Active Team Status: Active Member Role Status Dates Dr. Mayda Garcia MD Primary Care Provider Active Dr. Winston Johnson MD Attending Provider Active Team Status: Inactive Member Role Status Dates Dr. Mayda Garcia MD Primary Care Provider, Refer ring Provider Active Vanita Venegas GANG KNIFE FISH CHOPPER, GANG KNIFE FISH CHOPPER-C Attending Provider Active Team Status: Active Member Role Status Dates Dr. Mayda Garcia MD Primary Care Provider Active Dr. Winston Johnson MD Attending Provider, Referring Pro vider Active Team Status: Inactive Member Role Status Dates Dr. Mayad Garcia MD Primary Care Provider Active Vanita Venegas GANG KNIFE FISH CHOPPER, GANG KNIFE FISH CHOPPER-C Attending Provider, Referrin g Provider Active Team Status: Inactive Member Role Status Dates Dr. Mayda Garcia MD Primary Care Provider Active Dr. Winston Johnson MD Attending Provider, Referring Pro vider Active Team Status: Inactive Member Role Status Dates Dr. Mayda Garcia MD Primary Care Provider, Refer ring Provider Active Janee Echevarria NP-C Attending Provider Active Team Status: Active Member Role Status Dates Dr. Mayda Garcia MD Primary Care Provider Active Vanita Venegas GANG KNIFE FISH CHOPPER, GANG KNIFE FISH CHOPPER-C Attending Provider, Referrin g Provider Active Team Status: Inactive Member Role Status Dates Dr. Mayda Garcia MD Primary Care Provider, Refer ring Provider Active Dr. Vadim Mckinney DO Attending Provider Active Team Status: Active Member Role Status Dates Dr. Mayda Garcia MD Primary Care Provider Active Dr. Vadim Mckinney DO Attending Provider Active Team Status: Inactive Member Role Status Dates Dr. Mayda Garcia MD Primary Care Provider Active Dr. Vadim Mckinney DO Attending Provider, Referring Provider Active Team Status: Inactive Member Role Status Dates Dr. Mayda Garcia MD Primary Care Provider, Refer ring Provider Active BIM NURSE Attending Provider Active Team Status: Inactive Member Role Status Dates Dr. Mayda Garcia MD Primary Care Provider Active Dr. Vadim Mckinney DO Attending Provider Active Team Status: Inactive Member Role Status Dates Dr. Mayda Garcia MD Primary Care P rovider, Attending Provider, Referring Provider Active BIM NURSE Active Team Status: Inactive Member Role Status Dates Dr. Mayda Garcia MD Primary Care Provider Active Dr. Yee Rowland MD Attending Provider, Referring Provider Active Team Status: Active Member Role Status Dates Dr. Mayda Garcia MD Primary Care Provider Active Team Status: Inactive Member Role Status Dates Dr. Mayda Garcia MD Primary Care Provider Active Start: April 19, 2024 End: April 19, 2024 Dr. Mayda Garcia MD Referring Provider Active Start: April 19, 2024 End: April 19, 2024 Dr. Winston Johnson MD Attending Provider Active S tart: April 19, 2024 End: April 19, 2024 Team Status: Inactive Member Role Status Dates Dr. Mayda Garcia MD Primary Care Provider Active Start: April 20, 2024 End: April 20, 2024 Vanita Venegas GANG KNIFE FISH CHOPPER, GANG KNIFE FISH CHOPPER-C Attending Provider Active Start: April 20, 2024 End: April 20, 2024 Vanita Venegas GANG KNIFE FISH CHOPPER GANG KNIFE FISH CHOPPER-C Referring Provider Active Start: April 20, 2024 End: April 20, 2024 Team Status: Inactive Member Role Status Dates Dr. Mayda Garcia MD Primary Care Provider Active Start: April 21, 2024 End: April 21, 2024 Dr. Pepe Ruiz MD Attending Provider Active Start: April 21, 2024 End: April 21, 2024 Dr. Pepe Ruiz MD Referring Provider Active Start: April 21, 2024 End: April 21, 2024 Team Status: Active Member Role Status Dates Dr. Mayda Garcia MD Primary Care Provider Active Start: April 25, 2024 Vanita Venegas G[employer] KNIFE FISH CHOPPER, GANG KNIFE FISH CHOPPER-C Referring Provider Active Start: April 25, 2024 Vanita Venegas GANG KNIFE FISH CHOPPER, GANG KNIFE FISH CHOPPER-C Other Provider Active Start: April 25, 2024 Dr. Russell Jagn DO Attending Provider Active S tart: April 25, 2024 Team Status: Inactive Member Role Status Dates Dr. Mayda Garcia MD Primary Care Provider Active Start: May 16, 2024 End: May 16, 2024 Dr. Mayda Garcia MD Referring Provider Active Start: May 16, 2024 End: May 16, 2024 Dr. Pepe Ruiz MD Attending Provider Active Start: May 16, 2024 End: May 16, 2024 Team Status: Inactive Member Role Status Dates Dr. Mayda Garcia MD Primary Care Provider Active Start: May 16, 2024 End: May 16, 2024 Dr. Pepe Ruiz MD Attending Provider Active Start: May 16, 2024 End: May 16, 2024 Dr. Pepe Ruiz MD Referring Provider Active Start: May 16, 2024 End: May 16, 2024 Dr. Yee Rowland MD Other Provider Active St art: May 16, 2024 End: May 16, 2024 Team Status: Inactive Member Role Status Dates Dr. Mayda Garcia MD Primary Care Provider Active Start: May 20, 2024 End: May 20, 2024 Dr. Mayda Garcia MD Attending Provider Active Start: May 20, 2024 End: May 20, 2024 Dr. Mayda Garcia MD Referring Provider Active Start: May 20, 2024 End: May 20, 2024 Team Status: Inactive Member Role Status Dates Dr. Mayda Garcia MD Primary Care Provider Active Start: June 07, 2024 End: June 07, 2024 Dr. Mayda Garcia MD Attending Provider Active Start: June 07, 2024 End: June 07, 2024 Dr. Mayda Garcia MD Referring Provider Active Start: June 07, 2024 End: June 07, 2024 Team Status: Inactive Member Role Status Dates Dr. Mayda Garcia MD Primary Care Provider Active Start: June 22, 2024 End: June 22, 2024 Dr. Yee Rowland MD Attending Provider Active Start: June 22, 2024 End: June 22, 2024 Dr. Yee Rowland MD Referring Provider Active Start: June 22, 2024 End: June 22, 2024 Team Status: Inactive Member Role Status Dates Dr. Mayda Garcia MD Primary Care Provider Active Start: July 05, 2024 End: July 05, 2024 Dr. Mayda Garcia MD Referring Provider Active Start: July 05, 2024 End: July 05, 2024 Dr. Pepe Ruiz MD Attending Provider Active Start: July 05, 2024 End: July 05, 2024 Team Status: Inactive Member Role Status Dates Dr. Mayda Garcia MD Primary Care Provider Active Start: July 14, 2024 End: July 14, 2024 Dr. Ulisses Chan DO Referring Provider Active Start : July 14, 2024 End: July 14, 2024 Dr. Ulisses Chan DO Emergency Provider Active Start : July 14, 2024 End: July 14, 2024 Team Status: Inactive Member Role Status Dates Dr. Mayda Garcia MD Primary Care Provider Active Start: July 15, 2024 End: July 15, 2024 Dr. Felix Acosta MD Emergency Provider Active S tart: July 15, 2024 End: July 15, 2024 Team Status: Inactive Member Role Status Dates Dr. Mayda Garcia MD Primary Care Provider Active Start: July 05, 2024 End: July 05, 2024 Dr. Pepe Ruiz MD Attending Provider Active Start: July 05, 2024 End: July 05, 2024 Dr. Pepe Ruiz MD Referring Provider Active Start: July 05, 2024 End: July 05, 2024 Team Status: Inactive Member Role Status Dates Dr. Mayda Garcia MD Primary Care Provider Active Start: July 14, 2024 End: July 14, 2024 Dr. Ulisses Chan DO Attending Provider Active Start : July 14, 2024 End: July 14, 2024 Dr. Ulisses Chan DO Referring Provider Active Start : July 14, 2024 End: July 14, 2024 Dr. Ulisses Chan DO Emergency Provider Active Start : July 14, 2024 End: July 14, 2024 Team Status: Inactive Member Role Status Dates Dr. Mayda Garcia MD Primary Care Provider Active Start: July 15, 2024 End: July 15, 2024 Dr. Felix Acosta MD Attending Provider Active S tart: July 15, 2024 End: July 15, 2024 Dr. Felix Acosta MD Emergency Provider Active S tart: July 15, 2024 End: July 15, 2024 Team Status: Inactive Member Role Status Dates Dr. Mayda Garcia MD Primary Care Provider Active Start: August 10, 2024 End: August 10, 2024 Dr. Mayda Garcia MD Attending Provider Active Start: August 10, 2024 End: August 10, 2024 Dr. Mayda Garcia MD Referring Provider Active Start: August 10, 2024 End: August 10, 2024 Team Status: Inactive Member Role Status Dates Dr. Mayda Garcia MD Primary Care Provider Active Start: September 16, 2024 End: September 16, 2024 Dr. Azam Frey DO Emergency Provider Active Start: September 16, 2024 End: September 16, 2024 Team Status: Inactive Member Role Status Dates Dr. Mayda Garcia MD Primary Care Provider Active Start: September 19, 2024 End: September 19, 2024 Dr. Mayda Garcia MD Referring Provider Active Start: September 19, 2024 End: September 19, 2024 RENE Avalos Attending Provider Active St art: September 19, 2024 End: September 19, 2024 Team Status: Inactive Member Role Status Dates Dr. Mayda Garcia MD Primary Care Provider Active Start: September 21, 2024 End: September 21, 2024 Dr. Mayda Garcia MD Attending Provider Active Start: September 21, 2024 End: September 21, 2024 Dr. Mayda Garcia MD Referring Provider Active Start: September 21, 2024 End: September 21, 2024 Team Status: Inactive Member Role Status Dates Dr. Mayda Garcia MD Primary Care Provider Active Start: September 16, 2024 End: September 16, 2024 Dr. Azam Frey DO Attending Provider Active Start: September 16, 2024 End: September 16, 2024 Dr. Azam Frey DO Emergency Provider Active Start: September 16, 2024 End: September 16, 2024 Team Status: Inactive Member Role Status Dates Dr. Mayda Garcia MD Primary Care Provider Active Start: September 22, 2024 End: September 22, 2024 Dr. Mayda Garcia MD Attending Provider Active Start: September 22, 2024 End: September 22, 2024 Dr. Mayda Garcia MD Referring Provider Active Start: September 22, 2024 End: September 22, 2024 Team Status: Inactive Member Role Status Dates Dr. Mayda Garcia MD Primary Care Provider Active Start: September 28, 2024 End: September 28, 2024 Dr. Mayda Garcia MD Referring Provider Active Start: September 28, 2024 End: September 28, 2024 Vanita Venegas [employer], [employer] Attending Provider Active Start: September 28, 2024 End: September 28, 2024 Team Status: Inactive Member Role Status Dates Dr. Mayda Garcia MD Primary Care Provider Active Start: October 03, 2024 End: October 03, 2024 Dr. Mayda Garcia MD Referring Provider Active Start: October 03, 2024 End: October 03, 2024 Dr. 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] Procedures SC CABG W/ARTERIAL GRAFT THREE ARTERIAL GRAFTS SC ECHO TRANSESOPHAG R-T 2D W/PRB IMG ACQUISJ I&R CABG AND SIS Echocardiography transesophageal real-time Azam Rose MD [address] [place] [address] [address] [place] [address] [address] [place] [address] Referral ID Status Reason Start Date Expiration Date Visits Re quested Visits Authorized [id number] 1 1 Reason Comments Post-op Scheduled Active and Recently Administ ered Medications (unrecognized section and content) Medication Order 01/09/2023 01/10/2023 01/11/2023 acetaminophen (Tylenol) tablet 1,000 mg 1,000 mg, Oral, Every 8 hours, First dose on Maria Alejandra 01/01/23 at 1130, [facility] 0330 (Not Given - Provider: Maurilio Busby RN - Reason: Patient/family refused)1151 (Not Given - Provider: Herminia Tom RN - Reason: Patient/family refused)2008 (Given - Provider: Nilsa Hills RN) 0430 (Given - Provider: Nilsa Hills RN)1130 (Not Given - Provider: Anna Escalera RN - Reason: Patient/family refused)2052 (Given - Provider: Nilsa Hills RN) 0600 (Given - Provider: Nilsa Hills RN)1130 (Canceled Entry - Provider: Automatic Discharge Provider - Comment: Automatically canceled at discontinue of medication order) aspirin chewable tablet 81 mg 81 mg, Oral, Daily, First dose on Thu01/02/23 at 0900 1008 (Given - Provider: Herminia Tom RN) 0809 (Given - Provider: Anna Escalera, KARINA) 0808 (Given - Provider: Anna Escalera, KARINA) atorvastatin (Lipitor) tablet 80 mg 80 mg, Oral, Daily, First dose on Thu01/02/23 at 0900 1007 (Given - Provider: Herminia Tom RN) 0810 (Given - Provider: Anna Escalera, KARINA) 0810 (Given - Provider: Anna Escalera, KARINA) clopidogrel (Plavix) tablet 75 mg 75 mg, Oral, Daily, First dose on Thu01/09/23 at 0900 1007 (Given - Provider: Herminia Tom RN) 0810 (Given - Provider: Anna Escalera RN) 808 (Given - Provider: Anna Escalera RN) divalproex (Depakote) EC tablet 1,250 mg 1,250 mg, Oral, Nightly, First dose on Thu01/01/23 at 2100, Do not crush, chew, or split. 2009 (Given - Provider: Nilsa Hills RN) 2052 (Given - Provider: Nilsa Hills RN) divalproex (Depakote) EC tablet 500 mg 500 mg, Oral, Every morning, First dose on Thu01/02/23 at 0900, Do not crush, chew, or split. 1008 (Given - Provider: Herminia Tom RN) 0813 (Given - Provider: Anna Escalera RN) 0811 (Given - Provider: Anna Escalera RN) DULoxetine (Cymbalta) DR capsule 30 mg 30 mg, Oral, Daily, First dose on Thu01/02/23 at 0900, Do not crush or chew. 1008 (Given - Provider: Herminia Tom RN) 0814 (Given - Provider: Anna Escalera RN) 0811 (Given - Provider: Anna Escalera RN) heparin injection 5,000 Units 5,000 Units, SubCUTAneous, 2 times daily, First dose on Thu01/04/23 at 0900 1007 (Given - Provider: Herminia Tom RN)2008 (Given - Provider: Nilsa Hills RN) 0817 (Given - Provider: Anna Escalera RN)2052 (Given - Provider: Nilsa Hills RN) 08 (Given - Provider: Anna Escalera RN) Lidocaine 4 % patch 1 patch 1 patch, Topical, Administer over 12 Hours, Daily, First dose on Thu01/01/23 at 1130, Recovery & On Unit, Apply patch to MSI- cut in half and place on either side on incision. Patch may remain in place for up to 12 hours in any 24 hour period. 1009 (Not Given - Provider: Herminia Tom RN - Reason: Patient/family refused) 0816 (Medication Applied - Provider: Anna Escalera RN)2016 (Medication Removed - Provider: Nilsa Hills RN) 0758 (Medication Applied - Provider: Anna Escalera, KARINA)1445 (Due: Medication Removed - Provider: Automatic Discharge Provider - Comment: Time automatically adjusted from order being discontinued) metoprolol tartrate (Lopressor) tablet 50 mg 50 mg, Oral, 2 times daily, First dose (after last modification) on Thu01/06/23 at 0900, Hold for SBP less than 105 and/or MAPs less than 65 and/or HR less than 60 1007 (Given - Provider: Herminia Tom RN)2008 (Given - Provider: Nilsa Hills RN) 809 (Given - Provider: Anna Escalera, KARINA)2052 (Given - Provider: Nilsa Hills RN) 807 (Given - Provider: Anna Escalera RN) pantoprazole (ProtoNix) EC tablet 40 mg 40 mg, Oral, Daily before breakfast, First dose on Thu01/03/23 at 0800, Do not crush, chew, or split. 0620 (Given - Provider: Maurilio Busby RN) 0534 (Given - Provider: Nilsa Hills RN) 0600 (Given - Provider: Nilsa Hills RN) polyethylene glycol (PEG) 3350 (Miralax) packet 17 g 17 g, Oral, Daily, First dose on Maria Alejandra 01/01/23 at 1130, Recovery & On Unit, Bowel Regimen - for prevention of constipation. 1009 (Not Given - Provider: Herminia Tom RN - Reason: Patient/family refused) 09 (Not Given - Provider: Anna Escalera RN - Reason: Patient/family refused) 08 (Not Given - Provider: Anna Escalera RN - Reason: Patient/family refused) senna-docusate sodium (Senokot-S) 8.6-50 MG tablet 2 tablet 2 tablet, Oral, Nightly, First dose on Maria Alejandra 01/01/23 at 2100, Recovery & On Unit, Bowel Regimen - for prevention of constipation. 2008 (Given - Provider: Nilsa Hills RN) 2052 (Given - Provider: Nilsa Hills RN) PRN Medication Order 01/09/2023 01/10/2023 01/11/2023 calcium [...] BE BASED ON THE PRIMARY CLINICAL RECORDS. [facility]. provides no warranty or guarantee of the accuracy or completeness of information in this document.
== END | disposition home or self-care (01) ==
PROVIDERS: PCP Internal Medicine; Referring Provider Nurse Practitioner Acute Care; Visit Provider Nurse Practitioner Acute Care
DX: G47.33 Obstructive sleep apnea (adult) (pediatric) (principal)
CPT/HCPCS: 95811

== ENCOUNTER → 2024-11-11 | Outpatient (CLI) | payer MEDICARE, SELFPAY ==
[2023-07-29 08:29] VITALS: BMI 30.2
--- OUTSIDE RECORDS SUMMARY | 2024-11-11 20:19 | XMS RPT_ITS | CCD ---
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 L3100.5450, L501.6710 ####[facility] [address] [place], [address] Neutrophils/100 WBC (Bld) 55.3 % Normal 47-70 [facility] Comment on above: Performed By: #### L 101.9900, L505.7010, L500.2500, L100.0100, L3100.5450, L501.6710 ####[facility] [address] [place], [address] Nucleated RBC (Bld) [#/Vol] 0 10*3/uL Normal 0-5 [facility] Comment on above: Performed By: #### L 101.9900, L505.7010, L500.2500, L100.0100, L3100.5450, L501.6710 ####[facility] [address] [place], [address] Platelet mean volume (Bld) [Entitic vol] 12.2 fL High 6.2-12.0 [facility] Comment on above: Performed By: #### L 101.9900, L505.7010, L500.2500, L100.0100, L3100.5450, L501.6710 ####[facility] [address] [place], [address] Platelets (Bld) [#/Vol] 155 10*3/uL Normal 150-450 [facility] Comment on above: Performed By: #### L 101.9900, L505.7010, L500.2500, L100.0100, L3100.5450, L501.6710 ####[facility] [address] [place], [address] RBC (Bld) [#/Vol] 3.45 10*6/uL Low 4.2-5.4 [facility] Comment on above: Performed By: #### L 101.9900, L505.7010, L500.2500, L100.0100, L3100.5450, L501.6710 ####[facility] [address] [place], [address] RDW SD 49.9 fl High 35.1-43.9 [facility] Comment on above: Performed By: #### L 101.9900, L505.7010, L500.2500, L100.0100, L3100.5450, L501.6710 ####[facility] [address] [place], [address] WBC (Bld) [#/Vol] 4.3 10*3/uL Low 4.4-11.0 [facility] Comment on above: Performed By: #### L 101.9900, L505.7010, L500.2500, L100.0100, L3100.5450, L501.6710 ####[facility] [address] [place], [address] CRPon 09-22-2024 C-REACTIVE PROT 3.46 mg/L High 0.0-3.0 [facility] Comment on above: Performed By: #### L 101.9900, L505.7010, L500.2500, L100.0100, L3100.5450, L501.6710 ####[facility] [address] [place], [address] Calculated very low density lipoprotein (VLDL) cholesterol measurementOrdered By: Mikhail Apodacaiter on 09-22-2024 Calculated very low density lipoprotein (VLDL) cholesterol measurement 14 mg/dL 5-40 [facility] Carbon dioxide, total [Moles /volume] in Central venous bloodOrdered By: Mayda Garcia on 09-22-2024 CO2 [Moles/Vol] 21.6 mmol/L 21.0-32.0 [facility] Chloride assayOrdered By: Jia Garcia on 09-22-2024 Chloride [Moles/Vol] 108 mmol/L 98-108 [facility] Eosinophil percentageOrdered By: Mayda Garcia on 09-22-2024 Eosinophils/100 WBC (Bld) 2.3 % 0-5 [facility] Erythrocyte Sed Rateon 09-22 SED RATE 5 mm/hr Normal 0-30 [facility] Comment on above: Performed By: #### L 101.9900, L505.7010, L500.2500, L100.0100, L3100.5450, L501.6710 ####[facility] [address] [place], [address] Erythrocyte distribution wid th ratioOrdered By: Mayda Garcia on 09-22-2024 Erythrocyte distribution width (RBC) [Ratio] 13.9 % 11.6-14.6 [facility] Erythrocyte distribution wid th standard deviationOrdered By: Mayda Garcia on 09-22-2024 Erythrocyte distribution width (RBC) [Ratio] 49.9 fl High 35.1-43.9 [facility] Erythrocyte sedimentation ra teOrdered By: Mayda Garcia on 09-22-2024 ESR (Bld) [Velocity] 5 mm/h 0-30 [facility] Glomerular filtration rate ( GFR) estimation/1.73 sq m using serum, plasma, or whole bOrdered By: Mayda Garcia on 09-22-2024 GFR/1.73 sq M.predicted among non-blacks MDRD (S/P/Bld) [Vol rate/Area] 72 mL/min/{1.73_m2} >60 [facility] Hematocrit Auto (Bld) [Volum e fraction]Ordered By: Mayda Garcia on 09-22-2024 Hematocrit (Bld) [Volume fraction] 33.7 % Low 37-47 [facility] Hemoglobin measurementOrdere d By: Mayda Garcia on 09-22-2024 Hemoglobin (Bld) [Mass/Vol] 11.2 g/dL Low 12.0-15.0 [facility] Immature granulocytes/100 WB C Auto (Bld)Ordered By: Mayda Garcia on 09-22-2024 Immature granulocytes/100 WBC (Bld) 0.500 % 0.0-0.9 [facility] LDL calc ser/plasOrdered By: Mikhail Esposito on 09-22-2024 Cholesterol in LDL [Mass/Vol] 135 mg/dL [facility] Lipid Profileon 09-22-2024 CHOL:HDL 3.58 Normal [facility] Comment on above: Performed By: #### L 500.4100, L500.3400 ####[facility] [address] [place], [place], [address] Cholesterol [Mass/Vol] 206 mg/dL High <=200 [facility] Comment on above: Result Comment: Chol esterol level, Desirable <200 mg/dLBorderline high cholesterol 200-239 mg/dLHigh cholesterol >=240 mg/dLRecommendations of the NCEP Adult Treatment Panel for thefollowing risk-cutoff thresholds for the [place] [facility]. Performed By: #### L 500.4100, L500.3400 ####[facility] [address] [place], [place], [address] Cholesterol in HDL [Mass/Vol] 58 mg/dL Normal [facility] Comment on above: Result Comment: [facility] onal Cholesterol Education Program (NCEP) guidelines:<40 mg/dL: Low HDL-cholesterol (major risk factor for CHD)>= 60 mg/dL: High HDL-cholesterol (negative risk factor forCHD)HDL-cholesterol is affected by a number of factors, e.g.smoking, exercise, hormones, sex and age. Performed By: #### L 500.4100, L500.3400 ####[facility] [address] [place], [address] Cholesterol in LDL [Mass/Vol] 135 mg/dL Normal [facility] Comment on above: Result Comment: Bord vtavey=726-890 mg/dL Higher Byta=419 mg/dL or greater Performed By: #### L 500.4100, L500.3400 ####[facility] [address] [place], [address] Cholesterol in VLDL [Mass/Vol] 14 mg/dL Normal 5-40 [facility] Comment on above: Performed By: #### L 500.4100, L500.3400 ####[facility] [address] [place], [address] Triglyceride [Mass/Vol] 69 mg/dL Normal [facility] Comment on above: Result Comment: The drugs N-Acetylcysteine and Metamizole may falselydepress this assay.Normal range: <150 mg/dLBorderline High: 150-199 mg/dLHigh: 200-499 mg/dLVery High: >500 mg/dL Performed By: #### L 500.4100, L500.3400 ####[facility] [address] [place], [address] Liver Profileon 09-22-2024 Albumin [Mass/Vol] 3.8 g/dL Normal 3.4-4.8 [facility] Comment on above: Performed By: #### L 500.4100, L500.3400 ####[facility] [address] [place], [address] ALK PHOS 71 U/L Normal 35-104 [facility] Comment on above: Performed By: #### L 500.4100, L500.3400 ####[facility] [address] [place], [address] ALT [Catalytic activity/Vol] 19 U/L Normal <=34 [facility] Comment on above: Performed By: #### L 500.4100, L500.3400 ####[facility] [address] [place], [address] AST [Catalytic activity/Vol] 21 U/L Normal <=31 [facility] Comment on above: Performed By: #### L 500.4100, L500.3400 ####[facility] [address] [place], [address] Bilirubin [Mass/Vol] 0.33 mg/dL Normal 0.00-1.30 [facility] Comment on above: Performed By: #### L 500.4100, L500.3400 ####[facility] [address] [place], [address] Bilirubin.direct [Mass/Vol] 0.15 mg/dL Normal 0.00-0.30 [facility] Comment on above: Performed By: #### L 500.4100, L500.3400 ####[facility] [address] [place], [address] Globulin (S) [Mass/Vol] 2.7 g/dL Normal 2.2-4.2 [facility] Comment on above: Performed By: #### L 500.4100, L500.3400 ####[facility] [address] [place], [address] T PROT 6.5 g/dL Normal 5.9-8.4 [facility] Comment on above: Performed By: #### L 500.4100, L500.3400 ####[facility] [address] [place], [address] MCV (mean corpuscular volume ) determinationOrdered By: Mayda Garcia on 09-22-2024 MCV (RBC) [Entitic vol] 97.7 fL 81-99 [facility] Mean corpuscular hemoglobin (MCH) determinationOrdered By: Mayda Garcia on 09-22-2024 MCH (RBC) [Entitic mass] 32.5 pg High 27.0-32.0 [facility] Monocyte percentageOrdered B y: Mayda Garcia on 09-22-2024 Monocytes/100 WBC (Bld) 8.1 % 0-10 [facility] Neutrophil percentageOrdered By: Jiamichellerosemary Suleimantoyachandana on 09-22-2024 Neutrophils/100 WBC (Bld) 55.3 % 47-70 [facility] No Panel InformationOrdered By: Mikhail Apodacaiter on 09-22-2024 21 U/L <32 [facility] Platelet countOrdered By: Jia michellerosemary Garcia on 09-22-2024 Platelets (Bld) [#/Vol] 155 10*3/uL 150-450 [facility] Potassium measurement (mass/ volume)Ordered By: Mayda Garcia on 09-22-2024 Potassium (Unsp spec) [Mass/Vol] 4.1 mmol/L 3.3-5.1 [facility] RBC Auto (Bld) [#/Vol]Ordere d By: Mayda Garcia on 09-22-2024 RBC (Bld) [#/Vol] 3.45 10*6/uL Low 4.2-5.4 [facility] Rheumatoid Factoron 09-23-19 25 RHEUMATOID FAC < 10.0 Normal <15 [facility] Comment on above: Performed By: #### L 101.9900, L505.7010, L500.2500, L100.0100, L3100.5450, L501.6710 ####[facility] [address] [place], [address] Serum DNA double strand anti body assay (units/volume)Ordered By: Mayda Garcia on 09-22-2024 DNA double strand Ab Qn (S) TNP [facility] Serum Scl-70 antibody assay (units/volume)Ordered By: Mayda Garcia on 09-22-2024 SCL-70 extractable nuclear Ab Qn (S) TNP [facility] Serum creatinine measurement (mass/volume)Ordered By: Mayda Garcia on 09-22-2024 Creatinine [Mass/Vol] 0.86 mg/dL 0.70-1.20 [facility] Serum globulin measurementOr dered By: Mikhail Esposito on 09-22-2024 Globulin (S) [Mass/Vol] 2.7 g/dL 2.2-4.2 [facility] Serum glucose measurement (m ass/volume)Ordered By: Mayda Garcia on 09-22-2024 Glucose [Mass/Vol] 105 mg/dL High 70-99 [facility] Serum or plasma C reactive p rotein measurement (mass/volume)Ordered By: Mayda Garcia on 09-22-2024 CRP [Mass/Vol] 3.46 mg/L High 0.0-3.0 [facility] Serum or plasma alanine carvalho otransferase (ALT) measurementOrdered By: Mikhail Esposito on 09-22-2024 ALT [Catalytic activity/Vol] 19 U/L <35 [facility] Serum or plasma albumin loretta urement (mass/volume)Ordered By: Mikhail Esposito on 09-22-2024 Albumin [Mass/Vol] 3.8 g/dL 3.4-4.8 [facility] Serum or plasma alkaline dima sphatase measurementOrdered By: Mikhail Esposito on 09-22-2024 ALP [Catalytic activity/Vol] 71 U/L 35-104 [facility] Serum or plasma calcium loretta urement (mass/volume)Ordered By: Mayda Garcia on 09-22-2024 Calcium [Mass/Vol] 8.4 mg/dL 7.6-11.0 [facility] Serum or plasma cholesterol in HDL measurement (mass/volume)Ordered By: Mikhail Esposito on 09-22-2024 Cholesterol in HDL [Mass/Vol] 58 mg/dL >40 [facility] Serum or plasma cholesterol measurement (mass/volume)Ordered By: Mikhail Esposito on 09-22-2024 Cholesterol [Mass/Vol] 206 mg/dL High <201 [facility] Serum or plasma urea nitroge n measurement (mass/volume)Ordered By: Mayda Garcia on 09-22-2024 Urea nitrogen [Mass/Vol] 23 mg/dL High 4- [facility] Serum rheumatoid factor dete ctionOrdered By: Mayda Garcia on 09-22-2024 Rheumatoid factor Ql (S) < 10.0 IU/mL <15 [facility] Sodium levelOrdered By: Noris rosemary Suleimantoyachandana on 09-22-2024 Sodium [Moles/Vol] 140 mmol/L 133-145 [facility] Total proteinOrdered By: Fer Esposito on 09-22-2024 Protein [Mass/Vol] 6.5 g/dL 5.9-8.4 [facility] White blood cell (WBC) count Ordered By: Mayda Garcia on 09-22-2024 WBC (Bld) [#/Vol] 4.3 10*3/uL Low 4.4-11.0 [facility] Internal Medicine Office Vis iton 09-21-2024 Internal Medicine Office Visit Normal [facility] Cardiology Visit Reporton Cardiology Visit Report Normal [facility] 12 Lead EKGon 09-16-2024 12 Lead EKG Normal [facility] Absolute lymphocyte countOrd ered By: Azam Frey on 09-16-2024 Lymphocytes Auto (Unsp spec) [#/Vol] 1.40 10*3/uL 0.83-4.51 [facility] Anion gap in Serum or Plasma Ordered By: Azam Frey on 09-16-2024 Anion gap [Moles/Vol] 10 mmol/L 5-15 [facility] Automated lymphocyte count a s percentage of total leukocytesOrdered By: Azam Frey on 09-16-2024 Lymphocytes/100 WBC Auto (Unsp spec) 33.3 % -41 [facility] BUN/creatinine ratioOrdered By: Azam Frey on 09-16-2024 Urea nitrogen/Creatinine [Mass ratio] 28.6 mg/mg High 10- [facility] Basic Metabolic Profile (BMP )on 09-16-2024 BUN/CRE 28.6 RATIO High 02-20 [facility] Comment on above: Performed By: #### L 500.2500, L503.7505, L100.0100, L501.4021 ####[facility] [address] [place], [address] Calcium [Mass/Vol] 8.7 mg/dL Normal 7.6-11.0 [facility] Comment on above: Performed By: #### L 500.2500, L503.7505, L100.0100, L501.4021 ####[facility] [address] [place], [address] Chloride [Moles/Vol] 109 mmol/L High 98-108 [facility] Comment on above: Performed By: #### L 500.2500, L503.7505, L100.0100, L501.4021 ####[facility] [address] [place], [address] CO2 [Moles/Vol] 23.0 mmol/L Normal 21.0-32.0 [facility] Comment on above: Performed By: #### L 500.2500, L503.7505, L100.0100, L501.4021 ####[facility] [address] [place], [address] Creatinine [Mass/Vol] 0.77 mg/dL Normal 0.70-1.20 [facility] Comment on above: Performed By: #### L 500.2500, L503.7505, L100.0100, L501.4021 ####[facility] [address] [place], [address] GAP 10 Normal 5-15 [facility] Comment on above: Performed By: #### L 500.2500, L503.7505, L100.0100, L501.4021 ####[facility] [address] [place], [address] GFR/1.73 sq M.predicted among non-blacks MDRD (S/P/Bld) [Vol rate/Area] 82 mL/min/{1.73_m2} Normal >60 [facility] Comment on above: Result Comment: mL/m in/1.73m2 CKD-EPI Creatinine Equation (2020) Performed By: #### L 500.2500, L503.7505, L100.0100, L501.4021 ####[facility] [address] [place], [address] Glucose [Mass/Vol] 76 mg/dL Normal 70-99 [facility] Comment on above: Performed By: #### L 500.2500, L503.7505, L100.0100, L501.4021 ####[facility] [address] [place], [address] Potassium [Moles/Vol] 3.7 mmol/L Normal 3.3-5.1 [facility] Comment on above: Performed By: #### L 500.2500, L503.7505, L100.0100, L501.4021 ####[facility] [address] [place], [address] Sodium [Moles/Vol] 142 mmol/L Normal 133-145 [facility] Comment on above: Performed By: #### L 500.2500, L503.7505, L100.0100, L501.4021 ####[facility] [address] [place], [address] Urea nitrogen [Mass/Vol] 22 mg/dL High 4-19 [facility] Comment on above: Performed By: #### L 500.2500, L503.7505, L100.0100, L501.4021 ####[facility] [address] [place], [address] Basophil percentageOrdered B y: Azam Frey on 09-16-2024 Basophils/100 WBC (Bld) 0.2 % 0-1 [facility] CBC W/Diff, Automatedon 09-01 Absolute Lymph 1.40 X10 3/uL Normal 0.83-4.51 [facility] Comment on above: Performed By: #### L 500.2500, L503.7505, L100.0100, L501.4021 ####[facility] [address] [place], [address] Absolute Neut 2.3 X10 3/uL Normal 2.0-7.7 [facility] Comment on above: Performed By: #### L 500.2500, L503.7505, L100.0100, L501.4021 ####[facility] [address] [place], [address] Basophils/100 WBC (Bld) 0.2 % Normal 0-1 [facility] Comment on above: Performed By: #### L 500.2500, L503.7505, L100.0100, L501.4021 ####[facility] [address] [place], [address] Eosinophils/100 WBC (Bld) 2.4 % Normal 0-5 [facility] Comment on above: Performed By: #### L 500.2500, L503.7505, L100.0100, L501.4021 ####[facility] [address] [place], [address] Erythrocyte distribution width (RBC) [Ratio] 13.8 % Normal 11.6-14.6 [facility] Comment on above: Performed By: #### L 500.2500, L503.7505, L100.0100, L501.4021 ####[facility] [address] [place], [address] Hematocrit (Bld) [Volume fraction] 25.8 % Low 37-47 [facility] Comment on above: Performed By: #### L 500.2500, L503.7505, L100.0100, L501.4021 ####[facility] [address] [place], [address] Hemoglobin (Bld) [Mass/Vol] 8.6 g/dL Low 12.0-15.0 [facility] Comment on above: Performed By: #### L 500.2500, L503.7505, L100.0100, L501.4021 ####[facility] [address] [place], [address] IG% 0.500 Normal 0.0-0.9 [facility] Comment on above: Result Comment: IG% - Immature Granulocytes (promyelocytes, myelocytes andmetamyelocytes) > 1% indicates that a LEFT SHIFT is Present. Performed By: #### L 500.2500, L503.7505, L100.0100, L501.4021 ####[facility] [address] [place], [address] Lymphocytes/100 WBC (Bld) 33.3 % Normal 19-41 [facility] Comment on above: Performed By: #### L 500.2500, L503.7505, L100.0100, L501.4021 ####[facility] [address] [place], [address] MCH (RBC) [Entitic mass] 32.5 pg High 27.0-32.0 [facility] Comment on above: Performed By: #### L 500.2500, L503.7505, L100.0100, L501.4021 ####[facility] [address] [place], [address] MCHC (RBC) [Mass/Vol] 33.3 g/dL Normal 32-36 [facility] Comment on above: Performed By: #### L 500.2500, L503.7505, L100.0100, L501.4021 ####[facility] [address] [place], [address] MCV (RBC) [Entitic vol] 97.4 fL Normal 81-99 [facility] Comment on above: Performed By: #### L 500.2500, L503.7505, L100.0100, L501.4021 ####[facility] [address] [place], [address] Monocytes/100 WBC (Bld) 8.6 % Normal 0-10 [facility] Comment on above: Performed By: #### L 500.2500, L503.7505, L100.0100, L501.4021 ####[facility] [address] [place], [address] Neutrophils/100 WBC (Bld) 55.0 % Normal 47-70 [facility] Comment on above: Performed By: #### L 500.2500, L503.7505, L100.0100, L501.4021 ####[facility] [address] [place], [address] Nucleated RBC (Bld) [#/Vol] 0 10*3/uL Normal 0-5 [facility] Comment on above: Performed By: #### L 500.2500, L503.7505, L100.0100, L501.4021 ####[facility] [address] [place], [address] Platelet mean volume (Bld) [Entitic vol] 11.6 fL Normal 6.2-12.0 [facility] Comment on above: Performed By: #### L 500.2500, L503.7505, L100.0100, L501.4021 ####[facility] [address] [place], [address] Platelets (Bld) [#/Vol] 117 10*3/uL Low 150-450 [facility] Comment on above: Performed By: #### L 500.2500, L503.7505, L100.0100, L501.4021 ####[facility] [address] [place], [address] RBC (Bld) [#/Vol] 2.65 10*6/uL Low 4.2-5.4 [facility] Comment on above: Performed By: #### L 500.2500, L503.7505, L100.0100, L501.4021 ####[facility] [address] [place], [address] RDW SD 48.9 fl High 35.1-43.9 [facility] Comment on above: Performed By: #### L 500.2500, L503.7505, L100.0100, L501.4021 ####[facility] [address] [place], [address] WBC (Bld) [#/Vol] 4.2 10*3/uL Low 4.4-11.0 [facility] Comment on above: Performed By: #### L 500.2500, L503.7505, L100.0100, L501.4021 ####[facility] [address] [place], [address] Carbon dioxide, total [Moles /volume] in Central venous bloodOrdered By: Azam Frey on 09-16-2024 CO2 [Moles/Vol] 23.0 mmol/L 21.0-32.0 [facility] Chest 1 View (Portable)on Chest 1 View (Portable) Normal [facility] Chloride assayOrdered By: Hugh Fery on 09-16-2024 Chloride [Moles/Vol] 109 mmol/L High 98-108 [facility] Emergency Department Summary on 09-16-2024 Emergency Department Summary Normal [facility] Eosinophil percentageOrdered By: Azam Frey on 09-16-2024 Eosinophils/100 WBC (Bld) 2.4 % 0-5 [facility] Erythrocyte distribution wid th ratioOrdered By: Azam Frey on 09-16-2024 Erythrocyte distribution width (RBC) [Ratio] 13.8 % 11.6-14.6 [facility] Erythrocyte distribution wid th standard deviationOrdered By: Azam Frey on 09-16-2024 Erythrocyte distribution width (RBC) [Ratio] 48.9 fl High 35.1-43.9 [facility] Glomerular filtration rate ( GFR) estimation/1.73 sq m using serum, plasma, or whole bOrdered By: Azamjerica Frey on 09-16-2024 GFR/1.73 sq M.predicted among non-blacks MDRD (S/P/Bld) [Vol rate/Area] 82 mL/min/{1.73_m2} >60 [facility] Hematocrit Auto (Bld) [Volum e fraction]Ordered By: Azam Frey on 09-16-2024 Hematocrit (Bld) [Volume fraction] 25.8 % Low 37-47 [facility] Hemoglobin measurementOrdere d By: Azamjerica Frey on 09-16-2024 Hemoglobin (Bld) [Mass/Vol] 8.6 g/dL Low 12.0-15.0 [facility] Immature granulocytes/100 WB C Auto (Bld)Ordered By: Azam Frey on 09-16-2024 Immature granulocytes/100 WBC (Bld) 0.500 % 0.0-0.9 [facility] L499.0042on 09-16-2024 Trop T High Sen 7 ng/L Normal <=14 [facility] Comment on above: Result Comment: Hemo lysis present, Results??could be affected.?? Performed By: #### L 499.0042 ####[facility] [address] [place], [address] L499.0043on 09-16-2024 Trop T High Sen Normal <=14 [facility] Comment on above: Result Comment: Canc elled via OM: Order cancelled - Patient discharged Performed By: #### L 499.0043 ####[facility] [address] [place], [address] L501.4021on 09-16-2024 Trop T High Sen 8 ng/L Normal <=14 [facility] Comment on above: Performed By: #### L 500.2500, L503.7505, L100.0100, L501.4021 ####[facility] [address] [place], [address] L503.7505on 09-16-2024 Natriuretic peptide B (Bld) [Mass/Vol] 239 pg/mL Normal <=900 [facility] Comment on above: Result Comment: Hear t Failure Unlikely: < 300 pg/mLHeart Failure Likely< 50 Years: > 450 pg/mL50-75 Years: > 900 pg/mL>75 Years: > 1800 pg/mL Performed By: #### L 500.2500, L503.7505, L100.0100, L501.4021 ####[facility] [address] [place], [place], [address] MCV (mean corpuscular volume ) determinationOrdered By: Azam Frey on 09-16-2024 MCV (RBC) [Entitic vol] 97.4 fL 81-99 [facility] Mean corpuscular hemoglobin (MCH) determinationOrdered By: Azam Frey on 09-16-2024 MCH (RBC) [Entitic mass] 32.5 pg High 27.0-32.0 [facility] Monocyte percentageOrdered B y: Azam Frey on 09-16-2024 Monocytes/100 WBC (Bld) 8.6 % 0-10 [facility] Natriuretic peptide.B prohor thai N-Terminal [Mass/volume] in Serum or PlasmaOrdered By: Azam Frey on 09-16-2024 Natriuretic peptide.B prohormone N-Terminal [Mass/Vol] 239 pg/mL <900 [facility] Neutrophil percentageOrdered By: Azam Frey on 09-16-2024 Neutrophils/100 WBC (Bld) 55.0 % 47-70 [facility] Platelet countOrdered By: Hugh Frey on 09-16-2024 Platelets (Bld) [#/Vol] 117 10*3/uL Low 150-450 [facility] Potassium measurement (mass/ volume)Ordered By: Azam Frey on 09-16-2024 Potassium (Unsp spec) [Mass/Vol] 3.7 mmol/L 3.3-5.1 [facility] RBC Auto (Bld) [#/Vol]Ordere d By: Azam Frey on 09-16-2024 RBC (Bld) [#/Vol] 2.65 10*6/uL Low 4.2-5.4 [facility] Serum creatinine measurement (mass/volume)Ordered By: Azam Frey on 09-16-2024 Creatinine [Mass/Vol] 0.77 mg/dL 0.70-1.20 [facility] Serum glucose measurement (m ass/volume)Ordered By: Azam Frey on 09-16-2024 Glucose [Mass/Vol] 76 mg/dL 70-99 [facility] Serum or plasma calcium loretta urement (mass/volume)Ordered By: Azam Frey on 09-16-2024 Calcium [Mass/Vol] 8.7 mg/dL 7.6-11.0 [facility] Serum or plasma urea nitroge n measurement (mass/volume)Ordered By: Azam Frey on 09-16-2024 Urea nitrogen [Mass/Vol] 22 mg/dL High 4-19 [facility] Sodium levelOrdered By: Azam Frey on 09-16-2024 Sodium [Moles/Vol] 142 mmol/L 133-145 [facility] Stool Occult Blood iFOBon STOB Negative Normal [facility] Comment on above: Performed By: #### M 100.7900 ####[facility] [address] [place], [address] Stool gastrointestinal hemog lobin detection by immunologic methodOrdered By: Azam Frey on 09-16-2024 Lower GI hemoglobin IA Ql (Stl) [facility] Troponin T.cardiac [Mass/vol ume] in Serum or Plasma by High sensitivity methodOrdered By: Azam Frey on 09-16-2024 Troponin T.cardiac High sensitivity method [Mass/Vol] 7 ng/L <14 [facility] Troponin T.cardiac High sensitivity method [Mass/Vol] 8 ng/L <14 [facility] White blood cell (WBC) count Ordered By: Azam Frey on 09-16-2024 WBC (Bld) [#/Vol] 4.2 10*3/uL Low 4.4-11.0 [facility] Internal Medicine Office Vis iton 08-10-2024 Internal Medicine Office Visit Normal [facility] No Panel InformationOrdered By: Mayda Garcia on 08-10-2024 6.4 % High 4.2-6.3 [facility] Chest PA and Lateralon 07-15 Chest PA and Lateral Normal [facility] Emergency Department Summary on 07-15-2024 Emergency Department Summary Normal [facility] 12 Lead EKGon 07-14-2024 12 Lead EKG Normal [facility] Absolute lymphocyte countOrd ered By: Ulisses Chan on 07-14-2024 Lymphocytes Auto (Unsp spec) [#/Vol] 1.82 10*3/uL 0.83-4.51 [facility] Absolute neutrophil countOrd ered By: Ulisses Chan on 07-14-2024 Absolute neutrophil count 2.4 X10^3/uL 2.0-7.7 [facility] Anion gap [Moles/Vol]Ordered By: Ulisses Chan on 07-14-2024 Anion gap in Serum or Plasma 12 09-15 [facility] Anion gap in Serum or Plasma Ordered By: Ulisses Chan on 07-14-2024 Anion gap [Moles/Vol] 12 mmol/L 09-15 [facility] Automated lymphocyte count a s percentage of total leukocytesOrdered By: Ulisses Chan on 07-14-2024 Lymphocytes/100 WBC Auto (Unsp spec) 38.7 % 19-41 [facility] BUN/creatinine ratioOrdered By: Ulisses Chan on 07-14-2024 Urea nitrogen/Creatinine [Mass ratio] 21.2 mg/mg High 10-20 [facility] BUN/creatinine ratio 21.2 RATIO High 10-20 [facility] Basic Metabolic Profile (BMP )on 07-14-2024 BUN/CRE 21.2 RATIO High - [facility] Comment on above: Performed By: #### L 100.0100, L501.4021, L500.2500 ####[facility] [address] [place], [address] Calcium [Mass/Vol] 9.4 mg/dL Normal 7.6-11.0 [facility] Comment on above: Performed By: #### L 100.0100, L501.4021, L500.2500 ####[facility] [address] [place], [address] Chloride [Moles/Vol] 106 mmol/L Normal 98-108 [facility] Comment on above: Performed By: #### L 100.0100, L501.4021, L500.2500 ####[facility] [address] [place], [address] CO2 [Moles/Vol] 23.7 mmol/L Normal 21.0-32.0 [facility] Comment on above: Performed By: #### L 100.0100, L501.4021, L500.2500 ####[facility] [address] [place], [address] Creatinine [Mass/Vol] 0.94 mg/dL Normal 0.70-1.20 [facility] Comment on above: Performed By: #### L 100.0100, L501.4021, L500.2500 ####[facility] [address] [place], [address] ECRCL 52.46 ml/min Normal 50-250 [facility] Comment on above: Performed By: #### L 100.0100, L501.4021, L500.2500 ####[facility] [address] [place], [address] GAP 12 Normal 5-15 [facility] Comment on above: Performed By: #### L 100.0100, L501.4021, L500.2500 ####[facility] [address] [place], [address] GFR/1.73 sq M.predicted among non-blacks MDRD (S/P/Bld) [Vol rate/Area] 65 mL/min/{1.73_m2} Normal >60 [facility] Comment on above: Result Comment: mL/m in/1.73m2 CKD-EPI Creatinine Equation (2020) Performed By: #### L 100.0100, L501.4021, L500.2500 ####[facility] [address] [place], [address] Glucose [Mass/Vol] 141 mg/dL High 70-99 [facility] Comment on above: Performed By: #### L 100.0100, L501.4021, L500.2500 ####[facility] [address] [place], [address] Potassium [Moles/Vol] 3.9 mmol/L Normal 3.3-5.1 [facility] Comment on above: Performed By: #### L 100.0100, L501.4021, L500.2500 ####[facility] [address] [place], [address] Sodium [Moles/Vol] 142 mmol/L Normal 133-145 [facility] Comment on above: Performed By: #### L 100.0100, L501.4021, L500.2500 ####[facility] [address] [place], [address] Urea nitrogen [Mass/Vol] 20 mg/dL High 4-19 [facility] Comment on above: Performed By: #### L 100.0100, L501.4021, L500.2500 ####[facility] [address] [place], [address] Basophil percentageOrdered B y: Ulisses Le on 07-14-2024 Basophils/100 WBC (Bld) 0.2 % 0-1 [facility] Basophil percentage 0.2 % 0-1 [facility] CBC W/Diff, Automatedon 07-02 Absolute Lymph 1.82 X10 3/uL Normal 0.83-4.51 [facility] Comment on above: Performed By: #### L 100.0100, L501.4021, L500.2500 ####[facility] [address] [place], [address] Absolute Neut 2.4 X10 3/uL Normal 2.0-7.7 [facility] Comment on above: Performed By: #### L 100.0100, L501.4021, L500.2500 ####[facility] [address] [place], [address] Basophils/100 WBC (Bld) 0.2 % Normal 0-1 [facility] Comment on above: Performed By: #### L 100.0100, L501.4021, L500.2500 ####[facility] [address] [place], [address] Eosinophils/100 WBC (Bld) 1.7 % Normal 0-5 [facility] Comment on above: Performed By: #### L 100.0100, L501.4021, L500.2500 ####[facility] [address] [place], [address] Erythrocyte distribution width (RBC) [Ratio] 13.2 % Normal 11.6-14.6 [facility] Comment on above: Performed By: #### L 100.0100, L501.4021, L500.2500 ####[facility] [address] [place], [address] Hematocrit (Bld) [Volume fraction] 35.2 % Low 37-47 [facility] Comment on above: Performed By: #### L 100.0100, L501.4021, L500.2500 ####[facility] [address] [place], [address] Hemoglobin (Bld) [Mass/Vol] 11.8 g/dL Low 12.0-15.0 [facility] Comment on above: Performed By: #### L 100.0100, L501.4021, L500.2500 ####[facility] [address] [place], [address] IG% 0.200 Normal 0.0-0.9 [facility] Comment on above: Result Comment: IG% - Immature Granulocytes (promyelocytes, myelocytes andmetamyelocytes) > 1% indicates that a LEFT SHIFT is Present. Performed By: #### L 100.0100, L501.4021, L500.2500 ####[facility] [address] [place], [address] Lymphocytes/100 WBC (Bld) 38.7 % Normal 19-41 [facility] Comment on above: Performed By: #### L 100.0100, L501.4021, L500.2500 ####[facility] [address] [place], [address] MCH (RBC) [Entitic mass] 32.3 pg High 27.0-32.0 [facility] Comment on above: Performed By: #### L 100.0100, L501.4021, L500.2500 ####[facility] [address] [place], [address] MCHC (RBC) [Mass/Vol] 33.5 g/dL Normal 32-36 [facility] Comment on above: Performed By: #### L 100.0100, L501.4021, L500.2500 ####[facility] [address] [place], [address] MCV (RBC) [Entitic vol] 96.4 fL Normal 81-99 [facility] Comment on above: Performed By: #### L 100.0100, L501.4021, L500.2500 ####[facility] [address] [place], [address] Monocytes/100 WBC (Bld) 8.1 % Normal 0-10 [facility] Comment on above: Performed By: #### L 100.0100, L501.4021, L500.2500 ####[facility] [address] [place], [address] Neutrophils/100 WBC (Bld) 51.1 % Normal 47-70 [facility] Comment on above: Performed By: #### L 100.0100, L501.4021, L500.2500 ####[facility] [address] [place], [address] Nucleated RBC (Bld) [#/Vol] 0 10*3/uL Normal 0-5 [facility] Comment on above: Performed By: #### L 100.0100, L501.4021, L500.2500 ####[facility] [address] [place], [address] Platelet mean volume (Bld) [Entitic vol] 10.8 fL Normal 6.2-12.0 [facility] Comment on above: Performed By: #### L 100.0100, L501.4021, L500.2500 ####[facility] [address] [place], [address] Platelets (Bld) [#/Vol] 208 10*3/uL Normal 150-450 [facility] Comment on above: Performed By: #### L 100.0100, L501.4021, L500.2500 ####[facility] [address] [place], [address] RBC (Bld) [#/Vol] 3.65 10*6/uL Low 4.2-5.4 [facility] Comment on above: Performed By: #### L 100.0100, L501.4021, L500.2500 ####[facility] [address] [place], [address] RDW SD 47.2 fl High 35.1-43.9 [facility] Comment on above: Performed By: #### L 100.0100, L501.4021, L500.2500 ####[facility] [address] [place], [address] WBC (Bld) [#/Vol] 4.7 10*3/uL Normal 4.4-11.0 [facility] Comment on above: Performed By: #### L 100.0100, L501.4021, L500.2500 ####[facility] [address] [facility] [place], [address] Calcium [Mass/Vol]Ordered By : Ulisses Chan on 07-14-2024 Serum or plasma calcium measurement (mass/volume) 9.4 mg/dL 7.6-11.0 [facility] Carbon dioxide, total [Moles /volume] in Central venous bloodOrdered By: Ulisses Chan on 07-14-2024 CO2 [Moles/Vol] 23.7 mmol/L 21.0-32.0 [facility] Carbon dioxide, total [Moles/volume] in Central venous blood 23.7 mmol/L 21.0-32.0 [facility] Chest without Contraston Chest without Contrast Normal [facility] Chloride assayOrdered By: Margarito Chan on 07-14-2024 Chloride [Moles/Vol] 106 mmol/L 98-108 [facility] Chloride assay 106 mmol/L 98-108 [facility] Creatinine [Mass/Vol]Ordered By: Ulisses Chan on 07-14-2024 Serum creatinine measurement (mass/volume) 0.94 mg/dL 0.70-1.20 [facility] Emergency Department Summary on 07-14-2024 Emergency Department Summary Normal [facility] Eosinophil percentageOrdered By: Ulisses Chan on 07-14-2024 Eosinophils/100 WBC (Bld) 1.7 % 0-5 [facility] Eosinophil percentage 1.7 % 0-5 [facility] Erythrocyte distribution wid th (RBC) [Entitic vol]Ordered By: Ulisses Chan on 07-14-2024 Erythrocyte distribution width standard deviation 47.2 fl High 35.1-43.9 [facility] Erythrocyte distribution wid th (RBC) [Ratio]Ordered By: Ulisses Chan on 07-14-2024 Erythrocyte distribution width ratio 13.2 % 11.6-14.6 [facility] Erythrocyte distribution wid th ratioOrdered By: Ulisses Chan on 07-14-2024 Erythrocyte distribution width (RBC) [Ratio] 13.2 % 11.6-14.6 [facility] Erythrocyte distribution wid th standard deviationOrdered By: Ulisses Chan on 07-14-2024 Erythrocyte distribution width (RBC) [Ratio] 47.2 fl High 35.1-43.9 [facility] Estimation of creatinine carl aranceOrdered By: Ulisses Chan on 07-14-2024 Estimation of creatinine clearance 52.46 ml/min 50-250 [facility] GFR/1.73 sq M.predicted leland g non-blacks MDRD (S/P/Bld) [Vol rate/Area]Ordered By: Ulisses Chan on 07-14-2024 Glomerular filtration rate (GFR) estimation/1.73 sq m using serum, plasma, or whole b 65 >60 [facility] Glomerular filtration rate ( GFR) estimation/1.73 sq m using serum, plasma, or whole bOrdered By: Ulisses Chan on 07-14-2024 GFR/1.73 sq M.predicted among non-blacks MDRD (S/P/Bld) [Vol rate/Area] 65 mL/min/{1.73_m2} >60 [facility] Glucose [Mass/Vol]Ordered By : Ulisses Chan on 07-14-2024 Serum glucose measurement (mass/volume) 141 mg/dL High 70-99 [facility] Hematocrit Auto (Bld) [Volum e fraction]Ordered By: Ulisses Chan on 07-14-2024 Hematocrit (Bld) [Volume fraction] 35.2 % Low 37-47 [facility] Automated blood hematocrit (percentage) 35.2 % Low 37-47 [facility] Hemoglobin measurementOrdere d By: Ulisses Chan on 07-14-2024 Hemoglobin (Bld) [Mass/Vol] 11.8 g/dL Low 12.0-15.0 [facility] Hemoglobin measurement 11.8 g/dL Low 12.0-15.0 [facility] Immature granulocytes/100 WB C Auto (Bld)Ordered By: Ulisses Chan on 07-14-2024 Immature granulocytes/100 WBC (Bld) 0.200 % 0.0-0.9 [facility] Automated immature granulocyte percentage 0.200 % 0.0-0.9 [facility] L499.0042on 07-14-2024 Trop T High Sen 11 ng/L Normal <=14 [facility] Comment on above: Performed By: #### L 499.0042 ####[facility] [address] [place], [address] L499.0043on 07-14-2024 Trop T High Sen Normal <=14 [facility] Comment on above: Result Comment: NO S PECIMEN COLLECTED. PATIENT DEPARTED ED Performed By: #### L 499.0043 ####[facility] [address] [place], [address] L501.4021on 07-14-2024 Trop T High Sen 9 ng/L Normal <=14 [facility] Comment on above: Performed By: #### L 100.0100, L501.4021, L500.2500 ####[facility] [address] [place], [address] Lymphocytes Auto (Unsp spec) [#/Vol]Ordered By: Ulisses Chan on 07-14-2024 Absolute lymphocyte count 1.82 X10^3/uL 0.83-4.51 [facility] Lymphocytes/100 WBC Auto (Un sp spec)Ordered By: Ulisses Chan on 07-14-2024 Automated lymphocyte count as percentage of total leukocytes 38.7 % 19-41 [facility] MCV (RBC) [Entitic vol]Order ed By: Ulisses Chan on 07-14-2024 MCV (mean corpuscular volume) determination 96.4 fL 81-99 [facility] MCV (mean corpuscular volume ) determinationOrdered By: Ulisses Chan on 07-14-2024 MCV (RBC) [Entitic vol] 96.4 fL 81-99 [facility] Mean corpuscular hemoglobin (MCH) determinationOrdered By: Ulisses Chan on 07-14-2024 MCH (RBC) [Entitic mass] 32.3 pg High 27.0-32.0 [facility] Mean corpuscular hemoglobin (MCH) determination 32.3 pg High 27.0-32.0 [facility] Mean corpuscular hemoglobin concentration (MCHC) determinationOrdered By: Ulisses Chan on 07-14-2024 Mean corpuscular hemoglobin concentration (MCHC) determination 33.5 g/dL 32-36 [facility] Mean platelet volume determi nationOrdered By: Ulisses Chan on 07-14-2024 Mean platelet volume determination 10.8 fl 6.2-12.0 [facility] Monocyte percentageOrdered B y: Ulisses Chan on 07-14-2024 Monocytes/100 WBC (Bld) 8.1 % 0-10 [facility] Monocyte percentage 8.1 % 0-10 [facility] Neutrophil percentageOrdered By: Ulisses Chan on 07-14-2024 Neutrophils/100 WBC (Bld) 51.1 % 47-70 [facility] Neutrophil percentage 51.1 % 47-70 [facility] No Panel InformationOrdered By: Ulisses Chan on 07-14-2024 9 ng/L <14 [facility] Nucleated red blood cell per centageOrdered By: Ulisses Chan on 07-14-2024 Nucleated red blood cell percentage 0 % 0-5 [facility] Platelet countOrdered By: Margarito Chan on 07-14-2024 Platelets (Bld) [#/Vol] 208 10*3/uL 150-450 [facility] Platelet count 208 K/mm3 150-450 [facility] Potassium (Unsp spec) [Mass/ Vol]Ordered By: Ulisses Chan on 07-14-2024 Potassium measurement (mass/volume) 3.9 mmol/L 3.3-5.1 [facility] Potassium measurement (mass/ volume)Ordered By: Ulisses Chan on 07-14-2024 Potassium (Unsp spec) [Mass/Vol] 3.9 mmol/L 3.3-5.1 [facility] RBC Auto (Bld) [#/Vol]Ordere d By: Ulisses Chan on 07-14-2024 RBC (Bld) [#/Vol] 3.65 10*6/uL Low 4.2-5.4 [facility] Automated blood erythrocyte count 3.65 M/mm3 Low 4.2-5.4 [facility] Serum creatinine measurement (mass/volume)Ordered By: Ulisses Chan on 07-14-2024 Creatinine [Mass/Vol] 0.94 mg/dL 0.70-1.20 [facility] Serum glucose measurement (m ass/volume)Ordered By: Ulisses Chan on 07-14-2024 Glucose [Mass/Vol] 141 mg/dL High 70-99 [facility] Serum or plasma calcium loretta urement (mass/volume)Ordered By: Ulisses Chan on 07-14-2024 Calcium [Mass/Vol] 9.4 mg/dL 7.6-11.0 [facility] Serum or plasma urea nitroge n measurement (mass/volume)Ordered By: Ulisses Chan on 07-14-2024 Urea nitrogen [Mass/Vol] 20 mg/dL High 08-20 [facility] Sodium levelOrdered By: Ulisses Chan on 07-14-2024 Sodium [Moles/Vol] 142 mmol/L 133-145 [facility] Sodium level 142 mmol/L 133-145 [facility] Troponin T.cardiac High sens itivity method [Mass/Vol]Ordered By: Ulisses Chan on 07-14-2024 Troponin T.cardiac [Mass/volume] in Serum or Plasma by High sensitivity method 11 ng/L <14 [facility] Troponin T.cardiac [Mass/vol ume] in Serum or Plasma by High sensitivity methodOrdered By: Ulisses Chan on 07-14-2024 Troponin T.cardiac High sensitivity method [Mass/Vol] 11 ng/L <14 [facility] Urea nitrogen [Mass/Vol]Orde red By: Ulisses Chan on 07-14-2024 Serum or plasma urea nitrogen measurement (mass/volume) 20 mg/dL High 08-20 [facility] White blood cell (WBC) count Ordered By: Ulisses Chan on 07-14-2024 WBC (Bld) [#/Vol] 4.7 10*3/uL 4.4-11.0 [facility] White blood cell (WBC) count 4.7 K/mm3 4.4-11.0 [facility] Office Visit Reporton 2024 Office Visit Report Normal [facility] ALP [Catalytic activity/Vol] Ordered By: Yee Rowland on 06-22-2024 Serum or plasma alkaline phosphatase measurement 60 U/L 45-117 [facility] ALT [Catalytic activity/Vol] Ordered By: Yee Rowland on 06-22-2024 Serum or plasma alanine aminotransferase (ALT) measurement 22 U/L 13-56 [facility] Absolute lymphocyte countOrd ered By: Yeejazlyn Rowland on 06-22-2024 Lymphocytes Auto (Unsp spec) [#/Vol] 1.44 10*3/uL 0.83-4.51 [facility] Absolute neutrophil countOrd ered By: Yee Rowland on 06-22-2024 Absolute neutrophil count 2.0 X10^3/uL 2.0-7.7 [facility] Albumin [Mass/Vol]Ordered By : Yee Rowland on 06-22-2024 Serum or plasma albumin measurement (mass/volume) 3.1 g/dL Low 3.2-5.0 [facility] Albumin to globulin ratioOrd ered By: Yeejazlyn Rowland on 06-22-2024 Albumin to globulin ratio 0.9 RATIO 0.9-2.4 [facility] Automated lymphocyte count a s percentage of total leukocytesOrdered By: Yee Rowland on 06-22-2024 Lymphocytes/100 WBC Auto (Unsp spec) 37.7 % 19-41 [facility] Basophil percentageOrdered B y: Yee Rowland on 06-22-2024 Basophils/100 WBC (Bld) 0.5 % 0-1 [facility] Basophil percentage 0.5 % 0-1 [facility] Bilirubin, totalOrdered By: Yee Rowland on 06-22-2024 Bilirubin [Mass/Vol] 0.40 mg/dL 0.20-1.00 [facility] Bilirubin, total 0.40 mg/dL 0.20-1.00 [facility] Blood urea nitrogen (BUN)/cr eatinine ratioOrdered By: Yee Rowland on 06-22-2024 Blood urea nitrogen (BUN)/creatinine ratio 26.2 RATIO High 10-20 [facility] CBC W/Diff, Automatedon 06-04 Absolute Lymph 1.44 X10 3/uL Normal 0.83-4.51 [facility] Comment on above: Performed By: #### L 500.4050, L100.0100 ####[facility] [address] [place], [address] Absolute Neut 2.0 X10 3/uL Normal 2.0-7.7 [facility] Comment on above: Performed By: #### L 500.4050, L100.0100 ####[facility] [address] [place], [address] Basophils/100 WBC (Bld) 0.5 % Normal 0-1 [facility] Comment on above: Performed By: #### L 500.4050, L100.0100 ####[facility] [address] [place], [address] Eosinophils/100 WBC (Bld) 2.6 % Normal 0-5 [facility] Comment on above: Performed By: #### L 500.4050, L100.0100 ####[facility] [address] [place], [address] Erythrocyte distribution width (RBC) [Ratio] 13.4 % Normal 11.6-14.6 [facility] Comment on above: Performed By: #### L 500.4050, L100.0100 ####[facility] [address] [place], [address] Hematocrit (Bld) [Volume fraction] 34.8 % Low 37-47 [facility] Comment on above: Performed By: #### L 500.4050, L100.0100 ####[facility] [address] [place], [address] Hemoglobin (Bld) [Mass/Vol] 11.5 g/dL Low 12.0-15.0 [facility] Comment on above: Performed By: #### L 500.4050, L100.0100 ####[facility] [address] [place], [address] IG% 0.300 Normal 0.0-0.9 [facility] Comment on above: Result Comment: IG% - Immature Granulocytes (promyelocytes, myelocytes andmetamyelocytes) > 1% indicates that a LEFT SHIFT is Present. Performed By: #### L 500.4050, L100.0100 ####[facility] [address] [place], [address] Lymphocytes/100 WBC (Bld) 37.7 % Normal 19-41 [facility] Comment on above: Performed By: #### L 500.4050, L100.0100 ####[facility] [address] [place], [address] MCH (RBC) [Entitic mass] 32.3 pg High 27.0-32.0 [facility] Comment on above: Performed By: #### L 500.4050, L100.0100 ####[facility] [address] [place], [address] MCHC (RBC) [Mass/Vol] 33.0 g/dL Normal 32-36 [facility] Comment on above: Performed By: #### L 500.4050, L100.0100 ####[facility] [address] [place], [address] MCV (RBC) [Entitic vol] 97.8 fL Normal 81-99 [facility] Comment on above: Performed By: #### L 500.4050, L100.0100 ####[facility] [address] [place], [address] Monocytes/100 WBC (Bld) 7.1 % Normal 0-10 [facility] Comment on above: Performed By: #### L 500.4050, L100.0100 ####[facility] [address] [place], [address] Neutrophils/100 WBC (Bld) 51.8 % Normal 47-70 [facility] Comment on above: Performed By: #### L 500.4050, L100.0100 ####[facility] [address] [place], [address] Nucleated RBC (Bld) [#/Vol] 0 10*3/uL Normal 0-5 [facility] Comment on above: Performed By: #### L 500.4050, L100.0100 ####[facility] [address] [place], [address] Platelet mean volume (Bld) [Entitic vol] 11.1 fL Normal 6.2-12.0 [facility] Comment on above: Performed By: #### L 500.4050, L100.0100 ####[facility] [address] [place], [address] Platelets (Bld) [#/Vol] 192 10*3/uL Normal 150-450 [facility] Comment on above: Performed By: #### L 500.4050, L100.0100 ####[facility] [address] [place], [address] RBC (Bld) [#/Vol] 3.56 10*6/uL Low 4.2-5.4 [facility] Comment on above: Performed By: #### L 500.4050, L100.0100 ####[facility] [address] [place], [address] RDW SD 47.8 fl High 35.1-43.9 [facility] Comment on above: Performed By: #### L 500.4050, L100.0100 ####[facility] [address] [place], [address] WBC (Bld) [#/Vol] 3.8 10*3/uL Low 4.4-11.0 [facility] Comment on above: Performed By: #### L 500.4050, L100.0100 ####[facility] [address] [place], [address] Calcium [Mass/Vol]Ordered By : Yee Rowland on 06-22-2024 Serum or plasma calcium measurement (mass/volume) 8.7 mg/dL 8.5-10.1 [facility] Carbon dioxide measurementOr dered By: Yee Rowland on 06-22-2024 CO2 [Moles/Vol] 25.0 mmol/L 21.0-32.0 [facility] Carbon dioxide measurement 25.0 mmol/L 21.0-32.0 [facility] Chloride measurementOrdered By: Yee Rowland on 06-22-2024 Chloride [Moles/Vol] 110 mmol/L High 98-107 [facility] Chloride measurement 110 mmol/L High 98-107 [facility] Comprehensive Metabolic Prof ilon 06-22-2024 Albumin [Mass/Vol] 3.1 g/dL Low 3.2-5.0 [facility] Comment on above: Performed By: #### L 500.4050, L100.0100 ####[facility] [address] [place], [address] Albumin/Globulin [Mass ratio] 0.9 {ratio} Normal 0.9-2.4 [facility] Comment on above: Performed By: #### L 500.4050, L100.0100 ####[facility] [address] [place], [address] ALK P 60 U/L Normal 45-117 [facility] Comment on above: Performed By: #### L 500.4050, L100.0100 ####[facility] [address] [place], [address] ALT [Catalytic activity/Vol] 22 U/L Normal 13-56 [facility] Comment on above: Performed By: #### L 500.4050, L100.0100 ####[facility] [address] [place], [address] AST [Catalytic activity/Vol] 18 U/L Normal 15-37 [facility] Comment on above: Performed By: #### L 500.4050, L100.0100 ####[facility] [address] [place], [address] Bilirubin [Mass/Vol] 0.40 mg/dL Normal 0.20-1.00 [facility] Comment on above: Result Comment: For patients on eltrombopag therapy, use of Dimension [place] TBIL is not recommended. Performed By: #### L 500.4050, L100.0100 ####[facility] [address] [place], [address] BUN/CRE 26.2 RATIO High 10-20 [facility] Comment on above: Performed By: #### L 500.4050, L100.0100 ####[facility] [address] [place], [address] CA,Total 8.7 mg/dL Normal 8.5-10.1 [facility] Comment on above: Performed By: #### L 500.4050, L100.0100 ####[facility] [address] [place], [address] Chloride [Moles/Vol] 110 mmol/L High 98-107 [facility] Comment on above: Performed By: #### L 500.4050, L100.0100 ####[facility] [address] [place], [address] CO2 [Moles/Vol] 25.0 mmol/L Normal 21.0-32.0 [facility] Comment on above: Performed By: #### L 500.4050, L100.0100 ####[facility] [address] [place], [address] Creatinine [Mass/Vol] 0.88 mg/dL Normal 0.55-1.02 [facility] Comment on above: Result Comment: The validity of the calculated GFR GFRAA in patients over70 years has not been determined. Clinical correlation isessential. Performed By: #### L 500.4050, L100.0100 ####[facility] [address] [place], [address] EST GFR - AA 82 mL/min Normal >60 [facility] Comment on above: Result Comment: Afri can Citizen [place] GFR Calc Performed By: #### L 500.4050, L100.0100 ####[facility] [address] [place], [address] GAP 6 Normal 5-15 [facility] Comment on above: Performed By: #### L 500.4050, L100.0100 ####[facility] [address] [place], [address] GFR/1.73 sq M.predicted among non-blacks MDRD (S/P/Bld) [Vol rate/Area] 68 mL/min/{1.73_m2} Normal >60 [facility] Comment on above: Result Comment: Non- GFR Calc Performed By: #### L 500.4050, L100.0100 ####[facility] [address] [place], [address] Globulin (S) [Mass/Vol] 3.5 g/dL Normal 2.2-4.2 [facility] Comment on above: Performed By: #### L 500.4050, L100.0100 ####[facility] [address] [place], [address] Glucose [Mass/Vol] 103 mg/dL Normal 74-106 [facility] Comment on above: Result Comment: Fast ing Glucose result from 100 to 125 mg/dLsuggests IMPAIRED HOMEOSTASIS per A.D.A. criteria. Performed By: #### L 500.4050, L100.0100 ####[facility] [address] [place], [address] Potassium [Moles/Vol] 4.1 mmol/L Normal 3.5-5.1 [facility] Comment on above: Performed By: #### L 500.4050, L100.0100 ####[facility] [address] [place], [address] Sodium [Moles/Vol] 141 mmol/L Normal 136-145 [facility] Comment on above: Performed By: #### L 500.4050, L100.0100 ####[facility] [address] [place], [address] T PROT 6.6 g/dL Normal 6.4-8.2 [facility] Comment on above: Performed By: #### L 500.4050, L100.0100 ####[facility] [address] [place], [address] Urea nitrogen [Mass/Vol] 23 mg/dL High 7-18 [facility] Comment on above: Performed By: #### L 500.4050, L100.0100 ####[facility] [address] [place], [address] Creatinine [Mass/Vol]Ordered By: Yee Rowland on 06-22-2024 Serum or plasma creatinine measurement (mass/volume) 0.88 mg/dL 0.55-1.02 [facility] Eosinophil percentageOrdered By: Yee Rowland on 06-22-2024 Eosinophils/100 WBC (Bld) 2.6 % 0-5 [facility] Eosinophil percentage 2.6 % 0-5 [facility] Erythrocyte distribution wid th (RBC) [Entitic vol]Ordered By: Yee Rowland on 06-22-2024 Erythrocyte distribution width standard deviation 47.8 fl High 35.1-43.9 [facility] Erythrocyte distribution wid th (RBC) [Ratio]Ordered By: Yee Rowland on 06-22-2024 Erythrocyte distribution width ratio 13.4 % 11.6-14.6 [facility] Erythrocyte distribution wid th ratioOrdered By: Yee Rowland on 06-22-2024 Erythrocyte distribution width (RBC) [Ratio] 13.4 % 11.6-14.6 [facility] Erythrocyte distribution wid th standard deviationOrdered By: Yee Rowland on 06-22-2024 Erythrocyte distribution width (RBC) [Ratio] 47.8 fl High 35.1-43.9 [facility] Estimated glomerular filtrat ion rate (GFR) AmericanOrdered By: Yee Rowland on 06-22-2024 Estimated glomerular filtration rate (GFR) 82 mL/min >60 [facility] Glomerular filtration rate ( GFR) estimationOrdered By: Yee Rowland on 06-22-2024 GFR/1.73 sq M.predicted among non-blacks MDRD (S/P/Bld) [Vol rate/Area] 68 mL/min/{1.73_m2} >60 [facility] Glomerular filtration rate (GFR) estimation 68 mL/min >60 [facility] Glucose measurementOrdered B y: Yee Rowland on 06-22-2024 Glucose [Mass/Vol] 103 mg/dL 74-106 [facility] Glucose measurement 103 mg/dL 74-106 [facility] Hematocrit Auto (Bld) [Volum e fraction]Ordered By: Yee Rowland on 06-22-2024 Hematocrit (Bld) [Volume fraction] 34.8 % Low 37-47 [facility] Automated blood hematocrit (percentage) 34.8 % Low 37-47 [facility] Hemoglobin measurementOrdere d By: Yee Rowland on 06-22-2024 Hemoglobin (Bld) [Mass/Vol] 11.5 g/dL Low 12.0-15.0 [facility] Hemoglobin measurement 11.5 g/dL Low 12.0-15.0 [facility] Immature granulocytes/100 WB C Auto (Bld)Ordered By: Yee Rowland on 06-22-2024 Immature granulocytes/100 WBC (Bld) 0.300 % 0.0-0.9 [facility] Automated immature granulocyte percentage 0.300 % 0.0-0.9 [facility] Lymphocytes Auto (Unsp spec) [#/Vol]Ordered By: Yee Rowland on 06-22-2024 Absolute lymphocyte count 1.44 X10^3/uL 0.83-4.51 [facility] Lymphocytes/100 WBC Auto (Un sp spec)Ordered By: Yee Rowland on 06-22-2024 Automated lymphocyte count as percentage of total leukocytes 37.7 % 19-41 [facility] MCV (RBC) [Entitic vol]Order ed By: Yee Rowland on 06-22-2024 MCV (mean corpuscular volume) determination 97.8 fL 81-99 [facility] MCV (mean corpuscular volume ) determinationOrdered By: Yee Rowland on 06-22-2024 MCV (RBC) [Entitic vol] 97.8 fL 81-99 [facility] Mean corpuscular hemoglobin (MCH) determinationOrdered By: Yee Rowland on 06-22-2024 MCH (RBC) [Entitic mass] 32.3 pg High 27.0-32.0 [facility] Mean corpuscular hemoglobin (MCH) determination 32.3 pg High 27.0-32.0 [facility] Mean corpuscular hemoglobin concentration (MCHC) determinationOrdered By: Yee Rowland on 06-22-2024 Mean corpuscular hemoglobin concentration (MCHC) determination 33.0 g/dL 32-36 [facility] Mean platelet volume determi nationOrdered By: Yee Rowland on 06-22-2024 Mean platelet volume determination 11.1 fl 6.2-12.0 [facility] Monocyte percentageOrdered B y: Yee Rowland on 06-22-2024 Monocytes/100 WBC (Bld) 7.1 % 0-10 [facility] Monocyte percentage 7.1 % 0-10 [facility] Neutrophil percentageOrdered By: Yee Rowland on 06-22-2024 Neutrophils/100 WBC (Bld) 51.8 % 47-70 [facility] Neutrophil percentage 51.8 % 47-70 [facility] No Panel InformationOrdered By: Yee Rowland on 06-22-2024 18 U/L 15-37 [facility] Nucleated red blood cell per centageOrdered By: Yee Rowland on 06-22-2024 Nucleated red blood cell percentage 0 % 0-5 [facility] Platelet countOrdered By: Rene Rowland on 06-22-2024 Platelets (Bld) [#/Vol] 192 10*3/uL 150-450 [facility] Platelet count 192 K/mm3 150-450 [facility] Potassium measurementOrdered By: Yee Rowland on 06-22-2024 Potassium [Moles/Vol] 4.1 mmol/L 3.5-5.1 [facility] Potassium measurement 4.1 mmol/L 3.5-5.1 [facility] RBC Auto (Bld) [#/Vol]Ordere d By: Yee Rowland on 06-22-2024 RBC (Bld) [#/Vol] 3.56 10*6/uL Low 4.2-5.4 [facility] Automated blood erythrocyte count 3.56 M/mm3 Low 4.2-5.4 [facility] Serum anion gap measurementO rdered By: Yee Rowland on 06-22-2024 Serum anion gap measurement 6 5-15 [facility] Serum globulin measurementOr dered By: Yee Rowland on 06-22-2024 Globulin (S) [Mass/Vol] 3.5 g/dL 2.2-4.2 [facility] Serum globulin measurement 3.5 g/dL 2.2-4.2 [facility] Serum or plasma alanine carvalho otransferase (ALT) measurementOrdered By: Yee Rowland on 06-22-2024 ALT [Catalytic activity/Vol] 22 U/L 13-56 [facility] Serum or plasma albumin loretta urement (mass/volume)Ordered By: Yee Rowland on 06-22-2024 Albumin [Mass/Vol] 3.1 g/dL Low 3.2-5.0 [facility] Serum or plasma alkaline dima sphatase measurementOrdered By: Yee Rowland on 06-22-2024 ALP [Catalytic activity/Vol] 60 U/L 45-117 [facility] Serum or plasma calcium loretta urement (mass/volume)Ordered By: Yee Rowland on 06-22-2024 Calcium [Mass/Vol] 8.7 mg/dL 8.5-10.1 [facility] Serum or plasma creatinine m easurement (mass/volume)Ordered By: Yee Rowland on 06-22-2024 Creatinine [Mass/Vol] 0.88 mg/dL 0.55-1.02 [facility] Serum or plasma urea nitroge n measurement (mass/volume)Ordered By: Yee Rowland on 06-22-2024 Urea nitrogen [Mass/Vol] 23 mg/dL High 11-18 [facility] Sodium levelOrdered By: Karl Rowland on 06-22-2024 Sodium [Moles/Vol] 141 mmol/L 136-145 [facility] Sodium level 141 mmol/L 136-145 [facility] Total proteinOrdered By: Prasad Rowland on 06-22-2024 Protein [Mass/Vol] 6.6 g/dL 6.4-8.2 [facility] Total protein 6.6 g/dL 6.4-8.2 [facility] Urea nitrogen [Mass/Vol]Orde red By: Yee Rowland on 06-22-2024 Serum or plasma urea nitrogen measurement (mass/volume) 23 mg/dL High 11-18 [facility] White blood cell (WBC) count Ordered By: Yee Rowland on 06-22-2024 WBC (Bld) [#/Vol] 3.8 10*3/uL Low 4.4-11.0 [facility] White blood cell (WBC) count 3.8 K/mm3 Low 4.4-11.0 [facility] SCRN MAMM (CAD)W/PAUL BILATo n 06-07-2024 SCRN MAMM (CAD)W/PAUL BILAT Normal [facility] Internal Medicine Office Vis iton 05-20-2024 Internal Medicine Office Visit Normal [facility] No Panel Informationon 05-20 6.5 % High 4.2-6.3 [facility] ALP [Catalytic activity/Vol] Ordered By: Pepe Ruiz on 05-16-2024 Serum or plasma alkaline phosphatase measurement 66 U/L 45-117 [facility] ALT [Catalytic activity/Vol] Ordered By: Pepe Ruiz on 05-16-2024 Serum or plasma alanine aminotransferase (ALT) measurement 22 U/L 13-56 [facility] Albumin [Mass/Vol]Ordered By : Pepe Ruiz on 05-16-2024 Serum or plasma albumin measurement (mass/volume) 3.1 g/dL Low 3.2-5.0 [facility] Albumin to globulin ratioOrd ered By: Pepe Ruiz on 05-16-2024 Albumin to globulin ratio 0.9 RATIO 0.9-2.4 [facility] Ammoniaon 05-16-2024 Ammonia (P) [Moles/Vol] 39.0 umol/L High 11-32 [facility] Comment on above: Performed By: #### L 500.4050, L501.8100, L100.0500, L503.5510 ####[facility] [address] [place], [address] Bilirubin, totalOrdered By: Pepe Ruiz on 05-16-2024 Bilirubin, total 0.30 mg/dL 0.20-1.00 [facility] Blood urea nitrogen (BUN)/cr eatinine ratioOrdered By: Pepe Ruiz on 05-16-2024 Blood urea nitrogen (BUN)/creatinine ratio 23.7 RATIO High 10-20 [facility] CBC-Complete Blood Cnt No Di ffon 05-16-2024 Erythrocyte distribution width (RBC) [Ratio] 13.5 % Normal 11.6-14.6 [facility] Comment on above: Performed By: #### L 500.4050, L501.8100, L100.0500, L503.5510 ####[facility] [address] [place], [address] Hematocrit (Bld) [Volume fraction] 35.5 % Low 37-47 [facility] Comment on above: Performed By: #### L 500.4050, L501.8100, L100.0500, L503.5510 ####[facility] [address] [place], [address] Hemoglobin (Bld) [Mass/Vol] 11.4 g/dL Low 12.0-15.0 [facility] Comment on above: Performed By: #### L 500.4050, L501.8100, L100.0500, L503.5510 ####[facility] [address] [place], [address] MCH (RBC) [Entitic mass] 31.6 pg Normal 27.0-32.0 [facility] Comment on above: Performed By: #### L 500.4050, L501.8100, L100.0500, L503.5510 ####[facility] [address] [place], [address] MCHC (RBC) [Mass/Vol] 32.1 g/dL Normal 32-36 [facility] Comment on above: Performed By: #### L 500.4050, L501.8100, L100.0500, L503.5510 ####[facility] [address] [place], [address] MCV (RBC) [Entitic vol] 98.3 fL Normal 81-99 [facility] Comment on above: Performed By: #### L 500.4050, L501.8100, L100.0500, L503.5510 ####[facility] [address] [place], [address] Platelet mean volume (Bld) [Entitic vol] 11.6 fL Normal 6.2-12.0 [facility] Comment on above: Performed By: #### L 500.4050, L501.8100, L100.0500, L503.5510 ####[facility] [address] [place], [address] Platelets (Bld) [#/Vol] 173 10*3/uL Normal 150-450 [facility] Comment on above: Performed By: #### L 500.4050, L501.8100, L100.0500, [id number] ####[facility] [address] [place], [address] RBC (Bld) [#/Vol] 3.61 10*6/uL Low 4.2-5.4 [facility] Comment on above: Performed By: #### L 500.4050, L501.8100, L100.0500, L503.5510 ####[facility] [address] [place], [address] RDW SD 49.5 fl High 35.1-43.9 [facility] Comment on above: Performed By: #### L 500.4050, L501.8100, L100.0500, L503.5510 ####[facility] [address] [place], [address] WBC (Bld) [#/Vol] 3.5 10*3/uL Low 4.4-11.0 [facility] Comment on above: Performed By: #### L 500.4050, L501.8100, L100.0500, L503.5510 ####[facility] [address] [place], [address] Calcium [Mass/Vol]Ordered By : Pepe Ruiz on 05-16-2024 Serum or plasma calcium measurement (mass/volume) 8.7 mg/dL 8.5-10.1 [facility] Carbon dioxide measurementOr dered By: Pepe Ruiz on 05-16-2024 Carbon dioxide measurement 26.0 mmol/L 21.0-32.0 [facility] Chloride measurementOrdered By: Pepe Ruiz on 05-16-2024 Chloride measurement 111 mmol/L High 98-107 [facility] Comprehensive Metabolic Prof ilon 05-16-2024 Albumin [Mass/Vol] 3.1 g/dL Low 3.2-5.0 [facility] Comment on above: Performed By: #### L 500.4050, L501.8100, L100.0500, L503.5510 ####[facility] [address] [place], [address] Albumin/Globulin [Mass ratio] 0.9 {ratio} Normal 0.9-2.4 [facility] Comment on above: Performed By: #### L 500.4050, L501.8100, L100.0500, [id number] ####[facility] [address] [place], [address] ALK P 66 U/L Normal 45-117 [facility] Comment on above: Performed By: #### L 500.4050, L501.8100, L100.0500, [id number] ####[facility] [address] [place], [address] ALT [Catalytic activity/Vol] 22 U/L Normal 13-56 [facility] Comment on above: Performed By: #### L 500.4050, L501.8100, L100.0500, [id number] ####[facility] [address] [place], [address] AST [Catalytic activity/Vol] 15 U/L Normal 15-37 [facility] Comment on above: Performed By: #### L 500.4050, L501.8100, L100.0500, [id number] ####[facility] [address] [place], [address] Bilirubin [Mass/Vol] 0.30 mg/dL Normal 0.20-1.00 [facility] Comment on above: Result Comment: For patients on eltrombopag therapy, use of Dimension [place] TBIL is not recommended. Performed By: #### L 500.4050, L501.8100, L100.0500, L503.5510 ####[facility] [address] [place], [address] BUN/CRE 23.7 RATIO High 10-20 [facility] Comment on above: Performed By: #### L 500.4050, L501.8100, L100.0500, [id number] ####[facility] [address] [place], [address] CA,Total 8.7 mg/dL Normal 8.5-10.1 [facility] Comment on above: Performed By: #### L 500.4050, L501.8100, L100.0500, L503.5510 ####[facility] [address] [place], [address] Chloride [Moles/Vol] 111 mmol/L High 98-107 [facility] Comment on above: Performed By: #### L 500.4050, L501.8100, L100.0500, L503.5510 ####[facility] [address] [place], [address] CO2 [Moles/Vol] 26.0 mmol/L Normal 21.0-32.0 [facility] Comment on above: Performed By: #### L 500.4050, L501.8100, L100.0500, L503.5510 ####[facility] [address] [place], [address] Creatinine [Mass/Vol] 0.93 mg/dL Normal 0.55-1.02 [facility] Comment on above: Result Comment: The validity of the calculated GFR GFRAA in patients over70 years has not been determined. Clinical correlation isessential. Performed By: #### L 500.4050, L501.8100, L100.0500, L503.5510 ####[facility] [address] [place], [address] EST GFR - AA 76 mL/min Normal >60 [facility] Comment on above: Result Comment: Afri can Citizen [place] GFR Calc Performed By: #### L 500.4050, L501.8100, L100.0500, L503.5510 ####[facility] [address] [place], [address] GAP 3 Low 5-15 [facility] Comment on above: Performed By: #### L 500.4050, L501.8100, L100.0500, L503.5510 ####[facility] [address] [place], [address] GFR/1.73 sq M.predicted among non-blacks MDRD (S/P/Bld) [Vol rate/Area] 63 mL/min/{1.73_m2} Normal >60 [facility] Comment on above: Result Comment: Non- GFR Calc Performed By: #### L 500.4050, L501.8100, L100.0500, L503.5510 ####[facility] [address] [place], [address] Globulin (S) [Mass/Vol] 3.6 g/dL Normal 2.2-4.2 [facility] Comment on above: Performed By: #### L 500.4050, L501.8100, L100.0500, L503.5510 ####[facility] [address] [place], [address] Glucose [Mass/Vol] 122 mg/dL High 74-106 [facility] Comment on above: Result Comment: Fast ing Glucose result from 100 to 125 mg/dLsuggests IMPAIRED HOMEOSTASIS per A.D.A. criteria. Performed By: #### L 500.4050, L501.8100, L100.0500, L503.5510 ####[facility] [address] [place], [address] Potassium [Moles/Vol] 4.3 mmol/L Normal 3.5-5.1 [facility] Comment on above: Performed By: #### L 500.4050, L501.8100, L100.0500, L503.5510 ####[facility] [address] [place], [address] Sodium [Moles/Vol] 140 mmol/L Normal 136-145 [facility] Comment on above: Performed By: #### L 500.4050, L501.8100, L100.0500, L503.5510 ####[facility] [address] [place], [address] T PROT 6.7 g/dL Normal 6.4-8.2 [facility] Comment on above: Performed By: #### L 500.4050, L501.8100, L100.0500, L503.5510 ####[facility] [address] [place], [address] Urea nitrogen [Mass/Vol] 22 mg/dL High 7-18 [facility] Comment on above: Performed By: #### L 500.4050, L501.8100, L100.0500, L503.5510 ####[facility] [address] [place], [address] Creatinine [Mass/Vol]Ordered By: Pepe Ruiz on 05-16-2024 Serum or plasma creatinine measurement (mass/volume) 0.93 mg/dL 0.55-1.02 [facility] Erythrocyte distribution wid th (RBC) [Entitic vol]Ordered By: Pepe Ruiz on 05-16-2024 Erythrocyte distribution width standard deviation 49.5 fl High 35.1-43.9 [facility] Erythrocyte distribution wid th (RBC) [Ratio]Ordered By: Pepe Ruiz on 05-16-2024 Erythrocyte distribution width ratio 13.5 % 11.6-14.6 [facility] Estimated glomerular filtrat ion rate (GFR) AmericanOrdered By: Pepe Ruiz on 05-16-2024 Estimated glomerular filtration rate (GFR) 76 mL/min >60 [facility] Glomerular filtration rate ( GFR) estimationOrdered By: Pepe Ruiz on 05-16-2024 Glomerular filtration rate (GFR) estimation 63 mL/min >60 [facility] Glucose measurementOrdered B y: Pepe Ruiz on 05-16-2024 Glucose measurement 122 mg/dL High 74-106 [facility] Hematocrit Auto (Bld) [Volum e fraction]Ordered By: Pepe Ruiz on 05-16-2024 Automated blood hematocrit (percentage) 35.5 % Low 37-47 [facility] Hemoglobin measurementOrdere d By: Pepe Ruiz on 05-16-2024 Hemoglobin measurement 11.4 g/dL Low 12.0-15.0 [facility] MCV (RBC) [Entitic vol]Order ed By: Pepe Ruiz on 05-16-2024 MCV (mean corpuscular volume) determination 98.3 fL 81-99 [facility] Mean corpuscular hemoglobin (MCH) determinationOrdered By: Pepe Ruiz on 05-16-2024 Mean corpuscular hemoglobin (MCH) determination 31.6 pg 27.0-32.0 [facility] Mean corpuscular hemoglobin concentration (MCHC) determinationOrdered By: Pepe Ruiz on 05-16-2024 Mean corpuscular hemoglobin concentration (MCHC) determination 32.1 g/dL 32-36 [facility] Mean platelet volume determi nationOrdered By: Pepe Ruiz on 05-16-2024 Mean platelet volume determination 11.6 fl 6.2-12.0 [facility] Neurology Visit Reporton Neurology Visit Report Normal [facility] No Panel InformationOrdered By: Pepe Ruiz on 05-16-2024 15 U/L 15-37 [facility] Platelet countOrdered By: Ra cheyanne Ruiz on 05-16-2024 Platelet count 173 K/mm3 150-450 [facility] Potassium measurementOrdered By: Pepe Ruiz on 05-16-2024 Potassium measurement 4.3 mmol/L 3.5-5.1 [facility] RBC Auto (Bld) [#/Vol]Ordere d By: Pepe Ruiz on 05-16-2024 Automated blood erythrocyte count 3.61 M/mm3 Low 4.2-5.4 [facility] Serum anion gap measurementO rdered By: Pepe Ruiz on 05-16-2024 Serum anion gap measurement 3 Low 5-15 [facility] Serum globulin measurementOr dered By: Pepe Ruiz on 05-16-2024 Serum globulin measurement 3.6 g/dL 2.2-4.2 [facility] Sodium levelOrdered By: Jimmieraymundo yorknapoleon Ruiz on 05-16-2024 Sodium level 140 mmol/L 136-145 [facility] Total proteinOrdered By: Jimmie juannapoleon Ruiz on 05-16-2024 Total protein 6.7 g/dL 6.4-8.2 [facility] Urea nitrogen [Mass/Vol]Orde red By: Pepe Ruiz on 05-16-2024 Serum or plasma urea nitrogen measurement (mass/volume) 22 mg/dL High 7-18 [facility] Valproate levelOrdered By: Tere Ruiz on 05-16-2024 Valproate level 74 ug/mL 50-100 [facility] Valproic Acid (Depakene) Lev tommy 05-16-2024 VALPROIC ACID 74 ug/mL Normal 50-100 [facility] Comment on above: Performed By: #### L 500.4050, L501.8100, L100.0500, L503.5510 ####[facility] [address] [place], [place], [id number] Venous blood ammonia measure mentOrdered By: Pepe Ruiz on 05-16-2024 Venous blood ammonia measurement 39.0 umol/L High 11-32 [facility] White blood cell (WBC) count Ordered By: Pepe Ruiz on 05-16-2024 White blood cell (WBC) count 3.5 K/mm3 Low 4.4-11.0 [facility] 6 Minute Walk Teston 04-25-2 024 6 Minute Walk Test Normal [facility] Office Visit Reporton 2023 Office Visit Report Normal [facility] Cardiology Visit Reporton Cardiology Visit Report Normal [facility] Urine Cultureon 02-21-2024 URC Below infection natalie corley Mixed Gram Positive Organisms [place] Count 1000-10,000 [facility] Mixed contaminants. Submit a new specimen if indicated. Normal [facility] Comment on above: Performed By: #### M 100.2200, L400.0001 ####[facility] [address] [place], [address] Internal Medicine Office Vis iton 02-19-2024 Internal Medicine Office Visit Normal [facility] Urinalysis, Completeon 02-18 BACTERIA 0 SEEN Normal None Seen [facility] Comment on above: Order Comment: COLLE CTOR TO SPECIFY Performed By: #### M 100.2200, L400.0001 ####[facility] [address] [place], [address] EPI,SQUAMOUS 0 SEEN Normal 5-10 [facility] Comment on above: Order Comment: FERNANDO CTOR TO SPECIFY Performed By: #### M 100.2200, L400.0001 ####[facility] [address] [place], [address] Mucus Ql (Urine sed) 0 SEEN Normal [facility] Comment on above: Order Comment: FERNANDO CTOR TO SPECIFY Performed By: #### M 100.2200, L400.0001 ####[facility] [address] [place], [address] RBC 0 SEEN Normal 0-5 [facility] Comment on above: Order Comment: [facility] CTOR TO SPECIFY Performed By: #### M 100.2200, L400.0001 ####[facility] [address] [place], [address] WBC 0 SEEN Normal 0-5 [facility] Comment on above: Order Comment: FERNANDO CTOR TO SPECIFY Performed By: #### M 100.2200, L400.0001 ####[facility] [address] [place], [address] Ankle min 3 Viewson 02-14-20 24 Ankle min 3 Views Normal [facility] Emergency Department Summary on 02-14-2024 Emergency Department Summary Normal [facility] Office Visit Reporton 2023 Office Visit Report Normal [facility] Neurology Visit Reporton Neurology Visit Report Normal [facility] Internal Medicine Office Vis iton 12-23-2023 Internal Medicine Office Visit Normal [facility] Office Visit Reporton 08-14- 2024 Office Visit Report Normal [facility] Pulmonary Visit Reporton Pulmonary Visit Report Normal [facility] Bilirubin, Directon 12-02-19 24 Bilirubin.direct [Mass/Vol] 0.08 mg/dL Normal 0.00-0.30 [facility] Comment on above: Order Comment: CMP, CBCD- , LIPID- Performed By: #### L 501.4700, L100.0100, L500.4050, L500.4100 ####[facility] [address] [place], [address] CBC W/Diff, Automatedon 11-03 Absolute Lymph 1.34 X10 3/uL Normal 0.83-4.51 [facility] Comment on above: Order Comment: CMP, CBCD- , LIPID- Performed By: #### L 501.4700, L100.0100, L500.4050, L500.4100 ####[facility] [address] [place], [address] Absolute Neut 2.3 X10 3/uL Normal 2.0-7.7 [facility] Comment on above: Order Comment: CMP, CBCD- , LIPID- Performed By: #### L 501.4700, L100.0100, L500.4050, L500.4100 ####[facility] [address] [place], [address] Basophils/100 WBC (Bld) 0.5 % Normal 0-1 [facility] Comment on above: Order Comment: CMP, CBCD- , LIPID- Performed By: #### L 501.4700, L100.0100, L500.4050, L500.4100 ####[facility] [address] [place], [address] Eosinophils/100 WBC (Bld) 4.1 % Normal 0-5 [facility] Comment on above: Order Comment: CMP, CBCD- MICHAELLE MANE Performed By: #### L 501.4700, L100.0100, L500.4050, L500.4100 ####[facility] [address] [place], [address] Erythrocyte distribution width (RBC) [Ratio] 13.2 % Normal 11.6-14.6 [facility] Comment on above: Order Comment: MYA, CBCD- MICHAELLE MANE Performed By: #### L 501.4700, L100.0100, L500.4050, L500.4100 ####[facility] [address] [place], [address] Hematocrit (Bld) [Volume fraction] 34.4 % Low 37-47 [facility] Comment on above: Order Comment: MYA, CBCD- MICHAELLE MANE Performed By: #### L 501.4700, L100.0100, L500.4050, L500.4100 ####[facility] [address] [place], [address] Hemoglobin (Bld) [Mass/Vol] 11.3 g/dL Low 12.0-15.0 [facility] Comment on above: Order Comment: CMP, CBCD- MICHAELLE MANE Performed By: #### L 501.4700, L100.0100, L500.4050, L500.4100 ####[facility] [address] [place], [address] IG% 0.500 Normal 0.0-0.9 [facility] Comment on above: Order Comment: MYA, CBCD- MICHAELLE MANE Result Comment: IG% - Immature Granulocytes (promyelocytes, myelocytes andmetamyelocytes) > 1% indicates that a LEFT SHIFT is Present. Performed By: #### L 501.4700, L100.0100, L500.4050, L500.4100 ####[facility] [address] [place], [address] Lymphocytes/100 WBC (Bld) 32.3 % Normal 19-41 [facility] Comment on above: Order Comment: CMP, CBCD- , LIPID- Performed By: #### L 501.4700, L100.0100, L500.4050, L500.4100 ####[facility] [address] [place], [address] MCH (RBC) [Entitic mass] 32.2 pg High 27.0-32.0 [facility] Comment on above: Order Comment: CMP, CBCD- , LIPIDSuellen MÁRQUEZ Performed By: #### L 501.4700, L100.0100, L500.4050, L500.4100 ####[facility] [address] [place], [address] MCHC (RBC) [Mass/Vol] 32.8 g/dL Normal 32-36 [facility] Comment on above: Order Comment: CMP, CBCD- , LIPIDSuellen MÁRQUEZ Performed By: #### L 501.4700, L100.0100, L500.4050, L500.4100 ####[facility] [address] [place], [address] MCV (RBC) [Entitic vol] 98.0 fL Normal 81-99 [facility] Comment on above: Order Comment: CMP, CBCD- MICHAELLE MANE Performed By: #### L 501.4700, L100.0100, L500.4050, L500.4100 ####[facility] [address], [address] Monocytes/100 WBC (Bld) 7.0 % Normal 0-10 [facility] Comment on above: Order Comment: CMP, CBCD- MICHAELLE MANE Performed By: #### L 501.4700, L100.0100, L500.4050, L500.4100 ####[facility] [address] [place], [address] Neutrophils/100 WBC (Bld) 55.6 % Normal 47-70 [facility] Comment on above: Order Comment: CMP, CBCD- , MICHAELLE MÁRQUEZ Performed By: #### L 501.4700, L100.0100, L500.4050, L500.4100 ####[facility] [address] [place], [address] Nucleated RBC (Bld) [#/Vol] 0 10*3/uL Normal 0-5 [facility] Comment on above: Order Comment: CMP, CBCD- MICHAELLE MANE Performed By: #### L 501.4700, L100.0100, L500.4050, L500.4100 ####[facility] [address] [place], [address] Platelet mean volume (Bld) [Entitic vol] 11.3 fL Normal 6.2-12.0 [facility] Comment on above: Order Comment: CMP, CBCD- MICHAELLE MANE Performed By: #### L 501.4700, L100.0100, L500.4050, L500.4100 ####[facility] [address] [place], [address] Platelets (Bld) [#/Vol] 207 10*3/uL Normal 150-450 [facility] Comment on above: Order Comment: CMP, CBCD- MICHAELLE MANE Performed By: #### L 501.4700, L100.0100, L500.4050, L500.4100 ####[facility] [address] [place], [address] RBC (Bld) [#/Vol] 3.51 10*6/uL Low 4.2-5.4 [facility] Comment on above: Order Comment: CMP, CBCD- , LIPID- Performed By: #### L 501.4700, L100.0100, L500.4050, L500.4100 ####[facility] [address] [place], [address] RDW SD 47.1 fl High 35.1-43.9 [facility] Comment on above: Order Comment: CMP, CBCD- , LIPID- Performed By: #### L 501.4700, L100.0100, L500.4050, L500.4100 ####[facility] [address] [place], [address] WBC (Bld) [#/Vol] 4.2 10*3/uL Low 4.4-11.0 [facility] Comment on above: Order Comment: CMP, CBCD- , LIPID- Performed By: #### L 501.4700, L100.0100, L500.4050, L500.4100 ####[facility] [address] [place], [address] Comprehensive Metabolic Prof [facility] 12-02-2023 Albumin [Mass/Vol] 3.0 g/dL Low 3.2-5.0 [facility] Comment on above: Order Comment: CMP, CBCD- , LIPID- Performed By: #### L 501.4700, L100.0100, L500.4050, L500.4100 ####[facility] [address] [place], [address] Albumin/Globulin [Mass ratio] 0.8 {ratio} Low 0.9-2.4 [facility] Comment on above: Order Comment: CMP, CBCD- , LIPIDSuellen MÁRQUEZ Performed By: #### L 501.4700, L100.0100, L500.4050, L500.4100 ####[facility] [address] [place], [address] ALK P 70 U/L Normal 45-117 [facility] Comment on above: Order Comment: CMP, CBCD- , MICHAELLE MÁRQUEZ Performed By: #### L 501.4700, L100.0100, L500.4050, L500.4100 ####[facility] [address] [place], [address] ALT [Catalytic activity/Vol] 23 U/L Normal 13-56 [facility] Comment on above: Order Comment: CMP, CBCD- MICHAELLE MANE Performed By: #### L 501.4700, L100.0100, L500.4050, L500.4100 ####[facility] [address] [place], [address] AST [Catalytic activity/Vol] 14 U/L Low 15-37 [facility] Comment on above: Order Comment: CMP, CBCD- MICHAELLE MANE Performed By: #### L 501.4700, L100.0100, L500.4050, L500.4100 ####[facility] [address] [place], [address] BUN/CRE 15.6 RATIO Normal 10-20 [facility] Comment on above: Order Comment: MYA, CBCD- MICHAELLE MANE Performed By: #### L 501.4700, L100.0100, L500.4050, L500.4100 ####[facility] [address] [place], [address] CA,Total 8.4 mg/dL Low 8.5-10.1 [facility] Comment on above: Order Comment: CMP, CBCD- , LIPID- Performed By: #### L 501.4700, L100.0100, L500.4050, L500.4100 ####[facility] [address] [place], [address] Chloride [Moles/Vol] 112 mmol/L High 98-107 [facility] Comment on above: Order Comment: CMP, CBCD- , LIPID- Performed By: #### L 501.4700, L100.0100, L500.4050, L500.4100 ####[facility] [address] [place], [address] CO2 [Moles/Vol] 28.0 mmol/L Normal 21.0-32.0 [facility] Comment on above: Order Comment: CMP, CBCD- , LIPID- Performed By: #### L 501.4700, L100.0100, L500.4050, L500.4100 ####[facility] [address] [place], [address] Creatinine [Mass/Vol] 0.96 mg/dL Normal 0.55-1.02 [facility] Comment on above: Order Comment: CMP, CBCD- , LIPID- Result Comment: The validity of the calculated GFR GFRAA in patients over70 years has not been determined. Clinical correlation isessential. Performed By: #### L 501.4700, L100.0100, L500.4050, L500.4100 ####[facility] [address] [place], [address] EST GFR - AA 74 mL/min Normal >60 [facility] Comment on above: Order Comment: ED ROQUE- , MICHAELLE MÁRQUEZ Result Comment: Afri can [place] GFR Calc Performed By: #### L 501.4700, L100.0100, L500.4050, L500.4100 ####[facility] [address] [place], [address] GAP 4 Low 5-15 [facility] Comment on above: Order Comment: ED ROQUE- , MICHAELLE MÁRQUEZ Performed By: #### L 501.4700, L100.0100, L500.4050, L500.4100 ####[facility] [address] [place], [address] GFR/1.73 sq M.predicted among non-blacks MDRD (S/P/Bld) [Vol rate/Area] 61 mL/min/{1.73_m2} Normal >60 [facility] Comment on above: Order Comment: STAR ROQUE LIPID- DR.ROOF Result Comment: Non- GFR Calc Performed By: #### L 501.4700, L100.0100, L500.4050, L500.4100 ####[facility] [address] [place], [address] Globulin (S) [Mass/Vol] 3.8 g/dL Normal 2.2-4.2 [facility] Comment on above: Order Comment: ED ROQUE- MICHAELLE MANE Performed By: #### L 501.4700, L100.0100, L500.4050, L500.4100 ####[facility] [address] [place], [address] Glucose [Mass/Vol] 126 mg/dL High 74-106 [facility] Comment on above: Order Comment: STAR ROQUE LIPID- DR.ROOF Result Comment: Fast ing Glucose result greater than or equal to 126 mg/dLsuggests DIABETES MELLITUS per A.D.A. criteria. Performed By: #### L 501.4700, L100.0100, L500.4050, L500.4100 ####[facility] [address] [place], [address] Potassium [Moles/Vol] 3.9 mmol/L Normal 3.5-5.1 [facility] Comment on above: Order Comment: CMP, CBCD- , LIPID- Performed By: #### L 501.4700, L100.0100, L500.4050, L500.4100 ####[facility] [address] [place], [address] Sodium [Moles/Vol] 144 mmol/L Normal 136-145 [facility] Comment on above: Order Comment: MYA, CBCD- , LIPIDSuellen MÁRQUEZ Performed By: #### L 501.4700, L100.0100, L500.4050, L500.4100 ####[facility] [address] [place], [address] T BILI < 0.10 Low 0.20-1.00 [facility] Comment on above: Order Comment: MYA, CBCD- , LIPID- Result Comment: For patients on eltrombopag therapy, use of Dimension [place] TBIL is not recommended. Performed By: #### L 501.4700, L100.0100, L500.4050, L500.4100 ####[facility] [address] [place], [address] T PROT 6.8 g/dL Normal 6.4-8.2 [facility] Comment on above: Order Comment: MYA, CBCD- , LIPIDSuellen MÁRQUEZ Performed By: #### L 501.4700, L100.0100, L500.4050, L500.4100 ####[facility] [address] [place], [address] Urea nitrogen [Mass/Vol] 15 mg/dL Normal 7-18 [facility] Comment on above: Order Comment: CMP, CBCD- , LIPID- Performed By: #### L 501.4700, L100.0100, L500.4050, L500.4100 ####[facility] [address] [place], [address] Internal Medicine Office Vis iton 12-02-2023 Internal Medicine Office Visit Normal [facility] Lipid Profileon 12-02-2023 Cholesterol [Mass/Vol] 155 mg/dL Normal 200 [facility] Comment on above: Order Comment: CMP, CBCD- , LIPID- Result Comment: <200 mg/dL Desirable 200-240 mg/dL Borderline >240 mg/dL High Risk Performed By: #### L 501.4700, L100.0100, L500.4050, L500.4100 ####[facility] [address] [place], [address] Cholesterol in HDL [Mass/Vol] 56 mg/dL Normal [facility] Comment on above: Order Comment: CMP, CBCD- , LIPID- Result Comment: The drugs N-Acetylcysteine and Metamizole may falselydepress this assay. Reference Range HDL <40 mg/dL Low HDL Cholesterol HDL >or= 60 mg/dL High HDL Cholesterol Performed By: #### L 501.4700, L100.0100, L500.4050, L500.4100 ####[facility] [address] [place], [address] Cholesterol in LDL [Mass/Vol] 85 mg/dL Normal 0-130 [facility] Comment on above: Order Comment: CMP, CBCD- , LIPID- Performed By: #### L 501.4700, L100.0100, L500.4050, L500.4100 ####[facility] [address] [place], [address] Cholesterol in VLDL [Mass/Vol] 14 mg/dL Normal 5-40 [facility] Comment on above: Order Comment: CMP, CBCD- , LIPID- Performed By: #### L 501.4700, L100.0100, L500.4050, L500.4100 ####[facility] [address] [place], [address] Triglyceride [Mass/Vol] 72 mg/dL Normal [facility] Comment on above: Order Comment: CMP, CBCD- , LIPID- Result Comment: The drugs N-Acetylcysteine and Metamizole may falselydepress this assay.Serum Triglycerides Reference Interval Normal <150 mg/dL Borderline high 150 - 199 mg/dL High 200 - 499 mg/dL Very High > or = 500 mg/dL Performed By: #### L 501.4700, L100.0100, L500.4050, L500.4100 ####[facility] [address] [place], [address] Comprehensive Metabolic Prof ilon 11-24-2023 ALB Normal 3.2-5.0 [facility] Comment on above: Result Comment: Canc elled via OM: Order cancelled - Patient discharged Performed By: #### L 500.4050 ####[facility] [address] [place], [address] ALK P Normal 45-117 [facility] Comment on above: Result Comment: Canc elled via OM: Order cancelled - Patient discharged Performed By: #### L 500.4050 ####[facility] [address] [place], [address] ALT Normal 13-56 [facility] Comment on above: Result Comment: Canc elled via OM: Order cancelled - Patient discharged Performed By: #### L 500.4050 ####[facility] [address] [place], [address] AST Normal 15-37 [facility] Comment on above: Result Comment: Canc elled via OM: Order cancelled - Patient discharged Performed By: #### L 500.4050 ####[facility] [address] [place], [address] BUN Normal 7-18 [facility] Comment on above: Result Comment: Canc elled via OM: Order cancelled - Patient discharged Performed By: #### L 500.4050 ####[facility] [address] [place], [address] BUN/CRE Normal 10-20 [facility] Comment on above: Result Comment: Canc elled via OM: Order cancelled - Patient discharged Performed By: #### L 500.4050 ####[facility] [address] [place], [address] CA,Total Normal 8.5-10.1 [facility] Comment on above: Result Comment: Canc elled via OM: Order cancelled - Patient discharged Performed By: #### L 500.4050 ####[facility] [address] [place], [address] CL Normal 98-107 [facility] Comment on above: Result Comment: Canc elled via OM: Order cancelled - Patient discharged Performed By: #### L 500.4050 ####[facility] [address] [place], [address] CO2 Normal 21.0-32.0 [facility] Comment on above: Result Comment: Canc elled via OM: Order cancelled - Patient discharged Performed By: #### L 500.4050 ####[facility] [address] [place], [address] CREAT,SERUM Normal 0.55-1.02 [facility] Comment on above: Result Comment: Canc elled via OM: Order cancelled - Patient discharged Performed By: #### L 500.4050 ####[facility] [address] [place], [address] EST GFR Normal >60 [facility] Comment on above: Result Comment: Canc elled via OM: Order cancelled - Patient discharged Performed By: #### L 500.4050 ####[facility] [address] [place], [address] EST GFR - AA Normal >60 [facility] Comment on above: Result Comment: Canc elled via OM: Order cancelled - Patient discharged Performed By: #### L 500.4050 ####[facility] [address] [place], [address] GAP Normal 5-15 [facility] Comment on above: Result Comment: Canc elled via OM: Order cancelled - Patient discharged Performed By: #### L 500.4050 ####[facility] [address] [place], [address] GLU Normal 74-106 [facility] Comment on above: Result Comment: Canc elled via OM: Order cancelled - Patient discharged Performed By: #### L 500.4050 ####[facility] [address] [place], [address] Potassium Normal 3.5-5.1 [facility] Comment on above: Result Comment: Canc elled via OM: Order cancelled - Patient discharged Performed By: #### L 500.4050 ####[facility] [address] [place], [address] T BILI Normal 0.20-1.00 [facility] Comment on above: Result Comment: Canc elled via OM: Order cancelled - Patient discharged Performed By: #### L 500.4050 ####[facility] [address] [place], [address] T PROT Normal 6.4-8.2 [facility] Comment on above: Result Comment: Canc elled via OM: Order cancelled - Patient discharged Performed By: #### L 500.4050 ####[facility] [address] [place], [address] Comprehensive Metabolic Profil Normal 136-145 [facility] Comment on above: Result Comment: Canc elled via OM: Order cancelled - Patient discharged Performed By: #### L 500.4050 ####[facility] [address] [place], [address] Culture, Blood (WB)on 2023 CUB No growth in 5 days. Normal [facility] Comment on above: Performed By: #### M 200.1000 ####[facility] [address] [place], [address] CBC W/Diff, Automatedon - Absolute Neut Normal 2.0-7.7 [facility] Comment on above: Result Comment: Canc elled via OM: Order cancelled - Patient discharged Performed By: #### L 100.0100, L500.2500 ####[facility] [address] [place], [address] HCT Normal 37-47 [facility] Comment on above: Result Comment: Canc elled via OM: Order cancelled - Patient discharged Performed By: #### L 100.0100, L500.2500 ####[facility] [address] [place], [address] HGB Normal 12.0-15.0 [facility] Comment on above: Result Comment: Canc elled via OM: Order cancelled - Patient discharged Performed By: #### L 100.0100, L500.2500 ####[facility] [address] [place], [address] MCH Normal 27.0-32.0 [facility] Comment on above: Result Comment: Canc elled via OM: Order cancelled - Patient discharged Performed By: #### L 100.0100, L500.2500 ####[facility] [address] [place], [address] MCHC Normal 32-36 [facility] Comment on above: Result Comment: Canc elled via OM: Order cancelled - Patient discharged Performed By: #### L 100.0100, L500.2500 ####[facility] [address] [place], [address] MCV Normal 81-99 [facility] Comment on above: Result Comment: Canc elled via OM: Order cancelled - Patient discharged Performed By: #### L 100.0100, L500.2500 ####[facility] [address] [place], [address] NEUT% Normal 47-70 [facility] Comment on above: Result Comment: Canc elled via OM: Order cancelled - Patient discharged Performed By: #### L 100.0100, L500.2500 ####[facility] [address] [place], [address] PLT Normal 150-450 [facility] Comment on above: Result Comment: Canc elled via OM: Order cancelled - Patient discharged Performed By: #### L 100.0100, L500.2500 ####[facility] [address] [place], [address] RBC Normal 4.2-5.4 [facility] Comment on above: Result Comment: Canc elled via OM: Order cancelled - Patient discharged Performed By: #### L 100.0100, L500.2500 ####[facility] [address] [place], [address] RDW CV Normal 11.6-14.6 [facility] Comment on above: Result Comment: Canc elled via OM: Order cancelled - Patient discharged Performed By: #### L 100.0100, L500.2500 ####[facility] [address] [place], [address] RDW SD Normal 35.1-43.9 [facility] Comment on above: Result Comment: Canc elled via OM: Order cancelled - Patient discharged Performed By: #### L 100.0100, L500.2500 ####[facility] [address] [place], [address] WBC Normal 4.4-11.0 [facility] Comment on above: Result Comment: Canc elled via OM: Order cancelled - Patient discharged Performed By: #### L 100.0100, L500.2500 ####[facility] [address] [place], [address] Comprehensive Metabolic Prof ilon 11-23-2023 ALB Normal 3.2-5.0 [facility] Comment on above: Result Comment: Canc elled via OM: Order cancelled - Patient discharged Performed By: #### L 500.4050 ####[facility] [address] [place], [address] ALK P Normal 45-117 [facility] Comment on above: Result Comment: Canc elled via OM: Order cancelled - Patient discharged Performed By: #### L 500.4050 ####[facility] [address] [place], [address] ALT Normal 13-56 [facility] Comment on above: Result Comment: Canc elled via OM: Order cancelled - Patient discharged Performed By: #### L 500.4050 ####[facility] [address] [place], [address] AST Normal 15-37 [facility] Comment on above: Result Comment: Canc elled via OM: Order cancelled - Patient discharged Performed By: #### L 500.4050 ####[facility] [address] [place], [address] BUN Normal 7-18 [facility] Comment on above: Result Comment: Canc elled via OM: Order cancelled - Patient discharged Performed By: #### L 500.4050 ####[facility] [address] [place], [address] Result Comment: Canc elled via OM: MD Ordered Performed By: #### L 100.0100, L500.2500 ####[facility] [address] [place], [address] BUN/CRE Normal 10-20 [facility] Comment on above: Result Comment: Canc elled via OM: Order cancelled - Patient discharged Performed By: #### L 500.4050 ####[facility] [address] [place], [address] Result Comment: Canc elled via OM: MD Ordered Performed By: #### L 100.0100, L500.2500 ####[facility] [address] [place], [address] CA,Total Normal 8.5-10.1 [facility] Comment on above: Result Comment: Canc elled via OM: Order cancelled - Patient discharged Performed By: #### L 500.4050 ####[facility] [address] [place], [address] Result Comment: Canc elled via OM: MD Ordered Performed By: #### L 100.0100, L500.2500 ####[facility] [address] [place], [address] CL Normal 98-107 [facility] Comment on above: Result Comment: Canc elled via OM: Order cancelled - Patient discharged Performed By: #### L 500.4050 ####[facility] [address] [place], [address] Result Comment: Canc elled via OM: MD Ordered Performed By: #### L 100.0100, L500.2500 ####[facility] [address] [place], [address] CO2 Normal 21.0-32.0 [facility] Comment on above: Result Comment: Canc elled via OM: Order cancelled - Patient discharged Performed By: #### L 500.4050 ####[facility] [address] [place], [address] Result Comment: Canc elled via OM: MD Ordered Performed By: #### L 100.0100, L500.2500 ####[facility] [address] [place], [address] CREAT,SERUM Normal 0.55-1.02 [facility] Comment on above: Result Comment: Canc elled via OM: Order cancelled - Patient discharged Performed By: #### L 500.4050 ####[facility] [address] [place], [address] Result Comment: Canc elled via OM: MD Ordered Performed By: #### L 100.0100, L500.2500 ####[facility] [address] [place], [address] EST GFR Normal >60 [facility] Comment on above: Result Comment: Canc elled via OM: Order cancelled - Patient discharged Performed By: #### L 500.4050 ####[facility] [address] [place], [address] Result Comment: Canc elled via OM: MD Ordered Performed By: #### L 100.0100, L500.2500 ####[facility] [address] [place], [address] EST GFR - AA Normal >60 [facility] Comment on above: Result Comment: Canc elled via OM: Order cancelled - Patient discharged Performed By: #### L 500.4050 ####[facility] [address] [place], [address] Result Comment: Canc elled via OM: MD Ordered Performed By: #### L 100.0100, L500.2500 ####[facility] [address] [place], [address] GAP Normal 5-15 [facility] Comment on above: Result Comment: Canc elled via OM: Order cancelled - Patient discharged Performed By: #### L 500.4050 ####[facility] [address] [place], [address] Result Comment: Canc elled via OM: MD Ordered Performed By: #### L 100.0100, L500.2500 ####[facility] [address] [place], [address] GLU Normal 74-106 [facility] Comment on above: Result Comment: Canc elled via OM: Order cancelled - Patient discharged Performed By: #### L 500.4050 ####[facility] [address] [place], [address] Result Comment: Canc elled via OM: MD Ordered Performed By: #### L 100.0100, L500.2500 ####[facility] [address] [place], [address] Potassium Normal 3.5-5.1 [facility] Comment on above: Result Comment: Canc elled via OM: Order cancelled - Patient discharged Performed By: #### L 500.4050 ####[facility] [address] [place], [address] Result Comment: Canc elled via OM: MD Ordered Performed By: #### L 100.0100, L500.2500 ####[facility] [address] [place], [address] T BILI Normal 0.20-1.00 [facility] Comment on above: Result Comment: Canc elled via OM: Order cancelled - Patient discharged Performed By: #### L 500.4050 ####[facility] [address] [place], [address] T PROT Normal 6.4-8.2 [facility] Comment on above: Result Comment: Canc elled via OM: Order cancelled - Patient discharged Performed By: #### L 500.4050 ####[facility] [address] [place], [address] Comprehensive Metabolic Profil Normal 136-145 [facility] Comment on above: Result Comment: Canc elled via OM: Order cancelled - Patient discharged Performed By: #### L 500.4050 ####[facility] [address] [place], [address] Result Comment: Canc elled via OM: MD Ordered Performed By: #### L 100.0100, L500.2500 ####[facility] [address] [place], [address] CBC W/Diff, Automatedon 07-2 Absolute Neut Normal 2.0-7.7 [facility] Comment on above: Result Comment: Canc elled via OM: Order cancelled - Patient discharged Performed By: #### L 100.0100, L500.2500 ####[facility] [address] [place], [address] HCT Normal 37-47 [facility] Comment on above: Result Comment: Canc elled via OM: Order cancelled - Patient discharged Performed By: #### L 100.0100, L500.2500 ####[facility] [address] [place], [address] HGB Normal 12.0-15.0 [facility] Comment on above: Result Comment: Canc elled via OM: Order cancelled - Patient discharged Performed By: #### L 100.0100, L500.2500 ####[facility] [address] [place], [address] MCH Normal 27.0-32.0 [facility] Comment on above: Result Comment: Canc elled via OM: Order cancelled - Patient discharged Performed By: #### L 100.0100, L500.2500 ####[facility] [address] [place], [address] MCHC Normal 32-36 [facility] Comment on above: Result Comment: Canc elled via OM: Order cancelled - Patient discharged Performed By: #### L 100.0100, L500.2500 ####[facility] [address] [place], [address] MCV Normal 81-99 [facility] Comment on above: Result Comment: Canc elled via OM: Order cancelled - Patient discharged Performed By: #### L 100.0100, L500.2500 ####[facility] [address] [place], [address] NEUT% Normal 47-70 [facility] Comment on above: Result Comment: Canc elled via OM: Order cancelled - Patient discharged Performed By: #### L 100.0100, L500.2500 ####[facility] [address] [place], [address] PLT Normal 150-450 [facility] Comment on above: Result Comment: Canc elled via OM: Order cancelled - Patient discharged Performed By: #### L 100.0100, L500.2500 ####[facility] [address] [place], [address] RBC Normal 4.2-5.4 [facility] Comment on above: Result Comment: Canc elled via OM: Order cancelled - Patient discharged Performed By: #### L 100.0100, L500.2500 ####[facility] [address] [place], [address] RDW CV Normal 11.6-14.6 [facility] Comment on above: Result Comment: Canc elled via OM: Order cancelled - Patient discharged Performed By: #### L 100.0100, L500.2500 ####[facility] [address] [place], [address] RDW SD Normal 35.1-43.9 [facility] Comment on above: Result Comment: Canc elled via OM: Order cancelled - Patient discharged Performed By: #### L 100.0100, L500.2500 ####[facility] [address] [place], [address] WBC Normal 4.4-11.0 [facility] Comment on above: Result Comment: Canc elled via OM: Order cancelled - Patient discharged Performed By: #### L 100.0100, L500.2500 ####[facility] [address] [place], [address] Comprehensive Metabolic Prof ilon 11-22-2023 ALB Normal 3.2-5.0 [facility] Comment on above: Result Comment: Canc elled via OM: Order cancelled - Patient discharged Performed By: #### L 500.4050 ####[facility] [address] [place], [address] ALK P Normal 45-117 [facility] Comment on above: Result Comment: Canc elled via OM: Order cancelled - Patient discharged Performed By: #### L 500.4050 ####[facility] [address] [place], [address] ALT Normal 13-56 [facility] Comment on above: Result Comment: Canc elled via OM: Order cancelled - Patient discharged Performed By: #### L 500.4050 ####[facility] [address] [place], [address] AST Normal 15-37 [facility] Comment on above: Result Comment: Canc elled via OM: Order cancelled - Patient discharged Performed By: #### L 500.4050 ####[facility] [address] [place], [address] BUN Normal 7-18 [facility] Comment on above: Result Comment: Canc elled via OM: Order cancelled - Patient discharged Performed By: #### L 500.4050 ####[facility] [address] [place], [address] Result Comment: Canc elled via OM: MD Ordered Performed By: #### L 100.0100, L500.2500 ####[facility] [address] [place], [address] BUN/CRE Normal 10-20 [facility] Comment on above: Result Comment: Canc elled via OM: Order cancelled - Patient discharged Performed By: #### L 500.4050 ####[facility] [address] [place], [address] Result Comment: Canc elled via OM: MD Ordered Performed By: #### L 100.0100, L500.2500 ####[facility] [address] [place], [address] CA,Total Normal 8.5-10.1 [facility] Comment on above: Result Comment: Canc elled via OM: Order cancelled - Patient discharged Performed By: #### L 500.4050 ####[facility] [address] [place], [address] Result Comment: Canc elled via OM: MD Ordered Performed By: #### L 100.0100, L500.2500 ####[facility] [address] [place], [address] CL Normal 98-107 [facility] Comment on above: Result Comment: Canc elled via OM: Order cancelled - Patient discharged Performed By: #### L 500.4050 ####[facility] [address] [place], [address] Result Comment: Canc elled via OM: MD Ordered Performed By: #### L 100.0100, L500.2500 ####[facility] [address] [place], [address] CO2 Normal 21.0-32.0 [facility] Comment on above: Result Comment: Canc elled via OM: Order cancelled - Patient discharged Performed By: #### L 500.4050 ####[facility] [address] [place], [address] Result Comment: Canc elled via OM: MD Ordered Performed By: #### L 100.0100, L500.2500 ####[facility] [address] [place], [address] CREAT,SERUM Normal 0.55-1.02 [facility] Comment on above: Result Comment: Canc elled via OM: Order cancelled - Patient discharged Performed By: #### L 500.4050 ####[facility] [address] [place], [address] Result Comment: Canc elled via OM: MD Ordered Performed By: #### L 100.0100, L500.2500 ####[facility] [address] [place], [address] EST GFR Normal >60 [facility] Comment on above: Result Comment: Canc elled via OM: Order cancelled - Patient discharged Performed By: #### L 500.4050 ####[facility] [address] [place], [address] Result Comment: Canc elled via OM: MD Ordered Performed By: #### L 100.0100, L500.2500 ####[facility] [address] [place], [address] EST GFR - AA Normal >60 [facility] Comment on above: Result Comment: Canc elled via OM: Order cancelled - Patient discharged Performed By: #### L 500.4050 ####[facility] [address] [place], [address] Result Comment: Canc elled via OM: MD Ordered Performed By: #### L 100.0100, L500.2500 ####[facility] [address] [place], [address] GAP Normal 5-15 [facility] Comment on above: Result Comment: Canc elled via OM: Order cancelled - Patient discharged Performed By: #### L 500.4050 ####[facility] [address] [place], [address] Result Comment: Canc elled via OM: MD Ordered Performed By: #### L 100.0100, L500.2500 ####[facility] [address] [place], [address] GLU Normal 74-106 [facility] Comment on above: Result Comment: Canc elled via OM: Order cancelled - Patient discharged Performed By: #### L 500.4050 ####[facility] [address] [place], [address] Result Comment: Canc elled via OM: MD Ordered Performed By: #### L 100.0100, L500.2500 ####[facility] [address] [place], [address] Potassium Normal 3.5-5.1 [facility] Comment on above: Result Comment: Canc elled via OM: Order cancelled - Patient discharged Performed By: #### L 500.4050 ####[facility] [address] [place], [address] Result Comment: Canc elled via OM: MD Ordered Performed By: #### L 100.0100, L500.2500 ####[facility] [address] [place], [address] T BILI Normal 0.20-1.00 [facility] Comment on above: Result Comment: Canc elled via OM: Order cancelled - Patient discharged Performed By: #### L 500.4050 ####[facility] [address] [place], [address] T PROT Normal 6.4-8.2 [facility] Comment on above: Result Comment: Canc elled via OM: Order cancelled - Patient discharged Performed By: #### L 500.4050 ####[facility] [address] [place], [address] Comprehensive Metabolic Profil Normal 136-145 [facility] Comment on above: Result Comment: Canc elled via OM: Order cancelled - Patient discharged Performed By: #### L 500.4050 ####[facility] [address] [place], [address] Result Comment: Canc elled via OM: MD Ordered Performed By: #### L 100.0100, L500.2500 ####[facility] [address] [place], [address] CBC W/Diff, Automatedon 07-2 0-2023 Absolute Neut Normal 2.0-7.7 [facility] Comment on above: Result Comment: Canc elled via OM: Order cancelled - Patient discharged Performed By: #### L 100.0100, L500.2500 ####[facility] [address] [place], [address] HCT Normal 37-47 [facility] Comment on above: Result Comment: Canc elled via OM: Order cancelled - Patient discharged Performed By: #### L 100.0100, L500.2500 ####[facility] [address] [place], [address] HGB Normal 12.0-15.0 [facility] Comment on above: Result Comment: Canc elled via OM: Order cancelled - Patient discharged Performed By: #### L 100.0100, L500.2500 ####[facility] [address] [place], [address] MCH Normal 27.0-32.0 [facility] Comment on above: Result Comment: Canc elled via OM: Order cancelled - Patient discharged Performed By: #### L 100.0100, L500.2500 ####[facility] [address] [place], [address] MCHC Normal 32-36 [facility] Comment on above: Result Comment: Canc elled via OM: Order cancelled - Patient discharged Performed By: #### L 100.0100, L500.2500 ####[facility] [address] [place], [address] MCV Normal 81-99 [facility] Comment on above: Result Comment: Canc elled via OM: Order cancelled - Patient discharged Performed By: #### L 100.0100, L500.2500 ####[facility] [address] [place], [address] NEUT% Normal 47-70 [facility] Comment on above: Result Comment: Canc elled via OM: Order cancelled - Patient discharged Performed By: #### L 100.0100, L500.2500 ####[facility] [address] [place], [address] PLT Normal 150-450 [facility] Comment on above: Result Comment: Canc elled via OM: Order cancelled - Patient discharged Performed By: #### L 100.0100, L500.2500 ####[facility] [address] [place], [address] RBC Normal 4.2-5.4 [facility] Comment on above: Result Comment: Canc elled via OM: Order cancelled - Patient discharged Performed By: #### L 100.0100, L500.2500 ####[facility] [address] [place], [address] RDW CV Normal 11.6-14.6 [facility] Comment on above: Result Comment: Canc elled via OM: Order cancelled - Patient discharged Performed By: #### L 100.0100, L500.2500 ####[facility] [address] [place], [address] RDW SD Normal 35.1-43.9 [facility] Comment on above: Result Comment: Canc elled via OM: Order cancelled - Patient discharged Performed By: #### L 100.0100, L500.2500 ####[facility] [address] [place], [address] WBC Normal 4.4-11.0 [facility] Comment on above: Result Comment: Canc elled via OM: Order cancelled - Patient discharged Performed By: #### L 100.0100, L500.2500 ####[facility] [address] [place], [address] Comprehensive Metabolic Prof ilon 11-21-2023 ALB Normal 3.2-5.0 [facility] Comment on above: Result Comment: Canc elled via OM: Order cancelled - Patient discharged Performed By: #### L 500.4050 ####[facility] [address] [place], [address] ALK P Normal 45-117 [facility] Comment on above: Result Comment: Canc elled via OM: Order cancelled - Patient discharged Performed By: #### L 500.4050 ####[facility] [address] [place], [address] ALT Normal 13-56 [facility] Comment on above: Result Comment: Canc elled via OM: Order cancelled - Patient discharged Performed By: #### L 500.4050 ####[facility] [address] [place], [address] AST Normal 15-37 [facility] Comment on above: Result Comment: Canc elled via OM: Order cancelled - Patient discharged Performed By: #### L 500.4050 ####[facility] [address] [place], [address] BUN Normal 7-18 [facility] Comment on above: Result Comment: Canc elled via OM: Order cancelled - Patient discharged Performed By: #### L 500.4050 ####[facility] [address] [place], [address] Result Comment: Canc elled via OM: MD Ordered Performed By: #### L 100.0100, L500.2500 ####[facility] [address] [place], [address] BUN/CRE Normal 10-20 [facility] Comment on above: Result Comment: Canc elled via OM: Order cancelled - Patient discharged Performed By: #### L 500.4050 ####[facility] [address] [place], [address] Result Comment: Canc elled via OM: MD Ordered Performed By: #### L 100.0100, L500.2500 ####[facility] [address] [place], [address] CA,Total Normal 8.5-10.1 [facility] Comment on above: Result Comment: Canc elled via OM: Order cancelled - Patient discharged Performed By: #### L 500.4050 ####[facility] [address] [place], [address] Result Comment: Canc elled via OM: MD Ordered Performed By: #### L 100.0100, L500.2500 ####[facility] [address] [place], [address] CL Normal 98-107 [facility] Comment on above: Result Comment: Canc elled via OM: Order cancelled - Patient discharged Performed By: #### L 500.4050 ####[facility] [address] [place], [address] Result Comment: Canc elled via OM: MD Ordered Performed By: #### L 100.0100, L500.2500 ####[facility] [address] [place], [address] CO2 Normal 21.0-32.0 [facility] Comment on above: Result Comment: Canc elled via OM: Order cancelled - Patient discharged Performed By: #### L 500.4050 ####[facility] [address] [place], [address] Result Comment: Canc elled via OM: MD Ordered Performed By: #### L 100.0100, L500.2500 ####[facility] [address] [place], [address] CREAT,SERUM Normal 0.55-1.02 [facility] Comment on above: Result Comment: Canc elled via OM: Order cancelled - Patient discharged Performed By: #### L 500.4050 ####[facility] [address] [place], [address] Result Comment: Canc elled via OM: MD Ordered Performed By: #### L 100.0100, L500.2500 ####[facility] [address] [place], [address] EST GFR Normal >60 [facility] Comment on above: Result Comment: Canc elled via OM: Order cancelled - Patient discharged Performed By: #### L 500.4050 ####[facility] [address] [place], [address] Result Comment: Canc elled via OM: MD Ordered Performed By: #### L 100.0100, L500.2500 ####[facility] [address] [place], [address] EST GFR - AA Normal >60 [facility] Comment on above: Result Comment: Canc elled via OM: Order cancelled - Patient discharged Performed By: #### L 500.4050 ####[facility] [address] [place], [address] Result Comment: Canc elled via OM: MD Ordered Performed By: #### L 100.0100, L500.2500 ####[facility] [address] [place], [address] GAP Normal 5-15 [facility] Comment on above: Result Comment: Canc elled via OM: Order cancelled - Patient discharged Performed By: #### L 500.4050 ####[facility] [address] [place], [address] Result Comment: Canc elled via OM: MD Ordered Performed By: #### L 100.0100, L500.2500 ####[facility] [address] [place], [address] GLU Normal 74-106 [facility] Comment on above: Result Comment: Canc elled via OM: Order cancelled - Patient discharged Performed By: #### L 500.4050 ####[facility] [address] [place], [address] Result Comment: Canc elled via OM: MD Ordered Performed By: #### L 100.0100, L500.2500 ####[facility] [address] [place], [address] Potassium Normal 3.5-5.1 [facility] Comment on above: Result Comment: Canc elled via OM: Order cancelled - Patient discharged Performed By: #### L 500.4050 ####[facility] [address] [place], [address] Result Comment: Canc elled via OM: MD Ordered Performed By: #### L 100.0100, L500.2500 ####[facility] [address] [place], [address] T BILI Normal 0.20-1.00 [facility] Comment on above: Result Comment: Canc elled via OM: Order cancelled - Patient discharged Performed By: #### L 500.4050 ####[facility] [address] [place], [address] T PROT Normal 6.4-8.2 [facility] Comment on above: Result Comment: Canc elled via OM: Order cancelled - Patient discharged Performed By: #### L 500.4050 ####[facility] [address] [place], [address] Comprehensive Metabolic Profil Normal 136-145 [facility] Comment on above: Result Comment: Canc elled via OM: Order cancelled - Patient discharged Performed By: #### L 500.4050 ####[facility] [address] [place], [address] Result Comment: Canc elled via OM: MD Ordered Performed By: #### L 100.0100, L500.2500 ####[facility] [address] [place], [address] Basic Metabolic Profile (BMP )on 11-20-2023 BUN Normal 7-18 [facility] Comment on above: Result Comment: Canc elled via OM: MD Ordered Performed By: #### L 500.2500, L100.0100 ####[facility] [address] [place], [address] Result Comment: Canc elled via OM: Order cancelled - Patient discharged Performed By: #### L 500.4050 ####[facility] [address] [place], [address] BUN/CRE Normal 10-20 [facility] Comment on above: Result Comment: Canc elled via OM: MD Ordered Performed By: #### L 500.2500, L100.0100 ####[facility] [address] [place], [address] Result Comment: Canc elled via OM: Order cancelled - Patient discharged Performed By: #### L 500.4050 ####[facility] [address] [place], [address] CA,Total Normal 8.5-10.1 [facility] Comment on above: Result Comment: Canc elled via OM: MD Ordered Performed By: #### L 500.2500, L100.0100 ####[facility] [address] [place], [address] Result Comment: Canc elled via OM: Order cancelled - Patient discharged Performed By: #### L 500.4050 ####[facility] [address] [place], [address] CL Normal 98-107 [facility] Comment on above: Result Comment: Canc elled via OM: MD Ordered Performed By: #### L 500.2500, L100.0100 ####[facility] [address] [place], [address] Result Comment: Canc elled via OM: Order cancelled - Patient discharged Performed By: #### L 500.4050 ####[facility] [address] [place], [address] CO2 Normal 21.0-32.0 [facility] Comment on above: Result Comment: Canc elled via OM: MD Ordered Performed By: #### L 500.2500, L100.0100 ####[facility] [address] [place], [address] Result Comment: Canc elled via OM: Order cancelled - Patient discharged Performed By: #### L 500.4050 ####[facility] [address] [place], [address] CREAT,SERUM Normal 0.55-1.02 [facility] Comment on above: Result Comment: Canc elled via OM: MD Ordered Performed By: #### L 500.2500, L100.0100 ####[facility] [address] [place], [address] Result Comment: Canc elled via OM: Order cancelled - Patient discharged Performed By: #### L 500.4050 ####[facility] [address] [place], [address] EST GFR Normal >60 [facility] Comment on above: Result Comment: Canc elled via OM: MD Ordered Performed By: #### L 500.2500, L100.0100 ####[facility] [address] [place], [address] Result Comment: Canc elled via OM: Order cancelled - Patient discharged Performed By: #### L 500.4050 ####[facility] [address] [place], [address] EST GFR - AA Normal >60 [facility] Comment on above: Result Comment: Canc elled via OM: MD Ordered Performed By: #### L 500.2500, L100.0100 ####[facility] [address] [place], [address] Result Comment: Canc elled via OM: Order cancelled - Patient discharged Performed By: #### L 500.4050 ####[facility] [address] [place], [address] GAP Normal 5-15 [facility] Comment on above: Result Comment: Canc elled via OM: MD Ordered Performed By: #### L 500.2500, L100.0100 ####[facility] [address] [place], [address] Result Comment: Canc elled via OM: Order cancelled - Patient discharged Performed By: #### L 500.4050 ####[facility] [address] [place], [address] GLU Normal 74-106 [facility] Comment on above: Result Comment: Canc elled via OM: MD Ordered Performed By: #### L 500.2500, L100.0100 ####[facility] [address] [place], [address] Result Comment: Canc elled via OM: Order cancelled - Patient discharged Performed By: #### L 500.4050 ####[facility] [address] [place], [address] Potassium Normal 3.5-5.1 [facility] Comment on above: Result Comment: Canc elled via OM: MD Ordered Performed By: #### L 500.2500, L100.0100 ####[facility] [address] [place], [address] Result Comment: Canc elled via OM: Order cancelled - Patient discharged Performed By: #### L 500.4050 ####[facility] [address] [place], [address] Basic Metabolic Profile (BMP) Normal 136-145 [facility] Comment on above: Result Comment: Canc elled via OM: MD Ordered Performed By: #### L 500.2500, L100.0100 ####[facility] [address] [place], [address] Result Comment: Canc elled via OM: Order cancelled - Patient discharged Performed By: #### L 500.4050 ####[facility] [address] [place], [address] CBC W/Diff, Automatedon 07-1 9-2024 Absolute Neut Normal 2.0-7.7 [facility] Comment on above: Result Comment: Canc elled via OM: Order cancelled - Patient discharged Performed By: #### L 500.2500, L100.0100 ####[facility] [address] [place], [address] HCT Normal 37-47 [facility] Comment on above: Result Comment: Canc elled via OM: Order cancelled - Patient discharged Performed By: #### L 500.2500, L100.0100 ####[facility] [address] [place], [address] HGB Normal 12.0-15.0 [facility] Comment on above: Result Comment: Canc elled via OM: Order cancelled - Patient discharged Performed By: #### L 500.2500, L100.0100 ####[facility] [address] [place], [address] MCH Normal 27.0-32.0 [facility] Comment on above: Result Comment: Canc elled via OM: Order cancelled - Patient discharged Performed By: #### L 500.2500, L100.0100 ####[facility] [address] [place], [address] MCHC Normal 32-36 [facility] Comment on above: Result Comment: Canc elled via OM: Order cancelled - Patient discharged Performed By: #### L 500.2500, L100.0100 ####[facility] [address] [place], [address] MCV Normal 81-99 [facility] Comment on above: Result Comment: Canc elled via OM: Order cancelled - Patient discharged Performed By: #### L 500.2500, L100.0100 ####[facility] [address] [place], [address] NEUT% Normal 47-70 [facility] Comment on above: Result Comment: Canc elled via OM: Order cancelled - Patient discharged Performed By: #### L 500.2500, L100.0100 ####[facility] [address] [place], [address] PLT Normal 150-450 [facility] Comment on above: Result Comment: Canc elled via OM: Order cancelled - Patient discharged Performed By: #### L 500.2500, L100.0100 ####[facility] [address] [place], [address] RBC Normal 4.2-5.4 [facility] Comment on above: Result Comment: Canc elled via OM: Order cancelled - Patient discharged Performed By: #### L 500.2500, L100.0100 ####[facility] [address] [place], [address] RDW CV Normal 11.6-14.6 [facility] Comment on above: Result Comment: Canc elled via OM: Order cancelled - Patient discharged Performed By: #### L 500.2500, L100.0100 ####[facility] [address] [place], [address] RDW SD Normal 35.1-43.9 [facility] Comment on above: Result Comment: Canc elled via OM: Order cancelled - Patient discharged Performed By: #### L 500.2500, L100.0100 ####[facility] [address] [place], [address] WBC Normal 4.4-11.0 [facility] Comment on above: Result Comment: Canc elled via OM: Order cancelled - Patient discharged Performed By: #### L 500.2500, L100.0100 ####[facility] [address] [place], [address] Comprehensive Metabolic Prof ilon 11-20-2023 ALB Normal 3.2-5.0 [facility] Comment on above: Result Comment: Canc elled via OM: Order cancelled - Patient discharged Performed By: #### L 500.4050 ####[facility] [address] [place], [address] ALK P Normal 45-117 [facility] Comment on above: Result Comment: Canc elled via OM: Order cancelled - Patient discharged Performed By: #### L 500.4050 ####[facility] [address] [place], [address] ALT Normal 13-56 [facility] Comment on above: Result Comment: Canc elled via OM: Order cancelled - Patient discharged Performed By: #### L 500.4050 ####[facility] [address] [place], [address] AST Normal 15-37 [facility] Comment on above: Result Comment: Canc elled via OM: Order cancelled - Patient discharged Performed By: #### L 500.4050 ####[facility] [address] [place], [address] T BILI Normal 0.20-1.00 [facility] Comment on above: Result Comment: Canc elled via OM: Order cancelled - Patient discharged Performed By: #### L 500.4050 ####[facility] [address] [place], [address] T PROT Normal 6.4-8.2 [facility] Comment on above: Result Comment: Canc elled via OM: Order cancelled - Patient discharged Performed By: #### L 500.4050 ####[facility] [address] [place], [address] CBC W/Diff, Automatedon 07- Absolute Neut Normal 2.0-7.7 [facility] Comment on above: Result Comment: Canc elled via OM: Order cancelled - Patient discharged Performed By: #### L 100.0100, L500.2500 ####[facility] [address] [place], [address] HCT Normal 37-47 [facility] Comment on above: Result Comment: Canc elled via OM: Order cancelled - Patient discharged Performed By: #### L 100.0100, L500.2500 ####[facility] [address] [place], [address] HGB Normal 12.0-15.0 [facility] Comment on above: Result Comment: Canc elled via OM: Order cancelled - Patient discharged Performed By: #### L 100.0100, L500.2500 ####[facility] [address] [place], [address] MCH Normal 27.0-32.0 [facility] Comment on above: Result Comment: Canc elled via OM: Order cancelled - Patient discharged Performed By: #### L 100.0100, L500.2500 ####[facility] [address] [place], [address] MCHC Normal 32-36 [facility] Comment on above: Result Comment: Canc elled via OM: Order cancelled - Patient discharged Performed By: #### L 100.0100, L500.2500 ####[facility] [address] [place], [address] MCV Normal 81-99 [facility] Comment on above: Result Comment: Canc elled via OM: Order cancelled - Patient discharged Performed By: #### L 100.0100, L500.2500 ####[facility] [address] [place], [address] NEUT% Normal 47-70 [facility] Comment on above: Result Comment: Canc elled via OM: Order cancelled - Patient discharged Performed By: #### L 100.0100, L500.2500 ####[facility] [address] [place], [address] PLT Normal 150-450 [facility] Comment on above: Result Comment: Canc elled via OM: Order cancelled - Patient discharged Performed By: #### L 100.0100, L500.2500 ####[facility] [address] [place], [address] RBC Normal 4.2-5.4 [facility] Comment on above: Result Comment: Canc elled via OM: Order cancelled - Patient discharged Performed By: #### L 100.0100, L500.2500 ####[facility] [address] [place], [address] RDW CV Normal 11.6-14.6 [facility] Comment on above: Result Comment: Canc elled via OM: Order cancelled - Patient discharged Performed By: #### L 100.0100, L500.2500 ####[facility] [address] [place], [address] RDW SD Normal 35.1-43.9 [facility] Comment on above: Result Comment: Canc elled via OM: Order cancelled - Patient discharged Performed By: #### L 100.0100, L500.2500 ####[facility] [address] [place], [address] WBC Normal 4.4-11.0 [facility] Comment on above: Result Comment: Canc elled via OM: Order cancelled - Patient discharged Performed By: #### L 100.0100, L500.2500 ####[facility] [address] [place], [place], [id number] Comprehensive Metabolic Prof ilon 11-19-2023 ALB Normal 3.2-5.0 [facility] Comment on above: Result Comment: Canc elled via OM: Order cancelled - Patient discharged Performed By: #### L 500.4050 ####[facility] [address] [place], [address] ALK P Normal 45-117 [facility] Comment on above: Result Comment: Canc elled via OM: Order cancelled - Patient discharged Performed By: #### L 500.4050 ####[facility] [address] [place], [address] ALT Normal 13-56 [facility] Comment on above: Result Comment: Canc elled via OM: Order cancelled - Patient discharged Performed By: #### L 500.4050 ####[facility] [address] [place], [address] AST Normal 15-37 [facility] Comment on above: Result Comment: Canc elled via OM: Order cancelled - Patient discharged Performed By: #### L 500.4050 ####[facility] [address] [place], [address] BUN Normal 7-18 [facility] Comment on above: Result Comment: Canc elled via OM: Order cancelled - Patient discharged Performed By: #### L 500.4050 ####[facility] [address] [place], [address] Result Comment: Canc elled via OM: MD Ordered Performed By: #### L 100.0100, L500.2500 ####[facility] [address] [place], [address] BUN/CRE Normal 10-20 [facility] Comment on above: Result Comment: Canc elled via OM: Order cancelled - Patient discharged Performed By: #### L 500.4050 ####[facility] [address] [place], [address] Result Comment: Canc elled via OM: MD Ordered Performed By: #### L 100.0100, L500.2500 ####[facility] [address] [place], [address] CA,Total Normal 8.5-10.1 [facility] Comment on above: Result Comment: Canc elled via OM: Order cancelled - Patient discharged Performed By: #### L 500.4050 ####[facility] [address] [place], [address] Result Comment: Canc elled via OM: MD Ordered Performed By: #### L 100.0100, L500.2500 ####[facility] [address] [place], [address] CL Normal 98-107 [facility] Comment on above: Result Comment: Canc elled via OM: Order cancelled - Patient discharged Performed By: #### L 500.4050 ####[facility] [address] [place], [address] Result Comment: Canc elled via OM: MD Ordered Performed By: #### L 100.0100, L500.2500 ####[facility] [address] [place], [address] CO2 Normal 21.0-32.0 [facility] Comment on above: Result Comment: Canc elled via OM: Order cancelled - Patient discharged Performed By: #### L 500.4050 ####[facility] [address] [place], [address] Result Comment: Canc elled via OM: MD Ordered Performed By: #### L 100.0100, L500.2500 ####[facility] [address] [place], [address] CREAT,SERUM Normal 0.55-1.02 [facility] Comment on above: Result Comment: Canc elled via OM: Order cancelled - Patient discharged Performed By: #### L 500.4050 ####[facility] [address] [place], [address] Result Comment: Canc elled via OM: MD Ordered Performed By: #### L 100.0100, L500.2500 ####[facility] [address] [place], [address] EST GFR Normal >60 [facility] Comment on above: Result Comment: Canc elled via OM: Order cancelled - Patient discharged Performed By: #### L 500.4050 ####[facility] [address] [place], [address] Result Comment: Canc elled via OM: MD Ordered Performed By: #### L 100.0100, L500.2500 ####[facility] [address] [place], [address] EST GFR - AA Normal >60 [facility] Comment on above: Result Comment: Canc elled via OM: Order cancelled - Patient discharged Performed By: #### L 500.4050 ####[facility] [address] [place], [address] Result Comment: Canc elled via OM: MD Ordered Performed By: #### L 100.0100, L500.2500 ####[facility] [address] [place], [address] GAP Normal 5-15 [facility] Comment on above: Result Comment: Canc elled via OM: Order cancelled - Patient discharged Performed By: #### L 500.4050 ####[facility] [address] [place], [address] Result Comment: Canc elled via OM: MD Ordered Performed By: #### L 100.0100, L500.2500 ####[facility] [address] [place], [address] GLU Normal 74-106 [facility] Comment on above: Result Comment: Canc elled via OM: Order cancelled - Patient discharged Performed By: #### L 500.4050 ####[facility] [address] [place], [address] Result Comment: Canc elled via OM: MD Ordered Performed By: #### L 100.0100, L500.2500 ####[facility] [address] [place], [address] Potassium Normal 3.5-5.1 [facility] Comment on above: Result Comment: Canc elled via OM: Order cancelled - Patient discharged Performed By: #### L 500.4050 ####[facility] [address] [place], [address] Result Comment: Canc elled via OM: MD Ordered Performed By: #### L 100.0100, L500.2500 ####[facility] [address] [place], [address] T BILI Normal 0.20-1.00 [facility] Comment on above: Result Comment: Canc elled via OM: Order cancelled - Patient discharged Performed By: #### L 500.4050 ####[facility] [address] [place], [address] T PROT Normal 6.4-8.2 [facility] Comment on above: Result Comment: Canc elled via OM: Order cancelled - Patient discharged Performed By: #### L 500.4050 ####[facility] [address] [place], [address] Comprehensive Metabolic Profil Normal 136-145 [facility] Comment on above: Result Comment: Canc elled via OM: Order cancelled - Patient discharged Performed By: #### L 500.4050 ####[facility] [address] [place], [address] Result Comment: Canc elled via OM: MD Ordered Performed By: #### L 100.0100, L500.2500 ####[facility] [address] [place], [address] Urine Cultureon 11-19-2023 URC Normal [facility] Comment on above: Performed By: #### L 400.0001, M100.2200 ####[facility] [address] [place], [address] Bedside Glucoseon 11-18-2023 FINGERSTICK GLU 109 mg/dL High 74-106 [facility] Comment on above: Result Comment: SONAM GEMENT OF PATIENT CARE PER NURSING PROTOCOL Performed By: #### L 501.080 ####[facility] [address] [place], [address] FINGERSTICK GLU 95 mg/dL Normal 74-106 [facility] Comment on above: Result Comment: SONAM GEMENT OF PATIENT CARE PER NURSING PROTOCOL Performed By: #### L 501.080 ####[facility] [address] [place], [address] CBC W/Diff, Automatedon 11-01 Absolute Lymph 1.27 X10 3/uL Normal 0.83-4.51 [facility] Comment on above: Performed By: #### L 500.4050, L501.6710, L100.0100, L101.9900 ####[facility] [address] [place], [address] Absolute Neut 3.5 X10 3/uL Normal 2.0-7.7 [facility] Comment on above: Performed By: #### L 500.4050, L501.6710, L100.0100, L101.9900 ####[facility] [address] [place], [address] Basophils/100 WBC (Bld) 0.2 % Normal 0-1 [facility] Comment on above: Performed By: #### L 500.4050, L501.6710, L100.0100, L101.9900 ####[facility] [address] [place], [address] Eosinophils/100 WBC (Bld) 1.2 % Normal 0-5 [facility] Comment on above: Performed By: #### L 500.4050, L501.6710, L100.0100, L101.9900 ####[facility] [address] [place], [address] Erythrocyte distribution width (RBC) [Ratio] 12.6 % Normal 11.6-14.6 [facility] Comment on above: Performed By: #### L 500.4050, L501.6710, L100.0100, L101.9900 ####[facility] [address] [place], [address] Hematocrit (Bld) [Volume fraction] 30.0 % Low 37-47 [facility] Comment on above: Performed By: #### L 500.4050, L501.6710, L100.0100, L101.9900 ####[facility] [address] [place], [address] Hemoglobin (Bld) [Mass/Vol] 10.0 g/dL Low 12.0-15.0 [facility] Comment on above: Performed By: #### L 500.4050, L501.6710, L100.0100, L101.9900 ####[facility] [address] [place], [address] IG% 0.600 Normal 0.0-0.9 [facility] Comment on above: Result Comment: IG% - Immature Granulocytes (promyelocytes, myelocytes andmetamyelocytes) > 1% indicates that a LEFT SHIFT is Present. Performed By: #### L 500.4050, L501.6710, L100.0100, L101.9900 ####[facility] [address] [place], [address] Lymphocytes/100 WBC (Bld) 24.9 % Normal 19-41 [facility] Comment on above: Performed By: #### L 500.4050, L501.6710, L100.0100, L101.9900 ####[facility] [address] [place], [address] MCH (RBC) [Entitic mass] 32.3 pg High 27.0-32.0 [facility] Comment on above: Performed By: #### L 500.4050, L501.6710, L100.0100, L101.9900 ####[facility] [address] [place], [address] MCHC (RBC) [Mass/Vol] 33.3 g/dL Normal 32-36 [facility] Comment on above: Performed By: #### L 500.4050, L501.6710, L100.0100, L101.9900 ####[facility] [address] [place], [address] MCV (RBC) [Entitic vol] 96.8 fL Normal 81-99 [facility] Comment on above: Performed By: #### L 500.4050, L501.6710, L100.0100, L101.9900 ####[facility] [address] [place], [address] Monocytes/100 WBC (Bld) 4.7 % Normal 0-10 [facility] Comment on above: Performed By: #### L 500.4050, L501.6710, L100.0100, L101.9900 ####[facility] [address] [place], [address] Neutrophils/100 WBC (Bld) 68.4 % Normal 47-70 [facility] Comment on above: Performed By: #### L 500.4050, L501.6710, L100.0100, L101.9900 ####[facility] [address] [place], [address] Nucleated RBC (Bld) [#/Vol] 0 10*3/uL Normal 0-5 [facility] Comment on above: Performed By: #### L 500.4050, L501.6710, L100.0100, L101.9900 ####[facility] [address] [place], [address] Platelet mean volume (Bld) [Entitic vol] 11.9 fL Normal 6.2-12.0 [facility] Comment on above: Performed By: #### L 500.4050, L501.6710, L100.0100, L101.9900 ####[facility] [address] [place], [address] Platelets (Bld) [#/Vol] 153 10*3/uL Normal 150-450 [facility] Comment on above: Performed By: #### L 500.4050, L501.6710, L100.0100, L101.9900 ####[facility] [address] [place], [address] RBC (Bld) [#/Vol] 3.10 10*6/uL Low 4.2-5.4 [facility] Comment on above: Performed By: #### L 500.4050, L501.6710, L100.0100, L101.9900 ####[facility] [address] [place], [address] RDW SD 44.5 fl High 35.1-43.9 [facility] Comment on above: Performed By: #### L 500.4050, L501.6710, L100.0100, L101.9900 ####[facility] [address] [place], [address] WBC (Bld) [#/Vol] 5.1 10*3/uL Normal 4.4-11.0 [facility] Comment on above: Performed By: #### L 500.4050, L501.6710, L100.0100, L101.9900 ####[facility] [address] [place], [address] CRPon 11-18-2023 C-REACTIVE PROT 155.00 mg/L High 0.0-3.0 [facility] Comment on above: Result Comment: C-Re active Protein (CRP) provides useful information for thediagnosis, therapy and monitoring of inflammatory processesand associated diseases. For the evaluation of Relative Riskfor Cardiovascular Disease, a High Sensitivity CRP (HSCRP)should be ordered. Performed By: #### L 500.4050, L501.6710, L100.0100, L101.9900 ####[facility] [address] [place], [address] Comprehensive Metabolic Prof ilon 11-18-2023 Albumin [Mass/Vol] 2.5 g/dL Low 3.2-5.0 [facility] Comment on above: Performed By: #### L 500.4050, L501.6710, L100.0100, L101.9900 ####[facility] [address] [place], [address] Albumin/Globulin [Mass ratio] 0.7 {ratio} Low 0.9-2.4 [facility] Comment on above: Performed By: #### L 500.4050, L501.6710, L100.0100, L101.9900 ####[facility] [address] [place], [address] ALK P 73 U/L Normal 45-117 [facility] Comment on above: Performed By: #### L 500.4050, L501.6710, L100.0100, L101.9900 ####[facility] [address] [place], [address] ALT [Catalytic activity/Vol] 34 U/L Normal 13-56 [facility] Comment on above: Performed By: #### L 500.4050, L501.6710, L100.0100, L101.9900 ####[facility] [address] [place], [address] AST [Catalytic activity/Vol] 35 U/L Normal 15-37 [facility] Comment on above: Performed By: #### L 500.4050, L501.6710, L100.0100, L101.9900 ####[facility] [address] [place], [address] Bilirubin [Mass/Vol] 0.30 mg/dL Normal 0.20-1.00 [facility] Comment on above: Result Comment: For patients on eltrombopag therapy, use of Dimension [place] TBIL is not recommended. Performed By: #### L 500.4050, L501.6710, L100.0100, L101.9900 ####[facility] [address] [place], [address] BUN/CRE 27.4 RATIO High 10-20 [facility] Comment on above: Performed By: #### L 500.4050, L501.6710, L100.0100, L101.9900 ####[facility] [address] [place], [address] CA,Total 8.7 mg/dL Normal 8.5-10.1 [facility] Comment on above: Performed By: #### L 500.4050, L501.6710, L100.0100, L101.9900 ####[facility] [address] [place], [address] Chloride [Moles/Vol] 105 mmol/L Normal 98-107 [facility] Comment on above: Performed By: #### L 500.4050, L501.6710, L100.0100, L101.9900 ####[facility] [address] [place], [address] CO2 [Moles/Vol] 25.0 mmol/L Normal 21.0-32.0 [facility] Comment on above: Performed By: #### L 500.4050, L501.6710, L100.0100, L101.9900 ####[facility] [address] [place], [address] Creatinine [Mass/Vol] 0.91 mg/dL Normal 0.55-1.02 [facility] Comment on above: Result Comment: The validity of the calculated GFR GFRAA in patients over70 years has not been determined. Clinical correlation isessential. Performed By: #### L 500.4050, L501.6710, L100.0100, L101.9900 ####[facility] [address] [place], [address] ECRCL 54.83 ml/min Normal [facility] Comment on above: Performed By: #### L 500.4050, L501.6710, L100.0100, L101.9900 ####[facility] [address] [place], [address] EST GFR - AA 78 mL/min Normal >60 [facility] Comment on above: Result Comment: Afri can Citizen [place] GFR Calc Performed By: #### L 500.4050, L501.6710, L100.0100, L101.9900 ####[facility] [address] [place], [address] GAP 8 Normal 5-15 [facility] Comment on above: Performed By: #### L 500.4050, L501.6710, L100.0100, L101.9900 ####[facility] [address] [place], [address] GFR/1.73 sq M.predicted among non-blacks MDRD (S/P/Bld) [Vol rate/Area] 65 mL/min/{1.73_m2} Normal >60 [facility] Comment on above: Result Comment: Non- GFR Calc Performed By: #### L 500.4050, L501.6710, L100.0100, L101.9900 ####[facility] [address] [place], [address] Globulin (S) [Mass/Vol] 3.7 g/dL Normal 2.2-4.2 [facility] Comment on above: Performed By: #### L 500.4050, L501.6710, L100.0100, L101.9900 ####[facility] [address] [place], [address] Glucose [Mass/Vol] 102 mg/dL Normal 74-106 [facility] Comment on above: Result Comment: Fast ing Glucose result from 100 to 125 mg/dLsuggests IMPAIRED HOMEOSTASIS per A.D.A. criteria. Performed By: #### L 500.4050, L501.6710, L100.0100, L101.9900 ####[facility] [address] [place], [address] Potassium [Moles/Vol] 4.0 mmol/L Normal 3.5-5.1 [facility] Comment on above: Performed By: #### L 500.4050, L501.6710, L100.0100, L101.9900 ####[facility] [address] [place], [address] Sodium [Moles/Vol] 138 mmol/L Normal 136-145 [facility] Comment on above: Performed By: #### L 500.4050, L501.6710, L100.0100, L101.9900 ####[facility] [address] [place], [address] T PROT 6.2 g/dL Low 6.4-8.2 [facility] Comment on above: Performed By: #### L 500.4050, L501.6710, L100.0100, L101.9900 ####[facility] [address] [place], [address] Urea nitrogen [Mass/Vol] 25 mg/dL High 7-18 [facility] Comment on above: Performed By: #### L 500.4050, L501.6710, L100.0100, L101.9900 ####[facility] [address] [place], [address] Discharge Instructionon 11-01 Discharge Instruction Normal [facility] Erythrocyte Sed Rateon 11-17 SED RATE 25 mm/hr Normal 0-30 [facility] Comment on above: Performed By: #### L 500.4050, L501.6710, L100.0100, L101.9900 ####[facility] [address] [place], [address] MR/CON.PCM.NEon 11-18-2023 MR/CON.PCM.NE Normal [facility] Ammoniaon 11-17-2023 Ammonia (P) [Moles/Vol] 41.0 umol/L High 11-32 [facility] Comment on above: Performed By: #### L 509.7000, L101.9900, L500.3400, L503.5510, L501.6710 ####[facility] [address] [place], [address] Basic Metabolic Profile (BMP )on 11-17-2023 BUN/CRE 25.2 RATIO High 10-20 [facility] Comment on above: Performed By: #### L 100.0100, L501.8100, L500.2500 ####[facility] [address] [place], [address] CA,Total 8.5 mg/dL Normal 8.5-10.1 [facility] Comment on above: Performed By: #### L 100.0100, L501.8100, L500.2500 ####[facility] [address] [place], [address] Chloride [Moles/Vol] 105 mmol/L Normal 98-107 [facility] Comment on above: Performed By: #### L 100.0100, L501.8100, L500.2500 ####[facility] [address] [place], [address] CO2 [Moles/Vol] 26.0 mmol/L Normal 21.0-32.0 [facility] Comment on above: Performed By: #### L 100.0100, L501.8100, L500.2500 ####[facility] [address] [place], [address] Creatinine [Mass/Vol] 1.03 mg/dL High 0.55-1.02 [facility] Comment on above: Result Comment: The validity of the calculated GFR GFRAA in patients over70 years has not been determined. Clinical correlation isessential. Performed By: #### L 100.0100, L501.8100, L500.2500 ####[facility] [address] [place], [address] ECRCL 48.44 ml/min Normal [facility] Comment on above: Performed By: #### L 100.0100, L501.8100, L500.2500 ####[facility] [address] [place], [address] EST GFR - AA 68 mL/min Normal >60 [facility] Comment on above: Result Comment: Afri can [place] GFR Calc Performed By: #### L 100.0100, L501.8100, L500.2500 ####[facility] [address] [place], [address] GAP 5 Normal 5-15 [facility] Comment on above: Performed By: #### L 100.0100, L501.8100, L500.2500 ####[facility] [address] [place], [address] GFR/1.73 sq M.predicted among non-blacks MDRD (S/P/Bld) [Vol rate/Area] 56 mL/min/{1.73_m2} Low >60 [facility] Comment on above: Result Comment: Non- GFR Calc Performed By: #### L 100.0100, L501.8100, L500.2500 ####[facility] [address] [place], [address] Glucose [Mass/Vol] 119 mg/dL High 74-106 [facility] Comment on above: Result Comment: Fast ing Glucose result from 100 to 125 mg/dLsuggests IMPAIRED HOMEOSTASIS per A.D.A. criteria. Performed By: #### L 100.0100, L501.8100, L500.2500 ####[facility] [address] [place], [address] Potassium [Moles/Vol] 4.2 mmol/L Normal 3.5-5.1 [facility] Comment on above: Performed By: #### L 100.0100, L501.8100, L500.2500 ####[facility] [address] [place], [address] Sodium [Moles/Vol] 136 mmol/L Normal 136-145 [facility] Comment on above: Performed By: #### L 100.0100, L501.8100, L500.2500 ####[facility] [address] [place], [address] Urea nitrogen [Mass/Vol] 26 mg/dL High 7-18 [facility] Comment on above: Performed By: #### L 100.0100, L501.8100, L500.2500 ####[facility] [address] [place], [address] Bedside Glucoseon 11-17-2023 FINGERSTICK GLU 94 mg/dL Normal 74-106 [facility] Comment on above: Result Comment: SONAM GEMENT OF PATIENT CARE PER NURSING PROTOCOL Performed By: #### L 501.080 ####[facility] [address] [place], [address] FINGERSTICK GLU 129 mg/dL High 74-106 [facility] Comment on above: Result Comment: SONAM GEMENT OF PATIENT CARE PER NURSING PROTOCOL Performed By: #### L 501.080 ####[facility] [address] [place], [address] FINGERSTICK GLU 146 mg/dL High 74-106 [facility] Comment on above: Result Comment: SONAM GEMENT OF PATIENT CARE PER NURSING PROTOCOL Performed By: #### L 501.080 ####[facility] [address] [place], [address] FINGERSTICK GLU 101 mg/dL Normal 74-106 [facility] Comment on above: Result Comment: SONAM GEMENT OF PATIENT CARE PER NURSING PROTOCOL Performed By: #### L 501.080 ####[facility] [address] [place], [address] CBC W/Diff, Automatedon 07-05 09-2023 Absolute Lymph 1.45 X10 3/uL Normal 0.83-4.51 [facility] Comment on above: Performed By: #### L 100.0100, L501.8100, L500.2500 ####[facility] [address] [place], [address] Absolute Neut 4.8 X10 3/uL Normal 2.0-7.7 [facility] Comment on above: Performed By: #### L 100.0100, L501.8100, L500.2500 ####[facility] [address] [place], [address] Basophils/100 WBC (Bld) 0.1 % Normal 0-1 [facility] Comment on above: Performed By: #### L 100.0100, L501.8100, L500.2500 ####[facility] [address] [place], [address] Eosinophils/100 WBC (Bld) 1.0 % Normal 0-5 [facility] Comment on above: Performed By: #### L 100.0100, L501.8100, L500.2500 ####[facility] [address] [place], [address] Erythrocyte distribution width (RBC) [Ratio] 12.9 % Normal 11.6-14.6 [facility] Comment on above: Performed By: #### L 100.0100, L501.8100, L500.2500 ####[facility] [address] [place], [address] Hematocrit (Bld) [Volume fraction] 30.6 % Low 37-47 [facility] Comment on above: Performed By: #### L 100.0100, L501.8100, L500.2500 ####[facility] [address] [place], [address] Hemoglobin (Bld) [Mass/Vol] 10.0 g/dL Low 12.0-15.0 [facility] Comment on above: Performed By: #### L 100.0100, L501.8100, L500.2500 ####[facility] [address] [place], [address] IG% 0.600 Normal 0.0-0.9 [facility] Comment on above: Result Comment: IG% - Immature Granulocytes (promyelocytes, myelocytes andmetamyelocytes) > 1% indicates that a LEFT SHIFT is Present. Performed By: #### L 100.0100, L501.8100, L500.2500 ####[facility] [address] [place], [address] Lymphocytes/100 WBC (Bld) 20.3 % Normal 19-41 [facility] Comment on above: Performed By: #### L 100.0100, L501.8100, L500.2500 ####[facility] [address] [place], [address] MCH (RBC) [Entitic mass] 32.6 pg High 27.0-32.0 [facility] Comment on above: Performed By: #### L 100.0100, L501.8100, L500.2500 ####[facility] [address] [place], [address] MCHC (RBC) [Mass/Vol] 32.7 g/dL Normal 32-36 [facility] Comment on above: Performed By: #### L 100.0100, L501.8100, L500.2500 ####[facility] [address] [place], [address] MCV (RBC) [Entitic vol] 99.7 fL High 81-99 [facility] Comment on above: Performed By: #### L 100.0100, L501.8100, L500.2500 ####[facility] [address] [place], [address] Monocytes/100 WBC (Bld) 10.4 % High 0-10 [facility] Comment on above: Performed By: #### L 100.0100, L501.8100, L500.2500 ####[facility] [address] [place], [address] Neutrophils/100 WBC (Bld) 67.6 % Normal 47-70 [facility] Comment on above: Performed By: #### L 100.0100, L501.8100, L500.2500 ####[facility] [address] [place], [address] Nucleated RBC (Bld) [#/Vol] 0 10*3/uL Normal 0-5 [facility] Comment on above: Performed By: #### L 100.0100, L501.8100, L500.2500 ####[facility] [address] [place], [address] Platelet mean volume (Bld) [Entitic vol] 11.3 fL Normal 6.2-12.0 [facility] Comment on above: Performed By: #### L 100.0100, L501.8100, L500.2500 ####[facility] [address] [place], [address] Platelets (Bld) [#/Vol] 145 10*3/uL Low 150-450 [facility] Comment on above: Performed By: #### L 100.0100, L501.8100, L500.2500 ####[facility] [address] [place], [address] RBC (Bld) [#/Vol] 3.07 10*6/uL Low 4.2-5.4 [facility] Comment on above: Performed By: #### L 100.0100, L501.8100, L500.2500 ####[facility] [address] [place], [address] RDW SD 46.5 fl High 35.1-43.9 [facility] Comment on above: Performed By: #### L 100.0100, L501.8100, L500.2500 ####[facility] [address] [place], [address] WBC (Bld) [#/Vol] 7.1 10*3/uL Normal 4.4-11.0 [facility] Comment on above: Performed By: #### L 100.0100, L501.8100, L500.2500 ####[facility] [address] [place], [address] CRPon 11-17-2023 C-REACTIVE PROT 161.00 mg/L High 0.0-3.0 [facility] Comment on above: Result Comment: C-Re active Protein (CRP) provides useful information for thediagnosis, therapy and monitoring of inflammatory processesand associated diseases. For the evaluation of Relative Riskfor Cardiovascular Disease, a High Sensitivity CRP (HSCRP)should be ordered. Performed By: #### L 509.7000, L101.9900, L500.3400, L503.5510, L501.6710 ####[facility] [address] [place], [address] Erythrocyte Sed Rateon 11-16 SED RATE 19 mm/hr Normal 0-30 [facility] Comment on above: Performed By: #### L 509.7000, L101.9900, L500.3400, L503.5510, L501.6710 ####[facility] [address] [place], [address] Liver Profileon 11-17-2023 Albumin [Mass/Vol] 2.6 g/dL Low 3.2-5.0 [facility] Comment on above: Performed By: #### L 509.7000, L101.9900, L500.3400, L503.5510, L501.6710 ####[facility] [address] [place], [address] ALK P 50 U/L Normal 45-117 [facility] Comment on above: Performed By: #### L 509.7000, L101.9900, L500.3400, L503.5510, L501.6710 ####[facility] [address] [place], [address] ALT [Catalytic activity/Vol] 14 U/L Normal 13-56 [facility] Comment on above: Performed By: #### L 509.7000, L101.9900, L500.3400, L503.5510, L501.6710 ####[facility] [address] [place], [address] AST [Catalytic activity/Vol] 10 U/L Low 15-37 [facility] Comment on above: Performed By: #### L 509.7000, L101.9900, L500.3400, L503.5510, L501.6710 ####[facility] [address] [place], [address] Bilirubin [Mass/Vol] 0.30 mg/dL Normal 0.20-1.00 [facility] Comment on above: Result Comment: For patients on eltrombopag therapy, use of Dimension [place] TBIL is not recommended. Performed By: #### L 509.7000, L101.9900, L500.3400, L503.5510, L501.6710 ####[facility] [address] [place], [address] Bilirubin.direct [Mass/Vol] 0.11 mg/dL Normal 0.00-0.30 [facility] Comment on above: Performed By: #### L 509.7000, L101.9900, L500.3400, L503.5510, L501.6710 ####[facility] [address] [place], [address] Globulin (S) [Mass/Vol] 3.7 g/dL Normal 2.2-4.2 [facility] Comment on above: Performed By: #### L 509.7000, L101.9900, L500.3400, L503.5510, L501.6710 ####[facility] [address] [place], [address] T PROT 6.3 g/dL Low 6.4-8.2 [facility] Comment on above: Performed By: #### L 509.7000, L101.9900, L500.3400, L503.5510, L501.6710 ####[facility] [address] [place], [address] Procalcitoninon 11-17-2023 Procalcitonin 0.08 ng/mL Normal 0.00-0.09 [facility] Comment on above: Result Comment: A pr [...] #### L 509.7000, L101.9900, L500.3400, L503.5510, L501.6710 ####[facility] [address] [place], [address] Urinalysis, Completeon 11-16 WBC 0-5 SEEN Normal 0-5 [facility] Comment on above: Order Comment: CLEAN CATCH Performed By: #### L 400.0001, M1 ####[facility] [address] [place], [address] BACTERIA 0 SEEN Normal None Seen [facility] Comment on above: Order Comment: CLEAN CATCH Performed By: #### L 400.0001, M1.0 ####[facility] [address] [place], [address] EPI,SQUAMOUS 0 SEEN Normal 5-10 [facility] Comment on above: Order Comment: CLEAN CATCH Performed By: #### L 400.0001, M1.0 ####[facility] [address] [place], [address] Mucus Ql (Urine sed) 0 SEEN Normal [facility] Comment on above: Order Comment: CLEAN CATCH Performed By: #### L 400.0001, M1.2199 ####[facility] [address] [place], [address] RBC 0 SEEN Normal 0-5 [facility] Comment on above: Order Comment: CLEAN CATCH Performed By: #### L 400.0001, M100.2200 ####[facility] [address] [place], [address] Valproic Acid (Depakene) Lev tommy 11-17-2023 VALPROIC ACID 131 ug/mL High 50-100 [facility] Comment on above: Order Comment: Comme nts: before AM depakote Performed By: #### L 100.0100, L501.8100, L500.2500 ####[facility] [address] [place], [address] Basic Metabolic Profile (BMP )on 11-16-2023 BUN/CRE 23.7 RATIO High 10-20 [facility] Comment on above: Performed By: #### L 501.5200, L500.2500, L100.0100, L501.2300, L501.9985 ####[facility] [address] [place], [address] CA,Total 8.5 mg/dL Normal 8.5-10.1 [facility] Comment on above: Performed By: #### L 501.5200, L500.2500, L100.0100, L501.2300, L501.9985 ####[facility] [address] [place], [address] Chloride [Moles/Vol] 105 mmol/L Normal 98-107 [facility] Comment on above: Performed By: #### L 501.5200, L500.2500, L100.0100, L501.2300, L501.9985 ####[facility] [address] [place], [address] CO2 [Moles/Vol] 26.0 mmol/L Normal 21.0-32.0 [facility] Comment on above: Performed By: #### L 501.5200, L500.2500, L100.0100, L501.2300, L501.9985 ####[facility] [address] [place], [address] Creatinine [Mass/Vol] 0.84 mg/dL Normal 0.55-1.02 [facility] Comment on above: Result Comment: The validity of the calculated GFR GFRAA in patients over70 years has not been determined. Clinical correlation isessential. Performed By: #### L 501.5200, L500.2500, L100.0100, L501.2300, L501.9985 ####[facility] [address] [place], [address] ECRCL 59.48 ml/min Normal [facility] Comment on above: Performed By: #### L 501.5200, L500.2500, L100.0100, L501.2300, L501.9985 ####[facility] [address] [place], [address] EST GFR - AA 86 mL/min Normal >60 [facility] Comment on above: Result Comment: Afri can [place] GFR Calc Performed By: #### L 501.5200, L500.2500, L100.0100, L501.2300, L501.9985 ####[facility] [address] [place], [address] GAP 6 Normal 5-15 [facility] Comment on above: Performed By: #### L 501.5200, L500.2500, L100.0100, L501.2300, L501.9985 ####[facility] [address] [place], [address] GFR/1.73 sq M.predicted among non-blacks MDRD (S/P/Bld) [Vol rate/Area] 71 mL/min/{1.73_m2} Normal >60 [facility] Comment on above: Result Comment: Non- GFR Calc Performed By: #### L 501.5200, L500.2500, L100.0100, L501.2300, L501.9985 ####[facility] [address] [place], [address] Glucose [Mass/Vol] 121 mg/dL High 74-106 [facility] Comment on above: Result Comment: Fast ing Glucose result from 100 to 125 mg/dLsuggests IMPAIRED HOMEOSTASIS per A.D.A. criteria. Performed By: #### L 501.5200, L500.2500, L100.0100, L501.2300, L501.9985 ####[facility] [address] [place], [address] Potassium [Moles/Vol] 4.1 mmol/L Normal 3.5-5.1 [facility] Comment on above: Performed By: #### L 501.5200, L500.2500, L100.0100, L501.2300, L501.9985 ####[facility] [address] [place], [address] Sodium [Moles/Vol] 137 mmol/L Normal 136-145 [facility] Comment on above: Performed By: #### L 501.5200, L500.2500, L100.0100, L501.2300, L501.9985 ####[facility] [address] [place], [address] Urea nitrogen [Mass/Vol] 20 mg/dL High 7-18 [facility] Comment on above: Performed By: #### L 501.5200, L500.2500, L100.0100, L501.2300, L501.9985 ####[facility] [address] [place], [address] Bedside Glucoseon 11-16-2023 FINGERSTICK GLU 84 mg/dL Normal 74-106 [facility] Comment on above: Result Comment: SONAM GEMENT OF PATIENT CARE PER NURSING PROTOCOL Performed By: #### L 501.080 ####[facility] [address] [place], [address] FINGERSTICK GLU 123 mg/dL High 74-106 [facility] Comment on above: Result Comment: SONAM GEMENT OF PATIENT CARE PER NURSING PROTOCOL Performed By: #### L 501.080 ####[facility] [address] [place], [address] FINGERSTICK GLU 138 mg/dL High 74-106 [facility] Comment on above: Result Comment: SONAM GEMENT OF PATIENT CARE PER NURSING PROTOCOL Performed By: #### L 501.080 ####[facility] [address] [place], [address] FINGERSTICK GLU 106 mg/dL Normal 74-106 [facility] Comment on above: Result Comment: SONAM GEMENT OF PATIENT CARE PER NURSING PROTOCOL Performed By: #### L 501.080 ####[facility] [address] [place], [address] CBC W/Diff, Automatedon 07-05 08-2023 Absolute Lymph 1.49 X10 3/uL Normal 0.83-4.51 [facility] Comment on above: Performed By: #### L 501.5200, L500.2500, L100.0100, L501.2300, L501.9985 ####[facility] [address] [place], [address] Absolute Neut 4.3 X10 3/uL Normal 2.0-7.7 [facility] Comment on above: Performed By: #### L 501.5200, L500.2500, L100.0100, L501.2300, L501.9985 ####[facility] [address] [place], [address] Basophils/100 WBC (Bld) 0.1 % Normal 0-1 [facility] Comment on above: Performed By: #### L 501.5200, L500.2500, L100.0100, L501.2300, L501.9985 ####[facility] [address] [place], [address] Eosinophils/100 WBC (Bld) 1.2 % Normal 0-5 [facility] Comment on above: Performed By: #### L 501.5200, L500.2500, L100.0100, L501.2300, L501.9985 ####[facility] [address] [place], [address] Erythrocyte distribution width (RBC) [Ratio] 13.0 % Normal 11.6-14.6 [facility] Comment on above: Performed By: #### L 501.5200, L500.2500, L100.0100, L501.2300, L501.9985 ####[facility] [address] [place], [address] Hematocrit (Bld) [Volume fraction] 34.7 % Low 37-47 [facility] Comment on above: Performed By: #### L 501.5200, L500.2500, L100.0100, L501.2300, L501.9985 ####[facility] [address] [place], [address] Hemoglobin (Bld) [Mass/Vol] 11.5 g/dL Low 12.0-15.0 [facility] Comment on above: Performed By: #### L 501.5200, L500.2500, L100.0100, L501.2300, L501.9985 ####[facility] [address] [place], [address] IG% 0.100 Normal 0.0-0.9 [facility] Comment on above: Result Comment: IG% - Immature Granulocytes (promyelocytes, myelocytes andmetamyelocytes) > 1% indicates that a LEFT SHIFT is Present. Performed By: #### L 501.5200, L500.2500, L100.0100, L501.2300, L501.9985 ####[facility] [address] [place], [address] Lymphocytes/100 WBC (Bld) 22.0 % Normal 19-41 [facility] Comment on above: Performed By: #### L 501.5200, L500.2500, L100.0100, L501.2300, L501.9985 ####[facility] [address] [place], [address] MCH (RBC) [Entitic mass] 32.8 pg High 27.0-32.0 [facility] Comment on above: Performed By: #### L 501.5200, L500.2500, L100.0100, L501.2300, L501.9985 ####[facility] [address] [place], [address] MCHC (RBC) [Mass/Vol] 33.1 g/dL Normal 32-36 [facility] Comment on above: Performed By: #### L 501.5200, L500.2500, L100.0100, L501.2300, L501.9985 ####[facility] [address] [place], [address] MCV (RBC) [Entitic vol] 98.9 fL Normal 81-99 [facility] Comment on above: Performed By: #### L 501.5200, L500.2500, L100.0100, L501.2300, L501.9985 ####[facility] [address] [place], [address] Monocytes/100 WBC (Bld) 13.9 % High 0-10 [facility] Comment on above: Performed By: #### L 501.5200, L500.2500, L100.0100, L501.2300, L501.9985 ####[facility] [address] [place], [address] Neutrophils/100 WBC (Bld) 62.7 % Normal 47-70 [facility] Comment on above: Performed By: #### L 501.5200, L500.2500, L100.0100, L501.2300, L501.9985 ####[facility] [address] [place], [address] Nucleated RBC (Bld) [#/Vol] 0 10*3/uL Normal 0-5 [facility] Comment on above: Performed By: #### L 501.5200, L500.2500, L100.0100, L501.2300, L501.9985 ####[facility] [address] [place], [address] Platelet mean volume (Bld) [Entitic vol] 11.5 fL Normal 6.2-12.0 [facility] Comment on above: Performed By: #### L 501.5200, L500.2500, L100.0100, L501.2300, L501.9985 ####[facility] [address] [place], [address] Platelets (Bld) [#/Vol] 141 10*3/uL Low 150-450 [facility] Comment on above: Performed By: #### L 501.5200, L500.2500, L100.0100, L501.2300, L501.9985 ####[facility] [address] [place], [address] RBC (Bld) [#/Vol] 3.51 10*6/uL Low 4.2-5.4 [facility] Comment on above: Performed By: #### L 501.5200, L500.2500, L100.0100, L501.2300, L501.9985 ####[facility] [address] [place], [address] RDW SD 47.1 fl High 35.1-43.9 [facility] Comment on above: Performed By: #### L 501.5200, L500.2500, L100.0100, L501.2300, L501.9985 ####[facility] [address] [place], [address] WBC (Bld) [#/Vol] 6.8 10*3/uL Normal 4.4-11.0 [facility] Comment on above: Performed By: #### L 501.5200, L500.2500, L100.0100, L501.2300, L501.9985 ####[facility] [address] [place], [address] Consultation - Orthopedicson 11-16-2023 Consultation - Orthopedics Normal [facility] Echo Completeon 11-16-2023 Echo Complete Normal [facility] Hemoglobin A1con 11-16-2023 HbA1c (Bld) [Mass fraction] 6.3 % High 3.8-5.6 [facility] Comment on above: Result Comment: Norm al < 5.7 % Prediabetic 5.7 - 6.4 % Diabetic >or= 6.5 % Please note range changes. Performed By: #### L 501.5200, L500.2500, L100.0100, L501.2300, L501.9985 ####[facility] [address] [place], [address] M100.019on 11-16-2023 M100.019 Negative Normal [facility] Comment on above: Performed By: #### M 100.019, M100.638 ####[facility] [address] [place], [address] Magnesiumon 11-16-2023 Magnesium [Mass/Vol] 2.1 mg/dL Normal 1.6-2.6 [facility] Comment on above: Performed By: #### L 501.5200, L500.2500, L100.0100, L501.2300, L501.9985 ####[facility] [address] [place], [address] Phosphoruson 11-16-2023 Phosphate [Mass/Vol] 4.0 mg/dL Normal 2.5-4.9 [facility] Comment on above: Performed By: #### L 501.5200, L500.2500, L100.0100, L501.2300, L501.9985 ####[facility] [address] [place], [address] RESPIRATORY PANEL MOLECULARo n 11-16-2023 RP PANEL Normal [facility] Comment on above: Performed By: #### M 100.019, M100.638 ####[facility] [address] [place], [address] Upper Ext Joint Only(Routine )on 11-16-2023 Upper Ext Joint Only(Routine) Normal [facility] Venous Duplex US - Jovani Extre mon 11-16-2023 Venous Duplex US - Jovani Extrem Normal [facility] 12 Lead EKGon 11-15-2023 12 Lead EKG Normal [facility] BNP,B-Type NATRIURETIC PEPTI Lucina 11-15-2023 Natriuretic peptide B (Bld) [Mass/Vol] 6.6 pg/mL Normal 0-100 [facility] Comment on above: Performed By: #### L 503.6620 ####[facility] [address] [place], [address] Basic Metabolic Profile (BMP )on 11-15-2023 BUN/CRE 25.0 RATIO High 10-20 [facility] Comment on above: Order Comment: 1Y Performed By: #### L 500.2500, L300.3900, L501.5425, L100.0100, L501.5200 ####[facility] [address] [place], [address] CA,Total 8.7 mg/dL Normal 8.5-10.1 [facility] Comment on above: Order Comment: 1Y Performed By: #### L 500.2500, L300.3900, L501.5425, L100.0100, L501.5200 ####[facility] [address] [place], [address] Chloride [Moles/Vol] 109 mmol/L High 98-107 [facility] Comment on above: Order Comment: 1Y Performed By: #### L 500.2500, L300.3900, L501.5425, L100.0100, L501.5200 ####[facility] [address] [place], [address] CO2 [Moles/Vol] 21.0 mmol/L Normal 21.0-32.0 [facility] Comment on above: Order Comment: 1Y Performed By: #### L 500.2500, L300.3900, L501.5425, L100.0100, L501.5200 ####[facility] [address] [place], [address] Creatinine [Mass/Vol] 1.04 mg/dL High 0.55-1.02 [facility] Comment on above: Order Comment: 1Y Result Comment: The validity of the calculated GFR GFRAA in patients over70 years has not been determined. Clinical correlation isessential. Performed By: #### L 500.2500, L300.3900, L501.5425, L100.0100, L501.5200 ####[facility] [address] [place], [address] ECRCL 51.32 ml/min Normal [facility] Comment on above: Order Comment: 1Y Performed By: #### L 500.2500, L300.3900, L501.5425, L100.0100, L501.5200 ####[facility] [address] [place], [address] EST GFR - AA 67 mL/min Normal >60 [facility] Comment on above: Order Comment: 1Y Result Comment: Afri can [place] GFR Calc Performed By: #### L 500.2500, L300.3900, L501.5425, L100.0100, L501.5200 ####[facility] [id number] [place], [address] GAP 6 Normal 5-15 [facility] Comment on above: Order Comment: 1Y Performed By: #### L 500.2500, L300.3900, L501.5425, L100.0100, L501.5200 ####[facility] [id number] [place], [address] GFR/1.73 sq M.predicted among non-blacks MDRD (S/P/Bld) [Vol rate/Area] 56 mL/min/{1.73_m2} Low >60 [facility] Comment on above: Order Comment: 1Y Result Comment: Non- GFR Calc Performed By: #### L 500.2500, L300.3900, L501.5425, L100.0100, L501.5200 ####[facility] [id number] [place], [address] Glucose [Mass/Vol] 140 mg/dL High 74-106 [facility] Comment on above: Order Comment: 1Y Result Comment: Fast ing Glucose result greater than or equal to 126 mg/dLsuggests DIABETES MELLITUS per A.D.A. criteria. Performed By: #### L 500.2500, L300.3900, L501.5425, L100.0100, L501.5200 ####[facility] [address] [place], [address] Potassium [Moles/Vol] 4.5 mmol/L Normal 3.5-5.1 [facility] Comment on above: Order Comment: 1Y Performed By: #### L 500.2500, L300.3900, L501.5425, L100.0100, L501.5200 ####[facility] [address] [place], [address] Sodium [Moles/Vol] 136 mmol/L Normal 136-145 [facility] Comment on above: Order Comment: 1Y Performed By: #### L 500.2500, L300.3900, L501.5425, L100.0100, L501.5200 ####[facility] [address] [place], [address] Urea nitrogen [Mass/Vol] 26 mg/dL High 7-18 [facility] Comment on above: Order Comment: 1Y Performed By: #### L 500.2500, L300.3900, L501.5425, L100.0100, L501.5200 ####[facility] [address] [place], [address] Bedside Glucoseon 11-15-2023 FINGERSTICK GLU 124 mg/dL High 74-106 [facility] Comment on above: Result Comment: SONAM GEMENT OF PATIENT CARE PER NURSING PROTOCOL Performed By: #### L 501.080 ####[facility] [address] [place], [address] FINGERSTICK GLU 107 mg/dL High 74-106 [facility] Comment on above: Result Comment: SONAM GEMENT OF PATIENT CARE PER NURSING PROTOCOL Performed By: #### L 501.080 ####[facility] [address] [place], [address] CBC W/Diff, Automatedon 07- Absolute Lymph 1.34 X10 3/uL Normal 0.83-4.51 [facility] Comment on above: Performed By: #### L 500.2500, L300.3900, L501.5425, L100.0100, L501.5200 ####[facility] [address] [place], [address] Absolute Neut 6.7 X10 3/uL Normal 2.0-7.7 [facility] Comment on above: Performed By: #### L 500.2500, L300.3900, L501.5425, L100.0100, L501.5200 ####[facility] [address] [place], [address] Basophils/100 WBC (Bld) 0.2 % Normal 0-1 [facility] Comment on above: Performed By: #### L 500.2500, L300.3900, L501.5425, L100.0100, L501.5200 ####[facility] [address] [place], [address] Eosinophils/100 WBC (Bld) 0.8 % Normal 0-5 [facility] Comment on above: Performed By: #### L 500.2500, L300.3900, L501.5425, L100.0100, L501.5200 ####[facility] [address] [place], [address] Erythrocyte distribution width (RBC) [Ratio] 13.0 % Normal 11.6-14.6 [facility] Comment on above: Performed By: #### L 500.2500, L300.3900, L501.5425, L100.0100, L501.5200 ####[facility] [address] [place], [address] Hematocrit (Bld) [Volume fraction] 36.5 % Low 37-47 [facility] Comment on above: Performed By: #### L 500.2500, L300.3900, L501.5425, L100.0100, L501.5200 ####[facility] [address] [place], [address] Hemoglobin (Bld) [Mass/Vol] 12.0 g/dL Normal 12.0-15.0 [facility] Comment on above: Performed By: #### L 500.2500, L300.3900, L501.5425, L100.0100, L501.5200 ####[facility] [address] [place], [address] IG% 0.400 Normal 0.0-0.9 [facility] Comment on above: Result Comment: IG% - Immature Granulocytes (promyelocytes, myelocytes andmetamyelocytes) > 1% indicates that a LEFT SHIFT is Present. Performed By: #### L 500.2500, L300.3900, L501.5425, L100.0100, L501.5200 ####[facility] [address] [place], [address] Lymphocytes/100 WBC (Bld) 15.0 % Low 19-41 [facility] Comment on above: Performed By: #### L 500.2500, L300.3900, L501.5425, L100.0100, L501.5200 ####[facility] [address] [place], [address] MCH (RBC) [Entitic mass] 32.8 pg High 27.0-32.0 [facility] Comment on above: Performed By: #### L 500.2500, L300.3900, L501.5425, L100.0100, L501.5200 ####[facility] [address] [place], [address] MCHC (RBC) [Mass/Vol] 32.9 g/dL Normal 32-36 [facility] Comment on above: Performed By: #### L 500.2500, L300.3900, L501.5425, L100.0100, L501.5200 ####[facility] [address] [place], [address] MCV (RBC) [Entitic vol] 99.7 fL High 81-99 [facility] Comment on above: Performed By: #### L 500.2500, L300.3900, L501.5425, L100.0100, L501.5200 ####[facility] [address] [place], [address] Monocytes/100 WBC (Bld) 8.2 % Normal 0-10 [facility] Comment on above: Performed By: #### L 500.2500, L300.3900, L501.5425, L100.0100, L501.5200 ####[facility] [address] [place], [address] Neutrophils/100 WBC (Bld) 75.4 % High 47-70 [facility] Comment on above: Performed By: #### L 500.2500, L300.3900, L501.5425, L100.0100, L501.5200 ####[facility] [address] [place], [address] Nucleated RBC (Bld) [#/Vol] 0 10*3/uL Normal 0-5 [facility] Comment on above: Performed By: #### L 500.2500, L300.3900, L501.5425, L100.0100, L501.5200 ####[facility] [address] [place], [address] Platelet mean volume (Bld) [Entitic vol] 11.4 fL Normal 6.2-12.0 [facility] Comment on above: Performed By: #### L 500.2500, L300.3900, L501.5425, L100.0100, L501.5200 ####[facility] [address] [place], [address] Platelets (Bld) [#/Vol] 159 10*3/uL Normal 150-450 [facility] Comment on above: Performed By: #### L 500.2500, L300.3900, L501.5425, L100.0100, L501.5200 ####[facility] [address] [place], [address] RBC (Bld) [#/Vol] 3.66 10*6/uL Low 4.2-5.4 [facility] Comment on above: Performed By: #### L 500.2500, L300.3900, L501.5425, L100.0100, L501.5200 ####[facility] [address] [place], [address] RDW SD 47.8 fl High 35.1-43.9 [facility] Comment on above: Performed By: #### L 500.2500, L300.3900, L501.5425, L100.0100, L501.5200 ####[facility] [address] [place], [address] WBC (Bld) [#/Vol] 8.9 10*3/uL Normal 4.4-11.0 [facility] Comment on above: Performed By: #### L 500.2500, L300.3900, L501.5425, L100.0100, L501.5200 ####[facility] [address] [place], [address] CTA Chest W/WO Contraston CTA Chest W/WO Contrast Normal [facility] D-Dimer Quantitative (DVT/PE )on 11-15-2023 D-DIMER QUANT 0.61 FEU/ug/m Invalid Interpretation Code 0.27-0.49 [facility] Comment on above: Result Comment: D-Di rodger ELEVATED (>0.49): Additional studies and clinicalassessments are indicated to conclude diagnosis of:Deep Vein Thrombosis (DVT) or Pulmonary Embolism (PE)CRITICAL VALUE VERIFIED. CALLED TO MADDIE FONSECA11/15/23 1421 Rhiannon Dominguez.RESULTS READ BACK BY SAME . Performed By: #### L 300.8000 ####[facility] [address] [place], [address] Emergency Department Summary on 11-15-2023 Emergency Department Summary Normal [facility] H AND P Exam - Hospitaliston 11-15-2023 H&P Exam - Hospitalist Normal [facility] L501.4020on 11-15-2023 TROPONIN-I HS 4 pg/mL Normal 3.0-54.0 [facility] Comment on above: Order Comment: Comme nts: SPECIMEN #3'TROP' Serial specimen #1, #2 or #3: 3 Result Comment: Plea se Note: New Test Units and Gender Specific Reference Ranges. For more information see Policy Stat Procedure [place] High Sensitivity Troponin (TNIH) and attachments. Performed By: #### L 501.4020 ####[facility] [address] [place], [address] TROPONIN-I HS 4 pg/mL Normal 3.0-54.0 [facility] Comment on above: Result Comment: Plea se Note: New Test Units and Gender Specific Reference Ranges. For more information see Policy Stat Procedure [place] High Sensitivity Troponin (TNIH) and attachments. Performed By: #### L 501.4020 ####[facility] [address] [place], [address] L501.5425on 11-15-2023 TROPONIN-I HS 4 pg/mL Normal 3.0-54.0 [facility] Comment on above: Order Comment: 1Y Result Comment: Plea se Note: New Test Units and Gender Specific Reference Ranges. For more information see Policy Stat Procedure [place] High Sensitivity Troponin (TNIH) and attachments. Performed By: #### L 500.2500, L300.3900, L501.5425, L100.0100, L501.5200 ####[facility] [address] [place], [address] Magnesiumon 11-15-2023 Magnesium [Mass/Vol] 1.9 mg/dL Normal 1.6-2.6 [facility] Comment on above: Order Comment: 1Y Performed By: #### L 500.2500, L300.3900, L501.5425, L100.0100, L501.5200 ####[facility] [address] [place], [address] Partial Thromboplast Timeon 11-15-2023 aPTT Coag (Bld) [Time] 26.8 s Normal 24.1-36.2 [facility] Comment on above: Order Comment: REDRA W. PREVIOUS SPECIMEN REJECTED DUE TOQNS. 11/15/23 1112 Rhiannon Dominguez. Performed By: #### L 300.3900, L300.4310 ####[facility] [address] [place], [address] Prothrombin Time w/INRon INR Coag (PPP) [Relative time] 1.1 {INR} Normal [facility] Comment on above: Order Comment: REDRA W. PREVIOUS SPECIMEN REJECTED DUE TOQNS. 11/15/23 1112 Rhiannon Dominguez. Performed By: #### L 300.3900, L300.4310 ####[facility] [address] [place], [address] PT Coag (PPP) [Time] 14.1 s Normal 11.7-14.9 [facility] Comment on above: Order Comment: REDRA W. PREVIOUS SPECIMEN REJECTED DUE TOQNS. 11/15/23 1112 Rhiannon Dominguez. Performed By: #### L 300.3900, L300.4310 ####[facility] [address] [place], [address] INR Normal [facility] Comment on above: Result Comment: This specimen has been REJECTED due to Laboratory criteria:Quantity Not Sufficient.Yemi BOO has been notified of need of recollection.11/15/23 1111 Rhiannon Dominguez Performed By: #### L 500.2500, L300.3900, L501.5425, L100.0100, L501.5200 ####[facility] [address] [place], [address] PROTIME Normal 11.7-14.9 [facility] Comment on above: Result Comment: This specimen has been REJECTED due to Laboratory criteria:Quantity Not Sufficient.Yemi BOO has been notified of need of recollection.11/15/23 1111 Rhiannon Dominguez Performed By: #### L 500.2500, L300.3902, L501.5405, L100.0100, L501.5200 ####[facility] [address] [place], [address] Absolute lymphocyte countOrd ered By: Pepe Ruiz on 09-07-2023 Lymphocytes Auto (Unsp spec) [#/Vol] 1.27 10*3/uL 0.83-4.51 [facility] Automated lymphocyte count a s percentage of total leukocytesOrdered By: Pepe Ruiz on 09-07-2023 Lymphocytes/100 WBC Auto (Unsp spec) 31.9 % 19-41 [facility] Basophil percentageOrdered B y: Pepe Ruiz on 09-07-2023 Basophils/100 WBC (Bld) 0.3 % 0-1 [facility] Eosinophils/100 WBC (Bld) 6.5 % 0-5 [facility] Hemoglobin (Bld) [Mass/Vol] 10.8 g/dL 12.0-15.0 [facility] Monocytes/100 WBC (Bld) 9.3 % 0-10 [facility] Neutrophils (Bld) [#/Vol] 2.0 10*3/uL 2.0-7.7 [facility] Neutrophils/100 WBC (Bld) 51.2 % 47-70 [facility] WBC (Bld) [#/Vol] 4.0 10*3/uL 4.4-11.0 [facility] Ammonia (P) [Moles/Vol] 67.0 umol/L 11-32 [facility] Basophil percentage 17.0 IU/mL <15 [facility] Bilirubin [Mass/Vol] 0.30 mg/dL 0.20-1.00 [facility] Comment on above: For patients on eltr ombopag therapy, use of Dimension [place] TBIL is not recommended. Chloride [Moles/Vol] 111 mmol/L 98-107 [facility] Glucose [Mass/Vol] 139 mg/dL 74-106 [facility] Comment on above: Fasting Glucose resu lt greater than or equal to 126 mg/dL suggests DIABETES MELLITUS per A.D.A. criteria. Potassium [Moles/Vol] 4.0 mmol/L 3.5-5.1 [facility] Protein [Mass/Vol] 6.6 g/dL 6.4-8.2 [facility] Sodium [Moles/Vol] 141 mmol/L 136-145 [facility] Determination of erythrocyte mean corpuscular volume (MCV)Ordered By: Pepe Ruiz on 09-07-2023 MCV (RBC) [Entitic vol] 100.0 fL 81-99 [facility] Erythrocyte distribution wid th ratioOrdered By: Pepeamol Ruiz on 09-07-2023 Erythrocyte distribution width (RBC) [Ratio] 14.2 % 11.6-14.6 [facility] Erythrocyte distribution wid th standard deviationOrdered By: Pepe Ruiz on 09-07-2023 Erythrocyte distribution width (RBC) [Entitic vol] 52.2 fL 35.1-43.9 [facility] Erythrocyte sedimentation ra teOrdered By: Pepe Ruiz on 09-07-2023 ESR (Bld) [Velocity] 2 mm/h 0-30 [facility] Hematocrit Auto (Bld) [Volum e fraction]Ordered By: Pepe Ruiz on 09-07-2023 Hematocrit (Bld) [Volume fraction] 33.0 % 37-47 [facility] Immature granulocytes/100 WB C Auto (Bld)Ordered By: Pepeamol Ruiz on 09-07-2023 Immature granulocytes/100 WBC (Bld) 0.800 % 0.0-0.9 [facility] Comment on above: IG% - Immature Granu locytes (promyelocytes, myelocytes and metamyelocytes) > 1% indicates that a LEFT SHIFT is Present. Laboratory - Chemistry and C hemistry - challengeOrdered By: Pepe Ruiz on 09-07-2023 Albumin/Globulin [Mass ratio] 0.7 {ratio} 0.9-2.4 [facility] ALP [Catalytic activity/Vol] 93 U/L 45-117 [facility] ALT [Catalytic activity/Vol] 21 U/L 13-56 [facility] CO2 [Moles/Vol] 25.0 mmol/L 21.0-32.0 [facility] Cobalamin (Vitamin B12) [Mass/Vol] 366 pg/mL 211-911 [facility] Globulin (S) [Mass/Vol] 3.8 g/dL 2.2-4.2 [facility] Urea nitrogen/Creatinine [Mass ratio] 21.4 mg/mg 10-20 [facility] Laboratory - Hematology and Cell countsOrdered By: Pepe Ruiz on 09-07-2023 MCH (RBC) [Entitic mass] 32.7 pg 27.0-32.0 [facility] MCHC (RBC) [Mass/Vol] 32.7 g/dL 32-36 [facility] Nucleated RBC/100 WBC (Bld) [Ratio] 0 % 0-5 [facility] Platelet mean volume (Bld) [Entitic vol] 12.0 fL 6.2-12.0 [facility] Platelets (Bld) [#/Vol] 186 10*3/uL 150-450 [facility] No Panel InformationOrdered By: Pepe Ruiz on 09-07-2023 Anti-Nuclear Antibody Screen Negative Negative [facility] Comment on above: Performed at: [facility] [address] Director: Lobo Das PhD, Phone: [phone] C-Reactive Protein Extended Range < 2.90 mg/L 0.0-3.0 [facility] Comment on above: C-Reactive Protein ( CRP) provides useful information for thediagnosis, therapy and monitoring of inflammatory processesand associated diseases. For the evaluation of Relative Riskfor Cardiovascular Disease, a High Sensitivity CRP (HSCRP)should be ordered. Estimated GFR (MDRD) Amer 76 mL/min >60 [facility] Comment on above: GFR Calc Estimated GFR (MDRD) Non-Af Amer 63 mL/min >60 [facility] Comment on above: Non- GFR Calc Folate 9.10 ng/mL 3.1-55.4 [facility] Hepatitis B Surface Antigen Non-Reactive Nonreactive [facility] Hepatitis C Antibody Non-Reactive Nonreactive [facility] Comment on above: Non Reactive: < 0.8 Equivocal: >/= 0.8 to < 1.0 Reactive: >/= 1.0The CDC requires that a reactive/equivocal HCV antibody result be sent out for confirmation. HCV Quant by PCR testing. Valproic Acid (Depakene) Level 103 ug/mL 50-100 [facility] RBC Auto (Bld) [#/Vol]Ordere d By: Pepe Ruiz on 09-07-2023 RBC (Bld) [#/Vol] 3.30 10*6/uL 4.2-5.4 [facility] Serum cyclic citrullinated p eptide IgG antibody assay (units/volume)Ordered By: Pepe Ruiz on 09-07-2023 Cyclic citrullinated peptide IgG Qn 7 units 0-19 [facility] Comment on above: Negative <20 Weak po sitive 20 - 39 Moderate positive 40 - 59 Strong positive >59Performed at: [employer] [id number] Director: Adamaris Shi MD, Phone: [phone] at: [employer] [address] [id number] Director: Lobo Das PhD, Phone: [phone] Serum hepatitis B virus surf shelly antibody IgG detectionOrdered By: Pepe Ruiz on 09-07-2023 HBV surface IgG Ql (S) Non-Reactive [facility] Comment on above: Non Reactive: Incons istent with immunity less than <10 mIU/mL Reactive: Consistent with immunity greater than or equal to 10 mIU/mL Serum or plasma calcium loretta urement (mass/volume)Ordered By: Pepe Ruiz on 09-07-2023 Calcium [Mass/Vol] 8.4 mg/dL 8.5-10.1 [facility] Serum or plasma creatinine m easurement (mass/volume)Ordered By: Pepe Ruiz on 09-07-2023 Creatinine [Mass/Vol] 0.94 mg/dL 0.55-1.02 [facility] Comment on above: The validity of the calculated GFR & GFRAA in patients over 70 years has not been determined. Clinical correlation is essential. Serum or plasma thiamine kirill surement (mass/volume)Ordered By: Pepe Ruiz on 09-07-2023 Thiamine [Mass/Vol] 109.8 nmol/L 66.5-200.0 [facility] Serum or plasma thyroid stim ulating hormone (TSH) measurement (units/volume)Ordered By: Pepe Ruiz on 09-07-2023 TSH Qn 2.91 uIU/mL 0.358-3.74 [facility] Serum or plasma urea nitroge n measurement (mass/volume)Ordered By: Pepe Ruiz on 09-07-2023 Urea nitrogen [Mass/Vol] 20 mg/dL 7-18 [facility] Thin prep Papanicolaou smear with manual screeningOrdered By: Pepeamol Ruiz on 09-07-2023 Thin prep Papanicolaou smear with manual screening 2.8 g/dL 3.2-5.0 [facility] Thin prep Papanicolaou smear with manual screening 21 U/L 15-37 [facility] Thin prep Papanicolaou smear with manual screening 5 5-15 [facility] Basophil percentageOrdered B y: Vadim Mckinney on 08-14-2023 Basophil percentage < 1.0 mg/dL 0.55-1.02 [facility] No Panel InformationOrdered By: Vadim Mckinney on 08-14-2023 Bedside Estimated GFR (eGFR) > 60.0000 mL/min >60 [facility] Absolute lymphocyte countOrd ered By: Mayda Garcia on 06-17-2023 Lymphocytes Auto (Unsp spec) [#/Vol] 0.86 10*3/uL 0.83-4.51 [facility] Automated lymphocyte count a s percentage of total leukocytesOrdered By: Mayda Garcia on 06-17-2023 Lymphocytes/100 WBC Auto (Unsp spec) 27.2 % 19-41 [facility] Basophil percentageOrdered B y: Mayda Garcia on 06-17-2023 Basophils/100 WBC (Bld) 0.6 % 0-1 [facility] Chloride [Moles/Vol] 112 mmol/L 98-107 [facility] Eosinophils/100 WBC (Bld) 2.8 % 0-5 [facility] Glucose [Mass/Vol] 138 mg/dL 74-106 [facility] Comment on above: Fasting Glucose resu lt greater than or equal to 126 mg/dL suggests DIABETES MELLITUS per A.D.A. criteria. Hemoglobin (Bld) [Mass/Vol] 12.2 g/dL 12.0-15.0 [facility] Monocytes/100 WBC (Bld) 6.0 % 0-10 [facility] Neutrophils (Bld) [#/Vol] 2.0 10*3/uL 2.0-7.7 [facility] Neutrophils/100 WBC (Bld) 63.1 % 47-70 [facility] Potassium [Moles/Vol] 4.1 mmol/L 3.5-5.1 [facility] Sodium [Moles/Vol] 142 mmol/L 136-145 [facility] WBC (Bld) [#/Vol] 3.2 10*3/uL 4.4-11.0 [facility] Determination of erythrocyte mean corpuscular volume (MCV)Ordered By: Mayda Garcia on 06-17-2023 MCV (RBC) [Entitic vol] 99.0 fL 81-99 [facility] Erythrocyte distribution wid th ratioOrdered By: [facility] on 06-17-2023 Erythrocyte distribution width (RBC) [Ratio] 14.3 % 11.6-14.6 [facility] Erythrocyte distribution wid th standard deviationOrdered By: [facility]consuelo Ibanezchandana on 06-17-2023 Erythrocyte distribution width (RBC) [Entitic vol] 52.5 fL 35.1-43.9 [facility] Hematocrit Auto (Bld) [Volum e fraction]Ordered By: Norisaddisonconsuelo Garcia on 06-17-2023 Hematocrit (Bld) [Volume fraction] 38.8 % 37-47 [facility] Immature granulocytes/100 WB C Auto (Bld)Ordered By: michelleaddisonconsuelo Garcia on 06-17-2023 Immature granulocytes/100 WBC (Bld) 0.300 % 0.0-0.9 [facility] Comment on above: IG% - Immature Granu locytes (promyelocytes, myelocytes and metamyelocytes) > 1% indicates that a LEFT SHIFT is Present. Laboratory - Chemistry and C hemistry - challengeOrdered By: Mayda Garcia on 06-17-2023 CO2 [Moles/Vol] 26.0 mmol/L 21.0-32.0 [facility] Urea nitrogen/Creatinine [Mass ratio] 27.6 mg/mg 10-20 [facility] Laboratory - Hematology and Cell countsOrdered By: Mayda Garcia on 06-17-2023 MCH (RBC) [Entitic mass] 31.1 pg 27.0-32.0 [facility] MCHC (RBC) [Mass/Vol] 31.4 g/dL 32-36 [facility] Nucleated RBC/100 WBC (Bld) [Ratio] 0 % 0-5 [facility] Platelet mean volume (Bld) [Entitic vol] 11.2 fL 6.2-12.0 [facility] Platelets (Bld) [#/Vol] 184 10*3/uL 150-450 [facility] No Panel InformationOrdered By: Mayda Garcia on 06-17-2023 Estimated GFR (MDRD) Amer 87 mL/min >60 [facility] Comment on above: GFR Calc Estimated GFR (MDRD) Non-Af Amer 72 mL/min >60 [facility] Comment on above: Non- GFR Calc RBC Auto (Bld) [#/Vol]Ordere d By: Mayda Garcia on 06-17-2023 RBC (Bld) [#/Vol] 3.92 10*6/uL 4.2-5.4 [facility] Serum or plasma calcium loretta urement (mass/volume)Ordered By: Mayda Garcia on 06-17-2023 Calcium [Mass/Vol] 8.5 mg/dL 8.5-10.1 [facility] Serum or plasma creatinine m easurement (mass/volume)Ordered By: Mayda Garcia on 06-17-2023 Creatinine [Mass/Vol] 0.83 mg/dL 0.55-1.02 [facility] Comment on above: The validity of the calculated GFR & GFRAA in patients over 70 years has not been determined. Clinical correlation is essential. Serum or plasma urea nitroge n measurement (mass/volume)Ordered By: Mayda Garcia on 06-17-2023 Urea nitrogen [Mass/Vol] 23 mg/dL 7-18 [facility] Thin prep Papanicolaou smear with manual screeningOrdered By: Mayda Garcia on 06-17-2023 Thin prep Papanicolaou smear with manual screening 4 5-15 [facility] Whole blood hemoglobin A1c/t otal hemoglobin ratio (mass fraction)Ordered By: Mayda Garcia on 06-17-2023 HbA1c (Bld) [Mass fraction] 6.3 % 3.8-5.6 [facility] Comment on above: Normal < 5.7 % Predi abetic 5.7 - 6.4 % Diabetic >or= 6.5 % Please note range changes. Absolute lymphocyte countOrd ered By: Carlos Bravo on 02-18-2023 Lymphocytes Auto (Unsp spec) [#/Vol] 1.35 10*3/uL 0.83-4.51 [facility] Basophil percentageOrdered B y: Pepe Ruiz on 02-18-2023 Ammonia (P) [Moles/Vol] 42.0 umol/L - [facility] Basophil percentage 42.0 umol/L - [facility] Basophil percentageOrdered B y: Carlos Bravo on 02-18-2023 Basophil percentage 96 mg/dL 74-106 [facility] Basophil percentage 7.4 g/dL 6.4-8.2 [facility] Basophil percentage 0.30 mg/dL 0.20-1.00 [facility] Basophil percentage 141 mmol/L 136-145 [facility] Basophil percentage 3.6 mmol/L 3.5-5.1 [facility] Basophil percentage 108 mmol/L 98-107 [facility] Basophils (Bld) [#/Vol] 5.6 10*3/uL 4.4-11.0 [facility] Basophils (Bld) [#/Vol] 3.4 10*3/uL 2.0-7.7 [facility] Basophils/100 WBC (Bld) 60.8 % 47-70 [facility] Basophils/100 WBC (Bld) 6.3 % 0-5 [facility] Basophils/100 WBC (Bld) 0.4 % 0-1 [facility] Bilirubin [Mass/Vol] 0.30 mg/dL 0.20-1.00 [facility] Comment on above: For patients on eltr ombopag therapy, use of Dimension [place] TBIL is not recommended. Chloride [Moles/Vol] 108 mmol/L 98-107 [facility] Eosinophils/100 WBC (Bld) 6.3 % 0-5 [facility] Glucose [Mass/Vol] 96 mg/dL 74-106 [facility] Neutrophils (Bld) [#/Vol] 3.4 10*3/uL 2.0-7.7 [facility] Neutrophils/100 WBC (Bld) 60.8 % 47-70 [facility] Potassium [Moles/Vol] 3.6 mmol/L 3.5-5.1 [facility] Protein [Mass/Vol] 7.4 g/dL 6.4-8.2 [facility] Sodium [Moles/Vol] 141 mmol/L 136-145 [facility] WBC (Bld) [#/Vol] 5.6 10*3/uL 4.4-11.0 [facility] Blood erythrocytes count (nu mber/volume)Ordered By: Carlos Bravo on 02-18-2023 RBC (Bld) [#/Vol] 3.67 10*6/uL 4.2-5.4 [facility] Blood hemoglobin measurement (mass/volume)Ordered By: Carlos Bravo on 02-18-2023 Hemoglobin (Bld) [Mass/Vol] 11.2 g/dL 12.0-15.0 [facility] Blood lymphocytes/100 leukoc ytesOrdered By: Carlos Bravo on 02-18-2023 Lymphocytes/100 WBC (Bld) 24.1 % 19-41 [facility] Blood monocytes/100 leukocyt esOrdered By: Carlos Bravo on 02-18-2023 Monocytes/100 WBC (Bld) 8.2 % 0-10 [facility] Blood platelet mean volumeOr dered By: Carlos Bravo on 02-18-2023 Platelet mean volume (Bld) [Entitic vol] 10.9 fL 6.2-12.0 [facility] Determination of erythrocyte mean corpuscular volume (MCV)Ordered By: Carlos Bravo on 02-18-2023 MCV (RBC) [Entitic vol] 96.7 fL 81-99 [facility] Hematocrit Auto (Bld) [Volum e fraction]Ordered By: Carlos Bravo on 02-18-2023 Hematocrit (Bld) [Volume fraction] 35.5 % 37-47 [facility] Laboratory - Chemistry and C hemistry - challengeOrdered By: Carlos Bravo on 02-18-2023 ALP [Catalytic activity/Vol] 79 U/L 45-117 [facility] ALT [Catalytic activity/Vol] 13 U/L 13-56 [facility] CO2 [Moles/Vol] 24.0 mmol/L 21.0-32.0 [facility] Free T4 [Mass/Vol] 1.01 ng/dL 0.76-1.46 [facility] Globulin (S) [Mass/Vol] 4.8 g/dL 2.2-4.2 [facility] Natriuretic peptide B (Bld) [Mass/Vol] 26.8 pg/mL 0-100 [facility] Urea nitrogen/Creatinine [Mass ratio] 17.6 mg/mg 10-20 [facility] Laboratory - Hematology and Cell countsOrdered By: Carlos Bravo on 02-18-2023 Erythrocyte distribution width (RBC) [Entitic vol] 52.1 fL 35.1-43.9 [facility] Erythrocyte distribution width (RBC) [Ratio] 14.6 % 11.6-14.6 [facility] Immature granulocytes/100 WBC (Bld) 0.200 % 0.0-0.9 [facility] Comment on above: IG% - Immature Granu locytes (promyelocytes, myelocytes and metamyelocytes) > 1% indicates that a LEFT SHIFT is Present. MCH (RBC) [Entitic mass] 30.5 pg 27.0-32.0 [facility] Nucleated RBC/100 WBC (Bld) [Ratio] 0 % 0-5 [facility] MCHC Auto (RBC) [Mass/Vol]Or dered By: Carlos Bravo on 02-18-2023 MCHC (RBC) [Mass/Vol] 31.5 g/dL 32-36 [facility] No Panel InformationOrdered By: Carlos Bravo on 02-18-2023 Estimated GFR (MDRD) Amer 92 mL/min >60 [facility] Comment on above: GFR Calc Estimated GFR (MDRD) Non-Af Amer 76 mL/min >60 [facility] Comment on above: Non- GFR Calc Thyroid Stimulating Hormone (TSH) 3.45 uIU/mL 0.358-3.74 [facility] 30.5 pg 27.0-32.0 [facility] 14.6 % 11.6-14.6 [facility] 52.1 fl 35.1-43.9 [facility] 0.200 % 0.0-0.9 [facility] 0 % 0-5 [facility] 76 mL/min >60 [facility] 92 mL/min >60 [facility] 17.6 RATIO 10-20 [facility] 4.8 g/dL 2.2-4.2 [facility] 79 U/L 45-117 [facility] 13 U/L 13-56 [facility] 24.0 mmol/L 21.0-32.0 [facility] 3.45 uIU/mL 0.358-3.74 [facility] 26.8 pg/mL 0-100 [facility] 1.01 ng/dL 0.76-1.46 [facility] No Panel InformationOrdered By: Pepe Ruiz on 02-18-2023 Valproic Acid (Depakene) Level 103 ug/mL 50-100 [facility] Whole Blood Vitamin B1 Level 106.4 nmol/L 66.5-200.0 [facility] Comment on above: Performed at: [address] [id number] Director: Adamaris Shi MD, Phone: [phone] 103 ug/mL 50-100 [facility] 106.4 nmol/L 66.5-200.0 [facility] Platelets bldOrdered By: Aj Bravo on 02-18-2023 Platelets (Bld) [#/Vol] 251 10*3/uL 150-450 [facility] Serum or plasma albumin loretta urement (mass/volume)Ordered By: Carlos Bravo on 02-18-2023 Albumin [Mass/Vol] 2.6 g/dL 3.2-5.0 [facility] Serum or plasma albumin/glob ulin mass ratioOrdered By: Carlos Bravo on 02-18-2023 Albumin/Globulin [Mass ratio] 0.5 {ratio} 0.9-2.4 [facility] Serum or plasma calcium loretta urement (mass/volume)Ordered By: Carlos Bravo on 02-18-2023 Calcium [Mass/Vol] 8.7 mg/dL 8.5-10.1 [facility] Serum or plasma creatinine m easurement (mass/volume)Ordered By: Carlos Bravo on 02-18-2023 Creatinine [Mass/Vol] 0.80 mg/dL 0.55-1.02 [facility] Comment on above: The validity of the calculated GFR & GFRAA in patients over 70 years has not been determined. Clinical correlation is essential. Serum or plasma urea nitroge n measurement (mass/volume)Ordered By: Carlos Bravo on 02-18-2023 Urea nitrogen [Mass/Vol] 14 mg/dL 7-18 [facility] Thin prep Papanicolaou smear with manual screeningOrdered By: Carlos Bravo on 02-18-2023 Thin prep Papanicolaou smear with manual screening 11 U/L 15-37 [facility] Thin prep Papanicolaou smear with manual screening 9 5-15 [facility] Iron measurement (mass/mass) Ordered By: Mayda Garcia on 02-04-2023 Iron (Unsp spec) [Mass/Mass] 41 ug/dL 50-170 [facility] Laboratory - Chemistry and C hemistry - challengeOrdered By: Mayda Garcia on 02-04-2023 Cobalamin (Vitamin B12) [Mass/Vol] 262 pg/mL 211-911 [facility] No Panel InformationOrdered By: Mayda Garcia on 02-04-2023 Total Iron Binding Capacity 217 ug/dL 250-450 [facility] 262 pg/mL 211-911 [facility] 217 ug/dL 250-450 [facility] Serum or plasma ferritin kirill surement (mass/volume)Ordered By: Mayda Garcia on 02-04-2023 Ferritin [Mass/Vol] 364 ng/mL 8-252 [facility] Serum or plasma folate measu rement (mass/volume)Ordered By: Mayda Garcia on 02-04-2023 Folate [Mass/Vol] 17.40 ng/mL 3.1-55.4 [facility] Absolute lymphocyte countOrd ered By: Robbin Carlos on 01-26-2023 Lymphocytes Auto (Unsp spec) [#/Vol] 1.96 10*3/uL 0.83-4.51 [facility] Basophil percentageOrdered B y: Robbin Carlos on 01-26-2023 Basophil percentage 85 mg/dL 74-106 [facility] Basophil percentage 140 mmol/L 136-145 [facility] Basophil percentage 3.9 mmol/L 3.5-5.1 [facility] Basophil percentage 108 mmol/L 98-107 [facility] Basophils (Bld) [#/Vol] 4.8 10*3/uL 4.4-11.0 [facility] Basophils (Bld) [#/Vol] 2.2 10*3/uL 2.0-7.7 [facility] Basophils/100 WBC (Bld) 0.6 % 0-1 [facility] Basophils/100 WBC (Bld) 46.3 % 47-70 [facility] Basophils/100 WBC (Bld) 3.3 % 0-5 [facility] Chloride [Moles/Vol] 108 mmol/L 98-107 [facility] Eosinophils/100 WBC (Bld) 3.3 % 0-5 [facility] Glucose [Mass/Vol] 85 mg/dL 74-106 [facility] Neutrophils (Bld) [#/Vol] 2.2 10*3/uL 2.0-7.7 [facility] Neutrophils/100 WBC (Bld) 46.3 % 47-70 [facility] Potassium [Moles/Vol] 3.9 mmol/L 3.5-5.1 [facility] Sodium [Moles/Vol] 140 mmol/L 136-145 [facility] WBC (Bld) [#/Vol] 4.8 10*3/uL 4.4-11.0 [facility] Blood erythrocytes count (nu mber/volume)Ordered By: Robbin Carlso on 01-26-2023 RBC (Bld) [#/Vol] 3.21 10*6/uL 4.2-5.4 [facility] Blood hemoglobin measurement (mass/volume)Ordered By: Robbin Carlos on 01-26-2023 Hemoglobin (Bld) [Mass/Vol] 9.9 g/dL 12.0-15.0 [facility] Blood lymphocytes/100 leukoc ytesOrdered By: Robbin Carlos on 01-26-2023 Lymphocytes/100 WBC (Bld) 41.0 % 19-41 [facility] Blood monocytes/100 leukocyt esOrdered By: Robbin Carlos on 01-26-2023 Monocytes/100 WBC (Bld) 8.4 % 0-10 [facility] Blood platelet mean volumeOr dered By: Robbin Carlos on 01-26-2023 Platelet mean volume (Bld) [Entitic vol] 11.4 fL 6.2-12.0 [facility] Determination of erythrocyte mean corpuscular volume (MCV)Ordered By: Robbin Carlos on 01-26-2023 MCV (RBC) [Entitic vol] 96.3 fL 81-99 [facility] Hematocrit Auto (Bld) [Volum e fraction]Ordered By: Robbin Carlos on 01-26-2023 Hematocrit (Bld) [Volume fraction] 30.9 % 37-47 [facility] Laboratory - Chemistry and C hemistry - challengeOrdered By: Robbin Carlos on 01-26-2023 CO2 [Moles/Vol] 27.0 mmol/L 21.0-32.0 [facility] Urea nitrogen/Creatinine [Mass ratio] 17.4 mg/mg 10-20 [facility] Laboratory - Hematology and Cell countsOrdered By: Robbin Carlos on 01-26-2023 Erythrocyte distribution width (RBC) [Entitic vol] 51.8 fL 35.1-43.9 [facility] Erythrocyte distribution width (RBC) [Ratio] 14.6 % 11.6-14.6 [facility] Immature granulocytes/100 WBC (Bld) 0.400 % 0.0-0.9 [facility] Comment on above: IG% - Immature Granu locytes (promyelocytes, myelocytes and metamyelocytes) > 1% indicates that a LEFT SHIFT is Present. MCH (RBC) [Entitic mass] 30.8 pg 27.0-32.0 [facility] Nucleated RBC/100 WBC (Bld) [Ratio] 0 % 0-5 [facility] MCHC Auto (RBC) [Mass/Vol]Or dered By: Robbin Carlos on 01-26-2023 MCHC (RBC) [Mass/Vol] 32.0 g/dL 32-36 [facility] No Panel InformationOrdered By: Robbin Carlos on 01-26-2023 Estimated Creatinine Clearance Calc 41.40 ml/min [facility] Estimated GFR (MDRD) Amer 99 mL/min >60 [facility] Comment on above: GFR Calc Estimated GFR (MDRD) Non-Af Amer 82 mL/min >60 [facility] Comment on above: Non- GFR Calc 30.8 pg 27.0-32.0 [facility] 14.6 % 11.6-14.6 [facility] 51.8 fl 35.1-43.9 [facility] 0.400 % 0.0-0.9 [facility] 0 % 0-5 [facility] 82 mL/min >60 [facility] 99 mL/min >60 [facility] 41.40 ml/min [facility] 17.4 RATIO 10-20 [facility] 27.0 mmol/L 21.0-32.0 [facility] Platelets bldOrdered By: Robbin Carlos on 01-26-2023 Platelets (Bld) [#/Vol] 149 10*3/uL 150-450 [facility] Serum or plasma calcium loretta urement (mass/volume)Ordered By: Robbin Carlos on 01-26-2023 Calcium [Mass/Vol] 8.5 mg/dL 8.5-10.1 [facility] Serum or plasma creatinine m easurement (mass/volume)Ordered By: Robbin Carlos on 01-26-2023 Creatinine [Mass/Vol] 0.75 mg/dL 0.55-1.02 [facility] Comment on above: The validity of the calculated GFR & GFRAA in patients over 70 years has not been determined. Clinical correlation is essential. Serum or plasma urea nitroge n measurement (mass/volume)Ordered By: Robbin Carlos on 01-26-2023 Urea nitrogen [Mass/Vol] 13 mg/dL 7-18 [facility] Thin prep Papanicolaou smear with manual screeningOrdered By: Robbin Carlos 01-26-2023 Thin prep Papanicolaou smear with manual screening 5 5-15 [facility] Basophil percentageOrdered B y: Robbin Carlos on 01-22-2023 Basophil percentage 6.4 g/dL 6.4-8.2 [facility] Basophil percentage 0.20 mg/dL 0.20-1.00 [facility] Bilirubin [Mass/Vol] 0.20 mg/dL 0.20-1.00 [facility] Comment on above: For patients on eltr ombopag therapy, use of Dimension [place] TBIL is not recommended. Protein [Mass/Vol] 6.4 g/dL 6.4-8.2 [facility] Laboratory - Chemistry and C hemistry - challengeOrdered By: Robbin Carlos on 01-22-2023 ALP [Catalytic activity/Vol] 102 U/L [facility] ALT [Catalytic activity/Vol] 28 U/L [facility] Globulin (S) [Mass/Vol] 3.9 g/dL 2.2-4.2 [facility] No Panel InformationOrdered By: Robbin Carlos on 01-22-2023 3.9 g/dL 2.2-4.2 [facility] 102 U/L [facility] 28 U/L [facility] Serum or plasma albumin loretta urement (mass/volume)Ordered By: Robbin Carlos on 01-22-2023 Albumin [Mass/Vol] 2.5 g/dL 3.2-5.0 [facility] Serum or plasma albumin/glob ulin mass ratioOrdered By: Robbin Carlos on 01-22-2023 Albumin/Globulin [Mass ratio] 0.6 {ratio} 0.9-2.4 [facility] Thin prep Papanicolaou smear with manual screeningOrdered By: Robbin Carlos on 01-22-2023 Thin prep Papanicolaou smear with manual screening 26 U/L [facility] Whole blood hemoglobin A1c/t otal hemoglobin ratio (mass fraction)Ordered By: Robbin Carlos on 01-22-2023 HbA1c (Bld) [Mass fraction] 6.4 % 3.8-5.6 [facility] Comment on above: Normal < 5.7 % Predi abetic 5.7 - 6.4 % Diabetic >or= 6.5 % Please note range changes. SARS-CoV-2 (COVID-19) Ag IA. rapid Ql (Resp)Ordered By: Robbin Carlos on 01-21-2023 COVID-19 virus antigen assay SARS-CoV-2 (COVID 19) [facility] SARS-CoV-2 Antigen (Rapid) SARS-CoV-2 (COVID 19) [facility] COVID-19 virus antigen assay SARS-CoV-2 (COVID 19) [facility] Glucose Glucometer (BldC) [M ass/Vol]Ordered By: Robbin Carlos on 01-18-2023 Glucose [Mass/Vol] 72 mg/dL 74-106 [facility] Comment on above: MANAGEMENT OF PATIEN T CARE PER NURSING PROTOCOL POCT glucose meteron 023 Glucose [Mass/Vol] 98 mg/dL 70 - 100 mg/dL [facility] Interpretation and review of laboratory results Normal [facility] Performed by: [facility], [address] [place] [address] CLIA ID: [id number] [facility] [employer] [facility] [employer] POCT glucose meteron 023 Glucose [Mass/Vol] 98 mg/dL 70 - 100 mg/dL [facility] Interpretation and review of laboratory results Normal [facility] Performed by: [facility], [address] [place] [address] CLIA ID: [id number] [facility] [employer] [facility] POCT glucose meteron 023 Glucose [Mass/Vol] 157 mg/dL High 70 - 100 mg/dL [facility] Interpretation and review of laboratory results Abnormal [facility] Performed by: [facility], [address] [place] [address] CLIA ID: [id number] [facility] [employer] [facility] Glucose [Mass/Vol] 113 mg/dL High 70 - 100 mg/dL [facility] [employer] Interpretation and review of laboratory results Abnormal [facility] Performed by: [facility], [address] [place] [address] CLIA ID: [id number] [facility] [employer] [facility] [employer] XR Chest Single viewon 01-08 Patient Name: LACY SAVAGE : 1950 Exam Date/Time: 01/08/2023 05:19 Procedure: XR CHEST [...] Electronically Signed Date/Time: 01/08/2023 7:43 AM EDT [facility] RADIOLOGY SYSTEM Gómez Calvert MD - 01/08/2023 Patient Name: LACY ALVARADO : 1950 Exam Date/Time: 01/08/2023 05:19 Procedure: XR CHEST [...] Electronically Signed Date/Time: 01/08/2023 7:43 AM EDT [facility] Radiology Study observation (narrative) [facility] [employer] Basic metabolic 1998 panelon 01-07-2023 Anion gap [Moles/Vol] 9 mmol/L 3 - 13 mmol/L [facility] [employer] Calcium [Mass/Vol] 8.5 mg/dL 8.4 - 10. 4 mg/dL [facility] [employer] Chloride [Moles/Vol] 101 mmol/L 98 - 10 7 mmol/L [facility] CO2 [Moles/Vol] 27 mmol/L 22 - 30 mmol/L [facility] Creatinine [Mass/Vol] 0.91 mg/dL 0.52 - 1.04 mg/dL [facility] GFR/1.73 sq M.predicted MDRD (S/P/Bld) [Vol rate/Area] 68.0 mL/min/{1.73_m2} - PINF [facility] Comment on above: Calculation based on the Chronic Kidney Disease Epidemiology Collaboration (CKD-EPI) equation refit without adjustment for race Glucose [Mass/Vol] 83 mg/dL 70 - 100 mg/dL [facility] Potassium [Moles/Vol] 4.2 mmol/L 3.5 - 5.1 mmol/L [facility] Sodium [Moles/Vol] 137 mmol/L 135 - 145 mmol/L [facility] Urea nitrogen [Mass/Vol] 30 mg/dL High 7 - 17 mg/dL [facility] CBC panel Auto (Bld)Ordered By: Ekaterina Fountain on 01-07-2023 Erythrocyte distribution width (RBC) [Ratio] 15.8 % High 11.5 - 14.5 % [facility] Hematocrit (Bld) [Volume fraction] 30.0 % Low 35.0 - 47.0 % [facility] Hemoglobin (Bld) [Mass/Vol] 10.3 g/dL Low 11.7 - 16.0 g/dL [facility] Interpretation and review of laboratory results Abnormal [facility] MCH (RBC) [Entitic mass] 32.0 pg 26.0 - 34.0 pg [facility] MCHC (RBC) [Mass/Vol] 34.2 % 32.0 - 36.0 % [facility] MCV (RBC) [Entitic vol] 93.7 fL 80.0 - 98.0 fL [facility] Platelet mean volume (Bld) [Entitic vol] 9.1 fL 7.4 - 12.4 fL [facility] Platelets (Bld) [#/Vol] 162 10*3/uL 140 - 440 10*3/uL [facility] RBC (Bld) [#/Vol] 3.21 10*6/uL Low 3.8 - 5.20 10*6/uL [facility] WBC (Bld) [#/Vol] 5.4 10*3/uL 3.6 - 10.7 10*3/uL [facility] Magnesiumon 01-07-2023 Magnesium [Mass/Vol] 2.4 mg/dL High 1.6 - 2 .3 mg/dL [facility] No Panel Informationon 01-07 Interpretation and review of laboratory results Abnormal [employer] POCT glucose meteron 023 Glucose [Mass/Vol] 102 mg/dL High 70 - 100 mg/dL [facility] [employer] Interpretation and review of laboratory results Abnormal [employer] Performed by: [facility] [employer] [facility], [address] [place] [address] CLIA ID: [id number] [facility] Glucose [Mass/Vol] 118 mg/dL High 70 - 100 mg/dL [facility] [employer] Interpretation and review of laboratory results Abnormal [facility] Performed by: [facility], [address] [place] [address] CLIA ID: [id number] [facility] Glucose [Mass/Vol] 124 mg/dL High 70 - 100 mg/dL [facility] [employer] Interpretation and review of laboratory results Abnormal [facility] Performed by: [employer] [facility], [address] [place] [address] CLIA ID: [id number] [facility] [employer] [facility] Noteon 01-07-2023 Progress Note Department of Object Oriented Developer al Medicine Division of Endocrinology, Diabetes, & Metabolism Endocrinology Note Patient Name: Lacy Alvarado : 1950 AGE: 72 y.o. Room[facility]: [facility] Admission Date: 01/01/2023 Visit Date: 01/07/2023 Reason for Endocrine Consult: post op heart Provider/Team Requesting Consult: cts PCP: MAYDA Marspt [employer] Zone Assembler: No ASSESSMENT: DM 2 with hyperglycemia without meal temperer insulin Stress hyperglycemia CAD s/p Cabgx4 PLAN: [...] Oral, Daily (more content not included)... Normal [facility] Progress Note Physical Therapy Facility/Department: [facility] Physical Therapy Daily Treatment Note NAME: Lacy Alvarado : 1950 Date of Service: 01/07/2023 Discharge Recommendations: IP Rehab, Senior Living Facility PT Equipment Recommendations Equipment Needed: No [...] The primary encounter diagnosis was CAD in [place] artery. A diagnosis of Coronary artery disease involving coronary bypass graft, unspecified whether angina present, unspecified whether [place] or transplanted heart was also pertinent to this visit. has a past medical history of CHF (congestive heart failure) (CMS/HCC) ([facility]), Diabetes mellitus ([facility]), GERD (gastroesophageal reflux disease), Hyperlipidemia, Hypertension, RA (rheumatoid arthritis) ([facility]), Seizure ([facility]), Seizures ([facility]), and Sleep apnea. has a past surgical [...] / Caregiver Present: No Diagnosis: CAD in [place] artery s/p CABG on 01/01 Follows Commands: [...] for pur (more content not included)... Normal [facility] XR CHEST 1 VIEWon 01-07-2023 XR [...] Electronically Signed Date/Time: 01/07/2023 7:[address] [facility] XR Chest Single viewon 01-07 Impression: As above. Report Dictated on Electronically Signed By: Nely Pierce MD Electronically Signed Date/Time: 01/07/2023 7:57 AM EDT [facility] Patient Name: LACY SAVAGE : 1950 Exam Date/Time: 01/07/2023 05:18 Procedure: XR CHEST 1 VIEW Ordering Provider: WEAVER JENNIFER Reason For Exam: Shortness of breath Examination: Portable chest Indication: Shortness of breath Comparison: Previous day Findings: The cardiac silhouette is enlarged with median sternotomy changes. Suspect small pleural effusions. No gross consolidation or sizable infiltrate noted. No sizable pneumothorax. [facility] Nely Pierce MD - 01/07/2023 Patient [...] Electronically Signed Date/Time: 01/07/2023 7:57 AM EDT [facility] Radiology Study observation (narrative) [facility] XR Chest Single viewOrdered By: Nely Pierce on 01-07-2023 [facility] Work Phone: Basic metabolic 1998 panelon 01-06-2023 Anion gap [Moles/Vol] 11 mmol/L 3 - 13 mmol/L [facility] Calcium [Mass/Vol] 8.6 mg/dL 8.4 - 10. 4 mg/dL [facility] Chloride [Moles/Vol] 98 mmol/L 98 - 10 7 mmol/L [facility] CO2 [Moles/Vol] 27 mmol/L 22 - 30 mmol/L [facility] Creatinine [Mass/Vol] 0.99 mg/dL 0.52 - 1.04 mg/dL [facility] GFR/1.73 sq M.predicted MDRD (S/P/Bld) [Vol rate/Area] 61.5 mL/min/{1.73_m2} [facility] Comment on above: Calculation based on the Chronic Kidney Disease Epidemiology Collaboration (CKD-EPI) equation refit without adjustment for race Glucose [Mass/Vol] 95 mg/dL 70 - 100 mg/dL [facility] Potassium [Moles/Vol] 3.9 mmol/L 3.5 - 5.1 mmol/L [facility] Sodium [Moles/Vol] 136 mmol/L 135 - 145 mmol/L [facility] Urea nitrogen [Mass/Vol] 39 mg/dL High 7 - 17 mg/dL [facility] CARECOORDon 01-06-2023 [facility] too functional. Updated patient at bedside and alyssa Holloway (HCPOA) over the phone. Declined SNF at this time, would like to plan discharge home with HHC including PT/OT/SN/BLENDER MACHINE OPERATOR if possible. Will updated PEDROZA PACC, CTS LEAD RECOVERER aware. Normal [facility] CBC panel Auto (Bld)Ordered By: Farhat Curtis on 01-06-2023 Erythrocyte distribution width (RBC) [Ratio] 16.2 % High 11.5 - 14.5 % [facility] Hematocrit (Bld) [Volume fraction] 30.7 % Low 35.0 - 47.0 % [facility] Hemoglobin (Bld) [Mass/Vol] 10.2 g/dL Low 11.7 - 16.0 g/dL [facility] Interpretation and review of laboratory results Abnormal [facility] MCH (RBC) [Entitic mass] 31.7 pg 26.0 - 34.0 pg [facility] [employer] [facility] MCHC (RBC) [Mass/Vol] 33.3 % 32.0 - 36.0 % [facility] MCV (RBC) [Entitic vol] 95.3 fL 80.0 - 98.0 fL [facility] [employer] Platelet mean volume (Bld) [Entitic vol] 9.2 fL 7.4 - 12.4 fL [facility] [employer] Platelets (Bld) [#/Vol] 141 10*3/uL 140 - 440 10*3/uL [facility] RBC (Bld) [#/Vol] 3.22 10*6/uL Low 3.8 - 5.20 10*6/uL [facility] [employer] WBC (Bld) [#/Vol] 5.6 10*3/uL 3.6 - 10.7 10*3/uL [facility] [employer] Magnesiumon 01-06-2023 Magnesium [Mass/Vol] 2.7 mg/dL High 1.6 - 2 .3 mg/dL [facility] No Panel Informationon 01-06 Interpretation and review of laboratory results Abnormal [facility] [employer] POCT glucose meteron 023 Glucose [Mass/Vol] 106 mg/dL High 70 - 100 mg/dL [facility] Interpretation and review of laboratory results Abnormal [facility] [facility] Performed by: [facility], [address] [place] [address] CLIA ID: [id number] [facility] [employer] Glucose [Mass/Vol] 97 mg/dL 70 - 100 mg/dL [facility] Interpretation and review of laboratory results Normal [facility] Performed by: [facility] [employer] [facility], [address] [place] [address] CLIA ID: [id number] [facility] Glucose [Mass/Vol] 109 mg/dL High 70 - 100 mg/dL [facility] Interpretation and review of laboratory results Abnormal [facility] Performed by: [facility] [employer] [facility], [address] [place] [address] CLIA ID: [id number] [facility] [employer] [facility] Progress Noteon 01-06-2023 Progress Note Occupational Therapy Facility/Department: Occupational Therapy Initial Evaluation [...] The primary encounter diagnosis was CAD in [place] artery. A diagnosis of Coronary artery disease involving coronary bypass graft, unspecified whether angina present, unspecified whether [place] or transplanted heart was also pertinent to this visit. has a past medical history of CHF (congestive heart failure) (CMS/HCC) (HCC), Diabetes mellitus (HCC), GERD (gastroesophageal reflux disease), Hyperlipidemia, Hypertension, RA (rheumatoid arthritis) ([facility]), Seizure (HCC), Seizures (HCC), and Sleep apnea. [...] Activity Raw Score (more content not included)... [facility] Progress Note Physical Therapy Facility/Department: [facility] Physical Therapy Daily Treatment Note NAME: [...] The primary encounter diagnosis was CAD in [place] artery. A diagnosis of Coronary artery disease involving coronary bypass graft, unspecified whether angina present, unspecified whether [place] or transplanted heart was also pertinent to this visit. has a past medical history of CHF (congestive heart failure) (CMS/HCC) ([facility]), Diabetes mellitus (HCC), GERD (gastroesophageal reflux disease), [...] / Caregiver Present: No Diagnosis: CAD in [place] artery s/p CABG on 01/01 Follows Commands: [...] Restraints Init (more content not included)... Normal [facility] Progress Note ---- -------- Attestation signed [...] plan. Date of service: 01/06/23 Discussed with: []Residents[x]Patient/Fa danny [x]RN []Consultants [x]SW/TCC[]Other [x]SONYA Personally Reviewed: [x]Epic notes[x]Radiology [...] Milian. Patient was admitted on 12/18/22 to [facility] with CP history of CHF, CAD, DM [...] []Yes [x] N (more content not included)... [facility] XR CHEST 1 VIEWon 01-06-2023 XR CHEST [...] Electronically Signed Date/Time: 01/06/2023 9:[address] [facility] XR Chest Single viewon 01-06 Layering right effus ion. Atelectasis of the left base. Report Dictated on Electronically Signed By: Eyad Cohen DO Electronically Signed Date/Time: 01/06/2023 9:27 AM T [facility] Patient Name: LACY SAVAGE : 1950 [...] patient has undergone prior open heart surgery. [facility] Eyad Cohen DO - 01/06/2023 [facility] Name[facility] 1950 [id number] Exam Date/Time: 01/06/2023 05:16 Procedure: XR CHEST [...] Electronically Signed Date/Time: 01/06/2023 9:27 AM EDT [facility] [employer] Radiology Study observation (narrative) [facility] [employer] XR Chest Single viewOrdered By: Eyad Cohen on 01-06-2023 [employer] Work Phone: Basic metabolic 1998 panelon 01-05-2023 Anion gap [Moles/Vol] 11 mmol/L 3 - 13 mmol/L [facility] [employer] [facility] Calcium [Mass/Vol] 8.5 mg/dL 8.4 - 10. 4 mg/dL [facility] [employer] Chloride [Moles/Vol] 98 mmol/L 98 - 10 7 mmol/L [facility] [employer] CO2 [Moles/Vol] 27 mmol/L 22 - 30 mmol/L [facility] Creatinine [Mass/Vol] 1.25 mg/dL High 0.52 - 1.04 mg/dL [facility] GFR/1.73 sq M.predicted MDRD (S/P/Bld) [Vol rate/Area] 46.5 mL/min/{1.73_m2} Low - PINF [facility] Comment on above: Calculation based on the Chronic Kidney Disease Epidemiology Collaboration (CKD-EPI) equation refit without adjustment for race Glucose [Mass/Vol] 98 mg/dL 70 - 100 mg/dL [facility] Potassium [Moles/Vol] 3.8 mmol/L 3.5 - 5.1 mmol/L [facility] Sodium [Moles/Vol] 137 mmol/L 135 - 145 mmol/L [facility] Urea nitrogen [Mass/Vol] 43 mg/dL High 7 - 17 mg/dL [facility] CBC panel Auto (Bld)on 01-05 Erythrocyte distribution width (RBC) [Ratio] 16.0 % High 11.5 - 14.5 % [facility] Hematocrit (Bld) [Volume fraction] 28.7 % Low 35.0 - 47.0 % [facility] Hemoglobin (Bld) [Mass/Vol] 9.9 g/dL Low 11.7 - 16.0 g/dL [facility] Interpretation and review of laboratory results Abnormal [facility] MCH (RBC) [Entitic mass] 32.1 pg 26.0 - 34.0 pg [facility] MCHC (RBC) [Mass/Vol] 34.3 % 32.0 - 36.0 % [facility] MCV (RBC) [Entitic vol] 93.5 fL 80.0 - 98.0 fL [facility] Platelet mean volume (Bld) [Entitic vol] 9.9 fL 7.4 - 12.4 fL [facility] Platelets (Bld) [#/Vol] 114 10*3/uL Low 140 - 440 10*3/uL [facility] RBC (Bld) [#/Vol] 3.07 10*6/uL Low 3.8 - 5.20 10*6/uL [facility] WBC (Bld) [#/Vol] 6.7 10*3/uL 3.6 - 10.7 10*3/uL [facility] Magnesiumon 01-05-2023 Magnesium [Mass/Vol] 2.8 mg/dL High 1.6 - 2 .3 mg/dL [facility] No Panel Informationon 01-05 Interpretation and review of laboratory results Abnormal [facility] [employer] Blood Expiration Date [id number] [facility] Crossmatch interpretation COMP [employer] Dispense Status Released from [employer] Product Blood Type 5100 [facility] PRODUCT CODE [id number] [facility] Unit ABO O [facility] Unit RH Positive [facility] Unit Volume 300 mL [facility] POCT glucose meteron 023 Glucose [Mass/Vol] 105 mg/dL High 70 - 100 mg/dL [facility] Interpretation and review of laboratory results Abnormal [facility] Performed by: [facility] [employer] [facility], [address] [place] [address] CLIA ID: [id number] [facility] [employer] Glucose [Mass/Vol] 110 mg/dL High 70 - 100 mg/dL [facility] Interpretation and review of laboratory results Abnormal [facility] Performed by: [facility], [address] [place] [address] CLIA ID: [id number] [facility] [employer] Prepare RBC: 2 Unitson 01-05 Unit Number [id number] [facility] Unit Number [id number] [facility] Progress Noteon 01-05-2023 Progress Note Department of Object Oriented Developer al Medicine Division of Endocrinology, Diabetes, & Metabolism Endocrinology Note Patient Name: Lacy Alvarado : 1950 AGE: 72 y.o. Room/Bed: [facility] Admission Date: 01/01/2023 Visit Date: 01/05/2023 Reason for Endocrine Consult: post op heart Provider/Team Requesting Consult: cts PCP: MAYDA Esposito [employer] Charge Zone Assembler: No ASSESSMENT: DM 2 with hyperglycemia without snf insulin Stress hyperglycemia CAD s/p Cabgx4 PLAN: [...] polyethylene gly (more content not included)... Normal [facility] Progress Note ---- -------- Attestation signed [...] PIV GOC/Family Discussions: Full code -------- Cardiothoracic Surgery/[facility] Progress Note PATIENT NAME: Lacy Alvarado DATE: 01/05/23 HPI: Lacy Alvarado is a 72 y.o. female was referred to us by Dr. Bhanu Milian. Patient was admitted on 12/18/22 to [facility] with CP history of CHF, CAD, DM [...] lasix today. (more content not included)... Normal [facility] XR CHEST 1 VIEWon 01-05-2023 XR CHEST 1 VIEW Patient Name: LACY SAVAGE : 1950 Exam Date/Time: 01/05/2023 05:19 Procedure: XR CHEST 1 VIEW Ordering Provider: JECKEL, , SHRUTHI Reason For Exam: Shortness of breath CHEST [...] Signed Date/Time: 01/05/2023 5:[address] [facility] XR Chest Single viewon 01-05 See findings. Report Dictated on Electronically Signed By: Jake Vasquez MD Electronically Signed Date/Time: 01/05/2023 5:37 AM EDT [facility] Name[facility]AC[facility] 1950 [id number] Exam Date/Time: 01/05/2023 05:19 Procedure: XR CHEST [...] unremarkable. Bones: No acute osseous process identified. [facility] Jake Vasquez MD - 01/05/2023 Patient Name: LACY ALVARADO : 1950 [id number] Exam Date/Time: 01/05/2023 05:19 Procedure: XR CHEST [...] Electronically Signed Date/Time: 01/05/2023 5:37 AM EDT [facility] [employer] Radiology Study observation (narrative) [employer] XR Chest Single viewOrdered By: Jake Vasquez on 01-05-2023 [employer] Work Phone: Basic metabolic 1998 panelon 01-04-2023 Anion gap [Moles/Vol] 8 mmol/L 3 - 13 mmol/L [facility] Calcium [Mass/Vol] 8.5 mg/dL 8.4 - 10. 4 mg/dL [facility] Chloride [Moles/Vol] 100 mmol/L 98 - 10 7 mmol/L [facility] CO2 [Moles/Vol] 26 mmol/L 22 - 30 mmol/L [facility] Creatinine [Mass/Vol] 1.11 mg/dL High 0.52 - 1.04 mg/dL [facility] GFR/1.73 sq M.predicted MDRD (S/P/Bld) [Vol rate/Area] 53.6 mL/min/{1.73_m2} Low - PINF [facility] Comment on above: Calculation based on the Chronic Kidney Disease Epidemiology Collaboration (CKD-EPI) equation refit without adjustment for race Glucose [Mass/Vol] 97 mg/dL 70 - 100 mg/dL [facility] Potassium [Moles/Vol] 3.9 mmol/L 3.5 - 5.1 mmol/L [facility] Sodium [Moles/Vol] 135 mmol/L 135 - 145 mmol/L [facility] Urea nitrogen [Mass/Vol] 34 mg/dL High 7 - 17 mg/dL [facility] CBC panel Auto (Bld)Ordered By: Thien Sinha on 01-04-2023 Erythrocyte distribution width (RBC) [Ratio] 16.0 % High 11.5 - 14.5 % [facility] Hematocrit (Bld) [Volume fraction] 29.0 % Low 35.0 - 47.0 % [facility] Hemoglobin (Bld) [Mass/Vol] 9.9 g/dL Low 11.7 - 16.0 g/dL [facility] Interpretation and review of laboratory results Abnormal [facility] MCH (RBC) [Entitic mass] 31.9 pg 26.0 - 34.0 pg [facility] MCHC (RBC) [Mass/Vol] 34.1 % 32.0 - 36.0 % [facility] MCV (RBC) [Entitic vol] 93.4 fL 80.0 - 98.0 fL [facility] Platelet mean volume (Bld) [Entitic vol] 9.2 fL 7.4 - 12.4 fL [facility] Platelets (Bld) [#/Vol] 87 10*3/uL Low 140 - 440 10*3/uL [facility] RBC (Bld) [#/Vol] 3.10 10*6/uL Low 3.8 - 5.20 10*6/uL [facility] WBC (Bld) [#/Vol] 7.9 10*3/uL 3.6 - 10.7 10*3/uL [facility] Magnesiumon 01-04-2023 Magnesium [Mass/Vol] 2.6 mg/dL High 1.6 - 2 .3 mg/dL [facility] No Panel Informationon 01-04 Interpretation and review of laboratory results Abnormal [facility] POCT glucose meteron 023 Glucose [Mass/Vol] 116 mg/dL High 70 - 100 mg/dL [facility] Interpretation and review of laboratory results Abnormal [facility] Performed by: [facility], [address] [address] CLIA ID: [id number] [facility] Glucose [Mass/Vol] 119 mg/dL High 70 - 100 mg/dL [facility] Interpretation and review of laboratory results Abnormal [facility] Performed by: [facility], [address] [address] CLIA ID: [id number] [facility] Glucose [Mass/Vol] 122 mg/dL High 70 - 100 mg/dL [facility] Interpretation and review of laboratory results Abnormal [facility]formed by: [facility], [address] [place] [address] CLIA ID: [id number] [facility] Progress Noteon 01-04-2023 Progress Note Cardiothoracic Surge [...] to observe for. Will continue to monitor. Normal [facility] Progress Note Physical Therapy Facility/Department: [facility] Physical Therapy Daily Treatment Note NAME: Lacy [...] her apartment. Currently, recommend IP Rehab at [facility]. Performance Deficits/Impairments: Decreased functional mobility , Decreased endurance, Increased pain, Decreased ADL status, Decreased strength, Decreased posture, Decreased balance Decision Making: Medium Complexity Patient Diagnosis(es): The primary encounter diagnosis was CAD in [place] artery. A diagnosis of Coronary artery disease involving coronary bypass graft, unspecified whether angina present, unspecified whether [place] or transplanted heart was also pertinent to this visit. has a past medical history of CHF (congestive heart failure) (CMS/HCC) ([facility]), Diabetes mellitus ([facility]), GERD (gastroesophageal reflux disease), Hyperlipidemia, Hypertension, RA (rheumatoid arthritis) ([facility]), Seizure ([facility]), Seizures ([facility]), and Sleep apnea. has a past surgical [...] / Caregiver Present: No Diagnosis: CAD in [place] artery s/p CABG on 01/01 Follows Commands: [...] Start: 01/02/23 (more content not included)... Normal [facility] Progress Note Department of Object Oriented Developer al Medicine Division of Endocrinology, Diabetes, & Metabolism Endocrinology Note Patient Name: Lacy Alvarado : 1950 AGE: 72 y.o. Room/Bed: T1-103/T1-103 A Admission Date: 01/01/2023 Visit Date: 01/04/2023 Reason for Endocrine Consult: post op heart Provider/Team Requesting Consult: cts PCP: MAYDA GARCIA Outpt [employer] Charge Zone Assembler: No ASSESSMENT: DM 2 with hyperglycemia without meal temperer insulin Stress hyperglycemia CAD s/p Cabgx4 PLAN: [...] 01/04/23 0000 01/04/23 0400 01/04/23 0600 01/04/23 09 BP: 121/73 119/66 123/56 BP Location: Right [...] 0-6 Units, SubCUTAneo (more content not included)... [facility] XR CHEST 1 VIEWon 01-04-2023 XR CHEST 1 VIEW Patient Name: LACY SAVAGE : 1950 [id number] Exam Date/Time: 01/04/2023 05:18 Procedure: XR CHEST [...] Electronically Signed Date/Time: 01/04/2023 7:[address] [facility] XR Chest Single viewon 01-04 No significant change when compared with the previous study. Report Dictated on Electronically Signed By: Dino Jurado MD Electronically Signed Date/Time: 01/04/2023 7:18 AM EDT [facility] Patient Name: LACY SAVAGE : 1950 [...] There are degenerative changes of the spine. [facility] Dino Jurado MD - 01/04/2023 Patient Name: LACY ALVARADO : 1950 Exam Date/Time: 01/04/2023 05:18 Procedure: [...] Electronically Signed Date/Time: 01/04/2023 7:18 AM EDT [facility] Radiology Study observation (narrative) [facility] Basic metabolic 1998 panelon 01-03-2023 Anion gap [Moles/Vol] 7 mmol/L 3 - 13 mmol/L [facility] Calcium [Mass/Vol] 8.5 mg/dL 8.4 - 10. 4 mg/dL [facility] Chloride [Moles/Vol] 103 mmol/L 98 - 10 7 mmol/L [facility] CO2 [Moles/Vol] 25 mmol/L 22 - 30 mmol/L [facility] Creatinine [Mass/Vol] 0.80 mg/dL 0.52 - 1.04 mg/dL [facility] GFR/1.73 sq M.predicted MDRD (S/P/Bld) [Vol rate/Area] 79.4 mL/min/{1.73_m2} - PINF [facility] Comment on above: Calculation based on the Chronic Kidney Disease Epidemiology Collaboration (CKD-EPI) equation refit without adjustment for race Glucose [Mass/Vol] 113 mg/dL High 70 - 100 mg/dL [facility] Interpretation and review of laboratory results Abnormal [facility] Potassium [Moles/Vol] 4.4 mmol/L 3.5 - 5.1 mmol/L [facility] Sodium [Moles/Vol] 136 mmol/L 135 - 145 mmol/L [facility] Urea nitrogen [Mass/Vol] 23 mg/dL High 7 - 17 mg/dL [facility] CBC panel Auto (Bld)Ordered By: Igor Gar on 01-03-2023 Erythrocyte distribution width (RBC) [Ratio] 16.7 % High 11.5 - 14.5 % [facility] Hematocrit (Bld) [Volume fraction] 29.5 % Low 35.0 - 47.0 % [facility] Hemoglobin (Bld) [Mass/Vol] 10.1 g/dL Low 11.7 - 16.0 g/dL [facility] Interpretation and review of laboratory results Abnormal [facility] MCH (RBC) [Entitic mass] 31.8 pg 26.0 - 34.0 pg [facility] MCHC (RBC) [Mass/Vol] 34.1 % 32.0 - 36.0 % [facility] MCV (RBC) [Entitic vol] 93.3 fL 80.0 - 98.0 fL [facility] Platelet mean volume (Bld) [Entitic vol] 9.1 fL 7.4 - 12.4 fL [facility] Platelets (Bld) [#/Vol] 82 10*3/uL Low 140 - 440 10*3/uL [facility] RBC (Bld) [#/Vol] 3.16 10*6/uL Low 3.8 - 5.20 10*6/uL [facility] WBC (Bld) [#/Vol] 8.6 10*3/uL 3.6 - 10.7 10*3/uL [facility] IDNon 01-03-2023 IDN Problem: Knowledge Deficit Goal: [...] Goal: Assess Nutritional Intake Outcome: Progressing Normal [facility] Magnesiumon 01-03-2023 Magnesium [Mass/Vol] 2.3 mg/dL 1.6 - 2 .3 mg/dL [facility] Magnesium [Mass/Vol]on 01-03 Interpretation and review of laboratory results Normal [facility] No Panel Informationon 01-03 [facility] POCT glucose meteron 023 Glucose [Mass/Vol] 150 mg/dL High 70 - 100 mg/dL [facility] Interpretation and review of laboratory results Abnormal [facility] Performed by: [facility], [address] [place] [address] CLIA ID: [id number] [facility] Glucose [Mass/Vol] 135 mg/dL High 70 - 100 mg/dL [facility] Interpretation and review of laboratory results Abnormal [facility] Performed by: [facility] [employer] [facility], [address] [place] [address] CLIA ID: [id number] [facility] Glucose [Mass/Vol] 133 mg/dL High 70 - 100 mg/dL [facility] Interpretation and review of laboratory results Abnormal [facility] Performed by: [facility], [address] [place] [address] CLIA ID: [id number] [facility] PROTIME/INR & PTTon 01-04-20 23 aPTT Coag (PPP) [Time] 31.7 s High 20.0 - 30.5 s [facility] [employer] INR Coag (PPP) [Relative time] 1.1 {INR} 0.9 - 1.1 [facility] [employer] Comment on above: Recommended Anticoag ulant Therapy: [...] Interpretation and review of laboratory results Abnormal [facility] PT Coag (Bld) [Time] 11.6 s 9.0 - 12.0 s [facility] [facility] Progress Noteon 01-03-2023 Progress Note Department of Object Oriented Developer al Medicine Division of Endocrinology, Diabetes, & Metabolism Endocrinology Note Patient Name: Lacy Alvarado : 1950 AGE: 72 y.o. Room/Bed: T1-103/T1-103 A Admission Date: 01/01/2023 Visit Date: 01/03/2023 Reason for Endocrine Consult: post op heart Provider/Team Requesting Consult: edwin PCP: MAYDA GARCIA Outpt [employer] Charge Zone Assembler: No ASSESSMENT: DM 2 with hyperglycemia without snf insulin Stress hyperglycemia CAD s/p Cabgx4 PLAN: [...] Daily magn (more content not included)... Normal [facility] XR CHEST 1 VIEWon 01-03-2023 XR [...] Signed Date/Time: 01/03/2023 10:[address] [facility] XR Chest Single viewon 01-03 No significant change when compared with the previous study. Report Dictated on Electronically Signed By: Dino Jurado MD Electronically Signed Date/Time: 01/03/2023 10:16 AM EDT [facility] Patient Name: LACY SAVAGE : 1950 [...] There are degenerative changes of the spine. [facility] Dino Jurado MD - 01/03/2023 Patient Name: LACY ALVARADO : 1950 [facility]#: [id number] Exam Date/Time: 01/03/2023 05:54 Procedure: XR CHEST [...] Electronically Signed Date/Time: 01/03/2023 10:16 AM EDT [facility] Radiology Study observation (narrative) [facility] XR Chest Single viewOrdered By: Dino Jurado on 01-03-2023 [facility] [employer] Work Phone: [phone] 01-02-2023 [id number] [facility] [employer] following case for Discharge Needs. Normal [facility] Basic metabolic 1998 panelon 01-02-2023 Anion gap [Moles/Vol] 10 mmol/L 3 - 13 mmol/L [facility] Calcium [Mass/Vol] 8.7 mg/dL 8.4 - 10. 4 mg/dL [facility] Chloride [Moles/Vol] 107 mmol/L 98 - 10 7 mmol/L [facility] CO2 [Moles/Vol] 23 mmol/L 22 - 30 mmol/L [facility] Creatinine [Mass/Vol] 0.99 mg/dL 0.52 - 1.04 mg/dL [facility] GFR/1.73 sq M.predicted MDRD (S/P/Bld) [Vol rate/Area] 61.5 mL/min/{1.73_m2} - [facility] Comment on above: Calculation based on the Chronic Kidney Disease Epidemiology Collaboration (CKD-EPI) equation refit without adjustment for race Glucose [Mass/Vol] 104 mg/dL High 70 - 100 mg/dL [facility] Interpretation and review of laboratory results Abnormal [facility] Potassium [Moles/Vol] 4.5 mmol/L 3.5 - 5.1 mmol/L [facility] Sodium [Moles/Vol] 140 mmol/L 135 - 145 mmol/L [facility] Urea nitrogen [Mass/Vol] 20 mg/dL High 7 - 17 mg/dL [facility] Anion gap [Moles/Vol] 13 mmol/L 3 - 13 mmol/L [facility] Calcium [Mass/Vol] 8.3 mg/dL Low 8.4 - 10. 4 mg/dL [facility] [facility] Chloride [Moles/Vol] 107 mmol/L 98 - 10 7 mmol/L [facility] CO2 [Moles/Vol] 21 mmol/L Low 22 - 30 mmol/L [facility] Creatinine [Mass/Vol] 0.86 mg/dL 0.52 - 1.04 mg/dL [facility] GFR/1.73 sq M.predicted MDRD (S/P/Bld) [Vol rate/Area] 72.8 mL/min/{1.73_m2} - [facility] Comment on above: Calculation based on the Chronic Kidney Disease Epidemiology Collaboration (CKD-EPI) equation refit without adjustment for race Glucose [Mass/Vol] 134 mg/dL High 70 - 100 mg/dL [facility] Interpretation and review of laboratory results Abnormal [facility] Potassium [Moles/Vol] 4.5 mmol/L 3.5 - 5.1 mmol/L [facility] Sodium [Moles/Vol] 140 mmol/L 135 - 145 mmol/L [facility] Urea nitrogen [Mass/Vol] 19 mg/dL High 7 - 17 mg/dL [facility] CARECOORDon 01-02-2023 [facility] Care Managment Initi al Assessment Date: 01/02/2023 Patient Name: Lacy Alvarado : 1950 Patient Information Source of Information: Patient Cognition/Language: WFL - Within Functional Limits Permission given to speak with patient shared services representative/caregiver as indicated: Yes Confirmation of Payer [...] Living Prescription Coverage: Yes Pharmacy Used: [facility] [place] Medication Management: Independent Transportation/Shopping: Assistance Provider Transportation/Shopping [...] home care needs. Delores Mullins RN Normal [facility] CBC panel Auto (Bld)Ordered By: Maurilio Vidal on 01-02-2023 Erythrocyte distribution width (RBC) [Ratio] 16.8 % High 11.5 - 14.5 % [facility] Hematocrit (Bld) [Volume fraction] 25.7 % Low 35.0 - 47.0 % [facility] Hemoglobin (Bld) [Mass/Vol] 8.7 g/dL Low 11.7 - 16.0 g/dL [facility] Interpretation and review of laboratory results Abnormal [facility] [employer] MCH (RBC) [Entitic mass] 31.3 pg 26.0 - 34.0 pg [facility] MCHC (RBC) [Mass/Vol] 33.9 % 32.0 - 36.0 % [facility] MCV (RBC) [Entitic vol] 92.4 fL 80.0 - 98.0 fL [facility] [facility] Platelet mean volume (Bld) [Entitic vol] 9.0 fL 7.4 - 12.4 fL [facility] [employer] Platelets (Bld) [#/Vol] 80 10*3/uL Low 140 - 440 10*3/uL [facility] RBC (Bld) [#/Vol] 2.79 10*6/uL Low 3.8 - 5.20 10*6/uL [facility] WBC (Bld) [#/Vol] 6.1 10*3/uL 3.6 - 10.7 10*3/uL [facility] ECG 12 leadOrdered By: Slava Martins on 01-02-2023 Heart rate 95 /min bpm [employer] Work Phone: P [place] 53 degrees [employer] Work Phone: UT Interval 183 ms [employer] Work Phone: QRS [place] 20 degrees [employer] Work Phone: QRSD Interval 86 ms [facility] Work [facility]: QT Interval 380 ms [employer] Work Phone: [phone] QTC Interval 480 ms [employer] Work Phone: T Wave [place] 27 degrees [facility] Work Phone: [employer] Work Phone: ECG 12 leadon 01-02-2023 Sinus rhythm Electronically Signed On 01-02-2023 9:42:47 EDT by Michelle Stanley MD - 01/02/2023 IMPRESSION: Sinus rhythm Electronically Signed On 9-1-2023 9:42:47 EDT by [facility] Heart rate 102 /min bpm [facility] P [place] 56 degrees [facility] UT Interval 147 ms [facility] QRS [place] 6 degrees [facility] QRSD Interval 70 ms [facility] QT Interval 332 ms [facility] QTC Interval 433 ms [facility] T Wave [place] 29 degrees [facility] Sinus tachycardia Probable left atrial enlargement Minimal ST elevation, inferior leads Electronically Signed On 01-02-2023 8:55:59 EDT by Michelle Stanley MD - 01/02/2023 IMPRESSION: Sinus tachycardia Probable left atrial enlargement Minimal ST elevation, inferior leads Electronically Signed On 01-02-2023 8:55:59 EDT by [facility] ECG 12-LEADon 01-02-2023 ECG 12-LEAD IMPRESSION: Sinus rhythm Electronically Signed On 01-02-2023 9:42:[address] [facility] ECG 12-LEAD IMPRESSION: Sinus tachycardia Probable left atrial enlargement Minimal ST elevation, inferior leads Electronically Signed On 01-02-2023 8:55:[address] [facility] Magnesiumon 01-02-2023 Magnesium [Mass/Vol] 2.3 mg/dL 1.6 - 2 .3 mg/dL [facility] Magnesium [Mass/Vol]on 01-02 Interpretation and review of laboratory results Normal [facility] No Panel Informationon 01-02 [facility] POCT glucose meteron 023 Glucose [Mass/Vol] 116 mg/dL High 70 - 100 mg/dL [facility] Interpretation and review of laboratory results Abnormal [facility] Performed by: [facility], [address] [facility] [address] CLIA ID: [id number] [facility] Glucose [Mass/Vol] 121 mg/dL High 70 - 100 mg/dL [facility] Interpretation and review of laboratory results Abnormal [facility] Performed by: [facility], [address] [address] CLIA ID: [id number] [facility] Glucose [Mass/Vol] 121 mg/dL High 70 - 100 mg/dL [facility] Interpretation and review of laboratory results Abnormal [facility] Performed by: [facility], [address] [place] [address] CLIA ID: [id number] [facility] Glucose [Mass/Vol] 132 mg/dL High 70 - 100 mg/dL [facility] Interpretation and review of laboratory results Abnormal [facility] Performed by: [facility], [address] [place] [address] CLIA ID: [id number] [facility] Glucose [Mass/Vol] 132 mg/dL High 70 - 100 mg/dL [facility] Interpretation and review of laboratory results Abnormal [facility] Performed by: [facility], [address] [place] [address] CLIA ID: [id number] [facility] Glucose [Mass/Vol] 120 mg/dL High 70 - 100 mg/dL [facility] Interpretation and review of laboratory results Abnormal [facility] Performed by: [facility], [address] [place] [address] CLIA ID: [id number] [facility] Glucose [Mass/Vol] 145 mg/dL High 70 - 100 mg/dL [facility] Interpretation and review of laboratory results Abnormal [facility] Performed by: [facility], [address] [place] [address] CLIA ID: [id number] [facility] Glucose [Mass/Vol] 136 mg/dL High 70 - 100 mg/dL [facility] Interpretation and review of laboratory results Abnormal [facility] Performed by: [facility], [address] [place] [address] CLIA ID: [id number] [facility] Glucose [Mass/Vol] 118 mg/dL High 70 - 100 mg/dL [facility] Interpretation and review of laboratory results Abnormal [facility] Performed by: [facility], [address] [place] [address] CLIA ID: [id number] [facility] Glucose [Mass/Vol] 144 mg/dL High 70 - 100 mg/dL [facility] Interpretation and review of laboratory results Abnormal [facility] Performed by: [facility], [address] [place] [address] CLIA ID: [id number] [facility] Glucose [Mass/Vol] 153 mg/dL High 70 - 100 mg/dL [facility] Interpretation and review of laboratory results Abnormal [facility] Performed by: [facility], [address] [place] [address] CLIA ID: [id number] [facility] PROTIME/INR & PTTon 01-03-20 23 aPTT Coag (PPP) [Time] 30.9 s High 20.0 - 30.5 s [facility] INR Coag (PPP) [Relative time] 1.1 {INR} 0.9 - 1.1 [facility] Comment on above: Recommended Anticoag ulant Therapy: [...] Interpretation and review of laboratory results Abnormal [facility] PT Coag (Bld) [Time] 11.9 s 9.0 - 12.0 s [facility] Progress Noteon 01-02-2023 Progress Note Physical Therapy Facility/Department: [facility] Physical Therapy Initial Evaluation NAME: Lacy [...] The primary encounter diagnosis was CAD in [place] artery. A diagnosis of Coronary artery disease involving coronary bypass graft, unspecified whether angina present, unspecified whether [place] or transplanted heart was also pertinent to this visit. has a past medical history of CHF (congestive heart failure) (CMS/HCC) ([facility]), Diabetes mellitus ([facility]), GERD (gastroesophageal reflux disease), Hyperlipidemia, Hypertension, RA (rheumatoid arthritis) ([facility]), Seizure ([facility]), Seizures ([facility]), and Sleep apnea. has a past surgical [...] / Caregiver Present: No Diagnosis: CAD in [place] artery s/p CABG on 01/01 Follows Commands: Within Functional Limits Subjective Subjective: Pt sitting up in chair and agreed to PT. /10 pain reported in chest through incision site. [...] with min (more content not included)... Normal [facility] Progress Note ---- -------- Attestation signed [...] Alvarado : 1950 AGE: 72 y.o. Room/Bed: T1-103/T1 A Admission Date: 01/01/2023 Visit Date: 01/02/2023 Reason for Endocrine Consult: post op heart Provider/Team Requesting Consult: cts PCP: MAYDA GARCIA [employer] Charge Zone Assembler: No ASSESSMENT: Cad s/p Cabgx4 Dm2 with hyperglycemia without snf insulin Stress hyperglycemia Chf Hld/htn PLAN: discontinue [...] Breath sounds: (more content not included)... Normal [facility] Progress Note ---- -------- Attestation signed [...] Milian. Patient was admitted on 12/18/22 to [facility] with CP history of CHF, CAD, DM [...] thrombocytopenia. Re (more content not included)... Normal [facility] XR CHEST 1 VIEWon 01-02-2023 XR CHEST 1 VIEW [facility] 1950 [id number] Exam Date/Time: 01/02/2023 05:15 Procedure: XR CHEST [...] Electronically Signed Date/Time: 01/02/2023 9:48 AM EDT Normal [facility] XR Chest Single viewon 01-02 Lines, tubes, [...] MD Electronically Signed Date/Time: 01/02/2023 9:48 AM T [facility] EMERG[facility] RADIOLOGY SYSTEM Patient Name: LACY SAVAGE : 1950 Exam Date/Time: 01/02/2023 05:15 Procedure: XR CHEST 1 VIEW Ordering Provider: WEAVER JENNIFER Reason For Exam: Shortness of breath EXAMINATION: CHEST RADIOGRAPH (SINGLE VIEW AP OR PA) Clinical History: Shortness of breath Comparison: Chest radiograph 01/01/2023 and 12/29/2022 RESULT: See impression [facility] EMERG[facility]PART[facility] RADIOLOGY SYSTEM Johan Ervin MD - 01/02/2023 Patient Name: LACY ALVARADO : 1950 Exam Date/Time: 01/02/2023 05:15 Procedure: [...] Electronically Signed Date/Time: 01/02/2023 9:48 AM EDT [facility] Radiology Study observation (narrative) [employer] XR Chest Single viewOrdered By: Johan Ervin on 01-02-2023 [facility] [employer] Work Phone: Basic metabolic 1998 panelon 01-01-2023 Anion gap [Moles/Vol] 10 mmol/L 3 - 13 mmol/L [facility] Calcium [Mass/Vol] 9.0 mg/dL 8.4 - 10. 4 mg/dL [facility] Chloride [Moles/Vol] 110 mmol/L High 98 - 10 7 mmol/L [facility] CO2 [Moles/Vol] 20 mmol/L Low 22 - 30 mmol/L [facility] Creatinine [Mass/Vol] 0.77 mg/dL 0.52 - 1.04 mg/dL [facility] GFR/1.73 sq M.predicted MDRD (S/P/Bld) [Vol rate/Area] 83.1 mL/min/{1.73_m2} - PINF [facility] Comment on above: Calculation based on the Chronic Kidney Disease Epidemiology Collaboration (CKD-EPI) equation refit without adjustment for race Glucose [Mass/Vol] 124 mg/dL High 70 - 100 mg/dL [facility] [employer] Potassium [Moles/Vol] 3.6 mmol/L 3.5 - 5.1 mmol/L [facility] [employer] Sodium [Moles/Vol] 140 mmol/L 135 - 145 mmol/L [facility] Urea nitrogen [Mass/Vol] 21 mg/dL High 7 - 17 mg/dL [facility] Blood gas, arterialOrdered B y: Arthur Lisa on 01-01-2023 Base excess Calc (Bld) [Moles/Vol] -3.3000 mmol/L Low -3.0 - 3.0 mmol/L [facility] CO2 (Bld) [Partial pressure] 30.7 mm[Hg] Low - PINF [facility] [facility] CO2 [Moles/Vol] 21.4 mmol/L Low 23.0 - 27.0 mmol/L [facility] [employer] HCO3 (Bld) [Moles/Vol] 20.4 mmol/L Low 21.0 - 25.0 mmol/L [facility] [employer] Hemoglobin (Bld) [Mass/Vol] 7.1 g/dL Screen Only [facility] Interpretation and review of laboratory results Abnormal [facility] Oxygen (Bld) [Partial pressure] 243.2 mm[Hg] High [facility] pH (Bld) 7.441 [pH] 7.350 - 7.450 [facility] Source Of Oxygen Vent [facility] CBC panel Auto (Bld)on 01-01 Erythrocyte distribution width (RBC) [Ratio] 14.2 % 11.5 - 14.5 % [facility] Hematocrit (Bld) [Volume fraction] 20.0 % Low 35.0 - 47.0 % [facility] Hemoglobin (Bld) [Mass/Vol] 6.9 g/dL Critically low 11.7 - 16.0 g/dL [facility] Interpretation and review of laboratory results Abnormal [facility] MCH (RBC) [Entitic mass] 33.1 pg 26.0 - 34.0 pg [facility] MCHC (RBC) [Mass/Vol] 34.3 % 32.0 - 36.0 % [facility] MCV (RBC) [Entitic vol] 96.7 fL 80.0 - 98.0 fL [facility] Platelet mean volume (Bld) [Entitic vol] 8.7 fL 7.4 - 12.4 fL [facility] Platelets (Bld) [#/Vol] 79 10*3/uL Low 140 - 440 10*3/uL [facility] RBC (Bld) [#/Vol] 2.07 10*6/uL Low 3.8 - 5.20 10*6/uL [facility] WBC (Bld) [#/Vol] 9.0 10*3/uL 3.6 - 10.7 10*3/uL [facility] Repeated [facility] CBC panel Auto (Bld)Ordered By: Sadie Jackson on 01-01-2023 Erythrocyte distribution width (RBC) [Ratio] 14.3 % 11.5 - 14.5 % [facility] Hematocrit (Bld) [Volume fraction] 21.4 % Low 35.0 - 47.0 % [facility] Hemoglobin (Bld) [Mass/Vol] 7.2 g/dL Low 11.7 - 16.0 g/dL [facility] Interpretation and review of laboratory results Abnormal [facility] MCH (RBC) [Entitic mass] 32.7 pg 26.0 - 34.0 pg [facility] MCHC (RBC) [Mass/Vol] 33.7 % 32.0 - 36.0 % [facility] MCV (RBC) [Entitic vol] 97.2 fL 80.0 - 98.0 fL [facility] Platelet mean volume (Bld) [Entitic vol] 9.0 fL 7.4 - 12.4 fL [facility] Platelets (Bld) [#/Vol] 78 10*3/uL Low 140 - 440 10*3/uL [facility] Comment on above: This result was prev iously suppressed from the chart. RBC (Bld) [#/Vol] 2.20 10*6/uL Low 3.8 - 5.20 10*6/uL [facility] WBC (Bld) [#/Vol] 7.1 10*3/uL 3.6 - 10.7 10*3/uL [facility] Calcium.ionized [Moles/Vol]o n 01-01-2023 Calcium.ionized (Bld) [Moles/Vol] 4.80 mg/dL 4.30 - 5.20 mg/dL [facility] Interpretation and review of laboratory results Normal [facility] PH, IONIZED CALCIUM 7.46 7.31 - 7.46 [facility] Consulton 01-01-2023 Consult ---- -------- [...] Alvarado : 1950 AGE: 72 y.o. Room/Bed: T1-103/T1 A Admission Date: 01/01/2023 Visit Date: 01/01/2023 Reason for Endocrine Consult: post op heart Provider/Team Requesting Consult: cts PCP: MAYDA GARCAI [employer] Zone Assembler: No ASSESSMENT: Cad s/p Cabgx4 Dm2 with hyperglycemia without meal temperer insulin Stress hyperglycemia Chf Hld/htn PLAN: Continue [...] times dana (more content not included)... Normal [facility] Consult ---- -------- Attestation signed by Carlos Chavarria DO at 01/01/2023 2:48 PM I have personally performed a [id number] diagnostic evaluation on this patient on date of service 01/01/23 . History, labs, imaging studies, and electronic medical record have been reviewed by me. This note documented by the []mix house operator [x]SONYA reflects my history, exam, and medical [...] leak in CTs No Pacer wires -------- [facility]: Critical Care Consultation Note Date: 01/01/23 PATIENT NAME: Lacy Alvarado : 1950 (72 y.o.) Reason for Consult: Critical Care & Vent Management HPI: Lacy Alvarado is a 72 y.o. female was referred to us by Dr. Bhanu Milian. Patient was admitted on 12/18/22 to [facility] with CP history of CHF, CAD, DM [...] CHF (congestive heart failure) (CMS/HCC) ([facility]), Diabetes mellitus ([facility]), GERD (gastroesophageal reflux disease), Hyperlipidemia, Hypertension, RA (rheumatoid arthritis) ([facility]), Seizure ([facility]), Seizures ([facility]), and Sleep apnea. Past Surgical History: has [...] on 01/01/2023 12/24/22 Kassy Tabares APRN - PROFESSOR OF SPANISH traMADol (Ultram) 50 MG tablet Take 50 mg by mouth. 11/28/21 Historical Provider, Surgery Hand Off: Arrival Time in [facility]: 1115 Complications/Pertinent Events: Last Paralytic: Medications given in route: Gtts OR report Propofol: 50 Insulin: 1 Amicar: 29 Current gtts upon arrival Propofol:50 Insulin: 1 Amicar: 29 Devices (more content not included)... [facility] FibrinogenOrdered By: Stephania dunlap on 01-01-2023 Fibrinogen Coag (PPP) [Mass/Vol] 149 mg/dL Low 200 - 400 mg/dL [facility] Fibrinogen Coag (PPP) [Mass/ Vol]Ordered By: Stephania Cummings on 01-01-2023 Interpretation and review of laboratory results Abnormal [facility] Hemoglobin (Bld) [Mass/Vol]O rdered By: Lety Decker on 01-01-2023 Hematocrit (Bld) [Volume fraction] 26.8 % Low 35.0 - 47.0 % [facility] Interpretation and review of laboratory results Abnormal [facility] Hemoglobin and hematocrit, b loodOrdered By: Lety Decker on 01-01-2023 Hemoglobin (Bld) [Mass/Vol] 9.1 g/dL Low 11.7 - 16.0 g/dL [facility] Magnesiumon 01-01-2023 Magnesium [Mass/Vol] 3.4 mg/dL High 1.6 - 2 .3 mg/dL [facility] No Panel Informationon 01-01 Blood Expiration Date [id number] S [facility] Crossmatch interpretation COMP [facility] [employer] Dispense Status Transfused [facility] Product Blood Type 5100 [facility] PRODUCT CODE [id number] [facility] ABO O [facility] RH Positive [facility] Unit Volume 300 mL [facility] Interpretation and review of laboratory results Abnormal [facility] POCT glucose meteron 023 Glucose [Mass/Vol] 141 mg/dL High 70 - 100 mg/dL [facility] Interpretation and review of laboratory results Abnormal [facility] Performed by: [facility], [address] [place] [address] CLIA ID: [id number] [facility] Glucose [Mass/Vol] 148 mg/dL High 70 - 100 mg/dL [facility] Interpretation and review of laboratory results Abnormal [facility] Performed by: [facility], [address] [place] [address] CLIA ID: [id number] [facility] Glucose [Mass/Vol] 138 mg/dL High 70 - 100 mg/dL [facility] Interpretation and review of laboratory results Abnormal [facility] Performed by: [facility], [address] [place] [address] CLIA ID: [id number] [facility] Glucose [Mass/Vol] 121 mg/dL High 70 - 100 mg/dL [facility] Interpretation and review of laboratory results Abnormal [facility] Performed by: [facility], [address] [place] [address] CLIA ID: [id number] [facility] Glucose [Mass/Vol] 142 mg/dL High 70 - 100 mg/dL [facility] Interpretation and review of laboratory results Abnormal [facility] Performed by: [facility], [address] [place] [address] CLIA ID: [id number] [facility] Glucose [Mass/Vol] 133 mg/dL High 70 - 100 mg/dL [facility] Interpretation and review of laboratory results Abnormal [facility] Performed by: [facility], [address] [place] [address] CLIA ID: [id number] [facility] Glucose [Mass/Vol] 152 mg/dL High 70 - 100 mg/dL [facility] Interpretation and review of laboratory results Abnormal [facility] Performed by: [facility], [address] [place] [address] CLIA ID: [id number] [facility] Glucose [Mass/Vol] 170 mg/dL High 70 - 100 mg/dL [facility] Interpretation and review of laboratory results Abnormal [facility] Performed by: [facility], [address] [place] [address] CLIA ID: [id number] [facility] Glucose [Mass/Vol] 120 mg/dL High 70 - 100 mg/dL [facility] Interpretation and review of laboratory results Abnormal [facility] Performed by: [facility], [address] [place] [address] CLIA ID: [id number] [facility] Glucose [Mass/Vol] 84 mg/dL 70 - 100 mg/dL [facility] Interpretation and review of laboratory results Normal [facility] Performed by: [facility], [address] [place] [address] CLIA ID: [id number] [facility] Glucose [Mass/Vol] 82 mg/dL 70 - 100 mg/dL [facility] Interpretation and review of laboratory results Normal [facility] Performed by: [facility] [employer] [facility], [address] [place] [address] CLIA ID: [id number] [facility] [employer] Glucose [Mass/Vol] 101 mg/dL High 70 - 100 mg/dL [facility] Interpretation and review of laboratory results Abnormal [facility] Performed by: [facility], [address] [place] [address] CLIA ID: [id number] [facility] Glucose [Mass/Vol] 125 mg/dL High 70 - 100 mg/dL [facility] Interpretation and review of laboratory results Abnormal [facility] Performed by: [facility] [employer] [facility], [address] [place] [address] CLIA ID: [id number] [facility] Dis[facility]or Beam PROTIME/INR & PTTon 01-02-20 aPTT Coag (PPP) [Time] 24.2 s 20.0 - 30.5 s [facility] INR Coag (PPP) [Relative time] 1.3 {INR} High 0.9 - 1.1 [facility] Comment on above: Recommended Anticoag ulant Therapy: [...] Interpretation and review of laboratory results Abnormal [facility] PT Coag (Bld) [Time] 14.0 s High 9.0 - 12.0 s [facility] Disruptor Beam Phosphate [Moles/Vol]on 12-04 Interpretation and review of laboratory results Normal [facility] Phosphate [Mass/Vol] 3.7 mg/dL 2.5 - 4 .5 mg/dL [facility] Disruptor Beam Prepare RBC: 2 Unitson 01-01 Unit Number [id number] [facility] Disruptor Beam Unit Number [id number] [facility] Disruptor Beam US Heart Transesophagealon 0 01-01-2023 Left Ventricle: [...] Echo Additional Conclusions No significant valvular abnormalities. [facility] XR CHEST 1 VIEWon 01-01-2023 XR CHEST 1 VIEW [facility] Name[facility] 1950 [id number] Exam Date/Time: 01/01/2023 13:18 Procedure: XR CHEST [...] Signed Date/Time: 01/01/2023 1:[address] [facility] XR Chest Single viewon 01-01 1. Status post thora cic surgery (CABG). 2. Line and tube placements as described. 3. Pulmonary vascular congestion without evidence of other acute cardiopulmonary process. Report Dictated on Electronically Signed By: Gómez Calvert MD Electronically Signed Date/Time: 01/01/2023 1:55 PM EDT [facility] EMERGENCY DEPARTMENT RADIOLOGY SYSTEM [facility] Name[facility] 1950 [id number] Exam Date/Time: 01/01/2023 13:18 Procedure: XR CHEST [...] heart failure, infiltrate or pneumothorax is seen. [facility] EMERGENCY DEPARTMENT RADIOLOGY SYSTEM Gómez Calvert MD - 01/01/2023 Patient Name: LACY [facility]VARADO [facility] 1950 [id number] Exam Date/Time: 01/01/2023 13:18 Procedure: XR CHEST [...] Electronically Signed Date/Time: 01/01/2023 1:55 PM EDT [facility] Radiology Study observation (narrative) [facility] XR Chest Single viewOrdered By: Gómez Calvert on 01-01-2023 [facility] Disruptor Beam Work Phone: ECG 12-LEADon 12-30-2022 ECG 12-LEAD IMPRESSION: Sinus rhythm Probable left atrial enlargement Electronically Signed On 12-30-2022 8:43:39 [address] Chris Franks [facility] XR CHEST 2 VIEWSon 3 XR CHEST 2 VIEWS Patient Name: LACY [facility]AGE : 1950 [id number] Exam Date/Time: 12/29/2022 15:44 Procedure: XR CHEST [...] Electronically Signed Date/Time: 12/30/2022 11:[address] [facility] PREPROCINSon 12-29-2022 PREPROCINS Medication List Accurate as [...] have specific questions, please call your surgeon. RECYCLING OPERATIONS MANAGER ENTER BUILDING AT THE MAIN ENTRANCE. TAKE THE H ELEVATOR TO THE FIRST FLOOR, TURN LEFT OFF THE ELEVATOR AND GO TO THE SAME DAY SURGERY REGISTRATION DESK TO CHECK IN [facility] 12-26-2022 36 Pre op teaching done with patient. Instructed to hold NSAIDS except Aspirin 7 days prior to surgery, hold Plavix 7 days prior to surgery, and not to take any medications day of surgery. Pharmacy confirmed. All questions answered. [facility] [id number] 36 Called spoke with patient, all questions answered [facility] 36 Surg proc orders michael patience, medications e-scribed - talked to patient, answered all questions. [place] [address]on 08-22-2023 36 Patient is scheduled for CABG on 01/01. Patient lives on the third floor and asking if she is able to climb all those stairs right after surgery? Please advise [phone] Normal [facility] Office Visiton 12-23-2022 Follow-up visit [id number] Villagomez 1950 F Date Provider Department Center 12/23/2022 [id number] ROSE [facility] None No family history on file Level of Service:31770 [place] OFFICE/OUTPATIENT NEW HIGH MDM 60-74 MINUTES Reason for Visit and Comments: New Patient [542] Normal [facility] Progress Noteon 12-23-2022 Progress Note [facility] SURGERY [address] [facility] [address] Dept: [phone] Dept Loc: [phone] Visit type: New Reason for Visit: Multivessel [...] Milian. Patient was admitted on 12/18/22 to [facility] with CP. Per notes, patient has a [...] CT Abdomen (more content not included)... Normal [facility] Glucose Glucometer (BldC) [M ass/Vol]Ordered By: Edwin Kaplan on 12-19-2022 Glucose [Mass/Vol] 101 mg/dL 74-106 [facility] Comment on above: MANAGEMENT OF PATIEN T CARE PER NURSING PROTOCOL Absolute lymphocyte countOrd ered By: Turner Armendariz on 12-18-2022 Lymphocytes Auto (Unsp spec) [#/Vol] 2.22 10*3/uL 0.83-4.51 [facility] Basophil percentageOrdered B y: Turner Armendariz on 12-18-2022 Basophil percentage 144 mg/dL 74-106 [facility] Basophil percentage 141 mmol/L 136-145 [facility] Basophil percentage 4.0 mmol/L 3.5-5.1 [facility] Basophil percentage 108 mmol/L 98-107 [facility] Basophils (Bld) [#/Vol] 4.9 10*3/uL 4.4-11.0 [facility] Basophils (Bld) [#/Vol] 2.2 10*3/uL 2.0-7.7 [facility] Basophils/100 WBC (Bld) 0.4 % 0-1 [facility] Basophils/100 WBC (Bld) 43.9 % 47-70 [facility] Basophils/100 WBC (Bld) 2.4 % 0-5 [facility] Chloride [Moles/Vol] 108 mmol/L 98-107 [facility] Eosinophils/100 WBC (Bld) 2.4 % 0-5 [facility] Glucose [Mass/Vol] 144 mg/dL 74-106 [facility] Comment on above: Fasting Glucose resu lt greater than or equal to 126 mg/dL suggests DIABETES MELLITUS per A.D.A. criteria. Neutrophils (Bld) [#/Vol] 2.2 10*3/uL 2.0-7.7 [facility] Neutrophils/100 WBC (Bld) 43.9 % 47-70 [facility] Potassium [Moles/Vol] 4.0 mmol/L 3.5-5.1 [facility] Sodium [Moles/Vol] 141 mmol/L 136-145 [facility] WBC (Bld) [#/Vol] 4.9 10*3/uL 4.4-11.0 [facility] Blood erythrocytes count (nu mber/volume)Ordered By: Turner Armendariz on 12-18-2022 RBC (Bld) [#/Vol] 3.32 10*6/uL 4.2-5.4 [facility] Blood hemoglobin measurement (mass/volume)Ordered By: Turner Armendariz on 12-18-2022 Hemoglobin (Bld) [Mass/Vol] 10.8 g/dL 12.0-15.0 [facility] Blood lymphocytes/100 leukoc ytesOrdered By: Turner Armendariz on 12-18-2022 Lymphocytes/100 WBC (Bld) 45.0 % 19-41 [facility] Blood monocytes/100 leukocyt esOrdered By: Turner Armendariz on 12-18-2022 Monocytes/100 WBC (Bld) 8.1 % 0-10 [facility] Blood platelet mean volumeOr dered By: Turner Armendariz on 12-18-2022 Platelet mean volume (Bld) [Entitic vol] 10.7 fL 6.2-12.0 [facility] Determination of erythrocyte mean corpuscular volume (MCV)Ordered By: Turner Armendariz on 12-18-2022 MCV (RBC) [Entitic vol] 99.1 fL 81-99 [facility] Hematocrit Auto (Bld) [Volum e fraction]Ordered By: Turner Armendariz on 12-18-2022 Hematocrit (Bld) [Volume fraction] 32.9 % 37-47 [facility] INR in Blood by Coagulation assayOrdered By: Jossue Boyd on 12-18-2022 INR Coag (Bld) [Relative time] 1.0 {INR} [facility] Laboratory - Chemistry and C hemistry - challengeOrdered By: Turner Armendariz on 12-18-2022 CO2 [Moles/Vol] 29.0 mmol/L 21.0-32.0 [facility] Urea nitrogen/Creatinine [Mass ratio] 27.6 mg/mg 10-20 [facility] Laboratory - CoagulationOrde red By: Jossue Boyd on 12-18-2022 aPTT Coag (Bld) [Time] 27.4 s 24.1-36.2 [facility] PT Coag (PPP) [Time] 12.8 s 11.7-14.9 [facility] Laboratory - Hematology and Cell countsOrdered By: Turner Armendariz on 12-18-2022 Erythrocyte distribution width (RBC) [Entitic vol] 50.8 fL 35.1-43.9 [facility] Erythrocyte distribution width (RBC) [Ratio] 13.9 % 11.6-14.6 [facility] Immature granulocytes/100 WBC (Bld) 0.200 % 0.0-0.9 [facility] Comment on above: IG% - Immature Granu locytes (promyelocytes, myelocytes and metamyelocytes) > 1% indicates that a LEFT SHIFT is Present. MCH (RBC) [Entitic mass] 32.5 pg 27.0-32.0 [facility] Nucleated RBC/100 WBC (Bld) [Ratio] 0 % 0-5 [facility] MCHC Auto (RBC) [Mass/Vol]Or dered By: Turner Armendariz on 12-18-2022 MCHC (RBC) [Mass/Vol] 32.8 g/dL 32-36 [facility] No Panel InformationOrdered By: Edwin Kaplan on 12-18-2022 Troponin I High Sensitivity 5 pg/mL 3.0-54.0 [facility] Comment on above: Please Note: New Gina t Units and Gender Specific Reference Ranges. For more information see Policy Stat Procedure [place] High Sensitivity Troponin (TNIH) and attachments. 5 pg/mL 3.0-54.0 [facility] No Panel InformationOrdered By: Turner Armendariz on 12-18-2022 Troponin I High Sensitivity 5 pg/mL 3.0-54.0 [facility] Comment on above: Please Note: New Gina t Units and Gender Specific Reference Ranges. For more information see Policy Stat Procedure [place] High Sensitivity Troponin (TNIH) and attachments. D-Dimer Quantitative (PE/DVT) 0.31 FEU/ug/m 0.27-0.49 [facility] Comment on above: NORMAL D-Dimer level (<0.50) indicates no DVT or PE. Estimated Creatinine Clearance Calc 71.34 ml/min [facility] Estimated GFR (MDRD) Amer 79 mL/min >60 [facility] Comment on above: GFR Calc Estimated GFR (MDRD) Non-Af Amer 65 mL/min >60 [facility] Comment on above: Non- GFR Calc 32.5 pg 27.0-32.0 [facility] 13.9 % 11.6-14.6 [facility] 50.8 fl 35.1-43.9 [facility] 0.200 % 0.0-0.9 [facility] 0 % 0-5 [facility] 0.31 FEU/ug/m 0.27-0.49 [facility] 65 mL/min >60 [facility] 79 mL/min >60 [facility] 71.34 ml/min [facility] 27.6 RATIO 10-20 [facility] 29.0 mmol/L 21.0-32.0 [facility] No Panel InformationOrdered By: Jossue Boyd on 12-18-2022 12.8 SECONDS 11.7-14.9 [facility] 27.4 Seconds 24.1-36.2 [facility] Platelets bldOrdered By: Natalie Armendariz on 12-18-2022 Platelets (Bld) [#/Vol] 183 10*3/uL 150-450 [facility] Serum or plasma calcium loretta urement (mass/volume)Ordered By: Turner Quinonesdavid on 12-18-2022 Calcium [Mass/Vol] 8.5 mg/dL 8.5-10.1 [facility] Serum or plasma creatinine m easurement (mass/volume)Ordered By: Turner Quinonesdavid on 12-18-2022 Creatinine [Mass/Vol] 0.90 mg/dL 0.55-1.02 [facility] Comment on above: The validity of the calculated GFR & GFRAA in patients over 70 years has not been determined. Clinical correlation is essential. Serum or plasma urea nitroge n measurement (mass/volume)Ordered By: Turner Quinonesdavid on 12-18-2022 Urea nitrogen [Mass/Vol] 25 mg/dL 7-18 [facility] Thin prep Papanicolaou smear with manual screeningOrdered By: Turner Quinonesdavid on 12-18-2022 Thin prep Papanicolaou smear with manual screening 4 5-15 [facility] Laboratory - Hematology and Cell countson 12-11-2022 HbA1c (Bld) [Mass fraction] 6.6 % 4.2-6.3 [facility] No Panel Informationon 12-11 6.6 % 4.2-6.3 [facility] Basophil percentageOrdered B y: Dr. Garcia on 10-01-2022 Chloride [Moles/Vol] 113 mmol/L 98-107 [facility] Glucose [Mass/Vol] 114 mg/dL 74-106 [facility] Comment on above: Fasting Glucose resu lt from 100 to 125 mg/dL suggests IMPAIRED HOMEOSTASIS per A.D.A. criteria. Potassium [Moles/Vol] 3.8 mmol/L 3.5-5.1 [facility] Sodium [Moles/Vol] 144 mmol/L 136-145 [facility] Laboratory - Chemistry and C hemistry - challengeOrdered By: Dr. Garcia on 10-01-2022 CO2 [Moles/Vol] 25.0 mmol/L 21.0-32.0 [facility] Urea nitrogen/Creatinine [Mass ratio] 26.3 mg/mg 10-20 [facility] No Panel InformationOrdered By: Dr. Garcia on 10-01-2022 Estimated GFR (MDRD) Amer 92 mL/min >60 [facility] Comment on above: GFR Calc Estimated GFR (MDRD) Non-Af Amer 76 mL/min >60 [facility] Comment on above: Non- GFR Calc Valproic Acid (Depakene) Level 36 ug/mL 50-100 [facility] Serum or plasma calcium loretta urement (mass/volume)Ordered By: Dr. Garcia on 10-01-2022 Calcium [Mass/Vol] 8.6 mg/dL 8.5-10.1 [facility] Serum or plasma creatinine m easurement (mass/volume)Ordered By: Dr. Garcia on 10-01-2022 Creatinine [Mass/Vol] 0.80 mg/dL 0.55-1.02 [facility] Comment on above: The validity of the calculated GFR & GFRAA in patients over 70 years has not been determined. Clinical correlation is essential. Serum or plasma urea nitroge n measurement (mass/volume)Ordered By: Dr. Garcia on 10-01-2022 Urea nitrogen [Mass/Vol] 21 mg/dL 7-18 [facility] Thin prep Papanicolaou smear with manual screeningOrdered By: Dr. Garcia on 10-01-2022 Thin prep Papanicolaou smear with manual screening 6 5-15 [facility] Whole blood hemoglobin A1c/t otal hemoglobin ratio (mass fraction)Ordered By: Dr. Garcia on 10-01-2022 HbA1c (Bld) [Mass fraction] 7.0 % 3.8-5.6 [facility] Comment on above: Normal < 5.7 % Predi abetic 5.7 - 6.4 % Diabetic >or= 6.5 % Please note range changes. Absolute lymphocyte countOrd ered By: Dr. Freeman on 08-13-2022 Lymphocytes Auto (Unsp spec) [#/Vol] 2.73 10*3/uL 0.83-4.51 [facility] Basophil percentageOrdered B y: Dr. Freeman on 08-13-2022 Basophils/100 WBC (Bld) 0.6 % 0-1 [facility] Bilirubin [Mass/Vol] 0.20 mg/dL 0.20-1.00 [facility] Comment on above: For patients on eltr ombopag therapy, use of Dimension [place] TBIL is not recommended. Chloride [Moles/Vol] 114 mmol/L 98-107 [facility] Eosinophils/100 WBC (Bld) 2.1 % 0-5 [facility] Glucose [Mass/Vol] 143 mg/dL 74-106 [facility] Comment on above: Fasting Glucose resu lt greater than or equal to 126 mg/dL suggests DIABETES MELLITUS per A.D.A. criteria. Neutrophils (Bld) [#/Vol] 2.8 10*3/uL 2.0-7.7 [facility] Neutrophils/100 WBC (Bld) 45.6 % 47-70 [facility] Potassium [Moles/Vol] 3.7 mmol/L 3.5-5.1 [facility] Protein [Mass/Vol] 7.6 g/dL 6.4-8.2 [facility] Sodium [Moles/Vol] 140 mmol/L 136-145 [facility] WBC (Bld) [#/Vol] 6.2 10*3/uL 4.4-11.0 [facility] Blood erythrocytes count (nu mber/volume)Ordered By: Dr. Freeman on 08-13-2022 RBC (Bld) [#/Vol] 4.08 10*6/uL 4.2-5.4 [facility] Blood hemoglobin measurement (mass/volume)Ordered By: Dr. Freeman on 08-13-2022 Hemoglobin (Bld) [Mass/Vol] 12.8 g/dL 12.0-15.0 [facility] Blood lymphocytes/100 leukoc ytesOrdered By: Dr. Freeman on 08-13-2022 Lymphocytes/100 WBC (Bld) 44.1 % 19-41 [facility] Blood monocytes/100 leukocyt esOrdered By: Dr. Freeman on 08-13-2022 Monocytes/100 WBC (Bld) 7.4 % 0-10 [facility] Blood platelet mean volumeOr dered By: Dr. Freeman on 08-13-2022 Platelet mean volume (Bld) [Entitic vol] 10.6 fL 6.2-12.0 [facility] Determination of erythrocyte mean corpuscular volume (MCV)Ordered By: Dr. Freeman on 08-13-2022 MCV (RBC) [Entitic vol] 99.3 fL 81-99 [facility] Hematocrit Auto (Bld) [Volum e fraction]Ordered By: Dr. Freeman on 08-13-2022 Hematocrit (Bld) [Volume fraction] 40.5 % 37-47 [facility] Laboratory - Chemistry and C hemistry - challengeOrdered By: Dr. Freeman on 08-13-2022 ALP [Catalytic activity/Vol] 103 U/L 45-117 [facility] ALT [Catalytic activity/Vol] 32 U/L 13-56 [facility] CO2 [Moles/Vol] 22.0 mmol/L 21.0-32.0 [facility] Globulin (S) [Mass/Vol] 4.0 g/dL 2.2-4.2 [facility] Urea nitrogen/Creatinine [Mass ratio] 18.8 mg/mg 10-20 [facility] Laboratory - Hematology and Cell countsOrdered By: Dr. Freeman on 08-13-2022 Erythrocyte distribution width (RBC) [Entitic vol] 49.6 fL 35.1-43.9 [facility] Erythrocyte distribution width (RBC) [Ratio] 13.5 % 11.6-14.6 [facility] Immature granulocytes/100 WBC (Bld) 0.200 % 0.0-0.9 [facility] Comment on above: IG% - Immature Granu locytes (promyelocytes, myelocytes and metamyelocytes) > 1% indicates that a LEFT SHIFT is Present. MCH (RBC) [Entitic mass] 31.4 pg 27.0-32.0 [facility] Nucleated RBC/100 WBC (Bld) [Ratio] 0 % 0-5 [facility] MCHC Auto (RBC) [Mass/Vol]Or dered By: Dr. Freeman on 08-13-2022 MCHC (RBC) [Mass/Vol] 31.6 g/dL 32-36 [facility] No Panel InformationOrdered By: Dr. Freeman on 08-13-2022 Estimated Creatinine Clearance Calc 41.58 ml/min [facility] Estimated GFR (MDRD) Amer 70 mL/min >60 [facility] Comment on above: GFR Calc Estimated GFR (MDRD) Non-Af Amer 58 mL/min >60 [facility] Comment on above: Non- GFR Calc Valproic Acid (Depakene) Level 38 ug/mL 50-100 [facility] Platelets bldOrdered By: Dr. Freeman on 08-13-2022 Platelets (Bld) [#/Vol] 207 10*3/uL 150-450 [facility] Serum or plasma albumin loretta urement (mass/volume)Ordered By: Dr. Freeman on 08-13-2022 Albumin [Mass/Vol] 3.6 g/dL 3.2-5.0 [facility] Serum or plasma albumin/glob ulin mass ratioOrdered By: Dr. Freeman on 08-13-2022 Albumin/Globulin [Mass ratio] 0.9 {ratio} 0.9-2.4 [facility] Serum or plasma calcium loretta urement (mass/volume)Ordered By: Dr. Freeman on 08-13-2022 Calcium [Mass/Vol] 8.5 mg/dL 8.5-10.1 [facility] Serum or plasma creatinine m easurement (mass/volume)Ordered By: Dr. Freeman on 08-13-2022 Creatinine [Mass/Vol] 1.01 mg/dL 0.55-1.02 [facility] Comment on above: The validity of the calculated GFR & GFRAA in patients over 70 years has not been determined. Clinical correlation is essential. Serum or plasma urea nitroge n measurement (mass/volume)Ordered By: Dr. Freeman on 08-13-2022 Urea nitrogen [Mass/Vol] 19 mg/dL 7-18 [facility] Thin prep Papanicolaou smear with manual screeningOrdered By: Dr. Freeman on 08-13-2022 Thin prep Papanicolaou smear with manual screening 28 U/L 15-37 [facility] Thin prep Papanicolaou smear with manual screening 4 5-15 [facility] Laboratory - Hematology and Cell countson 06-30-2022 HbA1c (Bld) [Mass fraction] 6.8 % 4.2-6.3 [facility] Culture, urineOrdered By: Dr Yoko Chan on 06-07-2022 Bacteria identified Cx Nom (U) Mixed Gram Pos & Gram Neg Org [facility] Absolute lymphocyte countOrd ered By: Dr. Chan on 06-06-2022 Lymphocytes Auto (Unsp spec) [#/Vol] 1.11 10*3/uL 0.83-4.51 [facility] Basophil percentageOrdered B y: Dr. Chan on 06-06-2022 Basophil percentage 0 SEEN /hpf 0-5 [facility] Basophils/100 WBC (Bld) 0.4 % 0-1 [facility] Bilirubin [Mass/Vol] 0.30 mg/dL 0.20-1.00 [facility] Comment on above: For patients on eltr ombopag therapy, use of Dimension [place] TBIL is not recommended. Chloride [Moles/Vol] 107 mmol/L 98-107 [facility] Eosinophils/100 WBC (Bld) 1.5 % 0-5 [facility] Glucose [Mass/Vol] 117 mg/dL 74-106 [facility] Comment on above: Fasting Glucose resu lt from 100 to 125 mg/dL suggests IMPAIRED HOMEOSTASIS per A.D.A. criteria. Neutrophils (Bld) [#/Vol] 4.0 10*3/uL 2.0-7.7 [facility] Neutrophils/100 WBC (Bld) 72.8 % 47-70 [facility] Potassium [Moles/Vol] 4.2 mmol/L 3.5-5.1 [facility] Protein [Mass/Vol] 7.9 g/dL 6.4-8.2 [facility] Sodium [Moles/Vol] 142 mmol/L 136-145 [facility] WBC (Bld) [#/Vol] 5.4 10*3/uL 4.4-11.0 [facility] Bilirubin Test strip Ql (U)O rdered By: Dr. Chan on 06-06-2022 Bilirubin Ql (U) Negative Negative [facility] Blood erythrocytes count (nu mber/volume)Ordered By: Dr. Chan on 06-06-2022 RBC (Bld) [#/Vol] 3.83 10*6/uL 4.2-5.4 [facility] Blood hemoglobin measurement (mass/volume)Ordered By: Dr. Chan on 06-06-2022 Hemoglobin (Bld) [Mass/Vol] 11.9 g/dL 12.0-15.0 [facility] Blood lymphocytes/100 leukoc ytesOrdered By: Dr. Chan on 06-06-2022 Lymphocytes/100 WBC (Bld) 20.4 % 19-41 [facility] Blood monocytes/100 leukocyt esOrdered By: Dr. Chan on 06-06-2022 Monocytes/100 WBC (Bld) 4.0 % 0-10 [facility] Blood platelet mean volumeOr dered By: Dr. Chan on 06-06-2022 Platelet mean volume (Bld) [Entitic vol] 10.1 fL 6.2-12.0 [facility] Determination of erythrocyte mean corpuscular volume (MCV)Ordered By: Dr. Chan on 06-06-2022 MCV (RBC) [Entitic vol] 96.6 fL 81-99 [facility] Hematocrit Auto (Bld) [Volum e fraction]Ordered By: Dr. Chan on 06-06-2022 Hematocrit (Bld) [Volume fraction] 37.0 % 37-47 [facility] Ketones Test strip Ql (U)Ord ered By: Dr. Chan on 06-06-2022 Ketones Ql (U) 15 mg/dl Negative [facility] Laboratory - Chemistry and C hemistry - challengeOrdered By: Dr. Chan on 06-06-2022 ALP [Catalytic activity/Vol] 88 U/L 45-117 [facility] ALT [Catalytic activity/Vol] 28 U/L 13-56 [facility] CO2 [Moles/Vol] 26.0 mmol/L 21.0-32.0 [facility] Globulin (S) [Mass/Vol] 4.4 g/dL 2.2-4.2 [facility] Urea nitrogen/Creatinine [Mass ratio] 29.2 mg/mg 10-20 [facility] Laboratory - Hematology and Cell countsOrdered By: Dr. Chan on 06-06-2022 Erythrocyte distribution width (RBC) [Entitic vol] 48.0 fL 35.1-43.9 [facility] Erythrocyte distribution width (RBC) [Ratio] 13.3 % 11.6-14.6 [facility] Immature granulocytes/100 WBC (Bld) 0.900 % 0.0-0.9 [facility] Comment on above: IG% - Immature Granu locytes (promyelocytes, myelocytes and metamyelocytes) > 1% indicates that a LEFT SHIFT is Present. MCH (RBC) [Entitic mass] 31.1 pg 27.0-32.0 [facility] Nucleated RBC/100 WBC (Bld) [Ratio] 0 % 0-5 [facility] MCHC Auto (RBC) [Mass/Vol]Or dered By: Dr. Chan on 06-06-2022 MCHC (RBC) [Mass/Vol] 32.2 g/dL 32-36 [facility] Mucus LM Ql (Urine sed)Order ed By: Dr. Chan on 06-06-2022 Mucus Ql (Urine sed) 0 SEEN /hpf [facility] Nitrite Test strip Ql (U)Ord ered By: Dr. Chan on 06-06-2022 Nitrite Ql (U) Negative Negative [facility] No Panel InformationOrdered By: Dr. Chan on 06-06-2022 Troponin I High Sensitivity 14 pg/mL 3.0-54.0 [facility] Comment on above: Please Note: New Gina t Units and Gender Specific Reference Ranges. For more information see Policy Stat Procedure [place] High Sensitivity Troponin (TNIH) and attachments. Estimated Creatinine Clearance Calc 39.62 ml/min [facility] Estimated GFR (MDRD) Amer 66 mL/min >60 [facility] Comment on above: GFR Calc Estimated GFR (MDRD) Non-Af Amer 55 mL/min >60 [facility] Comment on above: Non- GFR Calc Valproic Acid (Depakene) Level 62 ug/mL 50-100 [facility] Platelets bldOrdered By: Dr. Chan on 06-06-2022 Platelets (Bld) [#/Vol] 248 10*3/uL 150-450 [facility] Protein Test strip Ql (U)Ord ered By: Dr. Chan on 06-06-2022 Protein Ql (U) 15 mg/dl Negative [facility] Serum or plasma albumin loretta urement (mass/volume)Ordered By: Dr. Chan on 06-06-2022 Albumin [Mass/Vol] 3.5 g/dL 3.2-5.0 [facility] Serum or plasma albumin/glob ulin mass ratioOrdered By: Dr. Chan on 06-06-2022 Albumin/Globulin [Mass ratio] 0.8 {ratio} 0.9-2.4 [facility] Serum or plasma calcium loretta urement (mass/volume)Ordered By: Dr. Chan on 06-06-2022 Calcium [Mass/Vol] 9.1 mg/dL 8.5-10.1 [facility] Serum or plasma creatinine m easurement (mass/volume)Ordered By: Dr. Chan on 06-06-2022 Creatinine [Mass/Vol] 1.06 mg/dL 0.55-1.02 [facility] Comment on above: The validity of the calculated GFR & GFRAA in patients over 70 years has not been determined. Clinical correlation is essential. Serum or plasma urea nitroge n measurement (mass/volume)Ordered By: Dr. Chan on 06-06-2022 Urea nitrogen [Mass/Vol] 31 mg/dL 7-18 [facility] Squamous epithelial cells de tection in urine sediment by light microscopyOrdered By: Dr. Chan on 06-06-2022 Epithelial cells.squamous LM Ql (Urine sed) 0-5 SEEN /hpf 5-10 [facility] Thin prep Papanicolaou smear with manual screeningOrdered By: Dr. Chan on 06-06-2022 Thin prep Papanicolaou smear with manual screening 16 U/L 15-37 [facility] Thin prep Papanicolaou smear with manual screening 9 5-15 [facility] Urine blood detectionOrdered By: Dr. Chan on 06-06-2022 RBC Ql (U) Negative Negative [facility] RBC Ql (U) 0 SEEN /hpf 0-5 [facility] Urine clarityOrdered By: Dr. Chan on 06-06-2022 Clarity (U) Clear Clear [facility] Urine color determinationOrd ered By: Dr. Chan on 06-06-2022 Color (U) Yellow Yellow [facility] Urine glucose detectionOrder ed By: Dr. Chan on 06-06-2022 Glucose Ql (U) Normal mg/dl Normal [facility] Urine leukocyte esterase det ection by dipstickOrdered By: Dr. Chan on 06-06-2022 Leukocyte esterase Test strip Ql (U) 100 /ul Negative [facility] Urine pHOrdered By: Dr. Giron 06-06-2022 pH (U) 6.0 [pH] 5.0 - 8.0 [facility] Urine sediment bacteria coun t by microscopy (number/high power field)Ordered By: Dr. Chan on 06-06-2022 Bacteria LM.HPF (Urine sed) [#/Area] 0 /[HPF] None Seen [facility] Urine specific gravity measu rementOrdered By: Dr. Chan on 06-06-2022 Specific gravity (U) [Rel density] 1.020 1.002-1.030 [facility] Urobilinogen Auto test strip Ql (U)Ordered By: Dr. Chan on 06-06-2022 Urobilinogen Ql (U) Normal mg/dl Normal [facility] Laboratory - Microbiology an d Antimicrobial susceptibilityOrdered By: Dr. Garcia on 05-06-2022 SARS-CoV-2 (COVID-19) RNA GERONIMO+probe Ql (Unsp spec) Not detected Not Detect [facility] Comment on above: Normal Reference Ran ge: Not DetectedMethod:(RT-PCR) real-time reverse transcriptase PCRLuminex ELIZABETH Instrument*The Food and Drug Administration (FDA) has issued an Emergency Use Authorization (EAU) for the ELIZABETH SARS-CoV-2 Assay for the rapid detection of [...] Auto (Unsp spec) [#/Vol] 1.49 10*3/uL 0.83-4.51 [facility] Basophil percentageOrdered B y: Dr. Garcia on 03-14-2022 Basophil percentage 0 SEEN /hpf 0-5 [facility] Basophils/100 WBC (Bld) 0.3 % 0-1 [facility] Bilirubin [Mass/Vol] 0.30 mg/dL 0.20-1.00 [facility] Comment on above: For patients on eltr ombopag therapy, use of Dimension [place] TBIL is not recommended. Chloride [Moles/Vol] 108 mmol/L 98-107 [facility] Eosinophils/100 WBC (Bld) 1.5 % 0-5 [facility] Glucose [Mass/Vol] 125 mg/dL 74-106 [facility] Comment on above: Fasting Glucose resu lt from 100 to 125 mg/dL suggests IMPAIRED HOMEOSTASIS per A.D.A. criteria. Lactate [Moles/Vol] 3.2 mmol/L 0.4-2.0 [facility] Comment on above: Critical Result(s) C alled at: 18:20:28 03/14/2022 by: tommy PHILLIPS RN ED. Results read back by same. Neutrophils (Bld) [#/Vol] 4.0 10*3/uL 2.0-7.7 [facility] Neutrophils/100 WBC (Bld) 66.8 % 47-70 [facility] Potassium [Moles/Vol] 4.1 mmol/L 3.5-5.1 [facility] Protein [Mass/Vol] 7.5 g/dL 6.4-8.2 [facility] Sodium [Moles/Vol] 141 mmol/L 136-145 [facility] WBC (Bld) [#/Vol] 6.0 10*3/uL 4.4-11.0 [facility] Bilirubin Test strip Ql (U)O rdered By: Dr. Garcia on 03-14-2022 Bilirubin Ql (U) Negative Negative [facility] Blood erythrocytes count (nu mber/volume)Ordered By: Dr. Garcia on 03-14-2022 RBC (Bld) [#/Vol] 3.71 10*6/uL 4.2-5.4 [facility] Blood hemoglobin measurement (mass/volume)Ordered By: Dr. Garcia on 03-14-2022 Hemoglobin (Bld) [Mass/Vol] 11.6 g/dL 12.0-15.0 [facility] Blood lymphocytes/100 leukoc ytesOrdered By: Dr. Garcia on 03-14-2022 Lymphocytes/100 WBC (Bld) 24.8 % 19-41 [facility] Blood monocytes/100 leukocyt esOrdered By: Dr. Garcia on 03-14-2022 Monocytes/100 WBC (Bld) 6.3 % 0-10 [facility] Blood platelet mean volumeOr dered By: Dr. Garcia on 03-14-2022 Platelet mean volume (Bld) [Entitic vol] 9.9 fL 6.2-12.0 [facility] Determination of erythrocyte mean corpuscular volume (MCV)Ordered By: Dr. Garcia on 03-14-2022 MCV (RBC) [Entitic vol] 96.2 fL 81-99 [facility] Hematocrit Auto (Bld) [Volum e fraction]Ordered By: Dr. Garcia on 03-14-2022 Hematocrit (Bld) [Volume fraction] 35.7 % 37-47 [facility] Ketones Test strip Ql (U)Ord ered By: Dr. Garcia on 03-14-2022 Ketones Ql (U) 15 mg/dl Negative [facility] Laboratory - Chemistry and C hemistry - challengeOrdered By: Dr. Garcia on 03-14-2022 ALP [Catalytic activity/Vol] 84 U/L 45-117 [facility] ALT [Catalytic activity/Vol] 32 U/L 13-56 [facility] CO2 [Moles/Vol] 25.0 mmol/L 21.0-32.0 [facility] Globulin (S) [Mass/Vol] 4.2 g/dL 2.2-4.2 [facility] Urea nitrogen/Creatinine [Mass ratio] 22.6 mg/mg 10-20 [facility] Laboratory - Hematology and Cell countsOrdered By: Dr. Garcia on 03-14-2022 Erythrocyte distribution width (RBC) [Entitic vol] 47.1 fL 35.1-43.9 [facility] Erythrocyte distribution width (RBC) [Ratio] 13.2 % 11.6-14.6 [facility] Immature granulocytes/100 WBC (Bld) 0.300 % 0.0-0.9 [facility] Comment on above: IG% - Immature Granu locytes (promyelocytes, myelocytes and metamyelocytes) > 1% indicates that a LEFT SHIFT is Present. MCH (RBC) [Entitic mass] 31.3 pg 27.0-32.0 [facility] Nucleated RBC/100 WBC (Bld) [Ratio] 0 % 0-5 [facility] MCHC Auto (RBC) [Mass/Vol]Or dered By: Dr. Garcia on 03-14-2022 MCHC (RBC) [Mass/Vol] 32.5 g/dL 32-36 [facility] Mucus LM Ql (Urine sed)Order ed By: Dr. Garcia on 03-14-2022 Mucus Ql (Urine sed) 0 SEEN /hpf [facility] Nitrite Test strip Ql (U)Ord ered By: Dr. Garcia on 03-14-2022 Nitrite Ql (U) Negative Negative [facility] No Panel InformationOrdered By: Dr. Garcia on 03-14-2022 Estimated Creatinine Clearance Calc 45.15 ml/min [facility] Estimated GFR (MDRD) Amer 77 mL/min >60 [facility] Comment on above: GFR Calc Estimated GFR (MDRD) Non-Af Amer 64 mL/min >60 [facility] Comment on above: Non- GFR Calc Troponin I High Sensitivity 18 pg/mL 3.0-54.0 [facility] Comment on above: Please Note: New Gina t Units and Gender Specific Reference Ranges. For more information see Policy Stat Procedure [place] High Sensitivity Troponin (TNIH) and attachments. Valproic Acid (Depakene) Level 42 ug/mL 50-100 [facility] Platelets bldOrdered By: Dr. Garcia on 03-14-2022 Platelets (Bld) [#/Vol] 233 10*3/uL 150-450 [facility] Protein Test strip Ql (U)Ord ered By: Dr. Garcia on 03-14-2022 Protein Ql (U) 15 mg/dl Negative [facility] Serum or plasma albumin loretta urement (mass/volume)Ordered By: Dr. Garcia on 03-14-2022 Albumin [Mass/Vol] 3.3 g/dL 3.2-5.0 [facility] Serum or plasma albumin/glob ulin mass ratioOrdered By: Dr. Garcia on 03-14-2022 Albumin/Globulin [Mass ratio] 0.8 {ratio} 0.9-2.4 [facility] Serum or plasma calcium loretta urement (mass/volume)Ordered By: Dr. Garcia on 03-14-2022 Calcium [Mass/Vol] 9.2 mg/dL 8.5-10.1 [facility] Serum or plasma creatinine m easurement (mass/volume)Ordered By: Dr. Garcia on 03-14-2022 Creatinine [Mass/Vol] 0.93 mg/dL 0.55-1.02 [facility] Comment on above: The validity of the calculated GFR & GFRAA in patients over 70 years has not been determined. Clinical correlation is essential. Serum or plasma urea nitroge n measurement (mass/volume)Ordered By: Dr. Garcia on 03-14-2022 Urea nitrogen [Mass/Vol] 21 mg/dL 7-18 [facility] Squamous epithelial cells de tection in urine sediment by light microscopyOrdered By: Dr. Garcia on 03-14-2022 Epithelial cells.squamous LM Ql (Urine sed) 0-5 SEEN /hpf 5-10 [facility] Thin prep Papanicolaou smear with manual screeningOrdered By: Dr. Garcia on 03-14-2022 Thin prep Papanicolaou smear with manual screening 21 U/L 15-37 [facility] Thin prep Papanicolaou smear with manual screening 8 5-15 [facility] Urine blood detectionOrdered By: Dr. Garcia on 03-14-2022 RBC Ql (U) Negative Negative [facility] RBC Ql (U) 0 SEEN /hpf 0-5 [facility] Urine clarityOrdered By: Dr. Garcia on 03-14-2022 Clarity (U) Clear Clear [facility] Urine color determinationOrd ered By: Dr. Garcia on 03-14-2022 Color (U) Yellow Yellow [facility] Urine glucose detectionOrder ed By: Dr. Garcia on 03-14-2022 Glucose Ql (U) Normal mg/dl Normal [facility] Urine leukocyte esterase det ection by dipstickOrdered By: Dr. Garcia on 03-14-2022 Leukocyte esterase Test strip Ql (U) Negative Negative [facility] Urine pHOrdered By: Dr. Jonathan ryan on 03-14-2022 pH (U) 7.0 [pH] 5.0 - 8.0 [facility] Urine sediment bacteria coun t by microscopy (number/high power field)Ordered By: Dr. Garcia on 03-14-2022 Bacteria LM.HPF (Urine sed) [#/Area] 0 /[HPF] None Seen [facility] Urine specific gravity measu rementOrdered By: Dr. Garcia on 03-14-2022 Specific gravity (U) [Rel density] 1.015 1.002-1.030 [facility] Urobilinogen Auto test strip Ql (U)Ordered By: Dr. Garcia on 03-14-2022 Urobilinogen Ql (U) Normal mg/dl Normal [facility] Absolute lymphocyte counton 01-10-2022 Lymphocytes Auto (Unsp spec) [#/Vol] 1.45 10*3/uL 0.83-4.51 [facility] Work Phone: Basophil percentageon 2021 Basophils/100 WBC (Bld) 0.3 % 0-1 [facility] Work Phone: Bilirubin [Mass/Vol] 0.50 mg/dL 0.20-1.00 [facility] Work Phone: Comment on above: For patients on eltr ombopag therapy, use of Dimension [place] TBIL is not recommended. Chloride [Moles/Vol] 106 mmol/L 98-107 [facility] Work Phone: Cholesterol [Mass/Vol] 195 mg/dL <200 [facility] Work Phone: Comment on above: <200 mg/dL Desirable 200-240 mg/dL Borderline >240 mg/dL High Risk Eosinophils/100 WBC (Bld) 2.9 % 0-5 [facility] Work Phone: Glucose [Mass/Vol] 124 mg/dL 74-106 [facility] Work Phone: Comment on above: Fasting Glucose resu lt from 100 to 125 mg/dL suggests IMPAIRED HOMEOSTASIS per A.D.A. criteria. Neutrophils (Bld) [#/Vol] 2.0 10*3/uL 2.0-7.7 [facility] Work Phone: Neutrophils/100 WBC (Bld) 52.1 % 47-70 [facility] Work Phone: Potassium [Moles/Vol] 4.1 mmol/L 3.5-5.1 [facility] Work Phone: Protein [Mass/Vol] 7.8 g/dL 6.4-8.2 [facility] Work Phone: Sodium [Moles/Vol] 141 mmol/L 136-145 [facility] Work Phone: Triglyceride [Mass/Vol] 92 mg/dL <199 [facility] Work Phone: Comment on above: The drugs N-Acetylcy steine and Metamizole may falsely depress this assay.Serum Triglycerides Reference Interval Normal <150 mg/dL Borderline high 150 - 199 mg/dL High 200 - 499 mg/dL Very High > or = 500 mg/dL WBC (Bld) [#/Vol] 3.8 10*3/uL 4.4-11.0 [facility] Work Phone: Blood erythrocytes count (nu mber/volume)on 01-10-2022 RBC (Bld) [#/Vol] 3.90 10*6/uL 4.2-5.4 [facility] Work Phone: Blood hemoglobin measurement (mass/volume)on 01-10-2022 Hemoglobin (Bld) [Mass/Vol] 12.5 g/dL 12.0-15.0 [facility] Work Phone: Blood lymphocytes/100 leukoc yteson 01-10-2022 Lymphocytes/100 WBC (Bld) 37.9 % 19-41 [facility] Work Phone: Blood monocytes/100 leukocyt eson 01-10-2022 Monocytes/100 WBC (Bld) 6.5 % 0-10 [facility] Work Phone: Blood platelet mean volumeon 01-10-2022 Platelet mean volume (Bld) [Entitic vol] 11.1 fL 6.2-12.0 [facility] Work Phone: Determination of erythrocyte mean corpuscular volume (MCV)on 01-10-2022 MCV (RBC) [Entitic vol] 96.4 fL 81-99 [facility] Work Phone: Hematocrit Auto (Bld) [Volum e fraction]on 01-10-2022 Hematocrit (Bld) [Volume fraction] 37.6 % 37-47 [facility] Work Phone: Laboratory - Chemistry and C hemistry - challengeon 01-10-2022 ALP [Catalytic activity/Vol] 87 U/L 45-117 [facility] Work Phone: ALT [Catalytic activity/Vol] 28 U/L 13-56 [facility] Work Phone: CO2 [Moles/Vol] 29.0 mmol/L 21.0-32.0 [facility] Work Phone: Globulin (S) [Mass/Vol] 4.2 g/dL 2.2-4.2 [facility] Work Phone: Urea nitrogen/Creatinine [Mass ratio] 22.6 mg/mg 10-20 [facility] Work Phone: Laboratory - Hematology and Cell countson 01-10-2022 Erythrocyte distribution width (RBC) [Entitic vol] 48.9 fL 35.1-43.9 [facility] Work Phone: Erythrocyte distribution width (RBC) [Ratio] 13.7 % 11.6-14.6 [facility] Work Phone: Immature granulocytes/100 WBC (Bld) 0.300 % 0.0-0.9 [facility] Work Phone: Comment on above: IG% - Immature Granu locytes (promyelocytes, myelocytes and metamyelocytes) > 1% indicates that a LEFT SHIFT is Present. MCH (RBC) [Entitic mass] 32.1 pg 27.0-32.0 [facility] Work Phone: Nucleated RBC/100 WBC (Bld) [Ratio] 0 % 0-5 [facility] Work Phone: MCHC Auto (RBC) [Mass/Vol]on 01-10-2022 MCHC (RBC) [Mass/Vol] 33.2 g/dL 32-36 [facility] Work Phone: No Panel Informationon 01-10 Estimated GFR (MDRD) Amer 77 mL/min >60 [facility] Work Phone: Comment on above: GFR Calc Estimated GFR (MDRD) Non-Af Amer 64 mL/min >60 [facility] Work Phone: Comment on above: Non- GFR Calc Urine Microalbumin/Creatinine Ratio 7.3 mg/g CRE <30 [facility] Work Phone: Platelets bldon 01-10-2022 Platelets (Bld) [#/Vol] 210 10*3/uL 150-450 [facility] Work Phone: Serum or plasma albumin loretta urement (mass/volume)on 01-10-2022 Albumin [Mass/Vol] 3.6 g/dL 3.2-5.0 [facility] Work Phone: Serum or plasma albumin/glob ulin mass ratioon 01-10-2022 Albumin/Globulin [Mass ratio] 0.9 {ratio} 0.9-2.4 [facility] Work Phone: Serum or plasma calcium loretta urement (mass/volume)on 01-10-2022 Calcium [Mass/Vol] 9.6 mg/dL 8.5-10.1 [facility] Work Phone: Serum or plasma cholesterol in HDL measurement (mass/volume)on 01-10-2022 Cholesterol in HDL [Mass/Vol] 53 mg/dL >40 [facility] Work Phone: Comment on above: The drugs N-Acetylcy steine and Metamizole may falsely depress this assay. Reference Range HDL <40 mg/dL Low HDL Cholesterol HDL >or= 60 mg/dL High HDL Cholesterol Serum or plasma cholesterol in VLDL measurement (mass/volume)on 01-10-2022 Cholesterol in VLDL [Mass/Vol] 18 mg/dL 5-40 [facility] Work Phone: Serum or plasma creatinine m easurement (mass/volume)on 01-10-2022 Creatinine [Mass/Vol] 0.93 mg/dL 0.55-1.02 [facility] Work Phone: Comment on above: The validity of the calculated GFR & GFRAA in patients over 70 years has not been determined. Clinical correlation is essential. Serum or plasma low density lipoprotein (LDL) cholesterol measurement (mass/volume)on 01-10-2022 Cholesterol in LDL [Mass/Vol] 124 mg/dL 0-130 [facility] Work Phone: Serum or plasma urea nitroge n measurement (mass/volume)on 01-10-2022 Urea nitrogen [Mass/Vol] 21 mg/dL 7-18 [facility] Work Phone: Thin prep Papanicolaou smear with manual screeningon 01-10-2022 Thin prep Papanicolaou smear with manual screening 17 U/L 15-37 [facility] Work Phone: Thin prep Papanicolaou smear with manual screening 6 5-15 [facility] Work Phone: Thin prep Papanicolaou smear with manual screening 22.4 mg/L NO RANGE EST. [facility] Work Phone: Urine creatinine measurement (mass/volume)on 01-10-2022 Creatinine (U) [Mass/Vol] 308.00 mg/dL NO RANGE EST. [facility] Work Phone: Whole blood hemoglobin A1c/t otal hemoglobin ratio (mass fraction)on 01-10-2022 HbA1c (Bld) [Mass fraction] 7.3 % 3.8-5.6 [facility] Work Phone: Comment on above: Normal < 5.7 % Predi abetic 5.7 - 6.4 % Diabetic >or= 6.5 % Please note range changes. Absolute lymphocyte counton 01-03-2022 Lymphocytes Auto (Unsp spec) [#/Vol] 2.28 10*3/uL 0.83-4.51 [facility] Work Phone: Basophil percentageon 2021 Basophils/100 WBC (Bld) 0.6 % 0-1 [facility] Work Phone: Bilirubin [Mass/Vol] 0.20 mg/dL 0.20-1.00 [facility] Work Phone: Comment on above: For patients on eltr ombopag therapy, use of Dimension [place] TBIL is not recommended. Chloride [Moles/Vol] 110 mmol/L 98-107 [facility] Work Phone: [phone] Eosinophils/100 WBC (Bld) 3.1 % 0-5 [facility] Work Phone: [phone] Glucose [Mass/Vol] 154 mg/dL 74-106 [facility] Work Phone: [phone] Comment on above: Fasting Glucose resu lt greater than or equal to 126 mg/dL suggests DIABETES MELLITUS per A.D.A. criteria. Neutrophils (Bld) [#/Vol] 2.2 10*3/uL 2.0-7.7 [facility] Work Phone: Neutrophils/100 WBC (Bld) 44.8 % 47-70 [facility] Work Phone: Potassium [Moles/Vol] 3.8 mmol/L 3.5-5.1 [facility] Work [facility]: Protein [Mass/Vol] 6.0 g/dL 6.4-8.2 [facility] Work Phone: Sodium [Moles/Vol] 141 mmol/L 136-145 [facility] Work Phone: WBC (Bld) [#/Vol] 4.9 10*3/uL 4.4-11.0 [facility] Work Phone: Blood erythrocytes count (nu mber/volume)on 01-03-2022 RBC (Bld) [#/Vol] 3.20 10*6/uL 4.2-5.4 [facility] Work Phone: Blood hemoglobin measurement (mass/volume)on 01-03-2022 Hemoglobin (Bld) [Mass/Vol] 10.1 g/dL 12.0-15.0 [facility] Work Phone: Blood lymphocytes/100 leukoc yteson 01-03-2022 Lymphocytes/100 WBC (Bld) 46.4 % 19-41 [facility] Work Phone: Blood monocytes/100 leukocyt eson 01-03-2022 Monocytes/100 WBC (Bld) 4.9 % 0-10 [facility] Work Phone: Blood platelet mean volumeon 01-03-2022 Platelet mean volume (Bld) [Entitic vol] 10.8 fL 6.2-12.0 [facility] Work Phone: Determination of erythrocyte mean corpuscular volume (MCV)on 01-03-2022 MCV (RBC) [Entitic vol] 97.2 fL 81-99 [facility] Work Phone: Glucose Glucometer (BldC) [M ass/Vol]on 01-03-2022 Glucose [Mass/Vol] 107 mg/dL 74-106 [facility] Work Phone: Comment on above: MANAGEMENT OF PATIEN T CARE PER NURSING PROTOCOL Hematocrit Auto (Bld) [Volum e fraction]on 01-03-2022 Hematocrit (Bld) [Volume fraction] 31.1 % 37-47 [facility] Work Phone: Laboratory - Chemistry and C hemistry - challengeon 01-03-2022 ALP [Catalytic activity/Vol] 83 U/L 45-117 [facility] Work Phone: ALT [Catalytic activity/Vol] 23 U/L 13-56 [facility] Work Phone: CO2 [Moles/Vol] 26.0 mmol/L 21.0-32.0 [facility] Work Phone: Globulin (S) [Mass/Vol] 3.4 g/dL 2.2-4.2 [facility] Work Phone: Urea nitrogen/Creatinine [Mass ratio] 22.9 mg/mg 10-20 [facility] Work Phone: Laboratory - Hematology and Cell countson 01-03-2022 Erythrocyte distribution width (RBC) [Entitic vol] 48.3 fL 35.1-43.9 [facility] Work Phone: Erythrocyte distribution width (RBC) [Ratio] 13.4 % 11.6-14.6 [facility] Work Phone: Immature granulocytes/100 WBC (Bld) 0.200 % 0.0-0.9 [facility] Work Phone: Comment on above: IG% - Immature Granu locytes (promyelocytes, myelocytes and metamyelocytes) > 1% indicates that a LEFT SHIFT is Present. MCH (RBC) [Entitic mass] 31.6 pg 27.0-32.0 [facility] Work Phone: Nucleated RBC/100 WBC (Bld) [Ratio] 0 % 0-5 [facility] Work Phone: MCHC Auto (RBC) [Mass/Vol]on 01-03-2022 MCHC (RBC) [Mass/Vol] 32.5 g/dL 32-36 [facility] Work Phone: No Panel Informationon 01-03 Estimated Creatinine Clearance Calc 50.59 ml/min [facility] Work Phone: Estimated GFR (MDRD) Amer 88 mL/min >60 [facility] Work Phone: Comment on above: GFR Calc Estimated GFR (MDRD) Non-Af Amer 73 mL/min >60 [facility] Work Phone: Comment on above: Non- GFR Calc Platelets bldon 01-03-2022 Platelets (Bld) [#/Vol] 181 10*3/uL 150-450 [facility] Work Phone: Serum or plasma albumin loretta urement (mass/volume)on 01-03-2022 Albumin [Mass/Vol] 2.6 g/dL 3.2-5.0 [facility] Work Phone: Serum or plasma albumin/glob ulin mass ratioon 01-03-2022 Albumin/Globulin [Mass ratio] 0.8 {ratio} 0.9-2.4 [facility] Work Phone: Serum or plasma calcium loretta urement (mass/volume)on 01-03-2022 Calcium [Mass/Vol] 8.0 mg/dL 8.5-10.1 [facility] Work Phone: Serum or plasma creatinine m easurement (mass/volume)on 01-03-2022 Creatinine [Mass/Vol] 0.83 mg/dL 0.55-1.02 [facility] Work Phone: Comment on above: The validity of the calculated GFR & GFRAA in patients over 70 years has not been determined. Clinical correlation is essential. Serum or plasma urea nitroge n measurement (mass/volume)on 01-03-2022 Urea nitrogen [Mass/Vol] 19 mg/dL 7-18 [facility] Work Phone: Thin prep Papanicolaou smear with manual screeningon 01-03-2022 Thin prep Papanicolaou smear with manual screening 15 U/L 15-37 [facility] Work Phone: Thin prep Papanicolaou smear with manual screening 5 5-15 [facility] Work Phone: No Panel Informationon 01-02 Troponin I High Sensitivity 5 pg/mL 3.0-54.0 [facility] Work Phone: Comment on above: Please Note: New Gina t Units and Gender Specific Reference Ranges. For more information see Policy Stat Procedure [place] High Sensitivity Troponin (TNIH) and attachments. D-Dimer Quantitative (PE/DVT) 0.57 FEU/ug/m 0.27-0.49 [facility] Work Phone: Comment on above: D-Dimer ELEVATED (>0 .49): Additional studies and clinicalassessments are indicated to conclude diagnosis of:Deep Vein Thrombosis (DVT) or Pulmonary Embolism (PE)CRITICAL VALUE VERIFIED. CALLED TO NIDIA COLLINS (ER)01/02/22 0839 Mynor James.RESULTS READ BACK BY SAME. Basophil percentageon 2021 Basophil percentage 0-5 SEEN /hpf 0-5 [facility] Work Phone: Bilirubin Test strip Ql (U)o n 12-17-2021 Bilirubin Ql (U) Negative Negative [facility] Work Phone: Ketones Test strip Ql (U)on 12-17-2021 Ketones Ql (U) Negative Negative [facility] Work Phone: Mucus LM Ql (Urine sed)on Mucus Ql (Urine sed) RARE /hpf [facility] Work Phone: Nitrite Test strip Ql (U)on 12-17-2021 Nitrite Ql (U) Negative Negative [facility] Work Phone: Protein Test strip Ql (U)on 12-17-2021 Protein Ql (U) Negative Negative [facility] Work Phone: Squamous epithelial cells de tection in urine sediment by light microscopyon 12-17-2021 Epithelial cells.squamous LM Ql (Urine sed) 0-5 SEEN /hpf 5-10 [facility] Work Phone: Urine blood detectionon 12-02 RBC Ql (U) Negative Negative [facility] Work Phone: RBC Ql (U) 0 SEEN /hpf 0-5 [facility] Work Phone: Urine clarityon 12-17-2021 Clarity (U) Clear Clear [facility] Work Phone: Urine color determinationon 12-17-2021 Color (U) Yellow Yellow [facility] Work Phone: Urine glucose detectionon Glucose Ql (U) Normal mg/dl Normal [facility] Work Phone: Urine leukocyte esterase det ection by dipstickon 12-17-2021 Leukocyte esterase Test strip Ql (U) 100 /ul Negative [facility] Work Phone: Urine pHon 12-17-2021 pH (U) 8.0 [pH] 5.0 - 8.0 [facility] Work Phone: Urine sediment bacteria coun t by microscopy (number/high power field)on 12-17-2021 Bacteria LM.HPF (Urine sed) [#/Area] 1 /[HPF] None Seen [facility] Work Phone: Urine specific gravity measu rementon 12-17-2021 Specific gravity (U) [Rel density] 1.015 1.002-1.030 [facility] Work Phone: Urobilinogen Auto test strip Ql (U)on 12-17-2021 Urobilinogen Ql (U) 1 mg/dl Normal [facility] Work Phone: Laboratory - Hematology and Cell countson 11-06-2021 HbA1c (Bld) [Mass fraction] 7.2 % 4.2-6.3 [facility] Work Phone: Absolute lymphocyte counton 10-25-2021 Lymphocytes Auto (Unsp spec) [#/Vol] 2.55 10*3/uL 0.83-4.51 [facility] Work Phone: Basophil percentageon 2021 Basophils/100 WBC (Bld) 0.5 % 0-1 [facility] Work Phone: Bilirubin [Mass/Vol] 0.20 mg/dL 0.20-1.00 [facility] Work Phone: Comment on above: For patients on eltr ombopag therapy, use of Dimension [place] TBIL is not recommended. Chloride [Moles/Vol] 105 mmol/L 98-107 [facility] Work Phone: Eosinophils/100 WBC (Bld) 2.1 % 0-5 [facility] Work Phone: Glucose [Mass/Vol] 188 mg/dL 74-106 [facility] Work Phone: Comment on above: Fasting Glucose resu lt greater than or equal to 126 mg/dL suggests DIABETES MELLITUS per A.D.A. criteria. Neutrophils (Bld) [#/Vol] 3.5 10*3/uL 2.0-7.7 [facility] Work Phone: Neutrophils/100 WBC (Bld) 52.9 % 47-70 [facility] Work Phone: Potassium [Moles/Vol] 4.0 mmol/L 3.5-5.1 [facility] Work Phone: Protein [Mass/Vol] 7.6 g/dL 6.4-8.2 [facility] Work Phone: Sodium [Moles/Vol] 138 mmol/L 136-145 [facility] Work Phone: WBC (Bld) [#/Vol] 6.6 10*3/uL 4.4-11.0 [facility] Work Phone: Blood erythrocytes count (nu mber/volume)on 10-25-2021 RBC (Bld) [#/Vol] 4.16 10*6/uL 4.2-5.4 [facility] Work Phone: Blood hemoglobin measurement (mass/volume)on 10-25-2021 Hemoglobin (Bld) [Mass/Vol] 13.0 g/dL 12.0-15.0 [facility] Work Phone: Blood lymphocytes/100 leukoc yteson 10-25-2021 Lymphocytes/100 WBC (Bld) 38.4 % 19-41 [facility] Work Phone: Blood monocytes/100 leukocyt eson 10-25-2021 Monocytes/100 WBC (Bld) 5.9 % 0-10 [facility] Work Phone: Blood platelet mean volumeon 10-25-2021 Platelet mean volume (Bld) [Entitic vol] 10.6 fL 6.2-12.0 [facility] Work Phone: Determination of erythrocyte mean corpuscular volume (MCV)on 10-25-2021 MCV (RBC) [Entitic vol] 95.4 fL 81-99 [facility] Work Phone: Hematocrit Auto (Bld) [Volum e fraction]on 10-25-2021 Hematocrit (Bld) [Volume fraction] 39.7 % 37-47 [facility] Work Phone: Laboratory - Chemistry and C hemistry - challengeon 10-25-2021 ALP [Catalytic activity/Vol] 92 U/L 45-117 [facility] Work Phone: ALT [Catalytic activity/Vol] 33 U/L 13-56 [facility] Work Phone: CO2 [Moles/Vol] 27.0 mmol/L 21.0-32.0 [facility] Work Phone: Globulin (S) [Mass/Vol] 4.1 g/dL 2.2-4.2 [facility] Work Phone: Lipase [Catalytic activity/Vol] 89 U/L 73-393 [facility] Work Phone: Urea nitrogen/Creatinine [Mass ratio] 20.7 mg/mg 10-20 [facility] Work Phone: Laboratory - Hematology and Cell countson 10-25-2021 Erythrocyte distribution width (RBC) [Entitic vol] 46.5 fL 35.1-43.9 [facility] Work Phone: Erythrocyte distribution width (RBC) [Ratio] 13.1 % 11.6-14.6 [facility] Work Phone: Immature granulocytes/100 WBC (Bld) 0.200 % 0.0-0.9 [facility] Work Phone: Comment on above: IG% - Immature Granu locytes (promyelocytes, myelocytes and metamyelocytes) > 1% indicates that a LEFT SHIFT is Present. MCH (RBC) [Entitic mass] 31.3 pg 27.0-32.0 [facility] Work Phone: Nucleated RBC/100 WBC (Bld) [Ratio] 0 % 0-5 [facility] Work Phone: MCHC Auto (RBC) [Mass/Vol]on 10-25-2021 MCHC (RBC) [Mass/Vol] 32.7 g/dL 32-36 [facility] Work Phone: No Panel Informationon 10-25 Estimated Creatinine Clearance Calc 46.29 ml/min [facility] Work Phone: Estimated GFR (MDRD) Amer 78 mL/min >60 [facility] Work Phone: Comment on above: GFR Calc Estimated GFR (MDRD) Non-Af Amer 64 mL/min >60 [facility] Work Phone: Comment on above: Non- GFR Calc Troponin I High Sensitivity < 3 pg/mL 3.0-54.0 [facility] Work Phone: Comment on above: Please Note: New Gina t Units and Gender Specific Reference Ranges. For more information see Policy Stat Procedure [place] High Sensitivity Troponin (TNIH) and attachments. Platelets bldon 10-25-2021 Platelets (Bld) [#/Vol] 223 10*3/uL 150-450 [facility] Work Phone: Serum or plasma albumin loretta urement (mass/volume)on 10-25-2021 Albumin [Mass/Vol] 3.5 g/dL 3.2-5.0 [facility] Work Phone: Serum or plasma albumin/glob ulin mass ratioon 10-25-2021 Albumin/Globulin [Mass ratio] 0.9 {ratio} 0.9-2.4 [facility] Work Phone: Serum or plasma calcium loretta urement (mass/volume)on 10-25-2021 Calcium [Mass/Vol] 9.1 mg/dL 8.5-10.1 [facility] Work Phone: Serum or plasma creatinine m easurement (mass/volume)on 10-25-2021 Creatinine [Mass/Vol] 0.92 mg/dL 0.55-1.02 [facility] Work Phone: Comment on above: The validity of the calculated GFR & GFRAA in patients over 70 years has not been determined. Clinical correlation is essential. Serum or plasma urea nitroge n measurement (mass/volume)on 10-25-2021 Urea nitrogen [Mass/Vol] 19 mg/dL 7-18 [facility] Work Phone: Thin prep Papanicolaou smear with manual screeningon 10-25-2021 Thin prep Papanicolaou smear with manual screening 22 U/L 15-37 [facility] Work Phone: Thin prep Papanicolaou smear with manual screening 6 5-15 [facility] Work Phone: PROGRESSon 06-03-2018 Protein mass conc HNO ID: [id number] Author: Tila (Pt) Jenelle Service: (none) Author Type: Physical Therapist Type: Progress Notes Filed: 06/03/2018 12:16 PM Note Text: 06/03/2018 [facility] PHYSICAL THERAPY DISCONTINUANCE OF CARE Plan of Care Period: Start of Care Date: 01/05/18 Last Visit Date: 02/25/18 Therapy Program: The following is a summary of the interventions provided for this episode of care; Therapeutic exercise, Neuromuscular re-education, Manual therapy, Patient/Family/Caregiver Education and Modalities: Ultrasound Assessment: The following is the goal status: Goals updated on 02/04/2018. Barry in home exercise program.--MET for current HEP [...] and Moving Around: G8979 CH 0% impaired Based on the most recent progress report, patient was progressing as expected toward functional goals based on home exercise program compliance, pain levels, documented subjective information on progress and documented objective information regarding gait and overall function. Reason for Discontinuation of Care: Patient has not returned to therapy or scheduled additional follow-up appointments. NAVNEET Posada [facility] CNTHERAPYon 02-25-2018 CNTHERAPY OT/PT/Speech Visit (PTWS) -------- LACY LAVARADO ([id number]) 1950 F Date Time Provider Department 02/25/18 7:00 AM TILA ALMANZAR (PT) PTWS Date Time Provider Department Center 02/25/2018 7:00 AM [id number], DIANA (PT)PTWS [facility] Reason for Visit: Physical Therapy [503] [...] CAPSULE,MANDIE* Take 1 capsule by mouth twice* [id number] NIRU * Use 3 Drops in the [...] needs. Patient response monitored throughout treatment. Billing: [facility]: Therapeutic Exercise (47269): 1:1 time: 36 minutes (2 units: 23-37 mins) Modalities Ultrasound (08017) 1:1 time: 8 minutes1 unit: 8-22 mins Total time: 44 minutes Tila Almanzar, PT Tila Almanzar, PT 06/03/2018 12:16 PM Signed 06/03/2018 [facility] PHYSICAL THERAPY DISCONTINUANCE OF CARE Plan of Care Period: Start of Care Date: 01/05/18 Last Visit Date: 02/25/18 Therapy Program: The following is a summary of the interventions provided for this episode of care; Therapeutic exercise, Neuromuscular re-education, Manual therapy, Patient/Family/Caregiver Education and Modalities: Ultrasound Assessment: The following is the goal status: Goals updated on 02/04/2018. Barry in home exercise program.--MET for current HEP [...] Status: Mobility: Walking and Moving Around: G8978 CJ 20-39% impaired Goal Status: Mobility: Walking and Moving Around: G8979 CJ 20-39% impaired Progress Report: 02/04/2018 Current Status: Mobility: Walking and Moving Around: G8978 CI 1-19% impaired Goal Status: Mobility: Walking and Moving Around: G8979 CH 0% impaired Based on the most recent progress report, patient was progressing as expected toward functional goals based on home exercise program compliance, pain levels, documented subjective information on progress and documented objective information regarding gait and overall function. Reason for Discontinuation of Care: Patient has not returned to therapy or scheduled additional follow-up appointments. Tila Almanzar PT -------- Normal [facility] PROGRESSon 02-25-2018 Protein mass conc HNO ID: [id number] Author: Tila (Pt) Jenelle Service: (none) Author [...] response monitored throughout treatment. Billing: [facility]: Therapeutic Exercise (48606): 1:1 time: 36 minutes (2 units: 23-37 mins) Modalities Ultrasound (32108) 1:1 time: 8 minutes1 unit: 8-22 mins Total time: 44 minutes Tila Almanzar PT Normal [facility] CNOVon 02-22-2018 CNOV Office Visit (PODIWS ) -------- LACY ALVARADO ([id number]) 1950 F Date Time Provider Department 02/22/18 7:40 AM MYNOR FLORESIWS During your visit today, we recorded the [...] comment (PT,) [facility] She continues with 10/10 pain that comes and goes. She is currently in PT and states it is helping some. She wants to pursue surgery in the future, possibly next summer. Mynor ALEXA Flores 02/22/2018 8:19 AM Signed Follow up podiatric [...] (H) 4.3 - 5.6 % Final Comment: Citizen Of [place] Diabetes Association guidelines indicate that patients with [...] 81 MG TAB Take one(1) tablet daily. rpqyelyb-nlvlcnneg-xexrt cortisone (CORTISPORIN) otic solution Use 3 Drops [...] Mynor Flores DPM Referring Provider: MYNOR FLORES [[id number]] Allergies As of Date: 02/22/2018 Noted Allergy [...] [M76.61] Order(s):XR FOOT GENERAL 3V AP/LAT/OBL RT [[id number]] Order #: [id number] FUTURE MRI ANKLE WO IVCON RT [[id number]] Order #: [id number] FUTURE Prescriptions as of 02/22/2018 Sig: VERAPAMIL [...] 81 MG TABLET Take one(1) tablet daily. KFUOPVJO-MZNKDTVZZ-VDRDA NIRU * Use 3 Drops in the [...] by MYNOR FLORES DPM on 02/22/18 Normal [facility] 02-22-2018 Protein mass conc HNO ID: [id number] Author: John Paul Godinez (Rt) Service: (none) Author Type: Immigration Case Manager Type: Progress Notes Filed: 02/22/2018 10:36 AM [...] Gretchen February 22, 2018 8:59 AM Normal [facility] Protein mass conc HNO ID: [id number] Author: Mynor Flores Service: (none) Author Type: [...] (H) 4.3 - 5.6 % Final Comment: Citizen [place] Diabetes Association guidelines indicate that patients with [...] 81 MG TAB Take one(1) tablet daily. ezazbmlc-ipmswpoyw-ulebx cortisone (CORTISPORIN) otic solution Use 3 Drops [...] low transverse - COLONOSCOP W/ OR W/O [facility] SPEC 01/12/2013 Colonoscopy - EGD W/O OR [...] interested in surgery. Mynor Flores DPM Normal [facility] Protein mass conc HNO ID: [id number] Author: Carmelita Limon RN Service: (none) Author [...] f/u on [place], R. She continues with 02/10 pain that comes and goes. She is currently in PT and states it is helping some. She wants to pursue surgery in the future, possibly next summer. Normal [facility] XR FEMUR 2V AP/LAT RTon 10- XR FEMUR 2V AP/LAT RT * * [...] DEGENERATIVE CHANGES IN THE HIP AND KNEE. Study Abroad Coordinator: AudienceViewB Transcribe Date/Time: Feb 22 2018 3:06P Dictated by : CHRIS FRANCIS MD This examination was interpreted and the report reviewed and electronically signed by: CHRIS FRANCIS MD on Feb 22 2018 3:15PM EST [id number] Normal [facility] XR FOOT 3V AP/LAT/OBL RTon 1 XR [...] NO CHANGE COMPARED TO THE PREVIOUS EXAM. Study Abroad Coordinator: RADHA Transcribe Date/Time: Feb 22 2018 3:15P Dictated by : CHRIS FRANCIS MD This examination was interpreted and the report reviewed and electronically signed by: CHRIS FRANCIS MD on Feb 22 2018 3:18PM EST [id number] Normal [facility] CNTHERAPYon 02-18-2018 CNTHERAPY OT/PT/Speech Visit (PTWS) -------- LACY ALVARADO ([id number]) 1950 F Date Time Provider Department 02/18/18 7:00 AM TILA ALMANZAR (PT) PTWS Date Time Provider Department Center 02/18/2018 7:00 AM [id number], DIANA (PT)PTWS [facility] Reason for Visit: Physical Therapy [503] [...] CAPSULE,MANDIE* Take 1 capsule by mouth twice* AVMOZAKS-YOZJTUBFV-RRSVQ NIRU * Use 3 Drops in the [...] response monitored throughout treatment. Billing: [facility]: Therapeutic Exercise (26230): 1:1 time: 35 minutes (2 units: 23-37 mins) Modalities Ultrasound (89503) 1:1 time: 8 minutes1 unit: 8-22 mins Total time: 43 minutes Tila Almanzar PT -------- Normal [facility] PROGRESSon 02-18-2018 Protein mass conc HNO ID: [id number] Author: Tila (Pt) Jenelle Service: (none) Author [...] TREATMENT NOTE ASSESSMENT: Lacy Ede Alvarado demonstrated improvements in R hip and [...] response monitored throughout treatment. Billing: [facility]: Therapeutic Exercise (00406): 1:1 time: 35 minutes (2 units: 23-37 mins) Modalities Ultrasound (83712) 1:1 time: 8 minutes1 unit: 8-22 mins Total time: 43 minutes NAVNEET Posada [facility] CNTHERAPYon 02-11-2018 CNTHERAPY OT/PT/Speech Visit (PTWS) -------- LACY ALVARADO ([id number]) 1950 F Date Time Provider Department 02/11/18 7:45 AM TILA ALMANZAR (PT) PTWS Date Time Provider Department Center 02/11/2018 7:45 AM [id number], DIANA (PT)PTWS [facility] Reason for Visit: Physical Therapy [503] [...] CAPSULE,MANDIE* Take 1 capsule by mouth twice* JDKUAJRR-QLAGKHCFN-NVYNG NIRU * Use 3 Drops in the [...] Patient education as noted. Billing: [facility]: Therapeutic Exercise (01345): 1:1 time: 38 minutes (3 units: 38-52 mins) Total time: 38 minutes [facility]ila [facility]manzar PT -------- [facility] 02-11-2018 Protein mass conc HNO ID: [id number] Author: Tila (Pt) Jenelle Service: (none) Author [...] Patient education as noted. Billing: [facility]: Therapeutic Exercise (11079): 1:1 time: 38 minutes (3 units: 38-52 mins) Total time: 38 minutes Tila Almanzar PT Normal [facility] CNTHERAPYon 02-04-2018 CNTHERAPY OT/PT/Speech Visit (PTWS) -------- LACY ALVARADO ([id number]) 1950 F Date Time Provider Department 02/04/18 7:45 AM TILA ALMANZAR (PT) PTWS Date Time Provider Department Center 02/04/2018 7:45 AM [id number], DIANA (PT)PTWS [facility] Reason for Visit: PT Progress Note [...] CAPSULE,MANDIE* Take 1 capsule by mouth twice* ABRGTDYF-XIIHJNCUD-ZTBER NIRU * Use 3 Drops in the [...] intensity of pain Goals updated on 02/04/2018. Barry in home exercise program.--MET for current HEP [...] for Therapeutic exercise;Neuromuscular re-education;Manual therapy;Therapeutic activities;Self-shelter management;Gait Training;Patient/Family/ Caregiver Education;Modalities;Fun ctional training;General Conditioning [...] selection of appropriate interventions. Billing: [facility]: Therapeutic Exercise (59162): 1:1 time: 20 minutes (1 unit: 8-22 mins) Total time: 20 minutes Tila Almanzar PT -------- Normal [facility] PROGRESSon 02-04-2018 Protein mass conc HNO ID: [id number] Author: Tila (Pt) Jenelle Service: (none) Author [...] intensity of pain Goals updated on 02/04/2018. Barry in home exercise program.--MET for current HEP [...] for Therapeutic exercise;Neuromuscular re-education;Manual therapy;Therapeutic activities;Self-shelter management;Gait Training;Patient/Family/ Caregiver Education;Modalities;Fun ctional training;General Conditioning [...] selection of appropriate interventions. Billing: [facility]: Therapeutic Exercise (78866): 1:1 time: 20 minutes (1 unit: 8-22 mins) Total time: 20 minutes Tila Almanzar PT Normal [facility] CNTHERAPYon 02-02-2018 CNTHERAPY OT/PT/Speech Visit (PTWS) -------- LACY ALVARADO ([id number]) 1950 F Date Time Provider Department 02/02/18 7:45 AM TILA ALMANZAR (PT) PTWS Date Time Provider Department Center 02/02/2018 7:45 AM [id number], DIANA (PT)PTWS [facility] Reason for Visit: Physical Therapy [503] [...] CAPSULE,MANDIE* Take 1 capsule by mouth twice* JIMRJIGJ-VHTIRBVFK-AUQTC NIRU * Use 3 Drops in the [...] Manual Therapy: 1: Prone: IASTM with [employer] Scanner for 13 minutes to R achillies tendon Skilled Intervention: Manual skills to improve joint mobility, ROM, and decrease pain. Utilized anatomy knowledge of the therapist, and assessment of patient's response to intervention. Billing: [facility]: Therapeutic Exercise (72944): 1:1 time: 22 minutes (1 unit: 8-22 mins) Manual Therapy (25412): 1:1 time: 13 minutes (1 unit: 8-22 mins) Total time: 35 minutes Tila Almanzar PT -------- [facility] PRO[facility]ESS[facility] 02-02-2018 Protein mass conc HNO ID: [id number] Author: Tila (Pt) Jenelle Service: (none) Author [...] Manual Therapy: 1: Prone: IASTM with [employer] Scanner for 13 minutes to R achillies tendon Skilled Intervention: Manual skills to improve joint mobility, ROM, and decrease pain. Utilized anatomy knowledge of the therapist, and assessment of patient's response to intervention. Billing: [facility]: Therapeutic Exercise (80402): 1:1 time: 22 minutes (1 unit: 8-22 mins) Manual Therapy (08750): 1:1 time: 13 minutes (1 unit: 8-22 mins) Total time: 35 minutes Tila Almanzar PT Normal [facility] PROGRESSon 01-31-2018 Protein mass conc HNO ID: [id number] Author: Tila (Navneet) Jenelle Service: (none) Author Type: Physical Therapist [...] interventions. Manual Therapy: 1: Prone: IASTM with [employer] Scanner for 8 minutes to R achillies [...] response monitored throughout treatment. Billing: [facility]: Therapeutic Exercise (60280): 1:1 time: 20 minutes (2 units: 23-37 mins) Manual Therapy (03059): 1:1 time: 12 minutes (1 unit: 8-22 mins) Modalities Ultrasound (85128) 1:1 time: 10 minutes1 unit: 8-22 mins Total time: 42 minutes Tila Almanzar PT Normal [facility] CNTHERAPYon 01-28-2018 CNTHERAPY OT/PT/Speech Visit (PTWS) -------- LACY ALVARADO ([id number]) 1950 F Date Time Provider Department 01/28/18 7:45 AM TILA ALMANZAR (PT) PTWS Date Time Provider Department Center 01/28/2018 7:45 AM [id number], DIANA (PT)PTWS [facility] Reason for Visit: Physical Therapy [503] [...] CAPSULE,MANDIE* Take 1 capsule by mouth twice* [id number]-JPCUVTUHJ-KIHPV NIRU * Use 3 Drops in the [...] Take one(1) tablet daily. Progress Notes: Tila Almanzar, PT 01/31/2018 12:19 PM Signed Episode Visit Count: 6 Therapist That Will Oversee The Plan Of Care: Tila Almanzar, PT Start of Care Date: 01/05/18 Onset [...] interventions. Manual Therapy: 1: Prone: IASTM with [employer] Gemologist Scanner for 8 minutes to R achillies [...] response monitored throughout treatment. Billing: [facility]: Therapeutic Exercise (06626): 1:1 time: 20 minutes (2 units: 23-37 mins) Manual Therapy (25057): 1:1 time: 12 minutes (1 unit: 8-22 mins) Modalities Ultrasound (04221) 1:1 time: 10 minutes1 unit: 8-22 mins Total time: 42 minutes Tila Almanzar PT -------- Normal [facility] PROGRESSon 01-27-2018 Protein mass conc HNO ID: [id number] Author: Tila Almanzar Service: (none) Author Type: [...] up she had not problems. Tried [employer] scanner tool for IASTM and Kinesiotaping. Will assess at next session. The patient will continue to benefit from continued skilled physical therapy for thex ex, manual, and US for pain control of R heel pain. PLAN FOR NEXT VISIT: See how liked [employer]ologist tools and kinesiotape; BAPS Board for Ankle [...] Manual Therapy: 1: Prone: IASTM with [employer] Scanner for 6 minutes to R achillies [...] response monitored throughout treatment. Billing: [facility]: Therapeutic Exercise (95182): 1:1 time: 20 minutes (1 unit: 8-22 mins) Manual Therapy (99773): 1:1 time: 15 minutes (1 unit: 8-22 mins) Modalities Ultrasound (94551) 1:1 time: 10 minutes1 unit: 8-22 mins Total time: 45 minutes NAVNEET Posada [facility] CNTHERAPYon 01-26-2018 CNTHERAPY OT/PT/Speech Visit (PTWS) -------- LACY ALVARADO ([id number]) 1950 F Date Time Provider Department 01/26/18 7:00 AM TILA ALMANZAR (PT) BK Date Time Provider Department Center 01/26/2018 7:00 AM [id number], DIANA (PT)PTWS [facility] Reason for Visit: Physical Therapy [503] [...] CAPSULE,MANDIE* Take 1 capsule by mouth twice* [id number]-[id number]-CWZIY NIRU * Use 3 Drops in the [...] up she had not problems. Tried [employer] scanner tool for IASTM and Kinesiotaping. Will assess at next session. The patient will continue to benefit from continued skilled physical therapy for thex ex, manual, and US for pain control of R heel pain. PLAN FOR NEXT VISIT: See how liked [employer] Gemologist tools and kinesiotape; BAPS Board for Ankle [...] cuing. Manual Therapy: 1: Prone: IASTM with [employer] Scanner for 6 minutes to R achillies [...] response monitored throughout treatment. Billing: [facility]: Therapeutic Exercise (40910): 1:1 time: 20 minutes (1 unit: 8-22 mins) Manual Therapy (18030): 1:1 time: 15 minutes (1 unit: 8-22 mins) Modalities Ultrasound (53401) 1:1 time: 10 minutes1 unit: 8-22 mins Total time: 45 minutes Tila Almanzar PT -------- Normal [facility] PROGRESSon 01-24-2018 Protein mass conc HNO ID: [id number] Author: Tila (Pt) Jenelle Service: (none) Author [...] response monitored throughout treatment. Billing: [facility]: Therapeutic Exercise (00052): 1:1 time: 19 minutes (1 unit: 8-22 mins) Manual Therapy (44057): 1:1 time: 8 minutes (1 unit: 8-22 mins) Modalities Ultrasound (43790) 1:1 time: 15 minutes1 unit: 8-22 mins Total time: 42 minutes NAVNEET Posada [facility] CNTHERAPYon 01-21-2018 CNTHERAPY OT/PT/Speech Visit (PTWS) -------- LACY ALVARADO ([id number]) 1950 F Date Time Provider Department 01/21/18 7:45 AM TILA ALMANZAR (PT) PTJOCE Date Time Provider Department Center 01/21/2018 7:45 AM [id number], DIANA (PT)PTWS [facility] Reason for Visit: Physical Therapy [503] [...] CAPSULE,MANDIE* Take 1 capsule by mouth twice* JLRWPYFO-NZPTBGILU-PBASL NIRU * Use 3 Drops in the [...] SPORTS THERAPY PHYSICAL THERAPY TREATMENT NOTE ASSESSMENT: Layc Alvarado demonstrated no change in R heel [...] response monitored throughout treatment. Billing: [facility]: Therapeutic Exercise (93897): 1:1 time: 19 minutes (1 unit: 8-22 mins) Manual Therapy (71313): 1:1 time: 8 minutes (1 unit: 8-22 mins) Modalities Ultrasound (24998) 1:1 time: 15 minutes1 unit: 8-22 mins Total time: 42 minutes Tila Almanzar PT -------- Normal [facility] CNTHERAPYon 01-12-2018 CNTHERAPY OT/PT/Speech Visit (PTWS) -------- LACY ALVARADO ([id number]) 1950 F Date Time Provider Department 01/12/18 7:00 AM TILA ALMANZAR (PT) PTWS Date Time Provider Department Center 01/12/2018 7:00 AM [id number], DIANA (PT)PTWS [facility] Reason for Visit: Physical Therapy [503] [...] CAPSULE,MANDIE* Take 1 capsule by mouth twice* UWYFVWAS-KADSLRPUI-FSXRF NIRU * Use 3 Drops in the [...] TABLET Take one(1) tablet daily. Progress Notes: iTla Almanzar PT 01/12/2018 8:04 AM Signed Episode [...] response monitored throughout treatment. Billing: [facility]: Therapeutic Exercise (45252): 1:1 time: 20 minutes (1 unit: 8-22 mins) Manual Therapy (97196): 1:1 time: 8 minutes (1 unit: 8-22 mins) Modalities Ultrasound (45529) 1:1 time: 15 minutes1 unit: 8-22 mins Total time: 43 minutes Tila Almanzar PT -------- Normal [facility] PROGRESSon 01-12-2018 Protein mass conc HNO ID: [id number] Author: Tila (Pt) Jenelle Service: (none) Author [...] response monitored throughout treatment. Billing: [facility]: Therapeutic Exercise (03905): 1:1 time: 20 minutes (1 unit: 8-22 mins) Manual Therapy (28571): 1:1 time: 8 minutes (1 unit: 8-22 mins) Modalities Ultrasound (51551) 1:1 time: 15 minutes1 unit: 8-22 mins Total time: 43 minutes NAVNEET Posada [facility] CNOVon 01-11-2018 CNOV Office Visit (PODIWS ) -------- LACY ALVARADO ([id number]) 1950 F Date Time Provider Department 01/11/18 9:10 AM MYNOR FLORES During your visit today, we recorded the following information about you: Mynor Flores DPM 01/11/2018 9:48 AM Signed ? Mynor Flores DPM Department of Podiatry [address] [place] [address] Dept: [phone] Dept 01/11/2018 Follow Up Podiatric Office Visit: HPI: Lacy Alvarado is a 67 year old female. Patient presents to discuss options for Tere Randhwaa. She has constant pain to R heel [...] Take 1 capsule by mouth twice daily. 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 Follow-up and Disposition History Recorded Encounter Status:Closed by MYNOR FLORES DPM on 01/11/18 [facility] PROGRESSon 01-11-2018 Protein mass conc HNO ID: [id number] Author: Mynor Flores Service: (none) Author Type: Physician Type: Progress Notes Filed: 01/11/2018 9:48 AM Note Text: ? Mynor Flores DPM Department of Podiatry [address] [facility] [address] Dept: [phone] Dept 01/11/2018 Follow Up Podiatric Office Visit: [...] Take 1 capsule by mouth twice daily. 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 Lives with son in [place] REVIEW OF SYSTEMS: CONSTITUTIONAL: No fevers, chills, [...] in 6 weeks Mynor Flores DPM [facility] CNTHERAPYon 01-07-2018 CNTHERAPY OT/PT/Speech Visit (PTWS) -------- LACY ALVARADO ([id number]) 1950 F Date Time Provider Department 01/07/18 7:00 AM TILA ALMANZAR (PT) PTWS Date Time Provider Department Center 01/07/2018 7:00 AM [id number], DIANA (PT)PTWS [facility] Reason for Visit: Physical Therapy [503] [...] CAPSULE,MANDIE* Take 1 capsule by mouth twice* YNMQOCTX-MUGSDVNKK-BTGQN NIRU * Use 3 Drops in the [...] response monitored throughout treatment. Billing: [facility]: Therapeutic Exercise (84039): 1:1 time: 15 minutes (1 unit: 8-22 mins) Modalities Ultrasound (37823) 1:1 time: 15 minutes1 unit: 8-22 mins Total time: 30 minutes Tila Almanzar PT -------- Normal [facility] PROGRESSon 01-07-2018 Protein mass conc HNO ID: [id number] Author: Tila (Pt) Jenelle Service: (none) Author [...] response monitored throughout treatment. Billing: [facility]: Therapeutic Exercise (02790): 1:1 time: 15 minutes (1 unit: 8-22 mins) Modalities Ultrasound (16119) 1:1 time: 15 minutes1 unit: 8-22 mins Total time: 30 minutes NAVNEET Posada [facility] CNTHERAPYon 01-05-2018 CNTHERAPY OT/PT/Speech Visit (PTWS) -------- LACY ALVARADO ([id number]) 1950 F Date Time Provider Department 01/05/18 7:00 AM TILA ALMANZAR (PT) PTWS Date Time Provider Department Center 01/05/2018 7:00 AM [id number], DIANA (PT)PTWS [facility] Reason for Visit: PT Eval [747] [...] CAPSULE,MANDIE* Take 1 capsule by mouth twice* TMXHWDPI-JVRHHEPZP-ZKMCS NIRU * Use 3 Drops in the [...] of Care: created on 01/05/18 through 03/16/18 Barry in home exercise program. Patient will decrease [...] Interventions: Therapeutic exercise;Neuromuscular re-education;Manual therapy;Therapeutic activities;Self-shelter management;Gait Training;Patient/Family/ Caregiver Education;Modalities;Fun ctional training;General ConditioningUltrasound [...] facilitated with verbal, visual and tactile cuing. Self-Residential Management: 1: Recommended to stop wearing high [...] presentation, deficits, and needs. Billing: [facility]: Evaluation - Low Complexity (09237) Therapeutic Exercise (24363): 1:1 time: 15 minutes (1 unit: 8-22 mins) Educ Home Mgmt (07325): 1:1 time: 10 minutes (1 unit: 8-22 mins) Total time: 38 minutes Tila Almanzar PT -------- Normal [facility] PROGRESSon 01-05-2018 Protein mass conc HNO ID: [id number] Author: Tila (Pt) Jenelle Service: (none) Author [...] of Care: created on 01/05/18 through 03/16/18 Barry in home exercise program. Patient will decrease [...] Interventions: Therapeutic exercise;Neuromuscular re-education;Manual therapy;Therapeutic activities;Self-shelter management;Gait Training;Patient/Family/ Caregiver Education;Modalities;Fun ctional training;General ConditioningUltrasound [...] facilitated with verbal, visual and tactile cuing. Self-Residential Management: 1: Recommended to stop wearing high [...] presentation, deficits, and needs. Billing: [facility]: Evaluation - Low Complexity (50714) Therapeutic Exercise (53234): 1:1 time: 15 minutes (1 unit: 8-22 mins) Educ Home Mgmt (13508): 1:1 time: 10 minutes (1 unit: 8-22 mins) Total time: 38 minutes Tila Almanzar PT [facility] CNOVon 12-09-2017 CNOV Office Visit (PODIWS ) -------- LACY ALVARADO ([id number]) 1950 F Date Time Provider Department 12/09/17 7:55 AM MYNOR FLORES During your visit today, we recorded the following information about you: Mynor Flores DPM 12/09/2017 8:20 AM Signed ? Mynor Flores DPM Department of Podiatry [address] [place] [address] Dept: [phone] Dept 12/09/2017 Follow Up Podiatric Office Visit: [...] Take 1 capsule by mouth twice daily. 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] Other Visit Diagnoses:Tendonitis, Achilles, right [M76.61] Diminished pulses in lower extremity [R09.89] Order(s):[facility]R [facility] [3324596] Order #: [id number] FUTURE CONSULT TO PHYSICAL THERAPY [9056] Order #: [id number]: 1 Prescriptions as of 12/09/2017 Sig: VERAPAMIL [...] CAPSULE,MANDIE* Take 1 capsule by mouth twice* XCPNRLVX-MTFORRTWP-MSZNR NIRU * Use 3 Drops in the [...] by MYNOR FLORES DPM on 12/09/17 [facility] PROGRESSon 12-09-2017 Protein mass conc HNO ID: [id number] Author: Mynor Flores Service: (none) Author Type: Physician Type: Progress Notes Filed: 12/09/2017 8:20 AM Note Text: ? Mynor Flores DPM Department of Podiatry [address] [place] [address] Dept: [phone] Dept 12/09/2017 Follow Up Podiatric Office Visit: [...] Take 1 capsule by mouth twice daily. 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 [address] Dept: [phone] Dept October 15, 2017 CHIEF COMPLAINT: new [...] MD Imaging: IMPRESSION: MILD DEGENERATIVE JOINT DISEASE. Study Abroad Coordinator: RADHA ? Transcribe Date/Time: Oct 14 2017 [...] 81 MG TAB Take one(1) tablet daily. udmeboos-pqhxllzaq-tausf cortisone (CORTISPORIN) otic solution Use 3 Drops [...] anxiety) This note was partially generated using [employer] voice recognition system, and there may be some incorrect words, spellings, and punctuation that were not noted in checking the note before saving. Jossue Finley MD Referring Provider: JOSSUE FINLEY [[id number]] Allergies As of Date: 10/15/2017 Noted Allergy [...] 81 MG TABLET Take one(1) tablet daily. AYJIZBWH-ZOOPFVHEU-EVVYF NIRU * Use 3 Drops in the [...] BUILDER 10/15/2017 10/15/2017 Class: Suppress Questions Route: [facility] Encounter Status:Closed by JOSSUE FINLEY MD on 10/15/17 [facility] PROGRESSon 10-15-2017 Protein mass conc HNO ID: [id number] Author: Jossue Finley Service: (none) Author Type: Physician Type: Progress Notes Filed: 10/15/2017 4:13 PM Note Text: Jossue Finley MD Department of Orthopaedics Orthopaedics [address] [facility] [address] Dept: [phone] Dept October 15, 2017 CHIEF COMPLAINT: new [...] MD Imaging: IMPRESSION: MILD DEGENERATIVE JOINT DISEASE. Study Abroad Coordinator: RADHA ? Transcribe Date/Time: Oct 14 2017 [...] 81 MG TAB Take one(1) tablet daily. aawlmkei-skmmlegnq-oyari cortisone (CORTISPORIN) otic solution Use 3 Drops [...] anxiety) This note was partially generated using [employer] voice recognition system, and there may be some incorrect words, spellings, and punctuation that were not noted in checking the note before saving. Jossue Finley MD Normal [facility] Protein mass conc HNO ID: [id number] Author: Norma Leone RN Service: (none) Author [...] afterward to clean out scar tissue. Normal [facility] PROGRESSon 10-14-2017 Protein mass conc HNO ID: [id number] Author: John Paul Frias (Tech) Service: (none) Author Type: Immigration Case Manager Type: Progress Notes Filed: 10/14/2017 9:03 AM [...] Dozier October 14, 2017 9:02 AM Normal [facility] XR KNEE 4V AP/PA BOTH+LAT/ME R LTon [...] No fracture. IMPRESSION: MILD DEGENERATIVE JOINT DISEASE. Study Abroad Coordinator: RADHA Transcribe Date/Time: Oct 14 2017 12:16P Dictated by : CHRIS FRANCIS MD This examination was interpreted and the report reviewed and electronically signed by: CHRIS FRANCIS MD on Oct 14 2017 12:20PM EST [id number] [facility] CNCOon 07-20-2017 CNCO HNO ID: [id number] Author: Mammography Coordinator Service: (none) Author Type: Physician Type: Letter Filed: 07/21/2017 11:31 PM Note Text: July 20, 2017 PID: [id number] Lacy Alvarado [address] [place] [address] Dear Ms. Alvarado, We are pleased to [...] be kept on file at [facility] as part of your permanent medical record and are available for your continuing care. Thank you for allowing us to help in meeting your health care needs. Sincerely, Dr. Jaime Interpreting Radiologist [facility] (Normal over 40) Normal [facility] Lipid Panel, [place] 018 Cholesterol in HDL mass conc 49 mg/dL Normal >39 [facility] Comment on above: Result Comment: 40-5 9 mg/dL, Acceptable >59 mg/dL, High: Negative risk factor for coronary heart disease <40 mg/dL, Low: Positive risk factor for coronary heart disease Performed By: #### L IPB #### [facility] [employer] [address] [place], [place] [id number] Cholesterol in LDL mass conc 157 mg/dL High <100 [facility] Comment on above: Result Comment: <100 mg/dL, Optimal 100-129 mg/dL, Near optimal/above optimal 130-159 mg/dL, Borderline high 160-189 mg/dL, High >189 mg/dL, Very high Secondary prevention optimal LDL Cholesterol levels are recommended to be < 70 mg/dL Performed By: #### L IPB #### [facility] [address] [place], [place] [address] Cholesterol mass conc 225 mg/dL High <200 [facility] Comment on above: Result Comment: <200 mg/dL, Desirable 200-239 mg/dL, Borderline high >239 mg/dL, High Performed By: #### L IPB #### [place] [id number] [place] [address] Fasting Time 2 hrs Normal [facility] Comment on above: Performed By: #### L IPB #### [place] [address] LDL:HDL Ratio 3.20 High <2.54 [facility] Comment on above: Result Comment: Refe rence: 1. National Cholesterol Education Program ATP III Guideline At-A-Glance Quick Desk Reference: National Heart, Lung, and Blood [place]. National Institutes of Health. 2001: NIH Publication No. 01-3305. 2. An International Atherosclerosis Society position paper: global recommendations for the management of dyslipidemia: executive summary, Atherosclerosis. 2014: 232(2):410-413. Performed By: #### L IPB #### [place] [phone] Non HDL Cholesterol 176 mg/dL High <130 [facility] Comment on above: Result Comment: <130 mg/dL, Optimal 130-159 mg/dL, Near optimal/above optimal 160-189 mg/dL, Borderline high 190-219 mg/dL, High >219 mg/dL, Very high Secondary prevention optimal non HDL Cholesterol levels are recommended to be < 100 mg/dL Performed By: #### L IPB #### [place] [id number] [place] [address] TC:HDL Ratio 4.59 Normal <5.10 [facility] Comment on above: Performed By: #### L IPB #### [place] [address] [place] [address] Triglyceride mass conc 97 mg/dL Normal <150 [facility] Comment on above: Result Comment: <150 mg/dL, Normal 150-199 mg/dL, Borderline high 200-499 mg/dL, High >499 mg/dL, Very high Performed By: #### L IPB #### [facility] [address] [place], [place] [address] VLDL Cholesterol 19 mg/dL Normal <30 [facility] Comment on above: Performed By: #### L IPB #### [facility] [address] [place], [place] [address] HAYLEE SCREENINGon 07-20-2017 HAYLEE SCREENING * * *Final Report* * * DATE OF EXAM: Jul 20 2017 8:44AM [facility] 0581 - [facility] SCREENING / PROCEDURE REASON: Encounter for screening mammogram for malignant neoplasm of breast * * * * Physician Interpretation * * * * RESULT: #[id number] - [facility] SCREENING BILATERAL DIGITAL SCREENING MAMMOGRAM WITH CAD: [...] made to exams dated: 03/11/2016 mammogram - [facility] and 12/19/2014 mammogram - [facility]. There are scattered fibroglandular elements in both breasts. No significant masses, calcifications, or other findings are seen in either breast. There has been no significant interval change. IMPRESSION: NEGATIVE There is no mammographic evidence of malignancy.A 1 year screening mammogram is recommended. Nilay Jaime M.D. cp/madeline:07/20/2017 09:15:21 Brake Assembler: Brielle HOPKINS(R)(M), [facility] letter sent: Normal over 40 Mammogram BI-RADS: 1 Negative Study Abroad Coordinator: Madeline Transcribe Date/Time: Jul 20 2017 8:46A Dictated by: NILAY JAIME MD This examination was interpreted and the report reviewed and electronically signed by: NILAY JAIME MD on Jul 20 2017 9:15AM EST [id number] [facility] CNOVon 02-09-2017 CNOV Office Visit (AGCMARILINWST) LACY REDDY ([id number]) 1950 FDate Time Provider Qeujydmdxq18/9/17 9:00 AM CHRIS YAO During your visit today, we recorded the following information about you: Pulse Blood pressure Weight 88/minute 136/74 78.1 kgChris Yao MD 02/09/2017 5:28 PM SignedPERTINENT CARDIAC HISTORYSydenham HospitalLINICAL IMPRESSION/PLAN:Lacy Alvarado is doing well. She's [...] with treatment plan.This note was generated using [employer] voice recognition system, and there may besome [...] LDL has improved to 118.Electronically Signed:Chris Yao [facility] 2016 9:06 [facility]: JANAE Fincheferring Provider: SHAD BRISENO [[id number]]Allergies As of Date: 02/09/2017 Noted Allergy ReactionSEASONAL [...] CAPSULE,MANDIE* Take 1 capsule by mouth twice* CMHTIXBM-KKZCXAOAW-GOJUH NIRU * Use 3 Drops in the [...] SmartForms filed during this visit:Extended VitalsEncounter Number: [id number] Status:Closed by CHRIS YAO MD on 02/09/17 [facility] PROGRESSon 02-09-2017 PROGRESS HNO ID: [id number]: Chris Pelayo: (none)Author Type: PhysicianType: Progress NotesFiled: 02/09/2017 5:28 PMNote Text:PERTINENT CARDIAC HISTORYChest painHLHTNDLINICAL IMPRESSION/PLAN:Lacy Alvarado is doing well. She's been [...] with treatment plan.This note was generated using [employer] voice recognition system, and theremay be some [...] LDL has improved to 118.Electronically Signed:Chris Yao [facility]ym[facility] 2016 9:06 [facility]: Kasie Pink MD [facility] No Panel Information SARS-CoV-2 & FLU Antigen (Rapid) [facility] Work Phone: S. pyogenes Ag IF Ql (Throat ) S. pyogenes Ag IA Ql (Unsp spec) [facility] Work Phone: Vital Signs Date Time Vital Sign Value Performing Clinician Facility 11-07-2024 11:15040 Body height 157.[address] Mayda Garcia MD Work Phone: [facility] 11-07-2024 11:15-0400 Body mass index (BMI) [Ratio] 31.4 kg/m2 Dr. Mayda Garcia MD Work Phone: [facility] 11-07-2024 11:15-0400 Body temperature 98.2 [degF] Dr. Mayda Garcia MD Work Phone: [facility] 11-07-2024 11:15-0400 Body weight 78.[address] Mayda Garcia MD Work Phone: [facility] 11-07-2024 11:15-0400 Diastolic blood pressure 77 mm[Hg] Dr. Mayda Garcia MD Work Phone: [facility] 11-07-2024 11:15-0400 Heart rate 94 /min Dr. Mayda Garcia MD Work Phone: [facility] 11-07-2024 11:15-0400 Respiratory rate 17 /min Dr. Mayda Garcia MD Work Phone: [facility] 11-07-2024 11:15-0400 SaO2% (BldA) [Mass fraction] 99 % Dr. Mayda Garcia MD Work Phone: [facility] 11-07-2024 11:15-0400 Systolic blood pressure 119 mm[Hg] Dr. Mayda Garcia MD Work Phone: [facility] 10-03-2024 11:23-0400 Body temperature 98.6 [degF] Dr. Mayda Garcia MD Work Phone: [facility] 10-03-2024 11:23-0400 Body weight 78.[address] Mayda Garcia MD Work Phone: [facility] 10-03-2024 11:23-0400 Diastolic blood pressure 79 mm[Hg] Dr. Mayda Garcia MD Work Phone: [facility] 10-03-2024 11:23-0400 Heart rate 88 /min Dr. Mayda Garcia MD Work Phone: [facility] 10-03-2024 11:23-0400 Respiratory rate 17 /min Dr. Mayda Garcia MD Work Phone: [facility] 10-03-2024 11:23-0400 SaO2% (BldA) [Mass fraction] 98 % Dr. Mayda Garcia MD Work Phone: [facility] 10-03-2024 11:23-0400 Systolic blood pressure 139 mm[Hg] Dr. Mayda Garcia MD Work Phone: [facility] 09-28-2024 08:21-0400 Body mass index (BMI) [Ratio] 30.9 kg/m2 Dr. Mayda Garcia MD Work Phone: [facility] 09-28-2024 08:21-0400 Body temperature 97.4 [degF] Dr. Mayda Garcia MD Work Phone: [facility] 09-28-2024 08:21-0400 Body weight 76.[address] Mayda Garcia MD Work Phone: [facility] 09-28-2024 08:21-0400 Diastolic blood pressure 77 mm[Hg] Dr. Mayda Garcia MD Work Phone: [facility] 09-28-2024 08:21-0400 Heart rate 78 /min Dr. Mayda Garcia MD Work Phone: [facility] 09-28-2024 08:21-0400 Respiratory rate 18 /min Dr. Mayda Garcia MD Work Phone: [facility] 09-28-2024 08:21-0400 SaO2% (BldA) [Mass fraction] 99 % Dr. Mayda Garcia MD Work Phone: [facility] [facility] 09-28-2024 08:21-0400 Systolic blood pressure 148 mm[Hg] Dr. Mayda Garcia MD Work Phone: [facility] 09-21-2024 11:14-0400 Body height 157.[address] Mayda Garcia MD Work Phone: [facility] 09-21-2024 11:14-0400 Body mass index (BMI) [Ratio] 31.1 kg/m2 Dr. Mayda Garcia MD Work Phone: [facility] 09-21-2024 11:14-0400 Body temperature 96 [degF] Dr. Mayda Garcia MD Work Phone: [facility] 09-21-2024 11:14-0400 Body weight 77.[address] Mayda Garcia MD Work Phone: [facility] 09-21-2024 11:14-0400 Diastolic blood pressure 76 mm[Hg] Dr. Mayda Garcia MD Work Phone: [facility] 09-21-2024 11:14-0400 Heart rate 100 /min Dr. Mayda Garcia MD Work Phone: [facility] 09-21-2024 11:14-0400 Respiratory rate 16 /min Dr. Mayda Garcia MD Work Phone: [facility] 09-21-2024 11:14-0400 SaO2% (BldA) [Mass fraction] 97 % Dr. Mayda Garcia MD Work Phone: [facility] 09-21-2024 11:14-0400 Systolic blood pressure 126 mm[Hg] Dr. Mayda Garcia MD Work Phone: [facility] 09-19-2024 07:29-0400 Body mass index (BMI) [Ratio] 0.1 kg/m2 Dr. Mayda Garcia MD Work Phone: [facility] 09-19-2024 07:29-0400 Body weight 0.[address] Mayda Garcia MD Work Phone: [facility] 09-19-2024 07:29-0400 Diastolic blood pressure 82 mm[Hg] Dr. Mayda Garcia MD Work Phone: [facility] 09-19-2024 07:29-0400 Heart rate 91 /min Dr. Mayda Garcia MD Work Phone: [facility] 09-19-2024 07:29-0400 Respiratory rate 18 /min Dr. Mayda Garcia MD Work Phone: [facility] 09-19-2024 07:29-0400 SaO2% (BldA) [Mass fraction] 95 % Dr. Mayda Garcia MD Work Phone: [facility] 09-19-2024 07:29-0400 Systolic blood pressure 125 mm[Hg] Dr. Mayda Garcia MD Work Phone: [facility] 09-16-2024 19:40-0400 Body temperature 98.2 [degF] Dr. Mayda Garcia MD Work Phone: [facility] 09-16-2024 19:40-0400 Diastolic blood pressure 83 mm[Hg] Dr. Mayda Garcia MD Work Phone: [facility] 09-16-2024 19:40-0400 Heart rate 78 /min Dr. Mayda Garcia MD Work Phone: [facility] 09-16-2024 19:40-0400 Respiratory rate 24 /min Dr. Mayda Garcia MD Work Phone: [facility] 09-16-2024 19:40-0400 SaO2% (BldA) [Mass fraction] 99 % Dr. Mayda Garcia MD Work Phone: [facility] 09-16-2024 19:40-0400 Systolic blood pressure 137 mm[Hg] Dr. Mayda Garcia MD Work Phone: [facility] 09-16-2024 15:08-0400 Body height 157.[address] Mayda Garcia MD Work Phone: [facility] 08-10-2024 11:01-0400 Body mass index (BMI) [Ratio] 30.3 kg/m2 Dr. Mayda Garcia MD Work Phone: [facility] 08-10-2024 11:01-0400 Body temperature 97 [degF] Dr. Mayda Garcia MD Work Phone: [facility] 08-10-2024 11:01-0400 Body weight 75.[address] Mayda Garcia MD Work Phone: [facility] 08-10-2024 11:01-0400 Diastolic blood pressure 60 mm[Hg] Dr. Mayda Garcia MD Work Phone: [facility] 08-10-2024 11:01-0400 Heart rate 93 /min Dr. Mayda Garcia MD Work Phone: [facility] 08-10-2024 11:01-0400 Respiratory rate 16 /min Dr. Mayda Garcia MD Work Phone: [facility] 08-10-2024 11:01-0400 SaO2% (BldA) [Mass fraction] 97 % Dr. Mayda Garcia MD Work Phone: [facility] 08-10-2024 11:01-0400 Systolic blood pressure 108 mm[Hg] Dr. Mayda Garcia MD Work Phone: [facility] 07-15-2024 16:16-0400 Body temperature 97.6 [degF] Dr. Mayda Garcia MD Work Phone: [facility] 07-15-2024 16:16-0400 Diastolic blood pressure 79 mm[Hg] Dr. Mayda Garcia MD Work Phone: [facility] 07-15-2024 16:16-0400 Heart rate 98 /min Dr. Mayda Garcia MD Work Phone: [facility] 07-15-2024 16:16-0400 Respiratory rate 18 /min Dr. Mayda Garcia MD Work Phone: [facility] 07-15-2024 16:16-0400 SaO2% (BldA) [Mass fraction] 99 % Dr. Mayda Garcia MD Work Phone: [facility] 07-15-2024 16:16-0400 Systolic blood pressure 161 mm[Hg] Dr. Mayda Garcia MD Work Phone: [facility] 07-15-2024 12:12-0400 Body height 157.[address] Mayda Garcia MD Work Phone: [facility] 07-15-2024 12:12-0400 Body mass index (BMI) [Ratio] 30.6 kg/m2 Dr. Mayda Garcia MD Work Phone: [facility] 07-15-2024 12:12-0400 Body weight 75.[address] Mayda Garcia MD Work Phone: [facility] 07-14-2024 20:20-0400 Body temperature 97.9 [degF] Dr. Mayda Garcia MD Work Phone: [facility] 07-14-2024 20:20-0400 Diastolic blood pressure 80 mm[Hg] Dr. Mayda Garcia MD Work Phone: [facility] 07-14-2024 20:20-0400 Heart rate 85 /min Dr. Mayda Garcia MD Work Phone: [facility] 07-14-2024 20:20-0400 Respiratory rate 17 /min Dr. Mayda Garcia MD Work Phone: [facility] 07-14-2024 20:20-0400 SaO2% (BldA) [Mass fraction] 98 % Dr. Mayda Garcia MD Work Phone: [facility] 07-14-2024 20:20-0400 Systolic blood pressure 107 mm[Hg] Dr. Mayda Garcia MD Work Phone: [facility] 07-14-2024 16:18-0400 Body height 157.[address] Mayda Garcia MD Work Phone: [facility] 07-14-2024 16:18-0400 Body mass index (BMI) [Ratio] 30.7 kg/m2 Dr. Mayda Garcia MD Work Phone: [facility] 07-14-2024 16:18-0400 Body weight 76.[address] Mayda Garcia MD Work Phone: [facility] 07-05-2024 10:56-0500 Body mass index (BMI) [Ratio] 30.7 kg/m2 Dr. Mayda Garcia MD Work Phone: [facility] 07-05-2024 10:56-0500 Body temperature 98.6 [degF] Dr. Mayda Garcia MD Work Phone: [facility] 07-05-2024 10:56-0500 Body weight 76.[address] Mayda Garcia MD Work Phone: [facility] 07-05-2024 10:56-0500 Diastolic blood pressure 70 mm[Hg] Dr. Mayda Garcia MD Work Phone: [facility] 07-05-2024 10:56-0500 Heart rate 104 /min Dr. Mayda Garcia MD Work Phone: [facility] 07-05-2024 10:56-0500 Respiratory rate 17 /min Dr. Mayda Garcia MD Work Phone: [facility] 07-05-2024 10:56-0500 SaO2% (BldA) [Mass fraction] 98 % Dr. Mayda Garcia MD Work Phone: [facility] 07-05-2024 10:56-0500 Systolic blood pressure 130 mm[Hg] Dr. Mayda Garcia MD Work Phone: [facility] 05-20-2024 09:36-0500 Body mass index (BMI) [Ratio] 30.9 kg/m2 Dr. Mayda Garcia MD Work Phone: [facility] 05-20-2024 09:36-0500 Body temperature 97.6 [degF] Dr. Mayda Garcia MD Work Phone: [facility] 05-20-2024 09:36-0500 Body weight 76.[address] Mayda Garcia MD Work Phone: [facility] 05-20-2024 09:36-0500 Diastolic blood pressure 78 mm[Hg] Dr. Mayda Garcia MD Work Phone: [facility] 05-20-2024 09:36-0500 Heart rate 98 /min Dr. Mayda Garcia MD Work Phone: [facility] 05-20-2024 09:36-0500 Respiratory rate 16 /min Dr. Mayda Garcia MD Work Phone: [facility] 05-20-2024 09:36-0500 SaO2% (BldA) [Mass fraction] 99 % Dr. Mayda Garcia MD Work Phone: [facility] 05-20-2024 09:36-0500 Systolic blood pressure 142 mm[Hg] Dr. Mayda Garcia MD Work Phone: [facility] 05-16-2024 09:40-0500 Body mass index (BMI) [Ratio] 31.6 kg/m2 Dr. Mayda Garcia MD Work Phone: [facility] 05-16-2024 09:40-0500 Body temperature 98.4 [degF] Dr. Mayda Garcia MD Work Phone: [facility] 05-16-2024 09:40-0500 Body weight 78.[address] Mayda Garcia MD Work Phone: [facility] 05-16-2024 09:40-0500 Diastolic blood pressure 70 mm[Hg] Dr. Mayda Garcia MD Work Phone: [facility] 05-16-2024 09:40-0500 Heart rate 89 /min Dr. Mayda Garcia MD Work Phone: [facility] 05-16-2024 09:40-0500 Respiratory rate 16 /min Dr. Mayda Garcia MD Work Phone: [facility] 05-16-2024 09:40-0500 SaO2% (BldA) [Mass fraction] 99 % Dr. Mayda Garcia MD Work Phone: [facility] 05-16-2024 09:40-0500 Systolic blood pressure 116 mm[Hg] Dr. Mayda Garcia MD Work Phone: [facility] 04-21-2024 10:56-0500 Body mass index (BMI) [Ratio] 30.9 kg/m2 Dr. Mayda Garcia MD Work Phone: [facility] 04-21-2024 10:56-0500 Body temperature 98.4 [degF] Dr. Mayda Garcia MD Work Phone: [facility] 04-21-2024 10:56-0500 Body weight 76.[address] Mayda Garcia MD Work Phone: [facility] 04-21-2024 10:56-0500 Diastolic blood pressure 72 mm[Hg] Dr. Mayda Garcia MD Work Phone: [facility] 04-21-2024 10:56-0500 Heart rate 111 /min Dr. Mayda Garcia MD Work Phone: [facility] 04-21-2024 10:56-0500 Respiratory rate 17 /min Dr. Mayda Garcia MD Work Phone: [facility] 04-21-2024 10:56-0500 SaO2% (BldA) [Mass fraction] 97 % Dr. Mayda Garcia MD Work Phone: [facility] 04-21-2024 10:56-0500 Systolic blood pressure 130 mm[Hg] Dr. Mayda Garcia MD Work Phone: [facility] 04-20-2024 12:38-0500 Body weight 76.[address] Mayda Garcia MD Work Phone: [facility] 04-20-2024 12:38-0500 Heart rate 106 /min Dr. Mayda Garcia MD Work Phone: [facility] 04-20-2024 12:38-0500 SaO2% (BldA) [Mass fraction] 97 % Dr. Mayda Garcia MD Work Phone: [facility] 04-19-2024 10:25-0500 Body mass index (BMI) [Ratio] 30.9 kg/m2 Dr. Mayda Garcia MD Work Phone: [facility] 04-19-2024 10:25-0500 Body weight 76.[address] Mayda Garcia MD Work Phone: [facility] 04-19-2024 10:25-0500 Diastolic blood pressure 62 mm[Hg] Dr. Mayda Garcia MD Work Phone: [facility] 04-19-2024 10:25-0500 Heart rate 97 /min Dr. Mayda Garcia MD Work Phone: [facility] 04-19-2024 10:25-0500 Respiratory rate 16 /min Dr. Mayda Garcia MD Work Phone: [facility] 04-19-2024 10:25-0500 Systolic blood pressure 115 mm[Hg] Dr. Mayda Garcia MD Work Phone: [facility] 08-03-2023 00:11-0400 Body weight 75.[address] Mayda Garcia Work Phone: [facility] 07-29-2023 08:29-0400 Body height 157.[address] Mayda Garcia Work Phone: [facility] 07-29-2023 08:29-0400 Body weight 75.[address] Mayda Garcia Work Phone: [facility] 07-23-2023 10:50-0400 Body height 157.[address] Mayda Garcia Work Phone: [facility] 07-23-2023 10:50-0400 Body mass index (BMI) [Ratio] 30.2 kg/m2 Dr. Mayda Garcia Work Phone: [facility] 07-23-2023 10:50-0400 Body temperature 97.8 [degF] Dr. Mayda Garcia Work Phone: [facility] 07-23-2023 10:50-0400 Body weight 74.[address] Mayda Garcia Work Phone: [facility] 07-23-2023 10:50-0400 Diastolic blood pressure 76 mm[Hg] Dr. Mayda Garcia Work Phone: [facility] 07-23-2023 10:50-0400 Heart rate 96 /min Dr. Mayda Garcia Work Phone: [facility] 07-23-2023 10:50-0400 Respiratory rate 17 /min Dr. Mayda Garcia Work Phone: [facility] 07-23-2023 10:50-0400 SaO2% (BldA) [Mass fraction] 99 % Dr. Mayda Garcia Work Phone: [facility] 07-23-2023 10:50-0400 Systolic blood pressure 118 mm[Hg] Dr. Mayda Garcia Work Phone: [facility] 07-20-2023 13:17-0400 Body mass index (BMI) [Ratio] 30.9 kg/m2 Dr. Mayda Garcia Work Phone: [facility] 07-20-2023 13:17-0400 Body temperature 97.8 [degF] Dr. Mayda Garcia Work Phone: [facility] 07-20-2023 13:17-0400 Body weight 76.[address] Mayda Garcia Work Phone: [facility] 07-20-2023 13:17-0400 Diastolic blood pressure 68 mm[Hg] Dr. Mayda Garcia Work Phone: [facility] 07-20-2023 13:17-0400 Heart rate 88 /min Dr. Mayda Garcia Work Phone: [facility] 07-20-2023 13:17-0400 Respiratory rate 17 /min Dr. Mayda Garcia Work Phone: [facility] 07-20-2023 13:17-0400 SaO2% (BldA) [Mass fraction] 99 % Dr. Mayda Garcia Work Phone: [facility] 07-20-2023 13:17-0400 Systolic blood pressure 118 mm[Hg] Dr. Mayda Garcia Work Phone: [facility] 07-03-2023 00:06-0500 Body weight 73.[address] Mayda Garcia Work Phone: [facility] 07-01-2023 09:13-0500 Body height 157.[address] Mayda Garcia Work Phone: [facility] 07-01-2023 09:13-0500 Body weight 73.[address] Mayda Garcia Work Phone: [facility] 06-17-2023 10:16-0500 Body height 157.[address] Mayda Garcia Work Phone: [facility] 06-17-2023 10:16-0500 Body mass index (BMI) [Ratio] 28.8 kg/m2 Dr. Mayda Garcia Work Phone: [facility] 06-17-2023 10:16-0500 Body temperature 97.4 [degF] Dr. Mayda Garcia Work Phone: [facility] 06-17-2023 10:16-0500 Body weight 71.[address] Mayda Garcia Work Phone: [facility] 06-17-2023 10:16-0500 Diastolic blood pressure 82 mm[Hg] Dr. Mayda Garcia Work Phone: [facility] 06-17-2023 10:16-0500 Heart rate 93 /min Dr. Mayda Garcia Work Phone: [facility] 06-17-2023 10:16-0500 Respiratory rate 16 /min Dr. Mayda Garcia Work Phone: [facility] 06-17-2023 10:16-0500 SaO2% (BldA) [Mass fraction] 98 % Dr. Mayda Garcia Work Phone: [facility] 06-17-2023 10:16-0500 Systolic blood pressure 126 mm[Hg] Dr. Mayda Garcia Work Phone: [facility] 06-10-2023 07:48-0500 Body mass index (BMI) [Ratio] 29.4 kg/m2 Dr. Mayda Garcia Work Phone: [facility] 06-10-2023 07:48-0500 Body temperature 98 [degF] Dr. Mayda Garcia Work Phone: [facility] 06-10-2023 07:48-0500 Body weight 73.[address] Mayda Garcia Work Phone: [facility] 06-10-2023 07:48-0500 Diastolic blood pressure 90 mm[Hg] Dr. Mayda Garcia Work Phone: [facility] 06-10-2023 07:48-0500 Heart rate 79 /min Dr. Mayda Garcia Work Phone: [facility] 06-10-2023 07:48-0500 Respiratory rate 20 /min Dr. Mayda Garcia Work Phone: [facility] 06-10-2023 07:48-0500 SaO2% (BldA) [Mass fraction] 99 % Dr. Mayda Garcia Work Phone: [facility] 06-10-2023 07:48-0500 Systolic blood pressure 171 mm[Hg] Dr. Mayda Garcia Work Phone: [facility] 06-01-2023 10:05-0500 Body mass index (BMI) [Ratio] 29.8 kg/m2 Dr. Mayda Garcia Work Phone: [facility] 06-01-2023 10:05-0500 Body weight 73.[address] Mayda Garcia Work Phone: [facility] 06-01-2023 10:05-0500 Diastolic blood pressure 64 mm[Hg] Dr. Mayda Garcia Work Phone: [facility] 06-01-2023 10:05-0500 Systolic blood pressure 104 mm[Hg] Dr. Mayda Garcia Work Phone: [facility] 06-01-2023 09:57-0500 Heart rate 101 /min Dr. Mayda Garcia Work Phone: [facility] 06-01-2023 09:57-0500 SaO2% (BldA) [Mass fraction] 97 % Dr. Mayda Garcia Work Phone: [facility] 06-01-2023 09:50-0500 Body height 157.[address] Mayda Garcia Work Phone: [facility] 05-18-2023 10:38-0500 Body temperature 98 [degF] Dr. Mayda Garcia Work Phone: [facility] 05-18-2023 10:38-0500 Diastolic blood pressure 70 mm[Hg] Dr. Mayda Garcia Work Phone: [facility] 05-18-2023 10:38-0500 Heart rate 70 /min Dr. Mayda Garcia Work Phone: [facility] 05-18-2023 10:38-0500 Respiratory rate 15 /min Dr. Mayda Garcia Work Phone: [facility] 05-18-2023 10:38-0500 SaO2% (BldA) [Mass fraction] 98 % Dr. Mayda Garcia Work Phone: [facility] 05-18-2023 10:38-0500 Systolic blood pressure 120 mm[Hg] Dr. Mayda Garcia Work Phone: [facility] 04-16-2023 11:43-0500 Body temperature 97.7 [degF] Dr. Mayda Garcia Work Phone: [facility] 04-16-2023 11:43-0500 Body weight 75.[address] Mayda Garcia Work Phone: [facility] 04-16-2023 11:43-0500 Diastolic blood pressure 70 mm[Hg] Dr. Mayda Garcia Work Phone: [facility] 04-16-2023 11:43-0500 Heart rate 99 /min Dr. Mayda Garcia Work Phone: [facility] 04-16-2023 11:43-0500 Respiratory rate 16 /min Dr. Mayda Garcia Work Phone: [facility] 04-16-2023 11:43-0500 SaO2% (BldA) [Mass fraction] 99 % Dr. Mayda Garcia Work Phone: [facility] 04-16-2023 11:43-0500 Systolic blood pressure 130 mm[Hg] Dr. Mayda Garcia Work Phone: [facility] 03-19-2023 09:50-0500 Body height 157.[address] Mayda Garcia Work Phone: [facility] 03-19-2023 09:50-0500 Body mass index (BMI) [Ratio] 29.8 kg/m2 Dr. Mayda Garcia Work Phone: [facility] 03-19-2023 09:50-0500 Body weight 73.[address] Mayda Garcia Work Phone: [facility] 03-19-2023 09:50-0500 Diastolic blood pressure 60 mm[Hg] Dr. Mayda Garcia Work Phone: [facility] 03-19-2023 09:50-0500 Heart rate 92 /min Dr. Mayda Garcia Work Phone: [facility] 03-19-2023 09:50-0500 Respiratory rate 16 /min Dr. Mayda Garcia Work Phone: [facility] 03-19-2023 09:50-0500 Systolic blood pressure 98 mm[Hg] Dr. Mayda Garcia Work Phone: [facility] 03-16-2023 14:11-0500 Body mass index (BMI) [Ratio] 30.4 kg/m2 Dr. Mayda Garcia Work Phone: [facility] 03-16-2023 14:11-0500 Body temperature 97.1 [degF] Dr. Mayda Garcia Work Phone: [facility] 03-16-2023 14:11-0500 Body weight 75.[address] Madya Garcia Work Phone: [facility] 03-16-2023 14:11-0500 Diastolic blood pressure 62 mm[Hg] Dr. Mayda Garcia Work Phone: [facility] 03-16-2023 14:11-0500 Heart rate 102 /min Dr. Mayda Garcia Work Phone: [facility] 03-16-2023 14:11-0500 Respiratory rate 15 /min Dr. Mayda Garcia Work Phone: [facility] 03-16-2023 14:11-0500 SaO2% (BldA) [Mass fraction] 97 % Dr. Mayda Garcia Work Phone: [facility] 03-16-2023 14:11-0500 Systolic blood pressure 118 mm[Hg] Dr. Mayda Garcia Work Phone: [facility] 03-16-2023 13:21-0500 Body mass index (BMI) [Ratio] 30.5 kg/m2 Dr. Mayda Garcia Work Phone: [facility] 03-16-2023 13:21-0500 Body temperature 98.2 [degF] Dr. Mayda Garcia Work Phone: [facility] 03-16-2023 13:21-0500 Body weight 75.[address] Mayda Garcia Work Phone: [facility] 03-16-2023 13:21-0500 Diastolic blood pressure 63 mm[Hg] Dr. Mayda Garcia Work Phone: [facility] 03-16-2023 13:21-0500 Heart rate 82 /min Dr. Mayda Garcia Work Phone: [facility] 03-16-2023 13:21-0500 Respiratory rate 14 /min Dr. Mayda Garcia Work Phone: [facility] 03-16-2023 13:21-0500 SaO2% (BldA) [Mass fraction] 99 % Dr. Mayda Garcia Work Phone: [facility] 03-16-2023 13:21-0500 Systolic blood pressure 120 mm[Hg] Dr. Mayda Garcia Work Phone: [facility] 02-18-2023 10:07-0400 Body height 157.[address] Mayda Garcia Work Phone: [facility] 02-18-2023 10:07-0400 Body mass index (BMI) [Ratio] 30.5 kg/m2 Dr. Mayda Garcia Work Phone: [facility] 02-18-2023 10:07-0400 Body weight 75.[address] Mayda Garcia Work Phone: [facility] 02-18-2023 10:07-0400 Diastolic blood pressure 76 mm[Hg] Dr. Mayda Garcia Work Phone: [facility] 02-18-2023 10:07-0400 Heart rate 103 /min Dr. Mayda Garcia Work Phone: [facility] 02-18-2023 10:07-0400 Respiratory rate 18 /min Dr. Mayda Garcia Work Phone: [facility] 02-18-2023 10:07-0400 Systolic blood pressure 114 mm[Hg] Dr. Mayda Garcia Work Phone: [facility] 02-11-2023 11:01-0400 Body mass index (BMI) [Ratio] 29.5 kg/m2 Dr. Mayda Garcia Work Phone: [facility] 02-11-2023 11:01-0400 Body temperature 98.4 [degF] Dr. Mayda Garcia Work Phone: [facility] 02-11-2023 11:01-0400 Body weight 73.[address] Mayda Garcia Work Phone: [facility] 02-11-2023 11:01-0400 Diastolic blood pressure 70 mm[Hg] Dr. Mayda Garcia Work Phone: [facility] 02-11-2023 11:01-0400 Heart rate 90 /min Dr. Mayda Garcia Work Phone: [facility] 02-11-2023 11:01-0400 Respiratory rate 17 /min Dr. Mayda Garcia Work Phone: [facility] 02-11-2023 11:01-0400 SaO2% (BldA) [Mass fraction] 96 % Dr. Mayda Garcia Work Phone: [facility] 02-11-2023 11:01-0400 Systolic blood pressure 110 mm[Hg] Dr. Mayda Garcia Work Phone: [facility] 02-04-2023 10:53-0400 Body mass index (BMI) [Ratio] 30.5 kg/m2 Dr. Mayda Garcia Work Phone: [facility] 02-04-2023 10:53-0400 Body temperature 97.6 [degF] Dr. Mayda Garcia Work Phone: [facility] 02-04-2023 10:53-0400 Body weight 75.[address] Mayda Garcia Work Phone: [facility] 02-04-2023 10:53-0400 Diastolic blood pressure 80 mm[Hg] Dr. Mayda Garcia Work Phone: [facility] 02-04-2023 10:53-0400 Heart rate 91 /min Dr. Mayda Garcia Work Phone: [facility] 02-04-2023 10:53-0400 Respiratory rate 16 /min Dr. Mayda Garcia Work Phone: [facility] 02-04-2023 10:53-0400 SaO2% (BldA) [Mass fraction] 98 % Dr. Mayda Garcia Work Phone: [facility] 02-04-2023 10:53-0400 Systolic blood pressure 124 mm[Hg] Dr. Mayda Garcia Work Phone: [facility] 01-26-2023 11:37-0400 Body temperature 98.3 [degF] Dr. Mayda Garcia Work Phone: [facility] 01-26-2023 11:37-0400 Diastolic blood pressure 67 mm[Hg] Dr. Mayda Garcia Work Phone: [facility] 01-26-2023 11:37-0400 Heart rate 86 /min Dr. Mayda Garcia Work Phone: [facility] 01-26-2023 11:37-0400 Respiratory rate 18 /min Dr. Mayda Garcia Work Phone: [facility] 01-26-2023 11:37-0400 SaO2% (BldA) [Mass fraction] 98 % Dr. Mayda Garcia Work Phone: [facility] 01-26-2023 11:37-0400 Systolic blood pressure 107 mm[Hg] Dr. Mayda Garcia Work Phone: [facility] 01-24-2023 06:00-0400 Body mass index (BMI) [Ratio] 31.3 kg/m2 Dr. Mayda Garcia Work Phone: [facility] 01-24-2023 06:00-0400 Body weight 77.[address] Mayda Garcia Work Phone: [facility] 01-22-2023 06:03-0400 Inhaled oxygen flow rate 2 L/min Dr. Mayda Garcia Work Phone: [facility] 01-21-2023 16:06-0400 Body height 157.[address] Mayda Garcia Work Phone: [facility] 01-11-2023 07:00-0400 Body temperature 98.29 [degF] Azam Rose MD Work Phone: [facility] 01-11-2023 07:00-0400 Diastolic blood pressure 62 mm[Hg] Azam Rose MD Work Phone: [facility] 01-11-2023 07:00-0400 Heart rate 81 /min Azam Rose MD Work Phone: [facility] 01-11-2023 07:00-0400 Respiratory rate 16 /min Azam Rose MD Work Phone: [facility] 01-11-2023 07:00-0400 SaO2% (BldA) [Mass fraction] 96 % Azam Rose MD Work Phone: [facility] 01-11-2023 07:00-0400 Systolic blood pressure 112 mm[Hg] Azam Rose MD Work Phone: [facility] 01-11-2023 04:43-0400 Body mass index (BMI) [Ratio] 31.21 kg/m2 Azam Rose MD Work Phone: [facility] 01-11-2023 04:43-0400 Body weight 77.4 kg Azam Rose MD Work Phone: [facility] 01-02-2023 08:47-0400 Body height 157.5 cm Azam Rose MD Work Phone: [facility] 01-01-2023 10:48-0400 SaO2% (BldA) [Mass fraction] 99.2 % Azam Rose MD Work Phone: [facility] 12-23-2022 10:18-0400 Body height 157.5 cm Azam Rose MD Work Phone: [facility] 12-23-2022 10:18-0400 Body mass index (BMI) [Ratio] 31.17 kg/m2 Azam Rose MD Work Phone: [facility] 12-23-2022 10:18-0400 Body weight 77.29 kg Azam Rose MD Work Phone: [facility] 12-23-2022 10:18-0400 Diastolic blood pressure 78 mm[Hg] Azam Rose MD Work Phone: [facility] 12-23-2022 10:18-0400 Heart rate 91 /min Azam Rose MD Work Phone: [facility] 12-23-2022 10:18-0400 Systolic blood pressure 140 mm[Hg] Azam Rose MD Work Phone: [facility] 12-19-2022 14:00-0400 Body temperature 97.2 [degF] Dr. Mayda Garcia Work Phone: [facility] 12-19-2022 14:00-0400 Diastolic blood pressure 69 mm[Hg] Dr. Mayda Garcia Work Phone: [facility] 12-19-2022 14:00-0400 Heart rate 92 /min Dr. Mayda Garcia Work Phone: [facility] 12-19-2022 14:00-0400 Respiratory rate 18 /min Dr. Mayda Garcia Work Phone: [facility] 12-19-2022 14:00-0400 SaO2% (BldA) [Mass fraction] 100 % Dr. Mayda Garcia Work Phone: [facility] 12-19-2022 14:00-0400 Systolic blood pressure 140 mm[Hg] Dr. Mayda Garcia Work Phone: [facility] 12-18-2022 10:26-0400 Body height 157.[address] Mayda Garcia Work Phone: [facility] 12-18-2022 10:26-0400 Body mass index (BMI) [Ratio] 31.4 kg/m2 Dr. Mayda Garcia Work Phone: [facility] 12-18-2022 10:26-0400 Body weight 77.[address] Mayda Garcia Work Phone: [facility] 12-18-2022 10:00-0400 Respiratory rate 18 /min Dr. Mayda Garcia Work Phone: [facility] 12-18-2022 09:15-0400 Body temperature 98.1 [degF] Dr. Mayda Garcia Work Phone: [facility] 12-18-2022 09:15-0400 Diastolic blood pressure 72 mm[Hg] Dr. Mayda Garcia Work Phone: [facility] 12-18-2022 09:15-0400 Heart rate 74 /min Dr. Mayda Garcia Work Phone: [facility] 12-18-2022 09:15-0400 SaO2% (BldA) [Mass fraction] 95 % Dr. Mayda Garcia Work Phone: [facility] 12-18-2022 09:15-0400 Systolic blood pressure 148 mm[Hg] Dr. Mayda Garcia Work Phone: [facility] 12-18-2022 05:23-0400 Body height 187.[address] Mayda Garcia Work Phone: [facility] 12-18-2022 05:23-0400 Body mass index (BMI) [Ratio] 22.4 kg/m2 Dr. Mayda Garcia Work Phone: [facility] 12-18-2022 05:23-0400 Body weight 79.[address] Mayda Garcia Work Phone: [facility] 12-11-2022 14:43-0400 Body mass index (BMI) [Ratio] 30.9 kg/m2 Dr. Mayda Garcia Work Phone: [facility] 12-11-2022 14:43-0400 Body temperature 98.3 [degF] Dr. Mayda Garcia Work Phone: [facility] 12-11-2022 14:43-0400 Body weight 76.[address] Mayda Garcia Work Phone: [facility] 12-11-2022 14:43-0400 Diastolic blood pressure 76 mm[Hg] Dr. Mayda Garcia Work Phone: [facility] 12-11-2022 14:43-0400 Heart rate 97 /min Dr. Mayda Garcia Work Phone: [facility] 12-11-2022 14:43-0400 Respiratory rate 16 /min Dr. Mayda Garcia Work Phone: [facility] 12-11-2022 14:43-0400 SaO2% (BldA) [Mass fraction] 97 % Dr. Mayda Garcia Work Phone: [facility] 12-11-2022 14:43-0400 Systolic blood pressure 124 mm[Hg] Dr. Mayda Garcia Work Phone: [facility] 11-19-2022 14:56-0400 Body mass index (BMI) [Ratio] 31.7 kg/m2 Dr. Mayda Garcia Work Phone: [facility] 11-19-2022 14:56-0400 Body temperature 97.7 [degF] Dr. Mayda Garcia Work Phone: [facility] 11-19-2022 14:56-0400 Body weight 78.[address] Mayda Garcia Work Phone: [facility] 11-19-2022 14:56-0400 Diastolic blood pressure 78 mm[Hg] Dr. Mayda Garcia Work Phone: [facility] 11-19-2022 14:56-0400 Heart rate 90 /min Dr. Mayda Garcia Work Phone: [facility] 11-19-2022 14:56-0400 Respiratory rate 14 /min Dr. Mayda Garcia Work Phone: [facility] 11-19-2022 14:56-0400 SaO2% (BldA) [Mass fraction] 98 % Dr. Mayda Garcia Work Phone: [facility] 11-19-2022 14:56-0400 Systolic blood pressure 130 mm[Hg] Dr. Mayda Garcia Work Phone: [facility] 10-10-2022 11:04-0400 Body height 157.[address] Mayda Garcia Work Phone: [facility] 10-10-2022 11:04-0400 Body mass index (BMI) [Ratio] 31.4 kg/m2 Dr. Mayda Garcia Work Phone: [facility] 10-10-2022 11:04-0400 Body weight 78.[address] Mayda Garcia Work Phone: [facility] 10-03-2022 10:42-0400 Body height 157.[address] Mayda Garcia Work Phone: [facility] 10-03-2022 10:42-0400 Body mass index (BMI) [Ratio] 31.7 kg/m2 Dr. Mayda Garcia Work Phone: [facility] 10-03-2022 10:42-0400 Body temperature 97.1 [degF] Dr. Mayda Garcia Work Phone: [facility] 10-03-2022 10:42-0400 Body weight 78.[address] Mayda Garcia Work Phone: [facility] 10-03-2022 10:42-0400 Diastolic blood pressure 84 mm[Hg] Dr. Mayda Garcia Work Phone: [facility] 10-03-2022 10:42-0400 Heart rate 112 /min Dr. Mayda Garcia Work Phone: [facility] 10-03-2022 10:42-0400 Respiratory rate 18 /min Dr. Mayda Garcia Work Phone: [facility] 10-03-2022 10:42-0400 SaO2% (BldA) [Mass fraction] 98 % Dr. Mayda Garcia Work Phone: [facility] 10-03-2022 10:42-0400 Systolic blood pressure 138 mm[Hg] Dr. Mayda Garcia Work Phone: [facility] 10-02-2022 11:41-0400 Body mass index (BMI) [Ratio] 31.5 kg/m2 Dr. Mayda Garcia Work Phone: [facility] 10-02-2022 11:41-0400 Body temperature 98 [degF] Dr. Mayda Garcia Work Phone: [facility] 10-02-2022 11:41-0400 Body weight 78.[address] Mayda Garcia Work Phone: [facility] 10-02-2022 11:41-0400 Diastolic blood pressure 60 mm[Hg] Dr. Mayda Garcia Work Phone: [facility] 10-02-2022 11:41-0400 Heart rate 91 /min Dr. Mayda Garcia Work Phone: [facility] 10-02-2022 11:41-0400 Respiratory rate 17 /min Dr. Mayda Garcia Work Phone: [facility] 10-02-2022 11:41-0400 SaO2% (BldA) [Mass fraction] 97 % Dr. Mayda Garcia Work Phone: [facility] 10-02-2022 11:41-0400 Systolic blood pressure 118 mm[Hg] Dr. Mayda Garcia Work Phone: [facility] 08-22-2022 15:19-0400 Body mass index (BMI) [Ratio] 32.1 kg/m2 Dr. Mayda Garcia Work Phone: [facility] 08-22-2022 15:19-0400 Body temperature 98 [degF] Dr. Mayda Garcia Work Phone: [facility] 08-22-2022 15:19-0400 Body weight 79.[address] Mayda Garcia Work Phone: [facility] 08-22-2022 15:19-0400 Diastolic blood pressure 72 mm[Hg] Dr. Mayda Garcia Work Phone: [facility] 08-22-2022 15:19-0400 Heart rate 89 /min Dr. Mayda Garcia Work Phone: [facility] 08-22-2022 15:19-0400 Respiratory rate 16 /min Dr. Mayda Garcia Work Phone: [facility] 08-22-2022 15:19-0400 SaO2% (BldA) [Mass fraction] 97 % Dr. Mayda Garcia Work Phone: [facility] 08-22-2022 15:19-0400 Systolic blood pressure 130 mm[Hg] Dr. Mayda Garcia Work Phone: [facility] 08-14-2022 01:11-0400 Diastolic blood pressure 81 mm[Hg] Dr. Mayda Garcia Work Phone: [facility] 08-14-2022 01:11-0400 Heart rate 87 /min Dr. Mayda Garcia Work Phone: [facility] 08-14-2022 01:11-0400 Respiratory rate 17 /min Dr. Mayda Garcia Work Phone: [facility] 08-14-2022 01:11-0400 SaO2% (BldA) [Mass fraction] 100 % Dr. Mayda Garcia Work Phone: [facility] 08-14-2022 01:11-0400 Systolic blood pressure 163 mm[Hg] Dr. Mayda Garcia Work Phone: [facility] 08-13-2022 21:57-0400 Body height 157.[address] Mayda Garcia Work Phone: [facility] 08-13-2022 21:57-0400 Body mass index (BMI) [Ratio] 35.2 kg/m2 Dr. Mayda Garcia Work Phone: [facility] 08-13-2022 21:57-0400 Body temperature 98.2 [degF] Dr. Mayda Garcia Work Phone: [facility] 08-13-2022 21:57-0400 Body weight 87.[address] Mayda Garcia Work Phone: [facility] 06-30-2022 10:56-0500 Body mass index (BMI) [Ratio] 32.1 kg/m2 Dr. Mayda Garcia Work Phone: [facility] 06-30-2022 10:56-0500 Body temperature 98.8 [degF] Dr. Mayda Garcia Work Phone: [facility] 06-30-2022 10:56-0500 Body weight 79.[address] Mayda Garcia Work Phone: [facility] 06-30-2022 10:56-0500 Diastolic blood pressure 80 mm[Hg] Dr. Mayda Garcia Work Phone: [facility] 06-30-2022 10:56-0500 Heart rate 87 /min Dr. Mayda Garcia Work Phone: [facility] 06-30-2022 10:56-0500 Respiratory rate 16 /min Dr. Mayda Garcia Work Phone: [facility] 06-30-2022 10:56-0500 SaO2% (BldA) [Mass fraction] 99 % Dr. Mayda Garcia Work Phone: [facility] 06-30-2022 10:56-0500 Systolic blood pressure 128 mm[Hg] Dr. Mayda Garcia Work Phone: [facility] 06-09-2022 13:30-0500 Body mass index (BMI) [Ratio] 35.6 kg/m2 Dr. Mayda Garcia Work Phone: [facility] 06-09-2022 13:30-0500 Body temperature 98.5 [degF] Dr. Mayda Garcia Work Phone: [facility] 06-09-2022 13:30-0500 Body weight 88.[address] Mayda Garcia Work Phone: [facility] 06-09-2022 13:30-0500 Diastolic blood pressure 74 mm[Hg] Dr. Mayda Garcia Work Phone: [facility] 06-09-2022 13:30-0500 Heart rate 102 /min Dr. Mayda Garcia Work Phone: [facility] 06-09-2022 13:30-0500 Respiratory rate 16 /min Dr. Mayda Garcia Work Phone: [facility] 06-09-2022 13:30-0500 SaO2% (BldA) [Mass fraction] 96 % Dr. Mayda Garcia Work Phone: [facility] 06-09-2022 13:30-0500 Systolic blood pressure 136 mm[Hg] Dr. Mayda Garcia Work Phone: [facility] 06-07-2022 17:41-0500 Body height 157.[address] Mayda Garcia Work Phone: [facility] 06-07-2022 17:41-0500 Body mass index (BMI) [Ratio] 35.6 kg/m2 Dr. Mayda Garcia Work Phone: [facility] 06-07-2022 17:41-0500 Body temperature 97.9 [degF] Dr. Mayda Garcia Work Phone: [facility] 06-07-2022 17:41-0500 Body weight 88.[address] Mayda Garcia Work Phone: [facility] 06-07-2022 17:41-0500 Diastolic blood pressure 85 mm[Hg] Dr. Mayda Garcia Work Phone: [facility] 06-07-2022 17:41-0500 Heart rate 90 /min Dr. Mayda Garcia Work Phone: [facility] 02-04-2023 17:41-0500 Respiratory rate 18 /min Dr. Mayda Garcia Work Phone: [facility] 06-07-2022 17:41-0500 SaO2% (BldA) [Mass fraction] 100 % Dr. Mayda Garcia Work Phone: [facility] 06-07-2022 17:41-0500 Systolic blood pressure 180 mm[Hg] Dr. Mayda Garcia Work Phone: [facility] 06-06-2022 14:05-0500 Respiratory rate 18 /min Dr. Mayda Garcia Work Phone: [facility] 06-06-2022 13:04-0500 Diastolic blood pressure 70 mm[Hg] Dr. Mayda Garcia Work Phone: [facility] 06-06-2022 13:04-0500 Heart rate 79 /min Dr. Mayda Garcia Work Phone: [facility] 06-06-2022 13:04-0500 Systolic blood pressure 133 mm[Hg] Dr. Mayda Garcia Work Phone: [facility] 06-06-2022 12:27-0500 SaO2% (BldA) [Mass fraction] 98 % Dr. Mayda Garcia Work Phone: [facility] 06-06-2022 09:11-0500 Body mass index (BMI) [Ratio] 33.7 kg/m2 Dr. Mayda Garcia Work Phone: [facility] 06-06-2022 09:11-0500 Body temperature 98.1 [degF] Dr. Mayda Garcia Work Phone: [facility] 06-06-2022 09:11-0500 Body weight 83.[address] Madya Garcia Work Phone: [facility] 05-06-2022 13:32-0500 Body temperature 96.2 [degF] Dr. Mayda Garcia Work Phone: [facility] 05-06-2022 13:32-0500 Body weight 80.[address] Mayda Garcia Work Phone: [facility] 05-06-2022 13:32-0500 Diastolic blood pressure 66 mm[Hg] Dr. Mayda Garcia Work Phone: [facility] 05-06-2022 13:32-0500 Heart rate 89 /min Dr. Mayda Garcia Work Phone: [facility] 05-06-2022 13:32-0500 Respiratory rate 16 /min Dr. Mayda Garcia Work Phone: [facility] 05-06-2022 13:32-0500 SaO2% (BldA) [Mass fraction] 96 % Dr. Mayda Garcia Work Phone: [facility] 05-06-2022 13:32-0500 Systolic blood pressure 136 mm[Hg] Dr. Mayda Garcia Work Phone: [facility] 04-02-2022 11:18-0500 Body height 157.[address] Mayda Garcia Work Phone: [facility] 04-02-2022 11:18-0500 Body mass index (BMI) [Ratio] 32 kg/m2 Dr. Mayda Garcia Work Phone: [facility] 04-02-2022 11:18-0500 Body temperature 98.5 [degF] Dr. Mayda Garcia Work Phone: [facility] 04-02-2022 11:18-0500 Body weight 79.[address] Mayda Garcia Work Phone: [facility] 04-02-2022 11:18-0500 Diastolic blood pressure 64 mm[Hg] Dr. Mayda Garcia Work Phone: [facility] 04-02-2022 11:18-0500 Heart rate 100 /min Dr. Mayda Garcia Work Phone: [facility] 04-02-2022 11:18-0500 Respiratory rate 14 /min Dr. Mayda Garcia Work Phone: [facility] 04-02-2022 11:18-0500 SaO2% (BldA) [Mass fraction] 99 % Dr. Mayda Garcia Work Phone: [facility] 04-02-2022 11:18-0500 Systolic blood pressure 104 mm[Hg] Dr. Mayda Garcia Work Phone: [facility] 03-29-2022 10:32-0500 Body height 157.[address] Mayda Garcia Work Phone: [facility] Work Phone: 03-29-2022 10:32-0500 Body mass index (BMI) [Ratio] 32.8 kg/m2 Dr. Mayda Garcia Work Phone: [facility] 03-29-2022 10:32-0500 Body temperature 96 [degF] Dr. Mayda Garcia Work Phone: [facility] 03-29-2022 10:32-0500 Body weight 81.[address] Mayda Garcia Work Phone: [facility] 03-29-2022 10:32-0500 Diastolic blood pressure 93 mm[Hg] Dr. Mayda Garcia Work Phone: [facility] 03-29-2022 10:32-0500 Heart rate 88 /min Dr. Mayda Garcia Work Phone: [facility] 03-29-2022 10:32-0500 Respiratory rate 18 /min Dr. Mayda Garcia Work Phone: [facility] 03-29-2022 10:32-0500 SaO2% (BldA) [Mass fraction] 100 % Dr. Mayda Garcia Work Phone: [facility] 03-29-2022 10:32-0500 Systolic blood pressure 151 mm[Hg] Dr. Mayda Garcia Work Phone: [facility] 03-14-2022 20:13-0500 Diastolic blood pressure 85 mm[Hg] Dr. Mayda Garcia Work Phone: [facility] 03-14-2022 20:13-0500 Heart rate 93 /min Dr. Mayda Garcia Work Phone: [facility] 03-14-2022 20:13-0500 Respiratory rate 18 /min Dr. Mayda Garcia Work Phone: [facility] 03-14-2022 20:13-0500 SaO2% (BldA) [Mass fraction] 98 % Dr. Mayda Garcia Work Phone: [facility] 03-14-2022 20:13-0500 Systolic blood pressure 150 mm[Hg] Dr. Mayda Garcia Work Phone: [facility] 03-14-2022 16:12-0500 Body height 157.[address] Mayda Garcia Work Phone: [facility] Work Phone: 03-14-2022 16:12-0500 Body mass index (BMI) [Ratio] 33 kg/m2 Dr. Mayda Garcia Work Phone: [facility] 03-14-2022 16:12-0500 Body temperature 97.1 [degF] Dr. Mayda Garcia Work Phone: [facility] 03-14-2022 16:12-0500 Body weight 81.[address] Mayda Garcia Work Phone: [facility] 03-10-2022 10:13-0500 Body mass index (BMI) [Ratio] 33.3 kg/m2 Dr. Mayda Garcia Work Phone: [facility] 03-10-2022 10:13-0500 Body temperature 98.2 [degF] Dr. Mayda Garcia Work Phone: [facility] 03-10-2022 10:13-0500 Body weight 82.[address] Mayda Garcia Work Phone: [facility] 03-10-2022 10:13-0500 Diastolic blood pressure 76 mm[Hg] Dr. Mayda Garcia Work Phone: [facility] 03-10-2022 10:13-0500 Heart rate 94 /min Dr. Mayda Garcia Work Phone: [facility] 03-10-2022 10:13-0500 Respiratory rate 18 /min Dr. Mayda Garcia Work Phone: [facility] 03-10-2022 10:13-0500 SaO2% (BldA) [Mass fraction] 96 % Dr. Mayda Garcia Work Phone: [facility] 03-10-2022 10:13-0500 Systolic blood pressure 118 mm[Hg] Dr. Mayda Garcia Work Phone: [facility] 01-14-2022 12:21-0400 Body height 157.[address] Mayda Garcia Work Phone: [facility] Work Phone: 01-14-2022 12:21-0400 Body mass index (BMI) [Ratio] 31.6 kg/m2 Dr. Mayda Garcia Work Phone: [facility] Work Phone: 01-14-2022 12:21-0400 Body weight 78.[address] Mayda Garcia Work Phone: [facility] Work Phone: 01-14-2022 12:21-0400 Diastolic blood pressure 80 mm[Hg] Dr. Mayda Garcia Work Phone: [facility] Work Phone: 01-14-2022 12:21-0400 Heart rate 102 /min Dr. Mayda Garcia Work Phone: [facility] Work Phone: 01-14-2022 12:21-0400 Respiratory rate 16 /min Dr. Mayda Garcia Work Phone: [facility] Work Phone: 01-14-2022 12:21-0400 SaO2% (BldA) [Mass fraction] 98 % Dr. Mayda Garcia Work Phone: [facility] Work Phone: 01-14-2022 12:21-0400 Systolic blood pressure 130 mm[Hg] Dr. Mayda Garcia Work Phone: [facility] Work Phone: 01-10-2022 09:51-0400 Body mass index (BMI) [Ratio] 32.1 kg/m2 Dr. Mayda Garcia Work Phone: [facility] Work Phone: 01-10-2022 09:51-0400 Body temperature 97 [degF] Dr. Mayda Garcia Work Phone: [facility] Work Phone: 01-10-2022 09:51-0400 Body weight 79.[address] Mayda Garcia Work Phone: [facility] Work Phone: 01-10-2022 09:51-0400 Diastolic blood pressure 78 mm[Hg] Dr. Mayda Garcia Work Phone: [facility] Work Phone: 01-10-2022 09:51-0400 Heart rate 80 /min Dr. Mayda Garcia Work Phone: [facility] Work Phone: 01-10-2022 09:51-0400 Respiratory rate 16 /min Dr. Mayda Garcia Work Phone: [facility] Work Phone: 01-10-2022 09:51-0400 SaO2% (BldA) [Mass fraction] 98 % Dr. Mayda Garcia Work Phone: [facility] Work Phone: 01-10-2022 09:51-0400 Systolic blood pressure 100 mm[Hg] Dr. Mayda Garcia Work Phone: [facility] Work Phone: 01-03-2022 13:14-0400 Body temperature 97.3 [degF] Dr. Mayda Garcia Work Phone: [facility] Work Phone: 01-03-2022 13:14-0400 Diastolic blood pressure 77 mm[Hg] Dr. Mayda Garcia Work Phone: [facility] Work Phone: 01-03-2022 13:14-0400 Heart rate 77 /min Dr. Mayda Garcia Work Phone: [facility] Work Phone: 01-03-2022 13:14-0400 Respiratory rate 18 /min Dr. Mayda Garcia Work Phone: [facility] Work Phone: 01-03-2022 13:14-0400 SaO2% (BldA) [Mass fraction] 99 % Dr. Mayda Garcia Work Phone: [facility] Work Phone: 01-03-2022 13:14-0400 Systolic blood pressure 123 mm[Hg] Dr. Mayda Garcia Work Phone: [facility] Work Phone: 01-03-2022 06:00-0400 Body weight 81.[address] Mayda Garcia Work Phone: [facility] Work Phone: 01-02-2022 12:50-0400 Body height 157.[address] Mayda Garcia Work Phone: [facility] Work Phone: 01-02-2022 12:50-0400 Body mass index (BMI) [Ratio] 32.7 kg/m2 Dr. Mayda Garcia Work Phone: [facility] Work Phone: 12-23-2021 15:00-0400 Body mass index (BMI) [Ratio] 30.4 kg/m2 Dr. Mayda Garcia Work Phone: [facility] Work Phone: 12-23-2021 15:00-0400 Body temperature 98.7 [degF] Dr. Mayda Garcia Work Phone: [facility] Work Phone: 12-23-2021 15:00-0400 Body weight 80.[address] Mayda Garcia Work Phone: [facility] Work Phone: 12-23-2021 15:00-0400 Diastolic blood pressure 64 mm[Hg] Dr. Mayda Garcia Work Phone: [facility] Work Phone: 12-23-2021 15:00-0400 Heart rate 92 /min Dr. Mayda Garcia Work Phone: [facility] Work Phone: 12-23-2021 15:00-0400 Respiratory rate 18 /min Dr. Mayda Garcia Work Phone: [facility] Work Phone: 12-23-2021 15:00-0400 SaO2% (BldA) [Mass fraction] 97 % Dr. Mayda Garcia Work Phone: [facility] Work Phone: 12-23-2021 15:00-0400 Systolic blood pressure 140 mm[Hg] Dr. Mayda Garcia Work Phone: [facility] Work Phone: 12-17-2021 05:21-0400 Diastolic blood pressure 62 mm[Hg] Dr. Mayda Garcia Work Phone: [facility] Work Phone: 12-17-2021 05:21-0400 Heart rate 97 /min Dr. Mayda Garcia Work Phone: [facility] Work Phone: 12-17-2021 05:21-0400 Respiratory rate 18 /min Dr. Mayda Garcia Work Phone: [facility] Work Phone: 12-17-2021 05:21-0400 SaO2% (BldA) [Mass fraction] 98 % Dr. Mayda Garcia Work Phone: [facility] Work Phone: 12-17-2021 05:21-0400 Systolic blood pressure 154 mm[Hg] Dr. Mayda Garcia Work Phone: [facility] Work Phone: 12-17-2021 03:52-0400 Body height 162.[address] Mayda Garcia Work Phone: [facility] Work Phone: 12-17-2021 03:52-0400 Body mass index (BMI) [Ratio] 31 kg/m2 Dr. Mayda Garcia Work Phone: [facility] Work Phone: 12-17-2021 03:52-0400 Body temperature 97.8 [degF] Dr. Mayda Garcia Work Phone: [facility] Work Phone: 12-17-2021 03:52-0400 Body weight 82.[address] Mayda Garcia Work Phone: [facility] Work Phone: 11-28-2021 19:34-0400 Body height 187.[address] Mayda Garcia Work Phone: [facility] Work Phone: 11-28-2021 19:34-0400 Body mass index (BMI) [Ratio] 22.4 kg/m2 Dr. Mayda Garcia Work Phone: [facility] Work Phone: 11-28-2021 19:34-0400 Body temperature 98.6 [degF] Dr. Mayda Garcia Work Phone: [facility] Work Phone: 11-28-2021 19:34-0400 Body weight 79.[address] Mayda Garcia Work Phone: [facility] Work Phone: 11-28-2021 19:34-0400 Diastolic blood pressure 74 mm[Hg] Dr. Mayda Garcia Work Phone: [facility] Work Phone: 11-28-2021 19:34-0400 Heart rate 109 /min Dr. Mayda Garcia Work Phone: [facility] Work Phone: 11-28-2021 19:34-0400 Respiratory rate 18 /min Dr. Mayda Garcia Work Phone: [facility] Work Phone: 11-28-2021 19:34-0400 SaO2% (BldA) [Mass fraction] 99 % Dr. Mayda Garcia Work Phone: [facility] Work Phone: 11-28-2021 19:34-0400 Systolic blood pressure 167 mm[Hg] Dr. Mayda Garcia Work Phone: [facility] Work Phone: 11-06-2021 16:11-0400 Body mass index (BMI) [Ratio] 32.5 kg/m2 Dr. Mayda Garcia Work Phone: [facility] Work Phone: 11-06-2021 16:11-0400 Body temperature 98.4 [degF] Dr. Mayda Garcia Work Phone: [facility] Work Phone: 11-06-2021 16:11-0400 Body weight 80.[address] Mayda Garcia Work Phone: [facility] Work Phone: 11-06-2021 16:11-0400 Diastolic blood pressure 70 mm[Hg] Dr. Mayda Garcia Work Phone: [facility] Work Phone: 11-06-2021 16:11-0400 Heart rate 97 /min Dr. Mayda Garcia Work Phone: [facility] Work Phone: 11-06-2021 16:11-0400 Respiratory rate 18 /min Dr. Mayda Garcia Work Phone: [facility] Work Phone: 11-06-2021 16:11-0400 SaO2% (BldA) [Mass fraction] 97 % Dr. Mayda Garcia Work Phone: [facility] Work Phone: 11-06-2021 16:11-0400 Systolic blood pressure 130 mm[Hg] Dr. Mayda Garcia Work Phone: [facility] Work Phone: 11-05-2021 10:56-0400 Body mass index (BMI) [Ratio] 32.3 kg/m2 Dr. Mayda Garcia Work Phone: [facility] Work Phone: 11-05-2021 10:56-0400 Body temperature 97.4 [degF] Dr. Mayda Garcia Work Phone: [facility] Work Phone: 11-05-2021 10:56-0400 Body weight 80.[address] Mayda Garcia Work Phone: [facility] Work Phone: 11-05-2021 10:56-0400 Diastolic blood pressure 78 mm[Hg] Dr. Mayda Garcia Work Phone: [facility] Work Phone: 11-05-2021 10:56-0400 Heart rate 91 /min Dr. Mayda Garcia Work Phone: [facility] Work Phone: 11-05-2021 10:56-0400 Respiratory rate 16 /min Dr. Mayda Garcia Work Phone: [facility] Work Phone: 11-05-2021 10:56-0400 SaO2% (BldA) [Mass fraction] 98 % Dr. Mayda Garcia Work Phone: [facility] Work Phone: 11-05-2021 10:56-0400 Systolic blood pressure 144 mm[Hg] Dr. Mayda Garcia Work Phone: [facility] Work Phone: 10-25-2021 15:34-0400 Body temperature 98.9 [degF] Dr. Mayda Garcia Work Phone: [facility] Work Phone: 10-25-2021 15:34-0400 Diastolic blood pressure 64 mm[Hg] Dr. Mayda Garcia Work Phone: [facility] Work Phone: 10-25-2021 15:34-0400 Heart rate 78 /min Dr. Mayda Garcia Work Phone: [facility] Work Phone: 10-25-2021 15:34-0400 Respiratory rate 12 /min Dr. Mayda Garcia Work Phone: [facility] Work Phone: 10-25-2021 15:34-0400 SaO2% (BldA) [Mass fraction] 98 % Dr. Mayda Garcia Work Phone: [facility] Work Phone: 10-25-2021 15:34-0400 Systolic blood pressure 126 mm[Hg] Dr. Mayda Garcia Work Phone: [facility] Work Phone: 10-25-2021 13:34-0400 Body height 157.[address] Mayda Garcia Work Phone: [facility] Work Phone: 10-25-2021 13:34-0400 Body mass index (BMI) [Ratio] 32.9 kg/m2 Dr. Mayda Garcia Work Phone: [facility] Work Phone: 10-25-2021 13:34-0400 Body weight 81.[address] Mayda Garcia Work Phone: [facility] Work Phone: 10-17-2021 10:00-0400 Body mass index (BMI) [Ratio] 31.6 kg/m2 Dr. Mayda Garcia Work Phone: [facility] Work Phone: 10-17-2021 10:00-0400 Body weight 78.[address] Mayda Garcia Work Phone: [facility] Work Phone: 10-17-2021 10:00-0400 Diastolic blood pressure 60 mm[Hg] Dr. Mayda Garcia Work Phone: [facility] Work Phone: 10-17-2021 10:00-0400 Heart rate 79 /min Dr. Mayda Garcia Work Phone: [facility] Work Phone: 10-17-2021 10:00-0400 Respiratory rate 16 /min Dr. Mayda Garcia Work Phone: [facility] Work Phone: 10-17-2021 10:00-0400 SaO2% (BldA) [Mass fraction] 99 % Dr. Mayda Garcia Work Phone: [facility] Work Phone: 10-17-2021 10:00-0400 Systolic blood pressure 106 mm[Hg] Dr. Mayda Garcia Work Phone: [facility] Work Phone: 07-16-2021 13:57-0400 Body mass index (BMI) [Ratio] 32.4 kg/m2 Dr. Mayda Garcia Work Phone: [facility] Work Phone: 07-16-2021 13:57-0400 Diastolic blood pressure 84 mm[Hg] Dr. Mayda Garcia Work Phone: [facility] Work Phone: 07-16-2021 13:57-0400 Systolic blood pressure 150 mm[Hg] Dr. Mayda Garcia Work Phone: [facility] Work Phone: 07-16-2021 13:05-0400 Body weight 80.[address] Mayda Garcia Work Phone: [facility] Work Phone: 07-16-2021 13:05-0400 Heart rate 106 /min Dr. Mayda Garcia Work Phone: [facility] Work Phone: 07-16-2021 13:05-0400 SaO2% (BldA) [Mass fraction] 97 % Dr. Mayda Garcia Work Phone: [facility] Work Phone: Encounters Encounter Date Encounter Type Care Provider Facility Start: 11-11-2024 ambulatory Vanita Venegas NP Fac ility:[facility] Start: 11-07-2024 End: 11-07-2024 Dr. Pepe Ruiz MD -[facility] Work Phone: Start: 11-07-2024 End: 11-07-[address] Mayda Garcia MD Work Phone: -[facility] Start: 10-20-2024 End: 10-20-[address] Mayda Garcia MD Work Phone: [facility] Work Phone: Start: 10-20-2024 End: 10-20-2024 Vanita Venegas NP-C -Sleep Lab Work Phone: Start: 10-20-2024 End: 10-20-2024 ambulatory Vanita Venegas NP Facility:[facility] Start: 10-03-2024 End: 10-03-2024 Dr. Pepe Ruiz MD -[facility] Work Phone: Start: 10-03-2024 End: 10-03-[address] Mayda Garcia MD Work Phone: [facility] Work Phone: Start: 09-28-2024 End: 09-28-2024 Vanita Venegas LEAD RECOVERER-C -[facility] Work Phone: Start: 09-28-2024 End: 09-28-[address] Mayda Garcia MD Work Phone: [facility] Work Phone: Start: 09-22-2024 End: 09-22-[address] Mayda Garcia MD Work Phone: [facility] Work Phone: Start: 09-22-2024 End: 09-22-2024 Dr. Mayda Garcia MD -Laboratory [facility] Start: 09-21-2024 End: 09-21-2024 Dr. Mayda Garcia MD -[facility] Work Phone: Start: 09-21-2024 End: 09-22-[address] Mayda Garcia MD Work Phone: [facility] Work Phone: Start: 09-19-2024 End: 09-19-2024 Mikhail LÓPEZ -[facility] Work Phone: Start: 09-19-2024 End: 09-19-[address] Mayda Garcia MD Work Phone: [facility] Work Phone: Start: 09-16-2024 End: 09-16-2024 Dr. Mayda Garcia MD Work Phone: -Emergency Department Work Phone: Start: 09-16-2024 End: 09-16-2024 Emergency department patient visit Dr. Mayda Garcia MD Work Phone: [facility] Work Phone: Start: 08-11-2024 ambulatory Norisrosemary Espinozachandana Facili ty:[facility] Start: 08-10-2024 End: 08-10-2024 Dr. Mayda Garcia MD -[facility] Work Phone: Start: 08-10-2024 End: 08-10-2024 ambulatory Mayda Garcia Facility:[facility] Start: 07-22-2024 ambulatory [facility] ty:[facility] Start: 07-15-2024 End: 07-15-2024 Dr. Mayda Garcia MD Work Phone: -Emergency Department Work Phone: Start: 07-15-2024 End: 07-15-2024 Emergency department patient visit Dr. Mayda Garcia MD Work Phone: [facility] Work Phone: Start: 07-14-2024 End: 07-14-2024 Emergency department patient visit Dr. Mayda Garcia MD Work Phone: [facility] Work Phone: Start: 07-14-2024 End: 07-14-2024 Dr. Mayda Garcia MD Work Phone: -Emergency Department Work Phone: Start: 07-05-2024 End: 07-05-2024 Dr. Pepe Ruiz MD -[facility] Work Phone: Start: 07-05-2024 End: 07-05-2024 ambulatory Pepe uRiz Facility:[facility] Start: 06-22-2024 End: 06-22-2024 Dr. Yee Rowland MD -[facility] Work Phone: Start: 06-22-2024 End: 06-22-2024 ambulatory [facility] Facility:[facility] Start: 06-07-2024 End: 06-07-2024 Dr. Mayda Garcia MD -Outpatient Breast Imaging Work Phone: Start: 06-07-2024 End: 06-07-2024 ambulatory [facility] Facility:[facility] Start: 05-20-2024 End: 05-20-2024 Dr. Mayda Garcia MD -[facility] Work Phone: Start: 05-20-2024 End: 05-20-2024 ambulatory [facility] Facility:[facility] Start: 05-16-2024 End: 05-16-2024 [facility] Start: 05-16-2024 End: 05-16-2024 Dr. Pepe Ruiz MD -[facility] Work Phone: Start: 05-16-2024 End: 05-16-2024 ambulatory [facility] Facility:[facility] Start: 05-16-2024 End: 05-16-2024 ambulatory [facility] Facility:[facility] Start: 04-25-2024 ambulatory Vanita Venegas LEAD RECOVERER Fac ility:[facility] Start: 04-25-2024 Dr. Russell Jang DO -[facility] Start: 04-21-2024 End: 04-21-2024 Dr. Pepe Ruiz MD -[facility] Work Phone: Start: 04-21-2024 End: 04-21-2024 [facility] Start: 04-20-2024 End: 04-20-2024 Vanita Venegas LEAD RECOVERER-C -Pulmonary Services/Neurology Work Phone: Start: 04-19-2024 End: 04-19-2024 Dr. Winston Johnson MD -[facility] Work Phone: Start: 04-19-2024 End: 04-20-2024 ambulatory Vanita Venegas LEAD RECOVERER Facility:[facility] Start: 04-04-2024 ambulatory Vanita Venegas LEAD RECOVERER Fac ility:[facility] Start: 02-19-2024 End: 02-19-2024 ambulatory Janee Dumontpatricia Facility:[facility] Start: 02-19-2024 End: 02-19-2024 ambulatory Janeevinny Millsosman Facility:[facility] Start: 02-14-2024 End: 02-14-2024 Emergency department patient visit Ulisses Rocio Facility:[facility] Start: 01-19-2024 End: 01-19-2024 ambulatory Mayda Espinozae Facility:[facility] Start: 01-05-2024 End: 01-05-2024 ambulatory Pepe Ruiz Facility:[facility] Start: 12-23-2023 End: 12-23-2023 ambulatory Efewrosemary Espinozae Facility:[facility] Start: 12-21-2023 ambulatory Mynor Miller Facility:[facility] Start: 12-16-2023 End: 12-17-2023 ambulatory Vanita Venegas LEAD RECOVERER Facility:[facility] Start: 12-07-2023 End: 12-07-2023 ambulatory Vanita Venegas LEAD RECOVERER Facility:[facility] Start: 12-02-2023 End: 12-02-2023 ambulatory Mynor Miller Facility:[facility] Start: 12-02-2023 End: 12-02-2023 ambulatory Yee Rowland Facility:[facility] Start: 11-16-2023 ambulatory Mayda Garcia Facili ty:[facility] Start: 11-16-2023 ambulatory Maurilio Bradford Facility:[facility] Start: 11-15-2023 End: 11-18-2023 ambulatory Maurilio Bradford Facility:[facility] Start: 09-07-2023 End: 09-07-[address] Mayda Garcia Work Phone: [facility] Work Phone: Start: 09-07-2023 End: 09-07-[address] Mayda Garcia Work Phone: [facility] Work Phone: Start: 08-19-2023 End: 08-19-[address] Mayda Garcia Work Phone: [facility] Internal Medicine Work Phone: Start: 08-19-2023 End: 09-01-[address] Mayda Garcia Work Phone: [facility] Work Phone: Start: 08-19-2023 End: 09-01-[address] Mayda Garcia Work Phone: [facility]-Cardiac Rehab Work Phone: Start: 08-19-[address] Susan Garcia Work Phone: [facility]-Cardiac Rehab Work Phone: Start: 08-14-2023 End: 08-14-[address] Mayda Garcia Work Phone: [facility] Work Phone: Start: 08-14-2023 End: 08-14-[address] Mayda Garcia Work Phone: [facility]-Cat Scan, [facility] Work Phone: Start: 08-10-2023 End: 08-10-[address] Mayda Garcia Work Phone: [facility] Work Phone: Start: 08-10-2023 End: 08-10-[address] Mayda Garcia Work Phone: [facility]-Nuclear Medicine, [facility] Work Phone: Start: 08-10-[address] Susan Garcia Work Phone: [facility]-Cardiac Rehab Work Phone: Start: 07-31-2023 End: 08-02-[address] Mayda Garcia Work Phone: [facility] Work Phone: Start: 07-31-2023 End: 08-02-[address] Mayda Garcia Work Phone: [facility]-Cardiac Rehab Work Phone: Start: 07-30-2023 End: 07-30-[address] Mayda Garcia Work Phone: [facility] Gastroenterology Work Phone: Start: 07-27-[address] Susan Garcia Work Phone: [facility]-Cardiac Rehab Work Phone: Start: 07-23-2023 End: 07-23-[address] Mayda Garcia Work Phone: [facility] Internal Medicine Work Phone: Start: 07-21-2023 End: 07-21-[address] Mayda Garcia Work Phone: [facility] Work Phone: Start: 07-21-2023 End: 07-21-[address] Mayda Garcia Work Phone: [facility]-Sleep Lab Work Phone: Start: 07-21-2023 End: 07-21-[address] Mayda Garcia Work Phone: [facility] Work Phone: Start: 07-21-2023 End: 07-21-[address] Mayda Garcia Work Phone: [facility]-Outpatient Bone Densitometry Work Phone: Start: 07-20-2023 End: 07-20-[address] Mayda Garcia Work Phone: [facility] Neurology Work Phone: Start: 07-01-2023 End: 07-02-[address] Mayda Garcia Work Phone: [facility] Work Phone: Start: 07-01-2023 End: 07-02-[address] Mayda Garcia Work Phone: [facility]-Cardiac Rehab Work Phone: Start: 07-01-[address] Susan Garcia Work Phone: [facility]-Cardiac Rehab Work Phone: Start: 06-25-2023 End: 06-25-[address] Mayda Garcia Work Phone: [facility] Work Phone: Start: 06-25-2023 End: 06-25-[address] Mayda Garcia Work Phone: [facility]-Sleep Lab Work Phone: Start: 06-22-[address] Susan Garcia Work Phone: [facility]-Cardiac Rehab Work Phone: Start: 06-17-2023 End: 06-17-[address] Mayda Garcia Work Phone: [facility] Work Phone: Start: 06-17-2023 End: 06-17-[address] Mayda Garcia Work Phone: [facility] Internal Medicine Work Phone: Start: 06-10-2023 End: 06-10-[address] Mayda Garcia Work Phone: [facility]-Pulmonary Medicine [facility] Work Phone: Start: 06-01-2023 End: 06-01-[address] Mayda Garcia Work Phone: [facility] Work Phone: Start: 06-01-2023 End: 06-01-[address] Mayda Garcia Work Phone: [facility]-Cardiac Rehab Work Phone: Start: 05-25-2023 End: 05-25-[address] Mayda Garcia Work Phone: [facility] Work Phone: Start: 05-25-2023 End: 05-25-[address] Mayda Garcia Work Phone: [facility]-Outpatient Breast Imaging Work Phone: Start: 05-20-2023 End: 05-20-[address] Mayda Garcia Work Phone: [facility] Orthopaedic Spec[facility] Work Phone: Start: 05-18-2023 End: 05-18-[address] Mayda Garcia Work Phone: [facility] Neurology Work Phone: Start: 04-16-2023 End: 04-16-[address] Mayda Garcia Work Phone: [facility] Neurology Work Phone: Start: 04-08-2023 Non-patient / Non-visit Dr. Jia Garcia Work Phone: [facility] Start: 03-30-2023 End: 03-30-[address] Mayda Garcia Work Phone: [facility] Work Phone: Start: 03-30-2023 End: 03-30-[address] Mayda Garcia Work Phone: [facility] Work Phone: Start: 03-30-2023 End: 03-30-2023 Dr. Mayda Garcia Work Phone: [facility] Work Phone: Start: 03-19-2023 End: 03-19-[address] Mayda Garcia Work Phone: [facility] Work Phone: Start: 03-19-2023 End: 03-19-2023 Dr. Mayda Garcia Work Phone: [facility] Work Phone: Start: 03-16-2023 End: 03-16-[address] Mayda Garcia Work Phone: [facility] Internal Medicine Work Phone: Start: 03-16-2023 End: 03-16-2023 Dr. Mayda Garcia Work Phone: [facility] Internal Medicine Work Phone: Start: 02-18-2023 End: 02-18-[address] Mayda Garcia Work Phone: [facility] Work Phone: Start: 02-18-2023 End: 02-18-[address] Mayda Garcia Work Phone: [facility] Work Phone: Start: 02-18-2023 End: 02-18-2023 Dr[facility] Work Phone: Start: 02-18-2023 End: 02-18-[address] Mayda Garcia Work Phone: [facility] Work Phone: Start: 02-18-2023 End: 02-18-2023 Dr. Mayda Garcia Work Phone: [facility] Work Phone: Start: 02-11-2023 End: 02-11-[address] Mayda Garcia Work Phone: [facility] Neurology Work Phone: Start: 02-11-2023 End: 02-11-2023 Dr. Mayda Garcia Work Phone: [facility] Neurology Work Phone: Start: 02-04-2023 End: 02-04-[address] Mayda Garcia [facility] [place] Start: 02-04-2023 End: 02-04-2023 Dr. Mayda Garcia Work Phone: [facility] [place] [place] Start: 02-04-2023 End: 02-04-[address] Mayda Garcia Work Phone: [facility] Internal Medicine Work Phone: Start: 02-04-2023 End: 02-04-2023 Dr. Mayda Garcia Work Phone: [facility] Internal Medicine Work Phone: Start: 01-27-2023 End: 01-27-2023 Postop follow up visit related to original px Kassy Ken CNP Work Phone: [facility] Cardiovascular & Thoracic Surgery Comment on above: S/P CABG (coronary a rtery bypass graft) (Primary Dx) Start: 01-11-2023 End: 01-26-2023 Evaluation and management of inpatient Dr. Mayda Garcia Work Phone: [facility] Start: 01-11-2023 End: 01-26-2023 Dr. Mayda Garcia Work Phone: [facility] Start: 01-01-2023 Evaluation and management of inpatient [facility] Start: 01-01-2023 End: 01-11-2023 Evaluation and management of inpatient Azam Rose MD Work Phone: [facility] Comment on above: S/P CABG (coronary a rtery bypass graft) (Primary Dx); CAD in [place] artery; Coronary artery disease involving coronary bypass graft, unspecified whether angina present, unspecified whether [place] or transplanted heart Start: 12-29-2022 End: 12-29-2022 Encounter for other preprocedural examination [facility] Start: 12-29-2022 End: 12-30-2022 ambulatory [facility] Start: 12-29-2022 End: 12-29-2022 Preoperative state Azam Rose MD Work Phone: [facility] Work Phone: Start: 12-29-2022 End: 12-29-2022 Subsequent hospital visit by physician Azam Rose MD Work Phone: [facility] Comment on above: Preoperative clearan ce Start: 12-24-2022 Admission to [facility] Kassy Ken CNP Work Phone: [facility] Thoracic [facility] Comment on above: CAD in [place] artery (Primary Dx); Preoperative clearance Start: 12-24-2022 ambulatory Kassy Ken CNP Work Phone: [facility] Start: 12-24-2022 Preoperative state Kassy Dennis er [employer] ATTENDANT - PROFESSOR OF SPANISH Work Phone: [facility] Work Phone: Start: 12-23-2022 Telephone encounter Azam fenton MD Work Phone: [facility]acic [facility] Comment on above: Surgery Scheduling Start: 12-23-2022 End: 12-23-2022 ambulatory AZAM ROSE [facility] Start: 12-23-2022 End: 12-23-2022 Office outpatient new 60 minutes Azam Rose MD Work Phone: [facility] Cardiovascular [facility] Thoracic [facility] Comment on above: 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 Jia Garcia Work Phone: [facility] In[facility] Physicians Work Phone: Start: 12-19-2022 Dr. Mayda Garcia Work Phone: [facility] Work Phone: Start: 12-19-2022 Non-patient / Non-visit Dr. Jia Garcia Work Phone: [facility] Start: 12-19-2022 Dr. Mayda Garcia Work Phone: [facility] Start: 12-18-2022 Non-patient / Non-visit Dr. Jia Garcia Work Phone: [facility] Work Phone: Start: 12-18-2022 Dr. Mayda Garcia Work Phone: [facility] Work Phone: Start: 12-18-2022 End: 12-19-2022 Evaluation and management of inpatient Dr. Mayda Garcia Work Phone: [facility] Work Phone: Start: 12-18-2022 End: 12-19-[address] Mayda Garcia Work Phone: [facility] Work Phone: Start: 12-18-2022 End: 12-19-2022 Dr. Mayda Garcia Work Phone: [facility] Work Phone: Start: 12-18-2022 Evaluation and management of inpatient Dr. Mayda Garcia Work Phone: [facility] Work Phone: Start: 12-16-2022 End: 12-16-[address] Mayda Garcia Work Phone: [facility] Work Phone: Start: 12-16-2022 End: 12-16-[address] Mayda Garcia Work Phone: [facility] Work Phone: Start: 12-16-2022 End: 12-16-2022 Dr. Mayda Garcia Work Phone: [facility] Work Phone: Start: 12-11-2022 End: 12-11-[address] Mayda Garcia Work Phone: [facility] Internal Medicine Work Phone: Start: 12-11-2022 End: 12-11-2022 Dr. Mayda Garcia Work Phone: [facility] Internal Medicine Work Phone: Start: 11-19-2022 End: 11-19-[address] Mayda Garcia Work Phone: [facility] Work Phone: Start: 11-19-2022 End: 11-19-2022 Dr. Mayda Garcia Work Phone: [facility] Work Phone: Start: 10-10-2022 End: 10-10-[address] Mayda Garcia Work Phone: [facility] Work Phone: Start: 10-03-2022 End: 10-03-[address] Mayda Garcia Work Phone: [facility] Work Phone: Start: 10-03-2022 End: 10-03-[address] Mayda Garcia Work Phone: [facility] Start: 10-03-2022 End: 10-03-[address] Mayda Garcia Work Phone: [facility] Internal Medicine Start: 10-02-2022 End: 10-02-[address] Mayda Garcia Work Phone: [facility] Neurology Start: 10-01-2022 End: 10-01-[address] Mayda Garcia Work Phone: [facility] Work Phone: Start: 10-01-2022 End: 10-01-[address] Mayda Garcia Work Phone: [facility] [place] [place] Start: 08-22-2022 End: 08-22-[address] Mayda Garcia Work Phone: [facility] Internal Medicine Start: 08-13-2022 End: 08-14-2022 Emergency department patient [facility] Mayda [facility] Start: 07-16-2022 End: 07-16-[address] Mayda Garcia Work Phone: [facility] Start: 06-30-2022 End: 06-30-[address] Mayda Garcia Work Phone: [facility] Start: 06-09-2022 End: 06-09-[address] Mayda Garcia Work Phone: [facility] Start: 06-07-2022 End: 06-07-2022 Emergency department patient visit [facility] Mayda Garcia [facility] Start: 06-06-2022 End: 06-06-2022 Emergency department patient visit [facility] Mayda Garcia [facility] Start: 05-06-2022 End: 05-06-[address] Mayda Garcia Work Phone: [facility] Work Phone: Start: 05-06-2022 End: 05-06-[address] Mayda Garcia Work Phone: [facility] Start: 04-02-2022 End: 04-02-[address] Mayda Garcia Work Phone: [facility] Internal [facility] Start: 03-29-2022 End: 03-29-2022 Emergency department patient visit Dr. Mayda Garcia [facility] Start: 03-14-2022 End: 03-14-2022 Emergency department patient visit Dr. Mayda Garcia Work Phone: [facility]-Emergency Department Start: 03-10-2022 End: 03-10-[address] Mayda Garcia Work Phone: [facility]-Pulmonary Medicine [facility] Start: 02-21-2022 End: 02-21-[address] Mayda Garcia Work Phone: [facility] Work Phone: Start: 02-21-2022 End: 02-21-[address] Mayda Garcia Work Phone: [facility]-Physical Therapy Start: 01-14-2022 End: 01-14-[address] Mayda Garcia Work Phone: [facility] Start: 01-10-2022 End: 01-10-[address] Mayda Garcia Work Phone: [facility] Work Phone: Start: 01-10-2022 End: 01-10-[address] Mayda Garcia Work Phone: [facility] Internal Medicine Start: 01-03-2022 Non-patient / Non-visit Dr. Jia Garcia Work Phone: [facility] Inpatient Physicians Start: 01-03-2022 Non-patient / Non-visit Dr. Jia Garcia Work Phone: [facility] Start: 01-02-2022 Non-patient / Non-visit Dr. Jia Garcia Work Phone: [facility]patient Physicians Start: 01-02-2022 End: 01-03-2022 Evaluation and management of inpatient Dr. Mayda Garcia Work Phone: [facility]-Progressive Care Unit Start: 01-02-2022 End: 01-03-[address] Mayda Garcia Work Phone: [facility] Work Phone: Start: 01-02-2022 Non-patient / Non-visit Dr. Jia Garcia Work Phone: [facility] Start: 12-23-2021 End: 12-23-[address] Mayda Garcia Work Phone: [facility] Internal Medicine Start: 12-17-2021 End: 12-17-2021 Emergency department patient visit Dr. Mayda Garcia Work Phone: [facility]-Emergency Department Start: 12-12-2021 End: 12-12-[address] Mayda Lozano Phone: [facility]-Outpatient Breast Imaging Start: 11-29-2021 Non-patient / Non-visit Dr. Jia Garcia Work Phone: [facility] Start: 11-29-2021 End: 11-29-[address] Mayda Lozano Phone: [facility]-Cardiovascular Services Start: 11-28-2021 End: 11-28-2021 Emergency department patient visit Dr. Mayda Garcia Work Phone: [facility]-Emergency Department Start: 11-06-[address] Mayda Garcia Work Phone: [facility] Start: 11-06-2021 End: 11-06-2021 Encounter for general adult medical examination without abnormal findings Dr. Mayda Garcia Work Phone: [facility] Internal Medicine Start: 11-06-2021 End: 11-06-[address] Mayda Garcai Work Phone: [facility] Internal Medicine Start: 11-05-2021 End: 11-05-[address] Mayda Lozano Phone: [facility]-Pulmonary Medicine [facility] Start: 10-25-2021 End: 10-25-2021 Emergency department patient visit Dr. Mayda Lozano Phone: [facility]-Emergency Department Start: 10-17-2021 End: 10-17-[address] Mayda Garcia Work Phone: [facility] Neurology Start: 07-18-2021 End: 07-18-[address] Mayda Lozano Phone: [facility]-Physical Therapy Start: 07-16-2021 End: 07-16-[address] Mayda Lozano Phone: [facility] Neurology Start: 07-10-2021 End: 07-10-[address] Mayda Lozano Phone: [facility] Internal Medicine Start: 10-02-[address] Mayda Lozano Phone: [facility] Start: 02-25-2018 End: 03-01-2018 Patient encounter procedure TILA (PT) JENELLE [facility] Start: 02-22-2018 End: 02-22-2018 Patient encounter procedure JOSSUE FINLEY [facility] Start: 02-18-2018 End: 02-22-2018 Patient encounter procedure TILA (PT) JENELLE [facility] Start: 02-11-2018 End: 02-12-2018 Patient encounter procedure TILA (PT) JENELLE [facility] Start: 02-09-2018 [facility] CHRIS YAO [facility] Start: 02-04-2018 End: 02-04-2018 Patient encounter procedure TILA (PT) JENELLE [facility] Start: 02-02-2018 End: 02-03-2018 Patient encounter procedure TILA (PT) [facility] Start: 01-28-2018 End: 02-01-2018 Patient encounter procedure TILA (PT) [facility] Start: 01-26-2018 End: 01-27-2018 Patient encounter procedure TILA (PT) [facility] Start: 01-21-2018 End: 01-25-2018 Patient encounter procedure TILA (PT) [facility] Start: 01-14-2018 Patient encounter procedure TILA (PT) [facility] Start: 01-12-2018 End: 01-13-2018 Patient encounter procedure TILA (PT) [facility] Start: 01-11-2018 End: 01-11-2018 Patient encounter procedure MYNOR FLORES [facility] Start: 01-07-2018 End: 01-08-2018 Patient encounter procedure TILA (PT) [facility] Start: 01-05-2018 End: 01-06-2018 Patient encounter procedure TILA (PT) [facility] Start: 12-17-2017 End: 12-17-2017 Patient encounter procedure MYNOR FLORES [facility] Start: 12-09-2017 End: 12-09-2017 Patient encounter procedure MYNOR FLORES [facility] Start: 10-15-2017 End: 10-16-2017 Patient encounter procedure JOSSUE FINLEY [facility] Start: 10-14-2017 End: 10-14-2017 Patient encounter procedure JOSSUE FINLEY [facility] Start: 07-20-2017 End: 07-20-2017 Patient encounter procedure GLEN (ROD CUP FILLER) [facility] Start: 02-09-2017 End: 02-09-2017 Ambulatory CHRIS Chandana YAO [facility] Procedures Date Procedure Procedure Detail Performing [...] Mayda Garcia MD Work Phone: Start: 09-22-2024 [address] antibody measurement Dr. Mayda alanis MD Work [...] bypass graft) Kassy Ken CNP Work Phone: Start: 01-10-2023 Glucose [...] 01-08-2023 Radiologic exam chest single view Shruthi Neumann Carmella [employer] ATTENDANT - PROFESSOR OF [employer]ISH Work Phone: Start: 01-07-2023 Glucose quantitative blood xcpt reagent strip Azam Rose MD Work Phone: Start: 01-07-2023 Glucose quantitative blood xcpt reagent strip Azam Rose MD Work Phone: Start: 01-07-2023 Glucose quantitative blood xcpt reagent strip Azam Rose MD Work Phone: Start: 01-07-2023 Radiologic exam chest single view Shruthi Neumann Carmella HE[employer] ATTENDANT - PROFESSOR [employer] Work Phone: Start: 01-07-2023 Basic metabolic panel calcium total Shruthi Neumann Carmella [employer] ATTENDANT - PROF[employer] Work Phone: Start: 01-06-2023 Glucose quantitative blood xcpt reagent strip Azam Rose MD Work Phone: Start: 01-06-2023 Glucose quantitative blood xcpt reagent strip Azam Rose MD Work Phone: Start: 01-06-2023 Glucose quantitative blood xcpt reagent strip Azam Rose MD Work Phone: Start: 01-06-2023 Radiologic exam chest single view Shruthi Neumann Carmella HE[employer] ATTENDANT - PROFESSOR [employer] Work Phone: Start: 01-06-2023 Basic metabolic panel calcium total Shruthi Plunkettke HE[employer] ATTENDANT - PROFESSOR [employer] Work Phone: Start: 01-05-2023 Glucose quantitative blood xcpt reagent strip Azam Rose MD Work Phone: Start: 01-05-2023 Glucose quantitative blood xcpt reagent strip Azam Rose MD Work Phone: Start: 01-05-2023 Radiologic exam chest single view Shruthi Weaver [employer] ATTENDANT - PROFESSOR [employer] Work Phone: Start: 01-05-2023 Compatibility each unit electronic Remington Hopkins MD Work Phone: Start: 01-05-2023 Basic metabolic panel calcium total Shruthi Weaver [employer] ATTENDANT - PROF[employer] Work Phone: Start: 01-04-2023 Glucose quantitative blood xcpt reagent strip Azam Rose MD Work Phone: Start: 01-04-2023 Glucose quantitative blood xcpt reagent strip Azam Rose MD Work Phone: Start: 01-04-2023 Radiologic exam chest single view Shruthi Weaver HE[employer] ATTENDANT - PROFESSOR [employer] Work Phone: Start: 01-04-2023 End: 01-04-2023 Basic metabolic panel calcium total Shruthi Weaver [employer] ATTENDANT - PROF[employer] Work Phone: Start: 01-03-2023 Glucose quantitative blood xcpt reagent strip Azam Rose MD Work Phone: Start: 01-03-2023 Glucose quantitative blood xcpt reagent strip Azam Rose MD Work Phone: Start: 01-03-2023 Glucose quantitative blood xcpt reagent strip Azam Rose MD Work Phone: Start: 01-03-2023 Radiologic exam chest single view Shruthi Plunkettmamisumit HE[employer] ATTENDANT - PROFESSOR [employer] SP[employer] Work Phone: Start: 01-03-2023 Basic metabolic panel calcium total Shruthi Weaver [employer] ATTENDANT - PROF[employer]OR [employer] Work Phone: Start: 01-02-2023 Glucose quantitative blood xcpt reagent strip Azam Rose MD Work Phone: Start: 01-02-2023 Glucose quantitative blood xcpt reagent strip Azam Rose MD Work Phone: Start: 01-02-2023 End: 01-02-2023 Basic metabolic panel calcium total Chandler Ram [employer] ATTENDANT - PROFESSOR [employer] Work Phone: Start: 01-02-2023 Glucose quantitative blood xcpt reagent strip Azam Rose MD Work Phone: Start: 01-02-2023 Glucose quantitative blood xcpt reagent strip Azam Rose MD Work Phone: Start: 01-02-2023 Radiologic exam chest single view Shruthi Nel Weaver [employer] ATTENDANT - PROFESSOR [employer] Work Phone: Start: 01-02-2023 Ecg routine ecg w/least 12 lds trcg only w/o i&r Shruthi Neumann Carmella HE[employer] ATTENDANT - PROFESSOR [employer] Work Phone: Start: 01-02-2023 End: 01-02-2023 Glucose quantitative blood xcpt reagent strip Azam Rose MD Work Phone: Start: 01-02-2023 End: 01-02-2023 Glucose quantitative blood xcpt reagent strip Azam Rose MD Work Phone: Start: 01-02-2023 Glucose quantitative blood xcpt reagent strip Azam Rose MD Work Phone: Start: 01-02-2023 End: 01-02-2023 Basic metabolic panel calcium total Shruthi Nel Weaver [employer] ATTENDANT - PROFESSOR [employer] Work Phone: Start: 01-01-2023 Glucose quantitative blood xcpt reagent strip Azam oRse MD Work Phone: Start: 01-01-2023 End: 01-01-2023 Glucose quantitative blood xcpt reagent strip Azam Rose MD Work Phone: Start: 01-01-2023 End: 01-01-2023 Glucose quantitative blood xcpt reagent strip Azam Rose MD Work Phone: Start: 01-01-2023 End: 01-01-2023 Glucose quantitative blood xcpt reagent strip Azam Rose MD Work Phone: Start: 01-01-2023 Blood count hematocrit Mynor R Dionna A PRN - PROFESSOR [employer] SP[employer]ISH Work Phone: Start: 01-01-2023 Compatibility each unit electronic Mynor R Dionna [employer] ATTENDANT - PROFESSOR [employer] Work Phone: Start: 01-01-2023 End: 01-01-2023 TRANSFUSE RED BLOOD CELLS Mynor galindo [facility] Work Phone: Start: 01-01-2023 Radiologic exam chest single view Mynor Villareal HEALTH CLUB ATTENDANT - [facility] Work Phone: Start: 01-01-2023 End: 01-01-2023 Blood count complete automated Mynor Villareal [facility] Work Phone: Start: 01-01-2023 Echo transesophag r-t 2d w/prb img acquisj i&r Azam Rose MD Work Phone: Start: 01-01-2023 Ecg routine ecg w/least 12 lds trcg only w/o i&r Shruthi Weaver [facility] Work Phone: Start: 01-01-2023 End: 01-01-2023 Glucose quantitative blood xcpt reagent strip Azam Rose MD Work Phone: Start: 01-01-2023 Basic metabolic panel calcium total Azam Rose MD Work Phone: Start: 01-01-2023 [...] CABG (coronary artery bypass graft) Kassy Tabares APRN [facility] Work Phone: History of coronary artery bypass [...] Treatment Date Care Activity Detail Author Start: 05-22-2025 Cytoplasmic ANCA Screen [facility] Start: 09-21-2024 Patient referral [facility] Work Phone: Start: 09-16-2024 [facility] Start: 07-15-2024 [facility] Start: 07-14-2024 [facility] Start: 07-14-2024 [facility] Start: 05-20-2024 Patient referral [facility] Work Phone: Start: 01-08-2024 Creatinine measurement Creatinine Level [facility] Start: 01-08-2024 Potassium measurement Potassium Level [facility] Start: 01-02-2024 Echocardiography Echocardiogram [facility] Start: 12-30-2023 Hemoglobin A1c measurement Diabetes: Hemoglobin A1C [facility] Start: 07-23-2023 Patient referral [facility] Work Phone: Start: 06-17-2023 Patient referral [facility] Work Phone: Start: 06-01-2023 Patient referral to dietitian [facility] Start: 05-20-2023 Patient referral [facility] Work Phone: Start: 03-19-2023 Patient referral [facility] Work Phone: Start: 02-23-2023 Blood chemistry [facility] Start: 02-16-2023 Blood chemistry [facility] Start: 02-09-2023 Blood chemistry [facility] Start: 02-02-2023 Blood chemistry [facility] Start: 01-28-2023 Development of care plan [facility] Start: 01-26-2023 Patient discharge [facility] Start: 01-22-2023 Referral to service [facility] Start: 01-22-2023 Continuous positive airway pressure ventilation treatment [facility] Start: 01-21-2023 Following clinical pathway protocol [facility] Start: 01-21-2023 [facility] Start: 01-19-2023 End: 01-19-2023 Patient encounter procedure 01/19/2023 11:30 AM EDT Office Visit [facility] Cardiovascular & Thoracic Surgery [address] [place] [id number] Kassy Tabares, GORDO - PROFESSOR OF SPANISH [address] [place] [address] [facility] Cardiovascular & Thoracic Surgery Start: 01-14-2023 End: 01-14-2023 Speech therapy management [facility] Start: 01-13-2023 Speech therapy assessment [facility] Start: 01-12-2023 [facility] Start: 01-12-2023 Development of care plan [facility] Start: 01-12-2023 Developing a treatment plan [facility] Start: 01-11-2023 Seizure precautions [facility] Start: 01-11-2023 Provision of activity privileges [facility] Start: 01-11-2023 Recommendation to continue with treatment [facility] Start: 01-11-2023 Wound care [facility] Start: 01-11-2023 Admission procedure [facility] Start: 01-11-2023 Measuring intake and output [facility] Start: 01-11-2023 Patient referral to dietitian [facility] Start: 01-11-2023 Referral to occupational therapist [facility] Start: 01-11-2023 Referral to service [facility] Start: 01-11-2023 Vital signs measurements [facility] Start: 01-11-2023 End: 01-11-2023 [facility] Start: 01-02-2023 Influenza vaccination Influenza Vaccine (#1) [facility] Start: 01-01-2023 End: 01-01-2023 Admission to same day surgery center 01/01/2023 7:30 AM EDT - 01/01/2023 12:30 PM EDT Surgery [facility] MAIN OR [address] [place] [id number] Azam Rose MD [address] [facility] [place] [address] CABG AND SIS [64636 (CPT )] [facility] Comment on above: CABG AND SIS [08384 (CPT )] Start: 01-01-2023 End: 01-01-2023 Anesthesia consultation 01/01/2023 7:30 AM EDT Anesthesia Event [facility] MA[facility] OR [address] [place] [id number] Adilia Carson, RENE [address] [place] [address] [facility] Start: 01-01-2023 End: 01-01-2023 Cabg w/arterial graft three arterial grafts CABG X3 ARTERIAL GRAFTS Atherosclerotic heart disease of [place] coronary artery without angina pectoris 01/01/2023 7:30 AM EDT [facility] Operating Room Start: 01-01-2023 End: 01-01-2023 Echo transesophag r-t 2d w/prb img acquisj i&r Echocardiography transesophageal real-time Atherosclerotic heart disease of [place] coronary artery without angina pectoris 01/01/2023 7:30 AM EDT [facility] Operating Room Start: 01-01-2023 Subsequent hospital visit by physician 01/01/2023 7:30 AM EDT Hospital Encounter [facility] [address] [facility] [place] [address] Azam Rose MD [address] [place] [address], [address] [place] [address] [facility] MAIN OR Start: 12-26-2022 End: 12-26-2022 Admission to establishment 12/26/2022 1:00 PM EDT Pre-Admission Testing [facility] Pre-Admit Testing [address] [facility] [place] [address] [facility] Pre-Admit Testing Start: 12-24-2022 End: 02-23-2023 Basic metabolic 1998 panel - Serum or Plasma Basic metabolic panel Lab Routine Preoperative clearance Expected: 12/24/2022, Expires: 02/23/2023 [facility] Work Phone: Comment on above: Expected: 12/24/2022, Expires: Start: 12-24-2022 End: 02-23-2023 Blood type and Crossmatch panel - Blood Type and Screen Lab Routine Preoperative clearance Expected: 12/24/2022, Expires: 02/23/2023 [facility] [employer] Comment on above: Expected: 12/24/2022, Expires: Start: 12-24-2022 End: 02-23-2023 CBC panel - Blood by Automated count CBC Lab Routine Preoperative clearance Expected: 12/24/2022, Expires: 02/23/2023 [email or web address] Comment on above: Expected: 12/24/2022, Expires: 3 Start: 12-24-2022 End: 02-23-2023 ECG 12 lead ECG 12 lead CV ECG Routine Preoperative clearance Expected: 12/24/2022, Expires: 02/23/2023 [email or web address] Comment on above: Expected: 12/24/2022, Expires: 3 Start: 12-24-2022 End: 02-23-2023 Hemoglobin A1c/Hemoglobin.total in Blood Hemoglobin A1c Lab Routine Preoperative clearance Expected: 12/24/2022, Expires: 02/23/2023 [facility] Comment on above: Expected: 12/24/2022, Expires: Start: 12-24-2022 End: 02-23-2023 Prepare RBC: 2 Units Prepare RBC: 2 Units Blood Bank Routine Preoperative clearance Expected: 12/24/2022, Expires: 02/23/2023 [facility] Comment on above: Expected: 12/24/2022, Expires: 3 Start: 12-24-2022 End: 02-23-2023 XR Chest 2 Views XR chest 2 views Imaging Routine Preoperative clearance Expected: 12/24/2022, Expires: 02/23/2023 [facility] Comment on above: Expected: 12/24/2022, Expires: 3 Start: 12-19-2022 Patient discharge [facility] Start: 12-19-2022 Patient referral [facility] Work Phone: Start: 12-18-2022 Referral to natural sciences department chair [facility] Start: 12-18-2022 Ambulation without limitation [facility] Start: 12-18-2022 Assessment of risk of venous thromboembolism [facility] Start: 12-18-2022 Insertion of catheter into peripheral vein [facility] Start: 12-18-2022 Oxygen therapy [facility] Start: 12-18-2022 Providing care according to standard [facility] Start: 12-18-2022 Admission procedure [facility] Start: 12-18-2022 Following clinical pathway protocol [facility] Start: 12-18-2022 End: 12-18-2022 [facility] Start: 12-12-2022 Screening for malignant neoplasm of breast Mammogram [facility] Start: 06-07-2022 Incentive spirometry [facility] Start: 06-07-2022 [facility] Start: 06-06-2022 Seizure precautions [facility] Start: 03-14-2022 Seizure precautions [facility] Start: 01-10-2022 Patient referral [facility] Work Phone: Start: 01-03-2022 Patient discharge [facility] Work Phone: Start: 01-02-2022 Care regimes management [facility] Work Phone: Start: 01-02-2022 Notification of physician [facility] Work Phone: Start: 01-02-2022 [facility] Work Phone: Start: 01-02-2022 Following clinical pathway protocol [facility] Work Phone: Start: 01-02-2022 Assessment of risk of venous thromboembolism [facility] Work Phone: Start: 01-02-2022 Catheterization of vein [facility] Work Phone: Start: 01-02-2022 Insertion of catheter into peripheral vein [facility] Work Phone: Start: 01-02-2022 Measuring intake and output [facility] Work Phone: Start: 01-02-2022 Providing care according to standard [facility] Work Phone: Start: 01-02-2022 Provision of activity privileges [facility] Work Phone: Start: 01-02-2022 [facility] Work Phone: Start: 01-02-2022 Admission procedure [facility] Work Phone: Start: 11-28-2021 US.doppler Lower extremity vein [facility] Work Phone: Start: 10-25-2021 [facility] Work Phone: Start: 07-19-2021 COVID-19 Vaccine (4 - Booster for Moderna series) COVID-19 Vaccine (4 - Booster for Moderna series) [facility] Start: 07-19-2021 COVID-19 Vaccine (4 - Moderna series) COVID-19 Vaccine (4 - Moderna series) [facility] Start: 01-17-2021 DTaP/Tdap/Td Vaccines (2 - Td or Tdap) DTaP/Tdap/Td Vaccines (2 - Td or Tdap) [facility] Start: 07-18-2011 Hepatitis B Vaccines (3 of 3 - 19+ 3-dose series) Hepatitis B Vaccines (3 of 3 - 19+ 3-dose series) [facility] Start: 07-18-2011 Hepatitis B Vaccines (3 of 3 - Risk 3-dose series) Hepatitis B Vaccines (3 of 3 - Risk 3-dose series) [facility] Start: 05-04-2007 Pneumococcal Vaccine: 65+ Years (2 - PCV) Pneumococcal Vaccine: 65+ Years (2 - PCV) [facility] Start: 2002 Zoster Vaccines (1 of 2) Zoster Vaccines (1 of 2) [facility] Start: 1970 Hepatitis C screening Hepatitis C Screening [facility] Start: 1964 Depression Screening Depression Screening [facility] Start: 1962 Diabetic foot examination Diabetes: Foot Exam [facility] Start: 1962 Glaucoma screening Diabetes: Retinopathy Screening [facility] Start: 1962 Preventive dental service Diabetes: Dental Exam [facility] Start: 1952 Hemoglobin A1c measurement Diabetes: Hemoglobin A1C [facility] Start: 1952 Lipid panel Lipid Panel [facility] Start: 1952 Medicare Advantage Annual Wellness Visit (AWV) Medicare Advantage Annual Wellness Visit (AWV) [facility] Start: 1952 Screening for malignant neoplasm of colon [facility] Start: 1952 Screening for osteoporosis Bone Density Scan [facility] Antibody to lupus [place] protein measurement [facility] Antibody to SS-A measurement [facility] Basic metabolic 2008 panel with ionized calcium - Serum or Plasma [facility] Blood ammonia measurement [facility] Work Phone: Blood ammonia measurement [facility] Blood ammonia measurement [facility] Blood chemistry [facility] C reactive protein [Mass/volume] in Serum or Plasma [facility] CBC W Auto Different ial panel - Blood [facility] Complete blood count [facility] Work Phone: Complete blood count [facility] Comprehensive metabo lic 2000 panel - Serum or Plasma [facility] CT Abdomen and Pelvi s W contrast IV [facility] Cytoplasmic ANCA Screen [facility] DNA double strand Ab [Units/volume] in Serum [facility] DXA Bone [Mass/Area] Bone density [facility] Erythrocyte sedimentation rate [facility] Folate [Mass/volume] in Serum or Plasma [facility] Hemoglobin A1c/Hemoglobin.total in Blood [facility] Hemoglobin A1c/Hemoglobin.total in Blood [facility] Hepatic function panel [facility] Lipid 1996 panel - S ronnell or Plasma [facility] MG Breast - bilatera l Screening [facility] Work Phone: Patient Education [facility] Work Phone: Patient referral [facility] Work Phone: Radionuclide gastric emptying study [facility] Rheumatoid factor [Presence] in Serum [facility] Streptococcus pyogen es antigen assay Group A Streptococcus Rapid Screen [facility] Work Phone: Thiamine measurement [facility] Thyroid stimulating hormone measurement [facility] Troponin T.cardiac [Mass/volume] in Serum or Plasma by High sensitivity method [facility] Valproate [Mass/volu me] in Serum or Plasma [facility] Viral nucleic acid assay [facility] Vitamin B12 measurement [facility] End: 12-29-2022 XR Chest 2 Views [employer] Work Phone: Comment on above: Once for 1 Occurrences starting 12/30/19 23 until 12/29/2022 XR Shoulder GE 2 Views [facility] Work Phone: [facility] Immunizations Immunization Date Immunization Notes Care Provider Farzana martinez 02-09-2024 RSV Adult BiValent (Abrysvo) Dr. Mayda Garcia MD Work Phone: [facility] 02-04-2023 influenza, injectabl e, quadrivalent, preservative free Dr. Mayda Garcia Work Phone: [facility] 01-14-2023 Pneumococcal Vaccine PCV20 (Prevnar 20) Dr. Mayda Garcia Work Phone: [facility] 03-10-2022 influenza, injectabl e, quadrivalent, preservative free Dr. Mayda Garcia Work Phone: [facility] 03-10-2022 influenza, seasonal, injectable Dr. Mayda Garcia Work Phone: [facility] 03-10-2022 influenza virus vaccine, unspecified formulation Azam Rose MD Work Phone: [facility] 05-24-2021 Covid (Moderna) Dr. Yaron Garcia Work Phone: [facility] 08-09-2020 Covid (Moderna) Dr. Yaron Garcia Work Phone: [facility] 07-11-2020 Covid (Moderna) Dr. Yaron Garcia Work Phone: [facility] 02-10-2020 influenza, injectabl e, quadrivalent, preservative free Dr. Mayda Garcia Work Phone: [facility] 02-10-2020 influenza, seasonal, injectable Dr. Mayda Garcia Work Phone: [facility] 02-10-2020 Seasonal, quadrivale nt, recombinant, injectable influenza vaccine, preservative free Dr. Mayda Garcia Work Phone: [facility] 02-10-[address] Mayda Garcia Work Phone: [facility] 03-21-2018 influenza, injectabl e, quadrivalent, preservative free Dr. Mayda Garcia Work Phone: [facility] 03-21-2018 influenza, seasonal, injectable Dr. Mayda Garcia Work Phone: [facility] 03-21-2018 Seasonal, quadrivale nt, recombinant, injectable influenza vaccine, preservative free Dr. Mayda Garcia Work Phone: [facility] 03-03-2016 influenza, injectabl e, quadrivalent, preservative free Dr. Mayda Garcia Work Phone: [facility] 04-11-2015 influenza, injectabl e, quadrivalent, preservative free Dr. Mayda Garcia Work Phone: [facility] Payers Date Payer Category Payer Self-pay [id number] 2021 Medicare [employer] MEDICARE ADVANTAGE [facility] [id number] 2021-Present [address] [place] [address] Medicare HMO [id number] 2021 Unknown [id number] 2011 Medicare [id number] Medicare [id number] Medicare [id number] Unknown [id number] Unknown [id number] 2.16.840.1.235053.3.579.2.462 Unknown [id number] 2.16.840.1.778829.3.579.2.462 Unknown [id number] 2.16840.1.301329.3.579.2.462 Unknown [id number] 2.16840.1.791310.3.579.2.462 Unknown [id number] 2.840.1.874414.3.579.2.462 Unknown [id number] 2.16840.1.448300.3.579.2.462 Unknown [id number] 2.840.1.911721.3.579.2.462 Unknown [id number] 2.840.1.962860.3.579.2.462 Unknown [id number] 2.840.1.248703.3.579.2.462 Unknown [id number] 2.840.1.083207.3.579.2.462 Unknown [id number] 2.840.1.267067.3.579.2.462 Unknown [id number] 2.840.1.997454.3.579.2.462 Unknown [id number] 2.840.1.488787.3.579.2.462 Unknown [id number] 2.840.1.813507.3.579.2.462 Unknown [id number] 2.840.1.382903.3.579.2.462 Unknown [id number] 2.840.1.090336.3.579.2.462 Unknown [id number] 2.840.1.228581.3.579.2.462 Unknown [id number] 2.840.1.595750.3.579.2.462 Unknown [id number] 2.840.1.000006.3.579.2.462 Unknown [id number] 2.16840.1.452889.3.579.2.462 Unknown [id number] 2.840.1.652275.3.579.2.462 Unknown [id number] 2.16.840.1.139240.3.579.2.462 Unknown [id number] 2.16.840.1.171092.3.579.2.462 Unknown [id number] 2.840.1.605560.3.579.2.462 Unknown [id number] 2.840.1.463305.3.579.2.462 Unknown [id number] 2.840.1.857788.3.579.2.462 Unknown [id number] 2.840.1.814228.3.579.2.462 Unknown [id number] 2.840.1.934944.3.579.2.462 Unknown [id number] 2.840.1.110940.3.579.2.462 Unknown [id number] 2.840.1.697171.3.579.2.462 Unknown [id number] 2.840.1.770706.3.579.2.462 Unknown [id number] 2.840.1.535210.3.579.2.462 Unknown [id number] 2.840.1.871128.3.579.2.462 Unknown [id number] 2.840.1.331474.3.579.2.462 Unknown [id number] 2.840.1.299128.3.579.2.462 Unknown [id number] 2.840.1.862874.3.579.2.462 Unknown [id number] 2.840.1.000650.3.579.2.462 Unknown [id number] 2.840.1.972715.3.579.2.462 Unknown [id number] 2.16.840.1.532371.3.579.2.462 Unknown [id number] 2.16.840.1.087204.3.579.2.462 Unknown [id number] 2.16.840.1.813624.3.579.2.462 Unknown [id number] 2.16840.1.081154.3.579.2.462 Unknown [id number] 2.16.840.1.167808.3.579.2.462 Unknown [id number] 2.16.840.1.239177.3.579.2.462 Unknown [id number] 2.16.840.1.953256.3.579.2.462 Unknown [id number] 2.16840.1.536660.3.579.2.462 Unknown [id number] 2.840.1.488677.3.579.2.462 Social History Date Type Detail Facility Start: 10-25-2021 End: 08-19-2023 Tobacco smoking status MOIS Unknown if ever smoked [facility] Start: 09-26-2020 Rare [facility] Start: 09-26-2020 None [facility] Start: 09-26-2020 Alone [facility] Start: 09-26-2020 Non-smoker [facility] Start: 1950 Sex Assigned At Female [facility] Start: 12-22-2022 End: 09-16-2024 Tobacco smoking status NHIS Never smoked tobacco [facility] Start: 12-22-2022 Tobacco use and exposure Smokeless tobacco non-user [facility] Start: 12-23-2022 Alcohol intake Lifetime non-d domenica (finding) [facility] Start: 12-22-2022 End: 01-19-2023 History of Social function [facility] Start: 12-22-2022 End: 01-19-2023 Tobacco use panel [facility] Start: 1950 Sex Assigned At Not on file S [facility] Start: 12-13-2022 End: 01-19-2023 Exposure to SARS-CoV-2 (event) Not sure [facility] Start: 12-29-2022 End: 01-19-2023 Alcohol intake Current drinker of alcohol (finding) [facility] Start: 12-29-2022 Alcohol Comment once a year [facility] Within the last year , have you been afraid of your partner or ex-partner? No [facility] Start: 07-14-2024 End: 07-15-2024 Sex Female (finding) [facility] Medical Equipment Procedure Code Equipment Code Equipment [...] Test Strip) strip Start: 02-07-2020 End: 07-17-2021 [facility] n lancets Start: 11-11-2019 End: 11-11-2019 Blood Sugar Diagnostic (True Metrix Glucose Test Strip) strip Start: 07-17-2021 Blood Sugar Diagnostic (True Metrix Glucose Test Strip) strip Start: 02-07-2020 End: 02-07-2020 Blood Sugar Diagnostic (True Metrix Glucose Test Strip) strip Start: 02-07-2020 End: 07-17-2021 [facility] n lancets Start: 11-11-2019 End: 11-11-2019 Blood Sugar Diagnostic (True Metrix Glucose Test Strip) strip Start: 07-17-2021 Blood Sugar Diagnostic (True Metrix Glucose Test Strip) strip Start: 02-07-2020 End: 02-07-2020 Blood Sugar Diagnostic (True Metrix Glucose Test Strip) strip Start: 02-07-2020 End: 07-17-2021 [facility] n lancets Start: 11-11-2019 End: 11-11-2019 Blood Sugar Diagnostic (True Metrix Glucose Test Strip) strip Start: 07-17-2021 Blood Sugar Diagnostic (True Metrix Glucose Test Strip) strip Start: 02-07-2020 End: 02-07-2020 Blood Sugar Diagnostic (True Metrix Glucose Test Strip) strip Start: 02-07-2020 End: 07-17-2021 [facility] n lancets Start: 11-11-2019 End: 11-11-2019 Blood Sugar Diagnostic (True Metrix Glucose Test Strip) strip Start: 07-17-2021 Blood Sugar Diagnostic (True Metrix Glucose Test Strip) strip Start: 02-07-2020 End: 02-07-2020 Blood Sugar Diagnostic (True Metrix Glucose Test Strip) strip Start: 02-07-2020 End: 07-17-2021 [facility] lancets Start: 11-11-2019 End: 11-11-2019 Blood Sugar Diagnostic (True Metrix Glucose Test Strip) strip Start: 07-17-2021 Blood Sugar Diagnostic (True Metrix Glucose Test Strip) strip Start: 02-07-2020 End: 02-07-2020 Blood Sugar Diagnostic (True Metrix Glucose Test Strip) strip Start: 02-07-2020 End: 07-17-2021 [facility] Start: 11-11-2019 End: 11-11-2019 Blood Sugar Diagnostic (True Metrix Glucose Test Strip) strip Start: 07-17-2021 Lancets (Bd Ultr a Fine Lancets) 33 gauge misc Start: 04-02-2022 Blood Sugar Diagnostic (True Metrix Glucose Test Strip) strip Start: 02-07-2020 End: 02-07-2020 Blood Sugar Diagnostic (True Metrix Glucose Test Strip) strip Start: 02-07-2020 End: 07-17-[address] [facility] n lancets Start: 11-11-2019 End: 11-11-2019 Blood Sugar Diagnostic (True Metrix Glucose Test Strip) strip Start: 07-17-2021 Lancets (Bd Ultr a Fine Lancets) 33 gauge misc Start: 04-02-2022 Blood Sugar Diagnostic (True Metrix Glucose Test Strip) strip Start: 02-07-2020 End: 02-07-2020 Blood Sugar Diagnostic (True Metrix Glucose Test Strip) strip Start: 02-07-2020 [facility]: 11-11-2019 End: 11-11-2019 Blood Sugar Diagnostic (True Metrix Glucose Test Strip) strip Start: 07-17-2021 Lancets (Bd Ultr a Fine Lancets) 33 gauge misc Start: 04-02-2022 Blood Sugar Diagnostic (True Metrix Glucose Test Strip) strip Start: 02-07-2020 End: 02-07-2020 Blood Sugar Diagnostic (True Metrix Glucose Test Strip) strip Start: 02-07-2020 End[facility] Start: 11-11-2019 End: 11-11-2019 Blood Sugar Diagnostic (True Metrix Glucose Test Strip) strip Start: 07-17-2021 Lancets (Bd Ultr a Fine Lancets) 33 gauge misc Start: 04-02-2022 Blood Sugar Diagnostic (True Metrix Glucose Test Strip) strip Start: 02-07-2020 End: 02-07-2020 Blood Sugar Diagnostic (True Metrix Glucose Test Strip) strip Start: 02-07-2020 End: 07-17-[address] [facility] n lancets Start: 11-11-2019 End: 11-11-2019 Blood [...] Strip) strip Start: 02-07-2020 End: 07-17-2021 [facility] lanc[facility] Start: 11-11-2019 End: 11-11-2019 Blood Sugar Diagnostic (True Metrix Glucose Test Strip) strip Start: 07-17-2021 Lancets (Bd Ultr a Fine Lancets) 33 gauge misc Start: 04-02-2022 Blood Sugar Diagnostic (True Metrix Glucose Test Strip) strip Start: 02-07-2020 End: 02-07-2020 Blood Sugar Diagnostic (True Metrix Glucose Test Strip) strip Start: 02-07-2020 End: 07-17-[address] [facility] n lancets Start: 11-11-2019 End: 11-11-2019 Blood Sugar Diagnostic (True Metrix Glucose Test Strip) strip Start: 07-17-2021 Lancets (Bd Ultr a Fine Lancets) 33 gauge misc Start: 04-02-2022 Blood Sugar Diagnostic (True Metrix Glucose Test Strip) strip Start: 02-07-2020 End: 02-07-2020 Blood Sugar Diagnostic (True Metrix Glucose Test Strip) strip Start: 02-07-2020 End: 07-17-[address] [facility] n lancets Start: 11-11-2019 End: 11-11-2019 Blood Sugar Diagnostic (True Metrix Glucose Test Strip) strip Start: 06-17-2023 Lancets Start: 06-17-2023 Blood Sugar Diagnostic (True Metrix Glucose Test Strip) strip Start: 02-07-2020 End: 02-07-2020 Blood Sugar Diagnostic (True Metrix Glucose Test Strip) strip Start: 02-07-2020 End: 07-17-2021 Blood Sugar Diagnostic (True Metrix Glucose Test Strip) strip Start: 07-17-2021 End: 06-17-[address] [facility] lancets Start: 11-11-2019 End: 11-11-2019 Lancets [...] Strip) strip Start: 07-17-2021 End: 06-17-2023 [facility] lanc[facility] Start: 11-11-2019 End: 11-11-2019 [...] Strip) strip Start: 07-17-2021 End: 06-17-[address] [facility] lancets Start: 11-11-2019 End: 11-11-2019 Lancets [...] Strip) strip Start: 07-17-2021 End: 06-17-2023 [facility] lanc[facility] Start: 11-11-2019 End: 11-11-2019 [...] Strip) strip Start: 07-17-2021 End: 06-17-2023 [facility] lanc[facility] Start: 11-11-2019 End: 11-11-2019 [...] Strip) strip Start: 07-17-2021 End: 06-17-2023 [facility] lanc[facility] Start: 11-11-2019 End: 11-11-2019 [...] Strip) strip Start: 07-17-2021 End: 06-17-2023 [facility] lanc[facility] Start: 11-11-2019 End: 11-11-2019 [...] Strip) strip Start: 07-17-2021 End: 06-17-2023 [facility] lanc[facility] Start: 11-11-2019 End: 11-11-2019 [...] Strip) strip Start: 07-17-2021 End: 06-17-[address] [facility] lancets Start: 11-11-2019 End: 11-11-2019 Lancets [...] Strip) strip Start: 07-17-2021 End: 06-17-2023 [facility] Start: 11-11-2019 End: 11-11-2019 Lancets (Bd Ultr a Fine Lancets) 33 gauge misc Start: 04-02-2022 End: 06-17-2023 Goals Date Patient Goal Desired Activity /State Functional Status Date Assessment Result Facility 01-26-2023 Functional status Chair [facility] Work Phone: 01-24-2023 Functional status Well [facility] Work Phone: 12-19-2022 Functional status Bedrest [facility] Work Phone: 01-03-2022 Functional status Ambulates [facility] Work Phone: 01-03-2022 Functional status None [facility] Work Phone: Mental Status Date Assessment Result Facility 09-16-2024 Cognitive function Voice/Name [facility] Work Phone: 07-15-2024 Cognitive function Awake;Alert;A ppropriate;Follow s Commands [facility] Work Phone: 01-26-2023 Cognitive function Voice/Name [facility] Work Phone: 12-19-2022 Cognitive function Voice/Name [facility] Work Phone: 12-18-2022 Cognitive function Level Of Cons ciousness Awake;Alert [facility] Work Phone: 08-13-2022 Cognitive function Voice/Name [facility] Work Phone: 06-07-2022 Cognitive function Level Of Cons ciousness Awake;Alert;Appropriate [facility] Work Phone: 06-06-2022 Cognitive function Awake;Alert;A ppropriate;Follow s Commands [facility] Work Phone: 03-14-2022 Cognitive function Voice/Name [facility] Work Phone: 01-03-2022 Cognitive function Voice/Name [facility] Work Phone: 12-17-2021 Cognitive function Level Of Cons ciousness Awake;Alert;Appropriate [facility] Work Phone: 10-25-2021 Cognitive function Awake;Drowsy [facility] Work Phone: Clinical Notes 06-07-2022 to 09-16-2024 Note Date & Type Note Facility 09-16-2024 Radiology Diagnostic study note [facility] 08-10-2024 Evaluation note Diagnosis Onset Date Resolution Essential (primary) hypertension chronic August 10, 2024 10:37am Osteoporosis chronic August 10, 025 10:37am Rheumatoid arthritis chronic Apr2024 10:37am Type 2 diabetes mellitus chronic August 10, 2024 10:37am Anemia acute September 19, 2024 8:51am Atherosclerotic heart disease of [place] coronary artery without angina pectoris chronic September 19, 2024 8:51am Chest wall tenderness chronic September 19, 2024 8:51am Chronic diastolic CHF (congestive heart failure) chronic September 19, 2024 8:51am Essential (primary) hypertension chronic September 19, 2024 8:51am History of coronary artery bypass graft chronic September 19 8:51am Hyperlipidemia chronic September 19, 2024 8:51am Peripheral edema inactive September 8:51am Essential (primary) hypertension chronic September 21, 2024 10:36am Keloid scar of skin chronic September 022024 10:36am Rheumatoid arthritis chronic September 21, 2024 10:36am Peripheral edema inactive September 10:36am Obesity chronic September 28, 2024 12:32pm LINA (obstructive sleep apnea) chronic September 28, 2024 12:32pm Fatigue chronic October 03, 2024 11:04am Epilepsy, unspecified, not intractable, without status epilepticus chronic November 07 11:01am [facility] Work Phone: 1(356) 542-631103-14-2025 Radiology Diagnostic study [facility]03-14-2025 Discharge summary Author Felix Acosta [facility] Note Date/Time July 15, 2024 4:1 7pm [facility] Medical Records Department [address] [place] [address] Emergency Department Summary 07/15/24 MR#: [id number] Acct: [id number] Name: LACY ALVARADO Rep #:[id number] : 1950 73 From: Felix Acosta [...] similar symptoms: No Recent Illness/Hospitalization: No PFSH PFS Medical History Vertigo Chest pain Dyspnea on [...] FOOT HEEL SPUR Atherosclerotic heart disease of [place] coronary artery without angina pectoris Rheumatoid arthritis [...] denosumab 60 mg/mL subcutaneous 60 mg subcut [id number] [facility] 01/19/24 Unknown Rx syringe (Prolia) [...] all extremities and no focal motor deficits [place] Coma Scale: document GCS findings Spontaneous Extensor [...] IMPRESSION: No acute cardiopulmonary process. Reading Location: [facility] Chest x-ray, 2 views, AP and lateral, [...] rate in 90s no acute signs of MD EMEA. No dysrhythmia. Discharge Plan Triage Chief [...] mg PO QWEEK Patient Comments: takes on thursdayuvia 100 mg tablet See Rx Instructions .ROUTE [...] Prolia 60 mg/mL syringe 60 mg subcut [id number] Qty: 1 2RF atorvastatin 80 mg tablet [...] your doctor if not improving. Print Language: German Disposition Disposition: Home, Self Care What to do if you have Problems For any increased pain, shortness of breath, bleeding, nausea or vomiting, chestpain, or any unexpected problems, contact your Primary Care Provider. Call [facility] ([phone]) or report to the closest Emergency Room. Call 911 if necessary. 07/15/24 1617 <Electronically signed by Felix Acosta MD> Cosigner Signature (if applicable): CC: Dr. Mayda Garcia MD ~ Signed [facility] Work Phone: 1(317) 374-109903-13-2025 Radiology Diagnostic study [facility]03-13-2025 Discharge summary Author Ulisses Chan [facility] Note Date/Time July 14, 2024 8:2 1pm [facility] Medical Records Department [address] [facility] [place] [address] Emergency Department Summary 07/14/24 MR#: [id number] Acct: [id number] Name: LACY ALVARADO Rep #:[id number] : 1950 73 From: Ulisses Alvarez PCP: Dr. Mayda Garcia MD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 Individual Co-treatment Time In 0839 Time Out 0918 Minutes 39 Timed Code Treatment Minutes: 39 Minutes (FA, GT. TP) FORMS DESIGNER wore PPE in compliance with hospital guidelines and regulation when treating this patient. Samaria Li, FORMS DESIGNER * Chandler Ram, HEALTH CLUB ATTENDANT - PROFESSOR OF SPANISH - 01/08/2023 6:04 AM EDT Images from the original note were not included. Cardiothoracic Surgery/CCM Progress Note PATIENT NAME: Lacy Alvarado DATE: 01/08/23 HPI: 72 y.o. female was referred by Dr. Bhanu Milian. Patient was admitted on 12/18/22 to [facility] with CP history of CHF, CAD, DM [...] Conversationsongoing with family about living arrangements at [place]. Review of Systems Constitutional: Negative for chills, [...] EF: Normal (01/01/23) Blood Conservation: Transfused post-op. Echo Vascular Technologist: [facility] * Talita Haque RD - [...] provided with heart healthy diet handout with [facility] RD phone number at initial [...] muscle mass loss Fluid Accumulation: Mild Extremities Gemologist Strength: Not Performed Nutrition Assessment: Pt with PMH including HTN, DM, HLD, CHF, RA, epilepsy, GERD, LINA, prior PCI, presented to [facility] on 01/01/23 for CABG after recent admissiont to [facility] on 12/18/22 and had LHC which showed [...] On: Kcal/kg Weight Used for Energy Requirements: Varnell (25-30 kcal/kg) Weight for Energy Calculation (kg): 50 kg Total Energy Requirements (kcals/day): 4750-0506 Weight Used for Protein Requirements: Varnell (1.2-1.5 g/kg) Weight in Kg Used for [...] Weight: 78 kg (172 lb) (no method) Varnell Body Weight (lbs) (Calculated): 110 lbs Varnell Body Weight (Kg) (Calculated): 50 kg % Varnell Body Weight (Calculated): 157.9 % BMI (kg/m2) [...] to determine Talita Haque RD, LD Contact: *[phone] or via [email or web address] chat * Kristel Beard MD - 01/07/2023 11:03 AM EDT Department of Internal Medicine Division of Endocrinology, Diabetes, & Metabolism Endocrinology Note Patient Name: Lacy Alvarado : 1950 AGE: 72 y.o. Room/Bed: T1-103/T1-103 A Admission Date: 01/01/2023 Visit Date: 01/07/2023 Reason for Endocrine Consult: post op heart Provider/Team Requesting Consult: cts PCP: MAYDA Marspt Propellant Charge Zone Assembler: No ASSESSMENT: DM 2 with hyperglycemia without snf insulin Stress hyperglycemia CAD s/p Cabgx4 PLAN: [...] found for: CHOLHDLRATIO No results found for: [id number] No results found for: TSH, N4YOAXL, P6VHUEV, THYROIDAB Radiology reportsas per the Radiologist Radiology: [...] the date of this note. * Samaria Li FORMS DESIGNER - 01/07/2023 10:41 AM EDT Physical Therapy Facility/Department: [facility] Physical Therapy Daily Treatment Note NAME: Lacy Alvarado : 1950 Date of Service: 01/07/2023 Discharge Recommendations: IP Rehab, Senior Living Facility PT Equipment Recommendations Equipment Needed: No [...] The primary encounter diagnosis was CAD in [place] artery. A diagnosis of Coronary artery disease involving coronary bypass graft, unspecified whether angina present, unspecified whether [place] or transplanted heart was also pertinent to this visit. has a past medical history of CHF (congestive heart failure) ([facility]/HCC) ([facility]), Diabetes mellitus ([facility]), GERD (gastroesophageal reflux disease), Hyperlipidemia, Hypertension, RA (rheumatoid arthritis) ([facility]), Seizure ([facility]), Seizures ([facility]), and Sleep apnea. has a past surgical [...] / Caregiver Present: No Diagnosis: CAD in [place] artery s/p CABG on 01/01 Follows Commands: [...] Individual Co-treatment Time In 0842 Time Out 24 Minutes 42 Timed Code Treatment Minutes: 42 Minutes (FA, GT x 2) FORMS DESIGNER wore PPE in compliance with hospital guidelines and regulation when treating this patient. Samaria Li, FORMS DESIGNER * Shruthi Weaver, HEALTH CLUB ATTENDANT - PROFESSOR OF SPANISH - 01/07/2023 5:53 AM EDT Images from the original note were not included. Cardiothoracic Surgery/[facility] Progress Note PATIENT NAME: Lacy Alvarado DATE: 01/07/23 HPI: 72 y.o. female was referred by Dr. Bhanu Milian. Patient was admitted on 12/18/22 to [facility] with CP history of CHF, CAD, DM [...] Recent Labs 01/05/23 0041 01/06/23 0034 01/07/23 024 NA 137 136 137 K 3.8 3.9 4.2 CL 98 98 101 CO2 27 27 27 BUN 43* 39* 30* CREATININE 1.25* 0.99 0.91 CALCIUM 8.5 8.6 8.5 MG 2.8* 2.7* 2.4* CBC: Recent Labs 01/05/23 0041 01/06/23 0034 01/07/23 024 WBC 6.7 5.6 5.4 HGB 9.9* 10.2* [...] EF: 01/01: Normal Blood Conservation: Transfused postop Echo Vascular Technologist: [facility] * Wendy Cassidyults - 01/06/2023 11:33 AM EDT Occupational Therapy Facility/Department: Occupational Therapy Initial Evaluation [...] The primary encounter diagnosis was CAD in [place] artery. A diagnosis of Coronary artery disease involving coronary bypass graft, unspecified whether angina present, unspecified whether [place] or transplanted heart was also pertinent to this visit. has a past medical history of CHF (congestive heart failure) (CMS/HCC) ([facility]), Diabetes mellitus (HCC), GERD (gastroesophageal reflux disease), Hyperlipidemia, Hypertension, RA (rheumatoid arthritis) ([facility]), Seizure (HCC), Seizures (HCC), and Sleep apnea. [...] Daily Activity Raw Score: 22 ADL Inpatient [facility] G-Code Modifier: CJ Goals Encounter Problems Encounter [...] Plan of Care supervision is transferred to [facility] Occupational Therapist. Goals and/or treatment plan was established in collaboration with patient/family/other representatives. Wnedy Curran S/OT * Samaria Li PTA - 01/06/2023 10:07 AM EDT Physical Therapy Facility/Department: [facility] Physical Therapy Daily Treatment Note NAME: [...] The primary encounter diagnosis was CAD in [place] artery. A diagnosis of Coronary artery disease involving coronary bypass graft, unspecified whether angina present, unspecified whether [place] or transplanted heart was also pertinent to this visit. has a past medical history of CHF (congestive heart failure) (CMS/HCC) ([facility]), Diabetes mellitus ([facility]), GERD (gastroesophageal reflux disease), Hyperlipidemia, Hypertension, RA (rheumatoid arthritis) ([facility]), Seizure ([facility]), Seizures ([facility]), and Sleep apnea. has a past surgical [...] / Caregiver Present: No Diagnosis: CAD in [place] artery s/p CABG on 01/01 Follows Commands: [...] understanding Therapy Time Individual Co-treatment Time In 801 Time Out 0842 Minutes 40 Timed Code Treatment Minutes: 40 Minutes (FA, GT, TP) FORMS DESIGNER wore PPE in compliance with hospital guidelines and regulation when treating this patient. Samaria Li, FORMS DESIGNER * Shruthi Weaver, HEALTH CLUB ATTENDANT - PROFESSOR OF SPANISH - 01/06/2023 6:06 AM EDT Images from the original note were not included. Cardiothoracic Surgery/[facility] Progress Note PATIENT NAME: Lacy Alvarado DATE: 01/06/23 HPI: 72 y.o. female was referred by Dr. Bhanu Milian. Patient was admitted on 12/18/22 to [facility] with CP history of CHF, CAD, DM [...] CXR: BMP: Recent Labs 01/04/2330801/05/23 0041 01/06/23 003 NA 135 137 136 K 3.9 3.8 3.9 CL 100 98 98 CO2 26 27 27 BUN 34* 43* 39* CREATININE 1.11* 1.25* 0.99 CALCIUM 8.5 8.5 8.6 MG 2.6* 2.8* 2.7* CBC: Recent Labs 01/04/2330801/05/23 0041 01/06/23 0034 WBC 7.9 6.7 5.6 [...] EF: 01/01: Normal Blood Conservation: Transfused postop Echo Vascular Technologist: [facility] Associated attestation - [place] [...] Alvarado : 1950 AGE: 72 y.o. Room[facility]Bed: [facility] Admission Date: 01/01/2023 Visit Date: 01/05/2023 Reason for Endocrine Consult: post op heart Provider/Team Requesting Consult: [facility] PCP: MAYDA GARCIA Outpt Propellant Charge Zone Assembler: No ASSESSMENT: DM 2 with hyperglycemia without snf insulin Stress hyperglycemia CAD s/p Cabgx4 PLAN: [...] found for: CHOLHDLRATIO No results found for: [id number] No results found for: TSH, W4RCSBX, M0PSPUL, THYROIDAB Radiology reportsas per the Radiologist Radiology: ECG 12 lead Result Date: 01/01/2023 Sinus rhythm History/Other: Past Medical History: Past Medical History: Diagnosis Date CHF (congestive heart failure) ([facility]/HCC) ([facility]) Diabetes mellitus (HCC) GERD (gastroesophageal reflux disease) Hyperlipidemia Hypertension RA (rheumatoid arthritis) ([facility]) Seizure (HCC) last seizure 5 months ago nathaniel murray 08/24 Seizures ([facility]) Sleep apnea Past Surgical History: Past Surgical [...] date of this note. * Chandler Ram, HEALTH CLUB ATTENDANT - PROFESSOR OF SPANISH - 01/05/2023 6:19 AM EDT Images from the original note were not included. Cardiothoracic Surgery/CCM Progress Note PATIENT NAME: Lacy Alvarado DATE: 01/05/23 HPI: Lacy Alvarado is a 72 y.o. female was referred to us by Dr. Bhanu Milian. Patient was admitted on12/18/22 to [facility] with CP history of CHF, CAD, DM [...] SCDs Disposition: Recommending IPR. Patient lives on , would likely benefit from rehab. Start process Thursday, when able. Central Line: []Yes [x] No Arterial Line: []Yes [x] No Araya: []Yes [x] No Restraints: []Yes [x] No Patient discussed and plan of day developed from multidisciplinary rounds between Cardiothoracic Surgery (Cardiothoracic Surgeon, SONYA) and Critical Care Attending Cardiac Core Medications: ASA, Statin, and BB EF: Nomal (SIS 01/01/23) Blood Conservation: Transfused post-op. Echo Vascular Technologist: [facility] Associated attestation - [place] [...] 01/04/2023 1:07 PM EDT Physical Therapy Facility/Department: [facility] Physical Therapy Daily Treatment Note NAME: [...] her apartment. Currently, recommend IP Rehab at [facility]. Performance Deficits/Impairments: Decreased functional mobility , Decreased endurance, Increased pain, Decreased ADL status, Decreased strength, Decreased posture, Decreased balance Decision Making: Medium Complexity Patient Diagnosis(es): The primary encounter diagnosis was CAD in [place] artery. A diagnosis of Coronary artery disease involving coronary bypass graft, unspecified whether angina present, unspecified whether [place] or transplanted heart was also pertinent to this visit. has a past medical history of CHF (congestive heart failure) (CMS/HCC) ([facility]), Diabetes mellitus ([facility]), GERD (gastroesophageal reflux disease), Hyperlipidemia, Hypertension, RA (rheumatoid arthritis) ([facility]), Seizure ([facility]), Seizures ([facility]), and Sleep apnea. has a past surgical [...] / Caregiver Present: No Diagnosis: CAD in [place] artery s/p CABG on 01/01 Follows Commands: [...] Plan of Care supervision is transferred to [facility] Rehab Department Physical Therapist. Ambreen Avitia PT * Angela Smith MD - 01/04/2023 10:34 AM EDT Department of Internal Medicine Division of Endocrinology, Diabetes, & Metabolism Endocrinology Note Patient Name: Lacy Alvarado : 1950 AGE: 72 y.o. [facility] A Admission Date: 01/01/2023 Visit Date: 01/04/2023 Reason for Endocrine Consult: post op heart Provider/Team Requesting Consult: cts PCP: MAYDA GARCIA Outpt Propellant Charge Zone Assembler: No ASSESSMENT: DM 2 with hyperglycemia without meal temperer insulin Stress hyperglycemia CAD s/p Cabgx4 PLAN: [...] found for: CHOLHDLRATIO No results found for: [id number] No results found for: TSH, H3MXLVO, M7WNYVY, THYROIDAB Radiology reportsas per the Radiologist Radiology: [...] date of this note. * Chandler Ram, HEALTH CLUB ATTENDANT - PROFESSOR OF SPANISH - 01/04/2023 6:02 AM EDT Images from the original note were not included. Cardiothoracic Surgery/[facility] Progress Note PATIENT NAME: Lacy Alvarado DATE: 01/04/23 HPI: Lacy Alvarado is a 72 y.o. female was referred to us by Dr. Bhanu Milian. Patient was admitted on12/18/22 to [facility] with CP history of CHF, CAD, DM [...] -- CBC: Recent Labs 01/02/23 0002 01/03/23 00101/04/23 0309 WBC 6.1 8.6 7.9 HGB 8.7* [...] Nomal (SIS 01/01/23) Blood Conservation: Transfused post-op. Echo Vascular Technologist: [facility] * Angela Smith MD - 01/03/2023 9:18 AM EDT Department of Internal Medicine Division of Endocrinology, Diabetes, & Metabolism Endocrinology Note Patient Name: Lacy Alvarado : 1950 AGE: 72 y.o. Room/Bed: [facility] A Admission Date: 01/01/2023 Visit Date: 01/03/2023 Reason for Endocrine Consult: post op heart Provider/Team Requesting Consult: cts PCP: MAYDA GARCIA Outpt Propellant Charge Zone Assembler: No ASSESSMENT: DM 2 with hyperglycemia without snf insulin Stress hyperglycemia CAD s/p Cabgx4 PLAN: [...] found for: CHOLHDLRATIO No results found for: [id number] No results found for: TSH, C5AOWCO, U8KBRUR, THYROIDAB Radiology reportsas per the Radiologist Radiology: ECG 12 lead Result Date: 01/01/2023 Sinus rhythm History/Other: Past Medical History: Past Medical History: Diagnosis Date CHF (congestive heart failure) ([facility]/HCC) (HCC) Diabetes mellitus (HCC) GERD (gastroesophageal reflux [...] date of this note. * Chandler Ram, HEALTH CLUB ATTENDANT - PROFESSOR OF SPANISH - 01/03/2023 5:56 AM EDT Images from the original note were not included. Cardiothoracic Surgery/[facility] Progress Note PATIENT NAME: Lacy Alvarado DATE: 01/03/23 HPI: Lacy Alvarado is a 72 y.o. female was referred to us by Dr. Bhanu Milian. Patient was admitted on12/18/22 to [facility] with CP history of CHF, CAD, DM [...] Nomal (SIS 01/01/23) Blood Conservation: Transfused post-op. Echo Vascular Technologist: [facility] * Aleksandr Higuera, PT - 01/02/2023 11:02 AM EDT Physical Therapy Facility/Department: [facility] Physical Therapy Initial Evaluation NAME: Lacy [...] The primary encounter diagnosis was CAD in [place] artery. A diagnosis of Coronary artery disease involving coronary bypass graft, unspecified whether angina present, unspecified whether [place] or transplanted heart was also pertinent to this visit. has a past medical history of CHF (congestive heart failure) (CMS/HCC) ([facility]), Diabetes mellitus ([facility]), GERD (gastroesophageal reflux disease), Hyperlipidemia, Hypertension, RA (rheumatoid arthritis) ([facility]), Seizure ([facility]), Seizures ([facility]), and Sleep apnea. has a past surgical [...] / Caregiver Present: No Diagnosis: CAD in [place] artery s/p CABG on 01/01 Follows Commands: [...] Therapy Time Individual Co-treatment Time In 0930 (one eval mod complex, one FA) Time Out 0955 Minutes 25 Timed Code Treatment Minutes: 8 Minutes PT wore gloves throughout entire session with patient. Patient s Physical Therapy Plan of Care supervision is transferred to [facility] Rehab Department Physical Therapist. Aleksandr Higuera, PT * Cassandra Olivarez, GORDO - ROD CUP FILLER - 01/02/2023 9:28 AM EDT Department of Internal Medicine Division of Endocrinology, Diabetes, & Metabolism Endocrinology Note Patient Name: Lacy Alvarado : 1950 AGE: 72 y.o. Room/Bed: T1-103/T1-103 A Admission Date: 01/01/2023 Visit Date: 01/02/2023 Reason for Endocrine Consult: post op heart Provider/Team Requesting Consult: cts PCP: MAYDA GARCIA Outpt Propellant Charge Zone Assembler: No ASSESSMENT: Cad s/p Cabgx4 Dm2 with hyperglycemia without meal temperer insulin Stress hyperglycemia Chf Hld/htn PLAN: discontinue [...] regular, 1-50 Units/hr, Last Rate: Stopped (01/02/23 3079) nitroprusside, 0.1-3 mcg/kg/min, Last Rate: Stopped (01/02/23 7980) PRN Meds:PRN medications: calcium gluconate, dextrose, dextrose, [...] found for: CHOLHDLRATIO No results found for: [id number] No results found for: TSH, R9LKZWN, P8KSIKP, THYROIDAB Radiology reportsas per the Radiologist Radiology: ECG 12 lead Result Date: 01/01/2023 Sinus rhythm History/Other: Past Medical History: Past Medical History: Diagnosis Date CHF (congestive heart failure) ([facility]/HCC) (HCC) Diabetes mellitus (HCC) GERD (gastroesophageal reflux [...] of care as documented in note. * Chandler Ram APRN - PROFESSOR OF SPANISH - 01/02/2023 5:56 AM EDT Images from the original note were not included. Cardiothoracic Surgery/[facility] Progress Note PATIENT NAME: Lacy Alvarado DATE: 01/02/23 HPI: Lacy Alvarado is a 72 y.o. female was referred to us by Dr. Bhanu Milian. Patient was admitted on12/18/22 to [facility] with CP history of CHF, CAD, DM [...] Nomal (SIS 01/01/23) Blood Conservation: Transfused post-op. Echo Vascular Technologist: [facility] Associated attestation - Carlos Chavarria [...] care time 35 minutes documented in this [facility]09-09-2023 Note* Care Coordination - Alaina Truong RN - 01/10/2023 2:11 PM EDT Images from the original note were not included. CARE COORDINATION DAILY NOTE/UPDATE Medical Plan: sp CABG x 3 POD # 9. Discharge Plan: [facility] Transitional Care Unit Discharge Barriers: pending medical clearance Received a message from Anna COLLINS I heard from [facility] okay to admit. Stated by Shruthi Marshall [...] RN 01/02/2023 2:07 PM 01/06/2023 Shruthi Weaver, HEALTH CLUB ATTENDANT - PROFESSOR OF SPANISH 01/01/2023 11:16 AM 01/06/2023 Azam Rose MD 01/01/2023 5:45 AM Length of Stay (Days): 9 GMLOS: 5.9 [id number]* Care Coordination - Delores Mullins RN - 01/09/2023 10:21 AM EDT Images from the original note were not included. Care Management Progress Note Patient remains on HLU sp CABG x 3 POD # 8. [facility] can accept, spoke [...] RN 01/02/2023 2:07 PM 01/06/2023 Shruthi Weaver, HEALTH CLUB ATTENDANT - PROFESSOR OF SPANISH 01/01/2023 11:16 AM 01/06/2023 Azam Rose MD 01/01/2023 5:45 AM Length of Stay (Days): 8 GMLOS: 5.9 [facility] [id number] Hospital Discharge instructions* Discharge Instructions* GORDO Felix CNP - 01/09/2023 8:42 AM EDT Cardiothoracic Surgery: Symptom Management Office phone number: [phone] Office is open 8:30 am -4 pm. [...] Call cardiothoracic surgery line for further instructions: [phone] Office is open 8:30 am -4 pm. [...] Samuel Mobile Relation: Mother Secondary Emergency Contact: Bhupnider Gomez Mobile Relation: Niece Past Surgical History: Past Surgical History: Procedure Laterality Date CARDIAC CATHETERIZATION COLONOSCOPY CORONARY STENT PLACEMENT 03/22/2018 HYSTERECTOMY Immunization History: Immunization History Administered Date(s) Administered Moderna SARS-CoV-2 Vaccination 07/11/2020, 08/09/2020, 05/24/2021 Active Problems: Medical Problems Problem List * (Principal) CAD in [place] artery Allergic disorder Amnesia Arthritis Overview Signed [...] DM2 (diabetes mellitus, type 2) ([facility]) Overview Signed 01/01/2023 3:09 PM by Juan [...] Zuluaga MD DME: Camacho Titration done @ [facility] 03/08/2012 recommended CPAP @ 11 cm of [...] assistance Toileting Minimal assistance Feeding Minimal assistance Resident Care Assistant Independent Med Delivery yes Wound Care Documentation [...] Score: @READMISSIONRISKDETAILS@ Discharging to Facility/ Agency Name: [facility] Address: [address] [place] [address] Fax: Dialysis Facility (if applicable) Name: Address: Dialysis Schedule: Phone: Fax: Diamond Wheel Edger/Director Of Field Sales signature: ICIAN SECTION Prognosis: good Condition at [...] the diagnosis listed and that she requires group home facility for less than 30 days. Update Admission H&P: Changes in H&P as follows: see below 72 y.o. female was referred by Dr. Bhanu Milian. Patient was admitted on 12/18/22 to [facility] with CP history of CHF, CAD, DM [...] through Care Everywhere. * Heart Healthy Diet (German) documented in this encounterSKettering Health [id number] Note* Care Coordination - Good Jnag - 01/09/2023 8:15 AM EDT Referral placed to [facility] via [facility] per [facility] request. Referral placed to [facility] via fax # [phone] to Shauna in Admissions Await review and response regarding ability to accept. [facility] notified. [facility] [id number] Note* Care Coordination - Good Jang - 01/08/2023 3:06 PM EDT Referral placed to SNF- [facility] via [facility] per [facility] request. Await review and response regarding ability to accept. [facility] notified. [facility] [id number] Note* Care Coordination - Delores Mullins RN - 01/08/2023 2:36 PM EDT Spoke with patient at bedside, nipema Holloway over the phone to discuss therapy recommendations. Agreeable to SNF, [facility] SN[facility] and 2nd choice [facility]. [facility] [id number] Note* Care Coordination - Delores Mullins RN - 01/07/2023 2:18 PM EDT Images from the original note were not included. Care Management Progress Note Patient remains on HLU s/p CABG x 3 POD # 6. PT continuing to recommend IPR vs SNF. [facility] unable to accept patient, [facility], patient and niece declining SNF, discharge plan is home with [facility]. [facility] to follow for updated therapy recs [...] RN 01/02/2023 2:07 PM 01/06/2023 Shruthi Weaver, HEALTH CLUB ATTENDANT - PROFESSOR OF SPANISH 01/01/2023 11:16 AM 01/06/2023 Azam Rose MD 01/01/2023 5:45 AM Length of Stay (Days): 6 GMLOS: 5.9 [facility] CenterUoupin69-63-1554 NoteReceived referral and reviewed chart. Phase II Cardiac Rehab Referral discussed with Lacy Alvarado. Patient prefers cardiac rehab at [facility]. Given information on cardiac rehab at preferred location. 09-05-2023 Note* Care Coordination - Delores Mullins RN - 01/06/2023 1:01 PM EDT [facility] unable to accept patient, too functional. Updated patient at bedside and alyssa Holloway (HCPMARISOL) over the phone. Declined SNF at this time, would like to plan discharge home with HHC including PT/OT/SN/BLENDER MACHINE OPERATOR if possible. Will updated [facility], CTS LEAD RECOVERER aware. [facility] [id number] Consult note* Faiza Thomas - 01/06/2023 11:33 AM EDTAssociated Order(s): IP CONSULT TO CARDIAC REHAB Received referral and reviewed chart. Phase II Cardiac Rehab Referral discussed with Lacy Alvarado. Patient prefers cardiac rehab at [facility]. Given information on cardiac rehab at preferred location. [facility] [id number] Consult note* Faiza Thomas - 01/06/2023 11:33 AM EDTAssociated Order(s): IP CONSULT TO CARDIAC REHAB Received referral and reviewed chart. Phase II Cardiac Rehab Referral discussed with Lacy Alvarado. Patient prefers cardiac rehab at [facility]. Given information on cardiac rehab at preferred location. * Talita Haque, RD - 01/02/2023 12:30 PM [...] heart healthy diet handout at bedside with [facility] RD phone number. 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 Pt underwent CABG x 4 01/01. Extubated with diet ordered. Pt is sleeping in chair at time of RD visit-did not disturb. Provided heart healthy diet handout with [facility] RD phone number for reference at bedside. Estimated Daily Nutrient Needs: Energy Requirements Based On: Kcal/kg Weight Used for Energy Requirements: Varnell (25-30 kcal/kg) Weight for Energy Calculation (kg): 50 kg Total Energy Requirements (kcals/day): 9784-8930 Weight Used for Protein Requirements: Varnell (1.2-1.5 g/kg) Weight in Kg Used for [...] Weight: 78 kg (172 lb) (no method) Varnell Body Weight (lbs) (Calculated): 110 lbs Varnell Body Weight (Kg) (Calculated): 50 kg % Varnell Body Weight (Calculated): 157.9 % BMI (kg/m2) [...] to determine Talita Haque RD, LD Contact: *[phone] or via [email or web address] chat * Kaye Sanchez APRN - PROFESSOR OF SPANISH - 01/01/2023 11:40 AM EDTAssociated Order(s): IP CONSULT TO ENDOCRINOLOGY Department of Internal Medicine Division of Endocrinology, Diabetes, & Metabolism Endocrinology Note Patient Name: Lacy Alvarado : 1950 AGE: 72 y.o. Room/Bed: T1-103/T1-103 A Admission Date: 01/01/2023 Visit Date: 01/01/2023 Reason for Endocrine Consult: post op heart Provider/Team Requesting Consult: cts PCP: MAYDA GARCIA Outpt Propellant Charge Zone Assembler: No ASSESSMENT: Cad s/p Cabgx4 Dm2 with hyperglycemia without snf insulin Stress hyperglycemia Chf Hld/htn PLAN: Continue [...] found for: CHOLHDLRATIO No results found for: [id number] No results found for: TSH, X3VXHLU, T6UBDJP, THYROIDAB Radiology reportsas per the Radiologist Radiology: ECG 12 lead Result Date: 01/01/2023 Sinus rhythm History/Other: Past Medical History: Past Medical History: Diagnosis Date CHF (congestive heart failure) (CMS/HCC) (HCC) Diabetes mellitus (HCC) GERD (gastroesophageal reflux disease) Hyperlipidemia Hypertension RA (rheumatoid arthritis) (HCC) Seizure (HCC) last seizure 5 months ago nathaniel mal 08/24 Seizures (HCC) Sleep apnea Past [...] in note. * Mynor Villareal APRN - PROFESSOR OF SPANISH - 01/01/2023 8:58 AM EDT Images from the original note were not included. [facility]: Critical Care Consultation Note Date: 01/01/23 PATIENT NAME: Lacy Alvarado : 1950 (72 y.o.) Reason for Consult: Critical Care & Vent Management HPI: Lacy Alvarado is a 72 y.o. female was referred to us by Dr. Bhanu Milian. Patient was admitted on12/18/22 to [facility] with CP history of CHF, CAD, DM [...] on 01/01/2023 12/24/22 Kassy Tabares APRN - PROFESSOR OF SPANISH traMADol (Ultram) 50 MG tablet Take 50 [...] PM EDT I have personally performed a agoz-xs-jyhy diagnostic evaluation on this patient on date of /31/23 . History, labs, imaging studies, and electronic medical record have been reviewed by me. This notedocumented by the []mix house operator [x]SONYA reflects my history, exam, and medical [...] CTs No Pacer wires documented in this [facility]09-05-2023 NoteCare Management Progress Note Patient remains on [...] 2:07 PM 01/06/2023 Shruthi Weaver APRN - PROFESSOR OF SPANISH 01/01/2023 11:16 AM 01/06/2023 Azam Rose MD 01/01/2023 5:45 AM Length of Stay (Days): 5 GMLOS: 5.9 09-05-2023 Note* Care Coordination - Delores Mullins RN [...] RN 01/02/2023 2:07 PM 01/06/2023 Shruthi Weaver, HEALTH CLUB ATTENDANT - PROFESSOR OF SPANISH 01/01/2023 11:16 AM 01/06/2023 Azam Rose MD 01/01/2023 5:45 AM Length of Stay (Days): 5 GMLOS: 5.9 [id number] NoteCardiothoracic Surgery/CCM Progress Note PATIENT NAME: Lacy Alvarado DATE: 01/04/23 HPI: Lacy Alvarado is a 72 y.o. female was referred to us by Dr. Bhanu Milian. Patient was admitted on 12/18/22 to [facility] with CP history of CHF, CAD, DM [...] 01/01/23 1010 01/02/23 0002 01/02/23 0921 01/03/23 00101/04/23 0309 NA 140 140 140 136 135 K 3.6 4.5 4.5 4.4 3.9 CL 110* 107 107 103 100 CO2 20* 21* 23 25 26 BUN 21* 19* 20* 23* 34* CREATININE 0.77 0.86 0.99 0.80 1.11* CALCIUM 9.0 8.3* 8.7 8.5 8.5 MG 3.4* 2.3 -- 2.3 2.6* PHOS 3.7 -- -- -- -- CBC: Recent Labs 01/02/23 0002 01/03/23 00101/04/23 0309 WBC 6.1 8.6 7.9 HGB 8.7* [...] Nomal (SIS 01/01/23) Blood Conservation: Transfused post-op. Echo Vascular Technologist: [facility] [id number] NoteCardiothoracic Surgery/CCM Progress Note PATIENT NAME: Lacy Alvarado DATE: 01/03/23 HPI: Lacy Alvarado is a 72 y.o. female was referred to us by Dr. Bhanu Milian. Patient was admitted on 12/18/22 to [facility] with CP history of CHF, CAD, DM [...] Nomal (SIS 01/01/23) Blood Conservation: Transfused post-op. Echo Vascular Technologist: [facility] 09-02-2023 Plan of care note* Care Plan - [...] Interventions Goal: Assess Nutritional Intake Outcome: Progressing [facility] [id number] Note* Home Care - Lisa Yo RN - 01/02/2023 3:39 PM EDT [facility] following case for Discharge Needs. [facility] [id number] NoteNutrition Assessment Type and Reason for Visit: [...] heart healthy diet handout at bedside with [facility] RD phone number. 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 Pt underwent CABG x 4 01/01. Extubated with diet ordered. Pt is sleeping in chair at time of RD visit-did not disturb. Provided heart healthy diet handout with [facility] RD phone number for reference at bedside. Estimated Daily Nutrient Needs: Energy Requirements Based On: Kcal/kg Weight Used for Energy Requirements: Varnell (25-30 kcal/kg) Weight for Energy Calculation (kg): 50 kg Total Energy Requirements (kcals/day): 4305-0734 Weight Used for Protein Requirements: Varnell (1.2-1.5 g/kg) Weight in Kg Used for [...] 78.8 kg (173 lb 11.6 oz) (01/02 [facility]) Admission Body Weight: 78 kg (172 lb) (no method) Varnell Body Weight (lbs) (Calculated): 110 lbs Varnell Body Weight (Kg) (Calculated): 50 kg % Varnell Body Weight (Calculated): 157.9 % BMI (kg/m2) [...] to determine Talita Haque RD, LD Contact: *[phone] or via [employer] [id number] Note* Care Coordination - Delores Mullins RN - 01/02/2023 2:07 PM EDT Care Managment Initial Assessment Date: 01/02/2023 Patient Name: Lacy Alvarado : 1950 Patient Information Source of Information: Patient Cognition/Language: WFL - Within Functional Limits Permission given to speak with patient shared services representative/caregiver as indicated: Yes Confirmation of Payer with patient/family: Yes Payer Name: Anthem Medicare [place]: No Confirmation of Primary Care Physician: Confirmed [...] Living Prescription Coverage: Yes Pharmacy Used: [facility] [place] [facility] Medication Management: Independent Transportation/Shopping: Assistance Provider [...] for home care needs. Delores Mullins RN [facility] [id number] Consult note* Talita Haque RD - 01/02/2023 12:30 PM [...] heart healthy diet handout at bedside with [facility] RD phone number. 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 Pt underwent CABG x 4 01/01. Extubated with diet ordered. Pt is sleeping in chair at time of RD visit-did not disturb. Provided heart healthy diet handout with [facility] RD phone number for reference at bedside. Estimated Daily Nutrient Needs: Energy Requirements Based On: Kcal/kg Weight Used for Energy Requirements: Varnell (25-30 kcal/kg) Weight for Energy Calculation (kg): 50 kg Total Energy Requirements (kcals/day): 5627-2715 Weight Used for Protein Requirements: Varnell (1.2-1.5 g/kg) Weight in Kg Used for [...] 78.8 kg (173 lb 11.6 oz) (01/02 [facility]) Admission Body Weight: 78 kg (172 lb) (no method) Varnell Body Weight (lbs) (Calculated): 110 lbs Varnell Body Weight (Kg) (Calculated): 50 kg % Varnell Body Weight (Calculated): 157.9 % BMI (kg/m2) [...] to determine Talita Haque RD, LD Contact: *[phone] or via [email or web address] chat [facility] [id number] NotePatient: Lacy Alvarado Procedure Summary Date: 01/01/23 Room / Location: [address] Operating Room Anesthesia Start: 657 Anesthesia Stop: 1128 Procedures: CABG AND SIS (Chest) Echocardiography transesophageal real-time Diagnosis: 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 [I25.10]) Surgeons: [...] discharged once all PACU criteria has been met.[facility]08-31-2023 NotePatient: Lacy Alvarado Procedure Summary Date: 01/01/23 Room / Location: [facility] OR [address] [place] [address] Operating Room Anesthesia Start: 657 Anesthesia Stop: 1128 Procedures: CABG AND SIS (Chest) Echocardiography transesophageal real-time Diagnosis: 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 [I25.10]) Surgeons: [...] factors for PONV (4556F) Patient received at aset 2 prophylactic Rx PONV anti-emtic agents of [...] Allowed opportunity for questions and acknowledgement of understanding.[facility] [id number] NoteArterial Line: Date/Time: 01/01/2023 7:05 AM An [...] secured by Tegaderm and tape. Staffing Performed: METAL FORGER'S ASSISTANT Anesthesiologist: Cruzito Frost MD Resident/METAL FORGER'S ASSISTANT: Azar Rojo APRN - BOB Performed by: Azar Rojo APRN - BOB Authorized by: Azar Rojo APRN - [place] [address]-31-2023 Consult note* Kaye Sanchez APRN - [facility] - 01/01/2023 11:40 AM EDTAssociated Order(s): IP CONSULT TO ENDOCRINOLOGY Department of Internal Medicine Division of Endocrinology, Diabetes, & Metabolism Endocrinology Note Patient Name: Lacy Alvarado : 1950 AGE: 72 y.o. Room/Bed: [facility] A Admission Date: 01/01/2023 Visit Date: 01/01/2023 Reason for Endocrine Consult: post op heart Provider/Team Requesting Consult: cts PCP: MAYDA GARCIA Outpt Propellant Charge Zone Assembler: No ASSESSMENT: Cad s/p Cabgx4 Dm2 with hyperglycemia without meal temperer insulin Stress hyperglycemia Chf Hld/htn PLAN: Continue [...] found for: CHOLHDLRATIO No results found for: CAUK43SNT No results found for: TSH, V4WNZHT, O5ZYNXG, THYROIDAB Radiology reportsas per the Radiologist Radiology: [...] coordination of care as documented in note. [employer] Phone: 1(897) 342-523108-31-2023 NoteAirway Date/Time: 01/01/2023 7:08 AM Urgency: scheduled Airway not difficult General Information and Staff Patient location during procedure: Procedural Anesthesiologist: Cruzito Frost MD Resident/METAL FORGER'S ASSISTANT: GORDO Kenney CRNA Performed: METAL FORGER'S ASSISTANT Performed by: GORDO Kenney CRNA Authorized by: [...] attempts: BVM Number of other approaches attempted: [address] [place], [place] [id number] Note Central Venous Line: Date/Time: 01/01/2023 7:26 [...] CRNA Authorized by: Azar Rojo APRN - [facility] Consult note* GORDO Bennett CNP - 01/01/2023 8:58 AM EDT Images from the original note were not included. [facility]: Critical Care Consultation Note Date: 01/01/23 PATIENT NAME: Lacy Alvarado : 1950 (72 y.o.) Reason for Consult: Critical Care & Vent Management HPI: Lacy Alvarado is a 72 y.o. female was referred to us by Dr. Bhanu Milian. Patient was admitted on12/18/22 to [facility] with CP history of CHF, CAD, DM [...] PM EDT I have personally performed a eykg-zk-nglk diagnostic evaluation on this patient on date of /31/23 . History, labs, imaging studies, and electronic medical record have been reviewed by me. This notedocumented by the []mix house operator [x]SONYA reflects my history, exam, and medical [...] air leak in CTs No Pacer wires [employer] Phone: 1([phone]) 452-128808-31-2023 Note* Op Note - Azam Rose MD [...] intraoperative transesophageal echocardiography Surgeon: Azam Rose MD Architectural Project Captain(s): [] Thomas Silva [x] Raymundo Marie [x] Yemi Sharma [] Yemi Tabares [...] Milian. Patient was admitted on 12/18/22 to [facility] with CP. She had a history of [...] with closure. The sternum was reapproximated with nfnung-fb-eybug wires and the overlying tissues were closed in multiple layers. The patient was transported to the intensive care unit in serious but stable condition. [facility]08-28-2023 NotePatient: Lacy Eduardo Procedure Information Date/Time: 01/01/23729 Procedures: CABG AND SIS (Chest) Echocardiography transesophageal real-time Location: [facility] OR [address] [place] [address] Operating Room Surgeons: Azam Rose MD Past Medical History: Past Medical History: No date: CHF (congestive heart failure) ([facility]/HCC) ([facility]) No date: Diabetes mellitus ([facility]) No date: GERD (gastroesophageal reflux disease) No date: Hyperlipidemia No date: Hypertension No date: RA (rheumatoid arthritis) ([facility]) No date: Seizure ([facility]) Comment: last seizure 5 months ago nathaniel mal 08/24 No date: Seizures ([facility]) No date: Sleep apnea Past Surgical History: [...] results found for this or any previous visit.[facility] 12-29-2022 NoteComprehensive Pre Surgical History and Physical ? Name: Lacy Alvarado : 1950 (Age-72 y.o.) Date of Service: Pt seen/examined on 12/29/2022 Procedure Information Date/Time: 01/01/23 0730 Procedures: CABG AND SIS (Chest) Echocardiography transesophageal real-time Location: [facility] OR [facility] Operating Room Surgeons: Azam Rose [...] cardiopulmonary testing. 1) Atherosclerotic heart disease of [place] coronary artery without angina pectoris [I25.10] Pre-op diagnosis: Atherosclerotic heart disease of [place] coronary artery without angina pectoris [I25.10] - [...] who we are asked to see/evaluate by [place] [id number] for pre-operative evaluation prior to . CABG AND SIS (Chest) [40180 CPT(R)] Echocardiography transesophageal real-time [67911 CPT(R)] Anesthesia type: General Reason for Visit: [...] Milian. Patient was admitted on 12/18/22 to [facility] with CP. Per notes, patient has a [...] office note 12/23/2022 ? Denies history of MD, TIA, CVA Past Medical History: Past Medical History: No date: CHF (congestive heart failure) (CMS/HCC) (HCC) No date: Diabetes mellitus (HCC) No date: GERD (gastroesophageal reflux disease) No date: Hyperlipidemia No date: Hypertension No date: RA (rheumatoid arthritis) ([facility]) No date: Seizure (HCC) Comment: last seizure 5 months ago nathaniel murray 08/24 No date: Seizures ([facility]) No date: Sleep apnea Past Surgical History: [...] tablet Take 75 mg (more content not included)...[facility]08-28-2023 NoteComprehensive Pre Surgical History and Physical ? Name: Lacy Alvarado : 1950 (Age-72 y.o.) Date of Service: Pt seen/examined on 12/29/2022 Procedure Information Date/Time: 01/01/23 0730 Procedures: CABG AND SIS (Chest) Echocardiography transesophageal real-time Location: [facility] OR [facility] Operating Room Surgeons: Azam Rose [...] cardiopulmonary testing. 1) Atherosclerotic heart disease of [place] coronary artery without angina pectoris [I25.10] Pre-op diagnosis: Atherosclerotic heart disease of [place] coronary artery without angina pectoris [I25.10] - [...] who we are asked to see/evaluate by [facility] for pre-operative evaluation prior to . CABG AND SIS (Chest) [18465 CPT(R)] Echocardiography transesophageal real-time [31976 CPT(R)] Anesthesia type: General Reason for Visit: [...] Milian. Patient was admitted on 12/18/22 to [facility] with CP. Per notes, patient has a [...] office note 12/23/2022 ? Denies history of MD, TIA, CVA Past Medical History: Past Medical History: No date: CHF (congestive heart failure) ([facility]/HCC) ([facility]) No date: Diabetes mellitus ([facility]) No date: GERD (gastroesophageal reflux disease) No date: Hyperlipidemia No date: Hypertension No date: RA (rheumatoid arthritis) ([facility]) No date: Seizure ([facility]) Comment: last seizure 5 months ago nathaniel trevor 08/24 No date: Seizures ([facility]) No date: Sleep apnea Past Surgical History: [...] swallow. 12/24/22 12/24/22 Kassy Tabares APRN - PROFESSOR OF SPANISH clopidogrel (Plavix) 75 MG tablet Take 75 mg (more content not included)...[facility] [id number] History and physical note* Yolande Serra APRN - PROFESSOR OF SPANISH - 12/29/2022 2:00 PM EDT Images from the original note were not included. Comprehensive Pre Surgical History and Physical ? Name: Lacy Alvarado : 1950 (Age-72 y.o.) Date of Service: Pt seen/examined on 12/29/2022 Procedure Information Date/Time: 01/01/23 0730 Procedures: CABG AND SIS (Chest) Echocardiography transesophageal real-time Location: [facility] OR [facility] Operating Room Surgeons: Azam Rose [...] cardiopulmonary testing. 1) Atherosclerotic heart disease of [place] coronary artery without angina pectoris [I25.10] Pre-op diagnosis: Atherosclerotic heart disease of [place] coronary artery without angina pectoris [I25.10] - [...] who we are asked to see/evaluate by [place] [address] for pre-operative evaluation prior to. CABG AND SIS (Chest) [58214 CPT(R)] Echocardiography transesophageal real-time [17192 CPT(R)] Anesthesia type: General Reason for Visit: [...] Milian. Patient was admitted on 12/18/22 to [facility] with CP. Per notes, patient has a [...] office note 12/23/2022 ? Denies history of MD, TIA, CVA Past Medical History: Past Medical History: No date: CHF (congestive heart failure) ([facility]/HCC) ([facility]) No date: Diabetes mellitus ([facility]) No date: GERD (gastroesophageal reflux disease) No date: Hyperlipidemia No date: Hypertension No date: RA (rheumatoid arthritis) ([facility]) No date: Seizure ([facility]) Comment: last seizure 5 months ago felixnapoleon murray 08/24 No date: Seizures ([facility]) No date: Sleep apnea Past Surgical History: Past Surgical History: No date: CARDIAC CATHETERIZATION No date: COLONOSCOPY 03/22/2018: CORONARY STENT PLACEMENT No date: HYSTERECTOMY Medications Prior to Admission: Prior to Admission medications Medication Sig Start Date End Date Taking? Authorizing Provider aspirin 81 MG EC tablet Take 81 mg by mouth daily. Historical ProviderMD atorvastatin (Lipitor) 80 MG tablet Take 80 mg by mouth daily. Historical ProviderMD calcium citrate (Calcitrate) 950 (200 Ca) MG tablet Take 950 mg by mouth daily. Historical ProviderMD carvedilol (Coreg) 12.5 MG tablet Take by mouth 2 times daily (with meals). Historical Provider, chlorhexidine (Peridex) 0.12 % solution Use 15 mL in the mouth or throat Once for 1 dose. Swish for30 seconds and spit out the night before surgery. Do not swallow. 12/24/22 12/24/22 GORDO Felix CNP clopidogrel (Plavix) 75 MG tablet Take 75 mg by mouth daily. Historical ProviderMD divalproex (Depakote) 500 MG EC tablet Take 1,000 mg by mouth 2 times daily. Do not crush, chew, orsplit. Historical ProviderMD DULoxetine (Cymbalta) [address] capsule Take 30 mg by mouth daily. Do not crush or chew. Historical ProviderMD hydroxychloroquine (Plaquenil) 200 MG tablet Take 200 mg by mouth 2 times daily. Historical ProviderMD isosorbide mononitrate ER (Imdur) 60 MG 24 hr tablet Take 60 mg by mouth daily. Do not crush or chew. Historical Provider, losartan (Cozaar) 50 MG tablet Take 50 mg by mouth 2 times daily. Historical ProviderMD Multiple Vitamin (multivitamin) capsule Take 1 capsule by mouth daily. Historical ProviderMD mupirocin (Bactroban) 2 % ointment Apply liberal amount per nostril the night before surgery and then again the morning of surgery 12/24/22 GORDO Felix CNP pantoprazole (ProtoNix) 40 MG EC tablet Take 40 mg by mouth every morning (before breakfast). Do not crush, chew, or split. Historical ProviderMD polyethylene glycol, PEG, 3350 (Miralax) 17 g packet Take 17 g by mouth daily. Historical ProviderMD SITagliptin (Januvia) 100 MG tablet Take 100 mg by mouth daily. Historical ProviderMD traMADol (Ultram) 50 MG tablet Take 50 [...] Larkin CNP Date: 12/29/2022 at 2:58 PM [employer] Phone: 1(159) 386-259208-28-2023 History and physical note* GORDO Larkin CNP - 12/29/2022 2:00 PM EDT Images from the original note were not included. Comprehensive Pre Surgical History and Physical ? Name: Lacy Alvarado : 1950 (Age-72 y.o.) Date of Service: Pt seen/examined on 12/29/2022 Procedure Information Date/Time: 01/01/23 0730 Procedures: CABG AND SIS (Chest) Echocardiography transesophageal real-time Location: [address] Operating Room Surgeons: Azam Rose MD Chief [...] cardiopulmonary testing. 1) Atherosclerotic heart disease of [place] coronary artery without angina pectoris [I25.10] Pre-op diagnosis: Atherosclerotic heart disease of [place] coronary artery without angina pectoris [I25.10] - [...] who we are asked to see/evaluate by [place] [address] for pre-operative evaluation prior to. CABG AND SIS (Chest) [11661 CPT(R)] Echocardiography transesophageal real-time [60302 CPT(R)] Anesthesia type: General Reason for Visit: [...] Milian. Patient was admitted on 12/18/22 to [facility] with CP. Per notes, patient has a [...] office note 12/23/2022 ? Denies history of MD, TIA, CVA Past Medical History: Past Medical History: No date: CHF (congestive heart failure) ([facility]/HCC) ([facility]) No date: Diabetes mellitus ([facility]) No date: GERD (gastroesophageal reflux disease) No date: Hyperlipidemia No date: Hypertension No date: RA (rheumatoid arthritis) ([facility]) No date: Seizure ([facility]) Comment: last seizure 5 months ago nathaniel murray 08/24 No date: Seizures ([facility]) No date: Sleep apnea Past Surgical History: [...] then again the morning of surgery 12/24/22 Kassy Tabares APRN - PROFESSOR OF SPANISH pantoprazole (ProtoNix) 40 MG EC tablet Take [...] 12/29/2022 at 2:58 PM documented in this encounterSKettering Health [id number] Telephone encounter Note* Telephone Encounter - GORDO Felix CNP - 12/24/2022 11:44 AM EDT Surg proc orders placed, medications e-scribed - talked to patient, answered all questions. [facility] [id number] Miscellaneous Notes* Telephone Encounter - GORDO Felix [...] mouth rinse [] Other: documented in this [facility]08-22-2023 NotePrep for Procedure Order Request: 12/23/22 Surgeon: Dr. Rose Surgery/Procedure: CABG & SIS Plan Admit: Yes PAT Appointment: 12/26/22 at 1:00 PM Date if yes: Date of Surgery/Procedure: 01/01/23 at 7:30 AM Medication needed held: [] None [] Other: Medication needed prescribed: [] None [x] Nasal ointment and mouth rinse [] Other: 08-22-2023 Telephone encounter Note* Telephone Encounter - Katarzyna [...] Nasal ointment and mouth rinse [] Other: [facility] CenterEgahhh20-04-3745 History of Present illness Narrative* Azam Rose MD - 12/23/2022 10:30 AM EDT Images from the original note were not included. [facility] CARDIOVASCULAR & THORACIC SURGERY [address] [facility] [address] Dept: [phone] Dept Loc: [phone] Visit type: New Reason for Visit: Multivessel [...] Milian. Patient was admitted on 12/18/22 to [facility] with CP. Per notes, patient has a [...] This note may have been dictated using [employer] Medical Practice Edition 2.6 and/or [employer] Voice Recognition Feature. The document was proofread, however unrecognized voice recognition c s s representative errors may be present. documented in this [facility]08-22-2023 History of Present illness Narrative* Azam Rose MD - 12/23/2022 10:30 AM EDT Images from the original note were not included. [facility] CARDIOVASCULAR & THORACIC SURGERY [address] [facility] [address] Dept: [phone] Dept Loc: [phone] Visit type: New Reason for Visit: Multivessel [...] Milian. Patient was admitted on 12/18/22 to [facility] with CP. Per notes, patient has a [...] This note may have been dictated using [employer] Practice Edition 2.6 and/or [employer] Voice Recognition Feature. The document was proofread, however unrecognized voice recognition c s s representative errors may be present. documented in this [facility]08-18-2023 Discharge summary Author [facility] December 19, 2022 3:41pm Note Date/Time December 19, 2022 3: 38pm [facility] Medical Records Department [address] [place] [id number] Instructions for Home/Discharge Instructions 12/19/22 1537 MR#: [id number] Acct: [id number] Name: LACY ALVARADO Ede Rep #:[id number] : 1950 72 From: Edwin Mo hugh [...] Follow-up with the cardiothoracic surgery team at [place] as discussed. Discharge Orders/Prescriptions Prescriptions: New isosorbide [...] Prolia 60 mg/mL syringe 60 mg subcut [id number] Qty: 1 2RF Discontinued isosorbide mononitrate 30 [...] MD; Dr. Bhanu Milian MD ~ Signed [facility] Work Phone: 1(192) 634-898008-18-2023 Procedure [facility] 12-19-2022 Consult note Author Bhanu Milian [facility] December 19, 2022 4:13pm Note Date/Time December 19, 2022 8: 32am [facility] Medical Records Department [address] [place] [address] Consultation - Cardiology 12/19/22 0830 MR#: [id number] Acct: [id number] Name: LACY ALVARADO Rep #:[id number] 9 : 1950 72 From: Karen LÓPEZ PA PCP: Dr. Mayda Garcia MD Status:A DM DELFIN Location: [place] [id number] <Statement entered by Bhanu Milian MD - [...] She was referred to Dr. Rose at [facility]. She will follow-up with them on an [...] is a 72 F who [facility] with Chest pain, she [...] 60%, circumflex 50% stenosis, RCA 60% stenosis. [facility] Medical History Abdominal pain Acute back pain Anemia Arthritis Atherosclerotic heart disease of [place] coronary artery without angina pectoris Cardiology follow-up [...] mg/mL subcutaneous syringe (Prolia) 60 mg subcut [id number] #1 mL 12/11/22 [Rx Last Taken Unknown] [...] branch 12/19/22 1425 <Electronically signed by Karen LÓPEZ PA> Cosigner Signature (if applicable): 12/19/22 1613 <Electronically signed by Bhanu Milian MD> CC: Dr. Mayda Garcia MD; Dr. Bhanu Milian MD~ Signed [facility] Work Phone: 1(908) 213-165408-17-2023 History and physical note Author Edwin gerber [facility] December 18, 2022 4:38pm Note Date/Time December 18, 2022 4: 36pm [facility] Medical Records Department [address] [place] [address] H&P Exam - Hospitalist 12/18/22 1627 MR#: [id number] Acct: [id number] Name: LACY ALVARADO Rep #:[id number] 2 : 1950 72 From: Edwin martin DO PCP: Dr. Mayda Garcia MD Status:A DM DELFIN Location: [place] [address] HPI - General General Date of Admission: 12/18/22 Date of Service: 12/18/22 Chief Complaint: Chest pain HPI Narrative Lacy Alvarado is a 72-year-old female with history significant for CAD s/p stenting on Plavix (follows w/ Dr. Johnson), hypertension, seizures, que-vewfyyx-eimcuhkwe type 2 diabetes and GERD who presented to the [facility] ED on 12/18 with chest pain. Patient [...] to view this. Chest x-ray was nonacute. [facility] Medical History Abdominal pain Acute back pain Anemia Arthritis Atherosclerotic heart disease of [place] coronary artery without angina pectoris Cardiology follow-up [...] mg/mL subcutaneous syringe (Prolia) 60 mg subcut [id number] #1 mL 12/11/22 [Rx Last Taken Unknown] [...] 43.9 L, Lymph % (Auto) 45.0 H, [place] % (Auto) 8.1, Eos % (Auto) 2.4, [...] Plavix (follows w/ Dr. Johnson), hypertension, seizures, umu-onivszv-rghiqlkkz type 2 diabetes and GERD who presented to the [facility] ED on 12/18 with chest pain. 1. [...] isosorbide mononitrate and losartan at this time. Jessichalino plan to restart after left heart cath tomorrow as able. 3. Seizure disorder ? Continue home divalproex. 4. Wux-yqloapo-ecephohjn type 2 diabetes ? Home medication of Sitagliptin. Will monitor blood sugars here, can add on sliding scale insulin as needed. DVT prophylaxis: Heparin drip CODE STATUS: Full code, verified Expected disposition: Home, tomorrow Total clinical time spent by myself addressing the patient's medical issues, reviewing all the data, and collaborating with patient's care team: 55 minutes. Charges/Coding Visit Charges Inpatient E&M: 16377 Init Hosp L2 12/18/22 1638 <Electronically signed by Edwin Kaplan DO> Cosigner Signature (if applicable): CC: Dr. Edwin Kaplan DO; Dr. Mayda Garcia MD~ Signed [facility] Work Phone: 1(911) 559-218708-17-2023 Discharge summary Author Jossue Boyd [facility] December 18, 2022 8:57am Note Date/Time December 18, 2022 5: 38am [facility] Medical Records Department [address] [place] [address] Emergency Department Summary 12/18/22 MR#: [id number] Acct: [id number] Name: LACY ALVARADO Rep #:[id number] 2 : 1950 72 From: Turner Armendariz [...] surgery. No history of PE or DVT. [facility] Medical History (Updated 12/18/22 @ 06:[address] Turner Armednariz, DO) Abdominal pain Acute back pain Anemia Arthritis Atherosclerotic heart disease of [place] coronary artery without angina pectoris Cardiology follow-up [...] mg/mL subcutaneous syringe (Prolia) 60 mg subcut [id number] #1 mL 12/11/22 [Rx Last Taken Unknown] [...] coronary artery disease. Patient placed on a potline monitor. EKG obtained on arrival shows sinus rhythm [...] 43.9 L Lymph % (Auto) 45.0 H [place] % (Auto) 8.1 Eos % (Auto) 2.4 [...] Prolia 60 mg/mL syringe 60 mg subcut [id number] Qty: 1 2RF Primary Care Provider: Mayda Garcia Referrals: Mayda Garcia MD [Primary Care Provider] - What to do if you have Problems For any increased pain, shortness of breath, bleeding, nausea or vomiting, chestpain, or any unexpected problems, contact your Primary Care Provider. Call [facility] ([phone]) or report to the closest Emergency Room. [...] cc: Dr. Mayda Garcia MD ~* Signed [facility] Work Phone: 1(323) 134-299608-17-2023 Discharge summary Author Jossue Boyd [facility] December 18, 2022 8:57am Note Date/Time December 18, 2022 5: 38am [facility] Medical Records Department [address] [place] [address] Emergency Department Summary 12/18/22 MR#: [id number] Acct: [id number] Name: LACY ALVARADO Rep #:[id number] 2 : 1950 72 From: Turner Armendariz [...] surgery. No history of PE or DVT. [facility] Medical History (Updated 12/18/22 @ 06:[address] Turner Armendariz, DO) Abdominal pain Acute back pain Anemia Arthritis Atherosclerotic heart disease of [place] coronary artery without angina pectoris Cardiology follow-up [...] mg/mL subcutaneous syringe (Prolia) 60 mg subcut [id number] #1 mL 12/11/22 [Rx Last Taken Unknown] [...] coronary artery disease. Patient placed on a potline monitor. EKG obtained on arrival shows sinus rhythm [...] 43.9 L Lymph % (Auto) 45.0 H [place] % (Auto) 8.1 Eos % (Auto) 2.4 Baso % (Auto) 0.4 Absolute Neuts (auto) 2.2 Absolute Lymphs (auto) 2.22 Nucleated RBC % 0 D-Dimer Quant (PE/DVT) 0.31 Radiography Diagnostic Testing: Clinical Impression(s) from Imaging Studies Chest X-Ray 12/18/22 05:36 IMPRESSION: No radiographic evidence of acute cardiopulmonary disease. Electronically Signed: Flor Flynn MD at 6:39 EDT Reading Location ID and State: [facility] / [place] Tel , Service support , 1 view [...] Prolia 60 mg/mL syringe 60 mg subcut [id number] Qty: 1 2RF Primary Care Provider: Mayda Garcia Referrals: Mayda Garcia MD [Primary Care Provider] - What to do if you have Problems For any increased pain, shortness of breath, bleeding, nausea or vomiting, chestpain, or any unexpected problems, contact your Primary Care Provider. Call [facility] ([phone]) or report to the closest Emergency Room. [...] cc: Dr. Mayda Garcia MD ~* Signed [facility] Work Phone: 1([phone]) 142-342704-13-[address] Freeman [facility] August 14, 2022 1:07am Note Date/Time August 13, 2022 10: 30pm [facility] Medical Records Department [address] [place] [address] Emergency Department Summary 08/13/22 MR#: [id number] Acct: [id number] Name: LACY ALVARADO Rep #:[id number] 9 : 1950 71 From: Tin Freeman [...] in the past. 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 She complains of headache, and states that she does not usually have a headacheafter seizure. No fever, chills. PFSH PFS Medical History Abdominal pain Acute back pain Anemia Arthritis Atherosclerotic heart disease of [place] coronary artery without angina pectoris Cardiology follow-up [...] mg/mL subcutaneous syringe (Prolia) 60 mg subcut [id number] #1 mL 05/20/22 [Rx Last Taken Unknown] [...] 45.6 L Lymph % (Auto) 44.1 H [place] % (Auto) 7.4 Eos % (Auto) 2.1 [...] Prolia 60 mg/mL syringe 60 mg subcut [id number] Qty: 1 0RF atorvastatin 80 mg tablet [...] your Primary Care Provider. Call [facility] ([phone]) or report to the closest Emergency Room. Call 911 if necessary. 08/14/22 010 <Electronically signed by Tin Freeman DO> Cosigner Signature (if applicable): CC: Dr. Mayda Garcia MD ~ Signed [facility] Work Phone: 1([phone]) 213-172302-04-[address] Patel [facility] June 07, 2022 6:15pm Note Date/Time June 07, 2022 6 :12pm [facility] Medical Records Department [address] [place] [address] Emergency Department Summary 06/07/22 MR#: [id number] Acct: [id number] Name: LACY ALVARADO Rep #:[id number] 2 : 1950 71 From: Ezekiel Patel [...] Tetanus Immunization: 5-10 years Recent Illness/Hospitalization: Yes PFSH [facility] Medical History Abdominal pain Acute back pain Anemia Arthritis Atherosclerotic heart disease of [place] coronary artery without angina pectoris Cardiology follow-up [...] mg/mL subcutaneous syringe (Prolia) 60 mg subcut [id number] #1 mL 05/20/22 [Rx Last Taken Unknown] [...] II-XII intact bilaterally and moves all extremities [place] Coma Scale: document GCS findings Spontaneous Oriented [...] Triage Chief Complaint: Chest Other ED Provider: Ezekiel Patel Dx/Rx/DC Orders Clinical Impression: Contusion of back [...] Prolia 60 mg/mL syringe 60 mg subcut [id number] Qty: 1 0RF Primary Care Provider: Mayda [...] your Primary Care Provider. Call [facility] ([phone]) or report to the closest Emergency Room. Call 911 if necessary. 06/07/221814 <Electronically signed by Ezekiel Patel MD> Cosigner Signature (if applicable): CC: Dr. Mayda Garcia MD ~ Signed [facility] Work Phone: 1(679) 227-718002-04-2023 Hospital Discharge instructions Additional Instructions Apply ice to your left chest wall and [facility]: Discharge summary Author Edwin gerber [facility] December 19, 2022 4:23pm Note Date/Time December 19, 2022 3: 41pm [facility] Medical Records Department [address] [place] [address] Discharge Summary 12/19/22 1541 MR#: [id number] Acct: [id number] Name: LACY ALVARADO Rep #:[id number] 6 : 1950 72 From: Edwin Mo hugh SINGH PCP: Dr. Mayda Garcia MD Status:A DM DELFIN Location: [place] [address] Providers Date of Admission: 12/18/22 Date of [...] lancets 33 gauge (BD Ultra Fine Lancets) 11/30/22 atorvastatin 80 mg tablet 80 mg PO [...] mg/mL subcutaneous syringe (Prolia) 60 mg subcut [id number] #1 mL 12/11/22 pantoprazole 40 mg tablet,delayed [...] Plavix (follows w/ Dr. Johnson), hypertension, seizures, lqd-tgtlcmm-ayuuxtdoc type 2 diabetes and GERD who presented to the [facility] ED on 12/18 with chest pain. She [...] for an outpatient appointment with them in [place] early next week. She tolerated the catheterization well and was stable afterwards. A transthoracic echocardiogram was done post catheterization, read was pending on discharge. She was discharged home in stable condition. Discharge diagnoses: Chest pain, improved CAD s/p stenting Hypertension Seizures Ldj-tgpgwmv-ovmwerqvl type 2 diabetes GERD PCP follow-up: Patient will be following up with cardiothoracic surgery in [facility] discuss options for intervention on her [...] Follow-up with the cardiothoracic surgery team at [place] as discussed. Discharge Orders/Prescriptions Prescriptions: New isosorbide [...] Prolia 60 mg/mL syringe 60 mg subcut [id number] Qty: 1 2RF Discontinued isosorbide mononitrate 30 [...] Self Care Charges/Coding Visit Charges Inpatient E&M: 53027 Disch Hosp >30min 12/19/22 1623 <Electronically signed by Edwin Kaplan DO> Cosigner Signature (if applicable): CC: Dr. Edwin Kaplan DO; Dr. 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 Epilepsy, unspecified, not i ntractable, without status epilepticus chronic Occipital neuralgia chronic BMI 32.0-32.9,adult acute LINA (obstructive sleep apnea) chronic Health care maintenance acut e Right shoulder pain acute Essential (primary) hypertension chronic Seizures chronic Type 2 diabetes mellitus chr onic [facility] Work Phone: Evaluation note* Diagnosis Onset Date Resolution Status Cerebrovascular 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 Epilepsy, unspecified, not i ntractable, without status epilepticus chronic Occipital neuralgia chronic BMI 32.0-32.9,adult acute LINA (obstructive sleep apnea) chronic Health care maintenance acut e Right shoulder pain acute Essential (primary) hypertension chronic Seizures chronic Type 2 diabetes mellitus chr onic Cough acute Chest pain acute Intractable pain acute Neck pain acute [facility] Work Phone: Evaluation note* Diagnosis Onset Date Resolution Status Cerebrovascular 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 Epilepsy, unspecified, not i ntractable, without [...] stent placement March 222017 chronic Hyperlipidemia chronic [facility] Work Phone: Evaluation note* Diagnosis Onset Date Resolution Status BMI [...] stent placement March 222017 chronic Hyperlipidemia chronic [facility] Work Phone: Evaluation note* Diagnosis Onset Date Resolution Status Cough acute Chest pain acute Intractable pain acute Neck pain acute Cervical radiculopathy acute Left shoulder pain acute Neck pain acute Left upper extremity numbness acute Essential (primary) hypertension chronic History of coronary artery stent placement March 222017 chronic Hyperlipidemia chronic Obesity acute LINA (obstructive sleep apnea) chronic [facility] Work Phone: Evaluation note* Diagnosis Onset Date Resolution Status Obesity acute LINA (obstructive sleep apnea) chronic Seizures chronic Exposure to COVID-19 virus a cute [facility] Work Phone: Evaluation note* Diagnosis Onset Date Resolution Status Exposure to COVID-19 virus a cute Pain in left upper arm acute Essential (primary) hypertension chronic Seizures chronic Type 2 diabetes mellitus chr onic Osteoporosis acute [facility] Work Phone: Evaluation note* Diagnosis Onset Date [...] chronic Type 2 diabetes mellitus chr onic [facility] Work Phone: Evaluation note* Diagnosis Onset Date Resolution Status Memory changes acute Epilepsy, unspecified, not i ntractable, without status epilepticus chronic Memory loss acute Epilepsy, unspecified, not i ntractable, without status epilepticus chronic Right hip pain acute Essential (primary) hypertension chronic Type 2 diabetes mellitus chr onic Osteoarthritis of right knee noneactive [facility] Work Phone: Evaluation note* Diagnosis Onset Date [...] disease acute History of hypertension acut e [facility] Work Phone: Evaluation note* Diagnosis Onset Date [...] stent placement March 222017 chronic Hyperlipidemia chronic [facility] Work Phone: Evaluation note* Diagnosis Onset Date [...] stent placement March 222017 chronic Hyperlipidemia chronic [facility] Work Phone: Evaluation note* Diagnosis Coronary artery disease due to calcified coronary lesion- Primary Atherosclerotic heart disease of [place] coronary artery without angina pectoris documented in this encounter [facility] note* Diagnosis CAD in [place] artery- Primary Preoperative clearance Unspecified pre-operative examination Atherosclerotic heart disease of [place] coronary artery without angina pectoris documented in this encounter [facility] note* Diagnosis Preoperative clearance Unspecified pre-operative examination Atherosclerotic heart disease of [place] coronary artery without angina pectoris documented in this encounter [facility]Evaluation note* Diagnosis Coronary artery disease due to calcified coronary lesion- Primary documented in this encounter [facility]Evaluation note* Diagnosis CAD in [place] artery- Primary CAD in [place] artery Coronary artery disease involving coronary bypass graft, unspecified whether angina present, unspecified whether [place] or transplanted heart S/P CABG (coronary artery bypass graft) Postsurgical aortocoronary bypass status [facility]* Diagnosis Onset Date Resolution Status Memory [...] arthritis acute Stroke acute Hyperlipidemia chronic Hypertension [facility] Work Phone: Evaluation note* Diagnosis S/P CABG (coronary artery bypass graft)- Primary Postsurgical aortocoronary bypass status documented in this encounter [facility]Evaluation note* Diagnosis Onset Date Resolution Status Left [...] Tachycardia acute Essential (primary) hypertension chronic Hyperlipidemia [facility] Work Phone: Evaluation note* Diagnosis Onset Date [...] artery bypass graft chronic Hyperlipidemia chronic Hypertension [facility] Work Phone: Evaluation note* Diagnosis Onset Date [...] Fatigue acute Osteoarthritis of right knee noneactive [facility] Work Phone: Evaluation note* Diagnosis Onset Date [...] graft chronic Obesity chronic Obstructive sleep apnea 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 Chest wall tenderness chroni c Coronary artery 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 Essential (primary) hypertension chronic GERD (gastroesophageal reflux disease) chronic Osteoporosis chronic Rheumatoid arthritis chronic Type 2 diabetes mellitus chr onic [facility] Work Phone: Evaluation note* Diagnosis Onset Date Resolution Status Fatigue acute Fatigue acute Osteoarthritis of right knee noneactive History of coronary artery bypass graft chronic Obesity chronic Obstructive sleep apnea 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 Chest wall tenderness chroni c Coronary artery 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 Essential (primary) hypertension chronic GERD (gastroesophageal reflux disease) chronic Osteoporosis chronic Rheumatoid arthritis chronic Type 2 diabetes mellitus chr onic Fatigue acute Abdominal pain chronic [facility] Work Phone: Evaluation note* Diagnosis Onset Date Resolution Status Fatigue acute Fatigue acute Osteoarthritis of right knee noneactive History of coronary artery bypass graft chronic Obesity chronic Obstructive sleep apnea 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 Chest wall tenderness chroni c Coronary artery 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 Essential (primary) hypertension chronic GERD (gastroesophageal reflux disease) chronic Osteoporosis chronic Rheumatoid arthritis chronic Type 2 diabetes mellitus chr onic Fatigue acute Abdominal pain chronic Abdominal pain chronic [facility] Work Phone: Evaluation note* Diagnosis Onset Date Resolution Status Fatigue acute Osteoarthritis of right knee noneactive History of coronary artery bypass graft chronic Obesity chronic Obstructive sleep apnea 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 Chest wall tenderness chroni c Coronary artery 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 Essential (primary) hypertension chronic GERD (gastroesophageal reflux disease) chronic Osteoporosis chronic Rheumatoid arthritis chronic Type 2 diabetes mellitus chr onic Fatigue acute Abdominal pain chronic Abdominal pain chronic [facility] Work Phone: Evaluation note* Diagnosis Onset Date Resolution Status Fatigue acute Osteoarthritis of right knee noneactive History of coronary artery bypass graft chronic Obesity chronic Obstructive sleep apnea 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 Chest wall tenderness chroni c Coronary artery 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 Essential (primary) hypertension chronic GERD (gastroesophageal reflux disease) chronic Osteoporosis chronic Rheumatoid arthritis chronic Type 2 diabetes mellitus chr onic Fatigue acute Abdominal pain chronic Abdominal pain chronic Osteoporosis chronic [facility] Work Phone: Hospital Discharge instructions Additional Instructions Discharge home 01/26/2023, pending appeal, [facility] PT/OT/SN, Front wheeled walker, bedside commode.[facility] Work Phone: Hospital Discharge instructions Additional Instructions EKG normal cardiac workup negative. Chest CT discussed with radiologist no concern for fracture. Follow-up with your doctor. Take medications as prescribed.[facility] Work Phone: Hospital Discharge instructions Additional Instructions Ice to your chest wall to decrease pain and bruising. 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 Pain. Follow-up with your doctor if not improving.[facility] Work Phone: Reason for referral (narrative)No reason for referral information [facility] Work Phone: Summary Purpose Family History [...] No October 25, 2021 2:03pm Power of Precision Lens Grinder Apprentice No October 25 2 2:03pm Advance Directive Response Recorded Date/ Time Name of Medical Power of Precision Lens Grinder Apprentice bhupinder barakat November 28, 2021 7:50pm Advance Directives No September 26 1 1:14pm Living Will Yes November 28, 2021 7:50pm Power of Precision Lens Grinder Apprentice Yes November 28 2 7:50pm Advance Directive Response Recorded Date/ Time Name of Medical Power of Precision Lens Grinder Apprentice bhupinder barakat November 28, 2021 7:50pm Advance Directives No September 26 1:14pm Living Will No December 17 3:55am Power of Precision Lens Grinder Apprentice No December 17 3:55am Advance Directive Response Recorded Date/ Time Name of Medical Power of Precision Lens Grinder Apprentice bhupinder barakat November 28, 2021 7:50pm Name of Medical Power of Precision Lens Grinder Apprentice bhupinder barakat January 02, 2022 12:50pm Advance Directives No September 26 1:14pm Living Will Yes January 02 12:50pm Power of Precision Lens Grinder Apprentice Yes January 02, 2022 12:50pm Advance Directive Response Recorded Date/ Time Name of Medical Power of Precision Lens Grinder Apprentice bhupinder barakat November 28, 2021 6:50pm Name of Medical Power of Precision Lens Grinder Apprentice bhupinder barakat January 02, 2022 11:50am Advance Directives No September 26 12:14pm Living Will No March 14 5:43pm Power of Precision Lens Grinder Apprentice No March 14, 2022 5:43pm Advance Directive Response Recorded Date/ Time Name of Medical Power of Precision Lens Grinder Apprentice bhupinder barakat January 02, 2022 11:50am Advance Directives No September 26 12:14pm Living Will No March 29 10:41am Power of Precision Lens Grinder Apprentice No March 29, 2022 10:41am Advance Directive Response Recorded Date/ Time Advance Directives No September 26 12:14pm Living Will No March 29 10:41am Power of Precision Lens Grinder Apprentice No March 29, 2022 10:41am Advance Directive Response Recorded Date/ Time Name of Medical Power of Precision Lens Grinder Apprentice BHUPINDER MARTÍNEZ June 06, 2022 10:51am Advance Directives No September 26 12:14pm Living Will No June 07 6:10pm Power of Precision Lens Grinder Apprentice No June 07, 2022 6:10pm Advance Directive Response Recorded Date/ Time Name of Medical Power of Precision Lens Grinder Apprentice BHUPINDER MARTÍNEZ June 06, 2022 11:51am Name of Medical Power of Precision Lens Grinder Apprentice Duke Barakat August 13, 2022 10:00pm Advance Directives No September 26 1:14pm Living Will Yes August 13, 2022 10:00pm Power of Precision Lens Grinder Apprentice Yes August 13 10:00pm Advance Directive Response Recorded Date/ Time Name of Medical Power of Precision Lens Grinder Apprentice Duke Barakat August 13, 2022 10:00pm Advance Directives No September 26 1:14pm Living Will Yes August 13, 2022 10:00pm Power of Precision Lens Grinder Apprentice Yes August 13 10:00pm Advance Directive Response Recorded Date/ Time Name of Medical Power of Precision Lens Grinder Apprentice Duke Barakat August 13, 2022 10:00pm Advance Directives No December 31, 2020 12:33pm Living Will Yes August 13, 2022 10:00pm Power of Precision Lens Grinder Apprentice Yes August 13 10:00pm Advance Directive Response Recorded Date/ Time Name of Medical Power of Precision Lens Grinder Apprentice BHUPINDER SENIOR December 18, 2022 5:26am Advance Directives No December 31, 2020 12:33pm Living Will Yes December 18 5:26am Power of Precision Lens Grinder Apprentice Yes December 18, 023 5:26am Advance Directive Response Recorded Date/ Time Name of Medical Power of Precision Lens Grinder Apprentice BHUPINDER SENIOR December 18, 2022 5:26am Advance Directives No December 31, 2020 12:33pm Living Will Yes December 18 10:41am Power of Precision Lens Grinder Apprentice No December 18, 2 023 10:41am Latest Code Status on File Code Status Date Activated Date Inactivated Comments Full Code 01/01/2023 5:45 AM Latest Code Status on File Code Status Date Activated Date Inactivated Comments Full Code 01/01/2023 5:45 AM 01/11/2023 4:53 PM Healthcare Agents on File Name Relationship Healthcare Agent Relationshi p Communication Bhupinder Gomez [facility] Care Agent Advance Directive Response Recorded Date/ Time Name of Medical Power of Precision Lens Grinder Apprentice BHUPINDER SENIOR December 18, 2022 5:26am Name of Medical Power of Precision Lens Grinder Apprentice Bhupinder Starkeyyvette iece January 13, 2023 2:24pm Advance Directives No December 31, 2020 12:33pm Living Will Yes January 13, 2023 2:24pm Power of Precision Lens Grinder Apprentice Yes January 2:24pm Documents on File Type Date Recorded Patient Mate Relief Expl anation Advance Directives and Livin g Will 01/12/2023 1:40 PM Latest Code Status on File Code Status Date Activated Date Inactivated Comments Full Code 01/01/2023 5:45 AM 01/11/2023 4:53 PM Healthcare Agents on File Name Relationship Healthcare Agent [facility] Communication Bhupinder Asecncio Health Care Agent Advance Directive Response Recorded Date/ Time Advance Directives No February 02, 2023 11:35am Living Will Yes February 02 11:35am Power of Precision Lens Grinder Apprentice Yes February 02 11:35am Name of Medical Power of Precision Lens Grinder Apprentice BHUPINDER SENIOR December 18, 2022 5:26am Name of Medical Power of Precision Lens Grinder Apprentice Bhupinder Roblesyvette rivera iece January 13, 2023 2:24pm Advance Directive Response Recorded Date/ Time Advance Directives No February 02, 2023 10:35am Living Will Yes February 02 10:35am Power of Precision Lens Grinder Apprentice Yes February 02 10:35am Name of Medical Power of Precision Lens Grinder Apprentice BHUPINDER SENIOR December 18, 2022 4:26am Name of Medical Power of Precision Lens Grinder Apprentice Bhupinder Roblesjazlynbutch n iece January 13, 2023 1:24pm Advance Directive Response Recorded Date/ Time Advance Directives No February 02, 2023 10:35am Living Will Yes February 02 10:35am Power of Precision Lens Grinder Apprentice Yes February 02 10:35am Advance Directive Response Recorded Date/ Time Advance Directives on File No 2023 9:39am Advance Directives No February 02, 2023 10:35am Living Will Yes June 01 9:57am Power of Precision Lens Grinder Apprentice Yes June 01, 2023 9:39am Advance Directive Response Recorded Date/ Time Advance Directives on File No 2023 10:39am Advance Directives No February 02, 2023 11:35am Living Will Yes June 01 10:57am Power of Precision Lens Grinder Apprentice Yes June 01, 2023 10:39am Advance Directive Response Recorded Date/ Time Living Will Yes February 02 11:35am Power of Precision Lens Grinder Apprentice Yes February 02 11:35am Living Will Yes November 15, 2023 3:30pm Power of Precision Lens Grinder Apprentice No November 14 3:30pm Living Will No July 14, 2024 5:08pm Power of Precision Lens Grinder Apprentice No July 14 5:08pm Advance Directives No February 02, 2023 11:35am Advance Directive Response Recorded Date/ Time Living Will Yes February 02 11:35am Power of Precision Lens Grinder Apprentice Yes February 02 11:35am Living Will Yes November 15, 2023 3:30pm Power of Precision Lens Grinder Apprentice No November 14 3:30pm Living Will No July 14, 2024 5:08pm Power of Precision Lens Grinder Apprentice No July 14 5:08pm Living Will No July 15, 2024 1:25pm Power of Precision Lens Grinder Apprentice No July 15 1:25pm Advance Directives No February 02, 2023 11:35am Advance Directive Response Recorded Date/ Time Living Will Yes November 15, 2023 3:30pm Do you have a Healthcare Power of Precision Lens Grinder Apprentice? No November 15, 2023 3:30pm Living Will No July 14, 2024 5:08pm Do you have a Healthcare Power of Precision Lens Grinder Apprentice? No July 14, 2024 5:08pm Living Will No July 15, 2024 1:25pm Do you have a Healthcare Power of Precision Lens Grinder Apprentice? No July 15, 2024 1:25pm Do you have a Healthcare Power of Precision Lens Grinder Apprentice? No September 16, 2024 3:51pm Advance Directives No February 02, 2023 11:35am Advance Directive Response Recorded Date/ Time Living Will No July 14, 2024 5:08pm Do you have a Healthcare Power of Precision Lens Grinder Apprentice? No July 14, 2024 5:08pm Living Will No July 15, 2024 1:25pm Do you have a Healthcare Power of Precision Lens Grinder Apprentice? No July 15, 2024 1:25pm Do you have a Healthcare Power of Precision Lens Grinder Apprentice? No September 16, 2024 3:51pm Advance Directives [...] ARM RT ARM PAIN SCREENING general illness [facility] FU CHEST PAIN CHEST PAIN CHEST [...] ARM RT ARM PAIN SCREENING general illness [facility] ER FU CHEST PAIN CHEST PAIN CHEST PAIN CHEST PAIN [facility] FU 1 Y FU Reason for Visit [...] ARM RT ARM PAIN SCREENING general illness [facility] ER FU CHEST PAIN CHEST PAIN CHEST PAIN CHEST PAIN CHEST PAIN [facility] FU 1 Y FU CERVICAL RADICULOPATHY. RX [...] ARM RT ARM PAIN SCREENING general illness [facility] ER FU CHEST PAIN CHEST PAIN CHEST PAIN CHEST PAIN CHEST PAIN [facility] FU 1 Y FU CERVICAL RADICULOPATHY. RX HERE 4 M FU SEIZURE Reason for Visit Cough Chest pain Intractable pain Neck pain Cervical radiculopathy Left shoulder pain Neck pain Left upper extremity numbness Essential (primary) hypertension History of coronary artery stent placement Hyperlipidemia Obesity LINA (obstructive sleep apnea) Chief Complaint RT ARM PAIN SCREENING general illness [facility] ER FU CHEST PAIN CHEST PAIN CHEST PAIN CHEST PAIN CHEST PAIN [facility] FU 1 Y FU CERVICAL RADICULOPATHY. RX HERE 4 M FU SEIZURE FALL Reason for Visit Cough Chest pain Intractable pain Neck pain Cervical radiculopathy Left shoulder pain Neck pain Left upper extremity numbness Essential (primary) hypertension History of coronary artery stent placement Hyperlipidemia Obesity LINA (obstructive sleep apnea) Chief Complaint CERVICAL RADICULOPAT HY. RX HERE 4 M FU SEIZURE FALL [facility] ER FU Wants Covid Test LABSPEC Reason for Visit Obesity LINA (obstructive sleep apnea) Seizures Exposure to COVID-19 virus Chief Complaint CERVICAL RADICULOPAT HY. RX HERE 4 M FU SEIZURE FALL [facility] ER FU Wants Covid Test LABSPEC seizure [...] 8:51a m Atherosclerotic heart diseas e of [place] coronary artery without angina pectoris September 19, [...] 8:51a m Atherosclerotic heart diseas e of [place] coronary artery without angina pectoris September 19, [...] 8:51a m Atherosclerotic heart diseas e of [place] coronary artery without angina pectoris September 19, [...] 12:32pm Fatigue October 03, 2024 11:04 am Chief Complaint Admit Date B12 inject July 05, 2024 10:4 4am CP July 14, 2024 4:1 7pm PAIN July 15, 2024 12: 11pm 3 M FU/Prolia August 10, 2024 10:3 7am CHEST PAIN September 16, 2024 3:07p m Chest soreness 2 years post CABG September 8:51am HOSP FU September 21, 2024 10:36 am 8 m fu September 28, 2024 12:32 pm B12 October 03, 2024 11:04 am sleep apnea October 20, 2024 7:51 pm Chief Complaint Admit Date CP July 14, 2024 4:1 7pm PAIN July 15, 2024 12: 11pm 3 M FU/Prolia August 10, 2024 10:3 7am CHEST PAIN September 16, 2024 3:07p m Chest soreness 2 years post CABG September 8:51am HOSP FU September 21, 2024 10:36 am 8 m fu September 28, 2024 12:32 pm B12 October 03, 2024 11:04 am sleep apnea October 20, 2024 7:51 pm 6 M FU November 07, 2024 11:01 am Reason for Visit Admit Date Essential (primary) hypertension August 102024 10:37am Osteoporosis August 10, 2024 10:3 7am Rheumatoid arthritis August 10, 2024 10: 37am Type 2 diabetes mellitus August 10, 2024 10:37am Anemia September 19, 2024 8:51a m Atherosclerotic heart diseas e of [place] coronary artery without angina pectoris September 19, [...] 12:32pm Fatigue October 03, 2024 11:04 am Epilepsy, unspecified, not i ntractable, without status epilepticus November 07, 2024 11:01am Reason for Referral Specialty Diagnoses / Procedures Referred By Nubia t Referred To Contact Diagnoses S/P CABG (coronary artery bypass graft) Kassy Tabares, [employer] 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 - 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 OF SPANISH [address] [address] Referral ID Status Reason Start Date Expiration Date Visits Re quested Visits Authorized [id number] Closed 1 1 Additional Source Comments INFORMATION SOURCE (unrecogn ized section and content) DATE CREATED AUTHOR 10/27/2017 [facility] DATE CREATED AUTHOR AUTHOR'S ORGANIZ ATION 10/27/2017 [facility] DATE CREATED AUTHOR AUTHOR'S ORGANIZ ATION 06/21/2018 [facility] DATE CREATED AUTHOR AUTHOR'S ORGANIZ ATION 01/07/2023 [facility] DATE CREATED AUTHOR AUTHOR'S ORGANIZ ATION 11/11/2024 [facility] Goals (unrecognized section and content) Goals may [...] Primary Care Provider Active Dr. Russell Jang DO Attending Provider, Referring Pro vider Active Team [...] Primary Care Provider Active Dr. Mikey Garcia DO Attending Provider, Emergency P rovider Active Team Status: Inactive Member Role Status Dates Dr. Mayda Garcia MD Primary Care Provider Active Dr. Azam Frey DO Attending Provider, Emergency P rovider Active Team Status: Inactive Member Role Status Dates Dr. Mayda Garcia MD Primary Care Provider, Atten ding Provider Active Team Status: Inactive Member Role Status Dates Dr. Mayda Garcia MD Primary Care Provider Active Dr. Ulisses Chan DO Emergency Provider Active Team Status: Inactive [...] Provider, Refer ring Provider Active Dr. Parker Borruso , DO Attending Provider Active Team Status: Inactive Member Role Status Dates Dr. Mayda Garcia MD Primary Care Provider Active Dr. Winston Johnson MD Attending Provider Active Team Status: Inactive Member Role Status Dates Dr. Mayda Garcia MD Primary Care Provider, Refer ring Provider Active Mc LÓPEZ, REEN Attending Provider Active Team Status: Active Member Role Status Dates Dr. Mayda Garcia MD Primary Care P rovider, Attending Provider, Referring Provider Active Team Status: Active Member Role Status Dates Dr. Mayda Garcia MD Primary Care Provider Active Dr. Turner Armendariz DO Emergency Provider Active Dr. Edwin Kaplan , DO Admit Provider, Attending Provider Active Team Status: Active Member Role Status Dates Dr. Mayda Garcia MD Primary Care Provider Active Dr. Turner Armendariz , DO Emergency Provider Active Dr. Edwin Kaplan , DO Admit Provi jose r, Attending Provider, [...] Care Provider Active Dr. Turner Armendariz , Emergency Provider Active Dr. Edwin Kaplan , DO Admit Provider, Attending Provider Active Dr. Bhanu Milian MD Other Provider Active Power Plant Manager Relationship Specialty Start Date End Date Noris Garciarosemary Raza [address] [id number] PCP - General Internal Medicine 12/23/22 Power Plant Manager Relationship Specialty Start Date End Date Noris Garciarosemary Raza [address] [id number] PCP - General Internal Medicine 12/23/22 Power Plant Manager Relationship Specialty Start Date End Date Noris Garciarosemary Raza [address] [place] [address] PCP - General Internal Medicine 12/23/22 Power Plant Manager Relationship Specialty Start Date End Date Mayda Garcia [address] [place] [address] PCP - General Internal Medicine 12/23/22 Power Plant Manager Relationship Specialty Start Date End Date Mayda Garcia [address] [place] [address] PCP - General Internal Medicine 12/23/22 Power Plant Manager Relationship Specialty Start Date End Date Mayda Garcia [address] [place] [address] PCP - General Internal Medicine 12/23/22 Team Status: Inactive Member Role Status Dates Dr. Mayda Garcia MD Primary Care Provider Active Dr. Robbin Carlos MD Admit Provider, Attending Provid er Active Power Plant Manager Relationship Specialty Start Date End Date Mayda Garcia [address] [place] [address] PCP - General Internal Medicine 12/23/22 Team Status: Inactive Member Role Status Dates Dr. Mayda Garcia MD Primary Care Provider Active Dr. Pepe Ruiz MD Attending Provider, Referring Provider Active Team Status: Inactive Member Role Status Dates Dr. Mayda Garcia MD Primary Care Provider, Refer ring Provider Active Carlos Bravo LEAD RECOVERER, LEAD RECOVERER-C Attending Provider Active Team Status: Inactive Member Role Status Dates Dr. Mayda Garcia MD Primary Care Provider Active Carlos Bravo LEAD RECOVERER, LEAD RECOVERER-C Attending Provider, Referring Pro vider Active Team Status: Active Member Role Status Dates Dr. Mayda aGrcia MD Primary Care Provider Active Dr. Winston Johnson MD Attending Provider Active Team Status: Inactive Member Role Status Dates Dr. Mayda Garcia MD Primary Care Provider, Refer ring Provider Active Vanita Venegas LEAD RECOVERER, LEAD RECOVERER-C Attending Provider Active Team Status: Active Member Role Status Dates Dr. Mayda Garcia MD Primary Care Provider Active Dr. Winston Johnson MD Attending Provider, Referring Pro vider Active Team Status: Inactive Member Role Status Dates Dr. Mayda Garcia MD Primary Care Provider Active Vanita Venegas LEAD RECOVERER, LEAD RECOVERER-C Attending Provider, Referrin g Provider Active Team [...] MD Primary Care Provider Active Vanita Venegas LEAD RECOVERER, LEAD RECOVERER-C Attending Provider, Referrin g Provider Active Team [...] 2024 End: April 20, 2024 Vanita Venegas LEAD RECOVERER, LEAD RECOVERER-C Attending Provider Active Start: April 20, 2024 End: April 20, 2024 Vaniat Venegas LEAD RECOVERER, LEAD RECOVERER-C Referring Provider Active Start: April 20, 2024 [...] Active Start: April 25, 2024 Vanita Venegas LEAD RECOVERER, LEAD RECOVERER-C Referring Provider Active Start: April 25, 2024 Vanita Venegas LEAD RECOVERER, LEAD RECOVERER-C Other Provider Active Start: April 25, 2024 Dr. Russell Jang DO Attending Provider Active S tart: April [...] 2024 End: September 28, 2024 Vanita Venegas LEAD RECOVERER, LEAD RECOVERER-C Attending Provider Active Start: September 28, 2024 [...] October 03, 2024 End: October 03, 2024 Team Status: Inactive Member Role Status Dates Dr. Mayda Garcia MD Primary Care Provider Active Start: October 20, 2024 End: October 20, 2024 Vanita Venegas LEAD RECOVERER, LEAD RECOVERER-C Attending Provider Active Start: October 20, 2024 End: October 20, 2024 Vanita Venegas LEAD RECOVERER, LEAD RECOVERER-C Referring Provider Active Start: October 20, 2024 End: October 20, 2024 Team Status: Active Member Role/Relationship Status Dates Dr. Mayda Garcia MD Primary Care Provider Active Team Status: Inactive Member Role/Relationship Status Dates Dr. Mayda Garcia MD Primary [...] July 14, 2024 Team Status: Inactive Member Role/Relationship Status Dates Dr. Mayda Garcia MD Primary Care Provider Active Start: July 15, 2024 End: July 15, 2024 Dr. Felix Acosta MD Attending Provider Active S tart: July 15, 2024 End: July 15, 2024 Dr. Felix Acosta MD Emergency Provider Active S tart: July 15, 2024 End: July 15, 2024 Team Status: Inactive Member Role/Relationship Status Dates Dr. Mayda Garcia MD Primary Care Provider Active Start: August 10, 2024 End: August 10, 2024 Dr. Mayda Garcia MD Attending Provider Active Start: August 10, 2024 End: August 10, 2024 Dr. Mayda Garcia MD Referring Provider Active Start: August 10, 2024 End: August 10, 2024 Team Status: Inactive Member Role/Relationship Status Dates Dr. Mayda Garcia MD Primary Care Provider Active Start: September 16, 2024 End: September 16, 2024 Dr. Azam Frey DO Attending Provider Active Start: September 16, 2024 End: September 16, 2024 Dr. Azam Frey , Emergency Provider Active Start: September 16, 2024 End: September 16, 2024 Team Status: Inactive Member Role/Relationship Status Dates Dr. Madya Garcia MD Primary Care Provider Active Start: September 19, 2024 End: September 19, 2024 Dr. Mayda Garcia MD Referring Provider Active Start: September 19, 2024 End: September 19, 2024 RENE Avalos Attending Provider Active St art: September 19, 2024 End: September 19, 2024 Team Status: Inactive Member Role/Relationship Status Dates Dr. Mayda Garcia MD Primary Care Provider Active Start: September 21, 2024 End: September 21, 2024 Dr. Mayda Garcia MD Attending Provider Active Start: September 21, 2024 End: September 21, 2024 Dr. Mayda Garcia MD Referring Provider Active Start: September 21, 2024 End: September 21, 2024 Team Status: Inactive Member Role/Relationship Status Dates Dr. Mayda Garcia MD Primary Care Provider Active Start: September 22, 2024 End: September 22, 2024 Dr. Mayda Garcia MD Attending Provider Active Start: September 22, 2024 End: September 22, 2024 Dr. Mayda Garcia MD Referring Provider Active Start: September 22, 2024 End: September 22, 2024 Team Status: Inactive Member Role/Relationship Status Dates Dr. Mayda Garcia MD Primary Care Provider Active Start: September 28, 2024 End: September 28, 2024 Dr. Mayda Garcia MD Referring Provider Active Start: September 28, 2024 End: September 28, 2024 Vanita Venegas NP, LEAD RECOVERER-C Attending Provider Active Start: September 28, 2024 End: September 28, 2024 Team Status: Inactive Member Role/Relationship Status Dates Dr. Mayda Garcia MD Primary Care Provider Active Start: October 03, 2024 End: October 03, 2024 Dr. Mayda Garcia MD Referring Provider Active Start: October 03, 2024 End: October 03, 2024 Dr. Pepe Ruiz MD Attending Provider Active Start: October 03, 2024 End: October 03, 2024 Team Status: Inactive Member Role/Relationship Status Dates Dr. Mayda Garcia MD Primary Care Provider Active Start: October 20, 2024 End: October 20, 2024 Vanita Venegas LEAD RECOVERER, LEAD RECOVERER-C Attending Provider Active Start: October 20, 2024 End: October 20, 2024 Vanita Venegas NP, LEAD RECOVERER-C Referring Provider Active Start: October 20, 2024 End: October 20, 2024 Team Status: Inactive Member Role/Relationship Status Dates Dr. Mayda Garcia MD Primary Care Provider Active Start: November 07, 2024 End: November 07, 2024 Dr. Mayda Garcia MD Referring Provider Active Start: November 07, 2024 End: November 07, 2024 Dr. 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 [I25.10] Procedures UT CABG W/ARTERIAL GRAFT THREE ARTERIAL GRAFTS UT ECHO TRANSESOPHAG R-T 2D W/PRB IMG ACQUISJ I&R CABG AND SIS Echocardiography transesophageal real-time RoseAzam fenton MD [address] [place] [address], [address] [place] [address] [facility] [place] [address] [place] [address] Referral ID Status Reason Start Date Expiration Date Visits Re quested Visits Authorized [id number] 1 1 Reason Comments Post-op Scheduled Active [...] refused)2052 (Given - Provider: Nilsa Hills RN) 06 (Given - Provider: Nilsa Hills RN)1130 (Canceled [...] 0810 (Given - Provider: Anna Escalera, KARINA) 0809 (Given - Provider: Anna Escalera, KARINA) divalproex (Depakote) EC tablet 1,250 mg 1,250 [...] Tom RN) 0813 (Given - Provider: Anna Escalera, KARINA) 0811 (Given - Provider: Anna Escalera, KARINA) DULoxetine (Cymbalta) DR capsule 30 mg 30 mg, Oral, Daily, First dose on Thu01/02/23 at 0900, Do not crush or chew. 1008 (Given - Provider: Herminia Tom RN) 0814 (Given - Provider: Anna Escalera RN) 0811 (Given - Provider: Anna Escalera, KARINA) heparin injection 5,000 Units 5,000 Units, SubCUTAneous, 2 times daily, First dose on Thu01/04/23 at 0900 1006 (Given - Provider: Herminia Tom RN)2008 (Given - Provider: Nilsa Hills RN) 08 (Given - Provider: Anna Escalera, KARINA)2052 (Given - Provider: Nilsa Hills RN) 801 (Given - Provider: Anna Escalera, KARINA) Lidocaine 4 % patch 1 patch 1 [...] refused) 0816 (Medication Applied - Provider: Anna Escalera, KARINA)2015 (Medication Removed - Provider: Nilsa Hills RN) [...] than 60 1007 (Given - Provider: Herminia Tom, RN)2008 (Given - Provider: Nilsa Hills, RN) 809 (Given - Provider: Anna Escalera, RN)2052 (Given - Provider: Nilsa Hills RN) 807 (Given - Provider: Anna Escalera, KARINA) pantoprazole (ProtoNix) EC tablet 40 mg 40 mg, Oral, Daily before breakfast, First dose on Thu01/03/23 at 0800, Do not crush, chew, or split. 0620 (Given - Provider: Maurilio Busby RN) 0534 (Given - Provider: Nilsa Hills RN) 0600 (Given - Provider: Nilsa Hills RN) polyethylene glycol (PEG) 3350 (Miralax) packet 17 g 17 g, Oral, Daily, First dose on Thu01/01/23 at 1130, Recovery & On Unit, Bowel Regimen - for prevention of constipation. 1009 (Not Given - Provider: Herminia Tom RN - Reason: Patient/family refused) 0900 (Not Given - Provider: Anna Escalera RN - Reason: Patient/family refused) 0800 (Not Given - Provider: Anna Escalera RN - Reason: Patient/family refused) senna-docusate sodium (Senokot-S) 8.6-50 MG tablet 2 tablet 2 tablet, Oral, Nightly, First dose on Thu01/01/23 at 2100, Recovery & On Unit, Bowel Regimen - for prevention of constipation. 2008 (Given - Provider: Nilsa Hills RN) 2052 (Given - Provider: Nilsa Hills RN) PRN Medication Order 01/09/2023 01/10/2023 01/11/2023 calcium gluconate 2000 mg in 100 mL IVPB premix 2,000 mg, IntraVENous, at 50 mL/hr, Administer over 2 Hours, PRN, ionized calcium less than 4.3, Starting on Thu01/01/23 at 1117, Recovery & On Unit, Give 2000 mg for ionized calcium less than 4.3 premix bag dextrose 5 % infusion 100 mL/hr, IntraVENous, PRN, Blood sugar less than 70mg/dL, Starting on Thu01/01/23 at 1117, Recovery & On Unit, Start infusion following administration of dextrose 50% or glucagon. dextrose 50 % solution 12.5 g 12.5 g, IntraVENous, PRN, low blood sugar, Blood glucose less than 70 mg/dL and patient NOT ALERT or NPO., Starting on Thu01/01/23 at 1117, Recovery & On Unit, If [...] does not have IV access., Starting on Thu01/01/23 at 1117, Recovery & On Unit, After administration, attempt intravenous access and start D5W at 100 mL/hr. Repeat blood glucose in 15 minutes x2 and notify provider. glucose oral gel 15 g 15 g, Oral, As needed, low blood sugar, Starting on Thu01/01/23 at 1117, Recovery & On Unit, If [...] PRN, wheezing, shortness of breath, Starting on Thu01/01/23 at 1117, Recovery & On Unit magnesium sulfate IVPB 4,000 mg(Linked Group 1) 4,000 mg, IntraVENous, at 25 mL/hr, Administer over 4 Hours, As needed, Per Magnesium Replacement Protocol, Starting on 01/01/23 at 1117, Recovery & On Unit, [...] BE BASED ON THE PRIMARY CLINICAL RECORDS. [employer] [facility]. provides no warranty or guarantee of the accuracy or completeness of information in this document.
== END | disposition home or self-care (01) ==
LOC: LAB 14:35
PROVIDERS: PCP Internal Medicine; Referring Provider Psychiatry & Neurology Neurology; Visit Provider Psychiatry & Neurology Neurology
DX: Z00.00 Encounter for general adult medical examination without abnormal findings (principal)
CPT/HCPCS: 36415; 80053; 80164; 82140; 85027

== ENCOUNTER → 2024-11-11 | Outpatient (CLI) | payer MEDICARE, SELFPAY ==
[2023-07-29 08:29] VITALS: BMI 30.2
== END | disposition home or self-care (01) ==
LOC: SL 15:53
PROVIDERS: PCP Internal Medicine; Referring Provider Nurse Practitioner Acute Care; Visit Provider Nurse Practitioner Acute Care
DX: Z00.00 Encounter for general adult medical examination without abnormal findings (principal)

== ENCOUNTER 2024-11-13 16:16 | Observation (INO) | payer MEDICARE, SELFPAY ==
[2023-07-29 08:29] VITALS: BMI 30.2
[2024-11-13] VITALS (11 sets, daily range): BP systolic 131–178; BP diastolic 73–98; PULSE 34–93; RESP 16–29; TEMP 36.6–36.9; O2SAT 97–100; BMI 31.1
--- NOTE | 2024-11-13 16:46 | EKG12_ITS ---
Test Reason : CP Blood Pressure : */* mmHG Vent. Rate : 103 BPM Atrial Rate : 103 BPM P-R Int : 142 ms QRS Dur : 68 ms QT Int : 354 ms P-R-T Axes : 57 10 47 degrees QTcB Int : 463 ms Sinus tachycardia Possible Left atrial enlargement Borderline ECG Confirmed by Aleksandr Salinas ([id number]), social media editor ADIA ARDON ([id number]) on 11/14/2024 1:06:10 PM Referred By: TA Confirmed By: Aleksandr Salinas
--- NOTE | 2024-11-13 16:55 | ED.VIS.CHEST ---
HPI History of Present Illness Chief Complaint: Chest Pain Detail of Chief Complaint: Chest pain Informant: patient Narrative Narrative: Patient presents to the emergency department complaint chest pain. She presents via EMS. She presents from home. She states that she had just gotten home from [place] and was sitting when she developed sudden onset of sharp pain beneath her left breast that radiated to her back and into her left arm. This pain remains. Patient states the pain reminded her of a year ago when she required four-vessel CABG at [facility]. Patient rates her pain an 8 out of 10 currently. She states the pain is worse with deep breath. She is currently not anticoagulated. She denies recent travel or surgery. She denies recent illness. Patient states the pain made her nauseated and she was sweaty. [facility] Medical History (Updated 11/13/24 @ 19:[address] Turner Armendariz, ) Keloid scar of skin Vertigo Chest pain Dyspnea on exertion Wears partial dentures Injury of head and neck Gastric reflux Encounter for transesophageal echo performed as part of open chest procedure History of echocardiogram History of stress test Tremor Retained suture Chest wall tenderness Fatigue Flu vaccine need Lower extremity edema History of coronary artery disease History of hypertension Left ankle pain Right hip pain Right groin pain Memory changes Left shoulder pain Cervical radiculopathy Cough Health care maintenance Right shoulder pain Therapeutic drug monitoring Osteoporosis Compression fracture of lumbar spine, non-traumatic Dysuria Dysuria Urinary frequency Acute back pain Personal history of colonic polyps GERD (gastroesophageal reflux disease) Hyperglycemia due to type 2 diabetes mellitus Wears glasses Diabetes Arthritis Anemia Non-smoker CPAP (continuous positive airway pressure) dependence Sleep apnea Shortness of breath on exertion Cardiology follow-up encounter Abdominal pain Osteoarthritis Congestive heart failure (CHF) Routine health maintenance Colon cancer screening Foreign body in stomach Seizure disorder Type 2 diabetes mellitus Diabetes mellitus type 2 in nonobese Obesity Urinary frequency Conversion disorder Non-toxic goiter Essential (primary) hypertension RIGHT FOOT HEEL SPUR Atherosclerotic heart disease of [place] coronary artery without angina pectoris Rheumatoid arthritis Diabetes type 2, controlled Hives Seasonal allergies Hyperlipidemia Chronic diastolic CHF (congestive heart failure) Home Medications ?Medication ?Instructions ?Recorded ?Last Taken ?Type multivitamin 1 tab PO DAILY vitamin 05/20/19 12/16/22 History blood-glucose meter (True Metrix #1 ea 02/03/20 Unknown Rx Air Glucose Meter kit) calcium citrate 200 mg PO DAILY supplement 05/21/20 12/16/22 History disability placard #1 ea 06/27/20 Unknown Rx aspirin 81 mg tablet,delayed 81 mg PO DAILY heart 08/13/20 12/11/22 History release (Adult Low Dose Aspirin) blood sugar diagnostic (True #100 ea 06/17/23 Unknown Rx Metrix Glucose Test Strip) lancets 33 gauge #100 ea 06/17/23 Unknown Rx methotrexate sodium 2.5 mg tablet 12.5 mg PO QWEEK 10/26/23 Unknown History oxycodone 5 mg tablet 5 mg PO Q4H PRN PRN Pain Score 11/18/23 Unknown Rx 4-10 3 days #20 tabs Handicap Placard #1 ea 01/07/24 Unknown Rx denosumab 60 mg/mL subcutaneous 60 mg subcut [id number] bone health 01/19/24 Unknown Rx syringe (Prolia) #1 mL gabapentin 300 mg capsule 300 mg PO QHS #30 caps 02/14/24 Unknown Rx metoprolol tartrate 25 mg tablet 25 mg PO QDAY heart #90 tabs 04/19/24 Unknown Rx hydrocodone-acetaminophen 5-325mg 1 tab PO Q6H PRN PRN Pain 3 days 07/14/24 Unknown Rx 5mg-325mg #10 TABLETS ibuprofen 600 mg tablet 600 mg PO Q6H PRN PRN pain #20 07/14/24 Unknown Rx TABLETS hydroxychloroquine 200 mg tablet See Rx Instructions .Route 09/21/24 Unknown Rx .COMPLEX immunosuppressant #180 tabs sitagliptin phosphate 100 mg See Rx Instructions .Route 09/21/24 Unknown Rx tablet (Januvia) .COMPLEX diabetes #90 tabs atorvastatin 80 mg tablet 80 mg PO QHS cholesterol 09/28/24 Unknown History neomycin 3.5 mg/g-polymyxin B ophthalmic (eye) BID 09/28/24 Unknown History 10,000 unit/g-dexameth 0.1 % eye oint divalproex 500 mg tablet,delayed 500 mg .Route .COMPLEX seizures 11/07/24 Unknown Rx release (Depakote) #90 tabs Allergy/AdvReac Type Severity Reaction Status Date / Time prednisone AdvReac Severe Hives Verified 11/13/24 16:26 Family History Grandmother Alcoholism Cancer Arthritis Mother Alcoholism Diabetes blood clots Hypertension Grandfather Heart disease Sister Thyroid disorder Other Breast cancer Cervical cancer Colon cancer Surgical History History of coronary artery bypass graft History of cardiac catheterization History of left heart catheterization (09/20/18) History of coronary artery stent placement (03/22/18) History of carpal tunnel surgery History of section H/O: hysterectomy Social History household members: none housing: apartment Smoking Status: Never smoker second hand exposure: No alcohol intake: current alcohol intake frequency: holidays/special occasions only substance use type: does not use what type of physical activity do you participate in: none ROS ROS ED ROS Narrative Diaphoresis Review of Systems ROS Unobtainable: other Constitutional Constitutional ED: Reports lethargy; Denies chills, fever(s), sweats or weight loss Eyes Eyes: Denies blurry vision, change in vision or diplopia ENT ENT ED: Denies rhinorrhea or sore throat Cardiovascular Cardiovascular: Reports chest pain; Denies orthopnea or racing heartbeat Respiratory/Chest Respiratory/Chest: Reports dyspnea and dyspnea on exertion; Denies cough, orthopnea or sputum Gastrointestinal Gastrointestinal: Reports nausea; Denies abdominal pain, diarrhea or vomiting Genitourinary Genitourinary ED: Denies dysuria, hematuria or urinary frequency Musculoskeletal Musculoskeletal: Denies arthralgias, back pain, myalgias or neck pain Integumentary Denies abscess, Abrasions or rash Neurologic Neurologic: Denies headache(s) or weakness Psychiatric Psychiatric: Denies anxiety, depression or suicidal thoughts Endocrine Endocrinology: Denies polydipsia, polyphagia or polyuria Hematologic/Lymphatic Hematologic/Lymphatic: Denies easy bleeding, easy bruising or lymphadenopathy Allergic/Immunologic Allergic/Immunologic ED: Denies mouth swelling, tongue swelling or urticaria EXAM Physical Exam Const Vital Signs: 11/13/24 16:23 11/13/24 16:26 11/13/24 17:09 Temperature 98.4 F Temperature Source Oral Pulse Rate 34 L Respiratory Rate 29 H Respiratory Effort Normal Non-Labored Blood Pressure 162/77 H Blood Pressure Mean 105 Pulse Ox 100 Oxygen Delivery Method Room Air Room Air 11/13/24 17:16 11/13/24 18:00 11/13/24 19:00 Temperature Temperature Source Pulse Rate 84 81 84 Respiratory Rate 22 H 19 H 19 H Respiratory Effort Blood Pressure 148/77 H 149/76 H 155/81 H Blood Pressure Mean 100 100 105 Pulse Ox 97 98 98 Oxygen Delivery Method Room Air Room Air Room Air Positive well nourished and well developed General Appearance ED: well developed and NAD HEENT Reports TM's clear and moist mucous membranes normocephalic and atraumatic; Negative for trauma or tenderness Tympanic Membrane ED: Yes TM's clear Eyes PERRL and EOMs intact bilaterally General Eye ED: Negative for pale conjunctiva or scleral icterus Neck no lymphadenopathy, supple and no JVD General: Negative for tenderness Chest Wall inspection of chest normal and palpation of chest normal Chest: Negative for tenderness Resp normal respiratory effort and clear to auscultation bilaterally Effort and Inspection: Negative for respiratory distress or pain with movement Auscultation: Negative for rhonchi, wheezes or diminished lung sounds Cardio regular rate, regular rhythm, S1 normal heart sound, S2 normal heart sound and no murmurs Peripheral Pulses: pulses 2+ throughout GI normal to inspection, nondistended, normoactive bowel sounds, soft to palpation, non-tender, non-distended and no masses Back/Spine no CVA tenderness and no thoracic nor lumbar tenderness Extremity normal to inspection General Extremety ED: Negative for edema General Extremity: Negative for edema Neuro oriented x3, CN's II-XII intact bilaterally, no sensory deficits noted and gait normal Sensorium / Orientation: awake, alert, oriented to person, oriented to place and oriented to time Motor Exam: strength 5/5 throughout and strength abnormal Psych mental status grossly normal Skin no rashes or lesions noted and no wounds MDM MDM MDM Narrative Medical decision making narrative: Patient presents with chest pain with history of coronary artery disease. Sudden onset. EKG obtained on arrival showed a sinus rhythm with ventricular rate of 103 bpm with no acute ST segment changes. CBC with differential shows white count 4.6 with hemoglobin 11.1 and platelet count of 224. Chemistries unremarkable. Initial troponin was normal at 9. Delta troponin elevated at 18. D-dimer was normal at 0.27. Initially she was given morphine for pain. Seem to help her pain slightly but continued to have pain. Will obtain a second EKG and will give nitroglycerin. Discussed with hospitalist to evaluate patient for admission. Repeat EKG obtained showed a sinus rhythm with rate of 89 bpm with no acute ST segment changes Lab Data Attestation: I reviewed the patient's lab results. Labs: Laboratory Results - last 24 hr 11/13/24 11/13/24 11/13/24 16:05 18:15 18:20 WBC 4.6 RBC 3.41 L Hgb 11.1 L Hct 33.3 L MCV 97.7 MCH 32.6 H MCHC 33.3 RDW Std Deviation 50.8 H RDW Coeff of [place] 14.2 Plt Count 224 MPV 11.5 Immature Gran % (Auto) 0.400 Neut % (Auto) 55.5 Lymph % (Auto) 35.9 [place] % (Auto) 6.3 Eos % (Auto) 1.7 Baso % (Auto) 0.2 Absolute Neuts (auto) 2.6 Absolute Lymphs (auto) 1.65 Nucleated RBC % 0 D-Dimer Quant (PE/DVT) Cancelled 0.27 Sodium 140 Potassium 4.5 Chloride 104 Carbon Dioxide 23.9 Anion Gap 12 BUN 21 H Creatinine 0.82 Est GFR (MDRD) Non-Af 77 BUN/Creatinine Ratio 25.2 H Glucose 126 H Calcium 9.0 Troponin T High Sens 9 D Troponin T Hi Sens 2 Hr 18 H Radiography Diagnostic Testing: Clinical Impression(s) from Imaging Studies Chest X-Ray 11/13/24 17:17 IMPRESSION: Mildly prominent interstitial markings could be the result of hypoventilatory change, pulmonary edema, or atypical infection. Reading Location: [facility] 1 view chest x-ray obtained interpreted by myself as no evidence of infiltrate or pneumothorax or acute disease process. EKG Initial EKG: Attestation: I personally reviewed and interpreted this EKG as follows: Comments: Sinus rhythm with ventricular rate of 103 bpm with no acute ST segment changes. Discharge Plan Dx/Rx/DC Orders Clinical Impression: Chest pain, ACS (acute coronary syndrome) Disposition Disposition: [facility]
[2024-11-13] MEDS: 0.9% Normal Saline (1000mL) 1,000 ML 150 ML IV (17:06)
[2024-11-13 17:07] LABS: Hematocrit 33.3 % (37-47); Hemoglobin 11.1 g/dL (12.0-15.0); Immature Granulocytes Count 0.020 X10^3/uL (0.0-0.0); Mean Corp Hgb Conc 33.3 g/dL (32-36); Mean Corpuscular Volume 97.7 fL (81-99); Mean Platelet Vol. 11.5 fl (6.2-12.0); NRBC Flagged by Analyzer 0 % (0-5); Platelet Count 224 K/mm3 (150-450); RBC Distribution Width CV 14.2 % (11.6-14.6); RBC Distribution Width SD 50.8 fl (35.1-43.9); Red Blood Count 3.41 M/mm3 (4.2-5.4); White Blood Count 4.6 K/mm3 (4.4-11.0)
--- NOTE | 2024-11-13 17:17 | RAD_ITS ---
PROCEDURE: CHEST 1 VIEW (PORTABLE) 11/13/2024 REASON FOR EXAM: CHEST PAIN TECHNIQUE: Frontal view of the chest. COMPARISON: Chest radiographs on 09/16/2024 and 07/16/2019 FINDINGS: Hardware: Median sternotomy wires. Heart: Sequela of CABG. Mild cardiomegaly is unchanged. Lungs: Lung volumes are slightly low. No focal consolidation. Mild increased prominence of the interstitial markings. Eventration of the right hemidiaphragm. Bones: Unchanged. RAD/Chest 1 View (Portable) IMPRESSION: Mildly prominent interstitial markings could be the result of hypoventilatory c hange, pulmonary edema, or atypical infection. Reading Location: [place]
[2024-11-13 17:50] LABS: Anion Gap 12 (5-15); BUN 21 mg/dL (4-19); BUN/Creat Ratio 25.2 RATIO (10-20); Calcium,Total 9.0 mg/dL (7.6-11.0); Carbon Dioxide 23.9 mmol/L (21.0-32.0); Chloride 104 mmol/L (98-108); Glucose 126 mg/dL (70-99); Potassium 4.5 mmol/L (3.3-5.1); Troponin T High Sensitivity 9 ng/L (<=14)
[2024-11-13 18:40] LABS: D-Dimer Quantitative (DVT/PE) 0.27 FEU/ug/m (0.27-0.49)
--- OUTSIDE RECORDS SUMMARY | 2024-11-13 18:55 | XMS RPT_ITS | CCD ---
Author Organization [facility] CliniSy[facility]v Care Team Providers Care Food Beverage Server Name Role Phone CHRIS YAO Unavailable Unavailable [...] Unavailable TESTRAKE, MYNOR Referring Unavailable KIM, GLEN (TOOL AND DIE MAKER) Referring Unavailable KIM, GLEN (TOOL AND DIE MAKER) Referring Unavailable JENELLE, TILA (PT) Attending Unavailable TESTRAKE, MYNOR Referring Unavailable Dr. Mayda Garcia Primary Care Provider [phone] Dr. aMyda Garcia Attending Provider [phone] Dr. Mayda Garcia Referring Provider Jayant STOCK BLENDER, STOCK BLENDER-C Peggy Attending Provider Dr. Mayda Garcia Primary Care Provider [phone] Dr. Mayda Garcia Referring Provider Jayant STOCK BLENDER, STOCK BLENDER-C Peggy Attending Provider Venegas STOCK BLENDER, STOCK BLENDER-C Vanita Attending Provider Dr. Mayda Garcia Attending [...] Referring Provider Dr. Turner Armendariz Emergency Provider [facility], Dr. Villanueva Admit Provider [facility], Dr. Villanueva Attending Provider [facility], Dr. Villanueva Other Provider Alex, Dr. [...] Provider Dr. Pepe Ruiz Referring Provider Roof STOCK BLENDER, STOCK BLENDER-C Carlos Bush Attending Provider Dr. Mayda Garcia Primary Care Provider [phone] Dr. Mayda Garcia Attending Provider [phone] Dr. Mayda Garcia Referring Provider [phone] Dr. Turner Armendariz Emergency Provider Rosaura, Dr. Pineda Admit Provider Dr. Edwin Kaplan Attending Provider Dr. Edwin Kaplan Other Provider Maicol, Dr. Drummond Other Provider Dr. Bhanu Milian Attending Provider Dr. Pepe Ruiz Attending Provider Dr. Ppee Ruiz Referring Provider Roof STOCK BLENDER, STOCK BLENDER-C Carlos Bush Attending Provider Dr. Mayda Garcia Primary Care Provider [phone] Dr. Mayda Garcia Attending Provider [phone] Dr. Mayda Garcia Referring Provider [phone] Dr. Pepe Ruiz Attending Provider Dr. Pepe Ruiz Referring Provider Roof STOCK BLENDER, STOCK BLENDER-C Carlos Bush Attending Provider Dr. Winston Johnson Attending Provider Dr. Parker Pickett Attending Provider Dr. Mayda Garcia Primary Care Provider [phone] Dr. Pepe Ruiz Attending Provider Dr. Pepe Ruiz Referring Provider Dr. Mayda Garcia Attending Provider [phone] Dr. Mayda Garcia Referring Provider [phone] Shelly STOCK BLENDER, STOCK BLENDER-C Carlos Bush Attending Provider Theo STOCK BLENDER, STOCK BLENDER-C Vanita Attending Provider Dr. Mayda Garcia Primary Care Provider [phone] Dr. Winston Johnson Attending Provider Dr. Pepe Ruiz Attending Provider Dr. Pepe Ruiz Referring Provider Dr. Mayda Garcia Referring Provider [phone] Dr. Parker Pickett Attending Provider Theo STOCK BLENDER, STOCK BLENDER-C Vanita Attending Provider Dr. Mayda Garcia Attending [...] Ruiz MD Referring Provider [phone] Theo STOCK BLENDER-CVanita Other Provider Dr. Russell Jang DO Attending Provider Kashif ZUNIGA, Dr. Fraire Other Provider Joes ZUNIGA, Dr. Brunner Attending Provider Kashif ZUNIGA, [...] Dr. Azam Frey DO Attending Provider Theo STOCK BLENDER-C, Vanita Attending Provider Jose ZUNIGA, Dr. Brunner Primary Care Provider Jose ZUNIGA, Dr. Brunner Attending Provider Jose ZUNIGA, Dr. Brunner Referring Provider Theo STOCK BLENDER-C, Vanita Referring Provider Jose ZUNIGA, Dr. Brunner Primary Care Provider Sara ZUNIGA, Dr. Cantu Attending Provider [phone] Ulisses Chan Attending Unavailable Oleghe, Efewongbe Primary [...] Care Unavailable Ulisses Chan Attending Unavailable Theo STOCK BLENDER, Vanita Attending Unavailable Theo STOCK BLENDER, Vanita Referring Unavailable Oleghe, Efewongbe Primary Care Unavailable Theo STOCK BLENDER, Vanita Attending Unavailable Theo STOCK BLENDER, Vanita Referring Unavailable Oleghe, Efewongbe Primary Care Unavailable Maurilio Bradford Consulting Unavailable Oleghe, Efewongbe Primary Care Unavailable Maurilio Bradford Admitting Unavailable Lenka Finley Attending Unavailable Oleghe, Efewongbe Primary Care Unavailable Azam Frey Attending Unavailable Michael Delacruz Attending Unavailable Jonas Cross [...] Unavailable Oleghe, Efewongbe Primary Care Unavailable Venegas STOCK BLENDER, Vanita Referring Unavailable Oleghe, Efewongbe Primary Care Unavailable Theo STOCK BLENDER, Vanita Attending Unavailable Oleghe, Efewongbe Primary Care Unavailable Oleghe, Efewongbe Referring Unavailable Oleghe, Efewongbe Attending Unavailable Oleghe, Efewongbe Primary Care Unavailable Raullanki, Yee Referring Unavailable Yee Rowland Attending Unavailable Mynor Miller Referring Unavailable Oleghe, Efewongbe Primary Care Unavailable Mynor Miller Attending Unavailable Aleksandr Serra Referring Unavailable Oleghe, Efewongbe Primary Care Unavailable Aleksandr Serra Attending Unavailable Theo STOCK BLENDER, Vanita Attending Unavailable Theo GILLESPIE, Vanita Referring Unavailable Oleghe, Efewongbe Primary Care Unavailable Pepe Ruiz Attending Unavailable Oleghe, Efewongbe Primary Care Unavailable Pepe Ruiz Referring Unavailable Oleghe, Efewongbe Primary Care Unavailable Pepe Ruiz Attending Unavailable Oleghe, Efewongbe Referring Unavailable Theo STOCK BLENDER, Vanita Attending Unavailable Oleghe, Efewongbe Primary Care [...] Care Unavailable Agus Mg Attending Unavailmax Venegas STOCK BLENDER, Vanita Attending Unavailable Oleghe, Efewongbe Primary Care Unavailable Oleghe, Efewongbe Referring Unavailable Theo STOCK BLENDER, Vanita Referring Unavailable Theo STOCK BLENDER, Vanita Consulting Unavailable Oleghe, Efewongbe Primary Care [...] Propensity to adverse reactions (disorder) 4 AOF [facility] (20 sources) predniSONE Drug Allergy 2 Nausea, Hives [facility] (8 sources) Prednisone Allergy to substance 7 Hives, Nausea And Vomiting [facility] (1 source) predniSONE Drug Allergy 5 [facility] Medications Current Medications Medication Drug Class(es) [...] & On Unit 20 ml albumin human, snf 250 mg/ml injection (2 sources) Human Serum [...] mg docusate sodium 50 mg / sennosides, snf 8.6 mg oral tablet (1 source) Start: [...] 2021 1:00am 0.5 ml heparin sodium, porcine 96680 unt/ml prefilled syringe (1 source) Unfractionated Heparin, [...] Start: 02-23-2013 End: 04-07-2013 polyethylene glycol 3350 89962 mg powder for oral solution (20 sources) [...] Discontinued (Stop taking at discharge) triamcinolone acetonide 0.92128 mg/mg topical ointment (20 sources) Corticosteroid Start: [...] disease (20 sources) Atherosclerotic heart disease of [place] coronary artery without angina pectoris; Translations: [Coronary [...] monitoring] 01-13-2022 Episodic Other aftercare (2 sources) USP (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 of insulin; Translations: [USP (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 of insulin (HCC)] Onset: 12-29-2022 [...] Neurology Visit Reporton Neurology Visit Report Normal [facility] Office Visit Reporton 2024 Office Visit Report Normal [facility] Pulmonary Visit Reporton Pulmonary Visit Report Normal [facility] RUBI w/ Reflex Mult Confirmon 09-27-2024 ANTI-DNA (DS)AB TNP Normal [facility] Comment on above: Performed By: #### L 101.9900, L505.7010, L500.2500, L100.0100, L3100.5450, L501.6710 ####[facility] [address] [place], [address] ANTI-SS-A TNP Normal [facility] Comment on above: Performed By: #### L 101.9900, L505.7010, L500.2500, L100.0100, L3100.5450, L501.6710 ####[facility] [address] [place], [address] ANTI-SS-B TNP Normal [facility] Comment on above: Performed By: #### L 101.9900, L505.7010, L500.2500, L100.0100, L3100.5450, L501.6710 ####[facility] [address] [place], [address] Absolute lymphocyte countOrd ered By: Mayda Garcia on 09-22-2024 Lymphocytes Auto (Unsp spec) [#/Vol] 1.43 10*3/uL 0.83-4.51 [facility] Anion gap in Serum or Plasma Ordered By: Mayda Garcia on 09-22-2024 Anion gap [Moles/Vol] 11 mmol/L 5-15 [facility] Automated lymphocyte count a s percentage of total leukocytesOrdered By: Mayda Garcia on 09-22-2024 Lymphocytes/100 WBC Auto (Unsp spec) 33.1 % 19-41 [facility] BUN/creatinine ratioOrdered By: Mayda Garcia on 09-22-2024 Urea nitrogen/Creatinine [Mass ratio] 26.3 mg/mg High 10- [facility] Basic Metabolic Profile (BMP )on 09-22-2024 BUN/CRE 26.3 RATIO High - [facility] Comment on above: Performed By: #### L 101.9900, L505.7010, L500.2500, L100.0100, L3100.5450, L501.6710 ####[facility] [address] [place], [address] Calcium [Mass/Vol] 8.4 mg/dL Normal 7.6-11.0 [facility] Comment on above: Performed By: #### L 101.9900, L505.7010, L500.2500, L100.0100, L3100.5450, L501.6710 ####[facility] [address] [place], [address] Chloride [Moles/Vol] 108 mmol/L Normal 98-108 [facility] Comment on above: Performed By: #### L 101.9900, L505.7010, L500.2500, L100.0100, L3100.5450, L501.6710 ####[facility] [address] [place], [address] CO2 [Moles/Vol] 21.6 mmol/L Normal 21.0-32.0 [facility] Comment on above: Performed By: #### L 101.9900, L505.7010, L500.2500, L100.0100, L3100.5450, L501.6710 ####[facility] [address] [place], [address] Creatinine [Mass/Vol] 0.86 mg/dL Normal 0.70-1.20 [facility] Comment on above: Performed By: #### L 101.9900, L505.7010, L500.2500, L100.0100, L3100.5450, L501.6710 ####[facility] [address] [place], [address] GAP 11 Normal 5-15 [facility] Comment on above: Performed By: #### L 101.9900, L505.7010, L500.2500, L100.0100, L3100.5450, L501.6710 ####[facility] [address] [place], [address] GFR/1.73 sq M.predicted among non-blacks MDRD (S/P/Bld) [Vol rate/Area] 72 mL/min/{1.73_m2} Normal >60 [facility] Comment on above: Result Comment: mL/m in/1.73m2 CKD-EPI Creatinine Equation (2020) Performed By: #### L 101.9900, L505.7010, L500.2500, L100.0100, L3100.5450, L501.6710 ####[facility] [address] [place], [address] Glucose [Mass/Vol] 105 mg/dL High 70-99 [facility] Comment on above: Performed By: #### L 101.9900, L505.7010, L500.2500, L100.0100, L3100.5450, L501.6710 ####[facility] [address] [place], [address] Potassium [Moles/Vol] 4.1 mmol/L Normal 3.3-5.1 [facility] Comment on above: Performed By: #### L 101.9900, L505.7010, L500.2500, L100.0100, L3100.5450, L501.6710 ####[facility] [address] [place], [address] Sodium [Moles/Vol] 140 mmol/L Normal 133-145 [facility] Comment on above: Performed By: #### L 101.9900, L505.7010, L500.2500, L100.0100, L3100.5450, L501.6710 ####[facility] [address] [place], [address] Urea nitrogen [Mass/Vol] 23 mg/dL High 4-19 [facility] Comment on above: Performed By: #### L 101.9900, L505.7010, L500.2500, L100.0100, L3100.5450, L501.6710 ####[facility] [address] [place], [place], [address] Basophil percentageOrdered B y: Mayda Garcia on 09-22-2024 Basophils/100 WBC (Bld) 0.7 % 0-1 [facility] Bilirubin directOrdered By: Mikhail Esposito on 09-22-2024 Bilirubin.direct [Mass/Vol] 0.15 mg/dL 0.00-0.30 [facility] Bilirubin, totalOrdered By: Mikhail Espsoito on 09-22-2024 Bilirubin [Mass/Vol] 0.33 mg/dL 0.00-1.30 [facility] CBC W/Diff, Automatedon 09-02 Absolute Lymph 1.43 X10 3/uL Normal 0.83-4.51 [facility] Comment on above: Performed By: #### L 101.9900, L505.7010, L500.2500, L100.0100, L3100.5450, L501.6710 ####[facility] [address] [place], [address] Absolute Neut 2.4 X10 3/uL Normal 2.0-7.7 [facility] Comment on above: Performed By: #### L 101.9900, L505.7010, L500.2500, L100.0100, L3100.5450, L501.6710 ####[facility] [address] [place], [address] Basophils/100 WBC (Bld) 0.7 % Normal 0-1 [facility] Comment on above: Performed By: #### L 101.9900, L505.7010, L500.2500, L100.0100, L3100.5450, L501.6710 ####[facility] [address] [place], [address] Eosinophils/100 WBC (Bld) 2.3 % Normal 0-5 [facility] Comment on above: Performed By: #### L 101.9900, L505.7010, L500.2500, L100.0100, L3100.5450, L501.6710 ####[facility] [address] [place], [address] Erythrocyte distribution width (RBC) [Ratio] 13.9 % Normal 11.6-14.6 [facility] Comment on above: Performed By: #### L 101.9900, L505.7010, L500.2500, L100.0100, L3100.5450, L501.6710 ####[facility] [address] [place], [address] Hematocrit (Bld) [Volume fraction] 33.7 % Low 37-47 [facility] Comment on above: Performed By: #### L 101.9900, L505.7010, L500.2500, L100.0100, L3100.5450, L501.6710 ####[facility] [address] [place], [address] Hemoglobin (Bld) [Mass/Vol] 11.2 g/dL Low 12.0-15.0 [facility] Comment on above: Performed By: #### L 101.9900, L505.7010, L500.2500, L100.0100, L3100.5450, L501.6710 ####[facility] [address] [place], [address] IG% 0.500 Normal 0.0-0.9 [facility] Comment on above: Result Comment: IG% - Immature Granulocytes (promyelocytes, myelocytes andmetamyelocytes) > 1% indicates that a LEFT SHIFT is Present. Performed By: #### L 101.9900, L505.7010, L500.2500, L100.0100, L3100.5450, L501.6710 ####[facility] [address] [place], [address] Lymphocytes/100 WBC (Bld) 33.1 % Normal 19-41 [facility] Comment on above: Performed By: #### L 101.9900, L505.7010, L500.2500, L100.0100, L3100.5450, L501.6710 ####[facility] [address] [place], [address] MCH (RBC) [Entitic mass] 32.5 pg High 27.0-32.0 [facility] Comment on above: Performed By: #### L 101.9900, L505.7010, L500.2500, L100.0100, L3100.5450, L501.6710 ####[facility] [address] [place], [address] MCHC (RBC) [Mass/Vol] 33.2 g/dL Normal 32-36 [facility] Comment on above: Performed By: #### L 101.9900, L505.7010, L500.2500, L100.0100, L3100.5450, L501.6710 ####[facility] [address] [place], [address] MCV (RBC) [Entitic vol] 97.7 fL Normal 81-99 [facility] Comment on above: Performed By: #### L 101.9900, L505.7010, L500.2500, L100.0100, L3100.5450, L501.6710 ####[facility] [address] [place], [address] Monocytes/100 WBC (Bld) 8.1 % Normal 0-10 [facility] Comment on above: Performed By: #### L 101.9900, L505.7010, L500.2500, L100.0100, L3100.5450, L501.6710 ####[facility] [address] [place], [address] Neutrophils/100 WBC (Bld) 55.3 % Normal 47-70 [facility] Comment on above: Performed By: #### L 101.9900, L505.7010, L500.2500, L100.0100, L3100.5450, L501.6710 ####[facility] [address] [place], [address] Nucleated RBC (Bld) [#/Vol] 0 10*3/uL Normal 0-5 [facility] Comment on above: Performed By: #### L 101.9900, L505.7010, L500.2500, L100.0100, L3100.5450, L501.6710 ####[facility] [address] [place], [address] Platelet mean volume (Bld) [Entitic vol] 12.2 fL High 6.2-12.0 [facility] Comment on above: Performed By: #### L 101.9900, L505.7010, L500.2500, L100.0100, L3100.5450, L501.6710 ####[facility] [address] [place], [address] Platelets (Bld) [#/Vol] 155 10*3/uL Normal 150-450 [facility] Comment on above: Performed By: #### L 101.9900, L505.7010, L500.2500, L100.0100, L3100.5450, L501.6710 ####[facility] [address] [place], [address] RBC (Bld) [#/Vol] 3.45 10*6/uL Low 4.2-5.4 [facility] Comment on above: Performed By: #### L 101.9900, L505.7010, L500.2500, L100.0100, L3100.5450, L501.6710 ####[facility] [address] [place], [address] RDW SD 49.9 fl High 35.1-43.9 [facility] Comment on above: Performed By: #### L 101.9900, L505.7010, L500.2500, L100.0100, L3100.5450, L501.6710 ####[facility] [address] [place], [address] WBC (Bld) [#/Vol] 4.3 10*3/uL Low 4.4-11.0 [facility] Comment on above: Performed By: #### L 101.9900, L505.7010, L500.2500, L100.0100, L3100.5450, L501.6710 ####[facility] [address] [place], [address] CRPon 09-22-2024 C-REACTIVE PROT 3.46 mg/L High 0.0-3.0 [facility] Comment on above: Performed By: #### L 101.9900, L505.7010, L500.2500, L100.0100, L3100.5450, L501.6710 ####[facility] [address] [place], [address] Calculated very low density lipoprotein (VLDL) cholesterol measurementOrdered By: Mikhail Apodacaiter on 09-22-2024 Calculated very low density lipoprotein (VLDL) cholesterol measurement 14 mg/dL 5-40 [facility] Carbon dioxide, total [Moles /volume] in Central venous bloodOrdered By: Mayda Garcia on 09-22-2024 CO2 [Moles/Vol] 21.6 mmol/L 21.0-32.0 [facility] Chloride assayOrdered By: Jia Garcia on 09-22-2024 Chloride [Moles/Vol] 108 mmol/L 98-108 [facility] Eosinophil percentageOrdered By: Mayda Garcia on 09-22-2024 Eosinophils/100 WBC (Bld) 2.3 % 0-5 [facility] Erythrocyte Sed Rateon 09-22 SED RATE 5 mm/hr Normal 0-30 [facility] Comment on above: Performed By: #### L 101.9900, L505.7010, L500.2500, L100.0100, L3100.5450, L501.6710 ####[facility] [address] [place], [address] Erythrocyte distribution wid th ratioOrdered By: Mayda Garcia on 09-22-2024 Erythrocyte distribution width (RBC) [Ratio] 13.9 % 11.6-14.6 [facility] Erythrocyte distribution wid th standard deviationOrdered By: Mayda Garcia on 09-22-2024 Erythrocyte distribution width (RBC) [Ratio] 49.9 fl High 35.1-43.9 [facility] Erythrocyte sedimentation ra teOrdered By: Mayda Garcia on 09-22-2024 ESR (Bld) [Velocity] 5 mm/h 0-30 [facility] Glomerular filtration rate ( GFR) estimation/1.73 sq m using serum, plasma, or whole bOrdered By: Mayda Garcia on 09-22-2024 GFR/1.73 sq M.predicted among non-blacks MDRD (S/P/Bld) [Vol rate/Area] 72 mL/min/{1.73_m2} >60 [facility] Hematocrit Auto (Bld) [Volum e fraction]Ordered By: Mayda Garcia on 09-22-2024 Hematocrit (Bld) [Volume fraction] 33.7 % Low 37-47 [facility] Hemoglobin measurementOrdere d By: Mayda Garcia on 09-22-2024 Hemoglobin (Bld) [Mass/Vol] 11.2 g/dL Low 12.0-15.0 [facility] Immature granulocytes/100 WB C Auto (Bld)Ordered By: Mayda Garcia on 09-22-2024 Immature granulocytes/100 WBC (Bld) 0.500 % 0.0-0.9 [facility] LDL calc ser/plasOrdered By: Mikhail Esposito on 09-22-2024 Cholesterol in LDL [Mass/Vol] 135 mg/dL [facility] Lipid Profileon 09-22-2024 CHOL:HDL 3.58 Normal [facility] Comment on above: Performed By: #### L 500.4100, L500.3400 ####[facility] [address] [place], [place], [address] Cholesterol [Mass/Vol] 206 mg/dL High <=200 [facility] Comment on above: Result Comment: Chol esterol level, Desirable <200 mg/dLBorderline high cholesterol 200-239 mg/dLHigh cholesterol >=240 mg/dLRecommendations of the NCEP Adult Treatment Panel for thefollowing risk-cutoff thresholds for the [place] [facility]. Performed By: #### L 500.4100, L500.3400 ####[facility] [address] [place], [place], [address] Cholesterol in HDL [Mass/Vol] 58 mg/dL Normal [facility] Comment on above: Result Comment: [facility] onal Cholesterol Education Program (NCEP) guidelines:<40 mg/dL: Low HDL-cholesterol (major risk factor for CHD)>= 60 mg/dL: High HDL-cholesterol (negative risk factor forCHD)HDL-cholesterol is affected by a number of factors, e.g.smoking, exercise, hormones, sex and age. Performed By: #### L 500.4100, L500.3400 ####[facility] [address] [place], [address] Cholesterol in LDL [Mass/Vol] 135 mg/dL Normal [facility] Comment on above: Result Comment: Bord ppnxrw=811-792 mg/dL Higher Vyqd=689 mg/dL or greater Performed By: #### L 500.4100, L500.3400 ####[facility] [address] [place], [address] Cholesterol in VLDL [Mass/Vol] 14 mg/dL Normal 5-40 [facility] Comment on above: Performed By: #### L 500.4100, L500.3400 ####[facility] [address] [place], [address] Triglyceride [Mass/Vol] 69 mg/dL Normal [facility] Comment on above: Result Comment: The drugs N-Acetylcysteine and Metamizole may falselydepress this assay.Normal range: <150 mg/dLBorderline High: 150-199 mg/dLHigh: 200-499 mg/dLVery High: >500 mg/dL Performed By: #### L 500.4100, L500.3400 ####[facility] [address] [place], [address] Liver Profileon 09-22-2024 Albumin [Mass/Vol] 3.8 g/dL Normal 3.4-4.8 [facility] Comment on above: Performed By: #### L 500.4100, L500.3400 ####[facility] [address] [place], [address] ALK PHOS 71 U/L Normal 35-104 [facility] Comment on above: Performed By: #### L 500.4100, L500.3400 ####[facility] [address] [place], [address] ALT [Catalytic activity/Vol] 19 U/L Normal <=34 [facility] Comment on above: Performed By: #### L 500.4100, L500.3400 ####[facility] [address] [place], [address] AST [Catalytic activity/Vol] 21 U/L Normal <=31 [facility] Comment on above: Performed By: #### L 500.4100, L500.3400 ####[facility] [address] [place], [address] Bilirubin [Mass/Vol] 0.33 mg/dL Normal 0.00-1.30 [facility] Comment on above: Performed By: #### L 500.4100, L500.3400 ####[facility] [address] [place], [address] Bilirubin.direct [Mass/Vol] 0.15 mg/dL Normal 0.00-0.30 [facility] Comment on above: Performed By: #### L 500.4100, L500.3400 ####[facility] [address] [place], [address] Globulin (S) [Mass/Vol] 2.7 g/dL Normal 2.2-4.2 [facility] Comment on above: Performed By: #### L 500.4100, L500.3400 ####[facility] [address] [place], [address] T PROT 6.5 g/dL Normal 5.9-8.4 [facility] Comment on above: Performed By: #### L 500.4100, L500.3400 ####[facility] [address] [place], [address] MCV (mean corpuscular volume ) determinationOrdered By: Mayda Garcia on 09-22-2024 MCV (RBC) [Entitic vol] 97.7 fL 81-99 [facility] Mean corpuscular hemoglobin (MCH) determinationOrdered By: Mayda Garcia on 09-22-2024 MCH (RBC) [Entitic mass] 32.5 pg High 27.0-32.0 [facility] Monocyte percentageOrdered B y: Mayda Garcia on 09-22-2024 Monocytes/100 WBC (Bld) 8.1 % 0-10 [facility] Neutrophil percentageOrdered By: Jiamichellerosemary Suleimantoyachandana on 09-22-2024 Neutrophils/100 WBC (Bld) 55.3 % 47-70 [facility] No Panel InformationOrdered By: Mikhail Apodacaiter on 09-22-2024 21 U/L <32 [facility] Platelet countOrdered By: Jia michellerosemary Garcia on 09-22-2024 Platelets (Bld) [#/Vol] 155 10*3/uL 150-450 [facility] Potassium measurement (mass/ volume)Ordered By: Mayda Garcia on 09-22-2024 Potassium (Unsp spec) [Mass/Vol] 4.1 mmol/L 3.3-5.1 [facility] RBC Auto (Bld) [#/Vol]Ordere d By: Mayda Garcia on 09-22-2024 RBC (Bld) [#/Vol] 3.45 10*6/uL Low 4.2-5.4 [facility] Rheumatoid Factoron 09-23-19 25 RHEUMATOID FAC < 10.0 Normal <15 [facility] Comment on above: Performed By: #### L 101.9900, L505.7010, L500.2500, L100.0100, L3100.5450, L501.6710 ####[facility] [address] [place], [address] Serum DNA double strand anti body assay (units/volume)Ordered By: Mayda Garcia on 09-22-2024 DNA double strand Ab Qn (S) TNP [facility] Serum Scl-70 antibody assay (units/volume)Ordered By: Mayda Garcia on 09-22-2024 SCL-70 extractable nuclear Ab Qn (S) TNP [facility] Serum creatinine measurement (mass/volume)Ordered By: Mayda Garcia on 09-22-2024 Creatinine [Mass/Vol] 0.86 mg/dL 0.70-1.20 [facility] Serum globulin measurementOr dered By: Mikhail Esposito on 09-22-2024 Globulin (S) [Mass/Vol] 2.7 g/dL 2.2-4.2 [facility] [facility] Serum glucose measurement (m ass/volume)Ordered By: Mayda Garcia on 09-22-2024 Glucose [Mass/Vol] 105 mg/dL High 70-99 [facility] Serum or plasma C reactive p rotein measurement (mass/volume)Ordered By: Mayda Garcia on 09-22-2024 CRP [Mass/Vol] 3.46 mg/L High 0.0-3.0 [facility] Serum or plasma alanine carvalho otransferase (ALT) measurementOrdered By: Mikhail Esposito on 09-22-2024 ALT [Catalytic activity/Vol] 19 U/L <35 [facility] Serum or plasma albumin loretta urement (mass/volume)Ordered By: Mikhail Esposito on 09-22-2024 Albumin [Mass/Vol] 3.8 g/dL 3.4-4.8 [facility] Serum or plasma alkaline idma sphatase measurementOrdered By: Mikhail Esposito on 09-22-2024 ALP [Catalytic activity/Vol] 71 U/L 35-104 [facility] Serum or plasma calcium loretta urement (mass/volume)Ordered By: Mayda Garcia on 09-22-2024 Calcium [Mass/Vol] 8.4 mg/dL 7.6-11.0 [facility] Serum or plasma cholesterol in HDL measurement (mass/volume)Ordered By: Mikhail Esposito on 09-22-2024 Cholesterol in HDL [Mass/Vol] 58 mg/dL >40 [facility] Serum or plasma cholesterol measurement (mass/volume)Ordered By: Mikhail Esposito on 09-22-2024 Cholesterol [Mass/Vol] 206 mg/dL High <201 [facility] Serum or plasma urea nitroge n measurement (mass/volume)Ordered By: Mayda Garcia on 09-22-2024 Urea nitrogen [Mass/Vol] 23 mg/dL High 4- [facility] Serum rheumatoid factor dete ctionOrdered By: Mayda Garcia on 09-22-2024 Rheumatoid factor Ql (S) < 10.0 IU/mL <15 [facility] Sodium levelOrdered By: Noris rosemary Suleimantoyachandana on 09-22-2024 Sodium [Moles/Vol] 140 mmol/L 133-145 [facility] Total proteinOrdered By: Fer Esposito on 09-22-2024 Protein [Mass/Vol] 6.5 g/dL 5.9-8.4 [facility] White blood cell (WBC) count Ordered By: Mayda Garcia on 09-22-2024 WBC (Bld) [#/Vol] 4.3 10*3/uL Low 4.4-11.0 [facility] Internal Medicine Office Vis iton 09-21-2024 Internal Medicine Office Visit Normal [facility] Cardiology Visit Reporton Cardiology Visit Report Normal [facility] 12 Lead EKGon 09-16-2024 12 Lead EKG Normal [facility] Absolute lymphocyte countOrd ered By: Azam Frey on 09-16-2024 Lymphocytes Auto (Unsp spec) [#/Vol] 1.40 10*3/uL 0.83-4.51 [facility] Anion gap in Serum or Plasma Ordered By: Azam Frey on 09-16-2024 Anion gap [Moles/Vol] 10 mmol/L 5-15 [facility] Automated lymphocyte count a s percentage of total leukocytesOrdered By: Azam Frey on 09-16-2024 Lymphocytes/100 WBC Auto (Unsp spec) 33.3 % -41 [facility] BUN/creatinine ratioOrdered By: Azam Frey on 09-16-2024 Urea nitrogen/Creatinine [Mass ratio] 28.6 mg/mg High 10- [facility] Basic Metabolic Profile (BMP )on 09-16-2024 BUN/CRE 28.6 RATIO High 02-20 [facility] Comment on above: Performed By: #### L 500.2500, L503.7505, L100.0100, L501.4021 ####[facility] [address] [place], [address] Calcium [Mass/Vol] 8.7 mg/dL Normal 7.6-11.0 [facility] Comment on above: Performed By: #### L 500.2500, L503.7505, L100.0100, L501.4021 ####[facility] [address] [place], [address] Chloride [Moles/Vol] 109 mmol/L High 98-108 [facility] Comment on above: Performed By: #### L 500.2500, L503.7505, L100.0100, L501.4021 ####[facility] [address] [place], [address] CO2 [Moles/Vol] 23.0 mmol/L Normal 21.0-32.0 [facility] Comment on above: Performed By: #### L 500.2500, L503.7505, L100.0100, L501.4021 ####[facility] [address] [place], [address] Creatinine [Mass/Vol] 0.77 mg/dL Normal 0.70-1.20 [facility] Comment on above: Performed By: #### L 500.2500, L503.7505, L100.0100, L501.4021 ####[facility] [address] [place], [address] GAP 10 Normal 5-15 [facility] Comment on above: Performed By: #### L 500.2500, L503.7505, L100.0100, L501.4021 ####[facility] [address] [place], [address] GFR/1.73 sq M.predicted among non-blacks MDRD (S/P/Bld) [Vol rate/Area] 82 mL/min/{1.73_m2} Normal >60 [facility] Comment on above: Result Comment: mL/m in/1.73m2 CKD-EPI Creatinine Equation (2020) Performed By: #### L 500.2500, L503.7505, L100.0100, L501.4021 ####[facility] [address] [place], [address] Glucose [Mass/Vol] 76 mg/dL Normal 70-99 [facility] Comment on above: Performed By: #### L 500.2500, L503.7505, L100.0100, L501.4021 ####[facility] [address] [place], [address] Potassium [Moles/Vol] 3.7 mmol/L Normal 3.3-5.1 [facility] Comment on above: Performed By: #### L 500.2500, L503.7505, L100.0100, L501.4021 ####[facility] [address] [place], [address] Sodium [Moles/Vol] 142 mmol/L Normal 133-145 [facility] Comment on above: Performed By: #### L 500.2500, L503.7505, L100.0100, L501.4021 ####[facility] [address] [place], [address] Urea nitrogen [Mass/Vol] 22 mg/dL High 4-19 [facility] Comment on above: Performed By: #### L 500.2500, L503.7505, L100.0100, L501.4021 ####[facility] [address] [place], [address] Basophil percentageOrdered B y: Azam Frey on 09-16-2024 Basophils/100 WBC (Bld) 0.2 % 0-1 [facility] CBC W/Diff, Automatedon 09-01 Absolute Lymph 1.40 X10 3/uL Normal 0.83-4.51 [facility] Comment on above: Performed By: #### L 500.2500, L503.7505, L100.0100, L501.4021 ####[facility] [address] [place], [address] Absolute Neut 2.3 X10 3/uL Normal 2.0-7.7 [facility] Comment on above: Performed By: #### L 500.2500, L503.7505, L100.0100, L501.4021 ####[facility] [address] [place], [address] Basophils/100 WBC (Bld) 0.2 % Normal 0-1 [facility] Comment on above: Performed By: #### L 500.2500, L503.7505, L100.0100, L501.4021 ####[facility] [address] [place], [address] Eosinophils/100 WBC (Bld) 2.4 % Normal 0-5 [facility] Comment on above: Performed By: #### L 500.2500, L503.7505, L100.0100, L501.4021 ####[facility] [address] [place], [address] Erythrocyte distribution width (RBC) [Ratio] 13.8 % Normal 11.6-14.6 [facility] Comment on above: Performed By: #### L 500.2500, L503.7505, L100.0100, L501.4021 ####[facility] [address] [place], [address] Hematocrit (Bld) [Volume fraction] 25.8 % Low 37-47 [facility] Comment on above: Performed By: #### L 500.2500, L503.7505, L100.0100, L501.4021 ####[facility] [address] [place], [address] Hemoglobin (Bld) [Mass/Vol] 8.6 g/dL Low 12.0-15.0 [facility] Comment on above: Performed By: #### L 500.2500, L503.7505, L100.0100, L501.4021 ####[facility] [address] [place], [address] IG% 0.500 Normal 0.0-0.9 [facility] Comment on above: Result Comment: IG% - Immature Granulocytes (promyelocytes, myelocytes andmetamyelocytes) > 1% indicates that a LEFT SHIFT is Present. Performed By: #### L 500.2500, L503.7505, L100.0100, L501.4021 ####[facility] [address] [place], [address] Lymphocytes/100 WBC (Bld) 33.3 % Normal 19-41 [facility] Comment on above: Performed By: #### L 500.2500, L503.7505, L100.0100, L501.4021 ####[facility] [address] [place], [address] MCH (RBC) [Entitic mass] 32.5 pg High 27.0-32.0 [facility] Comment on above: Performed By: #### L 500.2500, L503.7505, L100.0100, L501.4021 ####[facility] [address] [place], [address] MCHC (RBC) [Mass/Vol] 33.3 g/dL Normal 32-36 [facility] Comment on above: Performed By: #### L 500.2500, L503.7505, L100.0100, L501.4021 ####[facility] [address] [place], [address] MCV (RBC) [Entitic vol] 97.4 fL Normal 81-99 [facility] Comment on above: Performed By: #### L 500.2500, L503.7505, L100.0100, L501.4021 ####[facility] [address] [place], [address] Monocytes/100 WBC (Bld) 8.6 % Normal 0-10 [facility] Comment on above: Performed By: #### L 500.2500, L503.7505, L100.0100, L501.4021 ####[facility] [address] [place], [address] Neutrophils/100 WBC (Bld) 55.0 % Normal 47-70 [facility] Comment on above: Performed By: #### L 500.2500, L503.7505, L100.0100, L501.4021 ####[facility] [address] [place], [address] Nucleated RBC (Bld) [#/Vol] 0 10*3/uL Normal 0-5 [facility] Comment on above: Performed By: #### L 500.2500, L503.7505, L100.0100, L501.4021 ####[facility] [address] [place], [address] Platelet mean volume (Bld) [Entitic vol] 11.6 fL Normal 6.2-12.0 [facility] Comment on above: Performed By: #### L 500.2500, L503.7505, L100.0100, L501.4021 ####[facility] [address] [place], [address] Platelets (Bld) [#/Vol] 117 10*3/uL Low 150-450 [facility] Comment on above: Performed By: #### L 500.2500, L503.7505, L100.0100, L501.4021 ####[facility] [address] [place], [address] RBC (Bld) [#/Vol] 2.65 10*6/uL Low 4.2-5.4 [facility] Comment on above: Performed By: #### L 500.2500, L503.7505, L100.0100, L501.4021 ####[facility] [address] [place], [address] RDW SD 48.9 fl High 35.1-43.9 [facility] Comment on above: Performed By: #### L 500.2500, L503.7505, L100.0100, L501.4021 ####[facility] [address] [place], [address] WBC (Bld) [#/Vol] 4.2 10*3/uL Low 4.4-11.0 [facility] Comment on above: Performed By: #### L 500.2500, L503.7505, L100.0100, L501.4021 ####[facility] [address] [place], [address] Carbon dioxide, total [Moles /volume] in Central venous bloodOrdered By: Azam Frey on 09-16-2024 CO2 [Moles/Vol] 23.0 mmol/L 21.0-32.0 [facility] Chest 1 View (Portable)on Chest 1 View (Portable) Normal [facility] Chloride assayOrdered By: Hugh Frey on 09-16-2024 Chloride [Moles/Vol] 109 mmol/L High 98-108 [facility] Emergency Department Summary on 09-16-2024 Emergency Department Summary Normal [facility] Eosinophil percentageOrdered By: Azam Frye on 09-16-2024 Eosinophils/100 WBC (Bld) 2.4 % 0-5 [facility] Erythrocyte distribution wid th ratioOrdered By: Azam Frey on 09-16-2024 Erythrocyte distribution width (RBC) [Ratio] 13.8 % 11.6-14.6 [facility] Erythrocyte distribution wid th standard deviationOrdered By: Azam Frey on 09-16-2024 Erythrocyte distribution width (RBC) [Ratio] 48.9 fl High 35.1-43.9 [facility] Glomerular filtration rate ( GFR) estimation/1.73 sq m using serum, plasma, or whole bOrdered By: Azamjerica Frey on 09-16-2024 GFR/1.73 sq M.predicted among non-blacks MDRD (S/P/Bld) [Vol rate/Area] 82 mL/min/{1.73_m2} >60 [facility] Hematocrit Auto (Bld) [Volum e fraction]Ordered By: Azam Frey on 09-16-2024 Hematocrit (Bld) [Volume fraction] 25.8 % Low 37-47 [facility] Hemoglobin measurementOrdere d By: Azamjerica Frey on 09-16-2024 Hemoglobin (Bld) [Mass/Vol] 8.6 g/dL Low 12.0-15.0 [facility] Immature granulocytes/100 WB C Auto (Bld)Ordered By: Azam Frey on 09-16-2024 Immature granulocytes/100 WBC (Bld) 0.500 % 0.0-0.9 [facility] L499.0042on 09-16-2024 Trop T High Sen 7 ng/L Normal <=14 [facility] Comment on above: Result Comment: Hemo lysis present, Results??could be affected.?? Performed By: #### L 499.0042 ####[facility] [address] [place], [address] L499.0043on 09-16-2024 Trop T High Sen Normal <=14 [facility] Comment on above: Result Comment: Canc elled via OM: Order cancelled - Patient discharged Performed By: #### L 499.0043 ####[facility] [address] [place], [address] L501.4021on 09-16-2024 Trop T High Sen 8 ng/L Normal <=14 [facility] Comment on above: Performed By: #### L 500.2500, L503.7505, L100.0100, L501.4021 ####[facility] [address] [place], [address] L503.7505on 09-16-2024 Natriuretic peptide B (Bld) [Mass/Vol] 239 pg/mL Normal <=900 [facility] Comment on above: Result Comment: Hear t Failure Unlikely: < 300 pg/mLHeart Failure Likely< 50 Years: > 450 pg/mL50-75 Years: > 900 pg/mL>75 Years: > 1800 pg/mL Performed By: #### L 500.2500, L503.7505, L100.0100, L501.4021 ####[facility] [address] [place], [place], [address] MCV (mean corpuscular volume ) determinationOrdered By: Azam Frey on 09-16-2024 MCV (RBC) [Entitic vol] 97.4 fL 81-99 [facility] Mean corpuscular hemoglobin (MCH) determinationOrdered By: Azam Frey on 09-16-2024 MCH (RBC) [Entitic mass] 32.5 pg High 27.0-32.0 [facility] Monocyte percentageOrdered B y: Azam Frey on 09-16-2024 Monocytes/100 WBC (Bld) 8.6 % 0-10 [facility] Natriuretic peptide.B prohor thai N-Terminal [Mass/volume] in Serum or PlasmaOrdered By: Azam Frey on 09-16-2024 Natriuretic peptide.B prohormone N-Terminal [Mass/Vol] 239 pg/mL <900 [facility] Neutrophil percentageOrdered By: Azam Frey on 09-16-2024 Neutrophils/100 WBC (Bld) 55.0 % 47-70 [facility] Platelet countOrdered By: Hugh Frey on 09-16-2024 Platelets (Bld) [#/Vol] 117 10*3/uL Low 150-450 [facility] Potassium measurement (mass/ volume)Ordered By: Azam Fery on 09-16-2024 Potassium (Unsp spec) [Mass/Vol] 3.7 mmol/L 3.3-5.1 [facility] RBC Auto (Bld) [#/Vol]Ordere d By: Azam Frey on 09-16-2024 RBC (Bld) [#/Vol] 2.65 10*6/uL Low 4.2-5.4 [facility] Serum creatinine measurement (mass/volume)Ordered By: Azam Frey on 09-16-2024 Creatinine [Mass/Vol] 0.77 mg/dL 0.70-1.20 [facility] Serum glucose measurement (m ass/volume)Ordered By: Azam Frey on 09-16-2024 Glucose [Mass/Vol] 76 mg/dL 70-99 [facility] Serum or plasma calcium loretta urement (mass/volume)Ordered By: Azam Frey on 09-16-2024 Calcium [Mass/Vol] 8.7 mg/dL 7.6-11.0 [facility] Serum or plasma urea nitroge n measurement (mass/volume)Ordered By: Azam Frey on 09-16-2024 Urea nitrogen [Mass/Vol] 22 mg/dL High 4-19 [facility] Sodium levelOrdered By: Azam Frey on 09-16-2024 Sodium [Moles/Vol] 142 mmol/L 133-145 [facility] Stool Occult Blood iFOBon STOB Negative Normal [facility] Comment on above: Performed By: #### M 100.7900 ####[facility] [address] [place], [address] Stool gastrointestinal hemog lobin detection by immunologic methodOrdered By: Azam Frey on 09-16-2024 Lower GI hemoglobin IA Ql (Stl) [facility] Troponin T.cardiac [Mass/vol ume] in Serum or Plasma by High sensitivity methodOrdered By: Azam Frey on 09-16-2024 Troponin T.cardiac High sensitivity method [Mass/Vol] 7 ng/L <14 [facility] Troponin T.cardiac High sensitivity method [Mass/Vol] 8 ng/L <14 [facility] White blood cell (WBC) count Ordered By: Azam Frey on 09-16-2024 WBC (Bld) [#/Vol] 4.2 10*3/uL Low 4.4-11.0 [facility] Internal Medicine Office Vis iton 08-10-2024 Internal Medicine Office Visit Normal [facility] No Panel InformationOrdered By: Mayda Garcia on 08-10-2024 6.4 % High 4.2-6.3 [facility] Chest PA and Lateralon 07-15 Chest PA and Lateral Normal [facility] Emergency Department Summary on 07-15-2024 Emergency Department Summary Normal [facility] 12 Lead EKGon 07-14-2024 12 Lead EKG Normal [facility] Absolute lymphocyte countOrd ered By: Ulisses Chan on 07-14-2024 Lymphocytes Auto (Unsp spec) [#/Vol] 1.82 10*3/uL 0.83-4.51 [facility] Absolute neutrophil countOrd ered By: Ulisses Chan on 07-14-2024 Absolute neutrophil count 2.4 X10^3/uL 2.0-7.7 [facility] Anion gap [Moles/Vol]Ordered By: Ulisses Chan on 07-14-2024 Anion gap in Serum or Plasma 12 09-15 [facility] Anion gap in Serum or Plasma Ordered By: Ulisses Chan on 07-14-2024 Anion gap [Moles/Vol] 12 mmol/L 09-15 [facility] Automated lymphocyte count a s percentage of total leukocytesOrdered By: Ulisses Chan on 07-14-2024 Lymphocytes/100 WBC Auto (Unsp spec) 38.7 % 19-41 [facility] BUN/creatinine ratioOrdered By: Ulisses Chan on 07-14-2024 Urea nitrogen/Creatinine [Mass ratio] 21.2 mg/mg High 10-20 [facility] BUN/creatinine ratio 21.2 RATIO High 10-20 [facility] Basic Metabolic Profile (BMP )on 07-14-2024 BUN/CRE 21.2 RATIO High - [facility] Comment on above: Performed By: #### L 100.0100, L501.4021, L500.2500 ####[facility] [address] [place], [address] Calcium [Mass/Vol] 9.4 mg/dL Normal 7.6-11.0 [facility] Comment on above: Performed By: #### L 100.0100, L501.4021, L500.2500 ####[facility] [address] [place], [address] Chloride [Moles/Vol] 106 mmol/L Normal 98-108 [facility] Comment on above: Performed By: #### L 100.0100, L501.4021, L500.2500 ####[facility] [address] [place], [address] CO2 [Moles/Vol] 23.7 mmol/L Normal 21.0-32.0 [facility] Comment on above: Performed By: #### L 100.0100, L501.4021, L500.2500 ####[facility] [address] [place], [address] Creatinine [Mass/Vol] 0.94 mg/dL Normal 0.70-1.20 [facility] Comment on above: Performed By: #### L 100.0100, L501.4021, L500.2500 ####[facility] [address] [place], [address] ECRCL 52.46 ml/min Normal 50-250 [facility] Comment on above: Performed By: #### L 100.0100, L501.4021, L500.2500 ####[facility] [address] [place], [address] GAP 12 Normal 5-15 [facility] Comment on above: Performed By: #### L 100.0100, L501.4021, L500.2500 ####[facility] [address] [place], [address] GFR/1.73 sq M.predicted among non-blacks MDRD (S/P/Bld) [Vol rate/Area] 65 mL/min/{1.73_m2} Normal >60 [facility] Comment on above: Result Comment: mL/m in/1.73m2 CKD-EPI Creatinine Equation (2020) Performed By: #### L 100.0100, L501.4021, L500.2500 ####[facility] [address] [place], [address] Glucose [Mass/Vol] 141 mg/dL High 70-99 [facility] Comment on above: Performed By: #### L 100.0100, L501.4021, L500.2500 ####[facility] [address] [place], [address] Potassium [Moles/Vol] 3.9 mmol/L Normal 3.3-5.1 [facility] Comment on above: Performed By: #### L 100.0100, L501.4021, L500.2500 ####[facility] [address] [place], [address] Sodium [Moles/Vol] 142 mmol/L Normal 133-145 [facility] Comment on above: Performed By: #### L 100.0100, L501.4021, L500.2500 ####[facility] [address] [place], [address] Urea nitrogen [Mass/Vol] 20 mg/dL High 4-19 [facility] Comment on above: Performed By: #### L 100.0100, L501.4021, L500.2500 ####[facility] [address] [place], [address] Basophil percentageOrdered B y: Ulisses Le on 07-14-2024 Basophils/100 WBC (Bld) 0.2 % 0-1 [facility] Basophil percentage 0.2 % 0-1 [facility] CBC W/Diff, Automatedon 07-02 Absolute Lymph 1.82 X10 3/uL Normal 0.83-4.51 [facility] Comment on above: Performed By: #### L 100.0100, L501.4021, L500.2500 ####[facility] [address] [place], [address] Absolute Neut 2.4 X10 3/uL Normal 2.0-7.7 [facility] Comment on above: Performed By: #### L 100.0100, L501.4021, L500.2500 ####[facility] [address] [place], [address] Basophils/100 WBC (Bld) 0.2 % Normal 0-1 [facility] Comment on above: Performed By: #### L 100.0100, L501.4021, L500.2500 ####[facility] [address] [place], [address] Eosinophils/100 WBC (Bld) 1.7 % Normal 0-5 [facility] Comment on above: Performed By: #### L 100.0100, L501.4021, L500.2500 ####[facility] [address] [place], [address] Erythrocyte distribution width (RBC) [Ratio] 13.2 % Normal 11.6-14.6 [facility] Comment on above: Performed By: #### L 100.0100, L501.4021, L500.2500 ####[facility] [address] [place], [address] Hematocrit (Bld) [Volume fraction] 35.2 % Low 37-47 [facility] Comment on above: Performed By: #### L 100.0100, L501.4021, L500.2500 ####[facility] [address] [place], [address] Hemoglobin (Bld) [Mass/Vol] 11.8 g/dL Low 12.0-15.0 [facility] Comment on above: Performed By: #### L 100.0100, L501.4021, L500.2500 ####[facility] [address] [place], [address] IG% 0.200 Normal 0.0-0.9 [facility] Comment on above: Result Comment: IG% - Immature Granulocytes (promyelocytes, myelocytes andmetamyelocytes) > 1% indicates that a LEFT SHIFT is Present. Performed By: #### L 100.0100, L501.4021, L500.2500 ####[facility] [address] [place], [address] Lymphocytes/100 WBC (Bld) 38.7 % Normal 19-41 [facility] Comment on above: Performed By: #### L 100.0100, L501.4021, L500.2500 ####[facility] [address] [place], [address] MCH (RBC) [Entitic mass] 32.3 pg High 27.0-32.0 [facility] Comment on above: Performed By: #### L 100.0100, L501.4021, L500.2500 ####[facility] [address] [place], [address] MCHC (RBC) [Mass/Vol] 33.5 g/dL Normal 32-36 [facility] Comment on above: Performed By: #### L 100.0100, L501.4021, L500.2500 ####[facility] [address] [place], [address] MCV (RBC) [Entitic vol] 96.4 fL Normal 81-99 [facility] Comment on above: Performed By: #### L 100.0100, L501.4021, L500.2500 ####[facility] [address] [place], [address] Monocytes/100 WBC (Bld) 8.1 % Normal 0-10 [facility] Comment on above: Performed By: #### L 100.0100, L501.4021, L500.2500 ####[facility] [address] [place], [address] Neutrophils/100 WBC (Bld) 51.1 % Normal 47-70 [facility] Comment on above: Performed By: #### L 100.0100, L501.4021, L500.2500 ####[facility] [address] [place], [address] Nucleated RBC (Bld) [#/Vol] 0 10*3/uL Normal 0-5 [facility] Comment on above: Performed By: #### L 100.0100, L501.4021, L500.2500 ####[facility] [address] [place], [address] Platelet mean volume (Bld) [Entitic vol] 10.8 fL Normal 6.2-12.0 [facility] Comment on above: Performed By: #### L 100.0100, L501.4021, L500.2500 ####[facility] [address] [place], [address] Platelets (Bld) [#/Vol] 208 10*3/uL Normal 150-450 [facility] Comment on above: Performed By: #### L 100.0100, L501.4021, L500.2500 ####[facility] [address] [place], [address] RBC (Bld) [#/Vol] 3.65 10*6/uL Low 4.2-5.4 [facility] Comment on above: Performed By: #### L 100.0100, L501.4021, L500.2500 ####[facility] [address] [place], [address] RDW SD 47.2 fl High 35.1-43.9 [facility] Comment on above: Performed By: #### L 100.0100, L501.4021, L500.2500 ####[facility] [address] [place], [address] WBC (Bld) [#/Vol] 4.7 10*3/uL Normal 4.4-11.0 [facility] Comment on above: Performed By: #### L 100.0100, L501.4021, L500.2500 ####[facility] [address] [facility] [place], [address] Calcium [Mass/Vol]Ordered By : Ulisses Chan on 07-14-2024 Serum or plasma calcium measurement (mass/volume) 9.4 mg/dL 7.6-11.0 [facility] Carbon dioxide, total [Moles /volume] in Central venous bloodOrdered By: Ulisses Chan on 07-14-2024 CO2 [Moles/Vol] 23.7 mmol/L 21.0-32.0 [facility] Carbon dioxide, total [Moles/volume] in Central venous blood 23.7 mmol/L 21.0-32.0 [facility] Chest without Contraston Chest without Contrast Normal [facility] [facility] Chloride assayOrdered By: Margarito Chan on 07-14-2024 Chloride [Moles/Vol] 106 mmol/L 98-108 [facility] Chloride assay 106 mmol/L 98-108 [facility] Creatinine [Mass/Vol]Ordered By: Ulisses Chan on 07-14-2024 Serum creatinine measurement (mass/volume) 0.94 mg/dL 0.70-1.20 [facility] Emergency Department Summary on 07-14-2024 Emergency Department Summary Normal [facility] Eosinophil percentageOrdered By: Ulisses Chan on 07-14-2024 Eosinophils/100 WBC (Bld) 1.7 % 0-5 [facility] Eosinophil percentage 1.7 % 0-5 [facility] Erythrocyte distribution wid th (RBC) [Entitic vol]Ordered By: Ulisses Chan on 07-14-2024 Erythrocyte distribution width standard deviation 47.2 fl High 35.1-43.9 [facility] Erythrocyte distribution wid th (RBC) [Ratio]Ordered By: Ulisses Chan on 07-14-2024 Erythrocyte distribution width ratio 13.2 % 11.6-14.6 [facility] Erythrocyte distribution wid th ratioOrdered By: Ulisses Chan on 07-14-2024 Erythrocyte distribution width (RBC) [Ratio] 13.2 % 11.6-14.6 [facility] Erythrocyte distribution wid th standard deviationOrdered By: Ulisses Chan on 07-14-2024 Erythrocyte distribution width (RBC) [Ratio] 47.2 fl High 35.1-43.9 [facility] Estimation of creatinine carl aranceOrdered By: Ulisses Chan on 07-14-2024 Estimation of creatinine clearance 52.46 ml/min 50-250 [facility] GFR/1.73 sq M.predicted leland g non-blacks MDRD (S/P/Bld) [Vol rate/Area]Ordered By: Ulisses Chan on 07-14-2024 Glomerular filtration rate (GFR) estimation/1.73 sq m using serum, plasma, or whole b 65 >60 [facility] Glomerular filtration rate ( GFR) estimation/1.73 sq m using serum, plasma, or whole bOrdered By: Ulisses Chan on 07-14-2024 GFR/1.73 sq M.predicted among non-blacks MDRD (S/P/Bld) [Vol rate/Area] 65 mL/min/{1.73_m2} >60 [facility] Glucose [Mass/Vol]Ordered By : Ulisses Chan on 07-14-2024 Serum glucose measurement (mass/volume) 141 mg/dL High 70-99 [facility] Hematocrit Auto (Bld) [Volum e fraction]Ordered By: Ulisses Chan on 07-14-2024 Hematocrit (Bld) [Volume fraction] 35.2 % Low 37-47 [facility] Automated blood hematocrit (percentage) 35.2 % Low 37-47 [facility] Hemoglobin measurementOrdere d By: Ulisses Chan on 07-14-2024 Hemoglobin (Bld) [Mass/Vol] 11.8 g/dL Low 12.0-15.0 [facility] Hemoglobin measurement 11.8 g/dL Low 12.0-15.0 [facility] Immature granulocytes/100 WB C Auto (Bld)Ordered By: Ulisses Chan on 07-14-2024 Immature granulocytes/100 WBC (Bld) 0.200 % 0.0-0.9 [facility] Automated immature granulocyte percentage 0.200 % 0.0-0.9 [facility] L499.0042on 07-14-2024 Trop T High Sen 11 ng/L Normal <=14 [facility] Comment on above: Performed By: #### L 499.0042 ####[facility] [address] [place], [address] L499.0043on 07-14-2024 Trop T High Sen Normal <=14 [facility] Comment on above: Result Comment: NO S PECIMEN COLLECTED. PATIENT DEPARTED ED Performed By: #### L 499.0043 ####[facility] [address] [place], [address] L501.4021on 07-14-2024 Trop T High Sen 9 ng/L Normal <=14 [facility] Comment on above: Performed By: #### L 100.0100, L501.4021, L500.2500 ####[facility] [address] [place], [address] Lymphocytes Auto (Unsp spec) [#/Vol]Ordered By: Ulisses Chan on 07-14-2024 Absolute lymphocyte count 1.82 X10^3/uL 0.83-4.51 [facility] Lymphocytes/100 WBC Auto (Un sp spec)Ordered By: Ulisses Chan on 07-14-2024 Automated lymphocyte count as percentage of total leukocytes 38.7 % 19-41 [facility] MCV (RBC) [Entitic vol]Order ed By: Ulisses Chan on 07-14-2024 MCV (mean corpuscular volume) determination 96.4 fL 81-99 [facility] MCV (mean corpuscular volume ) determinationOrdered By: Ulisses Chan on 07-14-2024 MCV (RBC) [Entitic vol] 96.4 fL 81-99 [facility] Mean corpuscular hemoglobin (MCH) determinationOrdered By: Ulisses Chan on 07-14-2024 MCH (RBC) [Entitic mass] 32.3 pg High 27.0-32.0 [facility] Mean corpuscular hemoglobin (MCH) determination 32.3 pg High 27.0-32.0 [facility] Mean corpuscular hemoglobin concentration (MCHC) determinationOrdered By: Ulisses Chan on 07-14-2024 Mean corpuscular hemoglobin concentration (MCHC) determination 33.5 g/dL 32-36 [facility] Mean platelet volume determi nationOrdered By: Ulisses Chan on 07-14-2024 Mean platelet volume determination 10.8 fl 6.2-12.0 [facility] Monocyte percentageOrdered B y: Ulisses Chan on 07-14-2024 Monocytes/100 WBC (Bld) 8.1 % 0-10 [facility] Monocyte percentage 8.1 % 0-10 [facility] Neutrophil percentageOrdered By: Ulisses Chan on 07-14-2024 Neutrophils/100 WBC (Bld) 51.1 % 47-70 [facility] Neutrophil percentage 51.1 % 47-70 [facility] No Panel InformationOrdered By: Ulisses Chan on 07-14-2024 9 ng/L <14 [facility] Nucleated red blood cell per centageOrdered By: Ulisses Chan on 07-14-2024 Nucleated red blood cell percentage 0 % 0-5 [facility] Platelet countOrdered By: Margarito Chan on 07-14-2024 Platelets (Bld) [#/Vol] 208 10*3/uL 150-450 [facility] Platelet count 208 K/mm3 150-450 [facility] Potassium (Unsp spec) [Mass/ Vol]Ordered By: Ulisses Chan on 07-14-2024 Potassium measurement (mass/volume) 3.9 mmol/L 3.3-5.1 [facility] Potassium measurement (mass/ volume)Ordered By: Ulisses Chan on 07-14-2024 Potassium (Unsp spec) [Mass/Vol] 3.9 mmol/L 3.3-5.1 [facility] RBC Auto (Bld) [#/Vol]Ordere d By: Ulisses Chan on 07-14-2024 RBC (Bld) [#/Vol] 3.65 10*6/uL Low 4.2-5.4 [facility] Automated blood erythrocyte count 3.65 M/mm3 Low 4.2-5.4 [facility] Serum creatinine measurement (mass/volume)Ordered By: Ulisses Chan on 07-14-2024 Creatinine [Mass/Vol] 0.94 mg/dL 0.70-1.20 [facility] Serum glucose measurement (m ass/volume)Ordered By: Ulisses Chan on 07-14-2024 Glucose [Mass/Vol] 141 mg/dL High 70-99 [facility] Serum or plasma calcium loretta urement (mass/volume)Ordered By: Ulisses Chan on 07-14-2024 Calcium [Mass/Vol] 9.4 mg/dL 7.6-11.0 [facility] Serum or plasma urea nitroge n measurement (mass/volume)Ordered By: Ulisses Chan on 07-14-2024 Urea nitrogen [Mass/Vol] 20 mg/dL High 08-20 [facility] Sodium levelOrdered By: Ulisses Chan on 07-14-2024 Sodium [Moles/Vol] 142 mmol/L 133-145 [facility] Sodium level 142 mmol/L 133-145 [facility] Troponin T.cardiac High sens itivity method [Mass/Vol]Ordered By: Ulisses Chan on 07-14-2024 Troponin T.cardiac [Mass/volume] in Serum or Plasma by High sensitivity method 11 ng/L <14 [facility] Troponin T.cardiac [Mass/vol ume] in Serum or Plasma by High sensitivity methodOrdered By: Ulisses Chan on 07-14-2024 Troponin T.cardiac High sensitivity method [Mass/Vol] 11 ng/L <14 [facility] Urea nitrogen [Mass/Vol]Orde red By: Ulisses Chan on 07-14-2024 Serum or plasma urea nitrogen measurement (mass/volume) 20 mg/dL High 08-20 [facility] White blood cell (WBC) count Ordered By: Ulisses Chan on 07-14-2024 WBC (Bld) [#/Vol] 4.7 10*3/uL 4.4-11.0 [facility] White blood cell (WBC) count 4.7 K/mm3 4.4-11.0 [facility] Office Visit Reporton 2024 Office Visit Report Normal [facility] ALP [Catalytic activity/Vol] Ordered By: Yee Rowland on 06-22-2024 Serum or plasma alkaline phosphatase measurement 60 U/L 45-117 [facility] ALT [Catalytic activity/Vol] Ordered By: Yee Rowland on 06-22-2024 Serum or plasma alanine aminotransferase (ALT) measurement 22 U/L 13-56 [facility] Absolute lymphocyte countOrd ered By: Yeejazlyn Rowland on 06-22-2024 Lymphocytes Auto (Unsp spec) [#/Vol] 1.44 10*3/uL 0.83-4.51 [facility] Absolute neutrophil countOrd ered By: Yee Rowland on 06-22-2024 Absolute neutrophil count 2.0 X10^3/uL 2.0-7.7 [facility] Albumin [Mass/Vol]Ordered By : Yee Rowland on 06-22-2024 Serum or plasma albumin measurement (mass/volume) 3.1 g/dL Low 3.2-5.0 [facility] Albumin to globulin ratioOrd ered By: Yeejazlyn Rowland on 06-22-2024 Albumin to globulin ratio 0.9 RATIO 0.9-2.4 [facility] Automated lymphocyte count a s percentage of total leukocytesOrdered By: Yee Rowland on 06-22-2024 Lymphocytes/100 WBC Auto (Unsp spec) 37.7 % 19-41 [facility] Basophil percentageOrdered B y: Yee Rowland on 06-22-2024 Basophils/100 WBC (Bld) 0.5 % 0-1 [facility] Basophil percentage 0.5 % 0-1 [facility] Bilirubin, totalOrdered By: Yee Rowland on 06-22-2024 Bilirubin [Mass/Vol] 0.40 mg/dL 0.20-1.00 [facility] Bilirubin, total 0.40 mg/dL 0.20-1.00 [facility] Blood urea nitrogen (BUN)/cr eatinine ratioOrdered By: Yee Rowland on 06-22-2024 Blood urea nitrogen (BUN)/creatinine ratio 26.2 RATIO High 10-20 [facility] CBC W/Diff, Automatedon 06-04 Absolute Lymph 1.44 X10 3/uL Normal 0.83-4.51 [facility] Comment on above: Performed By: #### L 500.4050, L100.0100 ####[facility] [address] [place], [address] Absolute Neut 2.0 X10 3/uL Normal 2.0-7.7 [facility] Comment on above: Performed By: #### L 500.4050, L100.0100 ####[facility] [address] [place], [address] Basophils/100 WBC (Bld) 0.5 % Normal 0-1 [facility] Comment on above: Performed By: #### L 500.4050, L100.0100 ####[facility] [address] [place], [address] Eosinophils/100 WBC (Bld) 2.6 % Normal 0-5 [facility] Comment on above: Performed By: #### L 500.4050, L100.0100 ####[facility] [address] [place], [address] Erythrocyte distribution width (RBC) [Ratio] 13.4 % Normal 11.6-14.6 [facility] Comment on above: Performed By: #### L 500.4050, L100.0100 ####[facility] [address] [place], [address] Hematocrit (Bld) [Volume fraction] 34.8 % Low 37-47 [facility] Comment on above: Performed By: #### L 500.4050, L100.0100 ####[facility] [address] [place], [address] Hemoglobin (Bld) [Mass/Vol] 11.5 g/dL Low 12.0-15.0 [facility] Comment on above: Performed By: #### L 500.4050, L100.0100 ####[facility] [address] [place], [address] IG% 0.300 Normal 0.0-0.9 [facility] Comment on above: Result Comment: IG% - Immature Granulocytes (promyelocytes, myelocytes andmetamyelocytes) > 1% indicates that a LEFT SHIFT is Present. Performed By: #### L 500.4050, L100.0100 ####[facility] [address] [place], [address] Lymphocytes/100 WBC (Bld) 37.7 % Normal 19-41 [facility] Comment on above: Performed By: #### L 500.4050, L100.0100 ####[facility] [address] [place], [address] MCH (RBC) [Entitic mass] 32.3 pg High 27.0-32.0 [facility] Comment on above: Performed By: #### L 500.4050, L100.0100 ####[facility] [address] [place], [address] MCHC (RBC) [Mass/Vol] 33.0 g/dL Normal 32-36 [facility] Comment on above: Performed By: #### L 500.4050, L100.0100 ####[facility] [address] [place], [address] MCV (RBC) [Entitic vol] 97.8 fL Normal 81-99 [facility] Comment on above: Performed By: #### L 500.4050, L100.0100 ####[facility] [address] [place], [address] Monocytes/100 WBC (Bld) 7.1 % Normal 0-10 [facility] Comment on above: Performed By: #### L 500.4050, L100.0100 ####[facility] [address] [place], [address] Neutrophils/100 WBC (Bld) 51.8 % Normal 47-70 [facility] Comment on above: Performed By: #### L 500.4050, L100.0100 ####[facility] [address] [place], [address] Nucleated RBC (Bld) [#/Vol] 0 10*3/uL Normal 0-5 [facility] Comment on above: Performed By: #### L 500.4050, L100.0100 ####[facility] [address] [place], [address] Platelet mean volume (Bld) [Entitic vol] 11.1 fL Normal 6.2-12.0 [facility] Comment on above: Performed By: #### L 500.4050, L100.0100 ####[facility] [address] [place], [address] Platelets (Bld) [#/Vol] 192 10*3/uL Normal 150-450 [facility] Comment on above: Performed By: #### L 500.4050, L100.0100 ####[facility] [address] [place], [address] RBC (Bld) [#/Vol] 3.56 10*6/uL Low 4.2-5.4 [facility] Comment on above: Performed By: #### L 500.4050, L100.0100 ####[facility] [address] [place], [address] RDW SD 47.8 fl High 35.1-43.9 [facility] Comment on above: Performed By: #### L 500.4050, L100.0100 ####[facility] [address] [place], [address] WBC (Bld) [#/Vol] 3.8 10*3/uL Low 4.4-11.0 [facility] Comment on above: Performed By: #### L 500.4050, L100.0100 ####[facility] [address] [place], [address] Calcium [Mass/Vol]Ordered By : Yee Rowland on 06-22-2024 Serum or plasma calcium measurement (mass/volume) 8.7 mg/dL 8.5-10.1 [facility] Carbon dioxide measurementOr dered By: Yee Rowland on 06-22-2024 CO2 [Moles/Vol] 25.0 mmol/L 21.0-32.0 [facility] Carbon dioxide measurement 25.0 mmol/L 21.0-32.0 [facility] Chloride measurementOrdered By: Yee Rowland on 06-22-2024 Chloride [Moles/Vol] 110 mmol/L High 98-107 [facility] Chloride measurement 110 mmol/L High 98-107 [facility] Comprehensive Metabolic Prof ilon 06-22-2024 Albumin [Mass/Vol] 3.1 g/dL Low 3.2-5.0 [facility] Comment on above: Performed By: #### L 500.4050, L100.0100 ####[facility] [address] [place], [address] Albumin/Globulin [Mass ratio] 0.9 {ratio} Normal 0.9-2.4 [facility] Comment on above: Performed By: #### L 500.4050, L100.0100 ####[facility] [address] [place], [address] ALK P 60 U/L Normal 45-117 [facility] Comment on above: Performed By: #### L 500.4050, L100.0100 ####[facility] [address] [place], [address] ALT [Catalytic activity/Vol] 22 U/L Normal 13-56 [facility] Comment on above: Performed By: #### L 500.4050, L100.0100 ####[facility] [address] [place], [address] AST [Catalytic activity/Vol] 18 U/L Normal 15-37 [facility] Comment on above: Performed By: #### L 500.4050, L100.0100 ####[facility] [address] [place], [address] Bilirubin [Mass/Vol] 0.40 mg/dL Normal 0.20-1.00 [facility] Comment on above: Result Comment: For patients on eltrombopag therapy, use of Dimension [place] TBIL is not recommended. Performed By: #### L 500.4050, L100.0100 ####[facility] [address] [place], [address] BUN/CRE 26.2 RATIO High 10-20 [facility] Comment on above: Performed By: #### L 500.4050, L100.0100 ####[facility] [address] [place], [address] CA,Total 8.7 mg/dL Normal 8.5-10.1 [facility] Comment on above: Performed By: #### L 500.4050, L100.0100 ####[facility] [address] [place], [address] Chloride [Moles/Vol] 110 mmol/L High 98-107 [facility] Comment on above: Performed By: #### L 500.4050, L100.0100 ####[facility] [address] [place], [address] CO2 [Moles/Vol] 25.0 mmol/L Normal 21.0-32.0 [facility] Comment on above: Performed By: #### L 500.4050, L100.0100 ####[facility] [address] [place], [address] Creatinine [Mass/Vol] 0.88 mg/dL Normal 0.55-1.02 [facility] Comment on above: Result Comment: The validity of the calculated GFR GFRAA in patients over70 years has not been determined. Clinical correlation isessential. Performed By: #### L 500.4050, L100.0100 ####[facility] [address] [place], [address] EST GFR - AA 82 mL/min Normal >60 [facility] Comment on above: Result Comment: Afri can [place] GFR Calc Performed By: #### L 500.4050, L100.0100 ####[facility] [address] [place], [address] GAP 6 Normal 5-15 [facility] Comment on above: Performed By: #### L 500.4050, L100.0100 ####[facility] [address] [place], [address] GFR/1.73 sq M.predicted among non-blacks MDRD (S/P/Bld) [Vol rate/Area] 68 mL/min/{1.73_m2} Normal >60 [facility] Comment on above: Result Comment: Non- GFR Calc Performed By: #### L 500.4050, L100.0100 ####[facility] [address] [place], [address] Globulin (S) [Mass/Vol] 3.5 g/dL Normal 2.2-4.2 [facility] Comment on above: Performed By: #### L 500.4050, L100.0100 ####[facility] [address] [place], [address] Glucose [Mass/Vol] 103 mg/dL Normal 74-106 [facility] Comment on above: Result Comment: Fast ing Glucose result from 100 to 125 mg/dLsuggests IMPAIRED HOMEOSTASIS per A.D.A. criteria. Performed By: #### L 500.4050, L100.0100 ####[facility] [address] [place], [address] Potassium [Moles/Vol] 4.1 mmol/L Normal 3.5-5.1 [facility] Comment on above: Performed By: #### L 500.4050, L100.0100 ####[facility] [address] [place], [address] Sodium [Moles/Vol] 141 mmol/L Normal 136-145 [facility] Comment on above: Performed By: #### L 500.4050, L100.0100 ####[facility] [address] [place], [address] T PROT 6.6 g/dL Normal 6.4-8.2 [facility] Comment on above: Performed By: #### L 500.4050, L100.0100 ####[facility] [address] [place], [address] Urea nitrogen [Mass/Vol] 23 mg/dL High 7-18 [facility] Comment on above: Performed By: #### L 500.4050, L100.0100 ####[facility] [address] [place], [address] Creatinine [Mass/Vol]Ordered By: Yee Rowland on 06-22-2024 Serum or plasma creatinine measurement (mass/volume) 0.88 mg/dL 0.55-1.02 [facility] Eosinophil percentageOrdered By: Yee Rowland on 06-22-2024 Eosinophils/100 WBC (Bld) 2.6 % 0-5 [facility] Eosinophil percentage 2.6 % 0-5 [facility] Erythrocyte distribution wid th (RBC) [Entitic vol]Ordered By: Yee Rowland on 06-22-2024 Erythrocyte distribution width standard deviation 47.8 fl High 35.1-43.9 [facility] Erythrocyte distribution wid th (RBC) [Ratio]Ordered By: Yee Rowland on 06-22-2024 Erythrocyte distribution width ratio 13.4 % 11.6-14.6 [facility] Erythrocyte distribution wid th ratioOrdered By: Yee Rowland on 06-22-2024 Erythrocyte distribution width (RBC) [Ratio] 13.4 % 11.6-14.6 [facility] Erythrocyte distribution wid th standard deviationOrdered By: Yee Rowland on 06-22-2024 Erythrocyte distribution width (RBC) [Ratio] 47.8 fl High 35.1-43.9 [facility] Estimated glomerular filtrat ion rate (GFR) AmericanOrdered By: Yee Rowland on 06-22-2024 Estimated glomerular filtration rate (GFR) 82 mL/min >60 [facility] Glomerular filtration rate ( GFR) estimationOrdered By: Yee Rowland on 06-22-2024 GFR/1.73 sq M.predicted among non-blacks MDRD (S/P/Bld) [Vol rate/Area] 68 mL/min/{1.73_m2} >60 [facility] Glomerular filtration rate (GFR) estimation 68 mL/min >60 [facility] Glucose measurementOrdered B y: Yee Rowland on 06-22-2024 Glucose [Mass/Vol] 103 mg/dL 74-106 [facility] Glucose measurement 103 mg/dL 74-106 [facility] Hematocrit Auto (Bld) [Volum e fraction]Ordered By: Yee Rowland on 06-22-2024 Hematocrit (Bld) [Volume fraction] 34.8 % Low 37-47 [facility] Automated blood hematocrit (percentage) 34.8 % Low 37-47 [facility] Hemoglobin measurementOrdere d By: Yee Rowland on 06-22-2024 Hemoglobin (Bld) [Mass/Vol] 11.5 g/dL Low 12.0-15.0 [facility] Hemoglobin measurement 11.5 g/dL Low 12.0-15.0 [facility] Immature granulocytes/100 WB C Auto (Bld)Ordered By: Yee Rowland on 06-22-2024 Immature granulocytes/100 WBC (Bld) 0.300 % 0.0-0.9 [facility] Automated immature granulocyte percentage 0.300 % 0.0-0.9 [facility] Lymphocytes Auto (Unsp spec) [#/Vol]Ordered By: Yee Rowland on 06-22-2024 Absolute lymphocyte count 1.44 X10^3/uL 0.83-4.51 [facility] Lymphocytes/100 WBC Auto (Un sp spec)Ordered By: Yee Rowland on 06-22-2024 Automated lymphocyte count as percentage of total leukocytes 37.7 % 19-41 [facility] MCV (RBC) [Entitic vol]Order ed By: Yee Rowland on 06-22-2024 MCV (mean corpuscular volume) determination 97.8 fL 81-99 [facility] MCV (mean corpuscular volume ) determinationOrdered By: Yee Rowland on 06-22-2024 MCV (RBC) [Entitic vol] 97.8 fL 81-99 [facility] Mean corpuscular hemoglobin (MCH) determinationOrdered By: Yee Rowland on 06-22-2024 MCH (RBC) [Entitic mass] 32.3 pg High 27.0-32.0 [facility] Mean corpuscular hemoglobin (MCH) determination 32.3 pg High 27.0-32.0 [facility] Mean corpuscular hemoglobin concentration (MCHC) determinationOrdered By: Yee Rowland on 06-22-2024 Mean corpuscular hemoglobin concentration (MCHC) determination 33.0 g/dL 32-36 [facility] Mean platelet volume determi nationOrdered By: Yee Rowland on 06-22-2024 Mean platelet volume determination 11.1 fl 6.2-12.0 [facility] Monocyte percentageOrdered B y: Yee Rowland on 06-22-2024 Monocytes/100 WBC (Bld) 7.1 % 0-10 [facility] Monocyte percentage 7.1 % 0-10 [facility] Neutrophil percentageOrdered By: Yee Rowland on 06-22-2024 Neutrophils/100 WBC (Bld) 51.8 % 47-70 [facility] Neutrophil percentage 51.8 % 47-70 [facility] No Panel InformationOrdered By: Yee Rowland on 06-22-2024 18 U/L 15-37 [facility] Nucleated red blood cell per centageOrdered By: Yee Rowland on 06-22-2024 Nucleated red blood cell percentage 0 % 0-5 [facility] Platelet countOrdered By: Rene Rowland on 06-22-2024 Platelets (Bld) [#/Vol] 192 10*3/uL 150-450 [facility] Platelet count 192 K/mm3 150-450 [facility] Potassium measurementOrdered By: Yee Rowland on 06-22-2024 Potassium [Moles/Vol] 4.1 mmol/L 3.5-5.1 [facility] Potassium measurement 4.1 mmol/L 3.5-5.1 [facility] RBC Auto (Bld) [#/Vol]Ordere d By: Yee Rowland on 06-22-2024 RBC (Bld) [#/Vol] 3.56 10*6/uL Low 4.2-5.4 [facility] Automated blood erythrocyte count 3.56 M/mm3 Low 4.2-5.4 [facility] Serum anion gap measurementO rdered By: Yee Rowland on 06-22-2024 Serum anion gap measurement 6 5-15 [facility] Serum globulin measurementOr dered By: Yee Rowland on 06-22-2024 Globulin (S) [Mass/Vol] 3.5 g/dL 2.2-4.2 [facility] Serum globulin measurement 3.5 g/dL 2.2-4.2 [facility] Serum or plasma alanine carvalho otransferase (ALT) measurementOrdered By: Yee Rowland on 06-22-2024 ALT [Catalytic activity/Vol] 22 U/L 13-56 [facility] Serum or plasma albumin loretta urement (mass/volume)Ordered By: Yee Rowland on 06-22-2024 Albumin [Mass/Vol] 3.1 g/dL Low 3.2-5.0 [facility] Serum or plasma alkaline dima sphatase measurementOrdered By: Yee Rowland on 06-22-2024 ALP [Catalytic activity/Vol] 60 U/L 45-117 [facility] Serum or plasma calcium loretta urement (mass/volume)Ordered By: Yee Rowland on 06-22-2024 Calcium [Mass/Vol] 8.7 mg/dL 8.5-10.1 [facility] Serum or plasma creatinine m easurement (mass/volume)Ordered By: Yee Rowland on 06-22-2024 Creatinine [Mass/Vol] 0.88 mg/dL 0.55-1.02 [facility] Serum or plasma urea nitroge n measurement (mass/volume)Ordered By: Yee Rowland on 06-22-2024 Urea nitrogen [Mass/Vol] 23 mg/dL High 11-18 [facility] Sodium levelOrdered By: Karl Rowland on 06-22-2024 Sodium [Moles/Vol] 141 mmol/L 136-145 [facility] Sodium level 141 mmol/L 136-145 [facility] Total proteinOrdered By: Prasad Rowland on 06-22-2024 Protein [Mass/Vol] 6.6 g/dL 6.4-8.2 [facility] Total protein 6.6 g/dL 6.4-8.2 [facility] Urea nitrogen [Mass/Vol]Orde red By: Yee Rowland on 06-22-2024 Serum or plasma urea nitrogen measurement (mass/volume) 23 mg/dL High 11-18 [facility] White blood cell (WBC) count Ordered By: Yee Rowland on 06-22-2024 WBC (Bld) [#/Vol] 3.8 10*3/uL Low 4.4-11.0 [facility] White blood cell (WBC) count 3.8 K/mm3 Low 4.4-11.0 [facility] SCRN MAMM (CAD)W/PAUL BILATo n 06-07-2024 SCRN MAMM (CAD)W/PAUL BILAT Normal [facility] Internal Medicine Office Vis iton 05-20-2024 Internal Medicine Office Visit Normal [facility] No Panel Informationon 05-20 6.5 % High 4.2-6.3 [facility] ALP [Catalytic activity/Vol] Ordered By: Pepe Ruiz on 05-16-2024 Serum or plasma alkaline phosphatase measurement 66 U/L 45-117 [facility] ALT [Catalytic activity/Vol] Ordered By: Pepe Ruiz on 05-16-2024 Serum or plasma alanine aminotransferase (ALT) measurement 22 U/L 13-56 [facility] Albumin [Mass/Vol]Ordered By : Pepe Ruiz on 05-16-2024 Serum or plasma albumin measurement (mass/volume) 3.1 g/dL Low 3.2-5.0 [facility] Albumin to globulin ratioOrd ered By: Pepe Ruiz on 05-16-2024 Albumin to globulin ratio 0.9 RATIO 0.9-2.4 [facility] Ammoniaon 05-16-2024 Ammonia (P) [Moles/Vol] 39.0 umol/L High 11-32 [facility] Comment on above: Performed By: #### L 500.4050, L501.8100, L100.0500, L503.5510 ####[facility] [address] [place], [address] Bilirubin, totalOrdered By: Pepe Ruiz on 05-16-2024 Bilirubin, total 0.30 mg/dL 0.20-1.00 [facility] Blood urea nitrogen (BUN)/cr eatinine ratioOrdered By: Pepe Ruiz on 05-16-2024 Blood urea nitrogen (BUN)/creatinine ratio 23.7 RATIO High 10-20 [facility] CBC-Complete Blood Cnt No Di ffon 05-16-2024 Erythrocyte distribution width (RBC) [Ratio] 13.5 % Normal 11.6-14.6 [facility] Comment on above: Performed By: #### L 500.4050, L501.8100, L100.0500, L503.5510 ####[facility] [address] [place], [address] Hematocrit (Bld) [Volume fraction] 35.5 % Low 37-47 [facility] Comment on above: Performed By: #### L 500.4050, L501.8100, L100.0500, L503.5510 ####[facility] [address] [place], [address] Hemoglobin (Bld) [Mass/Vol] 11.4 g/dL Low 12.0-15.0 [facility] Comment on above: Performed By: #### L 500.4050, L501.8100, L100.0500, L503.5510 ####[facility] [address] [place], [address] MCH (RBC) [Entitic mass] 31.6 pg Normal 27.0-32.0 [facility] Comment on above: Performed By: #### L 500.4050, L501.8100, L100.0500, L503.5510 ####[facility] [address] [place], [address] MCHC (RBC) [Mass/Vol] 32.1 g/dL Normal 32-36 [facility] Comment on above: Performed By: #### L 500.4050, L501.8100, L100.0500, L503.5510 ####[facility] [address] [place], [address] MCV (RBC) [Entitic vol] 98.3 fL Normal 81-99 [facility] Comment on above: Performed By: #### L 500.4050, L501.8100, L100.0500, L503.5510 ####[facility] [address] [place], [address] Platelet mean volume (Bld) [Entitic vol] 11.6 fL Normal 6.2-12.0 [facility] Comment on above: Performed By: #### L 500.4050, L501.8100, L100.0500, L503.5510 ####[facility] [address] [place], [address] Platelets (Bld) [#/Vol] 173 10*3/uL Normal 150-450 [facility] Comment on above: Performed By: #### L 500.4050, L501.8100, L100.0500, L503.5510 ####[facility] [address] [place], [address] RBC (Bld) [#/Vol] 3.61 10*6/uL Low 4.2-5.4 [facility] Comment on above: Performed By: #### L 500.4050, L501.8100, L100.0500, L503.5510 ####[facility] [address] [place], [address] RDW SD 49.5 fl High 35.1-43.9 [facility] Comment on above: Performed By: #### L 500.4050, L501.8100, L100.0500, L503.5510 ####[facility] [address] [place], [address] WBC (Bld) [#/Vol] 3.5 10*3/uL Low 4.4-11.0 [facility] Comment on above: Performed By: #### L 500.4050, L501.8100, L100.0500, L503.5510 ####[facility] [address] [place], [address] Calcium [Mass/Vol]Ordered By : Pepe Ruiz on 05-16-2024 Serum or plasma calcium measurement (mass/volume) 8.7 mg/dL 8.5-10.1 [facility] Carbon dioxide measurementOr dered By: Pepe Ruiz on 05-16-2024 Carbon dioxide measurement 26.0 mmol/L 21.0-32.0 [facility] Chloride measurementOrdered By: Pepe Ruiz on 05-16-2024 Chloride measurement 111 mmol/L High 98-107 [facility] Comprehensive Metabolic Prof ilon 05-16-2024 Albumin [Mass/Vol] 3.1 g/dL Low 3.2-5.0 [facility] Comment on above: Performed By: #### L 500.4050, L501.8100, L100.0500, L503.5510 ####[facility] [address] [place], [address] Albumin/Globulin [Mass ratio] 0.9 {ratio} Normal 0.9-2.4 [facility] Comment on above: Performed By: #### L 500.4050, L501.8100, L100.0500, L503.5510 ####[facility] [address] [place], [address] ALK P 66 U/L Normal 45-117 [facility] Comment on above: Performed By: #### L 500.4050, L501.8100, L100.0500, L503.5510 ####[facility] [address] [place], [address] ALT [Catalytic activity/Vol] 22 U/L Normal 13-56 [facility] Comment on above: Performed By: #### L 500.4050, L501.8100, L100.0500, L503.5510 ####[facility] [address] [place], [address] AST [Catalytic activity/Vol] 15 U/L Normal 15-37 [facility] Comment on above: Performed By: #### L 500.4050, L501.8100, L100.0500, L503.5510 ####[facility] [address] [place], [address] Bilirubin [Mass/Vol] 0.30 mg/dL Normal 0.20-1.00 [facility] Comment on above: Result Comment: For patients on eltrombopag therapy, use of Dimension [place] TBIL is not recommended. Performed By: #### L 500.4050, L501.8100, L100.0500, L503.5510 ####[facility] [address] [place], [address] BUN/CRE 23.7 RATIO High 10-20 [facility] Comment on above: Performed By: #### L 500.4050, L501.8100, L100.0500, L503.5510 ####[facility] [address] [place], [address] CA,Total 8.7 mg/dL Normal 8.5-10.1 [facility] Comment on above: Performed By: #### L 500.4050, L501.8100, L100.0500, L503.5510 ####[facility] [address] [place], [address] Chloride [Moles/Vol] 111 mmol/L High 98-107 [facility] Comment on above: Performed By: #### L 500.4050, L501.8100, L100.0500, L503.5510 ####[facility] [address] [place], [address] CO2 [Moles/Vol] 26.0 mmol/L Normal 21.0-32.0 [facility] Comment on above: Performed By: #### L 500.4050, L501.8100, L100.0500, L503.5510 ####[facility] [address] [place], [address] Creatinine [Mass/Vol] 0.93 mg/dL Normal 0.55-1.02 [facility] Comment on above: Result Comment: The validity of the calculated GFR GFRAA in patients over70 years has not been determined. Clinical correlation isessential. Performed By: #### L 500.4050, L501.8100, L100.0500, L503.5510 ####[facility] [address] [place], [address] EST GFR - AA 76 mL/min Normal >60 [facility] Comment on above: Result Comment: Afri can Finnish GFR Calc Performed By: #### L 500.4050, L501.8100, L100.0500, L503.5510 ####[facility] [address] [place], [address] GAP 3 Low 5-15 [facility] Comment on above: Performed By: #### L 500.4050, L501.8100, L100.0500, L503.5510 ####[facility] [address] [place], [address] GFR/1.73 sq M.predicted among non-blacks MDRD (S/P/Bld) [Vol rate/Area] 63 mL/min/{1.73_m2} Normal >60 [facility] Comment on above: Result Comment: Non- GFR Calc Performed By: #### L 500.4050, L501.8100, L100.0500, L503.5510 ####[facility] [address] [place], [address] Globulin (S) [Mass/Vol] 3.6 g/dL Normal 2.2-4.2 [facility] Comment on above: Performed By: #### L 500.4050, L501.8100, L100.0500, L503.5510 ####[facility] [address] [place], [address] Glucose [Mass/Vol] 122 mg/dL High 74-106 [facility] Comment on above: Result Comment: Fast ing Glucose result from 100 to 125 mg/dLsuggests IMPAIRED HOMEOSTASIS per A.D.A. criteria. Performed By: #### L 500.4050, L501.8100, L100.0500, L503.5510 ####[facility] [address] [place], [address] Potassium [Moles/Vol] 4.3 mmol/L Normal 3.5-5.1 [facility] Comment on above: Performed By: #### L 500.4050, L501.8100, L100.0500, L503.5510 ####[facility] [address] [place], [address] Sodium [Moles/Vol] 140 mmol/L Normal 136-145 [facility] Comment on above: Performed By: #### L 500.4050, L501.8100, L100.0500, L503.5510 ####[facility] [address] [place], [address] T PROT 6.7 g/dL Normal 6.4-8.2 [facility] Comment on above: Performed By: #### L 500.4050, L501.8100, L100.0500, L503.5510 ####[facility] [address] [place], [address] Urea nitrogen [Mass/Vol] 22 mg/dL High 7-18 [facility] Comment on above: Performed By: #### L 500.4050, L501.8100, L100.0500, L503.5510 ####[facility] [address] [place], [address] Creatinine [Mass/Vol]Ordered By: Pepe Ruiz on 05-16-2024 Serum or plasma creatinine measurement (mass/volume) 0.93 mg/dL 0.55-1.02 [facility] Erythrocyte distribution wid th (RBC) [Entitic vol]Ordered By: Pepe Ruiz on 05-16-2024 Erythrocyte distribution width standard deviation 49.5 fl High 35.1-43.9 [facility] Erythrocyte distribution wid th (RBC) [Ratio]Ordered By: Pepe Ruiz on 05-16-2024 Erythrocyte distribution width ratio 13.5 % 11.6-14.6 [facility] Estimated glomerular filtrat ion rate (GFR) AmericanOrdered By: Pepe Ruiz on 05-16-2024 Estimated glomerular filtration rate (GFR) 76 mL/min >60 [facility] Glomerular filtration rate ( GFR) estimationOrdered By: Pepe Ruiz on 05-16-2024 Glomerular filtration rate (GFR) estimation 63 mL/min >60 [facility] Glucose measurementOrdered B y: Pepe Ruiz on 05-16-2024 Glucose measurement 122 mg/dL High 74-106 [facility] Hematocrit Auto (Bld) [Volum e fraction]Ordered By: Pepe Ruiz on 05-16-2024 Automated blood hematocrit (percentage) 35.5 % Low 37-47 [facility] Hemoglobin measurementOrdere d By: Pepe Ruiz on 05-16-2024 Hemoglobin measurement 11.4 g/dL Low 12.0-15.0 [facility] MCV (RBC) [Entitic vol]Order ed By: Pepe Ruiz on 05-16-2024 MCV (mean corpuscular volume) determination 98.3 fL 81-99 [facility] Mean corpuscular hemoglobin (MCH) determinationOrdered By: Pepe Ruiz on 05-16-2024 Mean corpuscular hemoglobin (MCH) determination 31.6 pg 27.0-32.0 [facility] Mean corpuscular hemoglobin concentration (MCHC) determinationOrdered By: Pepe Ruiz on 05-16-2024 Mean corpuscular hemoglobin concentration (MCHC) determination 32.1 g/dL 32-36 [facility] Mean platelet volume determi nationOrdered By: Pepe Ruiz on 05-16-2024 Mean platelet volume determination 11.6 fl 6.2-12.0 [facility] Neurology Visit Reporton Neurology Visit Report Normal [facility] No Panel InformationOrdered By: Pepe Ruiz on 05-16-2024 15 U/L 15-37 [facility] Platelet countOrdered By: Ra cheyanne Ruiz on 05-16-2024 Platelet count 173 K/mm3 150-450 [facility] Potassium measurementOrdered By: Pepe Ruiz on 05-16-2024 Potassium measurement 4.3 mmol/L 3.5-5.1 [facility] RBC Auto (Bld) [#/Vol]Ordere d By: Pepe Ruiz on 05-16-2024 Automated blood erythrocyte count 3.61 M/mm3 Low 4.2-5.4 [facility] Serum anion gap measurementO rdered By: Pepe Ruiz on 05-16-2024 Serum anion gap measurement 3 Low 5-15 [facility] Serum globulin measurementOr dered By: Pepe Ruiz on 05-16-2024 Serum globulin measurement 3.6 g/dL 2.2-4.2 [facility] Sodium levelOrdered By: Jimmieraymundo yorknapoleon Ruiz on 05-16-2024 Sodium level 140 mmol/L 136-145 [facility] Total proteinOrdered By: Jimmie juannapoleon Ruiz on 05-16-2024 Total protein 6.7 g/dL 6.4-8.2 [facility] Urea nitrogen [Mass/Vol]Orde red By: Pepe Ruiz on 05-16-2024 Serum or plasma urea nitrogen measurement (mass/volume) 22 mg/dL High 7-18 [facility] Valproate levelOrdered By: Tere Ruiz on 05-16-2024 Valproate level 74 ug/mL 50-100 [facility] Valproic Acid (Depakene) Lev tommy 05-16-2024 VALPROIC ACID 74 ug/mL Normal 50-100 [facility] Comment on above: Performed By: #### L 500.4050, L501.8100, L100.0500, L503.5510 ####[facility] [address] [place], [place], [id number] Venous blood ammonia measure mentOrdered By: Pepe Ruiz on 05-16-2024 Venous blood ammonia measurement 39.0 umol/L High 11-32 [facility] White blood cell (WBC) count Ordered By: Pepe Ruiz on 05-16-2024 White blood cell (WBC) count 3.5 K/mm3 Low 4.4-11.0 [facility] 6 Minute Walk Teston 04-25-2 024 6 Minute Walk Test Normal [facility] Office Visit Reporton 2023 Office Visit Report Normal [facility] Cardiology Visit Reporton Cardiology Visit Report Normal [facility] Urine Cultureon 02-21-2024 URC Below infection natalie corley Mixed Gram Positive Organisms [place] Count 1000-10,000 MIXC Mixed contaminants. Submit a new specimen if indicated. Normal [facility] Comment on above: Performed By: #### M 100.2200, L400.0001 ####[facility] [address] [place], [address] Internal Medicine Office Vis iton 02-19-2024 Internal Medicine Office Visit Normal [facility] Urinalysis, Completeon 02-18 BACTERIA 0 SEEN Normal None Seen [facility] Comment on above: Order Comment: COLLE CTOR TO SPECIFY Performed By: #### M 100.2200, L400.0001 ####[facility] [address] [place], [address] EPI,SQUAMOUS 0 SEEN Normal 5-10 [facility] Comment on above: Order Comment: FERNANDO CTOR TO SPECIFY Performed By: #### M 100.2200, L400.0001 ####[facility] [address] [place], [address] Mucus Ql (Urine sed) 0 SEEN Normal [facility] Comment on above: Order Comment: FERNANDO CTOR TO SPECIFY Performed By: #### M 100.2200, L400.0001 ####[facility] [address] [place], [address] RBC 0 SEEN Normal 0-5 [facility] Comment on above: Order Comment: [facility] CTOR TO SPECIFY Performed By: #### M 100.2200, L400.0001 ####[facility] [address] [place], [address] WBC 0 SEEN Normal 0-5 [facility] Comment on above: Order Comment: FERNANDO CTOR TO SPECIFY Performed By: #### M 100.2200, L400.0001 ####[facility] [address] [place], [address] Ankle min 3 Viewson 02-14-20 24 Ankle min 3 Views Normal [facility] Emergency Department Summary on 02-14-2024 Emergency Department Summary Normal [facility] Office Visit Reporton 2023 Office Visit Report Normal [facility] Neurology Visit Reporton Neurology Visit Report Normal [facility] Internal Medicine Office Vis iton 12-23-2023 Internal Medicine Office Visit Normal [facility] Office Visit Reporton 08-14- 2024 Office Visit Report Normal [facility] Pulmonary Visit Reporton Pulmonary Visit Report Normal [facility] Bilirubin, Directon 12-02-19 24 Bilirubin.direct [Mass/Vol] 0.08 mg/dL Normal 0.00-0.30 [facility] Comment on above: Order Comment: CMP, CBCD- , LIPID- Performed By: #### L 501.4700, L100.0100, L500.4050, L500.4100 ####[facility] [address] [place], [address] CBC W/Diff, Automatedon 11-03 Absolute Lymph 1.34 X10 3/uL Normal 0.83-4.51 [facility] Comment on above: Order Comment: CMP, CBCD- , LIPID- Performed By: #### L 501.4700, L100.0100, L500.4050, L500.4100 ####[facility] [address] [place], [address] Absolute Neut 2.3 X10 3/uL Normal 2.0-7.7 [facility] Comment on above: Order Comment: CMP, CBCD- , LIPID- Performed By: #### L 501.4700, L100.0100, L500.4050, L500.4100 ####[facility] [address] [place], [address] Basophils/100 WBC (Bld) 0.5 % Normal 0-1 [facility] Comment on above: Order Comment: CMP, CBCD- , LIPID- Performed By: #### L 501.4700, L100.0100, L500.4050, L500.4100 ####[facility] [address] [place], [address] Eosinophils/100 WBC (Bld) 4.1 % Normal 0-5 [facility] Comment on above: Order Comment: CMP, CBCD- MICHAELLE MANE Performed By: #### L 501.4700, L100.0100, L500.4050, L500.4100 ####[facility] [address] [place], [address] Erythrocyte distribution width (RBC) [Ratio] 13.2 % Normal 11.6-14.6 [facility] Comment on above: Order Comment: MYA, CBCD- MICHAELLE MANE Performed By: #### L 501.4700, L100.0100, L500.4050, L500.4100 ####[facility] [address] [place], [address] Hematocrit (Bld) [Volume fraction] 34.4 % Low 37-47 [facility] Comment on above: Order Comment: MYA, CBCD- MICHAELLE MANE Performed By: #### L 501.4700, L100.0100, L500.4050, L500.4100 ####[facility] [address] [place], [address] Hemoglobin (Bld) [Mass/Vol] 11.3 g/dL Low 12.0-15.0 [facility] Comment on above: Order Comment: CMP, CBCD- MICHAELLE MANE Performed By: #### L 501.4700, L100.0100, L500.4050, L500.4100 ####[facility] [address] [place], [address] IG% 0.500 Normal 0.0-0.9 [facility] Comment on above: Order Comment: MYA, CBCD- MICHAELLE MANE Result Comment: IG% - Immature Granulocytes (promyelocytes, myelocytes andmetamyelocytes) > 1% indicates that a LEFT SHIFT is Present. Performed By: #### L 501.4700, L100.0100, L500.4050, L500.4100 ####[facility] [address] [place], [address] Lymphocytes/100 WBC (Bld) 32.3 % Normal 19-41 [facility] Comment on above: Order Comment: CMP, CBCD- , LIPID- Performed By: #### L 501.4700, L100.0100, L500.4050, L500.4100 ####[facility] [address] [place], [address] MCH (RBC) [Entitic mass] 32.2 pg High 27.0-32.0 [facility] Comment on above: Order Comment: CMP, CBCD- , LIPIDSuellen MÁRQUEZ Performed By: #### L 501.4700, L100.0100, L500.4050, L500.4100 ####[facility] [address] [place], [address] MCHC (RBC) [Mass/Vol] 32.8 g/dL Normal 32-36 [facility] Comment on above: Order Comment: CMP, CBCD- , LIPIDSuellen MÁRQUEZ Performed By: #### L 501.4700, L100.0100, L500.4050, L500.4100 ####[facility] [address] [place], [address] MCV (RBC) [Entitic vol] 98.0 fL Normal 81-99 [facility] Comment on above: Order Comment: CMP, CBCD- MICHAELLE MANE Performed By: #### L 501.4700, L100.0100, L500.4050, L500.4100 ####[facility] [address], [address] Monocytes/100 WBC (Bld) 7.0 % Normal 0-10 [facility] Comment on above: Order Comment: CMP, CBCD- MICHAELLE MANE Performed By: #### L 501.4700, L100.0100, L500.4050, L500.4100 ####[facility] [address] [place], [address] Neutrophils/100 WBC (Bld) 55.6 % Normal 47-70 [facility] Comment on above: Order Comment: CMP, CBCD- , MICHAELLE MÁRQUEZ Performed By: #### L 501.4700, L100.0100, L500.4050, L500.4100 ####[facility] [address] [place], [address] Nucleated RBC (Bld) [#/Vol] 0 10*3/uL Normal 0-5 [facility] Comment on above: Order Comment: CMP, CBCD- MICHAELLE MANE Performed By: #### L 501.4700, L100.0100, L500.4050, L500.4100 ####[facility] [address], [address] Platelet mean volume (Bld) [Entitic vol] 11.3 fL Normal 6.2-12.0 [facility] Comment on above: Order Comment: CMP, CBCD- MICHAELLE MANE Performed By: #### L 501.4700, L100.0100, L500.4050, L500.4100 ####[facility] [address] [place], [address] Platelets (Bld) [#/Vol] 207 10*3/uL Normal 150-450 [facility] Comment on above: Order Comment: CMP, CBCD- MICHAELLE MANE Performed By: #### L 501.4700, L100.0100, L500.4050, L500.4100 ####[facility] [address] [place], [address] RBC (Bld) [#/Vol] 3.51 10*6/uL Low 4.2-5.4 [facility] Comment on above: Order Comment: CMP, CBCD- , LIPID- Performed By: #### L 501.4700, L100.0100, L500.4050, L500.4100 ####[facility] [address] [place], [address] RDW SD 47.1 fl High 35.1-43.9 [facility] Comment on above: Order Comment: CMP, CBCD- , LIPID- Performed By: #### L 501.4700, L100.0100, L500.4050, L500.4100 ####[facility] [address] [place], [address] WBC (Bld) [#/Vol] 4.2 10*3/uL Low 4.4-11.0 [facility] Comment on above: Order Comment: CMP, CBCD- , LIPID- Performed By: #### L 501.4700, L100.0100, L500.4050, L500.4100 ####[facility] [address] [place], [address] Comprehensive Metabolic Prof [facility] 12-02-2023 Albumin [Mass/Vol] 3.0 g/dL Low 3.2-5.0 [facility] Comment on above: Order Comment: CMP, CBCD- , LIPID- Performed By: #### L 501.4700, L100.0100, L500.4050, L500.4100 ####[facility] [address] [place], [address] Albumin/Globulin [Mass ratio] 0.8 {ratio} Low 0.9-2.4 [facility] Comment on above: Order Comment: CMP, CBCD- , LIPIDSuellen MÁRQUEZ Performed By: #### L 501.4700, L100.0100, L500.4050, L500.4100 ####[facility] [address] [place], [address] ALK P 70 U/L Normal 45-117 [facility] Comment on above: Order Comment: CMP, CBCD- , MICHAELLE MÁRQUEZ Performed By: #### L 501.4700, L100.0100, L500.4050, L500.4100 ####[facility] [address] [place], [address] ALT [Catalytic activity/Vol] 23 U/L Normal 13-56 [facility] Comment on above: Order Comment: CMP, CBCD- MICHAELLE MANE Performed By: #### L 501.4700, L100.0100, L500.4050, L500.4100 ####[facility] [address] [place], [address] AST [Catalytic activity/Vol] 14 U/L Low 15-37 [facility] Comment on above: Order Comment: CMP, CBCD- MICHAELLE MANE Performed By: #### L 501.4700, L100.0100, L500.4050, L500.4100 ####[facility] [address] [place], [address] BUN/CRE 15.6 RATIO Normal 10-20 [facility] Comment on above: Order Comment: MYA, CBCD- MICHAELLE MANE Performed By: #### L 501.4700, L100.0100, L500.4050, L500.4100 ####[facility] [address] [place], [address] CA,Total 8.4 mg/dL Low 8.5-10.1 [facility] Comment on above: Order Comment: CMP, CBCD- , LIPID- Performed By: #### L 501.4700, L100.0100, L500.4050, L500.4100 ####[facility] [address] [place], [address] Chloride [Moles/Vol] 112 mmol/L High 98-107 [facility] Comment on above: Order Comment: CMP, CBCD- , LIPID- Performed By: #### L 501.4700, L100.0100, L500.4050, L500.4100 ####[facility] [address] [place], [address] CO2 [Moles/Vol] 28.0 mmol/L Normal 21.0-32.0 [facility] Comment on above: Order Comment: CMP, CBCD- , LIPID- Performed By: #### L 501.4700, L100.0100, L500.4050, L500.4100 ####[facility] [address] [place], [address] Creatinine [Mass/Vol] 0.96 mg/dL Normal 0.55-1.02 [facility] Comment on above: Order Comment: CMP, CBCD- , LIPID- Result Comment: The validity of the calculated GFR GFRAA in patients over70 years has not been determined. Clinical correlation isessential. Performed By: #### L 501.4700, L100.0100, L500.4050, L500.4100 ####[facility] [id number] [place], [address] EST GFR - AA 74 mL/min Normal >60 [facility] Comment on above: Order Comment: ED ROQUE- , MICHAELLE MÁRQUEZ Result Comment: Afri can Finnish GFR Calc Performed By: #### L 501.4700, L100.0100, L500.4050, L500.4100 ####[facility] [id number] [place], [address] GAP 4 Low 5-15 [facility] Comment on above: Order Comment: ED ROQUE- , MICHAELLE MÁRQUEZ Performed By: #### L 501.4700, L100.0100, L500.4050, L500.4100 ####[facility] [id number] [place], [address] GFR/1.73 sq M.predicted among non-blacks MDRD (S/P/Bld) [Vol rate/Area] 61 mL/min/{1.73_m2} Normal >60 [facility] Comment on above: Order Comment: STAR ROQUE LIPID- DR.ROOF Result Comment: Non- GFR Calc Performed By: #### L 501.4700, L100.0100, L500.4050, L500.4100 ####[facility] [address] [place], [address] Globulin (S) [Mass/Vol] 3.8 g/dL Normal 2.2-4.2 [facility] Comment on above: Order Comment: ED ROQUE- MICHAELLE MANE Performed By: #### L 501.4700, L100.0100, L500.4050, L500.4100 ####[facility] [address] [place], [address] Glucose [Mass/Vol] 126 mg/dL High 74-106 [facility] Comment on above: Order Comment: STAR ROQUE LIPID- DR.ROOF Result Comment: Fast ing Glucose result greater than or equal to 126 mg/dLsuggests DIABETES MELLITUS per A.D.A. criteria. Performed By: #### L 501.4700, L100.0100, L500.4050, L500.4100 ####[facility] [address] [place], [address] Potassium [Moles/Vol] 3.9 mmol/L Normal 3.5-5.1 [facility] Comment on above: Order Comment: CMP, CBCD- , LIPID- Performed By: #### L 501.4700, L100.0100, L500.4050, L500.4100 ####[facility] [address] [place], [address] Sodium [Moles/Vol] 144 mmol/L Normal 136-145 [facility] Comment on above: Order Comment: MYA, CBCD- , LIPIDSuellen MÁRQUEZ Performed By: #### L 501.4700, L100.0100, L500.4050, L500.4100 ####[facility] [address] [place], [address] T BILI < 0.10 Low 0.20-1.00 [facility] Comment on above: Order Comment: MYA, CBCD- , LIPID- Result Comment: For patients on eltrombopag therapy, use of Dimension [place] TBIL is not recommended. Performed By: #### L 501.4700, L100.0100, L500.4050, L500.4100 ####[facility] [address] [place], [address] T PROT 6.8 g/dL Normal 6.4-8.2 [facility] Comment on above: Order Comment: MYA, CBCD- , LIPIDSuellen MÁRQUEZ Performed By: #### L 501.4700, L100.0100, L500.4050, L500.4100 ####[facility] [address] [place], [address] Urea nitrogen [Mass/Vol] 15 mg/dL Normal 7-18 [facility] Comment on above: Order Comment: CMP, CBCD- , LIPID- Performed By: #### L 501.4700, L100.0100, L500.4050, L500.4100 ####[facility] [address] [place], [address] Internal Medicine Office Vis iton 12-02-2023 Internal Medicine Office Visit Normal [facility] Lipid Profileon 12-02-2023 Cholesterol [Mass/Vol] 155 mg/dL Normal 200 [facility] Comment on above: Order Comment: CMP, CBCD- , LIPID- Result Comment: <200 mg/dL Desirable 200-240 mg/dL Borderline >240 mg/dL High Risk Performed By: #### L 501.4700, L100.0100, L500.4050, L500.4100 ####[facility] [address] [place], [address] Cholesterol in HDL [Mass/Vol] 56 mg/dL Normal [facility] Comment on above: Order Comment: CMP, CBCD- , LIPID- Result Comment: The drugs N-Acetylcysteine and Metamizole may falselydepress this assay. Reference Range HDL <40 mg/dL Low HDL Cholesterol HDL >or= 60 mg/dL High HDL Cholesterol Performed By: #### L 501.4700, L100.0100, L500.4050, L500.4100 ####[facility] [address] [place], [address] Cholesterol in LDL [Mass/Vol] 85 mg/dL Normal 0-130 [facility] Comment on above: Order Comment: CMP, CBCD- , LIPID- Performed By: #### L 501.4700, L100.0100, L500.4050, L500.4100 ####[facility] [address] [place], [address] Cholesterol in VLDL [Mass/Vol] 14 mg/dL Normal 5-40 [facility] Comment on above: Order Comment: CMP, CBCD- , LIPID- Performed By: #### L 501.4700, L100.0100, L500.4050, L500.4100 ####[facility] [address] [place], [address] Triglyceride [Mass/Vol] 72 mg/dL Normal [facility] Comment on above: Order Comment: CMP, CBCD- , LIPID- Result Comment: The drugs N-Acetylcysteine and Metamizole may falselydepress this assay.Serum Triglycerides Reference Interval Normal <150 mg/dL Borderline high 150 - 199 mg/dL High 200 - 499 mg/dL Very High > or = 500 mg/dL Performed By: #### L 501.4700, L100.0100, L500.4050, L500.4100 ####[facility] [address] [place], [address] Comprehensive Metabolic Prof ilon 11-24-2023 ALB Normal 3.2-5.0 [facility] Comment on above: Result Comment: Canc elled via OM: Order cancelled - Patient discharged Performed By: #### L 500.4050 ####[facility] [address] [place], [address] ALK P Normal 45-117 [facility] Comment on above: Result Comment: Canc elled via OM: Order cancelled - Patient discharged Performed By: #### L 500.4050 ####[facility] [address] [place], [address] ALT Normal 13-56 [facility] Comment on above: Result Comment: Canc elled via OM: Order cancelled - Patient discharged Performed By: #### L 500.4050 ####[facility] [address] [place], [address] AST Normal 15-37 [facility] Comment on above: Result Comment: Canc elled via OM: Order cancelled - Patient discharged Performed By: #### L 500.4050 ####[facility] [address] [place], [address] BUN Normal 7-18 [facility] Comment on above: Result Comment: Canc elled via OM: Order cancelled - Patient discharged Performed By: #### L 500.4050 ####[facility] [address] [place], [address] BUN/CRE Normal 10-20 [facility] Comment on above: Result Comment: Canc elled via OM: Order cancelled - Patient discharged Performed By: #### L 500.4050 ####[facility] [address] [place], [address] CA,Total Normal 8.5-10.1 [facility] Comment on above: Result Comment: Canc elled via OM: Order cancelled - Patient discharged Performed By: #### L 500.4050 ####[facility] [address] [place], [address] CL Normal 98-107 [facility] Comment on above: Result Comment: Canc elled via OM: Order cancelled - Patient discharged Performed By: #### L 500.4050 ####[facility] [address] [place], [address] CO2 Normal 21.0-32.0 [facility] Comment on above: Result Comment: Canc elled via OM: Order cancelled - Patient discharged Performed By: #### L 500.4050 ####[facility] [address] [place], [address] CREAT,SERUM Normal 0.55-1.02 [facility] Comment on above: Result Comment: Canc elled via OM: Order cancelled - Patient discharged Performed By: #### L 500.4050 ####[facility] [address] [place], [address] EST GFR Normal >60 [facility] Comment on above: Result Comment: Canc elled via OM: Order cancelled - Patient discharged Performed By: #### L 500.4050 ####[facility] [address] [place], [address] EST GFR - AA Normal >60 [facility] Comment on above: Result Comment: Canc elled via OM: Order cancelled - Patient discharged Performed By: #### L 500.4050 ####[facility] [address] [place], [address] GAP Normal 5-15 [facility] Comment on above: Result Comment: Canc elled via OM: Order cancelled - Patient discharged Performed By: #### L 500.4050 ####[facility] [address] [place], [address] GLU Normal 74-106 [facility] Comment on above: Result Comment: Canc elled via OM: Order cancelled - Patient discharged Performed By: #### L 500.4050 ####[facility] [address] [place], [address] Potassium Normal 3.5-5.1 [facility] Comment on above: Result Comment: Canc elled via OM: Order cancelled - Patient discharged Performed By: #### L 500.4050 ####[facility] [address] [place], [address] T BILI Normal 0.20-1.00 [facility] Comment on above: Result Comment: Canc elled via OM: Order cancelled - Patient discharged Performed By: #### L 500.4050 ####[facility] [address] [place], [address] T PROT Normal 6.4-8.2 [facility] Comment on above: Result Comment: Canc elled via OM: Order cancelled - Patient discharged Performed By: #### L 500.4050 ####[facility] [address] [place], [address] Comprehensive Metabolic Profil Normal 136-145 [facility] Comment on above: Result Comment: Canc elled via OM: Order cancelled - Patient discharged Performed By: #### L 500.4050 ####[facility] [address] [place], [address] Culture, Blood (WB)on 2023 CUB No growth in 5 days. Normal [facility] Comment on above: Performed By: #### M 200.1000 ####[facility] [address] [place], [address] CBC W/Diff, Automatedon - Absolute Neut Normal 2.0-7.7 [facility] Comment on above: Result Comment: Canc elled via OM: Order cancelled - Patient discharged Performed By: #### L 100.0100, L500.2500 ####[facility] [address] [place], [address] HCT Normal 37-47 [facility] Comment on above: Result Comment: Canc elled via OM: Order cancelled - Patient discharged Performed By: #### L 100.0100, L500.2500 ####[facility] [address] [place], [address] HGB Normal 12.0-15.0 [facility] Comment on above: Result Comment: Canc elled via OM: Order cancelled - Patient discharged Performed By: #### L 100.0100, L500.2500 ####[facility] [address] [place], [address] MCH Normal 27.0-32.0 [facility] Comment on above: Result Comment: Canc elled via OM: Order cancelled - Patient discharged Performed By: #### L 100.0100, L500.2500 ####[facility] [address] [place], [address] MCHC Normal 32-36 [facility] Comment on above: Result Comment: Canc elled via OM: Order cancelled - Patient discharged Performed By: #### L 100.0100, L500.2500 ####[facility] [address] [place], [address] MCV Normal 81-99 [facility] Comment on above: Result Comment: Canc elled via OM: Order cancelled - Patient discharged Performed By: #### L 100.0100, L500.2500 ####[facility] [address] [place], [address] NEUT% Normal 47-70 [facility] Comment on above: Result Comment: Canc elled via OM: Order cancelled - Patient discharged Performed By: #### L 100.0100, L500.2500 ####[facility] [address] [place], [address] PLT Normal 150-450 [facility] Comment on above: Result Comment: Canc elled via OM: Order cancelled - Patient discharged Performed By: #### L 100.0100, L500.2500 ####[facility] [address] [place], [address] RBC Normal 4.2-5.4 [facility] Comment on above: Result Comment: Canc elled via OM: Order cancelled - Patient discharged Performed By: #### L 100.0100, L500.2500 ####[facility] [address] [place], [address] RDW CV Normal 11.6-14.6 [facility] Comment on above: Result Comment: Canc elled via OM: Order cancelled - Patient discharged Performed By: #### L 100.0100, L500.2500 ####[facility] [address] [place], [address] RDW SD Normal 35.1-43.9 [facility] Comment on above: Result Comment: Canc elled via OM: Order cancelled - Patient discharged Performed By: #### L 100.0100, L500.2500 ####[facility] [address] [place], [address] WBC Normal 4.4-11.0 [facility] Comment on above: Result Comment: Canc elled via OM: Order cancelled - Patient discharged Performed By: #### L 100.0100, L500.2500 ####[facility] [address] [place], [address] Comprehensive Metabolic Prof ilon 11-23-2023 ALB Normal 3.2-5.0 [facility] Comment on above: Result Comment: Canc elled via OM: Order cancelled - Patient discharged Performed By: #### L 500.4050 ####[facility] [address] [place], [address] ALK P Normal 45-117 [facility] Comment on above: Result Comment: Canc elled via OM: Order cancelled - Patient discharged Performed By: #### L 500.4050 ####[facility] [address] [place], [address] ALT Normal 13-56 [facility] Comment on above: Result Comment: Canc elled via OM: Order cancelled - Patient discharged Performed By: #### L 500.4050 ####[facility] [address] [place], [address] AST Normal 15-37 [facility] Comment on above: Result Comment: Canc elled via OM: Order cancelled - Patient discharged Performed By: #### L 500.4050 ####[facility] [address] [place], [address] BUN Normal 7-18 [facility] Comment on above: Result Comment: Canc elled via OM: Order cancelled - Patient discharged Performed By: #### L 500.4050 ####[facility] [address] [place], [address] Result Comment: Canc elled via OM: MD Ordered Performed By: #### L 100.0100, L500.2500 ####[facility] [address] [place], [address] BUN/CRE Normal 10-20 [facility] Comment on above: Result Comment: Canc elled via OM: Order cancelled - Patient discharged Performed By: #### L 500.4050 ####[facility] [address] [place], [address] Result Comment: Canc elled via OM: MD Ordered Performed By: #### L 100.0100, L500.2500 ####[facility] [address] [place], [address] CA,Total Normal 8.5-10.1 [facility] Comment on above: Result Comment: Canc elled via OM: Order cancelled - Patient discharged Performed By: #### L 500.4050 ####[facility] [address] [place], [address] Result Comment: Canc elled via OM: MD Ordered Performed By: #### L 100.0100, L500.2500 ####[facility] [address] [place], [address] CL Normal 98-107 [facility] Comment on above: Result Comment: Canc elled via OM: Order cancelled - Patient discharged Performed By: #### L 500.4050 ####[facility] [address] [place], [address] Result Comment: Canc elled via OM: MD Ordered Performed By: #### L 100.0100, L500.2500 ####[facility] [address] [place], [address] CO2 Normal 21.0-32.0 [facility] Comment on above: Result Comment: Canc elled via OM: Order cancelled - Patient discharged Performed By: #### L 500.4050 ####[facility] [address] [place], [address] Result Comment: Canc elled via OM: MD Ordered Performed By: #### L 100.0100, L500.2500 ####[facility] [address] [place], [address] CREAT,SERUM Normal 0.55-1.02 [facility] Comment on above: Result Comment: Canc elled via OM: Order cancelled - Patient discharged Performed By: #### L 500.4050 ####[facility] [address] [place], [address] Result Comment: Canc elled via OM: MD Ordered Performed By: #### L 100.0100, L500.2500 ####[facility] [address] [place], [address] EST GFR Normal >60 [facility] Comment on above: Result Comment: Canc elled via OM: Order cancelled - Patient discharged Performed By: #### L 500.4050 ####[facility] [address] [place], [address] Result Comment: Canc elled via OM: MD Ordered Performed By: #### L 100.0100, L500.2500 ####[facility] [address] [place], [address] EST GFR - AA Normal >60 [facility] Comment on above: Result Comment: Canc elled via OM: Order cancelled - Patient discharged Performed By: #### L 500.4050 ####[facility] [address] [place], [address] Result Comment: Canc elled via OM: MD Ordered Performed By: #### L 100.0100, L500.2500 ####[facility] [address] [place], [address] GAP Normal 5-15 [facility] Comment on above: Result Comment: Canc elled via OM: Order cancelled - Patient discharged Performed By: #### L 500.4050 ####[facility] [address] [place], [address] Result Comment: Canc elled via OM: MD Ordered Performed By: #### L 100.0100, L500.2500 ####[facility] [address] [place], [address] GLU Normal 74-106 [facility] Comment on above: Result Comment: Canc elled via OM: Order cancelled - Patient discharged Performed By: #### L 500.4050 ####[facility] [address] [place], [address] Result Comment: Canc elled via OM: MD Ordered Performed By: #### L 100.0100, L500.2500 ####[facility] [address] [place], [address] Potassium Normal 3.5-5.1 [facility] Comment on above: Result Comment: Canc elled via OM: Order cancelled - Patient discharged Performed By: #### L 500.4050 ####[facility] [address] [place], [address] Result Comment: Canc elled via OM: MD Ordered Performed By: #### L 100.0100, L500.2500 ####[facility] [address] [place], [address] T BILI Normal 0.20-1.00 [facility] Comment on above: Result Comment: Canc elled via OM: Order cancelled - Patient discharged Performed By: #### L 500.4050 ####[facility] [address] [place], [address] T PROT Normal 6.4-8.2 [facility] Comment on above: Result Comment: Canc elled via OM: Order cancelled - Patient discharged Performed By: #### L 500.4050 ####[facility] [address] [place], [address] Comprehensive Metabolic Profil Normal 136-145 [facility] Comment on above: Result Comment: Canc elled via OM: Order cancelled - Patient discharged Performed By: #### L 500.4050 ####[facility] [address] [place], [address] Result Comment: Canc elled via OM: MD Ordered Performed By: #### L 100.0100, L500.2500 ####[facility] [address] [place], [address] CBC W/Diff, Automatedon 07-2 Absolute Neut Normal 2.0-7.7 [facility] Comment on above: Result Comment: Canc elled via OM: Order cancelled - Patient discharged Performed By: #### L 100.0100, L500.2500 ####[facility] [address] [place], [address] HCT Normal 37-47 [facility] Comment on above: Result Comment: Canc elled via OM: Order cancelled - Patient discharged Performed By: #### L 100.0100, L500.2500 ####[facility] [address] [place], [address] HGB Normal 12.0-15.0 [facility] Comment on above: Result Comment: Canc elled via OM: Order cancelled - Patient discharged Performed By: #### L 100.0100, L500.2500 ####[facility] [address] [place], [address] MCH Normal 27.0-32.0 [facility] Comment on above: Result Comment: Canc elled via OM: Order cancelled - Patient discharged Performed By: #### L 100.0100, L500.2500 ####[facility] [address] [place], [address] MCHC Normal 32-36 [facility] Comment on above: Result Comment: Canc elled via OM: Order cancelled - Patient discharged Performed By: #### L 100.0100, L500.2500 ####[facility] [address] [place], [address] MCV Normal 81-99 [facility] Comment on above: Result Comment: Canc elled via OM: Order cancelled - Patient discharged Performed By: #### L 100.0100, L500.2500 ####[facility] [address] [place], [address] NEUT% Normal 47-70 [facility] Comment on above: Result Comment: Canc elled via OM: Order cancelled - Patient discharged Performed By: #### L 100.0100, L500.2500 ####[facility] [address] [place], [address] PLT Normal 150-450 [facility] Comment on above: Result Comment: Canc elled via OM: Order cancelled - Patient discharged Performed By: #### L 100.0100, L500.2500 ####[facility] [address] [place], [address] RBC Normal 4.2-5.4 [facility] Comment on above: Result Comment: Canc elled via OM: Order cancelled - Patient discharged Performed By: #### L 100.0100, L500.2500 ####[facility] [address] [place], [address] RDW CV Normal 11.6-14.6 [facility] Comment on above: Result Comment: Canc elled via OM: Order cancelled - Patient discharged Performed By: #### L 100.0100, L500.2500 ####[facility] [address] [place], [address] RDW SD Normal 35.1-43.9 [facility] Comment on above: Result Comment: Canc elled via OM: Order cancelled - Patient discharged Performed By: #### L 100.0100, L500.2500 ####[facility] [address] [place], [address] WBC Normal 4.4-11.0 [facility] Comment on above: Result Comment: Canc elled via OM: Order cancelled - Patient discharged Performed By: #### L 100.0100, L500.2500 ####[facility] [address] [place], [address] Comprehensive Metabolic Prof ilon 11-22-2023 ALB Normal 3.2-5.0 [facility] Comment on above: Result Comment: Canc elled via OM: Order cancelled - Patient discharged Performed By: #### L 500.4050 ####[facility] [address] [place], [address] ALK P Normal 45-117 [facility] Comment on above: Result Comment: Canc elled via OM: Order cancelled - Patient discharged Performed By: #### L 500.4050 ####[facility] [address] [place], [address] ALT Normal 13-56 [facility] Comment on above: Result Comment: Canc elled via OM: Order cancelled - Patient discharged Performed By: #### L 500.4050 ####[facility] [address] [place], [address] AST Normal 15-37 [facility] Comment on above: Result Comment: Canc elled via OM: Order cancelled - Patient discharged Performed By: #### L 500.4050 ####[facility] [address] [place], [address] BUN Normal 7-18 [facility] Comment on above: Result Comment: Canc elled via OM: Order cancelled - Patient discharged Performed By: #### L 500.4050 ####[facility] [address] [place], [address] Result Comment: Canc elled via OM: MD Ordered Performed By: #### L 100.0100, L500.2500 ####[facility] [address] [place], [address] BUN/CRE Normal 10-20 [facility] Comment on above: Result Comment: Canc elled via OM: Order cancelled - Patient discharged Performed By: #### L 500.4050 ####[facility] [address] [place], [address] Result Comment: Canc elled via OM: MD Ordered Performed By: #### L 100.0100, L500.2500 ####[facility] [address] [place], [address] CA,Total Normal 8.5-10.1 [facility] Comment on above: Result Comment: Canc elled via OM: Order cancelled - Patient discharged Performed By: #### L 500.4050 ####[facility] [address] [place], [address] Result Comment: Canc elled via OM: MD Ordered Performed By: #### L 100.0100, L500.2500 ####[facility] [address] [place], [address] CL Normal 98-107 [facility] Comment on above: Result Comment: Canc elled via OM: Order cancelled - Patient discharged Performed By: #### L 500.4050 ####[facility] [address] [place], [address] Result Comment: Canc elled via OM: MD Ordered Performed By: #### L 100.0100, L500.2500 ####[facility] [address] [place], [address] CO2 Normal 21.0-32.0 [facility] Comment on above: Result Comment: Canc elled via OM: Order cancelled - Patient discharged Performed By: #### L 500.4050 ####[facility] [address] [place], [address] Result Comment: Canc elled via OM: MD Ordered Performed By: #### L 100.0100, L500.2500 ####[facility] [address] [place], [address] CREAT,SERUM Normal 0.55-1.02 [facility] Comment on above: Result Comment: Canc elled via OM: Order cancelled - Patient discharged Performed By: #### L 500.4050 ####[facility] [address] [place], [address] Result Comment: Canc elled via OM: MD Ordered Performed By: #### L 100.0100, L500.2500 ####[facility] [address] [place], [address] EST GFR Normal >60 [facility] Comment on above: Result Comment: Canc elled via OM: Order cancelled - Patient discharged Performed By: #### L 500.4050 ####[facility] [address] [place], [address] Result Comment: Canc elled via OM: MD Ordered Performed By: #### L 100.0100, L500.2500 ####[facility] [address] [place], [address] EST GFR - AA Normal >60 [facility] Comment on above: Result Comment: Canc elled via OM: Order cancelled - Patient discharged Performed By: #### L 500.4050 ####[facility] [address] [place], [address] Result Comment: Canc elled via OM: MD Ordered Performed By: #### L 100.0100, L500.2500 ####[facility] [address] [place], [address] GAP Normal 5-15 [facility] Comment on above: Result Comment: Canc elled via OM: Order cancelled - Patient discharged Performed By: #### L 500.4050 ####[facility] [address] [place], [address] Result Comment: Canc elled via OM: MD Ordered Performed By: #### L 100.0100, L500.2500 ####[facility] [address] [place], [address] GLU Normal 74-106 [facility] Comment on above: Result Comment: Canc elled via OM: Order cancelled - Patient discharged Performed By: #### L 500.4050 ####[facility] [address] [place], [address] Result Comment: Canc elled via OM: MD Ordered Performed By: #### L 100.0100, L500.2500 ####[facility] [address] [place], [address] Potassium Normal 3.5-5.1 [facility] Comment on above: Result Comment: Canc elled via OM: Order cancelled - Patient discharged Performed By: #### L 500.4050 ####[facility] [address] [place], [address] Result Comment: Canc elled via OM: MD Ordered Performed By: #### L 100.0100, L500.2500 ####[facility] [address] [place], [address] T BILI Normal 0.20-1.00 [facility] Comment on above: Result Comment: Canc elled via OM: Order cancelled - Patient discharged Performed By: #### L 500.4050 ####[facility] [address] [place], [address] T PROT Normal 6.4-8.2 [facility] Comment on above: Result Comment: Canc elled via OM: Order cancelled - Patient discharged Performed By: #### L 500.4050 ####[facility] [address] [place], [address] Comprehensive Metabolic Profil Normal 136-145 [facility] Comment on above: Result Comment: Canc elled via OM: Order cancelled - Patient discharged Performed By: #### L 500.4050 ####[facility] [address] [place], [address] Result Comment: Canc elled via OM: MD Ordered Performed By: #### L 100.0100, L500.2500 ####[facility] [address] [place], [address] CBC W/Diff, Automatedon 07-2 0-2023 Absolute Neut Normal 2.0-7.7 [facility] Comment on above: Result Comment: Canc elled via OM: Order cancelled - Patient discharged Performed By: #### L 100.0100, L500.2500 ####[facility] [address] [place], [address] HCT Normal 37-47 [facility] Comment on above: Result Comment: Canc elled via OM: Order cancelled - Patient discharged Performed By: #### L 100.0100, L500.2500 ####[facility] [address] [place], [address] HGB Normal 12.0-15.0 [facility] Comment on above: Result Comment: Canc elled via OM: Order cancelled - Patient discharged Performed By: #### L 100.0100, L500.2500 ####[facility] [address] [place], [address] MCH Normal 27.0-32.0 [facility] Comment on above: Result Comment: Canc elled via OM: Order cancelled - Patient discharged Performed By: #### L 100.0100, L500.2500 ####[facility] [address] [place], [address] MCHC Normal 32-36 [facility] Comment on above: Result Comment: Canc elled via OM: Order cancelled - Patient discharged Performed By: #### L 100.0100, L500.2500 ####[facility] [address] [place], [address] MCV Normal 81-99 [facility] Comment on above: Result Comment: Canc elled via OM: Order cancelled - Patient discharged Performed By: #### L 100.0100, L500.2500 ####[facility] [address] [place], [address] NEUT% Normal 47-70 [facility] Comment on above: Result Comment: Canc elled via OM: Order cancelled - Patient discharged Performed By: #### L 100.0100, L500.2500 ####[facility] [address] [place], [address] PLT Normal 150-450 [facility] Comment on above: Result Comment: Canc elled via OM: Order cancelled - Patient discharged Performed By: #### L 100.0100, L500.2500 ####[facility] [address] [place], [address] RBC Normal 4.2-5.4 [facility] Comment on above: Result Comment: Canc elled via OM: Order cancelled - Patient discharged Performed By: #### L 100.0100, L500.2500 ####[facility] [address] [place], [address] RDW CV Normal 11.6-14.6 [facility] Comment on above: Result Comment: Canc elled via OM: Order cancelled - Patient discharged Performed By: #### L 100.0100, L500.2500 ####[facility] [address] [place], [address] RDW SD Normal 35.1-43.9 [facility] Comment on above: Result Comment: Canc elled via OM: Order cancelled - Patient discharged Performed By: #### L 100.0100, L500.2500 ####[facility] [address] [place], [address] WBC Normal 4.4-11.0 [facility] Comment on above: Result Comment: Canc elled via OM: Order cancelled - Patient discharged Performed By: #### L 100.0100, L500.2500 ####[facility] [address] [place], [address] Comprehensive Metabolic Prof ilon 11-21-2023 ALB Normal 3.2-5.0 [facility] Comment on above: Result Comment: Canc elled via OM: Order cancelled - Patient discharged Performed By: #### L 500.4050 ####[facility] [address] [place], [address] ALK P Normal 45-117 [facility] Comment on above: Result Comment: Canc elled via OM: Order cancelled - Patient discharged Performed By: #### L 500.4050 ####[facility] [address] [place], [address] ALT Normal 13-56 [facility] Comment on above: Result Comment: Canc elled via OM: Order cancelled - Patient discharged Performed By: #### L 500.4050 ####[facility] [address] [place], [address] AST Normal 15-37 [facility] Comment on above: Result Comment: Canc elled via OM: Order cancelled - Patient discharged Performed By: #### L 500.4050 ####[facility] [address] [place], [address] BUN Normal 7-18 [facility] Comment on above: Result Comment: Canc elled via OM: Order cancelled - Patient discharged Performed By: #### L 500.4050 ####[facility] [address] [place], [address] Result Comment: Canc elled via OM: MD Ordered Performed By: #### L 100.0100, L500.2500 ####[facility] [address] [place], [address] BUN/CRE Normal 10-20 [facility] Comment on above: Result Comment: Canc elled via OM: Order cancelled - Patient discharged Performed By: #### L 500.4050 ####[facility] [address] [place], [address] Result Comment: Canc elled via OM: MD Ordered Performed By: #### L 100.0100, L500.2500 ####[facility] [address] [place], [address] CA,Total Normal 8.5-10.1 [facility] Comment on above: Result Comment: Canc elled via OM: Order cancelled - Patient discharged Performed By: #### L 500.4050 ####[facility] [address] [place], [address] Result Comment: Canc elled via OM: MD Ordered Performed By: #### L 100.0100, L500.2500 ####[facility] [address] [place], [address] CL Normal 98-107 [facility] Comment on above: Result Comment: Canc elled via OM: Order cancelled - Patient discharged Performed By: #### L 500.4050 ####[facility] [address] [place], [address] Result Comment: Canc elled via OM: MD Ordered Performed By: #### L 100.0100, L500.2500 ####[facility] [address] [place], [address] CO2 Normal 21.0-32.0 [facility] Comment on above: Result Comment: Canc elled via OM: Order cancelled - Patient discharged Performed By: #### L 500.4050 ####[facility] [address] [place], [address] Result Comment: Canc elled via OM: MD Ordered Performed By: #### L 100.0100, L500.2500 ####[facility] [address] [place], [address] CREAT,SERUM Normal 0.55-1.02 [facility] Comment on above: Result Comment: Canc elled via OM: Order cancelled - Patient discharged Performed By: #### L 500.4050 ####[facility] [address] [place], [address] Result Comment: Canc elled via OM: MD Ordered Performed By: #### L 100.0100, L500.2500 ####[facility] [address] [place], [address] EST GFR Normal >60 [facility] Comment on above: Result Comment: Canc elled via OM: Order cancelled - Patient discharged Performed By: #### L 500.4050 ####[facility] [address] [place], [address] Result Comment: Canc elled via OM: MD Ordered Performed By: #### L 100.0100, L500.2500 ####[facility] [address] [place], [address] EST GFR - AA Normal >60 [facility] Comment on above: Result Comment: Canc elled via OM: Order cancelled - Patient discharged Performed By: #### L 500.4050 ####[facility] [address] [place], [address] Result Comment: Canc elled via OM: MD Ordered Performed By: #### L 100.0100, L500.2500 ####[facility] [address] [place], [address] GAP Normal 5-15 [facility] Comment on above: Result Comment: Canc elled via OM: Order cancelled - Patient discharged Performed By: #### L 500.4050 ####[facility] [address] [place], [address] Result Comment: Canc elled via OM: MD Ordered Performed By: #### L 100.0100, L500.2500 ####[facility] [address] [place], [address] GLU Normal 74-106 [facility] Comment on above: Result Comment: Canc elled via OM: Order cancelled - Patient discharged Performed By: #### L 500.4050 ####[facility] [address] [place], [address] Result Comment: Canc elled via OM: MD Ordered Performed By: #### L 100.0100, L500.2500 ####[facility] [address] [place], [address] Potassium Normal 3.5-5.1 [facility] Comment on above: Result Comment: Canc elled via OM: Order cancelled - Patient discharged Performed By: #### L 500.4050 ####[facility] [address] [place], [address] Result Comment: Canc elled via OM: MD Ordered Performed By: #### L 100.0100, L500.2500 ####[facility] [address] [place], [address] T BILI Normal 0.20-1.00 [facility] Comment on above: Result Comment: Canc elled via OM: Order cancelled - Patient discharged Performed By: #### L 500.4050 ####[facility] [address] [place], [address] T PROT Normal 6.4-8.2 [facility] Comment on above: Result Comment: Canc elled via OM: Order cancelled - Patient discharged Performed By: #### L 500.4050 ####[facility] [address] [place], [address] Comprehensive Metabolic Profil Normal 136-145 [facility] Comment on above: Result Comment: Canc elled via OM: Order cancelled - Patient discharged Performed By: #### L 500.4050 ####[facility] [address] [place], [address] Result Comment: Canc elled via OM: MD Ordered Performed By: #### L 100.0100, L500.2500 ####[facility] [address] [place], [address] Basic Metabolic Profile (BMP )on 11-20-2023 BUN Normal 7-18 [facility] Comment on above: Result Comment: Canc elled via OM: MD Ordered Performed By: #### L 500.2500, L100.0100 ####[facility] [address] [place], [address] Result Comment: Canc elled via OM: Order cancelled - Patient discharged Performed By: #### L 500.4050 ####[facility] [address] [place], [address] BUN/CRE Normal 10-20 [facility] Comment on above: Result Comment: Canc elled via OM: MD Ordered Performed By: #### L 500.2500, L100.0100 ####[facility] [address] [place], [address] Result Comment: Canc elled via OM: Order cancelled - Patient discharged Performed By: #### L 500.4050 ####[facility] [address] [place], [address] CA,Total Normal 8.5-10.1 [facility] Comment on above: Result Comment: Canc elled via OM: MD Ordered Performed By: #### L 500.2500, L100.0100 ####[facility] [address] [place], [address] Result Comment: Canc elled via OM: Order cancelled - Patient discharged Performed By: #### L 500.4050 ####[facility] [address] [place], [address] CL Normal 98-107 [facility] Comment on above: Result Comment: Canc elled via OM: MD Ordered Performed By: #### L 500.2500, L100.0100 ####[facility] [address] [place], [address] Result Comment: Canc elled via OM: Order cancelled - Patient discharged Performed By: #### L 500.4050 ####[facility] [address] [place], [address] CO2 Normal 21.0-32.0 [facility] Comment on above: Result Comment: Canc elled via OM: MD Ordered Performed By: #### L 500.2500, L100.0100 ####[facility] [address] [place], [address] Result Comment: Canc elled via OM: Order cancelled - Patient discharged Performed By: #### L 500.4050 ####[facility] [address] [place], [address] CREAT,SERUM Normal 0.55-1.02 [facility] Comment on above: Result Comment: Canc elled via OM: MD Ordered Performed By: #### L 500.2500, L100.0100 ####[facility] [address] [place], [address] Result Comment: Canc elled via OM: Order cancelled - Patient discharged Performed By: #### L 500.4050 ####[facility] [address] [place], [address] EST GFR Normal >60 [facility] Comment on above: Result Comment: Canc elled via OM: MD Ordered Performed By: #### L 500.2500, L100.0100 ####[facility] [address] [place], [address] Result Comment: Canc elled via OM: Order cancelled - Patient discharged Performed By: #### L 500.4050 ####[facility] [address] [place], [address] EST GFR - AA Normal >60 [facility] Comment on above: Result Comment: Canc elled via OM: MD Ordered Performed By: #### L 500.2500, L100.0100 ####[facility] [address] [place], [address] Result Comment: Canc elled via OM: Order cancelled - Patient discharged Performed By: #### L 500.4050 ####[facility] [address] [place], [address] GAP Normal 5-15 [facility] Comment on above: Result Comment: Canc elled via OM: MD Ordered Performed By: #### L 500.2500, L100.0100 ####[facility] [address] [place], [address] Result Comment: Canc elled via OM: Order cancelled - Patient discharged Performed By: #### L 500.4050 ####[facility] [address] [place], [address] GLU Normal 74-106 [facility] Comment on above: Result Comment: Canc elled via OM: MD Ordered Performed By: #### L 500.2500, L100.0100 ####[facility] [address] [place], [address] Result Comment: Canc elled via OM: Order cancelled - Patient discharged Performed By: #### L 500.4050 ####[facility] [address] [place], [address] Potassium Normal 3.5-5.1 [facility] Comment on above: Result Comment: Canc elled via OM: MD Ordered Performed By: #### L 500.2500, L100.0100 ####[facility] [address] [place], [address] Result Comment: Canc elled via OM: Order cancelled - Patient discharged Performed By: #### L 500.4050 ####[facility] [address] [place], [address] Basic Metabolic Profile (BMP) Normal 136-145 [facility] Comment on above: Result Comment: Canc elled via OM: MD Ordered Performed By: #### L 500.2500, L100.0100 ####[facility] [address] [place], [address] Result Comment: Canc elled via OM: Order cancelled - Patient discharged Performed By: #### L 500.4050 ####[facility] [address] [place], [address] CBC W/Diff, Automatedon 07-1 9-2024 Absolute Neut Normal 2.0-7.7 [facility] Comment on above: Result Comment: Canc elled via OM: Order cancelled - Patient discharged Performed By: #### L 500.2500, L100.0100 ####[facility] [address] [place], [address] HCT Normal 37-47 [facility] Comment on above: Result Comment: Canc elled via OM: Order cancelled - Patient discharged Performed By: #### L 500.2500, L100.0100 ####[facility] [address] [place], [address] HGB Normal 12.0-15.0 [facility] Comment on above: Result Comment: Canc elled via OM: Order cancelled - Patient discharged Performed By: #### L 500.2500, L100.0100 ####[facility] [address] [place], [address] MCH Normal 27.0-32.0 [facility] Comment on above: Result Comment: Canc elled via OM: Order cancelled - Patient discharged Performed By: #### L 500.2500, L100.0100 ####[facility] [address] [place], [address] MCHC Normal 32-36 [facility] Comment on above: Result Comment: Canc elled via OM: Order cancelled - Patient discharged Performed By: #### L 500.2500, L100.0100 ####[facility] [address] [place], [address] MCV Normal 81-99 [facility] Comment on above: Result Comment: Canc elled via OM: Order cancelled - Patient discharged Performed By: #### L 500.2500, L100.0100 ####[facility] [address] [place], [address] NEUT% Normal 47-70 [facility] Comment on above: Result Comment: Canc elled via OM: Order cancelled - Patient discharged Performed By: #### L 500.2500, L100.0100 ####[facility] [address] [place], [address] PLT Normal 150-450 [facility] Comment on above: Result Comment: Canc elled via OM: Order cancelled - Patient discharged Performed By: #### L 500.2500, L100.0100 ####[facility] [address] [place], [address] RBC Normal 4.2-5.4 [facility] Comment on above: Result Comment: Canc elled via OM: Order cancelled - Patient discharged Performed By: #### L 500.2500, L100.0100 ####[facility] [address] [place], [address] RDW CV Normal 11.6-14.6 [facility] Comment on above: Result Comment: Canc elled via OM: Order cancelled - Patient discharged Performed By: #### L 500.2500, L100.0100 ####[facility] [address] [place], [address] RDW SD Normal 35.1-43.9 [facility] Comment on above: Result Comment: Canc elled via OM: Order cancelled - Patient discharged Performed By: #### L 500.2500, L100.0100 ####[facility] [address] [place], [address] WBC Normal 4.4-11.0 [facility] Comment on above: Result Comment: Canc elled via OM: Order cancelled - Patient discharged Performed By: #### L 500.2500, L100.0100 ####[facility] [address] [place], [address] Comprehensive Metabolic Prof ilon 11-20-2023 ALB Normal 3.2-5.0 [facility] Comment on above: Result Comment: Canc elled via OM: Order cancelled - Patient discharged Performed By: #### L 500.4050 ####[facility] [address] [place], [address] ALK P Normal 45-117 [facility] Comment on above: Result Comment: Canc elled via OM: Order cancelled - Patient discharged Performed By: #### L 500.4050 ####[facility] [address] [place], [address] ALT Normal 13-56 [facility] Comment on above: Result Comment: Canc elled via OM: Order cancelled - Patient discharged Performed By: #### L 500.4050 ####[facility] [address] [place], [address] AST Normal 15-37 [facility] Comment on above: Result Comment: Canc elled via OM: Order cancelled - Patient discharged Performed By: #### L 500.4050 ####[facility] [address] [place], [address] T BILI Normal 0.20-1.00 [facility] Comment on above: Result Comment: Canc elled via OM: Order cancelled - Patient discharged Performed By: #### L 500.4050 ####[facility] [address] [place], [address] T PROT Normal 6.4-8.2 [facility] Comment on above: Result Comment: Canc elled via OM: Order cancelled - Patient discharged Performed By: #### L 500.4050 ####[facility] [address] [place], [address] CBC W/Diff, Automatedon 07- Absolute Neut Normal 2.0-7.7 [facility] Comment on above: Result Comment: Canc elled via OM: Order cancelled - Patient discharged Performed By: #### L 100.0100, L500.2500 ####[facility] [address] [place], [address] HCT Normal 37-47 [facility] Comment on above: Result Comment: Canc elled via OM: Order cancelled - Patient discharged Performed By: #### L 100.0100, L500.2500 ####[facility] [address] [place], [address] HGB Normal 12.0-15.0 [facility] Comment on above: Result Comment: Canc elled via OM: Order cancelled - Patient discharged Performed By: #### L 100.0100, L500.2500 ####[facility] [address] [place], [address] MCH Normal 27.0-32.0 [facility] Comment on above: Result Comment: Canc elled via OM: Order cancelled - Patient discharged Performed By: #### L 100.0100, L500.2500 ####[facility] [address] [place], [address] MCHC Normal 32-36 [facility] Comment on above: Result Comment: Canc elled via OM: Order cancelled - Patient discharged Performed By: #### L 100.0100, L500.2500 ####[facility] [address] [place], [address] MCV Normal 81-99 [facility] Comment on above: Result Comment: Canc elled via OM: Order cancelled - Patient discharged Performed By: #### L 100.0100, L500.2500 ####[facility] [address] [place], [address] NEUT% Normal 47-70 [facility] Comment on above: Result Comment: Canc elled via OM: Order cancelled - Patient discharged Performed By: #### L 100.0100, L500.2500 ####[facility] [address] [place], [address] PLT Normal 150-450 [facility] Comment on above: Result Comment: Canc elled via OM: Order cancelled - Patient discharged Performed By: #### L 100.0100, L500.2500 ####[facility] [address] [place], [address] RBC Normal 4.2-5.4 [facility] Comment on above: Result Comment: Canc elled via OM: Order cancelled - Patient discharged Performed By: #### L 100.0100, L500.2500 ####[facility] [address] [place], [address] RDW CV Normal 11.6-14.6 [facility] Comment on above: Result Comment: Canc elled via OM: Order cancelled - Patient discharged Performed By: #### L 100.0100, L500.2500 ####[facility] [address] [place], [address] RDW SD Normal 35.1-43.9 [facility] Comment on above: Result Comment: Canc elled via OM: Order cancelled - Patient discharged Performed By: #### L 100.0100, L500.2500 ####[facility] [address] [place], [address] WBC Normal 4.4-11.0 [facility] Comment on above: Result Comment: Canc elled via OM: Order cancelled - Patient discharged Performed By: #### L 100.0100, L500.2500 ####[facility] [address] [place], [address] Comprehensive Metabolic Prof ilon 11-19-2023 ALB Normal 3.2-5.0 [facility] Comment on above: Result Comment: Canc elled via OM: Order cancelled - Patient discharged Performed By: #### L 500.4050 ####[facility] [address] [place], [address] ALK P Normal 45-117 [facility] Comment on above: Result Comment: Canc elled via OM: Order cancelled - Patient discharged Performed By: #### L 500.4050 ####[facility] [address] [place], [address] ALT Normal 13-56 [facility] Comment on above: Result Comment: Canc elled via OM: Order cancelled - Patient discharged Performed By: #### L 500.4050 ####[facility] [address] [place], [address] AST Normal 15-37 [facility] Comment on above: Result Comment: Canc elled via OM: Order cancelled - Patient discharged Performed By: #### L 500.4050 ####[facility] [address] [place], [address] BUN Normal 7-18 [facility] Comment on above: Result Comment: Canc elled via OM: Order cancelled - Patient discharged Performed By: #### L 500.4050 ####[facility] [address] [place], [address] Result Comment: Canc elled via OM: MD Ordered Performed By: #### L 100.0100, L500.2500 ####[facility] [address] [place], [address] BUN/CRE Normal 10-20 [facility] Comment on above: Result Comment: Canc elled via OM: Order cancelled - Patient discharged Performed By: #### L 500.4050 ####[facility] [address] [place], [address] Result Comment: Canc elled via OM: MD Ordered Performed By: #### L 100.0100, L500.2500 ####[facility] [address] [place], [address] CA,Total Normal 8.5-10.1 [facility] Comment on above: Result Comment: Canc elled via OM: Order cancelled - Patient discharged Performed By: #### L 500.4050 ####[facility] [address] [place], [address] Result Comment: Canc elled via OM: MD Ordered Performed By: #### L 100.0100, L500.2500 ####[facility] [address] [place], [address] CL Normal 98-107 [facility] Comment on above: Result Comment: Canc elled via OM: Order cancelled - Patient discharged Performed By: #### L 500.4050 ####[facility] [address] [place], [address] Result Comment: Canc elled via OM: MD Ordered Performed By: #### L 100.0100, L500.2500 ####[facility] [address] [place], [address] CO2 Normal 21.0-32.0 [facility] Comment on above: Result Comment: Canc elled via OM: Order cancelled - Patient discharged Performed By: #### L 500.4050 ####[facility] [address] [place], [address] Result Comment: Canc elled via OM: MD Ordered Performed By: #### L 100.0100, L500.2500 ####[facility] [address] [place], [address] CREAT,SERUM Normal 0.55-1.02 [facility] Comment on above: Result Comment: Canc elled via OM: Order cancelled - Patient discharged Performed By: #### L 500.4050 ####[facility] [address] [place], [address] Result Comment: Canc elled via OM: MD Ordered Performed By: #### L 100.0100, L500.2500 ####[facility] [address] [place], [address] EST GFR Normal >60 [facility] Comment on above: Result Comment: Canc elled via OM: Order cancelled - Patient discharged Performed By: #### L 500.4050 ####[facility] [address] [place], [address] Result Comment: Canc elled via OM: MD Ordered Performed By: #### L 100.0100, L500.2500 ####[facility] [address] [place], [address] EST GFR - AA Normal >60 [facility] Comment on above: Result Comment: Canc elled via OM: Order cancelled - Patient discharged Performed By: #### L 500.4050 ####[facility] [address] [place], [address] Result Comment: Canc elled via OM: MD Ordered Performed By: #### L 100.0100, L500.2500 ####[facility] [address] [place], [address] GAP Normal 5-15 [facility] Comment on above: Result Comment: Canc elled via OM: Order cancelled - Patient discharged Performed By: #### L 500.4050 ####[facility] [address] [place], [address] Result Comment: Canc elled via OM: MD Ordered Performed By: #### L 100.0100, L500.2500 ####[facility] [address] [place], [address] GLU Normal 74-106 [facility] Comment on above: Result Comment: Canc elled via OM: Order cancelled - Patient discharged Performed By: #### L 500.4050 ####[facility] [address] [place], [address] Result Comment: Canc elled via OM: MD Ordered Performed By: #### L 100.0100, L500.2500 ####[facility] [address] [place], [address] Potassium Normal 3.5-5.1 [facility] Comment on above: Result Comment: Canc elled via OM: Order cancelled - Patient discharged Performed By: #### L 500.4050 ####[facility] [address] [place], [address] Result Comment: Canc elled via OM: MD Ordered Performed By: #### L 100.0100, L500.2500 ####[facility] [address] [place], [address] T BILI Normal 0.20-1.00 [facility] Comment on above: Result Comment: Canc elled via OM: Order cancelled - Patient discharged Performed By: #### L 500.4050 ####[facility] [address] [place], [address] T PROT Normal 6.4-8.2 [facility] Comment on above: Result Comment: Canc elled via OM: Order cancelled - Patient discharged Performed By: #### L 500.4050 ####[facility] [address] [place], [address] Comprehensive Metabolic Profil Normal 136-145 [facility] Comment on above: Result Comment: Canc elled via OM: Order cancelled - Patient discharged Performed By: #### L 500.4050 ####[facility] [address] [place], [address] Result Comment: Canc elled via OM: MD Ordered Performed By: #### L 100.0100, L500.2500 ####[facility] [address] [place], [address] Urine Cultureon 11-19-2023 URC Normal [facility] Comment on above: Performed By: #### L 400.0001, M100.2200 ####[facility] [address] [place], [address] Bedside Glucoseon 11-18-2023 FINGERSTICK GLU 109 mg/dL High 74-106 [facility] Comment on above: Result Comment: SONAM GEMENT OF PATIENT CARE PER NURSING PROTOCOL Performed By: #### L 501.080 ####[facility] [address] [place], [address] FINGERSTICK GLU 95 mg/dL Normal 74-106 [facility] Comment on above: Result Comment: SONAM GEMENT OF PATIENT CARE PER NURSING PROTOCOL Performed By: #### L 501.080 ####[facility] [address] [place], [address] CBC W/Diff, Automatedon 11-01 Absolute Lymph 1.27 X10 3/uL Normal 0.83-4.51 [facility] Comment on above: Performed By: #### L 500.4050, L501.6710, L100.0100, L101.9900 ####[facility] [address] [place], [address] Absolute Neut 3.5 X10 3/uL Normal 2.0-7.7 [facility] Comment on above: Performed By: #### L 500.4050, L501.6710, L100.0100, L101.9900 ####[facility] [address] [place], [address] Basophils/100 WBC (Bld) 0.2 % Normal 0-1 [facility] Comment on above: Performed By: #### L 500.4050, L501.6710, L100.0100, L101.9900 ####[facility] [address] [place], [address] Eosinophils/100 WBC (Bld) 1.2 % Normal 0-5 [facility] Comment on above: Performed By: #### L 500.4050, L501.6710, L100.0100, L101.9900 ####[facility] [address] [place], [address] Erythrocyte distribution width (RBC) [Ratio] 12.6 % Normal 11.6-14.6 [facility] Comment on above: Performed By: #### L 500.4050, L501.6710, L100.0100, L101.9900 ####[facility] [address] [place], [address] Hematocrit (Bld) [Volume fraction] 30.0 % Low 37-47 [facility] Comment on above: Performed By: #### L 500.4050, L501.6710, L100.0100, L101.9900 ####[facility] [address] [place], [address] Hemoglobin (Bld) [Mass/Vol] 10.0 g/dL Low 12.0-15.0 [facility] Comment on above: Performed By: #### L 500.4050, L501.6710, L100.0100, L101.9900 ####[facility] [address] [place], [address] IG% 0.600 Normal 0.0-0.9 [facility] Comment on above: Result Comment: IG% - Immature Granulocytes (promyelocytes, myelocytes andmetamyelocytes) > 1% indicates that a LEFT SHIFT is Present. Performed By: #### L 500.4050, L501.6710, L100.0100, L101.9900 ####[facility] [address] [place], [address] Lymphocytes/100 WBC (Bld) 24.9 % Normal 19-41 [facility] Comment on above: Performed By: #### L 500.4050, L501.6710, L100.0100, L101.9900 ####[facility] [address] [place], [address] MCH (RBC) [Entitic mass] 32.3 pg High 27.0-32.0 [facility] Comment on above: Performed By: #### L 500.4050, L501.6710, L100.0100, L101.9900 ####[facility] [address] [place], [address] MCHC (RBC) [Mass/Vol] 33.3 g/dL Normal 32-36 [facility] Comment on above: Performed By: #### L 500.4050, L501.6710, L100.0100, L101.9900 ####[facility] [address] [place], [address] MCV (RBC) [Entitic vol] 96.8 fL Normal 81-99 [facility] Comment on above: Performed By: #### L 500.4050, L501.6710, L100.0100, L101.9900 ####[facility] [address] [place], [address] Monocytes/100 WBC (Bld) 4.7 % Normal 0-10 [facility] Comment on above: Performed By: #### L 500.4050, L501.6710, L100.0100, L101.9900 ####[facility] [address] [place], [address] Neutrophils/100 WBC (Bld) 68.4 % Normal 47-70 [facility] Comment on above: Performed By: #### L 500.4050, L501.6710, L100.0100, L101.9900 ####[facility] [address] [place], [address] Nucleated RBC (Bld) [#/Vol] 0 10*3/uL Normal 0-5 [facility] Comment on above: Performed By: #### L 500.4050, L501.6710, L100.0100, L101.9900 ####[facility] [address] [place], [address] Platelet mean volume (Bld) [Entitic vol] 11.9 fL Normal 6.2-12.0 [facility] Comment on above: Performed By: #### L 500.4050, L501.6710, L100.0100, L101.9900 ####[facility] [address] [place], [address] Platelets (Bld) [#/Vol] 153 10*3/uL Normal 150-450 [facility] Comment on above: Performed By: #### L 500.4050, L501.6710, L100.0100, L101.9900 ####[facility] [address] [place], [address] RBC (Bld) [#/Vol] 3.10 10*6/uL Low 4.2-5.4 [facility] Comment on above: Performed By: #### L 500.4050, L501.6710, L100.0100, L101.9900 ####[facility] [address] [place], [address] RDW SD 44.5 fl High 35.1-43.9 [facility] Comment on above: Performed By: #### L 500.4050, L501.6710, L100.0100, L101.9900 ####[facility] [address] [place], [address] WBC (Bld) [#/Vol] 5.1 10*3/uL Normal 4.4-11.0 [facility] Comment on above: Performed By: #### L 500.4050, L501.6710, L100.0100, L101.9900 ####[facility] [address] [place], [address] CRPon 11-18-2023 C-REACTIVE PROT 155.00 mg/L High 0.0-3.0 [facility] Comment on above: Result Comment: C-Re active Protein (CRP) provides useful information for thediagnosis, therapy and monitoring of inflammatory processesand associated diseases. For the evaluation of Relative Riskfor Cardiovascular Disease, a High Sensitivity CRP (HSCRP)should be ordered. Performed By: #### L 500.4050, L501.6710, L100.0100, L101.9900 ####[facility] [address] [place], [address] Comprehensive Metabolic Prof ilon 11-18-2023 Albumin [Mass/Vol] 2.5 g/dL Low 3.2-5.0 [facility] Comment on above: Performed By: #### L 500.4050, L501.6710, L100.0100, L101.9900 ####[facility] [address] [place], [address] Albumin/Globulin [Mass ratio] 0.7 {ratio} Low 0.9-2.4 [facility] Comment on above: Performed By: #### L 500.4050, L501.6710, L100.0100, L101.9900 ####[facility] [address] [place], [address] ALK P 73 U/L Normal 45-117 [facility] Comment on above: Performed By: #### L 500.4050, L501.6710, L100.0100, L101.9900 ####[facility] [address] [place], [address] ALT [Catalytic activity/Vol] 34 U/L Normal 13-56 [facility] Comment on above: Performed By: #### L 500.4050, L501.6710, L100.0100, L101.9900 ####[facility] [address] [place], [address] AST [Catalytic activity/Vol] 35 U/L Normal 15-37 [facility] Comment on above: Performed By: #### L 500.4050, L501.6710, L100.0100, L101.9900 ####[facility] [address] [place], [address] Bilirubin [Mass/Vol] 0.30 mg/dL Normal 0.20-1.00 [facility] Comment on above: Result Comment: For patients on eltrombopag therapy, use of Dimension [place] TBIL is not recommended. Performed By: #### L 500.4050, L501.6710, L100.0100, L101.9900 ####[facility] [address] [place], [address] BUN/CRE 27.4 RATIO High 10-20 [facility] Comment on above: Performed By: #### L 500.4050, L501.6710, L100.0100, L101.9900 ####[facility] [address] [place], [address] CA,Total 8.7 mg/dL Normal 8.5-10.1 [facility] Comment on above: Performed By: #### L 500.4050, L501.6710, L100.0100, L101.9900 ####[facility] [address] [place], [address] Chloride [Moles/Vol] 105 mmol/L Normal 98-107 [facility] Comment on above: Performed By: #### L 500.4050, L501.6710, L100.0100, L101.9900 ####[facility] [address] [place], [address] CO2 [Moles/Vol] 25.0 mmol/L Normal 21.0-32.0 [facility] Comment on above: Performed By: #### L 500.4050, L501.6710, L100.0100, L101.9900 ####[facility] [address] [place], [address] Creatinine [Mass/Vol] 0.91 mg/dL Normal 0.55-1.02 [facility] Comment on above: Result Comment: The validity of the calculated GFR GFRAA in patients over70 years has not been determined. Clinical correlation isessential. Performed By: #### L 500.4050, L501.6710, L100.0100, L101.9900 ####[facility] [address] [place], [address] ECRCL 54.83 ml/min Normal [facility] Comment on above: Performed By: #### L 500.4050, L501.6710, L100.0100, L101.9900 ####[facility] [address] [place], [address] EST GFR - AA 78 mL/min Normal >60 [facility] Comment on above: Result Comment: Afri can Finnish GFR Calc Performed By: #### L 500.4050, L501.6710, L100.0100, L101.9900 ####[facility] [address] [place], [address] GAP 8 Normal 5-15 [facility] Comment on above: Performed By: #### L 500.4050, L501.6710, L100.0100, L101.9900 ####[facility] [address] [place], [address] GFR/1.73 sq M.predicted among non-blacks MDRD (S/P/Bld) [Vol rate/Area] 65 mL/min/{1.73_m2} Normal >60 [facility] Comment on above: Result Comment: Non- GFR Calc Performed By: #### L 500.4050, L501.6710, L100.0100, L101.9900 ####[facility] [address] [place], [address] Globulin (S) [Mass/Vol] 3.7 g/dL Normal 2.2-4.2 [facility] Comment on above: Performed By: #### L 500.4050, L501.6710, L100.0100, L101.9900 ####[facility] [address] [place], [address] Glucose [Mass/Vol] 102 mg/dL Normal 74-106 [facility] Comment on above: Result Comment: Fast ing Glucose result from 100 to 125 mg/dLsuggests IMPAIRED HOMEOSTASIS per A.D.A. criteria. Performed By: #### L 500.4050, L501.6710, L100.0100, L101.9900 ####[facility] [address] [place], [address] Potassium [Moles/Vol] 4.0 mmol/L Normal 3.5-5.1 [facility] Comment on above: Performed By: #### L 500.4050, L501.6710, L100.0100, L101.9900 ####[facility] [address] [place], [address] Sodium [Moles/Vol] 138 mmol/L Normal 136-145 [facility] Comment on above: Performed By: #### L 500.4050, L501.6710, L100.0100, L101.9900 ####[facility] [address] [place], [address] T PROT 6.2 g/dL Low 6.4-8.2 [facility] Comment on above: Performed By: #### L 500.4050, L501.6710, L100.0100, L101.9900 ####[facility] [address] [place], [address] Urea nitrogen [Mass/Vol] 25 mg/dL High 7-18 [facility] Comment on above: Performed By: #### L 500.4050, L501.6710, L100.0100, L101.9900 ####[facility] [address] [place], [address] Discharge Instructionon 11-01 Discharge Instruction Normal [facility] Erythrocyte Sed Rateon 11-17 SED RATE 25 mm/hr Normal 0-30 [facility] Comment on above: Performed By: #### L 500.4050, L501.6710, L100.0100, L101.9900 ####[facility] [address] [place], [address] MR/CON.PCM.NEon 11-18-2023 MR/CON.PCM.NE Normal [facility] Ammoniaon 11-17-2023 Ammonia (P) [Moles/Vol] 41.0 umol/L High 11-32 [facility] Comment on above: Performed By: #### L 509.7000, L101.9900, L500.3400, L503.5510, L501.6710 ####[facility] [address] [place], [address] Basic Metabolic Profile (BMP )on 11-17-2023 BUN/CRE 25.2 RATIO High 10-20 [facility] Comment on above: Performed By: #### L 100.0100, L501.8100, L500.2500 ####[facility] [address] [place], [address] CA,Total 8.5 mg/dL Normal 8.5-10.1 [facility] Comment on above: Performed By: #### L 100.0100, L501.8100, L500.2500 ####[facility] [address] [place], [address] Chloride [Moles/Vol] 105 mmol/L Normal 98-107 [facility] Comment on above: Performed By: #### L 100.0100, L501.8100, L500.2500 ####[facility] [address] [place], [address] CO2 [Moles/Vol] 26.0 mmol/L Normal 21.0-32.0 [facility] Comment on above: Performed By: #### L 100.0100, L501.8100, L500.2500 ####[facility] [address] [place], [address] Creatinine [Mass/Vol] 1.03 mg/dL High 0.55-1.02 [facility] Comment on above: Result Comment: The validity of the calculated GFR GFRAA in patients over70 years has not been determined. Clinical correlation isessential. Performed By: #### L 100.0100, L501.8100, L500.2500 ####[facility] [address] [place], [address] ECRCL 48.44 ml/min Normal [facility] Comment on above: Performed By: #### L 100.0100, L501.8100, L500.2500 ####[facility] [address] [place], [address] EST GFR - AA 68 mL/min Normal >60 [facility] Comment on above: Result Comment: Afri can Finnish GFR Calc Performed By: #### L 100.0100, L501.8100, L500.2500 ####[facility] [address] [place], [address] GAP 5 Normal 5-15 [facility] Comment on above: Performed By: #### L 100.0100, L501.8100, L500.2500 ####[facility] [address] [place], [address] GFR/1.73 sq M.predicted among non-blacks MDRD (S/P/Bld) [Vol rate/Area] 56 mL/min/{1.73_m2} Low >60 [facility] Comment on above: Result Comment: Non- GFR Calc Performed By: #### L 100.0100, L501.8100, L500.2500 ####[facility] [address] [place], [address] Glucose [Mass/Vol] 119 mg/dL High 74-106 [facility] Comment on above: Result Comment: Fast ing Glucose result from 100 to 125 mg/dLsuggests IMPAIRED HOMEOSTASIS per A.D.A. criteria. Performed By: #### L 100.0100, L501.8100, L500.2500 ####[facility] [address] [place], [address] Potassium [Moles/Vol] 4.2 mmol/L Normal 3.5-5.1 [facility] Comment on above: Performed By: #### L 100.0100, L501.8100, L500.2500 ####[facility] [address] [place], [address] Sodium [Moles/Vol] 136 mmol/L Normal 136-145 [facility] Comment on above: Performed By: #### L 100.0100, L501.8100, L500.2500 ####[facility] [address] [place], [address] Urea nitrogen [Mass/Vol] 26 mg/dL High 7-18 [facility] Comment on above: Performed By: #### L 100.0100, L501.8100, L500.2500 ####[facility] [address] [place], [address] Bedside Glucoseon 11-17-2023 FINGERSTICK GLU 94 mg/dL Normal 74-106 [facility] Comment on above: Result Comment: SONAM GEMENT OF PATIENT CARE PER NURSING PROTOCOL Performed By: #### L 501.080 ####[facility] [address] [place], [address] FINGERSTICK GLU 129 mg/dL High 74-106 [facility] Comment on above: Result Comment: SONAM GEMENT OF PATIENT CARE PER NURSING PROTOCOL Performed By: #### L 501.080 ####[facility] [address] [place], [address] FINGERSTICK GLU 146 mg/dL High 74-106 [facility] Comment on above: Result Comment: SONAM GEMENT OF PATIENT CARE PER NURSING PROTOCOL Performed By: #### L 501.080 ####[facility] [address] [place], [address] FINGERSTICK GLU 101 mg/dL Normal 74-106 [facility] Comment on above: Result Comment: SONAM GEMENT OF PATIENT CARE PER NURSING PROTOCOL Performed By: #### L 501.080 ####[facility] [address] [place], [address] CBC W/Diff, Automatedon 07-05 09-2023 Absolute Lymph 1.45 X10 3/uL Normal 0.83-4.51 [facility] Comment on above: Performed By: #### L 100.0100, L501.8100, L500.2500 ####[facility] [address] [place], [address] Absolute Neut 4.8 X10 3/uL Normal 2.0-7.7 [facility] Comment on above: Performed By: #### L 100.0100, L501.8100, L500.2500 ####[facility] [address] [place], [address] Basophils/100 WBC (Bld) 0.1 % Normal 0-1 [facility] Comment on above: Performed By: #### L 100.0100, L501.8100, L500.2500 ####[facility] [address] [place], [address] Eosinophils/100 WBC (Bld) 1.0 % Normal 0-5 [facility] Comment on above: Performed By: #### L 100.0100, L501.8100, L500.2500 ####[facility] [address] [place], [address] Erythrocyte distribution width (RBC) [Ratio] 12.9 % Normal 11.6-14.6 [facility] Comment on above: Performed By: #### L 100.0100, L501.8100, L500.2500 ####[facility] [address] [place], [address] Hematocrit (Bld) [Volume fraction] 30.6 % Low 37-47 [facility] Comment on above: Performed By: #### L 100.0100, L501.8100, L500.2500 ####[facility] [address] [place], [address] Hemoglobin (Bld) [Mass/Vol] 10.0 g/dL Low 12.0-15.0 [facility] Comment on above: Performed By: #### L 100.0100, L501.8100, L500.2500 ####[facility] [address] [place], [address] IG% 0.600 Normal 0.0-0.9 [facility] Comment on above: Result Comment: IG% - Immature Granulocytes (promyelocytes, myelocytes andmetamyelocytes) > 1% indicates that a LEFT SHIFT is Present. Performed By: #### L 100.0100, L501.8100, L500.2500 ####[facility] [address] [place], [address] Lymphocytes/100 WBC (Bld) 20.3 % Normal 19-41 [facility] Comment on above: Performed By: #### L 100.0100, L501.8100, L500.2500 ####[facility] [address] [place], [address] MCH (RBC) [Entitic mass] 32.6 pg High 27.0-32.0 [facility] Comment on above: Performed By: #### L 100.0100, L501.8100, L500.2500 ####[facility] [address] [place], [address] MCHC (RBC) [Mass/Vol] 32.7 g/dL Normal 32-36 [facility] Comment on above: Performed By: #### L 100.0100, L501.8100, L500.2500 ####[facility] [address] [place], [address] MCV (RBC) [Entitic vol] 99.7 fL High 81-99 [facility] Comment on above: Performed By: #### L 100.0100, L501.8100, L500.2500 ####[facility] [address] [place], [address] Monocytes/100 WBC (Bld) 10.4 % High 0-10 [facility] Comment on above: Performed By: #### L 100.0100, L501.8100, L500.2500 ####[facility] [address] [place], [address] Neutrophils/100 WBC (Bld) 67.6 % Normal 47-70 [facility] Comment on above: Performed By: #### L 100.0100, L501.8100, L500.2500 ####[facility] [address] [place], [address] Nucleated RBC (Bld) [#/Vol] 0 10*3/uL Normal 0-5 [facility] Comment on above: Performed By: #### L 100.0100, L501.8100, L500.2500 ####[facility] [address] [place], [address] Platelet mean volume (Bld) [Entitic vol] 11.3 fL Normal 6.2-12.0 [facility] Comment on above: Performed By: #### L 100.0100, L501.8100, L500.2500 ####[facility] [address] [place], [address] Platelets (Bld) [#/Vol] 145 10*3/uL Low 150-450 [facility] Comment on above: Performed By: #### L 100.0100, L501.8100, L500.2500 ####[facility] [address] [place], [address] RBC (Bld) [#/Vol] 3.07 10*6/uL Low 4.2-5.4 [facility] Comment on above: Performed By: #### L 100.0100, L501.8100, L500.2500 ####[facility] [address] [place], [address] RDW SD 46.5 fl High 35.1-43.9 [facility] Comment on above: Performed By: #### L 100.0100, L501.8100, L500.2500 ####[facility] [address] [place], [address] WBC (Bld) [#/Vol] 7.1 10*3/uL Normal 4.4-11.0 [facility] Comment on above: Performed By: #### L 100.0100, L501.8100, L500.2500 ####[facility] [address] [place], [address] CRPon 11-17-2023 C-REACTIVE PROT 161.00 mg/L High 0.0-3.0 [facility] Comment on above: Result Comment: C-Re active Protein (CRP) provides useful information for thediagnosis, therapy and monitoring of inflammatory processesand associated diseases. For the evaluation of Relative Riskfor Cardiovascular Disease, a High Sensitivity CRP (HSCRP)should be ordered. Performed By: #### L 509.7000, L101.9900, L500.3400, L503.5510, L501.6710 ####[facility] [id number] [place], [place], [id number] Erythrocyte Sed Rateon 11-16 SED RATE 19 mm/hr Normal 0-30 [facility] Comment on above: Performed By: #### L 509.7000, L101.9900, L500.3400, L503.5510, L501.6710 ####[facility] [address] [place], [address] Liver Profileon 11-17-2023 Albumin [Mass/Vol] 2.6 g/dL Low 3.2-5.0 [facility] Comment on above: Performed By: #### L 509.7000, L101.9900, L500.3400, L503.5510, L501.6710 ####[facility] [address] [place], [address] ALK P 50 U/L Normal 45-117 [facility] Comment on above: Performed By: #### L 509.7000, L101.9900, L500.3400, L503.5510, L501.6710 ####[facility] [address] [place], [address] ALT [Catalytic activity/Vol] 14 U/L Normal 13-56 [facility] Comment on above: Performed By: #### L 509.7000, L101.9900, L500.3400, L503.5510, L501.6710 ####[facility] [address] [place], [address] AST [Catalytic activity/Vol] 10 U/L Low 15-37 [facility] Comment on above: Performed By: #### L 509.7000, L101.9900, L500.3400, L503.5510, L501.6710 ####[facility] [address] [place], [address] Bilirubin [Mass/Vol] 0.30 mg/dL Normal 0.20-1.00 [facility] Comment on above: Result Comment: For patients on eltrombopag therapy, use of Dimension [place] TBIL is not recommended. Performed By: #### L 509.7000, L101.9900, L500.3400, L503.5510, L501.6710 ####[facility] [address] [place], [address] Bilirubin.direct [Mass/Vol] 0.11 mg/dL Normal 0.00-0.30 [facility] Comment on above: Performed By: #### L 509.7000, L101.9900, L500.3400, L503.5510, L501.6710 ####[facility] [address] [place], [address] Globulin (S) [Mass/Vol] 3.7 g/dL Normal 2.2-4.2 [facility] Comment on above: Performed By: #### L 509.7000, L101.9900, L500.3400, L503.5510, L501.6710 ####[facility] [address] [place], [address] T PROT 6.3 g/dL Low 6.4-8.2 [facility] Comment on above: Performed By: #### L 509.7000, L101.9900, L500.3400, L503.5510, L501.6710 ####[facility] [address] [place], [address] Procalcitoninon 11-17-2023 Procalcitonin 0.08 ng/mL Normal 0.00-0.09 [facility] Comment on above: Result Comment: A pr [...] #### L 509.7000, L101.9900, L500.3400, L503.5510, L501.6710 ####[facility] [address] [place], [address] Urinalysis, Completeon 11-16 WBC 0-5 SEEN Normal 0-5 [facility] Comment on above: Order Comment: CLEAN CATCH Performed By: #### L 400.0001, M1 ####[facility] [address] [place], [address] BACTERIA 0 SEEN Normal None Seen [facility] Comment on above: Order Comment: CLEAN CATCH Performed By: #### L 400.0001, M1.0 ####[facility] [address] [place], [address] EPI,SQUAMOUS 0 SEEN Normal 5-10 [facility] Comment on above: Order Comment: CLEAN CATCH Performed By: #### L 400.0001, M1.0 ####[facility] [address] [place], [address] Mucus Ql (Urine sed) 0 SEEN Normal [facility] Comment on above: Order Comment: CLEAN CATCH Performed By: #### L 400.0001, M1.2199 ####[facility] [address] [place], [address] RBC 0 SEEN Normal 0-5 [facility] Comment on above: Order Comment: CLEAN CATCH Performed By: #### L 400.0001, M100.2200 ####[facility] [address] [place], [address] Valproic Acid (Depakene) Lev tommy 11-17-2023 VALPROIC ACID 131 ug/mL High 50-100 [facility] Comment on above: Order Comment: Comme nts: before AM depakote Performed By: #### L 100.0100, L501.8100, L500.2500 ####[facility] [address] [place], [address] Basic Metabolic Profile (BMP )on 11-16-2023 BUN/CRE 23.7 RATIO High 10-20 [facility] Comment on above: Performed By: #### L 501.5200, L500.2500, L100.0100, L501.2300, L501.9985 ####[facility] [address] [place], [address] CA,Total 8.5 mg/dL Normal 8.5-10.1 [facility] Comment on above: Performed By: #### L 501.5200, L500.2500, L100.0100, L501.2300, L501.9985 ####[facility] [address] [place], [address] Chloride [Moles/Vol] 105 mmol/L Normal 98-107 [facility] Comment on above: Performed By: #### L 501.5200, L500.2500, L100.0100, L501.2300, L501.9985 ####[facility] [address] [place], [address] CO2 [Moles/Vol] 26.0 mmol/L Normal 21.0-32.0 [facility] Comment on above: Performed By: #### L 501.5200, L500.2500, L100.0100, L501.2300, L501.9985 ####[facility] [address] [place], [address] Creatinine [Mass/Vol] 0.84 mg/dL Normal 0.55-1.02 [facility] Comment on above: Result Comment: The validity of the calculated GFR GFRAA in patients over70 years has not been determined. Clinical correlation isessential. Performed By: #### L 501.5200, L500.2500, L100.0100, L501.2300, L501.9985 ####[facility] [address] [place], [address] ECRCL 59.48 ml/min Normal [facility] Comment on above: Performed By: #### L 501.5200, L500.2500, L100.0100, L501.2300, L501.9985 ####[facility] [address] [place], [address] EST GFR - AA 86 mL/min Normal >60 [facility] Comment on above: Result Comment: Afri can Finnish GFR Calc Performed By: #### L 501.5200, L500.2500, L100.0100, L501.2300, L501.9985 ####[facility] [address] [place], [address] GAP 6 Normal 5-15 [facility] Comment on above: Performed By: #### L 501.5200, L500.2500, L100.0100, L501.2300, L501.9985 ####[facility] [address] [place], [address] GFR/1.73 sq M.predicted among non-blacks MDRD (S/P/Bld) [Vol rate/Area] 71 mL/min/{1.73_m2} Normal >60 [facility] Comment on above: Result Comment: Non- GFR Calc Performed By: #### L 501.5200, L500.2500, L100.0100, L501.2300, L501.9985 ####[facility] [address] [place], [address] Glucose [Mass/Vol] 121 mg/dL High 74-106 [facility] Comment on above: Result Comment: Fast ing Glucose result from 100 to 125 mg/dLsuggests IMPAIRED HOMEOSTASIS per A.D.A. criteria. Performed By: #### L 501.5200, L500.2500, L100.0100, L501.2300, L501.9985 ####[facility] [address], [address] Potassium [Moles/Vol] 4.1 mmol/L Normal 3.5-5.1 [facility] Comment on above: Performed By: #### L 501.5200, L500.2500, L100.0100, L501.2300, L501.9985 ####[facility] [address] [place], [address] Sodium [Moles/Vol] 137 mmol/L Normal 136-145 [facility] Comment on above: Performed By: #### L 501.5200, L500.2500, L100.0100, L501.2300, L501.9985 ####[facility] [address] [place], [address] Urea nitrogen [Mass/Vol] 20 mg/dL High 7-18 [facility] Comment on above: Performed By: #### L 501.5200, L500.2500, L100.0100, L501.2300, L501.9985 ####[facility] [address] [place], [address] Bedside Glucoseon 11-16-2023 FINGERSTICK GLU 84 mg/dL Normal 74-106 [facility] Comment on above: Result Comment: SONAM GEMENT OF PATIENT CARE PER NURSING PROTOCOL Performed By: #### L 501.080 ####[facility] [address] [place], [address] FINGERSTICK GLU 123 mg/dL High 74-106 [facility] Comment on above: Result Comment: SONAM GEMENT OF PATIENT CARE PER NURSING PROTOCOL Performed By: #### L 501.080 ####[facility] [address] [place], [address] FINGERSTICK GLU 138 mg/dL High 74-106 [facility] Comment on above: Result Comment: SONAM GEMENT OF PATIENT CARE PER NURSING PROTOCOL Performed By: #### L 501.080 ####[facility] [address] [place], [address] FINGERSTICK GLU 106 mg/dL Normal 74-106 [facility] Comment on above: Result Comment: SONAM GEMENT OF PATIENT CARE PER NURSING PROTOCOL Performed By: #### L 501.080 ####[facility] [address] [place], [address] CBC W/Diff, Automatedon 07-05 08-2023 Absolute Lymph 1.49 X10 3/uL Normal 0.83-4.51 [facility] Comment on above: Performed By: #### L 501.5200, L500.2500, L100.0100, L501.2300, L501.9985 ####[facility] [address] [place], [address] Absolute Neut 4.3 X10 3/uL Normal 2.0-7.7 [facility] Comment on above: Performed By: #### L 501.5200, L500.2500, L100.0100, L501.2300, L501.9985 ####[facility] [address] [place], [address] Basophils/100 WBC (Bld) 0.1 % Normal 0-1 [facility] Comment on above: Performed By: #### L 501.5200, L500.2500, L100.0100, L501.2300, L501.9985 ####[facility] [address] [place], [address] Eosinophils/100 WBC (Bld) 1.2 % Normal 0-5 [facility] Comment on above: Performed By: #### L 501.5200, L500.2500, L100.0100, L501.2300, L501.9985 ####[facility] [address] [place], [address] Erythrocyte distribution width (RBC) [Ratio] 13.0 % Normal 11.6-14.6 [facility] Comment on above: Performed By: #### L 501.5200, L500.2500, L100.0100, L501.2300, L501.9985 ####[facility] [address] [place], [address] Hematocrit (Bld) [Volume fraction] 34.7 % Low 37-47 [facility] Comment on above: Performed By: #### L 501.5200, L500.2500, L100.0100, L501.2300, L501.9985 ####[facility] [address] [place], [address] Hemoglobin (Bld) [Mass/Vol] 11.5 g/dL Low 12.0-15.0 [facility] Comment on above: Performed By: #### L 501.5200, L500.2500, L100.0100, L501.2300, L501.9985 ####[facility] [address] [place], [address] IG% 0.100 Normal 0.0-0.9 [facility] Comment on above: Result Comment: IG% - Immature Granulocytes (promyelocytes, myelocytes andmetamyelocytes) > 1% indicates that a LEFT SHIFT is Present. Performed By: #### L 501.5200, L500.2500, L100.0100, L501.2300, L501.9985 ####[facility] [address] [place], [address] Lymphocytes/100 WBC (Bld) 22.0 % Normal 19-41 [facility] Comment on above: Performed By: #### L 501.5200, L500.2500, L100.0100, L501.2300, L501.9985 ####[facility] [address] [place], [address] MCH (RBC) [Entitic mass] 32.8 pg High 27.0-32.0 [facility] Comment on above: Performed By: #### L 501.5200, L500.2500, L100.0100, L501.2300, L501.9985 ####[facility] [address] [place], [address] MCHC (RBC) [Mass/Vol] 33.1 g/dL Normal 32-36 [facility] Comment on above: Performed By: #### L 501.5200, L500.2500, L100.0100, L501.2300, L501.9985 ####[facility] [address] [place], [address] MCV (RBC) [Entitic vol] 98.9 fL Normal 81-99 [facility] Comment on above: Performed By: #### L 501.5200, L500.2500, L100.0100, L501.2300, L501.9985 ####[facility] [address] [place], [address] Monocytes/100 WBC (Bld) 13.9 % High 0-10 [facility] Comment on above: Performed By: #### L 501.5200, L500.2500, L100.0100, L501.2300, L501.9985 ####[facility] [address] [place], [address] Neutrophils/100 WBC (Bld) 62.7 % Normal 47-70 [facility] Comment on above: Performed By: #### L 501.5200, L500.2500, L100.0100, L501.2300, L501.9985 ####[facility] [address] [place], [address] Nucleated RBC (Bld) [#/Vol] 0 10*3/uL Normal 0-5 [facility] Comment on above: Performed By: #### L 501.5200, L500.2500, L100.0100, L501.2300, L501.9985 ####[facility] [address] [place], [address] Platelet mean volume (Bld) [Entitic vol] 11.5 fL Normal 6.2-12.0 [facility] Comment on above: Performed By: #### L 501.5200, L500.2500, L100.0100, L501.2300, L501.9985 ####[facility] [address] [place], [address] Platelets (Bld) [#/Vol] 141 10*3/uL Low 150-450 [facility] Comment on above: Performed By: #### L 501.5200, L500.2500, L100.0100, L501.2300, L501.9985 ####[facility] [address] [place], [address] RBC (Bld) [#/Vol] 3.51 10*6/uL Low 4.2-5.4 [facility] Comment on above: Performed By: #### L 501.5200, L500.2500, L100.0100, L501.2300, L501.9985 ####[facility] [address] [place], [address] RDW SD 47.1 fl High 35.1-43.9 [facility] Comment on above: Performed By: #### L 501.5200, L500.2500, L100.0100, L501.2300, L501.9985 ####[facility] [address] [place], [address] WBC (Bld) [#/Vol] 6.8 10*3/uL Normal 4.4-11.0 [facility] Comment on above: Performed By: #### L 501.5200, L500.2500, L100.0100, L501.2300, L501.9985 ####[facility] [address] [place], [address] Consultation - Orthopedicson 11-16-2023 Consultation - Orthopedics Normal [facility] Echo Completeon 11-16-2023 Echo Complete Normal [facility] Hemoglobin A1con 11-16-2023 HbA1c (Bld) [Mass fraction] 6.3 % High 3.8-5.6 [facility] Comment on above: Result Comment: Norm al < 5.7 % Prediabetic 5.7 - 6.4 % Diabetic >or= 6.5 % Please note range changes. Performed By: #### L 501.5200, L500.2500, L100.0100, L501.2300, L501.9985 ####[facility] [address] [place], [address] M100.019on 11-16-2023 M100.019 Negative Normal [facility] Comment on above: Performed By: #### M 100.019, M100.638 ####[facility] [address] [place], [address] Magnesiumon 11-16-2023 Magnesium [Mass/Vol] 2.1 mg/dL Normal 1.6-2.6 [facility] Comment on above: Performed By: #### L 501.5200, L500.2500, L100.0100, L501.2300, L501.9985 ####[facility] [address] [place], [address] Phosphoruson 11-16-2023 Phosphate [Mass/Vol] 4.0 mg/dL Normal 2.5-4.9 [facility] Comment on above: Performed By: #### L 501.5200, L500.2500, L100.0100, L501.2300, L501.9985 ####[facility] [address] [place], [address] RESPIRATORY PANEL MOLECULARo n 11-16-2023 RP PANEL Normal [facility] Comment on above: Performed By: #### M 100.019, M100.638 ####[facility] [address] [place], [address] Upper Ext Joint Only(Routine )on 11-16-2023 Upper Ext Joint Only(Routine) Normal [facility] Venous Duplex US - Jovani Extre mon 11-16-2023 Venous Duplex US - Jovani Extrem Normal [facility] 12 Lead EKGon 11-15-2023 12 Lead EKG Normal [facility] BNP,B-Type NATRIURETIC PEPTI Lucina 11-15-2023 Natriuretic peptide B (Bld) [Mass/Vol] 6.6 pg/mL Normal 0-100 [facility] Comment on above: Performed By: #### L 503.6620 ####[facility] [address] [place], [address] Basic Metabolic Profile (BMP )on 11-15-2023 BUN/CRE 25.0 RATIO High 10-20 [facility] Comment on above: Order Comment: 1Y Performed By: #### L 500.2500, L300.3900, L501.5425, L100.0100, L501.5200 ####[facility] [address] [place], [address] CA,Total 8.7 mg/dL Normal 8.5-10.1 [facility] Comment on above: Order Comment: 1Y Performed By: #### L 500.2500, L300.3900, L501.5425, L100.0100, L501.5200 ####[facility] [address] [place], [address] Chloride [Moles/Vol] 109 mmol/L High 98-107 [facility] Comment on above: Order Comment: 1Y Performed By: #### L 500.2500, L300.3900, L501.5425, L100.0100, L501.5200 ####[facility] [address] [place], [address] CO2 [Moles/Vol] 21.0 mmol/L Normal 21.0-32.0 [facility] Comment on above: Order Comment: 1Y Performed By: #### L 500.2500, L300.3900, L501.5425, L100.0100, L501.5200 ####[facility] [address] [place], [address] Creatinine [Mass/Vol] 1.04 mg/dL High 0.55-1.02 [facility] Comment on above: Order Comment: 1Y Result Comment: The validity of the calculated GFR GFRAA in patients over70 years has not been determined. Clinical correlation isessential. Performed By: #### L 500.2500, L300.3900, L501.5425, L100.0100, L501.5200 ####[facility] [address] [place], [address] ECRCL 51.32 ml/min Normal [facility] Comment on above: Order Comment: 1Y Performed By: #### L 500.2500, L300.3900, L501.5425, L100.0100, L501.5200 ####[facility] [address] [place], [address] EST GFR - AA 67 mL/min Normal >60 [facility] Comment on above: Order Comment: 1Y Result Comment: Afri can Finnish GFR Calc Performed By: #### L 500.2500, L300.3900, L501.5425, L100.0100, L501.5200 ####[facility] [address] [place], [address] GAP 6 Normal 5-15 [facility] Comment on above: Order Comment: 1Y Performed By: #### L 500.2500, L300.3900, L501.5425, L100.0100, L501.5200 ####[facility] [address] [place], [address] GFR/1.73 sq M.predicted among non-blacks MDRD (S/P/Bld) [Vol rate/Area] 56 mL/min/{1.73_m2} Low >60 [facility] Comment on above: Order Comment: 1Y Result Comment: Non- GFR Calc Performed By: #### L 500.2500, L300.3900, L501.5425, L100.0100, L501.5200 ####[facility] [address] [place], [address] Glucose [Mass/Vol] 140 mg/dL High 74-106 [facility] Comment on above: Order Comment: 1Y Result Comment: Fast ing Glucose result greater than or equal to 126 mg/dLsuggests DIABETES MELLITUS per A.D.A. criteria. Performed By: #### L 500.2500, L300.3900, L501.5425, L100.0100, L501.5200 ####[facility] [address] [place], [address] Potassium [Moles/Vol] 4.5 mmol/L Normal 3.5-5.1 [facility] Comment on above: Order Comment: 1Y Performed By: #### L 500.2500, L300.3900, L501.5425, L100.0100, L501.5200 ####[facility] [address] [place], [address] Sodium [Moles/Vol] 136 mmol/L Normal 136-145 [facility] Comment on above: Order Comment: 1Y Performed By: #### L 500.2500, L300.3900, L501.5425, L100.0100, L501.5200 ####[facility] [address] [place], [address] Urea nitrogen [Mass/Vol] 26 mg/dL High 7-18 [facility] Comment on above: Order Comment: 1Y Performed By: #### L 500.2500, L300.3900, L501.5425, L100.0100, L501.5200 ####[facility] [address] [place], [address] Bedside Glucoseon 11-15-2023 FINGERSTICK GLU 124 mg/dL High 74-106 [facility] Comment on above: Result Comment: SONAM GEMENT OF PATIENT CARE PER NURSING PROTOCOL Performed By: #### L 501.080 ####[facility] [address] [place], [address] FINGERSTICK GLU 107 mg/dL High 74-106 [facility] Comment on above: Result Comment: SONAM GEMENT OF PATIENT CARE PER NURSING PROTOCOL Performed By: #### L 501.080 ####[facility] [address] [place], [address] CBC W/Diff, Automatedon 07- Absolute Lymph 1.34 X10 3/uL Normal 0.83-4.51 [facility] Comment on above: Performed By: #### L 500.2500, L300.3900, L501.5425, L100.0100, L501.5200 ####[facility] [address] [place], [address] Absolute Neut 6.7 X10 3/uL Normal 2.0-7.7 [facility] Comment on above: Performed By: #### L 500.2500, L300.3900, L501.5425, L100.0100, L501.5200 ####[facility] [address] [place], [address] Basophils/100 WBC (Bld) 0.2 % Normal 0-1 [facility] Comment on above: Performed By: #### L 500.2500, L300.3900, L501.5425, L100.0100, L501.5200 ####[facility] [address] [place], [address] Eosinophils/100 WBC (Bld) 0.8 % Normal 0-5 [facility] Comment on above: Performed By: #### L 500.2500, L300.3900, L501.5425, L100.0100, L501.5200 ####[facility] [address] [place], [address] Erythrocyte distribution width (RBC) [Ratio] 13.0 % Normal 11.6-14.6 [facility] Comment on above: Performed By: #### L 500.2500, L300.3900, L501.5425, L100.0100, L501.5200 ####[facility] [address] [place], [address] Hematocrit (Bld) [Volume fraction] 36.5 % Low 37-47 [facility] Comment on above: Performed By: #### L 500.2500, L300.3900, L501.5425, L100.0100, L501.5200 ####[facility] [address] [place], [address] Hemoglobin (Bld) [Mass/Vol] 12.0 g/dL Normal 12.0-15.0 [facility] Comment on above: Performed By: #### L 500.2500, L300.3900, L501.5425, L100.0100, L501.5200 ####[facility] [address] [place], [address] IG% 0.400 Normal 0.0-0.9 [facility] Comment on above: Result Comment: IG% - Immature Granulocytes (promyelocytes, myelocytes andmetamyelocytes) > 1% indicates that a LEFT SHIFT is Present. Performed By: #### L 500.2500, L300.3900, L501.5425, L100.0100, L501.5200 ####[facility] [address] [place], [address] Lymphocytes/100 WBC (Bld) 15.0 % Low 19-41 [facility] Comment on above: Performed By: #### L 500.2500, L300.3900, L501.5425, L100.0100, L501.5200 ####[facility] [address] [place], [address] MCH (RBC) [Entitic mass] 32.8 pg High 27.0-32.0 [facility] Comment on above: Performed By: #### L 500.2500, L300.3900, L501.5425, L100.0100, L501.5200 ####[facility] [address] [place], [address] MCHC (RBC) [Mass/Vol] 32.9 g/dL Normal 32-36 [facility] Comment on above: Performed By: #### L 500.2500, L300.3900, L501.5425, L100.0100, L501.5200 ####[facility] [address] [place], [address] MCV (RBC) [Entitic vol] 99.7 fL High 81-99 [facility] Comment on above: Performed By: #### L 500.2500, L300.3900, L501.5425, L100.0100, L501.5200 ####[facility] [address] [place], [address] Monocytes/100 WBC (Bld) 8.2 % Normal 0-10 [facility] Comment on above: Performed By: #### L 500.2500, L300.3900, L501.5425, L100.0100, L501.5200 ####[facility] [address] [place], [address] Neutrophils/100 WBC (Bld) 75.4 % High 47-70 [facility] Comment on above: Performed By: #### L 500.2500, L300.3900, L501.5425, L100.0100, L501.5200 ####[facility] [address] [place], [address] Nucleated RBC (Bld) [#/Vol] 0 10*3/uL Normal 0-5 [facility] Comment on above: Performed By: #### L 500.2500, L300.3900, L501.5425, L100.0100, L501.5200 ####[facility] [address] [place], [address] Platelet mean volume (Bld) [Entitic vol] 11.4 fL Normal 6.2-12.0 [facility] Comment on above: Performed By: #### L 500.2500, L300.3900, L501.5425, L100.0100, L501.5200 ####[facility] [address] [place], [address] Platelets (Bld) [#/Vol] 159 10*3/uL Normal 150-450 [facility] Comment on above: Performed By: #### L 500.2500, L300.3900, L501.5425, L100.0100, L501.5200 ####[facility] [address] [place], [address] RBC (Bld) [#/Vol] 3.66 10*6/uL Low 4.2-5.4 [facility] Comment on above: Performed By: #### L 500.2500, L300.3900, L501.5425, L100.0100, L501.5200 ####[facility] [address] [place], [address] RDW SD 47.8 fl High 35.1-43.9 [facility] Comment on above: Performed By: #### L 500.2500, L300.3900, L501.5425, L100.0100, L501.5200 ####[facility] [id number] [place], [address] WBC (Bld) [#/Vol] 8.9 10*3/uL Normal 4.4-11.0 [facility] Comment on above: Performed By: #### L 500.2500, L300.3900, L501.5425, L100.0100, L501.5200 ####[facility] [address] [place], [address] CTA Chest W/WO Contraston CTA Chest W/WO Contrast Normal W [facility] D-Dimer Quantitative (DVT/PE )on 11-15-2023 D-DIMER QUANT 0.61 FEU/ug/m Invalid Interpretation Code 0.27-0.49 [facility] Comment on above: Result Comment: D-Di rodger ELEVATED (>0.49): Additional studies and clinicalassessments are indicated to conclude diagnosis of:Deep Vein Thrombosis (DVT) or Pulmonary Embolism (PE)CRITICAL VALUE VERIFIED. CALLED TO MADDIE FONSECA11/15/23 1421 Rhiannon Dominguez.RESULTS READ BACK BY SAME . Performed By: #### L 300.8000 ####[facility] [address] [place], [address] Emergency Department Summary on 11-15-2023 Emergency Department Summary Normal [facility] H AND P Exam - [place] 11-15-2023 H&P Exam - Hospitalist Normal [facility] L501.4020on 11-15-2023 TROPONIN-I HS 4 pg/mL Normal 3.0-54.0 [facility] Comment on above: Order Comment: Comme nts: SPECIMEN #3'TROP' Serial specimen #1, #2 or #3: 3 Result Comment: Plea se Note: New Test Units and Gender Specific Reference Ranges. For more information see Policy Stat Procedure [place] High Sensitivity Troponin (TNIH) and attachments. Performed By: #### L 501.4020 ####[facility] [address] [place], [address] TROPONIN-I HS 4 pg/mL Normal 3.0-54.0 [facility] Comment on above: Result Comment: Plea se Note: New Test Units and Gender Specific Reference Ranges. For more information see Policy Stat Procedure [place] High Sensitivity Troponin (TNIH) and attachments. Performed By: #### L 501.4020 ####[facility] [address] [place], [address] L501.5425on 11-15-2023 TROPONIN-I HS 4 pg/mL Normal 3.0-54.0 [facility] Comment on above: Order Comment: 1Y Result Comment: Plea se Note: New Test Units and Gender Specific Reference Ranges. For more information see Policy Stat Procedure [place] High Sensitivity Troponin (TNIH) and attachments. Performed By: #### L 500.2500, L300.3900, L501.5425, L100.0100, L501.5200 ####[facility] [address] [place], [address] Magnesiumon 11-15-2023 Magnesium [Mass/Vol] 1.9 mg/dL Normal 1.6-2.6 [facility] Comment on above: Order Comment: 1Y Performed By: #### L 500.2500, L300.3900, L501.5425, L100.0100, L501.5200 ####[facility] [address] [place], [address] Partial Thromboplast Timeon 11-15-2023 aPTT Coag (Bld) [Time] 26.8 s Normal 24.1-36.2 [facility] Comment on above: Order Comment: REDRA W. PREVIOUS SPECIMEN REJECTED DUE TOQNS. 11/15/23 1112 Rhiannon Dominguez. Performed By: #### L 300.3900, L300.4310 ####[facility] [address] [place], [address] Prothrombin Time w/INRon INR Coag (PPP) [Relative time] 1.1 {INR} Normal [facility] Comment on above: Order Comment: REDRA W. PREVIOUS SPECIMEN REJECTED DUE TOQNS. 11/15/23 1112 Rhiannon Dominguez. Performed By: #### L 300.3900, L300.4310 ####[facility] [address] [place], [address] PT Coag (PPP) [Time] 14.1 s Normal 11.7-14.9 [facility] Comment on above: Order Comment: REDRA W. PREVIOUS SPECIMEN REJECTED DUE TOQNS. 11/15/23 1112 Rhiannon Dominguez. Performed By: #### L 300.3900, L300.4310 ####[facility] [address] [place], [address] INR Normal [facility] Comment on above: Result Comment: This specimen has been REJECTED due to Laboratory criteria:Quantity Not Sufficient.Yemi BOO has been notified of need of recollection.11/15/23 1111 Rhiannon Dominguez Performed By: #### L 500.2500, L300.3900, L501.5425, L100.0100, L501.5200 ####[facility] [address] [place], [address] PROTIME Normal 11.7-14.9 [facility] Comment on above: Result Comment: This specimen has been REJECTED due to Laboratory criteria:Quantity Not Sufficient.Yemi BOO has been notified of need of recollection.11/15/23 1111 Rhiannon Dominguez Performed By: #### L 500.2500, L300.3909, L501.5447, L100.0100, L501.5200 ####[facility] [address] [place], [address] Absolute lymphocyte countOrd ered By: Pepe Ruiz on 09-07-2023 Lymphocytes Auto (Unsp spec) [#/Vol] 1.27 10*3/uL 0.83-4.51 [facility] Automated lymphocyte count a s percentage of total leukocytesOrdered By: Pepe Ruiz on 09-07-2023 Lymphocytes/100 WBC Auto (Unsp spec) 31.9 % 19-41 [facility] Basophil percentageOrdered B y: Pepe Ruiz on 09-07-2023 Basophils/100 WBC (Bld) 0.3 % 0-1 [facility] Eosinophils/100 WBC (Bld) 6.5 % 0-5 [facility] Hemoglobin (Bld) [Mass/Vol] 10.8 g/dL 12.0-15.0 [facility] Monocytes/100 WBC (Bld) 9.3 % 0-10 [facility] Neutrophils (Bld) [#/Vol] 2.0 10*3/uL 2.0-7.7 [facility] Neutrophils/100 WBC (Bld) 51.2 % 47-70 [facility] WBC (Bld) [#/Vol] 4.0 10*3/uL 4.4-11.0 [facility] Ammonia (P) [Moles/Vol] 67.0 umol/L 11-32 [facility] Basophil percentage 17.0 IU/mL <15 [facility] Bilirubin [Mass/Vol] 0.30 mg/dL 0.20-1.00 [facility] Comment on above: For patients on eltr ombopag therapy, use of Dimension [place] TBIL is not recommended. Chloride [Moles/Vol] 111 mmol/L 98-107 [facility] Glucose [Mass/Vol] 139 mg/dL 74-106 [facility] Comment on above: Fasting Glucose resu lt greater than or equal to 126 mg/dL suggests DIABETES MELLITUS per A.D.A. criteria. Potassium [Moles/Vol] 4.0 mmol/L 3.5-5.1 [facility] Protein [Mass/Vol] 6.6 g/dL 6.4-8.2 [facility] Sodium [Moles/Vol] 141 mmol/L 136-145 [facility] Determination of erythrocyte mean corpuscular volume (MCV)Ordered By: Pepe Ruiz on 09-07-2023 MCV (RBC) [Entitic vol] 100.0 fL 81-99 [facility] Erythrocyte distribution wid th ratioOrdered By: Pepeamol Ruiz on 09-07-2023 Erythrocyte distribution width (RBC) [Ratio] 14.2 % 11.6-14.6 [facility] Erythrocyte distribution wid th standard deviationOrdered By: Pepe Ruiz on 09-07-2023 Erythrocyte distribution width (RBC) [Entitic vol] 52.2 fL 35.1-43.9 [facility] Erythrocyte sedimentation ra teOrdered By: Pepe Ruiz on 09-07-2023 ESR (Bld) [Velocity] 2 mm/h 0-30 [facility] Hematocrit Auto (Bld) [Volum e fraction]Ordered By: Pepe Ruiz on 09-07-2023 Hematocrit (Bld) [Volume fraction] 33.0 % 37-47 [facility] Immature granulocytes/100 WB C Auto (Bld)Ordered By: Pepeamol Ruiz on 09-07-2023 Immature granulocytes/100 WBC (Bld) 0.800 % 0.0-0.9 [facility] Comment on above: IG% - Immature Granu locytes (promyelocytes, myelocytes and metamyelocytes) > 1% indicates that a LEFT SHIFT is Present. Laboratory - Chemistry and C hemistry - challengeOrdered By: Pepe Ruiz on 09-07-2023 Albumin/Globulin [Mass ratio] 0.7 {ratio} 0.9-2.4 [facility] ALP [Catalytic activity/Vol] 93 U/L 45-117 [facility] ALT [Catalytic activity/Vol] 21 U/L 13-56 [facility] CO2 [Moles/Vol] 25.0 mmol/L 21.0-32.0 [facility] Cobalamin (Vitamin B12) [Mass/Vol] 366 pg/mL 211-911 [facility] Globulin (S) [Mass/Vol] 3.8 g/dL 2.2-4.2 [facility] Urea nitrogen/Creatinine [Mass ratio] 21.4 mg/mg 10-20 [facility] Laboratory - Hematology and Cell countsOrdered By: Pepe Ruiz on 09-07-2023 MCH (RBC) [Entitic mass] 32.7 pg 27.0-32.0 [facility] MCHC (RBC) [Mass/Vol] 32.7 g/dL 32-36 [facility] Nucleated RBC/100 WBC (Bld) [Ratio] 0 % 0-5 [facility] Platelet mean volume (Bld) [Entitic vol] 12.0 fL 6.2-12.0 [facility] Platelets (Bld) [#/Vol] 186 10*3/uL 150-450 [facility] No Panel InformationOrdered By: Pepe Ruiz on 09-07-2023 Anti-Nuclear Antibody Screen Negative Negative [facility] Comment on above: Performed at: [facility] [address] Director: Lobo Das PhD, Phone: [phone] C-Reactive Protein Extended Range < 2.90 mg/L 0.0-3.0 [facility] Comment on above: C-Reactive Protein ( CRP) provides useful information for thediagnosis, therapy and monitoring of inflammatory processesand associated diseases. For the evaluation of Relative Riskfor Cardiovascular Disease, a High Sensitivity CRP (HSCRP)should be ordered. Estimated GFR (MDRD) Amer 76 mL/min >60 [facility] Comment on above: GFR Calc Estimated GFR (MDRD) Non-Af Amer 63 mL/min >60 [facility] Comment on above: Non- GFR Calc Folate 9.10 ng/mL 3.1-55.4 [facility] Hepatitis B Surface Antigen Non-Reactive Nonreactive [facility] Hepatitis C Antibody Non-Reactive Nonreactive [facility] Comment on above: Non Reactive: < 0.8 Equivocal: >/= 0.8 to < 1.0 Reactive: >/= 1.0The CDC requires that a reactive/equivocal HCV antibody result be sent out for confirmation. HCV Quant by PCR testing. Valproic Acid (Depakene) Level 103 ug/mL 50-100 [facility] RBC Auto (Bld) [#/Vol]Ordere d By: Pepe Ruiz on 09-07-2023 RBC (Bld) [#/Vol] 3.30 10*6/uL 4.2-5.4 [facility] Serum cyclic citrullinated p eptide IgG antibody assay (units/volume)Ordered By: Pepe Ruiz on 09-07-2023 Cyclic citrullinated peptide IgG Qn 7 units 0-19 [facility] Comment on above: Negative <20 Weak po sitive 20 - 39 Moderate positive 40 - 59 Strong positive >59Performed at: [facility] [id number] Director: Adamaris Shi MD, Phone: [phone] at: [facility] [address] [id number] Director: Lobo Das PhD, Phone: [phone] Serum hepatitis B virus surf shelly antibody IgG detectionOrdered By: Pepe Ruiz on 09-07-2023 HBV surface IgG Ql (S) Non-Reactive [facility] Comment on above: Non Reactive: Incons istent with immunity less than <10 mIU/mL Reactive: Consistent with immunity greater than or equal to 10 mIU/mL Serum or plasma calcium loretta urement (mass/volume)Ordered By: Pepe Ruiz on 09-07-2023 Calcium [Mass/Vol] 8.4 mg/dL 8.5-10.1 [facility] Serum or plasma creatinine m easurement (mass/volume)Ordered By: Pepe Ruiz on 09-07-2023 Creatinine [Mass/Vol] 0.94 mg/dL 0.55-1.02 [facility] Comment on above: The validity of the calculated GFR & GFRAA in patients over 70 years has not been determined. Clinical correlation is essential. Serum or plasma thiamine kirill surement (mass/volume)Ordered By: Pepe Ruiz on 09-07-2023 Thiamine [Mass/Vol] 109.8 nmol/L 66.5-200.0 [facility] Serum or plasma thyroid stim ulating hormone (TSH) measurement (units/volume)Ordered By: Pepe Ruiz on 09-07-2023 TSH Qn 2.91 uIU/mL 0.358-3.74 [facility] Serum or plasma urea nitroge n measurement (mass/volume)Ordered By: Pepe Ruiz on 09-07-2023 Urea nitrogen [Mass/Vol] 20 mg/dL 7-18 [facility] Thin prep Papanicolaou smear with manual screeningOrdered By: Pepeamol Ruiz on 09-07-2023 Thin prep Papanicolaou smear with manual screening 2.8 g/dL 3.2-5.0 [facility] Thin prep Papanicolaou smear with manual screening 21 U/L 15-37 [facility] Thin prep Papanicolaou smear with manual screening 5 5-15 [facility] Basophil percentageOrdered B y: Vadim Mckinney on 08-14-2023 Basophil percentage < 1.0 mg/dL 0.55-1.02 [facility] No Panel InformationOrdered By: Vadim Mckinney on 08-14-2023 Bedside Estimated GFR (eGFR) > 60.0000 mL/min >60 [facility] Absolute lymphocyte countOrd ered By: Mayda Garcia on 06-17-2023 Lymphocytes Auto (Unsp spec) [#/Vol] 0.86 10*3/uL 0.83-4.51 [facility] Automated lymphocyte count a s percentage of total leukocytesOrdered By: Mayda Garcia on 06-17-2023 Lymphocytes/100 WBC Auto (Unsp spec) 27.2 % 19-41 [facility] Basophil percentageOrdered B y: Mayda Garcia on 06-17-2023 Basophils/100 WBC (Bld) 0.6 % 0-1 [facility] Chloride [Moles/Vol] 112 mmol/L 98-107 [facility] Eosinophils/100 WBC (Bld) 2.8 % 0-5 [facility] Glucose [Mass/Vol] 138 mg/dL 74-106 [facility] Comment on above: Fasting Glucose resu lt greater than or equal to 126 mg/dL suggests DIABETES MELLITUS per A.D.A. criteria. Hemoglobin (Bld) [Mass/Vol] 12.2 g/dL 12.0-15.0 [facility] Monocytes/100 WBC (Bld) 6.0 % 0-10 [facility] Neutrophils (Bld) [#/Vol] 2.0 10*3/uL 2.0-7.7 [facility] Neutrophils/100 WBC (Bld) 63.1 % 47-70 [facility] Potassium [Moles/Vol] 4.1 mmol/L 3.5-5.1 [facility] Sodium [Moles/Vol] 142 mmol/L 136-145 [facility] WBC (Bld) [#/Vol] 3.2 10*3/uL 4.4-11.0 [facility] Determination of erythrocyte mean corpuscular volume (MCV)Ordered By: Mayda Garcia on 06-17-2023 MCV (RBC) [Entitic vol] 99.0 fL 81-99 [facility] Erythrocyte distribution wid th ratioOrdered By: [facility] Hospital[facility]elo [facility] on 06-17-2023 Erythrocyte distribution width (RBC) [Ratio] 14.3 % 11.6-14.6 [facility] Erythrocyte distribution wid th standard deviationOrdered By: [facility] Hospital[facility] Ibanezchandana on 06-17-2023 Erythrocyte distribution width (RBC) [Entitic vol] 52.5 fL 35.1-43.9 [facility] Hematocrit Auto (Bld) [Volum e fraction]Ordered By: Norismaricaoconsuelo Garcia on 06-17-2023 Hematocrit (Bld) [Volume fraction] 38.8 % 37-47 [facility] Immature granulocytes/100 WB C Auto (Bld)Ordered By: michellemaricaoconsuelo Garcia on 06-17-2023 Immature granulocytes/100 WBC (Bld) 0.300 % 0.0-0.9 [facility] Comment on above: IG% - Immature Granu locytes (promyelocytes, myelocytes and metamyelocytes) > 1% indicates that a LEFT SHIFT is Present. Laboratory - Chemistry and C hemistry - challengeOrdered By: Mayda Garcia on 06-17-2023 CO2 [Moles/Vol] 26.0 mmol/L 21.0-32.0 [facility] Urea nitrogen/Creatinine [Mass ratio] 27.6 mg/mg 10-20 [facility] Laboratory - Hematology and Cell countsOrdered By: Mayda Garcia on 06-17-2023 MCH (RBC) [Entitic mass] 31.1 pg 27.0-32.0 [facility] MCHC (RBC) [Mass/Vol] 31.4 g/dL 32-36 [facility] Nucleated RBC/100 WBC (Bld) [Ratio] 0 % 0-5 [facility] Platelet mean volume (Bld) [Entitic vol] 11.2 fL 6.2-12.0 [facility] Platelets (Bld) [#/Vol] 184 10*3/uL 150-450 [facility] No Panel InformationOrdered By: Mayda Garcia on 06-17-2023 Estimated GFR (MDRD) Amer 87 mL/min >60 [facility] Comment on above: GFR Calc Estimated GFR (MDRD) Non-Af Amer 72 mL/min >60 [facility] Comment on above: Non- GFR Calc RBC Auto (Bld) [#/Vol]Ordere d By: Mayda Garcia on 06-17-2023 RBC (Bld) [#/Vol] 3.92 10*6/uL 4.2-5.4 [facility] Serum or plasma calcium loretta urement (mass/volume)Ordered By: Mayda Garcia on 06-17-2023 Calcium [Mass/Vol] 8.5 mg/dL 8.5-10.1 [facility] Serum or plasma creatinine m easurement (mass/volume)Ordered By: Mayda Garcia on 06-17-2023 Creatinine [Mass/Vol] 0.83 mg/dL 0.55-1.02 [facility] Comment on above: The validity of the calculated GFR & GFRAA in patients over 70 years has not been determined. Clinical correlation is essential. Serum or plasma urea nitroge n measurement (mass/volume)Ordered By: Mayda Garcia on 06-17-2023 Urea nitrogen [Mass/Vol] 23 mg/dL 7-18 [facility] Thin prep Papanicolaou smear with manual screeningOrdered By: Mayda Garcia on 06-17-2023 Thin prep Papanicolaou smear with manual screening 4 5-15 [facility] Whole blood hemoglobin A1c/t otal hemoglobin ratio (mass fraction)Ordered By: Mayda Garcia on 06-17-2023 HbA1c (Bld) [Mass fraction] 6.3 % 3.8-5.6 [facility] Comment on above: Normal < 5.7 % Predi abetic 5.7 - 6.4 % Diabetic >or= 6.5 % Please note range changes. Absolute lymphocyte countOrd ered By: Carlos Bravo on 02-18-2023 Lymphocytes Auto (Unsp spec) [#/Vol] 1.35 10*3/uL 0.83-4.51 [facility] Basophil percentageOrdered B y: Pepe Ruiz on 02-18-2023 Ammonia (P) [Moles/Vol] 42.0 umol/L - [facility] Basophil percentage 42.0 umol/L - [facility] Basophil percentageOrdered B y: Carlos Bravo on 02-18-2023 Basophil percentage 96 mg/dL 74-106 [facility] Basophil percentage 7.4 g/dL 6.4-8.2 [facility] Basophil percentage 0.30 mg/dL 0.20-1.00 [facility] Basophil percentage 141 mmol/L 136-145 [facility] Basophil percentage 3.6 mmol/L 3.5-5.1 [facility] Basophil percentage 108 mmol/L 98-107 [facility] Basophils (Bld) [#/Vol] 5.6 10*3/uL 4.4-11.0 [facility] Basophils (Bld) [#/Vol] 3.4 10*3/uL 2.0-7.7 [facility] Basophils/100 WBC (Bld) 60.8 % 47-70 [facility] Basophils/100 WBC (Bld) 6.3 % 0-5 [facility] Basophils/100 WBC (Bld) 0.4 % 0-1 [facility] Bilirubin [Mass/Vol] 0.30 mg/dL 0.20-1.00 [facility] Comment on above: For patients on eltr ombopag therapy, use of Dimension [place] TBIL is not recommended. Chloride [Moles/Vol] 108 mmol/L 98-107 [facility] Eosinophils/100 WBC (Bld) 6.3 % 0-5 [facility] Glucose [Mass/Vol] 96 mg/dL 74-106 [facility] Neutrophils (Bld) [#/Vol] 3.4 10*3/uL 2.0-7.7 [facility] Neutrophils/100 WBC (Bld) 60.8 % 47-70 [facility] Potassium [Moles/Vol] 3.6 mmol/L 3.5-5.1 [facility] Protein [Mass/Vol] 7.4 g/dL 6.4-8.2 [facility] Sodium [Moles/Vol] 141 mmol/L 136-145 [facility] WBC (Bld) [#/Vol] 5.6 10*3/uL 4.4-11.0 [facility] Blood erythrocytes count (nu mber/volume)Ordered By: Carlos Bravo on 02-18-2023 RBC (Bld) [#/Vol] 3.67 10*6/uL 4.2-5.4 [facility] Blood hemoglobin measurement (mass/volume)Ordered By: Carlos Bravo on 02-18-2023 Hemoglobin (Bld) [Mass/Vol] 11.2 g/dL 12.0-15.0 [facility] Blood lymphocytes/100 leukoc ytesOrdered By: Carlos Bravo on 02-18-2023 Lymphocytes/100 WBC (Bld) 24.1 % 19-41 [facility] Blood monocytes/100 leukocyt esOrdered By: Carlos Bravo on 02-18-2023 Monocytes/100 WBC (Bld) 8.2 % 0-10 [facility] Blood platelet mean volumeOr dered By: Carlos Bravo on 02-18-2023 Platelet mean volume (Bld) [Entitic vol] 10.9 fL 6.2-12.0 [facility] Determination of erythrocyte mean corpuscular volume (MCV)Ordered By: Carlos Bravo on 02-18-2023 MCV (RBC) [Entitic vol] 96.7 fL 81-99 [facility] Hematocrit Auto (Bld) [Volum e fraction]Ordered By: Carlos Bravo on 02-18-2023 Hematocrit (Bld) [Volume fraction] 35.5 % 37-47 [facility] Laboratory - Chemistry and C hemistry - challengeOrdered By: Carlos Bravo on 02-18-2023 ALP [Catalytic activity/Vol] 79 U/L 45-117 [facility] ALT [Catalytic activity/Vol] 13 U/L 13-56 [facility] CO2 [Moles/Vol] 24.0 mmol/L 21.0-32.0 [facility] Free T4 [Mass/Vol] 1.01 ng/dL 0.76-1.46 [facility] Globulin (S) [Mass/Vol] 4.8 g/dL 2.2-4.2 [facility] Natriuretic peptide B (Bld) [Mass/Vol] 26.8 pg/mL 0-100 [facility] Urea nitrogen/Creatinine [Mass ratio] 17.6 mg/mg 10-20 [facility] Laboratory - Hematology and Cell countsOrdered By: Carlos Bravo on 02-18-2023 Erythrocyte distribution width (RBC) [Entitic vol] 52.1 fL 35.1-43.9 [facility] Erythrocyte distribution width (RBC) [Ratio] 14.6 % 11.6-14.6 [facility] Immature granulocytes/100 WBC (Bld) 0.200 % 0.0-0.9 [facility] Comment on above: IG% - Immature Granu locytes (promyelocytes, myelocytes and metamyelocytes) > 1% indicates that a LEFT SHIFT is Present. MCH (RBC) [Entitic mass] 30.5 pg 27.0-32.0 [facility] Nucleated RBC/100 WBC (Bld) [Ratio] 0 % 0-5 [facility] MCHC Auto (RBC) [Mass/Vol]Or dered By: Carlos Bravo on 02-18-2023 MCHC (RBC) [Mass/Vol] 31.5 g/dL 32-36 [facility] No Panel InformationOrdered By: Carlos Bravo on 02-18-2023 Estimated GFR (MDRD) Amer 92 mL/min >60 [facility] Comment on above: GFR Calc Estimated GFR (MDRD) Non-Af Amer 76 mL/min >60 [facility] Comment on above: Non- GFR Calc Thyroid Stimulating Hormone (TSH) 3.45 uIU/mL 0.358-3.74 [facility] 30.5 pg 27.0-32.0 [facility] 14.6 % 11.6-14.6 [facility] 52.1 fl 35.1-43.9 [facility] 0.200 % 0.0-0.9 [facility] 0 % 0-5 [facility] 76 mL/min >60 [facility] 92 mL/min >60 [facility] 17.6 RATIO 10-20 [facility] 4.8 g/dL 2.2-4.2 [facility] 79 U/L 45-117 [facility] 13 U/L 13-56 [facility] 24.0 mmol/L 21.0-32.0 [facility] 3.45 uIU/mL 0.358-3.74 [facility] 26.8 pg/mL 0-100 [facility] 1.01 ng/dL 0.76-1.46 [facility] No Panel InformationOrdered By: Pepe Ruiz on 02-18-2023 Valproic Acid (Depakene) Level 103 ug/mL 50-100 [facility] Whole Blood Vitamin B1 Level 106.4 nmol/L 66.5-200.0 [facility] Comment on above: Performed at: [address] [id number] Director: Adamaris Shi MD, Phone: [phone] 103 ug/mL 50-100 [facility] 106.4 nmol/L 66.5-200.0 [facility] Platelets bldOrdered By: Aj Bravo on 02-18-2023 Platelets (Bld) [#/Vol] 251 10*3/uL 150-450 [facility] Serum or plasma albumin loretta urement (mass/volume)Ordered By: Carlos Bravo on 02-18-2023 Albumin [Mass/Vol] 2.6 g/dL 3.2-5.0 [facility] Serum or plasma albumin/glob ulin mass ratioOrdered By: Carlos Bravo on 02-18-2023 Albumin/Globulin [Mass ratio] 0.5 {ratio} 0.9-2.4 [facility] Serum or plasma calcium loretta urement (mass/volume)Ordered By: Carlos Bravo on 02-18-2023 Calcium [Mass/Vol] 8.7 mg/dL 8.5-10.1 [facility] Serum or plasma creatinine m easurement (mass/volume)Ordered By: Carlos Bravo on 02-18-2023 Creatinine [Mass/Vol] 0.80 mg/dL 0.55-1.02 [facility] Comment on above: The validity of the calculated GFR & GFRAA in patients over 70 years has not been determined. Clinical correlation is essential. Serum or plasma urea nitroge n measurement (mass/volume)Ordered By: Carlos Bravo on 02-18-2023 Urea nitrogen [Mass/Vol] 14 mg/dL 7-18 [facility] Thin prep Papanicolaou smear with manual screeningOrdered By: Carlos Bravo on 02-18-2023 Thin prep Papanicolaou smear with manual screening 11 U/L 15-37 [facility] Thin prep Papanicolaou smear with manual screening 9 5-15 [facility] Iron measurement (mass/mass) Ordered By: Mayda Garcia on 02-04-2023 Iron (Unsp spec) [Mass/Mass] 41 ug/dL 50-170 [facility] Laboratory - Chemistry and C hemistry - challengeOrdered By: Mayda Garcia on 02-04-2023 Cobalamin (Vitamin B12) [Mass/Vol] 262 pg/mL 211-911 [facility] No Panel InformationOrdered By: Mayda Garcia on 02-04-2023 Total Iron Binding Capacity 217 ug/dL 250-450 [facility] 262 pg/mL 211-911 [facility] 217 ug/dL 250-450 [facility] Serum or plasma ferritin kirill surement (mass/volume)Ordered By: Mayda Garcia on 02-04-2023 Ferritin [Mass/Vol] 364 ng/mL 8-252 [facility] Serum or plasma folate measu rement (mass/volume)Ordered By: Mayda Garcia on 02-04-2023 Folate [Mass/Vol] 17.40 ng/mL 3.1-55.4 [facility] Absolute lymphocyte countOrd ered By: Robbin Carlos on 01-26-2023 Lymphocytes Auto (Unsp spec) [#/Vol] 1.96 10*3/uL 0.83-4.51 [facility] Basophil percentageOrdered B y: Robbin Carlos on 01-26-2023 Basophil percentage 85 mg/dL 74-106 [facility] Basophil percentage 140 mmol/L 136-145 [facility] Basophil percentage 3.9 mmol/L 3.5-5.1 [facility] Basophil percentage 108 mmol/L 98-107 [facility] Basophils (Bld) [#/Vol] 4.8 10*3/uL 4.4-11.0 [facility] Basophils (Bld) [#/Vol] 2.2 10*3/uL 2.0-7.7 [facility] Basophils/100 WBC (Bld) 0.6 % 0-1 [facility] Basophils/100 WBC (Bld) 46.3 % 47-70 [facility] Basophils/100 WBC (Bld) 3.3 % 0-5 [facility] Chloride [Moles/Vol] 108 mmol/L 98-107 [facility] Eosinophils/100 WBC (Bld) 3.3 % 0-5 [facility] Glucose [Mass/Vol] 85 mg/dL 74-106 [facility] Neutrophils (Bld) [#/Vol] 2.2 10*3/uL 2.0-7.7 [facility] Neutrophils/100 WBC (Bld) 46.3 % 47-70 [facility] Potassium [Moles/Vol] 3.9 mmol/L 3.5-5.1 [facility] Sodium [Moles/Vol] 140 mmol/L 136-145 [facility] WBC (Bld) [#/Vol] 4.8 10*3/uL 4.4-11.0 [facility] Blood erythrocytes count (nu mber/volume)Ordered By: Robbin Carlos on 01-26-2023 RBC (Bld) [#/Vol] 3.21 10*6/uL 4.2-5.4 [facility] Blood hemoglobin measurement (mass/volume)Ordered By: Robbni Carlos on 01-26-2023 Hemoglobin (Bld) [Mass/Vol] 9.9 g/dL 12.0-15.0 [facility] Blood lymphocytes/100 leukoc ytesOrdered By: Robbin Carlos on 01-26-2023 Lymphocytes/100 WBC (Bld) 41.0 % 19-41 [facility] Blood monocytes/100 leukocyt esOrdered By: Robbin Carlos on 01-26-2023 Monocytes/100 WBC (Bld) 8.4 % 0-10 [facility] Blood platelet mean volumeOr dered By: Robbin Carlos on 01-26-2023 Platelet mean volume (Bld) [Entitic vol] 11.4 fL 6.2-12.0 [facility] Determination of erythrocyte mean corpuscular volume (MCV)Ordered By: Robbin Carlos on 01-26-2023 MCV (RBC) [Entitic vol] 96.3 fL 81-99 [facility] Hematocrit Auto (Bld) [Volum e fraction]Ordered By: Robbin Carlos on 01-26-2023 Hematocrit (Bld) [Volume fraction] 30.9 % 37-47 [facility] - Chemistry and C hemistry - challengeOrdered By: Robbin Carlos on 01-26-2023 CO2 [Moles/Vol] 27.0 mmol/L 21.0-32.0 [facility] Urea nitrogen/Creatinine [Mass ratio] 17.4 mg/mg 10-20 [facility] - Hematology and Cell countsOrdered By: Robbin Carlos on 01-26-2023 Erythrocyte distribution width (RBC) [Entitic vol] 51.8 fL 35.1-43.9 [facility] Erythrocyte distribution width (RBC) [Ratio] 14.6 % 11.6-14.6 [facility] Immature granulocytes/100 WBC (Bld) 0.400 % 0.0-0.9 [facility] Comment on above: IG% - Immature Granu locytes (promyelocytes, myelocytes and metamyelocytes) > 1% indicates that a LEFT SHIFT is Present. MCH (RBC) [Entitic mass] 30.8 pg 27.0-32.0 [facility] Nucleated RBC/100 WBC (Bld) [Ratio] 0 % 0-5 [facility] MCHC Auto (RBC) [Mass/Vol]Or dered By: Robbin Carlos on 01-26-2023 MCHC (RBC) [Mass/Vol] 32.0 g/dL 32-36 [facility] No Panel InformationOrdered By: Robbin Carlos on 01-26-2023 Estimated Creatinine Clearance Calc 41.40 ml/min [facility] Estimated GFR (MDRD) Amer 99 mL/min >60 [facility] Comment on above: GFR Calc Estimated GFR (MDRD) Non-Af Amer 82 mL/min >60 [facility] Comment on above: Non- GFR Calc 30.8 pg 27.0-32.0 [facility] 14.6 % 11.6-14.6 [facility] 51.8 fl 35.1-43.9 [facility] 0.400 % 0.0-0.9 [facility] 0 % 0-5 [facility] 82 mL/min >60 [facility] 99 mL/min >60 [facility] 41.40 ml/min [facility] 17.4 RATIO 10-20 [facility] 27.0 mmol/L 21.0-32.0 [facility] Platelets bldOrdered By: Robbin Carlos on 01-26-2023 Platelets (Bld) [#/Vol] 149 10*3/uL 150-450 [facility] Serum or plasma calcium loretta urement (mass/volume)Ordered By: Robbin Carlos on 01-26-2023 Calcium [Mass/Vol] 8.5 mg/dL 8.5-10.1 [facility] Serum or plasma creatinine m easurement (mass/volume)Ordered By: Robbin Carlos on 01-26-2023 Creatinine [Mass/Vol] 0.75 mg/dL 0.55-1.02 [facility] Comment on above: The validity of the calculated GFR & GFRAA in patients over 70 years has not been determined. Clinical correlation is essential. Serum or plasma urea nitroge n measurement (mass/volume)Ordered By: Robbin Carlos on 01-26-2023 Urea nitrogen [Mass/Vol] 13 mg/dL 7-18 [facility] Thin prep Papanicolaou smear with manual screeningOrdered By: Robbin Carlos 01-26-2023 Thin prep Papanicolaou smear with manual screening 5 5-15 [facility] Basophil percentageOrdered B y: Robbin Carlos on 01-22-2023 Basophil percentage 6.4 g/dL 6.4-8.2 [facility] Basophil percentage 0.20 mg/dL 0.20-1.00 [facility] Bilirubin [Mass/Vol] 0.20 mg/dL 0.20-1.00 [facility] Comment on above: For patients on eltr ombopag therapy, use of Dimension [place] TBIL is not recommended. Protein [Mass/Vol] 6.4 g/dL 6.4-8.2 [facility] Laboratory - Chemistry and C hemistry - challengeOrdered By: Robbin Carlos on 01-22-2023 ALP [Catalytic activity/Vol] 102 U/L [facility] ALT [Catalytic activity/Vol] 28 U/L [facility] Globulin (S) [Mass/Vol] 3.9 g/dL 2.2-4.2 [facility] No Panel InformationOrdered By: Robbin Carlos on 01-22-2023 3.9 g/dL 2.2-4.2 [facility] 102 U/L [facility] 28 U/L [facility] Serum or plasma albumin loretta urement (mass/volume)Ordered By: Robbin Carlos on 01-22-2023 Albumin [Mass/Vol] 2.5 g/dL 3.2-5.0 [facility] Serum or plasma albumin/glob ulin mass ratioOrdered By: Robbin Carlos on 01-22-2023 Albumin/Globulin [Mass ratio] 0.6 {ratio} 0.9-2.4 [facility] Thin prep Papanicolaou smear with manual screeningOrdered By: Robbin Carlos on 01-22-2023 Thin prep Papanicolaou smear with manual screening 26 U/L [facility] Whole blood hemoglobin A1c/t otal hemoglobin ratio (mass fraction)Ordered By: Robbin Carlos on 01-22-2023 HbA1c (Bld) [Mass fraction] 6.4 % 3.8-5.6 [facility] Comment on above: Normal < 5.7 % Predi abetic 5.7 - 6.4 % Diabetic >or= 6.5 % Please note range changes. SARS-CoV-2 (COVID-19) Ag IA. rapid Ql (Resp)Ordered By: Robbin Carlos on 01-21-2023 COVID-19 virus antigen assay SARS-CoV-2 (COVID 19) [facility] SARS-CoV-2 Antigen (Rapid) SARS-CoV-2 (COVID 19) [facility] COVID-19 virus antigen assay SARS-CoV-2 (COVID 19) [facility] Glucose Glucometer (BldC) [M ass/Vol]Ordered By: Robbin Carlos on 01-18-2023 Glucose [Mass/Vol] 72 mg/dL 74-106 [facility] Comment on above: MANAGEMENT OF PATIEN T CARE PER NURSING PROTOCOL POCT glucose meteron 023 Glucose [Mass/Vol] 98 mg/dL 70 - 100 mg/dL [facility] Interpretation and review of laboratory results Normal [facility] Performed by: [facility], [address] [place] [address] CLIA ID: [id number] [facility] POCT glucose meteron 023 Glucose [Mass/Vol] 98 mg/dL 70 - 100 mg/dL [facility] Interpretation and review of laboratory results Normal [facility] Performed by: [facility], [address] [place] [address] CLIA ID: [id number] [facility] POCT glucose meteron 023 Glucose [Mass/Vol] 157 mg/dL High 70 - 100 mg/dL [facility] Interpretation and review of laboratory results Abnormal [facility] Performed by: [facility], [address] [place] [address] CLIA ID: [id number] [facility] Glucose [Mass/Vol] 113 mg/dL High 70 - 100 mg/dL [facility] Interpretation and review of laboratory results Abnormal [facility] Performed by: [facility], [address] [place] [address] CLIA ID: [id number] [facility] XR Chest Single viewon 01-08 Patient Name: [...] Electronically Signed Date/Time: 01/08/2023 7:43 AM EDT [facility] Gómez Calvert MD - 01/08/2023 [...] Electronically Signed Date/Time: 01/08/2023 7:43 AM EDT [facility] Radiology Study observation (narrative) [facility] Basic metabolic 1998 panelon 01-07-2023 Anion gap [Moles/Vol] 9 mmol/L 3 - 13 mmol/L [facility] Calcium [Mass/Vol] 8.5 mg/dL 8.4 - 10. 4 mg/dL [facility] Chloride [Moles/Vol] 101 mmol/L 98 - 10 7 mmol/L [facility] CO2 [Moles/Vol] 27 mmol/L 22 - 30 mmol/L [facility] Creatinine [Mass/Vol] 0.91 mg/dL 0.52 - 1.04 mg/dL [facility] GFR/1.73 sq M.predicted MDRD (S/P/Bld) [Vol rate/Area] 68.0 mL/min/{1.73_m2} - PINF [facility] Comment on above: Calculation based on the Chronic Kidney Disease Epidemiology Collaboration (CKD-EPI) equation refit without adjustment for race Glucose [Mass/Vol] 83 mg/dL 70 - 100 mg/dL [facility] Potassium [Moles/Vol] 4.2 mmol/L 3.5 - 5.1 mmol/L [facility] Sodium [Moles/Vol] 137 mmol/L 135 - 145 mmol/L [facility] Urea nitrogen [Mass/Vol] 30 mg/dL High 7 - 17 mg/dL [facility] CBC panel Auto (Bld)Ordered By: Ekaterina Fountain on 01-07-2023 Erythrocyte distribution width (RBC) [Ratio] 15.8 % High 11.5 - 14.5 % [facility] Hematocrit (Bld) [Volume fraction] 30.0 % Low 35.0 - 47.0 % [facility] Hemoglobin (Bld) [Mass/Vol] 10.3 g/dL Low 11.7 - 16.0 g/dL [facility] Interpretation and review of laboratory results Abnormal [facility] MCH (RBC) [Entitic mass] 32.0 pg 26.0 - 34.0 pg [facility] MCHC (RBC) [Mass/Vol] 34.2 % 32.0 - 36.0 % [facility] MCV (RBC) [Entitic vol] 93.7 fL 80.0 - 98.0 fL [facility] Platelet mean volume (Bld) [Entitic vol] 9.1 fL 7.4 - 12.4 fL [facility] Platelets (Bld) [#/Vol] 162 10*3/uL 140 - 440 10*3/uL [facility] RBC (Bld) [#/Vol] 3.21 10*6/uL Low 3.8 - 5.20 10*6/uL [facility] WBC (Bld) [#/Vol] 5.4 10*3/uL 3.6 - 10.7 10*3/uL [facility] Magnesiumon 01-07-2023 Magnesium [Mass/Vol] 2.4 mg/dL High 1.6 - 2 .3 mg/dL [facility] No Panel Informationon 01-07 Interpretation and review of laboratory results Abnormal [facility] POCT glucose meteron 023 Glucose [Mass/Vol] 102 mg/dL High 70 - 100 mg/dL [facility] Interpretation and review of laboratory results Abnormal [facility] Performed by: [facility], [address] [place] [address] CLIA ID: [id number] [facility] Glucose [Mass/Vol] 118 mg/dL High 70 - 100 mg/dL [facility] Interpretation and review of laboratory results Abnormal [facility] Performed by: [facility], [address] [place] [address] CLIA ID: [id number] [facility] Glucose [Mass/Vol] 124 mg/dL High 70 - 100 mg/dL [facility] Interpretation and review of laboratory results Abnormal [facility] Performed by: [facility], [address] [place] [address] CLIA ID: [id number] [facility] Progress Noteon 01-07-2023 Progress Note Department of Armor Officer al Medicine Division of Endocrinology, Diabetes, & Metabolism Endocrinology Note Patient Name: Lacy Alvarado : 1950 AGE: 72 y.o. Room/Bed: [email or web address] A Admission Date: 01/01/2023 Visit Date: 01/07/2023 Reason for Endocrine Consult: post op heart Provider/Team Requesting Consult: cts PCP: MAYDA Marspt Grinder Outside Diameter: No ASSESSMENT: DM 2 with hyperglycemia without byproducts extractor insulin Stress hyperglycemia CAD s/p Cabgx4 PLAN: [...] Oral, Daily (more content not included)... Normal [facility] Progress Note Physical Therapy Facility/Department: [facility] Physical Therapy Daily Treatment Note NAME: Lacy Alvarado : 1950 Date of Service: 01/07/2023 Discharge Recommendations: IP Rehab, Senior [facility] Facility PT Equipment Recommendations Equipment Needed: No [...] The primary encounter diagnosis was CAD in [place] artery. A diagnosis of Coronary artery disease involving coronary bypass graft, unspecified whether angina present, unspecified whether [place] or transplanted heart was also pertinent to this visit. has a past medical history of CHF (congestive heart failure) (CMS/HCC) ([facility]), Diabetes mellitus ([facility]), GERD (gastroesophageal reflux disease), Hyperlipidemia, Hypertension, RA (rheumatoid arthritis) ([facility]), Seizure ([facility]), Seizures ([facility]), and Sleep apnea. has a past surgical [...] / Caregiver Present: No Diagnosis: CAD in [place] artery s/p CABG on 01/01 Follows Commands: [...] for pur (more content not included)... Normal [facility] XR CHEST 1 VIEWon 01-07-2023 XR [...] Electronically Signed Date/Time: 01/07/2023 7:57 AM EDT [facility] XR Chest Single viewon 01-07 Impression: As above. Report Dictated on Electronically Signed By: Nely Pierce MD Electronically Signed Date/Time: 01/07/2023 7:57 AM EDT [facility] Patient Name: LACY SAVAGE : 1950 Exam Date/Time: 01/07/2023 05:18 Procedure: XR CHEST 1 VIEW Ordering Provider: WEAVER JENNIFER Reason For Exam: Shortness of breath Examination: Portable chest Indication: Shortness of breath Comparison: Previous day Findings: The cardiac silhouette is enlarged with median sternotomy changes. Suspect small pleural effusions. No gross consolidation or sizable infiltrate noted. No sizable pneumothorax. [facility] Nely Pierce MD - 01/07/2023 Patient [...] Electronically Signed Date/Time: 01/07/2023 7:57 AM EDT [facility] Radiology Study observation (narrative) [facility] XR Chest Single viewOrdered By: Nely Pierce on 01-07-2023 [facility] Work Phone: Basic metabolic 1998 panelon 01-06-2023 Anion gap [Moles/Vol] 11 mmol/L 3 - 13 mmol/L [facility] Calcium [Mass/Vol] 8.6 mg/dL 8.4 - 10. 4 mg/dL [facility] Chloride [Moles/Vol] 98 mmol/L 98 - 10 7 mmol/L [facility] CO2 [Moles/Vol] 27 mmol/L 22 - 30 mmol/L [facility] Creatinine [Mass/Vol] 0.99 mg/dL 0.52 - 1.04 mg/dL [facility] GFR/1.73 sq M.predicted MDRD (S/P/Bld) [Vol rate/Area] 61.5 mL/min/{1.73_m2} - [facility] Comment on above: Calculation based on the Chronic Kidney Disease Epidemiology Collaboration (CKD-EPI) equation refit without adjustment for race Glucose [Mass/Vol] 95 mg/dL 70 - 100 mg/dL [facility] Potassium [Moles/Vol] 3.9 mmol/L 3.5 - 5.1 mmol/L [facility] Sodium [Moles/Vol] 136 mmol/L 135 - 145 mmol/L [facility] Urea nitrogen [Mass/Vol] 39 mg/dL High 7 - 17 mg/dL [facility] CARECOORDon 01-06-2023 [facility] patient, too functional. Updated patient at bedside and alyssa Holloway (HCPOA) over the phone. Declined SNF at this time, would like to plan discharge home with HHC including PT/OT/SN/SEEING EYE DOG TRAINER if possible. Will updated PEDROZA PACC, CTS STOCK BLENDER aware. Normal [facility] CBC panel Auto (Bld)Ordered By: Farhat Curtis on 01-06-2023 Erythrocyte distribution width (RBC) [Ratio] 16.2 % High 11.5 - 14.5 % [facility] Hematocrit (Bld) [Volume fraction] 30.7 % Low 35.0 - 47.0 % [facility] Hemoglobin (Bld) [Mass/Vol] 10.2 g/dL Low 11.7 - 16.0 g/dL [facility] Interpretation and review of laboratory results Abnormal [facility] MCH (RBC) [Entitic mass] 31.7 pg 26.0 - 34.0 pg [facility] MCHC (RBC) [Mass/Vol] 33.3 % 32.0 - 36.0 % [facility] MCV (RBC) [Entitic vol] 95.3 fL 80.0 - 98.0 fL [facility] Platelet mean volume (Bld) [Entitic vol] 9.2 fL 7.4 - 12.4 fL [facility] Platelets (Bld) [#/Vol] 141 10*3/uL 140 - 440 10*3/uL [facility] RBC (Bld) [#/Vol] 3.22 10*6/uL Low 3.8 - 5.20 10*6/uL [facility] WBC (Bld) [#/Vol] 5.6 10*3/uL 3.6 - 10.7 10*3/uL [facility] Magnesiumon 01-06-2023 Magnesium [Mass/Vol] 2.7 mg/dL High 1.6 - 2 .3 mg/dL [facility] No Panel Informationon 01-06 Interpretation and review of laboratory results Abnormal [facility] POCT glucose meteron 023 Glucose [Mass/Vol] 106 mg/dL High 70 - 100 mg/dL [facility] Interpretation and review of laboratory results Abnormal [facility] Performed by: [facility], [address] [place] [address] CLIA ID: [id number] [facility] Glucose [Mass/Vol] 97 mg/dL 70 - 100 mg/dL [facility] Interpretation and review of laboratory results Normal [facility] Performed by: [facility], [address] [place] [address] CLIA ID: [id number] [facility] Glucose [Mass/Vol] 109 mg/dL High 70 - 100 mg/dL [facility] Interpretation and review of laboratory results Abnormal [facility] Performed by: [facility], [address] [place] [address] CLIA ID: [id number] [facility] Progress Noteon 01-06-2023 Progress [...] The primary encounter diagnosis was CAD in [place] artery. A diagnosis of Coronary artery disease involving coronary bypass graft, unspecified whether angina present, unspecified whether [place] or transplanted heart was also pertinent to this visit. has a past medical history of CHF (congestive heart failure) (CMS/HCC) (HCC), Diabetes mellitus (HCC), GERD (gastroesophageal reflux disease), Hyperlipidemia, Hypertension, RA (rheumatoid arthritis) ([facility]), Seizure (HCC), Seizures (HCC), and Sleep apnea. [...] Activity Raw Score (more content not included)... [facility] Progress Note Physical Therapy Facility/Department: [facility] Physical Therapy Daily Treatment Note NAME: Lacy [...] The primary encounter diagnosis was CAD in [place] artery. A diagnosis of Coronary artery disease involving coronary bypass graft, unspecified whether angina present, unspecified whether [place] or transplanted heart was also pertinent to this visit. has a past medical history of CHF (congestive heart failure) (CMS/HCC) ([facility]), Diabetes mellitus (HCC), GERD (gastroesophageal reflux disease), [...] / Caregiver Present: No Diagnosis: CAD in [place] artery s/p CABG on 01/01 Follows Commands: [...] Restraints Init (more content not included)... Normal [facility] Progress Note ---- -------- Attestation signed [...] Milian. Patient was admitted on 12/18/22 to [facility] with CP history of CHF, CAD, DM [...] []Yes [x] N (more content not included)... [facility] XR CHEST 1 VIEWon 01-06-2023 XR CHEST [...] Electronically Signed Date/Time: 01/06/2023 9:27 AM EDT [facility] XR Chest Single viewon 01-06 Layering right effus ion. Atelectasis of the left base. Report Dictated on Electronically Signed By: Eyad Cohen DO Electronically Signed Date/Time: 01/06/2023 9:27 AM T [facility] Patient Name: LACY SAVAGE : 1950 [...] patient has undergone prior open heart surgery. [facility] Eyad Cohen DO - 01/06/2023 [facility] Name: [facility] 1950 [id number] Exam Date/Time: 01/06/2023 05:16 Procedure: XR CHEST [...] Electronically Signed Date/Time: 01/06/2023 9:27 AM EDT [facility] Radiology Study observation (narrative) [facility] XR Chest Single viewOrdered By: Eyad Cohen on 01-06-2023 [facility] Work Phone: Basic metabolic 1998 panelon 01-05-2023 Anion gap [Moles/Vol] 11 mmol/L 3 - 13 mmol/L [facility] Calcium [Mass/Vol] 8.5 mg/dL 8.4 - 10. 4 mg/dL [facility] Chloride [Moles/Vol] 98 mmol/L 98 - 10 7 mmol/L [facility] CO2 [Moles/Vol] 27 mmol/L 22 - 30 mmol/L [facility] Creatinine [Mass/Vol] 1.25 mg/dL High 0.52 - 1.04 mg/dL [facility] GFR/1.73 sq M.predicted MDRD (S/P/Bld) [Vol rate/Area] 46.5 mL/min/{1.73_m2} Low - PINF [facility] Comment on above: Calculation based on the Chronic Kidney Disease Epidemiology Collaboration (CKD-EPI) equation refit without adjustment for race Glucose [Mass/Vol] 98 mg/dL 70 - 100 mg/dL [facility] Potassium [Moles/Vol] 3.8 mmol/L 3.5 - 5.1 mmol/L [facility] Sodium [Moles/Vol] 137 mmol/L 135 - 145 mmol/L [facility] Urea nitrogen [Mass/Vol] 43 mg/dL High 7 - 17 mg/dL [facility] CBC panel Auto (Bld)on 01-05 Erythrocyte distribution width (RBC) [Ratio] 16.0 % High 11.5 - 14.5 % [facility] Hematocrit (Bld) [Volume fraction] 28.7 % Low 35.0 - 47.0 % [facility] Hemoglobin (Bld) [Mass/Vol] 9.9 g/dL Low 11.7 - 16.0 g/dL [facility] Interpretation and review of laboratory results Abnormal [facility] MCH (RBC) [Entitic mass] 32.1 pg 26.0 - 34.0 pg [facility] MCHC (RBC) [Mass/Vol] 34.3 % 32.0 - 36.0 % [facility] MCV (RBC) [Entitic vol] 93.5 fL 80.0 - 98.0 fL [facility] Platelet mean volume (Bld) [Entitic vol] 9.9 fL 7.4 - 12.4 fL [facility] Platelets (Bld) [#/Vol] 114 10*3/uL Low 140 - 440 10*3/uL [facility] RBC (Bld) [#/Vol] 3.07 10*6/uL Low 3.8 - 5.20 10*6/uL [facility] WBC (Bld) [#/Vol] 6.7 10*3/uL 3.6 - 10.7 10*3/uL [facility] Magnesiumon 01-05-2023 Magnesium [Mass/Vol] 2.8 mg/dL High 1.6 - 2 .3 mg/dL [facility] No Panel Informationon 01-05 Interpretation and review of laboratory results Abnormal [facility] Blood Expiration Date [id number] S [facility] Crossmatch interpretation COMP [facility] Dispense Status Released from [employer] Product Blood Type 5100 [facility] PRODUCT CODE [id number] [facility] Unit ABO O [facility] Unit RH Positive [facility] Unit Volume 300 mL [facility] POCT glucose meteron 023 Glucose [Mass/Vol] 105 mg/dL High 70 - 100 mg/dL [facility] Interpretation and review of laboratory results Abnormal [facility] Performed by: [facility], [address] [place] [address] CLIA ID: [id number] [facility] Glucose [Mass/Vol] 110 mg/dL High 70 - 100 mg/dL [facility] Interpretation and review of laboratory results Abnormal [facility] Performed by: [facility], [address] [place] [address] CLIA ID: [id number] [facility] Prepare RBC: 2 Unitson 01-05 Unit Number [id number] [facility] Unit Number [id number] [facility]on 01-05-2023 Progress Note Department of Armor Officer al Medicine Division of Endocrinology, Diabetes, & Metabolism Endocrinology Note Patient Name: Lacy Alvarado : 1950 AGE: 72 y.o. Room/Bed: [email or web address] Admission Date: 01/01/2023 Visit Date: 01/05/2023 Reason for Endocrine Consult: post op heart Provider/Team Requesting Consult: cts PCP: MAYDA Esposito Grinder Outside Diameter: No ASSESSMENT: DM 2 with hyperglycemia without halfway insulin Stress hyperglycemia CAD s/p Cabgx4 PLAN: [...] polyethylene gly (more content not included)... Normal [facility] Progress Note ---- -------- Attestation signed [...] PIV GOC/Family Discussions: Full code -------- Cardiothoracic Surgery/[facility] Progress Note PATIENT NAME: Lacy Alvarado DATE: 01/05/23 HPI: Lacy Alvarado is a 72 y.o. female was referred to us by Dr. Bhanu Milian. Patient was admitted on 12/18/22 to [facility] with CP history of CHF, CAD, DM [...] lasix today. (more content not included)... Normal [facility] XR CHEST 1 VIEWon 01-05-2023 XR [...] Electronically Signed Date/Time: 01/05/2023 5:37 AM EDT [facility] XR Chest Single viewon 01-05 See findings. Report Dictated on Electronically Signed By: Jake Vasquez MD Electronically Signed Date/Time: 01/05/2023 5:37 AM EDT [facility] Name[facility] LACY [facility]AVAGE [facility] 1950 [id number] Exam Date/Time: 01/05/2023 05:19 Procedure: XR CHEST [...] unremarkable. Bones: No acute osseous process identified. [facility] Jake Vasquez MD - 01/05/2023 Patient Name: LACY ALVARADO : 1950 [id number] Exam Date/Time: 01/05/2023 05:19 Procedure: XR CHEST [...] Electronically Signed Date/Time: 01/05/2023 5:37 AM EDT [facility] Radiology Study observation (narrative) [facility] XR Chest Single viewOrdered By: Jake Vasquez on 01-05-2023 [facility] Work Phone: Basic metabolic 1998 panelon 01-04-2023 Anion gap [Moles/Vol] 8 mmol/L 3 - 13 mmol/L [facility] Calcium [Mass/Vol] 8.5 mg/dL 8.4 - 10. 4 mg/dL [facility] Chloride [Moles/Vol] 100 mmol/L 98 - 10 7 mmol/L [facility] CO2 [Moles/Vol] 26 mmol/L 22 - 30 mmol/L [facility] Creatinine [Mass/Vol] 1.11 mg/dL High 0.52 - 1.04 mg/dL [facility] GFR/1.73 sq M.predicted MDRD (S/P/Bld) [Vol rate/Area] 53.6 mL/min/{1.73_m2} Low - PINF [facility] Comment on above: Calculation based on the Chronic Kidney Disease Epidemiology Collaboration (CKD-EPI) equation refit without adjustment for race Glucose [Mass/Vol] 97 mg/dL 70 - 100 mg/dL [facility] Potassium [Moles/Vol] 3.9 mmol/L 3.5 - 5.1 mmol/L [facility] Sodium [Moles/Vol] 135 mmol/L 135 - 145 mmol/L [facility] Urea nitrogen [Mass/Vol] 34 mg/dL High 7 - 17 mg/dL [facility] CBC panel Auto (Bld)Ordered By: Thien Sinha on 01-04-2023 Erythrocyte distribution width (RBC) [Ratio] 16.0 % High 11.5 - 14.5 % [facility] Hematocrit (Bld) [Volume fraction] 29.0 % Low 35.0 - 47.0 % [facility] Hemoglobin (Bld) [Mass/Vol] 9.9 g/dL Low 11.7 - 16.0 g/dL [facility] Interpretation and review of laboratory results Abnormal [facility] MCH (RBC) [Entitic mass] 31.9 pg 26.0 - 34.0 pg [facility] MCHC (RBC) [Mass/Vol] 34.1 % 32.0 - 36.0 % [facility] MCV (RBC) [Entitic vol] 93.4 fL 80.0 - 98.0 fL [facility] Platelet mean volume (Bld) [Entitic vol] 9.2 fL 7.4 - 12.4 fL [facility] Platelets (Bld) [#/Vol] 87 10*3/uL Low 140 - 440 10*3/uL [facility] RBC (Bld) [#/Vol] 3.10 10*6/uL Low 3.8 - 5.20 10*6/uL [facility] WBC (Bld) [#/Vol] 7.9 10*3/uL 3.6 - 10.7 10*3/uL [facility] Magnesiumon 01-04-2023 Magnesium [Mass/Vol] 2.6 mg/dL High 1.6 - 2 .3 mg/dL [facility] No Panel Informationon 01-04 Interpretation and review of laboratory results Abnormal [facility] POCT glucose meteron 023 Glucose [Mass/Vol] 116 mg/dL High 70 - 100 mg/dL [facility] Interpretation and review of laboratory results Abnormal [facility] Performed by: [facility], [address] [facility] [address] CLIA ID: [id number] [facility] Glucose [Mass/Vol] 119 mg/dL High 70 - 100 mg/dL [facility] Interpretation and review of laboratory results Abnormal [facility] Performed by: [facility], [address] [facility] [address] CLIA ID: [id number] [facility] Glucose [Mass/Vol] 122 mg/dL High 70 - 100 mg/dL [facility] Interpretation and review of laboratory results Abnormal [facility]formed [facility]: [facility], [address] [place] [address] CLIA ID: [id number] [facility] Progress Noteon 01-04-2023 Progress Note Cardiothoracic Surge [...] observe for. Will continue to monitor. Normal [facility] Progress Note Physical Therapy Facility/Department: [facility] [...] her apartment. Currently, recommend IP Rehab at [facility]. Performance Deficits/Impairments: Decreased functional mobility , Decreased endurance, Increased pain, Decreased ADL status, Decreased strength, Decreased posture, Decreased balance Decision Making: Medium Complexity Patient Diagnosis(es): The primary encounter diagnosis was CAD in [place] artery. A diagnosis of Coronary artery disease involving coronary bypass graft, unspecified whether angina present, unspecified whether [place] or transplanted heart was also pertinent to this visit. has a past medical history of CHF (congestive heart failure) (CMS/HCC) ([facility]), Diabetes mellitus ([facility]), GERD (gastroesophageal reflux disease), Hyperlipidemia, Hypertension, RA (rheumatoid arthritis) ([facility]), Seizure ([facility]), Seizures ([facility]), and Sleep apnea. has a past surgical [...] / Caregiver Present: No Diagnosis: CAD in [place] artery s/p CABG on 01/01 Follows Commands: [...] Start: 01/02/23 (more content not included)... Normal [facility] Progress Note Department of Armor Officer al Medicine Division of Endocrinology, Diabetes, & Metabolism Endocrinology Note Patient Name: Lacy Alvarado : 1950 AGE: 72 y.o. 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 [facility] XR CHEST 1 VIEWon 01-04-2023 XR CHEST 1 VIEW [facility] 1950 [id number] Exam Date/Time: 01/04/2023 05:18 Procedure: XR CHEST [...] Electronically Signed Date/Time: 01/04/2023 7:18 AM EDT [facility] XR Chest Single viewon 01-04 No significant change when compared with the previous study. Report Dictated on Electronically Signed By: Dino Jurado MD Electronically Signed Date/Time: 01/04/2023 7:18 AM EDT [facility] Patient Name: LACY SAVAGE : 1950 [...] There are degenerative changes of the spine. [facility] Dino Jurado MD - 01/04/2023 Patient [...] Electronically Signed Date/Time: 01/04/2023 7:18 AM EDT [facility] Radiology Study observation (narrative) [facility] Basic metabolic 1998 panelon 01-03-2023 Anion gap [Moles/Vol] 7 mmol/L 3 - 13 mmol/L [facility] Calcium [Mass/Vol] 8.5 mg/dL 8.4 - 10. 4 mg/dL [facility] Chloride [Moles/Vol] 103 mmol/L 98 - 10 7 mmol/L [facility] CO2 [Moles/Vol] 25 mmol/L 22 - 30 mmol/L [facility] Creatinine [Mass/Vol] 0.80 mg/dL 0.52 - 1.04 mg/dL [facility] GFR/1.73 sq M.predicted MDRD (S/P/Bld) [Vol rate/Area] 79.4 mL/min/{1.73_m2} - PINF [facility] Comment on above: Calculation based on the Chronic Kidney Disease Epidemiology Collaboration (CKD-EPI) equation refit without adjustment for race Glucose [Mass/Vol] 113 mg/dL High 70 - 100 mg/dL [facility] Interpretation and review of laboratory results Abnormal [facility] Potassium [Moles/Vol] 4.4 mmol/L 3.5 - 5.1 mmol/L [facility] Sodium [Moles/Vol] 136 mmol/L 135 - 145 mmol/L [facility] Urea nitrogen [Mass/Vol] 23 mg/dL High 7 - 17 mg/dL [facility] CBC panel Auto (Bld)Ordered By: Igor Gar on 01-03-2023 Erythrocyte distribution width (RBC) [Ratio] 16.7 % High 11.5 - 14.5 % [facility] Hematocrit (Bld) [Volume fraction] 29.5 % Low 35.0 - 47.0 % [facility] Hemoglobin (Bld) [Mass/Vol] 10.1 g/dL Low 11.7 - 16.0 g/dL [facility] Interpretation and review of laboratory results Abnormal [facility] MCH (RBC) [Entitic mass] 31.8 pg 26.0 - 34.0 pg [facility] MCHC (RBC) [Mass/Vol] 34.1 % 32.0 - 36.0 % [facility] MCV (RBC) [Entitic vol] 93.3 fL 80.0 - 98.0 fL [facility] Platelet mean volume (Bld) [Entitic vol] 9.1 fL 7.4 - 12.4 fL [facility] Platelets (Bld) [#/Vol] 82 10*3/uL Low 140 - 440 10*3/uL [facility] RBC (Bld) [#/Vol] 3.16 10*6/uL Low 3.8 - 5.20 10*6/uL [facility] WBC (Bld) [#/Vol] 8.6 10*3/uL 3.6 - 10.7 10*3/uL [facility] IDNon 01-03-2023 IDN Problem: Knowledge Deficit Goal: [...] Goal: Assess Nutritional Intake Outcome: Progressing Normal [facility] Magnesiumon 01-03-2023 Magnesium [Mass/Vol] 2.3 mg/dL 1.6 - 2 .3 mg/dL [facility] Magnesium [Mass/Vol]on 01-03 Interpretation and review of laboratory results Normal [facility] No Panel Informationon 01-03 [facility] POCT glucose meteron 023 Glucose [Mass/Vol] 150 mg/dL High 70 - 100 mg/dL [facility] Interpretation and review of laboratory results Abnormal [facility] Performed by: [facility], [address] [place] [address] CLIA ID: [id number] [facility] Glucose [Mass/Vol] 135 mg/dL High 70 - 100 mg/dL [facility] Interpretation and review of laboratory results Abnormal [facility] Performed by: [facility], [address] [place] [address] CLIA ID: [id number] [facility] Glucose [Mass/Vol] 133 mg/dL High 70 - 100 mg/dL [facility] Interpretation and review of laboratory results Abnormal [facility] Performed by: [facility], [address] [place] [address] CLIA ID: [id number] [facility] PROTIME/INR & PTTon 01-04-20 23 aPTT Coag (PPP) [Time] 31.7 s High 20.0 - 30.5 s [facility] INR Coag (PPP) [Relative time] 1.1 {INR} 0.9 - 1.1 [facility] Comment on above: Recommended Anticoag ulant Therapy: [...] Interpretation and review of laboratory results Abnormal [facility] PT Coag (Bld) [Time] 11.6 s 9.0 - 12.0 s [facility] Progress Noteon 01-03-2023 Progress Note Department of Armor Officer al Medicine Division of Endocrinology, Diabetes, & Metabolism Endocrinology Note Patient Name: Lacy Alvarado : 1950 AGE: 72 y.o. Room/Bed: T1-103/T1-103 A Admission Date: 01/01/2023 Visit Date: 01/03/2023 Reason for Endocrine Consult: post op heart Provider/Team Requesting Consult: edwin PCP: MAYDA GARCIA Outpt Grinder Outside Diameter: No ASSESSMENT: DM 2 with hyperglycemia without halfway insulin Stress hyperglycemia CAD s/p Cabgx4 PLAN: [...] Daily magn (more content not included)... Normal [facility] XR CHEST 1 VIEWon 01-03-2023 XR [...] Electronically Signed Date/Time: 01/03/2023 10:16 AM EDT [facility] XR Chest Single viewon 01-03 No significant change when compared with the previous study. Report Dictated on Electronically Signed By: Dino Jurado MD Electronically Signed Date/Time: 01/03/2023 10:16 AM EDT [facility] Patient Name: LACY SAVAGE : 1950 [...] There are degenerative changes of the spine. [facility] Dino Jurado MD - 01/03/2023 Patient Name: LACY ALVARADO : 1950 [facility]#: [id number] Exam Date/Time: 01/03/2023 05:54 Procedure: XR CHEST [...] Electronically Signed Date/Time: 01/03/2023 10:16 AM EDT [facility] Radiology Study observation (narrative) [facility] XR Chest Single viewOrdered By: Dino Jurado on 01-03-2023 [facility] Work Phone: [phone] 01-02-2023 [id number] [employer] following case for Discharge Needs. Normal [facility] Basic metabolic 1998 panelon 01-02-2023 Anion gap [Moles/Vol] 10 mmol/L 3 - 13 mmol/L [facility] Calcium [Mass/Vol] 8.7 mg/dL 8.4 - 10. 4 mg/dL [facility] Chloride [Moles/Vol] 107 mmol/L 98 - 10 7 mmol/L [facility] CO2 [Moles/Vol] 23 mmol/L 22 - 30 mmol/L [facility] Creatinine [Mass/Vol] 0.99 mg/dL 0.52 - 1.04 mg/dL [facility] GFR/1.73 sq M.predicted MDRD (S/P/Bld) [Vol rate/Area] 61.5 mL/min/{1.73_m2} - [facility] Comment on above: Calculation based on the Chronic Kidney Disease Epidemiology Collaboration (CKD-EPI) equation refit without adjustment for race Glucose [Mass/Vol] 104 mg/dL High 70 - 100 mg/dL [facility] Interpretation and review of laboratory results Abnormal [facility] Potassium [Moles/Vol] 4.5 mmol/L 3.5 - 5.1 mmol/L [facility] Sodium [Moles/Vol] 140 mmol/L 135 - 145 mmol/L [facility] Urea nitrogen [Mass/Vol] 20 mg/dL High 7 - 17 mg/dL [facility] Anion gap [Moles/Vol] 13 mmol/L 3 - 13 mmol/L [facility] Calcium [Mass/Vol] 8.3 mg/dL Low 8.4 - 10. 4 mg/dL [facility] Chloride [Moles/Vol] 107 mmol/L 98 - 10 7 mmol/L [facility] CO2 [Moles/Vol] 21 mmol/L Low 22 - 30 mmol/L [facility] Creatinine [Mass/Vol] 0.86 mg/dL 0.52 - 1.04 mg/dL [facility] GFR/1.73 sq M.predicted MDRD (S/P/Bld) [Vol rate/Area] 72.8 mL/min/{1.73_m2} - [facility] Comment on above: Calculation based on the Chronic Kidney Disease Epidemiology Collaboration (CKD-EPI) equation refit without adjustment for race Glucose [Mass/Vol] 134 mg/dL High 70 - 100 mg/dL [facility] Interpretation and review of laboratory results Abnormal [facility] Potassium [Moles/Vol] 4.5 mmol/L 3.5 - 5.1 mmol/L [facility] Sodium [Moles/Vol] 140 mmol/L 135 - 145 mmol/L [facility] Urea nitrogen [Mass/Vol] 19 mg/dL High 7 - 17 mg/dL [facility] CARECOORDon 01-02-[address] [facility] Care Managment Initi al Assessment Date: 01/02/2023 Patient Name: Lacy Alvarado : 1950 Patient Information Source of Information: Patient Cognition/Language: WFL - Within Functional Limits Permission given to speak with patient telecommunications sales representative/caregiver as indicated: Yes Confirmation of [...] Living Prescription Coverage: Yes Pharmacy Used: [facility] Medication Management: Independent Transportation/Shopping: Assistance Provider Transportation/Shopping [...] home care needs. Delores Mullins RN Normal [facility] CBC panel Auto (Bld)Ordered By: Maurilio Vidal on 01-02-2023 Erythrocyte distribution width (RBC) [Ratio] 16.8 % High 11.5 - 14.5 % [facility] Hematocrit (Bld) [Volume fraction] 25.7 % Low 35.0 - 47.0 % [facility] Hemoglobin (Bld) [Mass/Vol] 8.7 g/dL Low 11.7 - 16.0 g/dL [facility] Interpretation and review of laboratory results Abnormal [facility] MCH (RBC) [Entitic mass] 31.3 pg 26.0 - 34.0 pg [facility] MCHC (RBC) [Mass/Vol] 33.9 % 32.0 - 36.0 % [facility] MCV (RBC) [Entitic vol] 92.4 fL 80.0 - 98.0 fL [facility] Platelet mean volume (Bld) [Entitic vol] 9.0 fL 7.4 - 12.4 fL [facility] Platelets (Bld) [#/Vol] 80 10*3/uL Low 140 - 440 10*3/uL [facility] RBC (Bld) [#/Vol] 2.79 10*6/uL Low 3.8 - 5.20 10*6/uL [facility] WBC (Bld) [#/Vol] 6.1 10*3/uL 3.6 - 10.7 10*3/uL [facility] ECG 12 leadOrdered By: Slava Martins on 01-02-2023 Heart rate 95 /min bpm [facility] Work Phone: P Gregory 53 degrees [facility] Work Phone: [place] Interval 183 ms [facility] Work Phone: QRS Gregory 20 degrees [facility] Work Phone: QRSD Interval 86 ms [facility]: QT Interval 380 ms [facility] Work Phone: QTC Interval 480 ms [facility] Work Phone: T Wave Gregory 27 degrees [facility] Work Phone: [facility] Work Phone: ECG 12 leadon 01-02-2023 Sinus rhythm Electronically Signed On 01-02-2023 9:42:47 EDT by Michelle Stanley MD - 01/02/2023 IMPRESSION: Sinus rhythm Electronically Signed On 9-1-2023 9:42:47 EDT by [facility] Heart rate 102 /min bpm [facility] P Gregory 56 degrees [facility] [place] Interval 147 ms [facility] QRS Gregory 6 degrees [facility] QRSD Interval 70 ms [facility] QT Interval 332 ms [facility] QTC Interval 433 ms [facility] T Wave Gregory 29 degrees [facility] Sinus tachycardia Probable left atrial enlargement Minimal ST elevation, inferior leads Electronically Signed On 01-02-2023 8:55:59 EDT by Michelle Stanley MD - 01/02/2023 IMPRESSION: Sinus tachycardia Probable left atrial enlargement Minimal ST elevation, inferior leads Electronically Signed On 01-02-2023 8:55:59 EDT by [facility] ECG 12-LEADon 01-02-2023 ECG 12-LEAD IMPRESSION: Sinus rhythm Electronically Signed On 01-02-2023 9:42:[address] [facility] ECG 12-LEAD IMPRESSION: Sinus tachycardia Probable left atrial enlargement Minimal ST elevation, inferior leads Electronically Signed On 01-02-2023 8:55:[address] [facility] Magnesiumon 01-02-2023 Magnesium [Mass/Vol] 2.3 mg/dL 1.6 - 2 .3 mg/dL [facility] Magnesium [Mass/Vol]on 01-02 Interpretation and review of laboratory results Normal [facility] No Panel Informationon 01-02 [facility] POCT glucose meteron 023 Glucose [Mass/Vol] 116 mg/dL High 70 - 100 mg/dL [facility] Interpretation and review of laboratory results Abnormal [facility]: [facility], [address] [facility] [address] CLIA ID: [id number] [facility] Glucose [Mass/Vol] 121 mg/dL High 70 - 100 mg/dL [facility] Interpretation and review of laboratory results Abnormal [facility] Performed by: [facility], [address] [facility] [address] CLIA ID: [id number] [facility] Glucose [Mass/Vol] 121 mg/dL High 70 - 100 mg/dL [facility] Interpretation and review of laboratory results Abnormal [facility] Performed by: [facility], [address] [place] [address] CLIA ID: [id number] [facility] Glucose [Mass/Vol] 132 mg/dL High 70 - 100 mg/dL [facility] Interpretation and review of laboratory results Abnormal [facility] Performed by: [facility], [address] [place] [address] CLIA ID: [id number] [facility] Glucose [Mass/Vol] 132 mg/dL High 70 - 100 mg/dL [facility] Interpretation and review of laboratory results Abnormal [facility] Performed by: [facility], [address] [place] [address] CLIA ID: [id number] [facility] Glucose [Mass/Vol] 120 mg/dL High 70 - 100 mg/dL [facility] Interpretation and review of laboratory results Abnormal [facility] Performed by: [facility], [address] [place] [address] CLIA ID: [id number] [facility] Glucose [Mass/Vol] 145 mg/dL High 70 - 100 mg/dL [facility] Interpretation and review of laboratory results Abnormal [facility] Performed by: [facility], [address] [place] [address] CLIA ID: [id number] [facility] Glucose [Mass/Vol] 136 mg/dL High 70 - 100 mg/dL [facility] Interpretation and review of laboratory results Abnormal [facility] Performed by: [facility], [address] [place] [address] CLIA ID: [id number] [facility] Glucose [Mass/Vol] 118 mg/dL High 70 - 100 mg/dL [facility] Interpretation and review of laboratory results Abnormal [facility] Performed by: [facility], [address] [place] [address] CLIA ID: [id number] [facility] Glucose [Mass/Vol] 144 mg/dL High 70 - 100 mg/dL [facility] Interpretation and review of laboratory results Abnormal [facility] Performed by: [facility], [address] [place] [address] CLIA ID: [id number] [facility] Glucose [Mass/Vol] 153 mg/dL High 70 - 100 mg/dL [facility] Interpretation and review of laboratory results Abnormal [facility] Performed by: [facility], [address] [place] [address] CLIA ID: [id number] [facility] PROTIME/INR & PTTon 01-03-20 23 aPTT Coag (PPP) [Time] 30.9 s High 20.0 - 30.5 s [facility] INR Coag (PPP) [Relative time] 1.1 {INR} 0.9 - 1.1 [facility] Comment on above: Recommended Anticoag ulant [...] Interpretation and review of laboratory results Abnormal [facility] PT Coag (Bld) [Time] 11.9 s 9.0 - 12.0 s [facility] Progress Noteon 01-02-2023 Progress Note Physical Therapy Facility/Department: [facility] Physical Therapy Initial Evaluation NAME: Lacy [...] The primary encounter diagnosis was CAD in [place] artery. A diagnosis of Coronary artery disease involving coronary bypass graft, unspecified whether angina present, unspecified whether [place] or transplanted heart was also pertinent to this visit. has a past medical history of CHF (congestive heart failure) (CMS/HCC) ([facility]), Diabetes mellitus ([facility]), GERD (gastroesophageal reflux disease), Hyperlipidemia, Hypertension, RA (rheumatoid arthritis) ([facility]), Seizure ([facility]), Seizures ([facility]), and Sleep apnea. has a past surgical [...] / Caregiver Present: No Diagnosis: CAD in [place] artery s/p CABG on 01/01 Follows Commands: [...] with min (more content not included)... Normal [facility] Progress Note ---- -------- Attestation signed [...] Requesting Consult: cts PCP: MAYDA GARCIA Outpt Grinder Outside Diameter: No ASSESSMENT: Cad s/p Cabgx4 Dm2 with hyperglycemia without halfway insulin Stress hyperglycemia Chf Hld/htn PLAN: discontinue [...] Breath sounds: (more content not included)... Normal [facility] Progress Note ---- -------- Attestation signed [...] Milian. Patient was admitted on 12/18/22 to [facility] with CP history of CHF, CAD, DM [...] thrombocytopenia. Re (more content not included)... Normal [facility] XR CHEST 1 VIEWon 01-02-2023 XR CHEST 1 VIEW [facility] 1950 [id number] Exam Date/Time: 01/02/2023 05:15 Procedure: XR CHEST [...] Signed Date/Time: 01/02/2023 9:48 AM EDT Normal [facility] XR Chest Single viewon 01-02 Lines, [...] Electronically Signed Date/Time: 01/02/2023 9:48 AM T [facility] Patient Name: LACY SAVAGE : 1950 Exam Date/Time: 01/02/2023 05:15 Procedure: XR CHEST 1 VIEW Ordering Provider: WEAVER JENNIFER Reason For Exam: Shortness of breath EXAMINATION: CHEST RADIOGRAPH (SINGLE VIEW AP OR PA) Clinical History: Shortness of breath Comparison: Chest radiograph 01/01/2023 and 12/29/2022 RESULT: See impression [facility] Johan Erivn MD - 01/02/2023 Patient Name: LACY ALVARADO [...] Electronically Signed Date/Time: 01/02/2023 9:48 AM EDT [facility] Radiology Study observation (narrative) [facility] XR Chest Single viewOrdered By: Johan Ervin on 01-02-2023 [facility] [place] Work Phone: Basic metabolic 1998 panelon 01-01-2023 Anion gap [Moles/Vol] 10 mmol/L 3 - 13 mmol/L [facility] Calcium [Mass/Vol] 9.0 mg/dL 8.4 - 10. 4 mg/dL [facility] Chloride [Moles/Vol] 110 mmol/L High 98 - 10 7 mmol/L [facility] CO2 [Moles/Vol] 20 mmol/L Low 22 - 30 mmol/L [facility] Creatinine [Mass/Vol] 0.77 mg/dL 0.52 - 1.04 mg/dL [facility] GFR/1.73 sq M.predicted MDRD (S/P/Bld) [Vol rate/Area] 83.1 mL/min/{1.73_m2} - PINF [facility] Comment on above: Calculation based on the Chronic Kidney Disease Epidemiology Collaboration (CKD-EPI) equation refit without adjustment for race Glucose [Mass/Vol] 124 mg/dL High 70 - 100 mg/dL [facility] Potassium [Moles/Vol] 3.6 mmol/L 3.5 - 5.1 mmol/L [facility] Sodium [Moles/Vol] 140 mmol/L 135 - 145 mmol/L [facility] Urea nitrogen [Mass/Vol] 21 mg/dL High 7 - 17 mg/dL [facility] Blood gas, arterialOrdered B y: Arthur Lisa on 01-01-2023 Base excess Calc (Bld) [Moles/Vol] -3.3000 mmol/L Low -3.0 - 3.0 mmol/L [facility] CO2 (Bld) [Partial pressure] 30.7 mm[Hg] Low - PINF [facility] CO2 [Moles/Vol] 21.4 mmol/L Low 23.0 - 27.0 mmol/L [facility] HCO3 (Bld) [Moles/Vol] 20.4 mmol/L Low 21.0 - 25.0 mmol/L [facility] Hemoglobin (Bld) [Mass/Vol] 7.1 g/dL Screen Only [facility] Interpretation and review of laboratory results Abnormal [facility] Oxygen (Bld) [Partial pressure] 243.2 mm[Hg] High [facility] pH (Bld) 7.441 [pH] 7.350 - 7.450 [facility] Source Of Oxygen Vent [facility] CBC panel Auto (Bld)on 01-01 Erythrocyte distribution width (RBC) [Ratio] 14.2 % 11.5 - 14.5 % [facility] Hematocrit (Bld) [Volume fraction] 20.0 % Low 35.0 - 47.0 % [facility] Hemoglobin (Bld) [Mass/Vol] 6.9 g/dL Critically low 11.7 - 16.0 g/dL [facility] Interpretation and review of laboratory results Abnormal [facility] MCH (RBC) [Entitic mass] 33.1 pg 26.0 - 34.0 pg [facility] MCHC (RBC) [Mass/Vol] 34.3 % 32.0 - 36.0 % [facility] MCV (RBC) [Entitic vol] 96.7 fL 80.0 - 98.0 fL [facility] Platelet mean volume (Bld) [Entitic vol] 8.7 fL 7.4 - 12.4 fL [facility] Platelets (Bld) [#/Vol] 79 10*3/uL Low 140 - 440 10*3/uL [facility] RBC (Bld) [#/Vol] 2.07 10*6/uL Low 3.8 - 5.20 10*6/uL [facility] WBC (Bld) [#/Vol] 9.0 10*3/uL 3.6 - 10.7 10*3/uL [facility] Repeated [facility] CBC panel Auto (Bld)Ordered By: Sadie Jackson on 01-01-2023 Erythrocyte distribution width (RBC) [Ratio] 14.3 % 11.5 - 14.5 % [facility] Hematocrit (Bld) [Volume fraction] 21.4 % Low 35.0 - 47.0 % [facility] Hemoglobin (Bld) [Mass/Vol] 7.2 g/dL Low 11.7 - 16.0 g/dL [facility] Interpretation and review of laboratory results Abnormal [facility] MCH (RBC) [Entitic mass] 32.7 pg 26.0 - 34.0 pg [facility] MCHC (RBC) [Mass/Vol] 33.7 % 32.0 - 36.0 % [facility] MCV (RBC) [Entitic vol] 97.2 fL 80.0 - 98.0 fL [facility] Platelet mean volume (Bld) [Entitic vol] 9.0 fL 7.4 - 12.4 fL [facility] Platelets (Bld) [#/Vol] 78 10*3/uL Low 140 - 440 10*3/uL [facility] Comment on above: This result was prev iously suppressed from the chart. RBC (Bld) [#/Vol] 2.20 10*6/uL Low 3.8 - 5.20 10*6/uL [facility] WBC (Bld) [#/Vol] 7.1 10*3/uL 3.6 - 10.7 10*3/uL [facility] Calcium.ionized [Moles/Vol]o n 01-01-2023 Calcium.ionized (Bld) [Moles/Vol] 4.80 mg/dL 4.30 - 5.20 mg/dL [facility] Interpretation and review of laboratory results Normal [facility] PH, IONIZED CALCIUM 7.46 7.31 - 7.46 [facility] Consulton 01-01-2023 Consult ---- -------- [...] Requesting Consult: cts PCP: MAYDA GARCIA Outpt Grinder Outside Diameter: No ASSESSMENT: Cad s/p Cabgx4 Dm2 with hyperglycemia without byproducts extractor insulin Stress hyperglycemia Chf Hld/htn PLAN: Continue [...] times dana (more content not included)... Normal [facility] Consult ---- -------- Attestation signed by Carlos Chavarria DO at 01/01/2023 2:48 PM I have personally performed a [id number] diagnostic evaluation on this patient on date of service 01/01/23 . History, labs, imaging studies, and electronic medical record have been reviewed by me. This note documented by the []boiling house hand [x]SONYA reflects my history, exam, and medical [...] leak in CTs No Pacer wires -------- [facility]: Critical Care Consultation Note Date: 01/01/23 PATIENT NAME: Lacy Alvarado : 1950 (72 y.o.) Reason for Consult: Critical Care & Vent Management HPI: Lacy Alvarado is a 72 y.o. female was referred to us by Dr. Bhanu Milian. Patient was admitted on 12/18/22 to [facility] with CP history of CHF, CAD, DM [...] history of CHF (congestive heart failure) (CMS/HCC) ([facility]), Diabetes mellitus ([facility]), GERD (gastroesophageal reflux disease), Hyperlipidemia, Hypertension, RA (rheumatoid arthritis) ([facility]), Seizure ([facility]), Seizures ([facility]), and Sleep apnea. Past Surgical History: has [...] on 01/01/2023 12/24/22 Kassy Tabares APRN - COILED TUBING OPERATOR traMADol (Ultram) 50 MG tablet Take 50 mg by mouth. 11/28/21 Historical Provider, Surgery Hand Off: Arrival Time in [facility]: 1115 Complications/Pertinent Events: Last Paralytic: Medications given in route: Gtts OR report Propofol: 50 Insulin: 1 Amicar: 29 Current gtts upon arrival Propofol:50 Insulin: 1 Amicar: 29 Devices (more content not included)... [facility] FibrinogenOrdered By: Stephania dunlap on 01-01-2023 Fibrinogen Coag (PPP) [Mass/Vol] 149 mg/dL Low 200 - 400 mg/dL [facility] Fibrinogen Coag (PPP) [Mass/ Vol]Ordered By: Stephania Cummings on 01-01-2023 Interpretation and review of laboratory results Abnormal [facility] Hemoglobin (Bld) [Mass/Vol]O rdered By: Lety Decker on 01-01-2023 Hematocrit (Bld) [Volume fraction] 26.8 % Low 35.0 - 47.0 % [facility] Interpretation and review of laboratory results Abnormal [facility] Hemoglobin and hematocrit, b loodOrdered By: Lety Decker on 01-01-2023 Hemoglobin (Bld) [Mass/Vol] 9.1 g/dL Low 11.7 - 16.0 g/dL [facility] Magnesiumon 01-01-2023 Magnesium [Mass/Vol] 3.4 mg/dL High 1.6 - 2 .3 mg/dL [facility] No Panel Informationon 01-01 Blood Expiration Date [id number] [facility] Crossmatch interpretation COMP [facility] Dispense Status Transfused [facility] Product Blood Type 5100 [facility] PRODUCT CODE [id number] [facility] ABO O [facility] RH Positive [facility] Unit Volume 300 mL [facility] Interpretation and review of laboratory results Abnormal [facility] POCT glucose meteron 023 Glucose [Mass/Vol] 141 mg/dL High 70 - 100 mg/dL [facility] Interpretation and review of laboratory results Abnormal [facility]formed by: [facility], [address] [place] [address] CLIA ID: [id number] [facility] Glucose [Mass/Vol] 148 mg/dL High 70 - 100 mg/dL [facility] Interpretation and review of laboratory results Abnormal [facility] Performed by: [facility], [address] [place] [address] CLIA ID: [id number] [facility] Glucose [Mass/Vol] 138 mg/dL High 70 - 100 mg/dL [facility] Interpretation and review of laboratory results Abnormal [facility] Performed by: [facility], [address] [place] [address] CLIA ID: [id number] [facility] Glucose [Mass/Vol] 121 mg/dL High 70 - 100 mg/dL [facility] Interpretation and review of laboratory results Abnormal [facility] Performed by: [facility], [address] [place] [address] CLIA ID: [id number] [facility] Glucose [Mass/Vol] 142 mg/dL High 70 - 100 mg/dL [facility] Interpretation and review of laboratory results Abnormal [facility] Performed by: [facility], [address] [place] [address] CLIA ID: [id number] [facility] Glucose [Mass/Vol] 133 mg/dL High 70 - 100 mg/dL [facility] Interpretation and review of laboratory results Abnormal [facility] Performed by: [facility], [address] [place] [address] CLIA ID: [id number] [facility] Glucose [Mass/Vol] 152 mg/dL High 70 - 100 mg/dL [facility] Interpretation and review of laboratory results Abnormal [facility] Performed by: [facility], [address] [place] [address] CLIA ID: [id number] [facility] Glucose [Mass/Vol] 170 mg/dL High 70 - 100 mg/dL [facility] Interpretation and review of laboratory results Abnormal [facility] Performed by: [facility], [address] [place] [address] CLIA ID: [id number] [facility] Glucose [Mass/Vol] 120 mg/dL High 70 - 100 mg/dL [facility] Interpretation and review of laboratory results Abnormal [facility] Performed by: [facility], [address] [place] [address] CLIA ID: [id number] [facility] Glucose [Mass/Vol] 84 mg/dL 70 - 100 mg/dL [facility] Interpretation and review of laboratory results Normal [facility] Performed by: [facility], [address] [place] [address] CLIA ID: [id number] [facility] Glucose [Mass/Vol] 82 mg/dL 70 - 100 mg/dL [facility] Interpretation and review of laboratory results Normal [facility] Performed by: [facility], [address] [place] [address] CLIA ID: [id number] [facility] Glucose [Mass/Vol] 101 mg/dL High 70 - 100 mg/dL [facility] Interpretation and review of laboratory results Abnormal [facility] Performed by: [facility], [address] [place] [address] CLIA ID: [id number] [facility] Glucose [Mass/Vol] 125 mg/dL High 70 - 100 mg/dL [facility] Interpretation and review of laboratory results Abnormal [facility] Performed by: [facility] [employer], [address] [place] [address]447 CLIA ID: [id number] [facility] PROTIME/INR & PTTon 01-02-20 aPTT Coag (PPP) [Time] 24.2 s 20.0 - 30.5 s [facility] INR Coag (PPP) [Relative time] 1.3 {INR} High 0.9 - 1.1 [facility] Comment on above: Recommended Anticoag ulant [...] Interpretation and review of laboratory results Abnormal [facility] PT Coag (Bld) [Time] 14.0 s High 9.0 - 12.0 s [facility] Phosphate [Moles/Vol]on 12-04 Interpretation and review of laboratory results Normal [facility] Phosphate [Mass/Vol] 3.7 mg/dL 2.5 - 4 .5 mg/dL [facility] Prepare RBC: 2 Unitson 01-01 Unit Number [id number] [facility] Unit Number [id number] [facility] US Heart Transesophagealon 0 01-01-2023 Left Ventricle: [...] Echo Additional Conclusions No significant valvular abnormalities. [email or web address] [facility] XR CHEST 1 VIEWon 01-01-2023 XR CHEST 1 VIEW [facility] Name[facility] 1950 [id number] Exam Date/Time: 01/01/2023 13:18 Procedure: XR CHEST [...] Electronically Signed Date/Time: 01/01/2023 1:55 PM EDT [facility] XR Chest Single viewon 01-01 1. Status post thora cic surgery (CABG). 2. Line and tube placements as described. 3. Pulmonary vascular congestion without evidence of other acute cardiopulmonary process. Report Dictated on Electronically Signed By: Gómez Calvert MD Electronically Signed Date/Time: 01/01/2023 1:55 PM EDT [facility] Patient Name: [facility]AC[facility] 1950 [id number] Exam Date/Time: 01/01/2023 13:18 Procedure: XR CHEST [...] heart failure, infiltrate or pneumothorax is seen. [facility] Gómez Calvert MD - 01/01/2023 Patient Name: LACY ALVARADO : 1950 [id number] Exam Date/Time: 01/01/2023 13:18 Procedure: XR CHEST [...] Electronically Signed Date/Time: 01/01/2023 1:55 PM EDT [facility] Radiology Study observation (narrative) [facility] XR Chest Single viewOrdered By: Gómez Calvert on 01-01-2023 [facility] Work Phone: ECG 12-LEADon 12-30-2022 ECG 12-LEAD IMPRESSION: Sinus rhythm Probable left atrial enlargement Electronically Signed On 12-30-2022 8:43:39 EDT by Chris Franks [facility] XR CHEST 2 VIEWSon 3 XR CHEST 2 VIEWS Patient Name: LACY [facility]AVAGE : 1950 [id number] Exam Date/Time: 12/29/2022 15:44 Procedure: XR CHEST [...] Electronically Signed Date/Time: 12/30/2022 11:52 AM EDT [facility] PREPROCINSon 12-29-2022 PREPROCINS Medication List Accurate as [...] have specific questions, please call your surgeon. 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 TAKE THE H ELEVATOR TO THE FIRST FLOOR, TURN LEFT OFF THE ELEVATOR AND GO TO THE SAME DAY SURGERY REGISTRATION DESK TO CHECK IN [facility] 12-26-2022 36 Pre op teaching done with patient. Instructed to hold NSAIDS except Aspirin 7 days prior to surgery, hold Plavix 7 days prior to surgery, and not to take any medications day of surgery. Pharmacy confirmed. All questions answered. [facility] 3612-24-2022 36 Called spoke with patient, all questions answered [facility] 36 Surg proc orders michael patience, medications e-scribed - talked to patient, answered all questions. [place] [address]on 08-22-2023 36 Patient is scheduled for CABG on 01/01. Patient lives on the third floor and asking if she is able to climb all those stairs right after surgery? Please advise [phone] Normal [facility] Office Visiton 12-23-2022 Follow-up visit [id number] Villagomez 1950 F Date Provider Department Center 12/23/2022 [id number] [facility] None No family history on file Level of Service:88621 [place] OFFICE/OUTPATIENT NEW HIGH MDM 60-74 MINUTES Reason for Visit and Comments: New Patient [542] Normal [facility] Progress Noteon 12-23-2022 Progress Note [facility] SURGERY [address] [facility] [address] Dept: [phone] Dept Loc: [phone] Visit type: New Reason for Visit: Multivessel [...] Milian. Patient was admitted on 12/18/22 to [facility] with CP. Per notes, patient has a [...] CT Abdomen (more content not included)... Normal [facility] Glucose Glucometer (BldC) [M ass/Vol]Ordered By: Edwin Kaplan on 12-19-2022 Glucose [Mass/Vol] 101 mg/dL 74-106 [facility] Comment on above: MANAGEMENT OF PATIEN T CARE PER NURSING PROTOCOL Absolute lymphocyte countOrd ered By: Turner Armendariz on 12-18-2022 Lymphocytes Auto (Unsp spec) [#/Vol] 2.22 10*3/uL 0.83-4.51 [facility] Basophil percentageOrdered B y: Turner Armendariz on 12-18-2022 Basophil percentage 144 mg/dL 74-106 [facility] Basophil percentage 141 mmol/L 136-145 [facility] Basophil percentage 4.0 mmol/L 3.5-5.1 [facility] Basophil percentage 108 mmol/L 98-107 [facility] Basophils (Bld) [#/Vol] 4.9 10*3/uL 4.4-11.0 [facility] Basophils (Bld) [#/Vol] 2.2 10*3/uL 2.0-7.7 [facility] Basophils/100 WBC (Bld) 0.4 % 0-1 [facility] Basophils/100 WBC (Bld) 43.9 % 47-70 [facility] Basophils/100 WBC (Bld) 2.4 % 0-5 [facility] Chloride [Moles/Vol] 108 mmol/L 98-107 [facility] Eosinophils/100 WBC (Bld) 2.4 % 0-5 [facility] Glucose [Mass/Vol] 144 mg/dL 74-106 [facility] Comment on above: Fasting Glucose resu lt greater than or equal to 126 mg/dL suggests DIABETES MELLITUS per A.D.A. criteria. Neutrophils (Bld) [#/Vol] 2.2 10*3/uL 2.0-7.7 [facility] Neutrophils/100 WBC (Bld) 43.9 % 47-70 [facility] Potassium [Moles/Vol] 4.0 mmol/L 3.5-5.1 [facility] Sodium [Moles/Vol] 141 mmol/L 136-145 [facility] WBC (Bld) [#/Vol] 4.9 10*3/uL 4.4-11.0 [facility] Blood erythrocytes count (nu mber/volume)Ordered By: Turner Armendariz on 12-18-2022 RBC (Bld) [#/Vol] 3.32 10*6/uL 4.2-5.4 [facility] Blood hemoglobin measurement (mass/volume)Ordered By: Turner Amrendariz on 12-18-2022 Hemoglobin (Bld) [Mass/Vol] 10.8 g/dL 12.0-15.0 [facility] Blood lymphocytes/100 leukoc ytesOrdered By: Turner Armendariz on 12-18-2022 Lymphocytes/100 WBC (Bld) 45.0 % 19-41 [facility] Blood monocytes/100 leukocyt esOrdered By: Turner Armendariz on 12-18-2022 Monocytes/100 WBC (Bld) 8.1 % 0-10 [facility] Blood platelet mean volumeOr dered By: Turner Armendariz on 12-18-2022 Platelet mean volume (Bld) [Entitic vol] 10.7 fL 6.2-12.0 [facility] Determination of erythrocyte mean corpuscular volume (MCV)Ordered By: Turner Armendariz on 12-18-2022 MCV (RBC) [Entitic vol] 99.1 fL 81-99 [facility] Hematocrit Auto (Bld) [Volum e fraction]Ordered By: Turner Armendariz on 12-18-2022 Hematocrit (Bld) [Volume fraction] 32.9 % 37-47 [facility] INR in Blood by Coagulation assayOrdered By: Jossue Boyd on 12-18-2022 INR Coag (Bld) [Relative time] 1.0 {INR} [facility] Laboratory - Chemistry and C hemistry - challengeOrdered By: Turner Armendariz on 12-18-2022 CO2 [Moles/Vol] 29.0 mmol/L 21.0-32.0 [facility] Urea nitrogen/Creatinine [Mass ratio] 27.6 mg/mg 10-20 [facility] - CoagulationOrde red By: Jossue Boyd on 12-18-2022 aPTT Coag (Bld) [Time] 27.4 s 24.1-36.2 [facility] PT Coag (PPP) [Time] 12.8 s 11.7-14.9 [facility] Laboratory - Hematology and Cell countsOrdered By: Turner Armendariz on 12-18-2022 Erythrocyte distribution width (RBC) [Entitic vol] 50.8 fL 35.1-43.9 [facility] Erythrocyte distribution width (RBC) [Ratio] 13.9 % 11.6-14.6 [facility] Immature granulocytes/100 WBC (Bld) 0.200 % 0.0-0.9 [facility] Comment on above: IG% - Immature Granu locytes (promyelocytes, myelocytes and metamyelocytes) > 1% indicates that a LEFT SHIFT is Present. MCH (RBC) [Entitic mass] 32.5 pg 27.0-32.0 [facility] Nucleated RBC/100 WBC (Bld) [Ratio] 0 % 0-5 [facility] MCHC Auto (RBC) [Mass/Vol]Or dered By: Turner Armendariz on 12-18-2022 MCHC (RBC) [Mass/Vol] 32.8 g/dL 32-36 [facility] No Panel InformationOrdered By: Edwin Kaplan on 12-18-2022 Troponin I High Sensitivity 5 pg/mL 3.0-54.0 [facility] Comment on above: Please Note: New Gina t Units and Gender Specific Reference Ranges. For more information see Policy Stat Procedure [place] High Sensitivity Troponin (TNIH) and attachments. 5 pg/mL 3.0-54.0 [facility] No Panel InformationOrdered By: Turner Armendariz on 12-18-2022 Troponin I High Sensitivity 5 pg/mL 3.0-54.0 [facility] Comment on above: Please Note: New Gina t Units and Gender Specific Reference Ranges. For more information see Policy Stat Procedure [place] High Sensitivity Troponin (TNIH) and attachments. D-Dimer Quantitative (PE/DVT) 0.31 FEU/ug/m 0.27-0.49 [facility] Comment on above: NORMAL D-Dimer level (<0.50) indicates no DVT or PE. Estimated Creatinine Clearance Calc 71.34 ml/min [facility] Estimated GFR (MDRD) Amer 79 mL/min >60 [facility] Comment on above: GFR Calc Estimated GFR (MDRD) Non-Af Amer 65 mL/min >60 [facility] Comment on above: Non- GFR Calc 32.5 pg 27.0-32.0 [facility] 13.9 % 11.6-14.6 [facility] 50.8 fl 35.1-43.9 [facility] 0.200 % 0.0-0.9 [facility] 0 % 0-5 [facility] 0.31 FEU/ug/m 0.27-0.49 [facility] 65 mL/min >60 [facility] 79 mL/min >60 [facility] 71.34 ml/min [facility] 27.6 RATIO 10-20 [facility] 29.0 mmol/L 21.0-32.0 [facility] No Panel InformationOrdered By: Jossue Boyd on 12-18-2022 12.8 SECONDS 11.7-14.9 [facility] 27.4 Seconds 24.1-36.2 [facility] Platelets bldOrdered By: Natalie Armendariz on 12-18-2022 Platelets (Bld) [#/Vol] 183 10*3/uL 150-450 [facility] Serum or plasma calcium loretta urement (mass/volume)Ordered By: Turner Quinonesdavid on 12-18-2022 Calcium [Mass/Vol] 8.5 mg/dL 8.5-10.1 [facility] Serum or plasma creatinine m easurement (mass/volume)Ordered By: Turner Quinonesdavid on 12-18-2022 Creatinine [Mass/Vol] 0.90 mg/dL 0.55-1.02 [facility] Comment on above: The validity of the calculated GFR & GFRAA in patients over 70 years has not been determined. Clinical correlation is essential. Serum or plasma urea nitroge n measurement (mass/volume)Ordered By: Turner Quinonesdavid on 12-18-2022 Urea nitrogen [Mass/Vol] 25 mg/dL 7-18 [facility] Thin prep Papanicolaou smear with manual screeningOrdered By: Turner Quinonesdavid on 12-18-2022 Thin prep Papanicolaou smear with manual screening 4 5-15 [facility] Laboratory - Hematology and Cell countson 12-11-2022 HbA1c (Bld) [Mass fraction] 6.6 % 4.2-6.3 [facility] No Panel Informationon 12-11 6.6 % 4.2-6.3 [facility] Basophil percentageOrdered B y: Dr. Garcia on 10-01-2022 Chloride [Moles/Vol] 113 mmol/L 98-107 [facility] Glucose [Mass/Vol] 114 mg/dL 74-106 [facility] Comment on above: Fasting Glucose resu lt from 100 to 125 mg/dL suggests IMPAIRED HOMEOSTASIS per A.D.A. criteria. Potassium [Moles/Vol] 3.8 mmol/L 3.5-5.1 [facility] Sodium [Moles/Vol] 144 mmol/L 136-145 [facility] Laboratory - Chemistry and C hemistry - challengeOrdered By: Dr. Garcia on 10-01-2022 CO2 [Moles/Vol] 25.0 mmol/L 21.0-32.0 [facility] Urea nitrogen/Creatinine [Mass ratio] 26.3 mg/mg 10-20 [facility] No Panel InformationOrdered By: Dr. Garcia on 10-01-2022 Estimated GFR (MDRD) Amer 92 mL/min >60 [facility] Comment on above: GFR Calc Estimated GFR (MDRD) Non-Af Amer 76 mL/min >60 [facility] Comment on above: Non- GFR Calc Valproic Acid (Depakene) Level 36 ug/mL 50-100 [facility] Serum or plasma calcium loretta urement (mass/volume)Ordered By: Dr. Garcia on 10-01-2022 Calcium [Mass/Vol] 8.6 mg/dL 8.5-10.1 [facility] Serum or plasma creatinine m easurement (mass/volume)Ordered By: Dr. Garcia on 10-01-2022 Creatinine [Mass/Vol] 0.80 mg/dL 0.55-1.02 [facility] Comment on above: The validity of the calculated GFR & GFRAA in patients over 70 years has not been determined. Clinical correlation is essential. Serum or plasma urea nitroge n measurement (mass/volume)Ordered By: Dr. Garcia on 10-01-2022 Urea nitrogen [Mass/Vol] 21 mg/dL 7-18 [facility] Thin prep Papanicolaou smear with manual screeningOrdered By: Dr. Garcia on 10-01-2022 Thin prep Papanicolaou smear with manual screening 6 5-15 [facility] Whole blood hemoglobin A1c/t otal hemoglobin ratio (mass fraction)Ordered By: Dr. Garcia on 10-01-2022 HbA1c (Bld) [Mass fraction] 7.0 % 3.8-5.6 [facility] Comment on above: Normal < 5.7 % Predi abetic 5.7 - 6.4 % Diabetic >or= 6.5 % Please note range changes. Absolute lymphocyte countOrd ered By: Dr. Freeman on 08-13-2022 Lymphocytes Auto (Unsp spec) [#/Vol] 2.73 10*3/uL 0.83-4.51 [facility] Basophil percentageOrdered B y: Dr. Freeman on 08-13-2022 Basophils/100 WBC (Bld) 0.6 % 0-1 [facility] Bilirubin [Mass/Vol] 0.20 mg/dL 0.20-1.00 [facility] Comment on above: For patients on eltr ombopag therapy, use of Dimension [place] TBIL is not recommended. Chloride [Moles/Vol] 114 mmol/L 98-107 [facility] Eosinophils/100 WBC (Bld) 2.1 % 0-5 [facility] Glucose [Mass/Vol] 143 mg/dL 74-106 [facility] Comment on above: Fasting Glucose resu lt greater than or equal to 126 mg/dL suggests DIABETES MELLITUS per A.D.A. criteria. Neutrophils (Bld) [#/Vol] 2.8 10*3/uL 2.0-7.7 [facility] Neutrophils/100 WBC (Bld) 45.6 % 47-70 [facility] Potassium [Moles/Vol] 3.7 mmol/L 3.5-5.1 [facility] Protein [Mass/Vol] 7.6 g/dL 6.4-8.2 [facility] Sodium [Moles/Vol] 140 mmol/L 136-145 [facility] WBC (Bld) [#/Vol] 6.2 10*3/uL 4.4-11.0 [facility] Blood erythrocytes count (nu mber/volume)Ordered By: Dr. Freeman on 08-13-2022 RBC (Bld) [#/Vol] 4.08 10*6/uL 4.2-5.4 [facility] Blood hemoglobin measurement (mass/volume)Ordered By: Dr. Freeman on 08-13-2022 Hemoglobin (Bld) [Mass/Vol] 12.8 g/dL 12.0-15.0 [facility] Blood lymphocytes/100 leukoc ytesOrdered By: Dr. Freeman on 08-13-2022 Lymphocytes/100 WBC (Bld) 44.1 % 19-41 [facility] Blood monocytes/100 leukocyt esOrdered By: Dr. Freeman on 08-13-2022 Monocytes/100 WBC (Bld) 7.4 % 0-10 [facility] Blood platelet mean volumeOr dered By: Dr. Freeman on 08-13-2022 Platelet mean volume (Bld) [Entitic vol] 10.6 fL 6.2-12.0 [facility] Determination of erythrocyte mean corpuscular volume (MCV)Ordered By: Dr. Freeman on 08-13-2022 MCV (RBC) [Entitic vol] 99.3 fL 81-99 [facility] Hematocrit Auto (Bld) [Volum e fraction]Ordered By: Dr. Freeman on 08-13-2022 Hematocrit (Bld) [Volume fraction] 40.5 % 37-47 [facility] Laboratory - Chemistry and C hemistry - challengeOrdered By: Dr. Freeman on 08-13-2022 ALP [Catalytic activity/Vol] 103 U/L 45-117 [facility] ALT [Catalytic activity/Vol] 32 U/L 13-56 [facility] CO2 [Moles/Vol] 22.0 mmol/L 21.0-32.0 [facility] Globulin (S) [Mass/Vol] 4.0 g/dL 2.2-4.2 [facility] Urea nitrogen/Creatinine [Mass ratio] 18.8 mg/mg 10-20 [facility] - Hematology and Cell countsOrdered By: Dr. Freeman on 08-13-2022 Erythrocyte distribution width (RBC) [Entitic vol] 49.6 fL 35.1-43.9 [facility] Erythrocyte distribution width (RBC) [Ratio] 13.5 % 11.6-14.6 [facility] Immature granulocytes/100 WBC (Bld) 0.200 % 0.0-0.9 [facility] Comment on above: IG% - Immature Granu locytes (promyelocytes, myelocytes and metamyelocytes) > 1% indicates that a LEFT SHIFT is Present. MCH (RBC) [Entitic mass] 31.4 pg 27.0-32.0 [facility] Nucleated RBC/100 WBC (Bld) [Ratio] 0 % 0-5 [facility] MCHC Auto (RBC) [Mass/Vol]Or dered By: Dr. Freeman on 08-13-2022 MCHC (RBC) [Mass/Vol] 31.6 g/dL 32-36 [facility] No Panel InformationOrdered By: Dr. Freeman on 08-13-2022 Estimated Creatinine Clearance Calc 41.58 ml/min [facility] Estimated GFR (MDRD) Amer 70 mL/min >60 [facility] Comment on above: GFR Calc Estimated GFR (MDRD) Non-Af Amer 58 mL/min >60 [facility] Comment on above: Non- GFR Calc Valproic Acid (Depakene) Level 38 ug/mL 50-100 [facility] Platelets bldOrdered By: Dr. Freeman on 08-13-2022 Platelets (Bld) [#/Vol] 207 10*3/uL 150-450 [facility] Serum or plasma albumin loretta urement (mass/volume)Ordered By: Dr. Freeman on 08-13-2022 Albumin [Mass/Vol] 3.6 g/dL 3.2-5.0 [facility] Serum or plasma albumin/glob ulin mass ratioOrdered By: Dr. Freeman on 08-13-2022 Albumin/Globulin [Mass ratio] 0.9 {ratio} 0.9-2.4 [facility] Serum or plasma calcium loretta urement (mass/volume)Ordered By: Dr. Freeman on 08-13-2022 Calcium [Mass/Vol] 8.5 mg/dL 8.5-10.1 [facility] Serum or plasma creatinine m easurement (mass/volume)Ordered By: Dr. Freeman on 08-13-2022 Creatinine [Mass/Vol] 1.01 mg/dL 0.55-1.02 [facility] Comment on above: The validity of the calculated GFR & GFRAA in patients over 70 years has not been determined. Clinical correlation is essential. Serum or plasma urea nitroge n measurement (mass/volume)Ordered By: Dr. Freeman on 08-13-2022 Urea nitrogen [Mass/Vol] 19 mg/dL 7-18 [facility] Thin prep Papanicolaou smear with manual screeningOrdered By: Dr. Freeman on 08-13-2022 Thin prep Papanicolaou smear with manual screening 28 U/L 15-37 [facility] Thin prep Papanicolaou smear with manual screening 4 5-15 [facility] - Hematology and Cell countson 06-30-2022 HbA1c (Bld) [Mass fraction] 6.8 % 4.2-6.3 [facility] Culture, urineOrdered By: Dr Yoko Chan on 06-07-2022 Bacteria identified Cx Nom (U) Mixed Gram Pos & Gram Neg Org [facility] Absolute lymphocyte countOrd ered By: Dr. Chan on 06-06-2022 Lymphocytes Auto (Unsp spec) [#/Vol] 1.11 10*3/uL 0.83-4.51 [facility] Basophil percentageOrdered B y: Dr. Chan on 06-06-2022 Basophil percentage 0 SEEN /hpf 0-5 [facility] Basophils/100 WBC (Bld) 0.4 % 0-1 [facility] Bilirubin [Mass/Vol] 0.30 mg/dL 0.20-1.00 [facility] Comment on above: For patients on eltr ombopag therapy, use of Dimension [place] TBIL is not recommended. Chloride [Moles/Vol] 107 mmol/L 98-107 [facility] Eosinophils/100 WBC (Bld) 1.5 % 0-5 [facility] Glucose [Mass/Vol] 117 mg/dL 74-106 [facility] Comment on above: Fasting Glucose resu lt from 100 to 125 mg/dL suggests IMPAIRED HOMEOSTASIS per A.D.A. criteria. Neutrophils (Bld) [#/Vol] 4.0 10*3/uL 2.0-7.7 [facility] Neutrophils/100 WBC (Bld) 72.8 % 47-70 [facility] Potassium [Moles/Vol] 4.2 mmol/L 3.5-5.1 [facility] Protein [Mass/Vol] 7.9 g/dL 6.4-8.2 [facility] Sodium [Moles/Vol] 142 mmol/L 136-145 [facility] WBC (Bld) [#/Vol] 5.4 10*3/uL 4.4-11.0 [facility] Bilirubin Test strip Ql (U)O rdered By: Dr. Chan on 06-06-2022 Bilirubin Ql (U) Negative Negative [facility] Blood erythrocytes count (nu mber/volume)Ordered By: Dr. Chan on 06-06-2022 RBC (Bld) [#/Vol] 3.83 10*6/uL 4.2-5.4 [facility] Blood hemoglobin measurement (mass/volume)Ordered By: Dr. Chan on 06-06-2022 Hemoglobin (Bld) [Mass/Vol] 11.9 g/dL 12.0-15.0 [facility] Blood lymphocytes/100 leukoc ytesOrdered By: Dr. Chan on 06-06-2022 Lymphocytes/100 WBC (Bld) 20.4 % 19-41 [facility] Blood monocytes/100 leukocyt esOrdered By: Dr. Chan on 06-06-2022 Monocytes/100 WBC (Bld) 4.0 % 0-10 [facility] Blood platelet mean volumeOr dered By: Dr. Chan on 06-06-2022 Platelet mean volume (Bld) [Entitic vol] 10.1 fL 6.2-12.0 [facility] Determination of erythrocyte mean corpuscular volume (MCV)Ordered By: Dr. Chan on 06-06-2022 MCV (RBC) [Entitic vol] 96.6 fL 81-99 [facility] Hematocrit Auto (Bld) [Volum e fraction]Ordered By: Dr. Chan on 06-06-2022 Hematocrit (Bld) [Volume fraction] 37.0 % 37-47 [facility] Ketones Test strip Ql (U)Ord ered By: Dr. Chan on 06-06-2022 Ketones Ql (U) 15 mg/dl Negative [facility] Laboratory - Chemistry and C hemistry - challengeOrdered By: Dr. Chan on 06-06-2022 ALP [Catalytic activity/Vol] 88 U/L 45-117 [facility] ALT [Catalytic activity/Vol] 28 U/L 13-56 [facility] CO2 [Moles/Vol] 26.0 mmol/L 21.0-32.0 [facility] Globulin (S) [Mass/Vol] 4.4 g/dL 2.2-4.2 [facility] Urea nitrogen/Creatinine [Mass ratio] 29.2 mg/mg 10-20 [facility] - Hematology and Cell countsOrdered By: Dr. Chan on 06-06-2022 Erythrocyte distribution width (RBC) [Entitic vol] 48.0 fL 35.1-43.9 [facility] Erythrocyte distribution width (RBC) [Ratio] 13.3 % 11.6-14.6 [facility] Immature granulocytes/100 WBC (Bld) 0.900 % 0.0-0.9 [facility] Comment on above: IG% - Immature Granu locytes (promyelocytes, myelocytes and metamyelocytes) > 1% indicates that a LEFT SHIFT is Present. MCH (RBC) [Entitic mass] 31.1 pg 27.0-32.0 [facility] Nucleated RBC/100 WBC (Bld) [Ratio] 0 % 0-5 [facility] MCHC Auto (RBC) [Mass/Vol]Or dered By: Dr. Chan on 06-06-2022 MCHC (RBC) [Mass/Vol] 32.2 g/dL 32-36 [facility] Mucus LM Ql (Urine sed)Order ed By: Dr. Chan on 06-06-2022 Mucus Ql (Urine sed) 0 SEEN /hpf [facility] Nitrite Test strip Ql (U)Ord ered By: Dr. Chan on 06-06-2022 Nitrite Ql (U) Negative Negative [facility] No Panel InformationOrdered By: Dr. Chan on 06-06-2022 Troponin I High Sensitivity 14 pg/mL 3.0-54.0 [facility] Comment on above: Please Note: New Gina t Units and Gender Specific Reference Ranges. For more information see Policy Stat Procedure [place] High Sensitivity Troponin (TNIH) and attachments. Estimated Creatinine Clearance Calc 39.62 ml/min [facility] Estimated GFR (MDRD) Amer 66 mL/min >60 [facility] Comment on above: GFR Calc Estimated GFR (MDRD) Non-Af Amer 55 mL/min >60 [facility] Comment on above: Non- GFR Calc Valproic Acid (Depakene) Level 62 ug/mL 50-100 [facility] Platelets bldOrdered By: Dr. Chan on 06-06-2022 Platelets (Bld) [#/Vol] 248 10*3/uL 150-450 [facility] Protein Test strip Ql (U)Ord ered By: Dr. Chan on 06-06-2022 Protein Ql (U) 15 mg/dl Negative [facility] Serum or plasma albumin loretta urement (mass/volume)Ordered By: Dr. Chan on 06-06-2022 Albumin [Mass/Vol] 3.5 g/dL 3.2-5.0 [facility] Serum or plasma albumin/glob ulin mass ratioOrdered By: Dr. Chan on 06-06-2022 Albumin/Globulin [Mass ratio] 0.8 {ratio} 0.9-2.4 [facility] Serum or plasma calcium loretta urement (mass/volume)Ordered By: Dr. Chan on 06-06-2022 Calcium [Mass/Vol] 9.1 mg/dL 8.5-10.1 [facility] Serum or plasma creatinine m easurement (mass/volume)Ordered By: Dr. Chan on 06-06-2022 Creatinine [Mass/Vol] 1.06 mg/dL 0.55-1.02 [facility] Comment on above: The validity of the calculated GFR & GFRAA in patients over 70 years has not been determined. Clinical correlation is essential. Serum or plasma urea nitroge n measurement (mass/volume)Ordered By: Dr. Chan on 06-06-2022 Urea nitrogen [Mass/Vol] 31 mg/dL 7-18 [facility] Squamous epithelial cells de tection in urine sediment by light microscopyOrdered By: Dr. Chan on 06-06-2022 Epithelial cells.squamous LM Ql (Urine sed) 0-5 SEEN /hpf 5-10 [facility] Thin prep Papanicolaou smear with manual screeningOrdered By: Dr. Chan on 06-06-2022 Thin prep Papanicolaou smear with manual screening 16 U/L 15-37 [facility] Thin prep Papanicolaou smear with manual screening 9 5-15 [facility] Urine blood detectionOrdered By: Dr. Chan on 06-06-2022 RBC Ql (U) Negative Negative [facility] RBC Ql (U) 0 SEEN /hpf 0-5 [facility] Urine clarityOrdered By: Dr. Chan on 06-06-2022 Clarity (U) Clear Clear [facility] Urine color determinationOrd ered By: Dr. Chan on 06-06-2022 Color (U) Yellow Yellow [facility] Urine glucose detectionOrder ed By: Dr. Chan on 06-06-2022 Glucose Ql (U) Normal mg/dl Normal [facility] Urine leukocyte esterase det ection by dipstickOrdered By: Dr. Chan on 06-06-2022 Leukocyte esterase Test strip Ql (U) 100 /ul Negative [facility] Urine pHOrdered By: Dr. Giron 06-06-2022 pH (U) 6.0 [pH] 5.0 - 8.0 [facility] Urine sediment bacteria coun t by microscopy (number/high power field)Ordered By: Dr. Chan on 06-06-2022 Bacteria LM.HPF (Urine sed) [#/Area] 0 /[HPF] None Seen [facility] Urine specific gravity measu rementOrdered By: Dr. Chan on 06-06-2022 Specific gravity (U) [Rel density] 1.020 1.002-1.030 [facility] Urobilinogen Auto test strip Ql (U)Ordered By: Dr. Chan on 06-06-2022 Urobilinogen Ql (U) Normal mg/dl Normal [facility] - Microbiology an d Antimicrobial susceptibilityOrdered By: Dr. Garcia on 05-06-2022 SARS-CoV-2 (COVID-19) RNA GERONIMO+probe Ql (Unsp spec) Not detected Not Detect [facility] Comment on above: Normal Reference Ran ge: [...] Auto (Unsp spec) [#/Vol] 1.49 10*3/uL 0.83-4.51 [facility] Basophil percentageOrdered B y: Dr. Garcia on 03-14-2022 Basophil percentage 0 SEEN /hpf 0-5 [facility] Basophils/100 WBC (Bld) 0.3 % 0-1 [facility] Bilirubin [Mass/Vol] 0.30 mg/dL 0.20-1.00 [facility] Comment on above: For patients on eltr ombopag therapy, use of Dimension [place] TBIL is not recommended. Chloride [Moles/Vol] 108 mmol/L 98-107 [facility] Eosinophils/100 WBC (Bld) 1.5 % 0-5 [facility] Glucose [Mass/Vol] 125 mg/dL 74-106 [facility] Comment on above: Fasting Glucose resu lt from 100 to 125 mg/dL suggests IMPAIRED HOMEOSTASIS per A.D.A. criteria. Lactate [Moles/Vol] 3.2 mmol/L 0.4-2.0 [facility] Comment on above: Critical Result(s) C alled at: 18:20:28 03/14/2022 by: tommy PHILLIPS RN ED. Results read back by same. Neutrophils (Bld) [#/Vol] 4.0 10*3/uL 2.0-7.7 [facility] Neutrophils/100 WBC (Bld) 66.8 % 47-70 [facility] Potassium [Moles/Vol] 4.1 mmol/L 3.5-5.1 [facility] Protein [Mass/Vol] 7.5 g/dL 6.4-8.2 [facility] Sodium [Moles/Vol] 141 mmol/L 136-145 [facility] WBC (Bld) [#/Vol] 6.0 10*3/uL 4.4-11.0 [facility] Bilirubin Test strip Ql (U)O rdered By: Dr. Garcia on 03-14-2022 Bilirubin Ql (U) Negative Negative [facility] Blood erythrocytes count (nu mber/volume)Ordered By: Dr. Garcia on 03-14-2022 RBC (Bld) [#/Vol] 3.71 10*6/uL 4.2-5.4 [facility] Blood hemoglobin measurement (mass/volume)Ordered By: Dr. Garcia on 03-14-2022 Hemoglobin (Bld) [Mass/Vol] 11.6 g/dL 12.0-15.0 [facility] Blood lymphocytes/100 leukoc ytesOrdered By: Dr. Garcia on 03-14-2022 Lymphocytes/100 WBC (Bld) 24.8 % 19-41 [facility] Blood monocytes/100 leukocyt esOrdered By: Dr. Garcia on 03-14-2022 Monocytes/100 WBC (Bld) 6.3 % 0-10 [facility] Blood platelet mean volumeOr dered By: Dr. Garcia on 03-14-2022 Platelet mean volume (Bld) [Entitic vol] 9.9 fL 6.2-12.0 [facility] Determination of erythrocyte mean corpuscular volume (MCV)Ordered By: Dr. Garcia on 03-14-2022 MCV (RBC) [Entitic vol] 96.2 fL 81-99 [facility] Hematocrit Auto (Bld) [Volum e fraction]Ordered By: Dr. Garcia on 03-14-2022 Hematocrit (Bld) [Volume fraction] 35.7 % 37-47 [facility] Ketones Test strip Ql (U)Ord ered By: Dr. Garcia on 03-14-2022 Ketones Ql (U) 15 mg/dl Negative [facility] Laboratory - Chemistry and C hemistry - challengeOrdered By: Dr. Garcia on 03-14-2022 ALP [Catalytic activity/Vol] 84 U/L 45-117 [facility] ALT [Catalytic activity/Vol] 32 U/L 13-56 [facility] CO2 [Moles/Vol] 25.0 mmol/L 21.0-32.0 [facility] Globulin (S) [Mass/Vol] 4.2 g/dL 2.2-4.2 [facility] Urea nitrogen/Creatinine [Mass ratio] 22.6 mg/mg 10-20 [facility] - Hematology and Cell countsOrdered By: Dr. Garcia on 03-14-2022 Erythrocyte distribution width (RBC) [Entitic vol] 47.1 fL 35.1-43.9 [facility] Erythrocyte distribution width (RBC) [Ratio] 13.2 % 11.6-14.6 [facility] Immature granulocytes/100 WBC (Bld) 0.300 % 0.0-0.9 [facility] Comment on above: IG% - Immature Granu locytes (promyelocytes, myelocytes and metamyelocytes) > 1% indicates that a LEFT SHIFT is Present. MCH (RBC) [Entitic mass] 31.3 pg 27.0-32.0 [facility] Nucleated RBC/100 WBC (Bld) [Ratio] 0 % 0-5 [facility] MCHC Auto (RBC) [Mass/Vol]Or dered By: Dr. Garcia on 03-14-2022 MCHC (RBC) [Mass/Vol] 32.5 g/dL 32-36 [facility] Mucus LM Ql (Urine sed)Order ed By: Dr. Garcia on 03-14-2022 Mucus Ql (Urine sed) 0 SEEN /hpf [facility] Nitrite Test strip Ql (U)Ord ered By: Dr. Garcia on 03-14-2022 Nitrite Ql (U) Negative Negative [facility] No Panel InformationOrdered By: Dr. Garcia on 03-14-2022 Estimated Creatinine Clearance Calc 45.15 ml/min [facility] Estimated GFR (MDRD) Amer 77 mL/min >60 [facility] Comment on above: GFR Calc Estimated GFR (MDRD) Non-Af Amer 64 mL/min >60 [facility] Comment on above: Non- GFR Calc Troponin I High Sensitivity 18 pg/mL 3.0-54.0 [facility] Comment on above: Please Note: New Gina t Units and Gender Specific Reference Ranges. For more information see Policy Stat Procedure [place] High Sensitivity Troponin (TNIH) and attachments. Valproic Acid (Depakene) Level 42 ug/mL 50-100 [facility] Platelets bldOrdered By: Dr. Garcia on 03-14-2022 Platelets (Bld) [#/Vol] 233 10*3/uL 150-450 [facility] Protein Test strip Ql (U)Ord ered By: Dr. Garcia on 03-14-2022 Protein Ql (U) 15 mg/dl Negative [facility] Serum or plasma albumin loretta urement (mass/volume)Ordered By: Dr. Garcia on 03-14-2022 Albumin [Mass/Vol] 3.3 g/dL 3.2-5.0 [facility] Serum or plasma albumin/glob ulin mass ratioOrdered By: Dr. Garcia on 03-14-2022 Albumin/Globulin [Mass ratio] 0.8 {ratio} 0.9-2.4 [facility] Serum or plasma calcium loretta urement (mass/volume)Ordered By: Dr. Garcia on 03-14-2022 Calcium [Mass/Vol] 9.2 mg/dL 8.5-10.1 [facility] Serum or plasma creatinine m easurement (mass/volume)Ordered By: Dr. Garcia on 03-14-2022 Creatinine [Mass/Vol] 0.93 mg/dL 0.55-1.02 [facility] Comment on above: The validity of the calculated GFR & GFRAA in patients over 70 years has not been determined. Clinical correlation is essential. Serum or plasma urea nitroge n measurement (mass/volume)Ordered By: Dr. Garcia on 03-14-2022 Urea nitrogen [Mass/Vol] 21 mg/dL 7-18 [facility] Squamous epithelial cells de tection in urine sediment by light microscopyOrdered By: Dr. Garcia on 03-14-2022 Epithelial cells.squamous LM Ql (Urine sed) 0-5 SEEN /hpf 5-10 [facility] Thin prep Papanicolaou smear with manual screeningOrdered By: Dr. Garcia on 03-14-2022 Thin prep Papanicolaou smear with manual screening 21 U/L 15-37 [facility] Thin prep Papanicolaou smear with manual screening 8 5-15 [facility] Urine blood detectionOrdered By: Dr. Garcia on 03-14-2022 RBC Ql (U) Negative Negative [facility] RBC Ql (U) 0 SEEN /hpf 0-5 [facility] Urine clarityOrdered By: Dr. Garcia on 03-14-2022 Clarity (U) Clear Clear [facility] Urine color determinationOrd ered By: Dr. Garcia on 03-14-2022 Color (U) Yellow Yellow [facility] Urine glucose detectionOrder ed By: Dr. Garcia on 03-14-2022 Glucose Ql (U) Normal mg/dl Normal [facility] Urine leukocyte esterase det ection by dipstickOrdered By: Dr. Garcia on 03-14-2022 Leukocyte esterase Test strip Ql (U) Negative Negative [facility] Urine pHOrdered By: Dr. Jonathan ryan on 03-14-2022 pH (U) 7.0 [pH] 5.0 - 8.0 [facility] Urine sediment bacteria coun t by microscopy (number/high power field)Ordered By: Dr. Garcia on 03-14-2022 Bacteria LM.HPF (Urine sed) [#/Area] 0 /[HPF] None Seen [facility] Urine specific gravity measu rementOrdered By: Dr. Garcia on 03-14-2022 Specific gravity (U) [Rel density] 1.015 1.002-1.030 [facility] Urobilinogen Auto test strip Ql (U)Ordered By: Dr. Garcia on 03-14-2022 Urobilinogen Ql (U) Normal mg/dl Normal [facility] Absolute lymphocyte counton 01-10-2022 Lymphocytes Auto (Unsp spec) [#/Vol] 1.45 10*3/uL 0.83-4.51 [facility] Work Phone: Basophil percentageon 2021 Basophils/100 WBC (Bld) 0.3 % 0-1 [facility] Work Phone: Bilirubin [Mass/Vol] 0.50 mg/dL 0.20-1.00 [facility] Work Phone: Comment on above: For patients on eltr ombopag therapy, use of Dimension [place] TBIL is not recommended. Chloride [Moles/Vol] 106 mmol/L 98-107 [facility] Work Phone: Cholesterol [Mass/Vol] 195 mg/dL <200 [facility] Work Phone: Comment on above: <200 mg/dL Desirable 200-240 mg/dL Borderline >240 mg/dL High Risk Eosinophils/100 WBC (Bld) 2.9 % 0-5 [facility] Work Phone: Glucose [Mass/Vol] 124 mg/dL 74-106 [facility] Work Phone: Comment on above: Fasting Glucose resu lt from 100 to 125 mg/dL suggests IMPAIRED HOMEOSTASIS per A.D.A. criteria. Neutrophils (Bld) [#/Vol] 2.0 10*3/uL 2.0-7.7 [facility] Work Phone: Neutrophils/100 WBC (Bld) 52.1 % 47-70 [facility] Work Phone: Potassium [Moles/Vol] 4.1 mmol/L 3.5-5.1 [facility] Work Phone: Protein [Mass/Vol] 7.8 g/dL 6.4-8.2 [facility] Work Phone: Sodium [Moles/Vol] 141 mmol/L 136-145 [facility] Work Phone: Triglyceride [Mass/Vol] 92 mg/dL <199 [facility] Work Phone: Comment on above: The drugs N-Acetylcy steine and Metamizole may falsely depress this assay.Serum Triglycerides Reference Interval Normal <150 mg/dL Borderline high 150 - 199 mg/dL High 200 - 499 mg/dL Very High > or = 500 mg/dL WBC (Bld) [#/Vol] 3.8 10*3/uL 4.4-11.0 [facility] Work Phone: Blood erythrocytes count (nu mber/volume)on 01-10-2022 RBC (Bld) [#/Vol] 3.90 10*6/uL 4.2-5.4 [facility] Work Phone: Blood hemoglobin measurement (mass/volume)on 01-10-2022 Hemoglobin (Bld) [Mass/Vol] 12.5 g/dL 12.0-15.0 [facility] Work Phone: Blood lymphocytes/100 leukoc yteson 01-10-2022 Lymphocytes/100 WBC (Bld) 37.9 % 19-41 [facility] Work Phone: Blood monocytes/100 leukocyt eson 01-10-2022 Monocytes/100 WBC (Bld) 6.5 % 0-10 [facility] Work Phone: Blood platelet mean volumeon 01-10-2022 Platelet mean volume (Bld) [Entitic vol] 11.1 fL 6.2-12.0 [facility] Work Phone: Determination of erythrocyte mean corpuscular volume (MCV)on 01-10-2022 MCV (RBC) [Entitic vol] 96.4 fL 81-99 [facility] Work Phone: Hematocrit Auto (Bld) [Volum e fraction]on 01-10-2022 Hematocrit (Bld) [Volume fraction] 37.6 % 37-47 [facility] Work Phone: Laboratory - Chemistry and C hemistry - challengeon 01-10-2022 ALP [Catalytic activity/Vol] 87 U/L 45-117 [facility] Work Phone: ALT [Catalytic activity/Vol] 28 U/L 13-56 [facility] Work Phone: CO2 [Moles/Vol] 29.0 mmol/L 21.0-32.0 [facility] Work Phone: Globulin (S) [Mass/Vol] 4.2 g/dL 2.2-4.2 [facility] Work Phone: Urea nitrogen/Creatinine [Mass ratio] 22.6 mg/mg 10-20 [facility] Work Phone: Laboratory - Hematology and Cell countson 01-10-2022 Erythrocyte distribution width (RBC) [Entitic vol] 48.9 fL 35.1-43.9 [facility] Work Phone: Erythrocyte distribution width (RBC) [Ratio] 13.7 % 11.6-14.6 [facility] Work Phone: Immature granulocytes/100 WBC (Bld) 0.300 % 0.0-0.9 [facility] Work Phone: Comment on above: IG% - Immature Granu locytes (promyelocytes, myelocytes and metamyelocytes) > 1% indicates that a LEFT SHIFT is Present. MCH (RBC) [Entitic mass] 32.1 pg 27.0-32.0 [facility] Work Phone: Nucleated RBC/100 WBC (Bld) [Ratio] 0 % 0-5 [facility] Work Phone: MCHC Auto (RBC) [Mass/Vol]on 01-10-2022 MCHC (RBC) [Mass/Vol] 33.2 g/dL 32-36 [facility] Work Phone: No Panel Informationon 01-10 Estimated GFR (MDRD) Amer 77 mL/min >60 [facility] Work Phone: Comment on above: GFR Calc Estimated GFR (MDRD) Non-Af Amer 64 mL/min >60 [facility] Work Phone: Comment on above: Non- GFR Calc Urine Microalbumin/Creatinine Ratio 7.3 mg/g CRE <30 [facility] Work Phone: Platelets bldon 01-10-2022 Platelets (Bld) [#/Vol] 210 10*3/uL 150-450 [facility] Work Phone: Serum or plasma albumin loretta urement (mass/volume)on 01-10-2022 Albumin [Mass/Vol] 3.6 g/dL 3.2-5.0 [facility] Work Phone: Serum or plasma albumin/glob ulin mass ratioon 01-10-2022 Albumin/Globulin [Mass ratio] 0.9 {ratio} 0.9-2.4 [facility] Work Phone: Serum or plasma calcium loretta urement (mass/volume)on 01-10-2022 Calcium [Mass/Vol] 9.6 mg/dL 8.5-10.1 [facility] Work Phone: Serum or plasma cholesterol in HDL measurement (mass/volume)on 01-10-2022 Cholesterol in HDL [Mass/Vol] 53 mg/dL >40 [facility] Work Phone: Comment on above: The drugs N-Acetylcy steine and Metamizole may falsely depress this assay. Reference Range HDL <40 mg/dL Low HDL Cholesterol HDL >or= 60 mg/dL High HDL Cholesterol Serum or plasma cholesterol in VLDL measurement (mass/volume)on 01-10-2022 Cholesterol in VLDL [Mass/Vol] 18 mg/dL 5-40 [facility] Work Phone: Serum or plasma creatinine m easurement (mass/volume)on 01-10-2022 Creatinine [Mass/Vol] 0.93 mg/dL 0.55-1.02 [facility] Work Phone: Comment on above: The validity of the calculated GFR & GFRAA in patients over 70 years has not been determined. Clinical correlation is essential. Serum or plasma low density lipoprotein (LDL) cholesterol measurement (mass/volume)on 01-10-2022 Cholesterol in LDL [Mass/Vol] 124 mg/dL 0-130 [facility] Work Phone: Serum or plasma urea nitroge n measurement (mass/volume)on 01-10-2022 Urea nitrogen [Mass/Vol] 21 mg/dL 7-18 [facility] Work Phone: Thin prep Papanicolaou smear with manual screeningon 01-10-2022 Thin prep Papanicolaou smear with manual screening 17 U/L 15-37 [facility] Work Phone: Thin prep Papanicolaou smear with manual screening 6 5-15 [facility] Work Phone: Thin prep Papanicolaou smear with manual screening 22.4 mg/L NO RANGE EST. [facility] Work Phone: Urine creatinine measurement (mass/volume)on 01-10-2022 Creatinine (U) [Mass/Vol] 308.00 mg/dL NO RANGE EST. [facility] Work Phone: Whole blood hemoglobin A1c/t otal hemoglobin ratio (mass fraction)on 01-10-2022 HbA1c (Bld) [Mass fraction] 7.3 % 3.8-5.6 [facility] Work Phone: Comment on above: Normal < 5.7 % Predi abetic 5.7 - 6.4 % Diabetic >or= 6.5 % Please note range changes. Absolute lymphocyte counton 01-03-2022 Lymphocytes Auto (Unsp spec) [#/Vol] 2.28 10*3/uL 0.83-4.51 [facility] Work Phone: Basophil percentageon 2021 Basophils/100 WBC (Bld) 0.6 % 0-1 [facility] Work Phone: Bilirubin [Mass/Vol] 0.20 mg/dL 0.20-1.00 [facility] Work Phone: Comment on above: For patients on eltr ombopag therapy, use of Dimension [place] TBIL is not recommended. Chloride [Moles/Vol] 110 mmol/L 98-107 [facility] Work Phone: [phone] Eosinophils/100 WBC (Bld) 3.1 % 0-5 [facility] Work Phone: [phone] Glucose [Mass/Vol] 154 mg/dL 74-106 [facility] Work Phone: Comment on above: Fasting Glucose resu lt greater than or equal to 126 mg/dL suggests DIABETES MELLITUS per A.D.A. criteria. Neutrophils (Bld) [#/Vol] 2.2 10*3/uL 2.0-7.7 [facility] Work Phone: Neutrophils/100 WBC (Bld) 44.8 % 47-70 [facility] Work Phone: Potassium [Moles/Vol] 3.8 mmol/L 3.5-5.1 [facility] Work [facility]: Protein [Mass/Vol] 6.0 g/dL 6.4-8.2 [facility] Work Phone: Sodium [Moles/Vol] 141 mmol/L 136-145 [facility] Work Phone: WBC (Bld) [#/Vol] 4.9 10*3/uL 4.4-11.0 [facility] Work Phone: Blood erythrocytes count (nu mber/volume)on 01-03-2022 RBC (Bld) [#/Vol] 3.20 10*6/uL 4.2-5.4 [facility] Work Phone: Blood hemoglobin measurement (mass/volume)on 01-03-2022 Hemoglobin (Bld) [Mass/Vol] 10.1 g/dL 12.0-15.0 [facility] Work Phone: Blood lymphocytes/100 leukoc yteson 01-03-2022 Lymphocytes/100 WBC (Bld) 46.4 % 19-41 [facility] Work Phone: Blood monocytes/100 leukocyt eson 01-03-2022 Monocytes/100 WBC (Bld) 4.9 % 0-10 [facility] Work Phone: Blood platelet mean volumeon 01-03-2022 Platelet mean volume (Bld) [Entitic vol] 10.8 fL 6.2-12.0 [facility] Work Phone: Determination of erythrocyte mean corpuscular volume (MCV)on 01-03-2022 MCV (RBC) [Entitic vol] 97.2 fL 81-99 [facility] Work Phone: Glucose Glucometer (BldC) [M ass/Vol]on 01-03-2022 Glucose [Mass/Vol] 107 mg/dL 74-106 [facility] Work Phone: Comment on above: MANAGEMENT OF PATIEN T CARE PER NURSING PROTOCOL Hematocrit Auto (Bld) [Volum e fraction]on 01-03-2022 Hematocrit (Bld) [Volume fraction] 31.1 % 37-47 [facility] Work Phone: Laboratory - Chemistry and C hemistry - challengeon 01-03-2022 ALP [Catalytic activity/Vol] 83 U/L 45-117 [facility] Work Phone: ALT [Catalytic activity/Vol] 23 U/L 13-56 [facility] Work Phone: CO2 [Moles/Vol] 26.0 mmol/L 21.0-32.0 [facility] Work Phone: Globulin (S) [Mass/Vol] 3.4 g/dL 2.2-4.2 [facility] Work Phone: Urea nitrogen/Creatinine [Mass ratio] 22.9 mg/mg 10-20 [facility] Work Phone: Laboratory - Hematology and Cell countson 01-03-2022 Erythrocyte distribution width (RBC) [Entitic vol] 48.3 fL 35.1-43.9 [facility] Work Phone: Erythrocyte distribution width (RBC) [Ratio] 13.4 % 11.6-14.6 [facility] Work Phone: Immature granulocytes/100 WBC (Bld) 0.200 % 0.0-0.9 [facility] Work Phone: Comment on above: IG% - Immature Granu locytes (promyelocytes, myelocytes and metamyelocytes) > 1% indicates that a LEFT SHIFT is Present. MCH (RBC) [Entitic mass] 31.6 pg 27.0-32.0 [facility] Work Phone: Nucleated RBC/100 WBC (Bld) [Ratio] 0 % 0-5 [facility] Work Phone: MCHC Auto (RBC) [Mass/Vol]on 01-03-2022 MCHC (RBC) [Mass/Vol] 32.5 g/dL 32-36 [facility] Work Phone: No Panel Informationon 01-03 Estimated Creatinine Clearance Calc 50.59 ml/min [facility] Work Phone: Estimated GFR (MDRD) Amer 88 mL/min >60 [facility] Work Phone: Comment on above: GFR Calc Estimated GFR (MDRD) Non-Af Amer 73 mL/min >60 [facility] Work Phone: Comment on above: Non- GFR Calc Platelets bldon 01-03-2022 Platelets (Bld) [#/Vol] 181 10*3/uL 150-450 [facility] Work Phone: Serum or plasma albumin loretta urement (mass/volume)on 01-03-2022 Albumin [Mass/Vol] 2.6 g/dL 3.2-5.0 [facility] Work Phone: Serum or plasma albumin/glob ulin mass ratioon 01-03-2022 Albumin/Globulin [Mass ratio] 0.8 {ratio} 0.9-2.4 [facility] Work Phone: Serum or plasma calcium loretta urement (mass/volume)on 01-03-2022 Calcium [Mass/Vol] 8.0 mg/dL 8.5-10.1 [facility] Work Phone: Serum or plasma creatinine m easurement (mass/volume)on 01-03-2022 Creatinine [Mass/Vol] 0.83 mg/dL 0.55-1.02 [facility] Work Phone: Comment on above: The validity of the calculated GFR & GFRAA in patients over 70 years has not been determined. Clinical correlation is essential. Serum or plasma urea nitroge n measurement (mass/volume)on 01-03-2022 Urea nitrogen [Mass/Vol] 19 mg/dL 7-18 [facility] Work Phone: Thin prep Papanicolaou smear with manual screeningon 01-03-2022 Thin prep Papanicolaou smear with manual screening 15 U/L 15-37 [facility] Work Phone: Thin prep Papanicolaou smear with manual screening 5 5-15 [facility] Work Phone: No Panel Informationon 01-02 Troponin I High Sensitivity 5 pg/mL 3.0-54.0 [facility] Work Phone: Comment on above: Please Note: New Gina t Units and Gender Specific Reference Ranges. For more information see Policy Stat Procedure [place] High Sensitivity Troponin (TNIH) and attachments. D-Dimer Quantitative (PE/DVT) 0.57 FEU/ug/m 0.27-0.49 [facility] Work Phone: Comment on above: D-Dimer ELEVATED (>0 .49): Additional studies and clinicalassessments are indicated to conclude diagnosis of:Deep Vein Thrombosis (DVT) or Pulmonary Embolism (PE)CRITICAL VALUE VERIFIED. CALLED TO NIDIA COLLINS (ER)01/02/22 0839 Mynor James.RESULTS READ BACK BY SAME. Basophil percentageon 2021 Basophil percentage 0-5 SEEN /hpf 0-5 [facility] Work Phone: Bilirubin Test strip Ql (U)o n 12-17-2021 Bilirubin Ql (U) Negative Negative [facility] Work Phone: Ketones Test strip Ql (U)on 12-17-2021 Ketones Ql (U) Negative Negative [facility] Work Phone: Mucus LM Ql (Urine sed)on Mucus Ql (Urine sed) RARE /hpf [facility] Work Phone: Nitrite Test strip Ql (U)on 12-17-2021 Nitrite Ql (U) Negative Negative [facility] Work Phone: Protein Test strip Ql (U)on 12-17-2021 Protein Ql (U) Negative Negative [facility] Work Phone: Squamous epithelial cells de tection in urine sediment by light microscopyon 12-17-2021 Epithelial cells.squamous LM Ql (Urine sed) 0-5 SEEN /hpf 5-10 [facility] Work Phone: Urine blood detectionon 12-02 RBC Ql (U) Negative Negative [facility] Work Phone: RBC Ql (U) 0 SEEN /hpf 0-5 [facility] Work Phone: Urine clarityon 12-17-2021 Clarity (U) Clear Clear [facility] Work Phone: Urine color determinationon 12-17-2021 Color (U) Yellow Yellow [facility] Work Phone: Urine glucose detectionon Glucose Ql (U) Normal mg/dl Normal [facility] Work Phone: Urine leukocyte esterase det ection by dipstickon 12-17-2021 Leukocyte esterase Test strip Ql (U) 100 /ul Negative [facility] Work Phone: Urine pHon 12-17-2021 pH (U) 8.0 [pH] 5.0 - 8.0 [facility] Work Phone: Urine sediment bacteria coun t by microscopy (number/high power field)on 12-17-2021 Bacteria LM.HPF (Urine sed) [#/Area] 1 /[HPF] None Seen [facility] Work Phone: Urine specific gravity measu rementon 12-17-2021 Specific gravity (U) [Rel density] 1.015 1.002-1.030 [facility] Work Phone: Urobilinogen Auto test strip Ql (U)on 12-17-2021 Urobilinogen Ql (U) 1 mg/dl Normal [facility] Work Phone: Laboratory - Hematology and Cell countson 11-06-2021 HbA1c (Bld) [Mass fraction] 7.2 % 4.2-6.3 [facility] Work Phone: Absolute lymphocyte counton 10-25-2021 Lymphocytes Auto (Unsp spec) [#/Vol] 2.55 10*3/uL 0.83-4.51 [facility] Work Phone: Basophil percentageon 2021 Basophils/100 WBC (Bld) 0.5 % 0-1 [facility] Work Phone: Bilirubin [Mass/Vol] 0.20 mg/dL 0.20-1.00 [facility] Work Phone: Comment on above: For patients on eltr ombopag therapy, use of Dimension [place] TBIL is not recommended. Chloride [Moles/Vol] 105 mmol/L 98-107 [facility] Work Phone: Eosinophils/100 WBC (Bld) 2.1 % 0-5 [facility] Work Phone: Glucose [Mass/Vol] 188 mg/dL 74-106 [facility] Work Phone: Comment on above: Fasting Glucose resu lt greater than or equal to 126 mg/dL suggests DIABETES MELLITUS per A.D.A. criteria. Neutrophils (Bld) [#/Vol] 3.5 10*3/uL 2.0-7.7 [facility] Work Phone: Neutrophils/100 WBC (Bld) 52.9 % 47-70 [facility] Work Phone: Potassium [Moles/Vol] 4.0 mmol/L 3.5-5.1 [facility] Work Phone: Protein [Mass/Vol] 7.6 g/dL 6.4-8.2 [facility] Work Phone: Sodium [Moles/Vol] 138 mmol/L 136-145 [facility] Work Phone: WBC (Bld) [#/Vol] 6.6 10*3/uL 4.4-11.0 [facility] Work Phone: Blood erythrocytes count (nu mber/volume)on 10-25-2021 RBC (Bld) [#/Vol] 4.16 10*6/uL 4.2-5.4 [facility] Work Phone: [phone] Blood hemoglobin measurement (mass/volume)on 10-25-2021 Hemoglobin (Bld) [Mass/Vol] 13.0 g/dL 12.0-15.0 [facility] Work Phone: Blood lymphocytes/100 leukoc yteson 10-25-2021 Lymphocytes/100 WBC (Bld) 38.4 % 19-41 [facility] Work Phone: Blood monocytes/100 leukocyt eson 10-25-2021 Monocytes/100 WBC (Bld) 5.9 % 0-10 [facility] Work Phone: Blood platelet mean volumeon 10-25-2021 Platelet mean volume (Bld) [Entitic vol] 10.6 fL 6.2-12.0 [facility] Work Phone: Determination of erythrocyte mean corpuscular volume (MCV)on 10-25-2021 MCV (RBC) [Entitic vol] 95.4 fL 81-99 [facility] Work Phone: Hematocrit Auto (Bld) [Volum e fraction]on 10-25-2021 Hematocrit (Bld) [Volume fraction] 39.7 % 37-47 [facility] Work Phone: Laboratory - Chemistry and C hemistry - challengeon 10-25-2021 ALP [Catalytic activity/Vol] 92 U/L 45-117 [facility] Work Phone: ALT [Catalytic activity/Vol] 33 U/L 13-56 [facility] Work Phone: CO2 [Moles/Vol] 27.0 mmol/L 21.0-32.0 [facility] Work Phone: Globulin (S) [Mass/Vol] 4.1 g/dL 2.2-4.2 [facility] Work Phone: Lipase [Catalytic activity/Vol] 89 U/L 73-393 [facility] Work Phone: Urea nitrogen/Creatinine [Mass ratio] 20.7 mg/mg 10-20 [facility] Work Phone: Laboratory - Hematology and Cell countson 10-25-2021 Erythrocyte distribution width (RBC) [Entitic vol] 46.5 fL 35.1-43.9 [facility] Work Phone: Erythrocyte distribution width (RBC) [Ratio] 13.1 % 11.6-14.6 [facility] Work Phone: Immature granulocytes/100 WBC (Bld) 0.200 % 0.0-0.9 [facility] Work Phone: [phone] Comment on above: IG% - Immature Granu locytes (promyelocytes, myelocytes and metamyelocytes) > 1% indicates that a LEFT SHIFT is Present. MCH (RBC) [Entitic mass] 31.3 pg 27.0-32.0 [facility] Work Phone: Nucleated RBC/100 WBC (Bld) [Ratio] 0 % 0-5 [facility] Work Phone: MCHC Auto (RBC) [Mass/Vol]on 10-25-2021 MCHC (RBC) [Mass/Vol] 32.7 g/dL 32-36 [facility] Work Phone: No Panel Informationon 10-25 Estimated Creatinine Clearance Calc 46.29 ml/min [facility] Work Phone: Estimated GFR (MDRD) Amer 78 mL/min >60 [facility] Work Phone: Comment on above: GFR Calc Estimated GFR (MDRD) Non-Af Amer 64 mL/min >60 [facility] Work Phone: Comment on above: Non- GFR Calc Troponin I High Sensitivity < 3 pg/mL 3.0-54.0 [facility] Work Phone: Comment on above: Please Note: New Gina t Units and Gender Specific Reference Ranges. For more information see Policy Stat Procedure [place] High Sensitivity Troponin (TNIH) and attachments. Platelets bldon 10-25-2021 Platelets (Bld) [#/Vol] 223 10*3/uL 150-450 [facility] Work Phone: Serum or plasma albumin loretta urement (mass/volume)on 10-25-2021 Albumin [Mass/Vol] 3.5 g/dL 3.2-5.0 [facility] Work Phone: Serum or plasma albumin/glob ulin mass ratioon 10-25-2021 Albumin/Globulin [Mass ratio] 0.9 {ratio} 0.9-2.4 [facility] Work Phone: Serum or plasma calcium loretta urement (mass/volume)on 10-25-2021 Calcium [Mass/Vol] 9.1 mg/dL 8.5-10.1 [facility] Work Phone: Serum or plasma creatinine m easurement (mass/volume)on 10-25-2021 Creatinine [Mass/Vol] 0.92 mg/dL 0.55-1.02 [facility] Work Phone: Comment on above: The validity of the calculated GFR & GFRAA in patients over 70 years has not been determined. Clinical correlation is essential. Serum or plasma urea nitroge n measurement (mass/volume)on 10-25-2021 Urea nitrogen [Mass/Vol] 19 mg/dL 7-18 [facility] Work Phone: Thin prep Papanicolaou smear with manual screeningon 10-25-2021 Thin prep Papanicolaou smear with manual screening 22 U/L 15-37 [facility] Work Phone: Thin prep Papanicolaou smear with manual screening 6 5-15 [facility] Work Phone: PROGRESSon 06-03-2018 Protein mass conc HNO ID: [id number] Author: Tila (Pt) Jenelle Service: (none) Author Type: Physical Therapist Type: Progress Notes Filed: 06/03/2018 12:16 PM Note Text: 06/03/2018 [facility] PHYSICAL THERAPY DISCONTINUANCE OF CARE Plan of Care Period: Start of Care Date: 01/05/18 Last Visit Date: 02/25/18 Therapy Program: The following is a summary of the interventions provided for this episode of care; Therapeutic exercise, Neuromuscular re-education, Manual therapy, Patient/Family/Caregiver Education and Modalities: Ultrasound Assessment: The following is the goal status: Goals updated on 02/04/2018. [place] in home exercise program.--MET for current HEP [...] or scheduled additional follow-up appointments. NAVNEET Posada [facility] CNTHERAPYon 02-25-2018 CNTHERAPY OT/PT/Speech Visit (PTWS) -------- LACY ALVARADO ([id number]) 1950 F Date Time Provider Department 02/25/18 7:00 AM TILA ALMANZAR (PT) PTWS Date Time Provider Department Center 02/25/2018 7:00 AM [id number], DIANA (PT)PTWS [facility] Reason for Visit: Physical Therapy [503] [...] CAPSULE,MANDIE* Take 1 capsule by mouth twice* [id number] NIRU * Use 3 Drops in the [...] throughout treatment. Billing: [facility]: Therapeutic Exercise (28700): 1:1 time: 36 minutes (2 units: 23-37 mins) Modalities Ultrasound (21460) 1:1 time: 8 minutes1 unit: 8-22 mins Total time: 44 minutes Tila Almanzar, PT Tila Almanzar, PT 06/03/2018 12:16 PM Signed 06/03/2018 [facility]ORTS [facility]ERAP[facility] PHYSICAL THERAPY DISCONTINUANCE OF CARE Plan of Care Period: Start of Care Date: 01/05/18 Last Visit Date: 02/25/18 Therapy Program: The following is a summary of the interventions provided for this episode of care; Therapeutic exercise, Neuromuscular re-education, Manual therapy, Patient/Family/Caregiver Education and Modalities: Ultrasound Assessment: The following is the goal status: Goals updated on 02/04/2018. [place] in home exercise program.--MET for current HEP [...] follow-up appointments. Tila Almanzar PT -------- Normal [facility] PROGRESSon 02-25-2018 Protein mass conc HNO ID: [id number] Author: Tila (Pt) Jenelle Service: (none) Author [...] needs. Patient response monitored throughout treatment. Billing: [facility]: Therapeutic Exercise (46239): 1:1 time: 36 minutes (2 units: 23-37 mins) Modalities Ultrasound (90758) 1:1 time: 8 minutes1 unit: 8-22 mins Total time: 44 minutes Tila Almanzar PT Normal [facility] CNOVon 02-22-2018 CNOV Office Visit (PODIWS ) -------- LACY ALVARADO ([id number]) 1950 F Date Time Provider Department 02/22/18 [...] comment (PT,) [facility] with 10/10 pain that [...] (H) 4.3 - 5.6 % Final Comment: [place] [employer] guidelines indicate that patients with [...] 81 MG TAB Take one(1) tablet daily. hzxrrmgg-ahwbhyfjr-qimjs cortisone (CORTISPORIN) otic solution Use 3 Drops [...] Mynor Flores DPM Referring Provider: MYNOR FLORES [[id number]] Allergies As of Date: 02/22/2018 Noted Allergy [...] [M76.61] Order(s):XR FOOT GENERAL 3V AP/LAT/OBL RT [[id number]] Order #: [id number] FUTURE MRI ANKLE WO IVCON RT [[id number]] Order #: [id number] FUTURE Prescriptions as of 02/22/2018 Sig: VERAPAMIL [...] 81 MG TABLET Take one(1) tablet daily. [id number] NIRU * Use 3 Drops in the [...] by MYNOR FLORES DPM on 02/22/18 Normal [facility] 02-22-2018 Protein mass conc HNO ID: [id number] Author: John Paul Godinez (Rt) Service: (none) Author Type: After School Driver Type: Progress Notes Filed: 02/22/2018 10:36 AM [...] Gretchen February 22, 2018 8:59 AM Normal [facility] Protein mass conc HNO ID: [id number] Author: Mynor Flores Service: (none) Author Type: [...] (H) 4.3 - 5.6 % Final Comment: [place] [employer] guidelines indicate that patients with [...] 81 MG TAB Take one(1) tablet daily. cyqyjiyp-pwtqjiijp-bsaib cortisone (CORTISPORIN) otic solution Use 3 Drops [...] low transverse - COLONOSCOP W/ OR W/O [facility] SPEC 01/12/2013 Colonoscopy - EGD W/O [...] interested in surgery. Mynor Flores DPM Normal [facility] Protein mass conc HNO ID: [id number] Author: Carmelita Limon RN Service: (none) Author [...] in the future, possibly next summer. Normal [facility] XR FEMUR 2V AP/LAT RTon 10- [...] DEGENERATIVE CHANGES IN THE HIP AND KNEE. 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 Golf Teacher: RADHA Transcribe Date/Time: Feb 22 2018 3:15P Dictated by : CHRIS FRANCIS MD This examination was interpreted and the report reviewed and electronically signed by: CHRIS FRANCIS MD on Feb 22 2018 3:18PM EST [id number] Normal [facility] CNTHERAPYon 02-18-2018 CNTHERAPY OT/PT/Speech Visit (PTWS) -------- LACY ALVARADO ([id number]) 1950 F Date Time Provider Department 02/18/18 7:00 AM TILA ALMANZAR (PT) PTWS Date Time Provider Department Center 02/18/2018 7:00 AM [id number], DIANA (PT)PTWS [facility] Reason for Visit: Physical Therapy [503] [...] CAPSULE,MANDIE* Take 1 capsule by mouth twice* [id number] NIRU * Use 3 Drops in the [...] needs. Patient response monitored throughout treatment. Billing: [facility]: Therapeutic Exercise (39020): 1:1 time: 35 minutes (2 units: 23-37 mins) Modalities Ultrasound (25727) 1:1 time: 8 minutes1 unit: 8-22 mins Total time: 43 minutes Tila Almanzar PT -------- Normal [facility] PROGRESSon 02-18-2018 Protein mass conc HNO ID: [id number] Author: Tila (Pt) Jenelle Service: (none) Author [...] needs. Patient response monitored throughout treatment. Billing: [facility]: Therapeutic Exercise (29109): 1:1 time: 35 minutes (2 units: 23-37 mins) Modalities Ultrasound (07519) 1:1 time: 8 minutes1 unit: 8-22 mins Total time: 43 minutes NAVNEET Posada [facility] CNTHERAPYon 02-11-2018 CNTHERAPY OT/PT/Speech Visit (PTWS) -------- LACY ALVARADO ([id number]) 1950 F Date Time Provider Department 02/11/18 7:45 AM TILA ALMANZAR (PT) PTWS Date Time Provider Department Center 02/11/2018 7:45 AM [id number], DIANA (PT)PTWS [facility] Reason for Visit: Physical Therapy [503] [...] CAPSULE,MANDIE* Take 1 capsule by mouth twice* [id number] NIRU * Use 3 Drops in the [...] and compliance. Patient education as noted. Billing: [facility]: Therapeutic Exercise (86805): 1:1 time: 38 minutes (3 units: 38-52 mins) Total time: 38 minutes Tila [facility]zar PT -------- [facility] 02-11-2018 Protein mass conc HNO ID: [id number] Author: Tila (Pt) Jenelle Service: (none) Author [...] and compliance. Patient education as noted. Billing: [facility]: Therapeutic Exercise (48611): 1:1 time: 38 minutes (3 units: 38-52 mins) Total time: 38 minutes Tila Almanzar PT Normal [facility] CNTHERAPYon 02-04-2018 CNTHERAPY OT/PT/Speech Visit (PTWS) -------- LACY ALVARADO ([id number]) 1950 F Date Time Provider Department 02/04/18 7:45 AM TILA ALMANZAR (PT) PTWS Date Time Provider Department Center 02/04/2018 7:45 AM [id number], DIANA (PT)PTWS [facility] Reason for Visit: PT Progress Note [...] CAPSULE,MANDIE* Take 1 capsule by mouth twice* [id number] NIRU * Use 3 Drops in the [...] intensity of pain Goals updated on 02/04/2018. [place] in home exercise program.--MET for current HEP [...] be seen for Therapeutic exercise;Neuromuscular re-education;Manual therapy;Therapeutic activities;Self-prison management;Gait Training;Patient/Family/ Caregiver Education;Modalities;Fun ctional training;General Conditioning [...] provided in selection of appropriate interventions. Billing: [facility]: Therapeutic Exercise (20279): 1:1 time: 20 minutes (1 unit: 8-22 mins) Total time: 20 minutes Tila Almanzar PT -------- Normal [facility] PROGRESSon 02-04-2018 Protein mass conc HNO ID: [id number] Author: Tila (Pt) Jenelle Service: (none) Author [...] intensity of pain Goals updated on 02/04/2018. [place] in home exercise program.--MET for current HEP [...] be seen for Therapeutic exercise;Neuromuscular re-education;Manual therapy;Therapeutic activities;Self-prison management;Gait Training;Patient/Family/ Caregiver Education;Modalities;Fun ctional training;General Conditioning [...] provided in selection of appropriate interventions. Billing: [facility]: Therapeutic Exercise (82096): 1:1 time: 20 minutes (1 unit: 8-22 mins) Total time: 20 minutes Tila Almanzar PT Normal [facility] CNTHERAPYon 02-02-2018 CNTHERAPY OT/PT/Speech Visit (PTWS) -------- LACY ALVARADO ([id number]) 1950 F Date Time Provider Department 02/02/18 7:45 AM TILA ALMANZAR (PT) PTWS Date Time Provider Department Center 02/02/2018 7:45 AM [id number], DIANA (PT)PTWS [facility] Reason for Visit: Physical Therapy [503] [...] CAPSULE,MANDIE* Take 1 capsule by mouth twice* SUKBMBUR-PNJFVGKIN-ETUZE NIRU * Use 3 Drops in the [...] Manual Therapy: 1: Prone: IASTM with Hawk Pellet Post Inspector Scanner for 13 minutes to R achillies tendon Skilled Intervention: Manual skills to improve joint mobility, ROM, and decrease pain. Utilized anatomy knowledge of the therapist, and assessment of patient's response to intervention. Billing: [facility]: Therapeutic Exercise (85256): 1:1 time: 22 minutes (1 unit: 8-22 mins) Manual Therapy (40684): 1:1 time: 13 minutes (1 unit: 8-22 mins) Total time: 35 minutes Tila Almanzar PT -------- [facility] PROGRESSon 02-02-2018 Protein mass conc HNO ID: [id number] Author: Tila (Pt) Jenelle Service: (none) Author [...] Manual Therapy: 1: Prone: IASTM with Hawk Pellet Post Inspector Scanner for 13 minutes to R achillies tendon Skilled Intervention: Manual skills to improve joint mobility, ROM, and decrease pain. Utilized anatomy knowledge of the therapist, and assessment of patient's response to intervention. Billing: [facility]: Therapeutic Exercise (97644): 1:1 time: 22 minutes (1 unit: 8-22 mins) Manual Therapy (13292): 1:1 time: 13 minutes (1 unit: 8-22 mins) Total time: 35 minutes Tila Almanzar PT Normal [facility] PROGRESSon 01-31-2018 Protein mass conc HNO ID: [id number] Author: Tila (Navneet) Jenelle Service: (none) Author [...] interventions. Manual Therapy: 1: Prone: IASTM with LeadSift Scanner for 8 minutes to R achillies [...] needs. Patient response monitored throughout treatment. Billing: [facility]: Therapeutic Exercise (26103): 1:1 time: 20 minutes (2 units: 23-37 mins) Manual Therapy (98390): 1:1 time: 12 minutes (1 unit: 8-22 mins) Modalities Ultrasound (21527) 1:1 time: 10 minutes1 unit: 8-22 mins Total time: 42 minutes Tila Almanzar PT Normal [facility] CNTHERAPYon 01-28-2018 CNTHERAPY OT/PT/Speech Visit (PTWS) -------- LACY ALVARADO ([id number]) 1950 F Date Time Provider Department 01/28/18 7:45 AM TILA ALMANZAR (PT) PTWS Date Time Provider Department Center 01/28/2018 7:45 AM [id number], DIANA (PT)PTWS [facility] Reason for Visit: Physical Therapy [503] [...] CAPSULE,MANDIE* Take 1 capsule by mouth twice* LMJOJBEO-SSDCHSJSI-KLLGY NIRU * Use 3 Drops in the [...] interventions. Manual Therapy: 1: Prone: IASTM with Galazar Pellet Post Inspector Scanner for 8 minutes to R achillies [...] needs. Patient response monitored throughout treatment. Billing: [facility]: Therapeutic Exercise (49859): 1:1 time: 20 minutes (2 units: 23-37 mins) Manual Therapy (17353): 1:1 time: 12 minutes (1 unit: 8-22 mins) Modalities Ultrasound (62579) 1:1 time: 10 minutes1 unit: 8-22 mins Total time: 42 minutes Tila Almanzar PT -------- Normal [facility] PROGRESSon 01-27-2018 Protein mass conc HNO ID: [id number] Author: Tila Almanzar Service: (none) Author Type: [...] up she had not problems. Tried Hawk Pellet Post Inspector scanner tool for IASTM and Kinesiotaping. Will assess at next session. The patient will continue to benefit from continued skilled physical therapy for thex ex, manual, and US for pain control of R heel pain. PLAN FOR NEXT VISIT: See how liked Hawk Pellet Post Inspector tools and kinesiotape; BAPS Board for Ankle [...] Manual Therapy: 1: Prone: IASTM with Hawk Pellet Post Inspector Scanner for 6 minutes to R achillies [...] needs. Patient response monitored throughout treatment. Billing: [facility]: Therapeutic Exercise (37582): 1:1 time: 20 minutes (1 unit: 8-22 mins) Manual Therapy (16351): 1:1 time: 15 minutes (1 unit: 8-22 mins) Modalities Ultrasound (27655) 1:1 time: 10 minutes1 unit: 8-22 mins Total time: 45 minutes NAVNEET Posada [facility] CNTHERAPYon 01-26-2018 CNTHERAPY OT/PT/Speech Visit (PTWS) -------- LACY ALVARADO ([id number]) 1950 F Date Time Provider Department 01/26/18 7:00 AM TILA ALMANZAR (PT) BK Date Time Provider Department Center 01/26/2018 7:00 AM [id number], DIANA (PT)PTWS [facility] Reason for Visit: Physical Therapy [503] [...] CAPSULE,MANDIE* Take 1 capsule by mouth twice* JTQSHFRO-LENDFFSPY-HJAXK NIRU * Use 3 Drops in the [...] up she had not problems. Tried Hawk Pellet Post Inspector scanner tool for IASTM and Kinesiotaping. Will assess at next session. The patient will continue to benefit from continued skilled physical therapy for thex ex, manual, and US for pain control of R heel pain. PLAN FOR NEXT VISIT: See how liked Hawk Pellet Post Inspector tools and kinesiotape; BAPS Board for Ankle [...] cuing. Manual Therapy: 1: Prone: IASTM with LeadSift Scanner for 6 minutes to R achillies [...] needs. Patient response monitored throughout treatment. Billing: [facility]: Therapeutic Exercise (06387): 1:1 time: 20 minutes (1 unit: 8-22 mins) Manual Therapy (34359): 1:1 time: 15 minutes (1 unit: 8-22 mins) Modalities Ultrasound (42877) 1:1 time: 10 minutes1 unit: 8-22 mins Total time: 45 minutes Tila Almanzar PT -------- Normal [facility] PROGRESSon 01-24-2018 Protein mass conc HNO ID: [id number] Author: Tila (Pt) Jenelle Service: (none) Author [...] needs. Patient response monitored throughout treatment. Billing: [facility]: Therapeutic Exercise (96575): 1:1 time: 19 minutes (1 unit: 8-22 mins) Manual Therapy (66027): 1:1 time: 8 minutes (1 unit: 8-22 mins) Modalities Ultrasound (21439) 1:1 time: 15 minutes1 unit: 8-22 mins Total time: 42 minutes NAVNEET Posada [facility] CNTHERAPYon 01-21-2018 CNTHERAPY OT/PT/Speech Visit (PTWS) -------- LACY ALVARADO ([id number]) 1950 F Date Time Provider Department 01/21/18 7:45 AM TILA ALMANZAR (PT) PTJOCE Date Time Provider Department Center 01/21/2018 7:45 AM [id number], DIANA (PT)PTWS [facility] Reason for Visit: Physical Therapy [503] [...] CAPSULE,MANDIE* Take 1 capsule by mouth twice* BCCOUPME-PFGIDGRTA-AEFDI NIRU * Use 3 Drops in the [...] needs. Patient response monitored throughout treatment. Billing: [facility]: Therapeutic Exercise (90087): 1:1 time: 19 minutes (1 unit: 8-22 mins) Manual Therapy (31846): 1:1 time: 8 minutes (1 unit: 8-22 mins) Modalities Ultrasound (81094) 1:1 time: 15 minutes1 unit: 8-22 mins Total time: 42 minutes Tila Almanzar PT -------- Normal [facility] CNTHERAPYon 01-12-2018 CNTHERAPY OT/PT/Speech Visit (PTWS) -------- LACY ALVARADO ([id number]) 1950 F Date Time Provider Department 01/12/18 7:00 AM TILA ALMANZAR (PT) PTWS Date Time Provider Department Center 01/12/2018 7:00 AM [id number], DIANA (PT)PTWS [facility] Reason for Visit: Physical Therapy [503] [...] CAPSULE,MANDIE* Take 1 capsule by mouth twice* CANAIYFL-GBCBAZRKK-WLMZH NIRU * Use 3 Drops in the [...] tablet daily. Progress Notes: Tila Almanzar PT 01/12/2018 8:04 AM Signed Episode [...] needs. Patient response monitored throughout treatment. Billing: [facility]: Therapeutic Exercise (92576): 1:1 time: 20 minutes (1 unit: 8-22 mins) Manual Therapy (14250): 1:1 time: 8 minutes (1 unit: 8-22 mins) Modalities Ultrasound (68579) 1:1 time: 15 minutes1 unit: 8-22 mins Total time: 43 minutes Tila Almanzar PT -------- Normal [facility] PROGRESSon 01-12-2018 Protein mass conc HNO ID: [id number] Author: Tila (Pt) Jenelle Service: (none) Author [...] SPORTS THERAPY PHYSICAL THERAPY TREATMENT NOTE ASSESSMENT: aLcy Alvarado demonstrated improvements in R heel pain [...] needs. Patient response monitored throughout treatment. Billing: [facility]: Therapeutic Exercise (63115): 1:1 time: 20 minutes (1 unit: 8-22 mins) Manual Therapy (32381): 1:1 time: 8 minutes (1 unit: 8-22 mins) Modalities Ultrasound (38274) 1:1 time: 15 minutes1 unit: 8-22 mins Total time: 43 minutes NAVNEET Posada [facility] CNOVon 01-11-2018 CNOV Office Visit (PODIWS ) -------- LACY ALVARADO ([id number]) 1950 F Date Time Provider Department 01/11/18 9:10 AM MYNOR FLORES During your visit today, we recorded the following information about you: Mynor Flores DPM 01/11/2018 9:48 AM Signed ? Mynor Flores DPM Department of Podiatry [address] [place] [address] Dept: [phone] Dept 01/11/2018 Follow Up Podiatric Office Visit: [...] Take 1 capsule by mouth twice daily. qrlsznto-holfnwzos-kpltq cortisone (CORTISPORIN) otic solution Use 3 Drops [...] Grandmother ?Cervical - Glaucoma Sister - other (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 Mynor Flores DPM Department of Podiatry [address] [facility] [address] Dept: [phone] Dept 01/11/2018 Follow Up Podiatric Office Visit: [...] Take 1 capsule by mouth twice daily. zyplyvhc-phhobmlfl-sjzqm cortisone (CORTISPORIN) otic solution Use 3 Drops [...] Grandmother ?Cervical - Glaucoma Sister - other (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.] needs. Patient response monitored throughout treatment. Billing: [facility]: Therapeutic Exercise (42759): 1:1 time: 15 minutes (1 unit: 8-22 mins) Modalities Ultrasound (17297) 1:1 time: 15 minutes1 unit: 8-22 mins Total time: 30 minutes Tila Almanzar PT -------- Normal [facility] PROGRESSon 01-07-2018 Protein mass conc HNO ID: [id number] Author: Tila (Pt) Jenelle Service: (none) Author [...] needs. Patient response monitored throughout treatment. Billing: [facility]: Therapeutic Exercise (83109): 1:1 time: 15 minutes (1 unit: 8-22 mins) Modalities Ultrasound (22948) 1:1 time: 15 minutes1 unit: 8-22 mins Total time: 30 minutes NAVNEET Posada [facility] CNTHERAPYon 01-05-2018 CNTHERAPY OT/PT/Speech Visit (PTWS) -------- LACY ALVARADO ([id number]) 1950 F Date Time Provider Department 01/05/18 7:00 AM TILA ALMANZAR (PT) PTWS Date Time Provider Department Center 01/05/2018 7:00 AM [id number], DIANA (PT)PTWS [facility] Reason for Visit: PT Eval [747] [...] CAPSULE,MANDIE* Take 1 capsule by mouth twice* UBPTQOCU-YPSUUYHNK-PMJFA NIRU * Use 3 Drops in the [...] of Care: created on 01/05/18 through 03/16/18 [place] in home exercise program. Patient will decrease [...] Planned Treatment Interventions: Therapeutic exercise;Neuromuscular re-education;Manual therapy;Therapeutic activities;Self-prison management;Gait Training;Patient/Family/ Caregiver Education;Modalities;Fun ctional training;General ConditioningUltrasound [...] facilitated with verbal, visual and tactile cuing. Self-Skilled Nursing Management: 1: Recommended to stop wearing high [...] on clinical presentation, deficits, and needs. Billing: [facility]: Evaluation - Low Complexity (10321) Therapeutic Exercise (62231): 1:1 time: 15 minutes (1 unit: 8-22 mins) Educ Home Mgmt (63353): 1:1 time: 10 minutes (1 unit: 8-22 mins) Total time: 38 minutes Tila Almanzar PT -------- Normal [facility] PROGRESSon 01-05-2018 Protein mass conc HNO ID: [id number] Author: Tila (Pt) Jenelle Service: (none) Author [...] of Care: created on 01/05/18 through 03/16/18 [place] in home exercise program. Patient will decrease [...] Planned Treatment Interventions: Therapeutic exercise;Neuromuscular re-education;Manual therapy;Therapeutic activities;Self-prison management;Gait Training;Patient/Family/ Caregiver Education;Modalities;Fun ctional training;General ConditioningUltrasound [...] facilitated with verbal, visual and tactile cuing. Self-Skilled Nursing Management: 1: Recommended to stop wearing high [...] on clinical presentation, deficits, and needs. Billing: [facility]: Evaluation - Low Complexity (68880) Therapeutic Exercise (64668): 1:1 time: 15 minutes (1 unit: 8-22 mins) Educ Home Mgmt (04827): 1:1 time: 10 minutes (1 unit: 8-22 mins) Total time: 38 minutes Tila Almanzar PT Normal [facility] CNOVon 12-09-2017 CNOV Office Visit (PODIWS ) -------- LACY ALVARADO ([id number]) 1950 F Date Time Provider Department 12/09/17 7:55 AM MYNOR FLORES During your visit today, we recorded the following information about you: Mynor Flores DPM 12/09/2017 8:20 AM Signed ? Mynor Flores DPM Department of Podiatry [address] [place] [address] Dept: [phone] Dept 12/09/2017 Follow Up Podiatric Office Visit: [...] Take 1 capsule by mouth twice daily. 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 Lives with son in [place] REVIEW OF SYSTEMS: CONSTITUTIONAL: No fevers, chills, [...] Mynor Flores DPM Referring Provider: MYNOR FLORES [[id number]] Allergies As of Date: 12/09/2017 Noted Allergy [...] [R09.89] Order(s):PVR [facility] [2896582] Order #: [id number] FUTURE CONSULT TO PHYSICAL THERAPY [9068] Order #: [id number]: 1 Prescriptions as of 12/09/2017 Sig: VERAPAMIL [...] CAPSULE,MANDIE* Take 1 capsule by mouth twice* ENHKGWBH-WSHCDCFOC-ZVAHB NIRU * Use 3 Drops in the [...] by MYNOR FLORES DPM on 12/09/17 Normal [facility] PROGRESSon 12-09-2017 Protein mass conc HNO ID: [id number] Author: Mynor Flores Service: (none) Author Type: Physician Type: Progress Notes Filed: 12/09/2017 8:20 AM Note Text: ? Mynor Flores DPM Department of Podiatry [address] [place] [address] Dept: [phone] Dept 12/09/2017 Follow Up Podiatric Office Visit: [...] Take 1 capsule by mouth twice daily. 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 Golf Teacher: RADHA ? Transcribe Date/Time: Oct 14 2017 [...] 81 MG TAB Take one(1) tablet daily. wpidpkbr-sqjdmwave-wlebo cortisone (CORTISPORIN) otic solution Use 3 Drops [...] anxiety) This note was partially generated using Fortumo voice recognition system, and there may be some incorrect words, spellings, and punctuation that were not noted in checking the note before saving. Jossue Finley MD Referring Provider: JOSSUE FINLEY [[id number]] Allergies As of Date: 10/15/2017 Noted Allergy [...] 81 MG TABLET Take one(1) tablet daily. ZURNRZYX-ZAVGBGSZK-PKNDI NIRU * Use 3 Drops in the [...] BUILDER 10/15/2017 10/15/2017 Class: Suppress Questions Route: [facility] Encounter Status:Closed by JOSSUE FINLEY MD on 10/15/17 Normal [facility] PROGRESSon 10-15-2017 Protein mass conc HNO ID: [id number] Author: Jossue Finley Service: (none) Author Type: Physician Type: Progress Notes Filed: 10/15/2017 4:13 PM Note Text: Jossue Finley MD Department of Orthopaedics Orthopaedics [address] [facility] [address] Dept: [phone] Dept October 15, 2017 CHIEF COMPLAINT: new [...] MD Imaging: IMPRESSION: MILD DEGENERATIVE JOINT DISEASE. Golf Teacher: RADHA ? Transcribe Date/Time: Oct 14 2017 [...] 81 MG TAB Take one(1) tablet daily. lzrdxcwl-jsmeesdfs-szzau cortisone (CORTISPORIN) otic solution Use 3 Drops [...] anxiety) This note was partially generated using Fortumo voice recognition system, and there may be some incorrect words, spellings, and punctuation that were not noted in checking the note before saving. Jossue Finley MD Normal [facility] Protein mass conc HNO ID: [id number] Author: Norma Leone RN Service: (none) Author [...] afterward to clean out scar tissue. Normal [facility] PROGRESSon 10-14-2017 Protein mass conc HNO ID: [id number] Author: John Paul Frias (Tech) Service: (none) Author Type: After School Driver Type: Progress Notes Filed: 10/14/2017 9:03 AM [...] Dozier October 14, 2017 9:02 AM Normal [facility] XR KNEE 4V AP/PA BOTH+LAT/ME R [...] No fracture. IMPRESSION: MILD DEGENERATIVE JOINT DISEASE. Golf Teacher: RADHA Transcribe Date/Time: Oct 14 2017 12:16P Dictated by : CHRIS FRANCIS MD This examination was interpreted and the report reviewed and electronically signed by: CHRIS FRANCIS MD on Oct 14 2017 12:20PM EST [id number] Normal [facility] CNCOon 07-20-2017 CNCO HNO ID: [id number] Author: Mammography Coordinator Service: (none) Author Type: Physician Type: Letter Filed: 07/21/2017 11:31 PM Note Text: July 20, 2017 PID: [id number] Lacy Alvarado [address] [place] [address] Dear Ms. Alvarado, We are pleased to [...] report will be kept on file at [facility] as part of your permanent medical record and are available for your continuing care. Thank you for allowing us to help in meeting your health care needs. Sincerely, Dr. Jaime Interpreting Radiologist [facility] (Normal over 40) Normal [facility] Lipid Panel, [place] 018 Cholesterol in HDL mass conc 49 mg/dL Normal >39 [facility] Comment on above: Result Comment: 40-5 9 mg/dL, Acceptable >59 mg/dL, High: Negative risk factor for coronary heart disease <40 mg/dL, Low: Positive risk factor for coronary heart disease Performed By: #### L IPB #### [facility] [address] [place], [place] [id number] Cholesterol in LDL mass conc 157 mg/dL High <100 [facility] Comment on above: Result Comment: <100 mg/dL, Optimal 100-129 mg/dL, Near optimal/above optimal 130-159 mg/dL, Borderline high 160-189 mg/dL, High >189 mg/dL, Very high Secondary prevention optimal LDL Cholesterol levels are recommended to be < 70 mg/dL Performed By: #### L IPB #### [facility] [address] [employer] [place], [place] [address] Cholesterol mass conc 225 mg/dL High <200 [facility] Comment on above: Result Comment: <200 mg/dL, Desirable 200-239 mg/dL, Borderline high >239 mg/dL, High Performed By: #### L IPB #### [place] [address] [place] [address] Fasting Time 2 hrs Normal [facility] Comment on above: Performed By: #### L IPB #### [place] [address] LDL:HDL Ratio 3.20 High <2.54 [facility] Comment on above: Result Comment: Refe rence: 1. National Cholesterol Education Program ATP III Guideline At-A-Glance Quick Desk Reference: National Heart, Lung, and Blood Independence. National Institutes of Health. 2001: NIH Publication No. 01-3305. 2. An International Atherosclerosis Society position paper: global recommendations for the management of dyslipidemia: executive summary, Atherosclerosis. 2014: 232(2):410-413. Performed By: #### L IPB #### [place] [phone] Non HDL Cholesterol 176 mg/dL High <130 [facility] Comment on above: Result Comment: <130 mg/dL, Optimal 130-159 mg/dL, Near optimal/above optimal 160-189 mg/dL, Borderline high 190-219 mg/dL, High >219 mg/dL, Very high Secondary prevention optimal non HDL Cholesterol levels are recommended to be < 100 mg/dL Performed By: #### L IPB #### [place] [address] [place] [address] TC:HDL Ratio 4.59 Normal <5.10 [facility] Comment on above: Performed By: #### L IPB #### [place] [address] [place] [address] Triglyceride mass conc 97 mg/dL Normal <150 [facility] Comment on above: Result Comment: <150 mg/dL, Normal 150-199 mg/dL, Borderline high 200-499 mg/dL, High >499 mg/dL, Very high Performed By: #### L IPB #### [facility] [address] [place], [place] [address] VLDL Cholesterol 19 mg/dL Normal <30 [facility] Comment on above: Performed By: #### L IPB #### [facility] [address] [place], [place] [address] HAYLEE SCREENINGon 07-20-2017 HAYLEE SCREENING * * *Final Report* * * DATE OF EXAM: Jul 20 2017 8:44AM [facility] - [facility] SCREENING / PROCEDURE REASON: Encounter for screening mammogram for malignant neoplasm of breast * * * * Physician Interpretation * * * * RESULT: #[id number] - [facility] SCREENING BILATERAL DIGITAL SCREENING MAMMOGRAM WITH CAD: [...] made to exams dated: 03/11/2016 mammogram - [facility] and 12/19/2014 mammogram - [facility]. There are scattered fibroglandular elements in both breasts. No significant masses, calcifications, or other findings are seen in either breast. There has been no significant interval change. IMPRESSION: NEGATIVE There is no mammographic evidence of malignancy.A 1 year screening mammogram is recommended. Nilay Jaime M.D. cp/madeline:07/20/2017 09:15:21 Solar Crew Member: Brielle HOPKINS(R)(M), [facility] letter sent: Normal over 42 Mammogram BI-RADS: 1 Negative Golf Teacher: Madeline Transcribe Date/Time: Jul 20 2017 8:46A Dictated by: NILAY JAIME MD This examination was interpreted and the report reviewed and electronically signed by: NILAY JAIME MD on Jul 20 2017 9:15AM EST [id number] Normal [facility] CNOVon 02-09-2017 CNOV Office Visit (AGCMARILINWST) LACY REDDY ([id number]) 1950 FDate Time Provider Bxeakehtey58/9/17 9:00 AM CHRIS YAO During your visit today, we recorded the following information about you: Pulse Blood pressure Weight 88/minute 136/74 78.1 kgChris Yao MD 02/09/2017 5:28 PM SignedPERTINENT CARDIAC HISTORYFour Winds Psychiatric HospitalLINICAL IMPRESSION/PLAN:Lacy Alvarado is doing well. She's [...] with treatment plan.This note was generated using Fortumo voice recognition system, and there may besome [...] LDL has improved to 118.Electronically Signed:[facility]06 [facility]: JANAE Fincheferring Provider: SHAD BRISENO [[id number]]Allergies As of Date: 02/09/2017 Noted Allergy ReactionSEASONAL [...] CAPSULE,MANDIE* Take 1 capsule by mouth twice* [id number] NIRU * Use 3 Drops in the [...] SmartForms filed during this visit:Extended VitalsEncounter Number: [id number] Status:Closed by CHRIS YAO MD on 02/09/17 [facility] PROGRESSon 02-09-2017 PROGRESS HNO ID: [id number]: Chris Pelayo: (none)Author Type: PhysicianType: Progress NotesFiled: [...] with treatment plan.This note was generated using Fortum[employer] voice recognition system, and theremay be some [...] LDL has improved to 118.Electronically Signed:[facility]ao [facility] 2016 9:06 [facility]: Kasie Pink MD [facility] No Panel Information SARS-CoV-2 & FLU Antigen (Rapid) [facility] Work Phone: S. pyogenes Ag IF Ql (Throat ) S. pyogenes Ag IA Ql (Unsp spec) [facility] Work Phone: Vital Signs Date Time Vital Sign Value Performing Clinician Facility 11-07-2024 [id number] Body height 157.[address] Mayda Garcia MD Work Phone: [facility] 11-07-2024 11:15-0400 Body mass index (BMI) [Ratio] 31.4 kg/m2 Dr. Mayda Garcia MD Work Phone: [facility] 11-07-2024 11:15-0400 Body temperature 98.2 [degF] Dr. Mayda Garcia MD Work Phone: [facility] 11-07-2024 11:15-0400 Body weight 78.[address] Mayda Garcia MD Work Phone: [facility] 11-07-2024 11:15-0400 Diastolic blood pressure 77 mm[Hg] Dr. Mayda Garcia MD Work Phone: [facility] 11-07-2024 11:15-0400 Heart rate 94 /min Dr. Mayda Garcia MD Work Phone: [facility] 11-07-2024 11:15-0400 Respiratory rate 17 /min Dr. Mayda Garcia MD Work Phone: [facility] 11-07-2024 11:15-0400 SaO2% (BldA) [Mass fraction] 99 % Dr. Mayda Garcia MD Work Phone: [facility] 11-07-2024 11:15-0400 Systolic blood pressure 119 mm[Hg] Dr. Mayda Garcia MD Work Phone: [facility] 10-03-2024 11:23-0400 Body temperature 98.6 [degF] Dr. Mayda Garcia MD Work Phone: [facility] 10-03-2024 11:23-0400 Body weight 78.[address] Mayda Garcia MD Work Phone: [facility] 10-03-2024 11:23-0400 Diastolic blood pressure 79 mm[Hg] Dr. Mayda Garcia MD Work Phone: [facility] 10-03-2024 11:23-0400 Heart rate 88 /min Dr. Mayda Garcia MD Work Phone: [facility] 10-03-2024 11:23-0400 Respiratory rate 17 /min Dr. Mayda Garcia MD Work Phone: [facility] 10-03-2024 11:23-0400 SaO2% (BldA) [Mass fraction] 98 % Dr. Mayda Garcia MD Work Phone: [facility] 10-03-2024 11:23-0400 Systolic blood pressure 139 mm[Hg] Dr. Mayda Garcia MD Work Phone: [facility] 09-28-2024 08:21-0400 Body mass index (BMI) [Ratio] 30.9 kg/m2 Dr. Mayda Garcia MD Work Phone: [facility] 09-28-2024 08:21-0400 Body temperature 97.4 [degF] Dr. Mayda Garcia MD Work Phone: [facility] 09-28-2024 08:21-0400 Body weight 76.[address] Mayda Garcia MD Work Phone: [facility] 09-28-2024 08:21-0400 Diastolic blood pressure 77 mm[Hg] Dr. Mayda Garcia MD Work Phone: [facility] 09-28-2024 08:21-0400 Heart rate 78 /min Dr. Mayda Garcia MD Work Phone: [facility] 09-28-2024 08:21-0400 Respiratory rate 18 /min Dr. Mayda Garcia MD Work Phone: [facility] 09-28-2024 08:21-0400 SaO2% (BldA) [Mass fraction] 99 % Dr. Mayda Garcia MD Work Phone: [facility] 09-28-2024 08:21-0400 Systolic blood pressure 148 mm[Hg] Dr. Mayda Garcia MD Work Phone: [facility] 09-21-2024 11:14-0400 Body height 157.[address] Mayda Garcia MD Work Phone: [facility] 09-21-2024 11:14-0400 Body mass index (BMI) [Ratio] 31.1 kg/m2 Dr. Mayda Garcia MD Work Phone: [facility] 09-21-2024 11:14-0400 Body temperature 96 [degF] Dr. Mayda Garcia MD Work Phone: [facility] 09-21-2024 11:14-0400 Body weight 77.[address] Mayda Garcia MD Work Phone: [facility] 09-21-2024 11:14-0400 Diastolic blood pressure 76 mm[Hg] Dr. Mayda Garcia MD Work Phone: [facility] 09-21-2024 11:14-0400 Heart rate 100 /min Dr. Mayda Garcia MD Work Phone: [facility] 09-21-2024 11:14-0400 Respiratory rate 16 /min Dr. Mayda Garcia MD Work Phone: [facility] 09-21-2024 11:14-0400 SaO2% (BldA) [Mass fraction] 97 % Dr. Mayda Garcia MD Work Phone: [facility] 09-21-2024 11:14-0400 Systolic blood pressure 126 mm[Hg] Dr. Mayda Garcia MD Work Phone: [facility] 09-19-2024 07:29-0400 Body mass index (BMI) [Ratio] 0.1 kg/m2 Dr. Mayda Garcia MD Work Phone: [facility] 09-19-2024 07:29-0400 Body weight 0.[address] Mayda Garcia MD Work Phone: [facility] 09-19-2024 07:29-0400 Diastolic blood pressure 82 mm[Hg] Dr. Mayda Garcia MD Work Phone: [facility] 09-19-2024 07:29-0400 Heart rate 91 /min Dr. Mayda Garcia MD Work Phone: [facility] 09-19-2024 07:29-0400 Respiratory rate 18 /min Dr. Mayda Garcia MD Work Phone: [facility] 09-19-2024 07:29-0400 SaO2% (BldA) [Mass fraction] 95 % Dr. Mayda Garcia MD Work Phone: [facility] 09-19-2024 07:29-0400 Systolic blood pressure 125 mm[Hg] Dr. Mayda Garcia MD Work Phone: [facility] 09-16-2024 19:40-0400 Body temperature 98.2 [degF] Dr. Mayda Garcia MD Work Phone: [facility] 09-16-2024 19:40-0400 Diastolic blood pressure 83 mm[Hg] Dr. Mayda Garcia MD Work Phone: [facility] 09-16-2024 19:40-0400 Heart rate 78 /min Dr. Mayda Garcia MD Work Phone: [facility] 09-16-2024 19:40-0400 Respiratory rate 24 /min Dr. Mayda Garcia MD Work Phone: [facility] 09-16-2024 19:40-0400 SaO2% (BldA) [Mass fraction] 99 % Dr. Mayda Garcia MD Work Phone: [facility] 09-16-2024 19:40-0400 Systolic blood pressure 137 mm[Hg] Dr. Mayda Garcia MD Work Phone: [facility] 09-16-2024 15:08-0400 Body height 157.[address] Mayda Garcia MD Work Phone: [facility] 08-10-2024 11:01-0400 Body mass index (BMI) [Ratio] 30.3 kg/m2 Dr. Mayda Garcia MD Work Phone: [facility] 08-10-2024 11:01-0400 Body temperature 97 [degF] Dr. Mayda Garcia MD Work Phone: [facility] 08-10-2024 11:01-0400 Body weight 75.[address] Mayda Garcia MD Work Phone: [facility] 08-10-2024 11:01-0400 Diastolic blood pressure 60 mm[Hg] Dr. Mayda Garcia MD Work Phone: [facility] 08-10-2024 11:01-0400 Heart rate 93 /min Dr. Mayda Garcia MD Work Phone: [facility] 08-10-2024 11:01-0400 Respiratory rate 16 /min Dr. Mayda Garcia MD Work Phone: [facility] 08-10-2024 11:01-0400 SaO2% (BldA) [Mass fraction] 97 % Dr. Mayda Garcia MD Work Phone: [facility] 08-10-2024 11:01-0400 Systolic blood pressure 108 mm[Hg] Dr. Mayda Garcia MD Work Phone: [facility] 07-15-2024 16:16-0400 Body temperature 97.6 [degF] Dr. Mayda Garcia MD Work Phone: [facility] 07-15-2024 16:16-0400 Diastolic blood pressure 79 mm[Hg] Dr. Mayda Garcia MD Work Phone: [facility] 07-15-2024 16:16-0400 Heart rate 98 /min Dr. Mayda Garcia MD Work Phone: [facility] 07-15-2024 16:16-0400 Respiratory rate 18 /min Dr. Mayda Garcia MD Work Phone: [facility] 07-15-2024 16:16-0400 SaO2% (BldA) [Mass fraction] 99 % Dr. Mayda Garcia MD Work Phone: [facility] 07-15-2024 16:16-0400 Systolic blood pressure 161 mm[Hg] Dr. Mayda Garcia MD Work Phone: [facility] 07-15-2024 12:12-0400 Body height 157.[address] Mayda Garcia MD Work Phone: [facility] 07-15-2024 12:12-0400 Body mass index (BMI) [Ratio] 30.6 kg/m2 Dr. Mayda Garcia MD Work Phone: [facility] 07-15-2024 12:12-0400 Body weight 75.[address] Mayda Garcia MD Work Phone: [facility] 07-14-2024 20:20-0400 Body temperature 97.9 [degF] Dr. Mayda Garcia MD Work Phone: [facility] 07-14-2024 20:20-0400 Diastolic blood pressure 80 mm[Hg] Dr. Mayda Garcia MD Work Phone: [facility] 07-14-2024 20:20-0400 Heart rate 85 /min Dr. Mayda Garcia MD Work Phone: [facility] 07-14-2024 20:20-0400 Respiratory rate 17 /min Dr. Mayda Garcia MD Work Phone: [facility] 07-14-2024 20:20-0400 SaO2% (BldA) [Mass fraction] 98 % Dr. Mayda Garcia MD Work Phone: [facility] 07-14-2024 20:20-0400 Systolic blood pressure 107 mm[Hg] Dr. Mayda Garcia MD Work Phone: [facility] 07-14-2024 16:18-0400 Body height 157.[address] Mayda Garcia MD Work Phone: [facility] 07-14-2024 16:18-0400 Body mass index (BMI) [Ratio] 30.7 kg/m2 Dr. Mayda Garcia MD Work Phone: [facility] 07-14-2024 16:18-0400 Body weight 76.[address] Mayda Garcia MD Work Phone: [facility] 07-05-2024 10:56-0500 Body mass index (BMI) [Ratio] 30.7 kg/m2 Dr. Mayda Garcia MD Work Phone: [facility] 07-05-2024 10:56-0500 Body temperature 98.6 [degF] Dr. Mayda Garcia MD Work Phone: [facility] 07-05-2024 10:56-0500 Body weight 76.[address] Mayda Garcia MD Work Phone: [facility] 07-05-2024 10:56-0500 Diastolic blood pressure 70 mm[Hg] Dr. Mayda Garcia MD Work Phone: [facility] 07-05-2024 10:56-0500 Heart rate 104 /min Dr. Mayda Garcia MD Work Phone: [facility] 07-05-2024 10:56-0500 Respiratory rate 17 /min Dr. Mayda Garcia MD Work Phone: [facility] 07-05-2024 10:56-0500 SaO2% (BldA) [Mass fraction] 98 % Dr. Mayda Garcia MD Work Phone: [facility] 07-05-2024 10:56-0500 Systolic blood pressure 130 mm[Hg] Dr. Mayda Garcia MD Work Phone: [facility] 05-20-2024 09:36-0500 Body mass index (BMI) [Ratio] 30.9 kg/m2 Dr. Mayda Garcia MD Work Phone: [facility] 05-20-2024 09:36-0500 Body temperature 97.6 [degF] Dr. Mayda Garcia MD Work Phone: [facility] 05-20-2024 09:36-0500 Body weight 76.[address] Mayda Garcia MD Work Phone: [facility] 05-20-2024 09:36-0500 Diastolic blood pressure 78 mm[Hg] Dr. Mayda Garcia MD Work Phone: [facility] 05-20-2024 09:36-0500 Heart rate 98 /min Dr. Mayda Garcia MD Work Phone: [facility] 05-20-2024 09:36-0500 Respiratory rate 16 /min Dr. Mayda Garcia MD Work Phone: [facility] 05-20-2024 09:36-0500 SaO2% (BldA) [Mass fraction] 99 % Dr. Mayda Garcia MD Work Phone: [facility] 05-20-2024 09:36-0500 Systolic blood pressure 142 mm[Hg] Dr. Mayda Garcia MD Work Phone: [facility] 05-16-2024 09:40-0500 Body mass index (BMI) [Ratio] 31.6 kg/m2 Dr. Mayda Garcia MD Work Phone: [facility] 05-16-2024 09:40-0500 Body temperature 98.4 [degF] Dr. Mayda Garcia MD Work Phone: [facility] 05-16-2024 09:40-0500 Body weight 78.[address] Mayda Garcia MD Work Phone: [facility] 05-16-2024 09:40-0500 Diastolic blood pressure 70 mm[Hg] Dr. Mayda Garcia MD Work Phone: [facility] 05-16-2024 09:40-0500 Heart rate 89 /min Dr. Mayda Garcia MD Work Phone: [facility] 05-16-2024 09:40-0500 Respiratory rate 16 /min Dr. Mayda Garcia MD Work Phone: [facility] 05-16-2024 09:40-0500 SaO2% (BldA) [Mass fraction] 99 % Dr. Mayda Garcia MD Work Phone: [facility] 05-16-2024 09:40-0500 Systolic blood pressure 116 mm[Hg] Dr. Mayda Garcia MD Work Phone: [facility] 04-21-2024 10:56-0500 Body mass index (BMI) [Ratio] 30.9 kg/m2 Dr. Mayda Garcia MD Work Phone: [facility] 04-21-2024 10:56-0500 Body temperature 98.4 [degF] Dr. Mayda Garcia MD Work Phone: [facility] 04-21-2024 10:56-0500 Body weight 76.[address] Mayda Garcia MD Work Phone: [facility] 04-21-2024 10:56-0500 Diastolic blood pressure 72 mm[Hg] Dr. Mayda Garcia MD Work Phone: [facility] 04-21-2024 10:56-0500 Heart rate 111 /min Dr. Mayda Garcia MD Work Phone: [facility] 04-21-2024 10:56-0500 Respiratory rate 17 /min Dr. Mayda Garcia MD Work Phone: [facility] 04-21-2024 10:56-0500 SaO2% (BldA) [Mass fraction] 97 % Dr. Mayda Garcia MD Work Phone: [facility] 04-21-2024 10:56-0500 Systolic blood pressure 130 mm[Hg] Dr. Mayda Garcia MD Work Phone: [facility] 04-20-2024 12:38-0500 Body weight 76.[address] Mayda Garcia MD Work Phone: [facility] 04-20-2024 12:38-0500 Heart rate 106 /min Dr. Mayda Garcia MD Work Phone: [facility] 04-20-2024 12:38-0500 SaO2% (BldA) [Mass fraction] 97 % Dr. Mayda Garcia MD Work Phone: [facility] 04-19-2024 10:25-0500 Body mass index (BMI) [Ratio] 30.9 kg/m2 Dr. Mayda Garcia MD Work Phone: [facility] 04-19-2024 10:25-0500 Body weight 76.[address] Mayda Garcia MD Work Phone: [facility] 04-19-2024 10:25-0500 Diastolic blood pressure 62 mm[Hg] Dr. Mayda Garcia MD Work Phone: [facility] 04-19-2024 10:25-0500 Heart rate 97 /min Dr. Mayda Garcia MD Work Phone: [facility] 04-19-2024 10:25-0500 Respiratory rate 16 /min Dr. Mayda Garcia MD Work Phone: [facility] 04-19-2024 10:25-0500 Systolic blood pressure 115 mm[Hg] Dr. Mayda Garcia MD Work Phone: [facility] 08-03-2023 00:11-0400 Body weight 75.[address] Mayda Garcia Work Phone: [facility] 07-29-2023 08:29-0400 Body height 157.[address] Mayda Garcia Work Phone: [facility] 07-29-2023 08:29-0400 Body weight 75.[address] Mayda Garcia Work Phone: [facility] 07-23-2023 10:50-0400 Body height 157.[address] Mayda Garcia Work Phone: [facility] 07-23-2023 10:50-0400 Body mass index (BMI) [Ratio] 30.2 kg/m2 Dr. Mayda Garcia Work Phone: [facility] 07-23-2023 10:50-0400 Body temperature 97.8 [degF] Dr. Mayda Garcia Work Phone: [facility] 07-23-2023 10:50-0400 Body weight 74.[address] Mayda Garcia Work Phone: [facility] 07-23-2023 10:50-0400 Diastolic blood pressure 76 mm[Hg] Dr. Mayda Garcia Work Phone: [facility] 07-23-2023 10:50-0400 Heart rate 96 /min Dr. Mayda Garcia Work Phone: [facility] 07-23-2023 10:50-0400 Respiratory rate 17 /min Dr. Mayda Garcia Work Phone: [facility] 07-23-2023 10:50-0400 SaO2% (BldA) [Mass fraction] 99 % Dr. Mayda Garcia Work Phone: [facility] 07-23-2023 10:50-0400 Systolic blood pressure 118 mm[Hg] Dr. Mayda Garcia Work Phone: [facility] 07-20-2023 13:17-0400 Body mass index (BMI) [Ratio] 30.9 kg/m2 Dr. Mayda Garcia Work Phone: [facility] 07-20-2023 13:17-0400 Body temperature 97.8 [degF] Dr. Mayda Garcia Work Phone: [facility] 07-20-2023 13:17-0400 Body weight 76.[address] Mayda Garcia Work Phone: [facility] 07-20-2023 13:17-0400 Diastolic blood pressure 68 mm[Hg] Dr. Mayda Garcia Work Phone: [facility] 07-20-2023 13:17-0400 Heart rate 88 /min Dr. Mayda Garcia Work Phone: [facility] 07-20-2023 13:17-0400 Respiratory rate 17 /min Dr. Mayda Garcia Work Phone: [facility] 07-20-2023 13:17-0400 SaO2% (BldA) [Mass fraction] 99 % Dr. Mayda Garcia Work Phone: [facility] 07-20-2023 13:17-0400 Systolic blood pressure 118 mm[Hg] Dr. Mayda Garcia Work Phone: [facility] 07-03-2023 00:06-0500 Body weight 73.[address] Mayda Garcia Work Phone: [facility] 07-01-2023 09:13-0500 Body height 157.[address] Mayda Garcia Work Phone: [facility] 07-01-2023 09:13-0500 Body weight 73.[address] Mayda Garcia Work Phone: [facility] 06-17-2023 10:16-0500 Body height 157.[address] Mayda Garcia Work Phone: [facility] 06-17-2023 10:16-0500 Body mass index (BMI) [Ratio] 28.8 kg/m2 Dr. Mayda Garcia Work Phone: [facility] 06-17-2023 10:16-0500 Body temperature 97.4 [degF] Dr. Mayda Garcia Work Phone: [facility] 06-17-2023 10:16-0500 Body weight 71.[address] Mayda Garcia Work Phone: [facility] 06-17-2023 10:16-0500 Diastolic blood pressure 82 mm[Hg] Dr. Mayda Garcia Work Phone: [facility] 06-17-2023 10:16-0500 Heart rate 93 /min Dr. Mayda Garcia Work Phone: [facility] 06-17-2023 10:16-0500 Respiratory rate 16 /min Dr. Mayda Garcia Work Phone: [facility] 06-17-2023 10:16-0500 SaO2% (BldA) [Mass fraction] 98 % Dr. Mayda Garcia Work Phone: [facility] 06-17-2023 10:16-0500 Systolic blood pressure 126 mm[Hg] Dr. Mayda Garcia Work Phone: [facility] 06-10-2023 07:48-0500 Body mass index (BMI) [Ratio] 29.4 kg/m2 Dr. Mayda Garcia Work Phone: [facility] 06-10-2023 07:48-0500 Body temperature 98 [degF] Dr. Mayda Garcia Work Phone: [facility] 06-10-2023 07:48-0500 Body weight 73.[address] Mayda Garcia Work Phone: [facility] 06-10-2023 07:48-0500 Diastolic blood pressure 90 mm[Hg] Dr. Mayda Garcia Work Phone: [facility] 06-10-2023 07:48-0500 Heart rate 79 /min Dr. Mayda Garcia Work Phone: [facility] 06-10-2023 07:48-0500 Respiratory rate 20 /min Dr. Mayda Garcia Work Phone: [facility] 06-10-2023 07:48-0500 SaO2% (BldA) [Mass fraction] 99 % Dr. Mayda Garcia Work Phone: [facility] 06-10-2023 07:48-0500 Systolic blood pressure 171 mm[Hg] Dr. Mayda Garcia Work Phone: [facility] 06-01-2023 10:05-0500 Body mass index (BMI) [Ratio] 29.8 kg/m2 Dr. Mayda Garcia Work Phone: [facility] 06-01-2023 10:05-0500 Body weight 73.[address] Mayda Garcia Work Phone: [facility] 06-01-2023 10:05-0500 Diastolic blood pressure 64 mm[Hg] Dr. Mayda Garcia Work Phone: [facility] 06-01-2023 10:05-0500 Systolic blood pressure 104 mm[Hg] Dr. Mayda Garcia Work Phone: [facility] 06-01-2023 09:57-0500 Heart rate 101 /min Dr. Mayda Garcia Work Phone: [facility] 06-01-2023 09:57-0500 SaO2% (BldA) [Mass fraction] 97 % Dr. Mayda Garcia Work Phone: [facility] 06-01-2023 09:50-0500 Body height 157.[address] Mayda Garcia Work Phone: [facility] 05-18-2023 10:38-0500 Body temperature 98 [degF] Dr. Mayda Garcia Work Phone: [facility] 05-18-2023 10:38-0500 Diastolic blood pressure 70 mm[Hg] Dr. Mayda Garcia Work Phone: [facility] 05-18-2023 10:38-0500 Heart rate 70 /min Dr. Mayda Garcia Work Phone: [facility] 05-18-2023 10:38-0500 Respiratory rate 15 /min Dr. Mayda Garcia Work Phone: [facility] 05-18-2023 10:38-0500 SaO2% (BldA) [Mass fraction] 98 % Dr. Mayda Gacria Work Phone: [facility] 05-18-2023 10:38-0500 Systolic blood pressure 120 mm[Hg] Dr. Mayda Garcia Work Phone: [facility] 04-16-2023 11:43-0500 Body temperature 97.7 [degF] Dr. Mayda Garcia Work Phone: [facility] 04-16-2023 11:43-0500 Body weight 75.[address] Mayda Garcia Work Phone: [facility] 04-16-2023 11:43-0500 Diastolic blood pressure 70 mm[Hg] Dr. Mayda Garcia Work Phone: [facility] 04-16-2023 11:43-0500 Heart rate 99 /min Dr. Mayda Garcia Work Phone: [facility] 04-16-2023 11:43-0500 Respiratory rate 16 /min Dr. Mayda Garcia Work Phone: [facility] 04-16-2023 11:43-0500 SaO2% (BldA) [Mass fraction] 99 % Dr. Mayda Garcia Work Phone: [facility] 04-16-2023 11:43-0500 Systolic blood pressure 130 mm[Hg] Dr. Mayda Garcia Work Phone: [facility] 03-19-2023 09:50-0500 Body height 157.[address] Mayda Garcia Work Phone: [facility] 03-19-2023 09:50-0500 Body mass index (BMI) [Ratio] 29.8 kg/m2 Dr. Mayda Garcia Work Phone: [facility] 03-19-2023 09:50-0500 Body weight 73.[address] Mayda aGrcia Work Phone: [facility] 03-19-2023 09:50-0500 Diastolic blood pressure 60 mm[Hg] Dr. Mayda Garcia Work Phone: [facility] 03-19-2023 09:50-0500 Heart rate 92 /min Dr. Mayda Garcia Work Phone: [facility] 03-19-2023 09:50-0500 Respiratory rate 16 /min Dr. Mayda Garcia Work Phone: [facility] 03-19-2023 09:50-0500 Systolic blood pressure 98 mm[Hg] Dr. Mayda Garcia Work Phone: [facility] 03-16-2023 14:11-0500 Body mass index (BMI) [Ratio] 30.4 kg/m2 Dr. Mayda Garcia Work Phone: [facility] 03-16-2023 14:11-0500 Body temperature 97.1 [degF] Dr. Mayda Garcia Work Phone: [facility] 03-16-2023 14:11-0500 Body weight 75.[address] Mayda Garcia Work Phone: [facility] 03-16-2023 14:11-0500 Diastolic blood pressure 62 mm[Hg] Dr. Mayda Garcia Work Phone: [facility] 03-16-2023 14:11-0500 Heart rate 102 /min Dr. Mayda Garcia Work Phone: [facility] 03-16-2023 14:11-0500 Respiratory rate 15 /min Dr. Mayda Garcia Work Phone: [facility] 03-16-2023 14:11-0500 SaO2% (BldA) [Mass fraction] 97 % Dr. Myada Garcia Work Phone: [facility] 03-16-2023 14:11-0500 Systolic blood pressure 118 mm[Hg] Dr. Mayda Garcia Work Phone: [facility] 03-16-2023 13:21-0500 Body mass index (BMI) [Ratio] 30.5 kg/m2 Dr. Mayda Garcia Work Phone: [facility] 03-16-2023 13:21-0500 Body temperature 98.2 [degF] Dr. Mayda Garcia Work Phone: [facility] 03-16-2023 13:21-0500 Body weight 75.[address] Mayda Garcia Work Phone: [facility] 03-16-2023 13:21-0500 Diastolic blood pressure 63 mm[Hg] Dr. Mayda Garcia Work Phone: [facility] 03-16-2023 13:21-0500 Heart rate 82 /min Dr. Mayda Garcia Work Phone: [facility] 03-16-2023 13:21-0500 Respiratory rate 14 /min Dr. Mayda Garcia Work Phone: [facility] 03-16-2023 13:21-0500 SaO2% (BldA) [Mass fraction] 99 % Dr. Mayda Garcia Work Phone: [facility] 03-16-2023 13:21-0500 Systolic blood pressure 120 mm[Hg] Dr. Mayda Garcia Work Phone: [facility] 02-18-2023 10:07-0400 Body height 157.[address] Mayda Garcia Work Phone: [facility] 02-18-2023 10:07-0400 Body mass index (BMI) [Ratio] 30.5 kg/m2 Dr. Mayda Garcia Work Phone: [facility] 02-18-2023 10:07-0400 Body weight 75.[address] Mayda Garcia Work Phone: [facility] 02-18-2023 10:07-0400 Diastolic blood pressure 76 mm[Hg] Dr. Mayda Garcia Work Phone: [facility] 02-18-2023 10:07-0400 Heart rate 103 /min Dr. Mayda Garcia Work Phone: [facility] 02-18-2023 10:07-0400 Respiratory rate 18 /min Dr. Mayda Garcia Work Phone: [facility] 02-18-2023 10:07-0400 Systolic blood pressure 114 mm[Hg] Dr. Mayda Garcia Work Phone: [facility] 02-11-2023 11:01-0400 Body mass index (BMI) [Ratio] 29.5 kg/m2 Dr. Mayda Garcia Work Phone: [facility] 02-11-2023 11:01-0400 Body temperature 98.4 [degF] Dr. Mayda Garcia Work Phone: [facility] 02-11-2023 11:01-0400 Body weight 73.[address] Mayda Garcia Work Phone: [facility] 02-11-2023 11:01-0400 Diastolic blood pressure 70 mm[Hg] Dr. Mayda Garcia Work Phone: [facility] 02-11-2023 11:01-0400 Heart rate 90 /min Dr. Mayda Garcia Work Phone: [facility] 02-11-2023 11:01-0400 Respiratory rate 17 /min Dr. Mayda Garcia Work Phone: [facility] 02-11-2023 11:01-0400 SaO2% (BldA) [Mass fraction] 96 % Dr. Mayda Garcia Work Phone: [facility] 02-11-2023 11:01-0400 Systolic blood pressure 110 mm[Hg] Dr. Mayda Garcia Work Phone: [facility] 02-04-2023 10:53-0400 Body mass index (BMI) [Ratio] 30.5 kg/m2 Dr. Mayda Garcia Work Phone: [facility] 02-04-2023 10:53-0400 Body temperature 97.6 [degF] Dr. Mayda Garcia Work Phone: [facility] 02-04-2023 10:53-0400 Body weight 75.[address] Mayda Garcia Work Phone: [facility] 02-04-2023 10:53-0400 Diastolic blood pressure 80 mm[Hg] Dr. Mayda Garcia Work Phone: [facility] 02-04-2023 10:53-0400 Heart rate 91 /min Dr. Mayda Garcia Work Phone: [facility] 02-04-2023 10:53-0400 Respiratory rate 16 /min Dr. Mayda Garcia Work Phone: [facility] 02-04-2023 10:53-0400 SaO2% (BldA) [Mass fraction] 98 % Dr. Mayda Garcia Work Phone: [facility] 02-04-2023 10:53-0400 Systolic blood pressure 124 mm[Hg] Dr. Mayda Garcia Work Phone: [facility] 01-26-2023 11:37-0400 Body temperature 98.3 [degF] Dr. Mayda Garcia Work Phone: [facility] 01-26-2023 11:37-0400 Diastolic blood pressure 67 mm[Hg] Dr. Mayda Garcia Work Phone: [facility] 01-26-2023 11:37-0400 Heart rate 86 /min Dr. Mayda Garcia Work Phone: [facility] 01-26-2023 11:37-0400 Respiratory rate 18 /min Dr. Madya Garcia Work Phone: [facility] 01-26-2023 11:37-0400 SaO2% (BldA) [Mass fraction] 98 % Dr. Mayda Garcia Work Phone: [facility] 01-26-2023 11:37-0400 Systolic blood pressure 107 mm[Hg] Dr. Mayda Garcia Work Phone: [facility] 01-24-2023 06:00-0400 Body mass index (BMI) [Ratio] 31.3 kg/m2 Dr. Mayda Garcia Work Phone: [facility] 01-24-2023 06:00-0400 Body weight 77.[address] Mayda Garcia Work Phone: [facility] 01-22-2023 06:03-0400 Inhaled oxygen flow rate 2 L/min Dr. Mayda Garcia Work Phone: [facility] 01-21-2023 16:06-0400 Body height 157.[address] Mayda Garcia Work Phone: [facility] 01-11-2023 07:00-0400 Body temperature 98.29 [degF] Azam Rose MD Work Phone: [facility] 01-11-2023 07:00-0400 Diastolic blood pressure 62 mm[Hg] Azam Rose MD Work Phone: [facility] 01-11-2023 07:00-0400 Heart rate 81 /min Azam Rose MD Work Phone: [facility] 01-11-2023 07:00-0400 Respiratory rate 16 /min Azam Rose MD Work Phone: [facility] 01-11-2023 07:00-0400 SaO2% (BldA) [Mass fraction] 96 % Azam Rose MD Work Phone: [facility] 01-11-2023 07:00-0400 Systolic blood pressure 112 mm[Hg] Azam Rose MD Work Phone: [facility] 01-11-2023 04:43-0400 Body mass index (BMI) [Ratio] 31.21 kg/m2 Azam Rose MD Work Phone: [facility] 01-11-2023 04:43-0400 Body weight 77.4 kg Azam Rose MD Work Phone: [facility] 01-02-2023 08:47-0400 Body height 157.5 cm Azam Rose MD Work Phone: [facility] 01-01-2023 10:48-0400 SaO2% (BldA) [Mass fraction] 99.2 % Azam Rose MD Work Phone: [facility] 12-23-2022 10:18-0400 Body height 157.5 cm Azam Rose MD Work Phone: [facility] 12-23-2022 10:18-0400 Body mass index (BMI) [Ratio] 31.17 kg/m2 Azam Rose MD Work Phone: [facility] 12-23-2022 10:18-0400 Body weight 77.29 kg Azam Rose MD Work Phone: [facility] 12-23-2022 10:18-0400 Diastolic blood pressure 78 mm[Hg] Azam Rose MD Work Phone: [facility] 12-23-2022 10:18-0400 Heart rate 91 /min Azam Rose MD Work Phone: [facility] 12-23-2022 10:18-0400 Systolic blood pressure 140 mm[Hg] Azam Rose MD Work Phone: [facility] 12-19-2022 14:00-0400 Body temperature 97.2 [degF] Dr. Mayda Garcia Work Phone: [facility] 12-19-2022 14:00-0400 Diastolic blood pressure 69 mm[Hg] Dr. Mayda Garcia Work Phone: [facility] 12-19-2022 14:00-0400 Heart rate 92 /min Dr. Mayda Garcia Work Phone: [facility] 12-19-2022 14:00-0400 Respiratory rate 18 /min Dr. Mayda Garcia Work Phone: [facility] 12-19-2022 14:00-0400 SaO2% (BldA) [Mass fraction] 100 % Dr. Mayda Garcia Work Phone: [facility] 12-19-2022 14:00-0400 Systolic blood pressure 140 mm[Hg] Dr. Mayda Garcia Work Phone: [facility] 12-18-2022 10:26-0400 Body height 157.[address] Mayda Garcia Work Phone: [facility] 12-18-2022 10:26-0400 Body mass index (BMI) [Ratio] 31.4 kg/m2 Dr. Mayda Garcia Work Phone: [facility] 12-18-2022 10:26-0400 Body weight 77.[address] Mayda Garcia Work Phone: [facility] 12-18-2022 10:00-0400 Respiratory rate 18 /min Dr. Mayda Garcia Work Phone: [facility] 12-18-2022 09:15-0400 Body temperature 98.1 [degF] Dr. Mayda Garcia Work Phone: [facility] 12-18-2022 09:15-0400 Diastolic blood pressure 72 mm[Hg] Dr. Mayda Garcia Work Phone: [facility] 12-18-2022 09:15-0400 Heart rate 74 /min Dr. Mayda Garcia Work Phone: [facility] 12-18-2022 09:15-0400 SaO2% (BldA) [Mass fraction] 95 % Dr. Mayda Garcia Work Phone: [facility] 12-18-2022 09:15-0400 Systolic blood pressure 148 mm[Hg] Dr. Mayda Garcia Work Phone: [facility] 12-18-2022 05:23-0400 Body height 187.[address] Mayda Garcia Work Phone: [facility] 12-18-2022 05:23-0400 Body mass index (BMI) [Ratio] 22.4 kg/m2 Dr. Mayda Garcia Work Phone: [facility] 12-18-2022 05:23-0400 Body weight 79.[address] Mayda Garcia Work Phone: [facility] 12-11-2022 14:43-0400 Body mass index (BMI) [Ratio] 30.9 kg/m2 Dr. Mayda Garcia Work Phone: [facility] 12-11-2022 14:43-0400 Body temperature 98.3 [degF] Dr. Mayda Garcia Work Phone: [facility] 12-11-2022 14:43-0400 Body weight 76.[address] Mayda Garcia Work Phone: [facility] 12-11-2022 14:43-0400 Diastolic blood pressure 76 mm[Hg] Dr. Mayda Garcia Work Phone: [facility] 12-11-2022 14:43-0400 Heart rate 97 /min Dr. Mayda Garcia Work Phone: [facility] 12-11-2022 14:43-0400 Respiratory rate 16 /min Dr. Mayda Garcia Work Phone: [facility] 12-11-2022 14:43-0400 SaO2% (BldA) [Mass fraction] 97 % Dr. Mayda Garcia Work Phone: [facility] 12-11-2022 14:43-0400 Systolic blood pressure 124 mm[Hg] Dr. Mayda Garcia Work Phone: [facility] 11-19-2022 14:56-0400 Body mass index (BMI) [Ratio] 31.7 kg/m2 Dr. Mayda Garcia Work Phone: [facility] 11-19-2022 14:56-0400 Body temperature 97.7 [degF] Dr. Mayda Garcia Work Phone: [facility] 11-19-2022 14:56-0400 Body weight 78.[address] Mayda Garcia Work Phone: [facility] 11-19-2022 14:56-0400 Diastolic blood pressure 78 mm[Hg] Dr. Mayda Garcia Work Phone: [facility] 11-19-2022 14:56-0400 Heart rate 90 /min Dr. Mayda Garcia Work Phone: [facility] 11-19-2022 14:56-0400 Respiratory rate 14 /min Dr. Mayda Garcia Work Phone: [facility] 11-19-2022 14:56-0400 SaO2% (BldA) [Mass fraction] 98 % Dr. Mayda Garcia Work Phone: [facility] 11-19-2022 14:56-0400 Systolic blood pressure 130 mm[Hg] Dr. Mayda Garcia Work Phone: [facility] 10-10-2022 11:04-0400 Body height 157.[address] Mayda Garcia Work Phone: [facility] 10-10-2022 11:04-0400 Body mass index (BMI) [Ratio] 31.4 kg/m2 Dr. Mayda Garcia Work Phone: [facility] 10-10-2022 11:04-0400 Body weight 78.[address] Mayda Garcia Work Phone: [facility] 10-03-2022 10:42-0400 Body height 157.[address] Mayda Garcia Work Phone: [facility] 10-03-2022 10:42-0400 Body mass index (BMI) [Ratio] 31.7 kg/m2 Dr. Mayda Garcia Work Phone: [facility] 10-03-2022 10:42-0400 Body temperature 97.1 [degF] Dr. Mayda Garcia Work Phone: [facility] 10-03-2022 10:42-0400 Body weight 78.[address] Mayda Garcia Work Phone: [facility] 10-03-2022 10:42-0400 Diastolic blood pressure 84 mm[Hg] Dr. Mayda Garcia Work Phone: [facility] 10-03-2022 10:42-0400 Heart rate 112 /min Dr. Mayda Garcia Work Phone: [facility] 10-03-2022 10:42-0400 Respiratory rate 18 /min Dr. Mayda Garcia Work Phone: [facility] 10-03-2022 10:42-0400 SaO2% (BldA) [Mass fraction] 98 % Dr. Mayda Garcia Work Phone: [facility] 10-03-2022 10:42-0400 Systolic blood pressure 138 mm[Hg] Dr. Mayda Garcia Work Phone: [facility] 10-02-2022 11:41-0400 Body mass index (BMI) [Ratio] 31.5 kg/m2 Dr. Mayda Garcia Work Phone: [facility] 10-02-2022 11:41-0400 Body temperature 98 [degF] Dr. Mayda Garcia Work Phone: [facility] 10-02-2022 11:41-0400 Body weight 78.[address] Mayda Garcia Work Phone: [facility] 10-02-2022 11:41-0400 Diastolic blood pressure 60 mm[Hg] Dr. Mayda Garcia Work Phone: [facility] 10-02-2022 11:41-0400 Heart rate 91 /min Dr. Mayda Garcia Work Phone: [facility] 10-02-2022 11:41-0400 Respiratory rate 17 /min Dr. Mayda Garcia Work Phone: [facility] 10-02-2022 11:41-0400 SaO2% (BldA) [Mass fraction] 97 % Dr. Mayda Garcia Work Phone: [facility] 10-02-2022 11:41-0400 Systolic blood pressure 118 mm[Hg] Dr. Mayda Garcia Work Phone: [facility] 08-22-2022 15:19-0400 Body mass index (BMI) [Ratio] 32.1 kg/m2 Dr. Mayda Garcia Work Phone: [facility] 08-22-2022 15:19-0400 Body temperature 98 [degF] Dr. Mayda Garcia Work Phone: [facility] 08-22-2022 15:19-0400 Body weight 79.[address] Mayda Garcia Work Phone: [facility] 08-22-2022 15:19-0400 Diastolic blood pressure 72 mm[Hg] Dr. Mayda Garcia Work Phone: [facility] 08-22-2022 15:19-0400 Heart rate 89 /min Dr. Mayda Garcia Work Phone: [facility] 08-22-2022 15:19-0400 Respiratory rate 16 /min Dr. Mayda Garcia Work Phone: [facility] 08-22-2022 15:19-0400 SaO2% (BldA) [Mass fraction] 97 % Dr. Mayda Garcia Work Phone: [facility] 08-22-2022 15:19-0400 Systolic blood pressure 130 mm[Hg] Dr. Mayda Garcia Work Phone: [facility] 08-14-2022 01:11-0400 Diastolic blood pressure 81 mm[Hg] Dr. Mayda Garcia Work Phone: [facility] 08-14-2022 01:11-0400 Heart rate 87 /min Dr. Mayda Garcia Work Phone: [facility] 08-14-2022 01:11-0400 Respiratory rate 17 /min Dr. Mayda Garcia Work Phone: [facility] 08-14-2022 01:11-0400 SaO2% (BldA) [Mass fraction] 100 % Dr. Mayda Garcia Work Phone: [facility] 08-14-2022 01:11-0400 Systolic blood pressure 163 mm[Hg] Dr. Mayda Garcia Work Phone: [facility] 08-13-2022 21:57-0400 Body height 157.[address] Mayda Garcia Work Phone: [facility] 08-13-2022 21:57-0400 Body mass index (BMI) [Ratio] 35.2 kg/m2 Dr. Mayda Garcia Work Phone: [facility] 08-13-2022 21:57-0400 Body temperature 98.2 [degF] Dr. Mayda Garcia Work Phone: [facility] 08-13-2022 21:57-0400 Body weight 87.[address] Mayda Garcia Work Phone: [facility] 06-30-2022 10:56-0500 Body mass index (BMI) [Ratio] 32.1 kg/m2 Dr. Mayda Garcia Work Phone: [facility] 06-30-2022 10:56-0500 Body temperature 98.8 [degF] Dr. Mayda Garcia Work Phone: [facility] 06-30-2022 10:56-0500 Body weight 79.[address] Mayda Garcia Work Phone: [facility] 06-30-2022 10:56-0500 Diastolic blood pressure 80 mm[Hg] Dr. Mayda Garcia Work Phone: [facility] 06-30-2022 10:56-0500 Heart rate 87 /min Dr. Mayda Garcia Work Phone: [facility] 06-30-2022 10:56-0500 Respiratory rate 16 /min Dr. Mayda Garcia Work Phone: [facility] 06-30-2022 10:56-0500 SaO2% (BldA) [Mass fraction] 99 % Dr. Mayda Garcia Work Phone: [facility] 06-30-2022 10:56-0500 Systolic blood pressure 128 mm[Hg] Dr. Mayda Garcia Work Phone: [facility] 06-09-2022 13:30-0500 Body mass index (BMI) [Ratio] 35.6 kg/m2 Dr. Mayda Garcia Work Phone: [facility] 06-09-2022 13:30-0500 Body temperature 98.5 [degF] Dr. Mayda Garcia Work Phone: [facility] 06-09-2022 13:30-0500 Body weight 88.[address] Mayda Garcia Work Phone: [facility] 06-09-2022 13:30-0500 Diastolic blood pressure 74 mm[Hg] Dr. Mayda Garcia Work Phone: [facility] 06-09-2022 13:30-0500 Heart rate 102 /min Dr. Mayda Garcia Work Phone: [facility] 06-09-2022 13:30-0500 Respiratory rate 16 /min Dr. Mayda Garcia Work Phone: [facility] 06-09-2022 13:30-0500 SaO2% (BldA) [Mass fraction] 96 % Dr. Mayda Garcia Work Phone: [facility] 06-09-2022 13:30-0500 Systolic blood pressure 136 mm[Hg] Dr. Mayda Garcia Work Phone: [facility] 06-07-2022 17:41-0500 Body height 157.[address] Mayda Garcia Work Phone: [facility] 06-07-2022 17:41-0500 Body mass index (BMI) [Ratio] 35.6 kg/m2 Dr. Mayda Garcia Work Phone: [facility] 06-07-2022 17:41-0500 Body temperature 97.9 [degF] Dr. Mayda Garcia Work Phone: [facility] 06-07-2022 17:41-0500 Body weight 88.[address] Mayda Garcia Work Phone: [facility] 06-07-2022 17:41-0500 Diastolic blood pressure 85 mm[Hg] Dr. Mayda Garcia Work Phone: [facility] 06-07-2022 17:41-0500 Heart rate 90 /min Dr. Mayda Garcia Work Phone: [facility] 02-04-2023 17:41-0500 Respiratory rate 18 /min Dr. Mayda Garcia Work Phone: [facility] 06-07-2022 17:41-0500 SaO2% (BldA) [Mass fraction] 100 % Dr. Mayda Garcia Work Phone: [facility] 06-07-2022 17:41-0500 Systolic blood pressure 180 mm[Hg] Dr. Mayda Garcia Work Phone: [facility] 06-06-2022 14:05-0500 Respiratory rate 18 /min Dr. Mayda Garcia Work Phone: [facility] 06-06-2022 13:04-0500 Diastolic blood pressure 70 mm[Hg] Dr. Mayda Garcia Work Phone: [facility] 06-06-2022 13:04-0500 Heart rate 79 /min Dr. Mayda Garcia Work Phone: [facility] 06-06-2022 13:04-0500 Systolic blood pressure 133 mm[Hg] Dr. Mayda Garcia Work Phone: [facility] 06-06-2022 12:27-0500 SaO2% (BldA) [Mass fraction] 98 % Dr. Mayda Garcia Work Phone: [facility] 06-06-2022 09:11-0500 Body mass index (BMI) [Ratio] 33.7 kg/m2 Dr. Mayda Garcia Work Phone: [facility] 06-06-2022 09:11-0500 Body temperature 98.1 [degF] Dr. Mayda Garcia Work Phone: [facility] 06-06-2022 09:11-0500 Body weight 83.[address] Mayda Garcia Work Phone: [facility] 05-06-2022 13:32-0500 Body temperature 96.2 [degF] Dr. Mayda Garcia Work Phone: [facility] 05-06-2022 13:32-0500 Body weight 80.[address] Mayda Garcia Work Phone: [facility] 05-06-2022 13:32-0500 Diastolic blood pressure 66 mm[Hg] Dr. Mayda Garcia Work Phone: [facility] 05-06-2022 13:32-0500 Heart rate 89 /min Dr. Mayda Garcia Work Phone: [facility] 05-06-2022 13:32-0500 Respiratory rate 16 /min Dr. Mayda Garcia Work Phone: [facility] 05-06-2022 13:32-0500 SaO2% (BldA) [Mass fraction] 96 % Dr. Mayda Garcia Work Phone: [facility] 05-06-2022 13:32-0500 Systolic blood pressure 136 mm[Hg] Dr. Myada Garcia Work Phone: [facility] 04-02-2022 11:18-0500 Body height 157.[address] Mayda Garcia Work Phone: [facility] 04-02-2022 11:18-0500 Body mass index (BMI) [Ratio] 32 kg/m2 Dr. Mayda Garcia Work Phone: [facility] 04-02-2022 11:18-0500 Body temperature 98.5 [degF] Dr. Mayda Garcia Work Phone: [facility] 04-02-2022 11:18-0500 Body weight 79.[address] Mayda Garcia Work Phone: [facility] 04-02-2022 11:18-0500 Diastolic blood pressure 64 mm[Hg] Dr. Mayda Garcia Work Phone: [facility] 04-02-2022 11:18-0500 Heart rate 100 /min Dr. Mayda Garcia Work Phone: [facility] 04-02-2022 11:18-0500 Respiratory rate 14 /min Dr. Mayda Garcia Work Phone: [facility] 04-02-2022 11:18-0500 SaO2% (BldA) [Mass fraction] 99 % Dr. Mayda Garcia Work Phone: [facility] 04-02-2022 11:18-0500 Systolic blood pressure 104 mm[Hg] Dr. Mayda Garcia Work Phone: [facility] 03-29-2022 10:32-0500 Body height 157.[address] Mayda Garcia Work Phone: [facility] Work Phone: 03-29-2022 10:32-0500 Body mass index (BMI) [Ratio] 32.8 kg/m2 Dr. Mayda Garcia Work Phone: [facility] 03-29-2022 10:32-0500 Body temperature 96 [degF] Dr. Mayda Garcia Work Phone: [facility] 03-29-2022 10:32-0500 Body weight 81.[address] Mayda Garcia Work Phone: [facility] 03-29-2022 10:32-0500 Diastolic blood pressure 93 mm[Hg] Dr. Mayda Garcia Work Phone: [facility] 03-29-2022 10:32-0500 Heart rate 88 /min Dr. Mayda Garcia Work Phone: [facility] 03-29-2022 10:32-0500 Respiratory rate 18 /min Dr. Mayda Garcia Work Phone: [facility] 03-29-2022 10:32-0500 SaO2% (BldA) [Mass fraction] 100 % Dr. Mayda Garcia Work Phone: [facility] 03-29-2022 10:32-0500 Systolic blood pressure 151 mm[Hg] Dr. Mayda Garcia Work Phone: [facility] 03-14-2022 20:13-0500 Diastolic blood pressure 85 mm[Hg] Dr. Mayda Garcia Work Phone: [facility] 03-14-2022 20:13-0500 Heart rate 93 /min Dr. Mayda Garcia Work Phone: [facility] 03-14-2022 20:13-0500 Respiratory rate 18 /min Dr. Mayda Garcia Work Phone: [facility] 03-14-2022 20:13-0500 SaO2% (BldA) [Mass fraction] 98 % Dr. Mayda Garcia Work Phone: [facility] 03-14-2022 20:13-0500 Systolic blood pressure 150 mm[Hg] Dr. Mayda Garcia Work Phone: [facility] 03-14-2022 16:12-0500 Body height 157.[address] Mayda Garcia Work Phone: [facility] Work Phone: 03-14-2022 16:12-0500 Body mass index (BMI) [Ratio] 33 kg/m2 Dr. Mayda Garcia Work Phone: [facility] 03-14-2022 16:12-0500 Body temperature 97.1 [degF] Dr. Mayda Garcia Work Phone: [facility] 03-14-2022 16:12-0500 Body weight 81.[address] Mayda Garcia Work Phone: [facility] 03-10-2022 10:13-0500 Body mass index (BMI) [Ratio] 33.3 kg/m2 Dr. Mayda Garcia Work Phone: [facility] 03-10-2022 10:13-0500 Body temperature 98.2 [degF] Dr. Mayda Garcia Work Phone: [facility] 03-10-2022 10:13-0500 Body weight 82.[address] Mayda Garcia Work Phone: [facility] 03-10-2022 10:13-0500 Diastolic blood pressure 76 mm[Hg] Dr. Mayda Garcia Work Phone: [facility] 03-10-2022 10:13-0500 Heart rate 94 /min Dr. Mayda Garcia Work Phone: [facility] 03-10-2022 10:13-0500 Respiratory rate 18 /min Dr. Mayda Garcia Work Phone: [facility] 03-10-2022 10:13-0500 SaO2% (BldA) [Mass fraction] 96 % Dr. Mayda Garcia Work Phone: [facility] 03-10-2022 10:13-0500 Systolic blood pressure 118 mm[Hg] Dr. Mayda Garcia Work Phone: [facility] 01-14-2022 12:21-0400 Body height 157.[address] Mayda Garcia Work Phone: [facility] Work Phone: 01-14-2022 12:21-0400 Body mass index (BMI) [Ratio] 31.6 kg/m2 Dr. Mayda Garcia Work Phone: [facility] Work Phone: 01-14-2022 12:21-0400 Body weight 78.[address] Mayda Garcia Work Phone: [facility] Work Phone: 01-14-2022 12:21-0400 Diastolic blood pressure 80 mm[Hg] Dr. Mayda Garcia Work Phone: [facility] Work Phone: 01-14-2022 12:21-0400 Heart rate 102 /min Dr. Mayda Garcia Work Phone: [facility] Work Phone: 01-14-2022 12:21-0400 Respiratory rate 16 /min Dr. Mayda Garcia Work Phone: [facility] Work Phone: 01-14-2022 12:21-0400 SaO2% (BldA) [Mass fraction] 98 % Dr. Mayda Garcia Work Phone: [facility] Work Phone: 01-14-2022 12:21-0400 Systolic blood pressure 130 mm[Hg] Dr. Mayda Garcia Work Phone: [facility] Work Phone: 01-10-2022 09:51-0400 Body mass index (BMI) [Ratio] 32.1 kg/m2 Dr. Mayda Garcia Work Phone: [facility] Work Phone: 01-10-2022 09:51-0400 Body temperature 97 [degF] Dr. Mayda Garcia Work Phone: [facility] Work Phone: 01-10-2022 09:51-0400 Body weight 79.[address] Mayda Garcia Work Phone: [facility] Work Phone: 01-10-2022 09:51-0400 Diastolic blood pressure 78 mm[Hg] Dr. Mayda Garcia Work Phone: [facility] Work Phone: 01-10-2022 09:51-0400 Heart rate 80 /min Dr. Mayda Garcia Work Phone: [facility] Work Phone: 01-10-2022 09:51-0400 Respiratory rate 16 /min Dr. Mayda Garcia Work Phone: [facility] Work Phone: 01-10-2022 09:51-0400 SaO2% (BldA) [Mass fraction] 98 % Dr. Mayda Garcia Work Phone: [facility] Work Phone: 01-10-2022 09:51-0400 Systolic blood pressure 100 mm[Hg] Dr. Mayda Garcia Work Phone: [facility] Work Phone: 01-03-2022 13:14-0400 Body temperature 97.3 [degF] Dr. Mayda Garcia Work Phone: [facility] Work Phone: 01-03-2022 13:14-0400 Diastolic blood pressure 77 mm[Hg] Dr. Mayda Garcia Work Phone: [facility] Work Phone: 01-03-2022 13:14-0400 Heart rate 77 /min Dr. Mayda Garcia Work Phone: [facility] Work Phone: 01-03-2022 13:14-0400 Respiratory rate 18 /min Dr. Mayda Garcia Work Phone: [facility] Work Phone: 01-03-2022 13:14-0400 SaO2% (BldA) [Mass fraction] 99 % Dr. Mayda Garcia Work Phone: [facility] Work Phone: 01-03-2022 13:14-0400 Systolic blood pressure 123 mm[Hg] Dr. Mayda Garcia Work Phone: [facility] Work Phone: 01-03-2022 06:00-0400 Body weight 81.[address] Mayda Garcia Work Phone: [facility] Work Phone: 01-02-2022 12:50-0400 Body height 157.[address] Mayda Garcia Work Phone: [facility] Work Phone: 01-02-2022 12:50-0400 Body mass index (BMI) [Ratio] 32.7 kg/m2 Dr. Mayda Garcia Work Phone: [facility] Work Phone: 12-23-2021 15:00-0400 Body mass index (BMI) [Ratio] 30.4 kg/m2 Dr. Mayda Garcia Work Phone: [facility] Work Phone: 12-23-2021 15:00-0400 Body temperature 98.7 [degF] Dr. Mayad Garcia Work Phone: [facility] Work Phone: 12-23-2021 15:00-0400 Body weight 80.[address] Mayda Garcia Work Phone: [facility] Work Phone: 12-23-2021 15:00-0400 Diastolic blood pressure 64 mm[Hg] Dr. Mayda Garcia Work Phone: [facility] Work Phone: 12-23-2021 15:00-0400 Heart rate 92 /min Dr. Mayda Garcia Work Phone: [facility] Work Phone: 12-23-2021 15:00-0400 Respiratory rate 18 /min Dr. Mayda Garcia Work Phone: [facility] Work Phone: 12-23-2021 15:00-0400 SaO2% (BldA) [Mass fraction] 97 % Dr. Mayda Garcia Work Phone: [facility] Work Phone: 12-23-2021 15:00-0400 Systolic blood pressure 140 mm[Hg] Dr. Mayda Garcia Work Phone: [facility] Work Phone: 12-17-2021 05:21-0400 Diastolic blood pressure 62 mm[Hg] Dr. Mayda Garcia Work Phone: [facility] Work Phone: 12-17-2021 05:21-0400 Heart rate 97 /min Dr. Mayda Garcia Work Phone: [facility] Work Phone: 12-17-2021 05:21-0400 Respiratory rate 18 /min Dr. Mayda Garcia Work Phone: [facility] Work Phone: 12-17-2021 05:21-0400 SaO2% (BldA) [Mass fraction] 98 % Dr. Mayda Garcia Work Phone: [facility] Work Phone: 12-17-2021 05:21-0400 Systolic blood pressure 154 mm[Hg] Dr. Mayda Garcia Work Phone: [facility] Work Phone: 12-17-2021 03:52-0400 Body height 162.[address] Mayda Garcia Work Phone: [facility] Work Phone: 12-17-2021 03:52-0400 Body mass index (BMI) [Ratio] 31 kg/m2 Dr. Mayda Garcia Work Phone: [facility] Work Phone: 12-17-2021 03:52-0400 Body temperature 97.8 [degF] Dr. Mayda Garcia Work Phone: [facility] Work Phone: 12-17-2021 03:52-0400 Body weight 82.[address] Mayda Garcia Work Phone: [facility] Work Phone: 11-28-2021 19:34-0400 Body height 187.[address] Mayda Garcia Work Phone: [facility] Work Phone: 11-28-2021 19:34-0400 Body mass index (BMI) [Ratio] 22.4 kg/m2 Dr. Mayda Garcia Work Phone: [facility] Work Phone: 11-28-2021 19:34-0400 Body temperature 98.6 [degF] Dr. Mayda Garcia Work Phone: [facility] Work Phone: 11-28-2021 19:34-0400 Body weight 79.[address] Mayda Garcia Work Phone: [facility] Work Phone: 11-28-2021 19:34-0400 Diastolic blood pressure 74 mm[Hg] Dr. Mayda Garcia Work Phone: [facility] Work Phone: 11-28-2021 19:34-0400 Heart rate 109 /min Dr. Mayda Garcia Work Phone: [facility] Work Phone: 11-28-2021 19:34-0400 Respiratory rate 18 /min Dr. Mayda Garcia Work Phone: [facility] Work Phone: 11-28-2021 19:34-0400 SaO2% (BldA) [Mass fraction] 99 % Dr. Mayda Garcia Work Phone: [facility] Work Phone: 11-28-2021 19:34-0400 Systolic blood pressure 167 mm[Hg] Dr. Mayda Garcia Work Phone: [facility] Work Phone: 11-06-2021 16:11-0400 Body mass index (BMI) [Ratio] 32.5 kg/m2 Dr. Mayda Garcia Work Phone: [facility] Work Phone: 11-06-2021 16:11-0400 Body temperature 98.4 [degF] Dr. Mayda Garcia Work Phone: [facility] Work Phone: 11-06-2021 16:11-0400 Body weight 80.[address] Mayda Garcia Work Phone: [facility] Work Phone: 11-06-2021 16:11-0400 Diastolic blood pressure 70 mm[Hg] Dr. Mayda Garcia Work Phone: [facility] Work Phone: 11-06-2021 16:11-0400 Heart rate 97 /min Dr. Mayda Garcia Work Phone: [facility] Work Phone: 11-06-2021 16:11-0400 Respiratory rate 18 /min Dr. Mayda Garcia Work Phone: [facility] Work Phone: 11-06-2021 16:11-0400 SaO2% (BldA) [Mass fraction] 97 % Dr. Mayda Garcia Work Phone: [facility] Work Phone: 11-06-2021 16:11-0400 Systolic blood pressure 130 mm[Hg] Dr. Mayda Garcia Work Phone: [facility] Work Phone: 11-05-2021 10:56-0400 Body mass index (BMI) [Ratio] 32.3 kg/m2 Dr. Mayda Garcia Work Phone: [facility] Work Phone: 11-05-2021 10:56-0400 Body temperature 97.4 [degF] Dr. Mayda Garcia Work Phone: [facility] Work Phone: 11-05-2021 10:56-0400 Body weight 80.[address] Mayda Garcia Work Phone: [facility] Work Phone: 11-05-2021 10:56-0400 Diastolic blood pressure 78 mm[Hg] Dr. Mayda Garcia Work Phone: [facility] Work Phone: 11-05-2021 10:56-0400 Heart rate 91 /min Dr. Mayda Garcia Work Phone: [facility] Work Phone: 11-05-2021 10:56-0400 Respiratory rate 16 /min Dr. Mayda Garcia Work Phone: [facility] Work Phone: 11-05-2021 10:56-0400 SaO2% (BldA) [Mass fraction] 98 % Dr. Mayda Garcia Work Phone: [facility] Work Phone: 11-05-2021 10:56-0400 Systolic blood pressure 144 mm[Hg] Dr. Mayda Garcia Work Phone: [facility] Work Phone: 10-25-2021 15:34-0400 Body temperature 98.9 [degF] Dr. Mayda Garcia Work Phone: [facility] Work Phone: 10-25-2021 15:34-0400 Diastolic blood pressure 64 mm[Hg] Dr. Mayda Garcia Work Phone: [facility] Work Phone: 10-25-2021 15:34-0400 Heart rate 78 /min Dr. Mayda Garcia Work Phone: [facility] Work Phone: 10-25-2021 15:34-0400 Respiratory rate 12 /min Dr. Mayda Garcia Work Phone: [facility] Work Phone: 10-25-2021 15:34-0400 SaO2% (BldA) [Mass fraction] 98 % Dr. Mayda Garcia Work Phone: [facility] Work Phone: 10-25-2021 15:34-0400 Systolic blood pressure 126 mm[Hg] Dr. Mayda Garcia Work Phone: [facility] Work Phone: 10-25-2021 13:34-0400 Body height 157.[address] Mayda Garcia Work Phone: [facility] Work Phone: 10-25-2021 13:34-0400 Body mass index (BMI) [Ratio] 32.9 kg/m2 Dr. Mayda Garcia Work Phone: [facility] Work Phone: 10-25-2021 13:34-0400 Body weight 81.[address] Mayda Garcia Work Phone: [facility] Work Phone: 10-17-2021 10:00-0400 Body mass index (BMI) [Ratio] 31.6 kg/m2 Dr. Mayda Garcia Work Phone: [facility] Work Phone: 10-17-2021 10:00-0400 Body weight 78.[address] Mayda Garcia Work Phone: [facility] Work Phone: 10-17-2021 10:00-0400 Diastolic blood pressure 60 mm[Hg] Dr. Mayda Garcia Work Phone: [facility] Work Phone: 10-17-2021 10:00-0400 Heart rate 79 /min Dr. Mayda Garcia Work Phone: [facility] Work Phone: 10-17-2021 10:00-0400 Respiratory rate 16 /min Dr. Mayda Garcia Work Phone: [facility] Work Phone: 10-17-2021 10:00-0400 SaO2% (BldA) [Mass fraction] 99 % Dr. Mayda Garcia Work Phone: [facility] Work Phone: 10-17-2021 10:00-0400 Systolic blood pressure 106 mm[Hg] Dr. Mayda Garcia Work Phone: [facility] Work Phone: 07-16-2021 13:57-0400 Body mass index (BMI) [Ratio] 32.4 kg/m2 Dr. Mayda Garcia Work Phone: [facility] Work Phone: 07-16-2021 13:57-0400 Diastolic blood pressure 84 mm[Hg] Dr. Mayda Garcia Work Phone: [facility] Work Phone: 07-16-2021 13:57-0400 Systolic blood pressure 150 mm[Hg] Dr. Mayda Garcia Work Phone: [facility] Work Phone: 07-16-2021 13:05-0400 Body weight 80.[address] Mayda Garcia Work Phone: [facility] Work Phone: 07-16-2021 13:05-0400 Heart rate 106 /min Dr. Mayda Garcia Work Phone: [facility] Work Phone: 07-16-2021 13:05-0400 SaO2% (BldA) [Mass fraction] 97 % Dr. Mayda Garcia Work Phone: [facility] Work Phone: Encounters Encounter Date Encounter Type Care Provider Facility Start: 11-11-2024 ambulatory Vanita Venegas NP Fac ility:[facility] Start: 11-07-2024 End: 11-07-2024 Dr. Pepe Ruiz MD -[facility] Work Phone: Start: 11-07-2024 End: 11-07-[address] Mayda Garcia MD Work Phone: -[facility] Start: 10-20-2024 End: 10-20-[address] Mayda Garcia MD Work Phone: [facility] Work Phone: Start: 10-20-2024 End: 10-20-2024 Vanita Venegas NP-C -Sleep Lab Work Phone: Start: 10-20-2024 End: 10-20-2024 ambulatory Vanita Venegas NP Facility:[facility] Start: 10-03-2024 End: 10-03-2024 Dr. Pepe Ruiz MD -[facility] Work Phone: Start: 10-03-2024 End: 10-03-[address] Mayda Garcia MD Work Phone: [facility] Work Phone: Start: 09-28-2024 End: 09-28-2024 Vanita Venegas STOCK BLENDER-C -[facility] Work Phone: Start: 09-28-2024 End: 09-28-[address] Mayda Garcia MD Work Phone: [facility] Work Phone: Start: 09-22-2024 End: 09-22-[address] Mayda Garcia MD Work Phone: [facility] Work Phone: Start: 09-22-2024 End: 09-22-2024 Dr. Mayda Garcia MD -Laboratory [facility] Start: 09-21-2024 End: 09-21-2024 Dr. Mayda Garcia MD -[facility] Work Phone: Start: 09-21-2024 End: 09-22-[address] Mayda Garcia MD Work Phone: [facility] Work Phone: Start: 09-19-2024 End: 09-19-2024 Mikhail LÓPEZ -[facility] Work Phone: Start: 09-19-2024 End: 09-19-[address] Mayda Garcia MD Work Phone: [facility] Work Phone: Start: 09-16-2024 End: 09-16-2024 Dr. Mayda Garcia MD Work Phone: -Emergency Department Work Phone: Start: 09-16-2024 End: 09-16-2024 Emergency department patient visit Dr. Mayda Garcia MD Work Phone: [facility] Work Phone: Start: 08-11-2024 ambulatory Norisrosemary Espinzoachandana Facili ty:[facility] Start: 08-10-2024 End: 08-10-2024 Dr. Mayda Garcia MD -[facility] Work Phone: Start: 08-10-2024 End: 08-10-2024 ambulatory Mayda Garcia Facility:[facility] Start: 07-22-2024 ambulatory [facility] ty:[facility] Start: 07-15-2024 End: 07-15-2024 Dr. Mayda Garcia MD Work Phone: -Emergency Department Work Phone: Start: 07-15-2024 End: 07-15-2024 Emergency department patient visit Dr. Mayda Garcia MD Work Phone: [facility] Work Phone: Start: 07-14-2024 End: 07-14-2024 Emergency department patient visit Dr. Mayda Garcia MD Work Phone: [facility] Work Phone: Start: 07-14-2024 End: 07-14-2024 Dr. Mayda Garcia MD Work Phone: -Emergency Department Work Phone: Start: 07-05-2024 End: 07-05-2024 Dr. Pepe Ruiz MD -[facility] Work Phone: Start: 07-05-2024 End: 07-05-2024 ambulatory Pepe Ruiz Facility:[facility] Start: 06-22-2024 End: 06-22-2024 Dr. Yee Rowland MD -[facility] Work Phone: Start: 06-22-2024 End: 06-22-2024 ambulatory [facility] Facility:[facility] Start: 06-07-2024 End: 06-07-2024 Dr. Mayda Garcia MD -Outpatient Breast Imaging Work Phone: Start: 06-07-2024 End: 06-07-2024 ambulatory [facility] Facility:[facility] Start: 05-20-2024 End: 05-20-2024 Dr. Mayda Garcia MD -[facility] Work Phone: Start: 05-20-2024 End: 05-20-2024 ambulatory [facility] Facility:[facility] Start: 05-16-2024 End: 05-16-2024 [facility] Start: 05-16-2024 End: 05-16-2024 Dr. Pepe Ruiz MD -[facility] Work Phone: Start: 05-16-2024 End: 05-16-2024 ambulatory [facility] Facility:[facility] Start: 05-16-2024 End: 05-16-2024 ambulatory [facility] Facility:[facility] Start: 04-25-2024 ambulatory Vanita Venegas STOCK BLENDER Fac ility:[facility] Start: 04-25-2024 Dr. Russell Jang DO -[facility] Start: 04-21-2024 End: 04-21-2024 Dr. Pepe Ruiz MD -[facility] Work Phone: Start: 04-21-2024 End: 04-21-2024 ambulatory [facility] Facility:[facility] Start: 04-20-2024 End: 04-20-2024 Vanita Venegas STOCK BLENDER-C -Pulmonary Services/Neurology Work Phone: Start: 04-19-2024 End: 04-19-2024 Dr. Winston Johnson MD -[facility] Work Phone: Start: 04-19-2024 End: 04-20-2024 ambulatory Vanita Venegas STOCK BLENDER Facility:[facility] Start: 04-04-2024 ambulatory Vanita Venegas STOCK BLENDER Fac ility:[facility] Start: 02-19-2024 End: 02-19-2024 ambulatory Janee Dumontpatricia Facility:[facility] Start: 02-19-2024 End: 02-19-2024 ambulatory Janeevinny Millsosman Facility:[facility] Start: 02-14-2024 End: 02-14-2024 Emergency department patient visit Ulisses Rocio Facility:[facility] Start: 01-19-2024 End: 01-19-2024 ambulatory Mayda Espinozae Facility:[facility] Start: 01-05-2024 End: 01-05-2024 ambulatory Pepe Ruiz Facility:[facility] Start: 12-23-2023 End: 12-23-2023 ambulatory Efewrosemary Espinozae Facility:[facility] Start: 12-21-2023 ambulatory Mynor Miller Facility:[facility] Start: 12-16-2023 End: 12-17-2023 ambulatory Vanita Venegas STOCK BLENDER Facility:[facility] Start: 12-07-2023 End: 12-07-2023 ambulatory Vanita Venegas STOCK BLENDER Facility:[facility] Start: 12-02-2023 End: 12-02-2023 ambulatory Mynor Miller Facility:[facility] Start: 12-02-2023 End: 12-02-2023 ambulatory Yee Rowland Facility:[facility] Start: 11-16-2023 ambulatory Mayda Garcia Facili ty:[facility] Start: 11-16-2023 ambulatory Maurilio Bradford Facility:[facility] Start: 11-15-2023 End: 11-18-2023 ambulatory Maurilio Bradford Facility:[facility] Start: 09-07-2023 End: 09-07-[address] Mayda Garcia Work Phone: [facility] Work Phone: Start: 09-07-2023 End: 09-07-[address] Mayda Garcia Work Phone: [facility] Work Phone: Start: 08-19-2023 End: 08-19-[address] Mayda Garcia Work Phone: [facility] Work Phone: Start: 08-19-2023 End: 09-01-[address] Mayda Garcia Work Phone: [facility] Work Phone: Start: 08-19-2023 End: 09-01-[address] Mayda Garcia Work Phone: [facility]-Cardiac Rehab Work Phone: Start: 08-19-[address] Susan Garcia Work Phone: [facility]-Cardiac Rehab Work Phone: Start: 08-14-2023 End: 08-14-[address] Mayda Garcia Work Phone: [facility] Work Phone: Start: 08-14-2023 End: 08-14-[address] Mayda Garcia Work Phone: [facility]-Cat Scan, [facility] Work Phone: Start: 08-10-2023 End: 08-10-[address] Mayda Garcia Work Phone: [facility] Work Phone: Start: 08-10-2023 End: 08-10-[address] Mayda Garcia Work Phone: [facility]-Nuclear Medicine, [facility] Work Phone: Start: 08-10-[address] Susan Garcia Work Phone: [facility]-Cardiac Rehab Work Phone: Start: 07-31-2023 End: 08-02-[address] Mayda Garcia Work Phone: [facility] Work Phone: Start: 07-31-2023 End: 08-02-[address] Mayda Garcia Work Phone: [facility]-Cardiac Rehab Work Phone: Start: 07-30-2023 End: 07-30-[address] Mayda Garcia Work Phone: [facility] Work Phone: Start: 07-27-[address] Susan Garcia Work Phone: [facility]-Cardiac Rehab Work Phone: Start: 07-23-2023 End: 07-23-[address] Mayda Garcia Work Phone: [facility] Work Phone: Start: 07-21-2023 End: 07-21-[address] Mayda Garcia Work Phone: [facility] Work Phone: Start: 07-21-2023 End: 07-21-[address] Mayda Garcia Work Phone: [facility]-Sleep Lab Work Phone: Start: 07-21-2023 End: 07-21-[address] Mayda Garcia Work Phone: [facility] Work Phone: Start: 07-21-2023 End: 07-21-[address] Mayda Garcia Work Phone: [facility]-Outpatient Bone Densitometry Work Phone: Start: 07-20-2023 End: 07-20-[address] Mayda aGrcia Work Phone: [facility] Work Phone: Start: 07-01-2023 End: 07-02-[address] Mayda Garcia Work Phone: [facility] Work Phone: Start: 07-01-2023 End: 07-02-[address] Mayda Garcia Work Phone: [facility]-Cardiac Rehab Work Phone: Start: 07-01-[address] Susan Garcia Work Phone: [facility]-Cardiac Rehab Work Phone: Start: 06-25-2023 End: 06-25-[address] Mayda Garcia Work Phone: [facility] Work Phone: Start: 06-25-2023 End: 06-25-[address] Mayda Garcia Work Phone: [facility]-Sleep Lab Work Phone: Start: 06-22-[address] Susan Garcia Work Phone: [facility]-Cardiac Rehab Work Phone: Start: 06-17-2023 End: 06-17-[address] Mayda Garcia Work Phone: [facility] Work Phone: Start: 06-17-2023 End: 06-17-[address] Mayda Garcia Work Phone: [facility] Work Phone: Start: 06-10-2023 End: 06-10-[address] Mayda Garcia Work Phone: [facility]-Pulmonary Medicine [facility] Work Phone: Start: 06-01-2023 End: 06-01-[address] Mayda Garcia Work Phone: [facility] Work Phone: Start: 06-01-2023 End: 06-01-[address] Mayda Garcia Work Phone: [facility]-Cardiac Rehab Work Phone: Start: 05-25-2023 End: 05-25-[address] Mayda Garcia Work Phone: [facility] Work Phone: Start: 05-25-2023 End: 05-25-[address] Mayda Garcia Work Phone: [facility]-Outpatient Breast Imaging Work Phone: Start: 05-20-2023 End: 05-20-[address] Mayda Garcia Work Phone: [facility] Work Phone: Start: 05-18-2023 End: 05-18-[address] Mayda Garcia Work Phone: [facility] Work Phone: Start: 04-16-2023 End: 04-16-[address] Mayda Garcia Work Phone: [facility] Work Phone: Start: 04-08-2023 Non-patient / Non-visit Dr. Jia Garcia Work Phone: [facility] Start: 03-30-2023 End: 03-30-[address] Mayda Garcia Work Phone: [facility] Work Phone: Start: 03-30-2023 End: 03-30-[address] Mayda Garcia Work Phone: [facility] Work Phone: Start: 03-30-2023 End: 03-30-2023 Dr. Mayda Garcia Work Phone: [facility] Work Phone: Start: 03-19-2023 End: 03-19-[address] Mayda Garcia Work Phone: [facility] Work Phone: Start: 03-19-2023 End: 03-19-2023 Dr. Mayda Garcia Work Phone: [facility] Work Phone: Start: 03-16-2023 End: 03-16-[address] Mayda Garcia Work Phone: [facility] Work Phone: Start: 03-16-2023 End: 03-16-2023 Dr. Mayda Garcia Work Phone: [facility] Work Phone: Start: 02-18-2023 End: 02-18-[address] Mayda Garcia Work Phone: [facility] Work Phone: Start: 02-18-2023 End: 02-18-[address] Mayda Garcia Work Phone: [facility] Work Phone: Start: 02-18-2023 End: 02-18-2023 Dr. [facility] Work Phone: Start: 02-18-2023 End: 02-18-[address] Mayda Garcia Work Phone: [facility] Work Phone: Start: 02-18-2023 End: 02-18-2023 Dr. Mayda Garcia Work Phone: [facility] Work Phone: Start: 02-11-2023 End: 02-11-[address] Mayda Garcia Work Phone: [facility] Work Phone: Start: 02-11-2023 End: 02-11-2023 Dr. Mayda Garcia Work Phone: [facility] Work Phone: Start: 02-04-2023 End: 02-04-[address] [facility] [place] Start: 02-04-2023 End: 02-04-2023 Dr. Mayda Garcia Work Phone: [facility] [place] Start: 02-04-2023 End: 02-04-[address] Mayda Garcia Work Phone: [facility] Work Phone: Start: 02-04-2023 End: 02-04-2023 Dr. Mayda Garcia Work Phone: [facility] Work Phone: Start: 01-27-2023 End: 01-27-2023 Postop follow up visit related to original px Kassy Ken CNP Work Phone: [facility] Comment on above: S/P CABG (coronary a rtery bypass graft) (Primary Dx) Start: 01-11-2023 End: 01-26-2023 Evaluation and management of inpatient Dr. Mayda Garcia Work Phone: [facility] Start: 01-11-2023 End: 01-26-2023 Dr. Mayda Garcia Work Phone: [facility] Start: 01-01-2023 Evaluation and management of inpatient [facility] Start: 01-01-2023 End: 01-11-2023 Evaluation and management of inpatient Azam Rose MD Work Phone: [facility] Comment on above: S/P CABG (coronary a rtery bypass graft) (Primary Dx); CAD in [place] artery; Coronary artery disease involving coronary bypass graft, unspecified whether angina present, unspecified whether [place] or transplanted heart Start: 12-29-2022 End: 12-29-2022 Encounter for other preprocedural examination [facility] Start: 12-29-2022 End: 12-30-2022 ambulatory [facility] Start: 12-29-2022 End: 12-29-2022 Preoperative state Azam Rose MD Work Phone: [facility] Work Phone: Start: 12-29-2022 End: 12-29-2022 Subsequent hospital visit by physician Azam Rose MD Work Phone: [facility] Comment on above: Preoperative clearan ce Start: 12-24-2022 Admission to [facility] Kassy Ken CNP Work Phone: [facility] Comment on above: CAD in [place] artery (Primary Dx); Preoperative clearance Start: 12-24-2022 ambulatory Kassy Ken CNP Work Phone: [facility] Start: 12-24-2022 Preoperative state Kassy Dennis er POLLUTION CONTROL CHEMIST - COILED TUBING OPERATOR Work Phone: [facility] Work Phone: Start: 12-23-2022 Telephone encounter Azam fenton MD Work Phone: [facility] Comment on above: Surgery Scheduling Start: 12-23-2022 End: 12-23-2022 ambulatory AZAM ROSE [facility] Start: 12-23-2022 End: 12-23-2022 Office outpatient new 60 minutes Azam Rose MD Work Phone: [facility] Comment on above: 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 Jia Garcia Work Phone: [facility] Work Phone: Start: 12-19-2022 Dr. Mayda Garcia Work Phone: [facility] Work Phone: Start: 12-19-2022 Non-patient / Non-visit Dr. Jia Garcia Work Phone: [facility] Start: 12-19-2022 Dr. Mayda Garcia Work Phone: [facility] Start: 12-18-2022 Non-patient / Non-visit Dr. Jia Garcia Work Phone: [facility] Work Phone: Start: 12-18-2022 Dr. Mayda Garcia Work Phone: [facility] Work Phone: Start: 12-18-2022 End: 12-19-2022 Evaluation and management of inpatient Dr. Mayda Garcia Work Phone: [facility] Work Phone: Start: 12-18-2022 End: 12-19-[address] Mayda Garcia Work Phone: [facility] Work Phone: Start: 12-18-2022 End: 12-19-2022 Dr. Mayda Garcia Work Phone: [facility] Work Phone: Start: 12-18-2022 Evaluation and management of inpatient Dr. Mayda Garcia Work Phone: [facility] Work Phone: Start: 12-16-2022 End: 12-16-[address] Mayda Garcia Work Phone: [facility] Work Phone: Start: 12-16-2022 End: 12-16-[address] Mayda Garcia Work Phone: [facility] Work Phone: Start: 12-16-2022 End: 12-16-2022 Dr. Mayda Garcia Work Phone: [facility] Work Phone: Start: 12-11-2022 End: 12-11-[address] Mayda Garcia Work Phone: [facility] Work Phone: Start: 12-11-2022 End: 12-11-2022 Dr. Mayda Garcia Work Phone: [facility] Work Phone: Start: 11-19-2022 End: 11-19-[address] Mayda Garcia Work Phone: [facility] Work Phone: Start: 11-19-2022 End: 11-19-2022 Dr. Mayda Garcia Work Phone: [facility] Work Phone: Start: 10-10-2022 End: 10-10-[address] Mayda Garcia Work Phone: [facility] Work Phone: Start: 10-03-2022 End: 10-03-[address] Mayda Garcia Work Phone: [facility] Work Phone: Start: 10-03-2022 End: 10-03-[address] Mayda Garcia Work Phone: [facility] Start: 10-03-2022 End: 10-03-[address] Mayda Garcia Work Phone: [facility] Start: 10-02-2022 End: 10-02-[address] Mayda Garcia Work Phone: [facility] Start: 10-01-2022 End: 10-01-[address] Mayda Garcia Work Phone: [facility] Work Phone: Start: 10-01-2022 End: 10-01-[address] Mayda Garcia Work Phone: [facility] [place] Start: 08-22-2022 End: 08-22-[address] Mayda Garcia Work Phone: [facility] Start: 08-13-2022 End: 08-14-2022 Emergency department patient [facility] Start: 07-16-2022 End: 07-16-[address] Mayda Garcia Work Phone: [facility] Start: 06-30-2022 End: 06-30-[address] Mayda Garcia Work Phone: [facility] Start: 06-09-2022 End: 06-09-[address] Mayda Garcia Work Phone: [facility] Start: 06-07-2022 End: 06-07-2022 Emergency department patient [facility] Start: 06-06-2022 End: 06-06-2022 Emergency department patient [facility]da [facility] Start: 05-06-2022 End: 05-06-[address] Mayda Garcia Work Phone: [facility] Work Phone: Start: 05-06-2022 End: 05-06-[address] Mayda Garcia Work Phone: [facility] Start: 04-02-2022 End: 04-02-[address] Mayda Garcia Work Phone: [facility] Start: 03-29-2022 End: 03-29-2022 Emergency department patient [facility] Start: 03-14-2022 End: 03-14-2022 Emergency department patient visit Dr. Mayda Garcia Work Phone: [facility]-Emergency Department Start: 03-10-2022 End: 03-10-[address] Mayda Garcia Work Phone: [facility]-Pulmonary Medicine [facility] Start: 02-21-2022 End: 02-21-[address] Mayda Garcia Work Phone: [facility] Work Phone: Start: 02-21-2022 End: 02-21-[address] Mayda Garcia Work Phone: [facility]-Physical Therapy Start: 01-14-2022 End: 01-14-[address] Mayda Garcia Work Phone: [facility] Start: 01-10-2022 End: 01-10-[address] Mayda Garcia Work Phone: [facility] Work Phone: Start: 01-10-2022 End: 01-10-[address] Mayda Garcia Work Phone: [facility] Start: 01-03-2022 Non-patient / Non-visit Dr. Jia Garcia Work Phone: [facility] Start: 01-03-2022 Non-patient / Non-visit Dr. Jia Garcia Work Phone: [facility] Start: 01-02-2022 Non-patient / Non-visit Dr. Jia Garcia Work Phone: [facility] Start: 01-02-2022 End: 01-03-2022 Evaluation and management of inpatient Dr. Mayda Garcia Work Phone: [facility]-Progressive Care Unit Start: 01-02-2022 End: 01-03-[address] Mayda Garcia Work Phone: [facility] Work Phone: Start: 01-02-2022 Non-patient / Non-visit Dr. Jia Garcia Work Phone: [facility] Start: 12-23-2021 End: 12-23-[address] Mayda Garcia Work Phone: [facility] Start: 12-17-2021 End: 12-17-2021 Emergency department patient visit Dr. Mayda Garcia Work Phone: [facility]-Emergency Department Start: 12-12-2021 End: 12-12-[address] Mayda Lozano Phone: [facility]-Outpatient Breast Imaging Start: 11-29-2021 Non-patient / Non-visit Dr. Jia Garcia Work Phone: [facility] Start: 11-29-2021 End: 11-29-[address] Mayda Lozano Phone: [facility]-Cardiovascular Services Start: 11-28-2021 End: 11-28-2021 Emergency department patient visit Dr. Mayda Garcia Work Phone: [facility]-Emergency Department Start: 11-06-[address] Mayda Garcia Work Phone: [facility] Start: 11-06-2021 End: 11-06-2021 Encounter for general adult medical examination without abnormal findings Dr. Mayda Garcia Work Phone: [facility] Start: 11-06-2021 End: 11-06-[address] Mayda Garcia Work Phone: [facility] Start: 11-05-2021 End: 11-05-[address] Mayda Lozano Phone: [facility]-Pulmonary Medicine [facility] Start: 10-25-2021 End: 10-25-2021 Emergency department patient visit Dr. Mayda Lozano Phone: [facility]-Emergency Department Start: 10-17-2021 End: 10-17-[address] Mayda Garcia Work Phone: [facility] Start: 07-18-2021 End: 07-18-[address] Mayda Lozano Phone: [facility]-Physical Therapy Start: 07-16-2021 End: 07-16-[address] Mayda Lozano Phone: [facility] Start: 07-10-2021 End: 07-10-[address] Mayda Lozano Phone: [facility] Start: 10-02-[address] Mayda Lozano Phone: [facility] Start: 02-25-2018 End: 03-01-2018 Patient encounter procedure TILA (PT) JENELLE [facility] Start: 02-22-2018 End: 02-22-2018 Patient encounter procedure JOSSUE FINLEY [facility] Start: 02-18-2018 End: 02-22-2018 Patient encounter procedure TILA (PT) JENELLE [facility] Start: 02-11-2018 End: 02-12-2018 Patient encounter procedure TILA (PT) JENELLE [facility] Start: 02-09-2018 [facility] CHRIS YAO [facility] Start: 02-04-2018 End: 02-04-2018 Patient encounter procedure TILA (PT) JENELLE [facility] Start: 02-02-2018 End: 02-03-2018 Patient encounter procedure TILA (PT) [facility] Start: 01-28-2018 End: 02-01-2018 Patient encounter procedure TILA (PT) [facility] Start: 01-26-2018 End: 01-27-2018 Patient encounter procedure TILA (PT) [facility] Start: 01-21-2018 End: 01-25-2018 Patient encounter procedure TILA (PT) [facility] Start: 01-14-2018 Patient encounter procedure TILA (PT) [facility] Start: 01-12-2018 End: 01-13-2018 Patient encounter procedure TILA (PT) [facility] Start: 01-11-2018 End: 01-11-2018 Patient encounter procedure MYNOR FLORES [facility] Start: 01-07-2018 End: 01-08-2018 Patient encounter procedure TILA (PT) [facility] Start: 01-05-2018 End: 01-06-2018 Patient encounter procedure TILA (PT) [facility] Start: 12-17-2017 End: 12-17-2017 Patient encounter procedure MYNOR FLORES [facility] Start: 12-09-2017 End: 12-09-2017 Patient encounter procedure MYNOR FLORES [facility] Start: 10-15-2017 End: 10-16-2017 Patient encounter procedure JOSSUE FINLEY [facility] Start: 10-14-2017 End: 10-14-2017 Patient encounter procedure JOSSUE FINLEY [facility] Start: 07-20-2017 End: 07-20-2017 Patient encounter procedure GLEN (TOOL AND DIE MAKER) [facility] Start: 02-09-2017 End: 02-09-2017 Ambulatory CHRIS Chandana YAO [facility] Procedures Date Procedure Procedure Detail Performing [...] Mayda Garcia MD Work Phone: Start: 09-22-2024 MITTEN SEWER antibody measurement Dr. Mayda alanis MD Work [...] exam chest single view Shruthi Neumann Carmella POLLUTION CONTROL CHEMIST - COILED TUBING OPERATOR Work Phone: Start: 01-07-2023 Glucose quantitative blood xcpt reagent strip Azam Rose MD Work Phone: Start: 01-07-2023 Glucose quantitative blood xcpt reagent strip Azam Rose MD Work Phone: Start: 01-07-2023 Glucose quantitative blood xcpt reagent strip Azam Rose MD Work Phone: Start: 01-07-2023 Radiologic exam chest single view Shruthi Neumann Carmella POLLUTION CONTROL CHEMIST - COILED TUBING OPERATOR Work Phone: Start: 01-07-2023 Basic metabolic panel calcium total Shruthi Neumann Carmella POLLUTION CONTROL CHEMIST - COILED TUBING OPERATOR Work Phone: Start: 01-06-2023 Glucose quantitative blood xcpt reagent strip Azam Rose MD Work Phone: Start: 01-06-2023 Glucose quantitative blood xcpt reagent strip Azam Rose MD Work Phone: Start: 01-06-2023 Glucose quantitative blood xcpt reagent strip Azam Rose MD Work Phone: Start: 01-06-2023 Radiologic exam chest single view Shruthi Neumann Carmella POLLUTION CONTROL CHEMIST - COILED TUBING OPERATOR Work Phone: Start: 01-06-2023 Basic metabolic panel calcium total Shruthi Plunkettke POLLUTION CONTROL CHEMIST - COILED TUBING OPERATOR Work Phone: Start: 01-05-2023 Glucose quantitative blood xcpt reagent strip Azam Rose MD Work Phone: Start: 01-05-2023 Glucose quantitative blood xcpt reagent strip Azam Rose MD Work Phone: Start: 01-05-2023 Radiologic exam chest single view Shruthi Weaver POLLUTION CONTROL CHEMIST - COILED TUBING OPERATOR Work Phone: Start: 01-05-2023 Compatibility each unit electronic Remington Hopkins MD Work Phone: Start: 01-05-2023 Basic metabolic panel calcium total Shruthi Weaver POLLUTION CONTROL CHEMIST - COILED TUBING OPERATOR Work Phone: Start: 01-04-2023 Glucose quantitative blood xcpt reagent strip Azam Rose MD Work Phone: Start: 01-04-2023 Glucose quantitative blood xcpt reagent strip Azam Rose MD Work Phone: Start: 01-04-2023 Radiologic exam chest single view Shruthi Weaver POLLUTION CONTROL CHEMIST - COILED TUBING OPERATOR Work Phone: Start: 01-04-2023 End: 01-04-2023 Basic metabolic panel calcium total Shruthi Weaver POLLUTION CONTROL CHEMIST - COILED TUBING OPERATOR Work Phone: Start: 01-03-2023 Glucose quantitative blood xcpt reagent strip Azam Rose MD Work Phone: Start: 01-03-2023 Glucose quantitative blood xcpt reagent strip Azam Rose MD Work Phone: Start: 01-03-2023 Glucose quantitative blood xcpt reagent strip Azam Rose MD Work Phone: Start: 01-03-2023 Radiologic exam chest single view Shruthi Plunkettmamisumit POLLUTION CONTROL CHEMIST - COILED TUBING OPERATOR Work Phone: Start: 01-03-2023 Basic metabolic panel calcium total Shruthi Weaver POLLUTION CONTROL CHEMIST - COILED TUBING OPERATOR Work Phone: Start: 01-02-2023 Glucose quantitative blood xcpt reagent strip Azam Rose MD Work Phone: Start: 01-02-2023 Glucose quantitative blood xcpt reagent strip Azam Rose MD Work Phone: Start: 01-02-2023 End: 01-02-2023 Basic metabolic panel calcium total Chandler Ram POLLUTION CONTROL CHEMIST - COILED TUBING OPERATOR Work Phone: Start: 01-02-2023 Glucose quantitative blood xcpt reagent strip Azam Rose MD Work Phone: Start: 01-02-2023 Glucose quantitative blood xcpt reagent strip Azam Rose MD Work Phone: Start: 01-02-2023 Radiologic exam chest single view Shruthi Nel Weaver POLLUTION CONTROL CHEMIST - COILED TUBING OPERATOR Work Phone: Start: 01-02-2023 Ecg routine ecg w/least 12 lds trcg only w/o i&r Shruthi Neumann Carmella POLLUTION CONTROL CHEMIST - COILED TUBING OPERATOR Work Phone: Start: 01-02-2023 End: 01-02-2023 Glucose quantitative blood xcpt reagent strip Azam Rose MD Work Phone: Start: 01-02-2023 End: 01-02-2023 Glucose quantitative blood xcpt reagent strip Azam Rose MD Work Phone: Start: 01-02-2023 Glucose quantitative blood xcpt reagent strip Azam Rose MD Work Phone: Start: 01-02-2023 End: 01-02-2023 Basic metabolic panel calcium total Shruthi Nel Weaver POLLUTION CONTROL CHEMIST - COILED TUBING OPERATOR Work Phone: Start: 01-01-2023 Glucose quantitative blood [...] hematocrit Mynor R Dionna A PRN - COILED TUBING OPERATOR Work Phone: Start: 01-01-2023 Compatibility each unit electronic Mynor R Dionna POLLUTION CONTROL CHEMIST - COILED TUBING OPERATOR Work Phone: Start: 01-01-2023 End: 01-01-2023 TRANSFUSE RED BLOOD CELLS Mynor galindo [facility] Work Phone: Start: 01-01-2023 Radiologic exam chest single view Mynor Villareal POLLUTION CONTROL CHEMIST - [facility] Work Phone: Start: 01-01-2023 End: 01-01-2023 Blood count complete automated Mynor Villareal [facility] Work Phone: Start: 01-01-2023 Echo transesophag r-t 2d w/prb img acquisj i&r Azam Rose MD Work Phone: Start: 01-01-2023 Ecg routine ecg w/least 12 lds trcg only w/o i&r Shruthi Weaver [facility] Work Phone: Start: 01-01-2023 End: 01-01-2023 Glucose [...] (coronary artery bypass graft) Kassy Tabares APRN [facility] Work Phone: History of coronary artery bypass [...] Detail Author Start: 05-22-2025 Cytoplasmic ANCA Screen [facility] Start: 09-21-2024 Patient referral [facility] Work Phone: Start: 09-16-2024 [facility] Start: 07-15-2024 [facility] Start: 07-14-2024 [facility] Start: 07-14-2024 [facility] Start: 05-20-2024 Patient referral [facility] Work Phone: Start: 01-08-2024 Creatinine measurement Creatinine Level [facility] Start: 01-08-2024 Potassium measurement Potassium Level [facility] Start: 01-02-2024 Echocardiography Echocardiogram [facility] Start: 12-30-2023 Hemoglobin A1c measurement Diabetes: Hemoglobin A1C [facility] Start: 07-23-2023 Patient referral [facility] Work Phone: Start: 06-17-2023 Patient referral [facility] Work Phone: Start: 06-01-2023 Patient referral to dietitian [facility] Start: 05-20-2023 Patient referral [facility] Work Phone: Start: 03-19-2023 Patient referral [facility] Work Phone: Start: 02-23-2023 Blood chemistry [facility] Start: 02-16-2023 Blood chemistry [facility] Start: 02-09-2023 Blood chemistry [facility] Start: 02-02-2023 Blood chemistry [facility] Start: 01-28-2023 Development of care plan [facility] Start: 01-26-2023 Patient discharge [facility] Start: 01-22-2023 Referral to service [facility] Start: 01-22-2023 Continuous positive airway pressure ventilation treatment [facility] Start: 01-21-2023 Following clinical pathway protocol [facility] Start: 01-21-2023 [facility] Start: 01-19-2023 End: 01-19-2023 Patient encounter procedure 01/19/2023 11:30 AM EDT Office Visit [facility] [address] [place] [id number] Kassy Tabares, GORDO - COILED TUBING OPERATOR [address] [place] [address] [facility] Start: 01-14-2023 End: 01-14-2023 Speech therapy management [facility] Start: 01-13-2023 Speech therapy assessment [facility] Start: 01-12-2023 [facility] Start: 01-12-2023 Development of care plan [facility] Start: 01-12-2023 Developing a treatment plan [facility] Start: 01-11-2023 Seizure precautions [facility] Start: 01-11-2023 Provision of activity privileges [facility] Start: 01-11-2023 Recommendation to continue with treatment [facility] Start: 01-11-2023 Wound care [facility] Start: 01-11-2023 Admission procedure [facility] Start: 01-11-2023 Measuring intake and output [facility] Start: 01-11-2023 Patient referral to dietitian [facility] Start: 01-11-2023 Referral to occupational therapist [facility] Start: 01-11-2023 Referral to service [facility] Start: 01-11-2023 Vital signs measurements [facility] Start: 01-11-2023 End: 01-11-2023 [facility] Start: 01-02-2023 Influenza vaccination Influenza Vaccine (#1) [facility] Start: 01-01-2023 End: 01-01-2023 Admission to same day surgery center 01/01/2023 7:30 AM EDT - 01/01/2023 12:30 PM EDT Surgery [facility] [place] [address] [place] [id number] Azam Rose MD [address] [facility], [address] [place] [address] CABG AND SIS [41085 (CPT )] [facility] Comment on above: CABG AND SIS [41432 (CPT )] Start: 01-01-2023 End: 01-01-2023 Anesthesia consultation 01/01/2023 7:30 AM EDT Anesthesia Event [facility] OR [address] [place] [id number] Adilia Carson, RENE [address] [place] [address] [facility] Start: 01-01-2023 End: 01-01-2023 Cabg w/arterial graft three arterial grafts CABG X3 ARTERIAL GRAFTS Atherosclerotic heart disease of [place] coronary artery without angina pectoris 01/01/2023 7:30 AM EDT [facility] Operating Room Start: 01-01-2023 End: 01-01-2023 Echo transesophag r-t 2d w/prb img acquisj i&r Echocardiography transesophageal real-time Atherosclerotic heart disease of [place] coronary artery without angina pectoris 01/01/2023 7:30 AM EDT [facility] Operating Room Start: 01-01-2023 Subsequent hospital visit by physician 01/01/2023 7:30 AM EDT Hospital Encounter [facility] [address] [facility] [place] [address] Azam Rose MD [address] [place] [address], [address] [place] [address] [facility] MAIN OR Start: 12-26-2022 End: 12-26-2022 Admission to establishment 12/26/2022 1:00 PM EDT Pre-Admission Testing [facility] Pre-Admit Testing [address] [facility] [place] [address] [facility] Pre-Admit Testing Start: 12-24-2022 End: 02-23-2023 Basic metabolic 1998 panel - Serum or Plasma Basic metabolic panel Lab Routine Preoperative clearance Expected: 12/24/2022, Expires: 02/23/2023 [facility] Work Phone: Comment on above: Expected: 12/24/2022, Expires: Start: 12-24-2022 End: 02-23-2023 Blood type and Crossmatch panel - Blood Type and Screen Lab Routine Preoperative clearance Expected: 12/24/2022, Expires: 02/23/2023 [facility] Comment on above: Expected: 12/24/2022, Expires: Start: 12-24-2022 End: 02-23-2023 CBC panel - Blood by Automated count CBC Lab Routine Preoperative clearance Expected: 12/24/2022, Expires: 02/23/2023 [facility] Comment on above: Expected: 12/24/2022, Expires: 3 Start: 12-24-2022 End: 02-23-2023 ECG 12 lead ECG 12 lead CV ECG Routine Preoperative clearance Expected: 12/24/2022, Expires: 02/23/2023 [facility] Comment on above: Expected: 12/24/2022, Expires: 3 Start: 12-24-2022 End: 02-23-2023 Hemoglobin A1c/Hemoglobin.total in Blood Hemoglobin A1c Lab Routine Preoperative clearance Expected: 12/24/2022, Expires: 02/23/2023 [facility] Comment on above: Expected: 12/24/2022, Expires: Start: 12-24-2022 End: 02-23-2023 Prepare RBC: 2 Units Prepare RBC: 2 Units Blood Bank Routine Preoperative clearance Expected: 12/24/2022, Expires: 02/23/2023 [facility] Comment on above: Expected: 12/24/2022, Expires: 3 Start: 12-24-2022 End: 02-23-2023 XR Chest 2 Views XR chest 2 views Imaging Routine Preoperative clearance Expected: 12/24/2022, Expires: 02/23/2023 [facility] Comment on above: Expected: 12/24/2022, Expires: 3 Start: 12-19-2022 Patient discharge [facility] Start: 12-19-2022 Patient referral [facility] Work Phone: Start: 12-18-2022 Referral to information technology coordinator [facility] Start: 12-18-2022 Ambulation without limitation [facility] Start: 12-18-2022 Assessment of risk of venous thromboembolism [facility] Start: 12-18-2022 Insertion of catheter into peripheral vein [facility] Start: 12-18-2022 Oxygen therapy [facility] Start: 12-18-2022 Providing care according to standard [facility] Start: 12-18-2022 Admission procedure [facility] Start: 12-18-2022 Following clinical pathway protocol [facility] Start: 12-18-2022 End: 12-18-2022 [facility] Start: 12-12-2022 Screening for malignant neoplasm of breast Mammogram [facility] Start: 06-07-2022 Incentive spirometry [facility] Start: 06-07-2022 [facility] Start: 06-06-2022 Seizure precautions [facility] Start: 03-14-2022 Seizure precautions [facility] Start: 01-10-2022 Patient referral [facility] Work Phone: Start: 01-03-2022 Patient discharge [facility] Work Phone: Start: 01-02-2022 Care regimes management [facility] Work Phone: Start: 01-02-2022 Notification of physician [facility] Work Phone: Start: 01-02-2022 [facility] Work Phone: Start: 01-02-2022 Following clinical pathway protocol [facility] Work Phone: Start: 01-02-2022 Assessment of risk of venous thromboembolism [facility] Work Phone: Start: 01-02-2022 Catheterization of vein [facility] Work Phone: Start: 01-02-2022 Insertion of catheter into peripheral vein [facility] Work Phone: Start: 01-02-2022 Measuring intake and output [facility] Work Phone: Start: 01-02-2022 Providing care according to standard [facility] Work Phone: Start: 01-02-2022 Provision of activity privileges [facility] Work Phone: Start: 01-02-2022 [facility] Work Phone: Start: 01-02-2022 Admission procedure [facility] Work Phone: Start: 11-28-2021 US.doppler Lower extremity vein [facility] Work Phone: Start: 10-25-2021 [facility] Work Phone: Start: 07-19-2021 COVID-19 Vaccine (4 - Booster for Moderna series) COVID-19 Vaccine (4 - Booster for Moderna series) [facility] Start: 07-19-2021 COVID-19 Vaccine (4 - Moderna series) COVID-19 Vaccine (4 - Moderna series) [facility] Start: 01-17-2021 DTaP/Tdap/Td Vaccines (2 - Td or Tdap) DTaP/Tdap/Td Vaccines (2 - Td or Tdap) [facility] Start: 07-18-2011 Hepatitis B Vaccines (3 of 3 - 19+ 3-dose series) Hepatitis B Vaccines (3 of 3 - 19+ 3-dose series) [facility] Start: 07-18-2011 Hepatitis B Vaccines (3 of 3 - Risk 3-dose series) Hepatitis B Vaccines (3 of 3 - Risk 3-dose series) [facility] Start: 05-04-2007 Pneumococcal Vaccine: 65+ Years (2 - PCV) Pneumococcal Vaccine: 65+ Years (2 - PCV) [facility] Start: 2002 Zoster Vaccines (1 of 2) Zoster Vaccines (1 of 2) [facility] Start: 1970 Hepatitis C screening Hepatitis C Screening [facility] Start: 1964 Depression Screening Depression Screening [facility] Start: 1962 Diabetic foot examination Diabetes: Foot Exam [facility] Start: 1962 Glaucoma screening Diabetes: Retinopathy Screening [facility] Start: 1962 Preventive dental service Diabetes: Dental Exam [facility] Start: 1952 Hemoglobin A1c measurement Diabetes: Hemoglobin A1C [facility] Start: 1952 Lipid panel Lipid Panel [facility] Start: 1952 Medicare Advantage Annual Wellness Visit (AWV) Medicare Advantage Annual Wellness Visit (AWV) [facility] Start: 1952 Screening for malignant neoplasm of colon [facility] Start: 1952 Screening for osteoporosis Bone Density Scan [facility] Antibody to lupus [place] protein measurement [facility] Antibody to SS-A measurement [facility] Basic metabolic 2008 panel with ionized calcium - Serum or Plasma [facility] Blood ammonia measurement [facility] Work Phone: Blood ammonia measurement [facility] Blood ammonia measurement [facility] Blood chemistry [facility] C reactive protein [Mass/volume] in Serum or Plasma [facility] CBC W Auto Different ial panel - Blood [facility] Complete blood count [facility] Work Phone: Complete blood count [facility] Comprehensive metabo lic 2000 panel - Serum or Plasma [facility] CT Abdomen and Pelvi s W contrast IV [facility] Cytoplasmic ANCA Screen [facility] DNA double strand Ab [Units/volume] in Serum [facility] DXA Bone [Mass/Area] Bone density [facility] Erythrocyte sedimentation rate [facility] Folate [Mass/volume] in Serum or Plasma [facility] Hemoglobin A1c/Hemoglobin.total in Blood [facility] Hemoglobin A1c/Hemoglobin.total in Blood [facility] Hepatic function panel [facility] Lipid 1996 panel - S ronnell or Plasma [facility] MG Breast - bilatera l Screening [facility] Work Phone: Patient Education [facility] Work Phone: Patient referral [facility] Work Phone: Radionuclide gastric emptying study [facility] Rheumatoid factor [Presence] in Serum [facility] Streptococcus pyogen es antigen assay Group A Streptococcus Rapid Screen [facility] Work Phone: Thiamine measurement [facility] Thyroid stimulating hormone measurement [facility] Troponin T.cardiac [Mass/volume] in Serum or Plasma by High sensitivity method [facility] Valproate [Mass/volu me] in Serum or Plasma [facility] Viral nucleic acid assay [facility] Vitamin B12 measurement [facility] End: 12-29-2022 XR Chest 2 [facility] Work Phone: Comment on above: Once for 1 Occurrences starting 12/30/19 23 until 12/29/2022 XR Shoulder GE 2 Views [facility] Work Phone: [facility] Immunizations Immunization Date Immunization Notes Care Provider Farzana martinez 02-09-2024 RSV Adult BiValent (Abrysvo) Dr. Mayda Garcia MD Work Phone: [facility] 02-04-2023 influenza, injectabl e, quadrivalent, preservative free Dr. Mayda Garcia Work Phone: [facility] 01-14-2023 Pneumococcal Vaccine PCV20 (Prevnar 20) Dr. Mayda Garcia Work Phone: [facility] 03-10-2022 influenza, injectabl e, quadrivalent, preservative free Dr. Mayda Garcia Work Phone: [facility] 03-10-2022 influenza, seasonal, injectable Dr. Mayda Garcia Work Phone: [facility] 03-10-2022 influenza virus vaccine, unspecified formulation Azam Rose MD Work Phone: [facility] 05-24-2021 Covid (Moderna) Dr. Yaron Garcia Work Phone: [facility] 08-09-2020 Covid (Moderna) Dr. Yaron Garcia Work Phone: [facility] 07-11-2020 Covid (Moderna) Dr. Yaron Garcia Work Phone: [facility] 02-10-2020 influenza, injectabl e, quadrivalent, preservative free Dr. Mayda Garcia Work Phone: [facility] 02-10-2020 influenza, seasonal, injectable Dr. Mayda Garcia Work Phone: [facility] 02-10-2020 Seasonal, quadrivale nt, recombinant, injectable influenza vaccine, preservative free Dr. Mayda Garcia Work Phone: [facility] 02-10-[address] Mayda Garcia Work Phone: [facility] 03-21-2018 influenza, injectabl e, quadrivalent, preservative free Dr. Mayda Garcia Work Phone: [facility] 03-21-2018 influenza, seasonal, injectable Dr. Mayda Garcia Work Phone: [facility] 03-21-2018 Seasonal, quadrivale nt, recombinant, injectable influenza vaccine, preservative free Dr. Mayda Garcia Work Phone: [facility] 03-03-2016 influenza, injectabl e, quadrivalent, preservative free Dr. Mayda Garcia Work Phone: [facility] 04-11-2015 influenza, injectabl e, quadrivalent, preservative free Dr. Mayda Garcia Work Phone: [facility] Payers Date Payer Category Payer Self-pay [id number] 2021 Medicare AN[employer]M MEDICARE ADVANTAGE [facility] [id number] 2021-Present [address] [place] [address] Medicare HMO [id number] 2021 Unknown [id number] 2011 Medicare [id number] Medicare [id number] Medicare [id number] Unknown [id number] Unknown [id number] 2.16.840.1.368524.3.579.2.462 Unknown [id number] 2.16.840.1.005734.3.579.2.462 Unknown [id number] 2.16840.1.394781.3.579.2.462 Unknown [id number] 2.16840.1.796688.3.579.2.462 Unknown [id number] 2.840.1.522690.3.579.2.462 Unknown [id number] 2.16840.1.446196.3.579.2.462 Unknown [id number] 2.840.1.019343.3.579.2.462 Unknown [id number] 2.840.1.909240.3.579.2.462 Unknown [id number] 2.840.1.231437.3.579.2.462 Unknown [id number] 2.840.1.143188.3.579.2.462 Unknown [id number] 2.840.1.603539.3.579.2.462 Unknown [id number] 2.840.1.766471.3.579.2.462 Unknown [id number] 2.840.1.612322.3.579.2.462 Unknown [id number] 2.840.1.122620.3.579.2.462 Unknown [id number] 2.840.1.855931.3.579.2.462 Unknown [id number] 2.840.1.280491.3.579.2.462 Unknown [id number] 2.840.1.657027.3.579.2.462 Unknown [id number] 2.840.1.933275.3.579.2.462 Unknown [id number] 2.840.1.865858.3.579.2.462 Unknown [id number] 2.16840.1.726022.3.579.2.462 Unknown [id number] 2.840.1.300889.3.579.2.462 Unknown [id number] 2.16.840.1.175368.3.579.2.462 Unknown [id number] 2.16.840.1.705708.3.579.2.462 Unknown [id number] 2.840.1.378939.3.579.2.462 Unknown [id number] 2.840.1.542083.3.579.2.462 Unknown [id number] 2.840.1.651700.3.579.2.462 Unknown [id number] 2.840.1.535113.3.579.2.462 Unknown [id number] 2.840.1.094526.3.579.2.462 Unknown [id number] 2.840.1.068851.3.579.2.462 Unknown [id number] 2.840.1.516287.3.579.2.462 Unknown [id number] 2.840.1.279146.3.579.2.462 Unknown [id number] 2.840.1.954312.3.579.2.462 Unknown [id number] 2.840.1.398794.3.579.2.462 Unknown [id number] 2.840.1.923049.3.579.2.462 Unknown [id number] 2.840.1.206096.3.579.2.462 Unknown [id number] 2.840.1.668044.3.579.2.462 Unknown [id number] 2.840.1.192739.3.579.2.462 Unknown [id number] 2.840.1.613994.3.579.2.462 Unknown [id number] 2.16.840.1.879976.3.579.2.462 Unknown [id number] 2.16.840.1.717231.3.579.2.462 Unknown [id number] 2.16.840.1.674435.3.579.2.462 Unknown [id number] 2.16840.1.484272.3.579.2.462 Unknown [id number] 2.16.840.1.031249.3.579.2.462 Unknown [id number] 2.16.840.1.470244.3.579.2.462 Unknown [id number] 2.16.840.1.076123.3.579.2.462 Unknown [id number] 2.16840.1.239178.3.579.2.462 Unknown [id number] 2.840.1.456915.3.579.2.462 Social History Date Type Detail Facility Start: 10-25-2021 End: 08-19-2023 Tobacco smoking status IAIS Unknown if ever smoked [facility] Start: 09-26-2020 Rare [facility] Start: 09-26-2020 None [facility] Start: 09-26-2020 Alone [facility] Start: 09-26-2020 Non-smoker [facility] Start: 1950 Sex Assigned At Female W [facility] Start: 12-22-2022 End: 09-16-2024 Tobacco smoking status NHIS Never smoked tobacco [facility] Start: 12-22-2022 Tobacco use and exposure Smokeless tobacco non-user [facility] Start: 12-23-2022 Alcohol intake Lifetime non-d domenica (finding) [facility] Start: 12-22-2022 End: 01-19-2023 History of Social function [facility] Start: 12-22-2022 End: 01-19-2023 Tobacco use panel [facility] Start: 1950 Sex Assigned At Not on file [facility] Start: 12-13-2022 End: 01-19-2023 Exposure to SARS-CoV-2 (event) Not sure [facility] Start: 12-29-2022 End: 01-19-2023 Alcohol intake Current drinker of alcohol (finding) [facility] Start: 12-29-2022 Alcohol Comment once a year [facility] Within the last year , have you been afraid of your partner or ex-partner? No [facility] Start: 07-14-2024 End: 07-15-2024 Sex Female (finding) [facility] Procedure Code Equipment Code Equipment [...] Test Strip) strip Start: 02-07-2020 End: 07-17-2021 [facility] n lancets Start: 11-11-2019 End: 11-11-2019 Blood Sugar Diagnostic (True Metrix Glucose Test Strip) strip Start: 07-17-2021 Blood Sugar Diagnostic (True Metrix Glucose Test Strip) strip Start: 02-07-2020 End: 02-07-2020 Blood Sugar Diagnostic (True Metrix Glucose Test Strip) strip Start: 02-07-2020 End: 07-17-2021 [facility] n lancets Start: 11-11-2019 End: 11-11-2019 Blood Sugar Diagnostic (True Metrix Glucose Test Strip) strip Start: 07-17-2021 Blood Sugar Diagnostic (True Metrix Glucose Test Strip) strip Start: 02-07-2020 End: 02-07-2020 Blood Sugar Diagnostic (True Metrix Glucose Test Strip) strip Start: 02-07-2020 End: 07-17-2021 [facility] n lancets Start: 11-11-2019 End: 11-11-2019 Blood Sugar Diagnostic (True Metrix Glucose Test Strip) strip Start: 07-17-2021 Blood Sugar Diagnostic (True Metrix Glucose Test Strip) strip Start: 02-07-2020 End: 02-07-2020 Blood Sugar Diagnostic (True Metrix Glucose Test Strip) strip Start: 02-07-2020 End: 07-17-2021 [facility] n lancets Start: 11-11-2019 End: 11-11-2019 Blood Sugar Diagnostic (True Metrix Glucose Test Strip) strip Start: 07-17-2021 Blood Sugar Diagnostic (True Metrix Glucose Test Strip) strip Start: 02-07-2020 End: 02-07-2020 Blood Sugar Diagnostic (True Metrix Glucose Test Strip) strip Start: 02-07-2020 End: 07-17-2021 [facility] lancets Start: 11-11-2019 End: 11-11-2019 Blood Sugar Diagnostic (True Metrix Glucose Test Strip) strip Start: 07-17-2021 Blood Sugar Diagnostic (True Metrix Glucose Test Strip) strip Start: 02-07-2020 End: 02-07-2020 Blood Sugar Diagnostic (True Metrix Glucose Test Strip) strip Start: 02-07-2020 End: 07-17-2021 [facility] thi n lancets Start: 11-11-2019 End: 11-11-2019 Blood Sugar Diagnostic (True Metrix Glucose Test Strip) strip Start: 07-17-2021 Lancets (Bd Ultr a Fine Lancets) 33 gauge misc Start: 04-02-2022 Blood Sugar Diagnostic (True Metrix Glucose Test Strip) strip Start: 02-07-2020 End: 02-07-2020 Blood Sugar Diagnostic (True Metrix Glucose Test Strip) strip Start: 02-07-2020 End: 07-17-2021 [facility] n lancets Start: 11-11-2019 End: 11-11-2019 Blood Sugar Diagnostic (True Metrix Glucose Test Strip) strip Start: 07-17-2021 Lancets (Bd Ultr a Fine Lancets) 33 gauge misc Start: 04-02-2022 Blood Sugar Diagnostic (True Metrix Glucose Test Strip) strip Start: 02-07-2020 End: 02-07-2020 Blood Sugar Diagnostic (True Metrix Glucose Test Strip) strip Start: 02-07-2020 End: [facility] Start: 11-11-2019 End: 11-11-2019 Blood Sugar Diagnostic (True Metrix Glucose Test Strip) strip Start: 07-17-2021 Lancets (Bd Ultr a Fine Lancets) 33 gauge misc Start: 04-02-2022 Blood Sugar Diagnostic (True Metrix Glucose Test Strip) strip Start: 02-07-2020 End: 02-07-2020 Blood Sugar Diagnostic (True Metrix Glucose Test Strip) strip Start: 02-07-2020 End: 07-17-2021 [facility] Start: 11-11-2019 End: 11-11-2019 Blood Sugar Diagnostic (True Metrix Glucose Test Strip) strip Start: 07-17-2021 Lancets (Bd Ultr a Fine Lancets) 33 gauge misc Start: 04-02-2022 Blood Sugar Diagnostic (True Metrix Glucose Test Strip) strip Start: 02-07-2020 End: 02-07-2020 Blood Sugar Diagnostic (True Metrix Glucose Test Strip) strip Start: 02-07-2020 End: 07-17-2021 [facility] n lancets Start: 11-11-2019 End: [...] Strip) strip Start: 02-07-2020 End: 07-17-2021 [facility] n lancets Start: 11-11-2019 End: 11-11-2019 Blood Sugar Diagnostic (True Metrix Glucose Test Strip) strip Start: 07-17-2021 Lancets (Bd Ultr a Fine Lancets) 33 gauge misc Start: 04-02-2022 Blood Sugar Diagnostic (True Metrix Glucose Test Strip) strip Start: 02-07-2020 End: 02-07-2020 Blood Sugar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 to avoid a fall. Performance Deficits/Impairments: Decreased functional mobility , Decreased endurance, Increased pain, Decreased ADL status, Decreased strength, Decreased posture, Decreased balance Patient Diagnosis(es): The primary encounter diagnosis was CAD in [place] artery. A diagnosis of Coronary artery disease involving coronary bypass graft, unspecified whether angina present, unspecified whether [place] or transplanted heart was also pertinent to this visit. has a past medical history of CHF (congestive heart failure) ([facility]) ([facility]), Diabetes mellitus ([facility]), GERD (gastroesophageal reflux disease), Hyperlipidemia, Hypertension, RA (rheumatoid arthritis) ([facility]), Seizure ([facility]), Seizures ([facility]), and Sleep apnea. has a past surgical [...] / Caregiver Present: No Diagnosis: CAD in [place] artery s/p CABG on 01/01 Follows Commands: [...] Code Treatment Minutes: 30 Minutes (FA, GT) OFFICE SYSTEMS TECHNOLOGY INSTRUCTOR wore PPE in compliance with hospital guidelines and regulation when treating this patient. Samaria Li OFFICE SYSTEMS TECHNOLOGY INSTRUCTOR * Kassy Tabares, POLLUTION CONTROL CHEMIST - COILED TUBING OPERATOR - 01/09/2023 6:04 AM EDT Images from the original note were not included. Cardiothoracic Surgery/CCM Progress Note PATIENT NAME: Lacy Alvarado DATE: 01/09/23 HPI: 72 y.o. female was referred by Dr. Bhanu Milian. Patient was admitted on 12/18/22 to [facility] with CP history of CHF, CAD, DM [...] nursing. Voiding appropriately. SNF pending -->would like [facility] if able. Review of Systems Constitutional: [...] SubQ Disposition: TBD; pending discharge to hopefully [facility]. Central Line: []Yes [x] No Arterial Line: []Yes [x] No Araya: []Yes [x] No Restraints: []Yes [x] No Patient discussed and plan of day developed from multidisciplinary rounds between Cardiothoracic Surgery (Cardiothoracic Surgeon, SONYA) and Critical Care Attending Cardiac Core Medications: ASA, Statin, and BB EF: normal 01/01/23 Blood Conservation: Transfused postoperatively Agriscience Instructor: Valente * Samaria Li, JANICE - 01/08/2023 10:17 AM EDT Physical Therapy Facility/Department: [facility] Physical Therapy Daily Treatment Note NAME: Lacy Alvarado : 1950 Date of Service: 01/08/2023 Discharge Recommendations: IP Rehab, Senior Care Facility PT Equipment Recommendations Equipment Needed: No [...] and strength to complete stairs safely with Man[place] to avoid a fall. Performance Deficits/Impairments: Decreased functional mobility , Decreased endurance, Increased pain, Decreased ADL status, Decreased strength, Decreased posture, Decreased balance Treatment Diagnosis: limited mobility Decision Making: Medium Complexity Patient Diagnosis(es): The primary encounter diagnosis was CAD in [place] artery. A diagnosis of Coronary artery disease involving coronary bypass graft, unspecified whether angina present, unspecified whether [place] or transplanted heart was also pertinent to this visit. has a past medical history of CHF (congestive heart failure) (CMS/HCC) ([facility]), Diabetes mellitus ([facility]), GERD (gastroesophageal reflux disease), Hyperlipidemia, Hypertension, RA (rheumatoid arthritis) ([facility]), Seizure ([facility]), Seizures ([facility]), and Sleep apnea. has a past surgical [...] / Caregiver Present: No Diagnosis: CAD in [place] artery s/p CABG on 01/01 Follows Commands: [...] Treatment Minutes: 39 Minutes (FA, GT. TP) OFFICE SYSTEMS TECHNOLOGY INSTRUCTOR wore PPE in compliance with hospital guidelines and regulation when treating this patient. Samaria Li, OFFICE SYSTEMS TECHNOLOGY INSTRUCTOR * Chandler Ram, POLLUTION CONTROL CHEMIST - COILED TUBING OPERATOR - 01/08/2023 6:04 AM EDT Images from the original note were not included. Cardiothoracic Surgery/CCM Progress Note PATIENT NAME: Lacy Alvarado DATE: 01/08/23 HPI: 72 y.o. female was referred by Dr. Bhanu Milian. Patient was admitted on 12/18/22 to [facility] with CP history of CHF, CAD, DM [...] Conversationsongoing with family about living arrangements at [place]. Review of Systems Constitutional: Negative for chills, [...] EF: Normal (01/01/23) Blood Conservation: Transfused post-op. Agriscience Instructor: Valente Cardiology * Talita Haque RD - [...] provided with heart healthy diet handout with [facility] RD phone number at initial assessment. [...] muscle mass loss Fluid Accumulation: Mild Extremities Pellet Post Inspector Strength: Not Performed Nutrition Assessment: Pt with PMH including HTN, DM, HLD, CHF, RA, epilepsy, GERD, LINA, prior PCI, presented to [facility] on 01/01/23 for CABG after recent admissiont to [facility] on 12/18/22 and had LHC which showed [...] On: Kcal/kg Weight Used for Energy Requirements: Harrison (25-30 kcal/kg) Weight for Energy Calculation (kg): 50 kg Total Energy Requirements (kcals/day): 4401-7844 Weight Used for Protein Requirements: Harrison (1.2-1.5 g/kg) Weight in Kg Used for [...] Weight: 78 kg (172 lb) (no method) Harrison Body Weight (lbs) (Calculated): 110 lbs Harrison Body Weight (Kg) (Calculated): 50 kg % Harrison Body Weight (Calculated): 157.9 % BMI (kg/m2) [...] to determine Talita Haque RD, LD Contact: *[phone] or via Porphyrio chat * Kristel Beard MD - 01/07/2023 11:03 AM EDT Department of Internal Medicine Division of Endocrinology, Diabetes, & Metabolism Endocrinology Note Patient Name: Lacy Alvarado : 1950 AGE: 72 y.o. Room/Bed: T1-103/T1-103 A Admission Date: 01/01/2023 Visit Date: 01/07/2023 Reason for Endocrine Consult: post op heart Provider/Team Requesting Consult: cts PCP: MAYDA Marspt Grinder Outside Diameter: No ASSESSMENT: DM 2 with hyperglycemia without halfway insulin Stress hyperglycemia CAD s/p Cabgx4 PLAN: [...] found for: CHOLHDLRATIO No results found for: [id number] No results found for: TSH, N2TBLPT, Y4WQFLU, THYROIDAB Radiology reportsas per the Radiologist Radiology: [...] date of this note. * Samaria Li OFFICE SYSTEMS TECHNOLOGY INSTRUCTOR - 01/07/2023 10:41 AM EDT Physical Therapy Facility/Department: [facility] Physical Therapy Daily Treatment Note NAME: Lacy Alvarado : 1950 Date of Service: 01/07/2023 Discharge Recommendations: IP Rehab, Senior Care Facility PT Equipment Recommendations Equipment Needed: No [...] The primary encounter diagnosis was CAD in [place] artery. A diagnosis of Coronary artery disease involving coronary bypass graft, unspecified whether angina present, unspecified whether [place] or transplanted heart was also pertinent to this visit. has a past medical history of CHF (congestive heart failure) ([facility]/HCC) ([facility]), Diabetes mellitus ([facility]), GERD (gastroesophageal reflux disease), Hyperlipidemia, Hypertension, RA (rheumatoid arthritis) ([facility]), Seizure ([facility]), Seizures ([facility]), and Sleep apnea. has a past surgical [...] / Caregiver Present: No Diagnosis: CAD in [place] artery s/p CABG on 01/01 Follows Commands: [...] Minutes: 42 Minutes (FA, GT x 2) OFFICE SYSTEMS TECHNOLOGY INSTRUCTOR wore PPE in compliance with hospital guidelines and regulation when treating this patient. Samaria Li, OFFICE SYSTEMS TECHNOLOGY INSTRUCTOR * Shruthi Weaver, POLLUTION CONTROL CHEMIST - COILED TUBING OPERATOR - 01/07/2023 5:53 AM EDT Images from the original note were not included. Cardiothoracic Surgery/[facility] Progress Note PATIENT NAME: Lacy Alvarado DATE: 01/07/23 HPI: 72 y.o. female was referred by Dr. Bhanu Milian. Patient was admitted on 12/18/22 to [facility] with CP history of CHF, CAD, DM [...] EF: 01/01: Normal Blood Conservation: Transfused postop Agriscience Instructor: Valente Cardiology * Wendy Cassidyults - 01/06/2023 [...] The primary encounter diagnosis was CAD in [place] artery. A diagnosis of Coronary artery disease involving coronary bypass graft, unspecified whether angina present, unspecified whether [place] or transplanted heart was also pertinent to this visit. has a past medical history of CHF (congestive heart failure) (CMS/HCC) ([facility]), Diabetes mellitus (HCC), GERD (gastroesophageal reflux disease), Hyperlipidemia, Hypertension, RA (rheumatoid arthritis) ([facility]), Seizure (HCC), Seizures (HCC), and Sleep apnea. [...] Daily Activity Raw Score: 22 ADL Inpatient [facility] G-Code Modifier: CJ Goals Encounter Problems Encounter [...] Plan of Care supervision is transferred to [facility] Occupational Therapist. Goals and/or treatment plan was established in collaboration with patient/family/other representatives. Wendy Curran S/OT * Samaria Li PTA - 01/06/2023 10:07 AM EDT Physical Therapy Facility/Department: [facility] Physical Therapy Daily Treatment Note NAME: Lacy [...] The primary encounter diagnosis was CAD in [place] artery. A diagnosis of Coronary artery disease involving coronary bypass graft, unspecified whether angina present, unspecified whether [place] or transplanted heart was also pertinent to this visit. has a past medical history of CHF (congestive heart failure) (CMS/HCC) ([facility]), Diabetes mellitus ([facility]), GERD (gastroesophageal reflux disease), Hyperlipidemia, Hypertension, RA (rheumatoid arthritis) ([facility]), Seizure ([facility]), Seizures ([facility]), and Sleep apnea. has a past surgical [...] / Caregiver Present: No Diagnosis: CAD in [place] artery s/p CABG on 01/01 Follows Commands: [...] Treatment Minutes: 40 Minutes (FA, GT, TP) OFFICE SYSTEMS TECHNOLOGY INSTRUCTOR wore PPE in compliance with hospital guidelines and regulation when treating this patient. Samaria Li, OFFICE SYSTEMS TECHNOLOGY INSTRUCTOR * Shruthi Weaver, POLLUTION CONTROL CHEMIST - COILED TUBING OPERATOR - 01/06/2023 6:06 AM EDT Images from the original note were not included. Cardiothoracic Surgery/[facility] Progress Note PATIENT NAME: Lacy Alvarado DATE: 01/06/23 HPI: 72 y.o. female was referred by Dr. Bhanu Milian. Patient was admitted on 12/18/22 to [facility] with CP history of CHF, CAD, DM [...] EF: 01/01: Normal Blood Conservation: Transfused postop Agriscience Instructor: Valente Cardiology Associated attestation - [place] [...] Alvarado : 1950 AGE: 72 y.o. Room/Bed: [email or web address] Admission Date: 01/01/2023 Visit Date: 01/05/2023 Reason for Endocrine Consult: post op heart Provider/Team Requesting Consult: [facility] PCP: MAYDA GARCIA Outpt Grinder Outside Diameter: No ASSESSMENT: DM 2 with hyperglycemia without halfway insulin Stress hyperglycemia CAD s/p Cabgx4 PLAN: [...] found for: CHOLHDLRATIO No results found for: [id number] No results found for: TSH, U0QHBLB, Q9QZWID, THYROIDAB Radiology reportsas per the Radiologist Radiology: ECG 12 lead Result Date: 01/01/2023 Sinus rhythm History/Other: Past Medical History: Past Medical History: Diagnosis Date CHF (congestive heart failure) ([facility]/HCC) ([facility]) Diabetes mellitus (HCC) GERD (gastroesophageal reflux disease) Hyperlipidemia Hypertension RA (rheumatoid arthritis) ([facility]) Seizure (HCC) last seizure 5 months ago nathaniel murray 08/24 Seizures ([facility]) Sleep apnea Past Surgical History: Past Surgical [...] date of this note. * Chandler Ram, POLLUTION CONTROL CHEMIST - COILED TUBING OPERATOR - 01/05/2023 6:19 AM EDT Images from the original note were not included. Cardiothoracic Surgery/CCM Progress Note PATIENT NAME: Lacy Alvarado DATE: 01/05/23 HPI: Lacy Alvarado is a 72 y.o. female was referred to us by Dr. Bhanu Milian. Patient was admitted on12/18/22 to [facility] with CP history of CHF, CAD, DM [...] Nomal (SIS 01/01/23) Blood Conservation: Transfused post-op. Agriscience Instructor: Valente Cardiology Associated attestation - [place] [...] 01/04/2023 1:07 PM EDT Physical Therapy Facility/Department: [facility] Physical Therapy Daily Treatment Note NAME: [...] her apartment. Currently, recommend IP Rehab at [facility]. Performance Deficits/Impairments: Decreased functional mobility , Decreased endurance, Increased pain, Decreased ADL status, Decreased strength, Decreased posture, Decreased balance Decision Making: Medium Complexity Patient Diagnosis(es): The primary encounter diagnosis was CAD in [place] artery. A diagnosis of Coronary artery disease involving coronary bypass graft, unspecified whether angina present, unspecified whether [place] or transplanted heart was also pertinent to this visit. has a past medical history of CHF (congestive heart failure) (CMS/HCC) ([facility]), Diabetes mellitus ([facility]), GERD (gastroesophageal reflux disease), Hyperlipidemia, Hypertension, RA (rheumatoid arthritis) ([facility]), Seizure ([facility]), Seizures ([facility]), and Sleep apnea. has a past surgical [...] / Caregiver Present: No Diagnosis: CAD in [place] artery s/p CABG on 01/01 Follows Commands: [...] Plan of Care supervision is transferred to [facility] Rehab Department Physical Therapist. Ambreen Avitia PT * Angela Smith MD - 01/04/2023 10:34 AM EDT Department of Internal Medicine Division of Endocrinology, Diabetes, & Metabolism Endocrinology Note Patient Name: Lacy Alvarado : 1950 AGE: 72 y.o. Room/Bed: [email or web address] [[email or web address] A Admission Date: 01/01/2023 Visit Date: 01/04/2023 Reason for Endocrine Consult: post op heart Provider/Team Requesting Consult: cts PCP: MAYDA GARCIA Outpt Grinder Outside Diameter: No ASSESSMENT: DM 2 with hyperglycemia without byproducts extractor insulin Stress hyperglycemia CAD s/p Cabgx4 PLAN: [...] found for: CHOLHDLRATIO No results found for: [id number] No results found for: TSH, N9GPJIE, N8TXBBA, THYROIDAB Radiology reportsas per the Radiologist Radiology: [...] date of this note. * Chandler Ram, POLLUTION CONTROL CHEMIST - COILED TUBING OPERATOR - 01/04/2023 6:02 AM EDT Images from the original note were not included. Cardiothoracic Surgery/[facility] Progress Note PATIENT NAME: Lacy Alvarado DATE: 01/04/23 HPI: Lacy Alvarado is a 72 y.o. female was referred to us by Dr. Bhanu Milian. Patient was admitted on12/18/22 to [facility] with CP history of CHF, CAD, DM [...] Nomal (SIS 01/01/23) Blood Conservation: Transfused post-op. Agriscience Instructor: Valente Cardiology * Angela Smith MD - 01/03/2023 9:18 AM EDT Department of Internal Medicine Division of Endocrinology, Diabetes, & Metabolism Endocrinology Note Patient Name: Lacy Alvarado : 1950 AGE: 72 y.o. Room[facility]Bed: [facility] A Admission Date: 01/01/2023 Visit Date: 01/03/2023 Reason for Endocrine Consult: post op heart Provider/Team Requesting Consult: cts PCP: MAYDA GARCIA Outpt Grinder Outside Diameter: No ASSESSMENT: DM 2 with hyperglycemia without halfway insulin Stress hyperglycemia CAD s/p Cabgx4 PLAN: [...] found for: CHOLHDLRATIO No results found for: [id number] No results found for: TSH, B5MNKCQ, W2ROALD, THYROIDAB Radiology reportsas per the Radiologist Radiology: ECG 12 lead Result Date: 01/01/2023 Sinus rhythm History/Other: Past Medical History: Past Medical History: Diagnosis Date CHF (congestive heart failure) ([facility]/HCC) (HCC) Diabetes mellitus (HCC) GERD (gastroesophageal reflux [...] date of this note. * Chandler Ram, POLLUTION CONTROL CHEMIST - COILED TUBING OPERATOR - 01/03/2023 5:56 AM EDT Images from the original note were not included. Cardiothoracic Surgery/[facility] Progress Note PATIENT NAME: Lacy Alvarado DATE: 01/03/23 HPI: Lacy Alvarado is a 72 y.o. female was referred to us by Dr. Bhanu Milian. Patient was admitted on12/18/22 to [facility] with CP history of CHF, CAD, DM [...] Nomal (SIS 01/01/23) Blood Conservation: Transfused post-op. Agriscience Instructor: Valente Cardiology * Aleksandr Higuera, PT - 01/02/2023 11:02 AM EDT Physical Therapy Facility/Department: [facility] Physical Therapy Initial Evaluation NAME: Lacy [...] The primary encounter diagnosis was CAD in [place] artery. A diagnosis of Coronary artery disease involving coronary bypass graft, unspecified whether angina present, unspecified whether [place] or transplanted heart was also pertinent to this visit. has a past medical history of CHF (congestive heart failure) (CMS/HCC) ([facility]), Diabetes mellitus ([facility]), GERD (gastroesophageal reflux disease), Hyperlipidemia, Hypertension, RA (rheumatoid arthritis) ([facility]), Seizure ([facility]), Seizures ([facility]), and Sleep apnea. has a past surgical [...] / Caregiver Present: No Diagnosis: CAD in [place] artery s/p CABG on 01/01 Follows Commands: [...] Plan of Care supervision is transferred to [facility] Rehab Department Physical Therapist. Aleksandr Higuera, PT * Cassandra Olivarez, GORDO - TOOL AND DIE MAKER - 01/02/2023 9:28 AM EDT Department of Internal Medicine Division of Endocrinology, Diabetes, & Metabolism Endocrinology Note Patient Name: Lacy Alvarado : 1950 AGE: 72 y.o. Room/Bed: T1-103/T1-103 A Admission Date: 01/01/2023 Visit Date: 01/02/2023 Reason for Endocrine Consult: post op heart Provider/Team Requesting Consult: cts PCP: MAYDA GARCIA Outpt Grinder Outside Diameter: No ASSESSMENT: Cad s/p Cabgx4 Dm2 with hyperglycemia without byproducts extractor insulin Stress hyperglycemia Chf Hld/htn PLAN: discontinue [...] regular, 1-50 Units/hr, Last Rate: Stopped (01/02/23 5429) nitroprusside, 0.1-3 mcg/kg/min, Last Rate: Stopped (01/02/23 2062) PRN Meds:PRN medications: calcium gluconate, dextrose, dextrose, [...] found for: CHOLHDLRATIO No results found for: LOUA34DDL No results found for: TSH, K9SGMAZ, T4XZFIS, THYROIDAB Radiology reportsas per the Radiologist Radiology: ECG 12 lead Result Date: 01/01/2023 Sinus rhythm History/Other: Past Medical History: Past Medical History: Diagnosis Date CHF (congestive heart failure) ([facility]/HCC) (HCC) Diabetes mellitus (HCC) GERD (gastroesophageal reflux [...] in note. * Chandler Ram APRN - COILED TUBING OPERATOR - 01/02/2023 5:56 AM EDT Images from the original note were not included. Cardiothoracic Surgery/[facility] Progress Note PATIENT NAME: Lacy Alvarado DATE: 01/02/23 HPI: Lacy Alvarado is a 72 y.o. female was referred to us by Dr. Bhanu Milian. Patient was admitted on12/18/22 to [facility] with CP history of CHF, CAD, DM [...] Nomal (SIS 01/01/23) Blood Conservation: Transfused post-op. Agriscience Instructor: [facility]ente Cardiology Associated attestation - Carlos Chavarria [...] care time 35 minutes documented in this [facility]09-09-2023 Note* Care Coordination - Alaina Truong RN - 01/10/2023 2:11 PM EDT Images from the original note were not included. CARE COORDINATION DAILY NOTE/UPDATE Medical Plan: sp CABG x 3 POD # 9. Discharge Plan: [facility] Discharge Barriers: pending medical clearance Received a message from Anna COLLINS I heard from [facility] okay to admit. Stated by Shruthi Marshall [...] RN 01/02/2023 2:07 PM 01/06/2023 Shruthi Weaver, POLLUTION CONTROL CHEMIST - COILED TUBING OPERATOR 01/01/2023 11:16 AM 01/06/2023 Azam Rose MD 01/01/2023 5:45 AM Length of Stay (Days): 9 GMLOS: 5.9 [facility]* Care Coordination - Delores Mullins RN - 01/09/2023 10:21 AM EDT Images from the original note were not included. Care Management Progress Note Patient remains on HLU sp CABG x 3 POD # 8. [facility] can accept, spoke with [...] RN 01/02/2023 2:07 PM 01/06/2023 Shruthi Weaver, POLLUTION CONTROL CHEMIST - COILED TUBING OPERATOR 01/01/2023 11:16 AM 01/06/2023 Azam Rose MD 01/01/2023 5:45 AM Length of Stay (Days): 8 GMLOS: 5.9 [facility]65[facility]05 [facility] Discharge instructions* Discharge Instructions* GORDO Felix CNP - 01/09/2023 8:42 AM EDT Cardiothoracic Surgery: Symptom Management Office phone number: [phone] Office is open 8:30 am -4 pm. [...] Call cardiothoracic surgery line for further instructions: [phone] Office is open 8:30 am -4 pm. [...] Problems Problem List * (Principal) CAD in [place] artery Allergic disorder Amnesia Arthritis Overview Signed [...] Dissociative disorder DM2 (diabetes mellitus, type 2) ([facility]) Overview Signed 01/01/2023 3:09 PM by Juan [...] Zuluaga MD DME: Camacho Titration done @ [facility] 03/08/2012 recommended CPAP @ 11 cm [...] assistance Toileting Minimal assistance Feeding Minimal assistance Online Marketing Strategist Independent Med Delivery yes Wound Care Documentation [...] Score: @READMISSIONRISKDETAILS@ Discharging to Facility/ Agency Name: [facility] Address: [address] [place] [address] Fax: Dialysis Facility (if applicable) Name: Address: Dialysis Schedule: Phone: Fax: Denture Model Maker/Jacket Changer signature: ICIAN SECTION Prognosis: good Condition at [...] the diagnosis listed and that she requires nursing home facility for less than 30 days. Update Admission H&P: Changes in H&P as follows: see below 72 y.o. female was referred by Dr. Bhanu Milian. Patient was admitted on 12/18/22 to [facility] with CP history of CHF, CAD, DM [...] through Care Everywhere. * Heart Healthy Diet (Indian) documented in this encounterSMarietta Memorial HospitalTwmwki64-59-8443 Note* Care Coordination - Good Jang - 01/09/2023 8:15 AM EDT Referral placed to [facility] via [facility] per [facility] request. Referral placed to [facility] via fax # [phone] to Shauna in Admissions Await review and response regarding ability to accept. [facility] notified. [facility] HospitalUtqgne83-39-2569 Note* Care Coordination - Good Jang - 01/08/2023 3:06 PM EDT Referral placed to SNF- [facility] via [facility] per [facility] request. Await review and response regarding ability to accept. [facility] notified. [facility] HospitalVzpwtd64-08-0529 Note* Care Coordination - Delores Mullins RN - 01/08/2023 2:36 PM EDT Spoke with patient at bedside, nipema Holloway over the phone to discuss therapy recommendations. Agreeable to SNF, [facility] and 2nd choice [facility]. [facility] HospitalQdeynl34-88-1748 Note* Care Coordination - Delores Mullins RN - 01/07/2023 2:18 PM EDT Images from the original note were not included. Care Management Progress Note Patient remains on HLU s/p CABG x 3 POD # 6. PT continuing to recommend IPR vs SNF. [facility] unable to accept patient, [facility], patient and niece declining SNF, discharge plan is home with [facility]. [facility] to follow for updated therapy [...] RN 01/02/2023 2:07 PM 01/06/2023 Shruthi Weaver, POLLUTION CONTROL CHEMIST - COILED TUBING OPERATOR 01/01/2023 11:16 AM 01/06/2023 Azam Rose MD 01/01/2023 5:45 AM Length of Stay (Days): 6 GMLOS: 5.9 [facility] HospitalSxalvr90-53-5050 NoteReceived referral and reviewed chart. Phase II Cardiac Rehab Referral discussed with Lacy Alvarado. Patient prefers cardiac rehab at [facility]. Given information on cardiac rehab at preferred location. [facility]09-05-2023 Note* Care Coordination - Delores Mullins RN - 01/06/2023 1:01 PM EDT [facility] unable to accept patient, too functional. Updated patient at bedside and alyssa Holloway (HCPMARISOL) over the phone. Declined SNF at this time, would like to plan discharge home with HHC including PT/OT/SN/SEEING EYE DOG TRAINER if possible. Will updated [facility], CTS STOCK BLENDER aware. [facility] HospitalFflcpw45-94-4789 Consult note* Faiza Thomas - 01/06/2023 11:33 AM EDTAssociated Order(s): IP CONSULT TO CARDIAC REHAB Received referral and reviewed chart. Phase II Cardiac Rehab Referral discussed with Lacy Alvarado. Patient prefers cardiac rehab at [facility]. Given information on cardiac rehab at preferred location. [facility] HospitalAsgwqu69-47-3574 Consult note* Faiza Thomas - 01/06/2023 11:33 AM EDTAssociated Order(s): IP CONSULT TO CARDIAC REHAB Received referral and reviewed chart. Phase II Cardiac Rehab Referral discussed with Lacy Alvarado. Patient prefers cardiac rehab at [facility]. Given information on cardiac rehab [...] heart healthy diet handout at bedside with [facility] [address] phone number. 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 Pt underwent CABG x 4 01/01. Extubated with diet ordered. Pt is sleeping in chair at time of RD visit-did not disturb. Provided heart healthy diet handout with [facility] [address] phone number for reference at bedside. Estimated Daily Nutrient Needs: Energy Requirements Based On: Kcal/kg Weight Used for Energy Requirements: Harrison (25-30 kcal/kg) Weight for Energy Calculation (kg): 50 kg Total Energy Requirements (kcals/day): 8878-1206 Weight Used for Protein Requirements: Harrison (1.2-1.5 g/kg) Weight in Kg Used for [...] Weight: 78 kg (172 lb) (no method) Harrison Body Weight (lbs) (Calculated): 110 lbs Harrison Body Weight (Kg) (Calculated): 50 kg % Harrison Body Weight (Calculated): 157.9 % BMI (kg/m2) [...] to determine Talita Haque RD, LD Contact: *[phone] or via Porphyrio chat * Kaye Sanchez APRN - COILED TUBING OPERATOR - 01/01/2023 11:40 AM EDTAssociated Order(s): IP CONSULT TO ENDOCRINOLOGY Department of Internal Medicine Division of Endocrinology, Diabetes, & Metabolism Endocrinology Note Patient Name: Lacy Alvarado : 1950 AGE: 72 y.o. Room/Bed: T1-103/T1-103 A Admission Date: 01/01/2023 Visit Date: 01/01/2023 Reason for Endocrine Consult: post op heart Provider/Team Requesting Consult: cts PCP: MAYDA GARCIA Outpt Grinder Outside Diameter: No ASSESSMENT: Cad s/p Cabgx4 Dm2 with hyperglycemia without halfway insulin Stress hyperglycemia Chf Hld/htn PLAN: Continue [...] found for: CHOLHDLRATIO No results found for: [id number] No results found for: TSH, H2MJVGP, A6FLSUW, THYROIDAB Radiology reportsas per the Radiologist Radiology: [...] in note. * Mynor Villareal APRN - COILED TUBING OPERATOR - 01/01/2023 8:58 AM EDT Images from the original note were not included. [facility]: Critical Care Consultation Note Date: 01/01/23 PATIENT NAME: Lacy Alvarado : 1950 (72 y.o.) Reason for Consult: Critical Care & Vent Management HPI: Lacy Alvarado is a 72 y.o. female was referred to us by Dr. Bhanu Milian. Patient was admitted on12/18/22 to [facility] with CP history of CHF, CAD, DM [...] on 01/01/2023 12/24/22 Kassy Tabares APRN - COILED TUBING OPERATOR traMADol (Ultram) 50 MG tablet Take 50 [...] PM EDT I have personally performed a zwgz-yj-juqx diagnostic evaluation on this patient on date of /31/23 . History, labs, imaging studies, and electronic medical record have been reviewed by me. This notedocumented by the []boiling house hand [x]SONYA reflects my history, exam, and medical [...] CTs No Pacer wires documented in this [facility]09-05-2023 NoteCare Management Progress Note Patient remains on [...] 2:07 PM 01/06/2023 Shruthi Weaver APRN - COILED TUBING OPERATOR 01/01/2023 11:16 AM 01/06/2023 Azam Rose MD 01/01/2023 5:45 AM Length of Stay (Days): 5 GMLOS: 5.9 [facility]09-05-2023 Note* Care Coordination - Delores Mullins RN [...] RN 01/02/2023 2:07 PM 01/06/2023 Shruthi Weaver, POLLUTION CONTROL CHEMIST - COILED TUBING OPERATOR 01/01/2023 11:16 AM 01/06/2023 Azam Rose MD 01/01/2023 5:45 AM Length of Stay (Days): 5 GMLOS: 5.9 [facility] HospitalQvuwxw31-75-6288 NoteCardiothoracic Surgery/CCM Progress Note PATIENT NAME: Lacy Alvarado DATE: 01/04/23 HPI: Lacy Alvarado is a 72 y.o. female was referred to us by Dr. Bhanu Milian. Patient was admitted on 12/18/22 to [facility] with CP history of CHF, CAD, DM [...] Nomal (SIS 01/01/23) Blood Conservation: Transfused post-op. Agriscience Instructor: Valente Cardiology [facility] [id number] NoteCardiothoracic Surgery/CCM Progress Note PATIENT NAME: Lacy Alvarado DATE: 01/03/23 HPI: Lacy Alvarado is a 72 y.o. female was referred to us by Dr. Bhanu Milian. Patient was admitted on 12/18/22 to [facility] with CP history of CHF, CAD, DM [...] Nomal (SIS 01/01/23) Blood Conservation: Transfused post-op. Agriscience Instructor: Valente Cardiology [facility]09-02-2023 Plan of care note* Care Plan - [...] Interventions Goal: Assess Nutritional Intake Outcome: Progressing [facility] HospitalTzwzvv72-44-8932 Note* Home Care - Lisa Yo RN - 01/02/2023 3:39 PM EDT Cotton Cleaner following case for Discharge Needs. [facility] HospitalNootih83-84-8977 NoteNutrition Assessment Type and Reason for Visit: [...] heart healthy diet handout at bedside with [facility] [address] phone number. 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 Pt underwent CABG x 4 01/01. Extubated with diet ordered. Pt is sleeping in chair at time of RD visit-did not disturb. Provided heart healthy diet handout with [facility] [address] phone number for reference at bedside. Estimated Daily Nutrient Needs: Energy Requirements Based On: Kcal/kg Weight Used for Energy Requirements: Harrison (25-30 kcal/kg) Weight for Energy Calculation (kg): 50 kg Total Energy Requirements (kcals/day): 4283-7596 Weight Used for Protein Requirements: Harrison (1.2-1.5 g/kg) Weight in Kg Used for [...] 78.8 kg (173 lb 11.6 oz) (01/02 [facility]) Admission Body Weight: 78 kg (172 lb) (no method) Harrison Body Weight (lbs) (Calculated): 110 lbs Harrison Body Weight (Kg) (Calculated): 50 kg % Harrison Body Weight (Calculated): 157.9 % BMI (kg/m2) [...] to determine Talita Haque RD, LD Contact: *[phone] or via WorldRemit [id number] Note* Care Coordination - Delores Mullins RN - 01/02/2023 2:07 PM EDT Care Managment Initial Assessment Date: 01/02/2023 Patient Name: Lacy Alvarado : 1950 Patient Information Source of Information: Patient Cognition/Language: WFL - Within Functional Limits Permission given to speak with patient telecommunications sales representative/caregiver as indicated: Yes Confirmation of Payer with patient/family: Yes Payer Name: An[employer] Medicare [place]: No Confirmation of Primary Care Physician: Confirmed [...] Living Prescription Coverage: Yes Pharmacy Used: [facility] Medication Management: Independent Transportation/Shopping: Assistance Provider [...] for home care needs. Delores Mullins RN [facility] HospitalYghvhy90-62-7071 Consult note* Talita Haque RD - 01/02/2023 [...] heart healthy diet handout at bedside with [facility] phone number. 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 Pt underwent CABG x 4 01/01. Extubated with diet ordered. Pt is sleeping in chair at time of RD visit-did not disturb. Provided heart healthy diet handout with [facility] phone number for reference at bedside. Estimated Daily Nutrient Needs: Energy Requirements Based On: Kcal/kg Weight Used for Energy Requirements: Harrison (25-30 kcal/kg) Weight for Energy Calculation (kg): 50 kg Total Energy Requirements (kcals/day): 3019-4893 Weight Used for Protein Requirements: Harrison (1.2-1.5 g/kg) Weight in Kg Used for [...] 78.8 kg (173 lb 11.6 oz) (01/02 [facility]) Admission Body Weight: 78 kg (172 lb) (no method) Harrison Body Weight (lbs) (Calculated): 110 lbs Harrison Body Weight (Kg) (Calculated): 50 kg % Harrison Body Weight (Calculated): 157.9 % BMI (kg/m2) [...] to determine Talita Haque RD, LD Contact: *[phone] or via Porphyrio chat [facility] HospitalLawyra70-39-1642 NotePatient: Lacy Alvarado Procedure Summary Date: 01/01/23 Room / Location: [address] Operating Room Anesthesia Start: 657 Anesthesia Stop: 1128 Procedures: CABG AND SIS (Chest) Echocardiography transesophageal real-time Diagnosis: Atherosclerotic heart disease of [place] coronary artery without angina pectoris (Atherosclerotic heart disease of [place] coronary artery without angina pectoris [I25.10]) Surgeons: [...] discharged once all PACU criteria has been met.[facility]08-31-2023 NotePatient: Lacy Alvarado Procedure Summary Date: 01/01/23 Room / Location: [facility] OR [address] [place] [address] Operating Room Anesthesia Start: 657 Anesthesia Stop: 1128 Procedures: CABG AND SIS (Chest) Echocardiography transesophageal real-time Diagnosis: Atherosclerotic heart disease of [place] coronary artery without angina pectoris (Atherosclerotic heart disease of [place] coronary artery without angina pectoris [I25.10]) Surgeons: [...] questions and acknowledgement of understanding.[facility] [id number] NoteArterial Line: Date/Time: 01/01/2023 7:05 AM An [...] secured by Tegaderm and tape. Staffing Performed: PICKERS MATERIAL HANDLERS Anesthesiologist: Cruzito Frost MD Resident/PICKERS MATERIAL HANDLERS: Azar Rojo APRN - BOB Performed by: Azar Rojo APRN - BOB Authorized by: Azar Rojo APRN - [place] [address]-31-2023 Consult note* Kaye Sanchez APRN - [facility] - 01/01/2023 11:40 AM EDTAssociated Order(s): IP CONSULT TO ENDOCRINOLOGY Department of Internal Medicine Division of Endocrinology, Diabetes, & Metabolism Endocrinology Note Patient Name: Lacy Alvarado : 1950 AGE: 72 y.o. Room/Bed: [email or web address] A Admission Date: 01/01/2023 Visit Date: 01/01/2023 Reason for Endocrine Consult: post op heart Provider/Team Requesting Consult: cts PCP: MAYDA GARCIA Outpt Grinder Outside Diameter: No ASSESSMENT: Cad s/p Cabgx4 Dm2 with hyperglycemia without byproducts extractor insulin Stress hyperglycemia Chf Hld/htn PLAN: Continue [...] found for: CHOLHDLRATIO No results found for: YSTB38AVR No results found for: TSH, S4BUJVA, T3ZHQPS, THYROIDAB Radiology reportsas per the Radiologist Radiology: [...] coordination of care as documented in note. Qlika Phone: [phone]) 729-821608-31-2023 NoteAirway Date/Time: 01/01/2023 7:08 AM Urgency: scheduled Airway not difficult General Information and Staff Patient location during procedure: Procedural Anesthesiologist: Cruzito Frost MD Resident/PICKERS MATERIAL HANDLERS: GORDO Kenney CRNA Performed: [employer] HANDLERS Performed by: GORDO Kenney CRNA Authorized by: GORDO Keneny CRNA Indications and Patient Condition Indications for [...] attempts: BVM Number of other approaches attempted: [address] [place], [place] 5259408-31-2023 Note Central Venous Line: Date/Time: 01/01/2023 7:26 [...] CRNA Authorized by: Azar Rojo APRN - [facility]-31-2023 Consult note* GORDO Bennett CNP - 01/01/2023 8:58 AM EDT Images from the original note were not included. [facility] Group: Critical Care Consultation Note Date: 01/01/23 PATIENT NAME: Lacy Alvarado : 1950 (72 y.o.) Reason for Consult: Critical Care & Vent Management HPI: Lacy Alvarado is a 72 y.o. female was referred to us by Dr. Bhanu Milian. Patient was admitted on12/18/22 to [facility] with CP history of CHF, CAD, DM [...] PM EDT I have personally performed a jtsz-uw-debj diagnostic evaluation on this patient on date of /31/23 . History, labs, imaging studies, and electronic medical record have been reviewed by me. This notedocumented by the []boiling house hand [x]SONYA reflects my history, exam, and medical [...] air leak in CTs No Pacer wires Qlika Phone: [phone] 562-985708-31-2023 Note* Op Note - Azam Rose MD [...] intraoperative transesophageal echocardiography Surgeon: Azam Rose MD Bung Driver(s): [] Thomas Silva [x] Raymundo Marie [x] [...] Milian. Patient was admitted on 12/18/22 to [facility] with CP. She had a history of [...] with closure. The sternum was reapproximated with otxohh-lt-rldtw wires and the overlying tissues were closed in multiple layers. The patient was transported to the intensive care unit in serious but stable condition. [facility]08-28-2023 NotePatient: Lacy Eduardo Procedure Information Date/Time: 01/01/23729 Procedures: CABG AND SIS (Chest) Echocardiography transesophageal real-time Location: [facility] OR [address] [place] [address] Operating Room Surgeons: Azam Rose MD Past Medical History: Past Medical History: No date: CHF (congestive heart failure) ([facility]/HCC) ([facility]) No date: Diabetes mellitus ([facility]) No date: GERD (gastroesophageal reflux disease) No date: Hyperlipidemia No date: Hypertension No date: RA (rheumatoid arthritis) ([facility]) No date: Seizure ([facility]) Comment: last seizure 5 months ago nathaniel mal 08/24 No date: Seizures ([facility]) No date: Sleep apnea Past Surgical History: [...] results found for this or any previous visit.[facility] 12-29-2022 NoteComprehensive Pre Surgical History and Physical ? Name: Lacy Alvarado : 1950 (Age-72 y.o.) Date of Service: Pt seen/examined on 12/29/2022 Procedure Information Date/Time: 01/01/23 0730 Procedures: CABG AND SIS (Chest) Echocardiography transesophageal real-time Location: [facility] OR [facility] Operating Room Surgeons: Azam Rose MD [...] cardiopulmonary testing. 1) Atherosclerotic heart disease of [place] coronary artery without angina pectoris [I25.10] Pre-op diagnosis: Atherosclerotic heart disease of [place] coronary artery without angina pectoris [I25.10] - [...] who we are asked to see/evaluate by [place] [address] for pre-operative evaluation prior to . CABG AND SIS (Chest) [46840 CPT(R)] Echocardiography transesophageal real-time [75525 CPT(R)] Anesthesia type: General Reason for Visit: [...] Milian. Patient was admitted on 12/18/22 to [facility] with CP. Per notes, patient has a [...] date: Hypertension No date: RA (rheumatoid arthritis) ([facility]) No date: Seizure (HCC) Comment: last seizure 5 months ago nathaniel murray 08/24 No date: Seizures ([facility]) No date: Sleep apnea Past Surgical History: [...] swallow. 12/24/22 12/24/22 Kassy Tabares APRN - SERNEA clopidogrel (Plavix) 75 MG tablet Take 75 mg (more content not included)...[facility]08-28-2023 NoteComprehensive Pre Surgical History and Physical ? Name: Lacy Alvarado : 1950 (Age-72 y.o.) Date of Service: Pt seen/examined on 12/29/2022 Procedure Information Date/Time: 01/01/23 0730 Procedures: CABG AND SIS (Chest) Echocardiography transesophageal real-time Location: [facility] OR [facility] Operating Room Surgeons: Azam Rose MD [...] cardiopulmonary testing. 1) Atherosclerotic heart disease of [place] coronary artery without angina pectoris [I25.10] Pre-op diagnosis: Atherosclerotic heart disease of [place] coronary artery without angina pectoris [I25.10] - [...] who we are asked to see/evaluate by [facility] 05 for pre-operative evaluation prior to . CABG AND SIS (Chest) [66150 CPT(R)] Echocardiography transesophageal real-time [22776 CPT(R)] Anesthesia type: General Reason for Visit: [...] Milian. Patient was admitted on 12/18/22 to [facility] with CP. Per notes, patient has a [...] History: No date: CHF (congestive heart failure) ([facility]/HCC) ([facility]) No date: Diabetes mellitus ([facility]) No date: GERD (gastroesophageal reflux disease) No date: Hyperlipidemia No date: Hypertension No date: RA (rheumatoid arthritis) ([facility]) No date: Seizure ([facility]) Comment: last seizure 5 months ago nathaniel trevor 08/24 No date: Seizures ([facility]) No date: Sleep apnea Past Surgical History: [...] swallow. 12/24/22 12/24/22 Kassy Tabares APRN - COILED TUBING OPERATOR clopidogrel (Plavix) 75 MG tablet Take 75 mg (more content not included)...[facility] [id number] History and physical note* Yolande Serra APRN - COILED TUBING OPERATOR - 12/29/2022 2:00 PM EDT Images from the original note were not included. Comprehensive Pre Surgical History and Physical ? Name: Lacy Alvarado : 1950 (Age-72 y.o.) Date of Service: Pt seen/examined on 12/29/2022 Procedure Information Date/Time: 01/01/23 0730 Procedures: CABG AND SIS (Chest) Echocardiography transesophageal real-time Location: [facility] Operating Room Surgeons: Azam Rose MD [...] cardiopulmonary testing. 1) Atherosclerotic heart disease of [place] coronary artery without angina pectoris [I25.10] Pre-op diagnosis: Atherosclerotic heart disease of [place] coronary artery without angina pectoris [I25.10] - [...] who we are asked to see/evaluate by [place] [address] for pre-operative evaluation prior to. CABG AND SIS (Chest) [13171 CPT(R)] Echocardiography transesophageal real-time [45814 CPT(R)] Anesthesia type: General Reason for Visit: [...] Milian. Patient was admitted on 12/18/22 to [facility] with CP. Per notes, patient has a [...] History: No date: CHF (congestive heart failure) ([facility]/HCC) ([facility]) No date: Diabetes mellitus ([facility]) No date: GERD (gastroesophageal reflux disease) No date: Hyperlipidemia No date: Hypertension No date: RA (rheumatoid arthritis) ([facility]) No date: Seizure ([facility]) Comment: last seizure 5 months ago felixnapoleon murray 08/24 No date: Seizures ([facility]) No date: Sleep apnea Past Surgical History: [...] Larkin CNP Date: 12/29/2022 at 2:58 PM [facility] Work Phone: 1(785) 472-429008-28-2023 History and physical note* GORDO Larkin CNP - 12/29/2022 2:00 PM EDT Images from the original note were not included. Comprehensive Pre Surgical History and Physical ? Name: Lacy Alvarado : 1950 (Age-72 y.o.) Date of Service: Pt seen/examined on 12/29/2022 Procedure Information Date/Time: 01/01/23 0730 Procedures: CABG AND SIS (Chest) Echocardiography transesophageal real-time Location: [address] Operating Room Surgeons: Azam Roes MD Chief Complaint: Heart vessels are clogged up patient states ASSESSMENT/PLAN: Patient is considered high risk for this high risk procedure/surgery () with no reducible risk factors. Based on the above evaluation, the benefits of the planned procedure likely exceed the risks. The patient is medically optimized to proceed with the planned procedure without any further cardiopulmonary testing. 1) Atherosclerotic heart disease of [place] coronary artery without angina pectoris [I25.10] Pre-op diagnosis: Atherosclerotic heart disease of [place] coronary artery without angina pectoris [I25.10] - [...] who we are asked to see/evaluate by [place] [address] for pre-operative evaluation prior to. CABG AND SIS (Chest) [95199 CPT(R)] Echocardiography transesophageal real-time [04669 CPT(R)] Anesthesia type: General Reason for Visit: [...] Milian. Patient was admitted on 12/18/22 to [facility] with CP. Per notes, patient has a [...] History: No date: CHF (congestive heart failure) ([facility]/HCC) ([facility]) No date: Diabetes mellitus ([facility]) No date: GERD (gastroesophageal reflux disease) No date: Hyperlipidemia No date: Hypertension No date: RA (rheumatoid arthritis) ([facility]) No date: Seizure ([facility]) Comment: last seizure 5 months ago nathaniel murray 08/24 No date: Seizures ([facility]) No date: Sleep apnea Past Surgical History: [...] of surgery 12/24/22 Kassy Tabares APRN - COILED TUBING OPERATOR pantoprazole (ProtoNix) 40 MG EC tablet Take [...] 12/29/2022 at 2:58 PM documented in this [facility] [id number] Telephone encounter Note* Telephone Encounter - GORDO Felix CNP - 12/24/2022 11:44 AM EDT Surg proc orders placed, medications e-scribed - talked to patient, answered all questions. [id number] Miscellaneous Notes* Telephone Encounter - GORDO Felix [...] mouth rinse [] Other: documented in this [facility]08-22-2023 NotePrep for Procedure Order Request: 12/23/22 Surgeon: Dr. Rose Surgery/Procedure: CABG & SIS Plan Admit: Yes PAT Appointment: 12/26/22 at 1:00 PM Date if yes: Date of Surgery/Procedure: 01/01/23 at 7:30 AM Medication needed held: [] None [] Other: Medication needed prescribed: [] None [x] Nasal ointment and mouth rinse [] Other: [facility]08-22-2023 Telephone encounter Note* Telephone Encounter - Katarzyna [...] Nasal ointment and mouth rinse [] Other: [id number] History of Present illness Narrative* Azam Rose MD - 12/23/2022 10:30 AM EDT Images from the original note were not included. [facility] CARDIOVASCULAR & THORACIC SURGERY [address] [facility] [address] Dept: [phone] Dept Loc: [phone] Visit type: New Reason for Visit: Multivessel [...] elective basis. History of Present Illness Lacy Alvaraod is a 72 y.o. female was referred to us by Dr. Bhanu Milian. Patient was admitted on 12/18/22 to [facility] with CP. Per notes, patient has a [...] This note may have been dictated using [employer] Edition 2.6 and/or Wallop Voice Recognition Feature. The document was proofread, however unrecognized voice recognition retort feeder ground bone errors may be present. documented in this [facility]08-22-2023 History of Present illness Narrative* Azam Rose MD - 12/23/2022 10:30 AM EDT Images from the original note were not included. [facility] CARDIOVASCULAR & THORACIC SURGERY [address] [facility] [address] Dept: [phone] Dept Loc: [phone] Visit type: New Reason for Visit: Multivessel [...] Milian. Patient was admitted on 12/18/22 to [facility] with CP. Per notes, patient has a [...] This note may have been dictated using [employer] Practice Edition 2.6 and/or Wallop Voice Recognition Feature. The document was proofread, however unrecognized voice recognition retort feeder ground bone errors may be present. documented in this [facility]08-18-2023 Discharge summary [facility] December 19, 2022 3:41pm Note Date/Time December 19, 2022 3: 38pm [facility] Medical Records Department [address] [place] [address] Instructions for Home/Discharge Instructions 12/19/22 1537 MR#: [id number] Acct: [id number] Name: LACY ALVARADO Ede Rep #:[id number] : 1950 72 From: Edwin Mo [...] Follow-up with the cardiothoracic surgery team at [place] as discussed. Discharge Orders/Prescriptions Prescriptions: New isosorbide [...] Prolia 60 mg/mL syringe 60 mg subcut [id number] Qty: 1 2RF Discontinued isosorbide mononitrate 30 [...] MD; Dr. Bhanu Milian MD ~ Signed [facility] Work Phone: 1(734) 146-578308-18-2023 Procedure [facility] 12-19-2022 Consult note Author Bhanu Milian [facility] December 19, 2022 4:13pm Note Date/Time December 19, 2022 8: 32am [facility] Medical Records Department [address] [place] [address] Consultation - Cardiology 12/19/22 0830 MR#: [id number] Acct: [id number] Name: LACY ALVARADO Rep #:[id number] : 1950 72 From: Karen LÓPEZ PA PCP: Dr. Mayda Garcia MD Status:A DM DELFIN Location: [place] [id number] <Statement entered by Bhanu Milian MD [...] She was referred to Dr. Rose at [facility]. She will follow-up with them [...] is a 72 F who presented to [facility] ER on 12/18/22 with Chest pain, she [...] 60%, circumflex 50% stenosis, RCA 60% stenosis. [facility] Medical History Abdominal pain Acute back pain Anemia Arthritis Atherosclerotic heart disease of [place] coronary artery without angina pectoris Cardiology follow-up [...] mg/mL subcutaneous syringe (Prolia) 60 mg subcut [id number] #1 mL 12/11/22 [Rx Last Taken Unknown] [...] Garcia MD; Dr. Bhanu Milian MD~ Signed [facility] Work Phone: 1(246) 937-914308-17-2023 History and physical note Author Edwin gerber [facility] December 18, 2022 4:38pm Note Date/Time December 18, 2022 4: 36pm [facility] Medical Records Department [address] [place] [address] H&P Exam - Hospitalist 12/18/22 1627 MR#: [id number] Acct: [id number] Name: LACY ALVARADO Rep #:[id number] : 1950 72 From: Edwin martin DO PCP: Dr. Mayda Garcia MD Status:A DM DELFIN Location: [place] [address] HPI - General General Date of Admission: 12/18/22 Date of Service: 12/18/22 Chief Complaint: Chest pain HPI Narrative Lacy Alvarado is a 72-year-old female with history significant for CAD s/p stenting on Plavix (follows w/ Dr. Johnson), hypertension, seizures, gae-nkzhelg-aiylsdkvw type 2 diabetes and GERD who presented to the [facility] ED on 12/18 with chest pain. Patient [...] to view this. Chest x-ray was nonacute. [facility] Medical History Abdominal pain Acute back pain Anemia Arthritis Atherosclerotic heart disease of [place] coronary artery without angina pectoris Cardiology follow-up [...] mg/mL subcutaneous syringe (Prolia) 60 mg subcut [id number] #1 mL 12/11/22 [Rx Last Taken Unknown] [...] 43.9 L, Lymph % (Auto) 45.0 H, Crawford % (Auto) 8.1, Eos % (Auto) 2.4, [...] Plavix (follows w/ Dr. Johnson), hypertension, seizures, wsr-jrtwbgb-hvetzjtar type 2 diabetes and GERD who presented to the [facility] ED on 12/18 with chest pain. 1. [...] Seizure disorder ? Continue home divalproex. 4. Wok-rbmbigf-dcxxqttow type 2 diabetes ? Home medication of Sitagliptin. Will monitor blood sugars here, can add on sliding scale insulin as needed. DVT prophylaxis: Heparin drip CODE STATUS: Full code, verified Expected disposition: Home, tomorrow Total clinical time spent by myself addressing the patient's medical issues, reviewing all the data, and collaborating with patient's care team: 55 minutes. Charges/Coding Visit Charges Inpatient E&M: 68413 Init Hosp L2 12/18/22 1638 <Electronically signed by Edwin Kaplan DO> Cosigner Signature (if applicable): CC: Dr. Edwin Kaplan DO; Dr. Mayda Garcia MD~ Signed [facility] Work Phone: 1(178) 505-468508-17-2023 Discharge summary Author Jossue Boyd [facility] December 18, 2022 8:57am Note Date/Time December 18, 2022 5: 38am [facility] Medical Records Department [address] [place] [address] Emergency Department Summary 12/18/22 MR#: [id number] Acct: [id number] Name: LACY ALVARADO Rep #:[id number] 2 : 1950 72 From: Turner Armendariz [...] surgery. No history of PE or DVT. [facility] Medical History (Updated 12/18/22 @ 06:[address] Turner Armendariz, DO) Abdominal pain Acute back pain Anemia Arthritis Atherosclerotic heart disease of [place] coronary artery without angina pectoris Cardiology follow-up [...] mg/mL subcutaneous syringe (Prolia) 60 mg subcut [id number] #1 mL 12/11/22 [Rx Last Taken Unknown] [...] coronary artery disease. 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 EKG obtained on arrival shows sinus rhythm [...] 43.9 L Lymph % (Auto) 45.0 H Crawford % (Auto) 8.1 Eos % (Auto) 2.4 [...] Prolia 60 mg/mL syringe 60 mg subcut [id number] Qty: 1 2RF Primary Care Provider: Mayda Garcia Referrals: Mayda Garcia MD [Primary Care Provider] - What to do if you have Problems For any increased pain, shortness of breath, bleeding, nausea or vomiting, chestpain, or any unexpected problems, contact your Primary Care Provider. Call [facility] ([phone]) or report to the closest Emergency Room. [...] cc: Dr. Mayda Garcia MD ~* Signed [facility] Work Phone: 1(930) 206-553308-17-2023 Discharge summary Author Jossue Body [facility] December 18, 2022 8:57am Note Date/Time December 18, 2022 5: 38am [facility] Medical Records Department [address] [place] [address] Emergency Department Summary 12/18/22 MR#: [id number] Acct: [id number] Name: LACY ALVARADO Rep #:[id number] 2 : 1950 72 From: Turner Armendariz [...] surgery. No history of PE or DVT. [facility] Medical History (Updated 12/18/22 @ 06:[address] Turner Armendariz, DO) Abdominal pain Acute back pain Anemia Arthritis Atherosclerotic heart disease of [place] coronary artery without angina pectoris Cardiology follow-up [...] mg/mL subcutaneous syringe (Prolia) 60 mg subcut [id number] #1 mL 12/11/22 [Rx Last Taken Unknown] [...] coronary artery disease. 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 EKG obtained on arrival shows sinus rhythm [...] 43.9 L Lymph % (Auto) 45.0 H Crawford % (Auto) 8.1 Eos % (Auto) 2.4 Baso % (Auto) 0.4 Absolute Neuts (auto) 2.2 Absolute Lymphs (auto) 2.22 Nucleated RBC % 0 D-Dimer Quant (PE/DVT) 0.31 Radiography Diagnostic Testing: Clinical Impression(s) from Imaging Studies Chest X-Ray 12/18/22 05:36 IMPRESSION: No radiographic evidence of acute cardiopulmonary disease. Electronically Signed: Flor Flynn MD at 6:39 EDT Reading Location ID and State: [facility] / [place] Tel , Service support , 1 view [...] Prolia 60 mg/mL syringe 60 mg subcut [id number] Qty: 1 2RF Primary Care Provider: Mayda Garcia Referrals: Mayda Garcia MD [Primary Care Provider] - What to do if you have Problems For any increased pain, shortness of breath, bleeding, nausea or vomiting, chestpain, or any unexpected problems, contact your Primary Care Provider. Call [facility] ([phone]) or report to the closest Emergency Room. [...] cc: Dr. Mayda Garcia MD ~* Signed [facility] Work Phone: 1([phone]) 612-545404-13-[address] Freeman [facility] August 14, 2022 1:07am Note Date/Time August 13, 2022 10: 30pm [facility] Medical Records Department [address] [place] [address] Emergency Department Summary 08/13/22 MR#: [id number] Acct: [id number] Name: LACY ALVARADO Rep #:[id number] 9 : 1950 71 From: Tin Freeman [...] in the past. 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 She complains of headache, and states that she does not usually have a headacheafter seizure. No fever, chills. PFSH PFS Medical History Abdominal pain Acute back pain Anemia Arthritis Atherosclerotic heart disease of [place] coronary artery without angina pectoris Cardiology follow-up [...] mg/mL subcutaneous syringe (Prolia) 60 mg subcut [id number] #1 mL 05/20/22 [Rx Last Taken Unknown] [...] 45.6 L Lymph % (Auto) 44.1 H Crawford % (Auto) 7.4 Eos % (Auto) 2.1 [...] Prolia 60 mg/mL syringe 60 mg subcut [id number] Qty: 1 0RF atorvastatin 80 mg tablet [...] your Primary Care Provider. Call [facility] ([phone]) or report to the closest Emergency Room. Call 911 if necessary. 08/14/22 010 <Electronically signed by Tin Freeman DO> Cosigner Signature (if applicable): CC: Dr. Mayda Garcia MD ~ Signed [facility] Work Phone: [phone]) 771-123902-04-[address] Patel [facility] June 07, 2022 6:15pm Note Date/Time June 07, 2022 6 :12pm [facility] Medical Records Department [address] [place] [address] Emergency Department Summary 06/07/22 MR#: [id number] Acct: [id number] Name: LACY ALVARADO Rep #:[id number] 2 : 1950 71 From: Ezekiel Patel [...] Immunization: 5-10 years Recent Illness/Hospitalization: Yes PFSH [facility] Medical History Abdominal pain Acute back pain Anemia Arthritis Atherosclerotic heart disease of [place] coronary artery without angina pectoris Cardiology follow-up [...] mg/mL subcutaneous syringe (Prolia) 60 mg subcut [id number] #1 mL 05/20/22 [Rx Last Taken Unknown] [...] II-XII intact bilaterally and moves all extremities [place] Coma Scale: document GCS findings Spontaneous Oriented [...] Prolia 60 mg/mL syringe 60 mg subcut [id number] Qty: 1 0RF Primary Care Provider: Mayda [...] your Primary Care Provider. Call [facility] ([phone]) or report to the closest Emergency Room. Call 911 if necessary. 06/07/221814 <Electronically signed by Ezekiel Patel MD> Cosigner Signature (if applicable): CC: Dr. Mayda Garcia MD ~ Signed [facility] Work Phone: 1(946) 631-656602-04-2023 Hospital Discharge instructions Additional Instructions Apply ice to your left chest wall and shoulder 6-[facility] a [facility] Work Phone: Discharge summary Author Edwin gerber [facility] December 19, 2022 4:23pm Note Date/Time December 19, 2022 3: 41pm [facility] Medical Records Department [address] [place] [address] Discharge Summary 12/19/22 1541 MR#: [id number] Acct: [id number] Name: LACY ALVARADO Rep #:[id number] : 1950 72 From: Edwin Mo hugh SINGH PCP: Dr. Mayda Garcia MD Status:A DM DELFIN Location: [place] [address] Providers Date of Admission: 12/18/22 Date of [...] mg/mL subcutaneous syringe (Prolia) 60 mg subcut [id number] #1 mL 12/11/22 pantoprazole 40 mg tablet,delayed [...] Plavix (follows w/ Dr. Johnson), hypertension, seizures, uhe-qjgzofe-uaznwylnq type 2 diabetes and GERD who presented to the [facility] ED on 12/18 with chest pain. She [...] for an outpatient appointment with them in [place] early next week. She tolerated the catheterization well and was stable afterwards. A transthoracic echocardiogram was done post catheterization, read was pending on discharge. She was discharged home in stable condition. Discharge diagnoses: Chest pain, improved CAD s/p stenting Hypertension Seizures Dyg-yjxbfyq-dlxjisbbl type 2 diabetes GERD PCP follow-up: Patient will be following up with cardiothoracic surgery in [facility] discuss options for intervention on her [...] Follow-up with the cardiothoracic surgery team at [place] as discussed. Discharge Orders/Prescriptions Prescriptions: New isosorbide [...] Prolia 60 mg/mL syringe 60 mg subcut [id number] Qty: 1 2RF Discontinued isosorbide mononitrate 30 [...] Self Care Charges/Coding Visit Charges Inpatient E&M: 17547 Disch Hosp >30min 12/19/22 1623 <Electronically signed by Edwin Kaplan DO> Cosigner Signature (if applicable): CC: Dr. Edwin Kaplan DO; Dr. Mayda Garcia MD~ Signed [facility] Work Phone: Evaluation note* Diagnosis Onset Date Resolution Status Osteoporosis acute Cerebrovascular disease cullet crusher shaun Epilepsy, unspecified, not i ntractable, without status epilepticus chronic Occipital neuralgia chronic Cerebrovascular disease cullet crusher shaun Epilepsy, unspecified, not i ntractable, without status epilepticus chronic Occipital neuralgia chronic [facility] Work Phone: Evaluation note* Diagnosis Onset Date Resolution Status Cerebrovascular disease cullet crusher shaun Epilepsy, unspecified, not i ntractable, without status epilepticus chronic Occipital neuralgia chronic BMI 32.0-32.9,adult acute LINA (obstructive sleep apnea) chronic Health care maintenance acut e Right shoulder pain acute Essential (primary) hypertension chronic Seizures chronic Type 2 diabetes mellitus chr onic [facility] Work Phone: Evaluation note* Diagnosis Onset Date Resolution Status Cerebrovascular disease cullet crusher shaun Epilepsy, unspecified, not i ntractable, without status epilepticus chronic Occipital neuralgia chronic BMI 32.0-32.9,adult acute LINA (obstructive sleep apnea) chronic Health care maintenance acut e Right shoulder pain acute Essential (primary) hypertension chronic Seizures chronic Type 2 diabetes mellitus chr onic Cough acute Chest pain acute Intractable pain acute Neck pain acute [facility] Work Phone: Evaluation note* Diagnosis Onset Date Resolution Status Cerebrovascular disease cullet crusher shaun Epilepsy, unspecified, not i ntractable, without [...] stent placement March 222017 chronic Hyperlipidemia chronic [facility] Work Phone: Evaluation note* Diagnosis Onset Date [...] stent placement March 222017 chronic Hyperlipidemia chronic [facility] Work Phone: Evaluation note* Diagnosis Onset Date Resolution Status Cough acute Chest pain acute Intractable pain acute Neck pain acute Cervical radiculopathy acute Left shoulder pain acute Neck pain acute Left upper extremity numbness acute Essential (primary) hypertension chronic History of coronary artery stent placement March 222017 chronic Hyperlipidemia chronic Obesity acute LINA (obstructive sleep apnea) chronic [facility] Work Phone: Evaluation note* Diagnosis Onset Date Resolution Status Obesity acute LINA (obstructive sleep apnea) chronic Seizures chronic Exposure to COVID-19 virus a cute [facility] Work Phone: Evaluation note* Diagnosis Onset Date Resolution Status Exposure to COVID-19 virus a cute Pain in left upper arm acute Essential (primary) hypertension chronic Seizures chronic Type 2 diabetes mellitus chr onic Osteoporosis acute [facility] Work Phone: Evaluation note* Diagnosis Onset Date [...] chronic Type 2 diabetes mellitus chr onic [facility] Work Phone: Evaluation note* Diagnosis Onset Date Resolution Status Memory changes acute Epilepsy, unspecified, not i ntractable, without status epilepticus chronic Memory loss acute Epilepsy, unspecified, not i ntractable, without status epilepticus chronic Right hip pain acute Essential (primary) hypertension chronic Type 2 diabetes mellitus chr onic Osteoarthritis of right knee noneactive [facility] Work Phone: Evaluation note* Diagnosis Onset Date [...] disease acute History of hypertension acut e [facility] Work Phone: Evaluation note* Diagnosis Onset Date [...] stent placement March 222017 chronic Hyperlipidemia chronic [facility] Work Phone: Evaluation note* Diagnosis Onset Date [...] stent placement March 222017 chronic Hyperlipidemia chronic [facility] Work Phone: Evaluation note* Diagnosis Coronary artery disease due to calcified coronary lesion- Primary Atherosclerotic heart disease of [place] coronary artery without angina pectoris documented [facility]* Diagnosis CAD in [place] artery- Primary Preoperative clearance Unspecified pre-operative examination Atherosclerotic heart disease of [place] coronary artery without angina pectoris documented in this encounter [facility]* Diagnosis Preoperative clearance Unspecified pre-operative examination Atherosclerotic heart disease of [place] coronary artery without angina pectoris documented in this encounter [facility]* Diagnosis Coronary artery disease due to calcified coronary lesion- Primary documented in this encounter [facility]* Diagnosis CAD in [place] artery- Primary CAD in [place] artery Coronary artery disease involving coronary bypass graft, unspecified whether angina present, unspecified whether [place] or transplanted heart S/P CABG (coronary artery bypass graft) Postsurgical aortocoronary bypass status documented in this encounter [facility] Diagnosis Onset Date Resolution Status [...] arthritis acute Stroke acute Hyperlipidemia chronic Hypertension [facility] Work Phone: Evaluation note* Diagnosis S/P CABG (coronary artery bypass graft)- Primary Postsurgical aortocoronary bypass status documented in this encounter [facility] HealthEvaluation note* Diagnosis Onset Date Resolution [...] Tachycardia acute Essential (primary) hypertension chronic Hyperlipidemia [facility] Work Phone: Evaluation note* Diagnosis Onset Date [...] artery bypass graft chronic Hyperlipidemia chronic Hypertension [facility] Work Phone: Evaluation note* Diagnosis Onset Date [...] Fatigue acute Osteoarthritis of right knee noneactive [facility] Work Phone: Evaluation note* Diagnosis Onset Date [...] graft chronic Obesity chronic Obstructive sleep apnea cullet crusher shaun Chest wall tenderness chroni c Coronary artery disease cullet crusher shaun Essential (primary) hypertension chronic GERD (gastroesophageal reflux disease) chronic Osteoporosis chronic Rheumatoid arthritis chronic Type 2 diabetes mellitus chr onic [facility] Work Phone: Evaluation note* Diagnosis Onset Date Resolution Status Fatigue acute Fatigue acute Osteoarthritis of right knee noneactive History of coronary artery bypass graft chronic Obesity chronic Obstructive sleep apnea cullet crusher shaun Chest wall tenderness chroni c Coronary artery disease cullet crusher shaun Essential (primary) hypertension chronic GERD (gastroesophageal reflux disease) chronic Osteoporosis chronic Rheumatoid arthritis chronic Type 2 diabetes mellitus chr onic Fatigue acute Abdominal pain chronic [facility] Work Phone: Evaluation note* Diagnosis Onset Date Resolution Status Fatigue acute Fatigue acute Osteoarthritis of right knee noneactive History of coronary artery bypass graft chronic Obesity chronic Obstructive sleep apnea cullet crusher shaun Chest wall tenderness chroni c Coronary artery disease cullet crusher shaun Essential (primary) hypertension chronic GERD (gastroesophageal reflux disease) chronic Osteoporosis chronic Rheumatoid arthritis chronic Type 2 diabetes mellitus chr onic Fatigue acute Abdominal pain chronic Abdominal pain chronic [facility] Work Phone: Evaluation note* Diagnosis Onset Date Resolution Status Fatigue acute Osteoarthritis of right knee noneactive History of coronary artery bypass graft chronic Obesity chronic Obstructive sleep apnea cullet crusher shaun Chest wall tenderness chroni c Coronary artery disease cullet crusher shaun Essential (primary) hypertension chronic GERD (gastroesophageal reflux disease) chronic Osteoporosis chronic Rheumatoid arthritis chronic Type 2 diabetes mellitus chr onic Fatigue acute Abdominal pain chronic Abdominal pain chronic [facility] Work Phone: Evaluation note* Diagnosis Onset Date Resolution Status Fatigue acute Osteoarthritis of right knee noneactive History of coronary artery bypass graft chronic Obesity chronic Obstructive sleep apnea cullet crusher shaun Chest wall tenderness chroni c Coronary artery disease cullet crusher shaun Essential (primary) hypertension chronic GERD (gastroesophageal reflux disease) chronic Osteoporosis chronic Rheumatoid arthritis chronic Type 2 diabetes mellitus chr onic Fatigue acute Abdominal pain chronic Abdominal pain chronic Osteoporosis chronic [facility] Work Phone: Hospital Discharge instructions Additional Instructions Discharge home 01/26/2023, pending appeal, [facility] PT/OT/SN, Front wheeled walker, bedside commode.[facility] Work Phone: Hospital Discharge instructions Additional Instructions EKG normal cardiac workup negative. Chest CT discussed with radiologist no concern for fracture. Follow-up with your doctor. Take medications as prescribed.[facility] Work Phone: Hospital Discharge instructions Additional Instructions Ice to your chest wall to decrease pain and bruising. The doctors saw you yesterday wrote for a narcotic pain medication which she can garbage pick up man from the pharmacy and use. Pain. Follow-up with your doctor if not improving.[facility] Work Phone: Reason for referral (narrative)No reason for referral information [facility] Work Phone: Summary Purpose Family [...] No October 25, 2021 2:03pm Power of Chro No October 25 2 2:03pm Advance Directive Response Recorded Date/ Time Name of Medical Power of Chro bhupinder barakat November 28, 2021 7:50pm Advance Directives No September 26 1 1:14pm Living Will Yes November 28, 2021 7:50pm Power of Chro Yes November 28 2 7:50pm Advance Directive Response Recorded Date/ Time Name of Medical Power of Chro bhupinder barakat November 28, 2021 7:50pm Advance Directives No September 26 1:14pm Living Will No December 17 3:55am Power of Chro No December 17 3:55am Advance Directive Response Recorded Date/ Time Name of Medical Power of Chro bhupinder barakat November 28, 2021 7:50pm Name of Medical Power of Chro bhupinder barakat January 02, 2022 12:50pm Advance Directives No September 26 1:14pm Living Will Yes January 02 12:50pm Power of Chro Yes January 02, 2022 12:50pm Advance Directive Response Recorded Date/ Time Name of Medical Power of Chro bhupinder barakat November 28, 2021 6:50pm Name of Medical Power of Chro bhupinder barakat January 02, 2022 11:50am Advance Directives No September 26 12:14pm Living Will No March 14 5:43pm Power of Chro No March 14, 2022 5:43pm Advance Directive Response Recorded Date/ Time Name of Medical Power of Chro bhupinder barakat January 02, 2022 11:50am Advance Directives No September 26 12:14pm Living Will No March 29 10:41am Power of Chro No March 29, 2022 10:41am Advance Directive Response Recorded Date/ Time Advance Directives No September 26 12:14pm Living Will No March 29 10:41am Power of Chro No March 29, 2022 10:41am Advance Directive Response Recorded Date/ Time Name of Medical Power of Chro BHUPINDER MARTÍNEZ June 06, 2022 10:51am Advance Directives No September 26 12:14pm Living Will No June 07 6:10pm Power of Chro No June 07, 2022 6:10pm Advance Directive Response Recorded Date/ Time Name of Medical Power of Chro BHUPINDER MARTÍNEZ June 06, 2022 11:51am Name of Medical Power of Chro Duke Barakat August 13, 2022 10:00pm Advance Directives No September 26 1:14pm Living Will Yes August 13, 2022 10:00pm Power of Chro Yes August 13 10:00pm Advance Directive Response Recorded Date/ Time Name of Medical Power of Chro Duke Barakat August 13, 2022 10:00pm Advance Directives No September 26 1:14pm Living Will Yes August 13, 2022 10:00pm Power of Chro Yes August 13 10:00pm Advance Directive Response Recorded Date/ Time Name of Medical Power of Chro Duke Barakat August 13, 2022 10:00pm Advance Directives No December 31, 2020 12:33pm Living Will Yes August 13, 2022 10:00pm Power of Chro Yes August 13 10:00pm Advance Directive Response Recorded Date/ Time Name of Medical Power of Chro BHUPINDER SENIOR December 18, 2022 5:26am Advance Directives No December 31, 2020 12:33pm Living Will Yes December 18 5:26am Power of Chro Yes December 18, 023 5:26am Advance Directive Response Recorded Date/ Time Name of Medical Power of Chro BHUPINDER SENIOR December 18, 2022 5:26am Advance Directives No December 31, 2020 12:33pm Living Will Yes December 18 10:41am Power of Chro No December 18, 2 023 10:41am Latest Code Status on File Code Status Date Activated Date Inactivated Comments Full Code 01/01/2023 5:45 AM Latest Code Status on File Code Status Date Activated Date Inactivated Comments Full Code 01/01/2023 5:45 AM 01/11/2023 4:53 PM Healthcare Agents on File Name Relationship Healthcare Agent Relationshi p Communication Bhupinder Gomez 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 Advance Directives and Livin g Will 01/12/2023 1:40 PM Latest Code Status on File Code Status Date Activated Date Inactivated Comments Full Code 01/01/2023 5:45 AM 01/11/2023 4:53 PM Healthcare Agents on File Name Relationship Healthcare Agent [facility] Communication Bhupinder Asc[facility] Care Agent Advance Directive Response Recorded Date/ Time Advance Directives No February 02, 2023 11:35am Living Will Yes February 02 11:35am Power of Chro Yes February 02 11:35am Name of Medical Power of Chro BHUPINDER SENIOR December 18, 2022 5:26am Name of Medical Power of Chro Bhupinder Roblesyvette rivera iece January 13, 2023 2:24pm Advance Directive Response Recorded Date/ Time Advance Directives No February 02, 2023 10:35am Living Will Yes February 02 10:35am Power of Chro Yes February 02 10:35am Name of Medical Power of Chro BHUPINDER SENIOR December 18, 2022 4:26am Name of Medical Power of Chro Bhupinder Roblesjazlynbutch n iece January 13, 2023 1:24pm Advance Directive Response Recorded Date/ Time Advance Directives No February 02, 2023 10:35am Living Will Yes February 02 10:35am Power of Chro Yes February 02 10:35am Advance Directive Response Recorded Date/ Time Advance Directives on File No 2023 9:39am Advance Directives No February 02, 2023 10:35am Living Will Yes June 01 9:57am Power of Chro Yes June 01, 2023 9:39am Advance Directive Response Recorded Date/ Time Advance Directives on File No 2023 10:39am Advance Directives No February 02, 2023 11:35am Living Will Yes June 01 10:57am Power of Chro Yes June 01, 2023 10:39am Advance Directive Response Recorded Date/ Time Living Will Yes February 02 11:35am Power of Chro Yes February 02 11:35am Living Will Yes November 15, 2023 3:30pm Power of Chro No November 14 3:30pm Living Will No July 14, 2024 5:08pm Power of Chro No July 14 5:08pm Advance Directives No February 02, 2023 11:35am Advance Directive Response Recorded Date/ Time Living Will Yes February 02 11:35am Power of Chro Yes February 02 11:35am Living Will Yes November 15, 2023 3:30pm Power of Chro No November 14 3:30pm Living Will No July 14, 2024 5:08pm Power of Chro No July 14 5:08pm Living Will No July 15, 2024 1:25pm Power of Chro No July 15 1:25pm Advance Directives No February 02, 2023 11:35am Advance Directive Response Recorded Date/ Time Living Will Yes November 15, 2023 3:30pm Do you have a Healthcare Power of Chro? No November 15, 2023 3:30pm Living Will No July 14, 2024 5:08pm Do you have a Healthcare Power of Chro? No July 14, 2024 5:08pm Living Will No July 15, 2024 1:25pm Do you have a Healthcare Power of Chro? No July 15, 2024 1:25pm Do you have a Healthcare Power of Chro? No September 16, 2024 3:51pm Advance Directives No February 02, 2023 11:35am Advance Directive Response Recorded Date/ Time Living Will No July 14, 2024 5:08pm Do you have a Healthcare Power of Chro? No July 14, 2024 5:08pm Living Will No July 15, 2024 1:25pm Do you have a Healthcare Power of Chro? No July 15, 2024 1:25pm Do you have a Healthcare Power of Chro? No September 16, 2024 3:51pm Advance Directives [...] ARM RT ARM PAIN SCREENING general illness [facility] ER FU CHEST PAIN CHEST PAIN CHEST [...] ARM RT ARM PAIN SCREENING general illness [facility] ER FU CHEST PAIN CHEST PAIN CHEST PAIN CHEST PAIN [facility] FU 1 Y FU Reason for Visit [...] ARM RT ARM PAIN SCREENING general illness [facility] ER FU CHEST PAIN CHEST PAIN CHEST PAIN CHEST PAIN CHEST PAIN [facility] FU 1 Y FU CERVICAL RADICULOPATHY. RX [...] ARM RT ARM PAIN SCREENING general illness [facility] ER FU CHEST PAIN CHEST PAIN CHEST PAIN CHEST PAIN CHEST PAIN [facility] FU 1 Y FU CERVICAL RADICULOPATHY. RX HERE 4 M FU SEIZURE Reason for Visit Cough Chest pain Intractable pain Neck pain Cervical radiculopathy Left shoulder pain Neck pain Left upper extremity numbness Essential (primary) hypertension History of coronary artery stent placement Hyperlipidemia Obesity LINA (obstructive sleep apnea) Chief Complaint RT ARM PAIN SCREENING general illness [facility] ER FU CHEST PAIN CHEST PAIN CHEST PAIN CHEST PAIN CHEST PAIN [facility] FU 1 Y FU CERVICAL RADICULOPATHY. RX HERE 4 M FU SEIZURE FALL Reason for Visit Cough Chest pain Intractable pain Neck pain Cervical radiculopathy Left shoulder pain Neck pain Left upper extremity numbness Essential (primary) hypertension History of coronary artery stent placement Hyperlipidemia Obesity LINA (obstructive sleep apnea) Chief Complaint CERVICAL RADICULOPAT HY. RX HERE 4 M FU SEIZURE FALL [facility] ER FU Wants Covid Test LABSPEC Reason for Visit Obesity LINA (obstructive sleep apnea) Seizures Exposure to COVID-19 virus Chief Complaint CERVICAL RADICULOPAT HY. RX HERE 4 M FU SEIZURE FALL [facility] ER FU Wants Covid Test LABSPEC seizure [...] 8:51a m Atherosclerotic heart diseas e of [place] coronary artery without angina pectoris September 19, [...] 8:51a m Atherosclerotic heart diseas e of [place] coronary artery without angina pectoris September 19, [...] 8:51a m Atherosclerotic heart diseas e of [place] coronary artery without angina pectoris September 19, [...] 8:51a m Atherosclerotic heart diseas e of [place] coronary artery without angina pectoris September 19, [...] CABG (coronary artery bypass graft) Kassy Tabares, POLLUTION CONTROL CHEMIST - COILED TUBING OPERATOR [address] [address] Referral ID Status Reason Start Date Expiration Date Visits Re quested Visits Authorized [id number] Closed 1 1 Additional Source Comments INFORMATION SOURCE (unrecogn ized section and content) DATE CREATED AUTHOR 10/27/2017 [facility] DATE CREATED AUTHOR AUTHOR'S ORGANIZ ATION 10/27/2017 [facility] DATE CREATED AUTHOR AUTHOR'S ORGANIZ ATION 06/21/2018 [facility] DATE CREATED AUTHOR AUTHOR'S ORGANIZ ATION 01/07/2023 [facility] DATE CREATED AUTHOR AUTHOR'S ORGANIZ ATION 11/11/2024 [facility] Goals (unrecognized section and content) Goals may [...] Provider, Refer ring Provider Active Mc LÓPEZ, RENE Attending Provider Active Team Status: Active Member [...] Dr. Bhanu Milian MD Other Provider Active Food Beverage Server Relationship Specialty Start Date End Date Noris Garciarosemary Raza [address] [id number] PCP - General Internal Medicine 12/23/22 Food Beverage Server Relationship Specialty Start Date End Date Noris Garciarosemary Raza [address] [id number] PCP - General Internal Medicine 12/23/22 Food Beverage Server Relationship Specialty Start Date End Date Noris Garciarosemary Raza [address] [place] [address] PCP - General Internal Medicine 12/23/22 Food Beverage Server Relationship Specialty Start Date End Date Mayda Garcia [address] [place] [address] PCP - General Internal Medicine 12/23/22 Food Beverage Server Relationship Specialty Start Date End Date aMyda Garcia [address] [place] [address] PCP - General Internal Medicine 12/23/22 Food Beverage Server Relationship Specialty Start Date End Date Mayda Garcia [address] [place] [address] PCP - General Internal Medicine 12/23/22 Team Status: Inactive Member Role Status Dates Dr. Mayda Garcia MD Primary Care Provider Active Dr. Robbin Carlos MD Admit Provider, Attending Provid er Active Food Beverage Server Relationship Specialty Start Date End Date Mayda Garcia [address] [place] [address] PCP - General Internal Medicine 12/23/22 Team Status: Inactive Member Role Status Dates Dr. Mayda Garcia MD Primary Care Provider Active Dr. Pepe Ruiz MD Attending Provider, Referring Provider Active Team Status: Inactive Member Role Status Dates Dr. Mayda Garcia MD Primary Care Provider, Refer ring Provider Active Carlos Bravo STOCK BLENDER, STOCK BLENDER-C Attending Provider Active Team Status: Inactive Member Role Status Dates Dr. Mayda Garcia MD Primary Care Provider Active Carlos Bravo STOCK BLENDER, STOCK BLENDER-C Attending Provider, Referring Pro vider Active Team Status: Active Member Role Status Dates Dr. Mayda Garcia MD Primary Care Provider Active Dr. Winston Johnson MD Attending Provider Active Team Status: Inactive Member Role Status Dates Dr. Mayda Garcia MD Primary Care Provider, Refer ring Provider Active Vanita Venegas STOCK BLENDER, STOCK BLENDER-C Attending Provider Active Team Status: Active Member Role Status Dates Dr. Mayda Garcia MD Primary Care Provider Active Dr. Winston Johnson MD Attending Provider, Referring Pro vider Active Team Status: Inactive Member Role Status Dates Dr. Mayda Garcia MD Primary Care Provider Active Vanita Venegas STOCK BLENDER, STOCK BLENDER-C Attending Provider, Referrin g Provider Active Team [...] MD Primary Care Provider Active Vanita Venegas STOCK BLENDER, STOCK BLENDER-C Attending Provider, Referrin g Provider Active Team [...] 2024 End: April 20, 2024 Vanita Venegas STOCK BLENDER, STOCK BLENDER-C Attending Provider Active Start: April 20, 2024 End: April 20, 2024 Vanita Venegas STOCK BLENDER, STOCK BLENDER-C Referring Provider Active Start: April 20, 2024 [...] Active Start: April 25, 2024 Vanita Venegas STOCK BLENDER, STOCK BLENDER-C Referring Provider Active Start: April 25, 2024 Vanita Venegas STOCK BLENDER, STOCK BLENDER-C Other Provider Active Start: April 25, 2024 [...] 2024 End: September 28, 2024 Vanita Venegas STOCK BLENDER, STOCK BLENDER-C Attending Provider Active Start: September 28, 2024 [...] 2024 End: October 20, 2024 Vanita Venegas STOCK BLENDER, STOCK BLENDER-C Attending Provider Active Start: October 20, 2024 End: October 20, 2024 Vanita Venegas STOCK BLENDER, STOCK BLENDER-C Referring Provider Active Start: October 20, 2024 [...] End: September 28, 2024 Vanita Venegas NP, STOCK BLENDER-C Attending Provider Active Start: September 28, 2024 [...] 2024 End: October 20, 2024 Vanita Venegas STOCK BLENDER, STOCK BLENDER-C Attending Provider Active Start: October 20, 2024 End: October 20, 2024 Vanita Venegas NP, STOCK BLENDER-C Referring Provider Active Start: October 20, 2024 [...] To Contact Diagnoses 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 [I25.10] Procedures [place] CABG W/ARTERIAL GRAFT THREE ARTERIAL GRAFTS [place] ECHO TRANSESOPHAG R-T 2D W/PRB IMG ACQUISJ I&R CABG AND SIS Echocardiography transesophageal real-time RoseAzam fenton MD [address] [place] [address], [address] [place] [address] [facility] [place] [address] [place] [address] Referral ID Status Reason Start Date Expiration Date Visits Re quested Visits Authorized [id number] 1 1 Reason Comments Post-op Scheduled Active [...] Thu01/04/23 at 0900 1006 (Given - Provider: Hermiina Tom RN)2008 (Given - Provider: Nilsa Hills [...] Busby RN) 0534 (Given - Provider: Nilsa Hilsl RN) 0600 (Given - Provider: Nilsa Hills [...] BE BASED ON THE PRIMARY CLINICAL RECORDS. [employer] [facility]. provides no warranty or guarantee of the accuracy or completeness of information in this document.
[2024-11-13 19:50] LABS: Troponin T High Sens 2 HR 18 ng/L (<=14)
--- NOTE | 2024-11-13 19:53 | EKG12_ITS ---
Test Reason : CP Blood Pressure : */* mmHG Vent. Rate : 89 BPM Atrial Rate : 89 BPM P-R Int : 140 ms QRS Dur : 70 ms QT Int : 376 ms P-R-T Axes : 61 11 45 degrees QTcB Int : 457 ms Normal sinus rhythm Normal ECG Confirmed by Aleksandr Salinas ([id number]), movie editor ADIA ARDON ([id number]) on 11/14/2024 1:06:31 PM Referred By: RU Confirmed By: Aleksandr Salinas
[2024-11-13] MEDS: Nitroglycerin SL (ED/IMG/CATH) 0.4 MG TABLET SL ×3 (20:00→20:18)
--- NOTE | 2024-11-13 20:02 | HP.PCM.HOS_ITS ---
HPI - General General Date of Service: 11/13/24 Chief Complaint: chest pain HPI Narrative NERY ALVARADO, is a 73 F who presented to [facility] ED on 11/13/2024 with chest pain. Medical history significant for CAD with stenting in 2017 and CABG x 4 in December 2022, HFpEF, obesity with LINA, seizure disorder, RA, hypertension, hyperlipidemia and neuropathy. She follows with our cardiology group, last saw them in the office in September. Reported left-sided chest pain/tenderness then and notably had been seen in the ED on 09/16 for this as well. Workup was negative for that ED visit and cardiology suspected that the pain could be nerve related from her CABG with vein harvesting. Was also thought that her anemia could be contributing to this pain. Her hemoglobin was 8.6 on 09/16 for unclear reason, as repeat hemoglobin was back to baseline at 11.2 on 09/22. Patient presents today with acute onset left-sided chest pain that began midday. She was feeling fine this morning and went to religion, but shortly after she got home and was sitting down she developed sudden onset sharp chest pain under the left breast radiating into her left arm. In the ED she was mildly hypertensive to the 160s systolic, otherwise in normal sinus rhythm and stable on room air. CBC and BMP were benign. Hemoglobin notably 11.1, at baseline. Troponin trend 9 > 18. EKG showed sinus rhythm with no acute ST changes. Chest x-ray showed mildly prominent interstitial markings concerning for pulmonary edema. Patient was given doses of IV morphine, Zofran and nitro in the ED with mild relief of pain. Given chest pain with history as above, hospitalist was contacted for admission. I saw the patient at bedside in the ED, family member was present. Patient was sitting back fairly comfortably in bed and conversing normally. She was reporting ongoing left-sided chest pain, only slightly improved from earlier today. Denies any radiation of the pain currently. Denied any shortness of breath, nausea, fevers or chills. Denies any recent URI symptoms. No other acute concerns currently. Will be admitted for further management. [facility] Medical History (Updated 11/13/24 @ 19:[address] Turner Armendariz, ) Keloid scar of skin Vertigo Chest pain Dyspnea on exertion Wears partial dentures Injury of head and neck Gastric reflux Encounter for transesophageal echo performed as part of open chest procedure History of echocardiogram History of stress test Tremor Retained suture Chest wall tenderness Fatigue Flu vaccine need Lower extremity edema History of coronary artery disease History of hypertension Left ankle pain Right hip pain Right groin pain Memory changes Left shoulder pain Cervical radiculopathy Cough Health care maintenance Right shoulder pain Therapeutic drug monitoring Osteoporosis Compression fracture of lumbar spine, non-traumatic Dysuria Dysuria Urinary frequency Acute back pain Personal history of colonic polyps GERD (gastroesophageal reflux disease) Hyperglycemia due to type 2 diabetes mellitus Wears glasses Diabetes Arthritis Anemia Non-smoker CPAP (continuous positive airway pressure) dependence Sleep apnea Shortness of breath on exertion Cardiology follow-up encounter Abdominal pain Osteoarthritis Congestive heart failure (CHF) Routine health maintenance Colon cancer screening Foreign body in stomach Seizure disorder Type 2 diabetes mellitus Diabetes mellitus type 2 in nonobese Obesity Urinary frequency Conversion disorder Non-toxic goiter Essential (primary) hypertension RIGHT FOOT HEEL SPUR Atherosclerotic heart disease of [place] coronary artery without angina pectoris Rheumatoid arthritis Diabetes type 2, controlled Hives Seasonal allergies Hyperlipidemia Chronic diastolic CHF (congestive heart failure) Home Medications ?Medication ?Instructions ?Recorded ?Last Taken ?Type multivitamin 1 tab PO DAILY vitamin 05/2012/16/22 History blood-glucose meter (True Metrix #1 ea 02/03/20 Unknow n Rx Air Glucose Meter kit) calcium citrate 200 mg PO DAILY supplement 0 05/21/20 12/16/22 History disability placard #1 ea 06/27/20 Unknown Rx aspirin 81 mg tablet,delayed 81 mg PO DAILY heart 08/0212/11/22 History release (Adult Low Dose Aspirin) blood sugar diagnostic (True #100 ea 06/17/23 Unknown Rx Metrix Glucose Test Strip) lancets 33 gauge #100 ea 06/17/23 Unknown Rx oxycodone 5 mg tablet 5 mg PO Q4H PRN PRN Pain Sco re 11/18/23 Unknown Rx 4-10 3 days #20 tabs Handicap Placard #1 ea 01/07/24 Unknown Rx denosumab 60 mg/mL subcutaneous 60 mg subcut [id number] bone health 01/19/24 Unknown Rx syringe (Prolia) #1 mL gabapentin 300 mg capsule 300 mg PO QHS #30 caps 02/13 Unknown Rx metoprolol tartrate 25 mg tablet 25 mg PO QDAY heart # 90 tabs 04/19/24 Unknown Rx hydrocodone-acetaminophen 5-325mg 1 tab PO Q6H PRN PRN Pain 3 days 07/14/24 Unknown Rx 5mg-325mg #10 TABLETS ibuprofen 600 mg tablet 600 mg PO Q6H PRN PRN pain # 20 07/14/24 Unknown Rx TABLETS hydroxychloroquine 200 mg tablet See Rx Instructions . Route 09/21/24 Unknown Rx .COMPLEX immunosuppressant #180 tabs sitagliptin phosphate 100 mg See Rx Instructions .Rout e 09/21/24 Unknown Rx tablet (Januvia) .COMPLEX diabetes #90 tabs atorvastatin 80 mg tablet 80 mg PO QHS cholesterol Unknown History neomycin 3.5 mg/g-polymyxin B 0.5 inch ophthalmic (eye ) BID 09/28/24 Unknown History 10,000 unit/g-dexameth 0.1 % eye oint divalproex 500 mg tablet,delayed 500 mg .Route .COMPLE X seizures 11/07/24 Unknown Rx release (Depakote) #90 tabs rosuvastatin 40 mg tablet 40 mg PO DAILY 11/13/24 Unkn own History Allergy/AdvReac Type Severity Reaction Status Date / Time prednisone AdvReac Severe Hives Verified 11/13/24 16:26 Family History Grandmother Alcoholism Cancer Arthritis Mother Alcoholism Diabetes blood clots Hypertension Grandfather Heart disease Sister Thyroid disorder Other Breast cancer Cervical cancer Colon cancer Surgical History History of coronary artery bypass graft History of cardiac catheterization History of left heart catheterization (09/20/18) History of coronary artery stent placement (03/22/18) History of carpal tunnel surgery History of section H/O: hysterectomy Social History household members: none housing: apartment Smoking Status: Never smoker second hand exposure: No alcohol intake: current alcohol intake frequency: holidays/special occasions only substance use type: does not use what type of physical activity do you participate in: none ROS Constitutional Constitutional: Denies chills, fatigue, fever(s) or weakness Eyes Eyes: Denies change in vision Cardiovascular Cardiovascular: Reports chest pain and edema; Denies dyspnea on exertion, lightheadedness, orthopnea or palpitations Respiratory/Chest Respiratory/Chest: Denies cough, shortness of breath at rest, shortness of breath with exertion or wheezing Gastrointestinal Gastrointestinal: Denies abdominal pain Genitourinary Genitourinary: Denies dysuria Musculoskeletal Musculoskeletal: Denies arthralgias or myalgias Neurologic Neurologic: Denies dizziness, focal weakness or headache(s) Vital Signs Vital Signs Vital Signs: 11/13/24 16:23 11/13/24 16:26 11/13/24 17:09 Temperature 98.4 F Temperature Source Oral Pulse Rate 34 L Respiratory Rate 29 H Respiratory Effort Normal Non-Labored Blood Pressure 162/77 H Blood Pressure Mean 105 Pulse Ox 100 Oxygen Delivery Method Room Air Room Air 11/13/24 17:16 11/13/24 18:00 11/13/24 19:00 Temperature Temperature Source Pulse Rate 84 81 84 Respiratory Rate 22 H 19 H 19 H Respiratory Effort Blood Pressure 148/77 H 149/76 H 155/81 H Blood Pressure Mean 100 100 105 Pulse Ox 97 98 98 Oxygen Delivery Method Room Air Room Air Room Air Physical Exam Const alert, oriented x3 and no apparent distress Constitutional Narrative: Elderly female, obese, sitting back in bed fairly comfortably and conversing normally. General Appearance: cooperative and comfortable HEENT normocephalic, head/scalp atraumatic, hearing grossly normal bilaterally, nasal mucous membranes and turbinates normal and moist oral mucous membranes Eyes PERRL, EOMs intact bilaterally and conjunctivae normal Neck full ROM Chest inspection of chest normal Resp normal respiratory effort and no use of accessory muscles Resp Narrative: Breathing comfortably on room air at rest. Mildly diminished breath sounds in bilateral lung bases with mild crackles noted, no wheezing noted. Cardio regular rate, regular rhythm, no murmurs and peripheral pulses 2+ throughout GI normal to inspection, nondistended, normoactive bowel sounds, soft to palpation, non-tender and non-distended Back/Spine normal ROM Extremity full ROM Extremity Narrative: +1-2 lower extremity pitting edema noted bilaterally. Skin no rashes or lesions noted Psych mental status grossly normal Mood & Affect: anxious Results Lab / Micro Data 11/13/24 16:05 11/13/24 16:05 Labs: Laboratory Results - last 24 hr 11/13/24 16:05: WBC 4.6, RBC 3.41 L, Hgb 11.1 L, Hct 33.3 L, MCV 97.7, MCH 32.6 H, MCHC 33.3, RDW Std Deviation 50.8 H, RDW Coeff of [place] 14.2, Plt Count 224, MPV 11.5, Immature Gran % (Auto) 0.400, Neut % (Auto) 55.5, Lymph % (Auto) 35.9, [place] % (Auto) 6.3, Eos % (Auto) 1.7, Baso % (Auto) 0.2, Absolute Neuts (auto) 2.6, Absolute Lymphs (auto) 1.65, Nucleated RBC % 0, D-Dimer Quant (PE/DVT) Cancelled, Sodium 140, Potassium 4.5, Chloride 104, Carbon Dioxide 23.9, Anion Gap 12, BUN 21 H, Creatinine 0.82, Est GFR (MDRD) Non-Af 77, BUN/Creatinine Ratio 25.2 H, Glucose 126 H, Calcium 9.0, Troponin T High Sens 9 D 11/13/24 18:15: D-Dimer Quant (PE/DVT) 0.27 11/13/24 18:20: Troponin T Hi Sens 2 Hr 18 H Imaging Radiology Impression Chest X-Ray 11/13/24 17:17 IMPRESSION: Mildly prominent interstitial markings could be the result of hypoventilatory change, pulmonary edema, or atypical infection. Reading Location: [id number] Assessment & Plan Assessment/Plan (1) Chest pain: PLAN: Plan Patient is a 73-year-old female who presented to [facility] ED on 11/13/2024 with chest pain. 1. Chest pain, ACS rule out ? Admit under observation status to PCU. Cardiology consulted. Reported acute onset left chest pain leading to presentation; however on chart review had similar ED visit in September with negative workup and cardiology suspected possible neuropathy causing this pain. Troponin trend 9 > 18, will follow-up third troponin. EKG with sinus rhythm and no ST changes. Chest x-ray with suspected mild pulmonary edema noted. NT proBNP ordered. Will continue home baby aspirin and high intensity statin. Will keep n.p.o. at midnight and defer to cardiology on consideration of stress testing versus left heart cath. Continue cardiac monitoring. Lipid panel, A1c and TSH ordered. 2. History of CAD with stenting and CABG, chronic HFpEF, hypertension, hyperlipidemia ? Follows with outpatient cardiology, last office visit in September. See HPI for further details on history. In short, had stenting in 2017 and CABG x 4 in 2022. Last echo in 11/2023 with EF 65%, no other concerning findings. Last lipid panel in September with total cholesterol 206, LDL 135, HDL 58. Repeat lipid panel ordered as above. Continue high-intensity statin. Continue home and Lopressor. Chronic medical conditions: ? Class I obesity with LINA: Follows with outpatient pulmonology. BMI 32 on admit. Complicates hospital course, care and prognosis. Continue home PAP therapy at night. ? RA: Continue home hydroxychloroquine. ? Neuropathy: Continue home gabapentin. ? Seizure disorder: Follows with outpatient neurology. Continue home divalproex. ? Osteoporosis: Continue denosumab injections every 6 months on discharge. ? Type 2 diabetes mellitus: Last A1c 6.4% in August, repeat A1c ordered as above. Blood glucose 126 on admit. Hold home sitagliptin. Will hold on insulin orders for now, can start as needed. DVT prophylaxis: Lovenox CODE STATUS: Full code, verified Expected disposition: Home, TBD Total clinical time spent by myself addressing the patient's medical issues, reviewing all the data, and collaborating with patient's care team: 75 minutes. Charges/Coding Visit Charges Inpatient E&M: 22110 Init Hosp L3
--- NOTE | 2024-11-13 20:14 | ED.RN ---
VO revceived from Dr. De Santiago to stop IV fluids
[2024-11-13 20:42] LABS: Troponin T High Sens 4 HR 10 ng/L (<=14)
--- OUTSIDE RECORDS SUMMARY | 2024-11-13 21:14 | XMS RPT_ITS | CCD ---
Author Organization [facility] CliniSyhi Care Team Providers Care Capital [employer] Specialist Name Role Phone CHRIS YAO Unavailable Unavailable [...] Unavailable TESTRAKE, MYNOR Referring Unavailable KIM, GLEN (MARINE FIRER) Referring Unavailable KIM, GLEN (MARINE FIRER) Referring Unavailable JENELLE, TILA (PT) Attending Unavailable TESTRAKE, MYNOR Referring Unavailable Dr. Mayda Garcia Primary Care Provider Dr. Mayda Garcia Attending Provider [phone] Dr. Mayda Garcia Referring Provider Jayant PRODUCTIVITY ENGINEER, PRODUCTIVITY ENGINEER-C Peggy Attending Provider Dr. Mayda Garcia Primary Care Provider [phone] Dr. Mayda Garcia Referring Provider Jayant PRODUCTIVITY ENGINEER, PRODUCTIVITY ENGINEER-C Peggy Attending Provider Venegas PRODUCTIVITY ENGINEER, PRODUCTIVITY ENGINEER-C Vanita Attending Provider Dr. Mayda Garcia Attending [...] Referring Provider Dr. Turner Armendariz Emergency Provider [facility], Dr. Villanueva Admit Provider [facility], Dr. Villanueva Attending Provider [facility], Dr. Villanueva Other Provider Alex, Dr. Montero [...] Referring Provider [phone] RENE Tobias Attending Provider [phone] Dr. Winston Johnson Attending Provider Dr. Mayda Garcia Attending Provider [phone] Dr. Turner Armendariz Emergency Provider Dr. Edwin Kaplan Admit Provider [phone] Dr. Edwin Kaplan Attending Provider Dr. Edwin Kaplan Other Provider Dr. Bhanu Milian Other Provider Dr. Bhanu Milian Attending Provider Dr. Pepe Ruiz Attending Provider Dr. Pepe Ruiz Referring Provider Roof PRODUCTIVITY ENGINEER, PRODUCTIVITY ENGINEER-C Carlos Bush Attending Provider Dr. Mayda Garcia [...] Provider Dr. Pepe Ruiz Referring Provider Roof PRODUCTIVITY ENGINEER, PRODUCTIVITY ENGINEER-C Carlos Bush Attending Provider Dr. Mayda Garcia Primary Care Provider [phone] Dr. Mayda Garcia Attending Provider [phone] Dr. Mayda Garcia Referring Provider [phone] Dr. Pepe Ruiz Attending Provider Dr. Pepe Ruiz Referring Provider Roof PRODUCTIVITY ENGINEER, PRODUCTIVITY ENGINEER-C Carlos Bush Attending Provider Dr. Winston Johnson Attending Provider Dr. Parker Pickett Attending Provider Dr. Mayda Garcia Primary Care Provider [phone] Dr. Pepe Ruiz Attending Provider Dr. Ppee Ruiz Referring Provider Dr. Mayda Garcia Attending Provider [phone] Dr. Mayda Garcia Referring Provider [phone] Shelly PRODUCTIVITY ENGINEER, PRODUCTIVITY ENGINEER-C Carlos Bush Attending Provider Theo PRODUCTIVITY ENGINEER, PRODUCTIVITY ENGINEER-C Vanita Attending Provider Dr. Mayda Garcia Primary Care Provider [phone] Dr. Winston Johnson Attending Provider Dr. Pepe Ruiz Attending Provider Dr. Pepe Ruiz Referring Provider Dr. Mayda Garcia Referring Provider [phone] Dr. Parker Pickett Attending Provider Theo PRODUCTIVITY ENGINEER, PRODUCTIVITY ENGINEER-C Vanita Attending Provider Dr. Mayda Garcia Attending [...] Ruiz MD Referring Provider [phone] Theo PRODUCTIVITY ENGINEER-CVanita Other Provider Dr. Russell Jang DO Attending Provider Kashif ZUNIGA, Dr. Fraire Other Provider Jose ZUNIGA, Dr. Brunner Attending Provider Kashif ZUNIGA, Dr. Fraire Attending Provider Kashif ZUNIGA, Dr. Fraire Referring Provider Rocio SINGH, Dr. Gtz Referring Provider Rocio SINGH, Dr. Gtz Emergency Provider Dave ZUNIGA, Dr. Washington Emergency Provider Jose ZUINGA, Dr. Brunner Primary Care Provider Jose ZUNIGA, [...] Dr. Azam Frey DO Attending Provider Theo PRODUCTIVITY ENGINEER-C, Vanita Attending Provider Jose ZUNIGA, Dr. Brunner Primary Care Provider Jose ZUNIGA, Dr. Brunner Attending Provider Jose ZUNIGA, Dr. Brunner Referring Provider Theo PRODUCTIVITY ENGINEER-C, Vanita Referring Provider Jose ZUNIGA, Dr. Brunner Primary Care Provider Sara ZUNIGA, Dr. Cantu Attending Provider [phone] Ulisses Chan Attending Unavailable Oleghe, Efewongbe Primary [...] Care Unavailable Ulisses Chan Attending Unavailable Theo PRODUCTIVITY ENGINEER, Vanita Attending Unavailable Theo PRODUCTIVITY ENGINEER, Vanita Referring Unavailable Oleghe, Efewongbe Primary Care Unavailable Theo PRODUCTIVITY ENGINEER, Vanita Attending Unavailable Theo PRODUCTIVITY ENGINEER, Vanita Referring Unavailable Oleghe, Efewongbe Primary Care [...] Unavailable Oleghe, Efewongbe Primary Care Unavailable Venegas PRODUCTIVITY ENGINEER, Vanita Referring Unavailable Oleghe, Efewongbe Primary Care Unavailable Theo PRODUCTIVITY ENGINEER, Vanita Attending Unavailable Oleghe, Efewongbe Primary Care Unavailable Oleghe, Efewongbe Referring Unavailable Oleghe, Efewongbe Attending Unavailable Oleghe, Efewongbe Primary Care Unavailable Raullanki, Yee Referring Unavailable Yee Rowland Attending Unavailable Mynor Miller Referring Unavailable Oleghe, Efewongbe Primary Care Unavailable Mynor Miller Attending Unavailable Aleksandr Serra Referring Unavailable Oleghe, Efewongbe Primary Care Unavailable Aleksandr Serra Attending Unavailable Theo PRODUCTIVITY ENGINEER, Vanita Attending Unavailable Theo GILLESPIE, Vanita Referring Unavailable Oleghe, Efewongbe Primary Care Unavailable Pepe Ruiz Attending Unavailable Oleghe, Efewongbe Primary Care Unavailable Pepe Ruiz Referring Unavailable Oleghe, Efewongbe Primary Care Unavailable Pepe Ruiz Attending Unavailable Oleghe, Efewongbe Referring Unavailable Theo PRODUCTIVITY ENGINEER, Vanita Attending Unavailable Oleghe, Efewongbe Primary Care [...] Care Unavailable Agus Mg Attending Unavailmax Venegas PRODUCTIVITY ENGINEER, Vanita Attending Unavailable Oleghe, Efewongbe Primary Care Unavailable Oleghe, Efewongbe Referring Unavailable Theo PRODUCTIVITY ENGINEER, Vanita Referring Unavailable Theo PRODUCTIVITY ENGINEER, Vanita Consulting Unavailable Oleghe, Efewongbe Primary Care [...] Propensity to adverse reactions (disorder) 4 [facility] Repository (20 sources) predniSONE Drug Allergy 2 Nausea, Hives [facility] (8 sources) Prednisone Allergy to substance 7 Hives, Nausea And Vomiting [facility] (1 source) predniSONE Drug Allergy 5 [facility] Repository Medications Current Medications Medication Drug Class(es) [...] & On Unit 20 ml albumin human, [facility] 250 mg/ml injection (2 sources) Human Serum [...] mg docusate sodium 50 mg / sennosides, [facility] 8.6 mg oral tablet (1 source) Start: [...] 2021 1:00am 0.5 ml heparin sodium, porcine 27693 unt/ml prefilled syringe (1 source) Unfractionated Heparin, [...] Start: 02-23-2013 End: 04-07-2013 polyethylene glycol 3350 26049 mg powder for oral solution (20 sources) [...] Discontinued (Stop taking at discharge) triamcinolone acetonide 0.29892 mg/mg topical ointment (20 sources) Corticosteroid Start: [...] disease (20 sources) Atherosclerotic heart disease of [place] coronary artery without angina pectoris; Translations: [Coronary [...] monitoring] 01-13-2022 Episodic Other aftercare (2 sources) [facility] (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 of insulin; Translations: [[facility] (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 of insulin (HCC)] Onset: 12-29-2022 [...] Neurology Visit Reporton Neurology Visit Report Normal [facility] Office Visit Reporton 2024 Office Visit Report Normal [facility] Pulmonary Visit Reporton Pulmonary Visit Report Normal [facility] RUBI w/ Reflex Mult Confirmon 09-27-2024 ANTI-DNA (DS)AB TNP Normal [facility] Comment on above: Performed By: #### L 101.9900, L505.7010, L500.2500, L100.0100, L3100.5450, L501.6710 ####[facility] [address] [place], [address] ANTI-SS-A TNP Normal [facility] Comment on above: Performed By: #### L 101.9900, L505.7010, L500.2500, L100.0100, L3100.5450, L501.6710 ####[facility] [address] [place], [address] ANTI-SS-B TNP Normal [facility] Comment on above: Performed By: #### L 101.9900, L505.7010, L500.2500, L100.0100, L3100.5450, L501.6710 ####[facility] [address] [place], [address] Absolute lymphocyte countOrd ered By: Mayda Garcia on 09-22-2024 Lymphocytes Auto (Unsp spec) [#/Vol] 1.43 10*3/uL 0.83-4.51 [facility] Anion gap in Serum or Plasma Ordered By: Mayda Garcia on 09-22-2024 Anion gap [Moles/Vol] 11 mmol/L 5-15 [facility] Automated lymphocyte count a s percentage of total leukocytesOrdered By: Mayda Garcia on 09-22-2024 Lymphocytes/100 WBC Auto (Unsp spec) 33.1 % 19-41 [facility] BUN/creatinine ratioOrdered By: Mayda Garcia on 09-22-2024 Urea nitrogen/Creatinine [Mass ratio] 26.3 mg/mg High 10- [facility] Basic Metabolic Profile (BMP )on 09-22-2024 BUN/CRE 26.3 RATIO High - [facility] Comment on above: Performed By: #### L 101.9900, L505.7010, L500.2500, L100.0100, L3100.5450, L501.6710 ####[facility] [address] [place], [address] Calcium [Mass/Vol] 8.4 mg/dL Normal 7.6-11.0 [facility] Comment on above: Performed By: #### L 101.9900, L505.7010, L500.2500, L100.0100, L3100.5450, L501.6710 ####[facility] [address] [place], [address] Chloride [Moles/Vol] 108 mmol/L Normal 98-[address] [facility] Comment on above: Performed By: #### L 101.9900, L505.7010, L500.2500, L100.0100, L3100.5450, L501.6710 ####[facility] [address] [place], [address] CO2 [Moles/Vol] 21.6 mmol/L Normal 21.0-32.0 [facility] Comment on above: Performed By: #### L 101.9900, L505.7010, L500.2500, L100.0100, L3100.5450, L501.6710 ####[facility] [address] [place], [address] Creatinine [Mass/Vol] 0.86 mg/dL Normal 0.70-1.20 [facility] Comment on above: Performed By: #### L 101.9900, L505.7010, L500.2500, L100.0100, L3100.5450, L501.6710 ####[facility] [address] [place], [address] GAP 11 Normal 5-15 [facility] Comment on above: Performed By: #### L 101.9900, L505.7010, L500.2500, L100.0100, L3100.5450, L501.6710 ####[facility] [address] [place], [address] GFR/1.73 sq M.predicted among non-blacks MDRD (S/P/Bld) [Vol rate/Area] 72 mL/min/{1.73_m2} Normal >60 [facility] Comment on above: Result Comment: mL/m in/1.73m2 CKD-EPI Creatinine Equation (2020) Performed By: #### L 101.9900, L505.7010, L500.2500, L100.0100, L3100.5450, L501.6710 ####[facility] [address] [place], [address] Glucose [Mass/Vol] 105 mg/dL High 70-99 [facility] Comment on above: Performed By: #### L 101.9900, L505.7010, L500.2500, L100.0100, L3100.5450, L501.6710 ####[facility] [address] [place], [address] Potassium [Moles/Vol] 4.1 mmol/L Normal 3.3-5.1 [facility] Comment on above: Performed By: #### L 101.9900, L505.7010, L500.2500, L100.0100, L3100.5450, L501.6710 ####[facility] [address] [place], [address] Sodium [Moles/Vol] 140 mmol/L Normal 133-145 [facility] Comment on above: Performed By: #### L 101.9900, L505.7010, L500.2500, L100.0100, L3100.5450, L501.6710 ####[facility] [address] [place], [address] Urea nitrogen [Mass/Vol] 23 mg/dL High 4-19 [facility] Comment on above: Performed By: #### L 101.9900, L505.7010, L500.2500, L100.0100, L3100.5450, L501.6710 ####[facility] [address] [place], [place], [address] Basophil percentageOrdered B y: Mayda Garcia on 09-22-2024 Basophils/100 WBC (Bld) 0.7 % 0-1 [facility] Bilirubin directOrdered By: Mikhail Esposito on 09-22-2024 Bilirubin.direct [Mass/Vol] 0.15 mg/dL 0.00-0.30 [facility] Bilirubin, totalOrdered By: Mikhail Esposito on 09-22-2024 Bilirubin [Mass/Vol] 0.33 mg/dL 0.00-1.[address] [facility] CBC W/Diff, Automatedon 09-02 Absolute Lymph 1.43 X10 3/uL Normal 0.83-4.51 [facility] Comment on above: Performed By: #### L 101.9900, L505.7010, L500.2500, L100.0100, L3100.5450, L501.6710 ####[facility] [address] [place], [address] Absolute Neut 2.4 X10 3/uL Normal 2.0-7.7 [facility] Comment on above: Performed By: #### L 101.9900, L505.7010, L500.2500, L100.0100, L3100.5450, L501.6710 ####[facility] [address] [place], [address] Basophils/100 WBC (Bld) 0.7 % Normal 0-1 [facility] Comment on above: Performed By: #### L 101.9900, L505.7010, L500.2500, L100.0100, L3100.5450, L501.6710 ####[facility] [address] [place], [address] Eosinophils/100 WBC (Bld) 2.3 % Normal 0-5 [facility] Comment on above: Performed By: #### L 101.9900, L505.7010, L500.2500, L100.0100, L3100.5450, L501.6710 ####[facility] [address] [place], [address] Erythrocyte distribution width (RBC) [Ratio] 13.9 % Normal 11.6-14.6 [facility] Comment on above: Performed By: #### L 101.9900, L505.7010, L500.2500, L100.0100, L3100.5450, L501.6710 ####[facility] [address] [place], [address] Hematocrit (Bld) [Volume fraction] 33.7 % Low 37-47 [facility] Comment on above: Performed By: #### L 101.9900, L505.7010, L500.2500, L100.0100, L3100.5450, L501.6710 ####[facility] [address] [place], [address] Hemoglobin (Bld) [Mass/Vol] 11.2 g/dL Low 12.0-15.0 [facility] Comment on above: Performed By: #### L 101.9900, L505.7010, L500.2500, L100.0100, L3100.5450, L501.6710 ####[facility] [address] [place], [address] IG% 0.500 Normal 0.0-0.9 [facility] Comment on above: Result Comment: IG% - Immature Granulocytes (promyelocytes, myelocytes andmetamyelocytes) > 1% indicates that a LEFT SHIFT is Present. Performed By: #### L 101.9900, L505.7010, L500.2500, L100.0100, L3100.5450, L501.6710 ####[facility] [address] [place], [address] Lymphocytes/100 WBC (Bld) 33.1 % Normal 19-41 [facility] Comment on above: Performed By: #### L 101.9900, L505.7010, L500.2500, L100.0100, L3100.5450, L501.6710 ####[facility] [address] [place], [address] MCH (RBC) [Entitic mass] 32.5 pg High 27.0-32.0 [facility] Comment on above: Performed By: #### L 101.9900, L505.7010, L500.2500, L100.0100, L3100.5450, L501.6710 ####[facility] [address] [place], [address] MCHC (RBC) [Mass/Vol] 33.2 g/dL Normal 32-36 [facility] Comment on above: Performed By: #### L 101.9900, L505.7010, L500.2500, L100.0100, L3100.5450, L501.6710 ####[facility] [address] [place], [address] MCV (RBC) [Entitic vol] 97.7 fL Normal 81-99 [facility] Comment on above: Performed By: #### L 101.9900, L505.7010, L500.2500, L100.0100, L3100.5450, L501.6710 ####[facility] [address] [place], [address] Monocytes/100 WBC (Bld) 8.1 % Normal 0-10 [facility] Comment on above: Performed By: #### L 101.9900, L505.7010, L500.2500, L100.0100, L3100.5450, L501.6710 ####[facility] [address] [place], [address] Neutrophils/100 WBC (Bld) 55.3 % Normal 47-70 [facility] Comment on above: Performed By: #### L 101.9900, L505.7010, L500.2500, L100.0100, L3100.5450, L501.6710 ####[facility] [address] [place], [address] Nucleated RBC (Bld) [#/Vol] 0 10*3/uL Normal 0-5 [facility] Comment on above: Performed By: #### L 101.9900, L505.7010, L500.2500, L100.0100, L3100.5450, L501.6710 ####[facility] [address] [place], [address] Platelet mean volume (Bld) [Entitic vol] 12.2 fL High 6.2-12.0 [facility] Comment on above: Performed By: #### L 101.9900, L505.7010, L500.2500, L100.0100, L3100.5450, L501.6710 ####[facility] [address] [place], [address] Platelets (Bld) [#/Vol] 155 10*3/uL Normal 150-450 [facility] Comment on above: Performed By: #### L 101.9900, L505.7010, L500.2500, L100.0100, L3100.5450, L501.6710 ####[facility] [address] [place], [address] RBC (Bld) [#/Vol] 3.45 10*6/uL Low 4.2-5.4 [facility] Comment on above: Performed By: #### L 101.9900, L505.7010, L500.2500, L100.0100, L3100.5450, L501.6710 ####[facility] [address] [place], [address] RDW SD 49.9 fl High 35.1-43.9 [facility] Comment on above: Performed By: #### L 101.9900, L505.7010, L500.2500, L100.0100, L3100.5450, L501.6710 ####[facility] [address] [place], [address] WBC (Bld) [#/Vol] 4.3 10*3/uL Low 4.4-11.0 [facility] Comment on above: Performed By: #### L 101.9900, L505.7010, L500.2500, L100.0100, L3100.5450, L501.6710 ####[facility] [address] [place], [address] CRPon 09-22-2024 C-REACTIVE PROT 3.46 mg/L High 0.0-3.0 [facility] Comment on above: Performed By: #### L 101.9900, L505.7010, L500.2500, L100.0100, L3100.5450, L501.6710 ####[facility] [address] [place], [address] Calculated very low density lipoprotein (VLDL) cholesterol measurementOrdered By: Mikhail Apodacaiter on 09-22-2024 Calculated very low density lipoprotein (VLDL) cholesterol measurement 14 mg/dL 5-40 [facility] Carbon dioxide, total [Moles /volume] in Central venous bloodOrdered By: Mayda Garcia on 09-22-2024 CO2 [Moles/Vol] 21.6 mmol/L 21.0-32.0 [facility] Chloride assayOrdered By: Jia Garcia on 09-22-2024 Chloride [Moles/Vol] 108 mmol/L 98-[address] [facility] Eosinophil percentageOrdered By: Mayda Garcia on 09-22-2024 Eosinophils/100 WBC (Bld) 2.3 % 0-5 [facility] Erythrocyte Sed Rateon 09-22 SED RATE 5 mm/hr Normal 0-30 [facility] Comment on above: Performed By: #### L 101.9900, L505.7010, L500.2500, L100.0100, L3100.5450, L501.6710 ####[facility] [address] [place], [address] Erythrocyte distribution wid th ratioOrdered By: Mayda Garcia on 09-22-2024 Erythrocyte distribution width (RBC) [Ratio] 13.9 % 11.6-14.6 [facility] Erythrocyte distribution wid th standard deviationOrdered By: Mayda Garcia on 09-22-2024 Erythrocyte distribution width (RBC) [Ratio] 49.9 fl High 35.1-43.9 [facility] Erythrocyte sedimentation ra teOrdered By: Mayda Garcia on 09-22-2024 ESR (Bld) [Velocity] 5 mm/h 0-[address] [facility] Glomerular filtration rate ( GFR) estimation/1.73 sq m using serum, plasma, or whole bOrdered By: Mayda Garcia on 09-22-2024 GFR/1.73 sq M.predicted among non-blacks MDRD (S/P/Bld) [Vol rate/Area] 72 mL/min/{1.73_m2} >60 [facility] Hematocrit Auto (Bld) [Volum e fraction]Ordered By: Mayda Garcia on 09-22-2024 Hematocrit (Bld) [Volume fraction] 33.7 % Low 37-47 [facility] Hemoglobin measurementOrdere d By: Mayda Garcia on 09-22-2024 Hemoglobin (Bld) [Mass/Vol] 11.2 g/dL Low 12.0-15.0 [facility] Immature granulocytes/100 WB C Auto (Bld)Ordered By: Mayda Garcia on 09-22-2024 Immature granulocytes/100 WBC (Bld) 0.500 % 0.0-0.9 [facility] LDL calc ser/plasOrdered By: Mikhail Esposito on 09-22-2024 Cholesterol in LDL [Mass/Vol] 135 mg/dL [facility] Lipid Profileon 09-22-2024 CHOL:HDL 3.58 Normal [facility] Comment on above: Performed By: #### L 500.4100, L500.3400 ####[facility] [address] [place], [place], [address] Cholesterol [Mass/Vol] 206 mg/dL High <=200 [facility] Comment on above: Result Comment: Chol esterol level, Desirable <200 mg/dLBorderline high cholesterol 200-239 mg/dLHigh cholesterol >=240 mg/dLRecommendations of the NCEP Adult Treatment Panel for thefollowing risk-cutoff thresholds for the [place] [facility]. Performed By: #### L 500.4100, L500.3400 ####[facility] [address] [place], [place], [address] Cholesterol in HDL [Mass/Vol] 58 mg/dL Normal [facility] Comment on above: Result Comment: [facility] onal Cholesterol Education Program (NCEP) guidelines:<40 mg/dL: Low HDL-cholesterol (major risk factor for CHD)>= 60 mg/dL: High HDL-cholesterol (negative risk factor forCHD)HDL-cholesterol is affected by a number of factors, e.g.smoking, exercise, hormones, sex and age. Performed By: #### L 500.4100, L500.3400 ####[facility] [address] [place], [address] Cholesterol in LDL [Mass/Vol] 135 mg/dL Normal [facility] Comment on above: Result Comment: Bord qzvezh=634-517 mg/dL Higher Urjt=386 mg/dL or greater Performed By: #### L 500.4100, L500.3400 ####[facility] [address] [place], [address] Cholesterol in VLDL [Mass/Vol] 14 mg/dL Normal 5-40 [facility] Comment on above: Performed By: #### L 500.4100, L500.3400 ####[facility] [address] [place], [address] Triglyceride [Mass/Vol] 69 mg/dL Normal [facility] Comment on above: Result Comment: The drugs N-Acetylcysteine and Metamizole may falselydepress this assay.Normal range: <150 mg/dLBorderline High: 150-199 mg/dLHigh: 200-499 mg/dLVery High: >500 mg/dL Performed By: #### L 500.4100, L500.3400 ####[facility] [address] [place], [address] Liver Profileon 09-22-2024 Albumin [Mass/Vol] 3.8 g/dL Normal 3.4-4.8 [facility] Comment on above: Performed By: #### L 500.4100, L500.3400 ####[facility] [address] [place], [address] ALK PHOS 71 U/L Normal 35-104 [facility] Comment on above: Performed By: #### L 500.4100, L500.3400 ####[facility] [address] [place], [address] ALT [Catalytic activity/Vol] 19 U/L Normal <=34 [facility] Comment on above: Performed By: #### L 500.4100, L500.3400 ####[facility] [address] [place], [address] AST [Catalytic activity/Vol] 21 U/L Normal <=31 [facility] Comment on above: Performed By: #### L 500.4100, L500.3400 ####[facility] [address] [place], [address] Bilirubin [Mass/Vol] 0.33 mg/dL Normal 0.00-1.[address] [facility] Comment on above: Performed By: #### L 500.4100, L500.3400 ####[facility] [address] [place], [address] Bilirubin.direct [Mass/Vol] 0.15 mg/dL Normal 0.00-0.30 [facility] Comment on above: Performed By: #### L 500.4100, L500.3400 ####[facility] [address] [place], [address] Globulin (S) [Mass/Vol] 2.7 g/dL Normal 2.2-4.2 [facility] Comment on above: Performed By: #### L 500.4100, L500.3400 ####[facility] [address] [place], [address] T PROT 6.5 g/dL Normal 5.9-8.4 [facility] [facility] Comment on above: Performed By: #### L 500.4100, L500.3400 ####[facility] [address] [place], [address] MCV (mean corpuscular volume ) determinationOrdered By: Mayda Garcia on 09-22-2024 MCV (RBC) [Entitic vol] 97.7 fL 81-99 [facility] Mean corpuscular hemoglobin (MCH) determinationOrdered By: Mayda Garcia on 09-22-2024 MCH (RBC) [Entitic mass] 32.5 pg High 27.0-32.0 [facility] Monocyte percentageOrdered B y: Mayda Garcia on 09-22-2024 Monocytes/100 WBC (Bld) 8.1 % 0-10 [facility] Neutrophil percentageOrdered By: Jiamichellerosemary Suleimantoyachandana on 09-22-2024 Neutrophils/100 WBC (Bld) 55.3 % 47-70 [facility] No Panel InformationOrdered By: Mikhail Apodacaiter on 09-22-2024 21 U/L <32 [facility] Platelet countOrdered By: Jia michellerosemary Garcia on 09-22-2024 Platelets (Bld) [#/Vol] 155 10*3/uL 150-450 [facility] Potassium measurement (mass/ volume)Ordered By: Mayda Garcia on 09-22-2024 Potassium (Unsp spec) [Mass/Vol] 4.1 mmol/L 3.3-5.1 [facility] RBC Auto (Bld) [#/Vol]Ordere d By: Mayda Garcia on 09-22-2024 RBC (Bld) [#/Vol] 3.45 10*6/uL Low 4.2-5.4 [facility] Rheumatoid Factoron 09-23-19 25 RHEUMATOID FAC < 10.0 Normal <15 [facility] Comment on above: Performed By: #### L 101.9900, L505.7010, L500.2500, L100.0100, L3100.5450, L501.6710 ####[facility] [address] [place], [address] Serum DNA double strand anti body assay (units/volume)Ordered By: Mayda Garcia on 09-22-2024 DNA double strand Ab Qn (S) TNP [facility] Serum Scl-70 antibody assay (units/volume)Ordered By: Mayda Garcia on 09-22-2024 SCL-70 extractable nuclear Ab Qn (S) TNP [facility] Serum creatinine measurement (mass/volume)Ordered By: Mayda Garcia on 09-22-2024 Creatinine [Mass/Vol] 0.86 mg/dL 0.70-1.20 [facility] Serum globulin measurementOr dered By: Mikhail Esposito on 09-22-2024 Globulin (S) [Mass/Vol] 2.7 g/dL 2.2-4.2 [facility] Serum glucose measurement (m ass/volume)Ordered By: Mayda Garcia on 09-22-2024 Glucose [Mass/Vol] 105 mg/dL High 70-99 [facility] Serum or plasma C reactive p rotein measurement (mass/volume)Ordered By: Mayda Garcia on 09-22-2024 CRP [Mass/Vol] 3.46 mg/L High 0.0-3.0 [facility] Serum or plasma alanine carvalho otransferase (ALT) measurementOrdered By: Mikhail Esposito on 09-22-2024 ALT [Catalytic activity/Vol] 19 U/L <35 [facility] Serum or plasma albumin loretta urement (mass/volume)Ordered By: Mikhail Esposito on 09-22-2024 Albumin [Mass/Vol] 3.8 g/dL 3.4-4.8 [facility] Serum or plasma alkaline dima sphatase measurementOrdered By: Mikhail Esposito on 09-22-2024 ALP [Catalytic activity/Vol] 71 U/L 35-104 [facility] Serum or plasma calcium loretta urement (mass/volume)Ordered By: Mayda Garcia on 09-22-2024 Calcium [Mass/Vol] 8.4 mg/dL 7.6-11.0 [facility] Serum or plasma cholesterol in HDL measurement (mass/volume)Ordered By: Mikhail Esposito on 09-22-2024 Cholesterol in HDL [Mass/Vol] 58 mg/dL >40 [facility] Serum or plasma cholesterol measurement (mass/volume)Ordered By: Mikhail Esposito on 09-22-2024 Cholesterol [Mass/Vol] 206 mg/dL High <201 [facility] Serum or plasma urea nitroge n measurement (mass/volume)Ordered By: Mayda Garcia on 09-22-2024 Urea nitrogen [Mass/Vol] 23 mg/dL High 4- [facility] Serum rheumatoid factor dete ctionOrdered By: Mayda Garcia on 09-22-2024 Rheumatoid factor Ql (S) < 10.0 IU/mL <15 [facility] Sodium levelOrdered By: Noris rosemary Suleimantoyachandana on 09-22-2024 Sodium [Moles/Vol] 140 mmol/L 133-145 [facility] Total proteinOrdered By: Fer Esposito on 09-22-2024 Protein [Mass/Vol] 6.5 g/dL 5.9-8.4 [facility] White blood cell (WBC) count Ordered By: Mayda Garcia on 09-22-2024 WBC (Bld) [#/Vol] 4.3 10*3/uL Low 4.4-11.0 [facility] Internal Medicine Office Vis iton 09-21-2024 Internal Medicine Office Visit Normal [facility] Cardiology Visit Reporton Cardiology Visit Report Normal [facility] 12 Lead EKGon 09-16-2024 12 Lead EKG Normal [facility] Absolute lymphocyte countOrd ered By: Azam Frey on 09-16-2024 Lymphocytes Auto (Unsp spec) [#/Vol] 1.40 10*3/uL 0.83-4.51 [facility] Anion gap in Serum or Plasma Ordered By: Azam Frey on 09-16-2024 Anion gap [Moles/Vol] 10 mmol/L 5-15 [facility] Automated lymphocyte count a s percentage of total leukocytesOrdered By: Azam Frey on 09-16-2024 Lymphocytes/100 WBC Auto (Unsp spec) 33.3 % -41 [facility] BUN/creatinine ratioOrdered By: Azam Frey on 09-16-2024 Urea nitrogen/Creatinine [Mass ratio] 28.6 mg/mg High 10- [facility] Basic Metabolic Profile (BMP )on 09-16-2024 BUN/CRE 28.6 RATIO High 02-20 [facility] Comment on above: Performed By: #### L 500.2500, L503.7505, L100.0100, L501.4021 ####[facility] [address] [place], [address] Calcium [Mass/Vol] 8.7 mg/dL Normal 7.6-11.0 [facility] Comment on above: Performed By: #### L 500.2500, L503.7505, L100.0100, L501.4021 ####[facility] [address] [place], [address] Chloride [Moles/Vol] 109 mmol/L High 98-[address] [facility] Comment on above: Performed By: #### L 500.2500, L503.7505, L100.0100, L501.4021 ####[facility] [address] [place], [address] CO2 [Moles/Vol] 23.0 mmol/L Normal 21.0-32.0 [facility] Comment on above: Performed By: #### L 500.2500, L503.7505, L100.0100, L501.4021 ####[facility] [address] [place], [address] Creatinine [Mass/Vol] 0.77 mg/dL Normal 0.70-1.20 [facility] Comment on above: Performed By: #### L 500.2500, L503.7505, L100.0100, L501.4021 ####[facility] [address] [place], [address] GAP 10 Normal 5-15 [facility] Comment on above: Performed By: #### L 500.2500, L503.7505, L100.0100, L501.4021 ####[facility] [address] [place], [address] GFR/1.73 sq M.predicted among non-blacks MDRD (S/P/Bld) [Vol rate/Area] 82 mL/min/{1.73_m2} Normal >60 [facility] Comment on above: Result Comment: mL/m in/1.73m2 CKD-EPI Creatinine Equation (2020) Performed By: #### L 500.2500, L503.7505, L100.0100, L501.4021 ####[facility] [address] [place], [address] Glucose [Mass/Vol] 76 mg/dL Normal 70-99 [facility] Comment on above: Performed By: #### L 500.2500, L503.7505, L100.0100, L501.4021 ####[facility] [address] [place], [address] Potassium [Moles/Vol] 3.7 mmol/L Normal 3.3-5.1 [facility] Comment on above: Performed By: #### L 500.2500, L503.7505, L100.0100, L501.4021 ####[facility] [address] [place], [address] Sodium [Moles/Vol] 142 mmol/L Normal 133-145 [facility] Comment on above: Performed By: #### L 500.2500, L503.7505, L100.0100, L501.4021 ####[facility] [address] [place], [address] Urea nitrogen [Mass/Vol] 22 mg/dL High 4-19 [facility] Comment on above: Performed By: #### L 500.2500, L503.7505, L100.0100, L501.4021 ####[facility] [address] [place], [address] Basophil percentageOrdered B y: Azam Frey on 09-16-2024 Basophils/100 WBC (Bld) 0.2 % 0-1 [facility] CBC W/Diff, Automatedon 09-01 Absolute Lymph 1.40 X10 3/uL Normal 0.83-4.51 [facility] Comment on above: Performed By: #### L 500.2500, L503.7505, L100.0100, L501.4021 ####[facility] [address] [place], [address] Absolute Neut 2.3 X10 3/uL Normal 2.0-7.7 [facility] Comment on above: Performed By: #### L 500.2500, L503.7505, L100.0100, L501.4021 ####[facility] [address] [place], [address] Basophils/100 WBC (Bld) 0.2 % Normal 0-1 [facility] Comment on above: Performed By: #### L 500.2500, L503.7505, L100.0100, L501.4021 ####[facility] [address] [place], [address] Eosinophils/100 WBC (Bld) 2.4 % Normal 0-5 [facility] Comment on above: Performed By: #### L 500.2500, L503.7505, L100.0100, L501.4021 ####[facility] [address] [place], [address] Erythrocyte distribution width (RBC) [Ratio] 13.8 % Normal 11.6-14.6 [facility] Comment on above: Performed By: #### L 500.2500, L503.7505, L100.0100, L501.4021 ####[facility] [address] [place], [address] Hematocrit (Bld) [Volume fraction] 25.8 % Low 37-47 [facility] Comment on above: Performed By: #### L 500.2500, L503.7505, L100.0100, L501.4021 ####[facility] [address] [place], [address] Hemoglobin (Bld) [Mass/Vol] 8.6 g/dL Low 12.0-15.0 [facility] Comment on above: Performed By: #### L 500.2500, L503.7505, L100.0100, L501.4021 ####[facility] [address] [place], [address] IG% 0.500 Normal 0.0-0.9 [facility] Comment on above: Result Comment: IG% - Immature Granulocytes (promyelocytes, myelocytes andmetamyelocytes) > 1% indicates that a LEFT SHIFT is Present. Performed By: #### L 500.2500, L503.7505, L100.0100, L501.4021 ####[facility] [address] [place], [address] Lymphocytes/100 WBC (Bld) 33.3 % Normal 19-41 [facility] Comment on above: Performed By: #### L 500.2500, L503.7505, L100.0100, L501.4021 ####[facility] [address] [place], [address] MCH (RBC) [Entitic mass] 32.5 pg High 27.0-32.0 [facility] Comment on above: Performed By: #### L 500.2500, L503.7505, L100.0100, L501.4021 ####[facility] [address] [place], [address] MCHC (RBC) [Mass/Vol] 33.3 g/dL Normal 32-36 [facility] Comment on above: Performed By: #### L 500.2500, L503.7505, L100.0100, L501.4021 ####[facility] [address] [place], [address] MCV (RBC) [Entitic vol] 97.4 fL Normal 81-99 [facility] Comment on above: Performed By: #### L 500.2500, L503.7505, L100.0100, L501.4021 ####[facility] [address] [place], [address] Monocytes/100 WBC (Bld) 8.6 % Normal 0-10 [facility] Comment on above: Performed By: #### L 500.2500, L503.7505, L100.0100, L501.4021 ####[facility] [address] [place], [address] Neutrophils/100 WBC (Bld) 55.0 % Normal 47-70 [facility] Comment on above: Performed By: #### L 500.2500, L503.7505, L100.0100, L501.4021 ####[facility] [address] [place], [address] Nucleated RBC (Bld) [#/Vol] 0 10*3/uL Normal 0-5 [facility] Comment on above: Performed By: #### L 500.2500, L503.7505, L100.0100, L501.4021 ####[facility] [address] [place], [address] Platelet mean volume (Bld) [Entitic vol] 11.6 fL Normal 6.2-12.0 [facility] Comment on above: Performed By: #### L 500.2500, L503.7505, L100.0100, L501.4021 ####[facility] [address] [place], [address] Platelets (Bld) [#/Vol] 117 10*3/uL Low 150-450 [facility] Comment on above: Performed By: #### L 500.2500, L503.7505, L100.0100, L501.4021 ####[facility] [address] [place], [address] RBC (Bld) [#/Vol] 2.65 10*6/uL Low 4.2-5.4 [facility] Comment on above: Performed By: #### L 500.2500, L503.7505, L100.0100, L501.4021 ####[facility] [address] [place], [address] RDW SD 48.9 fl High 35.1-43.9 [facility] Comment on above: Performed By: #### L 500.2500, L503.7505, L100.0100, L501.4021 ####[facility] [address] [place], [address] WBC (Bld) [#/Vol] 4.2 10*3/uL Low 4.4-11.0 [facility] Comment on above: Performed By: #### L 500.2500, L503.7505, L100.0100, L501.4021 ####[facility] [address] [place], [address] Carbon dioxide, total [Moles /volume] in Central venous bloodOrdered By: Azam Frey on 09-16-2024 CO2 [Moles/Vol] 23.0 mmol/L 21.0-32.0 [facility] Chest 1 View (Portable)on Chest 1 View (Portable) Normal [facility] Chloride assayOrdered By: Hugh Frey on 09-16-2024 Chloride [Moles/Vol] 109 mmol/L High 98-[address] [facility] Emergency Department Summary on 09-16-2024 Emergency Department Summary Normal [facility] Eosinophil percentageOrdered By: Azam Frey on 09-16-2024 Eosinophils/100 WBC (Bld) 2.4 % 0-5 [facility] Erythrocyte distribution wid th ratioOrdered By: Azam Frey on 09-16-2024 Erythrocyte distribution width (RBC) [Ratio] 13.8 % 11.6-14.6 [facility] Erythrocyte distribution wid th standard deviationOrdered By: Azam Frey on 09-16-2024 Erythrocyte distribution width (RBC) [Ratio] 48.9 fl High 35.1-43.9 [facility] Glomerular filtration rate ( GFR) estimation/1.73 sq m using serum, plasma, or whole bOrdered By: Azamjerica Frey on 09-16-2024 GFR/1.73 sq M.predicted among non-blacks MDRD (S/P/Bld) [Vol rate/Area] 82 mL/min/{1.73_m2} >60 [facility] Hematocrit Auto (Bld) [Volum e fraction]Ordered By: Azam Frey on 09-16-2024 Hematocrit (Bld) [Volume fraction] 25.8 % Low 37-47 [facility] Hemoglobin measurementOrdere d By: Azamjerica Frey on 09-16-2024 Hemoglobin (Bld) [Mass/Vol] 8.6 g/dL Low 12.0-15.0 [facility] Immature granulocytes/100 WB C Auto (Bld)Ordered By: Azam Frey on 09-16-2024 Immature granulocytes/100 WBC (Bld) 0.500 % 0.0-0.9 [facility] L499.0042on 09-16-2024 Trop T High Sen 7 ng/L Normal <=14 [facility] Comment on above: Result Comment: Hemo lysis present, Results??could be affected.?? Performed By: #### L 499.0042 ####[facility] [address] [place], [address] L499.0043on 09-16-2024 Trop T High Sen Normal <=14 [facility] Comment on above: Result Comment: Canc elled via OM: Order cancelled - Patient discharged Performed By: #### L 499.0043 ####[facility] [address] [place], [address] L501.4021on 09-16-2024 Trop T High Sen 8 ng/L Normal <=14 [facility] Comment on above: Performed By: #### L 500.2500, L503.7505, L100.0100, L501.4021 ####[facility] [address] [place], [address] L503.7505on 09-16-2024 Natriuretic peptide B (Bld) [Mass/Vol] 239 pg/mL Normal <=900 [facility] Comment on above: Result Comment: Hear t Failure Unlikely: < 300 pg/mLHeart Failure Likely< 50 Years: > 450 pg/mL50-75 Years: > 900 pg/mL>75 Years: > 1800 pg/mL Performed By: #### L 500.2500, L503.7505, L100.0100, L501.4021 ####[facility] [address] [place], [place], [address] MCV (mean corpuscular volume ) determinationOrdered By: Azam Frey on 09-16-2024 MCV (RBC) [Entitic vol] 97.4 fL 81-99 [facility] Mean corpuscular hemoglobin (MCH) determinationOrdered By: Azam Frey on 09-16-2024 MCH (RBC) [Entitic mass] 32.5 pg High 27.0-32.0 [facility] Monocyte percentageOrdered B y: Azam Frey on 09-16-2024 Monocytes/100 WBC (Bld) 8.6 % 0-10 [facility] Natriuretic peptide.B prohor thai N-Terminal [Mass/volume] in Serum or PlasmaOrdered By: Azam Frey on 09-16-2024 Natriuretic peptide.B prohormone N-Terminal [Mass/Vol] 239 pg/mL <900 [facility] Neutrophil percentageOrdered By: Azam Frey on 09-16-2024 Neutrophils/100 WBC (Bld) 55.0 % 47-70 [facility] Platelet countOrdered By: Hugh Frey on 09-16-2024 Platelets (Bld) [#/Vol] 117 10*3/uL Low 150-450 [facility] Potassium measurement (mass/ volume)Ordered By: Azam Frey on 09-16-2024 Potassium (Unsp spec) [Mass/Vol] 3.7 mmol/L 3.3-5.1 [facility] RBC Auto (Bld) [#/Vol]Ordere d By: Azam Frey on 09-16-2024 RBC (Bld) [#/Vol] 2.65 10*6/uL Low 4.2-5.4 [facility] Serum creatinine measurement (mass/volume)Ordered By: Azam Frey on 09-16-2024 Creatinine [Mass/Vol] 0.77 mg/dL 0.70-1.20 [facility] Serum glucose measurement (m ass/volume)Ordered By: Azam Frey on 09-16-2024 Glucose [Mass/Vol] 76 mg/dL 70-99 [facility] Serum or plasma calcium loretta urement (mass/volume)Ordered By: Azam Frey on 09-16-2024 Calcium [Mass/Vol] 8.7 mg/dL 7.6-11.0 [facility] Serum or plasma urea nitroge n measurement (mass/volume)Ordered By: Azam Frey on 09-16-2024 Urea nitrogen [Mass/Vol] 22 mg/dL High 4-19 [facility] Sodium levelOrdered By: Azam Frey on 09-16-2024 Sodium [Moles/Vol] 142 mmol/L 133-145 [facility] Stool Occult Blood iFOBon STOB Negative Normal [facility] Comment on above: Performed By: #### M 100.7900 ####[facility] [address] [place], [address] Stool gastrointestinal hemog lobin detection by immunologic methodOrdered By: Azam Frey on 09-16-2024 Lower GI hemoglobin IA Ql (Stl) [facility] Troponin T.cardiac [Mass/vol ume] in Serum or Plasma by High sensitivity methodOrdered By: Azam Frey on 09-16-2024 Troponin T.cardiac High sensitivity method [Mass/Vol] 7 ng/L <14 [facility] Troponin T.cardiac High sensitivity method [Mass/Vol] 8 ng/L <14 [facility] White blood cell (WBC) count Ordered By: Azam Frey on 09-16-2024 WBC (Bld) [#/Vol] 4.2 10*3/uL Low 4.4-11.0 [facility] Internal Medicine Office Vis iton 08-10-2024 Internal Medicine Office Visit Normal [facility] No Panel InformationOrdered By: Mayda Garcia on 08-10-2024 6.4 % High 4.2-6.3 [facility] Chest PA and Lateralon 07-15 Chest PA and Lateral Normal [facility] Emergency Department Summary on 07-15-2024 Emergency Department Summary Normal [facility] 12 Lead EKGon 07-14-2024 12 Lead EKG Normal [facility] Absolute lymphocyte countOrd ered By: Ulisses Chan on 07-14-2024 Lymphocytes Auto (Unsp spec) [#/Vol] 1.82 10*3/uL 0.83-4.51 [facility] Absolute neutrophil countOrd ered By: Ulisses Chan on 07-14-2024 Absolute neutrophil count 2.4 X10^3/uL 2.0-7.7 [facility] Anion gap [Moles/Vol]Ordered By: Ulisses Chan on 07-14-2024 Anion gap in Serum or Plasma 12 09-15 [facility] Anion gap in Serum or Plasma Ordered By: Ulisses Chan on 07-14-2024 Anion gap [Moles/Vol] 12 mmol/L 09-15 [facility] Automated lymphocyte count a s percentage of total leukocytesOrdered By: Ulisses Chan on 07-14-2024 Lymphocytes/100 WBC Auto (Unsp spec) 38.7 % 19-41 [facility] BUN/creatinine ratioOrdered By: Ulisses Chan on 07-14-2024 Urea nitrogen/Creatinine [Mass ratio] 21.2 mg/mg High 10-20 [facility] BUN/creatinine ratio 21.2 RATIO High 10-[address] [facility] Basic Metabolic Profile (BMP )on 07-14-2024 BUN/CRE 21.2 RATIO High - [facility] Comment on above: Performed By: #### L 100.0100, L501.4021, L500.2500 ####[facility] [address] [place], [address] Calcium [Mass/Vol] 9.4 mg/dL Normal 7.6-11.0 [facility] Comment on above: Performed By: #### L 100.0100, L501.4021, L500.2500 ####[facility] [address] [place], [address] Chloride [Moles/Vol] 106 mmol/L Normal 98-[address] [facility] Comment on above: Performed By: #### L 100.0100, L501.4021, L500.2500 ####[facility] [address] [place], [address] CO2 [Moles/Vol] 23.7 mmol/L Normal 21.0-32.0 [facility] Comment on above: Performed By: #### L 100.0100, L501.4021, L500.2500 ####[facility] [address] [place], [address] Creatinine [Mass/Vol] 0.94 mg/dL Normal 0.70-1.20 [facility] Comment on above: Performed By: #### L 100.0100, L501.4021, L500.2500 ####[facility] [address] [place], [address] ECRCL 52.46 ml/min Normal 50-250 [facility] Comment on above: Performed By: #### L 100.0100, L501.4021, L500.2500 ####[facility] [address] [place], [address] GAP 12 Normal 5-15 [facility] Comment on above: Performed By: #### L 100.0100, L501.4021, L500.2500 ####[facility] [address] [place], [address] GFR/1.73 sq M.predicted among non-blacks MDRD (S/P/Bld) [Vol rate/Area] 65 mL/min/{1.73_m2} Normal >60 [facility] Comment on above: Result Comment: mL/m in/1.73m2 CKD-EPI Creatinine Equation (2020) Performed By: #### L 100.0100, L501.4021, L500.2500 ####[facility] [address] [place], [address] Glucose [Mass/Vol] 141 mg/dL High 70-99 [facility] Comment on above: Performed By: #### L 100.0100, L501.4021, L500.2500 ####[facility] [address] [place], [address] Potassium [Moles/Vol] 3.9 mmol/L Normal 3.3-5.1 [facility] Comment on above: Performed By: #### L 100.0100, L501.4021, L500.2500 ####[facility] [address] [place], [address] Sodium [Moles/Vol] 142 mmol/L Normal 133-145 [facility] Comment on above: Performed By: #### L 100.0100, L501.4021, L500.2500 ####[facility] [address] [place], [address] Urea nitrogen [Mass/Vol] 20 mg/dL High 4-19 [facility] Comment on above: Performed By: #### L 100.0100, L501.4021, L500.2500 ####[facility] [address] [place], [address] Basophil percentageOrdered B y: Ulisses Le on 07-14-2024 Basophils/100 WBC (Bld) 0.2 % 0-1 [facility] Basophil percentage 0.2 % 0-1 [facility] CBC W/Diff, Automatedon 07-02 Absolute Lymph 1.82 X10 3/uL Normal 0.83-4.51 [facility] Comment on above: Performed By: #### L 100.0100, L501.4021, L500.2500 ####[facility] [address] [place], [address] Absolute Neut 2.4 X10 3/uL Normal 2.0-7.7 [facility] Comment on above: Performed By: #### L 100.0100, L501.4021, L500.2500 ####[facility] [address] [place], [address] Basophils/100 WBC (Bld) 0.2 % Normal 0-1 [facility] Comment on above: Performed By: #### L 100.0100, L501.4021, L500.2500 ####[facility] [address] [place], [address] Eosinophils/100 WBC (Bld) 1.7 % Normal 0-5 [facility] Comment on above: Performed By: #### L 100.0100, L501.4021, L500.2500 ####[facility] [address] [place], [address] Erythrocyte distribution width (RBC) [Ratio] 13.2 % Normal 11.6-14.6 [facility] Comment on above: Performed By: #### L 100.0100, L501.4021, L500.2500 ####[facility] [address] [place], [address] Hematocrit (Bld) [Volume fraction] 35.2 % Low 37-47 [facility] Comment on above: Performed By: #### L 100.0100, L501.4021, L500.2500 ####[facility] [address] [place], [address] Hemoglobin (Bld) [Mass/Vol] 11.8 g/dL Low 12.0-15.0 [facility] Comment on above: Performed By: #### L 100.0100, L501.4021, L500.2500 ####[facility] [address] [place], [address] IG% 0.200 Normal 0.0-0.9 [facility] Comment on above: Result Comment: IG% - Immature Granulocytes (promyelocytes, myelocytes andmetamyelocytes) > 1% indicates that a LEFT SHIFT is Present. Performed By: #### L 100.0100, L501.4021, L500.2500 ####[facility] [address] [place], [address] Lymphocytes/100 WBC (Bld) 38.7 % Normal 19-41 [facility] Comment on above: Performed By: #### L 100.0100, L501.4021, L500.2500 ####[facility] [address] [place], [address] MCH (RBC) [Entitic mass] 32.3 pg High 27.0-32.0 [facility] Comment on above: Performed By: #### L 100.0100, L501.4021, L500.2500 ####[facility] [address] [place], [address] MCHC (RBC) [Mass/Vol] 33.5 g/dL Normal 32-36 [facility] Comment on above: Performed By: #### L 100.0100, L501.4021, L500.2500 ####[facility] [address] [place], [address] MCV (RBC) [Entitic vol] 96.4 fL Normal 81-99 [facility] Comment on above: Performed By: #### L 100.0100, L501.4021, L500.2500 ####[facility] [address] [place], [address] Monocytes/100 WBC (Bld) 8.1 % Normal 0-10 [facility] Comment on above: Performed By: #### L 100.0100, L501.4021, L500.2500 ####[facility] [address] [place], [address] Neutrophils/100 WBC (Bld) 51.1 % Normal 47-70 [facility] Comment on above: Performed By: #### L 100.0100, L501.4021, L500.2500 ####[facility] [address] [place], [address] Nucleated RBC (Bld) [#/Vol] 0 10*3/uL Normal 0-5 [facility] Comment on above: Performed By: #### L 100.0100, L501.4021, L500.2500 ####[facility] [address] [place], [address] Platelet mean volume (Bld) [Entitic vol] 10.8 fL Normal 6.2-12.0 [facility] Comment on above: Performed By: #### L 100.0100, L501.4021, L500.2500 ####[facility] [address] [place], [address] Platelets (Bld) [#/Vol] 208 10*3/uL Normal 150-450 [facility] Comment on above: Performed By: #### L 100.0100, L501.4021, L500.2500 ####[facility] [address] [place], [address] RBC (Bld) [#/Vol] 3.65 10*6/uL Low 4.2-5.4 [facility] Comment on above: Performed By: #### L 100.0100, L501.4021, L500.2500 ####[facility] [address] [place], [address] RDW SD 47.2 fl High 35.1-43.9 [facility] Comment on above: Performed By: #### L 100.0100, L501.4021, L500.2500 ####[facility] [address] [place], [address] WBC (Bld) [#/Vol] 4.7 10*3/uL Normal 4.4-11.0 [facility] Comment on above: Performed By: #### L 100.0100, L501.4021, L500.2500 ####[facility] [address] [facility] [place], [address] Calcium [Mass/Vol]Ordered By : Ulisses Chan on 07-14-2024 Serum or plasma calcium measurement (mass/volume) 9.4 mg/dL 7.6-11.0 [facility] Carbon dioxide, total [Moles /volume] in Central venous bloodOrdered By: Ulisses Chan on 07-14-2024 CO2 [Moles/Vol] 23.7 mmol/L 21.0-32.0 [facility] Carbon dioxide, total [Moles/volume] in Central venous blood 23.7 mmol/L 21.0-32.0 [facility] Chest without Contraston Chest without Contrast Normal [facility] Chloride assayOrdered By: Margarito Chan on 07-14-2024 Chloride [Moles/Vol] 106 mmol/L 98-[address] [facility] Chloride assay 106 mmol/L 98-108 [facility] Creatinine [Mass/Vol]Ordered By: Ulisses Chan on 07-14-2024 Serum creatinine measurement (mass/volume) 0.94 mg/dL 0.70-1.20 [facility] Emergency Department Summary on 07-14-2024 Emergency Department Summary Normal [facility] Eosinophil percentageOrdered By: Ulisses Chan on 07-14-2024 Eosinophils/100 WBC (Bld) 1.7 % 0-5 [facility] Eosinophil percentage 1.7 % 0-5 [facility] Erythrocyte distribution wid th (RBC) [Entitic vol]Ordered By: Ulisses Chan on 07-14-2024 Erythrocyte distribution width standard deviation 47.2 fl High 35.1-43.9 [facility] Erythrocyte distribution wid th (RBC) [Ratio]Ordered By: Ulisses Chan on 07-14-2024 Erythrocyte distribution width ratio 13.2 % 11.6-14.6 [facility] Erythrocyte distribution wid th ratioOrdered By: Ulisses Chan on 07-14-2024 Erythrocyte distribution width (RBC) [Ratio] 13.2 % 11.6-14.6 [facility] Erythrocyte distribution wid th standard deviationOrdered By: Ulisses Chan on 07-14-2024 Erythrocyte distribution width (RBC) [Ratio] 47.2 fl High 35.1-43.9 [facility] Estimation of creatinine carl aranceOrdered By: Ulisses Chan on 07-14-2024 Estimation of creatinine clearance 52.46 ml/min 50-250 [facility] GFR/1.73 sq M.predicted leland g non-blacks MDRD (S/P/Bld) [Vol rate/Area]Ordered By: Ulisses Chan on 07-14-2024 Glomerular filtration rate (GFR) estimation/1.73 sq m using serum, plasma, or whole b 65 >60 [facility] Glomerular filtration rate ( GFR) estimation/1.73 sq m using serum, plasma, or whole bOrdered By: Ulisses Chan on 07-14-2024 GFR/1.73 sq M.predicted among non-blacks MDRD (S/P/Bld) [Vol rate/Area] 65 mL/min/{1.73_m2} >60 [facility] Glucose [Mass/Vol]Ordered By : Ulisses Chan on 07-14-2024 Serum glucose measurement (mass/volume) 141 mg/dL High 70-99 [facility] Hematocrit Auto (Bld) [Volum e fraction]Ordered By: Ulisses Chan on 07-14-2024 Hematocrit (Bld) [Volume fraction] 35.2 % Low 37-47 [facility] Automated blood hematocrit (percentage) 35.2 % Low 37-47 [facility] Hemoglobin measurementOrdere d By: Ulisses Chan on 07-14-2024 Hemoglobin (Bld) [Mass/Vol] 11.8 g/dL Low 12.0-15.0 [facility] Hemoglobin measurement 11.8 g/dL Low 12.0-15.0 [facility] Immature granulocytes/100 WB C Auto (Bld)Ordered By: Ulisses Chan on 07-14-2024 Immature granulocytes/100 WBC (Bld) 0.200 % 0.0-0.9 [facility] Automated immature granulocyte percentage 0.200 % 0.0-0.9 [facility] L499.0042on 07-14-2024 Trop T High Sen 11 ng/L Normal <=14 [facility] Comment on above: Performed By: #### L 499.0042 ####[facility] [address] [place], [address] L499.0043on 07-14-2024 Trop T High Sen Normal <=14 [facility] Comment on above: Result Comment: NO S PECIMEN COLLECTED. PATIENT DEPARTED ED Performed By: #### L 499.0043 ####[facility] [address] [place], [address] L501.4021on 07-14-2024 Trop T High Sen 9 ng/L Normal <=14 [facility] Comment on above: Performed By: #### L 100.0100, L501.4021, L500.2500 ####[facility] [address] [place], [address] Lymphocytes Auto (Unsp spec) [#/Vol]Ordered By: Ulisses Chan on 07-14-2024 Absolute lymphocyte count 1.82 X10^3/uL 0.83-4.51 [facility] Lymphocytes/100 WBC Auto (Un sp spec)Ordered By: Ulisses Chan on 07-14-2024 Automated lymphocyte count as percentage of total leukocytes 38.7 % 19-41 [facility] MCV (RBC) [Entitic vol]Order ed By: Ulisses Chan on 07-14-2024 MCV (mean corpuscular volume) determination 96.4 fL 81-99 [facility] MCV (mean corpuscular volume ) determinationOrdered By: Ulisses Chan on 07-14-2024 MCV (RBC) [Entitic vol] 96.4 fL 81-99 [facility] Mean corpuscular hemoglobin (MCH) determinationOrdered By: Ulisses Chan on 07-14-2024 MCH (RBC) [Entitic mass] 32.3 pg High 27.0-32.0 [facility] Mean corpuscular hemoglobin (MCH) determination 32.3 pg High 27.0-32.0 [facility] Mean corpuscular hemoglobin concentration (MCHC) determinationOrdered By: Ulisses Chan on 07-14-2024 Mean corpuscular hemoglobin concentration (MCHC) determination 33.5 g/dL 32-36 [facility] Mean platelet volume determi nationOrdered By: Ulisses Chan on 07-14-2024 Mean platelet volume determination 10.8 fl 6.2-12.0 [facility] Monocyte percentageOrdered B y: Ulisses Chan on 07-14-2024 Monocytes/100 WBC (Bld) 8.1 % 0-10 [facility] Monocyte percentage 8.1 % 0-10 [facility] Neutrophil percentageOrdered By: Ulisses Chan on 07-14-2024 Neutrophils/100 WBC (Bld) 51.1 % 47-70 [facility] Neutrophil percentage 51.1 % 47-70 [facility] No Panel InformationOrdered By: Ulisses Chan on 07-14-2024 9 ng/L <14 [facility] Nucleated red blood cell per centageOrdered By: Ulisses Chan on 07-14-2024 Nucleated red blood cell percentage 0 % 0-5 [facility] Platelet countOrdered By: Margarito Chan on 07-14-2024 Platelets (Bld) [#/Vol] 208 10*3/uL 150-450 [facility] Platelet count 208 K/mm3 150-450 [facility] Potassium (Unsp spec) [Mass/ Vol]Ordered By: Ulisses Chan on 07-14-2024 Potassium measurement (mass/volume) 3.9 mmol/L 3.3-5.1 [facility] Potassium measurement (mass/ volume)Ordered By: Ulisses Chan on 07-14-2024 Potassium (Unsp spec) [Mass/Vol] 3.9 mmol/L 3.3-5.1 [facility] RBC Auto (Bld) [#/Vol]Ordere d By: Ulisses Chan on 07-14-2024 RBC (Bld) [#/Vol] 3.65 10*6/uL Low 4.2-5.4 [facility] Automated blood erythrocyte count 3.65 M/mm3 Low 4.2-5.4 [facility] Serum creatinine measurement (mass/volume)Ordered By: Ulisses Chan on 07-14-2024 Creatinine [Mass/Vol] 0.94 mg/dL 0.70-1.20 [facility] Serum glucose measurement (m ass/volume)Ordered By: Ulisses Chan on 07-14-2024 Glucose [Mass/Vol] 141 mg/dL High 70-99 [facility] Serum or plasma calcium loretta urement (mass/volume)Ordered By: Ulisses Chan on 07-14-2024 Calcium [Mass/Vol] 9.4 mg/dL 7.6-11.0 [facility] Serum or plasma urea nitroge n measurement (mass/volume)Ordered By: Ulisses Chan on 07-14-2024 Urea nitrogen [Mass/Vol] 20 mg/dL High 08-20 [facility] Sodium levelOrdered By: Ulisses Chan on 07-14-2024 Sodium [Moles/Vol] 142 mmol/L 133-145 [facility] Sodium level 142 mmol/L 133-145 [facility] Troponin T.cardiac High sens itivity method [Mass/Vol]Ordered By: Ulisses Chan on 07-14-2024 Troponin T.cardiac [Mass/volume] in Serum or Plasma by High sensitivity method 11 ng/L <14 [facility] Troponin T.cardiac [Mass/vol ume] in Serum or Plasma by High sensitivity methodOrdered By: Ulisses Chan on 07-14-2024 Troponin T.cardiac High sensitivity method [Mass/Vol] 11 ng/L <14 [facility] Urea nitrogen [Mass/Vol]Orde red By: Ulisses Chan on 07-14-2024 Serum or plasma urea nitrogen measurement (mass/volume) 20 mg/dL High 08-20 [facility] White blood cell (WBC) count Ordered By: Ulisses Chan on 07-14-2024 WBC (Bld) [#/Vol] 4.7 10*3/uL 4.4-11.0 [facility] White blood cell (WBC) count 4.7 K/mm3 4.4-11.0 [facility] Office Visit Reporton 2024 Office Visit Report Normal [facility] ALP [Catalytic activity/Vol] Ordered By: Yee Rowland on 06-22-2024 Serum or plasma alkaline phosphatase measurement 60 U/L 45-117 [facility] ALT [Catalytic activity/Vol] Ordered By: Yee Rowland on 06-22-2024 Serum or plasma alanine aminotransferase (ALT) measurement 22 U/L 13-56 [facility] Absolute lymphocyte countOrd ered By: Yeejazlyn Rowland on 06-22-2024 Lymphocytes Auto (Unsp spec) [#/Vol] 1.44 10*3/uL 0.83-4.51 [facility] Absolute neutrophil countOrd ered By: Yee Rowland on 06-22-2024 Absolute neutrophil count 2.0 X10^3/uL 2.0-7.7 [facility] Albumin [Mass/Vol]Ordered By : Yee Rowland on 06-22-2024 Serum or plasma albumin measurement (mass/volume) 3.1 g/dL Low 3.2-5.0 [facility] Albumin to globulin ratioOrd ered By: Yeejazlyn Rowland on 06-22-2024 Albumin to globulin ratio 0.9 RATIO 0.9-2.4 [facility] Automated lymphocyte count a s percentage of total leukocytesOrdered By: Yee Rowland on 06-22-2024 Lymphocytes/100 WBC Auto (Unsp spec) 37.7 % 19-41 [facility] Basophil percentageOrdered B y: Yee Rowland on 06-22-2024 Basophils/100 WBC (Bld) 0.5 % 0-1 [facility] Basophil percentage 0.5 % 0-1 [facility] Bilirubin, totalOrdered By: Yee Rowland on 06-22-2024 Bilirubin [Mass/Vol] 0.40 mg/dL 0.20-1.[address] [facility] Bilirubin, total 0.40 mg/dL 0.20-1.00 [facility] Blood urea nitrogen (BUN)/cr eatinine ratioOrdered By: Yee Rowland on 06-22-2024 Blood urea nitrogen (BUN)/creatinine ratio 26.2 RATIO High 10-20 [facility] CBC W/Diff, Automatedon 06-04 Absolute Lymph 1.44 X10 3/uL Normal 0.83-4.51 [facility] Comment on above: Performed By: #### L 500.4050, L100.0100 ####[facility] [address] [place], [address] Absolute Neut 2.0 X10 3/uL Normal 2.0-7.7 [facility] Comment on above: Performed By: #### L 500.4050, L100.0100 ####[facility] [address] [place], [address] Basophils/100 WBC (Bld) 0.5 % Normal 0-1 [facility] Comment on above: Performed By: #### L 500.4050, L100.0100 ####[facility] [address] [place], [address] Eosinophils/100 WBC (Bld) 2.6 % Normal 0-5 [facility] Comment on above: Performed By: #### L 500.4050, L100.0100 ####[facility] [address] [place], [address] Erythrocyte distribution width (RBC) [Ratio] 13.4 % Normal 11.6-14.6 [facility] Comment on above: Performed By: #### L 500.4050, L100.0100 ####[facility] [address] [place], [address] Hematocrit (Bld) [Volume fraction] 34.8 % Low 37-47 [facility] Comment on above: Performed By: #### L 500.4050, L100.0100 ####[facility] [address] [place], [address] Hemoglobin (Bld) [Mass/Vol] 11.5 g/dL Low 12.0-15.0 [facility] Comment on above: Performed By: #### L 500.4050, L100.0100 ####[facility] [address] [place], [address] IG% 0.300 Normal 0.0-0.9 [facility] Comment on above: Result Comment: IG% - Immature Granulocytes (promyelocytes, myelocytes andmetamyelocytes) > 1% indicates that a LEFT SHIFT is Present. Performed By: #### L 500.4050, L100.0100 ####[facility] [address] [place], [address] Lymphocytes/100 WBC (Bld) 37.7 % Normal 19-41 [facility] Comment on above: Performed By: #### L 500.4050, L100.0100 ####[facility] [address] [place], [address] MCH (RBC) [Entitic mass] 32.3 pg High 27.0-32.0 [facility] Comment on above: Performed By: #### L 500.4050, L100.0100 ####[facility] [address] [place], [address] MCHC (RBC) [Mass/Vol] 33.0 g/dL Normal 32-36 [facility] Comment on above: Performed By: #### L 500.4050, L100.0100 ####[facility] [address] [place], [address] MCV (RBC) [Entitic vol] 97.8 fL Normal 81-99 [facility] Comment on above: Performed By: #### L 500.4050, L100.0100 ####[facility] [address] [place], [address] Monocytes/100 WBC (Bld) 7.1 % Normal 0-10 [facility] Comment on above: Performed By: #### L 500.4050, L100.0100 ####[facility] [address] [place], [address] Neutrophils/100 WBC (Bld) 51.8 % Normal 47-70 [facility] Comment on above: Performed By: #### L 500.4050, L100.0100 ####[facility] [address] [place], [address] Nucleated RBC (Bld) [#/Vol] 0 10*3/uL Normal 0-5 [facility] Comment on above: Performed By: #### L 500.4050, L100.0100 ####[facility] [address] [place], [address] Platelet mean volume (Bld) [Entitic vol] 11.1 fL Normal 6.2-12.0 [facility] Comment on above: Performed By: #### L 500.4050, L100.0100 ####[facility] [address] [place], [address] Platelets (Bld) [#/Vol] 192 10*3/uL Normal 150-450 [facility] Comment on above: Performed By: #### L 500.4050, L100.0100 ####[facility] [address] [place], [address] RBC (Bld) [#/Vol] 3.56 10*6/uL Low 4.2-5.4 [facility] Comment on above: Performed By: #### L 500.4050, L100.0100 ####[facility] [address] [place], [address] RDW SD 47.8 fl High 35.1-43.9 [facility] Comment on above: Performed By: #### L 500.4050, L100.0100 ####[facility] [address] [place], [address] WBC (Bld) [#/Vol] 3.8 10*3/uL Low 4.4-11.0 [facility] Comment on above: Performed By: #### L 500.4050, L100.0100 ####[facility] [address] [place], [address] Calcium [Mass/Vol]Ordered By : Yee Rowland on 06-22-2024 Serum or plasma calcium measurement (mass/volume) 8.7 mg/dL 8.5-10.1 [facility] Carbon dioxide measurementOr dered By: Yee Rowland on 06-22-2024 CO2 [Moles/Vol] 25.0 mmol/L 21.0-32.0 [facility] Carbon dioxide measurement 25.0 mmol/L 21.0-32.0 [facility] Chloride measurementOrdered By: Yee Rowland on 06-22-2024 Chloride [Moles/Vol] 110 mmol/L High 98-[address] [facility] Chloride measurement 110 mmol/L High 98-[address] [facility] Comprehensive Metabolic Prof ilon 06-22-2024 Albumin [Mass/Vol] 3.1 g/dL Low 3.2-5.0 [facility] Comment on above: Performed By: #### L 500.4050, L100.0100 ####[facility] [address] [place], [address] Albumin/Globulin [Mass ratio] 0.9 {ratio} Normal 0.9-2.4 [facility] Comment on above: Performed By: #### L 500.4050, L100.0100 ####[facility] [address] [place], [address] ALK P 60 U/L Normal 45-117 [facility] Comment on above: Performed By: #### L 500.4050, L100.0100 ####[facility] [address] [place], [address] ALT [Catalytic activity/Vol] 22 U/L Normal 13-56 [facility] Comment on above: Performed By: #### L 500.4050, L100.0100 ####[facility] [address] [place], [address] AST [Catalytic activity/Vol] 18 U/L Normal 15-37 [facility] Comment on above: Performed By: #### L 500.4050, L100.0100 ####[facility] [address] [place], [address] Bilirubin [Mass/Vol] 0.40 mg/dL Normal 0.20-1.[address] [facility] Comment on above: Result Comment: For patients on eltrombopag therapy, use of Dimension Viola TBIL is not recommended. Performed By: #### L 500.4050, L100.0100 ####[facility] [address] [place], [address] BUN/CRE 26.2 RATIO High 10-20 [facility] Comment on above: Performed By: #### L 500.4050, L100.0100 ####[facility] [address] [place], [address] CA,Total 8.7 mg/dL Normal 8.5-10.1 [facility] Comment on above: Performed By: #### L 500.4050, L100.0100 ####[facility] [address] [place], [address] Chloride [Moles/Vol] 110 mmol/L High 98-[address] [facility] Comment on above: Performed By: #### L 500.4050, L100.0100 ####[facility] [address] [place], [address] CO2 [Moles/Vol] 25.0 mmol/L Normal 21.0-32.0 [facility] Comment on above: Performed By: #### L 500.4050, L100.0100 ####[facility] [address] [place], [address] Creatinine [Mass/Vol] 0.88 mg/dL Normal 0.55-1.02 [facility] Comment on above: Result Comment: The validity of the calculated GFR GFRAA in patients over70 years has not been determined. Clinical correlation isessential. Performed By: #### L 500.4050, L100.0100 ####[facility] [address] [place], [address] EST GFR - AA 82 mL/min Normal >60 [facility] Comment on above: Result Comment: Afri can Tanz[place] GFR Calc Performed By: #### L 500.4050, L100.0100 ####[facility] [address] [place], [address] GAP 6 Normal 5-15 [facility] Comment on above: Performed By: #### L 500.4050, L100.0100 ####[facility] [address] [place], [address] GFR/1.73 sq M.predicted among non-blacks MDRD (S/P/Bld) [Vol rate/Area] 68 mL/min/{1.73_m2} Normal >60 [facility] Comment on above: Result Comment: Non- GFR Calc Performed By: #### L 500.4050, L100.0100 ####[facility] [address] [place], [address] Globulin (S) [Mass/Vol] 3.5 g/dL Normal 2.2-4.2 [facility] Comment on above: Performed By: #### L 500.4050, L100.0100 ####[facility] [address] [place], [address] Glucose [Mass/Vol] 103 mg/dL Normal 74-106 [facility] Comment on above: Result Comment: Fast ing Glucose result from 100 to 125 mg/dLsuggests IMPAIRED HOMEOSTASIS per A.D.A. criteria. Performed By: #### L 500.4050, L100.0100 ####[facility] [address] [place], [address] Potassium [Moles/Vol] 4.1 mmol/L Normal 3.5-5.1 [facility] Comment on above: Performed By: #### L 500.4050, L100.0100 ####[facility] [address] [place], [address] Sodium [Moles/Vol] 141 mmol/L Normal 136-145 [facility] Comment on above: Performed By: #### L 500.4050, L100.0100 ####[facility] [address] [place], [address] T PROT 6.6 g/dL Normal 6.4-8.2 [facility] Comment on above: Performed By: #### L 500.4050, L100.0100 ####[facility] [address] [place], [address] Urea nitrogen [Mass/Vol] 23 mg/dL High 7-18 [facility] Comment on above: Performed By: #### L 500.4050, L100.0100 ####[facility] [address] [place], [address] Creatinine [Mass/Vol]Ordered By: Yee Rowland on 06-22-2024 Serum or plasma creatinine measurement (mass/volume) 0.88 mg/dL 0.55-1.02 [facility] Eosinophil percentageOrdered By: Yee Rowland on 06-22-2024 Eosinophils/100 WBC (Bld) 2.6 % 0-5 [facility] Eosinophil percentage 2.6 % 0-5 [facility] Erythrocyte distribution wid th (RBC) [Entitic vol]Ordered By: Yee Rowland on 06-22-2024 Erythrocyte distribution width standard deviation 47.8 fl High 35.1-43.9 [facility] Erythrocyte distribution wid th (RBC) [Ratio]Ordered By: Yee Rowland on 06-22-2024 Erythrocyte distribution width ratio 13.4 % 11.6-14.6 [facility] Erythrocyte distribution wid th ratioOrdered By: Yee Rowland on 06-22-2024 Erythrocyte distribution width (RBC) [Ratio] 13.4 % 11.6-14.6 [facility] Erythrocyte distribution wid th standard deviationOrdered By: Yee Rowland on 06-22-2024 Erythrocyte distribution width (RBC) [Ratio] 47.8 fl High 35.1-43.9 [facility] Estimated glomerular filtrat ion rate (GFR) AmericanOrdered By: Yee Rowland on 06-22-2024 Estimated glomerular filtration rate (GFR) 82 mL/min >60 [facility] Glomerular filtration rate ( GFR) estimationOrdered By: Yee Rowland on 06-22-2024 GFR/1.73 sq M.predicted among non-blacks MDRD (S/P/Bld) [Vol rate/Area] 68 mL/min/{1.73_m2} >60 [facility] Glomerular filtration rate (GFR) estimation 68 mL/min >60 [facility] Glucose measurementOrdered B y: Yee Rowland on 06-22-2024 Glucose [Mass/Vol] 103 mg/dL 74-106 [facility] Glucose measurement 103 mg/dL 74-106 [facility] Hematocrit Auto (Bld) [Volum e fraction]Ordered By: Yee Rowland on 06-22-2024 Hematocrit (Bld) [Volume fraction] 34.8 % Low 37-47 [facility] Automated blood hematocrit (percentage) 34.8 % Low 37-47 [facility] Hemoglobin measurementOrdere d By: Yee Rowland on 06-22-2024 Hemoglobin (Bld) [Mass/Vol] 11.5 g/dL Low 12.0-15.0 [facility] Hemoglobin measurement 11.5 g/dL Low 12.0-15.0 [facility] Immature granulocytes/100 WB C Auto (Bld)Ordered By: Yee Rowland on 06-22-2024 Immature granulocytes/100 WBC (Bld) 0.300 % 0.0-0.9 [facility] Automated immature granulocyte percentage 0.300 % 0.0-0.9 [facility] Lymphocytes Auto (Unsp spec) [#/Vol]Ordered By: Yee Rowland on 06-22-2024 Absolute lymphocyte count 1.44 X10^3/uL 0.83-4.51 [facility] Lymphocytes/100 WBC Auto (Un sp spec)Ordered By: Yee Rowland on 06-22-2024 Automated lymphocyte count as percentage of total leukocytes 37.7 % 19-41 [facility] MCV (RBC) [Entitic vol]Order ed By: Yee Rowland on 06-22-2024 MCV (mean corpuscular volume) determination 97.8 fL 81-99 [facility] MCV (mean corpuscular volume ) determinationOrdered By: Yee Rowland on 06-22-2024 MCV (RBC) [Entitic vol] 97.8 fL 81-99 [facility] Mean corpuscular hemoglobin (MCH) determinationOrdered By: Yee Rowland on 06-22-2024 MCH (RBC) [Entitic mass] 32.3 pg High 27.0-32.0 [facility] Mean corpuscular hemoglobin (MCH) determination 32.3 pg High 27.0-32.0 [facility] Mean corpuscular hemoglobin concentration (MCHC) determinationOrdered By: Yee Rowland on 06-22-2024 Mean corpuscular hemoglobin concentration (MCHC) determination 33.0 g/dL 32-36 [facility] Mean platelet volume determi nationOrdered By: Yee Rowland on 06-22-2024 Mean platelet volume determination 11.1 fl 6.2-12.0 [facility] Monocyte percentageOrdered B y: Yee Rowland on 06-22-2024 Monocytes/100 WBC (Bld) 7.1 % 0-10 [facility] Monocyte percentage 7.1 % 0-10 [facility] Neutrophil percentageOrdered By: Yee Rowland on 06-22-2024 Neutrophils/100 WBC (Bld) 51.8 % 47-70 [facility] Neutrophil percentage 51.8 % 47-70 [facility] No Panel InformationOrdered By: Yee Rowland on 06-22-2024 18 U/L 15-37 [facility] Nucleated red blood cell per centageOrdered By: Yee Rowland on 06-22-2024 Nucleated red blood cell percentage 0 % 0-5 [facility] Platelet countOrdered By: Rene Rowland on 06-22-2024 Platelets (Bld) [#/Vol] 192 10*3/uL 150-450 [facility] Platelet count 192 K/mm3 150-450 [facility] Potassium measurementOrdered By: Yee Rowland on 06-22-2024 Potassium [Moles/Vol] 4.1 mmol/L 3.5-5.1 [facility] Potassium measurement 4.1 mmol/L 3.5-5.1 [facility] RBC Auto (Bld) [#/Vol]Ordere d By: Yee Rowland on 06-22-2024 RBC (Bld) [#/Vol] 3.56 10*6/uL Low 4.2-5.4 [facility] Automated blood erythrocyte count 3.56 M/mm3 Low 4.2-5.4 [facility] Serum anion gap measurementO rdered By: Yee Rowland on 06-22-2024 Serum anion gap measurement 6 5-15 [facility] Serum globulin measurementOr dered By: Yee Rowland on 06-22-2024 Globulin (S) [Mass/Vol] 3.5 g/dL 2.2-4.2 [facility] Serum globulin measurement 3.5 g/dL 2.2-4.2 [facility] Serum or plasma alanine carvalho otransferase (ALT) measurementOrdered By: Yee Rowland on 06-22-2024 ALT [Catalytic activity/Vol] 22 U/L 13-56 [facility] Serum or plasma albumin loretta urement (mass/volume)Ordered By: Yee Rowland on 06-22-2024 Albumin [Mass/Vol] 3.1 g/dL Low 3.2-5.0 [facility] Serum or plasma alkaline dima sphatase measurementOrdered By: Yee Rowland on 06-22-2024 ALP [Catalytic activity/Vol] 60 U/L 45-117 [facility] Serum or plasma calcium loretta urement (mass/volume)Ordered By: Yee Rowland on 06-22-2024 Calcium [Mass/Vol] 8.7 mg/dL 8.5-10.1 [facility] Serum or plasma creatinine m easurement (mass/volume)Ordered By: Yee Rowland on 06-22-2024 Creatinine [Mass/Vol] 0.88 mg/dL 0.55-1.02 [facility] Serum or plasma urea nitroge n measurement (mass/volume)Ordered By: Yee Rowland on 06-22-2024 Urea nitrogen [Mass/Vol] 23 mg/dL High 11-18 [facility] Sodium levelOrdered By: Karl Rowland on 06-22-2024 Sodium [Moles/Vol] 141 mmol/L 136-145 [facility] Sodium level 141 mmol/L 136-145 [facility] Total proteinOrdered By: Prasad Rowland on 06-22-2024 Protein [Mass/Vol] 6.6 g/dL 6.4-8.2 [facility] Total protein 6.6 g/dL 6.4-8.2 [facility] Urea nitrogen [Mass/Vol]Orde red By: Yee Rowland on 06-22-2024 Serum or plasma urea nitrogen measurement (mass/volume) 23 mg/dL High 11-18 [facility] White blood cell (WBC) count Ordered By: Yee Rowland on 06-22-2024 WBC (Bld) [#/Vol] 3.8 10*3/uL Low 4.4-11.0 [facility] White blood cell (WBC) count 3.8 K/mm3 Low 4.4-11.0 [facility] SCRN MAMM (CAD)W/PAUL BILATo n 06-07-2024 SCRN MAMM (CAD)W/PAUL BILAT Normal [facility] Internal Medicine Office Vis iton 05-20-2024 Internal Medicine Office Visit Normal [facility] No Panel Informationon 05-20 6.5 % High 4.2-6.3 [facility] ALP [Catalytic activity/Vol] Ordered By: Pepe Ruiz on 05-16-2024 Serum or plasma alkaline phosphatase measurement 66 U/L 45-117 [facility] ALT [Catalytic activity/Vol] Ordered By: Pepe Ruiz on 05-16-2024 Serum or plasma alanine aminotransferase (ALT) measurement 22 U/L 13-56 [facility] Albumin [Mass/Vol]Ordered By : Pepe Ruiz on 05-16-2024 Serum or plasma albumin measurement (mass/volume) 3.1 g/dL Low 3.2-5.0 [facility] Albumin to globulin ratioOrd ered By: Pepe Ruiz on 05-16-2024 Albumin to globulin ratio 0.9 RATIO 0.9-2.4 [facility] Ammoniaon 05-16-2024 Ammonia (P) [Moles/Vol] 39.0 umol/L High 11-32 [facility] Comment on above: Performed By: #### L 500.4050, L501.8100, L100.0500, L503.5510 ####[facility] [address] [place], [address] Bilirubin, totalOrdered By: Pepe Ruiz on 05-16-2024 Bilirubin, total 0.30 mg/dL 0.20-1.00 [facility] Blood urea nitrogen (BUN)/cr eatinine ratioOrdered By: Pepe Ruiz on 05-16-2024 Blood urea nitrogen (BUN)/creatinine ratio 23.7 RATIO High 10-20 [facility] CBC-Complete Blood Cnt No Di ffon 05-16-2024 Erythrocyte distribution width (RBC) [Ratio] 13.5 % Normal 11.6-14.6 [facility] Comment on above: Performed By: #### L 500.4050, L501.8100, L100.0500, L503.5510 ####[facility] [address] [place], [address] Hematocrit (Bld) [Volume fraction] 35.5 % Low 37-47 [facility] Comment on above: Performed By: #### L 500.4050, L501.8100, L100.0500, L503.5510 ####[facility] [address] [place], [address] Hemoglobin (Bld) [Mass/Vol] 11.4 g/dL Low 12.0-15.0 [facility] Comment on above: Performed By: #### L 500.4050, L501.8100, L100.0500, L503.5510 ####[facility] [address] [place], [address] MCH (RBC) [Entitic mass] 31.6 pg Normal 27.0-32.0 [facility] Comment on above: Performed By: #### L 500.4050, L501.8100, L100.0500, L503.5510 ####[facility] [address] [place], [address] MCHC (RBC) [Mass/Vol] 32.1 g/dL Normal 32-36 [facility] Comment on above: Performed By: #### L 500.4050, L501.8100, L100.0500, L503.5510 ####[facility] [address] [place], [address] MCV (RBC) [Entitic vol] 98.3 fL Normal 81-99 [facility] Comment on above: Performed By: #### L 500.4050, L501.8100, L100.0500, L503.5510 ####[facility] [address] [place], [address] Platelet mean volume (Bld) [Entitic vol] 11.6 fL Normal 6.2-12.0 [facility] Comment on above: Performed By: #### L 500.4050, L501.8100, L100.0500, L503.5510 ####[facility] [address] [place], [address] Platelets (Bld) [#/Vol] 173 10*3/uL Normal 150-450 [facility] Comment on above: Performed By: #### L 500.4050, L501.8100, L100.0500, L503.5510 ####[facility] [address] [place], [address] RBC (Bld) [#/Vol] 3.61 10*6/uL Low 4.2-5.4 [facility] Comment on above: Performed By: #### L 500.4050, L501.8100, L100.0500, L503.5510 ####[facility] [address] [place], [address] RDW SD 49.5 fl High 35.1-43.9 [facility] Comment on above: Performed By: #### L 500.4050, L501.8100, L100.0500, L503.5510 ####[facility] [address] [place], [address] WBC (Bld) [#/Vol] 3.5 10*3/uL Low 4.4-11.0 [facility] Comment on above: Performed By: #### L 500.4050, L501.8100, L100.0500, L503.5510 ####[facility] [address] [place], [address] Calcium [Mass/Vol]Ordered By : Pepe Ruiz on 05-16-2024 Serum or plasma calcium measurement (mass/volume) 8.7 mg/dL 8.5-10.1 [facility] Carbon dioxide measurementOr dered By: Pepe Ruiz on 05-16-2024 Carbon dioxide measurement 26.0 mmol/L 21.0-32.0 [facility] Chloride measurementOrdered By: Pepe Ruiz on 05-16-2024 Chloride measurement 111 mmol/L High 98-[address] [facility] Comprehensive Metabolic Prof ilon 05-16-2024 Albumin [Mass/Vol] 3.1 g/dL Low 3.2-5.0 [facility] Comment on above: Performed By: #### L 500.4050, L501.8100, L100.0500, L503.5510 ####[facility] [address] [place], [address] Albumin/Globulin [Mass ratio] 0.9 {ratio} Normal 0.9-2.4 [facility] Comment on above: Performed By: #### L 500.4050, L501.8100, L100.0500, L503.5510 ####[facility] [address] [place], [address] ALK P 66 U/L Normal 45-117 [facility] Comment on above: Performed By: #### L 500.4050, L501.8100, L100.0500, L503.5510 ####[facility] [address] [place], [address] ALT [Catalytic activity/Vol] 22 U/L Normal 13-56 [facility] Comment on above: Performed By: #### L 500.4050, L501.8100, L100.0500, L503.5510 ####[facility] [address] [place], [address] AST [Catalytic activity/Vol] 15 U/L Normal 15-37 [facility] Comment on above: Performed By: #### L 500.4050, L501.8100, L100.0500, L503.5510 ####[facility] [address] [place], [address] Bilirubin [Mass/Vol] 0.30 mg/dL Normal 0.20-1.[address] [facility] Comment on above: Result Comment: For patients on eltrombopag therapy, use of Dimension Viola TBIL is not recommended. Performed By: #### L 500.4050, L501.8100, L100.0500, L503.5510 ####[facility] [address] [place], [address] BUN/CRE 23.7 RATIO High 10-20 [facility] Comment on above: Performed By: #### L 500.4050, L501.8100, L100.0500, L503.5510 ####[facility] [address] [place], [address] CA,Total 8.7 mg/dL Normal 8.5-10.1 [facility] Comment on above: Performed By: #### L 500.4050, L501.8100, L100.0500, L503.5510 ####[facility] [address] [place], [address] Chloride [Moles/Vol] 111 mmol/L High 98-[address] [facility] Comment on above: Performed By: #### L 500.4050, L501.8100, L100.0500, L503.5510 ####[facility] [address] [place], [address] CO2 [Moles/Vol] 26.0 mmol/L Normal 21.0-32.0 [facility] Comment on above: Performed By: #### L 500.4050, L501.8100, L100.0500, L503.5510 ####[facility] [address] [place], [address] Creatinine [Mass/Vol] 0.93 mg/dL Normal 0.55-1.02 [facility] Comment on above: Result Comment: The validity of the calculated GFR GFRAA in patients over70 years has not been determined. Clinical correlation isessential. Performed By: #### L 500.4050, L501.8100, L100.0500, L503.5510 ####[facility] [address] [place], [address] EST GFR - AA 76 mL/min Normal >60 [facility] Comment on above: Result Comment: Afri can Tanz[place] GFR Calc Performed By: #### L 500.4050, L501.8100, L100.0500, L503.5510 ####[facility] [address] [place], [address] GAP 3 Low 5-15 [facility] Comment on above: Performed By: #### L 500.4050, L501.8100, L100.0500, L503.5510 ####[facility] [address] [place], [address] GFR/1.73 sq M.predicted among non-blacks MDRD (S/P/Bld) [Vol rate/Area] 63 mL/min/{1.73_m2} Normal >60 [facility] Comment on above: Result Comment: Non- GFR Calc Performed By: #### L 500.4050, L501.8100, L100.0500, L503.5510 ####[facility] [address] [place], [address] Globulin (S) [Mass/Vol] 3.6 g/dL Normal 2.2-4.2 [facility] Comment on above: Performed By: #### L 500.4050, L501.8100, L100.0500, L503.5510 ####[facility] [address] [place], [address] Glucose [Mass/Vol] 122 mg/dL High 74-106 [facility] Comment on above: Result Comment: Fast ing Glucose result from 100 to 125 mg/dLsuggests IMPAIRED HOMEOSTASIS per A.D.A. criteria. Performed By: #### L 500.4050, L501.8100, L100.0500, L503.5510 ####[facility] [address] [place], [address] Potassium [Moles/Vol] 4.3 mmol/L Normal 3.5-5.1 [facility] Comment on above: Performed By: #### L 500.4050, L501.8100, L100.0500, L503.5510 ####[facility] [address] [place], [address] Sodium [Moles/Vol] 140 mmol/L Normal 136-145 [facility] Comment on above: Performed By: #### L 500.4050, L501.8100, L100.0500, L503.5510 ####[facility] [address] [place], [address] T PROT 6.7 g/dL Normal 6.4-8.2 [facility] Comment on above: Performed By: #### L 500.4050, L501.8100, L100.0500, L503.5510 ####[facility] [address] [place], [address] Urea nitrogen [Mass/Vol] 22 mg/dL High 7-18 [facility] Comment on above: Performed By: #### L 500.4050, L501.8100, L100.0500, L503.5510 ####[facility] [address] [place], [address] Creatinine [Mass/Vol]Ordered By: Pepe Ruiz on 05-16-2024 Serum or plasma creatinine measurement (mass/volume) 0.93 mg/dL 0.55-1.02 [facility] Erythrocyte distribution wid th (RBC) [Entitic vol]Ordered By: Pepe Ruiz on 05-16-2024 Erythrocyte distribution width standard deviation 49.5 fl High 35.1-43.9 [facility] Erythrocyte distribution wid th (RBC) [Ratio]Ordered By: Pepe Ruiz on 05-16-2024 Erythrocyte distribution width ratio 13.5 % 11.6-14.6 [facility] Estimated glomerular filtrat ion rate (GFR) AmericanOrdered By: Pepe Ruiz on 05-16-2024 Estimated glomerular filtration rate (GFR) 76 mL/min >60 [facility] Glomerular filtration rate ( GFR) estimationOrdered By: Pepe Ruiz on 05-16-2024 Glomerular filtration rate (GFR) estimation 63 mL/min >60 [facility] Glucose measurementOrdered B y: Pepe Ruiz on 05-16-2024 Glucose measurement 122 mg/dL High 74-106 [facility] Hematocrit Auto (Bld) [Volum e fraction]Ordered By: Pepe Ruiz on 05-16-2024 Automated blood hematocrit (percentage) 35.5 % Low 37-47 [facility] Hemoglobin measurementOrdere d By: Pepe Ruiz on 05-16-2024 Hemoglobin measurement 11.4 g/dL Low 12.0-15.0 [facility] MCV (RBC) [Entitic vol]Order ed By: Pepe Ruiz on 05-16-2024 MCV (mean corpuscular volume) determination 98.3 fL 81-99 [facility] Mean corpuscular hemoglobin (MCH) determinationOrdered By: Pepe Ruiz on 05-16-2024 Mean corpuscular hemoglobin (MCH) determination 31.6 pg 27.0-32.0 [facility] Mean corpuscular hemoglobin concentration (MCHC) determinationOrdered By: Pepe Ruiz on 05-16-2024 Mean corpuscular hemoglobin concentration (MCHC) determination 32.1 g/dL 32-36 [facility] Mean platelet volume determi nationOrdered By: Pepe Ruiz on 05-16-2024 Mean platelet volume determination 11.6 fl 6.2-12.0 [facility] Neurology Visit Reporton Neurology Visit Report Normal [facility] No Panel InformationOrdered By: Pepe Ruiz on 05-16-2024 15 U/L 15-37 [facility] Platelet countOrdered By: Ra cheyanne Ruiz on 05-16-2024 Platelet count 173 K/mm3 150-450 [facility] Potassium measurementOrdered By: Pepe Ruiz on 05-16-2024 Potassium measurement 4.3 mmol/L 3.5-5.1 [facility] RBC Auto (Bld) [#/Vol]Ordere d By: Pepe Ruiz on 05-16-2024 Automated blood erythrocyte count 3.61 M/mm3 Low 4.2-5.4 [facility] Serum anion gap measurementO rdered By: Pepe Ruiz on 05-16-2024 Serum anion gap measurement 3 Low 5-15 [facility] Serum globulin measurementOr dered By: Pepe Ruiz on 05-16-2024 Serum globulin measurement 3.6 g/dL 2.2-4.2 [facility] Sodium levelOrdered By: Jimmieraymundo yorknapoleon Ruiz on 05-16-2024 Sodium level 140 mmol/L 136-145 [facility] Total proteinOrdered By: Jimmie juannapoleon Ruiz on 05-16-2024 Total protein 6.7 g/dL 6.4-8.2 [facility] Urea nitrogen [Mass/Vol]Orde red By: Pepe Ruiz on 05-16-2024 Serum or plasma urea nitrogen measurement (mass/volume) 22 mg/dL High 7-18 [facility] Valproate levelOrdered By: Tere Ruiz on 05-16-2024 Valproate level 74 ug/mL 50-100 [facility] Valproic Acid (Depakene) Lev tommy 05-16-2024 VALPROIC ACID 74 ug/mL Normal 50-100 [facility] Comment on above: Performed By: #### L 500.4050, L501.8100, L100.0500, L503.5510 ####[facility] [address] [place], [place], [id number] Venous blood ammonia measure mentOrdered By: Pepe Ruiz on 05-16-2024 Venous blood ammonia measurement 39.0 umol/L High 11-32 [facility] White blood cell (WBC) count Ordered By: Pepe Ruiz on 05-16-2024 White blood cell (WBC) count 3.5 K/mm3 Low 4.4-11.0 [facility] 6 Minute Walk Teston 04-25-2 024 6 Minute Walk Test Normal [facility] Office Visit Reporton 2023 Office Visit Report Normal [facility] Cardiology Visit Reporton Cardiology Visit Report Normal [facility] Urine Cultureon 02-21-2024 URC Below infection natalie corley Mixed Gram Positive Organisms [place] Count 1000-10,000 MIXC Mixed contaminants. Submit a new specimen if indicated. Normal [facility] Comment on above: Performed By: #### M 100.2200, L400.0001 ####[facility] [address] [place], [address] Internal Medicine Office Vis iton 02-19-2024 Internal Medicine Office Visit Normal [facility] Urinalysis, Completeon 02-18 BACTERIA 0 SEEN Normal None Seen [facility] Comment on above: Order Comment: COLLE CTOR TO SPECIFY Performed By: #### M 100.2200, L400.0001 ####[facility] [address] [place], [address] EPI,SQUAMOUS 0 SEEN Normal 5-10 [facility] Comment on above: Order Comment: FERNANDO CTOR TO SPECIFY Performed By: #### M 100.2200, L400.0001 ####[facility] [address] [place], [address] Mucus Ql (Urine sed) [address] [facility] Comment on above: Order Comment: FERNANDO CTOR TO SPECIFY Performed By: #### M 100.2200, L400.0001 ####[facility] [address] [place], [address] RBC 0 SEEN Normal 0-5 [facility] Comment on above: Order Comment: [facility] CTOR TO SPECIFY Performed By: #### M 100.2200, L400.0001 ####[facility] [address] [place], [address] WBC 0 SEEN Normal 0-5 [facility] Comment on above: Order Comment: FERNANDO CTOR TO SPECIFY Performed By: #### M 100.2200, L400.0001 ####[facility] [address] [place], [address] Ankle min 3 Viewson 02-14-20 24 Ankle min 3 Views Normal [facility] Emergency Department Summary on 02-14-2024 Emergency Department Summary Normal [facility] Office Visit Reporton 2023 Office Visit Report Normal [facility] Neurology Visit Reporton Neurology Visit Report Normal [facility] Internal Medicine Office Vis iton 12-23-2023 Internal Medicine Office Visit Normal [facility] Office Visit Reporton 08-14- 2024 Office Visit Report Normal [facility] Pulmonary Visit Reporton Pulmonary Visit Report Normal [facility] Bilirubin, Directon 12-02-19 24 Bilirubin.direct [Mass/Vol] 0.08 mg/dL Normal 0.00-0.30 [facility] Comment on above: Order Comment: CMP, CBCD- , LIPID- Performed By: #### L 501.4700, L100.0100, L500.4050, L500.4100 ####[facility] [address] [place], [address] CBC W/Diff, Automatedon 11-03 Absolute Lymph 1.34 X10 3/uL Normal 0.83-4.51 [facility] Comment on above: Order Comment: CMP, CBCD- , LIPID- Performed By: #### L 501.4700, L100.0100, L500.4050, L500.4100 ####[facility] [address] [place], [address] Absolute Neut 2.3 X10 3/uL Normal 2.0-7.7 [facility] Comment on above: Order Comment: CMP, CBCD- , LIPID- Performed By: #### L 501.4700, L100.0100, L500.4050, L500.4100 ####[facility] [address] [place], [address] Basophils/100 WBC (Bld) 0.5 % Normal 0-1 [facility] Comment on above: Order Comment: CMP, CBCD- , LIPID- Performed By: #### L 501.4700, L100.0100, L500.4050, L500.4100 ####[facility] [address] [place], [address] Eosinophils/100 WBC (Bld) 4.1 % Normal 0-5 [facility] Comment on above: Order Comment: CMP, CBCD- MICHAELLE MANE Performed By: #### L 501.4700, L100.0100, L500.4050, L500.4100 ####[facility] [address] [place], [address] Erythrocyte distribution width (RBC) [Ratio] 13.2 % Normal 11.6-14.6 [facility] Comment on above: Order Comment: MYA, CBCD- MICHAELLE MANE Performed By: #### L 501.4700, L100.0100, L500.4050, L500.4100 ####[facility] [address] [place], [address] Hematocrit (Bld) [Volume fraction] 34.4 % Low 37-47 [facility] Comment on above: Order Comment: MYA, CBCD- MICHAELLE MANE Performed By: #### L 501.4700, L100.0100, L500.4050, L500.4100 ####[facility] [address] [place], [address] Hemoglobin (Bld) [Mass/Vol] 11.3 g/dL Low 12.0-15.0 [facility] Comment on above: Order Comment: CMP, CBCD- MICHAELLE MANE Performed By: #### L 501.4700, L100.0100, L500.4050, L500.4100 ####[facility] [address] [place], [address] IG% 0.500 Normal 0.0-0.9 [facility] Comment on above: Order Comment: MYA, CBCD- MICHAELLE MANE Result Comment: IG% - Immature Granulocytes (promyelocytes, myelocytes andmetamyelocytes) > 1% indicates that a LEFT SHIFT is Present. Performed By: #### L 501.4700, L100.0100, L500.4050, L500.4100 ####[facility] [address] [place], [address] Lymphocytes/100 WBC (Bld) 32.3 % Normal 19-41 [facility] Comment on above: Order Comment: CMP, CBCD- , LIPID- Performed By: #### L 501.4700, L100.0100, L500.4050, L500.4100 ####[facility] [address] [place], [address] MCH (RBC) [Entitic mass] 32.2 pg High 27.0-32.0 [facility] Comment on above: Order Comment: CMP, CBCD- , LIPIDSuellen MÁRQUEZ Performed By: #### L 501.4700, L100.0100, L500.4050, L500.4100 ####[facility] [address] [place], [address] MCHC (RBC) [Mass/Vol] 32.8 g/dL Normal 32-36 [facility] Comment on above: Order Comment: CMP, CBCD- , LIPIDSuellen MÁRQUEZ Performed By: #### L 501.4700, L100.0100, L500.4050, L500.4100 ####[facility] [address] [place], [address] MCV (RBC) [Entitic vol] 98.0 fL Normal 81-99 [facility] Comment on above: Order Comment: CMP, CBCD- MICHAELLE MANE Performed By: #### L 501.4700, L100.0100, L500.4050, L500.4100 ####[facility] [address], [address] Monocytes/100 WBC (Bld) 7.0 % Normal 0-10 [facility] Comment on above: Order Comment: CMP, CBCD- MICHAELLE MANE Performed By: #### L 501.4700, L100.0100, L500.4050, L500.4100 ####[facility] [address] [place], [address] Neutrophils/100 WBC (Bld) 55.6 % Normal 47-70 [facility] Comment on above: Order Comment: CMP, CBCD- , MICHAELLE MÁRQUEZ Performed By: #### L 501.4700, L100.0100, L500.4050, L500.4100 ####[facility] [address] [place], [address] Nucleated RBC (Bld) [#/Vol] 0 10*3/uL Normal 0-5 [facility] Comment on above: Order Comment: CMP, CBCD- MICHAELLE MANE Performed By: #### L 501.4700, L100.0100, L500.4050, L500.4100 ####[facility] [address] [place], [address] Platelet mean volume (Bld) [Entitic vol] 11.3 fL Normal 6.2-12.0 [facility] Comment on above: Order Comment: CMP, CBCD- MICHAELLE MANE Performed By: #### L 501.4700, L100.0100, L500.4050, L500.4100 ####[facility] [address] [place], [address] Platelets (Bld) [#/Vol] 207 10*3/uL Normal 150-450 [facility] Comment on above: Order Comment: CMP, CBCD- MICHAELLE MANE Performed By: #### L 501.4700, L100.0100, L500.4050, L500.4100 ####[facility] [address] [place], [address] RBC (Bld) [#/Vol] 3.51 10*6/uL Low 4.2-5.4 [facility] Comment on above: Order Comment: CMP, CBCD- , LIPID- Performed By: #### L 501.4700, L100.0100, L500.4050, L500.4100 ####[facility] [address] [place], [address] RDW SD 47.1 fl High 35.1-43.9 [facility] Comment on above: Order Comment: CMP, CBCD- , LIPID- Performed By: #### L 501.4700, L100.0100, L500.4050, L500.4100 ####[facility] [address] [place], [address] WBC (Bld) [#/Vol] 4.2 10*3/uL Low 4.4-11.0 [facility] Comment on above: Order Comment: CMP, CBCD- , LIPID- Performed By: #### L 501.4700, L100.0100, L500.4050, L500.4100 ####[facility] [address] [place], [address] Comprehensive Metabolic Prof [facility] 12-02-2023 Albumin [Mass/Vol] 3.0 g/dL Low 3.2-5.0 [facility] Comment on above: Order Comment: CMP, CBCD- , LIPID- Performed By: #### L 501.4700, L100.0100, L500.4050, L500.4100 ####[facility] [address] [place], [address] Albumin/Globulin [Mass ratio] 0.8 {ratio} Low 0.9-2.4 [facility] Comment on above: Order Comment: CMP, CBCD- , LIPIDSuellen MÁRQUEZ Performed By: #### L 501.4700, L100.0100, L500.4050, L500.4100 ####[facility] [address] [place], [address] ALK P 70 U/L Normal 45-117 [facility] Comment on above: Order Comment: CMP, CBCD- , MICHAELLE MÁRQUEZ Performed By: #### L 501.4700, L100.0100, L500.4050, L500.4100 ####[facility] [address] [place], [address] ALT [Catalytic activity/Vol] 23 U/L Normal 13-56 [facility] Comment on above: Order Comment: CMP, CBCD- MICHAELLE MANE Performed By: #### L 501.4700, L100.0100, L500.4050, L500.4100 ####[facility] [address] [place], [address] AST [Catalytic activity/Vol] 14 U/L Low 15-37 [facility] Comment on above: Order Comment: CMP, CBCD- MICHAELLE MANE Performed By: #### L 501.4700, L100.0100, L500.4050, L500.4100 ####[facility] [address] [place], [address] BUN/CRE 15.6 RATIO Normal 10-20 [facility] Comment on above: Order Comment: MYA, CBCD- MICHAELLE MANE Performed By: #### L 501.4700, L100.0100, L500.4050, L500.4100 ####[facility] [address] [place], [address] CA,Total 8.4 mg/dL Low 8.5-10.1 [facility] Comment on above: Order Comment: CMP, CBCD- , LIPID- Performed By: #### L 501.4700, L100.0100, L500.4050, L500.4100 ####[facility] [address] [place], [address] Chloride [Moles/Vol] 112 mmol/L High 98-[address] [facility] Comment on above: Order Comment: CMP, CBCD- , LIPID- Performed By: #### L 501.4700, L100.0100, L500.4050, L500.4100 ####[facility] [address] [place], [address] CO2 [Moles/Vol] 28.0 mmol/L Normal 21.0-32.0 [facility] Comment on above: Order Comment: CMP, CBCD- , LIPID- Performed By: #### L 501.4700, L100.0100, L500.4050, L500.4100 ####[facility] [address] [place], [address] Creatinine [Mass/Vol] 0.96 mg/dL Normal 0.55-1.02 [facility] Comment on above: Order Comment: CMP, CBCD- , LIPID- Result Comment: The validity of the calculated GFR GFRAA in patients over70 years has not been determined. Clinical correlation isessential. Performed By: #### L 501.4700, L100.0100, L500.4050, L500.4100 ####[facility] [address] [place], [address] EST GFR - AA 74 mL/min Normal >60 [facility] Comment on above: Order Comment: ED ROQUE- , MICHAELLE MÁRQUEZ Result Comment: Afri can Tanzanian GFR Calc Performed By: #### L 501.4700, L100.0100, L500.4050, L500.4100 ####[facility] [address] [place], [address] GAP 4 Low 5-15 [facility] Comment on above: Order Comment: ED ROQUE- , MICHAELLE MÁRQUEZ Performed By: #### L 501.4700, L100.0100, L500.4050, L500.4100 ####[facility] [address] [place], [address] GFR/1.73 sq M.predicted among non-blacks MDRD (S/P/Bld) [Vol rate/Area] 61 mL/min/{1.73_m2} Normal >60 [facility] Comment on above: Order Comment: STAR ROQUE LIPID- DR.ROOF Result Comment: Non- GFR Calc Performed By: #### L 501.4700, L100.0100, L500.4050, L500.4100 ####[facility] [address] [place], [address] Globulin (S) [Mass/Vol] 3.8 g/dL Normal 2.2-4.2 [facility] Comment on above: Order Comment: ED ROQUE- MICHAELLE MANE Performed By: #### L 501.4700, L100.0100, L500.4050, L500.4100 ####[facility] [address] [place], [address] Glucose [Mass/Vol] 126 mg/dL High 74-106 [facility] Comment on above: Order Comment: STAR ROQUE LIPID- DR.ROOF Result Comment: Fast ing Glucose result greater than or equal to 126 mg/dLsuggests DIABETES MELLITUS per A.D.A. criteria. Performed By: #### L 501.4700, L100.0100, L500.4050, L500.4100 ####[facility] [address] [place], [address] Potassium [Moles/Vol] 3.9 mmol/L Normal 3.5-5.1 [facility] Comment on above: Order Comment: CMP, CBCD- , LIPID- Performed By: #### L 501.4700, L100.0100, L500.4050, L500.4100 ####[facility] [address] [place], [address] Sodium [Moles/Vol] 144 mmol/L Normal 136-145 [facility] Comment on above: Order Comment: MYA, CBCD- , LIPIDSuellen MÁRQUEZ Performed By: #### L 501.4700, L100.0100, L500.4050, L500.4100 ####[facility] [address] [place], [address] T BILI < 0.10 Low 0.20-1.00 [facility] Comment on above: Order Comment: MYA, CBCD- , LIPID- Result Comment: For patients on eltrombopag therapy, use of Dimension Viola TBIL is not recommended. Performed By: #### L 501.4700, L100.0100, L500.4050, L500.4100 ####[facility] [address] [place], [address] T PROT 6.8 g/dL Normal 6.4-8.2 [facility] Comment on above: Order Comment: MYA, CBCD- , LIPIDSuellen MÁRQUEZ Performed By: #### L 501.4700, L100.0100, L500.4050, L500.4100 ####[facility] [address] [place], [address] Urea nitrogen [Mass/Vol] 15 mg/dL Normal 7-18 [facility] Comment on above: Order Comment: CMP, CBCD- , LIPID- Performed By: #### L 501.4700, L100.0100, L500.4050, L500.4100 ####[facility] [address] [place], [address] Internal Medicine Office Vis iton 12-02-2023 Internal Medicine Office Visit Normal [facility] Lipid Profileon 12-02-2023 Cholesterol [Mass/Vol] 155 mg/dL Normal 200 [facility] Comment on above: Order Comment: CMP, CBCD- , LIPID- Result Comment: <200 mg/dL Desirable 200-240 mg/dL Borderline >240 mg/dL High Risk Performed By: #### L 501.4700, L100.0100, L500.4050, L500.4100 ####[facility] [address] [place], [address] Cholesterol in HDL [Mass/Vol] 56 mg/dL Normal [facility] Comment on above: Order Comment: CMP, CBCD- , LIPID- Result Comment: The drugs N-Acetylcysteine and Metamizole may falselydepress this assay. Reference Range HDL <40 mg/dL Low HDL Cholesterol HDL >or= 60 mg/dL High HDL Cholesterol Performed By: #### L 501.4700, L100.0100, L500.4050, L500.4100 ####[facility] [address] [place], [address] Cholesterol in LDL [Mass/Vol] 85 mg/dL Normal 0-130 [facility] Comment on above: Order Comment: CMP, CBCD- , LIPID- Performed By: #### L 501.4700, L100.0100, L500.4050, L500.4100 ####[facility] [address] [place], [address] Cholesterol in VLDL [Mass/Vol] 14 mg/dL Normal 5-40 [facility] Comment on above: Order Comment: CMP, CBCD- , LIPID- Performed By: #### L 501.4700, L100.0100, L500.4050, L500.4100 ####[facility] [address] [place], [address] Triglyceride [Mass/Vol] 72 mg/dL Normal [facility] Comment on above: Order Comment: CMP, CBCD- , LIPID- Result Comment: The drugs N-Acetylcysteine and Metamizole may falselydepress this assay.Serum Triglycerides Reference Interval Normal <150 mg/dL Borderline high 150 - 199 mg/dL High 200 - 499 mg/dL Very High > or = 500 mg/dL Performed By: #### L 501.4700, L100.0100, L500.4050, L500.4100 ####[facility] [address] [place], [address] Comprehensive Metabolic Prof ilon 11-24-2023 ALB Normal 3.2-5.0 [facility] Comment on above: Result Comment: Canc elled via OM: Order cancelled - Patient discharged Performed By: #### L 500.4050 ####[facility] [address] [place], [address] ALK P Normal 45-117 [facility] Comment on above: Result Comment: Canc elled via OM: Order cancelled - Patient discharged Performed By: #### L 500.4050 ####[facility] [address] [place], [address] ALT Normal 13-56 [facility] Comment on above: Result Comment: Canc elled via OM: Order cancelled - Patient discharged Performed By: #### L 500.4050 ####[facility] [address] [place], [address] AST Normal 15-37 [facility] Comment on above: Result Comment: Canc elled via OM: Order cancelled - Patient discharged Performed By: #### L 500.4050 ####[facility] [address] [place], [address] BUN Normal 7-18 [facility] Comment on above: Result Comment: Canc elled via OM: Order cancelled - Patient discharged Performed By: #### L 500.4050 ####[facility] [address] [place], [address] BUN/CRE Normal 10-20 [facility] Comment on above: Result Comment: Canc elled via OM: Order cancelled - Patient discharged Performed By: #### L 500.4050 ####[facility] [address] [place], [address] CA,Total Normal 8.5-10.1 [facility] Comment on above: Result Comment: Canc elled via OM: Order cancelled - Patient discharged Performed By: #### L 500.4050 ####[facility] [address] [place], [address] CL Normal 98-107 [facility] Comment on above: Result Comment: Canc elled via OM: Order cancelled - Patient discharged Performed By: #### L 500.4050 ####[facility] [address] [place], [address] CO2 Normal 21.0-32.0 [facility] Comment on above: Result Comment: Canc elled via OM: Order cancelled - Patient discharged Performed By: #### L 500.4050 ####[facility] [address] [place], [address] CREAT,SERUM Normal 0.55-1.02 [facility] Comment on above: Result Comment: Canc elled via OM: Order cancelled - Patient discharged Performed By: #### L 500.4050 ####[facility] [address] [place], [address] EST GFR Normal >60 [facility] Comment on above: Result Comment: Canc elled via OM: Order cancelled - Patient discharged Performed By: #### L 500.4050 ####[facility] [address] [place], [address] EST GFR - AA Normal >60 [facility] Comment on above: Result Comment: Canc elled via OM: Order cancelled - Patient discharged Performed By: #### L 500.4050 ####[facility] [address] [place], [address] GAP Normal 5-15 [facility] Comment on above: Result Comment: Canc elled via OM: Order cancelled - Patient discharged Performed By: #### L 500.4050 ####[facility] [address] [place], [address] GLU Normal 74-106 [facility] Comment on above: Result Comment: Canc elled via OM: Order cancelled - Patient discharged Performed By: #### L 500.4050 ####[facility] [address] [place], [address] Potassium Normal 3.5-5.1 [facility] Comment on above: Result Comment: Canc elled via OM: Order cancelled - Patient discharged Performed By: #### L 500.4050 ####[facility] [address] [place], [address] T BILI Normal 0.20-1.00 [facility] Comment on above: Result Comment: Canc elled via OM: Order cancelled - Patient discharged Performed By: #### L 500.4050 ####[facility] [address] [place], [address] T PROT Normal 6.4-8.2 [facility] Comment on above: Result Comment: Canc elled via OM: Order cancelled - Patient discharged Performed By: #### L 500.4050 ####[facility] [address] [place], [address] Comprehensive Metabolic Profil Normal 136-145 [facility] Comment on above: Result Comment: Canc elled via OM: Order cancelled - Patient discharged Performed By: #### L 500.4050 ####[facility] [address] [place], [address] Culture, Blood (WB)on 2023 CUB No growth in [address] [facility] Comment on above: Performed By: #### M 200.1000 ####[facility] [address] [place], [address] CBC W/Diff, Automatedon - Absolute Neut Normal 2.0-7.7 [facility] Comment on above: Result Comment: Canc elled via OM: Order cancelled - Patient discharged Performed By: #### L 100.0100, L500.2500 ####[facility] [address] [place], [address] HCT Normal 37-47 [facility] Comment on above: Result Comment: Canc elled via OM: Order cancelled - Patient discharged Performed By: #### L 100.0100, L500.2500 ####[facility] [address] [place], [address] HGB Normal 12.0-15.0 [facility] Comment on above: Result Comment: Canc elled via OM: Order cancelled - Patient discharged Performed By: #### L 100.0100, L500.2500 ####[facility] [address] [place], [address] MCH Normal 27.0-32.0 [facility] Comment on above: Result Comment: Canc elled via OM: Order cancelled - Patient discharged Performed By: #### L 100.0100, L500.2500 ####[facility] [address] [place], [address] MCHC Normal 32-36 [facility] Comment on above: Result Comment: Canc elled via OM: Order cancelled - Patient discharged Performed By: #### L 100.0100, L500.2500 ####[facility] [address] [place], [address] MCV Normal 81-99 [facility] Comment on above: Result Comment: Canc elled via OM: Order cancelled - Patient discharged Performed By: #### L 100.0100, L500.2500 ####[facility] [address] [place], [address] NEUT% Normal 47-70 [facility] Comment on above: Result Comment: Canc elled via OM: Order cancelled - Patient discharged Performed By: #### L 100.0100, L500.2500 ####[facility] [address] [place], [address] PLT Normal 150-450 [facility] Comment on above: Result Comment: Canc elled via OM: Order cancelled - Patient discharged Performed By: #### L 100.0100, L500.2500 ####[facility] [address] [place], [address] RBC Normal 4.2-5.4 [facility] Comment on above: Result Comment: Canc elled via OM: Order cancelled - Patient discharged Performed By: #### L 100.0100, L500.2500 ####[facility] [address] [place], [address] RDW CV Normal 11.6-14.6 [facility] Comment on above: Result Comment: Canc elled via OM: Order cancelled - Patient discharged Performed By: #### L 100.0100, L500.2500 ####[facility] [address] [place], [address] RDW SD Normal 35.1-43.9 [facility] Comment on above: Result Comment: Canc elled via OM: Order cancelled - Patient discharged Performed By: #### L 100.0100, L500.2500 ####[facility] [address] [place], [address] WBC Normal 4.4-11.0 [facility] Comment on above: Result Comment: Canc elled via OM: Order cancelled - Patient discharged Performed By: #### L 100.0100, L500.2500 ####[facility] [address] [place], [address] Comprehensive Metabolic Prof ilon 11-23-2023 ALB Normal 3.2-5.0 [facility] Comment on above: Result Comment: Canc elled via OM: Order cancelled - Patient discharged Performed By: #### L 500.4050 ####[facility] [address] [place], [address] ALK P Normal 45-117 [facility] Comment on above: Result Comment: Canc elled via OM: Order cancelled - Patient discharged Performed By: #### L 500.4050 ####[facility] [address] [place], [address] ALT Normal 13-56 [facility] Comment on above: Result Comment: Canc elled via OM: Order cancelled - Patient discharged Performed By: #### L 500.4050 ####[facility] [address] [place], [address] AST Normal 15-37 [facility] Comment on above: Result Comment: Canc elled via OM: Order cancelled - Patient discharged Performed By: #### L 500.4050 ####[facility] [address] [place], [address] BUN Normal 7-18 [facility] Comment on above: Result Comment: Canc elled via OM: Order cancelled - Patient discharged Performed By: #### L 500.4050 ####[facility] [address] [place], [address] Result Comment: Canc elled via OM: MD Ordered Performed By: #### L 100.0100, L500.2500 ####[facility] [address] [place], [address] BUN/CRE Normal 10-20 [facility] Comment on above: Result Comment: Canc elled via OM: Order cancelled - Patient discharged Performed By: #### L 500.4050 ####[facility] [address] [place], [address] Result Comment: Canc elled via OM: MD Ordered Performed By: #### L 100.0100, L500.2500 ####[facility] [address] [place], [address] CA,Total Normal 8.5-10.1 [facility] Comment on above: Result Comment: Canc elled via OM: Order cancelled - Patient discharged Performed By: #### L 500.4050 ####[facility] [address] [place], [address] Result Comment: Canc elled via OM: MD Ordered Performed By: #### L 100.0100, L500.2500 ####[facility] [address] [place], [address] CL Normal 98-107 [facility] Comment on above: Result Comment: Canc elled via OM: Order cancelled - Patient discharged Performed By: #### L 500.4050 ####[facility] [address] [place], [address] Result Comment: Canc elled via OM: MD Ordered Performed By: #### L 100.0100, L500.2500 ####[facility] [address] [place], [address] CO2 Normal 21.0-32.0 [facility] Comment on above: Result Comment: Canc elled via OM: Order cancelled - Patient discharged Performed By: #### L 500.4050 ####[facility] [address] [place], [address] Result Comment: Canc elled via OM: MD Ordered Performed By: #### L 100.0100, L500.2500 ####[facility] [address] [place], [address] CREAT,SERUM Normal 0.55-1.02 [facility] Comment on above: Result Comment: Canc elled via OM: Order cancelled - Patient discharged Performed By: #### L 500.4050 ####[facility] [address] [place], [address] Result Comment: Canc elled via OM: MD Ordered Performed By: #### L 100.0100, L500.2500 ####[facility] [address] [place], [address] EST GFR Normal >60 [facility] Comment on above: Result Comment: Canc elled via OM: Order cancelled - Patient discharged Performed By: #### L 500.4050 ####[facility] [address] [place], [address] Result Comment: Canc elled via OM: MD Ordered Performed By: #### L 100.0100, L500.2500 ####[facility] [address] [place], [address] EST GFR - AA Normal >60 [facility] Comment on above: Result Comment: Canc elled via OM: Order cancelled - Patient discharged Performed By: #### L 500.4050 ####[facility] [address] [place], [address] Result Comment: Canc elled via OM: MD Ordered Performed By: #### L 100.0100, L500.2500 ####[facility] [address] [place], [address] GAP Normal 5-15 [facility] Comment on above: Result Comment: Canc elled via OM: Order cancelled - Patient discharged Performed By: #### L 500.4050 ####[facility] [address] [place], [address] Result Comment: Canc elled via OM: MD Ordered Performed By: #### L 100.0100, L500.2500 ####[facility] [address] [place], [address] GLU Normal 74-106 [facility] Comment on above: Result Comment: Canc elled via OM: Order cancelled - Patient discharged Performed By: #### L 500.4050 ####[facility] [address] [place], [address] Result Comment: Canc elled via OM: MD Ordered Performed By: #### L 100.0100, L500.2500 ####[facility] [address] [place], [address] Potassium Normal 3.5-5.1 [facility] Comment on above: Result Comment: Canc elled via OM: Order cancelled - Patient discharged Performed By: #### L 500.4050 ####[facility] [address] [place], [address] Result Comment: Canc elled via OM: MD Ordered Performed By: #### L 100.0100, L500.2500 ####[facility] [address] [place], [address] T BILI Normal 0.20-1.00 [facility] Comment on above: Result Comment: Canc elled via OM: Order cancelled - Patient discharged Performed By: #### L 500.4050 ####[facility] [address] [place], [address] T PROT Normal 6.4-8.2 [facility] Comment on above: Result Comment: Canc elled via OM: Order cancelled - Patient discharged Performed By: #### L 500.4050 ####[facility] [address] [place], [address] Comprehensive Metabolic Profil Normal 136-145 [facility] Comment on above: Result Comment: Canc elled via OM: Order cancelled - Patient discharged Performed By: #### L 500.4050 ####[facility] [address] [place], [address] Result Comment: Canc elled via OM: MD Ordered Performed By: #### L 100.0100, L500.2500 ####[facility] [address] [place], [address] CBC W/Diff, Automatedon 07-2 Absolute Neut Normal 2.0-7.7 [facility] Comment on above: Result Comment: Canc elled via OM: Order cancelled - Patient discharged Performed By: #### L 100.0100, L500.2500 ####[facility] [address] [place], [address] HCT Normal 37-47 [facility] Comment on above: Result Comment: Canc elled via OM: Order cancelled - Patient discharged Performed By: #### L 100.0100, L500.2500 ####[facility] [address] [place], [address] HGB Normal 12.0-15.0 [facility] Comment on above: Result Comment: Canc elled via OM: Order cancelled - Patient discharged Performed By: #### L 100.0100, L500.2500 ####[facility] [address] [place], [address] MCH Normal 27.0-32.0 [facility] Comment on above: Result Comment: Canc elled via OM: Order cancelled - Patient discharged Performed By: #### L 100.0100, L500.2500 ####[facility] [address] [place], [address] MCHC Normal 32-36 [facility] Comment on above: Result Comment: Canc elled via OM: Order cancelled - Patient discharged Performed By: #### L 100.0100, L500.2500 ####[facility] [address] [place], [address] MCV Normal 81-99 [facility] Comment on above: Result Comment: Canc elled via OM: Order cancelled - Patient discharged Performed By: #### L 100.0100, L500.2500 ####[facility] [address] [place], [address] NEUT% Normal 47-70 [facility] Comment on above: Result Comment: Canc elled via OM: Order cancelled - Patient discharged Performed By: #### L 100.0100, L500.2500 ####[facility] [address] [place], [address] PLT Normal 150-450 [facility] Comment on above: Result Comment: Canc elled via OM: Order cancelled - Patient discharged Performed By: #### L 100.0100, L500.2500 ####[facility] [address] [place], [address] RBC Normal 4.2-5.4 [facility] Comment on above: Result Comment: Canc elled via OM: Order cancelled - Patient discharged Performed By: #### L 100.0100, L500.2500 ####[facility] [address] [place], [address] RDW CV Normal 11.6-14.6 [facility] Comment on above: Result Comment: Canc elled via OM: Order cancelled - Patient discharged Performed By: #### L 100.0100, L500.2500 ####[facility] [address] [place], [address] RDW SD Normal 35.1-43.9 [facility] Comment on above: Result Comment: Canc elled via OM: Order cancelled - Patient discharged Performed By: #### L 100.0100, L500.2500 ####[facility] [address] [place], [address] WBC Normal 4.4-11.0 [facility] Comment on above: Result Comment: Canc elled via OM: Order cancelled - Patient discharged Performed By: #### L 100.0100, L500.2500 ####[facility] [address] [place], [address] Comprehensive Metabolic Prof ilon 11-22-2023 ALB Normal 3.2-5.0 [facility] Comment on above: Result Comment: Canc elled via OM: Order cancelled - Patient discharged Performed By: #### L 500.4050 ####[facility] [address] [place], [address] ALK P Normal 45-117 [facility] Comment on above: Result Comment: Canc elled via OM: Order cancelled - Patient discharged Performed By: #### L 500.4050 ####[facility] [address] [place], [address] ALT Normal 13-56 [facility] Comment on above: Result Comment: Canc elled via OM: Order cancelled - Patient discharged Performed By: #### L 500.4050 ####[facility] [address] [place], [address] AST Normal 15-37 [facility] Comment on above: Result Comment: Canc elled via OM: Order cancelled - Patient discharged Performed By: #### L 500.4050 ####[facility] [address] [place], [address] BUN Normal 7-18 [facility] Comment on above: Result Comment: Canc elled via OM: Order cancelled - Patient discharged Performed By: #### L 500.4050 ####[facility] [address] [place], [address] Result Comment: Canc elled via OM: MD Ordered Performed By: #### L 100.0100, L500.2500 ####[facility] [address] [place], [address] BUN/CRE Normal 10-20 [facility] Comment on above: Result Comment: Canc elled via OM: Order cancelled - Patient discharged Performed By: #### L 500.4050 ####[facility] [address] [place], [address] Result Comment: Canc elled via OM: MD Ordered Performed By: #### L 100.0100, L500.2500 ####[facility] [address] [place], [address] CA,Total Normal 8.5-10.1 [facility] Comment on above: Result Comment: Canc elled via OM: Order cancelled - Patient discharged Performed By: #### L 500.4050 ####[facility] [address] [place], [address] Result Comment: Canc elled via OM: MD Ordered Performed By: #### L 100.0100, L500.2500 ####[facility] [address] [place], [address] CL Normal 98-107 [facility] Comment on above: Result Comment: Canc elled via OM: Order cancelled - Patient discharged Performed By: #### L 500.4050 ####[facility] [address] [place], [address] Result Comment: Canc elled via OM: MD Ordered Performed By: #### L 100.0100, L500.2500 ####[facility] [address] [place], [address] CO2 Normal 21.0-32.0 [facility] Comment on above: Result Comment: Canc elled via OM: Order cancelled - Patient discharged Performed By: #### L 500.4050 ####[facility] [address] [place], [address] Result Comment: Canc elled via OM: MD Ordered Performed By: #### L 100.0100, L500.2500 ####[facility] [address] [place], [address] CREAT,SERUM Normal 0.55-1.02 [facility] Comment on above: Result Comment: Canc elled via OM: Order cancelled - Patient discharged Performed By: #### L 500.4050 ####[facility] [address] [place], [address] Result Comment: Canc elled via OM: MD Ordered Performed By: #### L 100.0100, L500.2500 ####[facility] [address] [place], [address] EST GFR Normal >60 [facility] Comment on above: Result Comment: Canc elled via OM: Order cancelled - Patient discharged Performed By: #### L 500.4050 ####[facility] [address] [place], [address] Result Comment: Canc elled via OM: MD Ordered Performed By: #### L 100.0100, L500.2500 ####[facility] [address] [place], [address] EST GFR - AA Normal >60 [facility] Comment on above: Result Comment: Canc elled via OM: Order cancelled - Patient discharged Performed By: #### L 500.4050 ####[facility] [address] [place], [address] Result Comment: Canc elled via OM: MD Ordered Performed By: #### L 100.0100, L500.2500 ####[facility] [address] [place], [address] GAP Normal 5-15 [facility] Comment on above: Result Comment: Canc elled via OM: Order cancelled - Patient discharged Performed By: #### L 500.4050 ####[facility] [address] [place], [address] Result Comment: Canc elled via OM: MD Ordered Performed By: #### L 100.0100, L500.2500 ####[facility] [address] [place], [address] GLU Normal 74-106 [facility] Comment on above: Result Comment: Canc elled via OM: Order cancelled - Patient discharged Performed By: #### L 500.4050 ####[facility] [address] [place], [address] Result Comment: Canc elled via OM: MD Ordered Performed By: #### L 100.0100, L500.2500 ####[facility] [address] [place], [address] Potassium Normal 3.5-5.1 [facility] Comment on above: Result Comment: Canc elled via OM: Order cancelled - Patient discharged Performed By: #### L 500.4050 ####[facility] [address] [place], [address] Result Comment: Canc elled via OM: MD Ordered Performed By: #### L 100.0100, L500.2500 ####[facility] [address] [place], [address] T BILI Normal 0.20-1.00 [facility] Comment on above: Result Comment: Canc elled via OM: Order cancelled - Patient discharged Performed By: #### L 500.4050 ####[facility] [address] [place], [address] T PROT Normal 6.4-8.2 [facility] Comment on above: Result Comment: Canc elled via OM: Order cancelled - Patient discharged Performed By: #### L 500.4050 ####[facility] [address] [place], [address] Comprehensive Metabolic Profil Normal 136-145 [facility] Comment on above: Result Comment: Canc elled via OM: Order cancelled - Patient discharged Performed By: #### L 500.4050 ####[facility] [address] [place], [address] Result Comment: Canc elled via OM: MD Ordered Performed By: #### L 100.0100, L500.2500 ####[facility] [address] [place], [address] CBC W/Diff, Automatedon 07-2 0-2023 Absolute Neut Normal 2.0-7.7 [facility] Comment on above: Result Comment: Canc elled via OM: Order cancelled - Patient discharged Performed By: #### L 100.0100, L500.2500 ####[facility] [address] [place], [address] HCT Normal 37-47 [facility] Comment on above: Result Comment: Canc elled via OM: Order cancelled - Patient discharged Performed By: #### L 100.0100, L500.2500 ####[facility] [address] [place], [address] HGB Normal 12.0-15.0 [facility] Comment on above: Result Comment: Canc elled via OM: Order cancelled - Patient discharged Performed By: #### L 100.0100, L500.2500 ####[facility] [address] [place], [address] MCH Normal 27.0-32.0 [facility] Comment on above: Result Comment: Canc elled via OM: Order cancelled - Patient discharged Performed By: #### L 100.0100, L500.2500 ####[facility] [address] [place], [address] MCHC Normal 32-36 [facility] Comment on above: Result Comment: Canc elled via OM: Order cancelled - Patient discharged Performed By: #### L 100.0100, L500.2500 ####[facility] [address] [place], [address] MCV Normal 81-99 [facility] Comment on above: Result Comment: Canc elled via OM: Order cancelled - Patient discharged Performed By: #### L 100.0100, L500.2500 ####[facility] [address] [place], [address] NEUT% Normal 47-70 [facility] Comment on above: Result Comment: Canc elled via OM: Order cancelled - Patient discharged Performed By: #### L 100.0100, L500.2500 ####[facility] [address] [place], [address] PLT Normal 150-450 [facility] Comment on above: Result Comment: Canc elled via OM: Order cancelled - Patient discharged Performed By: #### L 100.0100, L500.2500 ####[facility] [address] [place], [address] RBC Normal 4.2-5.4 [facility] Comment on above: Result Comment: Canc elled via OM: Order cancelled - Patient discharged Performed By: #### L 100.0100, L500.2500 ####[facility] [address] [place], [address] RDW CV Normal 11.6-14.6 [facility] Comment on above: Result Comment: Canc elled via OM: Order cancelled - Patient discharged Performed By: #### L 100.0100, L500.2500 ####[facility] [address] [place], [address] RDW SD Normal 35.1-43.9 [facility] Comment on above: Result Comment: Canc elled via OM: Order cancelled - Patient discharged Performed By: #### L 100.0100, L500.2500 ####[facility] [address] [place], [address] WBC Normal 4.4-11.0 [facility] Comment on above: Result Comment: Canc elled via OM: Order cancelled - Patient discharged Performed By: #### L 100.0100, L500.2500 ####[facility] [address] [place], [address] Comprehensive Metabolic Prof ilon 11-21-2023 ALB Normal 3.2-5.0 [facility] Comment on above: Result Comment: Canc elled via OM: Order cancelled - Patient discharged Performed By: #### L 500.4050 ####[facility] [address] [place], [address] ALK P Normal 45-117 [facility] Comment on above: Result Comment: Canc elled via OM: Order cancelled - Patient discharged Performed By: #### L 500.4050 ####[facility] [address] [place], [address] ALT Normal 13-56 [facility] Comment on above: Result Comment: Canc elled via OM: Order cancelled - Patient discharged Performed By: #### L 500.4050 ####[facility] [address] [place], [address] AST Normal 15-37 [facility] Comment on above: Result Comment: Canc elled via OM: Order cancelled - Patient discharged Performed By: #### L 500.4050 ####[facility] [address] [place], [address] BUN Normal 7-18 [facility] Comment on above: Result Comment: Canc elled via OM: Order cancelled - Patient discharged Performed By: #### L 500.4050 ####[facility] [address] [place], [address] Result Comment: Canc elled via OM: MD Ordered Performed By: #### L 100.0100, L500.2500 ####[facility] [address] [place], [address] BUN/CRE Normal 10-20 [facility] Comment on above: Result Comment: Canc elled via OM: Order cancelled - Patient discharged Performed By: #### L 500.4050 ####[facility] [address] [place], [address] Result Comment: Canc elled via OM: MD Ordered Performed By: #### L 100.0100, L500.2500 ####[facility] [address] [place], [address] CA,Total Normal 8.5-10.1 [facility] Comment on above: Result Comment: Canc elled via OM: Order cancelled - Patient discharged Performed By: #### L 500.4050 ####[facility] [address] [place], [address] Result Comment: Canc elled via OM: MD Ordered Performed By: #### L 100.0100, L500.2500 ####[facility] [address] [place], [address] CL Normal 98-107 [facility] Comment on above: Result Comment: Canc elled via OM: Order cancelled - Patient discharged Performed By: #### L 500.4050 ####[facility] [address] [place], [address] Result Comment: Canc elled via OM: MD Ordered Performed By: #### L 100.0100, L500.2500 ####[facility] [address] [place], [address] CO2 Normal 21.0-32.0 [facility] Comment on above: Result Comment: Canc elled via OM: Order cancelled - Patient discharged Performed By: #### L 500.4050 ####[facility] [address] [place], [address] Result Comment: Canc elled via OM: MD Ordered Performed By: #### L 100.0100, L500.2500 ####[facility] [address] [place], [address] CREAT,SERUM Normal 0.55-1.02 [facility] Comment on above: Result Comment: Canc elled via OM: Order cancelled - Patient discharged Performed By: #### L 500.4050 ####[facility] [address] [place], [address] Result Comment: Canc elled via OM: MD Ordered Performed By: #### L 100.0100, L500.2500 ####[facility] [address] [place], [address] EST GFR Normal >60 [facility] Comment on above: Result Comment: Canc elled via OM: Order cancelled - Patient discharged Performed By: #### L 500.4050 ####[facility] [address] [place], [address] Result Comment: Canc elled via OM: MD Ordered Performed By: #### L 100.0100, L500.2500 ####[facility] [address] [place], [address] EST GFR - AA Normal >60 [facility] Comment on above: Result Comment: Canc elled via OM: Order cancelled - Patient discharged Performed By: #### L 500.4050 ####[facility] [address] [place], [address] Result Comment: Canc elled via OM: MD Ordered Performed By: #### L 100.0100, L500.2500 ####[facility] [address] [place], [address] GAP Normal 5-15 [facility] Comment on above: Result Comment: Canc elled via OM: Order cancelled - Patient discharged Performed By: #### L 500.4050 ####[facility] [address] [place], [address] Result Comment: Canc elled via OM: MD Ordered Performed By: #### L 100.0100, L500.2500 ####[facility] [address] [place], [address] GLU Normal 74-106 [facility] Comment on above: Result Comment: Canc elled via OM: Order cancelled - Patient discharged Performed By: #### L 500.4050 ####[facility] [address] [place], [address] Result Comment: Canc elled via OM: MD Ordered Performed By: #### L 100.0100, L500.2500 ####[facility] [address] [place], [address] Potassium Normal 3.5-5.1 [facility] Comment on above: Result Comment: Canc elled via OM: Order cancelled - Patient discharged Performed By: #### L 500.4050 ####[facility] [address] [place], [address] Result Comment: Canc elled via OM: MD Ordered Performed By: #### L 100.0100, L500.2500 ####[facility] [address] [place], [address] T BILI Normal 0.20-1.00 [facility] Comment on above: Result Comment: Canc elled via OM: Order cancelled - Patient discharged Performed By: #### L 500.4050 ####[facility] [address] [place], [address] T PROT Normal 6.4-8.2 [facility] Comment on above: Result Comment: Canc elled via OM: Order cancelled - Patient discharged Performed By: #### L 500.4050 ####[facility] [address] [place], [address] Comprehensive Metabolic Profil Normal 136-145 [facility] Comment on above: Result Comment: Canc elled via OM: Order cancelled - Patient discharged Performed By: #### L 500.4050 ####[facility] [address] [place], [address] Result Comment: Canc elled via OM: MD Ordered Performed By: #### L 100.0100, L500.2500 ####[facility] [address] [place], [address] Basic Metabolic Profile (BMP )on 11-20-2023 BUN Normal 7-18 [facility] Comment on above: Result Comment: Canc elled via OM: MD Ordered Performed By: #### L 500.2500, L100.0100 ####[facility] [address] [place], [address] Result Comment: Canc elled via OM: Order cancelled - Patient discharged Performed By: #### L 500.4050 ####[facility] [address] [place], [address] BUN/CRE Normal 10-20 [facility] Comment on above: Result Comment: Canc elled via OM: MD Ordered Performed By: #### L 500.2500, L100.0100 ####[facility] [address] [place], [address] Result Comment: Canc elled via OM: Order cancelled - Patient discharged Performed By: #### L 500.4050 ####[facility] [address] [place], [address] CA,Total Normal 8.5-10.1 [facility] Comment on above: Result Comment: Canc elled via OM: MD Ordered Performed By: #### L 500.2500, L100.0100 ####[facility] [address] [place], [address] Result Comment: Canc elled via OM: Order cancelled - Patient discharged Performed By: #### L 500.4050 ####[facility] [address] [place], [address] CL Normal 98-107 [facility] Comment on above: Result Comment: Canc elled via OM: MD Ordered Performed By: #### L 500.2500, L100.0100 ####[facility] [address] [place], [address] Result Comment: Canc elled via OM: Order cancelled - Patient discharged Performed By: #### L 500.4050 ####[facility] [address] [place], [address] CO2 Normal 21.0-32.0 [facility] Comment on above: Result Comment: Canc elled via OM: MD Ordered Performed By: #### L 500.2500, L100.0100 ####[facility] [address] [place], [address] Result Comment: Canc elled via OM: Order cancelled - Patient discharged Performed By: #### L 500.4050 ####[facility] [address] [place], [address] CREAT,SERUM Normal 0.55-1.02 [facility] Comment on above: Result Comment: Canc elled via OM: MD Ordered Performed By: #### L 500.2500, L100.0100 ####[facility] [address] [place], [address] Result Comment: Canc elled via OM: Order cancelled - Patient discharged Performed By: #### L 500.4050 ####[facility] [address] [place], [address] EST GFR Normal >60 [facility] Comment on above: Result Comment: Canc elled via OM: MD Ordered Performed By: #### L 500.2500, L100.0100 ####[facility] [address] [place], [address] Result Comment: Canc elled via OM: Order cancelled - Patient discharged Performed By: #### L 500.4050 ####[facility] [address] [place], [address] EST GFR - AA Normal >60 [facility] Comment on above: Result Comment: Canc elled via OM: MD Ordered Performed By: #### L 500.2500, L100.0100 ####[facility] [address] [place], [address] Result Comment: Canc elled via OM: Order cancelled - Patient discharged Performed By: #### L 500.4050 ####[facility] [address] [place], [address] GAP Normal 5-15 [facility] Comment on above: Result Comment: Canc elled via OM: MD Ordered Performed By: #### L 500.2500, L100.0100 ####[facility] [address] [place], [address] Result Comment: Canc elled via OM: Order cancelled - Patient discharged Performed By: #### L 500.4050 ####[facility] [address] [place], [address] GLU Normal 74-106 [facility] Comment on above: Result Comment: Canc elled via OM: MD Ordered Performed By: #### L 500.2500, L100.0100 ####[facility] [address] [place], [address] Result Comment: Canc elled via OM: Order cancelled - Patient discharged Performed By: #### L 500.4050 ####[facility] [address] [place], [address] Potassium Normal 3.5-5.1 [facility] Comment on above: Result Comment: Canc elled via OM: MD Ordered Performed By: #### L 500.2500, L100.0100 ####[facility] [address] [place], [address] Result Comment: Canc elled via OM: Order cancelled - Patient discharged Performed By: #### L 500.4050 ####[facility] [address] [place], [address] Basic Metabolic Profile (BMP) Normal 136-145 [facility] Comment on above: Result Comment: Canc elled via OM: MD Ordered Performed By: #### L 500.2500, L100.0100 ####[facility] [address] [place], [address] Result Comment: Canc elled via OM: Order cancelled - Patient discharged Performed By: #### L 500.4050 ####[facility] [address] [place], [address] CBC W/Diff, Automatedon 07-1 9-2024 Absolute Neut Normal 2.0-7.7 [facility] Comment on above: Result Comment: Canc elled via OM: Order cancelled - Patient discharged Performed By: #### L 500.2500, L100.0100 ####[facility] [address] [place], [address] HCT Normal 37-47 [facility] Comment on above: Result Comment: Canc elled via OM: Order cancelled - Patient discharged Performed By: #### L 500.2500, L100.0100 ####[facility] [address] [place], [address] HGB Normal 12.0-15.0 [facility] Comment on above: Result Comment: Canc elled via OM: Order cancelled - Patient discharged Performed By: #### L 500.2500, L100.0100 ####[facility] [address] [place], [address] MCH Normal 27.0-32.0 [facility] Comment on above: Result Comment: Canc elled via OM: Order cancelled - Patient discharged Performed By: #### L 500.2500, L100.0100 ####[facility] [address] [place], [address] MCHC Normal 32-36 [facility] Comment on above: Result Comment: Canc elled via OM: Order cancelled - Patient discharged Performed By: #### L 500.2500, L100.0100 ####[facility] [address] [place], [address] MCV Normal 81-99 [facility] Comment on above: Result Comment: Canc elled via OM: Order cancelled - Patient discharged Performed By: #### L 500.2500, L100.0100 ####[facility] [address] [place], [address] NEUT% Normal 47-70 [facility] Comment on above: Result Comment: Canc elled via OM: Order cancelled - Patient discharged Performed By: #### L 500.2500, L100.0100 ####[facility] [address] [place], [address] PLT Normal 150-450 [facility] Comment on above: Result Comment: Canc elled via OM: Order cancelled - Patient discharged Performed By: #### L 500.2500, L100.0100 ####[facility] [address] [place], [address] RBC Normal 4.2-5.4 [facility] Comment on above: Result Comment: Canc elled via OM: Order cancelled - Patient discharged Performed By: #### L 500.2500, L100.0100 ####[facility] [address] [place], [address] RDW CV Normal 11.6-14.6 [facility] Comment on above: Result Comment: Canc elled via OM: Order cancelled - Patient discharged Performed By: #### L 500.2500, L100.0100 ####[facility] [address] [place], [address] RDW SD Normal 35.1-43.9 [facility] Comment on above: Result Comment: Canc elled via OM: Order cancelled - Patient discharged Performed By: #### L 500.2500, L100.0100 ####[facility] [address] [place], [address] WBC Normal 4.4-11.0 [facility] Comment on above: Result Comment: Canc elled via OM: Order cancelled - Patient discharged Performed By: #### L 500.2500, L100.0100 ####[facility] [address] [place], [address] Comprehensive Metabolic Prof ilon 11-20-2023 ALB Normal 3.2-5.0 [facility] Comment on above: Result Comment: Canc elled via OM: Order cancelled - Patient discharged Performed By: #### L 500.4050 ####[facility] [address] [place], [address] ALK P Normal 45-117 [facility] Comment on above: Result Comment: Canc elled via OM: Order cancelled - Patient discharged Performed By: #### L 500.4050 ####[facility] [address] [place], [address] ALT Normal 13-56 [facility] Comment on above: Result Comment: Canc elled via OM: Order cancelled - Patient discharged Performed By: #### L 500.4050 ####[facility] [address] [place], [address] AST Normal 15-37 [facility] Comment on above: Result Comment: Canc elled via OM: Order cancelled - Patient discharged Performed By: #### L 500.4050 ####[facility] [address] [place], [address] T BILI Normal 0.20-1.00 [facility] Comment on above: Result Comment: Canc elled via OM: Order cancelled - Patient discharged Performed By: #### L 500.4050 ####[facility] [address] [place], [address] T PROT Normal 6.4-8.2 [facility] Comment on above: Result Comment: Canc elled via OM: Order cancelled - Patient discharged Performed By: #### L 500.4050 ####[facility] [address] [place], [address] CBC W/Diff, Automatedon 07- Absolute Neut Normal 2.0-7.7 [facility] Comment on above: Result Comment: Canc elled via OM: Order cancelled - Patient discharged Performed By: #### L 100.0100, L500.2500 ####[facility] [address] [place], [address] HCT Normal 37-47 [facility] Comment on above: Result Comment: Canc elled via OM: Order cancelled - Patient discharged Performed By: #### L 100.0100, L500.2500 ####[facility] [address] [place], [address] HGB Normal 12.0-15.0 [facility] Comment on above: Result Comment: Canc elled via OM: Order cancelled - Patient discharged Performed By: #### L 100.0100, L500.2500 ####[facility] [address] [place], [address] MCH Normal 27.0-32.0 [facility] Comment on above: Result Comment: Canc elled via OM: Order cancelled - Patient discharged Performed By: #### L 100.0100, L500.2500 ####[facility] [address] [place], [address] MCHC Normal 32-36 [facility] Comment on above: Result Comment: Canc elled via OM: Order cancelled - Patient discharged Performed By: #### L 100.0100, L500.2500 ####[facility] [address] [place], [address] MCV Normal 81-99 [facility] Comment on above: Result Comment: Canc elled via OM: Order cancelled - Patient discharged Performed By: #### L 100.0100, L500.2500 ####[facility] [address] [place], [address] NEUT% Normal 47-70 [facility] Comment on above: Result Comment: Canc elled via OM: Order cancelled - Patient discharged Performed By: #### L 100.0100, L500.2500 ####[facility] [address] [place], [address] PLT Normal 150-450 [facility] Comment on above: Result Comment: Canc elled via OM: Order cancelled - Patient discharged Performed By: #### L 100.0100, L500.2500 ####[facility] [address] [place], [address] RBC Normal 4.2-5.4 [facility] Comment on above: Result Comment: Canc elled via OM: Order cancelled - Patient discharged Performed By: #### L 100.0100, L500.2500 ####[facility] [address] [place], [address] RDW CV Normal 11.6-14.6 [facility] Comment on above: Result Comment: Canc elled via OM: Order cancelled - Patient discharged Performed By: #### L 100.0100, L500.2500 ####[facility] [address] [place], [address] RDW SD Normal 35.1-43.9 [facility] Comment on above: Result Comment: Canc elled via OM: Order cancelled - Patient discharged Performed By: #### L 100.0100, L500.2500 ####[facility] [address] [place], [address] WBC Normal 4.4-11.0 [facility] Comment on above: Result Comment: Canc elled via OM: Order cancelled - Patient discharged Performed By: #### L 100.0100, L500.2500 ####[facility] [address] [place], [address] Comprehensive Metabolic Prof ilon 11-19-2023 ALB Normal 3.2-5.0 [facility] Comment on above: Result Comment: Canc elled via OM: Order cancelled - Patient discharged Performed By: #### L 500.4050 ####[facility] [address] [place], [address] ALK P Normal 45-117 [facility] Comment on above: Result Comment: Canc elled via OM: Order cancelled - Patient discharged Performed By: #### L 500.4050 ####[facility] [address] [place], [address] ALT Normal 13-56 [facility] Comment on above: Result Comment: Canc elled via OM: Order cancelled - Patient discharged Performed By: #### L 500.4050 ####[facility] [address] [place], [address] AST Normal 15-37 [facility] Comment on above: Result Comment: Canc elled via OM: Order cancelled - Patient discharged Performed By: #### L 500.4050 ####[facility] [address] [place], [address] BUN Normal 7-18 [facility] Comment on above: Result Comment: Canc elled via OM: Order cancelled - Patient discharged Performed By: #### L 500.4050 ####[facility] [address] [place], [address] Result Comment: Canc elled via OM: MD Ordered Performed By: #### L 100.0100, L500.2500 ####[facility] [address] [place], [address] BUN/CRE Normal 10-20 [facility] Comment on above: Result Comment: Canc elled via OM: Order cancelled - Patient discharged Performed By: #### L 500.4050 ####[facility] [address] [place], [address] Result Comment: Canc elled via OM: MD Ordered Performed By: #### L 100.0100, L500.2500 ####[facility] [address] [place], [address] CA,Total Normal 8.5-10.1 [facility] Comment on above: Result Comment: Canc elled via OM: Order cancelled - Patient discharged Performed By: #### L 500.4050 ####[facility] [address] [place], [address] Result Comment: Canc elled via OM: MD Ordered Performed By: #### L 100.0100, L500.2500 ####[facility] [address] [place], [address] CL Normal 98-107 [facility] Comment on above: Result Comment: Canc elled via OM: Order cancelled - Patient discharged Performed By: #### L 500.4050 ####[facility] [address] [place], [address] Result Comment: Canc elled via OM: MD Ordered Performed By: #### L 100.0100, L500.2500 ####[facility] [address] [place], [address] CO2 Normal 21.0-32.0 [facility] Comment on above: Result Comment: Canc elled via OM: Order cancelled - Patient discharged Performed By: #### L 500.4050 ####[facility] [address] [place], [address] Result Comment: Canc elled via OM: MD Ordered Performed By: #### L 100.0100, L500.2500 ####[facility] [address] [place], [address] CREAT,SERUM Normal 0.55-1.02 [facility] Comment on above: Result Comment: Canc elled via OM: Order cancelled - Patient discharged Performed By: #### L 500.4050 ####[facility] [address] [place], [address] Result Comment: Canc elled via OM: MD Ordered Performed By: #### L 100.0100, L500.2500 ####[facility] [address] [place], [address] EST GFR Normal >60 [facility] Comment on above: Result Comment: Canc elled via OM: Order cancelled - Patient discharged Performed By: #### L 500.4050 ####[facility] [address] [place], [address] Result Comment: Canc elled via OM: MD Ordered Performed By: #### L 100.0100, L500.2500 ####[facility] [address] [place], [address] EST GFR - AA Normal >60 [facility] Comment on above: Result Comment: Canc elled via OM: Order cancelled - Patient discharged Performed By: #### L 500.4050 ####[facility] [address] [place], [address] Result Comment: Canc elled via OM: MD Ordered Performed By: #### L 100.0100, L500.2500 ####[facility] [address] [place], [address] GAP Normal 5-15 [facility] Comment on above: Result Comment: Canc elled via OM: Order cancelled - Patient discharged Performed By: #### L 500.4050 ####[facility] [address] [place], [address] Result Comment: Canc elled via OM: MD Ordered Performed By: #### L 100.0100, L500.2500 ####[facility] [address] [place], [address] GLU Normal 74-106 [facility] Comment on above: Result Comment: Canc elled via OM: Order cancelled - Patient discharged Performed By: #### L 500.4050 ####[facility] [address] [place], [address] Result Comment: Canc elled via OM: MD Ordered Performed By: #### L 100.0100, L500.2500 ####[facility] [address] [place], [address] Potassium Normal 3.5-5.1 [facility] Comment on above: Result Comment: Canc elled via OM: Order cancelled - Patient discharged Performed By: #### L 500.4050 ####[facility] [address] [place], [address] Result Comment: Canc elled via OM: MD Ordered Performed By: #### L 100.0100, L500.2500 ####[facility] [address] [place], [address] T BILI Normal 0.20-1.00 [facility] Comment on above: Result Comment: Canc elled via OM: Order cancelled - Patient discharged Performed By: #### L 500.4050 ####[facility] [address] [place], [address] T PROT Normal 6.4-8.2 [facility] Comment on above: Result Comment: Canc elled via OM: Order cancelled - Patient discharged Performed By: #### L 500.4050 ####[facility] [address] [place], [address] Comprehensive Metabolic Profil Normal 136-145 [facility] Comment on above: Result Comment: Canc elled via OM: Order cancelled - Patient discharged Performed By: #### L 500.4050 ####[facility] [address] [place], [address] Result Comment: Canc elled via OM: MD Ordered Performed By: #### L 100.0100, L500.2500 ####[facility] [address] [place], [address] Urine Cultureon 11-19-2023 URC Normal [facility] Comment on above: Performed By: #### L 400.0001, M100.2200 ####[facility] [address] [place], [address] Bedside Glucoseon 11-18-2023 FINGERSTICK GLU 109 mg/dL High 74-106 [facility] Comment on above: Result Comment: SONAM GEMENT OF PATIENT CARE PER NURSING PROTOCOL Performed By: #### L 501.080 ####[facility] [address] [place], [address] FINGERSTICK GLU 95 mg/dL Normal 74-106 [facility] Comment on above: Result Comment: SONAM GEMENT OF PATIENT CARE PER NURSING PROTOCOL Performed By: #### L 501.080 ####[facility] [address] [place], [address] CBC W/Diff, Automatedon 11-01 Absolute Lymph 1.27 X10 3/uL Normal 0.83-4.51 [facility] Comment on above: Performed By: #### L 500.4050, L501.6710, L100.0100, L101.9900 ####[facility] [address] [place], [address] Absolute Neut 3.5 X10 3/uL Normal 2.0-7.7 [facility] Comment on above: Performed By: #### L 500.4050, L501.6710, L100.0100, L101.9900 ####[facility] [address] [place], [address] Basophils/100 WBC (Bld) 0.2 % Normal 0-1 [facility] Comment on above: Performed By: #### L 500.4050, L501.6710, L100.0100, L101.9900 ####[facility] [address] [place], [address] Eosinophils/100 WBC (Bld) 1.2 % Normal 0-5 [facility] Comment on above: Performed By: #### L 500.4050, L501.6710, L100.0100, L101.9900 ####[facility] [address] [place], [address] Erythrocyte distribution width (RBC) [Ratio] 12.6 % Normal 11.6-14.6 [facility] Comment on above: Performed By: #### L 500.4050, L501.6710, L100.0100, L101.9900 ####[facility] [address] [place], [address] Hematocrit (Bld) [Volume fraction] 30.0 % Low 37-47 [facility] Comment on above: Performed By: #### L 500.4050, L501.6710, L100.0100, L101.9900 ####[facility] [address] [place], [address] Hemoglobin (Bld) [Mass/Vol] 10.0 g/dL Low 12.0-15.0 [facility] Comment on above: Performed By: #### L 500.4050, L501.6710, L100.0100, L101.9900 ####[facility] [address] [place], [address] IG% 0.600 Normal 0.0-0.9 [facility] Comment on above: Result Comment: IG% - Immature Granulocytes (promyelocytes, myelocytes andmetamyelocytes) > 1% indicates that a LEFT SHIFT is Present. Performed By: #### L 500.4050, L501.6710, L100.0100, L101.9900 ####[facility] [address] [place], [address] Lymphocytes/100 WBC (Bld) 24.9 % Normal 19-41 [facility] Comment on above: Performed By: #### L 500.4050, L501.6710, L100.0100, L101.9900 ####[facility] [address] [place], [address] MCH (RBC) [Entitic mass] 32.3 pg High 27.0-32.0 [facility] Comment on above: Performed By: #### L 500.4050, L501.6710, L100.0100, L101.9900 ####[facility] [address] [place], [address] MCHC (RBC) [Mass/Vol] 33.3 g/dL Normal 32-36 [facility] Comment on above: Performed By: #### L 500.4050, L501.6710, L100.0100, L101.9900 ####[facility] [address] [place], [address] MCV (RBC) [Entitic vol] 96.8 fL Normal 81-99 [facility] Comment on above: Performed By: #### L 500.4050, L501.6710, L100.0100, L101.9900 ####[facility] [address] [place], [address] Monocytes/100 WBC (Bld) 4.7 % Normal 0-10 [facility] Comment on above: Performed By: #### L 500.4050, L501.6710, L100.0100, L101.9900 ####[facility] [address] [place], [address] Neutrophils/100 WBC (Bld) 68.4 % Normal 47-70 [facility] Comment on above: Performed By: #### L 500.4050, L501.6710, L100.0100, L101.9900 ####[facility] [address] [place], [address] Nucleated RBC (Bld) [#/Vol] 0 10*3/uL Normal 0-5 [facility] Comment on above: Performed By: #### L 500.4050, L501.6710, L100.0100, L101.9900 ####[facility] [address] [place], [address] Platelet mean volume (Bld) [Entitic vol] 11.9 fL Normal 6.2-12.0 [facility] Comment on above: Performed By: #### L 500.4050, L501.6710, L100.0100, L101.9900 ####[facility] [address] [place], [address] Platelets (Bld) [#/Vol] 153 10*3/uL Normal 150-450 [facility] Comment on above: Performed By: #### L 500.4050, L501.6710, L100.0100, L101.9900 ####[facility] [address] [place], [address] RBC (Bld) [#/Vol] 3.10 10*6/uL Low 4.2-5.4 [facility] Comment on above: Performed By: #### L 500.4050, L501.6710, L100.0100, L101.9900 ####[facility] [address] [place], [address] RDW SD 44.5 fl High 35.1-43.9 [facility] Comment on above: Performed By: #### L 500.4050, L501.6710, L100.0100, L101.9900 ####[facility] [address] [place], [address] WBC (Bld) [#/Vol] 5.1 10*3/uL Normal 4.4-11.0 [facility] Comment on above: Performed By: #### L 500.4050, L501.6710, L100.0100, L101.9900 ####[facility] [address] [place], [address] CRPon 11-18-2023 C-REACTIVE PROT 155.00 mg/L High 0.0-3.0 [facility] Comment on above: Result Comment: C-Re active Protein (CRP) provides useful information for thediagnosis, therapy and monitoring of inflammatory processesand associated diseases. For the evaluation of Relative Riskfor Cardiovascular Disease, a High Sensitivity CRP (HSCRP)should be ordered. Performed By: #### L 500.4050, L501.6710, L100.0100, L101.9900 ####[facility] [address] [place], [address] Comprehensive Metabolic Prof ilon 11-18-2023 Albumin [Mass/Vol] 2.5 g/dL Low 3.2-5.0 [facility] Comment on above: Performed By: #### L 500.4050, L501.6710, L100.0100, L101.9900 ####[facility] [address] [place], [address] Albumin/Globulin [Mass ratio] 0.7 {ratio} Low 0.9-2.4 [facility] Comment on above: Performed By: #### L 500.4050, L501.6710, L100.0100, L101.9900 ####[facility] [address] [place], [address] ALK P 73 U/L Normal 45-117 [facility] Comment on above: Performed By: #### L 500.4050, L501.6710, L100.0100, L101.9900 ####[facility] [address] [place], [address] ALT [Catalytic activity/Vol] 34 U/L Normal 13-56 [facility] Comment on above: Performed By: #### L 500.4050, L501.6710, L100.0100, L101.9900 ####[facility] [address] [place], [address] AST [Catalytic activity/Vol] 35 U/L Normal 15-37 [facility] Comment on above: Performed By: #### L 500.4050, L501.6710, L100.0100, L101.9900 ####[facility] [address] [place], [address] Bilirubin [Mass/Vol] 0.30 mg/dL Normal 0.20-1.[address] [facility] Comment on above: Result Comment: For patients on eltrombopag therapy, use of Dimension Viola TBIL is not recommended. Performed By: #### L 500.4050, L501.6710, L100.0100, L101.9900 ####[facility] [address] [place], [address] BUN/CRE 27.4 RATIO High 10-20 [facility] Comment on above: Performed By: #### L 500.4050, L501.6710, L100.0100, L101.9900 ####[facility] [address] [place], [address] CA,Total 8.7 mg/dL Normal 8.5-10.1 [facility] Comment on above: Performed By: #### L 500.4050, L501.6710, L100.0100, L101.9900 ####[facility] [address] [place], [address] Chloride [Moles/Vol] 105 mmol/L Normal 98-[address] [facility] Comment on above: Performed By: #### L 500.4050, L501.6710, L100.0100, L101.9900 ####[facility] [address] [place], [address] CO2 [Moles/Vol] 25.0 mmol/L Normal 21.0-32.0 [facility] Comment on above: Performed By: #### L 500.4050, L501.6710, L100.0100, L101.9900 ####[facility] [address] [place], [address] Creatinine [Mass/Vol] 0.91 mg/dL Normal 0.55-1.02 [facility] Comment on above: Result Comment: The validity of the calculated GFR GFRAA in patients over70 years has not been determined. Clinical correlation isessential. Performed By: #### L 500.4050, L501.6710, L100.0100, L101.9900 ####[facility] [address] [place], [address] ECRCL 54.83 ml/min Normal [facility] Comment on above: Performed By: #### L 500.4050, L501.6710, L100.0100, L101.9900 ####[facility] [address] [place], [address] EST GFR - AA 78 mL/min Normal >60 [facility] Comment on above: Result Comment: Afri can Tanzanian GFR Calc Performed By: #### L 500.4050, L501.6710, L100.0100, L101.9900 ####[facility] [address] [place], [address] GAP 8 Normal 5-15 [facility] Comment on above: Performed By: #### L 500.4050, L501.6710, L100.0100, L101.9900 ####[facility] [address] [place], [address] GFR/1.73 sq M.predicted among non-blacks MDRD (S/P/Bld) [Vol rate/Area] 65 mL/min/{1.73_m2} Normal >60 [facility] Comment on above: Result Comment: Non- GFR Calc Performed By: #### L 500.4050, L501.6710, L100.0100, L101.9900 ####[facility] [address] [place], [address] Globulin (S) [Mass/Vol] 3.7 g/dL Normal 2.2-4.2 [facility] Comment on above: Performed By: #### L 500.4050, L501.6710, L100.0100, L101.9900 ####[facility] [address] [place], [address] Glucose [Mass/Vol] 102 mg/dL Normal 74-106 [facility] Comment on above: Result Comment: Fast ing Glucose result from 100 to 125 mg/dLsuggests IMPAIRED HOMEOSTASIS per A.D.A. criteria. Performed By: #### L 500.4050, L501.6710, L100.0100, L101.9900 ####[facility] [address] [place], [address] Potassium [Moles/Vol] 4.0 mmol/L Normal 3.5-5.1 [facility] Comment on above: Performed By: #### L 500.4050, L501.6710, L100.0100, L101.9900 ####[facility] [address] [place], [address] Sodium [Moles/Vol] 138 mmol/L Normal 136-145 [facility] Comment on above: Performed By: #### L 500.4050, L501.6710, L100.0100, L101.9900 ####[facility] [address] [place], [address] T PROT 6.2 g/dL Low 6.4-8.2 [facility] Comment on above: Performed By: #### L 500.4050, L501.6710, L100.0100, L101.9900 ####[facility] [address] [place], [address] Urea nitrogen [Mass/Vol] 25 mg/dL High 7-18 [facility] Comment on above: Performed By: #### L 500.4050, L501.6710, L100.0100, L101.9900 ####[facility] [address] [place], [address] Discharge Instructionon 11-01 Discharge Instruction Normal [facility] Erythrocyte Sed Rateon 11-17 SED RATE 25 mm/hr Normal 0-30 [facility] Comment on above: Performed By: #### L 500.4050, L501.6710, L100.0100, L101.9900 ####[facility] [address] [place], [address] MR/CON.PCM.NEon 11-18-2023 MR/CON.PCM.NE Normal [facility] Ammoniaon 11-17-2023 Ammonia (P) [Moles/Vol] 41.0 umol/L High 11-32 [facility] Comment on above: Performed By: #### L 509.7000, L101.9900, L500.3400, L503.5510, L501.6710 ####[facility] [address] [place], [address] Basic Metabolic Profile (BMP )on 11-17-2023 BUN/CRE 25.2 RATIO High 10-20 [facility] Comment on above: Performed By: #### L 100.0100, L501.8100, L500.2500 ####[facility] [address] [place], [address] CA,Total 8.5 mg/dL Normal 8.5-10.1 [facility] Comment on above: Performed By: #### L 100.0100, L501.8100, L500.2500 ####[facility] [address] [place], [address] Chloride [Moles/Vol] 105 mmol/L Normal 98-[address] [facility] Comment on above: Performed By: #### L 100.0100, L501.8100, L500.2500 ####[facility] [address] [place], [address] CO2 [Moles/Vol] 26.0 mmol/L Normal 21.0-32.0 [facility] Comment on above: Performed By: #### L 100.0100, L501.8100, L500.2500 ####[facility] [address] [place], [address] Creatinine [Mass/Vol] 1.03 mg/dL High 0.55-1.02 [facility] Comment on above: Result Comment: The validity of the calculated GFR GFRAA in patients over70 years has not been determined. Clinical correlation isessential. Performed By: #### L 100.0100, L501.8100, L500.2500 ####[facility] [address] [place], [address] ECRCL 48.44 ml/min Normal [facility] Comment on above: Performed By: #### L 100.0100, L501.8100, L500.2500 ####[facility] [address] [place], [address] EST GFR - AA 68 mL/min Normal >60 [facility] Comment on above: Result Comment: Afri can Tanzanian GFR Calc Performed By: #### L 100.0100, L501.8100, L500.2500 ####[facility] [address] [place], [address] GAP 5 Normal 5-15 [facility] Comment on above: Performed By: #### L 100.0100, L501.8100, L500.2500 ####[facility] [address] [place], [address] GFR/1.73 sq M.predicted among non-blacks MDRD (S/P/Bld) [Vol rate/Area] 56 mL/min/{1.73_m2} Low >60 [facility] Comment on above: Result Comment: Non- GFR Calc Performed By: #### L 100.0100, L501.8100, L500.2500 ####[facility] [address] [place], [address] Glucose [Mass/Vol] 119 mg/dL High 74-106 [facility] Comment on above: Result Comment: Fast ing Glucose result from 100 to 125 mg/dLsuggests IMPAIRED HOMEOSTASIS per A.D.A. criteria. Performed By: #### L 100.0100, L501.8100, L500.2500 ####[facility] [address] [place], [address] Potassium [Moles/Vol] 4.2 mmol/L Normal 3.5-5.1 [facility] Comment on above: Performed By: #### L 100.0100, L501.8100, L500.2500 ####[facility] [address] [place], [address] Sodium [Moles/Vol] 136 mmol/L Normal 136-145 [facility] Comment on above: Performed By: #### L 100.0100, L501.8100, L500.2500 ####[facility] [address] [place], [address] Urea nitrogen [Mass/Vol] 26 mg/dL High 7-18 [facility] Comment on above: Performed By: #### L 100.0100, L501.8100, L500.2500 ####[facility] [address] [place], [address] Bedside Glucoseon 11-17-2023 FINGERSTICK GLU 94 mg/dL Normal 74-106 [facility] Comment on above: Result Comment: SONAM GEMENT OF PATIENT CARE PER NURSING PROTOCOL Performed By: #### L 501.080 ####[facility] [address] [place], [address] FINGERSTICK GLU 129 mg/dL High 74-106 [facility] Comment on above: Result Comment: SONAM GEMENT OF PATIENT CARE PER NURSING PROTOCOL Performed By: #### L 501.080 ####[facility] [address] [place], [address] FINGERSTICK GLU 146 mg/dL High 74-106 [facility] Comment on above: Result Comment: SONAM GEMENT OF PATIENT CARE PER NURSING PROTOCOL Performed By: #### L 501.080 ####[facility] [address] [place], [address] FINGERSTICK GLU 101 mg/dL Normal 74-106 [facility] Comment on above: Result Comment: SONAM GEMENT OF PATIENT CARE PER NURSING PROTOCOL Performed By: #### L 501.080 ####[facility] [address] [place], [address] CBC W/Diff, Automatedon 07-05 09-2023 Absolute Lymph 1.45 X10 3/uL Normal 0.83-4.51 [facility] Comment on above: Performed By: #### L 100.0100, L501.8100, L500.2500 ####[facility] [address] [place], [address] Absolute Neut 4.8 X10 3/uL Normal 2.0-7.7 [facility] Comment on above: Performed By: #### L 100.0100, L501.8100, L500.2500 ####[facility] [address] [place], [address] Basophils/100 WBC (Bld) 0.1 % Normal 0-1 [facility] Comment on above: Performed By: #### L 100.0100, L501.8100, L500.2500 ####[facility] [address] [place], [address] Eosinophils/100 WBC (Bld) 1.0 % Normal 0-5 [facility] Comment on above: Performed By: #### L 100.0100, L501.8100, L500.2500 ####[facility] [address] [place], [address] Erythrocyte distribution width (RBC) [Ratio] 12.9 % Normal 11.6-14.6 [facility] Comment on above: Performed By: #### L 100.0100, L501.8100, L500.2500 ####[facility] [address] [place], [address] Hematocrit (Bld) [Volume fraction] 30.6 % Low 37-47 [facility] Comment on above: Performed By: #### L 100.0100, L501.8100, L500.2500 ####[facility] [address] [place], [address] Hemoglobin (Bld) [Mass/Vol] 10.0 g/dL Low 12.0-15.0 [facility] Comment on above: Performed By: #### L 100.0100, L501.8100, L500.2500 ####[facility] [address] [place], [address] IG% 0.600 Normal 0.0-0.9 [facility] Comment on above: Result Comment: IG% - Immature Granulocytes (promyelocytes, myelocytes andmetamyelocytes) > 1% indicates that a LEFT SHIFT is Present. Performed By: #### L 100.0100, L501.8100, L500.2500 ####[facility] [address] [place], [address] Lymphocytes/100 WBC (Bld) 20.3 % Normal 19-41 [facility] Comment on above: Performed By: #### L 100.0100, L501.8100, L500.2500 ####[facility] [address] [place], [address] MCH (RBC) [Entitic mass] 32.6 pg High 27.0-32.0 [facility] Comment on above: Performed By: #### L 100.0100, L501.8100, L500.2500 ####[facility] [address] [place], [address] MCHC (RBC) [Mass/Vol] 32.7 g/dL Normal 32-36 [facility] Comment on above: Performed By: #### L 100.0100, L501.8100, L500.2500 ####[facility] [address] [place], [address] MCV (RBC) [Entitic vol] 99.7 fL High 81-99 [facility] Comment on above: Performed By: #### L 100.0100, L501.8100, L500.2500 ####[facility] [address] [place], [address] Monocytes/100 WBC (Bld) 10.4 % High 0-10 [facility] Comment on above: Performed By: #### L 100.0100, L501.8100, L500.2500 ####[facility] [address] [place], [address] Neutrophils/100 WBC (Bld) 67.6 % Normal 47-70 [facility] Comment on above: Performed By: #### L 100.0100, L501.8100, L500.2500 ####[facility] [address] [place], [address] Nucleated RBC (Bld) [#/Vol] 0 10*3/uL Normal 0-5 [facility] Comment on above: Performed By: #### L 100.0100, L501.8100, L500.2500 ####[facility] [address] [place], [address] Platelet mean volume (Bld) [Entitic vol] 11.3 fL Normal 6.2-12.0 [facility] Comment on above: Performed By: #### L 100.0100, L501.8100, L500.2500 ####[facility] [address] [place], [address] Platelets (Bld) [#/Vol] 145 10*3/uL Low 150-450 [facility] Comment on above: Performed By: #### L 100.0100, L501.8100, L500.2500 ####[facility] [address] [place], [address] RBC (Bld) [#/Vol] 3.07 10*6/uL Low 4.2-5.4 [facility] Comment on above: Performed By: #### L 100.0100, L501.8100, L500.2500 ####[facility] [address] [place], [address] RDW SD 46.5 fl High 35.1-43.9 [facility] Comment on above: Performed By: #### L 100.0100, L501.8100, L500.2500 ####[facility] [address] [place], [address] WBC (Bld) [#/Vol] 7.1 10*3/uL Normal 4.4-11.0 [facility] Comment on above: Performed By: #### L 100.0100, L501.8100, L500.2500 ####[facility] [address] [place], [address] CRPon 11-17-2023 C-REACTIVE PROT 161.00 mg/L High 0.0-3.0 [facility] Comment on above: Result Comment: C-Re active Protein (CRP) provides useful information for thediagnosis, therapy and monitoring of inflammatory processesand associated diseases. For the evaluation of Relative Riskfor Cardiovascular Disease, a High Sensitivity CRP (HSCRP)should be ordered. Performed By: #### L 509.7000, L101.9900, L500.3400, L503.5510, L501.6710 ####[facility] [address] [place], [address] Erythrocyte Sed Rateon 11-16 SED RATE 19 mm/hr Normal 0-30 [facility] Comment on above: Performed By: #### L 509.7000, L101.9900, L500.3400, L503.5510, L501.6710 ####[facility] [address] [place], [address] Liver Profileon 11-17-2023 Albumin [Mass/Vol] 2.6 g/dL Low 3.2-5.0 [facility] Comment on above: Performed By: #### L 509.7000, L101.9900, L500.3400, L503.5510, L501.6710 ####[facility] [address] [place], [address] ALK P 50 U/L Normal 45-117 [facility] Comment on above: Performed By: #### L 509.7000, L101.9900, L500.3400, L503.5510, L501.6710 ####[facility] [address] [place], [address] ALT [Catalytic activity/Vol] 14 U/L Normal 13-56 [facility] Comment on above: Performed By: #### L 509.7000, L101.9900, L500.3400, L503.5510, L501.6710 ####[facility] [address] [place], [address] AST [Catalytic activity/Vol] 10 U/L Low 15-37 [facility] Comment on above: Performed By: #### L 509.7000, L101.9900, L500.3400, L503.5510, L501.6710 ####[facility] [address] [place], [address] Bilirubin [Mass/Vol] 0.30 mg/dL Normal 0.20-1.[address] [facility] Comment on above: Result Comment: For patients on eltrombopag therapy, use of Dimension Viola TBIL is not recommended. Performed By: #### L 509.7000, L101.9900, L500.3400, L503.5510, L501.6710 ####[facility] [address] [place], [address] Bilirubin.direct [Mass/Vol] 0.11 mg/dL Normal 0.00-0.30 [facility] Comment on above: Performed By: #### L 509.7000, L101.9900, L500.3400, L503.5510, L501.6710 ####[facility] [address] [place], [address] Globulin (S) [Mass/Vol] 3.7 g/dL Normal 2.2-4.2 [facility] Comment on above: Performed By: #### L 509.7000, L101.9900, L500.3400, L503.5510, L501.6710 ####[facility] [address] [place], [address] T PROT 6.3 g/dL Low 6.4-8.2 [facility] Comment on above: Performed By: #### L 509.7000, L101.9900, L500.3400, L503.5510, L501.6710 ####[facility] [address] [place], [address] Procalcitoninon 11-17-2023 Procalcitonin 0.08 ng/mL Normal 0.00-0.09 [facility] Comment on above: Result Comment: A pr [...] #### L 509.7000, L101.9900, L500.3400, L503.5510, L501.6710 ####[facility] [address] [place], [address] Urinalysis, Completeon 11-16 WBC 0-5 SEEN Normal 0-5 [facility] Comment on above: Order Comment: CLEAN CATCH Performed By: #### L 400.0001, M1 ####[facility] [address] [place], [address] BACTERIA 0 SEEN Normal None Seen [facility] Comment on above: Order Comment: CLEAN CATCH Performed By: #### L 400.0001, M1.0 ####[facility] [address] [place], [address] EPI,SQUAMOUS 0 SEEN Normal 5-10 [facility] Comment on above: Order Comment: CLEAN CATCH Performed By: #### L 400.0001, M1.0 ####[facility] [address] [place], [address] Mucus Ql (Urine sed) [address] [facility] Comment on above: Order Comment: CLEAN CATCH Performed By: #### L 400.0001, M1.2199 ####[facility] [address] [place], [address] RBC 0 SEEN Normal 0-5 [facility] Comment on above: Order Comment: CLEAN CATCH Performed By: #### L 400.0001, M100.2200 ####[facility] [address] [place], [address] Valproic Acid (Depakene) Lev tommy 11-17-2023 VALPROIC ACID 131 ug/mL High 50-100 [facility] Comment on above: Order Comment: Comme nts: before AM depakote Performed By: #### L 100.0100, L501.8100, L500.2500 ####[facility] [address] [place], [address] Basic Metabolic Profile (BMP )on 11-16-2023 BUN/CRE 23.7 RATIO High 10-20 [facility] Comment on above: Performed By: #### L 501.5200, L500.2500, L100.0100, L501.2300, L501.9985 ####[facility] [address] [place], [address] CA,Total 8.5 mg/dL Normal 8.5-10.1 [facility] Comment on above: Performed By: #### L 501.5200, L500.2500, L100.0100, L501.2300, L501.9985 ####[facility] [address] [place], [address] Chloride [Moles/Vol] 105 mmol/L Normal 98-[address] [facility] Comment on above: Performed By: #### L 501.5200, L500.2500, L100.0100, L501.2300, L501.9985 ####[facility] [address] [place], [address] CO2 [Moles/Vol] 26.0 mmol/L Normal 21.0-32.0 [facility] Comment on above: Performed By: #### L 501.5200, L500.2500, L100.0100, L501.2300, L501.9985 ####[facility] [address] [place], [address] Creatinine [Mass/Vol] 0.84 mg/dL Normal 0.55-1.02 [facility] Comment on above: Result Comment: The validity of the calculated GFR GFRAA in patients over70 years has not been determined. Clinical correlation isessential. Performed By: #### L 501.5200, L500.2500, L100.0100, L501.2300, L501.9985 ####[facility] [address] [place], [address] ECRCL 59.48 ml/min Normal [facility] Comment on above: Performed By: #### L 501.5200, L500.2500, L100.0100, L501.2300, L501.9985 ####[facility] [address] [place], [address] EST GFR - AA 86 mL/min Normal >60 [facility] Comment on above: Result Comment: Afri can Tanzanian GFR Calc Performed By: #### L 501.5200, L500.2500, L100.0100, L501.2300, L501.9985 ####[facility] [address] [place], [address] GAP 6 Normal 5-15 [facility] Comment on above: Performed By: #### L 501.5200, L500.2500, L100.0100, L501.2300, L501.9985 ####[facility] [address] [place], [address] GFR/1.73 sq M.predicted among non-blacks MDRD (S/P/Bld) [Vol rate/Area] 71 mL/min/{1.73_m2} Normal >60 [facility] Comment on above: Result Comment: Non- GFR Calc Performed By: #### L 501.5200, L500.2500, L100.0100, L501.2300, L501.9985 ####[facility] [address] [place], [address] Glucose [Mass/Vol] 121 mg/dL High 74-106 [facility] Comment on above: Result Comment: Fast ing Glucose result from 100 to 125 mg/dLsuggests IMPAIRED HOMEOSTASIS per A.D.A. criteria. Performed By: #### L 501.5200, L500.2500, L100.0100, L501.2300, L501.9985 ####[facility] [address], [address] Potassium [Moles/Vol] 4.1 mmol/L Normal 3.5-5.1 [facility] Comment on above: Performed By: #### L 501.5200, L500.2500, L100.0100, L501.2300, L501.9985 ####[facility] [address] [place], [address] Sodium [Moles/Vol] 137 mmol/L Normal 136-145 [facility] Comment on above: Performed By: #### L 501.5200, L500.2500, L100.0100, L501.2300, L501.9985 ####[facility] [address] [place], [address] Urea nitrogen [Mass/Vol] 20 mg/dL High 7-18 [facility] Comment on above: Performed By: #### L 501.5200, L500.2500, L100.0100, L501.2300, L501.9985 ####[facility] [address] [place], [address] Bedside Glucoseon 11-16-2023 FINGERSTICK GLU 84 mg/dL Normal 74-106 [facility] Comment on above: Result Comment: SONAM GEMENT OF PATIENT CARE PER NURSING PROTOCOL Performed By: #### L 501.080 ####[facility] [address] [place], [address] FINGERSTICK GLU 123 mg/dL High 74-106 [facility] Comment on above: Result Comment: SONAM GEMENT OF PATIENT CARE PER NURSING PROTOCOL Performed By: #### L 501.080 ####[facility] [address] [place], [address] FINGERSTICK GLU 138 mg/dL High 74-106 [facility] Comment on above: Result Comment: SONAM GEMENT OF PATIENT CARE PER NURSING PROTOCOL Performed By: #### L 501.080 ####[facility] [address] [place], [address] FINGERSTICK GLU 106 mg/dL Normal 74-106 [facility] Comment on above: Result Comment: SONAM GEMENT OF PATIENT CARE PER NURSING PROTOCOL Performed By: #### L 501.080 ####[facility] [address] [place], [address] CBC W/Diff, Automatedon 07-05 08-2023 Absolute Lymph 1.49 X10 3/uL Normal 0.83-4.51 [facility] Comment on above: Performed By: #### L 501.5200, L500.2500, L100.0100, L501.2300, L501.9985 ####[facility] [address] [place], [address] Absolute Neut 4.3 X10 3/uL Normal 2.0-7.7 [facility] Comment on above: Performed By: #### L 501.5200, L500.2500, L100.0100, L501.2300, L501.9985 ####[facility] [address] [place], [address] Basophils/100 WBC (Bld) 0.1 % Normal 0-1 [facility] Comment on above: Performed By: #### L 501.5200, L500.2500, L100.0100, L501.2300, L501.9985 ####[facility] [address] [place], [address] Eosinophils/100 WBC (Bld) 1.2 % Normal 0-5 [facility] Comment on above: Performed By: #### L 501.5200, L500.2500, L100.0100, L501.2300, L501.9985 ####[facility] [address] [place], [address] Erythrocyte distribution width (RBC) [Ratio] 13.0 % Normal 11.6-14.6 [facility] Comment on above: Performed By: #### L 501.5200, L500.2500, L100.0100, L501.2300, L501.9985 ####[facility] [address] [place], [address] Hematocrit (Bld) [Volume fraction] 34.7 % Low 37-47 [facility] Comment on above: Performed By: #### L 501.5200, L500.2500, L100.0100, L501.2300, L501.9985 ####[facility] [address] [place], [address] Hemoglobin (Bld) [Mass/Vol] 11.5 g/dL Low 12.0-15.0 [facility] Comment on above: Performed By: #### L 501.5200, L500.2500, L100.0100, L501.2300, L501.9985 ####[facility] [address] [place], [address] IG% 0.100 Normal 0.0-0.9 [facility] Comment on above: Result Comment: IG% - Immature Granulocytes (promyelocytes, myelocytes andmetamyelocytes) > 1% indicates that a LEFT SHIFT is Present. Performed By: #### L 501.5200, L500.2500, L100.0100, L501.2300, L501.9985 ####[facility] [address] [place], [address] Lymphocytes/100 WBC (Bld) 22.0 % Normal 19-41 [facility] Comment on above: Performed By: #### L 501.5200, L500.2500, L100.0100, L501.2300, L501.9985 ####[facility] [address] [place], [address] MCH (RBC) [Entitic mass] 32.8 pg High 27.0-32.0 [facility] Comment on above: Performed By: #### L 501.5200, L500.2500, L100.0100, L501.2300, L501.9985 ####[facility] [address] [place], [address] MCHC (RBC) [Mass/Vol] 33.1 g/dL Normal 32-36 [facility] Comment on above: Performed By: #### L 501.5200, L500.2500, L100.0100, L501.2300, L501.9985 ####[facility] [address] [place], [address] MCV (RBC) [Entitic vol] 98.9 fL Normal 81-99 [facility] Comment on above: Performed By: #### L 501.5200, L500.2500, L100.0100, L501.2300, L501.9985 ####[facility] [address] [place], [address] Monocytes/100 WBC (Bld) 13.9 % High 0-10 [facility] Comment on above: Performed By: #### L 501.5200, L500.2500, L100.0100, L501.2300, L501.9985 ####[facility] [address] [place], [address] Neutrophils/100 WBC (Bld) 62.7 % Normal 47-70 [facility] Comment on above: Performed By: #### L 501.5200, L500.2500, L100.0100, L501.2300, L501.9985 ####[facility] [address] [place], [address] Nucleated RBC (Bld) [#/Vol] 0 10*3/uL Normal 0-5 [facility] Comment on above: Performed By: #### L 501.5200, L500.2500, L100.0100, L501.2300, L501.9985 ####[facility] [address] [place], [address] Platelet mean volume (Bld) [Entitic vol] 11.5 fL Normal 6.2-12.0 [facility] Comment on above: Performed By: #### L 501.5200, L500.2500, L100.0100, L501.2300, L501.9985 ####[facility] [address] [place], [address] Platelets (Bld) [#/Vol] 141 10*3/uL Low 150-450 [facility] Comment on above: Performed By: #### L 501.5200, L500.2500, L100.0100, L501.2300, L501.9985 ####[facility] [address] [place], [address] RBC (Bld) [#/Vol] 3.51 10*6/uL Low 4.2-5.4 [facility] Comment on above: Performed By: #### L 501.5200, L500.2500, L100.0100, L501.2300, L501.9985 ####[facility] [address] [place], [address] RDW SD 47.1 fl High 35.1-43.9 [facility] Comment on above: Performed By: #### L 501.5200, L500.2500, L100.0100, L501.2300, L501.9985 ####[facility] [address] [place], [address] WBC (Bld) [#/Vol] 6.8 10*3/uL Normal 4.4-11.0 [facility] Comment on above: Performed By: #### L 501.5200, L500.2500, L100.0100, L501.2300, L501.9985 ####[facility] [address] [place], [address] Consultation - Orthopedicson 11-16-2023 Consultation - Orthopedics Normal [facility] Echo Completeon 11-16-2023 Echo Complete Normal [facility] Hemoglobin A1con 11-16-2023 HbA1c (Bld) [Mass fraction] 6.3 % High 3.8-5.6 [facility] Comment on above: Result Comment: Norm al < 5.7 % Prediabetic 5.7 - 6.4 % Diabetic >or= 6.5 % Please note range changes. Performed By: #### L 501.5200, L500.2500, L100.0100, L501.2300, L501.9985 ####[facility] [address] [place], [address] M100.019on 11-16-2023 M100.019 Negative Normal [facility] Comment on above: Performed By: #### M 100.019, M100.638 ####[facility] [address] [place], [address] Magnesiumon 11-16-2023 Magnesium [Mass/Vol] 2.1 mg/dL Normal 1.6-2.[address] [facility] Comment on above: Performed By: #### L 501.5200, L500.2500, L100.0100, L501.2300, L501.9985 ####[facility] [address] [place], [address] Phosphoruson 11-16-2023 Phosphate [Mass/Vol] 4.0 mg/dL Normal 2.5-4.[address] [facility] Comment on above: Performed By: #### L 501.5200, L500.2500, L100.0100, L501.2300, L501.9985 ####[facility] [address] [place], [address] RESPIRATORY PANEL MOLECULARo n 11-16-2023 RP PANEL Normal [facility] Comment on above: Performed By: #### M 100.019, M100.638 ####[facility] [address] [place], [address] Upper Ext Joint Only(Routine )on 11-16-2023 Upper Ext Joint Only(Routine) Normal [facility] Venous Duplex US - Jovani Extre mon 11-16-2023 Venous Duplex US - Jovani Extrem Normal [facility] 12 Lead EKGon 11-15-2023 12 Lead EKG Normal [facility] BNP,B-Type NATRIURETIC PEPTI Lucina 11-15-2023 Natriuretic peptide B (Bld) [Mass/Vol] 6.6 pg/mL Normal 0-100 [facility] Comment on above: Performed By: #### L 503.6620 ####[facility] [address] [place], [address] Basic Metabolic Profile (BMP )on 11-15-2023 BUN/CRE 25.0 RATIO High 10-20 [facility] Comment on above: Order Comment: 1Y Performed By: #### L 500.2500, L300.3900, L501.5425, L100.0100, L501.5200 ####[facility] [address] [place], [address] CA,Total 8.7 mg/dL Normal 8.5-10.1 [facility] Comment on above: Order Comment: 1Y Performed By: #### L 500.2500, L300.3900, L501.5425, L100.0100, L501.5200 ####[facility] [address] [place], [address] Chloride [Moles/Vol] 109 mmol/L High 98-[address] [facility] Comment on above: Order Comment: 1Y Performed By: #### L 500.2500, L300.3900, L501.5425, L100.0100, L501.5200 ####[facility] [address] [place], [address] CO2 [Moles/Vol] 21.0 mmol/L Normal 21.0-32.0 [facility] Comment on above: Order Comment: 1Y Performed By: #### L 500.2500, L300.3900, L501.5425, L100.0100, L501.5200 ####[facility] [address] [place], [address] Creatinine [Mass/Vol] 1.04 mg/dL High 0.55-1.02 [facility] Comment on above: Order Comment: 1Y Result Comment: The validity of the calculated GFR GFRAA in patients over70 years has not been determined. Clinical correlation isessential. Performed By: #### L 500.2500, L300.3900, L501.5425, L100.0100, L501.5200 ####[facility] [address] [place], [address] ECRCL 51.32 ml/min Normal [facility] Comment on above: Order Comment: 1Y Performed By: #### L 500.2500, L300.3900, L501.5425, L100.0100, L501.5200 ####[facility] [address] [place], [address] EST GFR - AA 67 mL/min Normal >60 [facility] Comment on above: Order Comment: 1Y Result Comment: Afri can Tanzanian GFR Calc Performed By: #### L 500.2500, L300.3900, L501.5425, L100.0100, L501.5200 ####[facility] [address] [place], [address] GAP 6 Normal 5-15 [facility] Comment on above: Order Comment: 1Y Performed By: #### L 500.2500, L300.3900, L501.5425, L100.0100, L501.5200 ####[facility] [address] [place], [address] GFR/1.73 sq M.predicted among non-blacks MDRD (S/P/Bld) [Vol rate/Area] 56 mL/min/{1.73_m2} Low >60 [facility] Comment on above: Order Comment: 1Y Result Comment: Non- GFR Calc Performed By: #### L 500.2500, L300.3900, L501.5425, L100.0100, L501.5200 ####[facility] [address] [place], [address] Glucose [Mass/Vol] 140 mg/dL High 74-106 [facility] Comment on above: Order Comment: 1Y Result Comment: Fast ing Glucose result greater than or equal to 126 mg/dLsuggests DIABETES MELLITUS per A.D.A. criteria. Performed By: #### L 500.2500, L300.3900, L501.5425, L100.0100, L501.5200 ####[facility] [address] [place], [address] Potassium [Moles/Vol] 4.5 mmol/L Normal 3.5-5.1 [facility] Comment on above: Order Comment: 1Y Performed By: #### L 500.2500, L300.3900, L501.5425, L100.0100, L501.5200 ####[facility] [address] [place], [address] Sodium [Moles/Vol] 136 mmol/L Normal 136-145 [facility] Comment on above: Order Comment: 1Y Performed By: #### L 500.2500, L300.3900, L501.5425, L100.0100, L501.5200 ####[facility] [address] [place], [address] Urea nitrogen [Mass/Vol] 26 mg/dL High 7-18 [facility] Comment on above: Order Comment: 1Y Performed By: #### L 500.2500, L300.3900, L501.5425, L100.0100, L501.5200 ####[facility] [address] [place], [address] Bedside Glucoseon 11-15-2023 FINGERSTICK GLU 124 mg/dL High 74-106 [facility] Comment on above: Result Comment: SONAM GEMENT OF PATIENT CARE PER NURSING PROTOCOL Performed By: #### L 501.080 ####[facility] [address] [place], [address] FINGERSTICK GLU 107 mg/dL High 74-106 [facility] Comment on above: Result Comment: SONAM GEMENT OF PATIENT CARE PER NURSING PROTOCOL Performed By: #### L 501.080 ####[facility] [address] [place], [address] CBC W/Diff, Automatedon 07- Absolute Lymph 1.34 X10 3/uL Normal 0.83-4.51 [facility] Comment on above: Performed By: #### L 500.2500, L300.3900, L501.5425, L100.0100, L501.5200 ####[facility] [address] [place], [address] Absolute Neut 6.7 X10 3/uL Normal 2.0-7.7 [facility] Comment on above: Performed By: #### L 500.2500, L300.3900, L501.5425, L100.0100, L501.5200 ####[facility] [address] [place], [address] Basophils/100 WBC (Bld) 0.2 % Normal 0-1 [facility] Comment on above: Performed By: #### L 500.2500, L300.3900, L501.5425, L100.0100, L501.5200 ####[facility] [address] [place], [address] Eosinophils/100 WBC (Bld) 0.8 % Normal 0-5 [facility] Comment on above: Performed By: #### L 500.2500, L300.3900, L501.5425, L100.0100, L501.5200 ####[facility] [address] [place], [address] Erythrocyte distribution width (RBC) [Ratio] 13.0 % Normal 11.6-14.6 [facility] Comment on above: Performed By: #### L 500.2500, L300.3900, L501.5425, L100.0100, L501.5200 ####[facility] [address] [place], [address] Hematocrit (Bld) [Volume fraction] 36.5 % Low 37-47 [facility] Comment on above: Performed By: #### L 500.2500, L300.3900, L501.5425, L100.0100, L501.5200 ####[facility] [address] [place], [address] Hemoglobin (Bld) [Mass/Vol] 12.0 g/dL Normal 12.0-15.0 [facility] Comment on above: Performed By: #### L 500.2500, L300.3900, L501.5425, L100.0100, L501.5200 ####[facility] [address] [place], [address] IG% 0.400 Normal 0.0-0.9 [facility] Comment on above: Result Comment: IG% - Immature Granulocytes (promyelocytes, myelocytes andmetamyelocytes) > 1% indicates that a LEFT SHIFT is Present. Performed By: #### L 500.2500, L300.3900, L501.5425, L100.0100, L501.5200 ####[facility] [address] [place], [address] Lymphocytes/100 WBC (Bld) 15.0 % Low 19-41 [facility] Comment on above: Performed By: #### L 500.2500, L300.3900, L501.5425, L100.0100, L501.5200 ####[facility] [address] [place], [address] MCH (RBC) [Entitic mass] 32.8 pg High 27.0-32.0 [facility] Comment on above: Performed By: #### L 500.2500, L300.3900, L501.5425, L100.0100, L501.5200 ####[facility] [address] [place], [address] MCHC (RBC) [Mass/Vol] 32.9 g/dL Normal 32-36 [facility] Comment on above: Performed By: #### L 500.2500, L300.3900, L501.5425, L100.0100, L501.5200 ####[facility] [address] [place], [address] MCV (RBC) [Entitic vol] 99.7 fL High 81-99 [facility] Comment on above: Performed By: #### L 500.2500, L300.3900, L501.5425, L100.0100, L501.5200 ####[facility] [address] [place], [address] Monocytes/100 WBC (Bld) 8.2 % Normal 0-10 [facility] Comment on above: Performed By: #### L 500.2500, L300.3900, L501.5425, L100.0100, L501.5200 ####[facility] [address] [place], [address] Neutrophils/100 WBC (Bld) 75.4 % High 47-70 [facility] Comment on above: Performed By: #### L 500.2500, L300.3900, L501.5425, L100.0100, L501.5200 ####[facility] [address] [place], [address] Nucleated RBC (Bld) [#/Vol] 0 10*3/uL Normal 0-5 [facility] Comment on above: Performed By: #### L 500.2500, L300.3900, L501.5425, L100.0100, L501.5200 ####[facility] [address] [place], [address] Platelet mean volume (Bld) [Entitic vol] 11.4 fL Normal 6.2-12.0 [facility] Comment on above: Performed By: #### L 500.2500, L300.3900, L501.5425, L100.0100, L501.5200 ####[facility] [address] [place], [address] Platelets (Bld) [#/Vol] 159 10*3/uL Normal 150-450 [facility] Comment on above: Performed By: #### L 500.2500, L300.3900, L501.5425, L100.0100, L501.5200 ####[facility] [address] [place], [address] RBC (Bld) [#/Vol] 3.66 10*6/uL Low 4.2-5.4 [facility] Comment on above: Performed By: #### L 500.2500, L300.3900, L501.5425, L100.0100, L501.5200 ####[facility] [address] [place], [address] RDW SD 47.8 fl High 35.1-43.9 [facility] Comment on above: Performed By: #### L 500.2500, L300.3900, L501.5425, L100.0100, L501.5200 ####[facility] [address] [place], [address] WBC (Bld) [#/Vol] 8.9 10*3/uL Normal 4.4-11.0 [facility] Comment on above: Performed By: #### L 500.2500, L300.3900, L501.5425, L100.0100, L501.5200 ####[facility] [address] [place], [address] CTA Chest W/WO Contraston CTA Chest W/WO Contrast Normal [facility] D-Dimer Quantitative (DVT/PE )on 11-15-2023 D-DIMER QUANT 0.61 FEU/ug/m Invalid Interpretation Code 0.27-0.49 [facility] Comment on above: Result Comment: D-Di rodger ELEVATED (>0.49): Additional studies and clinicalassessments are indicated to conclude diagnosis of:Deep Vein Thrombosis (DVT) or Pulmonary Embolism (PE)CRITICAL VALUE VERIFIED. CALLED TO MADDIE FONSECA11/15/23 1421 Rhiannon Dominguez.RESULTS READ BACK BY SAME . Performed By: #### L 300.8000 ####[facility] [address] [place], [address] Emergency Department Summary on 11-15-2023 Emergency Department Summary Normal [facility] H AND P Exam - Hospitaliston 11-15-2023 H&P Exam - Hospitalist Normal [facility] L501.4020on 11-15-2023 TROPONIN-I HS 4 pg/mL Normal 3.0-54.0 [facility] Comment on above: Order Comment: Comme nts: SPECIMEN #3'TROP' Serial specimen #1, #2 or #3: 3 Result Comment: Plea se Note: New Test Units and Gender Specific Reference Ranges. For more information see Policy Stat Procedure [place] High Sensitivity Troponin (TNIH) and attachments. Performed By: #### L 501.4020 ####[facility] [address] [place], [address] TROPONIN-I HS 4 pg/mL Normal 3.0-54.0 [facility] Comment on above: Result Comment: Plea se Note: New Test Units and Gender Specific Reference Ranges. For more information see Policy Stat Procedure [place] High Sensitivity Troponin (TNIH) and attachments. Performed By: #### L 501.4020 ####[facility] [address] [place], [address] L501.5425on 11-15-2023 TROPONIN-I HS 4 pg/mL Normal 3.0-54.0 [facility] Comment on above: Order Comment: 1Y Result Comment: Plea se Note: New Test Units and Gender Specific Reference Ranges. For more information see Policy Stat Procedure [place] High Sensitivity Troponin (TNIH) and attachments. Performed By: #### L 500.2500, L300.3900, L501.5425, L100.0100, L501.5200 ####[facility] [address] [place], [address] Magnesiumon 11-15-2023 Magnesium [Mass/Vol] 1.9 mg/dL Normal 1.6-2.[address] [facility] Comment on above: Order Comment: 1Y Performed By: #### L 500.2500, L300.3900, L501.5425, L100.0100, L501.5200 ####[facility] [address] [place], [address] Partial Thromboplast Timeon 11-15-2023 aPTT Coag (Bld) [Time] 26.8 s Normal 24.1-36.2 [facility] Comment on above: Order Comment: REDRA W. PREVIOUS SPECIMEN REJECTED DUE TOQNS. 11/15/23 1112 Rhiannon Dominguez. Performed By: #### L 300.3900, L300.4310 ####[facility] [address] [place], [address] Prothrombin Time w/INRon INR Coag (PPP) [Relative time] 1.1 {INR} Normal [facility] Comment on above: Order Comment: REDRA W. PREVIOUS SPECIMEN REJECTED DUE TOQNS. 11/15/23 1112 Rhiannon Dominguez. Performed By: #### L 300.3900, L300.4310 ####[facility] [address] [place], [address] PT Coag (PPP) [Time] 14.1 s Normal 11.7-14.[address] [facility] Comment on above: Order Comment: REDRA W. PREVIOUS SPECIMEN REJECTED DUE TOQNS. 11/15/23 1112 Rhiannon Dominguez. Performed By: #### L 300.3900, L300.4310 ####[facility] [address] [place], [address] INR Normal [facility] Comment on above: Result Comment: This specimen has been REJECTED due to Laboratory criteria:Quantity Not Sufficient.Yemi BOO has been notified of need of recollection.11/15/23 1111 Rhiannon Dominguez Performed By: #### L 500.2500, L300.3900, L501.5425, L100.0100, L501.5200 ####[facility] [address] [place], [address] PROTIME Normal 11.7-14.9 [facility] Comment on above: Result Comment: This specimen has been REJECTED due to Laboratory criteria:Quantity Not Sufficient.Yemi BOO has been notified of need of recollection.11/15/23 1111 Rhiannon Dominguez Performed By: #### L 500.2500, L300.3904, L501.5466, L100.0100, L501.5200 ####[facility] [address] [place], [address] Absolute lymphocyte countOrd ered By: Pepe Ruiz on 09-07-2023 Lymphocytes Auto (Unsp spec) [#/Vol] 1.27 10*3/uL 0.83-4.51 [facility] Automated lymphocyte count a s percentage of total leukocytesOrdered By: Pepe Ruiz on 09-07-2023 Lymphocytes/100 WBC Auto (Unsp spec) 31.9 % 19-41 [facility] Basophil percentageOrdered B y: Pepe Ruiz on 09-07-2023 Basophils/100 WBC (Bld) 0.3 % 0-1 [facility] Eosinophils/100 WBC (Bld) 6.5 % 0-5 [facility] Hemoglobin (Bld) [Mass/Vol] 10.8 g/dL 12.0-15.0 [facility] Monocytes/100 WBC (Bld) 9.3 % 0-10 [facility] Neutrophils (Bld) [#/Vol] 2.0 10*3/uL 2.0-7.7 [facility] Neutrophils/100 WBC (Bld) 51.2 % 47-70 [facility] WBC (Bld) [#/Vol] 4.0 10*3/uL 4.4-11.0 [facility] Ammonia (P) [Moles/Vol] 67.0 umol/L 11-32 [facility] Basophil percentage 17.0 IU/mL <15 [facility] Bilirubin [Mass/Vol] 0.30 mg/dL 0.20-1.[address] [facility] Comment on above: For patients on eltr ombopag therapy, use of Dimension Viola TBIL is not recommended. Chloride [Moles/Vol] 111 mmol/L 98-[address] [facility] Glucose [Mass/Vol] 139 mg/dL 74-106 [facility] Comment on above: Fasting Glucose resu lt greater than or equal to 126 mg/dL suggests DIABETES MELLITUS per A.D.A. criteria. Potassium [Moles/Vol] 4.0 mmol/L 3.5-5.1 [facility] Protein [Mass/Vol] 6.6 g/dL 6.4-8.2 [facility] Sodium [Moles/Vol] 141 mmol/L 136-145 [facility] Determination of erythrocyte mean corpuscular volume (MCV)Ordered By: Pepe Ruiz on 09-07-2023 MCV (RBC) [Entitic vol] 100.0 fL 81-99 [facility] Erythrocyte distribution wid th ratioOrdered By: Pepeamol Ruiz on 09-07-2023 Erythrocyte distribution width (RBC) [Ratio] 14.2 % 11.6-14.6 [facility] Erythrocyte distribution wid th standard deviationOrdered By: Pepe Ruiz on 09-07-2023 Erythrocyte distribution width (RBC) [Entitic vol] 52.2 fL 35.1-43.9 [facility] Erythrocyte sedimentation ra teOrdered By: Pepe Ruiz on 09-07-2023 ESR (Bld) [Velocity] 2 mm/h 0-[address] [facility] Hematocrit Auto (Bld) [Volum e fraction]Ordered By: Pepe Ruiz on 09-07-2023 Hematocrit (Bld) [Volume fraction] 33.0 % 37-47 [facility] Immature granulocytes/100 WB C Auto (Bld)Ordered By: Pepeamol Ruiz on 09-07-2023 Immature granulocytes/100 WBC (Bld) 0.800 % 0.0-0.9 [facility] Comment on above: IG% - Immature Granu locytes (promyelocytes, myelocytes and metamyelocytes) > 1% indicates that a LEFT SHIFT is Present. Laboratory - Chemistry and C hemistry - challengeOrdered By: Pepe Ruiz on 09-07-2023 Albumin/Globulin [Mass ratio] 0.7 {ratio} 0.9-2.4 [facility] ALP [Catalytic activity/Vol] 93 U/L 45-117 [facility] ALT [Catalytic activity/Vol] 21 U/L 13-56 [facility] CO2 [Moles/Vol] 25.0 mmol/L 21.0-32.0 [facility] Cobalamin (Vitamin B12) [Mass/Vol] 366 pg/mL 211-911 [facility] Globulin (S) [Mass/Vol] 3.8 g/dL 2.2-4.2 [facility] Urea nitrogen/Creatinine [Mass ratio] 21.4 mg/mg 10-20 [facility] Laboratory - Hematology and Cell countsOrdered By: Pepe Ruiz on 09-07-2023 MCH (RBC) [Entitic mass] 32.7 pg 27.0-32.0 [facility] MCHC (RBC) [Mass/Vol] 32.7 g/dL 32-36 [facility] Nucleated RBC/100 WBC (Bld) [Ratio] 0 % 0-5 [facility] Platelet mean volume (Bld) [Entitic vol] 12.0 fL 6.2-12.0 [facility] Platelets (Bld) [#/Vol] 186 10*3/uL 150-450 [facility] No Panel InformationOrdered By: Pepe Ruiz on 09-07-2023 Anti-Nuclear Antibody Screen Negative Negative [facility] Comment on above: Performed at: [employer] [address] Director: Lobo Das PhD, Phone: [phone] C-Reactive Protein Extended Range < 2.90 mg/L 0.0-3.0 [facility] Comment on above: C-Reactive Protein ( CRP) provides useful information for thediagnosis, therapy and monitoring of inflammatory processesand associated diseases. For the evaluation of Relative Riskfor Cardiovascular Disease, a High Sensitivity CRP (HSCRP)should be ordered. Estimated GFR (MDRD) Amer 76 mL/min >60 [facility] Comment on above: GFR Calc Estimated GFR (MDRD) Non-Af Amer 63 mL/min >60 [facility] Comment on above: Non- GFR Calc Folate 9.10 ng/mL 3.1-55.4 [facility] Hepatitis B Surface Antigen Non-Reactive Nonreactive [facility] Hepatitis C Antibody Non-Reactive Nonreactive [facility] Comment on above: Non Reactive: < 0.8 Equivocal: >/= 0.8 to < 1.0 Reactive: >/= 1.0The CDC requires that a reactive/equivocal HCV antibody result be sent out for confirmation. HCV Quant by PCR testing. Valproic Acid (Depakene) Level 103 ug/mL 50-100 [facility] RBC Auto (Bld) [#/Vol]Ordere d By: Pepe Ruiz on 09-07-2023 RBC (Bld) [#/Vol] 3.30 10*6/uL 4.2-5.4 [facility] Serum cyclic citrullinated p eptide IgG antibody assay (units/volume)Ordered By: Pepe Ruiz on 09-07-2023 Cyclic citrullinated peptide IgG Qn 7 units 0-19 [facility] Comment on above: Negative <20 Weak po sitive 20 - 39 Moderate positive 40 - 59 Strong positive >59Performed at: [employer] [id number] Director: Adamaris Shi MD, Phone: [phone] at: [email or web address] [address] [id number] Director: Lobo Das PhD, Phone: [phone] Serum hepatitis B virus surf shelly antibody IgG detectionOrdered By: Pepe Ruiz on 09-07-2023 HBV surface IgG Ql (S) Non-Reactive [facility] Comment on above: Non Reactive: Incons istent with immunity less than <10 mIU/mL Reactive: Consistent with immunity greater than or equal to 10 mIU/mL Serum or plasma calcium loretta urement (mass/volume)Ordered By: Pepe Ruiz on 09-07-2023 Calcium [Mass/Vol] 8.4 mg/dL 8.5-10.1 [facility] Serum or plasma creatinine m easurement (mass/volume)Ordered By: Pepe Ruiz on 09-07-2023 Creatinine [Mass/Vol] 0.94 mg/dL 0.55-1.02 [facility] Comment on above: The validity of the calculated GFR & GFRAA in patients over 70 years has not been determined. Clinical correlation is essential. Serum or plasma thiamine kirill surement (mass/volume)Ordered By: Pepe Ruiz on 09-07-2023 Thiamine [Mass/Vol] 109.8 nmol/L 66.5-200.0 [facility] Serum or plasma thyroid stim ulating hormone (TSH) measurement (units/volume)Ordered By: Pepe Ruiz on 09-07-2023 TSH Qn 2.91 uIU/mL 0.358-3.74 [facility] Serum or plasma urea nitroge n measurement (mass/volume)Ordered By: Pepe Ruiz on 09-07-2023 Urea nitrogen [Mass/Vol] 20 mg/dL 7-18 [facility] Thin prep Papanicolaou smear with manual screeningOrdered By: Pepeamol Ruiz on 09-07-2023 Thin prep Papanicolaou smear with manual screening 2.8 g/dL 3.2-5.0 [facility] Thin prep Papanicolaou smear with manual screening 21 U/L 15-37 [facility] Thin prep Papanicolaou smear with manual screening 5 5-15 [facility] Basophil percentageOrdered B y: Vadim Mckinney on 08-14-2023 Basophil percentage < 1.0 mg/dL 0.55-1.[address] [facility] No Panel InformationOrdered By: Vadim Mckinney on 08-14-2023 Bedside Estimated GFR (eGFR) > 60.0000 mL/min >60 [facility] Absolute lymphocyte countOrd ered By: Mayda Garcia on 06-17-2023 Lymphocytes Auto (Unsp spec) [#/Vol] 0.86 10*3/uL 0.83-4.51 [facility] Automated lymphocyte count a s percentage of total leukocytesOrdered By: Mayda Garcia on 06-17-2023 Lymphocytes/100 WBC Auto (Unsp spec) 27.2 % 19-41 [facility] Basophil percentageOrdered B y: Mayda Garcia on 06-17-2023 Basophils/100 WBC (Bld) 0.6 % 0-1 [facility] Chloride [Moles/Vol] 112 mmol/L 98-[address] [facility] Eosinophils/100 WBC (Bld) 2.8 % 0-5 [facility] Glucose [Mass/Vol] 138 mg/dL 74-106 [facility] Comment on above: Fasting Glucose resu lt greater than or equal to 126 mg/dL suggests DIABETES MELLITUS per A.D.A. criteria. Hemoglobin (Bld) [Mass/Vol] 12.2 g/dL 12.0-15.0 [facility] Monocytes/100 WBC (Bld) 6.0 % 0-10 [facility] Neutrophils (Bld) [#/Vol] 2.0 10*3/uL 2.0-7.7 [facility] Neutrophils/100 WBC (Bld) 63.1 % 47-70 [facility] Potassium [Moles/Vol] 4.1 mmol/L 3.5-5.1 [facility] Sodium [Moles/Vol] 142 mmol/L 136-145 [facility] WBC (Bld) [#/Vol] 3.2 10*3/uL 4.4-11.0 [facility] Determination of erythrocyte mean corpuscular volume (MCV)Ordered By: Mayda Garcia on 06-17-2023 MCV (RBC) [Entitic vol] 99.0 fL 81-99 [facility] Erythrocyte distribution wid th ratioOrdered By: [facility]antac[facility] Garcia on 06-17-2023 Erythrocyte distribution width (RBC) [Ratio] 14.3 % 11.6-14.6 [facility] Erythrocyte distribution wid th standard deviationOrdered By: [facility] Atlantaconsuelo Ibanezchandana on 06-17-2023 Erythrocyte distribution width (RBC) [Entitic vol] 52.5 fL 35.1-43.9 [facility] Hematocrit Auto (Bld) [Volum e fraction]Ordered By: Norismonktoncosnuelo Garcia on 06-17-2023 Hematocrit (Bld) [Volume fraction] 38.8 % 37-47 [facility] Immature granulocytes/100 WB C Auto (Bld)Ordered By: michellemonktonconsuelo Garcia on 06-17-2023 Immature granulocytes/100 WBC (Bld) 0.300 % 0.0-0.9 [facility] Comment on above: IG% - Immature Granu locytes (promyelocytes, myelocytes and metamyelocytes) > 1% indicates that a LEFT SHIFT is Present. Laboratory - Chemistry and C hemistry - challengeOrdered By: Mayda Garcia on 06-17-2023 CO2 [Moles/Vol] 26.0 mmol/L 21.0-32.0 [facility] Urea nitrogen/Creatinine [Mass ratio] 27.6 mg/mg 10-20 [facility] Laboratory - Hematology and Cell countsOrdered By: Mayda Garcia on 06-17-2023 MCH (RBC) [Entitic mass] 31.1 pg 27.0-32.0 [facility] MCHC (RBC) [Mass/Vol] 31.4 g/dL 32-36 [facility] Nucleated RBC/100 WBC (Bld) [Ratio] 0 % 0-5 [facility] Platelet mean volume (Bld) [Entitic vol] 11.2 fL 6.2-12.0 [facility] Platelets (Bld) [#/Vol] 184 10*3/uL 150-450 [facility] No Panel InformationOrdered By: Mayda Garcia on 06-17-2023 Estimated GFR (MDRD) Amer 87 mL/min >60 [facility] Comment on above: GFR Calc Estimated GFR (MDRD) Non-Af Amer 72 mL/min >60 [facility] Comment on above: Non- GFR Calc RBC Auto (Bld) [#/Vol]Ordere d By: Mayda Garcia on 06-17-2023 RBC (Bld) [#/Vol] 3.92 10*6/uL 4.2-5.4 [facility] Serum or plasma calcium olretta urement (mass/volume)Ordered By: Mayda Garcia on 06-17-2023 Calcium [Mass/Vol] 8.5 mg/dL 8.5-10.1 [facility] Serum or plasma creatinine m easurement (mass/volume)Ordered By: Mayda Garcia on 06-17-2023 Creatinine [Mass/Vol] 0.83 mg/dL 0.55-1.02 [facility] Comment on above: The validity of the calculated GFR & GFRAA in patients over 70 years has not been determined. Clinical correlation is essential. Serum or plasma urea nitroge n measurement (mass/volume)Ordered By: Mayda Garcia on 06-17-2023 Urea nitrogen [Mass/Vol] 23 mg/dL 7-18 [facility] Thin prep Papanicolaou smear with manual screeningOrdered By: Mayda Garcia on 06-17-2023 Thin prep Papanicolaou smear with manual screening 4 5-15 [facility] Whole blood hemoglobin A1c/t otal hemoglobin ratio (mass fraction)Ordered By: Mayda Garcia on 06-17-2023 HbA1c (Bld) [Mass fraction] 6.3 % 3.8-5.6 [facility] Comment on above: Normal < 5.7 % Predi abetic 5.7 - 6.4 % Diabetic >or= 6.5 % Please note range changes. Absolute lymphocyte countOrd ered By: Carlos Bravo on 02-18-2023 Lymphocytes Auto (Unsp spec) [#/Vol] 1.35 10*3/uL 0.83-4.51 [facility] Basophil percentageOrdered B y: Pepe Ruiz on 02-18-2023 Ammonia (P) [Moles/Vol] 42.0 umol/L - [facility] Basophil percentage 42.0 umol/L - [facility] Basophil percentageOrdered B y: Carlos Bravo on 02-18-2023 Basophil percentage 96 mg/dL 74-106 [facility] Basophil percentage 7.4 g/dL 6.4-8.2 [facility] Basophil percentage 0.30 mg/dL 0.20-1.00 [facility] Basophil percentage 141 mmol/L 136-145 [facility] Basophil percentage 3.6 mmol/L 3.5-5.1 [facility] Basophil percentage 108 mmol/L 98-107 [facility] Basophils (Bld) [#/Vol] 5.6 10*3/uL 4.4-11.0 [facility] Basophils (Bld) [#/Vol] 3.4 10*3/uL 2.0-7.7 [facility] Basophils/100 WBC (Bld) 60.8 % 47-70 [facility] Basophils/100 WBC (Bld) 6.3 % 0-5 [facility] Basophils/100 WBC (Bld) 0.4 % 0-1 [facility] Bilirubin [Mass/Vol] 0.30 mg/dL 0.20-1.[address] [facility] Comment on above: For patients on eltr ombopag therapy, use of Dimension Viola TBIL is not recommended. Chloride [Moles/Vol] 108 mmol/L 98-[address] [facility] Eosinophils/100 WBC (Bld) 6.3 % 0-5 [facility] Glucose [Mass/Vol] 96 mg/dL 74-106 [facility] Neutrophils (Bld) [#/Vol] 3.4 10*3/uL 2.0-7.7 [facility] Neutrophils/100 WBC (Bld) 60.8 % 47-70 [facility] Potassium [Moles/Vol] 3.6 mmol/L 3.5-5.1 [facility] Protein [Mass/Vol] 7.4 g/dL 6.4-8.2 [facility] Sodium [Moles/Vol] 141 mmol/L 136-145 [facility] WBC (Bld) [#/Vol] 5.6 10*3/uL 4.4-11.0 [facility] Blood erythrocytes count (nu mber/volume)Ordered By: Carlos Bravo on 02-18-2023 RBC (Bld) [#/Vol] 3.67 10*6/uL 4.2-5.4 [facility] Blood hemoglobin measurement (mass/volume)Ordered By: Carlos Bravo on 02-18-2023 Hemoglobin (Bld) [Mass/Vol] 11.2 g/dL 12.0-15.0 [facility] Blood lymphocytes/100 leukoc ytesOrdered By: Carlos Bravo on 02-18-2023 Lymphocytes/100 WBC (Bld) 24.1 % 19-41 [facility] Blood monocytes/100 leukocyt esOrdered By: Carlos Bravo on 02-18-2023 Monocytes/100 WBC (Bld) 8.2 % 0-10 [facility] Blood platelet mean volumeOr dered By: Carlos Bravo on 02-18-2023 Platelet mean volume (Bld) [Entitic vol] 10.9 fL 6.2-12.0 [facility] Determination of erythrocyte mean corpuscular volume (MCV)Ordered By: Carlos Bravo on 02-18-2023 MCV (RBC) [Entitic vol] 96.7 fL 81-99 [facility] Hematocrit Auto (Bld) [Volum e fraction]Ordered By: Carlos Bravo on 02-18-2023 Hematocrit (Bld) [Volume fraction] 35.5 % 37-47 [facility] Laboratory - Chemistry and C hemistry - challengeOrdered By: Carlos Bravo on 02-18-2023 ALP [Catalytic activity/Vol] 79 U/L 45-117 [facility] ALT [Catalytic activity/Vol] 13 U/L 13-56 [facility] CO2 [Moles/Vol] 24.0 mmol/L 21.0-32.0 [facility] Free T4 [Mass/Vol] 1.01 ng/dL 0.76-1.46 [facility] Globulin (S) [Mass/Vol] 4.8 g/dL 2.2-4.2 [facility] Natriuretic peptide B (Bld) [Mass/Vol] 26.8 pg/mL 0-100 [facility] Urea nitrogen/Creatinine [Mass ratio] 17.6 mg/mg 10-20 [facility] Laboratory - Hematology and Cell countsOrdered By: Carlos Bravo on 02-18-2023 Erythrocyte distribution width (RBC) [Entitic vol] 52.1 fL 35.1-43.9 [facility] Erythrocyte distribution width (RBC) [Ratio] 14.6 % 11.6-14.6 [facility] Immature granulocytes/100 WBC (Bld) 0.200 % 0.0-0.9 [facility] Comment on above: IG% - Immature Granu locytes (promyelocytes, myelocytes and metamyelocytes) > 1% indicates that a LEFT SHIFT is Present. MCH (RBC) [Entitic mass] 30.5 pg 27.0-32.0 [facility] Nucleated RBC/100 WBC (Bld) [Ratio] 0 % 0-5 [facility] MCHC Auto (RBC) [Mass/Vol]Or dered By: Carlos Bravo on 02-18-2023 MCHC (RBC) [Mass/Vol] 31.5 g/dL 32-36 [facility] No Panel InformationOrdered By: Carlos Bravo on 02-18-2023 Estimated GFR (MDRD) Amer 92 mL/min >60 [facility] Comment on above: GFR Calc Estimated GFR (MDRD) Non-Af Amer 76 mL/min >60 [facility] Comment on above: Non- GFR Calc Thyroid Stimulating Hormone (TSH) 3.45 uIU/mL 0.358-3.74 [facility] 30.5 pg 27.0-32.0 [facility] 14.6 % 11.6-14.6 [facility] 52.1 fl 35.1-43.9 [facility] 0.200 % 0.0-0.9 [facility] 0 % 0-5 [facility] 76 mL/min >60 [facility] 92 mL/min >60 [facility] 17.6 RATIO 10-20 [facility] 4.8 g/dL 2.2-4.2 [facility] 79 U/L 45-117 [facility] 13 U/L 13-56 [facility] 24.0 mmol/L 21.0-32.0 [facility] 3.45 uIU/mL 0.358-3.74 [facility] 26.8 pg/mL 0-100 [facility] 1.01 ng/dL 0.76-1.46 [facility] No Panel InformationOrdered By: Pepe Ruiz on 02-18-2023 Valproic Acid (Depakene) Level 103 ug/mL 50-100 [facility] Whole Blood Vitamin B1 Level 106.4 nmol/L 66.5-200.0 [facility] Comment on above: Performed at: [address] [id number] Director: Adamaris Shi MD, Phone: [phone] 103 ug/mL 50-100 [facility] 106.4 nmol/L 66.5-200.0 [facility] Platelets bldOrdered By: Aj Bravo on 02-18-2023 Platelets (Bld) [#/Vol] 251 10*3/uL 150-450 [facility] Serum or plasma albumin loretta urement (mass/volume)Ordered By: Carlos Bravo on 02-18-2023 Albumin [Mass/Vol] 2.6 g/dL 3.2-5.0 [facility] Serum or plasma albumin/glob ulin mass ratioOrdered By: Carlos Bravo on 02-18-2023 Albumin/Globulin [Mass ratio] 0.5 {ratio} 0.9-2.4 [facility] Serum or plasma calcium loretta urement (mass/volume)Ordered By: Carlos Bravo on 02-18-2023 Calcium [Mass/Vol] 8.7 mg/dL 8.5-10.1 [facility] Serum or plasma creatinine m easurement (mass/volume)Ordered By: Carlos Bravo on 02-18-2023 Creatinine [Mass/Vol] 0.80 mg/dL 0.55-1.02 [facility] Comment on above: The validity of the calculated GFR & GFRAA in patients over 70 years has not been determined. Clinical correlation is essential. Serum or plasma urea nitroge n measurement (mass/volume)Ordered By: Carlos Bravo on 02-18-2023 Urea nitrogen [Mass/Vol] 14 mg/dL 7-18 [facility] Thin prep Papanicolaou smear with manual screeningOrdered By: Carlos Bravo on 02-18-2023 Thin prep Papanicolaou smear with manual screening 11 U/L 15-37 [facility] Thin prep Papanicolaou smear with manual screening 9 5-15 [facility] Iron measurement (mass/mass) Ordered By: Mayda Garcia on 02-04-2023 Iron (Unsp spec) [Mass/Mass] 41 ug/dL 50-170 [facility] Laboratory - Chemistry and C hemistry - challengeOrdered By: Mayda Garcia on 02-04-2023 Cobalamin (Vitamin B12) [Mass/Vol] 262 pg/mL 211-911 [facility] No Panel InformationOrdered By: Mayda Garcia on 02-04-2023 Total Iron Binding Capacity 217 ug/dL 250-450 [facility] 262 pg/mL 211-911 [facility] 217 ug/dL 250-450 [facility] Serum or plasma ferritin kirill surement (mass/volume)Ordered By: Mayda Garcia on 02-04-2023 Ferritin [Mass/Vol] 364 ng/mL 8-252 [facility] Serum or plasma folate measu rement (mass/volume)Ordered By: Mayda Garcia on 02-04-2023 Folate [Mass/Vol] 17.40 ng/mL 3.1-55.4 [facility] Absolute lymphocyte countOrd ered By: Robbin Carlos on 01-26-2023 Lymphocytes Auto (Unsp spec) [#/Vol] 1.96 10*3/uL 0.83-4.51 [facility] Basophil percentageOrdered B y: Robbin Carlos on 01-26-2023 Basophil percentage 85 mg/dL 74-106 [facility] Basophil percentage 140 mmol/L 136-145 [facility] Basophil percentage 3.9 mmol/L 3.5-5.1 [facility] Basophil percentage 108 mmol/L 98-107 [facility] Basophils (Bld) [#/Vol] 4.8 10*3/uL 4.4-11.0 [facility] Basophils (Bld) [#/Vol] 2.2 10*3/uL 2.0-7.7 [facility] Basophils/100 WBC (Bld) 0.6 % 0-1 [facility] Basophils/100 WBC (Bld) 46.3 % 47-70 [facility] Basophils/100 WBC (Bld) 3.3 % 0-5 [facility] Chloride [Moles/Vol] 108 mmol/L 98-[address] [facility] Eosinophils/100 WBC (Bld) 3.3 % 0-5 [facility] Glucose [Mass/Vol] 85 mg/dL 74-106 [facility] Neutrophils (Bld) [#/Vol] 2.2 10*3/uL 2.0-7.7 [facility] Neutrophils/100 WBC (Bld) 46.3 % 47-70 [facility] Potassium [Moles/Vol] 3.9 mmol/L 3.5-5.1 [facility] Sodium [Moles/Vol] 140 mmol/L 136-145 [facility] WBC (Bld) [#/Vol] 4.8 10*3/uL 4.4-11.0 [facility] Blood erythrocytes count (nu mber/volume)Ordered By: Robbin Carlos on 01-26-2023 RBC (Bld) [#/Vol] 3.21 10*6/uL 4.2-5.4 [facility] Blood hemoglobin measurement (mass/volume)Ordered By: Robbin Carlos on 01-26-2023 Hemoglobin (Bld) [Mass/Vol] 9.9 g/dL 12.0-15.0 [facility] [facility] Blood lymphocytes/100 leukoc ytesOrdered By: Robbin Carlos on 01-26-2023 Lymphocytes/100 WBC (Bld) 41.0 % 19-41 [facility] Blood monocytes/100 leukocyt esOrdered By: Robbin Carlos on 01-26-2023 Monocytes/100 WBC (Bld) 8.4 % 0-10 [facility] Blood platelet mean volumeOr dered By: Robbin Carlos on 01-26-2023 Platelet mean volume (Bld) [Entitic vol] 11.4 fL 6.2-12.0 [facility] Determination of erythrocyte mean corpuscular volume (MCV)Ordered By: Robbin Carlos on 01-26-2023 MCV (RBC) [Entitic vol] 96.3 fL 81-99 [facility] Hematocrit Auto (Bld) [Volum e fraction]Ordered By: Robbin Carlos on 01-26-2023 Hematocrit (Bld) [Volume fraction] 30.9 % 37-47 [facility] Laboratory - Chemistry and C hemistry - challengeOrdered By: Robbin Carlos on 01-26-2023 CO2 [Moles/Vol] 27.0 mmol/L 21.0-32.0 [facility] Urea nitrogen/Creatinine [Mass ratio] 17.4 mg/mg 10-20 [facility] - Hematology and Cell countsOrdered By: Robbin Carlos on 01-26-2023 Erythrocyte distribution width (RBC) [Entitic vol] 51.8 fL 35.1-43.9 [facility] Erythrocyte distribution width (RBC) [Ratio] 14.6 % 11.6-14.6 [facility] Immature granulocytes/100 WBC (Bld) 0.400 % 0.0-0.9 [facility] Comment on above: IG% - Immature Granu locytes (promyelocytes, myelocytes and metamyelocytes) > 1% indicates that a LEFT SHIFT is Present. MCH (RBC) [Entitic mass] 30.8 pg 27.0-32.0 [facility] Nucleated RBC/100 WBC (Bld) [Ratio] 0 % 0-5 [facility] MCHC Auto (RBC) [Mass/Vol]Or dered By: Robbin Carlos on 01-26-2023 MCHC (RBC) [Mass/Vol] 32.0 g/dL 32-36 [facility] No Panel InformationOrdered By: Robbin Carlos on 01-26-2023 Estimated Creatinine Clearance Calc 41.40 ml/min [facility] Estimated GFR (MDRD) Amer 99 mL/min >60 [facility] Comment on above: GFR Calc Estimated GFR (MDRD) Non-Af Amer 82 mL/min >60 [facility] Comment on above: Non- GFR Calc 30.8 pg 27.0-32.0 [facility] 14.6 % 11.6-14.6 [facility] 51.8 fl 35.1-43.9 [facility] 0.400 % 0.0-0.9 [facility] 0 % 0-5 [facility] 82 mL/min >60 [facility] 99 mL/min >60 [facility] 41.40 ml/min [facility] 17.4 RATIO 10-20 [facility] 27.0 mmol/L 21.0-32.0 [facility] Platelets bldOrdered By: Robbin Carlos on 01-26-2023 Platelets (Bld) [#/Vol] 149 10*3/uL 150-450 [facility] Serum or plasma calcium loretta urement (mass/volume)Ordered By: Robbin Carlos on 01-26-2023 Calcium [Mass/Vol] 8.5 mg/dL 8.5-10.1 [facility] Serum or plasma creatinine m easurement (mass/volume)Ordered By: Robbin Carlos on 01-26-2023 Creatinine [Mass/Vol] 0.75 mg/dL 0.55-1.02 [facility] Comment on above: The validity of the calculated GFR & GFRAA in patients over 70 years has not been determined. Clinical correlation is essential. Serum or plasma urea nitroge n measurement (mass/volume)Ordered By: Robbin Carlos on 01-26-2023 Urea nitrogen [Mass/Vol] 13 mg/dL 7-18 [facility] Thin prep Papanicolaou smear with manual screeningOrdered By: Robbin Carlos 01-26-2023 Thin prep Papanicolaou smear with manual screening 5 5-15 [facility] Basophil percentageOrdered B y: Robbin Carlos on 01-22-2023 Basophil percentage 6.4 g/dL 6.4-8.2 [facility] Basophil percentage 0.20 mg/dL 0.20-1.00 [facility] Bilirubin [Mass/Vol] 0.20 mg/dL 0.20-1.[address] [facility] Comment on above: For patients on eltr ombopag therapy, use of Dimension Viola TBIL is not recommended. Protein [Mass/Vol] 6.4 g/dL 6.4-8.2 [facility] Laboratory - Chemistry and C hemistry - challengeOrdered By: Robbin Carlos on 01-22-2023 ALP [Catalytic activity/Vol] 102 U/L [facility] ALT [Catalytic activity/Vol] 28 U/L [facility] Globulin (S) [Mass/Vol] 3.9 g/dL 2.2-4.2 [facility] No Panel InformationOrdered By: Robbin Carlos on 01-22-2023 3.9 g/dL 2.2-4.2 [facility] 102 U/L [facility] 28 U/L [facility] Serum or plasma albumin loretta urement (mass/volume)Ordered By: Robbin Carlos on 01-22-2023 Albumin [Mass/Vol] 2.5 g/dL 3.2-5.0 [facility] Serum or plasma albumin/glob ulin mass ratioOrdered By: Robbin Carlos on 01-22-2023 Albumin/Globulin [Mass ratio] 0.6 {ratio} 0.9-2.4 [facility] Thin prep Papanicolaou smear with manual screeningOrdered By: Robbin Carlos on 01-22-2023 Thin prep Papanicolaou smear with manual screening 26 U/L [facility] Whole blood hemoglobin A1c/t otal hemoglobin ratio (mass fraction)Ordered By: Robbin Carlos on 01-22-2023 HbA1c (Bld) [Mass fraction] 6.4 % 3.8-5.6 [facility] Comment on above: Normal < 5.7 % Predi abetic 5.7 - 6.4 % Diabetic >or= 6.5 % Please note range changes. SARS-CoV-2 (COVID-19) Ag IA. rapid Ql (Resp)Ordered By: Robbin Carlos on 01-21-2023 COVID-19 virus antigen assay SARS-CoV-2 (COVID 19) [facility] SARS-CoV-2 Antigen (Rapid) SARS-CoV-2 (COVID 19) [facility] COVID-19 virus antigen assay SARS-CoV-2 (COVID 19) [facility] Glucose Glucometer (BldC) [M ass/Vol]Ordered By: Robbin Carlos on 01-18-2023 Glucose [Mass/Vol] 72 mg/dL 74-106 [facility] Comment on above: MANAGEMENT OF PATIEN T CARE PER NURSING PROTOCOL POCT glucose meteron 023 Glucose [Mass/Vol] 98 mg/dL 70 - 100 mg/dL [facility] Interpretation and review of laboratory results Normal [facility] Performed by: [facility], [address] [place] [address] CLIA ID: [id number] [facility] [employer] [facility] [employer] POCT glucose meteron 023 Glucose [Mass/Vol] 98 mg/dL 70 - 100 mg/dL [facility] Interpretation and review of laboratory results Normal [facility] Performed by: [facility], [address] [place] [id number] CLIA ID: [id number] [facility] [employer] [facility] POCT glucose meteron 023 Glucose [Mass/Vol] 157 mg/dL High 70 - 100 mg/dL [facility] Interpretation and review of laboratory results Abnormal [facility] Performed by: [facility], [address] [place] [address] CLIA ID: [id number] [facility] [employer] [facility] Glucose [Mass/Vol] 113 mg/dL High 70 - 100 mg/dL [facility] [employer] Interpretation and review of laboratory results Abnormal [facility] Performed by: [facility], [address] [place] [id number] CLIA ID: [id number] [facility] [employer] [facility] [employer] XR Chest Single viewon 01-08 Patient Name: [...] Electronically Signed Date/Time: 01/08/2023 7:43 AM EDT [facility] Gómez Calvert MD [...] Electronically Signed Date/Time: 01/08/2023 7:43 AM EDT [facility] Radiology Study observation (narrative) [facility] [employer] Basic metabolic 1998 panelon 01-07-2023 Anion gap [Moles/Vol] 9 mmol/L 3 - 13 mmol/L [facility] [employer] Calcium [Mass/Vol] 8.5 mg/dL 8.4 - 10. 4 mg/dL [facility] [employer] Chloride [Moles/Vol] 101 mmol/L 98 - 10 7 mmol/L [facility] CO2 [Moles/Vol] 27 mmol/L 22 - 30 mmol/L [facility] Creatinine [Mass/Vol] 0.91 mg/dL 0.52 - 1.04 mg/dL [facility] GFR/1.73 sq M.predicted MDRD (S/P/Bld) [Vol rate/Area] 68.0 mL/min/{1.73_m2} - PINF [facility] Comment on above: Calculation based on the Chronic Kidney Disease Epidemiology Collaboration (CKD-EPI) equation refit without adjustment for race Glucose [Mass/Vol] 83 mg/dL 70 - 100 mg/dL [facility] Potassium [Moles/Vol] 4.2 mmol/L 3.5 - 5.1 mmol/L [facility] Sodium [Moles/Vol] 137 mmol/L 135 - 145 mmol/L [facility] Urea nitrogen [Mass/Vol] 30 mg/dL High 7 - 17 mg/dL [facility] CBC panel Auto (Bld)Ordered By: Ekaterina Fountain on 01-07-2023 Erythrocyte distribution width (RBC) [Ratio] 15.8 % High 11.5 - 14.5 % [facility] Hematocrit (Bld) [Volume fraction] 30.0 % Low 35.0 - 47.0 % [facility] Hemoglobin (Bld) [Mass/Vol] 10.3 g/dL Low 11.7 - 16.0 g/dL [facility] Interpretation and review of laboratory results Abnormal [facility] MCH (RBC) [Entitic mass] 32.0 pg 26.0 - 34.0 pg [facility] MCHC (RBC) [Mass/Vol] 34.2 % 32.0 - 36.0 % [facility] MCV (RBC) [Entitic vol] 93.7 fL 80.0 - 98.0 fL [facility] Platelet mean volume (Bld) [Entitic vol] 9.1 fL 7.4 - 12.4 fL [facility] Platelets (Bld) [#/Vol] 162 10*3/uL 140 - 440 10*3/uL [facility] RBC (Bld) [#/Vol] 3.21 10*6/uL Low 3.8 - 5.20 10*6/uL [facility] WBC (Bld) [#/Vol] 5.4 10*3/uL 3.6 - 10.7 10*3/uL [facility] Magnesiumon 01-07-2023 Magnesium [Mass/Vol] 2.4 mg/dL High 1.6 - 2 .3 mg/dL [employer] No Panel Informationon 01-07 Interpretation and review of laboratory results Abnormal [facility] POCT glucose meteron 023 Glucose [Mass/Vol] 102 mg/dL High 70 - 100 mg/dL [facility] [employer] Interpretation and review of laboratory results Abnormal [employer] Performed by: [facility] [employer] [facility], [address] [place] [address] CLIA ID: [id number] [facility] [employer] Glucose [Mass/Vol] 118 mg/dL High 70 - 100 mg/dL [facility] [employer] Interpretation and review of laboratory results Abnormal [employer] Performed by: [facility], [address] [place] [address] CLIA ID: [id number] [facility] Glucose [Mass/Vol] 124 mg/dL High 70 - 100 mg/dL [facility] [employer] Interpretation and review of laboratory results Abnormal [employer] Performed by: [employer] [facility], [address] [place] [address] CLIA ID: [id number] [facility] [employer] [facility] Noteon 01-07-2023 Progress Note Department of Lead Performance Support Analyst al Medicine Division of Endocrinology, Diabetes, & Metabolism Endocrinology Note Patient Name: Lacy Alvarado : 1950 AGE: 72 y.o. Room[facility]Bed: [facility] A Admission Date: 01/01/2023 Visit Date: 01/07/2023 Reason for Endocrine Consult: post op heart Provider/Team Requesting Consult: cts PCP: MAYDA Marspt [employer] Specialist: No ASSESSMENT: DM 2 with hyperglycemia without long term care phlebotomist insulin Stress hyperglycemia CAD s/p Cabgx4 PLAN: [...] Oral, Daily (more content not included)... [facility] Progress Note Physical Therapy Facility/Department: [facility] Physical Therapy Daily Treatment Note NAME: Lacy Alvarado : 1950 Date of Service: 01/07/2023 Discharge Recommendations: IP Rehab, Prison Facility PT Equipment Recommendations Equipment Needed: No [...] The primary encounter diagnosis was CAD in [place] artery. A diagnosis of Coronary artery disease involving coronary bypass graft, unspecified whether angina present, unspecified whether [place] or transplanted heart was also pertinent to this visit. has a past medical history of CHF (congestive heart failure) (CMS/HCC) ([facility]), Diabetes mellitus ([facility]), GERD (gastroesophageal reflux disease), Hyperlipidemia, Hypertension, RA (rheumatoid arthritis) ([facility]), Seizure ([facility]), Seizures ([facility]), and Sleep apnea. has a past [...] / Caregiver Present: No Diagnosis: CAD in [place] artery s/p CABG on 01/01 Follows Commands: [...] for pur (more content not included)... [facility] XR CHEST 1 VIEWon 01-07-2023 XR CHEST [...] Electronically Signed Date/Time: 01/07/2023 7:57 AM EDT [facility] XR Chest Single viewon 01-07 Impression: As above. Report Dictated on Electronically Signed By: Nely Pierce MD Electronically Signed Date/Time: 01/07/2023 7:57 AM EDT [facility] Patient Name: LACY SAVAGE : 1950 Exam Date/Time: 01/07/2023 05:18 Procedure: XR CHEST 1 VIEW Ordering Provider: WEAVER JENNIFER Reason For Exam: Shortness of breath Examination: Portable chest Indication: Shortness of breath Comparison: Previous day Findings: The cardiac silhouette is enlarged with median sternotomy changes. Suspect small pleural effusions. No gross consolidation or sizable infiltrate noted. No sizable pneumothorax. [facility] Nely Pierce MD - 01/07/2023 Patient Name: [...] Electronically Signed Date/Time: 01/07/2023 7:57 AM EDT [facility] Radiology Study observation (narrative) [facility] XR Chest Single viewOrdered By: Nely Pierce on 01-07-2023 [facility] Work Phone: Basic metabolic 1998 panelon 01-06-2023 Anion gap [Moles/Vol] 11 mmol/L 3 - 13 mmol/L [facility] Calcium [Mass/Vol] 8.6 mg/dL 8.4 - 10. 4 mg/dL [facility] Chloride [Moles/Vol] 98 mmol/L 98 - 10 7 mmol/L [facility] CO2 [Moles/Vol] 27 mmol/L 22 - 30 mmol/L [facility] Creatinine [Mass/Vol] 0.99 mg/dL 0.52 - 1.04 mg/dL [facility] GFR/1.73 sq M.predicted MDRD (S/P/Bld) [Vol rate/Area] 61.5 mL/min/{1.73_m2} - [facility] Comment on above: Calculation based on the Chronic Kidney Disease Epidemiology Collaboration (CKD-EPI) equation refit without adjustment for race Glucose [Mass/Vol] 95 mg/dL 70 - 100 mg/dL [facility] Potassium [Moles/Vol] 3.9 mmol/L 3.5 - 5.1 mmol/L [facility] Sodium [Moles/Vol] 136 mmol/L 135 - 145 mmol/L [facility] Urea nitrogen [Mass/Vol] 39 mg/dL High 7 - 17 mg/dL [facility] CARECOORDon 01-06-2023 [facility] too functional. Updated patient at bedside and alyssa Holloway (HCPOA) over the phone. Declined SNF at this time, would like to plan discharge home with HHC including PT/OT/SN/REGION MANAGER if possible. Will updated PEDROZA PACC, CTS PRODUCTIVITY ENGINEER aware. Normal [facility] CBC panel Auto (Bld)Ordered By: Farhat Curtis on 01-06-2023 Erythrocyte distribution width (RBC) [Ratio] 16.2 % High 11.5 - 14.5 % [facility] Hematocrit (Bld) [Volume fraction] 30.7 % Low 35.0 - 47.0 % [facility] Hemoglobin (Bld) [Mass/Vol] 10.2 g/dL Low 11.7 - 16.0 g/dL [facility] Interpretation and review of laboratory results Abnormal [facility] MCH (RBC) [Entitic mass] 31.7 pg 26.0 - 34.0 pg [facility] [employer] MCHC (RBC) [Mass/Vol] 33.3 % 32.0 - 36.0 % [facility] MCV (RBC) [Entitic vol] 95.3 fL 80.0 - 98.0 fL [facility] [employer] Platelet mean volume (Bld) [Entitic vol] 9.2 fL 7.4 - 12.4 fL [facility] [employer] Platelets (Bld) [#/Vol] 141 10*3/uL 140 - 440 10*3/uL [facility] RBC (Bld) [#/Vol] 3.22 10*6/uL Low 3.8 - 5.20 10*6/uL [facility] [employer] WBC (Bld) [#/Vol] 5.6 10*3/uL 3.6 - 10.7 10*3/uL [facility] [employer] Magnesiumon 01-06-2023 Magnesium [Mass/Vol] 2.7 mg/dL High 1.6 - 2 .3 mg/dL [facility] [employer] No Panel Informationon 01-06 Interpretation and review of laboratory results Abnormal [facility] [employer] POCT glucose meteron 023 Glucose [Mass/Vol] 106 mg/dL High 70 - 100 mg/dL [facility] Interpretation and review of laboratory results Abnormal [facility] [employer] Performed by: [facility], [address] [place] [address] CLIA ID: [id number] [facility] [employer] [facility] Glucose [Mass/Vol] 97 mg/dL 70 - 100 mg/dL [facility] Interpretation and review of laboratory results Normal [facility] Performed by: [facility] [employer] [facility], [address] [place] [address] CLIA ID: [id number] [facility] Glucose [Mass/Vol] 109 mg/dL High 70 - 100 mg/dL [facility] Interpretation and review of laboratory results Abnormal [facility] Performed by: [facility] [employer] [facility], [address] [place] [address] CLIA ID: [id number] [facility] [employer] [facility] Progress Noteon 01-06-2023 Progress Note Occupational [...] The primary encounter diagnosis was CAD in [place] artery. A diagnosis of Coronary artery disease involving coronary bypass graft, unspecified whether angina present, unspecified whether [place] or transplanted heart was also pertinent to this visit. has a past medical history of CHF (congestive heart failure) (CMS/HCC) (HCC), Diabetes mellitus (HCC), GERD (gastroesophageal reflux disease), Hyperlipidemia, Hypertension, RA (rheumatoid arthritis) ([facility]), Seizure (HCC), Seizures (HCC), and Sleep [...] Activity Raw Score (more content not included)... [facility] Progress Note Physical Therapy Facility/Department: [facility] Physical Therapy Daily Treatment Note NAME: [...] The primary encounter diagnosis was CAD in [place] artery. A diagnosis of Coronary artery disease involving coronary bypass graft, unspecified whether angina present, unspecified whether [place] or transplanted heart was also pertinent to this visit. has a past medical history of CHF (congestive heart failure) (CMS/HCC) ([facility]), Diabetes mellitus (HCC), GERD (gastroesophageal reflux [...] / Caregiver Present: No Diagnosis: CAD in [place] artery s/p CABG on 01/01 Follows Commands: [...] Restraints Init (more content not included)... [facility] Progress Note ---- -------- Attestation signed by [...] Milian. Patient was admitted on 12/18/22 to [facility] with CP history of CHF, CAD, DM [...] []Yes [x] N (more content not included)... [facility] XR CHEST 1 VIEWon 01-06-2023 XR [...] Signed Date/Time: 01/06/2023 9:27 AM EDT [facility] XR Chest Single viewon 01-06 Layering right effus ion. Atelectasis of the left base. Report Dictated on Electronically Signed By: Eyad Cohen DO Electronically Signed Date/Time: 01/06/2023 9:27 AM T [facility] Patient Name: LACY SAVAGE : 1950 Exam [...] patient has undergone prior open heart surgery. [facility] Eyad Cohen DO - 01/06/2023 [facility] Name[facility]AD[facility] 1950 [id number] Exam Date/Time: 01/06/2023 05:16 Procedure: XR CHEST [...] Electronically Signed Date/Time: 01/06/2023 9:27 AM EDT [employer] Radiology Study observation (narrative) [employer] XR Chest Single viewOrdered By: Eyad Cohen on 01-06-2023 [employer] Work Phone: Basic metabolic 1998 panelon 01-05-2023 Anion gap [Moles/Vol] 11 mmol/L 3 - 13 mmol/L [employer] Calcium [Mass/Vol] 8.5 mg/dL 8.4 - 10. 4 mg/dL [employer] Chloride [Moles/Vol] 98 mmol/L 98 - 10 7 mmol/L [employer] CO2 [Moles/Vol] 27 mmol/L 22 - 30 mmol/L [employer] Creatinine [Mass/Vol] 1.25 mg/dL High 0.52 - 1.04 mg/dL [facility] GFR/1.73 sq M.predicted MDRD (S/P/Bld) [Vol rate/Area] 46.5 mL/min/{1.73_m2} Low - PINF [facility] Comment on above: Calculation based on the Chronic Kidney Disease Epidemiology Collaboration (CKD-EPI) equation refit without adjustment for race Glucose [Mass/Vol] 98 mg/dL 70 - 100 mg/dL [facility] Potassium [Moles/Vol] 3.8 mmol/L 3.5 - 5.1 mmol/L [facility] Sodium [Moles/Vol] 137 mmol/L 135 - 145 mmol/L [facility] Urea nitrogen [Mass/Vol] 43 mg/dL High 7 - 17 mg/dL [facility] CBC panel Auto (Bld)on 01-05 Erythrocyte distribution width (RBC) [Ratio] 16.0 % High 11.5 - 14.5 % [facility] Hematocrit (Bld) [Volume fraction] 28.7 % Low 35.0 - 47.0 % [facility] Hemoglobin (Bld) [Mass/Vol] 9.9 g/dL Low 11.7 - 16.0 g/dL [facility] Interpretation and review of laboratory results Abnormal [facility] MCH (RBC) [Entitic mass] 32.1 pg 26.0 - 34.0 pg [facility] MCHC (RBC) [Mass/Vol] 34.3 % 32.0 - 36.0 % [facility] MCV (RBC) [Entitic vol] 93.5 fL 80.0 - 98.0 fL [facility] Platelet mean volume (Bld) [Entitic vol] 9.9 fL 7.4 - 12.4 fL [facility] Platelets (Bld) [#/Vol] 114 10*3/uL Low 140 - 440 10*3/uL [facility] RBC (Bld) [#/Vol] 3.07 10*6/uL Low 3.8 - 5.20 10*6/uL [facility] WBC (Bld) [#/Vol] 6.7 10*3/uL 3.6 - 10.7 10*3/uL [facility] Magnesiumon 01-05-2023 Magnesium [Mass/Vol] 2.8 mg/dL High 1.6 - 2 .3 mg/dL [facility] No Panel Informationon 01-05 Interpretation and review of laboratory results Abnormal [employer] Blood Expiration Date [id number] [facility] [employer] Crossmatch interpretation COMP [employer] Dispense Status Released from [email or web address] Product Blood Type 5100 [employer] PRODUCT CODE [id number] [facility] [employer] Unit ABO O [facility] [employer] Unit RH Positive [facility] Unit Volume 300 mL [facility] [employer] POCT glucose meteron 023 Glucose [Mass/Vol] 105 mg/dL High 70 - 100 mg/dL [facility] [employer] Interpretation and review of laboratory results Abnormal [facility] [employer] Performed by: [employer] [facility], [address] [place] [id number] CLIA ID: [id number] [facility] [employer] [facility] Glucose [Mass/Vol] 110 mg/dL High 70 - 100 mg/dL [facility] [employer] Interpretation and review of laboratory results Abnormal [facility] [employer] Performed by: [facility], [address] [place] [address] CLIA ID: [id number] [facility] [employer] [facility] [employer] Prepare RBC: 2 Unitson 01-05 Unit Number [id number] [facility] [facility] [employer] Unit Number [id number] [facility] Progress Noteon 01-05-2023 Progress Note Department of Lead Performance Support Analyst al Medicine Division of Endocrinology, Diabetes, & Metabolism Endocrinology Note Patient Name: Lacy Alvarado : 1950 AGE: 72 y.o. Room/Bed: [facility]/[address] Admission Date: 01/01/2023 Visit Date: 01/05/2023 Reason for Endocrine Consult: post op heart Provider/Team Requesting Consult: cts PCP: MAYDA Esposito [employer] Specialist: No ASSESSMENT: DM 2 with hyperglycemia without mcfp insulin Stress hyperglycemia CAD s/p Cabgx4 PLAN: [...] polyethylene gly (more content not included)... [facility] Progress Note ---- -------- Attestation signed by [...] PIV GOC/Family Discussions: Full code -------- Cardiothoracic Surgery/[facility] Progress Note PATIENT NAME: Lacy Alvarado DATE: 01/05/23 HPI: Lacy Alvarado is a 72 y.o. female was referred to us by Dr. Bhanu Milian. Patient was admitted on 12/18/22 to [facility] with CP history of CHF, CAD, DM [...] lasix today. (more content not included)... [facility] XR CHEST 1 VIEWon 01-05-2023 XR CHEST [...] Electronically Signed Date/Time: 01/05/2023 5:37 AM EDT [facility] XR Chest Single viewon 01-05 See findings. Report Dictated on Electronically Signed By: Jake Vasquez MD Electronically Signed Date/Time: 01/05/2023 5:37 AM EDT [facility] 1950 [id number] Exam Date/Time: 01/05/2023 05:19 Procedure: XR CHEST [...] unremarkable. Bones: No acute osseous process identified. [facility] Jake Vasquez MD - 01/05/2023 Patient Name: LACY ALVARADO : 1950 [id number] Exam Date/Time: 01/05/2023 05:19 Procedure: XR CHEST [...] Electronically Signed Date/Time: 01/05/2023 5:37 AM EDT [employer] Radiology Study observation (narrative) [employer] XR Chest Single viewOrdered By: Jake Vasquez on 01-05-2023 [employer] Work Phone: Basic metabolic 1998 panelon 01-04-2023 Anion gap [Moles/Vol] 8 mmol/L 3 - 13 mmol/L [employer] Calcium [Mass/Vol] 8.5 mg/dL 8.4 - 10. 4 mg/dL [employer] Chloride [Moles/Vol] 100 mmol/L 98 - 10 7 mmol/L [employer] CO2 [Moles/Vol] 26 mmol/L 22 - 30 mmol/L [employer] Creatinine [Mass/Vol] 1.11 mg/dL High 0.52 - 1.04 mg/dL [employer] GFR/1.73 sq M.predicted MDRD (S/P/Bld) [Vol rate/Area] 53.6 mL/min/{1.73_m2} Low - PINF [employer] Comment on above: Calculation based on the Chronic Kidney Disease Epidemiology Collaboration (CKD-EPI) equation refit without adjustment for race Glucose [Mass/Vol] 97 mg/dL 70 - 100 mg/dL [facility] Potassium [Moles/Vol] 3.9 mmol/L 3.5 - 5.1 mmol/L [facility] Sodium [Moles/Vol] 135 mmol/L 135 - 145 mmol/L [facility] Urea nitrogen [Mass/Vol] 34 mg/dL High 7 - 17 mg/dL [facility] CBC panel Auto (Bld)Ordered By: Thien Sinha on 01-04-2023 Erythrocyte distribution width (RBC) [Ratio] 16.0 % High 11.5 - 14.5 % [facility] Hematocrit (Bld) [Volume fraction] 29.0 % Low 35.0 - 47.0 % [facility] Hemoglobin (Bld) [Mass/Vol] 9.9 g/dL Low 11.7 - 16.0 g/dL [facility] Interpretation and review of laboratory results Abnormal [facility] MCH (RBC) [Entitic mass] 31.9 pg 26.0 - 34.0 pg [facility] MCHC (RBC) [Mass/Vol] 34.1 % 32.0 - 36.0 % [facility] MCV (RBC) [Entitic vol] 93.4 fL 80.0 - 98.0 fL [facility] Platelet mean volume (Bld) [Entitic vol] 9.2 fL 7.4 - 12.4 fL [facility] Platelets (Bld) [#/Vol] 87 10*3/uL Low 140 - 440 10*3/uL [facility] RBC (Bld) [#/Vol] 3.10 10*6/uL Low 3.8 - 5.20 10*6/uL [facility] WBC (Bld) [#/Vol] 7.9 10*3/uL 3.6 - 10.7 10*3/uL [facility] Magnesiumon 01-04-2023 Magnesium [Mass/Vol] 2.6 mg/dL High 1.6 - 2 .3 mg/dL [facility] No Panel Informationon 01-04 Interpretation and review of laboratory results Abnormal [facility] POCT glucose meteron 023 Glucose [Mass/Vol] 116 mg/dL High 70 - 100 mg/dL [facility] Interpretation and review of laboratory results Abnormal [facility] Performed by: [facility], [address] [facility] [address] CLIA ID: [id number] [facility] Glucose [Mass/Vol] 119 mg/dL High 70 - 100 mg/dL [facility] Interpretation and review of laboratory results Abnormal [facility] Performed by: [facility], [address] [facility] [address] CLIA ID: [id number] [facility] Glucose [Mass/Vol] 122 mg/dL High 70 - 100 mg/dL [facility] Interpretation and review of laboratory results Abnormal [facility]formed by: [facility], [address] [place] [address] CLIA ID: [id number] [facility] Progress Noteon 01-04-2023 Progress Note Cardiothoracic Surge [...] observe for. Will continue to monitor. Normal [facility] Progress Note Physical Therapy Facility/Department: [...] her apartment. Currently, recommend IP Rehab at [facility]. Performance Deficits/Impairments: Decreased functional mobility , Decreased endurance, Increased pain, Decreased ADL status, Decreased strength, Decreased posture, Decreased balance Decision Making: Medium Complexity Patient Diagnosis(es): The primary encounter diagnosis was CAD in [place] artery. A diagnosis of Coronary artery disease involving coronary bypass graft, unspecified whether angina present, unspecified whether [place] or transplanted heart was also pertinent to this visit. has a past medical history of CHF (congestive heart failure) (CMS/HCC) ([facility]), Diabetes mellitus ([facility]), GERD (gastroesophageal reflux disease), Hyperlipidemia, Hypertension, RA (rheumatoid arthritis) ([facility]), Seizure ([facility]), Seizures ([facility]), and Sleep apnea. has a past [...] / Caregiver Present: No Diagnosis: CAD in [place] artery s/p CABG on 01/01 Follows Commands: [...] Start: 01/02/23 (more content not included)... [facility] Progress Note Department of Lead Performance Support Analyst al Medicine Division of Endocrinology, Diabetes, & Metabolism Endocrinology Note Patient Name: Lacy Alvarado : 1950 AGE: 72 y.o. Room/Bed: T1-103/T1-103 A Admission Date: 01/01/2023 Visit Date: 01/04/2023 Reason for Endocrine Consult: post op heart Provider/Team Requesting Consult: cts PCP: MAYDA GACRIA [employer] Specialist: No ASSESSMENT: DM 2 with hyperglycemia without long term care phlebotomist insulin Stress hyperglycemia CAD s/p Cabgx4 PLAN: [...] 0-6 Units, SubCUTAneo (more content not included)... [facility] XR CHEST 1 VIEWon 01-04-2023 XR CHEST 1 VIEW Patient Name: [facility]ACY [facility]AVAGE [facility] 1950 [id number] Exam Date/Time: 01/04/2023 05:18 Procedure: XR CHEST [...] Signed Date/Time: 01/04/2023 7:18 AM EDT [facility] XR Chest Single viewon 01-04 No significant change when compared with the previous study. Report Dictated on Electronically Signed By: Dino Jurado MD Electronically Signed Date/Time: 01/04/2023 7:18 AM EDT [facility] Patient Name: LACY SAVAGE : [...] There are degenerative changes of the spine. [facility] Dino Jurado MD - 01/04/2023 Patient [...] Electronically Signed Date/Time: 01/04/2023 7:18 AM EDT [facility] Radiology Study observation (narrative) [facility] Basic metabolic 1998 panelon 01-03-2023 Anion gap [Moles/Vol] 7 mmol/L 3 - 13 mmol/L [facility] Calcium [Mass/Vol] 8.5 mg/dL 8.4 - 10. 4 mg/dL [facility] Chloride [Moles/Vol] 103 mmol/L 98 - 10 7 mmol/L [facility] CO2 [Moles/Vol] 25 mmol/L 22 - 30 mmol/L [facility] Creatinine [Mass/Vol] 0.80 mg/dL 0.52 - 1.04 mg/dL [facility] GFR/1.73 sq M.predicted MDRD (S/P/Bld) [Vol rate/Area] 79.4 mL/min/{1.73_m2} - PINF [facility] Comment on above: Calculation based on the Chronic Kidney Disease Epidemiology Collaboration (CKD-EPI) equation refit without adjustment for race Glucose [Mass/Vol] 113 mg/dL High 70 - 100 mg/dL [facility] Interpretation and review of laboratory results Abnormal [facility] Potassium [Moles/Vol] 4.4 mmol/L 3.5 - 5.1 mmol/L [facility] Sodium [Moles/Vol] 136 mmol/L 135 - 145 mmol/L [facility] Urea nitrogen [Mass/Vol] 23 mg/dL High 7 - 17 mg/dL [facility] CBC panel Auto (Bld)Ordered By: Iogr Gar on 01-03-2023 Erythrocyte distribution width (RBC) [Ratio] 16.7 % High 11.5 - 14.5 % [facility] Hematocrit (Bld) [Volume fraction] 29.5 % Low 35.0 - 47.0 % [facility] Hemoglobin (Bld) [Mass/Vol] 10.1 g/dL Low 11.7 - 16.0 g/dL [facility] Interpretation and review of laboratory results Abnormal [facility] MCH (RBC) [Entitic mass] 31.8 pg 26.0 - 34.0 pg [facility] MCHC (RBC) [Mass/Vol] 34.1 % 32.0 - 36.0 % [facility] MCV (RBC) [Entitic vol] 93.3 fL 80.0 - 98.0 fL [facility] Platelet mean volume (Bld) [Entitic vol] 9.1 fL 7.4 - 12.4 fL [facility] Platelets (Bld) [#/Vol] 82 10*3/uL Low 140 - 440 10*3/uL [facility] RBC (Bld) [#/Vol] 3.16 10*6/uL Low 3.8 - 5.20 10*6/uL [facility] WBC (Bld) [#/Vol] 8.6 10*3/uL 3.6 - 10.7 10*3/uL [facility] IDNon 01-03-2023 IDN Problem: Knowledge [...] Goal: Assess Nutritional Intake Outcome: Progressing Normal [facility] Magnesiumon 01-03-2023 Magnesium [Mass/Vol] 2.3 mg/dL 1.6 - 2 .3 mg/dL [facility] Magnesium [Mass/Vol]on 01-03 Interpretation and review of laboratory results Normal [facility] No Panel Informationon 01-03 [facility] POCT glucose meteron 023 Glucose [Mass/Vol] 150 mg/dL High 70 - 100 mg/dL [facility] Interpretation and review of laboratory results Abnormal [facility] Performed by: [facility], [address] [place] [address] CLIA ID: [id number] [facility] Glucose [Mass/Vol] 135 mg/dL High 70 - 100 mg/dL [facility] Interpretation and review of laboratory results Abnormal [facility] Performed by: [facility], [address] [place] [address] CLIA ID: [id number] [facility] Glucose [Mass/Vol] 133 mg/dL High 70 - 100 mg/dL [facility] Interpretation and review of laboratory results Abnormal [facility] Performed by: [facility], [address] [place] [address] CLIA ID: [id number] [facility] PROTIME/INR & PTTon 01-04-20 23 aPTT Coag (PPP) [Time] 31.7 s High 20.0 - 30.5 s [facility] [employer] INR Coag (PPP) [Relative time] 1.1 {INR} 0.9 - 1.1 [facility] [employer] Comment on above: Recommended Anticoag ulant Therapy: [...] review of laboratory results Abnormal [facility] PT Coag (Bld) [Time] 11.6 s 9.0 - 12.0 s [facility] [employer] Progress Noteon 01-03-2023 Progress Note Department of Lead Performance Support Analyst al Medicine Division of Endocrinology, Diabetes, & Metabolism Endocrinology Note Patient Name: Lacy Alvarado : 1950 AGE: 72 y.o. Room/Bed: T1-103/T1-103 A Admission Date: 01/01/2023 Visit Date: 01/03/2023 Reason for Endocrine Consult: post op heart Provider/Team Requesting Consult: edwin PCP: MAYDA GARCIA [employer] Specialist: No ASSESSMENT: DM 2 with hyperglycemia without mcfp insulin Stress hyperglycemia CAD s/p Cabgx4 PLAN: [...] Daily magn (more content not included)... [facility] XR CHEST 1 VIEWon 01-03-2023 XR CHEST [...] Electronically Signed Date/Time: 01/03/2023 10:16 AM EDT [facility] XR Chest Single viewon 01-03 No significant change when compared with the previous study. Report Dictated on Electronically Signed By: Dino Jurado MD Electronically Signed Date/Time: 01/03/2023 10:16 AM EDT [facility] Patient Name: LACY SAVAGE : [...] There are degenerative changes of the spine. [facility] Dino Jurado MD - 01/03/2023 Patient Name: LACY ALVARADO : 1950 [facility]#: [id number] Exam Date/Time: 01/03/2023 05:54 Procedure: XR CHEST [...] Electronically Signed Date/Time: 01/03/2023 10:16 AM EDT [facility] Radiology Study observation (narrative) [facility] XR Chest Single viewOrdered By: Dino Jurado on 01-03-2023 [facility] [employer] Work Phone: [phone] 01-02-2023 [id number] [employer] following case for Discharge Needs. Normal [facility] Basic metabolic 1998 panelon 01-02-2023 Anion gap [Moles/Vol] 10 mmol/L 3 - 13 mmol/L [facility] Calcium [Mass/Vol] 8.7 mg/dL 8.4 - 10. 4 mg/dL [facility] Chloride [Moles/Vol] 107 mmol/L 98 - 10 7 mmol/L [facility] CO2 [Moles/Vol] 23 mmol/L 22 - 30 mmol/L [facility] Creatinine [Mass/Vol] 0.99 mg/dL 0.52 - 1.04 mg/dL [facility] GFR/1.73 sq M.predicted MDRD (S/P/Bld) [Vol rate/Area] 61.5 mL/min/{1.73_m2} - [facility] Comment on above: Calculation based on the Chronic Kidney Disease Epidemiology Collaboration (CKD-EPI) equation refit without adjustment for race Glucose [Mass/Vol] 104 mg/dL High 70 - 100 mg/dL [facility] Interpretation and review of laboratory results Abnormal [facility] Potassium [Moles/Vol] 4.5 mmol/L 3.5 - 5.1 mmol/L [facility] Sodium [Moles/Vol] 140 mmol/L 135 - 145 mmol/L [facility] Urea nitrogen [Mass/Vol] 20 mg/dL High 7 - 17 mg/dL [facility] Anion gap [Moles/Vol] 13 mmol/L 3 - 13 mmol/L [facility] Calcium [Mass/Vol] 8.3 mg/dL Low 8.4 - 10. 4 mg/dL [facility] Chloride [Moles/Vol] 107 mmol/L 98 - 10 7 mmol/L [facility] CO2 [Moles/Vol] 21 mmol/L Low 22 - 30 mmol/L [facility] Creatinine [Mass/Vol] 0.86 mg/dL 0.52 - 1.04 mg/dL [facility] GFR/1.73 sq M.predicted MDRD (S/P/Bld) [Vol rate/Area] 72.8 mL/min/{1.73_m2} - [facility] Comment on above: Calculation based on the Chronic Kidney Disease Epidemiology Collaboration (CKD-EPI) equation refit without adjustment for race Glucose [Mass/Vol] 134 mg/dL High 70 - 100 mg/dL [facility] Interpretation and review of laboratory results Abnormal [facility] Potassium [Moles/Vol] 4.5 mmol/L 3.5 - 5.1 mmol/L [facility] Sodium [Moles/Vol] 140 mmol/L 135 - 145 mmol/L [facility] Urea nitrogen [Mass/Vol] 19 mg/dL High 7 - 17 mg/dL [facility] CARECOORDon 01-02-2023 [facility] Care Managment Initi al Assessment Date: 01/02/2023 Patient Name: Lacy Alvarado : 1950 Patient Information Source of Information: Patient Cognition/Language: WFL - Within Functional Limits Permission given to speak with patient direct marketing representative/caregiver as indicated: Yes Confirmation of Payer [...] Living Prescription Coverage: Yes Pharmacy Used: [facility] Medication Management: Independent Transportation/Shopping: Assistance Provider Transportation/Shopping [...] home care needs. Delores Mullins RN [facility] CBC panel Auto (Bld)Ordered By: Maurilio Vidal on 01-02-2023 Erythrocyte distribution width (RBC) [Ratio] 16.8 % High 11.5 - 14.5 % [facility] Hematocrit (Bld) [Volume fraction] 25.7 % Low 35.0 - 47.0 % [facility] Hemoglobin (Bld) [Mass/Vol] 8.7 g/dL Low 11.7 - 16.0 g/dL [facility] Interpretation and review of laboratory results Abnormal [facility] [employer] MCH (RBC) [Entitic mass] 31.3 pg 26.0 - 34.0 pg [facility] [employer] MCHC (RBC) [Mass/Vol] 33.9 % 32.0 - 36.0 % [facility] [employer] MCV (RBC) [Entitic vol] 92.4 fL 80.0 - 98.0 fL [facility] [employer] Platelet mean volume (Bld) [Entitic vol] 9.0 fL 7.4 - 12.4 fL [facility] [employer] Platelets (Bld) [#/Vol] 80 10*3/uL Low 140 - 440 10*3/uL [facility] [employer] RBC (Bld) [#/Vol] 2.79 10*6/uL Low 3.8 - 5.20 10*6/uL [facility] [employer] WBC (Bld) [#/Vol] 6.1 10*3/uL 3.6 - 10.7 10*3/uL [facility] [employer] [facility] [employer] ECG 12 leadOrdered By: Slava Martins on 01-02-2023 Heart rate 95 /min bpm [employer] Work Phone: P [place] 53 degrees [employer] Work Phone: [place] Interval 183 ms [employer] Work Phone: QRS [place] 20 degrees [employer] Work Phone: QRSD Interval 86 ms [facility] Work Phone: QT Interval 380 ms [employer] Work Phone: QTC Interval 480 ms [employer] Work Phone: T Wave [place] 27 degrees [facility] Work Phone: [employer] Work Phone: ECG 12 leadon 01-02-2023 Sinus rhythm Electronically Signed On 01-02-2023 9:42:47 EDT by Michelle Stanley MD - 01/02/2023 IMPRESSION: Sinus rhythm Electronically Signed On 9-1-2023 9:42:47 EDT by [facility] Heart rate 102 /min bpm [facility] P [place] 56 degrees [facility] [place] Interval 147 ms [facility] QRS [place] 6 degrees [facility] QRSD Interval 70 ms [facility] QT Interval 332 ms [facility] QTC Interval 433 ms [facility] T Wave [place] 29 degrees [facility] Sinus tachycardia Probable left atrial enlargement Minimal ST elevation, inferior leads Electronically Signed On 01-02-2023 8:55:59 EDT by Michelle Stanley MD - 01/02/2023 IMPRESSION: Sinus tachycardia Probable left atrial enlargement Minimal ST elevation, inferior leads Electronically Signed On 01-02-2023 8:55:59 EDT by [facility] ECG 12-LEADon 01-02-2023 ECG 12-LEAD IMPRESSION: Sinus rhythm Electronically Signed On 01-02-2023 9:42:[address] [facility] ECG 12-LEAD IMPRESSION: Sinus tachycardia Probable left atrial enlargement Minimal ST elevation, inferior leads Electronically Signed On 01-02-2023 8:55:[address] [facility] Magnesiumon 01-02-2023 Magnesium [Mass/Vol] 2.3 mg/dL 1.6 - 2 .3 mg/dL [facility] Magnesium [Mass/Vol]on 01-02 Interpretation and review of laboratory results Normal [facility] No Panel Informationon 01-02 [facility] POCT glucose meteron 023 Glucose [Mass/Vol] 116 mg/dL High 70 - 100 mg/dL [facility] Interpretation and review of laboratory results Abnormal [facility] Performed by: [facility], [address] [facility] [address] CLIA ID: [id number] [facility] Glucose [Mass/Vol] 121 mg/dL High 70 - 100 mg/dL [facility] Interpretation and review of laboratory results Abnormal [facility] Performed by: [facility], [address] [facility] [address] CLIA ID: [id number] [facility] Glucose [Mass/Vol] 121 mg/dL High 70 - 100 mg/dL [facility] Interpretation and review of laboratory results Abnormal [facility] Performed by: [facility], [address] [place] [address] CLIA ID: [id number] [facility] Glucose [Mass/Vol] 132 mg/dL High 70 - 100 mg/dL [facility] Interpretation and review of laboratory results Abnormal [facility] Performed by: [facility], [address] [place] [address] CLIA ID: [id number] [facility] Glucose [Mass/Vol] 132 mg/dL High 70 - 100 mg/dL [facility] Interpretation and review of laboratory results Abnormal [facility] Performed by: [facility], [address] [place] [address] CLIA ID: [id number] [facility] Glucose [Mass/Vol] 120 mg/dL High 70 - 100 mg/dL [facility] Interpretation and review of laboratory results Abnormal [facility] Performed by: [facility], [address] [place] [address] CLIA ID: [id number] [facility] Glucose [Mass/Vol] 145 mg/dL High 70 - 100 mg/dL [facility] Interpretation and review of laboratory results Abnormal [facility] Performed by: [facility], [address] [place] [address] CLIA ID: [id number] [facility] Glucose [Mass/Vol] 136 mg/dL High 70 - 100 mg/dL [facility] Interpretation and review of laboratory results Abnormal [facility] Performed by: [facility], [address] [place] [address] CLIA ID: [id number] [facility] Glucose [Mass/Vol] 118 mg/dL High 70 - 100 mg/dL [facility] Interpretation and review of laboratory results Abnormal [facility] Performed by: [facility], [address] [place] [address] CLIA ID: [id number] [facility] Glucose [Mass/Vol] 144 mg/dL High 70 - 100 mg/dL [facility] Interpretation and review of laboratory results Abnormal [facility] Performed by: [facility], [address] [place] [address] CLIA ID: [id number] [facility] Glucose [Mass/Vol] 153 mg/dL High 70 - 100 mg/dL [facility] Interpretation and review of laboratory results Abnormal [facility] Performed by: [facility], [address] [place] [address] CLIA ID: [id number] [facility] PROTIME/INR & PTTon 01-03-20 23 aPTT Coag (PPP) [Time] 30.9 s High 20.0 - 30.5 s [facility] INR Coag (PPP) [Relative time] 1.1 {INR} 0.9 - 1.1 [facility] Comment on above: Recommended Anticoag ulant [...] review of laboratory results Abnormal [facility] PT Coag (Bld) [Time] 11.9 s 9.0 - 12.0 s [facility] Progress Noteon 01-02-2023 Progress Note Physical Therapy Facility/Department: [facility] Physical Therapy Initial Evaluation NAME: Lacy [...] The primary encounter diagnosis was CAD in [place] artery. A diagnosis of Coronary artery disease involving coronary bypass graft, unspecified whether angina present, unspecified whether [place] or transplanted heart was also pertinent to this visit. has a past medical history of CHF (congestive heart failure) (CMS/HCC) ([facility]), Diabetes mellitus ([facility]), GERD (gastroesophageal reflux disease), Hyperlipidemia, Hypertension, RA (rheumatoid arthritis) ([facility]), Seizure ([facility]), Seizures ([facility]), and Sleep apnea. has a past [...] / Caregiver Present: No Diagnosis: CAD in [place] artery s/p CABG on 01/01 Follows Commands: [...] with min (more content not included)... [facility] Progress Note ---- -------- Attestation signed by [...] Requesting Consult: cts PCP: MAYDA GARCIA [employer] Specialist: No ASSESSMENT: Cad s/p Cabgx4 Dm2 with hyperglycemia without mcfp insulin Stress hyperglycemia Chf Hld/htn PLAN: discontinue [...] Breath sounds: (more content not included)... [facility] Progress Note ---- -------- Attestation signed by [...] Milian. Patient was admitted on 12/18/22 to [facility] with CP history of CHF, CAD, DM [...] thrombocytopenia. Re (more content not included)... [facility] XR CHEST 1 VIEWon 01-02-2023 XR CHEST 1 VIEW [facility] 1950 [id number] Exam Date/Time: 01/02/2023 05:15 Procedure: XR CHEST [...] Signed Date/Time: 01/02/2023 9:48 AM EDT [facility] XR Chest Single viewon 01-02 Lines, tubes, [...] Electronically Signed Date/Time: 01/02/2023 9:48 AM T [facility] Patient Name: LACY SAVAGE : 1950 Exam Date/Time: 01/02/2023 05:15 Procedure: XR CHEST 1 VIEW Ordering Provider: WEAVER JENNIFER Reason For Exam: Shortness of breath EXAMINATION: CHEST RADIOGRAPH (SINGLE VIEW AP OR PA) Clinical History: Shortness of breath Comparison: Chest radiograph 01/01/2023 and 12/29/2022 RESULT: See impression [facility] Johan Ervin MD - 01/02/2023 [...] Electronically Signed Date/Time: 01/02/2023 9:48 AM EDT [facility] [employer] Radiology Study observation (narrative) [employer] XR Chest Single viewOrdered By: Johan Ervin on 01-02-2023 [facility] Work Phone: Basic metabolic 1998 panelon 01-01-2023 Anion gap [Moles/Vol] 10 mmol/L 3 - 13 mmol/L [facility] [facility] Calcium [Mass/Vol] 9.0 mg/dL 8.4 - 10. 4 mg/dL [facility] Chloride [Moles/Vol] 110 mmol/L High 98 - 10 7 mmol/L [facility] CO2 [Moles/Vol] 20 mmol/L Low 22 - 30 mmol/L [facility] [facility] Creatinine [Mass/Vol] 0.77 mg/dL 0.52 - 1.04 mg/dL [facility] GFR/1.73 sq M.predicted MDRD (S/P/Bld) [Vol rate/Area] 83.1 mL/min/{1.73_m2} - PINF [facility] [facility] Comment on above: Calculation based on the Chronic Kidney Disease Epidemiology Collaboration (CKD-EPI) equation refit without adjustment for race Glucose [Mass/Vol] 124 mg/dL High 70 - 100 mg/dL [facility] [facility] Potassium [Moles/Vol] 3.6 mmol/L 3.5 - 5.1 mmol/L [facility] [facility] Sodium [Moles/Vol] 140 mmol/L 135 - 145 mmol/L [facility] [facility] Urea nitrogen [Mass/Vol] 21 mg/dL High 7 - 17 mg/dL [facility] [facility] Blood gas, arterialOrdered B y: Arthur Lisa on 01-01-2023 Base excess Calc (Bld) [Moles/Vol] -3.3000 mmol/L Low -3.0 - 3.0 mmol/L [facility] [facility] CO2 (Bld) [Partial pressure] 30.7 mm[Hg] Low - PINF [facility] [facility] CO2 [Moles/Vol] 21.4 mmol/L Low 23.0 - 27.0 mmol/L [facility] HCO3 (Bld) [Moles/Vol] 20.4 mmol/L Low 21.0 - 25.0 mmol/L [facility] [facility] Hemoglobin (Bld) [Mass/Vol] 7.1 g/dL Screen Only [facility] Interpretation and review of laboratory results Abnormal [facility] Oxygen (Bld) [Partial pressure] 243.2 mm[Hg] High [facility] pH (Bld) 7.441 [pH] 7.350 - 7.450 [facility] Source Of Oxygen Vent [facility] CBC panel Auto (Bld)on 01-01 Erythrocyte distribution width (RBC) [Ratio] 14.2 % 11.5 - 14.5 % [facility] Hematocrit (Bld) [Volume fraction] 20.0 % Low 35.0 - 47.0 % [facility] Hemoglobin (Bld) [Mass/Vol] 6.9 g/dL Critically low 11.7 - 16.0 g/dL [facility] Interpretation and review of laboratory results Abnormal [facility] MCH (RBC) [Entitic mass] 33.1 pg 26.0 - 34.0 pg [facility] MCHC (RBC) [Mass/Vol] 34.3 % 32.0 - 36.0 % [facility] MCV (RBC) [Entitic vol] 96.7 fL 80.0 - 98.0 fL [facility] Platelet mean volume (Bld) [Entitic vol] 8.7 fL 7.4 - 12.4 fL [facility] Platelets (Bld) [#/Vol] 79 10*3/uL Low 140 - 440 10*3/uL [facility] RBC (Bld) [#/Vol] 2.07 10*6/uL Low 3.8 - 5.20 10*6/uL [facility] WBC (Bld) [#/Vol] 9.0 10*3/uL 3.6 - 10.7 10*3/uL [facility] Repeated [facility] CBC panel Auto (Bld)Ordered By: Sadie Jackson on 01-01-2023 Erythrocyte distribution width (RBC) [Ratio] 14.3 % 11.5 - 14.5 % [facility] Hematocrit (Bld) [Volume fraction] 21.4 % Low 35.0 - 47.0 % [facility] Hemoglobin (Bld) [Mass/Vol] 7.2 g/dL Low 11.7 - 16.0 g/dL [facility] Interpretation and review of laboratory results Abnormal [facility] MCH (RBC) [Entitic mass] 32.7 pg 26.0 - 34.0 pg [facility] MCHC (RBC) [Mass/Vol] 33.7 % 32.0 - 36.0 % [facility] MCV (RBC) [Entitic vol] 97.2 fL 80.0 - 98.0 fL [facility] Platelet mean volume (Bld) [Entitic vol] 9.0 fL 7.4 - 12.4 fL [facility] Platelets (Bld) [#/Vol] 78 10*3/uL Low 140 - 440 10*3/uL [facility] Comment on above: This result was prev iously suppressed from the chart. RBC (Bld) [#/Vol] 2.20 10*6/uL Low 3.8 - 5.20 10*6/uL [facility] WBC (Bld) [#/Vol] 7.1 10*3/uL 3.6 - 10.7 10*3/uL [facility] Calcium.ionized [Moles/Vol]o n 01-01-2023 Calcium.ionized (Bld) [Moles/Vol] 4.80 mg/dL 4.30 - 5.20 mg/dL [facility] Interpretation and review of laboratory results Normal [facility] PH, IONIZED CALCIUM 7.46 7.31 - 7.46 [facility] Consulton 01-01-2023 Consult ---- -------- [...] Requesting Consult: cts PCP: MAYDA GARCIA [employer] Specialist: No ASSESSMENT: Cad s/p Cabgx4 Dm2 with hyperglycemia without long term care phlebotomist insulin Stress hyperglycemia Chf Hld/htn PLAN: Continue [...] times dana (more content not included)... Normal [facility] Consult ---- -------- Attestation signed by Carlos Chavarria DO at 01/01/2023 2:48 PM I have personally performed a [id number] diagnostic evaluation on this patient on date of service 01/01/23 . History, labs, imaging studies, and electronic medical record have been reviewed by me. This note documented by the []warehouse team member [x]SONYA reflects my history, exam, and medical [...] leak in CTs No Pacer wires -------- [facility]: Critical Care Consultation Note Date: 01/01/23 PATIENT NAME: Lacy Alvarado : 1950 (72 y.o.) Reason for Consult: Critical Care & Vent Management HPI: Lacy Alvarado is a 72 y.o. female was referred to us by Dr. Bhanu Milian. Patient was admitted on 12/18/22 to [facility] with CP history of CHF, CAD, DM [...] history of CHF (congestive heart failure) (CMS/HCC) ([facility]), Diabetes mellitus ([facility]), GERD (gastroesophageal reflux disease), Hyperlipidemia, Hypertension, RA (rheumatoid arthritis) ([facility]), Seizure ([facility]), Seizures ([facility]), and Sleep apnea. Past Surgical History: [...] on 01/01/2023 12/24/22 Kassy Tabares APRN - COMPUTER REPAIR ENGINEER traMADol (Ultram) 50 MG tablet Take 50 mg by mouth. 11/28/21 Historical Provider, Surgery Hand Off: Arrival Time in [facility]: 1115 Complications/Pertinent Events: Last Paralytic: Medications given in route: Gtts OR report Propofol: 50 Insulin: 1 Amicar: 29 Current gtts upon arrival Propofol:50 Insulin: 1 Amicar: 29 Devices (more content not included)... [facility] FibrinogenOrdered By: Stephania dunlap on 01-01-2023 Fibrinogen Coag (PPP) [Mass/Vol] 149 mg/dL Low 200 - 400 mg/dL [facility] Fibrinogen Coag (PPP) [Mass/ Vol]Ordered By: Stephania Cummings on 01-01-2023 Interpretation and review of laboratory results Abnormal [facility] Hemoglobin (Bld) [Mass/Vol]O rdered By: Lety Decker on 01-01-2023 Hematocrit (Bld) [Volume fraction] 26.8 % Low 35.0 - 47.0 % [facility] Interpretation and review of laboratory results Abnormal [facility] Hemoglobin and hematocrit, b loodOrdered By: Lety Decker on 01-01-2023 Hemoglobin (Bld) [Mass/Vol] 9.1 g/dL Low 11.7 - 16.0 g/dL [facility] Magnesiumon 01-01-2023 Magnesium [Mass/Vol] 3.4 mg/dL High 1.6 - 2 .3 mg/dL [facility] No Panel Informationon 01-01 Blood Expiration Date [id number] S [facility] Crossmatch interpretation COMP [facility] Dispense Status Transfused [facility] Product Blood Type 5100 [facility] PRODUCT CODE [id number] [facility] Unit ABO O [facility] RH Positive [facility] Unit Volume 300 mL [facility] Interpretation and review of laboratory results Abnormal [facility] POCT glucose meteron 023 Glucose [Mass/Vol] 141 mg/dL High 70 - 100 mg/dL [facility] Interpretation and review of laboratory results Abnormal [facility] Performed by: [facility], [address] [place] [address] CLIA ID: [id number] [facility] Glucose [Mass/Vol] 148 mg/dL High 70 - 100 mg/dL [facility] Interpretation and review of laboratory results Abnormal [facility] Performed by: [email or web address], [address] [place] [address] 88[address] CLIA ID: [id number] [facility] Glucose [Mass/Vol] 138 mg/dL High 70 - 100 mg/dL [facility] Interpretation and review of laboratory results Abnormal [facility] Performed by: [facility], [address] [place] [address] CLIA ID: [id number] [facility] Glucose [Mass/Vol] 121 mg/dL High 70 - 100 mg/dL [facility] Interpretation and review of laboratory results Abnormal [facility] Performed by: [facility], [address] [place] [address] 216[address] CLIA ID: [id number] [facility] Glucose [Mass/Vol] 142 mg/dL High 70 - 100 mg/dL [facility] Interpretation and review of laboratory results Abnormal [facility] Performed by: [facility], [address] [place] [address] 9[address] CLIA ID: [id number] [facility] Glucose [Mass/Vol] 133 mg/dL High 70 - 100 mg/dL [facility] Interpretation and review of laboratory results Abnormal [facility] Performed by: [facility], [address] [place] [address]188 CLIA ID: [id number] [facility] Glucose [Mass/Vol] 152 mg/dL High 70 - 100 mg/dL [facility] Interpretation and review of laboratory results Abnormal [facility] Performed by: [facility], [address] [place] [address] 16[address] CLIA ID: [id number] [facility] Glucose [Mass/Vol] 170 mg/dL High 70 - 100 mg/dL [facility] Interpretation and review of laboratory results Abnormal [facility] Performed by: [facility], [address] [place] [address] 49[address] CLIA ID: [id number] [facility] Glucose [Mass/Vol] 120 mg/dL High 70 - 100 mg/dL [facility] Interpretation and review of laboratory results Abnormal [facility] Performed by: [facility], [address] [place] [address] 83[address] CLIA ID: [id number] [facility] Glucose [Mass/Vol] 84 mg/dL 70 - 100 mg/dL [facility] Interpretation and review of laboratory results Normal [facility] Performed by: [facility], [address] [place] [address] 840[address] CLIA ID: [id number] [facility] Glucose [Mass/Vol] 82 mg/dL 70 - 100 mg/dL [facility] Interpretation and review of laboratory results Normal [facility] Performed by: [facility] [employer] [facility], [address] [place] [address] CLIA ID: [id number] [facility] Glucose [Mass/Vol] 101 mg/dL High 70 - 100 mg/dL [facility] Interpretation and review of laboratory results Abnormal [facility] Performed by: [facility], [address] [place] [address] 95[address] CLIA ID: [id number] [facility] Glucose [Mass/Vol] 125 mg/dL High 70 - 100 mg/dL [facility] Interpretation and review of laboratory results Abnormal [facility] Performed by: [facility] [employer] [facility], [address] [place] [address] 750[address] CLIA ID: [id number] [facility] PROTIME/INR & PTTon 01-02-20 aPTT Coag (PPP) [Time] 24.2 s 20.0 - 30.5 s [facility] INR Coag (PPP) [Relative time] 1.3 {INR} High 0.9 - 1.1 [facility] Comment on above: Recommended Anticoag ulant [...] review of laboratory results Abnormal [facility] PT Coag (Bld) [Time] 14.0 s High 9.0 - 12.0 s [facility] [employer] Phosphate [Moles/Vol]on 12-04 Interpretation and review of laboratory results Normal [facility] Phosphate [Mass/Vol] 3.7 mg/dL 2.5 - 4 .5 mg/dL [facility] Prepare RBC: 2 Unitson 01-01 Unit Number [id number] [facility] Unit Number [id number] [facility] US Heart Transesophagealon 0 01-01-2023 Left Ventricle: [...] Echo Additional Conclusions No significant valvular abnormalities. [facility] XR CHEST 1 VIEWon 01-01-2023 XR CHEST 1 VIEW Patient Name: [facility]AC[facility] 1950 [id number] Exam Date/Time: 01/01/2023 13:18 Procedure: XR CHEST [...] Electronically Signed Date/Time: 01/01/2023 1:55 PM EDT [facility] XR Chest Single viewon 01-01 1. Status post thora cic surgery (CABG). 2. Line and tube placements as described. 3. Pulmonary vascular congestion without evidence of other acute cardiopulmonary process. Report Dictated on Electronically Signed By: Gómez Calvert MD Electronically Signed Date/Time: 01/01/2023 1:55 PM EDT [facility] Name[facility] 1950 [id number] Exam Date/Time: 01/01/2023 13:18 Procedure: XR CHEST [...] heart failure, infiltrate or pneumothorax is seen. [facility] Gómez Calvert MD - 01/01/2023 Patient Name: LACY ALVARADO : 1950 [id number] Exam Date/Time: 01/01/2023 13:18 Procedure: XR CHEST [...] Electronically Signed Date/Time: 01/01/2023 1:55 PM EDT [facility] Radiology Study observation (narrative) [facility] XR Chest Single viewOrdered By: Gómez Calvert on 01-01-2023 [facility] [employer] Work Phone: ECG 12-LEADon 12-30-2022 ECG 12-LEAD IMPRESSION: Sinus rhythm Probable left atrial enlargement Electronically Signed On 12-30-2022 8:43:39 EDT by Chris Franks [facility] XR CHEST 2 VIEWSon 3 XR CHEST 2 VIEWS Patient Name: LACY [facility]AGE : 1950 [id number] Exam Date/Time: 12/29/2022 15:44 Procedure: XR CHEST [...] Signed Date/Time: 12/30/2022 11:52 AM EDT [facility] PREPROCINSon 12-29-2022 PREPROCINS Medication List Accurate as [...] have specific questions, please call your surgeon. 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 TAKE THE H ELEVATOR TO THE FIRST FLOOR, TURN LEFT OFF THE ELEVATOR AND GO TO THE SAME DAY SURGERY REGISTRATION DESK TO CHECK IN [facility] 12-26-2022 36 Pre op teaching done with patient. Instructed to hold NSAIDS except Aspirin 7 days prior to surgery, hold Plavix 7 days prior to surgery, and not to take any medications day of surgery. Pharmacy confirmed. All questions answered. [facility] 3612-24-2022 36 Called spoke with patient, all questions answered [facility] 36 Surg proc orders michael patience, medications e-scribed - talked to patient, answered all questions. [place] [address]on 08-22-2023 36 Patient is scheduled for CABG on 01/01. Patient lives on the third floor and asking if she is able to climb all those stairs right after surgery? Please advise [phone] [facility] Office Visiton 12-23-2022 Follow-up visit [id number] Villagomez 1950 F Date Provider Department Center 12/23/2022 [id number] None No family history on file Level of Service:44464 [place] OFFICE/OUTPATIENT NEW HIGH MDM 60-74 MINUTES Reason for Visit and Comments: New Patient [542] [facility] Progress Noteon 12-23-2022 Progress Note [facility] [address] [facility] [address] Dept: [phone] Dept Loc: [phone] Visit type: New Reason for Visit: Multivessel [...] Milian. Patient was admitted on 12/18/22 to [facility] with CP. Per notes, patient has a [...] CT Abdomen (more content not included)... [facility] Glucose Glucometer (BldC) [M ass/Vol]Ordered By: Edwin Kaplan on 12-19-2022 Glucose [Mass/Vol] 101 mg/dL 74-106 [facility] Comment on above: MANAGEMENT OF PATIEN T CARE PER NURSING PROTOCOL Absolute lymphocyte countOrd ered By: Turner Armendariz on 12-18-2022 Lymphocytes Auto (Unsp spec) [#/Vol] 2.22 10*3/uL 0.83-4.51 [facility] Basophil percentageOrdered B y: Turner Armendariz on 12-18-2022 Basophil percentage 144 mg/dL 74-106 [facility] Basophil percentage 141 mmol/L 136-145 [facility] Basophil percentage 4.0 mmol/L 3.5-5.1 [facility] Basophil percentage 108 mmol/L 98-107 [facility] Basophils (Bld) [#/Vol] 4.9 10*3/uL 4.4-11.0 [facility] Basophils (Bld) [#/Vol] 2.2 10*3/uL 2.0-7.7 [facility] Basophils/100 WBC (Bld) 0.4 % 0-1 [facility] Basophils/100 WBC (Bld) 43.9 % 47-70 [facility] Basophils/100 WBC (Bld) 2.4 % 0-5 [facility] Chloride [Moles/Vol] 108 mmol/L 98-[address] [facility] Eosinophils/100 WBC (Bld) 2.4 % 0-5 [facility] Glucose [Mass/Vol] 144 mg/dL 74-106 [facility] Comment on above: Fasting Glucose resu lt greater than or equal to 126 mg/dL suggests DIABETES MELLITUS per A.D.A. criteria. Neutrophils (Bld) [#/Vol] 2.2 10*3/uL 2.0-7.7 [facility] Neutrophils/100 WBC (Bld) 43.9 % 47-70 [facility] Potassium [Moles/Vol] 4.0 mmol/L 3.5-5.1 [facility] Sodium [Moles/Vol] 141 mmol/L 136-145 [facility] WBC (Bld) [#/Vol] 4.9 10*3/uL 4.4-11.0 [facility] Blood erythrocytes count (nu mber/volume)Ordered By: Turner Armendariz on 12-18-2022 RBC (Bld) [#/Vol] 3.32 10*6/uL 4.2-5.4 [facility] Blood hemoglobin measurement (mass/volume)Ordered By: Turner Armendariz on 12-18-2022 Hemoglobin (Bld) [Mass/Vol] 10.8 g/dL 12.0-15.0 [facility] Blood lymphocytes/100 leukoc ytesOrdered By: Turner Armendariz on 12-18-2022 Lymphocytes/100 WBC (Bld) 45.0 % 19-41 [facility] Blood monocytes/100 leukocyt esOrdered By: Turner Armendariz on 12-18-2022 Monocytes/100 WBC (Bld) 8.1 % 0-10 [facility] Blood platelet mean volumeOr dered By: Turner Armendariz on 12-18-2022 Platelet mean volume (Bld) [Entitic vol] 10.7 fL 6.2-12.0 [facility] Determination of erythrocyte mean corpuscular volume (MCV)Ordered By: Turner Armendariz on 12-18-2022 MCV (RBC) [Entitic vol] 99.1 fL 81-99 [facility] Hematocrit Auto (Bld) [Volum e fraction]Ordered By: Turner Armendariz on 12-18-2022 Hematocrit (Bld) [Volume fraction] 32.9 % 37-47 [facility] INR in Blood by Coagulation assayOrdered By: Jossue Boyd on 12-18-2022 INR Coag (Bld) [Relative time] 1.0 {INR} [facility] Laboratory - Chemistry and C hemistry - challengeOrdered By: Turner Armendariz on 12-18-2022 CO2 [Moles/Vol] 29.0 mmol/L 21.0-32.0 [facility] Urea nitrogen/Creatinine [Mass ratio] 27.6 mg/mg 10-20 [facility] - CoagulationOrde red By: Jossue Boyd on 12-18-2022 aPTT Coag (Bld) [Time] 27.4 s 24.1-36.2 [facility] PT Coag (PPP) [Time] 12.8 s 11.7-14.[address] [facility] - Hematology and Cell countsOrdered By: Turner Armendariz on 12-18-2022 Erythrocyte distribution width (RBC) [Entitic vol] 50.8 fL 35.1-43.9 [facility] Erythrocyte distribution width (RBC) [Ratio] 13.9 % 11.6-14.6 [facility] Immature granulocytes/100 WBC (Bld) 0.200 % 0.0-0.9 [facility] Comment on above: IG% - Immature Granu locytes (promyelocytes, myelocytes and metamyelocytes) > 1% indicates that a LEFT SHIFT is Present. MCH (RBC) [Entitic mass] 32.5 pg 27.0-32.0 [facility] Nucleated RBC/100 WBC (Bld) [Ratio] 0 % 0-5 [facility] MCHC Auto (RBC) [Mass/Vol]Or dered By: Turner Armendariz on 12-18-2022 MCHC (RBC) [Mass/Vol] 32.8 g/dL 32-36 [facility] No Panel InformationOrdered By: Edwin Kaplan on 12-18-2022 Troponin I High Sensitivity 5 pg/mL 3.0-54.0 [facility] Comment on above: Please Note: New Gina t Units and Gender Specific Reference Ranges. For more information see Policy Stat Procedure [place] High Sensitivity Troponin (TNIH) and attachments. 5 pg/mL 3.0-54.0 [facility] No Panel InformationOrdered By: Turner Armendariz on 12-18-2022 Troponin I High Sensitivity 5 pg/mL 3.0-54.0 [facility] Comment on above: Please Note: New Gina t Units and Gender Specific Reference Ranges. For more information see Policy Stat Procedure [place] High Sensitivity Troponin (TNIH) and attachments. D-Dimer Quantitative (PE/DVT) 0.31 FEU/ug/m 0.27-0.49 [facility] Comment on above: NORMAL D-Dimer level (<0.50) indicates no DVT or PE. Estimated Creatinine Clearance Calc 71.34 ml/min [facility] Estimated GFR (MDRD) Amer 79 mL/min >60 [facility] Comment on above: GFR Calc Estimated GFR (MDRD) Non-Af Amer 65 mL/min >60 [facility] Comment on above: Non- GFR Calc 32.5 pg 27.0-32.0 [facility] 13.9 % 11.6-14.6 [facility] 50.8 fl 35.1-43.9 [facility] 0.200 % 0.0-0.9 [facility] 0 % 0-5 [facility] 0.31 FEU/ug/m 0.27-0.49 [facility] 65 mL/min >60 [facility] 79 mL/min >60 [facility] 71.34 ml/min [facility] 27.6 RATIO 10-20 [facility] 29.0 mmol/L 21.0-32.0 [facility] No Panel InformationOrdered By: Jossue Boyd on 12-18-2022 12.8 SECONDS 11.7-14.9 [facility] 27.4 Seconds 24.1-36.2 [facility] Platelets bldOrdered By: Natalie Armendariz on 12-18-2022 Platelets (Bld) [#/Vol] 183 10*3/uL 150-450 [facility] Serum or plasma calcium loretta urement (mass/volume)Ordered By: Turner Quinonesdavid on 12-18-2022 Calcium [Mass/Vol] 8.5 mg/dL 8.5-10.1 [facility] Serum or plasma creatinine m easurement (mass/volume)Ordered By: Turner Quinonesdavid on 12-18-2022 Creatinine [Mass/Vol] 0.90 mg/dL 0.55-1.02 [facility] Comment on above: The validity of the calculated GFR & GFRAA in patients over 70 years has not been determined. Clinical correlation is essential. Serum or plasma urea nitroge n measurement (mass/volume)Ordered By: Turner Quinonesdavid on 12-18-2022 Urea nitrogen [Mass/Vol] 25 mg/dL 7-18 [facility] Thin prep Papanicolaou smear with manual screeningOrdered By: Turner Quinonesdavid on 12-18-2022 Thin prep Papanicolaou smear with manual screening 4 5-15 [facility] Laboratory - Hematology and Cell countson 12-11-2022 HbA1c (Bld) [Mass fraction] 6.6 % 4.2-6.3 [facility] No Panel Informationon 12-11 6.6 % 4.2-6.3 [facility] Basophil percentageOrdered B y: Dr. Garcia on 10-01-2022 Chloride [Moles/Vol] 113 mmol/L 98-[address] [facility] Glucose [Mass/Vol] 114 mg/dL 74-106 [facility] Comment on above: Fasting Glucose resu lt from 100 to 125 mg/dL suggests IMPAIRED HOMEOSTASIS per A.D.A. criteria. Potassium [Moles/Vol] 3.8 mmol/L 3.5-5.1 [facility] Sodium [Moles/Vol] 144 mmol/L 136-145 [facility] Laboratory - Chemistry and C hemistry - challengeOrdered By: Dr. Garcia on 10-01-2022 CO2 [Moles/Vol] 25.0 mmol/L 21.0-32.0 [facility] Urea nitrogen/Creatinine [Mass ratio] 26.3 mg/mg 10-20 [facility] No Panel InformationOrdered By: Dr. Garcia on 10-01-2022 Estimated GFR (MDRD) Amer 92 mL/min >60 [facility] Comment on above: GFR Calc Estimated GFR (MDRD) Non-Af Amer 76 mL/min >60 [facility] Comment on above: Non- GFR Calc Valproic Acid (Depakene) Level 36 ug/mL 50-100 [facility] Serum or plasma calcium loretta urement (mass/volume)Ordered By: Dr. Garcia on 10-01-2022 Calcium [Mass/Vol] 8.6 mg/dL 8.5-10.1 [facility] Serum or plasma creatinine m easurement (mass/volume)Ordered By: Dr. Garcia on 10-01-2022 Creatinine [Mass/Vol] 0.80 mg/dL 0.55-1.02 [facility] Comment on above: The validity of the calculated GFR & GFRAA in patients over 70 years has not been determined. Clinical correlation is essential. Serum or plasma urea nitroge n measurement (mass/volume)Ordered By: Dr. Garcia on 10-01-2022 Urea nitrogen [Mass/Vol] 21 mg/dL 7-18 [facility] Thin prep Papanicolaou smear with manual screeningOrdered By: Dr. Garcia on 10-01-2022 Thin prep Papanicolaou smear with manual screening 6 5-15 [facility] Whole blood hemoglobin A1c/t otal hemoglobin ratio (mass fraction)Ordered By: Dr. Garcia on 10-01-2022 HbA1c (Bld) [Mass fraction] 7.0 % 3.8-5.6 [facility] Comment on above: Normal < 5.7 % Predi abetic 5.7 - 6.4 % Diabetic >or= 6.5 % Please note range changes. Absolute lymphocyte countOrd ered By: Dr. Freeman on 08-13-2022 Lymphocytes Auto (Unsp spec) [#/Vol] 2.73 10*3/uL 0.83-4.51 [facility] Basophil percentageOrdered B y: Dr. Freeman on 08-13-2022 Basophils/100 WBC (Bld) 0.6 % 0-1 [facility] Bilirubin [Mass/Vol] 0.20 mg/dL 0.20-1.[address] [facility] Comment on above: For patients on eltr ombopag therapy, use of Dimension Viola TBIL is not recommended. Chloride [Moles/Vol] 114 mmol/L 98-[address] [facility] Eosinophils/100 WBC (Bld) 2.1 % 0-5 [facility] Glucose [Mass/Vol] 143 mg/dL 74-106 [facility] Comment on above: Fasting Glucose resu lt greater than or equal to 126 mg/dL suggests DIABETES MELLITUS per A.D.A. criteria. Neutrophils (Bld) [#/Vol] 2.8 10*3/uL 2.0-7.7 [facility] Neutrophils/100 WBC (Bld) 45.6 % 47-70 [facility] Potassium [Moles/Vol] 3.7 mmol/L 3.5-5.1 [facility] Protein [Mass/Vol] 7.6 g/dL 6.4-8.2 [facility] Sodium [Moles/Vol] 140 mmol/L 136-145 [facility] WBC (Bld) [#/Vol] 6.2 10*3/uL 4.4-11.0 [facility] Blood erythrocytes count (nu mber/volume)Ordered By: Dr. Freeman on 08-13-2022 RBC (Bld) [#/Vol] 4.08 10*6/uL 4.2-5.4 [facility] Blood hemoglobin measurement (mass/volume)Ordered By: Dr. Freeman on 08-13-2022 Hemoglobin (Bld) [Mass/Vol] 12.8 g/dL 12.0-15.0 [facility] Blood lymphocytes/100 leukoc ytesOrdered By: Dr. Freeman on 08-13-2022 Lymphocytes/100 WBC (Bld) 44.1 % 19-41 [facility] Blood monocytes/100 leukocyt esOrdered By: Dr. Freeman on 08-13-2022 Monocytes/100 WBC (Bld) 7.4 % 0-10 [facility] Blood platelet mean volumeOr dered By: Dr. Freeman on 08-13-2022 Platelet mean volume (Bld) [Entitic vol] 10.6 fL 6.2-12.0 [facility] Determination of erythrocyte mean corpuscular volume (MCV)Ordered By: Dr. Freeman on 08-13-2022 MCV (RBC) [Entitic vol] 99.3 fL 81-99 [facility] Hematocrit Auto (Bld) [Volum e fraction]Ordered By: Dr. Freeman on 08-13-2022 Hematocrit (Bld) [Volume fraction] 40.5 % 37-47 [facility] Laboratory - Chemistry and C hemistry - challengeOrdered By: Dr. Freeman on 08-13-2022 ALP [Catalytic activity/Vol] 103 U/L 45-117 [facility] ALT [Catalytic activity/Vol] 32 U/L 13-56 [facility] CO2 [Moles/Vol] 22.0 mmol/L 21.0-32.0 [facility] Globulin (S) [Mass/Vol] 4.0 g/dL 2.2-4.2 [facility] Urea nitrogen/Creatinine [Mass ratio] 18.8 mg/mg 10-20 [facility] - Hematology and Cell countsOrdered By: Dr. Freeman on 08-13-2022 Erythrocyte distribution width (RBC) [Entitic vol] 49.6 fL 35.1-43.9 [facility] Erythrocyte distribution width (RBC) [Ratio] 13.5 % 11.6-14.6 [facility] Immature granulocytes/100 WBC (Bld) 0.200 % 0.0-0.9 [facility] Comment on above: IG% - Immature Granu locytes (promyelocytes, myelocytes and metamyelocytes) > 1% indicates that a LEFT SHIFT is Present. MCH (RBC) [Entitic mass] 31.4 pg 27.0-32.0 [facility] Nucleated RBC/100 WBC (Bld) [Ratio] 0 % 0-5 [facility] MCHC Auto (RBC) [Mass/Vol]Or dered By: Dr. Freeman on 08-13-2022 MCHC (RBC) [Mass/Vol] 31.6 g/dL 32-36 [facility] No Panel InformationOrdered By: Dr. Freeman on 08-13-2022 Estimated Creatinine Clearance Calc 41.58 ml/min [facility] Estimated GFR (MDRD) Amer 70 mL/min >60 [facility] Comment on above: GFR Calc Estimated GFR (MDRD) Non-Af Amer 58 mL/min >60 [facility] Comment on above: Non- GFR Calc Valproic Acid (Depakene) Level 38 ug/mL 50-100 [facility] Platelets bldOrdered By: Dr. Freeman on 08-13-2022 Platelets (Bld) [#/Vol] 207 10*3/uL 150-450 [facility] Serum or plasma albumin loretta urement (mass/volume)Ordered By: Dr. Freeman on 08-13-2022 Albumin [Mass/Vol] 3.6 g/dL 3.2-5.0 [facility] Serum or plasma albumin/glob ulin mass ratioOrdered By: Dr. Freeman on 08-13-2022 Albumin/Globulin [Mass ratio] 0.9 {ratio} 0.9-2.4 [facility] Serum or plasma calcium loretta urement (mass/volume)Ordered By: Dr. Freeman on 08-13-2022 Calcium [Mass/Vol] 8.5 mg/dL 8.5-10.1 [facility] Serum or plasma creatinine m easurement (mass/volume)Ordered By: Dr. Freeman on 08-13-2022 Creatinine [Mass/Vol] 1.01 mg/dL 0.55-1.02 [facility] Comment on above: The validity of the calculated GFR & GFRAA in patients over 70 years has not been determined. Clinical correlation is essential. Serum or plasma urea nitroge n measurement (mass/volume)Ordered By: Dr. Freeman on 08-13-2022 Urea nitrogen [Mass/Vol] 19 mg/dL 7-18 [facility] Thin prep Papanicolaou smear with manual screeningOrdered By: Dr. Freeman on 08-13-2022 Thin prep Papanicolaou smear with manual screening 28 U/L 15-37 [facility] Thin prep Papanicolaou smear with manual screening 4 5-15 [facility] Laboratory - Hematology and Cell countson 06-30-2022 HbA1c (Bld) [Mass fraction] 6.8 % 4.2-6.3 [facility] Culture, urineOrdered By: Dr Yoko Chan on 06-07-2022 Bacteria identified Cx Nom (U) Mixed Gram Pos & Gram Neg Org [facility] Absolute lymphocyte countOrd ered By: Dr. Chan on 06-06-2022 Lymphocytes Auto (Unsp spec) [#/Vol] 1.11 10*3/uL 0.83-4.51 [facility] Basophil percentageOrdered B y: Dr. Chan on 06-06-2022 Basophil percentage 0 SEEN /hpf 0-[address] [facility] Basophils/100 WBC (Bld) 0.4 % 0-1 [facility] Bilirubin [Mass/Vol] 0.30 mg/dL 0.20-1.[address] [facility] Comment on above: For patients on eltr ombopag therapy, use of Dimension Viola TBIL is not recommended. Chloride [Moles/Vol] 107 mmol/L 98-[address] [facility] Eosinophils/100 WBC (Bld) 1.5 % 0-5 [facility] Glucose [Mass/Vol] 117 mg/dL 74-106 [facility] Comment on above: Fasting Glucose resu lt from 100 to 125 mg/dL suggests IMPAIRED HOMEOSTASIS per A.D.A. criteria. Neutrophils (Bld) [#/Vol] 4.0 10*3/uL 2.0-7.7 [facility] Neutrophils/100 WBC (Bld) 72.8 % 47-70 [facility] Potassium [Moles/Vol] 4.2 mmol/L 3.5-5.1 [facility] Protein [Mass/Vol] 7.9 g/dL 6.4-8.2 [facility] Sodium [Moles/Vol] 142 mmol/L 136-145 [facility] WBC (Bld) [#/Vol] 5.4 10*3/uL 4.4-11.0 [facility] Bilirubin Test strip Ql (U)O rdered By: Dr. Chan on 06-06-2022 Bilirubin Ql (U) Negative Negative [facility] Blood erythrocytes count (nu mber/volume)Ordered By: Dr. Chan on 06-06-2022 RBC (Bld) [#/Vol] 3.83 10*6/uL 4.2-5.4 [facility] Blood hemoglobin measurement (mass/volume)Ordered By: Dr. Chan on 06-06-2022 Hemoglobin (Bld) [Mass/Vol] 11.9 g/dL 12.0-15.0 [facility] Blood lymphocytes/100 leukoc ytesOrdered By: Dr. Chan on 06-06-2022 Lymphocytes/100 WBC (Bld) 20.4 % 19-41 [facility] Blood monocytes/100 leukocyt esOrdered By: Dr. Chan on 06-06-2022 Monocytes/100 WBC (Bld) 4.0 % 0-10 [facility] Blood platelet mean volumeOr dered By: Dr. Chan on 06-06-2022 Platelet mean volume (Bld) [Entitic vol] 10.1 fL 6.2-12.0 [facility] Determination of erythrocyte mean corpuscular volume (MCV)Ordered By: Dr. Chan on 06-06-2022 MCV (RBC) [Entitic vol] 96.6 fL 81-99 [facility] Hematocrit Auto (Bld) [Volum e fraction]Ordered By: Dr. Chan on 06-06-2022 Hematocrit (Bld) [Volume fraction] 37.0 % 37-47 [facility] Ketones Test strip Ql (U)Ord ered By: Dr. Chan on 06-06-2022 Ketones Ql (U) 15 mg/dl Negative [facility] Laboratory - Chemistry and C hemistry - challengeOrdered By: Dr. Chan on 06-06-2022 ALP [Catalytic activity/Vol] 88 U/L 45-117 [facility] ALT [Catalytic activity/Vol] 28 U/L 13-56 [facility] CO2 [Moles/Vol] 26.0 mmol/L 21.0-32.0 [facility] Globulin (S) [Mass/Vol] 4.4 g/dL 2.2-4.2 [facility] Urea nitrogen/Creatinine [Mass ratio] 29.2 mg/mg 10-20 [facility] - Hematology and Cell countsOrdered By: Dr. Chan on 06-06-2022 Erythrocyte distribution width (RBC) [Entitic vol] 48.0 fL 35.1-43.9 [facility] Erythrocyte distribution width (RBC) [Ratio] 13.3 % 11.6-14.6 [facility] Immature granulocytes/100 WBC (Bld) 0.900 % 0.0-0.9 [facility] Comment on above: IG% - Immature Granu locytes (promyelocytes, myelocytes and metamyelocytes) > 1% indicates that a LEFT SHIFT is Present. MCH (RBC) [Entitic mass] 31.1 pg 27.0-32.0 [facility] Nucleated RBC/100 WBC (Bld) [Ratio] 0 % 0-5 [facility] MCHC Auto (RBC) [Mass/Vol]Or dered By: Dr. Chan on 06-06-2022 MCHC (RBC) [Mass/Vol] 32.2 g/dL 32-36 [facility] Mucus LM Ql (Urine sed)Order ed By: Dr. Chan on 06-06-2022 Mucus Ql (Urine sed) 0 SEEN /hpf [facility] Nitrite Test strip Ql (U)Ord ered By: Dr. Chan on 06-06-2022 Nitrite Ql (U) Negative Negative [facility] No Panel InformationOrdered By: Dr. Chan on 06-06-2022 Troponin I High Sensitivity 14 pg/mL 3.0-54.0 [facility] Comment on above: Please Note: New Gina t Units and Gender Specific Reference Ranges. For more information see Policy Stat Procedure [place] High Sensitivity Troponin (TNIH) and attachments. Estimated Creatinine Clearance Calc 39.62 ml/min [facility] Estimated GFR (MDRD) Amer 66 mL/min >60 [facility] Comment on above: GFR Calc Estimated GFR (MDRD) Non-Af Amer 55 mL/min >60 [facility] Comment on above: Non- GFR Calc Valproic Acid (Depakene) Level 62 ug/mL 50-100 [facility] Platelets bldOrdered By: Dr. Chan on 06-06-2022 Platelets (Bld) [#/Vol] 248 10*3/uL 150-450 [facility] Protein Test strip Ql (U)Ord ered By: Dr. Chan on 06-06-2022 Protein Ql (U) 15 mg/dl Negative [facility] Serum or plasma albumin loretta urement (mass/volume)Ordered By: Dr. Chan on 06-06-2022 Albumin [Mass/Vol] 3.5 g/dL 3.2-5.0 [facility] Serum or plasma albumin/glob ulin mass ratioOrdered By: Dr. Chan on 06-06-2022 Albumin/Globulin [Mass ratio] 0.8 {ratio} 0.9-2.4 [facility] Serum or plasma calcium loretta urement (mass/volume)Ordered By: Dr. Chan on 06-06-2022 Calcium [Mass/Vol] 9.1 mg/dL 8.5-10.1 [facility] Serum or plasma creatinine m easurement (mass/volume)Ordered By: Dr. Chan on 06-06-2022 Creatinine [Mass/Vol] 1.06 mg/dL 0.55-1.02 [facility] Comment on above: The validity of the calculated GFR & GFRAA in patients over 70 years has not been determined. Clinical correlation is essential. Serum or plasma urea nitroge n measurement (mass/volume)Ordered By: Dr. Chan on 06-06-2022 Urea nitrogen [Mass/Vol] 31 mg/dL 7-18 [facility] Squamous epithelial cells de tection in urine sediment by light microscopyOrdered By: Dr. Chan on 06-06-2022 Epithelial cells.squamous LM Ql (Urine sed) 0-5 SEEN /hpf 5-10 [facility] Thin prep Papanicolaou smear with manual screeningOrdered By: Dr. Chan on 06-06-2022 Thin prep Papanicolaou smear with manual screening 16 U/L 15-37 [facility] Thin prep Papanicolaou smear with manual screening 9 5-15 [facility] Urine blood detectionOrdered By: Dr. Chan on 06-06-2022 RBC Ql (U) Negative Negative [facility] RBC Ql (U) 0 SEEN /hpf 0-5 [facility] Urine clarityOrdered By: Dr. Chan on 06-06-2022 Clarity (U) Clear Clear [facility] Urine color determinationOrd ered By: Dr. Chan on 06-06-2022 Color (U) Yellow Yellow [facility] Urine glucose detectionOrder ed By: Dr. Chan on 06-06-2022 Glucose Ql (U) Normal mg/dl Normal [facility] Urine leukocyte esterase det ection by dipstickOrdered By: Dr. Chan on 06-06-2022 Leukocyte esterase Test strip Ql (U) 100 /ul Negative [facility] Urine pHOrdered By: Dr. Giron 06-06-2022 pH (U) 6.0 [pH] 5.0 - 8.0 [facility] Urine sediment bacteria coun t by microscopy (number/high power field)Ordered By: Dr. Chan on 06-06-2022 Bacteria LM.HPF (Urine sed) [#/Area] 0 /[HPF] None Seen [facility] Urine specific gravity measu rementOrdered By: Dr. Chan on 06-06-2022 Specific gravity (U) [Rel density] 1.020 1.002-1.030 [facility] Urobilinogen Auto test strip Ql (U)Ordered By: Dr. Chan on 06-06-2022 Urobilinogen Ql (U) Normal mg/dl Normal [facility] Laboratory - Microbiology an d Antimicrobial susceptibilityOrdered By: Dr. Garcia on 05-06-2022 SARS-CoV-2 (COVID-19) RNA GERONIMO+probe Ql (Unsp spec) Not detected Not Detect [facility] Comment on above: Normal Reference Ran ge: [...] Auto (Unsp spec) [#/Vol] 1.49 10*3/uL 0.83-4.51 [facility] Basophil percentageOrdered B y: Dr. Garcia on 03-14-2022 Basophil percentage 0 SEEN /hpf 0-[address] [facility] Basophils/100 WBC (Bld) 0.3 % 0-1 [facility] Bilirubin [Mass/Vol] 0.30 mg/dL 0.20-1.[address] [facility] Comment on above: For patients on eltr ombopag therapy, use of Dimension Viola TBIL is not recommended. Chloride [Moles/Vol] 108 mmol/L 98-[address] [facility] Eosinophils/100 WBC (Bld) 1.5 % 0-5 [facility] Glucose [Mass/Vol] 125 mg/dL 74-106 [facility] Comment on above: Fasting Glucose resu lt from 100 to 125 mg/dL suggests IMPAIRED HOMEOSTASIS per A.D.A. criteria. Lactate [Moles/Vol] 3.2 mmol/L 0.4-2.0 [facility] Comment on above: Critical Result(s) C alled at: 18:20:28 03/14/2022 by: tommy PHILLIPS RN ED. Results read back by same. Neutrophils (Bld) [#/Vol] 4.0 10*3/uL 2.0-7.7 [facility] Neutrophils/100 WBC (Bld) 66.8 % 47-70 [facility] Potassium [Moles/Vol] 4.1 mmol/L 3.5-5.1 [facility] Protein [Mass/Vol] 7.5 g/dL 6.4-8.2 [facility] Sodium [Moles/Vol] 141 mmol/L 136-145 [facility] WBC (Bld) [#/Vol] 6.0 10*3/uL 4.4-11.0 [facility] Bilirubin Test strip Ql (U)O rdered By: Dr. Garcia on 03-14-2022 Bilirubin Ql (U) Negative Negative [facility] Blood erythrocytes count (nu mber/volume)Ordered By: Dr. Garcia on 03-14-2022 RBC (Bld) [#/Vol] 3.71 10*6/uL 4.2-5.4 [facility] Blood hemoglobin measurement (mass/volume)Ordered By: Dr. Garcia on 03-14-2022 Hemoglobin (Bld) [Mass/Vol] 11.6 g/dL 12.0-15.0 [facility] Blood lymphocytes/100 leukoc ytesOrdered By: Dr. Garcia on 03-14-2022 Lymphocytes/100 WBC (Bld) 24.8 % 19-41 [facility] Blood monocytes/100 leukocyt esOrdered By: Dr. Garcia on 03-14-2022 Monocytes/100 WBC (Bld) 6.3 % 0-10 [facility] Blood platelet mean volumeOr dered By: Dr. Garcia on 03-14-2022 Platelet mean volume (Bld) [Entitic vol] 9.9 fL 6.2-12.0 [facility] Determination of erythrocyte mean corpuscular volume (MCV)Ordered By: Dr. Garcia on 03-14-2022 MCV (RBC) [Entitic vol] 96.2 fL 81-99 [facility] Hematocrit Auto (Bld) [Volum e fraction]Ordered By: Dr. Garcia on 03-14-2022 Hematocrit (Bld) [Volume fraction] 35.7 % 37-47 [facility] Ketones Test strip Ql (U)Ord ered By: Dr. Garcia on 03-14-2022 Ketones Ql (U) 15 mg/dl Negative [facility] - Chemistry and C hemistry - challengeOrdered By: Dr. Garcia on 03-14-2022 ALP [Catalytic activity/Vol] 84 U/L 45-117 [facility] ALT [Catalytic activity/Vol] 32 U/L 13-56 [facility] CO2 [Moles/Vol] 25.0 mmol/L 21.0-32.0 [facility] Globulin (S) [Mass/Vol] 4.2 g/dL 2.2-4.2 [facility] Urea nitrogen/Creatinine [Mass ratio] 22.6 mg/mg 10-20 [facility] - Hematology and Cell countsOrdered By: Dr. Garcia on 03-14-2022 Erythrocyte distribution width (RBC) [Entitic vol] 47.1 fL 35.1-43.9 [facility] Erythrocyte distribution width (RBC) [Ratio] 13.2 % 11.6-14.6 [facility] Immature granulocytes/100 WBC (Bld) 0.300 % 0.0-0.9 [facility] Comment on above: IG% - Immature Granu locytes (promyelocytes, myelocytes and metamyelocytes) > 1% indicates that a LEFT SHIFT is Present. MCH (RBC) [Entitic mass] 31.3 pg 27.0-32.0 [facility] Nucleated RBC/100 WBC (Bld) [Ratio] 0 % 0-5 [facility] MCHC Auto (RBC) [Mass/Vol]Or dered By: Dr. Garcia on 03-14-2022 MCHC (RBC) [Mass/Vol] 32.5 g/dL 32-36 [facility] Mucus LM Ql (Urine sed)Order ed By: Dr. Garcia on 03-14-2022 Mucus Ql (Urine sed) 0 SEEN /hpf [facility] Nitrite Test strip Ql (U)Ord ered By: Dr. Garcia on 03-14-2022 Nitrite Ql (U) Negative Negative [facility] No Panel InformationOrdered By: Dr. Garcia on 03-14-2022 Estimated Creatinine Clearance Calc 45.15 ml/min [facility] Estimated GFR (MDRD) Amer 77 mL/min >60 [facility] Comment on above: GFR Calc Estimated GFR (MDRD) Non-Af Amer 64 mL/min >60 [facility] Comment on above: Non- GFR Calc Troponin I High Sensitivity 18 pg/mL 3.0-54.0 [facility] Comment on above: Please Note: New Gnia t Units and Gender Specific Reference Ranges. For more information see Policy Stat Procedure [place] High Sensitivity Troponin (TNIH) and attachments. Valproic Acid (Depakene) Level 42 ug/mL 50-100 [facility] Platelets bldOrdered By: Dr. Garcia on 03-14-2022 Platelets (Bld) [#/Vol] 233 10*3/uL 150-450 [facility] Protein Test strip Ql (U)Ord ered By: Dr. Garcia on 03-14-2022 Protein Ql (U) 15 mg/dl Negative [facility] Serum or plasma albumin loretta urement (mass/volume)Ordered By: Dr. Garcia on 03-14-2022 Albumin [Mass/Vol] 3.3 g/dL 3.2-5.0 [facility] Serum or plasma albumin/glob ulin mass ratioOrdered By: Dr. Garcia on 03-14-2022 Albumin/Globulin [Mass ratio] 0.8 {ratio} 0.9-2.4 [facility] Serum or plasma calcium loretta urement (mass/volume)Ordered By: Dr. Garcia on 03-14-2022 Calcium [Mass/Vol] 9.2 mg/dL 8.5-10.1 [facility] Serum or plasma creatinine m easurement (mass/volume)Ordered By: Dr. Garcia on 03-14-2022 Creatinine [Mass/Vol] 0.93 mg/dL 0.55-1.02 [facility] Comment on above: The validity of the calculated GFR & GFRAA in patients over 70 years has not been determined. Clinical correlation is essential. Serum or plasma urea nitroge n measurement (mass/volume)Ordered By: Dr. Garcia on 03-14-2022 Urea nitrogen [Mass/Vol] 21 mg/dL 7-18 [facility] Squamous epithelial cells de tection in urine sediment by light microscopyOrdered By: Dr. Garcia on 03-14-2022 Epithelial cells.squamous LM Ql (Urine sed) 0-5 SEEN /hpf 5-10 [facility] Thin prep Papanicolaou smear with manual screeningOrdered By: Dr. Garcia on 03-14-2022 Thin prep Papanicolaou smear with manual screening 21 U/L 15-37 [facility] Thin prep Papanicolaou smear with manual screening 8 5-15 [facility] Urine blood detectionOrdered By: Dr. Garcia on 03-14-2022 RBC Ql (U) Negative Negative [facility] RBC Ql (U) 0 SEEN /hpf 0-5 [facility] Urine clarityOrdered By: Dr. Garcia on 03-14-2022 Clarity (U) Clear Clear [facility] Urine color determinationOrd ered By: Dr. Garcia on 03-14-2022 Color (U) Yellow Yellow [facility] Urine glucose detectionOrder ed By: Dr. Garcia on 03-14-2022 Glucose Ql (U) Normal mg/dl Normal [facility] Urine leukocyte esterase det ection by dipstickOrdered By: Dr. Garcia on 03-14-2022 Leukocyte esterase Test strip Ql (U) Negative Negative [facility] Urine pHOrdered By: Dr. Jonathan ryan on 03-14-2022 pH (U) 7.0 [pH] 5.0 - 8.0 [facility] Urine sediment bacteria coun t by microscopy (number/high power field)Ordered By: Dr. Garcia on 03-14-2022 Bacteria LM.HPF (Urine sed) [#/Area] 0 /[HPF] None Seen [facility] Urine specific gravity measu rementOrdered By: Dr. Garcia on 03-14-2022 Specific gravity (U) [Rel density] 1.015 1.002-1.030 [facility] Urobilinogen Auto test strip Ql (U)Ordered By: Dr. Garcia on 03-14-2022 Urobilinogen Ql (U) Normal mg/dl Normal [facility] Absolute lymphocyte counton 01-10-2022 Lymphocytes Auto (Unsp spec) [#/Vol] 1.45 10*3/uL 0.83-4.51 [facility] Work Phone: Basophil percentageon 2021 Basophils/100 WBC (Bld) 0.3 % 0-1 [facility] Work Phone: Bilirubin [Mass/Vol] 0.50 mg/dL 0.20-1.[address] [facility] Work Phone: Comment on above: For patients on eltr ombopag therapy, use of Dimension Viola TBIL is not recommended. Chloride [Moles/Vol] 106 mmol/L 98-[address] [facility] Work Phone: Cholesterol [Mass/Vol] 195 mg/dL <200 [facility] Work Phone: Comment on above: <200 mg/dL Desirable 200-240 mg/dL Borderline >240 mg/dL High Risk Eosinophils/100 WBC (Bld) 2.9 % 0-5 [facility] Work Phone: Glucose [Mass/Vol] 124 mg/dL 74-106 [facility] Work Phone: Comment on above: Fasting Glucose resu lt from 100 to 125 mg/dL suggests IMPAIRED HOMEOSTASIS per A.D.A. criteria. Neutrophils (Bld) [#/Vol] 2.0 10*3/uL 2.0-7.7 [facility] Work Phone: Neutrophils/100 WBC (Bld) 52.1 % 47-70 [facility] Work Phone: Potassium [Moles/Vol] 4.1 mmol/L 3.5-5.1 [facility] Work Phone: Protein [Mass/Vol] 7.8 g/dL 6.4-8.2 [facility] Work Phone: Sodium [Moles/Vol] 141 mmol/L 136-145 [facility] Work Phone: Triglyceride [Mass/Vol] 92 mg/dL <199 [facility] Work Phone: Comment on above: The drugs N-Acetylcy steine and Metamizole may falsely depress this assay.Serum Triglycerides Reference Interval Normal <150 mg/dL Borderline high 150 - 199 mg/dL High 200 - 499 mg/dL Very High > or = 500 mg/dL WBC (Bld) [#/Vol] 3.8 10*3/uL 4.4-11.0 [facility] Work Phone: Blood erythrocytes count (nu mber/volume)on 01-10-2022 RBC (Bld) [#/Vol] 3.90 10*6/uL 4.2-5.4 [facility] Work Phone: Blood hemoglobin measurement (mass/volume)on 01-10-2022 Hemoglobin (Bld) [Mass/Vol] 12.5 g/dL 12.0-15.0 [facility] Work Phone: Blood lymphocytes/100 leukoc yteson 01-10-2022 Lymphocytes/100 WBC (Bld) 37.9 % 19-41 [facility] Work Phone: Blood monocytes/100 leukocyt eson 01-10-2022 Monocytes/100 WBC (Bld) 6.5 % 0-10 [facility] Work Phone: Blood platelet mean volumeon 01-10-2022 Platelet mean volume (Bld) [Entitic vol] 11.1 fL 6.2-12.0 [facility] Work Phone: Determination of erythrocyte mean corpuscular volume (MCV)on 01-10-2022 MCV (RBC) [Entitic vol] 96.4 fL 81-99 [facility] Work Phone: Hematocrit Auto (Bld) [Volum e fraction]on 01-10-2022 Hematocrit (Bld) [Volume fraction] 37.6 % 37-47 [facility] Work Phone: Laboratory - Chemistry and C hemistry - challengeon 01-10-2022 ALP [Catalytic activity/Vol] 87 U/L 45-117 [facility] Work Phone: ALT [Catalytic activity/Vol] 28 U/L 13-56 [facility] Work Phone: CO2 [Moles/Vol] 29.0 mmol/L 21.0-32.0 [facility] Work Phone: Globulin (S) [Mass/Vol] 4.2 g/dL 2.2-4.2 [facility] Work Phone: Urea nitrogen/Creatinine [Mass ratio] 22.6 mg/mg 10-20 [facility] Work Phone: Laboratory - Hematology and Cell countson 01-10-2022 Erythrocyte distribution width (RBC) [Entitic vol] 48.9 fL 35.1-43.9 [facility] Work Phone: Erythrocyte distribution width (RBC) [Ratio] 13.7 % 11.6-14.6 [facility] Work Phone: Immature granulocytes/100 WBC (Bld) 0.300 % 0.0-0.9 [facility] Work Phone: Comment on above: IG% - Immature Granu locytes (promyelocytes, myelocytes and metamyelocytes) > 1% indicates that a LEFT SHIFT is Present. MCH (RBC) [Entitic mass] 32.1 pg 27.0-32.0 [facility] Work Phone: Nucleated RBC/100 WBC (Bld) [Ratio] 0 % 0-5 [facility] Work Phone: MCHC Auto (RBC) [Mass/Vol]on 01-10-2022 MCHC (RBC) [Mass/Vol] 33.2 g/dL 32-36 [facility] Work Phone: No Panel Informationon 01-10 Estimated GFR (MDRD) Amer 77 mL/min >60 [facility] Work Phone: Comment on above: GFR Calc Estimated GFR (MDRD) Non-Af Amer 64 mL/min >60 [facility] Work Phone: Comment on above: Non- GFR Calc Urine Microalbumin/Creatinine Ratio 7.3 mg/g CRE <30 [facility] Work Phone: Platelets bldon 01-10-2022 Platelets (Bld) [#/Vol] 210 10*3/uL 150-450 [facility] Work Phone: Serum or plasma albumin loretta urement (mass/volume)on 01-10-2022 Albumin [Mass/Vol] 3.6 g/dL 3.2-5.0 [facility] Work Phone: Serum or plasma albumin/glob ulin mass ratioon 01-10-2022 Albumin/Globulin [Mass ratio] 0.9 {ratio} 0.9-2.4 [facility] Work Phone: Serum or plasma calcium loretta urement (mass/volume)on 01-10-2022 Calcium [Mass/Vol] 9.6 mg/dL 8.5-10.1 [facility] Work Phone: Serum or plasma cholesterol in HDL measurement (mass/volume)on 01-10-2022 Cholesterol in HDL [Mass/Vol] 53 mg/dL >40 [facility] Work Phone: Comment on above: The drugs N-Acetylcy steine and Metamizole may falsely depress this assay. Reference Range HDL <40 mg/dL Low HDL Cholesterol HDL >or= 60 mg/dL High HDL Cholesterol Serum or plasma cholesterol in VLDL measurement (mass/volume)on 01-10-2022 Cholesterol in VLDL [Mass/Vol] 18 mg/dL 5-40 [facility] Work Phone: Serum or plasma creatinine m easurement (mass/volume)on 01-10-2022 Creatinine [Mass/Vol] 0.93 mg/dL 0.55-1.02 [facility] Work Phone: Comment on above: The validity of the calculated GFR & GFRAA in patients over 70 years has not been determined. Clinical correlation is essential. Serum or plasma low density lipoprotein (LDL) cholesterol measurement (mass/volume)on 01-10-2022 Cholesterol in LDL [Mass/Vol] 124 mg/dL 0-130 [facility] Work Phone: Serum or plasma urea nitroge n measurement (mass/volume)on 01-10-2022 Urea nitrogen [Mass/Vol] 21 mg/dL 7-18 [facility] Work Phone: Thin prep Papanicolaou smear with manual screeningon 01-10-2022 Thin prep Papanicolaou smear with manual screening 17 U/L 15-37 [facility] Work Phone: Thin prep Papanicolaou smear with manual screening 6 5-15 [facility] Work Phone: Thin prep Papanicolaou smear with manual screening 22.4 mg/L NO RANGE EST. [facility] Work Phone: Urine creatinine measurement (mass/volume)on 01-10-2022 Creatinine (U) [Mass/Vol] 308.00 mg/dL NO RANGE EST. [facility] Work Phone: Whole blood hemoglobin A1c/t otal hemoglobin ratio (mass fraction)on 01-10-2022 HbA1c (Bld) [Mass fraction] 7.3 % 3.8-5.6 [facility] Work Phone: Comment on above: Normal < 5.7 % Predi abetic 5.7 - 6.4 % Diabetic >or= 6.5 % Please note range changes. Absolute lymphocyte counton 01-03-2022 Lymphocytes Auto (Unsp spec) [#/Vol] 2.28 10*3/uL 0.83-4.51 [facility] Work Phone: Basophil percentageon 2021 Basophils/100 WBC (Bld) 0.6 % 0-1 [facility] Work Phone: Bilirubin [Mass/Vol] 0.20 mg/dL 0.20-1.[address] [facility] Work Phone: Comment on above: For patients on eltr ombopag therapy, use of Dimension Viola TBIL is not recommended. Chloride [Moles/Vol] 110 mmol/L 98-[address] [facility] Work Phone: [phone] Eosinophils/100 WBC (Bld) 3.1 % 0-5 [facility] Work Phone: [phone] Glucose [Mass/Vol] 154 mg/dL 74-106 [facility] Work Phone: Comment on above: Fasting Glucose resu lt greater than or equal to 126 mg/dL suggests DIABETES MELLITUS per A.D.A. criteria. Neutrophils (Bld) [#/Vol] 2.2 10*3/uL 2.0-7.7 [facility] Work Phone: Neutrophils/100 WBC (Bld) 44.8 % 47-70 [facility] Work Phone: Potassium [Moles/Vol] 3.8 mmol/L 3.5-5.1 [facility] Work Phone: Protein [Mass/Vol] 6.0 g/dL 6.4-8.2 [facility] Work Phone: Sodium [Moles/Vol] 141 mmol/L 136-145 [facility] Work Phone: WBC (Bld) [#/Vol] 4.9 10*3/uL 4.4-11.0 [facility] Work Phone: Blood erythrocytes count (nu mber/volume)on 01-03-2022 RBC (Bld) [#/Vol] 3.20 10*6/uL 4.2-5.4 [facility] Work Phone: Blood hemoglobin measurement (mass/volume)on 01-03-2022 Hemoglobin (Bld) [Mass/Vol] 10.1 g/dL 12.0-15.0 [facility] Work Phone: Blood lymphocytes/100 leukoc yteson 01-03-2022 Lymphocytes/100 WBC (Bld) 46.4 % 19-41 [facility] Work Phone: Blood monocytes/100 leukocyt eson 01-03-2022 Monocytes/100 WBC (Bld) 4.9 % 0-10 [facility] Work Phone: Blood platelet mean volumeon 01-03-2022 Platelet mean volume (Bld) [Entitic vol] 10.8 fL 6.2-12.0 [facility] Work Phone: Determination of erythrocyte mean corpuscular volume (MCV)on 01-03-2022 MCV (RBC) [Entitic vol] 97.2 fL 81-99 [facility] Work Phone: Glucose Glucometer (BldC) [M ass/Vol]on 01-03-2022 Glucose [Mass/Vol] 107 mg/dL 74-106 [facility] Work Phone: Comment on above: MANAGEMENT OF PATIEN T CARE PER NURSING PROTOCOL Hematocrit Auto (Bld) [Volum e fraction]on 01-03-2022 Hematocrit (Bld) [Volume fraction] 31.1 % 37-47 [facility] Work Phone: Laboratory - Chemistry and C hemistry - challengeon 01-03-2022 ALP [Catalytic activity/Vol] 83 U/L 45-117 [facility] Work Phone: ALT [Catalytic activity/Vol] 23 U/L 13-56 [facility] Work Phone: CO2 [Moles/Vol] 26.0 mmol/L 21.0-32.0 [facility] Work Phone: Globulin (S) [Mass/Vol] 3.4 g/dL 2.2-4.2 [facility] Work Phone: Urea nitrogen/Creatinine [Mass ratio] 22.9 mg/mg 10-20 [facility] Work Phone: Laboratory - Hematology and Cell countson 01-03-2022 Erythrocyte distribution width (RBC) [Entitic vol] 48.3 fL 35.1-43.9 [facility] Work Phone: Erythrocyte distribution width (RBC) [Ratio] 13.4 % 11.6-14.6 [facility] Work Phone: Immature granulocytes/100 WBC (Bld) 0.200 % 0.0-0.9 [facility] Work Phone: Comment on above: IG% - Immature Granu locytes (promyelocytes, myelocytes and metamyelocytes) > 1% indicates that a LEFT SHIFT is Present. MCH (RBC) [Entitic mass] 31.6 pg 27.0-32.0 [facility] Work Phone: Nucleated RBC/100 WBC (Bld) [Ratio] 0 % 0-5 [facility] Work Phone: MCHC Auto (RBC) [Mass/Vol]on 01-03-2022 MCHC (RBC) [Mass/Vol] 32.5 g/dL 32-36 [facility] Work Phone: No Panel Informationon 01-03 Estimated Creatinine Clearance Calc 50.59 ml/min [facility] Work Phone: Estimated GFR (MDRD) Amer 88 mL/min >60 [facility] Work Phone: Comment on above: GFR Calc Estimated GFR (MDRD) Non-Af Amer 73 mL/min >60 [facility] Work Phone: Comment on above: Non- GFR Calc Platelets bldon 01-03-2022 Platelets (Bld) [#/Vol] 181 10*3/uL 150-450 [facility] Work Phone: Serum or plasma albumin loretta urement (mass/volume)on 01-03-2022 Albumin [Mass/Vol] 2.6 g/dL 3.2-5.0 [facility] Work Phone: Serum or plasma albumin/glob ulin mass ratioon 01-03-2022 Albumin/Globulin [Mass ratio] 0.8 {ratio} 0.9-2.4 [facility] Work Phone: Serum or plasma calcium loretta urement (mass/volume)on 01-03-2022 Calcium [Mass/Vol] 8.0 mg/dL 8.5-10.1 [facility] Work Phone: Serum or plasma creatinine m easurement (mass/volume)on 01-03-2022 Creatinine [Mass/Vol] 0.83 mg/dL 0.55-1.02 [facility] Work Phone: Comment on above: The validity of the calculated GFR & GFRAA in patients over 70 years has not been determined. Clinical correlation is essential. Serum or plasma urea nitroge n measurement (mass/volume)on 01-03-2022 Urea nitrogen [Mass/Vol] 19 mg/dL 7-18 [facility] Work Phone: Thin prep Papanicolaou smear with manual screeningon 01-03-2022 Thin prep Papanicolaou smear with manual screening 15 U/L 15-37 [facility] Work Phone: Thin prep Papanicolaou smear with manual screening 5 5-15 [facility] Work Phone: No Panel Informationon 01-02 Troponin I High Sensitivity 5 pg/mL 3.0-54.0 [facility] Work Phone: Comment on above: Please Note: New Gina t Units and Gender Specific Reference Ranges. For more information see Policy Stat Procedure Viola High Sensitivity Troponin (TNIH) and attachments. D-Dimer Quantitative (PE/DVT) 0.57 FEU/ug/m 0.27-0.49 [facility] Work Phone: Comment on above: D-Dimer ELEVATED (>0 .49): Additional studies and clinicalassessments are indicated to conclude diagnosis of:Deep Vein Thrombosis (DVT) or Pulmonary Embolism (PE)CRITICAL VALUE VERIFIED. CALLED TO NIDIA COLLINS (ER)01/02/22 0839 Mynor James.RESULTS READ BACK BY SAME. Basophil percentageon 2021 Basophil percentage 0-5 SEEN /hpf 0-5 [facility] Work Phone: Bilirubin Test strip Ql (U)o n 12-17-2021 Bilirubin Ql (U) Negative Negative [facility] Work Phone: Ketones Test strip Ql (U)on 12-17-2021 Ketones Ql (U) Negative Negative [facility] Work Phone: Mucus LM Ql (Urine sed)on Mucus Ql (Urine sed) RARE /hpf [facility] Work Phone: Nitrite Test strip Ql (U)on 12-17-2021 Nitrite Ql (U) Negative Negative [facility] Work Phone: Protein Test strip Ql (U)on 12-17-2021 Protein Ql (U) Negative Negative [facility] Work Phone: Squamous epithelial cells de tection in urine sediment by light microscopyon 12-17-2021 Epithelial cells.squamous LM Ql (Urine sed) 0-5 SEEN /hpf 5-10 [facility] Work Phone: Urine blood detectionon 12-02 RBC Ql (U) Negative Negative [facility] Work Phone: RBC Ql (U) 0 SEEN /hpf 0-5 [facility] Work Phone: Urine clarityon 12-17-2021 Clarity (U) Clear Clear [facility] Work Phone: Urine color determinationon 12-17-2021 Color (U) Yellow Yellow [facility] Work Phone: Urine glucose detectionon Glucose Ql (U) Normal mg/dl Normal [facility] Work Phone: Urine leukocyte esterase det ection by dipstickon 12-17-2021 Leukocyte esterase Test strip Ql (U) 100 /ul Negative [facility] Work Phone: Urine pHon 12-17-2021 pH (U) 8.0 [pH] 5.0 - 8.0 [facility] Work Phone: Urine sediment bacteria coun t by microscopy (number/high power field)on 12-17-2021 Bacteria LM.HPF (Urine sed) [#/Area] 1 /[HPF] None Seen [facility] Work Phone: Urine specific gravity measu rementon 12-17-2021 Specific gravity (U) [Rel density] 1.015 1.002-1.030 [facility] Work Phone: Urobilinogen Auto test strip Ql (U)on 12-17-2021 Urobilinogen Ql (U) 1 mg/dl Normal [facility] Work Phone: Laboratory - Hematology and Cell countson 11-06-2021 HbA1c (Bld) [Mass fraction] 7.2 % 4.2-6.3 [facility] Work Phone: Absolute lymphocyte counton 10-25-2021 Lymphocytes Auto (Unsp spec) [#/Vol] 2.55 10*3/uL 0.83-4.51 [facility] Work Phone: Basophil percentageon 2021 Basophils/100 WBC (Bld) 0.5 % 0-1 [facility] Work Phone: Bilirubin [Mass/Vol] 0.20 mg/dL 0.20-1.[address] [facility] Work Phone: Comment on above: For patients on eltr ombopag therapy, use of Dimension Viola TBIL is not recommended. Chloride [Moles/Vol] 105 mmol/L 98-[address] [facility] Work Phone: Eosinophils/100 WBC (Bld) 2.1 % 0-5 [facility] Work Phone: Glucose [Mass/Vol] 188 mg/dL 74-106 [facility] Work Phone: Comment on above: Fasting Glucose resu lt greater than or equal to 126 mg/dL suggests DIABETES MELLITUS per A.D.A. criteria. Neutrophils (Bld) [#/Vol] 3.5 10*3/uL 2.0-7.7 [facility] Work Phone: Neutrophils/100 WBC (Bld) 52.9 % 47-70 [facility] Work Phone: Potassium [Moles/Vol] 4.0 mmol/L 3.5-5.1 [facility] Work Phone: Protein [Mass/Vol] 7.6 g/dL 6.4-8.2 [facility] Work Phone: Sodium [Moles/Vol] 138 mmol/L 136-145 [facility] Work Phone: WBC (Bld) [#/Vol] 6.6 10*3/uL 4.4-11.0 [facility] Work Phone: Blood erythrocytes count (nu mber/volume)on 10-25-2021 RBC (Bld) [#/Vol] 4.16 10*6/uL 4.2-5.4 [facility] Work Phone: Blood hemoglobin measurement (mass/volume)on 10-25-2021 Hemoglobin (Bld) [Mass/Vol] 13.0 g/dL 12.0-15.0 [facility] Work Phone: Blood lymphocytes/100 leukoc yteson 10-25-2021 Lymphocytes/100 WBC (Bld) 38.4 % 19-41 [facility] Work Phone: Blood monocytes/100 leukocyt eson 10-25-2021 Monocytes/100 WBC (Bld) 5.9 % 0-10 [facility] Work Phone: Blood platelet mean volumeon 10-25-2021 Platelet mean volume (Bld) [Entitic vol] 10.6 fL 6.2-12.0 [facility] Work Phone: Determination of erythrocyte mean corpuscular volume (MCV)on 10-25-2021 MCV (RBC) [Entitic vol] 95.4 fL 81-99 [facility] Work Phone: Hematocrit Auto (Bld) [Volum e fraction]on 10-25-2021 Hematocrit (Bld) [Volume fraction] 39.7 % 37-47 [facility] Work Phone: Laboratory - Chemistry and C hemistry - challengeon 10-25-2021 ALP [Catalytic activity/Vol] 92 U/L 45-117 [facility] Work Phone: ALT [Catalytic activity/Vol] 33 U/L 13-56 [facility] Work Phone: CO2 [Moles/Vol] 27.0 mmol/L 21.0-32.0 [facility] Work Phone: Globulin (S) [Mass/Vol] 4.1 g/dL 2.2-4.2 [facility] Work Phone: Lipase [Catalytic activity/Vol] 89 U/L 73-393 [facility] Work Phone: Urea nitrogen/Creatinine [Mass ratio] 20.7 mg/mg 10-20 [facility] Work Phone: Laboratory - Hematology and Cell countson 10-25-2021 Erythrocyte distribution width (RBC) [Entitic vol] 46.5 fL 35.1-43.9 [facility] Work Phone: Erythrocyte distribution width (RBC) [Ratio] 13.1 % 11.6-14.6 [facility] Work Phone: Immature granulocytes/100 WBC (Bld) 0.200 % 0.0-0.9 [facility] Work Phone: Comment on above: IG% - Immature Granu locytes (promyelocytes, myelocytes and metamyelocytes) > 1% indicates that a LEFT SHIFT is Present. MCH (RBC) [Entitic mass] 31.3 pg 27.0-32.0 [facility] Work Phone: Nucleated RBC/100 WBC (Bld) [Ratio] 0 % 0-5 [facility] Work Phone: MCHC Auto (RBC) [Mass/Vol]on 10-25-2021 MCHC (RBC) [Mass/Vol] 32.7 g/dL 32-36 [facility] Work Phone: No Panel Informationon 10-25 Estimated Creatinine Clearance Calc 46.29 ml/min [facility] Work Phone: Estimated GFR (MDRD) Amer 78 mL/min >60 [facility] Work Phone: Comment on above: GFR Calc Estimated GFR (MDRD) Non-Af Amer 64 mL/min >60 [facility] Work Phone: Comment on above: Non- GFR Calc Troponin I High Sensitivity < 3 pg/mL 3.0-54.0 [facility] Work Phone: Comment on above: Please Note: New Gina t Units and Gender Specific Reference Ranges. For more information see Policy Stat Procedure [place]ola High Sensitivity Troponin (TNIH) and attachments. Platelets bldon 10-25-2021 Platelets (Bld) [#/Vol] 223 10*3/uL 150-450 [facility] Work Phone: Serum or plasma albumin loretta urement (mass/volume)on 10-25-2021 Albumin [Mass/Vol] 3.5 g/dL 3.2-5.0 [facility] Work Phone: Serum or plasma albumin/glob ulin mass ratioon 10-25-2021 Albumin/Globulin [Mass ratio] 0.9 {ratio} 0.9-2.4 [facility] Work Phone: Serum or plasma calcium loretta urement (mass/volume)on 10-25-2021 Calcium [Mass/Vol] 9.1 mg/dL 8.5-10.1 [facility] Work Phone: Serum or plasma creatinine m easurement (mass/volume)on 10-25-2021 Creatinine [Mass/Vol] 0.92 mg/dL 0.55-1.02 [facility] Work Phone: Comment on above: The validity of the calculated GFR & GFRAA in patients over 70 years has not been determined. Clinical correlation is essential. Serum or plasma urea nitroge n measurement (mass/volume)on 10-25-2021 Urea nitrogen [Mass/Vol] 19 mg/dL 7-18 [facility] Work Phone: Thin prep Papanicolaou smear with manual screeningon 10-25-2021 Thin prep Papanicolaou smear with manual screening 22 U/L 15-37 [facility] Work Phone: Thin prep Papanicolaou smear with manual screening 6 5-15 [facility] Work Phone: PROGRESSon 06-03-2018 Protein mass conc HNO ID: [id number] Author: Tila (Pt) Jenelle Service: (none) Author Type: Physical Therapist Type: Progress Notes Filed: 06/03/2018 12:16 PM Note Text: 06/03/2018 [facility] PHYSICAL THERAPY DISCONTINUANCE OF CARE Plan of Care Period: Start of Care Date: 01/05/18 Last Visit Date: 02/25/18 Therapy Program: The following is a summary of the interventions provided for this episode of care; Therapeutic exercise, Neuromuscular re-education, Manual therapy, Patient/Family/Caregiver Education and Modalities: Ultrasound Assessment: The following is the goal status: Goals updated on 02/04/2018. [place] in home exercise program.--MET for current HEP [...] or scheduled additional follow-up appointments. NAVNEET Posada [facility] CNTHERAPYon 02-25-2018 CNTHERAPY OT/PT/Speech Visit (PTWS) -------- LACY ALVARADO ([id number]) 1950 F Date Time Provider Department 02/25/18 7:00 AM TILA ALMANZAR (PT) PTWS Date Time Provider Department Center 02/25/2018 7:00 AM [id number], DIANA (PT)PTWS [facility] Reason for Visit: Physical Therapy [...] CAPSULE,MANDIE* Take 1 capsule by mouth twice* [id number] * Use 3 Drops in the [...] throughout treatment. Billing: [facility]: Therapeutic Exercise (85356): 1:1 time: 36 minutes (2 units: 23-37 mins) Modalities Ultrasound (51742) 1:1 time: 8 minutes1 unit: 8-22 mins Total time: 44 minutes Tila Almanzar, PT Tila Almanzar, PT 06/03/2018 12:16 PM Signed 06/03/2018 [facility] PHYSICAL THERAPY DISCONTINUANCE OF CARE Plan of Care Period: Start of Care Date: 01/05/18 Last Visit Date: 02/25/18 Therapy Program: The following is a summary of the interventions provided for this episode of care; Therapeutic exercise, Neuromuscular re-education, Manual therapy, Patient/Family/Caregiver Education and Modalities: Ultrasound Assessment: The following is the goal status: Goals updated on 02/04/2018. [place] in home exercise program.--MET for current HEP [...] follow-up appointments. Tila Almanzar PT -------- Normal [facility] PROGRESSon 02-25-2018 Protein mass conc HNO ID: [id number] Author: Tila (Pt) Jenelle Service: (none) Author [...] needs. Patient response monitored throughout treatment. Billing: [facility]: Therapeutic Exercise (12035): 1:1 time: 36 minutes (2 units: 23-37 mins) Modalities Ultrasound (95022) 1:1 time: 8 minutes1 unit: 8-22 mins Total time: 44 minutes Tila Almanzar PT Normal [facility] CNOVon 02-22-2018 CNOV Office Visit (PODIWS ) -------- LACY ALVARADO ([id number]) 1950 F Date Time Provider Department 02/22/18 [...] comment (PT,) [facility] continues with 10/10 pain that [...] (H) 4.3 - 5.6 % Final Comment: [place] [employer] guidelines indicate that patients with [...] 81 MG TAB Take one(1) tablet daily. chvppjws-qvfadelvs-vqdsh cortisone (CORTISPORIN) otic solution Use 3 Drops [...] Mynor Flores DPM Referring Provider: MYNOR FLORES [[id number]] Allergies As of Date: 02/22/2018 Noted Allergy [...] [M76.61] Order(s):XR FOOT GENERAL 3V AP/LAT/OBL RT [[id number]] Order #: [id number] FUTURE MRI ANKLE WO IVCON RT [[id number]] Order #: [id number] FUTURE Prescriptions as of 02/22/2018 Sig: VERAPAMIL [...] 81 MG TABLET Take one(1) tablet daily. HBYREHPB-SXOVHEPYT-ETKXN NIRU * Use 3 Drops in the [...] by MYNOR FLORES DPM on 02/22/[address] [facility] 02-22-2018 Protein mass conc HNO ID: [id number] Author: John Paul Godinez (Rt) Service: (none) Author Type: Bulb Weeder Type: Progress Notes Filed: 02/22/2018 10:36 AM [...] Gretchen February 22, 2018 8:59 AM Normal [facility] Protein mass conc HNO ID: [id number] Author: Mynor Flores Service: (none) Author Type: [...] (H) 4.3 - 5.6 % Final Comment: [place] [employer] guidelines indicate that patients with [...] 81 MG TAB Take one(1) tablet daily. ufbqixjh-nqwhkksdd-tqoxo cortisone (CORTISPORIN) otic solution Use 3 Drops [...] low transverse - COLONOSCOP W/ OR W/O [facility] SPEC 01/12/2013 Colonoscopy - EGD W/O OR [...] interested in surgery. Mynor Flores DPM Normal [facility] Protein mass conc HNO ID: [id number] Author: Carmelita Limon RN Service: (none) Author [...] in the future, possibly next summer. Normal [facility] XR FEMUR 2V AP/LAT RTon 10- XR [...] DEGENERATIVE CHANGES IN THE HIP AND KNEE. Finance Admin: [employer] Transcribe Date/Time: Feb 22 2018 3:06P Dictated by : CHRIS FRANCIS MD This examination was interpreted and the report reviewed and electronically signed by: CHRIS FRANCIS MD on Feb 22 2018 3:15PM EST [id number] Normal [facility] XR FOOT 3V AP/LAT/OBL RTon [...] NO CHANGE COMPARED TO THE PREVIOUS EXAM. Finance Admin: RADHA Transcribe Date/Time: Feb 22 2018 3:15P Dictated by : CHRIS FRANCIS MD This examination was interpreted and the report reviewed and electronically signed by: CHRIS FRANCIS MD on Feb 22 2018 3:18PM EST [id number] Normal [facility] CNTHERAPYon 02-18-2018 CNTHERAPY OT/PT/Speech Visit (PTWS) -------- LACY ALVARADO ([id number]) 1950 F Date Time Provider Department 02/18/18 7:00 AM TILA ALMANZAR (PT) PTWS Date Time Provider Department Center 02/18/2018 7:00 AM [id number], DIANA (PT)PTWS [facility] Reason for Visit: Physical Therapy [...] CAPSULE,MANDIE* Take 1 capsule by mouth twice* YBRCPUEN-NXTPFXBIM-MXRWM NIRU * Use 3 Drops in the [...] needs. Patient response monitored throughout treatment. Billing: [facility]: Therapeutic Exercise (14007): 1:1 time: 35 minutes (2 units: 23-37 mins) Modalities Ultrasound (03529) 1:1 time: 8 minutes1 unit: 8-22 mins Total time: 43 minutes Tila Almanzar PT -------- Normal [facility] PROGRESSon 02-18-2018 Protein mass conc HNO ID: [id number] Author: Tila (Pt) Jenelle Service: (none) Author [...] needs. Patient response monitored throughout treatment. Billing: [facility]: Therapeutic Exercise (92775): 1:1 time: 35 minutes (2 units: 23-37 mins) Modalities Ultrasound (22626) 1:1 time: 8 minutes1 unit: 8-22 mins Total time: 43 minutes NAVNEET Posada [facility] CNTHERAPYon 02-11-2018 CNTHERAPY OT/PT/Speech Visit (PTWS) -------- LACY ALVARADO ([id number]) 1950 F Date Time Provider Department 02/11/18 7:45 AM TILA ALMANZAR (PT) PTWS Date Time Provider Department Center 02/11/2018 7:45 AM [id number], DIANA (PT)PTWS [facility] Reason for Visit: Physical Therapy [...] CAPSULE,MANDIE* Take 1 capsule by mouth twice* BPVEUVSN-CHQPPWVSS-EGAYR NIRU * Use 3 Drops in the [...] and compliance. Patient education as noted. Billing: [facility]: Therapeutic Exercise (35359): 1:1 time: 38 minutes (3 units: 38-52 mins) Total time: 38 minutes Tila Almanzar PT -------- [facility] 02-11-2018 Protein mass conc HNO ID: [id number] Author: Tila (Pt) Jenelle Service: (none) Author [...] and compliance. Patient education as noted. Billing: [facility]: Therapeutic Exercise (74128): 1:1 time: 38 minutes (3 units: 38-52 mins) Total time: 38 minutes Tila Almanzar PT Normal [facility] CNTHERAPYon 02-04-2018 CNTHERAPY OT/PT/Speech Visit (PTWS) -------- LACY ALVARADO ([id number]) 1950 F Date Time Provider Department 02/04/18 7:45 AM TILA ALMANZAR (PT) PTWS Date Time Provider Department Center 02/04/2018 7:45 AM [id number], DIANA (PT)PTWS [facility] Reason for Visit: PT Progress [...] CAPSULE,MANDIE* Take 1 capsule by mouth twice* YVIMIPNB-JECZGANFP-DWCYU NIRU * Use 3 Drops in the [...] intensity of pain Goals updated on 02/04/2018. [place] in home exercise program.--MET for current HEP [...] be seen for Therapeutic exercise;Neuromuscular re-education;Manual therapy;Therapeutic activities;Self-residential management;Gait Training;Patient/Family/ Caregiver Education;Modalities;Fun ctional training;General Conditioning [...] provided in selection of appropriate interventions. Billing: [facility]: Therapeutic Exercise (21337): 1:1 time: 20 minutes (1 unit: 8-22 mins) Total time: 20 minutes Tila Almanzar PT -------- Normal [facility] PROGRESSon 02-04-2018 Protein mass conc HNO ID: [id number] Author: Tila (Pt) Jenelle Service: (none) Author [...] intensity of pain Goals updated on 02/04/2018. [place] in home exercise program.--MET for current HEP [...] be seen for Therapeutic exercise;Neuromuscular re-education;Manual therapy;Therapeutic activities;Self-residential management;Gait Training;Patient/Family/ Caregiver Education;Modalities;Fun ctional training;General Conditioning [...] provided in selection of appropriate interventions. Billing: [facility]: Therapeutic Exercise (19581): 1:1 time: 20 minutes (1 unit: 8-22 mins) Total time: 20 minutes Tila Almanzar PT Normal [facility] CNTHERAPYon 02-02-2018 CNTHERAPY OT/PT/Speech Visit (PTWS) -------- LACY ALVARADO ([id number]) 1950 F Date Time Provider Department 02/02/18 7:45 AM TILA ALMANZAR (PT) PTWS Date Time Provider Department Center 02/02/2018 7:45 AM [id number], DIANA (PT)PTWS [facility] Reason for Visit: Physical Therapy [...] CAPSULE,MANDIE* Take 1 capsule by mouth twice* UJBDNYQS-FURSSLXBT-IEKDG NIRU * Use 3 Drops in the [...] Manual Therapy: 1: Prone: IASTM with [employer] Supervisor Scanner for 13 minutes to R achillies tendon Skilled Intervention: Manual skills to improve joint mobility, ROM, and decrease pain. Utilized anatomy knowledge of the therapist, and assessment of patient's response to intervention. Billing: [facility]: Therapeutic Exercise (46341): 1:1 time: 22 minutes (1 unit: 8-22 mins) Manual Therapy (41664): 1:1 time: 13 minutes (1 unit: 8-22 mins) Total time: 35 minutes Tila Almanzar PT -------- [facility] PRO[facility] 02-02-2018 Protein mass conc HNO ID: [id number] Author: Tila (Pt) Jenelle Service: (none) Author [...] Manual Therapy: 1: Prone: IASTM with [employer] Supervisor Scanner for 13 minutes to R achillies tendon Skilled Intervention: Manual skills to improve joint mobility, ROM, and decrease pain. Utilized anatomy knowledge of the therapist, and assessment of patient's response to intervention. Billing: [facility]: Therapeutic Exercise (56876): 1:1 time: 22 minutes (1 unit: 8-22 mins) Manual Therapy (15872): 1:1 time: 13 minutes (1 unit: 8-22 mins) Total time: 35 minutes Tila Almanzar PT Normal [facility] PROGRESSon 01-31-2018 Protein mass conc HNO ID: [id number] Author: Tila (Navneet) Jenelle Service: (none) Author [...] interventions. Manual Therapy: 1: Prone: IASTM with [employer] Scanner for 8 minutes to R achillies [...] needs. Patient response monitored throughout treatment. Billing: [facility]: Therapeutic Exercise (84960): 1:1 time: 20 minutes (2 units: 23-37 mins) Manual Therapy (40668): 1:1 time: 12 minutes (1 unit: 8-22 mins) Modalities Ultrasound (65546) 1:1 time: 10 minutes1 unit: 8-22 mins Total time: 42 minutes Tila Almanzar PT Normal [facility] CNTHERAPYon 01-28-2018 CNTHERAPY OT/PT/Speech Visit (PTWS) -------- LACY ALVARADO ([id number]) 1950 F Date Time Provider Department 01/28/18 7:45 AM TILA ALMANZAR (PT) PTWS Date Time Provider Department Center 01/28/2018 7:45 AM [id number], DIANA (PT)PTWS [facility] Reason for Visit: Physical Therapy [...] CAPSULE,MANDIE* Take 1 capsule by mouth twice* DHNNJUFK-CPIOTOWSA-NDPWY NIRU * Use 3 Drops in the [...] interventions. Manual Therapy: 1: Prone: IASTM with [employer] Supervisor Scanner for 8 minutes to R achillies [...] needs. Patient response monitored throughout treatment. Billing: [facility]: Therapeutic Exercise (47678): 1:1 time: 20 minutes (2 units: 23-37 mins) Manual Therapy (17270): 1:1 time: 12 minutes (1 unit: 8-22 mins) Modalities Ultrasound (19864) 1:1 time: 10 minutes1 unit: 8-22 mins Total time: 42 minutes Tila Almanzar PT -------- Normal [facility] PROGRESSon 01-27-2018 Protein mass conc HNO ID: [id number] Author: Tila Almanzar Service: (none) Author Type: [...] up she had not problems. Tried [employer] Supervisor scanner tool for IASTM and Kinesiotaping. Will assess at next session. The patient will continue to benefit from continued skilled physical therapy for thex ex, manual, and US for pain control of R heel pain. PLAN FOR NEXT VISIT: See how liked [employer] Supervisor tools and kinesiotape; BAPS Board for Ankle [...] Manual Therapy: 1: Prone: IASTM with [employer] Supervisor Scanner for 6 minutes to R achillies [...] needs. Patient response monitored throughout treatment. Billing: [facility]: Therapeutic Exercise (27028): 1:1 time: 20 minutes (1 unit: 8-22 mins) Manual Therapy (60720): 1:1 time: 15 minutes (1 unit: 8-22 mins) Modalities Ultrasound (06216) 1:1 time: 10 minutes1 unit: 8-22 mins Total time: 45 minutes NAVNEET Posada [facility] CNTHERAPYon 01-26-2018 CNTHERAPY OT/PT/Speech Visit (PTWS) -------- LACY ALVARADO ([id number]) 1950 F Date Time Provider Department 01/26/18 7:00 AM TILA ALMANZAR (PT) BK Date Time Provider Department Center 01/26/2018 7:00 AM [id number], DIANA (PT)PTWS [facility] Reason for Visit: Physical Therapy [...] CAPSULE,MANDIE* Take 1 capsule by mouth twice* RMNQWRKA-FNDNFWQVR-XPHZL NIRU * Use 3 Drops in the [...] up she had not problems. Tried [employer] Supervisor scanner tool for IASTM and Kinesiotaping. Will assess at next session. The patient will continue to benefit from continued skilled physical therapy for thex ex, manual, and US for pain control of R heel pain. PLAN FOR NEXT VISIT: See how liked [employer] Supervisor tools and kinesiotape; BAPS Board for Ankle [...] cuing. Manual Therapy: 1: Prone: IASTM with [employer] Scanner for 6 minutes to R achillies [...] needs. Patient response monitored throughout treatment. Billing: [facility]: Therapeutic Exercise (25858): 1:1 time: 20 minutes (1 unit: 8-22 mins) Manual Therapy (73925): 1:1 time: 15 minutes (1 unit: 8-22 mins) Modalities Ultrasound (79754) 1:1 time: 10 minutes1 unit: 8-22 mins Total time: 45 minutes Tila Almanzar PT -------- Normal [facility] PROGRESSon 01-24-2018 Protein mass conc HNO ID: [id number] Author: Tila (Pt) Jenelle Service: (none) Author [...] needs. Patient response monitored throughout treatment. Billing: [facility]: Therapeutic Exercise (60000): 1:1 time: 19 minutes (1 unit: 8-22 mins) Manual Therapy (54983): 1:1 time: 8 minutes (1 unit: 8-22 mins) Modalities Ultrasound (44850) 1:1 time: 15 minutes1 unit: 8-22 mins Total time: 42 minutes NAVNEET Posada [facility] CNTHERAPYon 01-21-2018 CNTHERAPY OT/PT/Speech Visit (PTWS) -------- LACY ALVARADO ([id number]) 1950 F Date Time Provider Department 01/21/18 7:45 AM TILA ALMANZAR (PT) PTJOCE Date Time Provider Department Center 01/21/2018 7:45 AM [id number], DIANA (PT)PTWS [facility] Reason for Visit: Physical Therapy [...] CAPSULE,MANDIE* Take 1 capsule by mouth twice* QDUKQSAX-JOGWOZQKE-XVCJW NIRU * Use 3 Drops in the [...] needs. Patient response monitored throughout treatment. Billing: [facility]: Therapeutic Exercise (29832): 1:1 time: 19 minutes (1 unit: 8-22 mins) Manual Therapy (97648): 1:1 time: 8 minutes (1 unit: 8-22 mins) Modalities Ultrasound (35672) 1:1 time: 15 minutes1 unit: 8-22 mins Total time: 42 minutes Tila Almanzar PT -------- Normal [facility] CNTHERAPYon 01-12-2018 CNTHERAPY OT/PT/Speech Visit (PTWS) -------- LACY ALVARADO ([id number]) 1950 F Date Time Provider Department 01/12/18 7:00 AM TILA ALMANZAR (PT) PTWS Date Time Provider Department Center 01/12/2018 7:00 AM [id number], DIANA (PT)PTWS [facility] Reason for Visit: Physical Therapy [...] CAPSULE,MANDIE* Take 1 capsule by mouth twice* DJTTFRYO-LOZTTTZDJ-TOGQG NIRU * Use 3 Drops in the [...] needs. Patient response monitored throughout treatment. Billing: [facility]: Therapeutic Exercise (43567): 1:1 time: 20 minutes (1 unit: 8-22 mins) Manual Therapy (68891): 1:1 time: 8 minutes (1 unit: 8-22 mins) Modalities Ultrasound (14470) 1:1 time: 15 minutes1 unit: 8-22 mins Total time: 43 minutes Tila Almanzar PT -------- Normal [facility] PROGRESSon 01-12-2018 Protein mass conc HNO ID: [id number] Author: Tila (Pt) Jenelle Service: (none) Author [...] needs. Patient response monitored throughout treatment. Billing: [facility]: Therapeutic Exercise (17832): 1:1 time: 20 minutes (1 unit: 8-22 mins) Manual Therapy (32002): 1:1 time: 8 minutes (1 unit: 8-22 mins) Modalities Ultrasound (21055) 1:1 time: 15 minutes1 unit: 8-22 mins Total time: 43 minutes NAVNEET Posada [facility] CNOVon 01-11-2018 CNOV Office Visit (PODIWS ) -------- LACY ALVARADO ([id number]) 1950 F Date Time Provider Department 01/11/18 9:10 AM MYNOR FLORES During your visit today, we recorded the following information about you: Mynor Flores DPM 01/11/2018 9:48 AM Signed ? Mynor Flores DPM Department of Podiatry [address] [place] [address] Dept: [phone] Dept 01/11/2018 Follow Up Podiatric Office Visit: [...] Take 1 capsule by mouth twice daily. 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 Mynor Flores DPM Department of Podiatry [address] [facility] [address] Dept: [phone] Dept 01/11/2018 Follow Up Podiatric Office Visit: [...] Take 1 capsule by mouth twice daily. 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 Lives with son in [place] REVIEW OF SYSTEMS: CONSTITUTIONAL: No fevers, chills, [...] in 6 weeks Mynor Flores DPM Normal [facility] CNTHERAPYon 01-07-2018 CNTHERAPY OT/PT/Speech Visit (PTWS) -------- LACY ALVARADO ([id number]) 1950 F Date Time Provider Department 01/07/18 7:00 AM TILA ALMANZAR (PT) PTWS Date Time Provider Department Center 01/07/2018 7:00 AM [id number], DIANA (PT)PTWS [facility] Reason for Visit: Physical Therapy [...] CAPSULE,MANDIE* Take 1 capsule by mouth twice* FGFLJYGC-YPKTJIPOL-QMVON NIRU * Use 3 Drops in the [...] needs. Patient response monitored throughout treatment. Billing: [facility]: Therapeutic Exercise (61235): 1:1 time: 15 minutes (1 unit: 8-22 mins) Modalities Ultrasound (42119) 1:1 time: 15 minutes1 unit: 8-22 mins Total time: 30 minutes Tila Almanzar PT -------- Normal [facility] PROGRESSon 01-07-2018 Protein mass conc HNO ID: [id number] Author: Tila (Pt) Jenelle Service: (none) Author [...] needs. Patient response monitored throughout treatment. Billing: [facility]: Therapeutic Exercise (76010): 1:1 time: 15 minutes (1 unit: 8-22 mins) Modalities Ultrasound (88892) 1:1 time: 15 minutes1 unit: 8-22 mins Total time: 30 minutes NAVNEET Posada [facility] CNTHERAPYon 01-05-2018 CNTHERAPY OT/PT/Speech Visit (PTWS) -------- LACY ALVARADO ([id number]) 1950 F Date Time Provider Department 01/05/18 7:00 AM TILA ALMANZAR (PT) PTWS Date Time Provider Department Center 01/05/2018 7:00 AM [id number], DIANA (PT)PTWS [facility] Reason for Visit: PT Eval [...] CAPSULE,MANDIE* Take 1 capsule by mouth twice* YOEIQQTS-CMGZDPAAQ-PAGPU NIRU * Use 3 Drops in the [...] of Care: created on 01/05/18 through 03/16/18 [place] in home exercise program. Patient will decrease [...] Planned Treatment Interventions: Therapeutic exercise;Neuromuscular re-education;Manual therapy;Therapeutic activities;Self-residential management;Gait Training;Patient/Family/ Caregiver Education;Modalities;Fun ctional training;General ConditioningUltrasound [...] facilitated with verbal, visual and tactile cuing. Self-Group Home Management: 1: Recommended to stop wearing [...] on clinical presentation, deficits, and needs. Billing: [facility]: Evaluation - Low Complexity (75459) Therapeutic Exercise (06406): 1:1 time: 15 minutes (1 unit: 8-22 mins) Educ Home Mgmt (52573): 1:1 time: 10 minutes (1 unit: 8-22 mins) Total time: 38 minutes Tila Almanzar PT -------- Normal [facility] PROGRESSon 01-05-2018 Protein mass conc HNO ID: [id number] Author: Tila (Pt) Jenelle Service: (none) Author [...] of Care: created on 01/05/18 through 03/16/18 [place] in home exercise program. Patient will decrease [...] Planned Treatment Interventions: Therapeutic exercise;Neuromuscular re-education;Manual therapy;Therapeutic activities;Self-residential management;Gait Training;Patient/Family/ Caregiver Education;Modalities;Fun ctional training;General ConditioningUltrasound [...] facilitated with verbal, visual and tactile cuing. Self-Group Home Management: 1: Recommended to stop wearing [...] on clinical presentation, deficits, and needs. Billing: [facility]: Evaluation - Low Complexity (30991) Therapeutic Exercise (17252): 1:1 time: 15 minutes (1 unit: 8-22 mins) Educ Home Mgmt (90326): 1:1 time: 10 minutes (1 unit: 8-22 mins) Total time: 38 minutes Tila Almanzar PT Normal [facility] CNOVon 12-09-2017 CNOV Office Visit (PODIWS ) -------- LACY ALVARADO ([id number]) 1950 F Date Time Provider Department 12/09/17 7:55 AM MYNOR FLORES During your visit today, we recorded the following information about you: Mynor Flores DPM 12/09/2017 8:20 AM Signed ? Mynor Flores DPM Department of Podiatry [address] [place] [address] Dept: [phone] Dept 12/09/2017 Follow Up Podiatric Office Visit: [...] Take 1 capsule by mouth twice daily. 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 Lives with son in [place] REVIEW OF SYSTEMS: CONSTITUTIONAL: No fevers, chills, [...] Mynor Flores DPM Referring Provider: MYNOR FLORES [[id number]] Allergies As of Date: 12/09/2017 Noted Allergy [...] [R09.89] Order(s):PVR [facility] [[id number]] Order #: [id number] FUTURE CONSULT TO PHYSICAL THERAPY [9055] Order #: [id number]: 1 Prescriptions as of 12/09/2017 Sig: VERAPAMIL [...] CAPSULE,MANDIE* Take 1 capsule by mouth twice* HYWJDYVV-LQJWLPGOY-NQOLJ NIRU * Use 3 Drops in the [...] by MYNOR FLORES DPM on 12/09/17 Normal [facility] PROGRESSon 12-09-2017 Protein mass conc HNO ID: [id number] Author: Mynor Flores Service: (none) Author Type: Physician Type: Progress Notes Filed: 12/09/2017 8:20 AM Note Text: ? Mynor Flores DPM Department of Podiatry [address] [place] [address] Dept: [phone] Dept 12/09/2017 Follow Up Podiatric Office Visit: [...] Take 1 capsule by mouth twice daily. 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 [address] Dept: [phone] Dept October 15, 2017 CHIEF COMPLAINT: new [...] MD Imaging: IMPRESSION: MILD DEGENERATIVE JOINT DISEASE. Finance Admin: RADHA ? Transcribe Date/Time: Oct 14 2017 [...] 81 MG TAB Take one(1) tablet daily. kpionrng-ldetpqtxo-tazqv cortisone (CORTISPORIN) otic solution Use 3 Drops [...] anxiety) This note was partially generated using [employer] voice recognition system, and there may be some incorrect words, spellings, and punctuation that were not noted in checking the note before saving. Jossue Finley MD Referring Provider: JOSSUE FINLEY [[id number]] Allergies As of Date: 10/15/2017 Noted Allergy [...] 81 MG TABLET Take one(1) tablet daily. ZWSVZYBJ-JRMURZOUU-QCVLT NIRU * Use 3 Drops in the [...] BUILDER 10/15/2017 10/15/2017 Class: Suppress Questions Route: [facility] Encounter Status:Closed by JOSSUE FINLEY MD on 10/15/17 Normal [facility] PROGRESSon 10-15-2017 Protein mass conc HNO ID: [id number] Author: Jossue Finley Service: (none) Author Type: Physician Type: Progress Notes Filed: 10/15/2017 4:13 PM Note Text: Jossue Finley MD Department of Orthopaedics Orthopaedics [address] [facility] [place] [address] Dept: [phone] Dept October 15, 2017 CHIEF COMPLAINT: new problem (left knee pain, xray. last seen 03-11-16 for ganglion cyst left 2nd finger) Ms. Lcay Alvarado is a 66 year old female [...] MD Imaging: IMPRESSION: MILD DEGENERATIVE JOINT DISEASE. Finance Admin: RADHA ? Transcribe Date/Time: Oct 14 2017 [...] 81 MG TAB Take one(1) tablet daily. ynjugjmn-vnsfywqmz-xfysh cortisone (CORTISPORIN) otic solution Use 3 Drops [...] anxiety) This note was partially generated using [employer] voice recognition system, and there may be some incorrect words, spellings, and punctuation that were not noted in checking the note before saving. Jossue Finley MD Normal [facility] Protein mass conc HNO ID: [id number] Author: Norma Leone RN Service: (none) Author [...] afterward to clean out scar tissue. Normal [facility] PROGRESSon 10-14-2017 Protein mass conc HNO ID: [id number] Author: John Paul Frias (Tech) Service: (none) Author Type: Bulb Weeder Type: Progress Notes Filed: 10/14/2017 9:03 AM [...] Dozier October 14, 2017 9:02 AM Normal [facility] XR KNEE 4V AP/PA BOTH+LAT/ME [...] No fracture. IMPRESSION: MILD DEGENERATIVE JOINT DISEASE. Finance Admin: RADHA Transcribe Date/Time: Oct 14 2017 12:16P Dictated by : CHRIS FRANCIS MD This examination was interpreted and the report reviewed and electronically signed by: CHRIS FRANCIS MD on Oct 14 2017 12:20PM EST [id number] Normal [facility] CNCOon 07-20-2017 CNCO HNO ID: [id number] Author: Mammography Coordinator Service: (none) Author Type: Physician Type: Letter Filed: 07/21/2017 11:31 PM Note Text: July 20, 2017 PID: [id number] Lacy Alvarado [address] [place] [address] Dear Ms. Alvarado, We are pleased to [...] report will be kept on file at [facility] as part of your permanent medical record and are available for your continuing care. Thank you for allowing us to help in meeting your health care needs. Sincerely, Dr. Jaime Interpreting Radiologist [facility] (Normal over 40) Normal [facility] Lipid Panel, [place] 018 Cholesterol in HDL mass conc 49 mg/dL Normal >39 [facility] Comment on above: Result Comment: 40-5 9 mg/dL, Acceptable >59 mg/dL, High: Negative risk factor for coronary heart disease <40 mg/dL, Low: Positive risk factor for coronary heart disease Performed By: #### L IPB #### [facility] [employer] [address] [place], [place] [id number] Cholesterol in LDL mass conc 157 mg/dL High <100 [facility] Comment on above: Result Comment: <100 mg/dL, Optimal 100-129 mg/dL, Near optimal/above optimal 130-159 mg/dL, Borderline high 160-189 mg/dL, High >189 mg/dL, Very high Secondary prevention optimal LDL Cholesterol levels are recommended to be < 70 mg/dL Performed By: #### L IPB #### [facility] [address] [place], [place] [address] Cholesterol mass conc 225 mg/dL High <200 [facility] Comment on above: Result Comment: <200 mg/dL, Desirable 200-239 mg/dL, Borderline high >239 mg/dL, High Performed By: #### L IPB #### [place] [address] [place] [address] Fasting Time 2 hrs Normal [facility] Comment on above: Performed By: #### L IPB #### [place] [address] LDL:HDL Ratio 3.20 High <2.54 [facility] Comment on above: Result Comment: Refe rence: 1. National Cholesterol Education Program ATP III Guideline At-A-Glance Quick Desk Reference: National Heart, Lung, and Blood [place]. National Institutes of Health. 2001: NIH Publication No. 01-3305. 2. An International Atherosclerosis Society position paper: global recommendations for the management of dyslipidemia: executive summary, Atherosclerosis. 2014: 232(2):410-413. Performed By: #### L IPB #### [place] [phone] Non HDL Cholesterol 176 mg/dL High <[address] [facility] Comment on above: Result Comment: <130 mg/dL, Optimal 130-159 mg/dL, Near optimal/above optimal 160-189 mg/dL, Borderline high 190-219 mg/dL, High >219 mg/dL, Very high Secondary prevention optimal non HDL Cholesterol levels are recommended to be < 100 mg/dL Performed By: #### L IPB #### [place] [address] [place] [address] TC:HDL Ratio 4.59 Normal <5.10 [facility] Comment on above: Performed By: #### L IPB #### [place] [address] [place] [address] Triglyceride mass conc 97 mg/dL Normal <150 [facility] Comment on above: Result Comment: <150 mg/dL, Normal 150-199 mg/dL, Borderline high 200-499 mg/dL, High >499 mg/dL, Very high Performed By: #### L IPB #### [facility] [address] [place], [place] [address] VLDL Cholesterol 19 mg/dL Normal <30 [facility] Comment on above: Performed By: #### L IPB #### [facility] [address] [place], [place] [address] HAYLEE SCREENINGon 07-20-2017 HAYLEE SCREENING * * *Final Report* * * DATE OF EXAM: Jul 20 2017 8:44AM [facility] 0581 - [facility] SCREENING / PROCEDURE REASON: Encounter for screening mammogram for malignant neoplasm of breast * * * * Physician Interpretation * * * * RESULT: #[id number] - [facility] SCREENING BILATERAL DIGITAL SCREENING MAMMOGRAM WITH CAD: [...] made to exams dated: 03/11/2016 mammogram - [facility] and 12/19/2014 mammogram - [facility]. There are scattered fibroglandular elements in both breasts. No significant masses, calcifications, or other findings are seen in either breast. There has been no significant interval change. IMPRESSION: NEGATIVE There is no mammographic evidence of malignancy.A 1 year screening mammogram is recommended. Nilay Jaime M.D. cp/madeline:07/20/2017 09:15:21 Senior C Software Engineer: Brielle HOPKINS(R)(M), [facility] letter sent: Normal over 40 Mammogram BI-RADS: 1 Negative Finance Admin: Madeline Transcribe Date/Time: Jul 20 2017 8:46A Dictated by: NILAY JAIME MD This examination was interpreted and the report reviewed and electronically signed by: NILAY JAIME MD on Jul 20 2017 9:15AM EST [id number] Normal [facility] CNOVon 02-09-2017 CNOV Office Visit (AGCMARILINWST) LACY REDDY ([id number]) 1950 FDate Time Provider Jjcudotyys94/9/17 9:00 AM CHRIS YAO During your visit today, we recorded the following information about you: Pulse Blood pressure Weight 88/minute 136/74 78.1 kgChris Yao MD 02/09/2017 5:28 PM SignedPERTINENT CARDIAC HISTORYSt. Luke's HospitalLINICAL IMPRESSION/PLAN:Lacy Alvarado is doing well. She's [...] with treatment plan.This note was generated using [employer] voice recognition system, and there may besome [...] LDL has improved to 118.Electronically Signed:[facility]06 [facility]: JANAE Fincheferring Provider: SHAD BRISENO [[id number]]Allergies As of Date: 02/09/2017 Noted Allergy ReactionSEASONAL [...] CAPSULE,MANDIE* Take 1 capsule by mouth twice* [id number]-[id number]-[id number] NIRU * Use 3 Drops in the [...] SmartForms filed during this visit:Extended VitalsEncounter Number: [id number] Status:Closed by CHRIS YAO MD on 02/09/17 [facility] PROGRESSon 02-09-2017 PROGRESS HNO ID: [id number]: Chris Pelayo: (none)Author Type: PhysicianType: Progress NotesFiled: [...] with treatment plan.This note was generated using [employer] voice recognition system, and theremay be some [...] LDL has improved to 118.Electronically Signed:Chris Yao MD[facility] 2016 9:06 [facility]: Kasie Pink MD [facility] No Panel Information SARS-CoV-2 & FLU Antigen (Rapid) [facility] Work Phone: S. pyogenes Ag IF Ql (Throat ) S. pyogenes Ag IA Ql (Unsp spec) [facility] Work Phone: Vital Signs Date Time Vital Sign Value Performing Clinician Facility 11-07-2024 11:15040 Body height 157.[address] Mayda Garcia MD Work Phone: [facility] 11-07-2024 11:15-0400 Body mass index (BMI) [Ratio] 31.4 kg/m2 Dr. Mayda Garcia MD Work Phone: [facility] 11-07-2024 11:15-0400 Body temperature 98.2 [degF] Dr. Mayda Garcia MD Work Phone: [facility] 11-07-2024 11:15-0400 Body weight 78.[address] Mayda Garcia MD Work Phone: [facility] 11-07-2024 11:15-0400 Diastolic blood pressure 77 mm[Hg] Dr. Mayda Garcia MD Work Phone: [facility] 11-07-2024 11:15-0400 Heart rate 94 /min Dr. Mayda Garcia MD Work Phone: [facility] 11-07-2024 11:15-0400 Respiratory rate 17 /min Dr. Mayda Garcia MD Work Phone: [facility] 11-07-2024 11:15-0400 SaO2% (BldA) [Mass fraction] 99 % Dr. Mayda Garcia MD Work Phone: [facility] 11-07-2024 11:15-0400 Systolic blood pressure 119 mm[Hg] Dr. Mayda Garcia MD Work Phone: [facility] 10-03-2024 11:23-0400 Body temperature 98.6 [degF] Dr. Mayda Garcia MD Work Phone: [facility] 10-03-2024 11:23-0400 Body weight 78.[address] Mayda Garcia MD Work Phone: [facility] 10-03-2024 11:23-0400 Diastolic blood pressure 79 mm[Hg] Dr. Mayda Garcia MD Work Phone: [facility] 10-03-2024 11:23-0400 Heart rate 88 /min Dr. Mayda Garcia MD Work Phone: [facility] 10-03-2024 11:23-0400 Respiratory rate 17 /min Dr. Mayda Garcia MD Work Phone: [facility] 10-03-2024 11:23-0400 SaO2% (BldA) [Mass fraction] 98 % Dr. Mayda Garcia MD Work Phone: [facility] 10-03-2024 11:23-0400 Systolic blood pressure 139 mm[Hg] Dr. Mayda Garcia MD Work Phone: [facility] 09-28-2024 08:21-0400 Body mass index (BMI) [Ratio] 30.9 kg/m2 Dr. Mayda Garcia MD Work Phone: [facility] 09-28-2024 08:21-0400 Body temperature 97.4 [degF] Dr. Mayda Garcia MD Work Phone: [facility] 09-28-2024 08:21-0400 Body weight 76.[address] Mayda Garcia MD Work Phone: [facility] 09-28-2024 08:21-0400 Diastolic blood pressure 77 mm[Hg] Dr. Mayda Garcia MD Work Phone: [facility] 09-28-2024 08:21-0400 Heart rate 78 /min Dr. Mayda Garcia MD Work Phone: [facility] 09-28-2024 08:21-0400 Respiratory rate 18 /min Dr. Mayda Garcia MD Work Phone: [facility] 09-28-2024 08:21-0400 SaO2% (BldA) [Mass fraction] 99 % Dr. Mayda Garcia MD Work Phone: [facility] 09-28-2024 08:21-0400 Systolic blood pressure 148 mm[Hg] Dr. Mayda Garcia MD Work Phone: [facility] 09-21-2024 11:14-0400 Body height 157.[address] Mayda Garcia MD Work Phone: [facility] 09-21-2024 11:14-0400 Body mass index (BMI) [Ratio] 31.1 kg/m2 Dr. Mayda Garcia MD Work Phone: [facility] 09-21-2024 11:14-0400 Body temperature 96 [degF] Dr. Mayda Garcia MD Work Phone: [facility] 09-21-2024 11:14-0400 Body weight 77.[address] Mayda Garcia MD Work Phone: [facility] 09-21-2024 11:14-0400 Diastolic blood pressure 76 mm[Hg] Dr. Mayda Garcia MD Work Phone: [facility] 09-21-2024 11:14-0400 Heart rate 100 /min Dr. Mayda Garcia MD Work Phone: [facility] 09-21-2024 11:14-0400 Respiratory rate 16 /min Dr. Mayda Garcia MD Work Phone: [facility] 09-21-2024 11:14-0400 SaO2% (BldA) [Mass fraction] 97 % Dr. Mayda Garcia MD Work Phone: [facility] 09-21-2024 11:14-0400 Systolic blood pressure 126 mm[Hg] Dr. Mayda Garcia MD Work Phone: [facility] 09-19-2024 07:29-0400 Body mass index (BMI) [Ratio] 0.1 kg/m2 Dr. Mayda Garcia MD Work Phone: [facility] 09-19-2024 07:29-0400 Body weight 0.[address] Mayda Garcia MD Work Phone: [facility] 09-19-2024 07:29-0400 Diastolic blood pressure 82 mm[Hg] Dr. Mayda Garcia MD Work Phone: [facility] 09-19-2024 07:29-0400 Heart rate 91 /min Dr. Mayda Garcia MD Work Phone: [facility] 09-19-2024 07:29-0400 Respiratory rate 18 /min Dr. Mayda aGrcia MD Work Phone: [facility] 09-19-2024 07:29-0400 SaO2% (BldA) [Mass fraction] 95 % Dr. Mayda Garcia MD Work Phone: [facility] 09-19-2024 07:29-0400 Systolic blood pressure 125 mm[Hg] Dr. Mayda Garcia MD Work Phone: [facility] 09-16-2024 19:40-0400 Body temperature 98.2 [degF] Dr. Mayda Garcia MD Work Phone: [facility] 09-16-2024 19:40-0400 Diastolic blood pressure 83 mm[Hg] Dr. Mayda Garcia MD Work Phone: [facility] 09-16-2024 19:40-0400 Heart rate 78 /min Dr. Mayda Garcia MD Work Phone: [facility] 09-16-2024 19:40-0400 Respiratory rate 24 /min Dr. Mayda Garcia MD Work Phone: [facility] 09-16-2024 19:40-0400 SaO2% (BldA) [Mass fraction] 99 % Dr. Mayda Garcia MD Work Phone: [facility] 09-16-2024 19:40-0400 Systolic blood pressure 137 mm[Hg] Dr. Mayda Garcia MD Work Phone: [facility] 09-16-2024 15:08-0400 Body height 157.[address] Mayda Garcia MD Work Phone: [facility] 08-10-2024 11:01-0400 Body mass index (BMI) [Ratio] 30.3 kg/m2 Dr. Mayda Garcia MD Work Phone: [facility] 08-10-2024 11:01-0400 Body temperature 97 [degF] Dr. Mayda Garcia MD Work Phone: [facility] 08-10-2024 11:01-0400 Body weight 75.[address] Mayda Garcia MD Work Phone: [facility] 08-10-2024 11:01-0400 Diastolic blood pressure 60 mm[Hg] Dr. Mayda Garcia MD Work Phone: [facility] 08-10-2024 11:01-0400 Heart rate 93 /min Dr. Mayda Garcia MD Work Phone: [facility] 08-10-2024 11:01-0400 Respiratory rate 16 /min Dr. Mayda Garcia MD Work Phone: [facility] 08-10-2024 11:01-0400 SaO2% (BldA) [Mass fraction] 97 % Dr. Mayda Garcia MD Work Phone: [facility] 08-10-2024 11:01-0400 Systolic blood pressure 108 mm[Hg] Dr. Mayda Garcia MD Work Phone: [facility] 07-15-2024 16:16-0400 Body temperature 97.6 [degF] Dr. Mayda Garcia MD Work Phone: [facility] 07-15-2024 16:16-0400 Diastolic blood pressure 79 mm[Hg] Dr. Mayda Garcia MD Work Phone: [facility] 07-15-2024 16:16-0400 Heart rate 98 /min Dr. Mayda Garcia MD Work Phone: [facility] 07-15-2024 16:16-0400 Respiratory rate 18 /min Dr. Mayda Garcia MD Work Phone: [facility] 07-15-2024 16:16-0400 SaO2% (BldA) [Mass fraction] 99 % Dr. Mayda Garcia MD Work Phone: [facility] 07-15-2024 16:16-0400 Systolic blood pressure 161 mm[Hg] Dr. Mayda Garcia MD Work Phone: [facility] 07-15-2024 12:12-0400 Body height 157.[address] Mayda Garcia MD Work Phone: [facility] 07-15-2024 12:12-0400 Body mass index (BMI) [Ratio] 30.6 kg/m2 Dr. Mayda Garcia MD Work Phone: [facility] 07-15-2024 12:12-0400 Body weight 75.[address] Mayda Garcia MD Work Phone: [facility] 07-14-2024 20:20-0400 Body temperature 97.9 [degF] Dr. Mayda Garcia MD Work Phone: [facility] 07-14-2024 20:20-0400 Diastolic blood pressure 80 mm[Hg] Dr. Mayda Garcia MD Work Phone: [facility] 07-14-2024 20:20-0400 Heart rate 85 /min Dr. Mayda Garcia MD Work Phone: [facility] 07-14-2024 20:20-0400 Respiratory rate 17 /min Dr. Mayda Garcia MD Work Phone: [facility] 07-14-2024 20:20-0400 SaO2% (BldA) [Mass fraction] 98 % Dr. Mayda Garcia MD Work Phone: [facility] 07-14-2024 20:20-0400 Systolic blood pressure 107 mm[Hg] Dr. Mayda Garcia MD Work Phone: [facility] 07-14-2024 16:18-0400 Body height 157.[address] Mayda Garcia MD Work Phone: [facility] 07-14-2024 16:18-0400 Body mass index (BMI) [Ratio] 30.7 kg/m2 Dr. Mayda Garcia MD Work Phone: [facility] 07-14-2024 16:18-0400 Body weight 76.[address] Mayda Garcia MD Work Phone: [facility] 07-05-2024 10:56-0500 Body mass index (BMI) [Ratio] 30.7 kg/m2 Dr. Mayda Garcia MD Work Phone: [facility] 07-05-2024 10:56-0500 Body temperature 98.6 [degF] Dr. Mayda Garcia MD Work Phone: [facility] 07-05-2024 10:56-0500 Body weight 76.[address] Mayda Garcia MD Work Phone: [facility] 07-05-2024 10:56-0500 Diastolic blood pressure 70 mm[Hg] Dr. Mayda Garcia MD Work Phone: [facility] 07-05-2024 10:56-0500 Heart rate 104 /min Dr. Mayda Garcia MD Work Phone: [facility] 07-05-2024 10:56-0500 Respiratory rate 17 /min Dr. Mayda Garcia MD Work Phone: [facility] 07-05-2024 10:56-0500 SaO2% (BldA) [Mass fraction] 98 % Dr. Mayda Garcia MD Work Phone: [facility] 07-05-2024 10:56-0500 Systolic blood pressure 130 mm[Hg] Dr. Mayda Garcia MD Work Phone: [facility] 05-20-2024 09:36-0500 Body mass index (BMI) [Ratio] 30.9 kg/m2 Dr. Mayda Garcia MD Work Phone: [facility] 05-20-2024 09:36-0500 Body temperature 97.6 [degF] Dr. Mayda Garcia MD Work Phone: [facility] 05-20-2024 09:36-0500 Body weight 76.[address] Mayda Garcia MD Work Phone: [facility] 05-20-2024 09:36-0500 Diastolic blood pressure 78 mm[Hg] Dr. Mayda Garcia MD Work Phone: [facility] 05-20-2024 09:36-0500 Heart rate 98 /min Dr. Mayda Garcia MD Work Phone: [facility] 05-20-2024 09:36-0500 Respiratory rate 16 /min Dr. Mayda Garcia MD Work Phone: [facility] 05-20-2024 09:36-0500 SaO2% (BldA) [Mass fraction] 99 % Dr. Mayda Garcia MD Work Phone: [facility] 05-20-2024 09:36-0500 Systolic blood pressure 142 mm[Hg] Dr. Mayda Garcia MD Work Phone: [facility] 05-16-2024 09:40-0500 Body mass index (BMI) [Ratio] 31.6 kg/m2 Dr. Mayda Garcia MD Work Phone: [facility] 05-16-2024 09:40-0500 Body temperature 98.4 [degF] Dr. Mayda aGrcia MD Work Phone: [facility] 05-16-2024 09:40-0500 Body weight 78.[address] Mayda Garcia MD Work Phone: [facility] 05-16-2024 09:40-0500 Diastolic blood pressure 70 mm[Hg] Dr. Mayda Garcia MD Work Phone: [facility] 05-16-2024 09:40-0500 Heart rate 89 /min Dr. Mayda Garcia MD Work Phone: [facility] 05-16-2024 09:40-0500 Respiratory rate 16 /min Dr. Mayda Garcia MD Work Phone: [facility] 05-16-2024 09:40-0500 SaO2% (BldA) [Mass fraction] 99 % Dr. Mayda Garcia MD Work Phone: [facility] 05-16-2024 09:40-0500 Systolic blood pressure 116 mm[Hg] Dr. Mayda Garcia MD Work Phone: [facility] 04-21-2024 10:56-0500 Body mass index (BMI) [Ratio] 30.9 kg/m2 Dr. Mayda Garcia MD Work Phone: [facility] 04-21-2024 10:56-0500 Body temperature 98.4 [degF] Dr. Mayda Garcia MD Work Phone: [facility] 04-21-2024 10:56-0500 Body weight 76.[address] Mayda Garcia MD Work Phone: [facility] 04-21-2024 10:56-0500 Diastolic blood pressure 72 mm[Hg] Dr. Mayda Garcia MD Work Phone: [facility] 04-21-2024 10:56-0500 Heart rate 111 /min Dr. Mayda Garcia MD Work Phone: [facility] 04-21-2024 10:56-0500 Respiratory rate 17 /min Dr. Mayda Garcia MD Work Phone: [facility] 04-21-2024 10:56-0500 SaO2% (BldA) [Mass fraction] 97 % Dr. Mayda Garcia MD Work Phone: [facility] 04-21-2024 10:56-0500 Systolic blood pressure 130 mm[Hg] Dr. Mayda Garcia MD Work Phone: [facility] 04-20-2024 12:38-0500 Body weight 76.[address] Mayda Garcia MD Work Phone: [facility] 04-20-2024 12:38-0500 Heart rate 106 /min Dr. Mayda Garcia MD Work Phone: [facility] 04-20-2024 12:38-0500 SaO2% (BldA) [Mass fraction] 97 % Dr. Mayda Garcia MD Work Phone: [facility] 04-19-2024 10:25-0500 Body mass index (BMI) [Ratio] 30.9 kg/m2 Dr. Mayda Garcia MD Work Phone: [facility] 04-19-2024 10:25-0500 Body weight 76.[address] Mayda Garcia MD Work Phone: [facility] 04-19-2024 10:25-0500 Diastolic blood pressure 62 mm[Hg] Dr. Mayda Garcia MD Work Phone: [facility] 04-19-2024 10:25-0500 Heart rate 97 /min Dr. Mayda Garcia MD Work Phone: [facility] 04-19-2024 10:25-0500 Respiratory rate 16 /min Dr. Mayda Garcia MD Work Phone: [facility] 04-19-2024 10:25-0500 Systolic blood pressure 115 mm[Hg] Dr. Mayda Garcia MD Work Phone: [facility] 08-03-2023 00:11-0400 Body weight 75.[address] Mayda Garcia Work Phone: [facility] 07-29-2023 08:29-0400 Body height 157.[address] Mayda Garcia Work Phone: [facility] 07-29-2023 08:29-0400 Body weight 75.[address] Mayda Garcia Work Phone: [facility] 07-23-2023 10:50-0400 Body height 157.[address] Mayda Garcia Work Phone: [facility] 07-23-2023 10:50-0400 Body mass index (BMI) [Ratio] 30.2 kg/m2 Dr. Mayda Garcia Work Phone: [facility] 07-23-2023 10:50-0400 Body temperature 97.8 [degF] Dr. Mayda Garcia Work Phone: [facility] 07-23-2023 10:50-0400 Body weight 74.[address] Mayda Garcia Work Phone: [facility] 07-23-2023 10:50-0400 Diastolic blood pressure 76 mm[Hg] Dr. Mayda Garcia Work Phone: [facility] 07-23-2023 10:50-0400 Heart rate 96 /min Dr. Mayda Garcia Work Phone: [facility] 07-23-2023 10:50-0400 Respiratory rate 17 /min Dr. Mayda Garcia Work Phone: [facility] 07-23-2023 10:50-0400 SaO2% (BldA) [Mass fraction] 99 % Dr. Mayda Garcia Work Phone: [facility] 07-23-2023 10:50-0400 Systolic blood pressure 118 mm[Hg] Dr. Mayda Garcia Work Phone: [facility] 07-20-2023 13:17-0400 Body mass index (BMI) [Ratio] 30.9 kg/m2 Dr. Mayda Garcia Work Phone: [facility] 07-20-2023 13:17-0400 Body temperature 97.8 [degF] Dr. Mayda Garcia Work Phone: [facility] 07-20-2023 13:17-0400 Body weight 76.[address] Mayda Garcia Work Phone: [facility] 07-20-2023 13:17-0400 Diastolic blood pressure 68 mm[Hg] Dr. Mayda Garcia Work Phone: [facility] 07-20-2023 13:17-0400 Heart rate 88 /min Dr. Mayda Garcia Work Phone: [facility] 07-20-2023 13:17-0400 Respiratory rate 17 /min Dr. Mayda Garcia Work Phone: [facility] 07-20-2023 13:17-0400 SaO2% (BldA) [Mass fraction] 99 % Dr. Mayda Garcia Work Phone: [facility] 07-20-2023 13:17-0400 Systolic blood pressure 118 mm[Hg] Dr. Mayda Garcia Work Phone: [facility] 07-03-2023 00:06-0500 Body weight 73.[address] Mayda Garcia Work Phone: [facility] 07-01-2023 09:13-0500 Body height 157.[address] Mayda Garcia Work Phone: [facility] 07-01-2023 09:13-0500 Body weight 73.[address] Mayda Garcia Work Phone: [facility] 06-17-2023 10:16-0500 Body height 157.[address] Mayda Garcia Work Phone: [facility] 06-17-2023 10:16-0500 Body mass index (BMI) [Ratio] 28.8 kg/m2 Dr. Mayda Garcia Work Phone: [facility] 06-17-2023 10:16-0500 Body temperature 97.4 [degF] Dr. Mayda Garcia Work Phone: [facility] 06-17-2023 10:16-0500 Body weight 71.[address] Mayda Garcia Work Phone: [facility] 06-17-2023 10:16-0500 Diastolic blood pressure 82 mm[Hg] Dr. Mayda Garcia Work Phone: [facility] 06-17-2023 10:16-0500 Heart rate 93 /min Dr. Mayda Garcia Work Phone: [facility] 06-17-2023 10:16-0500 Respiratory rate 16 /min Dr. Mayda Garcia Work Phone: [facility] 06-17-2023 10:16-0500 SaO2% (BldA) [Mass fraction] 98 % Dr. Mayda Garcia Work Phone: [facility] 06-17-2023 10:16-0500 Systolic blood pressure 126 mm[Hg] Dr. Mayda Garcia Work Phone: [facility] 06-10-2023 07:48-0500 Body mass index (BMI) [Ratio] 29.4 kg/m2 Dr. Mayda Garcia Work Phone: [facility] 06-10-2023 07:48-0500 Body temperature 98 [degF] Dr. Mayda Garcia Work Phone: [facility] 06-10-2023 07:48-0500 Body weight 73.[address] Mayda Garcia Work Phone: [facility] 06-10-2023 07:48-0500 Diastolic blood pressure 90 mm[Hg] Dr. Mayda Garcia Work Phone: [facility] 06-10-2023 07:48-0500 Heart rate 79 /min Dr. Mayda Garcia Work Phone: [facility] 06-10-2023 07:48-0500 Respiratory rate 20 /min Dr. Mayda Garcia Work Phone: [facility] 06-10-2023 07:48-0500 SaO2% (BldA) [Mass fraction] 99 % Dr. Mayda Garcia Work Phone: [facility] 06-10-2023 07:48-0500 Systolic blood pressure 171 mm[Hg] Dr. Mayda Garcia Work Phone: [facility] 06-01-2023 10:05-0500 Body mass index (BMI) [Ratio] 29.8 kg/m2 Dr. Mayda Garcia Work Phone: [facility] 06-01-2023 10:05-0500 Body weight 73.[address] Mayda Garcia Work Phone: [facility] 06-01-2023 10:05-0500 Diastolic blood pressure 64 mm[Hg] Dr. Mayda Garcia Work Phone: [facility] 06-01-2023 10:05-0500 Systolic blood pressure 104 mm[Hg] Dr. Mayda Garcia Work Phone: [facility] 06-01-2023 09:57-0500 Heart rate 101 /min Dr. Mayda Garcia Work Phone: [facility] 06-01-2023 09:57-0500 SaO2% (BldA) [Mass fraction] 97 % Dr. Mayda Garcia Work Phone: [facility] 06-01-2023 09:50-0500 Body height 157.[address] Mayda Garcia Work Phone: [facility] 05-18-2023 10:38-0500 Body temperature 98 [degF] Dr. Mayda Garcia Work Phone: [facility] 05-18-2023 10:38-0500 Diastolic blood pressure 70 mm[Hg] Dr. Mayda Garcia Work Phone: [facility] 05-18-2023 10:38-0500 Heart rate 70 /min Dr. Mayda Garcia Work Phone: [facility] 05-18-2023 10:38-0500 Respiratory rate 15 /min Dr. Mayda Garcia Work Phone: [facility] 05-18-2023 10:38-0500 SaO2% (BldA) [Mass fraction] 98 % Dr. Mayda Garcia Work Phone: [facility] 05-18-2023 10:38-0500 Systolic blood pressure 120 mm[Hg] Dr. Mayda Garcia Work Phone: [facility] 04-16-2023 11:43-0500 Body temperature 97.7 [degF] Dr. Mayda Garcia Work Phone: [facility] 04-16-2023 11:43-0500 Body weight 75.[address] Mayda Garcia Work Phone: [facility] 04-16-2023 11:43-0500 Diastolic blood pressure 70 mm[Hg] Dr. Mayda Garcia Work Phone: [facility] 04-16-2023 11:43-0500 Heart rate 99 /min Dr. Mayda Garcia Work Phone: [facility] 04-16-2023 11:43-0500 Respiratory rate 16 /min Dr. Mayda Garcia Work Phone: [facility] 04-16-2023 11:43-0500 SaO2% (BldA) [Mass fraction] 99 % Dr. Mayda Garcia Work Phone: [facility] 04-16-2023 11:43-0500 Systolic blood pressure 130 mm[Hg] Dr. Mayda Garcia Work Phone: [facility] 03-19-2023 09:50-0500 Body height 157.[address] Mayda Garcia Work Phone: [facility] 03-19-2023 09:50-0500 Body mass index (BMI) [Ratio] 29.8 kg/m2 Dr. Mayda Garcia Work Phone: [facility] 03-19-2023 09:50-0500 Body weight 73.[address] Mayda Garcia Work Phone: [facility] 03-19-2023 09:50-0500 Diastolic blood pressure 60 mm[Hg] Dr. Mayda Garcia Work Phone: [facility] 03-19-2023 09:50-0500 Heart rate 92 /min Dr. Mayda Garcia Work Phone: [facility] 03-19-2023 09:50-0500 Respiratory rate 16 /min Dr. Mayda Garcia Work Phone: [facility] 03-19-2023 09:50-0500 Systolic blood pressure 98 mm[Hg] Dr. Mayda Garcia Work Phone: [facility] 03-16-2023 14:11-0500 Body mass index (BMI) [Ratio] 30.4 kg/m2 Dr. Mayda Garcia Work Phone: [facility] 03-16-2023 14:11-0500 Body temperature 97.1 [degF] Dr. Mayda Garcia Work Phone: [facility] 03-16-2023 14:11-0500 Body weight 75.[address] Mayda Garcia Work Phone: [facility] 03-16-2023 14:11-0500 Diastolic blood pressure 62 mm[Hg] Dr. Mayda Garcia Work Phone: [facility] 03-16-2023 14:11-0500 Heart rate 102 /min Dr. Mayda Garcia Work Phone: [facility] 03-16-2023 14:11-0500 Respiratory rate 15 /min Dr. Mayda Garcia Work Phone: [facility] 03-16-2023 14:11-0500 SaO2% (BldA) [Mass fraction] 97 % Dr. Mayda Garcia Work Phone: [facility] 03-16-2023 14:11-0500 Systolic blood pressure 118 mm[Hg] Dr. Mayda Garcia Work Phone: [facility] 03-16-2023 13:21-0500 Body mass index (BMI) [Ratio] 30.5 kg/m2 Dr. Mayda Garcia Work Phone: [facility] 03-16-2023 13:21-0500 Body temperature 98.2 [degF] Dr. Mayda Garcia Work Phone: [facility] 03-16-2023 13:21-0500 Body weight 75.[address] Mayda Garcia Work Phone: [facility] 03-16-2023 13:21-0500 Diastolic blood pressure 63 mm[Hg] Dr. Mayda Garcia Work Phone: [facility] 03-16-2023 13:21-0500 Heart rate 82 /min Dr. Mayda Garcia Work Phone: [facility] 03-16-2023 13:21-0500 Respiratory rate 14 /min Dr. Mayda Garcia Work Phone: [facility] 03-16-2023 13:21-0500 SaO2% (BldA) [Mass fraction] 99 % Dr. Mayda Garcia Work Phone: [facility] 03-16-2023 13:21-0500 Systolic blood pressure 120 mm[Hg] Dr. Mayda Garcia Work Phone: [facility] 02-18-2023 10:07-0400 Body height 157.[address] Mayda Garcia Work Phone: [facility] 02-18-2023 10:07-0400 Body mass index (BMI) [Ratio] 30.5 kg/m2 Dr. Mayda Garcia Work Phone: [facility] 02-18-2023 10:07-0400 Body weight 75.[address] Mayda Garcia Work Phone: [facility] 02-18-2023 10:07-0400 Diastolic blood pressure 76 mm[Hg] Dr. Mayda Garcia Work Phone: [facility] 02-18-2023 10:07-0400 Heart rate 103 /min Dr. Mayda Garcia Work Phone: [facility] 02-18-2023 10:07-0400 Respiratory rate 18 /min Dr. Mayda Garcia Work Phone: [facility] 02-18-2023 10:07-0400 Systolic blood pressure 114 mm[Hg] Dr. Mayda Garcia Work Phone: [facility] 02-11-2023 11:01-0400 Body mass index (BMI) [Ratio] 29.5 kg/m2 Dr. Mayda Garcia Work Phone: [facility] 02-11-2023 11:01-0400 Body temperature 98.4 [degF] Dr. Mayda Garcia Work Phone: [facility] 02-11-2023 11:01-0400 Body weight 73.[address] Mayda Garcia Work Phone: [facility] 02-11-2023 11:01-0400 Diastolic blood pressure 70 mm[Hg] Dr. Mayda Garcia Work Phone: [facility] 02-11-2023 11:01-0400 Heart rate 90 /min Dr. Mayda Garcia Work Phone: [facility] 02-11-2023 11:01-0400 Respiratory rate 17 /min Dr. Mayda Garcia Work Phone: [facility] 02-11-2023 11:01-0400 SaO2% (BldA) [Mass fraction] 96 % Dr. Mayda Garcia Work Phone: [facility] 02-11-2023 11:01-0400 Systolic blood pressure 110 mm[Hg] Dr. Mayda Garcia Work Phone: [facility] 02-04-2023 10:53-0400 Body mass index (BMI) [Ratio] 30.5 kg/m2 Dr. Mayda Garcia Work Phone: [facility] 02-04-2023 10:53-0400 Body temperature 97.6 [degF] Dr. Mayda Garcia Work Phone: [facility] 02-04-2023 10:53-0400 Body weight 75.[address] Mayda Garcia Work Phone: [facility] 02-04-2023 10:53-0400 Diastolic blood pressure 80 mm[Hg] Dr. Mayda Garcia Work Phone: [facility] 02-04-2023 10:53-0400 Heart rate 91 /min Dr. Mayda Garcia Work Phone: [facility] 02-04-2023 10:53-0400 Respiratory rate 16 /min Dr. Mayda Garcia Work Phone: [facility] 02-04-2023 10:53-0400 SaO2% (BldA) [Mass fraction] 98 % Dr. Mayda Garcia Work Phone: [facility] 02-04-2023 10:53-0400 Systolic blood pressure 124 mm[Hg] Dr. Mayda Garcia Work Phone: [facility] 01-26-2023 11:37-0400 Body temperature 98.3 [degF] Dr. Mayda Garcia Work Phone: [facility] 01-26-2023 11:37-0400 Diastolic blood pressure 67 mm[Hg] Dr. Mayda Garcia Work Phone: [facility] 01-26-2023 11:37-0400 Heart rate 86 /min Dr. Mayda Garcia Work Phone: [facility] 01-26-2023 11:37-0400 Respiratory rate 18 /min Dr. Mayda Garcia Work Phone: [facility] 01-26-2023 11:37-0400 SaO2% (BldA) [Mass fraction] 98 % Dr. Mayda Garcia Work Phone: [facility] 01-26-2023 11:37-0400 Systolic blood pressure 107 mm[Hg] Dr. Mayda Garcia Work Phone: [facility] 01-24-2023 06:00-0400 Body mass index (BMI) [Ratio] 31.3 kg/m2 Dr. Mayda Garcia Work Phone: [facility] 01-24-2023 06:00-0400 Body weight 77.[address] Mayda Garcia Work Phone: [facility] 01-22-2023 06:03-0400 Inhaled oxygen flow rate 2 L/min Dr. Mayda Garcia Work Phone: [facility] 01-21-2023 16:06-0400 Body height 157.[address] Mayda Garcia Work Phone: [facility] 01-11-2023 07:00-0400 Body temperature 98.29 [degF] Azam Rose MD Work Phone: [facility] 01-11-2023 07:00-0400 Diastolic blood pressure 62 mm[Hg] Azam Rose MD Work Phone: [facility] 01-11-2023 07:00-0400 Heart rate 81 /min Azam Rose MD Work Phone: [facility] 01-11-2023 07:00-0400 Respiratory rate 16 /min Azam Rose MD Work Phone: [facility] 01-11-2023 07:00-0400 SaO2% (BldA) [Mass fraction] 96 % Azam Rose MD Work Phone: [facility] 01-11-2023 07:00-0400 Systolic blood pressure 112 mm[Hg] Azam Rose MD Work Phone: [facility] 01-11-2023 04:43-0400 Body mass index (BMI) [Ratio] 31.21 kg/m2 Azam Rose MD Work Phone: [facility] 01-11-2023 04:43-0400 Body weight 77.4 kg Azam Rose MD Work Phone: [facility] [employer] 01-02-2023 08:47-0400 Body height 157.5 cm Azam Rose MD Work Phone: [facility] 01-01-2023 10:48-0400 SaO2% (BldA) [Mass fraction] 99.2 % Azam Rose MD Work Phone: [facility] 12-23-2022 10:18-0400 Body height 157.5 cm Azam Rose MD Work Phone: [facility] 12-23-2022 10:18-0400 Body mass index (BMI) [Ratio] 31.17 kg/m2 Azam Rose MD Work Phone: [facility] [facility] 12-23-2022 10:18-0400 Body weight 77.29 kg Azam Rose MD Work Phone: [facility] [facility] 12-23-2022 10:18-0400 Diastolic blood pressure 78 mm[Hg] Azam Rose MD Work Phone: [facility] [facility] 12-23-2022 10:18-0400 Heart rate 91 /min Azam Rose MD Work Phone: [facility] [facility] 12-23-2022 10:18-0400 Systolic blood pressure 140 mm[Hg] Azam Rose MD Work Phone: [facility] [facility] 12-19-2022 14:00-0400 Body temperature 97.2 [degF] Dr. Mayda Garcia Work Phone: [facility] 12-19-2022 14:00-0400 Diastolic blood pressure 69 mm[Hg] Dr. Mayda Garcia Work Phone: [facility] 12-19-2022 14:00-0400 Heart rate 92 /min Dr. Mayda Garcia Work Phone: [facility] 12-19-2022 14:00-0400 Respiratory rate 18 /min Dr. Mayda Garcia Work Phone: [facility] 12-19-2022 14:00-0400 SaO2% (BldA) [Mass fraction] 100 % Dr. Mayda Garcia Work Phone: [facility] 12-19-2022 14:00-0400 Systolic blood pressure 140 mm[Hg] Dr. Mayda Garcia Work Phone: [facility] 12-18-2022 10:26-0400 Body height 157.[address] Mayda Garcia Work Phone: [facility] 12-18-2022 10:26-0400 Body mass index (BMI) [Ratio] 31.4 kg/m2 Dr. Mayda Garcia Work Phone: [facility] 12-18-2022 10:26-0400 Body weight 77.[address] Mayda Garcia Work Phone: [facility] 12-18-2022 10:00-0400 Respiratory rate 18 /min Dr. Mayda Garcia Work Phone: [facility] 12-18-2022 09:15-0400 Body temperature 98.1 [degF] Dr. Mayda Garcia Work Phone: [facility] 12-18-2022 09:15-0400 Diastolic blood pressure 72 mm[Hg] Dr. Mayda Garcia Work Phone: [facility] 12-18-2022 09:15-0400 Heart rate 74 /min Dr. Mayda Garcia Work Phone: [facility] 12-18-2022 09:15-0400 SaO2% (BldA) [Mass fraction] 95 % Dr. Mayda Garcia Work Phone: [facility] 12-18-2022 09:15-0400 Systolic blood pressure 148 mm[Hg] Dr. Mayda Garcia Work Phone: [facility] 12-18-2022 05:23-0400 Body height 187.[address] Mayda Garcia Work Phone: [facility] 12-18-2022 05:23-0400 Body mass index (BMI) [Ratio] 22.4 kg/m2 Dr. Mayda Garcia Work Phone: [facility] 12-18-2022 05:23-0400 Body weight 79.[address] Mayda Garcia Work Phone: [facility] 12-11-2022 14:43-0400 Body mass index (BMI) [Ratio] 30.9 kg/m2 Dr. Mayda Garcia Work Phone: [facility] 12-11-2022 14:43-0400 Body temperature 98.3 [degF] Dr. Mayda Garcia Work Phone: [facility] 12-11-2022 14:43-0400 Body weight 76.[address] Mayda Garcia Work Phone: [facility] 12-11-2022 14:43-0400 Diastolic blood pressure 76 mm[Hg] Dr. Mayda Garcia Work Phone: [facility] 12-11-2022 14:43-0400 Heart rate 97 /min Dr. Mayda Garcia Work Phone: [facility] 12-11-2022 14:43-0400 Respiratory rate 16 /min Dr. Mayda Garcia Work Phone: [facility] 12-11-2022 14:43-0400 SaO2% (BldA) [Mass fraction] 97 % Dr. Mayda Garcia Work Phone: [facility] 12-11-2022 14:43-0400 Systolic blood pressure 124 mm[Hg] Dr. Mayda Garcia Work Phone: [facility] 11-19-2022 14:56-0400 Body mass index (BMI) [Ratio] 31.7 kg/m2 Dr. Mayda Garcia Work Phone: [facility] 11-19-2022 14:56-0400 Body temperature 97.7 [degF] Dr. Mayda Garcia Work Phone: [facility] 11-19-2022 14:56-0400 Body weight 78.[address] Mayda Garcia Work Phone: [facility] 11-19-2022 14:56-0400 Diastolic blood pressure 78 mm[Hg] Dr. Mayda Garcia Work Phone: [facility] 11-19-2022 14:56-0400 Heart rate 90 /min Dr. Mayda Garcia Work Phone: [facility] 11-19-2022 14:56-0400 Respiratory rate 14 /min Dr. Mayda Garcia Work Phone: [facility] 11-19-2022 14:56-0400 SaO2% (BldA) [Mass fraction] 98 % Dr. Mayda Garcia Work Phone: [facility] 11-19-2022 14:56-0400 Systolic blood pressure 130 mm[Hg] Dr. Mayda Garcia Work Phone: [facility] 10-10-2022 11:04-0400 Body height 157.[address] Mayda Garcia Work Phone: [facility] 10-10-2022 11:04-0400 Body mass index (BMI) [Ratio] 31.4 kg/m2 Dr. Mayda Garcia Work Phone: [facility] 10-10-2022 11:04-0400 Body weight 78.[address] Mayda Garcia Work Phone: [facility] 10-03-2022 10:42-0400 Body height 157.[address] Mayda Garcia Work Phone: [facility] 10-03-2022 10:42-0400 Body mass index (BMI) [Ratio] 31.7 kg/m2 Dr. Mayda Garcia Work Phone: [facility] 10-03-2022 10:42-0400 Body temperature 97.1 [degF] Dr. Mayda Garcia Work Phone: [facility] 10-03-2022 10:42-0400 Body weight 78.[address] Mayda Garcia Work Phone: [facility] 10-03-2022 10:42-0400 Diastolic blood pressure 84 mm[Hg] Dr. Mayda Garcia Work Phone: [facility] 10-03-2022 10:42-0400 Heart rate 112 /min Dr. Mayda Garcia Work Phone: [facility] 10-03-2022 10:42-0400 Respiratory rate 18 /min Dr. Mayda Garcia Work Phone: [facility] 10-03-2022 10:42-0400 SaO2% (BldA) [Mass fraction] 98 % Dr. Mayda Garcia Work Phone: [facility] 10-03-2022 10:42-0400 Systolic blood pressure 138 mm[Hg] Dr. Mayda Garcia Work Phone: [facility] 10-02-2022 11:41-0400 Body mass index (BMI) [Ratio] 31.5 kg/m2 Dr. Mayda Garcia Work Phone: [facility] 10-02-2022 11:41-0400 Body temperature 98 [degF] Dr. Mayda Garcia Work Phone: [facility] 10-02-2022 11:41-0400 Body weight 78.[address] Mayda Garcia Work Phone: [facility] 10-02-2022 11:41-0400 Diastolic blood pressure 60 mm[Hg] Dr. Mayda Garica Work Phone: [facility] 10-02-2022 11:41-0400 Heart rate 91 /min Dr. Mayda Garcia Work Phone: [facility] 10-02-2022 11:41-0400 Respiratory rate 17 /min Dr. Mayda Garcia Work Phone: [facility] 10-02-2022 11:41-0400 SaO2% (BldA) [Mass fraction] 97 % Dr. Mayda Garcia Work Phone: [facility] 10-02-2022 11:41-0400 Systolic blood pressure 118 mm[Hg] Dr. Mayda Garcia Work Phone: [facility] 08-22-2022 15:19-0400 Body mass index (BMI) [Ratio] 32.1 kg/m2 Dr. Mayda Garcia Work Phone: [facility] 08-22-2022 15:19-0400 Body temperature 98 [degF] Dr. Mayda Garcia Work Phone: [facility] 08-22-2022 15:19-0400 Body weight 79.[address] Mayda Garcia Work Phone: [facility] 08-22-2022 15:19-0400 Diastolic blood pressure 72 mm[Hg] Dr. Mayda Garcia Work Phone: [facility] 08-22-2022 15:19-0400 Heart rate 89 /min Dr. Mayda Garcia Work Phone: [facility] 08-22-2022 15:19-0400 Respiratory rate 16 /min Dr. Mayda Garcia Work Phone: [facility] 08-22-2022 15:19-0400 SaO2% (BldA) [Mass fraction] 97 % Dr. Mayda Garcia Work Phone: [facility] 08-22-2022 15:19-0400 Systolic blood pressure 130 mm[Hg] Dr. Mayda Garcia Work Phone: [facility] 08-14-2022 01:11-0400 Diastolic blood pressure 81 mm[Hg] Dr. Mayda Garcia Work Phone: [facility] 08-14-2022 01:11-0400 Heart rate 87 /min Dr. Mayda Garcia Work Phone: [facility] 08-14-2022 01:11-0400 Respiratory rate 17 /min Dr. Mayda Garcia Work Phone: [facility] 08-14-2022 01:11-0400 SaO2% (BldA) [Mass fraction] 100 % Dr. Mayda Garcia Work Phone: [facility] 08-14-2022 01:11-0400 Systolic blood pressure 163 mm[Hg] Dr. Mayda Garcia Work Phone: [facility] 08-13-2022 21:57-0400 Body height 157.[address] Mayda Garcia Work Phone: [facility] 08-13-2022 21:57-0400 Body mass index (BMI) [Ratio] 35.2 kg/m2 Dr. Mayda Garcia Work Phone: [facility] 08-13-2022 21:57-0400 Body temperature 98.2 [degF] Dr. Mayda Garcia Work Phone: [facility] 08-13-2022 21:57-0400 Body weight 87.[address] Mayda Garcia Work Phone: [facility] 06-30-2022 10:56-0500 Body mass index (BMI) [Ratio] 32.1 kg/m2 Dr. Mayda Garcia Work Phone: [facility] 06-30-2022 10:56-0500 Body temperature 98.8 [degF] Dr. Mayda Garcia Work Phone: [facility] 06-30-2022 10:56-0500 Body weight 79.[address] Mayda Garcia Work Phone: [facility] 06-30-2022 10:56-0500 Diastolic blood pressure 80 mm[Hg] Dr. Mayda Garcia Work Phone: [facility] 06-30-2022 10:56-0500 Heart rate 87 /min Dr. Mayda Garcia Work Phone: [facility] 06-30-2022 10:56-0500 Respiratory rate 16 /min Dr. Mayda Garcia Work Phone: [facility] 06-30-2022 10:56-0500 SaO2% (BldA) [Mass fraction] 99 % Dr. Mayda Garcia Work Phone: [facility] 06-30-2022 10:56-0500 Systolic blood pressure 128 mm[Hg] Dr. Mayda Garcia Work Phone: [facility] 06-09-2022 13:30-0500 Body mass index (BMI) [Ratio] 35.6 kg/m2 Dr. Mayda Garcia Work Phone: [facility] 06-09-2022 13:30-0500 Body temperature 98.5 [degF] Dr. Mayda Garcia Work Phone: [facility] 06-09-2022 13:30-0500 Body weight 88.[address] Mayda Garcia Work Phone: [facility] 06-09-2022 13:30-0500 Diastolic blood pressure 74 mm[Hg] Dr. Mayda Garcia Work Phone: [facility] 06-09-2022 13:30-0500 Heart rate 102 /min Dr. Mayda Garcia Work Phone: [facility] 06-09-2022 13:30-0500 Respiratory rate 16 /min Dr. Mayda Garcia Work Phone: [facility] 06-09-2022 13:30-0500 SaO2% (BldA) [Mass fraction] 96 % Dr. Mayda Garcia Work Phone: [facility] 06-09-2022 13:30-0500 Systolic blood pressure 136 mm[Hg] Dr. Mayda Garcia Work Phone: [facility] 06-07-2022 17:41-0500 Body height 157.[address] Mayda Garcia Work Phone: [facility] 06-07-2022 17:41-0500 Body mass index (BMI) [Ratio] 35.6 kg/m2 Dr. Mayda Garcia Work Phone: [facility] 06-07-2022 17:41-0500 Body temperature 97.9 [degF] Dr. Mayda Garcia Work Phone: [facility] 06-07-2022 17:41-0500 Body weight 88.[address] Mayda Garcia Work Phone: [facility] 06-07-2022 17:41-0500 Diastolic blood pressure 85 mm[Hg] Dr. Mayda Garcia Work Phone: [facility] 06-07-2022 17:41-0500 Heart rate 90 /min Dr. Mayda Garcia Work Phone: [facility] 02-04-2023 17:41-0500 Respiratory rate 18 /min Dr. Mayda Garcia Work Phone: [facility] 06-07-2022 17:41-0500 SaO2% (BldA) [Mass fraction] 100 % Dr. Mayda Garcia Work Phone: [facility] 06-07-2022 17:41-0500 Systolic blood pressure 180 mm[Hg] Dr. Mayda Garcia Work Phone: [facility] 06-06-2022 14:05-0500 Respiratory rate 18 /min Dr. Mayda Garcia Work Phone: [facility] 06-06-2022 13:04-0500 Diastolic blood pressure 70 mm[Hg] Dr. Mayda Garcia Work Phone: [facility] 06-06-2022 13:04-0500 Heart rate 79 /min Dr. Mayda Garcia Work Phone: [facility] 06-06-2022 13:04-0500 Systolic blood pressure 133 mm[Hg] Dr. Mayda Garcia Work Phone: [facility] 06-06-2022 12:27-0500 SaO2% (BldA) [Mass fraction] 98 % Dr. Mayda Garcia Work Phone: [facility] 06-06-2022 09:11-0500 Body mass index (BMI) [Ratio] 33.7 kg/m2 Dr. Mayda Garcia Work Phone: [facility] 06-06-2022 09:11-0500 Body temperature 98.1 [degF] Dr. Mayda Garcia Work Phone: [facility] 06-06-2022 09:11-0500 Body weight 83.[address] Mayda Garcia Work Phone: [facility] 05-06-2022 13:32-0500 Body temperature 96.2 [degF] Dr. Mayda Garcia Work Phone: [facility] 05-06-2022 13:32-0500 Body weight 80.[address] Mayda Garcia Work Phone: [facility] 05-06-2022 13:32-0500 Diastolic blood pressure 66 mm[Hg] Dr. Mayda Garcia Work Phone: [facility] 05-06-2022 13:32-0500 Heart rate 89 /min Dr. Mayda Garcia Work Phone: [facility] 05-06-2022 13:32-0500 Respiratory rate 16 /min Dr. Mayda Garcia Work Phone: [facility] 05-06-2022 13:32-0500 SaO2% (BldA) [Mass fraction] 96 % Dr. Mayda Garcia Work Phone: [facility] 05-06-2022 13:32-0500 Systolic blood pressure 136 mm[Hg] Dr. Mayda Garcia Work Phone: [facility] 04-02-2022 11:18-0500 Body height 157.[address] Mayda Garcia Work Phone: [facility] 04-02-2022 11:18-0500 Body mass index (BMI) [Ratio] 32 kg/m2 Dr. Mayda Garcia Work Phone: [facility] 04-02-2022 11:18-0500 Body temperature 98.5 [degF] Dr. Mayda Garcia Work Phone: [facility] 04-02-2022 11:18-0500 Body weight 79.[address] Mayda Garcia Work Phone: [facility] 04-02-2022 11:18-0500 Diastolic blood pressure 64 mm[Hg] Dr. Mayda Garcia Work Phone: [facility] 04-02-2022 11:18-0500 Heart rate 100 /min Dr. Mayda Garcia Work Phone: [facility] 04-02-2022 11:18-0500 Respiratory rate 14 /min Dr. Mayda Garcia Work Phone: [facility] 04-02-2022 11:18-0500 SaO2% (BldA) [Mass fraction] 99 % Dr. Mayda Garcia Work Phone: [facility] 04-02-2022 11:18-0500 Systolic blood pressure 104 mm[Hg] Dr. Mayda Garcia Work Phone: [facility] 03-29-2022 10:32-0500 Body height 157.[address] Mayda Garcia Work Phone: [facility] Work Phone: 03-29-2022 10:32-0500 Body mass index (BMI) [Ratio] 32.8 kg/m2 Dr. Mayda Garcia Work Phone: [facility] 03-29-2022 10:32-0500 Body temperature 96 [degF] Dr. Mayda Garcia Work Phone: [facility] 03-29-2022 10:32-0500 Body weight 81.[address] Mayda Garcia Work Phone: [facility] 03-29-2022 10:32-0500 Diastolic blood pressure 93 mm[Hg] Dr. Mayda Garcia Work Phone: [facility] 03-29-2022 10:32-0500 Heart rate 88 /min Dr. Mayda Garcia Work Phone: [facility] 03-29-2022 10:32-0500 Respiratory rate 18 /min Dr. Mayda Garcia Work Phone: [facility] 03-29-2022 10:32-0500 SaO2% (BldA) [Mass fraction] 100 % Dr. Mayda Garcia Work Phone: [facility] 03-29-2022 10:32-0500 Systolic blood pressure 151 mm[Hg] Dr. Mayda Garcia Work Phone: [facility] 03-14-2022 20:13-0500 Diastolic blood pressure 85 mm[Hg] Dr. Mayda Garcia Work Phone: [facility] 03-14-2022 20:13-0500 Heart rate 93 /min Dr. Mayda Garcia Work Phone: [facility] 03-14-2022 20:13-0500 Respiratory rate 18 /min Dr. Mayda Garcia Work Phone: [facility] 03-14-2022 20:13-0500 SaO2% (BldA) [Mass fraction] 98 % Dr. Mayda Garcia Work Phone: [facility] 03-14-2022 20:13-0500 Systolic blood pressure 150 mm[Hg] Dr. Mayda Garcia Work Phone: [facility] 03-14-2022 16:12-0500 Body height 157.[address] Mayda Garcia Work Phone: [facility] Work Phone: 03-14-2022 16:12-0500 Body mass index (BMI) [Ratio] 33 kg/m2 Dr. Mayda Garcia Work Phone: [facility] 03-14-2022 16:12-0500 Body temperature 97.1 [degF] Dr. Mayda Garcia Work Phone: [facility] 03-14-2022 16:12-0500 Body weight 81.[address] Mayda Garcia Work Phone: [facility] 03-10-2022 10:13-0500 Body mass index (BMI) [Ratio] 33.3 kg/m2 Dr. Mayda Garcia Work Phone: [facility] 03-10-2022 10:13-0500 Body temperature 98.2 [degF] Dr. Mayda Garcia Work Phone: [facility] 03-10-2022 10:13-0500 Body weight 82.[address] Mayda Garcia Work Phone: [facility] 03-10-2022 10:13-0500 Diastolic blood pressure 76 mm[Hg] Dr. Mayda Garcia Work Phone: [facility] 03-10-2022 10:13-0500 Heart rate 94 /min Dr. Mayda Garcia Work Phone: [facility] 03-10-2022 10:13-0500 Respiratory rate 18 /min Dr. Mayda Garcia Work Phone: [facility] 03-10-2022 10:13-0500 SaO2% (BldA) [Mass fraction] 96 % Dr. Mayda Garcia Work Phone: [facility] 03-10-2022 10:13-0500 Systolic blood pressure 118 mm[Hg] Dr. Mayda Garcia Work Phone: [facility] 01-14-2022 12:21-0400 Body height 157.[address] Mayda Garcia Work Phone: [facility] Work Phone: 01-14-2022 12:21-0400 Body mass index (BMI) [Ratio] 31.6 kg/m2 Dr. Mayda Garcia Work Phone: [facility] Work Phone: 01-14-2022 12:21-0400 Body weight 78.[address] Mayda Garcia Work Phone: [facility] Work Phone: 01-14-2022 12:21-0400 Diastolic blood pressure 80 mm[Hg] Dr. Mayda Garcia Work Phone: [facility] Work Phone: 01-14-2022 12:21-0400 Heart rate 102 /min Dr. Mayda Garcia Work Phone: [facility] Work Phone: 01-14-2022 12:21-0400 Respiratory rate 16 /min Dr. Mayda Garcia Work Phone: [facility] Work Phone: 01-14-2022 12:21-0400 SaO2% (BldA) [Mass fraction] 98 % Dr. Mayda Garcia Work Phone: [facility] Work Phone: 01-14-2022 12:21-0400 Systolic blood pressure 130 mm[Hg] Dr. Mayda Garcia Work Phone: [facility] Work Phone: 01-10-2022 09:51-0400 Body mass index (BMI) [Ratio] 32.1 kg/m2 Dr. Mayda Garcia Work Phone: [facility] Work Phone: 01-10-2022 09:51-0400 Body temperature 97 [degF] Dr. Mayda Garcia Work Phone: [facility] Work Phone: 01-10-2022 09:51-0400 Body weight 79.[address] Mayda Garcia Work Phone: [facility] Work Phone: 01-10-2022 09:51-0400 Diastolic blood pressure 78 mm[Hg] Dr. Mayda Garcia Work Phone: [facility] Work Phone: 01-10-2022 09:51-0400 Heart rate 80 /min Dr. Mayda Garcia Work Phone: [facility] Work Phone: 01-10-2022 09:51-0400 Respiratory rate 16 /min Dr. Mayda Garcia Work Phone: [facility] Work Phone: 01-10-2022 09:51-0400 SaO2% (BldA) [Mass fraction] 98 % Dr. Mayda Garcia Work Phone: [facility] Work Phone: 01-10-2022 09:51-0400 Systolic blood pressure 100 mm[Hg] Dr. Mayda Garcia Work Phone: [facility] Work Phone: 01-03-2022 13:14-0400 Body temperature 97.3 [degF] Dr. Mayda Garcia Work Phone: [facility] Work Phone: 01-03-2022 13:14-0400 Diastolic blood pressure 77 mm[Hg] Dr. Mayda Garcia Work Phone: [facility] Work Phone: 01-03-2022 13:14-0400 Heart rate 77 /min Dr. Mayda Garcia Work Phone: [facility] Work Phone: 01-03-2022 13:14-0400 Respiratory rate 18 /min Dr. Mayda Garcia Work Phone: [facility] Work Phone: 01-03-2022 13:14-0400 SaO2% (BldA) [Mass fraction] 99 % Dr. Mayda Garcia Work Phone: [facility] Work Phone: 01-03-2022 13:14-0400 Systolic blood pressure 123 mm[Hg] Dr. Mayda Garcia Work Phone: [facility] Work Phone: 01-03-2022 06:00-0400 Body weight 81.[address] Mayda Garcia Work Phone: [facility] Work Phone: 01-02-2022 12:50-0400 Body height 157.[address] Mayda Garcia Work Phone: [facility] Work Phone: 01-02-2022 12:50-0400 Body mass index (BMI) [Ratio] 32.7 kg/m2 Dr. Mayda Garcia Work Phone: [facility] Work Phone: 12-23-2021 15:00-0400 Body mass index (BMI) [Ratio] 30.4 kg/m2 Dr. Mayda Garcia Work Phone: [facility] Work Phone: 12-23-2021 15:00-0400 Body temperature 98.7 [degF] Dr. Mayda Garcia Work Phone: [facility] Work Phone: 12-23-2021 15:00-0400 Body weight 80.[address] Mayda Garcia Work Phone: [facility] Work Phone: 12-23-2021 15:00-0400 Diastolic blood pressure 64 mm[Hg] Dr. Mayda Garcia Work Phone: [facility] Work Phone: 12-23-2021 15:00-0400 Heart rate 92 /min Dr. Mayda Garcia Work Phone: [facility] Work Phone: 12-23-2021 15:00-0400 Respiratory rate 18 /min Dr. Mayda Garcia Work Phone: [facility] Work Phone: 12-23-2021 15:00-0400 SaO2% (BldA) [Mass fraction] 97 % Dr. Mayda Garcia Work Phone: [facility] Work Phone: 12-23-2021 15:00-0400 Systolic blood pressure 140 mm[Hg] Dr. Mayda Garcia Work Phone: [facility] Work Phone: 12-17-2021 05:21-0400 Diastolic blood pressure 62 mm[Hg] Dr. Mayda Garcia Work Phone: [facility] Work Phone: 12-17-2021 05:21-0400 Heart rate 97 /min Dr. Mayda Garcia Work Phone: [facility] Work Phone: 12-17-2021 05:21-0400 Respiratory rate 18 /min Dr. Mayda Garcia Work Phone: [facility] Work Phone: 12-17-2021 05:21-0400 SaO2% (BldA) [Mass fraction] 98 % Dr. Mayda Garcia Work Phone: [facility] Work Phone: 12-17-2021 05:21-0400 Systolic blood pressure 154 mm[Hg] Dr. Mayda Garcia Work Phone: [facility] Work Phone: 12-17-2021 03:52-0400 Body height 162.[address] Mayda Garcia Work Phone: [facility] Work Phone: 12-17-2021 03:52-0400 Body mass index (BMI) [Ratio] 31 kg/m2 Dr. Mayda Garcia Work Phone: [facility] Work Phone: 12-17-2021 03:52-0400 Body temperature 97.8 [degF] Dr. Mayda Garcia Work Phone: [facility] Work Phone: 12-17-2021 03:52-0400 Body weight 82.[address] Mayda Garcia Work Phone: [facility] Work Phone: 11-28-2021 19:34-0400 Body height 187.[address] Mayda Garcia Work Phone: [facility] Work Phone: 11-28-2021 19:34-0400 Body mass index (BMI) [Ratio] 22.4 kg/m2 Dr. Mayda Garcia Work Phone: [facility] Work Phone: 11-28-2021 19:34-0400 Body temperature 98.6 [degF] Dr. Mayda Garcia Work Phone: [facility] Work Phone: 11-28-2021 19:34-0400 Body weight 79.[address] Mayda Garcia Work Phone: [facility] Work Phone: 11-28-2021 19:34-0400 Diastolic blood pressure 74 mm[Hg] Dr. Mayda Garica Work Phone: [facility] Work Phone: 11-28-2021 19:34-0400 Heart rate 109 /min Dr. Mayda Garcia Work Phone: [facility] Work Phone: 11-28-2021 19:34-0400 Respiratory rate 18 /min Dr. Mayda Garcia Work Phone: [facility] Work Phone: 11-28-2021 19:34-0400 SaO2% (BldA) [Mass fraction] 99 % Dr. Mayda Garcia Work Phone: [facility] Work Phone: 11-28-2021 19:34-0400 Systolic blood pressure 167 mm[Hg] Dr. Mayda Garcia Work Phone: [facility] Work Phone: 11-06-2021 16:11-0400 Body mass index (BMI) [Ratio] 32.5 kg/m2 Dr. Mayda Garcia Work Phone: [facility] Work Phone: 11-06-2021 16:11-0400 Body temperature 98.4 [degF] Dr. Mayda Garcia Work Phone: [facility] Work Phone: 11-06-2021 16:11-0400 Body weight 80.[address] Mayda Garcia Work Phone: [facility] Work Phone: 11-06-2021 16:11-0400 Diastolic blood pressure 70 mm[Hg] Dr. Mayda Garcia Work Phone: [facility] Work Phone: 11-06-2021 16:11-0400 Heart rate 97 /min Dr. Mayda Garcia Work Phone: [facility] Work Phone: 11-06-2021 16:11-0400 Respiratory rate 18 /min Dr. Mayda Garcia Work Phone: [facility] Work Phone: 11-06-2021 16:11-0400 SaO2% (BldA) [Mass fraction] 97 % Dr. Mayda Garcia Work Phone: [facility] Work Phone: 11-06-2021 16:11-0400 Systolic blood pressure 130 mm[Hg] Dr. Mayda Garcia Work Phone: [facility] Work Phone: 11-05-2021 10:56-0400 Body mass index (BMI) [Ratio] 32.3 kg/m2 Dr. Mayda Garcia Work Phone: [facility] Work Phone: 11-05-2021 10:56-0400 Body temperature 97.4 [degF] Dr. Mayda Garcia Work Phone: [facility] Work Phone: 11-05-2021 10:56-0400 Body weight 80.[address] Mayda Garcia Work Phone: [facility] Work Phone: 11-05-2021 10:56-0400 Diastolic blood pressure 78 mm[Hg] Dr. Mayda Garcia Work Phone: [facility] Work Phone: 11-05-2021 10:56-0400 Heart rate 91 /min Dr. Mayda Garcia Work Phone: [facility] Work Phone: 11-05-2021 10:56-0400 Respiratory rate 16 /min Dr. Mayda Garcia Work Phone: [facility] Work Phone: 11-05-2021 10:56-0400 SaO2% (BldA) [Mass fraction] 98 % Dr. Mayda Garcia Work Phone: [facility] Work Phone: 11-05-2021 10:56-0400 Systolic blood pressure 144 mm[Hg] Dr. Mayda Garcia Work Phone: [facility] Work Phone: 10-25-2021 15:34-0400 Body temperature 98.9 [degF] Dr. Mayda Garcia Work Phone: [facility] Work Phone: 10-25-2021 15:34-0400 Diastolic blood pressure 64 mm[Hg] Dr. Mayda Garcia Work Phone: [facility] Work Phone: 10-25-2021 15:34-0400 Heart rate 78 /min Dr. Mayda Garcia Work Phone: [facility] Work Phone: 10-25-2021 15:34-0400 Respiratory rate 12 /min Dr. Mayda Garcia Work Phone: [facility] Work Phone: 10-25-2021 15:34-0400 SaO2% (BldA) [Mass fraction] 98 % Dr. Mayda Garcia Work Phone: [facility] Work Phone: 10-25-2021 15:34-0400 Systolic blood pressure 126 mm[Hg] Dr. Mayda Garcia Work Phone: [facility] Work Phone: 10-25-2021 13:34-0400 Body height 157.[address] Mayda Garcia Work Phone: [facility] Work Phone: 10-25-2021 13:34-0400 Body mass index (BMI) [Ratio] 32.9 kg/m2 Dr. Mayda Garcia Work Phone: [facility] Work Phone: 10-25-2021 13:34-0400 Body weight 81.[address] Mayda Garcia Work Phone: [facility] Work Phone: 10-17-2021 10:00-0400 Body mass index (BMI) [Ratio] 31.6 kg/m2 Dr. Mayda Garcia Work Phone: [facility] Work Phone: 10-17-2021 10:00-0400 Body weight 78.[address] Mayda Garcia Work Phone: [facility] Work Phone: 10-17-2021 10:00-0400 Diastolic blood pressure 60 mm[Hg] Dr. Mayda Garcia Work Phone: [facility] Work Phone: 10-17-2021 10:00-0400 Heart rate 79 /min Dr. Mayda Garcia Work Phone: [facility] Work Phone: 10-17-2021 10:00-0400 Respiratory rate 16 /min Dr. Mayda Garcia Work Phone: [facility] Work Phone: 10-17-2021 10:00-0400 SaO2% (BldA) [Mass fraction] 99 % Dr. Mayda Garcia Work Phone: [facility] Work Phone: 10-17-2021 10:00-0400 Systolic blood pressure 106 mm[Hg] Dr. Mayda Garcia Work Phone: [facility] Work Phone: 07-16-2021 13:57-0400 Body mass index (BMI) [Ratio] 32.4 kg/m2 Dr. Mayda Garcia Work Phone: [facility] Work Phone: 07-16-2021 13:57-0400 Diastolic blood pressure 84 mm[Hg] Dr. Mayda Garcia Work Phone: [facility] Work Phone: 07-16-2021 13:57-0400 Systolic blood pressure 150 mm[Hg] Dr. Mayda Garcia Work Phone: [facility] Work Phone: 07-16-2021 13:05-0400 Body weight 80.[address] Mayda Garcia Work Phone: [facility] Work Phone: 07-16-2021 13:05-0400 Heart rate 106 /min Dr. Mayda Garcia Work Phone: [facility] Work Phone: 07-16-2021 13:05-0400 SaO2% (BldA) [Mass fraction] 97 % Dr. Mayda Garcia Work Phone: [facility] Work Phone: Encounters Encounter Date Encounter Type Care Provider Facility Start: 11-11-2024 ambulatory Vanita Venegas NP Fac ility:[facility] Start: 11-07-2024 End: 11-07-2024 Dr. Pepe Ruiz MD -[facility] Work Phone: Start: 11-07-2024 End: 11-07-[address] Mayda Garcia MD Work Phone: -[facility] Start: 10-20-2024 End: 10-20-[address] Mayda Garcia MD Work Phone: [facility] Work Phone: Start: 10-20-2024 End: 10-20-2024 Vanita Venegas NP-C -Sleep Lab Work Phone: Start: 10-20-2024 End: 10-20-2024 ambulatory Vanita Venegas NP Facility:[facility] Start: 10-03-2024 End: 10-03-2024 Dr. Pepe Ruiz MD -[facility] Work Phone: Start: 10-03-2024 End: 10-03-[address] Mayda Garcia MD Work Phone: [facility] Work Phone: Start: 09-28-2024 End: 09-28-2024 Vanita Venegas PRODUCTIVITY ENGINEER-C -[facility] Work Phone: Start: 09-28-2024 End: 09-28-[address] Mayda Garcia MD Work Phone: [facility] Work Phone: Start: 09-22-2024 End: 09-22-[address] Mayda Garcia MD Work Phone: [facility] Work Phone: Start: 09-22-2024 End: 09-22-2024 Dr. Mayda Garcia MD -Laboratory [facility] Start: 09-21-2024 End: 09-21-2024 Dr. Mayda Garcia MD -[facility] Work Phone: Start: 09-21-2024 End: 09-22-[address] Mayda Garcia MD Work Phone: [facility] Work Phone: Start: 09-19-2024 End: 09-19-2024 Mikhail LÓPEZ -[facility] Work Phone: Start: 09-19-2024 End: 09-19-[address] Mayda Garcia MD Work Phone: [facility] Work Phone: Start: 09-16-2024 End: 09-16-2024 Dr. Mayda Garcia MD Work Phone: -Emergency Department Work Phone: Start: 09-16-2024 End: 09-16-2024 Emergency department patient visit Dr. Mayda Garcia MD Work Phone: [facility] Work Phone: Start: 08-11-2024 ambulatory Norisrosemary Espinozachandana [place] Start: 08-10-2024 End: 08-10-2024 Dr. Mayda Garcia MD -[facility] Work Phone: Start: 08-10-2024 End: 08-10-2024 ambulatory Mayda Garcia [place] Start: 07-22-2024 ambulatory [facility] ty:[facility] Start: 07-15-2024 End: 07-15-2024 Dr. Mayda Garcia MD Work Phone: -Emergency Department Work Phone: Start: 07-15-2024 End: 07-15-2024 Emergency department patient visit Dr. Mayda Garcia MD Work Phone: [facility] Work Phone: Start: 07-14-2024 End: 07-14-2024 Emergency department patient visit Dr. Mayda Garcia MD Work Phone: [facility] Work Phone: Start: 07-14-2024 End: 07-14-2024 Dr. Mayda Garcia MD Work Phone: -Emergency Department Work Phone: Start: 07-05-2024 End: 07-05-2024 Dr. Pepe Ruiz MD -[facility] Work Phone: Start: 07-05-2024 End: 07-05-2024 ambulatory Pepe Ruiz Facility:[facility] Start: 06-22-2024 End: 06-22-2024 Dr. Yee Rowland MD -[facility] Work Phone: Start: 06-22-2024 End: 06-22-2024 ambulatory [facility] Facility:[facility] Start: 06-07-2024 End: 06-07-2024 Dr. Mayda Garcia MD -Outpatient Breast Imaging Work Phone: Start: 06-07-2024 End: 06-07-2024 ambulatory [facility] Facility:[facility] Start: 05-20-2024 End: 05-20-2024 Dr. Mayda Garcia MD -[facility] Work Phone: Start: 05-20-2024 End: 05-20-2024 ambulatory [facility] Facility:[facility] Start: 05-16-2024 End: 05-16-2024 [facility] Start: 05-16-2024 End: 05-16-2024 Dr. Pepe Ruiz MD -[facility] Work Phone: Start: 05-16-2024 End: 05-16-2024 ambulatory [facility] Start: 05-16-2024 End: 05-16-2024 ambulatory [facility] Facility:[facility] Start: 04-25-2024 ambulatory Vanita Venegas PRODUCTIVITY ENGINEER Fac ility:[facility] Start: 04-25-2024 Dr. Russell Jang DO -[facility] Start: 04-21-2024 End: 04-21-2024 Dr. Pepe Ruiz MD -[facility] Work Phone: Start: 04-21-2024 End: 04-21-2024 [facility] Start: 04-20-2024 End: 04-20-2024 Vanita Venegas PRODUCTIVITY ENGINEER-C -Pulmonary Services/Neurology Work Phone: Start: 04-19-2024 End: 04-19-2024 Dr. Winston Johnson MD -[facility] Work Phone: Start: 04-19-2024 End: 04-20-2024 ambulatory Vanita Venegas PRODUCTIVITY ENGINEER Facility:[facility] Start: 04-04-2024 ambulatory Vanita Venegas PRODUCTIVITY ENGINEER Fac ility:[facility] Start: 02-19-2024 End: 02-19-2024 ambulatory Janee Dumontpatricia Facility:[facility] Start: 02-19-2024 End: 02-19-2024 ambulatory Janeevinny Millsosman Facility:[facility] Start: 02-14-2024 End: 02-14-2024 Emergency department patient visit Ulisses Rocio Facility:[facility] Start: 01-19-2024 End: 01-19-2024 ambulatory Mayda Espinozae Facility:[facility] Start: 01-05-2024 End: 01-05-2024 ambulatory Pepe Ruiz Facility:[facility] Start: 12-23-2023 End: 12-23-2023 ambulatory Efewrosemary Espinozae Facility:[facility] Start: 12-21-2023 ambulatory Mynor Miller Facility:[facility] Start: 12-16-2023 End: 12-17-2023 ambulatory Vanita Venegas PRODUCTIVITY ENGINEER Facility:[facility] Start: 12-07-2023 End: 12-07-2023 ambulatory Vanita Venegas PRODUCTIVITY ENGINEER Facility:[facility] Start: 12-02-2023 End: 12-02-2023 ambulatory Mynor Miller Facility:[facility] Start: 12-02-2023 End: 12-02-2023 ambulatory Yee Rowland Facility:[facility] Start: 11-16-2023 ambulatory Mayda Garcia Facili ty:[facility] Start: 11-16-2023 ambulatory Maurilio Bradford Facility:[facility] Start: 11-15-2023 End: 11-18-2023 ambulatory Maurilio Bradford Facility:[facility] Start: 09-07-2023 End: 09-07-[address] Mayda Garcia Work Phone: [facility] Work Phone: Start: 09-07-2023 End: 09-07-[address] Mayda Garcia Work Phone: [facility] Work Phone: Start: 08-19-2023 End: 08-19-[address] Mayda Garcia Work Phone: [facility] Internal Medicine Work Phone: Start: 08-19-2023 End: 09-01-[address] Mayda Garcia Work Phone: [facility] Work Phone: Start: 08-19-2023 End: 09-01-[address] Mayda Garcia Work Phone: [facility]-Cardiac Rehab Work Phone: Start: 08-19-[address] Susan Garcia Work Phone: [facility]-Cardiac [facility] Work Phone: Start: 08-14-2023 End: 08-14-[address] Mayda Garcia Work Phone: [facility] Work Phone: Start: 08-14-2023 End: 08-14-[address] Mayda Garcia Work Phone: [facility]-Cat Scan, [facility] Work Phone: Start: 08-10-2023 End: 08-10-[address] Mayda Garcia Work Phone: [facility] Work Phone: Start: 08-10-2023 End: 08-10-[address] Mayda Garcia Work Phone: [facility]-Nuclear Medicine, [facility] Work Phone: Start: 08-10-[address] Susan Garcia Work Phone: [facility]-Cardiac Rehab Work Phone: Start: 07-31-2023 End: 08-02-[address] Mayda Garcia Work Phone: [facility] Work Phone: Start: 07-31-2023 End: 08-02-[address] Mayda Garcia Work Phone: [facility]-Cardiac Rehab Work Phone: Start: 07-30-2023 End: 07-30-[address] Mayda Garcia Work Phone: [facility] Gastroenterology Work Phone: Start: 07-27-2023 Registered Recurring Dr. Susan Garcia Work Phone: [facility]Cardiac Rehab Work Phone: Start: 07-23-2023 End: 07-23-[address] Mayda Garcia Work Phone: [facility] Internal Medicine Work Phone: Start: 07-21-2023 End: 07-21-[address] Mayda Garcia Work Phone: [facility] Work Phone: Start: 07-21-2023 End: 07-21-[address] Mayda Garcia Work Phone: [facility]Sleep Lab Work Phone: Start: 07-21-2023 End: 07-21-[address] Mayda Garcia Work Phone: [facility] Work Phone: Start: 07-21-2023 End: 07-21-[address] Mayda Garcia Work Phone: [facility]-Outpatient Bone Densitometry Work Phone: Start: 07-20-2023 End: 07-20-[address] Mayda Garcia Work Phone: [facility] Neurology Work Phone: Start: 07-01-2023 End: 07-02-[address] Mayda Garcia Work Phone: [facility] Work Phone: Start: 07-01-2023 End: 07-02-[address] Mayda Garcia Work Phone: [facility] Work Phone: Start: 07-01-[address] Susan Garcia Work Phone: [facility] Work Phone: Start: 06-25-2023 End: 06-25-[address] Mayda Garcia Work Phone: [facility] Work Phone: Start: 06-25-2023 End: 06-25-[address] Mayda Garcia Work Phone: [facility] Work Phone: Start: 06-22-[address] Susan Garcia Work Phone: [facility] Work Phone: Start: 06-17-2023 End: 06-17-[address] Mayda Garcia Work Phone: [facility] Work Phone: Start: 06-17-2023 End: 06-17-[address] Mayda Garcia Work Phone: [facility] Internal Medicine Work Phone: Start: 06-10-2023 End: 06-10-[address] Mayda Garcia Work Phone: [facility]-Pulmonary Medicine [facility] Work Phone: Start: 06-01-2023 End: 06-01-[address] Mayda Garcia Work Phone: [facility] Work Phone: Start: 06-01-2023 End: 06-01-[address] Mayda Garcia Work Phone: [facility] Work Phone: Start: 05-25-2023 End: 05-25-[address] Mayda Garcia Work Phone: [facility] Work Phone: Start: 05-25-2023 End: 05-25-[address] Mayda Garcia Work Phone: [facility]-Outpatient Breast Imaging Work Phone: Start: 05-20-2023 End: 05-20-[address] Mayda Garcia Work Phone: [facility] Work Phone: Start: 05-18-2023 End: 05-18-[address] Mayda Garcia Work Phone: [facility] Neurology Work Phone: Start: 04-16-2023 End: 04-16-[address] Mayda Garcia Work Phone: [facility] Neurology Work Phone: Start: 04-08-2023 Non-patient / Non-visit Dr. Jia Garcia Work Phone: [facility] Start: 03-30-2023 End: 03-30-[address] Mayda Garcia Work Phone: [facility] Work Phone: Start: 03-30-2023 End: 03-30-[address] Mayda Garcia Work Phone: [facility] Work Phone: Start: 03-30-2023 End: 03-30-2023 Dr. Mayda Garcia Work Phone: [facility] Work Phone: Start: 03-19-2023 End: 03-19-[address] Mayda Garcia Work Phone: [facility] Work Phone: Start: 03-19-2023 End: 03-19-2023 Dr. Mayda Garcia Work Phone: [facility] Work Phone: Start: 03-16-2023 End: 03-16-[address] Mayda Garcia Work Phone: [facility] Internal Medicine Work Phone: Start: 03-16-2023 End: 03-16-2023 Dr. Mayda Garcia Work Phone: [facility] Work Phone: Start: 02-18-2023 End: 02-18-[address] Mayda Garcia Work Phone: [facility] Work Phone: Start: 02-18-2023 End: 02-18-[address] Mayda Garcia Work Phone: [facility] Work Phone: Start: 02-18-2023 End: 02-18-2023 Dr. Mayda Garcia [facility] Work Phone: Start: 02-18-2023 End: 02-18-[address] Mayda Garcia Work Phone: [facility] Work Phone: Start: 02-18-2023 End: 02-18-2023 Dr. Mayda Garcia Work Phone: [facility] Work Phone: Start: 02-11-2023 End: 02-11-[address] Mayda Garcia Work Phone: [facility] Work Phone: Start: 02-11-2023 End: 02-11-2023 Dr. Mayda Garcia Work Phone: [facility] Work Phone: Start: 02-04-2023 End: 02-04-[address] Mayda Garcia [facility] [place] Start: 02-04-2023 End: 02-04-2023 Dr. Mayda Garcia Work Phone: [facility] [place] Start: 02-04-2023 End: 02-04-[address] Mayda Garcia Work Phone: [facility] Work Phone: Start: 02-04-2023 End: 02-04-2023 Dr. Mayda Garcia Work Phone: [facility] Work Phone: Start: 01-27-2023 End: 01-27-2023 Postop follow up visit related to original px Kassy Ken CNP Work Phone: [facility] Comment on above: S/P CABG (coronary a rtery bypass graft) (Primary Dx) Start: 01-11-2023 End: 01-26-2023 Evaluation and management of inpatient Dr. Mayda Garcia Work Phone: [facility] Start: 01-11-2023 End: 01-26-2023 Dr. Mayda Garcia Work Phone: [facility] Start: 01-01-2023 Evaluation and management of inpatient [facility] Start: 01-01-2023 End: 01-11-2023 Evaluation and management of inpatient Azam Rose MD Work Phone: [facility] Comment on above: S/P CABG (coronary a rtery bypass graft) (Primary Dx); CAD in [place] artery; Coronary artery disease involving coronary bypass graft, unspecified whether angina present, unspecified whether [place] or transplanted heart Start: 12-29-2022 End: 12-29-2022 Encounter for other preprocedural examination [facility] Start: 12-29-2022 End: 12-30-2022 ambulatory [facility] Start: 12-29-2022 End: 12-29-2022 Preoperative state Azam Rose MD Work Phone: [facility] Work Phone: Start: 12-29-2022 End: 12-29-2022 Subsequent hospital visit by physician Azam Rose MD Work Phone: [facility] Comment on above: Preoperative clearan ce Start: 12-24-2022 Admission to [facility] Kassy Ken CNP Work Phone: [facility] Comment on above: CAD in [place] artery (Primary Dx); Preoperative clearance Start: 12-24-2022 ambulatory Kassy Ken CNP Work Phone: [facility] Start: 12-24-2022 Preoperative state Kassy Dennis er FENCE SUPERVISOR - COMPUTER REPAIR ENGINEER Work Phone: [facility] Work Phone: Start: 12-23-2022 Telephone encounter Azam fenton MD Work Phone: [facility] Comment on above: Surgery Scheduling Start: 12-23-2022 End: 12-23-2022 ambulatory AZAM ROSE [facility] Start: 12-23-2022 End: 12-23-2022 Office outpatient new 60 minutes Azam Rose MD Work Phone: [facility] Comment on above: 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 Jia Garcia Work Phone: [facility] Work Phone: Start: 12-19-2022 Dr. Mayda Garcia Work Phone: [facility] Work Phone: Start: 12-19-2022 Non-patient / Non-visit Dr. Jia Garcia Work Phone: [facility] Start: 12-19-2022 Dr. Mayda Garcia Work Phone: [facility] Start: 12-18-2022 Non-patient / Non-visit Dr. Jia Garcia Work Phone: [facility] Work Phone: Start: 12-18-2022 Dr. Mayda Garcia Work Phone: [facility] Work Phone: Start: 12-18-2022 End: 12-19-2022 Evaluation and management of inpatient Dr. Mayda Garcia Work Phone: [facility] Work Phone: Start: 12-18-2022 End: 12-19-[address] Mayda Garcia Work Phone: [facility] Work Phone: Start: 12-18-2022 End: 12-19-2022 Dr. Mayda Garcia Work Phone: [facility] Work Phone: Start: 12-18-2022 Evaluation and management of inpatient Dr. Mayda Garcia Work Phone: [facility] Work Phone: Start: 12-16-2022 End: 12-16-[address] Mayda Garcia Work Phone: [facility] Work Phone: Start: 12-16-2022 End: 12-16-[address] Mayda Garcia Work Phone: [facility] Work Phone: Start: 12-16-2022 End: 12-16-2022 Dr. Mayda Garcia Work Phone: [facility] Work Phone: Start: 12-11-2022 End: 12-11-[address] Mayda Garcia Work Phone: [facility] Work Phone: Start: 12-11-2022 End: 12-11-2022 Dr. Mayda Garcia Work Phone: [facility] Work Phone: Start: 11-19-2022 End: 11-19-[address] Mayda Garcia Work Phone: [facility] Work Phone: Start: 11-19-2022 End: 11-19-2022 Dr. Mayda Garcia Work Phone: [facility] Work Phone: Start: 10-10-2022 End: 10-10-[address] Mayda Garcia Work Phone: [facility] Work Phone: Start: 10-03-2022 End: 10-03-[address] Mayda Garcia Work Phone: [facility] Work Phone: Start: 10-03-2022 End: 10-03-[address] Mayda Garcia Work Phone: [facility] Start: 10-03-2022 End: 10-03-[address] Mayda Garcia Work Phone: [facility] Start: 10-02-2022 End: 10-02-[address] Mayda Garcia Work Phone: [facility] Neurology Start: 10-01-2022 End: 10-01-[address] Mayda Garcia Work Phone: [facility] Work Phone: Start: 10-01-2022 End: 10-01-[address] Mayda Garcia Work Phone: [facility] [place] Start: 08-22-2022 End: 08-22-[address] Mayda Garcia Work Phone: [facility] Start: 08-13-2022 End: 08-14-2022 Emergency department patient visit Dr. Mayda Garcia [facility] Start: 07-16-2022 End: 07-16-[address] Mayda Garcia Work Phone: [facility] Start: 06-30-2022 End: 06-30-[address] Mayda Garcia Work Phone: [facility] Start: 06-09-2022 End: 06-09-[address] Mayda Garcia Work Phone: [facility] Start: 06-07-2022 End: 06-07-2022 Emergency department patient visit Dr. Mayda Garcia [facility] Start: 06-06-2022 End: 06-06-2022 Emergency department patient visit Dr. Mayda Garcia [facility] Start: 05-06-2022 End: 05-06-[address] Mayda Garcia Work Phone: [facility] Work Phone: Start: 05-06-2022 End: 05-06-[address] Mayda Garcia Work Phone: [facility] Start: 04-02-2022 End: 04-02-[address] Mayda Garcia Work Phone: [facility] Start: 03-29-2022 End: 03-29-2022 Emergency department patient visit Dr. Mayda Garcia [facility] Start: 03-14-2022 End: 03-14-2022 Emergency department patient visit Dr. Mayda Garcia Work Phone: [facility]Emergency Department Start: 03-10-2022 End: 03-10-[address] Mayda Garcia Work Phone: [facility]-Pulmonary Medicine [facility] Start: 02-21-2022 End: 02-21-[address] Mayda Garcia Work Phone: [facility] Work Phone: Start: 02-21-2022 End: 02-21-[address] Mayda Garcia Work Phone: [facility]-Physical Therapy Start: 01-14-2022 End: 01-14-[address] Mayda Garcia Work Phone: [facility] Start: 01-10-2022 End: 01-10-[address] Mayda Garcia Work Phone: [facility] Work Phone: Start: 01-10-2022 End: 01-10-[address] Mayda Garcia Work Phone: [facility] Start: 01-03-2022 Non-patient / Non-visit Dr. Jia Garcia Work Phone: [facility] Inpatient Physicians Start: 01-03-2022 Non-patient / Non-visit Dr. Jia Garcia Work Phone: [facility] Start: 01-02-2022 Non-patient / Non-visit Dr. Jia Garcia Work Phone: [facility] Inpatient Physicians Start: 01-02-2022 End: 01-03-2022 Evaluation and management of inpatient Dr. Mayda Garcia Work Phone: [facility]-Progressive Care Unit Start: 01-02-2022 End: 01-03-[address] Mayda Garcia Work Phone: [facility] Work Phone: Start: 01-02-2022 Non-patient / Non-visit Dr. Jia Garcia Work Phone: [facility] Start: 12-23-2021 End: 12-23-[address] Mayda Garcia Work Phone: [facility] Start: 12-17-2021 End: 12-17-2021 Emergency department patient visit Dr. Mayda Garcia Work Phone: [facility]-Emergency Department Start: 12-12-2021 End: 12-12-[address] Mayda Lozano Phone: [facility]-Outpatient Breast Imaging Start: 11-29-2021 Non-patient / Non-visit Dr. Jia Garcia Work Phone: [facility] Start: 11-29-2021 End: 11-29-[address] Mayda Lozano Phone: [facility]-Cardiovascular Services Start: 11-28-2021 End: 11-28-2021 Emergency department patient visit Dr. Mayda Garcia Work Phone: [facility]-Emergency Department Start: 11-06-[address] Mayda Garcia Work Phone: [facility] Start: 11-06-2021 End: 11-06-2021 Encounter for general adult medical examination without abnormal findings Dr. Mayda Garcia Work Phone: [facility] Start: 11-06-2021 End: 11-06-[address] Mayda Garcia Work Phone: [facility] Start: 11-05-2021 End: 11-05-[address] Mayda Lozano Phone: [facility]-Pulmonary Medicine [facility] Start: 10-25-2021 End: 10-25-2021 Emergency department patient visit Dr. Mayda Lozano Phone: [facility]-Emergency Department Start: 10-17-2021 End: 10-17-[address] Mayda Garcia Work Phone: [facility] Neurology Start: 07-18-2021 End: 07-18-[address] Mayda Lozano Phone: [facility]-Physical Therapy Start: 07-16-2021 End: 07-16-[address] Mayda Lozano Phone: [facility] Start: 07-10-2021 End: 07-10-[address] Mayda Lozano Phone: [facility] Start: 10-02-[address] Mayda Lozano Phone: [facility] Start: 02-25-2018 End: 03-01-2018 Patient encounter procedure TILA (PT) J[facility]ELLE [facility] Start: 02-22-2018 End: 02-22-2018 Patient encounter procedure JOSSUE FINLEY [facility] Start: 02-18-2018 End: 02-22-2018 Patient encounter procedure TILA (PT) JENELLE [facility] Start: 02-11-2018 End: 02-12-2018 Patient encounter procedure TILA (PT) JENELLE [facility] Start: 02-09-2018 [facility] CH[facility]IS Y[facility] Start: 02-04-2018 End: 02-04-2018 Patient encounter procedure TILA (PT) JENELLE [facility] Start: 02-02-2018 End: 02-03-2018 Patient encounter procedure ITLA (PT) [facility] Start: 01-28-2018 End: 02-01-2018 Patient encounter procedure TILA (PT) [facility] Start: 01-26-2018 End: 01-27-2018 Patient encounter procedure TILA (PT) [facility] Start: 01-21-2018 End: 01-25-2018 Patient encounter procedure TILA (PT) [facility] Start: 01-14-2018 Patient encounter procedure TILA (PT) [facility] Start: 01-12-2018 End: 01-13-2018 Patient encounter procedure TILA (PT) [facility] Start: 01-11-2018 End: 01-11-2018 Patient encounter procedure MYNOR FLORES [facility] Start: 01-07-2018 End: 01-08-2018 Patient encounter procedure TILA (PT) [facility] Start: 01-05-2018 End: 01-06-2018 Patient encounter procedure TILA (PT) [facility] Start: 12-17-2017 End: 12-17-2017 Patient encounter procedure MYNOR FLORES [facility] Start: 12-09-2017 End: 12-09-2017 Patient encounter procedure MYNOR FLORES [facility] Start: 10-15-2017 End: 10-16-2017 Patient encounter procedure JOSSUE FINLEY [facility] Start: 10-14-2017 End: 10-14-2017 Patient encounter procedure JOSSUE FINLEY [facility] Start: 07-20-2017 End: 07-20-2017 Patient encounter procedure 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 Mayda alanis MD Work [...] 01-09-2023 Glucose quantitative blood xcpt reagent strip Azma Rose MD Work Phone: Start: 01-08-2023 Glucose quantitative blood xcpt reagent strip Azam Rose MD Work Phone: Start: 01-08-2023 Glucose quantitative blood xcpt reagent strip Azam Rose MD Work Phone: Start: 01-08-2023 Radiologic exam chest single view Shruthi Neumann Carmella FENCE SUPERVISOR - COMPUTER REPAIR ENGINEER Work Phone: Start: 01-07-2023 Glucose quantitative blood xcpt reagent strip Azam Rose MD Work Phone: Start: 01-07-2023 Glucose quantitative blood xcpt reagent strip Azam Rose MD Work Phone: Start: 01-07-2023 Glucose quantitative blood xcpt reagent strip Azam Rose MD Work Phone: Start: 01-07-2023 Radiologic exam chest single view Shruthi Neumann Carmella FENCE SUPERVISOR - COMPUTER REPAIR ENGINEER Work Phone: Start: 01-07-2023 Basic metabolic panel calcium total Shruthi Neumann Carmella FENCE SUPERVISOR - COMPUTER REPAIR ENGINEER Work Phone: Start: 01-06-2023 Glucose quantitative blood xcpt reagent strip Azam Rose MD Work Phone: Start: 01-06-2023 Glucose quantitative blood xcpt reagent strip Azam Rose MD Work Phone: Start: 01-06-2023 Glucose quantitative blood xcpt reagent strip Azam Rose MD Work Phone: Start: 01-06-2023 Radiologic exam chest single view Shruthi Neumann Carmella FENCE SUPERVISOR - COMPUTER REPAIR ENGINEER Work Phone: Start: 01-06-2023 Basic metabolic panel calcium total Shruthi Plunkettke FENCE SUPERVISOR - COMPUTER REPAIR ENGINEER Work Phone: Start: 01-05-2023 Glucose quantitative blood xcpt reagent strip Azam Rose MD Work Phone: Start: 01-05-2023 Glucose quantitative blood xcpt reagent strip Azam Rose MD Work Phone: Start: 01-05-2023 Radiologic exam chest single view Shruthi Weaver FENCE SUPERVISOR - COMPUTER REPAIR ENGINEER Work Phone: Start: 01-05-2023 Compatibility each unit electronic Remington Hopkins MD Work Phone: Start: 01-05-2023 Basic metabolic panel calcium total Shruthi Weaver FENCE SUPERVISOR - COMPUTER REPAIR ENGINEER Work Phone: Start: 01-04-2023 Glucose quantitative blood xcpt reagent strip Azam Rose MD Work Phone: Start: 01-04-2023 Glucose quantitative blood xcpt reagent strip Azam Rose MD Work Phone: Start: 01-04-2023 Radiologic exam chest single view Shruthi Weaver FENCE SUPERVISOR - COMPUTER REPAIR ENGINEER Work Phone: Start: 01-04-2023 End: 01-04-2023 Basic metabolic panel calcium total Shruthi Weaver FENCE SUPERVISOR - COMPUTER REPAIR ENGINEER Work Phone: Start: 01-03-2023 Glucose quantitative blood xcpt reagent strip Azam Rose MD Work Phone: Start: 01-03-2023 Glucose quantitative blood xcpt reagent strip Azam Rose MD Work Phone: Start: 01-03-2023 Glucose quantitative blood xcpt reagent strip Azam Rose MD Work Phone: Start: 01-03-2023 Radiologic exam chest single view Shruthi Plunkettmamisumit FENCE SUPERVISOR - COMPUTER REPAIR ENGINEER Work Phone: Start: 01-03-2023 Basic metabolic panel calcium total Shruthi Weaver FENCE SUPERVISOR - COMPUTER REPAIR ENGINEER Work Phone: Start: 01-02-2023 Glucose quantitative blood xcpt reagent strip Azam Rose MD Work Phone: Start: 01-02-2023 Glucose quantitative blood xcpt reagent strip Azam Rose MD Work Phone: Start: 01-02-2023 End: 01-02-2023 Basic metabolic panel calcium total Chandler Ram FENCE SUPERVISOR - COMPUTER REPAIR ENGINEER Work Phone: Start: 01-02-2023 Glucose quantitative blood xcpt reagent strip Azam Rose MD Work Phone: Start: 01-02-2023 Glucose quantitative blood xcpt reagent strip Azam Rose MD Work Phone: Start: 01-02-2023 Radiologic exam chest single view Shruthi Nel Weaver FENCE SUPERVISOR - COMPUTER REPAIR ENGINEER Work Phone: Start: 01-02-2023 Ecg routine ecg w/least 12 lds trcg only w/o i&r Shruthi Neumann Carmella FENCE SUPERVISOR - COMPUTER REPAIR ENGINEER Work Phone: Start: 01-02-2023 End: 01-02-2023 Glucose quantitative blood xcpt reagent strip Azam Rose MD Work Phone: Start: 01-02-2023 End: 01-02-2023 Glucose quantitative blood xcpt reagent strip Azam Rose MD Work Phone: Start: 01-02-2023 Glucose quantitative blood xcpt reagent strip Azam Rose MD Work Phone: Start: 01-02-2023 End: 01-02-2023 Basic metabolic panel calcium total Shruthi Nel Weaver FENCE SUPERVISOR - COMPUTER REPAIR ENGINEER Work Phone: Start: 01-01-2023 Glucose quantitative blood [...] hematocrit Mynor R Dionna A PRN - COMPUTER REPAIR ENGINEER Work Phone: Start: 01-01-2023 Compatibility each unit electronic Mynor R Dionna FENCE SUPERVISOR - COMPUTER REPAIR ENGINEER Work Phone: Start: 01-01-2023 End: 01-01-2023 TRANSFUSE RED BLOOD CELLS Mynor galindo [facility] Work Phone: Start: 01-01-2023 Radiologic exam chest single view Mynor Villareal FENCE SUPERVISOR - [facility] Work Phone: Start: 01-01-2023 End: 01-01-2023 Blood count complete automated Mynor Villareal [facility] Work Phone: Start: 01-01-2023 Echo transesophag r-t 2d w/prb img acquisj i&r Azam Rose MD Work Phone: Start: 01-01-2023 Ecg routine ecg w/least 12 lds trcg only w/o i&r Shruthi Weaver [facility] Work Phone: Start: 01-01-2023 End: 01-01-2023 Glucose [...] (coronary artery bypass graft) Kassy Tabares APRN [facility] Work Phone: History of coronary artery [...] Detail Author Start: 05-22-2025 Cytoplasmic ANCA Screen [facility] Start: 09-21-2024 Patient referral [facility] Work Phone: Start: 09-16-2024 [facility] Start: 07-15-2024 [facility] Start: 07-14-2024 [facility] Start: 07-14-2024 [facility] Start: 05-20-2024 Patient referral [facility] Work Phone: Start: 01-08-2024 Creatinine measurement Creatinine Level [facility] Start: 01-08-2024 Potassium measurement Potassium Level [facility] Start: 01-02-2024 Echocardiography Echocardiogram [facility] Start: 12-30-2023 Hemoglobin A1c measurement Diabetes: Hemoglobin A1C [facility] Start: 07-23-2023 Patient referral [facility] Work Phone: Start: 06-17-2023 Patient referral [facility] Work Phone: Start: 06-01-2023 Patient referral to dietitian [facility] Start: 05-20-2023 Patient referral [facility] Work Phone: Start: 03-19-2023 Patient referral [facility] Work Phone: Start: 02-23-2023 Blood chemistry [facility] Start: 02-16-2023 Blood chemistry [facility] Start: 02-09-2023 Blood chemistry [facility] Start: 02-02-2023 Blood chemistry [facility] Start: 01-28-2023 Development of care plan [facility] Start: 01-26-2023 Patient discharge [facility] Start: 01-22-2023 Referral to service [facility] Start: 01-22-2023 Continuous positive airway pressure ventilation treatment [facility] Start: 01-21-2023 Following clinical pathway protocol [facility] Start: 01-21-2023 [facility] Start: 01-19-2023 End: 01-19-2023 Patient encounter procedure 01/19/2023 11:30 AM EDT Office Visit [facility] [address] [place] [id number] Kassy Tabares, GORDO - COMPUTER REPAIR ENGINEER [address] [place] [address] [facility] Start: 01-14-2023 End: 01-14-2023 Speech therapy management [facility] Start: 01-13-2023 Speech therapy assessment [facility] Start: 01-12-2023 [facility] Start: 01-12-2023 Development of care plan [facility] Start: 01-12-2023 Developing a treatment plan [facility] Start: 01-11-2023 Seizure precautions [facility] Start: 01-11-2023 Provision of activity privileges [facility] Start: 01-11-2023 Recommendation to continue with treatment [facility] Start: 01-11-2023 Wound care [facility] Start: 01-11-2023 Admission procedure [facility] Start: 01-11-2023 Measuring intake and output [facility] Start: 01-11-2023 Patient referral to dietitian [facility] Start: 01-11-2023 Referral to occupational therapist [facility] Start: 01-11-2023 Referral to service [facility] Start: 01-11-2023 Vital signs measurements [facility] Start: 01-11-2023 End: 01-11-2023 [facility] Start: 01-02-2023 Influenza vaccination Influenza Vaccine (#1) [facility] Start: 01-01-2023 End: 01-01-2023 Admission to same day surgery center 01/01/2023 7:30 AM EDT - 01/01/2023 12:30 PM EDT Surgery [facility] MA[facility] OR [address] [place] [id number] Azam Rose MD [address] [facility], [address] [place] [address] CABG AND SIS [31073 (CPT )] [facility] Comment on above: CABG AND SIS [74777 (CPT )] Start: 01-01-2023 End: 01-01-2023 Anesthesia consultation 01/01/2023 7:30 AM EDT Anesthesia Event [facility] [address] [place] [id number] Adilia Carson, RENE [address] [place] [address] [facility] Start: 01-01-2023 End: 01-01-2023 Cabg w/arterial graft three arterial grafts CABG X3 ARTERIAL GRAFTS Atherosclerotic heart disease of [place] coronary artery without angina pectoris 01/01/2023 7:30 AM EDT [facility] Operating Room Start: 01-01-2023 End: 01-01-2023 Echo transesophag r-t 2d w/prb img acquisj i&r Echocardiography transesophageal real-time Atherosclerotic heart disease of [place] coronary artery without angina pectoris 01/01/2023 7:30 AM EDT [facility] Operating Room Start: 01-01-2023 Subsequent hospital visit by physician 01/01/2023 7:30 AM EDT Hospital Encounter [facility] [address] [facility] [place] [address] Azam Rose MD [address] [place] [address], [address] [place] [address] [facility] MAIN OR Start: 12-26-2022 End: 12-26-2022 Admission to establishment 12/26/2022 1:00 PM EDT Pre-Admission Testing [facility] Pre-Admit Testing [address] [facility] [place] [address] [facility] Pre-Admit Testing Start: 12-24-2022 End: 02-23-2023 Basic metabolic 1998 panel - Serum or Plasma Basic metabolic panel Lab Routine Preoperative clearance Expected: 12/24/2022, Expires: 02/23/2023 [facility] Work Phone: Comment on above: Expected: 12/24/2022, Expires: Start: 12-24-2022 End: 02-23-2023 Blood type and Crossmatch panel - Blood Type and Screen Lab Routine Preoperative clearance Expected: 12/24/2022, Expires: 02/23/2023 [facility] [employer] Comment on above: Expected: 12/24/2022, Expires: Start: 12-24-2022 End: 02-23-2023 CBC panel - Blood by Automated count CBC Lab Routine Preoperative clearance Expected: 12/24/2022, Expires: 02/23/2023 [employer] Comment on above: Expected: 12/24/2022, Expires: 3 Start: 12-24-2022 End: 02-23-2023 ECG 12 lead ECG 12 lead CV ECG Routine Preoperative clearance Expected: 12/24/2022, Expires: 02/23/2023 [employer] Comment on above: Expected: 12/24/2022, Expires: 3 Start: 12-24-2022 End: 02-23-2023 Hemoglobin A1c/Hemoglobin.total in Blood Hemoglobin A1c Lab Routine Preoperative clearance Expected: 12/24/2022, Expires: 02/23/2023 [employer] Comment on above: Expected: 12/24/2022, Expires: Start: 12-24-2022 End: 02-23-2023 Prepare RBC: 2 Units Prepare RBC: 2 Units Blood Bank Routine Preoperative clearance Expected: 12/24/2022, Expires: 02/23/2023 [employer] Comment on above: Expected: 12/24/2022, Expires: 3 Start: 12-24-2022 End: 02-23-2023 XR Chest 2 Views XR chest 2 views Imaging Routine Preoperative clearance Expected: 12/24/2022, Expires: 02/23/2023 [employer] Comment on above: Expected: 12/24/2022, Expires: 3 Start: 12-19-2022 Patient discharge [facility] Start: 12-19-2022 Patient referral [facility] Work Phone: Start: 12-18-2022 Referral to service delivery consultant [facility] Start: 12-18-2022 Ambulation without limitation [facility] Start: 12-18-2022 Assessment of risk of venous thromboembolism [facility] Start: 12-18-2022 Insertion of catheter into peripheral vein [facility] Start: 12-18-2022 Oxygen therapy [facility] Start: 12-18-2022 Providing care according to standard [facility] Start: 12-18-2022 Admission procedure [facility] Start: 12-18-2022 Following clinical pathway protocol [facility] Start: 12-18-2022 End: 12-18-2022 [facility] Start: 12-12-2022 Screening for malignant neoplasm of breast Mammogram [facility] Start: 06-07-2022 Incentive spirometry [facility] Start: 06-07-2022 [facility] Start: 06-06-2022 Seizure precautions [facility] Start: 03-14-2022 Seizure precautions [facility] Start: 01-10-2022 Patient referral [facility] Work Phone: Start: 01-03-2022 Patient discharge [facility] Work Phone: Start: 01-02-2022 Care regimes management [facility] Work Phone: Start: 01-02-2022 Notification of physician [facility] Work Phone: Start: 01-02-2022 [facility] Work Phone: Start: 01-02-2022 Following clinical pathway protocol [facility] Work Phone: Start: 01-02-2022 Assessment of risk of venous thromboembolism [facility] Work Phone: Start: 01-02-2022 Catheterization of vein [facility] Work Phone: Start: 01-02-2022 Insertion of catheter into peripheral vein [facility] Work Phone: Start: 01-02-2022 Measuring intake and output [facility] Work Phone: Start: 01-02-2022 Providing care according to standard [facility] Work Phone: Start: 01-02-2022 Provision of activity privileges [facility] Work Phone: Start: 01-02-2022 [facility] Work Phone: Start: 01-02-2022 Admission procedure [facility] Work Phone: Start: 11-28-2021 US.doppler Lower extremity vein [facility] Work Phone: Start: 10-25-2021 [facility] Work Phone: Start: 07-19-2021 COVID-19 Vaccine (4 - Booster for Moderna series) COVID-19 Vaccine (4 - Booster for Moderna series) [facility] Start: 07-19-2021 COVID-19 Vaccine (4 - Moderna series) COVID-19 Vaccine (4 - Moderna series) [facility] Start: 01-17-2021 DTaP/Tdap/Td Vaccines (2 - Td or Tdap) DTaP/Tdap/Td Vaccines (2 - Td or Tdap) [facility] Start: 07-18-2011 Hepatitis B Vaccines (3 of 3 - 19+ 3-dose series) Hepatitis B Vaccines (3 of 3 - 19+ 3-dose series) [facility] Start: 07-18-2011 Hepatitis B Vaccines (3 of 3 - Risk 3-dose series) Hepatitis B Vaccines (3 of 3 - Risk 3-dose series) [facility] Start: 05-04-2007 Pneumococcal Vaccine: 65+ Years (2 - PCV) Pneumococcal Vaccine: 65+ Years (2 - PCV) [facility] Start: 2002 Zoster Vaccines (1 of 2) Zoster Vaccines (1 of 2) [facility] Start: 1970 Hepatitis C screening Hepatitis C Screening [facility] Start: 1964 Depression Screening Depression Screening [facility] Start: 1962 Diabetic foot examination Diabetes: Foot Exam [facility] Start: 1962 Glaucoma screening Diabetes: Retinopathy Screening [facility] Start: 1962 Preventive dental service Diabetes: Dental Exam [facility] Start: 1952 Hemoglobin A1c measurement Diabetes: Hemoglobin A1C [facility] Start: 1952 Lipid panel Lipid Panel [facility] Start: 1952 Medicare Advantage Annual Wellness Visit (AWV) Medicare Advantage Annual Wellness Visit (AWV) [facility] Start: 1952 Screening for malignant neoplasm of colon [facility] Start: 1952 Screening for osteoporosis Bone Density Scan [facility] Antibody to lupus La protein measurement [facility] Antibody to SS-A measurement [facility] Basic metabolic 2008 panel with ionized calcium - Serum or Plasma [facility] Blood ammonia measurement [facility] Work Phone: Blood ammonia measurement [facility] Blood ammonia measurement [facility] Blood chemistry [facility] C reactive protein [Mass/volume] in Serum or Plasma [facility] CBC W Auto Different ial panel - Blood [facility] Complete blood count [facility] Work Phone: Complete blood count [facility] Comprehensive metabo lic 2000 panel - Serum or Plasma [facility] CT Abdomen and Pelvi s W contrast IV [facility] Cytoplasmic ANCA Screen [facility] DNA double strand Ab [Units/volume] in Serum [facility] DXA Bone [Mass/Area] Bone density [facility] Erythrocyte sedimentation rate [facility] Folate [Mass/volume] in Serum or Plasma [facility] Hemoglobin A1c/Hemoglobin.total in Blood [facility] Hemoglobin A1c/Hemoglobin.total in Blood [facility] Hepatic function panel [facility] Lipid 1996 panel - S ronnell or Plasma [facility] MG Breast - bilatera l Screening [facility] Work Phone: Patient Education [facility] Work Phone: Patient referral [facility] Work Phone: Radionuclide gastric emptying study [facility] Rheumatoid factor [Presence] in Serum [facility] Streptococcus pyogen es antigen assay Group A Streptococcus Rapid Screen [facility] Work Phone: Thiamine measurement [facility] Thyroid stimulating hormone measurement [facility] Troponin T.cardiac [Mass/volume] in Serum or Plasma by High sensitivity method [facility] Valproate [Mass/volu me] in Serum or Plasma [facility] Viral nucleic acid assay [facility] Vitamin B12 measurement [facility] End: 12-29-2022 XR Chest 2 Views [employer] Work Phone: Comment on above: Once for 1 Occurrences starting 12/30/19 23 until 12/29/2022 XR Shoulder GE 2 Views [facility] Work Phone: [facility] Immunizations Immunization Date Immunization Notes Care Provider Farzana martinez 02-09-2024 RSV Adult BiValent (Abrysvo) Dr. Mayda Garcia MD Work Phone: [facility] 02-04-2023 influenza, injectabl e, quadrivalent, preservative free Dr. Mayda Garcia Work Phone: [facility] 01-14-2023 Pneumococcal Vaccine PCV20 (Prevnar 20) Dr. Mayda Garcia Work Phone: [facility] 03-10-2022 influenza, injectabl e, quadrivalent, preservative free Dr. Mayda Garcia Work Phone: [facility] 03-10-2022 influenza, seasonal, injectable Dr. Mayda Garcia Work Phone: [facility] 03-10-2022 influenza virus vaccine, unspecified formulation Azam Rose MD Work Phone: [facility] 05-24-2021 Covid (Moderna) Dr. Yaron Garcia Work Phone: [facility] 08-09-2020 Covid (Moderna) Dr. Yaron Garcia Work Phone: [facility] 07-11-2020 Covid (Moderna) Dr. Yaron Garcia Work Phone: [facility] 02-10-2020 influenza, injectabl e, quadrivalent, preservative free Dr. Mayda Garcia Work Phone: [facility] 02-10-2020 influenza, seasonal, injectable Dr. Mayda Garcia Work Phone: [facility] 02-10-2020 Seasonal, quadrivale nt, recombinant, injectable influenza vaccine, preservative free Dr. Mayda Garcia Work Phone: [facility] 02-10-[address] Mayda Garcia Work Phone: [facility] 03-21-2018 influenza, injectabl e, quadrivalent, preservative free Dr. Mayda Garcia Work Phone: [facility] 03-21-2018 influenza, seasonal, injectable Dr. Mayda Garcia Work Phone: [facility] 03-21-2018 Seasonal, quadrivale nt, recombinant, injectable influenza vaccine, preservative free Dr. Mayda Garcia Work Phone: [facility] 03-03-2016 influenza, injectabl e, quadrivalent, preservative free Dr. Mayda Garcia Work Phone: [facility] 04-11-2015 influenza, injectabl e, quadrivalent, preservative free Dr. Mayda Garcia Work Phone: [facility] Payers Date Payer Category Payer Self-pay [id number] 2021 Medicare [facility]M MEDICARE [facility]ANTAGE [facility] [id number] 2021-Present [address] [place] [address] Medicare HMO [id number] 2021 Unknown [id number] 2011 Medicare [id number] Medicare [id number] Medicare [id number] Unknown [id number] Unknown [id number] 2.16.840.1.140587.3.579.2.462 Unknown [id number] 2.16.840.1.479899.3.579.2.462 Unknown [id number] 2.16840.1.491642.3.579.2.462 Unknown [id number] 2.16840.1.573749.3.579.2.462 Unknown [id number] 2.840.1.299452.3.579.2.462 Unknown [id number] 2.16840.1.996248.3.579.2.462 Unknown [id number] 2.840.1.991703.3.579.2.462 Unknown [id number] 2.840.1.784466.3.579.2.462 Unknown [id number] 2.840.1.164410.3.579.2.462 Unknown [id number] 2.840.1.721366.3.579.2.462 Unknown [id number] 2.840.1.520719.3.579.2.462 Unknown [id number] 2.840.1.680283.3.579.2.462 Unknown [id number] 2.840.1.256278.3.579.2.462 Unknown [id number] 2.840.1.033051.3.579.2.462 Unknown [id number] 2.840.1.256733.3.579.2.462 Unknown [id number] 2.840.1.261507.3.579.2.462 Unknown [id number] 2.840.1.699221.3.579.2.462 Unknown [id number] 2.840.1.319015.3.579.2.462 Unknown [id number] 2.840.1.851952.3.579.2.462 Unknown [id number] 2.16840.1.012414.3.579.2.462 Unknown [id number] 2.840.1.107008.3.579.2.462 Unknown [id number] 2.16.840.1.257064.3.579.2.462 Unknown [id number] 2.16.840.1.456497.3.579.2.462 Unknown [id number] 2.840.1.039860.3.579.2.462 Unknown [id number] 2.840.1.314839.3.579.2.462 Unknown [id number] 2.840.1.066336.3.579.2.462 Unknown [id number] 2.840.1.672811.3.579.2.462 Unknown [id number] 2.840.1.684668.3.579.2.462 Unknown [id number] 2.840.1.140074.3.579.2.462 Unknown [id number] 2.840.1.729237.3.579.2.462 Unknown [id number] 2.840.1.438458.3.579.2.462 Unknown [id number] 2.840.1.065769.3.579.2.462 Unknown [id number] 2.840.1.673334.3.579.2.462 Unknown [id number] 2.840.1.886429.3.579.2.462 Unknown [id number] 2.840.1.262991.3.579.2.462 Unknown [id number] 2.840.1.472685.3.579.2.462 Unknown [id number] 2.840.1.742674.3.579.2.462 Unknown [id number] 2.840.1.391753.3.579.2.462 Unknown [id number] 2.16.840.1.457956.3.579.2.462 Unknown [id number] 2.16.840.1.270666.3.579.2.462 Unknown [id number] 2.16.840.1.253257.3.579.2.462 Unknown [id number] 2.16840.1.193096.3.579.2.462 Unknown [id number] 2.16.840.1.946352.3.579.2.462 Unknown [id number] 2.16.840.1.601481.3.579.2.462 Unknown [id number] 2.16.840.1.192693.3.579.2.462 Unknown [id number] 2.16840.1.258456.3.579.2.462 Unknown [id number] 2.840.1.969235.3.579.2.462 Social History Date Type Detail Facility Start: 10-25-2021 End: 08-19-2023 Tobacco smoking status TXIS Unknown if ever smoked [facility] Start: 09-26-2020 Rare [facility] Start: 09-26-2020 None [facility] Start: 09-26-2020 Alone [facility] Start: 09-26-2020 Non-smoker [facility] Start: 1950 Sex Assigned At Female [facility] Start: 12-22-2022 End: 09-16-2024 Tobacco smoking status NHIS Never smoked tobacco [facility] Start: 12-22-2022 Tobacco use and exposure Smokeless tobacco non-user [facility] Start: 12-23-2022 Alcohol intake Lifetime non-d domenica (finding) [facility] Start: 12-22-2022 End: 01-19-2023 History of Social function [facility] Start: 12-22-2022 End: 01-19-2023 Tobacco use panel [facility] Start: 1950 Sex Assigned At Not on file [facility] Start: 12-13-2022 End: 01-19-2023 Exposure to SARS-CoV-2 (event) Not sure [facility] Start: 12-29-2022 End: 01-19-2023 Alcohol intake Current drinker of alcohol (finding) [facility] Start: 12-29-2022 Alcohol Comment once a year [facility] Within the last year , have you been afraid of your partner or ex-partner? No [facility] Start: 07-14-2024 End: 07-15-2024 Sex Female (finding) [facility] Medical Equipment Procedure Code Equipment Code Equipment [...] Test Strip) strip Start: 02-07-2020 End: 07-17-2021 [facility] n lancets Start: 11-11-2019 End: 11-11-2019 Blood Sugar Diagnostic (True Metrix Glucose Test Strip) strip Start: 07-17-2021 Blood Sugar Diagnostic (True Metrix Glucose Test Strip) strip Start: 02-07-2020 End: 02-07-2020 Blood Sugar Diagnostic (True Metrix Glucose Test Strip) strip Start: 02-07-2020 End: 07-17-2021 [facility] n lancets Start: 11-11-2019 End: 11-11-2019 Blood Sugar Diagnostic (True Metrix Glucose Test Strip) strip Start: 07-17-2021 Blood Sugar Diagnostic (True Metrix Glucose Test Strip) strip Start: 02-07-2020 End: 02-07-2020 Blood Sugar Diagnostic (True Metrix Glucose Test Strip) strip Start: 02-07-2020 End: 07-17-2021 [facility] n lancets Start: 11-11-2019 End: 11-11-2019 Blood Sugar Diagnostic (True Metrix Glucose Test Strip) strip Start: 07-17-2021 Blood Sugar Diagnostic (True Metrix Glucose Test Strip) strip Start: 02-07-2020 End: 02-07-2020 Blood Sugar Diagnostic (True Metrix Glucose Test Strip) strip Start: 02-07-2020 End: 07-17-2021 [facility] n lancets Start: 11-11-2019 End: 11-11-2019 Blood Sugar Diagnostic (True Metrix Glucose Test Strip) strip Start: 07-17-2021 Blood Sugar Diagnostic (True Metrix Glucose Test Strip) strip Start: 02-07-2020 End: 02-07-2020 Blood Sugar Diagnostic (True Metrix Glucose Test Strip) strip Start: 02-07-2020 End: 07-17-2021 [facility] lancets Start: 11-11-2019 End: 11-11-2019 Blood Sugar Diagnostic (True Metrix Glucose Test Strip) strip Start: 07-17-2021 Blood Sugar Diagnostic (True Metrix Glucose Test Strip) strip Start: 02-07-2020 End: 02-07-2020 Blood Sugar Diagnostic (True Metrix Glucose Test Strip) strip Start: 02-07-2020 End: 07-17-2021 [facility] thi n lancets Start: 11-11-2019 End: 11-11-2019 Blood Sugar Diagnostic (True Metrix Glucose Test Strip) strip Start: 07-17-2021 Lancets (Bd Ultr a Fine Lancets) 33 gauge misc Start: 04-02-2022 Blood Sugar Diagnostic (True Metrix Glucose Test Strip) strip Start: 02-07-2020 End: 02-07-2020 Blood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 obtained. Will reach out to lamination builder TCC/Social work. Pain has been ready from [...] EF: normal 01/01/23 Blood Conservation: Transfused postoperatively Plumbing And Heating Contractor: [employer] * GORDO Felix CNP - 01/10/2023 6:03 AM EDT Images from the original note were not included. Cardiothoracic Surgery/[facility] Progress Note PATIENT NAME: Lacy Alvarado DATE: 01/10/23 HPI: 72 y.o. female was referred by Dr. Bhanu Milian. Patient was admitted on 12/18/22 to [facility] with CP history of CHF, CAD, DM [...] here and onto the next place (pending [facility]) Review of Systems Constitutional: [...] DVT prophy:TEDs, SCDs, and Heparin SubQ Disposition: [facility] pending precert. Likely thu or thursday Central Line: []Yes [x] No Arterial Line: []Yes [x] No Araya: []Yes [x] No Restraints: []Yes [x] No Patient discussed and plan of day developed from multidisciplinary rounds between Cardiothoracic Surgery (Cardiothoracic Surgeon, SONYA) and Critical Care Attending Cardiac Core Medications: ASA, Plavix, Statin, and BB EF: normal 01/01/23 Blood Conservation: Transfused postoperatively Plumbing And Heating Contractor: [employer] * Samaria Li, TASSEL SNIPPER - 01/09/2023 1:09 PM EDT Physical Therapy Facility/Department: [facility] Physical Therapy Daily Treatment Note NAME: Lacy Alvarado : 1950 Date of Service: 01/09/2023 Discharge Recommendations: IP Rehab, [facility] PT Equipment Recommendations Equipment Needed: No [...] and strength to complete stairs safely with [place] to avoid a fall. Performance Deficits/Impairments: Decreased functional mobility , Decreased endurance, Increased pain, Decreased ADL status, Decreased strength, Decreased posture, Decreased balance Patient Diagnosis(es): The primary encounter diagnosis was CAD in [place] artery. A diagnosis of Coronary artery disease involving coronary bypass graft, unspecified whether angina present, unspecified whether [place] or transplanted heart was also pertinent to this visit. has a past medical history of CHF (congestive heart failure) ([facility]) ([facility]), Diabetes mellitus ([facility]), GERD (gastroesophageal reflux disease), Hyperlipidemia, Hypertension, RA (rheumatoid arthritis) ([facility]), Seizure ([facility]), Seizures ([facility]), and Sleep apnea. has a past [...] / Caregiver Present: No Diagnosis: CAD in [place] artery s/p CABG on 01/01 Follows Commands: [...] Code Treatment Minutes: 30 Minutes (FA, GT) TASSEL SNIPPER wore PPE in compliance with hospital guidelines and regulation when treating this patient. Samaria Li TASSEL SNIPPER * Kassy Tabares, FENCE SUPERVISOR - COMPUTER REPAIR ENGINEER - 01/09/2023 6:04 AM EDT Images from the original note were not included. Cardiothoracic Surgery/CCM Progress Note PATIENT NAME: Lacy Alvarado DATE: 01/09/23 HPI: 72 y.o. female was referred by Dr. Bhanu Milian. Patient was admitted on 12/18/22 to [facility] with CP history of CHF, CAD, DM [...] SubQ Disposition: TBD; pending discharge to hopefully [facility]. Central Line: []Yes [x] No Arterial Line: []Yes [x] No Araya: []Yes [x] No Restraints: []Yes [x] No Patient discussed and plan of day developed from multidisciplinary rounds between Cardiothoracic Surgery (Cardiothoracic Surgeon, SONYA) and Critical Care Attending Cardiac Core Medications: ASA, Statin, and BB EF: normal 01/01/23 Blood Conservation: Transfused postoperatively Plumbing And Heating Contractor: [employer] * Samaria Li, JANICE - 01/08/2023 10:17 AM EDT Physical Therapy Facility/Department: [facility] Physical Therapy Daily Treatment Note NAME: Lacy Alvarado : 1950 Date of Service: 01/08/2023 Discharge Recommendations: IP Rehab, Prison Facility PT Equipment Recommendations Equipment Needed: No [...] and strength to complete stairs safely with [place] to avoid a fall. Performance Deficits/Impairments: Decreased functional mobility , Decreased endurance, Increased pain, Decreased ADL status, Decreased strength, Decreased posture, Decreased balance Treatment Diagnosis: limited mobility Decision Making: Medium Complexity Patient Diagnosis(es): The primary encounter diagnosis was CAD in [place] artery. A diagnosis of Coronary artery disease involving coronary bypass graft, unspecified whether angina present, unspecified whether [place] or transplanted heart was also pertinent to this visit. has a past medical history of CHF (congestive heart failure) (CMS/HCC) ([facility]), Diabetes mellitus ([facility]), GERD (gastroesophageal reflux disease), Hyperlipidemia, Hypertension, RA (rheumatoid arthritis) ([facility]), Seizure ([facility]), Seizures ([facility]), and Sleep apnea. has a past [...] / Caregiver Present: No Diagnosis: CAD in [place] artery s/p CABG on 01/01 Follows Commands: [...] Treatment Minutes: 39 Minutes (FA, GT. TP) TASSEL SNIPPER wore PPE in compliance with hospital guidelines and regulation when treating this patient. Samaria Li, TASSEL SNIPPER * Chandler Ram, FENCE SUPERVISOR - COMPUTER REPAIR ENGINEER - 01/08/2023 6:04 AM EDT Images from the original note were not included. Cardiothoracic Surgery/CCM Progress Note PATIENT NAME: Lacy Alvarado DATE: 01/08/23 HPI: 72 y.o. female was referred by Dr. Bhanu Milian. Patient was admitted on 12/18/22 to [facility] with CP history of CHF, CAD, DM [...] Conversationsongoing with family about living arrangements at NH. Review of Systems Constitutional: Negative for chills, [...] EF: Normal (01/01/23) Blood Conservation: Transfused post-op. Plumbing And Heating Contractor: [employer] [facility] * Talita Haque RD - [...] provided with heart healthy diet handout with [facility] RD phone number at initial assessment. Will [...] muscle mass loss Fluid Accumulation: Mild Extremities Pressing Department Supervisor Strength: Not Performed Nutrition Assessment: Pt with PMH including HTN, DM, HLD, CHF, RA, epilepsy, GERD, LINA, prior PCI, presented to [facility] on 01/01/23 for CABG after recent admissiont to [facility] on 12/18/22 and had LHC which showed [...] On: Kcal/kg Weight Used for Energy Requirements: [place] (25-30 kcal/kg) Weight for Energy Calculation (kg): 50 kg Total Energy Requirements (kcals/day): 6895-3303 Weight Used for Protein Requirements: [place] (1.2-1.5 g/kg) Weight in Kg Used for [...] Weight: 78 kg (172 lb) (no method) [place] Body Weight (lbs) (Calculated): 110 lbs [place] Body Weight (Kg) (Calculated): 50 kg % [place] Body Weight (Calculated): 157.9 % BMI (kg/m2) [...] to determine Talita Haque RD, LD Contact: *[phone] or via Socialeyes App chat * Kristel Beard MD - 01/07/2023 11:03 AM EDT Department of Internal Medicine Division of Endocrinology, Diabetes, & Metabolism Endocrinology Note Patient Name: Lacy Alvarado : 1950 AGE: 72 y.o. Room/Bed: T1-103/T1-103 A Admission Date: 01/01/2023 Visit Date: 01/07/2023 Reason for Endocrine Consult: post op heart Provider/Team Requesting Consult: cts PCP: MAYDA Marspt [employer] Specialist: No ASSESSMENT: DM 2 with hyperglycemia without mcfp insulin Stress hyperglycemia CAD s/p Cabgx4 PLAN: [...] found for: CHOLHDLRATIO No results found for: [id number] No results found for: TSH, A2MPKKN, U0MKCBY, THYROIDAB Radiology reportsas per the Radiologist Radiology: [...] date of this note. * Samaria Li TASSEL SNIPPER - 01/07/2023 10:41 AM EDT Physical Therapy Facility/Department: [facility] Physical Therapy Daily Treatment Note NAME: Lacy Alvarado : 1950 Date of Service: 01/07/2023 Discharge Recommendations: IP Rehab, [facility] Facility PT Equipment Recommendations Equipment Needed: No [...] The primary encounter diagnosis was CAD in [place] artery. A diagnosis of Coronary artery disease involving coronary bypass graft, unspecified whether angina present, unspecified whether [place] or transplanted heart was also pertinent to this visit. has a past medical history of CHF (congestive heart failure) ([facility]/HCC) ([facility]), Diabetes mellitus ([facility]), GERD (gastroesophageal reflux disease), Hyperlipidemia, Hypertension, RA (rheumatoid arthritis) ([facility]), Seizure ([facility]), Seizures ([facility]), and Sleep apnea. has a past [...] / Caregiver Present: No Diagnosis: CAD in [place] artery s/p CABG on 01/01 Follows Commands: [...] Minutes: 42 Minutes (FA, GT x 2) TASSEL SNIPPER wore PPE in compliance with hospital guidelines and regulation when treating this patient. Samaria Li, TASSEL SNIPPER * Shruthi Weaver, FENCE SUPERVISOR - COMPUTER REPAIR ENGINEER - 01/07/2023 5:53 AM EDT Images from the original note were not included. Cardiothoracic Surgery/[facility] Progress Note PATIENT NAME: Lacy Alvarado DATE: 01/07/23 HPI: 72 y.o. female was referred by Dr. Bhanu Milian. Patient was admitted on 12/18/22 to [facility] with CP history of CHF, CAD, DM [...] EF: 01/01: Normal Blood Conservation: Transfused postop Plumbing And Heating Contractor: [employer] [facility] * Wendy Cassidyults - 01/06/2023 [...] The primary encounter diagnosis was CAD in [place] artery. A diagnosis of Coronary artery disease involving coronary bypass graft, unspecified whether angina present, unspecified whether [place] or transplanted heart was also pertinent to this visit. has a past medical history of CHF (congestive heart failure) (CMS/HCC) ([facility]), Diabetes mellitus (HCC), GERD (gastroesophageal reflux disease), Hyperlipidemia, Hypertension, RA (rheumatoid arthritis) ([facility]), Seizure (HCC), Seizures (HCC), and Sleep [...] Daily Activity Raw Score: 22 ADL Inpatient [facility] G-Code Modifier: CJ Goals Encounter Problems Encounter [...] Plan of Care supervision is transferred to [facility] Occupational Therapist. Goals and/or treatment plan was established in collaboration with patient/family/other representatives. Wendy Curran S/OT * Samaria Li PTA - 01/06/2023 10:07 AM EDT Physical Therapy Facility/Department: [facility] Physical Therapy Daily Treatment Note NAME: [...] The primary encounter diagnosis was CAD in [place] artery. A diagnosis of Coronary artery disease involving coronary bypass graft, unspecified whether angina present, unspecified whether [place] or transplanted heart was also pertinent to this visit. has a past medical history of CHF (congestive heart failure) (CMS/HCC) ([facility]), Diabetes mellitus ([facility]), GERD (gastroesophageal reflux disease), Hyperlipidemia, Hypertension, RA (rheumatoid arthritis) ([facility]), Seizure ([facility]), Seizures ([facility]), and Sleep apnea. has a past [...] / Caregiver Present: No Diagnosis: CAD in [place] artery s/p CABG on 01/01 Follows Commands: [...] Treatment Minutes: 40 Minutes (FA, GT, TP) TASSEL SNIPPER wore PPE in compliance with hospital guidelines and regulation when treating this patient. Samaria Li, TASSEL SNIPPER * Shruthi Weaver, FENCE SUPERVISOR - COMPUTER REPAIR ENGINEER - 01/06/2023 6:06 AM EDT Images from the original note were not included. Cardiothoracic Surgery/[facility] Progress Note PATIENT NAME: Lacy Alvarado DATE: 01/06/23 HPI: 72 y.o. female was referred by Dr. Bhanu Milian. Patient was admitted on 12/18/22 to [facility] with CP history of CHF, CAD, DM [...] EF: 01/01: Normal Blood Conservation: Transfused postop Plumbing And Heating Contractor: [employer] [facility] Associated attestation - [place] [...] Alvarado : 1950 AGE: 72 y.o. Room/Bed: [facility]/[address] Admission Date: 01/01/2023 Visit Date: 01/05/2023 Reason for Endocrine Consult: post op heart Provider/Team Requesting Consult: [facility] PCP: MAYDA GARCIA Outpt [employer] Specialist: No ASSESSMENT: DM 2 with hyperglycemia without mcfp insulin Stress hyperglycemia CAD s/p Cabgx4 PLAN: [...] found for: CHOLHDLRATIO No results found for: [id number] No results found for: TSH, O1ACTXI, W7NQSEN, THYROIDAB Radiology reportsas per the Radiologist Radiology: ECG 12 lead Result Date: 01/01/2023 Sinus rhythm History/Other: Past Medical History: Past Medical History: Diagnosis Date CHF (congestive heart failure) ([facility]/HCC) ([facility]) Diabetes mellitus (HCC) GERD (gastroesophageal reflux disease) Hyperlipidemia Hypertension RA (rheumatoid arthritis) ([facility]) Seizure (HCC) last seizure 5 months ago nathaniel murray 08/24 Seizures ([facility]) Sleep apnea Past Surgical History: Past [...] date of this note. * Chandler Ram, FENCE SUPERVISOR - COMPUTER REPAIR ENGINEER - 01/05/2023 6:19 AM EDT Images from the original note were not included. Cardiothoracic Surgery/CCM Progress Note PATIENT NAME: Lacy Alvarado DATE: 01/05/23 HPI: Lacy Alvarado is a 72 y.o. female was referred to us by Dr. Bhanu Milian. Patient was admitted on12/18/22 to [facility] with CP history of CHF, CAD, DM [...] Nomal (SIS 01/01/23) Blood Conservation: Transfused post-op. Plumbing And Heating Contractor: [employer] [facility] Associated attestation - [place] [...] 01/04/2023 1:07 PM EDT Physical Therapy Facility/Department: [facility] Physical Therapy Daily Treatment Note NAME: [...] her apartment. Currently, recommend IP Rehab at [facility]. Performance Deficits/Impairments: Decreased functional mobility , Decreased endurance, Increased pain, Decreased ADL status, Decreased strength, Decreased posture, Decreased balance Decision Making: Medium Complexity Patient Diagnosis(es): The primary encounter diagnosis was CAD in [place] artery. A diagnosis of Coronary artery disease involving coronary bypass graft, unspecified whether angina present, unspecified whether [place] or transplanted heart was also pertinent to this visit. has a past medical history of CHF (congestive heart failure) (CMS/HCC) ([facility]), Diabetes mellitus ([facility]), GERD (gastroesophageal reflux disease), Hyperlipidemia, Hypertension, RA (rheumatoid arthritis) ([facility]), Seizure ([facility]), Seizures ([facility]), and Sleep apnea. has a past [...] / Caregiver Present: No Diagnosis: CAD in [place] artery s/p CABG on 01/01 Follows Commands: [...] Plan of Care supervision is transferred to [facility] Department Physical Therapist. Ambreen Avitia PT * Angela Smith MD - 01/04/2023 10:34 AM EDT Department of Internal Medicine Division of Endocrinology, Diabetes, & Metabolism Endocrinology Note Patient Name: Lacy Alvarado : 1950 AGE: 72 y.o. Room/Bed: [facility] A Admission Date: 01/01/2023 Visit Date: 01/04/2023 Reason for Endocrine Consult: post op heart Provider/Team Requesting Consult: cts PCP: MAYDA GARCIA Outpt [employer] Specialist: No ASSESSMENT: DM 2 with hyperglycemia without long term care phlebotomist insulin Stress hyperglycemia CAD s/p Cabgx4 PLAN: [...] found for: CHOLHDLRATIO No results found for: [id number] No results found for: TSH, E0GWQGT, C1GHHRO, THYROIDAB Radiology reportsas per the Radiologist Radiology: [...] date of this note. * Chandler Ram, FENCE SUPERVISOR - COMPUTER REPAIR ENGINEER - 01/04/2023 6:02 AM EDT Images from the original note were not included. Cardiothoracic Surgery/[facility] Progress Note PATIENT NAME: Lacy Alvarado DATE: 01/04/23 HPI: Lacy Alvarado is a 72 y.o. female was referred to us by Dr. Bhanu Milian. Patient was admitted on12/18/22 to [facility] with CP history of CHF, CAD, DM [...] Nomal (SIS 01/01/23) Blood Conservation: Transfused post-op. Plumbing And Heating Contractor: [employer] [facility] * Angela Smith MD - 01/03/2023 9:18 AM EDT Department of Internal Medicine Division of Endocrinology, Diabetes, & Metabolism Endocrinology Note Patient Name: Lacy Alvarado : 1950 AGE: 72 y.o. Room/Bed: [facility]103/[facility] A Admission Date: 01/01/2023 Visit Date: 01/03/2023 Reason for Endocrine Consult: post op heart Provider/Team Requesting Consult: cts PCP: MAYDA GARCIA Outpt [employer] Specialist: No ASSESSMENT: DM 2 with hyperglycemia without mcfp insulin Stress hyperglycemia CAD s/p Cabgx4 PLAN: [...] found for: CHOLHDLRATIO No results found for: [id number] No results found for: TSH, K9LJKWS, S7UNRJF, THYROIDAB Radiology reportsas per the Radiologist Radiology: ECG 12 lead Result Date: 01/01/2023 Sinus rhythm History/Other: Past Medical History: Past Medical History: Diagnosis Date CHF (congestive heart failure) ([facility]/HCC) (HCC) Diabetes mellitus (HCC) GERD (gastroesophageal reflux [...] date of this note. * Chandler Ram, FENCE SUPERVISOR - COMPUTER REPAIR ENGINEER - 01/03/2023 5:56 AM EDT Images from the original note were not included. Cardiothoracic Surgery/[facility] Progress Note PATIENT NAME: Lacy Alvarado DATE: 01/03/23 HPI: Lacy Alvarado is a 72 y.o. female was referred to us by Dr. Bhanu Milian. Patient was admitted on12/18/22 to [facility] with CP history of CHF, CAD, DM [...] Nomal (SIS 01/01/23) Blood Conservation: Transfused post-op. Plumbing And Heating Contractor: [employer] [facility] * Aleksandr Higuera, PT - 01/02/2023 11:02 AM EDT Physical Therapy Facility/Department: [facility] Physical Therapy Initial Evaluation NAME: Lacy [...] The primary encounter diagnosis was CAD in [place] artery. A diagnosis of Coronary artery disease involving coronary bypass graft, unspecified whether angina present, unspecified whether [place] or transplanted heart was also pertinent to this visit. has a past medical history of CHF (congestive heart failure) (CMS/HCC) ([facility]), Diabetes mellitus ([facility]), GERD (gastroesophageal reflux disease), Hyperlipidemia, Hypertension, RA (rheumatoid arthritis) ([facility]), Seizure ([facility]), Seizures ([facility]), and Sleep apnea. has a past [...] / Caregiver Present: No Diagnosis: CAD in [place] artery s/p CABG on 01/01 Follows Commands: [...] Plan of Care supervision is transferred to [facility] Department Physical Therapist. Aleksandr Higuera, PT * Cassandra Olivarez, GORDO - MARINE FIRER - 01/02/2023 9:28 AM EDT Department of Internal Medicine Division of Endocrinology, Diabetes, & Metabolism Endocrinology Note Patient Name: Lacy Alvarado : 1950 AGE: 72 y.o. Room/Bed: T1-103/T1-103 A Admission Date: 01/01/2023 Visit Date: 01/02/2023 Reason for Endocrine Consult: post op heart Provider/Team Requesting Consult: cts PCP: MAYDA GARCIA Outpt [employer] Specialist: No ASSESSMENT: Cad s/p Cabgx4 Dm2 with hyperglycemia without long term care phlebotomist insulin Stress hyperglycemia Chf Hld/htn PLAN: discontinue [...] regular, 1-50 Units/hr, Last Rate: Stopped (01/02/23 3719) nitroprusside, 0.1-3 mcg/kg/min, Last Rate: Stopped (01/02/23 8173) PRN Meds:PRN medications: calcium gluconate, dextrose, dextrose, [...] found for: CHOLHDLRATIO No results found for: [id number] No results found for: TSH, K0NHQEQ, C2ABOEP, THYROIDAB Radiology reportsas per the Radiologist Radiology: ECG 12 lead Result Date: 01/01/2023 Sinus rhythm History/Other: Past Medical History: Past Medical History: Diagnosis Date CHF (congestive heart failure) ([facility]/HCC) (HCC) Diabetes mellitus (HCC) GERD (gastroesophageal reflux [...] in note. * Chandler Ram APRN - COMPUTER REPAIR ENGINEER - 01/02/2023 5:56 AM EDT Images from the original note were not included. Cardiothoracic Surgery/[facility] Progress Note PATIENT NAME: Lacy Alvarado DATE: 01/02/23 HPI: Lacy Alvarado is a 72 y.o. female was referred to us by Dr. Bhanu Milian. Patient was admitted on12/18/22 to [facility] with CP history of CHF, CAD, DM [...] Nomal (SIS 01/01/23) Blood Conservation: Transfused post-op. Plumbing And Heating Contractor: [employer] [facility] Associated attestation - Carlos Chavarria [...] care time 35 minutes documented in this [facility]09-09-2023 Note* Care Coordination - Alaina Truong RN - 01/10/2023 2:11 PM EDT Images from the original note were not included. CARE COORDINATION DAILY NOTE/UPDATE Medical Plan: sp CABG x 3 POD # 9. Discharge Plan: [facility] Discharge Barriers: pending medical clearance Received a message from Anna COLLINS I heard from [facility] okay to admit. Stated by Shruthi Marshall [...] RN 01/02/2023 2:07 PM 01/06/2023 Shruthi Weaver, FENCE SUPERVISOR - COMPUTER REPAIR ENGINEER 01/01/2023 11:16 AM 01/06/2023 Azam Rose MD 01/01/2023 5:45 AM Length of Stay (Days): 9 GMLOS: 5.9 [id number]* Care Coordination - Delores Mullins RN - 01/09/2023 10:21 AM EDT Images from the original note were not included. Care Management Progress Note Patient remains on [facility]U sp CABG x 3 POD # 8. [facility] Trans[facility] Unit can accept, spoke with [...] RN 01/02/2023 2:07 PM 01/06/2023 Shruthi Weaver, FENCE SUPERVISOR - COMPUTER REPAIR ENGINEER 01/01/2023 11:16 AM 01/06/2023 Azam Rose MD 01/01/2023 5:45 AM Length of Stay (Days): 8 GMLOS: 5.9 [id number] Hospital Discharge instructions* Discharge Instructions* GORDO Felix CNP - 01/09/2023 8:42 AM EDT Cardiothoracic Surgery: Symptom Management Office phone number: [phone] Office is open 8:30 am -4 pm. [...] Call cardiothoracic surgery line for further instructions: [phone] Office is open 8:30 am -4 pm. [...] Problems Problem List * (Principal) CAD in [place] artery Allergic disorder Amnesia Arthritis Overview Signed [...] Dissociative disorder DM2 (diabetes mellitus, type 2) ([facility]) Overview Signed 01/01/2023 3:09 PM by [...] deficiency Overview Signed 01/01/2023 3:09 PM by uJan J Zuluaga MD Dx 1 year ago, [...] Zuluaga MD DME: Camacho Titration done @ [facility] 03/08/2012 recommended CPAP @ 11 [...] assistance Toileting Minimal assistance Feeding Minimal assistance Booster Pump Oiler Independent Med Delivery yes Wound Care Documentation [...] Facility/ Agency Name: [facility] Address: [address] [place] [address] Fax: Dialysis Facility (if applicable) Name: Address: Dialysis Schedule: Phone: Fax: Fashion Editor/Anthropometrist signature: ICIAN SECTION Prognosis: good Condition at [...] the diagnosis listed and that she requires halfway facility for less than 30 days. Update Admission H&P: Changes in H&P as follows: see below 72 y.o. female was referred by Dr. Bhanu Milian. Patient was admitted on 12/18/22 to [facility] with CP history of CHF, CAD, DM [...] through Care Everywhere. * Heart Healthy Diet (Prydeinig) documented in this encounterSOhioHealth Berger [id number] Note* Care Coordination - Good Jang - 01/09/2023 8:15 AM EDT Referral placed to [facility] via [facility] per [facility] request. Referral placed to [facility] via fax # [phone] to Shauna in Admissions Await review and response regarding ability to accept. [facility] notified. [facility] [id number] Note* Care Coordination - Good Jang - 01/08/2023 3:06 PM EDT Referral placed to SNF- [facility] via [facility] per [facility] request. Await review and response regarding ability to accept. [facility] notified. [facility] HospitalOkyfvm83-40-0368 Note* Care Coordination - Delores Mullins RN - 01/08/2023 2:36 PM EDT Spoke with patient at bedside, nipema Holloway over the phone to discuss therapy recommendations. Agreeable to SNF, [facility] and 2nd choice [facility]. [facility] HospitalQzrbfw66-72-4922 Note* Care Coordination - Delores Mullins RN - 01/07/2023 2:18 PM EDT Images from the original note were not included. Care Management Progress Note Patient remains on HLU s/p CABG x 3 POD # 6. PT continuing to recommend IPR vs SNF. [facility] unable to accept patient, [facility], patient and niece declining SNF, discharge plan is home with [facility]. TCC to follow for updated therapy [...] RN 01/02/2023 2:07 PM 01/06/2023 Shruthi Weaver, FENCE SUPERVISOR - COMPUTER REPAIR ENGINEER 01/01/2023 11:16 AM 01/06/2023 Azam Rose MD 01/01/2023 5:45 AM Length of Stay (Days): 6 GMLOS: 5.9 [facility] HospitalSwmtib07-30-7406 NoteReceived referral and reviewed chart. Phase II Cardiac Rehab Referral discussed with Lacy Alvarado. Patient prefers cardiac rehab at [facility]. Given information on cardiac rehab at preferred location. [facility]09-05-2023 Note* Care Coordination - Delores Mullins RN - 01/06/2023 1:01 PM EDT [facility] unable to accept patient, too functional. Updated patient at bedside and alyssa Holloway (HCPMARISOL) over the phone. Declined SNF at this time, would like to plan discharge home with HHC including PT/OT/SN/REGION MANAGER if possible. Will updated [facility], CTS PRODUCTIVITY ENGINEER aware. [facility] [id number] Consult note* Faiza Thomas - 01/06/2023 11:33 AM EDTAssociated Order(s): IP CONSULT TO CARDIAC REHAB Received referral and reviewed chart. Phase II Cardiac Rehab Referral discussed with Lacy Alvarado. Patient prefers cardiac rehab at [facility]. Given information on cardiac rehab at preferred location. [facility] HospitalXpacoy07-54-1463 Consult note* Faiza Thomas - 01/06/2023 11:33 AM EDTAssociated Order(s): IP CONSULT TO CARDIAC REHAB Received referral and reviewed chart. Phase II Cardiac Rehab Referral discussed with Lacy Alvarado. Patient prefers cardiac rehab at [facility]. Given information on cardiac rehab [...] heart healthy diet handout at bedside with [facility] RD phone number. 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 Pt underwent CABG x 4 01/01. Extubated with diet ordered. Pt is sleeping in chair at time of RD visit-did not disturb. Provided heart healthy diet handout with [facility] RD phone number for reference at bedside. Estimated Daily Nutrient Needs: Energy Requirements Based On: Kcal/kg Weight Used for Energy Requirements: [place] (25-30 kcal/kg) Weight for Energy Calculation (kg): 50 kg Total Energy Requirements (kcals/day): 5639-6852 Weight Used for Protein Requirements: [place] (1.2-1.5 g/kg) Weight in Kg Used for [...] Weight: 78 kg (172 lb) (no method) [place] Body Weight (lbs) (Calculated): 110 lbs [place] Body Weight (Kg) (Calculated): 50 kg % [place] Body Weight (Calculated): 157.9 % BMI (kg/m2) [...] to determine Talita Haque RD, LD Contact: *[phone] or via [employer] App chat * Kaye Sanchez APRN - COMPUTER REPAIR ENGINEER - 01/01/2023 11:40 AM EDTAssociated Order(s): IP CONSULT TO ENDOCRINOLOGY Department of Internal Medicine Division of Endocrinology, Diabetes, & Metabolism Endocrinology Note Patient Name: Lacy Alvarado : 1950 AGE: 72 y.o. Room/Bed: T1-103/T1-103 A Admission Date: 01/01/2023 Visit Date: 01/01/2023 Reason for Endocrine Consult: post op heart Provider/Team Requesting Consult: cts PCP: MAYDA GARCIA Outpt Oracle Specialist: No ASSESSMENT: Cad s/p Cabgx4 Dm2 with hyperglycemia without mcfp insulin Stress hyperglycemia Chf Hld/htn PLAN: Continue [...] found for: CHOLHDLRATIO No results found for: FCIP76LLD No results found for: TSH, K9JJPHH, J5NYZXO, THYROIDAB Radiology reportsas per the Radiologist Radiology: [...] in note. * Mynor Villareal APRN - COMPUTER REPAIR ENGINEER - 01/01/2023 8:58 AM EDT Images from the original note were not included. [facility]: Critical Care Consultation Note Date: 01/01/23 PATIENT NAME: Lacy Alvarado : 1950 (72 y.o.) Reason for Consult: Critical Care & Vent Management HPI: Lacy Alvarado is a 72 y.o. female was referred to us by Dr. Bhanu Milian. Patient was admitted on12/18/22 to [facility] with CP history of CHF, CAD, DM [...] on 01/01/2023 12/24/22 Kassy Tabares APRN - COMPUTER REPAIR ENGINEER traMADol (Ultram) 50 MG tablet Take 50 [...] PM EDT I have personally performed a gxto-uy-lnpx diagnostic evaluation on this patient on date of maflack26/31/23 . History, labs, imaging studies, and electronic medical record have been reviewed by me. This notedocumented by the []warehouse team member [x]SONYA reflects my history, exam, and medical [...] CTs No Pacer wires documented in this [facility]09-05-2023 NoteCare Management Progress Note Patient remains on [...] 2:07 PM 01/06/2023 Shruthi Weaver APRN - COMPUTER REPAIR ENGINEER 01/01/2023 11:16 AM 01/06/2023 Azam Rose MD 01/01/2023 5:45 AM Length of Stay (Days): 5 GMLOS: 5.9 [facility]09-05-2023 Note* Care Coordination - Delores Mullins RN [...] RN 01/02/2023 2:07 PM 01/06/2023 Shruthi Weaver, FENCE SUPERVISOR - COMPUTER REPAIR ENGINEER 01/01/2023 11:16 AM 01/06/2023 Azam Rose MD 01/01/2023 5:45 AM Length of Stay (Days): 5 GMLOS: 5.9 [facility] HospitalCeyqzf76-74-7685 NoteCardiothoracic Surgery/CCM Progress Note PATIENT NAME: Lacy Alvarado DATE: 01/04/23 HPI: Lacy Alvarado is a 72 y.o. female was referred to us by Dr. Bhanu Milian. Patient was admitted on 12/18/22 to [facility] with CP history of CHF, CAD, DM [...] Nomal (SIS 01/01/23) Blood Conservation: Transfused post-op. Plumbing And Heating Contractor: [facility] [id number] NoteCardiothoracic Surgery/CCM Progress Note PATIENT NAME: Lacy Alvarado DATE: 01/03/23 HPI: Lacy Alvarado is a 72 y.o. female was referred to us by Dr. Bhanu Milian. Patient was admitted on 12/18/22 to [facility] with CP history of CHF, CAD, DM [...] Nomal (SIS 01/01/23) Blood Conservation: Transfused post-op. Plumbing And Heating Contractor: [facility]09-02-2023 Plan of care note* Care Plan - [...] Interventions Goal: Assess Nutritional Intake Outcome: Progressing [facility] HospitalNofkzg86-14-8832 Note* Home Care - Lisa Yo RN - 01/02/2023 3:39 PM EDT Lining Stitcher following case for Discharge Needs. [facility] HospitalIfllji01-24-8272 NoteNutrition Assessment Type and Reason for Visit: [...] heart healthy diet handout at bedside with [facility] RD phone number. 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 Pt underwent CABG x 4 01/01. Extubated with diet ordered. Pt is sleeping in chair at time of RD visit-did not disturb. Provided heart healthy diet handout with [facility] RD phone number for reference at bedside. Estimated Daily Nutrient Needs: Energy Requirements Based On: Kcal/kg Weight Used for Energy Requirements: [place] (25-30 kcal/kg) Weight for Energy Calculation (kg): 50 kg Total Energy Requirements (kcals/day): 6518-3063 Weight Used for Protein Requirements: [place] (1.2-1.5 g/kg) Weight in Kg Used for [...] 78.8 kg (173 lb 11.6 oz) (01/02 [facility]) Admission Body Weight: 78 kg (172 lb) (no method) [place] Body Weight (lbs) (Calculated): 110 lbs [place] Body Weight (Kg) (Calculated): 50 kg % [place] Body Weight (Calculated): 157.9 % BMI (kg/m2) [...] to determine Talita Haque RD, LD Contact: *[phone] or via [employer] [id number] Note* Care Coordination - Delores Mullins RN - 01/02/2023 2:07 PM EDT Care Managment Initial Assessment Date: 01/02/2023 Patient Name: Lacy Alvarado : 1950 Patient Information Source of Information: Patient Cognition/Language: WFL - Within Functional Limits Permission given to speak with patient direct marketing representative/caregiver as indicated: Yes Confirmation of Payer with patient/family: Yes Payer Name: Anthem Medicare [place]: No Confirmation of Primary Care Physician: Confirmed [...] Living Prescription Coverage: Yes Pharmacy Used: [facility] Medication Management: Independent Transportation/Shopping: Assistance Provider [...] for home care needs. Delores Mullins RN [facility] HospitalQddxsh25-65-2753 Consult note* Talita Haque RD - 01/02/2023 [...] heart healthy diet handout at bedside with [facility] RD phone number. 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 Pt underwent CABG x 4 01/01. Extubated with diet ordered. Pt is sleeping in chair at time of RD visit-did not disturb. Provided heart healthy diet handout with [facility] RD phone number for reference at bedside. Estimated Daily Nutrient Needs: Energy Requirements Based On: Kcal/kg Weight Used for Energy Requirements: [place] (25-30 kcal/kg) Weight for Energy Calculation (kg): 50 kg Total Energy Requirements (kcals/day): 5656-5951 Weight Used for Protein Requirements: [place] (1.2-1.5 g/kg) Weight in Kg Used for [...] 78.8 kg (173 lb 11.6 oz) (01/02 [facility]) Admission Body Weight: 78 kg (172 lb) (no method) [place] Body Weight (lbs) (Calculated): 110 lbs [place] Body Weight (Kg) (Calculated): 50 kg % [place] Body Weight (Calculated): 157.9 % BMI (kg/m2) [...] to determine Talita Haque RD, LD Contact: *[phone] or via Socialeyes App chat [facility] HospitalEhgqrm72-26-8884 NotePatient: Lacy Alvarado Procedure Summary Date: 01/01/23 Room / Location: [address] Operating Room Anesthesia Start: 657 Anesthesia Stop: 1128 Procedures: CABG AND SIS (Chest) Echocardiography transesophageal real-time Diagnosis: Atherosclerotic heart disease of [place] coronary artery without angina pectoris (Atherosclerotic heart disease of [place] coronary artery without angina pectoris [I25.10]) Surgeons: [...] discharged once all PACU criteria has been met.[facility]08-31-2023 NotePatient: Lacy Alvarado Procedure Summary Date: 01/01/23 Room / Location: [facility] OR [address] [place] [address] Operating Room Anesthesia Start: 657 Anesthesia Stop: 1128 Procedures: CABG AND SIS (Chest) Echocardiography transesophageal real-time Diagnosis: Atherosclerotic heart disease of [place] coronary artery without angina pectoris (Atherosclerotic heart disease of [place] coronary artery without angina pectoris [I25.10]) Surgeons: [...] questions and acknowledgement of understanding.[facility] [id number] NoteArterial Line: Date/Time: 01/01/2023 7:05 AM An [...] secured by Tegaderm and tape. Staffing Performed: CLOTH FINISHING RANGE BACK TENDER Anesthesiologist: Cruzito Frost MD Resident/CLOTH FINISHING RANGE BACK TENDER: Azar Rojo APRN - BOB Performed by: Azar Rojo APRN - BOB Authorized by: Azar Rojo APRN - [place] [address]-31-2023 Consult note* Kaye Sanchez APRN - [facility] - 01/01/2023 11:40 AM EDTAssociated Order(s): IP CONSULT TO ENDOCRINOLOGY Department of Internal Medicine Division of Endocrinology, Diabetes, & Metabolism Endocrinology Note Patient Name: Lacy Alvarado : 1950 AGE: 72 y.o. Room/Bed: [facility] A Admission Date: 01/01/2023 Visit Date: 01/01/2023 Reason for Endocrine Consult: post op heart Provider/Team Requesting Consult: cts PCP: MAYDA GARCIA Outpt Oracle Specialist: No ASSESSMENT: Cad s/p Cabgx4 Dm2 with hyperglycemia without long term care phlebotomist insulin Stress hyperglycemia Chf Hld/htn PLAN: Continue [...] found for: CHOLHDLRATIO No results found for: DVAI56GEJ No results found for: TSH, R6YCRDS, A1GIMGM, THYROIDAB Radiology reportsas per the Radiologist Radiology: [...] coordination of care as documented in note. [employer] Phone: 1(310) 223-548108-31-2023 NoteAirway Date/Time: 01/01/2023 7:08 AM Urgency: scheduled Airway not difficult General Information and Staff Patient location during procedure: Procedural Anesthesiologist: Cruzito Frost MD Resident/CLOTH FINISHING RANGE BACK TENDER: GORDO Kenney CRNA Performed: CLOTH FINISHING RANGE BACK TENDER Performed by: GORDO Kenney CRNA Authorized by: [...] attempts: BVM Number of other approaches attempted: [address] [place], [place] [id number] Note Central Venous Line: Date/Time: 01/01/2023 7:26 [...] CRNA Authorized by: Azar Rojo APRN - [facility] Consult note* GORDO Bennett CNP - 01/01/2023 8:58 AM EDT Images from the original note were not included. [facility] Group: Critical Care Consultation Note Date: 01/01/23 PATIENT NAME: Lacy Alvarado : 1950 (72 y.o.) Reason for Consult: Critical Care & Vent Management HPI: Lacy Alvarado is a 72 y.o. female was referred to us by Dr. Bhanu Milian. Patient was admitted on12/18/22 to [facility] with CP history of CHF, CAD, DM [...] PM EDT I have personally performed a dzxw-vy-gdfk diagnostic evaluation on this patient on date of wmjaial33/31/23 . History, labs, imaging studies, and electronic medical record have been reviewed by me. This notedocumented by the []warehouse team member [x]SONYA reflects my history, exam, and medical [...] air leak in CTs No Pacer wires [employer] Phone: 1([phone]) 817-760608-31-2023 Note* Op Note - Azam Rose MD [...] intraoperative transesophageal echocardiography Surgeon: Azam Rose MD Airline Captain(s): [] Thomas Silva [x] Raymundo Marie [...] Milian. Patient was admitted on 12/18/22 to [facility] with CP. She had a history of [...] with closure. The sternum was reapproximated with wzotgs-dm-zhyni wires and the overlying tissues were closed in multiple layers. The patient was transported to the intensive care unit in serious but stable condition. [facility]08-28-2023 NotePatient: Lacy Eduardo Procedure Information Date/Time: 01/01/23729 Procedures: CABG AND SIS (Chest) Echocardiography transesophageal real-time Location: [facility] OR [address] [place] [address] Operating Room Surgeons: Azam Rose MD Past Medical History: Past Medical History: No date: CHF (congestive heart failure) ([facility]/H[facility]) ([facility]) No date: Diabetes mellitus ([facility]) No date: GERD (gastroesophageal reflux disease) No date: Hyperlipidemia No date: Hypertension No date: RA (rheumatoid arthritis) ([facility]) No date: Seizure ([facility]) Comment: last seizure 5 months ago nathaniel mal 08/24 No date: Seizures ([facility]) No date: Sleep apnea Past Surgical [...] results found for this or any previous visit.[facility] 12-29-2022 NoteComprehensive Pre Surgical History and Physical ? Name: Lacy Alvarado : 1950 (Age-72 y.o.) Date of Service: Pt seen/examined on 12/29/2022 Procedure Information Date/Time: 01/01/23 0730 Procedures: CABG AND SIS (Chest) Echocardiography transesophageal real-time Location: [facility] OR [facility] Operating Room Surgeons: Azam Rose MD Chief [...] cardiopulmonary testing. 1) Atherosclerotic heart disease of [place] coronary artery without angina pectoris [I25.10] Pre-op diagnosis: Atherosclerotic heart disease of [place] coronary artery without angina pectoris [I25.10] - [...] who we are asked to see/evaluate by [place] [address] for pre-operative evaluation prior to . CABG AND SIS (Chest) [75090 CPT(R)] Echocardiography transesophageal real-time [50471 CPT(R)] Anesthesia type: General Reason for Visit: [...] Milian. Patient was admitted on 12/18/22 to [facility] with CP. Per notes, patient has a [...] date: Hypertension No date: RA (rheumatoid arthritis) ([facility]) No date: Seizure (HCC) Comment: last seizure 5 months ago nathaniel murray 08/24 No date: Seizures ([facility]) No date: Sleep apnea Past Surgical [...] tablet Take 75 mg (more content not included)...[facility]08-28-2023 NoteComprehensive Pre Surgical History and Physical ? Name: Lacy Alvarado : 1950 (Age-72 y.o.) Date of Service: Pt seen/examined on 12/29/2022 Procedure Information Date/Time: 01/01/23 0730 Procedures: CABG AND SIS (Chest) Echocardiography transesophageal real-time Location: [facility] OR [facility] Operating Room Surgeons: Azam Rose MD Chief [...] cardiopulmonary testing. 1) Atherosclerotic heart disease of [place] coronary artery without angina pectoris [I25.10] Pre-op diagnosis: Atherosclerotic heart disease of [place] coronary artery without angina pectoris [I25.10] - [...] who we are asked to see/evaluate by [facility] 05 for pre-operative evaluation prior to . CABG AND SIS (Chest) [56222 CPT(R)] Echocardiography transesophageal real-time [01857 CPT(R)] Anesthesia type: General Reason for Visit: [...] Milian. Patient was admitted on 12/18/22 to [facility] with CP. Per notes, patient has a [...] History: No date: CHF (congestive heart failure) ([facility]) ([facility]) No date: Diabetes mellitus ([facility]) No date: GERD (gastroesophageal reflux disease) No date: Hyperlipidemia No date: Hypertension No date: RA (rheumatoid arthritis) ([facility]) No date: Seizure ([facility]) Comment: last seizure 5 months ago nathaniel trevor 08/24 No date: Seizures ([facility]) No date: Sleep apnea Past Surgical [...] swallow. 12/24/22 12/24/22 Kassy Tabares APRN - COMPUTER REPAIR ENGINEER clopidogrel (Plavix) 75 MG tablet Take 75 mg (more content not included)...[facility] [id number] History and physical note* Yolande Serra APRN - COMPUTER REPAIR ENGINEER - 12/29/2022 2:00 PM EDT Images from the original note were not included. Comprehensive Pre Surgical History and Physical ? Name: Lacy Alvarado : 1950 (Age-72 y.o.) Date of Service: Pt seen/examined on 12/29/2022 Procedure Information Date/Time: 01/01/23 0730 Procedures: CABG AND SIS (Chest) Echocardiography transesophageal real-time Location: [facility] OR [facility] Operating Room Surgeons: Azam Rose MD Chief [...] cardiopulmonary testing. 1) Atherosclerotic heart disease of [place] coronary artery without angina pectoris [I25.10] Pre-op diagnosis: Atherosclerotic heart disease of [place] coronary artery without angina pectoris [I25.10] - [...] who we are asked to see/evaluate by [place] [address] for pre-operative evaluation prior to. CABG AND SIS (Chest) [60940 CPT(R)] Echocardiography transesophageal real-time [50758 CPT(R)] Anesthesia type: General Reason for Visit: [...] Milian. Patient was admitted on 12/18/22 to [facility] with CP. Per notes, patient has a history of CHF, CAD, DM type 2, hyperlipidemia, epilepsy, HTN, RA, LINA, and prior PCI with stent of theleft anterior descending artery. . Patient underwent a left heart catheterization that demonstrated: a high grade lesion in the circumflex artery. Patient also had an echo done which showed mild (1+)tricuspid valve insufficiency. Dr Rsoe office note 12/23/2022 ? Denies history of RI, TIA, CVA Past Medical History: Past Medical History: No date: CHF (congestive heart failure) ([facility]) ([facility]) No date: Diabetes mellitus ([facility]) No date: GERD (gastroesophageal reflux disease) No date: Hyperlipidemia No date: Hypertension No date: RA (rheumatoid arthritis) ([facility]) No date: Seizure ([facility]) Comment: last seizure 5 months ago felixnapoleon murray 08/24 No date: Seizures ([facility]) No date: Sleep apnea Past Surgical [...] Larkin CNP Date: 12/29/2022 at 2:58 PM [employer] Phone: 1(182) 508-551608-28-2023 History and physical note* GORDO Larkin CNP - 12/29/2022 2:00 PM EDT Images from the original note were not included. Comprehensive Pre Surgical History and Physical ? Name: Lacy Alvarado : 1950 (Age-72 y.o.) Date of Service: Pt seen/examined on 12/29/2022 Procedure Information Date/Time: 01/01/23 0730 Procedures: CABG AND SIS (Chest) Echocardiography transesophageal real-time Location: [address] Operating Room Surgeons: Azam Rose MD [...] cardiopulmonary testing. 1) Atherosclerotic heart disease of [place] coronary artery without angina pectoris [I25.10] Pre-op diagnosis: Atherosclerotic heart disease of [place] coronary artery without angina pectoris [I25.10] - [...] who we are asked to see/evaluate by [place] [address] for pre-operative evaluation prior to. CABG AND SIS (Chest) [37930 CPT(R)] Echocardiography transesophageal real-time [15361 CPT(R)] Anesthesia type: General Reason for Visit: [...] Milian. Patient was admitted on 12/18/22 to [facility] with CP. Per notes, patient has a [...] History: No date: CHF (congestive heart failure) ([facility]/HCC) ([facility]) No date: Diabetes mellitus ([facility]) No date: GERD (gastroesophageal reflux disease) No date: Hyperlipidemia No date: Hypertension No date: RA (rheumatoid arthritis) ([facility]) No date: Seizure ([facility]) Comment: last seizure 5 months ago nathaniel murray 08/24 No date: Seizures ([facility]) No date: Sleep apnea Past Surgical [...] of surgery 12/24/22 Kassy Tabares APRN - COMPUTER REPAIR ENGINEER pantoprazole (ProtoNix) 40 MG EC tablet Take [...] 12/29/2022 at 2:58 PM documented in this [facility] [id number] Telephone encounter Note* Telephone Encounter - GORDO Felix CNP - 12/24/2022 11:44 AM EDT Surg proc orders placed, medications e-scribed - talked to patient, answered all questions. [facility] [id number] Miscellaneous Notes* Telephone Encounter - GORDO Felix [...] mouth rinse [] Other: documented in this [facility]08-22-2023 NotePrep for Procedure Order Request: 12/23/22 Surgeon: Dr. Rose Surgery/Procedure: CABG & SIS Plan Admit: Yes PAT Appointment: 12/26/22 at 1:00 PM Date if yes: Date of Surgery/Procedure: 01/01/23 at 7:30 AM Medication needed held: [] None [] Other: Medication needed prescribed: [] None [x] Nasal ointment and mouth rinse [] Other: [facility]08-22-2023 Telephone encounter Note* Telephone Encounter - Katarzyna [...] Nasal ointment and mouth rinse [] Other: [facility] [id number] History of Present illness Narrative* Azam Rose MD - 12/23/2022 10:30 AM EDT Images from the original note were not included. [facility] CARDIOVASCULAR & THORACIC SURGERY [address] [facility] [address] Dept: [phone] Dept Loc: [phone] Visit type: New Reason for Visit: Multivessel [...] Milian. Patient was admitted on 12/18/22 to [facility] with CP. Per notes, patient has a [...] This note may have been dictated using [employer] Edition 2.6 and/or [employer] Voice Recognition Feature. The document was proofread, however unrecognized voice recognition vehicle care specialist errors may be present. documented in this [facility]08-22-2023 History of Present illness Narrative* Azam Rose MD - 12/23/2022 10:30 AM EDT Images from the original note were not included. [facility] CARDIOVASCULAR & THORACIC SURGERY [address] [facility] [address] Dept: [phone] Dept Loc: [phone] Visit type: New Reason for Visit: Multivessel [...] Milian. Patient was admitted on 12/18/22 to [facility] with CP. Per notes, patient has a [...] This note may have been dictated using [employer] Practice Edition 2.6 and/or [employer] Voice Recognition Feature. The document was proofread, however unrecognized voice recognition vehicle care specialist errors may be present. documented in this [facility]08-18-2023 Discharge summary [facility] December 19, 2022 3:41pm Note Date/Time December 19, 2022 3: 38pm [facility] Medical Records Department [address] [place] [place] [address] Instructions for Home/Discharge Instructions 12/19/22 1537 MR#: [id number] Acct: [id number] Name: LACY ALVARADO Ede Rep #:[id number] 4 : 1950 72 From: Edwin Mo [...] Follow-up with the cardiothoracic surgery team at [place] as discussed. Discharge Orders/Prescriptions Prescriptions: New isosorbide [...] Prolia 60 mg/mL syringe 60 mg subcut [id number] Qty: 1 2RF Discontinued isosorbide mononitrate 30 [...] MD; Dr. Bhanu Milian MD ~ Signed [facility] Work Phone: 1(921) 802-749708-18-2023 Procedure [facility] 12-19-2022 Consult note Author Bhanu Milian [facility] December 19, 2022 4:13pm Note Date/Time December 19, 2022 8: 32am [facility] Medical Records Department [address] [place] [place] [address] Consultation - Cardiology 12/19/22 0830 MR#: [id number] Acct: [id number] Name: LACY ALVARADO Rep #:[id number] 9 : 1950 72 From: Karen LÓPEZ PA PCP: Dr. Mayda Garcia MD Status:A DM DELFIN Location: [place] [id number] <Statement entered by Bhanu Milian MD [...] She was referred to Dr. Rose at [facility]. She will follow-up with them on an [...] is a 72 F who presented to [facility] ER on 12/18/22 with Chest [...] 60%, circumflex 50% stenosis, RCA 60% stenosis. [facility] Medical History Abdominal pain Acute back pain Anemia Arthritis Atherosclerotic heart disease of [place] coronary artery without angina pectoris Cardiology follow-up [...] mg/mL subcutaneous syringe (Prolia) 60 mg subcut [id number] #1 mL 12/11/22 [Rx Last Taken Unknown] [...] Garcia MD; Dr. Bhanu Milian MD~ Signed [facility] Work Phone: 1(937) 597-104108-17-2023 History and physical note Author Edwin gerber [facility] December 18, 2022 4:38pm Note Date/Time December 18, 2022 4: 36pm [facility] Medical Records Department [address] [place] [address] H&P Exam - Hospitalist 12/18/22 1627 MR#: [id number] Acct: [id number] Name: LACY ALVARADO Rep #:[id number] 2 : 1950 72 From: Edwin martin DO PCP: Dr. Mayda Garcia MD Status:A DM DELFIN Location: [place] [address] HPI - General General Date of Admission: 12/18/22 Date of Service: 12/18/22 Chief Complaint: Chest pain HPI Narrative Lacy Alvarado is a 72-year-old female with history significant for CAD s/p stenting on Plavix (follows w/ Dr. Johnson), hypertension, seizures, add-rrzljpe-kxdqrlqxi type 2 diabetes and GERD who presented to the [facility] ED on 12/18 with chest pain. Patient [...] to view this. Chest x-ray was nonacute. [facility] Medical History Abdominal pain Acute back pain Anemia Arthritis Atherosclerotic heart disease of [place] coronary artery without angina pectoris Cardiology follow-up [...] mg/mL subcutaneous syringe (Prolia) 60 mg subcut [id number] #1 mL 12/11/22 [Rx Last Taken Unknown] [...] 43.9 L, Lymph % (Auto) 45.0 H, [place] % (Auto) 8.1, Eos % (Auto) 2.4, [...] Plavix (follows w/ Dr. Johnson), hypertension, seizures, zya-ddxceen-hrckmekqa type 2 diabetes and GERD who presented to the [facility] ED on 12/18 with chest pain. 1. [...] Seizure disorder ? Continue home divalproex. 4. Ahv-aifygig-sialatbey type 2 diabetes ? Home medication of Sitagliptin. Will monitor blood sugars here, can add on sliding scale insulin as needed. DVT prophylaxis: Heparin drip CODE STATUS: Full code, verified Expected disposition: Home, tomorrow Total clinical time spent by myself addressing the patient's medical issues, reviewing all the data, and collaborating with patient's care team: 55 minutes. Charges/Coding Visit Charges Inpatient E&M: 23249 Init Hosp L2 12/18/22 1638 <Electronically signed by Edwin Kaplan DO> Cosigner Signature (if applicable): CC: Dr. Edwin Kaplan DO; Dr. Mayda Garcia MD~ Signed [facility] Work Phone: 1([phone]) 846-261508-17-2023 Discharge summary Author Jossue Boyd [facility] December 18, 2022 8:57am Note Date/Time December 18, 2022 5: 38am [facility] Medical Records Department [address] [place] [address] Emergency Department Summary 12/18/22 MR#: [id number] Acct: [id number] Name: LACY ALVARADO Rep #:[id number] 2 : 1950 72 From: Turner Armendariz [...] surgery. No history of PE or DVT. [facility] Medical History (Updated 12/18/22 @ 06:[address] Turner Armendariz, DO) Abdominal pain Acute back pain Anemia Arthritis Atherosclerotic heart disease of [place] coronary artery without angina pectoris Cardiology follow-up [...] mg/mL subcutaneous syringe (Prolia) 60 mg subcut [id number] #1 mL 12/11/22 [Rx Last Taken Unknown] [...] coronary artery disease. Patient placed on a front desk monitor. EKG obtained on arrival shows sinus [...] 43.9 L Lymph % (Auto) 45.0 H [place] % (Auto) 8.1 Eos % (Auto) 2.4 [...] Prolia 60 mg/mL syringe 60 mg subcut [id number] Qty: 1 2RF Primary Care Provider: Mayda Garcia Referrals: Mayda Garcia MD [Primary Care Provider] - What to do if you have Problems For any increased pain, shortness of breath, bleeding, nausea or vomiting, chestpain, or any unexpected problems, contact your Primary Care Provider. Call [facility] ([phone]) or report to the closest Emergency Room. [...] cc: Dr. Mayda Garcia MD ~* Signed [facility] Work Phone: 1(383) 619-392908-17-2023 Discharge summary Author Jossue Boyd [facility] December 18, 2022 8:57am Note Date/Time December 18, 2022 5: 38am [facility] Medical Records Department [address] [place] [address] Emergency Department Summary 12/18/22 MR#: [id number] Acct: [id number] Name: LACY ALVARADO Rep #:[id number] 2 : 1950 72 From: Turner Armendariz [...] surgery. No history of PE or DVT. [facility] Medical History (Updated 12/18/22 @ 06:[address] Turner Armendariz, DO) Abdominal pain Acute back pain Anemia Arthritis Atherosclerotic heart disease of [place] coronary artery without angina pectoris Cardiology follow-up [...] mg/mL subcutaneous syringe (Prolia) 60 mg subcut [id number] #1 mL 12/11/22 [Rx Last Taken Unknown] [...] coronary artery disease. Patient placed on a front desk monitor. EKG obtained on arrival shows sinus [...] 43.9 L Lymph % (Auto) 45.0 H [place] % (Auto) 8.1 Eos % (Auto) 2.4 Baso % (Auto) 0.4 Absolute Neuts (auto) 2.2 Absolute Lymphs (auto) 2.22 Nucleated RBC % 0 D-Dimer Quant (PE/DVT) 0.31 Radiography Diagnostic Testing: Clinical Impression(s) from Imaging Studies Chest X-Ray 12/18/22 05:36 IMPRESSION: No radiographic evidence of acute cardiopulmonary disease. Electronically Signed: Flor Flynn MD at 6:39 EDT Reading Location ID and State: [facility] / [place] Tel , Service support , 1 view [...] Prolia 60 mg/mL syringe 60 mg subcut [id number] Qty: 1 2RF Primary Care Provider: Mayda Garcia Referrals: Mayda Garcia MD [Primary Care Provider] - What to do if you have Problems For any increased pain, shortness of breath, bleeding, nausea or vomiting, chestpain, or any unexpected problems, contact your Primary Care Provider. Call [facility] ([phone]) or report to the closest Emergency Room. [...] cc: Dr. Mayda Garcia MD ~* Signed [facility] Work Phone: 1(584) 228-746204-13-[address] Freeman [facility] August 14, 2022 1:07am Note Date/Time August 13, 2022 10: 30pm [facility] Medical Records Department [address] [place] [address] Emergency Department Summary 08/13/22 MR#: [id number] Acct: [id number] Name: LACY ALVARADO Rep #:[id number] 9 : 1950 71 From: Tin Freeman [...] in the past. 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 She complains of headache, and states that she does not usually have a headacheafter seizure. No fever, chills. [facility] Medical History Abdominal pain Acute back pain Anemia Arthritis Atherosclerotic heart disease of [place] coronary artery without angina pectoris Cardiology follow-up [...] mg/mL subcutaneous syringe (Prolia) 60 mg subcut [id number] #1 mL 05/20/22 [Rx Last Taken Unknown] [...] 45.6 L Lymph % (Auto) 44.1 H [place] % (Auto) 7.4 Eos % (Auto) 2.1 [...] Prolia 60 mg/mL syringe 60 mg subcut [id number] Qty: 1 0RF atorvastatin 80 mg tablet [...] your Primary Care Provider. Call [facility] ([phone]) or report to the closest Emergency Room. Call 911 if necessary. 08/14/22 010 <Electronically signed by Tin Freeman DO> Cosigner Signature (if applicable): CC: Dr. Mayda Garcia MD ~ Signed [facility] Work Phone: 1(473) 246-131102-04-[address] Patel [facility] June 07, 2022 6:15pm Note Date/Time June 07, 2022 6 :12pm [facility] Medical Records Department [address] [place] [address] Emergency Department Summary 06/07/22 MR#: [id number] Acct: [id number] Name: LACY ALVARADO Rep #:[id number] 2 : 1950 71 From: Ezekiel Patel [...] Immunization: 5-10 years Recent Illness/Hospitalization: Yes PFSH [facility] Medical History Abdominal pain Acute back pain Anemia Arthritis Atherosclerotic heart disease of [place] coronary artery without angina pectoris Cardiology follow-up [...] mg/mL subcutaneous syringe (Prolia) 60 mg subcut [id number] #1 mL 05/20/22 [Rx Last Taken Unknown] [...] II-XII intact bilaterally and moves all extremities [place] Coma Scale: document GCS findings Spontaneous Oriented [...] Prolia 60 mg/mL syringe 60 mg subcut [id number] Qty: 1 0RF Primary Care Provider: Mayda [...] your Primary Care Provider. Call [facility] ([phone]) or report to the closest Emergency Room. Call 911 if necessary. 06/07/221814 <Electronically signed by Ezekiel Patel MD> Cosigner Signature (if applicable): CC: Dr. Mayda Garcia MD ~ Signed [facility] Work Phone: 1(891) 330-131302-04-2023 Hospital Discharge instructions Additional Instructions Apply ice to your left chest wall and shoulder 6-10 times a dayWooLanc[facility] Work Phone: Discharge summary Author Edwin gerber [facility] December 19, 2022 4:23pm Note Date/Time December 19, 2022 3: 41pm [facility] Medical Records Department [address] [place] [address] Discharge Summary 12/19/22 1541 MR#: [id number] Acct: [id number] Name: LACY ALVARADO Rep #:[id number] 6 : 1950 72 From: Edwin Mo hugh SINGH PCP: Dr. Mayda Garcia MD Status:A DM DELFIN Location: [place] [address] Providers Date of Admission: 12/18/22 Date of [...] mg/mL subcutaneous syringe (Prolia) 60 mg subcut [id number] #1 mL 12/11/22 pantoprazole 40 mg tablet,delayed [...] Plavix (follows w/ Dr. Johnson), hypertension, seizures, jti-zeipryv-mjemfkssg type 2 diabetes and GERD who presented to the [facility] ED on 12/18 with chest pain. She [...] for an outpatient appointment with them in [place] early next week. She tolerated the catheterization well and was stable afterwards. A transthoracic echocardiogram was done post catheterization, read was pending on discharge. She was discharged home in stable condition. Discharge diagnoses: Chest pain, improved CAD s/p stenting Hypertension Seizures Xbz-copladt-sctnguvpi type 2 diabetes GERD PCP follow-up: Patient will be following up with cardiothoracic surgery in [facility] discuss options for intervention on her [...] Follow-up with the cardiothoracic surgery team at [place] as discussed. Discharge Orders/Prescriptions Prescriptions: New isosorbide [...] Prolia 60 mg/mL syringe 60 mg subcut [id number] Qty: 1 2RF Discontinued isosorbide mononitrate 30 [...] Self Care Charges/Coding Visit Charges Inpatient E&M: 08464 Disch Hosp >30min 12/19/22 1623 <Electronically signed by Edwin Kaplan DO> Cosigner Signature (if applicable): CC: Dr. Edwin Kaplan DO; Dr. Mayda Garcia MD~ Signed [facility] Work Phone: Evaluation note* Diagnosis Onset Date Resolution Status Osteoporosis acute Cerebrovascular disease tree topper shaun Epilepsy, unspecified, not i ntractable, without status epilepticus chronic Occipital neuralgia chronic Cerebrovascular disease tree topper shaun Epilepsy, unspecified, not i ntractable, without status epilepticus chronic Occipital neuralgia chronic [facility] Work Phone: Evaluation note* Diagnosis Onset Date Resolution Status Cerebrovascular disease tree topper shaun Epilepsy, unspecified, not i ntractable, without status epilepticus chronic Occipital neuralgia chronic BMI 32.0-32.9,adult acute LINA (obstructive sleep apnea) chronic Health care maintenance acut e Right shoulder pain acute Essential (primary) hypertension chronic Seizures chronic Type 2 diabetes mellitus chr onic [facility] Work Phone: Evaluation note* Diagnosis Onset Date Resolution Status Cerebrovascular disease tree topper shaun Epilepsy, unspecified, not i ntractable, without status epilepticus chronic Occipital neuralgia chronic BMI 32.0-32.9,adult acute LINA (obstructive sleep apnea) chronic Health care maintenance acut e Right shoulder pain acute Essential (primary) hypertension chronic Seizures chronic Type 2 diabetes mellitus chr onic Cough acute Chest pain acute Intractable pain acute Neck pain acute [facility] Work Phone: Evaluation note* Diagnosis Onset Date Resolution Status Cerebrovascular disease tree topper shaun Epilepsy, unspecified, not i ntractable, without [...] stent placement March 222017 chronic Hyperlipidemia chronic [facility] Work Phone: Evaluation note* Diagnosis Onset [...] stent placement March 222017 chronic Hyperlipidemia chronic [facility] Work Phone: Evaluation note* Diagnosis Onset Date Resolution Status Cough acute Chest pain acute Intractable pain acute Neck pain acute Cervical radiculopathy acute Left shoulder pain acute Neck pain acute Left upper extremity numbness acute Essential (primary) hypertension chronic History of coronary artery stent placement March 222017 chronic Hyperlipidemia chronic Obesity acute LINA (obstructive sleep apnea) chronic [facility] Work Phone: Evaluation note* Diagnosis Onset Date Resolution Status Obesity acute LINA (obstructive sleep apnea) chronic Seizures chronic Exposure to COVID-19 virus a cute [facility] Work Phone: Evaluation note* Diagnosis Onset Date Resolution Status Exposure to COVID-19 virus a cute Pain in left upper arm acute Essential (primary) hypertension chronic Seizures chronic Type 2 diabetes mellitus chr onic Osteoporosis acute [facility] Work Phone: Evaluation note* Diagnosis Onset [...] chronic Type 2 diabetes mellitus chr onic [facility] Work Phone: Evaluation note* Diagnosis Onset Date Resolution Status Memory changes acute Epilepsy, unspecified, not i ntractable, without status epilepticus chronic Memory loss acute Epilepsy, unspecified, not i ntractable, without status epilepticus chronic Right hip pain acute Essential (primary) hypertension chronic Type 2 diabetes mellitus chr onic Osteoarthritis of right knee noneactive [facility] Work Phone: Evaluation note* Diagnosis Onset [...] disease acute History of hypertension acut e [facility] Work Phone: Evaluation note* Diagnosis Onset [...] stent placement March 222017 chronic Hyperlipidemia chronic [facility] Work Phone: Evaluation note* Diagnosis Onset [...] stent placement March 222017 chronic Hyperlipidemia chronic [facility] Work Phone: Evaluation note* Diagnosis Coronary artery disease due to calcified coronary lesion- Primary Atherosclerotic heart disease of [place] coronary artery without angina pectoris [facility] Diagnosis CAD in [place] artery- Primary Preoperative clearance Unspecified pre-operative examination Atherosclerotic heart disease of [place] coronary artery without angina pectoris [facility] Diagnosis Preoperative clearance Unspecified pre-operative examination Atherosclerotic heart disease of [place] coronary artery without angina pectoris [facility] Diagnosis Coronary artery disease due to calcified coronary lesion- Primary [facility] Diagnosis CAD in [place] artery- Primary CAD in [place] artery Coronary artery disease involving coronary bypass graft, unspecified whether angina present, unspecified whether [place] or transplanted heart S/P CABG (coronary artery bypass graft) Postsurgical aortocoronary bypass status [facility] Diagnosis Onset Date Resolution [...] arthritis acute Stroke acute Hyperlipidemia chronic Hypertension [facility] Work Phone: Evaluation note* Diagnosis S/P CABG (coronary artery bypass graft)- Primary Postsurgical aortocoronary bypass status [facility] Diagnosis Onset Date Resolution Status [...] Tachycardia acute Essential (primary) hypertension chronic Hyperlipidemia [facility] Work Phone: Evaluation note* Diagnosis Onset [...] artery bypass graft chronic Hyperlipidemia chronic Hypertension [facility] Work Phone: Evaluation note* Diagnosis Onset [...] Fatigue acute Osteoarthritis of right knee noneactive [facility] Work Phone: Evaluation note* Diagnosis Onset [...] graft chronic Obesity chronic Obstructive sleep apnea tree topper shaun Chest wall tenderness chroni c Coronary artery disease tree topper shaun Essential (primary) hypertension chronic GERD (gastroesophageal reflux disease) chronic Osteoporosis chronic Rheumatoid arthritis chronic Type 2 diabetes mellitus chr onic [facility] Work Phone: Evaluation note* Diagnosis Onset Date Resolution Status Fatigue acute Fatigue acute Osteoarthritis of right knee noneactive History of coronary artery bypass graft chronic Obesity chronic Obstructive sleep apnea tree topper shaun Chest wall tenderness chroni c Coronary artery disease tree topper shaun Essential (primary) hypertension chronic GERD (gastroesophageal reflux disease) chronic Osteoporosis chronic Rheumatoid arthritis chronic Type 2 diabetes mellitus chr onic Fatigue acute Abdominal pain chronic [facility] Work Phone: Evaluation note* Diagnosis Onset Date Resolution Status Fatigue acute Fatigue acute Osteoarthritis of right knee noneactive History of coronary artery bypass graft chronic Obesity chronic Obstructive sleep apnea tree topper shaun Chest wall tenderness chroni c Coronary artery disease tree topper shaun Essential (primary) hypertension chronic GERD (gastroesophageal reflux disease) chronic Osteoporosis chronic Rheumatoid arthritis chronic Type 2 diabetes mellitus chr onic Fatigue acute Abdominal pain chronic Abdominal pain chronic [facility] Work Phone: Evaluation note* Diagnosis Onset Date Resolution Status Fatigue acute Osteoarthritis of right knee noneactive History of coronary artery bypass graft chronic Obesity chronic Obstructive sleep apnea tree topper shaun Chest wall tenderness chroni c Coronary artery disease tree topper shaun Essential (primary) hypertension chronic GERD (gastroesophageal reflux disease) chronic Osteoporosis chronic Rheumatoid arthritis chronic Type 2 diabetes mellitus chr onic Fatigue acute Abdominal pain chronic Abdominal pain chronic [facility] Work Phone: Evaluation note* Diagnosis Onset Date Resolution Status Fatigue acute Osteoarthritis of right knee noneactive History of coronary artery bypass graft chronic Obesity chronic Obstructive sleep apnea tree topper shaun Chest wall tenderness chroni c Coronary artery disease tree topper shaun Essential (primary) hypertension chronic GERD (gastroesophageal reflux disease) chronic Osteoporosis chronic Rheumatoid arthritis chronic Type 2 diabetes mellitus chr onic Fatigue acute Abdominal pain chronic Abdominal pain chronic Osteoporosis chronic [facility] Work Phone: Hospital Discharge instructions Additional Instructions Discharge home 01/26/2023, pending appeal, [facility] PT/OT/SN, Front wheeled walker, bedside commode.[facility] Work Phone: Hospital Discharge instructions Additional Instructions EKG normal cardiac workup negative. Chest CT discussed with radiologist no concern for fracture. Follow-up with your doctor. Take medications as prescribed.[facility] Work Phone: Hospital Discharge instructions Additional Instructions Ice to your chest wall to decrease pain and bruising. The doctors saw you yesterday wrote for a narcotic pain medication which she can filler picker from the pharmacy and use. Pain. Follow-up with your doctor if not improving.[facility] Work Phone: Reason for referral (narrative)No reason for referral information [facility] Work Phone: Summary Purpose Family [...] No October 25, 2021 2:03pm Power of Agricultural Extension Officer No October 25 2 2:03pm Advance Directive Response Recorded Date/ Time Name of Medical Power of Agricultural Extension Officer bhupinder barakat November 28, 2021 7:50pm Advance Directives No September 26 1 1:14pm Living Will Yes November 28, 2021 7:50pm Power of Agricultural Extension Officer Yes November 28 2 7:50pm Advance Directive Response Recorded Date/ Time Name of Medical Power of Agricultural Extension Officer bhupinder barakat November 28, 2021 7:50pm Advance Directives No September 26 1:14pm Living Will No December 17 3:55am Power of Agricultural Extension Officer No December 17 3:55am Advance Directive Response Recorded Date/ Time Name of Medical Power of Agricultural Extension Officer bhupinder barakat November 28, 2021 7:50pm Name of Medical Power of Agricultural Extension Officer bhupinder barakat January 02, 2022 12:50pm Advance Directives No September 26 1:14pm Living Will Yes January 02 12:50pm Power of Agricultural Extension Officer Yes January 02, 2022 12:50pm Advance Directive Response Recorded Date/ Time Name of Medical Power of Agricultural Extension Officer bhupinder barakat November 28, 2021 6:50pm Name of Medical Power of Agricultural Extension Officer bhupinder barakat January 02, 2022 11:50am Advance Directives No September 26 12:14pm Living Will No March 14 5:43pm Power of Agricultural Extension Officer No March 14, 2022 5:43pm Advance Directive Response Recorded Date/ Time Name of Medical Power of Agricultural Extension Officer bhupinder barakat January 02, 2022 11:50am Advance Directives No September 26 12:14pm Living Will No March 29 10:41am Power of Agricultural Extension Officer No March 29, 2022 10:41am Advance Directive Response Recorded Date/ Time Advance Directives No September 26 12:14pm Living Will No March 29 10:41am Power of Agricultural Extension Officer No March 29, 2022 10:41am Advance Directive Response Recorded Date/ Time Name of Medical Power of Agricultural Extension Officer BHUPINDER MARTÍNEZ June 06, 2022 10:51am Advance Directives No September 26 12:14pm Living Will No June 07 6:10pm Power of Agricultural Extension Officer No June 07, 2022 6:10pm Advance Directive Response Recorded Date/ Time Name of Medical Power of Agricultural Extension Officer BHUPINDER MARTÍNEZ June 06, 2022 11:51am Name of Medical Power of Agricultural Extension Officer Duke Barakat August 13, 2022 10:00pm Advance Directives No September 26 1:14pm Living Will Yes August 13, 2022 10:00pm Power of Agricultural Extension Officer Yes August 13 10:00pm Advance Directive Response Recorded Date/ Time Name of Medical Power of Agricultural Extension Officer Duke Barakat August 13, 2022 10:00pm Advance Directives No September 26 1:14pm Living Will Yes August 13, 2022 10:00pm Power of Agricultural Extension Officer Yes August 13 10:00pm Advance Directive Response Recorded Date/ Time Name of Medical Power of Agricultural Extension Officer Duke Barakat August 13, 2022 10:00pm Advance Directives No December 31, 2020 12:33pm Living Will Yes August 13, 2022 10:00pm Power of Agricultural Extension Officer Yes August 13 10:00pm Advance Directive Response Recorded Date/ Time Name of Medical Power of Agricultural Extension Officer BHUPINDER SENIOR December 18, 2022 5:26am Advance Directives No December 31, 2020 12:33pm Living Will Yes December 18 5:26am Power of Agricultural Extension Officer Yes December 18, 023 5:26am Advance Directive Response Recorded Date/ Time Name of Medical Power of Agricultural Extension Officer BHUPINDER SENIOR December 18, 2022 5:26am Advance Directives No December 31, 2020 12:33pm Living Will Yes December 18 10:41am Power of Agricultural Extension Officer No December 18, 2 023 10:41am Latest Code Status on File Code Status Date Activated Date Inactivated Comments Full Code 01/01/2023 5:45 AM Latest Code Status on File Code Status Date Activated Date Inactivated Comments Full Code 01/01/2023 5:45 AM 01/11/2023 4:53 PM Healthcare Agents on File Name Relationship Healthcare Agent Relationshi p Communication Bhupinder Gomez [facility] Care Agent Advance Directive Response Recorded Date/ Time Name of Medical Power of Agricultural Extension Officer BHUPINDER SENIOR December 18, 2022 5:26am Name of Medical Power of Agricultural Extension Officer Bhupinder Starkeyyvette iece January 13, 2023 2:24pm Advance Directives No December 31, 2020 12:33pm Living Will Yes January 13, 2023 2:24pm Power of Agricultural Extension Officer Yes January 2:24pm Documents on File Type Date Recorded 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 Advance Directives and Livin g Will 01/12/2023 1:40 PM Latest Code Status on File Code Status Date Activated Date Inactivated Comments Full Code 01/01/2023 5:45 AM 01/11/2023 4:53 PM Healthcare Agents on File Name Relationship Healthcare Agent [facility] Communication Bhupinder [facility] Care Agent Advance Directive Response Recorded Date/ Time Advance Directives No February 02, 2023 11:35am Living Will Yes February 02 11:35am Power of Agricultural Extension Officer Yes February 02 11:35am Name of Medical Power of Agricultural Extension Officer BHUPINDER SENIOR December 18, 2022 5:26am Name of Medical Power of Agricultural Extension Officer Bhupinder Roblesyvette rivera iece January 13, 2023 2:24pm Advance Directive Response Recorded Date/ Time Advance Directives No February 02, 2023 10:35am Living Will Yes February 02 10:35am Power of Agricultural Extension Officer Yes February 02 10:35am Name of Medical Power of Agricultural Extension Officer BHUPINDER SENIOR December 18, 2022 4:26am Name of Medical Power of Agricultural Extension Officer Bhupinder Roblesjazlynbutch n iece January 13, 2023 1:24pm Advance Directive Response Recorded Date/ Time Advance Directives No February 02, 2023 10:35am Living Will Yes February 02 10:35am Power of Agricultural Extension Officer Yes February 02 10:35am Advance Directive Response Recorded Date/ Time Advance Directives on File No 2023 9:39am Advance Directives No February 02, 2023 10:35am Living Will Yes June 01 9:57am Power of Agricultural Extension Officer Yes June 01, 2023 9:39am Advance Directive Response Recorded Date/ Time Advance Directives on File No 2023 10:39am Advance Directives No February 02, 2023 11:35am Living Will Yes June 01 10:57am Power of Agricultural Extension Officer Yes June 01, 2023 10:39am Advance Directive Response Recorded Date/ Time Living Will Yes February 02 11:35am Power of Agricultural Extension Officer Yes February 02 11:35am Living Will Yes November 15, 2023 3:30pm Power of Agricultural Extension Officer No November 14 3:30pm Living Will No July 14, 2024 5:08pm Power of Agricultural Extension Officer No July 14 5:08pm Advance Directives No February 02, 2023 11:35am Advance Directive Response Recorded Date/ Time Living Will Yes February 02 11:35am Power of Agricultural Extension Officer Yes February 02 11:35am Living Will Yes November 15, 2023 3:30pm Power of Agricultural Extension Officer No November 14 3:30pm Living Will No July 14, 2024 5:08pm Power of Agricultural Extension Officer No July 14 5:08pm Living Will No July 15, 2024 1:25pm Power of Agricultural Extension Officer No July 15 1:25pm Advance Directives No February 02, 2023 11:35am Advance Directive Response Recorded Date/ Time Living Will Yes November 15, 2023 3:30pm Do you have a Healthcare Power of Agricultural Extension Officer? No November 15, 2023 3:30pm Living Will No July 14, 2024 5:08pm Do you have a Healthcare Power of Agricultural Extension Officer? No July 14, 2024 5:08pm Living Will No July 15, 2024 1:25pm Do you have a Healthcare Power of Agricultural Extension Officer? No July 15, 2024 1:25pm Do you have a Healthcare Power of Agricultural Extension Officer? No September 16, 2024 3:51pm Advance Directives No February 02, 2023 11:35am Advance Directive Response Recorded Date/ Time Living Will No July 14, 2024 5:08pm Do you have a Healthcare Power of Agricultural Extension Officer? No July 14, 2024 5:08pm Living Will No July 15, 2024 1:25pm Do you have a Healthcare Power of Agricultural Extension Officer? No July 15, 2024 1:25pm Do you have a Healthcare Power of Agricultural Extension Officer? No September 16, 2024 3:51pm Advance Directives [...] ARM RT ARM PAIN SCREENING general illness [facility] ER FU CHEST PAIN CHEST [...] ARM RT ARM PAIN SCREENING general illness [facility] ER FU CHEST PAIN CHEST PAIN CHEST PAIN CHEST PAIN [facility] FU 1 Y FU Reason [...] ARM RT ARM PAIN SCREENING general illness [facility] ER FU CHEST PAIN CHEST PAIN CHEST PAIN CHEST PAIN CHEST PAIN [facility] FU 1 Y FU CERVICAL [...] ARM RT ARM PAIN SCREENING general illness [facility] ER FU CHEST PAIN CHEST PAIN CHEST PAIN CHEST PAIN CHEST PAIN [facility] FU 1 Y FU CERVICAL RADICULOPATHY. RX HERE 4 M FU SEIZURE Reason for Visit Cough Chest pain Intractable pain Neck pain Cervical radiculopathy Left shoulder pain Neck pain Left upper extremity numbness Essential (primary) hypertension History of coronary artery stent placement Hyperlipidemia Obesity LINA (obstructive sleep apnea) Chief Complaint RT ARM PAIN SCREENING general illness [facility] ER FU CHEST PAIN CHEST PAIN CHEST PAIN CHEST PAIN CHEST PAIN [facility] FU 1 Y FU CERVICAL RADICULOPATHY. RX HERE 4 M FU SEIZURE FALL Reason for Visit Cough Chest pain Intractable pain Neck pain Cervical radiculopathy Left shoulder pain Neck pain Left upper extremity numbness Essential (primary) hypertension History of coronary artery stent placement Hyperlipidemia Obesity LINA (obstructive sleep apnea) Chief Complaint CERVICAL RADICULOPAT HY. RX HERE 4 M FU SEIZURE FALL [facility] ER FU Wants Covid Test LABSPEC Reason for Visit Obesity LINA (obstructive sleep apnea) Seizures Exposure to COVID-19 virus Chief Complaint CERVICAL RADICULOPAT HY. 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 DATE CREATED AUTHOR AUTHOR'S ORGANIZ ATION 06/21/2018 [facility] DATE CREATED AUTHOR AUTHOR'S ORGANIZ ATION 01/07/2023 [facility] DATE CREATED AUTHOR AUTHOR'S ORGANIZ ATION 11/11/2024 [facility] Goals (unrecognized section and content) Goals [...] Garcia MD Primary Care Provider Active Dr. Eezkiel Patel MD Emergency Provider Active Team Status: [...] Primary Care Provider, Refer ring Provider Active cM LÓPEZ, RENE Attending Provider Active Team Status: [...] Dr. Bhanu Milian MD Other Provider Active Capital Markets Specialist Relationship Specialty Start Date End Date Noris Garciarosemary Raza [address] [id number] PCP - General Internal Medicine 12/23/22 Capital Markets Specialist Relationship Specialty Start Date End Date Noris Garciarosemary Raza [address] [id number] PCP - General Internal Medicine 12/23/22 Capital Markets Specialist Relationship Specialty Start Date End Date Noris Garciarosemary Raza [address] [place] [address] PCP - General Internal Medicine 12/23/22 Capital Markets Specialist Relationship Specialty Start Date End Date Mayda Garcia [address] [place] [address] PCP - General Internal Medicine 12/23/22 Capital Markets Specialist Relationship Specialty Start Date End Date Mayda Garcia [address] [place] [address] PCP - General Internal Medicine 12/23/22 Capital Markets Specialist Relationship Specialty Start Date End Date Mayda Garcia [address] [place] [address] PCP - General Internal Medicine 12/23/22 Team Status: Inactive Member Role Status Dates Dr. Mayda Garcia MD Primary Care Provider Active Dr. Robbin Carlos MD Admit Provider, Attending Provid er Active Capital Markets Specialist Relationship Specialty Start Date End Date Mayda Garcia [address] [place] [address] PCP - General Internal Medicine 12/23/22 Team Status: Inactive Member Role Status Dates Dr. Mayda Garcia MD Primary Care Provider Active Dr. Pepe Ruiz MD Attending Provider, Referring Provider Active Team Status: Inactive Member Role Status Dates Dr. Mayda Garcia MD Primary Care Provider, Refer ring Provider Active Carlos Bravo PRODUCTIVITY ENGINEER, PRODUCTIVITY ENGINEER-C Attending Provider Active Team Status: Inactive Member Role Status Dates Dr. Mayda Garcia MD Primary Care Provider Active Carlos Bravo PRODUCTIVITY ENGINEER, PRODUCTIVITY ENGINEER-C Attending Provider, Referring Pro vider Active Team Status: Active Member Role Status Dates Dr. Mayda Garcia MD Primary Care Provider Active Dr. Winston Johnson MD Attending Provider Active Team Status: Inactive Member Role Status Dates Dr. Mayda Garcia MD Primary Care Provider, Refer ring Provider Active Vanita Venegas PRODUCTIVITY ENGINEER, PRODUCTIVITY ENGINEER-C Attending Provider Active Team Status: Active Member Role Status Dates Dr. Mayda Garcia MD Primary Care Provider Active Dr. iWnston Johnson MD Attending Provider, Referring Pro vider Active Team Status: Inactive Member Role Status Dates Dr. Mayda Garcia MD Primary Care Provider Active Vanita Venegas PRODUCTIVITY ENGINEER, PRODUCTIVITY ENGINEER-C Attending Provider, Referrin g Provider Active Team [...] MD Primary Care Provider Active Vanita Venegas PRODUCTIVITY ENGINEER, PRODUCTIVITY ENGINEER-C Attending Provider, Referrin g Provider Active Team [...] 2024 End: April 20, 2024 Vanita Venegas PRODUCTIVITY ENGINEER, PRODUCTIVITY ENGINEER-C Attending Provider Active Start: April 20, 2024 End: April 20, 2024 Vanita Venegas PRODUCTIVITY ENGINEER, PRODUCTIVITY ENGINEER-C Referring Provider Active Start: April 20, 2024 [...] Active Start: April 25, 2024 Vanita Venegas PRODUCTIVITY ENGINEER, PRODUCTIVITY ENGINEER-C Referring Provider Active Start: April 25, 2024 Vanita Venegas PRODUCTIVITY ENGINEER, PRODUCTIVITY ENGINEER-C Other Provider Active Start: April 25, 2024 [...] 2024 End: September 28, 2024 Vanita Venegas PRODUCTIVITY ENGINEER, PRODUCTIVITY ENGINEER-C Attending Provider Active Start: September 28, 2024 End: September 28, 2024 Team Status: Inactive Member Role Status Dates Dr. Mayda Garcia MD Primary Care Provider Active Start: October 03, 2024 End: October 03, 2024 Dr. aMyda Garcia MD Referring Provider Active Start: October 03, 2024 End: October 03, 2024 Dr. Pepe Ruiz MD Attending Provider Active Start: October 03, 2024 End: October 03, 2024 Team Status: Inactive Member Role Status Dates Dr. Mayda Garcia MD Primary Care Provider Active Start: October 20, 2024 End: October 20, 2024 Vanita Venegas PRODUCTIVITY ENGINEER, PRODUCTIVITY ENGINEER-C Attending Provider Active Start: October 20, 2024 End: October 20, 2024 Vanita Venegas PRODUCTIVITY ENGINEER, PRODUCTIVITY ENGINEER-C Referring Provider Active Start: October 20, 2024 [...] End: September 28, 2024 Vanita Venegas NP, PRODUCTIVITY ENGINEER-C Attending Provider Active Start: September 28, 2024 [...] 2024 End: October 20, 2024 Vanita Venegas PRODUCTIVITY ENGINEER, PRODUCTIVITY ENGINEER-C Attending Provider Active Start: October 20, 2024 End: October 20, 2024 Vanita Venegas NP, PRODUCTIVITY ENGINEER-C Referring Provider Active Start: October 20, 2024 [...] To Contact Diagnoses 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 [facility]. provides no warranty or guarantee of the accuracy or completeness of information in this document.
[2024-11-13 21:42] LABS: Pro- Brain NATRIURETIC PEPTIDE 77 pg/mL (<=900)
[2024-11-13] MEDS: Neomycin/Polymyxin/Dexameth OINT 3.5GM OPTH.TUBE 1 APPLIC OPHTHALMIC (22:57)
[2024-11-13] MEDS: MELATONIN 3 MG TABLET PO (22:58)
[2024-11-14] VITALS (12 sets, daily range): BP systolic 60–165; BP diastolic 40–82; PULSE 73–85; RESP 12–18; TEMP 36.1–36.7; O2SAT 96–100
--- NOTE | 2024-11-14 00:50 | EKG12_ITS ---
Test Reason : CP Blood Pressure : */* mmHG Vent. Rate : 76 BPM Atrial Rate : 76 BPM P-R Int : 148 ms QRS Dur : 72 ms QT Int : 408 ms P-R-T Axes : 68 22 54 degrees QTcB Int : 459 ms Normal sinus rhythm MINOR T CHANGES Borderline When compared with ECG of 13-Nov-2024 20:00, MANUAL COMPARISON REQUIRED DATA IS UNCONFIRMED Confirmed by Aleksandr Salinas ([id number]), movie editor ADIA ARDON ([id number]) on 11/15/2024 11:19:32 AM Referred By: Confirmed By: Aleksandr Salinas
[2024-11-14] MEDS: Nitroglycerin (INPATIENT USE) 0.4 MG TAB.SUBL SL ×2 (01:32→01:44)
[2024-11-14 05:57] LABS: Red Blood Count 3.54 M/mm3 (4.2-5.4); White Blood Count 5.6 K/mm3 (4.4-11.0)
[2024-11-14 05:58] LABS: Hematocrit 34.3 % (37-47); Hemoglobin 11.5 g/dL (12.0-15.0); Mean Corp Hgb Conc 33.5 g/dL (32-36); Mean Corpuscular Volume 96.9 fL (81-99); Mean Platelet Vol. 10.9 fl (6.2-12.0); Platelet Count 211 K/mm3 (150-450); RBC Distribution Width CV 14.1 % (11.6-14.6); RBC Distribution Width SD 50.5 fl (35.1-43.9)
[2024-11-14 06:16] LABS: Anion Gap 11 (5-15); BUN 20 mg/dL (4-19); BUN/Creat Ratio 17.6 RATIO (10-20); Calcium,Total 8.8 mg/dL (7.6-11.0); Carbon Dioxide 26.0 mmol/L (21.0-32.0); Chloride 104 mmol/L (98-108); Cholesterol 230 mg/dL (<=200); Estimated Creatinine Clearance 44.72 ml/min (50-250); Glucose 111 mg/dL (70-99); Low Density Lipoprotein Calc. 162 mg/dL; Potassium 4.4 mmol/L (3.3-5.1); Triglycerides 85 mg/dL; Very Low Density Lipoprotein 17 mg/dL (5-40); cholesterol:hdl ratio screen 4.47
--- NOTE | 2024-11-14 08:01 | CON.PCM.CA_ITS ---
Assessment & Plan Assessment/Plan (1) Chest pain: QUALIFIERS: Chest pain type: unspecified Qualified Code(s): R07.9 - Chest pain, unspecified PLAN: Patient's chest discomfort been ongoing since at least September 2024. And potentially ever since her surgery. The patient came in yesterday because it was more intense and had been. 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 Troponin enzymes were 01/19/10. ECG showed no acute ischemic changes. I do not feel that this represents an acute coronary syndrome. But I would recommend that we proceed with pharmacologic nuclear stress testing. The patient is not able to walk adequately to do a adequate treadmill stress test. (2) Type 2 diabetes mellitus: QUALIFIERS: Diabetes mellitus ferry terminal supervisor insulin use: without ferry terminal supervisor use Diabetes mellitus complication status: with other specified complication Qualified Code(s): E11.69 - Type 2 diabetes mellitus with other specified complication PLAN: Hemoglobin A 1 6 was 6.6. This is managed through the primary service. (3) History of coronary artery bypass graft: PLAN: Patient status post remote GARCIA to the LAD, vein graft to the OM branch of the circumflex vein graft to diagonal branch of the LAD and vein graft to the PDA of the right coronary artery December 2022 at [facility] by Dr. Rose. The patient spent 10 days in recovery and extended care facility due to her ongoing rheumatoid arthritis and pain syndromes. (4) Essential (primary) hypertension: PLAN: Patient's blood pressures controlled in the hospital this morning. She should continue her current medical therapy. (5) Hyperlipidemia: QUALIFIERS: Hyperlipidemia type: pure hypercholesterolemia Q ualified Code(s): E78.00 - Pure hypercholesterolemia, unspecified; E78.0 - Pure hypercholesterolemia PLAN: Patient's lipids total cholesterol was 230 triglycerides 85 LDL 162 and HDL 52. The patient is on atorvastatin 80 mg daily. PLAN: Plan 1. Will obtain pharmacologic nuclear stress test to rule out ischemia. 2. Will defer further pain management and treatment of her rheumatoid to the primary service and her primary care physicians. HPI Consult Data Date of Consult: 11/14/24 HPI Narrative Reason for Consultation: Chest pain HPI Narrative: NERY ALVARADO, is a 73 F who presents with a sharp left-sided chest pain that radiated around to the left side of her chest and into her arm. She says this reminds her of what she had prior to her bypass graft surgery. However this has been ongoing since early September 2024 was just much more intense yesterday after mandaeism when she was sitting at home. Patient has been evaluated in September in the emergency department with negative enzymes. She has been evaluated in the [facility] office and felt this was related to her surgical incision site and GARCIA harvest. Patient's initial enzymes in the emergency department yesterday was 9 delta was 18 and the third set was down to 10. The patient is diabetic she does have hyperlipidemia her proBNP was 77 which was negative and her ECG showed normal sinus rhythm was within normal limits and no change on the delta ECG in 24 hours. Patient's bypass graft surgery was done December 2022. She received a GARCIA to the LAD vein graft to the OM branch of the circumflex a vein graft to the first diagonal branch and a vein graft to the PDA of the right coronary artery. Subsequently the patient has had problems with her surgical incision site and is seeing dermatology due to keloid formation and pain. The patient was evaluated September 16 was found to have negative troponins in the emergency department and normal BNP. This was felt to be related to postoperative changes. The current presenting complaint is very similar. The patient has a history of recurring pains she has been on oxycodone, gabapentin, hydrocodone, ibuprofen, and hydroxychloroquine for her rheumatoid arthritis. [facility] Medical History Keloid scar of skin Vertigo Chest pain Dyspnea on exertion Wears partial dentures Injury of head and neck Gastric reflux Encounter for transesophageal echo performed as part of open chest procedure History of echocardiogram History of stress test Tremor Retained suture Chest wall tenderness Fatigue Flu vaccine need Lower extremity edema History of coronary artery disease History of hypertension Left ankle pain Right hip pain Right groin pain Memory changes Left shoulder pain Cervical radiculopathy Cough Health care maintenance Right shoulder pain Therapeutic drug monitoring Osteoporosis Compression fracture of lumbar spine, non-traumatic Dysuria Dysuria Urinary frequency Acute back pain Personal history of colonic polyps GERD (gastroesophageal reflux disease) Hyperglycemia due to type 2 diabetes mellitus Wears glasses Diabetes Arthritis Anemia Non-smoker CPAP (continuous positive airway pressure) dependence Sleep apnea Shortness of breath on exertion Cardiology follow-up encounter Abdominal pain Osteoarthritis Congestive heart failure (CHF) Routine health maintenance Colon cancer screening Foreign body in stomach Seizure disorder Type 2 diabetes mellitus Diabetes mellitus type 2 in nonobese Obesity Urinary frequency Conversion disorder Non-toxic goiter Essential (primary) hypertension RIGHT FOOT HEEL SPUR Atherosclerotic heart disease of [place] coronary artery without angina pectoris Rheumatoid arthritis Diabetes type 2, controlled Hives Seasonal allergies Hyperlipidemia Chronic diastolic CHF (congestive heart failure) Home Medications ?Medication ?Instructions ?Recorded ?Last Taken ?Type multivitamin 1 tab PO DAILY vitamin 05/2011/12/24 History blood-glucose meter (True Metrix #1 ea 02/03/20 Unknow n Rx Air Glucose Meter kit) calcium citrate 200 mg PO DAILY supplement 0 05/21/20 11/12/24 History disability placard #1 ea 06/27/20 Unknown Rx aspirin 81 mg tablet,delayed 81 mg PO DAILY heart 08/0211/13/24 History release (Adult Low Dose Aspirin) blood sugar diagnostic (True #100 ea 06/17/23 Unknown Rx Metrix Glucose Test Strip) lancets 33 gauge #100 ea 06/17/23 Unknown Rx oxycodone 5 mg tablet 5 mg PO Q4H PRN PRN Pain Sco re 11/18/23 Unknown Rx 4-10 3 days #20 tabs Handicap Placard #1 ea 01/07/24 Unknown Rx denosumab 60 mg/mL subcutaneous 60 mg subcut [id number] bone health 01/19/24 09/13/24 Rx syringe (Prolia) #1 mL gabapentin 300 mg capsule 300 mg PO QHS #30 caps 02/1311/12/24 Rx metoprolol tartrate 25 mg tablet 25 mg PO QDAY heart # 90 tabs 04/19/24 11/12/24 Rx hydrocodone-acetaminophen 5-325mg 1 tab PO Q6H PRN PRN Pain 3 days 07/14/24 Unknown Rx 5mg-325mg #10 TABLETS ibuprofen 600 mg tablet 600 mg PO Q6H PRN PRN pain # 20 07/14/24 Unknown Rx TABLETS hydroxychloroquine 200 mg tablet See Rx Instructions . Route 09/21/24 11/12/24 Rx .COMPLEX immunosuppressant #180 tabs sitagliptin phosphate 100 mg See Rx Instructions .Rout e 09/21/24 11/12/24 Rx tablet (Januvia) .COMPLEX diabetes #90 tabs atorvastatin 80 mg tablet 80 mg PO QHS cholesterol 11/12/24 History neomycin 3.5 mg/g-polymyxin B 0.5 inch ophthalmic (eye ) BID 09/28/24 11/06/24 History 10,000 unit/g-dexameth 0.1 % eye oint divalproex 500 mg tablet,delayed 500 mg .Route .COMPLE X seizures 11/07/24 11/12/24 Rx release (Depakote) #90 tabs rosuvastatin 40 mg tablet 40 mg PO DAILY 11/13/2411/01 History Allergy/AdvReac Type Severity Reaction Status Date / Time prednisone AdvReac Severe Hives Verified 11/13/24 21:59 Family History Grandmother Alcoholism Cancer Arthritis Mother Alcoholism Diabetes blood clots Hypertension Grandfather Heart disease Sister Thyroid disorder Other Breast cancer Cervical cancer Colon cancer Surgical History History of coronary artery bypass graft History of cardiac catheterization History of left heart catheterization (09/20/18) History of coronary artery stent placement (03/22/18) History of carpal tunnel surgery History of section H/O: hysterectomy Social History household members: none housing: apartment Smoking Status: Never smoker second hand exposure: No alcohol intake: current alcohol intake frequency: holidays/special occasions only substance use type: does not use what type of physical activity do you participate in: none ROS Constitutional Constitutional: Reports as per HPI Eyes Eyes: Reports systems reviewed and no addt'l complaints, except as documented ENT HEENT: Reports systems reviewed and no addt'l complaints, except as documented Cardiovascular Cardiovascular: Reports as per HPI Respiratory/Chest Respiratory/Chest: Reports as per HPI Gastrointestinal Gastrointestinal: Reports systems reviewed and no addt'l complaints, except as documented Genitourinary Genitourinary: Reports systems reviewed and no addt'l complaints, except as documented Musculoskeletal Musculoskeletal: Reports systems reviewed and no addt'l complaints, except as documented Integumentary Integumentary: Reports systems reviewed and no addt'l complaints, except as documented Neurologic Neurologic: Reports systems reviewed and no addt'l complaints, except as documented Psychiatric Psychiatric: Reports systems reviewed and no addt'l complaints, except as documented Endocrine Endocrinology: Reports systems reviewed and no addt'l complaints, except as documented Hematologic/Lymphatic Hematologic/Lymphatic: Reports systems reviewed and no addt'l complaints, except as documented Allergic/Immunologic Allergic/Immunologic: Reports systems reviewed and no addt'l complaints, except as documented Physical Exam Const alert and oriented x3 HEENT normocephalic Eyes EOMs intact bilaterally Neck no carotid bruits Chest Chest Narrative: Tenderness to palpation of the left side of the chest and midsternal area just with light touch. Chest: midline sternotomy incision Resp normal respiratory effort and clear to auscultation bilaterally Cardio Rate: regular rate Rhythm: regular rhythm Heart Sounds: S1 normal and S2 normal; Negative for click, gallop or murmur GI normal to inspection, nondistended, normoactive bowel sounds Extremity General Extremity: edema bilateral lower extremity Details: trace Neuro Neuro Narrative: Alert and oriented x 3 Psych mental status grossly normal Risk Stratification Risk Stratification Applicable: Yes Age >/= 65: Yes >/= 3 CAD Risk Factors (HTN, HLD, DM, family hx of CAD, or current smoker): Yes Aspirin Use in the Past 7 Days: Yes Severe Angina (>/= episodes in 24 hours): No EKG ST Changes >/= 0.5mm: No Positive Cardiac Marker: No DONYA Risk Stratification Score: 3 DONYA % Risk: 13% Risk Charges/Coding Visit Charges Inpatient E&M: 95636 Init Hosp L2 Objective Data Vital Signs: Vital Signs Temp Pulse Resp BP Pulse Ox O2 Del Method 97.0 F L 73 16 120/70 96 Room Air 11/14/24 03:05 11/14/24 03:05 11/14/24 03:05 11/14/24 03:05 11/14/24 03:05 11/14/24 07:30 Oxygen Delivery Method Room Air Weight: 170 lb 3.15 oz Body Mass Index (BMI) 31.1 Intake & Output: Intake and Output for Last 24 Hours 11/12/24 11/13/24 11/14/24 23:59 23:59 23:59 Intake Total 467.5 / 467.5 Balance 467.5 / 467.5 Lab / Micro Data Attestation: I reviewed the patient's lab results. 11/14/24 05:21 11/14/24 05:21 Labs: Laboratory Results - last 24 hr 11/13/24 16:05: WBC 4.6, RBC 3.41 L, Hgb 11.1 L, Hct 33.3 L, MCV 97.7, MCH 32.6 H, MCHC 33.3, RDW Std Deviation 50.8 H, RDW Coeff of [place] 14.2, Plt Count 224, MPV 11.5, Immature Gran % (Auto) 0.400, Neut % (Auto) 55.5, Lymph % (Auto) 35.9, [place] % (Auto) 6.3, Eos % (Auto) 1.7, Baso % (Auto) 0.2, Absolute Neuts (auto) 2.6, Absolute Lymphs (auto) 1.65, Nucleated RBC % 0, D-Dimer Quant (PE/DVT) Cancelled, Sodium 140, Potassium 4.5, Chloride 104, Carbon Dioxide 23.9, Anion Gap 12, BUN 21 H, Creatinine 0.82, Est GFR (MDRD) Non-Af 77, BUN/Creatinine Ratio 25.2 H, Glucose 126 H, Hemoglobin A1c 6.6 H, Calcium 9.0, Troponin T High Sens 9 D 11/13/24 18:15: D-Dimer Quant (PE/DVT) 0.27 11/13/24 18:20: Troponin T Hi Sens 2 Hr 18 H 11/13/24 20:04: Troponin T Hi Sens 4Hr 10, NT pro BNP II 77, TSH 3.680 11/14/24 05:21: WBC 5.6, RBC 3.54 L, Hgb 11.5 L, Hct 34.3 L, MCV 96.9, MCH 32.5 H, MCHC 33.5, RDW Std Deviation 50.5 H, RDW Coeff of [place] 14.1, Plt Count 211, MPV 10.9, Sodium 142, Potassium 4.4, Chloride 104, Carbon Dioxide 26.0, Anion Gap 11, BUN 20 H, Creatinine 1.11, Estim Creat Clear Calc 44.72 L, Est GFR (MDRD) Non-Af 53 L, BUN/Creatinine Ratio 17.6, Glucose 111 H, Calcium 8.8, Triglycerides 85, Cholesterol 230 H, LDL Cholesterol, Calc 162, VLDL Cholesterol 17, HDL Cholesterol 52, Cholesterol/HDL Ratio 4.47 Micro: Microbiology 11/13/24 22:25 Mucosa - Nose Respiratory Panel (PCR) - Final Rhythm Strip Rhythm Strip: Sinus Rhythm Rate: 75 Cardiology Labs/Tests 11/13/24 16:05: WBC 4.6, RBC 3.41 L, Hgb 11.1 L, Hct 33.3 L, MCV 97.7, MCH 32.6 H, MCHC 33.3, Plt Count 224, MPV 11.5, Immature Gran % (Auto) 0.400, Neut % (Auto) 55.5, Lymph % (Auto) 35.9, [place] % (Auto) 6.3, Eos % (Auto) 1.7, Baso % (Auto) 0.2, Absolute Neuts (auto) 2.6, Nucleated RBC % 0, D-Dimer Quant (PE/DVT) Cancelled, Sodium 140, Potassium 4.5, Chloride 104, Carbon Dioxide 23.9, Anion Gap 12, BUN 21 H, Creatinine 0.82, Est GFR (MDRD) Non-Af 77, BUN/Creatinine Ratio 25.2 H, Glucose 126 H, Hemoglobin A1c 6.6 H, Calcium 9.0 11/13/24 18:15: D-Dimer Quant (PE/DVT) 0.27 11/14/24 05:21: WBC 5.6, RBC 3.54 L, Hgb 11.5 L, Hct 34.3 L, MCV 96.9, MCH 32.5 H, MCHC 33.5, Plt Count 211, MPV 10.9, Sodium 142, Potassium 4.4, Chloride 104, Carbon Dioxide 26.0, Anion Gap 11, BUN 20 H, Creatinine 1.11, Est GFR (MDRD) Non-Af 53 L, BUN/Creatinine Ratio 17.6, Glucose 111 H, Calcium 8.8, Triglycerides 85, Cholesterol 230 H, VLDL Cholesterol 17, HDL Cholesterol 52, Cholesterol/HDL Ratio 4.47 Rhythm: EKG: ECHO: Stress Test: Cardiac Cath: PCI: CT Surgery: Holter monitor: EPS: PPM: CXR: Chest CT Scan: Radiography Diagnostic Testing: Radiology Impression Chest X-Ray 11/13/24 17:17 IMPRESSION: Mildly prominent interstitial markings could be the result of hypoventilatory change, pulmonary edema, or atypical infection. Reading Location: [facility]
--- NOTE | 2024-11-14 10:08 | PCM.PN.HOSP ---
Reason for Visit Chief Complaint: chest pain Subjective Subjective Patient is a 73-year-old lady admitted with chest pain Objective Data Objective Data Vital Signs: Vital Signs Temp Pulse Resp BP Pulse Ox O2 Del Method 97.0 F L 76 12 134/74 H 100 Room Air 11/14/24 08:37 11/14/24 08:45 11/14/24 08:37 11/14/24 08:37 11/14/24 08:37 11/14/24 09:53 Oxygen Delivery Method Room Air Weight: 77.2 kg Body Mass Index (BMI) 31.1 Intake & Output: Intake and Output for Last 24 Hours 11/12/24 11/13/24 11/14/24 23:59 23:59 23:59 Intake Total 467.5 / 467.5 0 / 0 Output Total 800 / 800 Balance 467.5 / 467.5 -800 / -800 Lab / Micro Data 11/14/24 05:21 11/14/24 05:21 Labs: Laboratory Results - last 24 hr 11/13/24 16:05: WBC 4.6, RBC 3.41 L, Hgb 11.1 L, Hct 33.3 L, MCV 97.7, MCH 32.6 H, MCHC 33.3, RDW Std Deviation 50.8 H, RDW Coeff of [place] 14.2, Plt Count 224, MPV 11.5, Immature Gran % (Auto) 0.400, Neut % (Auto) 55.5, Lymph % (Auto) 35.9, [place] % (Auto) 6.3, Eos % (Auto) 1.7, Baso % (Auto) 0.2, Absolute Neuts (auto) 2.6, Absolute Lymphs (auto) 1.65, Nucleated RBC % 0, D-Dimer Quant (PE/DVT) Cancelled, Sodium 140, Potassium 4.5, Chloride 104, Carbon Dioxide 23.9, Anion Gap 12, BUN 21 H, Creatinine 0.82, Est GFR (MDRD) Non-Af 77, BUN/Creatinine Ratio 25.2 H, Glucose 126 H, Hemoglobin A1c 6.6 H, Calcium 9.0, Troponin T High Sens 9 D 11/13/24 18:15: D-Dimer Quant (PE/DVT) 0.27 11/13/24 18:20: Troponin T Hi Sens 2 Hr 18 H 11/13/24 20:04: Troponin T Hi Sens 4Hr 10, NT pro BNP II 77, TSH 3.680 11/14/24 05:21: WBC 5.6, RBC 3.54 L, Hgb 11.5 L, Hct 34.3 L, MCV 96.9, MCH 32.5 H, MCHC 33.5, RDW Std Deviation 50.5 H, RDW Coeff of [place] 14.1, Plt Count 211, MPV 10.9, Sodium 142, Potassium 4.4, Chloride 104, Carbon Dioxide 26.0, Anion Gap 11, BUN 20 H, Creatinine 1.11, Estim Creat Clear Calc 44.72 L, Est GFR (MDRD) Non-Af 53 L, BUN/Creatinine Ratio 17.6, Glucose 111 H, Calcium 8.8, Triglycerides 85, Cholesterol 230 H, LDL Cholesterol, Calc 162, VLDL Cholesterol 17, HDL Cholesterol 52, Cholesterol/HDL Ratio 4.47 Micro: Microbiology 11/13/24 22:25 Mucosa - Nose Respiratory Panel (PCR) - Final Radiography Diagnostic Testing: Radiology Impression Chest X-Ray 11/13/24 17:17 IMPRESSION: Mildly prominent interstitial markings could be the result of hypoventilatory change, pulmonary edema, or atypical infection. Reading Location: [id number] Rhythm Strip Rhythm Strip: Sinus Rhythm Rate: 75 Physical Exam Narrative GENERAL: cooperative HEENT: Atraumatic; normocephalic EYES; Anicteric, Normal Conjunctiva NECK; supple, normal thyroid, RESPIRATORY: Diminished to auscultation CARDIOVASCULAR: Regular S1 S2, GI: soft, normoactive bowel sounds, : No Renal angle tenderness; EXTREMITIES: No edema, no clubbing, MUSCULOSKELETAL: no muscle wasting NEURO: Awake; no lateralizing signs. SKIN: No Rash PSYCH; Flat affect Assessment & Plan Assessment/Plan (1) Chest pain: QUALIFIERS: Chest pain type: unspecified Qualified Code(s): R07.9 - Chest pain, unspecified PLAN: Plan Patient is a 73-year-old female who presented to [facility] ED on 11/13/2024 with chest pain. 1. Chest pain ? Patient was placed on a monitored bed AR ruled out with serial cardiac enzymes. Patient has history of CAD with previous stent placement and CABG was kept n.p.o. and consultation placed to cardiology decision regarding subsequent evaluation left heart cath versus stress test defer to cardiology. Patient was seen in consultation by cardiology recommendation was made for patient to undergo subsequent evaluation with a nuclear stress 3. Coronary artery disease ? With previous stent and CABG. Patient remains on guideline directed medical therapy 3. Hypertension ? Blood pressure controlled, home medications continued with dose adjustment as needed 4. Dyslipidemia ?Patient is on statin therapy, continued at home dose 5. Rheumatoid arthritis ? Patient is on hydroxychloroquine 6. Seizure disorder ? Patient is on valproic acid continue with home dose 7. Diabetes mellitus type 2 with complications including peripheral neuropathy ? Patient was placed on Accu-Cheks AC and at bedtime with sliding scale coverage. 8. Diabetic polyneuropathy ? Patient is on gabapentin 9. Obesity 1 with BMI of 31.1 ? Weight loss advised 10. Anemia ? Secondary to chronic disorder monitoring H&H and transfuse if patient becomes symptomatic or hemoglobin falls below 7 11. DVT prophylaxis ? Subcu Lovenox Charges/Coding Visit Charges Inpatient E&M: 12490 Subs Hosp L2
--- NOTE | 2024-11-14 14:16 | STRESSREP ---
Stress Test Report Pharmacologic myocardial perfusion stress test. 73-year-old lady with a history of chest pain Resting EKG demonstrates sinus rhythm with a rate of 66 bpm. Resting blood pressure is 122/82 mmHg. 0.4 mg of regadenoson was infused per usual protocol followed by rapid intravenous saline flush injection. Continuous EKG monitoring was performed. The maximum heart rate was 95 bpm which was 63% of max impacted heart rate the maximum workload was 1 metabolic equivalent. At rest there were no ST or T wave changes noted to suggest ischemia and at peak infusion nonspecific ST changes were noted which did not meet the criteria for ischemia. No clinical angina is noted. The final blood pressure was 110/70 mmHg. Myocardial perfusion protocol. 12.0 mCi of technetium 99m sestamibi was injected at rest. 0.4 mg of regadenoson was infused per usual protocol. At peak infusion 34.3 mCi of technetium 99m sestamibi was injected stress images were obtained stress and rest images were reconstructed and compared in the short axis vertical long and horizontal long axis. Gated images were also obtained. Perfusion SPECT analysis: Review of the stress images demonstrate normal uptake of tracer noted in all areas of the myocardium. The resting images similar demonstrated normal uptake of tracer noted in all areas of the myocardium. No areas of reversibility are noted to suggest ischemia and no previous infarct is noted. Gated SPECT analysis: The gated ejection fraction is 67%. Conclusion: Normal pharmacologic myocardial perfusion stress test. Preserved ejection fraction.
--- NOTE | 2024-11-14 16:01 | CHAPLAIN ---
Type of Pastoral Visit _x__ Initial Visit ___ Follow-up Visit ___ On-call Visit ___ General Patient Visit ___ Spiritual Assessment ___ Family Conference ___ Bereavement ___ Rapid Response ___ Code Blue ___ Other (describe below) Pastoral Care Referral From _x__ Patient ___ Family ___ Nurse ___ Physician ___ Economics Department Chair ___ Supervisor Transferring And Boxing ___ Other (describe below) Sacrament/Intervention _x__ Active listening ___ Anointing ___ Rastafarian ___ Bereavement ___ Communion ___ Wendi exploration ___ ___ Life review ___ Prayer ___ Reconciliation ___ Sacrament of Sick _x__ Supportive presence ___ Wedding ___ Other (describe below) Pastoral Comments patient has been seen before and as usual she is accepting of spiritual care but keeps the visit short and declares that she will be fine and that she just needs to go home; her mother is in the room and references are made that Mom is always helping and being there and Mom is in better shape than I am; patient attributes the difference in health to I need to behave more and Mom behaves; pt denies further support but agrees that she is capable of doing better for herself; patient's mother is offered support too
--- NOTE | 2024-11-14 16:09 | CASEMGMT ---
Met with patient to complete ROJAS form. ROJAS form and its content were verbally explained and patient's questions were answered to the best of my ability.? Patient voiced understanding and signed ROJAS form.? Patient provided a copy of signed ROJAS form and original placed in patient's chart.? Patient had no further questions. Lily Vaca, Discharge Planning Asst
--- NOTE | 2024-11-14 16:18 | DS.PCM_ITS ---
Providers Date of Admission: 11/13/24 Date of Discharge: 11/14/24 Primary Care Physician: Dr. Kannan Garcia MD Consultations 11/13/24 21:47 Consult: Cardiology Routine Consulting Provider: Eleonora Hernandez Reason for Consult: CP w/ slight trop bump, h/o CAD w/ stents and CABG, eval for stress vs LHC EMERGENT Consult: No MD Notified: Yes Date Notified: 11/14/24 Time Notified: 06:48 Method of Notification: Text Reason For Visit: CHEST PAIN Diagnosis Discharge Diagnosis (1) Chest pain: Status: Acute Code(s): R07.9 - Chest pain, unspecified Qualifiers: Chest pain type: unspecified Qualified Code(s): R07.9 - Chest pain, unspecified Plan Patient is a 73-year-old female who presented to [facility] ED on 11/13/2024 with chest pain. 1. Chest pain ? Patient was placed on a monitored bed [place] ruled out with serial cardiac enzymes. Patient has history of CAD with previous stent placement and CABG was kept n.p.o. and consultation placed to cardiology decision regarding subsequent evaluation left heart cath versus stress test defer to cardiology. Patient was seen in consultation by cardiology recommendation was made for patient to undergo subsequent evaluation with a nuclear stress 3. Coronary artery disease ? With previous stent and CABG. Patient remains on guideline directed medical therapy 3. Acute on chronic congestive heart failure with preserved ejection fraction ? Echo from 11/16/2023 demonstrated EF of 65%. Patient did receive furosemide with improvement in symptoms prescription written on discharge 4. Hypertension ? Blood pressure controlled, home medications continued with dose adjustment as needed 5. Rheumatoid arthritis ? Patient is on hydroxychloroquine 6. Seizure disorder ? Patient is on valproic acid continue with home dose 7. Diabetes mellitus type 2 with complications including peripheral neuropathy ? Patient was placed on Accu-Cheks AC and at bedtime with sliding scale coverage. 8. Diabetic polyneuropathy ? Patient is on gabapentin 9. Obesity 1 with BMI of 31.1 ? Weight loss advised 10. Anemia ? Secondary to chronic disorder monitoring H&H and transfuse if patient becomes symptomatic or hemoglobin falls below 7 11. Dyslipidemia ?Patient is on statin therapy, continued at home dose 12. DVT prophylaxis ? Subcu Lovenox Medications at Discharge Home Medications multivitamin 1 tab PO DAILY vitamin 05/20/19 blood-glucose meter (True Metrix Air Glucose Meter kit) #1 ea 02/03/20 calcium citrate 200 mg PO DAILY supplement 05/21/20 disability placard #1 ea 06/27/20 aspirin 81 mg tablet,delayed release (Adult Low Dose Aspirin) 81 mg PO DAILY heart 08/13/20 blood sugar diagnostic (True Metrix Glucose Test Strip) #100 ea 06/17/23 lancets 33 gauge #100 ea 06/17/23 oxycodone 5 mg tablet 5 mg PO Q4H PRN PRN Pain Score 4-10 3 days #20 tabs 11/18/23 Handicap Placard #1 ea 01/07/24 denosumab 60 mg/mL subcutaneous syringe (Prolia) 60 mg subcut [id number] bone health #1 mL 01/19/24 gabapentin 300 mg capsule 300 mg PO QHS #30 caps 02/14/24 metoprolol tartrate 25 mg tablet 25 mg PO QDAY heart #90 tabs 04/19/24 hydrocodone-acetaminophen 5-325mg 5mg-325mg 1 tab PO Q6H PRN PRN Pain 3 days #10 TABLETS 07/14/24 ibuprofen 600 mg tablet 600 mg PO Q6H PRN PRN pain #20 TABLETS 07/14/24 hydroxychloroquine 200 mg tablet See Rx Instructions .Route .COMPLEX immunosuppressant #180 tabs 09/21/24 sitagliptin phosphate 100 mg tablet (Januvia) See Rx Instructions .Route .COMPLEX diabetes #90 tabs 09/21/24 atorvastatin 80 mg tablet 80 mg PO QHS cholesterol 09/28/24 neomycin 3.5 mg/g-polymyxin B 10,000 unit/g-dexameth 0.1 % eye oint 0.5 inch ophthalmic (eye) BID 09/28/24 divalproex 500 mg tablet,delayed release (Depakote) 500 mg .Route .COMPLEX seizures #90 tabs 11/07/24 rosuvastatin 40 mg tablet 40 mg PO DAILY 11/13/24 furosemide 40 mg tablet (Lasix) 40 mg PO DAILY #60 tabs 11/14/24 Hospital Course Summary of Care Provided Minutes Spent on Discharge: 35 Physical Exam Narrative GENERAL: cooperative HEENT: Atraumatic; normocephalic EYES; Anicteric, Normal Conjunctiva NECK; supple, normal thyroid, RESPIRATORY: Diminished to auscultation CARDIOVASCULAR: Regular S1 S2, GI: soft, normoactive bowel sounds, : No Renal angle tenderness; EXTREMITIES: No edema, no clubbing, MUSCULOSKELETAL: no muscle wasting NEURO: Awake; no lateralizing signs. SKIN: No Rash PSYCH; Flat affect Weight / BMI Weight Weight: 77.2 kg Body Mass Index (BMI) 31.1 ABG / Lab / Microbiology Data 11/14/24 05:21 11/14/24 05:21 Laboratory: Laboratory Results - last 24 hr 11/13/24 16:05: WBC 4.6, RBC 3.41 L, Hgb 11.1 L, Hct 33.3 L, MCV 97.7, MCH 32.6 H, MCHC 33.3, RDW Std Deviation 50.8 H, RDW Coeff of [place] 14.2, Plt Count 224, MPV 11.5, Immature Gran % (Auto) 0.400, Neut % (Auto) 55.5, Lymph % (Auto) 35.9, [place] % (Auto) 6.3, Eos % (Auto) 1.7, Baso % (Auto) 0.2, Absolute Neuts (auto) 2.6, Absolute Lymphs (auto) 1.65, Nucleated RBC % 0, D-Dimer Quant (PE/DVT) Cancelled, Sodium 140, Potassium 4.5, Chloride 104, Carbon Dioxide 23.9, Anion Gap 12, BUN 21 H, Creatinine 0.82, Est GFR (MDRD) Non-Af 77, BUN/Creatinine Ratio 25.2 H, Glucose 126 H, Hemoglobin A1c 6.6 H, Calcium 9.0, Troponin T High Sens 9 D 11/13/24 18:15: D-Dimer Quant (PE/DVT) 0.27 11/13/24 18:20: Troponin T Hi Sens 2 Hr 18 H 11/13/24 20:04: Troponin T Hi Sens 4Hr 10, NT pro BNP II 77, TSH 3.680 11/14/24 05:21: WBC 5.6, RBC 3.54 L, Hgb 11.5 L, Hct 34.3 L, MCV 96.9, MCH 32.5 H, MCHC 33.5, RDW Std Deviation 50.5 H, RDW Coeff of [place] 14.1, Plt Count 211, MPV 10.9, Sodium 142, Potassium 4.4, Chloride 104, Carbon Dioxide 26.0, Anion Gap 11, BUN 20 H, Creatinine 1.11, Estim Creat Clear Calc 44.72 L, Est GFR (MDRD) Non-Af 53 L, BUN/Creatinine Ratio 17.6, Glucose 111 H, Calcium 8.8, Triglycerides 85, Cholesterol 230 H, LDL Cholesterol, Calc 162, VLDL Cholesterol 17, HDL Cholesterol 52, Cholesterol/HDL Ratio 4.47 Microbiology: Microbiology 11/13/24 22:25 Mucosa - Nose Respiratory Panel (PCR) - Final Radiography Diagnostic Testing: Radiology Impression Chest X-Ray 11/13/24 17:17 IMPRESSION: Mildly prominent interstitial markings could be the result of hypoventilatory change, pulmonary edema, or atypical infection. Reading Location: [id number] D/C Instructions DC O2, CPAP, BIPAP Needs Home O2 Discharge instructions: No Meaningful Use Info Meaningful Use Meaningful Use Diagnoses (Choose all that apply): CHF CHF KWADWO/ARB ordered at discharge?: No Reason KWADWO/ARB not ordered?: Not indicated Documented LVEF (%): 65 Discharge Plan Admission Admit Date/Time: 11/13/24 20:02 Attending Provider: Maurilio Bradford Primary Care Provider: Kannan Garcia Consulting Providers: Eleonora Hernandez; Edwin Kaplan Discharge Orders/Prescriptions Prescriptions: New furosemide [Lasix] 40 mg tablet 40 mg PO DAILY Qty: 60 0RF Continued multivitamin Tablet 1 tab PO DAILY calcium citrate 200 mg (950 mg) tablet 200 mg PO DAILY aspirin [Adult Low Dose Aspirin] 81 mg tablet,delayed release (DR/EC) 81 mg PO DAILY metoprolol tartrate 25 mg tablet 25 mg PO QDAY Qty: 90 3RF (DME) lancets 33 gauge misc See Rx Instructions .Route Qty: 100 2RF Rx Instructions: As directed (DME) True Metrix Glucose Test Strip Strip See Rx Instructions .ROUTE .MEDSUPPLY Qty: 100 3RF Rx Instructions: check twice a day and as needed divalproex [Depakote] 500 mg tablet,delayed release (DR/EC) 500 mg .ROUTE .COMPLEX Qty: 90 10RF Rx Instructions: Take 1 tablet orally qAM and 2 tablets qPM atorvastatin 80 mg tablet 80 mg PO QHS neomycin-polymyxin B-dexameth 3.5 mg/g-10,000 unit/g-0.1 % ointment 0.5 inch ophthalmic (eye) BID hydroxychloroquine 200 mg tablet See Rx Instructions .ROUTE .COMPLEX Qty: 180 1RF Dose Instruction: TAKE 1 TABLET BY MOUTH TWICE DAILY WITH MEALS Rx Instructions: TAKE 1 TABLET BY MOUTH TWICE DAILY WITH MEALS Januvia 100 mg tablet See Rx Instructions .ROUTE .COMPLEX Qty: 90 1RF Dose Instruction: TAKE 1 TABLET BY MOUTH DAILY Rx Instructions: TAKE 1 TABLET BY MOUTH DAILY oxycodone 5 mg Tablet 5 mg PO Q4H PRN PRN (Reason: Pain Score 4-10) 3 Days Qty: 20 0RF hydrocodone-acetaminophen 5-325 mg tablet 1 tab PO Q6H PRN PRN (Reason: Pain) 3 Days Qty: 10 0RF ibuprofen 600 mg tablet 600 mg PO Q6H PRN PRN (Reason: pain) Qty: 20 0RF gabapentin 300 mg capsule 300 mg PO QHS Qty: 30 0RF rosuvastatin 40 mg tablet 40 mg PO DAILY (DME) blood-glucose meter [True Metrix Air Glucose Meter] Kit See Rx Instructions .ROUTE .MEDSUPPLY Qty: 1 0RF Rx Instructions: As directed (DME) disability placard See Rx Instructions .ROUTE .MEDSUPPLY Qty: 1 0RF Rx Instructions: As directed, Length of time: 5 years (DME) Handicap Placard See Rx Instructions .ROUTE .MEDSUPPLY Qty: 1 0RF Rx Instructions: As directed, length of time 3 years Prolia 60 mg/mL syringe 60 mg subcut [id number] Qty: 1 2RF Referrals / Follow Up: Kannan Garcia MD [Primary Care Provider] - Within 2 Weeks Disposition Disposition (needs filled in before D/C Order can be placed): Home, Self Care Charges/Coding Visit Charges Inpatient E&M: 90191 Disch Hosp >30min
--- NOTE | 2024-11-14 16:35 | CASEMGMT ---
Patient has order for discharge. RN CM in to discuss needs at discharge. Patient denies need or help at discharge. Patient had no further questions or concerns.
== END 2024-11-14 16:29 | disposition home or self-care (01) ==
LOC: ED 19:58 → PCU 11-14 04:10
PROVIDERS: Admitting Provider Hospitalist; Emergency Provider Emergency Medicine; PCP Internal Medicine; Visit Provider Internal Medicine
DX: R07.89 Other chest pain (principal); M06.9 Rheumatoid arthritis, unspecified; I50.33 Acute on chronic diastolic (congestive) heart failure; I11.0 Hypertensive heart disease with heart failure; G40.909 Epilepsy, unspecified, not intractable, without status epilepticus; E11.40 Type 2 diabetes mellitus with diabetic neuropathy, unspecified; G47.33 Obstructive sleep apnea (adult) (pediatric); Z79.899 Other long term (current) drug therapy; Z68.32 Body mass index [BMI] 32.0-32.9, adult; E78.5 Hyperlipidemia, unspecified; E66.811 Obesity, class 1; I25.10 Atherosclerotic heart disease of native coronary artery without angina pectoris; Z79.82 Long term (current) use of aspirin; Z95.1 Presence of aortocoronary bypass graft; K21.9 Gastro-esophageal reflux disease without esophagitis; Z79.85 Long-term (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 of injectable non-insulin antidiabetic drugs; M81.0 Age-related osteoporosis without current pathological fracture; D63.8 Anemia in other chronic diseases classified elsewhere
CPT/HCPCS: 36415; 71045; 78452; 80048; 80061; 83036; 83880; 84443; 84484; 85025; 85027; 85379; 87633; 93005; 93017; 94668; 96361; 96374; 96375; 99221; 99285; A9500; A4216; G0378; J1938; J2405; J2785

== ENCOUNTER → 2025-01-19 | Outpatient (CLI) | payer MEDICARE, SELFPAY ==
[2023-07-29 08:29] VITALS: BMI 30.2
--- NOTE | 2025-01-19 15:40 | RAD_ITS ---
PROCEDURE: ABDOMEN SINGLE VIEW 01/19/2025 REASON FOR EXAM: ABDOMINAL PAIN, CONSTIPATION TECHNIQUE: Procedure Code: RADABD Modality: DX Procedure: ABDOMEN SINGLE VIEW COMPARISON: None relevant FINDINGS: The bowel gas pattern is nonspecific but nonobstructive. [id number] amount of stool is present in the colon. No free air identified. No organomegaly or suspicious calcifications. Osseous structures reveal multilevel spondylosis through the spine and degenerative changes of both hips. RAD/Abdomen Single View IMPRESSION: Moderate amount of stool in the colon. No obstruction. Reading Location: [id number]
[2025-01-19 15:41] LABS: AST(SGOT) 22 U/L (<=31); Alanine Aminotransfer ALT/SGPT 15 U/L (<=34); Albumin, Serum 4.0 g/dL (3.4-4.8); Alkaline Phosphatase 67 U/L (35-104); Bilirubin, Direct 0.10 mg/dL (0.00-0.30); Globulin 3.0 g/dL (2.2-4.2)
[2025-01-19 16:07] LABS: Cholesterol 242 mg/dL (<=200); Low Density Lipoprotein Calc. 162 mg/dL; Triglycerides 111 mg/dL; Very Low Density Lipoprotein 22 mg/dL (5-40); cholesterol:hdl ratio screen 4.15
[2025-01-19 16:14] LABS: Hematocrit 34.6 % (37-47); Hemoglobin 11.8 g/dL (12.0-15.0); Immature Granulocytes Count 0.000 X10^3/uL (0.0-0.0); Mean Corp Hgb Conc 34.1 g/dL (32-36); Mean Corpuscular Volume 95.1 fL (81-99); Mean Platelet Vol. 11.0 fl (6.2-12.0); NRBC Flagged by Analyzer 0 % (0-5); Platelet Count 204 K/mm3 (150-450); RBC Distribution Width CV 13.1 % (11.6-14.6); RBC Distribution Width SD 46.2 fl (35.1-43.9); Red Blood Count 3.64 M/mm3 (4.2-5.4); White Blood Count 4.3 K/mm3 (4.4-11.0)
[2025-01-19 16:28] LABS: Anion Gap 14 (5-15); BUN 29 mg/dL (4-19); BUN/Creat Ratio 21.7 RATIO (10-20); Calcium,Total 9.3 mg/dL (7.6-11.0); Carbon Dioxide 22.9 mmol/L (21.0-32.0); Chloride 103 mmol/L (98-108); Glucose 90 mg/dL (70-99); Potassium 4.3 mmol/L (3.3-5.1)
[2025-01-19 16:51] LABS: Vitamin B12 332 pg/mL (180-914)
--- OUTSIDE RECORDS SUMMARY | 2025-01-19 18:33 | XMS RPT_ITS | CCD ---
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 risk-cutoff thresholds for the [place] Americanpulation. Performed By: #### L 100.0500, L500.2500, L500.4100 ####[facility] [address] [place], [address] Cholesterol in HDL [Mass/Vol] 52 mg/dL Normal [facility] Comment on above: Result Comment: Mary Grace onal Cholesterol Education Program (NCEP) guidelines:<40 mg/dL: Low HDL-cholesterol (major risk factor for CHD)>= 60 mg/dL: High HDL-cholesterol (negative risk factor forCHD)HDL-cholesterol is affected by a number of factors, e.g.smoking, exercise, hormones, sex and age. Performed By: #### L 100.0500, L500.2500, L500.4100 ####[facility] [address] [place], [address] Cholesterol in LDL [Mass/Vol] 162 mg/dL Normal [facility] Comment on above: Result Comment: Bord yxjpnw=935-517 mg/dL Higher Komd=052 mg/dL or greater Performed By: #### L 100.0500, L500.2500, L500.4100 ####[facility] [address] [place], [address] Cholesterol in VLDL [Mass/Vol] 17 mg/dL Normal 5-40 [facility] Comment on above: Performed By: #### L 100.0500, L500.2500, L500.4100 ####[facility] [address] [place], [address] Triglyceride [Mass/Vol] 85 mg/dL Normal [facility] Comment on above: Result Comment: The drugs N-Acetylcysteine and Metamizole may falselydepress this assay.Normal range: <150 mg/dLBorderline High: 150-199 mg/dLHigh: 200-499 mg/dLVery High: >500 mg/dL Performed By: #### L 100.0500, L500.2500, L500.4100 ####[facility] [address] [place], [address] MCV (mean corpuscular volume ) determinationOrdered By: Edwin Kaplan on 11-14-2024 MCV (RBC) [Entitic vol] 96.9 fL 81-99 [facility] Mean corpuscular hemoglobin (MCH) determinationOrdered By: Edwin Kaplan on 11-14-2024 MCH (RBC) [Entitic mass] 32.5 pg High 27.0-32.0 [facility] Potassium measurement (mass/ volume)Ordered By: Edwin Kaplan on 11-14-2024 Potassium (Unsp spec) [Mass/Vol] 4.4 mmol/L 3.3-5.1 [facility] RBC Auto (Bld) [#/Vol]Ordere d By: Edwin Kaplan on 11-14-2024 RBC (Bld) [#/Vol] 3.54 10*6/uL Low 4.2-5.4 [facility] RDWOrdered By: Edwin aponte on 11-14-2024 RDW 50.5 fl High 35.1-43.9 [facility] RESPIRATORY PANEL MOLECULARo n 11-14-2024 RP PANEL Normal [facility] Comment on above: Performed By: #### M 100.638 ####[facility] [address] [place], [place], [address] Serum creatinine measurement (mass/volume)Ordered By: Edwin Kaplan on 11-14-2024 Creatinine [Mass/Vol] 1.11 mg/dL 0.70-1.20 [facility] Serum glucose measurement (m ass/volume)Ordered By: Edwin Kaplan on 11-14-2024 Glucose [Mass/Vol] 111 mg/dL High 70-99 [facility] Serum or plasma calcium loretta urement (mass/volume)Ordered By: Edwin Kaplan on 11-14-2024 Calcium [Mass/Vol] 8.8 mg/dL 7.6-11.0 [facility] Serum or plasma cholesterol in HDL measurement (mass/volume)Ordered By: Edwin Kaplan on 11-14-2024 Cholesterol in HDL [Mass/Vol] 52 mg/dL >40 [facility] Serum or plasma cholesterol measurement (mass/volume)Ordered By: Edwin Kaplan on 11-14-2024 Cholesterol [Mass/Vol] 230 mg/dL High <201 [facility] Serum or plasma urea nitroge n measurement (mass/volume)Ordered By: Edwin Kaplan on 11-14-2024 Urea nitrogen [Mass/Vol] 20 mg/dL High 4-19 [facility] Sodium levelOrdered By: Cayden Kaplan on 11-14-2024 Sodium [Moles/Vol] 142 mmol/L 133-145 [facility] Stress Reporton 11-14-2024 Stress Report Normal [facility] White blood cell (WBC) count Ordered By: Edwin Kaplan on 11-14-2024 WBC (Bld) [#/Vol] 5.6 10*3/uL 4.4-11.0 [facility] 12 Lead EKGon 11-13-2024 12 Lead EKG Normal [facility] 12 Lead EKG Normal [facility] Absolute lymphocyte countOrd ered By: Turner Armendariz on 11-13-2024 Lymphocytes Auto (Unsp spec) [#/Vol] 1.65 10*3/uL 0.83-4.51 [facility] Anion gap in Serum or Plasma Ordered By: Turner Armendariz on 11-13-2024 Anion gap [Moles/Vol] 12 mmol/L 5-15 [facility] Automated lymphocyte count a s percentage of total leukocytesOrdered By: Turner Armendraiz on 11-13-2024 Lymphocytes/100 WBC Auto (Unsp spec) 35.9 % 19-41 [facility] BUN/creatinine ratioOrdered By: Turner Armendariz on 11-13-2024 Urea nitrogen/Creatinine [Mass ratio] 25.2 mg/mg High 10-20 [facility] Basic Metabolic Profile (BMP )on 07-13-2025 BUN/CRE 25.2 RATIO High 10-20 [facility] Comment on above: Performed By: #### L 100.0100, L500.2500, L501.4021 ####[facility] [address] [place], [address] Calcium [Mass/Vol] 9.0 mg/dL Normal 7.6-11.0 [facility] Comment on above: Performed By: #### L 100.0100, L500.2500, L501.4021 ####[facility] [address] [place], [address] Chloride [Moles/Vol] 104 mmol/L Normal 98-108 [facility] Comment on above: Performed By: #### L 100.0100, L500.2500, L501.4021 ####[facility] [address] [place], [address] CO2 [Moles/Vol] 23.9 mmol/L Normal 21.0-32.0 [facility] Comment on above: Performed By: #### L 100.0100, L500.2500, L501.4021 ####[facility] [address] [place], [address] Creatinine [Mass/Vol] 0.82 mg/dL Normal 0.70-1.20 [facility] Comment on above: Performed By: #### L 100.0100, L500.2500, L501.4021 ####[facility] [address] [place], [address] GAP 12 Normal 5-15 [facility] Comment on above: Performed By: #### L 100.0100, L500.2500, L501.4021 ####[facility] [address] [place], [address] GFR/1.73 sq M.predicted among non-blacks MDRD (S/P/Bld) [Vol rate/Area] 77 mL/min/{1.73_m2} Normal >60 [facility] Comment on above: Result Comment: mL/m in/1.73m2 CKD-EPI Creatinine Equation (2020) Performed By: #### L 100.0100, L500.2500, L501.4021 ####[facility] [address] [place], [address] Glucose [Mass/Vol] 126 mg/dL High 70-99 [facility] Comment on above: Performed By: #### L 100.0100, L500.2500, L501.4021 ####[facility] [address] [place], [address] Potassium [Moles/Vol] 4.5 mmol/L Normal 3.3-5.1 [facility] Comment on above: Result Comment: Hemo lysis present, Results??could be affected.?? Performed By: #### L 100.0100, L500.2500, L501.4021 ####[facility] [address] [place], [address] Sodium [Moles/Vol] 140 mmol/L Normal 133-145 [facility] Comment on above: Performed By: #### L 100.0100, L500.2500, L501.4021 ####[facility] [address] [place], [address] Urea nitrogen [Mass/Vol] 21 mg/dL High 4-19 [facility] Comment on above: Performed By: #### L 100.0100, L500.2500, L501.4021 ####[facility] [address] [place], [address] Basophil percentageOrdered B y: Remus Ungur on 11-13-2024 Basophils/100 WBC (Bld) 0.2 % 0-1 [facility] CBC W/Diff, Automatedon 11-01 Absolute Lymph 1.65 X10 3/uL Normal 0.83-4.51 [facility] Comment on above: Performed By: #### L 100.0100, L500.2500, L501.4021 ####[facility] [address] [place], [address] Absolute Neut 2.6 X10 3/uL Normal 2.0-7.7 [facility] Comment on above: Performed By: #### L 100.0100, L500.2500, L501.4021 ####[facility] [address] [place], [address] Basophils/100 WBC (Bld) 0.2 % Normal 0-1 [facility] Comment on above: Performed By: #### L 100.0100, L500.2500, L501.4021 ####[facility] [address] [place], [address] Eosinophils/100 WBC (Bld) 1.7 % Normal 0-5 [facility] Comment on above: Performed By: #### L 100.0100, L500.2500, L501.4021 ####[facility] [address] [place], [address] Erythrocyte distribution width (RBC) [Ratio] 14.2 % Normal 11.6-14.6 [facility] Comment on above: Performed By: #### L 100.0100, L500.2500, L501.4021 ####[facility] [address] [place], [address] Hematocrit (Bld) [Volume fraction] 33.3 % Low 37-47 [facility] Comment on above: Performed By: #### L 100.0100, L500.2500, L501.4021 ####[facility] [address] [place], [address] Hemoglobin (Bld) [Mass/Vol] 11.1 g/dL Low 12.0-15.0 [facility] Comment on above: Performed By: #### L 100.0100, L500.2500, L501.4021 ####[facility] [address] [place], [address] IG% 0.400 Normal 0.0-0.9 [facility] Comment on above: Result Comment: IG% - Immature Granulocytes (promyelocytes, myelocytes andmetamyelocytes) > 1% indicates that a LEFT SHIFT is Present. Performed By: #### L 100.0100, L500.2500, L501.4021 ####[facility] [address] [place], [address] Lymphocytes/100 WBC (Bld) 35.9 % Normal 19-41 [facility] Comment on above: Performed By: #### L 100.0100, L500.2500, L501.4021 ####[facility] [address] [place], [address] MCH (RBC) [Entitic mass] 32.6 pg High 27.0-32.0 [facility] Comment on above: Performed By: #### L 100.0100, L500.2500, L501.4021 ####[facility] [address] [place], [address] MCHC (RBC) [Mass/Vol] 33.3 g/dL Normal 32-36 [facility] Comment on above: Performed By: #### L 100.0100, L500.2500, L501.4021 ####[facility] [address] [place], [address] MCV (RBC) [Entitic vol] 97.7 fL Normal 81-99 [facility] Comment on above: Performed By: #### L 100.0100, L500.2500, L501.4021 ####[facility] [address] [place], [address] Monocytes/100 WBC (Bld) 6.3 % Normal 0-10 [facility] Comment on above: Performed By: #### L 100.0100, L500.2500, L501.4021 ####[facility] [address] [place], [address] Neutrophils/100 WBC (Bld) 55.5 % Normal 47-70 [facility] Comment on above: Performed By: #### L 100.0100, L500.2500, L501.4021 ####[facility] [address] [place], [address] Nucleated RBC (Bld) [#/Vol] 0 10*3/uL Normal 0-5 [facility] Comment on above: Performed By: #### L 100.0100, L500.2500, L501.4021 ####[facility] [address] [place], [address] Platelet mean volume (Bld) [Entitic vol] 11.5 fL Normal 6.2-12.0 [facility] Comment on above: Performed By: #### L 100.0100, L500.2500, L501.4021 ####[facility] [address] [place], [address] Platelets (Bld) [#/Vol] 224 10*3/uL Normal 150-450 [facility] Comment on above: Performed By: #### L 100.0100, L500.2500, L501.4021 ####[facility] [address] [place], [address] RBC (Bld) [#/Vol] 3.41 10*6/uL Low 4.2-5.4 [facility] Comment on above: Performed By: #### L 100.0100, L500.2500, L501.4021 ####[facility] [address] [place], [address] RDW SD 50.8 fl High 35.1-43.9 [facility] Comment on above: Performed By: #### L 100.0100, L500.2500, L501.4021 ####[facility] [address] [place], [place], [address] WBC (Bld) [#/Vol] 4.6 10*3/uL Normal 4.4-11.0 [facility] Comment on above: Performed By: #### L 100.0100, L500.2500, L501.4021 ####[facility] [address] [place], [address] Carbon dioxide, total [Moles /volume] in Central venous bloodOrdered By: Turner Armendariz on 11-13-2024 CO2 [Moles/Vol] 23.9 mmol/L 21.0-32.0 [facility] Chest 1 View (Portable)on Chest 1 View (Portable) Normal [facility] Chloride assayOrdered By: Sabiha Armendariz on 11-13-2024 Chloride [Moles/Vol] 104 mmol/L 98-108 [facility] D-Dimer Quantitative (DVT/PE )on 11-13-2024 D-DIMER QUANT 0.27 FEU/ug/m Normal 0.27-0.49 [facility] Comment on above: Result Comment: NORM AL D-Dimer level (<0.50) indicates no DVT or PE. Performed By: #### L 300.8000 ####[facility] [address] [place], [place], [address] Emergency Department Summary on 11-13-2024 Emergency Department Summary Normal [facility] Eosinophil percentageOrdered By: Rem Ungdavid on 11-13-2024 Eosinophils/100 WBC (Bld) 1.7 % 0-5 [facility] Erythrocyte distribution wid th ratioOrdered By: Remus Ungur on 11-13-2024 Erythrocyte distribution width (RBC) [Ratio] 14.2 % 11.6-14.6 [facility] Erythrocyte distribution wid th standard deviationOrdered By: Remus Ungur on 11-13-2024 Erythrocyte distribution width (RBC) [Ratio] 50.8 fl High 35.1-43.9 [facility] Glomerular filtration rate ( GFR) estimation/1.73 sq m using serum, plasma, or whole bOrdered By: Turner Armendariz on 11-13-2024 GFR/1.73 sq M.predicted among non-blacks MDRD (S/P/Bld) [Vol rate/Area] 77 mL/min/{1.73_m2} >60 [facility] H AND P Exam - Hospitaliston 11-13-2024 H&P Exam - Hospitalist Normal [facility] Hematocrit Auto (Bld) [Volum e fraction][facility]: [facility] on 11-13-2024 Hematocrit (Bld) [Volume fraction] 33.3 % Low 37-47 [facility] Hemoglobin A1con 11-13-2024 HbA1c (Bld) [Mass fraction] 6.6 % High <=5.6 [facility] Comment on above: Result Comment: Norm al < 5.7 % Prediabetic 5.7 - 6.4 % Diabetic >or= 6.5 % Please note range changes. Performed By: #### L 501.9985 ####[facility] [address] [place], [place], [address] Hemoglobin A1c percentageOrd ered By: Edwin Kaplan on 11-13-2024 HbA1c (Bld) [Mass fraction] 6.6 % High <5.7 [facility] Hemoglobin measurementOrdere d By: Turner Armendariz on 11-13-2024 Hemoglobin (Bld) [Mass/Vol] 11.1 g/dL Low 12.0-15.0 [facility] Immature granulocytes/100 WB C Auto (Bld)Ordered By: Turner Armendariz on 11-13-2024 Immature granulocytes/100 WBC (Bld) 0.400 % 0.0-0.9 [facility] L499.0042on 11-13-2024 Trop T High Sen 18 ng/L High <=14 [facility] Comment on above: Performed By: #### L 499.0042 ####[facility] [address] [place], [place], [address] L499.0043on 11-13-2024 Trop T High Sen 10 ng/L Normal <=14 [facility] Comment on above: Performed By: #### L 499.0043 ####[facility] [address] [place], [address] L501.4021on 11-13-2024 Trop T High Sen 9 ng/L Normal <=14 [facility] Comment on above: Performed By: #### L 100.0100, L500.2500, L501.4021 ####[facility] [address] [place], [address] L503.7505on 11-13-2024 Natriuretic peptide B (Bld) [Mass/Vol] 77 pg/mL Normal <=900 [facility] Comment on above: Result Comment: Hear t Failure Unlikely: < 300 pg/mLHeart Failure Likely< 50 Years: > 450 pg/mL50-75 Years: > 900 pg/mL>75 Years: > 1800 pg/mL Performed By: #### L 501.9520, L503.7505 ####[facility] [address] [place], [address] MCV (mean corpuscular volume ) determinationOrdered By: Turner Armendariz on 11-13-2024 MCV (RBC) [Entitic vol] 97.7 fL 81-99 [facility] Mean corpuscular hemoglobin (MCH) determinationOrdered By: Turner Armendariz on 11-13-2024 MCH (RBC) [Entitic mass] 32.6 pg High 27.0-32.0 [facility] Monocyte percentageOrdered B y: Turner Armendariz on 11-13-2024 Monocytes/100 WBC (Bld) 6.3 % 0-10 [facility] Natriuretic peptide.B prohor thai N-Terminal [Mass/volume] in Serum or PlasmaOrdered By: Edwin Kaplan on 11-13-2024 Natriuretic peptide.B prohormone N-Terminal [Mass/Vol] 77 pg/mL <900 [facility] Neutrophil percentageOrdered By: Turner Armendariz on 11-13-2024 Neutrophils/100 WBC (Bld) 55.5 % 47-70 [facility] Platelet countOrdered By: Sabiha Armendariz on 11-13-2024 Platelets (Bld) [#/Vol] 224 10*3/uL 150-450 [facility] Potassium measurement (mass/ volume)Ordered By: Natalieus Quinonesdavid on 11-13-2024 Potassium (Unsp spec) [Mass/Vol] 4.5 mmol/L 3.3-5.1 [facility] RBC Auto (Bld) [#/Vol]Ordere d By: Natalieus Quinonesdavid on 11-13-2024 RBC (Bld) [#/Vol] 3.41 10*6/uL Low 4.2-5.4 [facility] Respiratory pathogens detect ion panel by molecular detection methodOrdered By: Edwin Kaplan on 11-13-2024 Respiratory pathogens DNA and RNA panel GERONIMO+probe (Resp) [facility] Serum creatinine measurement (mass/volume)Ordered By: Turner Armendariz on 11-13-2024 Creatinine [Mass/Vol] 0.82 mg/dL 0.70-1.20 [facility] Serum glucose measurement (m ass/volume)Ordered By: Turner Armendariz on 11-13-2024 Glucose [Mass/Vol] 126 mg/dL High 70-99 [facility] Serum or plasma calcium loretta urement (mass/volume)Ordered By: Turner Marcello on 11-13-2024 Calcium [Mass/Vol] 9.0 mg/dL 7.6-11.0 [facility] Serum or plasma urea nitroge n measurement (mass/volume)Ordered By: Turner Armendariz on 11-13-2024 Urea nitrogen [Mass/Vol] 21 mg/dL High 4-19 [facility] Sodium levelOrdered By: Felisha Armendariz on 11-13-2024 Sodium [Moles/Vol] 140 mmol/L 133-145 [facility] TSH DL <= 0.005 mIU/L QnOrde red By: Edwin Kaplan on 11-13-2024 TSH Qn 3.680 uIU/mL 0.300-4.200 [facility] Thyroid Stim Hormone (TSH)on 11-13-2024 TSH 3.680 uIU/mL Normal 0.300-4.200 [facility] Comment on above: Performed By: #### L 501.9520, L503.7505 ####[facility] [address] [place], [address] Troponin T.cardiac [Mass/vol ume] in Serum or Plasma by High sensitivity methodOrdered By: Turner Armendariz on 11-13-2024 Troponin T.cardiac High sensitivity method [Mass/Vol] 10 ng/L <14 [facility] Troponin T.cardiac High sensitivity method [Mass/Vol] 18 ng/L High <14 [facility] Troponin T.cardiac High sensitivity method [Mass/Vol] 9 ng/L <14 [facility] White blood cell (WBC) count Ordered By: Turner Armendariz on 11-13-2024 WBC (Bld) [#/Vol] 4.6 10*3/uL 4.4-11.0 [facility] CBC-Complete Blood Cnt No Di ffon 11-11-2024 HCT Normal 37-47 [facility] Comment on above: Result Comment: UTO X2 ATTEMPTS - PATIENT LEFT TO GO TO SLEEP STUDY NEVERCAME BACK - EEGGEMAN Performed By: #### L 100.0500, L500.4050 ####[facility] [address] [place], [address] HGB Normal 12.0-15.0 [facility] Comment on above: Result Comment: UTO X2 ATTEMPTS - PATIENT LEFT TO GO TO SLEEP STUDY NEVERCAME BACK - EEGGEMAN Performed By: #### L 100.0500, L500.4050 ####[facility] [address] [place], [address] MCH Normal 27.0-32.0 [facility] Comment on above: Result Comment: UTO X2 ATTEMPTS - PATIENT LEFT TO GO TO SLEEP STUDY NEVERCAME BACK - EEGGEMAN Performed By: #### L 100.0500, L500.4050 ####[facility] [address] [place], [address] MCHC Normal 32-36 [facility] Comment on above: Result Comment: UTO X2 ATTEMPTS - PATIENT LEFT TO GO TO SLEEP STUDY NEVERCAME BACK - EEGGEMAN Performed By: #### L 100.0500, L500.4050 ####[facility] [address] [place], [address] MCV Normal 81-99 [facility] Comment on above: Result Comment: UTO X2 ATTEMPTS - PATIENT LEFT TO GO TO SLEEP STUDY NEVERCAME BACK - EEGGEMAN Performed By: #### L 100.0500, L500.4050 ####[facility] [address] [place], [address] PLT Normal 150-450 [facility] Comment on above: Result Comment: UTO X2 ATTEMPTS - PATIENT LEFT TO GO TO SLEEP STUDY NEVERCAME BACK - EEGGEMAN Performed By: #### L 100.0500, L500.4050 ####[facility] [address] [place], [address] RBC Normal 4.2-5.4 [facility] Comment on above: Result Comment: UTO X2 ATTEMPTS - PATIENT LEFT TO GO TO SLEEP STUDY NEVERCAME BACK - EEGGEMAN Performed By: #### L 100.0500, L500.4050 ####[facility] [address] [place], [address] RDW CV Normal 11.6-14.6 [facility] Comment on above: Result Comment: UTO X2 ATTEMPTS - PATIENT LEFT TO GO TO SLEEP STUDY NEVERCAME BACK - EEGGEMAN Performed By: #### L 100.0500, L500.4050 ####[facility] [address] [place], [address] RDW SD Normal 35.1-43.9 [facility] Comment on above: Result Comment: UTO X2 ATTEMPTS - PATIENT LEFT TO GO TO SLEEP STUDY NEVERCAME BACK - EEGGEMAN Performed By: #### L 100.0500, L500.4050 ####[facility] [address] [place], [address] WBC Normal 4.4-11.0 [facility] Comment on above: Result Comment: UTO X2 ATTEMPTS - PATIENT LEFT TO GO TO SLEEP STUDY NEVERCAME BACK - EEGGEMAN Performed By: #### L 100.0500, L500.4050 ####[facility] [address] [place], [address] Comprehensive Metabolic Prof ilon 11-11-2024 ALB Normal 3.4-4.8 [facility] Comment on above: Result Comment: UTO X2 ATTEMPTS - PATIENT LEFT TO GO TO SLEEP STUDY NEVERCAME BACK - EEGGEMAN Performed By: #### L 100.0500, L500.4050 ####[facility] [address] [place], [address] ALK PHOS Normal 35-104 [facility] Comment on above: Result Comment: UTO X2 ATTEMPTS - PATIENT LEFT TO GO TO SLEEP STUDY NEVERCAME BACK - EEGGEMAN Performed By: #### L 100.0500, L500.4050 ####[facility] [address] [place], [address] ALT Normal <=34 [facility] Comment on above: Result Comment: UTO X2 ATTEMPTS - PATIENT LEFT TO GO TO SLEEP STUDY NEVERCAME BACK - EEGGEMAN Performed By: #### L 100.0500, L500.4050 ####[facility] [address] [place], [address] AST Normal <=31 [facility] Comment on above: Result Comment: UTO X2 ATTEMPTS - PATIENT LEFT TO GO TO SLEEP STUDY NEVERCAME BACK - EEGGEMAN Performed By: #### L 100.0500, L500.4050 ####[facility] [address] [place], [address] BUN Normal 4-19 [facility] Comment on above: Result Comment: UTO X2 ATTEMPTS - PATIENT LEFT TO GO TO SLEEP STUDY NEVERCAME BACK - EEGGEMAN Performed By: #### L 100.0500, L500.4050 ####[facility] [address] [place], [address] BUN/CRE Normal 10-20 [facility] Comment on above: Result Comment: UTO X2 ATTEMPTS - PATIENT LEFT TO GO TO SLEEP STUDY NEVERCAME BACK - EEGGEMAN Performed By: #### L 100.0500, L500.4050 ####[facility] [address] [place], [address] Calcium Normal 7.6-11.0 [facility] Comment on above: Result Comment: UTO X2 ATTEMPTS - PATIENT LEFT TO GO TO SLEEP STUDY NEVERCAME BACK - EEGGEMAN Performed By: #### L 100.0500, L500.4050 ####[facility] [address] [place], [address] CL Normal 98-108 [facility] Comment on above: Result Comment: UTO X2 ATTEMPTS - PATIENT LEFT TO GO TO SLEEP STUDY NEVERCAME BACK - EEGGEMAN Performed By: #### L 100.0500, L500.4050 ####[facility] [address] [place], [address] CO2 Normal 21.0-32.0 [facility] Comment on above: Result Comment: UTO X2 ATTEMPTS - PATIENT LEFT TO GO TO SLEEP STUDY NEVERCAME BACK - EEGGEMAN Performed By: #### L 100.0500, L500.4050 ####[facility] [address] [place], [address] CREAT,SERUM Normal 0.70-1.20 [facility] Comment on above: Result Comment: UTO X2 ATTEMPTS - PATIENT LEFT TO GO TO SLEEP STUDY NEVERCAME BACK - EEGGEMAN Performed By: #### L 100.0500, L500.4050 ####[facility] [address] [place], [address] eGFR Normal >60 [facility] Comment on above: Result Comment: UTO X2 ATTEMPTS - PATIENT LEFT TO GO TO SLEEP STUDY NEVERCAME BACK - EEGGEMAN Performed By: #### L 100.0500, L500.4050 ####[facility] [address] [place], [address] GAP Normal 5-15 [facility] Comment on above: Result Comment: UTO X2 ATTEMPTS - PATIENT LEFT TO GO TO SLEEP STUDY NEVERCAME BACK - EEGGEMAN Performed By: #### L 100.0500, L500.4050 ####[facility] [address] [place], [address] GLU Normal 70-99 [facility] Comment on above: Result Comment: UTO X2 ATTEMPTS - PATIENT LEFT TO GO TO SLEEP STUDY NEVERCAME BACK - EEGGEMAN Performed By: #### L 100.0500, L500.4050 ####[facility] [address] [place], [address] Potassium Normal 3.3-5.1 [facility] Comment on above: Result Comment: UTO X2 ATTEMPTS - PATIENT LEFT TO GO TO SLEEP STUDY NEVERCAME BACK - EEGGEMAN Performed By: #### L 100.0500, L500.4050 ####[facility] [address] [place], [address] T BILI Normal 0.00-1.30 [facility] Comment on above: Result Comment: UTO X2 ATTEMPTS - PATIENT LEFT TO GO TO SLEEP STUDY NEVERCAME BACK - EEGGEMAN Performed By: #### L 100.0500, L500.4050 ####[facility] [address] [place], [address] T PROT Normal 5.9-8.4 [facility] Comment on above: Result Comment: UTO X2 ATTEMPTS - PATIENT LEFT TO GO TO SLEEP STUDY NEVERCAME BACK - EEGGEMAN Performed By: #### L 100.0500, L500.4050 ####[facility] [address] [place], [address] Comprehensive Metabolic Profil Normal 133-145 [facility] Comment on above: Result Comment: UTO X2 ATTEMPTS - PATIENT LEFT TO GO TO SLEEP STUDY NEVERCAME BACK - EEGGEMAN Performed By: #### L 100.0500, L500.4050 ####[facility] [address] [place], [address] Neurology Visit Reporton Neurology Visit Report Normal [facility] Office Visit Reporton 2024 Office Visit Report Normal [facility] Pulmonary Visit Reporton Pulmonary Visit Report Normal [facility] RUBI w/ Reflex Mult Confirmon 09-27-2024 ANTI-DNA (DS)AB TNP Normal [facility] Comment on above: Performed By: #### L 501.6710, L505.7010, L3100.5450, L101.9900, L500.2500, L100.0100 ####[facility] [address] [place], [address] ANTI-SS-A TNP Normal [facility] Comment on above: Performed By: #### L 501.6710, L505.7010, L3100.5450, L101.9900, L500.2500, L100.0100 ####[facility] [address] [place], [address] ANTI-SS-B TNP Normal [facility] Comment on above: Performed By: #### L 501.6710, L505.7010, L3100.5450, L101.9900, L500.2500, L100.0100 ####[facility] [address] [place], [address] Absolute lymphocyte countOrd ered By: Mayda Garcia on 09-22-2024 Lymphocytes Auto (Unsp spec) [#/Vol] 1.43 10*3/uL 0.83-4.51 [facility] Anion gap in Serum or Plasma Ordered By: Mayda Garcia on 09-22-2024 Anion gap [Moles/Vol] 11 mmol/L 5-15 [facility] Automated lymphocyte count a s percentage of total leukocytesOrdered By: Jiaenrique Espinozachandana on 09-22-2024 Lymphocytes/100 WBC Auto (Unsp spec) 33.1 % - [facility] BUN/creatinine ratioOrdered By: Mayda Garcia on 09-22-2024 Urea nitrogen/Creatinine [Mass ratio] 26.3 mg/mg High 02-20 [facility] Basic Metabolic Profile (BMP )on 09-22-2024 BUN/CRE 26.3 RATIO High 02-20 [facility] Comment on above: Performed By: #### L 501.6710, L505.7010, L3100.5450, L101.9900, L500.2500, L100.0100 ####[facility] [address] [place], [address] Calcium [Mass/Vol] 8.4 mg/dL Normal 7.6-11.0 [facility] Comment on above: Performed By: #### L 501.6710, L505.7010, L3100.5450, L101.9900, L500.2500, L100.0100 ####[facility] [address] [place], [address] Chloride [Moles/Vol] 108 mmol/L Normal 98-108 [facility] Comment on above: Performed By: #### L 501.6710, L505.7010, L3100.5450, L101.9900, L500.2500, L100.0100 ####[facility] [address] [place], [address] CO2 [Moles/Vol] 21.6 mmol/L Normal 21.0-32.0 [facility] Comment on above: Performed By: #### L 501.6710, L505.7010, L3100.5450, L101.9900, L500.2500, L100.0100 ####[facility] [address] [place], [address] Creatinine [Mass/Vol] 0.86 mg/dL Normal 0.70-1.20 [facility] Comment on above: Performed By: #### L 501.6710, L505.7010, L3100.5450, L101.9900, L500.2500, L100.0100 ####[facility] [address] [place], [address] GAP 11 Normal 5-15 [facility] Comment on above: Performed By: #### L 501.6710, L505.7010, L3100.5450, L101.9900, L500.2500, L100.0100 ####[facility] [address] [place], [address] GFR/1.73 sq M.predicted among non-blacks MDRD (S/P/Bld) [Vol rate/Area] 72 mL/min/{1.73_m2} Normal >60 [facility] Comment on above: Result Comment: mL/m in/1.73m2 CKD-EPI Creatinine Equation (2020) Performed By: #### L 501.6710, L505.7010, L3100.5450, L101.9900, L500.2500, L100.0100 ####[facility] [address] [place], [address] Glucose [Mass/Vol] 105 mg/dL High 70-99 [facility] Comment on above: Performed By: #### L 501.6710, L505.7010, L3100.5450, L101.9900, L500.2500, L100.0100 ####[facility] [address] [place], [address] Potassium [Moles/Vol] 4.1 mmol/L Normal 3.3-5.1 [facility] Comment on above: Performed By: #### L 501.6710, L505.7010, L3100.5450, L101.9900, L500.2500, L100.0100 ####[facility] [address] [place], [address] Sodium [Moles/Vol] 140 mmol/L Normal 133-145 [facility] Comment on above: Performed By: #### L 501.6710, L505.7010, L3100.5450, L101.9900, L500.2500, L100.0100 ####[facility] [address] [place], [address] Urea nitrogen [Mass/Vol] 23 mg/dL High 4-19 [facility] Comment on above: Performed By: #### L 501.6710, L505.7010, L3100.5450, L101.9900, L500.2500, L100.0100 ####[facility] [address] [place], [address] Basophil percentageOrdered B y: Mayda Garcia on 09-22-2024 Basophils/100 WBC (Bld) 0.7 % 0-1 [facility] Bilirubin directOrdered By: Mikhail Esposito on 09-22-2024 Bilirubin.direct [Mass/Vol] 0.15 mg/dL 0.00-0.30 [facility] Bilirubin, totalOrdered By: Mikhail Esposito on 09-22-2024 Bilirubin [Mass/Vol] 0.33 mg/dL 0.00-1.30 [facility] CBC W/Diff, Automatedon 09-02 Absolute Lymph 1.43 X10 3/uL Normal 0.83-4.51 [facility] Comment on above: Performed By: #### L 501.6710, L505.7010, L3100.5450, L101.9900, L500.2500, L100.0100 ####[facility] [address] [place], [address] Absolute Neut 2.4 X10 3/uL Normal 2.0-7.7 [facility] Comment on above: Performed By: #### L 501.6710, L505.7010, L3100.5450, L101.9900, L500.2500, L100.0100 ####[facility] [address] [place], [address] Basophils/100 WBC (Bld) 0.7 % Normal 0-1 [facility] Comment on above: Performed By: #### L 501.6710, L505.7010, L3100.5450, L101.9900, L500.2500, L100.0100 ####[facility] [address] [place], [address] Eosinophils/100 WBC (Bld) 2.3 % Normal 0-5 [facility] Comment on above: Performed By: #### L 501.6710, L505.7010, L3100.5450, L101.9900, L500.2500, L100.0100 ####[facility] [address] [place], [address] Erythrocyte distribution width (RBC) [Ratio] 13.9 % Normal 11.6-14.6 [facility] Comment on above: Performed By: #### L 501.6710, L505.7010, L3100.5450, L101.9900, L500.2500, L100.0100 ####[facility] [address] [place], [address] Hematocrit (Bld) [Volume fraction] 33.7 % Low 37-47 [facility] Comment on above: Performed By: #### L 501.6710, L505.7010, L3100.5450, L101.9900, L500.2500, L100.0100 ####[facility] [address] [place], [address] Hemoglobin (Bld) [Mass/Vol] 11.2 g/dL Low 12.0-15.0 [facility] Comment on above: Performed By: #### L 501.6710, L505.7010, L3100.5450, L101.9900, L500.2500, L100.0100 ####[facility] [address] [place], [address] IG% 0.500 Normal 0.0-0.9 [facility] Comment on above: Result Comment: IG% - Immature Granulocytes (promyelocytes, myelocytes andmetamyelocytes) > 1% indicates that a LEFT SHIFT is Present. Performed By: #### L 501.6710, L505.7010, L3100.5450, L101.9900, L500.2500, L100.0100 ####[facility] [address] [place], [address] Lymphocytes/100 WBC (Bld) 33.1 % Normal 19-41 [facility] Comment on above: Performed By: #### L 501.6710, L505.7010, L3100.5450, L101.9900, L500.2500, L100.0100 ####[facility] [address] [place], [address] MCH (RBC) [Entitic mass] 32.5 pg High 27.0-32.0 [facility] Comment on above: Performed By: #### L 501.6710, L505.7010, L3100.5450, L101.9900, L500.2500, L100.0100 ####[facility] [address] [place], [address] MCHC (RBC) [Mass/Vol] 33.2 g/dL Normal 32-36 [facility] Comment on above: Performed By: #### L 501.6710, L505.7010, L3100.5450, L101.9900, L500.2500, L100.0100 ####[facility] [address] [place], [address] MCV (RBC) [Entitic vol] 97.7 fL Normal 81-99 [facility] Comment on above: Performed By: #### L 501.6710, L505.7010, L3100.5450, L101.9900, L500.2500, L100.0100 ####[facility] [address] [place], [address] Monocytes/100 WBC (Bld) 8.1 % Normal 0-10 [facility] Comment on above: Performed By: #### L 501.6710, L505.7010, L3100.5450, L101.9900, L500.2500, L100.0100 ####[facility] [address] [place], [address] Neutrophils/100 WBC (Bld) 55.3 % Normal 47-70 [facility] Comment on above: Performed By: #### L 501.6710, L505.7010, L3100.5450, L101.9900, L500.2500, L100.0100 ####[facility] [address] [place], [address] Nucleated RBC (Bld) [#/Vol] 0 10*3/uL Normal 0-5 [facility] Comment on above: Performed By: #### L 501.6710, L505.7010, L3100.5450, L101.9900, L500.2500, L100.0100 ####[facility] [address] [place], [address] Platelet mean volume (Bld) [Entitic vol] 12.2 fL High 6.2-12.0 [facility] Comment on above: Performed By: #### L 501.6710, L505.7010, L3100.5450, L101.9900, L500.2500, L100.0100 ####[facility] [address] [place], [address] Platelets (Bld) [#/Vol] 155 10*3/uL Normal 150-450 [facility] Comment on above: Performed By: #### L 501.6710, L505.7010, L3100.5450, L101.9900, L500.2500, L100.0100 ####[facility] [address] [place], [address] RBC (Bld) [#/Vol] 3.45 10*6/uL Low 4.2-5.4 [facility] Comment on above: Performed By: #### L 501.6710, L505.7010, L3100.5450, L101.9900, L500.2500, L100.0100 ####[facility] [address] [place], [address] RDW SD 49.9 fl High 35.1-43.9 [facility] Comment on above: Performed By: #### L 501.6710, L505.7010, L3100.5450, L101.9900, L500.2500, L100.0100 ####[facility] [address] [place], [address] WBC (Bld) [#/Vol] 4.3 10*3/uL Low 4.4-11.0 [facility] Comment on above: Performed By: #### L 501.6710, L505.7010, L3100.5450, L101.9900, L500.2500, L100.0100 ####[facility] [address] [place], [address] CRPon 09-22-2024 C-REACTIVE PROT 3.46 mg/L High 0.0-3.0 [facility] Comment on above: Performed By: #### L 501.6710, L505.7010, L3100.5450, L101.9900, L500.2500, L100.0100 ####[facility] [address] [place], [address] Calculated very low density lipoprotein (VLDL) cholesterol measurementOrdered By: Mikhail Esposito on 09-22-2024 Calculated very low density lipoprotein (VLDL) cholesterol measurement 14 mg/dL 5-40 [facility] Carbon dioxide, total [Moles /volume] in Central venous bloodOrdered By: Mayda Garcia on 09-22-2024 CO2 [Moles/Vol] 21.6 mmol/L 21.0-32.0 [facility] Chloride assayOrdered By: Jia Garcia on 09-22-2024 Chloride [Moles/Vol] 108 mmol/L 98-108 [facility] Eosinophil percentageOrdered By: Mayda Garcia on 09-22-2024 Eosinophils/100 WBC (Bld) 2.3 % 0-5 [facility] Erythrocyte Sed Rateon 09-22 SED RATE 5 mm/hr Normal 0-30 [facility] Comment on above: Performed By: #### L 501.6710, L505.7010, L3100.5450, L101.9900, L500.2500, L100.0100 ####[facility] [address] [place], [place], [address] Erythrocyte distribution wid th ratioOrdered By: Mayda Garcia on 09-22-2024 Erythrocyte distribution width (RBC) [Ratio] 13.9 % 11.6-14.6 [facility] Erythrocyte distribution wid th standard deviationOrdered By: Mayda Garcia on 09-22-2024 Erythrocyte distribution width (RBC) [Ratio] 49.9 fl High 35.1-43.9 [facility] Erythrocyte sedimentation ra teOrdered By: Mayda Garcia on 09-22-2024 ESR (Bld) [Velocity] 5 mm/h 0-30 [facility] Glomerular filtration rate ( GFR) estimation/1.73 sq m using serum, plasma, or whole bOrdered By: Mayda Garcia on 09-22-2024 GFR/1.73 sq M.predicted among non-blacks MDRD (S/P/Bld) [Vol rate/Area] 72 mL/min/{1.73_m2} >60 [facility] Hematocrit Auto (Bld) [Volum e fraction]Ordered By: Mayda Garcia on 09-22-2024 Hematocrit (Bld) [Volume fraction] 33.7 % Low 37-47 [facility] Hemoglobin measurementOrdere d By: Mayda Garcia on 09-22-2024 Hemoglobin (Bld) [Mass/Vol] 11.2 g/dL Low 12.0-15.0 [facility] Immature granulocytes/100 WB C Auto (Bld)Ordered By: Norisboulderconsuelo Garcia on 09-22-2024 Immature granulocytes/100 WBC (Bld) 0.500 % 0.0-0.9 [facility] LDL calc ser/plasOrdered By: Mikhail Esposito on 09-22-2024 Cholesterol in LDL [Mass/Vol] 135 mg/dL [facility] Lipid Profileon 09-22-2024 CHOL:HDL 3.58 Normal [facility] Comment on above: Performed By: #### L 500.4100, L500.3400 ####[facility] [address] [place], [place], [phone] Cholesterol [Mass/Vol] 206 mg/dL High <=200 [facility] Comment on above: Result Comment: Chol esterol level, Desirable <200 mg/dLBorderline high cholesterol 200-239 mg/dLHigh cholesterol >=240 mg/dLRecommendations of the NCEP Adult Treatment Panel for thefollowing risk-cutoff thresholds for the [place] Americanpopulation. Performed By: #### L 500.4100, L500.3400 ####[facility] [address] [place], [place], [phone] Cholesterol in HDL [Mass/Vol] 58 mg/dL Normal [facility] Comment on above: Result Comment: [facility] [employer] onal Cholesterol Education Program (NCEP) guidelines:<40 mg/dL: Low HDL-cholesterol (major risk factor for CHD)>= 60 mg/dL: High HDL-cholesterol (negative risk factor forCHD)HDL-cholesterol is affected by a number of factors, e.g.smoking, exercise, hormones, sex and age. Performed By: #### L 500.4100, L500.3400 ####[facility] [address] [place], [address] Cholesterol in LDL [Mass/Vol] 135 mg/dL Normal [facility] Comment on above: Result Comment: Bord iuyfai=988-353 mg/dL Higher Fdem=338 mg/dL or greater Performed By: #### L 500.4100, L500.3400 ####[facility] [address] [place], [address] Cholesterol in VLDL [Mass/Vol] 14 mg/dL Normal 5-40 [facility] Comment on above: Performed By: #### L 500.4100, L500.3400 ####[facility] [address], [address] Triglyceride [Mass/Vol] 69 mg/dL Normal [facility] Comment on above: Result Comment: The drugs N-Acetylcysteine and Metamizole may falselydepress this assay.Normal range: <150 mg/dLBorderline High: 150-199 mg/dLHigh: 200-499 mg/dLVery High: >500 mg/dL Performed By: #### L 500.4100, L500.3400 ####[facility] [address], [address] Liver Profileon 09-22-2024 Albumin [Mass/Vol] 3.8 g/dL Normal 3.4-4.8 [facility] Comment on above: Performed By: #### L 500.4100, L500.3400 ####[facility] [address] [place], [address] ALK PHOS 71 U/L Normal 35-104 [facility] Comment on above: Performed By: #### L 500.4100, L500.3400 ####[facility] [address], [address] ALT [Catalytic activity/Vol] 19 U/L Normal <=34 [facility] Comment on above: Performed By: #### L 500.4100, L500.3400 ####[facility] [address] [place], [address] AST [Catalytic activity/Vol] 21 U/L Normal <=31 [facility] Comment on above: Performed By: #### L 500.4100, L500.3400 ####[facility] [address] [place], [address] Bilirubin [Mass/Vol] 0.33 mg/dL Normal 0.00-1.30 [facility] Comment on above: Performed By: #### L 500.4100, L500.3400 ####[facility] [address] [place], [address] Bilirubin.direct [Mass/Vol] 0.15 mg/dL Normal 0.00-0.30 [facility] Comment on above: Performed By: #### L 500.4100, L500.3400 ####[facility] [address] [place], [address] Globulin (S) [Mass/Vol] 2.7 g/dL Normal 2.2-4.2 [facility] Comment on above: Performed By: #### L 500.4100, L500.3400 ####[facility] [address] [place], [address] T PROT 6.5 g/dL Normal 5.9-8.4 [facility] Comment on above: Performed By: #### L 500.4100, L500.3400 ####[facility] [address] [place], [address] MCV (mean corpuscular volume ) determinationOrdered By: Mayda Gracia on 09-22-2024 MCV (RBC) [Entitic vol] 97.7 fL 81-99 [facility] Mean corpuscular hemoglobin (MCH) determinationOrdered By: Mayda Garcia on 09-22-2024 MCH (RBC) [Entitic mass] 32.5 pg High 27.0-32.0 [facility] Monocyte percentageOrdered B y: Mayda Suleimantoyachandana on 09-22-2024 Monocytes/100 WBC (Bld) 8.1 % 0-10 [facility] Neutrophil percentageOrdered By: Mayda Garcia on 09-22-2024 Neutrophils/100 WBC (Bld) 55.3 % 47-70 [facility] No Panel InformationOrdered By: Mikhail Apodacaiter on 09-22-2024 21 U/L <32 [facility] Platelet countOrdered By: Jia michellerosemary Garcia on 09-22-2024 Platelets (Bld) [#/Vol] 155 10*3/uL 150-450 [facility] Potassium measurement (mass/ volume)Ordered By: Mayda Garcia on 09-22-2024 Potassium (Unsp spec) [Mass/Vol] 4.1 mmol/L 3.3-5.1 [facility] RBC Auto (Bld) [#/Vol]Ordere d By: Mayda Garcia on 09-22-2024 RBC (Bld) [#/Vol] 3.45 10*6/uL Low 4.2-5.4 [facility] Rheumatoid Factoron 09-23-19 25 RHEUMATOID FAC < 10.0 Normal <15 [facility] Comment on above: Performed By: #### L 501.6710, L505.7010, L3100.5450, L101.9900, L500.2500, L100.0100 ####[facility] [address] [place], [address] Serum DNA double strand anti body assay (units/volume)Ordered By: Mayda Garcia on 09-22-2024 DNA double strand Ab Qn (S) [facility] Serum Scl-70 antibody assay (units/volume)Ordered By: Mayda Garcia on 09-22-2024 SCL-70 extractable nuclear Ab Qn (S) [facility] Serum creatinine measurement (mass/volume)Ordered By: Mayda Garcia on 09-22-2024 Creatinine [Mass/Vol] 0.86 mg/dL 0.70-1.20 [facility] Serum globulin measurementOr dered By: Mikhail Esposito on 09-22-2024 Globulin (S) [Mass/Vol] 2.7 g/dL 2.2-4.2 [facility] Serum glucose measurement (m ass/volume)Ordered By: Mayda Garcia on 09-22-2024 Glucose [Mass/Vol] 105 mg/dL High 70-99 [facility] Serum or plasma C reactive p rotein measurement (mass/volume)Ordered By: Mayda Garcia on 09-22-2024 CRP [Mass/Vol] 3.46 mg/L High 0.0-3.0 [facility] Serum or plasma alanine carvalho otransferase (ALT) measurementOrdered By: Mikhail Esposito on 09-22-2024 ALT [Catalytic activity/Vol] 19 U/L <35 [facility] Serum or plasma albumin loretta urement (mass/volume)Ordered By: Mikhail Esposito on 09-22-2024 Albumin [Mass/Vol] 3.8 g/dL 3.4-4.8 [facility] Serum or plasma alkaline dima sphatase measurementOrdered By: Mikhail Esposito on 09-22-2024 ALP [Catalytic activity/Vol] 71 U/L 35-104 [facility] Serum or plasma calcium loretta urement (mass/volume)Ordered By: Mayda Garcia on 09-22-2024 Calcium [Mass/Vol] 8.4 mg/dL 7.6-11.0 [facility] Serum or plasma cholesterol in HDL measurement (mass/volume)Ordered By: Mikhail Esposito on 09-22-2024 Cholesterol in HDL [Mass/Vol] 58 mg/dL >40 [facility] Serum or plasma cholesterol measurement (mass/volume)Ordered By: Mikhail Esposito on 09-22-2024 Cholesterol [Mass/Vol] 206 mg/dL High <201 [facility] Serum or plasma urea nitroge n measurement (mass/volume)Ordered By: Mayda Garcia on 09-22-2024 Urea nitrogen [Mass/Vol] 23 mg/dL High - [facility] Serum rheumatoid factor dete ctionOrdered By: Jiamichellerosemary Suleimanflores on 09-22-2024 Rheumatoid factor Ql (S) < 10.0 IU/mL <15 [facility] Sodium levelOrdered By: Noris Garcia on 09-22-2024 Sodium [Moles/Vol] 140 mmol/L 133-145 [facility] [facility] Total proteinOrdered By: Fer Esposito on 09-22-2024 Protein [Mass/Vol] 6.5 g/dL 5.9-8.4 [facility] White blood cell (WBC) count Ordered By: Jiaenrique Ibanezflores on 09-22-2024 WBC (Bld) [#/Vol] 4.3 10*3/uL Low 4.4-11.0 [facility] Internal Medicine Office Vis iton 09-21-2024 Internal Medicine Office Visit Normal [facility] Cardiology Visit Reporton Cardiology Visit Report Normal [facility] 12 Lead EKGon 09-16-2024 12 Lead EKG Normal [facility] Absolute lymphocyte countOrd ered By: Azam Frey on 09-16-2024 Lymphocytes Auto (Unsp spec) [#/Vol] 1.40 10*3/uL 0.83-4.51 [facility] Anion gap in Serum or Plasma Ordered By: Azam Frey on 09-16-2024 Anion gap [Moles/Vol] 10 mmol/L 5-15 [facility] Automated lymphocyte count a s percentage of total leukocytesOrdered By: Azam Frey on 09-16-2024 Lymphocytes/100 WBC Auto (Unsp spec) 33.3 % -41 [facility] BUN/creatinine ratioOrdered By: Azam Frey on 09-16-2024 Urea nitrogen/Creatinine [Mass ratio] 28.6 mg/mg High 10- [facility] Basic Metabolic Profile (BMP )on 09-16-2024 BUN/CRE 28.6 RATIO High 02-20 [facility] Comment on above: Performed By: #### L 100.0100, L500.2500, L501.4021, L503.7505 ####[facility] [address] [place], [address] Calcium [Mass/Vol] 8.7 mg/dL Normal 7.6-11.0 [facility] Comment on above: Performed By: #### L 100.0100, L500.2500, L501.4021, L503.7505 ####[facility] [address] [place], [address] Chloride [Moles/Vol] 109 mmol/L High 98-108 [facility] Comment on above: Performed By: #### L 100.0100, L500.2500, L501.4021, L503.7505 ####[facility] [address] [place], [address] CO2 [Moles/Vol] 23.0 mmol/L Normal 21.0-32.0 [facility] Comment on above: Performed By: #### L 100.0100, L500.2500, L501.4021, L503.7505 ####[facility] [address] [place], [address] Creatinine [Mass/Vol] 0.77 mg/dL Normal 0.70-1.20 [facility] Comment on above: Performed By: #### L 100.0100, L500.2500, L501.4021, L503.7505 ####[facility] [address] [place], [address] GAP 10 Normal 5-15 [facility] Comment on above: Performed By: #### L 100.0100, L500.2500, L501.4021, L503.7505 ####[facility] [address] [place], [address] GFR/1.73 sq M.predicted among non-blacks MDRD (S/P/Bld) [Vol rate/Area] 82 mL/min/{1.73_m2} Normal >60 [facility] Comment on above: Result Comment: mL/m in/1.73m2 CKD-EPI Creatinine Equation (2020) Performed By: #### L 100.0100, L500.2500, L501.4021, L503.7505 ####[facility] [address] [place], [address] Glucose [Mass/Vol] 76 mg/dL Normal 70-99 [facility] Comment on above: Performed By: #### L 100.0100, L500.2500, L501.4021, L503.7505 ####[facility] [address] [place], [address] Potassium [Moles/Vol] 3.7 mmol/L Normal 3.3-5.1 [facility] Comment on above: Performed By: #### L 100.0100, L500.2500, L501.4021, L503.7505 ####[facility] [address] [place], [address] Sodium [Moles/Vol] 142 mmol/L Normal 133-145 [facility] Comment on above: Performed By: #### L 100.0100, L500.2500, L501.4021, L503.7505 ####[facility] [address] [place], [address] Urea nitrogen [Mass/Vol] 22 mg/dL High 4-19 [facility] Comment on above: Performed By: #### L 100.0100, L500.2500, L501.4021, L503.7505 ####[facility] [address] [place], [address] Basophil percentageOrdered B y: Azamjerica Frey on 09-16-2024 Basophils/100 WBC (Bld) 0.2 % 0-1 [facility] CBC W/Diff, Automatedon 09-01 Absolute Lymph 1.40 X10 3/uL Normal 0.83-4.51 [facility] Comment on above: Performed By: #### L 100.0100, L500.2500, L501.4021, L503.7505 ####[facility] [address] [place], [address] Absolute Neut 2.3 X10 3/uL Normal 2.0-7.7 [facility] Comment on above: Performed By: #### L 100.0100, L500.2500, L501.4021, L503.7505 ####[facility] [address] [place], [address] Basophils/100 WBC (Bld) 0.2 % Normal 0-1 [facility] Comment on above: Performed By: #### L 100.0100, L500.2500, L501.4021, L503.7505 ####[facility] [address] [place], [address] Eosinophils/100 WBC (Bld) 2.4 % Normal 0-5 [facility] Comment on above: Performed By: #### L 100.0100, L500.2500, L501.4021, L503.7505 ####[facility] [address] [place], [address] Erythrocyte distribution width (RBC) [Ratio] 13.8 % Normal 11.6-14.6 [facility] Comment on above: Performed By: #### L 100.0100, L500.2500, L501.4021, L503.7505 ####[facility] [address] [place], [address] Hematocrit (Bld) [Volume fraction] 25.8 % Low 37-47 [facility] Comment on above: Performed By: #### L 100.0100, L500.2500, L501.4021, L503.7505 ####[facility] [address] [place], [address] Hemoglobin (Bld) [Mass/Vol] 8.6 g/dL Low 12.0-15.0 [facility] Comment on above: Performed By: #### L 100.0100, L500.2500, L501.4021, L503.7505 ####[facility] [address] [place], [address] IG% 0.500 Normal 0.0-0.9 [facility] Comment on above: Result Comment: IG% - Immature Granulocytes (promyelocytes, myelocytes andmetamyelocytes) > 1% indicates that a LEFT SHIFT is Present. Performed By: #### L 100.0100, L500.2500, L501.4021, L503.7505 ####[facility] [address] [place], [address] Lymphocytes/100 WBC (Bld) 33.3 % Normal 19-41 [facility] Comment on above: Performed By: #### L 100.0100, L500.2500, L501.4021, L503.7505 ####[facility] [address] [place], [address] MCH (RBC) [Entitic mass] 32.5 pg High 27.0-32.0 [facility] Comment on above: Performed By: #### L 100.0100, L500.2500, L501.4021, L503.7505 ####[facility] [address] [place], [address] MCHC (RBC) [Mass/Vol] 33.3 g/dL Normal 32-36 [facility] Comment on above: Performed By: #### L 100.0100, L500.2500, L501.4021, L503.7505 ####[facility] [address] [place], [address] MCV (RBC) [Entitic vol] 97.4 fL Normal 81-99 [facility] Comment on above: Performed By: #### L 100.0100, L500.2500, L501.4021, L503.7505 ####[facility] [address] [place], [address] Monocytes/100 WBC (Bld) 8.6 % Normal 0-10 [facility] Comment on above: Performed By: #### L 100.0100, L500.2500, L501.4021, L503.7505 ####[facility] [address] [place], [address] Neutrophils/100 WBC (Bld) 55.0 % Normal 47-70 [facility] Comment on above: Performed By: #### L 100.0100, L500.2500, L501.4021, L503.7505 ####[facility] [address] [place], [address] Nucleated RBC (Bld) [#/Vol] 0 10*3/uL Normal 0-5 [facility] Comment on above: Performed By: #### L 100.0100, L500.2500, L501.4021, L503.7505 ####[facility] [address] [place], [address] Platelet mean volume (Bld) [Entitic vol] 11.6 fL Normal 6.2-12.0 [facility] Comment on above: Performed By: #### L 100.0100, L500.2500, L501.4021, L503.7505 ####[facility] [address] [place], [address] Platelets (Bld) [#/Vol] 117 10*3/uL Low 150-450 [facility] Comment on above: Performed By: #### L 100.0100, L500.2500, L501.4021, L503.7505 ####[facility] [address] [place], [address] RBC (Bld) [#/Vol] 2.65 10*6/uL Low 4.2-5.4 [facility] Comment on above: Performed By: #### L 100.0100, L500.2500, L501.4021, L503.7505 ####[facility] [address] [place], [address] RDW SD 48.9 fl High 35.1-43.9 [facility] Comment on above: Performed By: #### L 100.0100, L500.2500, L501.4021, L503.7505 ####[facility] [address] [place], [address] WBC (Bld) [#/Vol] 4.2 10*3/uL Low 4.4-11.0 [facility] Comment on above: Performed By: #### L 100.0100, L500.2500, L501.4021, L503.7505 ####[facility] [address] [place], [address] Carbon dioxide, total [Moles /volume] in Central venous bloodOrdered By: Azam Frey on 09-16-2024 CO2 [Moles/Vol] 23.0 mmol/L 21.0-32.0 [facility] Chest 1 View (Portable)on Chest 1 View (Portable) Normal [facility] Chloride assayOrdered By: Hugh Frey on 09-16-2024 Chloride [Moles/Vol] 109 mmol/L High 98-108 [facility] Emergency Department Summary on 09-16-2024 Emergency Department Summary Normal [facility] Eosinophil percentageOrdered By: Azam Frey on 09-16-2024 Eosinophils/100 WBC (Bld) 2.4 % 0-5 [facility] Erythrocyte distribution wid th ratioOrdered By: Azam Frey on 09-16-2024 Erythrocyte distribution width (RBC) [Ratio] 13.8 % 11.6-14.6 [facility] Erythrocyte distribution wid th standard deviationOrdered By: Azam Frey on 09-16-2024 Erythrocyte distribution width (RBC) [Ratio] 48.9 fl High 35.1-43.9 [facility] Glomerular filtration rate ( GFR) estimation/1.73 sq m using serum, plasma, or whole bOrdered By: Azam Frey on 09-16-2024 GFR/1.73 sq M.predicted among non-blacks MDRD (S/P/Bld) [Vol rate/Area] 82 mL/min/{1.73_m2} >60 [facility] Hematocrit Auto (Bld) [Volum e fraction]Ordered By: Azam Frey on 09-16-2024 Hematocrit (Bld) [Volume fraction] 25.8 % Low 37-47 [facility] Hemoglobin measurementOrdere d By: Azam Frey on 09-16-2024 Hemoglobin (Bld) [Mass/Vol] 8.6 g/dL Low 12.0-15.0 [facility] Immature granulocytes/100 WB C Auto (Bld)Ordered By: Azam Frey on 09-16-2024 Immature granulocytes/100 WBC (Bld) 0.500 % 0.0-0.9 [facility] L499.0042on 09-16-2024 Trop T High Sen 7 ng/L Normal <=14 [facility] Comment on above: Result Comment: Hemo lysis present, Results??could be affected.?? Performed By: #### L 499.0042 ####[facility] [address] [place], [address] L499.0043on 09-16-2024 Trop T High Sen Normal <=14 [facility] Comment on above: Result Comment: Canc elled via OM: Order cancelled - Patient discharged Performed By: #### L 499.0043 ####[facility] [address] [place], [address] L501.4021on 09-16-2024 Trop T High Sen 8 ng/L Normal <=14 [facility] Comment on above: Performed By: #### L 100.0100, L500.2500, L501.4021, L503.7505 ####[facility] [address] [place], [place], [address] L503.7505on 09-16-2024 Natriuretic peptide B (Bld) [Mass/Vol] 239 pg/mL Normal <=900 [facility] Comment on above: Result Comment: Hear t Failure Unlikely: < 300 pg/mLHeart Failure Likely< 50 Years: > 450 pg/mL50-75 Years: > 900 pg/mL>75 Years: > 1800 pg/mL Performed By: #### L 100.0100, L500.2500, L501.4021, L503.7505 ####[facility] [address] [place], [place], [address] MCV (mean corpuscular volume ) determinationOrdered By: Azam Frey on 09-16-2024 MCV (RBC) [Entitic vol] 97.4 fL 81-99 [facility] Mean corpuscular hemoglobin (MCH) determinationOrdered By: Azam Frey on 09-16-2024 MCH (RBC) [Entitic mass] 32.5 pg High 27.0-32.0 [facility] Monocyte percentageOrdered B y: Azam Frey on 09-16-2024 Monocytes/100 WBC (Bld) 8.6 % 0-10 [facility] Natriuretic peptide.B prohor thai N-Terminal [Mass/volume] in Serum or PlasmaOrdered By: Azam Frey on 09-16-2024 Natriuretic peptide.B prohormone N-Terminal [Mass/Vol] 239 pg/mL <900 [facility] Neutrophil percentageOrdered By: Azam Frey on 09-16-2024 Neutrophils/100 WBC (Bld) 55.0 % 47-70 [facility] Platelet countOrdered By: Hugh Frey on 09-16-2024 Platelets (Bld) [#/Vol] 117 10*3/uL Low 150-450 [facility] Potassium measurement (mass/ volume)Ordered By: Azam Frey on 09-16-2024 Potassium (Unsp spec) [Mass/Vol] 3.7 mmol/L 3.3-5.1 [facility] RBC Auto (Bld) [#/Vol]Ordere d By: Azam Frey on 09-16-2024 RBC (Bld) [#/Vol] 2.65 10*6/uL Low 4.2-5.4 [facility] Serum creatinine measurement (mass/volume)Ordered By: Azam Frey on 09-16-2024 Creatinine [Mass/Vol] 0.77 mg/dL 0.70-1.20 [facility] Serum glucose measurement (m ass/volume)Ordered By: Azam Frye on 09-16-2024 Glucose [Mass/Vol] 76 mg/dL 70-99 [facility] Serum or plasma calcium loretta urement (mass/volume)Ordered By: Azam Frey on 09-16-2024 Calcium [Mass/Vol] 8.7 mg/dL 7.6-11.0 [facility] Serum or plasma urea nitroge n measurement (mass/volume)Ordered By: Azam Frey on 09-16-2024 Urea nitrogen [Mass/Vol] 22 mg/dL High 4-19 [facility] Sodium levelOrdered By: Azam Frey on 09-16-2024 Sodium [Moles/Vol] 142 mmol/L 133-145 [facility] Stool Occult Blood iFOBon STOB Negative Normal [facility] Comment on above: Performed By: #### M 100.7900 ####[facility] [address] [place], [place], [address] Stool gastrointestinal hemog lobin detection by immunologic methodOrdered By: Azam Frey on 09-16-2024 Lower GI hemoglobin IA Ql (Stl) [facility] Troponin T.cardiac [Mass/vol ume] in Serum or Plasma by High sensitivity methodOrdered By: Azam Frey on 09-16-2024 Troponin T.cardiac High sensitivity method [Mass/Vol] 7 ng/L <14 [facility] Troponin T.cardiac High sensitivity method [Mass/Vol] 8 ng/L <14 [facility] White blood cell (WBC) count Ordered By: Azam Frey on 09-16-2024 WBC (Bld) [#/Vol] 4.2 10*3/uL Low 4.4-11.0 [facility] Internal Medicine Office Vis iton 08-10-2024 Internal Medicine Office Visit Normal [facility] No Panel InformationOrdered By: Mayda Garcia on 08-10-2024 6.4 % High 4.2-6.3 [facility] Chest PA and Lateralon 07-15 Chest PA and Lateral Normal [facility] Emergency Department Summary on 07-15-2024 Emergency Department Summary Normal [facility] 12 Lead EKGon 07-14-2024 12 Lead EKG Normal [facility] Absolute lymphocyte countOrd ered By: Ulisses Chan on 07-14-2024 Lymphocytes Auto (Unsp spec) [#/Vol] 1.82 10*3/uL 0.83-4.51 [facility] Absolute neutrophil countOrd ered By: Ulisses Chan on 07-14-2024 Absolute neutrophil count 2.4 X10^3/uL 2.0-7.7 [facility] Anion gap [Moles/Vol]Ordered By: Ulisses Chan on 07-14-2024 Anion gap in Serum or Plasma 12 09-15 [facility] Anion gap in Serum or Plasma Ordered By: Ulisses Chan on 07-14-2024 Anion gap [Moles/Vol] 12 mmol/L 09-15 [facility] Automated lymphocyte count a s percentage of total leukocytesOrdered By: Ulisses Chan on 07-14-2024 Lymphocytes/100 WBC Auto (Unsp spec) 38.7 % [facility] BUN/creatinine ratioOrdered By: Ulisses Chan on 07-14-2024 Urea nitrogen/Creatinine [Mass ratio] 21.2 mg/mg High 10- [facility] BUN/creatinine ratio 21.2 RATIO High 10-20 [facility] Basic Metabolic Profile (BMP )on 07-14-2024 BUN/CRE 21.2 RATIO High 02-20 [facility] Comment on above: Performed By: #### L 100.0100, L500.2500, L501.4021 ####[facility] [address] [place], [address] Calcium [Mass/Vol] 9.4 mg/dL Normal 7.6-11.0 [facility] Comment on above: Performed By: #### L 100.0100, L500.2500, L501.4021 ####[facility] [address] [place], [address] Chloride [Moles/Vol] 106 mmol/L Normal 98-108 [facility] Comment on above: Performed By: #### L 100.0100, L500.2500, L501.4021 ####[facility] [address] [place], [address] CO2 [Moles/Vol] 23.7 mmol/L Normal 21.0-32.0 [facility] Comment on above: Performed By: #### L 100.0100, L500.2500, L501.4021 ####[facility] [address] [place], [address] Creatinine [Mass/Vol] 0.94 mg/dL Normal 0.70-1.20 [facility] Comment on above: Performed By: #### L 100.0100, L500.2500, L501.4021 ####[facility] [address] [place], [address] ECRCL 52.46 ml/min Normal 50-250 [facility] Comment on above: Performed By: #### L 100.0100, L500.2500, L501.4021 ####[facility] [address] [place], [address] GAP 12 Normal 5-15 [facility] Comment on above: Performed By: #### L 100.0100, L500.2500, L501.4021 ####[facility] [address] [place], [address] GFR/1.73 sq M.predicted among non-blacks MDRD (S/P/Bld) [Vol rate/Area] 65 mL/min/{1.73_m2} Normal >60 [facility] Comment on above: Result Comment: mL/m in/1.73m2 CKD-EPI Creatinine Equation (2020) Performed By: #### L 100.0100, L500.2500, L501.4021 ####[facility] [address] [place], [address] Glucose [Mass/Vol] 141 mg/dL High 70-99 [facility] Comment on above: Performed By: #### L 100.0100, L500.2500, L501.4021 ####[facility] [address] [place], [address] Potassium [Moles/Vol] 3.9 mmol/L Normal 3.3-5.1 [facility] Comment on above: Performed By: #### L 100.0100, L500.2500, L501.4021 ####[facility] [address] [place], [address] Sodium [Moles/Vol] 142 mmol/L Normal 133-145 [facility] Comment on above: Performed By: #### L 100.0100, L500.2500, L501.4021 ####[facility] [address] [place], [address] Urea nitrogen [Mass/Vol] 20 mg/dL High 4-19 [facility] Comment on above: Performed By: #### L 100.0100, L500.2500, L501.4021 ####[facility] [address] [place], [address] Basophil percentageOrdered B y: Ulisses Le on 07-14-2024 Basophils/100 WBC (Bld) 0.2 % 0-1 [facility] Basophil percentage 0.2 % 0-1 [facility] CBC W/Diff, Automatedon 07-02 Absolute Lymph 1.82 X10 3/uL Normal 0.83-4.51 [facility] Comment on above: Performed By: #### L 100.0100, L500.2500, L501.4021 ####[facility] [address] [place], [address] Absolute Neut 2.4 X10 3/uL Normal 2.0-7.7 [facility] Comment on above: Performed By: #### L 100.0100, L500.2500, L501.4021 ####[facility] [address] [place], [address] Basophils/100 WBC (Bld) 0.2 % Normal 0-1 [facility] Comment on above: Performed By: #### L 100.0100, L500.2500, L501.4021 ####[facility] [address] [place], [address] Eosinophils/100 WBC (Bld) 1.7 % Normal 0-5 [facility] Comment on above: Performed By: #### L 100.0100, L500.2500, L501.4021 ####[facility] [address] [place], [address] Erythrocyte distribution width (RBC) [Ratio] 13.2 % Normal 11.6-14.6 [facility] Comment on above: Performed By: #### L 100.0100, L500.2500, L501.4021 ####[facility] [address] [place], [address] Hematocrit (Bld) [Volume fraction] 35.2 % Low 37-47 [facility] Comment on above: Performed By: #### L 100.0100, L500.2500, L501.4021 ####[facility] [address] [place], [address] Hemoglobin (Bld) [Mass/Vol] 11.8 g/dL Low 12.0-15.0 [facility] Comment on above: Performed By: #### L 100.0100, L500.2500, L501.4021 ####[facility] [address] [place], [address] IG% 0.200 Normal 0.0-0.9 [facility] Comment on above: Result Comment: IG% - Immature Granulocytes (promyelocytes, myelocytes andmetamyelocytes) > 1% indicates that a LEFT SHIFT is Present. Performed By: #### L 100.0100, L500.2500, L501.4021 ####[facility] [address] [place], [address] Lymphocytes/100 WBC (Bld) 38.7 % Normal 19-41 [facility] Comment on above: Performed By: #### L 100.0100, L500.2500, L501.4021 ####[facility] [address] [place], [address] MCH (RBC) [Entitic mass] 32.3 pg High 27.0-32.0 [facility] Comment on above: Performed By: #### L 100.0100, L500.2500, L501.4021 ####[facility] [address] [place], [address] MCHC (RBC) [Mass/Vol] 33.5 g/dL Normal 32-36 [facility] Comment on above: Performed By: #### L 100.0100, L500.2500, L501.4021 ####[facility] [address] [place], [address] MCV (RBC) [Entitic vol] 96.4 fL Normal 81-99 [facility] Comment on above: Performed By: #### L 100.0100, L500.2500, L501.4021 ####[facility] [address] [place], [address] Monocytes/100 WBC (Bld) 8.1 % Normal 0-10 [facility] Comment on above: Performed By: #### L 100.0100, L500.2500, L501.4021 ####[facility] [address] [place], [address] Neutrophils/100 WBC (Bld) 51.1 % Normal 47-70 [facility] Comment on above: Performed By: #### L 100.0100, L500.2500, L501.4021 ####[facility] [address] [place], [address] Nucleated RBC (Bld) [#/Vol] 0 10*3/uL Normal 0-5 [facility] Comment on above: Performed By: #### L 100.0100, L500.2500, L501.4021 ####[facility] [address] [place], [address] Platelet mean volume (Bld) [Entitic vol] 10.8 fL Normal 6.2-12.0 [facility] Comment on above: Performed By: #### L 100.0100, L500.2500, L501.4021 ####[facility] [address] [place], [address] Platelets (Bld) [#/Vol] 208 10*3/uL Normal 150-450 [facility] Comment on above: Performed By: #### L 100.0100, L500.2500, L501.4021 ####[facility] [address] [place], [address] RBC (Bld) [#/Vol] 3.65 10*6/uL Low 4.2-5.4 [facility] Comment on above: Performed By: #### L 100.0100, L500.2500, L501.4021 ####[facility] [address] [place], [address] RDW SD 47.2 fl High 35.1-43.9 [facility] Comment on above: Performed By: #### L 100.0100, L500.2500, L501.4021 ####[facility] [address] [place], [address] WBC (Bld) [#/Vol] 4.7 10*3/uL Normal 4.4-11.0 [facility] Comment on above: Performed By: #### L 100.0100, L500.2500, L501.4021 ####[facility] [address] [place], [address] Calcium [Mass/Vol]Ordered By : Ulisses Chan on 07-14-2024 Serum or plasma calcium measurement (mass/volume) 9.4 mg/dL 7.6-11.0 [facility] Carbon dioxide, total [Moles /volume] in Central venous bloodOrdered By: Ulisses Chan on 07-14-2024 CO2 [Moles/Vol] 23.7 mmol/L 21.0-32.0 [facility] Carbon dioxide, total [Moles/volume] in Central venous blood 23.7 mmol/L 21.0-32.0 [facility] Chest without Contraston Chest without Contrast Normal [facility] Chloride assayOrdered By: Margariot Chan on 07-14-2024 Chloride [Moles/Vol] 106 mmol/L 98-108 [facility] Chloride assay 106 mmol/L 98-108 [facility] Creatinine [Mass/Vol]Ordered By: Ulisses Chan on 07-14-2024 Serum creatinine measurement (mass/volume) 0.94 mg/dL 0.70-1.20 [facility] Emergency Department Summary on 07-14-2024 Emergency Department Summary Normal [facility] Eosinophil percentageOrdered By: Ulisses Chan on 07-14-2024 Eosinophils/100 WBC (Bld) 1.7 % 0-5 [facility] Eosinophil percentage 1.7 % 0-5 [facility] Erythrocyte distribution wid th (RBC) [Entitic vol]Ordered By: Ulisses Chan on 07-14-2024 Erythrocyte distribution width standard deviation 47.2 fl High 35.1-43.9 [facility] Erythrocyte distribution wid th (RBC) [Ratio]Ordered By: Ulisses Chan on 07-14-2024 Erythrocyte distribution width ratio 13.2 % 11.6-14.6 [facility] Erythrocyte distribution wid th ratioOrdered By: Ulisses Chan on 07-14-2024 Erythrocyte distribution width (RBC) [Ratio] 13.2 % 11.6-14.6 [facility] Erythrocyte distribution wid th standard deviationOrdered By: Ulisses Chan on 07-14-2024 Erythrocyte distribution width (RBC) [Ratio] 47.2 fl High 35.1-43.9 [facility] Estimation of creatinine carl aranceOrdered By: Ulisses Chan on 07-14-2024 Estimation of creatinine clearance 52.46 ml/min 50-250 [facility] GFR/1.73 sq M.predicted leland g non-blacks MDRD (S/P/Bld) [Vol rate/Area]Ordered By: Ulisses Chan on 07-14-2024 Glomerular filtration rate (GFR) estimation/1.73 sq m using serum, plasma, or whole b 65 >60 [facility] Glomerular filtration rate ( GFR) estimation/1.73 sq m using serum, plasma, or whole bOrdered By: Ulisses Chan on 07-14-2024 GFR/1.73 sq M.predicted among non-blacks MDRD (S/P/Bld) [Vol rate/Area] 65 mL/min/{1.73_m2} >60 [facility] Glucose [Mass/Vol]Ordered By : Ulisses Chan on 07-14-2024 Serum glucose measurement (mass/volume) 141 mg/dL High 70-99 [facility] Hematocrit Auto (Bld) [Volum e fraction]Ordered By: Ulisses Chan on 07-14-2024 Hematocrit (Bld) [Volume fraction] 35.2 % Low 37-47 [facility] Automated blood hematocrit (percentage) 35.2 % Low 37-47 [facility] Hemoglobin measurementOrdere d By: Ulisses Chan on 07-14-2024 Hemoglobin (Bld) [Mass/Vol] 11.8 g/dL Low 12.0-15.0 [facility] Hemoglobin measurement 11.8 g/dL Low 12.0-15.0 [facility] Immature granulocytes/100 WB C Auto (Bld)Ordered By: Ulisses Chan on 07-14-2024 Immature granulocytes/100 WBC (Bld) 0.200 % 0.0-0.9 [facility] Automated immature granulocyte percentage 0.200 % 0.0-0.9 [facility] L499.0042on 07-14-2024 Trop T High Sen 11 ng/L Normal <=14 [facility] Comment on above: Performed By: #### L 499.0042 ####[facility] [address] [place], [address] L499.0043on 07-14-2024 Trop T High Sen Normal <=14 [facility] Comment on above: Result Comment: NO S PECIMEN COLLECTED. PATIENT DEPARTED ED Performed By: #### L 499.0043 ####[facility] [address] [place], [address] L501.4021on 07-14-2024 Trop T High Sen 9 ng/L Normal <=14 [facility] Comment on above: Performed By: #### L 100.0100, L500.2500, L501.4021 ####[facility] [address] [place], [address] Lymphocytes Auto (Unsp spec) [#/Vol]Ordered By: Ulisses Chan on 07-14-2024 Absolute lymphocyte count 1.82 X10^3/uL 0.83-4.51 [facility] Lymphocytes/100 WBC Auto (Un sp spec)Ordered By: Ulisses Chan on 07-14-2024 Automated lymphocyte count as percentage of total leukocytes 38.7 % 19-41 [facility] MCV (RBC) [Entitic vol]Order ed By: Ulisses Chan on 07-14-2024 MCV (mean corpuscular volume) determination 96.4 fL 81-99 [facility] MCV (mean corpuscular volume ) determinationOrdered By: Ulisses Chan on 07-14-2024 MCV (RBC) [Entitic vol] 96.4 fL 81-99 [facility] Mean corpuscular hemoglobin (MCH) determinationOrdered By: Ulisses Chan on 07-14-2024 MCH (RBC) [Entitic mass] 32.3 pg High 27.0-32.0 [facility] Mean corpuscular hemoglobin (MCH) determination 32.3 pg High 27.0-32.0 [facility] Mean corpuscular hemoglobin concentration (MCHC) determinationOrdered By: Ulisses Chan on 07-14-2024 Mean corpuscular hemoglobin concentration (MCHC) determination 33.5 g/dL 32-36 [facility] Mean platelet volume determi nationOrdered By: Ulisses Chan on 07-14-2024 Mean platelet volume determination 10.8 fl 6.2-12.0 [facility] Monocyte percentageOrdered B y: Ulisses Chan on 07-14-2024 Monocytes/100 WBC (Bld) 8.1 % 0-10 [facility] Monocyte percentage 8.1 % 0-10 [facility] Neutrophil percentageOrdered By: Ulisses Chan on 07-14-2024 Neutrophils/100 WBC (Bld) 51.1 % 47-70 [facility] Neutrophil percentage 51.1 % 47-70 [facility] No Panel InformationOrdered By: Ulisses Chan on 07-14-2024 9 ng/L <14 [facility] Nucleated red blood cell per centageOrdered By: Ulisses Chan on 07-14-2024 Nucleated red blood cell percentage 0 % 0-5 [facility] Platelet countOrdered By: Margarito Chan on 07-14-2024 Platelets (Bld) [#/Vol] 208 10*3/uL 150-450 [facility] Platelet count 208 K/mm3 150-450 [facility] Potassium (Unsp spec) [Mass/ Vol]Ordered By: Ulisses Chan on 07-14-2024 Potassium measurement (mass/volume) 3.9 mmol/L 3.3-5.1 [facility] Potassium measurement (mass/ volume)Ordered By: Ulisses Chan on 07-14-2024 Potassium (Unsp spec) [Mass/Vol] 3.9 mmol/L 3.3-5.1 [facility] RBC Auto (Bld) [#/Vol]Ordere d By: Ulisses Chan on 07-14-2024 RBC (Bld) [#/Vol] 3.65 10*6/uL Low 4.2-5.4 [facility] Automated blood erythrocyte count 3.65 M/mm3 Low 4.2-5.4 [facility] Serum creatinine measurement (mass/volume)Ordered By: Ulisses Chan on 07-14-2024 Creatinine [Mass/Vol] 0.94 mg/dL 0.70-1.20 [facility] Serum glucose measurement (m ass/volume)Ordered By: Ulisses Chan on 07-14-2024 Glucose [Mass/Vol] 141 mg/dL High 70-99 [facility] Serum or plasma calcium loretta urement (mass/volume)Ordered By: Ulisses Chan on 07-14-2024 Calcium [Mass/Vol] 9.4 mg/dL 7.6-11.0 [facility] Serum or plasma urea nitroge n measurement (mass/volume)Ordered By: Ulisses Chan on 07-14-2024 Urea nitrogen [Mass/Vol] 20 mg/dL High 08-20 [facility] Sodium levelOrdered By: Ulisses Chan on 07-14-2024 Sodium [Moles/Vol] 142 mmol/L 133-145 [facility] Sodium level 142 mmol/L 133-145 [facility] Troponin T.cardiac High sens itivity method [Mass/Vol]Ordered By: Ulisses Chan on 07-14-2024 Troponin T.cardiac [Mass/volume] in Serum or Plasma by High sensitivity method 11 ng/L <14 [facility] Troponin T.cardiac [Mass/vol ume] in Serum or Plasma by High sensitivity methodOrdered By: Ulisses Chan on 07-14-2024 Troponin T.cardiac High sensitivity method [Mass/Vol] 11 ng/L <14 [facility] Urea nitrogen [Mass/Vol]Orde red By: Ulisses Chan on 07-14-2024 Serum or plasma urea nitrogen measurement (mass/volume) 20 mg/dL High 08-20 [facility] White blood cell (WBC) count Ordered By: Ulisses Chan on 07-14-2024 WBC (Bld) [#/Vol] 4.7 10*3/uL 4.4-11.0 [facility] White blood cell (WBC) count 4.7 K/mm3 4.4-11.0 [facility] Office Visit Reporton 2024 Office Visit Report Normal [facility] ALP [Catalytic activity/Vol] Ordered By: Yee Rowland on 06-22-2024 Serum or plasma alkaline phosphatase measurement 60 U/L 45-117 [facility] ALT [Catalytic activity/Vol] Ordered By: Yee Rowland on 06-22-2024 Serum or plasma alanine aminotransferase (ALT) measurement 22 U/L 13-56 [facility] Absolute lymphocyte countOrd ered By: Yeejazlyn Rowland on 06-22-2024 Lymphocytes Auto (Unsp spec) [#/Vol] 1.44 10*3/uL 0.83-4.51 [facility] Absolute neutrophil countOrd ered By: Yee Rowland on 06-22-2024 Absolute neutrophil count 2.0 X10^3/uL 2.0-7.7 [facility] Albumin [Mass/Vol]Ordered By : Yeejazlyn Rowland on 06-22-2024 Serum or plasma albumin measurement (mass/volume) 3.1 g/dL Low 3.2-5.0 [facility] Albumin to globulin ratioOrd ered By: [facility] Kashif on 06-22-2024 Albumin to globulin ratio 0.9 RATIO 0.9-2.4 [facility] Automated lymphocyte count a s percentage of total leukocytesOrdered By: Yee Rowland on 06-22-2024 Lymphocytes/100 WBC Auto (Unsp spec) 37.7 % 19-41 [facility] Basophil percentageOrdered B y: Yee Rowland on 06-22-2024 Basophils/100 WBC (Bld) 0.5 % 0-1 [facility] Basophil percentage 0.5 % 0-1 [facility] Bilirubin, totalOrdered By: Yee Rowland on 06-22-2024 Bilirubin [Mass/Vol] 0.40 mg/dL 0.20-1.00 [facility] Bilirubin, total 0.40 mg/dL 0.20-1.00 [facility] Blood urea nitrogen (BUN)/cr eatinine ratioOrdered By: [facility] Kashif on 06-22-2024 Blood urea nitrogen (BUN)/creatinine ratio 26.2 RATIO High 10-20 [facility] CBC W/Diff, Automatedon 06-04 Absolute Lymph 1.44 X10 3/uL Normal 0.83-4.51 [facility] Comment on above: Performed By: #### L 500.4050, L100.0100 ####[facility] [address] [place], [address] Absolute Neut 2.0 X10 3/uL Normal 2.0-7.7 [facility] Comment on above: Performed By: #### L 500.4050, L100.0100 ####[facility] [address] [place], [address] Basophils/100 WBC (Bld) 0.5 % Normal 0-1 [facility] Comment on above: Performed By: #### L 500.4050, L100.0100 ####[facility] [address] [place], [address] Eosinophils/100 WBC (Bld) 2.6 % Normal 0-5 [facility] Comment on above: Performed By: #### L 500.4050, L100.0100 ####[facility] [address] [place], [address] Erythrocyte distribution width (RBC) [Ratio] 13.4 % Normal 11.6-14.6 [facility] Comment on above: Performed By: #### L 500.4050, L100.0100 ####[facility] [address] [place], [address] Hematocrit (Bld) [Volume fraction] 34.8 % Low 37-47 [facility] Comment on above: Performed By: #### L 500.4050, L100.0100 ####[facility] [address] [place], [address] Hemoglobin (Bld) [Mass/Vol] 11.5 g/dL Low 12.0-15.0 [facility] Comment on above: Performed By: #### L 500.4050, L100.0100 ####[facility] [address] [place], [address] IG% 0.300 Normal 0.0-0.9 [facility] Comment on above: Result Comment: IG% - Immature Granulocytes (promyelocytes, myelocytes andmetamyelocytes) > 1% indicates that a LEFT SHIFT is Present. Performed By: #### L 500.4050, L100.0100 ####[facility] [address] [place], [address] Lymphocytes/100 WBC (Bld) 37.7 % Normal 19-41 [facility] Comment on above: Performed By: #### L 500.4050, L100.0100 ####[facility] [address] [place], [address] MCH (RBC) [Entitic mass] 32.3 pg High 27.0-32.0 [facility] Comment on above: Performed By: #### L 500.4050, L100.0100 ####[facility] [address] [place], [address] MCHC (RBC) [Mass/Vol] 33.0 g/dL Normal 32-36 [facility] Comment on above: Performed By: #### L 500.4050, L100.0100 ####[facility] [address] [place], [address] MCV (RBC) [Entitic vol] 97.8 fL Normal 81-99 [facility] Comment on above: Performed By: #### L 500.4050, L100.0100 ####[facility] [address] [place], [address] Monocytes/100 WBC (Bld) 7.1 % Normal 0-10 [facility] Comment on above: Performed By: #### L 500.4050, L100.0100 ####[facility] [address] [place], [address] Neutrophils/100 WBC (Bld) 51.8 % Normal 47-70 [facility] Comment on above: Performed By: #### L 500.4050, L100.0100 ####[facility] [address] [place], [address] Nucleated RBC (Bld) [#/Vol] 0 10*3/uL Normal 0-5 [facility] Comment on above: Performed By: #### L 500.4050, L100.0100 ####[facility] [address] [place], [address] Platelet mean volume (Bld) [Entitic vol] 11.1 fL Normal 6.2-12.0 [facility] Comment on above: Performed By: #### L 500.4050, L100.0100 ####[facility] [address] [place], [address] Platelets (Bld) [#/Vol] 192 10*3/uL Normal 150-450 [facility] Comment on above: Performed By: #### L 500.4050, L100.0100 ####[facility] [address] [place], [address] RBC (Bld) [#/Vol] 3.56 10*6/uL Low 4.2-5.4 [facility] Comment on above: Performed By: #### L 500.4050, L100.0100 ####[facility] [address] [place], [address] RDW SD 47.8 fl High 35.1-43.9 [facility] Comment on above: Performed By: #### L 500.4050, L100.0100 ####[facility] [address] [place], [address] WBC (Bld) [#/Vol] 3.8 10*3/uL Low 4.4-11.0 [facility] Comment on above: Performed By: #### L 500.4050, L100.0100 ####[facility] [address] [place], [address] Calcium [Mass/Vol]Ordered By : Yee Rowladn on 06-22-2024 Serum or plasma calcium measurement (mass/volume) 8.7 mg/dL 8.5-10.1 [facility] Carbon dioxide measurementOr dered By: Yee Rowland on 06-22-2024 CO2 [Moles/Vol] 25.0 mmol/L 21.0-32.0 [facility] Carbon dioxide measurement 25.0 mmol/L 21.0-32.0 [facility] Chloride measurementOrdered By: Yee Rowland on 06-22-2024 Chloride [Moles/Vol] 110 mmol/L High 98-107 [facility] Chloride measurement 110 mmol/L High 98-107 [facility] Comprehensive Metabolic Prof ilon 06-22-2024 Albumin [Mass/Vol] 3.1 g/dL Low 3.2-5.0 [facility] Comment on above: Performed By: #### L 500.4050, L100.0100 ####[facility] [address] [place], [address] Albumin/Globulin [Mass ratio] 0.9 {ratio} Normal 0.9-2.4 [facility] Comment on above: Performed By: #### L 500.4050, L100.0100 ####[facility] [address] [place], [address] ALK P 60 U/L Normal 45-117 [facility] Comment on above: Performed By: #### L 500.4050, L100.0100 ####[facility] [address] [place], [address] ALT [Catalytic activity/Vol] 22 U/L Normal 13-56 [facility] Comment on above: Performed By: #### L 500.4050, L100.0100 ####[facility] [address], [address] AST [Catalytic activity/Vol] 18 U/L Normal 15-37 [facility] Comment on above: Performed By: #### L 500.4050, L100.0100 ####[facility] [address] [place], [address] Bilirubin [Mass/Vol] 0.40 mg/dL Normal 0.20-1.00 [facility] Comment on above: Result Comment: For patients on eltrombopag therapy, use of Dimension [place] TBIL is not recommended. Performed By: #### L 500.4050, L100.0100 ####[facility] [address] [place], [address] BUN/CRE 26.2 RATIO High 10-20 [facility] Comment on above: Performed By: #### L 500.4050, L100.0100 ####[facility] [address] [place], [address] CA,Total 8.7 mg/dL Normal 8.5-10.1 [facility] Comment on above: Performed By: #### L 500.4050, L100.0100 ####[facility] [address] [place], [address] Chloride [Moles/Vol] 110 mmol/L High 98-107 [facility] Comment on above: Performed By: #### L 500.4050, L100.0100 ####[facility] [address] [place], [address] CO2 [Moles/Vol] 25.0 mmol/L Normal 21.0-32.0 [facility] Comment on above: Performed By: #### L 500.4050, L100.0100 ####[facility] [address] [place], [address] Creatinine [Mass/Vol] 0.88 mg/dL Normal 0.55-1.02 [facility] Comment on above: Result Comment: The validity of the calculated GFR GFRAA in patients over70 years has not been determined. Clinical correlation isessential. Performed By: #### L 500.4050, L100.0100 ####[facility] [address] [place], [address] EST GFR - AA 82 mL/min Normal >60 [facility] Comment on above: Result Comment: Afri can Maltese GFR Calc Performed By: #### L 500.4050, L100.0100 ####[facility] [address] [place], [address] GAP 6 Normal 5-15 [facility] Comment on above: Performed By: #### L 500.4050, L100.0100 ####[facility] [address] [place], [address] GFR/1.73 sq M.predicted among non-blacks MDRD (S/P/Bld) [Vol rate/Area] 68 mL/min/{1.73_m2} Normal >60 [facility] Comment on above: Result Comment: Non- GFR Calc Performed By: #### L 500.4050, L100.0100 ####[facility] [address] [place], [address] Globulin (S) [Mass/Vol] 3.5 g/dL Normal 2.2-4.2 [facility] Comment on above: Performed By: #### L 500.4050, L100.0100 ####[facility] [address] [place], [address] Glucose [Mass/Vol] 103 mg/dL Normal 74-106 [facility] Comment on above: Result Comment: Fast ing Glucose result from 100 to 125 mg/dLsuggests IMPAIRED HOMEOSTASIS per A.D.A. criteria. Performed By: #### L 500.4050, L100.0100 ####[facility] [address] [place], [address] Potassium [Moles/Vol] 4.1 mmol/L Normal 3.5-5.1 [facility] Comment on above: Performed By: #### L 500.4050, L100.0100 ####[facility] [address] [place], [address] Sodium [Moles/Vol] 141 mmol/L Normal 136-145 [facility] Comment on above: Performed By: #### L 500.4050, L100.0100 ####[facility] [address] [place], [address] T PROT 6.6 g/dL Normal 6.4-8.2 [facility] Comment on above: Performed By: #### L 500.4050, L100.0100 ####[facility] [address] [place], [address] Urea nitrogen [Mass/Vol] 23 mg/dL High 7-18 [facility] Comment on above: Performed By: #### L 500.4050, L100.0100 ####[facility] [address] [place], [address] Creatinine [Mass/Vol]Ordered By: Yee Rowland on 06-22-2024 Serum or plasma creatinine measurement (mass/volume) 0.88 mg/dL 0.55-1.02 [facility] Eosinophil percentageOrdered By: Yee Rowland on 06-22-2024 Eosinophils/100 WBC (Bld) 2.6 % 0-5 [facility] Eosinophil percentage 2.6 % 0-5 [facility] Erythrocyte distribution wid th (RBC) [Entitic vol]Ordered By: Yee Rowland on 06-22-2024 Erythrocyte distribution width standard deviation 47.8 fl High 35.1-43.9 [facility] Erythrocyte distribution wid th (RBC) [Ratio]Ordered By: Yee Rowland on 06-22-2024 Erythrocyte distribution width ratio 13.4 % 11.6-14.6 [facility] Erythrocyte distribution wid th ratioOrdered By: Yee Rowland on 06-22-2024 Erythrocyte distribution width (RBC) [Ratio] 13.4 % 11.6-14.6 [facility] Erythrocyte distribution wid th standard deviationOrdered By: Yee Rowland on 06-22-2024 Erythrocyte distribution width (RBC) [Ratio] 47.8 fl High 35.1-43.9 [facility] Estimated glomerular filtrat ion rate (GFR) AmericanOrdered By: Yee Rowland on 06-22-2024 Estimated glomerular filtration rate (GFR) 82 mL/min >60 [facility] Glomerular filtration rate ( GFR) estimationOrdered By: Yee Rowland on 06-22-2024 GFR/1.73 sq M.predicted among non-blacks MDRD (S/P/Bld) [Vol rate/Area] 68 mL/min/{1.73_m2} >60 [facility] Glomerular filtration rate (GFR) estimation 68 mL/min >60 [facility] Glucose measurementOrdered B y: Yee Rowland on 06-22-2024 Glucose [Mass/Vol] 103 mg/dL 74-106 [facility] Glucose measurement 103 mg/dL 74-106 [facility] Hematocrit Auto (Bld) [Volum e fraction]Ordered By: Yee Rowland on 06-22-2024 Hematocrit (Bld) [Volume fraction] 34.8 % Low 37-47 [facility] Automated blood hematocrit (percentage) 34.8 % Low 37-47 [facility] Hemoglobin measurementOrdere d By: Yee Rowland on 06-22-2024 Hemoglobin (Bld) [Mass/Vol] 11.5 g/dL Low 12.0-15.0 [facility] Hemoglobin measurement 11.5 g/dL Low 12.0-15.0 [facility] Immature granulocytes/100 WB C Auto (Bld)Ordered By: Yee Rowland on 06-22-2024 Immature granulocytes/100 WBC (Bld) 0.300 % 0.0-0.9 [facility] Automated immature granulocyte percentage 0.300 % 0.0-0.9 [facility] Lymphocytes Auto (Unsp spec) [#/Vol]Ordered By: Yee Rowland on 06-22-2024 Absolute lymphocyte count 1.44 X10^3/uL 0.83-4.51 [facility] Lymphocytes/100 WBC Auto (Un sp spec)Ordered By: Yee Rowland on 06-22-2024 Automated lymphocyte count as percentage of total leukocytes 37.7 % 19-41 [facility] MCV (RBC) [Entitic vol]Order ed By: Yee Rowland on 06-22-2024 MCV (mean corpuscular volume) determination 97.8 fL 81-99 [facility] MCV (mean corpuscular volume ) determinationOrdered By: Yee Rowland on 06-22-2024 MCV (RBC) [Entitic vol] 97.8 fL 81-99 [facility] Mean corpuscular hemoglobin (MCH) determinationOrdered By: Yee Rowland on 06-22-2024 MCH (RBC) [Entitic mass] 32.3 pg High 27.0-32.0 [facility] Mean corpuscular hemoglobin (MCH) determination 32.3 pg High 27.0-32.0 [facility] Mean corpuscular hemoglobin concentration (MCHC) determinationOrdered By: Yee Rowland on 06-22-2024 Mean corpuscular hemoglobin concentration (MCHC) determination 33.0 g/dL 32-36 [facility] Mean platelet volume determi nationOrdered By: Yee Rowland on 06-22-2024 Mean platelet volume determination 11.1 fl 6.2-12.0 [facility] Monocyte percentageOrdered B y: Yee Rowland on 06-22-2024 Monocytes/100 WBC (Bld) 7.1 % 0-10 [facility] Monocyte percentage 7.1 % 0-10 [facility] Neutrophil percentageOrdered By: Yee Rowland on 06-22-2024 Neutrophils/100 WBC (Bld) 51.8 % 47-70 [facility] Neutrophil percentage 51.8 % 47-70 [facility] No Panel InformationOrdered By: Yee Rowland on 06-22-2024 18 U/L 15-37 [facility] Nucleated red blood cell per centageOrdered By: Yee Rowland on 06-22-2024 Nucleated red blood cell percentage 0 % 0-5 [facility] Platelet countOrdered By: Rene Rowland on 06-22-2024 Platelets (Bld) [#/Vol] 192 10*3/uL 150-450 [facility] Platelet count 192 K/mm3 150-450 [facility] Potassium measurementOrdered By: Yee Rowland on 06-22-2024 Potassium [Moles/Vol] 4.1 mmol/L 3.5-5.1 [facility] Potassium measurement 4.1 mmol/L 3.5-5.1 [facility] RBC Auto (Bld) [#/Vol]Ordere d By: Yee Rowland on 06-22-2024 RBC (Bld) [#/Vol] 3.56 10*6/uL Low 4.2-5.4 [facility] Automated blood erythrocyte count 3.56 M/mm3 Low 4.2-5.4 [facility] Serum anion gap measurementO rdered By: Yee Rowland on 06-22-2024 Serum anion gap measurement 6 5-15 [facility] Serum globulin measurementOr dered By: Yee Rowland on 06-22-2024 Globulin (S) [Mass/Vol] 3.5 g/dL 2.2-4.2 [facility] Serum globulin measurement 3.5 g/dL 2.2-4.2 [facility] Serum or plasma alanine carvalho otransferase (ALT) measurementOrdered By: Yee Rowland on 06-22-2024 ALT [Catalytic activity/Vol] 22 U/L 13-56 [facility] Serum or plasma albumin loretta urement (mass/volume)Ordered By: Yee Rowland on 06-22-2024 Albumin [Mass/Vol] 3.1 g/dL Low 3.2-5.0 [facility] Serum or plasma alkaline dima sphatase measurementOrdered By: Yee Rowland on 06-22-2024 ALP [Catalytic activity/Vol] 60 U/L 45-117 [facility] Serum or plasma calcium loretta urement (mass/volume)Ordered By: Yee Rowland on 06-22-2024 Calcium [Mass/Vol] 8.7 mg/dL 8.5-10.1 [facility] Serum or plasma creatinine m easurement (mass/volume)Ordered By: Yee Rowland on 06-22-2024 Creatinine [Mass/Vol] 0.88 mg/dL 0.55-1.02 [facility] Serum or plasma urea nitroge n measurement (mass/volume)Ordered By: Yee Rowland on 06-22-2024 Urea nitrogen [Mass/Vol] 23 mg/dL High 11-18 [facility] Sodium levelOrdered By: Karl Rowland on 06-22-2024 Sodium [Moles/Vol] 141 mmol/L 136-145 [facility] Sodium level 141 mmol/L 136-145 [facility] Total proteinOrdered By: Prasad Rowland on 06-22-2024 Protein [Mass/Vol] 6.6 g/dL 6.4-8.2 [facility] Total protein 6.6 g/dL 6.4-8.2 [facility] Urea nitrogen [Mass/Vol]Orde red By: Yee Rowland on 06-22-2024 Serum or plasma urea nitrogen measurement (mass/volume) 23 mg/dL High 11-18 [facility] White blood cell (WBC) count Ordered By: Yee Rowland on 06-22-2024 WBC (Bld) [#/Vol] 3.8 10*3/uL Low 4.4-11.0 [facility] White blood cell (WBC) count 3.8 K/mm3 Low 4.4-11.0 [facility] SCRN MAMM (CAD)W/PAUL BILATo n 06-07-2024 SCRN MAMM (CAD)W/PAUL BILAT Normal [facility] Internal Medicine Office Vis iton 05-20-2024 Internal Medicine Office Visit Normal [facility] No Panel Informationon 05-20 6.5 % High 4.2-6.3 [facility] ALP [Catalytic activity/Vol] Ordered By: Pepe Ruiz on 05-16-2024 Serum or plasma alkaline phosphatase measurement 66 U/L 45-117 [facility] ALT [Catalytic activity/Vol] Ordered By: Pepe Ruiz on 05-16-2024 Serum or plasma alanine aminotransferase (ALT) measurement 22 U/L 13-56 [facility] Albumin [Mass/Vol]Ordered By : Pepe Ruiz on 05-16-2024 Serum or plasma albumin measurement (mass/volume) 3.1 g/dL Low 3.2-5.0 [facility] Albumin to globulin ratioOrd ered By: Pepe Ruiz on 05-16-2024 Albumin to globulin ratio 0.9 RATIO 0.9-2.4 [facility] Ammoniaon 05-16-2024 Ammonia (P) [Moles/Vol] 39.0 umol/L High 11-32 [facility] Comment on above: Performed By: #### L 100.0500, L500.4050, L503.5510, L501.8100 ####[facility] [address], [address] Bilirubin, totalOrdered By: Pepe Ruiz on 05-16-2024 Bilirubin, total 0.30 mg/dL 0.20-1.00 [facility] Blood urea nitrogen (BUN)/cr eatinine ratioOrdered By: Pepe Ruiz on 05-16-2024 Blood urea nitrogen (BUN)/creatinine ratio 23.7 RATIO High 10-20 [facility] CBC-Complete Blood Cnt No Di ffon 05-16-2024 Erythrocyte distribution width (RBC) [Ratio] 13.5 % Normal 11.6-14.6 [facility] Comment on above: Performed By: #### L 100.0500, L500.4050, L503.5510, L501.8100 ####[facility] [address] [place], [address] Hematocrit (Bld) [Volume fraction] 35.5 % Low 37-47 [facility] Comment on above: Performed By: #### L 100.0500, L500.4050, L503.5510, L501.8100 ####[facility] [address] [place], [address] Hemoglobin (Bld) [Mass/Vol] 11.4 g/dL Low 12.0-15.0 [facility] Comment on above: Performed By: #### L 100.0500, L500.4050, L503.5510, L501.8100 ####[facility] [address] [place], [address] MCH (RBC) [Entitic mass] 31.6 pg Normal 27.0-32.0 [facility] Comment on above: Performed By: #### L 100.0500, L500.4050, L503.5510, L501.8100 ####[facility] [address] [place], [address] MCHC (RBC) [Mass/Vol] 32.1 g/dL Normal 32-36 [facility] Comment on above: Performed By: #### L 100.0500, L500.4050, L503.5510, L501.8100 ####[facility] [address] [place], [address] MCV (RBC) [Entitic vol] 98.3 fL Normal 81-99 [facility] Comment on above: Performed By: #### L 100.0500, L500.4050, L503.5510, L501.8100 ####[facility] [address] [place], [address] Platelet mean volume (Bld) [Entitic vol] 11.6 fL Normal 6.2-12.0 [facility] Comment on above: Performed By: #### L 100.0500, L500.4050, L503.5510, L501.8100 ####[facility] [address] [place], [address] Platelets (Bld) [#/Vol] 173 10*3/uL Normal 150-450 [facility] Comment on above: Performed By: #### L 100.0500, L500.4050, L503.5510, L501.8100 ####[facility] [address] [place], [address] RBC (Bld) [#/Vol] 3.61 10*6/uL Low 4.2-5.4 [facility] Comment on above: Performed By: #### L 100.0500, L500.4050, L503.5510, L501.8100 ####[facility] [address] [place], [address] RDW SD 49.5 fl High 35.1-43.9 [facility] Comment on above: Performed By: #### L 100.0500, L500.4050, L503.5510, L501.8100 ####[facility] [address] [place], [address] WBC (Bld) [#/Vol] 3.5 10*3/uL Low 4.4-11.0 [facility] Comment on above: Performed By: #### L 100.0500, L500.4050, L503.5510, L501.8100 ####[facility] [address] [place], [address] Calcium [Mass/Vol]Ordered By : Pepe Ruiz on 05-16-2024 Serum or plasma calcium measurement (mass/volume) 8.7 mg/dL 8.5-10.1 [facility] Carbon dioxide measurementOr dered By: Pepe Ruiz on 05-16-2024 Carbon dioxide measurement 26.0 mmol/L 21.0-32.0 [facility] Chloride measurementOrdered By: Pepe Ruiz on 05-16-2024 Chloride measurement 111 mmol/L High 98-107 [facility] Comprehensive Metabolic Prof ilon 05-16-2024 Albumin [Mass/Vol] 3.1 g/dL Low 3.2-5.0 [facility] Comment on above: Performed By: #### L 100.0500, L500.4050, L503.5510, L501.8100 ####[facility] [address] [place], [address] Albumin/Globulin [Mass ratio] 0.9 {ratio} Normal 0.9-2.4 [facility] Comment on above: Performed By: #### L 100.0500, L500.4050, L503.5510, L501.8100 ####[facility] [address] [place], [address] ALK P 66 U/L Normal 45-117 [facility] Comment on above: Performed By: #### L 100.0500, L500.4050, L503.5510, L501.8100 ####[facility] [address] [place], [address] ALT [Catalytic activity/Vol] 22 U/L Normal 13-56 [facility] Comment on above: Performed By: #### L 100.0500, L500.4050, L503.5510, L501.8100 ####[facility] [address] [place], [address] AST [Catalytic activity/Vol] 15 U/L Normal 15-37 [facility] Comment on above: Performed By: #### L 100.0500, L500.4050, L503.5510, L501.8100 ####[facility] [address] [place], [address] Bilirubin [Mass/Vol] 0.30 mg/dL Normal 0.20-1.00 [facility] Comment on above: Result Comment: For patients on eltrombopag therapy, use of Dimension [place] TBIL is not recommended. Performed By: #### L 100.0500, L500.4050, L503.5510, L501.8100 ####[facility] [address] [place], [address] BUN/CRE 23.7 RATIO High 10-20 [facility] Comment on above: Performed By: #### L 100.0500, L500.4050, L503.5510, L501.8100 ####[facility] [address] [place], [address] CA,Total 8.7 mg/dL Normal 8.5-10.1 [facility] Comment on above: Performed By: #### L 100.0500, L500.4050, L503.5510, L501.8100 ####[facility] [address] [place], [address] Chloride [Moles/Vol] 111 mmol/L High 98-107 [facility] Comment on above: Performed By: #### L 100.0500, L500.4050, L503.5510, L501.8100 ####[facility] [address] [place], [address] CO2 [Moles/Vol] 26.0 mmol/L Normal 21.0-32.0 [facility] Comment on above: Performed By: #### L 100.0500, L500.4050, L503.5510, L501.8100 ####[facility] [address] [place], [address] Creatinine [Mass/Vol] 0.93 mg/dL Normal 0.55-1.02 [facility] Comment on above: Result Comment: The validity of the calculated GFR GFRAA in patients over70 years has not been determined. Clinical correlation isessential. Performed By: #### L 100.0500, L500.4050, L503.5510, L501.8100 ####[facility] [address] [place], [address] EST GFR - AA 76 mL/min Normal >60 [facility] Comment on above: Result Comment: Afri can Maltese GFR Calc Performed By: #### L 100.0500, L500.4050, L503.5510, L501.8100 ####[facility] [address] [place], [address] GAP 3 Low 5-15 [facility] Comment on above: Performed By: #### L 100.0500, L500.4050, L503.5510, L501.8100 ####[facility] [address] [place], [address] GFR/1.73 sq M.predicted among non-blacks MDRD (S/P/Bld) [Vol rate/Area] 63 mL/min/{1.73_m2} Normal >60 [facility] Comment on above: Result Comment: Non- GFR Calc Performed By: #### L 100.0500, L500.4050, L503.5510, L501.8100 ####[facility] [address] [place], [address] Globulin (S) [Mass/Vol] 3.6 g/dL Normal 2.2-4.2 [facility] Comment on above: Performed By: #### L 100.0500, L500.4050, L503.5510, L501.8100 ####[facility] [address] [place], [address] Glucose [Mass/Vol] 122 mg/dL High 74-106 [facility] Comment on above: Result Comment: Fast ing Glucose result from 100 to 125 mg/dLsuggests IMPAIRED HOMEOSTASIS per A.D.A. criteria. Performed By: #### L 100.0500, L500.4050, L503.5510, L501.8100 ####[facility] [address] [place], [address] Potassium [Moles/Vol] 4.3 mmol/L Normal 3.5-5.1 [facility] Comment on above: Performed By: #### L 100.0500, L500.4050, L503.5510, L501.8100 ####[facility] [address] [place], [address] Sodium [Moles/Vol] 140 mmol/L Normal 136-145 [facility] Comment on above: Performed By: #### L 100.0500, L500.4050, L503.5510, L501.8100 ####[facility] [address] [place], [address] T PROT 6.7 g/dL Normal 6.4-8.2 [facility] Comment on above: Performed By: #### L 100.0500, L500.4050, L503.5510, L501.8100 ####[facility] [address] [place], [address] Urea nitrogen [Mass/Vol] 22 mg/dL High 7-18 [facility] Comment on above: Performed By: #### L 100.0500, L500.4050, L503.5510, L501.8100 ####[facility] [address] [place], [address] Creatinine [Mass/Vol]Ordered By: Pepe Ruiz on 05-16-2024 Serum or plasma creatinine measurement (mass/volume) 0.93 mg/dL 0.55-1.02 [facility] Erythrocyte distribution wid th (RBC) [Entitic vol]Ordered By: Pepe Ruiz on 05-16-2024 Erythrocyte distribution width standard deviation 49.5 fl High 35.1-43.9 [facility] Erythrocyte distribution wid th (RBC) [Ratio]Ordered By: Pepe Ruiz on 05-16-2024 Erythrocyte distribution width ratio 13.5 % 11.6-14.6 [facility] Estimated glomerular filtrat ion rate (GFR) AmericanOrdered By: Pepe Ruiz on 05-16-2024 Estimated glomerular filtration rate (GFR) 76 mL/min >60 [facility] Glomerular filtration rate ( GFR) estimationOrdered By: Pepe Ruiz on 05-16-2024 Glomerular filtration rate (GFR) estimation 63 mL/min >60 [facility] Glucose measurementOrdered B y: Pepe Ruiz on 05-16-2024 Glucose measurement 122 mg/dL High 74-106 [facility] Hematocrit Auto (Bld) [Volum e fraction]Ordered By: Pepe Ruiz on 05-16-2024 Automated blood hematocrit (percentage) 35.5 % Low 37-47 [facility] Hemoglobin measurementOrdere d By: Pepe Ruiz on 05-16-2024 Hemoglobin measurement 11.4 g/dL Low 12.0-15.0 [facility] MCV (RBC) [Entitic vol]Order ed By: Pepe Ruiz on 05-16-2024 MCV (mean corpuscular volume) determination 98.3 fL 81-99 [facility] Mean corpuscular hemoglobin (MCH) determinationOrdered By: Pepe Ruiz on 05-16-2024 Mean corpuscular hemoglobin (MCH) determination 31.6 pg 27.0-32.0 [facility] Mean corpuscular hemoglobin concentration (MCHC) determinationOrdered By: Pepe Ruiz on 05-16-2024 Mean corpuscular hemoglobin concentration (MCHC) determination 32.1 g/dL 32-36 [facility] Mean platelet volume determi nationOrdered By: Pepe Ruiz on 05-16-2024 Mean platelet volume determination 11.6 fl 6.2-12.0 [facility] Neurology Visit Reporton Neurology Visit Report Normal [facility] No Panel InformationOrdered By: Pepe Ruiz on 05-16-2024 15 U/L 15-37 [facility] Platelet countOrdered By: Ra cheyanne Ruiz on 05-16-2024 Platelet count 173 K/mm3 150-450 [facility] Potassium measurementOrdered By: Pepe Ruiz on 05-16-2024 Potassium measurement 4.3 mmol/L 3.5-5.1 [facility] RBC Auto (Bld) [#/Vol]Ordere d By: Pepe Ruiz on 05-16-2024 Automated blood erythrocyte count 3.61 M/mm3 Low 4.2-5.4 [facility] Serum anion gap measurementO rdered By: Pepe Ruiz on 05-16-2024 Serum anion gap measurement 3 Low 5-15 [facility] Serum globulin measurementOr dered By: Pepe Ruiz on 05-16-2024 Serum globulin measurement 3.6 g/dL 2.2-4.2 [facility] Sodium levelOrdered By: Jimmieraymundo yorknapoleon Ruiz on 05-16-2024 Sodium level 140 mmol/L 136-145 [facility] Total proteinOrdered By: Jimmie juannapoleon Ruiz on 05-16-2024 Total protein 6.7 g/dL 6.4-8.2 [facility] Urea nitrogen [Mass/Vol]Orde red By: Pepe Ruiz on 05-16-2024 Serum or plasma urea nitrogen measurement (mass/volume) 22 mg/dL High 7-18 [facility] Valproate levelOrdered By: Tere Ruiz on 05-16-2024 Valproate level 74 ug/mL 50-100 [facility] Valproic Acid (Depakene) Lev tommy 05-16-2024 VALPROIC ACID 74 ug/mL Normal 50-100 [facility] Comment on above: Performed By: #### L 100.0500, L500.4050, L503.5510, L501.8100 ####[facility] [address] [place], [place], [id number] Venous blood ammonia measure mentOrdered By: Pepe Ruiz on 05-16-2024 Venous blood ammonia measurement 39.0 umol/L High 11-32 [facility] White blood cell (WBC) count Ordered By: Pepe Ruiz on 05-16-2024 White blood cell (WBC) count 3.5 K/mm3 Low 4.4-11.0 [facility] 6 Minute Walk Teston 04-25-2 024 6 Minute Walk Test Normal [facility] Office Visit Reporton 2023 Office Visit Report Normal [facility] Cardiology Visit Reporton Cardiology Visit Report Normal [facility] Urine Cultureon 02-21-2024 URC Below infection natalie corley Mixed Gram Positive Organisms Lewis Count 1000-10,000 MIXC Mixed contaminants. Submit a new specimen if indicated. Normal [facility] Comment on above: Performed By: #### L 400.0001, M100.2200 ####[facility] [address] [place], [place], [id number] Internal Medicine Office Vis iton 02-19-2024 Internal Medicine Office Visit Normal [facility] Urinalysis, Completeon 02-18 BACTERIA 0 SEEN Normal None Seen [facility] Comment on above: Order Comment: FERNANDO CTOR TO SPECIFY Performed By: #### L 400.0001, M100.2200 ####[facility] [address] [place], [address] EPI,SQUAMOUS 0 SEEN Normal 5-10 [facility] Comment on above: Order Comment: FERNANDO CTOR TO SPECIFY Performed By: #### L 400.0001, M100.2200 ####[facility] [address] [place], [address] Mucus Ql (Urine sed) 0 SEEN Normal [facility] Comment on above: Order Comment: FERNANDO CTOR TO SPECIFY Performed By: #### L 400.0001, M100.2200 ####[facility] [address] [place], [address] RBC 0 SEEN Normal 0-5 [facility] Comment on above: Order Comment: FERNANDO CTOR TO SPECIFY Performed By: #### L 400.0001, M100.2200 ####[facility] [address] [place], [address] WBC 0 SEEN Normal 0-5 [facility] Comment on above: Order Comment: FERNANDO CTOR TO SPECIFY Performed By: #### L 400.0001, M100.2200 ####[facility] [address] [place], [address] Ankle min 3 Viewson 02-14-20 24 Ankle min 3 Views Normal [facility] Emergency Department Summary on 02-14-2024 Emergency Department Summary Normal [facility] Absolute lymphocyte countOrd ered By: Pepe Ruiz on 09-07-2023 Lymphocytes Auto (Unsp spec) [#/Vol] 1.27 10*3/uL 0.83-4.51 [facility] Automated lymphocyte count a s percentage of total leukocytesOrdered By: Pepe Ruiz on 09-07-2023 Lymphocytes/100 WBC Auto (Unsp spec) 31.9 % 19-41 [facility] Basophil percentageOrdered B y: Pepe Ruiz on 09-07-2023 Basophils/100 WBC (Bld) 0.3 % 0-1 [facility] Eosinophils/100 WBC (Bld) 6.5 % 0-5 [facility] Hemoglobin (Bld) [Mass/Vol] 10.8 g/dL 12.0-15.0 [facility] Monocytes/100 WBC (Bld) 9.3 % 0-10 [facility] Neutrophils (Bld) [#/Vol] 2.0 10*3/uL 2.0-7.7 [facility] Neutrophils/100 WBC (Bld) 51.2 % 47-70 [facility] WBC (Bld) [#/Vol] 4.0 10*3/uL 4.4-11.0 [facility] Ammonia (P) [Moles/Vol] 67.0 umol/L 11-32 [facility] Basophil percentage 17.0 IU/mL <15 [facility] Bilirubin [Mass/Vol] 0.30 mg/dL 0.20-1.00 [facility] Comment on above: For patients on eltr ombopag therapy, use of Dimension [place] TBIL is not recommended. Chloride [Moles/Vol] 111 mmol/L 98-107 [facility] Glucose [Mass/Vol] 139 mg/dL 74-106 [facility] Comment on above: Fasting Glucose resu lt greater than or equal to 126 mg/dL suggests DIABETES MELLITUS per A.D.A. criteria. Potassium [Moles/Vol] 4.0 mmol/L 3.5-5.1 [facility] Protein [Mass/Vol] 6.6 g/dL 6.4-8.2 [facility] Sodium [Moles/Vol] 141 mmol/L 136-145 [facility] Determination of erythrocyte mean corpuscular volume (MCV)Ordered By: Pepe Ruiz on 09-07-2023 MCV (RBC) [Entitic vol] 100.0 fL 81-99 [facility] Erythrocyte distribution wid th ratioOrdered By: Pepe Ruiz on 09-07-2023 Erythrocyte distribution width (RBC) [Ratio] 14.2 % 11.6-14.6 [facility] Erythrocyte distribution wid th standard deviationOrdered By: Pepe Ruiz on 09-07-2023 Erythrocyte distribution width (RBC) [Entitic vol] 52.2 fL 35.1-43.9 [facility] Erythrocyte sedimentation ra teOrdered By: Pepe Ruiz on 09-07-2023 ESR (Bld) [Velocity] 2 mm/h 0-30 [facility] Hematocrit Auto (Bld) [Volum e fraction]Ordered By: Pepe Ruiz on 09-07-2023 Hematocrit (Bld) [Volume fraction] 33.0 % 37-47 [facility] Immature granulocytes/100 WB C Auto (Bld)Ordered By: Pepeamol Ruiz on 09-07-2023 Immature granulocytes/100 WBC (Bld) 0.800 % 0.0-0.9 [facility] Comment on above: IG% - Immature Granu locytes (promyelocytes, myelocytes and metamyelocytes) > 1% indicates that a LEFT SHIFT is Present. Laboratory - Chemistry and C hemistry - challengeOrdered By: Pepe Ruiz on 09-07-2023 Albumin/Globulin [Mass ratio] 0.7 {ratio} 0.9-2.4 [facility] ALP [Catalytic activity/Vol] 93 U/L 45-117 [facility] ALT [Catalytic activity/Vol] 21 U/L 13-56 [facility] CO2 [Moles/Vol] 25.0 mmol/L 21.0-32.0 [facility] Cobalamin (Vitamin B12) [Mass/Vol] 366 pg/mL 211-911 [facility] Globulin (S) [Mass/Vol] 3.8 g/dL 2.2-4.2 [facility] Urea nitrogen/Creatinine [Mass ratio] 21.4 mg/mg 10-20 [facility] Laboratory - Hematology and Cell countsOrdered By: Pepe Ruiz on 09-07-2023 MCH (RBC) [Entitic mass] 32.7 pg 27.0-32.0 [facility] MCHC (RBC) [Mass/Vol] 32.7 g/dL 32-36 [facility] Nucleated RBC/100 WBC (Bld) [Ratio] 0 % 0-5 [facility] Platelet mean volume (Bld) [Entitic vol] 12.0 fL 6.2-12.0 [facility] Platelets (Bld) [#/Vol] 186 10*3/uL 150-450 [facility] No Panel InformationOrdered By: Pepe Ruiz on 09-07-2023 Anti-Nuclear Antibody Screen Negative Negative [facility] Comment on above: Performed at: [facility] [address] [id number] Director: Lobo Das PhD, Phone: [phone] C-Reactive Protein Extended Range < 2.90 mg/L 0.0-3.0 [facility] Comment on above: C-Reactive Protein ( CRP) provides useful information for thediagnosis, therapy and monitoring of inflammatory processesand associated diseases. For the evaluation of Relative Riskfor Cardiovascular Disease, a High Sensitivity CRP (HSCRP)should be ordered. Estimated GFR (MDRD) Amer 76 mL/min >60 [facility] Comment on above: GFR Calc Estimated GFR (MDRD) Non-Af Amer 63 mL/min >60 [facility] Comment on above: Non- GFR Calc Folate 9.10 ng/mL 3.1-55.4 [facility] Hepatitis B Surface Antigen Non-Reactive Nonreactive [facility] Hepatitis C Antibody Non-Reactive Nonreactive [facility] Comment on above: Non Reactive: < 0.8 Equivocal: >/= 0.8 to < 1.0 Reactive: >/= 1.0The CDC requires that a reactive/equivocal HCV antibody result be sent out for confirmation. HCV Quant by PCR testing. Valproic Acid (Depakene) Level 103 ug/mL 50-100 [facility] RBC Auto (Bld) [#/Vol]Ordere d By: Pepe Ruiz on 09-07-2023 RBC (Bld) [#/Vol] 3.30 10*6/uL 4.2-5.4 [facility] Serum cyclic citrullinated p eptide IgG antibody assay (units/volume)Ordered By: Pepe Ruiz on 09-07-2023 Cyclic citrullinated peptide IgG Qn 7 units 0-19 [facility] Comment on above: Negative <20 Weak po sitive 20 - 39 Moderate positive 40 - 59 Strong positive >59Performed at: - [facility] [id number] Director: Adamaris Shi MD, Phone: [phone] at: [facility] AB[facility] CenterFhdypr[address] [place], [place] [id number] Director: Lobo Das PhD, Phone: [phone] Serum hepatitis B virus surf kwadwo antibody IgG detectionOrdered By: Pepe Ruiz on 09-07-2023 HBV surface IgG Ql (S) Non-Reactive [facility] Comment on above: Non Reactive: Incons istent with immunity less than <10 mIU/mL Reactive: Consistent with immunity greater than or equal to 10 mIU/mL Serum or plasma calcium loretta urement (mass/volume)Ordered By: Pepe Ruiz on 09-07-2023 Calcium [Mass/Vol] 8.4 mg/dL 8.5-10.1 [facility] Serum or plasma creatinine m easurement (mass/volume)Ordered By: Pepe Ruiz on 09-07-2023 Creatinine [Mass/Vol] 0.94 mg/dL 0.55-1.02 [facility] Comment on above: The validity of the calculated GFR & GFRAA in patients over 70 years has not been determined. Clinical correlation is essential. Serum or plasma thiamine kirill surement (mass/volume)Ordered By: Pepe Ruiz on 09-07-2023 Thiamine [Mass/Vol] 109.8 nmol/L 66.5-200.0 [facility] Serum or plasma thyroid stim ulating hormone (TSH) measurement (units/volume)Ordered By: Pepe Ruiz on 09-07-2023 TSH Qn 2.91 uIU/mL 0.358-3.74 [facility] Serum or plasma urea nitroge n measurement (mass/volume)Ordered By: Pepe Ruiz on 09-07-2023 Urea nitrogen [Mass/Vol] 20 mg/dL 7-18 [facility] Thin prep Papanicolaou smear with manual screeningOrdered By: Pepe Ruiz on 09-07-2023 Thin prep Papanicolaou smear with manual screening 2.8 g/dL 3.2-5.0 [facility] Thin prep Papanicolaou smear with manual screening 21 U/L 15-37 [facility] Thin prep Papanicolaou smear with manual screening 5 5-15 [facility] Basophil percentageOrdered B y: Vadim Mckinney on 08-14-2023 Basophil percentage < 1.0 mg/dL 0.55-1.02 [facility] No Panel InformationOrdered By: Vadim Mckinney on 08-14-2023 Bedside Estimated GFR (eGFR) > 60.0000 mL/min >60 [facility] Absolute lymphocyte countOrd ered By: Mayda Garcia on 06-17-2023 Lymphocytes Auto (Unsp spec) [#/Vol] 0.86 10*3/uL 0.83-4.51 [facility] Automated lymphocyte count a s percentage of total leukocytesOrdered By: Mayda Garcia on 06-17-2023 Lymphocytes/100 WBC Auto (Unsp spec) 27.2 % 19-41 [facility] Basophil percentageOrdered B y: Jiamichelleabiolaconsuelo Garcia on 06-17-2023 Basophils/100 WBC (Bld) 0.6 % 0-1 [facility] Chloride [Moles/Vol] 112 mmol/L 98-107 [facility] Eosinophils/100 WBC (Bld) 2.8 % 0-5 [facility] Glucose [Mass/Vol] 138 mg/dL 74-106 [facility] Comment on above: Fasting Glucose resu lt greater than or equal to 126 mg/dL suggests DIABETES MELLITUS per A.D.A. criteria. Hemoglobin (Bld) [Mass/Vol] 12.2 g/dL 12.0-15.0 [facility] Monocytes/100 WBC (Bld) 6.0 % 0-10 [facility] Neutrophils (Bld) [#/Vol] 2.0 10*3/uL 2.0-7.7 [facility] Neutrophils/100 WBC (Bld) 63.1 % 47-70 [facility] Potassium [Moles/Vol] 4.1 mmol/L 3.5-5.1 [facility] Sodium [Moles/Vol] 142 mmol/L 136-145 [facility] WBC (Bld) [#/Vol] 3.2 10*3/uL 4.4-11.0 [facility] Determination of erythrocyte mean corpuscular volume (MCV)Ordered By: Mayda Garcia on 06-17-2023 MCV (RBC) [Entitic vol] 99.0 fL 81-99 [facility] Erythrocyte distribution wid th ratioOrdered By: [facility] Suleimanchandana on 06-17-2023 Erythrocyte distribution width (RBC) [Ratio] 14.3 % 11.6-14.6 [facility] Erythrocyte distribution wid th standard deviationOrdered By: [facility] on 06-17-2023 Erythrocyte distribution width (RBC) [Entitic vol] 52.5 fL 35.1-43.9 [facility] Hematocrit Auto (Bld) [Volum e fraction]Ordered By: michelleboulderconsuelo Ibanezchandana on 06-17-2023 Hematocrit (Bld) [Volume fraction] 38.8 % 37-47 [facility] Immature granulocytes/100 WB C Auto (Bld)Ordered By: [facility] on 06-17-2023 Immature granulocytes/100 WBC (Bld) 0.300 % 0.0-0.9 [facility] Comment on above: IG% - Immature Granu locytes (promyelocytes, myelocytes and metamyelocytes) > 1% indicates that a LEFT SHIFT is Present. Laboratory - Chemistry and C hemistry - challengeOrdered By: michelleboulderconsuelo Garcia on 06-17-2023 CO2 [Moles/Vol] 26.0 mmol/L 21.0-32.0 [facility] Urea nitrogen/Creatinine [Mass ratio] 27.6 mg/mg 10-20 [facility] Laboratory - Hematology and Cell countsOrdered By: [facility] I[facility]zchandana on 06-17-2023 MCH (RBC) [Entitic mass] 31.1 pg 27.0-32.0 [facility] MCHC (RBC) [Mass/Vol] 31.4 g/dL 32-36 [facility] Nucleated RBC/100 WBC (Bld) [Ratio] 0 % 0-5 [facility] Platelet mean volume (Bld) [Entitic vol] 11.2 fL 6.2-12.0 [facility] Platelets (Bld) [#/Vol] 184 10*3/uL 150-450 [facility] No Panel InformationOrdered By: Mayda Garcia on 06-17-2023 Estimated GFR (MDRD) Amer 87 mL/min >60 [facility] Comment on above: GFR Calc Estimated GFR (MDRD) Non-Af Amer 72 mL/min >60 [facility] Comment on above: Non- GFR Calc RBC Auto (Bld) [#/Vol]Ordere d By: Mayda Garcia on 06-17-2023 RBC (Bld) [#/Vol] 3.92 10*6/uL 4.2-5.4 [facility] Serum or plasma calcium loretta urement (mass/volume)Ordered By: Mayda Garcia on 06-17-2023 Calcium [Mass/Vol] 8.5 mg/dL 8.5-10.1 [facility] Serum or plasma creatinine m easurement (mass/volume)Ordered By: Mayda Garcia on 06-17-2023 Creatinine [Mass/Vol] 0.83 mg/dL 0.55-1.02 [facility] Comment on above: The validity of the calculated GFR & GFRAA in patients over 70 years has not been determined. Clinical correlation is essential. Serum or plasma urea nitroge n measurement (mass/volume)Ordered By: Mayda Garcia on 06-17-2023 Urea nitrogen [Mass/Vol] 23 mg/dL 11-18 [facility] Thin prep Papanicolaou smear with manual screeningOrdered By: Mayda Garcia on 06-17-2023 Thin prep Papanicolaou smear with manual screening 4 5-15 [facility] Whole blood hemoglobin A1c/t otal hemoglobin ratio (mass fraction)Ordered By: Mayda Garcia on 06-17-2023 HbA1c (Bld) [Mass fraction] 6.3 % 3.8-5.6 [facility] Comment on above: Normal < 5.7 % Predi abetic 5.7 - 6.4 % Diabetic >or= 6.5 % Please note range changes. Absolute lymphocyte countOrd ered By: Carlos Bravo on 02-18-2023 Lymphocytes Auto (Unsp spec) [#/Vol] 1.35 10*3/uL 0.83-4.51 [facility] Basophil percentageOrdered B y: Pepe Ruiz on 02-18-2023 Ammonia (P) [Moles/Vol] 42.0 umol/L 11-32 [facility] Basophil percentage 42.0 umol/L 11-32 [facility] Basophil percentageOrdered B y: Carlos Bravo on 02-18-2023 Basophil percentage 96 mg/dL 74-106 [facility] Basophil percentage 7.4 g/dL 6.4-8.2 [facility] Basophil percentage 0.30 mg/dL 0.20-1.00 [facility] Basophil percentage 141 mmol/L 136-145 [facility] Basophil percentage 3.6 mmol/L 3.5-5.1 [facility] Basophil percentage 108 mmol/L 98-107 [facility] Basophils (Bld) [#/Vol] 5.6 10*3/uL 4.4-11.0 [facility] Basophils (Bld) [#/Vol] 3.4 10*3/uL 2.0-7.7 [facility] Basophils/100 WBC (Bld) 60.8 % 47-70 [facility] Basophils/100 WBC (Bld) 6.3 % 0-5 [facility] Basophils/100 WBC (Bld) 0.4 % 0-1 [facility] Bilirubin [Mass/Vol] 0.30 mg/dL 0.20-1.00 [facility] Comment on above: For patients on eltr ombopag therapy, use of Dimension [place] TBIL is not recommended. Chloride [Moles/Vol] 108 mmol/L 98-107 [facility] Eosinophils/100 WBC (Bld) 6.3 % 0-5 [facility] Glucose [Mass/Vol] 96 mg/dL 74-106 [facility] Neutrophils (Bld) [#/Vol] 3.4 10*3/uL 2.0-7.7 [facility] Neutrophils/100 WBC (Bld) 60.8 % 47-70 [facility] Potassium [Moles/Vol] 3.6 mmol/L 3.5-5.1 [facility] Protein [Mass/Vol] 7.4 g/dL 6.4-8.2 [facility] Sodium [Moles/Vol] 141 mmol/L 136-145 [facility] WBC (Bld) [#/Vol] 5.6 10*3/uL 4.4-11.0 [facility] Blood erythrocytes count (nu mber/volume)Ordered By: Carlos Bravo on 02-18-2023 RBC (Bld) [#/Vol] 3.67 10*6/uL 4.2-5.4 [facility] Blood hemoglobin measurement (mass/volume)Ordered By: Carlos Bravo on 02-18-2023 Hemoglobin (Bld) [Mass/Vol] 11.2 g/dL 12.0-15.0 [facility] Blood lymphocytes/100 leukoc ytesOrdered By: Cralos Bravo on 02-18-2023 Lymphocytes/100 WBC (Bld) 24.1 % 19-41 [facility] Blood monocytes/100 leukocyt esOrdered By: Carlos Bravo on 02-18-2023 Monocytes/100 WBC (Bld) 8.2 % 0-10 [facility] Blood platelet mean volumeOr dered By: Carlos Bravo on 02-18-2023 Platelet mean volume (Bld) [Entitic vol] 10.9 fL 6.2-12.0 [facility] Determination of erythrocyte mean corpuscular volume (MCV)Ordered By: Carlos Bravo on 02-18-2023 MCV (RBC) [Entitic vol] 96.7 fL 81-99 [facility] Hematocrit Auto (Bld) [Volum e fraction]Ordered By: Carlos Bravo on 02-18-2023 Hematocrit (Bld) [Volume fraction] 35.5 % 37-47 [facility] Laboratory - Chemistry and C hemistry - challengeOrdered By: Carlos Bravo on 02-18-2023 ALP [Catalytic activity/Vol] 79 U/L 45-117 [facility] ALT [Catalytic activity/Vol] 13 U/L 13-56 [facility] CO2 [Moles/Vol] 24.0 mmol/L 21.0-32.0 [facility] Free T4 [Mass/Vol] 1.01 ng/dL 0.76-1.46 [facility] Globulin (S) [Mass/Vol] 4.8 g/dL 2.2-4.2 [facility] Natriuretic peptide B (Bld) [Mass/Vol] 26.8 pg/mL 0-100 [facility] Urea nitrogen/Creatinine [Mass ratio] 17.6 mg/mg 10- [facility] Laboratory - Hematology and Cell countsOrdered By: Carlos Bravo on 02-18-2023 Erythrocyte distribution width (RBC) [Entitic vol] 52.1 fL 35.1-43.9 [facility] Erythrocyte distribution width (RBC) [Ratio] 14.6 % 11.6-14.6 [facility] Immature granulocytes/100 WBC (Bld) 0.200 % 0.0-0.9 [facility] Comment on above: IG% - Immature Granu locytes (promyelocytes, myelocytes and metamyelocytes) > 1% indicates that a LEFT SHIFT is Present. MCH (RBC) [Entitic mass] 30.5 pg 27.0-32.0 [facility] Nucleated RBC/100 WBC (Bld) [Ratio] 0 % 0-5 [facility] MCHC Auto (RBC) [Mass/Vol]Or dered By: Carlos Bravo on 02-18-2023 MCHC (RBC) [Mass/Vol] 31.5 g/dL 32-36 [facility] No Panel InformationOrdered By: Carlos Bravo on 02-18-2023 Estimated GFR (MDRD) Amer 92 mL/min >60 [facility] Comment on above: GFR Calc Estimated GFR (MDRD) Non-Af Amer 76 mL/min >60 [facility] Comment on above: Non- GFR Calc Thyroid Stimulating Hormone (TSH) 3.45 uIU/mL 0.358-3.74 [facility] 30.5 pg 27.0-32.0 [facility] 14.6 % 11.6-14.6 [facility] 52.1 fl 35.1-43.9 [facility] 0.200 % 0.0-0.9 [facility] 0 % 0-5 [facility] 76 mL/min >60 [facility] 92 mL/min >60 [facility] 17.6 RATIO 02-20 [facility] 4.8 g/dL 2.2-4.2 [facility] 79 U/L 45-117 [facility] 13 U/L 13-56 [facility] 24.0 mmol/L 21.0-32.0 [facility] 3.45 uIU/mL 0.358-3.74 [facility] 26.8 pg/mL 0-100 [facility] 1.01 ng/dL 0.76-1.46 [facility] No Panel InformationOrdered By: Pepe Ruiz on 02-18-2023 Valproic Acid (Depakene) Level 103 ug/mL 50-100 [facility] Whole Blood Vitamin B1 Level 106.4 nmol/L 66.5-200.0 [facility] Comment on above: Performed at: [address] [id number] Director: Adamaris Shi MD, Phone: [phone] 103 ug/mL 50-100 [facility] 106.4 nmol/L 66.5-200.0 [facility] Platelets bldOrdered By: Aj Bravo on 02-18-2023 Platelets (Bld) [#/Vol] 251 10*3/uL 150-450 [facility] Serum or plasma albumin loretta urement (mass/volume)Ordered By: Carlos Bravo on 02-18-2023 Albumin [Mass/Vol] 2.6 g/dL 3.2-5.0 [facility] Serum or plasma albumin/glob ulin mass ratioOrdered By: Carlos Bravo on 02-18-2023 Albumin/Globulin [Mass ratio] 0.5 {ratio} 0.9-2.4 [facility] Serum or plasma calcium loretta urement (mass/volume)Ordered By: Carlos Bravo on 02-18-2023 Calcium [Mass/Vol] 8.7 mg/dL 8.5-10.1 [facility] Serum or plasma creatinine m easurement (mass/volume)Ordered By: Carlos Bravo on 02-18-2023 Creatinine [Mass/Vol] 0.80 mg/dL 0.55-1.02 [facility] Comment on above: The validity of the calculated GFR & GFRAA in patients over 70 years has not been determined. Clinical correlation is essential. Serum or plasma urea nitroge n measurement (mass/volume)Ordered By: Carlos Bravo on 02-18-2023 Urea nitrogen [Mass/Vol] 14 mg/dL 7-18 [facility] Thin prep Papanicolaou smear with manual screeningOrdered By: Carlos Bravo on 02-18-2023 Thin prep Papanicolaou smear with manual screening 11 U/L 15-37 [facility] Thin prep Papanicolaou smear with manual screening 9 5-15 [facility] Iron measurement (mass/mass) Ordered By: Mayda Garcia on 02-04-2023 Iron (Unsp spec) [Mass/Mass] 41 ug/dL 50-170 [facility] Laboratory - Chemistry and C hemistry - challengeOrdered By: Mayda Garcia on 02-04-2023 Cobalamin (Vitamin B12) [Mass/Vol] 262 pg/mL [facility] No Panel InformationOrdered By: Mayda Garcia on 02-04-2023 Total Iron Binding Capacity 217 ug/dL 250-450 [facility] 262 pg/mL [facility] 217 ug/dL 250-450 [facility] Serum or plasma ferritin kirill surement (mass/volume)Ordered By: Mayda Garcia on 02-04-2023 Ferritin [Mass/Vol] 364 ng/mL 8-252 [facility] Serum or plasma folate measu rement (mass/volume)Ordered By: Mayda Garcia on 02-04-2023 Folate [Mass/Vol] 17.40 ng/mL 3.1-55.4 [facility] Absolute lymphocyte countOrd ered By: Robbin Carlos on 01-26-2023 Lymphocytes Auto (Unsp spec) [#/Vol] 1.96 10*3/uL 0.83-4.51 [facility] Basophil percentageOrdered B y: Robbin Carlos on 01-26-2023 Basophil percentage 85 mg/dL 74-106 [facility] Basophil percentage 140 mmol/L 136-145 [facility] Basophil percentage 3.9 mmol/L 3.5-5.1 [facility] Basophil percentage 108 mmol/L 98-107 [facility] Basophils (Bld) [#/Vol] 4.8 10*3/uL 4.4-11.0 [facility] Basophils (Bld) [#/Vol] 2.2 10*3/uL 2.0-7.7 [facility] Basophils/100 WBC (Bld) 0.6 % 0-1 [facility] Basophils/100 WBC (Bld) 46.3 % 47-70 [facility] Basophils/100 WBC (Bld) 3.3 % 0-5 [facility] Chloride [Moles/Vol] 108 mmol/L 98-107 [facility] Eosinophils/100 WBC (Bld) 3.3 % 0-5 [facility] Glucose [Mass/Vol] 85 mg/dL 74-106 [facility] Neutrophils (Bld) [#/Vol] 2.2 10*3/uL 2.0-7.7 [facility] Neutrophils/100 WBC (Bld) 46.3 % 47-70 [facility] Potassium [Moles/Vol] 3.9 mmol/L 3.5-5.1 [facility] Sodium [Moles/Vol] 140 mmol/L 136-145 [facility] WBC (Bld) [#/Vol] 4.8 10*3/uL 4.4-11.0 [facility] Blood erythrocytes count (nu mber/volume)Ordered By: Robbin Carlos on 01-26-2023 RBC (Bld) [#/Vol] 3.21 10*6/uL 4.2-5.4 [facility] Blood hemoglobin measurement (mass/volume)Ordered By: Robbin Carlos on 01-26-2023 Hemoglobin (Bld) [Mass/Vol] 9.9 g/dL 12.0-15.0 [facility] Blood lymphocytes/100 leukoc ytesOrdered By: Robbin Carlos on 01-26-2023 Lymphocytes/100 WBC (Bld) 41.0 % 19-41 [facility] Blood monocytes/100 leukocyt esOrdered By: Robbin Carlos on 01-26-2023 Monocytes/100 WBC (Bld) 8.4 % 0-10 [facility] Blood platelet mean volumeOr dered By: Robbin Carlos on 01-26-2023 Platelet mean volume (Bld) [Entitic vol] 11.4 fL 6.2-12.0 [facility] Determination of erythrocyte mean corpuscular volume (MCV)Ordered By: Robbin Carlos on 01-26-2023 MCV (RBC) [Entitic vol] 96.3 fL 81-99 [facility] Hematocrit Auto (Bld) [Volum e fraction]Ordered By: Robbin Carlos on 01-26-2023 Hematocrit (Bld) [Volume fraction] 30.9 % 37-47 [facility] Laboratory - Chemistry and C hemistry - challengeOrdered By: Robbin Carlos on 01-26-2023 CO2 [Moles/Vol] 27.0 mmol/L 21.0-32.0 [facility] Urea nitrogen/Creatinine [Mass ratio] 17.4 mg/mg 10-20 [facility] Laboratory - Hematology and Cell countsOrdered By: Robbin Carlos on 01-26-2023 Erythrocyte distribution width (RBC) [Entitic vol] 51.8 fL 35.1-43.9 [facility] Erythrocyte distribution width (RBC) [Ratio] 14.6 % 11.6-14.6 [facility] Immature granulocytes/100 WBC (Bld) 0.400 % 0.0-0.9 [facility] Comment on above: IG% - Immature Granu locytes (promyelocytes, myelocytes and metamyelocytes) > 1% indicates that a LEFT SHIFT is Present. MCH (RBC) [Entitic mass] 30.8 pg 27.0-32.0 [facility] Nucleated RBC/100 WBC (Bld) [Ratio] 0 % 0-5 [facility] MCHC Auto (RBC) [Mass/Vol]Or dered By: Robbin Carlos on 01-26-2023 MCHC (RBC) [Mass/Vol] 32.0 g/dL 32-36 [facility] No Panel InformationOrdered By: Robbin Carlos on 01-26-2023 Estimated Creatinine Clearance Calc 41.40 ml/min [facility] Estimated GFR (MDRD) Amer 99 mL/min >60 [facility] Comment on above: GFR Calc Estimated GFR (MDRD) Non-Af Amer 82 mL/min >60 [facility] Comment on above: Non- GFR Calc 30.8 pg 27.0-32.0 [facility] 14.6 % 11.6-14.6 [facility] 51.8 fl 35.1-43.9 [facility] 0.400 % 0.0-0.9 [facility] 0 % 0-5 [facility] 82 mL/min >60 [facility] 99 mL/min >60 [facility] 41.40 ml/min [facility] 17.4 RATIO 10-20 [facility] 27.0 mmol/L 21.0-32.0 [facility] Platelets bldOrdered By: Robbin Carlos on 01-26-2023 Platelets (Bld) [#/Vol] 149 10*3/uL 150-450 [facility] Serum or plasma calcium loretta urement (mass/volume)Ordered By: Robbin Carlos on 01-26-2023 Calcium [Mass/Vol] 8.5 mg/dL 8.5-10.1 [facility] Serum or plasma creatinine m easurement (mass/volume)Ordered By: Robbin Carlos on 01-26-2023 Creatinine [Mass/Vol] 0.75 mg/dL 0.55-1.02 [facility] Comment on above: The validity of the calculated GFR & GFRAA in patients over 70 years has not been determined. Clinical correlation is essential. Serum or plasma urea nitroge n measurement (mass/volume)Ordered By: Robbin Carlos on 01-26-2023 Urea nitrogen [Mass/Vol] 13 mg/dL 7-18 [facility] Thin prep Papanicolaou smear with manual screeningOrdered By: Robbin Carlos on 01-26-2023 Thin prep Papanicolaou smear with manual screening 5 5-15 [facility] Basophil percentageOrdered B y: Robbin Carlos on 01-22-2023 Basophil percentage 6.4 g/dL 6.4-8.2 [facility] Basophil percentage 0.20 mg/dL 0.20-1.00 [facility] Bilirubin [Mass/Vol] 0.20 mg/dL 0.20-1.00 [facility] Comment on above: For patients on eltr ombopag therapy, use of Dimension [place] TBIL is not recommended. Protein [Mass/Vol] 6.4 g/dL 6.4-8.2 [facility] Laboratory - Chemistry and C hemistry - challengeOrdered By: Robbin Carlos on 01-22-2023 ALP [Catalytic activity/Vol] 102 U/L 45-117 [facility] ALT [Catalytic activity/Vol] 28 U/L [facility] Globulin (S) [Mass/Vol] 3.9 g/dL 2.2-4.2 [facility] No Panel InformationOrdered By: Robbin Carlos on 01-22-2023 3.9 g/dL 2.2-4.2 [facility] 102 U/L 45-117 [facility] 28 U/L [facility] Serum or plasma albumin loretta urement (mass/volume)Ordered By: Robbin Carlos on 01-22-2023 Albumin [Mass/Vol] 2.5 g/dL 3.2-5.0 [facility] Serum or plasma albumin/glob ulin mass ratioOrdered By: Robbin Carlos on 01-22-2023 Albumin/Globulin [Mass ratio] 0.6 {ratio} 0.9-2.4 [facility] Thin prep Papanicolaou smear with manual screeningOrdered By: Robbin Carlos on 01-22-2023 Thin prep Papanicolaou smear with manual screening 26 U/L 15-37 [facility] Whole blood hemoglobin A1c/t otal hemoglobin ratio (mass fraction)Ordered By: Robbin Carlos on 01-22-2023 HbA1c (Bld) [Mass fraction] 6.4 % 3.8-5.6 [facility] Comment on above: Normal < 5.7 % Predi abetic 5.7 - 6.4 % Diabetic >or= 6.5 % Please note range changes. SARS-CoV-2 (COVID-19) Ag IA. rapid Ql (Resp)Ordered By: Robbin Carlos on 01-21-2023 COVID-19 virus antigen assay SARS-CoV-2 (COVID 19) [facility] SARS-CoV-2 Antigen (Rapid) SARS-CoV-2 (COVID 19) [facility] COVID-19 virus antigen assay SARS-CoV-2 (COVID 19) [facility] Glucose Glucometer (BldC) [M ass/Vol]Ordered By: Robbin Carlos on 01-18-2023 Glucose [Mass/Vol] 72 mg/dL 74-106 [facility] Comment on above: MANAGEMENT OF PATIEN T CARE PER NURSING PROTOCOL POCT glucose meteron 023 Glucose [Mass/Vol] 98 mg/dL 70 - 100 mg/dL [facility] Interpretation and review of laboratory results Normal [facility] Performed by: [facility], [address] [place] [id number] CLIA ID: [id number] [facility] POCT glucose meteron 023 Glucose [Mass/Vol] 98 mg/dL 70 - 100 mg/dL [facility] Interpretation and review of laboratory results Normal [facility] Performed by: [facility], [address] [place] [id number] CLIA ID: [id number] [facility] POCT glucose meteron 023 Glucose [Mass/Vol] 157 mg/dL High 70 - 100 mg/dL [facility] Interpretation and review of laboratory results Abnormal [facility] Performed by: [facility], [address] [place] [id number] CLIA ID: [id number] [facility] Glucose [Mass/Vol] 113 mg/dL High 70 - 100 mg/dL [facility] Interpretation and review of laboratory results Abnormal [facility] Performed by: [facility], [address] [place] [id number] CLIA ID: [id number] [facility] XR Chest Single viewon 01-08 [facility] 1950 [id number] Exam Date/Time: 01/08/2023 05:19 Procedure: XR CHEST [...] MD Electronically Signed Date/Time: 01/08/2023 7:43 AM [facility] Gómez Calvert MD - 01/08/2023 Patient Name: LACY ALVARADO : 1950 [facility]#: [id number] Exam Date/Time: 01/08/2023 05:19 Procedure: XR CHEST [...] Electronically Signed Date/Time: 01/08/2023 7:43 AM EDT [facility] Radiology Study observation (narrative) [facility] Basic metabolic 1998 panelon 01-07-2023 Anion gap [Moles/Vol] 9 mmol/L 3 - 13 mmol/L [facility] Calcium [Mass/Vol] 8.5 mg/dL 8.4 - 10. 4 mg/dL [facility] Chloride [Moles/Vol] 101 mmol/L 98 - 10 7 mmol/L [facility] CO2 [Moles/Vol] 27 mmol/L 22 - 30 mmol/L [facility] Creatinine [Mass/Vol] 0.91 mg/dL 0.52 - 1.04 mg/dL [facility] GFR/1.73 sq M.predicted MDRD (S/P/Bld) [Vol rate/Area] 68.0 mL/min/{1.73_m2} - PINF [facility] Comment on above: Calculation based on the Chronic Kidney Disease Epidemiology Collaboration (CKD-EPI) equation refit without adjustment for race Glucose [Mass/Vol] 83 mg/dL 70 - 100 mg/dL [facility] Potassium [Moles/Vol] 4.2 mmol/L 3.5 - 5.1 mmol/L [facility] Sodium [Moles/Vol] 137 mmol/L 135 - 145 mmol/L [facility] Urea nitrogen [Mass/Vol] 30 mg/dL High 7 - 17 mg/dL [facility] CBC panel Auto (Bld)Ordered By: Ekaterina Fountain on 01-07-2023 Erythrocyte distribution width (RBC) [Ratio] 15.8 % High 11.5 - 14.5 % [facility] Hematocrit (Bld) [Volume fraction] 30.0 % Low 35.0 - 47.0 % [facility] Hemoglobin (Bld) [Mass/Vol] 10.3 g/dL Low 11.7 - 16.0 g/dL [facility] Interpretation and review of laboratory results Abnormal [facility] MCH (RBC) [Entitic mass] 32.0 pg 26.0 - 34.0 pg [facility] [place] MCHC (RBC) [Mass/Vol] 34.2 % 32.0 - 36.0 % [facility] MCV (RBC) [Entitic vol] 93.7 fL 80.0 - 98.0 fL [facility] Platelet mean volume (Bld) [Entitic vol] 9.1 fL 7.4 - 12.4 fL [facility] Platelets (Bld) [#/Vol] 162 10*3/uL 140 - 440 10*3/uL [facility] RBC (Bld) [#/Vol] 3.21 10*6/uL Low 3.8 - 5.20 10*6/uL [facility] WBC (Bld) [#/Vol] 5.4 10*3/uL 3.6 - 10.7 10*3/uL [facility] Magnesiumon 01-07-2023 Magnesium [Mass/Vol] 2.4 mg/dL High 1.6 - 2 .3 mg/dL [facility] No Panel Informationon 01-07 Interpretation and review of laboratory results Abnormal [facility] POCT glucose meteron 023 Glucose [Mass/Vol] 102 mg/dL High 70 - 100 mg/dL [facility] Interpretation and review of laboratory results Abnormal [facility] Performed by: [facility], [address] [place] [address] CLIA ID: [id number] [facility] Glucose [Mass/Vol] 118 mg/dL High 70 - 100 mg/dL [facility] Interpretation and review of laboratory results Abnormal [facility] Performed by: [facility], [address] [place] [address] CLIA ID: [id number] [email or web address] Glucose [Mass/Vol] 124 mg/dL High 70 - 100 mg/dL [facility] Interpretation and review of laboratory results Abnormal [facility] mymission2 Performed by: [employer], [address] [place] [address] CLIA ID: [id number] [email or web address] Progress Noteon 01-07-2023 Progress Note [employer] Operations Vice President al Medicine Division of Endocrinology, Diabetes, & Metabolism Endocrinology Note Patient Name: Lacy Alvarado : 1950 AGE: 72 y.o. Room/Bed: T1-103/T1-103 A Admission Date: 01/01/2023 Visit Date: 01/07/2023 Reason for Endocrine Consult: post op heart Provider/Team Requesting Consult: cts PCP: MAYDA GARCIA Outpt Mail List Processor: No ASSESSMENT: DM 2 with hyperglycemia without retirement insulin Stress hyperglycemia CAD s/p Cabgx4 PLAN: [...] Oral, Daily (more content not included)... Normal [facility] Progress Note Physical Therapy Facility/Department: [facility] Physical Therapy Daily Treatment Note NAME: Lacy Alvarado : 1950 Date of Service: 01/07/2023 Discharge Recommendations: IP Rehab, [facility] Facility PT Equipment Recommendations Equipment Needed: No [...] The primary encounter diagnosis was CAD in [place] artery. A diagnosis of Coronary artery disease involving coronary bypass graft, unspecified whether angina present, unspecified whether [place] or transplanted heart was also pertinent to this visit. has a past medical history of CHF (congestive heart failure) (CMS/HCC) ([facility]), Diabetes mellitus ([facility]), GERD (gastroesophageal reflux disease), Hyperlipidemia, Hypertension, RA (rheumatoid arthritis) ([facility]), Seizure ([facility]), Seizures ([facility]), and Sleep apnea. has a past [...] / Caregiver Present: No Diagnosis: CAD in [place] artery s/p CABG on 01/01 Follows Commands: [...] for pur (more content not included)... Normal [facility] XR CHEST 1 VIEWon 01-07-2023 XR [...] Signed Date/Time: 01/07/2023 7:57 AM EDT Normal [facility] XR Chest Single viewon 01-07 Impression: As above. Report Dictated on Electronically Signed By: Nely Pierce MD Electronically Signed Date/Time: 01/07/2023 7:57 AM EDT [facility] Patient Name: LACY SAVAGE : 1950 Exam Date/Time: 01/07/2023 05:18 Procedure: XR CHEST 1 VIEW Ordering Provider: WEAVER JENNIFER Reason For Exam: Shortness of breath Examination: Portable chest Indication: Shortness of breath Comparison: Previous day Findings: The cardiac silhouette is enlarged with median sternotomy changes. Suspect small pleural effusions. No gross consolidation or sizable infiltrate noted. No sizable pneumothorax. [facility] Nely Pierce MD - 01/07/2023 Patient Name: [...] Electronically Signed Date/Time: 01/07/2023 7:57 AM EDT [facility] Radiology Study observation (narrative) [facility] mymission2 XR Chest Single viewOrdered By: Nely Pierce on 01-07-2023 [facility] mymission2 Work Phone: Basic metabolic 1998 panelon 01-06-2023 Anion gap [Moles/Vol] 11 mmol/L 3 - 13 mmol/L [facility] mymission2 Calcium [Mass/Vol] 8.6 mg/dL 8.4 - 10. 4 mg/dL [facility] mymission2 Chloride [Moles/Vol] 98 mmol/L 98 - 10 7 mmol/L [facility] CO2 [Moles/Vol] 27 mmol/L 22 - 30 mmol/L [facility] mymission2 Creatinine [Mass/Vol] 0.99 mg/dL 0.52 - 1.04 mg/dL [facility] mymission2 GFR/1.73 sq M.predicted MDRD (S/P/Bld) [Vol rate/Area] 61.5 mL/min/{1.73_m2} - PINF [facility] Comment on above: Calculation based on the Chronic Kidney Disease Epidemiology Collaboration (CKD-EPI) equation refit without adjustment for race Glucose [Mass/Vol] 95 mg/dL 70 - 100 mg/dL [facility] Potassium [Moles/Vol] 3.9 mmol/L 3.5 - 5.1 mmol/L [facility] mymission2 Sodium [Moles/Vol] 136 mmol/L 135 - 145 mmol/L [facility] mymission2 Urea nitrogen [Mass/Vol] 39 mg/dL High 7 - 17 mg/dL [facility] mymission2 CARECO[facility] 01-06-2023 [facility], too functional. Updated patient at bedside and alyssa Bhupinder (HCPOA) over the phone. 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 Will updated PEDROZA PACC, CTS DIRECTOR OF REGULATORY AFFAIRS aware. Normal [facility] CBC panel Auto (Bld)Ordered By: Farhat Curtis on 01-06-2023 Erythrocyte distribution width (RBC) [Ratio] 16.2 % High 11.5 - 14.5 % [facility] Hematocrit (Bld) [Volume fraction] 30.7 % Low 35.0 - 47.0 % [facility] Hemoglobin (Bld) [Mass/Vol] 10.2 g/dL Low 11.7 - 16.0 g/dL [facility] Interpretation and review of laboratory results Abnormal [facility] MCH (RBC) [Entitic mass] 31.7 pg 26.0 - 34.0 pg [facility] MCHC (RBC) [Mass/Vol] 33.3 % 32.0 - 36.0 % [facility] MCV (RBC) [Entitic vol] 95.3 fL 80.0 - 98.0 fL [facility] Platelet mean volume (Bld) [Entitic vol] 9.2 fL 7.4 - 12.4 fL [facility] Platelets (Bld) [#/Vol] 141 10*3/uL 140 - 440 10*3/uL [facility] RBC (Bld) [#/Vol] 3.22 10*6/uL Low 3.8 - 5.20 10*6/uL [facility] WBC (Bld) [#/Vol] 5.6 10*3/uL 3.6 - 10.7 10*3/uL [facility] Magnesiumon 01-06-2023 Magnesium [Mass/Vol] 2.7 mg/dL High 1.6 - 2 .3 mg/dL [facility] No Panel Informationon 01-06 Interpretation and review of laboratory results Abnormal [facility] POCT glucose meteron 023 Glucose [Mass/Vol] 106 mg/dL High 70 - 100 mg/dL [facility] Interpretation and review of laboratory results Abnormal [facility] Performed by: [facility], [address] [place] [address] CLIA ID: [id number] [facility] Glucose [Mass/Vol] 97 mg/dL 70 - 100 mg/dL [facility] Interpretation and review of laboratory results Normal [facility] Performed by: [facility] [employer] [facility], [address] [place] [address] CLIA ID: [id number] [facility] Glucose [Mass/Vol] 109 mg/dL High 70 - 100 mg/dL [facility] Interpretation and review of laboratory results Abnormal [facility] Performed by: [facility] [employer] [facility], [address] [place] [address] CLIA ID: [id number] [facility] Progress Noteon 01-06-2023 Progress Note Occupational Therapy [...] The primary encounter diagnosis was CAD in [place] artery. A diagnosis of Coronary artery disease involving coronary bypass graft, unspecified whether angina present, unspecified whether [place] or transplanted heart was also pertinent to this visit. has a past medical history of CHF (congestive heart failure) ([facility]/HCC) ([facility]), Diabetes mellitus ([facility]), GERD (gastroesophageal reflux disease), Hyperlipidemia, Hypertension, RA (rheumatoid arthritis) ([facility]), Seizure ([facility]), Seizures ([facility]), and Sleep apnea. has a past [...] Raw Score (more content not included)... Normal [facility] Progress Note Physical Therapy Facility/Department: [facility] Physical Therapy Daily Treatment Note NAME: Lacy [...] The primary encounter diagnosis was CAD in [place] artery. A diagnosis of Coronary artery disease involving coronary bypass graft, unspecified whether angina present, unspecified whether [place] or transplanted heart was also pertinent to this visit. has a past medical history of CHF (congestive heart failure) ([facility]/HCC) ([facility]), Diabetes mellitus ([facility]), GERD (gastroesophageal reflux disease), Hyperlipidemia, Hypertension, RA (rheumatoid arthritis) ([facility]), Seizure ([facility]), Seizures ([facility]), and Sleep apnea. has a past [...] / Caregiver Present: No Diagnosis: CAD in [place] artery s/p CABG on 8/31 Follows Commands: Within Functional Limits Subjective Subjective: [...] Restraints Init (more content not included)... Normal [facility] Progress Note ---- -------- Attestation signed [...] of service: 01/06/23 Discussed with: []Residents[x]Patient/Farzana delgado [x]RN []Consultants [x]SW/TCC[]Other [x]SONYA Personally Reviewed: [x]Epic [...] PIV GOC/Family Discussions: Full code -------- Cardiothoracic Surgery/[facility] Progress Note PATIENT NAME: Lacy Alvarado DATE: 01/06/23 HPI: 72 y.o. female was referred by Dr. Bhanu Milian. Patient was admitted on 12/18/22 to [facility] with CP history of CHF, CAD, [...] BMI (Calculated): 33.06 CXR: BMP: Recent Labs 01/04/2330801/05/234001/06/2333 NA 135 137 136 K 3.9 3.8 3.9 CL 100 98 98 CO2 26 27 27 BUN 34* 43* 39* CREATININE 1.11* 1.25* 0.99 CALCIUM 8.5 8.5 8.6 MG 2.6* 2.8* 2.7* CBC: Recent Labs 01/04/2330801/05/231 01/06/23 0034 WBC 7.9 6.7 5.6 HGB [...] [x] N (more content not included)... Normal [facility] XR CHEST 1 VIEWon 01-06-2023 XR CHEST 1 VIEW [facility] 1950 [id number] Exam Date/Time: 01/06/2023 05:16 Procedure: XR CHEST [...] Electronically Signed Date/Time: 01/06/2023 9:27 AM EDT [facility] XR Chest Single viewon 01-06 Layering right effus ion. Atelectasis of the left base. Report Dictated on Electronically Signed By: Eyad Cohen DO Electronically Signed Date/Time: 01/06/2023 9:27 AM EDT [facility] Patient Name: LACY SAVAGE : 1950 Exam Date/Time: 01/06/2023 05:16 Procedure: XR CHEST 1 VIEW Ordering Provider: WEVAER JENNIFER Reason For Exam: Shortness of breath [...] patient has undergone prior open heart surgery. [facility] Eyad Cohen DO - [...] Electronically Signed Date/Time: 01/06/2023 9:27 AM EDT [facility] Radiology Study observation (narrative) [facility] mymission2 XR Chest Single viewOrdered By: Eyad Cohen on 01-06-2023 [facility] mymission2 Work Phone: Basic metabolic 1998 panelon 01-05-2023 Anion gap [Moles/Vol] 11 mmol/L 3 - 13 mmol/L [facility] mymission2 Calcium [Mass/Vol] 8.5 mg/dL 8.4 - 10. 4 mg/dL [facility] mymission2 Chloride [Moles/Vol] 98 mmol/L 98 - 10 7 mmol/L [facility] mymission2 CO2 [Moles/Vol] 27 mmol/L 22 - 30 mmol/L [facility] mymission2 Creatinine [Mass/Vol] 1.25 mg/dL High 0.52 - 1.04 mg/dL [facility] mymission2 GFR/1.73 sq M.predicted MDRD (S/P/Bld) [Vol rate/Area] 46.5 mL/min/{1.73_m2} Low - PINF [facility] Comment on above: Calculation based on the Chronic Kidney Disease Epidemiology Collaboration (CKD-EPI) equation refit without adjustment for race Glucose [Mass/Vol] 98 mg/dL 70 - 100 mg/dL [facility] mymission2 Potassium [Moles/Vol] 3.8 mmol/L 3.5 - 5.1 mmol/L [facility] mymission2 Sodium [Moles/Vol] 137 mmol/L 135 - 145 mmol/L [facility] mymission2 Urea nitrogen [Mass/Vol] 43 mg/dL High 7 - 17 mg/dL [facility] CBC panel Auto (Bld)on 01-05 Erythrocyte distribution width (RBC) [Ratio] 16.0 % High 11.5 - 14.5 % [facility] Hematocrit (Bld) [Volume fraction] 28.7 % Low 35.0 - 47.0 % [facility] Hemoglobin (Bld) [Mass/Vol] 9.9 g/dL Low 11.7 - 16.0 g/dL [facility] Interpretation and review of laboratory results Abnormal [facility] MCH (RBC) [Entitic mass] 32.1 pg 26.0 - 34.0 pg [facility] MCHC (RBC) [Mass/Vol] 34.3 % 32.0 - 36.0 % [facility] MCV (RBC) [Entitic vol] 93.5 fL 80.0 - 98.0 fL [facility] Platelet mean volume (Bld) [Entitic vol] 9.9 fL 7.4 - 12.4 fL [facility] Platelets (Bld) [#/Vol] 114 10*3/uL Low 140 - 440 10*3/uL [facility] RBC (Bld) [#/Vol] 3.07 10*6/uL Low 3.8 - 5.20 10*6/uL [facility] WBC (Bld) [#/Vol] 6.7 10*3/uL 3.6 - 10.7 10*3/uL [facility] Magnesiumon 01-05-2023 Magnesium [Mass/Vol] 2.8 mg/dL High 1.6 - 2 .3 mg/dL [facility] mymission2 No Panel Informationon 01-05 Interpretation and review of laboratory results Abnormal [facility] Blood Expiration Date S [facility] Crossmatch interpretation COMP [facility] mymission2 Dispense Status Released from [employer] [facility] mymission2 Product Blood Type 5100 [facility] mymission2 PRODUCT CODE [id number] [facility] Unit ABO O [facility] Unit RH Positive [facility] Unit Volume 300 mL [facility] mymission2 POCT glucose meteron 023 Glucose [Mass/Vol] 105 mg/dL High 70 - 100 mg/dL [facility] Interpretation and review of laboratory results Abnormal [facility] mymission2 Performed by: [facility], [address] [place], [place] [id number] CLIA ID: [id number] [facility] Glucose [Mass/Vol] 110 mg/dL High 70 - 100 mg/dL [employer] mymission2 Interpretation and review of laboratory results Abnormal [facility] mymission2 Performed by: [facility], [address] [place] [address] CLIA ID: [id number] [facility] [employer] Prepare RBC: 2 Unitson 01-05 Unit Number [id number] Raiing Unit Number [id number] [facility] Progress Noteon 01-05-2023 Progress Note Department of [employer] Operations Vice President al Medicine Division of Endocrinology, Diabetes, & Metabolism Endocrinology Note Patient Name: Lacy Alvarado : 1950 AGE: 72 y.o. Room/Bed: [facility] A Admission Date: 01/01/2023 Visit Date: 01/05/2023 Reason for Endocrine Consult: post op heart Provider/Team Requesting Consult: cts PCP: MAYDA GARCIA Outpt Mail List Processor: No ASSESSMENT: DM 2 with hyperglycemia without retirement insulin Stress hyperglycemia CAD s/p Cabgx4 PLAN: [...] polyethylene gly (more content not included)... Normal [facility] Progress Note ---- -------- Attestation signed [...] Cardiothoracic Surgery/CCM Progress Note PATIENT NAME: Lacy Alvardao DATE: 01/05/23 HPI: Lacy Alvarado is a 72 y.o. female was referred to us by Dr. Bhanu Milian. Patient was admitted on 12/18/22 to [facility] with CP history of CHF, CAD, [...] lasix today. (more content not included)... Normal [facility] XR CHEST 1 VIEWon 01-05-2023 XR CHEST 1 VIEW Patient Name: LACY SAVAGE : 1950 [facility] [id number] Exam Date/Time: 01/05/2023 05:19 Procedure: XR CHEST [...] Electronically Signed Date/Time: 01/05/2023 5:37 AM EDT [facility] XR Chest Single viewon 01-05 See findings. Report Dictated on Electronically Signed By: Jake Vasquez MD Electronically Signed Date/Time: 01/05/2023 5:37 AM EDT [facility] Patient Name: [facility]AC[facility] 1950 [id number] Exam Date/Time: 01/05/2023 05:19 Procedure: XR CHEST [...] unremarkable. Bones: No acute osseous process identified. [facility] Jake Vasquez MD - 01/05/2023 Patient Name: [facility]AC[facility]AD[facility] 1950 [id number] Exam Date/Time: 01/05/2023 05:19 Procedure: XR CHEST [...] Electronically Signed Date/Time: 01/05/2023 5:37 AM EDT [facility] Radiology Study observation (narrative) [employer] mymission2 XR Chest Single viewOrdered By: Jake Vasquez on 01-05-2023 [facility] mymission2 Work Phone: Basic metabolic 1998 panelon 01-04-2023 Anion gap [Moles/Vol] 8 mmol/L 3 - 13 mmol/L [facility] mymission2 Calcium [Mass/Vol] 8.5 mg/dL 8.4 - 10. 4 mg/dL [facility] mymission2 Chloride [Moles/Vol] 100 mmol/L 98 - 10 7 mmol/L [facility] mymission2 CO2 [Moles/Vol] 26 mmol/L 22 - 30 mmol/L [facility] mymission2 Creatinine [Mass/Vol] 1.11 mg/dL High 0.52 - 1.04 mg/dL [facility] mymission2 GFR/1.73 sq M.predicted MDRD (S/P/Bld) [Vol rate/Area] 53.6 mL/min/{1.73_m2} Low - PINF [facility] Comment on above: Calculation based on the Chronic Kidney Disease Epidemiology Collaboration (CKD-EPI) equation refit without adjustment for race Glucose [Mass/Vol] 97 mg/dL 70 - 100 mg/dL [facility] mymission2 Potassium [Moles/Vol] 3.9 mmol/L 3.5 - 5.1 mmol/L [facility] mymission2 Sodium [Moles/Vol] 135 mmol/L 135 - 145 mmol/L [facility] mymission2 Urea nitrogen [Mass/Vol] 34 mg/dL High 7 - 17 mg/dL [facility] mymission2 CBC panel Auto (Bld)Ordered By: Thien Sinha on 01-04-2023 Erythrocyte distribution width (RBC) [Ratio] 16.0 % High 11.5 - 14.5 % [facility] Hematocrit (Bld) [Volume fraction] 29.0 % Low 35.0 - 47.0 % [facility] Hemoglobin (Bld) [Mass/Vol] 9.9 g/dL Low 11.7 - 16.0 g/dL [facility] Interpretation and review of laboratory results Abnormal [facility] MCH (RBC) [Entitic mass] 31.9 pg 26.0 - 34.0 pg [facility] MCHC (RBC) [Mass/Vol] 34.1 % 32.0 - 36.0 % [facility] MCV (RBC) [Entitic vol] 93.4 fL 80.0 - 98.0 fL [facility] Platelet mean volume (Bld) [Entitic vol] 9.2 fL 7.4 - 12.4 fL [facility] Platelets (Bld) [#/Vol] 87 10*3/uL Low 140 - 440 10*3/uL [facility] RBC (Bld) [#/Vol] 3.10 10*6/uL Low 3.8 - 5.20 10*6/uL [facility] WBC (Bld) [#/Vol] 7.9 10*3/uL 3.6 - 10.7 10*3/uL [facility] Magnesiumon 01-04-2023 Magnesium [Mass/Vol] 2.6 mg/dL High 1.6 - 2 .3 mg/dL [facility] mymission2 No Panel Informationon 01-04 Interpretation and review of laboratory results Abnormal [facility] POCT glucose meteron 023 Glucose [Mass/Vol] 116 mg/dL High 70 - 100 mg/dL [facility] Interpretation and review of laboratory results Abnormal [facility] Performed by: [facility], [address] [place], [place] [id number] CLIA ID: [id number] [facility] Glucose [Mass/Vol] 119 mg/dL High 70 - 100 mg/dL [facility] Interpretation and review of laboratory results Abnormal [facility] Performed by: [facility] [employer] [facility], [address] [place] [id number] CLIA ID: [id number] [facility] Glucose [Mass/Vol] 122 mg/dL High 70 - 100 mg/dL [facility] Interpretation and review of laboratory results Abnormal [facility] Performed by: [facility] [employer] [facility], [address] [place] [address] CLIA ID: [id number] [facility] Progress Noteon 01-04-2023 Progress Note [...] observe for. Will continue to monitor. Normal [facility] Progress Note Physical Therapy Facility/Department: [facility] Physical [...] The primary encounter diagnosis was CAD in [place] artery. A diagnosis of Coronary artery disease involving coronary bypass graft, unspecified whether angina present, unspecified whether [place] or transplanted heart was also pertinent to this visit. has a past medical history of CHF (congestive heart failure) (CMS/HCC) ([facility]), Diabetes mellitus (HCC), GERD (gastroesophageal reflux disease), Hyperlipidemia, Hypertension, RA (rheumatoid arthritis) ([facility]), Seizure (HCC), Seizures ([facility]), and Sleep apnea. has a past [...] / Caregiver Present: No Diagnosis: CAD in [place] artery s/p CABG on 01/01 Follows Commands: [...] (Progressing) Start: 01/02/23 (more content not included)... [facility] Progress Note [employer] Operations Vice President al Medicine Division of Endocrinology, Diabetes, & Metabolism Endocrinology Note Patient Name: Lacy Alvarado : 1950 AGE: 72 y.o. Room/Bed: T1-103/T1-103 A Admission Date: 01/01/2023 Visit Date: 01/04/2023 Reason for Endocrine Consult: post op heart Provider/Team Requesting Consult: cts PCP: MAYDA GARCIA Outpt Mail List Processor: No ASSESSMENT: DM 2 with hyperglycemia without extermination inspector insulin Stress hyperglycemia CAD s/p Cabgx4 PLAN: [...] 0-6 Units, SubCUTAneo (more content not included)... [facility] XR CHEST 1 VIEWon 01-04-2023 XR CHEST [...] Electronically Signed Date/Time: 01/04/2023 7:18 AM EDT [facility] XR Chest Single viewon 01-04 No significant change when compared with the previous study. Report Dictated on Electronically Signed By: Dino Jurado MD Electronically Signed Date/Time: 01/04/2023 7:18 AM EDT [facility] Patient Name: LACY SAVAGE [...] There are degenerative changes of the spine. [facility] Dion Jurado MD - 01/04/2023 [facility] Name[facility] 1950 [id number] Exam Date/Time: 01/04/2023 05:18 Procedure: XR CHEST [...] Electronically Signed Date/Time: 01/04/2023 7:18 AM EDT [facility] Radiology Study observation (narrative) [facility] Basic metabolic 1998 panelon 01-03-2023 Anion gap [Moles/Vol] 7 mmol/L 3 - 13 mmol/L [facility] mymission2 Calcium [Mass/Vol] 8.5 mg/dL 8.4 - 10. 4 mg/dL [facility] Chloride [Moles/Vol] 103 mmol/L 98 - 10 7 mmol/L [facility] CO2 [Moles/Vol] 25 mmol/L 22 - 30 mmol/L [facility] Creatinine [Mass/Vol] 0.80 mg/dL 0.52 - 1.04 mg/dL [facility] GFR/1.73 sq M.predicted MDRD (S/P/Bld) [Vol rate/Area] 79.4 mL/min/{1.73_m2} - PINF [facility] Comment on above: Calculation based on the Chronic Kidney Disease Epidemiology Collaboration (CKD-EPI) equation refit without adjustment for race Glucose [Mass/Vol] 113 mg/dL High 70 - 100 mg/dL [facility] Interpretation and review of laboratory results Abnormal [facility] Potassium [Moles/Vol] 4.4 mmol/L 3.5 - 5.1 mmol/L [facility] Sodium [Moles/Vol] 136 mmol/L 135 - 145 mmol/L [facility] Urea nitrogen [Mass/Vol] 23 mg/dL High 7 - 17 mg/dL [facility] CBC panel Auto (Bld)Ordered By: Igor Gar on 01-03-2023 Erythrocyte distribution width (RBC) [Ratio] 16.7 % High 11.5 - 14.5 % [facility] Hematocrit (Bld) [Volume fraction] 29.5 % Low 35.0 - 47.0 % [facility] Hemoglobin (Bld) [Mass/Vol] 10.1 g/dL Low 11.7 - 16.0 g/dL [facility] Interpretation and review of laboratory results Abnormal [facility] MCH (RBC) [Entitic mass] 31.8 pg 26.0 - 34.0 pg [facility] MCHC (RBC) [Mass/Vol] 34.1 % 32.0 - 36.0 % [facility] MCV (RBC) [Entitic vol] 93.3 fL 80.0 - 98.0 fL [facility] Platelet mean volume (Bld) [Entitic vol] 9.1 fL 7.4 - 12.4 fL [facility] Platelets (Bld) [#/Vol] 82 10*3/uL Low 140 - 440 10*3/uL [facility] RBC (Bld) [#/Vol] 3.16 10*6/uL Low 3.8 - 5.20 10*6/uL [facility] WBC (Bld) [#/Vol] 8.6 10*3/uL 3.6 - 10.7 10*3/uL [facility] IDNon 01-03-2023 IDN Problem: Knowledge [...] Goal: Assess Nutritional Intake Outcome: Progressing Normal [facility] SHS Magnesiumon 01-03-2023 Magnesium [Mass/Vol] 2.3 mg/dL 1.6 - 2 .3 mg/dL [facility] Magnesium [Mass/Vol]on 01-03 Interpretation and review of laboratory results Normal [facility] No Panel Informationon 01-03 [facility] mymission2 POCT glucose meteron 023 Glucose [Mass/Vol] 150 mg/dL High 70 - 100 mg/dL [facility] Interpretation and review of laboratory results Abnormal [facility] Performed by: [facility], [address] [place] [address] CLIA ID: [id number] [facility] Glucose [Mass/Vol] 135 mg/dL High 70 - 100 mg/dL [facility] Interpretation and review of laboratory results Abnormal [facility] Performed by: [facility], [address] [place] [address] CLIA ID: [id number] [facility] Glucose [Mass/Vol] 133 mg/dL High 70 - 100 mg/dL [facility] Interpretation and review of laboratory results Abnormal [facility] Performed by: [facility], [address] [place] [address] CLIA ID: [id number] [facility] PROTIME/INR & PTTon 01-04-20 aPTT Coag (PPP) [Time] 31.7 s High 20.0 - 30.5 s [facility] INR Coag (PPP) [Relative time] 1.1 {INR} 0.9 - 1.1 [facility] Comment on above: Recommended Anticoag ulant Therapy: [...] Abnormal [facility] PT Coag (Bld) [Time] 11.6 s 9.0 - 12.0 s [facility] mymission2 Progress Noteon 01-03-2023 Progress Note [employer] Vice President al Medicine Division of Endocrinology, Diabetes, & Metabolism Endocrinology Note Patient Name: Lacy Alvarado : 1950 AGE: 72 y.o. Room/Bed: T1-103/T1-103 A Admission Date: 01/01/2023 Visit Date: 01/03/2023 Reason for Endocrine Consult: post op heart Provider/Team Requesting Consult: cts PCP: MAYDA GARCIA Outpt Mail List Processor: No ASSESSMENT: DM 2 with hyperglycemia without extermination inspector insulin Stress hyperglycemia CAD s/p Cabgx4 PLAN: [...] Daily magn (more content not included)... Normal [facility] XR CHEST 1 VIEWon 01-03-2023 XR CHEST 1 VIEW Patient Name: LACY SAVAGE : 1950 [facility]#: [id number] Exam Date/Time: 01/03/2023 05:54 Procedure: XR CHEST [...] Electronically Signed Date/Time: 01/03/2023 10:16 AM EDT [facility] SHS XR Chest Single viewon 01-03 No significant change when compared with the previous study. Report Dictated on Electronically Signed By: Dino Jurado MD Electronically Signed Date/Time: 01/03/2023 10:16 AM EDT [facility] Patient Name: LACY SAVAGE : 1950 [...] are degenerative changes of the spine. [facility] Dino Jurado MD - 01/03/2023 Patient Name: [...] Electronically Signed Date/Time: 01/03/2023 10:16 AM EDT [facility] Radiology Study observation (narrative) [facility] XR Chest Single viewOrdered By: Dino Jurado on 01-03-2023 [facility] mymission2 Work Phone: [phone] 01-02-2023 [id number] [employer] Employee following case for Discharge Needs. Normal [facility] SHS Basic metabolic 1998 panelon 01-02-2023 Anion gap [Moles/Vol] 10 mmol/L 3 - 13 mmol/L [facility] Calcium [Mass/Vol] 8.7 mg/dL 8.4 - 10. 4 mg/dL [facility] Chloride [Moles/Vol] 107 mmol/L 98 - 10 7 mmol/L [facility] CO2 [Moles/Vol] 23 mmol/L 22 - 30 mmol/L [facility] Creatinine [Mass/Vol] 0.99 mg/dL 0.52 - 1.04 mg/dL [facility] GFR/1.73 sq M.predicted MDRD (S/P/Bld) [Vol rate/Area] 61.5 mL/min/{1.73_m2} - PINF [facility] Comment on above: Calculation based on the Chronic Kidney Disease Epidemiology Collaboration (CKD-EPI) equation refit without adjustment for race Glucose [Mass/Vol] 104 mg/dL High 70 - 100 mg/dL [facility] Interpretation and review of laboratory results Abnormal [facility] Potassium [Moles/Vol] 4.5 mmol/L 3.5 - 5.1 mmol/L [facility] Sodium [Moles/Vol] 140 mmol/L 135 - 145 mmol/L [facility] Urea nitrogen [Mass/Vol] 20 mg/dL High 7 - 17 mg/dL [facility] Anion gap [Moles/Vol] 13 mmol/L 3 - 13 mmol/L [facility] Calcium [Mass/Vol] 8.3 mg/dL Low 8.4 - 10. 4 mg/dL [facility] mymission2 Chloride [Moles/Vol] 107 mmol/L 98 - 10 7 mmol/L [facility] mymission2 CO2 [Moles/Vol] 21 mmol/L Low 22 - 30 mmol/L [facility] mymission2 Creatinine [Mass/Vol] 0.86 mg/dL 0.52 - 1.04 mg/dL [facility] GFR/1.73 sq M.predicted MDRD (S/P/Bld) [Vol rate/Area] 72.8 mL/min/{1.73_m2} - PINF [facility] Comment on above: Calculation based on the Chronic Kidney Disease Epidemiology Collaboration (CKD-EPI) equation refit without adjustment for race Glucose [Mass/Vol] 134 mg/dL High 70 - 100 mg/dL [facility] mymission2 Interpretation and review of laboratory results Abnormal [facility] mymission2 Potassium [Moles/Vol] 4.5 mmol/L 3.5 - 5.1 mmol/L [facility] mymission2 Sodium [Moles/Vol] 140 mmol/L 135 - 145 mmol/L [facility] mymission2 Urea nitrogen [Mass/Vol] 19 mg/dL High 7 - 17 mg/dL [facility] mymission2 CARECOORDon 01-02-2023 [facility] Care Managment Initi ct Assessment Date: 01/02/2023 Patient Name: Lacy Alvarado : 1950 Patient Information Source of Information: Patient Cognition/Language: WFL - Within Functional Limits Permission given to speak with patient equal opportunity representative/caregiver as indicated: Yes Confirmation of Payer with patient/family: Yes Payer Name: Anthem Medicare [place]: No Confirmation of Primary Care Physician: Confirmed [...] Living Prescription Coverage: Yes Pharmacy Used: [facility] Medication Management: Independent Transportation/Shopping: Assistance Provider [...] home care needs. Delores Mullins RN Normal [facility] SHS CBC panel Auto (Bld)Ordered By: Maurilio Vidal on 01-02-2023 Erythrocyte distribution width (RBC) [Ratio] 16.8 % High 11.5 - 14.5 % [facility] Hematocrit (Bld) [Volume fraction] 25.7 % Low 35.0 - 47.0 % [facility] Hemoglobin (Bld) [Mass/Vol] 8.7 g/dL Low 11.7 - 16.0 g/dL [facility] Interpretation and review of laboratory results Abnormal [facility] MCH (RBC) [Entitic mass] 31.3 pg 26.0 - 34.0 pg [facility] MCHC (RBC) [Mass/Vol] 33.9 % 32.0 - 36.0 % [facility] MCV (RBC) [Entitic vol] 92.4 fL 80.0 - 98.0 fL [facility] Platelet mean volume (Bld) [Entitic vol] 9.0 fL 7.4 - 12.4 fL [facility] Platelets (Bld) [#/Vol] 80 10*3/uL Low 140 - 440 10*3/uL [facility] RBC (Bld) [#/Vol] 2.79 10*6/uL Low 3.8 - 5.20 10*6/uL [facility] WBC (Bld) [#/Vol] 6.1 10*3/uL 3.6 - 10.7 10*3/uL [facility] ECG 12 leadOrdered By: Slava Martins on 01-02-2023 Heart rate 95 /min bpm [facility] mymission2 Work Phone: P [place] 53 degrees [facility] mymission2 Work Phone: WA Interval 183 ms [facility] mymission2 Work Phone: QRS [place] 20 degrees [facility] mymission2 Work Phone: QRSD Interval 86 ms [facility] mymission2 Work Phone: QT Interval 380 ms [facility] mymission2 Work Phone: QTC Interval 480 ms [facility] mymission2 Work Phone: T Wave [place] 27 degrees [facility] mymission2 Work Phone: [facility] mymission2 Work Phone: ECG 12 leadon 01-02-2023 Sinus rhythm Electronically Signed On 01-02-2023 9:42:47 EDT by Michelle Stanley MD - 01/02/2023 IMPRESSION: Sinus rhythm Electronically Signed On 01-02-2023 9:42:47 EDT [facility] Heart rate 102 /min bpm [facility] mymission2 P [place] 56 degrees [facility] mymission2 [place] Interval 147 ms [facility] mymission2 QRS [place] 6 degrees [facility] mymission2 QRSD Interval 70 ms [facility] mymission2 QT Interval 332 ms [facility] QTC Interval 433 ms [facility] mymission2 T Wave [place] 29 degrees [facility] Sinus tachycardia Probable left atrial enlargement Minimal ST elevation, inferior leads Electronically Signed On 01-02-2023 8:55:59 EDT by Michelle Stanley MD - 01/02/2023 IMPRESSION: Sinus tachycardia Probable left atrial enlargement Minimal ST elevation, inferior leads Electronically Signed On 01-02-2023 8:55:59 EDT by Ot ECG 12-LEADon 01-02-2023 ECG 12-LEAD IMPRESSION: Sinus rhythm Electronically Signed On 01-02-2023 9:42:47 [facility] IMPRESSION: Sinus tachycardia Probable left atrial enlargement Minimal ST elevation, inferior leads Electronically Signed On 01-02-2023 8:55:59 EDT [facility] Magnesiumon 01-02-2023 Magnesium [Mass/Vol] 2.3 mg/dL 1.6 - 2 .3 mg/dL [facility] Magnesium [Mass/Vol]on 01-02 Interpretation and review of laboratory results Normal [facility] mymission2 No Panel Informationon 01-02 [facility] mymission2 POCT glucose meteron 023 Glucose [Mass/Vol] 116 mg/dL High 70 - 100 mg/dL [facility] Interpretation and review of laboratory results Abnormal [facility] mymission2 Performed by: [facility] [employer] [facility], [address] [place] [address] CLIA ID: [id number] [facility] Glucose [Mass/Vol] 121 mg/dL High 70 - 100 mg/dL [facility] Interpretation and review of laboratory results Abnormal [facility] Performed by: [facility] [employer] [facility], [address] [place] [address] CLIA ID: [id number] [facility] mymission2 [facility] Glucose [Mass/Vol] 121 mg/dL High 70 - 100 mg/dL [facility] Interpretation and review of laboratory results Abnormal [facility] mymission2 Performed by: [facility] [employer] [facility], [address] [place] [address] CLIA ID: [id number] [facility] Glucose [Mass/Vol] 132 mg/dL High 70 - 100 mg/dL [facility] Interpretation and review of laboratory results Abnormal [facility] Performed by: [facility] [employer] [facility], [address] [place] [address] CLIA ID: [id number] [facility] Glucose [Mass/Vol] 132 mg/dL High 70 - 100 mg/dL [facility] Interpretation and review of laboratory results Abnormal [facility] Performed by: [facility], [address] [place] [address] CLIA ID: [id number] [facility] Glucose [Mass/Vol] 120 mg/dL High 70 - 100 mg/dL [facility] Interpretation and review of laboratory results Abnormal [facility] Performed by: [facility], [address] [place] [address] CLIA ID: [id number] [facility] Glucose [Mass/Vol] 145 mg/dL High 70 - 100 mg/dL [facility] Interpretation and review of laboratory results Abnormal [facility] Performed by: [facility], [address] [place] [address] CLIA ID: [id number] [facility] Glucose [Mass/Vol] 136 mg/dL High 70 - 100 mg/dL [facility] Interpretation and review of laboratory results Abnormal [facility] Performed by: [facility], [address] [place] [address] CLIA ID: [id number] [facility] Glucose [Mass/Vol] 118 mg/dL High 70 - 100 mg/dL [facility] Interpretation and review of laboratory results Abnormal [facility] Performed by: [facility], [address] [place] [address] CLIA ID: [id number] [facility] Glucose [Mass/Vol] 144 mg/dL High 70 - 100 mg/dL [facility] Interpretation and review of laboratory results Abnormal [facility] Performed by: [facility], [address] [place] [address] CLIA ID: [id number] [facility] Glucose [Mass/Vol] 153 mg/dL High 70 - 100 mg/dL [facility] Interpretation and review of laboratory results Abnormal [facility] Performed by: [facility], [address] [place] [address] CLIA ID: [id number] [facility] PROTIME/INR & PTTon 01-03-20 23 aPTT Coag (PPP) [Time] 30.9 s High 20.0 - 30.5 s [facility] INR Coag (PPP) [Relative time] 1.1 {INR} 0.9 - 1.1 [facility] Comment on above: Recommended Anticoag ulant Therapy: [...] Abnormal [facility] PT Coag (Bld) [Time] 11.9 s 9.0 - 12.0 s [facility] Progress Noteon 01-02-2023 Progress Note Physical Therapy Facility/Department: [facility] Physical Therapy Initial Evaluation NAME: Lacy Alvarado [...] The primary encounter diagnosis was CAD in [place] artery. A diagnosis of Coronary artery disease involving coronary bypass graft, unspecified whether angina present, unspecified whether [place] or transplanted heart was also pertinent to this visit. has a past medical history of CHF (congestive heart failure) (CMS/HCC) ([facility]), Diabetes mellitus (HCC), GERD (gastroesophageal reflux disease), Hyperlipidemia, Hypertension, RA (rheumatoid arthritis) ([facility]), Seizure ([facility]), Seizures (HCC), and Sleep apnea. has a [...] / Caregiver Present: No Diagnosis: CAD in [place] artery s/p CABG on 01/01 Follows Commands: Within Functional Limits Subjective Subjective: Pt sitting up in chair and agreed to PT. 9/10 pain reported in chest through incision site. [...] with min (more content not included)... Normal [facility] Progress Note ---- -------- Attestation signed [...] Alvarado : 1950 AGE: 72 y.o. Room[facility]: [facility] A Admission Date: 01/01/2023 Visit Date: 01/02/2023 Reason for Endocrine Consult: post op heart Provider/Team Requesting Consult: cts PCP: MAYDA GARCIA Outpt Mail List Processor: No ASSESSMENT: Cad s/p Cabgx4 Dm2 with hyperglycemia without retirement insulin Stress hyperglycemia Chf Hld/htn PLAN: discontinue [...] Breath sounds: (more content not included)... Normal [facility] Progress Note ---- -------- Attestation signed [...] Milian. Patient was admitted on 12/18/22 to [facility] with CP history of CHF, CAD, [...] thrombocytopenia. Re (more content not included)... Normal [facility] XR CHEST 1 VIEWon 01-02-2023 XR CHEST 1 VIEW [facility] Name[facility] 1950 [id number] Exam Date/Time: 01/02/2023 05:15 Procedure: XR CHEST [...] Electronically Signed Date/Time: 01/02/2023 9:48 AM EDT [facility] XR Chest Single viewon 01-02 Lines, tubes, [...] Electronically Signed Date/Time: 01/02/2023 9:48 AM EDT [facility] Patient Name: LACY SAVAGE : 1950 Exam Date/Time: 01/02/2023 05:15 Procedure: XR CHEST 1 VIEW Ordering Provider: WEAVER JENNIFER Reason For Exam: Shortness of breath EXAMINATION: CHEST RADIOGRAPH (SINGLE VIEW AP OR PA) Clinical History: Shortness of breath Comparison: Chest radiograph 01/01/2023 and 12/29/2022 RESULT: See impression [facility] Johan Ervin MD - 01/02/2023 Patient Name: LACY [facility]ADO [facility] 1950 [id number] Exam Date/Time: 01/02/2023 05:15 Procedure: XR CHEST [...] Electronically Signed Date/Time: 01/02/2023 9:48 AM EDT [facility] mymission2 Radiology Study observation (narrative) [employer] mymission[facility] XR Chest Single viewOrdered By: Johan Ervin on 01-02-2023 [employer] my[facility] Work Phone: Basic metabolic 1998 panelon 01-01-2023 Anion gap [Moles/Vol] 10 mmol/L 3 - 13 mmol/L [facility]mission[facility] Calcium [Mass/Vol] 9.0 mg/dL 8.4 - 10. 4 mg/dL [employer] [facility] Chloride [Moles/Vol] 110 mmol/L High 98 - 10 7 mmol/L [facility] CO2 [Moles/Vol] 20 mmol/L Low 22 - 30 mmol/L [facility]mission2 Creatinine [Mass/Vol] 0.77 mg/dL 0.52 - 1.04 mg/dL [facility] GFR/1.73 sq M.predicted MDRD (S/P/Bld) [Vol rate/Area] 83.1 mL/min/{1.73_m2} - PINF [facility] Comment on above: Calculation based on the Chronic Kidney Disease Epidemiology Collaboration (CKD-EPI) equation refit without adjustment for race Glucose [Mass/Vol] 124 mg/dL High 70 - 100 mg/dL [facility] Potassium [Moles/Vol] 3.6 mmol/L 3.5 - 5.1 mmol/L [facility] Sodium [Moles/Vol] 140 mmol/L 135 - 145 mmol/L [facility] Urea nitrogen [Mass/Vol] 21 mg/dL High 7 - 17 mg/dL [facility] Blood gas, arterialOrdered B y: Arthur Lisa on 01-01-2023 Base excess Calc (Bld) [Moles/Vol] -3.3000 mmol/L Low -3.0 - 3.0 mmol/L [facility]mission2 CO2 (Bld) [Partial pressure] 30.7 mm[Hg] Low - PINF [facility] CO2 [Moles/Vol] 21.4 mmol/L Low 23.0 - 27.0 mmol/L [facility] mymission2 HCO3 (Bld) [Moles/Vol] 20.4 mmol/L Low 21.0 - 25.0 mmol/L [facility] Hemoglobin (Bld) [Mass/Vol] 7.1 g/dL Screen Only [facility] Interpretation and review of laboratory results Abnormal [facility] mymission2 Oxygen (Bld) [Partial pressure] 243.2 mm[Hg] High [facility] mymission2 pH (Bld) 7.441 [pH] 7.350 - 7.450 [facility] Source Of Oxygen Vent [facility] CBC panel Auto (Bld)on 01-01 Erythrocyte distribution width (RBC) [Ratio] 14.2 % 11.5 - 14.5 % [facility] Hematocrit (Bld) [Volume fraction] 20.0 % Low 35.0 - 47.0 % [facility] Hemoglobin (Bld) [Mass/Vol] 6.9 g/dL Critically low 11.7 - 16.0 g/dL [facility] Interpretation and review of laboratory results Abnormal [facility] MCH (RBC) [Entitic mass] 33.1 pg 26.0 - 34.0 pg [facility] MCHC (RBC) [Mass/Vol] 34.3 % 32.0 - 36.0 % [facility] MCV (RBC) [Entitic vol] 96.7 fL 80.0 - 98.0 fL [facility] Platelet mean volume (Bld) [Entitic vol] 8.7 fL 7.4 - 12.4 fL [facility] Platelets (Bld) [#/Vol] 79 10*3/uL Low 140 - 440 10*3/uL [facility] RBC (Bld) [#/Vol] 2.07 10*6/uL Low 3.8 - 5.20 10*6/uL [facility] WBC (Bld) [#/Vol] 9.0 10*3/uL 3.6 - 10.7 10*3/uL [facility] Repeated [facility] CBC panel Auto (Bld)Ordered By: Sadie Jackson on 01-01-2023 Erythrocyte distribution width (RBC) [Ratio] 14.3 % 11.5 - 14.5 % [facility] Hematocrit (Bld) [Volume fraction] 21.4 % Low 35.0 - 47.0 % [facility] Hemoglobin (Bld) [Mass/Vol] 7.2 g/dL Low 11.7 - 16.0 g/dL [facility] Interpretation and review of laboratory results Abnormal [facility] MCH (RBC) [Entitic mass] 32.7 pg 26.0 - 34.0 pg [facility] MCHC (RBC) [Mass/Vol] 33.7 % 32.0 - 36.0 % [facility] MCV (RBC) [Entitic vol] 97.2 fL 80.0 - 98.0 fL [facility] Platelet mean volume (Bld) [Entitic vol] 9.0 fL 7.4 - 12.4 fL [facility] Platelets (Bld) [#/Vol] 78 10*3/uL Low 140 - 440 10*3/uL [facility] Comment on above: This result was prev iously suppressed from the chart. RBC (Bld) [#/Vol] 2.20 10*6/uL Low 3.8 - 5.20 10*6/uL [facility] WBC (Bld) [#/Vol] 7.1 10*3/uL 3.6 - 10.7 10*3/uL [facility] Calcium.ionized [Moles/Vol]o n 01-01-2023 Calcium.ionized (Bld) [Moles/Vol] 4.80 mg/dL 4.30 - 5.20 mg/dL [facility] Interpretation and review of laboratory results Normal [facility] PH, IONIZED CALCIUM 7.46 7.31 - 7.46 [facility] Consulton 01-01-2023 Consult ---- -------- Attestation signed [...] Alvarado : 1950 AGE: 72 y.o. [facility] A Admission Date: 01/01/2023 Visit Date: 01/01/2023 Reason for Endocrine Consult: post op heart Provider/Team Requesting Consult: cts PCP: MAYDA GARCIA Outpt Mail List Processor: No ASSESSMENT: Cad s/p Cabgx4 Dm2 with hyperglycemia without retirement insulin Stress hyperglycemia Chf Hld/htn PLAN: Continue [...] times dana (more content not included)... Normal [facility] Consult ---- -------- Attestation signed by Carlos Chavarria DO at 01/01/2023 2:48 PM I have personally performed a [id number] diagnostic evaluation on this patient on date of service 01/01/23 . History, labs, imaging studies, and electronic medical record have been reviewed by me. This note documented by the []laundry housekeeper [x]SONYA reflects my history, exam, and medical [...] leak in CTs No Pacer wires -------- [facility] Medical Group: Critical Care Consultation Note Date: 01/01/23 PATIENT NAME: Lacy Alvarado : 1950 (72 y.o.) Reason for Consult: Critical Care & Vent Management HPI: Lacy Alvarado is a 72 y.o. female was referred to us by Dr. Bhanu Milian. Patient was admitted on 12/18/22 to [facility] with CP history of CHF, CAD, [...] 29 Devices (more content not included)... Normal [facility] FibrinogenOrdered By: Stephania dunlap on 01-01-2023 Fibrinogen Coag (PPP) [Mass/Vol] 149 mg/dL Low 200 - 400 mg/dL [facility] Fibrinogen Coag (PPP) [Mass/ Vol]Ordered By: Stephania Cummings on 01-01-2023 Interpretation and review of laboratory results Abnormal [facility] Hemoglobin (Bld) [Mass/Vol]O rdered By: Lety Decker on 01-01-2023 Hematocrit (Bld) [Volume fraction] 26.8 % Low 35.0 - 47.0 % [facility] Interpretation and review of laboratory results Abnormal [facility] Hemoglobin and hematocrit, b loodOrdered By: Lety Decker on 01-01-2023 Hemoglobin (Bld) [Mass/Vol] 9.1 g/dL Low 11.7 - 16.0 g/dL [facility] Magnesiumon 01-01-2023 Magnesium [Mass/Vol] 3.4 mg/dL High 1.6 - 2 .3 mg/dL [facility] No Panel Informationon 01-01 Blood Expiration Date [id number] S [facility] Crossmatch interpretation COMP [facility] Dispense Status Transfused [facility] mymission2 Product Blood Type 5100 [facility] mymission2 PRODUCT CODE [id number] [facility] Unit ABO O [facility] RH Positive [facility] Unit Volume 300 mL [facility] Interpretation and review of laboratory results Abnormal [facility] POCT glucose meteron 023 Glucose [Mass/Vol] 141 mg/dL High 70 - 100 mg/dL [facility] Interpretation and review of laboratory results Abnormal [facility] Performed by: [facility] [employer] [facility], [address] [place] [address] CLIA ID: [id number] [facility] Glucose [Mass/Vol] 148 mg/dL High 70 - 100 mg/dL [facility] Interpretation and review of laboratory results Abnormal [facility] Performed by: [facility], [address] [place] [address] CLIA ID: [id number] [facility] Glucose [Mass/Vol] 138 mg/dL High 70 - 100 mg/dL [facility] Interpretation and review of laboratory results Abnormal [facility] Performed by: [facility], [address] [place] [address] CLIA ID: [id number] [facility] Glucose [Mass/Vol] 121 mg/dL High 70 - 100 mg/dL [facility] Interpretation and review of laboratory results Abnormal [facility] Performed by: [facility], [address] [place] [address] 38426 CLIA ID: [id number] [facility] Glucose [Mass/Vol] 142 mg/dL High 70 - 100 mg/dL [facility] Interpretation and review of laboratory results Abnormal [facility] Performed by: [facility], [address] [place] [address] 35967 CLIA ID: [id number] [facility] Glucose [Mass/Vol] 133 mg/dL High 70 - 100 mg/dL [facility] Interpretation and review of laboratory results Abnormal [facility] Performed by: [facility], [address] [place] [address]17 CLIA ID: [id number] [facility] Glucose [Mass/Vol] 152 mg/dL High 70 - 100 mg/dL [facility] Interpretation and review of laboratory results Abnormal [facility] Performed by: [facility], [address] [place] [address]60 CLIA ID: [id number] [facility] Glucose [Mass/Vol] 170 mg/dL High 70 - 100 mg/dL [facility] Interpretation and review of laboratory results Abnormal [facility] Performed by: [facility], [address] [place] [address]27 CLIA ID: [id number] [facility] Glucose [Mass/Vol] 120 mg/dL High 70 - 100 mg/dL [facility] Interpretation and review of laboratory results Abnormal [facility] Performed by: [facility], [address] [place] [address]50 CLIA ID: [id number] [facility] Glucose [Mass/Vol] 84 mg/dL 70 - 100 mg/dL [facility] Interpretation and review of laboratory results Normal [facility] Performed by: [facility], [address] [place] [address] CLIA ID: [id number] [facility] Glucose [Mass/Vol] 82 mg/dL 70 - 100 mg/dL [facility] Interpretation and review of laboratory results Normal [facility] Performed by: [facility], [address] [place] [address] CLIA ID: [id number] [facility] Glucose [Mass/Vol] 101 mg/dL High 70 - 100 mg/dL [facility] Interpretation and review of laboratory results Abnormal [facility] Performed by: [facility], [address] [place] [address]69 CLIA ID: [id number] [facility] Glucose [Mass/Vol] 125 mg/dL High 70 - 100 mg/dL [facility] Interpretation and review of laboratory results Abnormal [facility] Performed by: [facility], [address] [place] [address]885 CLIA ID: [id number] [facility] PROTIME/INR & PTTon 01-02-20 aPTT Coag (PPP) [Time] 24.2 s 20.0 - 30.5 s [facility] INR Coag (PPP) [Relative time] 1.3 {INR} High 0.9 - 1.1 [facility] Comment on above: Recommended Anticoag ulant Therapy: [...] Abnormal [facility] PT Coag (Bld) [Time] 14.0 s High 9.0 - 12.0 s [facility] Phosphate [Moles/Vol]on 12-04 Interpretation and review of laboratory results Normal [facility] Phosphate [Mass/Vol] 3.7 mg/dL 2.5 - 4 .5 mg/dL [facility] Prepare RBC: 2 Unitson 01-01 Unit Number [id number] [facility] Unit Number [id number] [facility] US Heart Transesophagealon 0 01-01-2023 Left Ventricle: [...] Echo Additional Conclusions No significant valvular abnormalities[facility] CHEST 1 VIEWon 01-01-2023 XR CHEST [...] Electronically Signed Date/Time: 01/01/2023 1:55 PM EDT [facility] XR Chest Single viewon 01-01 1. Status post thora cic surgery (CABG). 2. Line and tube placements as described. 3. Pulmonary vascular congestion without evidence of other acute cardiopulmonary process. Report Dictated on Electronically Signed By: Gómez Calvert MD Electronically Signed Date/Time: 01/01/2023 1:55 PM EDT [facility] Patient Name: LACY SAVAGE [...] heart failure, infiltrate or pneumothorax is seen. [facility] Gómez Calvert MD - 01/01/2023 Patient [...] Electronically Signed Date/Time: 01/01/2023 1:55 PM EDT [facility] Radiology Study observation (narrative) [facility] mymission2 XR Chest Single viewOrdered By: Gómez Calvert on 01-01-2023 Raiing Work Phone: ECG 12-LEADon 12-30-2022 ECG 12-LEAD IMPRESSION: Sinus rhythm Probable left atrial enlargement Electronically Signed On 12-30-2022 8:43:39 EDT by Chris Kenny [facility] mymission2 System [facility] XR CHEST 2 VIEWSon 3 XR [...] Electronically Signed Date/Time: 12/30/2022 11:52 AM EDT [facility] PREPROCINSon 12-29-2022 PREPROCINS Medication List Accurate as [...] have specific questions, please call your surgeon. CIVIL ENGINEERING SPECIALIST ENTER BUILDING AT THE MAIN ENTRANCE. TAKE THE H ELEVATOR TO THE FIRST FLOOR, TURN LEFT OFF THE ELEVATOR AND GO TO THE SAME DAY SURGERY REGISTRATION DESK TO CHECK IN [facility] 36on 12-26-2022 36 Pre op teaching done with patient. Instructed to hold NSAIDS except Aspirin 7 days prior to surgery, hold Plavix 7 days prior to surgery, and not to take any medications day of surgery. Pharmacy confirmed. All questions answered. [place] [address]874on 12-24-2022 36 Called spoke with patient, all questions answered [facility] 36 Surg proc orders michael patience, medications e-scribed - talked to patient, answered all questions. [facility] 36on 12-23-2022 36 Patient is scheduled for CABG on 01/01. Patient lives on the third floor and asking if she is able to climb all those stairs right after surgery? Please advise [phone] [facility] Office Visiton 12-23-2022 Follow-up visit [id number] Villagomez 1950 F Date Provider Department Center 12/23/2022 [id number] ROSE SH A[facility] CT None No family history on file Level of Service:81770 [place] OFFICE/OUTPATIENT NEW HIGH [facility] 60-74 MINUTES Reason for Visit and Comments: New Patient [542] [facility] Progress Noteon 12-23-2022 Progress Note [facility] CARDIOVASCULAR & THORACIC SURGERY [address] [facility] [address] Dept: [phone] Dept Loc: [phone] Visit type: New Reason for Visit: Multivessel [...] Milian. Patient was admitted on 12/18/22 to [facility] with CP. Per notes, patient has [...] CT Abdomen (more content not included)... Normal [facility] Glucose Glucometer (BldC) [M ass/Vol]Ordered By: Edwin Kaplan on 12-19-2022 Glucose [Mass/Vol] 101 mg/dL 74-106 [facility] Comment on above: MANAGEMENT OF PATIEN T CARE PER NURSING PROTOCOL Absolute lymphocyte countOrd ered By: Turner Armendariz on 12-18-2022 Lymphocytes Auto (Unsp spec) [#/Vol] 2.22 10*3/uL 0.83-4.51 [facility] Basophil percentageOrdered B y: Turner Armendariz on 12-18-2022 Basophil percentage 144 mg/dL 74-106 [facility] Basophil percentage 141 mmol/L 136-145 [facility] Basophil percentage 4.0 mmol/L 3.5-5.1 [facility] Basophil percentage 108 mmol/L 98-107 [facility] Basophils (Bld) [#/Vol] 4.9 10*3/uL 4.4-11.0 [facility] Basophils (Bld) [#/Vol] 2.2 10*3/uL 2.0-7.7 [facility] Basophils/100 WBC (Bld) 0.4 % 0-1 [facility] Basophils/100 WBC (Bld) 43.9 % 47-70 [facility] Basophils/100 WBC (Bld) 2.4 % 0-5 [facility] Chloride [Moles/Vol] 108 mmol/L 98-107 [facility] Eosinophils/100 WBC (Bld) 2.4 % 0-5 [facility] Glucose [Mass/Vol] 144 mg/dL 74-106 [facility] Comment on above: Fasting Glucose resu lt greater than or equal to 126 mg/dL suggests DIABETES MELLITUS per A.D.A. criteria. Neutrophils (Bld) [#/Vol] 2.2 10*3/uL 2.0-7.7 [facility] Neutrophils/100 WBC (Bld) 43.9 % 47-70 [facility] Potassium [Moles/Vol] 4.0 mmol/L 3.5-5.1 [facility] Sodium [Moles/Vol] 141 mmol/L 136-145 [facility] WBC (Bld) [#/Vol] 4.9 10*3/uL 4.4-11.0 [facility] Blood erythrocytes count (nu mber/volume)Ordered By: Turner Armendariz on 12-18-2022 RBC (Bld) [#/Vol] 3.32 10*6/uL 4.2-5.4 [facility] Blood hemoglobin measurement (mass/volume)Ordered By: Turner Armendariz on 12-18-2022 Hemoglobin (Bld) [Mass/Vol] 10.8 g/dL 12.0-15.0 [facility] Blood lymphocytes/100 leukoc ytesOrdered By: Turner Armendariz on 12-18-2022 Lymphocytes/100 WBC (Bld) 45.0 % 19-41 [facility] Blood monocytes/100 leukocyt esOrdered By: Turner Armendariz on 12-18-2022 Monocytes/100 WBC (Bld) 8.1 % 0-10 [facility] Blood platelet mean volumeOr dered By: Turner Armendariz on 12-18-2022 Platelet mean volume (Bld) [Entitic vol] 10.7 fL 6.2-12.0 [facility] Determination of erythrocyte mean corpuscular volume (MCV)Ordered By: Turner Armendariz on 12-18-2022 MCV (RBC) [Entitic vol] 99.1 fL 81-99 [facility] Hematocrit Auto (Bld) [Volum e fraction]Ordered By: Turner Armendariz on 12-18-2022 Hematocrit (Bld) [Volume fraction] 32.9 % 37-47 [facility] INR in Blood by Coagulation assayOrdered By: Jossue Boyd on 12-18-2022 INR Coag (Bld) [Relative time] 1.0 {INR} [facility] - Chemistry and C hemistry - challengeOrdered By: Turner Armendariz on 12-18-2022 CO2 [Moles/Vol] 29.0 mmol/L 21.0-32.0 [facility] Urea nitrogen/Creatinine [Mass ratio] 27.6 mg/mg 10-20 [facility] - CoagulationOrde red By: Jossue Boyd on 12-18-2022 aPTT Coag (Bld) [Time] 27.4 s 24.1-36.2 [facility] PT Coag (PPP) [Time] 12.8 s 11.7-14.9 [facility] - Hematology and Cell countsOrdered By: Turner Armendariz on 12-18-2022 Erythrocyte distribution width (RBC) [Entitic vol] 50.8 fL 35.1-43.9 [facility] Erythrocyte distribution width (RBC) [Ratio] 13.9 % 11.6-14.6 [facility] Immature granulocytes/100 WBC (Bld) 0.200 % 0.0-0.9 [facility] Comment on above: IG% - Immature Granu locytes (promyelocytes, myelocytes and metamyelocytes) > 1% indicates that a LEFT SHIFT is Present. MCH (RBC) [Entitic mass] 32.5 pg 27.0-32.0 [facility] Nucleated RBC/100 WBC (Bld) [Ratio] 0 % 0-5 [facility] MCHC Auto (RBC) [Mass/Vol]Or dered By: Turner Armendariz on 12-18-2022 MCHC (RBC) [Mass/Vol] 32.8 g/dL 32-36 [facility] No Panel InformationOrdered By: Edwin Kaplan on 12-18-2022 Troponin I High Sensitivity 5 pg/mL 3.0-54.0 [facility] Comment on above: Please Note: New Gina t Units and Gender Specific Reference Ranges. For more information see Policy Stat Procedure [place] High Sensitivity Troponin (TNIH) and attachments. 5 pg/mL 3.0-54.0 [facility] No Panel InformationOrdered By: Turner Armendariz on 12-18-2022 Troponin I High Sensitivity 5 pg/mL 3.0-54.0 [facility] Comment on above: Please Note: New Gina t Units and Gender Specific Reference Ranges. For more information see Policy Stat Procedure [place] High Sensitivity Troponin (TNIH) and attachments. D-Dimer Quantitative (PE/DVT) 0.31 FEU/ug/m 0.27-0.49 [facility] Comment on above: NORMAL D-Dimer level (<0.50) indicates no DVT or PE. Estimated Creatinine Clearance Calc 71.34 ml/min [facility] Estimated GFR (MDRD) Amer 79 mL/min >60 [facility] Comment on above: GFR Calc Estimated GFR (MDRD) Non-Af Amer 65 mL/min >60 [facility] Comment on above: Non- GFR Calc 32.5 pg 27.0-32.0 [facility] 13.9 % 11.6-14.6 [facility] 50.8 fl 35.1-43.9 [facility] 0.200 % 0.0-0.9 [facility] 0 % 0-5 [facility] 0.31 FEU/ug/m 0.27-0.49 [facility] 65 mL/min >60 [facility] 79 mL/min >60 [facility] 71.34 ml/min [facility] 27.6 RATIO 10-20 [facility] 29.0 mmol/L 21.0-32.0 [facility] No Panel InformationOrdered By: Jossue Boyd on 12-18-2022 12.8 SECONDS 11.7-14.9 [facility] 27.4 Seconds 24.1-36.2 [facility] Platelets bldOrdered By: Rem us Ungur on 12-18-2022 Platelets (Bld) [#/Vol] 183 10*3/uL 150-450 [facility] Serum or plasma calcium loretta urement (mass/volume)Ordered By: Remus Ungur on 12-18-2022 Calcium [Mass/Vol] 8.5 mg/dL 8.5-10.1 [facility] Serum or plasma creatinine m easurement (mass/volume)Ordered By: Remus Ungur on 12-18-2022 Creatinine [Mass/Vol] 0.90 mg/dL 0.55-1.02 [facility] Comment on above: The validity of the calculated GFR & GFRAA in patients over 70 years has not been determined. Clinical correlation is essential. Serum or plasma urea nitroge n measurement (mass/volume)Ordered By: Turner Armendariz on 12-18-2022 Urea nitrogen [Mass/Vol] 25 mg/dL 7-18 [facility] Thin prep Papanicolaou smear with manual screeningOrdered By: Turner Armendariz on 12-18-2022 Thin prep Papanicolaou smear with manual screening 4 5-15 [facility] Laboratory - Hematology and Cell countson 12-11-2022 HbA1c (Bld) [Mass fraction] 6.6 % 4.2-6.3 [facility] No Panel Informationon 12-11 6.6 % 4.2-6.3 [facility] Basophil percentageOrdered B y: Dr. Garcia on 10-01-2022 Chloride [Moles/Vol] 113 mmol/L 98-107 [facility] Glucose [Mass/Vol] 114 mg/dL 74-106 [facility] Comment on above: Fasting Glucose resu lt from 100 to 125 mg/dL suggests IMPAIRED HOMEOSTASIS per A.D.A. criteria. Potassium [Moles/Vol] 3.8 mmol/L 3.5-5.1 [facility] Sodium [Moles/Vol] 144 mmol/L 136-145 [facility] - Chemistry and C hemistry - challengeOrdered By: Dr. Garcia on 10-01-2022 CO2 [Moles/Vol] 25.0 mmol/L 21.0-32.0 [facility] Urea nitrogen/Creatinine [Mass ratio] 26.3 mg/mg 10-20 [facility] No Panel InformationOrdered By: Dr. Garcia on 10-01-2022 Estimated GFR (MDRD) Amer 92 mL/min >60 [facility] Comment on above: GFR Calc Estimated GFR (MDRD) Non-Af Amer 76 mL/min >60 [facility] Comment on above: Non- GFR Calc Valproic Acid (Depakene) Level 36 ug/mL 50-100 [facility] Serum or plasma calcium loretta urement (mass/volume)Ordered By: Dr. Garcia on 10-01-2022 Calcium [Mass/Vol] 8.6 mg/dL 8.5-10.1 [facility] Serum or plasma creatinine m easurement (mass/volume)Ordered By: Dr. Garcia on 10-01-2022 Creatinine [Mass/Vol] 0.80 mg/dL 0.55-1.02 [facility] Comment on above: The validity of the calculated GFR & GFRAA in patients over 70 years has not been determined. Clinical correlation is essential. Serum or plasma urea nitroge n measurement (mass/volume)Ordered By: Dr. Garcia on 10-01-2022 Urea nitrogen [Mass/Vol] 21 mg/dL 7-18 [facility] Thin prep Papanicolaou smear with manual screeningOrdered By: Dr. Garcia on 10-01-2022 Thin prep Papanicolaou smear with manual screening 6 5-15 [facility] Whole blood hemoglobin A1c/t otal hemoglobin ratio (mass fraction)Ordered By: Dr. Garcia on 10-01-2022 HbA1c (Bld) [Mass fraction] 7.0 % 3.8-5.6 [facility] Comment on above: Normal < 5.7 % Predi abetic 5.7 - 6.4 % Diabetic >or= 6.5 % Please note range changes. Absolute lymphocyte countOrd ered By: Dr. Freeman on 08-13-2022 Lymphocytes Auto (Unsp spec) [#/Vol] 2.73 10*3/uL 0.83-4.51 [facility] Basophil percentageOrdered B y: Dr. Freeman on 08-13-2022 Basophils/100 WBC (Bld) 0.6 % 0-1 [facility] Bilirubin [Mass/Vol] 0.20 mg/dL 0.20-1.00 [facility] Comment on above: For patients on eltr ombopag therapy, use of Dimension [place] TBIL is not recommended. Chloride [Moles/Vol] 114 mmol/L 98-107 [facility] Eosinophils/100 WBC (Bld) 2.1 % 0-5 [facility] Glucose [Mass/Vol] 143 mg/dL 74-106 [facility] Comment on above: Fasting Glucose resu lt greater than or equal to 126 mg/dL suggests DIABETES MELLITUS per A.D.A. criteria. Neutrophils (Bld) [#/Vol] 2.8 10*3/uL 2.0-7.7 [facility] Neutrophils/100 WBC (Bld) 45.6 % 47-70 [facility] Potassium [Moles/Vol] 3.7 mmol/L 3.5-5.1 [facility] Protein [Mass/Vol] 7.6 g/dL 6.4-8.2 [facility] Sodium [Moles/Vol] 140 mmol/L 136-145 [facility] WBC (Bld) [#/Vol] 6.2 10*3/uL 4.4-11.0 [facility] Blood erythrocytes count (nu mber/volume)Ordered By: Dr. Freeman on 08-13-2022 RBC (Bld) [#/Vol] 4.08 10*6/uL 4.2-5.4 [facility] Blood hemoglobin measurement (mass/volume)Ordered By: Dr. Freeman on 08-13-2022 Hemoglobin (Bld) [Mass/Vol] 12.8 g/dL 12.0-15.0 [facility] Blood lymphocytes/100 leukoc ytesOrdered By: Dr. Freeman on 08-13-2022 Lymphocytes/100 WBC (Bld) 44.1 % 19-41 [facility] Blood monocytes/100 leukocyt esOrdered By: Dr. Freeman on 08-13-2022 Monocytes/100 WBC (Bld) 7.4 % 0-10 [facility] Blood platelet mean volumeOr dered By: Dr. Freeman on 08-13-2022 Platelet mean volume (Bld) [Entitic vol] 10.6 fL 6.2-12.0 [facility] Determination of erythrocyte mean corpuscular volume (MCV)Ordered By: Dr. Freeman on 08-13-2022 MCV (RBC) [Entitic vol] 99.3 fL 81-99 [facility] Hematocrit Auto (Bld) [Volum e fraction]Ordered By: Dr. Freeman on 08-13-2022 Hematocrit (Bld) [Volume fraction] 40.5 % 37-47 [facility] Laboratory - Chemistry and C hemistry - challengeOrdered By: Dr. Freeman on 08-13-2022 ALP [Catalytic activity/Vol] 103 U/L 45-117 [facility] ALT [Catalytic activity/Vol] 32 U/L 13-56 [facility] CO2 [Moles/Vol] 22.0 mmol/L 21.0-32.0 [facility] Globulin (S) [Mass/Vol] 4.0 g/dL 2.2-4.2 [facility] Urea nitrogen/Creatinine [Mass ratio] 18.8 mg/mg 10-20 [facility] Laboratory - Hematology and Cell countsOrdered By: Dr. Freeman on 08-13-2022 Erythrocyte distribution width (RBC) [Entitic vol] 49.6 fL 35.1-43.9 [facility] Erythrocyte distribution width (RBC) [Ratio] 13.5 % 11.6-14.6 [facility] Immature granulocytes/100 WBC (Bld) 0.200 % 0.0-0.9 [facility] Comment on above: IG% - Immature Granu locytes (promyelocytes, myelocytes and metamyelocytes) > 1% indicates that a LEFT SHIFT is Present. MCH (RBC) [Entitic mass] 31.4 pg 27.0-32.0 [facility] Nucleated RBC/100 WBC (Bld) [Ratio] 0 % 0-5 [facility] MCHC Auto (RBC) [Mass/Vol]Or dered By: Dr. Freeman on 08-13-2022 MCHC (RBC) [Mass/Vol] 31.6 g/dL 32-36 [facility] No Panel InformationOrdered By: Dr. Freeman on 08-13-2022 Estimated Creatinine Clearance Calc 41.58 ml/min [facility] Estimated GFR (MDRD) Amer 70 mL/min >60 [facility] Comment on above: GFR Calc Estimated GFR (MDRD) Non-Af Amer 58 mL/min >60 [facility] Comment on above: Non- GFR Calc Valproic Acid (Depakene) Level 38 ug/mL 50-100 [facility] Platelets bldOrdered By: Dr. Freeman on 08-13-2022 Platelets (Bld) [#/Vol] 207 10*3/uL 150-450 [facility] Serum or plasma albumin loretta urement (mass/volume)Ordered By: Dr. Freeman on 08-13-2022 Albumin [Mass/Vol] 3.6 g/dL 3.2-5.0 [facility] Serum or plasma albumin/glob ulin mass ratioOrdered By: Dr. Freeman on 08-13-2022 Albumin/Globulin [Mass ratio] 0.9 {ratio} 0.9-2.4 [facility] Serum or plasma calcium loretta urement (mass/volume)Ordered By: Dr. Freeman on 08-13-2022 Calcium [Mass/Vol] 8.5 mg/dL 8.5-10.1 [facility] Serum or plasma creatinine m easurement (mass/volume)Ordered By: Dr. Freeman on 08-13-2022 Creatinine [Mass/Vol] 1.01 mg/dL 0.55-1.02 [facility] Comment on above: The validity of the calculated GFR & GFRAA in patients over 70 years has not been determined. Clinical correlation is essential. Serum or plasma urea nitroge n measurement (mass/volume)Ordered By: Dr. Freeman on 08-13-2022 Urea nitrogen [Mass/Vol] 19 mg/dL 7-18 [facility] Thin prep Papanicolaou smear with manual screeningOrdered By: Dr. Freeman on 08-13-2022 Thin prep Papanicolaou smear with manual screening 28 U/L 15-37 [facility] Thin prep Papanicolaou smear with manual screening 4 5-15 [facility] Laboratory - Hematology and Cell countson 06-30-2022 HbA1c (Bld) [Mass fraction] 6.8 % 4.2-6.3 [facility] Culture, urineOrdered By: Dr Yoko Chan on 06-07-2022 Bacteria identified Cx Nom (U) Mixed Gram Pos & Gram Neg Org [facility] Absolute lymphocyte countOrd ered By: Dr. Chan on 06-06-2022 Lymphocytes Auto (Unsp spec) [#/Vol] 1.11 10*3/uL 0.83-4.51 [facility] Basophil percentageOrdered B y: Dr. Chan on 06-06-2022 Basophil percentage 0 SEEN /hpf 0-5 [facility] Basophils/100 WBC (Bld) 0.4 % 0-1 [facility] Bilirubin [Mass/Vol] 0.30 mg/dL 0.20-1.00 [facility] Comment on above: For patients on eltr ombopag therapy, use of Dimension [place] TBIL is not recommended. Chloride [Moles/Vol] 107 mmol/L 98-107 [facility] Eosinophils/100 WBC (Bld) 1.5 % 0-5 [facility] Glucose [Mass/Vol] 117 mg/dL 74-106 [facility] Comment on above: Fasting Glucose resu lt from 100 to 125 mg/dL suggests IMPAIRED HOMEOSTASIS per A.D.A. criteria. Neutrophils (Bld) [#/Vol] 4.0 10*3/uL 2.0-7.7 [facility] Neutrophils/100 WBC (Bld) 72.8 % 47-70 [facility] Potassium [Moles/Vol] 4.2 mmol/L 3.5-5.1 [facility] Protein [Mass/Vol] 7.9 g/dL 6.4-8.2 [facility] Sodium [Moles/Vol] 142 mmol/L 136-145 [facility] WBC (Bld) [#/Vol] 5.4 10*3/uL 4.4-11.0 [facility] Bilirubin Test strip Ql (U)O rdered By: Dr. Chan on 06-06-2022 Bilirubin Ql (U) Negative Negative [facility] Blood erythrocytes count (nu mber/volume)Ordered By: Dr. Chan on 06-06-2022 RBC (Bld) [#/Vol] 3.83 10*6/uL 4.2-5.4 [facility] Blood hemoglobin measurement (mass/volume)Ordered By: Dr. Chan on 06-06-2022 Hemoglobin (Bld) [Mass/Vol] 11.9 g/dL 12.0-15.0 [facility] Blood lymphocytes/100 leukoc ytesOrdered By: Dr. Chan on 06-06-2022 Lymphocytes/100 WBC (Bld) 20.4 % 19-41 [facility] Blood monocytes/100 leukocyt esOrdered By: Dr. Chan on 06-06-2022 Monocytes/100 WBC (Bld) 4.0 % 0-10 [facility] Blood platelet mean volumeOr dered By: Dr. Chan on 06-06-2022 Platelet mean volume (Bld) [Entitic vol] 10.1 fL 6.2-12.0 [facility] Determination of erythrocyte mean corpuscular volume (MCV)Ordered By: Dr. Chan on 06-06-2022 MCV (RBC) [Entitic vol] 96.6 fL 81-99 [facility] Hematocrit Auto (Bld) [Volum e fraction]Ordered By: Dr. Chan on 06-06-2022 Hematocrit (Bld) [Volume fraction] 37.0 % 37-47 [facility] Ketones Test strip Ql (U)Ord ered By: Dr. Chan on 06-06-2022 Ketones Ql (U) 15 mg/dl Negative [facility] Laboratory - Chemistry and C hemistry - challengeOrdered By: Dr. Chan on 06-06-2022 ALP [Catalytic activity/Vol] 88 U/L 45-117 [facility] ALT [Catalytic activity/Vol] 28 U/L 13-56 [facility] CO2 [Moles/Vol] 26.0 mmol/L 21.0-32.0 [facility] Globulin (S) [Mass/Vol] 4.4 g/dL 2.2-4.2 [facility] Urea nitrogen/Creatinine [Mass ratio] 29.2 mg/mg 10-20 [facility] Laboratory - Hematology and Cell countsOrdered By: Dr. Chan on 06-06-2022 Erythrocyte distribution width (RBC) [Entitic vol] 48.0 fL 35.1-43.9 [facility] Erythrocyte distribution width (RBC) [Ratio] 13.3 % 11.6-14.6 [facility] Immature granulocytes/100 WBC (Bld) 0.900 % 0.0-0.9 [facility] Comment on above: IG% - Immature Granu locytes (promyelocytes, myelocytes and metamyelocytes) > 1% indicates that a LEFT SHIFT is Present. MCH (RBC) [Entitic mass] 31.1 pg 27.0-32.0 [facility] Nucleated RBC/100 WBC (Bld) [Ratio] 0 % 0-5 [facility] MCHC Auto (RBC) [Mass/Vol]Or dered By: Dr. Chan on 06-06-2022 MCHC (RBC) [Mass/Vol] 32.2 g/dL 32-36 [facility] Mucus LM Ql (Urine sed)Order ed By: Dr. Chan on 06-06-2022 Mucus Ql (Urine sed) 0 SEEN /hpf [facility] Nitrite Test strip Ql (U)Ord ered By: Dr. Chan on 06-06-2022 Nitrite Ql (U) Negative Negative [facility] No Panel InformationOrdered By: Dr. Chan on 06-06-2022 Troponin I High Sensitivity 14 pg/mL 3.0-54.0 [facility] Comment on above: Please Note: New Gina t Units and Gender Specific Reference Ranges. For more information see Policy Stat Procedure [place] High Sensitivity Troponin (TNIH) and attachments. Estimated Creatinine Clearance Calc 39.62 ml/min [facility] Estimated GFR (MDRD) Amer 66 mL/min >60 [facility] Comment on above: GFR Calc Estimated GFR (MDRD) Non-Af Amer 55 mL/min >60 [facility] Comment on above: Non- GFR Calc Valproic Acid (Depakene) Level 62 ug/mL 50-100 [facility] Platelets bldOrdered By: Dr. Chan on 06-06-2022 Platelets (Bld) [#/Vol] 248 10*3/uL 150-450 [facility] Protein Test strip Ql (U)Ord ered By: Dr. Chan on 06-06-2022 Protein Ql (U) 15 mg/dl Negative [facility] Serum or plasma albumin loretta urement (mass/volume)Ordered By: Dr. Chan on 06-06-2022 Albumin [Mass/Vol] 3.5 g/dL 3.2-5.0 [facility] Serum or plasma albumin/glob ulin mass ratioOrdered By: Dr. Chan on 06-06-2022 Albumin/Globulin [Mass ratio] 0.8 {ratio} 0.9-2.4 [facility] Serum or plasma calcium loretta urement (mass/volume)Ordered By: Dr. Chan on 06-06-2022 Calcium [Mass/Vol] 9.1 mg/dL 8.5-10.1 [facility] Serum or plasma creatinine m easurement (mass/volume)Ordered By: Dr. Chan on 06-06-2022 Creatinine [Mass/Vol] 1.06 mg/dL 0.55-1.02 [facility] Comment on above: The validity of the calculated GFR & GFRAA in patients over 70 years has not been determined. Clinical correlation is essential. Serum or plasma urea nitroge n measurement (mass/volume)Ordered By: Dr. Chan on 06-06-2022 Urea nitrogen [Mass/Vol] 31 mg/dL 7-18 [facility] Squamous epithelial cells de tection in urine sediment by light microscopyOrdered By: Dr. Chan on 06-06-2022 Epithelial cells.squamous LM Ql (Urine sed) 0-5 SEEN /hpf 5-10 [facility] Thin prep Papanicolaou smear with manual screeningOrdered By: Dr. Chan on 06-06-2022 Thin prep Papanicolaou smear with manual screening 16 U/L 15-37 [facility] Thin prep Papanicolaou smear with manual screening 9 5-15 [facility] Urine blood detectionOrdered By: Dr. Chan on 06-06-2022 RBC Ql (U) Negative Negative [facility] RBC Ql (U) 0 SEEN /hpf 0-5 [facility] Urine clarityOrdered By: Dr. Chan on 06-06-2022 Clarity (U) Clear Clear [facility] Urine color determinationOrd ered By: Dr. Chan on 06-06-2022 Color (U) Yellow Yellow [facility] Urine glucose detectionOrder ed By: Dr. Chan on 06-06-2022 Glucose Ql (U) Normal mg/dl Normal [facility] Urine leukocyte esterase det ection by dipstickOrdered By: Dr. Chan on 06-06-2022 Leukocyte esterase Test strip Ql (U) 100 /ul Negative [facility] Urine pHOrdered By: Dr. Chan o n 06-06-2022 pH (U) 6.0 [pH] 5.0 - 8.0 [facility] Urine sediment bacteria coun t by microscopy (number/high power field)Ordered By: Dr. Chan on 06-06-2022 Bacteria LM.HPF (Urine sed) [#/Area] 0 /[HPF] None Seen [facility] Urine specific gravity measu rementOrdered By: Dr. Chan on 06-06-2022 Specific gravity (U) [Rel density] 1.020 1.002-1.030 [facility] Urobilinogen Auto test strip Ql (U)Ordered By: Dr. Chan on 06-06-2022 Urobilinogen Ql (U) Normal mg/dl Normal [facility] Laboratory - Microbiology an d Antimicrobial susceptibilityOrdered By: Dr. Garcia on 05-06-2022 SARS-CoV-2 (COVID-19) RNA GERONIMO+probe Ql (Unsp spec) Not detected Not Detect [facility] Comment on above: Normal Reference Ran ge: Not DetectedMethod:(RT-PCR) real-time reverse transcriptase PCRLuminex Skimbl Instrument*The Food and Drug Administration (FDA) has issued an Emergency Use Authorization (EAU) for the Skimbl SARS-CoV-2 Assay for the rapid detection of [...] Auto (Unsp spec) [#/Vol] 1.49 10*3/uL 0.83-4.51 [facility] Basophil percentageOrdered B y: Dr. Garcia on 03-14-2022 Basophil percentage 0 SEEN /hpf 0-5 [facility] Basophils/100 WBC (Bld) 0.3 % 0-1 [facility] Bilirubin [Mass/Vol] 0.30 mg/dL 0.20-1.00 [facility] Comment on above: For patients on eltr ombopag therapy, use of Dimension [place] TBIL is not recommended. Chloride [Moles/Vol] 108 mmol/L 98-107 [facility] Eosinophils/100 WBC (Bld) 1.5 % 0-5 [facility] Glucose [Mass/Vol] 125 mg/dL 74-106 [facility] Comment on above: Fasting Glucose resu lt from 100 to 125 mg/dL suggests IMPAIRED HOMEOSTASIS per A.D.A. criteria. Lactate [Moles/Vol] 3.2 mmol/L 0.4-2.0 [facility] Comment on above: Critical Result(s) C alled at: 18:20:28 03/14/2022 by: tommy PHILLIPS RN ED. Results read back by same. Neutrophils (Bld) [#/Vol] 4.0 10*3/uL 2.0-7.7 [facility] Neutrophils/100 WBC (Bld) 66.8 % 47-70 [facility] Potassium [Moles/Vol] 4.1 mmol/L 3.5-5.1 [facility] Protein [Mass/Vol] 7.5 g/dL 6.4-8.2 [facility] Sodium [Moles/Vol] 141 mmol/L 136-145 [facility] WBC (Bld) [#/Vol] 6.0 10*3/uL 4.4-11.0 [facility] Bilirubin Test strip Ql (U)O rdered By: Dr. Garcia on 03-14-2022 Bilirubin Ql (U) Negative Negative [facility] Blood erythrocytes count (nu mber/volume)Ordered By: Dr. Garcia on 03-14-2022 RBC (Bld) [#/Vol] 3.71 10*6/uL 4.2-5.4 [facility] Blood hemoglobin measurement (mass/volume)Ordered By: Dr. Garcia on 03-14-2022 Hemoglobin (Bld) [Mass/Vol] 11.6 g/dL 12.0-15.0 [facility] Blood lymphocytes/100 leukoc ytesOrdered By: Dr. Garcia on 03-14-2022 Lymphocytes/100 WBC (Bld) 24.8 % 19-41 [facility] Blood monocytes/100 leukocyt esOrdered By: Dr. Garcia on 03-14-2022 Monocytes/100 WBC (Bld) 6.3 % 0-10 [facility] Blood platelet mean volumeOr dered By: Dr. Garcia on 03-14-2022 Platelet mean volume (Bld) [Entitic vol] 9.9 fL 6.2-12.0 [facility] Determination of erythrocyte mean corpuscular volume (MCV)Ordered By: Dr. Garcia on 03-14-2022 MCV (RBC) [Entitic vol] 96.2 fL 81-99 [facility] Hematocrit Auto (Bld) [Volum e fraction]Ordered By: Dr. Garcia on 03-14-2022 Hematocrit (Bld) [Volume fraction] 35.7 % 37-47 [facility] Ketones Test strip Ql (U)Ord ered By: Dr. Garcia on 03-14-2022 Ketones Ql (U) 15 mg/dl Negative [facility] Laboratory - Chemistry and C hemistry - challengeOrdered By: Dr. Garcia on 03-14-2022 ALP [Catalytic activity/Vol] 84 U/L 45-117 [facility] ALT [Catalytic activity/Vol] 32 U/L 13-56 [facility] CO2 [Moles/Vol] 25.0 mmol/L 21.0-32.0 [facility] Globulin (S) [Mass/Vol] 4.2 g/dL 2.2-4.2 [facility] Urea nitrogen/Creatinine [Mass ratio] 22.6 mg/mg 10-20 [facility] Laboratory - Hematology and Cell countsOrdered By: Dr. Garcia on 03-14-2022 Erythrocyte distribution width (RBC) [Entitic vol] 47.1 fL 35.1-43.9 [facility] Erythrocyte distribution width (RBC) [Ratio] 13.2 % 11.6-14.6 [facility] Immature granulocytes/100 WBC (Bld) 0.300 % 0.0-0.9 [facility] Comment on above: IG% - Immature Granu locytes (promyelocytes, myelocytes and metamyelocytes) > 1% indicates that a LEFT SHIFT is Present. MCH (RBC) [Entitic mass] 31.3 pg 27.0-32.0 [facility] Nucleated RBC/100 WBC (Bld) [Ratio] 0 % 0-5 [facility] MCHC Auto (RBC) [Mass/Vol]Or dered By: Dr. Garcia on 03-14-2022 MCHC (RBC) [Mass/Vol] 32.5 g/dL 32-36 [facility] Mucus LM Ql (Urine sed)Order ed By: Dr. Garcia on 03-14-2022 Mucus Ql (Urine sed) 0 SEEN /hpf [facility] Nitrite Test strip Ql (U)Ord ered By: Dr. Garcia on 03-14-2022 Nitrite Ql (U) Negative Negative [facility] No Panel InformationOrdered By: Dr. Garcia on 03-14-2022 Estimated Creatinine Clearance Calc 45.15 ml/min [facility] Estimated GFR (MDRD) Amer 77 mL/min >60 [facility] Comment on above: GFR Calc Estimated GFR (MDRD) Non-Af Amer 64 mL/min >60 [facility] Comment on above: Non- GFR Calc Troponin I High Sensitivity 18 pg/mL 3.0-54.0 [facility] Comment on above: Please Note: New Gina t Units and Gender Specific Reference Ranges. For more information see Policy Stat Procedure [place] High Sensitivity Troponin (TNIH) and attachments. Valproic Acid (Depakene) Level 42 ug/mL 50-100 [facility] Platelets bldOrdered By: Dr. Garcia on 03-14-2022 Platelets (Bld) [#/Vol] 233 10*3/uL 150-450 [facility] Protein Test strip Ql (U)Ord ered By: Dr. Garcia on 03-14-2022 Protein Ql (U) 15 mg/dl Negative [facility] Serum or plasma albumin loretta urement (mass/volume)Ordered By: Dr. Garcia on 03-14-2022 Albumin [Mass/Vol] 3.3 g/dL 3.2-5.0 [facility] Serum or plasma albumin/glob ulin mass ratioOrdered By: Dr. Garcia on 03-14-2022 Albumin/Globulin [Mass ratio] 0.8 {ratio} 0.9-2.4 [facility] Serum or plasma calcium loretta urement (mass/volume)Ordered By: Dr. Garcia on 03-14-2022 Calcium [Mass/Vol] 9.2 mg/dL 8.5-10.1 [facility] Serum or plasma creatinine m easurement (mass/volume)Ordered By: Dr. Garcia on 03-14-2022 Creatinine [Mass/Vol] 0.93 mg/dL 0.55-1.02 [facility] Comment on above: The validity of the calculated GFR & GFRAA in patients over 70 years has not been determined. Clinical correlation is essential. Serum or plasma urea nitroge n measurement (mass/volume)Ordered By: Dr. Garcia on 03-14-2022 Urea nitrogen [Mass/Vol] 21 mg/dL 7-18 [facility] Squamous epithelial cells de tection in urine sediment by light microscopyOrdered By: Dr. Garcia on 03-14-2022 Epithelial cells.squamous LM Ql (Urine sed) 0-5 SEEN /hpf 5-10 [facility] Thin prep Papanicolaou smear with manual screeningOrdered By: Dr. Garcia on 03-14-2022 Thin prep Papanicolaou smear with manual screening 21 U/L 15-37 [facility] Thin prep Papanicolaou smear with manual screening 8 5-15 [facility] Urine blood detectionOrdered By: Dr. Garcia on 03-14-2022 RBC Ql (U) Negative Negative [facility] RBC Ql (U) 0 SEEN /hpf 0-5 [facility] Urine clarityOrdered By: Dr. Garcia on 03-14-2022 Clarity (U) Clear Clear [facility] Urine color determinationOrd ered By: Dr. Garcia on 03-14-2022 Color (U) Yellow Yellow [facility] Urine glucose detectionOrder ed By: Dr. Garcia on 03-14-2022 Glucose Ql (U) Normal mg/dl Normal [facility] Urine leukocyte esterase det ection by dipstickOrdered By: Dr. Garcia on 03-14-2022 Leukocyte esterase Test strip Ql (U) Negative Negative [facility] Urine pHOrdered By: Dr. Jonathan ryan on 03-14-2022 pH (U) 7.0 [pH] 5.0 - 8.0 [facility] Urine sediment bacteria coun t by microscopy (number/high power field)Ordered By: Dr. Garcia on 03-14-2022 Bacteria LM.HPF (Urine sed) [#/Area] 0 /[HPF] None Seen [facility] Urine specific gravity measu rementOrdered By: Dr. Garcia on 03-14-2022 Specific gravity (U) [Rel density] 1.015 1.002-1.030 [facility] Urobilinogen Auto test strip Ql (U)Ordered By: Dr. Garcia on 03-14-2022 Urobilinogen Ql (U) Normal mg/dl Normal [facility] Absolute lymphocyte counton 01-10-2022 Lymphocytes Auto (Unsp spec) [#/Vol] 1.45 10*3/uL 0.83-4.51 [facility] Work Phone: Basophil percentageon 2021 Basophils/100 WBC (Bld) 0.3 % 0-1 [facility] Work Phone: Bilirubin [Mass/Vol] 0.50 mg/dL 0.20-1.00 [facility] Work Phone: Comment on above: For patients on eltr ombopag therapy, use of Dimension [place] TBIL is not recommended. Chloride [Moles/Vol] 106 mmol/L 98-107 [facility] Work Phone: Cholesterol [Mass/Vol] 195 mg/dL <200 [facility] Work Phone: Comment on above: <200 mg/dL Desirable 200-240 mg/dL Borderline >240 mg/dL High Risk Eosinophils/100 WBC (Bld) 2.9 % 0-5 [facility] Work Phone: Glucose [Mass/Vol] 124 mg/dL 74-106 [facility] Work Phone: Comment on above: Fasting Glucose resu lt from 100 to 125 mg/dL suggests IMPAIRED HOMEOSTASIS per A.D.A. criteria. Neutrophils (Bld) [#/Vol] 2.0 10*3/uL 2.0-7.7 [facility] Work Phone: Neutrophils/100 WBC (Bld) 52.1 % 47-70 [facility] Work Phone: Potassium [Moles/Vol] 4.1 mmol/L 3.5-5.1 [facility] Work Phone: Protein [Mass/Vol] 7.8 g/dL 6.4-8.2 [facility] Work Phone: Sodium [Moles/Vol] 141 mmol/L 136-145 [facility] Work Phone: Triglyceride [Mass/Vol] 92 mg/dL <199 [facility] Work Phone: Comment on above: The drugs N-Acetylcy steine and Metamizole may falsely depress this assay.Serum Triglycerides Reference Interval Normal <150 mg/dL Borderline high 150 - 199 mg/dL High 200 - 499 mg/dL Very High > or = 500 mg/dL WBC (Bld) [#/Vol] 3.8 10*3/uL 4.4-11.0 [facility]: Blood erythrocytes count (nu mber/volume)on 01-10-2022 RBC (Bld) [#/Vol] 3.90 10*6/uL 4.2-5.4 [facility] Work [facility]: Blood hemoglobin measurement (mass/volume)on 01-10-2022 Hemoglobin (Bld) [Mass/Vol] 12.5 g/dL 12.0-15.0 [facility] Work Phone: Blood lymphocytes/100 leukoc yteson 01-10-2022 Lymphocytes/100 WBC (Bld) 37.9 % 19-41 [facility] Work Phone: Blood monocytes/100 leukocyt eson 01-10-2022 Monocytes/100 WBC (Bld) 6.5 % 0-10 [facility] Work Phone: Blood platelet mean volumeon 01-10-2022 Platelet mean volume (Bld) [Entitic vol] 11.1 fL 6.2-12.0 [facility] Work Phone: Determination of erythrocyte mean corpuscular volume (MCV)on 01-10-2022 MCV (RBC) [Entitic vol] 96.4 fL 81-99 [facility] Work Phone: Hematocrit Auto (Bld) [Volum e fraction]on 01-10-2022 Hematocrit (Bld) [Volume fraction] 37.6 % 37-47 [facility] Work Phone: Laboratory - Chemistry and C hemistry - challengeon 01-10-2022 ALP [Catalytic activity/Vol] 87 U/L 45-117 [facility] Work Phone: ALT [Catalytic activity/Vol] 28 U/L 13-56 [facility] Work Phone: CO2 [Moles/Vol] 29.0 mmol/L 21.0-32.0 [facility] Work Phone: Globulin (S) [Mass/Vol] 4.2 g/dL 2.2-4.2 [facility] Work Phone: Urea nitrogen/Creatinine [Mass ratio] 22.6 mg/mg 10-20 [facility] Work Phone: Laboratory - Hematology and Cell countson 01-10-2022 Erythrocyte distribution width (RBC) [Entitic vol] 48.9 fL 35.1-43.9 [facility] Work Phone: Erythrocyte distribution width (RBC) [Ratio] 13.7 % 11.6-14.6 [facility] Work Phone: Immature granulocytes/100 WBC (Bld) 0.300 % 0.0-0.9 [facility] Work Phone: Comment on above: IG% - Immature Granu locytes (promyelocytes, myelocytes and metamyelocytes) > 1% indicates that a LEFT SHIFT is Present. MCH (RBC) [Entitic mass] 32.1 pg 27.0-32.0 [facility] Work Phone: Nucleated RBC/100 WBC (Bld) [Ratio] 0 % 0-5 [facility] Work Phone: MCHC Auto (RBC) [Mass/Vol]on 01-10-2022 MCHC (RBC) [Mass/Vol] 33.2 g/dL 32-36 [facility] Work Phone: No Panel Informationon 01-10 Estimated GFR (MDRD) Amer 77 mL/min >60 [facility] Work Phone: [phone] Comment on above: GFR Calc Estimated GFR (MDRD) Non-Af Amer 64 mL/min >60 [facility] Work Phone: Comment on above: Non- GFR Calc Urine Microalbumin/Creatinine Ratio 7.3 mg/g CRE <30 [facility] Work Phone: Platelets bldon 01-10-2022 Platelets (Bld) [#/Vol] 210 10*3/uL 150-450 [facility] Work Phone: Serum or plasma albumin loretta urement (mass/volume)on 01-10-2022 Albumin [Mass/Vol] 3.6 g/dL 3.2-5.0 [facility] Work Phone: Serum or plasma albumin/glob ulin mass ratioon 01-10-2022 Albumin/Globulin [Mass ratio] 0.9 {ratio} 0.9-2.4 [facility] Work Phone: Serum or plasma calcium loretta urement (mass/volume)on 01-10-2022 Calcium [Mass/Vol] 9.6 mg/dL 8.5-10.1 [facility] Work Phone: Serum or plasma cholesterol in HDL measurement (mass/volume)on 01-10-2022 Cholesterol in HDL [Mass/Vol] 53 mg/dL >40 [facility] Work Phone: Comment on above: The drugs N-Acetylcy steine and Metamizole may falsely depress this assay. Reference Range HDL <40 mg/dL Low HDL Cholesterol HDL >or= 60 mg/dL High HDL Cholesterol Serum or plasma cholesterol in VLDL measurement (mass/volume)on 01-10-2022 Cholesterol in VLDL [Mass/Vol] 18 mg/dL 5-40 [facility] Work Phone: Serum or plasma creatinine m easurement (mass/volume)on 01-10-2022 Creatinine [Mass/Vol] 0.93 mg/dL 0.55-1.02 [facility] Work Phone: Comment on above: The validity of the calculated GFR & GFRAA in patients over 70 years has not been determined. Clinical correlation is essential. Serum or plasma low density lipoprotein (LDL) cholesterol measurement (mass/volume)on 01-10-2022 Cholesterol in LDL [Mass/Vol] 124 mg/dL 0-130 [facility] Work Phone: Serum or plasma urea nitroge n measurement (mass/volume)on 01-10-2022 Urea nitrogen [Mass/Vol] 21 mg/dL 7-18 [facility] Work Phone: Thin prep Papanicolaou smear with manual screeningon 01-10-2022 Thin prep Papanicolaou smear with manual screening 17 U/L 15-37 [facility] Work Phone: Thin prep Papanicolaou smear with manual screening 6 5-15 [facility] Work Phone: Thin prep Papanicolaou smear with manual screening 22.4 mg/L NO RANGE EST. [facility] Work Phone: Urine creatinine measurement (mass/volume)on 01-10-2022 Creatinine (U) [Mass/Vol] 308.00 mg/dL NO RANGE EST. [facility] Work Phone: Whole blood hemoglobin A1c/t otal hemoglobin ratio (mass fraction)on 01-10-2022 HbA1c (Bld) [Mass fraction] 7.3 % 3.8-5.6 [facility] Work Phone: Comment on above: Normal < 5.7 % Predi abetic 5.7 - 6.4 % Diabetic >or= 6.5 % Please note range changes. Absolute lymphocyte counton 01-03-2022 Lymphocytes Auto (Unsp spec) [#/Vol] 2.28 10*3/uL 0.83-4.51 [facility] Work Phone: Basophil percentageon 2021 Basophils/100 WBC (Bld) 0.6 % 0-1 [facility] Work Phone: Bilirubin [Mass/Vol] 0.20 mg/dL 0.20-1.00 [facility] Work Phone: Comment on above: For patients on eltr ombopag therapy, use of Dimension [place] TBIL is not recommended. Chloride [Moles/Vol] 110 mmol/L 98-107 [facility] Work Phone: Eosinophils/100 WBC (Bld) 3.1 % 0-5 [facility] Work Phone: Glucose [Mass/Vol] 154 mg/dL 74-106 [facility] Work Phone: Comment on above: Fasting Glucose resu lt greater than or equal to 126 mg/dL suggests DIABETES MELLITUS per A.D.A. criteria. Neutrophils (Bld) [#/Vol] 2.2 10*3/uL 2.0-7.7 [facility] Work Phone: Neutrophils/100 WBC (Bld) 44.8 % 47-70 [facility] Work Phone: Potassium [Moles/Vol] 3.8 mmol/L 3.5-5.1 [facility] Work Phone: Protein [Mass/Vol] 6.0 g/dL 6.4-8.2 [facility] Work Phone: Sodium [Moles/Vol] 141 mmol/L 136-145 [facility] Work Phone: [phone] WBC (Bld) [#/Vol] 4.9 10*3/uL 4.4-11.0 [facility] Work Phone: Blood erythrocytes count (nu mber/volume)on 01-03-2022 RBC (Bld) [#/Vol] 3.20 10*6/uL 4.2-5.4 [facility] Work Phone: Blood hemoglobin measurement (mass/volume)on 01-03-2022 Hemoglobin (Bld) [Mass/Vol] 10.1 g/dL 12.0-15.0 [facility] Work Phone: [phone] Blood lymphocytes/100 leukoc yteson 01-03-2022 Lymphocytes/100 WBC (Bld) 46.4 % 19-41 [facility] Work Phone: Blood monocytes/100 leukocyt eson 01-03-2022 Monocytes/100 WBC (Bld) 4.9 % 0-10 [facility] Work Phone: Blood platelet mean volumeon 01-03-2022 Platelet mean volume (Bld) [Entitic vol] 10.8 fL 6.2-12.0 [facility] Work Phone: Determination of erythrocyte mean corpuscular volume (MCV)on 01-03-2022 MCV (RBC) [Entitic vol] 97.2 fL 81-99 [facility] Work Phone: Glucose Glucometer (BldC) [M ass/Vol]on 01-03-2022 Glucose [Mass/Vol] 107 mg/dL 74-106 [facility] Work Phone: Comment on above: MANAGEMENT OF PATIEN T CARE PER NURSING PROTOCOL Hematocrit Auto (Bld) [Volum e fraction]on 01-03-2022 Hematocrit (Bld) [Volume fraction] 31.1 % 37-47 [facility] Work Phone: Laboratory - Chemistry and C hemistry - challengeon 01-03-2022 ALP [Catalytic activity/Vol] 83 U/L 45-117 [facility] Work Phone: ALT [Catalytic activity/Vol] 23 U/L 13-56 [facility] Work Phone: CO2 [Moles/Vol] 26.0 mmol/L 21.0-32.0 [facility] Work Phone: Globulin (S) [Mass/Vol] 3.4 g/dL 2.2-4.2 [facility] Work Phone: Urea nitrogen/Creatinine [Mass ratio] 22.9 mg/mg 10-20 [facility] Work Phone: Laboratory - Hematology and Cell countson 01-03-2022 Erythrocyte distribution width (RBC) [Entitic vol] 48.3 fL 35.1-43.9 [facility] Work Phone: Erythrocyte distribution width (RBC) [Ratio] 13.4 % 11.6-14.6 [facility] Work Phone: Immature granulocytes/100 WBC (Bld) 0.200 % 0.0-0.9 [facility] Work Phone: Comment on above: IG% - Immature Granu locytes (promyelocytes, myelocytes and metamyelocytes) > 1% indicates that a LEFT SHIFT is Present. MCH (RBC) [Entitic mass] 31.6 pg 27.0-32.0 [facility] Work Phone: Nucleated RBC/100 WBC (Bld) [Ratio] 0 % 0-5 [facility] Work Phone: MCHC Auto (RBC) [Mass/Vol]on 01-03-2022 MCHC (RBC) [Mass/Vol] 32.5 g/dL 32-36 [facility] Work Phone: No Panel Informationon 01-03 Estimated Creatinine Clearance Calc 50.59 ml/min [facility] Work Phone: Estimated GFR (MDRD) Amer 88 mL/min >60 [facility] Work Phone: Comment on above: GFR Calc Estimated GFR (MDRD) Non-Af Amer 73 mL/min >60 [facility] Work Phone: Comment on above: Non- GFR Calc Platelets bldon 01-03-2022 Platelets (Bld) [#/Vol] 181 10*3/uL 150-450 [facility] Work Phone: Serum or plasma albumin loretta urement (mass/volume)on 01-03-2022 Albumin [Mass/Vol] 2.6 g/dL 3.2-5.0 [facility] Work Phone: Serum or plasma albumin/glob ulin mass ratioon 01-03-2022 Albumin/Globulin [Mass ratio] 0.8 {ratio} 0.9-2.4 [facility] Work Phone: Serum or plasma calcium loretta urement (mass/volume)on 01-03-2022 Calcium [Mass/Vol] 8.0 mg/dL 8.5-10.1 [facility] Work Phone: Serum or plasma creatinine m easurement (mass/volume)on 01-03-2022 Creatinine [Mass/Vol] 0.83 mg/dL 0.55-1.02 [facility] Work Phone: Comment on above: The validity of the calculated GFR & GFRAA in patients over 70 years has not been determined. Clinical correlation is essential. Serum or plasma urea nitroge n measurement (mass/volume)on 01-03-2022 Urea nitrogen [Mass/Vol] 19 mg/dL 7-18 [facility] Work Phone: Thin prep Papanicolaou smear with manual screeningon 01-03-2022 Thin prep Papanicolaou smear with manual screening 15 U/L 15-37 [facility] Work Phone: Thin prep Papanicolaou smear with manual screening 5 5-15 [facility] Work Phone: No Panel Informationon 01-02 Troponin I High Sensitivity 5 pg/mL 3.0-54.0 [facility] Work Phone: Comment on above: Please Note: New Gina t Units and Gender Specific Reference Ranges. For more information see Policy Stat Procedure [place] High Sensitivity Troponin (TNIH) and attachments. D-Dimer Quantitative (PE/DVT) 0.57 FEU/ug/m 0.27-0.49 [facility] Work Phone: Comment on above: D-Dimer ELEVATED (>0 .49): Additional studies and clinicalassessments are indicated to conclude diagnosis of:Deep Vein Thrombosis (DVT) or Pulmonary Embolism (PE)CRITICAL VALUE VERIFIED. CALLED TO NIDIA COLLINS (ER)01/02/22 1599 Mynor James.RESULTS READ BACK BY SAME. Basophil percentageon 2021 Basophil percentage 0-5 SEEN /hpf 0-5 [facility] Work Phone: Bilirubin Test strip Ql (U)o n 12-17-2021 Bilirubin Ql (U) Negative Negative [facility] Work Phone: Ketones Test strip Ql (U)on 12-17-2021 Ketones Ql (U) Negative Negative [facility] Work Phone: Mucus LM Ql (Urine sed)on Mucus Ql (Urine sed) RARE /hpf [facility] Work Phone: Nitrite Test strip Ql (U)on 12-17-2021 Nitrite Ql (U) Negative Negative [facility] Work Phone: Protein Test strip Ql (U)on 12-17-2021 Protein Ql (U) Negative Negative [facility] Work Phone: Squamous epithelial cells de tection in urine sediment by light microscopyon 12-17-2021 Epithelial cells.squamous LM Ql (Urine sed) 0-5 SEEN /hpf 5-10 [facility] Work Phone: Urine blood detectionon 12-02 RBC Ql (U) Negative Negative [facility] Work Phone: RBC Ql (U) 0 SEEN /hpf 0-5 [facility] Work Phone: Urine clarityon 12-17-2021 Clarity (U) Clear Clear [facility] Work Phone: Urine color determinationon 12-17-2021 Color (U) Yellow Yellow [facility] Work Phone: Urine glucose detectionon Glucose Ql (U) Normal mg/dl Normal [facility] Work Phone: Urine leukocyte esterase det ection by dipstickon 12-17-2021 Leukocyte esterase Test strip Ql (U) 100 /ul Negative [facility] Work Phone: Urine pHon 12-17-2021 pH (U) 8.0 [pH] 5.0 - 8.0 [facility] Work Phone: Urine sediment bacteria coun t by microscopy (number/high power field)on 12-17-2021 Bacteria LM.HPF (Urine sed) [#/Area] 1 /[HPF] None Seen [facility] Work Phone: Urine specific gravity measu rementon 12-17-2021 Specific gravity (U) [Rel density] 1.015 1.002-1.030 [facility] Work Phone: Urobilinogen Auto test strip Ql (U)on 12-17-2021 Urobilinogen Ql (U) 1 mg/dl Normal [facility] Work Phone: Laboratory - Hematology and Cell countson 11-06-2021 HbA1c (Bld) [Mass fraction] 7.2 % 4.2-6.3 [facility] Work Phone: Absolute lymphocyte counton 10-25-2021 Lymphocytes Auto (Unsp spec) [#/Vol] 2.55 10*3/uL 0.83-4.51 [facility] Work Phone: Basophil percentageon 2021 Basophils/100 WBC (Bld) 0.5 % 0-1 [facility] Work Phone: Bilirubin [Mass/Vol] 0.20 mg/dL 0.20-1.00 [facility] Work Phone: Comment on above: For patients on eltr ombopag therapy, use of Dimension [place] TBIL is not recommended. Chloride [Moles/Vol] 105 mmol/L 98-107 [facility] Work Phone: Eosinophils/100 WBC (Bld) 2.1 % 0-5 [facility] Work Phone: Glucose [Mass/Vol] 188 mg/dL 74-106 [facility] Work Phone: Comment on above: Fasting Glucose resu lt greater than or equal to 126 mg/dL suggests DIABETES MELLITUS per A.D.A. criteria. Neutrophils (Bld) [#/Vol] 3.5 10*3/uL 2.0-7.7 [facility] Work Phone: Neutrophils/100 WBC (Bld) 52.9 % 47-70 [facility] Work Phone: Potassium [Moles/Vol] 4.0 mmol/L 3.5-5.1 [facility] Work Phone: Protein [Mass/Vol] 7.6 g/dL 6.4-8.2 [facility] Work Phone: Sodium [Moles/Vol] 138 mmol/L 136-145 [facility] Work [facility]: WBC (Bld) [#/Vol] 6.6 10*3/uL 4.4-11.0 [facility] Work Phone: Blood erythrocytes count (nu mber/volume)on 10-25-2021 RBC (Bld) [#/Vol] 4.16 10*6/uL 4.2-5.4 [facility] Work Phone: Blood hemoglobin measurement (mass/volume)on 10-25-2021 Hemoglobin (Bld) [Mass/Vol] 13.0 g/dL 12.0-15.0 [facility] Work Phone: Blood lymphocytes/100 leukoc yteson 10-25-2021 Lymphocytes/100 WBC (Bld) 38.4 % 19-41 [facility] Work Phone: Blood monocytes/100 leukocyt eson 10-25-2021 Monocytes/100 WBC (Bld) 5.9 % 0-10 [facility] Work Phone: Blood platelet mean volumeon 10-25-2021 Platelet mean volume (Bld) [Entitic vol] 10.6 fL 6.2-12.0 [facility] Work Phone: Determination of erythrocyte mean corpuscular volume (MCV)on 10-25-2021 MCV (RBC) [Entitic vol] 95.4 fL 81-99 [facility] Work Phone: Hematocrit Auto (Bld) [Volum e fraction]on 10-25-2021 Hematocrit (Bld) [Volume fraction] 39.7 % 37-47 [facility] Work Phone: Laboratory - Chemistry and C hemistry - challengeon 10-25-2021 ALP [Catalytic activity/Vol] 92 U/L 45-117 [facility] Work Phone: ALT [Catalytic activity/Vol] 33 U/L 13-56 [facility] Work Phone: CO2 [Moles/Vol] 27.0 mmol/L 21.0-32.0 [facility] Work Phone: Globulin (S) [Mass/Vol] 4.1 g/dL 2.2-4.2 [facility] Work Phone: [phone] Lipase [Catalytic activity/Vol] 89 U/L 73-393 [facility] Work Phone: Urea nitrogen/Creatinine [Mass ratio] 20.7 mg/mg 10-20 [facility] Work Phone: Laboratory - Hematology and Cell countson 10-25-2021 Erythrocyte distribution width (RBC) [Entitic vol] 46.5 fL 35.1-43.9 [facility] Work Phone: Erythrocyte distribution width (RBC) [Ratio] 13.1 % 11.6-14.6 [facility] Work Phone: [phone] Immature granulocytes/100 WBC (Bld) 0.200 % 0.0-0.9 [facility] Work Phone: Comment on above: IG% - Immature Granu locytes (promyelocytes, myelocytes and metamyelocytes) > 1% indicates that a LEFT SHIFT is Present. MCH (RBC) [Entitic mass] 31.3 pg 27.0-32.0 [facility] Work Phone: Nucleated RBC/100 WBC (Bld) [Ratio] 0 % 0-5 [facility] Work Phone: [phone] MCHC Auto (RBC) [Mass/Vol]on 10-25-2021 MCHC (RBC) [Mass/Vol] 32.7 g/dL 32-36 [facility] Work Phone: No Panel Informationon 10-25 Estimated Creatinine Clearance Calc 46.29 ml/min [facility] Work Phone: Estimated GFR (MDRD) Amer 78 mL/min >60 [facility] Work Phone: Comment on above: GFR Calc Estimated GFR (MDRD) Non-Af Amer 64 mL/min >60 [facility] Work Phone: Comment on above: Non- GFR Calc Troponin I High Sensitivity < 3 pg/mL 3.0-54.0 [facility] Work Phone: Comment on above: Please Note: New Gina t Units and Gender Specific Reference Ranges. For more information see Policy Stat Procedure [place] High Sensitivity Troponin (TNIH) and attachments. Platelets bldon 10-25-2021 Platelets (Bld) [#/Vol] 223 10*3/uL 150-450 [facility] Work Phone: Serum or plasma albumin loretta urement (mass/volume)on 10-25-2021 Albumin [Mass/Vol] 3.5 g/dL 3.2-5.0 [facility] Work Phone: Serum or plasma albumin/glob ulin mass ratioon 10-25-2021 Albumin/Globulin [Mass ratio] 0.9 {ratio} 0.9-2.4 [facility] Work Phone: Serum or plasma calcium loretta urement (mass/volume)on 10-25-2021 Calcium [Mass/Vol] 9.1 mg/dL 8.5-10.1 [facility] Work Phone: Serum or plasma creatinine m easurement (mass/volume)on 10-25-2021 Creatinine [Mass/Vol] 0.92 mg/dL 0.55-1.02 [facility] Work Phone: Comment on above: The validity of the calculated GFR & GFRAA in patients over 70 years has not been determined. Clinical correlation is essential. Serum or plasma urea nitroge n measurement (mass/volume)on 10-25-2021 Urea nitrogen [Mass/Vol] 19 mg/dL 7-18 [facility] Work Phone: Thin prep Papanicolaou smear with manual screeningon 10-25-2021 Thin prep Papanicolaou smear with manual screening 22 U/L 15-37 [facility] Work Phone: Thin prep Papanicolaou smear with manual screening 6 5-15 [facility] Work Phone: PROGRESSon 06-03-2018 Protein mass conc HNO ID: [id number] Author: Tila (Pt) Jenelle Service: (none) Author Type: Physical Therapist Type: Progress Notes Filed: 06/03/2018 12:16 PM Note Text: 06/03/2018 [facility] PHYSICAL THERAPY DISCONTINUANCE OF CARE Plan of Care Period: Start of Care Date: 01/05/18 Last Visit Date: 02/25/18 Therapy Program: The following is a summary of the interventions provided for this episode of care; Therapeutic exercise, Neuromuscular re-education, Manual therapy, Patient/Family/Caregiver Education and Modalities: Ultrasound Assessment: The following is the goal status: Goals updated on 02/04/2018. [place] in home exercise program.--MET for current HEP [...] or scheduled additional follow-up appointments. NAVNEET Posada [facility] CNTHERAPYon 02-25-2018 CNTHERAPY OT/PT/Speech Visit (PTWS) -------- LACY ALVARADO ([id number]) 1950 F Date Time Provider Department 02/25/18 7:00 AM TILA ALMANZAR (PT) PTWS Date Time Provider Department Center 02/25/2018 7:00 AM [id number], DIANA (PT)PTWS [facility] Reason for Visit: Physical Therapy [...] CAPSULE,MANDIE* Take 1 capsule by mouth twice* [id number] NIRU * Use 3 Drops in the [...] needs. Patient response monitored throughout treatment. Billing: [facility]: Therapeutic Exercise (57369): 1:1 time: 36 minutes (2 units: 23-37 mins) Modalities Ultrasound (78433) 1:1 time: 8 minutes1 unit: 8-22 mins Total time: 44 minutes Tila Almanzar, PT Tila Almanzar, PT 06/03/2018 12:16 PM Signed 06/03/2018 [facility] PHYSICAL THERAPY DISCONTINUANCE OF CARE Plan of Care Period: Start of Care Date: 01/05/18 Last Visit Date: 02/25/18 Therapy Program: The following is a summary of the interventions provided for this episode of care; Therapeutic exercise, Neuromuscular re-education, Manual therapy, Patient/Family/Caregiver Education and Modalities: Ultrasound Assessment: The following is the goal status: Goals updated on 02/04/2018. [place] in home exercise program.--MET for current HEP [...] follow-up appointments. Tila Almanzar PT -------- Normal [facility] PROGRESSon 02-25-2018 Protein mass conc HNO ID: [id number] Author: Tila (Pt) Jenelle Service: (none) Author [...] update: 03/11/18 SUBJECTIVE: Went to see Dr. Florse and he is ok with waiting for [...] needs. Patient response monitored throughout treatment. Billing: [facility]: Therapeutic Exercise (52187): 1:1 time: 36 minutes (2 units: 23-37 mins) Modalities Ultrasound (65772) 1:1 time: 8 minutes1 unit: 8-22 mins Total time: 44 minutes Tila Almanzar PT Normal [facility] CNOVon 02-22-2018 CNOV Office Visit (PODIWS ) -------- LACY ALVARADO ([id number]) 1950 F Date Time Provider Department 02/22/18 [...] (H) 4.3 - 5.6 % Final Comment: [place] [employer] guidelines indicate that patients with [...] 81 MG TAB Take one(1) tablet daily. ovihnqtv-xmstergzr-hoqjb cortisone (CORTISPORIN) otic solution Use 3 Drops [...] Mynor Flores DPM Referring Provider: MYNOR FLORES [[id number]] Allergies As of Date: 02/22/2018 Noted Allergy [...] [M76.61] Order(s):XR FOOT GENERAL 3V AP/LAT/OBL RT [[id number]] Order #: [id number] FUTURE MRI ANKLE WO IVCON RT [[id number]] Order #: [id number] FUTURE Prescriptions as of 02/22/2018 Sig: VERAPAMIL [...] 81 MG TABLET Take one(1) tablet daily. IGHWQCSX-[id number]-TNOFK NIRU * Use 3 Drops in the [...] by MYNOR FLORES DPM on 02/22/18 Normal [facility] PROGRESSon 02-22-2018 Protein mass conc HNO ID: [id number] Author: John Paul Godinez (Rt) Service: (none) Author Type: Varnish Thinner Type: Progress Notes Filed: 02/22/2018 10:36 AM [...] Gretchen February 22, 2018 8:59 AM Normal [facility] Protein mass conc HNO ID: [id number] Author: Mynor Jinklever Service: (none) Author Type: Physician Type: Progress [...] (H) 4.3 - 5.6 % Final Comment: [place] [employer] guidelines indicate that patients with [...] 81 MG TAB Take one(1) tablet daily. fqxofyrj-llngcdmre-hcalv cortisone (CORTISPORIN) otic solution Use 3 Drops [...] interested in surgery. Mynor Flores DPM Normal [facility] Protein mass conc HNO ID: [id number] Author: Carmelita Limon RN Service: (none) Author [...] comment (PT,) Patient presents to f/u on Berenices, R. She continues with 10/10 pain that comes and goes. She is currently in PT and states it is helping some. She wants to pursue surgery in the future, possibly next summer. Normal [facility] XR FEMUR 2V AP/LAT RTon 02-02 XR [...] DEGENERATIVE CHANGES IN THE HIP AND KNEE. Brake Repair Mechanic: [id number] Transcribe Date/Time: Feb 22 2018 3:06P Dictated by : CHRIS FRANCIS MD This examination was interpreted and the report reviewed and electronically signed by: CHRIS FRANCIS MD on Feb 22 2018 3:15PM EST [id number] Normal [facility] XR FOOT 3V AP/LAT/OBL RTon 1 XR [...] NO CHANGE COMPARED TO THE PREVIOUS EXAM. Brake Repair Mechanic: [id number] Transcribe Date/Time: Feb 22 2018 3:15P Dictated by : CHRIS FRANCIS MD This examination was interpreted and the report reviewed and electronically signed by: CHRIS FRANCIS MD on Feb 22 2018 3:18PM EST [id number] Normal [facility] CNTHERAPYon 02-18-2018 CNTHERAPY OT/PT/Speech Visit (PTWS) -------- LACY ALVARADO ([id number]) 1950 F Date Time Provider Department 02/18/18 7:00 AM TILA ALMANZAR (PT) PTWS Date Time Provider Department Center 02/18/2018 7:00 AM [id number], DIANA (PT)PTWS [facility] Reason for Visit: Physical Therapy [...] CAPSULE,MANDIE* Take 1 capsule by mouth twice* [id number] NIRU * Use 3 Drops in the [...] needs. Patient response monitored throughout treatment. Billing: [facility]: Therapeutic Exercise (43680): 1:1 time: 35 minutes (2 units: 23-37 mins) Modalities Ultrasound (55142) 1:1 time: 8 minutes1 unit: 8-22 mins Total time: 43 minutes Tila Almanzar PT -------- Normal [facility] PROGRESSon 02-18-2018 Protein mass conc HNO ID: [id number] Author: Tila (Pt) Jenelle Service: (none) Author [...] needs. Patient response monitored throughout treatment. Billing: [facility]: Therapeutic Exercise (46012): 1:1 time: 35 minutes (2 units: 23-37 mins) Modalities Ultrasound (05416) 1:1 time: 8 minutes1 unit: 8-22 mins Total time: 43 minutes NAVNEET Posada [facility] CNTHERAPYon 02-11-2018 CNTHERAPY OT/PT/Speech Visit (PTWS) -------- LACY ALVARADO ([id number]) 1950 F Date Time Provider Department 02/11/18 7:45 AM TILA ALMANZAR (PT) PTWS Date Time Provider Department Center 02/11/2018 7:45 AM [id number], DIANA (PT)PTWS [facility] Reason for Visit: Physical Therapy [...] CAPSULE,MANDIE* Take 1 capsule by mouth twice* [id number] NIRU * Use 3 Drops in the [...] Lacy Mera Jenny demonstrated good tolerance to session with [...] and compliance. Patient education as noted. Billing: [facility]: Therapeutic Exercise (15230): 1:1 time: 38 minutes (3 units: 38-52 mins) Total time: 38 minutes Tila Almanzar PT -------- Normal [facility] PROGRESSon 02-11-2018 Protein mass conc HNO ID: [id number] Author: Tila (Navneet) Jenelle Service: (none) Author [...] and compliance. Patient education as noted. Billing: [facility]: Therapeutic Exercise (33945): 1:1 time: 38 minutes (3 units: 38-52 mins) Total time: 38 minutes Tila Almanzar PT Normal [facility] CNTHERAPYon 02-04-2018 CNTHERAPY OT/PT/Speech Visit (PTWS) -------- LACY ALVARADO ([id number]) 1950 F Date Time Provider Department 02/04/18 7:45 AM TILA ALMANZAR (PT) PTWS Date Time Provider Department Center 02/04/2018 7:45 AM [id number], DIANA (PT)PTWS [facility] Reason for Visit: PT Progress [...] CAPSULE,MANDIE* Take 1 capsule by mouth twice* ZXIDRTGB-OJWEVSBEM-DZVDM NIRU * Use 3 Drops in the [...] intensity of pain Goals updated on 02/04/2018. [place] in home exercise program.--MET for current HEP [...] be seen for Therapeutic exercise;Neuromuscular re-education;Manual therapy;Therapeutic activities;Self-custodial management;Gait Training;Patient/Family/ Caregiver Education;Modalities;Fun ctional training;General Conditioning [...] provided in selection of appropriate interventions. Billing: [facility]: Therapeutic Exercise (80888): 1:1 time: 20 minutes (1 unit: 8-22 mins) Total time: 20 minutes Tila Almanzar PT -------- Normal [facility] PROGRESSon 02-04-2018 Protein mass conc HNO ID: [id number] Author: Tila (Pt) Jenelle Service: (none) Author [...] intensity of pain Goals updated on 02/04/2018. [place] in home exercise program.--MET for current HEP [...] be seen for Therapeutic exercise;Neuromuscular re-education;Manual therapy;Therapeutic activities;Self-custodial management;Gait Training;Patient/Family/ Caregiver Education;Modalities;Fun ctional training;General Conditioning [...] provided in selection of appropriate interventions. Billing: [facility]: Therapeutic Exercise (10347): 1:1 time: 20 minutes (1 unit: 8-22 mins) Total time: 20 minutes NAVNEET Posada [facility] CNTHERAPYon 02-02-2018 CNTHERAPY OT/PT/Speech Visit (PTWS) -------- LACY ALVARADO ([id number]) 1950 F Date Time Provider Department 02/02/18 7:45 AM TILA ALMANZAR (PT) BK Date Time Provider Department Center 02/02/2018 7:45 AM [id number], DIANA (PT)PTWS [facility] Reason for Visit: Physical Therapy [...] CAPSULE,MANDIE* Take 1 capsule by mouth twice* WSDUZPZT-DNQAGMTJH-UMHJC NIRU * Use 3 Drops in the [...] Manual Therapy: 1: Prone: IASTM with [employer] Superannuation Clerk Scanner for 13 minutes to R achillies tendon Skilled Intervention: Manual skills to improve joint mobility, ROM, and decrease pain. Utilized anatomy knowledge of the therapist, and assessment of patient's response to intervention. Billing: [facility]: Therapeutic Exercise (56783): 1:1 time: 22 minutes (1 unit: 8-22 mins) Manual Therapy (14760): 1:1 time: 13 minutes (1 unit: 8-22 mins) Total time: 35 minutes Tila Almanzar PT -------- Normal [facility] PROGRESSon 02-02-2018 Protein mass conc HNO ID: [id number] Author: Tila (Pt) Jenelle Service: (none) Author [...] Manual Therapy: 1: Prone: IASTM with [employer] Superannuation Clerk Scanner for 13 minutes to R achillies tendon Skilled Intervention: Manual skills to improve joint mobility, ROM, and decrease pain. Utilized anatomy knowledge of the therapist, and assessment of patient's response to intervention. Billing: [facility]: Therapeutic Exercise (74196): 1:1 time: 22 minutes (1 unit: 8-22 mins) Manual Therapy (04821): 1:1 time: 13 minutes (1 unit: 8-22 mins) Total time: 35 minutes Tila Almanzar, PT Normal [facility] PROGRESSon 01-31-2018 Protein mass conc HNO ID: [id number] Author: Tila (Pt) Jenelle Service: (none) Author [...] Manual Therapy: 1: Prone: IASTM with [employer] Superannuation Clerk Scanner for 8 minutes to R achillies [...] needs. Patient response monitored throughout treatment. Billing: [facility]: Therapeutic Exercise (16485): 1:1 time: 20 minutes (2 units: 23-37 mins) Manual Therapy (52059): 1:1 time: 12 minutes (1 unit: 8-22 mins) Modalities Ultrasound (37751) 1:1 time: 10 minutes1 unit: 8-22 mins Total time: 42 minutes Tila Almanzar PT Normal [facility] CNTHERAPYon 01-28-2018 CNTHERAPY OT/PT/Speech Visit (PTWS) -------- LACY ALVARADO ([id number]) 1950 F Date Time Provider Department 01/28/18 7:45 AM TILA ALMANZAR (PT) PTWS Date Time Provider Department Center 01/28/2018 7:45 AM [id number], DIANA (PT)PTWS [facility] Reason for Visit: Physical Therapy [...] CAPSULE,MANDIE* Take 1 capsule by mouth twice* KMHEBSAC-QIJFMOQOG-GWQZA NIRU * Use 3 Drops in the [...] Manual Therapy: 1: Prone: IASTM with Hawk Woodpecker Education Scanner for 8 minutes to R achillies [...] needs. Patient response monitored throughout treatment. Billing: [facility]: Therapeutic Exercise (75960): 1:1 time: 20 minutes (2 units: 23-37 mins) Manual Therapy (63274): 1:1 time: 12 minutes (1 unit: 8-22 mins) Modalities Ultrasound (62929) 1:1 time: 10 minutes1 unit: 8-22 mins Total time: 42 minutes Tila Almanzar PT -------- Normal [facility] PROGRESSon 01-27-2018 Protein mass conc HNO ID: [id number] Author: Tila (Pt) Jenelle Service: (none) Author Type: Physical Therapist Type: Progress Notes Filed: 01/27/2018 12:42 PM Note Text: Episode Visit Count: 5 Therapist That Will Oversee The Plan Of Care: Tial Almanzar PT Start of Care Date: 01/05/18 Onset Date: 01/06/16 Plan of Care Certification Date: 01/05/18 Patient Identified by Name and Date of : Yes REHABILITATION AND SPORTS THERAPY PHYSICAL THERAPY TREATMENT NOTE ASSESSMENT: Lacy Alvarado demonstrated difficulty with set up for weight bearing gastroc and soleus stretches but once set up she had not problems. Tried [employer] Superannuation Clerk scanner tool for IASTM and Kinesiotaping. Will assess at next session. The patient will continue to benefit from continued skilled physical therapy for thex ex, manual, and US for pain control of R heel pain. PLAN FOR NEXT VISIT: See how liked Hawk Superannuation Clerk tools and kinesiotape; BAPS Board for Ankle [...] cuing. Manual Therapy: 1: Prone: IASTM with Profig Scanner for 6 minutes to R achillies [...] needs. Patient response monitored throughout treatment. Billing: [facility]: Therapeutic Exercise (61147): 1:1 time: 20 minutes (1 unit: 8-22 mins) Manual Therapy (36826): 1:1 time: 15 minutes (1 unit: 8-22 mins) Modalities Ultrasound (61749) 1:1 time: 10 minutes1 unit: 8-22 mins Total time: 45 minutes Tila Almanzar PT Normal [facility] CNTHERAPYon 01-26-2018 CNTHERAPY OT/PT/Speech Visit (PTWS) -------- LACY ALVARADO ([id number]) 1950 F Date Time Provider Department 01/26/18 7:00 AM TILA ALMANZAR (PT) PTWS Date Time Provider Department Center 01/26/2018 7:00 AM [id number], DIANA (PT)PTWS [facility] Reason for Visit: Physical Therapy [...] CAPSULE,MANDIE* Take 1 capsule by mouth twice* BYWKUNBM-JONWUVCBD-UJUCA NIRU * Use 3 Drops in the [...] up she had not problems. Tried [employer] Superannuation Clerk scanner tool for IASTM and Kinesiotaping. Will assess at next session. The patient will continue to benefit from continued skilled physical therapy for thex ex, manual, and US for pain control of R heel pain. PLAN FOR NEXT VISIT: See how liked [employer] Superannuation Clerk tools and kinesiotape; BAPS Board for Ankle [...] Manual Therapy: 1: Prone: IASTM with [employer] Superannuation Clerk Scanner for 6 minutes to R achillies [...] needs. Patient response monitored throughout treatment. Billing: [facility]: Therapeutic Exercise (36839): 1:1 time: 20 minutes (1 unit: 8-22 mins) Manual Therapy (82135): 1:1 time: 15 minutes (1 unit: 8-22 mins) Modalities Ultrasound (62896) 1:1 time: 10 minutes1 unit: 8-22 mins Total time: 45 minutes Tila Almanzar PT -------- Normal [facility] PROGRESSon 01-24-2018 Protein mass conc HNO ID: [id number] Author: Tila (Pt) Jenelle Service: (none) Author [...] needs. Patient response monitored throughout treatment. Billing: [facility]: Therapeutic Exercise (34205): 1:1 time: 19 minutes (1 unit: 8-22 mins) Manual Therapy (73639): 1:1 time: 8 minutes (1 unit: 8-22 mins) Modalities Ultrasound (80425) 1:1 time: 15 minutes1 unit: 8-22 mins Total time: 42 minutes Tila Almanzar PT Normal [facility] CNTHERAPYon 01-21-2018 CNTHERAPY OT/PT/Speech Visit (PTWS) -------- LACY ALVARADO ([id number]) 1950 F Date Time Provider Department 01/21/18 7:45 AM TILA ALMANZAR (PT) PTWS Date Time Provider Department Center 01/21/2018 7:45 AM [id number], DIANA (PT)PTWS [facility] Reason for Visit: Physical Therapy [...] CAPSULE,MANDIE* Take 1 capsule by mouth twice* ORILOILQ-PQRORBVMU-HPJHI NIRU * Use 3 Drops in the [...] needs. Patient response monitored throughout treatment. Billing: [facility]: Therapeutic Exercise (21428): 1:1 time: 19 minutes (1 unit: 8-22 mins) Manual Therapy (61505): 1:1 time: 8 minutes (1 unit: 8-22 mins) Modalities Ultrasound (05948) 1:1 time: 15 minutes1 unit: 8-22 mins Total time: 42 minutes Tila Almanzar PT -------- Normal [facility] CNTHERAPYon 01-12-2018 CNTHERAPY OT/PT/Speech Visit (PTWS) -------- LACY ALVARADO ([id number]) 1950 F Date Time Provider Department 01/12/18 7:00 AM TILA ALMANZAR (PT) PTWS Date Time Provider Department Center 01/12/2018 7:00 AM [id number], DIANA (PT)PTWS [facility] Reason for Visit: Physical Therapy [...] CAPSULE,MANDIE* Take 1 capsule by mouth twice* CRVHRRHM-GCAUUDQML-XRAYD NIRU * Use 3 Drops in the [...] needs. Patient response monitored throughout treatment. Billing: [facility]: Therapeutic Exercise (89243): 1:1 time: 20 minutes (1 unit: 8-22 mins) Manual Therapy (77423): 1:1 time: 8 minutes (1 unit: 8-22 mins) Modalities Ultrasound (01172) 1:1 time: 15 minutes1 unit: 8-22 mins Total time: 43 minutes Tila Almanzar PT -------- Normal [facility] PROGRESSon 01-12-2018 Protein mass conc HNO ID: [id number] Author: Tila (Pt) Jenelle Service: (none) Author [...] needs. Patient response monitored throughout treatment. Billing: [facility]: Therapeutic Exercise (55839): 1:1 time: 20 minutes (1 unit: 8-22 mins) Manual Therapy (21447): 1:1 time: 8 minutes (1 unit: 8-22 mins) Modalities Ultrasound (24224) 1:1 time: 15 minutes1 unit: 8-22 mins Total time: 43 minutes Tila Almanzar PT Normal [facility] CNOVon 01-11-2018 CNOV Office Visit (PODIWS ) -------- LACY ALVARADO ([id number]) 1950 F Date Time Provider Department 01/11/18 9:10 AM MYNOR FLORES During your visit today, we recorded the following information about you: Mynor Flores DPM 01/11/2018 9:48 AM Signed ? Mynor Flores DPM Department of Podiatry [facility] [address] Dept: [phone] Dept 01/11/2018 Follow Up Podiatric Office Visit: [...] Take 1 capsule by mouth twice daily. 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 Mynor Flores DPM Department of Podiatry [facility] [address] Dept: [phone] Dept 01/11/2018 Follow Up Podiatric Office Visit: HPI: Lacy Alvarado is a 67 year old female. Patient presents to discuss options for Edis R. She has constant pain to R [...] Take 1 capsule by mouth twice daily. 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 Lives with son in [place] REVIEW OF SYSTEMS: CONSTITUTIONAL: No fevers, chills, [...] in 6 weeks Mynor Flores DPM Normal [facility] CNTHERAPYon 01-07-2018 CNTHERAPY OT/PT/Speech Visit (PTWS) -------- LACY ALVARADO ([id number]) 1950 F Date Time Provider Department 01/07/18 7:00 AM TILA ALMANZAR (PT) PTWS Date Time Provider Department Center 01/07/2018 7:00 AM [id number], DIANA (PT)PTWS [facility] Reason for Visit: Physical Therapy [...] CAPSULE,MANDIE* Take 1 capsule by mouth twice* PDAPPPPC-MCSAWYYQT-YLSIX NIRU * Use 3 Drops in the [...] PHYSICAL THERAPY TREATMENT NOTE ASSESSMENT: Lacy Mera Alvarado demonstrated good tolerance to session with [...] needs. Patient response monitored throughout treatment. Billing: [facility]: Therapeutic Exercise (01869): 1:1 time: 15 minutes (1 unit: 8-22 mins) Modalities Ultrasound (50139) 1:1 time: 15 minutes1 unit: 8-22 mins Total time: 30 minutes Tila Almanzar PT -------- Normal [facility] PROGRESSon 01-07-2018 Protein mass conc HNO ID: [id number] Author: Tila (Pt) Jenelle Service: (none) Author [...] Lacy Mera Jenny demonstrated good tolerance to session with [...] needs. Patient response monitored throughout treatment. Billing: [facility]: Therapeutic Exercise (56631): 1:1 time: 15 minutes (1 unit: 8-22 mins) Modalities Ultrasound (71477) 1:1 time: 15 minutes1 unit: 8-22 mins Total time: 30 minutes NAVNEET Posada [facility] CNTHERAPYon 01-05-2018 CNTHERAPY OT/PT/Speech Visit (PTWS) -------- LACY ALVARADO ([id number]) 1950 F Date Time Provider Department 01/05/18 7:00 AM TILA ALMANZAR (PT) PTWS Date Time Provider Department Center 01/05/2018 7:00 AM [id number], DIANA (PT)PTWS [facility] Reason for Visit: PT Eval [...] CAPSULE,MANDIE* Take 1 capsule by mouth twice* FUQRFORQ-QEBZMTHDA-KDLGL NIRU * Use 3 Drops in the [...] of Care: created on 01/05/18 through 03/16/18 [place] in home exercise program. Patient will decrease [...] Planned Treatment Interventions: Therapeutic exercise;Neuromuscular re-education;Manual therapy;Therapeutic activities;Self-custodial management;Gait Training;Patient/Family/ Caregiver Education;Modalities;Fun ctional training;General ConditioningUltrasound [...] facilitated with verbal, visual and tactile cuing. Self-Penitentiary Management: 1: Recommended to stop wearing high [...] on clinical presentation, deficits, and needs. Billing: [facility]: Evaluation - Low Complexity (22025) Therapeutic Exercise (73635): 1:1 time: 15 minutes (1 unit: 8-22 mins) Educ Home Mgmt (87038): 1:1 time: 10 minutes (1 unit: 8-22 mins) Total time: 38 minutes Tila Almanzar PT -------- Normal [facility] PROGRESSon 01-05-2018 Protein mass conc HNO ID: [id number] Author: Tila Almanzar Service: (none) Author Type: [...] of Care: created on 01/05/18 through 03/16/18 [place] in home exercise program. Patient will decrease [...] Planned Treatment Interventions: Therapeutic exercise;Neuromuscular re-education;Manual therapy;Therapeutic activities;Self-custodial management;Gait Training;Patient/Family/ Caregiver Education;Modalities;Fun ctional training;General ConditioningUltrasound [...] findings with falls interview Pain Score: (Currenlty: 510 Worst: 10) Pain Location: Heel - Right [...] facilitated with verbal, visual and tactile cuing. Self-Penitentiary Management: 1: Recommended to stop wearing high [...] on clinical presentation, deficits, and needs. Billing: [facility]: Evaluation - Low Complexity (47910) Therapeutic Exercise (79222): 1:1 time: 15 minutes (1 unit: 8-22 mins) Educ Home Mgmt (25290): 1:1 time: 10 minutes (1 unit: 8-22 mins) Total time: 38 minutes Tila Almanzar PT Normal [facility] Ruddy 12-09-2017 CNOV Office Visit (PODIWS ) -------- LACY ALVARADO ([id number]) 1950 F Date Time Provider Department 12/09/17 7:55 AM MYNOR FLORES During your visit today, we recorded the following information about you: Mynor Flores DPM 12/09/2017 8:20 AM Signed ? Mynor Flores DPM Department of Podiatry [address] [place] [address] Dept: [phone] Dept 12/09/2017 Follow Up Podiatric Office Visit: HPI: Lacy Alvarado is a 67 year old female. Patient presents for follow up of [place] Deformity, R. Patient reports constant pain to R heel. Rates pain 8-02/10 that is constant burning and achy. Worsened [...] Take 1 capsule by mouth twice daily. 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 Lives with son in [place] REVIEW OF SYSTEMS: CONSTITUTIONAL: No fevers, chills, [...] Mynor Flores DPM Referring Provider: MYNOR FLORES [[id number]] Allergies As of Date: 12/09/2017 Noted Allergy [...] [R09.89] Order(s):PVR ANK PRESS [facility] [7307311] Order #: [id number] FUTURE CONSULT TO PHYSICAL THERAPY [9032] Order #: [id number]: 1 Prescriptions as of 12/09/2017 Sig: VERAPAMIL [...] CAPSULE,MANDIE* Take 1 capsule by mouth twice* LMVHVSNZ-CQKWZJETL-TSYLR NIRU * Use 3 Drops in the [...] by MYNOR FLORES DPM on 12/09/17 Normal [facility] PROGRESSon 12-09-2017 Protein mass conc HNO ID: [id number] Author: Mynor Flores Service: (none) Author Type: Physician Type: Progress Notes Filed: 12/09/2017 8:20 AM Note Text: ? Mynor Flores DPM Department of Podiatry [address] [place] [address] Dept: [phone] Dept 12/09/2017 Follow Up Podiatric Office Visit: [...] Take 1 capsule by mouth twice daily. 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 Brake Repair Mechanic: PSCB ? Transcribe Date/Time: Oct 14 2017 [...] 81 MG TAB Take one(1) tablet daily. aqfihjdz-nbrhlufzj-wlxal cortisone (CORTISPORIN) otic solution Use 3 Drops [...] anxiety) This note was partially generated using Luminate voice recognition system, and there may be some incorrect words, spellings, and punctuation that were not noted in checking the note before saving. Jossue Finley MD Referring Provider: JOSSUE FINLEY [[id number]] Allergies As of Date: 10/15/2017 Noted Allergy [...] 81 MG TABLET Take one(1) tablet daily. FLOJPAIB-PXUOCYOPM-YKPSK NIRU * Use 3 Drops in the [...] BUILDER 10/15/2017 10/15/2017 Class: Suppress Questions Route: [facility] Encounter Status:Closed by JOSSUE FINLEY MD on 10/15/17 Normal [facility] PROGRESSon 10-15-2017 Protein mass conc HNO ID: [id number] Author: Jossue Finley Service: (none) Author Type: Physician Type: Progress Notes Filed: 10/15/2017 4:13 PM Note Text: Jossue Finley MD Department of Orthopaedics Orthopaedics [address] [facility] [address] Dept: [phone] Dept October 15, 2017 CHIEF COMPLAINT: new [...] MD Imaging: IMPRESSION: MILD DEGENERATIVE JOINT DISEASE. Brake Repair Mechanic: RADHA ? Transcribe Date/Time: Oct 14 2017 [...] low transverse - COLONOSCOP W/ OR W/O [facility] SPEC 01/12/2013 Colonoscopy - EGD W/O OR W/BRUSH/WASH 07/16/15 EGD - HYSTERECTOMY HX 2007 Hysterectomy, supracervical - KNEE SCOPE,DIAGNOSTIC Left 1997 [...] 81 MG TAB Take one(1) tablet daily. rymcrhaw-sbitqdutm-lwrzc cortisone (CORTISPORIN) otic solution Use 3 Drops [...] anxiety) This note was partially generated using Luminate voice recognition system, and there may be some incorrect words, spellings, and punctuation that were not noted in checking the note before saving. Jossue Finley MD Normal [facility] Protein mass conc HNO ID: [id number] Author: Norma Leone RN Service: (none) Author [...] afterward to clean out scar tissue. Normal [facility] PROGRESSon 10-14-2017 Protein mass conc HNO ID: [id number] Author: John Paul Frias (Tech) Service: (none) Author Type: Varnish Thinner Type: Progress Notes Filed: 10/14/2017 9:03 AM [...] Dozier October 14, 2017 9:02 AM Normal [facility] XR KNEE 4V AP/PA BOTH+LAT/ME R LTon 10-14-2017 XR KNEE 4V AP/PA BOTH+LAT/VÍCTOR LT * * *Final Report* * * [...] No fracture. IMPRESSION: MILD DEGENERATIVE JOINT DISEASE. Brake Repair Mechanic: RADHA Transcribe Date/Time: Oct 14 2017 12:16P Dictated by : CHRIS FRANCIS MD This examination was interpreted and the report reviewed and electronically signed by: CHRIS FRANCIS MD on Oct 14 2017 12:20PM EST [id number] Normal [facility] CNCOon 07-20-2017 CNCO HNO ID: [id number] Author: Mammography Coordinator Service: (none) Author Type: Physician Type: Letter Filed: 07/21/2017 11:31 PM Note Text: July 20, 2017 PID: [id number] Lacy Alvarado [address] [place] [address] Dear Ms. Alvarado, We are pleased to [...] report will be kept on file at [facility] as part of your permanent medical record and are available for your continuing care. Thank you for allowing us to help in meeting your health care needs. Sincerely, Dr. Jaime Interpreting Radiologist [facility] (Normal over 40) Normal [facility] Lipid Panel, Bas[place] 018 Cholesterol in HDL mass conc 49 mg/dL Normal >39 [facility] Comment on above: Result Comment: 40-5 9 mg/dL, Acceptable >59 mg/dL, High: Negative risk factor for coronary heart disease <40 mg/dL, Low: Positive risk factor for coronary heart disease Performed By: #### L IPB #### [facility] [employer] [address] [place], [place] [id number] Cholesterol in LDL mass conc 157 mg/dL High <100 [facility] Comment on above: Result Comment: <100 mg/dL, Optimal 100-129 mg/dL, Near optimal/above optimal 130-159 mg/dL, Borderline high 160-189 mg/dL, High >189 mg/dL, Very high Secondary prevention optimal LDL Cholesterol levels are recommended to be < 70 mg/dL Performed By: #### L IPB #### [facility] [employer] [address] [place], [place] [id number] Cholesterol mass conc 225 mg/dL High <[address] [facility] Comment on above: Result Comment: <200 mg/dL, Desirable 200-239 mg/dL, Borderline high >239 mg/dL, High Performed By: #### L IPB #### [facility] [employer] [address] [place], [place] [address] Fasting Time 2 hrs Normal [facility] Comment on above: Performed By: #### L IPB #### [facility] [employer] [address], [place] [address] LDL:HDL Ratio 3.20 High <2.54 [facility] Comment on above: Result Comment: Refe rence: 1. National Cholesterol Education Program ATP III Guideline At-A-Glance Quick Desk Reference: National Heart, Lung, and Blood Jay. National Institutes of Health. 2001: NIH Publication No. 01-3305. 2. An International Atherosclerosis Society position paper: global recommendations for the management of dyslipidemia: executive summary, Atherosclerosis. 2014: 232(2):410-413. Performed By: #### L IPB #### [facility] [address] [address] Non HDL Cholesterol 176 mg/dL High <130 [facility] Comment on above: Result Comment: <130 mg/dL, Optimal 130-159 mg/dL, Near optimal/above optimal 160-189 mg/dL, Borderline high 190-219 mg/dL, High >219 mg/dL, Very high Secondary prevention optimal non HDL Cholesterol levels are recommended to be < 100 mg/dL Performed By: #### L IPB #### [address] [place] [place] [address] TC:HDL Ratio 4.59 Normal <5.10 [facility] Comment on above: Performed By: #### L IPB #### [address] [place] [place] [address] Triglyceride mass conc 97 mg/dL Normal <150 [facility] Comment on above: Result Comment: <150 mg/dL, Normal 150-199 mg/dL, Borderline high 200-499 mg/dL, High >499 mg/dL, Very high Performed By: #### L IPB #### [facility] [address] [phone] VLDL Cholesterol 19 mg/dL Normal <30 [facility] Comment on above: Performed By: #### L IPB #### [facility] [employer] [address] [address] HAYLEE SCREENINGon 07-20-2017 HAYLEE SCREENING * * *Final Report* * * DATE OF EXAM: Jul 20 2017 8:44AM WOW [id number] - [facility] SCREENING / PROCEDURE REASON: Encounter for screening mammogram for malignant neoplasm of breast * * * * Physician Interpretation * * * * RESULT: #[id number] - HAYLEE SCREENING BILATERAL DIGITAL SCREENING MAMMOGRAM [...] made to exams dated: 03/11/2016 mammogram - [facility] and 12/19/2014 mammogram - [facility]. There are scattered fibroglandular elements in both breasts. No significant masses, calcifications, or other findings are seen in either breast. There has been no significant interval change. IMPRESSION: NEGATIVE There is no mammographic evidence of malignancy.A 1 year screening mammogram is recommended. Nilay Jaime M.D. cp/madeline:07/20/2017 09:15:21 Television Servicer: Brielle HOPKINS(R)(Raymundo), [facility] letter sent: Normal over 40 Mammogram BI-RADS: 1 Negative Brake Repair Mechanic: Madeline Transcribe Date/Time: Jul 20 2017 8:46A Dictated by: NILAY JAIME MD This examination was interpreted and the report reviewed and electronically signed by: NILAY JAIME MD on Jul 20 2017 9:15AM EST [id number] Normal [facility] CNOVon 02-09-2017 CNOV Office Visit (AGCARDWST) LACY REDDY ([id number]) 1950 [facility] Time Provider Zrqvugqqrs83/9/17 9:00 AM CHRIS YAO AGCARDWSTashi During your visit today, we recorded the following information about you: Pulse Blood pressure Weight 88/minute 136/74 78.1 kgChris Yao MD 02/09/2017 5:28 PM SignedPERTINENT CARDIAC HISTORYChest [facility]/PLAN:Lacy Alvarado is doing well. She's [...] with treatment plan.This note was generated using S[employer]im[employer] recognition system, and there may besome incorrect [...] to 118.Electronically Signed:Chris Yao MDOctober 2016 9:06 [facility]: Kasie Pink MDReferring Provider: SHAD BRISENO [[id number]]Allergies As of Date: 02/09/2017 Noted Allergy ReactionSEASONAL ALLERGIES 01/30/2014 14 - Other: See Comments Comments: Cats, Cockroach, Dust mites, molds, weedsDate Reviewed: 02/09/2017Reviewed by: Farooq Avila) KARINA Cottrell - Fully AssessedReason for Visit: [...] CAPSULE,MANDIE* Take 1 capsule by mouth twice* [id number] NIRU * Use 3 Drops in the [...] SmartForms filed during this visit:Extended VitalsEncounter Number: [id number] Status:Closed by CHRIS YAO MD on 02/09/17 [facility] PROGRESSon 02-09-2017 PROGRESS HNO ID: [id number]: Chris Pelayo: (none)Author Type: PhysicianType: Progress NotesFiled: [...] with treatment plan.This note was generated using Luminate voice recognition system, and theremay be some [...] LDL has improved to 118.Electronically Signed:[facility]06 [facility]: Kasie Pink MD [facility] No Panel Information SARS-CoV-2 & FLU Antigen (Rapid) [facility] Work Phone: S. pyogenes Ag IF Ql (Throat ) S. pyogenes Ag IA Ql (Unsp spec) [facility] Work Phone: Vital Signs Date Time Vital Sign Value Performing Clinician Facility 11-16-2024 11:04-0400 Body height 157.[address] Mayda Garcia MD Work Phone: [facility] 11-16-2024 11:04-0400 Body mass index (BMI) [Ratio] 30.8 kg/m2 Dr. Mayda Garcia MD Work Phone: [facility] 11-16-2024 11:04-0400 Body temperature 96.9 [degF] Dr. Mayda Garcia MD Work Phone: [facility] 11-16-2024 11:04-0400 Body weight 76.[address] Mayda Garcia MD Work Phone: [facility] 11-16-2024 11:04-0400 Diastolic blood pressure 68 mm[Hg] Dr. Mayda Garcia MD Work Phone: [facility] 11-16-2024 11:04-0400 Heart rate 97 /min Dr. Mayda Garcia MD Work Phone: [facility] 11-16-2024 11:04-0400 Respiratory rate 16 /min Dr. Mayda Garcia MD Work Phone: [facility] 11-16-2024 11:04-0400 SaO2% (BldA) [Mass fraction] 99 % Dr. Mayda Garcia MD Work Phone: [facility] 11-16-2024 11:04-0400 Systolic blood pressure 120 mm[Hg] Dr. Mayda Garcia MD Work Phone: [facility] 11-14-2024 14:25-0400 Body temperature 97 [degF] Dr. Mayda Garcia MD Work Phone: [facility] 11-14-2024 14:25-0400 Diastolic blood pressure 63 mm[Hg] Dr. Mayda Garcia MD Work Phone: [facility] 11-14-2024 14:25-0400 Heart rate 76 /min Dr. Mayda Garcia MD Work Phone: [facility] 11-14-2024 14:25-0400 Respiratory rate 12 /min Dr. Mayda Garcia MD Work Phone: [facility] 11-14-2024 14:25-0400 SaO2% (BldA) [Mass fraction] 100 % Dr. Mayda Garcia MD Work Phone: [facility] 11-14-2024 14:25-0400 Systolic blood pressure 127 mm[Hg] Dr. Mayda Garcia MD Work Phone: [facility] 11-13-2024 21:42-0400 Body height 157.[address] Mayda Garcia MD Work Phone: [facility] 11-13-2024 21:42-0400 Body mass index (BMI) [Ratio] 31.1 kg/m2 Dr. Mayda Garcia MD Work Phone: [facility] 11-13-2024 21:42-0400 Body weight 77.[address] Mayda Garcia MD Work Phone: [facility] 11-13-2024 21:00-0400 Diastolic blood pressure 82 mm[Hg] Dr. Mayda Garcia MD Work Phone: [facility] 11-13-2024 21:00-0400 Heart rate 89 /min Dr. Mayda Garcia MD Work Phone: [facility] 11-13-2024 21:00-0400 Respiratory rate 28 /min Dr. Mayda Garcia MD Work Phone: [facility] 11-13-2024 21:00-0400 SaO2% (BldA) [Mass fraction] 99 % Dr. Mayda Garcia MD Work Phone: [facility] 11-13-2024 21:00-0400 Systolic blood pressure 139 mm[Hg] Dr. Mayda Garcia MD Work Phone: [facility] 11-13-2024 20:47-0400 Body temperature 98.2 [degF] Dr. Mayda Garcia MD Work Phone: [facility] 11-13-2024 16:23-0400 Body height 157.[address] Mayda Garcia MD Work Phone: [facility] 11-07-2024 11:15-0400 Body height 157.[address] Mayda Garcia MD Work Phone: [facility] 11-07-2024 11:15-0400 Body mass index (BMI) [Ratio] 31.4 kg/m2 Dr. Mayda Garcia MD Work Phone: [facility] 11-07-2024 11:15-0400 Body temperature 98.2 [degF] Dr. Mayda Garcia MD Work Phone: [facility] 11-07-2024 11:15-0400 Body weight 78.[address] Mayda Garcia MD Work Phone: [facility] 11-07-2024 11:15-0400 Diastolic blood pressure 77 mm[Hg] Dr. Mayda Garcia MD Work Phone: [facility] 11-07-2024 11:15-0400 Heart rate 94 /min Dr. Mayda Garcia MD Work Phone: [facility] 11-07-2024 11:15-0400 Respiratory rate 17 /min Dr. Mayda Garcia MD Work Phone: [facility] 11-07-2024 11:15-0400 SaO2% (BldA) [Mass fraction] 99 % Dr. Mayda Garcia MD Work Phone: [facility] 11-07-2024 11:15-0400 Systolic blood pressure 119 mm[Hg] Dr. Mayda Garcia MD Work Phone: [facility] 10-03-2024 11:23-0400 Body temperature 98.6 [degF] Dr. Mayda Garcia MD Work Phone: [facility] 10-03-2024 11:23-0400 Body weight 78.[address] Mayda Garcia MD Work Phone: [facility] 10-03-2024 11:23-0400 Diastolic blood pressure 79 mm[Hg] Dr. Mayda Garcia MD Work Phone: [facility] 10-03-2024 11:23-0400 Heart rate 88 /min Dr. Mayda Garcia MD Work Phone: [facility] 10-03-2024 11:23-0400 Respiratory rate 17 /min Dr. Mayda Garcia MD Work Phone: [facility] 10-03-2024 11:23-0400 SaO2% (BldA) [Mass fraction] 98 % Dr. Mayda Garcia MD Work Phone: [facility] 10-03-2024 11:23-0400 Systolic blood pressure 139 mm[Hg] Dr. Mayda Garcia MD Work Phone: [facility] 09-28-2024 08:21-0400 Body mass index (BMI) [Ratio] 30.9 kg/m2 Dr. Mayda Garcia MD Work Phone: [facility] 09-28-2024 08:21-0400 Body temperature 97.4 [degF] Dr. Mayda Garcia MD Work Phone: [facility] 09-28-2024 08:21-0400 Body weight 76.[address] Mayda Garcia MD Work Phone: [facility] 09-28-2024 08:21-0400 Diastolic blood pressure 77 mm[Hg] Dr. Mayda Garcia MD Work Phone: [facility] 09-28-2024 08:21-0400 Heart rate 78 /min Dr. Mayda Garcia MD Work Phone: [facility] 09-28-2024 08:21-0400 Respiratory rate 18 /min Dr. Mayda Garcia MD Work Phone: [facility] 09-28-2024 08:21-0400 SaO2% (BldA) [Mass fraction] 99 % Dr. Mayda Garcia MD Work Phone: [facility] 09-28-2024 08:21-0400 Systolic blood pressure 148 mm[Hg] Dr. Mayda Garcia MD Work Phone: [facility] 09-21-2024 11:14-0400 Body height 157.[address] Mayda Garcia MD Work Phone: [facility] 09-21-2024 11:14-0400 Body mass index (BMI) [Ratio] 31.1 kg/m2 Dr. Mayda Garcia MD Work Phone: [facility] 09-21-2024 11:14-0400 Body temperature 96 [degF] Dr. Mayda Garcia MD Work Phone: [facility] 09-21-2024 11:14-0400 Body weight 77.[address] Mayda Garcia MD Work Phone: [facility] 09-21-2024 11:14-0400 Diastolic blood pressure 76 mm[Hg] Dr. Mayda Garcia MD Work Phone: [facility] 09-21-2024 11:14-0400 Heart rate 100 /min Dr. Mayda Garcia MD Work Phone: [facility] 09-21-2024 11:14-0400 Respiratory rate 16 /min Dr. Mayda Garcia MD Work Phone: [facility] 09-21-2024 11:14-0400 SaO2% (BldA) [Mass fraction] 97 % Dr. Mayda Garcia MD Work Phone: [facility] 09-21-2024 11:14-0400 Systolic blood pressure 126 mm[Hg] Dr. Mayda Garcia MD Work Phone: [facility] 09-19-2024 07:29-0400 Body mass index (BMI) [Ratio] 0.1 kg/m2 Dr. Mayda Garcia MD Work Phone: [facility] 09-19-2024 07:29-0400 Body weight 0.[address] Mayda Garcia MD Work Phone: [facility] 09-19-2024 07:29-0400 Diastolic blood pressure 82 mm[Hg] Dr. Mayda Garcia MD Work Phone: [facility] 09-19-2024 07:29-0400 Heart rate 91 /min Dr. Mayda Garcia MD Work Phone: [facility] 09-19-2024 07:29-0400 Respiratory rate 18 /min Dr. Mayda Garcia MD Work Phone: [facility] 09-19-2024 07:29-0400 SaO2% (BldA) [Mass fraction] 95 % Dr. Mayda Garcia MD Work Phone: [facility] 09-19-2024 07:29-0400 Systolic blood pressure 125 mm[Hg] Dr. Mayda Garcia MD Work Phone: [facility] 09-16-2024 19:40-0400 Body temperature 98.2 [degF] Dr. Mayda Garcia MD Work Phone: [facility] 09-16-2024 19:40-0400 Diastolic blood pressure 83 mm[Hg] Dr. Mayda Garcia MD Work Phone: [facility] 09-16-2024 19:40-0400 Heart rate 78 /min Dr. Mayda Garcia MD Work Phone: [facility] 09-16-2024 19:40-0400 Respiratory rate 24 /min Dr. Mayda Garcia MD Work Phone: [facility] 09-16-2024 19:40-0400 SaO2% (BldA) [Mass fraction] 99 % Dr. Mayda Garcia MD Work Phone: [facility] 09-16-2024 19:40-0400 Systolic blood pressure 137 mm[Hg] Dr. Mayda Garcia MD Work Phone: [facility] 09-16-2024 15:08-0400 Body height 157.[address] Mayda Garcia MD Work Phone: [facility] 08-10-2024 11:01-0400 Body mass index (BMI) [Ratio] 30.3 kg/m2 Dr. Mayda Garcia MD Work Phone: [facility] 08-10-2024 11:01-0400 Body temperature 97 [degF] Dr. Mayda Garcia MD Work Phone: [facility] 08-10-2024 11:01-0400 Body weight 75.[address] Mayda Garcia MD Work Phone: [facility] 08-10-2024 11:01-0400 Diastolic blood pressure 60 mm[Hg] Dr. Mayda Garcia MD Work Phone: [facility] 08-10-2024 11:01-0400 Heart rate 93 /min Dr. Mayda Garcia MD Work Phone: [facility] 08-10-2024 11:01-0400 Respiratory rate 16 /min Dr. Mayda Garcia MD Work Phone: [facility] 08-10-2024 11:01-0400 SaO2% (BldA) [Mass fraction] 97 % Dr. Mayda Garcia MD Work Phone: [facility] 08-10-2024 11:01-0400 Systolic blood pressure 108 mm[Hg] Dr. Mayda Garcia MD Work Phone: [facility] 07-15-2024 16:16-0400 Body temperature 97.6 [degF] Dr. Mayda Garcia MD Work Phone: [facility] 07-15-2024 16:16-0400 Diastolic blood pressure 79 mm[Hg] Dr. Mayda Garcia MD Work Phone: [facility] 07-15-2024 16:16-0400 Heart rate 98 /min Dr. Mayda Garcia MD Work Phone: [facility] 07-15-2024 16:16-0400 Respiratory rate 18 /min Dr. Mayda Garcia MD Work Phone: [facility] 07-15-2024 16:16-0400 SaO2% (BldA) [Mass fraction] 99 % Dr. Mayda Garcia MD Work Phone: [facility] 07-15-2024 16:16-0400 Systolic blood pressure 161 mm[Hg] Dr. Mayda Garcia MD Work Phone: [facility] 07-15-2024 12:12-0400 Body height 157.[address] Mayda Garcia MD Work Phone: [facility] 07-15-2024 12:12-0400 Body mass index (BMI) [Ratio] 30.6 kg/m2 Dr. Mayda Garcia MD Work Phone: [facility] 07-15-2024 12:12-0400 Body weight 75.[address] Mayda Garcia MD Work Phone: [facility] 07-14-2024 20:20-0400 Body temperature 97.9 [degF] Dr. Mayda Garcia MD Work Phone: [facility] 07-14-2024 20:20-0400 Diastolic blood pressure 80 mm[Hg] Dr. Mayda Garcia MD Work Phone: [facility] 07-14-2024 20:20-0400 Heart rate 85 /min Dr. Mayda Garcia MD Work Phone: [facility] 07-14-2024 20:20-0400 Respiratory rate 17 /min Dr. Mayda Garcia MD Work Phone: [facility] 07-14-2024 20:20-0400 SaO2% (BldA) [Mass fraction] 98 % Dr. Mayda Garcia MD Work Phone: [facility] 07-14-2024 20:20-0400 Systolic blood pressure 107 mm[Hg] Dr. Mayda Garcia MD Work Phone: [facility] 07-14-2024 16:18-0400 Body height 157.[address] Mayda Garcia MD Work Phone: [facility] 07-14-2024 16:18-0400 Body mass index (BMI) [Ratio] 30.7 kg/m2 Dr. Mayda Garcia MD Work Phone: [facility] 07-14-2024 16:18-0400 Body weight 76.[address] Mayda Garcia MD Work Phone: [facility] 07-05-2024 10:56-0500 Body mass index (BMI) [Ratio] 30.7 kg/m2 Dr. Mayda Garcia MD Work Phone: [facility] 07-05-2024 10:56-0500 Body temperature 98.6 [degF] Dr. Mayda Garcia MD Work Phone: [facility] 07-05-2024 10:56-0500 Body weight 76.[address] Mayda Garcia MD Work Phone: [facility] 07-05-2024 10:56-0500 Diastolic blood pressure 70 mm[Hg] Dr. Mayda Garcia MD Work Phone: [facility] 07-05-2024 10:56-0500 Heart rate 104 /min Dr. Mayda Garcia MD Work Phone: [facility] 07-05-2024 10:56-0500 Respiratory rate 17 /min Dr. Mayda Garcia MD Work Phone: [facility] 07-05-2024 10:56-0500 SaO2% (BldA) [Mass fraction] 98 % Dr. Mayda Garcia MD Work Phone: [facility] 07-05-2024 10:56-0500 Systolic blood pressure 130 mm[Hg] Dr. Mayda Garcia MD Work Phone: [facility] 05-20-2024 09:36-0500 Body mass index (BMI) [Ratio] 30.9 kg/m2 Dr. Mayda Garcia MD Work Phone: [facility] 05-20-2024 09:36-0500 Body temperature 97.6 [degF] Dr. Mayda Garcia MD Work Phone: [facility] 05-20-2024 09:36-0500 Body weight 76.[address] Mayda Garcia MD Work Phone: [facility] 05-20-2024 09:36-0500 Diastolic blood pressure 78 mm[Hg] Dr. Mayda Garcia MD Work Phone: [facility] 05-20-2024 09:36-0500 Heart rate 98 /min Dr. Mayda Garcia MD Work Phone: [facility] 05-20-2024 09:36-0500 Respiratory rate 16 /min Dr. Mayda Garcia MD Work Phone: [facility] 05-20-2024 09:36-0500 SaO2% (BldA) [Mass fraction] 99 % Dr. Mayda Garcia MD Work Phone: [facility] 05-20-2024 09:36-0500 Systolic blood pressure 142 mm[Hg] Dr. Mayda Garcia MD Work Phone: [facility] 05-16-2024 09:40-0500 Body mass index (BMI) [Ratio] 31.6 kg/m2 Dr. Mayda Garcia MD Work Phone: [facility] 05-16-2024 09:40-0500 Body temperature 98.4 [degF] Dr. Mayda Garcia MD Work Phone: [facility] 05-16-2024 09:40-0500 Body weight 78.[address] Mayda Garcia MD Work Phone: [facility] 05-16-2024 09:40-0500 Diastolic blood pressure 70 mm[Hg] Dr. Mayda Garcia MD Work Phone: [facility] 05-16-2024 09:40-0500 Heart rate 89 /min Dr. Mayda Garcia MD Work Phone: [facility] 05-16-2024 09:40-0500 Respiratory rate 16 /min Dr. Mayda Garcia MD Work Phone: [facility] 05-16-2024 09:40-0500 SaO2% (BldA) [Mass fraction] 99 % Dr. Mayda Garcia MD Work Phone: [facility] 05-16-2024 09:40-0500 Systolic blood pressure 116 mm[Hg] Dr. Mayda Garcia MD Work Phone: [facility] 04-21-2024 10:56-0500 Body mass index (BMI) [Ratio] 30.9 kg/m2 Dr. Mayda Garcia MD Work Phone: [facility] 04-21-2024 10:56-0500 Body temperature 98.4 [degF] Dr. Mayda Garcia MD Work Phone: [facility] 04-21-2024 10:56-0500 Body weight 76.[address] Mayda Garcia MD Work Phone: [facility] 04-21-2024 10:56-0500 Diastolic blood pressure 72 mm[Hg] Dr. Mayda Garcia MD Work Phone: [facility] 04-21-2024 10:56-0500 Heart rate 111 /min Dr. Mayda Garcia MD Work Phone: [facility] 04-21-2024 10:56-0500 Respiratory rate 17 /min Dr. Mayda Garcia MD Work Phone: [facility] 04-21-2024 10:56-0500 SaO2% (BldA) [Mass fraction] 97 % Dr. Mayda Garcia MD Work Phone: [facility] 04-21-2024 10:56-0500 Systolic blood pressure 130 mm[Hg] Dr. Mayda Garcia MD Work Phone: [facility] 04-20-2024 12:38-0500 Body weight 76.[address] Mayda Garcia MD Work Phone: [facility] 04-20-2024 12:38-0500 Heart rate 106 /min Dr. Mayda Garcia MD Work Phone: [facility] 04-20-2024 12:38-0500 SaO2% (BldA) [Mass fraction] 97 % Dr. Mayda Garcia MD Work Phone: [facility] 04-19-2024 10:25-0500 Body mass index (BMI) [Ratio] 30.9 kg/m2 Dr. Mayda Garcia MD Work Phone: [facility] 04-19-2024 10:25-0500 Body weight 76.[address] Mayda Garcia MD Work Phone: [facility] 04-19-2024 10:25-0500 Diastolic blood pressure 62 mm[Hg] Dr. Mayda Garcia MD Work Phone: [facility] 04-19-2024 10:25-0500 Heart rate 97 /min Dr. Mayda Garcia MD Work Phone: [facility] 04-19-2024 10:25-0500 Respiratory rate 16 /min Dr. Mayda Garcia MD Work Phone: [facility] 04-19-2024 10:25-0500 Systolic blood pressure 115 mm[Hg] Dr. Mayda Garcia MD Work Phone: [facility] 08-03-2023 00:11-0400 Body weight 75.[address] Mayda Garcia Work Phone: [facility] 07-29-2023 08:29-0400 Body height 157.[address] Mayda Garcia Work Phone: [facility] 07-29-2023 08:29-0400 Body weight 75.[address] Mayda Garcia Work Phone: [facility] 07-23-2023 10:50-0400 Body height 157.[address] Mayda Garcia Work Phone: [facility] 07-23-2023 10:50-0400 Body mass index (BMI) [Ratio] 30.2 kg/m2 Dr. Mayda Garcia Work Phone: [facility] 07-23-2023 10:50-0400 Body temperature 97.8 [degF] Dr. Mayda Garcia Work Phone: [facility] 07-23-2023 10:50-0400 Body weight 74.[address] Mayda Garcia Work Phone: [facility] 07-23-2023 10:50-0400 Diastolic blood pressure 76 mm[Hg] Dr. Mayda Garcia Work Phone: [facility] 07-23-2023 10:50-0400 Heart rate 96 /min Dr. Mayda Garcia Work Phone: [facility] 07-23-2023 10:50-0400 Respiratory rate 17 /min Dr. Mayda Garcia Work Phone: [facility] 07-23-2023 10:50-0400 SaO2% (BldA) [Mass fraction] 99 % Dr. Mayda Garcia Work Phone: [facility] 07-23-2023 10:50-0400 Systolic blood pressure 118 mm[Hg] Dr. Mayda Garcia Work Phone: [facility] 07-20-2023 13:17-0400 Body mass index (BMI) [Ratio] 30.9 kg/m2 Dr. Mayda Garcia Work Phone: [facility] 07-20-2023 13:17-0400 Body temperature 97.8 [degF] Dr. Mayda Garcia Work Phone: [facility] 07-20-2023 13:17-0400 Body weight 76.[address] Mayda Garcia Work Phone: [facility] 07-20-2023 13:17-0400 Diastolic blood pressure 68 mm[Hg] Dr. Mayda Garcia Work Phone: [facility] 07-20-2023 13:17-0400 Heart rate 88 /min Dr. Mayda Garcia Work Phone: [facility] 07-20-2023 13:17-0400 Respiratory rate 17 /min Dr. Mayda Garcia Work Phone: [facility] 07-20-2023 13:17-0400 SaO2% (BldA) [Mass fraction] 99 % Dr. Mayda Garcia Work Phone: [facility] 07-20-2023 13:17-0400 Systolic blood pressure 118 mm[Hg] Dr. Mayda Garcia Work Phone: [facility] 07-03-2023 00:06-0500 Body weight 73.[address] Mayda Garcia Work Phone: [facility] 07-01-2023 09:13-0500 Body height 157.[address] Mayda Garcia Work Phone: [facility] 07-01-2023 09:13-0500 Body weight 73.[address] Mayda Garcia Work Phone: [facility] 06-17-2023 10:16-0500 Body height 157.[address] Mayda Garcia Work Phone: [facility] 06-17-2023 10:16-0500 Body mass index (BMI) [Ratio] 28.8 kg/m2 Dr. Mayda Garcia Work Phone: [facility] 06-17-2023 10:16-0500 Body temperature 97.4 [degF] Dr. Mayda Garcia Work Phone: [facility] 06-17-2023 10:16-0500 Body weight 71.[address] Mayda Garcia Work Phone: [facility] 06-17-2023 10:16-0500 Diastolic blood pressure 82 mm[Hg] Dr. Mayda Garcia Work Phone: [facility] 06-17-2023 10:16-0500 Heart rate 93 /min Dr. Mayda Garcia Work Phone: [facility] 06-17-2023 10:16-0500 Respiratory rate 16 /min Dr. Mayda Garcia Work Phone: [facility] 06-17-2023 10:16-0500 SaO2% (BldA) [Mass fraction] 98 % Dr. Mayda Garcia Work Phone: [facility] 06-17-2023 10:16-0500 Systolic blood pressure 126 mm[Hg] Dr. Mayda Garcia Work Phone: [facility] 06-10-2023 07:48-0500 Body mass index (BMI) [Ratio] 29.4 kg/m2 Dr. Mayda Garcia Work Phone: [facility] 06-10-2023 07:48-0500 Body temperature 98 [degF] Dr. Mayda Garcia Work Phone: [facility] 06-10-2023 07:48-0500 Body weight 73.[address] Mayda Garcia Work Phone: [facility] 06-10-2023 07:48-0500 Diastolic blood pressure 90 mm[Hg] Dr. Mayda Garcia Work Phone: [facility] 06-10-2023 07:48-0500 Heart rate 79 /min Dr. Mayda Garcia Work Phone: [facility] 06-10-2023 07:48-0500 Respiratory rate 20 /min Dr. Mayda Garcia Work Phone: [facility] 06-10-2023 07:48-0500 SaO2% (BldA) [Mass fraction] 99 % Dr. Mayda Garcia Work Phone: [facility] 06-10-2023 07:48-0500 Systolic blood pressure 171 mm[Hg] Dr. Mayda Garcia Work Phone: [facility] 06-01-2023 10:05-0500 Body mass index (BMI) [Ratio] 29.8 kg/m2 Dr. Mayda Garcia Work Phone: [facility] 06-01-2023 10:05-0500 Body weight 73.[address] Mayda Garcia Work Phone: [facility] 06-01-2023 10:05-0500 Diastolic blood pressure 64 mm[Hg] Dr. Mayda Garcia Work Phone: [facility] 06-01-2023 10:05-0500 Systolic blood pressure 104 mm[Hg] Dr. Mayda Garcia Work Phone: [facility] 06-01-2023 09:57-0500 Heart rate 101 /min Dr. Mayda Garcia Work Phone: [facility] 06-01-2023 09:57-0500 SaO2% (BldA) [Mass fraction] 97 % Dr. Mayda Garcia Work Phone: [facility] 06-01-2023 09:50-0500 Body height 157.[address] Mayda Garcia Work Phone: [facility] 05-18-2023 10:38-0500 Body temperature 98 [degF] Dr. Mayda Garcia Work Phone: [facility] 05-18-2023 10:38-0500 Diastolic blood pressure 70 mm[Hg] Dr. Mayda Garcia Work Phone: [facility] 05-18-2023 10:38-0500 Heart rate 70 /min Dr. Mayda Garcia Work Phone: [facility] 05-18-2023 10:38-0500 Respiratory rate 15 /min Dr. Mayda Garcia Work Phone: [facility] 05-18-2023 10:38-0500 SaO2% (BldA) [Mass fraction] 98 % Dr. Mayda Garcia Work Phone: [facility] 05-18-2023 10:38-0500 Systolic blood pressure 120 mm[Hg] Dr. Mayda Garcia Work Phone: [facility] 04-16-2023 11:43-0500 Body temperature 97.7 [degF] Dr. Myada Garcia Work Phone: [facility] 04-16-2023 11:43-0500 Body weight 75.[address] Mayda Garcia Work Phone: [facility] 04-16-2023 11:43-0500 Diastolic blood pressure 70 mm[Hg] Dr. Mayda Garcia Work Phone: [facility] 04-16-2023 11:43-0500 Heart rate 99 /min Dr. Mayda Garcia Work Phone: [facility] 04-16-2023 11:43-0500 Respiratory rate 16 /min Dr. Mayda Garcia Work Phone: [facility] 04-16-2023 11:43-0500 SaO2% (BldA) [Mass fraction] 99 % Dr. Mayda Garcia Work Phone: [facility] 04-16-2023 11:43-0500 Systolic blood pressure 130 mm[Hg] Dr. Mayda Garcia Work Phone: [facility] 03-19-2023 09:50-0500 Body height 157.[address] Mayda Garcia Work Phone: [facility] 03-19-2023 09:50-0500 Body mass index (BMI) [Ratio] 29.8 kg/m2 Dr. Mayda Garcia Work Phone: [facility] 03-19-2023 09:50-0500 Body weight 73.[address] Mayda Garcia Work Phone: [facility] 03-19-2023 09:50-0500 Diastolic blood pressure 60 mm[Hg] Dr. Mayda Garcia Work Phone: [facility] 03-19-2023 09:50-0500 Heart rate 92 /min Dr. Mayda Garcia Work Phone: [facility] 03-19-2023 09:50-0500 Respiratory rate 16 /min Dr. Mayda Garcia Work Phone: [facility] 03-19-2023 09:50-0500 Systolic blood pressure 98 mm[Hg] Dr. Mayda Garcia Work Phone: [facility] 03-16-2023 14:11-0500 Body mass index (BMI) [Ratio] 30.4 kg/m2 Dr. Mayda Garcia Work Phone: [facility] 03-16-2023 [id number] Body temperature 97.1 [degF] Dr. Mayda Garcia Work Phone: [facility] 03-16-2023 14:11-0500 Body weight 75.[address] Mayda Garcia Work Phone: [facility] 03-16-2023 14:11-0500 Diastolic blood pressure 62 mm[Hg] Dr. Mayda Garcia Work Phone: [facility] 03-16-2023 14:11-0500 Heart rate 102 /min Dr. Mayda Garcia Work Phone: [facility] 03-16-2023 14:11-0500 Respiratory rate 15 /min Dr. Mayda Garcia Work Phone: [facility] 03-16-2023 14:11-0500 SaO2% (BldA) [Mass fraction] 97 % Dr. Mayda Garcia Work Phone: [facility] 03-16-2023 14:11-0500 Systolic blood pressure 118 mm[Hg] Dr. Mayda Garcia Work Phone: [facility] 03-16-2023 13:21-0500 Body mass index (BMI) [Ratio] 30.5 kg/m2 Dr. Mayda Garcia Work Phone: [facility] 03-16-2023 13:21-0500 Body temperature 98.2 [degF] Dr. Mayda Garcia Work Phone: [facility] 03-16-2023 13:21-0500 Body weight 75.[address] Mayda Garcia Work Phone: [facility] 03-16-2023 13:21-0500 Diastolic blood pressure 63 mm[Hg] Dr. Mayda Garcia Work Phone: [facility] 03-16-2023 13:21-0500 Heart rate 82 /min Dr. Mayda Garcia Work Phone: [facility] 03-16-2023 13:21-0500 Respiratory rate 14 /min Dr. Mayda Garcia Work Phone: [facility] 03-16-2023 13:21-0500 SaO2% (BldA) [Mass fraction] 99 % Dr. Mayda Garcia Work Phone: [facility] 03-16-2023 13:21-0500 Systolic blood pressure 120 mm[Hg] Dr. Mayda Garcia Work Phone: [facility] 02-18-2023 10:07-0400 Body height 157.[address] Mayda Garcia Work Phone: [facility] 02-18-2023 10:07-0400 Body mass index (BMI) [Ratio] 30.5 kg/m2 Dr. Mayda Garcia Work Phone: [facility] 02-18-2023 10:07-0400 Body weight 75.[address] Mayda Garcia Work Phone: [facility] 02-18-2023 10:07-0400 Diastolic blood pressure 76 mm[Hg] Dr. Mayda Garcia Work Phone: [facility] 02-18-2023 10:07-0400 Heart rate 103 /min Dr. Mayda Garcia Work Phone: [facility] 02-18-2023 10:07-0400 Respiratory rate 18 /min Dr. Mayda Garcia Work Phone: [facility] 02-18-2023 10:07-0400 Systolic blood pressure 114 mm[Hg] Dr. Mayda Garcia Work Phone: [facility] 02-11-2023 11:01-0400 Body mass index (BMI) [Ratio] 29.5 kg/m2 Dr. Mayda Garcia Work Phone: [facility] 02-11-2023 11:01-0400 Body temperature 98.4 [degF] Dr. Mayda Garcia Work Phone: [facility] 02-11-2023 11:01-0400 Body weight 73.[address] Mayda Garcia Work Phone: [facility] 02-11-2023 11:01-0400 Diastolic blood pressure 70 mm[Hg] Dr. Mayda Garcia Work Phone: [facility] 02-11-2023 11:01-0400 Heart rate 90 /min Dr. Mayda Garcia Work Phone: [facility] 02-11-2023 11:01-0400 Respiratory rate 17 /min Dr. Mayda Garcia Work Phone: [facility] 02-11-2023 11:01-0400 SaO2% (BldA) [Mass fraction] 96 % Dr. Mayda Garcia Work Phone: [facility] 02-11-2023 11:01-0400 Systolic blood pressure 110 mm[Hg] Dr. Mayda Garcia Work Phone: [facility] 02-04-2023 10:53-0400 Body mass index (BMI) [Ratio] 30.5 kg/m2 Dr. Mayda Garcia Work Phone: [facility] 02-04-2023 10:53-0400 Body temperature 97.6 [degF] Dr. Mayda Garcia Work Phone: [facility] 02-04-2023 10:53-0400 Body weight 75.[address] Mayda Garcia Work Phone: [facility] 02-04-2023 10:53-0400 Diastolic blood pressure 80 mm[Hg] Dr. Mayda Garcia Work Phone: [facility] 02-04-2023 10:53-0400 Heart rate 91 /min Dr. Mayda Garcia Work Phone: [facility] 02-04-2023 10:53-0400 Respiratory rate 16 /min Dr. Mayda Garcia Work Phone: [facility] 02-04-2023 10:53-0400 SaO2% (BldA) [Mass fraction] 98 % Dr. Mayda Garcia Work Phone: [facility] 02-04-2023 10:53-0400 Systolic blood pressure 124 mm[Hg] Dr. Mayda Garcia Work Phone: [facility] 01-26-2023 11:37-0400 Body temperature 98.3 [degF] Dr. Mayda Garcia Work Phone: [facility] 01-26-2023 11:37-0400 Diastolic blood pressure 67 mm[Hg] Dr. Mayda Garcia Work Phone: [facility] 01-26-2023 11:37-0400 Heart rate 86 /min Dr. Mayda Garcia Work Phone: [facility] 01-26-2023 11:37-0400 Respiratory rate 18 /min Dr. Mayda Garcia Work Phone: [facility] 01-26-2023 11:37-0400 SaO2% (BldA) [Mass fraction] 98 % Dr. Mayda Garcia Work Phone: [facility] 01-26-2023 11:37-0400 Systolic blood pressure 107 mm[Hg] Dr. Mayda Garcia Work Phone: [facility] 01-24-2023 06:00-0400 Body mass index (BMI) [Ratio] 31.3 kg/m2 Dr. Madya Garcia Work Phone: [facility] 01-24-2023 06:00-0400 Body weight 77.[address] Mayda Garcia Work Phone: [facility] 01-22-2023 06:03-0400 Inhaled oxygen flow rate 2 L/min Dr. Mayda Garcia Work Phone: [facility] 01-21-2023 16:06-0400 Body height 157.[address] Mayda Garcia Work Phone: [facility] 01-11-2023 07:00-0400 Body temperature 98.29 [degF] Azam Rose MD Work Phone: [facility] 01-11-2023 07:00-0400 Diastolic blood pressure 62 mm[Hg] Azam Rose MD Work Phone: [facility] 01-11-2023 07:00-0400 Heart rate 81 /min Azam Rose MD Work Phone: [facility] 01-11-2023 07:00-0400 Respiratory rate 16 /min Azam Rose MD Work Phone: [facility] 01-11-2023 07:00-0400 SaO2% (BldA) [Mass fraction] 96 % Azam Rose MD Work Phone: [facility] 01-11-2023 07:00-0400 Systolic blood pressure 112 mm[Hg] Azam Rose MD Work Phone: [facility] 01-11-2023 04:43-0400 Body mass index (BMI) [Ratio] 31.21 kg/m2 Azam Rose MD Work Phone: [facility] 01-11-2023 04:43-0400 Body weight 77.4 kg Azam Rose MD Work Phone: [facility] 01-02-2023 08:47-0400 Body height 157.5 cm Azam Rose MD Work Phone: [facility] 01-01-2023 10:48-0400 SaO2% (BldA) [Mass fraction] 99.2 % Azam Rose MD Work Phone: [facility] 12-23-2022 10:18-0400 Body height 157.5 cm Azam Rose MD Work Phone: [facility] 12-23-2022 10:18-0400 Body mass index (BMI) [Ratio] 31.17 kg/m2 Azam Rose MD Work Phone: [facility] 12-23-2022 10:18-0400 Body weight 77.29 kg Azam Rose MD Work Phone: [facility] 12-23-2022 10:18-0400 Diastolic blood pressure 78 mm[Hg] Azam Rose MD Work Phone: [facility] 12-23-2022 10:18-0400 Heart rate 91 /min Azam Rose MD Work Phone: [facility] 12-23-2022 10:18-0400 Systolic blood pressure 140 mm[Hg] Azam Rose MD Work Phone: [facility] 12-19-2022 14:00-0400 Body temperature 97.2 [degF] Dr. Mayda aGrcia Work Phone: [facility] 12-19-2022 14:00-0400 Diastolic blood pressure 69 mm[Hg] Dr. Mayda Garcia Work Phone: [facility] 12-19-2022 14:00-0400 Heart rate 92 /min Dr. Mayda Garcia Work Phone: [facility] 12-19-2022 14:00-0400 Respiratory rate 18 /min Dr. Mayda Garcia Work Phone: [facility] 12-19-2022 14:00-0400 SaO2% (BldA) [Mass fraction] 100 % Dr. Mayda Garcia Work Phone: [facility] 12-19-2022 14:00-0400 Systolic blood pressure 140 mm[Hg] Dr. Mayda Garcia Work Phone: [facility] 12-18-2022 10:26-0400 Body height 157.[address] Mayda Garcia Work Phone: [facility] 12-18-2022 10:26-0400 Body mass index (BMI) [Ratio] 31.4 kg/m2 Dr. Mayda Garcia Work Phone: [facility] 12-18-2022 10:26-0400 Body weight 77.[address] Mayda Garcia Work Phone: [facility] 12-18-2022 10:00-0400 Respiratory rate 18 /min Dr. Mayda Garcia Work Phone: [facility] 12-18-2022 09:15-0400 Body temperature 98.1 [degF] Dr. Mayda Garcia Work Phone: [facility] 12-18-2022 09:15-0400 Diastolic blood pressure 72 mm[Hg] Dr. Mayda Garcia Work Phone: [facility] 12-18-2022 09:15-0400 Heart rate 74 /min Dr. Mayda Garcia Work Phone: [facility] 12-18-2022 09:15-0400 SaO2% (BldA) [Mass fraction] 95 % Dr. Mayda Garcia Work Phone: [facility] 12-18-2022 09:15-0400 Systolic blood pressure 148 mm[Hg] Dr. Mayda Garcia Work Phone: [facility] 12-18-2022 05:23-0400 Body height 187.[address] Mayda Garcia Work Phone: [facility] 12-18-2022 05:23-0400 Body mass index (BMI) [Ratio] 22.4 kg/m2 Dr. Mayda Garcia Work Phone: [facility] 12-18-2022 05:23-0400 Body weight 79.[address] Mayda Garcia Work Phone: [facility] 12-11-2022 14:43-0400 Body mass index (BMI) [Ratio] 30.9 kg/m2 Dr. Mayda Garcia Work Phone: [facility] 12-11-2022 14:43-0400 Body temperature 98.3 [degF] Dr. Mayda Garcia Work Phone: [facility] 12-11-2022 14:43-0400 Body weight 76.[address] Mayda Garcia Work Phone: [facility] 12-11-2022 14:43-0400 Diastolic blood pressure 76 mm[Hg] Dr. Mayda Garcia Work Phone: [facility] 12-11-2022 14:43-0400 Heart rate 97 /min Dr. Mayda Garcia Work Phone: [facility] 12-11-2022 14:43-0400 Respiratory rate 16 /min Dr. Mayda Garcia Work Phone: [facility] 12-11-2022 14:43-0400 SaO2% (BldA) [Mass fraction] 97 % Dr. Mayda Garcia Work Phone: [facility] 12-11-2022 14:43-0400 Systolic blood pressure 124 mm[Hg] Dr. Mayda Garcia Work Phone: [facility] 11-19-2022 14:56-0400 Body mass index (BMI) [Ratio] 31.7 kg/m2 Dr. Mayda Garcia Work Phone: [facility] 11-19-2022 14:56-0400 Body temperature 97.7 [degF] Dr. Mayda Garcia Work Phone: [facility] 11-19-2022 14:56-0400 Body weight 78.[address] Mayda Garcia Work Phone: [facility] 11-19-2022 14:56-0400 Diastolic blood pressure 78 mm[Hg] Dr. Mayda Garcia Work Phone: [facility] 11-19-2022 14:56-0400 Heart rate 90 /min Dr. Mayda Garcia Work Phone: [facility] 11-19-2022 14:56-0400 Respiratory rate 14 /min Dr. Mayda Garcia Work Phone: [facility] 11-19-2022 14:56-0400 SaO2% (BldA) [Mass fraction] 98 % Dr. Mayda Garcia Work Phone: [facility] 11-19-2022 14:56-0400 Systolic blood pressure 130 mm[Hg] Dr. Mayda Garcia Work Phone: [facility] 10-10-2022 11:04-0400 Body height 157.[address] Mayda Garcia Work Phone: [facility] 10-10-2022 11:04-0400 Body mass index (BMI) [Ratio] 31.4 kg/m2 Dr. Mayda Garcia Work Phone: [facility] 10-10-2022 11:04-0400 Body weight 78.[address] Mayda Garcia Work Phone: [facility] 10-03-2022 10:42-0400 Body height 157.[address] Mayda Garcia Work Phone: [facility] 10-03-2022 10:42-0400 Body mass index (BMI) [Ratio] 31.7 kg/m2 Dr. Mayda Garcia Work Phone: [facility] 10-03-2022 10:42-0400 Body temperature 97.1 [degF] Dr. Mayda Garcia Work Phone: [facility] 10-03-2022 10:42-0400 Body weight 78.[address] Mayda Garcia Work Phone: [facility] 10-03-2022 10:42-0400 Diastolic blood pressure 84 mm[Hg] Dr. Mayda Garcia Work Phone: [facility] 10-03-2022 10:42-0400 Heart rate 112 /min Dr. Mayda Garcia Work Phone: [facility] 10-03-2022 10:42-0400 Respiratory rate 18 /min Dr. Mayda Garcia Work Phone: [facility] 10-03-2022 10:42-0400 SaO2% (BldA) [Mass fraction] 98 % Dr. Mayda Garcia Work Phone: [facility] 10-03-2022 10:42-0400 Systolic blood pressure 138 mm[Hg] Dr. Mayda Garcia Work Phone: [facility] 10-02-2022 11:41-0400 Body mass index (BMI) [Ratio] 31.5 kg/m2 Dr. Mayda Garcia Work Phone: [facility] 10-02-2022 11:41-0400 Body temperature 98 [degF] Dr. Mayda Garcia Work Phone: [facility] 10-02-2022 11:41-0400 Body weight 78.[address] Mayda Garcia Work Phone: [facility] 10-02-2022 11:41-0400 Diastolic blood pressure 60 mm[Hg] Dr. Mayda Garcia Work Phone: [facility] 10-02-2022 11:41-0400 Heart rate 91 /min Dr. Mayda Garcia Work Phone: [facility] 10-02-2022 11:41-0400 Respiratory rate 17 /min Dr. Mayda Garcia Work Phone: [facility] 10-02-2022 11:41-0400 SaO2% (BldA) [Mass fraction] 97 % Dr. Mayda Garcia Work Phone: [facility] 10-02-2022 11:41-0400 Systolic blood pressure 118 mm[Hg] Dr. Mayda Garcia Work Phone: [facility] 08-22-2022 15:19-0400 Body mass index (BMI) [Ratio] 32.1 kg/m2 Dr. Mayda Garcia Work Phone: [facility] 08-22-2022 15:19-0400 Body temperature 98 [degF] Dr. Mayda Garcia Work Phone: [facility] 08-22-2022 15:19-0400 Body weight 79.[address] Mayda Garcia Work Phone: [facility] 08-22-2022 15:19-0400 Diastolic blood pressure 72 mm[Hg] Dr. Mayda Garcia Work Phone: [facility] 08-22-2022 15:19-0400 Heart rate 89 /min Dr. Mayda Garcia Work Phone: [facility] 08-22-2022 15:19-0400 Respiratory rate 16 /min Dr. Mayda Garcia Work Phone: [facility] 08-22-2022 15:19-0400 SaO2% (BldA) [Mass fraction] 97 % Dr. Mayda Garcia Work Phone: [facility] 08-22-2022 15:19-0400 Systolic blood pressure 130 mm[Hg] Dr. Mayda Garcia Work Phone: [facility] 08-14-2022 01:11-0400 Diastolic blood pressure 81 mm[Hg] Dr. Mayda Garcia Work Phone: [facility] 08-14-2022 01:11-0400 Heart rate 87 /min Dr. Mayda Garcia Work Phone: [facility] 08-14-2022 01:11-0400 Respiratory rate 17 /min Dr. Mayda Garcia Work Phone: [facility] 08-14-2022 01:11-0400 SaO2% (BldA) [Mass fraction] 100 % Dr. Mayda Garcia Work Phone: [facility] 08-14-2022 01:11-0400 Systolic blood pressure 163 mm[Hg] Dr. Mayda Garcia Work Phone: [facility] 08-13-2022 21:57-0400 Body height 157.[address] Mayda Garcia Work Phone: [facility] 08-13-2022 21:57-0400 Body mass index (BMI) [Ratio] 35.2 kg/m2 Dr. Mayda Garcia Work Phone: [facility] 08-13-2022 21:57-0400 Body temperature 98.2 [degF] Dr. Mayda Garcia Work Phone: [facility] 08-13-2022 21:57-0400 Body weight 87.[address] Mayda Garcia Work Phone: [facility] 06-30-2022 10:56-0500 Body mass index (BMI) [Ratio] 32.1 kg/m2 Dr. Mayda Garcia Work Phone: [facility] 06-30-2022 10:56-0500 Body temperature 98.8 [degF] Dr. Mayda Garcia Work Phone: [facility] 06-30-2022 10:56-0500 Body weight 79.[address] Mayda Garcia Work Phone: [facility] 06-30-2022 10:56-0500 Diastolic blood pressure 80 mm[Hg] Dr. Mayda Garcia Work Phone: [facility] 06-30-2022 10:56-0500 Heart rate 87 /min Dr. Mayda Garcia Work Phone: [facility] 06-30-2022 10:56-0500 Respiratory rate 16 /min Dr. Mayda Garcia Work Phone: [facility] 06-30-2022 10:56-0500 SaO2% (BldA) [Mass fraction] 99 % Dr. Mayda Garcia Work Phone: [facility] 06-30-2022 10:56-0500 Systolic blood pressure 128 mm[Hg] Dr. Mayda Garcia Work Phone: [facility] 06-09-2022 13:30-0500 Body mass index (BMI) [Ratio] 35.6 kg/m2 Dr. Mayda Garcia Work Phone: [facility] 06-09-2022 13:30-0500 Body temperature 98.5 [degF] Dr. Mayda Garcia Work Phone: [facility] 06-09-2022 13:30-0500 Body weight 88.[address] Mayda Garcia Work Phone: [facility] 06-09-2022 13:30-0500 Diastolic blood pressure 74 mm[Hg] Dr. Mayda Garcia Work Phone: [facility] 06-09-2022 13:30-0500 Heart rate 102 /min Dr. Mayda Garcia Work Phone: [facility] 06-09-2022 13:30-0500 Respiratory rate 16 /min Dr. Mayda Garcia Work Phone: [facility] 06-09-2022 13:30-0500 SaO2% (BldA) [Mass fraction] 96 % Dr. Mayda Garcia Work Phone: [facility] 06-09-2022 13:30-0500 Systolic blood pressure 136 mm[Hg] Dr. Mayda Garcia Work Phone: [facility] 06-07-2022 17:41-0500 Body height 157.[address] Mayda Garcia Work Phone: [facility] 06-07-2022 17:41-0500 Body mass index (BMI) [Ratio] 35.6 kg/m2 Dr. Mayda Garcia Work Phone: [facility] 06-07-2022 17:41-0500 Body temperature 97.9 [degF] Dr. Mayda Garcia Work Phone: [facility] 06-07-2022 17:41-0500 Body weight 88.[address] Mayda Garcia Work Phone: [facility] 06-07-2022 17:41-0500 Diastolic blood pressure 85 mm[Hg] Dr. Mayda Garcia Work Phone: [facility] 06-07-2022 17:41-0500 Heart rate 90 /min Dr. Mayda Garcia Work Phone: [facility] 06-07-2022 17:41-0500 Respiratory rate 18 /min Dr. Mayda Garcia Work Phone: [facility] 06-07-2022 17:41-0500 SaO2% (BldA) [Mass fraction] 100 % Dr. Mayda Garcia Work Phone: [facility] 06-07-2022 17:41-0500 Systolic blood pressure 180 mm[Hg] Dr. Mayda Garcia Work Phone: [facility] 06-06-2022 14:05-0500 Respiratory rate 18 /min Dr. Mayda Garcia Work Phone: [facility] 06-06-2022 13:04-0500 Diastolic blood pressure 70 mm[Hg] Dr. Mayda Garcia Work Phone: [facility] 06-06-2022 13:04-0500 Heart rate 79 /min Dr. Mayda Garcia Work Phone: [facility] 06-06-2022 13:04-0500 Systolic blood pressure 133 mm[Hg] Dr. Mayda Garcia Work Phone: [facility] 06-06-2022 12:27-0500 SaO2% (BldA) [Mass fraction] 98 % Dr. Mayda Garcia Work Phone: [facility] 06-06-2022 09:11-0500 Body mass index (BMI) [Ratio] 33.7 kg/m2 Dr. Mayda Garcia Work Phone: [facility] 06-06-2022 09:11-0500 Body temperature 98.1 [degF] Dr. Mayda Garcia Work Phone: [facility] 06-06-2022 09:11-0500 Body weight 83.[address] Mayda Garcia Work Phone: [facility] 05-06-2022 13:32-0500 Body temperature 96.2 [degF] Dr. Mayda Garcia Work Phone: [facility] 05-06-2022 13:32-0500 Body weight 80.[address] Mayda Garcia Work Phone: [facility] 05-06-2022 13:32-0500 Diastolic blood pressure 66 mm[Hg] Dr. Mayda Garcia Work Phone: [facility] 05-06-2022 13:32-0500 Heart rate 89 /min Dr. Mayda Garcia Work Phone: [facility] 05-06-2022 13:32-0500 Respiratory rate 16 /min Dr. Mayda Garcia Work Phone: [facility] 05-06-2022 13:32-0500 SaO2% (BldA) [Mass fraction] 96 % Dr. Mayda Garcia Work Phone: [facility] 05-06-2022 13:32-0500 Systolic blood pressure 136 mm[Hg] Dr. Mayda Garcia Work Phone: [facility] 04-02-2022 11:18-0500 Body height 157.[address] Mayda Garcia Work Phone: [facility] 04-02-2022 11:18-0500 Body mass index (BMI) [Ratio] 32 kg/m2 Dr. Mayda Garcia Work Phone: [facility] 04-02-2022 11:18-0500 Body temperature 98.5 [degF] Dr. Mayda Garcia Work Phone: [facility] 04-02-2022 11:18-0500 Body weight 79.[address] Mayda Garcia Work Phone: [facility] 04-02-2022 11:18-0500 Diastolic blood pressure 64 mm[Hg] Dr. Mayda Garcia Work Phone: [facility] 04-02-2022 11:18-0500 Heart rate 100 /min Dr. Mayda Garcia Work Phone: [facility] 04-02-2022 11:18-0500 Respiratory rate 14 /min Dr. Mayda Garcia Work Phone: [facility] 04-02-2022 11:18-0500 SaO2% (BldA) [Mass fraction] 99 % Dr. Mayda Garcia Work Phone: [facility] [facility] 11:18-0500 Systolic blood pressure 104 mm[Hg] Dr. Mayda Garcia Work Phone: [facility] 03-29-2022 10:32-0500 Body height 157.[address] Mayda Garcia Work Phone: [facility] Work Phone: 03-29-2022 10:32-0500 Body mass index (BMI) [Ratio] 32.8 kg/m2 Dr. Mayda Garcia Work Phone: [facility] 03-29-2022 10:32-0500 Body temperature 96 [degF] Dr. Mayda Garcia Work Phone: [facility] 03-29-2022 10:32-0500 Body weight 81.[address] Mayda Garcia Work Phone: [facility] 03-29-2022 10:32-0500 Diastolic blood pressure 93 mm[Hg] Dr. Mayda Garcia Work Phone: [facility] 03-29-2022 10:32-0500 Heart rate 88 /min Dr. Mayda Garcia Work Phone: [facility] 03-29-2022 10:32-0500 Respiratory rate 18 /min Dr. Mayda Garcia Work Phone: [facility] 03-29-2022 10:32-0500 SaO2% (BldA) [Mass fraction] 100 % Dr. Mayda Garcia Work Phone: [facility] 03-29-2022 10:32-0500 Systolic blood pressure 151 mm[Hg] Dr. Mayda Garcia Work Phone: [facility] 03-14-2022 20:13-0500 Diastolic blood pressure 85 mm[Hg] Dr. Mayda Garcia Work Phone: [facility] 03-14-2022 20:13-0500 Heart rate 93 /min Dr. Mayda Garcia Work Phone: [facility] 03-14-2022 20:13-0500 Respiratory rate 18 /min Dr. Mayda Garcia Work Phone: [facility] 03-14-2022 20:13-0500 SaO2% (BldA) [Mass fraction] 98 % Dr. Mayda Garcia Work Phone: [facility] 03-14-2022 20:13-0500 Systolic blood pressure 150 mm[Hg] Dr. Mayda Garcia Work Phone: [facility] 03-14-2022 16:12-0500 Body height 157.[address] Mayda Garcia Work Phone: [facility] Work Phone: 03-14-2022 16:12-0500 Body mass index (BMI) [Ratio] 33 kg/m2 Dr. Mayda Garcia Work Phone: [facility] 03-14-2022 16:12-0500 Body temperature 97.1 [degF] Dr. Mayda Garcia Work Phone: [facility] 03-14-2022 16:12-0500 Body weight 81.[address] Mayda Garcia Work Phone: [facility] 03-10-2022 10:13-0500 Body mass index (BMI) [Ratio] 33.3 kg/m2 Dr. Mayda Garcia Work Phone: [facility] 03-10-2022 10:13-0500 Body temperature 98.2 [degF] Dr. Mayda Garcia Work Phone: [facility] 03-10-2022 10:13-0500 Body weight 82.[address] Mayda Garcia Work Phone: [facility] 03-10-2022 10:13-0500 Diastolic blood pressure 76 mm[Hg] Dr. Mayda Garcia Work Phone: [facility] 03-10-2022 10:13-0500 Heart rate 94 /min Dr. Mayda Garcia Work Phone: [facility] 03-10-2022 10:13-0500 Respiratory rate 18 /min Dr. Mayda Garcia Work Phone: [facility] 03-10-2022 10:13-0500 SaO2% (BldA) [Mass fraction] 96 % Dr. Mayda Garcia Work Phone: [facility] 03-10-2022 10:13-0500 Systolic blood pressure 118 mm[Hg] Dr. Mayda Garcia Work Phone: [facility] 01-14-2022 12:21-0400 Body height 157.[address] Mayda Garcia Work Phone: [facility] Work Phone: 01-14-2022 12:21-0400 Body mass index (BMI) [Ratio] 31.6 kg/m2 Dr. Mayda Garcia Work Phone: [facility] Work Phone: 01-14-2022 12:21-0400 Body weight 78.[address] Mayda Garcia Work Phone: [facility] Work Phone: 01-14-2022 12:21-0400 Diastolic blood pressure 80 mm[Hg] Dr. Mayda Garcia Work Phone: [facility] Work Phone: 01-14-2022 12:21-0400 Heart rate 102 /min Dr. Mayda Garcia Work Phone: [facility] Work Phone: 01-14-2022 12:21-0400 Respiratory rate 16 /min Dr. Mayda Garcia Work Phone: [facility] Work Phone: 01-14-2022 12:21-0400 SaO2% (BldA) [Mass fraction] 98 % Dr. Mayda Garcia Work Phone: [facility] Work Phone: 01-14-2022 12:21-0400 Systolic blood pressure 130 mm[Hg] Dr. Mayda Garcia Work Phone: [facility] Work Phone: 01-10-2022 09:51-0400 Body mass index (BMI) [Ratio] 32.1 kg/m2 Dr. Mayda Garcia Work Phone: [facility] Work Phone: 01-10-2022 09:51-0400 Body temperature 97 [degF] Dr. Mayda Garcia Work Phone: [facility] Work Phone: 01-10-2022 09:51-0400 Body weight 79.[address] Mayda Garcia Work Phone: [facility] Work Phone: 01-10-2022 09:51-0400 Diastolic blood pressure 78 mm[Hg] Dr. Mayda Garcia Work Phone: [facility] Work Phone: 01-10-2022 09:51-0400 Heart rate 80 /min Dr. Mayda Garcia Work Phone: [facility] Work Phone: 01-10-2022 09:51-0400 Respiratory rate 16 /min Dr. Mayda Garcia Work Phone: [facility] Work Phone: 01-10-2022 09:51-0400 SaO2% (BldA) [Mass fraction] 98 % Dr. Mayda Garcia Work Phone: [facility] Work Phone: 01-10-2022 09:51-0400 Systolic blood pressure 100 mm[Hg] Dr. Mayda Garcia Work Phone: [facility] Work Phone: 01-03-2022 13:14-0400 Body temperature 97.3 [degF] Dr. Mayda Garcia Work Phone: [facility] Work Phone: 01-03-2022 13:14-0400 Diastolic blood pressure 77 mm[Hg] Dr. Mayda Garcia Work Phone: [facility] Work Phone: 01-03-2022 13:14-0400 Heart rate 77 /min Dr. Mayda Garcia Work Phone: [facility] Work Phone: 01-03-2022 13:14-0400 Respiratory rate 18 /min Dr. Mayda Garcia Work Phone: [facility] Work Phone: 01-03-2022 13:14-0400 SaO2% (BldA) [Mass fraction] 99 % Dr. Mayda Garcia Work Phone: [facility] Work Phone: 01-03-2022 13:14-0400 Systolic blood pressure 123 mm[Hg] Dr. Mayda Garcia Work Phone: [facility] Work Phone: 01-03-2022 06:00-0400 Body weight 81.[address] Mayda Garcia Work Phone: [facility] Work Phone: 01-02-2022 12:50-0400 Body height 157.[address] Mayda Garcia Work Phone: [facility] Work Phone: 01-02-2022 12:50-0400 Body mass index (BMI) [Ratio] 32.7 kg/m2 Dr. Mayda Garcia Work Phone: [facility] Work Phone: 12-23-2021 15:00-0400 Body mass index (BMI) [Ratio] 30.4 kg/m2 Dr. Mayda Garcia Work Phone: [facility] Work Phone: 12-23-2021 15:00-0400 Body temperature 98.7 [degF] Dr. Mayda Garcia Work Phone: [facility] Work Phone: 12-23-2021 15:00-0400 Body weight 80.[address] Mayda Garcia Work Phone: [facility] Work Phone: 12-23-2021 15:00-0400 Diastolic blood pressure 64 mm[Hg] Dr. Mayda Garcia Work Phone: [facility] Work Phone: 12-23-2021 15:00-0400 Heart rate 92 /min Dr. Mayda Garcia Work Phone: [facility] Work Phone: 12-23-2021 15:00-0400 Respiratory rate 18 /min Dr. Mayda Garcia Work Phone: [facility] Work Phone: 12-23-2021 15:00-0400 SaO2% (BldA) [Mass fraction] 97 % Dr. Mayda Garcia Work Phone: [facility] Work Phone: 12-23-2021 15:00-0400 Systolic blood pressure 140 mm[Hg] Dr. Mayda Garcia Work Phone: [facility] Work Phone: 12-17-2021 05:21-0400 Diastolic blood pressure 62 mm[Hg] Dr. Mayda Garcia Work Phone: [facility] Work Phone: 12-17-2021 05:21-0400 Heart rate 97 /min Dr. Mayda Garcia Work Phone: [facility] Work Phone: 12-17-2021 05:21-0400 Respiratory rate 18 /min Dr. Mayda Garcia Work Phone: [facility] Work Phone: 12-17-2021 05:21-0400 SaO2% (BldA) [Mass fraction] 98 % Dr. Mayda Garcia Work Phone: [facility] Work Phone: 12-17-2021 05:21-0400 Systolic blood pressure 154 mm[Hg] Dr. Mayda Garcia Work Phone: [facility] Work Phone: 12-17-2021 03:52-0400 Body height 162.[address] Mayda Garcia Work Phone: [facility] Work Phone: 12-17-2021 03:52-0400 Body mass index (BMI) [Ratio] 31 kg/m2 Dr. Mayda Garcia Work Phone: [facility] Work Phone: 12-17-2021 03:52-0400 Body temperature 97.8 [degF] Dr. Mayda Garcia Work Phone: [facility] Work Phone: 12-17-2021 03:52-0400 Body weight 82.[address] Mayda Garcia Work Phone: [facility] Work Phone: 11-28-2021 19:34-0400 Body height 187.[address] Mayda Garcia Work Phone: [facility] Work Phone: 11-28-2021 19:34-0400 Body mass index (BMI) [Ratio] 22.4 kg/m2 Dr. Mayda Garcia Work Phone: [facility] Work Phone: 11-28-2021 19:34-0400 Body temperature 98.6 [degF] Dr. Mayda Garcia Work Phone: [facility] Work Phone: 11-28-2021 19:34-0400 Body weight 79.[address] Mayda Garcia Work Phone: [facility] Work Phone: 11-28-2021 19:34-0400 Diastolic blood pressure 74 mm[Hg] Dr. Mayda Garcia Work Phone: [facility] Work Phone: 11-28-2021 19:34-0400 Heart rate 109 /min Dr. Mayda Garcia Work Phone: [facility] Work Phone: 11-28-2021 19:34-0400 Respiratory rate 18 /min Dr. Mayda Garcia Work Phone: [facility] Work Phone: 11-28-2021 19:34-0400 SaO2% (BldA) [Mass fraction] 99 % Dr. Mayda Garcia Work Phone: [facility] Work Phone: 11-28-2021 19:34-0400 Systolic blood pressure 167 mm[Hg] Dr. Mayda Garcia Work Phone: [facility] Work Phone: 11-06-2021 16:11-0400 Body mass index (BMI) [Ratio] 32.5 kg/m2 Dr. Mayda Garcia Work Phone: [facility] Work Phone: 11-06-2021 16:11-0400 Body temperature 98.4 [degF] Dr. Mayda Garcia Work Phone: [facility] Work Phone: 11-06-2021 16:11-0400 Body weight 80.[address] Mayda Garcia Work Phone: [facility] Work Phone: 11-06-2021 16:11-0400 Diastolic blood pressure 70 mm[Hg] Dr. Mayda Garcia Work Phone: [facility] Work Phone: 11-06-2021 16:11-0400 Heart rate 97 /min Dr. Mayda Garcia Work Phone: [facility] Work Phone: 11-06-2021 16:11-0400 Respiratory rate 18 /min Dr. Mayda Garcia Work Phone: [facility] Work Phone: 11-06-2021 16:11-0400 SaO2% (BldA) [Mass fraction] 97 % Dr. Mayda Garcia Work Phone: [facility] Work Phone: 11-06-2021 16:11-0400 Systolic blood pressure 130 mm[Hg] Dr. Mayda Garcia Work Phone: [facility] Work Phone: 11-05-2021 10:56-0400 Body mass index (BMI) [Ratio] 32.3 kg/m2 Dr. Mayda Garcia Work Phone: [facility] Work Phone: 11-05-2021 10:56-0400 Body temperature 97.4 [degF] Dr. Mayda Garcia Work Phone: [facility] Work Phone: 11-05-2021 10:56-0400 Body weight 80.[address] Mayda Garcia Work Phone: [facility] Work Phone: 11-05-2021 10:56-0400 Diastolic blood pressure 78 mm[Hg] Dr. Mayda Garcia Work Phone: [facility] Work Phone: 11-05-2021 10:56-0400 Heart rate 91 /min Dr. Mayda Garcia Work Phone: [facility] Work Phone: 11-05-2021 10:56-0400 Respiratory rate 16 /min Dr. Mayda Garcia Work Phone: [facility] Work Phone: 11-05-2021 10:56-0400 SaO2% (BldA) [Mass fraction] 98 % Dr. Mayda Garcia Work Phone: [facility] Work Phone: 11-05-2021 10:56-0400 Systolic blood pressure 144 mm[Hg] Dr. Mayda Garcia Work Phone: [facility] Work Phone: 10-25-2021 15:34-0400 Body temperature 98.9 [degF] Dr. Mayda Garcia Work Phone: [facility] Work Phone: 10-25-2021 15:34-0400 Diastolic blood pressure 64 mm[Hg] Dr. Mayda Garcia Work Phone: [facility] Work Phone: 10-25-2021 15:34-0400 Heart rate 78 /min Dr. Mayda Garcia Work Phone: [facility] Work Phone: 10-25-2021 15:34-0400 Respiratory rate 12 /min Dr. Mayda Garcia Work Phone: [facility] Work Phone: 10-25-2021 15:34-0400 SaO2% (BldA) [Mass fraction] 98 % Dr. Mayda Garcia Work Phone: [facility] Work Phone: 10-25-2021 15:34-0400 Systolic blood pressure 126 mm[Hg] Dr. Mayda Garcia Work Phone: [facility] Work Phone: 10-25-2021 13:34-0400 Body height 157.[address] Mayda Garcia Work Phone: [facility] Work Phone: 10-25-2021 13:34-0400 Body mass index (BMI) [Ratio] 32.9 kg/m2 Dr. Mayda Garcia Work Phone: [facility] Work Phone: 10-25-2021 13:34-0400 Body weight 81.[address] Mayda Garcia Work Phone: [facility] Work Phone: 10-17-2021 10:00-0400 Body mass index (BMI) [Ratio] 31.6 kg/m2 Dr. Mayda Garcia Work Phone: [facility] Work Phone: 10-17-2021 10:00-0400 Body weight 78.[address] Mayda Garcia Work Phone: [facility] Work Phone: 10-17-2021 10:00-0400 Diastolic blood pressure 60 mm[Hg] Dr. Mayda Garcia Work Phone: [facility] Work Phone: 10-17-2021 10:00-0400 Heart rate 79 /min Dr. Mayda Garcia Work Phone: [facility] Work Phone: 10-17-2021 10:00-0400 Respiratory rate 16 /min Dr. Mayda Garcia Work Phone: [facility] Work Phone: 10-17-2021 10:00-0400 SaO2% (BldA) [Mass fraction] 99 % Dr. Mayda Garcia Work Phone: [facility] Work Phone: 10-17-2021 10:00-0400 Systolic blood pressure 106 mm[Hg] Dr. Mayda Garcia Work Phone: [facility] Work Phone: 07-16-2021 13:57-0400 Body mass index (BMI) [Ratio] 32.4 kg/m2 Dr. Mayda Garcia Work Phone: [facility] Work Phone: 07-16-2021 13:57-0400 Diastolic blood pressure 84 mm[Hg] Dr. Mayda Garcia Work Phone: [facility] Work Phone: 07-16-2021 13:57-0400 Systolic blood pressure 150 mm[Hg] Dr. Mayda Garcia Work Phone: [facility] Work Phone: 07-16-2021 13:05-0400 Body weight 80.[address] Mayda Garcia Work Phone: [facility] Work Phone: 07-16-2021 13:05-0400 Heart rate 106 /min Dr. Mayda Garcia Work Phone: [facility] Work Phone: 07-16-2021 13:05-0400 SaO2% (BldA) [Mass fraction] 97 % Dr. Mayda Garcia Work Phone: [facility] Work Phone: Encounters Encounter Date Encounter Type Care Provider Facility Start: 01-19-2025 ambulatory Shruthi Mary ty:[facility] Start: 11-25-2024 ambulatory Mikhail Esposito Facility :[facility] Start: 11-16-2024 Encounter for genera l adult medical examination without abnormal findings Vanita Venegas NP [facility] Start: 11-16-2024 End: 11-16-2024 Dr. Mayda Garcia MD -[facility] Work Phone: Start: 11-16-2024 End: 11-16-[address] Mayda Garcia MD Work Phone: -[facility] Start: 11-14-2024 Dr. Maurilio Bradford MD -[facility] Work Phone: Start: 11-14-2024 Dr. Aleksandr doty MD -[facility] Start: 11-13-[address] Noris Garcia MD Work Phone: -Progressive Care Unit Start: 11-13-2024 Dr. Edwin Kaplan DO -[facility] Care [facility] Work Phone: Start: 11-13-2024 End: 11-14-2024 ambulatory Maurilio Bradford Facility:[facility] Start: 11-13-2024 End: 11-14-[address] Mayda Garcia MD Work Phone: -Progressive Care Unit Start: 11-13-2024 End: 11-14-2024 Dr. Edwin Kaplan DO -[facility] Work Phone: Start: 11-11-2024 End: 11-11-[address] Mayda Garcia MD Work Phone: -Sleep Lab Start: 11-11-2024 End: 11-11-2024 Vanita Venegas NP-C -Sleep Lab Work Phone: Start: 11-11-2024 End: 11-11-[address] Mayda Garcia MD Work Phone: -Laboratory Start: 11-11-2024 End: 11-11-2024 Dr. Pepe Ruiz MD -Laboratory Work Phone: Start: 11-11-2024 End: 11-11-2024 [facility] Start: 11-07-2024 End: 11-07-2024 Dr. Pepe Ruiz MD -[facility] Work Phone: Start: 11-07-2024 End: 11-07-[address] Mayda Garcia MD Work Phone: -[facility] Start: 10-20-2024 End: 10-20-[address] Mayda Garcia MD Work Phone: [facility] Work Phone: Start: 10-20-2024 End: 10-20-2024 Vanita GRIMES -Sleep Lab Work Phone: Start: 10-20-2024 End: 10-20-2024 ambulatory Mayda Garcia Facility:[facility] Start: 10-03-2024 End: 10-03-2024 Dr. Pepe Ruiz MD -[facility] Work Phone: Start: 10-03-2024 End: 10-03-[address] Mayda Garcia MD Work Phone: [facility] Work Phone: Start: 09-28-2024 End: 09-28-2024 Vanita Venegas DIRECTOR OF REGULATORY AFFAIRSSuellenC -[facility] Work Phone: Start: 09-28-2024 End: 09-28-[address] Mayda Garcia MD Work Phone: [facility] Work Phone: Start: 09-22-2024 End: 09-22-[address] Mayda Garcia MD Work Phone: [facility] Work Phone: Start: 09-22-2024 End: 09-22-2024 Dr. Mayda Garcia MD -Laboratory [facility] Start: 09-21-2024 End: 09-21-2024 Dr. Mayda Garcia MD -[facility] Work Phone: Start: 09-21-2024 End: 09-22-[address] Mayda Garcia MD Work Phone: [facility] Work Phone: Start: 09-19-2024 End: 09-19-2024 Mikhail LÓPEZ -[facility] Work Phone: Start: 09-19-2024 End: 09-19-[address] Mayda Garcia MD Work Phone: [facility] Work Phone: Start: 09-16-2024 End: 09-16-2024 Dr. Mayda Garcia MD Work Phone: -Emergency Department Work Phone: Start: 09-16-2024 End: 09-16-2024 Emergency department patient visit Dr. Mayda Garcia MD Work Phone: [facility] Work Phone: Start: 08-11-2024 ambulatory Efewongbe Oleghe Facili ty:[facility] Start: 08-10-2024 End: 08-10-2024 Dr. Mayda Garcia MD -[facility] Work Phone: Start: 08-10-2024 End: 08-10-2024 ambulatory Jiaenrique Ibaneztoyae Facility:[facility] Start: 07-22-2024 ambulatory Efewongbe Oletoyae Facili ty:[facility] Start: 07-15-2024 End: 07-15-2024 Dr. Mayda Garcia MD Work Phone: -Emergency Department Work Phone: Start: 07-15-2024 End: 07-15-2024 Emergency department patient visit Dr. Mayda Garcia MD Work Phone: [facility] Work Phone: Start: 07-14-2024 End: 07-14-2024 Emergency department patient visit Dr. Mayda Garcia MD Work Phone: [facility] Work Phone: Start: 07-14-2024 End: 07-14-2024 Dr. Mayda Garcia MD Work Phone: -Emergency Department Work Phone: Start: 07-05-2024 End: 07-05-2024 Dr. Pepe Ruiz MD -[facility] Work Phone: Start: 07-05-2024 End: 07-05-2024 ambulatory Pepe Ruiz Facility:[facility] Start: 06-22-2024 End: 06-22-2024 Dr. Yee Rowland MD -Laboratory, [facility] Work Phone: Start: 06-22-2024 End: 06-22-2024 ambulatory [facility] Facility:[facility] Start: 06-07-2024 End: 06-07-2024 Dr. Mayda Garcia MD -Outpatient Breast Imaging Work Phone: Start: 06-07-2024 End: 06-07-2024 ambulatory [facility] Facility:[facility] Start: 05-20-2024 End: 05-20-2024 Dr. Mayda Garcia MD -[facility] Work Phone: Start: 05-20-2024 End: 05-20-2024 ambulatory [facility] Facility:[facility] Start: 05-16-2024 End: 05-16-2024 Dr. Pepe Ruiz MD -Laboratory, [facility] Work Phone: Start: 05-16-2024 End: 05-16-2024 Dr. Pepe Ruiz MD -[facility] Work Phone: Start: 05-16-2024 End: 05-16-2024 ambulatory Pepe Ruiz Facility:[facility] Start: 05-16-2024 End: 05-16-2024 ambulatory [facility] Facility:[facility] Start: 04-25-2024 ambulatory Russell Jang Facility:[facility] Start: 04-25-2024 Dr. Russell Jang DO -[facility] Start: 04-21-2024 End: 04-21-2024 Dr. Pepe Ruiz MD -[facility] Work Phone: Start: 04-21-2024 End: 04-21-2024 ambulatory Pepe Ruiz Facility:[facility] Start: 04-20-2024 End: 04-20-2024 Vanita Venegas DIRECTOR OF REGULATORY AFFAIRS-C -Pulmonary Services/Neurology Work Phone: Start: 04-19-2024 End: 04-19-2024 Dr. Winston Johnson MD -[facility] Work Phone: Start: 04-19-2024 End: 04-20-2024 ambulatory Vanita Venegas NP Facility:[facility] Start: 04-04-2024 ambulatory Mayda Ibaneztoyachandana Apodacai ty:[facility] Start: 02-19-2024 End: 02-19-2024 ambulatory Mayda Garcia Facility:[facility] Start: 02-19-2024 End: 02-19-2024 ambulatory michelleboulderconsuelo Espinozachandana Facility:[facility] Start: 02-14-2024 End: 02-14-2024 Emergency department patient visit Ulisses Chan Facility:[facility] Start: 09-07-2023 End: 09-07-[address] Mayda Garcia Work Phone: [facility] Work Phone: Start: 09-07-2023 End: 09-07-[address] Mayda Garcia Work Phone: [facility] Work Phone: Start: 08-19-2023 End: 08-19-[address] Mayda Garcia Work Phone: [facility] Work Phone: Start: 08-19-2023 End: 09-01-[address] Mayda Garcia Work Phone: [facility] Work Phone: Start: 08-19-2023 End: 09-01-[address] Mayda Garcia Work Phone: [facility]-Cardiac Rehab Work Phone: Start: 08-19-[address] Susan Garcia Work Phone: [facility]-Cardiac Rehab Work Phone: Start: 08-14-2023 End: 08-14-[address] Mayda Garcia Work Phone: [facility] Work Phone: Start: 08-14-2023 End: 08-14-[address] Mayda Garcia Work Phone: [facility]-Cat Scan, [facility] Work Phone: Start: 08-10-2023 End: 08-10-[address] Mayda Garcia Work Phone: [facility] Work Phone: Start: 08-10-2023 End: 08-10-[address] Mayda Garcia Work Phone: [facility]-Nuclear Medicine, [facility] Work Phone: Start: 08-10-[address] Susan Garcia Work Phone: [facility]-Cardiac Rehab Work Phone: Start: 07-31-2023 End: 08-02-[address] Mayda Garcia Work Phone: [facility] Work Phone: Start: 07-31-2023 End: 08-02-[address] Mayda Garcia Work Phone: [facility]-Cardiac Rehab Work Phone: Start: 07-30-2023 End: 07-30-[address] Mayda Garcia Work Phone: [facility] Gastroenterology Work Phone: Start: 07-27-[address] Susan Garcia Work Phone: [facility]-Cardiac Rehab Work Phone: Start: 07-23-2023 End: 07-23-[address] Mayda Garcia Work Phone: [facility] Internal Medicine Work Phone: Start: 07-21-2023 End: 07-21-[address] Mayda Garcia Work Phone: [facility] Work Phone: Start: 07-21-2023 End: 07-21-[address] Mayda Garcia Work Phone: [facility]-Sleep Lab Work Phone: Start: 07-21-2023 End: 07-21-[address] Mayda Garcia Work Phone: [facility] Work Phone: Start: 07-21-2023 End: 07-21-[address] Mayda Garcia Work Phone: [facility]-Outpatient Bone Densitometry Work Phone: Start: 07-20-2023 End: 07-20-[address] Mayda Garcia Work Phone: [facility] Neurology Work Phone: Start: 07-01-2023 End: 07-02-[address] Mayda Garcia Work Phone: [facility] Work Phone: Start: 07-01-2023 End: 07-02-[address] Mayda Garcia Work Phone: [facility]-Cardiac Rehab Work Phone: Start: 07-01-[address] Susan Garcia Work Phone: [facility]-Cardiac Rehab Work Phone: Start: 06-25-2023 End: 06-25-[address] Mayda Garcia Work Phone: [facility] Work Phone: Start: 06-25-2023 End: 06-25-[address] Mayda Garcia Work Phone: [facility]-Sleep Lab Work Phone: Start: 06-22-[address] Susan Garcia Work Phone: [facility]-Cardiac Rehab Work Phone: Start: 06-17-2023 End: 06-17-[address] Mayda Garcia Work Phone: [facility] Work Phone: Start: 06-17-2023 End: 06-17-[address] Mayda Garcia Work Phone: [facility] Work Phone: Start: 06-10-2023 End: 06-10-[address] Mayda Garcia Work Phone: [facility]-Pulmonary Medicine [facility] Work Phone: Start: 06-01-2023 End: 06-01-[address] Mayda Garcia Work Phone: [facility] Work Phone: Start: 06-01-2023 End: 06-01-[address] Mayda Garcia Work Phone: [facility]Cardiac Re[facility] Work Phone: Start: 05-25-2023 End: 05-25-[address] Mayda Garcia Work Phone: [facility] Work Phone: Start: 05-25-2023 End: 05-25-[address] Mayda Garcia Work Phone: [facility]-Outpatient Breast Imaging Work Phone: Start: 05-20-2023 End: 05-20-[address] Mayda Garcia Work Phone: [facility] Work Phone: Start: 05-18-2023 End: 05-18-[address] Mayda Garcia Work Phone: [facility] Work Phone: Start: 04-16-2023 End: 04-16-[address] Mayda Garcia Work Phone: [facility] Work Phone: Start: 04-08-2023 Non-patient / Non-visit Dr. Jia Garcia Work Phone: [facility] Start: 03-30-2023 End: 03-30-[address] Mayda Garcia Work Phone: [facility] Work Phone: Start: 03-30-2023 End: 03-30-[address] Mayda Garcia Work Phone: [facility] Work Phone: Start: 03-30-2023 End: 03-30-2023 Dr. Mayda Garcia Work Phone: [facility] Work Phone: Start: 03-19-2023 End: 03-19-[address] Mayda Garcia Work Phone: [facility] Work Phone: Start: 03-19-2023 End: 03-19-2023 Dr. Mayda Garcia Work Phone: [facility] Work Phone: Start: 03-16-2023 End: 03-16-[address] Mayda Garcia Work Phone: [facility] Work Phone: Start: 03-16-2023 End: 03-16-2023 Dr. Mayda Garcia Work Phone: [facility] Work Phone: Start: 02-18-2023 End: 02-18-[address] Mayda Garcia Work Phone: [facility] Work Phone: Start: 02-18-2023 End: 02-18-[address] Mayda Garcia Work Phone: [facility] Work Phone: Start: 02-18-2023 End: 02-18-2023 Dr. Mayda Garcia Work Phone: [facility] Work Phone: Start: 02-18-2023 End: 02-18-[address] Mayda Garcia Work Phone: [facility] Work Phone: Start: 02-18-2023 End: 02-18-2023 Dr. Mayda Garcia Work Phone: [facility] Work Phone: Start: 02-11-2023 End: 02-11-[address] Mayda Garcia Work Phone: [facility] Work Phone: Start: 02-11-2023 End: 02-11-2023 Dr. Mayda Garcia Work Phone: [facility] Work Phone: Start: 02-04-2023 End: 02-04-[address] [facility] [place] Start: 02-04-2023 End: 02-04-2023 Dr. Mayda Garcia Work Phone: [facility] [place] Start: 02-04-2023 End: 02-04-[address] Mayda Garcia Work Phone: [facility] Work Phone: Start: 02-04-2023 End: 02-04-2023 Dr. Mayda Garcia Work Phone: [facility] Work Phone: Start: 01-27-2023 End: 01-27-2023 Postop follow up visit related to original px Kassylee Ken CNP Work Phone: [facility] Comment on above: S/P CABG (coronary a rtery bypass graft) (Primary Dx) Start: 01-11-2023 End: 01-26-2023 Evaluation and management of inpatient Dr. Mayda Garcia [facility] Start: 01-11-2023 End: 01-26-2023 Dr. Mayda Garcia [facility] Start: 01-01-2023 Evaluation and management of inpatient AZAM ROSE [facility] Start: 01-01-2023 End: 01-11-2023 Evaluation and management of inpatient Azam Rose MD Work Phone: [facility] Comment on above: S/P CABG (coronary a rtery bypass graft) (Primary Dx); CAD in [place] artery; Coronary artery disease involving coronary bypass graft, unspecified whether angina present, unspecified whether [place] or transplanted heart Start: 12-29-2022 End: 12-29-2022 Encounter for other preprocedural examination AZAM ROSE [facility] Start: 12-29-2022 End: 12-30-2022 ambulatory AZAM ROSE [facility] Start: 12-29-2022 End: 12-29-2022 Preoperative state Azam Rose MD [facility] Start: 12-29-2022 End: 12-29-2022 Subsequent hospital visit by physician Azam Rose MD Work Phone: [facility] Comment on above: Preoperative clearan ce Start: 12-24-2022 Admission to [facility] Kassy Tabares ELECTRIC MOTOR [employer]S ASSEMBLER - RIGGING SUPERVISOR Work Phone: [facility] Comment on above: CAD in [place] artery (Primary Dx); Preoperative clearance Start: 12-24-2022 ambulatory Kassy Tabares ELECTRIC MOTOR CONTROLS ASSEMBLER - RIGGING SUPERVISOR Work Phone: [facility] Start: 12-24-2022 Preoperative state Kassylee reese ELECTRIC MOTOR CONTROLS ASSEMBLER - RIGGING SUPERVISOR [facility] Phone[facility]: Start: 12-23-2022 Telephone encounter Azam fenton MD Work Phone: [facility] Comment on above: Surgery Scheduling Start: 12-23-2022 End: 12-23-2022 ambulatory AZAM ROSE [facility] Start: 12-23-2022 End: 12-23-2022 Office outpatient new 60 minutes Azam Rose MD Work Phone: [facility] Comment on above: 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 Jia Garcia Work Phone: [facility] Work Phone: Start: 12-19-2022 Dr. Mayda Garcia Work Phone: [facility] Work Phone: Start: 12-19-2022 Non-patient / Non-visit Dr. Jia Garcia Work Phone: [facility] Start: 12-19-2022 Dr. Mayda Garcia Work Phone: [facility] Start: 12-18-2022 Non-patient / Non-visit Dr. Jia Garcia Work Phone: [facility] Work Phone: Start: 12-18-2022 Dr. Mayda Garcia Work Phone: [facility] Work Phone: Start: 12-18-2022 End: 12-19-2022 Evaluation and management of inpatient Dr. Mayda Garcia Work Phone: [facility] Work Phone: Start: 12-18-2022 End: 12-19-[address] Mayda Garcia Work Phone: [facility] Work Phone: Start: 12-18-2022 End: 12-19-2022 Dr. Mayda Garcia Work Phone: [facility] Care [facility] Work Phone: Start: 12-18-2022 Evaluation and management of inpatient Dr. Mayda Garcia Work Phone: [facility] Care [facility] Work Phone: Start: 12-16-2022 End: 12-16-[address] Mayda Garcia Work Phone: [facility] Work Phone: Start: 12-16-2022 End: 12-16-[address] Mayda Garcia Work Phone: [facility] Work Phone: Start: 12-16-2022 End: 12-16-2022 Dr. Mayda Garcia Work Phone: [facility] Work Phone: Start: 12-11-2022 End: 12-11-[address] Mayda Garcia Work Phone: [facility] Work Phone: Start: 12-11-2022 End: 12-11-2022 Dr. Mayda Garcia Work Phone: [facility] Work Phone: Start: 11-19-2022 End: 11-19-[address] Mayda Garcia Work Phone: [facility] Work Phone: Start: 11-19-2022 End: 11-19-2022 Dr. Mayda Garcia Work Phone: [facility] Work Phone: Start: 10-10-2022 End: 10-10-[address] Mayda Garcia Work Phone: [facility] Work Phone: Start: 10-03-2022 End: 10-03-[address] Mayda Garcia Work Phone: [facility] Work Phone: Start: 10-03-2022 End: 10-03-[address] Mayda Garcia Work Phone: [facility] Start: 10-03-2022 End: 10-03-[address] Mayda Garcia Work Phone: [facility] Start: 10-02-2022 End: 10-02-[address] Mayda Garcia Work Phone: [facility] Start: 10-01-2022 End: 10-01-[address] Mayda Garcia Work Phone: [facility] Work Phone: Start: 10-01-2022 End: 10-01-[address] Mayda Garcia Work Phone: [facility] [place] Start: 08-22-2022 End: 08-22-[address] Madya Lozano Phone: [facility] Start: 08-13-2022 End: 08-14-2022 Emergency department patient [facility]oz[facility] Start: 07-16-2022 End: 07-16-[address] Mayda Garcia Work Phone: [facility] Start: 06-30-2022 End: 06-30-[address] Mayda Garcia Work Phone: [facility] Start: 06-09-2022 End: 06-09-[address] Mayda Garcia Work Phone: [facility] Start: 06-07-2022 End: 06-07-2022 Emergency department patient visit Dr. Mayda Garcia Work Phone: [facility]Emergency Department Start: 06-06-2022 End: 06-06-2022 Emergency department patient visit Dr. Mayda Garcia Work Phone: [facility]Emergency Department Start: 05-06-2022 End: 05-06-[address] Mayda Garcia Work Phone: [facility] Work Phone: Start: 05-06-2022 End: 05-06-[address] Mayda Garcia Work Phone: [facility] Start: 04-02-2022 End: 04-02-[address] Mayda Garcia Work Phone: [facility] Start: 03-29-2022 End: 03-29-2022 Emergency department patient visit Dr. Mayda Garcia Work Phone: [facility]Emergency Department Start: 03-14-2022 End: 03-14-2022 Emergency department patient visit Dr. Mayda Garcia Work Phone: [facility]Emergency Department Start: 03-10-2022 End: 03-10-[address] Mayda Garcia [facility] Start: 02-21-2022 End: 02-21-[address] Mayda Garcia Work Phone: [facility] Work Phone: Start: 02-21-2022 End: 02-21-[address] Mayda Garcia Work Phone: [facility]-Physical Therapy Start: 01-14-2022 End: 01-14-[address] Mayda Garcia Work Phone: [facility] Start: 01-10-2022 End: 01-10-[address] Mayda Garcia Work Phone: [facility] Work Phone: Start: 01-10-2022 End: 01-10-[address] Mayda Garcia Work Phone: [facility] Start: 01-03-2022 Non-patient / Non-visit Dr. Jia Garcia Work Phone: [facility] Start: 01-03-2022 Non-patient / Non-visit Dr. Jia Garcia Work Phone: [facility] Start: 01-02-2022 Non-patient / Non-visit Dr. Jia Garcia Work Phone: [facility] Start: 01-02-2022 End: 01-03-2022 Evaluation and management of inpatient Dr. Mayda Garcia Work Phone: [facility]-Progressive Care Unit Start: 01-02-2022 End: 01-03-[address] Mayda Garcia Work Phone: [facility] Work Phone: Start: 01-02-2022 Non-patient / Non-visit Dr. Jia Garcia Work Phone: [facility] Start: 12-23-2021 End: 12-23-[address] Mayda Garcia Work Phone: [facility] Start: 12-17-2021 End: 12-17-2021 Emergency department patient visit Dr. Mayda Garcia Work Phone: [facility]-Emergency Department Start: 12-12-2021 End: 12-12-[address] Mayda Garcia Work Phone: [facility]-Outpatient Breast Imaging Start: 11-29-2021 Non-patient / Non-visit Dr. Jia Garcia Work Phone: [facility] Start: 11-29-2021 End: 11-29-[address] Mayda Lozano Phone: [facility]-Cardiovascular Services Start: 11-28-2021 End: 11-28-2021 Emergency department patient visit Dr. Mayda Lozano Phone: [facility]-Emergency Department Start: 11-06-[address] Mayda Garcia Work Phone: [facility] Start: 11-06-2021 End: 11-06-2021 Encounter for general adult medical examination without abnormal findings Dr. Mayda Lozano Phone: [facility] Start: 11-06-2021 End: 11-06-[address] Mayda Lozano Phone: [facility] Start: 11-05-2021 End: 11-05-[address] [facility]oz[facility] Start: 10-25-2021 End: 10-25-2021 Emergency department patient visit Dr. Mayda Lozano Phone: [facility]Emergency Department Start: 10-17-2021 End: 10-17-[address] Mayda Garcia Work Phone: [facility] Start: 07-18-2021 End: 07-18-[address] Mayda Lozano Phone: [facility]-Physical Therapy Start: 07-16-2021 End: 07-16-[address] Mayda Lozano Phone: [facility] Start: 07-10-2021 End: 07-10-[address] Mayda Garcia Work Phone: [facility] Start: 10-02-[address] Mayda Garcia Work Phone: [facility] Start: 02-25-2018 End: 03-01-2018 Patient encounter procedure TILA (PT) JENELLE [facility] Start: 02-22-2018 End: 02-22-2018 Patient encounter procedure JOSSUE FINLEY [facility] Start: 02-18-2018 End: 02-22-2018 Patient encounter procedure TILA (PT) [facility] Start: 02-11-2018 End: 02-12-2018 Patient encounter procedure TILA (PT) [facility] Start: [facility]-09-2018 [facility] Start: 02-04-2018 End: 02-04-2018 Patient encounter procedure TILA (PT) [facility] Start: 02-02-2018 End: 02-03-2018 Patient encounter procedure TILA (PT) [facility] Start: 01-28-2018 End: 02-01-2018 Patient encounter procedure TILA (PT) JENELLE [facility] Start: 01-26-2018 End: 01-27-2018 Patient encounter procedure TILA (PT) [facility] Start: 01-21-2018 End: 01-25-2018 Patient encounter procedure TILA (PT) JENELLE [facility] Start: 01-14-2018 Patient encounter procedure TILA (PT) [facility] Start: 01-12-2018 End: 01-13-2018 Patient encounter procedure TILA (PT) [facility] Start: 01-11-2018 End: 01-11-2018 Patient encounter procedure MYNOR FLORES [facility] Start: 01-07-2018 End: 01-08-2018 Patient encounter procedure TILA (PT) [facility] Start: 01-05-2018 End: 01-06-2018 Patient encounter procedure TILA (PT) [facility] Start: 12-17-2017 End: 12-17-2017 Patient encounter procedure MYNOR FLORES [facility] Start: 12-09-2017 End: 12-09-2017 Patient encounter procedure MYNOR FLORES [facility] Start: 10-15-2017 End: 10-16-2017 Patient encounter procedure JOSSUE FINLEY [facility] Start: 10-14-2017 End: 10-14-2017 Patient encounter procedure JOSSUE FINLEY [facility] Start: 07-20-2017 End: 07-20-2017 Patient encounter procedure GLEN ([employer]IR[employer] RAMP SUPERVISOR) JULIO [facility] Start: 02-09-2017 End: 02-09-2017 Ambulatory CHRIS YAO [facility] Procedures Date Procedure Procedure Detail Performing Clinician Start: 11-14-2024 Cardiovascular stress test using pharmacologic stress agent Dr. Mayda Garcia MD Work Phone: Start: 11-14-[address] Mayda tanner MD Work Phone: Start: 11-14-[address] Mayda Garcia MD Work Phone: Start: 11-14-2024 Mean corpuscular hemoglobin concentration determination Dr. Mayda Garcia MD Work Phone: Start: 11-14-2024 Platelet mean volume determination Dr. Mayda Garcia MD Work Phone: Start: 11-14-2024 Total cholesterol:HDL ratio measurement Dr. Mayda Garcia MD Work Phone: Start: 11-13-2024 D-dimer assay, quantitative Dr. Mayda Garcia MD Work Phone: Start: 11-13-2024 Plain chest X-ray Dr. Mayda Garcia MD Work Phone: Start: 11-13-2024 Blood count smear mcrscp w/mnl difrntl wbc count Dr. Mayda Garcia MD Work Phone: Start: 11-13-2024 D-dimer assay, quantitative Dr. Mayda Garcia MD Work Phone: Start: 11-13-2024 Mean corpuscular hemoglobin concentration determination Dr. Mayda Garcia MD Work Phone: Start: 11-13-2024 Nucleated red blood cell count procedure Dr. Mayda Garcia MD Work Phone: Start: 11-13-2024 Platelet mean volume determination Dr. Mayda Garcia MD Work Phone: Start: 11-13-[address] Mayda Garcia MD Work Phone: Start: 09-22-[address] Mayda Garcia [...] Mayda Garcia MD Work Phone: Start: 09-22-2024 MANAGER FIXED INCOME antibody measurement Dr. Mayda alanis MD Work [...] S/P CABG (coronary artery bypass graft) Kassy Denniser ELECTRIC MOTOR CONTROLS ASSEMBLER - RIGGING SUPERVISOR Work Phone: Start: 01-10-2023 Glucose quantitative blood xcpt reagent strip Azam Rose MD Work Phone: Start: 01-09-2023 Glucose quantitative blood xcpt reagent strip Azam Rose MD Work Phone: Start: 01-08-2023 Glucose quantitative blood xcpt reagent strip Azam Rose MD Work Phone: Start: 01-08-2023 Glucose quantitative blood xcpt reagent strip Azam Rose MD Work Phone: Start: 01-08-2023 Radiologic exam chest single view Shruthi Nel Weavre ELECTRIC MOTOR CONTROLS ASSEMBLER - RIGGING SUPERVISOR Work Phone: Start: 01-07-2023 Glucose quantitative blood xcpt reagent strip Azam Rose MD Work Phone: Start: 01-07-2023 Glucose quantitative blood xcpt reagent strip Azam Rose MD Work Phone: Start: 01-07-2023 Glucose quantitative blood xcpt reagent strip Azam Rose MD Work Phone: Start: 01-07-2023 Radiologic exam chest single view Shruthi Nel Weaver ELECTRIC MOTOR CONTROLS ASSEMBLER - RIGGING SUPERVISOR Work Phone: Start: 01-07-2023 Basic metabolic panel calcium total Shruthi Nel Weaver ELECTRIC MOTOR CONTROLS ASSEMBLER - RIGGING SUPERVISOR Work Phone: Start: 01-06-2023 Glucose quantitative blood xcpt reagent strip Azam Rose MD Work Phone: Start: 01-06-2023 Glucose quantitative blood xcpt reagent strip Azam Rose MD Work Phone: Start: 01-06-2023 Glucose quantitative blood xcpt reagent strip Azam Rose MD Work Phone: Start: 01-06-2023 Radiologic exam chest single view Shruthi Neumann Carmella ELECTRIC MOTOR CONTROLS ASSEMBLER - RIGGING SUPERVISOR Work Phone: Start: 01-06-2023 Basic metabolic panel calcium total Shruthi Plunkettke ELECTRIC MOTOR CONTROLS ASSEMBLER - RIGGING SUPERVISOR Work Phone: Start: 01-05-2023 Glucose quantitative blood xcpt reagent strip Azam Rose MD Work Phone: Start: 01-05-2023 Glucose quantitative blood xcpt reagent strip Azam Rose MD Work Phone: Start: 01-05-2023 Radiologic exam chest single view Shruthi Neumann Carmella ELECTRIC MOTOR CONTROLS ASSEMBLER - RIGGING SUPERVISOR Work Phone: Start: 01-05-2023 Compatibility each unit electronic Remington Hopkins MD Work Phone: Start: 01-05-2023 Basic metabolic panel calcium total Shruthi Plunkettke ELECTRIC MOTOR CONTROLS ASSEMBLER - RIGGING SUPERVISOR Work Phone: Start: 01-04-2023 Glucose quantitative blood xcpt reagent strip Azam Rose MD Work Phone: Start: 01-04-2023 Glucose quantitative blood xcpt reagent strip Azam Rose MD Work Phone: Start: 01-04-2023 Radiologic exam chest single view Shruthi Nel Weaver ELECTRIC MOTOR CONTROLS ASSEMBLER - RIGGING SUPERVISOR Work Phone: Start: 01-04-2023 End: 01-04-2023 Basic metabolic panel calcium total Shruthi Plunkettke ELECTRIC MOTOR CONTROLS ASSEMBLER - RIGGING SUPERVISOR Work Phone: Start: 01-03-2023 Glucose quantitative blood xcpt reagent strip Azam Rose MD Work Phone: Start: 01-03-2023 Glucose quantitative blood xcpt reagent strip Azam Rose MD Work Phone: Start: 01-03-2023 Glucose quantitative blood xcpt reagent strip Azam Rose MD Work Phone: Start: 01-03-2023 Radiologic exam chest single view Shruthi Nel Weaver ELECTRIC MOTOR CONTROLS ASSEMBLER - [facility] Work Phone: Start: 01-03-2023 Basic metabolic panel calcium total Shruthi Plunkettke ELECTRIC MOTOR CONTROLS ASSEMBLER - RIGGING SUPERVISOR Work Phone: Start: 01-02-2023 Glucose quantitative blood xcpt reagent strip Azam Rose MD Work Phone: Start: 01-02-2023 Glucose quantitative blood xcpt reagent strip Azam Rose MD Work Phone: Start: 01-02-2023 End: 01-02-2023 Basic metabolic panel calcium total Chandler Harmon Leanna ELECTRIC MOTOR CONTROLS ASSEMBLER - [facility] Work Phone: Start: 01-02-2023 Glucose quantitative blood xcpt reagent strip Azam Rose MD Work Phone: Start: 01-02-2023 Glucose quantitative blood xcpt reagent strip Azam Rose MD Work Phone: Start: 01-02-2023 Radiologic exam chest single view Shruthi Nel Weaver ELECTRIC MOTOR CONTROLS ASSEMBLER - [facility] Work Phone: Start: 01-02-2023 Ecg routine ecg w/least 12 lds trcg only w/o i&r Shruthi Nel Weaver ELECTRIC MOTOR CONTROLS ASSEMBLER - [facility] Work Phone: Start: 01-02-2023 End: 01-02-2023 Glucose quantitative blood xcpt reagent strip Azam Rose MD Work Phone: Start: 01-02-2023 End: 01-02-2023 Glucose quantitative blood xcpt reagent strip Azam Rose MD Work Phone: Start: 01-02-2023 Glucose quantitative blood xcpt reagent strip Azam Rose MD Work Phone: Start: 01-02-2023 End: 01-02-2023 Basic metabolic panel calcium total Shruthi Nel Weaver ELECTRIC MOTOR CONTROLS ASSEMBLER - RIGGING SUPERVISOR Work Phone: Start: 01-01-2023 Glucose quantitative blood [...] count hematocrit Mynor Villareal A PRN - RIGGING SUPERVISOR Work Phone: Start: 01-01-2023 Compatibility each unit electronic Mynor Villareal ELECTRIC MOTOR CONTROLS ASSEMBLER - RIGGING SUPERVISOR Work Phone: Start: 01-01-2023 End: 01-01-2023 TRANSFUSE RED BLOOD CELLS Mynor Carranza Gene t ELECTRIC MOTOR CONTROLS ASSEMBLER - RIGGING SUPERVISOR Work Phone: Start: 01-01-2023 Radiologic exam chest single view Mynor Villareal ELECTRIC MOTOR CONTROLS ASSEMBLER - RIGGING SUPERVISOR Work Phone: Start: 01-01-2023 End: 01-01-2023 Blood count complete automated Mynor Villareal ELECTRIC MOTOR CONTROLS ASSEMBLER - RIGGING SUPERVISOR Work Phone: Start: 01-01-2023 Echo transesophag r-t 2d w/prb img acquisj i&r Azam Rose MD Work Phone: Start: 01-01-2023 Ecg routine ecg w/least 12 lds trcg only w/o i&r Shruthi Weaver ELECTRIC MOTOR CONTROLS ASSEMBLER - RIGGING SUPERVISOR Work Phone: Start: 01-01-2023 End: 01-01-2023 Glucose quantitative blood xcpt reagent strip Azam Rose MD Work Phone: Start: 08-31-2023 Basic metabolic panel calcium total Azam Rose [...] CABG (coronary artery bypass graft) Kassy Tabares ELECTRIC MOTOR [employer]SEMBLER - RIGGING SUPERVISOR Work Phone: History of coronary artery bypass grafting Dr. Mayda Garcia Work Phone: History of coronary artery bypass grafting Dr. Mayda Garcia MD Work Phone: History of coronary artery bypass grafting Dr. Mayda Garcia MD Work Phone: History of coronary artery bypass grafting Mikhail LÓPEZ History of coronary artery bypass grafting Dr. Maurilio Bradford MD SARS-CoV-2 & FLU Ant igen (Rapid) Dr. Mayda Garcia Work Phone: Streptococcus pyogen es antigen assay Dr. Mayda Garcia Work Phone: Urine culture Dr. Mayda Garcia Work Phone: Plan of Treatment Date Care Activity Detail Author Start: 11-14-2024 Patient discharge [facility] Start: 11-14-2024 [facility] Start: 11-13-2024 Following clinical pathway protocol [facility] Start: 11-13-2024 Ambulation without limitation [facility] Start: 11-13-2024 Assessment of risk of venous thromboembolism [facility] Start: 11-13-2024 Incentive spirometry [facility] Start: 11-13-2024 Insertion of catheter into peripheral vein [facility] Start: 11-13-2024 Measuring intake and output [facility] Start: 11-13-2024 Oxygen therapy [facility] Start: 11-13-2024 Providing care according to standard [facility] Start: 11-13-2024 Referral to special forces weapons sergeant [facility] Start: 11-13-2024 [facility] Start: 11-13-2024 Thyroid stimulating hormone measurement [facility] Start: 11-13-2024 Verification routine [facility] Start: 11-13-2024 Hospital admission, emergency, from emergency room, medical nature [facility] Start: 11-13-2024 Admission procedure [facility] Start: 11-13-2024 [facility] Start: 09-22-2024 Cytoplasmic ANCA Screen [facility] Start: 09-21-2024 Patient referral [facility] Work Phone: Start: 09-16-2024 [facility] Start: 07-15-2024 [facility] Start: 07-14-2024 [facility] Start: 07-14-2024 [facility] Start: 05-20-2024 Patient referral [facility] Work Phone: Start: 01-08-2024 Creatinine measurement Creatinine Level [facility] Start: 01-08-2024 Potassium measurement Potassium Level [facility] Start: 01-02-2024 Echocardiography Echocardiogram [facility] Start: 12-30-2023 Hemoglobin A1c measurement Diabetes: Hemoglobin A1C [facility] Start: 07-23-2023 Patient referral [facility] Work Phone: Start: 06-17-2023 Patient referral [facility] Work Phone: Start: 06-01-2023 Patient referral to dietitian [facility] Start: 05-20-2023 Patient referral [facility] Work Phone: Start: 03-19-2023 Patient referral [facility] Work Phone: Start: 02-23-2023 Blood chemistry [facility] Start: 02-16-2023 Blood chemistry [facility] Start: 02-09-2023 Blood chemistry [facility] Start: 02-02-2023 Blood chemistry [facility] Start: 01-28-2023 Development of care plan [facility] Start: 01-26-2023 Patient discharge [facility] Start: 01-22-2023 Referral to service [facility] Start: 01-22-2023 Continuous positive airway pressure ventilation treatment [facility] Start: 01-21-2023 Following clinical pathway protocol [facility] Start: 01-21-2023 [facility] Start: 01-19-2023 End: 01-19-2023 Patient encounter procedure 01/19/2023 11:30 AM EDT Office Visit [facility] [address] [address] Kassy Tabares APRN - RIGGING SUPERVISOR [address] [facility] [place] [address] [facility] Start: 01-14-2023 End: 01-14-2023 Speech therapy management [facility] Start: 01-13-2023 Speech therapy assessment [facility] Start: 01-12-2023 [facility] Start: 01-12-2023 Development of care plan [facility] Start: 01-12-2023 Developing a treatment plan [facility] Start: 01-11-2023 Seizure precautions [facility] Start: 01-11-2023 Provision of activity privileges [facility] Start: 01-11-2023 Recommendation to continue with treatment [facility] Start: 01-11-2023 Wound care [facility] Start: 01-11-2023 Admission procedure [facility] Start: 01-11-2023 Measuring intake and output [facility] Start: 01-11-2023 Patient referral to dietitian [facility] Start: 01-11-2023 Referral to occupational therapist [facility] Start: 01-11-2023 Referral to service [facility] Start: 01-11-2023 Vital signs measurements [facility] Start: 01-11-2023 End: 01-11-2023 [facility] Start: 01-02-2023 Influenza vaccination Influenza Vaccine (#1) [facility] Start: 01-01-2023 End: 01-01-2023 Admission to same day surgery center 01/01/2023 7:30 AM EDT - 01/01/2023 12:30 PM EDT Surgery [facility] [address] [facility] [place] [address] Azam Rose MD [address] [facility] [place] [address] CABG AND SIS [41452 (CPT )] [facility] Comment on above: CABG AND SIS [80628 (CPT )] Start: 01-01-2023 End: 01-01-2023 Anesthesia consultation 01/01/2023 7:30 AM EDT Anesthesia Event [facility] [address] [place] [id number] Adilia Carson, RENE [address] [place] [address] [facility] Start: 01-01-2023 End: 01-01-2023 Cabg w/arterial graft three arterial grafts CABG X3 ARTERIAL GRAFTS Atherosclerotic heart disease of [place] coronary artery without angina pectoris 01/01/2023 7:30 AM EDT [facility] Operating Room Start: 01-01-2023 End: 01-01-2023 Echo transesophag r-t 2d w/prb img acquisj i&r Echocardiography transesophageal real-time Atherosclerotic heart disease of [place] coronary artery without angina pectoris 01/01/2023 7:30 AM EDT [facility] Operating Room Start: 01-01-2023 Subsequent hospital visit by physician 01/01/2023 7:30 AM EDT Hospital Encounter [facility] [address] [facility] [place] [address] Azam Rose MD [address] [place] [address], [address] [place] [address] [facility] Start: 12-26-2022 End: 12-26-2022 Admission to establishment 12/26/2022 1:00 PM EDT Pre-Admission Testing [facility] Pre-Admit Testing [address] [facility] [place] [address] [facility] Pre-Admit Testing Start: 12-24-2022 End: 02-23-2023 Basic metabolic 1998 panel - Serum or Plasma Basic metabolic panel Lab Routine Preoperative clearance Expected: 12/24/2022, Expires: 02/23/2023 [facility] Work Phone: Comment on above: Expected: 12/24/2022, Expires: Start: 12-24-2022 End: 02-23-2023 Blood type and Crossmatch panel - Blood Type and Screen Lab Routine Preoperative clearance Expected: 12/24/2022, Expires: 02/23/2023 [facility] Comment on above: Expected: 12/24/2022, Expires: 3 Start: 12-24-2022 End: 02-23-2023 CBC panel - Blood by Automated count CBC Lab Routine Preoperative clearance Expected: 12/24/2022, Expires: 02/23/2023 [facility] Comment on above: Expected: 12/24/2022, Expires: 3 Start: 12-24-2022 End: 02-23-2023 ECG 12 lead ECG 12 lead CV ECG Routine Preoperative clearance Expected: 12/24/2022, Expires: 02/23/2023 [facility] Comment on above: Expected: 12/24/2022, Expires: Start: 12-24-2022 End: 02-23-2023 Hemoglobin A1c/Hemoglobin.total in Blood Hemoglobin A1c Lab Routine Preoperative clearance Expected: 12/24/2022, Expires: 02/23/2023 [facility] Comment on above: Expected: 12/24/2022, Expires: 3 Start: 12-24-2022 End: 02-23-2023 Prepare RBC: 2 Units Prepare RBC: 2 Units Blood Bank Routine Preoperative clearance Expected: 12/24/2022, Expires: 02/23/2023 [facility] Comment on above: Expected: 12/24/2022, Expires: 3 Start: 12-24-2022 End: 02-23-2023 XR Chest 2 Views XR chest 2 views Imaging Routine Preoperative clearance Expected: 12/24/2022, Expires: 02/23/2023 [facility] Comment on above: Expected: 12/24/2022, Expires: 3 Start: 12-19-2022 Patient discharge [facility] Start: 12-19-2022 Patient referral [facility] Work Phone: Start: 12-18-2022 Referral to special forces weapons sergeant [facility] Start: 12-18-2022 Ambulation without limitation [facility] Start: 12-18-2022 Assessment of risk of venous thromboembolism [facility] Start: 12-18-2022 Insertion of catheter into peripheral vein [facility] Start: 12-18-2022 Oxygen therapy [facility] Start: 12-18-2022 Providing care according to standard [facility] Start: 12-18-2022 Admission procedure [facility] Start: 12-18-2022 Following clinical pathway protocol [facility] Start: 12-18-2022 End: 12-18-2022 [facility] Start: 12-12-2022 Screening for malignant neoplasm of breast Mammogram [facility] Start: 06-07-2022 Incentive spirometry [facility] Start: 06-07-2022 [facility] Start: 06-06-2022 Seizure precautions [facility] Start: 03-14-2022 Seizure precautions [facility] Start: 01-10-2022 Patient referral [facility] Work Phone: Start: 01-03-2022 Patient discharge [facility] Work Phone: Start: 01-02-2022 Care regimes management [facility] Work Phone: Start: 01-02-2022 Notification of physician [facility] Work Phone: Start: 01-02-2022 [facility] Work Phone: Start: 01-02-2022 Following clinical pathway protocol [facility] Work Phone: Start: 01-02-2022 Assessment of risk of venous thromboembolism [facility] Work Phone: Start: 01-02-2022 Catheterization of vein [facility] Work Phone: Start: 01-02-2022 Insertion of catheter into peripheral vein [facility] Work Phone: Start: 01-02-2022 Measuring intake and output [facility] Work Phone: Start: 01-02-2022 Providing care according to standard [facility] Work Phone: Start: 01-02-2022 Provision of activity privileges [facility] Work Phone: Start: 01-02-2022 [facility] Work Phone: Start: 01-02-2022 Admission procedure [facility] Work Phone: Start: 11-28-2021 US.doppler Lower extremity vein [facility] Work Phone: Start: 10-25-2021 [facility] Work Phone: Start: 07-19-2021 COVID-19 Vaccine (4 - Booster for Moderna series) COVID-19 Vaccine (4 - Booster for Moderna series) [facility] Start: 07-19-2021 COVID-19 Vaccine (4 - Moderna series) COVID-19 Vaccine (4 - Moderna series) [facility] Start: 01-17-2021 DTaP/Tdap/Td Vaccines (2 - Td or Tdap) DTaP/Tdap/Td Vaccines (2 - Td or Tdap) [facility] Start: 07-18-2011 Hepatitis B Vaccines (3 of 3 - 19+ 3-dose series) Hepatitis B Vaccines (3 of 3 - 19+ 3-dose series) [facility] Start: 07-18-2011 Hepatitis B Vaccines (3 of 3 - Risk 3-dose series) Hepatitis B Vaccines (3 of 3 - Risk 3-dose series) [facility] Start: 05-04-2007 Pneumococcal Vaccine: 65+ Years (2 - PCV) Pneumococcal Vaccine: 65+ Years (2 - PCV) [facility] Start: 2002 Zoster Vaccines (1 of 2) Zoster Vaccines (1 of 2) [facility] Start: 1970 Hepatitis C screening Hepatitis C Screening [facility] Start: 1964 Depression Screening Depression Screening [facility] Start: 1962 Diabetic foot examination Diabetes: Foot Exam [facility] Start: 1962 Glaucoma screening Diabetes: Retinopathy Screening [facility] Start: 1962 Preventive dental service Diabetes: Dental Exam [facility] Start: 1952 Hemoglobin A1c measurement Diabetes: Hemoglobin A1C [facility] Start: 1952 Lipid panel Lipid Panel [facility] Start: 1952 Medicare Advantage Annual Wellness Visit (AWV) Medicare Advantage Annual Wellness Visit (AWV) [facility] Start: 1952 Screening for malignant neoplasm of colon [facility] Start: 1952 Screening for osteoporosis Bone Density Scan [facility] Antibody to lupus La protein measurement [facility] Antibody to SS-A measurement [facility] Basic metabolic 2008 panel with ionized calcium - Serum or Plasma [facility] Basic metabolic 2008 panel with ionized calcium - Serum or Plasma [facility] Blood ammonia measurement [facility] Work Phone: Blood ammonia measurement [facility] Blood ammonia measurement [facility] Blood chemistry [facility] C reactive protein [Mass/volume] in Serum or Plasma [facility] CBC W Auto Different ial panel - Blood [facility] Complete blood count [facility] Work Phone: Complete blood count [facility] Comprehensive metabo lic 2000 panel - Serum or Plasma [facility] CT Abdomen and Pelvi s W contrast IV [facility] Cytoplasmic ANCA Screen [facility] DNA double strand Ab [Units/volume] in Serum [facility] DXA Bone [Mass/Area] Bone density [facility] Erythrocyte sedimentation rate [facility] Folate [Mass/volume] in Serum or Plasma [facility] Hemoglobin A1c/Hemoglobin.total in Blood [facility] Hemoglobin A1c/Hemoglobin.total in Blood [facility] Hemoglobin A1c/Hemoglobin.total in Blood [facility] Hepatic function panel [facility] Lipid 1996 panel - S ronnell or Plasma [facility] MG Breast - bilatera l Screening [facility] Work Phone: Natriuretic peptide. B prohormone N-Terminal [Mass/volume] in Serum or Plasma [facility] Patient Education [facility] Work Phone: Patient referral [facility] Work Phone: Radionuclide gastric emptying study [facility] Respiratory pathogen s DNA and RNA panel - Respiratory specimen by GERONIMO with probe detection [facility] Rheumatoid factor [Presence] in Serum [facility] Streptococcus pyogen es antigen assay Group A Streptococcus Rapid Screen [facility] Work Phone: Thiamine measurement [facility] Thyroid stimulating hormone measurement [facility] Troponin T.cardiac [Mass/volume] in Serum or Plasma by High sensitivity method [facility] Valproate [Mass/volu me] in Serum or Plasma [facility] Viral nucleic acid assay [facility] Vitamin B12 measurement [facility] End: 12-29-2022 XR Chest 2 Views [facility] Work Phone: Comment on above: Once for 1 Occurrences starting 12/30/19 23 until 12/29/2022 XR Shoulder GE 2 Views [facility] Work Phone: [facility] Immunizations Immunization Date Immunization Notes Care Provider Farzana martinez 02-09-2024 RSV Adult BiValent (Abrysvo) Dr. Mayda Garcia MD Work Phone: [facility] 02-04-2023 influenza, injectabl e, quadrivalent, preservative free Dr. Mayda Garcia Work Phone: [facility] 01-14-2023 Pneumococcal Vaccine PCV20 (Prevnar 20) Dr. Mayda Garcia Work Phone: [facility] 03-10-2022 influenza, injectabl e, quadrivalent, preservative free Dr. Mayda Garcia Work Phone: [facility] 03-10-2022 influenza, seasonal, injectable Dr. Mayda Garcia Work Phone: [facility] 03-10-2022 influenza virus vaccine, unspecified formulation Azam Rose MD Work Phone: [facility] 05-24-2021 Covid (Moderna) Dr. Yaron Garcia Work Phone: [facility] 08-09-2020 Covid (Moderna) Dr. Yaron Garcia Work Phone: [facility] 07-11-2020 Covid (Moderna) Dr. Yaron Garcia Work Phone: [facility] 02-10-2020 influenza, injectabl e, quadrivalent, preservative free Dr. Mayda Garcia Work Phone: [facility] 02-10-2020 influenza, seasonal, injectable Dr. Mayda Garcia Work Phone: [facility] 02-10-2020 Seasonal, quadrivale nt, recombinant, injectable influenza vaccine, preservative free Dr. Mayda Garcia Work Phone: [facility] 02-10-[address] Mayda Garcia Work Phone: [facility] 03-21-2018 influenza, injectabl e, quadrivalent, preservative free Dr. Mayda Garcia Work Phone: [facility] 03-21-2018 influenza, seasonal, injectable Dr. Mayda Garcia Work Phone: [facility] 03-21-2018 Seasonal, quadrivale nt, recombinant, injectable influenza vaccine, preservative free Dr. Mayda Garcia Work Phone: [facility] 03-03-2016 influenza, injectabl e, quadrivalent, preservative free Dr. Mayda Garcia Work Phone: [facility] 04-11-2015 influenza, injectabl e, quadrivalent, preservative free Dr. Mayda Garcia Work Phone: [facility] Payers Date Payer Category Payer Self-pay [id number] 2021 Medicare ANTHEM MEDICARE ADVANTAGE [facility] [id number] 2021-Present [address] [place] [address] Medicare O [id number] 2021 Unknown [id number] 2011 Medicare [id number] Medicare [id number] Medicare [id number] Unknown [id number] Unknown [id number] 2.16.840.1.993943.3.579.2.462 Unknown [id number] 2.16.840.1.064457.3.579.2.462 Unknown [id number] 2.16840.1.401633.3.579.2.462 Unknown [id number] 2.16.840.1.727584.3.579.2.462 Unknown [id number] 2..840.1.992070.3.579.2.462 Unknown [id number] 2.16.840.1.981244.3.579.2.462 Unknown [id number] 2.840.1.826120.3.579.2.462 Unknown [id number] 2.16.840.1.018928.3.579.2.462 Unknown [id number] 2.16.840.1.885541.3.579.2.462 Unknown [id number] 2.16.840.1.088093.3.579.2.462 Unknown [id number] 2.16.840.1.561671.3.579.2.462 Unknown [id number] 2.16840.1.738498.3.579.2.462 Unknown [id number] .16840.1.900408.3.579.2.462 Unknown [id number] 2.16.840.1.229795.3.579.2.462 Unknown [id number] 2.16.840.1.868061.3.579.2.462 Unknown [id number] 2.16.840.1.150845.3.579.2.462 Unknown [id number] 2.16.840.1.126535.3.579.2.462 Unknown [id number] 2.16.840.1.815086.3.579.2.462 Unknown [id number] 2.16.840.1.187859.3.579.2.462 Unknown [id number] 2.16.840.1.233807.3.579.2.462 Unknown [id number] 2.16.840.1.252014.3.579.2.462 Unknown [id number] 2.16840.1.384112.3.579.2.462 Unknown [id number] 2.16840.1.050148.3.579.2.462 Unknown [id number] 2.840.1.285506.3.579.2.462 Unknown [id number] 2.840.1.725620.3.579.2.462 Unknown [id number] 2.840.1.035350.3.579.2.462 Unknown [id number] 2.840.1.698481.3.579.2.462 Unknown [id number] 2.16840.1.056994.3.579.2.462 Unknown [id number] 2.16840.1.287540.3.579.2.462 Unknown [id number] 2.840.1.203721.3.579.2.462 Unknown [id number] 2.16840.1.936800.3.579.2.462 Unknown [id number] 2.16.840.1.440191.3.579.2.462 Unknown [id number] 2.16.840.1.241513.3.579.2.462 Unknown [id number] 2.16.840.1.552820.3.579.2.462 Unknown [id number] 2.16840.1.864876.3.579.2.462 Unknown [id number] 2.16.840.1.559643.3.579.2.462 Social History Date Type Detail Facility Start: 10-25-2021 End: 08-19-2023 Tobacco smoking status NHIS Unknown if ever smoked [facility] Start: 09-26-2020 Rare [facility] Start: 09-26-2020 None [facility] Start: 09-26-2020 Alone [facility] Start: 09-26-2020 Non-smoker [facility] Start: 1950 Sex Assigned At Female [facility] Start: 12-22-2022 End: 11-13-2024 Tobacco smoking status NHIS Never smoked tobacco [facility] Start: 12-22-2022 Tobacco use and exposure Smokeless tobacco non-user [facility] Start: 12-23-2022 Alcohol intake Lifetime non-d domenica (finding) [facility] Start: 12-22-2022 End: 01-19-2023 History of Social function [facility] Start: 12-22-2022 End: 01-19-2023 Tobacco use panel [facility] Start: 1950 Sex Assigned At Not on file S [facility] Start: 12-13-2022 End: 01-19-2023 Exposure to SARS-CoV-2 (event) Not sure [facility] Start: 12-29-2022 End: 01-19-2023 Alcohol intake Current drinker of alcohol (finding) [facility] Start: 12-29-2022 Alcohol Comment once a year [facility] Within the last year , have you been afraid of your partner or ex-partner? No [facility] Start: 07-14-2024 End: 07-15-2024 Sex Female (finding) [facility] Medical Equipment Procedure Code Equipment Code [...] Test Strip) strip Start: 02-07-2020 End: 07-17-2021 [facility] n lancets Start: 11-11-2019 End: 11-11-2019 Blood Sugar Diagnostic (True Metrix Glucose Test Strip) strip Start: 07-17-2021 Blood Sugar Diagnostic (True Metrix Glucose Test Strip) strip Start: 02-07-2020 End: 02-07-2020 Blood Sugar Diagnostic (True Metrix Glucose Test Strip) strip Start: 02-07-2020 End: 07-17-2021 [facility] n lancets Start: 11-11-2019 End: 11-11-2019 Blood Sugar Diagnostic (True Metrix Glucose Test Strip) strip Start: 07-17-2021 Blood Sugar Diagnostic (True Metrix Glucose Test Strip) strip Start: 02-07-2020 End: 02-07-2020 Blood Sugar Diagnostic (True Metrix Glucose Test Strip) strip Start: 02-07-2020 End: 07-17-2021 [facility] n lancets Start: 11-11-2019 End: 11-11-2019 Blood Sugar Diagnostic (True Metrix Glucose Test Strip) strip Start: 07-17-2021 Blood Sugar Diagnostic (True Metrix Glucose Test Strip) strip Start: 02-07-2020 End: 02-07-2020 Blood Sugar Diagnostic (True Metrix Glucose Test Strip) strip Start: 02-07-2020 End: 07-17-2021 [facility] n lancets Start: 11-11-2019 End: 11-11-2019 Blood Sugar Diagnostic (True Metrix Glucose Test Strip) strip Start: 07-17-2021 Blood Sugar Diagnostic (True Metrix Glucose Test Strip) strip Start: 02-07-2020 End: 02-07-2020 Blood Sugar Diagnostic (True Metrix Glucose Test Strip) strip Start: 02-07-2020 End: 07-17-2021 [facility] n lancets Start: 11-11-2019 End: 11-11-2019 Blood Sugar Diagnostic (True Metrix Glucose Test Strip) strip Start: 07-17-2021 Blood Sugar Diagnostic (True Metrix Glucose Test Strip) strip Start: 02-07-2020 End: 02-07-2020 Blood Sugar Diagnostic (True Metrix Glucose Test Strip) strip Start: 02-07-2020 End: 07-17-[address] [facility] lanc[facility] Start: 11-11-2019 End: 11-11-2019 Blood Sugar Diagnostic (True Metrix Glucose Test Strip) strip Start: 07-17-2021 Blood Sugar Diagnostic (True Metrix Glucose Test Strip) strip Start: 02-07-2020 End: 02-07-2020 Blood Sugar Diagnostic (True Metrix Glucose Test Strip) strip Start: 02-07-2020 End: 07-17-[address] [facility] [place]anc[facility] Start: 11-11-2019 End: 11-11-2019 Blood Sugar Diagnostic (True Metrix Glucose Test Strip) strip Start: 07-17-2021 Blood Sugar Diagnostic (True Metrix Glucose Test Strip) strip Start: 02-07-2020 End: 02-07-2020 Blood Sugar Diagnostic (True Metrix Glucose Test Strip) strip Start: 02-07-2020 End: 07-17-[address] [facility] [place] lanc[facility] Start: 11-11-2019 End: 11-11-2019 Blood Sugar Diagnostic (True Metrix Glucose Test Strip) strip Start: 07-17-2021 Lancets (Bd Ultr a Fine Lancets) 33 gauge misc Start: 04-02-2022 Blood Sugar Diagnostic (True Metrix Glucose Test Strip) strip Start: 02-07-2020 End: 02-07-2020 Blood Sugar Diagnostic (True Metrix Glucose Test Strip) strip Start: 02-07-2020 End: 07-17-[address] [facility] [place] [facility]anc[facility] Start: 11-11-2019 End: 11-11-2019 Blood [...] Strip) strip Start: 02-07-2020 End: 07-17-2021 [facility] lancets Start: 11-11-2019 End: 11-11-2019 Blood Sugar Diagnostic (True Metrix Glucose Test Strip) strip Start: 07-17-2021 Lancets (Bd Ultr a Fine Lancets) 33 gauge misc Start: 04-02-2022 Blood Sugar Diagnostic (True Metrix Glucose Test Strip) strip Start: 02-07-2020 End: 02-07-2020 Blood Sugar Diagnostic (True Metrix Glucose Test Strip) strip Start: 02-07-2020 End: 07-17-2021 [facility] thi n lancets Start: 11-11-2019 End: 11-11-2019 Blood Sugar Diagnostic (True Metrix Glucose Test Strip) strip Start: 07-17-2021 Lancets (Bd Ultr a Fine Lancets) 33 gauge misc Start: 04-02-2022 Blood Sugar Diagnostic (True Metrix Glucose Test Strip) strip Start: 02-07-2020 End: 02-07-2020 Blood Sugar Diagnostic (True Metrix Glucose Test Strip) strip Start: 02-07-2020 End: 07-17-2021 [facility] thi n lancets Start: 11-11-2019 End: 11-11-2019 Blood Sugar Diagnostic (True Metrix Glucose Test Strip) strip Start: 07-17-2021 Lancets (Bd Ultr a Fine Lancets) 33 gauge misc Start: 04-02-2022 Blood Sugar Diagnostic (True Metrix Glucose Test Strip) strip Start: 02-07-2020 End: 02-07-2020 Blood Sugar Diagnostic (True Metrix Glucose Test Strip) strip Start: 02-07-2020 End: 07-17-2021 [facility] thi n lancets Start: 11-11-2019 End: 11-11-2019 Blood Sugar Diagnostic (True Metrix Glucose Test Strip) strip Start: 07-17-2021 Lancets (Bd Ultr a Fine Lancets) 33 gauge misc Start: 04-02-2022 Blood Sugar Diagnostic (True Metrix Glucose Test Strip) strip Start: 02-07-2020 End: 02-07-2020 Blood Sugar Diagnostic (True Metrix Glucose Test Strip) strip Start: 02-07-2020 End: 07-17-2021 [facility] n lancets Start: 11-11-2019 End: 11-11-2019 Blood Sugar Diagnostic (True Metrix Glucose Test Strip) strip Start: 07-17-2021 Lancets (Bd Ultr a Fine Lancets) 33 gauge misc Start: 04-02-2022 Blood Sugar Diagnostic (True Metrix Glucose Test Strip) strip Start: 02-07-2020 End: 02-07-2020 Blood Sugar Diagnostic (True Metrix Glucose Test Strip) strip Start: 02-07-2020 End: 07-17-2021 [facility] n lancets Start: 11-11-2019 End: 11-11-2019 Blood Sugar Diagnostic (True Metrix Glucose Test Strip) strip Start: 07-17-2021 Lancets (Bd Ultr a Fine Lancets) 33 gauge misc Start: 04-02-2022 Blood Sugar Diagnostic (True Metrix Glucose Test Strip) strip Start: 02-07-2020 End: 02-07-2020 Blood Sugar Diagnostic (True Metrix Glucose Test Strip) strip Start: 02-07-2020 End: 07-17-2021 [facility] n lancets Start: 11-11-2019 End: 11-11-2019 Blood Sugar Diagnostic (True Metrix Glucose Test Strip) strip Start: 07-17-2021 Lancets (Bd Ultr a Fine Lancets) 33 gauge misc Start: 04-02-2022 Blood Sugar Diagnostic (True Metrix Glucose Test Strip) strip Start: 02-07-2020 End: 02-07-2020 Blood Sugar Diagnostic (True Metrix Glucose Test Strip) strip Start: 02-07-2020 End: 07-17-2021 [facility] n lancets Start: 11-11-2019 End: 11-11-2019 [...] Strip) strip Start: 07-17-2021 End: 06-17-2023 [facility] thi n lancets Start: 11-11-2019 End: [...] Strip) strip Start: 07-17-2021 End: 06-17-2023 [facility] thi n lancets Start: 11-11-2019 End: [...] Strip) strip Start: 07-17-2021 End: 06-17-2023 [facility] thi n lancets Start: 11-11-2019 End: [...] Strip) strip Start: 07-17-2021 End: 06-17-2023 [facility] n lancets Start: 11-11-2019 End: 11-11-2019 [...] Strip) strip Start: 07-17-2021 End: 06-17-2023 [facility] thi n lancets Start: 11-11-2019 End: [...] Strip) strip Start: 07-17-2021 End: 06-17-2023 [facility] thi n lancets Start: 11-11-2019 End: [...] Strip) strip Start: 07-17-2021 End: 06-17-2023 [facility] n lancets Start: 11-11-2019 End: 11-11-2019 [...] Strip) strip Start: 07-17-2021 End: 06-17-2023 [facility] thi n lancets Start: 11-11-2019 End: [...] Strip) strip Start: 07-17-2021 End: 06-17-2023 [facility] n lancets Start: 11-11-2019 End: 11-11-2019 Lancets (Bd Ultr a Fine Lancets) 33 gauge misc Start: 04-02-2022 End: 06-17-2023 Goals Date Patient Goal Desired Activity /State Functional Status Date Assessment Result Facility 11-14-2024 Functional status Ambulates [facility] Work Phone: 01-26-2023 Functional status Chair [facility] Work Phone: 01-24-2023 Functional status Well [facility] Work Phone: 12-19-2022 Functional status Bedrest [facility] Work Phone: 01-03-2022 Functional status Ambulates [facility] Work Phone: 01-03-2022 Functional status None [facility] Work Phone: Mental Status Date Assessment Result Facility 11-14-2024 Cognitive function Voice/Name [facility] Work Phone: 11-13-2024 Cognitive function Awake;Alert;A ppropriate;Follow s Commands [facility] Work Phone: 09-16-2024 Cognitive function Voice/Name [facility] Work Phone: 07-15-2024 Cognitive function Awake;Alert;A ppropriate;Follow s Commands [facility] Work Phone: 01-26-2023 Cognitive function Voice/Name [facility] Work Phone: 12-19-2022 Cognitive function Voice/Name [facility] Work Phone: 12-18-2022 Cognitive function Level Of Cons ciousness Awake;Alert [facility] Work Phone: 08-13-2022 Cognitive function Voice/Name [facility] Work Phone: 06-07-2022 Cognitive function Level Of Cons ciousness Awake;Alert;Appropriate [facility] Work Phone: 06-06-2022 Cognitive function Awake;Alert;A ppropriate;Follow s Commands [facility] Work Phone: 03-14-2022 Cognitive function Voice/Name [facility] Work Phone: 01-03-2022 Cognitive function Voice/Name [facility] Work Phone: 12-17-2021 Cognitive function Level Of Cons ciousness Awake;Alert;Appropriate [facility] Work Phone: 10-25-2021 Cognitive function Awake;Drowsy [facility] Work Phone: Clinical Notes 06-07-2022 to 11-14-2024 Note Date & Type Note Facility 11-14-2024 Note [facility] 11-14-2024 Progress note Note Date/Time November 14, 2024 12:28pm [facility] Medical Records Department [address] [place] [address] Progress Note - Hospitalist 11/14/24 1008 MR#: [id number] Acct: [id number] Name: LACY ALVARADO Rep #:[id number] 1 : 1950 73 From: Maurilio Bradford MD PCP: Dr. Mayda Garcia MD Status:A DM DELFIN Location: [place] [address] Reason for Visit Chief Complaint: chest pain Subjective Subjective Patient is a 73-year-old lady admitted with chest pain Objective Data Objective Data Vital Signs: Vital Signs Temp Pulse Resp BP Pulse Ox O2 Del Method 97.0 F L 76 12 134/74 H 100 Room Air 11/14/24 08:37 11/14/24 08:45 11/14/24 08:37 11/14/24 08:37 11/14/24 08:37 11/14/24 09:53 Oxygen Delivery Method Room Air Weight: 77.2 kg Body Mass Index (BMI) 31.1 Intake & Output: Intake and Output for Last 24 Hours 11/12/24 11/13/24 11/14/24 23:59 23:59 23:59 Intake Total 467.5 / 467.5 0 / 0 Output Total 800 / 800 Balance 467.5 / 467.5 -800 / -800 Lab / Micro Data 11/14/24 05:21 11/14/24 05:21 Labs: Laboratory Results - last 24 hr 11/13/24 16:05: WBC 4.6, RBC 3.41 L, Hgb 11.1 L, Hct 33.3 L, MCV 97.7, MCH 32.6 H, MCHC 33.3, RDW Std Deviation 50.8 H, RDW Coeff of [place] 14.2, Plt Count 224, MPV 11.5, Immature Gran % (Auto) 0.400, Neut % (Auto) 55.5, Lymph % (Auto) 35.9,[place] % (Auto) 6.3, Eos % (Auto) 1.7, Baso % (Auto) 0.2, Absolute Neuts (auto) 2.6, Absolute Lymphs (auto) 1.65, Nucleated RBC % 0, D-Dimer Quant (PE/DVT) Cancelled, Sodium 140, Potassium 4.5, Chloride 104, Carbon Dioxide 23.9, Anion Gap 12, BUN 21 H, Creatinine 0.82, Est GFR (MDRD) Non-Af 77, BUN/Creatinine Ratio 25.2 H, Glucose 126 H, Hemoglobin A1c 6.6 H, Calcium 9.0, Troponin T High Sens 9 D 11/13/24 18:15: D-Dimer Quant (PE/DVT) 0.27 11/13/24 18:20: Troponin T Hi Sens 2 Hr 18 H 11/13/24 20:04: Troponin T Hi Sens 4Hr 10, NT pro BNP II 77, TSH 3.680 11/14/24 05:21: WBC 5.6, RBC 3.54 L, Hgb 11.5 L, Hct 34.3 L, MCV 96.9, MCH 32.5 H, MCHC 33.5, RDW Std Deviation 50.5 H, RDW Coeff of [place] 14.1, Plt Count 211, MPV 10.9, Sodium 142, Potassium 4.4, Chloride 104, Carbon Dioxide 26.0, Anion Gap 11, BUN 20 H, Creatinine 1.11, Estim Creat Clear Calc 44.72 L, Est GFR (MDRD) Non-Af 53 L, BUN/Creatinine Ratio 17.6, Glucose 111 H, Calcium 8.8, Triglycerides 85, Cholesterol 230 H, LDL Cholesterol, Calc 162, VLDL [id number], HDL Cholesterol 52, Cholesterol/HDL Ratio 4.47 Micro: Microbiology 11/13/24 22:25 Mucosa - Nose Respiratory Panel (PCR) - Final Radiography Diagnostic Testing: Radiology Impression Chest X-Ray 11/13/24 17:17 IMPRESSION: Mildly prominent interstitial markings could be the result of hypoventilatory change, pulmonary edema, or atypical infection. Reading Location: [id number] Rhythm Strip Rhythm Strip: Sinus Rhythm Rate: 75 Physical Exam Narrative GENERAL: cooperative HEENT: Atraumatic; normocephalic EYES; Anicteric, Normal Conjunctiva NECK; supple, normal thyroid, RESPIRATORY: Diminished to auscultation CARDIOVASCULAR: Regular S1 S2, GI: soft, normoactive bowel sounds, : No Renal angle tenderness; EXTREMITIES: No edema, no clubbing, MUSCULOSKELETAL: no muscle wasting NEURO: Awake; no lateralizing signs. SKIN: No Rash PSYCH; Flat affect Assessment & Plan Assessment/Plan (1) Chest pain: QUALIFIERS: Chest pain type: unspecified Qualified Code(s): R07.9- Chest pain, unspecified PLAN: Plan Patient is a 73-year-old female who presented to [facility] ED on 11/13/2024 with chest pain. 1. Chest pain ? Patient was placed on a monitored bed [place] ruled out with serial cardiac enzymes. Patient has history of CAD with previous stent placement and CABG was kept n.p.o. and consultation placed to cardiology decision regarding subsequent evaluation left heart cath versus stress test defer to cardiology. Patient was seen in consultation by cardiology recommendation was made for patient to undergo subsequent evaluation with a nuclear stress 3. Coronary artery disease ? With previous stent and CABG. Patient remains on guideline directed medical therapy 3. Hypertension ? Blood pressure controlled, home medications continued with dose adjustment as needed 4. Dyslipidemia ?Patient is on statin therapy, continued at home dose 5. Rheumatoid arthritis ? Patient is on hydroxychloroquine 6. Seizure disorder ? Patient is on valproic acid continue with home dose 7. Diabetes mellitus type 2 with complications including peripheral neuropathy ? Patient was placed on Accu-Cheks AC and at bedtime with sliding scale coverage. 8. Diabetic polyneuropathy ? Patient is on gabapentin 9. Obesity 1 with BMI of 31.1 ? Weight loss advised 10. Anemia ? Secondary to chronic disorder monitoring H&H and transfuse if patient becomes symptomatic or hemoglobin falls below 7 11. DVT prophylaxis ? Subcu Lovenox Charges/Coding Visit Charges Inpatient E&M: 78620 Subs Hosp L2 11/14/24 1228 <Electronically signed by Maurilio Bradford MD> Cosigner Signature (if applicable): CC: ~ Signed [facility] Work Phone: 1(816) 367-385407-14-2025 Hospital Discharge instructionsAdditional Instructions Date of Discharge: 11/14/24[facility] Work Phone: 1(761) 395-393907-14-2025 Consult note Author Aleksandr Salinas [facility] Note Date/Time November 14, 2024 8:18 am [facility] Medical Records Department [address] [place] [address] Consultation - Cardiology 11/14/24 0801 MR#: [id number] Acct: [id number] Name: LACY ALVARADO Rep #:[id number] 1 : 1950 73 From: Aleksandr Salinas MD PCP: Dr. Mayda Garcia MD Status:A DM DELFIN Location: [place] [address] Assessment & Plan Assessment/Plan (1) Chest pain: QUALIFIERS: Chest pain type: unspecified Qualified Code(s): R07.9- Chest pain, unspecified PLAN: Patient's chest discomfort been ongoing since at least September 2024. And potentially ever since her surgery. The patient came in yesterday because it was more intense and had been. 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 Troponin enzymes were 01/19/10. ECG showed no acute ischemic changes. I do not feel that this represents an acute coronary syndrome. But I would recommend that we proceed with pharmacologic nuclear stress testing. The patient is not able to walk adequately to do a adequate treadmill stress test. (2) Type 2 diabetes mellitus: QUALIFIERS: Diabetes mellitus retirement insulin use: without retirement use Diabetes mellitus complication status: with other specified complication Qualified Code(s): E11.69 - Type 2 diabetes mellitus with other specified complication PLAN: Hemoglobin A 1 6 was 6.6. This is managed through the primary service. (3) History of coronary artery bypass graft: PLAN: Patient status post remote GARCIA to the LAD, vein graft to the OM branch ofthe circumflex vein graft to diagonal branch of the LAD and vein graft to the PDA of the right coronary artery December 2022 at [facility] by Dr. Rose. The patient spent 10 days in recovery and extended care facility due to her ongoing rheumatoid arthritis and pain syndromes. (4) Essential (primary) hypertension: PLAN: Patient's blood pressures controlled in the hospital this morning. She should continue her current medical therapy. (5) Hyperlipidemia: QUALIFIERS: Hyperlipidemia type: pure hypercholesterolemia Qualified Code(s): E78.00 - Pure hypercholesterolemia, unspecified; E78.0 - Pure hypercholesterolemia PLAN: Patient's lipids total cholesterol was 230 triglycerides 85 LDL 162 and HDL 52. The patient is on atorvastatin 80 mg daily. PLAN: Plan 1. Will obtain pharmacologic nuclear stress test to rule out ischemia. 2. Will defer further pain management and treatment of her rheumatoid to the primary service and her primary care physicians. HPI Consult Data Date of Consult: 11/14/24 HPI Narrative Reason for Consultation: Chest pain HPI Narrative: LACY ALVARADO, is a 73 F who presents with a sharp left-sided chest pain that radiated around to the left side of her chest and into her arm. She says this reminds her of what she had prior to her bypass graft surgery. However this hasbeen ongoing since early September 2024 was just much more intense yesterday after confucianist when she was sitting at home. Patient has been evaluated in September in the emergency department with negative enzymes. She has been evaluated in the [facility] office and felt thiswas related to her surgical incision site and GARCIA harvest. Patient's initial enzymes in the emergency department yesterday was 9 delta was 18 and the third set was down to 10. The patient is diabetic she does have hyperlipidemia her proBNP was 77 which was negative and her ECG showed normal sinus rhythm was within normal limits and no change on the delta ECG in 24 hours. Patient's bypass graft surgery was done December 2022. She received a GARCIA to the LAD vein graft to the OM branch of the circumflex a vein graft to the first diagonal branch and a vein graft to the PDA of the right coronary artery. Subsequently the patient has had problems with her surgical incision site and is seeing dermatology due to keloid formation and pain. The patient was evaluated September 16 was found to have negative troponins in the emergency department and normal BNP. This was felt to be related to postoperative changes. The current presenting complaint is very similar. The patient has a history of recurring pains she has been on oxycodone, gabapentin, hydrocodone, ibuprofen, and hydroxychloroquine for her rheumatoid arthritis. [facility] Medical History Keloid scar of skin Vertigo Chest pain Dyspnea on exertion Wears [...] in nonobese Obesity Urinary frequency Conversion disorder Non-toxic goiter Essential (primary) hypertension RIGHT FOOT HEEL SPUR Atherosclerotic heart disease of [place] coronary artery without angina pectoris Rheumatoid arthritis Diabetes type 2, controlled Hives Seasonal allergies Hyperlipidemia Chronic diastolic CHF (congestive heart failure) Home Medications ?Medication ?Instructions ?Recorded ?Last Taken ?Type multivitamin 1 tab PO DAILY vitamin 05/2011/12/24 History blood-glucose meter (True Metrix #1 ea 02/03/20 Unknow n Rx Air Glucose Meter kit) calcium citrate 200 mg PO DAILY supplement 0 05/21/20 11/12/24 History disability placard #1 ea 06/27/20 Unknown Rx aspirin 81 mg tablet,delayed 81 mg PO DAILY heart 08/0211/13/24 History release (Adult Low Dose Aspirin) blood sugar diagnostic (True #100 ea 06/17/23 Unknown Rx Metrix Glucose Test Strip) lancets 33 gauge #100 ea 06/17/23 Unknown Rx oxycodone 5 mg tablet 5 mg PO Q4H PRN PRN Pain Sco re 11/18/23 Unknown Rx 4-10 3 days #20 tabs Handicap Placard #1 ea 01/07/24 Unknown Rx denosumab 60 mg/mL subcutaneous 60 mg subcut [id number] bone health 01/19/24 09/13/24 Rx syringe (Prolia) #1 mL gabapentin 300 mg capsule 300 mg PO QHS #30 caps 02/1311/12/24 Rx metoprolol tartrate 25 mg tablet 25 mg PO QDAY heart # 90 tabs 04/19/24 11/12/24 Rx hydrocodone-acetaminophen 5-325mg 1 tab PO Q6H PRN PRN Pain 3 days 07/14/24 Unknown Rx 5mg-325mg #10 TABLETS ibuprofen 600 mg tablet 600 mg PO Q6H PRN PRN pain # 20 07/14/24 Unknown Rx TABLETS hydroxychloroquine 200 mg tablet See Rx Instructions . Route 09/21/24 11/12/24 Rx .COMPLEX immunosuppressant #180 tabs sitagliptin phosphate 100 mg See Rx Instructions .Rout e 09/21/24 11/12/24 Rx tablet (Januvia) .COMPLEX diabetes #90 tabs atorvastatin 80 mg tablet 80 mg PO QHS cholesterol 11/12/24 History neomycin 3.5 mg/g-polymyxin B 0.5 inch ophthalmic (eye ) BID 09/28/24 11/06/24 History 10,000 unit/g-dexameth 0.1 % eye oint divalproex 500 mg tablet,delayed 500 mg .Route .COMPLE X seizures 11/07/24 11/12/24 Rx release (Depakote) #90 tabs rosuvastatin 40 mg tablet 40 mg PO DAILY 11/13/2411/01 History Allergy/AdvReac Type Severity Reaction Status Date / Time prednisone AdvReac Severe Hives Verified 11/13/24 21:59 Family History (Reviewed 09/28/24 @ 12:57 by Vanita Venegas DIRECTOR OF REGULATORY AFFAIRS, DIRECTOR OF REGULATORY AFFAIRS-C) Grandmother Alcoholism Cancer Arthritis Mother Alcoholism Diabetes blood clots Hypertension Grandfather Heart disease Sister Thyroid disorder Other Breast cancer Cervical cancer Colon cancer Surgical History History of coronary artery bypass graft History of cardiac catheterization History of left heart catheterization (09/20/18) History of coronary artery stent placement (03/22/18) History of carpal tunnel surgery History of section H/O: hysterectomy Social History (Reviewed 09/28/24 @ 12:57 by Vanita Venegas DIRECTOR OF REGULATORY AFFAIRS, DIRECTOR OF REGULATORY AFFAIRS-C) household members: none housing: apartment Smoking Status: Never smoker second hand exposure: No alcohol intake: current alcohol intake frequency: holidays/special occasions only substance use type: does not use what type of physical activity do you participate in: none ROS Constitutional Constitutional: Reports as per HPI Eyes Eyes: Reports systems reviewed and no addt'l complaints, except as documented ENT HEENT: Reports systems reviewed and no addt'l complaints, except as documented Cardiovascular Cardiovascular: Reports as per HPI Respiratory/Chest Respiratory/Chest: Reports as per HPI Gastrointestinal Gastrointestinal: Reports systems reviewed and no addt'l complaints, except as documented Genitourinary Genitourinary: Reports systems reviewed and no addt'l complaints, except as documented Musculoskeletal Musculoskeletal: Reports systems reviewed and no addt'l complaints, except as documented Integumentary Integumentary: Reports systems reviewed and no addt'l complaints, except as documented Neurologic Neurologic: Reports systems reviewed and no addt'l complaints, except as documented Psychiatric Psychiatric: Reports systems reviewed and no addt'l complaints, except as documented Endocrine Endocrinology: Reports systems reviewed and no addt'l complaints, except as documented Hematologic/Lymphatic Hematologic/Lymphatic: Reports systems reviewed and no addt'l complaints, exceptas documented Allergic/Immunologic Allergic/Immunologic: Reports systems reviewed and no addt'l complaints, except as documented Physical Exam Const alert and oriented x3 HEENT normocephalic Eyes EOMs intact bilaterally Neck no carotid bruits Chest Chest Narrative: Tenderness to palpation of the left side of the chest and midsternal area just with light touch. Chest: midline sternotomy incision Resp normal respiratory effort and clear to auscultation bilaterally Cardio Rate: regular rate Rhythm: regular rhythm Heart Sounds: S1 normal and S2 normal; Negative for click, gallop or murmur GI normal to inspection, nondistended, normoactive bowel sounds Extremity General Extremity: edema bilateral lower extremity Details: trace Neuro Neuro Narrative: Alert and oriented x 3 Psych mental status grossly normal Risk Stratification Risk Stratification Applicable: Yes Age >/= 65: Yes >/= 3 CAD Risk Factors (HTN, HLD, DM, family hx of CAD, or current smoker): Yes Aspirin Use in the Past 7 Days: Yes Severe Angina (>/= episodes in 24 hours): No EKG ST Changes >/= 0.5mm: No Positive Cardiac Marker: No DONYA Risk Stratification Score: 3 DONYA % Risk: 13% Risk Charges/Coding Visit Charges Inpatient E&M: 39799 Init Hosp L2 Objective Data Vital Signs: Vital Signs Temp Pulse Resp BP Pulse Ox O2 Del Method 97.0 F L 73 16 120/70 96 Room Air 11/14/24 03:05 11/14/24 03:05 11/14/24 03:05 11/14/24 03:05 11/14/24 03:05 11/14/24 07:30 Oxygen Delivery Method Room Air Weight: 170 lb 3.15 oz Body Mass Index (BMI) 31.1 Intake & Output: Intake and Output for Last 24 Hours 11/12/24 11/13/24 11/14/24 23:59 23:59 23:59 Intake Total 467.5 / 467.5 Balance 467.5 / 467.5 Lab / Micro Data Attestation: I reviewed the patient's lab results. 11/14/24 05:21 11/14/24 05:21 Labs: Laboratory Results - last 24 hr 11/13/24 16:05: WBC 4.6, RBC 3.41 L, Hgb 11.1 L, Hct 33.3 L, MCV 97.7, MCH 32.6 H, MCHC 33.3, RDW Std Deviation 50.8 H, RDW Coeff of [place] 14.2, Plt Count 224, MPV 11.5, Immature Gran % (Auto) 0.400, Neut % (Auto) 55.5, Lymph % (Auto) 35.9,[place] % (Auto) 6.3, Eos % (Auto) 1.7, Baso % (Auto) 0.2, Absolute Neuts (auto) 2.6, Absolute Lymphs (auto) 1.65, Nucleated RBC % 0, D-Dimer Quant (PE/DVT) Cancelled, Sodium 140, Potassium 4.5, Chloride 104, Carbon Dioxide 23.9, Anion Gap 12, BUN 21 H, Creatinine 0.82, Est GFR (MDRD) Non-Af 77, BUN/Creatinine Ratio 25.2 H, Glucose 126 H, Hemoglobin A1c 6.6 H, Calcium 9.0, Troponin T High Sens 9 D 11/13/24 18:15: D-Dimer Quant (PE/DVT) 0.27 11/13/24 18:20: Troponin T Hi Sens 2 Hr 18 H 11/13/24 20:04: Troponin T Hi Sens 4Hr 10, NT pro BNP II 77, TSH 3.680 11/14/24 05:21: WBC 5.6, RBC 3.54 L, Hgb 11.5 L, Hct 34.3 L, MCV 96.9, MCH 32.5 H, MCHC 33.5, RDW Std Deviation 50.5 H, RDW Coeff of [place] 14.1, Plt Count 211, MPV 10.9, Sodium 142, Potassium 4.4, Chloride 104, Carbon Dioxide 26.0, Anion Gap 11, BUN 20 H, Creatinine 1.11, Estim Creat Clear Calc 44.72 L, Est GFR (MDRD) Non-Af 53 L, BUN/Creatinine Ratio 17.6, Glucose 111 H, Calcium 8.8, Triglycerides 85, Cholesterol 230 H, LDL Cholesterol, Calc 162, VLDL [id number], HDL Cholesterol 52, Cholesterol/HDL Ratio 4.47 Micro: Microbiology 11/13/24 22:25 Mucosa - Nose Respiratory Panel (PCR) - Final Rhythm Strip Rhythm Strip: Sinus Rhythm Rate: 75 Cardiology Labs/Tests 11/13/24 16:05: WBC 4.6, RBC 3.41 L, Hgb 11.1 L, Hct 33.3 L, MCV 97.7, MCH 32.6 H, MCHC 33.3, Plt Count 224, MPV 11.5, Immature Gran % (Auto) 0.400, Neut % (Auto) 55.5, Lymph % (Auto) 35.9, [place] % (Auto) 6.3, Eos % (Auto) 1.7, Baso % (Auto) 0.2, Absolute Neuts (auto) 2.6, Nucleated RBC % 0, D-Dimer Quant (PE/DVT)Cancelled, Sodium 140, Potassium 4.5, Chloride 104, Carbon Dioxide 23.9, Anion Gap 12, BUN 21 H, Creatinine 0.82, Est GFR (MDRD) Non-Af 77, BUN/Creatinine Ratio 25.2 H, Glucose 126 H, Hemoglobin A1c 6.6 H, Calcium 9.0 11/13/24 18:15: D-Dimer Quant (PE/DVT) 0.27 11/14/24 05:21: WBC 5.6, RBC 3.54 L, Hgb 11.5 L, Hct 34.3 L, MCV 96.9, MCH 32.5 H, MCHC 33.5, Plt Count 211, MPV 10.9, Sodium 142, Potassium 4.4, Chloride 104, Carbon Dioxide 26.0, Anion Gap 11, BUN 20 H, Creatinine 1.11, Est GFR (MDRD) Non-Af 53 L, BUN/Creatinine Ratio 17.6, Glucose 111 H, Calcium 8.8, Triglycerides 85, Cholesterol 230 H, VLDL Cholesterol 17, HDL Cholesterol 52, Cholesterol/HDL Ratio 4.47 Rhythm: EKG: ECHO: Stress Test: Cardiac Cath: PCI: CT Surgery: Holter monitor: EPS: PPM: CXR: Chest CT Scan: Radiography Diagnostic Testing: Radiology Impression Chest X-Ray 11/13/24 17:17 IMPRESSION: Mildly prominent interstitial markings could be the result of hypoventilatory change, pulmonary edema, or atypical infection. Reading Location: [place] 11/14/24 0818 <Electronically signed by Aleksandr Salinas MD> Cosigner Signature (if applicable): CC: Dr. Mayda Garcia MD~ Signed [facility] Work Phone: 1(296) 586-572207-14-2025 Discharge summary Author Turner Armendariz [facility] Note Date/Time November 13, 2024 11:[address] [facility] Medical Records Department [address] [place] [address] Emergency Department Summary 11/13/24 MR#: [id number] Acct: [id number] Name: LACY ALVARADO Rep #:[id number] : 1950 73 From: Turner Armendariz DO PCP: Dr. Mayda Garcia MD Status:A DM DELFIN Location: [address] History of Present Illness Chief Complaint: Chest Pain Detail of Chief Complaint: Chest pain Informant: patient Narrative Narrative: Patient presents to the emergency department complaint chest pain. She presentsvia EMS. She presents from home. She states that she had just gotten home [place] and was sitting when she developed sudden onset of sharp pain beneath herleft breast that radiated to her back and into her left arm. This pain remains. Patient states the pain reminded her of a year ago when she required four-vessel CABG at [facility]. Patient rates her pain an 8 out of 10 currently. She states the pain is worse with deep breath. She is currently not anticoagulated. She denies recent travel or surgery. She denies recent illness. Patient states the pain made her nauseated and she was sweaty. [facility] Medical History (Updated 11/13/24 @ 19:[address] Turner Armendariz DO) Keloid scar of skin Vertigo Chest pain Dyspnea on exertion Wears [...] in nonobese Obesity Urinary frequency Conversion disorder Non-toxic goiter Essential (primary) hypertension RIGHT FOOT HEEL SPUR Atherosclerotic heart disease of [place] coronary artery without angina pectoris Rheumatoid arthritis [...] 06/17/23 Unknown Rx Metrix Glucose Test Strip) lancets 33 gauge #100 ea 06/17/23 Unknown Rx methotrexate sodium 2.5 mg tablet 12.5 mg PO QWEEK Unknown History oxycodone 5 mg tablet 5 mg PO Q4H PRN PRN Pain Sco re 11/18/23 Unknown Rx 4-10 3 days #20 tabs Handicap Placard #1 ea 01/07/24 Unknown Rx denosumab 60 mg/mL subcutaneous 60 mg subcut [id number] bone health 01/19/24 Unknown Rx syringe (Prolia) #1 mL gabapentin 300 mg capsule 300 mg PO QHS #30 caps 02/13 Unknown Rx metoprolol tartrate 25 mg tablet 25 mg PO QDAY heart # 90 tabs 04/19/24 Unknown Rx hydrocodone-acetaminophen 5-325mg 1 tab PO Q6H PRN PRN Pain 3 days 07/14/24 Unknown Rx 5mg-325mg #10 TABLETS ibuprofen 600 mg tablet 600 mg PO Q6H PRN PRN pain # 20 07/14/24 Unknown Rx TABLETS hydroxychloroquine 200 mg tablet See Rx Instructions . Route 09/21/24 Unknown Rx .COMPLEX immunosuppressant #180 tabs sitagliptin phosphate 100 mg See Rx Instructions .Rout e 09/21/24 Unknown Rx tablet (Januvia) .COMPLEX diabetes #90 tabs atorvastatin 80 mg tablet 80 mg PO QHS cholesterol Unknown History neomycin 3.5 mg/g-polymyxin B ophthalmic (eye) BID Unknown History 10,000 unit/g-dexameth 0.1 % eye oint divalproex 500 mg tablet,delayed 500 mg .Route .COMPLE X seizures 11/07/24 Unknown Rx release (Depakote) #90 tabs Allergy/AdvReac Type Severity Reaction Status Date / Time prednisone AdvReac Severe Hives Verified 11/13/24 16:26 Family History (Reviewed 09/28/24 @ 12:57 by Vanita Venegas DIRECTOR OF REGULATORY AFFAIRS, DIRECTOR OF REGULATORY AFFAIRS-C) Grandmother Alcoholism Cancer Arthritis Mother Alcoholism Diabetes blood clots Hypertension Grandfather Heart disease Sister Thyroid disorder Other Breast cancer Cervical cancer Colon cancer Surgical History History of coronary artery bypass graft History of cardiac catheterization History of left heart catheterization (09/20/18) History of coronary artery stent placement (03/22/18) History of carpal tunnel surgery History of section H/O: hysterectomy Social History (Reviewed 09/28/24 @ 12:57 by Vanita Venegas DIRECTOR OF REGULATORY AFFAIRS, DIRECTOR OF REGULATORY AFFAIRS-C) household members: none housing: apartment Smoking Status: Never smoker second hand exposure: No alcohol intake: current alcohol intake frequency: holidays/special occasions only substance use type: does not use what type of physical activity do you participate in: none ROS ROS ED ROS Narrative Diaphoresis Review of Systems ROS Unobtainable: other Constitutional Constitutional ED: Reports lethargy; Denies chills, fever(s), sweats or weight loss Eyes Eyes: Denies blurry vision, change in vision or diplopia ENT ENT ED: Denies rhinorrhea or sore throat Cardiovascular Cardiovascular: Reports chest pain; Denies orthopnea or racing heartbeat Respiratory/Chest Respiratory/Chest: Reports dyspnea and dyspnea on exertion; Denies cough, orthopnea or sputum Gastrointestinal Gastrointestinal: Reports nausea; Denies abdominal pain, diarrhea or vomiting Genitourinary Genitourinary ED: Denies dysuria, [...] urticaria EXAM Physical Exam Const Vital Signs: 11/13/24 16:23 11/13/24 16:26 11/13/24 17:09 Temperature 98.4 F Temperature Source Oral Pulse Rate 34 L Respiratory Rate 29 H Respiratory Effort Normal Non-Labored Blood Pressure 162/77 H Blood Pressure Mean 105 Pulse Ox 100 Oxygen Delivery Method Room Air Room Air 11/13/24 17:16 11/13/24 18:00 11/13/24 19:00 Temperature Temperature Source Pulse Rate 84 81 84 Respiratory Rate 22 H 19 H 19 H Respiratory Effort Blood Pressure 148/77 H 149/76 H 155/81 H Blood Pressure Mean 100 100 105 Pulse Ox 97 98 98 Oxygen Delivery Method Room Air Room Air Room Air Positive well nourished [...] making narrative: Patient presents with chest pain with history of coronary artery disease. Sudden onset. EKG obtained on arrival showed a sinus rhythm with ventricular rate of 103 bpm with no acute ST segment changes. CBC with differential shows white count 4.6 with hemoglobin 11.1 and platelet count of 224. Chemistries unremarkable. Initial troponin was normal at 9. Delta troponin elevated at 18. D-dimer was normal at 0.27. Initially she was given morphine for pain. Seem to help her pain slightly but continued to have pain. Will obtain a second EKG and will give nitroglycerin. Discussed with hospitalist to evaluate patient foradmission. Repeat EKG obtained showed a sinus rhythm with rate of 89 bpm with no acute ST segment changes Lab Data Attestation: I reviewed the patient's lab results. Labs: Laboratory Results - last 24 hr 11/13/24 11/13/24 11/13/24 16:05 18:15 18:20 WBC 4.6 RBC 3.41 L Hgb 11.1 L Hct 33.3 L MCV 97.7 MCH 32.6 H MCHC 33.3 RDW Std Deviation 50.8 H RDW Coeff of [place] 14.2 Plt Count 224 MPV 11.5 Immature Gran % (Auto) 0.400 Neut % (Auto) 55.5 Lymph % (Auto) 35.9 [place] % (Auto) 6.3 Eos % (Auto) 1.7 Baso % (Auto) 0.2 Absolute Neuts (auto) 2.6 Absolute Lymphs (auto) 1.65 Nucleated RBC % 0 D-Dimer Quant (PE/DVT) Cancelled 0.27 Sodium 140 Potassium 4.5 Chloride 104 Carbon Dioxide 23.9 Anion Gap 12 BUN 21 H Creatinine 0.82 Est GFR (MDRD) Non-Af 77 BUN/Creatinine Ratio 25.2 H Glucose 126 H Calcium 9.0 Troponin T High Sens 9 D Troponin T Hi Sens 2 Hr 18 H Radiography Diagnostic Testing: Clinical Impression(s) from Imaging Studies Chest X-Ray 11/13/24 17:17 IMPRESSION: Mildly prominent interstitial markings could be the result of hypoventilatory change, pulmonary edema, or atypical infection. Reading Location: [facility] 1 view chest x-ray obtained interpreted by myself as no evidence of infiltrate or pneumothorax or acute disease process. EKG Initial EKG: Attestation: I personally reviewed and interpreted this EKG as follows: Comments: Sinus rhythm with ventricular rate of 103 bpm with no acute ST segment changes. Discharge Plan Dx/Rx/DC Orders Clinical Impression: Chest pain, ACS (acute coronary syndrome) Disposition Disposition: Acute Care Hospital [facility] What to do if you have Problems For any increased pain, shortness of breath, bleeding, nausea or vomiting, chestpain, or any unexpected problems, contact your Primary Care Provider. Call [facility] ([phone]) or report to the closest Emergency Room. Call 911 if necessary. 11/13/242325 <Electronically signed by Turner Armendariz DO> Cosigner Signature (if applicable): CC: Dr. Mayda Garcia MD ~ Signed [facility] Work Phone: 1(201) 619-592207-13-2025 History and physical note Author Edwin Kaplan [facility] Note Date/Time November 13, 2024 8:50 pm [facility] Medical Records Department [address] [place] [address] H&P Exam - Hospitalist 11/13/242001 MR#: [id number] Acct: [id number] Name: LACY ALVARADO Rep #:[id number] : 1950 73 From: Edwin martin DO PCP: Dr. Mayda Garcia MD Status:R EG ER Location: ED HPI - General General Date of Service: 11/13/24 Chief Complaint: chest pain HPI Narrative LACY ALVARADO, is a 73 F who presented to [facility] ED on 11/13/2024 with chest pain. Medical history significant for CAD with stenting [id number] and CABG x 4 in December 2022, HFpEF, obesity with LINA, seizure disorder, RA,hypertension, hyperlipidemia and neuropathy. She follows with our cardiology group, last saw them in the office in September. Reported left-sided chest pain/tenderness then and notably had been seen in the ED on 09/16 for this as well. Workup was negative for that ED visit and cardiology suspected that the pain could be nerve related from her CABG with vein harvesting. Was also thought that her anemia could be contributing to this pain. Her hemoglobin was 8.6 on 09/16 for unclear reason, as repeat hemoglobin was back to baseline at 11.2 on 09/22. Patient presents today with acute onset left-sided chest pain that began midday. She was feeling fine this morning and went to conf[employer]ianist, but shortly after she got home and was sitting down she developed sudden onset sharpchest pain under the left breast radiating into her left arm. In the ED she wasmildly hypertensive to the 160s systolic, otherwise in normal sinus rhythm and stable on room air. CBC and BMP were benign. Hemoglobin notably 11.1, at baseline. Troponin trend 9 > 18. EKG showed sinus rhythm with no acute ST changes. Chest x-ray showed mildly prominent interstitial markings concerning for pulmonary edema. Patient was given doses of IV morphine, Zofran and nitro in the ED with mild relief of pain. Given chest pain with history as above, hospitalist was contacted for admission. I saw the patient at bedside in the ED, family member was present. Patient was sitting back fairly comfortably in bed and conversing normally. She was reporting ongoing left-sided chest pain, only slightly improved from earlier today. Denies any radiation of the pain currently. Denied any shortness of breath, nausea, fevers or chills. Denies any recent URI symptoms. No other acute concerns currently. Will be admitted for further management. [facility] Medical History (Updated 11/13/24 @ 19:[address] Turner Armendariz DO) Keloid scar of skin Vertigo Chest pain Dyspnea on exertion Wears [...] in nonobese Obesity Urinary frequency Conversion disorder Non-toxic goiter Essential (primary) hypertension RIGHT FOOT HEEL SPUR Atherosclerotic heart disease of [place] coronary artery without angina pectoris Rheumatoid arthritis [...] 06/17/23 Unknown Rx Metrix Glucose Test Strip) lancets 33 gauge #100 ea 06/17/23 Unknown Rx oxycodone 5 mg tablet 5 mg PO Q4H PRN PRN Pain Sco re 11/18/23 Unknown Rx 4-10 3 days #20 tabs Handicap Placard #1 ea 01/07/24 Unknown Rx denosumab 60 mg/mL subcutaneous 60 mg subcut [id number] bone health 01/19/24 Unknown Rx syringe (Prolia) #1 mL gabapentin 300 mg capsule 300 mg PO QHS #30 caps 02/13 Unknown Rx metoprolol tartrate 25 mg tablet 25 mg PO QDAY heart # 90 tabs 04/19/24 Unknown Rx hydrocodone-acetaminophen 5-325mg 1 tab PO Q6H PRN PRN Pain 3 days 07/14/24 Unknown Rx 5mg-325mg #10 TABLETS ibuprofen 600 mg tablet 600 mg PO Q6H PRN PRN pain # 20 07/14/24 Unknown Rx TABLETS hydroxychloroquine 200 mg tablet See Rx Instructions . Route 09/21/24 Unknown Rx .COMPLEX immunosuppressant #180 tabs sitagliptin phosphate 100 mg See Rx Instructions .Rout e 09/21/24 Unknown Rx tablet (Januvia) .COMPLEX diabetes #90 tabs atorvastatin 80 mg tablet 80 mg PO QHS cholesterol Unknown History neomycin 3.5 mg/g-polymyxin B 0.5 inch ophthalmic (eye ) BID 09/28/24 Unknown History 10,000 unit/g-dexameth 0.1 % eye oint divalproex 500 mg tablet,delayed 500 mg .Route .COMPLE X seizures 11/07/24 Unknown Rx release (Depakote) #90 tabs rosuvastatin 40 mg tablet 40 mg PO DAILY 11/13/24 Unkn own History Allergy/AdvReac Type Severity Reaction Status Date / Time prednisone AdvReac Severe Hives Verified 11/13/24 16:26 Family History (Reviewed 09/28/24 @ 12:57 by Vanita Venegas DIRECTOR OF REGULATORY AFFAIRS, DIRECTOR OF REGULATORY AFFAIRS-C) Grandmother Alcoholism Cancer Arthritis Mother Alcoholism Diabetes blood clots Hypertension Grandfather Heart disease Sister Thyroid disorder Other Breast cancer Cervical cancer Colon cancer Surgical History History of coronary artery bypass graft History of cardiac catheterization History of left heart catheterization (09/20/18) History of coronary artery stent placement (03/22/18) History of carpal tunnel surgery History of section H/O: hysterectomy Social History (Reviewed 09/28/24 @ 12:57 by Vanita Venegas DIRECTOR OF REGULATORY AFFAIRS, DIRECTOR OF REGULATORY AFFAIRS-C) household members: none housing: apartment Smoking Status: Never smoker second hand exposure: No alcohol intake: current alcohol intake frequency: holidays/special occasions only substance use type: does not use what type of physical activity do you participate in: none ROS Constitutional Constitutional: Denies chills, fatigue, fever(s) or weakness Eyes Eyes: Denies change in vision Cardiovascular Cardiovascular: Reports chest pain and edema; Denies dyspnea on exertion, lightheadedness, orthopnea or palpitations Respiratory/Chest Respiratory/Chest: Denies cough, shortness of breath at rest, shortness of breath with exertion or wheezing Gastrointestinal Gastrointestinal: Denies abdominal pain Genitourinary Genitourinary: Denies dysuria Musculoskeletal Musculoskeletal: Denies arthralgias or myalgias Neurologic Neurologic: Denies dizziness, focal weakness or headache(s) Vital Signs Vital Signs Vital Signs: 11/13/24 16:23 11/13/24 16:26 11/13/24 17:09 Temperature 98.4 F Temperature Source Oral Pulse Rate 34 L Respiratory Rate 29 H Respiratory Effort Normal Non-Labored Blood Pressure 162/77 H Blood Pressure Mean 105 Pulse Ox 100 Oxygen Delivery Method Room Air Room Air 11/13/24 17:16 11/13/24 18:00 11/13/24 19:00 Temperature Temperature Source Pulse Rate 84 81 84 Respiratory Rate 22 H 19 H 19 H Respiratory Effort Blood Pressure 148/77 H 149/76 H 155/81 H Blood Pressure Mean 100 100 105 Pulse Ox 97 98 98 Oxygen Delivery Method Room Air Room Air Room Air Physical Exam Const alert, oriented x3 and no apparent distress Constitutional Narrative: Elderly female, obese, sitting back in bed fairly comfortably and conversing normally. General Appearance: cooperative and comfortable HEENT normocephalic, head/scalp atraumatic, hearing grossly normal bilaterally, nasal mucous membranes and turbinates normal and moist oral mucous membranes Eyes PERRL, EOMs intact bilaterally and conjunctivae normal Neck full ROM Chest inspection of chest normal Resp normal respiratory effort and no use of accessory muscles Resp Narrative: Breathing comfortably on room air at rest. Mildly diminished breath sounds in bilateral lung bases with mild crackles noted, no wheezing noted. Cardio regular rate, regular rhythm, no murmurs and peripheral pulses 2+ throughout GI normal to inspection, nondistended, normoactive bowel sounds, soft to palpation,non-tender and non-distended Back/Spine normal ROM Extremity full ROM Extremity Narrative: +1-2 lower extremity pitting edema noted bilaterally. Skin no rashes or lesions noted Psych mental status grossly normal Mood & Affect: anxious Results Lab / Micro Data 11/13/24 16:05 11/13/24 16:05 Labs: Laboratory Results - last 24 hr 11/13/24 16:05: WBC 4.6, RBC 3.41 L, Hgb 11.1 L, Hct 33.3 L, MCV 97.7, MCH 32.6 H, MCHC 33.3, RDW Std Deviation 50.8 H, RDW Coeff of [place] 14.2, Plt Count 224, MPV 11.5, Immature Gran % (Auto) 0.400, Neut % (Auto) 55.5, Lymph % (Auto) 35.9,[place] % (Auto) 6.3, Eos % (Auto) 1.7, Baso % (Auto) 0.2, Absolute Neuts (auto) 2.6, Absolute Lymphs (auto) 1.65, Nucleated RBC % 0, D-Dimer Quant (PE/DVT) Cancelled, Sodium 140, Potassium 4.5, Chloride 104, Carbon Dioxide 23.9, Anion Gap 12, BUN 21 H, Creatinine 0.82, Est GFR (MDRD) Non-Af 77, BUN/Creatinine Ratio 25.2 H, Glucose 126 H, Calcium 9.0, Troponin T High Sens 9 D 11/13/24 18:15: D-Dimer Quant (PE/DVT) 0.27 11/13/24 18:20: Troponin T Hi Sens 2 Hr 18 H Imaging Radiology Impression Chest X-Ray 11/13/24 17:17 IMPRESSION: Mildly prominent interstitial markings could be the result of hypoventilatory change, pulmonary edema, or atypical infection. Reading Location: [id number] Assessment & Plan Assessment/Plan (1) Chest pain: PLAN: Plan Patient is a 73-year-old female who presented to [facility] ED on 11/13/2024 with chest pain. 1. Chest pain, ACS rule out ? Admit under observation status to PCU. Cardiology consulted. Reported acute onset left chest pain leading to presentation; however on chart review had similar ED visit in September with negative workup and cardiology suspected possible neuropathy causing this pain. Troponin trend 9 > 18, will follow-up third troponin. EKG with sinus rhythm and no ST changes. Chest x-ray with suspected mild pulmonary edema noted. NT proBNP ordered. Will continue home baby aspirinand high intensity statin. Will keep n.p.o. at midnight and defer to cardiologyon consideration of stress testing versus left heart cath. Continue cardiac monitoring. Lipid panel, A1c and TSH ordered. 2. History of CAD with stenting and CABG, chronic HFpEF, hypertension, hyperlipidemia ? Follows with outpatient cardiology, last office visit in September. See HPI for further details on history. In short, had stenting in 2017 and CABG x 4 in 2022. Last echo in 11/2023 with EF 65%, no other concerning findings. Last lipid panel in September with total cholesterol 206, LDL 135, HDL 58. Repeat lipid panel ordered as above. Continue high-intensity statin. Continue home and Lopressor. Chronic medical conditions: ? Class I obesity with LINA: Follows with outpatient pulmonology. BMI 32 on admit. Complicates hospital course, care and prognosis. Continue home PAP therapy at night. ? RA: Continue home hydroxychloroquine. ? Neuropathy: Continue home gabapentin. ? Seizure disorder: Follows with outpatient neurology. Continue home divalproex. ? Osteoporosis: Continue denosumab injections every 6 months on discharge. ? Type 2 diabetes mellitus: Last A1c 6.4% in August, repeat A1c ordered as above. Blood glucose 126 on admit. Hold home sitagliptin. Will hold on insulin orders for now, can start as needed. DVT prophylaxis: Lovenox CODE STATUS: Full code, verified Expected disposition: Home, TBD Total clinical time spent by myself addressing the patient's medical issues, reviewing all the data, and collaborating with patient's care team: 75 minutes. Charges/Coding Visit Charges Inpatient E&M: 32652 Init Hosp L3 11/13/242049 <Electronically signed by Edwin Kaplan DO> Cosigner Signature (if applicable): CC: Dr. Edwin Kaplan DO; Dr. Mayda Garcia MD~ Signed [facility] Work Phone: 1(465) 695-142807-13-2025 Radiology Diagnostic study [facility]05-16-2025 Radiology Diagnostic study [facility]04-09-2025 Evaluation note* Diagnosis Onset Date Resolution Status Admit Date Essential (primary) hypertension chr onic August 10, 2024 10:37am Osteoporosis chronic August 10, 2 025 10:37am Rheumatoid arthritis chronic Apri l 2024 10:37am Type 2 diabetes mellitus chronic August 10, 2024 10:37am Anemia acute September 19, 2024 8:51am Atherosclerotic heart diseas e of [place] coronary artery without angina pectoris chronic September [...] not intractable, without status epilepticus chronic November 07, 2024 1 1:01am [facility] Work Phone: 1(807) 473-303204-09-2025 Evaluation note* Diagnosis Onset Date Resolution Status Admit Date Essential (primary) hypertension chr onic August 10, 2024 10:37am Osteoporosis chronic August 10, 2 025 10:37am Rheumatoid arthritis chronic Apri 2024 10:37am Type 2 diabetes mellitus chronic August 10, 2024 10:37am Anemia acute September 19, 2024 8:51am Atherosclerotic heart diseas e of [place] coronary artery without angina pectoris chronic September [...] not intractable, without status epilepticus chronic November 07, 2024 1 1:01am Fatigue chronic November 07, 2024 11:01am Chest pain acute November 13 9:08pm [facility] Work Phone: 1(713) 776-644704-09-2025 Evaluation note* Diagnosis Onset Date Resolution Status Admit Date Essential (primary) hypertension chr onic August 10, 2024 10:37am Osteoporosis chronic August 10, 2 025 10:37am Rheumatoid arthritis chronic Apri 2024 10:37am Type 2 diabetes mellitus chronic August 10, 2024 10:37am Anemia acute September 19, 2024 8:51am Atherosclerotic heart diseas e of [place] coronary artery without angina pectoris chronic September [...] not intractable, without status epilepticus chronic November 07, 2024 1 1:01am Fatigue chronic November 07, 2024 11:01am Chest pain acute November 13 8:02pm Essential (primary) hypertension chr onic November 13, 2024 8:02pm History of coronary artery bypass graft chronic November 13, 2024 8:02pm Hyperlipidemia chronic November 13, 2024 8:02pm Type 2 diabetes mellitus chronic November 13, 2024 8:02pm [facility] Work Phone: 1([phone]) 488-812704-09-2025 Evaluation note* Diagnosis Onset Date Resolution Status Admit Date Essential (primary) hypertension chr onic August 10, 2024 10:37am Osteoporosis chronic August 10, 025 10:37am Rheumatoid arthritis chronic 2024 10:37am Type 2 diabetes mellitus chronic August 10, 2024 10:37am Anemia acute September 19, 2024 8:51am Atherosclerotic heart diseas e of [place] coronary artery without angina pectoris chronic September [...] not intractable, without status epilepticus chronic November 07, 2024 1 1:01am Fatigue chronic November 07, 2024 11:01am Essential (primary) hypertension chr onic November 13, 2024 8:02pm History of coronary artery bypass graft chronic November 13, 2024 8:02pm Hyperlipidemia chronic November 13, 2024 8:02pm Type 2 diabetes mellitus chronic November 13, 2024 8:02pm Chest pain resolved November 13 8:02pm [facility] Work Phone: 1(729) 411-141004-09-2025 Evaluation note* Diagnosis Onset Date Resolution Status Admit Date Essential (primary) hypertension chr onic August 10, 2024 10:37am Osteoporosis chronic August 10, 2 025 10:37am Rheumatoid arthritis chronic Apri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 GERD (gastroesophageal reflux disease), Hyperlipidemia, Hypertension, RA (rheumatoid arthritis) ([facility]), Seizure ([facility]), Seizures ([facility]), and Sleep apnea. has a past [...] / Caregiver Present: No Diagnosis: CAD in [place] artery s/p CABG on 01/01 Follows Commands: [...] Treatment Minutes: 39 Minutes (FA, GT. TP) RETAIL SPECIAL EVENT ASSOCIATE wore PPE in compliance with hospital guidelines and regulation when treating this patient. Samaria Li, JANICE * Chandler Ram APRN - SERENA - 01/08/2023 6:04 AM EDT Images from the original note were not included. Cardiothoracic Surgery/CCM Progress Note PATIENT NAME: Lacy Alvarado DATE: 01/08/23 HPI: 72 y.o. female was referred by Dr. Bhanu Milian. Patient was admitted on 8/17/23 to [facility] with CP history of CHF, CAD, [...] Conversationsongoing with family about living arrangements at ID. Review of Systems Constitutional: Negative for chills, [...] EF: Normal (01/01/23) Blood Conservation: Transfused post-op. Uranium Processing Supervisor: Valente Cardiology * Talita Haque RD - [...] provided with heart healthy diet handout with [facility] RD phone number at initial assessment. Will [...] muscle mass loss Fluid Accumulation: Mild Extremities Superannuation Clerk Strength: Not Performed Nutrition Assessment: Pt with PMH including HTN, DM, HLD, CHF, RA, epilepsy, GERD, LINA, prior PCI, presented to [facility] on 01/01/23 for CABG after recent admissiont to [facility] on 12/18/22 and had LHC which [...] On: Kcal/kg Weight Used for Energy Requirements: [place]man (25-30 kcal/kg) Weight for Energy Calculation (kg): 50 kg Total Energy Requirements (kcals/day): 9940-8047 Weight Used for Protein Requirements: [place] (1.2-1.5 g/kg) Weight in Kg Used for [...] Weight: 78 kg (172 lb) (no method) [place]man Body Weight (lbs) (Calculated): 110 lbs [place] Body Weight (Kg) (Calculated): 50 kg % [place]man Body Weight (Calculated): 157.9 % BMI (kg/m2) [...] to determine Talita Haque RD, LD Contact: *[phone] or via [employer] chat * Kristel Beard MD - 01/07/2023 11:03 AM EDT Department of Internal Medicine Division of Endocrinology, Diabetes, & Metabolism Endocrinology Note Patient Name: Lacy Alvarado : 1950 AGE: 72 y.o. Room/Bed: [facility]/T1103 A Admission Date: 01/01/2023 Visit Date: 01/07/2023 Reason for Endocrine Consult: post op heart Provider/Team Requesting Consult: cts PCP: EFEWONGBE OLEGHE Outpt Mail List Processor: No ASSESSMENT: DM 2 with hyperglycemia without extermination inspector insulin Stress hyperglycemia CAD s/p Cabgx4 PLAN: [...] found for: CHOLHDLRATIO No results found for: [id number] No results found for: TSH, D2XRQQL, D5ABVRW, THYROIDAB Radiology reportsas per the Radiologist Radiology: [...] date of this note. * Samaria Li, RETAIL SPECIAL EVENT ASSOCIATE - 01/07/2023 10:41 AM EDT Physical Therapy Facility/Department: [facility] Physical Therapy Daily Treatment Note NAME: Lacy Alvarado : 1950 Date of Service: 01/07/2023 Discharge Recommendations: IP Rehab, [facility] Facility PT Equipment Recommendations Equipment Needed: No [...] The primary encounter diagnosis was CAD in [place] artery. A diagnosis of Coronary artery disease involving coronary bypass graft, unspecified whether angina present, unspecified whether [place] or transplanted heart was also pertinent to this visit. has a past medical history of CHF (congestive heart failure) ([facility]/HCC) ([facility]), Diabetes mellitus ([facility]), GERD (gastroesophageal reflux disease), Hyperlipidemia, Hypertension, RA (rheumatoid arthritis) ([facility]), Seizure ([facility]), Seizures ([facility]), and Sleep apnea. has a past [...] / Caregiver Present: No Diagnosis: CAD in [place] artery s/p CABG on 01/01 Follows Commands: [...] understanding Therapy Time Individual Co-treatment Time In 841 Time Out 923 Minutes 42 Timed Code Treatment Minutes: 42 Minutes (FA, GT x 2) RETAIL SPECIAL EVENT ASSOCIATE wore PPE in compliance with hospital guidelines and regulation when treating this patient. Samaria Li, RETAIL SPECIAL EVENT ASSOCIATE * Shruthi Weaver, ELECTRIC MOTOR CONTROLS ASSEMBLER - RIGGING SUPERVISOR - 01/07/2023 5:53 AM EDT Images from the original note were not included. Cardiothoracic Surgery/CCM Progress Note PATIENT NAME: Lacy Alvarado DATE: 01/07/23 HPI: 72 y.o. female was referred by Dr. Bhanu Milian. Patient was admitted on 12/18/22 to [facility] with CP history of CHF, CAD, [...] EF: 01/01: Normal Blood Conservation: Transfused postop Uranium Processing Supervisor: Valente Cardiology * Wendy Bina - 01/06/2023 11:33 AM EDT Occupational Therapy [...] The primary encounter diagnosis was CAD in [place] artery. A diagnosis of Coronary artery disease involving coronary bypass graft, unspecified whether angina present, unspecified whether [place] or transplanted heart was also pertinent to this visit. has a past medical history of CHF (congestive heart failure) (CMS/HCC) ([facility]), Diabetes mellitus ([facility]), GERD (gastroesophageal reflux disease), Hyperlipidemia, Hypertension, [...] Daily Activity Raw Score: 22 ADL Inpatient [facility] G-Code Modifier: CJ Goals Encounter Problems [...] Plan of Care supervision is transferred to [facility] Occupational Therapist. Goals and/or treatment plan was established in collaboration with patient/family/other representatives. Wendy Curran S/OT * Samaria Li PTA - 01/06/2023 10:07 AM EDT Physical Therapy Facility/Department: [facility] Physical Therapy Daily Treatment Note NAME: Lacy [...] The primary encounter diagnosis was CAD in [place] artery. A diagnosis of Coronary artery disease involving coronary bypass graft, unspecified whether angina present, unspecified whether [place] or transplanted heart was also pertinent to this visit. has a past medical history of CHF (congestive heart failure) (CMS/HCC) ([facility]), Diabetes mellitus ([facility]), GERD (gastroesophageal reflux disease), Hyperlipidemia, Hypertension, RA (rheumatoid arthritis) ([facility]), Seizure ([facility]), Seizures ([facility]), and Sleep apnea. has a past [...] / Caregiver Present: No Diagnosis: CAD in [place] artery s/p CABG on 01/01 Follows Commands: [...] Individual Co-treatment Time In 08 Time Out 0842 Minutes 40 Timed Code Treatment Minutes: 40 Minutes (FA, GT, TP) RETAIL SPECIAL EVENT ASSOCIATE wore PPE in compliance with hospital guidelines and regulation when treating this patient. Samaria Li, RETAIL SPECIAL EVENT ASSOCIATE * Shruthi Weaver, ELECTRIC MOTOR CONTROLS ASSEMBLER - RIGGING SUPERVISOR - 01/06/2023 6:06 AM EDT Images from the original note were not included. Cardiothoracic Surgery/[facility] Progress Note PATIENT NAME: Lacy Alvarado DATE: 01/06/23 HPI: 72 y.o. female was referred by Dr. Bhanu Milian. Patient was admitted on 12/18/22 to [facility] with CP history of CHF, CAD, [...] BMI (Calculated): 33.06 CXR: BMP: Recent Labs 01/04/2330801/05/231 01/06/2333 NA 135 137 136 K 3.9 3.8 3.9 CL 100 98 98 CO2 26 27 27 BUN 34* 43* 39* CREATININE 1.11* 1.25* 0.99 CALCIUM 8.5 8.5 8.6 MG 2.6* 2.8* 2.7* CBC: Recent Labs 01/04/2330801/05/23 0041 01/06/23 003 WBC 7.9 6.7 5.6 HGB 9.9* 9.9* [...] EF: 01/01: Normal Blood Conservation: Transfused postop Uranium Processing Supervisor: Valente Cardiology Associated attestation - [place] [...] Alvarado : 1950 AGE: 72 y.o. Room/Bed: [facility] A Admission Date: 01/01/2023 Visit Date: 01/05/2023 Reason for Endocrine Consult: post op heart Provider/Team Requesting Consult: cts PCP: MAYDA GARCIA Outpt Mail List Processor: No ASSESSMENT: DM 2 with hyperglycemia without extermination inspector insulin Stress hyperglycemia CAD s/p Cabgx4 PLAN: [...] found for: CHOLHDLRATIO No results found for: [id number] No results found for: TSH, E1DJCSS, C5JHVND, THYROIDAB Radiology reportsas per the Radiologist Radiology: ECG 12 lead Result Date: 01/01/2023 Sinus rhythm History/Other: Past Medical History: Past Medical History: Diagnosis Date CHF (congestive heart failure) ([facility]/HCC) (HCC) Diabetes mellitus (HCC) GERD (gastroesophageal reflux disease) Hyperlipidemia Hypertension RA (rheumatoid arthritis) ([facility]) Seizure (HCC) last seizure 5 months [...] date of this note. * Chandler Ram, ELECTRIC MOTOR CONTROLS ASSEMBLER - [facility] - 01/05/2023 6:19 AM EDT Images from the original note were not included. Cardiothoracic Surgery/[facility] Progress Note PATIENT NAME: Lacy Alvarado DATE: 01/05/23 HPI: Lacy Alvarado is a 72 y.o. female was referred to us by Dr. Bhanu Milian. Patient was admitted on12/18/22 to [facility] with CP history of CHF, CAD, [...] Temporal BMI (Calculated): 32 BMP: Recent Labs 01/03/231301/04/2330801/05/23 0041 NA 136 135 137 K 4.4 3.9 3.8 CL 103 100 98 CO2 25 26 27 BUN 23* 34* 43* CREATININE 0.80 1.11* 1.25* CALCIUM 8.5 8.5 8.5 MG 2.3 2.6* 2.8* CBC: Recent Labs 01/03/231301/04/2330801/05/23 004 WBC 8.6 7.9 6.7 HGB 10.1* 9.9* [...] Nomal (SIS 01/01/23) Blood Conservation: Transfused post-op. Uranium Processing Supervisor: Valente Cardiology Associated attestation - [place] [...] 01/04/2023 1:07 PM EDT Physical Therapy Facility/Department: [facility] Physical Therapy Daily Treatment Note NAME: Lacy [...] The primary encounter diagnosis was CAD in [place] artery. A diagnosis of Coronary artery disease involving coronary bypass graft, unspecified whether angina present, unspecified whether [place] or transplanted heart was also pertinent to this visit. has a past medical history of CHF (congestive heart failure) (CMS/HCC) ([facility]), Diabetes mellitus ([facility]), GERD (gastroesophageal reflux disease), Hyperlipidemia, Hypertension, RA (rheumatoid arthritis) ([facility]), Seizure ([facility]), Seizures ([facility]), and Sleep apnea. has a past [...] / Caregiver Present: No Diagnosis: CAD in [place] artery s/p CABG on 01/01 Follows Commands: [...] Plan of Care supervision is transferred to [facility] Department Physical Therapist. Ambreen Avitia PT * Angela Smith MD - 01/04/2023 10:34 AM EDT Department of Internal Medicine Division of Endocrinology, Diabetes, & Metabolism Endocrinology Note Patient Name: Lacy Alvarado : 1950 AGE: 72 y.o. Room/Bed: [facility] A Admission Date: 01/01/2023 Visit Date: 01/04/2023 Reason for Endocrine Consult: post op heart Provider/Team Requesting Consult: cts PCP: MAYDA Esposito Mail List Processor: No ASSESSMENT: DM 2 with hyperglycemia without retirement insulin Stress hyperglycemia CAD s/p Cabgx4 PLAN: [...] found for: CHOLHDLRATIO No results found for: [id number] No results found for: TSH, P0UQSLQ, J8NVWTN, THYROIDAB Radiology reportsas per the Radiologist Radiology: ECG 12 lead Result Date: 01/01/2023 Sinus rhythm History/Other: Past Medical History: Past Medical History: Diagnosis Date CHF (congestive heart failure) (CMS/HCC) (HCC) Diabetes mellitus (HCC) GERD (gastroesophageal reflux disease) Hyperlipidemia Hypertension RA (rheumatoid arthritis) (HCC) Seizure (HCC) last seizure 5 months ago gannapoleon mal 08/24 Seizures (HCC) Sleep apnea Past [...] this note. * Chandler Ram, GORDO - [facility] - 01/04/2023 6:02 AM EDT Images from the original note were not included. Cardiothoracic Surgery/[facility] Progress Note PATIENT NAME: Lacy Alvarado DATE: 01/04/23 HPI: Lacy Alvarado is a 72 y.o. female was referred to us by Dr. Bhanu Milian. Patient was admitted on12/18/22 to [facility] with CP history of CHF, CAD, [...] BMP: Recent Labs 01/01/23 1010 01/02/23 0002 01/02/2321 01/03/23 0014 01/04/23 0309 NA 140 140 [...] Nomal (SIS 01/01/23) Blood Conservation: Transfused post-op. Uranium Processing Supervisor: Valente Cardiology * Angela Smith MD - 01/03/2023 9:18 AM EDT Department of Internal Medicine Division of Endocrinology, Diabetes, & Metabolism Endocrinology Note Patient Name: Lacy Alvarado : 1950 AGE: 72 y.o. Room/Bed: [facility] A Admission Date: 01/01/2023 Visit Date: 01/03/2023 Reason for Endocrine Consult: post op heart Provider/Team Requesting Consult: edwin PCP: MAYDA GARCIA Outpt Mail List Processor: No ASSESSMENT: DM 2 with hyperglycemia without extermination inspector insulin Stress hyperglycemia CAD s/p Cabgx4 PLAN: [...] found for: CHOLHDLRATIO No results found for: [id number] No results found for: TSH, E8SRFWG, D0URNPU, THYROIDAB Radiology reportsas per the Radiologist Radiology: ECG 12 lead Result Date: 01/01/2023 Sinus rhythm History/Other: Past Medical History: Past Medical History: Diagnosis Date CHF (congestive heart failure) ([facility]/HCC) (HCC) Diabetes mellitus (HCC) GERD (gastroesophageal [...] date of this note. * Chandler Ram, ELECTRIC MOTOR CONTROLS ASSEMBLER - RIGGING SUPERVISOR - 01/03/2023 5:56 AM EDT Images from the original note were not included. Cardiothoracic Surgery/[facility] Progress Note PATIENT NAME: Lacy Alvarado DATE: 01/03/23 HPI: Lacy Alvarado is a 72 y.o. female was referred to us by Dr. Bhanu Milian. Patient was admitted on12/18/22 to [facility] with CP history of CHF, CAD, [...] Nomal (SIS 01/01/23) Blood Conservation: Transfused post-op. Uranium Processing Supervisor: Valente Cardiology * Aleksandr Higuera, PT - 01/02/2023 11:02 AM EDT Physical Therapy Facility/Department: [facility] Physical Therapy Initial Evaluation NAME: Lacy Alvarado [...] The primary encounter diagnosis was CAD in [place] artery. A diagnosis of Coronary artery disease involving coronary bypass graft, unspecified whether angina present, unspecified whether [place] or transplanted heart was also pertinent to this visit. has a past medical history of CHF (congestive heart failure) (CMS/HCC) ([facility]), Diabetes mellitus ([facility]), GERD (gastroesophageal reflux disease), Hyperlipidemia, Hypertension, RA (rheumatoid arthritis) ([facility]), Seizure ([facility]), Seizures ([facility]), and Sleep apnea. has a past [...] / Caregiver Present: No Diagnosis: CAD in [place] artery s/p CABG on 01/01 Follows Commands: [...] Plan of Care supervision is transferred to [facility] Re[facility] Department Physical Therapist. Aleksandr Higuera PT * Cassandra Olivarez ELECTRIC MOTOR CONTROLS ASSEMBLER - AIRPORT RAMP SUPERVISOR - 01/02/2023 9:28 AM EDT Department of Internal Medicine Division of Endocrinology, Diabetes, & Metabolism Endocrinology Note Patient Name: Lacy Alvarado : 1950 AGE: 72 y.o. Room/Bed: [facility] A Admission Date: 01/01/2023 Visit Date: 01/02/2023 Reason for Endocrine Consult: post op heart Provider/Team Requesting Consult: cts PCP: MAYDA GARCIA Outpt Mail List Processor: No ASSESSMENT: Cad s/p Cabgx4 Dm2 with hyperglycemia without retirement insulin Stress hyperglycemia Chf Hld/htn PLAN: discontinue [...] Intake/Output Summary (Last 24 hours) at 01/02/2023 09 Last data filed at 01/02/2023 0600 Gross [...] regular, 1-50 Units/hr, Last Rate: Stopped (01/02/23 9656) nitroprusside, 0.1-3 mcg/kg/min, Last Rate: Stopped (01/02/23 4231) PRN Meds:PRN medications: calcium gluconate, dextrose, dextrose, [...] found for: CHOLHDLRATIO No results found for: [id number] No results found for: TSH, D6YCLRR, L9RQBRK, THYROIDAB Radiology reportsas per the Radiologist Radiology: [...] care as documented in note. * Chandler aRm APRN - SERENA - 01/02/2023 5:56 AM EDT Images from the original note were not included. Cardiothoracic Surgery/[facility] Progress Note PATIENT NAME: Lacy Alvarado DATE: 01/02/23 HPI: Lacy Alvarado is a 72 y.o. female was referred to us by Dr. Bhanu Milian. Patient was admitted on12/18/22 to [facility] with CP history of CHF, CAD, [...] Nomal (SIS 01/01/23) Blood Conservation: Transfused post-op. Uranium Processing Supervisor: Valente Cardiology Associated attestation - Carlos Chavarria [...] 35 minutes documented in this [facility]09-09-2023 Note* Care Coordination - Alaina Truong RN - 01/10/2023 2:11 PM EDT Images from the original note were not included. CARE COORDINATION DAILY NOTE/UPDATE Medical Plan: sp CABG x 3 POD # 9. Discharge Plan: [facility] Transitional Care Unit Discharge Barriers: pending medical clearance Received a message from Anna COLLINS I heard from [facility] okay to admit. Stated by Shruthi [...] RN 01/02/2023 2:07 PM 01/06/2023 Shruthi Weaver, ELECTRIC MOTOR CONTROLS ASSEMBLER - RIGGING SUPERVISOR 01/01/2023 11:16 AM 01/06/2023 Azam Rose MD 01/01/2023 5:45 AM Length of Stay (Days): 9 GMLOS: 5.9 [id number] [facility]* Care Coordination - Delores Mullins RN - 01/09/2023 10:21 AM EDT Images from the original note were not included. Care Management Progress Note Patient remains on HLU sp CABG x 3 POD # 8. [facility] Transitional Care Unit can accept, spoke [...] RN 01/02/2023 2:07 PM 01/06/2023 Shruthi Weaver, ELECTRIC MOTOR CONTROLS ASSEMBLER - RIGGING SUPERVISOR 01/01/2023 11:16 AM 01/06/2023 Azam Rose MD 01/01/2023 5:45 AM Length of Stay (Days): 8 GMLOS: 5.9 [id number] Hospital Discharge instructions* Discharge Instructions* GORDO Felix CNP - 01/09/2023 8:42 AM EDT Cardiothoracic Surgery: Symptom Management Office phone number: [phone] Office is open 8:30 am -4 pm. [...] Call cardiothoracic surgery line for further instructions: [phone] Office is open 8:30 am -4 pm. [...] Problems Problem List * (Principal) CAD in [place] artery Allergic disorder Amnesia Arthritis Overview Signed [...] Zuluaga MD DME: Camacho Titration done @ [facility] 03/08/2012 recommended CPAP @ 11 cm [...] assistance Toileting Minimal assistance Feeding Minimal assistance Training Assistant Independent Med Delivery yes Wound Care [...] Score: @READMISSIONRISKDETAILS@ Discharging to Facility/ Agency Name: [facility] Address: [facility] Fax: Dialysis Facility (if applicable) Name: Address: Dialysis Schedule: Phone: Fax: Ship Scaler/Crm Specialist signature: ICIAN SECTION Prognosis: good Condition at [...] the diagnosis listed and that she requires detention facility for less than 30 days. Update Admission H&P: Changes in H&P as follows: see below 72 y.o. female was referred by Dr. Bhanu Milian. Patient was admitted on 12/18/22 to [facility] with CP history of CHF, CAD, [...] through Care Everywhere. * Heart Healthy Diet (Afghan) documented in this [facility]09-08-2023 Note* Care Coordination - Good Jang - 01/09/2023 8:15 AM EDT [facility] per [facility] request. Referral placed to [facility] via fax # [phone] to Shauna in Admissions Await review and response regarding ability to accept. TCC notified. [id number] Note* Care Coordination - Good Jang - 01/08/2023 3:06 PM EDT Referral placed to SNF- [facility] via [facility] per TCC request. Await review and response regarding ability to accept. TCC notified. [id number] Note* Care Coordination - Delores Mullins RN - 01/08/2023 2:36 PM EDT Spoke with patient at bedside, niece Bhupinder over the phone to discuss therapy recommendations. Agreeable to SNF, [facility] and [address] [place] [address] Healthy. [id number] Note* Care Coordination - Delores Mullins RN - 01/07/2023 2:18 PM EDT Images from the original note were not included. Care Management Progress Note Patient remains on HLU s/p CABG x 3 POD # 6. PT continuing to recommend IPR vs SNF. [facility] unable to accept patient, FOC, patient and niece declining SNF, discharge plan is home with [facility]. TCC to follow for updated therapy recs [...] RN 01/02/2023 2:07 PM 01/06/2023 Shruthi Weaver, ELECTRIC MOTOR CONTROLS ASSEMBLER - RIGGING SUPERVISOR 01/01/2023 11:16 AM 01/06/2023 Azam Rose MD 01/01/2023 5:45 AM Length of Stay (Days): 6 GMLOS: 5.9 [id number] NoteReceived referral and reviewed chart. Phase II Cardiac Rehab Referral discussed with aLcy Alvarado. Patient prefers cardiac rehab at [facility]. Given information on cardiac rehab at preferred location. [facility]09-05-2023 Note* Care Coordination - Delores Mullins RN - 01/06/2023 1:01 PM EDT [facility] unable to accept patient, too functional. Updated patient at bedside and alyssa Holloway (HCPOA) over the phone. 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 Will updated [facility], CTS DIRECTOR OF REGULATORY AFFAIRS aware. [facility] [id number] Consult note* Faiza Thomas - 01/06/2023 11:33 AM EDTAssociated Order(s): IP CONSULT TO CARDIAC REHAB Received referral and reviewed chart. Phase II Cardiac Rehab Referral discussed with Lacy Alvarado. Patient [facility]. Given information on cardiac rehab at preferred location. [facility] [id number] Consult note* Faiza Thomas - 01/06/2023 11:33 AM EDTAssociated Order(s): IP CONSULT TO CARDIAC REHAB Received referral and reviewed chart. Phase II Cardiac Rehab Referral discussed with Lacy Alvarado. Patient prefers cardiac rehab at [facility]. Given information on cardiac rehab [...] heart healthy diet handout at bedside with [facility] [address] phone number. 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 Pt underwent CABG x 4 01/01. Extubated with diet ordered. Pt is sleeping in chair at time of RD visit-did not disturb. Provided heart healthy diet handout with [facility] [address] phone number for reference at bedside. Estimated Daily Nutrient Needs: Energy Requirements Based On: Kcal/kg Weight Used for Energy Requirements: Furman (25-30 kcal/kg) Weight for Energy Calculation (kg): 50 kg Total Energy Requirements (kcals/day): 5181-0822 Weight Used for Protein Requirements: Furman (1.2-1.5 g/kg) Weight in Kg Used for [...] Weight: 78 kg (172 lb) (no method) Furman Body Weight (lbs) (Calculated): 110 lbs Furman Body Weight (Kg) (Calculated): 50 kg % Furman Body Weight (Calculated): 157.9 % BMI (kg/m2) [...] to determine Talita Haque RD, LD Contact: *[phone] or via SumoSkinny chat * Kaye Sanchez APRN - RIGGING SUPERVISOR - 01/01/2023 11:40 AM EDTAssociated Order(s): IP CONSULT TO ENDOCRINOLOGY Department of Internal Medicine Division of Endocrinology, Diabetes, & Metabolism Endocrinology Note Patient Name: Lacy Alvarado : 1950 AGE: 72 y.o. Room/Bed: [facility]/T1103 A Admission Date: 01/01/2023 Visit Date: 01/01/2023 Reason for Endocrine Consult: post op heart Provider/Team Requesting Consult: cts PCP: MAYDA GARCIA Outpt Mail List Processor: No ASSESSMENT: Cad s/p Cabgx4 Dm2 with hyperglycemia without extermination inspector insulin Stress hyperglycemia Chf Hld/htn PLAN: Continue [...] found for: CHOLHDLRATIO No results found for: [id number] No results found for: TSH, S1UDFOJ, V2UXSAU, THYROIDAB Radiology reportsas per the Radiologist Radiology: [...] in note. * Mynor Villareal APRN - RIGGING SUPERVISOR - 01/01/2023 8:58 AM EDT Images from the original note were not included. [facility]: Critical Care Consultation Note Date: 01/01/23 PATIENT NAME: Lacy Alvarado : 1950 (72 y.o.) Reason for Consult: Critical Care & Vent Management HPI: Lacy Alvarado is a 72 y.o. female was referred to us by Dr. Bhanu Milian. Patient was admitted on12/18/22 to [facility] with CP history of CHF, CAD, [...] on 01/01/2023 12/24/22 Kassy Tabares APRN - RIGGING SUPERVISOR traMADol (Ultram) 50 MG tablet Take 50 [...] PM EDT I have personally performed a hjjf-fh-ykur diagnostic evaluation on this patient on date of qdzywoc04/31/23 . History, labs, imaging studies, and electronic medical record have been reviewed by me. This notedocumented by the []laundry housekeeper [x]SONYA reflects my history, exam, and medical [...] Pacer wires documented in this [facility]09-05-2023 NoteCare Management Progress Note Patient remains [...] 2:07 PM 01/06/2023 Shruthi Weaver APRN - RIGGING SUPERVISOR 01/01/2023 11:16 AM 01/06/2023 Azam Rose MD 01/01/2023 5:45 AM Length of Stay (Days): 5 GMLOS: 5.9 [facility]09-05-2023 Note* Care Coordination - Delores [...] RN 01/02/2023 2:07 PM 01/06/2023 Shruthi Weaver, ELECTRIC MOTOR CONTROLS ASSEMBLER - RIGGING SUPERVISOR 01/01/2023 11:16 AM 01/06/2023 Azam Rose MD 01/01/2023 5:45 AM Length of Stay (Days): 5 GMLOS: 5.9 [facility] [id number] NoteCardiothoracic Surgery/CCM Progress Note PATIENT NAME: Lacy Alvarado DATE: 01/04/23 HPI: Lacy Alvarado is a 72 y.o. female was referred to us by Dr. Bhanu Milian. Patient was admitted on 12/18/22 to [facility] with CP history of CHF, CAD, [...] BMP: Recent Labs 01/01/23 1010 01/02/23 0002 01/02/2321 01/03/23 0014 01/04/23 0309 NA 140 140 [...] Nomal (SIS 01/01/23) Blood Conservation: Transfused post-op. Uranium Processing Supervisor: [facility]09-02-2023 NoteCardiothoracic Surgery/CCM Progress Note PATIENT NAME: Lacy Alvarado DATE: 01/03/23 HPI: Lacy Alvarado is a 72 y.o. female was referred to us by Dr. Bhanu Milian. Patient was admitted on 12/18/22 to [facility] with CP history of CHF, CAD, [...] Nomal (SIS 01/01/23) Blood Conservation: Transfused post-op. Uranium Processing Supervisor: [facility]09-02-2023 Plan of care note* Care [...] Interventions Goal: Assess Nutritional Intake Outcome: Progressing [facility] [id number] Note* Home Care - Lisa Yo RN - 01/02/2023 3:39 PM EDT [employer] Employee following case for Discharge Needs. [facility] [id number] NoteNutrition Assessment Type and Reason for Visit: [...] heart healthy diet handout at bedside with [facility] [address] phone number. 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 Pt underwent CABG x 4 01/01. Extubated with diet ordered. Pt is sleeping in chair at time of RD visit-did not disturb. Provided heart healthy diet handout with [facility] [address] phone number for reference at bedside. Estimated Daily Nutrient Needs: Energy Requirements Based On: Kcal/kg Weight Used for Energy Requirements: Furman (25-30 kcal/kg) Weight for Energy Calculation (kg): 50 kg Total Energy Requirements (kcals/day): 4087-2717 Weight Used for Protein Requirements: Furman (1.2-1.5 g/kg) Weight in Kg Used for [...] 78.8 kg (173 lb 11.6 oz) (01/02 [facility]) Admission Body Weight: 78 kg (172 lb) (no method) Furman Body Weight (lbs) (Calculated): 110 lbs Furman Body Weight (Kg) (Calculated): 50 kg % Furman Body Weight (Calculated): 157.9 % BMI (kg/m2) [...] to determine Talita Haque RD, LD Contact: *[phone] or via Moogsoft [id number] Note* Care Coordination - Delores Mullins RN - 01/02/2023 2:07 PM EDT Care Managment Initial Assessment Date: 01/02/2023 Patient Name: Lacy Alvarado : 1950 Patient Information Source of Information: Patient Cognition/Language: WFL - Within Functional Limits Permission given to speak with patient equal opportunity representative/caregiver as indicated: Yes Confirmation of Payer with patient/family: Yes Payer Name: Anthem Medicare [place]: No Confirmation of Primary Care Physician: Confirmed [...] Living Prescription Coverage: Yes Pharmacy Used: [facility] Medication Management: Independent Transportation/Shopping: Assistance Provider [...] for home care needs. Delores Mullins RN [facility] [id number] Consult note* Talita Haque RD - 01/02/2023 [...] heart healthy diet handout at bedside with [facility] [address] phone number. 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 Pt underwent CABG x 4 01/01. Extubated with diet ordered. Pt is sleeping in chair at time of RD visit-did not disturb. Provided heart healthy diet handout with [facility] RD phone number for reference at bedside. Estimated Daily Nutrient Needs: Energy Requirements Based On: Kcal/kg Weight Used for Energy Requirements: Furman (25-30 kcal/kg) Weight for Energy Calculation (kg): 50 kg Total Energy Requirements (kcals/day): 0682-4628 Weight Used for Protein Requirements: Furman (1.2-1.5 g/kg) Weight in Kg Used for [...] 78.8 kg (173 lb 11.6 oz) (01/02 [facility]) Admission Body Weight: 78 kg (172 lb) (no method) Furman Body Weight (lbs) (Calculated): 110 lbs Furman Body Weight (Kg) (Calculated): 50 kg % Furman Body Weight (Calculated): 157.9 % BMI (kg/m2) [...] to determine Talita Haque RD, LD Contact: *[phone] or via SumoSkinny chat [facility] [id number] NotePatient: Lacy Alvarado Procedure Summary Date: 01/01/23 Room / Location: [facility] OR [address] [place] [address] Operating Room Anesthesia Start: 657 Anesthesia Stop: 112 Procedures: CABG AND SIS (Chest) Echocardiography transesophageal real-time Diagnosis: Atherosclerotic heart disease of [place] coronary artery without angina pectoris (Atherosclerotic heart disease of [place] coronary artery without angina pectoris [I25.10]) Surgeons: [...] discharged once all PACU criteria has been met.[facility]08-31-2023 NotePatient: Lacy Alvarado Procedure Summary Date: 01/01/23 Room / Location: [facility] OR [address] [place] [address] Operating Room Anesthesia Start: 657 Anesthesia Stop: 1128 Procedures: CABG AND SIS (Chest) Echocardiography transesophageal real-time Diagnosis: Atherosclerotic heart disease of [place] coronary artery without angina pectoris (Atherosclerotic heart disease of [place] coronary artery without angina pectoris [I25.10]) Surgeons: [...] Allowed opportunity for questions and acknowledgement of understanding.[facility]08-31-2023 NoteArterial Line: Date/Time: 01/01/2023 7:05 AM [...] secured by Tegaderm and tape. Staffing Performed: LOG DRIVER Anesthesiologist: Cruzito Frost MD Resident/LOG DRIVER: Azar Rojo APRN - BOB Performed by: Azar Rojo APRN - BOB Authorized by: Azar Rojo APRN - [facility]08-31-2023 Consult note* Kaye Sanchez, GORDO - [facility] - 01/01/2023 11:40 AM EDTAssociated Order(s): IP CONSULT TO ENDOCRINOLOGY Department of Internal Medicine Division of Endocrinology, Diabetes, & Metabolism Endocrinology Note Patient Name: Lacy Alvarado : 1950 AGE: 72 y.o. Room/Bed: [facility] A Admission Date: 01/01/2023 Visit Date: 01/01/2023 Reason for Endocrine Consult: post op heart Provider/Team Requesting Consult: cts PCP: MAYDA GARCIA Outpt Mail List Processor: No ASSESSMENT: Cad s/p Cabgx4 Dm2 with hyperglycemia without extermination inspector insulin Stress hyperglycemia Chf Hld/htn PLAN: Continue [...] found for: CHOLHDLRATIO No results found for: AMCA25DDM No results found for: TSH, U5VGZAG, B0CMOIO, THYROIDAB Radiology reportsas per the Radiologist Radiology: ECG 12 lead Result Date: 01/01/2023 Sinus rhythm History/Other: Past Medical History: Past Medical History: Diagnosis Date CHF (congestive heart failure) ([facility]/HCC) (HCC) Diabetes mellitus (HCC) GERD (gastroesophageal reflux disease) Hyperlipidemia Hypertension RA (rheumatoid arthritis) ([facility]) Seizure (HCC) last seizure 5 months [...] coordination of care as documented in note. [employer] Work Phone: 1(560) 397-110908-31-2023 NoteAirway Date/Time: 01/01/2023 7:08 AM Urgency: scheduled Airway not difficult General Information and Staff Patient location during procedure: Procedural Anesthesiologist: Cruzito Frost MD Resident/LOG DRIVER: GORDO Kenney CRNA Performed: LOG DRIVER Performed by: GORDO Kenney CRNA Authorized by: [...] attempts: BVM Number of other approaches attempted: [address] [place], [place] 8500808-31-2023 Note Central Venous Line: Date/Time: 01/01/2023 7:26 [...] GORDO Kenney CRNA Authorized by: GORDO Kenney CRNAMcKenzie [facility]08-31-2023 Consult note* GORDO Bennett CNP - 01/01/2023 8:58 AM EDT Images from the original note were not included. [facility]: Critical Care Consultation Note Date: 01/01/23 PATIENT NAME: Lacy Alvarado : 1950 (72 y.o.) Reason for Consult: Critical Care & Vent Management HPI: Lacy Alvarado is a 72 y.o. female was referred to us by Dr. Bhanu Milian. Patient was admitted on12/18/22 to [facility] with CP history of CHF, CAD, [...] PM EDT I have personally performed a jtsp-hb-ddpk diagnostic evaluation on this patient on date of enjxxig51/31/23 . History, labs, imaging studies, and electronic medical record have been reviewed by me. This notedocumented by the []laundry housekeeper [x]SONYA reflects my history, exam, and medical [...] air leak in CTs No Pacer wires [employer] Phone: 1(699) 559-809408-31-2023 Note* Op Note - Azam Rose MD [...] intraoperative transesophageal echocardiography Surgeon: Azam Rose MD Pulverizing And Sifting Operator(s): [] Thomas Silva [x] Raymundo Marie [x] [...] Milian. Patient was admitted on 12/18/22 to [facility] with CP. She had a history [...] with closure. The sternum was reapproximated with bgtrhq-jt-ldknd wires and the overlying tissues were closed in multiple layers. The patient was transported to the intensive care unit in serious but stable condition. [facility] HospitalRepliconYhdokx30-38-1273 NotePatient: Lacy Jenny Procedure Information Date/Time: 01/01/23729 Procedures: CABG AND ISS (Chest) Echocardiography transesophageal real-time Location: [facility] OR [address] [place] [address] Operating Room Surgeons: Azam Rose MD Past Medical History: Past Medical History: No date: CHF (congestive heart failure) ([facility]/HCC) ([facility]) No date: Diabetes mellitus ([facility]) No date: GERD (gastroesophageal reflux disease) No date: Hyperlipidemia No date: Hypertension No date: RA (rheumatoid arthritis) ([facility]) No date: Seizure ([facility]) Comment: last seizure 5 months ago nathaniel mal 08/24 No date: Seizures ([facility]) No date: Sleep apnea Past Surgical [...] results found for this or any previous visit.[facility] 12-29-2022 NoteComprehensive Pre Surgical History and Physical ? Name: Lacy Alvarado : 1950 (Age-72 y.o.) Date of Service: Pt seen/examined on 12/29/2022 Procedure Information Date/Time: 01/01/23 0730 Procedures: CABG AND SIS (Chest) Echocardiography transesophageal real-time Location: [facility] OR [facility] Operating Room Surgeons: Azam Rose MD Chief [...] cardiopulmonary testing. 1) Atherosclerotic heart disease of [place] coronary artery without angina pectoris [I25.10] Pre-op diagnosis: Atherosclerotic heart disease of [place] coronary artery without angina pectoris [I25.10] - [...] who we are asked to see/evaluate by [place] [id number] for pre-operative evaluation prior to . CABG AND SIS (Chest) [86700 CPT(R)] Echocardiography transesophageal real-time [37296 CPT(R)] Anesthesia type: General Reason for Visit: [...] Milian. Patient was admitted on 12/18/22 to [facility] with CP. Per notes, patient has [...] office note 12/23/2022 ? Denies history of IL, TIA, CVA Past Medical History: Past Medical History: No date: CHF (congestive heart failure) (CMS/HCC) ([facility]) No date: Diabetes mellitus ([facility]) No date: GERD (gastroesophageal reflux disease) No date: Hyperlipidemia No date: Hypertension No date: RA (rheumatoid arthritis) ([facility]) No date: Seizure ([facility]) Comment: last seizure 5 months ago nathaniel mal 08/24 No date: Seizures ([facility]) No date: Sleep apnea Past Surgical [...] tablet Take 75 mg (more content not included)...[facility]08-28-2023 NoteComprehensive Pre Surgical History and Physical ? Name: Lacy Alvarado : 1950 (Age-72 y.o.) Date of Service: Pt seen/examined on 12/29/2022 Procedure Information Date/Time: 01/01/23 8805 Procedures: CABG AND SIS (Chest) Echocardiography transesophageal real-time Location: [facility] OR [facility] Operating Room Surgeons: Azam Rose MD Chief [...] cardiopulmonary testing. 1) Atherosclerotic heart disease of [place] coronary artery without angina pectoris [I25.10] Pre-op diagnosis: Atherosclerotic heart disease of [place] coronary artery without angina pectoris [I25.10] - [...] appropriate) 5. Medical Clearance/Consult from Internal Medicine ([facility]) 6. Shower/Wash Order (for designated surgeries) 7. LINA Screen and Sleep Clinic Referral (if appropriate) History Of Present Illness: 72 y.o. female who we are asked to see/evaluate by [place] [id number] for pre-operative evaluation prior to . CABG AND SIS (Chest) [97440 CPT(R)] Echocardiography transesophageal real-time [20759 CPT(R)] Anesthesia type: General Reason for Visit: [...] Milian. Patient was admitted on 12/18/22 to [facility] with CP. Per notes, patient has [...] office note 12/23/2022 ? Denies history of IL, TIA, CVA Past Medical History: Past Medical History: No date: CHF (congestive heart failure) ([facility]/HCC) ([facility]) No date: Diabetes mellitus ([facility]) No date: GERD (gastroesophageal reflux disease) No date: Hyperlipidemia No date: Hypertension No date: RA (rheumatoid arthritis) ([facility]) No date: Seizure ([facility]) Comment: last seizure 5 months ago nathaniel murray 08/24 No date: Seizures ([facility]) No date: Sleep apnea Past Surgical [...] surgery. Do not swallow. 12/24/22 12/24/22 Kassy Tabares, ELECTRIC MOTOR CONTROLS ASSEMBLER - RIGGING SUPERVISOR clopidogrel (Plavix) 75 MG tablet Take 75 mg (more content not included)...[facility] [id number] History and physical note* Yolande Robertsall, ELECTRIC MOTOR CONTROLS ASSEMBLER - RIGGING SUPERVISOR - 12/29/2022 2:00 PM EDT Images from the original note were not included. Comprehensive Pre Surgical History and Physical ? Name: Lacy Alvarado : 1950 (Age-72 y.o.) Date of Service: Pt seen/examined on 12/29/2022 Procedure Information Date/Time: 01/01/23 0730 Procedures: CABG AND SIS (Chest) Echocardiography transesophageal real-time Location: [facility] OR Operating Room Surgeons: Azam Rose MD Chief [...] cardiopulmonary testing. 1) Atherosclerotic heart disease of [place] coronary artery without angina pectoris [I25.10] Pre-op diagnosis: Atherosclerotic heart disease of [place] coronary artery without angina pectoris [I25.10] - [...] who we are asked to see/evaluate by [place] [id number] for pre-operative evaluation prior to. CABG AND SIS (Chest) [38602 CPT(R)] Echocardiography transesophageal real-time [39867 CPT(R)] Anesthesia type: General Reason for Visit: [...] Milian. Patient was admitted on 12/18/22 to [facility] with CP. Per notes, patient has [...] office note 12/23/2022 ? Denies history of IL, TIA, CVA Past Medical History: Past Medical History: No date: CHF (congestive heart failure) (CMS/HCC) ([facility]) No date: Diabetes mellitus ([facility]) No date: GERD (gastroesophageal reflux disease) No date: Hyperlipidemia No date: Hypertension No date: RA (rheumatoid arthritis) ([facility]) No date: Seizure ([facility]) Comment: last seizure 5 months ago nathaniel mal 08/24 No date: Seizures ([facility]) No date: Sleep apnea Past Surgical [...] Electronically signed by: Yolande Serra APRN - RIGGING SUPERVISOR Date: 12/29/2022 at 2:58 PM [employer] Phone: 1(417) 938-236508-28-2023 History and physical note* Yolande Serra APRN - RIGGING SUPERVISOR - 12/29/2022 2:00 PM EDT Images from the original note were not included. Comprehensive Pre Surgical History and Physical ? Name: Lacy Alvarado : 1950 (Age-72 y.o.) Date of Service: Pt seen/examined on 12/29/2022 Procedure Information Date/Time: 01/01/23 0730 Procedures: CABG AND SIS (Chest) Echocardiography transesophageal real-time Location: [facility] OR [facility] Operating Room Surgeons: Azam Rose MD Chief [...] cardiopulmonary testing. 1) Atherosclerotic heart disease of [place] coronary artery without angina pectoris [I25.10] Pre-op diagnosis: Atherosclerotic heart disease of [place] coronary artery without angina pectoris [I25.10] - [...] who we are asked to see/evaluate by [place] [id number] for pre-operative evaluation prior to. CABG AND SIS (Chest) [41828 CPT(R)] Echocardiography transesophageal real-time [90386 CPT(R)] Anesthesia type: General Reason for Visit: [...] Milian. Patient was admitted on 12/18/22 to [facility] with CP. Per notes, patient has [...] office note 12/23/2022 ? Denies history of IL, TIA, CVA Past Medical History: Past Medical History: No date: CHF (congestive heart failure) ([facility]/HCC) ([facility]) No date: Diabetes mellitus ([facility]) No date: GERD (gastroesophageal reflux disease) No date: Hyperlipidemia No date: Hypertension No date: RA (rheumatoid arthritis) (FORMERLY [facility]) No date: Seizure ([facility]ER[facility]) Comment: last seizure 5 months ago nathaniel murray 08/24 No date: Seizures ([facility]ER[facility]) No date: Sleep apnea Past Surgical [...] of surgery 12/24/22 Kassy Tabares APRN - SERENA pantoprazole (ProtoNix) 40 [...] 12/29/2022 at 2:58 PM documented in this encounterSSelect [id number] Telephone encounter Note* Telephone Encounter - GORDO Felix CNP - 12/24/2022 11:44 AM EDT Surg proc orders placed, medications e-scribed - talked to patient, answered all questions. [facility] [id number] Miscellaneous Notes* Telephone Encounter - GORDO Felix [...] [] Other: documented in this [facility]08-22-2023 NotePrep for Procedure Order Request: 12/23/22 Surgeon: Dr. Rose Surgery/Procedure: CABG & SIS Plan Admit: Yes PAT Appointment: 12/26/22 at 1:00 PM Date if yes: Date of Surgery/Procedure: 01/01/23 at 7:30 AM Medication needed held: [] None [] Other: Medication needed prescribed: [] None [x] Nasal ointment and mouth rinse [] Other: [facility]08-22-2023 Telephone encounter Note* Telephone Encounter [...] Nasal ointment and mouth rinse [] Other: [facility] [id number] History of Present illness Narrative* Azam Rose MD - 12/23/2022 10:30 AM EDT Images from the original note were not included. [facility] CARDIOVASCULAR & THORACIC SURGERY [address] [facility] [address] Dept: [phone] Dept Loc: [phone] Visit type: New Reason for Visit: Multivessel [...] Milian. Patient was admitted on 12/18/22 to [facility] with CP. Per notes, patient has [...] This note may have been dictated using Luminate Medical Practice Edition 2.6 and/or SpotlessCity Voice Recognition Feature. The document was proofread, however unrecognized voice recognition parts counter salesperson errors may be present. documented in this [facility]08-22-2023 History of Present illness Narrative* Azam Rose MD - 12/23/2022 10:30 AM EDT Images from the original note were not included. [facility] CARDIOVASCULAR & THORACIC SURGERY [address] [facility] [address] Dept: [phone] Dept Loc: [phone] Visit type: New Reason for Visit: Multivessel [...] Milian. Patient was admitted on 12/18/22 to [facility] with CP. Per notes, patient has [...] This note may have been dictated using Fluential Practice Edition 2.6 and/or SpotlessCity Voice Recognition Feature. The document was proofread, however unrecognized voice recognition parts counter salesperson errors may be present. documented in this [facility]08-18-2023 Discharge summary Author Edwin Kaplan [facility] December 19, 2022 3:41pm Note Date/Time December 19, 2022 3: 38pm [facility] Medical Records Department [address] [place] [address] Instructions for Home/Discharge Instructions 12/19/22 1537 MR#: [id number] Acct: [id number] Name: JENNYLACY L Rep #:[id number] : 1950 72 From: Edwin Mo [...] Follow-up with the cardiothoracic surgery team at [place] as discussed. Discharge Orders/Prescriptions Prescriptions: New isosorbide [...] Prolia 60 mg/mL syringe 60 mg subcut [id number] Qty: 1 2RF Discontinued isosorbide mononitrate 30 [...] MD; Dr. Bhanu Milian MD ~ Signed [facility] Work Phone: 1(577) 832-900808-18-2023 Procedure [facility] 12-19-2022 Consult note Author Bhanu Milian [facility] December 19, 2022 4:13pm Note Date/Time December 19, 2022 8: 32am [facility] Medical Records Department [address] [place] [address] Consultation - Cardiology 12/19/22 0830 MR#: [id number] Acct: [id number] Name: LACY ALVARADO Rep #:[id number] : 1950 72 From: Karen LÓPEZ PA PCP: Dr. Mayda Garcia MD Status:A DM DELFIN Location: [place] [address] <Statement entered by Bhanu Milian MD - [...] She was referred to Dr. Rose at [facility]. She will follow-up [...] is a 72 F who presented to [facility] ER on 12/18/22 with Chest pain, [...] 60%, circumflex 50% stenosis, RCA 60% stenosis. [facility] Medical History Abdominal pain Acute back pain Anemia Arthritis Atherosclerotic heart disease of [place] coronary artery without angina pectoris Cardiology follow-up [...] mg/mL subcutaneous syringe (Prolia) 60 mg subcut [id number] #1 mL 12/11/22 [Rx Last Taken Unknown] [...] Garcia MD; Dr. Bhanu Milian MD~ Signed [facility] Work Phone: 1(861) 983-129208-17-2023 History and physical note Author Edwin Kaplan [facility] December 18, 2022 4:38pm Note Date/Time December 18, 2022 4: 36pm [facility] Medical Records Department [address] [place] [address] H&P Exam - Hospitalist 12/18/22 1627 MR#: [id number] Acct: [id number] Name: LACY ALVARADO Rep #:[id number] 2 : 1950 72 From: Edwin martin DO PCP: Dr. Mayda Garcia MD Status:A DM DELFIN Location: [place] [address] HPI - General General Date of Admission: 12/18/22 Date of Service: 12/18/22 Chief Complaint: Chest pain HPI Narrative Lacy Alvarado is a 72-year-old female with history significant for CAD s/p stenting on Plavix (follows w/ Dr. Johnson), hypertension, seizures, tio-hhhjvqx-bhzolushv type 2 diabetes and GERD who presented to the [facility] ED on 12/18 with chest pain. [...] to view this. Chest x-ray was nonacute. [facility] Medical History Abdominal pain Acute back pain Anemia Arthritis Atherosclerotic heart disease of [place] coronary artery without angina pectoris Cardiology follow-up [...] mg/mL subcutaneous syringe (Prolia) 60 mg subcut [id number] #1 mL 12/11/22 [Rx Last Taken Unknown] [...] 43.9 L, Lymph % (Auto) 45.0 H, [place] % (Auto) 8.1, Eos % (Auto) 2.4, [...] Plavix (follows w/ Dr. Johnson), hypertension, seizures, dnm-nbpwghn-agmwixlkj type 2 diabetes and GERD who presented to the [facility] ED on 12/18 with chest pain. [...] isosorbide mononitrate and losartan at this time. Wegirish plan to restart after left heart cath tomorrow as able. 3. Seizure disorder ? Continue home divalproex. 4. Zaw-fizpzbr-bqjqxfxmg type 2 diabetes ? Home medication of Sitagliptin. Will monitor blood sugars here, can add on sliding scale insulin as needed. DVT prophylaxis: Heparin drip CODE STATUS: Full code, verified Expected disposition: Home, tomorrow Total clinical time spent by myself addressing the patient's medical issues, reviewing all the data, and collaborating with patient's care team: 55 minutes. Charges/Coding Visit Charges Inpatient E&M: 41805 Init Hosp L2 12/18/22 1638 <Electronically signed by Edwin Kaplan DO> Cosigner Signature (if applicable): CC: Dr. Edwin Kaplan DO; Dr. Mayda Garcia MD~ Signed [facility] Work Phone: 1(553) 331-424308-17-2023 Discharge summary Author Jossue Boyd [facility] December 18, 2022 8:57am Note Date/Time December 18, 2022 5: 38am [facility] Medical Records Department [address] [place] [address] Emergency Department Summary 12/18/22 MR#: [id number] Acct: [id number] Name: LACY ALVARADO Rep #:[id number] 2 : 1950 72 From: Turner Armendariz [...] history of PE or DVT. [facility] Medical History (Updated 12/18/22 @ 06:[address] Turner Armendariz DO) Abdominal pain Acute back pain Anemia Arthritis Atherosclerotic heart disease of [place] coronary artery without angina pectoris Cardiology follow-up [...] mg/mL subcutaneous syringe (Prolia) 60 mg subcut [id number] #1 mL 12/11/22 [Rx Last Taken Unknown] [...] coronary artery disease. Patient placed on a nuclear monitoring technician. EKG obtained on arrival shows sinus rhythm [...] 43.9 L Lymph % (Auto) 45.0 H [place] % (Auto) 8.1 Eos % (Auto) 2.4 [...] Prolia 60 mg/mL syringe 60 mg subcut [id number] Qty: 1 2RF Primary Care Provider: Mayda Garcia Referrals: Mayda Garcia MD [Primary Care Provider] - What to do if you have Problems For any increased pain, shortness of breath, bleeding, nausea or vomiting, chestpain, or any unexpected problems, contact your Primary Care Provider. Call [facility] ([phone]) or report to the closest Emergency Room. [...] cc: Dr. Mayda Garcia MD ~* Signed [facility] Work Phone: 1(592) 562-640008-17-2023 Discharge summary Author Jossue Boyd [facility] December 18, 2022 8:57am Note Date/Time December 18, 2022 5: 38am [facility] Medical Records Department [address] [place] [address] Emergency Department Summary 12/18/22 MR#: [id number] Acct: [id number] Name: LACY ALVARADO Rep #:[id number] 2 : 1950 72 From: Turner Armendariz [...] history of PE or DVT. [facility] Medical History (Updated 12/18/22 @ 06:[address] Turner Armendariz, DO) Abdominal pain Acute back pain Anemia Arthritis Atherosclerotic heart disease of [place] coronary artery without angina pectoris Cardiology follow-up [...] mg/mL subcutaneous syringe (Prolia) 60 mg subcut [id number] #1 mL 12/11/22 [Rx Last Taken Unknown] [...] coronary artery disease. Patient placed on a nuclear monitoring technician. EKG obtained on arrival shows sinus rhythm [...] 43.9 L Lymph % (Auto) 45.0 H [place] % (Auto) 8.1 Eos % (Auto) 2.4 [...] ID and State: [facility] / [place] Tel , Service support , 1 view [...] Prolia 60 mg/mL syringe 60 mg subcut [id number] Qty: 1 2RF Primary Care Provider: Mayda Garcia Referrals: Mayda Garcia MD [Primary Care Provider] - What to do if you have Problems For any increased pain, shortness of breath, bleeding, nausea or vomiting, chestpain, or any unexpected problems, contact your Primary Care Provider. Call [facility] ([phone]) or report to the closest Emergency Room. [...] cc: Dr. Mayda Garcia MD ~* Signed [facility] Work Phone: 1(148) 424-873304-13-[address] Freeman [facility] August 14, 2022 1:07am Note Date/Time August 13, 2022 10: 30pm [facility] Medical Records Department [address] [place] [address] Emergency Department Summary 08/13/22 MR#: [id number] Acct: [id number] Name: LACY ALVARADO Rep #:[id number] : 1950 71 From: Tin Freeman [...] in the past. 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 She complains of headache, and states that she does not usually have a headacheafter seizure. No fever, chills. PFSH PFSH Medical History Abdominal pain Acute back pain Anemia Arthritis Atherosclerotic heart disease of [place] coronary artery without angina pectoris Cardiology follow-up [...] mg/mL subcutaneous syringe (Prolia) 60 mg subcut [id number] #1 mL 05/20/22 [Rx Last Taken Unknown] [...] 45.6 L Lymph % (Auto) 44.1 H [place] % (Auto) 7.4 Eos % (Auto) 2.1 [...] Prolia 60 mg/mL syringe 60 mg subcut [id number] Qty: 1 0RF atorvastatin 80 mg tablet [...] your Primary Care Provider. Call [facility] ([phone]) or report to the closest Emergency Room. Call 911 if necessary. 08/14/22 0107 <Electronically signed by Tin Freeman DO> Cosigner Signature (if applicable): CC: Dr. Mayda Garcia MD ~ Signed [facility] Work Phone: 1([phone]) 375-491702-04-[address] Patel [facility] June 07, 2022 6:15pm Note Date/Time June 07, 2022 6 :12pm [facility] Medical Records Department [address] [place] [address] Emergency Department Summary 06/07/22 MR#: [id number] Acct: [id number] Name: LACY ALVARADO Rep #:[id number] 2 : 1950 71 From: Ezekiel Patel MD PCP: Dr. Mayda aGrcia MD Status:P RE ER Location: ED HPI [...] Immunization: 5-10 years Recent Illness/Hospitalization: Yes PFSH [facility] Medical History Abdominal pain Acute back pain Anemia Arthritis Atherosclerotic heart disease of [place] coronary artery without angina pectoris Cardiology follow-up [...] mg/mL subcutaneous syringe (Prolia) 60 mg subcut [id number] #1 mL 05/20/22 [Rx Last Taken Unknown] [...] II-XII intact bilaterally and moves all extremities Thania Coma Scale: document GCS findings Spontaneous Oriented [...] Prolia 60 mg/mL syringe 60 mg subcut [id number] Qty: 1 0RF Primary Care Provider: Mayda [...] your Primary Care Provider. Call [facility] ([phone]) or report to the closest Emergency Room. Call 911 if necessary. 06/07/221814 <Electronically signed by Ezekiel Patel MD> Cosigner Signature (if applicable): CC: Dr. Mayda Garcia MD ~ Signed [facility] Work Phone: 1(765) 293-324002-04-2023 Hospital Discharge instructions Additional Instructions Apply ice to your left chest wall and shoulder 6-10 times a dayWooKindred Healthcare Work Phone: Discharge summary Author Edwin Kaplan [facility] December 19, 2022 4:23pm Note Date/Time December 19, 2022 3: 41pm [facility] Medical Records Department [address] [place] [address] Discharge Summary 12/19/22 1541 MR#: [id number] Acct: [id number] Name: LACY ALVARADO Rep #:[id number] : 1950 72 From: Edwin Mo hugh DO PCP: Dr. Mayda Garcia MD Status:A DM DELFIN Location: [place] [address] Providers Date of Admission: 12/18/22 Date of [...] mg/mL subcutaneous syringe (Prolia) 60 mg subcut [id number] #1 mL 12/11/22 pantoprazole 40 mg tablet,delayed [...] Plavix (follows w/ Dr. Johnson), hypertension, seizures, gih-lybzwls-kzokvlons type 2 diabetes and GERD who presented to the [facility] ED on 12/18 with chest pain. [...] for an outpatient appointment with them in [place] early next week. She tolerated the catheterization well and was stable afterwards. A transthoracic echocardiogram was done post catheterization, read was pending on discharge. She was discharged home in stable condition. Discharge diagnoses: Chest pain, improved CAD s/p stenting Hypertension Seizures Wkc-nxqucub-thymwwubs type 2 diabetes GERD PCP follow-up: Patient will be following up with cardiothoracic surgery in [facility] discuss options for intervention on her high-grade [...] Follow-up with the cardiothoracic surgery team at [place] as discussed. Discharge Orders/Prescriptions Prescriptions: New isosorbide [...] Prolia 60 mg/mL syringe 60 mg subcut [id number] Qty: 1 2RF Discontinued isosorbide mononitrate 30 [...] Self Care Charges/Coding Visit Charges Inpatient E&M: 93978 Disch Hosp >30min 12/19/22 1623 <Electronically signed by Edwin Kaplan DO> Cosigner Signature (if applicable): CC: Dr. Edwin Kaplan DO; Dr. Mayda Garcia MD~ Signed [facility] Work Phone: Discharge summary Author Maurilio Bradford [facility] Note Date/Time November 14, 2024 4:[address] [facility] Medical Records Department [address] [place] [address] Discharge Summary 11/14/24 1618 MR#: [id number] Acct: [id number] Name: LACY ALVARADO Rep #:[id number] : 1950 73 From: Maurilio Bradford MD PCP: Dr. Mayda Garcia MD Status:A DM DELFIN Location: [place] [address] Providers Date of Admission: 11/13/24 Date of Discharge: 11/14/24 Primary Care Physician: Dr. Mayda Garcia MD Consultations 11/13/24 21:47 Consult: Cardiology Routine Consulting Provider: Eleonora Hernandez Reason for Consult: CP w/ slight trop bump, h/o CAD w/ stents and CABG, eval for stress vs LHC EMERGENT Consult: No MD Notified: Yes Date Notified: 11/14/24 Time Notified: 06:48 Method of Notification: Text Reason For Visit: CHEST PAIN Diagnosis Discharge Diagnosis (1) Chest pain: Status: Acute Code(s): R07.9 - Chest pain, unspecified Qualifiers: Chest pain type: unspecified Qualified Code(s): R07.9 - Chest pain, unspecified Plan Patient is a 73-year-old female who presented to [facility] ED on 11/13/2024 with chest pain. 1. Chest pain ? Patient was placed on a monitored bed [place] ruled out with serial cardiac enzymes. Patient has history of CAD with previous stent placement and CABG was kept n.p.o. and consultation placed to cardiology decision regarding subsequent evaluation left heart cath versus stress test defer to cardiology. Patient was seen in consultation by cardiology recommendation was made for patient to undergo subsequent evaluation with a nuclear stress 3. Coronary artery disease ? With previous stent and CABG. Patient remains on guideline directed medical therapy 3. Acute on chronic congestive heart failure with preserved ejection fraction ? Echo from 11/16/2023 demonstrated EF of 65%. Patient did receive furosemide with improvement in symptoms prescription written on discharge 4. Hypertension ? Blood pressure controlled, home medications continued with dose adjustment as needed 5. Rheumatoid arthritis ? Patient is on hydroxychloroquine 6. Seizure disorder ? Patient is on valproic acid continue with home dose 7. Diabetes mellitus type 2 with complications including peripheral neuropathy ? Patient was placed on Accu-Cheks AC and at bedtime with sliding scale coverage. 8. Diabetic polyneuropathy ? Patient is on gabapentin 9. Obesity 1 with BMI of 31.1 ? Weight loss advised 10. Anemia ? Secondary to chronic disorder monitoring H&H and transfuse if patient becomes symptomatic or hemoglobin falls below 7 11. Dyslipidemia ?Patient is on statin therapy, continued at home dose 12. DVT prophylaxis ? Subcu Lovenox Medications at Discharge Home Medications multivitamin 1 tab PO DAILY vitamin 05/20/19 blood-glucose meter (True Metrix Air Glucose Meter kit) #1 ea 02/03/20 calcium citrate 200 mg PO DAILY supplement 05/21/20 disability placard #1 ea 06/27/20 aspirin 81 mg tablet,delayed release (Adult Low Dose Aspirin) 81 mg PO DAILY heart 08/13/20 blood sugar diagnostic (True Metrix Glucose Test Strip) #100 ea 06/17/23 lancets 33 gauge #100 ea 06/17/23 oxycodone 5 mg tablet 5 mg PO Q4H PRN PRN Pain Score 4-10 3 days #20 tabs 11/18/23 Handicap Placard #1 ea 01/07/24 denosumab 60 mg/mL subcutaneous syringe (Prolia) 60 mg subcut [id number] bone health #1 mL 01/19/24 gabapentin 300 mg capsule 300 mg PO QHS #30 caps 02/14/24 metoprolol tartrate 25 mg tablet 25 mg PO QDAY heart #90 tabs 04/19/24 hydrocodone-acetaminophen 5-325mg 5mg-325mg 1 tab PO Q6H PRN PRN Pain 3 days #10TABLETS 07/14/24 ibuprofen 600 mg tablet 600 mg PO Q6H PRN PRN pain #20 TABLETS 07/14/24 hydroxychloroquine 200 mg tablet See Rx Instructions .Route .COMPLEX immunosuppressant #180 tabs 09/21/24 sitagliptin phosphate 100 mg tablet (Januvia) See Rx Instructions .Route .COMPLEX diabetes #90 tabs 09/21/24 atorvastatin 80 mg tablet 80 mg PO QHS cholesterol 09/28/24 neomycin 3.5 mg/g-polymyxin B 10,000 unit/g-dexameth 0.1 % eye oint 0.5 inch ophthalmic (eye) BID 09/28/24 divalproex 500 mg tablet,delayed release (Depakote) 500 mg .Route .COMPLEX seizures #90 tabs 11/07/24 rosuvastatin 40 mg tablet 40 mg PO DAILY 11/13/24 furosemide 40 mg tablet (Lasix) 40 mg PO DAILY #60 tabs 11/14/24 Hospital Course Summary of Care Provided Minutes Spent on Discharge: 35 Physical Exam Narrative GENERAL: cooperative HEENT: Atraumatic; normocephalic EYES; Anicteric, Normal Conjunctiva NECK; supple, normal thyroid, RESPIRATORY: Diminished to auscultation CARDIOVASCULAR: Regular S1 S2, GI: soft, normoactive bowel sounds, : No Renal angle tenderness; EXTREMITIES: No edema, no clubbing, MUSCULOSKELETAL: no muscle wasting NEURO: Awake; no lateralizing signs. SKIN: No Rash PSYCH; Flat affect Weight / BMI Weight Weight: 77.2 kg Body Mass Index (BMI) 31.1 ABG / Lab / Microbiology Data 11/14/24 05:21 11/14/24 05:21 Laboratory: Laboratory Results - last 24 hr 11/13/24 16:05: WBC 4.6, RBC 3.41 L, Hgb 11.1 L, Hct 33.3 L, MCV 97.7, MCH 32.6 H, MCHC 33.3, RDW Std Deviation 50.8 H, RDW Coeff of [place] 14.2, Plt Count 224, MPV 11.5, Immature Gran % (Auto) 0.400, Neut % (Auto) 55.5, Lymph % (Auto) 35.9,[place] % (Auto) 6.3, Eos % (Auto) 1.7, Baso % (Auto) 0.2, Absolute Neuts (auto) 2.6, Absolute Lymphs (auto) 1.65, Nucleated RBC % 0, D-Dimer Quant (PE/DVT) Cancelled, Sodium 140, Potassium 4.5, Chloride 104, Carbon Dioxide 23.9, Anion Gap 12, BUN 21 H, Creatinine 0.82, Est GFR (MDRD) Non-Af 77, BUN/Creatinine Ratio 25.2 H, Glucose 126 H, Hemoglobin A1c 6.6 H, Calcium 9.0, Troponin T High Sens 9 D 11/13/24 18:15: D-Dimer Quant (PE/DVT) 0.27 11/13/24 18:20: Troponin T Hi Sens 2 Hr 18 H 11/13/24 20:04: Troponin T Hi Sens 4Hr 10, NT pro BNP II 77, TSH 3.680 11/14/24 05:21: WBC 5.6, RBC 3.54 L, Hgb 11.5 L, Hct 34.3 L, MCV 96.9, MCH 32.5 H, MCHC 33.5, RDW Std Deviation 50.5 H, RDW Coeff of [place] 14.1, Plt Count 211, MPV 10.9, Sodium 142, Potassium 4.4, Chloride 104, Carbon Dioxide 26.0, Anion Gap 11, BUN 20 H, Creatinine 1.11, Estim Creat Clear Calc 44.72 L, Est GFR (MDRD) Non-Af 53 L, BUN/Creatinine Ratio 17.6, Glucose 111 H, Calcium 8.8, Triglycerides 85, Cholesterol 230 H, LDL Cholesterol, Calc 162, VLDL Fpiqxrgzhve02, HDL Cholesterol 52, Cholesterol/HDL Ratio 4.47 Microbiology: Microbiology 11/13/24 22:25 Mucosa - Nose Respiratory Panel (PCR) - Final Radiography Diagnostic Testing: Radiology Impression Chest X-Ray 11/13/24 17:17 IMPRESSION: Mildly prominent interstitial markings could be the result of hypoventilatory change, pulmonary edema, or atypical infection. Reading Location: [id number] D/C Instructions DC O2, CPAP, BIPAP Needs Home O2 Discharge instructions: No Meaningful Use Info Meaningful Use Meaningful Use Diagnoses (Choose all that apply): CHF CHF KWADWO/ARB ordered at discharge?: No Reason KWADWO/ARB not ordered?: Not indicated Documented LVEF (%): 65 Discharge Plan Admission Admit Date/Time: 11/13/24 20:02 Attending Provider: Maurilio Bradford Primary Care Provider: Mayda Garcia Consulting Providers: Eleonora Hernandez; Edwin Kaplan Discharge Orders/Prescriptions Prescriptions: New furosemide [Lasix] 40 mg tablet 40 mg PO DAILY Qty: 60 0RF Continued multivitamin Tablet 1 [...] check twice a day and as needed divalproex [Depakote] 500 mg tablet,delayed release (DR/EC) 500 mg .ROUTE .COMPLEX Qty: 90 10RF Rx Instructions: Take 1 tablet orally qAM and 2 tablets qPM atorvastatin 80 mg tablet 80 mg PO QHS neomycin-polymyxin B-dexameth 3.5 mg/g-10,000 unit/g-0.1 % ointment 0.5 inch ophthalmic (eye) BID hydroxychloroquine 200 mg tablet See Rx Instructions .ROUTE .COMPLEX Qty: 180 1RF Dose Instruction: TAKE 1 TABLET BY MOUTH TWICE DAILY WITH MEALS Rx Instructions: TAKE 1 TABLET BY MOUTH TWICE DAILY WITH MEALS Januvia 100 mg tablet See Rx Instructions .ROUTE .COMPLEX Qty: 90 1RF Dose Instruction: TAKE 1 TABLET BY MOUTH DAILY Rx Instructions: TAKE 1 TABLET BY MOUTH DAILY oxycodone 5 mg Tablet 5 mg PO Q4H PRN PRN (Reason: Pain Score 4-10) 3 Days Qty: 20 0RF hydrocodone-acetaminophen 5-325 mg tablet 1 tab PO Q6H PRN PRN (Reason: Pain) 3 Days Qty: 10 0RF ibuprofen 600 mg tablet 600 mg PO Q6H PRN PRN (Reason: pain) Qty: 20 0RF gabapentin 300 mg capsule 300 mg PO QHS Qty: 30 0RF rosuvastatin 40 mg tablet 40 mg PO DAILY (DME) blood-glucose meter [True Metrix Air Glucose [...] Prolia 60 mg/mL syringe 60 mg subcut [id number] Qty: 1 2RF Referrals / Follow Up: Mayda Garcia MD [Primary Care Provider] - Within 2 Weeks Disposition Disposition (needs filled in before D/C Order can be placed): Home, Self Care Charges/Coding Visit Charges Inpatient E&M: 29410 Disch Hosp >30min 11/14/24 1630 <Electronically signed by Maurilio Bradford MD> Cosigner Signature (if applicable): CC: Dr. Maurilio Bradford MD; Dr. 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 Epilepsy, unspecified, not i ntractable, without status epilepticus chronic Occipital neuralgia chronic BMI 32.0-32.9,adult acute LINA (obstructive sleep apnea) chronic Health care maintenance acut e Right shoulder pain acute Essential (primary) hypertension chronic Seizures chronic Type 2 diabetes mellitus chr onic [facility] Work Phone: Evaluation note* Diagnosis Onset Date Resolution Status Cerebrovascular disease 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 Epilepsy, unspecified, not i ntractable, without status epilepticus chronic Occipital neuralgia chronic BMI 32.0-32.9,adult acute LINA (obstructive sleep apnea) chronic Health care maintenance acut e Right shoulder pain acute Essential (primary) hypertension chronic Seizures chronic Type 2 diabetes mellitus chr onic Cough acute Chest pain acute Intractable pain acute Neck pain acute [facility] Work Phone: Evaluation note* Diagnosis Onset Date Resolution Status Cerebrovascular disease 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 Epilepsy, unspecified, not i ntractable, without [...] stent placement March 222017 chronic Hyperlipidemia chronic [facility] Work Phone: Evaluation note* Diagnosis [...] stent placement March 222017 chronic Hyperlipidemia chronic [facility] Work Phone: Evaluation note* Diagnosis Onset Date Resolution Status Cough acute Chest pain acute Intractable pain acute Neck pain acute Cervical radiculopathy acute Left shoulder pain acute Neck pain acute Left upper extremity numbness acute Essential (primary) hypertension chronic History of coronary artery stent placement March 222017 chronic Hyperlipidemia chronic Obesity acute LINA (obstructive sleep apnea) chronic [facility] Work Phone: Evaluation note* Diagnosis Onset Date Resolution Status Obesity acute LINA (obstructive sleep apnea) chronic Seizures chronic Exposure to COVID-19 virus a cute [facility] Work Phone: Evaluation note* Diagnosis Onset Date Resolution Status Exposure to COVID-19 virus a cute Pain in left upper arm acute Essential (primary) hypertension chronic Seizures chronic Type 2 diabetes mellitus chr onic Osteoporosis acute [facility] Work Phone: Evaluation note* Diagnosis [...] chronic Type 2 diabetes mellitus chr onic [facility] Work Phone: Evaluation note* Diagnosis Onset Date Resolution Status Memory changes acute Epilepsy, unspecified, not i ntractable, without status epilepticus chronic Memory loss acute Epilepsy, unspecified, not i ntractable, without status epilepticus chronic Right hip pain acute Essential (primary) hypertension chronic Type 2 diabetes mellitus chr onic Osteoarthritis of right knee noneactive [facility] Work Phone: Evaluation note* Diagnosis [...] coronary artery disease acute History of hypertension acil e [facility] Work Phone: Evaluation note* Diagnosis [...] stent placement March 222017 chronic Hyperlipidemia chronic [facility] Work Phone: Evaluation note* Diagnosis [...] stent placement March 222017 chronic Hyperlipidemia chronic [facility] Work Phone: Evaluation note* Diagnosis Coronary artery disease due to calcified coronary lesion- Primary Atherosclerotic heart disease of [place] coronary artery without angina pectoris documented in this encounter [facility] [place] [facility] Diagnosis CAD in [place] artery- Primary Preoperative clearance Unspecified pre-operative examination Atherosclerotic heart disease of [place] coronary artery without angina pectoris documented in this encounter [facility] [place] [facility]* Diagnosis Preoperative clearance Unspecified pre-operative examination Atherosclerotic heart disease of [place] coronary artery without angina pectoris documented in this encounter [facility] [place] [facility]* Diagnosis Coronary artery disease due to calcified coronary lesion- Primary documented in this encounter [facility]* Diagnosis CAD in [place] artery- Primary CAD in [place] artery Coronary artery disease involving coronary bypass graft, unspecified whether angina present, unspecified whether [place] or transplanted heart S/P CABG (coronary artery bypass graft) Postsurgical aortocoronary bypass status documented in this encounter [facility]* Diagnosis Onset Date Resolution Status [...] arthritis acute Stroke acute Hyperlipidemia chronic Hypertension [facility] Work Phone: Evaluation note* Diagnosis S/P CABG (coronary artery bypass graft)- Primary Postsurgical aortocoronary bypass status documented in this encounter [facility]* Diagnosis Onset Date Resolution Status [...] Tachycardia acute Essential (primary) hypertension chronic Hyperlipidemia [facility] Work Phone: Evaluation note* Diagnosis Onset [...] bypass graft chronic Hyperlipidemia chronic Hypertension chronic [facility] Work Phone: Evaluation note* Diagnosis [...] Fatigue acute Osteoarthritis of right knee noneactive [facility] Work Phone: Evaluation note* Diagnosis [...] graft chronic Obesity chronic Obstructive sleep apnea 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 Chest wall tenderness chroni c Coronary artery disease 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 Essential (primary) hypertension chronic GERD (gastroesophageal reflux disease) chronic Osteoporosis chronic Rheumatoid arthritis chronic Type 2 diabetes mellitus chr onic [facility] Work Phone: Evaluation note* Diagnosis Onset Date Resolution Status Fatigue acute Fatigue acute Osteoarthritis of right knee noneactive History of coronary artery bypass graft chronic Obesity chronic Obstructive sleep apnea 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 Chest wall tenderness chroni c Coronary artery disease 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 Essential (primary) hypertension chronic GERD (gastroesophageal reflux disease) chronic Osteoporosis chronic Rheumatoid arthritis chronic Type 2 diabetes mellitus chr onic Fatigue acute Abdominal pain chronic [facility] Work Phone: Evaluation note* Diagnosis Onset Date Resolution Status Fatigue acute Fatigue acute Osteoarthritis of right knee noneactive History of coronary artery bypass graft chronic Obesity chronic Obstructive sleep apnea 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 Chest wall tenderness chroni c Coronary artery disease 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 Essential (primary) hypertension chronic GERD (gastroesophageal reflux disease) chronic Osteoporosis chronic Rheumatoid arthritis chronic Type 2 diabetes mellitus chr onic Fatigue acute Abdominal pain chronic Abdominal pain chronic [facility] Work Phone: Evaluation note* Diagnosis Onset Date Resolution Status Fatigue acute Osteoarthritis of right knee noneactive History of coronary artery bypass graft chronic Obesity chronic Obstructive sleep apnea 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 Chest wall tenderness chroni c Coronary artery disease 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 Essential (primary) hypertension chronic GERD (gastroesophageal reflux disease) chronic Osteoporosis chronic Rheumatoid arthritis chronic Type 2 diabetes mellitus chr onic Fatigue acute Abdominal pain chronic Abdominal pain chronic [facility] Work Phone: Evaluation note* Diagnosis Onset Date Resolution Status Fatigue acute Osteoarthritis of right knee noneactive History of coronary artery bypass graft chronic Obesity chronic Obstructive sleep apnea 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 Chest wall tenderness chroni c Coronary artery disease 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 Essential (primary) hypertension chronic GERD (gastroesophageal reflux disease) chronic Osteoporosis chronic Rheumatoid arthritis chronic Type 2 diabetes mellitus chr onic Fatigue acute Abdominal pain chronic Abdominal pain chronic Osteoporosis chronic [facility] Work Phone: History and physical note Author Edwin Kaplan [facility] Note Date/Time November 13, 2024 8:50 pm [facility] Medical Records Department [address] [place] [address] H&P Exam - Hospitalist 11/13/242001 MR#: [id number] Acct: [id number] Name: LACY ALVARADO Rep #:[id number] : 1950 73 From: Edwin martin DO PCP: Dr. Mayda Garcia MD Status:R EG ER Location: ED HPI - General General Date of Service: 11/13/24 Chief Complaint: chest pain HPI Narrative LACY ALVARADO, is a 73 F who presented to [facility] ED on 11/13/2024 with chest pain. Medical history significant for CAD with stenting [id number] and CABG x 4 in December 2022, HFpEF, obesity with LINA, seizure disorder, RA,hypertension, hyperlipidemia and neuropathy. She follows with our cardiology group, last saw them in the office in September. Reported left-sided chest pain/tenderness then and notably had been seen in the ED on 09/16 for this as well. Workup was negative for that ED visit and cardiology suspected that the pain could be nerve related from her CABG with vein harvesting. Was also thought that her anemia could be contributing to this pain. Her hemoglobin was 8.6 on 09/16 for unclear reason, as repeat hemoglobin was back to baseline at 11.2 on 09/22. Patient presents today with acute onset left-sided chest pain that began midday. She was feeling fine this morning and went to confucianist, but shortly after she got home and was sitting down she developed sudden onset sharpchest pain under the left breast radiating into her left arm. In the ED she wasmildly hypertensive to the 160s systolic, otherwise in normal sinus rhythm and stable on room air. CBC and BMP were benign. Hemoglobin notably 11.1, at baseline. Troponin trend 9 > 18. EKG showed sinus rhythm with no acute ST changes. Chest x-ray showed mildly prominent interstitial markings concerning for pulmonary edema. Patient was given doses of IV morphine, Zofran and nitro in the ED with mild relief of pain. Given chest pain with history as above, hospitalist was contacted for admission. I saw the patient at bedside in the ED, family member was present. Patient was sitting back fairly comfortably in bed and conversing normally. She was reporting ongoing left-sided chest pain, only slightly improved from earlier today. Denies any radiation of the pain currently. Denied any shortness of breath, nausea, fevers or chills. Denies any recent URI symptoms. No other acute concerns currently. Will be admitted for further management. [facility] Medical History (Updated 11/13/24 @ 19:[address] Turner Armendariz, DO) Keloid scar of skin Vertigo Chest pain Dyspnea on exertion Wears [...] in nonobese Obesity Urinary frequency Conversion disorder Non-toxic goiter Essential (primary) hypertension RIGHT FOOT HEEL SPUR Atherosclerotic heart disease of [place] coronary artery without angina pectoris Rheumatoid arthritis [...] 06/17/23 Unknown Rx Metrix Glucose Test Strip) lancets 33 gauge #100 ea 06/17/23 Unknown Rx oxycodone 5 mg tablet 5 mg PO Q4H PRN PRN Pain Sco re 11/18/23 Unknown Rx 4-10 3 days #20 tabs Handicap Placard #1 ea 01/07/24 Unknown Rx denosumab 60 mg/mL subcutaneous 60 mg subcut [id number] bone health 01/19/24 Unknown Rx syringe (Prolia) #1 mL gabapentin 300 mg capsule 300 mg PO QHS #30 caps 02/13 Unknown Rx metoprolol tartrate 25 mg tablet 25 mg PO QDAY heart # 90 tabs 04/19/24 Unknown Rx hydrocodone-acetaminophen 5-325mg 1 tab PO Q6H PRN PRN Pain 3 days 07/14/24 Unknown Rx 5mg-325mg #10 TABLETS ibuprofen 600 mg tablet 600 mg PO Q6H PRN PRN pain # 20 07/14/24 Unknown Rx TABLETS hydroxychloroquine 200 mg tablet See Rx Instructions . Route 09/21/24 Unknown Rx .COMPLEX immunosuppressant #180 tabs sitagliptin phosphate 100 mg See Rx Instructions .Rout e 09/21/24 Unknown Rx tablet (Januvia) .COMPLEX diabetes #90 tabs atorvastatin 80 mg tablet 80 mg PO QHS cholesterol Unknown History neomycin 3.5 mg/g-polymyxin B 0.5 inch ophthalmic (eye ) BID 09/28/24 Unknown History 10,000 unit/g-dexameth 0.1 % eye oint divalproex 500 mg tablet,delayed 500 mg .Route .COMPLE X seizures 11/07/24 Unknown Rx release (Depakote) #90 tabs rosuvastatin 40 mg tablet 40 mg PO DAILY 11/13/24 Unkn own History Allergy/AdvReac Type Severity Reaction Status Date / Time prednisone AdvReac Severe Hives Verified 11/13/24 16:26 Family History (Reviewed 09/28/24 @ 12:57 by Vanita Venegas DIRECTOR OF REGULATORY AFFAIRS, DIRECTOR OF REGULATORY AFFAIRS-C) Grandmother Alcoholism Cancer Arthritis Mother Alcoholism Diabetes blood clots Hypertension Grandfather Heart disease Sister Thyroid disorder Other Breast cancer Cervical cancer Colon cancer Surgical History History of coronary artery bypass graft History of cardiac catheterization History of left heart catheterization (09/20/18) History of coronary artery stent placement (03/22/18) History of carpal tunnel surgery History of section H/O: hysterectomy Social History (Reviewed 09/28/24 @ 12:57 by Vanita Venegas DIRECTOR OF REGULATORY AFFAIRS, DIRECTOR OF REGULATORY AFFAIRS-C) household members: none housing: apartment Smoking Status: Never smoker second hand exposure: No alcohol intake: current alcohol intake frequency: holidays/special occasions only substance use type: does not use what type of physical activity do you participate in: none ROS Constitutional Constitutional: Denies chills, fatigue, fever(s) or weakness Eyes Eyes: Denies change in vision Cardiovascular Cardiovascular: Reports chest pain and edema; Denies dyspnea on exertion, lightheadedness, orthopnea or palpitations Respiratory/Chest Respiratory/Chest: Denies cough, shortness of breath at rest, shortness of breath with exertion or wheezing Gastrointestinal Gastrointestinal: Denies abdominal pain Genitourinary Genitourinary: Denies dysuria Musculoskeletal Musculoskeletal: Denies arthralgias or myalgias Neurologic Neurologic: Denies dizziness, focal weakness or headache(s) Vital Signs Vital Signs Vital Signs: 11/13/24 16:23 11/13/24 16:26 11/13/24 17:09 Temperature 98.4 F Temperature Source Oral Pulse Rate 34 L Respiratory Rate 29 H Respiratory Effort Normal Non-Labored Blood Pressure 162/77 H Blood Pressure Mean 105 Pulse Ox 100 Oxygen Delivery Method Room Air Room Air 11/13/24 17:16 11/13/24 18:00 11/13/24 19:00 Temperature Temperature Source Pulse Rate 84 81 84 Respiratory Rate 22 H 19 H 19 H Respiratory Effort Blood Pressure 148/77 H 149/76 H 155/81 H Blood Pressure Mean 100 100 105 Pulse Ox 97 98 98 Oxygen Delivery Method Room Air Room Air Room Air Physical Exam Const alert, oriented x3 and no apparent distress Constitutional Narrative: Elderly female, obese, sitting back in bed fairly comfortably and conversing normally. General Appearance: cooperative and comfortable HEENT normocephalic, head/scalp atraumatic, hearing grossly normal bilaterally, nasal mucous membranes and turbinates normal and moist oral mucous membranes Eyes PERRL, EOMs intact bilaterally and conjunctivae normal Neck full ROM Chest inspection of chest normal Resp normal respiratory effort and no use of accessory muscles Resp Narrative: Breathing comfortably on room air at rest. Mildly diminished breath sounds in bilateral lung bases with mild crackles noted, no wheezing noted. Cardio regular rate, regular rhythm, no murmurs and peripheral pulses 2+ throughout GI normal to inspection, nondistended, normoactive bowel sounds, soft to palpation,non-tender and non-distended Back/Spine normal ROM Extremity full ROM Extremity Narrative: +1-2 lower extremity pitting edema noted bilaterally. Skin no rashes or lesions noted Psych mental status grossly normal Mood & Affect: anxious Results Lab / Micro Data 11/13/24 16:05 11/13/24 16:05 Labs: Laboratory Results - last 24 hr 11/13/24 16:05: WBC 4.6, RBC 3.41 L, Hgb 11.1 L, Hct 33.3 L, MCV 97.7, MCH 32.6 H, MCHC 33.3, RDW Std Deviation 50.8 H, RDW Coeff of [place] 14.2, Plt Count 224, MPV 11.5, Immature Gran % (Auto) 0.400, Neut % (Auto) 55.5, Lymph % (Auto) 35.9,[place] % (Auto) 6.3, Eos % (Auto) 1.7, Baso % (Auto) 0.2, Absolute Neuts (auto) 2.6, Absolute Lymphs (auto) 1.65, Nucleated RBC % 0, D-Dimer Quant (PE/DVT) Cancelled, Sodium 140, Potassium 4.5, Chloride 104, Carbon Dioxide 23.9, Anion Gap 12, BUN 21 H, Creatinine 0.82, Est GFR (MDRD) Non-Af 77, BUN/Creatinine Ratio 25.2 H, Glucose 126 H, Calcium 9.0, Troponin T High Sens 9 D 11/13/24 18:15: D-Dimer Quant (PE/DVT) 0.27 11/13/24 18:20: Troponin T Hi Sens 2 Hr 18 H Imaging Radiology Impression Chest X-Ray 11/13/24 17:17 IMPRESSION: Mildly prominent interstitial markings could be the result of hypoventilatory change, pulmonary edema, or atypical infection. Reading Location: [id number] Assessment & Plan Assessment/Plan (1) Chest pain: PLAN: Plan Patient is a 73-year-old female who presented to [facility] ED on 11/13/2024 with chest pain. 1. Chest pain, ACS rule out ? Admit under observation status to PCU. Cardiology consulted. Reported acute onset left chest pain leading to presentation; however on chart review had similar ED visit in September with negative workup and cardiology suspected possible neuropathy causing this pain. Troponin trend 9 > 18, will follow-up third troponin. EKG with sinus rhythm and no ST changes. Chest x-ray with suspected mild pulmonary edema noted. NT proBNP ordered. Will continue home baby aspirinand high intensity statin. Will keep n.p.o. at midnight and defer to cardiologyon consideration of stress testing versus left heart cath. Continue cardiac monitoring. Lipid panel, A1c and TSH ordered. 2. History of CAD with stenting and CABG, chronic HFpEF, hypertension, hyperlipidemia ? Follows with outpatient cardiology, last office visit in September. See HPI for further details on history. In short, had stenting in 2017 and CABG x 4 in 2022. Last echo in 11/2023 with EF 65%, no other concerning findings. Last lipid panel in September with total cholesterol 206, LDL 135, HDL 58. Repeat lipid panel ordered as above. Continue high-intensity statin. Continue home and Lopressor. Chronic medical conditions: ? Class I obesity with LINA: Follows with outpatient pulmonology. BMI 32 on admit. Complicates hospital course, care and prognosis. Continue home PAP therapy at night. ? RA: Continue home hydroxychloroquine. ? Neuropathy: Continue home gabapentin. ? Seizure disorder: Follows with outpatient neurology. Continue home divalproex. ? Osteoporosis: Continue denosumab injections every 6 months on discharge. ? Type 2 diabetes mellitus: Last A1c 6.4% in August, repeat A1c ordered as above. Blood glucose 126 on admit. Hold home sitagliptin. Will hold on insulin orders for now, can start as needed. DVT prophylaxis: Lovenox CODE STATUS: Full code, verified Expected disposition: Home, TBD Total clinical time spent by myself addressing the patient's medical issues, reviewing all the data, and collaborating with patient's care team: 75 minutes. Charges/Coding Visit Charges Inpatient E&M: 44897 Init Hosp L3 11/13/242049 <Electronically signed by Edwin Kaplan DO> Cosigner Signature (if applicable): CC: Dr. Edwin Kaplan DO; Dr. Mayda Garcia MD~ Signed [facility] Work Phone: Hospital Discharge instructions Additional Instructions Discharge home 01/26/2023, pending appeal, [facility] PT/OT/SN, Front wheeled walker, bedside commode.[facility] Work Phone: Hospital Discharge instructions Additional Instructions EKG normal cardiac workup negative. Chest CT discussed with radiologist no concern for fracture. Follow-up with your doctor. Take medications as prescribed.[facility] Work Phone: Hospital Discharge instructions Additional Instructions Ice to your chest wall to decrease pain and bruising. The doctors saw you yesterday wrote for a narcotic pain medication which she can pick up worker from the pharmacy and use. Pain. Follow-up with your doctor if not improving.[facility] Work Phone: Reason for referral (narrative)No reason for referral [facility] Work [facility]: Summary Purpose Family History No [...] Date/ Time Advance Directives No September 26 1:14pm Living Will No October 25, 2021 2:03pm Power of Asset Management Analyst No October 25 2:03pm Advance Directive Response Recorded Date/ Time Name of Medical Power of Asset Management Analyst bhupinder barakat November 28, 2021 7:50pm Advance Directives No September 26 1:14pm Living Will Yes November 28, 2021 7:50pm Power of Asset Management Analyst Yes November 28 7:50pm Advance Directive Response Recorded Date/ Time Name of Medical Power of Asset Management Analyst bhupinder barakat November 28, 2021 7:50pm Advance Directives No September 26 1:14pm Living Will No December 17 3:55am Power of Asset Management Analyst No December 17 3:55am Advance Directive Response Recorded Date/ Time Name of Medical Power of Asset Management Analyst bhupinder barakat November 28, 2021 7:50pm Name of Medical Power of Asset Management Analyst bhupinder barakat January 02, 2022 12:50pm Advance Directives No September 26 1:14pm Living Will Yes January 02 12:50pm Power of Asset Management Analyst Yes January 02, 2022 12:50pm Advance Directive Response Recorded Date/ Time Name of Medical Power of Asset Management Analyst bhupinder barakat November 28, 2021 6:50pm Name of Medical Power of Asset Management Analyst bhupinder barakat January 02, 2022 11:50am Advance Directives No September 26 12:14pm Living Will No March 14 5:43pm Power of Asset Management Analyst No March 14, 2022 5:43pm Advance Directive Response Recorded Date/ Time Name of Medical Power of Asset Management Analyst bhupinder barakat January 02, 2022 11:50am Advance Directives No September 26 12:14pm Living Will No March 29 10:41am Power of Asset Management Analyst No March 29, 2022 10:41am Advance Directive Response Recorded Date/ Time Advance Directives No September 26 12:14pm Living Will No November 26th, 2 022 10:41am Power of Asset Management Analyst No March 29, 2022 10:41am Advance Directive Response Recorded Date/ Time Name of Medical Power of Asset Management Analyst BHUPINDER MARTÍNEZ June 06, 2022 10:51am Advance Directives No September 26 12:14pm Living Will No June 07 6:10pm Power of Asset Management Analyst No June 07, 2022 6:10pm Advance Directive Response Recorded Date/ Time Name of Medical Power of Asset Management Analyst BHUPINDER MARTÍNEZ June 06, 2022 11:51am Name of Medical Power of Asset Management Analyst Duke Barakat August 13, 2022 10:00pm Advance Directives No September 26 1:14pm Living Will Yes August 13, 2022 10:00pm Power of Asset Management Analyst Yes August 13 10:00pm Advance Directive Response Recorded Date/ Time Name of Medical Power of Asset Management Analyst Duke Barakat August 13, 2022 10:00pm Advance Directives No September 26 1:14pm Living Will Yes August 13, 2022 10:00pm Power of Asset Management Analyst Yes August 13 10:00pm Advance Directive Response Recorded Date/ Time Name of Medical Power of Asset Management Analyst Duke Barakat August 13, 2022 10:00pm Advance Directives No December 31, 2020 12:33pm Living Will Yes August 13, 2022 10:00pm Power of Asset Management Analyst Yes August 13 10:00pm Advance Directive Response Recorded Date/ Time Name of Medical Power of Asset Management Analyst BHUPINDER SENIOR December 18, 2022 5:26am Advance Directives No December 31, 2020 12:33pm Living Will Yes December 18 5:26am Power of Asset Management Analyst Yes December 18, 2 023 5:26am Advance Directive Response Recorded Date/ Time Name of Medical Power of Asset Management Analyst BHUPINDER SENIOR December 18, 2022 5:26am Advance Directives No December 31, 2020 12:33pm Living Will Yes December 18 10:41am Power of Asset Management Analyst No December 18, 2 023 10:41am Latest [...] Date/ Time Name of Medical Power of Asset Management Analyst BHUPINDER SENIOR December 18, 2022 5:26am Name of Medical Power of Asset Management Analyst Bhupinder Starkey, n iece January 13, 2023 2:24pm Advance Directives No December 31, 2020 12:33pm Living Will Yes January 13, 2023 2:24pm Power of Asset Management Analyst Yes January 2:24pm Documents on File Type Date Recorded Patient Loss Prevention Agent Expl anation Advance Directives and Livin g Will 01/12/2023 1:40 PM Latest Code Status on File Code Status Date Activated Date Inactivated Comments Full Code 01/01/2023 5:45 AM 01/11/2023 4:53 PM Healthcare Agents on File Name Relationship Healthcare Agent [facility] p Communication Bhupinder Ascencio [facility] Care Agent Advance Directive Response Recorded Date/ Time Advance Directives No February 02, 2023 11:35am Living Will Yes February 02 11:35am Power of Asset Management Analyst Yes February 02 023 11:35am Name of Medical Power of Asset Management Analyst BHUPINDER SENIOR December 18, 2022 5:26am Name of Medical Power of Asset Management Analyst Bhupinder Starkey n iece January 13, 2023 2:24pm Advance Directive Response Recorded Date/ Time Advance Directives No February 02, 2023 10:35am Living Will Yes February 02 10:35am Power of Asset Management Analyst Yes February 02 023 10:35am Name of Medical Power of Asset Management Analyst BHUPINDER SENIOR December 18, 2022 4:26am Name of Medical Power of Asset Management Analyst Bhupinder Starkey, n iece January 13, 2023 1:24pm Advance Directive Response Recorded Date/ Time Advance Directives No February 02, 2023 10:35am Living Will Yes February 02 10:35am Power of Asset Management Analyst Yes February 02 023 10:35am Advance Directive Response Recorded Date/ Time Advance Directives on File No 2023 9:39am Advance Directives No February 02, 2023 10:35am Living Will Yes June 01 9:57am Power of Asset Management Analyst Yes June 01, 2023 9:39am Advance Directive Response Recorded Date/ Time Advance Directives on File No Kita ry 2023 10:39am Advance Directives No February 02, 2023 11:35am Living Will Yes June 01 10:57am Power of Asset Management Analyst Yes June 01, 2023 10:39am Advance Directive Response Recorded Date/ Time Living Will Yes February 02 11:35am Power of Asset Management Analyst Yes February 02 11:35am Living Will Yes November 15, 2023 3:30pm Power of Asset Management Analyst No November 14 3:30pm Living Will No July 14, 2024 5:08pm Power of Asset Management Analyst No July 14 5:08pm Advance Directives No February 02, 2023 11:35am Advance Directive Response Recorded Date/ Time Living Will Yes February 02 11:35am Power of Asset Management Analyst Yes February 02 11:35am Living Will Yes November 15, 2023 3:30pm Power of Asset Management Analyst No November 14 3:30pm Living Will No July 14, 2024 5:08pm Power of Asset Management Analyst No July 14 5:08pm Living Will No July 15, 2024 1:25pm Power of Asset Management Analyst No July 15 1:25pm Advance Directives No February 02, 2023 11:35am Advance Directive Response Recorded Date/ Time Living Will Yes November 15, 2023 3:30pm Do you have a Healthcare Power of Asset Management Analyst? No November 15, 2023 3:30pm Living Will No July 14, 2024 5:08pm Do you have a Healthcare Power of Asset Management Analyst? No July 14, 2024 5:08pm Living Will No July 15, 2024 1:25pm Do you have a Healthcare Power of Asset Management Analyst? No July 15, 2024 1:25pm Do you have a Healthcare Power of Asset Management Analyst? No September 16, 2024 3:51pm Advance Directives No February 02, 2023 11:35am Advance Directive Response Recorded Date/ Time Living Will No July 14, 2024 5:08pm Do you have a Healthcare Power of Asset Management Analyst? No July 14, 2024 5:08pm Living Will No July 15, 2024 1:25pm Do you have a Healthcare Power of Asset Management Analyst? No July 15, 2024 1:25pm Do you have a Healthcare Power of Asset Management Analyst? No September 16, 2024 3:51pm Advance Directives No February 02, 2023 11:35am Advance Directive Response Recorded Date/ Time Do you have a Healthcare Power of Asset Management Analyst? No September 16, 2024 3:51pm Do you have a Healthcare Power of Asset Management Analyst? Yes November 13, 2024 4:26pm Name of Medical Power of Asset Management Analyst Aleksandr Lucas November 13, 2024 4:26pm Advance Directives No February 02, 2023 11:35am Advance Directive Response Recorded Date/ Time Do you have a Healthcare Power of Asset Management Analyst? No September 16, 2024 3:51pm Do you have a Healthcare Power of Asset Management Analyst? No November 13, 2024 9:42pm Name of Medical Power of Asset Management Analyst Aleksandr Lucas November 13, 2024 4:26pm Advance Directives No February 02, 2023 11:35am [...] ARM RT ARM PAIN SCREENING general illness [facility] ER FU CHEST PAIN CHEST PAIN [...] ARM RT ARM PAIN SCREENING general illness [facility] ER FU CHEST PAIN CHEST PAIN CHEST PAIN CHEST PAIN [facility] FU 1 Y FU Reason for [...] ARM RT ARM PAIN SCREENING general illness [facility] ER FU CHEST PAIN CHEST PAIN CHEST PAIN CHEST PAIN CHEST PAIN [facility] FU 1 Y FU CERVICAL RADICULOPATHY. [...] ARM RT ARM PAIN SCREENING general illness [facility] ER FU CHEST PAIN CHEST PAIN CHEST PAIN CHEST PAIN CHEST PAIN [facility] FU 1 Y FU CERVICAL RADICULOPATHY. RX HERE 4 M FU SEIZURE Reason for Visit Cough Chest pain Intractable pain Neck pain Cervical radiculopathy Left shoulder pain Neck pain Left upper extremity numbness Essential (primary) hypertension History of coronary artery stent placement Hyperlipidemia Obesity LINA (obstructive sleep apnea) Chief Complaint RT ARM PAIN SCREENING general illness [facility] ER FU CHEST PAIN CHEST PAIN CHEST PAIN CHEST PAIN CHEST PAIN [facility] FU 1 Y FU CERVICAL RADICULOPATHY. RX HERE 4 M FU SEIZURE FALL Reason for Visit Cough Chest pain Intractable pain Neck pain Cervical radiculopathy Left shoulder pain Neck pain Left upper extremity numbness Essential (primary) hypertension History of coronary artery stent placement Hyperlipidemia Obesity LINA (obstructive sleep apnea) Chief Complaint CERVICAL RADICULOPAT HY. RX HERE 4 M FU SEIZURE FALL [facility] ER FU Wants Covid Test LABSPEC Reason for Visit Obesity LINA (obstructive sleep apnea) Seizures Exposure to COVID-19 virus Chief Complaint CERVICAL RADICULOPAT HY. RX HERE 4 M FU SEIZURE FALL [facility] ER FU Wants Covid Test LABSPEC [...] Follow up per Pcp 3 M FU ILNA CABG B12 inject OSTEO LINA STOMACH ISSUES [...] :26am Type 2 diabetes mellitus May 20, 9:26am Fatigue July 05, 2024 10:4 4am [...] 8:51a m Atherosclerotic heart diseas e of [place] coronary artery without angina pectoris September 19, [...] 8:51a m Atherosclerotic heart diseas e of [place] coronary artery without angina pectoris September 19, [...] 8:51a m Atherosclerotic heart diseas e of [place] coronary artery without angina pectoris September 19, [...] 8:51a m Atherosclerotic heart diseas e of [place] coronary artery without angina pectoris September 19, [...] without status epilepticus November 07, 2024 11:01am Chief Complaint Admit Date 3 M FU/Prolia August 10, 2024 10:3 7am CHEST PAIN September 16, 2024 3:07p m Chest soreness 2 years post CABG September 8:51am HOSP FU September 21, 2024 10:36 am 8 m fu September 28, 2024 12:32 pm B12 October 03, 2024 11:04 am sleep apnea October 20, 2024 7:51 pm 6 M FU November 07, 2024 11:01 am INT LAB ORDERS November 11, 2024 2:34 pm LINA November 11, 2024 3:53 pm Chest pain November 13, 2024 8:02 pm CHEST PAIN November 13, 2024 9:08 pm Reason for Visit Admit Date Essential (primary) hypertension August 102024 10:37am Osteoporosis August 10, 2024 10:3 7am Rheumatoid arthritis August 10, 2024 10: 37am Type 2 diabetes mellitus August 10, 2024 10:37am Anemia September 19, 2024 8:51a m Atherosclerotic heart diseas e of [place] coronary artery without angina pectoris September 19, [...] without status epilepticus November 07, 2024 11:01am Fatigue November 07, 2024 11:01 am Chest pain November 13, 2024 9:08 pm Chief Complaint Admit Date 3 M FU/Prolia August 10, 2024 10:3 7am CHEST PAIN September 16, 2024 3:07p m Chest soreness 2 years post CABG September 8:51am HOSP FU September 21, 2024 10:36 am 8 m fu September 28, 2024 12:32 pm B12 October 03, 2024 11:04 am sleep apnea October 20, 2024 7:51 pm 6 M FU November 07, 2024 11:01 am INT LAB ORDERS November 11, 2024 2:34 pm LINA November 11, 2024 3:53 pm CHEST PAIN November 13, 2024 8:02 pm CHEST PAIN November 14, 2024 8:01 am CHEST PAIN November 14, 2024 10:0 8am Reason for Visit Admit Date Essential (primary) hypertension August 102024 10:37am Osteoporosis August 10, 2024 10:3 7am Rheumatoid arthritis August 10, 2024 10: 37am Type 2 diabetes mellitus August 10, 2024 10:37am Anemia September 19, 2024 8:51a m Atherosclerotic heart diseas e of [place] coronary artery without angina pectoris September 19, [...] without status epilepticus November 07, 2024 11:01am Fatigue November 07, 2024 11:01 am Chest pain November 13, 2024 8:02 pm Essential (primary) hypertension November 132024 8:02pm History of coronary artery bypass graft November 13, 2024 8:02pm Hyperlipidemia November 13, 2024 8:02 pm Type 2 diabetes mellitus November 13, 2024 8:02pm Chief Complaint Admit Date 3 M FU/Prolia August 10, 2024 10:3 7am CHEST PAIN September 16, 2024 3:07p m Chest soreness 2 years post CABG September 8:51am HOSP FU September 21, 2024 10:36 am 8 m fu September 28, 2024 12:32 pm B12 October 03, 2024 11:04 am sleep apnea October 20, 2024 7:51 pm 6 M FU November 07, 2024 11:01 am INT LAB ORDERS November 11, 2024 2:34 pm LINA November 11, 2024 3:53 pm CHEST PAIN November 13, 2024 8:02 pm CHEST PAIN November 14, 2024 8:01 am CHEST PAIN November 14, 2024 10:0 8am 3 M FU November 16, 2024 10:5 3am Reason for Visit Admit Date Essential (primary) hypertension August 102024 10:37am Osteoporosis August 10, 2024 10:3 7am Rheumatoid arthritis Angie 9th, 2025 10: 37am Type 2 diabetes mellitus August 10, 2024 10:37am Anemia September 19, 2024 8:51a m Atherosclerotic heart diseas e of [place] coronary artery without angina pectoris September 19, [...] without status epilepticus November 07, 2024 11:01am Fatigue November 07, 2024 11:01 am Essential (primary) hypertension November 132024 8:02pm History of coronary artery bypass graft November 13, 2024 8:02pm Hyperlipidemia November 13, 2024 8:02 pm Type 2 diabetes mellitus November 13, 2024 8:02pm Chest pain November 13, 2024 8:02 pm Reason for Visit Admit Date Essential (primary) hypertension August 102024 10:37am Osteoporosis August 10, 2024 10:3 7am Rheumatoid arthritis August 10, 2024 10: 37am Type 2 diabetes mellitus August 10, 2024 10:37am Anemia September 19, 2024 8:51a m Atherosclerotic heart diseas e of [place] coronary artery without angina pectoris September 19, [...] without status epilepticus November 07, 2024 11:01am Fatigue November 07, 2024 11:01 am Essential (primary) hypertension November 132024 8:02pm History of coronary artery bypass graft November 13, 2024 8:02pm Hyperlipidemia November 13, 2024 8:02 pm Type 2 diabetes mellitus November 13, 2024 8:02pm Chest pain November 13, 2024 8:02 pm ACS (acute coronary syndrome) November 16, 2024 10:53am Chronic diastolic CHF (congestive heart failure) November 16, 2024 10:53am Essential (primary) hypertension November 162024 10:53am Type 2 diabetes mellitus November 16, 2024 10:53am Reason for Referral Specialty Diagnoses / Procedures Referred By Contmacario t Referred To Contact Diagnoses S/P CABG (coronary artery bypass graft) Kassy Tabares, ELECTRIC MOTOR CONTROLS ASSEMBLER - RIGGING SUPERVISOR [address] [address] Referral ID Status Reason Start Date Expiration Date Visits Re quested Visits Authorized [id number] Closed 1 1 Additional Source Comments INFORMATION SOURCE (unrecogn ized section and content) DATE CREATED AUTHOR 10/27/2017 [facility] DATE CREATED AUTHOR AUTHOR'S ORGANIZ ATION 10/27/2017 [facility] DATE CREATED AUTHOR AUTHOR'S ORGANIZ ATION 06/21/2018 [facility] DATE CREATED AUTHOR AUTHOR'S ORGANIZ ATION 01/07/2023 [facility] DATE CREATED AUTHOR AUTHOR'S ORGANIZ ATION 01/18/2025 [facility] Goals (unrecognized section and content) Goals may [...] Care Provider Active Dr. Mikey Garcia , DO Attending Provider, Emergency P rovider [...] Provider, Refer ring Provider Active Mc LÓPEZ, PA Attending Provider Active Team Status: Active [...] Armendariz , Emergency Provider Active Dr. Edwin Kalpan , DO Admit Provider, Attending Provider Active Dr. Bhanu Milian MD Other Provider Active Top Precipitator Operator Relationship Specialty Start Date End Date Mayda Garcia [address] [place] [address] PCP - General Internal Medicine 12/23/22 Top Precipitator Operator Relationship Specialty Start Date End Date Mayda Garcia [address] [place] [address] PCP - General Internal Medicine 12/23/22 Top Precipitator Operator Relationship Specialty Start Date End Date Mayda Garcia [address] [place] [address] PCP - General Internal Medicine 12/23/22 Top Precipitator Operator Relationship Specialty Start Date End Date Mayda Garcia [address] [place] [address] PCP - General Internal Medicine 12/23/22 Top Precipitator Operator Relationship Specialty Start Date End Date Mayda Garcia [address] [place] [address] PCP - General Internal Medicine 12/23/22 Top Precipitator Operator Relationship Specialty Start Date End Date Mayda Garcia [address] [place] [address] PCP - General Internal Medicine 12/23/22 Team Status: Inactive Member Role Status Dates Dr. Mayda Garcia MD Primary Care Provider Active Dr. Robbin Carlos MD Admit Provider, Attending Provid er Active Top Precipitator Operator Relationship Specialty Start Date End Date Mayda Garcia [address] [place] [address] PCP - General Internal Medicine 12/23/22 Team Status: Inactive Member Role Status Dates Dr. Mayda Garcia MD Primary Care Provider Active Dr. Pepe Ruiz MD Attending Provider, Referring Provider Active Team Status: Inactive Member Role Status Dates Dr. Mayda Garcia MD Primary Care Provider, Refer ring Provider Active Carlos Bravo DIRECTOR OF REGULATORY AFFAIRS, DIRECTOR OF REGULATORY AFFAIRS-C Attending Provider Active Team Status: Inactive Member Role Status Dates Dr. Mayda Garcia MD Primary Care Provider Active Carlos Bravo DIRECTOR OF REGULATORY AFFAIRS, DIRECTOR OF REGULATORY AFFAIRS-C Attending Provider, Referring Pro vider Active Team Status: Active Member Role Status Dates Dr. Mayda Garcia MD Primary Care Provider Active Dr. Winstno Johnson MD Attending Provider Active Team Status: Inactive Member Role Status Dates Dr. Mayda Garcia MD Primary Care Provider, Refer ring Provider Active Vanita Venegas DIRECTOR OF REGULATORY AFFAIRS, DIRECTOR OF REGULATORY AFFAIRS-C Attending Provider Active Team Status: Active Member Role Status Dates Dr. Mayda Garcia MD Primary Care Provider Active Dr. Winston Johnson MD Attending Provider, Referring Pro vider Active Team Status: Inactive Member Role Status Dates Dr. Mayda Garcia MD Primary Care Provider Active Vanita Venegas DIRECTOR OF REGULATORY AFFAIRS, DIRECTOR OF REGULATORY AFFAIRS-C Attending Provider, Referrin g Provider Active Team [...] MD Primary Care Provider Active Vanita Venegas DIRECTOR OF REGULATORY AFFAIRS, DIRECTOR OF REGULATORY AFFAIRS-C Attending Provider, Referrin g Provider Active Team [...] 2024 End: April 20, 2024 Vanita Venegas DIRECTOR OF REGULATORY AFFAIRS, DIRECTOR OF REGULATORY AFFAIRS-C Attending Provider Active Start: April 20, 2024 End: April 20, 2024 Vanita Venegas DIRECTOR OF REGULATORY AFFAIRS, DIRECTOR OF REGULATORY AFFAIRS-C Referring Provider Active Start: April 20, 2024 [...] Active Member Role Status Dates Dr. Mayda Garcai MD Primary Care Provider Active Start: April 25, 2024 Vanita Venegas DIRECTOR OF REGULATORY AFFAIRS, DIRECTOR OF REGULATORY AFFAIRS-C Referring Provider Active Start: April 25, 2024 Vanita Venegas DIRECTOR OF REGULATORY AFFAIRS, DIRECTOR OF REGULATORY AFFAIRS-C Other Provider Active Start: April 25, 2024 [...] 2024 End: September 19, 2024 Dr. Mayda Garcai MD Referring Provider Active Start: September 19, [...] 2024 End: September 28, 2024 Vanita Venegas DIRECTOR OF REGULATORY AFFAIRS, DIRECTOR OF REGULATORY AFFAIRS-C Attending Provider Active Start: September 28, 2024 [...] 2024 End: October 20, 2024 Vanita Venegas DIRECTOR OF REGULATORY AFFAIRS, DIRECTOR OF REGULATORY AFFAIRS-C Attending Provider Active Start: October 20, 2024 End: October 20, 2024 Vanita Venegas DIRECTOR OF REGULATORY AFFAIRS, DIRECTOR OF REGULATORY AFFAIRS-C Referring Provider Active Start: October 20, 2024 [...] 2024 End: September 28, 2024 Vanita Venegas DIRECTOR OF REGULATORY AFFAIRS, DIRECTOR OF REGULATORY AFFAIRS-C Attending Provider Active Start: September 28, 2024 [...] 2024 End: October 20, 2024 Vanita Venegas DIRECTOR OF REGULATORY AFFAIRS, DIRECTOR OF REGULATORY AFFAIRS-C Attending Provider Active Start: October 20, 2024 End: October 20, 2024 Vanita Venegas DIRECTOR OF REGULATORY AFFAIRS, DIRECTOR OF REGULATORY AFFAIRS-C Referring Provider Active Start: October 20, 2024 [...] November 07, 2024 End: November 07, 2024 Team Status: Inactive Member Role/Relationship Status [...] 2024 End: September 28, 2024 Vanita Venegas DIRECTOR OF REGULATORY AFFAIRS, DIRECTOR OF REGULATORY AFFAIRS-C Attending Provider Active Start: September 28, 2024 End: September 28, 2024 Team Status: Inactive Member Role/Relationship Status Dates Dr. Mayda Garcia MD Primary Care Provider Active Start: October 03, 2024 End: October 03, 2024 Dr. Pepe Ruiz MD Attending Provider Active Start: October 03, 2024 End: October 03, 2024 Dr. Pepe Ruiz MD Referring Provider Active Start: October 03, 2024 End: October 03, 2024 Team Status: Inactive Member Role/Relationship Status Dates Dr. Mayda Garcia MD Primary Care Provider Active Start: October 20, 2024 End: October 20, 2024 Vanita Venegas DIRECTOR OF REGULATORY AFFAIRS, DIRECTOR OF REGULATORY AFFAIRS-C Attending Provider Active Start: October 20, 2024 End: October 20, 2024 Vanita Venegas DIRECTOR OF REGULATORY AFFAIRS, DIRECTOR OF REGULATORY AFFAIRS-C Referring Provider Active Start: October 20, 2024 [...] November 07, 2024 End: November 07, 2024 Team Status: Active Member Role/Relationship Status Dates Dr. Mayda Garcia MD Primary Care Provider Active Start: November 11, 2024 Dr. Pepe Ruiz MD Attending Provider Active Start: November 11, 2024 Dr. Pepe Ruiz MD Referring Provider Active Start: November 11, 2024 Team Status: Active Member Role/Relationship Status Dates Dr. Mayda Garcia MD Primary Care Provider Active Start: November 11, 2024 Vanita Venegas DIRECTOR OF REGULATORY AFFAIRS, DIRECTOR OF REGULATORY AFFAIRS-C Attending Provider Active Start: November 11, 2024 Vanita Venegas DIRECTOR OF REGULATORY AFFAIRS, DIRECTOR OF REGULATORY AFFAIRS-C Referring Provider Active Start: November 11, 2024 Team Status: Active Member Role/Relationship Status Dates Dr. Mayda Garcia MD Primary Care Provider Active Start: November 13, 2024 Dr. Turner Armendariz DO Emergency Provider Active S tart: November 13, 2024 Dr. Edwin Kaplan DO Attending Provider Active Start: November 13, 2024 Team Status: Active Member Role/Relationship Status Dates Dr. Mayda Garcia MD Primary Care Provider Active Start: November 13, 2024 Dr. Turner Armendariz DO Emergency Provider Active S tart: November 13, 2024 Dr. Edwin Kaplan DO Admit Provider Active Start: November 13, 2024 Dr. Edwin Kaplan DO Attending Provider Active Start: November 13, 2024 Team Status: Inactive Member Role/Relationship Status Dates Dr. Mayda Garcia MD Primary Care Provider Active Start: November 13, 2024 End: November 14, 2024 Dr. Turner Armendariz DO Emergency Provider Active S tart: November 13, 2024 End: November 14, 2024 Dr. Edwin Kaplan , DO Admit Provider Active Start: November 13, 2024 End: November 14, 2024 Dr. Edwin Kaplan , Other Provider Active Start: November 13, 2024 End: November 14, 2024 Dr. Eleonora Hernandez MD Other Provider Active Start : November 13, 2024 End: November 14, 2024 Dr. Maurilio Bradford MD Attending Provider Active Start: November 13, 2024 End: November 14, 2024 Team Status: Active Member Role/Relationship Status Dates Dr. Mayda Garcia MD Primary Care Provider Active Start: November 14, 2024 Dr. Turner Armendariz DO Emergency Provider Active S tart: November 14, 2024 Dr. Edwin Kaplan DO Admit Provider Active Start: November 14, 2024 Dr. Edwin Kaplan DO Other Provider Active Start: November 14, 2024 Dr. Eleonora Hernandez MD Other Provider Active Start : November 14, 2024 Dr. Maurilio Bradford MD Other Provider Active Star t: November 14, 2024 Dr. Aleksandr Salinas MD Attending Provider Active Start: November 14, 2024 Team Status: Active Member Role/Relationship Status Dates Dr. Mayda Garcia MD Primary Care Provider Active Start: November 14, 2024 Dr. Turner Armendariz DO Emergency Provider Active S tart: November 14, 2024 Dr. Edwin Kaplan DO Admit Provider Active Start: November 14, 2024 Dr. Edwin Kaplan DO Other Provider Active Start: November 14, 2024 Dr. Eleonora Hernandez MD Other Provider Active Start : November 14, 2024 Dr. Maurilio Bradford MD Attending Provider Active Start: November 14, 2024 Dr. Maurilio Bradford MD Other Provider Active Star t: November 14, 2024 Team Status: Inactive Member Role/Relationship Status Dates Dr. Mayda Garcia MD Primary Care Provider Active Start: November 16, 2024 End: November 16, 2024 Dr. Mayda Garcia MD Attending Provider Active Start: November 16, 2024 End: November 16, 2024 Dr. Mayda Garcia MD Referring Provider Active Start: November 16, 2024 End: November 16, 2024 Team Status: Inactive Member Role/Relationship Status Dates Dr. Mayda Garcia MD Primary Care Provider Active Start: November 11, 2024 End: November 11, 2024 Dr. Pepe Ruiz MD Attending Provider Active Start: November 11, 2024 End: November 11, 2024 Dr. Pepe Ruiz MD Referring Provider Active Start: November 11, 2024 End: November 11, 2024 Team Status: Inactive Member Role/Relationship Status Dates Dr. 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 [I25.10] Procedures WA CABG W/ARTERIAL GRAFT THREE ARTERIAL GRAFTS WA ECHO TRANSESOPHAG R-T 2D W/PRB IMG ACQUISJ I&R CABG AND SIS Echocardiography transesophageal real-time RoseAzam fenton MD [address] [place] [address], [id number] [place] [address] [facility] [address] [facility] [place] [address] Referral ID Status Reason Start Date Expiration Date Visits Re quested Visits Authorized [id number] 1 1 Reason Comments Post-op Scheduled Active and Recently Administ ered Medications (unrecognized section and content) Medication Order 01/09/2023 01/10/2023 01/11/2023 acetaminophen (Tylenol) tablet 1,000 mg 1,000 mg, Oral, Every 8 hours, First dose on Maria Alejandra 01/01/23 at 1130, Recovery & On Unit 0330 (Not Given - Provider: Maurilio Busby RN - Reason: Patient/family refused)1151 (Not Given - Provider: Herminia Tmo RN - Reason: Patient/family refused)2008 (Given - Provider: Nilsa Hills RN) 0430 (Given - Provider: Nilsa Hills RN)1130 (Not Given - Provider: Anna Escalera RN - Reason: Patient/family refused)2052 (Given - Provider: Nilsa Hills RN) 599 (Given - Provider: Nilsa Hills RN)1129 (Canceled Entry - Provider: Automatic Discharge Provider - Comment: Automatically canceled at discontinue of medication order) aspirin chewable tablet 81 mg 81 mg, Oral, Daily, First dose on Thu01/02/23 at 0900 1008 (Given - Provider: Herminia Tom RN) 0809 (Given - Provider: Anna Escalera RN) 0808 (Given - Provider: Anna Escalera, KARINA) atorvastatin (Lipitor) tablet 80 mg 80 mg, Oral, Daily, First dose on Thu01/02/23 at 0900 1007 (Given - Provider: Herminia Tom RN) 0810 (Given - Provider: nAna Escalera RN) 0810 (Given - Provider: Anna Escalera, KARINA) clopidogrel (Plavix) tablet 75 mg 75 mg, Oral, Daily, First dose on Thu01/09/23 at 0900 1007 (Given - Provider: Herminia Tom RN) 0810 (Given - Provider: Anna Escalera RN) 0809 (Given - Provider: Anna Escalera RN) divalproex [...] 0814 (Given - Provider: Anna Escalera RN) 810 (Given - Provider: Anna Escalera, KARINA) heparin injection 5,000 Units 5,000 Units, SubCUTAneous, 2 times daily, First dose on Thu01/04/23 at 0900 1007 (Given - Provider: Herminia Tom RN)2008 (Given - Provider: Nilsa Hills RN) 816 (Given - Provider: Anna Escalera RN)2052 (Given - Provider: Nilsa Hills RN) 801 (Given - Provider: Anna Escalera, RN) Lidocaine 4 % patch 1 patch 1 patch, Topical, Administer over 12 Hours, Daily, First dose on Maria Alejandra 01/01/23 at 1130, Recovery & On Unit, Apply patch to MSI- cut in half and place on either side on incision. Patch may remain in place for up to 12 hours in any 24 hour period. 1009 (Not Given - Provider: Herminia Tom RN - Reason: Patient/family refused) 08 (Medication Applied - Provider: Anna Escalera RN)2015 (Medication Removed - Provider: Nilsa Hills RN) [...] Hills RN) 809 (Given - Provider: Anna Escalera RN)2052 (Given - Provider: Nilsa Hilsl RN) 807 (Given - Provider: Anna Escalera [...] BE BASED ON THE PRIMARY CLINICAL RECORDS. [employer]. provides no warranty or guarantee of the accuracy or completeness of information in this document.
== END | disposition home or self-care (01) ==
PROVIDERS: PCP Internal Medicine; Referring Provider Nurse Practitioner Acute Care; Visit Provider Student in an Organized Health Care Education/Training Program
DX: E78.00 Pure hypercholesterolemia, unspecified (principal); I50.32 Chronic diastolic (congestive) heart failure; D64.9 Anemia, unspecified; K59.00 Constipation, unspecified; R10.13 Epigastric pain; R53.83 Other fatigue
CPT/HCPCS: 36415; 74018; 80048; 80061; 80076; 82607; 85025

== ENCOUNTER 2025-03-31 15:13 | Emergency (ER) | payer MEDICARE, SELFPAY ==
[2023-07-29 08:29] VITALS: BMI 30.2
[2025-03-31 15:15] VITALS: BP 157/79; PULSE 92; RESP 18; TEMP 36.6; O2SAT 100; BMI 30.4
--- NOTE | 2025-03-31 15:35 | EKG12_ITS ---
Test Reason : Blood Pressure : */* mmHG Vent. Rate : 79 BPM Atrial Rate : 79 BPM P-R Int : 146 ms QRS Dur : 72 ms QT Int : 394 ms P-R-T Axes : 75 35 77 degrees QTcB Int : 451 ms Normal sinus rhythm Possible Left atrial enlargement Borderline ECG Confirmed by Aleksandr Salinas ([id number]), news videotape editor ADIA ARDON ([id number]) on 04/03/2025 8:37:00 AM Referred By: Confirmed By: Aleksandr Salinas
--- NOTE | 2025-03-31 15:35 | RAD_ITS ---
PROCEDURE: CHEST 1 VIEW (PORTABLE) 03/31/2025 REASON FOR EXAM: CHEST PAIN TECHNIQUE: Frontal view of the chest. COMPARISON: 11/13/2024 FINDINGS: Hardware: Sternotomy wires are present. Heart: The heart size is normal. Lungs: The lungs are clear. No pneumothorax or pleural effusion. Bones: The bones are unremarkable. RAD/Chest 1 View (Portable) IMPRESSION: No Acute Findings. Reading Location[facility]
--- NOTE | 2025-03-31 15:39 | EX.ED.DYSGE1 ---
HPI History of Present Illness Chief Complaint: General Illness Narrative Narrative: This is a 74-year-old female with a history of CAD, LINA, type 2 diabetes, CHF, rheumatoid arthritis, hyperlipidemia, and GERD who presents to the emergency department with cold symptoms. Patient states that symptoms have been going on since Thursday, 3 days ago. Patient woke up with subjective fever and diaphoresis. Since then she has noticed nasal congestion, sore throat, and a nonproductive cough. Patient has some mild chest pain and discomfort and shortness of breath as well, worse with exertion. Patient continues to have subjective fevers and chills at home with a headache, myalgias, and generalized weakness. No nausea or vomiting. No diarrhea or constipation. No urinary symptoms. She does have multiple sick contacts including a granddaughter at home who is ill and coworkers are sick at work. Patient was concerned because she has a history of CHF and she wanted to make sure not in any type of CHF exacerbation from this. Patient has tried taking some Mucinex at home without much relief. She did not take any NSAIDs or acetaminophen prior to coming to the ED. [facility] Medical History Sinusitis Allergic rhinitis Pain of right great toe Keloid scar of skin Vertigo Chest pain Dyspnea on exertion Wears partial dentures Injury of head and neck Gastric reflux Encounter for transesophageal echo performed as part of open chest procedure History of echocardiogram History of stress test Tremor Retained suture Chest wall tenderness Fatigue Flu vaccine need Lower extremity edema History of coronary artery disease History of hypertension Left ankle pain Right hip pain Right groin pain Memory changes Left shoulder pain Cervical radiculopathy Cough Health care maintenance Right shoulder pain Therapeutic drug monitoring Osteoporosis Compression fracture of lumbar spine, non-traumatic Dysuria Dysuria Urinary frequency Acute back pain Personal history of colonic polyps GERD (gastroesophageal reflux disease) Hyperglycemia due to type 2 diabetes mellitus Wears glasses Diabetes Arthritis Anemia Non-smoker CPAP (continuous positive airway pressure) dependence Sleep apnea Shortness of breath on exertion Cardiology follow-up encounter Abdominal pain Osteoarthritis Congestive heart failure (CHF) Routine health maintenance Colon cancer screening Foreign body in stomach Seizure disorder Type 2 diabetes mellitus Diabetes mellitus type 2 in nonobese Obesity Urinary frequency Conversion disorder Non-toxic goiter Essential (primary) hypertension RIGHT FOOT HEEL SPUR Atherosclerotic heart disease of [place] coronary artery without angina pectoris Rheumatoid arthritis Diabetes type 2, controlled Hives Seasonal allergies Hyperlipidemia Chronic diastolic CHF (congestive heart failure) Home Medications Medication Instructions Recorded Last Taken Type multivitamin 1 tab PO DAILY vitamin 05/20/19 11/12/24 History blood-glucose meter (True Metrix #1 ea 02/03/20 Unknown Rx Air Glucose Meter kit) calcium citrate 200 mg PO DAILY supplement 05/21/20 11/12/24 History disability placard #1 ea 06/27/20 Unknown Rx aspirin 81 mg tablet,delayed 81 mg PO DAILY heart 08/13/20 11/13/24 History release (Adult Low Dose Aspirin) blood sugar diagnostic (True #100 ea 06/17/23 Unknown Rx Metrix Glucose Test Strip) lancets 33 gauge #100 ea 06/17/23 Unknown Rx Handicap Placard #1 ea 01/07/24 Unknown Rx gabapentin 300 mg capsule 300 mg PO QHS #30 caps 02/14/24 11/12/24 Rx metoprolol tartrate 25 mg tablet 25 mg PO QDAY heart #90 tabs 04/19/24 11/12/24 Rx hydroxychloroquine 200 mg tablet See Rx Instructions .Route 09/21/24 11/12/24 Rx .COMPLEX immunosuppressant #180 tabs sitagliptin phosphate 100 mg See Rx Instructions .Route 09/21/24 11/12/24 Rx tablet (Januvia) .COMPLEX diabetes #90 tabs divalproex 500 mg tablet,delayed 500 mg .Route .COMPLEX seizures 11/07/24 11/12/24 Rx release (Depakote) #90 tabs pantoprazole 40 mg tablet,delayed 40 mg PO QDAY #90 tabs 01/19/25 Unknown Rx release atorvastatin 80 mg tablet 80 mg PO QHS cholesterol #90 tabs 01/23/25 Unknown Rx evolocumab 140 mg/mL subcutaneous 140 mg subcut Q2W #2 mL 01/23/25 Unknown Rx pen injector (Repatha SureClick) furosemide 40 mg tablet (Lasix) 20 mg PO DAILY 01/23/25 Unknown History denosumab 60 mg/mL subcutaneous 60 mg subcut [id number] bone health 01/26/25 Unknown Rx syringe (Prolia) #1 mL CPAP - Continuous Positive Airway 02/13/25 Unknown History Pressure([facility] INFORMATIONAL USE ONLY) linaclotide 72 mcg capsule 72 mcg PO QAM #30 caps 02/27/25 Unknown Rx (Linzess) fluticasone furoate 27.5 2 spray intranasal QDAY #18.2 mL 03/17/25 Unknown Rx mcg/actuation nasal spray,suspension (Flonase Sensimist) levocetirizine 5 mg tablet (Xyzal) 5 mg PO QPM PRN allergy symptoms 03/17/25 Unknown Rx #90 tabs Allergy/AdvReac Type Severity Reaction Status Date / Time prednisone AdvReac Severe Hives Verified 03/31/25 15:18 Family History Grandmother Alcoholism Cancer Arthritis Mother Alcoholism Diabetes blood clots Hypertension Grandfather Heart disease Sister Thyroid disorder Other Breast cancer Cervical cancer Colon cancer Surgical History History of coronary artery bypass graft History of cardiac catheterization History of left heart catheterization (09/20/18) History of coronary artery stent placement (03/22/18) History of carpal tunnel surgery History of section H/O: hysterectomy Social History household members: none housing: apartment Smoking Status: Never smoker second hand exposure: No alcohol intake: current alcohol intake frequency: holidays/special occasions only substance use type: does not use what type of physical activity do you participate in: none ROS ROS ED Constitutional Constitutional ED: Reports chills, fever(s) and subjective Eyes Eyes: Denies blurry vision ENT ENT ED: Reports rhinorrhea and sore throat; Denies ear pain Cardiovascular Cardiovascular: Reports chest pain; Denies palpitations Respiratory/Chest Respiratory/Chest: Reports cough and dyspnea Gastrointestinal Gastrointestinal: Denies abdominal pain, constipation, diarrhea, nausea or vomiting Genitourinary Genitourinary ED: Denies dysuria Musculoskeletal Musculoskeletal: Reports myalgias Integumentary Denies rash Neurologic Neurologic: Reports headache(s) EXAM Physical Exam Const Vital Signs: 03/31/25 15:15 03/31/25 15:35 03/31/25 15:36 Temperature 98 F Temperature Source Temporal Pulse Rate 92 Respiratory Rate 18 Respiratory Pattern Normal Blood Pressure 157/79 H Blood Pressure Mean 105 Pulse Ox 100 Oxygen Delivery Method Room Air Room Air 03/31/25 17:21 03/31/25 19:00 03/31/25 19:13 Temperature 98 F Temperature Source Pulse Rate 80 76 76 Respiratory Rate 19 H 14 14 Respiratory Pattern Blood Pressure 144/73 H 150/74 H 150/74 H Blood Pressure Mean 96 99 99 Pulse Ox 100 100 100 Oxygen Delivery Method Room Air Positive well nourished, well developed, oriented x3 and healthy appearing General Appearance ED: active, cooperative and well developed Orientation / Consciousness: awake and oriented to person Exam Limitations: no limitations Nutritional Appearance: Negative for overweight HEENT Reports normocephalic, head/scalp atraumatic, TM's clear, moist mucous membranes and nasal mucous membranes and turbinates normal HEENT Narrative: Mild erythema of the posterior oropharynx. 1+ swelling of the tonsils. Tonsillar stone in the right tonsil. No exudate. Uvula midline and not swollen. normocephalic, normal to inspection and atraumatic Face and Sinus: normal facial exam Nose: external nose normal and nares normal External Ear: external ears normal Tympanic Membrane ED: Yes TM's clear Mouth ED: Yes oral and palatal mucosa normal, Yes lips normal and Yes tongue normal Mouth: oral and palatal mucosa normal, lips normal and tongue normal Eyes PERRL, EOMs intact bilaterally and conjunctivae normal General Eye ED: Yes normal appearance of both eyes Visual Acuity: acuity normal Eyelid: eyelids normal Conjunctiva: conjunctiva normal Sclera: sclera normal Cornea: cornea normal Pupil: PERRL and accommodation reflex normal EOM: EOM abnormal Neck full ROM Lymph Lymphatic: Negative for no lymphadenopathy noted Lymphatic Narrative: Anterior cervical lymphadenopathy and tenderness to palpation Chest Wall inspection of chest normal Chest: abnormal inspection of the chest Resp normal respiratory effort and normal air movement Effort and Inspection: able to speak in complete sentences and symmetric chest movement Auscultation: clear to auscultation bilaterally Cardio regular rate and regular rhythm Rate: regular rate Peripheral Pulses: pulses 2+ throughout GI Rectal Exam: deferred Back/Spine normal ROM and normal to inspection Cervical Spine: cervical ROM normal Extremity normal to inspection, full ROM and normal capillary refill Neuro oriented x3, CN's II-XII intact bilaterally, moves all extremities and no focal motor deficits Sensorium / Orientation: awake and alert Motor Exam: strength 5/5 throughout Psych mental status grossly normal Appearance: grossly normal and appropriate Speech: normal speech Skin no rashes or lesions noted MDM MDM MDM Narrative Medical decision making narrative: This is a 74-year-old female who presents with viral or URI symptoms. However she has a significant cardiac history and was complaining of some chest pain and shortness of breath. Her EKG showed no ischemic changes and her troponin levels were not elevated. Furthermore she does not have any pleural effusions, which she is she was concerned about on chest x-ray. Additionally no signs of pneumonia. Patient was negative for COVID, flu and RSV. Patient was given Tylenol in the emergency department. I suspect a viral URI at this point. She can continue taking OTC NSAIDs and acetaminophen at home and decongestions as needed. Return to work instructions provided as requested. All questions answered. Patient discharged home Lab Data Attestation: I reviewed the patient's lab results. Labs: Laboratory Results - last 24 hr 03/31/25 03/31/25 15:56 18:09 WBC 4.1 L RBC 3.46 L Hgb 11.1 L Hct 32.8 L MCV 94.8 MCH 32.1 H MCHC 33.8 RDW Std Deviation 47.9 H RDW Coeff of [place] 13.8 Plt Count 182 MPV 11.0 Immature Gran % (Auto) 0.200 Neut % (Auto) 55.6 Lymph % (Auto) 35.0 Gates % (Auto) 6.8 Eos % (Auto) 2.2 Baso % (Auto) 0.2 Absolute Neuts (auto) 2.3 Absolute Lymphs (auto) 1.44 Nucleated RBC % 0 Sodium 142 Potassium 4.3 Chloride 109 H Carbon Dioxide 22.9 Anion Gap 11 BUN 20 H Creatinine 1.10 Estim Creat Clear Calc 44.02 L Est GFR (MDRD) Non-Af 53 L BUN/Creatinine Ratio 18.1 Glucose 79 Calcium 8.3 Troponin T High Sens 8 D Troponin T Hi Sens 2 Hr 8 Radiography Diagnostic Testing: Clinical Impression(s) from Imaging Studies Chest X-Ray 03/31/25 15:35 IMPRESSION: No Acute Findings. Reading Location: [facility] I personally reviewed the patient's chest x-ray which shows no consolidation to suggest pneumonia and no pleural effusion to suggest CHF exacerbation. EKG Normal sinus rhythm rate of 79. No ST elevation or depression. No ischemic changes: Attestation: I personally reviewed and interpreted this EKG as follows: Discharge Plan Triage Chief Complaint: General Illness ED Provider: Yvrose Michaels Dx/Rx/DC Orders Clinical Impression: Acute upper respiratory infection Instructions: ED URI, Viral, No Abx (Adult) Prescriptions: No Action multivitamin Tablet 1 tab PO DAILY calcium citrate 200 mg (950 mg) tablet 200 mg PO DAILY aspirin [Adult Low Dose Aspirin] 81 mg tablet,delayed release (DR/EC) 81 mg PO DAILY metoprolol tartrate 25 mg tablet 25 mg PO QDAY Qty: 90 3RF (DME) lancets 33 gauge misc See Rx Instructions .Route Qty: 100 2RF Rx Instructions: As directed (DME) True Metrix Glucose Test Strip Strip See Rx Instructions .ROUTE .MEDSUPPLY Qty: 100 3RF Rx Instructions: check twice a day and as needed divalproex [Depakote] 500 mg tablet,delayed release (DR/EC) 500 mg .ROUTE .COMPLEX Qty: 90 10RF Rx Instructions: Take 1 tablet orally qAM and 2 tablets qPM hydroxychloroquine 200 mg tablet See Rx Instructions .ROUTE .COMPLEX Qty: 180 1RF Dose Instruction: TAKE 1 TABLET BY MOUTH TWICE DAILY WITH MEALS Rx Instructions: TAKE 1 TABLET BY MOUTH TWICE DAILY WITH MEALS Januvia 100 mg tablet See Rx Instructions .ROUTE .COMPLEX Qty: 90 1RF Dose Instruction: TAKE 1 TABLET BY MOUTH DAILY Rx Instructions: TAKE 1 TABLET BY MOUTH DAILY Linzess 72 mcg capsule 72 mcg PO QAM Qty: 30 3RF pantoprazole 40 mg tablet,delayed release (DR/EC) 40 mg PO QDAY Qty: 90 1RF furosemide [Lasix] 40 mg tablet 20 mg PO DAILY atorvastatin 80 mg tablet 80 mg PO QHS Qty: 90 3RF Repatha SureClick 140 mg/mL pen injector 140 mg subcut Q2W Qty: 2 6RF Flonase Sensimist 27.5 mcg/actuation spray,suspension 2 spray intranasal QDAY Qty: 18.2 3RF Rx Instructions: into each nostril levocetirizine [Xyzal] 5 mg tablet 5 mg PO QPM PRN (Reason: allergy symptoms) Qty: 90 1RF gabapentin 300 mg capsule 300 mg PO QHS Qty: 30 0RF (DME) CPAP - Continuous Positive Airway Pressure([facility] INFORMATIONAL USE ONLY) See Rx Instructions .Route .MEDSUPPLY Rx Instructions: CPAP 6 DME- DASCO MASK- SW RESMED [employer] N30i NASAL MASK (DME) blood-glucose meter [True Metrix Air Glucose Meter] Kit See Rx Instructions .ROUTE .MEDSUPPLY Qty: 1 0RF Rx Instructions: As directed (DME) disability placard See Rx Instructions .ROUTE .MEDSUPPLY Qty: 1 0RF Rx Instructions: As directed, Length of time: 5 years (DME) Handicap Placard See Rx Instructions .ROUTE .MEDSUPPLY Qty: 1 0RF Rx Instructions: As directed, length of time 3 years Prolia 60 mg/mL syringe 60 mg subcut [id number] Qty: 1 2RF Stand Alone Forms: ED Work / School Excuse Primary Care Provider: Kannan Garcia Referrals: Kannan Garcia MD [Primary Care Provider, Internal Medicine] Print Language: Montserratian Disposition Disposition: Home, Self Care Discharge Date/Time: 03/31/25 19:16
--- OUTSIDE RECORDS SUMMARY | 2025-03-31 16:13 | XMS RPT_ITS | CCD ---
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 fatigue (1 source) Chronic fatigue, unspecified; Translations: [Chronic fatigue, unspecified] Onset: 5 Chronic Malaise and fatigue (20 sources) Asthenia; Translations: [Other malaise] Onset: 5 01-11-2023 Episodic Miscellaneous mental health disorders (2 sources) Dissociative disorder; Translations: [Dissociative and conversion disorder, unspecified] Onset: 3 01-01-2023 Chronic Miscellaneous mental health disorders (20 sources) Feeling unhappy; Translations: [Other symptoms and signs involving emotional state] 12-02-2023 Episodic Nausea and vomiting (11 sources) Nausea; Translations: [Nausea] Onset: 5 01-19-2025 Episodic Nutritional deficiencies (20 sources) Vitamin D deficiency; Translations: [Vitamin D deficiency, unspecified] Onset: 9 09-19-2018 Chronic Osteoarthritis (20 sources) Osteoarthritis of right knee joint; Translations: [Unilateral primary osteoarthritis, right knee] Onset: 9 01-13-2022 Chronic Osteoporosis (20 sources) Osteoporosis; Translations: [Age-related osteoporosis without current pathological fracture] Onset: 2 Chronic Other aftercare (20 sources) Patient encounter status; Translations: [Encounter for therapeutic drug level monitoring] 01-13-2022 Episodic Other aftercare (2 sources) residential (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 of insulin; Translations: [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 (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 of insulin (HCC)] Onset: 3 Episodic Other and ill-defined cerebrovascular disease (20 sources) Cerebrovascular disease; Translations: [Cerebrovascular disease, unspecified] Onset: 3 07-23-2020 Chronic Other and ill-defined cerebrovascular disease (7 sources) Cerebrovascular disease, unspecified; Translations: [Unspecified cerebrovascular disease] Chronic Other and unspecified benign neoplasm (20 sources) History of polyp of colon; Translations: [Personal history of colonic polyps] 01-13-2022 Episodic Other bone disease and musculoskeletal deformities (1 source) Juvenile osteochondrosis of tarsus, right ankle; Translations: [Juvenile osteochondrosis of tarsus, right ankle] Onset: 8 Chronic Other bone disease and musculoskeletal deformities (2 sources) Posterior calcaneal exostosis; Translations: [Juvenile osteochondrosis of tarsus, right ankle] Onset: 8 01-01-2023 Chronic Other circulatory disease (20 sources) [...] Muscle pain; Translations: [Myalgia, unspecified site] Onset: 3 11-02-2021 Episodic Other connective tissue disease (20 sources) Olecranon bursitis; Translations: [Olecranon bursitis, unspecified elbow] Onset: 3 12-06-2021 Episodic Other connective tissue disease (20 sources) Calcific tendinitis; Translations: [Calcific tendinitis, unspecified site] Onset: 3 12-06-2021 Episodic Other connective tissue disease (20 sources) Pain in right arm; Translations: [Pain in right arm] 12-06-2021 Episodic Other connective tissue disease (20 sources) Pain of left upper arm; Translations: [Pain in left upper arm] Onset: 3 01-14-2022 Episodic Other connective tissue disease (2 sources) Pain in left upper arm; Translations: [Pain in limb] 06-30-2022 Episodic Other connective tissue disease (20 sources) Tendinitis of right rotator cuff; Translations: [Other shoulder lesions, right shoulder] 12-02-2023 Episodic Other connective tissue disease (20 sources) Tendinitis; Translations: [Enthesopathy, unspecified] 11-18-2023 Episodic Other connective tissue disease (1 source) Pain in right toe(s); Translations: [Pain in right toe(s)] Onset: 5 Episodic Other fractures (20 sources) Compression fracture of lumbar spine; Translations: [Collapsed vertebra, not elsewhere classified, lumbar region, initial encounter for fracture] Onset: 3 01-13-2022 Episodic Other gastrointestinal disorders (15 sources) Constipation; Translations: [Constipation, unspecified] 01-19-2025 Episodic Other gastrointestinal disorders (1 source) Constipation, unspecified; Translations: [Constipation, unspecified] Onset: 5 Episodic Other lower respiratory disease (20 sources) Cough; Translations: [Cough] Onset: 3 Episodic Other lower respiratory disease (20 sources) Dyspnea on exertion; Translations: [Other forms of dyspnea] 02-18-2023 Episodic Other lower respiratory disease (10 sources) Other forms of dyspnea; Translations: [Other respiratory abnormalities] 02-18-2023 Episodic Other lower respiratory disease (20 sources) Hypoxia; Translations: [Hypoxemia] 12-07-2023 Episodic Other nervous system disorders (20 sources) Neuropathy; Translations: [Polyneuropathy, unspecified] 02-22-2024 Chronic Other nervous system disorders (20 sources) Numbness of upper limb; Translations: [Anesthesia of skin] Onset: 3 01-14-2022 Episodic Other nervous system disorders (4 sources) Anesthesia of skin; Translations: [Disturbance of skin sensation] Episodic Other nervous system disorders (20 sources) Tremor; Translations: [Tremor, unspecified] 09-16-2023 Episodic [...] (20 sources) Obesity; Translations: [Obesity, unspecified] Onset: 2 03-10-2022 Chronic Other nutritional; endocrine; and metabolic disorders (14 sources) Obesity, unspecified; Translations: [Obesity, unspecified] Chronic Other skin disorders (20 sources) Keloid scar; Translations: [Hypertrophic scar] Episodic Other upper respiratory disease (2 sources) Chronic rhinitis; Translations: [Chronic rhinitis] Onset: 0 01-01-2023 Chronic Other upper respiratory infections (20 sources) Acute upper respiratory infection; Translations: [Acute upper respiratory infection, unspecified] 11-02-2021 Episodic Pneumonia (except that caused by tuberculosis or sexually transmitted disease) (20 sources) Pneumonia; Translations: [Pneumonia, unspecified organism] Onset: 3 06-06-2022 Episodic Residual codes; unclassified (20 sources) Obstructive sleep apnea syndrome; Translations: [Obstructive sleep apnea (adult) (pediatric)] Onset: 2 07-23-2020 Chronic Residual codes; unclassified (20 sources) Obstructive sleep apnea (adult) (pediatric); Translations: [Obstructive sleep apnea (adult)(pediatric)] Onset: Chronic Residual codes; unclassified (20 sources) Pain; Translations: [Pain, unspecified] Onset: 3 01-02-2022 Episodic Residual codes; unclassified (5 sources) Pain, unspecified; Translations: [Generalized pain] Episodic Residual codes; unclassified (20 sources) Amnesia; Translations: [Other amnesia] Onset: 3 10-03-2022 Episodic Residual codes; unclassified (20 sources) [...] source) Pain, unspecified; Translations: [Pain, unspecified] Onset: 8 Rheumatoid arthritis and related disease (20 sources) Rheumatoid arthritis; Translations: [Rheumatoid arthritis, unspecified] Onset: 5 01-11-2023 Chronic Spondylosis; intervertebral disc disorders; other back problems (4 sources) Disorder of joint of spine; Translations: [Other spondylosis with radiculopathy, lumbar region] Onset: 7 01-01-2023 Chronic Spondylosis; intervertebral disc disorders; other back problems (20 sources) Backache; Translations: [Dorsalgia, unspecified] Onset: 2 Episodic Sprains and strains (20 sources) Strain of back muscle; Translations: [Strain of muscle, fascia and tendon of lower back, initial encounter] Onset: 3 04-06-2022 Episodic Superficial injury; contusion (20 sources) Contusion of sacral region; Translations: [Contusion of lower back and pelvis, initial encounter] Onset: 3 04-06-2022 Episodic Thyroid disorders (2 sources) Thyroid nodule; Translations: [Nontoxic single thyroid nodule] Onset: 2 01-01-2023 Chronic Unclassified (1 source) Unknown / UNK(Unknown) Onset: 6 Unclassified (1 source) Left knee painful Onset: 8 Unclassified (20 sources) Body mass index 30+ - obesity; Translations: [Body mass index (BMI) greater than 35] 08-02-2020 Unclassified (2 sources) New Patient; Translations: [New Patient] Onset: 3 Unclassified (3 sources) Left ankle pain Viral infection (20 sources) Acute viral disease; Translations: [Viral infection, unspecified] 12-25-2021 Episodic Past or Other Problems Problem Classification Problem Date Documented Da te Episodic/Chronic Coronary atherosclerosis and other heart disease (20 sources) Presence of coronary angioplasty implant and graft; Translations: [Percutaneous transluminal coronary angioplasty status] Onset: 03-22-2018 Episodic Nonspecific chest pain (20 sources) Chest pain, unspecified; Translations: [Chest pain] Onset: 02-09-2017 Episodic Other bone disease and [...] Fibromyalgia; Translations: [Fibromyalgia] Onset: 07-05-2024 Episodic Other injuries and conditions due to external causes (1 source) Exhaustion due to excessive exertion, initial encounter; Translations: [Exhaustion due to excessive exertion, initial encounter] Onset: 11-08-2024 Episodic Other lower respiratory disease (2 sources) Hypoxemia; Translations: [Hypoxemia] Onset: 06-03-2024 Episodic Other non-traumatic joint disorders (20 sources) Shoulder pain; Translations: [Pain in right shoulder] Onset: 01-10-2022 01-10-2022 Episodic Other non-traumatic joint disorders (7 sources) Pain in left ankle and joints of left foot; Translations: [Pain in joint, ankle and foot] Onset: 05-20-2024 12-11-2022 Episodic Other screening for suspected conditions (not mental disorders or infectious disease) (20 sources) Encounter for screening mammogram for malignant neoplasm of breast; Translations: [Patient encounter status] Onset: 07-20-2017 01-13-2022 Episodic Results Test Name Value Interpretation Reference Range Facility Office Visit Reporton 2024 Office Visit Report Normal [facility] Gastroenterology Visit Repor ton 01-26-2025 Gastroenterology Visit Report Normal [facility] Cardiology Visit Reporton Cardiology Visit Report Normal [facility] Abdomen Single Viewon 2024 Abdomen Single View Normal [facility] Absolute lymphocyte countOrd ered By: Shruthi Costa on 01-19-2025 Lymphocytes Auto (Unsp spec) [#/Vol] 1.40 10*3/uL 0.83-4.51 [facility] Anion gap in Serum or Plasma Ordered By: Mayda Garcia on 01-19-2025 Anion gap [Moles/Vol] 14 mmol/L 5- [facility] Automated lymphocyte count a s percentage of total leukocytesOrdered By: Shruthi Costa on 01-19-2025 Lymphocytes/100 WBC Auto (Unsp spec) 32.6 % - [facility] BUN/creatinine ratioOrdered By: Mayda Garcia on 01-19-2025 Urea nitrogen/Creatinine [Mass ratio] 21.7 mg/mg High - [facility] Basic Metabolic Profile (BMP )on 01-19-2025 BUN/CRE 21.7 RATIO High 02-20 [facility] Comment on above: Performed By: #### L 500.2500 ####[facility] [address] [place], [address] Calcium [Mass/Vol] 9.3 mg/dL Normal 7.6-11.0 [facility] Comment on above: Performed By: #### L 500.2500 ####[facility] [address] [place], [address] Chloride [Moles/Vol] 103 mmol/L Normal 98-108 [facility] Comment on above: Performed By: #### L 500.2500 ####[facility] [address] [place], [address] CO2 [Moles/Vol] 22.9 mmol/L Normal 21.0-32.0 [facility] Comment on above: Performed By: #### L 500.2500 ####[facility] [address] [place], [address] Creatinine [Mass/Vol] 1.32 mg/dL High 0.70-1.20 [facility] Comment on above: Performed By: #### L 500.2500 ####[facility] [address] [place], [address] GAP 14 Normal 5-15 [facility] Comment on above: Performed By: #### L 500.2500 ####[facility] [address] [place], [address] GFR/1.73 sq M.predicted among non-blacks MDRD (S/P/Bld) [Vol rate/Area] 43 mL/min/{1.73_m2} Low >60 [facility] Comment on above: Result Comment: mL/m in/1.73m2 CKD-EPI Creatinine Equation (2020) Performed By: #### L 500.2500 ####[facility] [address] [place], [address] Glucose [Mass/Vol] 90 mg/dL Normal 70-99 [facility] Comment on above: Performed By: #### L 500.2500 ####[facility] [address] [place], [address] Potassium [Moles/Vol] 4.3 mmol/L Normal 3.3-5.1 [facility] Comment on above: Performed By: #### L 500.2500 ####[facility] [address] [place], [address] Sodium [Moles/Vol] 139 mmol/L Normal 133-145 [facility] Comment on above: Performed By: #### L 500.2500 ####[facility] [address] [place], [address] Urea nitrogen [Mass/Vol] 29 mg/dL High 4-19 [facility] Comment on above: Performed By: #### L 500.2500 ####[facility] [address] [place], [address] Basophil percentageOrdered B y: Shruthi Costa on 01-19-2025 Basophils/100 WBC (Bld) 0.5 % 0-1 [facility] Bilirubin directOrdered By: Mikhail Esposito on 01-19-2025 Bilirubin.direct [Mass/Vol] 0.10 mg/dL 0.00-0.30 [facility] Bilirubin, totalOrdered By: Mikhail Esposito on 01-19-2025 Bilirubin [Mass/Vol] 0.28 mg/dL 0.00-1.30 [facility] CBC W/Diff, Automatedon 01-02 Absolute Lymph 1.40 X10 3/uL Normal 0.83-4.51 [facility] Comment on above: Performed By: #### L 100.0100, L503.0106 ####[facility] [address] [place], [address] Absolute Neut 2.4 X10 3/uL Normal 2.0-7.7 [facility] Comment on above: Performed By: #### L 100.0100, L503.0106 ####[facility] [address] [place], [address] Basophils/100 WBC (Bld) 0.5 % Normal 0-1 [facility] Comment on above: Performed By: #### L 100.0100, L503.0106 ####[facility] [address] [place], [address] Eosinophils/100 WBC (Bld) 2.1 % Normal 0-5 [facility] Comment on above: Performed By: #### L 100.0100, L503.0106 ####[facility] [address] [place], [address] Erythrocyte distribution width (RBC) [Ratio] 13.1 % Normal 11.6-14.6 [facility] Comment on above: Performed By: #### L 100.0100, L503.0106 ####[facility] [address] [place], [address] Hematocrit (Bld) [Volume fraction] 34.6 % Low 37-47 [facility] Comment on above: Performed By: #### L 100.0100, L503.0106 ####[facility] [address] [place], [address] Hemoglobin (Bld) [Mass/Vol] 11.8 g/dL Low 12.0-15.0 [facility] Comment on above: Performed By: #### L 100.0100, L503.0106 ####[facility] [address] [place], [address] IG% 0.000 Normal 0.0-0.9 [facility] Comment on above: Result Comment: IG% - Immature Granulocytes (promyelocytes, myelocytes andmetamyelocytes) > 1% indicates that a LEFT SHIFT is Present. Performed By: #### L 100.0100, L503.0106 ####[facility] [address] [place], [address] Lymphocytes/100 WBC (Bld) 32.6 % Normal 19-41 [facility] Comment on above: Performed By: #### L 100.0100, L503.0106 ####[facility] [address] [place], [address] MCH (RBC) [Entitic mass] 32.4 pg High 27.0-32.0 [facility] Comment on above: Performed By: #### L 100.0100, L503.0106 ####[facility] [address] [place], [address] MCHC (RBC) [Mass/Vol] 34.1 g/dL Normal 32-36 [facility] Comment on above: Performed By: #### L 100.0100, L503.0106 ####[facility] [address] [place], [address] MCV (RBC) [Entitic vol] 95.1 fL Normal 81-99 [facility] Comment on above: Performed By: #### L 100.0100, L503.0106 ####[facility] [address] [place], [address] Monocytes/100 WBC (Bld) 8.6 % Normal 0-10 [facility] Comment on above: Performed By: #### L 100.0100, L503.0106 ####[facility] [address] [place], [address] Neutrophils/100 WBC (Bld) 56.2 % Normal 47-70 [facility] Comment on above: Performed By: #### L 100.0100, L503.0106 ####[facility] [address] [place], [address] Nucleated RBC (Bld) [#/Vol] 0 10*3/uL Normal 0-5 [facility] Comment on above: Performed By: #### L 100.0100, L503.0106 ####[facility] [address] [place], [address] Platelet mean volume (Bld) [Entitic vol] 11.0 fL Normal 6.2-12.0 [facility] Comment on above: Performed By: #### L 100.0100, L503.0106 ####[facility] [address] [place], [address] Platelets (Bld) [#/Vol] 204 10*3/uL Normal 150-450 [facility] Comment on above: Performed By: #### L 100.0100, L503.0106 ####[facility] [address] [place], [address] RBC (Bld) [#/Vol] 3.64 10*6/uL Low 4.2-5.4 [facility] Comment on above: Performed By: #### L 100.0100, L503.0106 ####[facility] [address] [place], [address] RDW SD 46.2 fl High 35.1-43.9 [facility] Comment on above: Performed By: #### L 100.0100, L503.0106 ####[facility] [address] [place], [address] WBC (Bld) [#/Vol] 4.3 10*3/uL Low 4.4-11.0 [facility] Comment on above: Performed By: #### L 100.0100, L503.0106 ####[facility] [address] [place], [address] Calculated very low density lipoprotein (VLDL) cholesterol measurementOrdered By: Mikhail Esposito on 01-19-2025 Calculated very low density lipoprotein (VLDL) cholesterol measurement 22 mg/dL 5-40 [facility] Carbon dioxide, total [Moles /volume] in Central venous bloodOrdered By: Mayda Garcia on 01-19-2025 CO2 [Moles/Vol] 22.9 mmol/L 21.0-32.0 [facility] Chloride assayOrdered By: Jia Garcia on 01-19-2025 Chloride [Moles/Vol] 103 mmol/L 98-108 [facility] Eosinophil percentageOrdered By: Shruthi Costa on 01-19-2025 Eosinophils/100 WBC (Bld) 2.1 % 0-5 [facility] Erythrocyte distribution wid th ratioOrdered By: Shruthi Costa on 01-19-2025 Erythrocyte distribution width (RBC) [Ratio] 13.1 % 11.6-14.6 [facility] Erythrocyte distribution wid th standard deviationOrdered By: Shruthi Costa on 01-19-2025 Erythrocyte distribution width (RBC) [Ratio] 46.2 fl High 35.1-43.9 [facility] Gastroenterology Visit Repor ton 01-19-2025 Gastroenterology Visit Report Normal [facility] Glomerular filtration rate ( GFR) estimation/1.73 sq m using serum, plasma, or whole bOrdered By: Mayda Garcia on 01-19-2025 GFR/1.73 sq M.predicted among non-blacks MDRD (S/P/Bld) [Vol rate/Area] 43 mL/min/{1.73_m2} Low >60 [facility] Hematocrit Auto (Bld) [Volum e fraction]Ordered By: Shruthi Costa on 01-19-2025 Hematocrit (Bld) [Volume fraction] 34.6 % Low 37-47 [facility] Hemoglobin measurementOrdere d By: Shruthi Costa on 01-19-2025 Hemoglobin (Bld) [Mass/Vol] 11.8 g/dL Low 12.0-15.0 [facility] Immature granulocytes/100 WB C Auto (Bld)Ordered By: Shruthi Costa on 01-19-2025 Immature granulocytes/100 WBC (Bld) 0.000 % 0.0-0.9 [facility] LDL calc ser/plasOrdered By: Mikhail Esposito on 01-19-2025 Cholesterol in LDL [Mass/Vol] 162 mg/dL [facility] Lipid Profileon 01-19-2025 CHOL:HDL 4.15 Normal [facility] Comment on above: Performed By: #### L 500.3400, L500.4100 ####[facility] [address] [place], [address] Cholesterol [Mass/Vol] 242 mg/dL High <=200 [facility] Comment on above: Result Comment: Chol esterol level, Desirable <200 mg/dLBorderline high cholesterol 200-239 mg/dLHigh cholesterol >=240 mg/dLRecommendations of the NCEP Adult Treatment Panel for thefollowing risk-cutoff thresholds for the [place] Americanpopulation. Performed By: #### L 500.3400, L500.4100 ####[facility] [address] [place], [address] Cholesterol in HDL [Mass/Vol] 58 mg/dL Normal [facility] Comment on above: Result Comment: [facility] onal Cholesterol Education Program (NCEP) guidelines:<40 mg/dL: Low HDL-cholesterol (major risk factor for CHD)>= 60 mg/dL: High HDL-cholesterol (negative risk factor forCHD)HDL-cholesterol is affected by a number of factors, e.g.smoking, exercise, hormones, sex and age. Performed By: #### L 500.3400, L500.4100 ####[facility] [address] [place], [address] Cholesterol in LDL [Mass/Vol] 162 mg/dL Normal [facility] Comment on above: Result Comment: Bord zrwdfy=340-927 mg/dL Higher Okad=217 mg/dL or greaterFriedwald Equation for LDL-C Performed By: #### L 500.3400, L500.4100 ####[facility] [address] [place], [address] Cholesterol in VLDL [Mass/Vol] 22 mg/dL Normal 5-40 [facility] Comment on above: Performed By: #### L 500.3400, L500.4100 ####[facility] [address] [place], [address] Triglyceride [Mass/Vol] 111 mg/dL Normal [facility] Comment on above: Result Comment: The drugs N-Acetylcysteine and Metamizole may falselydepress this assay.Normal range: <150 mg/dLBorderline High: 150-199 mg/dLHigh: 200-499 mg/dLVery High: >500 mg/dL Performed By: #### L 500.3400, L500.4100 ####[facility] [address] [place], [address] Liver Profileon 01-19-2025 Albumin [Mass/Vol] 4.0 g/dL Normal 3.4-4.8 [facility] Comment on above: Performed By: #### L 500.3400, L500.4100 ####[facility] [address] [place], [address] ALK PHOS 67 U/L Normal 35-104 [facility] Comment on above: Performed By: #### L 500.3400, L500.4100 ####[facility] [address] [place], [address] ALT [Catalytic activity/Vol] 15 U/L Normal <=34 [facility] Comment on above: Performed By: #### L 500.3400, L500.4100 ####[facility] [address] [place], [address] AST [Catalytic activity/Vol] 22 U/L Normal <=31 [facility] Comment on above: Performed By: #### L 500.3400, L500.4100 ####[facility] [address] [place], [address] Bilirubin [Mass/Vol] 0.28 mg/dL Normal 0.00-1.30 [facility] Comment on above: Performed By: #### L 500.3400, L500.4100 ####[facility] [address] [place], [address] Bilirubin.direct [Mass/Vol] 0.10 mg/dL Normal 0.00-0.30 [facility] Comment on above: Performed By: #### L 500.3400, L500.4100 ####[facility] [address] [place], [address] Globulin (S) [Mass/Vol] 3.0 g/dL Normal 2.2-4.2 [facility] Comment on above: Performed By: #### L 500.3400, L500.4100 ####[facility] [address] [place], [address] T PROT 7.1 g/dL Normal 5.9-8.4 [facility] Comment on above: Performed By: #### L 500.3400, L500.4100 ####[facility] [address] [place], [address] MCV (mean corpuscular volume ) determinationOrdered By: Shruthi Costa on 01-19-2025 MCV (RBC) [Entitic vol] 95.1 fL 81-99 [facility] Mean corpuscular hemoglobin (MCH) determinationOrdered By: Shruthi Costa on 01-19-2025 MCH (RBC) [Entitic mass] 32.4 pg High 27.0-32.0 [facility] Monocyte percentageOrdered B y: Shruthi Costa on 01-19-2025 Monocytes/100 WBC (Bld) 8.6 % 0-10 [facility] Neutrophil percentageOrdered By: Shruthi Costa on 01-19-2025 Neutrophils/100 WBC (Bld) 56.2 % 47-70 [facility] No Panel InformationOrdered By: Mikhail Esposito on 01-19-2025 22 U/L <32 [facility] Platelet countOrdered By: Dimitrios Costa on 01-19-2025 Platelets (Bld) [#/Vol] 204 10*3/uL 150-450 [facility] Potassium measurement (mass/ volume)Ordered By: Mayda Garcia on 01-19-2025 Potassium (Unsp spec) [Mass/Vol] 4.3 mmol/L 3.3-5.1 [facility] RBC Auto (Bld) [#/Vol]Ordere d By: Shruthi Costa on 01-19-2025 RBC (Bld) [#/Vol] 3.64 10*6/uL Low 4.2-5.4 [facility] Serum creatinine measurement (mass/volume)Ordered By: Mayda Garcia on 01-19-2025 Creatinine [Mass/Vol] 1.32 mg/dL High 0.70-1.20 [facility] Serum globulin measurementOr dered By: Mikhail Esposito on 01-19-2025 Globulin (S) [Mass/Vol] 3.0 g/dL 2.2-4.2 [facility] Serum glucose measurement (m ass/volume)Ordered By: Mayda Garcia on 01-19-2025 Glucose [Mass/Vol] 90 mg/dL 70-99 [facility] Serum or plasma alanine carvalho otransferase (ALT) measurementOrdered By: Mikhail Esposito on 01-19-2025 ALT [Catalytic activity/Vol] 15 U/L <35 [facility] Serum or plasma albumin loretta urement (mass/volume)Ordered By: Mikhail Esposito on 01-19-2025 Albumin [Mass/Vol] 4.0 g/dL 3.4-4.8 [facility] Serum or plasma alkaline dima sphatase measurementOrdered By: Mikhail Esposito on 01-19-2025 ALP [Catalytic activity/Vol] 67 U/L 35-104 [facility] Serum or plasma calcium loretta urement (mass/volume)Ordered By: Mayda Garcia on 01-19-2025 Calcium [Mass/Vol] 9.3 mg/dL 7.6-11.0 [facility] Serum or plasma cholesterol in HDL measurement (mass/volume)Ordered By: Mikhail Esposito on 01-19-2025 Cholesterol in HDL [Mass/Vol] 58 mg/dL >40 [facility] Serum or plasma cholesterol measurement (mass/volume)Ordered By: Mikhail Esposito on 01-19-2025 Cholesterol [Mass/Vol] 242 mg/dL High <201 [facility] Serum or plasma urea nitroge n measurement (mass/volume)Ordered By: Randalconsuelo Garcia on 01-19-2025 Urea nitrogen [Mass/Vol] 29 mg/dL High 4-19 [facility] Sodium levelOrdered By: Noris Garcia on 01-19-2025 Sodium [Moles/Vol] 139 mmol/L 133-145 [facility] Total proteinOrdered By: Fer Esposito on 01-19-2025 Protein [Mass/Vol] 7.1 g/dL 5.9-8.4 [facility] Vitamin B12on 01-19-2025 Cobalamin (Vitamin B12) [Mass/Vol] 332 pg/mL Normal 180-914 [facility] Comment on above: Performed By: #### L 100.0100, L503.0106 ####[facility] [address] [place], [address] Vitamin B12 ser/plasOrdered By: Shruthi Costa on 01-19-2025 Cobalamin (Vitamin B12) [Mass/Vol] 332 pg/mL 180-914 [facility] White blood cell (WBC) count Ordered By: Shruthi Costa on 01-19-2025 WBC (Bld) [#/Vol] 4.3 10*3/uL Low 4.4-11.0 [facility] Internal Medicine Office Vis iton 11-16-2024 Internal Medicine Office Visit Normal [facility] 12 Lead EKGon 11-14-2024 12 Lead EKG Normal [facility] Anion gap in Serum or Plasma Ordered By: Edwin Kaplan on 11-14-2024 Anion gap [Moles/Vol] 11 mmol/L 5-15 [facility] BUN/creatinine ratioOrdered By: Edwin Kaplan on 11-14-2024 Urea nitrogen/Creatinine [Mass ratio] 17.6 mg/mg 10-20 [facility] Basic Metabolic Profile (BMP )on 11-14-2024 BUN/CRE 17.6 RATIO Normal 10-20 [facility] Comment on above: Performed By: #### L 500.2500, L100.0500, L500.4100 ####[facility] [address] [place], [address] Calcium [Mass/Vol] 8.8 mg/dL Normal 7.6-11.0 [facility] Comment on above: Performed By: #### L 500.2500, L100.0500, L500.4100 ####[facility] [address] [place], [address] Chloride [Moles/Vol] 104 mmol/L Normal 98-108 [facility] Comment on above: Performed By: #### L 500.2500, L100.0500, L500.4100 ####[facility] [address] [place], [address] CO2 [Moles/Vol] 26.0 mmol/L Normal 21.0-32.0 [facility] Comment on above: Performed By: #### L 500.2500, L100.0500, L500.4100 ####[facility] [address] [place], [address] Creatinine [Mass/Vol] 1.11 mg/dL Normal 0.70-1.20 [facility] Comment on above: Performed By: #### L 500.2500, L100.0500, L500.4100 ####[facility] [address] [place], [address] ECRCL 44.72 ml/min Low 50-250 [facility] Comment on above: Performed By: #### L 500.2500, L100.0500, L500.4100 ####[facility] [address] [place], [address] GAP 11 Normal 5-15 [facility] Comment on above: Performed By: #### L 500.2500, L100.0500, L500.4100 ####[facility] [address] [place], [address] GFR/1.73 sq M.predicted among non-blacks MDRD (S/P/Bld) [Vol rate/Area] 53 mL/min/{1.73_m2} Low >60 [facility] Comment on above: Result Comment: mL/m in/1.73m2 CKD-EPI Creatinine Equation (2020) Performed By: #### L 500.2500, L100.0500, L500.4100 ####[facility] [address] [place], [address] Glucose [Mass/Vol] 111 mg/dL High 70-99 [facility] Comment on above: Performed By: #### L 500.2500, L100.0500, L500.4100 ####[facility] [address] [place], [address] Potassium [Moles/Vol] 4.4 mmol/L Normal 3.3-5.1 [facility] Comment on above: Performed By: #### L 500.2500, L100.0500, L500.4100 ####[facility] [address] [place], [address] Sodium [Moles/Vol] 142 mmol/L Normal 133-145 [facility] Comment on above: Performed By: #### L 500.2500, L100.0500, L500.4100 ####[facility] [address] [place], [address] Urea nitrogen [Mass/Vol] 20 mg/dL High 4-19 [facility] Comment on above: Performed By: #### L 500.2500, L100.0500, L500.4100 ####[facility] [address] [place], [address] Blood platelets count (numbe r/volume)Ordered By: Edwin Kaplan on 11-14-2024 Platelets (Bld) [#/Vol] 211 10*3/uL 150-450 [facility] CBC-Complete Blood Cnt No Elizabeth hamiltonon 11-14-2024 Erythrocyte distribution width (RBC) [Ratio] 14.1 % Normal 11.6-14.6 [facility] Comment on above: Performed By: #### L 500.2500, L100.0500, L500.4100 ####[facility] [address] [place], [address] Hematocrit (Bld) [Volume fraction] 34.3 % Low 37-47 [facility] Comment on above: Performed By: #### L 500.2500, L100.0500, L500.4100 ####[facility] [address] [place], [address] Hemoglobin (Bld) [Mass/Vol] 11.5 g/dL Low 12.0-15.0 [facility] Comment on above: Performed By: #### L 500.2500, L100.0500, L500.4100 ####[facility] [address] [place], [address] MCH (RBC) [Entitic mass] 32.5 pg High 27.0-32.0 [facility] Comment on above: Performed By: #### L 500.2500, L100.0500, L500.4100 ####[facility] [address] [place], [address] MCHC (RBC) [Mass/Vol] 33.5 g/dL Normal 32-36 [facility] Comment on above: Performed By: #### L 500.2500, L100.0500, L500.4100 ####[facility] [address] [place], [address] MCV (RBC) [Entitic vol] 96.9 fL Normal 81-99 [facility] Comment on above: Performed By: #### L 500.2500, L100.0500, L500.4100 ####[facility] [address] [place], [address] Platelet mean volume (Bld) [Entitic vol] 10.9 fL Normal 6.2-12.0 [facility] Comment on above: Performed By: #### L 500.2500, L100.0500, L500.4100 ####[facility] [address] [place], [address] Platelets (Bld) [#/Vol] 211 10*3/uL Normal 150-450 [facility] Comment on above: Performed By: #### L 500.2500, L100.0500, L500.4100 ####[facility] [address] [place], [address] RDW SD 50.5 fl High 35.1-43.9 [facility] Comment on above: Performed By: #### L 500.2500, L100.0500, L500.4100 ####[facility] [address] [place], [address] RBC (Bld) [#/Vol] 3.54 10*6/uL Low 4.2-5.4 [facility] Comment on above: Performed By: #### L 500.2500, L100.0500, L500.4100 ####[facility] [address] [place], [address] WBC (Bld) [#/Vol] 5.6 10*3/uL Normal 4.4-11.0 [facility] Comment on above: Performed By: #### L 500.2500, L100.0500, L500.4100 ####[facility] [address] [place], [address] Calculated very low density lipoprotein (VLDL) cholesterol measurementOrdered By: Edwin Kaplan on 11-14-2024 Calculated very low density lipoprotein (VLDL) cholesterol measurement 17 mg/dL 5-40 [facility] Carbon dioxide, total [Moles /volume] in Central venous bloodOrdered By: Edwin Kaplan on 11-14-2024 CO2 [Moles/Vol] 26.0 mmol/L 21.0-32.0 [facility] Cardiovascular stress test r eportOrdered By: Winston Johnson on 11-14-2024 Study report [facility] Work Phone: [phone] Chloride assayOrdered By: Ino Kaplan on 11-14-2024 Chloride [Moles/Vol] 104 mmol/L 98-108 [facility] Consultation - Cardiologyon 11-14-2024 Consultation - Cardiology Normal [facility] Electrocardiogram reportOrde red By: Aleksandr Salinas on 11-14-2024 EKG study [facility] Work Phone: [phone] Erythrocyte distribution wid th ratioOrdered By: Edwin Kaplan on 11-14-2024 Erythrocyte distribution width (RBC) [Ratio] 14.1 % 11.6-14.6 [facility] Glomerular filtration rate ( GFR) estimation/1.73 sq m using serum, plasma, or whole bOrdered By: Edwin Kaplan on 11-14-2024 GFR/1.73 sq M.predicted among non-blacks MDRD (S/P/Bld) [Vol rate/Area] 53 mL/min/{1.73_m2} Low >60 [facility] Hematocrit Auto (Bld) [Volum e fraction]Ordered By: Edwin Kaplan on 11-14-2024 Hematocrit (Bld) [Volume fraction] 34.3 % Low 37-47 [facility] Hemoglobin measurementOrdere d By: Edwin Kaplan on 11-14-2024 Hemoglobin (Bld) [Mass/Vol] 11.5 g/dL Low 12.0-15.0 [facility] LDL calc ser/plasOrdered By: Edwin Kaplan on 11-14-2024 Cholesterol in LDL [Mass/Vol] 162 mg/dL [facility] Lipid Profileon 11-14-2024 CHOL:HDL 4.47 Normal [facility] Comment on above: Performed By: #### L 500.2500, L100.0500, L500.4100 ####[facility] [address] [place], [address] Cholesterol [Mass/Vol] 230 mg/dL High <=200 [facility] Comment on above: Result Comment: Chol esterol level, Desirable <200 mg/dLBorderline high cholesterol 200-239 mg/dLHigh cholesterol >=240 mg/dLRecommendations of the NCEP Adult Treatment Panel for thefollowing risk-cutoff thresholds for the [place] [facility]. Performed By: #### L 500.2500, L100.0500, L500.4100 ####[facility] [address] [place], [address] Cholesterol in HDL [Mass/Vol] 52 mg/dL Normal [facility] Comment on above: Result Comment: Mary Grace onal Cholesterol Education Program (NCEP) guidelines:<40 mg/dL: Low HDL-cholesterol (major risk factor for CHD)>= 60 mg/dL: High HDL-cholesterol (negative risk factor forCHD)HDL-cholesterol is affected by a number of factors, e.g.smoking, exercise, hormones, sex and age. Performed By: #### L 500.2500, L100.0500, L500.4100 ####[facility] [address] [place], [address] Cholesterol in LDL [Mass/Vol] 162 mg/dL Normal [facility] Comment on above: Result Comment: Bord ospttu=647-366 mg/dL Higher Wgdd=327 mg/dL or greater Performed By: #### L 500.2500, L100.0500, L500.4100 ####[facility] [address] [place], [address] Cholesterol in VLDL [Mass/Vol] 17 mg/dL Normal 5-40 [facility] Comment on above: Performed By: #### L 500.2500, L100.0500, L500.4100 ####[facility] [address] [place], [address] Triglyceride [Mass/Vol] 85 mg/dL Normal [facility] Comment on above: Result Comment: The drugs N-Acetylcysteine and Metamizole may falselydepress this assay.Normal range: <150 mg/dLBorderline High: 150-199 mg/dLHigh: 200-499 mg/dLVery High: >500 mg/dL Performed By: #### L 500.2500, L100.0500, L500.4100 ####[facility] [address] [place], [address] MCV (mean corpuscular volume ) determinationOrdered By: Edwin Kaplan on 11-14-2024 MCV (RBC) [Entitic vol] 96.9 fL 81-99 [facility] Mean corpuscular hemoglobin (MCH) determinationOrdered By: Edwin Kaplan on 11-14-2024 MCH (RBC) [Entitic mass] 32.5 pg High 27.0-32.0 [facility] Potassium measurement (mass/ volume)Ordered By: Edwin Kaplan on 11-14-2024 Potassium (Unsp spec) [Mass/Vol] 4.4 mmol/L 3.3-5.1 [facility] RBC Auto (Bld) [#/Vol]Ordere d By: Edwin Kaplan on 11-14-2024 RBC (Bld) [#/Vol] 3.54 10*6/uL Low 4.2-5.4 [facility] RDWOrdered By: Edwin aponte on 11-14-2024 RDW 50.5 fl High 35.1-43.9 [facility] RESPIRATORY PANEL MOLECULARo n 11-14-2024 RP PANEL Normal [facility] Comment on above: Performed By: #### M 100.638 ####[facility] [address] [place], [place], [id number] Serum creatinine measurement (mass/volume)Ordered By: Edwin Kaplan on 11-14-2024 Creatinine [Mass/Vol] 1.11 mg/dL 0.70-1.20 [facility] Serum glucose measurement (m ass/volume)Ordered By: Edwin Kaplan on 11-14-2024 Glucose [Mass/Vol] 111 mg/dL High 70-99 [facility] Serum or plasma calcium loretta urement (mass/volume)Ordered By: Edwin Kaplan on 11-14-2024 Calcium [Mass/Vol] 8.8 mg/dL 7.6-11.0 [facility] Serum or plasma cholesterol in HDL measurement (mass/volume)Ordered By: Edwin Kaplan on 11-14-2024 Cholesterol in HDL [Mass/Vol] 52 mg/dL >40 [facility] Serum or plasma cholesterol measurement (mass/volume)Ordered By: Edwin Kaplan on 11-14-2024 Cholesterol [Mass/Vol] 230 mg/dL High <201 [facility] Serum or plasma urea nitroge n measurement (mass/volume)Ordered By: Edwin Kaplan on 11-14-2024 Urea nitrogen [Mass/Vol] 20 mg/dL High 4-19 [facility] Sodium levelOrdered By: Cayden Kaplan on 11-14-2024 Sodium [Moles/Vol] 142 mmol/L 133-145 [facility] Stress Reporton 11-14-2024 Stress Report Normal [facility] White blood cell (WBC) count Ordered By: Edwin Kaplan on 11-14-2024 WBC (Bld) [#/Vol] 5.6 10*3/uL 4.4-11.0 [facility] 12 Lead EKGon 11-13-2024 12 Lead EKG Normal [facility] 12 Lead EKG Normal [facility] Absolute lymphocyte countOrd ered By: Turner Armendariz on 11-13-2024 Lymphocytes Auto (Unsp spec) [#/Vol] 1.65 10*3/uL 0.83-4.51 [facility] Anion gap in Serum or Plasma Ordered By: Turner Armendariz on 11-13-2024 Anion gap [Moles/Vol] 12 mmol/L 5-15 [facility] Automated lymphocyte count a s percentage of total leukocytesOrdered By: Turner Armendariz on 11-13-2024 Lymphocytes/100 WBC Auto (Unsp spec) 35.9 % 19-41 [facility] BUN/creatinine ratioOrdered By: Turner Armendariz on 11-13-2024 Urea nitrogen/Creatinine [Mass ratio] 25.2 mg/mg High 10-20 [facility] Basic Metabolic Profile (BMP )on 11-13-2024 BUN/CRE 25.2 RATIO High 10-20 [facility] Comment on above: Performed By: #### L 100.0100, L500.2500, L501.4021 ####[facility] [address] [place], [address] Calcium [Mass/Vol] 9.0 mg/dL Normal 7.6-11.0 [facility] Comment on above: Performed By: #### L 100.0100, L500.2500, L501.4021 ####[facility] [address] [place], [address] Chloride [Moles/Vol] 104 mmol/L Normal 98-108 [facility] Comment on above: Performed By: #### L 100.0100, L500.2500, L501.4021 ####[facility] [address] [place], [address] CO2 [Moles/Vol] 23.9 mmol/L Normal 21.0-32.0 [facility] Comment on above: Performed By: #### L 100.0100, L500.2500, L501.4021 ####[facility] [address] [place], [address] Creatinine [Mass/Vol] 0.82 mg/dL Normal 0.70-1.20 [facility] Comment on above: Performed By: #### L 100.0100, L500.2500, L501.4021 ####[facility] [address] [place], [address] GAP 12 Normal 5-15 [facility] Comment on above: Performed By: #### L 100.0100, L500.2500, L501.4021 ####[facility] [address] [place], [address] GFR/1.73 sq M.predicted among non-blacks MDRD (S/P/Bld) [Vol rate/Area] 77 mL/min/{1.73_m2} Normal >60 [facility] Comment on above: Result Comment: mL/m in/1.73m2 CKD-EPI Creatinine Equation (2020) Performed By: #### L 100.0100, L500.2500, L501.4021 ####[facility] [address] [place], [address] Glucose [Mass/Vol] 126 mg/dL High 70-99 [facility] Comment on above: Performed By: #### L 100.0100, L500.2500, L501.4021 ####[facility] [address] [place], [address] Potassium [Moles/Vol] 4.5 mmol/L Normal 3.3-5.1 [facility] Comment on above: Result Comment: Hemo lysis present, Results??could be affected.?? Performed By: #### L 100.0100, L500.2500, L501.4021 ####[facility] [address] [place], [address] Sodium [Moles/Vol] 140 mmol/L Normal 133-145 [facility] Comment on above: Performed By: #### L 100.0100, L500.2500, L501.4021 ####[facility] [address] [place], [address] Urea nitrogen [Mass/Vol] 21 mg/dL High 4-19 [facility] Comment on above: Performed By: #### L 100.0100, L500.2500, L501.4021 ####[facility] [address] [place], [address] Basophil percentageOrdered B y: Turner Quinonesdavid on 11-13-2024 Basophils/100 WBC (Bld) 0.2 % 0-1 [facility] CBC W/Diff, Automatedon 11-01 Absolute Lymph 1.65 X10 3/uL Normal 0.83-4.51 [facility] Comment on above: Performed By: #### L 100.0100, L500.2500, L501.4021 ####[facility] [address] [place], [address] Absolute Neut 2.6 X10 3/uL Normal 2.0-7.7 [facility] Comment on above: Performed By: #### L 100.0100, L500.2500, L501.4021 ####[facility] [address] [place], [address] Basophils/100 WBC (Bld) 0.2 % Normal 0-1 [facility] Comment on above: Performed By: #### L 100.0100, L500.2500, L501.4021 ####[facility] [address] [place], [address] Eosinophils/100 WBC (Bld) 1.7 % Normal 0-5 [facility] Comment on above: Performed By: #### L 100.0100, L500.2500, L501.4021 ####[facility] [address] [place], [address] Erythrocyte distribution width (RBC) [Ratio] 14.2 % Normal 11.6-14.6 [facility] Comment on above: Performed By: #### L 100.0100, L500.2500, L501.4021 ####[facility] [address] [place], [address] Hematocrit (Bld) [Volume fraction] 33.3 % Low 37-47 [facility] Comment on above: Performed By: #### L 100.0100, L500.2500, L501.4021 ####[facility] [address] [place], [address] Hemoglobin (Bld) [Mass/Vol] 11.1 g/dL Low 12.0-15.0 [facility] Comment on above: Performed By: #### L 100.0100, L500.2500, L501.4021 ####[facility] [address] [place], [address] IG% 0.400 Normal 0.0-0.9 [facility] Comment on above: Result Comment: IG% - Immature Granulocytes (promyelocytes, myelocytes andmetamyelocytes) > 1% indicates that a LEFT SHIFT is Present. Performed By: #### L 100.0100, L500.2500, L501.4021 ####[facility] [address] [place], [address] Lymphocytes/100 WBC (Bld) 35.9 % Normal 19-41 [facility] Comment on above: Performed By: #### L 100.0100, L500.2500, L501.4021 ####[facility] [address] [place], [address] MCH (RBC) [Entitic mass] 32.6 pg High 27.0-32.0 [facility] Comment on above: Performed By: #### L 100.0100, L500.2500, L501.4021 ####[facility] [address] [place], [address] MCHC (RBC) [Mass/Vol] 33.3 g/dL Normal 32-36 [facility] Comment on above: Performed By: #### L 100.0100, L500.2500, L501.4021 ####[facility] [address] [place], [address] MCV (RBC) [Entitic vol] 97.7 fL Normal 81-99 [facility] Comment on above: Performed By: #### L 100.0100, L500.2500, L501.4021 ####[facility] [address] [place], [address] Monocytes/100 WBC (Bld) 6.3 % Normal 0-10 [facility] Comment on above: Performed By: #### L 100.0100, L500.2500, L501.4021 ####[facility] [address] [place], [address] Neutrophils/100 WBC (Bld) 55.5 % Normal 47-70 [facility] Comment on above: Performed By: #### L 100.0100, L500.2500, L501.4021 ####[facility] [address] [place], [address] Nucleated RBC (Bld) [#/Vol] 0 10*3/uL Normal 0-5 [facility] Comment on above: Performed By: #### L 100.0100, L500.2500, L501.4021 ####[facility] [address] [place], [address] Platelet mean volume (Bld) [Entitic vol] 11.5 fL Normal 6.2-12.0 [facility] Comment on above: Performed By: #### L 100.0100, L500.2500, L501.4021 ####[facility] [address] [place], [address] Platelets (Bld) [#/Vol] 224 10*3/uL Normal 150-450 [facility] Comment on above: Performed By: #### L 100.0100, L500.2500, L501.4021 ####[facility] [address] [place], [address] RBC (Bld) [#/Vol] 3.41 10*6/uL Low 4.2-5.4 [facility] Comment on above: Performed By: #### L 100.0100, L500.2500, L501.4021 ####[facility] [address] [place], [address] RDW SD 50.8 fl High 35.1-43.9 [facility] Comment on above: Performed By: #### L 100.0100, L500.2500, L501.4021 ####[facility] [address] [place], [place], [address] WBC (Bld) [#/Vol] 4.6 10*3/uL Normal 4.4-11.0 [facility] Comment on above: Performed By: #### L 100.0100, L500.2500, L501.4021 ####[facility] [address] [place], [address] Carbon dioxide, total [Moles /volume] in Central venous bloodOrdered By: Turner Armendariz on 11-13-2024 CO2 [Moles/Vol] 23.9 mmol/L 21.0-32.0 [facility] Chest 1 View (Portable)on Chest 1 View (Portable) Normal [facility] Chloride assayOrdered By: Sabiha Armendariz on 11-13-2024 Chloride [Moles/Vol] 104 mmol/L 98-108 [facility] D-Dimer Quantitative (DVT/PE )on 11-13-2024 D-DIMER QUANT 0.27 FEU/ug/m Normal 0.27-0.49 [facility] Comment on above: Result Comment: NORM AL D-Dimer level (<0.50) indicates no DVT or PE. Performed By: #### L 300.8000 ####[facility] [address] [place], [place], [id number] Emergency Department Summary on 11-13-2024 Emergency Department Summary Normal [facility] Eosinophil percentageOrdered By: Turner Armendariz on 11-13-2024 Eosinophils/100 WBC (Bld) 1.7 % 0-5 [facility] Erythrocyte distribution wid th ratioOrdered By: Remus Ungdavid on 11-13-2024 Erythrocyte distribution width (RBC) [Ratio] 14.2 % 11.6-14.6 [facility] Erythrocyte distribution wid th standard deviationOrdered By: Rem Ungdavid on 11-13-2024 Erythrocyte distribution width (RBC) [Ratio] 50.8 fl High 35.1-43.9 [facility] Glomerular filtration rate ( GFR) estimation/1.73 sq m using serum, plasma, or whole bOrdered By: Turner Armendariz on 11-13-2024 GFR/1.73 sq M.predicted among non-blacks MDRD (S/P/Bld) [Vol rate/Area] 77 mL/min/{1.73_m2} >60 [facility] H AND P Exam - Hospitaliston 11-13-2024 H&P Exam - Hospitalist Normal [facility] Hematocrit Auto (Bld) [Volum e fraction]Ordered By: [facility] Arm[facility] on 11-13-2024 Hematocrit (Bld) [Volume fraction] 33.3 % Low 37-47 [facility] Hemoglobin A1con 11-13-2024 HbA1c (Bld) [Mass fraction] 6.6 % High <=5.6 [facility] Comment on above: Result Comment: Norm al < 5.7 % Prediabetic 5.7 - 6.4 % Diabetic >or= 6.5 % Please note range changes. Performed By: #### L 501.9985 ####[facility] [address] [place], [place], [address] Hemoglobin A1c percentageOrd ered By: Edwin Kaplan on 11-13-2024 HbA1c (Bld) [Mass fraction] 6.6 % High <5.7 [facility] Hemoglobin measurementOrdere d By: Turner Armendariz on 11-13-2024 Hemoglobin (Bld) [Mass/Vol] 11.1 g/dL Low 12.0-15.0 [facility] Immature granulocytes/100 WB C Auto (Bld)Ordered By: Turner Armendariz on 11-13-2024 Immature granulocytes/100 WBC (Bld) 0.400 % 0.0-0.9 [facility] L499.0042on 11-13-2024 Trop T High Sen 18 ng/L High <=14 [facility] Comment on above: Performed By: #### L 499.0042 ####[facility] [address] [place], [place], [address] L499.0043on 11-13-2024 Trop T High Sen 10 ng/L Normal <=14 [facility] Comment on above: Performed By: #### L 499.0043 ####[facility] [address] [place], [address] L501.4021on 11-13-2024 Trop T High Sen 9 ng/L Normal <=14 [facility] Comment on above: Performed By: #### L 100.0100, L500.2500, L501.4021 ####[facility] [address] [place], [address] L503.7505on 11-13-2024 Natriuretic peptide B (Bld) [Mass/Vol] 77 pg/mL Normal <=900 [facility] Comment on above: Result Comment: Hear t Failure Unlikely: < 300 pg/mLHeart Failure Likely< 50 Years: > 450 pg/mL50-75 Years: > 900 pg/mL>75 Years: > 1800 pg/mL Performed By: #### L 503.7505, L501.9520 ####[facility] [address] [place], [address] MCV (mean corpuscular volume ) determinationOrdered By: Turner Armendariz on 11-13-2024 MCV (RBC) [Entitic vol] 97.7 fL 81-99 [facility] Mean corpuscular hemoglobin (MCH) determinationOrdered By: Turner Armendariz on 11-13-2024 MCH (RBC) [Entitic mass] 32.6 pg High 27.0-32.0 [facility] Monocyte percentageOrdered B y: Remus Armendariz on 11-13-2024 Monocytes/100 WBC (Bld) 6.3 % 0-10 [facility] Natriuretic peptide.B prohor thai N-Terminal [Mass/volume] in Serum or PlasmaOrdered By: Edwin Kaplan on 11-13-2024 Natriuretic peptide.B prohormone N-Terminal [Mass/Vol] 77 pg/mL <900 [facility] Neutrophil percentageOrdered By: Turner Armendariz on 11-13-2024 Neutrophils/100 WBC (Bld) 55.5 % 47-70 [facility] Platelet countOrdered By: Sabiha Armendariz on 11-13-2024 Platelets (Bld) [#/Vol] 224 10*3/uL 150-450 [facility] Potassium measurement (mass/ volume)Ordered By: Turner Quinonesdavid on 11-13-2024 Potassium (Unsp spec) [Mass/Vol] 4.5 mmol/L 3.3-5.1 [facility] RBC Auto (Bld) [#/Vol]Ordere d By: Turner Armenadriz on 11-13-2024 RBC (Bld) [#/Vol] 3.41 10*6/uL Low 4.2-5.4 [facility] Respiratory pathogens detect ion panel by molecular detection methodOrdered By: Edwin Kaplan on 11-13-2024 Respiratory pathogens DNA and RNA panel GERONIMO+probe (Resp) [facility] Serum creatinine measurement (mass/volume)Ordered By: Turner Armendariz on 11-13-2024 Creatinine [Mass/Vol] 0.82 mg/dL 0.70-1.20 [facility] Serum glucose measurement (m ass/volume)Ordered By: Turner Armendariz on 11-13-2024 Glucose [Mass/Vol] 126 mg/dL High 70-99 [facility] Serum or plasma calcium loretta urement (mass/volume)Ordered By: Natalie Marcello on 11-13-2024 Calcium [Mass/Vol] 9.0 mg/dL 7.6-11.0 [facility] Serum or plasma urea nitroge n measurement (mass/volume)Ordered By: Turner Armendariz on 11-13-2024 Urea nitrogen [Mass/Vol] 21 mg/dL High 4-19 [facility] Sodium levelOrdered By: Felisha Armendariz on 11-13-2024 Sodium [Moles/Vol] 140 mmol/L 133-145 [facility] TSH DL <= 0.005 mIU/L QnOrde red By: Edwin Kaplan on 11-13-2024 TSH Qn 3.680 uIU/mL 0.300-4.200 [facility] Thyroid Stim Hormone (TSH)on 11-13-2024 TSH 3.680 uIU/mL Normal 0.300-4.200 [facility] Comment on above: Performed By: #### L 503.7505, L501.9520 ####[facility] [address] [place], [address] Troponin T.cardiac [Mass/vol ume] in Serum or Plasma by High sensitivity methodOrdered By: Turner Armendariz on 11-13-2024 Troponin T.cardiac High sensitivity method [Mass/Vol] 10 ng/L <14 [facility] Troponin T.cardiac High sensitivity method [Mass/Vol] 18 ng/L High <14 [facility] Troponin T.cardiac High sensitivity method [Mass/Vol] 9 ng/L Invalid Interpretation Code <14 [facility] White blood cell (WBC) count Ordered By: Turner Armendariz on 11-13-2024 WBC (Bld) [#/Vol] 4.6 10*3/uL 4.4-11.0 [facility] CBC-Complete Blood Cnt No Di ffon 11-11-2024 HCT Normal 37-47 [facility] Comment on above: Result Comment: UTO X2 ATTEMPTS - PATIENT LEFT TO GO TO SLEEP STUDY NEVERCAME BACK - EEGGEMAN Performed By: #### L 500.4050, L100.0500 ####[facility] [address] [place], [address] HGB Normal 12.0-15.0 [facility] Comment on above: Result Comment: UTO X2 ATTEMPTS - PATIENT LEFT TO GO TO SLEEP STUDY NEVERCAME BACK - EEGGEMAN Performed By: #### L 500.4050, L100.0500 ####[facility] [address] [place], [address] MCH Normal 27.0-32.0 [facility] Comment on above: Result Comment: UTO X2 ATTEMPTS - PATIENT LEFT TO GO TO SLEEP STUDY NEVERCAME BACK - EEGGEMAN Performed By: #### L 500.4050, L100.0500 ####[facility] [address] [place], [address] MCHC Normal 32-36 [facility] Comment on above: Result Comment: UTO X2 ATTEMPTS - PATIENT LEFT TO GO TO SLEEP STUDY NEVERCAME BACK - EEGGEMAN Performed By: #### L 500.4050, L100.0500 ####[facility] [address] [place], [address] MCV Normal 81-99 [facility] Comment on above: Result Comment: UTO X2 ATTEMPTS - PATIENT LEFT TO GO TO SLEEP STUDY NEVERCAME BACK - EEGGEMAN Performed By: #### L 500.4050, L100.0500 ####[facility] [address] [place], [address] PLT Normal 150-450 [facility] Comment on above: Result Comment: UTO X2 ATTEMPTS - PATIENT LEFT TO GO TO SLEEP STUDY NEVERCAME BACK - EEGGEMAN Performed By: #### L 500.4050, L100.0500 ####[facility] [address] [place], [address] RBC Normal 4.2-5.4 [facility] Comment on above: Result Comment: UTO X2 ATTEMPTS - PATIENT LEFT TO GO TO SLEEP STUDY NEVERCAME BACK - EEGGEMAN Performed By: #### L 500.4050, L100.0500 ####[facility] [address] [place], [address] RDW CV Normal 11.6-14.6 [facility] Comment on above: Result Comment: UTO X2 ATTEMPTS - PATIENT LEFT TO GO TO SLEEP STUDY NEVERCAME BACK - EEGGEMAN Performed By: #### L 500.4050, L100.0500 ####[facility] [address] [place], [address] RDW SD Normal 35.1-43.9 [facility] Comment on above: Result Comment: UTO X2 ATTEMPTS - PATIENT LEFT TO GO TO SLEEP STUDY NEVERCAME BACK - EEGGEMAN Performed By: #### L 500.4050, L100.0500 ####[facility] [address] [place], [address] WBC Normal 4.4-11.0 [facility] Comment on above: Result Comment: UTO X2 ATTEMPTS - PATIENT LEFT TO GO TO SLEEP STUDY NEVERCAME BACK - EEGGEMAN Performed By: #### L 500.4050, L100.0500 ####[facility] [address] [place], [address] Comprehensive Metabolic Prof ilon 11-11-2024 ALB Normal 3.4-4.8 [facility] Comment on above: Result Comment: UTO X2 ATTEMPTS - PATIENT LEFT TO GO TO SLEEP STUDY NEVERCAME BACK - EEGGEMAN Performed By: #### L 500.4050, L100.0500 ####[facility] [address] [place], [address] ALK PHOS Normal 35-104 [facility] Comment on above: Result Comment: UTO X2 ATTEMPTS - PATIENT LEFT TO GO TO SLEEP STUDY NEVERCAME BACK - EEGGEMAN Performed By: #### L 500.4050, L100.0500 ####[facility] [address] [place], [address] ALT Normal <=34 [facility] Comment on above: Result Comment: UTO X2 ATTEMPTS - PATIENT LEFT TO GO TO SLEEP STUDY NEVERCAME BACK - EEGGEMAN Performed By: #### L 500.4050, L100.0500 ####[facility] [address] [place], [address] AST Normal <=31 [facility] Comment on above: Result Comment: UTO X2 ATTEMPTS - PATIENT LEFT TO GO TO SLEEP STUDY NEVERCAME BACK - EEGGEMAN Performed By: #### L 500.4050, L100.0500 ####[facility] [address] [place], [address] BUN Normal 4-19 [facility] Comment on above: Result Comment: UTO X2 ATTEMPTS - PATIENT LEFT TO GO TO SLEEP STUDY NEVERCAME BACK - EEGGEMAN Performed By: #### L 500.4050, L100.0500 ####[facility] [address] [place], [address] BUN/CRE Normal 10-20 [facility] Comment on above: Result Comment: UTO X2 ATTEMPTS - PATIENT LEFT TO GO TO SLEEP STUDY NEVERCAME BACK - EEGGEMAN Performed By: #### L 500.4050, L100.0500 ####[facility] [address] [place], [address] Calcium Normal 7.6-11.0 [facility] Comment on above: Result Comment: UTO X2 ATTEMPTS - PATIENT LEFT TO GO TO SLEEP STUDY NEVERCAME BACK - EEGGEMAN Performed By: #### L 500.4050, L100.0500 ####[facility] [address] [place], [address] CL Normal 98-108 [facility] Comment on above: Result Comment: UTO X2 ATTEMPTS - PATIENT LEFT TO GO TO SLEEP STUDY NEVERCAME BACK - EEGGEMAN Performed By: #### L 500.4050, L100.0500 ####[facility] [address] [place], [address] CO2 Normal 21.0-32.0 [facility] Comment on above: Result Comment: UTO X2 ATTEMPTS - PATIENT LEFT TO GO TO SLEEP STUDY NEVERCAME BACK - EEGGEMAN Performed By: #### L 500.4050, L100.0500 ####[facility] [address] [place], [address] CREAT,SERUM Normal 0.70-1.20 [facility] Comment on above: Result Comment: UTO X2 ATTEMPTS - PATIENT LEFT TO GO TO SLEEP STUDY NEVERCAME BACK - EEGGEMAN Performed By: #### L 500.4050, L100.0500 ####[facility] [address] [place], [address] eGFR Normal >60 [facility] Comment on above: Result Comment: UTO X2 ATTEMPTS - PATIENT LEFT TO GO TO SLEEP STUDY NEVERCAME BACK - EEGGEMAN Performed By: #### L 500.4050, L100.0500 ####[facility] [address] [place], [address] GAP Normal 5-15 [facility] Comment on above: Result Comment: UTO X2 ATTEMPTS - PATIENT LEFT TO GO TO SLEEP STUDY NEVERCAME BACK - EEGGEMAN Performed By: #### L 500.4050, L100.0500 ####[facility] [address] [place], [address] GLU Normal 70-99 [facility] Comment on above: Result Comment: UTO X2 ATTEMPTS - PATIENT LEFT TO GO TO SLEEP STUDY NEVERCAME BACK - EEGGEMAN Performed By: #### L 500.4050, L100.0500 ####[facility] [address] [place], [address] Potassium Normal 3.3-5.1 [facility] Comment on above: Result Comment: UTO X2 ATTEMPTS - PATIENT LEFT TO GO TO SLEEP STUDY NEVERCAME BACK - EEGGEMAN Performed By: #### L 500.4050, L100.0500 ####[facility] [address] [place], [address] T BILI Normal 0.00-1.30 [facility] Comment on above: Result Comment: UTO X2 ATTEMPTS - PATIENT LEFT TO GO TO SLEEP STUDY NEVERCAME BACK - EEGGEMAN Performed By: #### L 500.4050, L100.0500 ####[facility] [address] [place], [address] T PROT Normal 5.9-8.4 [facility] Comment on above: Result Comment: UTO X2 ATTEMPTS - PATIENT LEFT TO GO TO SLEEP STUDY NEVERCAME BACK - EEGGEMAN Performed By: #### L 500.4050, L100.0500 ####[facility] [address] [place], [address] Comprehensive Metabolic Profil Normal 133-145 [facility] Comment on above: Result Comment: UTO X2 ATTEMPTS - PATIENT LEFT TO GO TO SLEEP STUDY NEVERCAME BACK - EEGGEMAN Performed By: #### L 500.4050, L100.0500 ####[facility] [address] [place], [address] Neurology Visit Reporton Neurology Visit Report Normal [facility] Office Visit Reporton 2024 Office Visit Report Normal [facility] Pulmonary Visit Reporton Pulmonary Visit Report Normal [facility] RUBI w/ Reflex Mult Confirmon 09-27-2024 ANTI-DNA (DS)AB TNP Normal [facility] Comment on above: Performed By: #### L 101.9900, L505.7010, L3100.5450, L500.2500, L100.0100, L501.6710 ####[facility] [address] [place], [address] ANTI-SS-A TNP Normal [facility] Comment on above: Performed By: #### L 101.9900, L505.7010, L3100.5450, L500.2500, L100.0100, L501.6710 ####[facility] [address] [place], [address] ANTI-SS-B TNP Normal [facility] Comment on above: Performed By: #### L 101.9900, L505.7010, L3100.5450, L500.2500, L100.0100, L501.6710 ####[facility] [address] [place], [address] Absolute lymphocyte countOrd ered By: Mayda Garcia on 09-22-2024 Lymphocytes Auto (Unsp spec) [#/Vol] 1.43 10*3/uL 0.83-4.51 [facility] Anion gap in Serum or Plasma Ordered By: Mayda Garcia on 09-22-2024 Anion gap [Moles/Vol] 11 mmol/L 5-15 [facility] Automated lymphocyte count a s percentage of total leukocytesOrdered By: Mayda Garcia on 09-22-2024 Lymphocytes/100 WBC Auto (Unsp spec) 33.1 % 19-41 [facility] BUN/creatinine ratioOrdered By: Mayda Garcia on 09-22-2024 Urea nitrogen/Creatinine [Mass ratio] 26.3 mg/mg High 10- [facility] Basic Metabolic Profile (BMP )on 09-22-2024 BUN/CRE 26.3 RATIO High - [facility] Comment on above: Performed By: #### L 101.9900, L505.7010, L3100.5450, L500.2500, L100.0100, L501.6710 ####[facility] [address] [place], [address] Calcium [Mass/Vol] 8.4 mg/dL Normal 7.6-11.0 [facility] Comment on above: Performed By: #### L 101.9900, L505.7010, L3100.5450, L500.2500, L100.0100, L501.6710 ####[facility] [address] [place], [address] Chloride [Moles/Vol] 108 mmol/L Normal 98-108 [facility] Comment on above: Performed By: #### L 101.9900, L505.7010, L3100.5450, L500.2500, L100.0100, L501.6710 ####[facility] [address] [place], [address] CO2 [Moles/Vol] 21.6 mmol/L Normal 21.0-32.0 [facility] Comment on above: Performed By: #### L 101.9900, L505.7010, L3100.5450, L500.2500, L100.0100, L501.6710 ####[facility] [address] [place], [address] Creatinine [Mass/Vol] 0.86 mg/dL Normal 0.70-1.20 [facility] Comment on above: Performed By: #### L 101.9900, L505.7010, L3100.5450, L500.2500, L100.0100, L501.6710 ####[facility] [address] [place], [address] GAP 11 Normal 5-15 [facility] Comment on above: Performed By: #### L 101.9900, L505.7010, L3100.5450, L500.2500, L100.0100, L501.6710 ####[facility] [address] [place], [address] GFR/1.73 sq M.predicted among non-blacks MDRD (S/P/Bld) [Vol rate/Area] 72 mL/min/{1.73_m2} Normal >60 [facility] Comment on above: Result Comment: mL/m in/1.73m2 CKD-EPI Creatinine Equation (2020) Performed By: #### L 101.9900, L505.7010, L3100.5450, L500.2500, L100.0100, L501.6710 ####[facility] [address] [place], [address] Glucose [Mass/Vol] 105 mg/dL High 70-99 [facility] Comment on above: Performed By: #### L 101.9900, L505.7010, L3100.5450, L500.2500, L100.0100, L501.6710 ####[facility] [address] [place], [address] Potassium [Moles/Vol] 4.1 mmol/L Normal 3.3-5.1 [facility] Comment on above: Performed By: #### L 101.9900, L505.7010, L3100.5450, L500.2500, L100.0100, L501.6710 ####[facility] [address] [place], [address] Sodium [Moles/Vol] 140 mmol/L Normal 133-145 [facility] Comment on above: Performed By: #### L 101.9900, L505.7010, L3100.5450, L500.2500, L100.0100, L501.6710 ####[facility] [address] [place], [address] Urea nitrogen [Mass/Vol] 23 mg/dL High 4-19 [facility] Comment on above: Performed By: #### L 101.9900, L505.7010, L3100.5450, L500.2500, L100.0100, L501.6710 ####[facility] [address] [place], [place], [address] Basophil percentageOrdered B y: Mayda Garcia on 09-22-2024 Basophils/100 WBC (Bld) 0.7 % 0-1 [facility] Bilirubin directOrdered By: Mikhail Esposito on 09-22-2024 Bilirubin.direct [Mass/Vol] 0.15 mg/dL 0.00-0.30 [facility] Bilirubin, totalOrdered By: Mikhail Esposito on 09-22-2024 Bilirubin [Mass/Vol] 0.33 mg/dL 0.00-1.30 [facility] CBC W/Diff, Automatedon 09-02 Absolute Lymph 1.43 X10 3/uL Normal 0.83-4.51 [facility] Comment on above: Performed By: #### L 101.9900, L505.7010, L3100.5450, L500.2500, L100.0100, L501.6710 ####[facility] [address] [place], [address] Absolute Neut 2.4 X10 3/uL Normal 2.0-7.7 [facility] Comment on above: Performed By: #### L 101.9900, L505.7010, L3100.5450, L500.2500, L100.0100, L501.6710 ####[facility] [address] [place], [address] Basophils/100 WBC (Bld) 0.7 % Normal 0-1 [facility] Comment on above: Performed By: #### L 101.9900, L505.7010, L3100.5450, L500.2500, L100.0100, L501.6710 ####[facility] [address] [place], [address] Eosinophils/100 WBC (Bld) 2.3 % Normal 0-5 [facility] Comment on above: Performed By: #### L 101.9900, L505.7010, L3100.5450, L500.2500, L100.0100, L501.6710 ####[facility] [address] [place], [address] Erythrocyte distribution width (RBC) [Ratio] 13.9 % Normal 11.6-14.6 [facility] Comment on above: Performed By: #### L 101.9900, L505.7010, L3100.5450, L500.2500, L100.0100, L501.6710 ####[facility] [address] [place], [address] Hematocrit (Bld) [Volume fraction] 33.7 % Low 37-47 [facility] Comment on above: Performed By: #### L 101.9900, L505.7010, L3100.5450, L500.2500, L100.0100, L501.6710 ####[facility] [address] [place], [address] Hemoglobin (Bld) [Mass/Vol] 11.2 g/dL Low 12.0-15.0 [facility] Comment on above: Performed By: #### L 101.9900, L505.7010, L3100.5450, L500.2500, L100.0100, L501.6710 ####[facility] [address] [place], [address] IG% 0.500 Normal 0.0-0.9 [facility] Comment on above: Result Comment: IG% - Immature Granulocytes (promyelocytes, myelocytes andmetamyelocytes) > 1% indicates that a LEFT SHIFT is Present. Performed By: #### L 101.9900, L505.7010, L3100.5450, L500.2500, L100.0100, L501.6710 ####[facility] [address] [place], [address] Lymphocytes/100 WBC (Bld) 33.1 % Normal 19-41 [facility] Comment on above: Performed By: #### L 101.9900, L505.7010, L3100.5450, L500.2500, L100.0100, L501.6710 ####[facility] [address] [place], [address] MCH (RBC) [Entitic mass] 32.5 pg High 27.0-32.0 [facility] Comment on above: Performed By: #### L 101.9900, L505.7010, L3100.5450, L500.2500, L100.0100, L501.6710 ####[facility] [address] [place], [address] MCHC (RBC) [Mass/Vol] 33.2 g/dL Normal 32-36 [facility] Comment on above: Performed By: #### L 101.9900, L505.7010, L3100.5450, L500.2500, L100.0100, L501.6710 ####[facility] [address] [place], [address] MCV (RBC) [Entitic vol] 97.7 fL Normal 81-99 [facility] Comment on above: Performed By: #### L 101.9900, L505.7010, L3100.5450, L500.2500, L100.0100, L501.6710 ####[facility] [address] [place], [address] Monocytes/100 WBC (Bld) 8.1 % Normal 0-10 [facility] Comment on above: Performed By: #### L 101.9900, L505.7010, L3100.5450, L500.2500, L100.0100, L501.6710 ####[facility] [address] [place], [address] Neutrophils/100 WBC (Bld) 55.3 % Normal 47-70 [facility] Comment on above: Performed By: #### L 101.9900, L505.7010, L3100.5450, L500.2500, L100.0100, L501.6710 ####[facility] [address] [place], [address] Nucleated RBC (Bld) [#/Vol] 0 10*3/uL Normal 0-5 [facility] Comment on above: Performed By: #### L 101.9900, L505.7010, L3100.5450, L500.2500, L100.0100, L501.6710 ####[facility] [address] [place], [address] Platelet mean volume (Bld) [Entitic vol] 12.2 fL High 6.2-12.0 [facility] Comment on above: Performed By: #### L 101.9900, L505.7010, L3100.5450, L500.2500, L100.0100, L501.6710 ####[facility] [address] [place], [address] Platelets (Bld) [#/Vol] 155 10*3/uL Normal 150-450 [facility] Comment on above: Performed By: #### L 101.9900, L505.7010, L3100.5450, L500.2500, L100.0100, L501.6710 ####[facility] [address] [place], [address] RBC (Bld) [#/Vol] 3.45 10*6/uL Low 4.2-5.4 [facility] Comment on above: Performed By: #### L 101.9900, L505.7010, L3100.5450, L500.2500, L100.0100, L501.6710 ####[facility] [address] [place], [address] RDW SD 49.9 fl High 35.1-43.9 [facility] Comment on above: Performed By: #### L 101.9900, L505.7010, L3100.5450, L500.2500, L100.0100, L501.6710 ####[facility] [address] [place], [address] WBC (Bld) [#/Vol] 4.3 10*3/uL Low 4.4-11.0 [facility] Comment on above: Performed By: #### L 101.9900, L505.7010, L3100.5450, L500.2500, L100.0100, L501.6710 ####[facility] [address] [place], [address] CRPon 09-22-2024 C-REACTIVE PROT 3.46 mg/L High 0.0-3.0 [facility] Comment on above: Performed By: #### L 101.9900, L505.7010, L3100.5450, L500.2500, L100.0100, L501.6710 ####[facility] [address] [place], [place], [id number] Calculated very low density lipoprotein (VLDL) cholesterol measurementOrdered By: Mikhail Apodacaiter on 09-22-2024 Calculated very low density lipoprotein (VLDL) cholesterol measurement 14 mg/dL 5-40 [facility] Carbon dioxide, total [Moles /volume] in Central venous bloodOrdered By: Mayda Garcia on 09-22-2024 CO2 [Moles/Vol] 21.6 mmol/L 21.0-32.0 [facility] Chloride assayOrdered By: Jia Garcia on 09-22-2024 Chloride [Moles/Vol] 108 mmol/L 98-108 [facility] Eosinophil percentageOrdered By: Mayda Garcia on 09-22-2024 Eosinophils/100 WBC (Bld) 2.3 % 0-5 [facility] Erythrocyte Sed Rateon 09-22 SED RATE 5 mm/hr Normal 0-30 [facility] Comment on above: Performed By: #### L 101.9900, L505.7010, L3100.5450, L500.2500, L100.0100, L501.6710 ####[facility] [address] [place], [place], [id number] Erythrocyte distribution wid th ratioOrdered By: Mayda Garcia on 09-22-2024 Erythrocyte distribution width (RBC) [Ratio] 13.9 % 11.6-14.6 [facility] Erythrocyte distribution wid th standard deviationOrdered By: Mayda Garcia on 09-22-2024 Erythrocyte distribution width (RBC) [Ratio] 49.9 fl High 35.1-43.9 [facility] Erythrocyte sedimentation ra teOrdered By: Mayda Garcia on 09-22-2024 ESR (Bld) [Velocity] 5 mm/h 0-30 [facility] Glomerular filtration rate ( GFR) estimation/1.73 sq m using serum, plasma, or whole bOrdered By: Mayda Garcia on 09-22-2024 GFR/1.73 sq M.predicted among non-blacks MDRD (S/P/Bld) [Vol rate/Area] 72 mL/min/{1.73_m2} >60 [facility] Hematocrit Auto (Bld) [Volum e fraction]Ordered By: Mayda Garcia on 09-22-2024 Hematocrit (Bld) [Volume fraction] 33.7 % Low 37-47 [facility] Hemoglobin measurementOrdere d By: Mayda Garcia on 09-22-2024 Hemoglobin (Bld) [Mass/Vol] 11.2 g/dL Low 12.0-15.0 [facility] Immature granulocytes/100 WB C Auto (Bld)Ordered By: Mayda Garcia on 09-22-2024 Immature granulocytes/100 WBC (Bld) 0.500 % 0.0-0.9 [facility] LDL calc ser/plasOrdered By: Mikhail Esposito on 09-22-2024 Cholesterol in LDL [Mass/Vol] 135 mg/dL [facility] Lipid Profileon 09-22-2024 CHOL:HDL 3.58 Normal [facility] Comment on above: Performed By: #### L 500.3400, L500.4100 ####[facility] [address] [place], [place], [id number] Cholesterol [Mass/Vol] 206 mg/dL High <=200 [facility] Comment on above: Result Comment: Chol esterol level, Desirable <200 mg/dLBorderline high cholesterol 200-239 mg/dLHigh cholesterol >=240 mg/dLRecommendations of the NCEP Adult Treatment Panel for thefollowing risk-cutoff thresholds for the [place] [facility] centerulation. Performed By: #### L 500.3400, L500.4100 ####[facility] [address] [place], [address] Cholesterol in HDL [Mass/Vol] 58 mg/dL Normal [facility] Comment on above: Result Comment: [facility] onal Cholesterol Education Program (NCEP) guidelines:<40 mg/dL: Low HDL-cholesterol (major risk factor for CHD)>= 60 mg/dL: High HDL-cholesterol (negative risk factor forCHD)HDL-cholesterol is affected by a number of factors, e.g.smoking, exercise, hormones, sex and age. Performed By: #### L 500.3400, L500.4100 ####[facility] [address] [place], [address] Cholesterol in LDL [Mass/Vol] 135 mg/dL Normal [facility] Comment on above: Result Comment: Bord zpkmgp=625-083 mg/dL Higher Ucic=098 mg/dL or greater Performed By: #### L 500.3400, L500.4100 ####[facility] [address] [place], [address] Cholesterol in VLDL [Mass/Vol] 14 mg/dL Normal 5-40 [facility] Comment on above: Performed By: #### L 500.3400, L500.4100 ####[facility] [address] [place], [address] Triglyceride [Mass/Vol] 69 mg/dL Normal [facility] Comment on above: Result Comment: The drugs N-Acetylcysteine and Metamizole may falselydepress this assay.Normal range: <150 mg/dLBorderline High: 150-199 mg/dLHigh: 200-499 mg/dLVery High: >500 mg/dL Performed By: #### L 500.3400, L500.4100 ####[facility] [address] [place], [address] Liver Profileon 09-22-2024 Albumin [Mass/Vol] 3.8 g/dL Normal 3.4-4.8 [facility] Comment on above: Performed By: #### L 500.3400, L500.4100 ####[facility] [address] [place], [address] ALK PHOS 71 U/L Normal 35-104 [facility] Comment on above: Performed By: #### L 500.3400, L500.4100 ####[facility] [address] [place], [address] ALT [Catalytic activity/Vol] 19 U/L Normal <=34 [facility] Comment on above: Performed By: #### L 500.3400, L500.4100 ####[facility] [address] [place], [address] AST [Catalytic activity/Vol] 21 U/L Normal <=31 [facility] Comment on above: Performed By: #### L 500.3400, L500.4100 ####[facility] [address] [place], [address] Bilirubin [Mass/Vol] 0.33 mg/dL Normal 0.00-1.30 [facility] Comment on above: Performed By: #### L 500.3400, L500.4100 ####[facility] [address] [place], [address] Bilirubin.direct [Mass/Vol] 0.15 mg/dL Normal 0.00-0.30 [facility] Comment on above: Performed By: #### L 500.3400, L500.4100 ####[facility] [address] [place], [address] Globulin (S) [Mass/Vol] 2.7 g/dL Normal 2.2-4.2 [facility] Comment on above: Performed By: #### L 500.3400, L500.4100 ####[facility] [address] [place], [address] T PROT 6.5 g/dL Normal 5.9-8.4 [facility] Comment on above: Performed By: #### L 500.3400, L500.4100 ####[facility] [address] [place], [address] MCV (mean corpuscular volume ) determinationOrdered By: Mayda Garcia on 09-22-2024 MCV (RBC) [Entitic vol] 97.7 fL 81-99 [facility] Mean corpuscular hemoglobin (MCH) determinationOrdered By: Mayda Garcia on 09-22-2024 MCH (RBC) [Entitic mass] 32.5 pg High 27.0-32.0 [facility] Monocyte percentageOrdered B y: Mayda Garcia on 09-22-2024 Monocytes/100 WBC (Bld) 8.1 % 0-10 [facility] Neutrophil percentageOrdered By: Jiamichellerosemary Shamartoyarobson on 09-22-2024 Neutrophils/100 WBC (Bld) 55.3 % 47-70 [facility] No Panel InformationOrdered By: Mikhail Apodacaiter on 09-22-2024 21 U/L <32 [facility] Platelet countOrdered By: Jia edconsuelo Garcia on 09-22-2024 Platelets (Bld) [#/Vol] 155 10*3/uL 150-450 [facility] Potassium measurement (mass/ volume)Ordered By: Mayda Garcia on 09-22-2024 Potassium (Unsp spec) [Mass/Vol] 4.1 mmol/L 3.3-5.1 [facility] RBC Auto (Bld) [#/Vol]Ordere d By: Mayda Garcia on 09-22-2024 RBC (Bld) [#/Vol] 3.45 10*6/uL Low 4.2-5.4 [facility] Rheumatoid Factoron 09-23-19 25 RHEUMATOID FAC < 10.0 Normal <15 [facility] Comment on above: Performed By: #### L 101.9900, L505.7010, L3100.5450, L500.2500, L100.0100, L501.6710 ####[facility] [address] [place], [address] Serum DNA double strand anti body assay (units/volume)Ordered By: Mayda Garcia on 09-22-2024 DNA double strand Ab Qn (S) TNP [facility] Serum Scl-70 antibody assay (units/volume)Ordered By: Mayda Garcia on 09-22-2024 SCL-70 extractable nuclear Ab Qn (S) TNP [facility] Serum creatinine measurement (mass/volume)Ordered By: Mayda Garcia on 09-22-2024 Creatinine [Mass/Vol] 0.86 mg/dL 0.70-1.20 [facility] Serum globulin measurementOr dered By: Mikhail Esposito on 09-22-2024 Globulin (S) [Mass/Vol] 2.7 g/dL 2.2-4.2 [facility] Serum glucose measurement (m ass/volume)Ordered By: Mayda Gracia on 09-22-2024 Glucose [Mass/Vol] 105 mg/dL High 70-99 [facility] Serum or plasma C reactive p rotein measurement (mass/volume)Ordered By: Mayda Garcia on 09-22-2024 CRP [Mass/Vol] 3.46 mg/L High 0.0-3.0 [facility] Serum or plasma alanine carvalho otransferase (ALT) measurementOrdered By: Mikhail Esposito on 09-22-2024 ALT [Catalytic activity/Vol] 19 U/L <35 [facility] Serum or plasma albumin loretta urement (mass/volume)Ordered By: Mikhail Esposito on 09-22-2024 Albumin [Mass/Vol] 3.8 g/dL 3.4-4.8 [facility] Serum or plasma alkaline dima sphatase measurementOrdered By: Mikhail Esposito on 09-22-2024 ALP [Catalytic activity/Vol] 71 U/L 35-104 [facility] Serum or plasma calcium loretta urement (mass/volume)Ordered By: Mayda Garcia on 09-22-2024 Calcium [Mass/Vol] 8.4 mg/dL 7.6-11.0 [facility] Serum or plasma cholesterol in HDL measurement (mass/volume)Ordered By: Mikhail Esposito on 09-22-2024 Cholesterol in HDL [Mass/Vol] 58 mg/dL >40 [facility] Serum or plasma cholesterol measurement (mass/volume)Ordered By: Mikhail Esposito on 09-22-2024 Cholesterol [Mass/Vol] 206 mg/dL High <201 [facility] Serum or plasma urea nitroge n measurement (mass/volume)Ordered By: Mayda Garcia on 09-22-2024 Urea nitrogen [Mass/Vol] 23 mg/dL High - [facility] Serum rheumatoid factor dete ctionOrdered By: Mayda Garcia on 09-22-2024 Rheumatoid factor Ql (S) < 10.0 IU/mL <15 [facility] Sodium levelOrdered By: Jiamichelle rosemary Shamartoyarobson on 09-22-2024 Sodium [Moles/Vol] 140 mmol/L 133-145 [facility] Total proteinOrdered By: Fer Esposito on 09-22-2024 Protein [Mass/Vol] 6.5 g/dL 5.9-8.4 [facility] White blood cell (WBC) count Ordered By: Mayda Garcia on 09-22-2024 WBC (Bld) [#/Vol] 4.3 10*3/uL Low 4.4-11.0 [facility] Internal Medicine Office Vis iton 09-21-2024 Internal Medicine Office Visit Normal [facility] Cardiology Visit Reporton Cardiology Visit Report Normal [facility] 12 Lead EKGon 09-16-2024 12 Lead EKG Normal [facility] Absolute lymphocyte countOrd ered By: Azam Frey on 09-16-2024 Lymphocytes Auto (Unsp spec) [#/Vol] 1.40 10*3/uL 0.83-4.51 [facility] Anion gap in Serum or Plasma Ordered By: Azam Frey on 09-16-2024 Anion gap [Moles/Vol] 10 mmol/L 5-15 [facility] Automated lymphocyte count a s percentage of total leukocytesOrdered By: Azam Frey on 09-16-2024 Lymphocytes/100 WBC Auto (Unsp spec) 33.3 % 19-41 [facility] BUN/creatinine ratioOrdered By: Azam Frey on 09-16-2024 Urea nitrogen/Creatinine [Mass ratio] 28.6 mg/mg High 02-20 [facility] Basic Metabolic Profile (BMP )on 09-16-2024 BUN/CRE 28.6 RATIO High 02-20 [facility] Comment on above: Performed By: #### L 503.7505, L500.2500, L501.4021, L100.0100 ####[facility] [address] [place], [address] Calcium [Mass/Vol] 8.7 mg/dL Normal 7.6-11.0 [facility] Comment on above: Performed By: #### L 503.7505, L500.2500, L501.4021, L100.0100 ####[facility] [address] [place], [address] Chloride [Moles/Vol] 109 mmol/L High 98-108 [facility] Comment on above: Performed By: #### L 503.7505, L500.2500, L501.4021, L100.0100 ####[facility] [address] [place], [address] CO2 [Moles/Vol] 23.0 mmol/L Normal 21.0-32.0 [facility] Comment on above: Performed By: #### L 503.7505, L500.2500, L501.4021, L100.0100 ####[facility] [address] [place], [address] Creatinine [Mass/Vol] 0.77 mg/dL Normal 0.70-1.20 [facility] Comment on above: Performed By: #### L 503.7505, L500.2500, L501.4021, L100.0100 ####[facility] [address] [place], [address] GAP 10 Normal 5-15 [facility] Comment on above: Performed By: #### L 503.7505, L500.2500, L501.4021, L100.0100 ####[facility] [address] [place], [address] GFR/1.73 sq M.predicted among non-blacks MDRD (S/P/Bld) [Vol rate/Area] 82 mL/min/{1.73_m2} Normal >60 [facility] Comment on above: Result Comment: mL/m in/1.73m2 CKD-EPI Creatinine Equation (2020) Performed By: #### L 503.7505, L500.2500, L501.4021, L100.0100 ####[facility] [address] [place], [address] Glucose [Mass/Vol] 76 mg/dL Normal 70-99 [facility] Comment on above: Performed By: #### L 503.7505, L500.2500, L501.4021, L100.0100 ####[facility] [address] [place], [address] Potassium [Moles/Vol] 3.7 mmol/L Normal 3.3-5.1 [facility] Comment on above: Performed By: #### L 503.7505, L500.2500, L501.4021, L100.0100 ####[facility] [address] [place], [address] Sodium [Moles/Vol] 142 mmol/L Normal 133-145 [facility] Comment on above: Performed By: #### L 503.7505, L500.2500, L501.4021, L100.0100 ####[facility] [address] [place], [address] Urea nitrogen [Mass/Vol] 22 mg/dL High 4-19 [facility] Comment on above: Performed By: #### L 503.7505, L500.2500, L501.4021, L100.0100 ####[facility] [address] [place], [address] Basophil percentageOrdered B y: Azam Frey on 09-16-2024 Basophils/100 WBC (Bld) 0.2 % 0-1 [facility] CBC W/Diff, Automatedon 09-01 Absolute Lymph 1.40 X10 3/uL Normal 0.83-4.51 [facility] Comment on above: Performed By: #### L 503.7505, L500.2500, L501.4021, L100.0100 ####[facility] [address] [place], [address] Absolute Neut 2.3 X10 3/uL Normal 2.0-7.7 [facility] Comment on above: Performed By: #### L 503.7505, L500.2500, L501.4021, L100.0100 ####[facility] [address] [place], [address] Basophils/100 WBC (Bld) 0.2 % Normal 0-1 [facility] Comment on above: Performed By: #### L 503.7505, L500.2500, L501.4021, L100.0100 ####[facility] [address] [place], [address] Eosinophils/100 WBC (Bld) 2.4 % Normal 0-5 [facility] Comment on above: Performed By: #### L 503.7505, L500.2500, L501.4021, L100.0100 ####[facility] [address] [place], [address] Erythrocyte distribution width (RBC) [Ratio] 13.8 % Normal 11.6-14.6 [facility] Comment on above: Performed By: #### L 503.7505, L500.2500, L501.4021, L100.0100 ####[facility] [address] [place], [address] Hematocrit (Bld) [Volume fraction] 25.8 % Low 37-47 [facility] Comment on above: Performed By: #### L 503.7505, L500.2500, L501.4021, L100.0100 ####[facility] [address] [place], [address] Hemoglobin (Bld) [Mass/Vol] 8.6 g/dL Low 12.0-15.0 [facility] Comment on above: Performed By: #### L 503.7505, L500.2500, L501.4021, L100.0100 ####[facility] [address] [place], [address] IG% 0.500 Normal 0.0-0.9 [facility] Comment on above: Result Comment: IG% - Immature Granulocytes (promyelocytes, myelocytes andmetamyelocytes) > 1% indicates that a LEFT SHIFT is Present. Performed By: #### L 503.7505, L500.2500, L501.4021, L100.0100 ####[facility] [address] [place], [address] Lymphocytes/100 WBC (Bld) 33.3 % Normal 19-41 [facility] Comment on above: Performed By: #### L 503.7505, L500.2500, L501.4021, L100.0100 ####[facility] [address] [place], [address] MCH (RBC) [Entitic mass] 32.5 pg High 27.0-32.0 [facility] Comment on above: Performed By: #### L 503.7505, L500.2500, L501.4021, L100.0100 ####[facility] [address] [place], [address] MCHC (RBC) [Mass/Vol] 33.3 g/dL Normal 32-36 [facility] Comment on above: Performed By: #### L 503.7505, L500.2500, L501.4021, L100.0100 ####[facility] [address] [place], [address] MCV (RBC) [Entitic vol] 97.4 fL Normal 81-99 [facility] Comment on above: Performed By: #### L 503.7505, L500.2500, L501.4021, L100.0100 ####[facility] [address] [place], [address] Monocytes/100 WBC (Bld) 8.6 % Normal 0-10 [facility] Comment on above: Performed By: #### L 503.7505, L500.2500, L501.4021, L100.0100 ####[facility] [address] [place], [address] Neutrophils/100 WBC (Bld) 55.0 % Normal 47-70 [facility] Comment on above: Performed By: #### L 503.7505, L500.2500, L501.4021, L100.0100 ####[facility] [address] [place], [address] Nucleated RBC (Bld) [#/Vol] 0 10*3/uL Normal 0-5 [facility] Comment on above: Performed By: #### L 503.7505, L500.2500, L501.4021, L100.0100 ####[facility] [address] [place], [address] Platelet mean volume (Bld) [Entitic vol] 11.6 fL Normal 6.2-12.0 [facility] Comment on above: Performed By: #### L 503.7505, L500.2500, L501.4021, L100.0100 ####[facility] [address] [place], [address] Platelets (Bld) [#/Vol] 117 10*3/uL Low 150-450 [facility] Comment on above: Performed By: #### L 503.7505, L500.2500, L501.4021, L100.0100 ####[facility] [address] [place], [address] RBC (Bld) [#/Vol] 2.65 10*6/uL Low 4.2-5.4 [facility] Comment on above: Performed By: #### L 503.7505, L500.2500, L501.4021, L100.0100 ####[facility] [address] [place], [address] RDW SD 48.9 fl High 35.1-43.9 [facility] Comment on above: Performed By: #### L 503.7505, L500.2500, L501.4021, L100.0100 ####[facility] [address] [place], [address] WBC (Bld) [#/Vol] 4.2 10*3/uL Low 4.4-11.0 [facility] Comment on above: Performed By: #### L 503.7505, L500.2500, L501.4021, L100.0100 ####[facility] [address] [place], [address] Carbon dioxide, total [Moles /volume] in Central venous bloodOrdered By: Azam Frey on 09-16-2024 CO2 [Moles/Vol] 23.0 mmol/L 21.0-32.0 [facility] Chest 1 View (Portable)on Chest 1 View (Portable) Normal [facility] Chloride assayOrdered By: Hugh Frey on 09-16-2024 Chloride [Moles/Vol] 109 mmol/L High 98-108 [facility] Emergency Department Summary on 09-16-2024 Emergency Department Summary Normal [facility] Eosinophil percentageOrdered By: Azam Frey on 09-16-2024 Eosinophils/100 WBC (Bld) 2.4 % 0-5 [facility] Erythrocyte distribution wid th ratioOrdered By: Azam Frey on 09-16-2024 Erythrocyte distribution width (RBC) [Ratio] 13.8 % 11.6-14.6 [facility] Erythrocyte distribution wid th standard deviationOrdered By: Azam Frey on 09-16-2024 Erythrocyte distribution width (RBC) [Ratio] 48.9 fl High 35.1-43.9 [facility] Glomerular filtration rate ( GFR) estimation/1.73 sq m using serum, plasma, or whole bOrdered By: Azam Reynalise on 09-16-2024 GFR/1.73 sq M.predicted among non-blacks MDRD (S/P/Bld) [Vol rate/Area] 82 mL/min/{1.73_m2} >60 [facility] Hematocrit Auto (Bld) [Volum e fraction]Ordered By: Azam Frey on 09-16-2024 Hematocrit (Bld) [Volume fraction] 25.8 % Low 37-47 [facility] Hemoglobin measurementOrdere d By: Azam Maribelllise on 09-16-2024 Hemoglobin (Bld) [Mass/Vol] 8.6 g/dL Low 12.0-15.0 [facility] Immature granulocytes/100 WB C Auto (Bld)Ordered By: Azam Frey on 09-16-2024 Immature granulocytes/100 WBC (Bld) 0.500 % 0.0-0.9 [facility] L499.0042on 09-16-2024 Trop T High Sen 7 ng/L Normal <=14 [facility] Comment on above: Result Comment: Hemo lysis present, Results??could be affected.?? Performed By: #### L 499.0042 ####[facility] [address] [place], [address] L499.0043on 09-16-2024 Trop T High Sen Normal <=14 [facility] Comment on above: Result Comment: Canc elled via OM: Order cancelled - Patient discharged Performed By: #### L 499.0043 ####[facility] [address] [place], [address] L501.4021on 09-16-2024 Trop T High Sen 8 ng/L Normal <=14 [facility] Comment on above: Performed By: #### L 503.7505, L500.2500, L501.4021, L100.0100 ####[facility] [address] [place], [address] L503.7505on 09-16-2024 Natriuretic peptide B (Bld) [Mass/Vol] 239 pg/mL Normal <=900 [facility] Comment on above: Result Comment: Hear t Failure Unlikely: < 300 pg/mLHeart Failure Likely< 50 Years: > 450 pg/mL50-75 Years: > 900 pg/mL>75 Years: > 1800 pg/mL Performed By: #### L 503.7505, L500.2500, L501.4021, L100.0100 ####[facility] [address] [place], [address] MCV (mean corpuscular volume ) determinationOrdered By: Azam Frey on 09-16-2024 MCV (RBC) [Entitic vol] 97.4 fL 81-99 [facility] Mean corpuscular hemoglobin (MCH) determinationOrdered By: Azam Frey on 09-16-2024 MCH (RBC) [Entitic mass] 32.5 pg High 27.0-32.0 [facility] Monocyte percentageOrdered B y: Azam Frey on 09-16-2024 Monocytes/100 WBC (Bld) 8.6 % 0-10 [facility] Natriuretic peptide.B prohor thai N-Terminal [Mass/volume] in Serum or PlasmaOrdered By: Azam Frey on 09-16-2024 Natriuretic peptide.B prohormone N-Terminal [Mass/Vol] 239 pg/mL <900 [facility] Neutrophil percentageOrdered By: Azam Frey on 09-16-2024 Neutrophils/100 WBC (Bld) 55.0 % 47-70 [facility] Platelet countOrdered By: Hugh Frey on 09-16-2024 Platelets (Bld) [#/Vol] 117 10*3/uL Low 150-450 [facility] Potassium measurement (mass/ volume)Ordered By: Azam Frey on 09-16-2024 Potassium (Unsp spec) [Mass/Vol] 3.7 mmol/L 3.3-5.1 [facility] RBC Auto (Bld) [#/Vol]Ordere d By: Azam Frey on 09-16-2024 RBC (Bld) [#/Vol] 2.65 10*6/uL Low 4.2-5.4 [facility] Serum creatinine measurement (mass/volume)Ordered By: Azam Frey on 09-16-2024 Creatinine [Mass/Vol] 0.77 mg/dL 0.70-1.20 [facility] Serum glucose measurement (m ass/volume)Ordered By: Azam Frey on 09-16-2024 Glucose [Mass/Vol] 76 mg/dL 70-99 [facility] Serum or plasma calcium loretta urement (mass/volume)Ordered By: Azam Frey on 09-16-2024 Calcium [Mass/Vol] 8.7 mg/dL 7.6-11.0 [facility] Serum or plasma urea nitroge n measurement (mass/volume)Ordered By: Azam Frey on 09-16-2024 Urea nitrogen [Mass/Vol] 22 mg/dL High 4-19 [facility] Sodium levelOrdered By: Azam Frey on 09-16-2024 Sodium [Moles/Vol] 142 mmol/L 133-145 [facility] Stool Occult Blood iFOBon STOB Negative Normal [facility] Comment on above: Performed By: #### M 100.7900 ####[facility] [address] [place], [address] Stool gastrointestinal hemog lobin detection by immunologic methodOrdered By: Azam Frey on 09-16-2024 Lower GI hemoglobin IA Ql (Stl) [facility] Troponin T.cardiac [Mass/vol ume] in Serum or Plasma by High sensitivity methodOrdered By: Azam Frey on 09-16-2024 Troponin T.cardiac High sensitivity method [Mass/Vol] 7 ng/L <14 [facility] Troponin T.cardiac High sensitivity method [Mass/Vol] 8 ng/L <14 [facility] White blood cell (WBC) count Ordered By: Azam Frey on 09-16-2024 WBC (Bld) [#/Vol] 4.2 10*3/uL Low 4.4-11.0 [facility] Internal Medicine Office Vis iton 08-10-2024 Internal Medicine Office Visit Normal [facility] No Panel InformationOrdered By: Mayda Garcia on 08-10-2024 6.4 % High 4.2-6.3 [facility] Chest PA and Lateralon 07-15 Chest PA and Lateral Normal [facility] Emergency Department Summary on 07-15-2024 Emergency Department Summary Normal [facility] 12 Lead EKGon 07-14-2024 12 Lead EKG Normal [facility] Absolute lymphocyte countOrd ered By: Ulisses Chan on 07-14-2024 Lymphocytes Auto (Unsp spec) [#/Vol] 1.82 10*3/uL 0.83-4.51 [facility] Absolute neutrophil countOrd ered By: Ulisses Chan on 07-14-2024 Absolute neutrophil count 2.4 X10^3/uL 2.0-7.7 [facility] Anion gap [Moles/Vol]Ordered By: Ulisses Chan on 07-14-2024 Anion gap in Serum or Plasma 12 09-15 [facility] Anion gap in Serum or Plasma Ordered By: Ulisses Chan on 07-14-2024 Anion gap [Moles/Vol] 12 mmol/L 09-15 [facility] Automated lymphocyte count a s percentage of total leukocytesOrdered By: Ulisses Chan on 07-14-2024 Lymphocytes/100 WBC Auto (Unsp spec) 38.7 % 19-41 [facility] BUN/creatinine ratioOrdered By: Ulisses Chan on 07-14-2024 Urea nitrogen/Creatinine [Mass ratio] 21.2 mg/mg High 10- [facility] BUN/creatinine ratio 21.2 RATIO High 10-20 [facility] Basic Metabolic Profile (BMP )on 07-14-2024 BUN/CRE 21.2 RATIO High - [facility] Comment on above: Performed By: #### L 501.4021, L100.0100, L500.2500 ####[facility] [address] [place], [address] Calcium [Mass/Vol] 9.4 mg/dL Normal 7.6-11.0 [facility] Comment on above: Performed By: #### L 501.4021, L100.0100, L500.2500 ####[facility] [address] [place], [address] Chloride [Moles/Vol] 106 mmol/L Normal 98-108 [facility] Comment on above: Performed By: #### L 501.4021, L100.0100, L500.2500 ####[facility] [address] [place], [address] CO2 [Moles/Vol] 23.7 mmol/L Normal 21.0-32.0 [facility] Comment on above: Performed By: #### L 501.4021, L100.0100, L500.2500 ####[facility] [address] [place], [address] Creatinine [Mass/Vol] 0.94 mg/dL Normal 0.70-1.20 [facility] Comment on above: Performed By: #### L 501.4021, L100.0100, L500.2500 ####[facility] [address] [place], [address] ECRCL 52.46 ml/min Normal 50-250 [facility] Comment on above: Performed By: #### L 501.4021, L100.0100, L500.2500 ####[facility] [address] [place], [address] GAP 12 Normal 5-15 [facility] Comment on above: Performed By: #### L 501.4021, L100.0100, L500.2500 ####[facility] [address] [place], [address] GFR/1.73 sq M.predicted among non-blacks MDRD (S/P/Bld) [Vol rate/Area] 65 mL/min/{1.73_m2} Normal >60 [facility] Comment on above: Result Comment: mL/m in/1.73m2 CKD-EPI Creatinine Equation (2020) Performed By: #### L 501.4021, L100.0100, L500.2500 ####[facility] [address] [place], [address] Glucose [Mass/Vol] 141 mg/dL High 70-99 [facility] Comment on above: Performed By: #### L 501.4021, L100.0100, L500.2500 ####[facility] [address] [place], [address] Potassium [Moles/Vol] 3.9 mmol/L Normal 3.3-5.1 [facility] Comment on above: Performed By: #### L 501.4021, L100.0100, L500.2500 ####[facility] [address] [place], [address] Sodium [Moles/Vol] 142 mmol/L Normal 133-145 [facility] Comment on above: Performed By: #### L 501.4021, L100.0100, L500.2500 ####[facility] [address] [place], [address] Urea nitrogen [Mass/Vol] 20 mg/dL High 4-19 [facility] Comment on above: Performed By: #### L 501.4021, L100.0100, L500.2500 ####[facility] [address] [place], [address] Basophil percentageOrdered B y: Ulisses Le on 07-14-2024 Basophils/100 WBC (Bld) 0.2 % 0-1 [facility] Basophil percentage 0.2 % 0-1 [facility] CBC W/Diff, Automatedon 07-02 Absolute Lymph 1.82 X10 3/uL Normal 0.83-4.51 [facility] Comment on above: Performed By: #### L 501.4021, L100.0100, L500.2500 ####[facility] [address] [place], [address] Absolute Neut 2.4 X10 3/uL Normal 2.0-7.7 [facility] Comment on above: Performed By: #### L 501.4021, L100.0100, L500.2500 ####[facility] [address] [place], [address] Basophils/100 WBC (Bld) 0.2 % Normal 0-1 [facility] Comment on above: Performed By: #### L 501.4021, L100.0100, L500.2500 ####[facility] [address] [place], [address] Eosinophils/100 WBC (Bld) 1.7 % Normal 0-5 [facility] Comment on above: Performed By: #### L 501.4021, L100.0100, L500.2500 ####[facility] [address] [place], [address] Erythrocyte distribution width (RBC) [Ratio] 13.2 % Normal 11.6-14.6 [facility] Comment on above: Performed By: #### L 501.4021, L100.0100, L500.2500 ####[facility] [address] [place], [address] Hematocrit (Bld) [Volume fraction] 35.2 % Low 37-47 [facility] Comment on above: Performed By: #### L 501.4021, L100.0100, L500.2500 ####[facility] [address] [place], [address] Hemoglobin (Bld) [Mass/Vol] 11.8 g/dL Low 12.0-15.0 [facility] Comment on above: Performed By: #### L 501.4021, L100.0100, L500.2500 ####[facility] [address] [place], [address] IG% 0.200 Normal 0.0-0.9 [facility] Comment on above: Result Comment: IG% - Immature Granulocytes (promyelocytes, myelocytes andmetamyelocytes) > 1% indicates that a LEFT SHIFT is Present. Performed By: #### L 501.4021, L100.0100, L500.2500 ####[facility] [address] [place], [address] Lymphocytes/100 WBC (Bld) 38.7 % Normal 19-41 [facility] Comment on above: Performed By: #### L 501.4021, L100.0100, L500.2500 ####[facility] [address] [place], [address] MCH (RBC) [Entitic mass] 32.3 pg High 27.0-32.0 [facility] Comment on above: Performed By: #### L 501.4021, L100.0100, L500.2500 ####[facility] [address] [place], [address] MCHC (RBC) [Mass/Vol] 33.5 g/dL Normal 32-36 [facility] Comment on above: Performed By: #### L 501.4021, L100.0100, L500.2500 ####[facility] [address] [place], [address] MCV (RBC) [Entitic vol] 96.4 fL Normal 81-99 [facility] Comment on above: Performed By: #### L 501.4021, L100.0100, L500.2500 ####[facility] [address] [place], [address] Monocytes/100 WBC (Bld) 8.1 % Normal 0-10 [facility] Comment on above: Performed By: #### L 501.4021, L100.0100, L500.2500 ####[facility] [address] [place], [address] Neutrophils/100 WBC (Bld) 51.1 % Normal 47-70 [facility] Comment on above: Performed By: #### L 501.4021, L100.0100, L500.2500 ####[facility] [address] [place], [address] Nucleated RBC (Bld) [#/Vol] 0 10*3/uL Normal 0-5 [facility] Comment on above: Performed By: #### L 501.4021, L100.0100, L500.2500 ####[facility] [address] [place], [address] Platelet mean volume (Bld) [Entitic vol] 10.8 fL Normal 6.2-12.0 [facility] Comment on above: Performed By: #### L 501.4021, L100.0100, L500.2500 ####[facility] [address] [place], [address] Platelets (Bld) [#/Vol] 208 10*3/uL Normal 150-450 [facility] Comment on above: Performed By: #### L 501.4021, L100.0100, L500.2500 ####[facility] [address] [place], [address] RBC (Bld) [#/Vol] 3.65 10*6/uL Low 4.2-5.4 [facility] Comment on above: Performed By: #### L 501.4021, L100.0100, L500.2500 ####[facility] [address] [place], [address] RDW SD 47.2 fl High 35.1-43.9 [facility] Comment on above: Performed By: #### L 501.4021, L100.0100, L500.2500 ####[facility] [address] [place], [address] WBC (Bld) [#/Vol] 4.7 10*3/uL Normal 4.4-11.0 [facility] Comment on above: Performed By: #### L 501.4021, L100.0100, L500.2500 ####[facility] [address] [place], [address] Calcium [Mass/Vol]Ordered By : Ulisses Chan on 07-14-2024 Serum or plasma calcium measurement (mass/volume) 9.4 mg/dL 7.6-11.0 [facility] Carbon dioxide, total [Moles /volume] in Central venous bloodOrdered By: Ulisses Chan on 07-14-2024 CO2 [Moles/Vol] 23.7 mmol/L 21.0-32.0 [facility] Carbon dioxide, total [Moles/volume] in Central venous blood 23.7 mmol/L 21.0-32.0 [facility] Chest without Contraston Chest without Contrast Normal [facility] Chloride assayOrdered By: Margarito Chan on 07-14-2024 Chloride [Moles/Vol] 106 mmol/L 98-108 [facility] Chloride assay 106 mmol/L 98-108 [facility] Creatinine [Mass/Vol]Ordered By: Ulisses Chan on 07-14-2024 Serum creatinine measurement (mass/volume) 0.94 mg/dL 0.70-1.20 [facility] Emergency Department Summary on 07-14-2024 Emergency Department Summary Normal [facility] Eosinophil percentageOrdered By: Ulisses Chan on 07-14-2024 Eosinophils/100 WBC (Bld) 1.7 % 0-5 [facility] Eosinophil percentage 1.7 % 0-5 [facility] Erythrocyte distribution wid th (RBC) [Entitic vol]Ordered By: Ulisses Chan on 07-14-2024 Erythrocyte distribution width standard deviation 47.2 fl High 35.1-43.9 [facility] Erythrocyte distribution wid th (RBC) [Ratio]Ordered By: Ulisses Chan on 07-14-2024 Erythrocyte distribution width ratio 13.2 % 11.6-14.6 [facility] Erythrocyte distribution wid th ratioOrdered By: Ulisses Chan on 07-14-2024 Erythrocyte distribution width (RBC) [Ratio] 13.2 % 11.6-14.6 [facility] Erythrocyte distribution wid th standard deviationOrdered By: Ulisses Chan on 07-14-2024 Erythrocyte distribution width (RBC) [Ratio] 47.2 fl High 35.1-43.9 [facility] Estimation of creatinine carl aranceOrdered By: Ulisses Chan on 07-14-2024 Estimation of creatinine clearance 52.46 ml/min 50-250 [facility] GFR/1.73 sq M.predicted leland g non-blacks MDRD (S/P/Bld) [Vol rate/Area]Ordered By: Ulisses Chan on 07-14-2024 Glomerular filtration rate (GFR) estimation/1.73 sq m using serum, plasma, or whole b 65 >60 [facility] Glomerular filtration rate ( GFR) estimation/1.73 sq m using serum, plasma, or whole bOrdered By: Ulisses Chan on 07-14-2024 GFR/1.73 sq M.predicted among non-blacks MDRD (S/P/Bld) [Vol rate/Area] 65 mL/min/{1.73_m2} >60 [facility] Glucose [Mass/Vol]Ordered By : Ulisses Chan on 07-14-2024 Serum glucose measurement (mass/volume) 141 mg/dL High 70-99 [facility] Hematocrit Auto (Bld) [Volum e fraction]Ordered By: Ulisses Chan on 07-14-2024 Hematocrit (Bld) [Volume fraction] 35.2 % Low 37-47 [facility] Automated blood hematocrit (percentage) 35.2 % Low 37-47 [facility] Hemoglobin measurementOrdere d By: Ulisses Chan on 07-14-2024 Hemoglobin (Bld) [Mass/Vol] 11.8 g/dL Low 12.0-15.0 [facility] Hemoglobin measurement 11.8 g/dL Low 12.0-15.0 [facility] Immature granulocytes/100 WB C Auto (Bld)Ordered By: Ulisses Chan on 07-14-2024 Immature granulocytes/100 WBC (Bld) 0.200 % 0.0-0.9 [facility] Automated immature granulocyte percentage 0.200 % 0.0-0.9 [facility] L499.0042on 07-14-2024 Trop T High Sen 11 ng/L Normal <=14 [facility] Comment on above: Performed By: #### L 499.0042 ####[facility] [address] [place], [address] L499.0043on 07-14-2024 Trop T High Sen Normal <=14 [facility] Comment on above: Result Comment: NO S PECIMEN COLLECTED. PATIENT DEPARTED ED Performed By: #### L 499.0043 ####[facility] [address] [place], [address] L501.4021on 07-14-2024 Trop T High Sen 9 ng/L Normal <=14 [facility] Comment on above: Performed By: #### L 501.4021, L100.0100, L500.2500 ####[facility] [address] [place], [address] Lymphocytes Auto (Unsp spec) [#/Vol]Ordered By: Ulisses Chan on 07-14-2024 Absolute lymphocyte count 1.82 X10^3/uL 0.83-4.51 [facility] Lymphocytes/100 WBC Auto (Un sp spec)Ordered By: Ulisses Chan on 07-14-2024 Automated lymphocyte count as percentage of total leukocytes 38.7 % 19-41 [facility] MCV (RBC) [Entitic vol]Order ed By: Ulisses Chan on 07-14-2024 MCV (mean corpuscular volume) determination 96.4 fL 81-99 [facility] MCV (mean corpuscular volume ) determinationOrdered By: Ulisses Chan on 07-14-2024 MCV (RBC) [Entitic vol] 96.4 fL 81-99 [facility] Mean corpuscular hemoglobin (MCH) determinationOrdered By: Ulisses Chan on 07-14-2024 MCH (RBC) [Entitic mass] 32.3 pg High 27.0-32.0 [facility] Mean corpuscular hemoglobin (MCH) determination 32.3 pg High 27.0-32.0 [facility] Mean corpuscular hemoglobin concentration (MCHC) determinationOrdered By: Ulisses Chan on 07-14-2024 Mean corpuscular hemoglobin concentration (MCHC) determination 33.5 g/dL 32-36 [facility] Mean platelet volume determi nationOrdered By: Ulisses Chan on 07-14-2024 Mean platelet volume determination 10.8 fl 6.2-12.0 [facility] Monocyte percentageOrdered B y: Ulisses Chan on 07-14-2024 Monocytes/100 WBC (Bld) 8.1 % 0-10 [facility] Monocyte percentage 8.1 % 0-10 [facility] Neutrophil percentageOrdered By: Ulisses Chan on 07-14-2024 Neutrophils/100 WBC (Bld) 51.1 % 47-70 [facility] Neutrophil percentage 51.1 % 47-70 [facility] No Panel InformationOrdered By: Ulisses Chan on 07-14-2024 9 ng/L <14 [facility] Nucleated red blood cell per centageOrdered By: Ulisses Chan on 07-14-2024 Nucleated red blood cell percentage 0 % 0-5 [facility] Platelet countOrdered By: Margarito Chan on 07-14-2024 Platelets (Bld) [#/Vol] 208 10*3/uL 150-450 [facility] Platelet count 208 K/mm3 150-450 [facility] Potassium (Unsp spec) [Mass/ Vol]Ordered By: Ulisses Chan on 07-14-2024 Potassium measurement (mass/volume) 3.9 mmol/L 3.3-5.1 [facility] Potassium measurement (mass/ volume)Ordered By: Ulisses Chan on 07-14-2024 Potassium (Unsp spec) [Mass/Vol] 3.9 mmol/L 3.3-5.1 [facility] RBC Auto (Bld) [#/Vol]Ordere d By: Ulisses Chan on 07-14-2024 RBC (Bld) [#/Vol] 3.65 10*6/uL Low 4.2-5.4 [facility] Automated blood erythrocyte count 3.65 M/mm3 Low 4.2-5.4 [facility] Serum creatinine measurement (mass/volume)Ordered By: Ulisses Chan on 07-14-2024 Creatinine [Mass/Vol] 0.94 mg/dL 0.70-1.20 [facility] Serum glucose measurement (m ass/volume)Ordered By: Ulisses Chan on 07-14-2024 Glucose [Mass/Vol] 141 mg/dL High 70-99 [facility] Serum or plasma calcium loretta urement (mass/volume)Ordered By: Ulisses Chan on 07-14-2024 Calcium [Mass/Vol] 9.4 mg/dL 7.6-11.0 [facility] Serum or plasma urea nitroge n measurement (mass/volume)Ordered By: Ulisses Chan on 07-14-2024 Urea nitrogen [Mass/Vol] 20 mg/dL High 08-20 [facility] Sodium levelOrdered By: Ulisses hCan on 07-14-2024 Sodium [Moles/Vol] 142 mmol/L 133-145 [facility] Sodium level 142 mmol/L 133-145 [facility] Troponin T.cardiac High sens itivity method [Mass/Vol]Ordered By: Ulisses Chan on 07-14-2024 Troponin T.cardiac [Mass/volume] in Serum or Plasma by High sensitivity method 11 ng/L <14 [facility] Troponin T.cardiac [Mass/vol ume] in Serum or Plasma by High sensitivity methodOrdered By: Ulisses Chan on 07-14-2024 Troponin T.cardiac High sensitivity method [Mass/Vol] 11 ng/L <14 [facility] Urea nitrogen [Mass/Vol]Orde red By: Ulisses Chan on 07-14-2024 Serum or plasma urea nitrogen measurement (mass/volume) 20 mg/dL High 08-20 [facility] White blood cell (WBC) count Ordered By: Ulisses Chan on 07-14-2024 WBC (Bld) [#/Vol] 4.7 10*3/uL 4.4-11.0 [facility] White blood cell (WBC) count 4.7 K/mm3 4.4-11.0 [facility] Office Visit Reporton 2024 Office Visit Report Normal [facility] ALP [Catalytic activity/Vol] Ordered By: Yee Rowland on 06-22-2024 Serum or plasma alkaline phosphatase measurement 60 U/L 45-117 [facility] ALT [Catalytic activity/Vol] Ordered By: Yee Rowland on 06-22-2024 Serum or plasma alanine aminotransferase (ALT) measurement 22 U/L 13-56 [facility] Absolute lymphocyte countOrd ered By: Yeejazlyn Rowland on 06-22-2024 Lymphocytes Auto (Unsp spec) [#/Vol] 1.44 10*3/uL 0.83-4.51 [facility] Absolute neutrophil countOrd ered By: Yee Rowland on 06-22-2024 Absolute neutrophil count 2.0 X10^3/uL 2.0-7.7 [facility] Albumin [Mass/Vol]Ordered By : Yee Rowland on 06-22-2024 Serum or plasma albumin measurement (mass/volume) 3.1 g/dL Low 3.2-5.0 [facility] Albumin to globulin ratioOrd ered By: Yeejazlyn Rowland on 06-22-2024 Albumin to globulin ratio 0.9 RATIO 0.9-2.4 [facility] Automated lymphocyte count a s percentage of total leukocytesOrdered By: Yee Rowland on 06-22-2024 Lymphocytes/100 WBC Auto (Unsp spec) 37.7 % 19-41 [facility] Basophil percentageOrdered B y: Yee Rowland on 06-22-2024 Basophils/100 WBC (Bld) 0.5 % 0-1 [facility] Basophil percentage 0.5 % 0-1 [facility] Bilirubin, totalOrdered By: Yee Rowland on 06-22-2024 Bilirubin [Mass/Vol] 0.40 mg/dL 0.20-1.00 [facility] Bilirubin, total 0.40 mg/dL 0.20-1.00 [facility] Blood urea nitrogen (BUN)/cr eatinine ratioOrdered By: Yee Rowland on 06-22-2024 Blood urea nitrogen (BUN)/creatinine ratio 26.2 RATIO High 10-20 [facility] CBC W/Diff, Automatedon 06-04 Absolute Lymph 1.44 X10 3/uL Normal 0.83-4.51 [facility] Comment on above: Performed By: #### L 500.4050, L100.0100 ####[facility] [address] [place], [address] Absolute Neut 2.0 X10 3/uL Normal 2.0-7.7 [facility] Comment on above: Performed By: #### L 500.4050, L100.0100 ####[facility] [address] [place], [address] Basophils/100 WBC (Bld) 0.5 % Normal 0-1 [facility] Comment on above: Performed By: #### L 500.4050, L100.0100 ####[facility] [address] [place], [address] Eosinophils/100 WBC (Bld) 2.6 % Normal 0-5 [facility] Comment on above: Performed By: #### L 500.4050, L100.0100 ####[facility] [address] [place], [address] Erythrocyte distribution width (RBC) [Ratio] 13.4 % Normal 11.6-14.6 [facility] Comment on above: Performed By: #### L 500.4050, L100.0100 ####[facility] [address] [place], [address] Hematocrit (Bld) [Volume fraction] 34.8 % Low 37-47 [facility] Comment on above: Performed By: #### L 500.4050, L100.0100 ####[facility] [address] [place], [address] Hemoglobin (Bld) [Mass/Vol] 11.5 g/dL Low 12.0-15.0 [facility] Comment on above: Performed By: #### L 500.4050, L100.0100 ####[facility] [address] [place], [address] IG% 0.300 Normal 0.0-0.9 [facility] Comment on above: Result Comment: IG% - Immature Granulocytes (promyelocytes, myelocytes andmetamyelocytes) > 1% indicates that a LEFT SHIFT is Present. Performed By: #### L 500.4050, L100.0100 ####[facility] [address] [place], [address] Lymphocytes/100 WBC (Bld) 37.7 % Normal 19-41 [facility] Comment on above: Performed By: #### L 500.4050, L100.0100 ####[facility] [address] [place], [address] MCH (RBC) [Entitic mass] 32.3 pg High 27.0-32.0 [facility] Comment on above: Performed By: #### L 500.4050, L100.0100 ####[facility] [address] [place], [address] MCHC (RBC) [Mass/Vol] 33.0 g/dL Normal 32-36 [facility] Comment on above: Performed By: #### L 500.4050, L100.0100 ####[facility] [address] [place], [address] MCV (RBC) [Entitic vol] 97.8 fL Normal 81-99 [facility] Comment on above: Performed By: #### L 500.4050, L100.0100 ####[facility] [address] [place], [address] Monocytes/100 WBC (Bld) 7.1 % Normal 0-10 [facility] Comment on above: Performed By: #### L 500.4050, L100.0100 ####[facility] [address] [place], [address] Neutrophils/100 WBC (Bld) 51.8 % Normal 47-70 [facility] Comment on above: Performed By: #### L 500.4050, L100.0100 ####[facility] [address] [place], [address] Nucleated RBC (Bld) [#/Vol] 0 10*3/uL Normal 0-5 [facility] Comment on above: Performed By: #### L 500.4050, L100.0100 ####[facility] [address] [place], [address] Platelet mean volume (Bld) [Entitic vol] 11.1 fL Normal 6.2-12.0 [facility] Comment on above: Performed By: #### L 500.4050, L100.0100 ####[facility] [address] [place], [address] Platelets (Bld) [#/Vol] 192 10*3/uL Normal 150-450 [facility] Comment on above: Performed By: #### L 500.4050, L100.0100 ####[facility] [address] [place], [address] RBC (Bld) [#/Vol] 3.56 10*6/uL Low 4.2-5.4 [facility] Comment on above: Performed By: #### L 500.4050, L100.0100 ####[facility] [address] [place], [address] RDW SD 47.8 fl High 35.1-43.9 [facility] Comment on above: Performed By: #### L 500.4050, L100.0100 ####[facility] [address] [place], [address] WBC (Bld) [#/Vol] 3.8 10*3/uL Low 4.4-11.0 [facility] Comment on above: Performed By: #### L 500.4050, L100.0100 ####[facility] [address] [place], [address] Calcium [Mass/Vol]Ordered By : Yee Rowland on 06-22-2024 Serum or plasma calcium measurement (mass/volume) 8.7 mg/dL 8.5-10.1 [facility] Carbon dioxide measurementOr dered By: Yee Rowland on 06-22-2024 CO2 [Moles/Vol] 25.0 mmol/L 21.0-32.0 [facility] Carbon dioxide measurement 25.0 mmol/L 21.0-32.0 [facility] Chloride measurementOrdered By: Yee Rowland on 06-22-2024 Chloride [Moles/Vol] 110 mmol/L High 98-107 [facility] Chloride measurement 110 mmol/L High 98-107 [facility] Comprehensive Metabolic Prof ilon 06-22-2024 Albumin [Mass/Vol] 3.1 g/dL Low 3.2-5.0 [facility] Comment on above: Performed By: #### L 500.4050, L100.0100 ####[facility] [address] [place], [address] Albumin/Globulin [Mass ratio] 0.9 {ratio} Normal 0.9-2.4 [facility] Comment on above: Performed By: #### L 500.4050, L100.0100 ####[facility] [address] [place], [address] ALK P 60 U/L Normal 45-117 [facility] Comment on above: Performed By: #### L 500.4050, L100.0100 ####[facility] [address] [place], [address] ALT [Catalytic activity/Vol] 22 U/L Normal 13-56 [facility] Comment on above: Performed By: #### L 500.4050, L100.0100 ####[facility] [address] [place], [address] AST [Catalytic activity/Vol] 18 U/L Normal 15-37 [facility] Comment on above: Performed By: #### L 500.4050, L100.0100 ####[facility] [address] [place], [address] Bilirubin [Mass/Vol] 0.40 mg/dL Normal 0.20-1.00 [facility] Comment on above: Result Comment: For patients on eltrombopag therapy, use of Dimension [place] TBIL is not recommended. Performed By: #### L 500.4050, L100.0100 ####[facility] [address] [place], [address] BUN/CRE 26.2 RATIO High 10-20 [facility] Comment on above: Performed By: #### L 500.4050, L100.0100 ####[facility] [address] [place], [address] CA,Total 8.7 mg/dL Normal 8.5-10.1 [facility] Comment on above: Performed By: #### L 500.4050, L100.0100 ####[facility] [address] [place], [address] Chloride [Moles/Vol] 110 mmol/L High 98-107 [facility] Comment on above: Performed By: #### L 500.4050, L100.0100 ####[facility] [address] [place], [address] CO2 [Moles/Vol] 25.0 mmol/L Normal 21.0-32.0 [facility] Comment on above: Performed By: #### L 500.4050, L100.0100 ####[facility] [address] [place], [address] Creatinine [Mass/Vol] 0.88 mg/dL Normal 0.55-1.02 [facility] Comment on above: Result Comment: The validity of the calculated GFR GFRAA in patients over70 years has not been determined. Clinical correlation isessential. Performed By: #### L 500.4050, L100.0100 ####[facility] [address] [place], [address] EST GFR - AA 82 mL/min Normal >60 [facility] Comment on above: Result Comment: Afri can Samoan GFR Calc Performed By: #### L 500.4050, L100.0100 ####[facility] [address] [place], [address] GAP 6 Normal 5-15 [facility] Comment on above: Performed By: #### L 500.4050, L100.0100 ####[facility] [address] [place], [address] GFR/1.73 sq M.predicted among non-blacks MDRD (S/P/Bld) [Vol rate/Area] 68 mL/min/{1.73_m2} Normal >60 [facility] Comment on above: Result Comment: Non- GFR Calc Performed By: #### L 500.4050, L100.0100 ####[facility] [address] [place], [address] Globulin (S) [Mass/Vol] 3.5 g/dL Normal 2.2-4.2 [facility] Comment on above: Performed By: #### L 500.4050, L100.0100 ####[facility] [address] [place], [address] Glucose [Mass/Vol] 103 mg/dL Normal 74-106 [facility] Comment on above: Result Comment: Fast ing Glucose result from 100 to 125 mg/dLsuggests IMPAIRED HOMEOSTASIS per A.D.A. criteria. Performed By: #### L 500.4050, L100.0100 ####[facility] [address] [place], [address] Potassium [Moles/Vol] 4.1 mmol/L Normal 3.5-5.1 [facility] Comment on above: Performed By: #### L 500.4050, L100.0100 ####[facility] [address] [place], [address] Sodium [Moles/Vol] 141 mmol/L Normal 136-145 [facility] Comment on above: Performed By: #### L 500.4050, L100.0100 ####[facility] [address] [place], [address] T PROT 6.6 g/dL Normal 6.4-8.2 [facility] Comment on above: Performed By: #### L 500.4050, L100.0100 ####[facility] [address] [place], [address] Urea nitrogen [Mass/Vol] 23 mg/dL High 7-18 [facility] Comment on above: Performed By: #### L 500.4050, L100.0100 ####[facility] [address] [place], [address] Creatinine [Mass/Vol]Ordered By: Yee Rowland on 06-22-2024 Serum or plasma creatinine measurement (mass/volume) 0.88 mg/dL 0.55-1.02 [facility] Eosinophil percentageOrdered By: Yee Rowland on 06-22-2024 Eosinophils/100 WBC (Bld) 2.6 % 0-5 [facility] Eosinophil percentage 2.6 % 0-5 [facility] Erythrocyte distribution wid th (RBC) [Entitic vol]Ordered By: Yee Rowland on 06-22-2024 Erythrocyte distribution width standard deviation 47.8 fl High 35.1-43.9 [facility] Erythrocyte distribution wid th (RBC) [Ratio]Ordered By: Yee Rowland on 06-22-2024 Erythrocyte distribution width ratio 13.4 % 11.6-14.6 [facility] Erythrocyte distribution wid th ratioOrdered By: Yee Rowland on 06-22-2024 Erythrocyte distribution width (RBC) [Ratio] 13.4 % 11.6-14.6 [facility] Erythrocyte distribution wid th standard deviationOrdered By: Yee Rowland on 06-22-2024 Erythrocyte distribution width (RBC) [Ratio] 47.8 fl High 35.1-43.9 [facility] Estimated glomerular filtrat ion rate (GFR) AmericanOrdered By: Yee Rowland on 06-22-2024 Estimated glomerular filtration rate (GFR) 82 mL/min >60 [facility] Glomerular filtration rate ( GFR) estimationOrdered By: Yee Rowland on 06-22-2024 GFR/1.73 sq M.predicted among non-blacks MDRD (S/P/Bld) [Vol rate/Area] 68 mL/min/{1.73_m2} >60 [facility] Glomerular filtration rate (GFR) estimation 68 mL/min >60 [facility] Glucose measurementOrdered B y: Yee Rowland on 06-22-2024 Glucose [Mass/Vol] 103 mg/dL 74-106 [facility] Glucose measurement 103 mg/dL 74-106 [facility] Hematocrit Auto (Bld) [Volum e fraction]Ordered By: Yee Rowland on 06-22-2024 Hematocrit (Bld) [Volume fraction] 34.8 % Low 37-47 [facility] Automated blood hematocrit (percentage) 34.8 % Low 37-47 [facility] Hemoglobin measurementOrdere d By: Yee Rowland on 06-22-2024 Hemoglobin (Bld) [Mass/Vol] 11.5 g/dL Low 12.0-15.0 [facility] Hemoglobin measurement 11.5 g/dL Low 12.0-15.0 [facility] Immature granulocytes/100 WB C Auto (Bld)Ordered By: Yee Rowland on 06-22-2024 Immature granulocytes/100 WBC (Bld) 0.300 % 0.0-0.9 [facility] Automated immature granulocyte percentage 0.300 % 0.0-0.9 [facility] Lymphocytes Auto (Unsp spec) [#/Vol]Ordered By: Yee Rowland on 06-22-2024 Absolute lymphocyte count 1.44 X10^3/uL 0.83-4.51 [facility] Lymphocytes/100 WBC Auto (Un sp spec)Ordered By: Yee Rowland on 06-22-2024 Automated lymphocyte count as percentage of total leukocytes 37.7 % 19-41 [facility] MCV (RBC) [Entitic vol]Order ed By: Yee Rowland on 06-22-2024 MCV (mean corpuscular volume) determination 97.8 fL 81-99 [facility] MCV (mean corpuscular volume ) determinationOrdered By: Yee Rowland on 06-22-2024 MCV (RBC) [Entitic vol] 97.8 fL 81-99 [facility] Mean corpuscular hemoglobin (MCH) determinationOrdered By: Yee Rowland on 06-22-2024 MCH (RBC) [Entitic mass] 32.3 pg High 27.0-32.0 [facility] Mean corpuscular hemoglobin (MCH) determination 32.3 pg High 27.0-32.0 [facility] Mean corpuscular hemoglobin concentration (MCHC) determinationOrdered By: Yee Rowland on 06-22-2024 Mean corpuscular hemoglobin concentration (MCHC) determination 33.0 g/dL 32-36 [facility] Mean platelet volume determi nationOrdered By: Yee Rowland on 06-22-2024 Mean platelet volume determination 11.1 fl 6.2-12.0 [facility] Monocyte percentageOrdered B y: Yee Rowland on 06-22-2024 Monocytes/100 WBC (Bld) 7.1 % 0-10 [facility] Monocyte percentage 7.1 % 0-10 [facility] Neutrophil percentageOrdered By: Yee Rowland on 06-22-2024 Neutrophils/100 WBC (Bld) 51.8 % 47-70 [facility] Neutrophil percentage 51.8 % 47-70 [facility] No Panel InformationOrdered By: Yee Rowland on 06-22-2024 18 U/L 15-37 [facility] Nucleated red blood cell per centageOrdered By: Yee Rowland on 06-22-2024 Nucleated red blood cell percentage 0 % 0-5 [facility] Platelet countOrdered By: Rene Rowland on 06-22-2024 Platelets (Bld) [#/Vol] 192 10*3/uL 150-450 [facility] Platelet count 192 K/mm3 150-450 [facility] Potassium measurementOrdered By: Yee Rowland on 06-22-2024 Potassium [Moles/Vol] 4.1 mmol/L 3.5-5.1 [facility] Potassium measurement 4.1 mmol/L 3.5-5.1 [facility] RBC Auto (Bld) [#/Vol]Ordere d By: Yee Rowland on 06-22-2024 RBC (Bld) [#/Vol] 3.56 10*6/uL Low 4.2-5.4 [facility] Automated blood erythrocyte count 3.56 M/mm3 Low 4.2-5.4 [facility] Serum anion gap measurementO rdered By: Yee Rowland on 06-22-2024 Serum anion gap measurement 6 5-15 [facility] Serum globulin measurementOr dered By: Yee Rowland on 06-22-2024 Globulin (S) [Mass/Vol] 3.5 g/dL 2.2-4.2 [facility] Serum globulin measurement 3.5 g/dL 2.2-4.2 [facility] Serum or plasma alanine carvalho otransferase (ALT) measurementOrdered By: Yee Rowland on 06-22-2024 ALT [Catalytic activity/Vol] 22 U/L 13-56 [facility] Serum or plasma albumin loretta urement (mass/volume)Ordered By: Yee Rowland on 06-22-2024 Albumin [Mass/Vol] 3.1 g/dL Low 3.2-5.0 [facility] Serum or plasma alkaline dima sphatase measurementOrdered By: Yee Rowland on 06-22-2024 ALP [Catalytic activity/Vol] 60 U/L 45-117 [facility] Serum or plasma calcium loretta urement (mass/volume)Ordered By: Yee Rowland on 06-22-2024 Calcium [Mass/Vol] 8.7 mg/dL 8.5-10.1 [facility] Serum or plasma creatinine m easurement (mass/volume)Ordered By: Yee Rowland on 06-22-2024 Creatinine [Mass/Vol] 0.88 mg/dL 0.55-1.02 [facility] Serum or plasma urea nitroge n measurement (mass/volume)Ordered By: Yee Rowland on 06-22-2024 Urea nitrogen [Mass/Vol] 23 mg/dL High 11-18 [facility] Sodium levelOrdered By: Karl Rowland on 06-22-2024 Sodium [Moles/Vol] 141 mmol/L 136-145 [facility] Sodium level 141 mmol/L 136-145 [facility] Total proteinOrdered By: Prasad Rowland on 06-22-2024 Protein [Mass/Vol] 6.6 g/dL 6.4-8.2 [facility] Total protein 6.6 g/dL 6.4-8.2 [facility] Urea nitrogen [Mass/Vol]Orde red By: Yee Rowland on 06-22-2024 Serum or plasma urea nitrogen measurement (mass/volume) 23 mg/dL High 11-18 [facility] White blood cell (WBC) count Ordered By: Yee Rowland on 06-22-2024 WBC (Bld) [#/Vol] 3.8 10*3/uL Low 4.4-11.0 [facility] White blood cell (WBC) count 3.8 K/mm3 Low 4.4-11.0 [facility] SCRN MAMM (CAD)W/PAUL BILATo n 06-07-2024 SCRN MAMM (CAD)W/PAUL BILAT Normal [facility] Internal Medicine Office Vis iton 05-20-2024 Internal Medicine Office Visit Normal [facility] No Panel Informationon 05-20 6.5 % High 4.2-6.3 [facility] ALP [Catalytic activity/Vol] Ordered By: Pepe Ruiz on 05-16-2024 Serum or plasma alkaline phosphatase measurement 66 U/L 45-117 [facility] ALT [Catalytic activity/Vol] Ordered By: Pepe Ruiz on 05-16-2024 Serum or plasma alanine aminotransferase (ALT) measurement 22 U/L 13-56 [facility] Albumin [Mass/Vol]Ordered By : Pepe Ruiz on 05-16-2024 Serum or plasma albumin measurement (mass/volume) 3.1 g/dL Low 3.2-5.0 [facility] Albumin to globulin ratioOrd ered By: Pepe Ruiz on 05-16-2024 Albumin to globulin ratio 0.9 RATIO 0.9-2.4 [facility] Ammoniaon 05-16-2024 Ammonia (P) [Moles/Vol] 39.0 umol/L High 11-32 [facility] Comment on above: Performed By: #### L 500.4050, L501.8100, L100.0500, L503.5510 ####[facility] [address] [place], [address] Bilirubin, totalOrdered By: Pepe Ruiz on 05-16-2024 Bilirubin, total 0.30 mg/dL 0.20-1.00 [facility] Blood urea nitrogen (BUN)/cr eatinine ratioOrdered By: Pepe Ruiz on 05-16-2024 Blood urea nitrogen (BUN)/creatinine ratio 23.7 RATIO High 10-20 [facility] CBC-Complete Blood Cnt No Di ffon 05-16-2024 Erythrocyte distribution width (RBC) [Ratio] 13.5 % Normal 11.6-14.6 [facility] Comment on above: Performed By: #### L 500.4050, L501.8100, L100.0500, L503.5510 ####[facility] [address] [place], [address] Hematocrit (Bld) [Volume fraction] 35.5 % Low 37-47 [facility] Comment on above: Performed By: #### L 500.4050, L501.8100, L100.0500, L503.5510 ####[facility] [address] [place], [address] Hemoglobin (Bld) [Mass/Vol] 11.4 g/dL Low 12.0-15.0 [facility] Comment on above: Performed By: #### L 500.4050, L501.8100, L100.0500, L503.5510 ####[facility] [address] [place], [address] MCH (RBC) [Entitic mass] 31.6 pg Normal 27.0-32.0 [facility] Comment on above: Performed By: #### L 500.4050, L501.8100, L100.0500, L503.5510 ####[facility] [address] [place], [address] MCHC (RBC) [Mass/Vol] 32.1 g/dL Normal 32-36 [facility] Comment on above: Performed By: #### L 500.4050, L501.8100, L100.0500, L503.5510 ####[facility] [address] [place], [address] MCV (RBC) [Entitic vol] 98.3 fL Normal 81-99 [facility] Comment on above: Performed By: #### L 500.4050, L501.8100, L100.0500, L503.5510 ####[facility] [address] [place], [address] Platelet mean volume (Bld) [Entitic vol] 11.6 fL Normal 6.2-12.0 [facility] Comment on above: Performed By: #### L 500.4050, L501.8100, L100.0500, L503.5510 ####[facility] [address] [place], [address] Platelets (Bld) [#/Vol] 173 10*3/uL Normal 150-450 [facility] Comment on above: Performed By: #### L 500.4050, L501.8100, L100.0500, L503.5510 ####[facility] [address] [place], [address] RBC (Bld) [#/Vol] 3.61 10*6/uL Low 4.2-5.4 [facility] Comment on above: Performed By: #### L 500.4050, L501.8100, L100.0500, L503.5510 ####[facility] [address] [place], [address] RDW SD 49.5 fl High 35.1-43.9 [facility] Comment on above: Performed By: #### L 500.4050, L501.8100, L100.0500, L503.5510 ####[facility] [address] [place], [address] WBC (Bld) [#/Vol] 3.5 10*3/uL Low 4.4-11.0 [facility] Comment on above: Performed By: #### L 500.4050, L501.8100, L100.0500, L503.5510 ####[facility] [address] [place], [address] Calcium [Mass/Vol]Ordered By : Pepe Ruiz on 05-16-2024 Serum or plasma calcium measurement (mass/volume) 8.7 mg/dL 8.5-10.1 [facility] Carbon dioxide measurementOr dered By: Pepe Ruiz on 05-16-2024 Carbon dioxide measurement 26.0 mmol/L 21.0-32.0 [facility] Chloride measurementOrdered By: Pepe Ruiz on 05-16-2024 Chloride measurement 111 mmol/L High 98-107 [facility] Comprehensive Metabolic Prof ilon 05-16-2024 Albumin [Mass/Vol] 3.1 g/dL Low 3.2-5.0 [facility] Comment on above: Performed By: #### L 500.4050, L501.8100, L100.0500, L503.5510 ####[facility] [address] [place], [address] Albumin/Globulin [Mass ratio] 0.9 {ratio} Normal 0.9-2.4 [facility] Comment on above: Performed By: #### L 500.4050, L501.8100, L100.0500, L503.5510 ####[facility] [address] [place], [address] ALK P 66 U/L Normal 45-117 [facility] Comment on above: Performed By: #### L 500.4050, L501.8100, L100.0500, L503.5510 ####[facility] [address] [place], [address] ALT [Catalytic activity/Vol] 22 U/L Normal 13-56 [facility] Comment on above: Performed By: #### L 500.4050, L501.8100, L100.0500, L503.5510 ####[facility] [address] [place], [address] AST [Catalytic activity/Vol] 15 U/L Normal 15-37 [facility] Comment on above: Performed By: #### L 500.4050, L501.8100, L100.0500, L503.5510 ####[facility] [address] [place], [address] Bilirubin [Mass/Vol] 0.30 mg/dL Normal 0.20-1.00 [facility] Comment on above: Result Comment: For patients on eltrombopag therapy, use of Dimension [place] TBIL is not recommended. Performed By: #### L 500.4050, L501.8100, L100.0500, L503.5510 ####[facility] [address] [place], [address] BUN/CRE 23.7 RATIO High 10-20 [facility] Comment on above: Performed By: #### L 500.4050, L501.8100, L100.0500, L503.5510 ####[facility] [address] [place], [address] CA,Total 8.7 mg/dL Normal 8.5-10.1 [facility] Comment on above: Performed By: #### L 500.4050, L501.8100, L100.0500, L503.5510 ####[facility] [address] [place], [address] Chloride [Moles/Vol] 111 mmol/L High 98-107 [facility] Comment on above: Performed By: #### L 500.4050, L501.8100, L100.0500, L503.5510 ####[facility] [address] [place], [address] CO2 [Moles/Vol] 26.0 mmol/L Normal 21.0-32.0 [facility] Comment on above: Performed By: #### L 500.4050, L501.8100, L100.0500, L503.5510 ####[facility] [address] [place], [address] Creatinine [Mass/Vol] 0.93 mg/dL Normal 0.55-1.02 [facility] Comment on above: Result Comment: The validity of the calculated GFR GFRAA in patients over70 years has not been determined. Clinical correlation isessential. Performed By: #### L 500.4050, L501.8100, L100.0500, L503.5510 ####[facility] [address] [place], [address] EST GFR - AA 76 mL/min Normal >60 [facility] Comment on above: Result Comment: Afri can Samoan GFR Calc Performed By: #### L 500.4050, L501.8100, L100.0500, L503.5510 ####[facility] [address] [place], [address] GAP 3 Low 5-15 [facility] Comment on above: Performed By: #### L 500.4050, L501.8100, L100.0500, L503.5510 ####[facility] [address] [place], [address] GFR/1.73 sq M.predicted among non-blacks MDRD (S/P/Bld) [Vol rate/Area] 63 mL/min/{1.73_m2} Normal >60 [facility] Comment on above: Result Comment: Non- GFR Calc Performed By: #### L 500.4050, L501.8100, L100.0500, L503.5510 ####[facility] [address] [place], [address] Globulin (S) [Mass/Vol] 3.6 g/dL Normal 2.2-4.2 [facility] Comment on above: Performed By: #### L 500.4050, L501.8100, L100.0500, L503.5510 ####[facility] [address] [place], [address] Glucose [Mass/Vol] 122 mg/dL High 74-106 [facility] Comment on above: Result Comment: Fast ing Glucose result from 100 to 125 mg/dLsuggests IMPAIRED HOMEOSTASIS per A.D.A. criteria. Performed By: #### L 500.4050, L501.8100, L100.0500, L503.5510 ####[facility] [address] [place], [address] Potassium [Moles/Vol] 4.3 mmol/L Normal 3.5-5.1 [facility] Comment on above: Performed By: #### L 500.4050, L501.8100, L100.0500, L503.5510 ####[facility] [address] [place], [address] Sodium [Moles/Vol] 140 mmol/L Normal 136-145 [facility] Comment on above: Performed By: #### L 500.4050, L501.8100, L100.0500, L503.5510 ####[facility] [address] [place], [address] T PROT 6.7 g/dL Normal 6.4-8.2 [facility] Comment on above: Performed By: #### L 500.4050, L501.8100, L100.0500, L503.5510 ####[facility] [address] [place], [address] Urea nitrogen [Mass/Vol] 22 mg/dL High 7-18 [facility] Comment on above: Performed By: #### L 500.4050, L501.8100, L100.0500, L503.5510 ####[facility] [address] [place], [address] Creatinine [Mass/Vol]Ordered By: Pepe Ruiz on 05-16-2024 Serum or plasma creatinine measurement (mass/volume) 0.93 mg/dL 0.55-1.02 [facility] Erythrocyte distribution wid th (RBC) [Entitic vol]Ordered By: Pepe Ruiz on 05-16-2024 Erythrocyte distribution width standard deviation 49.5 fl High 35.1-43.9 [facility] Erythrocyte distribution wid th (RBC) [Ratio]Ordered By: Pepe Ruiz on 05-16-2024 Erythrocyte distribution width ratio 13.5 % 11.6-14.6 [facility] Estimated glomerular filtrat ion rate (GFR) AmericanOrdered By: Pepe Ruiz on 05-16-2024 Estimated glomerular filtration rate (GFR) 76 mL/min >60 [facility] Glomerular filtration rate ( GFR) estimationOrdered By: Pepe Ruiz on 05-16-2024 Glomerular filtration rate (GFR) estimation 63 mL/min >60 [facility] Glucose measurementOrdered B y: Pepe Ruiz on 05-16-2024 Glucose measurement 122 mg/dL High 74-106 [facility] Hematocrit Auto (Bld) [Volum e fraction]Ordered By: Pepe Ruiz on 05-16-2024 Automated blood hematocrit (percentage) 35.5 % Low 37-47 [facility] Hemoglobin measurementOrdere d By: Pepe Ruiz on 05-16-2024 Hemoglobin measurement 11.4 g/dL Low 12.0-15.0 [facility] MCV (RBC) [Entitic vol]Order ed By: Pepe Ruiz on 05-16-2024 MCV (mean corpuscular volume) determination 98.3 fL 81-99 [facility] Mean corpuscular hemoglobin (MCH) determinationOrdered By: Pepe Ruiz on 05-16-2024 Mean corpuscular hemoglobin (MCH) determination 31.6 pg 27.0-32.0 [facility] Mean corpuscular hemoglobin concentration (MCHC) determinationOrdered By: Pepe Ruiz on 05-16-2024 Mean corpuscular hemoglobin concentration (MCHC) determination 32.1 g/dL 32-36 [facility] Mean platelet volume determi nationOrdered By: Pepe Ruiz on 05-16-2024 Mean platelet volume determination 11.6 fl 6.2-12.0 [facility] Neurology Visit Reporton Neurology Visit Report Normal [facility] No Panel InformationOrdered By: Pepe Ruiz on 05-16-2024 15 U/L 15-37 [facility] Platelet countOrdered By: Ra cheyanne Ruiz on 05-16-2024 Platelet count 173 K/mm3 150-450 [facility] Potassium measurementOrdered By: Pepe Ruiz on 05-16-2024 Potassium measurement 4.3 mmol/L 3.5-5.1 [facility] RBC Auto (Bld) [#/Vol]Ordere d By: Pepe Ruiz on 05-16-2024 Automated blood erythrocyte count 3.61 M/mm3 Low 4.2-5.4 [facility] Serum anion gap measurementO rdered By: Pepe Ruiz on 05-16-2024 Serum anion gap measurement 3 Low 5-15 [facility] Serum globulin measurementOr dered By: Pepe Ruiz on 05-16-2024 Serum globulin measurement 3.6 g/dL 2.2-4.2 [facility] Sodium levelOrdered By: Jimmieraymundo yorknapoleon Ruiz on 05-16-2024 Sodium level 140 mmol/L 136-145 [facility] Total proteinOrdered By: Jimmie juannapoleon Ruiz on 05-16-2024 Total protein 6.7 g/dL 6.4-8.2 [facility] Urea nitrogen [Mass/Vol]Orde red By: Pepe Ruiz on 05-16-2024 Serum or plasma urea nitrogen measurement (mass/volume) 22 mg/dL High 7-18 [facility] Valproate levelOrdered By: Tere Ruiz on 05-16-2024 Valproate level 74 ug/mL 50-100 [facility] Valproic Acid (Depakene) Lev tommy 05-16-2024 VALPROIC ACID 74 ug/mL Normal 50-100 [facility] Comment on above: Performed By: #### L 500.4050, L501.8100, L100.0500, L503.5510 ####[facility] [id number] [place], [address] Venous blood ammonia measure mentOrdered By: Pepe Ruiz on 05-16-2024 Venous blood ammonia measurement 39.0 umol/L High 11-32 [facility] White blood cell (WBC) count Ordered By: Pepe Ruiz on 05-16-2024 White blood cell (WBC) count 3.5 K/mm3 Low 4.4-11.0 [facility] 6 Minute Walk Teston 04-25-2 024 6 Minute Walk Test Normal [facility] Office Visit Reporton 2023 Office Visit Report Normal [facility] Cardiology Visit Reporton Cardiology Visit Report Normal [facility] Absolute lymphocyte countOrd ered By: Pepe Ruiz on 09-07-2023 Lymphocytes Auto (Unsp spec) [#/Vol] 1.27 10*3/uL 0.83-4.51 [facility] Automated lymphocyte count a s percentage of total leukocytesOrdered By: Pepe Ruiz on 09-07-2023 Lymphocytes/100 WBC Auto (Unsp spec) 31.9 % 19-41 [facility] Basophil percentageOrdered B y: Pepe Ruiz on 09-07-2023 Basophils/100 WBC (Bld) 0.3 % 0-1 [facility] Eosinophils/100 WBC (Bld) 6.5 % 0-5 [facility] Hemoglobin (Bld) [Mass/Vol] 10.8 g/dL 12.0-15.0 [facility] Monocytes/100 WBC (Bld) 9.3 % 0-10 [facility] Neutrophils (Bld) [#/Vol] 2.0 10*3/uL 2.0-7.7 [facility] Neutrophils/100 WBC (Bld) 51.2 % 47-70 [facility] WBC (Bld) [#/Vol] 4.0 10*3/uL 4.4-11.0 [facility] Ammonia (P) [Moles/Vol] 67.0 umol/L 11-32 [facility] Basophil percentage 17.0 IU/mL <15 [facility] Bilirubin [Mass/Vol] 0.30 mg/dL 0.20-1.00 [facility] Comment on above: For patients on eltr ombopag therapy, use of Dimension [place] TBIL is not recommended. Chloride [Moles/Vol] 111 mmol/L 98-107 [facility] Glucose [Mass/Vol] 139 mg/dL 74-106 [facility] Comment on above: Fasting Glucose resu lt greater than or equal to 126 mg/dL suggests DIABETES MELLITUS per A.D.A. criteria. Potassium [Moles/Vol] 4.0 mmol/L 3.5-5.1 [facility] Protein [Mass/Vol] 6.6 g/dL 6.4-8.2 [facility] Sodium [Moles/Vol] 141 mmol/L 136-145 [facility] Determination of erythrocyte mean corpuscular volume (MCV)Ordered By: Pepe Ruiz on 09-07-2023 MCV (RBC) [Entitic vol] 100.0 fL 81-99 [facility] Erythrocyte distribution wid th ratioOrdered By: Pepe Ruiz on 09-07-2023 Erythrocyte distribution width (RBC) [Ratio] 14.2 % 11.6-14.6 [facility] Erythrocyte distribution wid th standard deviationOrdered By: Pepe Ruiz on 09-07-2023 Erythrocyte distribution width (RBC) [Entitic vol] 52.2 fL 35.1-43.9 [facility] Erythrocyte sedimentation ra teOrdered By: Pepe Ruiz on 09-07-2023 ESR (Bld) [Velocity] 2 mm/h 0-30 [facility] Hematocrit Auto (Bld) [Volum e fraction]Ordered By: Pepeamol Ruiz on 09-07-2023 Hematocrit (Bld) [Volume fraction] 33.0 % 37-47 [facility] Immature granulocytes/100 WB C Auto (Bld)[facility] Immature granulocytes/100 WBC (Bld) 0.800 % 0.0-0.9 [facility] Comment on above: IG% - Immature Granu locytes (promyelocytes, myelocytes and metamyelocytes) > 1% indicates that a LEFT SHIFT is Present. Laboratory - Chemistry and C hemistry - challengeOrdered By: Pepeamol Ruiz on 09-07-2023 Albumin/Globulin [Mass ratio] 0.7 {ratio} 0.9-2.4 [facility] ALP [Catalytic activity/Vol] 93 U/L 45-117 [facility] ALT [Catalytic activity/Vol] 21 U/L 13-56 [facility] CO2 [Moles/Vol] 25.0 mmol/L 21.0-32.0 [facility] Cobalamin (Vitamin B12) [Mass/Vol] 366 pg/mL 211-911 [facility] Globulin (S) [Mass/Vol] 3.8 g/dL 2.2-4.2 [facility] Urea nitrogen/Creatinine [Mass ratio] 21.4 mg/mg 10-20 [facility] Laboratory - Hematology and Cell countsOrdered By: Pepeamol Ruiz on 09-07-2023 MCH (RBC) [Entitic mass] 32.7 pg 27.0-32.0 [facility] MCHC (RBC) [Mass/Vol] 32.7 g/dL 32-36 [facility] Nucleated RBC/100 WBC (Bld) [Ratio] 0 % 0-5 [facility] Platelet mean volume (Bld) [Entitic vol] 12.0 fL 6.2-12.0 [facility] Platelets (Bld) [#/Vol] 186 10*3/uL 150-450 [facility] No Panel InformationOrdered By: Pepe Ruiz on 09-07-2023 Anti-Nuclear Antibody Screen Negative Negative [facility] Comment on above: Performed at: - [employer] Director: Lobo Das PhD, Phone: [phone] C-Reactive Protein Extended Range < 2.90 mg/L 0.0-3.0 [facility] Comment on above: C-Reactive Protein ( CRP) provides useful information for thediagnosis, therapy and monitoring of inflammatory processesand associated diseases. For the evaluation of Relative Riskfor Cardiovascular Disease, a High Sensitivity CRP (HSCRP)should be ordered. Estimated GFR (MDRD) Amer 76 mL/min >60 [facility] Comment on above: GFR Calc Estimated GFR (MDRD) Non-Af Amer 63 mL/min >60 [facility] Comment on above: Non- GFR Calc Folate 9.10 ng/mL 3.1-55.4 [facility] Hepatitis B Surface Antigen Non-Reactive Nonreactive [facility] Hepatitis C Antibody Non-Reactive Nonreactive [facility] Comment on above: Non Reactive: < 0.8 Equivocal: >/= 0.8 to < 1.0 Reactive: >/= 1.0The CDC requires that a reactive/equivocal HCV antibody result be sent out for confirmation. HCV Quant by PCR testing. Valproic Acid (Depakene) Level 103 ug/mL 50-100 [facility] RBC Auto (Bld) [#/Vol]Ordere d By: Pepe Ruiz on 09-07-2023 RBC (Bld) [#/Vol] 3.30 10*6/uL 4.2-5.4 [facility] Serum cyclic citrullinated p eptide IgG antibody assay (units/volume)Ordered By: Pepe Ruiz on 09-07-2023 Cyclic citrullinated peptide IgG Qn 7 units 0-19 [facility] Comment on above: Negative <20 Weak po sitive 20 - 39 Moderate positive 40 - 59 Strong positive >59Performed at: [facility] [place] [address] [place], [place] [id number] Director: Adamaris Shi MD, Phone: [phone] at: [facility] [employer] [id number] Director: Lobo Das PhD, Phone: [phone] Serum hepatitis B virus surf kwadwo antibody IgG detectionOrdered By: Pepe Ruiz on 09-07-2023 HBV surface IgG Ql (S) Non-Reactive [facility] Comment on above: Non Reactive: Incons istent with immunity less than <10 mIU/mL Reactive: Consistent with immunity greater than or equal to 10 mIU/mL Serum or plasma calcium loretta urement (mass/volume)Ordered By: Pepe Ruiz on 09-07-2023 Calcium [Mass/Vol] 8.4 mg/dL 8.5-10.1 [facility] Serum or plasma creatinine m easurement (mass/volume)Ordered By: Pepe Ruiz on 09-07-2023 Creatinine [Mass/Vol] 0.94 mg/dL 0.55-1.02 [facility] Comment on above: The validity of the calculated GFR & GFRAA in patients over 70 years has not been determined. Clinical correlation is essential. Serum or plasma thiamine kirill surement (mass/volume)Ordered By: Pepe Ruiz on 09-07-2023 Thiamine [Mass/Vol] 109.8 nmol/L 66.5-200.0 [facility] Serum or plasma thyroid stim ulating hormone (TSH) measurement (units/volume)Ordered By: Pepe Ruiz on 09-07-2023 TSH Qn 2.91 uIU/mL 0.358-3.74 [facility] Serum or plasma urea nitroge n measurement (mass/volume)Ordered By: Pepe Ruiz on 09-07-2023 Urea nitrogen [Mass/Vol] 20 mg/dL 7-18 [facility] Thin prep Papanicolaou smear with manual screeningOrdered By: Pepe Ruiz on 09-07-2023 Thin prep Papanicolaou smear with manual screening 2.8 g/dL 3.2-5.0 [facility] Thin prep Papanicolaou smear with manual screening 21 U/L 15-37 [facility] Thin prep Papanicolaou smear with manual screening 5 5-15 [facility] Basophil percentageOrdered B y: Vadim Friend on 08-14-2023 Basophil percentage < 1.0 mg/dL 0.55-1.02 [facility] No Panel InformationOrdered By: Vadim Friend on 08-14-2023 Bedside Estimated GFR (eGFR) > 60.0000 mL/min >60 [facility] Absolute lymphocyte countOrd ered By: Mayda Garcia on 06-17-2023 Lymphocytes Auto (Unsp spec) [#/Vol] 0.86 10*3/uL 0.83-4.51 [facility] Automated lymphocyte count a s percentage of total leukocytesOrdered By: Mayda Garcia on 06-17-2023 Lymphocytes/100 WBC Auto (Unsp spec) 27.2 % 19-41 [facility] Basophil percentageOrdered B y: Mayda Garcia on 06-17-2023 Basophils/100 WBC (Bld) 0.6 % 0-1 [facility] Chloride [Moles/Vol] 112 mmol/L 98-107 [facility] Eosinophils/100 WBC (Bld) 2.8 % 0-5 [facility] Glucose [Mass/Vol] 138 mg/dL 74-106 [facility] Comment on above: Fasting Glucose resu lt greater than or equal to 126 mg/dL suggests DIABETES MELLITUS per A.D.A. criteria. Hemoglobin (Bld) [Mass/Vol] 12.2 g/dL 12.0-15.0 [facility] Monocytes/100 WBC (Bld) 6.0 % 0-10 [facility] Neutrophils (Bld) [#/Vol] 2.0 10*3/uL 2.0-7.7 [facility] Neutrophils/100 WBC (Bld) 63.1 % 47-70 [facility] Potassium [Moles/Vol] 4.1 mmol/L 3.5-5.1 [facility] Sodium [Moles/Vol] 142 mmol/L 136-145 [facility] WBC (Bld) [#/Vol] 3.2 10*3/uL 4.4-11.0 [facility] Determination of erythrocyte mean corpuscular volume (MCV)Ordered By: Mayda Garcia on 06-17-2023 MCV (RBC) [Entitic vol] 99.0 fL 81-99 [facility] Erythrocyte distribution wid th ratioOrdered By: [facility] on 06-17-2023 Erythrocyte distribution width (RBC) [Ratio] 14.3 % 11.6-14.6 [facility] Erythrocyte distribution wid th standard deviationOrdered By: [facility] Ibanezrobson on 06-17-2023 Erythrocyte distribution width (RBC) [Entitic vol] 52.5 fL 35.1-43.9 [facility] Hematocrit Auto (Bld) [Volum e fraction]Ordered By: [facility] Ibanezrobson on 06-17-2023 Hematocrit (Bld) [Volume fraction] 38.8 % 37-47 [facility] Immature granulocytes/100 WB C Auto (Bld)Ordered [facility] Immature granulocytes/100 WBC (Bld) 0.300 % 0.0-0.9 [facility] Comment on above: IG% - Immature Granu locytes (promyelocytes, myelocytes and metamyelocytes) > 1% indicates that a LEFT SHIFT is Present. Laboratory - Chemistry and C hemistry - challengeOrdered By: Mayda Garcia on 06-17-2023 CO2 [Moles/Vol] 26.0 mmol/L 21.0-32.0 [facility] Urea nitrogen/Creatinine [Mass ratio] 27.6 mg/mg 10-20 [facility] Laboratory - Hematology and Cell countsOrdered By: cosme Garcia on 06-17-2023 MCH (RBC) [Entitic mass] 31.1 pg 27.0-32.0 [facility] MCHC (RBC) [Mass/Vol] 31.4 g/dL 32-36 [facility] Nucleated RBC/100 WBC (Bld) [Ratio] 0 % 0-5 [facility] Platelet mean volume (Bld) [Entitic vol] 11.2 fL 6.2-12.0 [facility] Platelets (Bld) [#/Vol] 184 10*3/uL 150-450 [facility] No Panel InformationOrdered By: Mayda Garcia on 06-17-2023 Estimated GFR (MDRD) Amer 87 mL/min >60 [facility] Comment on above: GFR Calc Estimated GFR (MDRD) Non-Af Amer 72 mL/min >60 [facility] Comment on above: Non- GFR Calc RBC Auto (Bld) [#/Vol]Ordere d By: Mayda Garcia on 06-17-2023 RBC (Bld) [#/Vol] 3.92 10*6/uL 4.2-5.4 [facility] Serum or plasma calcium loretta urement (mass/volume)Ordered By: Mayda Garcia on 06-17-2023 Calcium [Mass/Vol] 8.5 mg/dL 8.5-10.1 [facility] Serum or plasma creatinine m easurement (mass/volume)Ordered By: Mayda Garcia on 06-17-2023 Creatinine [Mass/Vol] 0.83 mg/dL 0.55-1.02 [facility] Comment on above: The validity of the calculated GFR & GFRAA in patients over 70 years has not been determined. Clinical correlation is essential. Serum or plasma urea nitroge n measurement (mass/volume)Ordered By: Mayda Garcia on 06-17-2023 Urea nitrogen [Mass/Vol] 23 mg/dL 11-18 [facility] Thin prep Papanicolaou smear with manual screeningOrdered By: Mayda Garcia on 06-17-2023 Thin prep Papanicolaou smear with manual screening 4 09-15 [facility] Whole blood hemoglobin A1c/t otal hemoglobin ratio (mass fraction)Ordered By: Mayda Garcia on 06-17-2023 HbA1c (Bld) [Mass fraction] 6.3 % 3.8-5.6 [facility] Comment on above: Normal < 5.7 % Predi abetic 5.7 - 6.4 % Diabetic >or= 6.5 % Please note range changes. Absolute lymphocyte countOrd ered By: Carlos Bravo on 02-18-2023 Lymphocytes Auto (Unsp spec) [#/Vol] 1.35 10*3/uL 0.83-4.51 [facility] Basophil percentageOrdered B y: Pepe Ruiz on 02-18-2023 Ammonia (P) [Moles/Vol] 42.0 umol/L 11-32 [facility] Basophil percentage 42.0 umol/L 11-32 [facility] Basophil percentageOrdered B y: Carlos Bravo on 02-18-2023 Basophil percentage 96 mg/dL 74-106 [facility] Basophil percentage 7.4 g/dL 6.4-8.2 [facility] Basophil percentage 0.30 mg/dL 0.20-1.00 [facility] Basophil percentage 141 mmol/L 136-145 [facility] Basophil percentage 3.6 mmol/L 3.5-5.1 [facility] Basophil percentage 108 mmol/L 98-107 [facility] Basophils (Bld) [#/Vol] 5.6 10*3/uL 4.4-11.0 [facility] Basophils (Bld) [#/Vol] 3.4 10*3/uL 2.0-7.7 [facility] Basophils/100 WBC (Bld) 60.8 % 47-70 [facility] Basophils/100 WBC (Bld) 6.3 % 0-5 [facility] Basophils/100 WBC (Bld) 0.4 % 0-1 [facility] Bilirubin [Mass/Vol] 0.30 mg/dL 0.20-1.00 [facility] Comment on above: For patients on eltr ombopag therapy, use of Dimension [place] TBIL is not recommended. Chloride [Moles/Vol] 108 mmol/L 98-107 [facility] Eosinophils/100 WBC (Bld) 6.3 % 0-5 [facility] Glucose [Mass/Vol] 96 mg/dL 74-106 [facility] Neutrophils (Bld) [#/Vol] 3.4 10*3/uL 2.0-7.7 [facility] Neutrophils/100 WBC (Bld) 60.8 % 47-70 [facility] Potassium [Moles/Vol] 3.6 mmol/L 3.5-5.1 [facility] Protein [Mass/Vol] 7.4 g/dL 6.4-8.2 [facility] Sodium [Moles/Vol] 141 mmol/L 136-145 [facility] WBC (Bld) [#/Vol] 5.6 10*3/uL 4.4-11.0 [facility] Blood erythrocytes count (nu mber/volume)Ordered By: Carlos Bravo on 02-18-2023 RBC (Bld) [#/Vol] 3.67 10*6/uL 4.2-5.4 [facility] Blood hemoglobin measurement (mass/volume)Ordered By: Carlos Bravo on 02-18-2023 Hemoglobin (Bld) [Mass/Vol] 11.2 g/dL 12.0-15.0 [facility] Blood lymphocytes/100 leukoc ytesOrdered By: Carlos Bravo on 02-18-2023 Lymphocytes/100 WBC (Bld) 24.1 % 19-41 [facility] Blood monocytes/100 leukocyt esOrdered By: Carlos Bravo on 02-18-2023 Monocytes/100 WBC (Bld) 8.2 % 0-10 [facility] Blood platelet mean volumeOr dered By: Carlos Bravo on 02-18-2023 Platelet mean volume (Bld) [Entitic vol] 10.9 fL 6.2-12.0 [facility] Determination of erythrocyte mean corpuscular volume (MCV)Ordered By: Carlos Bravo on 02-18-2023 MCV (RBC) [Entitic vol] 96.7 fL 81-99 [facility] Hematocrit Auto (Bld) [Volum e fraction]Ordered By: Carlos Bravo on 02-18-2023 Hematocrit (Bld) [Volume fraction] 35.5 % 37-47 [facility] Laboratory - Chemistry and C hemistry - challengeOrdered By: Carlos Bravo on 02-18-2023 ALP [Catalytic activity/Vol] 79 U/L 45-117 [facility] ALT [Catalytic activity/Vol] 13 U/L 13-56 [facility] CO2 [Moles/Vol] 24.0 mmol/L 21.0-32.0 [facility] Free T4 [Mass/Vol] 1.01 ng/dL 0.76-1.46 [facility] Globulin (S) [Mass/Vol] 4.8 g/dL 2.2-4.2 [facility] Natriuretic peptide B (Bld) [Mass/Vol] 26.8 pg/mL 0-100 [facility] Urea nitrogen/Creatinine [Mass ratio] 17.6 mg/mg 10- [facility] Laboratory - Hematology and Cell countsOrdered By: Carlos Bravo on 02-18-2023 Erythrocyte distribution width (RBC) [Entitic vol] 52.1 fL 35.1-43.9 [facility] Erythrocyte distribution width (RBC) [Ratio] 14.6 % 11.6-14.6 [facility] Immature granulocytes/100 WBC (Bld) 0.200 % 0.0-0.9 [facility] Comment on above: IG% - Immature Granu locytes (promyelocytes, myelocytes and metamyelocytes) > 1% indicates that a LEFT SHIFT is Present. MCH (RBC) [Entitic mass] 30.5 pg 27.0-32.0 [facility] Nucleated RBC/100 WBC (Bld) [Ratio] 0 % 0-5 [facility] MCHC Auto (RBC) [Mass/Vol]Or dered By: Carlos Bravo on 02-18-2023 MCHC (RBC) [Mass/Vol] 31.5 g/dL 32-36 [facility] No Panel InformationOrdered By: Carlos Bravo on 02-18-2023 Estimated GFR (MDRD) Amer 92 mL/min >60 [facility] Comment on above: GFR Calc Estimated GFR (MDRD) Non-Af Amer 76 mL/min >60 [facility] Comment on above: Non- GFR Calc Thyroid Stimulating Hormone (TSH) 3.45 uIU/mL 0.358-3.74 [facility] 30.5 pg 27.0-32.0 [facility] 14.6 % 11.6-14.6 [facility] 52.1 fl 35.1-43.9 [facility] 0.200 % 0.0-0.9 [facility] 0 % 0-5 [facility] 76 mL/min >60 [facility] 92 mL/min >60 [facility] 17.6 RATIO 10- [facility] 4.8 g/dL 2.2-4.2 [facility] 79 U/L 45-117 [facility] 13 U/L 13-56 [facility] 24.0 mmol/L 21.0-32.0 [facility] 3.45 uIU/mL 0.358-3.74 [facility] 26.8 pg/mL 0-100 [facility] 1.01 ng/dL 0.76-1.46 [facility] No Panel InformationOrdered By: Pepe Ruiz on 02-18-2023 Valproic Acid (Depakene) Level 103 ug/mL 50-100 [facility] Whole Blood Vitamin B1 Level 106.4 nmol/L 66.5-200.0 [facility] Comment on above: Performed at: [employer] [address] [id number] Director: Adamaris Shi MD, Phone: [phone] 103 ug/mL 50-100 [facility] 106.4 nmol/L 66.5-200.0 [facility] Platelets bldOrdered By: Aj Bravo on 02-18-2023 Platelets (Bld) [#/Vol] 251 10*3/uL 150-450 [facility] Serum or plasma albumin loretta urement (mass/volume)Ordered By: Carlos Bravo on 02-18-2023 Albumin [Mass/Vol] 2.6 g/dL 3.2-5.0 [facility] Serum or plasma albumin/glob ulin mass ratioOrdered By: Carlos Bravo on 02-18-2023 Albumin/Globulin [Mass ratio] 0.5 {ratio} 0.9-2.4 [facility] Serum or plasma calcium loretta urement (mass/volume)Ordered By: Carlos Bravo on 02-18-2023 Calcium [Mass/Vol] 8.7 mg/dL 8.5-10.1 [facility] Serum or plasma creatinine m easurement (mass/volume)Ordered By: Carlos Bravo on 02-18-2023 Creatinine [Mass/Vol] 0.80 mg/dL 0.55-1.02 [facility] Comment on above: The validity of the calculated GFR & GFRAA in patients over 70 years has not been determined. Clinical correlation is essential. Serum or plasma urea nitroge n measurement (mass/volume)Ordered By: Carlos Bravo on 02-18-2023 Urea nitrogen [Mass/Vol] 14 mg/dL 11-18 [facility] Thin prep Papanicolaou smear with manual screeningOrdered By: Carlos Bravo on 02-18-2023 Thin prep Papanicolaou smear with manual screening 11 U/L 15-37 [facility] Thin prep Papanicolaou smear with manual screening 9 5-15 [facility] Iron measurement (mass/mass) Ordered By: Mayda Garcia on 02-04-2023 Iron (Unsp spec) [Mass/Mass] 41 ug/dL 50-170 [facility] Laboratory - Chemistry and C hemistry - challengeOrdered By: Mayda Garcia on 02-04-2023 Cobalamin (Vitamin B12) [Mass/Vol] 262 pg/mL 211- [facility] No Panel InformationOrdered By: Mayda Garcia on 02-04-2023 Total Iron Binding Capacity 217 ug/dL 250-450 [facility] 262 pg/mL [facility] 217 ug/dL 250-450 [facility] Serum or plasma ferritin kirill surement (mass/volume)Ordered By: Mayda Garcia on 02-04-2023 Ferritin [Mass/Vol] 364 ng/mL 8-252 [facility] Serum or plasma folate measu rement (mass/volume)Ordered By: Mayda Garcia on 02-04-2023 Folate [Mass/Vol] 17.40 ng/mL 3.1-55.4 [facility] Absolute lymphocyte countOrd ered By: Robbin Carlos on 01-26-2023 Lymphocytes Auto (Unsp spec) [#/Vol] 1.96 10*3/uL 0.83-4.51 [facility] Basophil percentageOrdered B y: Robbin Carlos on 01-26-2023 Basophil percentage 85 mg/dL 74-106 [facility] Basophil percentage 140 mmol/L 136-145 [facility] Basophil percentage 3.9 mmol/L 3.5-5.1 [facility] Basophil percentage 108 mmol/L 98-107 [facility] Basophils (Bld) [#/Vol] 4.8 10*3/uL 4.4-11.0 [facility] Basophils (Bld) [#/Vol] 2.2 10*3/uL 2.0-7.7 [facility] Basophils/100 WBC (Bld) 0.6 % 0-1 [facility] Basophils/100 WBC (Bld) 46.3 % 47-70 [facility] Basophils/100 WBC (Bld) 3.3 % 0-5 [facility] Chloride [Moles/Vol] 108 mmol/L 98-107 [facility] Eosinophils/100 WBC (Bld) 3.3 % 0-5 [facility] Glucose [Mass/Vol] 85 mg/dL 74-106 [facility] Neutrophils (Bld) [#/Vol] 2.2 10*3/uL 2.0-7.7 [facility] Neutrophils/100 WBC (Bld) 46.3 % 47-70 [facility] Potassium [Moles/Vol] 3.9 mmol/L 3.5-5.1 [facility] Sodium [Moles/Vol] 140 mmol/L 136-145 [facility] WBC (Bld) [#/Vol] 4.8 10*3/uL 4.4-11.0 [facility] Blood erythrocytes count (nu mber/volume)Ordered By: Robbin Carlos on 01-26-2023 RBC (Bld) [#/Vol] 3.21 10*6/uL 4.2-5.4 [facility] Blood hemoglobin measurement (mass/volume)Ordered By: Robbin Carlos on 01-26-2023 Hemoglobin (Bld) [Mass/Vol] 9.9 g/dL 12.0-15.0 [facility] Blood lymphocytes/100 leukoc ytesOrdered By: Robbin Carlos on 01-26-2023 Lymphocytes/100 WBC (Bld) 41.0 % 19-41 [facility] Blood monocytes/100 leukocyt esOrdered By: Robbin Carlos on 01-26-2023 Monocytes/100 WBC (Bld) 8.4 % 0-10 [facility] Blood platelet mean volumeOr dered By: Robbin Carlos on 01-26-2023 Platelet mean volume (Bld) [Entitic vol] 11.4 fL 6.2-12.0 [facility] Determination of erythrocyte mean corpuscular volume (MCV)Ordered By: Robbin Carlos on 01-26-2023 MCV (RBC) [Entitic vol] 96.3 fL 81-99 [facility] Hematocrit Auto (Bld) [Volum e fraction]Ordered By: Robbin Carlos on 01-26-2023 Hematocrit (Bld) [Volume fraction] 30.9 % 37-47 [facility] Laboratory - Chemistry and C hemistry - challengeOrdered By: Robbin Carlos on 01-26-2023 CO2 [Moles/Vol] 27.0 mmol/L 21.0-32.0 [facility] Urea nitrogen/Creatinine [Mass ratio] 17.4 mg/mg 10-20 [facility] Laboratory - Hematology and Cell countsOrdered By: Robbin Carlos on 01-26-2023 Erythrocyte distribution width (RBC) [Entitic vol] 51.8 fL 35.1-43.9 [facility] Erythrocyte distribution width (RBC) [Ratio] 14.6 % 11.6-14.6 [facility] Immature granulocytes/100 WBC (Bld) 0.400 % 0.0-0.9 [facility] Comment on above: IG% - Immature Granu locytes (promyelocytes, myelocytes and metamyelocytes) > 1% indicates that a LEFT SHIFT is Present. MCH (RBC) [Entitic mass] 30.8 pg 27.0-32.0 [facility] Nucleated RBC/100 WBC (Bld) [Ratio] 0 % 0-5 [facility] MCHC Auto (RBC) [Mass/Vol]Or dered By: Robbin Carlos on 01-26-2023 MCHC (RBC) [Mass/Vol] 32.0 g/dL 32-36 [facility] No Panel InformationOrdered By: Robbin Carlos on 01-26-2023 Estimated Creatinine Clearance Calc 41.40 ml/min [facility] Estimated GFR (MDRD) Amer 99 mL/min >60 [facility] Comment on above: GFR Calc Estimated GFR (MDRD) Non-Af Amer 82 mL/min >60 [facility] Comment on above: Non- GFR Calc 30.8 pg 27.0-32.0 [facility] 14.6 % 11.6-14.6 [facility] 51.8 fl 35.1-43.9 [facility] 0.400 % 0.0-0.9 [facility] 0 % 0-5 [facility] 82 mL/min >60 [facility] 99 mL/min >60 [facility] 41.40 ml/min [facility] 17.4 RATIO 10-20 [facility] 27.0 mmol/L 21.0-32.0 [facility] Platelets bldOrdered By: Robbin Carlos on 01-26-2023 Platelets (Bld) [#/Vol] 149 10*3/uL 150-450 [facility] Serum or plasma calcium loretta urement (mass/volume)Ordered By: Robbin Carlos on 01-26-2023 Calcium [Mass/Vol] 8.5 mg/dL 8.5-10.1 [facility] Serum or plasma creatinine m easurement (mass/volume)Ordered By: Robbin Carlos on 01-26-2023 Creatinine [Mass/Vol] 0.75 mg/dL 0.55-1.02 [facility] Comment on above: The validity of the calculated GFR & GFRAA in patients over 70 years has not been determined. Clinical correlation is essential. Serum or plasma urea nitroge n measurement (mass/volume)Ordered By: Robbin Carlos on 01-26-2023 Urea nitrogen [Mass/Vol] 13 mg/dL 7-18 [facility] Thin prep Papanicolaou smear with manual screeningOrdered By: Robbin Carlos on 01-26-2023 Thin prep Papanicolaou smear with manual screening 5 5-15 [facility] Basophil percentageOrdered B y: Robbin Carlos on 01-22-2023 Basophil percentage 6.4 g/dL 6.4-8.2 [facility] Basophil percentage 0.20 mg/dL 0.20-1.00 [facility] Bilirubin [Mass/Vol] 0.20 mg/dL 0.20-1.00 [facility] Comment on above: For patients on eltr ombopag therapy, use of Dimension [place] TBIL is not recommended. Protein [Mass/Vol] 6.4 g/dL 6.4-8.2 [facility] Laboratory - Chemistry and C hemistry - challengeOrdered By: Robbin Carlos on 01-22-2023 ALP [Catalytic activity/Vol] 102 U/L 45-117 [facility] ALT [Catalytic activity/Vol] 28 U/L - [facility] Globulin (S) [Mass/Vol] 3.9 g/dL 2.2-4.2 [facility] No Panel InformationOrdered By: Robbin Carlos on 01-22-2023 3.9 g/dL 2.2-4.2 [facility] 102 U/L 45-117 [facility] 28 U/L [facility] Serum or plasma albumin loretta urement (mass/volume)Ordered By: Robbin Carlos on 01-22-2023 Albumin [Mass/Vol] 2.5 g/dL 3.2-5.0 [facility] Serum or plasma albumin/glob ulin mass ratioOrdered By: Robbin Carlos on 01-22-2023 Albumin/Globulin [Mass ratio] 0.6 {ratio} 0.9-2.4 [facility] Thin prep Papanicolaou smear with manual screeningOrdered By: Robbin Carlos on 01-22-2023 Thin prep Papanicolaou smear with manual screening 26 U/L 15-37 [facility] Whole blood hemoglobin A1c/t otal hemoglobin ratio (mass fraction)Ordered By: Robbin Carlos on 01-22-2023 HbA1c (Bld) [Mass fraction] 6.4 % 3.8-5.6 [facility] Comment on above: Normal < 5.7 % Predi abetic 5.7 - 6.4 % Diabetic >or= 6.5 % Please note range changes. SARS-CoV-2 (COVID-19) Ag IA. rapid Ql (Resp)Ordered By: Robbin Carlos on 01-21-2023 COVID-19 virus antigen assay SARS-CoV-2 (COVID 19) [facility] SARS-CoV-2 Antigen (Rapid) SARS-CoV-2 (COVID 19) [facility] COVID-19 virus antigen assay SARS-CoV-2 (COVID 19) [facility] Glucose Glucometer (BldC) [M ass/Vol]Ordered By: Robbin Carlos on 01-18-2023 Glucose [Mass/Vol] 72 mg/dL 74-106 [facility] Comment on above: MANAGEMENT OF PATIEN T CARE PER NURSING PROTOCOL POCT glucose meteron 023 Glucose [Mass/Vol] 98 mg/dL 70 - 100 mg/dL [facility] Interpretation and review of laboratory results Normal [facility] Health Performed by: [facility], [address] [place] [address] CLIA ID: [id number] [facility] [employer] POCT glucose meteron 023 Glucose [Mass/Vol] 98 mg/dL 70 - 100 mg/dL [facility] Interpretation and review of laboratory results Normal [facility] Performed by: [facility], [address] [place] [address] CLIA ID: [id number] [facility] POCT glucose meteron 023 Glucose [Mass/Vol] 157 mg/dL High 70 - 100 mg/dL [facility] Interpretation and review of laboratory results Abnormal [facility] Performed by: [facility], [address] [place] [address] CLIA ID: [id number] [facility] Glucose [Mass/Vol] 113 mg/dL High 70 - 100 mg/dL [facility] Interpretation and review of laboratory results Abnormal [facility] Performed by: [facility], [address] [place] [address] CLIA ID: [id number] [facility] XR Chest Single viewon 01-08 [facility] 1950 [id number] Exam Date/Time: 01/08/2023 05:19 Procedure: XR CHEST [...] MD Electronically Signed Date/Time: 01/08/2023 7:43 AM [facility] Gómez Calvert MD - 01/08/2023 Patient Name: [facility]AC[facility]ADO [facility] 1950 [id number] Exam Date/Time: 01/08/2023 05:19 Procedure: XR CHEST [...] Electronically Signed Date/Time: 01/08/2023 7:43 AM EDT [facility] Radiology Study observation (narrative) [facility] Basic metabolic 1998 panelon 01-07-2023 Anion gap [Moles/Vol] 9 mmol/L 3 - 13 mmol/L [facility] Calcium [Mass/Vol] 8.5 mg/dL 8.4 - 10. 4 mg/dL [facility] Chloride [Moles/Vol] 101 mmol/L 98 - 10 7 mmol/L [facility] CO2 [Moles/Vol] 27 mmol/L 22 - 30 mmol/L [facility] Creatinine [Mass/Vol] 0.91 mg/dL 0.52 - 1.04 mg/dL [facility] GFR/1.73 sq M.predicted MDRD (S/P/Bld) [Vol rate/Area] 68.0 mL/min/{1.73_m2} - PINF [facility] Comment on above: Calculation based on the Chronic Kidney Disease Epidemiology Collaboration (CKD-EPI) equation refit without adjustment for race Glucose [Mass/Vol] 83 mg/dL 70 - 100 mg/dL [facility] Potassium [Moles/Vol] 4.2 mmol/L 3.5 - 5.1 mmol/L [facility] Sodium [Moles/Vol] 137 mmol/L 135 - 145 mmol/L [facility] Urea nitrogen [Mass/Vol] 30 mg/dL High 7 - 17 mg/dL [facility] CBC panel Auto (Bld)Ordered By: Ekaterina Fountain on 01-07-2023 Erythrocyte distribution width (RBC) [Ratio] 15.8 % High 11.5 - 14.5 % [facility] Hematocrit (Bld) [Volume fraction] 30.0 % Low 35.0 - 47.0 % [facility] Hemoglobin (Bld) [Mass/Vol] 10.3 g/dL Low 11.7 - 16.0 g/dL [facility] Interpretation and review of laboratory results Abnormal [facility] MCH (RBC) [Entitic mass] 32.0 pg 26.0 - 34.0 pg [facility] MCHC (RBC) [Mass/Vol] 34.2 % 32.0 - 36.0 % [facility] MCV (RBC) [Entitic vol] 93.7 fL 80.0 - 98.0 fL [facility] Platelet mean volume (Bld) [Entitic vol] 9.1 fL 7.4 - 12.4 fL [facility] Platelets (Bld) [#/Vol] 162 10*3/uL 140 - 440 10*3/uL [facility] RBC (Bld) [#/Vol] 3.21 10*6/uL Low 3.8 - 5.20 10*6/uL [facility] WBC (Bld) [#/Vol] 5.4 10*3/uL 3.6 - 10.7 10*3/uL [facility] Magnesiumon 01-07-2023 Magnesium [Mass/Vol] 2.4 mg/dL High 1.6 - 2 .3 mg/dL [facility] No Panel Informationon 01-07 Interpretation and review of laboratory results Abnormal [facility] POCT glucose meteron 023 Glucose [Mass/Vol] 102 mg/dL High 70 - 100 mg/dL [facility] Interpretation and review of laboratory results Abnormal [facility]formed by: [facility], [address] [place] [address] CLIA ID: [id number] [facility] Glucose [Mass/Vol] 118 mg/dL High 70 - 100 mg/dL [facility] Interpretation and review of laboratory results Abnormal [facility] Performed by: [facility], [address] [place] [address] CLIA ID: [id number] [facility] Glucose [Mass/Vol] 124 mg/dL High 70 - 100 mg/dL [facility] Interpretation and review of laboratory results Abnormal [facility] Performed by: [facility], [address] [place] [address] CLIA ID: [id number] [employer] Progress Noteon 01-07-2023 Progress Note Department of [employer] [facility] Medicine Division of Endocrinology, Diabetes, & Metabolism Endocrinology Note Patient Name: Lacy Alvarado : 1950 AGE: 72 y.o. Room/Bed: T1-103/T1-103 A Admission Date: 01/01/2023 Visit Date: 01/07/2023 Reason for Endocrine Consult: post op heart Provider/Team Requesting Consult: edwin PCP: MAYDA GARCIA Outpt High Density Finishing Operator: No ASSESSMENT: DM 2 with hyperglycemia without half-way insulin Stress hyperglycemia CAD s/p Cabgx4 PLAN: [...] Oral, Daily (more content not included)... Normal [facility] Progress Note Physical Therapy Facility/Department: [facility] Physical Therapy Daily Treatment Note NAME: Lacy Alvarado : 1950 Date of Service: 01/07/2023 Discharge Recommendations: IP Rehab, [facility] PT Equipment Recommendations Equipment Needed: No [...] The primary encounter diagnosis was CAD in [place] artery. A diagnosis of Coronary artery disease involving coronary bypass graft, unspecified whether angina present, unspecified whether [place] or transplanted heart was also pertinent to this visit. has a past medical history of CHF (congestive heart failure) (CMS/HCC) ([facility]), Diabetes mellitus ([facility]), GERD (gastroesophageal reflux disease), Hyperlipidemia, Hypertension, RA (rheumatoid arthritis) ([facility]), Seizure ([facility]), Seizures ([facility]), and Sleep apnea. has a past surgical [...] / Caregiver Present: No Diagnosis: CAD in [place] artery s/p CABG on 01/01 Follows Commands: [...] for pur (more content not included)... Normal [facility] XR CHEST 1 VIEWon 01-07-2023 XR CHEST [...] Signed Date/Time: 01/07/2023 7:57 AM EDT Normal [facility] XR Chest Single viewon 01-07 Impression: As above. Report Dictated on Electronically Signed By: Nely Pierce MD Electronically Signed Date/Time: 01/07/2023 7:57 AM EDT [facility] Patient Name: LACY SAVAGE : 1950 Exam Date/Time: 01/07/2023 05:18 Procedure: XR CHEST 1 VIEW Ordering Provider: WEAVER JENNIFER Reason For Exam: Shortness of breath Examination: Portable chest Indication: Shortness of breath Comparison: Previous day Findings: The cardiac silhouette is enlarged with median sternotomy changes. Suspect small pleural effusions. No gross consolidation or sizable infiltrate noted. No sizable pneumothorax. [facility] Nely Pierce MD - 01/07/2023 Patient Name: [...] Electronically Signed Date/Time: 01/07/2023 7:57 AM EDT [facility] Radiology Study observation (narrative) [facility] XR Chest Single viewOrdered By: Nely Pierce on 01-07-2023 [facility] [employer] Work Phone: Basic metabolic 1998 panelon 01-06-2023 Anion gap [Moles/Vol] 11 mmol/L 3 - 13 mmol/L [facility] Calcium [Mass/Vol] 8.6 mg/dL 8.4 - 10. 4 mg/dL [facility] Chloride [Moles/Vol] 98 mmol/L 98 - 10 7 mmol/L [facility] CO2 [Moles/Vol] 27 mmol/L 22 - 30 mmol/L [facility] Creatinine [Mass/Vol] 0.99 mg/dL 0.52 - 1.04 mg/dL [facility] GFR/1.73 sq M.predicted MDRD (S/P/Bld) [Vol rate/Area] 61.5 mL/min/{1.73_m2} - PINF [facility] Comment on above: Calculation based on the Chronic Kidney Disease Epidemiology Collaboration (CKD-EPI) equation refit without adjustment for race Glucose [Mass/Vol] 95 mg/dL 70 - 100 mg/dL [facility] Potassium [Moles/Vol] 3.9 mmol/L 3.5 - 5.1 mmol/L [facility] Sodium [Moles/Vol] 136 mmol/L 135 - 145 mmol/L [facility] Urea nitrogen [Mass/Vol] 39 mg/dL High 7 - 17 mg/dL [facility] 01-06[facility]2023 [facility] unable to accept patient, too functional. Updated patient at bedside and alyssa Holloway (HCPOA) over the phone. Declined SNF at this time, would like to plan discharge home with HHC including PT/OT/SN/NURSING EDUCATION CONSULTANT if possible. Will updated [facility] PACC, CTS APPRAISER AUDITOR aware. Normal [facility] CBC panel Auto (Bld)Ordered By: Farhat Curtis on 01-06-2023 Erythrocyte distribution width (RBC) [Ratio] 16.2 % High 11.5 - 14.5 % [facility] Hematocrit (Bld) [Volume fraction] 30.7 % Low 35.0 - 47.0 % [facility] Hemoglobin (Bld) [Mass/Vol] 10.2 g/dL Low 11.7 - 16.0 g/dL [facility] Interpretation and review of laboratory results Abnormal [facility] MCH (RBC) [Entitic mass] 31.7 pg 26.0 - 34.0 pg [facility] MCHC (RBC) [Mass/Vol] 33.3 % 32.0 - 36.0 % [facility] MCV (RBC) [Entitic vol] 95.3 fL 80.0 - 98.0 fL [facility] Platelet mean volume (Bld) [Entitic vol] 9.2 fL 7.4 - 12.4 fL [facility] Platelets (Bld) [#/Vol] 141 10*3/uL 140 - 440 10*3/uL [facility] RBC (Bld) [#/Vol] 3.22 10*6/uL Low 3.8 - 5.20 10*6/uL [facility] WBC (Bld) [#/Vol] 5.6 10*3/uL 3.6 - 10.7 10*3/uL [facility] Magnesiumon 01-06-2023 Magnesium [Mass/Vol] 2.7 mg/dL High 1.6 - 2 .3 mg/dL [facility] No Panel Informationon 01-06 Interpretation and review of laboratory results Abnormal [facility] POCT glucose meteron 023 Glucose [Mass/Vol] 106 mg/dL High 70 - 100 mg/dL [facility] Interpretation and review of laboratory results Abnormal [facility] Performed by: [facility], [address] [place] [address] CLIA ID: [id number] [facility] Glucose [Mass/Vol] 97 mg/dL 70 - 100 mg/dL [facility] Interpretation and review of laboratory results Normal [facility] Performed by: [facility], [address] [place] [address] CLIA ID: [id number] [facility] Glucose [Mass/Vol] 109 mg/dL High 70 - 100 mg/dL [facility] Interpretation and review of laboratory results Abnormal [facility] Performed by: [facility], [address] [place] [address] CLIA ID: [id number] [facility] Progress Noteon 01-06-2023 Progress Note [...] The primary encounter diagnosis was CAD in [place] artery. A diagnosis of Coronary artery disease involving coronary bypass graft, unspecified whether angina present, unspecified whether [place] or transplanted heart was also pertinent to this visit. has a past medical history of CHF (congestive heart failure) ([facility]/HCC) ([facility]), Diabetes mellitus ([facility]), GERD (gastroesophageal reflux disease), Hyperlipidemia, Hypertension, RA (rheumatoid arthritis) ([facility]), Seizure ([facility]), Seizures ([facility]), and Sleep apnea. has a past surgical [...] System SHS Progress Note Physical Therapy Facility/Department: [facility] Physical Therapy Daily Treatment Note [...] The primary encounter diagnosis was CAD in [place] artery. A diagnosis of Coronary artery disease involving coronary bypass graft, unspecified whether angina present, unspecified whether [place] or transplanted heart was also pertinent to this visit. has a past medical history of CHF (congestive heart failure) ([facility]/HCC) ([facility]), Diabetes mellitus ([facility]), GERD (gastroesophageal reflux disease), Hyperlipidemia, Hypertension, RA (rheumatoid arthritis) ([facility]), Seizure ([facility]), Seizures ([facility]), and Sleep apnea. has a past surgical [...] / Caregiver Present: No Diagnosis: CAD in [place] artery s/p CABG on 01/01 Follows Commands: [...] Restraints Init (more content not included)... Normal [facility] Progress Note ---- -------- Attestation signed by [...] of service: 01/06/23 Discussed with: []Residents[x]Patient/Fa danny [x]KARINA []Consultants [x]SW/TCC[]Other [x]SONYA Personally Reviewed: [x]Epic [...] Milian. Patient was admitted on 12/18/22 to [facility] with CP history of CHF, CAD, [...] [x] N (more content not included)... Normal [facility] XR CHEST 1 VIEWon 01-06-2023 XR CHEST 1 VIEW [facility] Name: [facility] 1950 [id number] Exam Date/Time: 01/06/2023 05:16 Procedure: XR CHEST [...] Electronically Signed Date/Time: 01/06/2023 9:27 AM EDT [facility] XR Chest Single viewon 01-06 Layering right effus ion. Atelectasis of the left base. Report Dictated on Electronically Signed By: Eyad Cohen DO Electronically Signed Date/Time: 01/06/2023 9:27 AM EDT [facility] Patient Name: LACY SAVAGE : [...] patient has undergone prior open heart surgery. [facility] Eyad Cohen DO - 01/06/2023 [...] Electronically Signed Date/Time: 01/06/2023 9:27 AM EDT [facility] Radiology Study observation (narrative) [employer] XR Chest Single viewOrdered By: Eyad Cohen on 01-06-2023 [employer] Work Phone: Basic metabolic 1998 panelon 01-05-2023 Anion gap [Moles/Vol] 11 mmol/L 3 - 13 mmol/L [facility] Calcium [Mass/Vol] 8.5 mg/dL 8.4 - 10. 4 mg/dL [facility] Chloride [Moles/Vol] 98 mmol/L 98 - 10 7 mmol/L [facility] CO2 [Moles/Vol] 27 mmol/L 22 - 30 mmol/L [facility] Creatinine [Mass/Vol] 1.25 mg/dL High 0.52 - 1.04 mg/dL [facility] GFR/1.73 sq M.predicted MDRD (S/P/Bld) [Vol rate/Area] 46.5 mL/min/{1.73_m2} Low - PINF [facility] Comment on above: Calculation based on the Chronic Kidney Disease Epidemiology Collaboration (CKD-EPI) equation refit without adjustment for race Glucose [Mass/Vol] 98 mg/dL 70 - 100 mg/dL [facility] Potassium [Moles/Vol] 3.8 mmol/L 3.5 - 5.1 mmol/L [facility] Sodium [Moles/Vol] 137 mmol/L 135 - 145 mmol/L [facility] Urea nitrogen [Mass/Vol] 43 mg/dL High 7 - 17 mg/dL [facility] CBC panel Auto (Bld)on 01-05 Erythrocyte distribution width (RBC) [Ratio] 16.0 % High 11.5 - 14.5 % [facility] Hematocrit (Bld) [Volume fraction] 28.7 % Low 35.0 - 47.0 % [facility] Hemoglobin (Bld) [Mass/Vol] 9.9 g/dL Low 11.7 - 16.0 g/dL [facility] Interpretation and review of laboratory results Abnormal [facility] MCH (RBC) [Entitic mass] 32.1 pg 26.0 - 34.0 pg [facility] MCHC (RBC) [Mass/Vol] 34.3 % 32.0 - 36.0 % [facility] MCV (RBC) [Entitic vol] 93.5 fL 80.0 - 98.0 fL [facility] Platelet mean volume (Bld) [Entitic vol] 9.9 fL 7.4 - 12.4 fL [facility] Platelets (Bld) [#/Vol] 114 10*3/uL Low 140 - 440 10*3/uL [facility] RBC (Bld) [#/Vol] 3.07 10*6/uL Low 3.8 - 5.20 10*6/uL [facility] WBC (Bld) [#/Vol] 6.7 10*3/uL 3.6 - 10.7 10*3/uL [facility] Magnesiumon 01-05-2023 Magnesium [Mass/Vol] 2.8 mg/dL High 1.6 - 2 .3 mg/dL [facility] No Panel Informationon 01-05 Interpretation and review of laboratory results Abnormal [facility] Blood Expiration Date [id number] [facility] Crossmatch interpretation COMP [facility] Dispense Status Released from Crossmatch [facility] Product Blood Type 5100 [facility] PRODUCT CODE [id number] [facility] Unit ABO O [facility] Unit RH Positive [facility] Unit Volume 300 mL [facility] POCT glucose meteron 023 Glucose [Mass/Vol] 105 mg/dL High 70 - 100 mg/dL [facility] Interpretation and review of laboratory results Abnormal [facility] Performed by: [facility], [address] [place] [address] CLIA ID: [id number] [facility] Glucose [Mass/Vol] 110 mg/dL High 70 - 100 mg/dL [facility] Interpretation and review of laboratory results Abnormal [facility] Performed by: [facility], [address] [place] [address] CLIA ID: [id number] [employer] RBC: 2 Unitson 01-05 Unit Number [id number] [facility] Unit Number [id number] [employer] Progress Noteon 01-05-2023 Progress Note Department of [employer] [facility] [facility] Medicine Division of Endocrinology, Diabetes, & Metabolism Endocrinology Note Patient Name: Lacy Alvarado : 1950 AGE: 72 y.o. Room/Bed: T1103/[facility]103 A Admission Date: 01/01/2023 Visit Date: 01/05/2023 Reason for Endocrine Consult: post op heart Provider/Team Requesting Consult: cts PCP: MAYDA GARCIA Outpt High Density Finishing Operator: No ASSESSMENT: DM 2 with hyperglycemia without half-way insulin Stress hyperglycemia CAD s/p Cabgx4 PLAN: [...] polyethylene gly (more content not included)... Normal [facility] Progress Note ---- -------- Attestation signed by [...] Milian. 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 Patient also had an echo done which showed mild (1+) tricuspid valve insufficiency." Dr Rose office note 12/23/2022. She presents [...] Temporal BMI (Calculated): 32 BMP: Recent Labs 01/03/231301/04/23 0309 01/05/23 0041 NA 136 135 137 [...] lasix today. (more content not included)... Normal [facility] XR CHEST 1 VIEWon 01-05-2023 XR CHEST 1 VIEW [facility] Name: [facility] 1950 [id number] Exam Date/Time: 01/05/2023 05:19 Procedure: XR CHEST [...] Electronically Signed Date/Time: 01/05/2023 5:37 AM EDT [facility] XR Chest Single viewon 01-05 See findings. Report Dictated on Electronically Signed By: Jake Vasquez MD Electronically Signed Date/Time: 01/05/2023 5:37 AM EDT [facility] [facility] Patient Name: LACY SAVAGE : [...] unremarkable. Bones: No acute osseous process identified. [facility] Jake Vasquez MD - 01/05/2023 Patient Name: [...] Electronically Signed Date/Time: 01/05/2023 5:37 AM EDT [facility] Radiology Study observation (narrative) [employer] [facility] XR Chest Single viewOrdered By: Jake Vasquez on 01-05-2023 [employer] Work Phone: Basic metabolic 1998 panelon 01-04-2023 Anion gap [Moles/Vol] 8 mmol/L 3 - 13 mmol/L [facility] Calcium [Mass/Vol] 8.5 mg/dL 8.4 - 10. 4 mg/dL [facility] Chloride [Moles/Vol] 100 mmol/L 98 - 10 7 mmol/L [facility] CO2 [Moles/Vol] 26 mmol/L 22 - 30 mmol/L [facility] Creatinine [Mass/Vol] 1.11 mg/dL High 0.52 - 1.04 mg/dL [facility] GFR/1.73 sq M.predicted MDRD (S/P/Bld) [Vol rate/Area] 53.6 mL/min/{1.73_m2} Low - PINF [facility] Comment on above: Calculation based on the Chronic Kidney Disease Epidemiology Collaboration (CKD-EPI) equation refit without adjustment for race Glucose [Mass/Vol] 97 mg/dL 70 - 100 mg/dL [facility] Potassium [Moles/Vol] 3.9 mmol/L 3.5 - 5.1 mmol/L [facility] Sodium [Moles/Vol] 135 mmol/L 135 - 145 mmol/L [facility] Urea nitrogen [Mass/Vol] 34 mg/dL High 7 - 17 mg/dL [facility] CBC panel Auto (Bld)Ordered By: Thien Sinha on 01-04-2023 Erythrocyte distribution width (RBC) [Ratio] 16.0 % High 11.5 - 14.5 % [facility] Hematocrit (Bld) [Volume fraction] 29.0 % Low 35.0 - 47.0 % [facility] Hemoglobin (Bld) [Mass/Vol] 9.9 g/dL Low 11.7 - 16.0 g/dL [facility] Interpretation and review of laboratory results Abnormal [facility] MCH (RBC) [Entitic mass] 31.9 pg 26.0 - 34.0 pg [facility] MCHC (RBC) [Mass/Vol] 34.1 % 32.0 - 36.0 % [facility] MCV (RBC) [Entitic vol] 93.4 fL 80.0 - 98.0 fL [facility] Platelet mean volume (Bld) [Entitic vol] 9.2 fL 7.4 - 12.4 fL [facility] Platelets (Bld) [#/Vol] 87 10*3/uL Low 140 - 440 10*3/uL [facility] RBC (Bld) [#/Vol] 3.10 10*6/uL Low 3.8 - 5.20 10*6/uL [facility] WBC (Bld) [#/Vol] 7.9 10*3/uL 3.6 - 10.7 10*3/uL [facility] Magnesiumon 01-04-2023 Magnesium [Mass/Vol] 2.6 mg/dL High 1.6 - 2 .3 mg/dL [facility] No Panel Informationon 01-04 Interpretation and review of laboratory results Abnormal [facility] POCT glucose meteron 023 Glucose [Mass/Vol] 116 mg/dL High 70 - 100 mg/dL [facility] Interpretation and review of laboratory results Abnormal [facility] Performed by: [facility], [address] [place] [address] CLIA ID: [id number] [facility] Glucose [Mass/Vol] 119 mg/dL High 70 - 100 mg/dL [facility] Interpretation and review of laboratory results Abnormal [facility] Performed by: [facility], [address] [place] [address] CLIA ID: [id number] [facility] Glucose [Mass/Vol] 122 mg/dL High 70 - 100 mg/dL [facility] Interpretation and review of laboratory results Abnormal [facility] Performed by: [facility], [address] [place] [address] CLIA ID: [id number] [facility] Progress Noteon 01-04-2023 Progress Note Cardiothoracic Surge ry Note PATIENT NAME: Lacy Alvarado : 1950 (72 y.o.) TODAY'S DATE: 01/04/2023 Objective: BP 106/60 (BP Location: Right arm, Patient Position: Sitting) Pulse 84 Temp 36.3 ?C (97.4 ?F) (Temporal) Resp 14 Ht 5' 2" (1.575 m) Wt 175 lb (79.4 kg) SpO2 96% BMI 32.01 kg/m? Chest tubes assessed: no air leak, subcutaneous air noted. Chest tubes removed without difficulty and dressing applied. Patient tolerated well. Patient and nurse educated on possible complications to observe for. Will continue to monitor. [facility] Progress Note Physical Therapy Facility/Department: [facility] Physical Therapy Daily Treatment Note NAME: [...] The primary encounter diagnosis was CAD in [place] artery. A diagnosis of Coronary artery disease involving coronary bypass graft, unspecified whether angina present, unspecified whether [place] or transplanted heart was also pertinent to this visit. has a past medical history of CHF (congestive heart failure) (CMS/HCC) ([facility]), Diabetes mellitus (HCC), GERD (gastroesophageal reflux disease), Hyperlipidemia, Hypertension, RA (rheumatoid arthritis) ([facility]), Seizure (HCC), Seizures (HCC), and Sleep apnea. [...] / Caregiver Present: No Diagnosis: CAD in [place] artery s/p CABG on 01/01 Follows Commands: [...] Start: 01/02/23 (more content not included)... Normal [facility] Progress Note Department of [employer] [facility] Medicine Division of Endocrinology, Diabetes, & Metabolism Endocrinology Note Patient Name: Lacy Alvarado : 1950 AGE: 72 y.o. Room/Bed: T1-103/T1-103 A Admission Date: 01/01/2023 Visit Date: 01/04/2023 Reason for Endocrine Consult: post op heart Provider/Team Requesting Consult: [facility] PCP: MAYDA GARCIA Outpt High Density Finishing Operator: No ASSESSMENT: DM 2 with hyperglycemia without half-way insulin Stress hyperglycemia CAD s/p Cabgx4 PLAN: [...] Units, SubCUTAneo (more content not included)... Normal [facility] XR CHEST 1 VIEWon 01-04-2023 XR CHEST [...] Electronically Signed Date/Time: 01/04/2023 7:18 AM EDT [facility] XR Chest Single viewon 01-04 No significant change when compared with the previous study. Report Dictated on Electronically Signed By: Dino Jurado MD Electronically Signed Date/Time: 01/04/2023 7:18 AM EDT [facility] Patient Name: LACY SAVAGE : [...] There are degenerative changes of the spine. [facility] Dino Jurado MD - 01/04/2023 [facility] Name: [facility]AD[facility] 1950 [id number] Exam Date/Time: 01/04/2023 05:18 Procedure: XR CHEST [...] Electronically Signed Date/Time: 01/04/2023 7:18 AM EDT [facility] Radiology Study observation (narrative) [facility] Basic metabolic 1998 panelon 01-03-2023 Anion gap [Moles/Vol] 7 mmol/L 3 - 13 mmol/L [facility] Calcium [Mass/Vol] 8.5 mg/dL 8.4 - 10. 4 mg/dL [facility] Chloride [Moles/Vol] 103 mmol/L 98 - 10 7 mmol/L [facility] CO2 [Moles/Vol] 25 mmol/L 22 - 30 mmol/L [facility] Creatinine [Mass/Vol] 0.80 mg/dL 0.52 - 1.04 mg/dL [facility] GFR/1.73 sq M.predicted MDRD (S/P/Bld) [Vol rate/Area] 79.4 mL/min/{1.73_m2} - PINF [facility] Comment on above: Calculation based on the Chronic Kidney Disease Epidemiology Collaboration (CKD-EPI) equation refit without adjustment for race Glucose [Mass/Vol] 113 mg/dL High 70 - 100 mg/dL [facility] Interpretation and review of laboratory results Abnormal [facility] Potassium [Moles/Vol] 4.4 mmol/L 3.5 - 5.1 mmol/L [facility] Sodium [Moles/Vol] 136 mmol/L 135 - 145 mmol/L [facility] Urea nitrogen [Mass/Vol] 23 mg/dL High 7 - 17 mg/dL [facility] CBC panel Auto (Bld)Ordered By: Igor Gar on 01-03-2023 Erythrocyte distribution width (RBC) [Ratio] 16.7 % High 11.5 - 14.5 % [facility] Hematocrit (Bld) [Volume fraction] 29.5 % Low 35.0 - 47.0 % [facility] Hemoglobin (Bld) [Mass/Vol] 10.1 g/dL Low 11.7 - 16.0 g/dL [facility] Interpretation and review of laboratory results Abnormal [facility] MCH (RBC) [Entitic mass] 31.8 pg 26.0 - 34.0 pg [facility] MCHC (RBC) [Mass/Vol] 34.1 % 32.0 - 36.0 % [facility] MCV (RBC) [Entitic vol] 93.3 fL 80.0 - 98.0 fL [facility] Platelet mean volume (Bld) [Entitic vol] 9.1 fL 7.4 - 12.4 fL [facility] Platelets (Bld) [#/Vol] 82 10*3/uL Low 140 - 440 10*3/uL [facility] RBC (Bld) [#/Vol] 3.16 10*6/uL Low 3.8 - 5.20 10*6/uL [facility] WBC (Bld) [#/Vol] 8.6 10*3/uL 3.6 - 10.7 10*3/uL [facility] IDNon 01-03-2023 IDN Problem: Knowledge Deficit Goal: [...] Goal: Assess Nutritional Intake Outcome: Progressing Normal [facility] Magnesiumon 01-03-2023 Magnesium [Mass/Vol] 2.3 mg/dL 1.6 - 2 .3 mg/dL [facility] Magnesium [Mass/Vol]on 01-03 Interpretation and review of laboratory results Normal [facility] No Panel Informationon 01-03 [facility] POCT glucose meteron 023 Glucose [Mass/Vol] 150 mg/dL High 70 - 100 mg/dL [facility] Interpretation and review of laboratory results Abnormal [facility] Performed by: [facility], [address] [place] [address] CLIA ID: [id number] [facility] Glucose [Mass/Vol] 135 mg/dL High 70 - 100 mg/dL [facility] Interpretation and review of laboratory results Abnormal [facility] Performed by: [facility], [address] [place] [address] CLIA ID: [id number] [facility] Glucose [Mass/Vol] 133 mg/dL High 70 - 100 mg/dL [facility] Interpretation and review of laboratory results Abnormal [facility] Performed by: [facility], [address] [place] [address] CLIA ID: [id number] [facility] PROTIME/INR & PTTon 01-04-20 23 aPTT Coag (PPP) [Time] 31.7 s High 20.0 - 30.5 s [facility] INR Coag (PPP) [Relative time] 1.1 {INR} 0.9 - 1.1 [facility] Comment on above: Recommended Anticoag ulant [...] Interpretation and review of laboratory results Abnormal [facility] PT Coag (Bld) [Time] 11.6 s 9.0 - 12.0 s [facility] Progress Noteon 01-03-2023 Progress Note Department of [employer] [facility] [facility] Medicine Division of Endocrinology, Diabetes, & Metabolism Endocrinology Note Patient Name: Lacy Alvarado : 1950 AGE: 72 y.o. 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 Normal [facility] XR CHEST 1 VIEWon 01-03-2023 XR CHEST 1 VIEW Patient Name: LACY SAVAGE : 1950 [facility]#: [id number] Exam Date/Time: 01/03/2023 05:54 Procedure: XR CHEST [...] Electronically Signed Date/Time: 01/03/2023 10:16 AM EDT [facility] XR Chest Single viewon 01-03 No significant change when compared with the previous study. Report Dictated on Electronically Signed By: Dino Jurado MD Electronically Signed Date/Time: 01/03/2023 10:16 AM EDT [facility] Patient Name: LACY SAVAGE : 1950 Exam [...] There are degenerative changes of the spine. [facility] Dino Jurado MD - 01/03/2023 Patient Name: [...] Electronically Signed Date/Time: 01/03/2023 10:16 AM EDT [facility] Radiology Study observation (narrative) [facility] XR Chest Single viewOrdered By: Dino Jurado on 01-03-2023 [facility] Work Phone: [phone] 01-02-2023 [id number] [employer] Rec[employer]iter following case for Discharge Needs. Normal [facility] Basic metabolic 1998 panelon 01-02-2023 Anion gap [Moles/Vol] 10 mmol/L 3 - 13 mmol/L [facility] Calcium [Mass/Vol] 8.7 mg/dL 8.4 - 10. 4 mg/dL [facility] Chloride [Moles/Vol] 107 mmol/L 98 - 10 7 mmol/L [facility] CO2 [Moles/Vol] 23 mmol/L 22 - 30 mmol/L [facility] Creatinine [Mass/Vol] 0.99 mg/dL 0.52 - 1.04 mg/dL [facility] GFR/1.73 sq M.predicted MDRD (S/P/Bld) [Vol rate/Area] 61.5 mL/min/{1.73_m2} - PINF [facility] Comment on above: Calculation based on the Chronic Kidney Disease Epidemiology Collaboration (CKD-EPI) equation refit without adjustment for race Glucose [Mass/Vol] 104 mg/dL High 70 - 100 mg/dL [facility] Interpretation and review of laboratory results Abnormal [facility] Potassium [Moles/Vol] 4.5 mmol/L 3.5 - 5.1 mmol/L [facility] Sodium [Moles/Vol] 140 mmol/L 135 - 145 mmol/L [facility] Urea nitrogen [Mass/Vol] 20 mg/dL High 7 - 17 mg/dL [facility] Anion gap [Moles/Vol] 13 mmol/L 3 - 13 mmol/L [facility] Calcium [Mass/Vol] 8.3 mg/dL Low 8.4 - 10. 4 mg/dL [facility] Chloride [Moles/Vol] 107 mmol/L 98 - 10 7 mmol/L [facility] CO2 [Moles/Vol] 21 mmol/L Low 22 - 30 mmol/L [facility] Creatinine [Mass/Vol] 0.86 mg/dL 0.52 - 1.04 mg/dL [facility] GFR/1.73 sq M.predicted MDRD (S/P/Bld) [Vol rate/Area] 72.8 mL/min/{1.73_m2} - PINF [facility] Comment on above: Calculation based on the Chronic Kidney Disease Epidemiology Collaboration (CKD-EPI) equation refit without adjustment for race Glucose [Mass/Vol] 134 mg/dL High 70 - 100 mg/dL [facility] Interpretation and review of laboratory results Abnormal [facility] Potassium [Moles/Vol] 4.5 mmol/L 3.5 - 5.1 mmol/L [facility] Sodium [Moles/Vol] 140 mmol/L 135 - 145 mmol/L [facility] Urea nitrogen [Mass/Vol] 19 mg/dL High 7 - 17 mg/dL [facility] CARECOORDon 01-02-2023 [facility] Care Managment Initi al Assessment Date: 01/02/2023 Patient Name: Lacy Alvarado : 1950 Patient Information Source of Information: Patient Cognition/Language: WFL - Within Functional Limits Permission given to speak with patient desk representative/caregiver as indicated: Yes Confirmation of Payer with patient/family: Yes Payer Name: Anthem Medicare [place]: No Confirmation of Primary Care Physician: Confirmed [...] Living Prescription Coverage: Yes Pharmacy Used: [facility] Medication Management: Independent Transportation/Shopping: Assistance Provider [...] home care needs. Delores Mullins RN Normal [facility] CBC panel Auto (Bld)Ordered By: Maurilio Vidal on 01-02-2023 Erythrocyte distribution width (RBC) [Ratio] 16.8 % High 11.5 - 14.5 % [facility] Hematocrit (Bld) [Volume fraction] 25.7 % Low 35.0 - 47.0 % [facility] Hemoglobin (Bld) [Mass/Vol] 8.7 g/dL Low 11.7 - 16.0 g/dL [facility] Interpretation and review of laboratory results Abnormal [facility] MCH (RBC) [Entitic mass] 31.3 pg 26.0 - 34.0 pg [facility] MCHC (RBC) [Mass/Vol] 33.9 % 32.0 - 36.0 % [facility] MCV (RBC) [Entitic vol] 92.4 fL 80.0 - 98.0 fL [facility] Platelet mean volume (Bld) [Entitic vol] 9.0 fL 7.4 - 12.4 fL [facility] Platelets (Bld) [#/Vol] 80 10*3/uL Low 140 - 440 10*3/uL [facility] RBC (Bld) [#/Vol] 2.79 10*6/uL Low 3.8 - 5.20 10*6/uL [facility] WBC (Bld) [#/Vol] 6.1 10*3/uL 3.6 - 10.7 10*3/uL [facility] ECG 12 leadOrdered By: Slava Martins on 01-02-2023 Heart rate 95 /min bpm [facility] Work Phone: P [place] 53 degrees [facility] Work Phone: [place] Interval 183 ms [facility] Work Phone: [phone] QRS [place] 20 degrees [facility] Work Phone: QRSD Interval 86 ms [facility] Work Phone: QT Interval 380 ms [facility] Work Phone: QTC Interval 480 ms [facility] Work Phone: T Wave [place] 27 degrees [facility] Work Phone: [facility] Work Phone: ECG 12 leadon 01-02-2023 Sinus rhythm Electronically Signed On 01-02-2023 9:42:47 EDT by Michelle Stanley MD - 01/02/2023 IMPRESSION: Sinus rhythm Electronically Signed On 01-02-2023 9:42:47 EDT by [facility] Heart rate 102 /min bpm [facility] P [place] 56 degrees [facility] [place] Interval 147 ms [facility] QRS [place] 6 degrees [facility] QRSD Interval 70 ms [facility] QT Interval 332 ms [facility] QTC Interval 433 ms [facility] T Wave [place] 29 degrees [facility] Sinus tachycardia Probable left atrial enlargement Minimal ST elevation, inferior leads Electronically Signed On 01-02-2023 8:55:59 EDT by Michelle Stanley MD - 01/02/2023 IMPRESSION: Sinus tachycardia Probable left atrial enlargement Minimal ST elevation, inferior leads Electronically Signed On 01-02-2023 8:55:59 EDT by [facility] ECG 12-LEADon 01-02-2023 ECG 12-LEAD IMPRESSION: Sinus rhythm Electronically Signed On 01-02-2023 9:42:47 EDT by [facility] ECG 12-LEAD IMPRESSION: Sinus tachycardia Probable left atrial enlargement Minimal ST elevation, inferior leads Electronically Signed On 01-02-2023 8:55:59 EDT by [facility] Magnesiumon 01-02-2023 Magnesium [Mass/Vol] 2.3 mg/dL 1.6 - 2 .3 mg/dL [facility] Magnesium [Mass/Vol]on 01-02 Interpretation and review of laboratory results Normal [facility] No Panel Informationon 01-02 [facility] POCT glucose meteron 023 Glucose [Mass/Vol] 116 mg/dL High 70 - 100 mg/dL [facility] Interpretation and review of laboratory results Abnormal [facility] Performed by: [facility], [address] [place], [place] [id number] CLIA ID: [id number] [facility] Glucose [Mass/Vol] 121 mg/dL High 70 - 100 mg/dL [facility] Interpretation and review of laboratory results Abnormal [facility] Performed by: [facility], [address] [place] [address] CLIA ID: [id number] [facility] Glucose [Mass/Vol] 121 mg/dL High 70 - 100 mg/dL [facility] Interpretation and review of laboratory results Abnormal [facility] Performed by: [facility], [address] [place] [address] CLIA ID: [id number] [facility] Glucose [Mass/Vol] 132 mg/dL High 70 - 100 mg/dL [facility] Interpretation and review of laboratory results Abnormal [facility] Performed by: [facility], [address] [place] [address] CLIA ID: [id number] [facility] Glucose [Mass/Vol] 132 mg/dL High 70 - 100 mg/dL [facility] Interpretation and review of laboratory results Abnormal [facility] Performed by: [facility], [address] [place] [address] CLIA ID: [id number] [facility] Glucose [Mass/Vol] 120 mg/dL High 70 - 100 mg/dL [facility] Interpretation and review of laboratory results Abnormal [facility] Performed by: [facility], [address] [place] [address] CLIA ID: [id number] [facility] Glucose [Mass/Vol] 145 mg/dL High 70 - 100 mg/dL [facility] Interpretation and review of laboratory results Abnormal [facility] Performed by: [facility], [address] [place] [address] CLIA ID: [id number] [facility] Glucose [Mass/Vol] 136 mg/dL High 70 - 100 mg/dL [facility] Interpretation and review of laboratory results Abnormal [facility] Performed by: [facility], [address] [place] [address] CLIA ID: [id number] [facility] Glucose [Mass/Vol] 118 mg/dL High 70 - 100 mg/dL [facility] Interpretation and review of laboratory results Abnormal [facility] Performed by: [facility], [address] [place] [address] CLIA ID: [id number] [facility] Glucose [Mass/Vol] 144 mg/dL High 70 - 100 mg/dL [facility] Interpretation and review of laboratory results Abnormal [facility] Performed by: [facility], [address] [place] [address] CLIA ID: [id number] [facility] Glucose [Mass/Vol] 153 mg/dL High 70 - 100 mg/dL [facility] Interpretation and review of laboratory results Abnormal [facility] Performed by: [facility], [address] [place] [address] CLIA ID: [id number] [facility] PROTIME/INR & PTTon 01-03-20 23 aPTT Coag (PPP) [Time] 30.9 s High 20.0 - 30.5 s [facility] INR Coag (PPP) [Relative time] 1.1 {INR} 0.9 - 1.1 [facility] Comment on above: Recommended Anticoag ulant [...] Interpretation and review of laboratory results Abnormal [facility] PT Coag (Bld) [Time] 11.9 s 9.0 - 12.0 s [facility] Progress Noteon 01-02-2023 Progress Note Physical Therapy Facility/Department: [facility] Physical Therapy Initial Evaluation NAME: Lacy [...] The primary encounter diagnosis was CAD in [place] artery. A diagnosis of Coronary artery disease involving coronary bypass graft, unspecified whether angina present, unspecified whether [place] or transplanted heart was also pertinent to this visit. has a past medical history of CHF (congestive heart failure) (CMS/HCC) ([facility]), Diabetes mellitus ([facility]), GERD (gastroesophageal reflux disease), Hyperlipidemia, Hypertension, RA (rheumatoid arthritis) ([facility]), Seizure ([facility]), Seizures ([facility]), and Sleep apnea. has a past surgical [...] / Caregiver Present: No Diagnosis: CAD in [place] artery s/p CABG on 01/01 Follows Commands: [...] with min (more content not included)... Normal [facility] Progress Note ---- -------- Attestation signed by Angela Smith MD at 01/02/2023 1:35 PM I performed a history and physical examination of the patient. I have reviewed the patient's chart including pertinent history, medications, labs, radiology, and other reports. I reviewed the resident/OSNYA's note, agree with the documented findings and [...] (99.3 ?F) (Bladder) Resp 10 Ht 5' 2" (1.575 m) Wt 173 lb 11.6 oz [...] : 1950 AGE: 72 y.o. 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 Constitutional: General: She is in acute distress. Appearance: She is obese. HENT: Head: Normocephalic. Eyes: Pupils: Pupils are equal, round, and reactive to light. Cardiovascular: Rate and Rhythm: Normal rate and regular rhythm. Pulses: Normal pulses. Heart sounds: Normal heart sounds. Pulmonary: Effort: Pulmonary effort is normal. Breath sounds: (more content not included)... Normal [facility] Progress Note ---- -------- Attestation signed by [...] Milian. 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 Patient also had an echo done which showed mild (1+) tricuspid valve insufficiency." Dr Rose office note 12/23/2022. She presents [...] stent) CHF T2DM HLD Epilepsy HTN RA ILNA Post operative Pulm Management: Normal Post-operative Course [...] thrombocytopenia. Re (more content not included)... Normal [facility] XR CHEST 1 VIEWon 01-02-2023 XR CHEST [...] Electronically Signed Date/Time: 01/02/2023 9:48 AM EDT [facility] XR Chest Single viewon 01-02 Lines, tubes, [...] Electronically Signed Date/Time: 01/02/2023 9:48 AM EDT [facility] 1950 [id number] Exam Date/Time: 01/02/2023 05:15 Procedure: XR CHEST 1 VIEW Ordering Provider: WEAVER JENNIFER Reason For Exam: Shortness of breath EXAMINATION: CHEST RADIOGRAPH (SINGLE VIEW AP OR PA) Clinical History: Shortness of breath Comparison: Chest radiograph 01/01/2023 and 12/29/2022 RESULT: See impression [facility] RADIOLOGY [facility] Johan Ervin MD - 01/02/2023 Patient Name: LACY [facility]ADO [facility] 1950 [id number] Exam Date/Time: 01/02/2023 05:15 Procedure: XR CHEST [...] Electronically Signed Date/Time: 01/02/2023 9:48 AM EDT [facility] Radiology Study observation (narrative) [facility] XR Chest Single viewOrdered By: Johan Ervin on 01-02-2023 [employer] Work Phone: Basic metabolic 1998 panelon 01-01-2023 Anion gap [Moles/Vol] 10 mmol/L 3 - 13 mmol/L [facility] Calcium [Mass/Vol] 9.0 mg/dL 8.4 - 10. 4 mg/dL [employer] Chloride [Moles/Vol] 110 mmol/L High 98 - 10 7 mmol/L [facility] CO2 [Moles/Vol] 20 mmol/L Low 22 - 30 mmol/L [facility] Creatinine [Mass/Vol] 0.77 mg/dL 0.52 - 1.04 mg/dL [facility] GFR/1.73 sq M.predicted MDRD (S/P/Bld) [Vol rate/Area] 83.1 mL/min/{1.73_m2} - PINF [facility] Comment on above: Calculation based on the Chronic Kidney Disease Epidemiology Collaboration (CKD-EPI) equation refit without adjustment for race Glucose [Mass/Vol] 124 mg/dL High 70 - 100 mg/dL [facility] Potassium [Moles/Vol] 3.6 mmol/L 3.5 - 5.1 mmol/L [facility] Sodium [Moles/Vol] 140 mmol/L 135 - 145 mmol/L [facility] Urea nitrogen [Mass/Vol] 21 mg/dL High 7 - 17 mg/dL [facility] Blood gas, arterialOrdered B y: Arthur Gonzalez on 01-01-2023 Base excess Calc (Bld) [Moles/Vol] -3.3000 mmol/L Low -3.0 - 3.0 mmol/L [facility] CO2 (Bld) [Partial pressure] 30.7 mm[Hg] Low - PINF [facility] CO2 [Moles/Vol] 21.4 mmol/L Low 23.0 - 27.0 mmol/L [facility] HCO3 (Bld) [Moles/Vol] 20.4 mmol/L Low 21.0 - 25.0 mmol/L [facility] Hemoglobin (Bld) [Mass/Vol] 7.1 g/dL Screen Only [facility] Interpretation and review of laboratory results Abnormal [facility] Oxygen (Bld) [Partial pressure] 243.2 mm[Hg] High [facility] pH (Bld) 7.441 [pH] 7.350 - 7.450 [facility] Source Of Oxygen Vent [facility] CBC panel Auto (Bld)on 01-01 Erythrocyte distribution width (RBC) [Ratio] 14.2 % 11.5 - 14.5 % [facility] Hematocrit (Bld) [Volume fraction] 20.0 % Low 35.0 - 47.0 % [facility] Hemoglobin (Bld) [Mass/Vol] 6.9 g/dL Critically low 11.7 - 16.0 g/dL [facility] Interpretation and review of laboratory results Abnormal [facility] MCH (RBC) [Entitic mass] 33.1 pg 26.0 - 34.0 pg [facility] MCHC (RBC) [Mass/Vol] 34.3 % 32.0 - 36.0 % [facility] MCV (RBC) [Entitic vol] 96.7 fL 80.0 - 98.0 fL [facility] Platelet mean volume (Bld) [Entitic vol] 8.7 fL 7.4 - 12.4 fL [facility] Platelets (Bld) [#/Vol] 79 10*3/uL Low 140 - 440 10*3/uL [facility] RBC (Bld) [#/Vol] 2.07 10*6/uL Low 3.8 - 5.20 10*6/uL [facility] WBC (Bld) [#/Vol] 9.0 10*3/uL 3.6 - 10.7 10*3/uL [facility] Repeated [facility] CBC panel Auto (Bld)Ordered By: Sadie Jackson on 01-01-2023 Erythrocyte distribution width (RBC) [Ratio] 14.3 % 11.5 - 14.5 % [facility] Hematocrit (Bld) [Volume fraction] 21.4 % Low 35.0 - 47.0 % [facility] Hemoglobin (Bld) [Mass/Vol] 7.2 g/dL Low 11.7 - 16.0 g/dL [facility] Interpretation and review of laboratory results Abnormal [facility] MCH (RBC) [Entitic mass] 32.7 pg 26.0 - 34.0 pg [facility] MCHC (RBC) [Mass/Vol] 33.7 % 32.0 - 36.0 % [facility] MCV (RBC) [Entitic vol] 97.2 fL 80.0 - 98.0 fL [facility] Platelet mean volume (Bld) [Entitic vol] 9.0 fL 7.4 - 12.4 fL [facility] Platelets (Bld) [#/Vol] 78 10*3/uL Low 140 - 440 10*3/uL [facility] Comment on above: This result was prev iously suppressed from the chart. RBC (Bld) [#/Vol] 2.20 10*6/uL Low 3.8 - 5.20 10*6/uL [facility] WBC (Bld) [#/Vol] 7.1 10*3/uL 3.6 - 10.7 10*3/uL [facility] Calcium.ionized [Moles/Vol]o n 01-01-2023 Calcium.ionized (Bld) [Moles/Vol] 4.80 mg/dL 4.30 - 5.20 mg/dL [facility] Interpretation and review of laboratory results Normal [facility] PH, IONIZED CALCIUM 7.46 7.31 - 7.46 [facility] Consulton 01-01-2023 Consult ---- -------- Attestation signed [...] (99 ?F) Resp (!) 28 Ht 5' 2" (1.575 m) Wt 172 lb (78 kg) [...] : 1950 AGE: 72 y.o. [facility]: [facility] Admission Date: 01/01/2023 Visit Date: 01/01/2023 Reason for Endocrine Consult: post op heart Provider/Team Requesting Consult: cts PCP: MAYDA GARCIA Outpt High Density Finishing Operator: No ASSESSMENT: Cad s/p Cabgx4 Dm2 with hyperglycemia without half-way insulin Stress hyperglycemia Chf Hld/htn PLAN: Continue [...] kg (172 lb) Height: 1.575 m (5' 2") 1.575 m (5' 2") Physical Exam Vitals and nursing note reviewed. [...] (Coreg) 12.5 MG tablet Oral, 2 times adna (more content not included)... Normal [facility] Consult ---- -------- Attestation signed by Carlos Chavarria DO at 01/01/2023 2:48 PM I have personally performed a [id number] diagnostic evaluation on this patient on date [...] leak in CTs No Pacer wires -------- [facility]: Critical Care Consultation Note Date: 01/01/23 PATIENT NAME: Lacy Alvarado : 1950 (72 y.o.) Reason for Consult: Critical Care & Vent Management HPI: Lacy Alvarado is a 72 y.o. female was referred to us by Dr. Bhanu Milian. 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 Patient also had an echo done which showed mild (1+) tricuspid valve insufficiency." Dr Rose office note 12/23/2022. She presents [...] 29 Devices (more content not included)... Normal [facility] FibrinogenOrdered By: Stephania dunlap on 01-01-2023 Fibrinogen Coag (PPP) [Mass/Vol] 149 mg/dL Low 200 - 400 mg/dL [facility] Fibrinogen Coag (PPP) [Mass/ Vol]Ordered By: Stephania Cummings on 01-01-2023 Interpretation and review of laboratory results Abnormal [facility] Hemoglobin (Bld) [Mass/Vol]O rdered By: Lety Decker on 01-01-2023 Hematocrit (Bld) [Volume fraction] 26.8 % Low 35.0 - 47.0 % [facility] Interpretation and review of laboratory results Abnormal [facility] Hemoglobin and hematocrit, b loodOrdered By: Lety Decker on 01-01-2023 Hemoglobin (Bld) [Mass/Vol] 9.1 g/dL Low 11.7 - 16.0 g/dL [facility] Magnesiumon 01-01-2023 Magnesium [Mass/Vol] 3.4 mg/dL High 1.6 - 2 .3 mg/dL [facility] No Panel Informationon 01-01 Blood Expiration Date [id number] S [facility] Crossmatch interpretation COMP [facility] Dispense Status Transfused [facility] Product Blood Type 5100 [facility] PRODUCT CODE [id number] [facility] Unit ABO O [facility] Unit RH Positive [facility] Unit Volume 300 mL [facility] Interpretation and review of laboratory results Abnormal [facility] POCT glucose meteron 023 Glucose [Mass/Vol] 141 mg/dL High 70 - 100 mg/dL [facility] Interpretation and review of laboratory results Abnormal [facility] Performed by: [facility], [address] [place] [address] CLIA ID: [id number] [facility] Glucose [Mass/Vol] 148 mg/dL High 70 - 100 mg/dL [facility] Interpretation and review of laboratory results Abnormal [facility] Performed by: [facility], [address] [place] [address] CLIA ID: [id number] [facility] Glucose [Mass/Vol] 138 mg/dL High 70 - 100 mg/dL [facility] Interpretation and review of laboratory results Abnormal [facility] Performed by: [facility], [address] [place] [address] CLIA ID: [id number] [facility] Glucose [Mass/Vol] 121 mg/dL High 70 - 100 mg/dL [facility] Interpretation and review of laboratory results Abnormal [facility] Performed by: [facility], [address] [place] [address] CLIA ID: [id number] [facility] Glucose [Mass/Vol] 142 mg/dL High 70 - 100 mg/dL [facility] Interpretation and review of laboratory results Abnormal [facility] Performed by: [facility], [address] [place] [address] CLIA ID: [id number] [facility] Glucose [Mass/Vol] 133 mg/dL High 70 - 100 mg/dL [facility] Interpretation and review of laboratory results Abnormal [facility] Performed by: [facility], [address] [place] [address] CLIA ID: [id number] [facility] Glucose [Mass/Vol] 152 mg/dL High 70 - 100 mg/dL [facility] Interpretation and review of laboratory results Abnormal [facility] Performed by: [facility], [address] [place] [address] CLIA ID: [id number] [facility] Glucose [Mass/Vol] 170 mg/dL High 70 - 100 mg/dL [facility] Interpretation and review of laboratory results Abnormal [facility] Performed by: [facility], [address] [place] [address] 12378 CLIA ID: [id number] [facility] Glucose [Mass/Vol] 120 mg/dL High 70 - 100 mg/dL [facility] Interpretation and review of laboratory results Abnormal [facility] Performed by: [facility], [address] [place] [address] CLIA ID: [id number] [facility] Glucose [Mass/Vol] 84 mg/dL 70 - 100 mg/dL [facility] Interpretation and review of laboratory results Normal [facility] Performed by: [facility], [address] [place] [address] 48463 CLIA ID: [id number] [facility] Glucose [Mass/Vol] 82 mg/dL 70 - 100 mg/dL [facility] Interpretation and review of laboratory results Normal [facility] Performed by: [facility], [address] [place] [address] CLIA ID: [id number] [facility] Glucose [Mass/Vol] 101 mg/dL High 70 - 100 mg/dL [facility] Interpretation and review of laboratory results Abnormal [facility] Performed by: [facility], [address] [place] [address] CLIA ID: [id number] [facility] Glucose [Mass/Vol] 125 mg/dL High 70 - 100 mg/dL [facility] Interpretation and review of laboratory results Abnormal [facility] Performed by: [facility], [address] [place] [address] CLIA ID: [id number] [facility] PROTIME/INR & PTTon 01-02-20 23 aPTT Coag (PPP) [Time] 24.2 s 20.0 - 30.5 s [facility] INR Coag (PPP) [Relative time] 1.3 {INR} High 0.9 - 1.1 [facility] Comment on above: Recommended Anticoag ulant [...] Interpretation and review of laboratory results Abnormal [facility] PT Coag (Bld) [Time] 14.0 s High 9.0 - 12.0 s [facility] Phosphate [Moles/Vol]on 12-04 Interpretation and review of laboratory results Normal [facility] Phosphate [Mass/Vol] 3.7 mg/dL 2.5 - 4 .5 mg/dL [facility] Prepare RBC: 2 Unitson 01-01 Unit Number [id number] [facility] Unit Number [id number] [facility] US Heart Transesophagealon 0 01-01-2023 Left [...] Additional Conclusions No significant valvular abnormalities. CV [facility] XR CHEST 1 VIEWon 01-01-2023 XR CHEST 1 VIEW Patient Name: LACY SAVAGE : 1950 [facility]#: [id number] Exam Date/Time: 01/01/2023 13:18 Procedure: XR CHEST [...] Electronically Signed Date/Time: 01/01/2023 1:55 PM EDT [facility] XR Chest Single viewon 01-01 1. Status post thora cic surgery (CABG). 2. Line and tube placements as described. 3. Pulmonary vascular congestion without evidence of other acute cardiopulmonary process. Report Dictated on Electronically Signed By: Gómez Calvert MD Electronically Signed Date/Time: 01/01/2023 1:55 PM EDT [facility] Patient Name: LAC[facility]AV[facility] : 1950 [id number] Exam Date/Time: 01/01/2023 13:18 Procedure: XR CHEST [...] heart failure, infiltrate or pneumothorax is seen. [facility] Gómez Calvert MD - 01/01/2023 Patient Name: [...] Electronically Signed Date/Time: 01/01/2023 1:55 PM EDT [facility] Radiology Study observation (narrative) [facility] XR Chest Single viewOrdered By: Gómez Calvert on 01-01-2023 [facility] Work Phone: ECG 12-LEADon 12-30-2022 ECG 12-LEAD IMPRESSION: Sinus rhythm Probable left atrial enlargement Electronically Signed On 12-30-2022 8:43:39 EDT by Chris Kenny [facility] XR CHEST 2 VIEWSon 3 XR [...] Electronically Signed Date/Time: 12/30/2022 11:52 AM EDT [facility] PREPROCINSon 12-29-2022 PREPROCINS Medication List Accurate [...] have specific questions, please call your surgeon. 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 TAKE THE "H" ELEVATOR TO THE FIRST FLOOR, TURN LEFT OFF THE ELEVATOR AND GO TO THE SAME DAY SURGERY REGISTRATION DESK TO CHECK IN [facility] 36on 12-26-2022 36 Pre op teaching done with patient. Instructed to hold NSAIDS except Aspirin 7 days prior to surgery, hold Plavix 7 days prior to surgery, and not to take any medications day of surgery. Pharmacy confirmed. All questions answered. [facility] 36on 12-24-2022 36 Called spoke with patient, all questions answered [facility] 36 Surg proc orders michael patience, medications e-scribed - talked to patient, answered all questions. [facility] 36on 12-23-2022 36 Patient is scheduled for CABG on 01/01. Patient lives on the third floor and asking if she is able to climb all those stairs right after surgery? Please advise [phone] [facility] Office Visiton 12-23-2022 Follow-up visit [id number] Villagomez 1950 F Date Provider Department Center 12/23/2022 [id number] ROSE [facility] A[facility] CT None No family history on file Level of Service:86197 [place] OFFICE/OUTPATIENT [facility] 60-74 MINUTES Reason for Visit and Comments: New Patient [542] [facility] Progress Noteon 12-23-[address] [facility] MEDICAL [facility] CARDIOVASCULAR & THORACIC SURGERY [address] [facility] [address] Dept: [phone] Dept Loc: [phone] Visit type: New Reason for Visit: Multivessel [...] elective basis. History of Present Illness Lacy Alvaardo is a 72 y.o. female was referred to us by Dr. Bhanu Milian. Patient was admitted on 12/18/22 to [facility] with CP. Per notes, patient has [...] CT Abdomen (more content not included)... Normal [facility] Glucose Glucometer (BldC) [M ass/Vol]Ordered By: Edwin Kaplan on 12-19-2022 Glucose [Mass/Vol] 101 mg/dL 74-106 [facility] Comment on above: MANAGEMENT OF PATIEN T CARE PER NURSING PROTOCOL Absolute lymphocyte countOrd ered By: Turner Armendariz on 12-18-2022 Lymphocytes Auto (Unsp spec) [#/Vol] 2.22 10*3/uL 0.83-4.51 [facility] Basophil percentageOrdered B y: Turner Armendariz on 12-18-2022 Basophil percentage 144 mg/dL 74-106 [facility] Basophil percentage 141 mmol/L 136-145 [facility] Basophil percentage 4.0 mmol/L 3.5-5.1 [facility] Basophil percentage 108 mmol/L 98-107 [facility] Basophils (Bld) [#/Vol] 4.9 10*3/uL 4.4-11.0 [facility] Basophils (Bld) [#/Vol] 2.2 10*3/uL 2.0-7.7 [facility] Basophils/100 WBC (Bld) 0.4 % 0-1 [facility] Basophils/100 WBC (Bld) 43.9 % 47-70 [facility] Basophils/100 WBC (Bld) 2.4 % 0-5 [facility] Chloride [Moles/Vol] 108 mmol/L 98-107 [facility] Eosinophils/100 WBC (Bld) 2.4 % 0-5 [facility] Glucose [Mass/Vol] 144 mg/dL 74-106 [facility] Comment on above: Fasting Glucose resu lt greater than or equal to 126 mg/dL suggests DIABETES MELLITUS per A.D.A. criteria. Neutrophils (Bld) [#/Vol] 2.2 10*3/uL 2.0-7.7 [facility] Neutrophils/100 WBC (Bld) 43.9 % 47-70 [facility] Potassium [Moles/Vol] 4.0 mmol/L 3.5-5.1 [facility] Sodium [Moles/Vol] 141 mmol/L 136-145 [facility] WBC (Bld) [#/Vol] 4.9 10*3/uL 4.4-11.0 [facility] Blood erythrocytes count (nu mber/volume)Ordered By: [facility] on 12-18-2022 RBC (Bld) [#/Vol] 3.32 10*6/uL 4.2-5.4 [facility] Blood hemoglobin measurement (mass/volume)Ordered By: Turner Armendariz on 12-18-2022 Hemoglobin (Bld) [Mass/Vol] 10.8 g/dL 12.0-15.0 [facility] Blood lymphocytes/100 leukoc ytesOrdered By: [facility] on 12-18-2022 Lymphocytes/100 WBC (Bld) 45.0 % 19-41 [facility] Blood monocytes/100 leukocyt esOrdered By: Melrose Marcello on 12-18-2022 Monocytes/100 WBC (Bld) 8.1 % 0-10 [facility] Blood platelet mean volumeOr dered By: Turner Armendariz on 12-18-2022 Platelet mean volume (Bld) [Entitic vol] 10.7 fL 6.2-12.0 [facility] Determination of erythrocyte mean corpuscular volume (MCV)Ordered By: Tunrer Armendariz on 12-18-2022 MCV (RBC) [Entitic vol] 99.1 fL 81-99 [facility] Hematocrit Auto (Bld) [Volum e fraction]Ordered By: [facility] on 12-18-2022 Hematocrit (Bld) [Volume fraction] 32.9 % 37-47 [facility] INR in Blood by Coagulation assayOrdered By: Jossue Boyd on 12-18-2022 INR Coag (Bld) [Relative time] 1.0 {INR} [facility] Laboratory - Chemistry and C hemistry - challengeOrdered By: Turner Armendariz on 12-18-2022 CO2 [Moles/Vol] 29.0 mmol/L 21.0-32.0 [facility] Urea nitrogen/Creatinine [Mass ratio] 27.6 mg/mg 10-20 [facility] Laboratory - CoagulationOrde red By: Jossue Boyd on 12-18-2022 aPTT Coag (Bld) [Time] 27.4 s 24.1-36.2 [facility] PT Coag (PPP) [Time] 12.8 s 11.7-14.9 [facility] Laboratory - Hematology and Cell countsOrdered By: Turner Armendariz on 12-18-2022 Erythrocyte distribution width (RBC) [Entitic vol] 50.8 fL 35.1-43.9 [facility] Erythrocyte distribution width (RBC) [Ratio] 13.9 % 11.6-14.6 [facility] Immature granulocytes/100 WBC (Bld) 0.200 % 0.0-0.9 [facility] Comment on above: IG% - Immature Granu locytes (promyelocytes, myelocytes and metamyelocytes) > 1% indicates that a LEFT SHIFT is Present. MCH (RBC) [Entitic mass] 32.5 pg 27.0-32.0 [facility] Nucleated RBC/100 WBC (Bld) [Ratio] 0 % 0-5 [facility] MCHC Auto (RBC) [Mass/Vol]Or dered By: Turner Armendariz on 12-18-2022 MCHC (RBC) [Mass/Vol] 32.8 g/dL 32-36 [facility] No Panel InformationOrdered By: Edwin Kaplan on 12-18-2022 Troponin I High Sensitivity 5 pg/mL 3.0-54.0 [facility] Comment on above: Please Note: New Gina t Units and Gender Specific Reference Ranges. For more information see Policy Stat Procedure [place] High Sensitivity Troponin (TNIH) and attachments. 5 pg/mL 3.0-54.0 [facility] No Panel InformationOrdered By: Turner Armendariz on 12-18-2022 Troponin I High Sensitivity 5 pg/mL 3.0-54.0 [facility] Comment on above: Please Note: New Gina t Units and Gender Specific Reference Ranges. For more information see Policy Stat Procedure [place] High Sensitivity Troponin (TNIH) and attachments. D-Dimer Quantitative (PE/DVT) 0.31 FEU/ug/m 0.27-0.49 [facility] Comment on above: NORMAL D-Dimer level (<0.50) indicates no DVT or PE. Estimated Creatinine Clearance Calc 71.34 ml/min [facility] Estimated GFR (MDRD) Amer 79 mL/min >60 [facility] Comment on above: GFR Calc Estimated GFR (MDRD) Non-Af Amer 65 mL/min >60 [facility] Comment on above: Non- GFR Calc 32.5 pg 27.0-32.0 [facility] 13.9 % 11.6-14.6 [facility] 50.8 fl 35.1-43.9 [facility] 0.200 % 0.0-0.9 [facility] 0 % 0-5 [facility] 0.31 FEU/ug/m 0.27-0.49 [facility] 65 mL/min >60 [facility] 79 mL/min >60 [facility] 71.34 ml/min [facility] 27.6 RATIO 10-20 [facility] 29.0 mmol/L 21.0-32.0 [facility] No Panel InformationOrdered By: Jossue Boyd on 12-18-2022 12.8 SECONDS 11.7-14.9 [facility] 27.4 Seconds 24.1-36.2 [facility] Platelets bldOrdered By: Rem us Ungur on 12-18-2022 Platelets (Bld) [#/Vol] 183 10*3/uL 150-450 [facility] Serum or plasma calcium loretta urement (mass/volume)Ordered By: Remus Ungur on 12-18-2022 Calcium [Mass/Vol] 8.5 mg/dL 8.5-10.1 [facility] Serum or plasma creatinine m easurement (mass/volume)Ordered By: Remus Ungur on 12-18-2022 Creatinine [Mass/Vol] 0.90 mg/dL 0.55-1.02 [facility] Comment on above: The validity of the calculated GFR & GFRAA in patients over 70 years has not been determined. Clinical correlation is essential. Serum or plasma urea nitroge n measurement (mass/volume)Ordered By: Turner Armendariz on 12-18-2022 Urea nitrogen [Mass/Vol] 25 mg/dL 7-18 [facility] Thin prep Papanicolaou smear with manual screeningOrdered By: Turner Armendariz on 12-18-2022 Thin prep Papanicolaou smear with manual screening 4 5-15 [facility] Laboratory - Hematology and Cell countson 12-11-2022 HbA1c (Bld) [Mass fraction] 6.6 % 4.2-6.3 [facility] No Panel Informationon 12-11 6.6 % 4.2-6.3 [facility] Basophil percentageOrdered B y: Dr. Garcia on 10-01-2022 Chloride [Moles/Vol] 113 mmol/L 98-107 [facility] Glucose [Mass/Vol] 114 mg/dL 74-106 [facility] Comment on above: Fasting Glucose resu lt from 100 to 125 mg/dL suggests IMPAIRED HOMEOSTASIS per A.D.A. criteria. Potassium [Moles/Vol] 3.8 mmol/L 3.5-5.1 [facility] Sodium [Moles/Vol] 144 mmol/L 136-145 [facility] Laboratory - Chemistry and C hemistry - challengeOrdered By: Dr. Garcia on 10-01-2022 CO2 [Moles/Vol] 25.0 mmol/L 21.0-32.0 [facility] Urea nitrogen/Creatinine [Mass ratio] 26.3 mg/mg 10-20 [facility] No Panel InformationOrdered By: Dr. Garcia on 10-01-2022 Estimated GFR (MDRD) Amer 92 mL/min >60 [facility] Comment on above: GFR Calc Estimated GFR (MDRD) Non-Af Amer 76 mL/min >60 [facility] Comment on above: Non- GFR Calc Valproic Acid (Depakene) Level 36 ug/mL 50-100 [facility] Serum or plasma calcium loretta urement (mass/volume)Ordered By: Dr. Garcia on 10-01-2022 Calcium [Mass/Vol] 8.6 mg/dL 8.5-10.1 [facility] Serum or plasma creatinine m easurement (mass/volume)Ordered By: Dr. Garcia on 10-01-2022 Creatinine [Mass/Vol] 0.80 mg/dL 0.55-1.02 [facility] Comment on above: The validity of the calculated GFR & GFRAA in patients over 70 years has not been determined. Clinical correlation is essential. Serum or plasma urea nitroge n measurement (mass/volume)Ordered By: Dr. Garcia on 10-01-2022 Urea nitrogen [Mass/Vol] 21 mg/dL 7-18 [facility] Thin prep Papanicolaou smear with manual screeningOrdered By: Dr. Garcia on 10-01-2022 Thin prep Papanicolaou smear with manual screening 6 -15 [facility] Whole blood hemoglobin A1c/t otal hemoglobin ratio (mass fraction)Ordered By: Dr. Garcia on 10-01-2022 HbA1c (Bld) [Mass fraction] 7.0 % 3.8-5.6 [facility] Comment on above: Normal < 5.7 % Predi abetic 5.7 - 6.4 % Diabetic >or= 6.5 % Please note range changes. Absolute lymphocyte countOrd ered By: Dr. Freeman on 08-13-2022 Lymphocytes Auto (Unsp spec) [#/Vol] 2.73 10*3/uL 0.83-4.51 [facility] Basophil percentageOrdered B y: Dr. Freeman on 08-13-2022 Basophils/100 WBC (Bld) 0.6 % 0-1 [facility] Bilirubin [Mass/Vol] 0.20 mg/dL 0.20-1.00 [facility] Comment on above: For patients on eltr ombopag therapy, use of Dimension [place] TBIL is not recommended. Chloride [Moles/Vol] 114 mmol/L 98-107 [facility] Eosinophils/100 WBC (Bld) 2.1 % 0-5 [facility] Glucose [Mass/Vol] 143 mg/dL 74-106 [facility] Comment on above: Fasting Glucose resu lt greater than or equal to 126 mg/dL suggests DIABETES MELLITUS per A.D.A. criteria. Neutrophils (Bld) [#/Vol] 2.8 10*3/uL 2.0-7.7 [facility] Neutrophils/100 WBC (Bld) 45.6 % 47-70 [facility] Potassium [Moles/Vol] 3.7 mmol/L 3.5-5.1 [facility] Protein [Mass/Vol] 7.6 g/dL 6.4-8.2 [facility] Sodium [Moles/Vol] 140 mmol/L 136-145 [facility] WBC (Bld) [#/Vol] 6.2 10*3/uL 4.4-11.0 [facility] Blood erythrocytes count (nu mber/volume)Ordered By: Dr. Freeman on 08-13-2022 RBC (Bld) [#/Vol] 4.08 10*6/uL 4.2-5.4 [facility] Blood hemoglobin measurement (mass/volume)Ordered By: Dr. Freeman on 08-13-2022 Hemoglobin (Bld) [Mass/Vol] 12.8 g/dL 12.0-15.0 [facility] Blood lymphocytes/100 leukoc ytesOrdered By: Dr. Freeman on 08-13-2022 Lymphocytes/100 WBC (Bld) 44.1 % 19-41 [facility] Blood monocytes/100 leukocyt esOrdered By: Dr. Freeman on 08-13-2022 Monocytes/100 WBC (Bld) 7.4 % 0-10 [facility] Blood platelet mean volumeOr dered By: Dr. Freeman on 08-13-2022 Platelet mean volume (Bld) [Entitic vol] 10.6 fL 6.2-12.0 [facility] Determination of erythrocyte mean corpuscular volume (MCV)Ordered By: Dr. Freeman on 08-13-2022 MCV (RBC) [Entitic vol] 99.3 fL 81-99 [facility] Hematocrit Auto (Bld) [Volum e fraction]Ordered By: Dr. Freeman on 08-13-2022 Hematocrit (Bld) [Volume fraction] 40.5 % 37-47 [facility] Laboratory - Chemistry and C hemistry - challengeOrdered By: Dr. Freeman on 08-13-2022 ALP [Catalytic activity/Vol] 103 U/L 45-117 [facility] ALT [Catalytic activity/Vol] 32 U/L 13-56 [facility] CO2 [Moles/Vol] 22.0 mmol/L 21.0-32.0 [facility] Globulin (S) [Mass/Vol] 4.0 g/dL 2.2-4.2 [facility] Urea nitrogen/Creatinine [Mass ratio] 18.8 mg/mg 10-20 [facility] Laboratory - Hematology and Cell countsOrdered By: Dr. Freeman on 08-13-2022 Erythrocyte distribution width (RBC) [Entitic vol] 49.6 fL 35.1-43.9 [facility] Erythrocyte distribution width (RBC) [Ratio] 13.5 % 11.6-14.6 [facility] Immature granulocytes/100 WBC (Bld) 0.200 % 0.0-0.9 [facility] Comment on above: IG% - Immature Granu locytes (promyelocytes, myelocytes and metamyelocytes) > 1% indicates that a LEFT SHIFT is Present. MCH (RBC) [Entitic mass] 31.4 pg 27.0-32.0 [facility] Nucleated RBC/100 WBC (Bld) [Ratio] 0 % 0-5 [facility] MCHC Auto (RBC) [Mass/Vol]Or dered By: Dr. Freeman on 08-13-2022 MCHC (RBC) [Mass/Vol] 31.6 g/dL 32-36 [facility] No Panel InformationOrdered By: Dr. Freeman on 08-13-2022 Estimated Creatinine Clearance Calc 41.58 ml/min [facility] Estimated GFR (MDRD) Amer 70 mL/min >60 [facility] Comment on above: GFR Calc Estimated GFR (MDRD) Non-Af Amer 58 mL/min >60 [facility] Comment on above: Non- GFR Calc Valproic Acid (Depakene) Level 38 ug/mL 50-100 [facility] Platelets bldOrdered By: Dr. Freeman on 08-13-2022 Platelets (Bld) [#/Vol] 207 10*3/uL 150-450 [facility] Serum or plasma albumin loretta urement (mass/volume)Ordered By: Dr. Freeman on 08-13-2022 Albumin [Mass/Vol] 3.6 g/dL 3.2-5.0 [facility] Serum or plasma albumin/glob ulin mass ratioOrdered By: Dr. Freeman on 08-13-2022 Albumin/Globulin [Mass ratio] 0.9 {ratio} 0.9-2.4 [facility] Serum or plasma calcium loretta urement (mass/volume)Ordered By: Dr. Freeman on 08-13-2022 Calcium [Mass/Vol] 8.5 mg/dL 8.5-10.1 [facility] Serum or plasma creatinine m easurement (mass/volume)Ordered By: Dr. Freeman on 08-13-2022 Creatinine [Mass/Vol] 1.01 mg/dL 0.55-1.02 [facility] Comment on above: The validity of the calculated GFR & GFRAA in patients over 70 years has not been determined. Clinical correlation is essential. Serum or plasma urea nitroge n measurement (mass/volume)Ordered By: Dr. Freeman on 08-13-2022 Urea nitrogen [Mass/Vol] 19 mg/dL 7-18 [facility] Thin prep Papanicolaou smear with manual screeningOrdered By: Dr. Freeman on 08-13-2022 Thin prep Papanicolaou smear with manual screening 28 U/L 15-37 [facility] Thin prep Papanicolaou smear with manual screening 4 5-15 [facility] Laboratory - Hematology and Cell countson 06-30-2022 HbA1c (Bld) [Mass fraction] 6.8 % 4.2-6.3 [facility] Culture, urineOrdered By: Dr Yoko Chan on 06-07-2022 Bacteria identified Cx Nom (U) Mixed Gram Pos & Gram Neg Org [facility] Absolute lymphocyte countOrd ered By: Dr. Chan on 06-06-2022 Lymphocytes Auto (Unsp spec) [#/Vol] 1.11 10*3/uL 0.83-4.51 [facility] Basophil percentageOrdered B y: Dr. Chan on 06-06-2022 Basophil percentage 0 SEEN /hpf 0-5 [facility] Basophils/100 WBC (Bld) 0.4 % 0-1 [facility] Bilirubin [Mass/Vol] 0.30 mg/dL 0.20-1.00 [facility] Comment on above: For patients on eltr ombopag therapy, use of Dimension [place] TBIL is not recommended. Chloride [Moles/Vol] 107 mmol/L 98-107 [facility] Eosinophils/100 WBC (Bld) 1.5 % 0-5 [facility] Glucose [Mass/Vol] 117 mg/dL 74-106 [facility] Comment on above: Fasting Glucose resu lt from 100 to 125 mg/dL suggests IMPAIRED HOMEOSTASIS per A.D.A. criteria. Neutrophils (Bld) [#/Vol] 4.0 10*3/uL 2.0-7.7 [facility] Neutrophils/100 WBC (Bld) 72.8 % 47-70 [facility] Potassium [Moles/Vol] 4.2 mmol/L 3.5-5.1 [facility] Protein [Mass/Vol] 7.9 g/dL 6.4-8.2 [facility] Sodium [Moles/Vol] 142 mmol/L 136-145 [facility] WBC (Bld) [#/Vol] 5.4 10*3/uL 4.4-11.0 [facility] Bilirubin Test strip Ql (U)O rdered By: Dr. Chan on 06-06-2022 Bilirubin Ql (U) Negative Negative [facility] Blood erythrocytes count (nu mber/volume)Ordered By: Dr. Chan on 06-06-2022 RBC (Bld) [#/Vol] 3.83 10*6/uL 4.2-5.4 [facility] Blood hemoglobin measurement (mass/volume)Ordered By: Dr. Chan on 06-06-2022 Hemoglobin (Bld) [Mass/Vol] 11.9 g/dL 12.0-15.0 [facility] Blood lymphocytes/100 leukoc ytesOrdered By: Dr. Chan on 06-06-2022 Lymphocytes/100 WBC (Bld) 20.4 % 19-41 [facility] Blood monocytes/100 leukocyt esOrdered By: Dr. Chan on 06-06-2022 Monocytes/100 WBC (Bld) 4.0 % 0-10 [facility] Blood platelet mean volumeOr dered By: Dr. Chan on 06-06-2022 Platelet mean volume (Bld) [Entitic vol] 10.1 fL 6.2-12.0 [facility] Determination of erythrocyte mean corpuscular volume (MCV)Ordered By: Dr. Chan on 06-06-2022 MCV (RBC) [Entitic vol] 96.6 fL 81-99 [facility] Hematocrit Auto (Bld) [Volum e fraction]Ordered By: Dr. Chan on 06-06-2022 Hematocrit (Bld) [Volume fraction] 37.0 % 37-47 [facility] Ketones Test strip Ql (U)Ord ered By: Dr. Chan on 06-06-2022 Ketones Ql (U) 15 mg/dl Negative [facility] Laboratory - Chemistry and C hemistry - challengeOrdered By: Dr. Chan on 06-06-2022 ALP [Catalytic activity/Vol] 88 U/L 45-117 [facility] ALT [Catalytic activity/Vol] 28 U/L 13-56 [facility] CO2 [Moles/Vol] 26.0 mmol/L 21.0-32.0 [facility] Globulin (S) [Mass/Vol] 4.4 g/dL 2.2-4.2 [facility] Urea nitrogen/Creatinine [Mass ratio] 29.2 mg/mg 10-20 [facility] Laboratory - Hematology and Cell countsOrdered By: Dr. Chan on 06-06-2022 Erythrocyte distribution width (RBC) [Entitic vol] 48.0 fL 35.1-43.9 [facility] Erythrocyte distribution width (RBC) [Ratio] 13.3 % 11.6-14.6 [facility] Immature granulocytes/100 WBC (Bld) 0.900 % 0.0-0.9 [facility] Comment on above: IG% - Immature Granu locytes (promyelocytes, myelocytes and metamyelocytes) > 1% indicates that a LEFT SHIFT is Present. MCH (RBC) [Entitic mass] 31.1 pg 27.0-32.0 [facility] Nucleated RBC/100 WBC (Bld) [Ratio] 0 % 0-5 [facility] MCHC Auto (RBC) [Mass/Vol]Or dered By: Dr. Chan on 06-06-2022 MCHC (RBC) [Mass/Vol] 32.2 g/dL 32-36 [facility] Mucus LM Ql (Urine sed)Order ed By: Dr. Chan on 06-06-2022 Mucus Ql (Urine sed) 0 SEEN /hpf [facility] Nitrite Test strip Ql (U)Ord ered By: Dr. Chan on 06-06-2022 Nitrite Ql (U) Negative Negative [facility] No Panel InformationOrdered By: Dr. Chan on 06-06-2022 Troponin I High Sensitivity 14 pg/mL 3.0-54.0 [facility] Comment on above: Please Note: New Gina t Units and Gender Specific Reference Ranges. For more information see Policy Stat Procedure [place] High Sensitivity Troponin (TNIH) and attachments. Estimated Creatinine Clearance Calc 39.62 ml/min [facility] Estimated GFR (MDRD) Amer 66 mL/min >60 [facility] Comment on above: GFR Calc Estimated GFR (MDRD) Non-Af Amer 55 mL/min >60 [facility] Comment on above: Non- GFR Calc Valproic Acid (Depakene) Level 62 ug/mL 50-100 [facility] Platelets bldOrdered By: Dr. Chan on 06-06-2022 Platelets (Bld) [#/Vol] 248 10*3/uL 150-450 [facility] Protein Test strip Ql (U)Ord ered By: Dr. Chan on 06-06-2022 Protein Ql (U) 15 mg/dl Negative [facility] Serum or plasma albumin loretta urement (mass/volume)Ordered By: Dr. Chan on 06-06-2022 Albumin [Mass/Vol] 3.5 g/dL 3.2-5.0 [facility] Serum or plasma albumin/glob ulin mass ratioOrdered By: Dr. Chan on 06-06-2022 Albumin/Globulin [Mass ratio] 0.8 {ratio} 0.9-2.4 [facility] Serum or plasma calcium loretta urement (mass/volume)Ordered By: Dr. Chan on 06-06-2022 Calcium [Mass/Vol] 9.1 mg/dL 8.5-10.1 [facility] Serum or plasma creatinine m easurement (mass/volume)Ordered By: Dr. Chan on 06-06-2022 Creatinine [Mass/Vol] 1.06 mg/dL 0.55-1.02 [facility] Comment on above: The validity of the calculated GFR & GFRAA in patients over 70 years has not been determined. Clinical correlation is essential. Serum or plasma urea nitroge n measurement (mass/volume)Ordered By: Dr. Chan on 06-06-2022 Urea nitrogen [Mass/Vol] 31 mg/dL 7-18 [facility] Squamous epithelial cells de tection in urine sediment by light microscopyOrdered By: Dr. Chan on 06-06-2022 Epithelial cells.squamous LM Ql (Urine sed) 0-5 SEEN /hpf 5-10 [facility] Thin prep Papanicolaou smear with manual screeningOrdered By: Dr. Chan on 06-06-2022 Thin prep Papanicolaou smear with manual screening 16 U/L 15-37 [facility] Thin prep Papanicolaou smear with manual screening 9 5-15 [facility] Urine blood detectionOrdered By: Dr. Chan on 06-06-2022 RBC Ql (U) Negative Negative [facility] RBC Ql (U) 0 SEEN /hpf 0-5 [facility] Urine clarityOrdered By: Dr. Chan on 06-06-2022 Clarity (U) Clear Clear [facility] Urine color determinationOrd ered By: Dr. Chan on 06-06-2022 Color (U) Yellow Yellow [facility] Urine glucose detectionOrder ed By: Dr. Chan on 06-06-2022 Glucose Ql (U) Normal mg/dl Normal [facility] Urine leukocyte esterase det ection by dipstickOrdered By: Dr. Chan on 06-06-2022 Leukocyte esterase Test strip Ql (U) 100 /ul Negative [facility] Urine pHOrdered By: Dr. Chan o n 06-06-2022 pH (U) 6.0 [pH] 5.0 - 8.0 [facility] Urine sediment bacteria coun t by microscopy (number/high power field)Ordered By: Dr. Chan on 06-06-2022 Bacteria LM.HPF (Urine sed) [#/Area] 0 /[HPF] None Seen [facility] Urine specific gravity measu rementOrdered By: Dr. Chan on 06-06-2022 Specific gravity (U) [Rel density] 1.020 1.002-1.030 [facility] Urobilinogen Auto test strip Ql (U)Ordered By: Dr. Chan on 06-06-2022 Urobilinogen Ql (U) Normal mg/dl Normal [facility] Laboratory - Microbiology an d Antimicrobial susceptibilityOrdered By: Dr. Garcia on 05-06-2022 SARS-CoV-2 (COVID-19) RNA GERONIMO+probe Ql (Unsp spec) Not detected Not Detect [facility] Comment on above: Normal Reference Ran ge: Not DetectedMethod:(RT-PCR) real-time reverse transcriptase PCRLuminex [employer] Instrument*The Food and Drug Administration (FDA) has issued an Emergency Use Authorization (EAU) for the [employer] SARS-CoV-2 Assay for the rapid detection of [...] Auto (Unsp spec) [#/Vol] 1.49 10*3/uL 0.83-4.51 [facility] Basophil percentageOrdered B y: Dr. Garcia on 03-14-2022 Basophil percentage 0 SEEN /hpf 0-5 [facility] Basophils/100 WBC (Bld) 0.3 % 0-1 [facility] Bilirubin [Mass/Vol] 0.30 mg/dL 0.20-1.00 [facility] Comment on above: For patients on eltr ombopag therapy, use of Dimension [place] TBIL is not recommended. Chloride [Moles/Vol] 108 mmol/L 98-107 [facility] Eosinophils/100 WBC (Bld) 1.5 % 0-5 [facility] Glucose [Mass/Vol] 125 mg/dL 74-106 [facility] Comment on above: Fasting Glucose resu lt from 100 to 125 mg/dL suggests IMPAIRED HOMEOSTASIS per A.D.A. criteria. Lactate [Moles/Vol] 3.2 mmol/L 0.4-2.0 [facility] Comment on above: Critical Result(s) C alled at: 18:20:28 03/14/2022 by: tommy PHILLIPS RN ED. Results read back by same. Neutrophils (Bld) [#/Vol] 4.0 10*3/uL 2.0-7.7 [facility] Neutrophils/100 WBC (Bld) 66.8 % 47-70 [facility] Potassium [Moles/Vol] 4.1 mmol/L 3.5-5.1 [facility] Protein [Mass/Vol] 7.5 g/dL 6.4-8.2 [facility] Sodium [Moles/Vol] 141 mmol/L 136-145 [facility] WBC (Bld) [#/Vol] 6.0 10*3/uL 4.4-11.0 [facility] Bilirubin Test strip Ql (U)O rdered By: Dr. Garcia on 03-14-2022 Bilirubin Ql (U) Negative Negative [facility] Blood erythrocytes count (nu mber/volume)Ordered By: Dr. Garcia on 03-14-2022 RBC (Bld) [#/Vol] 3.71 10*6/uL 4.2-5.4 [facility] Blood hemoglobin measurement (mass/volume)Ordered By: Dr. Garcia on 03-14-2022 Hemoglobin (Bld) [Mass/Vol] 11.6 g/dL 12.0-15.0 [facility] Blood lymphocytes/100 leukoc ytesOrdered By: Dr. Garcia on 03-14-2022 Lymphocytes/100 WBC (Bld) 24.8 % 19-41 [facility] Blood monocytes/100 leukocyt esOrdered By: Dr. Garcia on 03-14-2022 Monocytes/100 WBC (Bld) 6.3 % 0-10 [facility] Blood platelet mean volumeOr dered By: Dr. Garcia on 03-14-2022 Platelet mean volume (Bld) [Entitic vol] 9.9 fL 6.2-12.0 [facility] Determination of erythrocyte mean corpuscular volume (MCV)Ordered By: Dr. Garcia on 03-14-2022 MCV (RBC) [Entitic vol] 96.2 fL 81-99 [facility] Hematocrit Auto (Bld) [Volum e fraction]Ordered By: Dr. Garcia on 03-14-2022 Hematocrit (Bld) [Volume fraction] 35.7 % 37-47 [facility] Ketones Test strip Ql (U)Ord ered By: Dr. Garcia on 03-14-2022 Ketones Ql (U) 15 mg/dl Negative [facility] Laboratory - Chemistry and C hemistry - challengeOrdered By: Dr. Garcia on 03-14-2022 ALP [Catalytic activity/Vol] 84 U/L 45-117 [facility] ALT [Catalytic activity/Vol] 32 U/L 13-56 [facility] CO2 [Moles/Vol] 25.0 mmol/L 21.0-32.0 [facility] Globulin (S) [Mass/Vol] 4.2 g/dL 2.2-4.2 [facility] Urea nitrogen/Creatinine [Mass ratio] 22.6 mg/mg 10-20 [facility] Laboratory - Hematology and Cell countsOrdered By: Dr. Garcia on 03-14-2022 Erythrocyte distribution width (RBC) [Entitic vol] 47.1 fL 35.1-43.9 [facility] Erythrocyte distribution width (RBC) [Ratio] 13.2 % 11.6-14.6 [facility] Immature granulocytes/100 WBC (Bld) 0.300 % 0.0-0.9 [facility] Comment on above: IG% - Immature Granu locytes (promyelocytes, myelocytes and metamyelocytes) > 1% indicates that a LEFT SHIFT is Present. MCH (RBC) [Entitic mass] 31.3 pg 27.0-32.0 [facility] Nucleated RBC/100 WBC (Bld) [Ratio] 0 % 0-5 [facility] MCHC Auto (RBC) [Mass/Vol]Or dered By: Dr. Garcia on 03-14-2022 MCHC (RBC) [Mass/Vol] 32.5 g/dL 32-36 [facility] Mucus LM Ql (Urine sed)Order ed By: Dr. Garcia on 03-14-2022 Mucus Ql (Urine sed) 0 SEEN /hpf [facility] Nitrite Test strip Ql (U)Ord ered By: Dr. Garcia on 03-14-2022 Nitrite Ql (U) Negative Negative [facility] No Panel InformationOrdered By: Dr. Garcia on 03-14-2022 Estimated Creatinine Clearance Calc 45.15 ml/min [facility] Estimated GFR (MDRD) Amer 77 mL/min >60 [facility] Comment on above: GFR Calc Estimated GFR (MDRD) Non-Af Amer 64 mL/min >60 [facility] Comment on above: Non- GFR Calc Troponin I High Sensitivity 18 pg/mL 3.0-54.0 [facility] Comment on above: Please Note: New Gina t Units and Gender Specific Reference Ranges. For more information see Policy Stat Procedure [place] High Sensitivity Troponin (TNIH) and attachments. Valproic Acid (Depakene) Level 42 ug/mL 50-100 [facility] Platelets bldOrdered By: Dr. Garcia on 03-14-2022 Platelets (Bld) [#/Vol] 233 10*3/uL 150-450 [facility] Protein Test strip Ql (U)Ord ered By: Dr. Garcia on 03-14-2022 Protein Ql (U) 15 mg/dl Negative [facility] Serum or plasma albumin loretta urement (mass/volume)Ordered By: Dr. Garcia on 03-14-2022 Albumin [Mass/Vol] 3.3 g/dL 3.2-5.0 [facility] Serum or plasma albumin/glob ulin mass ratioOrdered By: Dr. Garcia on 03-14-2022 Albumin/Globulin [Mass ratio] 0.8 {ratio} 0.9-2.4 [facility] Serum or plasma calcium loretta urement (mass/volume)Ordered By: Dr. Garcia on 03-14-2022 Calcium [Mass/Vol] 9.2 mg/dL 8.5-10.1 [facility] Serum or plasma creatinine m easurement (mass/volume)Ordered By: Dr. Garcia on 03-14-2022 Creatinine [Mass/Vol] 0.93 mg/dL 0.55-1.02 [facility] Comment on above: The validity of the calculated GFR & GFRAA in patients over 70 years has not been determined. Clinical correlation is essential. Serum or plasma urea nitroge n measurement (mass/volume)Ordered By: Dr. Garcia on 03-14-2022 Urea nitrogen [Mass/Vol] 21 mg/dL 7-18 [facility] Squamous epithelial cells de tection in urine sediment by light microscopyOrdered By: Dr. Garcia on 03-14-2022 Epithelial cells.squamous LM Ql (Urine sed) 0-5 SEEN /hpf 5-10 [facility] Thin prep Papanicolaou smear with manual screeningOrdered By: Dr. Garcia on 03-14-2022 Thin prep Papanicolaou smear with manual screening 21 U/L 15-37 [facility] Thin prep Papanicolaou smear with manual screening 8 5-15 [facility] Urine blood detectionOrdered By: Dr. Garcia on 03-14-2022 RBC Ql (U) Negative Negative [facility] RBC Ql (U) 0 SEEN /hpf 0-5 [facility] Urine clarityOrdered By: Dr. Garcia on 03-14-2022 Clarity (U) Clear Clear [facility] Urine color determinationOrd ered By: Dr. Garcia on 03-14-2022 Color (U) Yellow Yellow [facility] Urine glucose detectionOrder ed By: Dr. Garcia on 03-14-2022 Glucose Ql (U) Normal mg/dl Normal [facility] Urine leukocyte esterase det ection by dipstickOrdered By: Dr. Garcia on 03-14-2022 Leukocyte esterase Test strip Ql (U) Negative Negative [facility] Urine pHOrdered By: Dr. Jonathan ryan on 03-14-2022 pH (U) 7.0 [pH] 5.0 - 8.0 [facility] Urine sediment bacteria coun t by microscopy (number/high power field)Ordered By: Dr. Garcia on 03-14-2022 Bacteria LM.HPF (Urine sed) [#/Area] 0 /[HPF] None Seen [facility] Urine specific gravity measu rementOrdered By: Dr. Garcia on 03-14-2022 Specific gravity (U) [Rel density] 1.015 1.002-1.030 [facility] Urobilinogen Auto test strip Ql (U)Ordered By: Dr. Garcia on 03-14-2022 Urobilinogen Ql (U) Normal mg/dl Normal [facility] Absolute lymphocyte counton 01-10-2022 Lymphocytes Auto (Unsp spec) [#/Vol] 1.45 10*3/uL 0.83-4.51 [facility] Work Phone: Basophil percentageon 2021 Basophils/100 WBC (Bld) 0.3 % 0-1 [facility] Work Phone: Bilirubin [Mass/Vol] 0.50 mg/dL 0.20-1.00 [facility] Work Phone: Comment on above: For patients on eltr ombopag therapy, use of Dimension [place] TBIL is not recommended. Chloride [Moles/Vol] 106 mmol/L 98-107 [facility] Work Phone: Cholesterol [Mass/Vol] 195 mg/dL <200 [facility] Work Phone: Comment on above: <200 mg/dL Desirable 200-240 mg/dL Borderline >240 mg/dL High Risk Eosinophils/100 WBC (Bld) 2.9 % 0-5 [facility] Work Phone: Glucose [Mass/Vol] 124 mg/dL 74-106 [facility] Work Phone: Comment on above: Fasting Glucose resu lt from 100 to 125 mg/dL suggests IMPAIRED HOMEOSTASIS per A.D.A. criteria. Neutrophils (Bld) [#/Vol] 2.0 10*3/uL 2.0-7.7 [facility] Work Phone: Neutrophils/100 WBC (Bld) 52.1 % 47-70 [facility] Work Phone: Potassium [Moles/Vol] 4.1 mmol/L 3.5-5.1 [facility] Work Phone: Protein [Mass/Vol] 7.8 g/dL 6.4-8.2 [facility] Work Phone: Sodium [Moles/Vol] 141 mmol/L 136-145 [facility] Work Phone: Triglyceride [Mass/Vol] 92 mg/dL <199 [facility] Work Phone: Comment on above: The drugs N-Acetylcy steine and Metamizole may falsely depress this assay.Serum Triglycerides Reference Interval Normal <150 mg/dL Borderline high 150 - 199 mg/dL High 200 - 499 mg/dL Very High > or = 500 mg/dL WBC (Bld) [#/Vol] 3.8 10*3/uL 4.4-11.0 [facility] Work Phone: Blood erythrocytes count (nu mber/volume)on 01-10-2022 RBC (Bld) [#/Vol] 3.90 10*6/uL 4.2-5.4 [facility] Work Phone: Blood hemoglobin measurement (mass/volume)on 01-10-2022 Hemoglobin (Bld) [Mass/Vol] 12.5 g/dL 12.0-15.0 [facility] Work Phone: Blood lymphocytes/100 leukoc yteson 01-10-2022 Lymphocytes/100 WBC (Bld) 37.9 % 19-41 [facility] Work Phone: Blood monocytes/100 leukocyt eson 01-10-2022 Monocytes/100 WBC (Bld) 6.5 % 0-10 [facility] Work Phone: Blood platelet mean volumeon 01-10-2022 Platelet mean volume (Bld) [Entitic vol] 11.1 fL 6.2-12.0 [facility] Work Phone: Determination of erythrocyte mean corpuscular volume (MCV)on 01-10-2022 MCV (RBC) [Entitic vol] 96.4 fL 81-99 [facility] Work Phone: Hematocrit Auto (Bld) [Volum e fraction]on 01-10-2022 Hematocrit (Bld) [Volume fraction] 37.6 % 37-47 [facility] Work Phone: Laboratory - Chemistry and C hemistry - challengeon 01-10-2022 ALP [Catalytic activity/Vol] 87 U/L 45-117 [facility] Work Phone: ALT [Catalytic activity/Vol] 28 U/L 13-56 [facility] Work Phone: CO2 [Moles/Vol] 29.0 mmol/L 21.0-32.0 [facility] Work Phone: Globulin (S) [Mass/Vol] 4.2 g/dL 2.2-4.2 [facility] Work Phone: Urea nitrogen/Creatinine [Mass ratio] 22.6 mg/mg 10-20 [facility] Work Phone: Laboratory - Hematology and Cell countson 01-10-2022 Erythrocyte distribution width (RBC) [Entitic vol] 48.9 fL 35.1-43.9 [facility] Work Phone: Erythrocyte distribution width (RBC) [Ratio] 13.7 % 11.6-14.6 [facility] Work Phone: Immature granulocytes/100 WBC (Bld) 0.300 % 0.0-0.9 [facility] Work Phone: Comment on above: IG% - Immature Granu locytes (promyelocytes, myelocytes and metamyelocytes) > 1% indicates that a LEFT SHIFT is Present. MCH (RBC) [Entitic mass] 32.1 pg 27.0-32.0 [facility] Work Phone: Nucleated RBC/100 WBC (Bld) [Ratio] 0 % 0-5 [facility] Work Phone: MCHC Auto (RBC) [Mass/Vol]on 01-10-2022 MCHC (RBC) [Mass/Vol] 33.2 g/dL 32-36 [facility] Work Phone: No Panel Informationon 01-10 Estimated GFR (MDRD) Amer 77 mL/min >60 [facility] Work Phone: Comment on above: GFR Calc Estimated GFR (MDRD) Non-Af Amer 64 mL/min >60 [facility] Work Phone: Comment on above: Non- GFR Calc Urine Microalbumin/Creatinine Ratio 7.3 mg/g CRE <30 [facility] Work Phone: Platelets bldon 01-10-2022 Platelets (Bld) [#/Vol] 210 10*3/uL 150-450 [facility] Work Phone: Serum or plasma albumin loretta urement (mass/volume)on 01-10-2022 Albumin [Mass/Vol] 3.6 g/dL 3.2-5.0 [facility] Work Phone: Serum or plasma albumin/glob ulin mass ratioon 01-10-2022 Albumin/Globulin [Mass ratio] 0.9 {ratio} 0.9-2.4 [facility] Work Phone: Serum or plasma calcium loretta urement (mass/volume)on 01-10-2022 Calcium [Mass/Vol] 9.6 mg/dL 8.5-10.1 [facility] Work Phone: Serum or plasma cholesterol in HDL measurement (mass/volume)on 01-10-2022 Cholesterol in HDL [Mass/Vol] 53 mg/dL >40 [facility] Work Phone: Comment on above: The drugs N-Acetylcy steine and Metamizole may falsely depress this assay. Reference Range HDL <40 mg/dL Low HDL Cholesterol HDL >or= 60 mg/dL High HDL Cholesterol Serum or plasma cholesterol in VLDL measurement (mass/volume)on 01-10-2022 Cholesterol in VLDL [Mass/Vol] 18 mg/dL 5-40 [facility] Work Phone: Serum or plasma creatinine m easurement (mass/volume)on 01-10-2022 Creatinine [Mass/Vol] 0.93 mg/dL 0.55-1.02 [facility] Work Phone: Comment on above: The validity of the calculated GFR & GFRAA in patients over 70 years has not been determined. Clinical correlation is essential. Serum or plasma low density lipoprotein (LDL) cholesterol measurement (mass/volume)on 01-10-2022 Cholesterol in LDL [Mass/Vol] 124 mg/dL 0-130 [facility] Work Phone: Serum or plasma urea nitroge n measurement (mass/volume)on 01-10-2022 Urea nitrogen [Mass/Vol] 21 mg/dL 7-18 [facility] Work Phone: Thin prep Papanicolaou smear with manual screeningon 01-10-2022 Thin prep Papanicolaou smear with manual screening 17 U/L 15-37 [facility] Work Phone: Thin prep Papanicolaou smear with manual screening 6 5-15 [facility] Work Phone: Thin prep Papanicolaou smear with manual screening 22.4 mg/L NO RANGE EST. [facility] Work Phone: Urine creatinine measurement (mass/volume)on 01-10-2022 Creatinine (U) [Mass/Vol] 308.00 mg/dL NO RANGE EST. [facility] Work Phone: Whole blood hemoglobin A1c/t otal hemoglobin ratio (mass fraction)on 01-10-2022 HbA1c (Bld) [Mass fraction] 7.3 % 3.8-5.6 [facility] Work Phone: Comment on above: Normal < 5.7 % Predi abetic 5.7 - 6.4 % Diabetic >or= 6.5 % Please note range changes. Absolute lymphocyte counton 01-03-2022 Lymphocytes Auto (Unsp spec) [#/Vol] 2.28 10*3/uL 0.83-4.51 [facility] Work Phone: Basophil percentageon 2021 Basophils/100 WBC (Bld) 0.6 % 0-1 [facility] Work Phone: Bilirubin [Mass/Vol] 0.20 mg/dL 0.20-1.00 [facility] Work Phone: Comment on above: For patients on eltr ombopag therapy, use of Dimension [place] TBIL is not recommended. Chloride [Moles/Vol] 110 mmol/L 98-107 [facility] Work Phone: Eosinophils/100 WBC (Bld) 3.1 % 0-5 [facility] Work Phone: Glucose [Mass/Vol] 154 mg/dL 74-106 [facility] Work Phone: Comment on above: Fasting Glucose resu lt greater than or equal to 126 mg/dL suggests DIABETES MELLITUS per A.D.A. criteria. Neutrophils (Bld) [#/Vol] 2.2 10*3/uL 2.0-7.7 [facility] Work Phone: Neutrophils/100 WBC (Bld) 44.8 % 47-70 [facility] Work Phone: Potassium [Moles/Vol] 3.8 mmol/L 3.5-5.1 [facility] Work Phone: Protein [Mass/Vol] 6.0 g/dL 6.4-8.2 [facility] Work Phone: Sodium [Moles/Vol] 141 mmol/L 136-145 [facility] Work Phone: WBC (Bld) [#/Vol] 4.9 10*3/uL 4.4-11.0 [facility] Work Phone: [phone] Blood erythrocytes count (nu mber/volume)on 01-03-2022 RBC (Bld) [#/Vol] 3.20 10*6/uL 4.2-5.4 [facility] Work Phone: Blood hemoglobin measurement (mass/volume)on 01-03-2022 Hemoglobin (Bld) [Mass/Vol] 10.1 g/dL 12.0-15.0 [facility] Work Phone: Blood lymphocytes/100 leukoc yteson 01-03-2022 Lymphocytes/100 WBC (Bld) 46.4 % 19-41 [facility] Work Phone: Blood monocytes/100 leukocyt eson 01-03-2022 Monocytes/100 WBC (Bld) 4.9 % 0-10 [facility] Work Phone: Blood platelet mean volumeon 01-03-2022 Platelet mean volume (Bld) [Entitic vol] 10.8 fL 6.2-12.0 [facility] Work Phone: Determination of erythrocyte mean corpuscular volume (MCV)on 01-03-2022 MCV (RBC) [Entitic vol] 97.2 fL 81-99 [facility] Work Phone: Glucose Glucometer (BldC) [M ass/Vol]on 01-03-2022 Glucose [Mass/Vol] 107 mg/dL 74-106 [facility] Work Phone: Comment on above: MANAGEMENT OF PATIEN T CARE PER NURSING PROTOCOL Hematocrit Auto (Bld) [Volum e fraction]on 01-03-2022 Hematocrit (Bld) [Volume fraction] 31.1 % 37-47 [facility] Work Phone: Laboratory - Chemistry and C hemistry - challengeon 01-03-2022 ALP [Catalytic activity/Vol] 83 U/L 45-117 [facility] Work Phone: ALT [Catalytic activity/Vol] 23 U/L 13-56 [facility] Work Phone: CO2 [Moles/Vol] 26.0 mmol/L 21.0-32.0 [facility] Work Phone: Globulin (S) [Mass/Vol] 3.4 g/dL 2.2-4.2 [facility] Work Phone: Urea nitrogen/Creatinine [Mass ratio] 22.9 mg/mg 10-20 [facility] Work Phone: Laboratory - Hematology and Cell countson 01-03-2022 Erythrocyte distribution width (RBC) [Entitic vol] 48.3 fL 35.1-43.9 [facility] Work Phone: Erythrocyte distribution width (RBC) [Ratio] 13.4 % 11.6-14.6 [facility] Work Phone: Immature granulocytes/100 WBC (Bld) 0.200 % 0.0-0.9 [facility] Work Phone: Comment on above: IG% - Immature Granu locytes (promyelocytes, myelocytes and metamyelocytes) > 1% indicates that a LEFT SHIFT is Present. MCH (RBC) [Entitic mass] 31.6 pg 27.0-32.0 [facility] Work Phone: Nucleated RBC/100 WBC (Bld) [Ratio] 0 % 0-5 [facility] Work Phone: MCHC Auto (RBC) [Mass/Vol]on 01-03-2022 MCHC (RBC) [Mass/Vol] 32.5 g/dL 32-36 [facility] Work Phone: No Panel Informationon 01-03 Estimated Creatinine Clearance Calc 50.59 ml/min [facility] Work Phone: Estimated GFR (MDRD) Amer 88 mL/min >60 [facility] Work Phone: Comment on above: GFR Calc Estimated GFR (MDRD) Non-Af Amer 73 mL/min >60 [facility] Work Phone: Comment on above: Non- GFR Calc Platelets bldon 01-03-2022 Platelets (Bld) [#/Vol] 181 10*3/uL 150-450 [facility] Work Phone: Serum or plasma albumin loretta urement (mass/volume)on 01-03-2022 Albumin [Mass/Vol] 2.6 g/dL 3.2-5.0 [facility] Work Phone: Serum or plasma albumin/glob ulin mass ratioon 01-03-2022 Albumin/Globulin [Mass ratio] 0.8 {ratio} 0.9-2.4 [facility] Work Phone: Serum or plasma calcium loretta urement (mass/volume)on 01-03-2022 Calcium [Mass/Vol] 8.0 mg/dL 8.5-10.1 [facility] Work Phone: Serum or plasma creatinine m easurement (mass/volume)on 01-03-2022 Creatinine [Mass/Vol] 0.83 mg/dL 0.55-1.02 [facility] Work Phone: Comment on above: The validity of the calculated GFR & GFRAA in patients over 70 years has not been determined. Clinical correlation is essential. Serum or plasma urea nitroge n measurement (mass/volume)on 01-03-2022 Urea nitrogen [Mass/Vol] 19 mg/dL 7-18 [facility] Work Phone: Thin prep Papanicolaou smear with manual screeningon 01-03-2022 Thin prep Papanicolaou smear with manual screening 15 U/L 15-37 [facility] Work Phone: Thin prep Papanicolaou smear with manual screening 5 5-15 [facility] Work Phone: No Panel Informationon 01-02 Troponin I High Sensitivity 5 pg/mL 3.0-54.0 [facility] Work Phone: Comment on above: Please Note: New Gina t Units and Gender Specific Reference Ranges. For more information see Policy Stat Procedure [place] High Sensitivity Troponin (TNIH) and attachments. D-Dimer Quantitative (PE/DVT) 0.57 FEU/ug/m 0.27-0.49 [facility] Work Phone: Comment on above: D-Dimer ELEVATED (>0 .49): Additional studies and clinicalassessments are indicated to conclude diagnosis of:Deep Vein Thrombosis (DVT) or Pulmonary Embolism (PE)CRITICAL VALUE VERIFIED. CALLED TO NIDIA COLLINS (ER)01/02/22 0854 Mynor James.RESULTS READ BACK BY SAME. Basophil percentageon 2021 Basophil percentage 0-5 SEEN /hpf 0-5 [facility] Work Phone: Bilirubin Test strip Ql (U)o n 12-17-2021 Bilirubin Ql (U) Negative Negative [facility] Work Phone: Ketones Test strip Ql (U)on 12-17-2021 Ketones Ql (U) Negative Negative [facility] Work Phone: Mucus LM Ql (Urine sed)on Mucus Ql (Urine sed) RARE /hpf [facility] Work Phone: Nitrite Test strip Ql (U)on 12-17-2021 Nitrite Ql (U) Negative Negative [facility] Work Phone: Protein Test strip Ql (U)on 12-17-2021 Protein Ql (U) Negative Negative [facility] Work Phone: Squamous epithelial cells de tection in urine sediment by light microscopyon 12-17-2021 Epithelial cells.squamous LM Ql (Urine sed) 0-5 SEEN /hpf 5-10 [facility] Work Phone: Urine blood detectionon 12-02 RBC Ql (U) Negative Negative [facility] Work Phone: RBC Ql (U) 0 SEEN /hpf 0-5 [facility] Work Phone: Urine clarityon 12-17-2021 Clarity (U) Clear Clear [facility] Work Phone: Urine color determinationon 12-17-2021 Color (U) Yellow Yellow [facility] Work Phone: Urine glucose detectionon Glucose Ql (U) Normal mg/dl Normal [facility] Work Phone: Urine leukocyte esterase det ection by dipstickon 12-17-2021 Leukocyte esterase Test strip Ql (U) 100 /ul Negative [facility] Work Phone: Urine pHon 12-17-2021 pH (U) 8.0 [pH] 5.0 - 8.0 [facility] Work Phone: Urine sediment bacteria coun t by microscopy (number/high power field)on 12-17-2021 Bacteria LM.HPF (Urine sed) [#/Area] 1 /[HPF] None Seen [facility] Work Phone: Urine specific gravity measu rementon 12-17-2021 Specific gravity (U) [Rel density] 1.015 1.002-1.030 [facility] Work Phone: Urobilinogen Auto test strip Ql (U)on 12-17-2021 Urobilinogen Ql (U) 1 mg/dl Normal [facility] Work Phone: Laboratory - Hematology and Cell countson 11-06-2021 HbA1c (Bld) [Mass fraction] 7.2 % 4.2-6.3 [facility] Work Phone: Absolute lymphocyte counton 10-25-2021 Lymphocytes Auto (Unsp spec) [#/Vol] 2.55 10*3/uL 0.83-4.51 [facility] Work Phone: Basophil percentageon 2021 Basophils/100 WBC (Bld) 0.5 % 0-1 [facility] Work Phone: Bilirubin [Mass/Vol] 0.20 mg/dL 0.20-1.00 [facility] Work Phone: Comment on above: For patients on eltr ombopag therapy, use of Dimension [place] TBIL is not recommended. Chloride [Moles/Vol] 105 mmol/L 98-107 [facility] Work Phone: Eosinophils/100 WBC (Bld) 2.1 % 0-5 [facility] Work Phone: Glucose [Mass/Vol] 188 mg/dL 74-106 [facility] Work Phone: Comment on above: Fasting Glucose resu lt greater than or equal to 126 mg/dL suggests DIABETES MELLITUS per A.D.A. criteria. Neutrophils (Bld) [#/Vol] 3.5 10*3/uL 2.0-7.7 [facility] Work Phone: Neutrophils/100 WBC (Bld) 52.9 % 47-70 [facility] Work Phone: Potassium [Moles/Vol] 4.0 mmol/L 3.5-5.1 [facility] Work Phone: Protein [Mass/Vol] 7.6 g/dL 6.4-8.2 [facility] Work Phone: Sodium [Moles/Vol] 138 mmol/L 136-145 [facility] Work Phone: WBC (Bld) [#/Vol] 6.6 10*3/uL 4.4-11.0 [facility] Work Phone: Blood erythrocytes count (nu mber/volume)on 10-25-2021 RBC (Bld) [#/Vol] 4.16 10*6/uL 4.2-5.4 [facility] Work Phone: Blood hemoglobin measurement (mass/volume)on 10-25-2021 Hemoglobin (Bld) [Mass/Vol] 13.0 g/dL 12.0-15.0 [facility] Work Phone: Blood lymphocytes/100 leukoc yteson 10-25-2021 Lymphocytes/100 WBC (Bld) 38.4 % 19-41 [facility] Work Phone: Blood monocytes/100 leukocyt eson 10-25-2021 Monocytes/100 WBC (Bld) 5.9 % 0-10 [facility] Work Phone: Blood platelet mean volumeon 10-25-2021 Platelet mean volume (Bld) [Entitic vol] 10.6 fL 6.2-12.0 [facility] Work Phone: Determination of erythrocyte mean corpuscular volume (MCV)on 10-25-2021 MCV (RBC) [Entitic vol] 95.4 fL 81-99 [facility] Work Phone: Hematocrit Auto (Bld) [Volum e fraction]on 10-25-2021 Hematocrit (Bld) [Volume fraction] 39.7 % 37-47 [facility] Work Phone: Laboratory - Chemistry and C hemistry - challengeon 06-24-2022 ALP [Catalytic activity/Vol] 92 U/L 45-117 [facility] Work Phone: ALT [Catalytic activity/Vol] 33 U/L 13-56 [facility] Work Phone: CO2 [Moles/Vol] 27.0 mmol/L 21.0-32.0 [facility] Work Phone: Globulin (S) [Mass/Vol] 4.1 g/dL 2.2-4.2 [facility] Work Phone: Lipase [Catalytic activity/Vol] 89 U/L 73-393 [facility] Work Phone: Urea nitrogen/Creatinine [Mass ratio] 20.7 mg/mg 10-20 [facility] Work Phone: Laboratory - Hematology and Cell countson 10-25-2021 Erythrocyte distribution width (RBC) [Entitic vol] 46.5 fL 35.1-43.9 [facility] Work Phone: Erythrocyte distribution width (RBC) [Ratio] 13.1 % 11.6-14.6 [facility] Work Phone: Immature granulocytes/100 WBC (Bld) 0.200 % 0.0-0.9 [facility] Work Phone: Comment on above: IG% - Immature Granu locytes (promyelocytes, myelocytes and metamyelocytes) > 1% indicates that a LEFT SHIFT is Present. MCH (RBC) [Entitic mass] 31.3 pg 27.0-32.0 [facility] Work Phone: Nucleated RBC/100 WBC (Bld) [Ratio] 0 % 0-5 [facility] Work Phone: MCHC Auto (RBC) [Mass/Vol]on 10-25-2021 MCHC (RBC) [Mass/Vol] 32.7 g/dL 32-36 [facility] Work Phone: No Panel Informationon 10-25 Estimated Creatinine Clearance Calc 46.29 ml/min [facility] Work Phone: Estimated GFR (MDRD) Amer 78 mL/min >60 [facility] Work Phone: Comment on above: GFR Calc Estimated GFR (MDRD) Non-Af Amer 64 mL/min >60 [facility] Work Phone: Comment on above: Non- GFR Calc Troponin I High Sensitivity < 3 pg/mL 3.0-54.0 [facility] Work Phone: Comment on above: Please Note: New Gina t Units and Gender Specific Reference Ranges. For more information see Policy Stat Procedure [place] High Sensitivity Troponin (TNIH) and attachments. Platelets bldon 10-25-2021 Platelets (Bld) [#/Vol] 223 10*3/uL 150-450 [facility] Work Phone: Serum or plasma albumin loretta urement (mass/volume)on 10-25-2021 Albumin [Mass/Vol] 3.5 g/dL 3.2-5.0 [facility] Work Phone: Serum or plasma albumin/glob ulin mass ratioon 10-25-2021 Albumin/Globulin [Mass ratio] 0.9 {ratio} 0.9-2.4 [facility] Work Phone: Serum or plasma calcium loretta urement (mass/volume)on 10-25-2021 Calcium [Mass/Vol] 9.1 mg/dL 8.5-10.1 [facility] Work Phone: Serum or plasma creatinine m easurement (mass/volume)on 10-25-2021 Creatinine [Mass/Vol] 0.92 mg/dL 0.55-1.02 [facility] Work Phone: Comment on above: The validity of the calculated GFR & GFRAA in patients over 70 years has not been determined. Clinical correlation is essential. Serum or plasma urea nitroge n measurement (mass/volume)on 10-25-2021 Urea nitrogen [Mass/Vol] 19 mg/dL 7-18 [facility] Work Phone: Thin prep Papanicolaou smear with manual screeningon 06-24-2022 Thin prep Papanicolaou smear with manual screening 22 U/L 15-37 [facility] Work Phone: Thin prep Papanicolaou smear with manual screening 6 5-15 [facility] Work Phone: PROGRESSon 06-03-2018 Protein mass conc HNO ID: [id number] Author: Tila (Pt) Jenelle Service: (none) Author Type: Physical Therapist Type: Progress Notes Filed: 06/03/2018 12:16 PM Note Text: 06/03/2018 [facility] PHYSICAL THERAPY DISCONTINUANCE OF CARE Plan of Care Period: Start of Care Date: 01/05/18 Last Visit Date: 02/25/18 Therapy Program: The following is a summary of the interventions provided for this episode of care; Therapeutic exercise, Neuromuscular re-education, Manual therapy, Patient/Family/Caregiver Education and Modalities: Ultrasound Assessment: The following is the goal status: Goals updated on 02/04/2018. [place] in home exercise program.--MET for current HEP [...] scheduled additional follow-up appointments. Tila Almanzar PT Normal [facility] CNTHERAPYon 02-25-2018 CNTHERAPY OT/PT/Speech Visit (PTWS) -------- LACY ALVARADO ([id number]) 1950 F Date Time Provider Department 02/25/18 7:00 AM TILA ALMANZAR (PT) PTWS Date Time Provider Department Center 02/25/2018 7:00 AM [id number], DIANA (PT)PTWS [facility] Reason for Visit: Physical Therapy [503] [...] CAPSULE,MANDIE* Take 1 capsule by mouth twice* [id number] * Use 3 Drops in the [...] needs. Patient response monitored throughout treatment. Billing: [facility]: Therapeutic Exercise ([id number]): 1:1 time: 36 minutes (2 units: 23-37 mins) Modalities Ultrasound ([id number]) 1:1 time: 8 minutes1 unit: 8-22 mins Total time: 44 minutes Tila Almanzar, PT Tila Almanzar, PT 06/03/2018 12:16 PM Signed 06/03/2018 [facility] PHYSICAL THERAPY DISCONTINUANCE OF CARE Plan of Care Period: Start of Care Date: 01/05/18 Last Visit Date: 02/25/18 Therapy Program: The following is a summary of the interventions provided for this episode of care; Therapeutic exercise, Neuromuscular re-education, Manual therapy, Patient/Family/Caregiver Education and Modalities: Ultrasound Assessment: The following is the goal status: Goals updated on 02/04/2018. [place] in home exercise program.--MET for current HEP [...] follow-up appointments. Tila Almanzar PT -------- [facility] PROGRESSon 02-25-2018 Protein mass conc HNO ID: [id number] Author: Tila Almanzar Service: (none) Author Type: [...] needs. Patient response monitored throughout treatment. Billing: [facility]: Therapeutic Exercise (46223): 1:1 time: 36 minutes (2 units: 23-37 mins) Modalities Ultrasound (08140) 1:1 time: 8 minutes1 unit: 8-22 mins Total time: 44 minutes Tila Almanzar PT [facility] CNOVon 02-22-2018 CNOV Office Visit (PODIWS ) -------- LACY ALVARADO ([id number]) 1950 F Date Time Provider Department 02/22/18 [...] (H) 4.3 - 5.6 % Final Comment: [place] [employer] guidelines indicate that patients with [...] 81 MG TAB Take one(1) tablet daily. hbvwzqhp-sxofeyakw-einyq cortisone (CORTISPORIN) otic solution Use 3 Drops [...] Mynor Flores DPM Referring Provider: MYNOR FLORES [[id number]] Allergies As of Date: 02/22/2018 Noted Allergy [...] [M76.61] Order(s):XR FOOT GENERAL 3V AP/LAT/OBL RT [[id number]] Order #: [id number] FUTURE MRI ANKLE WO IVCON RT [[id number]] Order #: [id number] FUTURE Prescriptions as of 02/22/2018 Sig: VERAPAMIL [...] 81 MG TABLET Take one(1) tablet daily. ZRGQUZBV-OVQDJPKNH-MPDAB NIRU * Use 3 Drops in the [...] by MYNOR FLORES DPM on 02/22/18 [facility] PROGRESSon 02-22-2018 Protein mass conc HNO ID: [id number] Author: Kayli () John Paul Pisano Service: (none) Author Type: Beef Specialist Type: Progress Notes Filed: 02/22/2018 10:36 AM [...] Gretchen February 22, 2018 8:59 AM [facility] Protein mass conc HNO ID: [id number] Author: Mynor Flores Service: (none) Author Type: [...] (H) 4.3 - 5.6 % Final Comment: [place] [employer] guidelines indicate that patients with [...] 81 MG TAB Take one(1) tablet daily. vgimqnqw-watjtsvyu-kxkeo cortisone (CORTISPORIN) otic solution Use 3 Drops [...] interested in surgery. Mynor Flores DPM [facility] Protein mass conc HNO ID: [id number] Author: Carmelita Limon RN Service: (none) Author [...] in the future, possibly next summer. [facility] XR FEMUR 2V AP/LAT RTon 02-02 [...] DEGENERATIVE CHANGES IN THE HIP AND KNEE. Auditing Control Clerk: RADHA Transcribe Date/Time: Feb 22 2018 3:06P Dictated by : CHRIS FRANCIS MD This examination was interpreted and the report reviewed and electronically signed by: CHRIS FRANCIS MD on Feb 22 2018 3:15PM EST [id number] [facility] XR FOOT 3V AP/LAT/OBL RTon 1 [...] NO CHANGE COMPARED TO THE PREVIOUS EXAM. Auditing Control Clerk: [employer] Transcribe Date/Time: Feb 22 2018 3:15P Dictated by : CHRIS FRANCIS MD This examination was interpreted and the report reviewed and electronically signed by: CHRIS FRANCIS MD on Feb 22 2018 3:18PM EST [id number] [facility] CNTHERAPYon 02-18-2018 CNTHERAPY OT/PT/Speech Visit (PTWS) -------- LACY ALVARADO ([id number]) 1950 F Date Time Provider Department 02/18/18 7:00 AM TILA ALMANZAR (PT) PTWS Date Time Provider Department Center 02/18/2018 7:00 AM [id number], DIANA (PT)PTWS [facility] Reason for Visit: Physical Therapy [503] [...] CAPSULE,MANDIE* Take 1 capsule by mouth twice* KJVPJXMO-BHNYLSSFQ-XPCXW NIRU * Use 3 Drops in the [...] TREATMENT NOTE ASSESSMENT: Lacy Mera Jenny demonstrated improvements in R hip and R [...] needs. Patient response monitored throughout treatment. Billing: [facility]: Therapeutic Exercise (64304): 1:1 time: 35 minutes (2 units: 23-37 mins) Modalities Ultrasound (14221) 1:1 time: 8 minutes1 unit: 8-22 mins Total time: 43 minutes Tila Almanzar PT -------- [facility] PROGRESSon 02-18-2018 Protein mass conc HNO ID: [id number] Author: Tila (Pt) Jenelle Service: (none) Author [...] needs. Patient response monitored throughout treatment. Billing: [facility]: Therapeutic Exercise (10761): 1:1 time: 35 minutes (2 units: 23-37 mins) Modalities Ultrasound (02659) 1:1 time: 8 minutes1 unit: 8-22 mins Total time: 43 minutes SARAH Posada [facility] CNTHERAPYon 02-11-2018 CNTHERAPY OT/PT/Speech Visit (PTWS) -------- LACY ALVARADO ([id number]) 1950 F Date Time Provider Department 02/11/18 7:45 AM TILA ALMANZAR (PT) PTWS Date Time Provider Department Center 02/11/2018 7:45 AM [id number], DIANA (PT)PTWS [facility] Reason for Visit: Physical Therapy [503] [...] CAPSULE,MANDIE* Take 1 capsule by mouth twice* IHGMILIB-VCKAZMZSY-LEBKD NIRU * Use 3 Drops in the [...] and compliance. Patient education as noted. Billing: [facility]: Therapeutic Exercise (99522): 1:1 time: 38 minutes (3 units: 38-52 mins) Total time: 38 minutes Tila Almanzar PT -------- [facility] PROGRESSon 02-11-2018 Protein mass conc HNO ID: [id number] Author: Tila (Pt) Jenelle Service: (none) Author [...] and compliance. Patient education as noted. Billing: [facility]: Therapeutic Exercise (36407): 1:1 time: 38 minutes (3 units: 38-52 mins) Total time: 38 minutes Tila Almanzar PT [facility] CNTHERAPYon 02-04-2018 CNTHERAPY OT/PT/Speech Visit (PTWS) -------- JENNYLACY Ede ([id number]) 1950 F Date Time Provider Department 02/04/18 7:45 AM TILA ALMANZAR (PT) PTWS Date Time Provider Department Center 02/04/2018 7:45 AM [id number], DIANA (PT)PTWS [facility] Reason for Visit: PT Progress Note [...] CAPSULE,MANDIE* Take 1 capsule by mouth twice* FLJWDUZR-ZXOBXNXXF-IYXBL NIRU * Use 3 Drops in the [...] intensity of pain Goals updated on 02/04/2018. [place] in home exercise program.--MET for current HEP [...] be seen for Therapeutic exercise;Neuromuscular re-education;Manual therapy;Therapeutic activities;Self-long term management;Gait Training;Patient/Family/ Caregiver Education;Modalities;Fun ctional training;General Conditioning [...] provided in selection of appropriate interventions. Billing: [facility]: Therapeutic Exercise (83895): 1:1 time: 20 minutes (1 unit: 8-22 mins) Total time: 20 minutes Tila Almanzar, PT -------- [facility] PROGRESSon 02-04-2018 Protein mass conc HNO ID: [id number] Author: Tila (Pt) Jenelle Service: (none) Author [...] intensity of pain Goals updated on 02/04/2018. [place] in home exercise program.--MET for current HEP [...] be seen for Therapeutic exercise;Neuromuscular re-education;Manual therapy;Therapeutic activities;Self-long term management;Gait Training;Patient/Family/ Caregiver Education;Modalities;Fun ctional training;General Conditioning [...] provided in selection of appropriate interventions. Billing: [facility]: Therapeutic Exercise (61866): 1:1 time: 20 minutes (1 unit: 8-22 mins) Total time: 20 minutes SARAH Posada [facility] CNTHERAPYon 02-02-2018 CNTHERAPY OT/PT/Speech Visit (PTWS) -------- LACY ALVARADO ([id number]) 1950 Date Time Provider Department 02/02/18 7:45 AM TILA ALMANZAR (PT) PTWS Date Time Provider Department Center 02/02/2018 7:45 AM [id number], DIANA (PT)PTWS [facility] Reason for Visit: Physical Therapy [503] [...] CAPSULE,MANDIE* Take 1 capsule by mouth twice* HKSRXMDM-NIMOZBKGR-DKAZC NIRU * Use 3 Drops in the [...] 2x12 11: Step ups on green step (4") 1x12 leading with R and L 12: [...] Manual Therapy: 1: Prone: IASTM with [employer] Scanner for 13 minutes to R achillies tendon Skilled Intervention: Manual skills to improve joint mobility, ROM, and decrease pain. Utilized anatomy knowledge of the therapist, and assessment of patient's response to intervention. Billing: [facility]: Therapeutic Exercise (10541): 1:1 time: 22 minutes (1 unit: 8-22 mins) Manual Therapy (79599): 1:1 time: 13 minutes (1 unit: 8-22 mins) Total time: 35 minutes Tila Almanzar PT -------- [facility] PROGRESSon 02-02-2018 Protein mass conc HNO ID: [id number] Author: Tila (Pt) Jenelle Service: (none) Author [...] 2x12 11: Step ups on green step (4") 1x12 leading with R and L 12: [...] Manual Therapy: 1: Prone: IASTM with [employer] Scanner for 13 minutes to R achillies tendon Skilled Intervention: Manual skills to improve joint mobility, ROM, and decrease pain. Utilized anatomy knowledge of the therapist, and assessment of patient's response to intervention. Billing: [facility]: Therapeutic Exercise (94438): 1:1 time: 22 minutes (1 unit: 8-22 mins) Manual Therapy (21805): 1:1 time: 13 minutes (1 unit: 8-22 mins) Total time: 35 minutes Tila Almanzar PT [facility] PROGRESSon 01-31-2018 Protein mass conc HNO ID: [id number] Author: Tila (Pt) Jenelle Service: (none) Author [...] 2x10 11: Step ups on green step (4") 1x12 leading with R and L 12: BAPS Board PWB Level 1 on the RIGHT: DF/PF, side to side, CW/CCW x10 of each 13: Side stepping on blue foam x4 with B UE support Skilled Intervention: Patient was educated in proper exercise technique and purpose for exercises. Skilled judgment was provided in selection of appropriate interventions. Manual Therapy: 1: Prone: IASTM with [employer] Scanner for 8 minutes to R achillies [...] needs. Patient response monitored throughout treatment. Billing: [facility]: Therapeutic Exercise (33950): 1:1 time: 20 minutes (2 units: 23-37 mins) Manual Therapy (44593): 1:1 time: 12 minutes (1 unit: 8-22 mins) Modalities Ultrasound (23572) 1:1 time: 10 minutes1 unit: 8-22 mins Total time: 42 minutes SARAH Posada [facility] CNTHERAPYon 01-28-2018 CNTHERAPY OT/PT/Speech Visit (PTWS) -------- LACY ALVARADO ([id number]) 1950 F Date Time Provider Department 01/28/18 7:45 AM TILA ALMANZARPT) PTWS Date Time Provider Department Center 01/28/2018 7:45 AM [id number], DIANA (PT)PTWS [facility] Reason for Visit: Physical Therapy [503] [...] CAPSULE,MANDIE* Take 1 capsule by mouth twice* CIEMQUSF-DOQUOEZVI-FIFWQ NIRU * Use 3 Drops in the [...] 2x10 11: Step ups on green step (4") 1x12 leading with R and L 12: BAPS Board PWB Level 1 on the RIGHT: DF/PF, side to side, CW/CCW x10 of each 13: Side stepping on blue foam x4 with B UE support Skilled Intervention: Patient was educated in proper exercise technique and purpose for exercises. Skilled judgment was provided in selection of appropriate interventions. Manual Therapy: 1: Prone: IASTM with [employer] Scanner for 8 minutes to R achillies [...] needs. Patient response monitored throughout treatment. Billing: [facility]: Therapeutic Exercise (09511): 1:1 time: 20 minutes (2 units: 23-37 mins) Manual Therapy (10633): 1:1 time: 12 minutes (1 unit: 8-22 mins) Modalities Ultrasound (75798) 1:1 time: 10 minutes1 unit: 8-22 mins Total time: 42 minutes Tila Almanzar PT -------- [facility] PROGRESSon 01-27-2018 Protein mass conc HNO ID: [id number] Author: Tila (Pt) Jenelle Service: (none) Author [...] up she had not problems. Tried [employer] scanner tool for IASTM and Kinesiotaping. Will assess at next session. The patient will continue to benefit from continued skilled physical therapy for thex ex, manual, and US for pain control of R heel pain. PLAN FOR NEXT VISIT: See how liked [employer] tools and kinesiotape; BAPS Board for Ankle [...] 2x10 11: Step ups on green step (4") 1x10 leading with R and L Skilled [...] cuing. Manual Therapy: 1: Prone: IASTM with [employer] Scanner for 6 minutes to R achillies [...] needs. Patient response monitored throughout treatment. Billing: [facility]: Therapeutic Exercise (14605): 1:1 time: 20 minutes (1 unit: 8-22 mins) Manual Therapy (48013): 1:1 time: 15 minutes (1 unit: 8-22 mins) Modalities Ultrasound (72260) 1:1 time: 10 minutes1 unit: 8-22 mins Total time: 45 minutes Tila Almanzar PT [facility] CNTHERAPYon 01-26-2018 CNTHERAPY OT/PT/Speech Visit (PTWS) -------- LACY ALVARADO ([id number]) 1950 F Date Time Provider Department 01/26/18 7:00 AM TILA ALMANZAR (PT) PTWS Date Time Provider Department Center 01/26/2018 7:00 AM [id number], DIANA (PT)PTWS [facility] Reason for Visit: Physical Therapy [503] [...] CAPSULE,MANDIE* Take 1 capsule by mouth twice* SMHFEZQC-LKXWPXCLM-ZXYUE NIRU * Use 3 Drops in the [...] tablet daily. Progress Notes: Tila Almanzar, PT 01/27/2018 12:42 PM Signed Episode Visit [...] up she had not problems. Tried [employer] scanner tool for IASTM and Kinesiotaping. Will assess at next session. The patient will continue to benefit from continued skilled physical therapy for thex ex, manual, and US for pain control of R heel pain. PLAN FOR NEXT VISIT: See how liked [employer] tools and kinesiotape; BAPS Board for Ankle [...] 2x10 11: Step ups on green step (4") 1x10 leading with R and L Skilled [...] Manual Therapy: 1: Prone: IASTM with [employer] Scanner for 6 minutes to R achillies [...] needs. Patient response monitored throughout treatment. Billing: [facility]: Therapeutic Exercise (30322): 1:1 time: 20 minutes (1 unit: 8-22 mins) Manual Therapy (53812): 1:1 time: 15 minutes (1 unit: 8-22 mins) Modalities Ultrasound (21610) 1:1 time: 10 minutes1 unit: 8-22 mins Total time: 45 minutes Tila Almanzar PT -------- [facility] PROGRESSon 01-24-2018 Protein mass conc HNO ID: [id number] Author: Tila (PtJeanie Almanzar Service: (none) Author [...] a little when walking but it is "ok" per patient. Patient will be getting her [...] needs. Patient response monitored throughout treatment. Billing: [facility]: Therapeutic Exercise (04642): 1:1 time: 19 minutes (1 unit: 8-22 mins) Manual Therapy (63983): 1:1 time: 8 minutes (1 unit: 8-22 mins) Modalities Ultrasound (51379) 1:1 time: 15 minutes1 unit: 8-22 mins Total time: 42 minutes Tila Almanzar PT [facility] CNTHERAPYon 01-21-2018 CNTHERAPY OT/PT/Speech Visit (PTWS) -------- LACY ALVARADO ([id number]) 1950 F Date Time Provider Department 01/21/18 7:45 AM TILA ALMANZAR (PT) PTWS Date Time Provider Department Center 01/21/2018 7:45 AM [id number], DIANA (PT)PTWS [facility] Reason for Visit: Physical Therapy [503] [...] CAPSULE,MANDIE* Take 1 capsule by mouth twice* KFMBURQZ-AJJDCLWBZ-PZUPC NIRU * Use 3 Drops in the [...] a little when walking but it is "ok" per patient. Patient will be getting her [...] needs. Patient response monitored throughout treatment. Billing: [facility]: Therapeutic Exercise (16530): 1:1 time: 19 minutes (1 unit: 8-22 mins) Manual Therapy (32061): 1:1 time: 8 minutes (1 unit: 8-22 mins) Modalities Ultrasound (44289) 1:1 time: 15 minutes1 unit: 8-22 mins Total time: 42 minutes Tila Almanzar PT -------- [facility] CNTHERAPYon 01-12-2018 CNTHERAPY OT/PT/Speech Visit (PTWS) -------- LACY ALVARADO ([id number]) 1950 F Date Time Provider Department 01/12/18 7:00 AM TILA ALMANZAR (PT) PTWS Date Time Provider Department Center 01/12/2018 7:00 AM [id number], DIANA (PT)PTWS [facility] Reason for Visit: Physical Therapy [503] [...] CAPSULE,MANDIE* Take 1 capsule by mouth twice* PSYFOOJS-ULTCIBYFA-XJVKX NIRU * Use 3 Drops in the [...] needs. Patient response monitored throughout treatment. Billing: [facility]: Therapeutic Exercise (11850): 1:1 time: 20 minutes (1 unit: 8-22 mins) Manual Therapy (26785): 1:1 time: 8 minutes (1 unit: 8-22 mins) Modalities Ultrasound (72850) 1:1 time: 15 minutes1 unit: 8-22 mins Total time: 43 minutes Tila Almanzar PT -------- [facility] PROGRESSon 01-12-2018 Protein mass conc HNO ID: [id number] Author: Tila (Pt) Jenelle Service: (none) Author [...] needs. Patient response monitored throughout treatment. Billing: [facility]: Therapeutic Exercise (85970): 1:1 time: 20 minutes (1 unit: 8-22 mins) Manual Therapy (24826): 1:1 time: 8 minutes (1 unit: 8-22 mins) Modalities Ultrasound (70276) 1:1 time: 15 minutes1 unit: 8-22 mins Total time: 43 minutes Tila Almanzar PT [facility] CNOVon 01-11-2018 CNOV Office Visit (PODIWS ) -------- LACY ALVARADO ([id number]) 1950 F Date Time Provider Department 01/11/18 9:10 AM MYNOR FLORES During your visit today, we recorded the following information about you: Mynor Flores DPM 01/11/2018 9:48 AM Signed ? Mynor Flores DPM Department of Podiatry [facility] [address] [facility] [address] Dept: [phone] Dept 01/11/2018 Follow Up Podiatric Office Visit: HPI: Lacy Alvarado is a 67 year old female. Patient presents to discuss options for Tere Randhawa. She has constant pain to R heel that is achy with intermittent burning. She just started physical therapy last week and is "coming along". She had vascular studies on 12/17/17 showing [...] Take 1 capsule by mouth twice daily. 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 Mynor Flores DPM Department of Podiatry [address] [facility] [address] Dept: [phone] Dept 01/11/2018 Follow Up Podiatric Office Visit: HPI: Lacy Alvarado is a 67 year old female. Patient presents to discuss options for Berenices R. She has constant pain to R heel that is achy with intermittent burning. She just started physical therapy last week and is "coming along". She had vascular studies on 12/17/17 showing [...] Take 1 capsule by mouth twice daily. 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 Patient response monitored throughout treatment. Billing: [facility]: Therapeutic Exercise (93262): 1:1 time: 15 minutes (1 unit: 8-22 mins) Modalities Ultrasound (60013) 1:1 time: 15 minutes1 unit: 8-22 mins Total time: 30 minutes Tila Almanzar PT -------- [facility] PROGRESSon 01-07-2018 Protein mass conc HNO ID: [id number] Author: Tila (Pt) Jenelle Service: (none) Author [...] needs. Patient response monitored throughout treatment. Billing: [facility]: Therapeutic Exercise (10437): 1:1 time: 15 minutes (1 unit: 8-22 mins) Modalities Ultrasound (94926) 1:1 time: 15 minutes1 unit: 8-22 mins Total time: 30 minutes SARAH Posada [facility] CNTHERAPYon 01-05-2018 CNTHERAPY OT/PT/Speech Visit (PTWS) -------- LACY ALVARADO ([id number]) 1950 Date Time Provider Department 01/05/18 7:00 AM TILA ALMANZAR (PT) PTWS Date Time Provider Department Center 01/05/2018 7:00 AM [id number], DIANA (PT)PTWS [facility] Reason for Visit: PT Eval [747] [...] CAPSULE,MANDIE* Take 1 capsule by mouth twice* WNLWENVF-PAZVCQMSS-NGXQZ NIRU * Use 3 Drops in the [...] of Care: created on 01/05/18 through 03/16/18 [employer] [place] in home exercise program. Patient will decrease [...] Planned Treatment Interventions: Therapeutic exercise;Neuromuscular re-education;Manual therapy;Therapeutic activities;Self-long term management;Gait Training;Patient/Family/ Caregiver Education;Modalities;Fun ctional training;General ConditioningUltrasound [...] loves to wear high heels that are 3-4" high. 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 Self-Senior Living Management: 1: Recommended to stop wearing high heels as this causes increased R heel symptoms to her "pump bump" 2: Educated and recommended patient wear supportive tennis shoes when she works. 3: Suggested trying to wear knee high compression stockings to help with ankle swelling. R ankle and calf measurements provided Skilled Intervention: Skilled judgment in the selection of proper modification for activity of daily living/home management based on clinical presentation, deficits, and needs. Billing: [facility]: Evaluation - Low Complexity (40103) Therapeutic Exercise (20587): 1:1 time: 15 minutes (1 unit: 8-22 mins) Educ Home Mgmt (20844): 1:1 time: 10 minutes (1 unit: 8-22 mins) Total time: 38 minutes Tila Almanzar PT -------- [facility] PROGRESSon 01-05-2018 Protein mass conc HNO ID: [id number] Author: Tila Almanzar Service: (none) Author Type: [...] of Care: created on 01/05/18 through 03/16/18 [place] in home exercise program. Patient will decrease [...] Planned Treatment Interventions: Therapeutic exercise;Neuromuscular re-education;Manual therapy;Therapeutic activities;Self-long term management;Gait Training;Patient/Family/ Caregiver Education;Modalities;Fun ctional training;General ConditioningUltrasound [...] loves to wear high heels that are 3-4" high. 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 Self-Senior Living Management: 1: Recommended to stop wearing high heels as this causes increased R heel symptoms to her "pump bump" 2: Educated and recommended patient wear supportive tennis shoes when she works. 3: Suggested trying to wear knee high compression stockings to help with ankle swelling. R ankle and calf measurements provided Skilled Intervention: Skilled judgment in the selection of proper modification for activity of daily living/home management based on clinical presentation, deficits, and needs. Billing: [facility]: Evaluation - Low Complexity (47319) Therapeutic Exercise (22609): 1:1 time: 15 minutes (1 unit: 8-22 mins) Educ Home Mgmt (51030): 1:1 time: 10 minutes (1 unit: 8-22 mins) Total time: 38 minutes Tila Almanzar PT [facility] Ruddy 12-09-2017 CNOV Office Visit (PODIWS ) -------- LACY ALVARADO ([id number]) 1950 F Date Time Provider Department 12/09/17 7:55 AM MYNOR FLORES During your visit today, we recorded the following information about you: Mynor Flores DPM 12/09/2017 8:20 AM Signed ? Mynor Flores DPM Department of Podiatry [facility] [address] [facility] [address] Dept: [phone] Dept 12/09/2017 Follow Up Podiatric Office Visit: [...] Take 1 capsule by mouth twice daily. 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 Lives with son in [place] REVIEW OF SYSTEMS: CONSTITUTIONAL: No fevers, chills, [...] Mynor Flores DPM Referring Provider: MYNOR FLORES [[id number]] Allergies As of Date: 12/09/2017 Noted Allergy [...] [R09.89] Order(s):PVR ANK PRESS [facility] [[id number]] Order #: [id number] FUTURE CONSULT TO PHYSICAL THERAPY [9032] Order #: [id number]: 1 Prescriptions as of 12/09/2017 Sig: VERAPAMIL [...] CAPSULE,MANDIE* Take 1 capsule by mouth twice* [id number]-EHBSLZIVG-[id number] NIRU * Use 3 Drops in the [...] by MYNOR FLORES DPM on 12/09/17 [facility] PROGRESSon 12-09-2017 Protein mass conc HNO ID: [id number] Author: Mynor Flores Service: (none) Author Type: Physician Type: Progress Notes Filed: 12/09/2017 8:20 AM Note Text: ? Mynor Flores DPM Department of Podiatry [address] [place] [address] Dept: [phone] Dept 12/09/2017 Follow Up Podiatric Office Visit: HPI: Lacy Alvarado is a 67 year old female. Patient presents for follow up of Tere Mcadams. Patient reports constant pain to R heel. [...] Take 1 capsule by mouth twice daily. 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 Jossue Finley MD 10/15/2017 4:13 PM Signed Jossue Finley MD Department of Orthopaedics [facility] [address] [facility] [address] Dept: [phone] Dept October 15, 2017 CHIEF COMPLAINT: new [...] MD Imaging: IMPRESSION: MILD DEGENERATIVE JOINT DISEASE. Auditing Control Clerk: RADHA ? Transcribe Date/Time: Oct 14 2017 [...] 81 MG TAB Take one(1) tablet daily. cfxcpaom-ntebaeeno-nzrcg cortisone (CORTISPORIN) otic solution Use 3 Drops [...] anxiety) This note was partially generated using [employer] voice recognition system, and there may be some incorrect words, spellings, and punctuation that were not noted in checking the note before saving. Jossue Finley MD Referring Provider: JOSSUE FINLEY [[id number]] Allergies As of Date: 10/15/2017 Noted Allergy [...] 81 MG TABLET Take one(1) tablet daily. [id number]-IUPQDSOCJ-LGKGA NIRU * Use 3 Drops in the [...] BUILDER 10/15/2017 10/15/2017 Class: Suppress Questions Route: [facility] Encounter Status:Closed by JOSSUE FINLEY MD on 10/15/17 [facility] PROGRESSon 10-15-2017 Protein mass conc HNO ID: [id number] Author: Jossue Finley Service: (none) Author Type: Physician Type: Progress Notes Filed: 10/15/2017 4:13 PM Note Text: Jossue Finley MD Department of Orthopaedics Orthopaedics [address] [facility] [address] Dept: [phone] Dept October 15, 2017 CHIEF COMPLAINT: new [...] MD Imaging: IMPRESSION: MILD DEGENERATIVE JOINT DISEASE. Auditing Control Clerk: RADHA ? Transcribe Date/Time: Oct 14 2017 [...] - COLONOSCOP W/ OR W/O [facility] SPEC 01/12/2013 Colonoscopy - EGD [...] 81 MG TAB Take one(1) tablet daily. gpxpvrcc-ruhbshpoi-nqlud cortisone (CORTISPORIN) otic solution Use 3 Drops [...] anxiety) This note was partially generated using [employer] voice recognition system, and there may be some incorrect words, spellings, and punctuation that were not noted in checking the note before saving. Jossue Finley MD [facility] Protein mass conc HNO ID: [id number] Author: Norma Leone RN Service: (none) Author [...] 1997 to clean out knee afterward to "clean out scar tissue". [facility] PROGRESSon 10-14-2017 Protein mass conc HNO ID: [id number] Author: John Paul Frias (Tech) Service: (none) Author Type: Beef Specialist Type: Progress Notes Filed: 10/14/2017 9:03 AM [...] Dozier October 14, 2017 9:02 AM [facility] XR KNEE 4V AP/PA BOTH+LAT/ME R [...] No fracture. IMPRESSION: MILD DEGENERATIVE JOINT DISEASE. Auditing Control Clerk: RADHA Transcribe Date/Time: Oct 14 2017 12:16P Dictated by : CHRIS FRANCIS MD This examination was interpreted and the report reviewed and electronically signed by: CHRIS FRANCIS MD on Oct 14 2017 12:20PM EST [id number] [facility] CNCOon 07-20-2017 CNCO HNO ID: [id number] Author: Mammography Coordinator Service: (none) Author Type: Physician Type: Letter Filed: 07/21/2017 11:31 PM Note Text: July 20, 2017 PID: [id number] Lacy Alvarado [address] [place] [address] Dear Ms. Alvarado, We are pleased to [...] report will be kept on file at [facility] as part of your permanent medical record and are available for your continuing care. Thank you for allowing us to help in meeting your health care needs. Sincerely, Dr. Jaime Interpreting Radiologist [facility] (Normal over 40) [facility] Lipid Panel, [place] 018 Cholesterol in HDL mass conc 49 mg/dL Normal >39 [facility] Comment on above: Result Comment: 40-5 9 mg/dL, Acceptable >59 mg/dL, High: Negative risk factor for coronary heart disease <40 mg/dL, Low: Positive risk factor for coronary heart disease Performed By: #### L IPB #### [facility] [address] [place], [place] [address] Cholesterol in LDL mass conc 157 mg/dL High <100 [facility] Comment on above: Result Comment: <100 mg/dL, Optimal 100-129 mg/dL, Near optimal/above optimal 130-159 mg/dL, Borderline high 160-189 mg/dL, High >189 mg/dL, Very high Secondary prevention optimal LDL Cholesterol levels are recommended to be < 70 mg/dL Performed By: #### L IPB #### [facility] [address] [place], [place] [address] Cholesterol mass conc 225 mg/dL High <200 [facility] Comment on above: Result Comment: <200 mg/dL, Desirable 200-239 mg/dL, Borderline high >239 mg/dL, High Performed By: #### L IPB #### [facility] [address] [place], [place] [address] Fasting Time 2 hrs [facility] Comment on above: Performed By: #### L IPB #### [facility] [address] [place] [address] LDL:HDL Ratio 3.20 High <2.54 [facility] Comment on above: Result Comment: Refe rence: 1. National Cholesterol Education Program ATP III Guideline At-A-Glance Quick Desk Reference: National Heart, Lung, and Blood Parnell. National Institutes of Health. 2001: NIH Publication No. 01-3305. 2. An International Atherosclerosis Society position paper: global recommendations for the management of dyslipidemia: executive summary, Atherosclerosis. 2014: 232(2):410-413. Performed By: #### L IPB #### [facility] [address] [place] [address] Non HDL Cholesterol 176 mg/dL High <130 [facility] Comment on above: Result Comment: <130 mg/dL, Optimal 130-159 mg/dL, Near optimal/above optimal 160-189 mg/dL, Borderline high 190-219 mg/dL, High >219 mg/dL, Very high Secondary prevention optimal non HDL Cholesterol levels are recommended to be < 100 mg/dL Performed By: #### L IPB #### [facility] [address] [place] [address] TC:HDL Ratio 4.59 Normal <5.10 [facility] Comment on above: Performed By: #### L IPB #### [facility] [address] [place] [address] Triglyceride mass conc 97 mg/dL Normal <150 [facility] Comment on above: Result Comment: <150 mg/dL, Normal 150-199 mg/dL, Borderline high 200-499 mg/dL, High >499 mg/dL, Very high Performed By: #### L IPB #### [facility] [address] [place], [place] [address] VLDL Cholesterol 19 mg/dL Normal <30 [facility] Comment on above: Performed By: #### L IPB #### [facility] [address] [place] [address] [facility] SCREENINGon 07-20-2017 HAYLEE SCREENING * * *Final Report* * * DATE OF EXAM: Jul 20 2017 8:44AM WOW [id number] - [facility] SCREENING / PROCEDURE REASON: Encounter for screening mammogram for malignant neoplasm of breast * * * * Physician Interpretation * * * * RESULT: #[id number] - HAYLEE SCREENING BILATERAL DIGITAL SCREENING MAMMOGRAM WITH CAD: 07/20/2017 HISTORY: Encounter For Screening Mammogram For Malignant Neoplasm Of Breast\\ Screening Mammogram - patient reports NO breast symptoms /priors available for comparison. RESULT: TECHNIQUE: The study was acquired using full field digital technology and interpreted from soft copy. Current study was also evaluated with a Computer Aided Detection (CAD). Comparison is made to exams dated: 03/11/2016 mammogram - [facility] and 12/19/2014 mammogram - [facility]. There are scattered fibroglandular elements in both breasts. No significant masses, calcifications, or other findings are seen in either breast. There has been no significant interval change. IMPRESSION: NEGATIVE There is no mammographic evidence of malignancy.A 1 year screening mammogram is recommended. Nilay Jaime M.D. cp/madeline:07/20/2017 09:15:21 Pool Finisher: Brielle BLANDON)(Raymundo), [facility] letter sent: Normal over 40 Mammogram BI-RADS: 1 Negative Auditing Control Clerk: Madeline Transcribe Date/Time: Jul 20 2017 8:46A Dictated by: NILAY JAIME MD This examination was interpreted and the report reviewed and electronically signed by: NILAY JAIME MD on Jul 20 2017 9:15AM EST [id number] [facility] CNOVon 02-09-2017 CNOV Office Visit (AGCARDWST) LACY REDDY ([id number]) 1950 FDate Time Provider Enlplvjtqa92/9/17 9:00 AM CHRIS YAO AGCARDWST During your visit today, we recorded the following information about you: Pulse Blood pressure Weight 88/minute 136/74 78.1 kgKenneth E. Ricardo, MD 02/09/2017 5:28 PM SignedPERTINENT CARDIAC HISTORYRichmond University Medical CenterLINICAL IMPRESSION/PLAN:Lacy Alvarado is doing well. She's been [...] with treatment plan.This note was generated using [employer] voice recognition system, and there may besome [...] to 118.Electronically Signed:Chris Yao MDOctober 2016 9:06 [facility]: Kasie Pink, MDReferring Provider: SHAD BRISENO [[id number]]Allergies As of Date: 02/09/2017 Noted Allergy ReactionSEASONAL [...] CAPSULE,MANDIE* Take 1 capsule by mouth twice* UFRFVCWE-OSJRJHDZD-QCPLZ NIRU * Use 3 Drops in the [...] INVALID FOR*07/17/2014 DM2 (diabetes mellitus, type 2) ([facility]) [E11.9] INVALID FOR* More... Thoracic or lumbosacral [...] SmartForms filed during this visit:Extended VitalsEncounter Number: [id number] Status:Closed by CHRIS YAO MD on 02/09/17 [facility] PROGRESSon 02-09-2017 PROGRESS HNO ID: [id number]: Chris Pelayo: (none)Author Type: PhysicianType: Progress NotesFiled: 02/09/2017 5:28 PMNote Text:PERTINENT CARDIAC HISTORYChest painHLNOVANT HEALTH ROWAN MEDICAL CENTERLINICAL IMPRESSION/PLAN:Lacy Alvarado is doing well. She's been [...] with treatment plan.This note was generated using [employer] voice recognition system, and theremay be some [...] LDL has improved to 118.Electronically Signed:Chris Yao MDMackinac Straits Hospital 2016 9:06 [facility]: Kasie Pink MD [facility] No Panel Information SARS-CoV-2 & FLU Antigen (Rapid) [facility] Work Phone: S. pyogenes Ag IF Ql (Throat ) S. pyogenes Ag IA Ql (Unsp spec) [facility] Work Phone: Vital Signs Date Time Vital Sign Value Performing Clinician Facility 01-30-2025 14:11040 Body height 157.[address] Mayda Garcia MD Work Phone: [facility] 01-30-2025 14:11-040 Body mass index (BMI) [Ratio] 30.7 kg/m2 Dr. Mayda Garcia MD Work Phone: [facility] 01-30-2025 14:11-040 Body temperature 98 [degF] Dr. Mayda Garcia MD Work Phone: [facility] 01-30-2025 14:11-040 Body weight 76.[address] Mayda Garcia MD Work Phone: [facility] 01-30-2025 14:11-0400 Diastolic blood pressure 77 mm[Hg] Dr. Mayda Garcia MD Work Phone: [facility] 01-30-2025 14:11-0400 Heart rate 84 /min Dr. Mayda Garcia MD Work Phone: [facility] 01-30-2025 14:11-0400 Respiratory rate 17 /min Dr. Mayda Garcia MD Work Phone: [facility] 01-30-2025 14:11-0400 SaO2% (BldA) [Mass fraction] 97 % Dr. Mayda Garcia MD Work Phone: [facility] 01-30-2025 14:11-0400 Systolic blood pressure 130 mm[Hg] Dr. Mayda Garcia MD Work Phone: [facility] 01-26-2025 12:34-0400 Body mass index (BMI) [Ratio] 30.7 kg/m2 Dr. Mayda Garcia MD Work Phone: [facility] 01-26-2025 12:34-0400 Body temperature 97.9 [degF] Dr. Mayda Garcia MD Work Phone: [facility] 01-26-2025 12:34-0400 Body weight 76.[address] Mayda Garcia MD Work Phone: [facility] 01-26-2025 12:34-0400 Diastolic blood pressure 83 mm[Hg] Dr. Mayda Garcia MD Work Phone: [facility] 01-26-2025 12:34-0400 Heart rate 78 /min Dr. Mayda Garcia MD Work Phone: [facility] 01-26-2025 12:34-0400 Respiratory rate 16 /min Dr. Mayda Garcia MD Work Phone: [facility] 01-26-2025 12:34-0400 SaO2% (BldA) [Mass fraction] 98 % Dr. Mayda Garcia MD Work Phone: [facility] 01-26-2025 12:34-0400 Systolic blood pressure 144 mm[Hg] Dr. Mayda Garcia MD Work Phone: [facility] 01-23-2025 07:16-0400 Body mass index (BMI) [Ratio] 30.9 kg/m2 Dr. Mayda Garcia MD Work Phone: [facility] 01-23-2025 07:16-0400 Body weight 76.[address] Mayda Garcia MD Work Phone: [facility] 01-23-2025 07:16-0400 Diastolic blood pressure 80 mm[Hg] Dr. Mayda Garcia MD Work Phone: [facility] 01-23-2025 07:16-0400 Heart rate 88 /min Dr. Mayda Garcia MD Work Phone: [facility] 01-23-2025 07:16-0400 Respiratory rate 18 /min Dr. Mayda Garcia MD Work Phone: [facility] 01-23-2025 07:16-0400 SaO2% (BldA) [Mass fraction] 100 % Dr. Mayda Garcia MD Work Phone: [facility] 01-23-2025 07:16-0400 Systolic blood pressure 125 mm[Hg] Dr. Mayda Garcia MD Work Phone: [facility] 01-19-2025 14:33-0400 Body mass index (BMI) [Ratio] 30.6 kg/m2 Dr. Mayda Garcia MD Work Phone: [facility] 01-19-2025 14:33-0400 Body temperature 97.8 [degF] Dr. Mayda Garcia MD Work Phone: [facility] 01-19-2025 14:33-0400 Body weight 75.[address] Mayda Garcia MD Work Phone: [facility] 01-19-2025 14:33-0400 Diastolic blood pressure 82 mm[Hg] Dr. Mayda Garcia MD Work Phone: [facility] 01-19-2025 14:33-0400 Heart rate 84 /min Dr. Mayda Garcia MD Work Phone: [facility] 01-19-2025 14:33-0400 Respiratory rate 16 /min Dr. Mayda Garcia MD Work Phone: [facility] 01-19-2025 14:33-0400 SaO2% (BldA) [Mass fraction] 96 % Dr. Mayda Garcia MD Work Phone: [facility] 01-19-2025 14:33-0400 Systolic blood pressure 154 mm[Hg] Dr. Mayda Garcia MD Work Phone: [facility] 11-16-2024 11:04-0400 Body height 157.[address] Mayda Garcia MD Work Phone: [facility] 11-16-2024 11:04-0400 Body mass index (BMI) [Ratio] 30.8 kg/m2 Dr. Mayda Garcia MD Work Phone: [facility] 11-16-2024 11:04-0400 Body temperature 96.9 [degF] Dr. Mayda Garcia MD Work Phone: [facility] 11-16-2024 11:04-0400 Body weight 76.[address] Mayda Garcia MD Work Phone: [facility] 11-16-2024 11:04-0400 Diastolic blood pressure 68 mm[Hg] Dr. Mayda Garcia MD Work Phone: [facility] 11-16-2024 11:04-0400 Heart rate 97 /min Dr. Mayda Garcia MD Work Phone: [facility] 11-16-2024 11:04-0400 Respiratory rate 16 /min Dr. Mayda Garcia MD Work Phone: [facility] 11-16-2024 11:04-0400 SaO2% (BldA) [Mass fraction] 99 % Dr. Mayda Garcia MD Work Phone: [facility] 11-16-2024 11:04-0400 Systolic blood pressure 120 mm[Hg] Dr. Mayda Garcia MD Work Phone: [facility] 11-14-2024 14:25-0400 Body temperature 97 [degF] Dr. Mayda Garcia MD Work Phone: [facility] 11-14-2024 14:25-0400 Diastolic blood pressure 63 mm[Hg] Dr. Mayda Garcia MD Work Phone: [facility] 11-14-2024 14:25-0400 Heart rate 76 /min Dr. Mayda Garcia MD Work Phone: [facility] 11-14-2024 14:25-0400 Respiratory rate 12 /min Dr. Mayda Garcia MD Work Phone: [facility] 11-14-2024 14:25-0400 SaO2% (BldA) [Mass fraction] 100 % Dr. Mayda Garcia MD Work Phone: [facility] 11-14-2024 14:25-0400 Systolic blood pressure 127 mm[Hg] Dr. Mayda Garcia MD Work Phone: [facility] 11-13-2024 21:42-0400 Body height 157.[address] Mayda Garcia MD Work Phone: [facility] 11-13-2024 21:42-0400 Body mass index (BMI) [Ratio] 31.1 kg/m2 Dr. Mayda Garcia MD Work Phone: [facility] 11-13-2024 21:42-0400 Body weight 77.[address] Mayda Garcia MD Work Phone: [facility] 11-13-2024 21:00-0400 Diastolic blood pressure 82 mm[Hg] Dr. Mayda Garcia MD Work Phone: [facility] 11-13-2024 21:00-0400 Heart rate 89 /min Dr. Mayda Garcia MD Work Phone: [facility] 11-13-2024 21:00-0400 Respiratory rate 28 /min Dr. Mayda Garcia MD Work Phone: [facility] 11-13-2024 21:00-0400 SaO2% (BldA) [Mass fraction] 99 % Dr. Mayda Garcia MD Work Phone: [facility] 11-13-2024 21:00-0400 Systolic blood pressure 139 mm[Hg] Dr. Mayda Garcia MD Work Phone: [facility] 11-13-2024 20:47-0400 Body temperature 98.2 [degF] Dr. Mayda Garcia MD Work Phone: [facility] 11-13-2024 16:23-0400 Body height 157.[address] Mayda Garcia MD Work Phone: [facility] 11-07-2024 11:15-0400 Body height 157.[address] Mayda Garcia MD Work Phone: [facility] 11-07-2024 11:15-0400 Body mass index (BMI) [Ratio] 31.4 kg/m2 Dr. Mayda Garcia MD Work Phone: [facility] 11-07-2024 11:15-0400 Body temperature 98.2 [degF] Dr. Mayda Garcia MD Work Phone: [facility] 11-07-2024 11:15-0400 Body weight 78.[address] Mayda Garcia MD Work Phone: [facility] 11-07-2024 11:15-0400 Diastolic blood pressure 77 mm[Hg] Dr. Mayda Garcia MD Work Phone: [facility] 11-07-2024 11:15-0400 Heart rate 94 /min Dr. Mayda Garcia MD Work Phone: [facility] 11-07-2024 11:15-0400 Respiratory rate 17 /min Dr. Mayda Garcia MD Work Phone: [facility] 11-07-2024 11:15-0400 SaO2% (BldA) [Mass fraction] 99 % Dr. Mayda Garcia MD Work Phone: [facility] 11-07-2024 11:15-0400 Systolic blood pressure 119 mm[Hg] Dr. Mayda Garcia MD Work Phone: [facility] 10-03-2024 11:23-0400 Body temperature 98.6 [degF] Dr. Mayda Garcia MD Work Phone: [facility] 10-03-2024 11:23-0400 Body weight 78.[address] Mayda Garcia MD Work Phone: [facility] 10-03-2024 11:23-0400 Diastolic blood pressure 79 mm[Hg] Dr. Mayda Garcia MD Work Phone: [facility] 10-03-2024 11:23-0400 Heart rate 88 /min Dr. Mayda Garcia MD Work Phone: [facility] 10-03-2024 11:23-0400 Respiratory rate 17 /min Dr. Mayda Garcia MD Work Phone: [facility] 10-03-2024 11:23-0400 SaO2% (BldA) [Mass fraction] 98 % Dr. Mayda Garcia MD Work Phone: [facility] 10-03-2024 11:23-0400 Systolic blood pressure 139 mm[Hg] Dr. Mayda Garcia MD Work Phone: [facility] 09-28-2024 08:21-0400 Body mass index (BMI) [Ratio] 30.9 kg/m2 Dr. Mayda Garcia MD Work Phone: [facility] 09-28-2024 08:21-0400 Body temperature 97.4 [degF] Dr. Mayda Garcia MD Work Phone: [facility] 09-28-2024 08:21-0400 Body weight 76.[address] Mayda Garcia MD Work Phone: [facility] 09-28-2024 08:21-0400 Diastolic blood pressure 77 mm[Hg] Dr. Mayda Garcia MD Work Phone: [facility] 09-28-2024 08:21-0400 Heart rate 78 /min Dr. Mayda Garcia MD Work Phone: [facility] 09-28-2024 08:21-0400 Respiratory rate 18 /min Dr. Mayda Garcia MD Work Phone: [facility] 09-28-2024 08:21-0400 SaO2% (BldA) [Mass fraction] 99 % Dr. Mayda Garcia MD Work Phone: [facility] 09-28-2024 08:21-0400 Systolic blood pressure 148 mm[Hg] Dr. Mayda Garcia MD Work Phone: [facility] 09-21-2024 11:14-0400 Body height 157.[address] Mayda Garcia MD Work Phone: [facility] 09-21-2024 11:14-0400 Body mass index (BMI) [Ratio] 31.1 kg/m2 Dr. Mayda Garcia MD Work Phone: [facility] 09-21-2024 11:14-0400 Body temperature 96 [degF] Dr. Mayda Garcia MD Work Phone: [facility] 09-21-2024 11:14-0400 Body weight 77.[address] Mayda Garcia MD Work Phone: [facility] 09-21-2024 11:14-0400 Diastolic blood pressure 76 mm[Hg] Dr. Mayda Garcia MD Work Phone: [facility] 09-21-2024 11:14-0400 Heart rate 100 /min Dr. Mayda Garcia MD Work Phone: [facility] 09-21-2024 11:14-0400 Respiratory rate 16 /min Dr. Mayda Garcia MD Work Phone: [facility] 09-21-2024 11:14-0400 SaO2% (BldA) [Mass fraction] 97 % Dr. Mayda Garcia MD Work Phone: [facility] 09-21-2024 11:14-0400 Systolic blood pressure 126 mm[Hg] Dr. Mayda Garcia MD Work Phone: [facility] 09-19-2024 07:29-0400 Body mass index (BMI) [Ratio] 0.1 kg/m2 Dr. Mayda Garcia MD Work Phone: [facility] 09-19-2024 07:29-0400 Body weight 0.[address] Mayda Garcia MD Work Phone: [facility] 09-19-2024 07:29-0400 Diastolic blood pressure 82 mm[Hg] Dr. Mayda Garcia MD Work Phone: [facility] 09-19-2024 07:29-0400 Heart rate 91 /min Dr. Mayda Garcia MD Work Phone: [facility] 09-19-2024 07:29-0400 Respiratory rate 18 /min Dr. Mayda Gacria MD Work Phone: [facility] 09-19-2024 07:29-0400 SaO2% (BldA) [Mass fraction] 95 % Dr. Mayda Garcia MD Work Phone: [facility] 09-19-2024 07:29-0400 Systolic blood pressure 125 mm[Hg] Dr. Mayda Garcia MD Work Phone: [facility] 09-16-2024 19:40-0400 Body temperature 98.2 [degF] Dr. Mayda Garcia MD Work Phone: [facility] 09-16-2024 19:40-0400 Diastolic blood pressure 83 mm[Hg] Dr. Mayda Garcia MD Work Phone: [facility] 09-16-2024 19:40-0400 Heart rate 78 /min Dr. Mayda Garcia MD Work Phone: [facility] 09-16-2024 19:40-0400 Respiratory rate 24 /min Dr. Mayda Garcia MD Work Phone: [facility] 09-16-2024 19:40-0400 SaO2% (BldA) [Mass fraction] 99 % Dr. Mayda Garcia MD Work Phone: [facility] 09-16-2024 19:40-0400 Systolic blood pressure 137 mm[Hg] Dr. Mayda Garcia MD Work Phone: [facility] 09-16-2024 15:08-0400 Body height 157.[address] Mayda Garcia MD Work Phone: [facility] 08-10-2024 11:01-0400 Body mass index (BMI) [Ratio] 30.3 kg/m2 Dr. Mayda Garcia MD Work Phone: [facility] 08-10-2024 11:01-0400 Body temperature 97 [degF] Dr. Mayda Garcia MD Work Phone: [facility] 08-10-2024 11:01-0400 Body weight 75.[address] Mayda Garcia MD Work Phone: [facility] 08-10-2024 11:01-0400 Diastolic blood pressure 60 mm[Hg] Dr. Mayda Garcia MD Work Phone: [facility] 08-10-2024 11:01-0400 Heart rate 93 /min Dr. Mayda Garcia MD Work Phone: [facility] 08-10-2024 11:01-0400 Respiratory rate 16 /min Dr. Mayda Garcia MD Work Phone: [facility] 08-10-2024 11:01-0400 SaO2% (BldA) [Mass fraction] 97 % Dr. Mayda Garcia MD Work Phone: [facility] 08-10-2024 11:01-0400 Systolic blood pressure 108 mm[Hg] Dr. Mayda Garcia MD Work Phone: [facility] 07-15-2024 16:16-0400 Body temperature 97.6 [degF] Dr. Mayda Garcia MD Work Phone: [facility] 07-15-2024 16:16-0400 Diastolic blood pressure 79 mm[Hg] Dr. Mayda Garcia MD Work Phone: [facility] 07-15-2024 16:16-0400 Heart rate 98 /min Dr. Mayda Garcia MD Work Phone: [facility] 07-15-2024 16:16-0400 Respiratory rate 18 /min Dr. Mayda Garcia MD Work [facility] [facility] 07-15-2024 16:16-0400 SaO2% (BldA) [Mass fraction] 99 % Dr. Mayda Garcia MD Work Phone: [facility] 07-15-2024 16:16-0400 Systolic blood pressure 161 mm[Hg] Dr. Mayda Garcia MD Work Phone: [facility] 07-15-2024 12:12-0400 Body height 157.[address] Mayda Garcia MD Work Phone: [facility] 07-15-2024 12:12-0400 Body mass index (BMI) [Ratio] 30.6 kg/m2 Dr. Mayda Garcia MD Work Phone: [facility] 07-15-2024 12:12-0400 Body weight 75.[address] Mayda Garcia MD Work Phone: [facility] 07-14-2024 20:20-0400 Body temperature 97.9 [degF] Dr. Mayda Garcia MD Work Phone: [facility] 07-14-2024 20:20-0400 Diastolic blood pressure 80 mm[Hg] Dr. Mayda Garcia MD Work Phone: [facility] 07-14-2024 20:20-0400 Heart rate 85 /min Dr. Mayda Garcia MD Work Phone: [facility] 07-14-2024 20:20-0400 Respiratory rate 17 /min Dr. Mayda Garcia MD Work Phone: [facility] 07-14-2024 20:20-0400 SaO2% (BldA) [Mass fraction] 98 % Dr. Mayda Garcia MD Work Phone: [facility] 07-14-2024 20:20-0400 Systolic blood pressure 107 mm[Hg] Dr. Mayda Garcia MD Work Phone: [facility] 07-14-2024 16:18-0400 Body height 157.[address] Mayda Garcia MD Work Phone: [facility] 07-14-2024 16:18-0400 Body mass index (BMI) [Ratio] 30.7 kg/m2 Dr. Mayda Garcia MD Work Phone: [facility] 07-14-2024 16:18-0400 Body weight 76.[address] Mayda Garcia MD Work Phone: [facility] 07-05-2024 10:56-0500 Body mass index (BMI) [Ratio] 30.7 kg/m2 Dr. Mayda Garcia MD Work Phone: [facility] 07-05-2024 10:56-0500 Body temperature 98.6 [degF] Dr. Mayda Garcia MD Work Phone: [facility] 07-05-2024 10:56-0500 Body weight 76.[address] Mayda Garcia MD Work Phone: [facility] 07-05-2024 10:56-0500 Diastolic blood pressure 70 mm[Hg] Dr. Mayda Garcia MD Work Phone: [facility] 07-05-2024 10:56-0500 Heart rate 104 /min Dr. Mayda Garcia MD Work Phone: [facility] 07-05-2024 10:56-0500 Respiratory rate 17 /min Dr. Mayda Garcia MD Work Phone: [facility] 07-05-2024 10:56-0500 SaO2% (BldA) [Mass fraction] 98 % Dr. Mayda Garcia MD Work Phone: [facility] 07-05-2024 10:56-0500 Systolic blood pressure 130 mm[Hg] Dr. Mayda Garcia MD Work Phone: [facility] 05-20-2024 09:36-0500 Body mass index (BMI) [Ratio] 30.9 kg/m2 Dr. Mayda Garcia MD Work Phone: [facility] 05-20-2024 09:36-0500 Body temperature 97.6 [degF] Dr. Mayda Garcia MD Work Phone: [facility] 05-20-2024 09:36-0500 Body weight 76.[address] Mayda Garcia MD Work Phone: [facility] 05-20-2024 09:36-0500 Diastolic blood pressure 78 mm[Hg] Dr. Mayda Garcia MD Work Phone: [facility] 05-20-2024 09:36-0500 Heart rate 98 /min Dr. Mayda Garcia MD Work Phone: [facility] 05-20-2024 09:36-0500 Respiratory rate 16 /min Dr. Mayda Garcia MD Work Phone: [facility] 05-20-2024 09:36-0500 SaO2% (BldA) [Mass fraction] 99 % Dr. Mayda Garcia MD Work Phone: [facility] 05-20-2024 09:36-0500 Systolic blood pressure 142 mm[Hg] Dr. Mayda Garcia MD Work Phone: [facility] 05-16-2024 09:40-0500 Body mass index (BMI) [Ratio] 31.6 kg/m2 Dr. Mayda Garcia MD Work Phone: [facility] 05-16-2024 09:40-0500 Body temperature 98.4 [degF] Dr. Mayda Garcia MD Work Phone: [facility] 05-16-2024 09:40-0500 Body weight 78.[address] Mayda Garcia MD Work Phone: [facility] 05-16-2024 09:40-0500 Diastolic blood pressure 70 mm[Hg] Dr. Mayda Garcia MD Work Phone: [facility] 05-16-2024 09:40-0500 Heart rate 89 /min Dr. Mayda Garcia MD Work Phone: [facility] 05-16-2024 09:40-0500 Respiratory rate 16 /min Dr. Mayda Garcia MD Work Phone: [facility] 05-16-2024 09:40-0500 SaO2% (BldA) [Mass fraction] 99 % Dr. Mayda Garcia MD Work Phone: [facility] 05-16-2024 09:40-0500 Systolic blood pressure 116 mm[Hg] Dr. Mayda Garcia MD Work Phone: [facility] 04-21-2024 10:56-0500 Body mass index (BMI) [Ratio] 30.9 kg/m2 Dr. Mayda Garica MD Work Phone: [facility] 04-21-2024 10:56-0500 Body temperature 98.4 [degF] Dr. Mayda Garcia MD Work Phone: [facility] 04-21-2024 10:56-0500 Body weight 76.[address] Mayda Garcia MD Work Phone: [facility] 04-21-2024 10:56-0500 Diastolic blood pressure 72 mm[Hg] Dr. Mayda Garcia MD Work Phone: [facility] 04-21-2024 10:56-0500 Heart rate 111 /min Dr. Mayda Garcia MD Work Phone: [facility] 04-21-2024 10:56-0500 Respiratory rate 17 /min Dr. Mayda Garcia MD Work Phone: [facility] 04-21-2024 10:56-0500 SaO2% (BldA) [Mass fraction] 97 % Dr. Mayda Garcia MD Work Phone: [facility] 04-21-2024 10:56-0500 Systolic blood pressure 130 mm[Hg] Dr. Mayda Garcia MD Work Phone: [facility] 04-20-2024 12:38-0500 Body weight 76.[address] Mayda Garcia MD Work Phone: [facility] 04-20-2024 12:38-0500 Heart rate 106 /min Dr. Mayda Garcia MD Work Phone: [facility] 04-20-2024 12:38-0500 SaO2% (BldA) [Mass fraction] 97 % Dr. Mayda Garcia MD Work Phone: [facility] 04-19-2024 10:25-0500 Body mass index (BMI) [Ratio] 30.9 kg/m2 Dr. Mayda Garcia MD Work Phone: [facility] 04-19-2024 10:25-0500 Body weight 76.[address] Mayda Garcia MD Work Phone: [facility] 04-19-2024 10:25-0500 Diastolic blood pressure 62 mm[Hg] Dr. Mayda Garcia MD Work Phone: [facility] 04-19-2024 10:25-0500 Heart rate 97 /min Dr. Mayda Garcia MD Work Phone: [facility] 04-19-2024 10:25-0500 Respiratory rate 16 /min Dr. Mayda Garcia MD Work Phone: [facility] 04-19-2024 10:25-0500 Systolic blood pressure 115 mm[Hg] Dr. Mayda Garcia MD Work Phone: [facility] 08-03-2023 00:11-0400 Body weight 75.[address] Mayda Garcia Work Phone: [facility] 07-29-2023 08:29-0400 Body height 157.[address] Mayda Garcia Work Phone: [facility] 07-29-2023 08:29-0400 Body weight 75.[address] Mayda Garcia Work Phone: [facility] 07-23-2023 10:50-0400 Body height 157.[address] Mayda Garcia Work Phone: [facility] 07-23-2023 10:50-0400 Body mass index (BMI) [Ratio] 30.2 kg/m2 Dr. Mayda Garcia Work Phone: [facility] 07-23-2023 10:50-0400 Body temperature 97.8 [degF] Dr. Mayda Garcia Work Phone: [facility] 07-23-2023 10:50-0400 Body weight 74.[address] Mayda Garcia Work Phone: [facility] 07-23-2023 10:50-0400 Diastolic blood pressure 76 mm[Hg] Dr. Mayda Garcia Work Phone: [facility] 07-23-2023 10:50-0400 Heart rate 96 /min Dr. Mayda Garcia Work Phone: [facility] 07-23-2023 10:50-0400 Respiratory rate 17 /min Dr. Mayda Garcia Work Phone: [facility] 07-23-2023 10:50-0400 SaO2% (BldA) [Mass fraction] 99 % Dr. Mayda Garcia Work Phone: [facility] 07-23-2023 10:50-0400 Systolic blood pressure 118 mm[Hg] Dr. Mayda Garcia Work Phone: [facility] 07-20-2023 13:17-0400 Body mass index (BMI) [Ratio] 30.9 kg/m2 Dr. Mayda Garcia Work Phone: [facility] 07-20-2023 13:17-0400 Body temperature 97.8 [degF] Dr. Mayda Garcia Work Phone: [facility] 07-20-2023 13:17-0400 Body weight 76.[address] Mayda Garcia Work Phone: [facility] 07-20-2023 13:17-0400 Diastolic blood pressure 68 mm[Hg] Dr. Mayda Garcia Work Phone: [facility] 07-20-2023 13:17-0400 Heart rate 88 /min Dr. Mayda Garcia Work Phone: [facility] 07-20-2023 13:17-0400 Respiratory rate 17 /min Dr. Mayda Garcia Work Phone: [facility] 07-20-2023 13:17-0400 SaO2% (BldA) [Mass fraction] 99 % Dr. Mayda Garcia Work Phone: [facility] 07-20-2023 13:17-0400 Systolic blood pressure 118 mm[Hg] Dr. Mayda Garcia Work Phone: [facility] 07-03-2023 00:06-0500 Body weight 73.[address] Mayda Garcia Work Phone: [facility] 07-01-2023 09:13-0500 Body height 157.[address] Mayda Garcia Work Phone: [facility] 07-01-2023 09:13-0500 Body weight 73.[address] Mayda Garcia Work Phone: [facility] 06-17-2023 10:16-0500 Body height 157.[address] Mayda Garcia Work Phone: [facility] 06-17-2023 10:16-0500 Body mass index (BMI) [Ratio] 28.8 kg/m2 Dr. Mayda Garcia Work Phone: [facility] 06-17-2023 10:16-0500 Body temperature 97.4 [degF] Dr. Mayda Garcia Work Phone: [facility] 06-17-2023 10:16-0500 Body weight 71.[address] Mayda Garcia Work Phone: [facility] 06-17-2023 10:16-0500 Diastolic blood pressure 82 mm[Hg] Dr. Mayda Garcia Work Phone: [facility] 06-17-2023 10:16-0500 Heart rate 93 /min Dr. Mayda Garcia Work Phone: [facility] 06-17-2023 10:16-0500 Respiratory rate 16 /min Dr. Mayda Garcia Work Phone: [facility] 06-17-2023 10:16-0500 SaO2% (BldA) [Mass fraction] 98 % Dr. Mayda Garcia Work Phone: [facility] 06-17-2023 10:16-0500 Systolic blood pressure 126 mm[Hg] Dr. Mayda Garcia Work Phone: [facility] 06-10-2023 07:48-0500 Body mass index (BMI) [Ratio] 29.4 kg/m2 Dr. Mayda Garcia Work Phone: [facility] 06-10-2023 07:48-0500 Body temperature 98 [degF] Dr. Mayda Garcia Work Phone: [facility] 06-10-2023 07:48-0500 Body weight 73.[address] Mayda Garcia Work Phone: [facility] 06-10-2023 07:48-0500 Diastolic blood pressure 90 mm[Hg] Dr. Mayda Garcia Work Phone: [facility] 06-10-2023 07:48-0500 Heart rate 79 /min Dr. Mayda Garcia Work Phone: [facility] 06-10-2023 07:48-0500 Respiratory rate 20 /min Dr. Mayda Garcia Work Phone: [facility] 06-10-2023 07:48-0500 SaO2% (BldA) [Mass fraction] 99 % Dr. Mayda Garcia Work Phone: [facility] 06-10-2023 07:48-0500 Systolic blood pressure 171 mm[Hg] Dr. Mayda Garcia Work Phone: [facility] 06-01-2023 10:05-0500 Body mass index (BMI) [Ratio] 29.8 kg/m2 Dr. Mayda Garcia Work Phone: [facility] 06-01-2023 10:05-0500 Body weight 73.[address] Mayda Garcia Work Phone: [facility] 06-01-2023 10:05-0500 Diastolic blood pressure 64 mm[Hg] Dr. Mayda Garcia Work Phone: [facility] 06-01-2023 10:05-0500 Systolic blood pressure 104 mm[Hg] Dr. Mayda Garcia Work Phone: [facility] 06-01-2023 09:57-0500 Heart rate 101 /min Dr. Mayda Garcia Work Phone: [facility] 06-01-2023 09:57-0500 SaO2% (BldA) [Mass fraction] 97 % Dr. Mayda Garcia Work Phone: [facility] 06-01-2023 09:50-0500 Body height 157.[address] Mayda Garcia Work Phone: [facility] 05-18-2023 10:38-0500 Body temperature 98 [degF] Dr. Mayda Garcia Work Phone: [facility] 05-18-2023 10:38-0500 Diastolic blood pressure 70 mm[Hg] Dr. Mayda Garcia Work Phone: [facility] 05-18-2023 10:38-0500 Heart rate 70 /min Dr. Mayda Garcia Work Phone: [facility] 05-18-2023 10:38-0500 Respiratory rate 15 /min Dr. Mayda Garcia Work Phone: [facility] 05-18-2023 10:38-0500 SaO2% (BldA) [Mass fraction] 98 % Dr. Mayda Garcia Work Phone: [facility] 05-18-2023 10:38-0500 Systolic blood pressure 120 mm[Hg] Dr. Mayda Garcia Work Phone: [facility] 04-16-2023 11:43-0500 Body temperature 97.7 [degF] Dr. Mayda Garcia Work Phone: [facility] 04-16-2023 11:43-0500 Body weight 75.[address] Mayda Garcia Work Phone: [facility] 04-16-2023 11:43-0500 Diastolic blood pressure 70 mm[Hg] Dr. Mayda Garcia Work Phone: [facility] 04-16-2023 11:43-0500 Heart rate 99 /min Dr. Mayda Garcia Work Phone: [facility] 04-16-2023 11:43-0500 Respiratory rate 16 /min Dr. Mayda Garcia Work Phone: [facility] 04-16-2023 11:43-0500 SaO2% (BldA) [Mass fraction] 99 % Dr. Mayda Garcia Work Phone: [facility] 04-16-2023 11:43-0500 Systolic blood pressure 130 mm[Hg] Dr. Mayda Garcia Work Phone: [facility] 03-19-2023 09:50-0500 Body height 157.[address] Mayda Garcia Work Phone: [facility] 03-19-2023 09:50-0500 Body mass index (BMI) [Ratio] 29.8 kg/m2 Dr. Mayda Garcia Work Phone: [facility] 03-19-2023 09:50-0500 Body weight 73.[address] Mayda Garcia Work Phone: [facility] 03-19-2023 09:50-0500 Diastolic blood pressure 60 mm[Hg] Dr. Mayda Garcia Work Phone: [facility] 03-19-2023 09:50-0500 Heart rate 92 /min Dr. Mayda Garcia Work Phone: [facility] 03-19-2023 09:50-0500 Respiratory rate 16 /min Dr. Mayda Garcia Work Phone: [facility] 03-19-2023 09:50-0500 Systolic blood pressure 98 mm[Hg] Dr. Mayda Garcia Work Phone: [facility] 03-16-2023 14:11-0500 Body mass index (BMI) [Ratio] 30.4 kg/m2 Dr. Mayda Garcia Work Phone: [facility] 03-16-2023 14:11-0500 Body temperature 97.1 [degF] Dr. Mayda Garcia Work Phone: [facility] 03-16-2023 14:11-0500 Body weight 75.[address] Mayda Garcia Work Phone: [facility] 03-16-2023 14:11-0500 Diastolic blood pressure 62 mm[Hg] Dr. Mayda Garcia Work Phone: [facility] 03-16-2023 14:11-0500 Heart rate 102 /min Dr. Mayda Garcia Work Phone: [facility] 03-16-2023 14:11-0500 Respiratory rate 15 /min Dr. Mayda Garcia Work Phone: [facility] 03-16-2023 14:11-0500 SaO2% (BldA) [Mass fraction] 97 % Dr. Mayda Garcia Work Phone: [facility] 03-16-2023 14:11-0500 Systolic blood pressure 118 mm[Hg] Dr. Mayda Garcia Work Phone: [facility] 03-16-2023 13:21-0500 Body mass index (BMI) [Ratio] 30.5 kg/m2 Dr. Mayda Garcia Work Phone: [facility] 03-16-2023 13:21-0500 Body temperature 98.2 [degF] Dr. Mayda Garcia Work Phone: [facility] 03-16-2023 13:21-0500 Body weight 75.[address] Mayda Garcia Work Phone: [facility] 03-16-2023 13:21-0500 Diastolic blood pressure 63 mm[Hg] Dr. Mayda Garcia Work Phone: [facility] 03-16-2023 13:21-0500 Heart rate 82 /min Dr. Mayda Garcia Work Phone: [facility] 03-16-2023 13:21-0500 Respiratory rate 14 /min Dr. Mayda Garcia Work Phone: [facility] 03-16-2023 13:21-0500 SaO2% (BldA) [Mass fraction] 99 % Dr. Mayda Garcia Work Phone: [facility] 03-16-2023 13:21-0500 Systolic blood pressure 120 mm[Hg] Dr. Mayda Garcia Work Phone: [facility] 02-18-2023 10:07-0400 Body height 157.[address] Mayda Garcia Work Phone: [facility] 02-18-2023 10:07-0400 Body mass index (BMI) [Ratio] 30.5 kg/m2 Dr. Mayda Garcia Work Phone: [facility] 02-18-2023 10:07-0400 Body weight 75.[address] Mayda Garcia Work Phone: [facility] 02-18-2023 10:07-0400 Diastolic blood pressure 76 mm[Hg] Dr. Mayda Garcia Work Phone: [facility] 02-18-2023 10:07-0400 Heart rate 103 /min Dr. Mayda Garcia Work Phone: [facility] 02-18-2023 10:07-0400 Respiratory rate 18 /min Dr. Mayda Garcia Work Phone: [facility] 02-18-2023 10:07-0400 Systolic blood pressure 114 mm[Hg] Dr. Mayda Garcia Work Phone: [facility] 02-11-2023 11:01-0400 Body mass index (BMI) [Ratio] 29.5 kg/m2 Dr. Mayda Garcia Work Phone: [facility] 02-11-2023 11:01-0400 Body temperature 98.4 [degF] Dr. Mayda Garcia Work Phone: [facility] 02-11-2023 11:01-0400 Body weight 73.[address] Mayda Garcia Work Phone: [facility] 02-11-2023 11:01-0400 Diastolic blood pressure 70 mm[Hg] Dr. Mayda Garcia Work Phone: [facility] 02-11-2023 11:01-0400 Heart rate 90 /min Dr. Mayda Garcia Work Phone: [facility] 02-11-2023 11:01-0400 Respiratory rate 17 /min Dr. Mayda Garcia Work Phone: [facility] 02-11-2023 11:01-0400 SaO2% (BldA) [Mass fraction] 96 % Dr. Mayda Garcia Work Phone: [facility] 02-11-2023 11:01-0400 Systolic blood pressure 110 mm[Hg] Dr. Mayda Garcia Work Phone: [facility] 02-04-2023 10:53-0400 Body mass index (BMI) [Ratio] 30.5 kg/m2 Dr. Mayda Garcia Work Phone: [facility] 02-04-2023 10:53-0400 Body temperature 97.6 [degF] Dr. Mayda Garcia Work Phone: [facility] 02-04-2023 10:53-0400 Body weight 75.[address] Mayda Garcia Work Phone: [facility] 02-04-2023 10:53-0400 Diastolic blood pressure 80 mm[Hg] Dr. Mayda Garcia Work Phone: [facility] 02-04-2023 10:53-0400 Heart rate 91 /min Dr. Mayda Garcia Work Phone: [facility] 02-04-2023 10:53-0400 Respiratory rate 16 /min Dr. Mayda Garcia Work Phone: [facility] 02-04-2023 10:53-0400 SaO2% (BldA) [Mass fraction] 98 % Dr. Mayda Garcia Work Phone: [facility] 02-04-2023 10:53-0400 Systolic blood pressure 124 mm[Hg] Dr. Mayda Garcia Work Phone: [facility] 01-26-2023 11:37-0400 Body temperature 98.3 [degF] Dr. Mayda Garcia Work Phone: [facility] 01-26-2023 11:37-0400 Diastolic blood pressure 67 mm[Hg] Dr. Mayda Garcia Work Phone: [facility] 01-26-2023 11:37-0400 Heart rate 86 /min Dr. Mayda Garcia Work Phone: [facility] 01-26-2023 11:37-0400 Respiratory rate 18 /min Dr. Mayda Garcia Work Phone: [facility] 01-26-2023 11:37-0400 SaO2% (BldA) [Mass fraction] 98 % Dr. Mayda Garcia Work Phone: [facility] 01-26-2023 11:37-0400 Systolic blood pressure 107 mm[Hg] Dr. Mayda Garcia Work Phone: [facility] 01-24-2023 06:00-0400 Body mass index (BMI) [Ratio] 31.3 kg/m2 Dr. Mayda Garcia Work Phone: [facility] 01-24-2023 06:00-0400 Body weight 77.[address] Mayda Garcia Work Phone: [facility] 01-22-2023 06:03-0400 Inhaled oxygen flow rate 2 L/min Dr. Mayda Garcia Work Phone: [facility] 01-21-2023 16:06-0400 Body height 157.[address] Mayda Garcia Work Phone: [facility] 01-11-2023 07:00-0400 Body temperature 98.29 [degF] Azam Rose MD Work Phone: [facility] 01-11-2023 07:00-0400 Diastolic blood pressure 62 mm[Hg] Azam Rose MD Work Phone: [facility] 01-11-2023 07:00-0400 Heart rate 81 /min Azam Rose MD Work Phone: [facility] 01-11-2023 07:00-0400 Respiratory rate 16 /min Azam Rose MD Work Phone: [facility] 01-11-2023 07:00-0400 SaO2% (BldA) [Mass fraction] 96 % Azam Rose MD Work Phone: [facility] 01-11-2023 07:00-0400 Systolic blood pressure 112 mm[Hg] Azam Rose MD Work Phone: [facility] 01-11-2023 04:43-0400 Body mass index (BMI) [Ratio] 31.21 kg/m2 Azam Rose MD Work Phone: [facility] 01-11-2023 04:43-0400 Body weight 77.4 kg Azam Rose MD Work Phone: [facility] 01-02-2023 08:47-0400 Body height 157.5 cm Azam Rose MD Work Phone: [facility] 01-01-2023 10:48-0400 SaO2% (BldA) [Mass fraction] 99.2 % Azam Rose MD Work Phone: [facility] 12-23-2022 10:18-0400 Body height 157.5 cm Azam Rose MD Work Phone: [facility] 12-23-2022 10:18-0400 Body mass index (BMI) [Ratio] 31.17 kg/m2 Azamjerica Rose MD Work Phone: [facility] 12-23-2022 10:18-0400 Body weight 77.29 kg Azamjerica Rose MD Work Phone: [facility] 12-23-2022 10:18-0400 Diastolic blood pressure 78 mm[Hg] Azamjerica Rose MD Work Phone: [facility] 12-23-2022 10:18-0400 Heart rate 91 /min Azamjerica Rose MD Work Phone: [facility] 12-23-2022 10:18-0400 Systolic blood pressure 140 mm[Hg] Azam Rose MD Work Phone: [facility] 12-19-2022 14:00-0400 Body temperature 97.2 [degF] Dr. Mayda Garcia Work Phone: [facility] 12-19-2022 14:00-0400 Diastolic blood pressure 69 mm[Hg] Dr. Mayda Garcia Work Phone: [facility] 12-19-2022 14:00-0400 Heart rate 92 /min Dr. Mayda Garcia Work Phone: [facility] 12-19-2022 14:00-0400 Respiratory rate 18 /min Dr. Mayda Garcia Work Phone: [facility] 12-19-2022 14:00-0400 SaO2% (BldA) [Mass fraction] 100 % Dr. Mayda Garcia Work Phone: [facility] 12-19-2022 14:00-0400 Systolic blood pressure 140 mm[Hg] Dr. Mayda Garcia Work Phone: [facility] 12-18-2022 10:26-0400 Body height 157.[address] Mayda Garcia Work Phone: [facility] 12-18-2022 10:26-0400 Body mass index (BMI) [Ratio] 31.4 kg/m2 Dr. Mayda Garcia Work Phone: [facility] 12-18-2022 10:26-0400 Body weight 77.[address] Mayda Garcia Work Phone: [facility] 12-18-2022 10:00-0400 Respiratory rate 18 /min Dr. Mayda Garcia Work Phone: [facility] 12-18-2022 09:15-0400 Body temperature 98.1 [degF] Dr. Mayda Garcia Work Phone: [facility] 12-18-2022 09:15-0400 Diastolic blood pressure 72 mm[Hg] Dr. Mayda Garcia Work Phone: [facility] 12-18-2022 09:15-0400 Heart rate 74 /min Dr. Mayda Garcia Work Phone: [facility] 12-18-2022 09:15-0400 SaO2% (BldA) [Mass fraction] 95 % Dr. Mayda Garcia Work Phone: [facility] 12-18-2022 09:15-0400 Systolic blood pressure 148 mm[Hg] Dr. Mayda Garcia Work Phone: [facility] 12-18-2022 05:23-0400 Body height 187.[address] Mayda Garica Work Phone: [facility] 12-18-2022 05:23-0400 Body mass index (BMI) [Ratio] 22.4 kg/m2 Dr. Mayda Garcia Work Phone: [facility] 12-18-2022 05:23-0400 Body weight 79.[address] Mayda Garcia Work Phone: [facility] 12-11-2022 14:43-0400 Body mass index (BMI) [Ratio] 30.9 kg/m2 Dr. Mayda Garcia Work Phone: [facility] 12-11-2022 14:43-0400 Body temperature 98.3 [degF] Dr. Mayda Garcia Work Phone: [facility] 12-11-2022 14:43-0400 Body weight 76.[address] Mayda Garcia Work Phone: [facility] 12-11-2022 14:43-0400 Diastolic blood pressure 76 mm[Hg] Dr. Mayda Garcia Work Phone: [facility] 12-11-2022 14:43-0400 Heart rate 97 /min Dr. Mayda Garcia Work Phone: [facility] 12-11-2022 14:43-0400 Respiratory rate 16 /min Dr. Mayda Garcia Work Phone: [facility] 12-11-2022 14:43-0400 SaO2% (BldA) [Mass fraction] 97 % Dr. Mayda Garcia Work Phone: [facility] 12-11-2022 14:43-0400 Systolic blood pressure 124 mm[Hg] Dr. Mayda Garcia Work Phone: [facility] 11-19-2022 14:56-0400 Body mass index (BMI) [Ratio] 31.7 kg/m2 Dr. Mayda Garcia Work Phone: [facility] 11-19-2022 14:56-0400 Body temperature 97.7 [degF] Dr. Mayda Garcia Work Phone: [facility] 11-19-2022 14:56-0400 Body weight 78.[address] Mayda Garcia Work Phone: [facility] 11-19-2022 14:56-0400 Diastolic blood pressure 78 mm[Hg] Dr. Mayda Garcia Work Phone: [facility] 11-19-2022 14:56-0400 Heart rate 90 /min Dr. Mayda Garcia Work Phone: [facility] 11-19-2022 14:56-0400 Respiratory rate 14 /min Dr. Mayda Garcia Work Phone: [facility] 11-19-2022 14:56-0400 SaO2% (BldA) [Mass fraction] 98 % Dr. Mayda Garcia Work Phone: [facility] 11-19-2022 14:56-0400 Systolic blood pressure 130 mm[Hg] Dr. Mayda Garcia Work Phone: [facility] 10-10-2022 11:04-0400 Body height [address] Mayda Garcia Work Phone: [facility] 10-10-2022 11:04-0400 Body mass index (BMI) [Ratio] 31.4 kg/m2 Dr. Mayda Garcia Work Phone: [facility] 10-10-2022 11:04-0400 Body weight 78.[address] Mayda Garcia Work Phone: [facility] 10-03-2022 10:42-0400 Body height 157.[address] Mayda Garcia Work Phone: [facility] 10-03-2022 10:42-0400 Body mass index (BMI) [Ratio] 31.7 kg/m2 Dr. Mayda Garcia Work Phone: [facility] 10-03-2022 10:42-0400 Body temperature 97.1 [degF] Dr. Mayda Garcia Work Phone: [facility] 10-03-2022 10:42-0400 Body weight 78.[address] Mayda Garcia Work Phone: [facility] 10-03-2022 10:42-0400 Diastolic blood pressure 84 mm[Hg] Dr. Mayda Garcia Work Phone: [facility] 10-03-2022 10:42-0400 Heart rate 112 /min Dr. Mayda Garcia Work Phone: [facility] 10-03-2022 10:42-0400 Respiratory rate 18 /min Dr. Mayda Garcia Work Phone: [facility] 10-03-2022 10:42-0400 SaO2% (BldA) [Mass fraction] 98 % Dr. Mayda Garcia Work Phone: [facility] 10-03-2022 10:42-0400 Systolic blood pressure 138 mm[Hg] Dr. Mayda Garcia Work Phone: [facility] 10-02-2022 11:41-0400 Body mass index (BMI) [Ratio] 31.5 kg/m2 Dr. Mayda Garcia Work Phone: [facility] 10-02-2022 11:41-0400 Body temperature 98 [degF] Dr. Mayda Garcia Work Phone: [facility] 10-02-2022 11:41-0400 Body weight 78.[address] Mayda Garcia Work Phone: [facility] 10-02-2022 11:41-0400 Diastolic blood pressure 60 mm[Hg] Dr. Mayda Garcia Work Phone: [facility] 10-02-2022 11:41-0400 Heart rate 91 /min Dr. Mayda Garcia Work Phone: [facility] 10-02-2022 11:41-0400 Respiratory rate 17 /min Dr. Mayda Garcia Work Phone: [facility] 10-02-2022 11:41-0400 SaO2% (BldA) [Mass fraction] 97 % Dr. Mayda Garcia Work Phone: [facility] 10-02-2022 11:41-0400 Systolic blood pressure 118 mm[Hg] Dr. Mayda Garcia Work Phone: [facility] 08-22-2022 15:19-0400 Body mass index (BMI) [Ratio] 32.1 kg/m2 Dr. Mayda Garcia Work Phone: [facility] 08-22-2022 15:19-0400 Body temperature 98 [degF] Dr. Mayda Garcia Work Phone: [facility] 08-22-2022 15:19-0400 Body weight 79.[address] Mayda Garcia Work Phone: [facility] 08-22-2022 15:19-0400 Diastolic blood pressure 72 mm[Hg] Dr. Mayda Garcia Work Phone: [facility] 08-22-2022 15:19-0400 Heart rate 89 /min Dr. Mayda Garcia Work Phone: [facility] 08-22-2022 15:19-0400 Respiratory rate 16 /min Dr. Mayda Garcia Work Phone: [facility] 08-22-2022 15:19-0400 SaO2% (BldA) [Mass fraction] 97 % Dr. Mayda Garcia Work Phone: [facility] 08-22-2022 15:19-0400 Systolic blood pressure 130 mm[Hg] Dr. Mayda Garcia Work Phone: [facility] 08-14-2022 01:11-0400 Diastolic blood pressure 81 mm[Hg] Dr. Mayda Garcia Work Phone: [facility] 08-14-2022 01:11-0400 Heart rate 87 /min Dr. Mayda Garcia Work Phone: [facility] 08-14-2022 01:11-0400 Respiratory rate 17 /min Dr. Mayda Garcia Work Phone: [facility] 08-14-2022 01:11-0400 SaO2% (BldA) [Mass fraction] 100 % Dr. Mayda Garcia Work Phone: [facility] 08-14-2022 01:11-0400 Systolic blood pressure 163 mm[Hg] Dr. Mayda Garcia Work Phone: [facility] 08-13-2022 21:57-0400 Body height 157.[address] Mayda Garcia Work Phone: [facility] 08-13-2022 21:57-0400 Body mass index (BMI) [Ratio] 35.2 kg/m2 Dr. Mayda Garcia Work Phone: [facility] 08-13-2022 21:57-0400 Body temperature 98.2 [degF] Dr. Mayda Garcia Work Phone: [facility] 08-13-2022 21:57-0400 Body weight 87.[address] Mayda Garcia Work Phone: [facility] 06-30-2022 10:56-0500 Body mass index (BMI) [Ratio] 32.1 kg/m2 Dr. Mayda Garcia Work Phone: [facility] 06-30-2022 10:56-0500 Body temperature 98.8 [degF] Dr. Mayda Garcia Work Phone: [facility] 06-30-2022 10:56-0500 Body weight 79.[address] Mayda Garcia Work Phone: [facility] 06-30-2022 10:56-0500 Diastolic blood pressure 80 mm[Hg] Dr. Mayda Garcia Work Phone: [facility] 06-30-2022 10:56-0500 Heart rate 87 /min Dr. Mayda Garcia Work Phone: [facility] 06-30-2022 10:56-0500 Respiratory rate 16 /min Dr. Mayda Garcia Work Phone: [facility] 06-30-2022 10:56-0500 SaO2% (BldA) [Mass fraction] 99 % Dr. Mayda Garcia Work Phone: [facility] 06-30-2022 10:56-0500 Systolic blood pressure 128 mm[Hg] Dr. Mayda Garcia Work Phone: [facility] 06-09-2022 13:30-0500 Body mass index (BMI) [Ratio] 35.6 kg/m2 Dr. Mayda Garcia Work Phone: [facility] 06-09-2022 13:30-0500 Body temperature 98.5 [degF] Dr. Mayda Garcia Work Phone: [facility] 06-09-2022 13:30-0500 Body weight 88.[address] Mayda Garcia Work Phone: [facility] 06-09-2022 13:30-0500 Diastolic blood pressure 74 mm[Hg] Dr. Mayda Garcia Work Phone: [facility] 06-09-2022 13:30-0500 Heart rate 102 /min Dr. Mayda Garcia Work Phone: [facility] 06-09-2022 13:30-0500 Respiratory rate 16 /min Dr. Mayda Garcia Work Phone: [facility] 06-09-2022 13:30-0500 SaO2% (BldA) [Mass fraction] 96 % Dr. Mayda Garcia Work Phone: [facility] 06-09-2022 13:30-0500 Systolic blood pressure 136 mm[Hg] Dr. Mayda Garcia Work Phone: [facility] 06-07-2022 17:41-0500 Body height 157.[address] Mayda Garcia Work Phone: [facility] 06-07-2022 17:41-0500 Body mass index (BMI) [Ratio] 35.6 kg/m2 Dr. Mayda Garcia Work Phone: [facility] 06-07-2022 17:41-0500 Body temperature 97.9 [degF] Dr. Mayda Garcia Work Phone: [facility] 06-07-2022 17:41-0500 Body weight 88.[address] Mayda Garcia Work Phone: [facility] 06-07-2022 17:41-0500 Diastolic blood pressure 85 mm[Hg] Dr. Mayda Garcia Work Phone: [facility] 06-07-2022 17:41-0500 Heart rate 90 /min Dr. Mayda Garcia Work Phone: [facility] 06-07-2022 17:41-0500 Respiratory rate 18 /min Dr. Mayda Garcia Work Phone: [facility] 06-07-2022 17:41-0500 SaO2% (BldA) [Mass fraction] 100 % Dr. Mayda Garcia Work Phone: [facility] 06-07-2022 17:41-0500 Systolic blood pressure 180 mm[Hg] Dr. Mayda Garcia Work Phone: [facility] 06-06-2022 14:05-0500 Respiratory rate 18 /min Dr. Mayda Garcia Work Phone: [facility] 06-06-2022 13:04-0500 Diastolic blood pressure 70 mm[Hg] Dr. Mayda Garcia Work Phone: [facility] 06-06-2022 13:04-0500 Heart rate 79 /min Dr. Mayda Garcia Work Phone: [facility] 06-06-2022 13:04-0500 Systolic blood pressure 133 mm[Hg] Dr. Mayda Garcia Work Phone: [facility] 06-06-2022 12:27-0500 SaO2% (BldA) [Mass fraction] 98 % Dr. Mayda Garcia Work Phone: [facility] 06-06-2022 09:11-0500 Body mass index (BMI) [Ratio] 33.7 kg/m2 Dr. Mayda Garcia Work Phone: [facility] 06-06-2022 09:11-0500 Body temperature 98.1 [degF] Dr. Mayda Garcia Work Phone: [facility] 06-06-2022 09:11-0500 Body weight 83.[address] Mayda Garcia Work Phone: [facility] 05-06-2022 13:32-0500 Body temperature 96.2 [degF] Dr. Mayda Garcia Work Phone: [facility] 05-06-2022 13:32-0500 Body weight 80.[address] Mayda Garcia Work Phone: [facility] 05-06-2022 13:32-0500 Diastolic blood pressure 66 mm[Hg] Dr. Mayda Garcia Work Phone: [facility] 05-06-2022 13:32-0500 Heart rate 89 /min Dr. Mayda Garcia Work Phone: [facility] 05-06-2022 13:32-0500 Respiratory rate 16 /min Dr. Mayda Garcia Work Phone: [facility] 05-06-2022 13:32-0500 SaO2% (BldA) [Mass fraction] 96 % Dr. Mayda Garcia Work Phone: [facility] 05-06-2022 13:32-0500 Systolic blood pressure 136 mm[Hg] Dr. Mayda Garcia Work Phone: [facility] 04-02-2022 11:18-0500 Body height 157.[address] Mayda Garcia Work Phone: [facility] 04-02-2022 11:18-0500 Body mass index (BMI) [Ratio] 32 kg/m2 Dr. Mayda Garcia Work Phone: [facility] 04-02-2022 11:18-0500 Body temperature 98.5 [degF] Dr. Mayda Garcia Work Phone: [facility] 04-02-2022 11:18-0500 Body weight 79.[address] Mayda Garcia Work Phone: [facility] 04-02-2022 11:18-0500 Diastolic blood pressure 64 mm[Hg] Dr. Mayda Garcia Work Phone: [facility] 04-02-2022 11:18-0500 Heart rate 100 /min Dr. Mayda Garcia Work Phone: [facility] 04-02-2022 11:18-0500 Respiratory rate 14 /min Dr. Mayda Garcia Work Phone: [facility] 04-02-2022 11:18-0500 SaO2% (BldA) [Mass fraction] 99 % Dr. Mayda Garcia Work Phone: [facility] 04-02-2022 11:18-0500 Systolic blood pressure 104 mm[Hg] Dr. Mayda Garcia Work Phone: [facility] 03-29-2022 10:32-0500 Body height 157.[address] Mayda Garcia Work Phone: [facility] Work Phone: 03-29-2022 10:32-0500 Body mass index (BMI) [Ratio] 32.8 kg/m2 Dr. Mayda Garcia Work Phone: [facility] 03-29-2022 10:32-0500 Body temperature 96 [degF] Dr. Mayda Garcia Work Phone: [facility] 03-29-2022 10:32-0500 Body weight 81.[address] Mayda Garcia Work Phone: [facility] 03-29-2022 10:32-0500 Diastolic blood pressure 93 mm[Hg] Dr. Mayda Garcia Work Phone: [facility] 03-29-2022 10:32-0500 Heart rate 88 /min Dr. Mayda Garcia Work Phone: [facility] 03-29-2022 10:32-0500 Respiratory rate 18 /min Dr. Mayda Garcia Work Phone: [facility] 03-29-2022 10:32-0500 SaO2% (BldA) [Mass fraction] 100 % Dr. Mayda Garcia Work Phone: [facility] 03-29-2022 10:32-0500 Systolic blood pressure 151 mm[Hg] Dr. Mayda Garcia Work Phone: [facility] 03-14-2022 20:13-0500 Diastolic blood pressure 85 mm[Hg] Dr. Mayda Garcia Work Phone: [facility] 03-14-2022 20:13-0500 Heart rate 93 /min Dr. Mayda Garcia Work Phone: [facility] 03-14-2022 20:13-0500 Respiratory rate 18 /min Dr. Mayda Garcia Work Phone: [facility] 03-14-2022 20:13-0500 SaO2% (BldA) [Mass fraction] 98 % Dr. Mayda Garcia Work Phone: [facility] 03-14-2022 20:13-0500 Systolic blood pressure 150 mm[Hg] Dr. Mayda Garcia Work Phone: [facility] 03-14-2022 16:12-0500 Body height 157.[address] Mayda Garcia Work Phone: [facility] Work Phone: 03-14-2022 16:12-0500 Body mass index (BMI) [Ratio] 33 kg/m2 Dr. Mayda Garcia Work Phone: [facility] 03-14-2022 16:12-0500 Body temperature 97.1 [degF] Dr. Mayda Garcia Work Phone: [facility] 03-14-2022 16:12-0500 Body weight 81.[address] Mayda Garcia Work Phone: [facility] 03-10-2022 10:13-0500 Body mass index (BMI) [Ratio] 33.3 kg/m2 Dr. Mayda Garcia Work Phone: [facility] 03-10-2022 10:13-0500 Body temperature 98.2 [degF] Dr. Mayda Garcia Work Phone: [facility] 03-10-2022 10:13-0500 Body weight 82.[address] Mayda Garcia Work Phone: [facility] 03-10-2022 10:13-0500 Diastolic blood pressure 76 mm[Hg] Dr. Mayda Garcia Work Phone: [facility] 03-10-2022 10:13-0500 Heart rate 94 /min Dr. Mayad Garcia Work Phone: [facility] 03-10-2022 10:13-0500 Respiratory rate 18 /min Dr. Mayda Garcia Work Phone: [facility] 03-10-2022 10:13-0500 SaO2% (BldA) [Mass fraction] 96 % Dr. Mayda Garcia Work Phone: [facility] 03-10-2022 10:13-0500 Systolic blood pressure 118 mm[Hg] Dr. Mayda Garcia Work Phone: [facility] 01-14-2022 12:21-0400 Body height 157.[address] Mayda Garcia Work Phone: [facility] Work Phone: 01-14-2022 12:21-0400 Body mass index (BMI) [Ratio] 31.6 kg/m2 Dr. Mayda Garcia Work Phone: [facility] Work Phone: 01-14-2022 12:21-0400 Body weight 78.[address] Mayda Garcia Work Phone: [facility] Work Phone: 01-14-2022 12:21-0400 Diastolic blood pressure 80 mm[Hg] Dr. Mayda Garcia Work Phone: [facility] Work Phone: 01-14-2022 12:21-0400 Heart rate 102 /min Dr. Mayda Garcia Work Phone: [facility] Work Phone: 01-14-2022 12:21-0400 Respiratory rate 16 /min Dr. Mayda Garcia Work Phone: [facility] Work Phone: 01-14-2022 12:21-0400 SaO2% (BldA) [Mass fraction] 98 % Dr. Mayda Garcai Work Phone: [facility] Work Phone: 01-14-2022 12:21-0400 Systolic blood pressure 130 mm[Hg] Dr. Mayda Garcia Work Phone: [facility] Work Phone: 01-10-2022 09:51-0400 Body mass index (BMI) [Ratio] 32.1 kg/m2 Dr. Mayda Garcia Work Phone: [facility] Work Phone: 01-10-2022 09:51-0400 Body temperature 97 [degF] Dr. Mayda Garcia Work Phone: [facility] Work Phone: 01-10-2022 09:51-0400 Body weight 79.[address] Mayda Garcia Work Phone: [facility] Work Phone: 01-10-2022 09:51-0400 Diastolic blood pressure 78 mm[Hg] Dr. Mayda Garcia Work Phone: [facility] Work Phone: 01-10-2022 09:51-0400 Heart rate 80 /min Dr. Mayda Garcia Work Phone: [facility] Work Phone: 01-10-2022 09:51-0400 Respiratory rate 16 /min Dr. Mayda Garcia Work Phone: [facility] Work Phone: 01-10-2022 09:51-0400 SaO2% (BldA) [Mass fraction] 98 % Dr. Mayda Garcia Work Phone: [facility] Work Phone: 01-10-2022 09:51-0400 Systolic blood pressure 100 mm[Hg] Dr. Mayda Garcia Work Phone: [facility] Work Phone: 01-03-2022 13:14-0400 Body temperature 97.3 [degF] Dr. Mayda Garcia Work Phone: [facility] Work Phone: 01-03-2022 13:14-0400 Diastolic blood pressure 77 mm[Hg] Dr. Mayda Garcia Work Phone: [facility] Work Phone: 01-03-2022 13:14-0400 Heart rate 77 /min Dr. Mayda Garcia Work Phone: [facility] Work Phone: 01-03-2022 13:14-0400 Respiratory rate 18 /min Dr. Mayda Garcia Work Phone: [facility] Work Phone: 01-03-2022 13:14-0400 SaO2% (BldA) [Mass fraction] 99 % Dr. Mayda Garcia Work Phone: [facility] Work Phone: 01-03-2022 13:14-0400 Systolic blood pressure 123 mm[Hg] Dr. Mayda Garcia Work Phone: [facility] Work Phone: 01-03-2022 06:00-0400 Body weight 81.[address] Mayda Garcia Work Phone: [facility] Work Phone: 01-02-2022 12:50-0400 Body height 157.[address] Mayda Garcia Work Phone: [facility] Work Phone: 01-02-2022 12:50-0400 Body mass index (BMI) [Ratio] 32.7 kg/m2 Dr. Mayda Garcia Work Phone: [facility] Work Phone: 12-23-2021 15:00-0400 Body mass index (BMI) [Ratio] 30.4 kg/m2 Dr. Mayda Garcia Work Phone: [facility] Work Phone: 12-23-2021 15:00-0400 Body temperature 98.7 [degF] Dr. Mayda Garcia Work Phone: [facility] Work Phone: 12-23-2021 15:00-0400 Body weight 80.[address] Mayda Garcia Work Phone: [facility] Work Phone: 12-23-2021 15:00-0400 Diastolic blood pressure 64 mm[Hg] Dr. Mayda Garcia Work Phone: [facility] Work Phone: 12-23-2021 15:00-0400 Heart rate 92 /min Dr. Mayda Garcia Work Phone: [facility] Work Phone: 12-23-2021 15:00-0400 Respiratory rate 18 /min Dr. Mayda Garcia Work Phone: [facility] Work Phone: 12-23-2021 15:00-0400 SaO2% (BldA) [Mass fraction] 97 % Dr. Mayda Garcia Work Phone: [facility] Work Phone: 12-23-2021 15:00-0400 Systolic blood pressure 140 mm[Hg] Dr. Mayda Garcia Work Phone: [facility] Work Phone: 12-17-2021 05:21-0400 Diastolic blood pressure 62 mm[Hg] Dr. Mayda Garcia Work Phone: [facility] Work Phone: 12-17-2021 05:21-0400 Heart rate 97 /min Dr. Mayda Garcia Work Phone: [facility] Work Phone: 12-17-2021 05:21-0400 Respiratory rate 18 /min Dr. Mayda Garcia Work Phone: [facility] Work Phone: 12-17-2021 05:21-0400 SaO2% (BldA) [Mass fraction] 98 % Dr. Mayda Garcia Work Phone: [facility] Work Phone: 12-17-2021 05:21-0400 Systolic blood pressure 154 mm[Hg] Dr. Mayda Garcia Work Phone: [facility] Work Phone: 12-17-2021 03:52-0400 Body height 162.[address] Mayda Garcia Work Phone: [facility] Work Phone: 12-17-2021 03:52-0400 Body mass index (BMI) [Ratio] 31 kg/m2 Dr. Mayda Garcia Work Phone: [facility] Work Phone: 12-17-2021 03:52-0400 Body temperature 97.8 [degF] Dr. Mayda Garcia Work Phone: [facility] Work Phone: 12-17-2021 03:52-0400 Body weight 82.[address] Mayda Garcia Work Phone: [facility] Work Phone: 11-28-2021 19:34-0400 Body height 187.[address] Mayda Garcia Work Phone: [facility] Work Phone: 11-28-2021 19:34-0400 Body mass index (BMI) [Ratio] 22.4 kg/m2 Dr. Mayda Garcia Work Phone: [facility] Work Phone: 11-28-2021 19:34-0400 Body temperature 98.6 [degF] Dr. Mayda Garcia Work Phone: [facility] Work Phone: 11-28-2021 19:34-0400 Body weight 79.[address] Mayda Garcia Work Phone: [facility] Work Phone: 11-28-2021 19:34-0400 Diastolic blood pressure 74 mm[Hg] Dr. Mayda Garcia Work Phone: [facility] Work Phone: 11-28-2021 19:34-0400 Heart rate 109 /min Dr. Mayda Garcia Work Phone: [facility] Work Phone: 11-28-2021 19:34-0400 Respiratory rate 18 /min Dr. Mayda Garcia Work Phone: [facility] Work Phone: 11-28-2021 19:34-0400 SaO2% (BldA) [Mass fraction] 99 % Dr. Mayda Garcia Work Phone: [facility] Work Phone: 11-28-2021 19:34-0400 Systolic blood pressure 167 mm[Hg] Dr. Mayda Garcia Work Phone: [facility] Work Phone: 11-06-2021 16:11-0400 Body mass index (BMI) [Ratio] 32.5 kg/m2 Dr. Mayda Garcia Work Phone: [facility] Work Phone: 11-06-2021 16:11-0400 Body temperature 98.4 [degF] Dr. Mayda Garcia Work Phone: [facility] Work Phone: 11-06-2021 16:11-0400 Body weight 80.[address] Mayda Garcia Work Phone: [facility] Work Phone: 11-06-2021 16:11-0400 Diastolic blood pressure 70 mm[Hg] Dr. Mayda Garcia Work Phone: [facility] Work Phone: 11-06-2021 16:11-0400 Heart rate 97 /min Dr. Mayda Garcia Work Phone: [facility] Work Phone: 11-06-2021 16:11-0400 Respiratory rate 18 /min Dr. Mayda Garcia Work Phone: [facility] Work Phone: 11-06-2021 16:11-0400 SaO2% (BldA) [Mass fraction] 97 % Dr. Mayda Garcia Work Phone: [facility] Work Phone: 11-06-2021 16:11-0400 Systolic blood pressure 130 mm[Hg] Dr. Mayda Garcia Work Phone: [facility] Work Phone: 11-05-2021 10:56-0400 Body mass index (BMI) [Ratio] 32.3 kg/m2 Dr. Mayda Garcia Work Phone: [facility] Work Phone: 11-05-2021 10:56-0400 Body temperature 97.4 [degF] Dr. Mayda Garcia Work Phone: [facility] Work Phone: 11-05-2021 10:56-0400 Body weight 80.[address] Mayda Garcia Work Phone: [facility] Work Phone: 11-05-2021 10:56-0400 Diastolic blood pressure 78 mm[Hg] Dr. Mayda Garcia Work Phone: [facility] Work Phone: 11-05-2021 10:56-0400 Heart rate 91 /min Dr. Mayda Garcia Work Phone: [facility] Work Phone: 11-05-2021 10:56-0400 Respiratory rate 16 /min Dr. Mayda Garcia Work Phone: [facility] Work Phone: 11-05-2021 10:56-0400 SaO2% (BldA) [Mass fraction] 98 % Dr. Mayda Garcia Work Phone: [facility] Work Phone: 11-05-2021 10:56-0400 Systolic blood pressure 144 mm[Hg] Dr. Mayda Garcia Work Phone: [facility] Work Phone: 10-25-2021 15:34-0400 Body temperature 98.9 [degF] Dr. Mayda Garcia Work Phone: [facility] Work Phone: 10-25-2021 15:34-0400 Diastolic blood pressure 64 mm[Hg] Dr. Mayda Garcia Work Phone: [facility] Work Phone: 10-25-2021 15:34-0400 Heart rate 78 /min Dr. Mayda Garcia Work Phone: [facility] Work Phone: 10-25-2021 15:34-0400 Respiratory rate 12 /min Dr. Mayda Garcia Work Phone: [facility] Work Phone: 10-25-2021 15:34-0400 SaO2% (BldA) [Mass fraction] 98 % Dr. Mayda Garcia Work Phone: [facility] Work Phone: 10-25-2021 15:34-0400 Systolic blood pressure 126 mm[Hg] Dr. Mayda Garcia Work Phone: [facility] Work Phone: 10-25-2021 13:34-0400 Body height 157.[address] Mayda Garcia Work Phone: [facility] Work Phone: 10-25-2021 13:34-0400 Body mass index (BMI) [Ratio] 32.9 kg/m2 Dr. Mayda Garcia Work Phone: [facility] Work Phone: 10-25-2021 13:34-0400 Body weight 81.[address] Mayda Garcia Work Phone: [facility] Work Phone: 10-17-2021 10:00-0400 Body mass index (BMI) [Ratio] 31.6 kg/m2 Dr. Mayda Garcia Work Phone: [facility] Work Phone: 10-17-2021 10:00-0400 Body weight 78.[address] Mayda Garcia Work Phone: [facility] Work Phone: 10-17-2021 10:00-0400 Diastolic blood pressure 60 mm[Hg] Dr. Mayda Garcia Work Phone: [facility] Work Phone: 10-17-2021 10:00-0400 Heart rate 79 /min Dr. Mayda Garcia Work Phone: [facility] Work Phone: 10-17-2021 10:00-0400 Respiratory rate 16 /min Dr. Mayda Garcia Work Phone: [facility] Work Phone: 10-17-2021 10:00-0400 SaO2% (BldA) [Mass fraction] 99 % Dr. Mayda Gacria Work Phone: [facility] Work Phone: 10-17-2021 10:00-0400 Systolic blood pressure 106 mm[Hg] Dr. Mayda Garcia Work Phone: [facility] Work Phone: 07-16-2021 13:57-0400 Body mass index (BMI) [Ratio] 32.4 kg/m2 Dr. Mayda Garcia Work Phone: [facility] Work Phone: 07-16-2021 13:57-0400 Diastolic blood pressure 84 mm[Hg] Dr. Mayda Garcia Work Phone: [facility] Work Phone: 07-16-2021 13:57-0400 Systolic blood pressure 150 mm[Hg] Dr. Mayda Garcia Work Phone: [facility] Work Phone: 07-16-2021 13:05-0400 Body weight 80.[address] Mayda Garcia Work Phone: [facility] Work Phone: 07-16-2021 13:05-0400 Heart rate 106 /min Dr. Mayda Garcia Work Phone: [facility] Work Phone: 07-16-2021 13:05-0400 SaO2% (BldA) [Mass fraction] 97 % Dr. Mayda Garcia Work Phone: [facility] Work Phone: Encounters Encounter Date Encounter Type Care Provider Facility Start: 03-09-2025 End: 03-09-2025 ambulatory [facility] Start: 02-27-2025 End: 02-27-2025 ambulatory [facility] Start: 01-30-2025 End: 01-30-2025 Dr. Pepe Ruiz MD -[facility] Work Phone: Start: 01-30-2025 End: 01-30-[address] Mayda Garcia MD Work Phone: [facility] Start: 01-26-2025 End: 01-26-2025 Shruthi GRIMES -[facility] Work Phone: Start: 01-26-2025 End: 01-26-[address] Mayda Garcia MD Work Phone: [facility] Start: 01-23-2025 End: 01-23-2025 Suzi GRIMES -[facility] Work Phone: Start: 01-23-2025 End: 01-23-[address] Mayda Garcia MD Work Phone: [facility] Start: 01-19-2025 End: 01-19-[address] Mayda Garcia MD Work Phone: -[facility] Start: 01-19-2025 End: 01-19-2025 Shruthi GRIMES -[facility] Work Phone: Start: 01-19-2025 End: 01-19-2025 [facility] Start: 11-25-2024 ambulatory [facility] Facili ty:[facility] Start: 11-16-2024 Encounter for genera l adult medical examination without abnormal findings Vanita Venegas NP [facility] Start: 11-16-2024 End: 11-16-2024 Dr. Mayda Garcia MD -[facility] Work Phone: Start: 11-16-2024 End: 11-16-[address] Mayda Garcia MD Work Phone: -[facility] Start: 11-14-2024 Dr. Maurilio Bradford MD -[facility] Inpatient Physicians Work Phone: Start: 11-14-2024 Dr. Aleksandr doty MD -[facility] Start: 11-13-[address] Noris Garcia MD Work Phone: -Progressive Care Unit Start: 11-13-2024 Dr. Edwin Kaplan DO [facility] Care Unit Work Phone: Start: 11-13-2024 End: 11-14-2024 ambulatory [facility] Facility:[facility] Start: 11-13-2024 End: 11-14-[address] Mayda Garcia MD Work Phone: -Progressive Care Unit Start: 11-13-2024 End: 11-14-2024 Dr. Edwin Kaplan DO [facility] Inpatient Physicians Work Phone: Start: 11-11-2024 End: 11-11-[address] Mayda Garcia MD Work Phone: -Sleep Lab Start: 11-11-2024 End: 11-11-2024 Vanita GRIMES -Sleep Lab Work Phone: Start: 11-11-2024 End: 11-11-[address] Mayda Garcia MD Work Phone: -Laboratory Start: 11-11-2024 End: 11-11-2024 Dr. Pepe Ruiz MD -Laboratory Work Phone: Start: 11-11-2024 End: 11-11-2024 ambulatory [facility] Facility:[facility] Start: 11-07-2024 End: 11-07-2024 Dr. Pepe Ruiz MD -[facility] Work Phone: Start: 11-07-2024 End: 11-07-[address] Mayda Garcia MD Work Phone: -[facility] Start: 10-20-2024 End: 10-20-[address] Mayda Garcia MD Work Phone: [facility] Work Phone: Start: 10-20-2024 End: 10-20-2024 Vanita GRIMES -Sleep Lab Work Phone: Start: 10-20-2024 End: 10-20-2024 ambulatory [facility] Facility:[facility] Start: 10-03-2024 End: 10-03-2024 Dr. Pepe Ruiz MD -[facility] Work Phone: Start: 10-03-2024 End: 10-03-[address] Mayda Garcia MD Work Phone: [facility] Work Phone: Start: 09-28-2024 End: 09-28-2024 Vanita Venegas NPSuellenC -[facility] Work Phone: Start: 09-28-2024 End: 09-28-[address] Mayda Garcia MD Work Phone: [facility] Work Phone: Start: 09-22-2024 End: 09-22-[address] Mayda Garcia MD Work Phone: [facility] Work Phone: Start: 09-22-2024 End: 09-22-2024 Dr. Mayda Garcia MD -Laboratory [facility] Start: 09-21-2024 End: 09-21-2024 Dr. Mayda Garcia MD -[facility] Work Phone: Start: 09-21-2024 End: 09-22-[address] Mayda Garcia MD Work Phone: [facility] Work Phone: Start: 09-19-2024 End: 09-19-2024 Mikhail LÓPEZ -[facility] Work Phone: Start: 09-19-2024 End: 09-19-[address] Mayda Garcia MD Work Phone: [facility] Work Phone: Start: 09-16-2024 End: 09-16-2024 Dr. Mayda Garcia MD Work Phone: -Emergency Department Work Phone: Start: 09-16-2024 End: 09-16-2024 Emergency department patient visit Dr. Mayda Garcia MD Work Phone: [facility] Work Phone: Start: 08-11-2024 ambulatory Mayda Apodacai ty:[facility] Start: 08-10-2024 End: 08-10-2024 Dr. Mayda Garcia MD -[facility] Work Phone: Start: 08-10-2024 End: 08-10-2024 ambulatory Norisabiolaconsuelo Garcia Facility[facility] Start: 07-22-2024 ambulatory Jiacosme Ibaneztoyarobson Facili ty:[facility] Start: 07-15-2024 End: 07-15-2024 Dr. Mayda Garcia MD Work Phone: -Emergency Department Work Phone: Start: 07-15-2024 End: 07-15-2024 Emergency department patient visit Dr. Mayda Garcia MD Work Phone: [facility] Work Phone: Start: 07-14-2024 End: 07-14-2024 Emergency department patient visit Dr. Mayda Garcia MD Work Phone: [facility] Work Phone: Start: 07-14-2024 End: 07-14-2024 Dr. Mayda Garcia MD Work Phone: -Emergency Department Work Phone: Start: 07-05-2024 End: 07-05-2024 Dr. Pepe Ruiz MD -[facility] Work Phone: Start: 07-05-2024 End: 07-05-2024 ambulatory Jiacosme Garcia Facility:[facility] Start: 06-22-2024 End: 06-22-2024 Dr. Yee Rowland MD -Laboratory, [place] Work Phone: Start: 06-22-2024 End: 06-22-2024 [facility] Start: 06-07-2024 End: 06-07-2024 Dr. Mayda Garcia MD -Outpatient Breast Imaging Work Phone: Start: 06-07-2024 End: 06-07-2024 [facility]ulatory [facility] Start: 05-20-2024 End: 05-20-2024 Dr. Mayda Garcia MD -[facility] Work Phone: Start: 05-20-2024 End: 05-20-2024 ambulatory Efewongbe Oleghe Facility:[facility] Start: 05-16-2024 End: 05-16-2024 Dr. Pepe Ruiz MD -[facility] Work Phone: Start: 05-16-2024 End: 05-16-2024 Dr. Pepe Ruiz MD -[facility] Work Phone: Start: 05-16-2024 End: 05-16-2024 ambulatory Efewongbe Oleghe Facility:[facility] Start: 05-16-2024 End: 05-16-2024 ambulatory Efewongbe Olee Facility:[facility] Start: 04-25-2024 ambulatory Efewongbe Oleghe Facili ty:[facility] Start: 04-25-2024 Dr. Russell Jang DO -[facility] Start: 04-21-2024 End: 04-21-2024 Dr. Pepe Ruiz MD -[facility] Work Phone: Start: 04-21-2024 End: 04-21-2024 ambulatory Efewongbe Oleghe Facility:[facility] Start: 04-20-2024 End: 04-20-2024 Vanita Venegas APPRAISER AUDITOR-C -Pulmonary Services/Neurology Work Phone: Start: 04-19-2024 End: 04-19-2024 Dr. Winston Johnson MD -[facility] Work Phone: Start: 04-19-2024 End: 04-20-2024 ambulatory Efewongbe Olee Facility:[facility] Start: 04-04-2024 ambulatory Efewongbe Oleghe Facili ty:[facility] Start: 09-07-2023 End: 09-07-[address] Mayda Garcia Work Phone: [facility] Work Phone: Start: 09-07-2023 End: 09-07-[address] Mayda Garcia Work Phone: [facility] Work Phone: Start: 08-19-2023 End: 08-19-[address] Mayda Garcia Work Phone: [facility] Internal Medicine Work Phone: Start: 08-19-2023 End: 09-01-[address] Mayda Garcia Work Phone: [facility] Work Phone: Start: 08-19-2023 End: 09-01-[address] Mayda Garcia Work Phone: [facility]-Cardiac Rehab Work Phone: Start: 08-19-[address] Susan Garcia Work Phone: [facility]-Cardiac Rehab Work Phone: Start: 08-14-2023 End: 08-14-[address] Mayda Garcia Work Phone: [facility] Work Phone: Start: 08-14-2023 End: 08-14-[address] Mayda Garcia Work Phone: [facility]-Cat Scan, [facility] Work Phone: Start: 08-10-2023 End: 08-10-[address] Mayda Garcia Work Phone: [facility] Work Phone: Start: 08-10-2023 End: 08-10-[address] Mayda Garcia Work Phone: [facility]-Nuclear Medicine, [facility] Work Phone: Start: 08-10-[address] Susan Garcia Work Phone: [facility]-Cardiac Rehab Work Phone: Start: 07-31-2023 End: 08-02-[address] Mayda Garcia Work Phone: [facility] Work Phone: Start: 07-31-2023 End: 08-02-[address] Mayda Garcia Work Phone: [facility]-Cardiac Rehab Work Phone: Start: 07-30-2023 End: 07-30-[address] Mayda Garcia Work Phone: [facility] Gastroenterology Work Phone: Start: 07-27-[address] Susan Garcia Work Phone: [facility]-Cardiac Rehab Work Phone: Start: 07-23-2023 End: 07-23-[address] Mayda Garcia Work Phone: [facility] Internal Medicine Work Phone: Start: 07-21-2023 End: 07-21-[address] Mayda Garcia Work Phone: [facility] Work Phone: Start: 07-21-2023 End: 07-21-[address] Mayda Garcia Work Phone: [facility]-Sleep Lab Work Phone: Start: 07-21-2023 End: 07-21-[address] Mayda Garcia Work Phone: [facility] Work Phone: Start: 07-21-2023 End: 07-21-[address] Mayda Garcia Work Phone: [facility]-Outpatient Bone Densitometry Work Phone: Start: 07-20-2023 End: 07-20-[address] Mayda Garcia Work Phone: [facility] Neurology Work Phone: Start: 07-01-2023 End: 07-02-[address] Mayda Garcia Work Phone: [facility] Work Phone: Start: 07-01-2023 End: 07-02-[address] Mayda Garcia Work Phone: [facility]-Cardiac Rehab Work Phone: Start: 07-01-[address] Susan Garcia Work Phone: [facility]-Cardiac Rehab Work Phone: Start: 06-25-2023 End: 06-25-[address] Mayda Garcia Work Phone: [facility] Work Phone: Start: 06-25-2023 End: 06-25-[address] Mayda Garcia Work Phone: [facility]-Sleep Lab Work Phone: Start: 06-22-[address] Susan Garcia Work Phone: [facility]-Cardiac Rehab Work Phone: Start: 06-17-2023 End: 06-17-[address] Mayda Garcia Work Phone: [facility] Work Phone: Start: 06-17-2023 End: 06-17-[address] [facility] Start: 06-10-2023 End: 06-10-[address] Mayda Garcia Work Phone: [facility]-Pulmonary Medicine [facility] Work Phone: Start: 06-01-2023 End: 06-01-[address] Mayda Garcia Work Phone: [facility] Work Phone: Start: 06-01-2023 End: 06-01-[address] Mayda Garcia Work Phone: [facility]-Cardiac Rehab Work Phone: Start: 05-25-2023 End: 05-25-[address] Mayda Garcia Work Phone: [facility] Work Phone: Start: 05-25-2023 End: 05-25-[address] Mayda Garcia Work Phone: [facility]-Outpatient Breast Imaging Work Phone: Start: 05-20-2023 End: 05-20-[address] Mayda Garcia Work Phone: [facility] Orthopaedic Specia Work Phone: Start: 05-18-2023 End: 05-18-[address] Mayda Garcia Work Phone: [facility] Neurology Work Phone: Start: 04-16-2023 End: 04-16-[address] Mayda Garcia Work Phone: [facility] Neurology Work Phone: Start: 04-08-2023 Non-patient / Non-visit Dr. Jia Garcia Work Phone: [facility] Start: 03-30-2023 End: 03-30-[address] Mayda Garcia Work Phone: [facility] Work Phone: Start: 03-30-2023 End: 03-30-[address] Mayda Garcia Work Phone: [facility] Work Phone: Start: 03-30-2023 End: 03-30-2023 Dr. Mayda Garcia Work Phone: [facility] Work Phone: Start: 03-19-2023 End: 03-19-[address] Mayda Garcia Work Phone: [facility] Work Phone: Start: 03-19-2023 End: 03-19-2023 Dr. Mayda Garcia Work Phone: [facility] Work Phone: Start: 03-16-2023 End: 03-16-[address] Mayda Garcia Work Phone: [facility] Internal Medicine Work Phone: Start: 03-16-2023 End: 03-16-2023 Dr. Mayda Garcia Work Phone: [facility] Internal Medicine Work Phone: Start: 02-18-2023 End: 02-18-[address] Mayda Garcia Work Phone: [facility] Work Phone: Start: 02-18-2023 End: 02-18-[address] Mayda Garcia Work Phone: [facility], [facility] Work Phone: Start: 02-18-2023 End: 02-18-2023 Dr. Mayda Garcia Work Phone: [facility]-Radiology, [facility] Work Phone: Start: 02-18-2023 End: 02-18-[address] Mayda Garcia Work Phone: [facility] Work Phone: Start: 02-18-2023 End: 02-18-2023 Dr. Mayda Garcia Work Phone: [facility] Work Phone: Start: 02-11-2023 End: 02-11-[address] Mayda Garcia Work Phone: [facility] Neurology Work Phone: Start: 02-11-2023 End: 02-11-2023 Dr. Mayda Garcia Work Phone: [facility] Neurology Work Phone: Start: 02-04-2023 End: 02-04-[address] [facility] Start: 02-04-2023 End: 02-04-2023 Dr. Mayda Garcia Work Phone: [facility] Start: 02-04-2023 End: 02-04-[address] Mayda Garcia Work Phone: [facility] Internal Medicine Work Phone: Start: 02-04-2023 End: 02-04-2023 Dr. Mayda Garcia Work Phone: [facility] Internal Medicine Work Phone: Start: 01-27-2023 End: 01-27-2023 Postop follow up visit related to original px Kassy Ken CNP Work Phone: [facility] Cardiovascular & Thoracic Surgery Comment on above: S/P CABG (coronary a rtery bypass graft) (Primary Dx) Start: 01-11-2023 End: 01-26-2023 Evaluation and management of inpatient Dr. Mayda Garcia Work Phone: [facility] Start: 01-11-2023 End: 01-26-2023 Dr. Mayda Garcia Work Phone: [facility] Start: 01-01-2023 Evaluation and management of inpatient [facility] Start: 01-01-2023 End: 01-11-2023 Evaluation and management of inpatient Azam Rose MD Work Phone: [facility] Comment on above: S/P CABG (coronary a rtery bypass graft) (Primary Dx); CAD in [place] artery; Coronary artery disease involving coronary bypass graft, unspecified whether angina present, unspecified whether [place] or transplanted heart Start: 12-29-2022 End: 12-29-2022 Encounter for other preprocedural examination [facility] Start: 12-29-2022 End: 12-30-2022 [facility] Start: 12-29-2022 End: 12-29-2022 Preoperative state Azam Rose MD Work Phone: [facility] [employer] Work Phone: Start: 12-29-2022 End: 12-29-2022 Subsequent hospital visit by physician Azam Rose MD Work Phone: [facility] Comment on above: Preoperative clearan ce Start: 12-24-2022 Admission to [facility] Kassy Ken CNP Work Phone: [facility] Cardi[facility] Thoracic Surgery Comment on above: 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); Preoperative clearance Start: 12-24-2022 ambulatory Kassy Tabares 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 Phone: [facility] Cardi[facility] Thoracic Surgery Start: 12-24-2022 Preoperative state Kassy reese 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 Phone: [facility] Work Phone: Start: 12-23-2022 Telephone encounter Azam fenton MD Work Phone: [facility] Cardiovascular [facility] Thoracic Surgery Comment on above: Surgery Scheduling Start: 12-23-2022 End: 12-23-2022 ambulatory AZAM ROSE [facility] Start: 12-23-2022 End: 12-23-2022 Office outpatient new 60 minutes Azam Rose MD Work Phone: [facility] Cardiovascular & Thoracic Surgery Comment on above: 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 Jia Garcia Work Phone: [facility] Inpatient Physicians Work Phone: Start: 12-19-2022 Dr. Mayda Garcia Work Phone: [facility] Inpatient Physicians Work Phone: Start: 12-19-2022 Non-patient / Non-visit Dr. Jia Garcia Work Phone: [facility] Start: 12-19-2022 Dr. Mayda Gracia Work Phone: [facility] Start: 12-18-2022 Non-patient / Non-visit Dr. Jia Garcia Work Phone: [facility] Inpatient Physicians Work Phone: Start: 12-18-2022 Dr. Mayda Garcia Work Phone: [facility] Inpatient Physicians Work Phone: Start: 12-18-2022 End: 12-19-2022 Evaluation and management of inpatient Dr. Mayda Garcia Work Phone: [facility] Work Phone: Start: 12-18-2022 End: 12-19-[address] Mayda Garcia Work Phone: [facility] Work Phone: Start: 12-18-2022 End: 12-19-2022 Dr. Mayda Garcia Work Phone: [facility] Work Phone: Start: 12-18-2022 Evaluation and management of inpatient Dr. Mayda Garcia Work Phone: [facility] Work Phone: Start: 12-16-2022 End: 12-16-[address] Mayda Garcia Work Phone: [facility] Work Phone: Start: 12-16-2022 End: 12-16-[address] Mayda Garcia Work Phone: [facility] Work Phone: Start: 12-16-2022 End: 12-16-2022 Dr. Mayda Garcia Work Phone: [facility] Work Phone: Start: 12-11-2022 End: 12-11-[address] Mayda Garcia Work Phone: [facility] Internal Medicine Work Phone: Start: 12-11-2022 End: 12-11-2022 Dr. Mayda Garcia Work Phone: [facility] Internal Medicine Work Phone: Start: 11-19-2022 End: 11-19-[address] Mayda Garcia Work Phone: [facility] Work Phone: Start: 11-19-2022 End: 11-19-2022 Dr. Mayda Garcia Work Phone: [facility] Work Phone: Start: 10-10-2022 End: 10-10-[address] Mayda Garcia Work Phone: [facility] Orthopaedic Specia Work Phone: Start: 10-03-2022 End: 10-03-[address] Mayda Garcia Work Phone: [facility] Work Phone: Start: 10-03-2022 End: 10-03-[address] Mayda Garcia Work Phone: [facility] Start: 10-03-2022 End: 10-03-[address] Mayda Garcia Work Phone: [facility] Internal Medicine Start: 10-02-2022 End: 10-02-[address] Mayda Garcia Work Phone: [facility] Neurology Start: 10-01-2022 End: 10-01-[address] Mayda Garcia Work Phone: [facility] Work Phone: Start: 10-01-2022 End: 10-01-[address] Mayda Garcia Work Phone: [facility], [facility] Start: 08-22-2022 End: 08-22-[address] Mayda Garcia Work Phone: [facility] Start: 08-13-2022 End: 08-14-2022 Emergency department patient visit Dr. Mayda Garcia Work Phone: [facility]-Emergency Department Start: 07-16-2022 End: 07-16-[address] Mayda Garcia Work Phone: [facility] Start: 06-30-2022 End: 06-30-[address] Mayda Garcia Work Phone: [facility] Start: 06-09-2022 End: 06-09-[address] Mayda Garcia Work Phone: [facility] Start: 06-07-2022 End: 06-07-2022 Emergency department patient visit Dr. Mayda Garcia Work Phone: [facility]-Emergency Department Start: 06-06-2022 End: 06-06-2022 Emergency department patient visit Dr. Mayda Garcia Work Phone: [facility]-Emergency Department Start: 05-06-2022 End: 05-06-[address] Mayda Garcia Work Phone: [facility] Work Phone: Start: 05-06-2022 End: 05-06-[address] Mayda Garcia Work Phone: [facility] Start: 04-02-2022 End: 04-02-[address] Mayda Garcia Work Phone: [facility] Start: 03-29-2022 End: 03-29-2022 Emergency department patient visit Dr. Mayda Garcia Work Phone: [facility]-Emergency Department Start: 03-14-2022 End: 03-14-2022 Emergency department patient visit Dr. Mayda Garcia Work Phone: [facility]-Emergency Department Start: 03-10-2022 End: 03-10-[address] Mayda Garcia Work Phone: [facility]-Pulmonary Medicine [facility] Start: 02-21-2022 End: 02-21-[address] Mayda Garcia Work Phone: [facility] Work Phone: Start: 02-21-2022 End: 02-21-[address] Mayda Garcia Work Phone: [facility]-Physical Therapy Start: 01-14-2022 End: 01-14-[address] Mayda Garcia Work Phone: [facility] Start: 01-10-2022 End: 01-10-[address] Mayda Garcia Work Phone: [facility] Work Phone: Start: 01-10-2022 End: 01-10-[address] Mayda Garcia Work Phone: [facility] Internal Medicine Start: 01-03-2022 Non-patient / Non-visit Dr. Jia Garcia Work Phone: [facility] Inpatient Physicians Start: 01-03-2022 Non-patient / Non-visit Dr. Jia Garcia Work Phone: [facility] Start: 01-02-2022 Non-patient / Non-visit Dr. Jia Garcia Work Phone: [facility] Inpatient Physicians Start: 01-02-2022 End: 01-03-2022 Evaluation and management of inpatient Dr. Mayda Garcia Work Phone: [facility]-Progressive Care Unit Start: 01-02-2022 End: 01-03-[address] Mayda Garcia Work Phone: [facility] Work Phone: Start: 01-02-2022 Non-patient / Non-visit Dr. Jia Garcia Work Phone: [facility] Start: 12-23-2021 End: 12-23-[address] Mayda Garcia Work Phone: [facility] Internal Medicine Start: 12-17-2021 End: 12-17-2021 Emergency department patient visit Dr. Mayda Garcia Work Phone: [facility]-Emergency Department Start: 12-12-2021 End: 12-12-[address] Myada Garcia Work Phone: [facility]-Outpatient Breast Imaging Start: 11-29-2021 Non-patient / Non-visit Dr. Jia Garcia Work Phone: [facility] Start: 11-29-2021 End: 11-29-[address] Mayda Garcia Work Phone: [facility]-Cardiovascular Services Start: 11-28-2021 End: 11-28-2021 Emergency department patient visit Dr. Mayda Garcia Work Phone: [facility]-Emergency Department Start: 11-06-[address] Mayda Garcia Work Phone: [facility] Start: 11-06-2021 End: 11-06-2021 Encounter for general adult medical examination without abnormal findings Dr. Mayda Garcia Work Phone: [facility] Internal Medicine Start: 11-06-2021 End: 11-06-[address] Mayda Lozano Phone: [facility] Internal Medicine Start: 11-05-2021 End: 11-05-[address] Mayda Lozano Phone: [facility]-Pulmonary Medicine [facility] Start: 10-25-2021 End: 10-25-2021 Emergency department patient visit Dr. Mayda Lozano Phone: [facility]-Emergency Department Start: 10-17-2021 End: 10-17-[address] Mayda Lozano Phone: [facility] Neurology Start: 07-18-2021 End: 07-18-[address] Mayda Lozano Phone: [facility]-Physical Therapy Start: 07-16-2021 End: 07-16-[address] Mayda Lozano Phone: [facility] Neurology Start: 07-10-2021 End: 07-10-2021 Patient encounter procedure Dr. Mayda Lozano Phone: [facility] Internal Medicine Start: 10-02-[address] Mayda Lozano Phone: [facility] Start: 02-25-2018 End: 03-01-2018 Patient encounter procedure TILA (PT) JENELLE [facility] Start: 02-22-2018 End: 02-22-2018 Patient encounter procedure JOSSUE FINLEY [facility] Start: 02-18-2018 End: 02-22-2018 Patient encounter procedure TILA (PT) JENELLE [facility] Start: 02-11-2018 End: 02-12-2018 Patient encounter procedure TILA (PT) [facility]ELLE [facility] Start: [facility] Start: 02-04-2018 End: 02-04-2018 Patient encounter procedure TILA (PT) [facility] Start: 02-02-2018 End: 02-03-2018 Patient encounter procedure TILA (PT) [facility] Start: 01-28-2018 End: 02-01-2018 Patient encounter procedure TILA (PT) [facility] Start: 01-26-2018 End: 01-27-2018 Patient encounter procedure TILA (PT) [facility] Start: 01-21-2018 End: 01-25-2018 Patient encounter procedure TILA (PT) [facility] Start: 01-14-2018 Patient encounter procedure TILA (PT) [facility] Start: 01-12-2018 End: 01-13-2018 Patient encounter procedure TILA (PT) [facility] Start: 01-11-2018 End: 01-11-2018 Patient encounter procedure MYNOR FLORES [facility] Start: 01-07-2018 End: 01-08-2018 Patient encounter procedure TILA (PT) [facility] Start: 01-05-2018 End: 01-06-2018 Patient encounter procedure TILA (PT) [facility] Start: 12-17-2017 End: 12-17-2017 Patient encounter procedure MYNOR FLORES [facility] Start: 12-09-2017 End: 12-09-2017 Patient encounter procedure MYNOR FLORES [facility] Start: 10-15-2017 End: 10-16-2017 Patient encounter procedure JOSSUE FINLEY [facility] Start: 10-14-2017 End: 10-14-2017 Patient encounter procedure JOSSUE FINLEY [facility] Start: 07-20-2017 End: 07-20-2017 Patient encounter procedure GLEN (INCINERATOR PLANT LABORER) [facility] Start: 02-09-2017 End: 02-09-2017 Ambulatory CHRIS YAO [facility] Procedures Date Procedure Procedure Detail Performing Clinician Start: 01-19-2025 Plain X-ray abdomen Dr. Mayda Garcia MD Work Phone: Start: 01-19-2025 Blood count smear mcrscp w/mnl difrntl wbc count Dr. Mayda Garcia MD Work Phone: Start: 01-19-2025 Mean corpuscular hemoglobin concentration determination Dr. Mayda Garcia MD Work Phone: Start: 01-19-2025 Nucleated red blood cell count procedure Dr. Mayda Garcia MD Work Phone: Start: 01-19-2025 Platelet mean volume determination Dr. Mayad Garcia MD Work Phone: Start: 01-19-[address] Mayda tanner MD Work Phone: Start: 01-19-2025 Total cholesterol:HDL ratio measurement Dr. Mayda Garcia MD Work Phone: Start: 11-14-2024 Cardiovascular stress test using pharmacologic [...] Mayda Garcia MD Work Phone: Start: 09-22-2024 RN CLINICAL DOCUMENTATION antibody measurement Dr. Mayda alanis MD Work [...] (coronary artery bypass graft) Kassy Tabares APRN - TREE TAPPING LABORER Work Phone: Start: 01-10-2023 Glucose quantitative blood xcpt reagent strip Azam Rose MD Work Phone: Start: 01-09-2023 Glucose quantitative blood xcpt reagent strip Azam Rose MD Work Phone: Start: 01-08-2023 Glucose quantitative blood xcpt reagent strip Azam Rose MD Work Phone: Start: 01-08-2023 Glucose quantitative blood xcpt reagent strip Azam Rose MD Work Phone: Start: 01-08-2023 Radiologic exam chest single view Shruthi Weaver 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 Phone: Start: 01-07-2023 Glucose quantitative blood xcpt reagent strip Azam Rose MD Work Phone: Start: 01-07-2023 Glucose quantitative blood xcpt reagent strip Azam Rose MD Work Phone: Start: 01-07-2023 Glucose quantitative blood xcpt reagent strip Azam Rose MD Work Phone: Start: 01-07-2023 Radiologic exam chest single view Shruthi Weaver 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 Phone: Start: 01-07-2023 Basic metabolic panel calcium total Shruthi Plunkettke 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 Phone: Start: 01-06-2023 Glucose quantitative blood xcpt reagent strip Azam Rose MD Work Phone: Start: 01-06-2023 Glucose quantitative blood xcpt reagent strip Azam Rose MD Work Phone: Start: 01-06-2023 Glucose quantitative blood xcpt reagent strip Azam Rose MD Work Phone: Start: 01-06-2023 Radiologic exam chest single view Shruthi Neumann Carmella 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 Phone: Start: 01-06-2023 Basic metabolic panel calcium total Shruthi Plunkettke 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 Phone: Start: 01-05-2023 Glucose quantitative blood xcpt reagent strip Azam Rose MD Work Phone: Start: 01-05-2023 Glucose quantitative blood xcpt reagent strip Azam Rose MD Work Phone: Start: 01-05-2023 Radiologic exam chest single view Shruthi Nel Weaver 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 Phone: Start: 01-05-2023 Compatibility each unit electronic Remington Hopkins MD Work Phone: Start: 01-05-2023 Basic metabolic panel calcium total Shruthi Plunkettke 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 Phone: Start: 01-04-2023 Glucose quantitative blood xcpt reagent strip Azam Rose MD Work Phone: Start: 01-04-2023 Glucose quantitative blood xcpt reagent strip Azam Rose MD Work Phone: Start: 01-04-2023 Radiologic exam chest single view Shruthi Nel Weaver 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 Phone: Start: 01-04-2023 End: 01-04-2023 Basic metabolic panel calcium total Shruthi Neumann Carmella 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 Phone: Start: 01-03-2023 Glucose quantitative blood xcpt reagent strip Azam Rose MD Work Phone: Start: 01-03-2023 Glucose quantitative blood xcpt reagent strip Azam Rose MD Work Phone: Start: 01-03-2023 Glucose quantitative blood xcpt reagent strip Azam Rose MD Work Phone: Start: 01-03-2023 Radiologic exam chest single view Shruthi Nel Weaver 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 Phone: Start: 01-03-2023 Basic metabolic panel calcium total Shruthi Neumann Carmella 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 Phone: Start: 01-02-2023 Glucose quantitative blood xcpt reagent strip Azam Rose MD Work Phone: Start: 01-02-2023 Glucose quantitative blood xcpt reagent strip Azam Rose MD Work Phone: Start: 01-02-2023 End: 01-02-2023 Basic metabolic panel calcium total Chandler Ram 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 Phone: Start: 01-02-2023 Glucose quantitative blood xcpt reagent strip Azam Rose MD Work Phone: Start: 01-02-2023 Glucose quantitative blood xcpt reagent strip Azam Rose MD Work Phone: Start: 01-02-2023 Radiologic exam chest single view Shruthi Nel Weaver 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 Phone: Start: 01-02-2023 Ecg routine ecg w/least 12 lds trcg only w/o i&r Shruthi Nel Weaver 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 Phone: Start: 01-02-2023 End: 01-02-2023 Glucose quantitative blood xcpt reagent strip Azam Rose MD Work Phone: Start: 01-02-2023 End: 01-02-2023 Glucose quantitative blood xcpt reagent strip Azam Rose MD Work Phone: Start: 01-02-2023 Glucose quantitative blood xcpt reagent strip Azam Rose MD Work Phone: Start: 01-02-2023 End: 01-02-2023 Basic metabolic panel calcium total Shruthi Nel Weaver 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 Phone: Start: 01-01-2023 Glucose quantitative blood [...] Phone: Start: 01-01-2023 Blood count hematocrit Mynor Carranza Dionna A PRN - TREE T[employer]ING [employer]ORER Work Phone: Start: 01-01-2023 Compatibility each unit electronic Mynor Carranza Dionna 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 Phone: Start: 01-01-2023 End: 01-01-2023 TRANSFUSE RED BLOOD CELLS Mynor R Gene t 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 Phone: Start: 01-01-2023 Radiologic exam chest single view Mynor R Dionna 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 Phone: Start: 01-01-2023 End: 01-01-2023 Blood count complete automated Mynor R Dionna 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 Phone: Start: 01-01-2023 Echo transesophag r-t 2d w/prb img acquisj i&r Azam Rose MD Work Phone: Start: 01-01-2023 Ecg routine ecg w/least 12 lds trcg only w/o i&r Shruthi Weaver 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 Phone: Start: 01-01-2023 End: 01-01-2023 Glucose [...] grafting S/P CABG (coronary artery bypass graft) Kassylee Tabares 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 Phone: History of coronary artery bypass grafting Dr. Mayda Garcia Work Phone: History of coronary artery bypass grafting Dr. Mayda Garcia MD Work Phone: History of coronary artery bypass grafting Dr. Mayda Garcia MD Work Phone: History of coronary artery bypass grafting Mikhail LÓPEZ History of coronary artery bypass grafting Dr. Maurilio Bradford MD History of coronary artery bypass grafting Suzi Appiah APPRAISER AUDITOR-C SARS-CoV-2 & FLU Ant igen (Rapid) Dr. Mayda Garcia Work Phone: Streptococcus pyogen es antigen assay Dr. Mayda Garcia Work Phone: Urine culture Dr. Mayda Garcia Work Phone: Plan of Treatment Date Care Activity Detail Author Start: 04-07-2025 ambulatory Facility:[facility] Start: 01-30-2025 End: 01-30-2025 -[facility] Work Phone: Start: 01-26-2025 End: 01-26-2025 -[facility] Work Phone: Start: 01-23-2025 End: 01-23-2025 -[facility] Work Phone: Start: 11-14-2024 Patient discharge [facility] Start: 11-14-2024 [facility] Start: 11-13-2024 Following clinical pathway protocol [facility] Start: 11-13-2024 Ambulation without limitation [facility] Start: 11-13-2024 Assessment of risk of venous thromboembolism [facility] Start: 11-13-2024 Incentive spirometry [facility] Start: 11-13-2024 Insertion of catheter into peripheral vein [facility] Start: 11-13-2024 Measuring intake and output [facility] Start: 11-13-2024 Oxygen therapy [facility] Start: 11-13-2024 Providing care according to standard [facility] Start: 11-13-2024 Referral to peer financial counselor [facility] Start: 11-13-2024 [facility] Start: 11-13-2024 Thyroid stimulating hormone measurement [facility] Start: 11-13-2024 Verification routine [facility] Start: 11-13-2024 Hospital admission, emergency, from emergency room, medical nature [facility] Start: 11-13-2024 Admission procedure [facility] Start: 11-13-2024 [facility] Start: 09-22-2024 Cytoplasmic ANCA Screen [facility] Start: 09-21-2024 Patient referral [facility] Work Phone: Start: 09-16-2024 [facility] Start: 07-15-2024 [facility] Start: 07-14-2024 [facility] Start: 07-14-2024 [facility] Start: 05-20-2024 Patient referral [facility] Work Phone: Start: 01-08-2024 Creatinine measurement Creatinine Level [facility] Start: 01-08-2024 Potassium measurement Potassium Level [facility] Start: 01-02-2024 Echocardiography Echocardiogram [facility] Start: 12-30-2023 Hemoglobin A1c measurement Diabetes: Hemoglobin A1C [facility] Start: 07-23-2023 Patient referral [facility] Work Phone: Start: 06-17-2023 Patient referral [facility] Work Phone: Start: 06-01-2023 Patient referral to dietitian [facility] Start: 05-20-2023 Patient referral [facility] Work Phone: Start: 03-19-2023 Patient referral [facility] Work Phone: Start: 02-23-2023 Blood chemistry [facility] Start: 02-16-2023 Blood chemistry [facility] Start: 02-09-2023 Blood chemistry [facility] Start: 02-02-2023 Blood chemistry [facility] Start: 01-28-2023 Development of care plan [facility] Start: 01-26-2023 Patient discharge [facility] Start: 01-22-2023 Referral to service [facility] Start: 01-22-2023 Continuous positive airway pressure ventilation treatment [facility] Start: 01-21-2023 Following clinical pathway protocol [facility] Start: 01-21-2023 [facility] Start: 01-19-2023 End: 01-19-2023 Patient encounter procedure 01/19/2023 11:30 AM EDT Office Visit [facility] [address] [place] [id number] Kassy Tabares, MARKETING TECHNOLOGY COORDINATOR - TREE TAPPING LABORER [address] [place] [address] [facility] Start: 01-14-2023 End: 01-14-2023 Speech therapy management [facility] Start: 01-13-2023 Speech therapy assessment [facility] Start: 01-12-2023 [facility] Start: 01-12-2023 Development of care plan [facility] Start: 01-12-2023 Developing a treatment plan [facility] Start: 01-11-2023 Seizure precautions [facility] Start: 01-11-2023 Provision of activity privileges [facility] Start: 01-11-2023 Recommendation to continue with treatment [facility] Start: 01-11-2023 Wound care [facility] Start: 01-11-2023 Admission procedure [facility] Start: 01-11-2023 Measuring intake and output [facility] Start: 01-11-2023 Patient referral to dietitian [facility] Start: 01-11-2023 Referral to occupational therapist [facility] Start: 01-11-2023 Referral to service [facility] Start: 01-11-2023 Vital signs measurements [facility] Start: 01-11-2023 End: 01-11-2023 [facility] Start: 01-02-2023 Influenza vaccination Influenza Vaccine (#1) [facility] Start: 01-01-2023 End: 01-01-2023 Admission to same day surgery center 01/01/2023 7:30 AM EDT - 01/01/2023 12:30 PM EDT Surgery [facility] [address] [place] [id number] Azam Rose MD [address] [place] [address], [address] [place], [place] [id number] CABG AND SIS [34633 (CPT )] [facility] Comment on above: CABG AND SIS [61713 (CPT )] Start: 01-01-2023 End: 01-01-2023 Anesthesia consultation 01/01/2023 7:30 AM EDT Anesthesia Event [facility] [address] [place] [address] Adilia Carson PA [address] [place] [address] [facility] Start: 01-01-2023 End: 01-01-2023 Cabg w/arterial graft three arterial grafts CABG X3 ARTERIAL GRAFTS Atherosclerotic heart diseas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 angina pectoris 01/01/2023 7:30 AM EDT [facility] Operating Room Start: 01-01-2023 End: 01-01-2023 Echo transesophag r-t 2d w/prb img acquisj i&r Echocardiography transesophageal real-time Atherosclerotic heart diseas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 angina pectoris 01/01/2023 7:30 AM EDT [facility] Operating Room Start: 01-01-2023 Subsequent hospital visit by physician 01/01/2023 7:30 AM EDT Hospital Encounter [facility] [address] [place] [address] Azam Rose MD [address] [facility], [address] [place] [address] [facility] Start: 12-26-2022 End: 12-26-2022 Admission to establishment 12/26/2022 1:00 PM EDT Pre-Admission Testing [facility] Pre-Admit Testing [address] [place] [address] [facility] Pre-[facility]mit Testing Start: 12-24-2022 End: 02-23-2023 Basic metabolic 1998 panel - Serum or Plasma Basic metabolic panel Lab Routine Preoperative clearance Expected: 12/24/2022, Expires: 02/23/2023 [facility] [employer] [facility] Work Phone: Comment on above: Expected: 12/24/2022, Expires: Start: 12-24-2022 End: 02-23-2023 Blood type and Crossmatch panel - Blood Type and Screen Lab Routine Preoperative clearance Expected: 12/24/2022, Expires: 02/23/2023 [facility] Comment on above: Expected: 12/24/2022, Expires: Start: 12-24-2022 End: 02-23-2023 CBC panel - Blood by Automated count CBC Lab Routine Preoperative clearance Expected: 12/24/2022, Expires: 02/23/2023 [facility] Comment on above: Expected: 12/24/2022, Expires: Start: 12-24-2022 End: 02-23-2023 ECG 12 lead ECG 12 lead CV ECG Routine Preoperative clearance Expected: 12/24/2022, Expires: 02/23/2023 [facility] Comment on above: Expected: 12/24/2022, Expires: Start: 12-24-2022 End: 02-23-2023 Hemoglobin A1c/Hemoglobin.total in Blood Hemoglobin A1c Lab Routine Preoperative clearance Expected: 12/24/2022, Expires: 02/23/2023 [facility] Comment on above: Expected: 12/24/2022, Expires: Start: 12-24-2022 End: 02-23-2023 Prepare RBC: 2 Units Prepare RBC: 2 Units Blood Bank Routine Preoperative clearance Expected: 12/24/2022, Expires: 02/23/2023 [facility] Comment on above: Expected: 12/24/2022, Expires: Start: 12-24-2022 End: 02-23-2023 XR Chest 2 Views XR chest 2 views Imaging Routine Preoperative clearance Expected: 12/24/2022, Expires: 02/23/2023 [facility] Comment on above: Expected: 12/24/2022, Expires: Start: 12-19-2022 Patient discharge [facility] Start: 12-19-2022 Patient referral [facility] Work Phone: Start: 12-18-2022 Referral to peer financial counselor [facility] Start: 12-18-2022 Ambulation without limitation [facility] Start: 12-18-2022 Assessment of risk of venous thromboembolism [facility] Start: 12-18-2022 Insertion of catheter into peripheral vein [facility] Start: 12-18-2022 Oxygen therapy [facility] Start: 12-18-2022 Providing care according to standard [facility] Start: 12-18-2022 Admission procedure [facility] Start: 12-18-2022 Following clinical pathway protocol [facility] Start: 12-18-2022 End: 12-18-2022 [facility] Start: 12-12-2022 Screening for malignant neoplasm of breast Mammogram [facility] Start: 06-07-2022 Incentive spirometry [facility] Start: 06-07-2022 [facility] Start: 06-06-2022 Seizure precautions [facility] Start: 03-14-2022 Seizure precautions [facility] Start: 01-10-2022 Patient referral [facility] Work Phone: Start: 01-03-2022 Patient discharge [facility] Work Phone: Start: 01-02-2022 Care regimes management [facility] Work Phone: Start: 01-02-2022 Notification of physician [facility] Work Phone: Start: 01-02-2022 [facility] Work Phone: Start: 01-02-2022 Following clinical pathway protocol [facility] Work Phone: Start: 01-02-2022 Assessment of risk of venous thromboembolism [facility] Work Phone: Start: 01-02-2022 Catheterization of vein [facility] Work Phone: Start: 01-02-2022 Insertion of catheter into peripheral vein [facility] Work Phone: Start: 01-02-2022 Measuring intake and output [facility] Work Phone: Start: 01-02-2022 Providing care according to standard [facility] Work Phone: Start: 01-02-2022 Provision of activity privileges [facility] Work Phone: Start: 01-02-2022 [facility] Work Phone: Start: 01-02-2022 Admission procedure [facility] Work Phone: Start: 11-28-2021 US.doppler Lower extremity vein [facility] Work Phone: Start: 10-25-2021 [facility] Work Phone: Start: 07-19-2021 COVID-19 Vaccine (4 - Booster for Moderna series) COVID-19 Vaccine (4 - Booster for Moderna series) [facility] Start: 07-19-2021 COVID-19 Vaccine (4 - Moderna series) COVID-19 Vaccine (4 - Moderna series) [facility] Start: 01-17-2021 DTaP/Tdap/Td Vaccines (2 - Td or Tdap) DTaP/Tdap/Td Vaccines (2 - Td or Tdap) [facility] Start: 07-18-2011 Hepatitis B Vaccines (3 of 3 - 19+ 3-dose series) Hepatitis B Vaccines (3 of 3 - 19+ 3-dose series) [facility] Start: 07-18-2011 Hepatitis B Vaccines (3 of 3 - Risk 3-dose series) Hepatitis B Vaccines (3 of 3 - Risk 3-dose series) [facility] Start: 05-04-2007 Pneumococcal Vaccine: 65+ Years (2 - PCV) Pneumococcal Vaccine: 65+ Years (2 - PCV) [facility] Start: 2002 Zoster Vaccines (1 of 2) Zoster Vaccines (1 of 2) [facility] Start: 1970 Hepatitis C screening Hepatitis C Screening [facility] Start: 1964 Depression Screening Depression Screening [facility] Start: 1962 Diabetic foot examination Diabetes: Foot Exam [facility] Start: 1962 Glaucoma screening Diabetes: Retinopathy Screening [facility] Start: 1962 Preventive dental service Diabetes: Dental Exam [facility] Start: 1952 Hemoglobin A1c measurement Diabetes: Hemoglobin A1C [facility] Start: 1952 Lipid panel Lipid Panel [facility] Start: 1952 Medicare Advantage Annual Wellness Visit (AWV) Medicare Advantage Annual Wellness Visit (AWV) [facility] Start: 1952 Screening for malignant neoplasm of colon [facility] Start: 1952 Screening for osteoporosis Bone Density Scan [facility] Antibody to lupus La protein measurement [facility] Antibody to SS-A measurement [facility] Basic metabolic 2007 panel with ionized calcium - Serum or Plasma [facility] Basic metabolic 2007 panel with ionized calcium - Serum or Plasma [facility] Blood ammonia measurement [facility] Work Phone: Blood ammonia measurement [facility] Blood ammonia measurement [facility] Blood chemistry [facility] C reactive protein [Mass/volume] in Serum or Plasma [facility] CBC W Auto Different ial panel - Blood [facility] Complete blood count [facility] Work Phone: Complete blood count [facility] Comprehensive metabo lic 1999 panel - Serum or Plasma [facility] CT Abdomen and Pelvi s W contrast IV [facility] Cytoplasmic ANCA Screen [facility] DNA double strand Ab [Units/volume] in Serum [facility] DXA Bone [Mass/Area] Bone density [facility] Erythrocyte sedimentation rate [facility] Folate [Mass/volume] in Serum or Plasma [facility] Hemoglobin A1c/Hemoglobin.total in Blood [facility] Hemoglobin A1c/Hemoglobin.total in Blood [facility] Hemoglobin A1c/Hemoglobin.total in Blood [facility] Hepatic function panel [facility] Hepatic function panel [facility] Lipid 1995 panel - S ronnell or Plasma [facility] Lipid 1995 panel - S ronnell or Plasma [facility] MG Breast - bilatera l Screening [facility] Work Phone: Natriuretic peptide. B prohormone N-Terminal [Mass/volume] in Serum or Plasma [facility] Patient Education [facility] Work Phone: Patient referral [facility] Work Phone: Radionuclide gastric emptying study [facility] Respiratory pathogen s DNA and RNA panel - Respiratory specimen by GERONIMO with probe detection [facility] Rheumatoid factor [Presence] in Serum [facility] Streptococcus pyogen es antigen assay Group A Streptococcus Rapid Screen [facility] Work Phone: Thiamine measurement [facility] [facility] Thyroid stimulating hormone measurement [facility] Troponin T.cardiac [Mass/volume] in Serum or Plasma by High sensitivity method [facility] Valproate [Mass/volu me] in Serum or Plasma [facility] Viral nucleic acid assay [facility] Vitamin B12 measurement [facility] End: 12-29-2022 XR Chest 2 Views [employer] Work Phone: Comment on above: Once for 1 Occurrences starting 12/30/19 23 until 12/29/2022 XR Shoulder GE 2 Views [facility] Work Phone: [facility] [place] Immunizations Immunization Date Immunization Notes Care Provider Farzana martinez 02-09-2024 RSV Adult BiValent (Abrysvo) Dr. Mayda Garcia MD Work Phone: [facility] 02-04-2023 influenza, injectabl e, quadrivalent, preservative free Dr. Mayda Garcia Work Phone: [facility] 01-14-2023 Pneumococcal Vaccine PCV20 (Prevnar 20) Dr. Mayda Garcia Work Phone: [facility] 03-10-2022 influenza, injectabl e, quadrivalent, preservative free Dr. Mayda Garcia Work Phone: [facility] 03-10-2022 influenza, seasonal, injectable Dr. Mayda Garcia Work Phone: [facility] 03-10-2022 influenza virus vaccine, unspecified formulation Azam Rose MD Work Phone: [facility] 05-24-2021 Covid (Moderna) Dr. Yaron Garcia Work Phone: [facility] 08-09-2020 Covid (Modern) Dr. Yaron Garcia Work Phone: [facility] 07-11-2020 Kuldipid (Moderna) Dr. Yaron Garcia Work Phone: [facility] 02-10-2020 influenza, injectabl e, quadrivalent, preservative free Dr. Mayda Garcia Work Phone: [facility] 02-10-2020 influenza, seasonal, injectable Dr. Mayda Garcia Work Phone: [facility] 02-10-2020 Seasonal, quadrivale nt, recombinant, injectable influenza vaccine, preservative free Dr. Mayda Garcia Work Phone: [facility] 02-10-[address] Mayda Garcia Work Phone: [facility] 02-10-2019 Dr. Mayda Garcia MD Work Phone: [facility] 03-21-2018 influenza, injectabl e, quadrivalent, preservative free Dr. Mayda Garcia Work Phone: [facility] 03-21-2018 influenza, seasonal, injectable Dr. Mayda Garcia Work Phone: [facility] 03-21-2018 Seasonal, quadrivale nt, recombinant, injectable influenza vaccine, preservative free Dr. Mayda Garcia Work Phone: [facility] 03-03-2016 influenza, injectabl e, quadrivalent, preservative free Dr. Mayda Garcia Work Phone: [facility] 04-11-2015 influenza, injectabl e, quadrivalent, preservative free Dr. Mayda Garcia Work Phone: [facility] Payers Date Payer Category Payer Self-pay [id number] 2021 Medicare ANTHEM MEDICARE ADVANTAGE ANTHEM MEDIBLUE [id number] 2021-Present [address] [place] [address] Medicare HMO [id number] 2021 Unknown [id number] 2011 Medicare [id number] Medicare [id number] Medicare [id number] Unknown [id number] Unknown [id number] 2.840.1.513663.3.579.2.462 Unknown [id number] 2.840.1.921190.3.579.2.462 Unknown [id number] 2.840.1.107174.3.579.2.462 Unknown [id number] 2.840.1.932678.3.579.2.462 Unknown [id number] 2.16840.1.644540.3.579.2.462 Unknown [id number] 2.16840.1.000822.3.579.2.462 Unknown [id number] 2.16840.1.127875.3.579.2.462 Unknown [id number] 2.840.1.570540.3.579.2.462 Unknown [id number] 2.16.840.1.022589.3.579.2.462 Unknown [id number] 2.840.1.890292.3.579.2.462 Unknown [id number] 2.16.840.1.020084.3.579.2.462 Unknown [id number] 2..840.1.455074.3.579.2.462 Unknown [id number] 2.840.1.513161.3.579.2.462 Unknown [id number] 2.840.1.695332.3.579.2.462 Unknown [id number] 2.840.1.795729.3.579.2.462 Unknown [id number] 2.840.1.299786.3.579.2.462 Unknown [id number] 2.840.1.373056.3.579.2.462 Unknown [id number] 2.840.1.805882.3.579.2.462 Unknown [id number] 2.840.1.925710.3.579.2.462 Unknown [id number] 2.840.1.405290.3.579.2.462 Unknown [id number] 2.840.1.860945.3.579.2.462 Unknown [id number] 2.840.1.227703.3.579.2.462 Unknown [id number] 2.840.1.123103.3.579.2.462 Unknown [id number] 2.840.1.772374.3.579.2.462 Unknown [id number] 2.840.1.750955.3.579.2.462 Unknown [id number] 2.840.1.766410.3.579.2.462 Unknown [id number] 2.840.1.123792.3.579.2.462 Unknown [id number] 2.16.840.1.649042.3.579.2.462 Unknown [id number] 2.16.840.1.309421.3.579.2.462 Unknown [id number] 2.16.840.1.356203.3.579.2.462 Unknown [id number] 2.16.840.1.073488.3.579.2.462 Unknown [id number] 2.16.840.1.753767.3.579.2.462 Unknown [id number] 2.16.840.1.302871.3.579.2.462 Unknown [id number] 2.16.840.1.885388.3.579.2.462 Unknown [id number] 2.16.840.1.960885.3.579.2.462 Unknown [id number] 2.16.840.1.596875.3.579.2.462 Unknown [id number] 2.16.840.1.645943.3.579.2.462 Unknown [id number] 2.16.840.1.324617.3.579.2.462 Unknown [id number] 2.16.840.1.319040.3.579.2.462 Unknown [id number] 2.16.840.1.644912.3.579.2.462 Social History Date Type Detail Facility Start: 10-25-2021 End: 08-19-2023 Tobacco smoking status NMIS Unknown if ever smoked [facility] Start: 09-26-2020 Rare [facility] Start: 09-26-2020 None [facility] Start: 09-26-2020 Alone [facility] Start: 09-26-2020 Non-smoker [facility] Start: 1950 Sex Assigned At Female W [facility] Start: 12-22-2022 End: 01-26-2025 Tobacco smoking status NHIS Never smoked tobacco [facility] Start: 12-22-2022 Tobacco use and exposure Smokeless tobacco non-user [facility] Start: 12-23-2022 Alcohol intake Lifetime non-d domenica (finding) [facility] Start: 12-22-2022 End: 01-19-2023 History of Social function [facility] Start: 12-22-2022 End: 01-19-2023 Tobacco use panel [facility] Start: 1950 Sex Assigned At Not on file [facility] Start: 12-13-2022 End: 01-19-2023 Exposure to SARS-CoV-2 (event) Not sure [facility] Start: 12-29-2022 End: 01-19-2023 Alcohol intake Current drinker of alcohol (finding) [facility] Start: 12-29-2022 Alcohol Comment once a year [facility] Within the last year , have you been afraid of your partner or ex-partner? No [facility] Start: 07-14-2024 End: 07-15-2024 Sex Female (finding) [facility] Medical Equipment Procedure Code Equipment Code Equipment Origin al Text Equipment Identifier Dates Blood Sugar Diagnostic (True Metrix Glucose Test Strip) strip Start: 07-17-2021 Blood Sugar Diagnostic (True Metrix Glucose Test Strip) strip Start: 02-07-2020 End: 02-07-2020 Blood Sugar Diagnostic (True Metrix Glucose Test Strip) strip Start: 02-07-2020 End: 07-17-2021 [facility] lancets Start: 11-11-2019 End: 11-11-2019 Blood Sugar Diagnostic (True Metrix Glucose Test Strip) strip Start: 07-17-2021 Blood Sugar Diagnostic (True Metrix Glucose Test Strip) strip Start: 02-07-2020 End: 02-07-2020 Blood Sugar Diagnostic (True Metrix Glucose Test Strip) strip Start: 02-07-2020 End: 07-17-2021 [facility] lancets Start: 11-11-2019 End: 11-11-2019 Blood Sugar Diagnostic (True Metrix Glucose Test Strip) strip Start: 07-17-2021 Blood Sugar Diagnostic (True Metrix Glucose Test Strip) strip Start: 02-07-2020 End: 02-07-2020 Blood Sugar Diagnostic (True Metrix Glucose Test Strip) strip Start: 02-07-2020 End: 07-17-2021 [facility] n lancets Start: 11-11-2019 End: 11-11-2019 Blood Sugar Diagnostic (True Metrix Glucose Test Strip) strip Start: 07-17-2021 Blood Sugar Diagnostic (True Metrix Glucose Test Strip) strip Start: 02-07-2020 End: 02-07-2020 Blood Sugar Diagnostic (True Metrix Glucose Test Strip) strip Start: 02-07-2020 End: 07-17-2021 [facility] lancets Start: 11-11-2019 End: 11-11-2019 Blood Sugar Diagnostic (True Metrix Glucose Test Strip) strip Start: 07-17-2021 Blood Sugar Diagnostic (True Metrix Glucose Test Strip) strip Start: 02-07-2020 End: 02-07-2020 Blood Sugar Diagnostic (True Metrix Glucose Test Strip) strip Start: 02-07-2020 End: 07-17-2021 [facility] n lancets Start: 11-11-2019 End: 11-11-2019 Blood Sugar Diagnostic (True Metrix Glucose Test Strip) strip Start: 07-17-2021 Blood Sugar Diagnostic (True Metrix Glucose Test Strip) strip Start: 02-07-2020 End: 02-07-2020 Blood Sugar Diagnostic (True Metrix Glucose Test Strip) strip Start: 02-07-2020 End: 07-17-2021 [facility] n lancets Start: 11-11-2019 End: 11-11-2019 Blood Sugar Diagnostic (True Metrix Glucose Test Strip) strip Start: 07-17-2021 Blood Sugar Diagnostic (True Metrix Glucose Test Strip) strip Start: 02-07-2020 End: 02-07-2020 Blood Sugar Diagnostic (True Metrix Glucose Test Strip) strip Start: 02-07-2020 End: 07-17-2021 [facility] n lancets Start: 11-11-2019 End: 11-11-2019 Blood Sugar Diagnostic (True Metrix Glucose Test Strip) strip Start: 07-17-2021 Blood Sugar Diagnostic (True Metrix Glucose Test Strip) strip Start: 02-07-2020 End: 02-07-2020 Blood Sugar Diagnostic (True Metrix Glucose Test Strip) strip Start: 02-07-2020 End: 07-17-2021 [facility] lancets Start: 11-11-2019 End: 11-11-2019 Blood Sugar Diagnostic (True Metrix Glucose Test Strip) strip Start: 07-17-2021 Blood Sugar Diagnostic (True Metrix Glucose Test Strip) strip Start: 02-07-2020 End: 02-07-2020 Blood Sugar Diagnostic (True Metrix Glucose Test Strip) strip Start: 02-07-2020 End: 07-17-2021 [facility] n lancets Start: 11-11-2019 End: 11-11-2019 Blood Sugar Diagnostic (True Metrix Glucose Test Strip) strip Start: 07-17-2021 Lancets (Bd Ultr a Fine Lancets) 33 gauge misc Start: 04-02-2022 Blood Sugar Diagnostic (True Metrix Glucose Test Strip) strip Start: 02-07-2020 End: 02-07-2020 Blood Sugar Diagnostic (True Metrix Glucose Test Strip) strip Start: 02-07-2020 End: 07-17-2021 [facility] n lancets Start: 11-11-2019 End: 11-11-2019 Blood Sugar Diagnostic (True Metrix Glucose Test Strip) strip Start: 07-17-2021 Lancets (Bd Ultr a Fine Lancets) 33 gauge misc Start: 04-02-2022 Blood Sugar Diagnostic (True Metrix Glucose Test Strip) strip Start: 02-07-2020 End: 02-07-2020 Blood Sugar Diagnostic (True Metrix Glucose Test Strip) strip Start: 02-07-2020 End: 07-17-2021 [facility] n lancets Start: 11-11-2019 End: 11-11-2019 Blood Sugar Diagnostic (True Metrix Glucose Test Strip) strip Start: 07-17-2021 Lancets (Bd Ultr a Fine Lancets) 33 gauge misc Start: 04-02-2022 Blood Sugar Diagnostic (True Metrix Glucose Test Strip) strip Start: 02-07-2020 End: 02-07-2020 Blood Sugar Diagnostic (True Metrix Glucose Test Strip) strip Start: 02-07-2020 End: 07-17-2021 [facility] n lancets Start: 11-11-2019 End: 11-11-2019 [...] (True Metrix Glucose Test Strip) strip Start: 03-16-2022 Lancets (Bd Ultr a Fine Lancets) 33 gauge misc Start: 04-02-2022 Blood Sugar Diagnostic (True Metrix Glucose Test Strip) strip Start: 02-07-2020 End: 02-07-2020 Blood Sugar Diagnostic (True Metrix Glucose Test Strip) strip Start: 02-07-2020 End: 07-17-2021 [facility] lancets Start: 11-11-2019 End: 11-11-2019 Blood Sugar Diagnostic (True Metrix Glucose Test Strip) strip Start: 07-17-2021 Lancets (Bd Ultr a Fine Lancets) 33 gauge misc Start: 04-02-2022 Blood Sugar Diagnostic (True Metrix Glucose Test Strip) strip Start: 02-07-2020 End: 02-07-2020 Blood Sugar Diagnostic (True Metrix Glucose Test Strip) strip Start: 02-07-2020 End: 07-17-2021 [facility] lancets Start: 11-11-2019 End: 11-11-2019 Blood Sugar Diagnostic (True Metrix Glucose Test Strip) strip Start: 07-17-2021 Lancets (Bd Ultr a Fine Lancets) 33 gauge misc Start: 04-02-2022 Blood Sugar Diagnostic (True Metrix Glucose Test Strip) strip Start: 02-07-2020 End: 02-07-2020 Blood Sugar Diagnostic (True Metrix Glucose Test Strip) strip Start: 02-07-2020 End: 07-17-2021 [facility] lancets Start: 11-11-2019 End: 11-11-2019 Blood Sugar Diagnostic (True Metrix Glucose Test Strip) strip Start: 07-17-2021 Lancets (Bd Ultr a Fine Lancets) 33 gauge misc Start: 04-02-2022 Blood Sugar Diagnostic (True Metrix Glucose Test Strip) strip Start: 02-07-2020 End: 02-07-2020 Blood Sugar Diagnostic (True Metrix Glucose Test Strip) strip Start: 02-07-2020 End: 07-17-2021 [facility] lanc[facility] Start: 11-11-2019 End: 11-11-2019 Blood [...] Strip) strip Start: 07-17-2021 End: 06-17-2023 [facility] n lancets Start: 11-11-2019 End: 11-11-2019 [...] Strip) strip Start: 07-17-2021 End: 06-17-2023 [facility] thi n lancets Start: 11-11-2019 End: 11-11-2019 [...] Strip) strip Start: 07-17-2021 End: 06-17-2023 [facility] lanc[facility] Start: 11-11-2019 End: 11-11-2019 Lancets [...] Strip) strip Start: 07-17-2021 End: 06-17-2023 [facility] thi n lancets Start: 11-11-2019 End: 11-11-2019 [...] Strip) strip Start: 07-17-2021 End: 06-17-2023 [facility] thi n lancets Start: 11-11-2019 End: 11-11-2019 [...] Strip) strip Start: 07-17-2021 End: 06-17-2023 [facility] lanc[facility] Start: 11-11-2019 End: 11-11-2019 Lancets [...] Strip) strip Start: 07-17-2021 End: 06-17-2023 [facility] thi n lancets Start: 11-11-2019 End: 11-11-2019 [...] Assessment Result Facility 11-14-2024 Functional status Ambulates [facility] Work Phone: 01-26-2023 Functional status Chair [facility] Work Phone: 01-24-2023 Functional status Well [facility] Work Phone: 12-19-2022 Functional status Bedrest [facility] Work Phone: 01-03-2022 Functional status Ambulates [facility] Work Phone: 01-03-2022 Functional status None [facility] Work Phone: Mental Status Date Assessment Result Facility 11-14-2024 Cognitive function Voice/Name [facility] Work Phone: 11-13-2024 Cognitive function Awake;Alert;A ppropriate;Follow s Commands [facility] Work Phone: 09-16-2024 Cognitive function Voice/Name [facility] Work Phone: 07-15-2024 Cognitive function Awake;Alert;A ppropriate;Follow s Commands [facility] Work Phone: 01-26-2023 Cognitive function Voice/Name [facility] Work Phone: 12-19-2022 Cognitive function Voice/Name [facility] Work Phone: 12-18-2022 Cognitive function Level Of Cons ciousness Awake;Alert [facility] Work Phone: 08-13-2022 Cognitive function Voice/Name [facility] Work Phone: 06-07-2022 Cognitive function Level Of Cons ciousness Awake;Alert;Appropriate [facility] Work Phone: 06-06-2022 Cognitive function Awake;Alert;A ppropriate;Follow s Commands [facility] Work Phone: 03-14-2022 Cognitive function Voice/Name [facility] Work Phone: 01-03-2022 Cognitive function Voice/Name [facility] Work Phone: 12-17-2021 Cognitive function Level Of Cons ciousness Awake;Alert;Appropriate [facility] Work Phone: 10-25-2021 Cognitive function Awake;Drowsy [facility] Work Phone: Clinical Notes 06-07-2022 to 01-30-2025 Note Date & Type Note Facility 01-30-2025 Progress note Note Date/Time January 30, 2025 2:13pm [facility] [address] [place] [address] OFFICE VISIT Date of Service: 01/30/25 MR#: [id number] Acct: [id number] Patient: LACY ALVARADO Rep #: [id number] : 1950 Provider: Dr. Robin Ruiz MD Age/Sex: 74/F Location: [facility] Status: Signed Intake Vital Signs 01/23/25 07:16 01/26/25 12:34 01/30/25 14:11 Height 5 ft 2 in 5 ft 2 in 5 ft 2 in Weight: 169 lb 168 lb 168 lb 3 oz BMI 30.9 30.7 30.7 BP 125/80 H 144/83 H 130/77 H Blood Pressure Location Lt brachial Lt brachial Position Sitting Sitting Respiration 18 16 17 Pulse 88 78 84 Pulse Source Monitor Monitor Temp 97.9 F 98.0 F Temp Source Temporal Temporal Pulse Oximetry (%) 100 98 97 Oxygen Delivery Method room air room air Intake Visit Reasons: B12 inject Chief Complaint: Allergies prednisone Adverse Reaction (Severe, Verified 01/23/25 15:21) Hives Have you fallen in the past year?: No Office Meds cyanocobalamin (vitamin B-12) 1,000 mcg/mL injection solution Performing Provider: Pepe Ruiz MD Performing Location: [facility] Administered by: Dorota Carlson on 01/30/25 14:13 Dose Route Admin Location Dispensed Lot Number Expiration Date Pack age NDC 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 She has fatigue. Her last B12 injection was of benefit for fatigue. The patient is awake and alert. B12 1000mcg IM was administered today. There were no complications. Assessment and Plan Assessment and Plan (1) Fatigue: Status: Chronic Qualifiers: Fatigue type: chronic, unspecified Qualified Code(s): R53.82 - Chronic fatigue, unspecified Orders: Orders Vitamin B12 Today R53.82 - Chronic fatigue, unspecified Clinical Quality Measures Falls Risk Screening/Assistive Devices Have you fallen in the past year?: No 01/30/252142 <Electronically signed by Pepe hernandez MD> Date _ Pepe Ruiz MD Cosigner Signature: Date (if applicable) CC: ~ [facility] Work Phone: 1(382) 399-656709-22-2025 Progress note Author Szui Appiah [facility] Note Date/Time January 23, 2025 3:42pm [facility] [address] [place], [place] [address] [address] [place] [address] OFFICE VISIT Date of Service: 01/23/25 MR#: [id number] Acct: [id number] Name: LACY ALVARADO Rep #: [id number] : 1950 Provider: SYDNEY Appiah Age/Sex: 74/F Location: [facility] Status: Signed HPI HPI History of Present Illness Details: Lacy Alvarado is a 74-year-old female who presents to office today for cardiovascular follow-up visit. Patient has a history of hypertension, hyperlipidemia, obesity, coronary artery disease status post previous angioplasty and stenting in 2017 and CABG x 4 in December 2022. In September 2018, patient underwent cardiac catheterization that demonstrated normal left main coronary artery, LAD with mild proximal disease and distal 60% stenosis, left circumflex artery with ostial 50% stenosis and distal 50% stenosis in the posterior lateral branch with a 60% stenosis. Medical therapy was recommended at that time. In January 2022, patient underwent stress testing without any evidence of ischemia. Patient presented [facility] December 2022 with chest pain, echocardiogram demonstrated ejection fraction of 65%. She ultimately underwent heart catheterization 12/19/2022 that showed high-grade lesion involving the calcified ostium of the circumflex artery, the stent in the LAD is patent, a lesion in thediagonal as well as mid in-stent restenosis around 50% and a calcified eccentriclesion of the RCA. Patient was referred for CT surgery. Patient underwent CABGx [address] Rose at [facility] 01/01/2023 with preston to the LAD, reverse SVG to the obtuse marginal branch, reverse SVG to the first diagonal artery, and reverse SVG to the posterior descending branch of the RCA. Her postoperative course was uncomplicated and she was discharged to [facility] transitional care unit on postop day 10. Patient underwent echocardiogram 11/16/2023 which demonstrated ejection fraction of 65%, no regional wall motion abnormalities and mild valve disease. Patient presented to the emergency department 09/16/2024 with concerns of left parasternal and left chest pressure with associated nausea and palpitations thatgradually worsened throughout the day and is worse with deep breathing. She also noted increased lower extremity edema. Lab work was significant for anemiawith a hemoglobin of 8.6. BNP was normal for her age at 239 and high sensitive troponin was 8 and decreased to 7 2 hours later. Patient was discharged home from the emergency department. From a cardiac standpoint, the patient is doing well. She denies any palpitations, chest pain, pressure or heaviness. She does acknowledge occasionalSOB with exertion and at rest. She states this is nothing new or worsening. She denies Orthopnea, and PND. She does not have bleeding issues; no blood in urine,stool, or nosebleeds. She does acknowledge fatigue. She denies myalgias, or claudication. She does not have edema, or sudden weight gain. She denies lightheadedness, dizziness, syncopal or near syncopal episodes, and headaches. 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 Is patient in pain?: No Allergies prednisone Adverse Reaction (Severe, Verified 01/23/25 15:21) Hives Medications ?Medication ?Instructions ?Recorded ?Confirmed ?Type multivitamin 1 tab PO DAILY vitamin 05/2001/23/25 History blood-glucose meter (True Metrix #1 ea 02/03/20 Rx Air Glucose Meter kit) calcium citrate 200 mg PO DAILY supplement 0 05/21/20 01/23/25 History disability placard #1 ea 06/27/20 01/23/25 Rx aspirin 81 mg tablet,delayed 81 mg PO DAILY heart 08/0201/23/25 History release (Adult Low Dose Aspirin) blood sugar diagnostic (True #100 ea 06/17/23 01/23/25 Rx Metrix Glucose Test Strip) lancets 33 gauge #100 ea 06/17/23 01/23/25 Rx Handicap Placard #1 ea 01/07/24 01/23/25 Rx denosumab 60 mg/mL subcutaneous 60 mg subcut [id number] bone health 01/19/24 01/23/25 Rx syringe (Prolia) #1 mL gabapentin 300 mg capsule 300 mg PO QHS #30 caps 02/1301/23/25 Rx metoprolol tartrate 25 mg tablet 25 mg PO QDAY heart # 90 tabs 04/19/24 01/23/25 Rx hydrocodone-acetaminophen 5-325mg 1 tab PO Q6H PRN PRN Pain 3 days 07/14/24 01/23/25 Rx 5mg-325mg #10 TABLETS hydroxychloroquine 200 mg tablet See Rx Instructions . Route 09/21/24 01/23/25 Rx .COMPLEX immunosuppressant #180 tabs sitagliptin phosphate 100 mg See Rx Instructions .Rout e 09/21/24 01/23/25 Rx tablet (Januvia) .COMPLEX diabetes #90 tabs divalproex 500 mg tablet,delayed 500 mg .Route .COMPLE X seizures 11/07/24 01/23/25 Rx release (Depakote) #90 tabs pantoprazole 40 mg tablet,delayed 40 mg PO QDAY #90 ta bs 01/19/25 01/23/25 Rx release polyethylene glycol 3350 17 17 g PO BID constipation # 850 grams 01/19/25 01/23/25 Rx gram/dose oral powder (Miralax) atorvastatin 80 mg tablet 80 mg PO QHS cholesterol #90 tabs 01/23/25 01/23/25 Rx evolocumab 140 mg/mL subcutaneous 140 mg subcut Q2W #2 mL 01/23/25 01/23/25 Rx pen injector (Repatha SureClick) furosemide 40 mg tablet (Lasix) 20 mg PO DAILY 5 01/23/25 History Ejection fraction %: 65 Have you fallen in the past year?: No PFSH Medical History Keloid scar of skin Vertigo [...] FOOT HEEL SPUR Atherosclerotic heart diseas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 angina pectoris Rheumatoid arthritis Diabetes type 2, controlled Hives Seasonal allergies Hyperlipidemia Chronic diastolic CHF (congestive heart failure) Surgical History History of coronary artery bypass graft History of cardiac catheterization History of left heart catheterization (09/20/18) History of coronary artery stent placement (03/22/18) History of carpal tunnel surgery History of section H/O: hysterectomy Family History Grandmother Alcoholism Cancer Arthritis Mother Alcoholism Diabetes blood clots Hypertension Grandfather Heart disease Sister Thyroid disorder Other Breast cancer Cervical cancer Colon cancer Social History household members: none housing: apartment Smoking Status: Never smoker second hand exposure: No alcohol intake: current alcohol intake frequency: holidays/special occasions only substance use type: does not use what type of physical activity do you participate in: none ROS Const Const: Positive for fatigue; Negative for weakness, headache(s) or frequent falls Eyes Eyes: Negative for blurry vision ENT ENT: Negative for headache(s), dizziness or Nosebleed/epistaxis Cardio Chest Pain: No Palpitations: No Edema: None Muscle aches with walking: None Resp Respiratory: Positive for SOB with activity (occasional); Negative for SOB at rest or SOB orthopnea\\SOB lying down GI GI: Positive for nausea; Negative vomiting, heartburn, bright, red blood in stools or black,tarry stools : Negative for hematuria Neuro Neuro: Negative for dizziness, lightheadedness, near syncope, syncope, frequent falls, headache(s), weakness or blurry vision Endo Endo: Positive for fatigue Cardiology Exam Const Appearance: cooperative, comfortable, no acute distress and well developed; Negative diaphoretic or ill appearing Nutritional Appearance: obese Orientation: alert and oriented x3 Ambulating without assistive device Head Head: normal to inspection, normocephalic and atraumatic Ears: hearing grossly normal bilaterally Nose: external nose normal and Negative epistaxis Face and Sinus: face symmetric Eyes General: appearance normal, both eyes and all related structures Eyelids: eyelids normal Conjunctivae: conjunctivae normal; Negative scleral icterus EOM: EOM intact bilaterally Neck Neck: no JVD Carotids: normal carotid upstroke; Negative bruit Neck Mass: Negative Neck mass Chest Chest inspection: normal respiratory effort and other (keloid scar to her midline incision); Negative respiratory distress, audible wheezes or tachypneic Auscultation: Bilateral: Clear to Auscultation Cardio Rate: regular rate Rhythm: regular rhythm Heart sounds: S1 normal and S2 normal; Negative rub, gallop or murmur GI GI: obese Neuro General: patient alert, patient awake, patient oriented x3 and moves all extremities Skin Skin: no rashes or lesions noted Central chest scar from CABG raised, normal temperature, nonerythematous, nonseeping. Extremities Pulses: Normal: Right Posterior Tibial Pulse, Left Posterior Tibial Pulse, RightRadial Pulse and Left Radial Pulse Psych Psychological: normal affect Supplemental Info Supplemental Information Stress test 11/14/2024: Conclusion: Normal pharmacologic myocardial perfusion stress test. Preserved ejection fraction. Echocardiogram 11/16/23 Interpretation Summary The estimated ejection fraction is 65 %. Unable to assess diastolic dysfunction. Echocardiogram 12/19/22 Interpretation Summary Normal LV systolic function. The estimated ejection fraction is 65 %. Mild (1+) tricuspid valve insufficiency. No significant change from prior echocardiogram Compared to prior study, there is no significant change. SIS 01/01/23 ([facility]) Interpretation Summary Left ventricle size is normal. Normal wall thickness. Normal left ventricular systolic function. Normal wall motion. Right ventricle size is normal. Normal systolic function. Tricuspid valve with moderate (2+) regurgitation. Left atrium is mildly dilated. Windsock appendage. Decreased appendage flow velocity. No left atrial appendage thrombus noted. No significant valvular abnormalitites. Exercise tolerance test/imaging study 01/03/2022 Impression: 1.? There is no evidence of significant ischemia or infarction. 2.? The gated Cardiolite study reports an LVEF of greater than 70%. CARDIAC CATHETERIZATION 09/20/2018 CORONARY ANGIOGRAPHY DOMINANCE:? Right Dominant LEFT HEART ASSESSMENT Left Ventricular Ejection Fraction: by LV Gram 65 % Normal LV wall motion Normal Left Ventricular systolic function LEFT MAIN: Angiographically normal LEFT ANTERIOR DESCENDING ARTERY: MID LAD: Previously placed stent is patent DISTAL LAD: Diffusely diseased up to 60 % CIRCUMFLEX ARTERY: OSTIAL CIRC: 50 % Stenosis MID CIRC: 50 % Stenosis RIGHT CORONARY ARTERY: RT PLV: 60 % Stenosis CONCLUSIONS Previously placed stents are patent.? There is residual ostial circumflex arterydisease and ostial posterolateral vessel disease which is unchanged compared to the previous catheterization from 8 months ago.? Besides stress test was noted to be normal in July Head/Neck CTA 01/02/22 IMPRESSION: Calcific plaque at the origin of the right internal carotid artery causing less than 50% stenosis. Calcific plaque and occlusion of the left internal carotid artery causing between 50 and 69% stenosis. Heterogeneous enlargement of the thyroid gland worse in the left lobe of the thyroid gland with the hypodense nodules and isthmus. Labs: HDL Cholesterol, (40-) 58 mg/dL Cholesterol, (<=200) 242 mg/dL H Triglycerides, (-199) 111 mg/dL Diagnostics: Electrocardiogram Echocardiogram Stress Test Stress Test Nuclear Medicine Cardiac Catheterization Cardiac Intervention Chest X-Ray Chest CTA Abdomen Ultrasound Abdomen/Pelvis CT Venous Doppler Study Pulmonary: Pulmonary Exercise Test Past Visits: Cardiology Visit Today Assessment and Plan Assessment and Plan (1) History of coronary artery bypass graft: Status: Chronic Comment: 01/01/2023 at [facility]: bypass surgery x4 with an PRESTON to LAD, reverse SVG to obtuse marginal branch, reverse SVG to first diagonal artery, and reverse SVG to posterior descending branch of the RCA; Plan: Patient has a history of coronary artery disease with bypass surgery in 2022. Her stress test on 11/14/2024 was negative for ischemia. She appears stable at this time, denies any recent symptoms or events. She will continue aspirin 81 mg daily, and atorvastatin 80 mg daily. She will be asked to start Repatha 140 mg every 2 weeks. She will continue with aggressive risk factor and lifestyle modifications, as well as monitoring for any concerning symptoms. (2) Chronic diastolic CHF (congestive heart failure): Status: Chronic Plan: Patient has a history of congestive heart failure. Her echocardiogram on 11/16/2023 demonstrated ejection fraction of 65%. She appears stable at this time, denies any recent symptoms or events. She will continue with her current medical therapy, along with monitoring for any concerning symptoms. (3) Essential (primary) hypertension: Status: Chronic Plan: Patient has a history of hypertension. Her blood pressure is well-controlled atthis time?125/80. She will continue with her current medical therapy, along with monitoring her blood pressures at home. She will notify our office any persistently elevated or low blood pressure readings. (4) Hyperlipidemia: Status: Chronic Qualifiers: Hyperlipidemia type: pure hypercholesterolemia Qualified Code(s): E78.00 - Pure hypercholesterolemia, unspecified; E78.0 - Pure hypercholesterolemia Plan: Patient has a history of hyperlipidemia. Her most recent lipid panel from 01/19/2025: Cholesterol 242, HDL 58, LDL 162, triglycerides 111. Would like to see LDL less than 70. At this time she will continue atorvastatin 80 mg daily. She will be asked to start Repatha 140 mg every 2 weeks. Will repeat a fasting lipid and liver profile in 3 months to reassess this. Depending on results, further recommendations will be made. She will also continue with aggressive risk factor and lifestyle modifications. Orders: Orders Lipid Profile 3 Months Suzi Appiah NP, APPRAISER AUDITOR-C E78.5 - Hyperlipidemia, unspecified Liver Profile 3 Months Suzi Appiah NP, APPRAISER AUDITOR-C E78.0 - Pure hypercholesterolemia,E78.00 - Pure hypercholesterolemia, unspecified Medications: New atorvastatin 80 mg PO QHS 90 tabs 3RF cholesterol Suzi Appiah NP, APPRAISER AUDITOR-C evolocumab (Repatha SureClick) 140 mg subcut Q2W 2 mL 6RF Suzi Appiah NP, APPRAISER AUDITOR-C Changed From furosemide (Lasix) 40 mg PO DAILY 60 tabs 0RF To furosemide (Lasix) [address] Maurilio Bradford MD Discontinued rosuvastatin Discontinued Reason: Order Completed 40 mg PO DAILY Plan Details Additional Comments: Patient will follow-up in 6 months, or sooner if needed. Thank you for allowing me to participate in the care of your patient. Please donot hesitate to call if any issues arise. This note was generated using a voice recognition system and there may be incorrect words, spelling, or punctuation that were not noted when reviewing theoffice note prior to saving. Portions of this documentation were copied and pasted from previous office visitnotes to provide cohesive continuity of the history. The note has been reviewed,edited, and updated, as necessary. Follow Up: 6 Months (APPRAISER AUDITOR/PA) Coding Level of Care Code Off vis,est,level 4 Diagnoses History of coronary artery bypass graft Z95.1 Chronic diastolic CHF (congestive heart failure) I50.32 Essential (primary) hypertension I10 Pure hypercholesterolemia E78.00; E78.0 Hyperlipidemia type: pure hypercholesterolemia Coding Level of Care Code Off vis,est,level 4 Diagnoses History of coronary artery bypass graft Z95.1 Chronic diastolic CHF (congestive heart failure) I50.32 Essential (primary) hypertension I10 Pure hypercholesterolemia E78.00; E78.0 Hyperlipidemia type: pure hypercholesterolemia Clinical Quality Measures Falls Risk Screening/Assistive Devices Have you fallen in the past year?: No Cardiac Ejection fraction %: 65 01/23/25 1554 <Electronically signed by Suzi GRIMES> Date _ Suzi Sanchezignhugh Signature: Date (if applicable) CC: Dr. Mayda Gracia MD ~ [facility] Work Phone: 1(403) 479-555509-20-2025 Radiology Diagnostic study [facility]09-18-2025 Progress note Author Shruthi Costa [facility] Note Date/Time January 19, 2025 3:13pm [facility] [address] [place] [address] OFFICE VISIT Date of Service: 01/19/25 MR#: [id number] Acct: [id number] Name: LACY ALVARADO Rep #: [id number] : 1950 Provider: SYDNEY Costa Age/Sex: 74/F Location: [facility] Status: Signed Intake Vital Signs 11/16/24 11:04 01/19/25 14:33 Height 5 ft 2 in 5 ft 2 in Weight: 168 lb 8 oz 167 lb 8 oz BMI 30.8 30.6 BP 120/68 154/82 H Blood Pressure Location Lt brachial Position Sitting Respiration 16 16 Pulse 97 84 Pulse Source Monitor Temp 96.9 F L 97.8 F Temp Source Temporal Temporal Pulse Oximetry (%) 99 96 Oxygen Delivery Method room air room air Intake Visit Reasons: Stomach Pain Chief Complaint: abdominal pain Car Deliverer Required: No Accompanied by: Self Is patient in pain?: Yes (stomach pain) Allergies prednisone Adverse Reaction (Severe, Verified 01/19/25 14:29) Hives Medications ?Medication ?Instructions ?Recorded ?Confirmed ?Type multivitamin 1 tab PO DAILY vitamin 05/2001/19/25 History blood-glucose meter (True Metrix #1 ea 02/03/20 Rx Air Glucose Meter kit) calcium citrate 200 mg PO DAILY supplement 0 05/21/20 01/19/25 History disability placard #1 ea 06/27/20 01/19/25 Rx aspirin 81 mg tablet,delayed 81 mg PO DAILY heart 08/0201/19/25 History release (Adult Low Dose Aspirin) blood sugar diagnostic (True #100 ea 06/17/23 01/19/25 Rx Metrix Glucose Test Strip) lancets 33 gauge #100 ea 06/17/23 01/19/25 Rx Handicap Placard #1 ea 01/07/24 01/19/25 Rx denosumab 60 mg/mL subcutaneous 60 mg subcut [id number] bone health 01/19/24 01/19/25 Rx syringe (Prolia) #1 mL gabapentin 300 mg capsule 300 mg PO QHS #30 caps 02/1301/19/25 Rx metoprolol tartrate 25 mg tablet 25 mg PO QDAY heart # 90 tabs 04/19/24 01/19/25 Rx hydrocodone-acetaminophen 5-325mg 1 tab PO Q6H PRN PRN Pain 3 days 07/14/24 01/19/25 Rx 5mg-325mg #10 TABLETS hydroxychloroquine 200 mg tablet See Rx Instructions . Route 09/21/24 01/19/25 Rx .COMPLEX immunosuppressant #180 tabs sitagliptin phosphate 100 mg See Rx Instructions .Rout e 09/21/24 01/19/25 Rx tablet (Januvia) .COMPLEX diabetes #90 tabs atorvastatin 80 mg tablet 80 mg PO QHS cholesterol 01/19/25 History divalproex 500 mg tablet,delayed 500 mg .Route .COMPLE X seizures 11/07/24 01/19/25 Rx release (Depakote) #90 tabs rosuvastatin 40 mg tablet 40 mg PO DAILY 11/13/2401/02 History furosemide 40 mg tablet (Lasix) 40 mg PO DAILY #60 tab s 11/14/24 01/19/25 Rx pantoprazole 40 mg tablet,delayed 40 mg PO QDAY #90 ta bs 01/19/25 01/19/25 Rx release polyethylene glycol 3350 17 17 g PO BID constipation # 850 grams 01/19/25 01/19/25 Rx gram/dose oral powder (Miralax) Have you fallen in the past year?: No Nurse's Note: She has a burning sensation in her stomach when she eats so she has been trying not to eat. As a result she has lost over 15lbs in the few months. She has stomach pain all of the time and her bowels have never been "normal". Has struggled with contipation most of her life. [facility] Medical History Keloid scar of skin Vertigo [...] FOOT HEEL SPUR Atherosclerotic heart diseas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 angina pectoris Rheumatoid arthritis Diabetes type 2, controlled Hives Seasonal allergies Hyperlipidemia Chronic diastolic CHF (congestive heart failure) Surgical History History of coronary artery bypass graft History of cardiac catheterization History of left heart catheterization (09/20/18) History of coronary artery stent placement (03/22/18) History of carpal tunnel surgery History of section H/O: hysterectomy Family History Grandmother Alcoholism Cancer Arthritis Mother Alcoholism Diabetes blood clots Hypertension Grandfather Heart disease Sister Thyroid disorder Other Breast cancer Cervical cancer Colon cancer Social History household members: none housing: apartment Smoking Status: Never smoker second hand exposure: No alcohol intake: current alcohol intake frequency: holidays/special occasions only substance use type: does not use what type of physical activity do you participate in: none HPI HPI Chief Complaint: abdominal pain Details: EGD 09/30/2023 - Normal esophagus. - Erythematous mucosa in the gastric body. Biopsied. - Erythematous duodenopathy. Biopsied. COLON 09/30/2023 - Two 5 mm polyps in the sigmoid colon and at the hepatic flexure, removed with a jumbo cold forceps. Resected and retrieved. - Congested mucosa in the cecum. Biopsied. - The examination was otherwise normal on direct and retroflexion views. - upper abdominal pain x1 week - any PO intake causes increased pain and burning - nausea w/o emesis - negative for H. pylori and celiac sprue - c/o fatigue - had a BM yesterday, not great - can go up to a week without a BM - takes Mag citrate PRN The patient is a 74-year-old female presenting with abdominal pain. She reports that her stomach has been bothering her since the past weekend, with the pain starting suddenly without any identifiable causing event. The abdominal pain is located mostly in the upper middle region and spans across the upper belly. She describes the pain as burning, cramping, and associated with bloating and gas. The pain has severely affected her, especially during the past week, making her consider a visit to the emergency room over the weekend, although she refrained,knowing this appointment was scheduled. ROS Const Constitutional: Positive for fatigue; No fever(s) or weight change ENT ENT: No difficulty swallowing Gastro GI: Positive for bloating and constipation; No abdominal pain, belching, change in bowel habits, change in stool character, coffee ground emesis, cramping, diarrhea, heartburn, difficulty swallowing, feeling full early, excessive flatus, incontinent of stools, Vomiting blood/hematemesis, Blood in stool, loose stools, Black,tarry stools, nausea/dyspepsia, pain with swallowing, vomiting or other Musc Musculoskeletal: Positive for back pain, muscle cramps and Arthritis; No joint pain Skin Skin: No yellowing of the eye or itchy eyes Neuro Neurology: Positive for dizziness and seizures Psych Psychiatric: No anxiety and No depression Endo Endocrine: Positive for fatigue; No weight change Aller/Imm Allergy/Immunologic: No itchy eyes True/Lymp Hematologic/Lymphatic: No easy bleeding or easy bruising ROS Narrative - Gastrointestinal: Reports abdominal pain, bloating, nausea, reduced appetite, constipation - Constitutional: Reports fatigue, weight changes, and chills with alternating hot flashes - Cardiovascular: Denies heartburn; reports occasional pain due to previous heart surgery - Hematologic: Denies any black or red stools Exam Const General: cooperative, healthy appearing, no acute distress and well developed Nutritional Appearance: well nourished and obese Orientation: alert and oriented x3 [facility] Head: normocephalic Ears: hearing grossly normal bilaterally Mouth: moist mucous membranes Teeth and gingiva: dentition normal Eyes Conjunctivae: conjunctivae normal Sclera: sclerae normal Neck Neck: normal visual inspection, full ROM and trachea midline Resp Effort & Inspection: normal respiratory effort, able to speak in complete sentences and symmetric chest movement GI Inspection: normal to inspection Auscultation: normal bowel sounds Palpation: soft and no hepatosplenomegaly Rectal Exam: deferred Other: mild epigastric tenderness with palpation Neuro General: patient alert and patient oriented x3 Cranial Nerves: other (CN's grossly intact, non-focal exam) Cognition: normal cognition Speech: speech normal Gait: normal gait Psych Appearance: grossly normal and well kempt Affect: normal affect Attitude: cooperative Thought Process: normal Assessment and Plan Assessment and Plan (1) Anemia: Status: Acute Qualifiers: Anemia type: unspecified type Qualified Code(s): D64.9 - Anemia, unspecified (2) Nausea: Status: Acute (3) Epigastric pain: Status: Acute (4) Constipation: Status: Acute Orders: Orders CBC W/Diff, Automated Today D64.9 - Anemia, unspecified, R10.13 - Epigastric pain, R11.0 - Nausea, R53.83 - Other fatigue Vitamin B12 Today D64.9 - Anemia, unspecified, R10.13 - Epigastric pain, R11.0 - Nausea Abdomen Single View Today K59.00 - Constipation, unspecified, R10.13 - Epigastric pain, R11.0 - Nausea Medications: New pantoprazole 40 mg PO QDAY 90 tabs 1RF polyethylene glycol 3350 (Miralax) 17 grams PO BID 850 grams 3RF constipation Discontinued ibuprofen Discontinued Reason: Pt no longer taking 600 mg PO Q6H PRN PRN 20 TABLETS 0RF pain Plan 74-year-old female with a history of diabetes mellitus, hyperlipidemia, and previous heart surgery presenting with abdominal pain and fatigue. The abdominaldiscomfort, characterized as burning and cramping, started suddenly and worsens with food intake. There is also associated constipation with decreased bowel movement frequency exacerbating the discomfort. I have ordered labs and KUB to be completed today. She will start pantoprazole 40mg daily and Miralax BID. Patient Instructions: Miralax BID Labs now KUB now Pantoprazole once daily Follow-up in 1 week Coding Level of Care Code Off vis,est,level 3 Diagnoses Anemia, unspecified type D64.9 Anemia type: unspecified type Nausea R11.0 Epigastric pain R10.13 Constipation K59.00 Clinical Quality Measures Falls Risk Screening/Assistive Devices Have you fallen in the past year?: No Smoking Screening Smoking Status: Never smoker 01/19/25 2244 <Electronically signed by Shruthi GRIMES> Date _ Shruthi GRIMES Cosigner Signature: Date (if applicable) CC: ~ [facility] Work Phone: 1(626) 562-963207-14-2025 [facility]07-14-2025 Progress note Author Maurilio Bradford [facility] Note Date/Time November 14, 2024 12:2 8pm [facility] Medical Records Department [address] [place] [address] Progress Note - Hospitalist 11/14/24 1008 MR#: [id number] Acct: [id number] Name: LACY ALVARADO Rep #:[id number] 1 : 1950 73 From: Maurilio Bradford MD PCP: Dr. Mayda Garcia MD Status:A DM DELFIN Location: [place] [address] Reason for Visit Chief Complaint: chest pain [...] Neut % (Auto) 55.5, Lymph % (Auto) 35.9,[place] % (Auto) 6.3, Eos % (Auto) 1.7, [...] 230 H, LDL Cholesterol, Calc 162, VLDL [id number], HDL Cholesterol 52, Cholesterol/HDL Ratio 4.47 Micro: Microbiology 11/13/24 22:25 Mucosa - Nose Respiratory Panel (PCR) - Final Radiography Diagnostic Testing: Radiology Impression Chest X-Ray 11/13/24 17:17 IMPRESSION: Mildly prominent interstitial markings could be the result of hypoventilatory change, pulmonary edema, or atypical infection. Reading Location: [id number] Rhythm Strip Rhythm Strip: Sinus Rhythm Rate: [...] is a 73-year-old female who presented to [facility] ED on 11/13/2024 with chest pain. 1. Chest pain ? Patient was placed on a monitored bed MD ruled out with serial cardiac enzymes. Patient [...] Subcu Lovenox Charges/Coding Visit Charges Inpatient E&M: 36016 Subs Hosp L2 11/14/24 1228 <Electronically signed by Maurilio Bradford MD> Cosigner Signature (if applicable): CC: ~ Signed [facility] Work Phone: 1(516) 730-944907-14-2025 Hospital Discharge instructionsAdditional Instructions [facility]: [facility] Phone: 1(495) 521-524707-14-2025 Consult note Author Aleksandr Salinas [facility] Note Date/Time November 14, 2024 8:18 am [facility] Medical Records Department [address] [place] [address] Consultation - Cardiology 11/14/24 0801 MR#: [id number] Acct: [id number] Name: LACY ALVARADO Rep #:[id number] 1 : 1950 73 From: Aleksandr Salinas MD PCP: Dr. 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 This is managed through the primary service. (3) History of coronary artery bypass graft: PLAN: Patient status post remote PRESTON to the LAD, vein graft to the OM branch ofthe circumflex vein graft to diagonal branch of the LAD and vein graft to the PDA of the right coronary artery December [address] [facility] [address] Rose. The patient spent 10 [...] was just much more intense yesterday after judaism when she was sitting at home. Patient has been evaluated in September in the emergency department with negative enzymes. She has been evaluated in the [facility] office and felt thiswas related to her surgical incision site and PRESTON harvest. Patient's initial enzymes in the emergency [...] was done December 2022. She received a PRESTON to the LAD vein graft to the [...] ibuprofen, and hydroxychloroquine for her rheumatoid arthritis. [facility] Medical History Keloid scar of skin Vertigo [...] FOOT HEEL SPUR Atherosclerotic heart diseas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 Tradjenta 5mg daily. * Nutrition - MVI daily. * GERD - Pantoprazole 40MG daily, TUMS 500mg daily. 01/12/23 8588 <Electronically signed by Robbin Carlos MD> Cosigner Signature (if applicable): CC: Dr. Mayda Garcia MD; Dr. Robbin Carlos MD~ Signed [facility] Work Phone: [phone]) 578-492009-10-2023 Miscellaneous Notes* Care Coordination - Unknown Case Management - 01/11/2023 2:45 PM EDT Patient Choice Patient Name: LACY ALVARADO Date of : 1950 * Care Plan - Anna Escalera RN - 01/11/2023 11:12 AM EDT The patient is Moderately Stable - Low risk of patient condition declining or worsening The patient's goals for the shift include transferring to [facility]. [facility] at 1115 am. All questions were answered, IV removed, monitor removed, and belongings packed into her personal box. Patient understands the importance of continuing all medication. All goals met before discharge with regard to her care plan. * Care Coordination - Lupe Carias RN - 01/11/2023 9:56 AM EDT Weekend task and electronic chart reviewed. DCP-[facility]. Per Shruthi Marshall@ [facility], "we have auth and can accept patient today". Discharge orders sent via Careport to SNF. Transportation arranged with [employer] for 2 pm pick-up. 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 Tra nsportation form giving to ammunition assembly ii laborer. * Care Coordination - Alaina Truong RN - 01/10/2023 2:11 PM EDT Images from the original note were not included. CARE COORDINATION DAILY NOTE/UPDATE Medical Plan: sp CABG x 3 POD # 9. Discharge Plan: [facility] Discharge Barriers: pending medical clearance Received a message from Anna COLLINS "I heard from [facility] "okay to admit." Stated by Shurthi Marshall if you have any questions." Call placed to Shruthi Marshall to confirm [...] RN 01/02/2023 2:07 PM 01/06/2023 Shruthi Weaver, MARKETING TECHNOLOGY COORDINATOR - SERENA 01/01/2023 11:16 AM 01/06/2023 Azam Rose MD 01/01/2023 5:45 AM Length of Stay (Days): 9 GMLOS: 5.9 * Care Coordination - Delores Mullins RN - 01/09/2023 10:21 AM EDT Images from the original note were not included. Care Management Progress Note Patient remains on HLU sp CABG x 3 POD # 8. [facility] can accept, spoke with [...] 2:07 PM 01/06/2023 Shruthi Weaver APRN - TREE TAPPING LABORER 01/01/2023 11:16 AM 01/06/2023 Azam Rose MD 01/01/2023 5:45 AM Length of Stay (Days): 8 GMLOS: 5.9 * Care Coordination - Good Jang - 01/09/2023 8:15 AM EDT [facility] per TCC request. Referral placed to [facility] via fax # [phone] to Shauna in Admissions Await review and response regarding ability to accept. TCC notified. * Care Coordination - Good Jang - 01/08/2023 3:06 PM EDT Referral placed to SNF- [facility] via Careport per TCC request. Await review and response regarding ability to accept. TCC notified. * Care Coordination - Delores Mullins RN - 01/08/2023 2:36 PM EDT Spoke with patient at bedside, niece Bhupinder over the phone to discuss therapy recommendations. Agreeable to SNF, [facility] and [address] [place] [address] Healthy. * Care Coordination - Delores Mullins RN - 01/07/2023 2:18 PM EDT Images from the original note were not included. Care Management Progress Note Patient remains on HLU s/p CABG x 3 POD # 6. PT continuing to recommend IPR vs SNF. [facility] unable to accept patient, FOC, patient and niece declining SNF, discharge plan is home with [facility]. TCC to follow for updated therapy recs [...] 2:07 PM 01/06/2023 Shruthi Weaver APRN - TREE TAPPING LABORER 01/01/2023 11:16 AM 01/06/2023 Azam Rose MD 01/01/2023 5:45 AM Length of Stay (Days): 6 GMLOS: 5.9 * Care Coordination - Delores Mullins RN - 01/06/2023 1:01 PM EDT [facility] unable to accept patient, too functional. Updated patient at bedside and alyssa Holloway ([facility]) over the phone. Declined SNF at this time, would like to plan discharge home with HHC including PT/OT/SN/NURSING EDUCATION CONSULTANT if possible. Will updated [facility] P[facility], CTS APPRAISER AUDITOR aware. * Care Coordination - Delores Mullins RN - 01/06/2023 8:10 AM EDT Images from the original note were not included. Care Management Progress Note Patient remains on HLU s/p CABG x 3 POD # 5. VSS, on RA, in NSR on tele, BB increased, holding diuretics, insulin per endocrine, and PT recommending IPR (01/04). Patient and family agreeable to [facility], left message on therapy line requesting see [...] Mullins RN 01/02/2023 2:07 PM 01/06/2023 Shruthi WeaverMARIAJOSEN - TREE TAPPING LABORER 01/01/2023 11:16 AM 01/06/2023 Azam Rose MD [...] Yo RN - 01/02/2023 3:39 PM EDT Business Development Recruiter following case for Discharge Needs. * Care Coordination - Delores Mullins RN - 01/02/2023 2:07 PM EDT Care Managment Initial Assessment Date: 01/02/2023 Patient Name: Lacy Alvarado : 1950 Patient Information Source of Information: Patient Cognition/Language: WFL - Within Functional Limits Permission given to speak with patient desk representative/caregiver as indicated: Yes Confirmation of Payer [...] Living Prescription Coverage: Yes Pharmacy Used: [facility] Medication Management: Independent Transportation/Shopping: Assistance Provider [...] intraoperative transesophageal echocardiography Surgeon: Azam Rose MD Shelter Monitor(s): [] Thomas Silva [x] Raymundo Marie [x] [...] Milian. Patient was admitted on 12/18/22 to [facility] with CP. She had a history [...] with closure. The sternum was reapproximated with [id number] wires and the overlying tissues were closed in multiple layers. The patient was transported to the intensive care unit in serious but stable condition. documented in this [facility]09-10-2023 Note* Care Coordination - Unknown Case Management - 01/11/2023 2:45 PM EDT Patient Choice Patient Name: LACY ALVARADO Date of : 1950 [id number] Plan of care note* Care Plan - Anna Escalera RN - 01/11/2023 11:12 AM EDT The patient is Moderately Stable - Low risk of patient condition declining or worsening The patient's goals for the shift include transferring to [facility]. [facility]ils[facility] at 1115 am. All questions were answered, IV removed, monitor removed, and belongings packed into her personal box. Patient understands the importance of continuing all medication. All goals met before discharge with regard to her care plan. [id number] Note* Care Coordination - Lupe Carias RN - 01/11/2023 9:56 AM EDT Weekend task and electronic chart reviewed. DCP-[facility]. Per Shruthi Marshall@ [facility], "we have auth and can accept patient today". Discharge orders sent via Careport to SNF. Transportation arranged with [employer] for 2 pm pick-up. 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 Tra nsportation form giving to ammunition assembly ii laborer. [facility] [id number] History of Present illness Narrative* GORDO Felix CNP - 01/11/2023 8:00 AM EDT Discussed with TCC and social work; patient obtained auth - Discharge today to [facility] * GORDO Felix CNP - 01/11/2023 6:31 AM EDT Images from the original note were not included. Cardiothoracic Surgery/CCM Progress Note PATIENT NAME: Lacy Alvarado DATE: 01/11/23 HPI: 72 y.o. female was referred by Dr. Bhanu Milian. Patient was admitted on 12/18/22 to [facility] with CP history of CHF, CAD, [...] - ?auth obtained. Will reach out to vocational evaluator TCC/Social work. Pain has been ready from [...] EF: normal 01/01/23 Blood Conservation: Transfused postoperatively Business Segment Manager: [facility] * GORDO Felix CNP - 01/10/2023 6:03 AM EDT Images from the original note were not included. Cardiothoracic Surgery/[facility] Progress Note PATIENT NAME: Lacy Alvarado DATE: 01/10/23 HPI: 72 y.o. female was referred by Dr. Bhanu Milian. Patient was admitted on 12/18/22 to [facility] with CP history of CHF, CAD, [...] here and onto the next place (pending [facility]) Review of Systems Constitutional: [...] DVT prophy:TEDs, SCDs, and Heparin SubQ Disposition: [facility] pending precert. Likely thu or thursday Central Line: []Yes [x] No Arterial Line: []Yes [x] No Araya: []Yes [x] No Restraints: []Yes [x] No Patient discussed and plan of day developed from multidisciplinary rounds between Cardiothoracic Surgery (Cardiothoracic Surgeon, SONYA) and Critical Care Attending Cardiac Core Medications: ASA, Plavix, Statin, and BB EF: normal 01/01/23 Blood Conservation: Transfused postoperatively Business Segment Manager: [facility] * Samaria Li PTA - 01/09/2023 1:09 PM EDT Physical Therapy Facility/Department: [facility] Physical Therapy Daily Treatment Note NAME: Lacy Alvarado : 1950 Date of Service: 01/09/2023 Discharge Recommendations: IP Rehab, [facility] Facility PT Equipment Recommendations Equipment Needed: No [...] and strength to complete stairs safely with [place] to avoid a fall. Performance Deficits/Impairments: Decreased functional mobility , Decreased endurance, Increased pain, Decreased ADL status, Decreased strength, Decreased posture, Decreased balance Patient Diagnosis(es): The primary encounter diagnosis was CAD in [place] artery. A diagnosis of Coronary artery disease involving coronary bypass graft, unspecified whether angina present, unspecified whether [place]is or transplanted heart was also pertinent to this visit. has a past medical history of CHF (congestive heart failure) (CMS/HCC) ([facility]), Diabetes mellitus ([facility]), GERD (gastroesophageal reflux disease), Hyperlipidemia, Hypertension, RA (rheumatoid arthritis) ([facility]), Seizure ([facility]), Seizures ([facility]), and Sleep apnea. has a past surgical [...] / Caregiver Present: No Diagnosis: CAD in [place] artery s/p CABG on 01/01 Follows Commands: [...] Code Treatment Minutes: 30 Minutes (FA, GT) TRANSPORTATION SECURITY OFFICER wore PPE in compliance with hospital guidelines and regulation when treating this patient. Samaria Li, TRANSPORTATION SECURITY OFFICER * Kassy Tabares, MARKETING TECHNOLOGY COORDINATOR - TREE TAPPING LABORER - 01/09/2023 6:04 AM EDT Images from the original note were not included. Cardiothoracic Surgery/CCM Progress Note PATIENT NAME: Lacy Alvarado DATE: 01/09/23 HPI: 72 y.o. female was referred by Dr. Bhanu Milian. Patient was admitted on 12/18/22 to [facility] with CP history of CHF, CAD, [...] nursing. Voiding appropriately. SNF pending -->would like [facility] if able. Review of Systems Constitutional: [...] SubQ Disposition: TBD; pending discharge to hopefully [facility]. Central Line: []Yes [x] No Arterial Line: []Yes [x] No Araya: []Yes [x] No Restraints: []Yes [x] No Patient discussed and plan of day developed from multidisciplinary rounds between Cardiothoracic Surgery (Cardiothoracic Surgeon, SONYA) and Critical Care Attending Cardiac Core Medications: ASA, Statin, and BB EF: normal 8/31/23 Blood Conservation: Transfused postoperatively Business Segment Manager: [facility] * Samaria Li, TRANSPORTATION SECURITY OFFICER - 01/08/2023 10:17 AM EDT Physical Therapy Facility/Department: [facility] Physical Therapy Daily Treatment Note NAME: Lacy Alvarado : 1950 Date of Service: 01/08/2023 Discharge Recommendations: IP Rehab, [facility] Facility PT Equipment Recommendations Equipment Needed: No [...] and strength to complete stairs safely with [place] to avoid a fall. Performance Deficits/Impairments: Decreased functional mobility , Decreased endurance, Increased pain, Decreased ADL status, Decreased strength, Decreased posture, Decreased balance Treatment Diagnosis: limited mobility Decision Making: Medium Complexity Patient Diagnosis(es): The primary encounter diagnosis was CAD in che[place]is artery. A diagnosis of Coronary artery disease involving coronary bypass graft, unspecified whether angina present, unspecified whether [place]is or transplanted heart was also pertinent to this visit. has a past medical history of CHF (congestive heart failure) ([facility]/HCC) (HCC), Diabetes mellitus ([facility]), GERD (gastroesophageal reflux disease), Hyperlipidemia, Hypertension, RA (rheumatoid arthritis) ([facility]), Seizure ([facility]), Seizures ([facility]), and Sleep apnea. has a past surgical [...] / Caregiver Present: No Diagnosis: CAD in [place] artery s/p CABG on 01/01 Follows Commands: [...] Treatment Minutes: 39 Minutes (FA, GT. TP) TRANSPORTATION SECURITY OFFICER wore PPE in compliance with hospital guidelines and regulation when treating this patient. Samaria Li, TRANSPORTATION SECURITY OFFICER * Chandler Ram, GORDO - TREE TAPPING LABORER - 01/08/2023 6:04 AM EDT Images from the original note were not included. Cardiothoracic Surgery/CCM Progress Note PATIENT NAME: Lacy Alvarado DATE: 01/08/23 HPI: 72 y.o. female was referred by Dr. Bhanu Milian. Patient was admitted on 12/18/22 to [facility] with CP history of CHF, CAD, [...] Conversationsongoing with family about living arrangements at [place]. Review of Systems Constitutional: Negative for chills, [...] 8.5 MG 2.7* 2.4* CBC: Recent Labs 01/06/233301/07/23 0247 WBC 5.6 5.4 HGB 10.2* 10.3* [...] Core Medications: ASA, Statin, and BB EF: "Normal" (01/01/23) Blood Conservation: Transfused post-op. Business Segment Manager: [facility] * Talita Haque RD - [...] provided with heart healthy diet handout with [facility] RD phone number at initial assessment. Will [...] muscle mass loss Fluid Accumulation: Mild Extremities Career Education Teacher Strength: Not Performed Nutrition Assessment: Pt with PMH including HTN, DM, HLD, CHF, RA, epilepsy, GERD, LINA, prior PCI, presented to [facility] on 01/01/23 for CABG after recent admissiont to [facility] on 12/18/22 and had LHC which [...] On: Kcal/kg Weight Used for Energy Requirements: [place] (25-30 kcal/kg) Weight for Energy Calculation (kg): 50 kg Total Energy Requirements (kcals/day): 3751-4557 Weight Used for Protein Requirements: [place] (1.2-1.5 g/kg) Weight in Kg Used for [...] Ordered Anthropometric Measures: Height: 157.5 cm (5' 2") Current Body Weight: 77.6 kg (171 lb 1.6 oz) (01/07) Admission Body Weight: 78 kg (172 lb) (no method) [place] Body Weight (lbs) (Calculated): 110 lbs [place] Body Weight (Kg) (Calculated): 50 kg % [place] Body Weight (Calculated): 157.9 % BMI (kg/m2) [...] to determine Talita Haque RD, LD Contact: *[phone] or via PowerFile chat * Kristel Beard MD - 01/07/2023 11:03 AM EDT Department of Internal Medicine Division of Endocrinology, Diabetes, & Metabolism Endocrinology Note Patient Name: Lacy Alvarado : 1950 AGE: 72 y.o. Room[facility]Bed: [facility] A Admission Date: 01/01/2023 Visit Date: 01/07/2023 Reason for Endocrine Consult: post op heart Provider/Team Requesting Consult: [facility] PCP: MAYDA GARCIA Outpt High Density Finishing Operator: No ASSESSMENT: DM 2 with hyperglycemia without dedicated intermodal truck driver insulin Stress hyperglycemia CAD s/p Cabgx4 PLAN: [...] found for: CHOLHDLRATIO No results found for: [id number] No results found for: TSH, N8NQUMR, E9IGNXJ, THYROIDAB Radiology reportsas per the Radiologist Radiology: [...] date of this note. * Samaria Li, TRANSPORTATION SECURITY OFFICER - 01/07/2023 10:41 AM EDT Physical Therapy Facility/Department: [facility] Physical Therapy Daily Treatment Note NAME: Lacy Alvarado : 1950 Date of Service: 01/07/2023 Discharge Recommendations: IP Rehab, [facility] Facility PT Equipment Recommendations Equipment Needed: No [...] The primary encounter diagnosis was CAD in che[place]is artery. A diagnosis of Coronary artery disease involving coronary bypass graft, unspecified whether angina present, unspecified whether [place] or transplanted heart was also pertinent to this visit. has a past medical history of CHF (congestive heart failure) (CMS/HCC) ([facility]), Diabetes mellitus ([facility]), GERD (gastroesophageal reflux disease), Hyperlipidemia, Hypertension, RA (rheumatoid arthritis) ([facility]), Seizure ([facility]), Seizures ([facility]), and Sleep apnea. has a past surgical [...] / Caregiver Present: No Diagnosis: CAD in [place] artery s/p CABG on 01/01 Follows Commands: [...] Minutes: 42 Minutes (FA, GT x 2) TRANSPORTATION SECURITY OFFICER wore PPE in compliance with hospital guidelines and regulation when treating this patient. Samaria Li, TRANSPORTATION SECURITY OFFICER * Shruthi Weaver, MARKETING TECHNOLOGY COORDINATOR - TREE TAPPING LABORER - 01/07/2023 5:53 AM EDT Images from the original note were not included. Cardiothoracic Surgery/[facility] Progress Note PATIENT NAME: Lacy Alvarado DATE: 01/07/23 HPI: 72 y.o. female was referred by Dr. Bhanu Milian. Patient was admitted on 12/18/22 to [facility] with CP history of CHF, CAD, [...] Medications: ASA, Statin, and BB EF: 01/01: "Normal" Blood Conservation: Transfused postop Business Segment Manager: [facility] * Wendy Curran - 01/06/2023 [...] The primary encounter diagnosis was CAD in che[place]is artery. A diagnosis of Coronary artery disease involving coronary bypass graft, unspecified whether angina present, unspecified whether che[place]is or transplanted heart was also pertinent to this visit. has a past medical history of CHF (congestive heart failure) ([facility]/HCC) ([facility]), Diabetes mellitus ([facility]), GERD (gastroesophageal reflux disease), Hyperlipidemia, Hypertension, RA (rheumatoid arthritis) ([facility]), Seizure ([facility]), Seizures ([facility]), and Sleep apnea. has a past surgical [...] Daily Activity Raw Score: 22 ADL Inpatient [facility] G-Code Modifier: CJ Goals Encounter Problems [...] Plan of Care supervision is transferred to [facility] Occupational Therapist. Goals and/or treatment plan was established in collaboration with patient/family/other representatives. Wendy Curran S/OT * Samaria Li PTA - 01/06/2023 10:07 AM EDT Physical Therapy Facility/Department: [facility] Physical Therapy Daily Treatment Note [...] The primary encounter diagnosis was CAD in che[place] artery. A diagnosis of Coronary artery disease involving coronary bypass graft, unspecified whether angina present, unspecified whether che[place] or transplanted heart was also pertinent to [...] / Caregiver Present: No Diagnosis: CAD in [place] artery s/p CABG on 01/01 Follows Commands: [...] Treatment Minutes: 40 Minutes (FA, GT, TP) TRANSPORTATION SECURITY OFFICER wore PPE in compliance with hospital guidelines and regulation when treating this patient. Samaria Li, TRANSPORTATION SECURITY OFFICER * Shruthi Weaver, MARKETING TECHNOLOGY COORDINATOR - TREE TAPPING LABORER - 01/06/2023 6:06 AM EDT Images from the original note were not included. Cardiothoracic Surgery/CCM Progress Note PATIENT NAME: Lacy Alvarado DATE: 01/06/23 HPI: 72 y.o. female was referred by Dr. Bhanu Milian. Patient was admitted on 12/18/22 to [facility] with CP history of CHF, CAD, [...] Medications: ASA, Statin, and BB EF: 01/01: "Normal" Blood Conservation: Transfused postop Business Segment Manager: [facility] Associated attestation - [place] [...] Requesting Consult: cts PCP: MAYDA GARCIA Outpt High Density Finishing Operator: No ASSESSMENT: DM 2 with hyperglycemia without half-way insulin Stress hyperglycemia CAD s/p Cabgx4 PLAN: [...] found for: CHOLHDLRATIO No results found for: [id number] No results found for: TSH, Z6ZYSHJ, X3ENCKV, THYROIDAB Radiology reportsas per the Radiologist Radiology: [...] this note. * Chandler Ram, GORDO - TREE TAPPING LABORER - 01/05/2023 6:19 AM EDT Images from the original note were not included. Cardiothoracic Surgery/[facility] Progress Note PATIENT NAME: Lacy Alvarado DATE: 01/05/23 HPI: Lacy Alvarado is a 72 y.o. female was referred to us by Dr. Bhanu Milian. 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 Patient also had an echo done which showed mild (1+) tricuspid valve insufficiency." Dr Rose office note 12/23/2022. She presents [...] Core Medications: ASA, Statin, and BB EF: "Nomal" (SIS 01/01/23) Blood Conservation: Transfused post-op. Business Segment Manager: [facility] Associated attestation - rBidger Woods MD - 01/05/2023 2:26 PM EDT [...] (97.4 F) (Temporal) Resp 14 Ht 5' 2" (1.575 m) Wt 175 lb (79.4 kg) SpO2 96% BMI 32.01 kg/m Chest tubes assessed: no air leak, subcutaneous air noted. Chest tubes removed without difficulty and dressing applied. Patient tolerated well. Patient and nurse educated on possible complications toobserve for. Will continue to monitor. * Ambreen Avitia, PT - 01/04/2023 1:07 PM EDT Physical Therapy Facility/Department: [facility] Physical Therapy Daily Treatment Note NAME: [...] The primary encounter diagnosis was CAD in che[place] artery. A diagnosis of Coronary artery disease involving coronary bypass graft, unspecified whether angina present, unspecified whether [place] or transplanted heart was also pertinent to this visit. has a past medical history of CHF (congestive heart failure) ([facility]) ([facility]), Diabetes mellitus ([facility]), GERD (gastroesophageal reflux disease), Hyperlipidemia, Hypertension, RA (rheumatoid arthritis) ([facility]), Seizure ([facility]), Seizures ([facility]), and Sleep apnea. has a past surgical [...] / Caregiver Present: No Diagnosis: CAD in [place] artery s/p CABG on 01/01 Follows Commands: [...] Plan of Care supervision is transferred to [facility] Rehab Department Physical Therapist. Ambreen Avitia PT * Angela Smith MD - 01/04/2023 10:34 AM EDT Department of Internal Medicine Division of Endocrinology, Diabetes, & Metabolism Endocrinology Note Patient Name: Lacy Alvarado : 1950 AGE: 72 y.o. Room/Bed: [facility] A Admission Date: 01/01/2023 Visit Date: 01/04/2023 Reason for Endocrine Consult: post op heart Provider/Team Requesting Consult: cts PCP: MAYDA GARCIA Outpt High Density Finishing Operator: No ASSESSMENT: DM 2 with hyperglycemia without half-way insulin Stress hyperglycemia CAD s/p Cabgx4 PLAN: [...] found for: CHOLHDLRATIO No results found for: [id number] No results found for: TSH, C9ODQND, K3ULOVO, THYROIDAB Radiology reportsas per the Radiologist Radiology: [...] date of this note. * Chandler Ram, MARKETING TECHNOLOGY COORDINATOR - TREE TAPPING LABORER - 01/04/2023 6:02 AM EDT Images from the original note were not included. Cardiothoracic Surgery/CCM Progress Note PATIENT NAME: Lacy Alvarado DATE: 01/04/23 HPI: Lacy Alvarado is a 72 y.o. female was referred to us by Dr. Bhanu Milian. 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 Patient also had an echo done which showed mild (1+) tricuspid valve insufficiency." Dr Rose office note 12/23/2022. She presents [...] Core Medications: ASA, Statin, and BB EF: "Nomal" (SIS 01/01/23) Blood Conservation: Transfused post-op. Business Segment Manager: [facility] * Angela Smith MD - 01/03/2023 9:18 AM EDT Department of Internal Medicine Division of Endocrinology, Diabetes, & Metabolism Endocrinology Note Patient Name: Lacy Alvarado : 1950 AGE: 72 y.o. 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 truck driver insulin Stress hyperglycemia CAD s/p Cabgx4 PLAN: [...] found for: CHOLHDLRATIO No results found for: [id number] No results found for: TSH, L9PIJWB, Z5TFIRM, THYROIDAB Radiology reportsas per the Radiologist Radiology: ECG 12 lead Result Date: 01/01/2023 Sinus rhythm History/Other: Past Medical History: Past Medical History: Diagnosis Date CHF (congestive heart failure) (CMS/HCC) (HCC) Diabetes mellitus (HCC) GERD (gastroesophageal reflux disease) Hyperlipidemia Hypertension RA (rheumatoid arthritis) (HCC) Seizure (HCC) last seizure 5 months ago nathaniel trevor 08/24 Seizures (HCC) Sleep apnea Past [...] date of this note. * Chandler Ram, MARKETING TECHNOLOGY COORDINATOR - TREE TAPPING LABORER - 01/03/2023 5:56 AM EDT Images from the original note were not included. Cardiothoracic Surgery/CCM Progress Note PATIENT NAME: Lacy Alvarado DATE: 01/03/23 HPI: Lacy Alvarado is a 72 y.o. female was referred to us by Dr. Bhanu Milian. 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 Patient also had an echo done which showed mild (1+) tricuspid valve insufficiency." Dr Rose office note 12/23/2022. She presents [...] Core Medications: ASA, Statin, and BB EF: "Nomal" (SIS 01/01/23) Blood Conservation: Transfused post-op. Business Segment Manager: [facility] * Aleksandr Higuera, PT - 01/02/2023 11:02 AM EDT Physical Therapy Facility/Department: [facility] Physical Therapy Initial Evaluation NAME: Lacy [...] The primary encounter diagnosis was CAD in [place] artery. A diagnosis of Coronary artery disease involving coronary bypass graft, unspecified whether angina present, unspecified whether chehalis or transplanted heart was also pertinent to this visit. has a past medical history of CHF (congestive heart failure) ([facility]/HCC) ([facility]), Diabetes mellitus ([facility]), GERD (gastroesophageal reflux disease), Hyperlipidemia, Hypertension, RA (rheumatoid arthritis) ([facility]), Seizure ([facility]), Seizures ([facility]), and Sleep apnea. has a past surgical [...] / Caregiver Present: No Diagnosis: CAD in chehalis artery s/p CABG on 01/01 Follows Commands: [...] Plan of Care supervision is transferred to [facility] Rehab Department Physical Therapist. Aleksandr Higuera PT * Cassandra Olivarez, MARKETING TECHNOLOGY COORDINATOR - INCINERATOR PLANT LABORER - 01/02/2023 9:28 AM EDT Department of Internal Medicine Division of Endocrinology, Diabetes, & Metabolism Endocrinology Note Patient Name: Lacy Alvarado : 1950 AGE: 72 y.o. Room/Bed: T1103/[facility]103 A Admission Date: 01/01/2023 Visit Date: 01/02/2023 Reason for Endocrine Consult: post op heart Provider/Team Requesting Consult: cts PCP: MAYDA GARCIA Outpt High Density Finishing Operator: No ASSESSMENT: Cad s/p Cabgx4 Dm2 with hyperglycemia without dedicated intermodal truck driver insulin Stress hyperglycemia Chf Hld/htn PLAN: discontinue [...] (!) 88% 95% 96% Weight: Height: 5' 2" (1.575 m) Physical Exam Vitals and nursing [...] found for: CHOLHDLRATIO No results found for: [id number] No results found for: TSH, J3OFZBH, N8HMJDG, THYROIDAB Radiology reportsas per the Radiologist Radiology: [...] (99.3 F) (Bladder) Resp 10 Ht 5' 2" (1.575 m) Wt 173 lb 11.6 oz [...] in note. * Chandler Ram APRN - SERENA - 01/02/2023 5:56 AM EDT Images from the original note were not included. Cardiothoracic Surgery/CCM Progress Note PATIENT NAME: Lacy Alvarado DATE: 01/02/23 HPI: Lacy Alvarado is a 72 y.o. female was referred to us by Dr. Bhanu Milian. 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 Patient also had an echo done which showed mild (1+) tricuspid valve insufficiency." Dr Rose office note 12/23/2022. She presents [...] Core Medications: ASA, Statin, and BB EF: "Nomal" (SIS 01/01/23) Blood Conservation: Transfused post-op. Business Segment Manager: [facility] Associated attestation - Carlos Chavarria [...] 35 minutes documented in this [facility]09-09-2023 Note* Care Coordination - Alaina Truong RN - 01/10/2023 2:11 PM EDT Images from the original note were not included. CARE COORDINATION DAILY NOTE/UPDATE Medical Plan: sp CABG x 3 POD # 9. Discharge Plan: [facility] Transitional Care Unit Discharge Barriers: pending medical clearance Received a message from Anna COLLINS "I heard from [facility] "okay to admit." Stated by Shruthi Marshall if you have any questions." Call placed to Shruthi Marshall to confirm [...] RN 01/02/2023 2:07 PM 01/06/2023 Shruthi Weaver, MARKETING TECHNOLOGY COORDINATOR - TREE TAPPING LABORER 01/01/2023 11:16 AM 01/06/2023 Azam Rose MD 01/01/2023 5:45 AM Length of Stay (Days): 9 GMLOS: 5.9 [id number]* Care Coordination - Delores Mullins RN - 01/09/2023 10:21 AM EDT Images from the original note were not included. Care Management Progress Note Patient remains on HLU sp CABG x 3 POD # 8. [facility] can accept, spoke with [...] Length of Stay (Days): 8 GMLOS: 5.9 [id number] Discharge instructions* Discharge Instructions* Kassy Tabares APRN - SERENA - 01/09/2023 8:42 AM EDT Cardiothoracic Surgery: Symptom Management Office phone number: [phone] Office is open 8:30 am -4 pm. [...] Call cardiothoracic surgery line for further instructions: [phone] Office is open 8:30 am -4 pm. [...] Problems Problem List * (Principal) CAD in chehalis artery Allergic disorder Amnesia Arthritis Overview Signed [...] Dissociative disorder DM2 (diabetes mellitus, type 2) ([facility]) Overview Signed 01/01/2023 3:09 PM by Juan J Zuluaga MD Last Assessment & Plan: When she wakes up in the morning sugars are in the 120 range. Those numbers are running in the range of 118 or more depends on what she eats. Seizure disorder (CMS/HCC) ([facility]) Epilepsy ([facility]) Overview Signed 01/01/2023 3:09 PM by Juan [...] Zuluaga MD DME: Camacho Titration done @ [facility] 03/08/2012 recommended CPAP @ 11 cm of H2O with humidification and EPR setting of 3. Olecranon bursitis Obesity Numbness of upper extremity Isolation/Infection: No active isolations No active infections Nurse Assessment: Last Vital Signs: BP 110/59 (BP Location: Left arm, Patient Position: Lying) Pulse 80 Temp 36.5C (97.7 F) (Temporal) Resp 16 Ht 5' 2" (1.575 m) Wt 171 lb 4.8 oz [...] assistance Toileting Minimal assistance Feeding Minimal assistance Factory Helper Independent Med Delivery yes Wound Care Documentation [...] Score: @READMISSIONRISKDETAILS@ Discharging to Facility/ Agency Name: [facility] Address: [address] [facility] Fax: Dialysis Facility (if applicable) Name: Address: Dialysis Schedule: Phone: Fax: School Cleaner/Glass Cut Off Tender signature: ICIAN SECTION Prognosis: good Condition at [...] the diagnosis listed and that she requires residential facility for less than 30 days. Update Admission H&P: Changes in H&P as follows: see below 72 y.o. female was referred by Dr. Bhanu Milian. Patient was admitted on 12/18/22 to [facility] with CP history of CHF, CAD, [...] through Care Everywhere. * Heart Healthy Diet (South African) documented in this [facility]09-08-2023 Note* Care Coordination - Good Jang - 01/09/2023 8:15 AM EDT [facility] TCC request. Referral placed to [facility] via fax # [phone] to Shauna in Admissions Await review and response regarding ability to accept. TCC notified. [id number] Note* Care Coordination - Good Jang - 01/08/2023 3:06 PM EDT Referral placed to [facility] per TCC request. Await review and response regarding ability to accept. TCC notified. [facility] [id number] Note* Care Coordination - Delores Mullins RN - 01/08/2023 2:36 PM EDT Spoke with patient at bedside, alyssa Holloway over the phone to discuss therapy recommendations. Agreeable to [facility] and 2nd choice [facility]. [facility] HospitalNyiqss80-77-8016 Note* Care Coordination - Delores Mullins RN - 01/07/2023 2:18 PM EDT Images from the original note were not included. Care Management Progress Note Patient remains on HLU s/p CABG x 3 POD # 6. PT continuing to recommend IPR vs SNF. [facility] unable to accept patient, [facility]OC, patient and niece declining SNF, discharge plan is home with [facility]. TCC to follow for updated therapy recs [...] 2:07 PM 01/06/2023 Shruthi Weaver APRN - TREE TAPPING LABORER 01/01/2023 11:16 AM 01/06/2023 Azam Rose MD 01/01/2023 5:45 AM Length of Stay (Days): 6 GMLOS: 5.9 [facility] HospitalIdbude63-30-1348 NoteReceived referral and reviewed chart. Phase II Cardiac Rehab Referral discussed with Lacy Alvarado. Patient prefers cardiac rehab at [facility]. Given information on cardiac rehab at preferred location. [facility]09-05-2023 Note* Care Coordination - Delores Mullins RN - 01/06/2023 1:01 PM EDT [facility] unable to accept patient, too functional. Updated patient at bedside and alyssa Holloway (HCPOA) over the phone. Declined SNF at this time, would like to plan discharge home with HHC including PT/OT/SN/NURSING EDUCATION CONSULTANT if possible. Will updated PEDROZA PAC, CTS APPRAISER AUDITOR aware. [facility] [id number] Consult note* Faiza Thomas - 01/06/2023 11:33 AM EDTAssociated Order(s): IP CONSULT TO CARDIAC REHAB Received referral and reviewed chart. Phase II Cardiac Rehab Referral discussed with Lacy Alvarado. [facility] Given information on cardiac rehab at preferred location. [facility] [id number] Consult note* Faiza Thomas - 01/06/2023 11:33 AM EDTAssociated Order(s): IP CONSULT TO CARDIAC REHAB Received referral and reviewed chart. Phase II Cardiac Rehab Referral discussed with Lacy Alvarado. Patient prefers cardiac rehab at [facility]. Given information on cardiac rehab at preferred [...] heart healthy diet handout at bedside with [facility] RD phone number. 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 Pt underwent CABG x 4 01/01. Extubated with diet ordered. Pt is sleeping in chair at time of RD visit-did not disturb. Provided heart healthy diet handout with [facility] RD phone number for reference at bedside. Estimated Daily Nutrient Needs: Energy Requirements Based On: Kcal/kg Weight Used for Energy Requirements: [place] (25-30 kcal/kg) Weight for Energy Calculation (kg): 50 kg Total Energy Requirements (kcals/day): 0513-2251 Weight Used for Protein Requirements: [place] (1.2-1.5 g/kg) Weight in Kg Used for [...] Ordered Anthropometric Measures: Height: 157.5 cm (5' 2") Current Body Weight: 78.8 kg (173 lb 11.6 oz[facility] Admission Body Weight: 78 kg (172 lb) (no method) [place] Body Weight (lbs) (Calculated): 110 lbs [place] Body Weight (Kg) (Calculated): 50 kg % [place] Body Weight (Calculated): 157.9 % BMI (kg/m2) [...] to determine Talita Haque RD, LD Contact: *[phone] or via PowerFile chat * Kaye Sanchez, MARKETING TECHNOLOGY COORDINATOR - [facility] - 01/01/2023 11:40 AM EDTAssociated Order(s): IP CONSULT TO ENDOCRINOLOGY Department of Internal Medicine Division of Endocrinology, Diabetes, & Metabolism Endocrinology Note Patient Name: Lacy Alvarado : 1950 AGE: 72 y.o. Room/Bed: [facility] A Admission Date: 01/01/2023 Visit Date: 01/01/2023 Reason for Endocrine Consult: post op heart Provider/Team Requesting Consult: cts PCP: MAYDA GARCIA Outpt High Density Finishing Operator: No ASSESSMENT: Cad s/p Cabgx4 Dm2 with hyperglycemia without half-way insulin Stress hyperglycemia Chf Hld/htn PLAN: Continue [...] kg (172 lb) Height: 1.575 m (5' 2") 1.575 m (5' 2") Physical Exam Vitals and nursing note reviewed. [...] found for: CHOLHDLRATIO No results found for: [id number] No results found for: TSH, A5OKPUU, U2NSWYP, THYROIDAB Radiology reportsas per the Radiologist Radiology: [...] (99 F) Resp (!) 28 Ht 5' 2" (1.575 m) Wt 172 lb (78 kg) [...] care as documented in note. * Mynor Villareal, GORDO - TREE TAPPING LABORER - 01/01/2023 8:58 AM EDT Images from the original note were not included. [facility]: Critical Care Consultation Note Date: 01/01/23 PATIENT NAME: Lacy Alvarado : 1950 (72 y.o.) Reason for Consult: Critical Care & Vent Management HPI: Lacy Alvarado is a 72 y.o. female was referred to us by Dr. Bhanu Milian. 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 Patient also had an echo done which showed mild (1+) tricuspid valve insufficiency." Dr Rose office note 12/23/2022. She presents [...] (Temporal) Resp 16 Ht 1.575 m (5' 2") Wt 78 kg (172 lb) SpO2 100% [...] PM EDT I have personally performed a [id number]-qdsm diagnostic evaluation on this patient on date [...] Pacer wires documented in this [facility]09-05-2023 NoteCare Management Progress Note Patient remains [...] 2:07 PM 01/06/2023 Shruthi Weaver APRN - TREE TAPPING LABORER 01/01/2023 11:16 AM 01/06/2023 Azam Rose MD 01/01/2023 5:45 AM Length of Stay (Days): 5 GMLOS: 5.9 [facility]09-05-2023 Note* Care Coordination - Delores Mullins [...] RN 01/02/2023 2:07 PM 01/06/2023 Shruthi Weaver, MARKETING TECHNOLOGY COORDINATOR - TREE TAPPING LABORER 01/01/2023 11:16 AM 01/06/2023 Azam Rose MD 01/01/2023 5:45 AM Length of Stay (Days): 5 GMLOS: 5.9 [facility] HospitalQwbinq05-34-0065 NoteCardiothoracic Surgery/CCM Progress Note PATIENT NAME: Lacy Alvarado DATE: 01/04/23 HPI: Lacy Alvarado is a 72 y.o. female was referred to us by Dr. Bhanu Milian. 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 Patient also had an echo done which showed mild (1+) tricuspid valve insufficiency." Dr Rose office note 12/23/2022. She presents [...] Core Medications: ASA, Statin, and BB EF: "Nomal" (SIS 01/01/23) Blood Conservation: Transfused post-op. Business Segment Manager: [facility]09-02-2023 NoteCardiothoracic Surgery/CCM Progress Note PATIENT NAME: Lacy Alvarado DATE: 01/03/23 HPI: Lacy Alvarado is a 72 y.o. female was referred to us by Dr. Bhanu Milian. 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 Patient also had an echo done which showed mild (1+) tricuspid valve insufficiency." Dr Rose office note 12/23/2022. She presents [...] Core Medications: ASA, Statin, and BB EF: "Nomal" (SIS 01/01/23) Blood Conservation: Transfused post-op. Business Segment Manager: [facility]09-02-2023 Plan of care note* Care Plan [...] Interventions Goal: Assess Nutritional Intake Outcome: Progressing [facility] [id number] Note* Home Care - Lisa Yo RN - 01/02/2023 3:39 PM EDT Business Development Recruiter following case for Discharge Needs. T [facility] [id number] NoteNutrition Assessment Type and Reason for Visit: [...] heart healthy diet handout at bedside with [facility] phone number. 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 Pt underwent CABG x 4 01/01. Extubated with diet ordered. Pt is sleeping in chair at time of RD visit-did not disturb. Provided heart healthy diet handout with [facility] RD phone number for reference at bedside. Estimated Daily Nutrient Needs: Energy Requirements Based On: Kcal/kg Weight Used for Energy Requirements: [place] (25-30 kcal/kg) Weight for Energy Calculation (kg): 50 kg Total Energy Requirements (kcals/day): 8795-8041 Weight Used for Protein Requirements: [place] (1.2-1.5 g/kg) Weight in Kg Used for [...] Ordered Anthropometric Measures: Height: 157.5 cm (5' 2") Current Body Weight: 78.8 kg (173 lb 11.6 oz) (01/02 [facility]) Admission Body Weight: 78 kg (172 lb) (no method) [place] Body Weight (lbs) (Calculated): 110 lbs [place] Body Weight (Kg) (Calculated): 50 kg % [place] Body Weight (Calculated): 157.9 % BMI (kg/m2) [...] to determine Talita Haque RD, LD Contact: *[phone] or via [place] [id number] Note* Care Coordination - Delores Mullins RN - 01/02/2023 2:07 PM EDT Care Managment Initial Assessment Date: 01/02/2023 Patient Name: Lacy Alvarado : 1950 Patient Information Source of Information: Patient Cognition/Language: WFL - Within Functional Limits Permission given to speak with patient desk representative/caregiver as indicated: Yes Confirmation of Payer with patient/family: Yes Payer Name: [place] Medicare : No Confirmation of Primary Care [...] Living Prescription Coverage: Yes Pharmacy Used: [facility] Medication Management: Independent Transportation/Shopping: Assistance Provider [...] for home care needs. Delores Mullins RN [facility]Iqhqeg26-71-1835 Consult note* Talita Haque, RD - 01/02/2023 [...] heart healthy diet handout at bedside with [facility] RD phone number. Will return prior to discharge for education needs assessment, as able RD will monitro overall nutrition status and follow weekly Malnutrition Assessment: Malnutrition Status: At risk for malnutrition (Comment) (s/p open heart surgery) Nutrition Assessment: Pt with PMH including HTN, DM, HLD, CHF, RA, epilepsy, GERD, LINA, prior PCI, presented to [facility] on 01/01/23 for CABG after recent admissiont to [facility] on 12/18/22 and had LHC = [...] On: Kcal/kg Weight Used for Energy Requirements: [place] (25-30 kcal/kg) Weight for Energy Calculation (kg): 50 kg Total Energy Requirements (kcals/day): 6274-6143 Weight Used for Protein Requirements: [place] (1.2-1.5 g/kg) Weight in Kg Used for [...] Ordered Anthropometric Measures: Height: 157.5 cm (5' 2") Current Body Weight: 78.8 kg (173 lb 11.6 oz) (01/02 bedscale) Admission Body Weight: 78 kg (172 lb) (no method) [place] Body Weight (lbs) (Calculated): 110 lbs [place] Body Weight (Kg) (Calculated): 50 kg % [place] Body Weight (Calculated): 157.9 % BMI (kg/m2) [...] to determine Talita Haque RD, LD Contact: *[phone] or via PowerFile chat T [facility] [id number] NotePatient: Lacy Alvarado Procedure Summary Date: 01/01/23 Room / Location: [facility] OR [address] [place] [address] Operating Room Anesthesia Start: 58 Anesthesia Stop: 1129 Procedures: CABG AND SIS (Chest) Echocardiography transesophageal real-time Diagnosis: Atherosclerotic heart diseas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 angina pectoris (Atherosclerotic heart diseas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 angina pectoris [I25.10]) Surgeons: [...] discharged once all PACU criteria has been met.[facility]08-31-2023 NotePatient: Lacy Alvarado Procedure Summary Date: 01/01/23 Room / Location: [facility] OR [address] [place] [address] Operating Room Anesthesia Start: 657 Anesthesia Stop: 1129 Procedures: CABG AND SIS (Chest) Echocardiography transesophageal real-time Diagnosis: Atherosclerotic heart diseas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 angina pectoris (Atherosclerotic heart diseas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 angina pectoris [I25.10]) Surgeons: [...] Allowed opportunity for questions and acknowledgement of understanding.[facility] [id number] NoteArterial Line: Date/Time: 01/01/2023 7:05 AM An [...] secured by Tegaderm and tape. Staffing Performed: BILINGUAL COUNTER SALES RETAIL Anesthesiologist: Cruzito Frost MD Resident/BILINGUAL COUNTER SALES RETAIL: Azar Rojo APRN - BILINGUAL COUNTER SALES RETAIL Performed by: GORDO Kenney CRNA Authorized by: Azar Rojo APRN - [facility]08-31-2023 Consult note* GORDO Deleon CNP - 01/01/2023 11:40 AM EDTAssociated Order(s): IP CONSULT TO ENDOCRINOLOGY Department of Internal Medicine Division of Endocrinology, Diabetes, & Metabolism Endocrinology Note Patient Name: Lacy Alvarado : 1950 AGE: 72 y.o. Room/Bed: [facility] A Admission Date: 01/01/2023 Visit Date: 01/01/2023 Reason for Endocrine Consult: post op heart Provider/Team Requesting Consult: cts PCP: MAYDA GARCIA Outpt High Density Finishing Operator: No ASSESSMENT: Cad s/p Cabgx4 Dm2 with hyperglycemia without dedicated intermodal truck driver insulin Stress hyperglycemia Chf Hld/htn PLAN: Continue [...] kg (172 lb) Height: 1.575 m (5' 2") 1.575 m (5' 2") Physical Exam Vitals and nursing note reviewed. [...] found for: CHOLHDLRATIO No results found for: ZYHE04JOV No results found for: TSH, N0MNQVT, M4JJDNG, THYROIDAB Radiology reportsas per the Radiologist Radiology: [...] (99 F) Resp (!) 28 Ht 5' 2" (1.575 m) Wt 172 lb (78 kg) [...] coordination of care as documented in note. [facility] Phone: 1(666) 170-227408-31-2023 NoteAirway Date/Time: 01/01/2023 7:08 AM Urgency: scheduled Airway not difficult General Information and Staff Patient location during procedure: Procedural Anesthesiologist: Cruzito Frost MD Resident/BILINGUAL COUNTER SALES RETAIL: GORDO Kenney CRNA Performed: BILINGUAL COUNTER SALES RETAIL Performed by: GORDO Kenney CRNA Authorized by: [...] attempts: BVM Number of other approaches attempted: [address] [place], [place] 0206608-31-2023 Note Central Venous Line: Date/Time: 01/01/2023 7:26 [...] GORDO Kenney CRNA Authorized by: GORDO Kenney CRNA[facility]-20[facility] Consult note* GORDO Bennett CNP - 01/01/2023 8:58 AM EDT Images from the original note were not included. [facility]: Critical Care Consultation Note Date: 01/01/23 PATIENT NAME: Lacy Alvarado : 1950 (72 y.o.) Reason for Consult: Critical Care & Vent Management HPI: Lacy Alvarado is a 72 y.o. female was referred to us by Dr. Bhanu Milian. 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 Patient also had an echo done which showed mild (1+) tricuspid valve insufficiency." Dr Rose office note 12/23/2022. She presents [...] reflux disease), Hyperlipidemia, Hypertension, RA (rheumatoid arthritis) ([facility]), Seizure (HCC), Seizures (HCC), and Sleep apnea. [...] (Temporal) Resp 16 Ht 1.575 m (5' 2") Wt 78 kg (172 lb) SpO2 100% [...] PM EDT I have personally performed a qwcs-uo-vgdl diagnostic evaluation on this patient on date of aghegdu10/31/23 . History, labs, imaging studies, and electronic [...] air leak in CTs No Pacer wires Phone: [phone]) 176-907208-31-2023 Note* Op Note - Azam Rose MD [...] intraoperative transesophageal echocardiography Surgeon: Azam Rose MD Shelter Monitor(s): [] Thomas Silva [x] Raymundo Marei [x] Yemi Sharma [] Yemi Tabares [] [...] Milian. Patient was admitted on 12/18/22 to [facility] with CP. She had a history [...] with closure. The sternum was reapproximated with pccxqp-to-fyhpc wires and the overlying tissues were closed in multiple layers. The patient was transported to the intensive care unit in serious but stable condition. [facility]08-28-2023 NotePatient: Lacy Alvarado Procedure Information Date/Time: 01/01/23729 Procedures: CABG AND SIS (Chest) Echocardiography transesophageal real-time Location: [facility] OR [address] [place] [address] Operating Room Surgeons: Azam Rose MD Past Medical History: Past Medical History: No date: CHF (congestive heart failure) (CMS/HCC) ([facility]) No date: Diabetes mellitus ([facility]) No date: GERD (gastroesophageal reflux disease) No date: Hyperlipidemia No date: Hypertension No date: RA (rheumatoid arthritis) ([facility]) No date: Seizure ([facility]) Comment: last seizure 5 months ago nathaniel mal 08/24 No date: Seizures ([facility]) No date: Sleep apnea Past Surgical History: [...] results found for this or any previous visit.[facility] 12-29-2022 NoteComprehensive Pre Surgical History and Physical ? Name: Lacy Alvarado : 1950 (Age-72 y.o.) Date of Service: Pt seen/examined on 12/29/2022 Procedure Information Date/Time: 01/01/23 3430 Procedures: CABG AND SIS (Chest) Echocardiography transesophageal real-time Location: [facility] OR [facility] Operating Room Surgeons: Azam Rose MD Chief Complaint: "Heart vessels are clogged up" patient states ASSESSMENT/PLAN: Patient is considered high risk for this high risk procedure/surgery () with no reducible risk factors. Based on the above evaluation, the benefits of the planned procedure likely exceed the risks. The patient is medically optimized to proceed with the planned procedure without any further cardiopulmonary testing. 1) Atherosclerotic heart diseas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 angina pectoris [I25.10] Pre-op diagnosis: Atherosclerotic heart diseas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 angina pectoris [I25.10] - [...] who we are asked to see/evaluate by [facility] ADINA for pre-operative evaluation prior to . CABG AND SIS (Chest) [16589 CPT(R)] Echocardiography transesophageal real-time [83026 CPT(R)] Anesthesia type: General Reason for Visit: [...] Milian. Patient was admitted on 12/18/22 to [facility] with CP. Per notes, patient has a history of CHF, CAD, DM type 2, hyperlipidemia, epilepsy, HTN, RA, LINA, and prior PCI with stent of the left anterior descending artery. . Patient underwent a left heart catheterization that demonstrated: a high grade lesion in the circumflex artery. Patient also had an echo done which showed mild (1+) tricuspid valve insufficiency." Dr Rose office note 12/23/2022 ? Denies history of MD, TIA, CVA Past Medical History: Past Medical History: No date: CHF (congestive heart failure) ([facility]/HCC) ([facility]) No date: Diabetes mellitus ([facility]) No date: GERD (gastroesophageal reflux disease) No date: Hyperlipidemia No date: Hypertension No date: RA (rheumatoid arthritis) ([facility]) No date: Seizure ([facility]) Comment: last seizure 5 months ago felixnapoleon murray 08/24 No date: Seizures ([facility]) No date: Sleep apnea Past Surgical History: [...] tablet Take 75 mg (more content not included)...[facility] [id number] NoteComprehensive Pre Surgical History and Physical ? Name: Lacy Alvarado : 1950 (Age-72 y.o.) Date of Service: Pt seen/examined on 12/29/2022 Procedure Information Date/Time: 01/01/23 0730 Procedures: CABG AND SIS (Chest) Echocardiography transesophageal real-time Location: [facility] OR [facility] Operating Room Surgeons: Azam Rose MD Chief Complaint: "Heart vessels are clogged up" patient states ASSESSMENT/PLAN: Patient is considered high risk for this high risk procedure/surgery () with no reducible risk factors. Based on the above evaluation, the benefits of the planned procedure likely exceed the risks. The patient is medically optimized to proceed with the planned procedure without any further cardiopulmonary testing. 1) Atherosclerotic heart diseas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 angina pectoris [I25.10] Pre-op diagnosis: Atherosclerotic heart diseas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 angina pectoris [I25.10] - [...] are asked to see/evaluate by [place] [address] for pre-operative evaluation prior to . CABG AND SIS (Chest) [81242 CPT(R)] Echocardiography transesophageal real-time [61716 CPT(R)] Anesthesia type: General Reason for Visit: [...] Milian. Patient was admitted on 12/18/22 to [facility] with CP. Per notes, patient has a history of CHF, CAD, DM type 2, hyperlipidemia, epilepsy, HTN, RA, LINA, and prior PCI with stent of the left anterior descending artery. . Patient underwent a left heart catheterization that demonstrated: a high grade lesion in the circumflex artery. Patient also had an echo done which showed mild (1+) tricuspid valve insufficiency." Dr Rose office note 12/23/2022 ? Denies history of MD, TIA, CVA Past Medical History: Past Medical History: No date: CHF (congestive heart failure) (CMS/HCC) (HCC) No date: Diabetes mellitus (HCC) No date: GERD (gastroesophageal reflux disease) No date: Hyperlipidemia No date: Hypertension No date: RA (rheumatoid arthritis) (HCC) No date: Seizure (HCC) Comment: last seizure 5 months ago nathaniel mal 08/24 No date: Seizures (HCC) No date: [...] tablet Take 75 mg (more content not included)...[facility]08-28-2023 History and physical note* GORDO Larkin CNP - 12/29/2022 2:00 PM EDT Images from the original note were not included. Comprehensive Pre Surgical History and Physical ? Name: Lacy Alvarado : 1950 (Age-72 y.o.) Date of Service: Pt seen/examined on 12/29/2022 Procedure Information Date/Time: 01/01/23 2130 Procedures: CABG AND SIS (Chest) Echocardiography transesophageal real-time Location: [address] Operating Room Surgeons: Azam Rose MD Chief Complaint: "Heart vessels are clogged up" patient states ASSESSMENT/PLAN: Patient is considered high risk for this high risk procedure/surgery () with no reducible risk factors. Based on the above evaluation, the benefits of the planned procedure likely exceed the risks. The patient is medically optimized to proceed with the planned procedure without any further cardiopulmonary testing. 1) Atherosclerotic heart diseas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 angina pectoris [I25.10] Pre-op diagnosis: Atherosclerotic heart diseas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 angina pectoris [I25.10] - [...] who we are asked to see/evaluate by [facility] 05 for pre-operative evaluation prior to. CABG AND SIS (Chest) [78715 CPT(R)] Echocardiography transesophageal real-time [65496 CPT(R)] Anesthesia type: General Reason for Visit: [...] Milian. Patient was admitted on 12/18/22 to [facility] with CP. Per notes, patient has a history of CHF, CAD, DM type 2, hyperlipidemia, epilepsy, HTN, RA, LINA, and prior PCI with stent of theleft anterior descending artery. . Patient underwent a left heart catheterization that demonstrated: a high grade lesion in the circumflex artery. Patient also had an echo done which showed mild (1+)tricuspid valve insufficiency." Dr Rose office note 12/23/2022 ? Denies history of MD, TIA, CVA Past Medical History: Past Medical History: No date: CHF (congestive heart failure) ([facility]) ([facility]) No date: Diabetes mellitus ([facility]) No date: GERD (gastroesophageal reflux disease) No date: Hyperlipidemia No date: Hypertension No date: RA (rheumatoid arthritis) ([facility]) No date: Seizure ([facility]) Comment: last seizure 5 months ago nathaniel mal 08/24 No date: Seizures ([facility]) No date: Sleep apnea Past Surgical History: [...] Do not crush or chew. Historical ProviderMD losartan (Cozaar) 50 MG tablet Take 50 [...] Larkin CNP Date: 12/29/2022 at 2:58 PM Converser Work Phone: 1(323) 638-574008-28-2023 History and physical note* GORDO Larkin CNP - 12/29/2022 2:00 PM EDT Images from the original note were not included. Comprehensive Pre Surgical History and Physical ? Name: Lacy Alvarado : 1950 (Age-72 y.o.) Date of Service: Pt seen/examined on 12/29/2022 Procedure Information Date/Time: 01/01/23 8330 Procedures: CABG AND SIS (Chest) Echocardiography transesophageal real-time Location: [facility] OR [address] [place] [address] Operating Room Surgeons: Azam Rose MD Chief Complaint: "Heart vessels are clogged up" patient states ASSESSMENT/PLAN: Patient is considered high risk for this high risk procedure/surgery () with no reducible risk factors. Based on the above evaluation, the benefits of the planned procedure likely exceed the risks. The patient is medically optimized to proceed with the planned procedure without any further cardiopulmonary testing. 1) Atherosclerotic heart diseas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 angina pectoris [I25.10] Pre-op diagnosis: Atherosclerotic heart diseas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 angina pectoris [I25.10] - [...] are asked to see/evaluate by [place] [address] for pre-operative evaluation prior to. CABG AND SIS (Chest) [68574 CPT(R)] Echocardiography transesophageal real-time [86353 CPT(R)] Anesthesia type: General Reason for Visit: [...] Milian. Patient was admitted on 12/18/22 to [facility] with CP. Per notes, patient has a history of CHF, CAD, DM type 2, hyperlipidemia, epilepsy, HTN, RA, LINA, and prior PCI with stent of theleft anterior descending artery. . Patient underwent a left heart catheterization that demonstrated: a high grade lesion in the circumflex artery. Patient also had an echo done which showed mild (1+)tricuspid valve insufficiency." Dr Rose office note 12/23/2022 ? Denies history of MD, TIA, CVA Past Medical History: Past Medical History: No date: CHF (congestive heart failure) ([facility]/HCC) ([facility]) No date: Diabetes mellitus ([facility]) No date: GERD (gastroesophageal reflux disease) No date: Hyperlipidemia No date: Hypertension No date: RA (rheumatoid arthritis) ([facility]) No date: Seizure ([facility]) Comment: last seizure 5 months ago felixnapoleon murray 08/24 No date: Seizures ([facility]) No date: Sleep apnea Past Surgical History: [...] ECHO and EF: Imaging Left heart cath 8/18/23 Echocardiogram Complete 12/19/22 METS >4 Electronically signed by: GORDO Larkin CNP Date: 12/29/2022 at 2:58 PM documented in this [facility]08-23-2023 Telephone encounter Note* Telephone Encounter - GORDO Felix CNP - 12/24/2022 11:44 AM EDT Surg proc orders placed, medications e-scribed - talked to patient, answered all questions. [id number] Miscellaneous Notes* Telephone Encounter - GORDO Felix [...] [] Other: documented in this [facility]08-22-2023 NotePrep for Procedure Order Request: 12/23/22 Surgeon: Dr. Rose Surgery/Procedure: CABG & SIS Plan Admit: Yes PAT Appointment: 12/26/22 at 1:00 PM Date if yes: Date of Surgery/Procedure: 01/01/23 at 7:30 AM Medication needed held: [] None [] Other: Medication needed prescribed: [] None [x] Nasal ointment and mouth rinse [] Other: [facility]08-22-2023 Telephone encounter Note* Telephone Encounter - [...] Nasal ointment and mouth rinse [] Other: [facility] History of Present illness Narrative* Azam Rose MD - 12/23/2022 10:30 AM EDT Images from the original note were not included. [facility] CARDIOVASCULAR & THORACIC SURGERY [address] [facility] [address] Dept: [phone] Dept Loc: [phone] Visit type: New Reason for Visit: Multivessel [...] Milian. Patient was admitted on 12/18/22 to [facility] with CP. Per notes, patient has [...] This note may have been dictated using [employer] Practice Edition 2.6 and/or [employer] Voice Recognition Feature. The document was proofread, however unrecognized voice recognition plans examiner errors may be present. documented in this [facility]08-22-2023 History of Present illness Narrative* Azam Rose MD - 12/23/2022 10:30 AM EDT Images from the original note were not included. [facility] CARDIOVASCULAR & THORACIC SURGERY [address] [facility] [address] [facility] [address] Dept: [phone] Dept Loc: [phone] Visit type: New Reason for Visit: Multivessel [...] Milian. Patient was admitted on 12/18/22 to [facility] with CP. Per notes, patient has [...] This note may have been dictated using [employer] Practice Edition 2.6 and/or [employer] Voice Recognition Feature. The document was proofread, however unrecognized voice recognition plans examiner errors may be present. documented in this [facility]08-18-2023 Discharge summary Author Edwin Kaplan [facility] December 19, 2022 3:41pm Note Date/Time December 19, 2022 3: 38pm [facility] Medical Records Department [address] [place] [address] Instructions for Home/Discharge Instructions 12/19/22 1537 MR#: [id number] Acct: [id number] Name: LACY ALVARADO Rep #:[id number] : 1950 72 From: Edwin martin [...] Follow-up with the cardiothoracic surgery team at [place] as discussed. Discharge Orders/Prescriptions Prescriptions: New isosorbide [...] Prolia 60 mg/mL syringe 60 mg subcut [id number] Qty: 1 2RF Discontinued isosorbide mononitrate 30 [...] MD; Dr. Bhanu Milian MD ~ Signed [facility] Work Phone: 1(718) 976-848908-18-2023 Procedure [facility] 12-19-2022 Consult note Author Bhanu Milian [facility] December 19, 2022 4:13pm Note Date/Time December 19, 2022 8: 32am [facility] Medical Records Department [address] [place] [address] Consultation - Cardiology 12/19/22 0830 MR#: [id number] Acct: [id number] Name: LACY ALVARADO Rep #:[id number] : 1950 72 From: Karen LÓPEZ PCP: Dr. Mayda Garcia MD Status:A DM DELFIN Location: [place] [address] <Statement entered by Bhanu Milian MD - [...] She was referred to Dr. Rose at [facility]. She will follow-up with them [...] is a 72 F who presented to [facility] ER on 12/18/22 with Chest [...] 60%, circumflex 50% stenosis, RCA 60% stenosis. [facility] Medical History Abdominal pain Acute back pain Anemia Arthritis Atherosclerotic heart diseas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 angina pectoris Cardiology follow-up [...] mg/mL subcutaneous syringe (Prolia) 60 mg subcut [id number] #1 mL 12/11/22 [Rx Last Taken Unknown] [...] Garcia MD; Dr. Bhanu Milian MD~ Signed [facility] Work Phone: 1(775) 734-117708-17-2023 History and physical note [facility] December 18, 2022 4:38pm Note Date/Time December 18, 2022 4: 36pm [facility] Medical Records Department [address] [place] [address] H&P Exam - Hospitalist 12/18/22 1627 MR#: [id number] Acct: [id number] Name: LACY ALVARADO Rep #:[id number] 2 : 1950 72 From: Edwin martin DO PCP: Dr. Mayda Garcia MD Status:A DM DELFIN Location: [place] [address] HPI - General General Date of Admission: 12/18/22 Date of Service: 12/18/22 Chief Complaint: Chest pain HPI Narrative Lacy Alvarado is a 72-year-old female with history significant for CAD s/p stenting on Plavix (follows w/ Dr. Johnson), hypertension, seizures, mcl-vicnwxy-daucongas type 2 diabetes and GERD who presented to the [facility] ED on 12/18 with chest pain. [...] to view this. Chest x-ray was nonacute. [facility] Medical History Abdominal pain Acute back pain Anemia Arthritis Atherosclerotic heart diseas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 angina pectoris Cardiology follow-up [...] mg/mL subcutaneous syringe (Prolia) 60 mg subcut [id number] #1 mL 12/11/22 [Rx Last Taken Unknown] [...] 43.9 L, Lymph % (Auto) 45.0 H, [place] % (Auto) 8.1, Eos % (Auto) 2.4, [...] Plavix (follows w/ Dr. Johnson), hypertension, seizures, pdp-vjcveus-gqlufojkr type 2 diabetes and GERD who presented to the [facility] ED on 12/18 with chest pain. [...] Seizure disorder ? Continue home divalproex. 4. Fou-lerygmn-mftowzzly type 2 diabetes ? Home medication of Sitagliptin. Will monitor blood sugars here, can add on sliding scale insulin as needed. DVT prophylaxis: Heparin drip CODE STATUS: Full code, verified Expected disposition: Home, tomorrow Total clinical time spent by myself addressing the patient's medical issues, reviewing all the data, and collaborating with patient's care team: 55 minutes. Charges/Coding Visit Charges Inpatient E&M: 20388 Init Hosp L2 12/18/22 8327 <Electronically signed by Edwin Kaplan DO> Cosigner Signature (if applicable): CC: Dr. Edwin Kaplan DO; Dr. Mayda Garcia MD~ Signed [facility] Work Phone: 1(370) 543-132908-17-2023 Discharge summary Author Jossue Boyd [facility] December 18, 2022 8:57am Note Date/Time December 18, 2022 5: 38am [facility] Medical Records Department [address] [place] [address] Emergency Department Summary 12/18/22 MR#: [id number] Acct: [id number] Name: LACY ALVARADO Rep #:[id number] : 1950 72 From: Turner Armendariz [...] surgery. No history of PE or DVT. [facility] Medical History (Updated 12/18/22 @ 06:[address] Turner Armendariz, DO) Abdominal pain Acute back pain Anemia Arthritis Atherosclerotic heart diseas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 angina pectoris Cardiology follow-up [...] mg/mL subcutaneous syringe (Prolia) 60 mg subcut [id number] #1 mL 12/11/22 [Rx Last Taken Unknown] [...] coronary artery disease. Patient placed on a traffic monitor specialist. EKG obtained on arrival shows sinus rhythm [...] 43.9 L Lymph % (Auto) 45.0 H [place] % (Auto) 8.1 Eos % (Auto) 2.4 [...] Prolia 60 mg/mL syringe 60 mg subcut [id number] Qty: 1 2RF Primary Care Provider: Mayda Garcia Referrals: Mayda Garcia MD [Primary Care Provider] - What to do if you have Problems For any increased pain, shortness of breath, bleeding, nausea or vomiting, chestpain, or any unexpected problems, contact your Primary Care Provider. Call [facility] ([phone]) or report to the closest Emergency Room. [...] cc: Dr. Mayda Garcia MD ~* Signed [facility] Work Phone: 1(510) 137-611608-17-2023 Discharge summary Author Jossue Boyd [facility] December 18, 2022 8:57am Note Date/Time December 18, 2022 5: 38am [facility] Medical Records Department [address] [place] [address] Emergency Department Summary 12/18/22 MR#: [id number] Acct: [id number] Name: LACY ALVARADO Rep #:[id number] 2 : 1950 72 From: Turner Armendariz [...] surgery. No history of PE or DVT. [facility] Medical History (Updated 12/18/22 @ 06:[address] Turner Armendariz DO) Abdominal pain Acute back pain Anemia Arthritis Atherosclerotic heart diseas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 angina pectoris Cardiology follow-up [...] mg/mL subcutaneous syringe (Prolia) 60 mg subcut [id number] #1 mL 12/11/22 [Rx Last Taken Unknown] [...] coronary artery disease. Patient placed on a traffic monitor specialist. EKG obtained on arrival shows sinus rhythm [...] 43.9 L Lymph % (Auto) 45.0 H [place] % (Auto) 8.1 Eos % (Auto) 2.4 [...] Prolia 60 mg/mL syringe 60 mg subcut [id number] Qty: 1 2RF Primary Care Provider: Mayda Garcia Referrals: Mayda Garcia MD [Primary Care Provider] - What to do if you have Problems For any increased pain, shortness of breath, bleeding, nausea or vomiting, chestpain, or any unexpected problems, contact your Primary Care Provider. Call [facility] ([phone]) or report to the closest Emergency Room. [...] cc: Dr. Mayda Garcia MD ~* Signed [facility] Work Phone: 1(102) 175-710804-13-[address] Freeman [facility] August 14, 2022 1:07am Note Date/Time August 13, 2022 10: 30pm [facility] Medical Records Department [address] [place] [address] Emergency Department Summary 08/13/22 MR#: [id number] Acct: [id number] Name: LACY ALVARADO Rep #:[id number] : 1950 71 From: Tin Freeman [...] in the past. 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 She complains of headache, and states that she does not usually have a headacheafter seizure. No fever, chills. PFSH PFS Medical History Abdominal pain Acute back pain Anemia Arthritis Atherosclerotic heart diseas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 angina pectoris Cardiology follow-up [...] mg/mL subcutaneous syringe (Prolia) 60 mg subcut [id number] #1 mL 05/20/22 [Rx Last Taken Unknown] [...] 45.6 L Lymph % (Auto) 44.1 H [place] % (Auto) 7.4 Eos % (Auto) 2.1 [...] Prolia 60 mg/mL syringe 60 mg subcut [id number] Qty: 1 0RF atorvastatin 80 mg tablet [...] your Primary Care Provider. Call [facility] ([phone]) or report to the closest Emergency Room. Call 911 if necessary. 08/14/22 010 <Electronically signed by Tin Freeman DO> Cosigner Signature (if applicable): CC: Dr. Mayda Garcia MD ~ Signed [facility] Work Phone: [phone]) 756-234802-04-[address] Patel [facility] June 07, 2022 6:15pm Note Date/Time June 07, 2022 6 :12pm [facility] Medical Records Department [address] [place] [address] Emergency Department Summary 06/07/22 MR#: [id number] Acct: [id number] Name: LACY ALVARADO Rep #:[id number] : 1950 71 From: Ezekiel Patel [...] Immunization: 5-10 years Recent Illness/Hospitalization: Yes PFSH [facility] Medical History Abdominal pain Acute back pain Anemia Arthritis Atherosclerotic heart diseas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 angina pectoris Cardiology follow-up [...] mg/mL subcutaneous syringe (Prolia) 60 mg subcut [id number] #1 mL 05/20/22 [Rx Last Taken Unknown] [...] Prolia 60 mg/mL syringe 60 mg subcut [id number] Qty: 1 0RF Primary Care Provider: Mayda [...] your Primary Care Provider. Call [facility] ([phone]) or report to the closest Emergency Room. Call 911 if necessary. 06/07/221814 <Electronically signed by Ezekiel Patel MD> Cosigner Signature (if applicable): CC: Dr. Mayda Garcia MD ~ Signed [facility] Work Phone: [phone]) 711-648002-04-2023 Hospital Discharge instructions Additional Instructions Apply ice to your left chest wall and shoulder 6-[facility] times a [facility] Work Phone: Discharge summary Author Edwin Kaplan [facility] December 19, 2022 4:23pm Note Date/Time December 19, 2022 3: 41pm [facility] Medical Records Department [address] [place] [address] Discharge Summary 12/19/22 1541 MR#: [id number] Acct: [id number] Name: LACY ALVARADO Ede Rep #:[id number] 6 : 1950 72 From: Edwin Mo hugh DO PCP: Dr. Mayda Garcia MD Status:A DM DELFIN Location: [place] [address] Providers Date of Admission: 12/18/22 Date of [...] mg/mL subcutaneous syringe (Prolia) 60 mg subcut [id number] #1 mL 12/11/22 pantoprazole 40 mg tablet,delayed [...] Plavix (follows w/ Dr. Johnson), hypertension, seizures, hdf-wfarctg-otfikkowx type 2 diabetes and GERD who presented to the [facility] ED on 12/18 with chest pain. [...] for an outpatient appointment with them in [place] early next week. She tolerated the catheterization well and was stable afterwards. A transthoracic echocardiogram was done post catheterization, read was pending on discharge. She was discharged home in stable condition. Discharge diagnoses: Chest pain, improved CAD s/p stenting Hypertension Seizures Myl-rothsng-qumrgtmox type 2 diabetes GERD PCP follow-up: Patient will be following up with cardiothoracic surgery in [facility] discuss options for intervention on her [...] Follow-up with the cardiothoracic surgery team at [place] as discussed. Discharge Orders/Prescriptions Prescriptions: New isosorbide [...] Prolia 60 mg/mL syringe 60 mg subcut [id number] Qty: 1 2RF Discontinued isosorbide mononitrate 30 [...] Self Care Charges/Coding Visit Charges Inpatient E&M: 05040 Disch Hosp >30min 12/19/22 1623 <Electronically signed by Edwin Kaplan DO> Cosigner Signature (if applicable): CC: Dr. Edwin Kaplan DO; Dr. Mayda Garcia MD~ Signed [facility] Work Phone: Discharge summary Author Maurilio Bradford [facility] Note Date/Time November 14, 2024 4:29 pm [facility] Medical Records Department [address] [place] [address] Discharge Summary 11/14/24 1618 MR#: [id number] Acct: [id number] Name: LACY ALVARADO Rep #:[id number] : 1950 73 From: Maurilio Bradford MD PCP: Dr. Mayda Garcia MD Status:A DM DELFIN [facility] Prov[facility] Date of Admission: 11/13/24 Date of Discharge: 11/14/24 Primary Care Physician: Dr. Mayda Garcia MD Consultations 11/13/24 21:47 Consult: Cardiology Routine Consulting Provider: Eleonora Hernandez Reason for Consult: CP w/ slight trop bump, h/o CAD w/ stents and CABG, eval for stress vs C EMERGENT Consult: No MD Notified: Yes Date Notified: 11/14/24 Time Notified: 06:48 Method of Notification: Text Reason For Visit: CHEST PAIN Diagnosis Discharge Diagnosis (1) Chest pain: Status: Acute Code(s): R07.9 - Chest pain, unspecified Qualifiers: Chest pain type: unspecified Qualified Code(s): R07.9 - Chest pain, unspecified Plan Patient is a 73-year-old female who presented to [facility] ED on 11/13/2024 with chest pain. 1. Chest pain ? Patient was placed on a monitored bed MD ruled out with serial cardiac enzymes. Patient [...] mg/mL subcutaneous syringe (Prolia) 60 mg subcut [id number] bone health #1 mL 01/19/24 gabapentin 300 [...] Neut % (Auto) 55.5, Lymph % (Auto) 35.9,[place] % (Auto) 6.3, Eos % (Auto) 1.7, [...] 230 H, LDL Cholesterol, Calc 162, VLDL Wnopjemdckh70, HDL Cholesterol 52, Cholesterol/HDL Ratio 4.47 Microbiology: Microbiology 11/13/24 22:25 Mucosa - Nose Respiratory Panel (PCR) - Final Radiography Diagnostic Testing: Radiology Impression Chest X-Ray 11/13/24 17:17 IMPRESSION: Mildly prominent interstitial markings could be the result of hypoventilatory change, pulmonary edema, or atypical infection. Reading Location: [id number] D/C Instructions DC O2, CPAP, BIPAP Needs [...] Prolia 60 mg/mL syringe 60 mg subcut [id number] Qty: 1 2RF Referrals / Follow Up: Mayda Garcia MD [Primary Care Provider] - Within 2 Weeks Disposition Disposition (needs filled in before D/C Order can be placed): Home, Self Care Charges/Coding Visit Charges Inpatient E&M: 11169 Disch Hosp >30min 11/14/24 1630 <Electronically signed by Maurilio Bradford MD> Cosigner Signature (if applicable): CC: Dr. Maurilio Bradford MD; Dr. Mayda Garcia MD~ Signed [facility] Work Phone: Evaluation note* Diagnosis Onset Date Resolution Status Osteoporosis acute Cerebrovascular disease leaf stripper shaun Epilepsy, unspecified, not i ntractable, without status epilepticus chronic Occipital neuralgia chronic Cerebrovascular disease leaf stripper shaun Epilepsy, unspecified, not i ntractable, without status epilepticus chronic Occipital neuralgia chronic [facility] Work Phone: Evaluation note* Diagnosis Onset Date Resolution Status Cerebrovascular disease leaf stripper shaun Epilepsy, unspecified, not i ntractable, without status epilepticus chronic Occipital neuralgia chronic BMI 32.0-32.9,adult acute LINA (obstructive sleep apnea) chronic Health care maintenance acut e Right shoulder pain acute Essential (primary) hypertension chronic Seizures chronic Type 2 diabetes mellitus chr onic [facility] Work Phone: Evaluation note* Diagnosis Onset Date Resolution Status Cerebrovascular disease leaf stripper shaun Epilepsy, unspecified, not i ntractable, without status epilepticus chronic Occipital neuralgia chronic BMI 32.0-32.9,adult acute LINA (obstructive sleep apnea) chronic Health care maintenance acut e Right shoulder pain acute Essential (primary) hypertension chronic Seizures chronic Type 2 diabetes mellitus chr onic Cough acute Chest pain acute Intractable pain acute Neck pain acute [facility] Work Phone: Evaluation note* Diagnosis Onset Date Resolution Status Cerebrovascular disease leaf stripper shaun Epilepsy, unspecified, not i ntractable, without [...] stent placement March 222017 chronic Hyperlipidemia chronic [facility] Work Phone: Evaluation note* Diagnosis Onset [...] stent placement March 222017 chronic Hyperlipidemia chronic [facility] Work Phone: Evaluation note* Diagnosis Onset Date Resolution Status Cough acute Chest pain acute Intractable pain acute Neck pain acute Cervical radiculopathy acute Left shoulder pain acute Neck pain acute Left upper extremity numbness acute Essential (primary) hypertension chronic History of coronary artery stent placement March 222017 chronic Hyperlipidemia chronic Obesity acute LINA (obstructive sleep apnea) chronic [facility] Work Phone: Evaluation note* Diagnosis Onset Date Resolution Status Obesity acute LINA (obstructive sleep apnea) chronic Seizures chronic Exposure to COVID-19 virus a cute [facility] Work Phone: Evaluation note* Diagnosis Onset Date Resolution Status Exposure to COVID-19 virus a cute Pain in left upper arm acute Essential (primary) hypertension chronic Seizures chronic Type 2 diabetes mellitus chr onic Osteoporosis acute [facility] Work Phone: Evaluation note* Diagnosis Onset [...] chronic Type 2 diabetes mellitus chr onic [facility] Work Phone: Evaluation note* Diagnosis Onset Date Resolution Status Memory changes acute Epilepsy, unspecified, not i ntractable, without status epilepticus chronic Memory loss acute Epilepsy, unspecified, not i ntractable, without status epilepticus chronic Right hip pain acute Essential (primary) hypertension chronic Type 2 diabetes mellitus chr onic Osteoarthritis of right knee noneactive [facility] Work Phone: Evaluation note* Diagnosis Onset [...] disease acute History of hypertension acut e [facility] Work Phone: Evaluation note* Diagnosis Onset [...] artery stent placement March 222017 chronic Hyperlipidemia [facility] Work Phone: Evaluation note* Diagnosis Onset [...] stent placement March 222017 chronic Hyperlipidemia chronic [facility] Work Phone: Evaluation note* Diagnosis Coronary artery disease due to calcified coronary lesion- Primary Atherosclerotic heart diseas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 angina pectoris documented in this encounter [facility]Evaluation note* Diagnosis CAD in [place] artery- Primary Preoperative clearance Unspecified pre-operative examination Atherosclerotic heart diseas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 angina pectoris documented in this encounter [facility]Evaluation note* Diagnosis Preoperative clearance Unspecified pre-operative examination Atherosclerotic heart diseas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 angina pectoris documented in this encounter [facility]Evaluation note* Diagnosis Coronary artery disease due to calcified coronary lesion- Primary documented in this encounter [facility]Evaluation note* Diagnosis CAD in [place] artery- Primary CAD in [place] artery Coronary artery disease involving coronary bypass graft, unspecified whether angina present, unspecified whether [place] or transplanted heart S/P CABG (coronary artery bypass graft) Postsurgical aortocoronary bypass status documented in this encounter [facility]Evaluation note* Diagnosis Onset Date [...] acute Stroke acute Hyperlipidemia chronic Hypertension [facility] Work Phone: Evaluation note* Diagnosis S/P CABG (coronary artery bypass graft)- Primary Postsurgical aortocoronary bypass status documented in this encounter [facility]* Diagnosis Onset Date Resolution Status [...] acute Essential (primary) hypertension chronic Hyperlipidemia [facility] Work Phone: Evaluation note* Diagnosis Onset [...] bypass graft chronic Hyperlipidemia chronic Hypertension [facility] Work Phone: Evaluation note* Diagnosis Onset [...] Fatigue acute Osteoarthritis of right knee noneactive [facility] Work Phone: Evaluation note* Diagnosis Onset [...] graft chronic Obesity chronic Obstructive sleep apnea leaf stripper shaun Chest wall tenderness chroni c Coronary artery disease leaf stripper shaun Essential (primary) hypertension chronic GERD (gastroesophageal reflux disease) chronic Osteoporosis chronic Rheumatoid arthritis chronic Type 2 diabetes mellitus chr onic [facility] Work Phone: Evaluation note* Diagnosis Onset Date Resolution Status Fatigue acute Fatigue acute Osteoarthritis of right knee noneactive History of coronary artery bypass graft chronic Obesity chronic Obstructive sleep apnea leaf stripper shaun Chest wall tenderness chroni c Coronary artery disease leaf stripper shaun Essential (primary) hypertension chronic GERD (gastroesophageal reflux disease) chronic Osteoporosis chronic Rheumatoid arthritis chronic Type 2 diabetes mellitus chr onic Fatigue acute Abdominal pain chronic [facility] Work Phone: Evaluation note* Diagnosis Onset Date Resolution Status Fatigue acute Fatigue acute Osteoarthritis of right knee noneactive History of coronary artery bypass graft chronic Obesity chronic Obstructive sleep apnea leaf stripper shaun Chest wall tenderness chroni c Coronary artery disease leaf stripper shaun Essential (primary) hypertension chronic GERD (gastroesophageal reflux disease) chronic Osteoporosis chronic Rheumatoid arthritis chronic Type 2 diabetes mellitus chr onic Fatigue acute Abdominal pain chronic Abdominal pain chronic [facility] Work Phone: Evaluation note* Diagnosis Onset Date Resolution Status Fatigue acute Osteoarthritis of right knee noneactive History of coronary artery bypass graft chronic Obesity chronic Obstructive sleep apnea leaf stripper shaun Chest wall tenderness chroni c Coronary artery disease leaf stripper shaun Essential (primary) hypertension chronic GERD (gastroesophageal reflux disease) chronic Osteoporosis chronic Rheumatoid arthritis chronic Type 2 diabetes mellitus chr onic Fatigue acute Abdominal pain chronic Abdominal pain chronic [facility] Work Phone: Evaluation note* Diagnosis Onset Date Resolution Status Fatigue acute Osteoarthritis of right knee noneactive History of coronary artery bypass graft chronic Obesity chronic Obstructive sleep apnea leaf stripper shaun Chest wall tenderness chroni c Coronary artery disease leaf stripper shaun Essential (primary) hypertension chronic GERD (gastroesophageal reflux disease) chronic Osteoporosis chronic Rheumatoid arthritis chronic Type 2 diabetes mellitus chr onic Fatigue acute Abdominal pain chronic Abdominal pain chronic Osteoporosis chronic [facility] Work Phone: History and physical note Author Edwin Kaplan [facility] Note Date/Time November 13, 2024 8:50 pm [facility] Medical Records Department [address] [place] [address] H&P Exam - Hospitalist 11/13/242001 MR#: [id number] Acct: [id number] Name: LACY ALVARADO Rep #:[id number] : 1950 73 From: Edwin martin DO PCP: Dr. Mayda Garcia MD Status:R EG ER Location: ED HPI - General General Date of Service: 11/13/24 Chief Complaint: chest pain HPI Narrative LACY ALVARADO, is a 73 F who presented to [facility] ED on 11/13/2024 with chest pain. Medical history significant for CAD with stenting [id number] and CABG x 4 in December 2022, [...] feeling fine this morning and went to judaism, but shortly after she got home and [...] currently. Will be admitted for further management. [facility] Medical History (Updated 11/13/24 @ 19:58 by [...] FOOT HEEL SPUR Atherosclerotic heart diseas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 angina pectoris Rheumatoid arthritis [...] denosumab 60 mg/mL subcutaneous 60 mg subcut [id number] bone health 01/19/24 Unknown Rx syringe (Prolia) [...] Severe Hives Verified 11/13/24 16:26 Family History Grandmother Alcoholism Cancer Arthritis Mother [...] Neut % (Auto) 55.5, Lymph % (Auto) 35.9,[place] % (Auto) 6.3, Eos % (Auto) 1.7, [...] edema, or atypical infection. Reading Location: [place] Assessment & Plan Assessment/Plan (1) Chest pain: PLAN: Plan Patient is a 73-year-old female who presented to [facility] ED on 11/13/2024 with chest pain. 1. [...] 75 minutes. Charges/Coding Visit Charges Inpatient E&M: 89433 Init Hosp L3 11/13/242049 <Electronically signed by Edwin Kaplan DO> Cosigner Signature (if applicable): CC: Dr. Edwin Kaplan DO; Dr. Mayda Garcia MD~ Signed [facility] Work Phone: Hospital Discharge instructions Additional Instructions Discharge home 01/26/2023, pending appeal, [facility] PT/OT/SN, Front wheeled walker, bedside commode.[facility] Work Phone: Hospital Discharge instructions Additional Instructions EKG normal cardiac workup negative. Chest CT discussed with radiologist no concern for fracture. Follow-up with your doctor. Take medications as prescribed.[facility] Work Phone: Hospital Discharge instructions Additional Instructions Ice to your chest wall to decrease pain and bruising. The doctors saw you yesterday wrote for a narcotic pain medication which she can continuous pickling line pickler from the pharmacy and use. Pain. Follow-up with your doctor if not improving.[facility] Work Phone: Progress note Author Shruthi Costa [facility] Note Date/Time January 26, 2025 12:46pm [facility] [address] [place] [address] OFFICE VISIT Date of Service: 01/26/25 MR#: [id number] Acct: [id number] Name: LACY ALVARADO Rep #: 00 : 1950 Provider: SYDNEY Costa Age/Sex: 74/F [facility] [facility] Status: Signed Intake Vital Signs 01/19/25 14:33 01/23/25 07:16 01/26/25 12:34 Height 5 ft 2 in 5 ft 2 in 5 ft 2 in Weight: 167 lb 8 oz 168 lb BMI 30.6 30.7 BP 154/82 H 144/83 H Respiration 16 16 Pulse 84 78 Temp 97.8 F 97.9 F Temp Source Temporal Temporal Pulse Oximetry (%) 96 98 Oxygen Delivery Method room air room air Intake Visit Reasons: 1 wk fu Chief Complaint: abdominal pain Car Deliverer Required: No Accompanied by: Self Is patient in pain?: No Allergies prednisone Adverse Reaction (Severe, Verified 01/23/25 15:21) Hives Have you fallen in the past year?: No PFSH Medical History Keloid scar of skin Vertigo [...] FOOT HEEL SPUR Atherosclerotic heart diseas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 angina pectoris Rheumatoid arthritis Diabetes type 2, controlled Hives Seasonal allergies Hyperlipidemia Chronic diastolic CHF (congestive heart failure) Surgical History History of coronary artery bypass graft History of cardiac catheterization History of left heart catheterization (09/20/18) History of coronary artery stent placement (03/22/18) History of carpal tunnel surgery History of section H/O: hysterectomy Family History Grandmother Alcoholism Cancer Arthritis Mother Alcoholism Diabetes blood clots Hypertension Grandfather Heart disease Sister Thyroid disorder Other Breast cancer Cervical cancer Colon cancer Social History household members: none housing: apartment Smoking Status: Never smoker second hand exposure: No alcohol intake: current alcohol intake frequency: holidays/special occasions only substance use type: does not use what type of physical activity do you participate in: none HPI HPI Chief Complaint: abdominal pain Details: OV 01/19/2025 74-year-old female with a history of diabetes mellitus, hyperlipidemia, and previous heart surgery presenting with abdominal pain and fatigue. The abdominaldiscomfort, characterized as burning and cramping, started suddenly and worsens with food intake. There is also associated constipation with decreased bowel movement frequency exacerbating the discomfort. I have ordered labs and KUB to be completed today. She will start pantoprazole 40mg daily and Miralax BID. Patient Instructions: Miralax BID Labs now KUB now Pantoprazole once daily Follow-up in 1 week EGD 09/30/2023 - Normal esophagus. - Erythematous mucosa in the gastric body. Biopsied. - Erythematous duodenopathy. Biopsied. COLON 09/30/2023 - Two 5 mm polyps in the sigmoid colon and at the hepatic flexure, removed with a jumbo cold forceps. Resected and retrieved. - Congested mucosa in the cecum. Biopsied. - The examination was otherwise normal on direct and retroflexion views. Hemoglobin is stable at 11.8. B12 is within normal limits. KUB reveals a moderate amount of stool in the colon. No obstruction. How are her bowels moving and abdominal pain with pantoprazole 40 mg daily and MiraLAX? Miralax BID - two days ago a lot of diarrhea and no BM yesterday and very small stool today Pantoprazole once daily - She is continuing to experience constipation, small stools, incomplete evacuation -Abdominal pain without much improvement -Constipation has been a chronic issue for her -Denies any weight loss -Leaving for a cruise the end of February -Denies any bleeding ROS Const Constitutional: Positive for fatigue; No fever(s) or weight change ENT ENT: No difficulty swallowing Gastro GI: Positive for abdominal pain, bloating and constipation; No belching, change in bowel habits, change in stool character, coffee ground emesis, cramping, diarrhea, heartburn, difficulty swallowing, feeling full early, excessive flatus, incontinent of stools, Vomiting blood/hematemesis, Blood in stool, loose stools, Black,tarry stools, nausea/dyspepsia, pain with swallowing, vomiting or other Musc Musculoskeletal: Positive for back pain and Arthritis; No joint pain Skin Skin: No yellowing of the eye or itchy eyes Neuro Neurology: Positive for dizziness and seizures Psych Psychiatric: No anxiety and No depression Endo Endocrine: Positive for fatigue; No weight change Aller/Imm Allergy/Immunologic: No itchy eyes True/Lymp Hematologic/Lymphatic: No easy bleeding or easy bruising Exam Const General: cooperative, healthy appearing, no acute distress and well developed Nutritional Appearance: well nourished and obese Orientation: alert and oriented x3 HENSD Head: normocephalic Ears: hearing grossly normal bilaterally Mouth: moist mucous membranes Teeth and gingiva: dentition normal Eyes Conjunctivae: conjunctivae normal Sclera: sclerae normal Neck Neck: normal visual inspection, full ROM and trachea midline Resp Effort & Inspection: normal respiratory effort, able to speak in complete sentences and symmetric chest movement Neuro General: patient alert and patient oriented x3 Cranial Nerves: other (CN's grossly intact, non-focal exam) Cognition: normal cognition Speech: speech normal Gait: normal gait Psych Appearance: grossly normal and well kempt Affect: normal affect Attitude: cooperative Thought Process: normal Assessment and Plan Assessment and Plan (1) Epigastric pain: Status: Acute (2) Constipation: Status: Acute Medications: New linaclotide (Linzess) take once daily every morning on an empty stomach 290 mcg PO QAM 90 caps 1RF Discontinued polyethylene glycol 3350 (Miralax) Discontinued Reason: Order Completed 17 grams PO BID 850 grams 3RF constipation hydrocodone-acetaminophen 5-325 mg Discontinued Reason: Pt no longer taking 1 TAB PO Q6H PRN 3 days PRN 10 TABLETS 0RF Pain S20.219A - Contusion of unspecified front wall of thorax, initial encounter Plan 74-year-old female presents for follow-up of abdominal pain and constipation. She denies any significant improvement with MiraLAX twice daily and kqojjvdkvcew36 mg once daily. KUB revealed moderate fecal retention without obstruction. Ihave recommended a high-fiber diet with increased water intake. She will discontinue MiraLAX and start Linzess 290 mcg once daily. She will follow-up inthe office in 2 weeks. Patient Instructions: Discontinue MiraLAX Continue pantoprazole Start Linzess 290 mcg once daily, take every morning on an empty stomach 30 minutes before first meal Squatty potty Kiwi fruit or pear juice High-fiber diet with increased water intake Coding Level of Care Code Off vis,est,level 4 Diagnoses Epigastric pain R10.13 Constipation K59.00 Clinical Quality Measures Falls Risk Screening/Assistive Devices Have you fallen in the past year?: No Smoking Screening Smoking Status: Never smoker 01/26/25 1248 <Electronically signed by Shruthi GRIMES> Date _ Shruthi JOHNSONC Cosigner Signature: Date (if applicable) CC: ~ [facility] Work Phone: Reason for referral (narrative)No reason for referral information [facility]: Summary Purpose Family History [...] No October 25, 2021 2:03pm Power of Rubber Washer No October 25 2 2:03pm Advance Directive Response Recorded Date/ Time Name of Medical Power of Rubber Washer bhupinder barakat November 28, 2021 7:50pm Advance Directives No September 26 1:14pm Living Will Yes November 28, 2021 7:50pm Power of Rubber Washer Yes November 28 2 7:50pm Advance Directive Response Recorded Date/ Time Name of Medical Power of Rubber Washer bhupinder barakat November 28, 2021 7:50pm Advance Directives No September 26 1:14pm Living Will No December 17 3:55am Power of Rubber Washer No December 17 3:55am Advance Directive Response Recorded Date/ Time Name of Medical Power of Rubber Washer bhupinder barakat November 28, 2021 7:50pm Name of Medical Power of Rubber Washer bhupinder barakat January 02, 2022 12:50pm Advance Directives No September 26 1:14pm Living Will Yes January 02 12:50pm Power of Rubber Washer Yes January 02, 2022 12:50pm Advance Directive Response Recorded Date/ Time Name of Medical Power of Rubber Washer bhupinder barakat November 28, 2021 6:50pm Name of Medical Power of Rubber Washer bhupinder barakat January 02, 2022 11:50am Advance Directives No September 26 12:14pm Living Will No March 14 5:43pm Power of Rubber Washer No March 14, 2022 5:43pm Advance Directive Response Recorded Date/ Time Name of Medical Power of Rubber Washer bhupinder barakat January 02, 2022 11:50am Advance Directives No September 26 12:14pm Living Will No March 29 10:41am Power of Rubber Washer No March 29, 2022 10:41am Advance Directive Response Recorded Date/ Time Advance Directives No September 26 12:14pm Living Will No March 29 10:41am Power of Rubber Washer No March 29, 2022 10:41am Advance Directive Response Recorded Date/ Time Name of Medical Power of Rubber Washer BHUPINDER MARTÍNEZ June 06, 2022 10:51am Advance Directives No September 26 12:14pm Living Will No June 07 6:10pm Power of Rubber Washer No June 07, 2022 6:10pm Advance Directive Response Recorded Date/ Time Name of Medical Power of Rubber Washer BHUPINDER MARTÍNEZ June 06, 2022 11:51am Name of Medical Power of Rubber Washer Duke Barakat August 13, 2022 10:00pm Advance Directives No September 26 1:14pm Living Will Yes August 13, 2022 10:00pm Power of Rubber Washer Yes August 13 10:00pm Advance Directive Response Recorded Date/ Time Name of Medical Power of Rubber Washer Duke Barakat August 13, 2022 10:00pm Advance Directives No September 26 1:14pm Living Will Yes August 13, 2022 10:00pm Power of Rubber Washer Yes August 13 10:00pm Advance Directive Response Recorded Date/ Time Name of Medical Power of Rubber Washer Duke Barakat August 13, 2022 10:00pm Advance Directives No December 31, 2020 12:33pm Living Will Yes August 13, 2022 10:00pm Power of Rubber Washer Yes August 13 10:00pm Advance Directive Response Recorded Date/ Time Name of Medical Power of Rubber Washer BHUPINDER SENIOR December 18, 2022 5:26am Advance Directives No December 31, 2020 12:33pm Living Will Yes December 18 5:26am Power of Rubber Washer Yes December 18, 023 5:26am Advance Directive Response Recorded Date/ Time Name of Medical Power of Rubber Washer BHUPINDER SENIOR December 18, 2022 5:26am Advance Directives No December 31, 2020 12:33pm Living Will Yes December 18 10:41am Power of Rubber Washer No December 18, 2 023 10:41am Latest Code Status on File Code Status Date Activated Date Inactivated Comments Full Code 01/01/2023 5:45 AM Latest Code Status on File Code Status Date Activated Date Inactivated Comments Full Code 01/01/2023 5:45 AM 01/11/2023 4:53 PM Healthcare Agents on File Name Relationship Healthcare Agent Relationshi p Communication Bhupinder Gomez [facility] Health Care Agent Advance Directive Response Recorded Date/ Time Name of Medical Power of Rubber Washer BHUPINDER SENIOR December 18, 2022 5:26am Name of Medical Power of Rubber Washer yvette Garcia January 13, 2023 2:24pm Advance Directives No December 31, 2020 12:33pm Living Will Yes January 13, 2023 2:24pm Power of Rubber Washer Yes January 2:24pm Documents on File Type Date Recorded 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 Expl anation Advance Directives and Livin g Will 01/12/2023 1:40 PM Latest Code Status on File Code Status Date Activated Date Inactivated Comments Full Code 01/01/2023 5:45 AM 01/11/2023 4:53 PM Healthcare Agents on File Name Relationship Healthcare Agent [facility] p Communication Bhupinder Ascencio Health Care Agent Advance Directive Response Recorded Date/ Time Advance Directives No February 02, 2023 11:35am Living Will Yes February 02 11:35am Power of Rubber Washer Yes February 02 11:35am Name of Medical Power of Rubber Washer BHUPINDER SENIOR December 18, 2022 5:26am Name of Medical Power of Rubber Washer Bhupinder Starkey, n iece January 13, 2023 2:24pm Advance Directive Response Recorded Date/ Time Advance Directives No February 02, 2023 10:35am Living Will Yes February 02 10:35am Power of Rubber Washer Yes February 02 10:35am Name of Medical Power of Rubber Washer BHUPINDER SENIOR December 18, 2022 4:26am Name of Medical Power of Rubber Washer Bhupinder Starkey, n iece January 13, 2023 1:24pm Advance Directive Response Recorded Date/ Time Advance Directives No February 02, 2023 10:35am Living Will Yes February 02 10:35am Power of Rubber Washer Yes February 02 10:35am Advance Directive Response Recorded Date/ Time Advance Directives on File No 2023 9:39am Advance Directives No February 02, 2023 10:35am Living Will Yes June 01 9:57am Power of Rubber Washer Yes June 01, 2023 9:39am Advance Directive Response Recorded Date/ Time Advance Directives on File No 2023 10:39am Advance Directives No February 02, 2023 11:35am Living Will Yes June 01 10:57am Power of Rubber Washer Yes June 01, 2023 10:39am Advance Directive Response Recorded Date/ Time Living Will Yes February 02 11:35am Power of Rubber Washer Yes February 02 11:35am Living Will Yes November 15, 2023 3:30pm Power of Rubber Washer No November 14 3:30pm Living Will No July 14, 2024 5:08pm Power of Rubber Washer No July 14 5:08pm Advance Directives No February 02, 2023 11:35am Advance Directive Response Recorded Date/ Time Living Will Yes February 02 11:35am Power of Rubber Washer Yes February 02 11:35am Living Will Yes November 15, 2023 3:30pm Power of Rubber Washer No November 14 3:30pm Living Will No July 14, 2024 5:08pm Power of Rubber Washer No July 14 5:08pm Living Will No July 15, 2024 1:25pm Power of Rubber Washer No July 15 1:25pm Advance Directives No February 02, 2023 11:35am Advance Directive Response Recorded Date/ Time Living Will Yes November 15, 2023 3:30pm Do you have a Healthcare Power of Rubber Washer? No November 15, 2023 3:30pm Living Will No July 14, 2024 5:08pm Do you have a Healthcare Power of Rubber Washer? No July 14, 2024 5:08pm Living Will No July 15, 2024 1:25pm Do you have a Healthcare Power of Rubber Washer? No July 15, 2024 1:25pm Do you have a Healthcare Power of Rubber Washer? No September 16, 2024 3:51pm Advance Directives No February 02, 2023 11:35am Advance Directive Response Recorded Date/ Time Living Will No July 14, 2024 5:08pm Do you have a Healthcare Power of Rubber Washer? No July 14, 2024 5:08pm Living Will No July 15, 2024 1:25pm Do you have a Healthcare Power of Rubber Washer? No July 15, 2024 1:25pm Do you have a Healthcare Power of Rubber Washer? No September 16, 2024 3:51pm Advance Directives No February 02, 2023 11:35am Advance Directive Response Recorded Date/ Time Do you have a Healthcare Power of Rubber Washer? No September 16, 2024 3:51pm Do you have a Healthcare Power of Rubber Washer? Yes November 13, 2024 4:26pm Name of Medical Power of Rubber Washer Aleksandr Lucas November 13, 2024 4:26pm Advance Directives No February 02, 2023 11:35am Advance Directive Response Recorded Date/ Time Do you have a Healthcare Power of Rubber Washer? No September 16, 2024 3:51pm Do you have a Healthcare Power of Rubber Washer? No November 13, 2024 9:42pm Name of Medical Power of Rubber Washer Aleksandr Lucas November 13, 2024 4:26pm Advance Directives No February 02, 2023 11:35am Advance Directive Response Recorded Date/ Time Do you have a Healthcare Power of Rubber Washer? No November 13, 2024 9:42pm Name of Medical Power of Rubber Washer Aleksandr Lucas November 13, 2024 4:26pm Advance [...] ARM RT ARM PAIN SCREENING general illness [facility] ER FU CHEST PAIN CHEST [...] ARM RT ARM PAIN SCREENING general illness [facility] ER FU CHEST PAIN CHEST PAIN CHEST PAIN CHEST PAIN [facility] FU 1 Y FU Reason [...] ARM RT ARM PAIN SCREENING general illness [facility] ER FU CHEST PAIN CHEST PAIN CHEST PAIN CHEST PAIN CHEST PAIN [facility] FU 1 Y FU CERVICAL [...] ARM RT ARM PAIN SCREENING general illness [facility] ER FU CHEST PAIN CHEST PAIN CHEST PAIN CHEST PAIN CHEST PAIN [facility] FU 1 Y FU CERVICAL RADICULOPATHY. RX HERE 4 M FU SEIZURE Reason for Visit Cough Chest pain Intractable pain Neck pain Cervical radiculopathy Left shoulder pain Neck pain Left upper extremity numbness Essential (primary) hypertension History of coronary artery stent placement Hyperlipidemia Obesity LINA (obstructive sleep apnea) Chief Complaint RT ARM PAIN SCREENING general illness [facility] ER FU CHEST PAIN CHEST PAIN CHEST PAIN CHEST PAIN CHEST PAIN [facility] FU 1 Y FU CERVICAL RADICULOPATHY. RX HERE 4 M FU SEIZURE FALL Reason for Visit Cough Chest pain Intractable pain Neck pain Cervical radiculopathy Left shoulder pain Neck pain Left upper extremity numbness Essential (primary) hypertension History of coronary artery stent placement Hyperlipidemia Obesity LINA (obstructive sleep apnea) Chief Complaint CERVICAL RADICULOPAT HY. RX HERE 4 M FU SEIZURE FALL [facility] ER FU Wants Covid Test LABSPEC Reason for Visit Obesity LINA (obstructive sleep apnea) Seizures Exposure to COVID-19 virus Chief Complaint CERVICAL RADICULOPAT HY. RX HERE 4 M FU SEIZURE FALL H ER FU Wants Covid Test LABSPEC seizure [...] 9 :26am Type 2 diabetes mellitus May 20 9:26am Fatigue July 05, 2024 10:4 4am [...] 8:51a m Atherosclerotic 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 September 19, [...] 8:51a m Atherosclerotic 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 September 19, [...] 8:51a m Atherosclerotic 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 September 19, [...] hypertension September 10:36am Keloid scar of skin May 21st, 2025 10:36 am Rheumatoid arthritis September 21, 2024 [...] 8:51a m Atherosclerotic 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 September 19, [...] 8:51a m Atherosclerotic 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 September 19, [...] 8:51a m Atherosclerotic 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 September 19, [...] 8:51a m Atherosclerotic 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 September 19, [...] 8:51a m Atherosclerotic 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 September 19, [...] 2 diabetes mellitus November 16, 2024 10:53am Chief Complaint Admit Date B12 October 03, 2024 11:04 am sleep [...] M FU November 16, 2024 10:5 3am Stomach Pain January 19, 2025 2:18pm OVERDUE FOR 8 W FU January 23, 2025 3:07pm 1 wk fu January 26, 2025 12:08pm B12 inject January 30, 2025 2:00pm Reason for Visit Admit Date Fatigue October 03, 2024 11:04 am Epilepsy, [...] 2 diabetes mellitus November 16, 2024 10:53am Anemia January 19, 2025 2:18pm Constipation January 19, 2025 2:18pm Epigastric pain January 19, 2025 2:18pm Nausea January 19, 2025 2:18pm Chronic diastolic CHF (congestive heart failure) January 23, 2025 3:07pm Essential (primary) hypertension Septemb er 2024 3:07pm History of coronary artery bypass graft January 23, 2025 3:07pm Hyperlipidemia January 23, 2025 3:07pm Constipation January 26, 2025 12:08pm Epigastric pain January 26, 2025 12:08pm Fatigue January 30, 2025 2:00pm Chief Complaint Admit Date sleep apnea October 20, 2024 7:51 pm 6 M FU November 07, 2024 11:01 am INT LAB ORDERS November 11, 2024 2:34 pm LINA November 11, 2024 3:53 pm CHEST PAIN November 13, 2024 8:02 pm CHEST PAIN November 14, 2024 8:01 am CHEST PAIN November 14, 2024 10:0 8am 3 M FU November 16, 2024 10:5 3am Stomach Pain January 19, 2025 2:18pm OVERDUE FOR 8 W FU January 23, 2025 3:07pm 1 wk fu January 26, 2025 12:08pm B12 inject January 30, 2025 2:00pm Reason for Visit Admit Date Epilepsy, unspecified, not i ntractable, without status [...] 2 diabetes mellitus November 16, 2024 10:53am Anemia January 19, 2025 2:18pm Constipation January 19, 2025 2:18pm Epigastric pain January 19, 2025 2:18pm Nausea January 19, 2025 2:18pm Chronic diastolic CHF (congestive heart failure) January 23, 2025 3:07pm Essential (primary) hypertension Septemb 2024 3:07pm History of coronary artery bypass graft January 23, 2025 3:07pm Hyperlipidemia January 23, 2025 3:07pm Constipation January 26, 2025 12:08pm Epigastric pain January 26, 2025 12:08pm Fatigue January 30, 2025 2:00pm Reason for Referral Specialty Diagnoses / Procedures Referred By Contmacario t Referred To Contact Diagnoses S/P CABG (coronary artery bypass graft) Kassy Tabares, MARKETING TECHNOLOGY COORDINATOR - TREE TAPPING LABORER [address] [facility] [address] [place] [address] Referral ID Status Reason Start Date Expiration Date Visits Re quested Visits Authorized [id number] Closed 1 1 Additional Source Comments INFORMATION SOURCE (unrecogn ized section and content) DATE CREATED AUTHOR 10/27/2017 [facility] DATE CREATED AUTHOR AUTHOR'S ORGANIZ ATION 10/27/2017 [facility] DATE CREATED AUTHOR AUTHOR'S ORGANIZ ATION 06/21/2018 [facility] DATE CREATED AUTHOR AUTHOR'S ORGANIZ ATION 01/07/2023 [facility] DATE CREATED AUTHOR AUTHOR'S ORGANIZ ATION 03/10/2025 [facility] Goals (unrecognized section and content) [...] MD Primary Care Provider Active Dr. Mikey aGrcia DO Attending Provider, Emergency P rovider Active [...] Active Dr. Edwin Kaplan DO Admit Provider, Other Pro vider Active Dr. Bhanu Milian MD Attending Provider, Other Provid er Active Team Status: Inactive Member Role Status Dates Dr. Mayda Garcia MD Primary Care Provider Active Dr. Turner Armendariz DO Emergency Provider Active Dr. Edwin Kaplan DO Admit Provider, Attending Provider Active Dr. Bhanu Milian MD Other Provider Active Plant Supervisor Relationship Specialty Start Date End Date Mayda Garcia [address] [place] [address] PCP - General Internal Medicine 12/23/22 Plant Supervisor Relationship Specialty Start Date End Date Mayda Garcia [address] [place] [address] PCP - General Internal Medicine 12/23/22 Plant Supervisor Relationship Specialty Start Date End Date Mayda Garcia [address] [place] [address] PCP - General Internal Medicine 12/23/22 Plant Supervisor Relationship Specialty Start Date End Date Mayda Garcia [address] [place] [address] PCP - General Internal Medicine 12/23/22 Plant Supervisor Relationship Specialty Start Date End Date Mayda Garcia [address] [place] [address] PCP - General Internal Medicine 12/23/22 Plant Supervisor Relationship Specialty Start Date End Date Mayda Garcia [address] [place] [address] PCP - General Internal Medicine 12/23/22 Team Status: Inactive Member Role Status Dates Dr. Mayda Garcia MD Primary Care Provider Active Dr. Robbin Carlos MD Admit Provider, Attending Provid er Active Plant Supervisor Relationship Specialty Start Date End Date Mayda Garcia [address] [place] [address] PCP - General Internal Medicine 12/23/22 Team Status: Inactive Member Role Status Dates Dr. Mayda Garcia MD Primary Care Provider Active Dr. Pepe Ruiz MD Attending Provider, Referring Provider Active Team Status: Inactive Member Role Status Dates Dr. Mayda Garcia MD Primary Care Provider, Refer ring Provider Active Carlos Bravo APPRAISER AUDITOR, APPRAISER AUDITOR-C Attending Provider Active Team Status: Inactive Member Role Status Dates Dr. Mayda Garcia MD Primary Care Provider Active Carlos Bravo APPRAISER AUDITOR, APPRAISER AUDITOR-C Attending Provider, Referring Pro vider Active Team Status: Active Member Role Status Dates Dr. Mayda Garcia MD Primary Care Provider Active Dr. Winston Johnson MD Attending Provider Active Team Status: Inactive Member Role Status Dates Dr. Mayda Garcia MD Primary Care Provider, Refer ring Provider Active Vanita Venegas APPRAISER AUDITOR, APPRAISER AUDITOR-C Attending Provider Active Team Status: Active Member Role Status Dates Dr. Mayda Garcia MD Primary Care Provider Active Dr. Winston Johnson MD Attending Provider, Referring Pro vider Active Team Status: Inactive Member Role Status Dates Dr. Mayda Garcia MD Primary Care Provider Active Vanita Venegas APPRAISER AUDITOR, APPRAISER AUDITOR-C Attending Provider, Referrin g Provider Active Team [...] MD Primary Care Provider Active Vanita Venegas APPRAISER AUDITOR, APPRAISER AUDITOR-C Attending Provider, Referrin g Provider Active Team [...] 2024 End: April 20, 2024 Vanita Venegas APPRAISER AUDITOR, APPRAISER AUDITOR-C Attending Provider Active Start: April 20, 2024 End: April 20, 2024 Vanita Venegas APPRAISER AUDITOR, APPRAISER AUDITOR-C Referring Provider Active Start: April 20, 2024 [...] Active Start: April 25, 2024 Vanita Venegas APPRAISER AUDITOR, APPRAISER AUDITOR-C Referring Provider Active Start: April 25, 2024 Vanita Venegas APPRAISER AUDITOR, APPRAISER AUDITOR-C Other Provider Active Start: April 25, 2024 [...] 2024 End: September 28, 2024 Vanita Venegas APPRAISER AUDITOR, APPRAISER AUDITOR-C Attending Provider Active Start: September 28, 2024 [...] 2024 End: October 20, 2024 Vanita Venegas APPRAISER AUDITOR, APPRAISER AUDITOR-C Attending Provider Active Start: October 20, 2024 End: October 20, 2024 Vanita Venegas APPRAISER AUDITOR, APPRAISER AUDITOR-C Referring Provider Active Start: October 20, 2024 [...] 2024 End: September 28, 2024 Vanita Venegas APPRAISER AUDITOR, APPRAISER AUDITOR-C Attending Provider Active Start: September 28, 2024 [...] 2024 End: October 20, 2024 Vanita Venegas APPRAISER AUDITOR, APPRAISER AUDITOR-C Attending Provider Active Start: October 20, 2024 End: October 20, 2024 Vanita Venegas APPRAISER AUDITOR, APPRAISER AUDITOR-C Referring Provider Active Start: October 20, 2024 [...] 2024 End: September 28, 2024 Vanita Venegas APPRAISER AUDITOR, APPRAISER AUDITOR-C Attending Provider Active Start: September 28, 2024 [...] 2024 End: October 20, 2024 Vanita Venegas APPRAISER AUDITOR, APPRAISER AUDITOR-C Attending Provider Active Start: October 20, 2024 End: October 20, 2024 Vanita Venegas APPRAISER AUDITOR, APPRAISER AUDITOR-C Referring Provider Active Start: October 20, 2024 [...] Active Start: November 11, 2024 Vanita Venegas APPRAISER AUDITOR, APPRAISER AUDITOR-C Attending Provider Active Start: November 11, 2024 Vanita Venegas APPRAISER AUDITOR, APPRAISER AUDITOR-C Referring Provider Active Start: November 11, 2024 Team Status: Active Member Role/Relationship Status Dates Dr. Mayad Garcia MD Primary Care Provider Active Start: [...] End: November 14, 2024 Dr. Edwin Kaplan DO Admit Provider Active Start: November 13, 2024 End: November 14, 2024 Dr. Edwin Kaplan DO Other Provider Active Start: November 13, 2024 [...] 2024 End: November 11, 2024 Vanita Venegas APPRAISER AUDITOR, APPRAISER AUDITOR-C Attending Provider Active Start: November 11, 2024 End: November 11, 2024 Vanita Venegas APPRAISER AUDITOR, APPRAISER AUDITOR-C Referring Provider Active Start: November 11, 2024 End: November 11, 2024 Team Status: Active Member Role/Relationship Status Dates Dr. Mayda Garcia MD Primary care physician Activ e Team Status: Inactive Member Role/Relationship Status Dates Dr. Mayda Garcia MD Primary care physician Activ e Start: October 03, 2024 End: October 03, 2024 Dr. Pepe Ruiz MD Attending physician Active Start: October 03, 2024 End: October 03, 2024 Dr. Pepe Ruiz MD Referring Provider Active Start: October 03, 2024 End: October 03, 2024 Team Status: Inactive Member Role/Relationship Status Dates Dr. Mayda Garcia MD Primary care physician Activ e Start: October 20, 2024 End: October 20, 2024 Vanita Venegas APPRAISER AUDITOR, APPRAISER AUDITOR-C Attending physician Active Start: October 20, 2024 End: October 20, 2024 Vanita Venegas APPRAISER AUDITOR, APPRAISER AUDITOR-C Referring Provider Active Start: October 20, 2024 End: October 20, 2024 Team Status: Inactive Member Role/Relationship Status Dates Dr. Mayda Garcia MD Primary care physician Activ e Start: November 07, 2024 End: November 07, 2024 Dr. Pepe Ruiz MD Attending physician Active Start: November 07, 2024 End: November 07, 2024 Dr. Pepe Ruiz MD Referring Provider Active Start: November 07, 2024 End: November 07, 2024 Team Status: Inactive Member Role/Relationship Status Dates Dr. Mayda Garcia MD Primary care physician Activ e Start: November 11, 2024 End: November 11, 2024 Dr. Pepe Ruiz MD Attending physician Active Start: November 11, 2024 End: November 11, 2024 Dr. Pepe Ruiz MD Referring Provider Active Start: November 11, 2024 End: November 11, 2024 Team Status: Inactive Member Role/Relationship Status Dates Dr. Mayda Garcia MD Primary care physician Activ e Start: November 11, 2024 End: November 11, 2024 Vanita Venegas APPRAISER AUDITOR, APPRAISER AUDITOR-C Attending physician Active Start: November 11, 2024 End: November 11, 2024 Vanita Venegas APPRAISER AUDITOR, APPRAISER AUDITOR-C Referring Provider Active Start: November 11, 2024 End: November 11, 2024 Team Status: Inactive Member Role/Relationship Status Dates Dr. Mayda Garcia MD Primary care physician Activ e Start: November 13, 2024 End: November 14, 2024 Dr. Turner Armendariz DO Emergency Departmen t Physician Active Start: November 13, 2024 End: November 14, 2024 Dr. Edwin Kaplan DO Admitting physician Active Start: November 13 End: November 14, 2024 Dr. Edwin Kaplan DO Nurse Practitioner Active Start: November 13 End: November 14, 2024 Dr. Eleonora Hernandez MD Nurse Practitioner Active S tart: November 13, 2024 End: November 14, 2024 Dr. Maurilio Bradford MD Attending physician Active Start: November 13, 2024 End: November 14, 2024 Team Status: Active Member Role/Relationship Status Dates Dr. Mayda Garcia MD Primary care physician Activ e Start: November 14, 2024 Dr. Turner Armendariz DO Emergency Departmen t Physician Active Start: November 14, 2024 Dr. Edwin Kaplan DO Admitting physician Active Start: November 14 Dr. Edwin Kaplan DO Nurse Practitioner Active Start: November [address] Dr. Eleonora Hernandez MD Nurse Practitioner Active S tart: November 14, 2024 Dr. Maurilio Bradford MD Nurse Practitioner Active Start: November 14, 2024 Dr. Aleksandr Salinas MD Attending physician Active Start: November 14, 2024 Team Status: Active Member Role/Relationship Status Dates Dr. Mayda Garcia MD Primary care physician Activ e Start: November 14, 2024 Dr. Turner Armendariz DO Emergency Departmen t Physician Active Start: November 14, 2024 Dr. dEwin Kaplan DO Admitting physician Active Start: November 14 Dr. Edwin Kaplan DO Nurse Practitioner Active Start: November [address] Dr[address] Eleonora Hernandez MD Nurse Practitioner Active S tart: November 14, 2024 Dr. Maurilio Bradford MD Attending physician Active Start: November 14, 2024 Dr. Maurilio Bradford MD Nurse Practitioner Active Start: November 14, 2024 Team Status: Inactive Member Role/Relationship Status Dates Dr. Mayda Garcia MD Primary care physician Activ e Start: November 16, 2024 End: November 16, 2024 Dr. Mayda Garcia MD Attending physician Active Start: November 16, 2024 End: November 16, 2024 Dr. Mayda Garcia MD Referring Provider Active Start: November 16, 2024 End: November 16, 2024 Team Status: Inactive Member Role/Relationship Status Dates Dr. Mayda Garcia MD Primary care physician Activ e Start: January 19, 2025 End: January 19, 2025 RENE Avalos Attending physician Active S tart: January 19, 2025 End: January 19, 2025 ALEX StoutC Referring Provider Active Start: January 19, 2025 End: January 19, 2025 Team Status: Inactive Member Role/Relationship Status Dates Dr. Mayda Garcia MD Primary care physician Activ e Start: January 19, 2025 End: January 19, 2025 Dr. Mayda Garcia MD Referring Provider Active Start: January 19, 2025 End: January 19, 2025 ALEX StoutC Attending physician Active Start: January 19, 2025 End: January 19, 2025 Team Status: Inactive Member Role/Relationship Status Dates Dr. Mayda Garcia MD Primary care physician Activ e Start: January 23, 2025 End: January 23, 2025 Dr. Mayda Garcia MD Referring Provider Active Start: January 23, 2025 End: January 23, 2025 Suzi Appiah NP APPRAISER AUDITOR-C Attending physician Active Start: January 23, 2025 End: January 23, 2025 Team Status: Inactive Member Role/Relationship Status Dates Dr. Mayda Garcia MD Primary care physician Activ e Start: January 26, 2025 End: January 26, 2025 Dr. Mayda Garcia MD Referring Provider Active Start: January 26, 2025 End: January 26, 2025 ALEX StoutC Attending physician Active Start: January 26, 2025 End: January 26, 2025 Team Status: Inactive Member Role/Relationship Status Dates Dr. Mayda Garcia MD Primary care physician Activ e Start: January 30, 2025 End: January 30, 2025 Dr. Mayda Garcia MD Referring Provider Active Start: January 30, 2025 End: January 30, 2025 Dr. Pepe Ruiz MD Attending physician Active Start: January 30, 2025 End: January 30, 2025 Team Status: Inactive Member Role/Relationship Status Dates Dr. Mayda Garcia MD Primary care physician Activ e Start: October 20, 2024 End: October 20, 2024 Vanita Venegas APPRAISER AUDITOR, APPRAISER AUDITOR-C Attending physician Active Start: October 20, 2024 End: October 20, 2024 Vanita Venegas APPRAISER AUDITOR, APPRAISER AUDITOR-C Referring Provider Active Start: October 20, 2024 End: October 20, 2024 Team Status: Inactive Member Role/Relationship Status Dates Dr. Mayda Garcia MD Primary care physician Activ e Start: November 07, 2024 End: November 07, 2024 Dr. Ppee Ruiz MD Attending physician Active Start: November 07, 2024 End: November 07, 2024 Dr. Pepe Ruiz MD Referring Provider Active Start: November 07, 2024 End: November 07, 2024 Team Status: Inactive Member Role/Relationship Status Dates Dr. Mayda Garcia MD Primary care physician Activ e Start: November 11, 2024 End: November 11, 2024 Dr. Pepe Ruiz MD Attending physician Active Start: November 11, 2024 End: November 11, 2024 Dr. Pepe Ruiz MD Referring Provider Active Start: November 11, 2024 End: November 11, 2024 Team Status: Inactive Member Role/Relationship Status Dates Dr. Mayda Garcia MD Primary care physician Activ e Start: November 11, 2024 End: November 11, 2024 Vanita Venegas APPRAISER AUDITOR, APPRAISER AUDITOR-C Attending physician Active Start: November 11, 2024 End: November 11, 2024 Vanita Venegas APPRAISER AUDITOR, APPRAISER AUDITOR-C Referring Provider Active Start: November 11, 2024 End: November 11, 2024 Team Status: Inactive Member Role/Relationship Status Dates Dr. Mayda Garcia MD Primary care physician Activ e Start: November 13, 2024 End: November 14, 2024 Dr. Turner Armendariz , DO Emergency Departmen t Physician Active Start: November 13, 2024 End: November 14, 2024 Dr. Edwin Kaplan DO Admitting physician Active Start: November 13 End: November 14, 2024 Dr. Edwin Kpalan DO Nurse Practitioner Active Start: November 13 End: November 14, 2024 Dr. Eleonora Hernandez MD Nurse Practitioner Active S tart: November 13, 2024 End: November 14, 2024 Dr. Maurilio Bradford MD Attending physician Active Start: November 13, 2024 End: November 14, 2024 Team Status: Active Member Role/Relationship Status Dates Dr. Mayda Garcia MD Primary care physician Activ e Start: November 14, 2024 Dr. Turner Armendariz DO Emergency Departmen t Physician Active Start: November 14, 2024 Dr. Edwin Kaplan DO Admitting physician Active Start: November 14 Dr. Edwin Kaplan DO Nurse Practitioner Active Start: November 14 Dr. Eleonora Hernandez MD Nurse Practitioner Active S tart: November 14, 2024 Dr. Maurilio Bradford MD Nurse Practitioner Active Start: November 14, 2024 Dr. Aleksandr Salinas MD Attending physician Active Start: November 14, 2024 Team Status: Active Member Role/Relationship Status Dates Dr. Mayda Garcia MD Primary care physician Activ e Start: November 14, 2024 Dr. Turner Armendariz DO Emergency Departmen t Physician Active Start: November 14, 2024 Dr. Edwin Kaplan DO Admitting physician Active Start: November 14 Dr. Edwin Kaplan DO Nurse Practitioner Active Start: November 14 Dr. Eleonora Hernandez MD Nurse Practitioner Active S tart: November 14, 2024 Dr. Maurilio Bradford MD Attending physician Active Start: November 14, 2024 Dr. Maurilio Bradford MD Nurse Practitioner Active Start: November 14, 2024 Team Status: Inactive Member Role/Relationship Status Dates Dr. Mayda Garcia MD Primary care physician Activ e Start: November 16, 2024 End: November 16, 2024 Dr. Mayda Garcia MD Attending physician Active Start: November 16, 2024 End: November 16, 2024 Dr. Mayda Garcia MD Referring Provider Active Start: November 16, 2024 End: November 16, 2024 Team Status: Inactive Member Role/Relationship Status Dates Dr. Mayda Garcia MD Primary care physician Activ e Start: January 19, 2025 End: January 19, 2025 RENE Avalos Attending physician Active S tart: January 19, 2025 End: January 19, 2025 SYDNEY Stout Referring Provider Active Start: January 19, 2025 End: January 19, 2025 Team Status: Inactive Member Role/Relationship Status Dates Dr. Mayda Garcia MD Primary care physician Activ e Start: January 19, 2025 End: January 19, 2025 Dr. Mayda Garcia MD Referring Provider Active Start: January 19, 2025 End: January 19, 2025 ALEX StoutC Attending physician Active Start: January 19, 2025 End: January 19, 2025 Team Status: Inactive Member Role/Relationship Status Dates Dr. Mayda Garcia MD Primary care physician Activ e Start: January 23, 2025 End: January 23, 2025 Dr. Mayda Garcia MD Referring Provider Active Start: January 23, 2025 End: January 23, 2025 Suzi Appiah NP APPRAISER AUDITOR-C Attending physician Active Start: January 23, 2025 End: January 23, 2025 Team Status: Inactive Member Role/Relationship Status Dates Dr. Mayda Garcia MD Primary care physician Activ e Start: January 26, 2025 End: January 26, 2025 Dr. Mayda Garcia MD Referring Provider Active Start: January 26, 2025 End: January 26, 2025 SYDNEY Stout Attending physician Active Start: January 26, 2025 End: January 26, 2025 Team Status: Inactive Member Role/Relationship Status Dates Dr. Mayda Garcia MD Primary care physician Activ e Start: January 30, 2025 End: January 30, 2025 Dr. Mayda Garcia MD Referring Provider Active Start: January 30, 2025 End: January 30, 2025 Dr. 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 [I25.10] Procedures AK CABG W/ARTERIAL GRAFT THREE ARTERIAL GRAFTS AK ECHO TRANSESOPHAG R-T 2D W/PRB IMG ACQUISJ I&R CABG AND SIS Echocardiography transesophageal real-time Rose, Azam Bragg MD [address] [place] [address], [address] [place] [address] [address] [place] [address] [place] [address] Referral ID Status Reason Start Date Expiration Date Visits Re quested Visits Authorized [id number] 1 1 Reason Comments Post-op Scheduled Active [...] Reason: Patient/family refused)2052 (Given - Provider: Nilsa Hills, KARINA) 0600 (Given - Provider: Nilsa Hills RN)1130 [...] 0810 (Given - Provider: Anna Escalera RN) 0810 (Given - Provider: Anna Escalera, KARINA) clopidogrel (Plavix) tablet 75 mg 75 mg, Oral, Daily, First dose on Thu01/09/23 at 0900 1007 (Given - Provider: Herminia Tom RN) 0810 (Given - Provider: Anna Escalera, KARINA) 0809 (Given - Provider: Anna Escalera RN) [...] Herminia Tom RN)2008 (Given - Provider: Nilsa Hilsl RN) 816 (Given - Provider: Anna Escalera, KARINA)2052 (Given - Provider: Nilsa Hills RN) 0802 (Given - Provider: Anna Escalera RN) Lidocaine [...] 0816 (Medication Applied - Provider: Anna Escalera RN)2015 [...] RN)2008 (Given - Provider: Nilsa Hills RN) 0810 (Given - Provider: Anna Escalera, KARINA)2052 (Given - Provider: Nilsa Hills RN) 0808 (Given - Provider: Anna Escalera RN) pantoprazole (ProtoNix) EC tablet 40 mg 40 mg, Oral, Daily before breakfast, First dose on Thu01/03/23 at 0800, Do not crush, chew, or split. 0620 (Given - Provider: Maurilio Busby RN) 0534 (Given - Provider: Nilsa Hills, KARINA) 0600 (Given - Provider: Nilsa Hills RN) [...] of constipation. 2008 (Given - Provider: Nilsa Hills, RN) 2052 (Given - Provider: Nilsa Hills [...] BE BASED ON THE PRIMARY CLINICAL RECORDS. [facility] [employer] [facility]. provides no warranty or guarantee of the accuracy or completeness of information in this document.
[2025-03-31 16:20] LABS: Hematocrit 32.8 % (37-47); Hemoglobin 11.1 g/dL (12.0-15.0); Immature Granulocytes Count 0.010 X10^3/uL (0.0-0.0); Mean Corp Hgb Conc 33.8 g/dL (32-36); Mean Corpuscular Volume 94.8 fL (81-99); Mean Platelet Vol. 11.0 fl (6.2-12.0); NRBC Flagged by Analyzer 0 % (0-5); Platelet Count 182 K/mm3 (150-450); RBC Distribution Width CV 13.8 % (11.6-14.6); RBC Distribution Width SD 47.9 fl (35.1-43.9); Red Blood Count 3.46 M/mm3 (4.2-5.4); White Blood Count 4.1 K/mm3 (4.4-11.0)
[2025-03-31 16:34] LABS: Anion Gap 11 (5-15); BUN 20 mg/dL (4-19); BUN/Creat Ratio 18.1 RATIO (10-20); Calcium,Total 8.3 mg/dL (7.6-11.0); Carbon Dioxide 22.9 mmol/L (21.0-32.0); Chloride 109 mmol/L (98-108); Estimated Creatinine Clearance 44.02 ml/min (50-250); Glucose 79 mg/dL (70-99); Potassium 4.3 mmol/L (3.3-5.1); Troponin T High Sensitivity 8 ng/L (<=14)
[2025-03-31 17:21] VITALS: BP 144/73; PULSE 80; RESP 19; O2SAT 100
[2025-03-31 18:37] LABS: Troponin T High Sens 2 HR 8 ng/L (<=14)
[2025-03-31 19:00] VITALS: BP 150/74; PULSE 76; RESP 14; O2SAT 100
[2025-03-31 19:13] VITALS: BP 150/74; PULSE 76; RESP 14; TEMP 36.6; O2SAT 100
== END 2025-03-31 19:16 | disposition home or self-care (01) ==
PROVIDERS: Emergency Provider Emergency Medicine; PCP Internal Medicine; Visit Provider Emergency Medicine
DX: J06.9 Acute upper respiratory infection, unspecified (principal); I11.0 Hypertensive heart disease with heart failure; I50.32 Chronic diastolic (congestive) heart failure; E11.9 Type 2 diabetes mellitus without complications; Z79.82 Long term (current) use of aspirin; Z79.84 Long term (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 of oral hypoglycemic drugs; Z79.899 Other long term (current) drug therapy
CPT/HCPCS: 71045; 80048; 84484; 85025; 87631; 87651; 93005; 99283; A4216

== ENCOUNTER 2025-04-05 16:57 | Emergency (ER) | payer MEDICARE, SELFPAY ==
[2023-07-29 08:29] VITALS: BMI 30.2
[2025-04-05 16:58] VITALS: BP 144/79; PULSE 94; RESP 18; TEMP 37.1; O2SAT 100; BMI 30.5
--- NOTE | 2025-04-05 17:17 | EDS_ITS ---
HPI HPI - URI History of Present Illness Chief Complaint: Cold Sx Informant: patient Onset/Context/Timing Onset: Weeks (1) Context: Gradual Onset Timing: Continuous Quality: Burning Location: Chest Worsened by: - (Nothing) Relieved by: - (Nothing) Associated Symptoms Associated Symptoms: Positive for Nasal Congestion, Headache, Sinus Pressure, Myalgias, Diarrhea, Shortness of Breath, Chest Pain and Nonproductive cough; Negative for Nausea, Vomiting, Hemoptysis or Productive Cough Narrative Narrative: Patient presents with cough, congestion, shortness of breath, and headaches that has been getting worse over the past week. Patient was seen here in the emergency department for this. Patient states she is not feeling any better. Patient states he started with diarrhea yesterday. Patient denies any nausea or vomiting. Patient admits to a cough but denies any sputum production. Patient admits to some burning pain in her chest and some shortness of breath. Patient admits to some subjective chills but denies any fevers. Patient admits to a headache and generalized weakness. Patient admits to general myalgias. ROS ROS ED Constitutional Constitutional ED: Reports chills; Denies fever(s) Eyes Eyes: Denies blurry vision or change in vision ENT ENT ED: Reports sore throat; Denies rhinorrhea Cardiovascular Cardiovascular: Reports chest pain; Denies palpitations Respiratory/Chest Respiratory/Chest: Reports cough and dyspnea Gastrointestinal Gastrointestinal: Reports diarrhea; Denies nausea or vomiting Genitourinary Genitourinary ED: Reports urinary frequency; Denies dysuria or hematuria Musculoskeletal Musculoskeletal: Reports back pain and myalgias; Denies neck pain Integumentary Denies abscess or rash Neurologic Neurologic: Reports headache(s) and weakness Allergic/Immunologic Allergic/Immunologic ED: Denies mouth swelling or urticaria [facility] Medical History Sinusitis Allergic rhinitis Pain of right great toe Keloid scar of skin Vertigo Chest pain Dyspnea on exertion Wears partial dentures Injury of head and neck Gastric reflux Encounter for transesophageal echo performed as part of open chest procedure History of echocardiogram History of stress test Tremor Retained suture Chest wall tenderness Fatigue Flu vaccine need Lower extremity edema History of coronary artery disease History of hypertension Left ankle pain Right hip pain Right groin pain Memory changes Left shoulder pain Cervical radiculopathy Cough Health care maintenance Right shoulder pain Therapeutic drug monitoring Osteoporosis Compression fracture of lumbar spine, non-traumatic Dysuria Dysuria Urinary frequency Acute back pain Personal history of colonic polyps GERD (gastroesophageal reflux disease) Hyperglycemia due to type 2 diabetes mellitus Wears glasses Diabetes Arthritis Anemia Non-smoker CPAP (continuous positive airway pressure) dependence Sleep apnea Shortness of breath on exertion Cardiology follow-up encounter Abdominal pain Osteoarthritis Congestive heart failure (CHF) Routine health maintenance Colon cancer screening Foreign body in stomach Seizure disorder Type 2 diabetes mellitus Diabetes mellitus type 2 in nonobese Obesity Urinary frequency Conversion disorder Non-toxic goiter Essential (primary) hypertension RIGHT FOOT HEEL SPUR Atherosclerotic heart disease of [place] coronary artery without angina pectoris Rheumatoid arthritis Diabetes type 2, controlled Hives Seasonal allergies Hyperlipidemia Chronic diastolic CHF (congestive heart failure) Home Medications ?Medication ?Instructions ?Recorded ?Last Taken ?Type multivitamin 1 tab PO DAILY vitamin 05/2011/12/24 History blood-glucose meter (True Metrix #1 ea 02/03/20 Unknow n Rx Air Glucose Meter kit) calcium citrate 200 mg PO DAILY supplement 0 05/21/20 11/12/24 History disability placard #1 ea 06/27/20 Unknown Rx aspirin 81 mg tablet,delayed 81 mg PO DAILY heart 08/0211/13/24 History release (Adult Low Dose Aspirin) blood sugar diagnostic (True #100 ea 06/17/23 Unknown Rx Metrix Glucose Test Strip) lancets 33 gauge #100 ea 06/17/23 Unknown Rx Handicap Placard #1 ea 01/07/24 Unknown Rx gabapentin 300 mg capsule 300 mg PO QHS #30 caps 02/1311/12/24 Rx metoprolol tartrate 25 mg tablet 25 mg PO QDAY heart # 90 tabs 04/19/24 11/12/24 Rx hydroxychloroquine 200 mg tablet See Rx Instructions . Route 09/21/24 11/12/24 Rx .COMPLEX immunosuppressant #180 tabs sitagliptin phosphate 100 mg See Rx Instructions .Rout e 09/21/24 11/12/24 Rx tablet (Januvia) .COMPLEX diabetes #90 tabs divalproex 500 mg tablet,delayed 500 mg .Route .COMPLE X seizures 11/07/24 11/12/24 Rx release (Depakote) #90 tabs pantoprazole 40 mg tablet,delayed 40 mg PO QDAY #90 ta bs 01/19/25 Unknown Rx release atorvastatin 80 mg tablet 80 mg PO QHS cholesterol #90 tabs 01/23/25 Unknown Rx evolocumab 140 mg/mL subcutaneous 140 mg subcut Q2W #2 mL 01/23/25 Unknown Rx pen injector (Reptamikoa CourtneyParthick) furosemide 40 mg tablet (Lasix) 20 mg PO DAILY 5 Unknown History denosumab 60 mg/mL subcutaneous 60 mg subcut [id number] bone health 01/26/25 Unknown Rx syringe (Prolia) #1 mL CPAP - Continuous Positive Airway 02/13/25 Unknown Hi story Pressure([facility] INFORMATIONAL USE ONLY) linaclotide 72 mcg capsule 72 mcg PO QAM #30 caps 02/02 11/25 Unknown Rx (Linzess) fluticasone furoate 27.5 2 spray intranasal QDAY #18. 2 mL 03/17/25 Unknown Rx mcg/actuation nasal spray,suspension (Flonase Sensimist) levocetirizine 5 mg tablet (Xyzal) 5 mg PO QPM PRN all ergy symptoms 03/17/25 Unknown Rx #90 tabs Allergy/AdvReac Type Severity Reaction Status Date / Time prednisone AdvReac Severe Hives Verified 04/05/25 16:58 Family History Grandmother Alcoholism Cancer Arthritis Mother Alcoholism Diabetes blood clots Hypertension Grandfather Heart disease Sister Thyroid disorder Other Breast cancer Cervical cancer Colon cancer Surgical History History of coronary artery bypass graft History of cardiac catheterization History of left heart catheterization (09/20/18) History of coronary artery stent placement (03/22/18) History of carpal tunnel surgery History of section H/O: hysterectomy Social History household members: none housing: apartment Smoking Status: Never smoker second hand exposure: No alcohol intake: current alcohol intake frequency: holidays/special occasions only substance use type: does not use what type of physical activity do you participate in: none EXAM Physical Exam Const Vital Signs: 04/05/25 16:58 04/05/25 17:12 Temperature 98.7 F Temperature Source Oral Pulse Rate 94 Respiratory Rate 18 Respiratory Pattern Irregular Blood Pressure 144/79 H Blood Pressure Mean 100 Pulse Ox 100 Oxygen Delivery Method Room Air Positive well nourished and well developed General Appearance ED: well developed and NAD HEENT Reports moist mucous membranes normocephalic and atraumatic Neck supple and no JVD Resp normal respiratory effort and clear to auscultation bilaterally Cardio Rate: regular rate Rhythm: regular rhythm GI non-tender and non-distended Palpation: soft Extremity normal to inspection and full ROM General Extremety ED: Negative for tenderness Neuro oriented x3, CN's II-XII intact bilaterally and no sensory deficits noted Sensorium / Orientation: alert Motor Exam: strength 5/5 throughout Psych mental status grossly normal MDM MDM MDM Narrative Medical decision making narrative: Differential diagnosis includes pneumonia, bronchitis, viral upper respiratory infection, gastroenteritis, urinary tract infection, dehydration, and electrolyte abnormality. CBC will be obtained to assess for leukocytosis and anemia. Basic metabolic profile will be obtained to assess for electrolyte abnormality and renal function. Urinalysis will be obtained to assess for urinary tract infection and hematuria. Chest x-ray will be obtained to assess for pneumonia or bronchitis. COVID-19, influenza, and RSV PCR will be obtained to assess for viral illness. History & Record Review Additional record(s) reviewed:: Prior ED visit and Prior labs Lab Data Attestation: I reviewed the patient's lab results. Lab results narrative: CBC was reviewed. White blood cell count was slightly low at 3.0. There is a mild anemia with a hemoglobin of 11.6 and hematocrit 33.8. These are consistent with previous results. Basic metabolic profile was reviewed. BUN was slightly elevated at 30 and creatinine was slightly elevated at 1.35. Urinalysis was reviewed. Leukocyte esterase was 100. There are 5-10 white blood cells but 0 bacteria. COVID-19 PCR was reviewed and was negative. Influenza PCR was reviewed and was negative for influenza A and influenza B. RSV PCR was reviewed and was negative. Labs: Laboratory Results - last 24 hr 04/05/25 04/05/25 17:55 18:29 WBC 3.0 L RBC 3.61 L Hgb 11.6 L Hct 33.8 L MCV 93.6 MCH 32.1 H MCHC 34.3 RDW Std Deviation 49.3 H RDW Coeff of [place] 14.2 Plt Count 169 MPV 10.6 Immature Gran % (Auto) 0.300 Neut % (Auto) 60.3 Lymph % (Auto) 22.0 Iron % (Auto) 15.0 H Eos % (Auto) 1.7 Baso % (Auto) 0.7 Absolute Neuts (auto) 1.8 L Absolute Lymphs (auto) 0.66 L Nucleated RBC % 0 Sodium 139 Potassium 3.8 Chloride 102 Carbon Dioxide 25.1 Anion Gap 12 BUN 30 H Creatinine 1.35 H Estim Creat Clear Calc 35.89 L Est GFR (MDRD) Non-Af 42 L BUN/Creatinine Ratio 22.4 H Glucose 86 Calcium 8.8 Urine Color Straw Urine Clarity Clear Urine pH 6.0 Ur Specific Leigh 1.015 Urine Protein 15 H Urine Glucose (UA) Normal Urine Ketones Negative Urine Occult Blood 10 H Urine Nitrite Negative Urine Bilirubin Negative Urine Urobilinogen Normal Ur Leukocyte Esterase 100 H Urine RBC 0-5 SEEN Urine WBC 5-10 SEEN Ur Squamous Epith Cells 0-5 SEEN Urine Bacteria 0 SEEN Urine Mucus 0 SEEN Radiography Chest X-Ray - ED: 2 View, Read by ED Physician, Read by Radiologist and No Acute Disease Diagnostic Testing: Clinical Impression(s) from Imaging Studies Chest X-Ray 04/05/25 17:23 IMPRESSION: No evidence of acute cardiopulmonary disease. Reading Location: [facility] PA and lateral chest x-ray was obtained. There are 2 views. On my independent interpretation, lung wallace are clear. There is normal cardiac silhouette. Bony thorax is normal. There is no acute process noted. Radiologist also interpreted the x-ray and agrees. Treatment and Re-Evaluation Narrative: Patient was given IV fluids. Patient was advised of her findings. Patient was instructed to rest in a dark quiet room. Patient was given a note for work. Patient was instructed to continue Tylenol or ibuprofen as needed for any fevers. Patient was instructed to follow-up with her primary care physician in 5 to 7 days. Patient understood and was agreeable with the plan. All questions were answered. Discharge Plan Triage Chief Complaint: Cold Sx ED Provider: Azam Frey Dx/Rx/DC Orders Clinical Impression: Viral illness, Diabetes Instructions: ED Viral Syndrome (Adult) Prescriptions: No Action multivitamin Tablet 1 tab PO DAILY calcium citrate 200 mg (950 mg) tablet 200 mg PO DAILY aspirin [Adult Low Dose Aspirin] 81 mg tablet,delayed release (DR/EC) 81 mg PO DAILY metoprolol tartrate 25 mg tablet 25 mg PO QDAY Qty: 90 3RF (DME) lancets 33 gauge misc See Rx Instructions .Route Qty: 100 2RF Rx Instructions: As directed (DME) True Metrix Glucose Test Strip Strip See Rx Instructions .ROUTE .MEDSUPPLY Qty: 100 3RF Rx Instructions: check twice a day and as needed divalproex [Depakote] 500 mg tablet,delayed release (DR/EC) 500 mg .ROUTE .COMPLEX Qty: 90 10RF Rx Instructions: Take 1 tablet orally qAM and 2 tablets qPM hydroxychloroquine 200 mg tablet See Rx Instructions .ROUTE .COMPLEX Qty: 180 1RF Dose Instruction: TAKE 1 TABLET BY MOUTH TWICE DAILY WITH MEALS Rx Instructions: TAKE 1 TABLET BY MOUTH TWICE DAILY WITH MEALS Januvia 100 mg tablet See Rx Instructions .ROUTE .COMPLEX Qty: 90 1RF Dose Instruction: TAKE 1 TABLET BY MOUTH DAILY Rx Instructions: TAKE 1 TABLET BY MOUTH DAILY Linzess 72 mcg capsule 72 mcg PO QAM Qty: 30 3RF pantoprazole 40 mg tablet,delayed release (DR/EC) 40 mg PO QDAY Qty: 90 1RF furosemide [Lasix] 40 mg tablet 20 mg PO DAILY atorvastatin 80 mg tablet 80 mg PO QHS Qty: 90 3RF Repatha SureClick 140 mg/mL pen injector 140 mg subcut Q2W Qty: 2 6RF Flonase Sensimist 27.5 mcg/actuation spray,suspension 2 spray intranasal QDAY Qty: 18.2 3RF Rx Instructions: into each nostril levocetirizine [Xyzal] 5 mg tablet 5 mg PO QPM PRN (Reason: allergy symptoms) Qty: 90 1RF gabapentin 300 mg capsule 300 mg PO QHS Qty: 30 0RF (DME) CPAP - Continuous Positive Airway Pressure([facility] INFORMATIONAL USE ONLY) See Rx Instructions .Route .MEDSUPPLY Rx Instructions: CPAP 6 DME- DASCO MASK- SW RESMED AIRTOUCH N30i NASAL MASK (DME) blood-glucose meter [True Metrix Air Glucose Meter] Kit See Rx Instructions .ROUTE .MEDSUPPLY Qty: 1 0RF Rx Instructions: As directed (DME) disability placard See Rx Instructions .ROUTE .MEDSUPPLY Qty: 1 0RF Rx Instructions: As directed, Length of time: 5 years (DME) Handicap Placard See Rx Instructions .ROUTE .MEDSUPPLY Qty: 1 0RF Rx Instructions: As directed, length of time 3 years Prolia 60 mg/mL syringe 60 mg subcut [id number] Qty: 1 2RF Stand Alone Forms: ED Work / School Excuse Primary Care Provider: Kannan Garcia Referrals: Kannan Garcia MD [Primary Care Provider, Internal Medicine] - 5-7 Days Print Language: German Disposition Disposition: Home, Self Care
--- NOTE | 2025-04-05 17:23 | RAD_ITS ---
PROCEDURE: CHEST PA AND LATERAL 04/05/2025 REASON FOR EXAM: COUGH TECHNIQUE: Procedure Code: RADCXR Modality: DX Procedure: CHEST PA AND LATERAL COMPARISON: 03/31/2025 FINDINGS: Borderline cardiomegaly. Evidence of CABG and coronary artery stenting, with sternotomy wires and multiple mediastinal surgical clips. No significant vascular congestion. No appreciable focal consolidation, pneumothorax or pleural effusion. Degenerative changes of the spine and bilateral shoulders. RAD/Chest PA and Lateral IMPRESSION: No evidence of acute cardiopulmonary disease. Reading Location: [id number]
[2025-04-05] MEDS: 0.9% Normal Saline (1000mL) 1,000 ML 1000 ML IV (17:58)
[2025-04-05 18:01] LABS: Hematocrit 33.8 % (37-47); Hemoglobin 11.6 g/dL (12.0-15.0); Immature Granulocytes Count 0.010 X10^3/uL (0.0-0.0); Mean Corp Hgb Conc 34.3 g/dL (32-36); Mean Corpuscular Volume 93.6 fL (81-99); Mean Platelet Vol. 10.6 fl (6.2-12.0); NRBC Flagged by Analyzer 0 % (0-5); Platelet Count 169 K/mm3 (150-450); RBC Distribution Width CV 14.2 % (11.6-14.6); RBC Distribution Width SD 49.3 fl (35.1-43.9); Red Blood Count 3.61 M/mm3 (4.2-5.4); White Blood Count 3.0 K/mm3 (4.4-11.0)
[2025-04-05 18:28] LABS: Anion Gap 12 (5-15); BUN 30 mg/dL (4-19); BUN/Creat Ratio 22.4 RATIO (10-20); Calcium,Total 8.8 mg/dL (7.6-11.0); Carbon Dioxide 25.1 mmol/L (21.0-32.0); Chloride 102 mmol/L (98-108); Estimated Creatinine Clearance 35.89 ml/min (50-250); Glucose 86 mg/dL (70-99); Potassium 3.8 mmol/L (3.3-5.1)
[2025-04-05 18:45] LABS: Mucous, Urine 0 SEEN /hpf (<or=2+)
[2025-04-05 19:00] LABS: Color, Urine Straw (Yellow); Glucose, Dipstick Normal (Normal); Ketone-Dipstick Negative (Negative); Leukocyte Esterase-Dipstick 100 /ul (Negative); Nitrite-Dipstick Negative (Negative); Occult Blood-Urine 10 /ul (Negative); Protein-Dipstick 15 mg/dl (Negative); Specific Gravity, Urine 1.015 (1.002-1.030); Urine Bilirubin Dipstick Negative (Negative)
[2025-04-05 19:55] LABS: Squamous Epithelial Cells - UA 0-5 SEEN /hpf (5-10)
[2025-04-05 19:57] LABS: Red Blood Cells-Urine 0-5 SEEN /hpf (0-5)
[2025-04-05 20:17] VITALS: BP 144/79; PULSE 94; RESP 18; TEMP 37.1; O2SAT 100
[2025-04-05 20:25] VITALS: BP 148/81; PULSE 94; RESP 17; O2SAT 100
== END 2025-04-05 20:27 | disposition home or self-care (01) ==
PROVIDERS: Emergency Provider Emergency Medicine; PCP Internal Medicine; Visit Provider Emergency Medicine
DX: B34.9 Viral infection, unspecified (principal); M06.9 Rheumatoid arthritis, unspecified; I11.0 Hypertensive heart disease with heart failure; I50.32 Chronic diastolic (congestive) heart failure; G40.909 Epilepsy, unspecified, not intractable, without status epilepticus; E11.9 Type 2 diabetes mellitus without complications; R09.81 Nasal congestion; R51.9 Headache, unspecified; R06.02 Shortness of breath; R05.9 Cough, unspecified; D64.9 Anemia, unspecified; K21.9 Gastro-esophageal reflux disease without esophagitis; I25.10 Atherosclerotic heart disease of native coronary artery without angina pectoris; M81.0 Age-related osteoporosis without current pathological fracture; E78.5 Hyperlipidemia, unspecified; G47.30 Sleep apnea, unspecified; Z95.1 Presence of aortocoronary bypass graft; Z79.82 Long term (current) use of aspirin; Z79.84 Long term (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 of oral hypoglycemic drugs; Z79.899 Other long term (current) drug therapy
CPT/HCPCS: 71046; 80048; 81001; 85025; 87631; 96360; 99283; A4216

== ENCOUNTER 2025-04-08 15:28 | Emergency (ER) | payer MEDICARE, SELFPAY ==
[2023-07-29 08:29] VITALS: BMI 30.2
[2025-04-08 15:29] VITALS: BP 139/80; PULSE 88; RESP 20; TEMP 36.8; O2SAT 100; BMI 31.1
--- NOTE | 2025-04-08 15:44 | EKG12_ITS ---
Test Reason : CP/SOB Blood Pressure : */* mmHG Vent. Rate : 80 BPM Atrial Rate : 80 BPM P-R Int : 138 ms QRS Dur : 70 ms QT Int : 364 ms P-R-T Axes : 60 12 49 degrees QTcB Int : 419 ms Normal sinus rhythm Possible Left atrial enlargement Borderline ECG Confirmed by RADHIKA ZUNIGA, KELLY ([id number]), editor continuity and script CLAUDIA HECTOR ([id number]) on 04/10/2025 6:10:34 AM Referred By: KIRAN/CARISA Confirmed By: KELLY GARRIDO MD
--- NOTE | 2025-04-08 15:44 | RAD_ITS ---
PROCEDURE: CHEST PA AND LATERAL 04/08/2025 REASON FOR EXAM: COUGH TECHNIQUE: Procedure Code: RADCXR Modality: DX Procedure: CHEST PA AND LATERAL COMPARISON: 04/05/2025. FINDINGS: Prior sternotomy. The heart is normal in size. The lungs are clear. No acute chest abnormality. RAD/Chest PA and Lateral IMPRESSION: NO ACUTE FINDINGS. Reading Location: [id number]
--- NOTE | 2025-04-08 15:48 | EX.ED.DYSGE1 ---
HPI History of Present Illness Chief Complaint: General Illness Narrative Narrative: Chief complaint and HPI: 74-year-old female with history CAD, LINA, DM2, CHF, HLD presents for evaluation of cold-like symptoms. Patient presents for 1 week of headache, nonproductive cough, body aches, nausea, chest tightness, and diarrhea. She has had recent sick contacts. On chart review, patient has been seen twice in our emergency department for same complaints in which both times she was diagnosed with viral illness and discharged home. Review of systems: See HPI Medications: As listed on the chart Allergies: As listed on the chart PFSH: Per chart Vital signs: As listed on the chart. Reviewed. Physical exam: Gen: A&O x3, NAD Head: Normocephalic, atraumatic Eyes: No sclera icterus, conjunctiva clear, PERRL ENT: Moist mucous membranes, posterior oropharynx unremarkable, uvula midline, tonsils not enlarged, no tonsillar exudates Neck: Trachea midline, No JVD, Full ROM, No meningismus CV: RRR, no murmurs, no peripheral edema, midline incision healed well from previous surgery Resp: Lungs CTA BL, no w/r/c, + dry cough GI: Abd soft, non-distended, non-tender, no r/r/g Musc: Moves all extremities, no deformity Skin: Warm, dry Psych: Cooperative [facility] Medical History Sinusitis Allergic rhinitis Pain of right great toe Keloid scar of skin Vertigo Chest pain Dyspnea on exertion Wears partial dentures Injury of head and neck Gastric reflux Encounter for transesophageal echo performed as part of open chest procedure History of echocardiogram History of stress test Tremor Retained suture Chest wall tenderness Fatigue Flu vaccine need Lower extremity edema History of coronary artery disease History of hypertension Left ankle pain Right hip pain Right groin pain Memory changes Left shoulder pain Cervical radiculopathy Cough Health care maintenance Right shoulder pain Therapeutic drug monitoring Osteoporosis Compression fracture of lumbar spine, non-traumatic Dysuria Dysuria Urinary frequency Acute back pain Personal history of colonic polyps GERD (gastroesophageal reflux disease) Hyperglycemia due to type 2 diabetes mellitus Wears glasses Diabetes Arthritis Anemia Non-smoker CPAP (continuous positive airway pressure) dependence Sleep apnea Shortness of breath on exertion Cardiology follow-up encounter Abdominal pain Osteoarthritis Congestive heart failure (CHF) Routine health maintenance Colon cancer screening Foreign body in stomach Seizure disorder Type 2 diabetes mellitus Diabetes mellitus type 2 in nonobese Obesity Urinary frequency Conversion disorder Non-toxic goiter Essential (primary) hypertension RIGHT FOOT HEEL SPUR Atherosclerotic heart disease of [place] coronary artery without angina pectoris Rheumatoid arthritis Diabetes type 2, controlled Hives Seasonal allergies Hyperlipidemia Chronic diastolic CHF (congestive heart failure) Home Medications ?Medication ?Instructions ?Recorded ?Last Taken ?Type multivitamin 1 tab PO DAILY vitamin 05/20/19 11/12/24 History blood-glucose meter (True Metrix #1 ea 02/03/20 Unknown Rx Air Glucose Meter kit) calcium citrate 200 mg PO DAILY supplement 05/21/20 11/12/24 History disability placard #1 ea 06/27/20 Unknown Rx aspirin 81 mg tablet,delayed 81 mg PO DAILY heart 08/13/20 11/13/24 History release (Adult Low Dose Aspirin) blood sugar diagnostic (True #100 ea 06/17/23 Unknown Rx Metrix Glucose Test Strip) lancets 33 gauge #100 ea 06/17/23 Unknown Rx Handicap Placard #1 ea 01/07/24 Unknown Rx gabapentin 300 mg capsule 300 mg PO QHS #30 caps 02/14/24 11/12/24 Rx metoprolol tartrate 25 mg tablet 25 mg PO QDAY heart #90 tabs 04/19/24 11/12/24 Rx hydroxychloroquine 200 mg tablet See Rx Instructions .Route 09/21/24 11/12/24 Rx .COMPLEX immunosuppressant #180 tabs sitagliptin phosphate 100 mg See Rx Instructions .Route 09/21/24 11/12/24 Rx tablet (Januvia) .COMPLEX diabetes #90 tabs divalproex 500 mg tablet,delayed 500 mg .Route .COMPLEX seizures 11/07/24 11/12/24 Rx release (Depakote) #90 tabs pantoprazole 40 mg tablet,delayed 40 mg PO QDAY #90 tabs 01/19/25 Unknown Rx release atorvastatin 80 mg tablet 80 mg PO QHS cholesterol #90 tabs 01/23/25 Unknown Rx evolocumab 140 mg/mL subcutaneous 140 mg subcut Q2W #2 mL 01/23/25 Unknown Rx pen injector (Repatha SureClick) furosemide 40 mg tablet (Lasix) 20 mg PO DAILY 01/23/25 Unknown History denosumab 60 mg/mL subcutaneous 60 mg subcut [id number] bone health 01/26/25 Unknown Rx syringe (Prolia) #1 mL CPAP - Continuous Positive Airway 02/13/25 Unknown History Pressure([facility] INFORMATIONAL USE ONLY) linaclotide 72 mcg capsule 72 mcg PO QAM #30 caps 02/27/25 Unknown Rx (Linzess) fluticasone furoate 27.5 2 spray intranasal QDAY #18.2 mL 03/17/25 Unknown Rx mcg/actuation nasal spray,suspension (Flonase Sensimist) levocetirizine 5 mg tablet (Xyzal) 5 mg PO QPM PRN allergy symptoms 03/17/25 Unknown Rx #90 tabs Allergy/AdvReac Type Severity Reaction Status Date / Time prednisone AdvReac Severe Hives Verified 04/08/25 15:30 Family History Grandmother Alcoholism Cancer Arthritis Mother Alcoholism Diabetes blood clots Hypertension Grandfather Heart disease Sister Thyroid disorder Other Breast cancer Cervical cancer Colon cancer Surgical History History of coronary artery bypass graft History of cardiac catheterization History of left heart catheterization (09/20/18) History of coronary artery stent placement (03/22/18) History of carpal tunnel surgery History of section H/O: hysterectomy Social History household members: none housing: apartment Smoking Status: Never smoker second hand exposure: No alcohol intake: current alcohol intake frequency: holidays/special occasions only substance use type: does not use what type of physical activity do you participate in: none EXAM Physical Exam Const Vital Signs: 04/08/25 15:29 04/08/25 16:19 04/08/25 16:29 Temperature 98.2 F Temperature Source Oral Pulse Rate 88 Respiratory Rate 20 H Respiratory Effort Short of Breath Blood Pressure 139/80 H 152/80 H Blood Pressure Mean 99 104 Pulse Ox 100 Oxygen Delivery Method Room Air 04/08/25 16:31 04/08/25 17:05 04/08/25 18:00 Temperature 98.2 F 98.4 F Temperature Source Oral Temporal Pulse Rate 80 73 72 Respiratory Rate 18 18 Respiratory Effort Blood Pressure 152/80 H 158/77 H 153/76 H Blood Pressure Mean 104 104 101 Pulse Ox 100 100 100 Oxygen Delivery Method Room Air Room Air Room Air 04/08/25 18:18 Temperature 98.4 F Temperature Source Pulse Rate 72 Respiratory Rate 18 Respiratory Effort Blood Pressure 153/76 H Blood Pressure Mean 101 Pulse Ox 100 Oxygen Delivery Method MDM MDM MDM Narrative Medical decision making narrative: 74-year-old female with history CAD, LINA, DM2, CHF, HLD presents for evaluation of cold-like symptoms. Patient presents for 1 week of headache, nonproductive cough, body aches, nausea, chest tightness, and diarrhea. She has had recent sick contacts. On chart review, patient has been seen twice in our emergency department for same complaints in which both times she was diagnosed with viral illness and discharged home. Differential diagnosis includes but is not limited to viral illness, influenza, COVID, pneumonia, electrolyte abnormality, dehydration, UTI. NS bolus, Toradol, Zofran ordered for symptoms. Laboratory workup ordered with chest x-ray. EKG and chest x-ray reviewed, see below. CBC with baseline leukopenia of 3.4. Patient has history of previous anemia that has since resolved on these labs. Mild thrombocytopenia at 149. Magnesium mildly elevated at 2.4. Patient receiving fluids. Troponin unremarkable. Will obtain delta given that she is endorsing chest tightness. CMP with mild hyperkalemia 5.2 however the specimen was hemolyzed. No KULDEEP. No transaminitis or hyperbilirubinemia. COVID, flu, RSV negative. UA negative for UTI. Negative for ketones. Repeat troponin unremarkable. On reevaluation, patient's symptoms have improved. She is afebrile. Not hypoxic. I do suspect that her symptoms are viral in nature. However given the duration of her symptoms we will place her on a Z-Rob for possible bronchitis. She needs to follow-up with her primary care physician for her chronic leukopenia. She confirmed understanding of the plan. Patient is able to discharge home. Return precautions explained. EKG: Interpreted by me/EM physician: EKG shows normal sinus rhythm without acute ischemic changes. Heart rate 80. Diagnostic: Interpreted by me/EM physician: Chest x-ray without pneumonia, effusion, cardiomegaly, pneumothorax. Radiology in agreement. Impression: 1. Cold-like symptoms 2. Chronic leukopenia 3. Thrombocytopenia Lab Data Labs: Laboratory Results - last 24 hr 04/08/25 04/08/25 04/08/25 15:50 16:28 17:52 WBC 3.4 L RBC 3.75 L Hgb 12.0 Hct 36.2 L MCV 96.5 MCH 32.0 MCHC 33.1 RDW Std Deviation 48.6 H RDW Coeff of [place] 13.5 Plt Count 149 L MPV 11.2 Immature Gran % (Auto) 0.000 Neut % (Auto) 35.2 L Lymph % (Auto) 54.4 H [place] % (Auto) 8.1 Eos % (Auto) 1.7 Baso % (Auto) 0.6 Absolute Neuts (auto) 1.2 L Absolute Lymphs (auto) 1.87 Nucleated RBC % 0 Sodium 137 Potassium 5.2 H Chloride 103 Carbon Dioxide 24.1 Anion Gap 9 BUN 15 Creatinine 1.14 Estim Creat Clear Calc 42.91 L Est GFR (MDRD) Non-Af 51 L BUN/Creatinine Ratio 13.2 Glucose 105 H Calcium 8.8 Magnesium 2.4 H Total Bilirubin 0.27 AST 29 ALT 25 Alkaline Phosphatase 70 Troponin T High Sens < 6 D Troponin T Hi Sens 2 Hr 6 Total Protein 7.0 Albumin 3.7 Globulin 3.3 Albumin/Globulin Ratio 1.1 Urine Color Yellow Urine Clarity Clear Urine pH 7.0 Ur Specific [place] 1.010 Urine Protein 15 H Urine Glucose (UA) Normal Urine Ketones Negative Urine Occult Blood Negative Urine Nitrite Negative Urine Bilirubin Negative Urine Urobilinogen Normal Ur Leukocyte Esterase 25 H Urine RBC 0 SEEN Urine WBC 0 SEEN Ur Squamous Epith Cells 0 SEEN Urine Bacteria 0 SEEN Urine Mucus 0 SEEN Radiography Diagnostic Testing: Clinical Impression(s) from Imaging Studies Chest X-Ray 04/08/25 15:44 IMPRESSION: NO ACUTE FINDINGS. Reading Location: [address] Discharge Plan Triage Chief Complaint: General Illness Other Complaint: Chest Pain Diarrhea ED Provider: Rhett Chaudhry Dx/Rx/DC Orders Prescriptions: No Action multivitamin Tablet 1 tab PO DAILY calcium citrate 200 mg (950 mg) tablet 200 mg PO DAILY aspirin [Adult Low Dose Aspirin] 81 mg tablet,delayed release (DR/EC) 81 mg PO DAILY metoprolol tartrate 25 mg tablet 25 mg PO QDAY Qty: 90 3RF (DME) lancets 33 gauge misc See Rx Instructions .Route Qty: 100 2RF Rx Instructions: As directed (DME) True Metrix Glucose Test Strip Strip See Rx Instructions .ROUTE .MEDSUPPLY Qty: 100 3RF Rx Instructions: check twice a day and as needed divalproex [Depakote] 500 mg tablet,delayed release (DR/EC) 500 mg .ROUTE .COMPLEX Qty: 90 10RF Rx Instructions: Take 1 tablet orally qAM and 2 tablets qPM hydroxychloroquine 200 mg tablet See Rx Instructions .ROUTE .COMPLEX Qty: 180 1RF Dose Instruction: TAKE 1 TABLET BY MOUTH TWICE DAILY WITH MEALS Rx Instructions: TAKE 1 TABLET BY MOUTH TWICE DAILY WITH MEALS Januvia 100 mg tablet See Rx Instructions .ROUTE .COMPLEX Qty: 90 1RF Dose Instruction: TAKE 1 TABLET BY MOUTH DAILY Rx Instructions: TAKE 1 TABLET BY MOUTH DAILY Linzess 72 mcg capsule 72 mcg PO QAM Qty: 30 3RF pantoprazole 40 mg tablet,delayed release (DR/EC) 40 mg PO QDAY Qty: 90 1RF furosemide [Lasix] 40 mg tablet 20 mg PO DAILY atorvastatin 80 mg tablet 80 mg PO QHS Qty: 90 3RF Repatha SureClick 140 mg/mL pen injector 140 mg subcut Q2W Qty: 2 6RF Flonase Sensimist 27.5 mcg/actuation spray,suspension 2 spray intranasal QDAY Qty: 18.2 3RF Rx Instructions: into each nostril levocetirizine [Xyzal] 5 mg tablet 5 mg PO QPM PRN (Reason: allergy symptoms) Qty: 90 1RF gabapentin 300 mg capsule 300 mg PO QHS Qty: 30 0RF (DME) CPAP - Continuous Positive Airway Pressure([facility] INFORMATIONAL USE ONLY) See Rx Instructions .Route .MEDSUPPLY Rx Instructions: CPAP 6 DME- DASCO MASK- SW RESMED A[employer]OU[employer] N30i NASAL MASK (DME) blood-glucose meter [True Metrix Air Glucose Meter] Kit See Rx Instructions .ROUTE .MEDSUPPLY Qty: 1 0RF Rx Instructions: As directed (DME) disability placard See Rx Instructions .ROUTE .MEDSUPPLY Qty: 1 0RF Rx Instructions: As directed, Length of time: 5 years (DME) Handicap Placard See Rx Instructions .ROUTE .MEDSUPPLY Qty: 1 0RF Rx Instructions: As directed, length of time 3 years Prolia 60 mg/mL syringe 60 mg subcut [id number] Qty: 1 2RF Primary Care Provider: Kannan Garcia Referrals: Kannan Garcia MD [Primary Care Provider, Internal Medicine] Print Language: Serbian
--- OUTSIDE RECORDS SUMMARY | 2025-04-08 15:51 | XMS RPT_ITS | CCD ---
Author Organization [facility] Inform ion [facility] Care Team Providers Care Signal Inspector Name Role Phone CHRIS YAO Unavailable Unavailable [...] Unavailable TESTRAKE, MYNOR Referring Unavailable KIM, GLEN (BI DATA ARCHITECT) Referring Unavailable KIM, GLEN (BI DATA ARCHITECT) Referring Unavailable JENELLE, TILA (PT) Attending Unavailable TESTRAKE, MYNOR Referring Unavailable Dr. Mayda Garcia Primary Care Provider Dr. Mayda Garcia Attending Provider [phone] Dr. Mayda Garcia Referring Provider [phone] Jayant LEAD SIMULATION MODELING ENGINEER, LEAD SIMULATION MODELING ENGINEER-C Peggy Attending Provider Dr. Mayda Garcia Primary Care Provider [phone] Dr. Mayda Garcia Referring Provider [phone] Cheuvront LEAD SIMULATION MODELING ENGINEER, LEAD SIMULATION MODELING ENGINEER-C Peggy Attending Provider Venegas LEAD SIMULATION MODELING ENGINEER, LEAD SIMULATION MODELING ENGINEER-C Vanita Attending Provider Dr. Mayda Garcia [...] Provider Dr. Turner Armendariz Emergency Provider [facility], Dr. Villanueva Admit Provider Jim, Dr. Villanueva [facility]ending [facility] Villanueva Other Provider Dr. Winston Johnson Attending Provider Dr. Russell Jang Attending Provider Dr. Russell Jang Referring Provider Dr. Mayda Garcia Primary Care Provider [phone] Dr. Mayda Garcia Attending Provider [phone] Dr. Mayda Garcia Referring Provider [phone] RENE Lin Attending Provider Dr. Mayda Cnao Primary Care Provider [phone] Dr. Mayda [...] [phone] Mayda Garcia B Primary Care Provider ORSE, AZAM Attending Unavailable JOSE, EFCOSME Primary Care Unavailable ROSE, AZAM Attending Unavailable JOSE EFEWONGCONSUELO Primary Care Unavailable ROSE, AZAM Referring Unavailable JOSE, EFMICHELLEONGCONSUELO Primary Care Unavailable ROSE, AZAM Attending Unavailable ROSE, AZAM Admitting Unavailable ROSE, AZAM Attending Unavailable JOSE, EFEWONGBE Primary Care Unavailable ZMEILI, DUC Consulting Unavailable Dr. Mayda Garcia Primary Care Provider [phone] Dr. Mayda Garcai Referring Provider [phone] RENE Tobias Attending Provider [...] Dr. Pepe Ruiz Referring Provider Roof LEAD SIMULATION MODELING ENGINEER, LEAD SIMULATION MODELING ENGINEER-C Carlos Bush Attending Provider Dr. Mayda [...] Dr. Pepe Ruiz Referring Provider Roof LEAD SIMULATION MODELING ENGINEER, LEAD SIMULATION MODELING ENGINEER-Shila Bush Attending Provider Dr. Mayda Garcia Primary Care Provider [phone] Dr. Mayda Garcia Attending Provider [phone] Dr. Mayda Garcia Referring Provider [phone] Dr. Pepe Ruiz Attending Provider Dr. Pepe Ruiz Referring Provider Roof LEAD SIMULATION MODELING ENGINEER, LEAD SIMULATION MODELING ENGINEER-C Carlos Bush Attending Provider Dr. Winston Johnson Attending Provider Dr. Parker Pickett Attending Provider [phone] Dr. Mayda Garcia Primary Care Provider [phone] Dr. Pepe Ruiz Attending Provider Dr. Pepe Ruiz Referring Provider Dr. Mayda Garcia Attending Provider [phone] Dr. Mayda Garcia Referring Provider [phone] Shelly LEAD SIMULATION MODELING ENGINEER, LEAD SIMULATION MODELING ENGINEER-C Carlos Bush Attending Provider Theo LEAD SIMULATION MODELING ENGINEER, LEAD SIMULATION MODELING ENGINEER-C Vanita Attending Provider Dr. Mayda Garcia Primary Care Provider [phone] Dr. Winston Johnson Attending Provider Dr. Pepe Ruiz Attending Provider [phone] Dr. Pepe Ruiz Referring Provider [phone] Dr. Mayda Garcia Referring Provider [phone] Dr. Parker Pickett Attending Provider Theo LEAD SIMULATION MODELING ENGINEER, LEAD SIMULATION MODELING ENGINEER-C Vanita Attending Provider Dr. Mayda Garcia [...] [phone] Theo GILLESPIE-CVanita Other Provider [phone] Russell Jang DO Attending Provider Kashif [...] Azam Frey DO Attending Provider Theo LEAD SIMULATION MODELING ENGINEER-CVanita Attending Provider Jose ZUNIGA, Dr. Brunner Primary Care Provider Dr. Mayda Garcia MD Attending Provider Jose ZUNIGA, Dr. Brunner Referring Provider Theo LEAD SIMULATION MODELING ENGINEER-CVanita Referring Provider Jose ZUNIGA, Dr. Brunner Primary Care Provider Sara ZUNIGA, Dr. Cantu Attending Provider Jose ZUNIGA, Dr. Brunner Primary Care Provider Sara ZUNIGA, Dr. Cantu Referring Provider [facility] DO, Dr. Tompkins Emergency Provider [facility] DO, Dr. Pineda Attending Provider [facility] DO, Dr. Pineda Admit Provider [facility] DO, Dr. Pineda Admit Provider [facility] DO, Dr. Pineda Other Provider Mary ZUNIGA, Dr. Crews Other Provider Unavailable Sanchez ZUNIGA, Dr. Thorpe Attending Provider Unavailyemi Bradford MD, Dr. Thorpe Other Provider Unavailable Rita ZUNIGA, Dr. Brandon Attending Provider Jose ZUNIGA, Dr. Brunner Primary Care Physician Sara ZUNIGA, Dr. Cantu Attending Physician Theo LEAD SIMULATION MODELING ENGINEER-C, Vanita Attending Physician [phone] [facility] DO, Dr. Tompkins Emergency Department Physici an [facility] DO, Dr. Pineda Admitting Physician [facility] DO, Dr. Pineda Nurse Practitioner Mary ZUNIGA, Dr. Crews Nurse Practitioner Unavailab Leilani ZUNIGA, Dr. Thorpe Attending Physician Unavail lesli Bradford MD, Dr. Thorpe Nurse Practitioner Unavailyemi Salinas MD, Dr. Brandon Attending Physician [phone] Jose ZUNIGA, Dr. Brunner Attending Physician [phone] Jose ZUNIGA, Dr. Brunner Referring Provider [phone] Mikhail West Attending Physician [phone] Igor LEAD SIMULATION MODELING ENGINEER-C, Shruthi Referring Provider Igor LEAD SIMULATION MODELING ENGINEER-C, Shruthi Attending Physician [phone] Td LEAD SIMULATION MODELING ENGINEER-C, Suzi Attending Physician Jose ZUNIGA, Dr. Brunner Primary Care Physician Sara ZUNIGA, Dr. Cantu Attending Physician Sara ZUNIGA, Dr. Cantu Referring Provider [phone] Oleghe, Efewongbe Primary Care Unavailable Vellanki, Yee [...] Oleghe, Efewongbe Primary Care Unavailable Theo LEAD SIMULATION MODELING ENGINEER, Vanita Referring Unavailable Theo LEAD SIMULATION MODELING ENGINEER, Vanita Attending Unavailable Oleghe, Efewongbe Primary [...] Oleghe, Efewongbe Primary Care Unavailable Theo LEAD SIMULATION MODELING ENGINEER, Vanita Attending Unavailable Theo LEAD SIMULATION MODELING ENGINEER, Vanita Referring Unavailable Oleghe, Efewongbe Primary Care Unavailable Shruthi Cotsa Referring Unavailable Mikhail Esposito Attending Unavailable Oleghe, [...] Unavailable Oleghe, Efewongbe Referring Unavailable Theo LEAD SIMULATION MODELING ENGINEER, Vanita Attending Unavailable Oleghe, Efewongbe Primary Care Unavailable Russell Jang Attending Unavailable Theo LEAD SIMULATION MODELING ENGINEER, Vanita Referring Unavailable Theo LEAD SIMULATION MODELING ENGINEER, Vanita Consulting Unavailable Oleghe, Efewongbe Primary Care Unavailable Oleghe, Efewongbe Referring Unavailable Oleghe, Efewongbe Attending Unavailable Allergies Allergy Classification Reported Allergen(s) Allergy Type Date of Onset Reaction(s) Facility (3 sources) Seasonal allergy; Translations: [SEASONAL ALLERGIES] Propensity to adverse reactions (disorder) 4 AOF [facility] Repository (20 sources) predniSONE Drug Allergy 2 Nausea, Hives [facility] (8 sources) Prednisone Allergy to substance 7 Hives, Nausea And Vomiting [facility] (1 source) predniSONE Drug Allergy 5 [facility] Repository Medications Current Medications Medication Drug Class(es) [...] 02-27-2017 End: 07-16-2017 20 ml albumin human, penitentiary 250 mg/ml injection (2 sources) Human Serum [...] mg docusate sodium 50 mg / sennosides, penitentiary 8.6 mg oral tablet (1 source) Start: [...] 2021 1:00am 0.5 ml heparin sodium, porcine 78798 unt/ml prefilled syringe (1 source) Unfractionated Heparin, [...] Discontinued (Stop taking at discharge) triamcinolone acetonide 0.01884 mg/mg topical ointment (20 sources) Corticosteroid Start: [...] disease (20 sources) 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; Translations: [Coronary [...] monitoring] 01-13-2022 Episodic Other aftercare (2 sources) lobsterman (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 of insulin; Translations: [FDC (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 of insulin (HCC)] Onset: 3 [...] Visit Reporton 2024 Office Visit Report Normal [facility] Gastroenterology Visit Repor ton 01-26-2025 Gastroenterology Visit Report Normal [facility] Cardiology Visit Reporton Cardiology Visit Report Normal [facility] Abdomen Single Viewon 2024 Abdomen Single View Normal [facility] Absolute lymphocyte countOrd ered By: Shruthi Costa on 01-19-2025 Lymphocytes Auto (Unsp spec) [#/Vol] 1.40 10*3/uL 0.83-4.51 [facility] Anion gap in Serum or Plasma Ordered By: Mayda Garcia on 01-19-2025 Anion gap [Moles/Vol] 14 mmol/L 5- [facility] Automated lymphocyte count a s percentage of total leukocytesOrdered By: Shruthi Costa on 01-19-2025 Lymphocytes/100 WBC Auto (Unsp spec) 32.6 % - [facility] BUN/creatinine ratioOrdered By: Mayda Garcia on 01-19-2025 Urea nitrogen/Creatinine [Mass ratio] 21.7 mg/mg High - [facility] Basic Metabolic Profile (BMP )on 01-19-2025 BUN/CRE 21.7 RATIO High 02-20 [facility] Comment on above: Performed By: #### L 500.2500 ####[facility] [address] [place], [address] Calcium [Mass/Vol] 9.3 mg/dL Normal 7.6-11.0 [facility] Comment on above: Performed By: #### L 500.2500 ####[facility] [address], [address] Chloride [Moles/Vol] 103 mmol/L Normal 98-108 [facility] Comment on above: Performed By: #### L 500.2500 ####[facility] [address] [place], [address] CO2 [Moles/Vol] 22.9 mmol/L Normal 21.0-32.0 [facility] Comment on above: Performed By: #### L 500.2500 ####[facility] [address] [place], [address] Creatinine [Mass/Vol] 1.32 mg/dL High 0.70-1.[address] [facility] Comment on above: Performed By: #### L 500.2500 ####[facility] [address] [place], [address] GAP 14 Normal 5-15 [facility] Comment on above: Performed By: #### L 500.2500 ####[facility] [address] [place], [address] GFR/1.73 sq M.predicted among non-blacks MDRD (S/P/Bld) [Vol rate/Area] 43 mL/min/{1.73_m2} Low >60 [facility] Comment on above: Result Comment: mL/m in/1.73m2 CKD-EPI Creatinine Equation (2020) Performed By: #### L 500.2500 ####[facility] [address] [place], [address] Glucose [Mass/Vol] 90 mg/dL Normal 70-99 [facility] Comment on above: Performed By: #### L 500.2500 ####[facility] [address] [place], [address] Potassium [Moles/Vol] 4.3 mmol/L Normal 3.3-5.[address] [facility] Comment on above: Performed By: #### L 500.2500 ####[facility] [address] [place], [address] Sodium [Moles/Vol] 139 mmol/L Normal 133-145 [facility] Comment on above: Performed By: #### L 500.2500 ####[facility] [address] [place], [address] Urea nitrogen [Mass/Vol] 29 mg/dL High 4-19 [facility] Comment on above: Performed By: #### L 500.2500 ####[facility] [address] [place], [address] Basophil percentageOrdered B y: Shruthi Costa on 01-19-2025 Basophils/100 WBC (Bld) 0.5 % 0-1 [facility] Bilirubin directOrdered By: Mikhail Esposito on 01-19-2025 Bilirubin.direct [Mass/Vol] 0.10 mg/dL 0.00-0.30 [facility] Bilirubin, totalOrdered By: Mikhail Esposito on 01-19-2025 Bilirubin [Mass/Vol] 0.28 mg/dL 0.00-1.30 [facility] CBC W/Diff, Automatedon 01-02 Absolute Lymph 1.40 X10 3/uL Normal 0.83-4.51 [facility] Comment on above: Performed By: #### L 100.0100, L503.0106 ####[facility] [address] [place], [address] Absolute Neut 2.4 X10 3/uL Normal 2.0-7.7 [facility] Comment on above: Performed By: #### L 100.0100, L503.0106 ####[facility] [address] [place], [address] Basophils/100 WBC (Bld) 0.5 % Normal 0-1 [facility] Comment on above: Performed By: #### L 100.0100, L503.0106 ####[facility] [address] [place], [address] Eosinophils/100 WBC (Bld) 2.1 % Normal 0-5 [facility] Comment on above: Performed By: #### L 100.0100, L503.0106 ####[facility] [address] [place], [address] Erythrocyte distribution width (RBC) [Ratio] 13.1 % Normal 11.6-14.6 [facility] Comment on above: Performed By: #### L 100.0100, L503.0106 ####[facility] [address] [place], [address] Hematocrit (Bld) [Volume fraction] 34.6 % Low 37-47 [facility] Comment on above: Performed By: #### L 100.0100, L503.0106 ####[facility] [address] [place], [address] Hemoglobin (Bld) [Mass/Vol] 11.8 g/dL Low 12.0-15.0 [facility] Comment on above: Performed By: #### L 100.0100, L503.0106 ####[facility] [address] [place], [address] IG% 0.000 Normal 0.0-0.9 [facility] Comment on above: Result Comment: IG% - Immature Granulocytes (promyelocytes, myelocytes andmetamyelocytes) > 1% indicates that a LEFT SHIFT is Present. Performed By: #### L 100.0100, L503.0106 ####[facility] [address] [place], [address] Lymphocytes/100 WBC (Bld) 32.6 % Normal 19-41 [facility] Comment on above: Performed By: #### L 100.0100, L503.0106 ####[facility] [address] [place], [address] MCH (RBC) [Entitic mass] 32.4 pg High 27.0-32.0 [facility] Comment on above: Performed By: #### L 100.0100, L503.0106 ####[facility] [address] [place], [address] MCHC (RBC) [Mass/Vol] 34.1 g/dL Normal 32-[address] [facility] Comment on above: Performed By: #### L 100.0100, L503.0106 ####[facility] [address] [place], [address] MCV (RBC) [Entitic vol] 95.1 fL Normal 81-99 [facility] Comment on above: Performed By: #### L 100.0100, L503.0106 ####[facility] [address] [place], [address] Monocytes/100 WBC (Bld) 8.6 % Normal 0-10 [facility] Comment on above: Performed By: #### L 100.0100, L503.0106 ####[facility] [address] [place], [address] Neutrophils/100 WBC (Bld) 56.2 % Normal 47-70 [facility] Comment on above: Performed By: #### L 100.0100, L503.0106 ####[facility] [address] [place], [address] Nucleated RBC (Bld) [#/Vol] 0 10*3/uL Normal 0-5 [facility] Comment on above: Performed By: #### L 100.0100, L503.0106 ####[facility] [address] [place], [address] Platelet mean volume (Bld) [Entitic vol] 11.0 fL Normal 6.2-12.0 [facility] Comment on above: Performed By: #### L 100.0100, L503.0106 ####[facility] [address] [place], [address] Platelets (Bld) [#/Vol] 204 10*3/uL Normal 150-450 [facility] Comment on above: Performed By: #### L 100.0100, L503.0106 ####[facility] [address] [place], [address] RBC (Bld) [#/Vol] 3.64 10*6/uL Low 4.2-5.4 [facility] Comment on above: Performed By: #### L 100.0100, L503.0106 ####[facility] [address] [place], [address] RDW SD 46.2 fl High 35.1-43.9 [facility] Comment on above: Performed By: #### L 100.0100, L503.0106 ####[facility] [address] [place], [address] WBC (Bld) [#/Vol] 4.3 10*3/uL Low 4.4-11.0 [facility] Comment on above: Performed By: #### L 100.0100, L503.0106 ####[facility] [address] [place], [address] Calculated very low density lipoprotein (VLDL) cholesterol measurementOrdered By: Mikhail Esposito on 01-19-2025 Calculated very low density lipoprotein (VLDL) cholesterol measurement 22 mg/dL 5-40 [facility] Carbon dioxide, total [Moles /volume] in Central venous bloodOrdered By: Mayda Garcia on 01-19-2025 CO2 [Moles/Vol] 22.9 mmol/L 21.0-32.0 [facility] Chloride assayOrdered By: Jia Garcia on 01-19-2025 Chloride [Moles/Vol] 103 mmol/L 98-108 [facility] Eosinophil percentageOrdered By: Shruthi Costa on 01-19-2025 Eosinophils/100 WBC (Bld) 2.1 % 0-5 [facility] Erythrocyte distribution wid th ratioOrdered By: Shruthi Costa on 01-19-2025 Erythrocyte distribution width (RBC) [Ratio] 13.1 % 11.6-14.6 [facility] Erythrocyte distribution wid th standard deviationOrdered By: Shruthi Costa on 01-19-2025 Erythrocyte distribution width (RBC) [Ratio] 46.2 fl High 35.1-43.9 [facility] Gastroenterology Visit Repor ton 01-19-2025 Gastroenterology Visit Report Normal [facility] Glomerular filtration rate ( GFR) estimation/1.73 sq m using serum, plasma, or whole bOrdered By: Mayda Garcia on 01-19-2025 GFR/1.73 sq M.predicted among non-blacks MDRD (S/P/Bld) [Vol rate/Area] 43 mL/min/{1.73_m2} Low >60 [facility] Hematocrit Auto (Bld) [Volum e fraction]Ordered By: Shruthi Costa on 01-19-2025 Hematocrit (Bld) [Volume fraction] 34.6 % Low 37-47 [facility] Hemoglobin measurementOrdere d By: Shruthi Costa on 01-19-2025 Hemoglobin (Bld) [Mass/Vol] 11.8 g/dL Low 12.0-15.0 [facility] Immature granulocytes/100 WB C Auto (Bld)Ordered By: Shruthi Costa on 01-19-2025 Immature granulocytes/100 WBC (Bld) 0.000 % 0.0-0.9 [facility] LDL calc ser/plasOrdered By: Mikhail Esposito on 01-19-2025 Cholesterol in LDL [Mass/Vol] 162 mg/dL [facility] Lipid Profileon 01-19-2025 CHOL:HDL 4.15 Normal [facility] Comment on above: Performed By: #### L 500.3400, L500.4100 ####[facility] [address] [place], [address] Cholesterol [Mass/Vol] 242 mg/dL High <=200 [facility] Comment on above: Result Comment: Chol esterol level, Desirable <200 mg/dLBorderline high cholesterol 200-239 mg/dLHigh cholesterol >=240 mg/dLRecommendations of the NCEP Adult Treatment Panel for thefollowing risk-cutoff thresholds for the [place] Americanpopulation. Performed By: #### L 500.3400, L500.4100 ####[facility] [address] [place], [address] Cholesterol in HDL [Mass/Vol] 58 mg/dL Normal [facility] Comment on above: Result Comment: Mary Grace onal Cholesterol Education Program (NCEP) guidelines:<40 mg/dL: Low HDL-cholesterol (major risk factor for CHD)>= 60 mg/dL: High HDL-cholesterol (negative risk factor forCHD)HDL-cholesterol is affected by a number of factors, e.g.smoking, exercise, hormones, sex and age. Performed By: #### L 500.3400, L500.4100 ####[facility] [address] [place], [address] Cholesterol in LDL [Mass/Vol] 162 mg/dL Normal [facility] Comment on above: Result Comment: Bord offsts=423-625 mg/dL Higher Tabw=324 mg/dL or greaterFriedwald Equation for LDL-C Performed By: #### L 500.3400, L500.4100 ####[facility] [address] [place], [address] Cholesterol in VLDL [Mass/Vol] 22 mg/dL Normal 5-40 [facility] Comment on above: Performed By: #### L 500.3400, L500.4100 ####[facility] [address] [place], [address] Triglyceride [Mass/Vol] 111 mg/dL Normal W [facility] Comment on above: Result Comment: The drugs N-Acetylcysteine and Metamizole may falselydepress this assay.Normal range: <150 mg/dLBorderline High: 150-199 mg/dLHigh: 200-499 mg/dLVery High: >500 mg/dL Performed By: #### L 500.3400, L500.4100 ####[facility] [address] [place], [address] Liver Profileon 01-19-2025 Albumin [Mass/Vol] 4.0 g/dL Normal 3.4-4.8 [facility] Comment on above: Performed By: #### L 500.3400, L500.4100 ####[facility] [address] [place], [address] ALK PHOS 67 U/L Normal 35-104 [facility] Comment on above: Performed By: #### L 500.3400, L500.4100 ####[facility] [address] [place], [address] ALT [Catalytic activity/Vol] 15 U/L Normal <=34 [facility] Comment on above: Performed By: #### L 500.3400, L500.4100 ####[facility] [address] [place], [address] AST [Catalytic activity/Vol] 22 U/L Normal <=31 [facility] Comment on above: Performed By: #### L 500.3400, L500.4100 ####[facility] [address] [place], [address] Bilirubin [Mass/Vol] 0.28 mg/dL Normal 0.00-1.30 [facility] Comment on above: Performed By: #### L 500.3400, L500.4100 ####[facility] [address] [place], [address] Bilirubin.direct [Mass/Vol] 0.10 mg/dL Normal 0.00-0.30 [facility] Comment on above: Performed By: #### L 500.3400, L500.4100 ####[facility] [address] [place], [address] Globulin (S) [Mass/Vol] 3.0 g/dL Normal 2.2-4.2 [facility] Comment on above: Performed By: #### L 500.3400, L500.4100 ####[facility] [address] [place], [address] T PROT 7.1 g/dL Normal 5.9-8.4 [facility] Comment on above: Performed By: #### L 500.3400, L500.4100 ####[facility] [address] [place], [address] MCV (mean corpuscular volume ) determinationOrdered By: Shruthi Costa on 01-19-2025 MCV (RBC) [Entitic vol] 95.1 fL 81-99 [facility] Mean corpuscular hemoglobin (MCH) determinationOrdered By: Shruthi Costa on 01-19-2025 MCH (RBC) [Entitic mass] 32.4 pg High 27.0-32.0 [facility] Monocyte percentageOrdered B y: Shruthi Costa on 01-19-2025 Monocytes/100 WBC (Bld) 8.6 % 0-10 [facility] Neutrophil percentageOrdered By: Shruthi Costa on 01-19-2025 Neutrophils/100 WBC (Bld) 56.2 % 47-70 [facility] No Panel InformationOrdered By: Mikhail Esposito on 01-19-2025 22 U/L <32 [facility] Platelet countOrdered By: Dimitrios Costa on 01-19-2025 Platelets (Bld) [#/Vol] 204 10*3/uL 150-450 [facility] Potassium measurement (mass/ volume)Ordered By: Mayda Garcia on 01-19-2025 Potassium (Unsp spec) [Mass/Vol] 4.3 mmol/L 3.3-5.1 [facility] RBC Auto (Bld) [#/Vol]Ordere d By: Shruthi Costa on 01-19-2025 RBC (Bld) [#/Vol] 3.64 10*6/uL Low 4.2-5.4 [facility] Serum creatinine measurement (mass/volume)Ordered By: Mayda Garcia on 01-19-2025 Creatinine [Mass/Vol] 1.32 mg/dL High 0.70-1.[address] [facility] Serum globulin measurementOr dered By: Mikhail Esposito on 01-19-2025 Globulin (S) [Mass/Vol] 3.0 g/dL 2.2-4.2 [facility] Serum glucose measurement (m ass/volume)Ordered By: Mayda Garcia on 01-19-2025 Glucose [Mass/Vol] 90 mg/dL 70-99 [facility] Serum or plasma alanine carvalho otransferase (ALT) measurementOrdered By: Mikhail Esposito on 01-19-2025 ALT [Catalytic activity/Vol] 15 U/L <35 [facility] Serum or plasma albumin loretta urement (mass/volume)Ordered By: Mikhail Esposito on 01-19-2025 Albumin [Mass/Vol] 4.0 g/dL 3.4-4.8 [facility] Serum or plasma alkaline dima sphatase measurementOrdered By: Mikhail Esposito on 01-19-2025 ALP [Catalytic activity/Vol] 67 U/L 35-104 [facility] Serum or plasma calcium loretta urement (mass/volume)Ordered By: Mayda Garcia on 01-19-2025 Calcium [Mass/Vol] 9.3 mg/dL 7.6-11.0 [facility] Serum or plasma cholesterol in HDL measurement (mass/volume)Ordered By: Mikhail Esposito on 01-19-2025 Cholesterol in HDL [Mass/Vol] 58 mg/dL >40 [facility] Serum or plasma cholesterol measurement (mass/volume)Ordered By: Mikhail Esposito on 01-19-2025 Cholesterol [Mass/Vol] 242 mg/dL High <201 [facility] Serum or plasma urea nitroge n measurement (mass/volume)Ordered By: Randalconsuelo Garcia on 01-19-2025 Urea nitrogen [Mass/Vol] 29 mg/dL High 4-19 [facility] Sodium levelOrdered By: Noris Garcia on 01-19-2025 Sodium [Moles/Vol] 139 mmol/L 133-145 [facility] Total proteinOrdered By: Fer Esposito on 01-19-2025 Protein [Mass/Vol] 7.1 g/dL 5.9-8.4 [facility] Vitamin B12on 01-19-2025 Cobalamin (Vitamin B12) [Mass/Vol] 332 pg/mL Normal 180-914 [facility] Comment on above: Performed By: #### L 100.0100, L503.0106 ####[facility] [address] [place], [address] Vitamin B12 ser/plasOrdered By: Shruthi Costa on 01-19-2025 Cobalamin (Vitamin B12) [Mass/Vol] 332 pg/mL 180-914 [facility] White blood cell (WBC) count Ordered By: Shruthi Costa on 01-19-2025 WBC (Bld) [#/Vol] 4.3 10*3/uL Low 4.4-11.0 [facility] Internal Medicine Office Vis iton 11-16-2024 Internal Medicine Office Visit Normal [facility] 12 Lead EKGon 11-14-2024 12 Lead EKG Normal [facility] Anion gap in Serum or Plasma Ordered By: Edwin Kaplan on 11-14-2024 Anion gap [Moles/Vol] 11 mmol/L 5-[address] [facility] BUN/creatinine ratioOrdered By: Edwin Kaplan on 11-14-2024 Urea nitrogen/Creatinine [Mass ratio] 17.6 mg/mg 10-20 [facility] Basic Metabolic Profile (BMP )on 11-14-2024 BUN/CRE 17.6 RATIO Normal 10-20 [facility] Comment on above: Performed By: #### L 500.2500, L100.0500, L500.4100 ####[facility] [address] [place], [address] Calcium [Mass/Vol] 8.8 mg/dL Normal 7.6-11.0 [facility] Comment on above: Performed By: #### L 500.2500, L100.0500, L500.4100 ####[facility] [address] [place], [address] Chloride [Moles/Vol] 104 mmol/L Normal 98-108 [facility] Comment on above: Performed By: #### L 500.2500, L100.0500, L500.4100 ####[facility] [address] [place], [address] CO2 [Moles/Vol] 26.0 mmol/L Normal 21.0-32.0 [facility] Comment on above: Performed By: #### L 500.2500, L100.0500, L500.4100 ####[facility] [address] [place], [address] Creatinine [Mass/Vol] 1.11 mg/dL Normal 0.70-1.[address] [facility] Comment on above: Performed By: #### L 500.2500, L100.0500, L500.4100 ####[facility] [address] [place], [address] ECRCL 44.72 ml/min Low 50-250 [facility] Comment on above: Performed By: #### L 500.2500, L100.0500, L500.4100 ####[facility] [address] [place], [address] GAP 11 Normal 5-15 [facility] Comment on above: Performed By: #### L 500.2500, L100.0500, L500.4100 ####[facility] [address] [place], [address] GFR/1.73 sq M.predicted among non-blacks MDRD (S/P/Bld) [Vol rate/Area] 53 mL/min/{1.73_m2} Low >60 [facility] Comment on above: Result Comment: mL/m in/1.73m2 CKD-EPI Creatinine Equation (2020) Performed By: #### L 500.2500, L100.0500, L500.4100 ####[facility] [address] [place], [address] Glucose [Mass/Vol] 111 mg/dL High 70-99 [facility] Comment on above: Performed By: #### L 500.2500, L100.0500, L500.4100 ####[facility] [address] [place], [address] Potassium [Moles/Vol] 4.4 mmol/L Normal 3.3-5.[address] [facility] Comment on above: Performed By: #### L 500.2500, L100.0500, L500.4100 ####[facility] [address] [place], [address] Sodium [Moles/Vol] 142 mmol/L Normal 133-145 [facility] Comment on above: Performed By: #### L 500.2500, L100.0500, L500.4100 ####[facility] [address] [place], [address] Urea nitrogen [Mass/Vol] 20 mg/dL High 4-19 [facility] Comment on above: Performed By: #### L 500.2500, L100.0500, L500.4100 ####[facility] [address] [place], [address] Blood platelets count (numbe r/volume)Ordered By: Edwin Kaplan on 11-14-2024 Platelets (Bld) [#/Vol] 211 10*3/uL 150-450 [facility] CBC-Complete Blood Cnt No Elizabeth hamiltonon 11-14-2024 Erythrocyte distribution width (RBC) [Ratio] 14.1 % Normal 11.6-14.6 [facility] Comment on above: Performed By: #### L 500.2500, L100.0500, L500.4100 ####[facility] [address] [place], [address] Hematocrit (Bld) [Volume fraction] 34.3 % Low 37-47 [facility] Comment on above: Performed By: #### L 500.2500, L100.0500, L500.4100 ####[facility] [address] [place], [address] Hemoglobin (Bld) [Mass/Vol] 11.5 g/dL Low 12.0-15.0 [facility] Comment on above: Performed By: #### L 500.2500, L100.0500, L500.4100 ####[facility] [address] [place], [address] MCH (RBC) [Entitic mass] 32.5 pg High 27.0-32.0 [facility] Comment on above: Performed By: #### L 500.2500, L100.0500, L500.4100 ####[facility] [address] [place], [address] MCHC (RBC) [Mass/Vol] 33.5 g/dL Normal 32-[address] [facility] Comment on above: Performed By: #### L 500.2500, L100.0500, L500.4100 ####[facility] [address] [place], [address] MCV (RBC) [Entitic vol] 96.9 fL Normal 81-99 [facility] Comment on above: Performed By: #### L 500.2500, L100.0500, L500.4100 ####[facility] [address] [place], [address] Platelet mean volume (Bld) [Entitic vol] 10.9 fL Normal 6.2-12.0 [facility] Comment on above: Performed By: #### L 500.2500, L100.0500, L500.4100 ####[facility] [address] [place], [address] Platelets (Bld) [#/Vol] 211 10*3/uL Normal 150-450 [facility] Comment on above: Performed By: #### L 500.2500, L100.0500, L500.4100 ####[facility] [address] [place], [address] RDW SD 50.5 fl High 35.1-43.9 [facility] Comment on above: Performed By: #### L 500.2500, L100.0500, L500.4100 ####[facility] [address] [place], [address] RBC (Bld) [#/Vol] 3.54 10*6/uL Low 4.2-5.4 [facility] Comment on above: Performed By: #### L 500.2500, L100.0500, L500.4100 ####[facility] [address] [place], [address] WBC (Bld) [#/Vol] 5.6 10*3/uL Normal 4.4-11.0 [facility] Comment on above: Performed By: #### L 500.2500, L100.0500, L500.4100 ####[facility] [address] [place], [address] Calculated very low density lipoprotein (VLDL) cholesterol measurementOrdered By: Edwin Kaplan on 11-14-2024 Calculated very low density lipoprotein (VLDL) cholesterol measurement 17 mg/dL 5-40 [facility] Carbon dioxide, total [Moles /volume] in Central venous bloodOrdered By: Edwin Kaplan on 11-14-2024 CO2 [Moles/Vol] 26.0 mmol/L 21.0-32.0 [facility] Cardiovascular stress test r eportOrdered By: Winston Johnson on 11-14-2024 Study report [facility] Work Phone: [phone] Chloride assayOrdered By: Ino Kaplan on 11-14-2024 Chloride [Moles/Vol] 104 mmol/L 98-108 [facility] Consultation - Cardiologyon 11-14-2024 Consultation - Cardiology Normal [facility] Electrocardiogram reportOrde red By: Aleksandr Salinas on 11-14-2024 EKG study [facility] Work Phone: [phone] Erythrocyte distribution wid th ratioOrdered By: Edwin Kaplan on 11-14-2024 Erythrocyte distribution width (RBC) [Ratio] 14.1 % 11.6-14.6 [facility] Glomerular filtration rate ( GFR) estimation/1.73 sq m using serum, plasma, or whole bOrdered By: Edwin Kaplan on 11-14-2024 GFR/1.73 sq M.predicted among non-blacks MDRD (S/P/Bld) [Vol rate/Area] 53 mL/min/{1.73_m2} Low >60 [facility] Hematocrit Auto (Bld) [Volum e fraction]Ordered By: Edwin Kaplan on 11-14-2024 Hematocrit (Bld) [Volume fraction] 34.3 % Low 37-47 [facility] Hemoglobin measurementOrdere d By: Edwin Kaplan on 11-14-2024 Hemoglobin (Bld) [Mass/Vol] 11.5 g/dL Low 12.0-15.0 [facility] LDL calc ser/plasOrdered By: Edwin Kaplan on 11-14-2024 Cholesterol in LDL [Mass/Vol] 162 mg/dL [facility] Lipid Profileon 11-14-2024 CHOL:HDL 4.47 Normal [facility] Comment on above: Performed By: #### L 500.2500, L100.0500, L500.4100 ####[facility] [address] [place], [address] Cholesterol [Mass/Vol] 230 mg/dL High <=200 [facility] Comment on above: Result Comment: Chol esterol level, Desirable <200 mg/dLBorderline high cholesterol 200-239 mg/dLHigh cholesterol >=240 mg/dLRecommendations of the NCEP Adult Treatment Panel for thefollowing risk-cutoff thresholds for the [place] [facility]. Performed By: #### L 500.2500, L100.0500, L500.4100 ####[facility] [address] [place], [address] Cholesterol in HDL [Mass/Vol] 52 mg/dL Normal [facility] Comment on above: Result Comment: Mary Grace onal Cholesterol Education Program (NCEP) guidelines:<40 mg/dL: Low HDL-cholesterol (major risk factor for CHD)>= 60 mg/dL: High HDL-cholesterol (negative risk factor forCHD)HDL-cholesterol is affected by a number of factors, e.g.smoking, exercise, hormones, sex and age. Performed By: #### L 500.2500, L100.0500, L500.4100 ####[facility] [address] [place], [address] Cholesterol in LDL [Mass/Vol] 162 mg/dL Normal [facility] Comment on above: Result Comment: Bord zhojif=862-017 mg/dL Higher Oavm=296 mg/dL or greater Performed By: #### L 500.2500, L100.0500, L500.4100 ####[facility] [address] [place], [address] Cholesterol in VLDL [Mass/Vol] 17 mg/dL Normal 5-40 [facility] Comment on above: Performed By: #### L 500.2500, L100.0500, L500.4100 ####[facility] [address] [place], [address] Triglyceride [Mass/Vol] 85 mg/dL Normal [facility] Comment on above: Result Comment: The drugs N-Acetylcysteine and Metamizole may falselydepress this assay.Normal range: <150 mg/dLBorderline High: 150-199 mg/dLHigh: 200-499 mg/dLVery High: >500 mg/dL Performed By: #### L 500.2500, L100.0500, L500.4100 ####[facility] [address] [place], [address] MCV (mean corpuscular volume ) determinationOrdered By: Edwin Kaplan on 11-14-2024 MCV (RBC) [Entitic vol] 96.9 fL 81-99 [facility] Mean corpuscular hemoglobin (MCH) determinationOrdered By: Edwin Kaplan on 11-14-2024 MCH (RBC) [Entitic mass] 32.5 pg High 27.0-32.0 [facility] Potassium measurement (mass/ volume)Ordered By: Edwin Kaplan on 11-14-2024 Potassium (Unsp spec) [Mass/Vol] 4.4 mmol/L 3.3-5.1 [facility] RBC Auto (Bld) [#/Vol]Ordere d By: Edwin Kaplan on 11-14-2024 RBC (Bld) [#/Vol] 3.54 10*6/uL Low 4.2-5.4 [facility] RDWOrdered By: Edwin aponte on 11-14-2024 RDW 50.5 fl High 35.1-43.9 [facility] RESPIRATORY PANEL MOLECULARo n 11-14-2024 RP PANEL Normal [facility] Comment on above: Performed By: #### M 100.638 ####[facility] [address] [place], [place], [address] Serum creatinine measurement (mass/volume)Ordered By: Edwin Kaplan on 11-14-2024 Creatinine [Mass/Vol] 1.11 mg/dL 0.70-1.[address] [facility] Serum glucose measurement (m ass/volume)Ordered By: Edwin Kaplan on 11-14-2024 Glucose [Mass/Vol] 111 mg/dL High 70-99 [facility] Serum or plasma calcium loretta urement (mass/volume)Ordered By: Edwin Kaplan on 11-14-2024 Calcium [Mass/Vol] 8.8 mg/dL 7.6-11.0 [facility] Serum or plasma cholesterol in HDL measurement (mass/volume)Ordered By: Edwin Kaplan on 11-14-2024 Cholesterol in HDL [Mass/Vol] 52 mg/dL >40 [facility] Serum or plasma cholesterol measurement (mass/volume)Ordered By: Edwin Kaplan on 11-14-2024 Cholesterol [Mass/Vol] 230 mg/dL High <201 [facility] Serum or plasma urea nitroge n measurement (mass/volume)Ordered By: Edwin Kaplan on 11-14-2024 Urea nitrogen [Mass/Vol] 20 mg/dL High 4-19 [facility] Sodium levelOrdered By: Cayden Kaplan on 11-14-2024 Sodium [Moles/Vol] 142 mmol/L 133-145 [facility] Stress Reporton 11-14-2024 Stress Report Normal [facility] White blood cell (WBC) count Ordered By: Edwin Kaplan on 11-14-2024 WBC (Bld) [#/Vol] 5.6 10*3/uL 4.4-11.0 [facility] 12 Lead EKGon 11-13-2024 12 Lead EKG Normal [facility] 12 Lead EKG Normal [facility] Absolute lymphocyte countOrd ered By: Turner Armendariz on 11-13-2024 Lymphocytes Auto (Unsp spec) [#/Vol] 1.65 10*3/uL 0.83-4.51 [facility] Anion gap in Serum or Plasma Ordered By: Turner Armendariz on 11-13-2024 Anion gap [Moles/Vol] 12 mmol/L 5-[address] [facility] Automated lymphocyte count a s percentage of total leukocytesOrdered By: Turner Armendariz on 11-13-2024 Lymphocytes/100 WBC Auto (Unsp spec) 35.9 % 19-41 [facility] BUN/creatinine ratioOrdered By: Turner Armendariz on 11-13-2024 Urea nitrogen/Creatinine [Mass ratio] 25.2 mg/mg High 10-20 [facility] Basic Metabolic Profile (BMP )on 11-13-2024 BUN/CRE 25.2 RATIO High 10-20 [facility] Comment on above: Performed By: #### L 100.0100, L500.2500, L501.4021 ####[facility] [address] [place], [address] Calcium [Mass/Vol] 9.0 mg/dL Normal 7.6-11.0 [facility] Comment on above: Performed By: #### L 100.0100, L500.2500, L501.4021 ####[facility] [address] [place], [address] Chloride [Moles/Vol] 104 mmol/L Normal 98-108 [facility] Comment on above: Performed By: #### L 100.0100, L500.2500, L501.4021 ####[facility] [address] [place], [address] CO2 [Moles/Vol] 23.9 mmol/L Normal 21.0-32.0 [facility] Comment on above: Performed By: #### L 100.0100, L500.2500, L501.4021 ####[facility] [address] [place], [address] Creatinine [Mass/Vol] 0.82 mg/dL Normal 0.70-1.[address] [facility] Comment on above: Performed By: #### L 100.0100, L500.2500, L501.4021 ####[facility] [address] [place], [address] GAP 12 Normal 5-15 [facility] Comment on above: Performed By: #### L 100.0100, L500.2500, L501.4021 ####[facility] [address] [place], [address] GFR/1.73 sq M.predicted among non-blacks MDRD (S/P/Bld) [Vol rate/Area] 77 mL/min/{1.73_m2} Normal >60 [facility] Comment on above: Result Comment: mL/m in/1.73m2 CKD-EPI Creatinine Equation (2020) Performed By: #### L 100.0100, L500.2500, L501.4021 ####[facility] [address] [place], [address] Glucose [Mass/Vol] 126 mg/dL High 70-99 [facility] Comment on above: Performed By: #### L 100.0100, L500.2500, L501.4021 ####[facility] [address] [place], [address] Potassium [Moles/Vol] 4.5 mmol/L Normal 3.3-5.[address] [facility] Comment on above: Result Comment: Hemo lysis present, Results??could be affected.?? Performed By: #### L 100.0100, L500.2500, L501.4021 ####[facility] [address] [place], [address] Sodium [Moles/Vol] 140 mmol/L Normal 133-145 [facility] Comment on above: Performed By: #### L 100.0100, L500.2500, L501.4021 ####[facility] [address] [place], [address] Urea nitrogen [Mass/Vol] 21 mg/dL High 4-19 [facility] Comment on above: Performed By: #### L 100.0100, L500.2500, L501.4021 ####[facility] [address] [place], [address] Basophil percentageOrdered B y: Turner Quinonesdavid on 11-13-2024 Basophils/100 WBC (Bld) 0.2 % 0-1 [facility] CBC W/Diff, Automatedon 11-01 Absolute Lymph 1.65 X10 3/uL Normal 0.83-4.51 [facility] Comment on above: Performed By: #### L 100.0100, L500.2500, L501.4021 ####[facility] [address] [place], [address] Absolute Neut 2.6 X10 3/uL Normal 2.0-7.7 [facility] Comment on above: Performed By: #### L 100.0100, L500.2500, L501.4021 ####[facility] [address] [place], [address] Basophils/100 WBC (Bld) 0.2 % Normal 0-1 [facility] Comment on above: Performed By: #### L 100.0100, L500.2500, L501.4021 ####[facility] [address] [place], [address] Eosinophils/100 WBC (Bld) 1.7 % Normal 0-5 [facility] Comment on above: Performed By: #### L 100.0100, L500.2500, L501.4021 ####[facility] [address] [place], [address] Erythrocyte distribution width (RBC) [Ratio] 14.2 % Normal 11.6-14.6 [facility] Comment on above: Performed By: #### L 100.0100, L500.2500, L501.4021 ####[facility] [address] [place], [address] Hematocrit (Bld) [Volume fraction] 33.3 % Low 37-47 [facility] Comment on above: Performed By: #### L 100.0100, L500.2500, L501.4021 ####[facility] [address] [place], [address] Hemoglobin (Bld) [Mass/Vol] 11.1 g/dL Low 12.0-15.0 [facility] Comment on above: Performed By: #### L 100.0100, L500.2500, L501.4021 ####[facility] [address] [place], [address] IG% 0.400 Normal 0.0-0.9 [facility] Comment on above: Result Comment: IG% - Immature Granulocytes (promyelocytes, myelocytes andmetamyelocytes) > 1% indicates that a LEFT SHIFT is Present. Performed By: #### L 100.0100, L500.2500, L501.4021 ####[facility] [address] [place], [address] Lymphocytes/100 WBC (Bld) 35.9 % Normal 19-41 [facility] Comment on above: Performed By: #### L 100.0100, L500.2500, L501.4021 ####[facility] [address] [place], [address] MCH (RBC) [Entitic mass] 32.6 pg High 27.0-32.0 [facility] Comment on above: Performed By: #### L 100.0100, L500.2500, L501.4021 ####[facility] [address] [place], [address] MCHC (RBC) [Mass/Vol] 33.3 g/dL Normal 32-[address] [facility] Comment on above: Performed By: #### L 100.0100, L500.2500, L501.4021 ####[facility] [address] [place], [address] MCV (RBC) [Entitic vol] 97.7 fL Normal 81-99 [facility] Comment on above: Performed By: #### L 100.0100, L500.2500, L501.4021 ####[facility] [address] [place], [address] Monocytes/100 WBC (Bld) 6.3 % Normal 0-10 [facility] Comment on above: Performed By: #### L 100.0100, L500.2500, L501.4021 ####[facility] [address] [place], [address] Neutrophils/100 WBC (Bld) 55.5 % Normal 47-70 [facility] Comment on above: Performed By: #### L 100.0100, L500.2500, L501.4021 ####[facility] [address] [place], [address] Nucleated RBC (Bld) [#/Vol] 0 10*3/uL Normal 0-5 [facility] Comment on above: Performed By: #### L 100.0100, L500.2500, L501.4021 ####[facility] [address] [place], [address] Platelet mean volume (Bld) [Entitic vol] 11.5 fL Normal 6.2-12.0 [facility] Comment on above: Performed By: #### L 100.0100, L500.2500, L501.4021 ####[facility] [address] [place], [address] Platelets (Bld) [#/Vol] 224 10*3/uL Normal 150-450 [facility] Comment on above: Performed By: #### L 100.0100, L500.2500, L501.4021 ####[facility] [address] [place], [address] RBC (Bld) [#/Vol] 3.41 10*6/uL Low 4.2-5.4 [facility] Comment on above: Performed By: #### L 100.0100, L500.2500, L501.4021 ####[facility] [address] [place], [address] RDW SD 50.8 fl High 35.1-43.9 [facility] Comment on above: Performed By: #### L 100.0100, L500.2500, L501.4021 ####[facility] [address] [place], [place], [address] WBC (Bld) [#/Vol] 4.6 10*3/uL Normal 4.4-11.0 [facility] Comment on above: Performed By: #### L 100.0100, L500.2500, L501.4021 ####[facility] [address] [place], [address] Carbon dioxide, total [Moles /volume] in Central venous bloodOrdered By: Turner Armendariz on 11-13-2024 CO2 [Moles/Vol] 23.9 mmol/L 21.0-32.0 [facility] Chest 1 View (Portable)on Chest 1 View (Portable) Normal [facility] Chloride assayOrdered By: Sabiha Armendariz on 11-13-2024 Chloride [Moles/Vol] 104 mmol/L 98-108 [facility] D-Dimer Quantitative (DVT/PE )on 11-13-2024 D-DIMER QUANT 0.27 FEU/ug/m Normal 0.27-0.49 [facility] Comment on above: Result Comment: NORM AL D-Dimer level (<0.50) indicates no DVT or PE. Performed By: #### L 300.8000 ####[facility] [address] [place], [place], [id number] Emergency Department Summary on 11-13-2024 Emergency Department Summary Normal [facility] Eosinophil percentageOrdered By: Turner Armendariz on 11-13-2024 Eosinophils/100 WBC (Bld) 1.7 % 0-5 [facility] Erythrocyte distribution wid th ratioOrdered By: Remus Ungdavid on 11-13-2024 Erythrocyte distribution width (RBC) [Ratio] 14.2 % 11.6-14.6 [facility] Erythrocyte distribution wid th standard deviationOrdered By: Rem Ungdavid on 11-13-2024 Erythrocyte distribution width (RBC) [Ratio] 50.8 fl High 35.1-43.9 [facility] Glomerular filtration rate ( GFR) estimation/1.73 sq m using serum, plasma, or whole bOrdered By: Turner Armendariz on 11-13-2024 GFR/1.73 sq M.predicted among non-blacks MDRD (S/P/Bld) [Vol rate/Area] 77 mL/min/{1.73_m2} >60 [facility] H AND P Exam - Hospitaliston 11-13-2024 H&P Exam - Hospitalist Normal [facility] Hematocrit Auto (Bld) [Volum e fraction]Ordered By: [facility] Arm[facility] on 11-13-2024 Hematocrit (Bld) [Volume fraction] 33.3 % Low 37-47 [facility] Hemoglobin A1con 11-13-2024 HbA1c (Bld) [Mass fraction] 6.6 % High <=5.6 [facility] Comment on above: Result Comment: Norm al < 5.7 % Prediabetic 5.7 - 6.4 % Diabetic >or= 6.5 % Please note range changes. Performed By: #### L 501.9985 ####[facility] [address] [place], [place], [address] Hemoglobin A1c percentageOrd ered By: Edwin Kaplan on 11-13-2024 HbA1c (Bld) [Mass fraction] 6.6 % High <5.7 [facility] Hemoglobin measurementOrdere d By: Turner Armendariz on 11-13-2024 Hemoglobin (Bld) [Mass/Vol] 11.1 g/dL Low 12.0-15.0 [facility] Immature granulocytes/100 WB C Auto (Bld)Ordered By: Turner Armendariz on 11-13-2024 Immature granulocytes/100 WBC (Bld) 0.400 % 0.0-0.9 [facility] L499.0042on 11-13-2024 Trop T High Sen 18 ng/L High <=14 [facility] Comment on above: Performed By: #### L 499.0042 ####[facility] [address] [place], [place], [address] L499.0043on 11-13-2024 Trop T High Sen 10 ng/L Normal <=14 [facility] Comment on above: Performed By: #### L 499.0043 ####[facility] [address] [place], [address] L501.4021on 11-13-2024 Trop T High Sen 9 ng/L Normal <=14 [facility] Comment on above: Performed By: #### L 100.0100, L500.2500, L501.4021 ####[facility] [address] [place], [address] L503.7505on 11-13-2024 Natriuretic peptide B (Bld) [Mass/Vol] 77 pg/mL Normal <=900 [facility] Comment on above: Result Comment: Hear t Failure Unlikely: < 300 pg/mLHeart Failure Likely< 50 Years: > 450 pg/mL50-75 Years: > 900 pg/mL>75 Years: > 1800 pg/mL Performed By: #### L 503.7505, L501.9520 ####[facility] [address] [place], [address] MCV (mean corpuscular volume ) determinationOrdered By: Turner Armendariz on 11-13-2024 MCV (RBC) [Entitic vol] 97.7 fL 81-99 [facility] Mean corpuscular hemoglobin (MCH) determinationOrdered By: Turner Armendariz on 11-13-2024 MCH (RBC) [Entitic mass] 32.6 pg High 27.0-32.0 [facility] Monocyte percentageOrdered B y: Remus Armendariz on 11-13-2024 Monocytes/100 WBC (Bld) 6.3 % 0-10 [facility] Natriuretic peptide.B prohor thai N-Terminal [Mass/volume] in Serum or PlasmaOrdered By: Edwin Kaplan on 11-13-2024 Natriuretic peptide.B prohormone N-Terminal [Mass/Vol] 77 pg/mL <900 [facility] Neutrophil percentageOrdered By: Turner Armendariz on 11-13-2024 Neutrophils/100 WBC (Bld) 55.5 % 47-70 [facility] Platelet countOrdered By: Sabiha Armendariz on 11-13-2024 Platelets (Bld) [#/Vol] 224 10*3/uL 150-450 [facility] Potassium measurement (mass/ volume)Ordered By: Turner Quinonesdavid on 11-13-2024 Potassium (Unsp spec) [Mass/Vol] 4.5 mmol/L 3.3-5.1 [facility] RBC Auto (Bld) [#/Vol]Ordere d By: Turner Armendariz on 11-13-2024 RBC (Bld) [#/Vol] 3.41 10*6/uL Low 4.2-5.4 [facility] Respiratory pathogens detect ion panel by molecular detection methodOrdered By: Edwin Kaplan on 11-13-2024 Respiratory pathogens DNA and RNA panel GERONIMO+probe (Resp) [facility] Serum creatinine measurement (mass/volume)Ordered By: Turner Armendariz on 11-13-2024 Creatinine [Mass/Vol] 0.82 mg/dL 0.70-1.[address] [facility] Serum glucose measurement (m ass/volume)Ordered By: Turner Armendariz on 11-13-2024 Glucose [Mass/Vol] 126 mg/dL High 70-99 [facility] Serum or plasma calcium loretta urement (mass/volume)Ordered By: Natalie Marcello on 11-13-2024 Calcium [Mass/Vol] 9.0 mg/dL 7.6-11.0 [facility] Serum or plasma urea nitroge n measurement (mass/volume)Ordered By: Turner Armendariz on 11-13-2024 Urea nitrogen [Mass/Vol] 21 mg/dL High 4-19 [facility] Sodium levelOrdered By: Felisha Armendariz on 11-13-2024 Sodium [Moles/Vol] 140 mmol/L 133-145 [facility] TSH DL <= 0.005 mIU/L QnOrde red By: Edwin Kaplan on 11-13-2024 TSH Qn 3.680 uIU/mL 0.300-4.200 [facility] Thyroid Stim Hormone (TSH)on 11-13-2024 TSH 3.680 uIU/mL Normal 0.300-4.200 [facility] Comment on above: Performed By: #### L 503.7505, L501.9520 ####[facility] [address] [place], [address] Troponin T.cardiac [Mass/vol ume] in Serum or Plasma by High sensitivity methodOrdered By: Turner Armendariz on 11-13-2024 Troponin T.cardiac High sensitivity method [Mass/Vol] 10 ng/L <14 [facility] Troponin T.cardiac High sensitivity method [Mass/Vol] 18 ng/L High <14 [facility] Troponin T.cardiac High sensitivity method [Mass/Vol] 9 ng/L Invalid Interpretation Code <14 [facility] White blood cell (WBC) count Ordered By: Turner Armendariz on 11-13-2024 WBC (Bld) [#/Vol] 4.6 10*3/uL 4.4-11.0 [facility] CBC-Complete Blood Cnt No Di ffon 11-11-2024 HCT Normal 37-47 [facility] Comment on above: Result Comment: UTO X2 ATTEMPTS - PATIENT LEFT TO GO TO SLEEP STUDY NEVERCAME BACK - EEGGEMAN Performed By: #### L 500.4050, L100.0500 ####[facility] [address] [place], [address] HGB Normal 12.0-15.0 [facility] Comment on above: Result Comment: UTO X2 ATTEMPTS - PATIENT LEFT TO GO TO SLEEP STUDY NEVERCAME BACK - EEGGEMAN Performed By: #### L 500.4050, L100.0500 ####[facility] [address] [place], [address] MCH Normal 27.0-32.0 [facility] Comment on above: Result Comment: UTO X2 ATTEMPTS - PATIENT LEFT TO GO TO SLEEP STUDY NEVERCAME BACK - EEGGEMAN Performed By: #### L 500.4050, L100.0500 ####[facility] [address] [place], [address] MCHC Normal 32-36 [facility] Comment on above: Result Comment: UTO X2 ATTEMPTS - PATIENT LEFT TO GO TO SLEEP STUDY NEVERCAME BACK - EEGGEMAN Performed By: #### L 500.4050, L100.0500 ####[facility] [address] [place], [address] MCV Normal 81-99 [facility] Comment on above: Result Comment: UTO X2 ATTEMPTS - PATIENT LEFT TO GO TO SLEEP STUDY NEVERCAME BACK - EEGGEMAN Performed By: #### L 500.4050, L100.0500 ####[facility] [address] [place], [address] PLT Normal 150-450 [facility] Comment on above: Result Comment: UTO X2 ATTEMPTS - PATIENT LEFT TO GO TO SLEEP STUDY NEVERCAME BACK - EEGGEMAN Performed By: #### L 500.4050, L100.0500 ####[facility] [address] [place], [address] RBC Normal 4.2-5.4 [facility] Comment on above: Result Comment: UTO X2 ATTEMPTS - PATIENT LEFT TO GO TO SLEEP STUDY NEVERCAME BACK - EEGGEMAN Performed By: #### L 500.4050, L100.0500 ####[facility] [address] [place], [address] RDW CV Normal 11.6-14.6 [facility] Comment on above: Result Comment: UTO X2 ATTEMPTS - PATIENT LEFT TO GO TO SLEEP STUDY NEVERCAME BACK - EEGGEMAN Performed By: #### L 500.4050, L100.0500 ####[facility] [address] [place], [address] RDW SD Normal 35.1-43.9 [facility] Comment on above: Result Comment: UTO X2 ATTEMPTS - PATIENT LEFT TO GO TO SLEEP STUDY NEVERCAME BACK - EEGGEMAN Performed By: #### L 500.4050, L100.0500 ####[facility] [address] [place], [address] WBC Normal 4.4-11.0 [facility] Comment on above: Result Comment: UTO X2 ATTEMPTS - PATIENT LEFT TO GO TO SLEEP STUDY NEVERCAME BACK - EEGGEMAN Performed By: #### L 500.4050, L100.0500 ####[facility] [address] [place], [address] Comprehensive Metabolic Prof ilon 11-11-2024 ALB Normal 3.4-4.8 [facility] Comment on above: Result Comment: UTO X2 ATTEMPTS - PATIENT LEFT TO GO TO SLEEP STUDY NEVERCAME BACK - EEGGEMAN Performed By: #### L 500.4050, L100.0500 ####[facility] [address] [place], [address] ALK PHOS Normal 35-104 [facility] Comment on above: Result Comment: UTO X2 ATTEMPTS - PATIENT LEFT TO GO TO SLEEP STUDY NEVERCAME BACK - EEGGEMAN Performed By: #### L 500.4050, L100.0500 ####[facility] [address] [place], [address] ALT Normal <=34 [facility] Comment on above: Result Comment: UTO X2 ATTEMPTS - PATIENT LEFT TO GO TO SLEEP STUDY NEVERCAME BACK - EEGGEMAN Performed By: #### L 500.4050, L100.0500 ####[facility] [address] [place], [address] AST Normal <=31 [facility] Comment on above: Result Comment: UTO X2 ATTEMPTS - PATIENT LEFT TO GO TO SLEEP STUDY NEVERCAME BACK - EEGGEMAN Performed By: #### L 500.4050, L100.0500 ####[facility] [address] [place], [address] BUN Normal 4-19 [facility] Comment on above: Result Comment: UTO X2 ATTEMPTS - PATIENT LEFT TO GO TO SLEEP STUDY NEVERCAME BACK - EEGGEMAN Performed By: #### L 500.4050, L100.0500 ####[facility] [address] [place], [address] BUN/CRE Normal 10-20 [facility] Comment on above: Result Comment: UTO X2 ATTEMPTS - PATIENT LEFT TO GO TO SLEEP STUDY NEVERCAME BACK - EEGGEMAN Performed By: #### L 500.4050, L100.0500 ####[facility] [address] [place], [address] Calcium Normal 7.6-11.0 [facility] Comment on above: Result Comment: UTO X2 ATTEMPTS - PATIENT LEFT TO GO TO SLEEP STUDY NEVERCAME BACK - EEGGEMAN Performed By: #### L 500.4050, L100.0500 ####[facility] [address] [place], [address] CL Normal 98-108 [facility] Comment on above: Result Comment: UTO X2 ATTEMPTS - PATIENT LEFT TO GO TO SLEEP STUDY NEVERCAME BACK - EEGGEMAN Performed By: #### L 500.4050, L100.0500 ####[facility] [address] [place], [address] CO2 Normal 21.0-32.0 [facility] Comment on above: Result Comment: UTO X2 ATTEMPTS - PATIENT LEFT TO GO TO SLEEP STUDY NEVERCAME BACK - EEGGEMAN Performed By: #### L 500.4050, L100.0500 ####[facility] [address] [place], [address] CREAT,SERUM Normal 0.70-1.20 [facility] Comment on above: Result Comment: UTO X2 ATTEMPTS - PATIENT LEFT TO GO TO SLEEP STUDY NEVERCAME BACK - EEGGEMAN Performed By: #### L 500.4050, L100.0500 ####[facility] [address] [place], [address] eGFR Normal >60 [facility] Comment on above: Result Comment: UTO X2 ATTEMPTS - PATIENT LEFT TO GO TO SLEEP STUDY NEVERCAME BACK - EEGGEMAN Performed By: #### L 500.4050, L100.0500 ####[facility] [address] [place], [address] GAP Normal 5-15 [facility] Comment on above: Result Comment: UTO X2 ATTEMPTS - PATIENT LEFT TO GO TO SLEEP STUDY NEVERCAME BACK - EEGGEMAN Performed By: #### L 500.4050, L100.0500 ####[facility] [address] [place], [address] GLU Normal 70-99 [facility] Comment on above: Result Comment: UTO X2 ATTEMPTS - PATIENT LEFT TO GO TO SLEEP STUDY NEVERCAME BACK - EEGGEMAN Performed By: #### L 500.4050, L100.0500 ####[facility] [address] [place], [address] Potassium Normal 3.3-5.1 [facility] Comment on above: Result Comment: UTO X2 ATTEMPTS - PATIENT LEFT TO GO TO SLEEP STUDY NEVERCAME BACK - EEGGEMAN Performed By: #### L 500.4050, L100.0500 ####[facility] [address] [place], [address] T BILI Normal 0.00-1.30 [facility] Comment on above: Result Comment: UTO X2 ATTEMPTS - PATIENT LEFT TO GO TO SLEEP STUDY NEVERCAME BACK - EEGGEMAN Performed By: #### L 500.4050, L100.0500 ####[facility] [address] [place], [address] T PROT Normal 5.9-8.4 [facility] Comment on above: Result Comment: UTO X2 ATTEMPTS - PATIENT LEFT TO GO TO SLEEP STUDY NEVERCAME BACK - EEGGEMAN Performed By: #### L 500.4050, L100.0500 ####[facility] [address] [place], [address] Comprehensive Metabolic Profil Normal 133-145 [facility] Comment on above: Result Comment: UTO X2 ATTEMPTS - PATIENT LEFT TO GO TO SLEEP STUDY NEVERCAME BACK - EEGGEMAN Performed By: #### L 500.4050, L100.0500 ####[facility] [address] [place], [address] Neurology Visit Reporton Neurology Visit Report Normal [facility] Office Visit Reporton 2024 Office Visit Report Normal [facility] Pulmonary Visit Reporton Pulmonary Visit Report Normal [facility] RUBI w/ Reflex Mult Confirmon 09-27-2024 ANTI-DNA (DS)AB TNP Normal [facility] Comment on above: Performed By: #### L 101.9900, L505.7010, L3100.5450, L500.2500, L100.0100, L501.6710 ####[facility] [address] [place], [address] ANTI-SS-A TNP Normal [facility] Comment on above: Performed By: #### L 101.9900, L505.7010, L3100.5450, L500.2500, L100.0100, L501.6710 ####[facility] [address] [place], [address] ANTI-SS-B TNP Normal [facility] Comment on above: Performed By: #### L 101.9900, L505.7010, L3100.5450, L500.2500, L100.0100, L501.6710 ####[facility] [address] [place], [address] Absolute lymphocyte countOrd ered By: Mayda Garcia on 09-22-2024 Lymphocytes Auto (Unsp spec) [#/Vol] 1.43 10*3/uL 0.83-4.51 [facility] Anion gap in Serum or Plasma Ordered By: Mayda Garcia on 09-22-2024 Anion gap [Moles/Vol] 11 mmol/L 5-[address] [facility] Automated lymphocyte count a s percentage of total leukocytesOrdered By: Mayda Garcia on 09-22-2024 Lymphocytes/100 WBC Auto (Unsp spec) 33.1 % 19-41 [facility] BUN/creatinine ratioOrdered By: Mayda Garcia on 09-22-2024 Urea nitrogen/Creatinine [Mass ratio] 26.3 mg/mg High 10- [facility] Basic Metabolic Profile (BMP )on 09-22-2024 BUN/CRE 26.3 RATIO High - [facility] Comment on above: Performed By: #### L 101.9900, L505.7010, L3100.5450, L500.2500, L100.0100, L501.6710 ####[facility] [address] [place], [address] Calcium [Mass/Vol] 8.4 mg/dL Normal 7.6-11.0 [facility] Comment on above: Performed By: #### L 101.9900, L505.7010, L3100.5450, L500.2500, L100.0100, L501.6710 ####[facility] [address] [place], [address] Chloride [Moles/Vol] 108 mmol/L Normal 98-108 [facility] Comment on above: Performed By: #### L 101.9900, L505.7010, L3100.5450, L500.2500, L100.0100, L501.6710 ####[facility] [address] [place], [address] CO2 [Moles/Vol] 21.6 mmol/L Normal 21.0-32.0 [facility] Comment on above: Performed By: #### L 101.9900, L505.7010, L3100.5450, L500.2500, L100.0100, L501.6710 ####[facility] [address] [place], [address] Creatinine [Mass/Vol] 0.86 mg/dL Normal 0.70-1.[address] [facility] Comment on above: Performed By: #### L 101.9900, L505.7010, L3100.5450, L500.2500, L100.0100, L501.6710 ####[facility] [address] [place], [address] GAP 11 Normal 5-15 [facility] Comment on above: Performed By: #### L 101.9900, L505.7010, L3100.5450, L500.2500, L100.0100, L501.6710 ####[facility] [address] [place], [address] GFR/1.73 sq M.predicted among non-blacks MDRD (S/P/Bld) [Vol rate/Area] 72 mL/min/{1.73_m2} Normal >60 [facility] Comment on above: Result Comment: mL/m in/1.73m2 CKD-EPI Creatinine Equation (2020) Performed By: #### L 101.9900, L505.7010, L3100.5450, L500.2500, L100.0100, L501.6710 ####[facility] [address] [place], [address] Glucose [Mass/Vol] 105 mg/dL High 70-99 [facility] Comment on above: Performed By: #### L 101.9900, L505.7010, L3100.5450, L500.2500, L100.0100, L501.6710 ####[facility] [address] [place], [address] Potassium [Moles/Vol] 4.1 mmol/L Normal 3.3-5.[address] [facility] Comment on above: Performed By: #### L 101.9900, L505.7010, L3100.5450, L500.2500, L100.0100, L501.6710 ####[facility] [address] [place], [address] Sodium [Moles/Vol] 140 mmol/L Normal 133-145 [facility] Comment on above: Performed By: #### L 101.9900, L505.7010, L3100.5450, L500.2500, L100.0100, L501.6710 ####[facility] [address] [place], [address] Urea nitrogen [Mass/Vol] 23 mg/dL High 4-19 [facility] Comment on above: Performed By: #### L 101.9900, L505.7010, L3100.5450, L500.2500, L100.0100, L501.6710 ####[facility] [address] [place], [place], [address] Basophil percentageOrdered B y: Mayda Garcia on 09-22-2024 Basophils/100 WBC (Bld) 0.7 % 0-1 W [facility] Bilirubin directOrdered By: Mikhail Esposito on 09-22-2024 Bilirubin.direct [Mass/Vol] 0.15 mg/dL 0.00-0.30 [facility] Bilirubin, totalOrdered By: Mikhail Esposito on 09-22-2024 Bilirubin [Mass/Vol] 0.33 mg/dL 0.00-1.30 [facility] CBC W/Diff, Automatedon 09-02 Absolute Lymph 1.43 X10 3/uL Normal 0.83-4.51 [facility] Comment on above: Performed By: #### L 101.9900, L505.7010, L3100.5450, L500.2500, L100.0100, L501.6710 ####[facility] [address] [place], [address] Absolute Neut 2.4 X10 3/uL Normal 2.0-7.7 [facility] Comment on above: Performed By: #### L 101.9900, L505.7010, L3100.5450, L500.2500, L100.0100, L501.6710 ####[facility] [address] [place], [address] Basophils/100 WBC (Bld) 0.7 % Normal 0-1 [facility] Comment on above: Performed By: #### L 101.9900, L505.7010, L3100.5450, L500.2500, L100.0100, L501.6710 ####[facility] [address] [place], [address] Eosinophils/100 WBC (Bld) 2.3 % Normal 0-5 [facility] Comment on above: Performed By: #### L 101.9900, L505.7010, L3100.5450, L500.2500, L100.0100, L501.6710 ####[facility] [address] [place], [address] Erythrocyte distribution width (RBC) [Ratio] 13.9 % Normal 11.6-14.6 [facility] Comment on above: Performed By: #### L 101.9900, L505.7010, L3100.5450, L500.2500, L100.0100, L501.6710 ####[facility] [address] [place], [address] Hematocrit (Bld) [Volume fraction] 33.7 % Low 37-47 [facility] Comment on above: Performed By: #### L 101.9900, L505.7010, L3100.5450, L500.2500, L100.0100, L501.6710 ####[facility] [address] [place], [address] Hemoglobin (Bld) [Mass/Vol] 11.2 g/dL Low 12.0-15.0 [facility] Comment on above: Performed By: #### L 101.9900, L505.7010, L3100.5450, L500.2500, L100.0100, L501.6710 ####[facility] [address] [place], [address] IG% 0.500 Normal 0.0-0.9 [facility] Comment on above: Result Comment: IG% - Immature Granulocytes (promyelocytes, myelocytes andmetamyelocytes) > 1% indicates that a LEFT SHIFT is Present. Performed By: #### L 101.9900, L505.7010, L3100.5450, L500.2500, L100.0100, L501.6710 ####[facility] [address] [place], [address] Lymphocytes/100 WBC (Bld) 33.1 % Normal 19-41 [facility] Comment on above: Performed By: #### L 101.9900, L505.7010, L3100.5450, L500.2500, L100.0100, L501.6710 ####[facility] [address] [place], [address] MCH (RBC) [Entitic mass] 32.5 pg High 27.0-32.0 [facility] Comment on above: Performed By: #### L 101.9900, L505.7010, L3100.5450, L500.2500, L100.0100, L501.6710 ####[facility] [address] [place], [address] MCHC (RBC) [Mass/Vol] 33.2 g/dL Normal 32-[address] [facility] Comment on above: Performed By: #### L 101.9900, L505.7010, L3100.5450, L500.2500, L100.0100, L501.6710 ####[facility] [address] [place], [address] MCV (RBC) [Entitic vol] 97.7 fL Normal 81-99 [facility] Comment on above: Performed By: #### L 101.9900, L505.7010, L3100.5450, L500.2500, L100.0100, L501.6710 ####[facility] [address] [place], [address] Monocytes/100 WBC (Bld) 8.1 % Normal 0-10 [facility] Comment on above: Performed By: #### L 101.9900, L505.7010, L3100.5450, L500.2500, L100.0100, L501.6710 ####[facility] [address] [place], [address] Neutrophils/100 WBC (Bld) 55.3 % Normal 47-70 [facility] Comment on above: Performed By: #### L 101.9900, L505.7010, L3100.5450, L500.2500, L100.0100, L501.6710 ####[facility] [address] [place], [address] Nucleated RBC (Bld) [#/Vol] 0 10*3/uL Normal 0-5 [facility] Comment on above: Performed By: #### L 101.9900, L505.7010, L3100.5450, L500.2500, L100.0100, L501.6710 ####[facility] [address] [place], [address] Platelet mean volume (Bld) [Entitic vol] 12.2 fL High 6.2-12.0 [facility] Comment on above: Performed By: #### L 101.9900, L505.7010, L3100.5450, L500.2500, L100.0100, L501.6710 ####[facility] [address] [place], [address] Platelets (Bld) [#/Vol] 155 10*3/uL Normal 150-450 [facility] Comment on above: Performed By: #### L 101.9900, L505.7010, L3100.5450, L500.2500, L100.0100, L501.6710 ####[facility] [address] [place], [address] RBC (Bld) [#/Vol] 3.45 10*6/uL Low 4.2-5.4 [facility] Comment on above: Performed By: #### L 101.9900, L505.7010, L3100.5450, L500.2500, L100.0100, L501.6710 ####[facility] [address] [place], [address] RDW SD 49.9 fl High 35.1-43.9 [facility] Comment on above: Performed By: #### L 101.9900, L505.7010, L3100.5450, L500.2500, L100.0100, L501.6710 ####[facility] [address] [place], [address] WBC (Bld) [#/Vol] 4.3 10*3/uL Low 4.4-11.0 [facility] Comment on above: Performed By: #### L 101.9900, L505.7010, L3100.5450, L500.2500, L100.0100, L501.6710 ####[facility] [address] [place], [address] CRPon 09-22-2024 C-REACTIVE PROT 3.46 mg/L High 0.0-3.0 [facility] Comment on above: Performed By: #### L 101.9900, L505.7010, L3100.5450, L500.2500, L100.0100, L501.6710 ####[facility] [address] [place], [place], [id number] Calculated very low density lipoprotein (VLDL) cholesterol measurementOrdered By: Mikhail Apodacaiter on 09-22-2024 Calculated very low density lipoprotein (VLDL) cholesterol measurement 14 mg/dL 5-40 [facility] Carbon dioxide, total [Moles /volume] in Central venous bloodOrdered By: Mayda Garcia on 09-22-2024 CO2 [Moles/Vol] 21.6 mmol/L 21.0-32.0 [facility] Chloride assayOrdered By: Jia Garcia on 09-22-2024 Chloride [Moles/Vol] 108 mmol/L 98-108 [facility] Eosinophil percentageOrdered By: Mayda Garcia on 09-22-2024 Eosinophils/100 WBC (Bld) 2.3 % 0-5 [facility] Erythrocyte Sed Rateon 09-22 SED RATE 5 mm/hr Normal 0-30 [facility] Comment on above: Performed By: #### L 101.9900, L505.7010, L3100.5450, L500.2500, L100.0100, L501.6710 ####[facility] [address] [place], [place], [id number] Erythrocyte distribution wid th ratioOrdered By: Mayda Garcia on 09-22-2024 Erythrocyte distribution width (RBC) [Ratio] 13.9 % 11.6-14.6 [facility] Erythrocyte distribution wid th standard deviationOrdered By: Mayda Garcia on 09-22-2024 Erythrocyte distribution width (RBC) [Ratio] 49.9 fl High 35.1-43.9 [facility] Erythrocyte sedimentation ra teOrdered By: Mayda Garcia on 09-22-2024 ESR (Bld) [Velocity] 5 mm/h 0-30 [facility] Glomerular filtration rate ( GFR) estimation/1.73 sq m using serum, plasma, or whole bOrdered By: Mayda Garcia on 09-22-2024 GFR/1.73 sq M.predicted among non-blacks MDRD (S/P/Bld) [Vol rate/Area] 72 mL/min/{1.73_m2} >60 [facility] Hematocrit Auto (Bld) [Volum e fraction]Ordered By: Mayda Garcia on 09-22-2024 Hematocrit (Bld) [Volume fraction] 33.7 % Low 37-47 [facility] Hemoglobin measurementOrdere d By: Mayda Garcia on 09-22-2024 Hemoglobin (Bld) [Mass/Vol] 11.2 g/dL Low 12.0-15.0 [facility] Immature granulocytes/100 WB C Auto (Bld)Ordered By: Mayda Garcia on 09-22-2024 Immature granulocytes/100 WBC (Bld) 0.500 % 0.0-0.9 [facility] LDL calc ser/plasOrdered By: Mikhail Esposito on 09-22-2024 Cholesterol in LDL [Mass/Vol] 135 mg/dL [facility] Lipid Profileon 09-22-2024 CHOL:HDL 3.58 Normal [facility] Comment on above: Performed By: #### L 500.3400, L500.4100 ####[facility] [address] [place], [place], [id number] Cholesterol [Mass/Vol] 206 mg/dL High <=200 [facility] Comment on above: Result Comment: Chol esterol level, Desirable <200 mg/dLBorderline high cholesterol 200-239 mg/dLHigh cholesterol >=240 mg/dLRecommendations of the NCEP Adult Treatment Panel for thefollowing risk-cutoff thresholds for the [place] American[facility] hospitalulation. Performed By: #### L 500.3400, L500.4100 ####[facility] [address] [place], [address] Cholesterol in HDL [Mass/Vol] 58 mg/dL Normal [facility] Comment on above: Result Comment: [facility] onal Cholesterol Education Program (NCEP) guidelines:<40 mg/dL: Low HDL-cholesterol (major risk factor for CHD)>= 60 mg/dL: High HDL-cholesterol (negative risk factor forCHD)HDL-cholesterol is affected by a number of factors, e.g.smoking, exercise, hormones, sex and age. Performed By: #### L 500.3400, L500.4100 ####[facility] [address] [place], [address] Cholesterol in LDL [Mass/Vol] 135 mg/dL Normal [facility] Comment on above: Result Comment: Bord wobljp=326-642 mg/dL Higher Tgbd=608 mg/dL or greater Performed By: #### L 500.3400, L500.4100 ####[facility] [address] [place], [address] Cholesterol in VLDL [Mass/Vol] 14 mg/dL Normal 5-40 [facility] Comment on above: Performed By: #### L 500.3400, L500.4100 ####[facility] [address] [place], [address] Triglyceride [Mass/Vol] 69 mg/dL Normal [facility] Comment on above: Result Comment: The drugs N-Acetylcysteine and Metamizole may falselydepress this assay.Normal range: <150 mg/dLBorderline High: 150-199 mg/dLHigh: 200-499 mg/dLVery High: >500 mg/dL Performed By: #### L 500.3400, L500.4100 ####[facility] [address] [place], [address] Liver Profileon 09-22-2024 Albumin [Mass/Vol] 3.8 g/dL Normal 3.4-4.8 [facility] Comment on above: Performed By: #### L 500.3400, L500.4100 ####[facility] [address] [place], [address] ALK PHOS 71 U/L Normal 35-104 [facility] Comment on above: Performed By: #### L 500.3400, L500.4100 ####[facility] [address] [place], [address] ALT [Catalytic activity/Vol] 19 U/L Normal <=34 [facility] Comment on above: Performed By: #### L 500.3400, L500.4100 ####[facility] [address] [place], [address] AST [Catalytic activity/Vol] 21 U/L Normal <=31 [facility] Comment on above: Performed By: #### L 500.3400, L500.4100 ####[facility] [address] [place], [address] Bilirubin [Mass/Vol] 0.33 mg/dL Normal 0.00-1.30 [facility] Comment on above: Performed By: #### L 500.3400, L500.4100 ####[facility] [address] [place], [address] Bilirubin.direct [Mass/Vol] 0.15 mg/dL Normal 0.00-0.30 [facility] Comment on above: Performed By: #### L 500.3400, L500.4100 ####[facility] [address] [place], [address] Globulin (S) [Mass/Vol] 2.7 g/dL Normal 2.2-4.2 [facility] Comment on above: Performed By: #### L 500.3400, L500.4100 ####[facility] [address] [place], [address] T PROT 6.5 g/dL Normal 5.9-8.4 [facility] Comment on above: Performed By: #### L 500.3400, L500.4100 ####[facility] [address] [place], [address] MCV (mean corpuscular volume ) determinationOrdered By: Mayda Garcia on 09-22-2024 MCV (RBC) [Entitic vol] 97.7 fL 81-99 [facility] Mean corpuscular hemoglobin (MCH) determinationOrdered By: Mayda Garcia on 09-22-2024 MCH (RBC) [Entitic mass] 32.5 pg High 27.0-32.0 [facility] Monocyte percentageOrdered B y: Mayda Garcia on 09-22-2024 Monocytes/100 WBC (Bld) 8.1 % 0-10 [facility] Neutrophil percentageOrdered By: Jiamichellerosemary Shamartoyachandana on 09-22-2024 Neutrophils/100 WBC (Bld) 55.3 % 47-70 [facility] No Panel InformationOrdered By: Mikhail Apodacaiter on 09-22-2024 21 U/L <32 [facility] Platelet countOrdered By: Jia edconsuelo Garcia on 09-22-2024 Platelets (Bld) [#/Vol] 155 10*3/uL 150-450 [facility] Potassium measurement (mass/ volume)Ordered By: Mayda Garcia on 09-22-2024 Potassium (Unsp spec) [Mass/Vol] 4.1 mmol/L 3.3-5.1 [facility] RBC Auto (Bld) [#/Vol]Ordere d By: Mayda Garcia on 09-22-2024 RBC (Bld) [#/Vol] 3.45 10*6/uL Low 4.2-5.4 [facility] Rheumatoid Factoron 09-23-19 25 RHEUMATOID FAC < 10.0 Normal <15 [facility] Comment on above: Performed By: #### L 101.9900, L505.7010, L3100.5450, L500.2500, L100.0100, L501.6710 ####[facility] [address] [place], [address] Serum DNA double strand anti body assay (units/volume)Ordered By: Mayda Garcia on 09-22-2024 DNA double strand Ab Qn (S) TNP [facility] Serum Scl-70 antibody assay (units/volume)Ordered By: Mayda Garcia on 09-22-2024 SCL-70 extractable nuclear Ab Qn (S) TNP [facility] Serum creatinine measurement (mass/volume)Ordered By: Mayda Garcia on 09-22-2024 Creatinine [Mass/Vol] 0.86 mg/dL 0.70-1.[address] [facility] Serum globulin measurementOr dered By: Mikhail Esposito on 09-22-2024 Globulin (S) [Mass/Vol] 2.7 g/dL 2.2-4.2 [facility] Serum glucose measurement (m ass/volume)Ordered By: Mayda Garcia on 09-22-2024 Glucose [Mass/Vol] 105 mg/dL High 70-99 [facility] Serum or plasma C reactive p rotein measurement (mass/volume)Ordered By: Mayda Garcia on 09-22-2024 CRP [Mass/Vol] 3.46 mg/L High 0.0-3.0 [facility] Serum or plasma alanine carvalho otransferase (ALT) measurementOrdered By: Mikhail Esposito on 09-22-2024 ALT [Catalytic activity/Vol] 19 U/L <35 [facility] Serum or plasma albumin loretta urement (mass/volume)Ordered By: Mikhail Esposito on 09-22-2024 Albumin [Mass/Vol] 3.8 g/dL 3.4-4.8 [facility] Serum or plasma alkaline dima sphatase measurementOrdered By: Mikhail Esposito on 09-22-2024 ALP [Catalytic activity/Vol] 71 U/L 35-104 [facility] Serum or plasma calcium loretta urement (mass/volume)Ordered By: Mayda Garcia on 09-22-2024 Calcium [Mass/Vol] 8.4 mg/dL 7.6-11.0 [facility] Serum or plasma cholesterol in HDL measurement (mass/volume)Ordered By: Mikhail Esposito on 09-22-2024 Cholesterol in HDL [Mass/Vol] 58 mg/dL >40 [facility] Serum or plasma cholesterol measurement (mass/volume)Ordered By: Mikhail Esposito on 09-22-2024 Cholesterol [Mass/Vol] 206 mg/dL High <201 [facility] Serum or plasma urea nitroge n measurement (mass/volume)Ordered By: Mayda Garcia on 09-22-2024 Urea nitrogen [Mass/Vol] 23 mg/dL High - [facility] Serum rheumatoid factor dete ctionOrdered By: Mayda Garcia on 09-22-2024 Rheumatoid factor Ql (S) < 10.0 IU/mL <15 [facility] Sodium levelOrdered By: Jiamichelle rosemary Shamartyoachandana on 09-22-2024 Sodium [Moles/Vol] 140 mmol/L 133-145 [facility] Total proteinOrdered By: Fer Esposito on 09-22-2024 Protein [Mass/Vol] 6.5 g/dL 5.9-8.4 [facility] White blood cell (WBC) count Ordered By: Mayda Garcia on 09-22-2024 WBC (Bld) [#/Vol] 4.3 10*3/uL Low 4.4-11.0 [facility] Internal Medicine Office Vis iton 09-21-2024 Internal Medicine Office Visit Normal [facility] Cardiology Visit Reporton Cardiology Visit Report Normal [facility] 12 Lead EKGon 09-16-2024 12 Lead EKG Normal [facility] Absolute lymphocyte countOrd ered By: Azam Frey on 09-16-2024 Lymphocytes Auto (Unsp spec) [#/Vol] 1.40 10*3/uL 0.83-4.51 [facility] Anion gap in Serum or Plasma Ordered By: Azam Frey on 09-16-2024 Anion gap [Moles/Vol] 10 mmol/L 5-[address] [facility] Automated lymphocyte count a s percentage of total leukocytesOrdered By: Azam Frey on 09-16-2024 Lymphocytes/100 WBC Auto (Unsp spec) 33.3 % 19-41 [facility] BUN/creatinine ratioOrdered By: Azam Frey on 09-16-2024 Urea nitrogen/Creatinine [Mass ratio] 28.6 mg/mg High 02-20 [facility] Basic Metabolic Profile (BMP )on 09-16-2024 BUN/CRE 28.6 RATIO High 02-20 [facility] Comment on above: Performed By: #### L 503.7505, L500.2500, L501.4021, L100.0100 ####[facility] [address] [place] [place], [address] Calcium [Mass/Vol] 8.7 mg/dL Normal 7.6-11.0 [facility] Comment on above: Performed By: #### L 503.7505, L500.2500, L501.4021, L100.0100 ####[facility] [address] [place], [address] Chloride [Moles/Vol] 109 mmol/L High 98-108 [facility] Comment on above: Performed By: #### L 503.7505, L500.2500, L501.4021, L100.0100 ####[facility] [address] [place], [address] CO2 [Moles/Vol] 23.0 mmol/L Normal 21.0-32.0 [facility] Comment on above: Performed By: #### L 503.7505, L500.2500, L501.4021, L100.0100 ####[facility] [address] [place], [address] Creatinine [Mass/Vol] 0.77 mg/dL Normal 0.70-1.[address] [facility] Comment on above: Performed By: #### L 503.7505, L500.2500, L501.4021, L100.0100 ####[facility] [address] [place], [address] GAP 10 Normal 5-15 [facility] Comment on above: Performed By: #### L 503.7505, L500.2500, L501.4021, L100.0100 ####[facility] [address] [place], [address] GFR/1.73 sq M.predicted among non-blacks MDRD (S/P/Bld) [Vol rate/Area] 82 mL/min/{1.73_m2} Normal >60 [facility] Comment on above: Result Comment: mL/m in/1.73m2 CKD-EPI Creatinine Equation (2020) Performed By: #### L 503.7505, L500.2500, L501.4021, L100.0100 ####[facility] [address] [place], [address] Glucose [Mass/Vol] 76 mg/dL Normal 70-99 [facility] Comment on above: Performed By: #### L 503.7505, L500.2500, L501.4021, L100.0100 ####[facility] [address] [place], [address] Potassium [Moles/Vol] 3.7 mmol/L Normal 3.3-5.[address] [facility] Comment on above: Performed By: #### L 503.7505, L500.2500, L501.4021, L100.0100 ####[facility] [address] [place], [address] Sodium [Moles/Vol] 142 mmol/L Normal 133-145 [facility] Comment on above: Performed By: #### L 503.7505, L500.2500, L501.4021, L100.0100 ####[facility] [address] [place], [address] Urea nitrogen [Mass/Vol] 22 mg/dL High 4-19 [facility] Comment on above: Performed By: #### L 503.7505, L500.2500, L501.4021, L100.0100 ####[facility] [address] [place], [address] Basophil percentageOrdered B y: Azam Frey on 09-16-2024 Basophils/100 WBC (Bld) 0.2 % 0-1 [facility] CBC W/Diff, Automatedon 09-01 Absolute Lymph 1.40 X10 3/uL Normal 0.83-4.51 [facility] Comment on above: Performed By: #### L 503.7505, L500.2500, L501.4021, L100.0100 ####[facility] [address] [place], [address] Absolute Neut 2.3 X10 3/uL Normal 2.0-7.7 [facility] Comment on above: Performed By: #### L 503.7505, L500.2500, L501.4021, L100.0100 ####[facility] [address] [place], [address] Basophils/100 WBC (Bld) 0.2 % Normal 0-1 [facility] Comment on above: Performed By: #### L 503.7505, L500.2500, L501.4021, L100.0100 ####[facility] [address] [place], [address] Eosinophils/100 WBC (Bld) 2.4 % Normal 0-5 [facility] Comment on above: Performed By: #### L 503.7505, L500.2500, L501.4021, L100.0100 ####[facility] [address] [place], [address] Erythrocyte distribution width (RBC) [Ratio] 13.8 % Normal 11.6-14.6 [facility] Comment on above: Performed By: #### L 503.7505, L500.2500, L501.4021, L100.0100 ####[facility] [address] [place], [address] Hematocrit (Bld) [Volume fraction] 25.8 % Low 37-47 [facility] Comment on above: Performed By: #### L 503.7505, L500.2500, L501.4021, L100.0100 ####[facility] [address] [place], [address] Hemoglobin (Bld) [Mass/Vol] 8.6 g/dL Low 12.0-15.0 [facility] Comment on above: Performed By: #### L 503.7505, L500.2500, L501.4021, L100.0100 ####[facility] [address] [place], [address] IG% 0.500 Normal 0.0-0.9 [facility] Comment on above: Result Comment: IG% - Immature Granulocytes (promyelocytes, myelocytes andmetamyelocytes) > 1% indicates that a LEFT SHIFT is Present. Performed By: #### L 503.7505, L500.2500, L501.4021, L100.0100 ####[facility] [address] [place], [address] Lymphocytes/100 WBC (Bld) 33.3 % Normal 19-41 [facility] Comment on above: Performed By: #### L 503.7505, L500.2500, L501.4021, L100.0100 ####[facility] [address] [place], [address] MCH (RBC) [Entitic mass] 32.5 pg High 27.0-32.0 [facility] Comment on above: Performed By: #### L 503.7505, L500.2500, L501.4021, L100.0100 ####[facility] [address] [place], [address] MCHC (RBC) [Mass/Vol] 33.3 g/dL Normal 32-[address] [facility] Comment on above: Performed By: #### L 503.7505, L500.2500, L501.4021, L100.0100 ####[facility] [address] [place], [address] MCV (RBC) [Entitic vol] 97.4 fL Normal 81-99 [facility] Comment on above: Performed By: #### L 503.7505, L500.2500, L501.4021, L100.0100 ####[facility] [address] [place], [address] Monocytes/100 WBC (Bld) 8.6 % Normal 0-10 [facility] Comment on above: Performed By: #### L 503.7505, L500.2500, L501.4021, L100.0100 ####[facility] [address] [place], [address] Neutrophils/100 WBC (Bld) 55.0 % Normal 47-70 [facility] Comment on above: Performed By: #### L 503.7505, L500.2500, L501.4021, L100.0100 ####[facility] [address] [place], [address] Nucleated RBC (Bld) [#/Vol] 0 10*3/uL Normal 0-5 [facility] Comment on above: Performed By: #### L 503.7505, L500.2500, L501.4021, L100.0100 ####[facility] [address] [place], [address] Platelet mean volume (Bld) [Entitic vol] 11.6 fL Normal 6.2-12.0 [facility] Comment on above: Performed By: #### L 503.7505, L500.2500, L501.4021, L100.0100 ####[facility] [address] [place], [address] Platelets (Bld) [#/Vol] 117 10*3/uL Low 150-450 [facility] Comment on above: Performed By: #### L 503.7505, L500.2500, L501.4021, L100.0100 ####[facility] [address] [place], [address] RBC (Bld) [#/Vol] 2.65 10*6/uL Low 4.2-5.4 [facility] Comment on above: Performed By: #### L 503.7505, L500.2500, L501.4021, L100.0100 ####[facility] [address] [place], [address] RDW SD 48.9 fl High 35.1-43.9 [facility] Comment on above: Performed By: #### L 503.7505, L500.2500, L501.4021, L100.0100 ####[facility] [address] [place], [address] WBC (Bld) [#/Vol] 4.2 10*3/uL Low 4.4-11.0 [facility] Comment on above: Performed By: #### L 503.7505, L500.2500, L501.4021, L100.0100 ####[facility] [address] [place], [address] Carbon dioxide, total [Moles /volume] in Central venous bloodOrdered By: Azam Frey on 09-16-2024 CO2 [Moles/Vol] 23.0 mmol/L 21.0-32.0 [facility] Chest 1 View (Portable)on Chest 1 View (Portable) Normal [facility] Chloride assayOrdered By: Hugh Frey on 09-16-2024 Chloride [Moles/Vol] 109 mmol/L High 98-108 [facility] Emergency Department Summary on 09-16-2024 Emergency Department Summary Normal [facility] Eosinophil percentageOrdered By: Azam Frey on 09-16-2024 Eosinophils/100 WBC (Bld) 2.4 % 0-5 [facility] Erythrocyte distribution wid th ratioOrdered By: Azam Frey on 09-16-2024 Erythrocyte distribution width (RBC) [Ratio] 13.8 % 11.6-14.6 [facility] Erythrocyte distribution wid th standard deviationOrdered By: Azam Frey on 09-16-2024 Erythrocyte distribution width (RBC) [Ratio] 48.9 fl High 35.1-43.9 [facility] Glomerular filtration rate ( GFR) estimation/1.73 sq m using serum, plasma, or whole bOrdered By: Azam Reynalise on 09-16-2024 GFR/1.73 sq M.predicted among non-blacks MDRD (S/P/Bld) [Vol rate/Area] 82 mL/min/{1.73_m2} >60 [facility] Hematocrit Auto (Bld) [Volum e fraction]Ordered By: Azam Frey on 09-16-2024 Hematocrit (Bld) [Volume fraction] 25.8 % Low 37-47 [facility] Hemoglobin measurementOrdere d By: Azam Maribelllise on 09-16-2024 Hemoglobin (Bld) [Mass/Vol] 8.6 g/dL Low 12.0-15.0 [facility] Immature granulocytes/100 WB C Auto (Bld)Ordered By: Azam Frey on 09-16-2024 Immature granulocytes/100 WBC (Bld) 0.500 % 0.0-0.9 [facility] L499.0042on 09-16-2024 Trop T High Sen 7 ng/L Normal <=14 [facility] Comment on above: Result Comment: Hemo lysis present, Results??could be affected.?? Performed By: #### L 499.0042 ####[facility] [address] [place], [address] L499.0043on 09-16-2024 Trop T High Sen Normal <=14 [facility] Comment on above: Result Comment: Canc elled via OM: Order cancelled - Patient discharged Performed By: #### L 499.0043 ####[facility] [address] [place], [address] L501.4021on 09-16-2024 Trop T High Sen 8 ng/L Normal <=14 [facility] Comment on above: Performed By: #### L 503.7505, L500.2500, L501.4021, L100.0100 ####[facility] [address] [place], [address] L503.7505on 09-16-2024 Natriuretic peptide B (Bld) [Mass/Vol] 239 pg/mL Normal <=900 [facility] Comment on above: Result Comment: Hear t Failure Unlikely: < 300 pg/mLHeart Failure Likely< 50 Years: > 450 pg/mL50-75 Years: > 900 pg/mL>75 Years: > 1800 pg/mL Performed By: #### L 503.7505, L500.2500, L501.4021, L100.0100 ####[facility] [address] [place], [address] MCV (mean corpuscular volume ) determinationOrdered By: Azam Frey on 09-16-2024 MCV (RBC) [Entitic vol] 97.4 fL 81-99 [facility] Mean corpuscular hemoglobin (MCH) determinationOrdered By: Azam Frey on 09-16-2024 MCH (RBC) [Entitic mass] 32.5 pg High 27.0-32.0 [facility] Monocyte percentageOrdered B y: Azam Frey on 09-16-2024 Monocytes/100 WBC (Bld) 8.6 % 0-10 [facility] Natriuretic peptide.B prohor thai N-Terminal [Mass/volume] in Serum or PlasmaOrdered By: Azam Frey on 09-16-2024 Natriuretic peptide.B prohormone N-Terminal [Mass/Vol] 239 pg/mL <900 [facility] Neutrophil percentageOrdered By: Azam Frey on 09-16-2024 Neutrophils/100 WBC (Bld) 55.0 % 47-70 [facility] Platelet countOrdered By: Hugh Frey on 09-16-2024 Platelets (Bld) [#/Vol] 117 10*3/uL Low 150-450 [facility] Potassium measurement (mass/ volume)Ordered By: Azam Frey on 09-16-2024 Potassium (Unsp spec) [Mass/Vol] 3.7 mmol/L 3.3-5.1 [facility] RBC Auto (Bld) [#/Vol]Ordere d By: Azam Frey on 09-16-2024 RBC (Bld) [#/Vol] 2.65 10*6/uL Low 4.2-5.4 [facility] Serum creatinine measurement (mass/volume)Ordered By: Azam Frey on 09-16-2024 Creatinine [Mass/Vol] 0.77 mg/dL 0.70-1.[address] [facility] Serum glucose measurement (m ass/volume)Ordered By: Azam Frey on 09-16-2024 Glucose [Mass/Vol] 76 mg/dL 70-99 [facility] Serum or plasma calcium loretta urement (mass/volume)Ordered By: Azam Frey on 09-16-2024 Calcium [Mass/Vol] 8.7 mg/dL 7.6-11.0 [facility] Serum or plasma urea nitroge n measurement (mass/volume)Ordered By: Azam Frey on 09-16-2024 Urea nitrogen [Mass/Vol] 22 mg/dL High 4-19 [facility] Sodium levelOrdered By: Azam Frey on 09-16-2024 Sodium [Moles/Vol] 142 mmol/L 133-145 [facility] Stool Occult Blood iFOBon STOB Negative Normal [facility] Comment on above: Performed By: #### M 100.7900 ####[facility] [address] [place], [address] Stool gastrointestinal hemog lobin detection by immunologic methodOrdered By: Azam Frey on 09-16-2024 Lower GI hemoglobin IA Ql (Stl) [facility] Troponin T.cardiac [Mass/vol ume] in Serum or Plasma by High sensitivity methodOrdered By: Azam Frey on 09-16-2024 Troponin T.cardiac High sensitivity method [Mass/Vol] 7 ng/L <14 [facility] Troponin T.cardiac High sensitivity method [Mass/Vol] 8 ng/L <14 [facility] White blood cell (WBC) count Ordered By: Azam Frey on 09-16-2024 WBC (Bld) [#/Vol] 4.2 10*3/uL Low 4.4-11.0 [facility] Internal Medicine Office Vis iton 08-10-2024 Internal Medicine Office Visit Normal [facility] No Panel InformationOrdered By: Mayda Garcia on 08-10-2024 6.4 % High 4.2-6.3 [facility] Chest PA and Lateralon 07-15 Chest PA and Lateral Normal [facility] Emergency Department Summary on 07-15-2024 Emergency Department Summary Normal [facility] 12 Lead EKGon 07-14-2024 12 Lead EKG Normal [facility] Absolute lymphocyte countOrd ered By: Ulisses Chan on 07-14-2024 Lymphocytes Auto (Unsp spec) [#/Vol] 1.82 10*3/uL 0.83-4.51 [facility] Absolute neutrophil countOrd ered By: Ulisses Chan on 07-14-2024 Absolute neutrophil count 2.4 X10^3/uL 2.0-7.7 [facility] Anion gap [Moles/Vol]Ordered By: Ulisses Chan on 07-14-2024 Anion gap in Serum or Plasma 12 09-15 [facility] Anion gap in Serum or Plasma Ordered By: Ulisses Chan on 07-14-2024 Anion gap [Moles/Vol] 12 mmol/L 09-[address] [facility] Automated lymphocyte count a s percentage of total leukocytesOrdered By: Ulisses Chan on 07-14-2024 Lymphocytes/100 WBC Auto (Unsp spec) 38.7 % 19-41 [facility] BUN/creatinine ratioOrdered By: Ulisses Chan on 07-14-2024 Urea nitrogen/Creatinine [Mass ratio] 21.2 mg/mg High 10- [facility] BUN/creatinine ratio 21.2 RATIO High 10-20 [facility] Basic Metabolic Profile (BMP )on 07-14-2024 BUN/CRE 21.2 RATIO High - [facility] Comment on above: Performed By: #### L 501.4021, L100.0100, L500.2500 ####[facility] [address] [place], [address] Calcium [Mass/Vol] 9.4 mg/dL Normal 7.6-11.0 [facility] Comment on above: Performed By: #### L 501.4021, L100.0100, L500.2500 ####[facility] [address] [place], [address] Chloride [Moles/Vol] 106 mmol/L Normal 98-108 [facility] Comment on above: Performed By: #### L 501.4021, L100.0100, L500.2500 ####[facility] [address] [place], [address] CO2 [Moles/Vol] 23.7 mmol/L Normal 21.0-32.0 [facility] Comment on above: Performed By: #### L 501.4021, L100.0100, L500.2500 ####[facility] [address] [place], [address] Creatinine [Mass/Vol] 0.94 mg/dL Normal 0.70-1.[address] [facility] Comment on above: Performed By: #### L 501.4021, L100.0100, L500.2500 ####[facility] [address] [place], [address] ECRCL 52.46 ml/min Normal 50-250 [facility] Comment on above: Performed By: #### L 501.4021, L100.0100, L500.2500 ####[facility] [address] [place], [address] GAP 12 Normal 5-15 [facility] Comment on above: Performed By: #### L 501.4021, L100.0100, L500.2500 ####[facility] [address] [place], [address] GFR/1.73 sq M.predicted among non-blacks MDRD (S/P/Bld) [Vol rate/Area] 65 mL/min/{1.73_m2} Normal >60 [facility] Comment on above: Result Comment: mL/m in/1.73m2 CKD-EPI Creatinine Equation (2020) Performed By: #### L 501.4021, L100.0100, L500.2500 ####[facility] [address] [place], [address] Glucose [Mass/Vol] 141 mg/dL High 70-99 [facility] Comment on above: Performed By: #### L 501.4021, L100.0100, L500.2500 ####[facility] [address] [place], [address] Potassium [Moles/Vol] 3.9 mmol/L Normal 3.3-5.[address] [facility] Comment on above: Performed By: #### L 501.4021, L100.0100, L500.2500 ####[facility] [address] [place], [address] Sodium [Moles/Vol] 142 mmol/L Normal 133-145 [facility] Comment on above: Performed By: #### L 501.4021, L100.0100, L500.2500 ####[facility] [address] [place], [address] Urea nitrogen [Mass/Vol] 20 mg/dL High 4-19 [facility] Comment on above: Performed By: #### L 501.4021, L100.0100, L500.2500 ####[facility] [address] [place], [address] Basophil percentageOrdered B y: Ulisses Le on 07-14-2024 Basophils/100 WBC (Bld) 0.2 % 0-1 [facility] Basophil percentage 0.2 % 0-1 [facility] CBC W/Diff, Automatedon 07-02 Absolute Lymph 1.82 X10 3/uL Normal 0.83-4.51 [facility] Comment on above: Performed By: #### L 501.4021, L100.0100, L500.2500 ####[facility] [address] [place], [address] Absolute Neut 2.4 X10 3/uL Normal 2.0-7.7 [facility] Comment on above: Performed By: #### L 501.4021, L100.0100, L500.2500 ####[facility] [address] [place], [address] Basophils/100 WBC (Bld) 0.2 % Normal 0-1 [facility] Comment on above: Performed By: #### L 501.4021, L100.0100, L500.2500 ####[facility] [address] [place], [address] Eosinophils/100 WBC (Bld) 1.7 % Normal 0-5 [facility] Comment on above: Performed By: #### L 501.4021, L100.0100, L500.2500 ####[facility] [address] [place], [address] Erythrocyte distribution width (RBC) [Ratio] 13.2 % Normal 11.6-14.6 [facility] Comment on above: Performed By: #### L 501.4021, L100.0100, L500.2500 ####[facility] [address] [place], [address] Hematocrit (Bld) [Volume fraction] 35.2 % Low 37-47 [facility] Comment on above: Performed By: #### L 501.4021, L100.0100, L500.2500 ####[facility] [address] [place], [address] Hemoglobin (Bld) [Mass/Vol] 11.8 g/dL Low 12.0-15.0 [facility] Comment on above: Performed By: #### L 501.4021, L100.0100, L500.2500 ####[facility] [address] [place], [address] IG% 0.200 Normal 0.0-0.9 [facility] Comment on above: Result Comment: IG% - Immature Granulocytes (promyelocytes, myelocytes andmetamyelocytes) > 1% indicates that a LEFT SHIFT is Present. Performed By: #### L 501.4021, L100.0100, L500.2500 ####[facility] [address] [place], [address] Lymphocytes/100 WBC (Bld) 38.7 % Normal 19-41 [facility] Comment on above: Performed By: #### L 501.4021, L100.0100, L500.2500 ####[facility] [address] [place], [address] MCH (RBC) [Entitic mass] 32.3 pg High 27.0-32.0 [facility] Comment on above: Performed By: #### L 501.4021, L100.0100, L500.2500 ####[facility] [address] [place], [address] MCHC (RBC) [Mass/Vol] 33.5 g/dL Normal 32-[address] [facility] Comment on above: Performed By: #### L 501.4021, L100.0100, L500.2500 ####[facility] [address] [place], [address] MCV (RBC) [Entitic vol] 96.4 fL Normal 81-99 [facility] Comment on above: Performed By: #### L 501.4021, L100.0100, L500.2500 ####[facility] [address] [place], [address] Monocytes/100 WBC (Bld) 8.1 % Normal 0-10 [facility] Comment on above: Performed By: #### L 501.4021, L100.0100, L500.2500 ####[facility] [address], [address] Neutrophils/100 WBC (Bld) 51.1 % Normal 47-70 [facility] Comment on above: Performed By: #### L 501.4021, L100.0100, L500.2500 ####[facility] [address], [address] Nucleated RBC (Bld) [#/Vol] 0 10*3/uL Normal 0-5 [facility] Comment on above: Performed By: #### L 501.4021, L100.0100, L500.2500 ####[facility] [address] [place], [address] Platelet mean volume (Bld) [Entitic vol] 10.8 fL Normal 6.2-12.0 [facility] Comment on above: Performed By: #### L 501.4021, L100.0100, L500.2500 ####[facility] [address] [place], [address] Platelets (Bld) [#/Vol] 208 10*3/uL Normal 150-450 [facility] Comment on above: Performed By: #### L 501.4021, L100.0100, L500.2500 ####[facility] [address] [place], [address] RBC (Bld) [#/Vol] 3.65 10*6/uL Low 4.2-5.4 [facility] Comment on above: Performed By: #### L 501.4021, L100.0100, L500.2500 ####[facility] [address] [place], [address] RDW SD 47.2 fl High 35.1-43.9 [facility] Comment on above: Performed By: #### L 501.4021, L100.0100, L500.2500 ####[facility] [address] [place], [address] WBC (Bld) [#/Vol] 4.7 10*3/uL Normal 4.4-11.0 [facility] Comment on above: Performed By: #### L 501.4021, L100.0100, L500.2500 ####[facility] [address] [facility] [place], [address] Calcium [Mass/Vol]Ordered By : Ulisses Chan on 07-14-2024 Serum or plasma calcium measurement (mass/volume) 9.4 mg/dL 7.6-11.0 [facility] Carbon dioxide, total [Moles /volume] in Central venous bloodOrdered By: Ulisses Chan on 07-14-2024 CO2 [Moles/Vol] 23.7 mmol/L 21.0-32.0 [facility] Carbon dioxide, total [Moles/volume] in Central venous blood 23.7 mmol/L 21.0-32.0 [facility] Chest without Contraston Chest without Contrast Normal [facility] Chloride assayOrdered By: Margarito Chan on 07-14-2024 Chloride [Moles/Vol] 106 mmol/L 98-108 [facility] Chloride assay 106 mmol/L 98-108 [facility] Creatinine [Mass/Vol]Ordered By: Ulisses Chan on 07-14-2024 Serum creatinine measurement (mass/volume) 0.94 mg/dL 0.70-1.20 [facility] Emergency Department Summary on 07-14-2024 Emergency Department Summary Normal [facility] Eosinophil percentageOrdered By: Ulisses Chan on 07-14-2024 Eosinophils/100 WBC (Bld) 1.7 % 0-5 [facility] Eosinophil percentage 1.7 % 0-[address] [facility] Erythrocyte distribution wid th (RBC) [Entitic vol]Ordered By: Ulisses Chan on 07-14-2024 Erythrocyte distribution width standard deviation 47.2 fl High 35.1-43.9 [facility] Erythrocyte distribution wid th (RBC) [Ratio]Ordered By: Ulisses Chan on 07-14-2024 Erythrocyte distribution width ratio 13.2 % 11.6-14.6 [facility] Erythrocyte distribution wid th ratioOrdered By: Ulisses Chan on 07-14-2024 Erythrocyte distribution width (RBC) [Ratio] 13.2 % 11.6-14.6 [facility] Erythrocyte distribution wid th standard deviationOrdered By: Ulisses Chan on 07-14-2024 Erythrocyte distribution width (RBC) [Ratio] 47.2 fl High 35.1-43.9 [facility] Estimation of creatinine carl aranceOrdered By: Ulisses Chan on 07-14-2024 Estimation of creatinine clearance 52.46 ml/min 50-250 [facility] GFR/1.73 sq M.predicted leland g non-blacks MDRD (S/P/Bld) [Vol rate/Area]Ordered By: Ulisses Chan on 07-14-2024 Glomerular filtration rate (GFR) estimation/1.73 sq m using serum, plasma, or whole b 65 >60 [facility] Glomerular filtration rate ( GFR) estimation/1.73 sq m using serum, plasma, or whole bOrdered By: Ulisses Chan on 07-14-2024 GFR/1.73 sq M.predicted among non-blacks MDRD (S/P/Bld) [Vol rate/Area] 65 mL/min/{1.73_m2} >60 [facility] Glucose [Mass/Vol]Ordered By : Ulisses Chan on 07-14-2024 Serum glucose measurement (mass/volume) 141 mg/dL High 70-99 [facility] Hematocrit Auto (Bld) [Volum e fraction]Ordered By: Ulisses Chan on 07-14-2024 Hematocrit (Bld) [Volume fraction] 35.2 % Low 37-47 [facility] Automated blood hematocrit (percentage) 35.2 % Low 37-47 [facility] Hemoglobin measurementOrdere d By: Ulisses Chan on 07-14-2024 Hemoglobin (Bld) [Mass/Vol] 11.8 g/dL Low 12.0-15.0 [facility] Hemoglobin measurement 11.8 g/dL Low 12.0-15.0 [facility] Immature granulocytes/100 WB C Auto (Bld)Ordered By: Ulisses Chan on 07-14-2024 Immature granulocytes/100 WBC (Bld) 0.200 % 0.0-0.9 [facility] Automated immature granulocyte percentage 0.200 % 0.0-0.9 [facility] L499.0042on 07-14-2024 Trop T High Sen 11 ng/L Normal <=14 [facility] Comment on above: Performed By: #### L 499.0042 ####[facility] [address] [place], [address] L499.0043on 07-14-2024 Trop T High Sen Normal <=14 [facility] Comment on above: Result Comment: NO S PECIMEN COLLECTED. PATIENT DEPARTED ED Performed By: #### L 499.0043 ####[facility] [address] [place], [address] L501.4021on 07-14-2024 Trop T High Sen 9 ng/L Normal <=14 [facility] Comment on above: Performed By: #### L 501.4021, L100.0100, L500.2500 ####[facility] [address] [place], [address] Lymphocytes Auto (Unsp spec) [#/Vol]Ordered By: Ulsises Chan on 07-14-2024 Absolute lymphocyte count 1.82 X10^3/uL 0.83-4.51 [facility] Lymphocytes/100 WBC Auto (Un sp spec)Ordered By: Ulisses Chan on 07-14-2024 Automated lymphocyte count as percentage of total leukocytes 38.7 % 19-41 [facility] MCV (RBC) [Entitic vol]Order ed By: Ulisses Chan on 07-14-2024 MCV (mean corpuscular volume) determination 96.4 fL 81-99 [facility] MCV (mean corpuscular volume ) determinationOrdered By: Ulisses Chan on 07-14-2024 MCV (RBC) [Entitic vol] 96.4 fL 81-99 [facility] Mean corpuscular hemoglobin (MCH) determinationOrdered By: Ulisses Chan on 07-14-2024 MCH (RBC) [Entitic mass] 32.3 pg High 27.0-32.0 [facility] Mean corpuscular hemoglobin (MCH) determination 32.3 pg High 27.0-32.0 [facility] Mean corpuscular hemoglobin concentration (MCHC) determinationOrdered By: Ulisses Chan on 07-14-2024 Mean corpuscular hemoglobin concentration (MCHC) determination 33.5 g/dL 32-36 [facility] Mean platelet volume determi nationOrdered By: Ulisses Chan on 07-14-2024 Mean platelet volume determination 10.8 fl 6.2-12.0 [facility] Monocyte percentageOrdered B y: Ulisses Chan on 07-14-2024 Monocytes/100 WBC (Bld) 8.1 % 0-10 [facility] Monocyte percentage 8.1 % 0-10 [facility] Neutrophil percentageOrdered By: Ulisses Chan on 07-14-2024 Neutrophils/100 WBC (Bld) 51.1 % 47-70 [facility] Neutrophil percentage 51.1 % 47-[address] [facility] No Panel InformationOrdered By: Ulisses Chan on 07-14-2024 9 ng/L <14 [facility] Nucleated red blood cell per centageOrdered By: Ulisses Chan on 07-14-2024 Nucleated red blood cell percentage 0 % 0-5 [facility] Platelet countOrdered By: Margarito Chan on 07-14-2024 Platelets (Bld) [#/Vol] 208 10*3/uL 150-450 [facility] Platelet count 208 K/mm3 150-450 [facility] Potassium (Unsp spec) [Mass/ Vol]Ordered By: Ulisses Chan on 07-14-2024 Potassium measurement (mass/volume) 3.9 mmol/L 3.3-5.1 [facility] Potassium measurement (mass/ volume)Ordered By: Ulisses Chan on 07-14-2024 Potassium (Unsp spec) [Mass/Vol] 3.9 mmol/L 3.3-5.1 [facility] RBC Auto (Bld) [#/Vol]Ordere d By: Ulisses Chan on 07-14-2024 RBC (Bld) [#/Vol] 3.65 10*6/uL Low 4.2-5.4 [facility] Automated blood erythrocyte count 3.65 M/mm3 Low 4.2-5.4 [facility] Serum creatinine measurement (mass/volume)Ordered By: Ulisses Chan on 07-14-2024 Creatinine [Mass/Vol] 0.94 mg/dL 0.70-1.[address] [facility] Serum glucose measurement (m ass/volume)Ordered By: Ulisses Chan on 07-14-2024 Glucose [Mass/Vol] 141 mg/dL High 70-99 [facility] Serum or plasma calcium loretta urement (mass/volume)Ordered By: Ulisses Chan on 07-14-2024 Calcium [Mass/Vol] 9.4 mg/dL 7.6-11.0 [facility] Serum or plasma urea nitroge n measurement (mass/volume)Ordered By: Ulisses Chan on 07-14-2024 Urea nitrogen [Mass/Vol] 20 mg/dL High 08-20 [facility] Sodium levelOrdered By: Ulisses Chan on 07-14-2024 Sodium [Moles/Vol] 142 mmol/L 133-145 [facility] Sodium level 142 mmol/L 133-145 [facility] Troponin T.cardiac High sens itivity method [Mass/Vol]Ordered By: Ulisses Chan on 07-14-2024 Troponin T.cardiac [Mass/volume] in Serum or Plasma by High sensitivity method 11 ng/L <14 [facility] Troponin T.cardiac [Mass/vol ume] in Serum or Plasma by High sensitivity methodOrdered By: Ulisses Chan on 07-14-2024 Troponin T.cardiac High sensitivity method [Mass/Vol] 11 ng/L <14 [facility] Urea nitrogen [Mass/Vol]Orde red By: Ulisses Chan on 07-14-2024 Serum or plasma urea nitrogen measurement (mass/volume) 20 mg/dL High 08-20 [facility] White blood cell (WBC) count Ordered By: Ulisses Chan on 07-14-2024 WBC (Bld) [#/Vol] 4.7 10*3/uL 4.4-11.0 [facility] White blood cell (WBC) count 4.7 K/mm3 4.4-11.0 [facility] Office Visit Reporton 2024 Office Visit Report Normal [facility] ALP [Catalytic activity/Vol] Ordered By: Yee Rowland on 06-22-2024 Serum or plasma alkaline phosphatase measurement 60 U/L 45-117 [facility] ALT [Catalytic activity/Vol] Ordered By: Yee Rowland on 06-22-2024 Serum or plasma alanine aminotransferase (ALT) measurement 22 U/L 13-56 [facility] Absolute lymphocyte countOrd ered By: Yeejazlyn Rowland on 06-22-2024 Lymphocytes Auto (Unsp spec) [#/Vol] 1.44 10*3/uL 0.83-4.51 [facility] Absolute neutrophil countOrd ered By: Yee Rowland on 06-22-2024 Absolute neutrophil count 2.0 X10^3/uL 2.0-7.7 [facility] Albumin [Mass/Vol]Ordered By : Yee Rowland on 06-22-2024 Serum or plasma albumin measurement (mass/volume) 3.1 g/dL Low 3.2-5.0 [facility] Albumin to globulin ratioOrd ered By: Yeejazlyn Rowland on 06-22-2024 Albumin to globulin ratio 0.9 RATIO 0.9-2.4 [facility] Automated lymphocyte count a s percentage of total leukocytesOrdered By: Yee Rowland on 06-22-2024 Lymphocytes/100 WBC Auto (Unsp spec) 37.7 % 19-41 [facility] Basophil percentageOrdered B y: Yee Rowland on 06-22-2024 Basophils/100 WBC (Bld) 0.5 % 0-1 [facility] Basophil percentage 0.5 % 0-1 [facility] Bilirubin, totalOrdered By: Yee Rowland on 06-22-2024 Bilirubin [Mass/Vol] 0.40 mg/dL 0.20-1.00 [facility] Bilirubin, total 0.40 mg/dL 0.20-1.00 [facility] Blood urea nitrogen (BUN)/cr eatinine ratioOrdered By: Yee Rowland on 06-22-2024 Blood urea nitrogen (BUN)/creatinine ratio 26.2 RATIO High 10-20 [facility] CBC W/Diff, Automatedon 06-04 Absolute Lymph 1.44 X10 3/uL Normal 0.83-4.51 [facility] Comment on above: Performed By: #### L 500.4050, L100.0100 ####[facility] [address], [address] Absolute Neut 2.0 X10 3/uL Normal 2.0-7.7 [facility] Comment on above: Performed By: #### L 500.4050, L100.0100 ####[facility] [address] [place], [address] Basophils/100 WBC (Bld) 0.5 % Normal 0-1 [facility] Comment on above: Performed By: #### L 500.4050, L100.0100 ####[facility] [address] [place], [address] Eosinophils/100 WBC (Bld) 2.6 % Normal 0-5 [facility] Comment on above: Performed By: #### L 500.4050, L100.0100 ####[facility] [address] [place], [address] Erythrocyte distribution width (RBC) [Ratio] 13.4 % Normal 11.6-14.6 [facility] Comment on above: Performed By: #### L 500.4050, L100.0100 ####[facility] [address] [place], [address] Hematocrit (Bld) [Volume fraction] 34.8 % Low 37-47 [facility] Comment on above: Performed By: #### L 500.4050, L100.0100 ####[facility] [address] [place], [address] Hemoglobin (Bld) [Mass/Vol] 11.5 g/dL Low 12.0-15.0 [facility] Comment on above: Performed By: #### L 500.4050, L100.0100 ####[facility] [address] [place], [address] IG% 0.300 Normal 0.0-0.9 [facility] Comment on above: Result Comment: IG% - Immature Granulocytes (promyelocytes, myelocytes andmetamyelocytes) > 1% indicates that a LEFT SHIFT is Present. Performed By: #### L 500.4050, L100.0100 ####[facility] [address] [place], [address] Lymphocytes/100 WBC (Bld) 37.7 % Normal 19-41 [facility] Comment on above: Performed By: #### L 500.4050, L100.0100 ####[facility] [address] [place], [address] MCH (RBC) [Entitic mass] 32.3 pg High 27.0-32.0 [facility] Comment on above: Performed By: #### L 500.4050, L100.0100 ####[facility] [address] [place], [address] MCHC (RBC) [Mass/Vol] 33.0 g/dL Normal 32-[address] [facility] Comment on above: Performed By: #### L 500.4050, L100.0100 ####[facility] [address] [place], [address] MCV (RBC) [Entitic vol] 97.8 fL Normal 81-99 [facility] Comment on above: Performed By: #### L 500.4050, L100.0100 ####[facility] [address] [place], [address] Monocytes/100 WBC (Bld) 7.1 % Normal 0-10 [facility] Comment on above: Performed By: #### L 500.4050, L100.0100 ####[facility] [address] [place], [address] Neutrophils/100 WBC (Bld) 51.8 % Normal 47-70 [facility] Comment on above: Performed By: #### L 500.4050, L100.0100 ####[facility] [address] [place], [address] Nucleated RBC (Bld) [#/Vol] 0 10*3/uL Normal 0-5 [facility] Comment on above: Performed By: #### L 500.4050, L100.0100 ####[facility] [address] [place], [address] Platelet mean volume (Bld) [Entitic vol] 11.1 fL Normal 6.2-12.0 [facility] Comment on above: Performed By: #### L 500.4050, L100.0100 ####[facility] [address] [place], [address] Platelets (Bld) [#/Vol] 192 10*3/uL Normal 150-450 [facility] Comment on above: Performed By: #### L 500.4050, L100.0100 ####[facility] [address] [place], [address] RBC (Bld) [#/Vol] 3.56 10*6/uL Low 4.2-5.4 [facility] Comment on above: Performed By: #### L 500.4050, L100.0100 ####[facility] [address] [place], [address] RDW SD 47.8 fl High 35.1-43.9 [facility] Comment on above: Performed By: #### L 500.4050, L100.0100 ####[facility] [address] [place], [address] WBC (Bld) [#/Vol] 3.8 10*3/uL Low 4.4-11.0 [facility] Comment on above: Performed By: #### L 500.4050, L100.0100 ####[facility] [address] [place], [address] Calcium [Mass/Vol]Ordered By : Yee Rowland on 06-22-2024 Serum or plasma calcium measurement (mass/volume) 8.7 mg/dL 8.5-10.1 [facility] Carbon dioxide measurementOr dered By: Yee Rowland on 06-22-2024 CO2 [Moles/Vol] 25.0 mmol/L 21.0-32.0 [facility] Carbon dioxide measurement 25.0 mmol/L 21.0-32.0 [facility] Chloride measurementOrdered By: Yee Rowland on 06-22-2024 Chloride [Moles/Vol] 110 mmol/L High 98-107 [facility] Chloride measurement 110 mmol/L High 98-107 [facility] Comprehensive Metabolic Prof ilon 06-22-2024 Albumin [Mass/Vol] 3.1 g/dL Low 3.2-5.0 [facility] Comment on above: Performed By: #### L 500.4050, L100.0100 ####[facility] [address] [place], [address] Albumin/Globulin [Mass ratio] 0.9 {ratio} Normal 0.9-2.4 [facility] Comment on above: Performed By: #### L 500.4050, L100.0100 ####[facility] [address] [place], [address] ALK P 60 U/L Normal 45-117 [facility] Comment on above: Performed By: #### L 500.4050, L100.0100 ####[facility] [address] [place], [address] ALT [Catalytic activity/Vol] 22 U/L Normal 13-56 [facility] Comment on above: Performed By: #### L 500.4050, L100.0100 ####[facility] [address] [place], [address] AST [Catalytic activity/Vol] 18 U/L Normal 15-37 [facility] Comment on above: Performed By: #### L 500.4050, L100.0100 ####[facility] [address] [place], [address] Bilirubin [Mass/Vol] 0.40 mg/dL Normal 0.20-1.00 [facility] Comment on above: Result Comment: For patients on eltrombopag therapy, use of Dimension Stephenson TBIL is not recommended. Performed By: #### L 500.4050, L100.0100 ####[facility] [address] [place], [address] BUN/CRE 26.2 RATIO High 10-20 [facility] Comment on above: Performed By: #### L 500.4050, L100.0100 ####[facility] [address] [place], [address] CA,Total 8.7 mg/dL Normal 8.5-10.1 [facility] Comment on above: Performed By: #### L 500.4050, L100.0100 ####[facility] [address] [place], [address] Chloride [Moles/Vol] 110 mmol/L High 98-107 [facility] Comment on above: Performed By: #### L 500.4050, L100.0100 ####[facility] [address] [place], [address] CO2 [Moles/Vol] 25.0 mmol/L Normal 21.0-32.0 [facility] Comment on above: Performed By: #### L 500.4050, L100.0100 ####[facility] [address] [place], [address] Creatinine [Mass/Vol] 0.88 mg/dL Normal 0.55-1.[address] [facility] Comment on above: Result Comment: The validity of the calculated GFR GFRAA in patients over70 years has not been determined. Clinical correlation isessential. Performed By: #### L 500.4050, L100.0100 ####[facility] [address] [place], [address] EST GFR - AA 82 mL/min Normal >60 [facility] Comment on above: Result Comment: Afri can Colombian GFR Calc Performed By: #### L 500.4050, L100.0100 ####[facility] [address] [place], [address] GAP 6 Normal 5-15 [facility] Comment on above: Performed By: #### L 500.4050, L100.0100 ####[facility] [address] [place], [address] GFR/1.73 sq M.predicted among non-blacks MDRD (S/P/Bld) [Vol rate/Area] 68 mL/min/{1.73_m2} Normal >60 [facility] Comment on above: Result Comment: Non- GFR Calc Performed By: #### L 500.4050, L100.0100 ####[facility] [address] [place], [address] Globulin (S) [Mass/Vol] 3.5 g/dL Normal 2.2-4.2 [facility] Comment on above: Performed By: #### L 500.4050, L100.0100 ####[facility] [address] [place], [address] Glucose [Mass/Vol] 103 mg/dL Normal 74-106 [facility] Comment on above: Result Comment: Fast ing Glucose result from 100 to 125 mg/dLsuggests IMPAIRED HOMEOSTASIS per A.D.A. criteria. Performed By: #### L 500.4050, L100.0100 ####[facility] [address] [place], [address] Potassium [Moles/Vol] 4.1 mmol/L Normal 3.5-5.[address] [facility] Comment on above: Performed By: #### L 500.4050, L100.0100 ####[facility] [address] [place], [address] Sodium [Moles/Vol] 141 mmol/L Normal 136-145 [facility] Comment on above: Performed By: #### L 500.4050, L100.0100 ####[facility] [address] [place], [address] T PROT 6.6 g/dL Normal 6.4-8.2 [facility] Comment on above: Performed By: #### L 500.4050, L100.0100 ####[facility] [address] [place], [address] Urea nitrogen [Mass/Vol] 23 mg/dL High 7-18 [facility] Comment on above: Performed By: #### L 500.4050, L100.0100 ####[facility] [address] [place], [address] Creatinine [Mass/Vol]Ordered By: Yee Rowland on 06-22-2024 Serum or plasma creatinine measurement (mass/volume) 0.88 mg/dL 0.55-1.02 [facility] Eosinophil percentageOrdered By: Yee Rowland on 06-22-2024 Eosinophils/100 WBC (Bld) 2.6 % 0-5 [facility] Eosinophil percentage 2.6 % 0-[address] [facility] Erythrocyte distribution wid th (RBC) [Entitic vol]Ordered By: Yee Rowland on 06-22-2024 Erythrocyte distribution width standard deviation 47.8 fl High 35.1-43.9 [facility] Erythrocyte distribution wid th (RBC) [Ratio]Ordered By: Yee Rowland on 06-22-2024 Erythrocyte distribution width ratio 13.4 % 11.6-14.6 [facility] Erythrocyte distribution wid th ratioOrdered By: Yee Rowland on 06-22-2024 Erythrocyte distribution width (RBC) [Ratio] 13.4 % 11.6-14.6 [facility] Erythrocyte distribution wid th standard deviationOrdered By: Yee Rowland on 06-22-2024 Erythrocyte distribution width (RBC) [Ratio] 47.8 fl High 35.1-43.9 [facility] Estimated glomerular filtrat ion rate (GFR) AmericanOrdered By: Yee Rowland on 06-22-2024 Estimated glomerular filtration rate (GFR) 82 mL/min >60 [facility] Glomerular filtration rate ( GFR) estimationOrdered By: Yee Rowland on 06-22-2024 GFR/1.73 sq M.predicted among non-blacks MDRD (S/P/Bld) [Vol rate/Area] 68 mL/min/{1.73_m2} >60 [facility] Glomerular filtration rate (GFR) estimation 68 mL/min >60 [facility] Glucose measurementOrdered B y: Yee Rowland on 06-22-2024 Glucose [Mass/Vol] 103 mg/dL 74-106 [facility] Glucose measurement 103 mg/dL 74-106 [facility] Hematocrit Auto (Bld) [Volum e fraction]Ordered By: Yee Rowland on 06-22-2024 Hematocrit (Bld) [Volume fraction] 34.8 % Low 37-47 [facility] Automated blood hematocrit (percentage) 34.8 % Low 37-47 [facility] Hemoglobin measurementOrdere d By: Yee Rowland on 06-22-2024 Hemoglobin (Bld) [Mass/Vol] 11.5 g/dL Low 12.0-15.0 [facility] Hemoglobin measurement 11.5 g/dL Low 12.0-15.0 [facility] Immature granulocytes/100 WB C Auto (Bld)Ordered By: Yee Rowland on 06-22-2024 Immature granulocytes/100 WBC (Bld) 0.300 % 0.0-0.9 [facility] Automated immature granulocyte percentage 0.300 % 0.0-0.9 [facility] Lymphocytes Auto (Unsp spec) [#/Vol]Ordered By: Yee Rowland on 06-22-2024 Absolute lymphocyte count 1.44 X10^3/uL 0.83-4.51 [facility] Lymphocytes/100 WBC Auto (Un sp spec)Ordered By: Yee Rowland on 06-22-2024 Automated lymphocyte count as percentage of total leukocytes 37.7 % 19-41 [facility] MCV (RBC) [Entitic vol]Order ed By: Yee Rowland on 06-22-2024 MCV (mean corpuscular volume) determination 97.8 fL 81-99 [facility] MCV (mean corpuscular volume ) determinationOrdered By: Yee Rowland on 06-22-2024 MCV (RBC) [Entitic vol] 97.8 fL 81-99 [facility] Mean corpuscular hemoglobin (MCH) determinationOrdered By: Yee Rowland on 06-22-2024 MCH (RBC) [Entitic mass] 32.3 pg High 27.0-32.0 [facility] Mean corpuscular hemoglobin (MCH) determination 32.3 pg High 27.0-32.0 [facility] Mean corpuscular hemoglobin concentration (MCHC) determinationOrdered By: Yee Rowland on 06-22-2024 Mean corpuscular hemoglobin concentration (MCHC) determination 33.0 g/dL 32-36 [facility] Mean platelet volume determi nationOrdered By: Yee Rowland on 06-22-2024 Mean platelet volume determination 11.1 fl 6.2-12.0 [facility] Monocyte percentageOrdered B y: Yee Rowland on 06-22-2024 Monocytes/100 WBC (Bld) 7.1 % 0-10 [facility] Monocyte percentage 7.1 % 0-10 [facility] Neutrophil percentageOrdered By: Yee Rowland on 06-22-2024 Neutrophils/100 WBC (Bld) 51.8 % 47-70 [facility] Neutrophil percentage 51.8 % 47-[address] [facility] No Panel InformationOrdered By: Yee Rowland on 06-22-2024 18 U/L 15-37 [facility] Nucleated red blood cell per centageOrdered By: Yee Rowland on 06-22-2024 Nucleated red blood cell percentage 0 % 0-5 [facility] Platelet countOrdered By: Rene Rowland on 06-22-2024 Platelets (Bld) [#/Vol] 192 10*3/uL 150-450 [facility] Platelet count 192 K/mm3 150-450 [facility] Potassium measurementOrdered By: Yee Rowland on 06-22-2024 Potassium [Moles/Vol] 4.1 mmol/L 3.5-5.[address] [facility] Potassium measurement 4.1 mmol/L 3.5-5.[address] [facility] RBC Auto (Bld) [#/Vol]Ordere d By: Yee Rowland on 06-22-2024 RBC (Bld) [#/Vol] 3.56 10*6/uL Low 4.2-5.4 [facility] Automated blood erythrocyte count 3.56 M/mm3 Low 4.2-5.4 [facility] Serum anion gap measurementO rdered By: Yee Rowland on 06-22-2024 Serum anion gap measurement 6 5-15 [facility] Serum globulin measurementOr dered By: Yee Rowland on 06-22-2024 Globulin (S) [Mass/Vol] 3.5 g/dL 2.2-4.2 [facility] Serum globulin measurement 3.5 g/dL 2.2-4.2 [facility] Serum or plasma alanine carvalho otransferase (ALT) measurementOrdered By: Yee Rowland on 06-22-2024 ALT [Catalytic activity/Vol] 22 U/L 13-56 [facility] Serum or plasma albumin loretta urement (mass/volume)Ordered By: Yee Rowland on 06-22-2024 Albumin [Mass/Vol] 3.1 g/dL Low 3.2-5.0 [facility] Serum or plasma alkaline dima sphatase measurementOrdered By: Yee Rowland on 06-22-2024 ALP [Catalytic activity/Vol] 60 U/L 45-117 [facility] Serum or plasma calcium loretta urement (mass/volume)Ordered By: Yee Rowland on 06-22-2024 Calcium [Mass/Vol] 8.7 mg/dL 8.5-10.1 [facility] Serum or plasma creatinine m easurement (mass/volume)Ordered By: Yee Rowland on 06-22-2024 Creatinine [Mass/Vol] 0.88 mg/dL 0.55-1.[address] [facility] Serum or plasma urea nitroge n measurement (mass/volume)Ordered By: Yee Rowland on 06-22-2024 Urea nitrogen [Mass/Vol] 23 mg/dL High 11-18 [facility] Sodium levelOrdered By: Karl Rowland on 06-22-2024 Sodium [Moles/Vol] 141 mmol/L 136-145 [facility] Sodium level 141 mmol/L 136-145 [facility] Total proteinOrdered By: Praasd Rowland on 06-22-2024 Protein [Mass/Vol] 6.6 g/dL 6.4-8.2 [facility] Total protein 6.6 g/dL 6.4-8.2 [facility] Urea nitrogen [Mass/Vol]Orde red By: Yee Rowland on 06-22-2024 Serum or plasma urea nitrogen measurement (mass/volume) 23 mg/dL High 11-18 [facility] White blood cell (WBC) count Ordered By: Yee Rowland on 06-22-2024 WBC (Bld) [#/Vol] 3.8 10*3/uL Low 4.4-11.0 [facility] White blood cell (WBC) count 3.8 K/mm3 Low 4.4-11.0 [facility] SCRN MAMM (CAD)W/PAUL BILATo n 06-07-2024 SCRN MAMM (CAD)W/PAUL BILAT Normal [facility] Internal Medicine Office Vis iton 05-20-2024 Internal Medicine Office Visit Normal [facility] No Panel Informationon 05-20 6.5 % High 4.2-6.3 [facility] ALP [Catalytic activity/Vol] Ordered By: Pepe Ruiz on 05-16-2024 Serum or plasma alkaline phosphatase measurement 66 U/L 45-117 [facility] ALT [Catalytic activity/Vol] Ordered By: Pepe Ruiz on 05-16-2024 Serum or plasma alanine aminotransferase (ALT) measurement 22 U/L 13-56 [facility] Albumin [Mass/Vol]Ordered By : Pepe Ruiz on 05-16-2024 Serum or plasma albumin measurement (mass/volume) 3.1 g/dL Low 3.2-5.0 [facility] Albumin to globulin ratioOrd ered By: Pepe Ruiz on 05-16-2024 Albumin to globulin ratio 0.9 RATIO 0.9-2.4 [facility] Ammoniaon 05-16-2024 Ammonia (P) [Moles/Vol] 39.0 umol/L High 11-32 [facility] Comment on above: Performed By: #### L 500.4050, L501.8100, L100.0500, L503.5510 ####[facility] [address] [place], [address] Bilirubin, totalOrdered By: Pepe Ruiz on 05-16-2024 Bilirubin, total 0.30 mg/dL 0.20-1.00 [facility] Blood urea nitrogen (BUN)/cr eatinine ratioOrdered By: Pepe uRiz on 05-16-2024 Blood urea nitrogen (BUN)/creatinine ratio 23.7 RATIO High 10-20 [facility] CBC-Complete Blood Cnt No Di ffon 05-16-2024 Erythrocyte distribution width (RBC) [Ratio] 13.5 % Normal 11.6-14.6 [facility] Comment on above: Performed By: #### L 500.4050, L501.8100, L100.0500, L503.5510 ####[facility] [address] [place], [address] Hematocrit (Bld) [Volume fraction] 35.5 % Low 37-47 [facility] Comment on above: Performed By: #### L 500.4050, L501.8100, L100.0500, [id number] ####[facility] [address] [place], [address] Hemoglobin (Bld) [Mass/Vol] 11.4 g/dL Low 12.0-15.0 [facility] Comment on above: Performed By: #### L 500.4050, L501.8100, L100.0500, L503.5510 ####[facility] [address] [place], [address] MCH (RBC) [Entitic mass] 31.6 pg Normal 27.0-32.0 [facility] Comment on above: Performed By: #### L 500.4050, L501.8100, L100.0500, L503.5510 ####[facility] [address] [place], [address] MCHC (RBC) [Mass/Vol] 32.1 g/dL Normal 32-[address] [facility] Comment on above: Performed By: #### L 500.4050, L501.8100, L100.0500, L503.5510 ####[facility] [address] [place], [address] MCV (RBC) [Entitic vol] 98.3 fL Normal 81-99 [facility] Comment on above: Performed By: #### L 500.4050, L501.8100, L100.0500, L503.5510 ####[facility] [address] [place], [address] Platelet mean volume (Bld) [Entitic vol] 11.6 fL Normal 6.2-12.0 [facility] Comment on above: Performed By: #### L 500.4050, L501.8100, L100.0500, L503.5510 ####[facility] [address] [place], [address] Platelets (Bld) [#/Vol] 173 10*3/uL Normal 150-450 [facility] Comment on above: Performed By: #### L 500.4050, L501.8100, L100.0500, L503.5510 ####[facility] [address] [place], [address] RBC (Bld) [#/Vol] 3.61 10*6/uL Low 4.2-5.4 [facility] Comment on above: Performed By: #### L 500.4050, L501.8100, L100.0500, L503.5510 ####[facility] [address] [place], [address] RDW SD 49.5 fl High 35.1-43.9 [facility] Comment on above: Performed By: #### L 500.4050, L501.8100, L100.0500, L503.5510 ####[facility] [address] [place], [address] WBC (Bld) [#/Vol] 3.5 10*3/uL Low 4.4-11.0 [facility] Comment on above: Performed By: #### L 500.4050, L501.8100, L100.0500, L503.5510 ####[facility] [address] [place], [address] Calcium [Mass/Vol]Ordered By : Pepe Ruiz on 05-16-2024 Serum or plasma calcium measurement (mass/volume) 8.7 mg/dL 8.5-10.1 [facility] Carbon dioxide measurementOr dered By: Pepe Ruiz on 05-16-2024 Carbon dioxide measurement 26.0 mmol/L 21.0-32.0 [facility] Chloride measurementOrdered By: Pepe Ruiz on 05-16-2024 Chloride measurement 111 mmol/L High 98-107 [facility] Comprehensive Metabolic Prof ilon 05-16-2024 Albumin [Mass/Vol] 3.1 g/dL Low 3.2-5.0 [facility] Comment on above: Performed By: #### L 500.4050, L501.8100, L100.0500, L503.5510 ####[facility] [address] [place], [address] Albumin/Globulin [Mass ratio] 0.9 {ratio} Normal 0.9-2.4 [facility] Comment on above: Performed By: #### L 500.4050, L501.8100, L100.0500, L503.5510 ####[facility] [address] [place], [address] ALK P 66 U/L Normal 45-117 [facility] Comment on above: Performed By: #### L 500.4050, L501.8100, L100.0500, L503.5510 ####[facility] [address] [place], [address] ALT [Catalytic activity/Vol] 22 U/L Normal 13-56 [facility] Comment on above: Performed By: #### L 500.4050, L501.8100, L100.0500, L503.5510 ####[facility] [address] [place], [address] AST [Catalytic activity/Vol] 15 U/L Normal 15-37 [facility] Comment on above: Performed By: #### L 500.4050, L501.8100, L100.0500, L503.5510 ####[facility] [address] [place], [address] Bilirubin [Mass/Vol] 0.30 mg/dL Normal 0.20-1.00 [facility] Comment on above: Result Comment: For patients on eltrombopag therapy, use of Dimension Stephenson TBIL is not recommended. Performed By: #### L 500.4050, L501.8100, L100.0500, L503.5510 ####[facility] [address] [place], [address] BUN/CRE 23.7 RATIO High 10-20 [facility] Comment on above: Performed By: #### L 500.4050, L501.8100, L100.0500, L503.5510 ####[facility] [address] [place], [address] CA,Total 8.7 mg/dL Normal 8.5-10.1 [facility] Comment on above: Performed By: #### L 500.4050, L501.8100, L100.0500, L503.5510 ####[facility] [address] [place], [address] Chloride [Moles/Vol] 111 mmol/L High 98-107 [facility] Comment on above: Performed By: #### L 500.4050, L501.8100, L100.0500, L503.5510 ####[facility] [address] [place], [address] CO2 [Moles/Vol] 26.0 mmol/L Normal 21.0-32.0 [facility] Comment on above: Performed By: #### L 500.4050, L501.8100, L100.0500, L503.5510 ####[facility] [address] [place], [address] Creatinine [Mass/Vol] 0.93 mg/dL Normal 0.55-1.[address] [facility] Comment on above: Result Comment: The validity of the calculated GFR GFRAA in patients over70 years has not been determined. Clinical correlation isessential. Performed By: #### L 500.4050, L501.8100, L100.0500, L503.5510 ####[facility] [address] [place], [address] EST GFR - AA 76 mL/min Normal >60 [facility] Comment on above: Result Comment: Afri can Colombian GFR Calc Performed By: #### L 500.4050, L501.8100, L100.0500, L503.5510 ####[facility] [address] [place], [address] GAP 3 Low 5-15 [facility] Comment on above: Performed By: #### L 500.4050, L501.8100, L100.0500, L503.5510 ####[facility] [address] [place], [address] GFR/1.73 sq M.predicted among non-blacks MDRD (S/P/Bld) [Vol rate/Area] 63 mL/min/{1.73_m2} Normal >60 [facility] Comment on above: Result Comment: Non- GFR Calc Performed By: #### L 500.4050, L501.8100, L100.0500, L503.5510 ####[facility] [address] [place], [address] Globulin (S) [Mass/Vol] 3.6 g/dL Normal 2.2-4.2 [facility] Comment on above: Performed By: #### L 500.4050, L501.8100, L100.0500, L503.5510 ####[facility] [address] [place], [address] Glucose [Mass/Vol] 122 mg/dL High 74-106 [facility] Comment on above: Result Comment: Fast ing Glucose result from 100 to 125 mg/dLsuggests IMPAIRED HOMEOSTASIS per A.D.A. criteria. Performed By: #### L 500.4050, L501.8100, L100.0500, L503.5510 ####[facility] [address] [place], [address] Potassium [Moles/Vol] 4.3 mmol/L Normal 3.5-5.[address] [facility] Comment on above: Performed By: #### L 500.4050, L501.8100, L100.0500, L503.5510 ####[facility] [address] [place], [address] Sodium [Moles/Vol] 140 mmol/L Normal 136-145 [facility] Comment on above: Performed By: #### L 500.4050, L501.8100, L100.0500, L503.5510 ####[facility] [address] [place], [address] T PROT 6.7 g/dL Normal 6.4-8.2 [facility] Comment on above: Performed By: #### L 500.4050, L501.8100, L100.0500, L503.5510 ####[facility] [address] [place], [address] Urea nitrogen [Mass/Vol] 22 mg/dL High 7-18 [facility] Comment on above: Performed By: #### L 500.4050, L501.8100, L100.0500, L503.5510 ####[facility] [address] [place], [address] Creatinine [Mass/Vol]Ordered By: Pepe Ruiz on 05-16-2024 Serum or plasma creatinine measurement (mass/volume) 0.93 mg/dL 0.55-1.02 [facility] Erythrocyte distribution wid th (RBC) [Entitic vol]Ordered By: Pepe Ruiz on 05-16-2024 Erythrocyte distribution width standard deviation 49.5 fl High 35.1-43.9 [facility] Erythrocyte distribution wid th (RBC) [Ratio]Ordered By: Pepe Ruiz on 05-16-2024 Erythrocyte distribution width ratio 13.5 % 11.6-14.6 [facility] Estimated glomerular filtrat ion rate (GFR) AmericanOrdered By: Pepe Ruiz on 05-16-2024 Estimated glomerular filtration rate (GFR) 76 mL/min >60 [facility] Glomerular filtration rate ( GFR) estimationOrdered By: Pepe Ruiz on 05-16-2024 Glomerular filtration rate (GFR) estimation 63 mL/min >60 [facility] Glucose measurementOrdered B y: Pepe Ruiz on 05-16-2024 Glucose measurement 122 mg/dL High 74-106 [facility] Hematocrit Auto (Bld) [Volum e fraction]Ordered By: Pepe Ruiz on 05-16-2024 Automated blood hematocrit (percentage) 35.5 % Low 37-47 [facility] Hemoglobin measurementOrdere d By: Pepe Ruiz on 05-16-2024 Hemoglobin measurement 11.4 g/dL Low 12.0-15.0 [facility] MCV (RBC) [Entitic vol]Order ed By: Pepe Ruiz on 05-16-2024 MCV (mean corpuscular volume) determination 98.3 fL 81-99 [facility] Mean corpuscular hemoglobin (MCH) determinationOrdered By: Pepe Ruiz on 05-16-2024 Mean corpuscular hemoglobin (MCH) determination 31.6 pg 27.0-32.0 [facility] Mean corpuscular hemoglobin concentration (MCHC) determinationOrdered By: Pepe Ruiz on 05-16-2024 Mean corpuscular hemoglobin concentration (MCHC) determination 32.1 g/dL 32-36 [facility] Mean platelet volume determi nationOrdered By: Pepe Ruiz on 05-16-2024 Mean platelet volume determination 11.6 fl 6.2-12.0 [facility] Neurology Visit Reporton Neurology Visit Report Normal [facility] No Panel InformationOrdered By: Pepe Ruiz on 05-16-2024 15 U/L 15-37 [facility] Platelet countOrdered By: Ra cheyanne Ruiz on 05-16-2024 Platelet count 173 K/mm3 150-450 [facility] Potassium measurementOrdered By: Pepe Ruiz on 05-16-2024 Potassium measurement 4.3 mmol/L 3.5-5.[address] [facility] RBC Auto (Bld) [#/Vol]Ordere d By: Pepe Ruiz on 05-16-2024 Automated blood erythrocyte count 3.61 M/mm3 Low 4.2-5.4 [facility] Serum anion gap measurementO rdered By: Pepe Ruiz on 05-16-2024 Serum anion gap measurement 3 Low 5-15 [facility] Serum globulin measurementOr dered By: Pepe Ruiz on 05-16-2024 Serum globulin measurement 3.6 g/dL 2.2-4.2 [facility] Sodium levelOrdered By: Jimmieraymundo yorknapoleon Ruiz on 05-16-2024 Sodium level 140 mmol/L 136-145 [facility] Total proteinOrdered By: Jimmie juannapoleon Ruiz on 05-16-2024 Total protein 6.7 g/dL 6.4-8.2 [facility] Urea nitrogen [Mass/Vol]Orde red By: Pepe Ruiz on 05-16-2024 Serum or plasma urea nitrogen measurement (mass/volume) 22 mg/dL High 7-18 [facility] Valproate levelOrdered By: Tere Ruiz on 05-16-2024 Valproate level 74 ug/mL 50-100 [facility] Valproic Acid (Depakene) Lev tommy 05-16-2024 VALPROIC ACID 74 ug/mL Normal 50-100 [facility] Comment on above: Performed By: #### L 500.4050, L501.8100, L100.0500, L503.5510 ####[facility] [address] [place], [address] Venous blood ammonia measure mentOrdered By: Pepe Ruiz on 05-16-2024 Venous blood ammonia measurement 39.0 umol/L High 11-32 [facility] White blood cell (WBC) count Ordered By: Pepe Ruiz on 05-16-2024 White blood cell (WBC) count 3.5 K/mm3 Low 4.4-11.0 [facility] 6 Minute Walk Teston 04-25-2 024 6 Minute Walk Test Normal [facility] Office Visit Reporton 2023 Office Visit Report Normal [facility] Cardiology Visit Reporton Cardiology Visit Report Normal [facility] Absolute lymphocyte countOrd ered By: Pepe Ruiz on 09-07-2023 Lymphocytes Auto (Unsp spec) [#/Vol] 1.27 10*3/uL 0.83-4.51 [facility] Automated lymphocyte count a s percentage of total leukocytesOrdered By: Pepe Ruiz on 09-07-2023 Lymphocytes/100 WBC Auto (Unsp spec) 31.9 % 19-41 [facility] Basophil percentageOrdered B y: Pepe Ruiz on 09-07-2023 Basophils/100 WBC (Bld) 0.3 % 0-1 [facility] Eosinophils/100 WBC (Bld) 6.5 % 0-5 [facility] Hemoglobin (Bld) [Mass/Vol] 10.8 g/dL 12.0-15.0 [facility] Monocytes/100 WBC (Bld) 9.3 % 0-10 [facility] Neutrophils (Bld) [#/Vol] 2.0 10*3/uL 2.0-7.7 [facility] Neutrophils/100 WBC (Bld) 51.2 % 47-70 [facility] WBC (Bld) [#/Vol] 4.0 10*3/uL 4.4-11.0 [facility] Ammonia (P) [Moles/Vol] 67.0 umol/L 11-32 [facility] Basophil percentage 17.0 IU/mL <15 [facility] Bilirubin [Mass/Vol] 0.30 mg/dL 0.20-1.00 [facility] Comment on above: For patients on eltr ombopag therapy, use of Dimension Stephenson TBIL is not recommended. Chloride [Moles/Vol] 111 mmol/L 98-107 [facility] Glucose [Mass/Vol] 139 mg/dL 74-106 [facility] Comment on above: Fasting Glucose resu lt greater than or equal to 126 mg/dL suggests DIABETES MELLITUS per A.D.A. criteria. Potassium [Moles/Vol] 4.0 mmol/L 3.5-5.[address] [facility] Protein [Mass/Vol] 6.6 g/dL 6.4-8.2 [facility] Sodium [Moles/Vol] 141 mmol/L 136-145 [facility] Determination of erythrocyte mean corpuscular volume (MCV)Ordered By: Pepe Ruiz on 09-07-2023 MCV (RBC) [Entitic vol] 100.0 fL 81-99 [facility] Erythrocyte distribution wid th ratioOrdered By: Pepe Ruiz on 09-07-2023 Erythrocyte distribution width (RBC) [Ratio] 14.2 % 11.6-14.6 [facility] Erythrocyte distribution wid th standard deviationOrdered By: Pepe Ruiz on 09-07-2023 Erythrocyte distribution width (RBC) [Entitic vol] 52.2 fL 35.1-43.9 [facility] Erythrocyte sedimentation ra teOrdered By: Pepe Ruiz on 09-07-2023 ESR (Bld) [Velocity] 2 mm/h 0-30 [facility] Hematocrit Auto (Bld) [Volum e fraction]Ordered By: Pepeamol Ruiz on 09-07-2023 Hematocrit (Bld) [Volume fraction] 33.0 % 37-47 [facility] Immature granulocytes/100 WB C Auto (Bld)Ordered By: [facility] Southdavid on 09-07-2023 Immature granulocytes/100 WBC (Bld) 0.800 % 0.0-0.9 [facility] Comment on above: IG% - Immature Granu locytes (promyelocytes, myelocytes and metamyelocytes) > 1% indicates that a LEFT SHIFT is Present. Laboratory - Chemistry and C hemistry - challengeOrdered By: Pepeamol Ruiz on 09-07-2023 Albumin/Globulin [Mass ratio] 0.7 {ratio} 0.9-2.4 [facility] ALP [Catalytic activity/Vol] 93 U/L 45-117 [facility] ALT [Catalytic activity/Vol] 21 U/L 13-56 [facility] CO2 [Moles/Vol] 25.0 mmol/L 21.0-32.0 [facility] Cobalamin (Vitamin B12) [Mass/Vol] 366 pg/mL 211-911 [facility] Globulin (S) [Mass/Vol] 3.8 g/dL 2.2-4.2 [facility] Urea nitrogen/Creatinine [Mass ratio] 21.4 mg/mg 10-20 [facility] Laboratory - Hematology and Cell countsOrdered By: Pepeamol Ruiz on 09-07-2023 MCH (RBC) [Entitic mass] 32.7 pg 27.0-32.0 [facility] MCHC (RBC) [Mass/Vol] 32.7 g/dL 32-[address] [facility] Nucleated RBC/100 WBC (Bld) [Ratio] 0 % 0-5 [facility] Platelet mean volume (Bld) [Entitic vol] 12.0 fL 6.2-12.0 [facility] Platelets (Bld) [#/Vol] 186 10*3/uL 150-450 [facility] No Panel InformationOrdered By: Pepe Ruiz on 09-07-2023 Anti-Nuclear Antibody Screen Negative Negative [facility] Comment on above: Performed at: - [facility] [employer] [employer])[address] Director: Lobo Das PhD, Phone: [phone] C-Reactive Protein Extended Range < 2.90 mg/L 0.0-3.0 [facility] Comment on above: C-Reactive Protein ( CRP) provides useful information for thediagnosis, therapy and monitoring of inflammatory processesand associated diseases. For the evaluation of Relative Riskfor Cardiovascular Disease, a High Sensitivity CRP (HSCRP)should be ordered. Estimated GFR (MDRD) Amer 76 mL/min >60 [facility] Comment on above: GFR Calc Estimated GFR (MDRD) Non-Af Amer 63 mL/min >60 [facility] Comment on above: Non- GFR Calc Folate 9.10 ng/mL 3.1-55.4 [facility] Hepatitis B Surface Antigen Non-Reactive Nonreactive [facility] Hepatitis C Antibody Non-Reactive Nonreactive [facility] Comment on above: Non Reactive: < 0.8 Equivocal: >/= 0.8 to < 1.0 Reactive: >/= 1.0The CDC requires that a reactive/equivocal HCV antibody result be sent out for confirmation. HCV Quant by PCR testing. Valproic Acid (Depakene) Level 103 ug/mL 50-100 [facility] RBC Auto (Bld) [#/Vol]Ordere d By: Pepe Ruiz on 09-07-2023 RBC (Bld) [#/Vol] 3.30 10*6/uL 4.2-5.4 [facility] Serum cyclic citrullinated p eptide IgG antibody assay (units/volume)Ordered By: Pepe Ruiz on 09-07-2023 Cyclic citrullinated peptide IgG Qn 7 units 0-19 [facility] Comment on above: Negative <20 Weak po sitive 20 - 39 Moderate positive 40 - 59 Strong positive >59Performed at: [facility] [place] [address] [place], [place] [id number] Director: Adamaris Shi MD, Phone: [phone] at: [facility] [id number] [id number] Director: Lobo Das PhD, Phone: [phone] Serum hepatitis B virus surf kwadwo antibody IgG detectionOrdered By: Pepe Ruiz on 09-07-2023 HBV surface IgG Ql (S) Non-Reactive [facility] Comment on above: Non Reactive: Incons istent with immunity less than <10 mIU/mL Reactive: Consistent with immunity greater than or equal to 10 mIU/mL Serum or plasma calcium loretta urement (mass/volume)Ordered By: Pepe Ruiz on 09-07-2023 Calcium [Mass/Vol] 8.4 mg/dL 8.5-10.1 [facility] Serum or plasma creatinine m easurement (mass/volume)Ordered By: Pepe Ruiz on 09-07-2023 Creatinine [Mass/Vol] 0.94 mg/dL 0.55-1.[address] [facility] Comment on above: The validity of the calculated GFR & GFRAA in patients over 70 years has not been determined. Clinical correlation is essential. Serum or plasma thiamine kirill surement (mass/volume)Ordered By: Pepe Ruiz on 09-07-2023 Thiamine [Mass/Vol] 109.8 nmol/L 66.5-200.[address] [facility] Serum or plasma thyroid stim ulating hormone (TSH) measurement (units/volume)Ordered By: Pepe Ruiz on 09-07-2023 TSH Qn 2.91 uIU/mL 0.358-3.74 [facility] Serum or plasma urea nitroge n measurement (mass/volume)Ordered By: Pepe Ruiz on 09-07-2023 Urea nitrogen [Mass/Vol] 20 mg/dL 7-18 [facility] Thin prep Papanicolaou smear with manual screeningOrdered By: Pepe Ruiz on 09-07-2023 Thin prep Papanicolaou smear with manual screening 2.8 g/dL 3.2-5.0 [facility] Thin prep Papanicolaou smear with manual screening 21 U/L 15-37 [facility] Thin prep Papanicolaou smear with manual screening 5 5-15 [facility] Basophil percentageOrdered B y: Vadim Friend on 08-14-2023 Basophil percentage < 1.0 mg/dL 0.55-1.02 [facility] No Panel InformationOrdered By: Vadim Friend on 08-14-2023 Bedside Estimated GFR (eGFR) > 60.0000 mL/min >60 [facility] Absolute lymphocyte countOrd ered By: Mayda Garcia on 06-17-2023 Lymphocytes Auto (Unsp spec) [#/Vol] 0.86 10*3/uL 0.83-4.51 [facility] Automated lymphocyte count a s percentage of total leukocytesOrdered By: Mayda Garcia on 06-17-2023 Lymphocytes/100 WBC Auto (Unsp spec) 27.2 % 19-41 [facility] Basophil percentageOrdered B y: Mayda Garcia on 06-17-2023 Basophils/100 WBC (Bld) 0.6 % 0-1 [facility] Chloride [Moles/Vol] 112 mmol/L 98-107 [facility] Eosinophils/100 WBC (Bld) 2.8 % 0-5 [facility] Glucose [Mass/Vol] 138 mg/dL 74-106 [facility] Comment on above: Fasting Glucose resu lt greater than or equal to 126 mg/dL suggests DIABETES MELLITUS per A.D.A. criteria. Hemoglobin (Bld) [Mass/Vol] 12.2 g/dL 12.0-15.0 [facility] Monocytes/100 WBC (Bld) 6.0 % 0-10 [facility] Neutrophils (Bld) [#/Vol] 2.0 10*3/uL 2.0-7.7 [facility] Neutrophils/100 WBC (Bld) 63.1 % 47-70 [facility] Potassium [Moles/Vol] 4.1 mmol/L 3.5-5.[address] [facility] Sodium [Moles/Vol] 142 mmol/L 136-145 [facility] WBC (Bld) [#/Vol] 3.2 10*3/uL 4.4-11.0 [facility] Determination of erythrocyte mean corpuscular volume (MCV)Ordered By: Mayda Garcia on 06-17-2023 MCV (RBC) [Entitic vol] 99.0 fL 81-99 [facility] Erythrocyte distribution wid th ratioOrdered By: [facility] on 06-17-2023 Erythrocyte distribution width (RBC) [Ratio] 14.3 % 11.6-14.6 [facility] Erythrocyte distribution wid th standard deviationOrdered By: [facility] Ibanezchandana on 06-17-2023 Erythrocyte distribution width (RBC) [Entitic vol] 52.5 fL 35.1-43.9 [facility] Hematocrit Auto (Bld) [Volum e fraction]Ordered By: [facility] I[facility]zchandana on 06-17-2023 Hematocrit (Bld) [Volume fraction] 38.8 % 37-47 [facility] Immature granulocytes/100 WB C Auto (Bld)Ordered By: [facility] Shamarchandana on 06-17-2023 Immature granulocytes/100 WBC (Bld) 0.300 % 0.0-0.9 [facility] Comment on above: IG% - Immature Granu locytes (promyelocytes, myelocytes and metamyelocytes) > 1% indicates that a LEFT SHIFT is Present. Laboratory - Chemistry and C hemistry - challengeOrdered By: Mayda Garcia on 06-17-2023 CO2 [Moles/Vol] 26.0 mmol/L 21.0-32.0 [facility] Urea nitrogen/Creatinine [Mass ratio] 27.6 mg/mg 10-20 [facility] Laboratory - Hematology and Cell countsOrdered By: cosme Garcia on 06-17-2023 MCH (RBC) [Entitic mass] 31.1 pg 27.0-32.0 [facility] MCHC (RBC) [Mass/Vol] 31.4 g/dL 32-[address] [facility] Nucleated RBC/100 WBC (Bld) [Ratio] 0 % 0-5 [facility] Platelet mean volume (Bld) [Entitic vol] 11.2 fL 6.2-12.0 [facility] Platelets (Bld) [#/Vol] 184 10*3/uL 150-450 [facility] No Panel InformationOrdered By: Mayda Garcia on 06-17-2023 Estimated GFR (MDRD) Amer 87 mL/min >60 [facility] Comment on above: GFR Calc Estimated GFR (MDRD) Non-Af Amer 72 mL/min >60 [facility] Comment on above: Non- GFR Calc RBC Auto (Bld) [#/Vol]Ordere d By: Mayda Garcia on 06-17-2023 RBC (Bld) [#/Vol] 3.92 10*6/uL 4.2-5.4 [facility] Serum or plasma calcium loretta urement (mass/volume)Ordered By: Mayda Garcia on 06-17-2023 Calcium [Mass/Vol] 8.5 mg/dL 8.5-10.1 [facility] Serum or plasma creatinine m easurement (mass/volume)Ordered By: Mayda Garcia on 06-17-2023 Creatinine [Mass/Vol] 0.83 mg/dL 0.55-1.[address] [facility] Comment on above: The validity of the calculated GFR & GFRAA in patients over 70 years has not been determined. Clinical correlation is essential. Serum or plasma urea nitroge n measurement (mass/volume)Ordered By: Mayda Garcia on 06-17-2023 Urea nitrogen [Mass/Vol] 23 mg/dL 11-18 [facility] Thin prep Papanicolaou smear with manual screeningOrdered By: Mayda Garcia on 06-17-2023 Thin prep Papanicolaou smear with manual screening 4 09-15 [facility] Whole blood hemoglobin A1c/t otal hemoglobin ratio (mass fraction)Ordered By: Mayda Garcia on 06-17-2023 HbA1c (Bld) [Mass fraction] 6.3 % 3.8-5.6 [facility] Comment on above: Normal < 5.7 % Predi abetic 5.7 - 6.4 % Diabetic >or= 6.5 % Please note range changes. Absolute lymphocyte countOrd ered By: Carlos Bravo on 02-18-2023 Lymphocytes Auto (Unsp spec) [#/Vol] 1.35 10*3/uL 0.83-4.51 [facility] Basophil percentageOrdered B y: Pepe Ruiz on 02-18-2023 Ammonia (P) [Moles/Vol] 42.0 umol/L 11-32 [facility] Basophil percentage 42.0 umol/L 11-32 [facility] Basophil percentageOrdered B y: Carlos Bravo on 02-18-2023 Basophil percentage 96 mg/dL 74-106 [facility] Basophil percentage 7.4 g/dL 6.4-8.2 [facility] Basophil percentage 0.30 mg/dL 0.20-1.00 [facility] Basophil percentage 141 mmol/L 136-145 [facility] Basophil percentage 3.6 mmol/L 3.5-5.1 [facility] Basophil percentage 108 mmol/L 98-107 [facility] Basophils (Bld) [#/Vol] 5.6 10*3/uL 4.4-11.0 [facility] Basophils (Bld) [#/Vol] 3.4 10*3/uL 2.0-7.7 [facility] Basophils/100 WBC (Bld) 60.8 % 47-70 [facility] Basophils/100 WBC (Bld) 6.3 % 0-5 [facility] Basophils/100 WBC (Bld) 0.4 % 0-1 [facility] Bilirubin [Mass/Vol] 0.30 mg/dL 0.20-1.00 [facility] Comment on above: For patients on eltr ombopag therapy, use of Dimension [place] TBIL is not recommended. Chloride [Moles/Vol] 108 mmol/L 98-107 [facility] Eosinophils/100 WBC (Bld) 6.3 % 0-5 [facility] Glucose [Mass/Vol] 96 mg/dL 74-106 [facility] Neutrophils (Bld) [#/Vol] 3.4 10*3/uL 2.0-7.7 [facility] Neutrophils/100 WBC (Bld) 60.8 % 47-70 [facility] Potassium [Moles/Vol] 3.6 mmol/L 3.5-5.[address] [facility] Protein [Mass/Vol] 7.4 g/dL 6.4-8.2 [facility] Sodium [Moles/Vol] 141 mmol/L 136-145 [facility] WBC (Bld) [#/Vol] 5.6 10*3/uL 4.4-11.0 [facility] Blood erythrocytes count (nu mber/volume)Ordered By: Carlos Bravo on 02-18-2023 RBC (Bld) [#/Vol] 3.67 10*6/uL 4.2-5.4 [facility] Blood hemoglobin measurement (mass/volume)Ordered By: Carlos Bravo on 02-18-2023 Hemoglobin (Bld) [Mass/Vol] 11.2 g/dL 12.0-15.0 [facility] Blood lymphocytes/100 leukoc ytesOrdered By: Carlos Bravo on 02-18-2023 Lymphocytes/100 WBC (Bld) 24.1 % 19-41 [facility] Blood monocytes/100 leukocyt esOrdered By: Carlos Bravo on 02-18-2023 Monocytes/100 WBC (Bld) 8.2 % 0-10 [facility] Blood platelet mean volumeOr dered By: Carlos Bravo on 02-18-2023 Platelet mean volume (Bld) [Entitic vol] 10.9 fL 6.2-12.0 [facility] Determination of erythrocyte mean corpuscular volume (MCV)Ordered By: Carlos Bravo on 02-18-2023 MCV (RBC) [Entitic vol] 96.7 fL 81-99 [facility] Hematocrit Auto (Bld) [Volum e fraction]Ordered By: Carlos Bravo on 02-18-2023 Hematocrit (Bld) [Volume fraction] 35.5 % 37-47 [facility] Laboratory - Chemistry and C hemistry - challengeOrdered By: Carlos Bravo on 02-18-2023 ALP [Catalytic activity/Vol] 79 U/L 45-117 [facility] ALT [Catalytic activity/Vol] 13 U/L 13-56 [facility] CO2 [Moles/Vol] 24.0 mmol/L 21.0-32.0 [facility] Free T4 [Mass/Vol] 1.01 ng/dL 0.76-1.46 [facility] Globulin (S) [Mass/Vol] 4.8 g/dL 2.2-4.2 [facility] Natriuretic peptide B (Bld) [Mass/Vol] 26.8 pg/mL 0-100 [facility] Urea nitrogen/Creatinine [Mass ratio] 17.6 mg/mg 10- [facility] Laboratory - Hematology and Cell countsOrdered By: Carlos Bravo on 02-18-2023 Erythrocyte distribution width (RBC) [Entitic vol] 52.1 fL 35.1-43.9 [facility] Erythrocyte distribution width (RBC) [Ratio] 14.6 % 11.6-14.6 [facility] Immature granulocytes/100 WBC (Bld) 0.200 % 0.0-0.9 [facility] Comment on above: IG% - Immature Granu locytes (promyelocytes, myelocytes and metamyelocytes) > 1% indicates that a LEFT SHIFT is Present. MCH (RBC) [Entitic mass] 30.5 pg 27.0-32.0 [facility] Nucleated RBC/100 WBC (Bld) [Ratio] 0 % 0-5 [facility] MCHC Auto (RBC) [Mass/Vol]Or dered By: Carlos Bravo on 02-18-2023 MCHC (RBC) [Mass/Vol] 31.5 g/dL 32-[address] [facility] No Panel InformationOrdered By: Carlos Bravo on 02-18-2023 Estimated GFR (MDRD) Amer 92 mL/min >60 [facility] Comment on above: GFR Calc Estimated GFR (MDRD) Non-Af Amer 76 mL/min >60 [facility] Comment on above: Non- GFR Calc Thyroid Stimulating Hormone (TSH) 3.45 uIU/mL 0.358-3.74 [facility] 30.5 pg 27.0-32.0 [facility] 14.6 % 11.6-14.6 [facility] 52.1 fl 35.1-43.9 [facility] 0.200 % 0.0-0.9 [facility] 0 % 0-5 [facility] 76 mL/min >60 [facility] 92 mL/min >60 [facility] 17.6 RATIO 10- [facility] 4.8 g/dL 2.2-4.2 [facility] 79 U/L 45-117 [facility] 13 U/L 13-56 [facility] 24.0 mmol/L 21.0-32.0 [facility] 3.45 uIU/mL 0.358-3.74 [facility] 26.8 pg/mL 0-100 [facility] 1.01 ng/dL 0.76-1.46 [facility] No Panel InformationOrdered By: Pepe Ruiz on 02-18-2023 Valproic Acid (Depakene) Level 103 ug/mL 50-100 [facility] Whole Blood Vitamin B1 Level 106.4 nmol/L 66.5-200.0 [facility] Comment on above: Performed at: [employer] [address] [id number] Director: Adamaris Shi MD, Phone: [phone] 103 ug/mL 50-100 [facility] 106.4 nmol/L 66.5-200.0 [facility] Platelets bldOrdered By: Aj Bravo on 02-18-2023 Platelets (Bld) [#/Vol] 251 10*3/uL 150-450 [facility] Serum or plasma albumin loretta urement (mass/volume)Ordered By: Carlos Bravo on 02-18-2023 Albumin [Mass/Vol] 2.6 g/dL 3.2-5.0 [facility] Serum or plasma albumin/glob ulin mass ratioOrdered By: Carlos Bravo on 02-18-2023 Albumin/Globulin [Mass ratio] 0.5 {ratio} 0.9-2.4 [facility] Serum or plasma calcium loretta urement (mass/volume)Ordered By: Carlos Bravo on 02-18-2023 Calcium [Mass/Vol] 8.7 mg/dL 8.5-10.1 [facility] Serum or plasma creatinine m easurement (mass/volume)Ordered By: Carlos rBavo on 02-18-2023 Creatinine [Mass/Vol] 0.80 mg/dL 0.55-1.[address] [facility] Comment on above: The validity of the calculated GFR & GFRAA in patients over 70 years has not been determined. Clinical correlation is essential. Serum or plasma urea nitroge n measurement (mass/volume)Ordered By: Carlos Bravo on 02-18-2023 Urea nitrogen [Mass/Vol] 14 mg/dL 11-18 [facility] Thin prep Papanicolaou smear with manual screeningOrdered By: Carlos Bravo on 02-18-2023 Thin prep Papanicolaou smear with manual screening 11 U/L 15-37 [facility] Thin prep Papanicolaou smear with manual screening 9 5-15 [facility] Iron measurement (mass/mass) Ordered By: Mayda Garcia on 02-04-2023 Iron (Unsp spec) [Mass/Mass] 41 ug/dL 50-170 [facility] Laboratory - Chemistry and C hemistry - challengeOrdered By: Mayda Garcia on 02-04-2023 Cobalamin (Vitamin B12) [Mass/Vol] 262 pg/mL 211- [facility] No Panel InformationOrdered By: Mayda Garcia on 02-04-2023 Total Iron Binding Capacity 217 ug/dL 250-450 [facility] 262 pg/mL [facility] 217 ug/dL 250-450 [facility] Serum or plasma ferritin kirill surement (mass/volume)Ordered By: Mayda Garcia on 02-04-2023 Ferritin [Mass/Vol] 364 ng/mL 8-252 [facility] Serum or plasma folate measu rement (mass/volume)Ordered By: Mayda Garcia on 02-04-2023 Folate [Mass/Vol] 17.40 ng/mL 3.1-55.4 [facility] Absolute lymphocyte countOrd ered By: Robbin Carlos on 01-26-2023 Lymphocytes Auto (Unsp spec) [#/Vol] 1.96 10*3/uL 0.83-4.51 [facility] Basophil percentageOrdered B y: Robbin Carlos on 01-26-2023 Basophil percentage 85 mg/dL 74-106 [facility] Basophil percentage 140 mmol/L 136-145 [facility] Basophil percentage 3.9 mmol/L 3.5-5.1 [facility] Basophil percentage 108 mmol/L 98-107 [facility] Basophils (Bld) [#/Vol] 4.8 10*3/uL 4.4-11.0 [facility] Basophils (Bld) [#/Vol] 2.2 10*3/uL 2.0-7.7 [facility] Basophils/100 WBC (Bld) 0.6 % 0-1 [facility] Basophils/100 WBC (Bld) 46.3 % 47-70 [facility] Basophils/100 WBC (Bld) 3.3 % 0-5 [facility] Chloride [Moles/Vol] 108 mmol/L 98-107 [facility] Eosinophils/100 WBC (Bld) 3.3 % 0-5 [facility] Glucose [Mass/Vol] 85 mg/dL 74-106 [facility] Neutrophils (Bld) [#/Vol] 2.2 10*3/uL 2.0-7.7 [facility] Neutrophils/100 WBC (Bld) 46.3 % 47-70 [facility] Potassium [Moles/Vol] 3.9 mmol/L 3.5-5.[address] [facility] Sodium [Moles/Vol] 140 mmol/L 136-145 [facility] WBC (Bld) [#/Vol] 4.8 10*3/uL 4.4-11.0 [facility] Blood erythrocytes count (nu mber/volume)Ordered By: Robbin Carlos on 01-26-2023 RBC (Bld) [#/Vol] 3.21 10*6/uL 4.2-5.4 [facility] Blood hemoglobin measurement (mass/volume)Ordered By: Robbin Carlos on 01-26-2023 Hemoglobin (Bld) [Mass/Vol] 9.9 g/dL 12.0-15.0 [facility] Blood lymphocytes/100 leukoc ytesOrdered By: Robbin Carlos on 01-26-2023 Lymphocytes/100 WBC (Bld) 41.0 % 19-41 [facility] Blood monocytes/100 leukocyt esOrdered By: Robbin Carlos on 01-26-2023 Monocytes/100 WBC (Bld) 8.4 % 0-10 [facility] Blood platelet mean volumeOr dered By: Robbin Carlos on 01-26-2023 Platelet mean volume (Bld) [Entitic vol] 11.4 fL 6.2-12.0 [facility] Determination of erythrocyte mean corpuscular volume (MCV)Ordered By: Robbin Carlos on 01-26-2023 MCV (RBC) [Entitic vol] 96.3 fL 81-99 [facility] Hematocrit Auto (Bld) [Volum e fraction]Ordered By: Robbin Carlos on 01-26-2023 Hematocrit (Bld) [Volume fraction] 30.9 % 37-47 [facility] Laboratory - Chemistry and C hemistry - challengeOrdered By: Robbin Carlos on 01-26-2023 CO2 [Moles/Vol] 27.0 mmol/L 21.0-32.0 [facility] Urea nitrogen/Creatinine [Mass ratio] 17.4 mg/mg 10-20 [facility] Laboratory - Hematology and Cell countsOrdered By: Robbin Carlos on 01-26-2023 Erythrocyte distribution width (RBC) [Entitic vol] 51.8 fL 35.1-43.9 [facility] Erythrocyte distribution width (RBC) [Ratio] 14.6 % 11.6-14.6 [facility] Immature granulocytes/100 WBC (Bld) 0.400 % 0.0-0.9 [facility] Comment on above: IG% - Immature Granu locytes (promyelocytes, myelocytes and metamyelocytes) > 1% indicates that a LEFT SHIFT is Present. MCH (RBC) [Entitic mass] 30.8 pg 27.0-32.0 [facility] Nucleated RBC/100 WBC (Bld) [Ratio] 0 % 0-5 [facility] MCHC Auto (RBC) [Mass/Vol]Or dered By: Robbin Carlos on 01-26-2023 MCHC (RBC) [Mass/Vol] 32.0 g/dL 32-[address] [facility] No Panel InformationOrdered By: Robbin Carlos on 01-26-2023 Estimated Creatinine Clearance Calc 41.40 ml/min [facility] Estimated GFR (MDRD) Amer 99 mL/min >60 [facility] Comment on above: GFR Calc Estimated GFR (MDRD) Non-Af Amer 82 mL/min >60 [facility] Comment on above: Non- GFR Calc 30.8 pg 27.0-32.0 [facility] 14.6 % 11.6-14.6 [facility] 51.8 fl 35.1-43.9 [facility] 0.400 % 0.0-0.9 [facility] 0 % 0-5 [facility] 82 mL/min >60 [facility] 99 mL/min >60 [facility] 41.40 ml/min [facility] 17.4 RATIO 10-20 [facility] 27.0 mmol/L 21.0-32.0 [facility] Platelets bldOrdered By: Robbin Carlos on 01-26-2023 Platelets (Bld) [#/Vol] 149 10*3/uL 150-450 [facility] Serum or plasma calcium loretta urement (mass/volume)Ordered By: Robbin Carlos on 01-26-2023 Calcium [Mass/Vol] 8.5 mg/dL 8.5-10.1 [facility] Serum or plasma creatinine m easurement (mass/volume)Ordered By: Robbin Carlos on 01-26-2023 Creatinine [Mass/Vol] 0.75 mg/dL 0.55-1.[address] [facility] Comment on above: The validity of the calculated GFR & GFRAA in patients over 70 years has not been determined. Clinical correlation is essential. Serum or plasma urea nitroge n measurement (mass/volume)Ordered By: Robbin Carlos on 01-26-2023 Urea nitrogen [Mass/Vol] 13 mg/dL 7-18 [facility] Thin prep Papanicolaou smear with manual screeningOrdered By: Robbin Carlos on 01-26-2023 Thin prep Papanicolaou smear with manual screening 5 5-15 [facility] Basophil percentageOrdered B y: Robbin Carlos on 01-22-2023 Basophil percentage 6.4 g/dL 6.4-8.2 [facility] Basophil percentage 0.20 mg/dL 0.20-1.00 [facility] Bilirubin [Mass/Vol] 0.20 mg/dL 0.20-1.00 [facility] Comment on above: For patients on eltr ombopag therapy, use of Dimension [place] TBIL is not recommended. Protein [Mass/Vol] 6.4 g/dL 6.4-8.2 [facility] Laboratory - Chemistry and C hemistry - challengeOrdered By: Robbin Carlos on 01-22-2023 ALP [Catalytic activity/Vol] 102 U/L 45-117 [facility] ALT [Catalytic activity/Vol] 28 U/L - [facility] Globulin (S) [Mass/Vol] 3.9 g/dL 2.2-4.2 [facility] No Panel InformationOrdered By: Robbin Carlos on 01-22-2023 3.9 g/dL 2.2-4.2 [facility] 102 U/L 45-117 [facility] 28 U/L [facility] Serum or plasma albumin loretta urement (mass/volume)Ordered By: Robbin Carlos on 01-22-2023 Albumin [Mass/Vol] 2.5 g/dL 3.2-5.0 [facility] Serum or plasma albumin/glob ulin mass ratioOrdered By: Robbin Carlos on 01-22-2023 Albumin/Globulin [Mass ratio] 0.6 {ratio} 0.9-2.4 [facility] Thin prep Papanicolaou smear with manual screeningOrdered By: Robbin Carlos on 01-22-2023 Thin prep Papanicolaou smear with manual screening 26 U/L 15-37 [facility] Whole blood hemoglobin A1c/t otal hemoglobin ratio (mass fraction)Ordered By: Robbin Carlos on 01-22-2023 HbA1c (Bld) [Mass fraction] 6.4 % 3.8-5.6 [facility] Comment on above: Normal < 5.7 % Predi abetic 5.7 - 6.4 % Diabetic >or= 6.5 % Please note range changes. SARS-CoV-2 (COVID-19) Ag IA. rapid Ql (Resp)Ordered By: Robbin Carlos on 01-21-2023 COVID-19 virus antigen assay SARS-CoV-2 (COVID 19) [facility] SARS-CoV-2 Antigen (Rapid) SARS-CoV-2 (COVID 19) [facility] COVID-19 virus antigen assay SARS-CoV-2 (COVID 19) [facility] Glucose Glucometer (BldC) [M ass/Vol]Ordered By: Robbin Carlos on 01-18-2023 Glucose [Mass/Vol] 72 mg/dL 74-106 [facility] Comment on above: MANAGEMENT OF PATIEN T CARE PER NURSING PROTOCOL POCT glucose meteron 023 Glucose [Mass/Vol] 98 mg/dL 70 - 100 mg/dL [facility] Interpretation and review of laboratory results Normal [facility] Performed by: [facility], [address] [place] [id number] CLIA ID: [id number] [facility] [employer] [facility] [employer] POCT glucose meteron 023 Glucose [Mass/Vol] 98 mg/dL 70 - 100 mg/dL [facility] Interpretation and review of laboratory results Normal [facility] Performed by: [facility], [address] [place] [id number] CLIA ID: [id number] [facility] [employer] [facility] [employer] POCT glucose meteron 023 Glucose [Mass/Vol] 157 mg/dL High 70 - 100 mg/dL [facility] Interpretation and review of laboratory results Abnormal [facility] Performed by: [facility], [address] [place] [id number] CLIA ID: [id number] [facility] [employer] [facility] Glucose [Mass/Vol] 113 mg/dL High 70 - 100 mg/dL [facility] Interpretation and review of laboratory results Abnormal [facility] Performed by: [facility], [address] [place] [id number] CLIA ID: [id number] [facility] [employer] [facility] [employer] XR Chest Single viewon 01-08 [facility] 1950 [id number] Exam Date/Time: 01/08/2023 05:19 Procedure: XR CHEST [...] MD Electronically Signed Date/Time: 01/08/2023 7:43 AM [facility] Gómez Calvert MD - 01/08/2023 Patient Name: [facility] 1950 [id number] Exam Date/Time: 01/08/2023 05:19 Procedure: XR CHEST [...] [facility] Rad[facility] Study observation (narrative) [facility] Basic metabolic 1998 panelon 01-07-2023 Anion gap [Moles/Vol] 9 mmol/L 3 - 13 mmol/L [facility] Calcium [Mass/Vol] 8.5 mg/dL 8.4 - 10. 4 mg/dL [facility] Chloride [Moles/Vol] 101 mmol/L 98 - 10 7 mmol/L [facility] CO2 [Moles/Vol] 27 mmol/L 22 - 30 mmol/L [facility] Creatinine [Mass/Vol] 0.91 mg/dL 0.52 - 1.04 mg/dL [facility] GFR/1.73 sq M.predicted MDRD (S/P/Bld) [Vol rate/Area] 68.0 mL/min/{1.73_m2} - PINF [facility] Comment on above: Calculation based on the Chronic Kidney Disease Epidemiology Collaboration (CKD-EPI) equation refit without adjustment for race Glucose [Mass/Vol] 83 mg/dL 70 - 100 mg/dL [facility] Potassium [Moles/Vol] 4.2 mmol/L 3.5 - 5.1 mmol/L [facility] Sodium [Moles/Vol] 137 mmol/L 135 - 145 mmol/L [facility] Urea nitrogen [Mass/Vol] 30 mg/dL High 7 - 17 mg/dL [facility] CBC panel Auto (Bld)Ordered By: Ekaterina Fountain on 01-07-2023 Erythrocyte distribution width (RBC) [Ratio] 15.8 % High 11.5 - 14.5 % [facility] Hematocrit (Bld) [Volume fraction] 30.0 % Low 35.0 - 47.0 % [facility] Hemoglobin (Bld) [Mass/Vol] 10.3 g/dL Low 11.7 - 16.0 g/dL [facility] Interpretation and review of laboratory results Abnormal [facility] MCH (RBC) [Entitic mass] 32.0 pg 26.0 - 34.0 pg [facility] MCHC (RBC) [Mass/Vol] 34.2 % 32.0 - 36.0 % [facility] MCV (RBC) [Entitic vol] 93.7 fL 80.0 - 98.0 fL [facility] Platelet mean volume (Bld) [Entitic vol] 9.1 fL 7.4 - 12.4 fL [facility] Platelets (Bld) [#/Vol] 162 10*3/uL 140 - 440 10*3/uL [facility] RBC (Bld) [#/Vol] 3.21 10*6/uL Low 3.8 - 5.20 10*6/uL [facility] WBC (Bld) [#/Vol] 5.4 10*3/uL 3.6 - 10.7 10*3/uL [facility] Magnesiumon 01-07-2023 Magnesium [Mass/Vol] 2.4 mg/dL High 1.6 - 2 .3 mg/dL [facility] No Panel Informationon 01-07 Interpretation and review of laboratory results Abnormal [facility] POCT glucose meteron 023 Glucose [Mass/Vol] 102 mg/dL High 70 - 100 mg/dL [facility] Interpretation and review of laboratory results Abnormal [facility]formed by: [facility], [address] [place] [id number] CLIA ID: [id number] [facility] Glucose [Mass/Vol] 118 mg/dL High 70 - 100 mg/dL [facility] Interpretation and review of laboratory results Abnormal [facility] Performed by: [facility], [address] [place] [address] CLIA ID: [id number] [facility] [employer] Glucose [Mass/Vol] 124 mg/dL High 70 - 100 mg/dL [facility] Interpretation and review of laboratory results Abnormal [facility] Performed by: [facility], [address] [place] [address] CLIA ID: [id number] [employer] Progress Noteon 01-07-2023 Progress Note Department of Embalmer/Funeral Director al Medicine Division of Endocrinology, Diabetes, & Metabolism Endocrinology Note Patient Name: Lacy Alvarado : 1950 AGE: 72 y.o. Room/Bed: T1-103/T1-103 A Admission Date: 01/01/2023 Visit Date: 01/07/2023 Reason for Endocrine Consult: post op heart Provider/Team Requesting Consult: edwin PCP: MAYDA GARCIA Outpt Bridge/Structure Inspection Team Leader: No ASSESSMENT: DM 2 with hyperglycemia without termite control technician insulin Stress hyperglycemia CAD s/p Cabgx4 PLAN: [...] Oral, Daily (more content not included)... Normal [facility] Progress Note Physical Therapy Facility/Department: [facility] Physical Therapy Daily Treatment Note NAME: Lacy Alvarado : 1950 Date of Service: 01/07/2023 Discharge Recommendations: IP Rehab, Alf Facility PT Equipment Recommendations Equipment Needed: No [...] The primary encounter diagnosis was CAD in [place] artery. A diagnosis of Coronary artery disease involving coronary bypass graft, unspecified whether angina present, unspecified whether [place] or transplanted heart was also pertinent to this visit. has a past medical history of CHF (congestive heart failure) (CMS/HCC) ([facility]), Diabetes mellitus ([facility]), GERD (gastroesophageal reflux disease), Hyperlipidemia, Hypertension, RA (rheumatoid arthritis) ([facility]), Seizure ([facility]), Seizures ([facility]), and Sleep apnea. has a [...] / Caregiver Present: No Diagnosis: CAD in [place] artery s/p CABG on 01/01 Follows Commands: [...] for pur (more content not included)... Normal [facility] XR CHEST 1 VIEWon 01-07-2023 [...] Signed Date/Time: 01/07/2023 7:57 AM EDT Normal [facility] XR Chest Single viewon 01-07 Impression: As above. Report Dictated on Electronically Signed By: Nely Pierce MD Electronically Signed Date/Time: 01/07/2023 7:57 AM EDT [facility] Patient Name: LACY SAVAGE : 1950 Exam Date/Time: 01/07/2023 05:18 Procedure: XR CHEST 1 VIEW Ordering Provider: WEAVER JENNIFER Reason For Exam: Shortness of breath Examination: Portable chest Indication: Shortness of breath Comparison: Previous day Findings: The cardiac silhouette is enlarged with median sternotomy changes. Suspect small pleural effusions. No gross consolidation or sizable infiltrate noted. No sizable pneumothorax. [facility] Nely Pierce MD - 01/07/2023 Patient Name: [...] Electronically Signed Date/Time: 01/07/2023 7:57 AM EDT [facility] Radiology Study observation (narrative) [facility] XR Chest Single viewOrdered By: Nely Pierce on 01-07-2023 [facility] [employer] Work Phone: Basic metabolic 1998 panelon 01-06-2023 Anion gap [Moles/Vol] 11 mmol/L 3 - 13 mmol/L [facility] [employer] Calcium [Mass/Vol] 8.6 mg/dL 8.4 - 10. 4 mg/dL [facility] [employer] Chloride [Moles/Vol] 98 mmol/L 98 - 10 7 mmol/L [facility] [employer] CO2 [Moles/Vol] 27 mmol/L 22 - 30 mmol/L [facility] [employer] Creatinine [Mass/Vol] 0.99 mg/dL 0.52 - 1.04 mg/dL [facility] [employer] GFR/1.73 sq M.predicted MDRD (S/P/Bld) [Vol rate/Area] 61.5 mL/min/{1.73_m2} - PINF [facility] Comment on above: Calculation based on the Chronic Kidney Disease Epidemiology Collaboration (CKD-EPI) equation refit without adjustment for race Glucose [Mass/Vol] 95 mg/dL 70 - 100 mg/dL [facility] [employer] Potassium [Moles/Vol] 3.9 mmol/L 3.5 - 5.1 mmol/L [facility] Sodium [Moles/Vol] 136 mmol/L 135 - 145 mmol/L [facility] [employer] Urea nitrogen [Mass/Vol] 39 mg/dL High 7 - 17 mg/dL [facility] [employer] [facility] 01-06-[address] [facility] unable to accept patient, too functional. Updated patient at bedside and alyssa Holloway (HCPOA) over the phone. Declined SNF at this time, would like to plan discharge home with HHC including PT/OT/SN/GREASE BUFFER if possible. Will updated [facility] P[facility], CTS LEAD SIMULATION MODELING ENGINEER aware. Normal [facility] CBC panel Auto (Bld)Ordered By: Farhat Curtis on 01-06-2023 Erythrocyte distribution width (RBC) [Ratio] 16.2 % High 11.5 - 14.5 % [facility] Hematocrit (Bld) [Volume fraction] 30.7 % Low 35.0 - 47.0 % [facility] Hemoglobin (Bld) [Mass/Vol] 10.2 g/dL Low 11.7 - 16.0 g/dL [facility] Interpretation and review of laboratory results Abnormal [facility] MCH (RBC) [Entitic mass] 31.7 pg 26.0 - 34.0 pg [facility] MCHC (RBC) [Mass/Vol] 33.3 % 32.0 - 36.0 % [facility] MCV (RBC) [Entitic vol] 95.3 fL 80.0 - 98.0 fL [facility] Platelet mean volume (Bld) [Entitic vol] 9.2 fL 7.4 - 12.4 fL [facility] Platelets (Bld) [#/Vol] 141 10*3/uL 140 - 440 10*3/uL [facility] RBC (Bld) [#/Vol] 3.22 10*6/uL Low 3.8 - 5.20 10*6/uL [facility] WBC (Bld) [#/Vol] 5.6 10*3/uL 3.6 - 10.7 10*3/uL [facility] Magnesiumon 01-06-2023 Magnesium [Mass/Vol] 2.7 mg/dL High 1.6 - 2 .3 mg/dL [facility] [employer] No Panel Informationon 01-06 Interpretation and review of laboratory results Abnormal [facility] POCT glucose meteron 023 Glucose [Mass/Vol] 106 mg/dL High 70 - 100 mg/dL [facility] Interpretation and review of laboratory results Abnormal [facility]formed by: [facility], [address] [place] [id number] CLIA ID: [id number] [facility] Glucose [Mass/Vol] 97 mg/dL 70 - 100 mg/dL [facility] Interpretation and review of laboratory results Normal [facility] Performed by: [facility], [address] [place] [id number] CLIA ID: [id number] [facility] Glucose [Mass/Vol] 109 mg/dL High 70 - 100 mg/dL [facility] Interpretation and review of laboratory results Abnormal [facility] Performed by: [email or web address], [address] [place] [id number] CLIA ID: [id number] [facility] Progress Noteon 01-06-2023 Progress Note Occupational [...] The primary encounter diagnosis was CAD in [place] artery. A diagnosis of Coronary artery disease involving coronary bypass graft, unspecified whether angina present, unspecified whether [place] or transplanted heart was also pertinent to this visit. has a past medical history of CHF (congestive heart failure) ([facility]/HCC) ([facility]), Diabetes mellitus ([facility]), GERD (gastroesophageal reflux disease), Hyperlipidemia, Hypertension, RA (rheumatoid arthritis) ([facility]), Seizure ([facility]), Seizures ([facility]), and Sleep apnea. has a [...] System [facility] Progress Note Physical Therapy Facility/Department: [facility] Physical Therapy Daily Treatment Note NAME: Lacy [...] The primary encounter diagnosis was CAD in [place] artery. A diagnosis of Coronary artery disease involving coronary bypass graft, unspecified whether angina present, unspecified whether [place] or transplanted heart was also pertinent to this visit. has a past medical history of CHF (congestive heart failure) ([facility]/HCC) ([facility]), Diabetes mellitus ([facility]), GERD (gastroesophageal reflux disease), Hyperlipidemia, Hypertension, RA (rheumatoid arthritis) ([facility]), Seizure ([facility]), Seizures ([facility]), and Sleep apnea. has a [...] / Caregiver Present: No Diagnosis: CAD in [place] artery s/p CABG on 01/01 Follows Commands: [...] Restraints Init (more content not included)... Normal [facility] Progress Note ---- -------- Attestation [...] Milian. Patient was admitted on 12/18/22 to [facility] with CP history of CHF, CAD, DM [...] [x] N (more content not included)... Normal [facility] XR CHEST 1 VIEWon 01-06-2023 XR CHEST 1 VIEW Patient Name: LACY SAV[facility] 1950 [id number] Exam Date/Time: 01/06/2023 05:16 Procedure: XR CHEST [...] Electronically Signed Date/Time: 01/06/2023 9:27 AM EDT [facility] XR Chest Single viewon 01-06 Layering right effus ion. Atelectasis of the left base. Report Dictated on Electronically Signed By: Eyad Cohen DO Electronically Signed Date/Time: 01/06/2023 9:27 AM EDT [facility] Patient Name: LACY SAVAGE : 1950 [...] patient has undergone prior open heart surgery. [facility] Eyad Cohen DO - 01/06/2023 Patient [...] Electronically Signed Date/Time: 01/06/2023 9:27 AM EDT [facility] [employer] Radiology Study observation (narrative) [facility] [employer] XR Chest Single viewOrdered By: Eyad Cohen on 01-06-2023 [facility] [employer] Work Phone: Basic metabolic 1998 panelon 01-05-2023 Anion gap [Moles/Vol] 11 mmol/L 3 - 13 mmol/L [facility] [employer] Calcium [Mass/Vol] 8.5 mg/dL 8.4 - 10. 4 mg/dL [facility] [employer] Chloride [Moles/Vol] 98 mmol/L 98 - 10 7 mmol/L [facility] [employer] CO2 [Moles/Vol] 27 mmol/L 22 - 30 mmol/L [facility] [employer] Creatinine [Mass/Vol] 1.25 mg/dL High 0.52 - 1.04 mg/dL [facility] [employer] GFR/1.73 sq M.predicted MDRD (S/P/Bld) [Vol rate/Area] 46.5 mL/min/{1.73_m2} Low - PINF [facility] [employer] Comment on above: Calculation based on the Chronic Kidney Disease Epidemiology Collaboration (CKD-EPI) equation refit without adjustment for race Glucose [Mass/Vol] 98 mg/dL 70 - 100 mg/dL [facility] [employer] Potassium [Moles/Vol] 3.8 mmol/L 3.5 - 5.1 mmol/L [facility] [employer] Sodium [Moles/Vol] 137 mmol/L 135 - 145 mmol/L [facility] [employer] Urea nitrogen [Mass/Vol] 43 mg/dL High 7 - 17 mg/dL [facility] [employer] CBC panel Auto (Bld)on 01-05 Erythrocyte distribution width (RBC) [Ratio] 16.0 % High 11.5 - 14.5 % [facility] Hematocrit (Bld) [Volume fraction] 28.7 % Low 35.0 - 47.0 % [facility] Hemoglobin (Bld) [Mass/Vol] 9.9 g/dL Low 11.7 - 16.0 g/dL [facility] Interpretation and review of laboratory results Abnormal [facility] MCH (RBC) [Entitic mass] 32.1 pg 26.0 - 34.0 pg [facility] MCHC (RBC) [Mass/Vol] 34.3 % 32.0 - 36.0 % [facility] MCV (RBC) [Entitic vol] 93.5 fL 80.0 - 98.0 fL [facility] Platelet mean volume (Bld) [Entitic vol] 9.9 fL 7.4 - 12.4 fL [facility] Platelets (Bld) [#/Vol] 114 10*3/uL Low 140 - 440 10*3/uL [facility] RBC (Bld) [#/Vol] 3.07 10*6/uL Low 3.8 - 5.20 10*6/uL [facility] WBC (Bld) [#/Vol] 6.7 10*3/uL 3.6 - 10.7 10*3/uL [facility] Magnesiumon 01-05-2023 Magnesium [Mass/Vol] 2.8 mg/dL High 1.6 - 2 .3 mg/dL [facility] No Panel Informationon 01-05 Interpretation and review of laboratory results Abnormal [facility] Blood Expiration Date [id number] [facility] Crossmatch interpretation COMP [facility] Dispense Status Released from Crossmatch [facility] Product Blood Type 5100 [facility] PRODUCT CODE [id number] [facility] Unit ABO O [facility] Unit RH Positive [facility] Unit Volume 300 mL [facility] POCT glucose meteron 023 Glucose [Mass/Vol] 105 mg/dL High 70 - 100 mg/dL [facility] Interpretation and review of laboratory results Abnormal [facility] Performed by: [facility], [address] [place] [id number] CLIA ID: [id number] [facility] Glucose [Mass/Vol] 110 mg/dL High 70 - 100 mg/dL [facility] Interpretation and review of laboratory results Abnormal [facility] Performed by: [facility], [address] [place] [address] CLIA ID: [id number] [employer] RBC: 2 Unitson 01-05 Unit Number [id number] [facility] Unit Number [id number] [facility] Progress Noteon 01-05-2023 Progress Note Department of Embalmer/Funeral Director al Medicine Division of Endocrinology, Diabetes, & Metabolism Endocrinology Note Patient Name: Lacy Alvarado : 1950 AGE: 72 y.o. Room/Bed: T1103/Rust103 A Admission Date: 01/01/2023 Visit Date: 01/05/2023 Reason for Endocrine Consult: post op heart Provider/Team Requesting Consult: cts PCP: MAYDA GARCIA Outpt Bridge/Structure Inspection Team Leader: No ASSESSMENT: DM 2 with hyperglycemia without [...] polyethylene gly (more content not included)... Normal [facility] Progress Note ---- -------- Attestation [...] Milian. Patient was admitted on 12/18/22 to [facility] with CP history of CHF, CAD, DM [...] lasix today. (more content not included)... Normal [facility] XR CHEST 1 VIEWon 01-05-2023 XR CHEST 1 VIEW Patient Name: LAC[facility] 1950 [id number] Exam Date/Time: 01/05/2023 05:19 Procedure: XR CHEST [...] Signed Date/Time: 01/05/2023 5:[address] [facility] XR Chest Single viewon 01-05 See findings. Report Dictated on Electronically Signed By: Jake Vasquez MD Electronically Signed Date/Time: 01/05/2023 5:37 AM EDT [facility] Patient Name: LACY SAVAGE [facility] 1950 [id number] Exam Date/Time: 01/05/2023 05:19 Procedure: XR CHEST [...] unremarkable. Bones: No acute osseous process identified. [facility] Jake Vasquez MD - 01/05/2023 Patient Name: [...] Electronically Signed Date/Time: 01/05/2023 5:37 AM EDT [facility] [employer] Radiology Study observation (narrative) [facility] [employer] XR Chest Single viewOrdered By: Jake Vasquez on 01-05-2023 [facility] [employer] Work Phone: Basic metabolic 1998 panelon 01-04-2023 Anion gap [Moles/Vol] 8 mmol/L 3 - 13 mmol/L [facility] [employer] Calcium [Mass/Vol] 8.5 mg/dL 8.4 - 10. 4 mg/dL [facility] [employer] Chloride [Moles/Vol] 100 mmol/L 98 - 10 7 mmol/L [facility] [employer] CO2 [Moles/Vol] 26 mmol/L 22 - 30 mmol/L [facility] [employer] Creatinine [Mass/Vol] 1.11 mg/dL High 0.52 - 1.04 mg/dL [facility] [employer] GFR/1.73 sq M.predicted MDRD (S/P/Bld) [Vol rate/Area] 53.6 mL/min/{1.73_m2} Low - PINF [facility] [employer] Comment on above: Calculation based on the Chronic Kidney Disease Epidemiology Collaboration (CKD-EPI) equation refit without adjustment for race Glucose [Mass/Vol] 97 mg/dL 70 - 100 mg/dL [facility] [employer] Potassium [Moles/Vol] 3.9 mmol/L 3.5 - 5.1 mmol/L [facility] [employer] Sodium [Moles/Vol] 135 mmol/L 135 - 145 mmol/L [facility] [employer] Urea nitrogen [Mass/Vol] 34 mg/dL High 7 - 17 mg/dL [facility] [employer] CBC panel Auto (Bld)Ordered By: Thien Sinha on 01-04-2023 Erythrocyte distribution width (RBC) [Ratio] 16.0 % High 11.5 - 14.5 % [facility] [employer] Hematocrit (Bld) [Volume fraction] 29.0 % Low 35.0 - 47.0 % [facility] [employer] Hemoglobin (Bld) [Mass/Vol] 9.9 g/dL Low 11.7 - 16.0 g/dL [facility] Interpretation and review of laboratory results Abnormal [facility] MCH (RBC) [Entitic mass] 31.9 pg 26.0 - 34.0 pg [facility] MCHC (RBC) [Mass/Vol] 34.1 % 32.0 - 36.0 % [facility] MCV (RBC) [Entitic vol] 93.4 fL 80.0 - 98.0 fL [facility] Platelet mean volume (Bld) [Entitic vol] 9.2 fL 7.4 - 12.4 fL [facility] Platelets (Bld) [#/Vol] 87 10*3/uL Low 140 - 440 10*3/uL [facility] RBC (Bld) [#/Vol] 3.10 10*6/uL Low 3.8 - 5.20 10*6/uL [facility] WBC (Bld) [#/Vol] 7.9 10*3/uL 3.6 - 10.7 10*3/uL [facility] Magnesiumon 01-04-2023 Magnesium [Mass/Vol] 2.6 mg/dL High 1.6 - 2 .3 mg/dL [facility] No Panel Informationon 01-04 Interpretation and review of laboratory results Abnormal [facility] POCT glucose meteron 023 Glucose [Mass/Vol] 116 mg/dL High 70 - 100 mg/dL [facility] Interpretation and review of laboratory results Abnormal [facility] Performed by: [facility], [address] [place] [id number] CLIA ID: [id number] [facility] Glucose [Mass/Vol] 119 mg/dL High 70 - 100 mg/dL [facility] Interpretation and review of laboratory results Abnormal [facility] Performed by: [facility], [address] [place] [id number] CLIA ID: [id number] [facility] Glucose [Mass/Vol] 122 mg/dL High 70 - 100 mg/dL [facility] Interpretation and review of laboratory results Abnormal [facility] Performed by: [email or web address], [address] [place] [id number] CLIA ID: [id number] [facility] Progress Noteon 01-04-2023 Progress Note Cardiothoracic [...] to observe for. Will continue to monitor. [facility] Progress Note Physical Therapy Facility/Department: [facility] Physical Therapy Daily Treatment Note [...] The primary encounter diagnosis was CAD in [place] artery. A diagnosis of Coronary artery disease involving coronary bypass graft, unspecified whether angina present, unspecified whether [place] or transplanted heart was also pertinent to this visit. has a past medical history of CHF (congestive heart failure) (CMS/HCC) ([facility]), Diabetes mellitus (HCC), GERD (gastroesophageal reflux disease), Hyperlipidemia, Hypertension, RA (rheumatoid arthritis) ([facility]), Seizure (HCC), Seizures (HCC), and [...] / Caregiver Present: No Diagnosis: CAD in [place] artery s/p CABG on 01/01 Follows Commands: [...] (Progressing) Start: 01/02/23 (more content not included)... [facility] Progress Note Department of Embalmer/Funeral Director al Medicine Division of Endocrinology, Diabetes, & Metabolism Endocrinology Note Patient Name: Lacy Alvarado : 1950 AGE: 72 y.o. 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 Normal [facility] XR CHEST 1 VIEWon 01-04-2023 XR [...] Electronically Signed Date/Time: 01/04/2023 7:18 AM EDT [facility] XR Chest Single viewon 01-04 No significant change when compared with the previous study. Report Dictated on Electronically Signed By: Dino Jurado MD Electronically Signed Date/Time: 01/04/2023 7:18 AM EDT [facility] Patient Name: LACY SAVAGE : 1950 [...] There are degenerative changes of the spine. [facility] EMERGENCY DEPARTMENT RADIOLOGY SYSTEM Dino Jurado MD - 01/04/2023 Patient Name: [facility]AC[facility] 1950 [id number] Exam Date/Time: 01/04/2023 05:18 Procedure: XR CHEST [...] [facility] Rad[facility] Study observation (narrative) [facility] Basic metabolic 1998 panelon 01-03-2023 Anion gap [Moles/Vol] 7 mmol/L 3 - 13 mmol/L [facility] Calcium [Mass/Vol] 8.5 mg/dL 8.4 - 10. 4 mg/dL [facility] Chloride [Moles/Vol] 103 mmol/L 98 - 10 7 mmol/L [facility] CO2 [Moles/Vol] 25 mmol/L 22 - 30 mmol/L [facility] Creatinine [Mass/Vol] 0.80 mg/dL 0.52 - 1.04 mg/dL [facility] GFR/1.73 sq M.predicted MDRD (S/P/Bld) [Vol rate/Area] 79.4 mL/min/{1.73_m2} - PINF [facility] Comment on above: Calculation based on the Chronic Kidney Disease Epidemiology Collaboration (CKD-EPI) equation refit without adjustment for race Glucose [Mass/Vol] 113 mg/dL High 70 - 100 mg/dL [facility] Interpretation and review of laboratory results Abnormal [facility] Potassium [Moles/Vol] 4.4 mmol/L 3.5 - 5.1 mmol/L [facility] Sodium [Moles/Vol] 136 mmol/L 135 - 145 mmol/L [facility] Urea nitrogen [Mass/Vol] 23 mg/dL High 7 - 17 mg/dL [facility] CBC panel Auto (Bld)Ordered By: Igor Gar on 01-03-2023 Erythrocyte distribution width (RBC) [Ratio] 16.7 % High 11.5 - 14.5 % [facility] Hematocrit (Bld) [Volume fraction] 29.5 % Low 35.0 - 47.0 % [facility] Hemoglobin (Bld) [Mass/Vol] 10.1 g/dL Low 11.7 - 16.0 g/dL [facility] Interpretation and review of laboratory results Abnormal [facility] MCH (RBC) [Entitic mass] 31.8 pg 26.0 - 34.0 pg [facility] MCHC (RBC) [Mass/Vol] 34.1 % 32.0 - 36.0 % [facility] MCV (RBC) [Entitic vol] 93.3 fL 80.0 - 98.0 fL [facility] Platelet mean volume (Bld) [Entitic vol] 9.1 fL 7.4 - 12.4 fL [facility] Platelets (Bld) [#/Vol] 82 10*3/uL Low 140 - 440 10*3/uL [facility] RBC (Bld) [#/Vol] 3.16 10*6/uL Low 3.8 - 5.20 10*6/uL [facility] WBC (Bld) [#/Vol] 8.6 10*3/uL [...] Goal: Assess Nutritional Intake Outcome: Progressing Normal [facility] Magnesiumon 01-03-2023 Magnesium [Mass/Vol] 2.3 mg/dL 1.6 - 2 .3 mg/dL [facility] Magnesium [Mass/Vol]on 01-03 Interpretation and review of laboratory results Normal [facility] No Panel Informationon 01-03 [facility] POCT glucose meteron 023 Glucose [Mass/Vol] 150 mg/dL High 70 - 100 mg/dL [facility] Interpretation and review of laboratory results Abnormal [facility] Performed by: [facility], [address] [place] [id number] CLIA ID: [id number] [facility] Glucose [Mass/Vol] 135 mg/dL High 70 - 100 mg/dL [facility] Interpretation and review of laboratory results Abnormal [facility] Performed by: [facility], [address] [place] [address] CLIA ID: [id number] [facility] Glucose [Mass/Vol] 133 mg/dL High 70 - 100 mg/dL [facility] Interpretation and review of laboratory results Abnormal [facility] Performed by: [facility], [address] [place] [address] CLIA ID: [id number] [facility] PROTIME/INR & PTTon 01-04-20 23 aPTT Coag (PPP) [Time] 31.7 s High 20.0 - 30.5 s [facility] INR Coag (PPP) [Relative time] 1.1 {INR} 0.9 - 1.1 [facility] Comment on above: Recommended Anticoag [...] Interpretation and review of laboratory results Abnormal [facility] PT Coag (Bld) [Time] 11.6 s 9.0 - 12.0 s [facility] Progress Noteon 01-03-2023 Progress Note Department of Embalmer/Funeral Director al Medicine Division of Endocrinology, Diabetes, & Metabolism Endocrinology Note Patient Name: Lacy Alvarado : 1950 AGE: 72 y.o. Room/Bed: T1-103/T1-103 A Admission Date: 01/01/2023 Visit Date: 01/03/2023 Reason for Endocrine Consult: post op heart Provider/Team Requesting Consult: cts PCP: MAYDA GARCIA Outpt Bridge/Structure Inspection Team Leader: No ASSESSMENT: DM 2 with hyperglycemia without [...] Daily magn (more content not included)... Normal [facility] XR CHEST 1 VIEWon 01-03-2023 XR CHEST 1 VIEW Patient Name: LACY SAVAGE : 1950 [facility]#: [id number] Exam Date/Time: 01/03/2023 05:54 Procedure: XR CHEST [...] Signed Date/Time: 01/03/2023 10:[address] [facility] XR Chest Single viewon 01-03 No significant change when compared with the previous study. Report Dictated on Electronically Signed By: Dino Jurado MD Electronically Signed Date/Time: 01/03/2023 10:16 AM EDT [facility] Patient Name: LACY SAVAGE : 1950 Exam [...] There are degenerative changes of the spine. [facility] Dino Jurado MD - 01/03/2023 Patient Name: [...] Electronically Signed Date/Time: 01/03/2023 10:16 AM EDT [facility] Radiology Study observation (narrative) [facility] XR Chest Single viewOrdered By: Dino Jurado on 01-03-2023 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 Normal [facility] Basic metabolic 1998 panelon 01-02-2023 Anion gap [Moles/Vol] 10 mmol/L 3 - 13 mmol/L [facility] Calcium [Mass/Vol] 8.7 mg/dL 8.4 - 10. 4 mg/dL [facility] Chloride [Moles/Vol] 107 mmol/L 98 - 10 7 mmol/L [facility] CO2 [Moles/Vol] 23 mmol/L 22 - 30 mmol/L [facility] Creatinine [Mass/Vol] 0.99 mg/dL 0.52 - 1.04 mg/dL [facility] GFR/1.73 sq M.predicted MDRD (S/P/Bld) [Vol rate/Area] 61.5 mL/min/{1.73_m2} - PINF [facility] Comment on above: Calculation based on the Chronic Kidney Disease Epidemiology Collaboration (CKD-EPI) equation refit without adjustment for race Glucose [Mass/Vol] 104 mg/dL High 70 - 100 mg/dL [facility] Interpretation and review of laboratory results Abnormal [facility] Potassium [Moles/Vol] 4.5 mmol/L 3.5 - 5.1 mmol/L [facility] Sodium [Moles/Vol] 140 mmol/L 135 - 145 mmol/L [facility] Urea nitrogen [Mass/Vol] 20 mg/dL High 7 - 17 mg/dL [facility] Anion gap [Moles/Vol] 13 mmol/L 3 - 13 mmol/L [facility] Calcium [Mass/Vol] 8.3 mg/dL Low 8.4 - 10. 4 mg/dL [facility] Chloride [Moles/Vol] 107 mmol/L 98 - 10 7 mmol/L [facility] [employer] CO2 [Moles/Vol] 21 mmol/L Low 22 - 30 mmol/L [facility] Creatinine [Mass/Vol] 0.86 mg/dL 0.52 - 1.04 mg/dL [facility] GFR/1.73 sq M.predicted MDRD (S/P/Bld) [Vol rate/Area] 72.8 mL/min/{1.73_m2} - PINF [facility] Comment on above: Calculation based on the Chronic Kidney Disease Epidemiology Collaboration (CKD-EPI) equation refit without adjustment for race Glucose [Mass/Vol] 134 mg/dL High 70 - 100 mg/dL [facility] [employer] Interpretation and review of laboratory results Abnormal [facility] [employer] Potassium [Moles/Vol] 4.5 mmol/L 3.5 - 5.1 mmol/L [facility] Sodium [Moles/Vol] 140 mmol/L 135 - 145 mmol/L [facility] [employer] Urea nitrogen [Mass/Vol] 19 mg/dL High 7 - 17 mg/dL [facility] [employer] CARECOORDon 01-02-2023 [facility] Care Managment Initi al Assessment Date: 01/02/2023 Patient Name: Lacy Alvarado : 1950 Patient Information Source of Information: Patient Cognition/Language: WFL - Within Functional Limits Permission given to speak with patient c s s representative/caregiver as indicated: Yes Confirmation of Payer [...] Living Prescription Coverage: Yes Pharmacy Used: [facility] [place] Medication Management: Independent Transportation/Shopping: Assistance Provider Transportation/Shopping [...] home care needs. Delores Mullins RN Normal [facility] CBC panel Auto (Bld)Ordered By: Maurilio Vidal on 01-02-2023 Erythrocyte distribution width (RBC) [Ratio] 16.8 % High 11.5 - 14.5 % [facility] Hematocrit (Bld) [Volume fraction] 25.7 % Low 35.0 - 47.0 % [facility] Hemoglobin (Bld) [Mass/Vol] 8.7 g/dL Low 11.7 - 16.0 g/dL [facility] Interpretation and review of laboratory results Abnormal [facility] MCH (RBC) [Entitic mass] 31.3 pg 26.0 - 34.0 pg [facility] MCHC (RBC) [Mass/Vol] 33.9 % 32.0 - 36.0 % [facility] MCV (RBC) [Entitic vol] 92.4 fL 80.0 - 98.0 fL [facility] Platelet mean volume (Bld) [Entitic vol] 9.0 fL 7.4 - 12.4 fL [facility] Platelets (Bld) [#/Vol] 80 10*3/uL Low 140 - 440 10*3/uL [facility] RBC (Bld) [#/Vol] 2.79 10*6/uL Low 3.8 - 5.20 10*6/uL [facility] WBC (Bld) [#/Vol] 6.1 10*3/uL 3.6 - 10.7 10*3/uL [facility] [employer] [facility] [employer] ECG 12 leadOrdered By: Slava Martins on 01-02-2023 Heart rate 95 /min bpm [facility] [employer] Work Phone: P Spring 53 degrees [facility] [employer] Work Phone: WI Interval 183 ms [facility] [employer] Work Phone: QRS Spring 20 degrees [facility] [employer] Work Phone: QRSD Interval 86 ms [facility] [employer] Work Phone: QT Interval 380 ms [facility] [employer] Work Phone: QTC Interval 480 ms [facility] [employer] Work Phone: T Wave Spring 27 degrees [facility] [employer] Work Phone: [facility] [employer] Work Phone: ECG 12 leadon 01-02-2023 Sinus rhythm Electronically Signed On 01-02-2023 9:42:47 EDT by Michelle Stanley MD - 01/02/2023 IMPRESSION: Sinus rhythm Electronically Signed On 01-02-2023 9:42:47 EDT by Jarredclarissa [facility] [employer] Heart rate 102 /min bpm [facility] [employer] P Spring 56 degrees [facility] [employer] [place] Interval 147 ms [facility] [employer] QRS Spring 6 degrees [facility] QRSD Interval 70 ms [facility] QT Interval 332 ms [facility] QTC Interval 433 ms [facility] T Wave Spring 29 degrees [facility] Sinus tachycardia Probable left atrial enlargement Minimal ST elevation, inferior leads Electronically Signed On 01-02-2023 8:55:59 EDT by Michelle Stanley MD - 01/02/2023 IMPRESSION: Sinus tachycardia Probable left atrial enlargement Minimal ST elevation, inferior leads Electronically Signed On 01-02-2023 8:55:59 EDT by [facility] ECG 12-LEADon 01-02-2023 ECG 12-LEAD IMPRESSION: Sinus rhythm Electronically Signed On 01-02-2023 9:42:[address] [facility] 12-LEAD IMPRESSION: Sinus tachycardia Probable left atrial enlargement Minimal ST elevation, inferior leads Electronically Signed On 01-02-2023 8:55:[address] [facility] Magnesiumon 01-02-2023 Magnesium [Mass/Vol] 2.3 mg/dL 1.6 - 2 .3 mg/dL [facility] Magnesium [Mass/Vol]on 01-02 Interpretation and review of laboratory results Normal [facility] [employer] No Panel Informationon 01-02 [facility] POCT glucose meteron 023 Glucose [Mass/Vol] 116 mg/dL High 70 - 100 mg/dL [facility] Interpretation and review of laboratory results Abnormal [facility] Performed by: [facility], [address] [place] [address] CLIA ID: [id number] [facility] Glucose [Mass/Vol] 121 mg/dL High 70 - 100 mg/dL [facility] Interpretation and review of laboratory results Abnormal [facility] Performed by: [facility], [address] [place] [id number] CLIA ID: [id number] [facility] Glucose [Mass/Vol] 121 mg/dL High 70 - 100 mg/dL [facility] Interpretation and review of laboratory results Abnormal [facility] Performed by: [facility], [address] [place] [address] CLIA ID: [id number] [facility] Glucose [Mass/Vol] 132 mg/dL High 70 - 100 mg/dL [facility] Interpretation and review of laboratory results Abnormal [facility] Performed by: [facility], [address] [place] [address] CLIA ID: [id number] [facility] Glucose [Mass/Vol] 132 mg/dL High 70 - 100 mg/dL [facility] Interpretation and review of laboratory results Abnormal [facility] Performed by: [facility] Roberta [facility], [address] [place] [id number] CLIA ID: [id number] [facility] Glucose [Mass/Vol] 120 mg/dL High 70 - 100 mg/dL [facility] Health Interpretation and review of laboratory results Abnormal [facility] Health Performed by: [facility], [address] [place] [id number] CLIA ID: [id number] [facility] Health [facility] Glucose [Mass/Vol] 145 mg/dL High 70 - 100 mg/dL [facility] Health Interpretation and review of laboratory results Abnormal [facility] Performed by: [facility], [address] [place] [address] CLIA ID: [id number] [facility] Glucose [Mass/Vol] 136 mg/dL High 70 - 100 mg/dL [facility] Interpretation and review of laboratory results Abnormal [facility] Performed by: [facility], [address] [place] [id number] CLIA ID: [id number] [facility] Glucose [Mass/Vol] 118 mg/dL High 70 - 100 mg/dL [facility] Interpretation and review of laboratory results Abnormal [facility] Performed by: [facility], [address] [place] [address] CLIA ID: [id number] [facility] Glucose [Mass/Vol] 144 mg/dL High 70 - 100 mg/dL [facility] Interpretation and review of laboratory results Abnormal [facility] Performed by: [facility], [address] [place] [id number] CLIA ID: [id number] [facility] Glucose [Mass/Vol] 153 mg/dL High 70 - 100 mg/dL [facility] Interpretation and review of laboratory results Abnormal [facility] Performed by: [facility], [address] [place] [address] CLIA ID: [id number] [facility] Health [facility] Health PROTIME/INR & PTTon 01-03-20 23 aPTT Coag (PPP) [Time] 30.9 s High 20.0 - 30.5 s [facility] INR Coag (PPP) [Relative time] 1.1 {INR} 0.9 - 1.1 [facility] Comment on above: Recommended Anticoag [...] Interpretation and review of laboratory results Abnormal [facility] PT Coag (Bld) [Time] 11.9 s 9.0 - 12.0 s [facility] Progress Noteon 01-02-2023 Progress Note Physical Therapy Facility/Department: [facility] Physical Therapy Initial Evaluation NAME: Lacy Alvarado [...] The primary encounter diagnosis was CAD in [place] artery. A diagnosis of Coronary artery disease involving coronary bypass graft, unspecified whether angina present, unspecified whether [place] or transplanted heart was also pertinent to this visit. has a past medical history of CHF (congestive heart failure) (CMS/HCC) ([facility]), Diabetes mellitus ([facility]), GERD (gastroesophageal reflux disease), Hyperlipidemia, Hypertension, RA (rheumatoid arthritis) ([facility]), Seizure ([facility]), Seizures ([facility]), and Sleep apnea. has a [...] / Caregiver Present: No Diagnosis: CAD in [place] artery s/p CABG on 01/01 Follows Commands: [...] with min (more content not included)... Normal [facility] Progress Note ---- -------- Attestation [...] Alvarado : 1950 AGE: 72 y.o. 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 Normal [facility] Progress Note ---- -------- Attestation [...] Milian. Patient was admitted on 12/18/[facility] to [facility] with CP history of CHF, CAD, DM [...] thrombocytopenia. Re (more content not included)... Normal [facility] XR CHEST 1 VIEWon 01-02-2023 [...] Electronically Signed Date/Time: 01/02/2023 9:48 AM EDT [facility] XR Chest Single viewon 01-02 Lines, [...] Electronically Signed Date/Time: 01/02/2023 9:48 AM EDT [facility] Patient Name: LACY SAVAGE : 1950 [...] 01/02/2023 Patient Name: LACY ALVARADO : 1950 [facility]#: [id number] Exam Date/Time: 01/02/2023 05:15 Procedure: XR CHEST [...] Electronically Signed Date/Time: 01/02/2023 9:48 AM EDT [facility] Radiology Study observation (narrative) [facility] [employer] XR Chest Single viewOrdered By: Johan Ervin on 01-02-2023 [facility] [employer] Work Phone: Basic metabolic 1998 panelon 01-01-2023 Anion gap [Moles/Vol] 10 mmol/L 3 - 13 mmol/L [facility] [employer] Calcium [Mass/Vol] 9.0 mg/dL 8.4 - 10. 4 mg/dL [facility] [employer] Chloride [Moles/Vol] 110 mmol/L High 98 - 10 7 mmol/L [facility] [employer] CO2 [Moles/Vol] 20 mmol/L Low 22 - 30 mmol/L [facility] Creatinine [Mass/Vol] 0.77 mg/dL 0.52 - 1.04 mg/dL [facility] GFR/1.73 sq M.predicted MDRD (S/P/Bld) [Vol rate/Area] 83.1 mL/min/{1.73_m2} - PINF [facility] Comment on above: Calculation based on the Chronic Kidney Disease Epidemiology Collaboration (CKD-EPI) equation refit without adjustment for race Glucose [Mass/Vol] 124 mg/dL High 70 - 100 mg/dL [facility] Potassium [Moles/Vol] 3.6 mmol/L 3.5 - 5.1 mmol/L [facility] Sodium [Moles/Vol] 140 mmol/L 135 - 145 mmol/L [facility] Urea nitrogen [Mass/Vol] 21 mg/dL High 7 - 17 mg/dL [facility] Blood gas, arterialOrdered B y: Arthur Lisa on 01-01-2023 Base excess Calc (Bld) [Moles/Vol] -3.3000 mmol/L Low -3.0 - 3.0 mmol/L [facility] CO2 (Bld) [Partial pressure] 30.7 mm[Hg] Low - PINF [facility] CO2 [Moles/Vol] 21.4 mmol/L Low 23.0 - 27.0 mmol/L [facility] HCO3 (Bld) [Moles/Vol] 20.4 mmol/L Low 21.0 - 25.0 mmol/L [facility] Hemoglobin (Bld) [Mass/Vol] 7.1 g/dL Screen Only [facility] Interpretation and review of laboratory results Abnormal [facility] Oxygen (Bld) [Partial pressure] 243.2 mm[Hg] High [facility] pH (Bld) 7.441 [pH] 7.350 - 7.450 [facility] Source Of Oxygen Vent [facility] CBC panel Auto (Bld)on 01-01 Erythrocyte distribution width (RBC) [Ratio] 14.2 % 11.5 - 14.5 % [facility] Hematocrit (Bld) [Volume fraction] 20.0 % Low 35.0 - 47.0 % [facility] Hemoglobin (Bld) [Mass/Vol] 6.9 g/dL Critically low 11.7 - 16.0 g/dL [facility] Interpretation and review of laboratory results Abnormal [facility] MCH (RBC) [Entitic mass] 33.1 pg 26.0 - 34.0 pg [facility] MCHC (RBC) [Mass/Vol] 34.3 % 32.0 - 36.0 % [facility] MCV (RBC) [Entitic vol] 96.7 fL 80.0 - 98.0 fL [facility] Platelet mean volume (Bld) [Entitic vol] 8.7 fL 7.4 - 12.4 fL [facility] Platelets (Bld) [#/Vol] 79 10*3/uL Low 140 - 440 10*3/uL [facility] RBC (Bld) [#/Vol] 2.07 10*6/uL Low 3.8 - 5.20 10*6/uL [facility] WBC (Bld) [#/Vol] 9.0 10*3/uL 3.6 - 10.7 10*3/uL [facility] Health Repeated [facility] CBC panel Auto (Bld)Ordered By: Sadie Jackson on 01-01-2023 Erythrocyte distribution width (RBC) [Ratio] 14.3 % 11.5 - 14.5 % [facility] Hematocrit (Bld) [Volume fraction] 21.4 % Low 35.0 - 47.0 % [facility] Hemoglobin (Bld) [Mass/Vol] 7.2 g/dL Low 11.7 - 16.0 g/dL [facility] Interpretation and review of laboratory results Abnormal [facility] MCH (RBC) [Entitic mass] 32.7 pg 26.0 - 34.0 pg [facility] MCHC (RBC) [Mass/Vol] 33.7 % 32.0 - 36.0 % [facility] MCV (RBC) [Entitic vol] 97.2 fL 80.0 - 98.0 fL [facility] Platelet mean volume (Bld) [Entitic vol] 9.0 fL 7.4 - 12.4 fL [facility] Platelets (Bld) [#/Vol] 78 10*3/uL Low 140 - 440 10*3/uL [facility] Comment on above: This result was prev iously suppressed from the chart. RBC (Bld) [#/Vol] 2.20 10*6/uL Low 3.8 - 5.20 10*6/uL [facility] WBC (Bld) [#/Vol] 7.1 10*3/uL 3.6 - 10.7 10*3/uL [facility] Calcium.ionized [Moles/Vol]o n 01-01-2023 Calcium.ionized (Bld) [Moles/Vol] 4.80 mg/dL 4.30 - 5.20 mg/dL [facility] Interpretation and review of laboratory results Normal [facility] PH, IONIZED CALCIUM 7.46 7.31 - 7.46 [facility] Consulton 01-01-2023 Consult ---- -------- Attestation signed [...] Alvarado : 1950 AGE: 72 y.o. Room[facility]: [facility] A Admission Date: 01/01/2023 Visit Date: 01/01/2023 Reason for Endocrine Consult: post op heart Provider/Team Requesting Consult: cts PCP: MAYDA GARCIA Outpt Bridge/Structure Inspection Team Leader: No ASSESSMENT: Cad s/p Cabgx4 Dm2 with [...] times dana (more content not included)... Normal [facility] Consult ---- -------- Attestation signed by Carlos Chavarria DO at 01/01/2023 2:48 PM I have personally performed a [id number] diagnostic evaluation on this patient on date of service 01/01/23 . History, labs, imaging studies, and electronic medical record have been reviewed by me. This note documented by the []mix house tender [x]SONYA reflects my history, exam, and medical [...] leak in CTs No Pacer wires -------- [facility]: Critical Care Consultation Note Date: 01/01/23 PATIENT NAME: Lacy Alvarado : 1950 (72 y.o.) Reason for Consult: Critical Care & Vent Management HPI: Lacy Alvarado is a 72 y.o. female was referred to us by Dr. Bhanu Milian. Patient was admitted on 12/18/22 to [facility] with CP history of CHF, CAD, DM [...] on 01/01/2023 12/24/22 Kassy Tabares APRN - [employer]PER[employer] traMADol (Ultram) 50 MG tablet Take 50 mg by mouth. 11/28/21 Historical Provider, Surgery Hand Off: Arrival Time in [facility]: 1115 Complications/Pertinent Events: Last Paralytic: Medications given in route: Gtts OR report Propofol: 50 Insulin: 1 Amicar: 29 Current gtts upon arrival Propofol:50 Insulin: 1 Amicar: 29 Devices (more content not included)... Normal [facility] FibrinogenOrdered By: Stephania dunlap on 01-01-2023 Fibrinogen Coag (PPP) [Mass/Vol] 149 mg/dL Low 200 - 400 mg/dL [facility] Fibrinogen Coag (PPP) [Mass/ Vol]Ordered By: Stephania Cummings on 01-01-2023 Interpretation and review of laboratory results Abnormal [facility] Hemoglobin (Bld) [Mass/Vol]O rdered By: Lety Decker on 01-01-2023 Hematocrit (Bld) [Volume fraction] 26.8 % Low 35.0 - 47.0 % [facility] Interpretation and review of laboratory results Abnormal [facility] Hemoglobin and hematocrit, b loodOrdered By: Lety Decker on 01-01-2023 Hemoglobin (Bld) [Mass/Vol] 9.1 g/dL Low 11.7 - 16.0 g/dL [facility] Magnesiumon 01-01-2023 Magnesium [Mass/Vol] 3.4 mg/dL High 1.6 - 2 .3 mg/dL [facility] No Panel Informationon 01-01 Blood Expiration Date [id number] S [facility] Crossmatch interpretation COMP [facility] Dispense Status Transfused [facility] [employer] Product Blood Type 5100 [facility] PRODUCT CODE [id number] [facility] Unit ABO O [facility] Unit RH Positive [facility] Unit Volume 300 mL [facility] Interpretation and review of laboratory results Abnormal [facility] POCT glucose meteron 023 Glucose [Mass/Vol] 141 mg/dL High 70 - 100 mg/dL [facility] Interpretation and review of laboratory results Abnormal [facility] Performed by: [facility], [address] [place] [address] CLIA ID: [id number] [facility] Health [facility] Glucose [Mass/Vol] 148 mg/dL High 70 - 100 mg/dL [facility] Interpretation and review of laboratory results Abnormal [facility] Performed by: [facility], [address] [place] [address] CLIA ID: [id number] [facility] Health [facility] Glucose [Mass/Vol] 138 mg/dL High 70 - 100 mg/dL [facility] Interpretation and review of laboratory results Abnormal [facility] Performed by: [facility], [address] [place] [address] CLIA ID: [id number] [facility] Health [facility] Glucose [Mass/Vol] 121 mg/dL High 70 - 100 mg/dL [facility] Interpretation and review of laboratory results Abnormal [facility] Performed by: [facility] [email or web address] Lab, [address] [place] [address] CLIA ID: [id number] [facility] Health [facility] Glucose [Mass/Vol] 142 mg/dL High 70 - 100 mg/dL [facility] Interpretation and review of laboratory results Abnormal [facility] Performed by: [facility], [address] [place] [address] CLIA ID: [id number] [facility] Health [facility] Glucose [Mass/Vol] 133 mg/dL High 70 - 100 mg/dL [facility] Interpretation and review of laboratory results Abnormal [facility] Performed by: [facility], [address] [place] [address] CLIA ID: [id number] [facility] Glucose [Mass/Vol] 152 mg/dL High 70 - 100 mg/dL [facility] Interpretation and review of laboratory results Abnormal [facility] Performed by: [facility], [address] [place] [address] CLIA ID: [id number] [facility] Glucose [Mass/Vol] 170 mg/dL High 70 - 100 mg/dL [facility] Interpretation and review of laboratory results Abnormal [facility] Performed by: [facility], [address] [place] [address] CLIA ID: [id number] [facility] Glucose [Mass/Vol] 120 mg/dL High 70 - 100 mg/dL [facility] Interpretation and review of laboratory results Abnormal [facility] Performed by: [facility], [address] [place] [address] CLIA ID: [id number] [facility] Glucose [Mass/Vol] 84 mg/dL 70 - 100 mg/dL [facility] Interpretation and review of laboratory results Normal [facility] Performed by: [facility], [address] [place] [address] CLIA ID: [id number] [facility] Glucose [Mass/Vol] 82 mg/dL 70 - 100 mg/dL [facility] Interpretation and review of laboratory results Normal [facility] Performed by: [facility], [address] [place] [address] CLIA ID: [id number] [facility] Health [facility] Glucose [Mass/Vol] 101 mg/dL High 70 - 100 mg/dL [facility] Interpretation and review of laboratory results Abnormal [facility] Performed by: [facility] Lab, [address] [place] [address] CLIA ID: [id number] [facility] Glucose [Mass/Vol] 125 mg/dL High 70 - 100 mg/dL [facility] Interpretation and review of laboratory results Abnormal [facility] Performed by: [facility] Lab, [address] [place] [address] CLIA ID: [id number] [facility] Health [facility] PROTIME/INR & PTTon 01-02-20 aPTT Coag (PPP) [Time] 24.2 s 20.0 - 30.5 s [facility] [employer] INR Coag (PPP) [Relative time] 1.3 {INR} High 0.9 - 1.1 [facility] Comment on above: Recommended Anticoag [...] Interpretation and review of laboratory results Abnormal [facility] [employer] PT Coag (Bld) [Time] 14.0 s High 9.0 - 12.0 s [facility] [employer] Phosphate [Moles/Vol]on 12-04 Interpretation and review of laboratory results Normal [facility] [employer] Phosphate [Mass/Vol] 3.7 mg/dL 2.5 - 4 .5 mg/dL [facility] [employer] Prepare RBC: 2 Unitson 01-01 Unit Number [id number] [facility] [employer] Unit Number [id number] [facility] US Heart Transesophagealon 0 01-01-2023 Left Ventricle: [...] Additional Conclusions No significant valvular abnormalities. CV [facility] [employer] XR CHEST 1 VIEWon 01-01-2023 XR CHEST 1 VIEW [facility] Name[facility] 1950 [id number] Exam Date/Time: 01/01/2023 13:18 Procedure: XR CHEST [...] Signed Date/Time: 01/01/2023 1:[address] [facility] XR Chest Single viewon 01-01 1. Status post thora cic surgery (CABG). 2. Line and tube placements as described. 3. Pulmonary vascular congestion without evidence of other acute cardiopulmonary process. Report Dictated on Electronically Signed By: Gómez Calvert MD Electronically Signed Date/Time: 01/01/2023 1:55 PM EDT [facility] Patient Name: LACY SAVAGE : 1950 [...] heart failure, infiltrate or pneumothorax is seen. [facility] Gómez Calvert MD - 01/01/2023 Patient Name: [...] Electronically Signed Date/Time: 01/01/2023 1:55 PM EDT [facility] Radiology Study observation (narrative) [facility] [employer] XR Chest Single viewOrdered By: Gómez Calvert on 01-01-2023 [employer] Work Phone: ECG 12-LEADon 12-30-2022 ECG 12-LEAD IMPRESSION: Sinus rhythm Probable left atrial enlargement Electronically Signed On 12-30-2022 8:43:39 EDT by Chris Kenny [facility] [employer] System [facility] XR CHEST 2 VIEWSon 3 XR CHEST [...] Electronically Signed Date/Time: 12/30/2022 11:52 AM EDT [facility] PREPROCINSon 12-29-2022 PREPROCINS Medication List Accurate [...] have specific questions, please call your surgeon. KITCHEN STEWARD/STEWARDESS ENTER BUILDING AT THE MAIN ENTRANCE. TAKE THE H ELEVATOR TO THE FIRST FLOOR, TURN LEFT OFF THE ELEVATOR AND GO TO THE SAME DAY SURGERY REGISTRATION DESK TO CHECK IN [facility] 36on 12-26-2022 36 Pre op teaching done with patient. Instructed to hold NSAIDS except Aspirin 7 days prior to surgery, hold Plavix 7 days prior to surgery, and not to take any medications day of surgery. Pharmacy confirmed. All questions answered. [facility] 36on 12-24-2022 36 Called spoke with patient, all questions answered [facility] 36 Surg proc orders michael patience, medications e-scribed - talked to patient, answered all questions. [facility] 36on 12-23-2022 36 Patient is scheduled for CABG on 01/01. Patient lives on the third floor and asking if she is able to climb all those stairs right after surgery? Please advise [phone] [facility] Office Visiton 12-23-2022 Follow-up visit [id number] Villagomez 1950 F Date Provider Department Center 12/23/2022 [id number] ROSE [facility] None No family history on file Level of Service:19652 [place] OFFICE/OUTPATIENT NEW [facility] 60-74 MINUTES Reason for Visit and Comments: New Patient [542] [facility] Progress Noteon 12-23-2022 Progress Note [facility] SURGERY [address] [facility] [address] Dept: [phone] Dept Loc: [phone] Visit type: New Reason for Visit: Multivessel [...] Milian. Patient was admitted on 12/18/22 to [facility] with CP. Per notes, patient has a [...] CT Abdomen (more content not included)... Normal [facility] Glucose Glucometer (BldC) [M ass/Vol]Ordered By: Edwin Kaplan on 12-19-2022 Glucose [Mass/Vol] 101 mg/dL 74-106 [facility] Comment on above: MANAGEMENT OF PATIEN T CARE PER NURSING PROTOCOL Absolute lymphocyte countOrd ered By: Turner Armendariz on 12-18-2022 Lymphocytes Auto (Unsp spec) [#/Vol] 2.22 10*3/uL 0.83-4.51 [facility] Basophil percentageOrdered B y: Turner Armendariz on 12-18-2022 Basophil percentage 144 mg/dL 74-106 [facility] Basophil percentage 141 mmol/L 136-145 [facility] Basophil percentage 4.0 mmol/L 3.5-5.1 [facility] Basophil percentage 108 mmol/L 98-107 [facility] Basophils (Bld) [#/Vol] 4.9 10*3/uL 4.4-11.0 [facility] Basophils (Bld) [#/Vol] 2.2 10*3/uL 2.0-7.7 [facility] Basophils/100 WBC (Bld) 0.4 % 0-1 [facility] Basophils/100 WBC (Bld) 43.9 % 47-70 [facility] Basophils/100 WBC (Bld) 2.4 % 0-5 [facility] Chloride [Moles/Vol] 108 mmol/L 98-107 [facility] Eosinophils/100 WBC (Bld) 2.4 % 0-5 [facility] Glucose [Mass/Vol] 144 mg/dL 74-106 [facility] Comment on above: Fasting Glucose resu lt greater than or equal to 126 mg/dL suggests DIABETES MELLITUS per A.D.A. criteria. Neutrophils (Bld) [#/Vol] 2.2 10*3/uL 2.0-7.7 [facility] Neutrophils/100 WBC (Bld) 43.9 % 47-70 [facility] Potassium [Moles/Vol] 4.0 mmol/L 3.5-5.[address] [facility] Sodium [Moles/Vol] 141 mmol/L 136-145 [facility] WBC (Bld) [#/Vol] 4.9 10*3/uL 4.4-11.0 [facility] Blood erythrocytes count (nu mber/volume)Ordered By: Turner Armendariz on 12-18-2022 RBC (Bld) [#/Vol] 3.32 10*6/uL 4.2-5.4 [facility] Blood hemoglobin measurement (mass/volume)Ordered By: Turner Armendariz on 12-18-2022 Hemoglobin (Bld) [Mass/Vol] 10.8 g/dL 12.0-15.0 [facility] Blood lymphocytes/100 leukoc ytesOrdered By: Turner Armendariz on 12-18-2022 Lymphocytes/100 WBC (Bld) 45.0 % 19-41 [facility] Blood monocytes/100 leukocyt esOrdered By: Turner Armendariz on 12-18-2022 Monocytes/100 WBC (Bld) 8.1 % 0-10 [facility] Blood platelet mean volumeOr dered By: Turner Armendariz on 12-18-2022 Platelet mean volume (Bld) [Entitic vol] 10.7 fL 6.2-12.0 [facility] Determination of erythrocyte mean corpuscular volume (MCV)Ordered By: Turner Armendariz on 12-18-2022 MCV (RBC) [Entitic vol] 99.1 fL 81-99 [facility] Hematocrit Auto (Bld) [Volum e fraction]Ordered By: Turner Armendariz on 12-18-2022 Hematocrit (Bld) [Volume fraction] 32.9 % 37-47 [facility] INR in Blood by Coagulation assayOrdered By: Jossue Boyd on 12-18-2022 INR Coag (Bld) [Relative time] 1.0 {INR} [facility] Laboratory - Chemistry and C hemistry - challengeOrdered By: Turner Armendariz on 12-18-2022 CO2 [Moles/Vol] 29.0 mmol/L 21.0-32.0 [facility] Urea nitrogen/Creatinine [Mass ratio] 27.6 mg/mg 10-20 [facility] Laboratory - CoagulationOrde red By: Jossue Boyd on 12-18-2022 aPTT Coag (Bld) [Time] 27.4 s 24.1-36.2 [facility] PT Coag (PPP) [Time] 12.8 s 11.7-14.9 [facility] Laboratory - Hematology and Cell countsOrdered By: Turner Armendariz on 12-18-2022 Erythrocyte distribution width (RBC) [Entitic vol] 50.8 fL 35.1-43.9 [facility] Erythrocyte distribution width (RBC) [Ratio] 13.9 % 11.6-14.6 [facility] Immature granulocytes/100 WBC (Bld) 0.200 % 0.0-0.9 [facility] Comment on above: IG% - Immature Granu locytes (promyelocytes, myelocytes and metamyelocytes) > 1% indicates that a LEFT SHIFT is Present. MCH (RBC) [Entitic mass] 32.5 pg 27.0-32.0 [facility] Nucleated RBC/100 WBC (Bld) [Ratio] 0 % 0-5 [facility] MCHC Auto (RBC) [Mass/Vol]Or dered By: Turner Armendariz on 12-18-2022 MCHC (RBC) [Mass/Vol] 32.8 g/dL 32-[address] [facility] No Panel InformationOrdered By: Edwin Kaplan on 12-18-2022 Troponin I High Sensitivity 5 pg/mL 3.0-54.0 [facility] Comment on above: Please Note: New Gina t Units and Gender Specific Reference Ranges. For more information see Policy Stat Procedure Stephenson High Sensitivity Troponin (TNIH) and attachments. 5 pg/mL 3.0-54.0 [facility] No Panel InformationOrdered By: Turner Armendariz on 12-18-2022 Troponin I High Sensitivity 5 pg/mL 3.0-54.0 [facility] Comment on above: Please Note: New Gina t Units and Gender Specific Reference Ranges. For more information see Policy Stat Procedure Stephenson High Sensitivity Troponin (TNIH) and attachments. D-Dimer Quantitative (PE/DVT) 0.31 FEU/ug/m 0.27-0.49 [facility] Comment on above: NORMAL D-Dimer level (<0.50) indicates no DVT or PE. Estimated Creatinine Clearance Calc 71.34 ml/min [facility] Estimated GFR (MDRD) Amer 79 mL/min >60 [facility] Comment on above: GFR Calc Estimated GFR (MDRD) Non-Af Amer 65 mL/min >60 [facility] Comment on above: Non- GFR Calc 32.5 pg 27.0-32.0 [facility] 13.9 % 11.6-14.6 [facility] 50.8 fl 35.1-43.9 [facility] 0.200 % 0.0-0.9 [facility] 0 % 0-5 [facility] 0.31 FEU/ug/m 0.27-0.49 [facility] 65 mL/min >60 [facility] 79 mL/min >60 [facility] 71.34 ml/min [facility] 27.6 RATIO 10-20 [facility] 29.0 mmol/L 21.0-32.0 [facility] No Panel InformationOrdered By: Jossue Boyd on 12-18-2022 12.8 SECONDS 11.7-14.9 [facility] 27.4 Seconds 24.1-36.2 [facility] Platelets bldOrdered By: Rem us Ungdavid on 12-18-2022 Platelets (Bld) [#/Vol] 183 10*3/uL 150-450 [facility] Serum or plasma calcium loretta urement (mass/volume)Ordered By: Remus Ungur on 12-18-2022 Calcium [Mass/Vol] 8.5 mg/dL 8.5-10.1 [facility] Serum or plasma creatinine m easurement (mass/volume)Ordered By: Remus Ungur on 12-18-2022 Creatinine [Mass/Vol] 0.90 mg/dL 0.55-1.[address] [facility] Comment on above: The validity of the calculated GFR & GFRAA in patients over 70 years has not been determined. Clinical correlation is essential. Serum or plasma urea nitroge n measurement (mass/volume)Ordered By: Turner Armendariz on 12-18-2022 Urea nitrogen [Mass/Vol] 25 mg/dL 7-18 [facility] Thin prep Papanicolaou smear with manual screeningOrdered By: Turner Armendariz on 12-18-2022 Thin prep Papanicolaou smear with manual screening 4 5-15 [facility] Laboratory - Hematology and Cell countson 12-11-2022 HbA1c (Bld) [Mass fraction] 6.6 % 4.2-6.3 [facility] No Panel Informationon 12-11 6.6 % 4.2-6.3 [facility] Basophil percentageOrdered B y: Dr. Garcia on 10-01-2022 Chloride [Moles/Vol] 113 mmol/L 98-107 [facility] Glucose [Mass/Vol] 114 mg/dL 74-106 [facility] Comment on above: Fasting Glucose resu lt from 100 to 125 mg/dL suggests IMPAIRED HOMEOSTASIS per A.D.A. criteria. Potassium [Moles/Vol] 3.8 mmol/L 3.5-5.[address] [facility] Sodium [Moles/Vol] 144 mmol/L 136-145 [facility] Laboratory - Chemistry and C hemistry - challengeOrdered By: Dr. Garcia on 10-01-2022 CO2 [Moles/Vol] 25.0 mmol/L 21.0-32.0 [facility] Urea nitrogen/Creatinine [Mass ratio] 26.3 mg/mg 10-20 [facility] No Panel InformationOrdered By: Dr. Garcia on 10-01-2022 Estimated GFR (MDRD) Amer 92 mL/min >60 [facility] Comment on above: GFR Calc Estimated GFR (MDRD) Non-Af Amer 76 mL/min >60 [facility] Comment on above: Non- GFR Calc Valproic Acid (Depakene) Level 36 ug/mL 50-100 [facility] Serum or plasma calcium loretta urement (mass/volume)Ordered By: Dr. Garcia on 10-01-2022 Calcium [Mass/Vol] 8.6 mg/dL 8.5-10.1 [facility] Serum or plasma creatinine m easurement (mass/volume)Ordered By: Dr. Garcia on 10-01-2022 Creatinine [Mass/Vol] 0.80 mg/dL 0.55-1.[address] [facility] Comment on above: The validity of the calculated GFR & GFRAA in patients over 70 years has not been determined. Clinical correlation is essential. Serum or plasma urea nitroge n measurement (mass/volume)Ordered By: Dr. Garcia on 10-01-2022 Urea nitrogen [Mass/Vol] 21 mg/dL 7-18 [facility] Thin prep Papanicolaou smear with manual screeningOrdered By: Dr. Garcia on 10-01-2022 Thin prep Papanicolaou smear with manual screening 6 5-15 [facility] Whole blood hemoglobin A1c/t otal hemoglobin ratio (mass fraction)Ordered By: Dr. Garcia on 10-01-2022 HbA1c (Bld) [Mass fraction] 7.0 % 3.8-5.6 [facility] Comment on above: Normal < 5.7 % Predi abetic 5.7 - 6.4 % Diabetic >or= 6.5 % Please note range changes. Absolute lymphocyte countOrd ered By: Dr. Freeman on 08-13-2022 Lymphocytes Auto (Unsp spec) [#/Vol] 2.73 10*3/uL 0.83-4.51 [facility] Basophil percentageOrdered B y: Dr. Freeman on 08-13-2022 Basophils/100 WBC (Bld) 0.6 % 0-1 [facility] Bilirubin [Mass/Vol] 0.20 mg/dL 0.20-1.00 [facility] Comment on above: For patients on eltr ombopag therapy, use of Dimension Stephenson TBIL is not recommended. Chloride [Moles/Vol] 114 mmol/L 98-107 [facility] Eosinophils/100 WBC (Bld) 2.1 % 0-5 [facility] Glucose [Mass/Vol] 143 mg/dL 74-106 [facility] Comment on above: Fasting Glucose resu lt greater than or equal to 126 mg/dL suggests DIABETES MELLITUS per A.D.A. criteria. Neutrophils (Bld) [#/Vol] 2.8 10*3/uL 2.0-7.7 [facility] Neutrophils/100 WBC (Bld) 45.6 % 47-70 [facility] Potassium [Moles/Vol] 3.7 mmol/L 3.5-5.[address] [facility] Protein [Mass/Vol] 7.6 g/dL 6.4-8.2 [facility] Sodium [Moles/Vol] 140 mmol/L 136-145 [facility] WBC (Bld) [#/Vol] 6.2 10*3/uL 4.4-11.0 [facility] Blood erythrocytes count (nu mber/volume)Ordered By: Dr. Freeman on 08-13-2022 RBC (Bld) [#/Vol] 4.08 10*6/uL 4.2-5.4 [facility] Blood hemoglobin measurement (mass/volume)Ordered By: Dr. Freeman on 08-13-2022 Hemoglobin (Bld) [Mass/Vol] 12.8 g/dL 12.0-15.0 [facility] Blood lymphocytes/100 leukoc ytesOrdered By: Dr. Fremean on 08-13-2022 Lymphocytes/100 WBC (Bld) 44.1 % 19-41 [facility] Blood monocytes/100 leukocyt esOrdered By: Dr. Freeman on 08-13-2022 Monocytes/100 WBC (Bld) 7.4 % 0-10 [facility] Blood platelet mean volumeOr dered By: Dr. Freeman on 08-13-2022 Platelet mean volume (Bld) [Entitic vol] 10.6 fL 6.2-12.0 [facility] Determination of erythrocyte mean corpuscular volume (MCV)Ordered By: Dr. Freeman on 08-13-2022 MCV (RBC) [Entitic vol] 99.3 fL 81-99 [facility] Hematocrit Auto (Bld) [Volum e fraction]Ordered By: Dr. Freeman on 08-13-2022 Hematocrit (Bld) [Volume fraction] 40.5 % 37-47 [facility] Laboratory - Chemistry and C hemistry - challengeOrdered By: Dr. Freeman on 08-13-2022 ALP [Catalytic activity/Vol] 103 U/L 45-117 [facility] ALT [Catalytic activity/Vol] 32 U/L 13-56 [facility] CO2 [Moles/Vol] 22.0 mmol/L 21.0-32.0 [facility] Globulin (S) [Mass/Vol] 4.0 g/dL 2.2-4.2 [facility] Urea nitrogen/Creatinine [Mass ratio] 18.8 mg/mg 10-20 [facility] Laboratory - Hematology and Cell countsOrdered By: Dr. Freeman on 08-13-2022 Erythrocyte distribution width (RBC) [Entitic vol] 49.6 fL 35.1-43.9 [facility] Erythrocyte distribution width (RBC) [Ratio] 13.5 % 11.6-14.6 [facility] Immature granulocytes/100 WBC (Bld) 0.200 % 0.0-0.9 [facility] Comment on above: IG% - Immature Granu locytes (promyelocytes, myelocytes and metamyelocytes) > 1% indicates that a LEFT SHIFT is Present. MCH (RBC) [Entitic mass] 31.4 pg 27.0-32.0 [facility] Nucleated RBC/100 WBC (Bld) [Ratio] 0 % 0-5 [facility] MCHC Auto (RBC) [Mass/Vol]Or dered By: Dr. Freeman on 08-13-2022 MCHC (RBC) [Mass/Vol] 31.6 g/dL 32-[address] [facility] No Panel InformationOrdered By: Dr. Freeman on 08-13-2022 Estimated Creatinine Clearance Calc 41.58 ml/min [facility] Estimated GFR (MDRD) Amer 70 mL/min >60 [facility] Comment on above: GFR Calc Estimated GFR (MDRD) Non-Af Amer 58 mL/min >60 [facility] Comment on above: Non- GFR Calc Valproic Acid (Depakene) Level 38 ug/mL 50-100 [facility] Platelets bldOrdered By: Dr. Freeman on 08-13-2022 Platelets (Bld) [#/Vol] 207 10*3/uL 150-450 [facility] Serum or plasma albumin loretta urement (mass/volume)Ordered By: Dr. Freeman on 08-13-2022 Albumin [Mass/Vol] 3.6 g/dL 3.2-5.0 [facility] Serum or plasma albumin/glob ulin mass ratioOrdered By: Dr. Freeman on 08-13-2022 Albumin/Globulin [Mass ratio] 0.9 {ratio} 0.9-2.4 [facility] Serum or plasma calcium loretta urement (mass/volume)Ordered By: Dr. Freeman on 08-13-2022 Calcium [Mass/Vol] 8.5 mg/dL 8.5-10.1 [facility] Serum or plasma creatinine m easurement (mass/volume)Ordered By: Dr. Freeman on 08-13-2022 Creatinine [Mass/Vol] 1.01 mg/dL 0.55-1.[address] [facility] Comment on above: The validity of the calculated GFR & GFRAA in patients over 70 years has not been determined. Clinical correlation is essential. Serum or plasma urea nitroge n measurement (mass/volume)Ordered By: Dr. Freeman on 08-13-2022 Urea nitrogen [Mass/Vol] 19 mg/dL 7-18 [facility] Thin prep Papanicolaou smear with manual screeningOrdered By: Dr. Freeman on 08-13-2022 Thin prep Papanicolaou smear with manual screening 28 U/L 15-37 [facility] Thin prep Papanicolaou smear with manual screening 4 5-15 [facility] Laboratory - Hematology and Cell countson 06-30-2022 HbA1c (Bld) [Mass fraction] 6.8 % 4.2-6.3 [facility] Culture, urineOrdered By: Dr Yoko Chan on 06-07-2022 Bacteria identified Cx Nom (U) Mixed Gram Pos & Gram Neg Org [facility] Absolute lymphocyte countOrd ered By: Dr. Chan on 06-06-2022 Lymphocytes Auto (Unsp spec) [#/Vol] 1.11 10*3/uL 0.83-4.51 [facility] Basophil percentageOrdered B y: Dr. Chan on 06-06-2022 Basophil percentage 0 SEEN /hpf 0-5 [facility] Basophils/100 WBC (Bld) 0.4 % 0-1 [facility] Bilirubin [Mass/Vol] 0.30 mg/dL 0.20-1.00 [facility] Comment on above: For patients on eltr ombopag therapy, use of Dimension [place] TBIL is not recommended. Chloride [Moles/Vol] 107 mmol/L 98-107 [facility] Eosinophils/100 WBC (Bld) 1.5 % 0-5 [facility] Glucose [Mass/Vol] 117 mg/dL 74-106 [facility] Comment on above: Fasting Glucose resu lt from 100 to 125 mg/dL suggests IMPAIRED HOMEOSTASIS per A.D.A. criteria. Neutrophils (Bld) [#/Vol] 4.0 10*3/uL 2.0-7.7 [facility] Neutrophils/100 WBC (Bld) 72.8 % 47-70 [facility] Potassium [Moles/Vol] 4.2 mmol/L 3.5-5.[address] [facility] Protein [Mass/Vol] 7.9 g/dL 6.4-8.2 [facility] Sodium [Moles/Vol] 142 mmol/L 136-145 [facility] WBC (Bld) [#/Vol] 5.4 10*3/uL 4.4-11.0 [facility] Bilirubin Test strip Ql (U)O rdered By: Dr. Chan on 06-06-2022 Bilirubin Ql (U) Negative Negative [facility] Blood erythrocytes count (nu mber/volume)Ordered By: Dr. Chan on 06-06-2022 RBC (Bld) [#/Vol] 3.83 10*6/uL 4.2-5.4 [facility] Blood hemoglobin measurement (mass/volume)Ordered By: Dr. Chan on 06-06-2022 Hemoglobin (Bld) [Mass/Vol] 11.9 g/dL 12.0-15.0 [facility] Blood lymphocytes/100 leukoc ytesOrdered By: Dr. Chan on 06-06-2022 Lymphocytes/100 WBC (Bld) 20.4 % 19-41 [facility] Blood monocytes/100 leukocyt esOrdered By: Dr. Chan on 06-06-2022 Monocytes/100 WBC (Bld) 4.0 % 0-10 [facility] Blood platelet mean volumeOr dered By: Dr. Chan on 06-06-2022 Platelet mean volume (Bld) [Entitic vol] 10.1 fL 6.2-12.0 [facility] Determination of erythrocyte mean corpuscular volume (MCV)Ordered By: Dr. Chan on 06-06-2022 MCV (RBC) [Entitic vol] 96.6 fL 81-99 [facility] Hematocrit Auto (Bld) [Volum e fraction]Ordered By: Dr. Chan on 06-06-2022 Hematocrit (Bld) [Volume fraction] 37.0 % 37-47 [facility] Ketones Test strip Ql (U)Ord ered By: Dr. Chan on 06-06-2022 Ketones Ql (U) 15 mg/dl Negative [facility] Laboratory - Chemistry and C hemistry - challengeOrdered By: Dr. Chan on 06-06-2022 ALP [Catalytic activity/Vol] 88 U/L 45-117 [facility] ALT [Catalytic activity/Vol] 28 U/L 13-56 [facility] CO2 [Moles/Vol] 26.0 mmol/L 21.0-32.0 [facility] Globulin (S) [Mass/Vol] 4.4 g/dL 2.2-4.2 [facility] Urea nitrogen/Creatinine [Mass ratio] 29.2 mg/mg 10-20 [facility] Laboratory - Hematology and Cell countsOrdered By: Dr. Chan on 06-06-2022 Erythrocyte distribution width (RBC) [Entitic vol] 48.0 fL 35.1-43.9 [facility] Erythrocyte distribution width (RBC) [Ratio] 13.3 % 11.6-14.6 [facility] Immature granulocytes/100 WBC (Bld) 0.900 % 0.0-0.9 [facility] Comment on above: IG% - Immature Granu locytes (promyelocytes, myelocytes and metamyelocytes) > 1% indicates that a LEFT SHIFT is Present. MCH (RBC) [Entitic mass] 31.1 pg 27.0-32.0 [facility] Nucleated RBC/100 WBC (Bld) [Ratio] 0 % 0-5 [facility] MCHC Auto (RBC) [Mass/Vol]Or dered By: Dr. Chan on 06-06-2022 MCHC (RBC) [Mass/Vol] 32.2 g/dL 32-[address] [facility] Mucus LM Ql (Urine sed)Order ed By: Dr. Chan on 06-06-2022 Mucus Ql (Urine sed) 0 SEEN /hpf [facility] Nitrite Test strip Ql (U)Ord ered By: Dr. Chan on 06-06-2022 Nitrite Ql (U) Negative Negative [facility] No Panel InformationOrdered By: Dr. Chan on 06-06-2022 Troponin I High Sensitivity 14 pg/mL 3.0-54.0 [facility] Comment on above: Please Note: New Gina t Units and Gender Specific Reference Ranges. For more information see Policy Stat Procedure [facility] High Sensitivity Troponin (TNIH) and attachments. Estimated Creatinine Clearance Calc 39.62 ml/min [facility] Estimated GFR (MDRD) Amer 66 mL/min >60 [facility] Comment on above: GFR Calc Estimated GFR (MDRD) Non-Af Amer 55 mL/min >60 [facility] Comment on above: Non- GFR Calc Valproic Acid (Depakene) Level 62 ug/mL 50-100 [facility] Platelets bldOrdered By: Dr. Chan on 06-06-2022 Platelets (Bld) [#/Vol] 248 10*3/uL 150-450 [facility] Protein Test strip Ql (U)Ord ered By: Dr. Chan on 06-06-2022 Protein Ql (U) 15 mg/dl Negative [facility] Serum or plasma albumin loretta urement (mass/volume)Ordered By: Dr. Chan on 06-06-2022 Albumin [Mass/Vol] 3.5 g/dL 3.2-5.0 [facility] Serum or plasma albumin/glob ulin mass ratioOrdered By: Dr. Chan on 06-06-2022 Albumin/Globulin [Mass ratio] 0.8 {ratio} 0.9-2.4 [facility] Serum or plasma calcium loretta urement (mass/volume)Ordered By: Dr. Chan on 06-06-2022 Calcium [Mass/Vol] 9.1 mg/dL 8.5-10.1 [facility] Serum or plasma creatinine m easurement (mass/volume)Ordered By: Dr. Chan on 06-06-2022 Creatinine [Mass/Vol] 1.06 mg/dL 0.55-1.[address] [facility] Comment on above: The validity of the calculated GFR & GFRAA in patients over 70 years has not been determined. Clinical correlation is essential. Serum or plasma urea nitroge n measurement (mass/volume)Ordered By: Dr. Chan on 06-06-2022 Urea nitrogen [Mass/Vol] 31 mg/dL 7-18 [facility] Squamous epithelial cells de tection in urine sediment by light microscopyOrdered By: Dr. Chan on 06-06-2022 Epithelial cells.squamous LM Ql (Urine sed) 0-5 SEEN /hpf 5-10 [facility] Thin prep Papanicolaou smear with manual screeningOrdered By: Dr. Chan on 06-06-2022 Thin prep Papanicolaou smear with manual screening 16 U/L 15-37 [facility] Thin prep Papanicolaou smear with manual screening 9 5-15 [facility] Urine blood detectionOrdered By: Dr. Chan on 06-06-2022 RBC Ql (U) Negative Negative [facility] RBC Ql (U) 0 SEEN /hpf 0-5 [facility] Urine clarityOrdered By: Dr. Chan on 06-06-2022 Clarity (U) Clear Clear [facility] Urine color determinationOrd ered By: Dr. Chan on 06-06-2022 Color (U) Yellow Yellow [facility] Urine glucose detectionOrder ed By: Dr. Chan on 06-06-2022 Glucose Ql (U) Normal mg/dl Normal [facility] Urine leukocyte esterase det ection by dipstickOrdered By: Dr. Chan on 06-06-2022 Leukocyte esterase Test strip Ql (U) 100 /ul Negative [facility] Urine pHOrdered By: Dr. Chan o n 06-06-2022 pH (U) 6.0 [pH] 5.0 - 8.0 [facility] Urine sediment bacteria coun t by microscopy (number/high power field)Ordered By: Dr. Chan on 06-06-2022 Bacteria LM.HPF (Urine sed) [#/Area] 0 /[HPF] None Seen [facility] Urine specific gravity measu rementOrdered By: Dr. Chan on 06-06-2022 Specific gravity (U) [Rel density] 1.020 1.002-1.030 [facility] Urobilinogen Auto test strip Ql (U)Ordered By: Dr. Chan on 06-06-2022 Urobilinogen Ql (U) Normal mg/dl Normal [facility] Laboratory - Microbiology an d Antimicrobial susceptibilityOrdered By: Dr. Garcia on 05-06-2022 SARS-CoV-2 (COVID-19) RNA GERONIMO+probe Ql (Unsp spec) Not detected Not Detect [facility] Comment on above: Normal Reference Ran ge: Not DetectedMethod:(RT-PCR) real-time reverse transcriptase PCRLuminex ELIZABETH Instrument*The Food and Drug Administration (FDA) has issued an Emergency Use Authorization (EAU) for the [place] SARS-CoV-2 Assay for the rapid detection of [...] Auto (Unsp spec) [#/Vol] 1.49 10*3/uL 0.83-4.51 [facility] Basophil percentageOrdered B y: Dr. Garcia on 03-14-2022 Basophil percentage 0 SEEN /hpf 0-5 [facility] Basophils/100 WBC (Bld) 0.3 % 0-1 [facility] Bilirubin [Mass/Vol] 0.30 mg/dL 0.20-1.00 [facility] Comment on above: For patients on eltr ombopag therapy, use of Dimension [place] TBIL is not recommended. Chloride [Moles/Vol] 108 mmol/L 98-107 [facility] Eosinophils/100 WBC (Bld) 1.5 % 0-5 [facility] Glucose [Mass/Vol] 125 mg/dL 74-106 [facility] Comment on above: Fasting Glucose resu lt from 100 to 125 mg/dL suggests IMPAIRED HOMEOSTASIS per A.D.A. criteria. Lactate [Moles/Vol] 3.2 mmol/L 0.4-2.0 [facility] Comment on above: Critical Result(s) C alled at: 18:20:28 03/14/2022 by: tommy PHILLIPSMAT ROLLER. Results read back by same. Neutrophils (Bld) [#/Vol] 4.0 10*3/uL 2.0-7.7 [facility] Neutrophils/100 WBC (Bld) 66.8 % 47-70 [facility] Potassium [Moles/Vol] 4.1 mmol/L 3.5-5.[address] [facility] Protein [Mass/Vol] 7.5 g/dL 6.4-8.2 [facility] Sodium [Moles/Vol] 141 mmol/L 136-145 [facility] WBC (Bld) [#/Vol] 6.0 10*3/uL 4.4-11.0 [facility] Bilirubin Test strip Ql (U)O rdered By: Dr. Garcia on 03-14-2022 Bilirubin Ql (U) Negative Negative [facility] Blood erythrocytes count (nu mber/volume)Ordered By: Dr. Garcia on 03-14-2022 RBC (Bld) [#/Vol] 3.71 10*6/uL 4.2-5.4 [facility] Blood hemoglobin measurement (mass/volume)Ordered By: Dr. Garcia on 03-14-2022 Hemoglobin (Bld) [Mass/Vol] 11.6 g/dL 12.0-15.0 [facility] Blood lymphocytes/100 leukoc ytesOrdered By: Dr. Garcia on 03-14-2022 Lymphocytes/100 WBC (Bld) 24.8 % 19-41 [facility] Blood monocytes/100 leukocyt esOrdered By: Dr. Garcia on 03-14-2022 Monocytes/100 WBC (Bld) 6.3 % 0-10 [facility] Blood platelet mean volumeOr dered By: Dr. Garcia on 03-14-2022 Platelet mean volume (Bld) [Entitic vol] 9.9 fL 6.2-12.0 [facility] Determination of erythrocyte mean corpuscular volume (MCV)Ordered By: Dr. Garcia on 03-14-2022 MCV (RBC) [Entitic vol] 96.2 fL 81-99 [facility] Hematocrit Auto (Bld) [Volum e fraction]Ordered By: Dr. Garcia on 03-14-2022 Hematocrit (Bld) [Volume fraction] 35.7 % 37-47 [facility] Ketones Test strip Ql (U)Ord ered By: Dr. Garcia on 03-14-2022 Ketones Ql (U) 15 mg/dl Negative [facility] Laboratory - Chemistry and C hemistry - challengeOrdered By: Dr. Garcia on 03-14-2022 ALP [Catalytic activity/Vol] 84 U/L 45-117 [facility] ALT [Catalytic activity/Vol] 32 U/L 13-56 [facility] CO2 [Moles/Vol] 25.0 mmol/L 21.0-32.0 [facility] Globulin (S) [Mass/Vol] 4.2 g/dL 2.2-4.2 [facility] Urea nitrogen/Creatinine [Mass ratio] 22.6 mg/mg 10-20 [facility] Laboratory - Hematology and Cell countsOrdered By: Dr. Garcia on 03-14-2022 Erythrocyte distribution width (RBC) [Entitic vol] 47.1 fL 35.1-43.9 [facility] Erythrocyte distribution width (RBC) [Ratio] 13.2 % 11.6-14.6 [facility] Immature granulocytes/100 WBC (Bld) 0.300 % 0.0-0.9 [facility] Comment on above: IG% - Immature Granu locytes (promyelocytes, myelocytes and metamyelocytes) > 1% indicates that a LEFT SHIFT is Present. MCH (RBC) [Entitic mass] 31.3 pg 27.0-32.0 [facility] Nucleated RBC/100 WBC (Bld) [Ratio] 0 % 0-5 [facility] MCHC Auto (RBC) [Mass/Vol]Or dered By: Dr. Garcia on 03-14-2022 MCHC (RBC) [Mass/Vol] 32.5 g/dL 32-[address] [facility] Mucus LM Ql (Urine sed)Order ed By: Dr. Garcia on 03-14-2022 Mucus Ql (Urine sed) 0 SEEN /hpf [facility] Nitrite Test strip Ql (U)Ord ered By: Dr. Garcia on 03-14-2022 Nitrite Ql (U) Negative Negative [facility] No Panel InformationOrdered By: Dr. Garcia on 03-14-2022 Estimated Creatinine Clearance Calc 45.15 ml/min [facility] Estimated GFR (MDRD) Amer 77 mL/min >60 [facility] Comment on above: GFR Calc Estimated GFR (MDRD) Non-Af Amer 64 mL/min >60 [facility] Comment on above: Non- GFR Calc Troponin I High Sensitivity 18 pg/mL 3.0-54.0 [facility] Comment on above: Please Note: New Gina t Units and Gender Specific Reference Ranges. For more information see Policy Stat Procedure [facility] High Sensitivity Troponin (TNIH) and attachments. Valproic Acid (Depakene) Level 42 ug/mL 50-100 [facility] Platelets bldOrdered By: Dr. Garcia on 03-14-2022 Platelets (Bld) [#/Vol] 233 10*3/uL 150-450 [facility] Protein Test strip Ql (U)Ord ered By: Dr. Garcia on 03-14-2022 Protein Ql (U) 15 mg/dl Negative [facility] Serum or plasma albumin loretta urement (mass/volume)Ordered By: Dr. Garcia on 03-14-2022 Albumin [Mass/Vol] 3.3 g/dL 3.2-5.0 [facility] Serum or plasma albumin/glob ulin mass ratioOrdered By: Dr. Garcia on 03-14-2022 Albumin/Globulin [Mass ratio] 0.8 {ratio} 0.9-2.4 [facility] Serum or plasma calcium loretta urement (mass/volume)Ordered By: Dr. Garcia on 03-14-2022 Calcium [Mass/Vol] 9.2 mg/dL 8.5-10.1 [facility] Serum or plasma creatinine m easurement (mass/volume)Ordered By: Dr. Garcia on 03-14-2022 Creatinine [Mass/Vol] 0.93 mg/dL 0.55-1.[address] [facility] Comment on above: The validity of the calculated GFR & GFRAA in patients over 70 years has not been determined. Clinical correlation is essential. Serum or plasma urea nitroge n measurement (mass/volume)Ordered By: Dr. Garcia on 03-14-2022 Urea nitrogen [Mass/Vol] 21 mg/dL 7-18 [facility] Squamous epithelial cells de tection in urine sediment by light microscopyOrdered By: Dr. Garcia on 03-14-2022 Epithelial cells.squamous LM Ql (Urine sed) 0-5 SEEN /hpf 5-10 [facility] Thin prep Papanicolaou smear with manual screeningOrdered By: Dr. Garcia on 03-14-2022 Thin prep Papanicolaou smear with manual screening 21 U/L 15-37 [facility] Thin prep Papanicolaou smear with manual screening 8 5-15 [facility] Urine blood detectionOrdered By: Dr. Garcia on 03-14-2022 RBC Ql (U) Negative Negative [facility] RBC Ql (U) 0 SEEN /hpf 0-5 [facility] Urine clarityOrdered By: Dr. Garcia on 03-14-2022 Clarity (U) Clear Clear [facility] Urine color determinationOrd ered By: Dr. Garcia on 03-14-2022 Color (U) Yellow Yellow [facility] Urine glucose detectionOrder ed By: Dr. Garcia on 03-14-2022 Glucose Ql (U) Normal mg/dl Normal [facility] Urine leukocyte esterase det ection by dipstickOrdered By: Dr. Garcia on 03-14-2022 Leukocyte esterase Test strip Ql (U) Negative Negative [facility] Urine pHOrdered By: Dr. Jonathan ryan on 03-14-2022 pH (U) 7.0 [pH] 5.0 - 8.0 [facility] Urine sediment bacteria coun t by microscopy (number/high power field)Ordered By: Dr. Garcia on 03-14-2022 Bacteria LM.HPF (Urine sed) [#/Area] 0 /[HPF] None Seen [facility] Urine specific gravity measu rementOrdered By: Dr. Garcia on 03-14-2022 Specific gravity (U) [Rel density] 1.015 1.002-1.030 [facility] Urobilinogen Auto test strip Ql (U)Ordered By: Dr. Garcia on 03-14-2022 Urobilinogen Ql (U) Normal mg/dl Normal [facility] Absolute lymphocyte counton 01-10-2022 Lymphocytes Auto (Unsp spec) [#/Vol] 1.45 10*3/uL 0.83-4.51 [facility] Work Phone: Basophil percentageon 2021 Basophils/100 WBC (Bld) 0.3 % 0-1 [facility] Work Phone: Bilirubin [Mass/Vol] 0.50 mg/dL 0.20-1.00 [facility] Work Phone: Comment on above: For patients on eltr ombopag therapy, use of Dimension [place] TBIL is not recommended. Chloride [Moles/Vol] 106 mmol/L 98-107 [facility] Work Phone: Cholesterol [Mass/Vol] 195 mg/dL <200 [facility] Work Phone: Comment on above: <200 mg/dL Desirable 200-240 mg/dL Borderline >240 mg/dL High Risk Eosinophils/100 WBC (Bld) 2.9 % 0-5 [facility] Work Phone: Glucose [Mass/Vol] 124 mg/dL 74-106 [facility] Work Phone: Comment on above: Fasting Glucose resu lt from 100 to 125 mg/dL suggests IMPAIRED HOMEOSTASIS per A.D.A. criteria. Neutrophils (Bld) [#/Vol] 2.0 10*3/uL 2.0-7.7 [facility] Work Phone: Neutrophils/100 WBC (Bld) 52.1 % 47-70 [facility] Work Phone: Potassium [Moles/Vol] 4.1 mmol/L 3.5-5.[address] [facility] Work Phone: Protein [Mass/Vol] 7.8 g/dL 6.4-8.2 [facility] Work Phone: [phone] Sodium [Moles/Vol] 141 mmol/L 136-145 [facility] Work Phone: Triglyceride [Mass/Vol] 92 mg/dL <199 [facility] Work Phone: Comment on above: The drugs N-Acetylcy steine and Metamizole may falsely depress this assay.Serum Triglycerides Reference Interval Normal <150 mg/dL Borderline high 150 - 199 mg/dL High 200 - 499 mg/dL Very High > or = 500 mg/dL WBC (Bld) [#/Vol] 3.8 10*3/uL 4.4-11.0 [facility] Work Phone: Blood erythrocytes count (nu mber/volume)on 01-10-2022 RBC (Bld) [#/Vol] 3.90 10*6/uL 4.2-5.4 [facility] Work Phone: Blood hemoglobin measurement (mass/volume)on 01-10-2022 Hemoglobin (Bld) [Mass/Vol] 12.5 g/dL 12.0-15.0 [facility] Work Phone: Blood lymphocytes/100 leukoc yteson 01-10-2022 Lymphocytes/100 WBC (Bld) 37.9 % 19-41 [facility] Work Phone: Blood monocytes/100 leukocyt eson 01-10-2022 Monocytes/100 WBC (Bld) 6.5 % 0-10 [facility] Work Phone: Blood platelet mean volumeon 01-10-2022 Platelet mean volume (Bld) [Entitic vol] 11.1 fL 6.2-12.0 [facility] Work Phone: Determination of erythrocyte mean corpuscular volume (MCV)on 01-10-2022 MCV (RBC) [Entitic vol] 96.4 fL 81-99 [facility] Work Phone: Hematocrit Auto (Bld) [Volum e fraction]on 01-10-2022 Hematocrit (Bld) [Volume fraction] 37.6 % 37-47 [facility] Work Phone: Laboratory - Chemistry and C hemistry - challengeon 01-10-2022 ALP [Catalytic activity/Vol] 87 U/L 45-117 [facility] Work Phone: ALT [Catalytic activity/Vol] 28 U/L 13-56 [facility] Work Phone: CO2 [Moles/Vol] 29.0 mmol/L 21.0-32.0 [facility] Work Phone: Globulin (S) [Mass/Vol] 4.2 g/dL 2.2-4.2 [facility] Work Phone: Urea nitrogen/Creatinine [Mass ratio] 22.6 mg/mg 10-20 [facility] Work Phone: Laboratory - Hematology and Cell countson 01-10-2022 Erythrocyte distribution width (RBC) [Entitic vol] 48.9 fL 35.1-43.9 [facility] Work Phone: Erythrocyte distribution width (RBC) [Ratio] 13.7 % 11.6-14.6 [facility] Work Phone: Immature granulocytes/100 WBC (Bld) 0.300 % 0.0-0.9 [facility] Work Phone: Comment on above: IG% - Immature Granu locytes (promyelocytes, myelocytes and metamyelocytes) > 1% indicates that a LEFT SHIFT is Present. MCH (RBC) [Entitic mass] 32.1 pg 27.0-32.0 [facility] Work Phone: Nucleated RBC/100 WBC (Bld) [Ratio] 0 % 0-5 [facility] Work Phone: MCHC Auto (RBC) [Mass/Vol]on 01-10-2022 MCHC (RBC) [Mass/Vol] 33.2 g/dL 32-[address] [facility] Work Phone: No Panel Informationon 01-10 Estimated GFR (MDRD) Amer 77 mL/min >60 [facility] Work Phone: Comment on above: GFR Calc Estimated GFR (MDRD) Non-Af Amer 64 mL/min >60 [facility] Work Phone: Comment on above: Non- GFR Calc Urine Microalbumin/Creatinine Ratio 7.3 mg/g CRE <30 [facility] Work Phone: Platelets bldon 01-10-2022 Platelets (Bld) [#/Vol] 210 10*3/uL 150-450 [facility] Work Phone: Serum or plasma albumin loretta urement (mass/volume)on 01-10-2022 Albumin [Mass/Vol] 3.6 g/dL 3.2-5.0 [facility] Work Phone: Serum or plasma albumin/glob ulin mass ratioon 01-10-2022 Albumin/Globulin [Mass ratio] 0.9 {ratio} 0.9-2.4 [facility] Work Phone: Serum or plasma calcium loretta urement (mass/volume)on 01-10-2022 Calcium [Mass/Vol] 9.6 mg/dL 8.5-10.1 [facility] Work Phone: Serum or plasma cholesterol in HDL measurement (mass/volume)on 01-10-2022 Cholesterol in HDL [Mass/Vol] 53 mg/dL >40 [facility] Work Phone: Comment on above: The drugs N-Acetylcy steine and Metamizole may falsely depress this assay. Reference Range HDL <40 mg/dL Low HDL Cholesterol HDL >or= 60 mg/dL High HDL Cholesterol Serum or plasma cholesterol in VLDL measurement (mass/volume)on 01-10-2022 Cholesterol in VLDL [Mass/Vol] 18 mg/dL 5-40 [facility] Work Phone: Serum or plasma creatinine m easurement (mass/volume)on 01-10-2022 Creatinine [Mass/Vol] 0.93 mg/dL 0.55-1.[address] [facility] Work Phone: Comment on above: The validity of the calculated GFR & GFRAA in patients over 70 years has not been determined. Clinical correlation is essential. Serum or plasma low density lipoprotein (LDL) cholesterol measurement (mass/volume)on 01-10-2022 Cholesterol in LDL [Mass/Vol] 124 mg/dL 0-130 [facility] Work Phone: Serum or plasma urea nitroge n measurement (mass/volume)on 01-10-2022 Urea nitrogen [Mass/Vol] 21 mg/dL 7-18 [facility] Work Phone: Thin prep Papanicolaou smear with manual screeningon 01-10-2022 Thin prep Papanicolaou smear with manual screening 17 U/L 15-37 [facility] Work Phone: Thin prep Papanicolaou smear with manual screening 6 5-15 [facility] Work Phone: Thin prep Papanicolaou smear with manual screening 22.4 mg/L NO RANGE EST. [facility] Work Phone: Urine creatinine measurement (mass/volume)on 01-10-2022 Creatinine (U) [Mass/Vol] 308.00 mg/dL NO RANGE EST. [facility] Work Phone: Whole blood hemoglobin A1c/t otal hemoglobin ratio (mass fraction)on 01-10-2022 HbA1c (Bld) [Mass fraction] 7.3 % 3.8-5.6 [facility] Work Phone: Comment on above: Normal < 5.7 % Predi abetic 5.7 - 6.4 % Diabetic >or= 6.5 % Please note range changes. Absolute lymphocyte counton 01-03-2022 Lymphocytes Auto (Unsp spec) [#/Vol] 2.28 10*3/uL 0.83-4.51 [facility] Work Phone: Basophil percentageon 2021 Basophils/100 WBC (Bld) 0.6 % 0-1 [facility] Work Phone: Bilirubin [Mass/Vol] 0.20 mg/dL 0.20-1.00 [facility] Work Phone: Comment on above: For patients on eltr ombopag therapy, use of Dimension Stephenson TBIL is not recommended. Chloride [Moles/Vol] 110 mmol/L 98-107 [facility] Work Phone: Eosinophils/100 WBC (Bld) 3.1 % 0-5 [facility] Work Phone: Glucose [Mass/Vol] 154 mg/dL 74-106 [facility] Work Phone: Comment on above: Fasting Glucose resu lt greater than or equal to 126 mg/dL suggests DIABETES MELLITUS per A.D.A. criteria. Neutrophils (Bld) [#/Vol] 2.2 10*3/uL 2.0-7.7 [facility] Work Phone: Neutrophils/100 WBC (Bld) 44.8 % 47-70 [facility] Work Phone: Potassium [Moles/Vol] 3.8 mmol/L 3.5-5.[address] [facility] Work Phone: [phone] Protein [Mass/Vol] 6.0 g/dL 6.4-8.2 [facility] Work Phone: Sodium [Moles/Vol] 141 mmol/L 136-145 [facility] Work Phone: WBC (Bld) [#/Vol] 4.9 10*3/uL 4.4-11.0 [facility] Work Phone: [phone] Blood erythrocytes count (nu mber/volume)on 01-03-2022 RBC (Bld) [#/Vol] 3.20 10*6/uL 4.2-5.4 [facility] Work Phone: Blood hemoglobin measurement (mass/volume)on 01-03-2022 Hemoglobin (Bld) [Mass/Vol] 10.1 g/dL 12.0-15.0 [facility] Work Phone: Blood lymphocytes/100 leukoc yteson 01-03-2022 Lymphocytes/100 WBC (Bld) 46.4 % 19-41 [facility] Work Phone: Blood monocytes/100 leukocyt eson 01-03-2022 Monocytes/100 WBC (Bld) 4.9 % 0-10 [facility] Work Phone: Blood platelet mean volumeon 01-03-2022 Platelet mean volume (Bld) [Entitic vol] 10.8 fL 6.2-12.0 [facility] Work Phone: Determination of erythrocyte mean corpuscular volume (MCV)on 01-03-2022 MCV (RBC) [Entitic vol] 97.2 fL 81-99 [facility] Work Phone: Glucose Glucometer (BldC) [M ass/Vol]on 01-03-2022 Glucose [Mass/Vol] 107 mg/dL 74-106 [facility] Work Phone: Comment on above: MANAGEMENT OF PATIEN T CARE PER NURSING PROTOCOL Hematocrit Auto (Bld) [Volum e fraction]on 01-03-2022 Hematocrit (Bld) [Volume fraction] 31.1 % 37-47 [facility] Work Phone: Laboratory - Chemistry and C hemistry - challengeon 01-03-2022 ALP [Catalytic activity/Vol] 83 U/L 45-117 [facility] Work Phone: ALT [Catalytic activity/Vol] 23 U/L 13-56 [facility] Work Phone: CO2 [Moles/Vol] 26.0 mmol/L 21.0-32.0 [facility] Work Phone: Globulin (S) [Mass/Vol] 3.4 g/dL 2.2-4.2 [facility] Work Phone: Urea nitrogen/Creatinine [Mass ratio] 22.9 mg/mg 10-20 [facility] Work Phone: Laboratory - Hematology and Cell countson 01-03-2022 Erythrocyte distribution width (RBC) [Entitic vol] 48.3 fL 35.1-43.9 [facility] Work Phone: Erythrocyte distribution width (RBC) [Ratio] 13.4 % 11.6-14.6 [facility] Work Phone: Immature granulocytes/100 WBC (Bld) 0.200 % 0.0-0.9 [facility] Work Phone: Comment on above: IG% - Immature Granu locytes (promyelocytes, myelocytes and metamyelocytes) > 1% indicates that a LEFT SHIFT is Present. MCH (RBC) [Entitic mass] 31.6 pg 27.0-32.0 [facility] Work Phone: Nucleated RBC/100 WBC (Bld) [Ratio] 0 % 0-5 [facility] Work Phone: MCHC Auto (RBC) [Mass/Vol]on 01-03-2022 MCHC (RBC) [Mass/Vol] 32.5 g/dL 32-[address] [facility] Work Phone: No Panel Informationon 01-03 Estimated Creatinine Clearance Calc 50.59 ml/min [facility] Work Phone: Estimated GFR (MDRD) Amer 88 mL/min >60 [facility] Work Phone: Comment on above: GFR Calc Estimated GFR (MDRD) Non-Af Amer 73 mL/min >60 [facility] Work Phone: Comment on above: Non- GFR Calc Platelets bldon 01-03-2022 Platelets (Bld) [#/Vol] 181 10*3/uL 150-450 [facility] Work Phone: Serum or plasma albumin loretta urement (mass/volume)on 01-03-2022 Albumin [Mass/Vol] 2.6 g/dL 3.2-5.0 [facility] Work Phone: Serum or plasma albumin/glob ulin mass ratioon 01-03-2022 Albumin/Globulin [Mass ratio] 0.8 {ratio} 0.9-2.4 [facility] Work Phone: Serum or plasma calcium loretta urement (mass/volume)on 01-03-2022 Calcium [Mass/Vol] 8.0 mg/dL 8.5-10.1 [facility] Work Phone: Serum or plasma creatinine m easurement (mass/volume)on 01-03-2022 Creatinine [Mass/Vol] 0.83 mg/dL 0.55-1.[address] [facility] Work Phone: Comment on above: The validity of the calculated GFR & GFRAA in patients over 70 years has not been determined. Clinical correlation is essential. Serum or plasma urea nitroge n measurement (mass/volume)on 01-03-2022 Urea nitrogen [Mass/Vol] 19 mg/dL 7-18 [facility] Work Phone: Thin prep Papanicolaou smear with manual screeningon 01-03-2022 Thin prep Papanicolaou smear with manual screening 15 U/L 15-37 [facility] Work Phone: Thin prep Papanicolaou smear with manual screening 5 5-15 [facility] Work Phone: No Panel Informationon 01-02 Troponin I High Sensitivity 5 pg/mL 3.0-54.0 [facility] Work Phone: Comment on above: Please Note: New Gina t Units and Gender Specific Reference Ranges. For more information see Policy Stat Procedure Stephenson High Sensitivity Troponin (TNIH) and attachments. D-Dimer Quantitative (PE/DVT) 0.57 FEU/ug/m 0.27-0.49 [facility] Work Phone: Comment on above: D-Dimer ELEVATED (>0 .49): Additional studies and clinicalassessments are indicated to conclude diagnosis of:Deep Vein Thrombosis (DVT) or Pulmonary Embolism (PE)CRITICAL VALUE VERIFIED. CALLED TO NIDIA COLLINS (ER)01/02/22 [id number] Mynor James.RESULTS READ BACK BY SAME. Basophil percentageon 2021 Basophil percentage 0-5 SEEN /hpf 0-5 [facility] Work Phone: Bilirubin Test strip Ql (U)o n 12-17-2021 Bilirubin Ql (U) Negative Negative [facility] Work Phone: Ketones Test strip Ql (U)on 12-17-2021 Ketones Ql (U) Negative Negative [facility] Work Phone: Mucus LM Ql (Urine sed)on Mucus Ql (Urine sed) RARE /hpf [facility] Work Phone: Nitrite Test strip Ql (U)on 12-17-2021 Nitrite Ql (U) Negative Negative [facility] Work Phone: Protein Test strip Ql (U)on 12-17-2021 Protein Ql (U) Negative Negative [facility] Work Phone: Squamous epithelial cells de tection in urine sediment by light microscopyon 12-17-2021 Epithelial cells.squamous LM Ql (Urine sed) 0-5 SEEN /hpf 5-10 [facility] Work Phone: Urine blood detectionon 12-02 RBC Ql (U) Negative Negative [facility] Work Phone: RBC Ql (U) 0 SEEN /hpf 0-5 [facility] Work Phone: Urine clarityon 12-17-2021 Clarity (U) Clear Clear [facility] Work Phone: Urine color determinationon 12-17-2021 Color (U) Yellow Yellow [facility] Work Phone: Urine glucose detectionon Glucose Ql (U) Normal mg/dl Normal [facility] Work Phone: Urine leukocyte esterase det ection by dipstickon 12-17-2021 Leukocyte esterase Test strip Ql (U) 100 /ul Negative [facility] Work Phone: Urine pHon 12-17-2021 pH (U) 8.0 [pH] 5.0 - 8.0 [facility] Work Phone: Urine sediment bacteria coun t by microscopy (number/high power field)on 12-17-2021 Bacteria LM.HPF (Urine sed) [#/Area] 1 /[HPF] None Seen [facility] Work Phone: Urine specific gravity measu rementon 12-17-2021 Specific gravity (U) [Rel density] 1.015 1.002-1.030 [facility] Work Phone: Urobilinogen Auto test strip Ql (U)on 12-17-2021 Urobilinogen Ql (U) 1 mg/dl Normal [facility] Work Phone: Laboratory - Hematology and Cell countson 11-06-2021 HbA1c (Bld) [Mass fraction] 7.2 % 4.2-6.3 [facility] Work Phone: Absolute lymphocyte counton 10-25-2021 Lymphocytes Auto (Unsp spec) [#/Vol] 2.55 10*3/uL 0.83-4.51 [facility] Work Phone: Basophil percentageon 2021 Basophils/100 WBC (Bld) 0.5 % 0-1 [facility] Work Phone: Bilirubin [Mass/Vol] 0.20 mg/dL 0.20-1.00 [facility] Work Phone: Comment on above: For patients on eltr ombopag therapy, use of Dimension Stephenson TBIL is not recommended. Chloride [Moles/Vol] 105 mmol/L 98-107 [facility] Work Phone: Eosinophils/100 WBC (Bld) 2.1 % 0-5 [facility] Work Phone: Glucose [Mass/Vol] 188 mg/dL 74-106 [facility] Work Phone: Comment on above: Fasting Glucose resu lt greater than or equal to 126 mg/dL suggests DIABETES MELLITUS per A.D.A. criteria. Neutrophils (Bld) [#/Vol] 3.5 10*3/uL 2.0-7.7 [facility] Work Phone: Neutrophils/100 WBC (Bld) 52.9 % 47-70 [facility] Work Phone: Potassium [Moles/Vol] 4.0 mmol/L 3.5-5.[address] [facility] Work Phone: Protein [Mass/Vol] 7.6 g/dL 6.4-8.2 [facility] Work Phone: Sodium [Moles/Vol] 138 mmol/L 136-145 [facility] Work Phone: WBC (Bld) [#/Vol] 6.6 10*3/uL 4.4-11.0 [facility] Work Phone: Blood erythrocytes count (nu mber/volume)on 10-25-2021 RBC (Bld) [#/Vol] 4.16 10*6/uL 4.2-5.4 [facility] Work Phone: Blood hemoglobin measurement (mass/volume)on 10-25-2021 Hemoglobin (Bld) [Mass/Vol] 13.0 g/dL 12.0-15.0 [facility] Work Phone: [phone] Blood lymphocytes/100 leukoc yteson 10-25-2021 Lymphocytes/100 WBC (Bld) 38.4 % 19-41 [facility] Work Phone: Blood monocytes/100 leukocyt eson 10-25-2021 Monocytes/100 WBC (Bld) 5.9 % 0-10 [facility] Work Phone: Blood platelet mean volumeon 10-25-2021 Platelet mean volume (Bld) [Entitic vol] 10.6 fL 6.2-12.0 [facility] Work Phone: Determination of erythrocyte mean corpuscular volume (MCV)on 10-25-2021 MCV (RBC) [Entitic vol] 95.4 fL 81-99 [facility] Work Phone: Hematocrit Auto (Bld) [Volum e fraction]on 10-25-2021 Hematocrit (Bld) [Volume fraction] 39.7 % 37-47 [facility] Work Phone: Laboratory - Chemistry and C hemistry - challengeon 10-25-2021 ALP [Catalytic activity/Vol] 92 U/L 45-117 [facility] Work Phone: ALT [Catalytic activity/Vol] 33 U/L 13-56 [facility] Work Phone: CO2 [Moles/Vol] 27.0 mmol/L 21.0-32.0 [facility] Work Phone: Globulin (S) [Mass/Vol] 4.1 g/dL 2.2-4.2 [facility] Work Phone: Lipase [Catalytic activity/Vol] 89 U/L 73-393 [facility] Work Phone: Urea nitrogen/Creatinine [Mass ratio] 20.7 mg/mg 10-20 [facility] Work Phone: Laboratory - Hematology and Cell countson 10-25-2021 Erythrocyte distribution width (RBC) [Entitic vol] 46.5 fL 35.1-43.9 [facility] Work Phone: Erythrocyte distribution width (RBC) [Ratio] 13.1 % 11.6-14.6 [facility] Work Phone: Immature granulocytes/100 WBC (Bld) 0.200 % 0.0-0.9 [facility] Work Phone: Comment on above: IG% - Immature Granu locytes (promyelocytes, myelocytes and metamyelocytes) > 1% indicates that a LEFT SHIFT is Present. MCH (RBC) [Entitic mass] 31.3 pg 27.0-32.0 [facility] Work Phone: Nucleated RBC/100 WBC (Bld) [Ratio] 0 % 0-5 [facility] Work Phone: MCHC Auto (RBC) [Mass/Vol]on 10-25-2021 MCHC (RBC) [Mass/Vol] 32.7 g/dL 32-[address] [facility] Work Phone: No Panel Informationon 10-25 Estimated Creatinine Clearance Calc 46.29 ml/min [facility] Work Phone: Estimated GFR (MDRD) Amer 78 mL/min >60 [facility] Work Phone: Comment on above: GFR Calc Estimated GFR (MDRD) Non-Af Amer 64 mL/min >60 [facility] Work Phone: Comment on above: Non- GFR Calc Troponin I High Sensitivity < 3 pg/mL 3.0-54.0 [facility] Work Phone: Comment on above: Please Note: New Gina t Units and Gender Specific Reference Ranges. For more information see Policy Stat Procedure Stephenson High Sensitivity Troponin (TNIH) and attachments. Platelets bldon 10-25-2021 Platelets (Bld) [#/Vol] 223 10*3/uL 150-450 [facility] Work Phone: Serum or plasma albumin loretta urement (mass/volume)on 10-25-2021 Albumin [Mass/Vol] 3.5 g/dL 3.2-5.0 [facility] Work Phone: Serum or plasma albumin/glob ulin mass ratioon 10-25-2021 Albumin/Globulin [Mass ratio] 0.9 {ratio} 0.9-2.4 [facility] Work Phone: Serum or plasma calcium loretta urement (mass/volume)on 10-25-2021 Calcium [Mass/Vol] 9.1 mg/dL 8.5-10.1 [facility] Work Phone: Serum or plasma creatinine m easurement (mass/volume)on 10-25-2021 Creatinine [Mass/Vol] 0.92 mg/dL 0.55-1.[address] [facility] Work Phone: Comment on above: The validity of the calculated GFR & GFRAA in patients over 70 years has not been determined. Clinical correlation is essential. Serum or plasma urea nitroge n measurement (mass/volume)on 10-25-2021 Urea nitrogen [Mass/Vol] 19 mg/dL 7-18 [facility] Work Phone: Thin prep Papanicolaou smear with manual screeningon 10-25-2021 Thin prep Papanicolaou smear with manual screening 22 U/L 15-37 [facility] Work Phone: Thin prep Papanicolaou smear with manual screening 6 5-15 [facility] Work Phone: PROGRESSon 06-03-2018 Protein mass conc HNO ID: [id number] Author: Tila (Pt) Jenelle Service: (none) Author Type: Physical Therapist Type: Progress Notes Filed: 06/03/2018 12:16 PM Note Text: 06/03/2018 [facility] PHYSICAL THERAPY DISCONTINUANCE OF CARE Plan of Care Period: Start of Care Date: 01/05/18 Last Visit Date: 02/25/18 Therapy Program: The following is a summary of the interventions provided for this episode of care; Therapeutic exercise, Neuromuscular re-education, Manual therapy, Patient/Family/Caregiver Education and Modalities: Ultrasound Assessment: The following is the goal status: Goals updated on 02/04/2018. Gem in home exercise program.--MET for current HEP [...] or scheduled additional follow-up appointments. SARAH Posada [facility] CNTHERAPYon 02-25-2018 CNTHERAPY OT/PT/Speech Visit (PTWS) -------- LACY ALVARADO ([id number]) 1950 F Date Time Provider Department 02/25/18 7:00 AM TILA ALMANZAR (PT) PTWS Date Time Provider Department Center 02/25/2018 7:00 AM [id number], DIANA (PT)PTWS [facility] Reason for Visit: Physical Therapy [503] [...] CAPSULE,MANDIE* Take 1 capsule by mouth twice* [id number] * Use 3 Drops in the [...] needs. Patient response monitored throughout treatment. Billing: [facility]: Therapeutic Exercise (30442): 1:1 time: 36 minutes (2 units: 23-37 mins) Modalities Ultrasound (05794) 1:1 time: 8 minutes1 unit: 8-22 mins Total time: 44 minutes Tila Almanzar, PT Tila Almanzar, PT 06/03/2018 12:16 PM Signed 06/03/2018 [facility] PHYSICAL THERAPY DISCONTINUANCE OF CARE Plan of Care Period: Start of Care Date: 01/05/18 Last Visit Date: 02/25/18 Therapy Program: The following is a summary of the interventions provided for this episode of care; Therapeutic exercise, Neuromuscular re-education, Manual therapy, Patient/Family/Caregiver Education and Modalities: Ultrasound Assessment: The following is the goal status: Goals updated on 02/04/2018. Gem in home exercise program.--MET for current HEP [...] follow-up appointments. Tila Almanzar PT -------- Normal [facility] PROGRESSon 02-25-2018 Protein mass conc HNO ID: [id number] Author: Tila ArteagaPtJeanie Almanzar Service: (none) Author Type: Physical Therapist [...] needs. Patient response monitored throughout treatment. Billing: [facility]: Therapeutic Exercise (76832): 1:1 time: 36 minutes (2 units: 23-37 mins) Modalities Ultrasound (35320) 1:1 time: 8 minutes1 unit: 8-22 mins Total time: 44 minutes Tila Almanzar PT Normal [facility] CNOVon 02-22-2018 CNOV Office Visit (PODIWS ) -------- LACY ALVARADO ([id number]) 1950 F Date Time Provider Department 02/22/18 [...] (H) 4.3 - 5.6 % Final Comment: [place] [employer] guidelines indicate that patients with [...] 81 MG TAB Take one(1) tablet daily. mkabocok-cufskajpb-vmcqv cortisone (CORTISPORIN) otic solution Use 3 Drops [...] Mynor Flores DPM Referring Provider: MYNOR FLORES [[id number]] Allergies As of Date: 02/22/2018 Noted Allergy [...] [M76.61] Order(s):XR FOOT GENERAL 3V AP/LAT/OBL RT [[id number]] Order #: [id number] FUTURE MRI ANKLE WO IVCON RT [[id number]] Order #: [id number] FUTURE Prescriptions as of 02/22/2018 Sig: VERAPAMIL [...] 81 MG TABLET Take one(1) tablet daily. AAWBGLKI-POHWYWHIW-TYYBH NIRU * Use 3 Drops in the [...] by MYNOR FLORES DPM on 02/22/18 Normal [facility] PROGRESSon 02-22-2018 Protein mass conc HNO ID: [id number] Author: John Paul Godinez (Rt) Service: (none) Author Type: Research Staff Member Type: Progress Notes Filed: 02/22/2018 10:36 AM [...] Gretchen February 22, 2018 8:59 AM Normal [facility] Protein mass conc HNO ID: [id number] Author: Mynor Flores Service: (none) Author Type: [...] (H) 4.3 - 5.6 % Final Comment: [place] [employer] guidelines indicate that patients with [...] 81 MG TAB Take one(1) tablet daily. cawoxttr-qyqnleglp-krrfi cortisone (CORTISPORIN) otic solution Use 3 Drops [...] interested in surgery. Mynor Flores DPM Normal [facility] Protein mass conc HNO ID: [id number] Author: Carmelita Limon RN Service: (none) Author [...] in the future, possibly next summer. Normal [facility] XR FEMUR 2V AP/LAT RTon 02-02 XR [...] DEGENERATIVE CHANGES IN THE HIP AND KNEE. Sanitation Worker Cleaning Equipment: RADHA Transcribe Date/Time: Feb 22 2018 3:06P Dictated by : CHRIS FRANCIS MD This examination was interpreted and the report reviewed and electronically signed by: CHRIS FRANCIS MD on Feb 22 2018 3:15PM EST [id number] Normal [facility] XR FOOT 3V AP/LAT/OBL RTon 1 XR [...] NO CHANGE COMPARED TO THE PREVIOUS EXAM. Sanitation Worker Cleaning Equipment: RADHA Transcribe Date/Time: Feb 22 2018 3:15P Dictated by : CHRIS FRANCIS MD This examination was interpreted and the report reviewed and electronically signed by: CHRIS FRANCIS MD on Feb 22 2018 3:18PM EST [id number] Normal [facility] CNTHERAPYon 02-18-2018 CNTHERAPY OT/PT/Speech Visit (PTWS) -------- LACY ALVARADO ([id number]) 1950 F Date Time Provider Department 02/18/18 7:00 AM TILA ALMANZAR (PT) PTWS Date Time Provider Department Center 02/18/2018 7:00 AM [id number], DIANA (PT)PTWS [facility] Reason for Visit: Physical Therapy [503] [...] CAPSULE,MANDIE* Take 1 capsule by mouth twice* DTBVWMAF-LFMWCXZLI-UZXSE NIRU * Use 3 Drops in the [...] needs. Patient response monitored throughout treatment. Billing: [facility]: Therapeutic Exercise (52484): 1:1 time: 35 minutes (2 units: 23-37 mins) Modalities Ultrasound (73135) 1:1 time: 8 minutes1 unit: 8-22 mins Total time: 43 minutes Tila Almanzar PT -------- Normal [facility] PROGRESSon 02-18-2018 Protein mass conc HNO ID: [id number] Author: Tila (Pt) Jenelle Service: (none) Author [...] needs. Patient response monitored throughout treatment. Billing: [facility]: Therapeutic Exercise (34103): 1:1 time: 35 minutes (2 units: 23-37 mins) Modalities Ultrasound (18166) 1:1 time: 8 minutes1 unit: 8-22 mins Total time: 43 minutes Tila Almanazr PT Normal [facility] CNTHERAPYon 02-11-2018 CNTHERAPY OT/PT/Speech Visit (PTWS) -------- LACY ALVARADO ([id number]) 1950 F Date Time Provider Department 02/11/18 7:45 AM TILA ALMANZAR (PT) PTWS Date Time Provider Department Center 02/11/2018 7:45 AM [id number], DIANA (PT)PTWS [facility] Reason for Visit: Physical Therapy [503] [...] CAPSULE,MANDIE* Take 1 capsule by mouth twice* RGLGSOEW-INBMDJZAM-NPIJA NIRU * Use 3 Drops in the [...] and compliance. Patient education as noted. Billing: [facility]: Therapeutic Exercise (78728): 1:1 time: 38 minutes (3 units: 38-52 mins) Total time: 38 minutes Tila Almanzar PT -------- Normal [facility] PROGRESSon 02-11-2018 Protein mass conc HNO ID: [id number] Author: Tila (Jacquie Almanzar Service: (none) Author [...] and compliance. Patient education as noted. Billing: [facility]: Therapeutic Exercise (38269): 1:1 time: 38 minutes (3 units: 38-52 mins) Total time: 38 minutes Tila Almanzar PT Normal [facility] CNTHERAPYon 02-04-2018 CNTHERAPY OT/PT/Speech Visit (PTWS) -------- JENNYLACY Ede ([id number]) 1950 F Date Time Provider Department 02/04/18 7:45 AM TILA ALMANZAR (PT) PTWS Date Time Provider Department Center 02/04/2018 7:45 AM [id number], DIANA (PT)PTWS [facility] Reason for Visit: PT Progress Note [...] CAPSULE,MANDIE* Take 1 capsule by mouth twice* KQJHGCPM-RZDOGDXZW-WKTHR NIRU * Use 3 Drops in the [...] intensity of pain Goals updated on 02/04/2018. Gem in home exercise program.--MET for current HEP [...] provided in selection of appropriate interventions. Billing: [facility]: Therapeutic Exercise (34511): 1:1 time: 20 minutes (1 unit: 8-22 mins) Total time: 20 minutes Tila Almanzar PT -------- Normal [facility] PROGRESSon 02-04-2018 Protein mass conc HNO ID: [id number] Author: Tila (Pt) Jenelle Service: (none) Author [...] intensity of pain Goals updated on 02/04/2018. Gem in home exercise program.--MET for current HEP [...] provided in selection of appropriate interventions. Billing: [facility]: Therapeutic Exercise (94821): 1:1 time: 20 minutes (1 unit: 8-22 mins) Total time: 20 minutes SARAH Posada [facility] CNTHERAPYon 02-02-2018 CNTHERAPY OT/PT/Speech Visit (PTWS) -------- LACY ALVARADO ([id number]) 1950 F Date Time Provider Department 02/02/18 7:45 AM TILA ALMANZAR (PT) PTWS Date Time Provider Department Center 02/02/2018 7:45 AM [id number], DIANA (PT)PTWS [facility] Reason for Visit: Physical Therapy [503] [...] CAPSULE,MANDIE* Take 1 capsule by mouth twice* AUKVCZGP-WIGOGQRCV-VSUOJ NIRU * Use 3 Drops in the [...] Manual Therapy: 1: Prone: IASTM with [employer] Console Attendant Scanner for 13 minutes to R achillies tendon Skilled Intervention: Manual skills to improve joint mobility, ROM, and decrease pain. Utilized anatomy knowledge of the therapist, and assessment of patient's response to intervention. Billing: [facility]: Therapeutic Exercise (43160): 1:1 time: 22 minutes (1 unit: 8-22 mins) Manual Therapy (38416): 1:1 time: 13 minutes (1 unit: 8-22 mins) Total time: 35 minutes Tila Almanzar PT -------- Normal [facility] PROGRESSon 02-02-2018 Protein mass conc HNO ID: [id number] Author: Tila (Pt) Jenelle Service: (none) Author [...] Lacy Ede Alvarado demonstrated good tolerance to 1 lb [...] Manual Therapy: 1: Prone: IASTM with [employer] Console Attendant Scanner for 13 minutes to R achillies tendon Skilled Intervention: Manual skills to improve joint mobility, ROM, and decrease pain. Utilized anatomy knowledge of the therapist, and assessment of patient's response to intervention. Billing: [facility]: Therapeutic Exercise (71135): 1:1 time: 22 minutes (1 unit: 8-22 mins) Manual Therapy (41638): 1:1 time: 13 minutes (1 unit: 8-22 mins) Total time: 35 minutes Tila Almanzar PT Normal [facility] PROGRESSon 01-31-2018 Protein mass conc HNO ID: [id number] Author: Tila (Pt) Jenelle Service: (none) Author [...] interventions. Manual Therapy: 1: Prone: IASTM with [employer] Console Attendant Scanner for 8 minutes to R achillies [...] needs. Patient response monitored throughout treatment. Billing: [facility]: Therapeutic Exercise (63193): 1:1 time: 20 minutes (2 units: 23-37 mins) Manual Therapy (74174): 1:1 time: 12 minutes (1 unit: 8-22 mins) Modalities Ultrasound (78539) 1:1 time: 10 minutes1 unit: 8-22 mins Total time: 42 minutes Tila Almanzar PT Normal [facility] CNTHERAPYon 01-28-2018 CNTHERAPY OT/PT/Speech Visit (PTWS) -------- LACY ALVARADO ([id number]) 1950 F Date Time Provider Department 01/28/18 7:45 AM TILA ALMANZAR (PT) PTWS Date Time Provider Department Center 01/28/2018 7:45 AM [id number], DIANA (PT)PTWS [facility] Reason for Visit: Physical Therapy [503] [...] CAPSULE,MANDIE* Take 1 capsule by mouth twice* EQXDOBUZ-KFWOBGEAO-GYDWW NIRU * Use 3 Drops in the [...] interventions. Manual Therapy: 1: Prone: IASTM with [employer] Cle[employer] Scanner for 8 minutes to R achillies [...] needs. Patient response monitored throughout treatment. Billing: [facility]: Therapeutic Exercise (91973): 1:1 time: 20 minutes (2 units: 23-37 mins) Manual Therapy (62961): 1:1 time: 12 minutes (1 unit: 8-22 mins) Modalities Ultrasound (23682) 1:1 time: 10 minutes1 unit: 8-22 mins Total time: 42 minutes Tila Almanzar PT -------- Normal [facility] PROGRESSon 01-27-2018 Protein mass conc HNO ID: [id number] Author: Tila (Pt) Jenelle Service: (none) Author [...] up she had not problems. Tried [employer] Console Attendant scanner tool for IASTM and Kinesiotaping. Will assess at next session. The patient will continue to benefit from continued skilled physical therapy for thex ex, manual, and US for pain control of R heel pain. PLAN FOR NEXT VISIT: See how liked Hawk Console Attendant tools and kinesiotape; BAPS Board for Ankle [...] cuing. Manual Therapy: 1: Prone: IASTM with [employer] Cleaning Scanner for 6 minutes to R achillies [...] needs. Patient response monitored throughout treatment. Billing: [facility]: Therapeutic Exercise (12192): 1:1 time: 20 minutes (1 unit: 8-22 mins) Manual Therapy (44748): 1:1 time: 15 minutes (1 unit: 8-22 mins) Modalities Ultrasound (29050) 1:1 time: 10 minutes1 unit: 8-22 mins Total time: 45 minutes Tila Almanzar PT Normal [facility] CNTHERAPYon 01-26-2018 CNTHERAPY OT/PT/Speech Visit (PTWS) -------- LACY ALVARADO ([id number]) 1950 F Date Time Provider Department 01/26/18 7:00 AM TILA ALMANZAR (PT) PTWS Date Time Provider Department Center 01/26/2018 7:00 AM [id number], DIANA (PT)PTWS [facility] Reason for Visit: Physical Therapy [503] [...] CAPSULE,MANDIE* Take 1 capsule by mouth twice* UPTPEYCJ-IODWENACB-EPZMF NIRU * Use 3 Drops in the [...] up she had not problems. Tried [employer] Console Attendant scanner tool for IASTM and Kinesiotaping. Will assess at next session. The patient will continue to benefit from continued skilled physical therapy for thex ex, manual, and US for pain control of R heel pain. PLAN FOR NEXT VISIT: See how liked [employer] Console Attendant tools and kinesiotape; BAPS Board for Ankle [...] Manual Therapy: 1: Prone: IASTM with [employer] Console Attendant Scanner for 6 minutes to R danilo tendon 2: Kinesiotape to R achillies tendon [...] needs. Patient response monitored throughout treatment. Billing: [facility]: Therapeutic Exercise (78265): 1:1 time: 20 minutes (1 unit: 8-22 mins) Manual Therapy (08067): 1:1 time: 15 minutes (1 unit: 8-22 mins) Modalities Ultrasound (06875) 1:1 time: 10 minutes1 unit: 8-22 mins Total time: 45 minutes Tila Almanzar PT -------- Normal [facility] PROGRESSon 01-24-2018 Protein mass conc HNO ID: [id number] Author: Tila Almanzar Service: (none) Author Type: [...] needs. Patient response monitored throughout treatment. Billing: [facility]: Therapeutic Exercise (28650): 1:1 time: 19 minutes (1 unit: 8-22 mins) Manual Therapy (92048): 1:1 time: 8 minutes (1 unit: 8-22 mins) Modalities Ultrasound (00249) 1:1 time: 15 minutes1 unit: 8-22 mins Total time: 42 minutes Tila Almanzar PT Normal [facility] CNTHERAPYon 01-21-2018 CNTHERAPY OT/PT/Speech Visit (PTWS) -------- LACY ALVARADO ([id number]) 1950 F Date Time Provider Department 01/21/18 7:45 AM TILA ALMANZAR (PT) PTWS Date Time Provider Department Center 01/21/2018 7:45 AM [id number], DIANA (PT)PTWS [facility] Reason for Visit: Physical Therapy [503] [...] CAPSULE,MANDIE* Take 1 capsule by mouth twice* ORVOJQJA-VPHVDBCPC-SIEOR NIRU * Use 3 Drops in the [...] needs. Patient response monitored throughout treatment. Billing: [facility]: Therapeutic Exercise (85586): 1:1 time: 19 minutes (1 unit: 8-22 mins) Manual Therapy (30438): 1:1 time: 8 minutes (1 unit: 8-22 mins) Modalities Ultrasound (16352) 1:1 time: 15 minutes1 unit: 8-22 mins Total time: 42 minutes Tila Almanzar PT -------- Normal [facility] CNTHERAPYon 01-12-2018 CNTHERAPY OT/PT/Speech Visit (PTWS) -------- LACY ALVARADO ([id number]) 1950 F Date Time Provider Department 01/12/18 7:00 AM TILA ALMANZARPT) PTWS Date Time Provider Department Center 01/12/2018 7:00 AM [id number], DIANA (PT)PTWS [facility] Reason for Visit: Physical Therapy [503] [...] by mouth twice * DIVALPROEX 500 MG TABLET,MADNIE* Take 2 tablets by mouth daily* LOSARTAN 25 MG TABLET Take 1 tablet by mouth once d* GLIMEPIRIDE 1 MG TABLET Take one with evening meal OMEPRAZOLE 20 MG CAPSULE,MANDIE* Take 1 capsule by mouth twice* ZMLLFXTH-TXTUCJQRB-LDNFR NIRU * Use 3 Drops in the [...] needs. Patient response monitored throughout treatment. Billing: [facility]: Therapeutic Exercise (33752): 1:1 time: 20 minutes (1 unit: 8-22 mins) Manual Therapy (99699): 1:1 time: 8 minutes (1 unit: 8-22 mins) Modalities Ultrasound (34434) 1:1 time: 15 minutes1 unit: 8-22 mins Total time: 43 minutes Tila Almanzar PT -------- Normal [facility] PROGRESSon 01-12-2018 Protein mass conc HNO ID: [id number] Author: Tila (Pt) Jenelle Service: (none) Author [...] needs. Patient response monitored throughout treatment. Billing: [facility]: Therapeutic Exercise (67619): 1:1 time: 20 minutes (1 unit: 8-22 mins) Manual Therapy (17451): 1:1 time: 8 minutes (1 unit: 8-22 mins) Modalities Ultrasound (57512) 1:1 time: 15 minutes1 unit: 8-22 mins Total time: 43 minutes Tila Almanzar PT Normal [facility] CNOVon 01-11-2018 CNOV Office Visit (PODIWS ) -------- LACY ALVARADO ([id number]) 1950 F Date Time Provider Department 01/11/18 9:10 AM MYNOR FLORES During your visit today, we recorded the following information about you: Mynor Flores DPM 01/11/2018 9:48 AM Signed ? Mynor Flores DPM Department of Podiatry [address] [facility] [address] Dept: [phone] Dept 01/11/2018 Follow Up Podiatric Office Visit: [...] Take 1 capsule by mouth twice daily. 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 Mynor Flores DPM Department of Podiatry [address] [facility] [address] Dept: [phone] Dept 01/11/2018 Follow Up Podiatric Office Visit: [...] Take 1 capsule by mouth twice daily. 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 Patient response monitored throughout treatment. Billing: [facility]: Therapeutic Exercise (90866): 1:1 time: 15 minutes (1 unit: 8-22 mins) Modalities Ultrasound (21538) 1:1 time: 15 minutes1 unit: 8-22 mins Total time: 30 minutes Tila Almanzar PT -------- Normal [facility] PROGRESSon 01-07-2018 Protein mass conc HNO ID: [id number] Author: Tila (Pt) Jenelle Service: (none) Author [...] needs. Patient response monitored throughout treatment. Billing: [facility]: Therapeutic Exercise (83576): 1:1 time: 15 minutes (1 unit: 8-22 mins) Modalities Ultrasound (21983) 1:1 time: 15 minutes1 unit: 8-22 mins Total time: 30 minutes Tila Almanzar PT Normal [facility] CNTHERAPYon 01-05-2018 CNTHERAPY OT/PT/Speech Visit (PTWS) -------- LACY ALVARADO ([id number]) 1950 F Date Time Provider Department 01/05/18 7:00 AM TILA ALMANZAR (PT) PTWS Date Time Provider Department Center 01/05/2018 7:00 AM [id number], DIANA (PT)PTWS [facility] Reason for Visit: PT Eval [747] [...] CAPSULE,MANDIE* Take 1 capsule by mouth twice* NRYTNSAJ-ZGNLMMMUG-GODER NIRU * Use 3 Drops in the [...] of Care: created on 01/05/18 through 03/16/18 Gem in home exercise program. Patient will decrease [...] facilitated with verbal, visual and tactile cuing. Self-Correction Management: 1: Recommended to stop wearing high [...] on clinical presentation, deficits, and needs. Billing: [facility]: Evaluation - Low Complexity (30414) Therapeutic Exercise (17637): 1:1 time: 15 minutes (1 unit: 8-22 mins) Educ Home Mgmt (78616): 1:1 time: 10 minutes (1 unit: 8-22 mins) Total time: 38 minutes Tila Almanzar PT -------- Normal [facility] PROGRESSon 01-05-2018 Protein mass conc HNO ID: [id number] Author: Tila Almanzar Service: (none) Author Type: [...] of Care: created on 01/05/18 through 03/16/18 Gem in home exercise program. Patient will decrease [...] facilitated with verbal, visual and tactile cuing. Self-Correction Management: 1: Recommended to stop wearing high [...] on clinical presentation, deficits, and needs. Billing: [facility]: Evaluation - Low Complexity (35799) Therapeutic Exercise (37560): 1:1 time: 15 minutes (1 unit: 8-22 mins) Educ Home Mgmt (27798): 1:1 time: 10 minutes (1 unit: 8-22 mins) Total time: 38 minutes Tila Almanzar PT Normal [facility] CNOVon 12-09-2017 CNOV Office Visit (PODIWS ) -------- LACY ALVARADO ([id number]) 1950 F Date Time Provider Department 12/09/17 7:55 AM MYNOR FLORES During your visit today, we recorded the following information about you: Mynor Flores DPM 12/09/2017 8:20 AM Signed ? Mynor Flores DPM Department of Podiatry [address] [facility] [address] Dept: [phone] Dept 12/09/2017 Follow Up Podiatric Office Visit: [...] Take 1 capsule by mouth twice daily. 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 Lives with son in [place] REVIEW OF SYSTEMS: CONSTITUTIONAL: No fevers, chills, [...] Mynor Flores DPM Referring Provider: MYNOR FLORES [[id number]] Allergies As of Date: 12/09/2017 Noted Allergy [...] [R09.89] Order(s):PVR ANK PRESS [facility] [[id number]] Order #: [id number] FUTURE CONSULT TO PHYSICAL THERAPY [9032] Order #: [id number]: 1 Prescriptions as of 12/09/2017 Sig: VERAPAMIL [...] by mouth twice * DIVALPROEX 500 MG TABLET,MANIDE* Take 2 tablets by mouth daily* LOSARTAN 25 MG TABLET Take 1 tablet by mouth once d* GLIMEPIRIDE 1 MG TABLET Take one with evening meal OMEPRAZOLE 20 MG CAPSULE,MANDIE* Take 1 capsule by mouth twice* YFNQYNZT-VMSUIFQVP-JOQXS NIRU * Use 3 Drops in the [...] INVALID FOR*07/17/2014 DM2 (diabetes mellitus, type 2) ([facility]) [E11.9] INVALID FOR* More... Thoracic [...] by MYNOR FLORES DPM on 12/09/17 Normal [facility] PROGRESSon 12-09-2017 Protein mass conc HNO ID: [id number] Author: Mynor Flores Service: (none) Author Type: Physician Type: Progress Notes Filed: 12/09/2017 8:20 AM Note Text: ? Mynor Flores DPM Department of Podiatry [address] [place] [address] Dept: [phone] Dept 12/09/2017 Follow Up Podiatric Office Visit: HPI: Lacy Alvarado is a 67 year old female. Patient presents for follow up of [place] Deformity, R. Patient reports constant pain to R heel. Rates pain that is constant burning and achy. Worsened [...] Take 1 capsule by mouth twice daily. 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 Sanitation Worker Cleaning Equipment: RADHA ? Transcribe Date/Time: Oct 14 2017 [...] low transverse - COLONOSCOP W/ OR W/O RUST SPEC 01/12/2013 Colonoscopy - EGD W/O OR [...] 81 MG TAB Take one(1) tablet daily. mfzcfybo-oaexcgvfv-kfjhh cortisone (CORTISPORIN) otic solution Use 3 Drops [...] anxiety) This note was partially generated using [employer] voice recognition system, and there may be some incorrect words, spellings, and punctuation that were not noted in checking the note before saving. Jossue Finley MD Referring Provider: JOSSUE FINLEY [[id number]] Allergies As of Date: 10/15/2017 Noted Allergy [...] 81 MG TABLET Take one(1) tablet daily. OMXGBBMN-OVLZWTTBO-KZIQZ NIRU * Use 3 Drops in the [...] Status:Closed by JOSSUE FINLEY MD on 10/15/17 [facility] PROGRESSon 10-15-2017 Protein mass conc HNO ID: [id number] Author: Jossue Finley Service: (none) Author Type: Physician Type: Progress Notes Filed: 10/15/2017 4:13 PM Note Text: Jossue Finley MD Department of Orthopaedics Orthopaedics [address] [facility] [address] Dept: [phone] Dept October 15, 2017 CHIEF COMPLAINT: new [...] MD Imaging: IMPRESSION: MILD DEGENERATIVE JOINT DISEASE. Sanitation Worker Cleaning Equipment: RADHA ? Transcribe Date/Time: Oct 14 2017 [...] low transverse - COLONOSCOP W/ OR W/O RUST SPEC 01/12/2013 Colonoscopy - EGD W/O OR [...] 81 MG TAB Take one(1) tablet daily. fezvmwfc-dzkozgyvo-oldhn cortisone (CORTISPORIN) otic solution Use 3 Drops [...] anxiety) This note was partially generated using [employer] voice recognition system, and there may be some incorrect words, spellings, and punctuation that were not noted in checking the note before saving. Jossue Finley MD Normal [facility] Protein mass conc HNO ID: [id number] Author: Norma Leone RN Service: (none) Author [...] afterward to clean out scar tissue. Normal [facility] PROGRESSon 10-14-2017 Protein mass conc HNO ID: [id number] Author: John Paul Frias (Tech) Service: (none) Author Type: Research Staff Member Type: Progress Notes Filed: 10/14/2017 9:03 AM [...] Dozier October 14, 2017 9:02 AM Normal [facility] XR KNEE 4V AP/PA BOTH+LAT/ME R LTon [...] No fracture. IMPRESSION: MILD DEGENERATIVE JOINT DISEASE. Sanitation Worker Cleaning Equipment: PSCB Transcribe Date/Time: Oct 14 2017 12:16P Dictated by : CHRIS FRANCIS MD This examination was interpreted and the report reviewed and electronically signed by: CHRIS FRANCIS MD on Oct 14 2017 12:20PM EST [id number] Normal [facility] CNCOon 07-20-2017 CNCO HNO ID: [id number] Author: Mammography Coordinator Service: (none) Author Type: Physician Type: Letter Filed: 07/21/2017 11:31 PM Note Text: July 20, 2017 PID: [id number] Lacy Alvarado [address] [place] [address] Dear Ms. Alvarado, We are pleased to [...] report will be kept on file at [facility] as part of your permanent medical record and are available for your continuing care. Thank you for allowing us to help in meeting your health care needs. Sincerely, Dr. Jaime Interpreting Radiologist [facility] (Normal over 40) Normal [facility] Lipid Panel, [place] 07-20-2 018 Cholesterol in HDL mass conc 49 mg/dL Normal >39 [facility] Comment on above: Result Comment: 40-5 9 mg/dL, Acceptable >59 mg/dL, High: Negative risk factor for coronary heart disease <40 mg/dL, Low: Positive risk factor for coronary heart disease Performed By: #### L IPB #### [facility] datatracker [address], [place] [address] Cholesterol in LDL mass conc 157 mg/dL High <100 [facility] Comment on above: Result Comment: <100 mg/dL, Optimal 100-129 mg/dL, Near optimal/above optimal 130-159 mg/dL, Borderline high 160-189 mg/dL, High >189 mg/dL, Very high Secondary prevention optimal LDL Cholesterol levels are recommended to be < 70 mg/dL Performed By: #### L IPB #### [facility] [address], [place] [address] Cholesterol mass conc 225 mg/dL High <200 [facility] Comment on above: Result Comment: <200 mg/dL, Desirable 200-239 mg/dL, Borderline high >239 mg/dL, High Performed By: #### L IPB #### [facility] [employer] [address], [place] [address] Fasting Time 2 hrs Normal [facility] Comment on above: Performed By: #### L IPB #### [facility] [employer] [address], [place] [address] LDL:HDL Ratio 3.20 High <2.54 [facility] Comment on above: Result Comment: Refe rence: 1. National Cholesterol Education Program ATP III Guideline At-A-Glance Quick Desk Reference: National Heart, Lung, and Blood [place]. National Institutes of Health. 2001: NIH Publication No. 01-3305. 2. An International Atherosclerosis Society position paper: global recommendations for the management of dyslipidemia: executive summary, Atherosclerosis. 2014: 232(2):410-413. Performed By: #### L IPB #### [facility] [employer] [address], [place] [id number] Non HDL Cholesterol 176 mg/dL High <130 [facility] Comment on above: Result Comment: <130 mg/dL, Optimal 130-159 mg/dL, Near optimal/above optimal 160-189 mg/dL, Borderline high 190-219 mg/dL, High >219 mg/dL, Very high Secondary prevention optimal non HDL Cholesterol levels are recommended to be < 100 mg/dL Performed By: #### L IPB #### [facility] [address], [place] [address] TC:HDL Ratio 4.59 Normal <5.10 [facility] Comment on above: Performed By: #### L IPB #### [facility] [employer] [address], [place] [address] Triglyceride mass conc 97 mg/dL Normal <150 [facility] Comment on above: Result Comment: <150 mg/dL, Normal 150-199 mg/dL, Borderline high 200-499 mg/dL, High >499 mg/dL, Very high Performed By: #### L IPB #### [facility] [employer] [address], [place] [address] VLDL Cholesterol 19 mg/dL Normal <30 [facility] Comment on above: Performed By: #### L IPB #### [facility] [employer] [address], [place] [address] [facility] SCREENINGon 07-20-2017 [facility] SCREENING * * *Final Report* * * DATE OF EXAM: Jul 20 2017 8:44AM WOW [id number] - [facility] SCREENING / PROCEDURE REASON: Encounter for screening mammogram for malignant neoplasm of breast * * * * Physician Interpretation * * * * RESULT: #[id number] - [facility] SCREENING BILATERAL DIGITAL SCREENING MAMMOGRAM WITH [...] made to exams dated: 03/11/2016 mammogram - [facility] and 12/19/2014 mammogram - [facility]. There are scattered fibroglandular elements in both breasts. No significant masses, calcifications, or other findings are seen in either breast. There has been no significant interval change. IMPRESSION: NEGATIVE There is no mammographic evidence of malignancy.A 1 year screening mammogram is recommended. Nilay Jaime M.D., cp/madeline:07/20/2017 09:15:21 Market Investigator: Brielle BLANDON)(Raymundo), [facility] letter sent: Normal over 40 Mammogram BI-RADS: 1 Negative Sanitation Worker Cleaning Equipment: Madeline Transcribe Date/Time: Jul 20 2017 8:46A Dictated by: NILAY JAIME MD This examination was interpreted and the report reviewed and electronically signed by: NILAY JAIME MD on Jul 20 2017 9:15AM EST [id number] Normal [facility] CNOVon 02-09-2017 CNOV Office Visit (AGCARDWST) LACY REDDY ([id number]) 1950 FDate Time Provider [id number]/9/17 9:00 AM CHRIS YAO During your visit today, we recorded the following information about you: Pulse Blood pressure Weight 88/minute 136/74 78.1 kgChris Yao MD 02/09/2017 5:28 PM SignedPERTINENT CARDIAC HISTORYChest [facility] IMPRESSION/PLAN:Lacy Alvarado is doing well. She's [...] with treatment plan.This note was generated using [employer] voice recognition system, and there may besome [...] to 118.Electronically Signed:Chris Yao MDOctober 2016 9:06 [facility]: JANAE Fincheferring Provider: SHAD BRISENO [[id number]]Allergies As of Date: 02/09/2017 Noted Allergy ReactionSEASONAL [...] CAPSULE,MANDIE* Take 1 capsule by mouth twice* [id number] NIRU * Use 3 Drops in the [...] INVALID FOR*07/17/2014 DM2 (diabetes mellitus, type 2) ([facility]) [E11.9] INVALID FOR* More... Thoracic [...] SmartForms filed during this visit:Extended VitalsEncounter Number: [id number] Status:Closed by CHRIS YAO MD on 02/09/17 [facility] PROGRESSon 02-09-2017 PROGRESS HNO ID: [id number]: Chris Pelayo: (none)Author Type: PhysicianType: Progress NotesFiled: 02/09/2017 5:28 PMNote Text:PERTINENT CARDIAC HISTORYChest painHLNDLINICAL IMPRESSION/PLAN:Lacy Alvarado is doing well. She's been [...] with treatment plan.This note was generated using [employer] voice recognition system, and theremay be some [...] LDL has improved to 118.Electronically Signed:Chris Yao [facility] 2016 9:06 [facility]: Kasie Pink MD [facility] No Panel Information SARS-CoV-2 & FLU Antigen (Rapid) [facility] Work Phone: S. pyogenes Ag IF Ql (Throat ) S. pyogenes Ag IA Ql (Unsp spec) [facility] Work Phone: Vital Signs Date Time Vital Sign Value Performing Clinician Facility 01-30-2025 14:11-0400 Body height 157.[address] Mayda Garcia MD Work Phone: [facility] 01-30-2025 14:11-0400 Body mass index (BMI) [Ratio] 30.7 kg/m2 Dr. Mayda Garcia MD Work Phone: [facility] 01-30-2025 14:11-0400 Body temperature 98 [degF] Dr. Mayda Garcia MD Work Phone: [facility] 01-30-2025 14:11-0400 Body weight 76.[address] Mayda Garcia MD Work Phone: [facility] 01-30-2025 14:11-0400 Diastolic blood pressure 77 mm[Hg] Dr. Mayda Garcia MD Work Phone: [facility] 01-30-2025 14:11-0400 Heart rate 84 /min Dr. Mayda Garcia MD Work Phone: [facility] 01-30-2025 14:11-0400 Respiratory rate 17 /min Dr. Mayda Garcia MD Work Phone: [facility] 01-30-2025 14:11-0400 SaO2% (BldA) [Mass fraction] 97 % Dr. Mayda Garcia MD Work Phone: [facility] 01-30-2025 14:11-0400 Systolic blood pressure 130 mm[Hg] Dr. Mayda Garcia MD Work Phone: [facility] 01-26-2025 12:34-0400 Body mass index (BMI) [Ratio] 30.7 kg/m2 Dr. Mayda Garcia MD Work Phone: [facility] 01-26-2025 12:34-0400 Body temperature 97.9 [degF] Dr. Mayda Garcia MD Work Phone: [facility] 01-26-2025 12:34-0400 Body weight 76.[address] Mayda Garcia MD Work Phone: [facility] 01-26-2025 12:34-0400 Diastolic blood pressure 83 mm[Hg] Dr. Mayda Garcia MD Work Phone: [facility] 01-26-2025 12:34-0400 Heart rate 78 /min Dr. Mayda Garcia MD Work Phone: [facility] 01-26-2025 12:34-0400 Respiratory rate 16 /min Dr. Mayda Garcia MD Work Phone: [facility] 01-26-2025 12:34-0400 SaO2% (BldA) [Mass fraction] 98 % Dr. Mayda Garcia MD Work Phone: [facility] 01-26-2025 12:34-0400 Systolic blood pressure 144 mm[Hg] Dr. Mayda Garcia MD Work Phone: [facility] 01-23-2025 07:16-0400 Body mass index (BMI) [Ratio] 30.9 kg/m2 Dr. Mayda Garcia MD Work Phone: [facility] 01-23-2025 07:16-0400 Body weight 76.[address] Mayda Garcia MD Work Phone: [facility] 01-23-2025 07:16-0400 Diastolic blood pressure 80 mm[Hg] Dr. Mayda Garcia MD Work Phone: [facility] 01-23-2025 07:16-0400 Heart rate 88 /min Dr. Mayda Garcia MD Work Phone: [facility] 01-23-2025 07:16-0400 Respiratory rate 18 /min Dr. Mayda Garcia MD Work Phone: [facility] 01-23-2025 07:16-0400 SaO2% (BldA) [Mass fraction] 100 % Dr. Mayda Garcia MD Work Phone: [facility] 01-23-2025 07:16-0400 Systolic blood pressure 125 mm[Hg] Dr. Mayda Garcia MD Work Phone: [facility] 01-19-2025 14:33-0400 Body mass index (BMI) [Ratio] 30.6 kg/m2 Dr. Mayda Garcia MD Work Phone: [facility] 01-19-2025 14:33-0400 Body temperature 97.8 [degF] Dr. Mayda Garcia MD Work Phone: [facility] 01-19-2025 14:33-0400 Body weight 75.[address] Mayda Garcia MD Work Phone: [facility] 01-19-2025 14:33-0400 Diastolic blood pressure 82 mm[Hg] Dr. Mayda Garcia MD Work Phone: [facility] 01-19-2025 14:33-0400 Heart rate 84 /min Dr. Mayda Garcia MD Work Phone: [facility] 01-19-2025 14:33-0400 Respiratory rate 16 /min Dr. Mayda Garcia MD Work Phone: [facility] 01-19-2025 14:33-0400 SaO2% (BldA) [Mass fraction] 96 % Dr. Mayda Garcia MD Work Phone: [facility] 01-19-2025 14:33-0400 Systolic blood pressure 154 mm[Hg] Dr. Mayda Garcia MD Work Phone: [facility] 11-16-2024 11:04-0400 Body height 157.[address] Mayda Garcia MD Work Phone: [facility] 11-16-2024 11:04-0400 Body mass index (BMI) [Ratio] 30.8 kg/m2 Dr. Mayda Garcia MD Work Phone: [facility] 11-16-2024 11:04-0400 Body temperature 96.9 [degF] Dr. Mayda Garcia MD Work Phone: [facility] 11-16-2024 11:04-0400 Body weight 76.[address] Mayda Garcia MD Work Phone: [facility] 11-16-2024 11:04-0400 Diastolic blood pressure 68 mm[Hg] Dr. Mayda Garcia MD Work Phone: [facility] 11-16-2024 11:04-0400 Heart rate 97 /min Dr. Mayda Garcia MD Work Phone: [facility] 11-16-2024 11:04-0400 Respiratory rate 16 /min Dr. Mayda Garcia MD Work Phone: [facility] 11-16-2024 11:04-0400 SaO2% (BldA) [Mass fraction] 99 % Dr. Mayda Garcia MD Work Phone: [facility] 11-16-2024 11:04-0400 Systolic blood pressure 120 mm[Hg] Dr. Mayda Garcia MD Work Phone: [facility] 11-14-2024 14:25-0400 Body temperature 97 [degF] Dr. Mayda Garcia MD Work Phone: [facility] 11-14-2024 14:25-0400 Diastolic blood pressure 63 mm[Hg] Dr. Mayda Garcia MD Work Phone: [facility] 11-14-2024 14:25-0400 Heart rate 76 /min Dr. Mayda Garcia MD Work Phone: [facility] 11-14-2024 14:25-0400 Respiratory rate 12 /min Dr. Mayda Garcia MD Work Phone: [facility] 11-14-2024 14:25-0400 SaO2% (BldA) [Mass fraction] 100 % Dr. Mayda Garcia MD Work Phone: [facility] 11-14-2024 14:25-0400 Systolic blood pressure 127 mm[Hg] Dr. Mayda Garcia MD Work Phone: [facility] 11-13-2024 21:42-0400 Body height 157.[address] Mayda Garcia MD Work Phone: [facility] 11-13-2024 21:42-0400 Body mass index (BMI) [Ratio] 31.1 kg/m2 Dr. Mayda Garcia MD Work Phone: [facility] 11-13-2024 21:42-0400 Body weight 77.[address] Mayda Garcia MD Work Phone: [facility] 11-13-2024 21:00-0400 Diastolic blood pressure 82 mm[Hg] Dr. Mayda Garcia MD Work Phone: [facility] 11-13-2024 21:00-0400 Heart rate 89 /min Dr. Mayda Garcia MD Work Phone: [facility] 11-13-2024 21:00-0400 Respiratory rate 28 /min Dr. Mayda Garcia MD Work Phone: [facility] 11-13-2024 21:00-0400 SaO2% (BldA) [Mass fraction] 99 % Dr. Mayda Garcia MD Work Phone: [facility] 11-13-2024 21:00-0400 Systolic blood pressure 139 mm[Hg] Dr. Mayda Garcia MD Work Phone: [facility] 11-13-2024 20:47-0400 Body temperature 98.2 [degF] Dr. Mayda Garcia MD Work Phone: [facility] 11-13-2024 16:23-0400 Body height 157.[address] Mayda Garcia MD Work Phone: [facility] 11-07-2024 11:15-0400 Body height 157.[address] Mayda Garcia MD Work Phone: [facility] 11-07-2024 11:15-0400 Body mass index (BMI) [Ratio] 31.4 kg/m2 Dr. Mayda Garcia MD Work Phone: [facility] 11-07-2024 11:15-0400 Body temperature 98.2 [degF] Dr. Mayda Garcia MD Work Phone: [facility] 11-07-2024 11:15-0400 Body weight 78.[address] Mayda Garcia MD Work Phone: [facility] 11-07-2024 11:15-0400 Diastolic blood pressure 77 mm[Hg] Dr. Mayda Garcia MD Work Phone: [facility] 11-07-2024 11:15-0400 Heart rate 94 /min Dr. Mayda Garcia MD Work Phone: [facility] 11-07-2024 11:15-0400 Respiratory rate 17 /min Dr. Mayda Garcia MD Work Phone: [facility] 11-07-2024 11:15-0400 SaO2% (BldA) [Mass fraction] 99 % Dr. Mayda Garcia MD Work Phone: [facility] 11-07-2024 11:15-0400 Systolic blood pressure 119 mm[Hg] Dr. Mayda Garcia MD Work Phone: [facility] 10-03-2024 11:23-0400 Body temperature 98.6 [degF] Dr. Mayda Garcia MD Work Phone: [facility] 10-03-2024 11:23-0400 Body weight 78.[address] Mayda Garcia MD Work Phone: [facility] 10-03-2024 11:23-0400 Diastolic blood pressure 79 mm[Hg] Dr. Mayda Garcia MD Work Phone: [facility] 10-03-2024 11:23-0400 Heart rate 88 /min Dr. Mayda Garcia MD Work Phone: [facility] 10-03-2024 11:23-0400 Respiratory rate 17 /min Dr. Mayda Garcia MD Work Phone: [facility] 10-03-2024 11:23-0400 SaO2% (BldA) [Mass fraction] 98 % Dr. Mayda Garcia MD Work Phone: [facility] 10-03-2024 11:23-0400 Systolic blood pressure 139 mm[Hg] Dr. Mayda Garcia MD Work Phone: [facility] 09-28-2024 08:21-0400 Body mass index (BMI) [Ratio] 30.9 kg/m2 Dr. Mayda Garcia MD Work Phone: [facility] 09-28-2024 08:21-0400 Body temperature 97.4 [degF] Dr. Mayda Garcia MD Work Phone: [facility] 09-28-2024 08:21-0400 Body weight 76.[address] Mayda Garcia MD Work Phone: [facility] 09-28-2024 08:21-0400 Diastolic blood pressure 77 mm[Hg] Dr. Mayda Garcia MD Work Phone: [facility] 09-28-2024 08:21-0400 Heart rate 78 /min Dr. Mayda Garcia MD Work Phone: [facility] 09-28-2024 08:21-0400 Respiratory rate 18 /min Dr. Mayda Garcia MD Work Phone: [facility] 09-28-2024 08:21-0400 SaO2% (BldA) [Mass fraction] 99 % Dr. Mayda Garcia MD Work Phone: [facility] 09-28-2024 08:21-0400 Systolic blood pressure 148 mm[Hg] Dr. Mayda Garcia MD Work Phone: [facility] 09-21-2024 11:14-0400 Body height 157.[address] Mayda Garcia MD Work Phone: [facility] 09-21-2024 11:14-0400 Body mass index (BMI) [Ratio] 31.1 kg/m2 Dr. Mayda Garcia MD Work Phone: [facility] 09-21-2024 11:14-0400 Body temperature 96 [degF] Dr. Mayda Garcia MD Work Phone: [facility] 09-21-2024 11:14-0400 Body weight 77.[address] Mayda Garcia MD Work Phone: [facility] 09-21-2024 11:14-0400 Diastolic blood pressure 76 mm[Hg] Dr. Mayda Garcia MD Work Phone: [facility] 09-21-2024 11:14-0400 Heart rate 100 /min Dr. Mayda Garcia MD Work Phone: [facility] 09-21-2024 11:14-0400 Respiratory rate 16 /min Dr. Mayda Garcia MD Work Phone: [facility] 09-21-2024 11:14-0400 SaO2% (BldA) [Mass fraction] 97 % Dr. Mayda Garcia MD Work Phone: [facility] 09-21-2024 11:14-0400 Systolic blood pressure 126 mm[Hg] Dr. Mayda Garcia MD Work Phone: [facility] 09-19-2024 07:29-0400 Body mass index (BMI) [Ratio] 0.1 kg/m2 Dr. Mayda Garcia MD Work Phone: [facility] 09-19-2024 07:29-0400 Body weight 0.[address] Mayda Garcia MD Work Phone: [facility] 09-19-2024 07:29-0400 Diastolic blood pressure 82 mm[Hg] Dr. Mayda Garcia MD Work Phone: [facility] 09-19-2024 07:29-0400 Heart rate 91 /min Dr. Mayda Garcia MD Work Phone: [facility] 09-19-2024 07:29-0400 Respiratory rate 18 /min Dr. Mayda Garcia MD Work Phone: [facility] 09-19-2024 07:29-0400 SaO2% (BldA) [Mass fraction] 95 % Dr. Mayda Garcia MD Work Phone: [facility] 09-19-2024 07:29-0400 Systolic blood pressure 125 mm[Hg] Dr. Mayda Garcia MD Work Phone: [facility] 09-16-2024 19:40-0400 Body temperature 98.2 [degF] Dr. Mayda Garcia MD Work Phone: [facility] 09-16-2024 19:40-0400 Diastolic blood pressure 83 mm[Hg] Dr. Mayda Garcia MD Work Phone: [facility] 09-16-2024 19:40-0400 Heart rate 78 /min Dr. Mayda Garcia MD Work Phone: [facility] 09-16-2024 19:40-0400 Respiratory rate 24 /min Dr. Mayda Garcia MD Work Phone: [facility] 09-16-2024 19:40-0400 SaO2% (BldA) [Mass fraction] 99 % Dr. Mayda Garcia MD Work Phone: [facility] 09-16-2024 19:40-0400 Systolic blood pressure 137 mm[Hg] Dr. Mayda Garcia MD Work Phone: [facility] 09-16-2024 15:08-0400 Body height 157.[address] Mayda Garcia MD Work Phone: [facility] 08-10-2024 11:01-0400 Body mass index (BMI) [Ratio] 30.3 kg/m2 Dr. Mayda Garcia MD Work Phone: [facility] 08-10-2024 11:01-0400 Body temperature 97 [degF] Dr. Mayda Garcia MD Work Phone: [facility] 08-10-2024 11:01-0400 Body weight 75.[address] Mayda Garcia MD Work Phone: [facility] 08-10-2024 11:01-0400 Diastolic blood pressure 60 mm[Hg] Dr. Mayda Garcia MD Work Phone: [facility] 08-10-2024 11:01-0400 Heart rate 93 /min Dr. Mayda Garcia MD Work Phone: [facility] 08-10-2024 11:01-0400 Respiratory rate 16 /min Dr. Mayda Garcia MD Work Phone: [facility] 08-10-2024 11:01-0400 SaO2% (BldA) [Mass fraction] 97 % Dr. Mayda Garcia MD Work Phone: [facility] 08-10-2024 11:01-0400 Systolic blood pressure 108 mm[Hg] Dr. Mayda Garcia MD Work Phone: [facility] 07-15-2024 16:16-0400 Body temperature 97.6 [degF] Dr. Mayda Garcia MD Work Phone: [facility] 07-15-2024 16:16-0400 Diastolic blood pressure 79 mm[Hg] Dr. Mayda Garcia MD Work Phone: [facility] 07-15-2024 16:16-0400 Heart rate 98 /min Dr. Mayda Garcia MD Work Phone: [facility] 07-15-2024 16:16-0400 Respiratory rate 18 /min Dr. Mayda Garcia MD Work Phone: [facility] 07-15-2024 16:16-0400 SaO2% (BldA) [Mass fraction] 99 % Dr. Mayda Garcia MD Work Phone: [facility] 07-15-2024 16:16-0400 Systolic blood pressure 161 mm[Hg] Dr. Mayda Garcia MD Work Phone: [facility] 07-15-2024 12:12-0400 Body height 157.[address] Mayda Garcia MD Work Phone: [facility] 07-15-2024 12:12-0400 Body mass index (BMI) [Ratio] 30.6 kg/m2 Dr. Mayda Garcia MD Work Phone: [facility] 07-15-2024 12:12-0400 Body weight 75.[address] Mayda Garcia MD Work Phone: [facility] 07-14-2024 20:20-0400 Body temperature 97.9 [degF] Dr. Mayda Garcia MD Work Phone: [facility] 07-14-2024 20:20-0400 Diastolic blood pressure 80 mm[Hg] Dr. Mayda Garcia MD Work Phone: [facility] 07-14-2024 20:20-0400 Heart rate 85 /min Dr. Mayda Garcia MD Work Phone: [facility] 07-14-2024 20:20-0400 Respiratory rate 17 /min Dr. Mayda Garcia MD Work Phone: [facility] 07-14-2024 20:20-0400 SaO2% (BldA) [Mass fraction] 98 % Dr. Mayda Garcia MD Work Phone: [facility] 07-14-2024 20:20-0400 Systolic blood pressure 107 mm[Hg] Dr. Mayda Garcia MD Work Phone: [facility] 07-14-2024 16:18-0400 Body height [address] Mayda Garcia MD Work Phone: [facility] 07-14-2024 16:18-0400 Body mass index (BMI) [Ratio] 30.7 kg/m2 Dr. Mayda Garcia MD Work Phone: [facility] 07-14-2024 16:18-0400 Body weight 76.[address] Mayda Garcia MD Work Phone: [facility] 07-05-2024 10:56-0500 Body mass index (BMI) [Ratio] 30.7 kg/m2 Dr. Mayda Garcia MD Work Phone: [facility] 07-05-2024 10:56-0500 Body temperature 98.6 [degF] Dr. Mayda Garcia MD Work Phone: [facility] 07-05-2024 10:56-0500 Body weight 76.[address] Mayda Garcia MD Work Phone: [facility] 07-05-2024 10:56-0500 Diastolic blood pressure 70 mm[Hg] Dr. Mayda Garcia MD Work Phone: [facility] 07-05-2024 10:56-0500 Heart rate 104 /min Dr. Mayda Garcia MD Work Phone: [facility] 07-05-2024 10:56-0500 Respiratory rate 17 /min Dr. Mayda Garcia MD Work Phone: [facility] 07-05-2024 10:56-0500 SaO2% (BldA) [Mass fraction] 98 % Dr. Mayda Garcia MD Work Phone: [facility] 07-05-2024 10:56-0500 Systolic blood pressure 130 mm[Hg] Dr. Mayda Garcia MD Work Phone: [facility] 05-20-2024 09:36-0500 Body mass index (BMI) [Ratio] 30.9 kg/m2 Dr. Mayda Garcia MD Work Phone: [facility] 05-20-2024 09:36-0500 Body temperature 97.6 [degF] Dr. Mayda Garcia MD Work Phone: [facility] 05-20-2024 09:36-0500 Body weight 76.[address] Mayda Garcia MD Work Phone: [facility] 05-20-2024 09:36-0500 Diastolic blood pressure 78 mm[Hg] Dr. Mayda Garcia MD Work Phone: [facility] 05-20-2024 09:36-0500 Heart rate 98 /min Dr. Mayda Garcia MD Work Phone: [facility] 05-20-2024 09:36-0500 Respiratory rate 16 /min Dr. Mayda Garcia MD Work Phone: [facility] 05-20-2024 09:36-0500 SaO2% (BldA) [Mass fraction] 99 % Dr. Mayda Garcia MD Work Phone: [facility] 05-20-2024 09:36-0500 Systolic blood pressure 142 mm[Hg] Dr. Mayda Garcia MD Work Phone: [facility] 05-16-2024 09:40-0500 Body mass index (BMI) [Ratio] 31.6 kg/m2 Dr. Mayda Garcia MD Work Phone: [facility] 05-16-2024 09:40-0500 Body temperature 98.4 [degF] Dr. Mayda Garcia MD Work Phone: [facility] 05-16-2024 09:40-0500 Body weight 78.[address] Mayda Garcia MD Work Phone: [facility] 05-16-2024 09:40-0500 Diastolic blood pressure 70 mm[Hg] Dr. Mayda Garcia MD Work Phone: [facility] 05-16-2024 09:40-0500 Heart rate 89 /min Dr. Mayda Garcia MD Work Phone: [facility] 05-16-2024 09:40-0500 Respiratory rate 16 /min Dr. Mayda Garcia MD Work Phone: [facility] 05-16-2024 09:40-0500 SaO2% (BldA) [Mass fraction] 99 % Dr. Mayda Garcia MD Work Phone: [facility] 05-16-2024 09:40-0500 Systolic blood pressure 116 mm[Hg] Dr. Mayda Garcia MD Work Phone: [facility] 04-21-2024 10:56-0500 Body mass index (BMI) [Ratio] 30.9 kg/m2 Dr. Mayda Garcia MD Work Phone: [facility] 04-21-2024 10:56-0500 Body temperature 98.4 [degF] Dr. Mayda Garcia MD Work Phone: [facility] 04-21-2024 10:56-0500 Body weight 76.[address] Mayda Garcia MD Work Phone: [facility] 04-21-2024 10:56-0500 Diastolic blood pressure 72 mm[Hg] Dr. Mayda Garcia MD Work Phone: [facility] 04-21-2024 10:56-0500 Heart rate 111 /min Dr. Mayda Garcia MD Work Phone: [facility] 04-21-2024 10:56-0500 Respiratory rate 17 /min Dr. Mayda Garcia MD Work Phone: [facility] 04-21-2024 10:56-0500 SaO2% (BldA) [Mass fraction] 97 % Dr. Mayda Garcia MD Work Phone: [facility] 04-21-2024 10:56-0500 Systolic blood pressure 130 mm[Hg] Dr. Mayda Garcia MD Work Phone: [facility] 04-20-2024 12:38-0500 Body weight 76.[address] Mayda Garcia MD Work Phone: [facility] 04-20-2024 12:38-0500 Heart rate 106 /min Dr. Mayda Garcia MD Work Phone: [facility] 04-20-2024 12:38-0500 SaO2% (BldA) [Mass fraction] 97 % Dr. Mayda Garcia MD Work Phone: [facility] 04-19-2024 10:25-0500 Body mass index (BMI) [Ratio] 30.9 kg/m2 Dr. Mayda Garcia MD Work Phone: [facility] 04-19-2024 10:25-0500 Body weight 76.[address] Mayda Garcia MD Work Phone: [facility] 04-19-2024 10:25-0500 Diastolic blood pressure 62 mm[Hg] Dr. Mayda Garcia MD Work Phone: [facility] 04-19-2024 10:25-0500 Heart rate 97 /min Dr. Mayda Garcia MD Work Phone: [facility] 04-19-2024 10:25-0500 Respiratory rate 16 /min Dr. Mayda Garcia MD Work Phone: [facility] 04-19-2024 10:25-0500 Systolic blood pressure 115 mm[Hg] Dr. Mayda Garcia MD Work Phone: [facility] 08-03-2023 00:11-0400 Body weight 75.[address] Mayda Garcia Work Phone: [facility] 07-29-2023 08:29-0400 Body height 157.[address] Mayda Garcia Work Phone: [facility] 07-29-2023 08:29-0400 Body weight 75.[address] Mayda Garcia Work Phone: [facility] 07-23-2023 10:50-0400 Body height 157.[address] Mayda Garcia Work Phone: [facility] 07-23-2023 10:50-0400 Body mass index (BMI) [Ratio] 30.2 kg/m2 Dr. Mayda Garcia Work Phone: [facility] 07-23-2023 10:50-0400 Body temperature 97.8 [degF] Dr. Mayda Garica Work Phone: [facility] 07-23-2023 10:50-0400 Body weight 74.[address] Mayda Garcia Work Phone: [facility] 07-23-2023 10:50-0400 Diastolic blood pressure 76 mm[Hg] Dr. Mayda Garcia Work Phone: [facility] 07-23-2023 10:50-0400 Heart rate 96 /min Dr. Mayda Garcia Work Phone: [facility] 07-23-2023 10:50-0400 Respiratory rate 17 /min Dr. Mayda Garcia Work Phone: [facility] 07-23-2023 10:50-0400 SaO2% (BldA) [Mass fraction] 99 % Dr. Mayda Garcia Work Phone: [facility] 07-23-2023 10:50-0400 Systolic blood pressure 118 mm[Hg] Dr. Mayda Garcia Work Phone: [facility] 07-20-2023 13:17-0400 Body mass index (BMI) [Ratio] 30.9 kg/m2 Dr. Mayda Garcia Work Phone: [facility] 07-20-2023 13:17-0400 Body temperature 97.8 [degF] Dr. Mayda Garcia Work Phone: [facility] 07-20-2023 13:17-0400 Body weight 76.[address] Mayda Garcia Work Phone: [facility] 07-20-2023 13:17-0400 Diastolic blood pressure 68 mm[Hg] Dr. Mayda Garcia Work Phone: [facility] 07-20-2023 13:17-0400 Heart rate 88 /min Dr. Mayda Garcia Work Phone: [facility] 07-20-2023 13:17-0400 Respiratory rate 17 /min Dr. Mayda Garcia Work Phone: [facility] 07-20-2023 13:17-0400 SaO2% (BldA) [Mass fraction] 99 % Dr. Mayda Garcia Work Phone: [facility] 07-20-2023 13:17-0400 Systolic blood pressure 118 mm[Hg] Dr. Mayda Garcia Work Phone: [facility] 07-03-2023 00:06-0500 Body weight 73.[address] Mayda Garcia Work Phone: [facility] 07-01-2023 09:13-0500 Body height 157.[address] Mayda Garcia Work Phone: [facility] 07-01-2023 09:13-0500 Body weight 73.[address] Mayda Garcia Work Phone: [facility] 06-17-2023 10:16-0500 Body height 157.[address] Mayda Garcia Work Phone: [facility] 06-17-2023 10:16-0500 Body mass index (BMI) [Ratio] 28.8 kg/m2 Dr. Mayda Garcia Work Phone: [facility] 06-17-2023 10:16-0500 Body temperature 97.4 [degF] Dr. Mayda Garcia Work Phone: [facility] 06-17-2023 10:16-0500 Body weight 71.[address] Mayda Garcia Work Phone: [facility] 06-17-2023 10:16-0500 Diastolic blood pressure 82 mm[Hg] Dr. Mayda Garcia Work Phone: [facility] 06-17-2023 10:16-0500 Heart rate 93 /min Dr. Mayda Garcia Work Phone: [facility] 06-17-2023 10:16-0500 Respiratory rate 16 /min Dr. Mayda Garcia Work Phone: [facility] 06-17-2023 10:16-0500 SaO2% (BldA) [Mass fraction] 98 % Dr. Mayda Garcia Work Phone: [facility] 06-17-2023 10:16-0500 Systolic blood pressure 126 mm[Hg] Dr. Mayda Garcai Work Phone: [facility] 06-10-2023 07:48-0500 Body mass index (BMI) [Ratio] 29.4 kg/m2 Dr. Mayda Garcia Work Phone: [facility] 06-10-2023 07:48-0500 Body temperature 98 [degF] Dr. Mayda Garcia Work Phone: [facility] 06-10-2023 07:48-0500 Body weight 73.[address] Mayda Garcia Work Phone: [facility] 06-10-2023 07:48-0500 Diastolic blood pressure 90 mm[Hg] Dr. Mayda Garcia Work Phone: [facility] 06-10-2023 07:48-0500 Heart rate 79 /min Dr. Mayda Garcia Work Phone: [facility] 06-10-2023 07:48-0500 Respiratory rate 20 /min Dr. Mayda Garcia Work Phone: [facility] 06-10-2023 07:48-0500 SaO2% (BldA) [Mass fraction] 99 % Dr. Mayda Garcia Work Phone: [facility] 06-10-2023 07:48-0500 Systolic blood pressure 171 mm[Hg] Dr. Mayda Garcia Work Phone: [facility] 06-01-2023 10:05-0500 Body mass index (BMI) [Ratio] 29.8 kg/m2 Dr. Mayda Garcia Work Phone: [facility] 06-01-2023 10:05-0500 Body weight 73.[address] Mayda Garcia Work Phone: [facility] 06-01-2023 10:05-0500 Diastolic blood pressure 64 mm[Hg] Dr. Mayda Garcia Work Phone: [facility] 06-01-2023 10:05-0500 Systolic blood pressure 104 mm[Hg] Dr. Mayda Garcia Work Phone: [facility] 06-01-2023 09:57-0500 Heart rate 101 /min Dr. Mayda Garcia Work Phone: [facility] 06-01-2023 09:57-0500 SaO2% (BldA) [Mass fraction] 97 % Dr. Mayda Garcia Work Phone: [facility] 06-01-2023 09:50-0500 Body height 157.[address] Mayda Garcia Work Phone: [facility] 05-18-2023 10:38-0500 Body temperature 98 [degF] Dr. Mayda Garcia Work Phone: [facility] 05-18-2023 10:38-0500 Diastolic blood pressure 70 mm[Hg] Dr. Mayda Garcia Work Phone: [facility] 05-18-2023 10:38-0500 Heart rate 70 /min Dr. Mayda Garcia Work Phone: [facility] 05-18-2023 10:38-0500 Respiratory rate 15 /min Dr. Mayda Garcia Work Phone: [facility] 05-18-2023 10:38-0500 SaO2% (BldA) [Mass fraction] 98 % Dr. Mayda Garcia Work Phone: [facility] 05-18-2023 10:38-0500 Systolic blood pressure 120 mm[Hg] Dr. Mayda Garcia Work Phone: [facility] 04-16-2023 11:43-0500 Body temperature 97.7 [degF] Dr. Mayda Garcia Work Phone: [facility] 04-16-2023 11:43-0500 Body weight 75.[address] Mayda Garcia Work Phone: [facility] 04-16-2023 11:43-0500 Diastolic blood pressure 70 mm[Hg] Dr. Mayda Garcia Work Phone: [facility] 04-16-2023 11:43-0500 Heart rate 99 /min Dr. Mayda Garcia Work Phone: [facility] 04-16-2023 11:43-0500 Respiratory rate 16 /min Dr. Mayda Garcia Work Phone: [facility] 04-16-2023 11:43-0500 SaO2% (BldA) [Mass fraction] 99 % Dr. Mayda Garcia Work Phone: [facility] 04-16-2023 11:43-0500 Systolic blood pressure 130 mm[Hg] Dr. Mayda Garcia Work Phone: [facility] 03-19-2023 09:50-0500 Body height 157.[address] Mayda Garcia Work Phone: [facility] 03-19-2023 09:50-0500 Body mass index (BMI) [Ratio] 29.8 kg/m2 Dr. Mayda Garcia Work Phone: [facility] 03-19-2023 09:50-0500 Body weight 73.[address] Mayda Garcia Work Phone: [facility] 03-19-2023 09:50-0500 Diastolic blood pressure 60 mm[Hg] Dr. Mayda Garcia Work Phone: [facility] 03-19-2023 09:50-0500 Heart rate 92 /min Dr. Mayda Garcia Work Phone: [facility] 03-19-2023 09:50-0500 Respiratory rate 16 /min Dr. Mayda Garcia Work Phone: [facility] 03-19-2023 09:50-0500 Systolic blood pressure 98 mm[Hg] Dr. Mayda Garcia Work Phone: [facility] 03-16-2023 14:11-0500 Body mass index (BMI) [Ratio] 30.4 kg/m2 Dr. Mayda Garcia Work Phone: [facility] 03-16-2023 [id number] Body temperature 97.1 [degF] Dr. Mayda Garcia Work Phone: [facility] 03-16-2023 14:11-0500 Body weight 75.[address] Mayda Garcia Work Phone: [facility] 03-16-2023 14:11-0500 Diastolic blood pressure 62 mm[Hg] Dr. Mayda Garcia Work Phone: [facility] 03-16-2023 14:11-0500 Heart rate 102 /min Dr. Mayda Garcia Work Phone: [facility] 03-16-2023 14:11-0500 Respiratory rate 15 /min Dr. Mayda Garcia Work Phone: [facility] 03-16-2023 [id number] SaO2% (BldA) [Mass fraction] 97 % Dr. Mayda Garcia Work Phone: [facility] 03-16-2023 14:11-0500 Systolic blood pressure 118 mm[Hg] Dr. Mayda Garcia Work Phone: [facility] 03-16-2023 13:21-0500 Body mass index (BMI) [Ratio] 30.5 kg/m2 Dr. Mayda Garcia Work Phone: [facility] 03-16-2023 13:21-0500 Body temperature 98.2 [degF] Dr. Mayda Garcia Work Phone: [facility] 03-16-2023 13:21-0500 Body weight 75.[address] Mayda Garcia Work Phone: [facility] 03-16-2023 13:21-0500 Diastolic blood pressure 63 mm[Hg] Dr. Mayda Garcia Work Phone: [facility] 03-16-2023 13:21-0500 Heart rate 82 /min Dr. Mayda Garcia Work Phone: [facility] 03-16-2023 13:21-0500 Respiratory rate 14 /min Dr. Mayda Garcia Work Phone: [facility] 03-16-2023 13:21-0500 SaO2% (BldA) [Mass fraction] 99 % Dr. Mayda Garcia Work Phone: [facility] 03-16-2023 13:21-0500 Systolic blood pressure 120 mm[Hg] Dr. Mayda Garcia Work Phone: [facility] 02-18-2023 10:07-0400 Body height 157.[address] Mayda Garcia Work Phone: [facility] 02-18-2023 10:07-0400 Body mass index (BMI) [Ratio] 30.5 kg/m2 Dr. Mayda Garcia Work Phone: [facility] 02-18-2023 10:07-0400 Body weight 75.[address] Mayda Garcia Work Phone: [facility] 02-18-2023 10:07-0400 Diastolic blood pressure 76 mm[Hg] Dr. Mayda Garcia Work Phone: [facility] 02-18-2023 10:07-0400 Heart rate 103 /min Dr. Mayda Garcia Work Phone: [facility] 02-18-2023 10:07-0400 Respiratory rate 18 /min Dr. Mayda Garcia Work Phone: [facility] 02-18-2023 10:07-0400 Systolic blood pressure 114 mm[Hg] Dr. Mayda Garcia Work Phone: [facility] 02-11-2023 11:01-0400 Body mass index (BMI) [Ratio] 29.5 kg/m2 Dr. Mayda Garcia Work Phone: [facility] 02-11-2023 11:01-0400 Body temperature 98.4 [degF] Dr. Mayda Garcia Work Phone: [facility] 02-11-2023 11:01-0400 Body weight 73.[address] Mayda Garcia Work Phone: [facility] 02-11-2023 11:01-0400 Diastolic blood pressure 70 mm[Hg] Dr. Mayda Garcia Work Phone: [facility] 02-11-2023 11:01-0400 Heart rate 90 /min Dr. Mayda Garcia Work Phone: [facility] 02-11-2023 11:01-0400 Respiratory rate 17 /min Dr. Mayda Garcia Work Phone: [facility] 02-11-2023 11:01-0400 SaO2% (BldA) [Mass fraction] 96 % Dr. Mayda Garcia Work Phone: [facility] 02-11-2023 11:01-0400 Systolic blood pressure 110 mm[Hg] Dr. Mayda Garcia Work Phone: [facility] 02-04-2023 10:53-0400 Body mass index (BMI) [Ratio] 30.5 kg/m2 Dr. Mayda Garcia Work Phone: [facility] 02-04-2023 10:53-0400 Body temperature 97.6 [degF] Dr. Mayda Garcia Work Phone: [facility] 02-04-2023 10:53-0400 Body weight 75.[address] Mayda Garcia Work Phone: [facility] 02-04-2023 10:53-0400 Diastolic blood pressure 80 mm[Hg] Dr. Mayda Garcia Work Phone: [facility] 02-04-2023 10:53-0400 Heart rate 91 /min Dr. Mayda Garcia Work Phone: [facility] 02-04-2023 10:53-0400 Respiratory rate 16 /min Dr. Mayda Garcia Work Phone: [facility] 02-04-2023 10:53-0400 SaO2% (BldA) [Mass fraction] 98 % Dr. Mayda Garcia Work Phone: [facility] 02-04-2023 10:53-0400 Systolic blood pressure 124 mm[Hg] Dr. Mayda Garcia Work Phone: [facility] 01-26-2023 11:37-0400 Body temperature 98.3 [degF] Dr. Mayda Garcia Work Phone: [facility] 01-26-2023 11:37-0400 Diastolic blood pressure 67 mm[Hg] Dr. Mayda Garcia Work Phone: [facility] 01-26-2023 11:37-0400 Heart rate 86 /min Dr. Mayda Garcia Work Phone: [facility] 01-26-2023 11:37-0400 Respiratory rate 18 /min Dr. Mayda Garcia Work Phone: [facility] 01-26-2023 11:37-0400 SaO2% (BldA) [Mass fraction] 98 % Dr. Mayda Garcia Work Phone: [facility] 01-26-2023 11:37-0400 Systolic blood pressure 107 mm[Hg] Dr. Mayda Garcia Work Phone: [facility] 01-24-2023 06:00-0400 Body mass index (BMI) [Ratio] 31.3 kg/m2 Dr. Mayda Garcia Work Phone: [facility] 01-24-2023 06:00-0400 Body weight 77.[address] Mayda Garcia Work Phone: [facility] 01-22-2023 06:03-0400 Inhaled oxygen flow rate 2 L/min Dr. Mayda Garcia Work Phone: [facility] 01-21-2023 16:06-0400 Body height 157.[address] Mayda Garcia Work Phone: [facility] 01-11-2023 07:00-0400 Body temperature 98.29 [degF] Azam Rose MD Work Phone: [facility] 01-11-2023 07:00-0400 Diastolic blood pressure 62 mm[Hg] Azam Rose MD Work Phone: [facility] 01-11-2023 07:00-0400 Heart rate 81 /min Azam Rose MD Work Phone: [facility] 01-11-2023 07:00-0400 Respiratory rate 16 /min Azam Rose MD Work Phone: [facility] [employer] 01-11-2023 07:00-0400 SaO2% (BldA) [Mass fraction] 96 % Azam Rose MD Work Phone: [facility] 01-11-2023 07:00-0400 Systolic blood pressure 112 mm[Hg] Azam Rose MD Work Phone: [facility] [employer] 01-11-2023 04:43-0400 Body mass index (BMI) [Ratio] 31.21 kg/m2 Azam Rose MD Work Phone: [facility] [employer] 01-11-2023 04:43-0400 Body weight 77.4 kg Azam Rose MD Work Phone: [facility] [employer] 01-02-2023 08:47-0400 Body height 157.5 cm Azam Rose MD Work Phone: [facility] [employer] 01-01-2023 10:48-0400 SaO2% (BldA) [Mass fraction] 99.2 % Azam Rose MD Work Phone: [facility] 12-23-2022 10:18-0400 Body height 157.5 cm Azam Rose MD Work Phone: [facility] 12-23-2022 10:18-0400 Body mass index (BMI) [Ratio] 31.17 kg/m2 Azam Rose MD Work Phone: [facility] 12-23-2022 10:18-0400 Body weight 77.29 kg Azam Rose MD Work Phone: [facility] 12-23-2022 10:18-0400 Diastolic blood pressure 78 mm[Hg] Azam Rose MD Work Phone: [facility] 12-23-2022 10:18-0400 Heart rate 91 /min Azam Rose MD Work Phone: [facility] 12-23-2022 10:18-0400 Systolic blood pressure 140 mm[Hg] Azam Rose MD Work Phone: [facility] 12-19-2022 14:00-0400 Body temperature 97.2 [degF] Dr. Mayda Garcia Work Phone: [facility] 12-19-2022 14:00-0400 Diastolic blood pressure 69 mm[Hg] Dr. Mayda Garcia Work Phone: [facility] 12-19-2022 14:00-0400 Heart rate 92 /min Dr. Mayda Garcia Work Phone: [facility] 12-19-2022 14:00-0400 Respiratory rate 18 /min Dr. Mayda Garcia Work Phone: [facility] 12-19-2022 14:00-0400 SaO2% (BldA) [Mass fraction] 100 % Dr. Mayda Garcia Work Phone: [facility] 12-19-2022 14:00-0400 Systolic blood pressure 140 mm[Hg] Dr. Mayda Garcia Work Phone: [facility] 12-18-2022 10:26-0400 Body height 157.[address] Mayda Garcia Work Phone: [facility] 12-18-2022 10:26-0400 Body mass index (BMI) [Ratio] 31.4 kg/m2 Dr. Mayda Garcia Work Phone: [facility] 12-18-2022 10:26-0400 Body weight 77.[address] Mayda Garcia Work Phone: [facility] 12-18-2022 10:00-0400 Respiratory rate 18 /min Dr. Mayda Garcia Work Phone: [facility] 12-18-2022 09:15-0400 Body temperature 98.1 [degF] Dr. Mayda Garcia Work Phone: [facility] 12-18-2022 09:15-0400 Diastolic blood pressure 72 mm[Hg] Dr. Mayda Garcia Work Phone: [facility] 12-18-2022 09:15-0400 Heart rate 74 /min Dr. Mayda Garcia Work Phone: [facility] 12-18-2022 09:15-0400 SaO2% (BldA) [Mass fraction] 95 % Dr. Mayda Garcia Work Phone: [facility] [facility] 12-18-2022 09:15-0400 Systolic blood pressure 148 mm[Hg] Dr. Mayda Garcia Work Phone: [facility] 12-18-2022 05:23-0400 Body height 187.[address] Mayda Garcia Work Phone: [facility] 12-18-2022 05:23-0400 Body mass index (BMI) [Ratio] 22.4 kg/m2 Dr. Mayda Garcia Work Phone: [facility] 12-18-2022 05:23-0400 Body weight 79.[address] Mayda Garcia Work Phone: [facility] 12-11-2022 14:43-0400 Body mass index (BMI) [Ratio] 30.9 kg/m2 Dr. Mayda Garcia Work Phone: [facility] 12-11-2022 14:43-0400 Body temperature 98.3 [degF] Dr. Mayda Garcia Work Phone: [facility] 12-11-2022 14:43-0400 Body weight 76.[address] Mayda Garcia Work Phone: [facility] 12-11-2022 14:43-0400 Diastolic blood pressure 76 mm[Hg] Dr. Mayda Garcia Work Phone: [facility] 12-11-2022 14:43-0400 Heart rate 97 /min Dr. Mayda Garcia Work Phone: [facility] 12-11-2022 14:43-0400 Respiratory rate 16 /min Dr. Mayda Garcia Work Phone: [facility] 12-11-2022 14:43-0400 SaO2% (BldA) [Mass fraction] 97 % Dr. Mayad Garcia Work Phone: [facility] 12-11-2022 14:43-0400 Systolic blood pressure 124 mm[Hg] Dr. Mayda Garcia Work Phone: [facility] 11-19-2022 14:56-0400 Body mass index (BMI) [Ratio] 31.7 kg/m2 Dr. Mayda Garcia Work Phone: [facility] 11-19-2022 14:56-0400 Body temperature 97.7 [degF] Dr. Mayda Garcia Work Phone: [facility] 11-19-2022 14:56-0400 Body weight 78.[address] Mayda Garcia Work Phone: [facility] 11-19-2022 14:56-0400 Diastolic blood pressure 78 mm[Hg] Dr. Mayda Garcia Work Phone: [facility] 11-19-2022 14:56-0400 Heart rate 90 /min Dr. Mayda Garcia Work Phone: [facility] 11-19-2022 14:56-0400 Respiratory rate 14 /min Dr. Mayda Garcia Work Phone: [facility] 11-19-2022 14:56-0400 SaO2% (BldA) [Mass fraction] 98 % Dr. Mayda Garcia Work Phone: [facility] 11-19-2022 14:56-0400 Systolic blood pressure 130 mm[Hg] Dr. Mayda Garcia Work Phone: [facility] 10-10-2022 11:04-0400 Body height 157.[address] Mayda Garcia Work Phone: [facility] 10-10-2022 11:04-0400 Body mass index (BMI) [Ratio] 31.4 kg/m2 Dr. Mayda Garcia Work Phone: [facility] 10-10-2022 11:04-0400 Body weight 78.[address] Mayda Garcia Work Phone: [facility] 10-03-2022 10:42-0400 Body height 157.[address] Mayda Garcia Work Phone: [facility] 10-03-2022 10:42-0400 Body mass index (BMI) [Ratio] 31.7 kg/m2 Dr. Mayda Garcia Work Phone: [facility] 10-03-2022 10:42-0400 Body temperature 97.1 [degF] Dr. Mayda Garcia Work Phone: [facility] 10-03-2022 10:42-0400 Body weight 78.[address] Mayda Garcia Work Phone: [facility] 10-03-2022 10:42-0400 Diastolic blood pressure 84 mm[Hg] Dr. Mayda Garcia Work Phone: [facility] 10-03-2022 10:42-0400 Heart rate 112 /min Dr. Mayda Garcia Work Phone: [facility] 10-03-2022 10:42-0400 Respiratory rate 18 /min Dr. Mayda Garcia Work Phone: [facility] 10-03-2022 10:42-0400 SaO2% (BldA) [Mass fraction] 98 % Dr. Mayda Garcia Work Phone: [facility] 10-03-2022 10:42-0400 Systolic blood pressure 138 mm[Hg] Dr. Mayda Garcia Work Phone: [facility] 10-02-2022 11:41-0400 Body mass index (BMI) [Ratio] 31.5 kg/m2 Dr. Mayda Garcia Work Phone: [facility] 10-02-2022 11:41-0400 Body temperature 98 [degF] Dr. Mayda Garcia Work Phone: [facility] 10-02-2022 11:41-0400 Body weight 78.[address] Mayda Garcia Work Phone: [facility] 10-02-2022 11:41-0400 Diastolic blood pressure 60 mm[Hg] Dr. Mayda Garcia Work Phone: [facility] 10-02-2022 11:41-0400 Heart rate 91 /min Dr. Mayda Garcia Work Phone: [facility] 10-02-2022 11:41-0400 Respiratory rate 17 /min Dr. Mayda Garcia Work Phone: [facility] 10-02-2022 11:41-0400 SaO2% (BldA) [Mass fraction] 97 % Dr. Mayda Garcia Work Phone: [facility] 10-02-2022 11:41-0400 Systolic blood pressure 118 mm[Hg] Dr. Mayda Garcia Work Phone: [facility] 08-22-2022 15:19-0400 Body mass index (BMI) [Ratio] 32.1 kg/m2 Dr. Mayda Garcia Work Phone: [facility] 08-22-2022 15:19-0400 Body temperature 98 [degF] Dr. Mayda Garcia Work Phone: [facility] 08-22-2022 15:19-0400 Body weight 79.[address] Mayda Garcia Work Phone: [facility] 08-22-2022 15:19-0400 Diastolic blood pressure 72 mm[Hg] Dr. Mayda Garcia Work Phone: [facility] 08-22-2022 15:19-0400 Heart rate 89 /min Dr. Mayda Garcia Work Phone: [facility] 08-22-2022 15:19-0400 Respiratory rate 16 /min Dr. Mayda Garcia Work Phone: [facility] 08-22-2022 15:19-0400 SaO2% (BldA) [Mass fraction] 97 % Dr. Mayda Garcia Work Phone: [facility] 08-22-2022 15:19-0400 Systolic blood pressure 130 mm[Hg] Dr. Mayda Garcia Work Phone: [facility] 08-14-2022 01:11-0400 Diastolic blood pressure 81 mm[Hg] Dr. Mayda Garcia Work Phone: [facility] 08-14-2022 01:11-0400 Heart rate 87 /min Dr. Mayda Garcia Work Phone: [facility] 08-14-2022 01:11-0400 Respiratory rate 17 /min Dr. Mayda Garcia Work Phone: [facility] 08-14-2022 01:11-0400 SaO2% (BldA) [Mass fraction] 100 % Dr. Mayda Garcia Work Phone: [facility] 08-14-2022 01:11-0400 Systolic blood pressure 163 mm[Hg] Dr. Mayda Garcia Work Phone: [facility] 08-13-2022 21:57-0400 Body height 157.[address] Mayda Garcia Work Phone: [facility] 08-13-2022 21:57-0400 Body mass index (BMI) [Ratio] 35.2 kg/m2 Dr. Mayda Garcia Work Phone: [facility] 08-13-2022 21:57-0400 Body temperature 98.2 [degF] Dr. Mayda Garcia Work Phone: [facility] 08-13-2022 21:57-0400 Body weight 87.[address] Mayda Garcia Work Phone: [facility] 06-30-2022 10:56-0500 Body mass index (BMI) [Ratio] 32.1 kg/m2 Dr. Mayda Garcia Work Phone: [facility] 06-30-2022 10:56-0500 Body temperature 98.8 [degF] Dr. Mayda Garcia Work Phone: [facility] 06-30-2022 10:56-0500 Body weight 79.[address] Mayda Garcia Work Phone: [facility] 06-30-2022 10:56-0500 Diastolic blood pressure 80 mm[Hg] Dr. Mayda Garcia Work Phone: [facility] 06-30-2022 10:56-0500 Heart rate 87 /min Dr. Mayda Garcia Work Phone: [facility] 06-30-2022 10:56-0500 Respiratory rate 16 /min Dr. Mayda Garcia Work Phone: [facility] 06-30-2022 10:56-0500 SaO2% (BldA) [Mass fraction] 99 % Dr. Mayda Garcia Work Phone: [facility] 06-30-2022 10:56-0500 Systolic blood pressure 128 mm[Hg] Dr. Mayda Garcia Work Phone: [facility] 06-09-2022 13:30-0500 Body mass index (BMI) [Ratio] 35.6 kg/m2 Dr. Mayda Garcia Work Phone: [facility] 06-09-2022 13:30-0500 Body temperature 98.5 [degF] Dr. Mayda Garcia Work Phone: [facility] 06-09-2022 13:30-0500 Body weight 88.[address] Mayda Garcia Work Phone: [facility] 06-09-2022 13:30-0500 Diastolic blood pressure 74 mm[Hg] Dr. Mayda Garcia Work Phone: [facility] 06-09-2022 13:30-0500 Heart rate 102 /min Dr. Mayda Garcia Work Phone: [facility] 06-09-2022 13:30-0500 Respiratory rate 16 /min Dr. Mayda Garcia Work Phone: [facility] 06-09-2022 13:30-0500 SaO2% (BldA) [Mass fraction] 96 % Dr. Mayda Garcia Work Phone: [facility] 06-09-2022 13:30-0500 Systolic blood pressure 136 mm[Hg] Dr. Mayda Garcia Work Phone: [facility] 06-07-2022 17:41-0500 Body height 157.[address] Mayda Garcia Work Phone: [facility] 06-07-2022 17:41-0500 Body mass index (BMI) [Ratio] 35.6 kg/m2 Dr. Mayda Garcia Work Phone: [facility] 06-07-2022 17:41-0500 Body temperature 97.9 [degF] Dr. Mayda Garcia Work Phone: [facility] 06-07-2022 17:41-0500 Body weight 88.[address] Mayda Garcia Work Phone: [facility] 06-07-2022 17:41-0500 Diastolic blood pressure 85 mm[Hg] Dr. Mayda Garcia Work Phone: [facility] 06-07-2022 17:41-0500 Heart rate 90 /min Dr. Mayda Garcia Work Phone: [facility] 06-07-2022 17:41-0500 Respiratory rate 18 /min Dr. Mayda Garcia Work Phone: [facility] 06-07-2022 17:41-0500 SaO2% (BldA) [Mass fraction] 100 % Dr. Mayda Garcia Work Phone: [facility] 06-07-2022 17:41-0500 Systolic blood pressure 180 mm[Hg] Dr. Mayda Garcia Work Phone: [facility] 06-06-2022 14:05-0500 Respiratory rate 18 /min Dr. Mayda Garcia Work Phone: [facility] 06-06-2022 13:04-0500 Diastolic blood pressure 70 mm[Hg] Dr. Mayda Garcia Work Phone: [facility] 06-06-2022 13:04-0500 Heart rate 79 /min Dr. Mayda Garcia Work Phone: [facility] 06-06-2022 13:04-0500 Systolic blood pressure 133 mm[Hg] Dr. Mayda Garcia Work Phone: [facility] 06-06-2022 12:27-0500 SaO2% (BldA) [Mass fraction] 98 % Dr. Mayda Garcia Work Phone: [facility] 06-06-2022 09:11-0500 Body mass index (BMI) [Ratio] 33.7 kg/m2 Dr. Mayda Garcia Work Phone: [facility] 06-06-2022 09:11-0500 Body temperature 98.1 [degF] Dr. Mayda Garcia Work Phone: [facility] 06-06-2022 09:11-0500 Body weight 83.[address] Mayda Garcia Work Phone: [facility] 05-06-2022 13:32-0500 Body temperature 96.2 [degF] Dr. Mayda Garcia Work Phone: [facility] 05-06-2022 13:32-0500 Body weight 80.[address] Mayda Garcia Work Phone: [facility] 05-06-2022 13:32-0500 Diastolic blood pressure 66 mm[Hg] Dr. Mayda Garcia Work Phone: [facility] 05-06-2022 13:32-0500 Heart rate 89 /min Dr. Mayda Garcia Work Phone: [facility] 05-06-2022 13:32-0500 Respiratory rate 16 /min Dr. Mayda Garcia Work Phone: [facility] 05-06-2022 13:32-0500 SaO2% (BldA) [Mass fraction] 96 % Dr. Mayda Garcia Work Phone: [facility] 05-06-2022 13:32-0500 Systolic blood pressure 136 mm[Hg] Dr. Mayda Garcia Work Phone: [facility] 04-02-2022 11:18-0500 Body height 157.[address] Mayda Garcia Work Phone: [facility] 04-02-2022 11:18-0500 Body mass index (BMI) [Ratio] 32 kg/m2 Dr. Mayda Garcia Work Phone: [facility] 04-02-2022 11:18-0500 Body temperature 98.5 [degF] Dr. Mayda Garcia Work Phone: [facility] 04-02-2022 11:18-0500 Body weight 79.[address] Mayda Garcia Work Phone: [facility] 04-02-2022 11:18-0500 Diastolic blood pressure 64 mm[Hg] Dr. Mayda Garcia Work Phone: [facility] 04-02-2022 11:18-0500 Heart rate 100 /min Dr. Mayda Garcia Work Phone: [facility] 04-02-2022 11:18-0500 Respiratory rate 14 /min Dr. Mayda Garcia Work Phone: [facility] 04-02-2022 11:18-0500 SaO2% (BldA) [Mass fraction] 99 % Dr. Mayda Garcia Work Phone: [facility] 04-02-2022 11:18-0500 Systolic blood pressure 104 mm[Hg] Dr. Mayda Garcia Work Phone: [facility] 03-29-2022 10:32-0500 Body height 157.[address] Mayda Garcia Work Phone: [facility] Work Phone: 03-29-2022 10:32-0500 Body mass index (BMI) [Ratio] 32.8 kg/m2 Dr. Mayda Garcia Work Phone: [facility] 03-29-2022 10:32-0500 Body temperature 96 [degF] Dr. Mayda Garcia Work Phone: [facility] 03-29-2022 10:32-0500 Body weight 81.[address] Mayda Garcia Work Phone: [facility] 03-29-2022 10:32-0500 Diastolic blood pressure 93 mm[Hg] Dr. Mayda Garcia Work Phone: [facility] 03-29-2022 10:32-0500 Heart rate 88 /min Dr. Mayda Garcia Work Phone: [facility] 03-29-2022 10:32-0500 Respiratory rate 18 /min Dr. Mayda Garcia Work Phone: [facility] 03-29-2022 10:32-0500 SaO2% (BldA) [Mass fraction] 100 % Dr. Mayda Garcia Work Phone: [facility] 03-29-2022 10:32-0500 Systolic blood pressure 151 mm[Hg] Dr. Mayda Garcia Work Phone: [facility] 03-14-2022 20:13-0500 Diastolic blood pressure 85 mm[Hg] Dr. Mayda Garcia Work Phone: [facility] 03-14-2022 20:13-0500 Heart rate 93 /min Dr. Mayda Garcia Work Phone: [facility] 03-14-2022 20:13-0500 Respiratory rate 18 /min Dr. Mayda Garcia Work Phone: [facility] 03-14-2022 20:13-0500 SaO2% (BldA) [Mass fraction] 98 % Dr. Mayda Garcia Work Phone: [facility] 03-14-2022 20:13-0500 Systolic blood pressure 150 mm[Hg] Dr. Mayda Garcia Work Phone: [facility] 03-14-2022 16:12-0500 Body height 157.[address] Mayda Garcia Work Phone: [facility] Work Phone: 03-14-2022 16:12-0500 Body mass index (BMI) [Ratio] 33 kg/m2 Dr. Mayda Garcia Work Phone: [facility] 03-14-2022 16:12-0500 Body temperature 97.1 [degF] Dr. Mayda Garcia Work Phone: [facility] 03-14-2022 16:12-0500 Body weight 81.[address] Mayda Garcia Work Phone: [facility] 03-10-2022 10:13-0500 Body mass index (BMI) [Ratio] 33.3 kg/m2 Dr. Mayda Garcia Work Phone: [facility] 03-10-2022 10:13-0500 Body temperature 98.2 [degF] Dr. Mayda Garcia Work Phone: [facility] 03-10-2022 10:13-0500 Body weight 82.[address] Mayda Garcia Work Phone: [facility] 03-10-2022 10:13-0500 Diastolic blood pressure 76 mm[Hg] Dr. Mayda Garcia Work Phone: [facility] 03-10-2022 10:13-0500 Heart rate 94 /min Dr. Mayda Garcia Work Phone: [facility] 03-10-2022 10:13-0500 Respiratory rate 18 /min Dr. Mayda Garcia Work Phone: [facility] 03-10-2022 10:13-0500 SaO2% (BldA) [Mass fraction] 96 % Dr. Mayda Garcia Work Phone: [facility] 03-10-2022 10:13-0500 Systolic blood pressure 118 mm[Hg] Dr. Mayda Garcia Work Phone: [facility] 01-14-2022 12:21-0400 Body height 157.[address] Mayda Garcia Work Phone: [facility] Work Phone: 01-14-2022 12:21-0400 Body mass index (BMI) [Ratio] 31.6 kg/m2 Dr. Mayda Garcia Work Phone: [facility] Work Phone: 01-14-2022 12:21-0400 Body weight 78.[address] Mayda Garcia Work Phone: [facility] Work Phone: 01-14-2022 12:21-0400 Diastolic blood pressure 80 mm[Hg] Dr. Mayda Garcia Work Phone: [facility] Work Phone: 01-14-2022 12:21-0400 Heart rate 102 /min Dr. Mayda Garcia Work Phone: [facility] Work Phone: 01-14-2022 12:21-0400 Respiratory rate 16 /min Dr. Mayda Garcia Work Phone: [facility] Work Phone: 01-14-2022 12:21-0400 SaO2% (BldA) [Mass fraction] 98 % Dr. Mayda Garcia Work Phone: [facility] Work Phone: 01-14-2022 12:21-0400 Systolic blood pressure 130 mm[Hg] Dr. Mayda Garcia Work Phone: [facility] Work Phone: 01-10-2022 09:51-0400 Body mass index (BMI) [Ratio] 32.1 kg/m2 Dr. Mayda Garcia Work Phone: [facility] Work Phone: 01-10-2022 09:51-0400 Body temperature 97 [degF] Dr. Mayda Garcia Work Phone: [facility] Work Phone: 01-10-2022 09:51-0400 Body weight 79.[address] Mayda Garcia Work Phone: [facility] Work Phone: 01-10-2022 09:51-0400 Diastolic blood pressure 78 mm[Hg] Dr. Mayda Garcia Work Phone: [facility] Work Phone: 01-10-2022 09:51-0400 Heart rate 80 /min Dr. Mayda Garcia Work Phone: [facility] Work Phone: 01-10-2022 09:51-0400 Respiratory rate 16 /min Dr. Mayda Garcia Work Phone: [facility] Work Phone: 01-10-2022 09:51-0400 SaO2% (BldA) [Mass fraction] 98 % Dr. Mayda Garcia Work Phone: [facility] Work Phone: 01-10-2022 09:51-0400 Systolic blood pressure 100 mm[Hg] Dr. Mayda Garcia Work Phone: [facility] Work Phone: 01-03-2022 13:14-0400 Body temperature 97.3 [degF] Dr. Mayda Garcia Work Phone: [facility] Work Phone: 01-03-2022 13:14-0400 Diastolic blood pressure 77 mm[Hg] Dr. Mayda Garcia Work Phone: [facility] Work Phone: 01-03-2022 13:14-0400 Heart rate 77 /min Dr. Mayda Garcia Work Phone: [facility] Work Phone: 01-03-2022 13:14-0400 Respiratory rate 18 /min Dr. Mayda Garcia Work Phone: [facility] Work Phone: 01-03-2022 13:14-0400 SaO2% (BldA) [Mass fraction] 99 % Dr. Mayda Garcia Work Phone: [facility] Work Phone: 01-03-2022 13:14-0400 Systolic blood pressure 123 mm[Hg] Dr. Mayda Garcia Work Phone: [facility] Work Phone: 01-03-2022 06:00-0400 Body weight 81.[address] Mayda Garcia Work Phone: [facility] Work Phone: 01-02-2022 12:50-0400 Body height 157.[address] Mayda Garcia Work Phone: [facility] Work Phone: 01-02-2022 12:50-0400 Body mass index (BMI) [Ratio] 32.7 kg/m2 Dr. Mayda Garcia Work Phone: [facility] Work Phone: 12-23-2021 15:00-0400 Body mass index (BMI) [Ratio] 30.4 kg/m2 Dr. Mayda Garcia Work Phone: [facility] Work Phone: 12-23-2021 15:00-0400 Body temperature 98.7 [degF] Dr. Mayda Garcia Work Phone: [facility] Work Phone: 12-23-2021 15:00-0400 Body weight 80.[address] Mayda Garcia Work Phone: [facility] Work Phone: 12-23-2021 15:00-0400 Diastolic blood pressure 64 mm[Hg] Dr. Mayda Garcia Work Phone: [facility] Work Phone: 12-23-2021 15:00-0400 Heart rate 92 /min Dr. Mayda Garcia Work Phone: [facility] Work Phone: 12-23-2021 15:00-0400 Respiratory rate 18 /min Dr. Mayda Garcia Work Phone: [facility] Work Phone: 12-23-2021 15:00-0400 SaO2% (BldA) [Mass fraction] 97 % Dr. Mayda Garcia Work Phone: [facility] Work Phone: 12-23-2021 15:00-0400 Systolic blood pressure 140 mm[Hg] Dr. Mayda Garcia Work Phone: [facility] Work Phone: 12-17-2021 05:21-0400 Diastolic blood pressure 62 mm[Hg] Dr. Mayda Garcia Work Phone: [facility] Work Phone: 12-17-2021 05:21-0400 Heart rate 97 /min Dr. Mayda Garcia Work Phone: [facility] Work Phone: 12-17-2021 05:21-0400 Respiratory rate 18 /min Dr. Mayda Garcia Work Phone: [facility] Work Phone: 12-17-2021 05:21-0400 SaO2% (BldA) [Mass fraction] 98 % Dr. Mayda Garcia Work Phone: [facility] Work Phone: 12-17-2021 05:21-0400 Systolic blood pressure 154 mm[Hg] Dr. Mayda Garcia Work Phone: [facility] Work Phone: 12-17-2021 03:52-0400 Body height 162.[address] Mayda Garcia Work Phone: [facility] Work Phone: 12-17-2021 03:52-0400 Body mass index (BMI) [Ratio] 31 kg/m2 Dr. Mayda Garcia Work Phone: [facility] Work Phone: 12-17-2021 03:52-0400 Body temperature 97.8 [degF] Dr. Mayda Garcia Work Phone: [facility] Work Phone: 12-17-2021 03:52-0400 Body weight 82.[address] Mayda Garcia Work Phone: [facility] Work Phone: 11-28-2021 19:34-0400 Body height 187.[address] Mayda Garcia Work Phone: [facility] Work Phone: 11-28-2021 19:34-0400 Body mass index (BMI) [Ratio] 22.4 kg/m2 Dr. Mayda Garcia Work Phone: [facility] Work Phone: 11-28-2021 19:34-0400 Body temperature 98.6 [degF] Dr. Mayda Garcia Work Phone: [facility] Work Phone: 11-28-2021 19:34-0400 Body weight 79.[address] Mayda Garcia Work Phone: [facility] Work Phone: 11-28-2021 19:34-0400 Diastolic blood pressure 74 mm[Hg] Dr. Mayda Garcia Work Phone: [facility] Work Phone: 11-28-2021 19:34-0400 Heart rate 109 /min Dr. Mayda Garcia Work Phone: [facility] Work Phone: 11-28-2021 19:34-0400 Respiratory rate 18 /min Dr. Mayda Garcia Work Phone: [facility] Work Phone: 11-28-2021 19:34-0400 SaO2% (BldA) [Mass fraction] 99 % Dr. Mayda Garcia Work Phone: [facility] Work Phone: 11-28-2021 19:34-0400 Systolic blood pressure 167 mm[Hg] Dr. Mayda Garcia Work Phone: [facility] Work Phone: 11-06-2021 16:11-0400 Body mass index (BMI) [Ratio] 32.5 kg/m2 Dr. Mayda Garcia Work Phone: [facility] Work Phone: 11-06-2021 16:11-0400 Body temperature 98.4 [degF] Dr. Mayda Garcia Work Phone: [facility] Work Phone: 11-06-2021 16:11-0400 Body weight 80.[address] Mayda Garcia Work Phone: [facility] Work Phone: 11-06-2021 16:11-0400 Diastolic blood pressure 70 mm[Hg] Dr. Mayda Garcia Work Phone: [facility] Work Phone: 11-06-2021 16:11-0400 Heart rate 97 /min Dr. Mayda Garcia Work Phone: [facility] Work Phone: 11-06-2021 16:11-0400 Respiratory rate 18 /min Dr. Mayda Garcia Work Phone: [facility] Work Phone: 11-06-2021 16:11-0400 SaO2% (BldA) [Mass fraction] 97 % Dr. Mayda Garcia Work Phone: [facility] Work Phone: 11-06-2021 16:11-0400 Systolic blood pressure 130 mm[Hg] Dr. Mayda Garcia Work Phone: [facility] Work Phone: 11-05-2021 10:56-0400 Body mass index (BMI) [Ratio] 32.3 kg/m2 Dr. Mayda Garcia Work Phone: [facility] Work Phone: 11-05-2021 10:56-0400 Body temperature 97.4 [degF] Dr. Mayda Garcia Work Phone: [facility] Work Phone: 11-05-2021 10:56-0400 Body weight 80.[address] Mayda Garcia Work Phone: [facility] Work Phone: 11-05-2021 10:56-0400 Diastolic blood pressure 78 mm[Hg] Dr. Mayda Garcia Work Phone: [facility] Work Phone: 11-05-2021 10:56-0400 Heart rate 91 /min Dr. Mayda Garcia Work Phone: [facility] Work Phone: 11-05-2021 10:56-0400 Respiratory rate 16 /min Dr. Mayda Garcia Work Phone: [facility] Work Phone: 11-05-2021 10:56-0400 SaO2% (BldA) [Mass fraction] 98 % Dr. Mayda Garcia Work Phone: [facility] Work Phone: 11-05-2021 10:56-0400 Systolic blood pressure 144 mm[Hg] Dr. Mayda Garcia Work Phone: [facility] Work Phone: 10-25-2021 15:34-0400 Body temperature 98.9 [degF] Dr. Mayda Garcia Work Phone: [facility] Work Phone: 10-25-2021 15:34-0400 Diastolic blood pressure 64 mm[Hg] Dr. Mayda Garcia Work Phone: [facility] Work Phone: 10-25-2021 15:34-0400 Heart rate 78 /min Dr. Mayda Garcia Work Phone: [facility] Work Phone: 10-25-2021 15:34-0400 Respiratory rate 12 /min Dr. Mayda Garcia Work Phone: [facility] Work Phone: 10-25-2021 15:34-0400 SaO2% (BldA) [Mass fraction] 98 % Dr. Mayda Garcia Work Phone: [facility] Work Phone: 10-25-2021 15:34-0400 Systolic blood pressure 126 mm[Hg] Dr. Mayda Garcai Work Phone: [facility] Work Phone: 10-25-2021 13:34-0400 Body height 157.[address] Mayda Garcia Work Phone: [facility] Work Phone: 10-25-2021 13:34-0400 Body mass index (BMI) [Ratio] 32.9 kg/m2 Dr. Mayda Garcia Work Phone: [facility] Work Phone: 10-25-2021 13:34-0400 Body weight 81.[address] Mayda Garcia Work Phone: [facility] Work Phone: 10-17-2021 10:00-0400 Body mass index (BMI) [Ratio] 31.6 kg/m2 Dr. Mayda Garcia Work Phone: [facility] Work Phone: 10-17-2021 10:00-0400 Body weight 78.[address] Mayda Garcia Work Phone: [facility] Work Phone: 10-17-2021 10:00-0400 Diastolic blood pressure 60 mm[Hg] Dr. Mayda Garcia Work Phone: [facility] Work Phone: 10-17-2021 10:00-0400 Heart rate 79 /min Dr. Mayda Garcia Work Phone: [facility] Work Phone: 10-17-2021 10:00-0400 Respiratory rate 16 /min Dr. Mayda Garcia Work Phone: [facility] Work Phone: 10-17-2021 10:00-0400 SaO2% (BldA) [Mass fraction] 99 % Dr. Mayda Garcia Work Phone: [facility] Work Phone: 10-17-2021 10:00-0400 Systolic blood pressure 106 mm[Hg] Dr. Mayda Garcia Work Phone: [facility] Work Phone: 07-16-2021 13:57-0400 Body mass index (BMI) [Ratio] 32.4 kg/m2 Dr. Mayda Garcia Work Phone: [facility] Work Phone: 07-16-2021 13:57-0400 Diastolic blood pressure 84 mm[Hg] Dr. Mayda Garcia Work Phone: [facility] Work Phone: 07-16-2021 13:57-0400 Systolic blood pressure 150 mm[Hg] Dr. Mayda Garcia Work Phone: [facility] Work Phone: 07-16-2021 13:05-0400 Body weight 80.[address] Mayda Garcia Work Phone: [facility] Work Phone: 07-16-2021 13:05-0400 Heart rate 106 /min Dr. Mayda Garcia Work Phone: [facility] Work Phone: 07-16-2021 13:05-0400 SaO2% (BldA) [Mass fraction] 97 % Dr. Mayda Garcia Work Phone: [facility] Work Phone: Encounters Encounter Date Encounter Type Care Provider Facility Start: 03-09-2025 End: 03-09-2025 ambulatory [facility] Facility:[facility] Start: 02-27-2025 End: 02-27-2025 ambulatory [facility] Facility:[facility] Start: 01-30-2025 End: 01-30-2025 Dr. Pepe Ruiz MD -[facility] Work Phone: Start: 01-30-2025 End: 01-30-[address] Mayda Garcia MD Work Phone: [facility] Neurology Start: 01-26-2025 End: 01-26-2025 Shruthi GRIMES -[facility] Work Phone: Start: 01-26-2025 End: 01-26-[address] Mayda Garcia MD Work Phone: [facility] Gastroenter[facility] Start: 01-23-2025 End: 01-23-2025 Suzi GRIMES -[facility] Work Phone: Start: 01-23-2025 End: 01-23-[address] Mayda Garcia MD Work Phone: -[facility] Start: 01-19-2025 End: 01-19-[address] Mayda Garcia MD Work Phone: -[facility] Start: 01-19-2025 End: 01-19-2025 Shruthi GRIMES -[facility] Work Phone: Start: 01-19-2025 End: 01-19-2025 ambulatory [facility] Facility:[facility] Start: 11-25-2024 ambulatory [facility] Start: 11-16-2024 Encounter for genera l adult medical examination without abnormal findings Vanita Venegas NP [facility] Start: 11-16-2024 End: 11-16-2024 Dr. Mayda Garcia MD -[facility] Work Phone: Start: 11-16-2024 End: 11-16-[address] Mayda Gracia MD Work Phone: -[facility] Start: 11-14-2024 Dr. Maurilio Bradford MD -[facility] Work Phone: Start: 11-14-2024 Dr. Aleksandr doty MD -[facility] Start: 11-13-[address] Noris Garcia MD Work Phone: -Progressive Care Unit Start: 11-13-2024 Dr. Edwin Kaplan DO [facility] Work Phone: Start: 11-13-2024 End: 11-14-2024 ambulatory [facility] Facility:[facility] Start: 11-13-2024 End: 11-14-[address] Mayda Garcia MD Work Phone: -Progressive Care Unit Start: 11-13-2024 End: 11-14-2024 Dr. Edwin Kaplan DO -[facility] Work Phone: Start: 11-11-2024 End: 11-11-[address] Mayda Garcia MD Work Phone: -Sleep Lab Start: 11-11-2024 End: 11-11-2024 Vanita GRIMES -Sleep Lab Work Phone: Start: 11-11-2024 End: 11-11-[address] Mayda Garcia MD Work Phone: -Laboratory Start: 11-11-2024 End: 11-11-2024 Dr. Pepe Ruiz MD -Laboratory Work Phone: Start: 11-11-2024 End: 11-11-2024 ambulatory [facility] Facility:[facility] Start: 11-07-2024 End: 11-07-2024 Dr. Pepe Ruiz MD -[facility] Work Phone: Start: 11-07-2024 End: 11-07-[address] Mayda Garcia MD Work Phone: -[facility] Start: 10-20-2024 End: 10-20-[address] Mayda Garcia MD Work Phone: [facility] Work Phone: Start: 10-20-2024 End: 10-20-2024 Vanita GRIMES -Sleep Lab Work Phone: Start: 10-20-2024 End: 10-20-2024 ambulatory [facility] Facility:[facility] Start: 10-03-2024 End: 10-03-2024 Dr. Pepe Ruiz MD -[facility] Work Phone: Start: 10-03-2024 End: 10-03-[address] Mayda Garcia MD Work Phone: [facility] Work Phone: Start: 09-28-2024 End: 09-28-2024 Vanita GRIMES -[facility] Work Phone: Start: 09-28-2024 End: 09-28-[address] Mayda Garcia MD Work Phone: [facility] Work Phone: Start: 09-22-2024 End: 09-22-[address] Mayda Garcia MD Work Phone: [facility] Work Phone: Start: 09-22-2024 End: 09-22-2024 Dr. Mayda Garcia MD -Laboratory [facility] Start: 09-21-2024 End: 09-21-2024 Dr. Mayda Garcia MD -[facility] Work Phone: Start: 09-21-2024 End: 09-22-[address] Mayda Garcia MD Work Phone: [facility] Work Phone: Start: 09-19-2024 End: 09-19-2024 Mikhail LÓPEZ -[facility] Work Phone: Start: 09-19-2024 End: 09-19-[address] Mayda Garcia MD Work Phone: [facility] Work Phone: Start: 09-16-2024 End: 09-16-2024 Dr. Mayda Garcia MD Work Phone: -Emergency Department Work Phone: Start: 09-16-2024 End: 09-16-2024 Emergency department patient visit Dr. Mayda Garcia MD Work Phone: [facility] Work Phone: Start: 08-11-2024 ambulatory [facility]da Apodacai ty:[facility] Start: 08-10-2024 End: 08-10-2024 Dr. Mayda Garcia MD -[facility] Work Phone: Start: 08-10-2024 End: 08-10-2024 ambulatory Mayda Carlton:[facility] Start: 07-22-2024 ambulatory [facility] Start: 07-15-2024 End: 07-15-2024 Dr. Mayda Garcia MD Work Phone: -Emergency Department Work Phone: Start: 07-15-2024 End: 07-15-2024 Emergency department patient visit Dr. Mayda Garcia MD Work Phone: [facility] Work Phone: Start: 07-14-2024 End: 07-14-2024 Emergency department patient visit Dr. Mayda Garcia MD Work Phone: [facility] Work Phone: Start: 07-14-2024 End: 07-14-2024 Dr. Mayda Garcia MD Work Phone: -Emergency Department Work Phone: Start: 07-05-2024 End: 07-05-2024 Dr. Pepe Ruiz MD -[facility] Work Phone: Start: 07-05-2024 End: 07-05-2024 ambulatory [facility] Facility:[facility] Start: 06-22-2024 End: 06-22-2024 [facility] Start: 06-22-2024 End: 06-22-2024 ambulatory [facility] Facility:[facility] Start: 06-07-2024 End: 06-07-2024 Dr. Mayda Garcia MD -Outpatient Breast Imaging Work Phone: Start: 06-07-2024 End: 06-07-2024 ambulatory [facility] Facility:[facility] Start: 05-20-2024 End: 05-20-2024 Dr. Mayda Garcia MD -[facility] Work Phone: Start: 05-20-2024 End: 05-20-2024 ambulatory [facility] Oleg[facility] Facility:[facility] Start: 05-16-2024 End: 05-16-2024 [facility] Start: 05-16-2024 End: 05-16-2024 Dr. Pepe Ruiz MD -[facility] Work Phone: Start: 05-16-2024 End: 05-16-2024 ambulatory [facility] Oleg[facility] Facility:[facility] Start: 05-16-2024 End: 05-16-2024 ambulatory [facility] Olee Facility:[facility] Start: 04-25-2024 ambulatory [facility] Facili ty:[facility] Start: 04-25-2024 Dr. Russell Jang DO -[facility] Start: 04-21-2024 End: 04-21-2024 Dr. Pepe Ruiz MD -[facility] Work Phone: Start: 04-21-2024 End: 04-21-2024 ambulatory [facility] Facility:[facility] Start: 04-20-2024 End: 04-20-2024 Vanita Venegas LEAD SIMULATION MODELING ENGINEER-C -Pulmonary Services/Neurology Work Phone: Start: 04-19-2024 End: 04-19-2024 Dr. Winston Johnson MD -[facility] Work Phone: Start: 04-19-2024 End: 04-20-2024 ambulatory [facility] Olee Facility:[facility] Start: 04-04-2024 ambulatory [facility] Facili ty:[facility] Start: 09-07-2023 End: 09-07-[address] Mayda Garcia Work Phone: [facility] Work Phone: Start: 09-07-2023 End: 09-07-[address] Mayda Garcia Work Phone: [facility]-Laboratory, [place] Work Phone: Start: 08-19-2023 End: 08-19-[address] Mayda Garcia Work Phone: [facility] Work Phone: Start: 08-19-2023 End: 09-01-[address] Mayda Garcia Work Phone: [facility] Work Phone: Start: 08-19-2023 End: 09-01-[address] Mayda Garcia Work Phone: [facility]-Cardiac Rehab Work Phone: Start: 08-19-[address] Susan Garcia Work Phone: [facility]-Cardiac Rehab Work Phone: Start: 08-14-2023 End: 08-14-[address] Mayda Garcia Work Phone: [facility] Work Phone: Start: 08-14-2023 End: 08-14-[address] Mayda Garcia Work Phone: [facility]-Cat Scan, [facility] Work Phone: Start: 08-10-2023 End: 08-10-[address] Mayda Garcia Work Phone: [facility] Work Phone: Start: 08-10-2023 End: 08-10-[address] Mayda Garcia Work Phone: [facility]-Nuclear Medicine, [facility] Work Phone: Start: 08-10-[address] Susan Garcia Work Phone: [facility]-Cardiac Rehab Work Phone: Start: 07-31-2023 End: 08-02-[address] Mayda Garcia Work Phone: [facility] Work Phone: Start: 07-31-2023 End: 08-02-[address] Mayda Garcia Work Phone: [facility]-Cardiac Rehab Work Phone: Start: 07-30-2023 End: 07-30-[address] Mayda Garcia Work Phone: [facility] Gastroenterology Work Phone: Start: 07-27-[address] Susan Garcia Work Phone: [facility]-Cardiac Rehab Work Phone: Start: 07-23-2023 End: 07-23-[address] Mayda Garcia Work Phone: [facility] Work Phone: Start: 07-21-2023 End: 07-21-[address] Mayda Garcia Work Phone: [facility] Work Phone: Start: 07-21-2023 End: 07-21-[address] Mayda Garcia Work Phone: [facility]-Sleep Lab Work Phone: Start: 07-21-2023 End: 07-21-[address] Mayda Garcia Work Phone: [facility] Work Phone: Start: 07-21-2023 End: 07-21-[address] Mayda Garcia Work Phone: [facility]-Outpatient Bone Densitometry Work Phone: Start: 07-20-2023 End: 07-20-[address] Mayda Garcia Work Phone: [facility] Neurology Work Phone: Start: 07-01-2023 End: 07-02-[address] Mayda Garcia Work Phone: [facility] Work Phone: Start: 07-01-2023 End: 07-02-[address] Mayda Garcia Work Phone: [facility]-Cardiac Rehab Work Phone: Start: 07-01-[address] Susan Garcia Work Phone: [facility]-Cardiac Rehab Work Phone: Start: 06-25-2023 End: 06-25-[address] Madya Garcia Work Phone: [facility] Work Phone: Start: 06-25-2023 End: 06-25-[address] Mayda Garcia Work Phone: [facility]-Sleep Lab Work Phone: Start: 06-22-[address] Susan Garcia Work Phone: [facility]-Cardiac Rehab Work Phone: Start: 06-17-2023 End: 06-17-[address] Mayda Garcia Work Phone: [facility] Work Phone: Start: 06-17-2023 End: 06-17-[address] Mayda Garcia Work Phone: [facility] Work Phone: Start: 06-10-2023 End: 06-10-[address] Mayda Garcia Work Phone: [facility] Work Phone: Start: 06-01-2023 End: 06-01-[address] Mayda Garcia Work Phone: [facility] Work Phone: Start: 06-01-2023 End: 06-01-[address] Mayda Garcia Work Phone: [facility]-Cardiac Rehab Work Phone: Start: 05-25-2023 End: 05-25-[address] Mayda Garcia Work Phone: [facility] Work Phone: Start: 05-25-2023 End: 05-25-[address] Mayda Garcia Work Phone: [facility]-Outpatient Breast Imaging Work Phone: Start: 05-20-2023 End: 05-20-[address] Mayda Garcia Work Phone: [facility]opaedic [facility] Work Phone: Start: 05-18-2023 End: 05-18-[address] Mayda Garcia Work Phone: [facility] Neu[facility] Work Phone: Start: 04-16-2023 End: 04-16-[address] Mayda Garcia Work Phone: [facility] Work Phone: Start: 04-08-2023 Non-patient / Non-visit Dr. Jia Garcia Work Phone: [facility] Start: 03-30-2023 End: 03-30-[address] Mayda Garcia Work Phone: [facility] Work Phone: Start: 03-30-2023 End: 03-30-[address] Mayda Garcia Work Phone: [facility] Work Phone: Start: 03-30-2023 End: 03-30-2023 Dr. Mayda Garcia Work Phone: [facility] Work Phone: Start: 03-19-2023 End: 03-19-[address] Mayda Garcia Work Phone: [facility] Work Phone: Start: 03-19-2023 End: 03-19-2023 Dr. Mayda Garcia Work Phone: [facility] Work Phone: Start: 03-16-2023 End: 03-16-[address] Mayda Garcia Work Phone: [facility] Internal [facility] Work Phone: Start: 03-16-2023 End: 03-16-2023 Dr. Mayda Garcia Work Phone: [facility] Work Phone: Start: 02-18-2023 End: 02-18-[address] Mayda Garcia Work Phone: [facility] Work Phone: Start: 02-18-2023 End: 02-18-[address] Mayda Garcia Work Phone: [facility] Work Phone: Start: 02-18-2023 End: 02-18-2023 Dr. May[facility] Garcia [facility] Work Phone: Start: 02-18-2023 End: 02-18-[address] Mayda Garcia Work Phone: [facility] Work Phone: Start: 02-18-2023 End: 02-18-2023 Dr. Mayda Garcia Work Phone: [facility] Work Phone: Start: 02-11-2023 End: 02-11-[address] Mayda Garcia Work Phone: [facility] Work Phone: Start: 02-11-2023 End: 02-11-2023 Dr. Mayda Garcia Work Phone: [facility] Work Phone: Start: 02-04-2023 End: 02-04-[address] Mayda Garcia Work Phone: [facility] [place] Start: 02-04-2023 End: 02-04-2023 Dr. Mayda Garcia Work Phone: [facility] [place] Start: 02-04-2023 End: 02-04-[address] Mayda Garcia Work Phone: [facility] Internal [facility] Work Phone: Start: 02-04-2023 End: 02-04-2023 Dr. Mayda Garcia Work Phone: [facility] Work Phone: Start: 01-27-2023 End: 01-27-2023 Postop follow up visit related to original px Kassy Ken CNP Work Phone: [facility]ovascular [facility] Thor[facility] Comment on above: S/P CABG (coronary a rtery bypass graft) (Primary Dx) Start: 01-11-2023 End: 01-26-2023 Evaluation and management of inpatient Dr. Mayda Garcia Work Phone: [facility] Start: 01-11-2023 End: 01-26-2023 Dr. Mayda Garcia Work Phone: [facility] Start: 01-01-2023 Evaluation and management of inpatient [facility] Start: 01-01-2023 End: 01-11-2023 Evaluation and management of inpatient Azam Rose MD Work Phone: [facility] Comment on above: S/P CABG (coronary a rtery bypass graft) (Primary Dx); CAD in [place] artery; Coronary artery disease involving coronary bypass graft, unspecified whether angina present, unspecified whether [place] or transplanted heart Start: 12-29-2022 End: 12-29-2022 Encounter for other preprocedural examination [facility] Start: 12-29-2022 End: 12-30-2022 ambulatory [facility] Start: 12-29-2022 End: 12-29-2022 Preoperative state Azam Rose MD Work Phone: [facility] Work Phone: Start: 12-29-2022 End: 12-29-2022 Subsequent hospital visit by physician Azam Rose MD Work Phone: [facility] Comment on above: Preoperative clearan ce Start: 12-24-2022 Admission to [facility] Kassy Ken CNP Work Phone: [facility]acic [facility] Comment on above: CAD in [place] artery (Primary Dx); Preoperative clearance Start: 12-24-2022 ambulatory Kassy Ken CNP Work Phone: [facility] Start: 12-24-2022 Preoperative state Kassy Dennis er FIELD SUPERINTENDENT - TANK CLEANING SUPERVISOR Work Phone: [facility] Work Phone: Start: 12-23-2022 Telephone encounter Azam fenton MD Work Phone: [facility] Comment on above: Surgery Scheduling Start: 12-23-2022 End: 12-23-2022 ambulatory AZAM ROSE [facility] Start: 12-23-2022 End: 12-23-2022 Office outpatient new 60 minutes Azam Rose MD Work Phone: [facility]acic [facility] Comment on above: 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 Jia Garcia Work Phone: [facility] Work Phone: Start: 12-19-2022 Dr. Mayda Garcia Work Phone: [facility] Work Phone: Start: 12-19-2022 Non-patient / Non-visit Dr. Jia Garcia Work Phone: [facility] Start: 12-19-2022 Dr. Mayda Garcia Work Phone: [facility] Start: 12-18-2022 Non-patient / Non-visit Dr. Jia Garcia Work Phone: [facility] Work Phone: Start: 12-18-2022 Dr. Mayda Garcia Work Phone: [facility] Work Phone: Start: 12-18-2022 End: 12-19-2022 Evaluation and management of inpatient Dr. Mayda Garcia Work Phone: [facility] Work Phone: Start: 12-18-2022 End: 12-19-[address] Mayda Garcia Work Phone: [facility] Work Phone: Start: 12-18-2022 End: 12-19-2022 Dr. Mayda Garcia Work Phone: [facility] Work Phone: Start: 12-18-2022 Evaluation and management of inpatient Dr. Mayda Garcia Work Phone: [facility] Work Phone: Start: 12-16-2022 End: 12-16-[address] Mayda Garcia Work Phone: [facility] Work Phone: Start: 12-16-2022 End: 12-16-[address] Mayda Garcia Work Phone: [facility] Work Phone: Start: 12-16-2022 End: 12-16-2022 Dr. Mayda Garcia Work Phone: [facility] Work Phone: Start: 12-11-2022 End: 12-11-[address] Mayda Garcia Work Phone: [facility] Work Phone: Start: 12-11-2022 End: 12-11-2022 Dr. Mayda Garcia Work Phone: [facility] Work Phone: Start: 11-19-2022 End: 11-19-[address] Mayda Garcia Work Phone: [facility] Work Phone: Start: 11-19-2022 End: 11-19-2022 Dr. Mayda Garcia Work Phone: [facility] Work Phone: Start: 10-10-2022 End: 10-10-[address] Mayda Garcia Work Phone: [facility] Work Phone: Start: 10-03-2022 End: 10-03-[address] Mayda Garcia Work Phone: [facility] Work Phone: Start: 10-03-2022 End: 10-03-[address] Mayda Garcia Work Phone: [facility] Start: 10-03-2022 End: 10-03-[address] Mayda Garcia Work Phone: [facility] Start: 10-02-2022 End: 10-02-[address] Mayda Garcia Work Phone: [facility] Start: 10-01-2022 End: 10-01-[address] Mayda Garcia Work Phone: [facility] Work Phone: Start: 10-01-2022 End: 10-01-[address] Mayda Garcia Work Phone: [facility] [place] Start: 08-22-2022 End: 08-22-[address] Mayda Garcia Work Phone: [facility] Start: 08-13-2022 End: 08-14-2022 Emergency department patient visit Dr. Mayda Garcia [facility] Start: 07-16-2022 End: 07-16-[address] Mayda Garcia Work Phone: [facility] Start: 06-30-2022 End: 06-30-[address] Mayda Garcia Work Phone: [facility] Start: 06-09-2022 End: 06-09-[address] Mayda Garcia Work Phone: [facility] Start: 06-07-2022 End: 06-07-2022 Emergency department patient visit Dr. Mayda Garcia [facility] Start: 06-06-2022 End: 06-06-2022 Emergency department patient visit Dr. Mayda Garcia [facility] Start: 05-06-2022 End: 05-06-[address] Mayda Garcia Work Phone: [facility] Work Phone: Start: 05-06-2022 End: 05-06-[address] Mayda Garcia Work Phone: [facility] Start: 04-02-2022 End: 04-02-[address] Mayda Garcia Work Phone: [facility] Start: 03-29-2022 End: 03-29-2022 Emergency department patient visit Dr. Mayda Garcia [facility] Start: 03-14-2022 End: 03-14-2022 Emergency department patient visit Dr. Mayda Garcia Work Phone: [facility]Emergency Department Start: 03-10-2022 End: 03-10-[address] Mayda Garcia Work Phone: [facility]Pulmonary Medicine [facility] Start: 02-21-2022 End: 02-21-[address] Mayda Garcia Work Phone: [facility] Work Phone: Start: 02-21-2022 End: 02-21-[address] Mayda Garcia Work Phone: [facility]-Physical Therapy Start: 01-14-2022 End: 01-14-[address] Mayda Garcia Work Phone: [facility] Start: 01-10-2022 End: 01-10-[address] Mayda Garcia Work Phone: [facility] Work Phone: Start: 01-10-2022 End: 01-10-[address] Mayda Garcia Work Phone: [facility] Start: 01-03-2022 Non-patient / Non-visit Dr. Jia Garcia Work Phone: [facility] Start: 01-03-2022 Non-patient / Non-visit Dr. Jia Garcia Work Phone: [facility] Start: 01-02-2022 Non-patient / Non-visit Dr. Jia Garcia Work Phone: [facility] Start: 01-02-2022 End: 01-03-2022 Evaluation and management of inpatient Dr. Mayda Garcia Work Phone: [facility]-Progressive Care Unit Start: 01-02-2022 End: 01-03-[address] Mayda Garcia Work Phone: [facility] Work Phone: Start: 01-02-2022 Non-patient / Non-visit Dr. Jia Garcia Work Phone: [facility] Start: 12-23-2021 End: 12-23-[address] Mayda Garcia Work Phone: [facility] Start: 12-17-2021 End: 12-17-2021 Emergency department patient visit Dr. Mayda Garcia Work Phone: [facility]Emergency Department Start: 12-12-2021 End: 12-12-[address] Myada Garcia Work Phone: [facility]-Outpatient Breast Imaging Start: 11-29-2021 Non-patient / Non-visit Dr. Jia Garcia Work Phone: [facility] Start: 11-29-2021 End: 11-29-[address] Mayda Lozano Phone: [facility]-Cardiovascular Services Start: 11-28-2021 End: 11-28-2021 Emergency department patient visit Dr. Mayda Garcia Work Phone: [facility]-Emergency Department Start: 11-06-[address] Mayda Garcia Work Phone: [facility] Start: 11-06-2021 End: 11-06-2021 Encounter for general adult medical examination without abnormal findings Dr. Mayda Garcia Work Phone: [facility] Start: 11-06-2021 End: 11-06-[address] Mayda Garcia Work Phone: [facility] Start: 11-05-2021 End: 11-05-[address] Mayda Garcia Work Phone: [facility]-Pulmonary Medicine [facility] Start: 10-25-2021 End: 10-25-2021 Emergency department patient visit Dr. Mayda Garcia Work Phone: [facility]-Emergency Department Start: 10-17-2021 End: 10-17-[address] Mayda Garcia Work Phone: [facility] Start: 07-18-2021 End: 07-18-[address] Mayda Garcia Work Phone: [facility]-Physical Therapy Start: 07-16-2021 End: 07-16-[address] Mayda Garcia Work Phone: [facility] Start: 07-10-2021 End: 07-10-[address] Mayda Lozano Phone: [facility] Start: 10-02-[address] Mayda Lozano Phone: [facility] Start: 02-25-2018 End: 03-01-2018 Patient encounter procedure TILA (PT) JENELLE [facility] Start: 02-22-2018 End: 02-22-2018 Patient encounter procedure JOSSUE FINLEY [facility] Start: 02-18-2018 End: 02-22-2018 Patient encounter procedure TILA (PT) JENELLE [facility] Start: 02-11-2018 End: 02-12-2018 Patient encounter procedure TILA (PT) JENELLE [facility]: [facility]-09-2018 [facility] Start: 02-04-2018 End: 02-04-2018 Patient encounter procedure TILA (PT) JENELLE [facility] Start: 02-02-2018 End: 02-03-2018 Patient encounter procedure TILA (PT) [facility] Start: 01-28-2018 End: 02-01-2018 Patient encounter procedure TILA (PT) [facility] Start: 01-26-2018 End: 01-27-2018 Patient encounter procedure TILA (PT) [facility] Start: 01-21-2018 End: 01-25-2018 Patient encounter procedure TILA (PT) [facility] Start: 01-14-2018 Patient encounter procedure TILA (PT) [facility] Start: 01-12-2018 End: 01-13-2018 Patient encounter procedure TILA (PT) [facility] Start: 01-11-2018 End: 01-11-2018 Patient encounter procedure MYNOR FLORES [facility] Start: 01-07-2018 End: 01-08-2018 Patient encounter procedure TILA (PT) [facility] Start: 01-05-2018 End: 01-06-2018 Patient encounter procedure TILA (PT) [facility] Start: 12-17-2017 End: 12-17-2017 Patient encounter procedure MYNOR FLORES [facility] Start: 12-09-2017 End: 12-09-2017 Patient encounter procedure MYNOR FLORES [facility] Start: 10-15-2017 End: 10-16-2017 Patient encounter procedure JOSSUE FINLEY [facility] Start: 10-14-2017 End: 10-14-2017 Patient encounter procedure JOSSUE FINLEY [facility] Start: 07-20-2017 End: 07-20-2017 Patient encounter procedure GLEN (BI DATA ARCHITECT) [facility] Start: 02-09-2017 End: 02-09-2017 Ambulatory CHRIS Chandana YAO [facility] Procedures Date Procedure Procedure Detail Performing [...] Start: 01-19-2025 Platelet mean volume determination Dr. Mayda Garcia MD Work Phone: Start: 01-19-2025 Assay [...] Mayda Garcia MD Work Phone: Start: 09-22-2024 BOAT PERSON antibody measurement Dr. Mayda alanis MD Work [...] CABG (coronary artery bypass graft) Kassy Tabares FIELD SUPERINTENDENT - TANK CLEANING SUPERVISOR Work Phone: Start: 01-10-2023 Glucose quantitative [...] Radiologic exam chest single view Shruthi Weaver FIELD SUPERINTENDENT - TANK CLEANING SUPERVISOR Work Phone: Start: 01-07-2023 Glucose quantitative blood xcpt reagent strip Azam Rose MD Work Phone: Start: 01-07-2023 Glucose quantitative blood xcpt reagent strip Azam Rose MD Work Phone: Start: 01-07-2023 Glucose quantitative blood xcpt reagent strip Azam Rose MD Work Phone: Start: 01-07-2023 Radiologic exam chest single view Shruthi Weaver FIELD SUPERINTENDENT - TANK CLEANING SUPERVISOR Work Phone: Start: 01-07-2023 Basic metabolic panel calcium total Shruthi Weaver FIELD SUPERINTENDENT - TANK CLEANING SUPERVISOR Work Phone: Start: 01-06-2023 Glucose quantitative blood xcpt reagent strip Azam Rose MD Work Phone: Start: 01-06-2023 Glucose quantitative blood xcpt reagent strip Azam Rose MD Work Phone: Start: 01-06-2023 Glucose quantitative blood xcpt reagent strip Azam Rose MD Work Phone: Start: 01-06-2023 Radiologic exam chest single view Shruthi Weaver FIELD SUPERINTENDENT - TANK CLEANING SUPERVISOR Work Phone: Start: 01-06-2023 Basic metabolic panel calcium total Shruthi Weaver FIELD SUPERINTENDENT - TANK CLEANING SUPERVISOR Work Phone: Start: 01-05-2023 Glucose quantitative blood xcpt reagent strip Azam Rose MD Work Phone: Start: 01-05-2023 Glucose quantitative blood xcpt reagent strip Azam Rose MD Work Phone: Start: 01-05-2023 Radiologic exam chest single view Shruthi Weaver FIELD SUPERINTENDENT - TANK CLEANING SUPERVISOR Work Phone: Start: 01-05-2023 Compatibility each unit electronic Remington Hopkins MD Work Phone: Start: 01-05-2023 Basic metabolic panel calcium total Shruthi Weaver FIELD SUPERINTENDENT - TANK CLEANING SUPERVISOR Work Phone: Start: 01-04-2023 Glucose quantitative blood xcpt reagent strip Azam Rose MD Work Phone: Start: 01-04-2023 Glucose quantitative blood xcpt reagent strip Azam Rose MD Work Phone: Start: 01-04-2023 Radiologic exam chest single view Shruthi Neumann Patriciasumit FIELD SUPERINTENDENT - TANK CLEANING SUPERVISOR Work Phone: Start: 01-04-2023 End: 01-04-2023 Basic metabolic panel calcium total Shruthi Weaver FIELD SUPERINTENDENT - TANK CLEANING SUPERVISOR Work Phone: Start: 01-03-2023 Glucose quantitative blood xcpt reagent strip Azam Rose MD Work Phone: Start: 01-03-2023 Glucose quantitative blood xcpt reagent strip Azam Rose MD Work Phone: Start: 01-03-2023 Glucose quantitative blood xcpt reagent strip Azam Rose MD Work Phone: Start: 01-03-2023 Radiologic exam chest single view Shruthi Nel Weaver FIELD SUPERINTENDENT - [facility] Work Phone: Start: 01-03-2023 Basic metabolic panel calcium total Shruthi Weaver FIELD SUPERINTENDENT - TANK CLEANING SUPERVISOR Work Phone: Start: 01-02-2023 Glucose quantitative blood xcpt reagent strip Azam Rose MD Work Phone: Start: 01-02-2023 Glucose quantitative blood xcpt reagent strip Azam Rose MD Work Phone: Start: 01-02-2023 End: 01-02-2023 Basic metabolic panel calcium total Chandler Harmon Leanna FIELD SUPERINTENDENT - TANK CLEANING SUPERVISOR Work Phone: Start: 01-02-2023 Glucose quantitative blood xcpt reagent strip Azam Rose MD Work Phone: Start: 01-02-2023 Glucose quantitative blood xcpt reagent strip Azam Rose MD Work Phone: Start: 01-02-2023 Radiologic exam chest single view Shruthi Nel Weaver FIELD SUPERINTENDENT - [facility] Work Phone: Start: 01-02-2023 Ecg routine ecg w/least 12 lds trcg only w/o i&r Shruthi Neumann Carmella FIELD SUPERINTENDENT - [facility] Work Phone: Start: 01-02-2023 End: 01-02-2023 Glucose quantitative blood xcpt reagent strip Azam Rose MD Work Phone: Start: 01-02-2023 End: 01-02-2023 Glucose quantitative blood xcpt reagent strip Azam Rose MD Work Phone: Start: 01-02-2023 Glucose quantitative blood xcpt reagent strip Azam Rose MD Work Phone: Start: 01-02-2023 End: 01-02-2023 Basic metabolic panel calcium total Shruthi Nel Weaver FIELD SUPERINTENDENT - TANK CLEANING SUPERVISOR Work Phone: Start: 01-01-2023 Glucose quantitative [...] count hematocrit Mynor Villareal A PRN - TANK CLEANING SUPERVISOR Work Phone: Start: 01-01-2023 Compatibility each unit electronic Mynor Villareal FIELD SUPERINTENDENT - TANK CLEANING SUPERVISOR Work Phone: Start: 01-01-2023 End: 01-01-2023 TRANSFUSE RED BLOOD CELLS Mynor R Gene t FIELD SUPERINTENDENT - TANK CLEANING SUPERVISOR Work Phone: Start: 01-01-2023 Radiologic exam chest single view Mynor Villareal FIELD SUPERINTENDENT - TANK CLEANING SUPERVISOR Work Phone: Start: 01-01-2023 End: 01-01-2023 Blood count complete automated Mynor Villareal FIELD SUPERINTENDENT - TANK CLEANING SUPERVISOR Work Phone: Start: 01-01-2023 Echo transesophag r-t 2d w/prb img acquisj i&r Azam Rose MD Work Phone: Start: 01-01-2023 Ecg routine ecg w/least 12 lds trcg only w/o i&r Shruthi Weaver FIELD SUPERINTENDENT - TANK CLEANING SUPERVISOR Work Phone: Start: 01-01-2023 End: 01-01-2023 [...] transesophag r-t 2d w/prb img acquisj i&r Azamjerica Rose MD Work Phone: Start: 01-01-2023 End: [...] artery bypass graft) Kassy Tabares APRN - TANK CLEANING SUPERVISOR Work Phone: History of coronary artery [...] of coronary artery bypass grafting Suzi Appiah LEAD SIMULATION MODELING ENGINEER-C SARS-CoV-2 & FLU Ant igen (Rapid) Dr. Mayda Garcia Work Phone: Streptococcus pyogen es antigen assay Dr. Mayda Garcia Work Phone: Urine culture Dr. Mayda Garcia Work Phone: Plan of Treatment Date Care Activity Detail Author Start: 04-07-2025 ambulatory Facility:[facility] Start: 01-30-2025 End: 01-30-2025 -[facility] Work Phone: Start: 01-26-2025 End: 01-26-2025 -[facility] Work Phone: Start: 01-23-2025 End: 01-23-2025 -[facility] Work Phone: Start: 11-14-2024 Patient discharge [facility] Start: 11-14-2024 [facility] Start: 11-13-2024 Following clinical pathway protocol [facility] Start: 11-13-2024 Ambulation without limitation [facility] Start: 11-13-2024 Assessment of risk of venous thromboembolism [facility] Start: 11-13-2024 Incentive spirometry [facility] Start: 11-13-2024 Insertion of catheter into peripheral vein [facility] Start: 11-13-2024 Measuring intake and output [facility] Start: 11-13-2024 Oxygen therapy [facility] Start: 11-13-2024 Providing care according to standard [facility] Start: 11-13-2024 Referral to cv/cvn cv tsc system operator [facility] Start: 11-13-2024 [facility] Start: 11-13-2024 Thyroid stimulating hormone measurement [facility] Start: 11-13-2024 Verification routine [facility] Start: 11-13-2024 Hospital admission, emergency, from emergency room, medical nature [facility] Start: 11-13-2024 Admission procedure [facility] Start: 11-13-2024 [facility] Start: 09-22-2024 Cytoplasmic [facility] Start: 09-21-2024 Patient referral [facility] Work Phone: Start: 09-16-2024 [facility] Start: 07-15-2024 [facility] Start: 07-14-2024 [facility] Start: 07-14-2024 [facility] Start: 05-20-2024 Patient referral [facility] Work Phone: Start: 01-08-2024 Creatinine measurement Creatinine Level [facility] Start: 01-08-2024 Potassium measurement Potassium Level [facility] Start: 01-02-2024 Echocardiography Echocardiogram [facility] Start: 12-30-2023 Hemoglobin A1c measurement Diabetes: Hemoglobin A1C [facility] Start: 07-23-2023 Patient referral [facility] Work Phone: Start: 06-17-2023 Patient referral [facility] Work Phone: Start: 06-01-2023 Patient referral to dietitian [facility] Start: 05-20-2023 Patient referral [facility] Work Phone: Start: 03-19-2023 Patient referral [facility] Work Phone: Start: 02-23-2023 Blood chemistry [facility] Start: 02-16-2023 Blood chemistry [facility] Start: 02-09-2023 Blood chemistry [facility] Start: 02-02-2023 Blood chemistry [facility] Start: 01-28-2023 Development of care plan [facility] Start: 01-26-2023 Patient discharge [facility] Start: 01-22-2023 Referral to service [facility] Start: 01-22-2023 Continuous positive airway pressure ventilation treatment [facility] Start: 01-21-2023 Following clinical pathway protocol [facility] Start: 01-21-2023 [facility] Start: 01-19-2023 End: 01-19-2023 Patient encounter procedure 01/19/2023 11:30 AM EDT Office Visit [facility] Thor[facility] [address] [place] [address] Kassy Tabares, FIELD SUPERINTENDENT - TANK CLEANING SUPERVISOR [address] [place] [address] [facility] Start: 01-14-2023 End: 01-14-2023 Speech therapy management [facility] Start: 01-13-2023 Speech therapy assessment [facility] Start: 01-12-2023 [facility] Start: 01-12-2023 Development of care plan [facility] Start: 01-12-2023 Developing a treatment plan [facility] Start: 01-11-2023 Seizure precautions [facility] Start: 01-11-2023 Provision of activity privileges [facility] Start: 01-11-2023 Recommendation to continue with treatment [facility] Start: 01-11-2023 Wound care [facility] Start: 01-11-2023 Admission procedure [facility] Start: 01-11-2023 Measuring intake and output [facility] Start: 01-11-2023 Patient referral to dietitian [facility] Start: 01-11-2023 Referral to occupational therapist [facility] Start: 01-11-2023 Referral to service [facility] Start: 01-11-2023 Vital signs measurements [facility] Start: 01-11-2023 End: 01-11-2023 [facility] Start: 01-02-2023 Influenza vaccination Influenza Vaccine (#1) [facility] Start: 01-01-2023 End: 01-01-2023 Admission to same day surgery center 01/01/2023 7:30 AM EDT - 01/01/2023 12:30 PM EDT Surgery [facility] [address] [place] [address] zAam Rose MD [address] [place] [address], [address] [place], [place] [id number] CABG AND SIS [03276 (CPT )] [facility] Comment on above: CABG AND SIS [00098 (CPT )] Start: 01-01-2023 End: 01-01-2023 Anesthesia consultation 01/01/2023 7:30 AM EDT Anesthesia Event [facility] [address] [place] [address] Adilia Carson PA [address] [place] [address] [facility] Start: 01-01-2023 End: 01-01-2023 Cabg w/arterial graft three arterial grafts CABG X3 ARTERIAL GRAFTS 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 01/01/2023 7:30 AM EDT [facility] Operating Room Start: 01-01-2023 End: 01-01-2023 Echo transesophag r-t 2d w/prb img acquisj i&r Echocardiography transesophageal real-time 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 01/01/2023 7:30 AM EDT [facility] Operating Room Start: 01-01-2023 Subsequent hospital visit by physician 01/01/2023 7:30 AM EDT Hospital Encounter [facility] [address] [place] [address] Azam Rose MD [address] [place] [address], [address] [place] [address] [facility] Start: 12-26-2022 End: 12-26-2022 Admission to establishment 12/26/2022 1:00 PM EDT Pre-Admission Testing [facility] Pre-Admit Testing [address] [place] [address] [facility] Pre-[facility]mit Testing Start: 12-24-2022 End: 02-23-2023 Basic metabolic 1998 panel - Serum or Plasma Basic metabolic panel Lab Routine Preoperative clearance Expected: 12/24/2022, Expires: 02/23/2023 [facility] Work Phone: Comment on above: Expected: 12/24/2022, Expires: Start: 12-24-2022 End: 02-23-2023 Blood type and Crossmatch panel - Blood Type and Screen Lab Routine Preoperative clearance Expected: 12/24/2022, Expires: 02/23/2023 Qwilr Comment on above: Expected: 12/24/2022, Expires: Start: 12-24-2022 End: 02-23-2023 CBC panel - Blood by Automated count CBC Lab Routine Preoperative clearance Expected: 12/24/2022, Expires: 02/23/2023 Qwilr Comment on above: Expected: 12/24/2022, Expires: Start: 12-24-2022 End: 02-23-2023 ECG 12 lead ECG 12 lead CV ECG Routine Preoperative clearance Expected: 12/24/2022, Expires: 02/23/2023 Qwilr Comment on above: Expected: 12/24/2022, Expires: Start: 12-24-2022 End: 02-23-2023 Hemoglobin A1c/Hemoglobin.total in Blood Hemoglobin A1c Lab Routine Preoperative clearance Expected: 12/24/2022, Expires: 02/23/2023 Qwilr Comment on above: Expected: 12/24/2022, Expires: Start: 12-24-2022 End: 02-23-2023 Prepare RBC: 2 Units Prepare RBC: 2 Units Blood Bank Routine Preoperative clearance Expected: 12/24/2022, Expires: 02/23/2023 Qwilr Comment on above: Expected: 12/24/2022, Expires: Start: 12-24-2022 End: 02-23-2023 XR Chest 2 Views XR chest 2 views Imaging Routine Preoperative clearance Expected: 12/24/2022, Expires: 02/23/2023 Qwilr Comment on above: Expected: 12/24/2022, Expires: 3 Start: 12-19-2022 Patient discharge [facility] Start: 12-19-2022 Patient referral [facility] Work Phone: Start: 12-18-2022 Referral to cv/cvn cv tsc system operator [facility] Start: 12-18-2022 Ambulation without limitation [facility] Start: 12-18-2022 Assessment of risk of venous thromboembolism [facility] Start: 12-18-2022 Insertion of catheter into peripheral vein [facility] Start: 12-18-2022 Oxygen therapy [facility] Start: 12-18-2022 Providing care according to standard [facility] Start: 12-18-2022 Admission procedure [facility] Start: 12-18-2022 Following clinical pathway protocol [facility] Start: 12-18-2022 End: 12-18-2022 [facility] Start: 12-12-2022 Screening for malignant neoplasm of breast Mammogram [facility] Start: 06-07-2022 Incentive spirometry [facility] Start: 06-07-2022 [facility] Start: 06-06-2022 Seizure precautions [facility] Start: 03-14-2022 Seizure precautions [facility] Start: 01-10-2022 Patient referral [facility] Work Phone: Start: 01-03-2022 Patient discharge [facility] Work Phone: Start: 01-02-2022 Care regimes management [facility] Work Phone: Start: 01-02-2022 Notification of physician [facility] Work Phone: Start: 01-02-2022 [facility] Work Phone: Start: 01-02-2022 Following clinical pathway protocol [facility] Work Phone: Start: 01-02-2022 Assessment of risk of venous thromboembolism [facility] Work Phone: Start: 01-02-2022 Catheterization of vein [facility] Work Phone: Start: 01-02-2022 Insertion of catheter into peripheral vein [facility] Work Phone: Start: 01-02-2022 Measuring intake and output [facility] Work Phone: Start: 01-02-2022 Providing care according to standard [facility] Work Phone: Start: 01-02-2022 Provision of activity privileges [facility] Work Phone: Start: 01-02-2022 [facility] Work Phone: Start: 01-02-2022 Admission procedure [facility] Work Phone: Start: 11-28-2021 US.doppler Lower extremity vein [facility] Work Phone: Start: 10-25-2021 [facility] Work Phone: Start: 07-19-2021 COVID-19 Vaccine (4 - Booster for Moderna series) COVID-19 Vaccine (4 - Booster for Moderna series) [facility] Start: 07-19-2021 COVID-19 Vaccine (4 - Moderna series) COVID-19 Vaccine (4 - Moderna series) [facility] Start: 01-17-2021 DTaP/Tdap/Td Vaccines (2 - Td or Tdap) DTaP/Tdap/Td Vaccines (2 - Td or Tdap) [facility] Start: 07-18-2011 Hepatitis B Vaccines (3 of 3 - 19+ 3-dose series) Hepatitis B Vaccines (3 of 3 - 19+ 3-dose series) [facility] Start: 07-18-2011 Hepatitis B Vaccines (3 of 3 - Risk 3-dose series) Hepatitis B Vaccines (3 of 3 - Risk 3-dose series) [facility] Start: 05-04-2007 Pneumococcal Vaccine: 65+ Years (2 - PCV) Pneumococcal Vaccine: 65+ Years (2 - PCV) [facility] Start: 2002 Zoster Vaccines (1 of 2) Zoster Vaccines (1 of 2) [facility] Start: 1970 Hepatitis C screening Hepatitis C Screening [facility] Start: 1964 Depression Screening Depression Screening [facility] Start: 1962 Diabetic foot examination Diabetes: Foot Exam [facility] Start: 1962 Glaucoma screening Diabetes: Retinopathy Screening [facility] Start: 1962 Preventive dental service Diabetes: Dental Exam [facility] Start: 1952 Hemoglobin A1c measurement Diabetes: Hemoglobin A1C [facility] Start: 1952 Lipid panel Lipid Panel [facility] Start: 1952 Medicare Advantage Annual Wellness Visit (AWV) Medicare Advantage Annual Wellness Visit (AWV) [facility] Start: 1952 Screening for malignant neoplasm of colon [facility] Start: 1952 Screening for osteoporosis Bone Density Scan [facility] Antibody to lupus La protein measurement [facility] Antibody to SS-A measurement [facility] Basic metabolic 2007 panel with ionized calcium - Serum or Plasma [facility] Basic metabolic 2007 panel with ionized calcium - Serum or Plasma [facility] Blood ammonia measurement [facility] Work Phone: Blood ammonia measurement [facility] Blood ammonia measurement [facility] Blood chemistry [facility] C reactive protein [Mass/volume] in Serum or Plasma [facility] CBC W Auto Different ial panel - Blood [facility] Complete blood count [facility] Work Phone: Complete blood count [facility] Comprehensive metabo lic 2000 panel - Serum or Plasma [facility] CT Abdomen and Pelvi s W contrast IV [facility] Cytoplasmic ANCA Screen [facility] DNA double strand Ab [Units/volume] in Serum [facility] DXA Bone [Mass/Area] Bone density [facility] Erythrocyte sedimentation rate [facility] Folate [Mass/volume] in Serum or Plasma [facility] Hemoglobin A1c/Hemoglobin.total in Blood [facility] Hemoglobin A1c/Hemoglobin.total in Blood [facility] Hemoglobin A1c/Hemoglobin.total in Blood [facility] Hepatic function panel [facility] Hepatic function panel [facility] Lipid 1995 panel - S ronnell or Plasma [facility] Lipid 1995 panel - S ronnell or Plasma [facility] MG Breast - bilatera l Screening [facility] Work Phone: Natriuretic peptide. B prohormone N-Terminal [Mass/volume] in Serum or Plasma [facility] Patient Education [facility] Work Phone: Patient referral [facility] Work Phone: Radionuclide gastric emptying study [facility] Respiratory pathogen s DNA and RNA panel - Respiratory specimen by GERONIMO with probe detection [facility] Rheumatoid factor [Presence] in Serum [facility] Streptococcus pyogen es antigen assay Group A Streptococcus Rapid Screen [facility] Work Phone: Thiamine measurement [facility] Thyroid stimulating hormone measurement [facility] Troponin T.cardiac [Mass/volume] in Serum or Plasma by High sensitivity method [facility] Valproate [Mass/volu me] in Serum or Plasma [facility] Viral nucleic acid assay [facility] Vitamin B12 measurement [facility] End: 12-29-2022 XR Chest 2 Views [facility] [employer] Work Phone: Comment on above: Once for 1 Occurrences starting 12/30/19 23 until 12/29/2022 XR Shoulder GE 2 Views [facility] Work Phone: [facility] Immunizations Immunization Date Immunization Notes Care Provider Fa [facility] 02-09-2024 RSV Adult BiValent (Abrysvo) Dr. Mayda Garcia MD Work Phone: [facility] 02-04-2023 influenza, injectabl e, quadrivalent, preservative free Dr. Mayda Garcia Work Phone: [facility] 01-14-2023 Pneumococcal Vaccine PCV20 (Prevnar 20) Dr. Mayda Garcia Work Phone: [facility] 03-10-2022 influenza, injectabl e, quadrivalent, preservative free Dr. Mayda Garcia Work Phone: [facility] 03-10-2022 influenza, seasonal, injectable Dr. Mayda Garcia Work Phone: [facility] 03-10-2022 influenza virus vaccine, unspecified formulation [facility]am Rose [facility]-24-2021 Covid (Moderna) Dr. Yaron Garcia Work Phone: [facility] 08-09-2020 Chuck Connolly) Dr. Yaron Garcia Work Phone: [facility] 07-11-2020 Chuck Arteaga) Dr. Yaron Garcia Work Phone: [facility] 02-10-2020 influenza, injectabl e, quadrivalent, preservative free Dr. Mayda Garcia Work Phone: [facility] 02-10-2020 influenza, seasonal, injectable Dr. Mayda Garcia Work Phone: [facility] 02-10-2020 Seasonal, quadrivale nt, recombinant, injectable influenza vaccine, preservative free Dr. Mayda Garcia Work Phone: [facility] 02-10-[address] Mayda Garcia Work Phone: [facility] 02-10-2019 Dr. Mayda Garcia MD Work Phone: [facility] 03-21-2018 influenza, injectabl e, quadrivalent, preservative free Dr. Mayda Garcia Work Phone: [facility] 03-21-2018 influenza, seasonal, injectable Dr. Mayda Garcia Work Phone: [facility] 03-21-2018 Seasonal, quadrivale nt, recombinant, injectable influenza vaccine, preservative free Dr. Mayda Garcia Work Phone: [facility] 03-03-2016 influenza, injectabl e, quadrivalent, preservative free Dr. Mayda Garcia Work Phone: [facility] 04-11-2015 influenza, injectabl e, quadrivalent, preservative free Dr. Mayda Garcia Work Phone: [facility] Payers Date Payer Category Payer Self-pay [id number] 2021 Medicare [employer]NDEZ [id number] 2021-Present [address] [place] [address] Medicare HMO [id number] 2021 Unknown [id number] 2011 Medicare [id number] Medicare [id number] Medicare [id number] Unknown [id number] Unknown [id number] 2.840.1.455902.3.579.2.462 Unknown [id number] 2.840.1.953752.3.579.2.462 Unknown [id number] 2.840.1.773802.3.579.2.462 Unknown [id number] 2.840.1.224476.3.579.2.462 Unknown [id number] 2.840.1.830228.3.579.2.462 Unknown [id number] 2.840.1.826573.3.579.2.462 Unknown [id number] 2.16840.1.546181.3.579.2.462 Unknown [id number] 2.840.1.551059.3.579.2.462 Unknown [id number] 2.16840.1.191456.3.579.2.462 Unknown [id number] 2.16.840.1.885182.3.579.2.462 Unknown [id number] 2.16.840.1.657921.3.579.2.462 Unknown [id number] 2.16.840.1.462247.3.579.2.462 Unknown [id number] 2.16.840.1.789408.3.579.2.462 Unknown [id number] 2.840.1.265756.3.579.2.462 Unknown [id number] 2.840.1.716353.3.579.2.462 Unknown [id number] 2.840.1.815012.3.579.2.462 Unknown [id number] 2.840.1.183732.3.579.2.462 Unknown [id number] 2.840.1.112385.3.579.2.462 Unknown [id number] 2.840.1.488384.3.579.2.462 Unknown [id number] 2.840.1.807916.3.579.2.462 Unknown [id number] 2.840.1.214078.3.579.2.462 Unknown [id number] 2.840.1.287725.3.579.2.462 Unknown [id number] 2.840.1.571582.3.579.2.462 Unknown [id number] 2.840.1.067743.3.579.2.462 Unknown [id number] 2.840.1.692122.3.579.2.462 Unknown [id number] 2.840.1.703425.3.579.2.462 Unknown [id number] 2.16.840.1.421448.3.579.2.462 Unknown [id number] 2.840.1.919130.3.579.2.462 Unknown [id number] 2.16.840.1.546520.3.579.2.462 Unknown [id number] 2.16.840.1.104841.3.579.2.462 Unknown [id number] 2.16.840.1.454397.3.579.2.462 Unknown [id number] 2.16.840.1.022443.3.579.2.462 Unknown [id number] 2.16.840.1.412102.3.579.2.462 Unknown [id number] 2.16.840.1.066926.3.579.2.462 Unknown [id number] 2.16.840.1.249078.3.579.2.462 Unknown [id number] 2.16.840.1.597401.3.579.2.462 Unknown [id number] 2.16840.1.691891.3.579.2.462 Unknown [id number] 2.16840.1.597690.3.579.2.462 Unknown [id number] 2.16840.1.268995.3.579.2.462 Unknown [id number] 2.16840.1.561797.3.579.2.462 Social History Date Type Detail Facility Start: 10-25-2021 End: 08-19-2023 Tobacco smoking status WAIS Unknown if ever smoked [facility] Start: 09-26-[address] [facility] Start: 09-26-[address] [facility] Start: 09-26-[address] [facility] Start: 09-26-2020 Non-smoker [facility] Start: 1950 Sex Assigned At Female W [facility] Start: 12-22-2022 End: 01-26-2025 Tobacco smoking status WAIS Never smoked tobacco [facility] Start: 12-22-2022 Tobacco use and exposure Smokeless tobacco non-user [facility] Start: 12-23-2022 Alcohol intake Lifetime non-d domenica (finding) [facility] Start: 12-22-2022 End: 01-19-2023 History of Social function [facility] Start: 12-22-2022 End: 01-19-2023 Tobacco use panel [facility] Start: 1950 Sex Assigned At Not on file [facility] Start: 12-13-2022 End: 01-19-2023 Exposure to SARS-CoV-2 (event) Not sure [facility] Start: 12-29-2022 End: 01-19-2023 Alcohol intake Current drinker of alcohol (finding) [facility] Start: 12-29-2022 Alcohol Comment once a year [facility] Within the last year , have you been afraid of your partner or ex-partner? No [facility] Start: 07-14-2024 End: 07-15-2024 Sex Female (finding) [facility] Medical Equipment Procedure Code Equipment Code Equipment Origin al Text Equipment Identifier Dates Blood Sugar Diagnostic (True Metrix Glucose Test Strip) strip Start: 07-17-2021 Blood Sugar Diagnostic (True Metrix Glucose Test Strip) strip Start: 02-07-2020 End: 02-07-2020 Blood Sugar Diagnostic (True Metrix Glucose Test Strip) strip Start: 02-07-2020 End: 07-17-2021 [facility] n lancets Start: 11-11-2019 End: 11-11-2019 Blood [...] Strip) strip Start: 02-07-2020 End: 07-17-2021 [facility] n lancets Start: 11-11-2019 End: 11-11-2019 Blood Sugar Diagnostic (True Metrix Glucose Test Strip) strip Start: 07-17-2021 Blood Sugar Diagnostic (True Metrix Glucose Test Strip) strip Start: 02-07-2020 End: 02-07-2020 Blood Sugar Diagnostic (True Metrix Glucose Test Strip) strip Start: 02-07-2020 End: 07-17-2021 [facility] n lancets Start: 11-11-2019 End: 11-11-2019 Blood Sugar Diagnostic (True Metrix Glucose Test Strip) strip Start: 07-17-2021 Blood Sugar Diagnostic (True Metrix Glucose Test Strip) strip Start: 02-07-2020 End: 02-07-2020 Blood Sugar Diagnostic (True Metrix Glucose Test Strip) strip Start: 02-07-2020 End: 07-17-2021 [facility] n lancets Start: 11-11-2019 End: 11-11-2019 Blood Sugar Diagnostic (True Metrix Glucose Test Strip) strip Start: 07-17-2021 Blood Sugar Diagnostic (True Metrix Glucose Test Strip) strip Start: 02-07-2020 End: 02-07-2020 Blood Sugar Diagnostic (True Metrix Glucose Test Strip) strip Start: 02-07-2020 End: 07-17-2021 [facility] n lancets Start: 11-11-2019 End: 11-11-2019 Blood Sugar Diagnostic (True Metrix Glucose Test Strip) strip Start: 07-17-2021 Blood Sugar Diagnostic (True Metrix Glucose Test Strip) strip Start: 02-07-2020 End: 02-07-2020 Blood Sugar Diagnostic (True Metrix Glucose Test Strip) strip Start: 02-07-2020 End: 07-17-2021 [facility] n lancets Start: 11-11-2019 End: 11-11-2019 Blood Sugar Diagnostic (True Metrix Glucose Test Strip) strip Start: 07-17-2021 Blood Sugar Diagnostic (True Metrix Glucose Test Strip) strip Start: 02-07-2020 End: 02-07-2020 Blood Sugar Diagnostic (True Metrix Glucose Test Strip) strip Start: 02-07-2020 End: 07-17-2021 [facility] n lancets Start: 11-11-2019 End: 11-11-2019 Blood Sugar Diagnostic (True Metrix Glucose Test Strip) strip Start: 07-17-2021 Blood Sugar Diagnostic (True Metrix Glucose Test Strip) strip Start: 02-07-2020 End: 02-07-2020 Blood Sugar Diagnostic (True Metrix Glucose Test Strip) strip Start: 02-07-2020 End: 07-17-2021 [facility] n lancets Start: 11-11-2019 End: 11-11-2019 Blood Sugar Diagnostic (True Metrix Glucose Test Strip) strip Start: 07-17-2021 Lancets (Bd Ultr a Fine Lancets) 33 gauge misc Start: 04-02-2022 Blood Sugar Diagnostic (True Metrix Glucose Test Strip) strip Start: 02-07-2020 End: 02-07-2020 Blood Sugar Diagnostic (True Metrix Glucose Test Strip) strip Start: 02-07-2020 End: 07-17-2021 [facility] n lancets Start: 11-11-2019 End: 11-11-2019 Blood Sugar Diagnostic (True Metrix Glucose Test Strip) strip Start: 07-17-2021 Lancets (Bd Ultr a Fine Lancets) 33 gauge misc Start: 04-02-2022 Blood Sugar Diagnostic (True Metrix Glucose Test Strip) strip Start: 02-07-2020 End: 02-07-2020 Blood Sugar Diagnostic (True Metrix Glucose Test Strip) strip Start: 02-07-2020 End: 07-17-2021 [facility] n lancets Start: 11-11-2019 End: 11-11-2019 Blood Sugar Diagnostic (True Metrix Glucose Test Strip) strip Start: 07-17-2021 Lancets (Bd Ultr a Fine Lancets) 33 gauge misc Start: 04-02-2022 Blood Sugar Diagnostic (True Metrix Glucose Test Strip) strip Start: 02-07-2020 End: 02-07-2020 Blood Sugar Diagnostic (True Metrix Glucose Test Strip) strip Start: 02-07-2020 End: 07-17-2021 [facility] n lancets Start: 11-11-2019 End: 11-11-2019 Blood Sugar Diagnostic (True Metrix Glucose Test Strip) strip Start: 07-17-2021 Lancets (Bd Ultr a Fine Lancets) 33 gauge misc Start: 04-02-2022 Blood Sugar Diagnostic (True Metrix Glucose Test Strip) strip Start: 02-07-2020 End: 02-07-2020 Blood Sugar Diagnostic (True Metrix Glucose Test Strip) strip Start: 02-07-2020 End: 07-17-2021 [facility] n lancets Start: 11-11-2019 End: 11-11-2019 Blood Sugar Diagnostic (True Metrix Glucose Test Strip) strip Start: 07-17-2021 Lancets (Bd Ultr a Fine Lancets) 33 gauge misc Start: 04-02-2022 Blood Sugar Diagnostic (True Metrix Glucose Test Strip) strip Start: 02-07-2020 End: 02-07-2020 Blood Sugar Diagnostic (True Metrix Glucose Test Strip) strip Start: 02-07-2020 End: [facility] Start: 11-11-2019 End: 11-11-2019 Blood Sugar Diagnostic (True Metrix Glucose Test Strip) strip Start: 07-17-2021 Lancets (Bd Ultr a Fine Lancets) 33 gauge misc Start: 04-02-2022 Blood Sugar Diagnostic (True Metrix Glucose Test Strip) strip Start: 02-07-2020 End: 02-07-2020 Blood Sugar Diagnostic (True Metrix Glucose Test Strip) strip Start: 02-07-2020 End: 07-17-2021 [facility] Start: 11-11-2019 End: 11-11-2019 Blood Sugar Diagnostic (True Metrix Glucose Test Strip) strip Start: 07-17-2021 Lancets (Bd Ultr a Fine Lancets) 33 gauge misc Start: 04-02-2022 Blood Sugar Diagnostic (True Metrix Glucose Test Strip) strip Start: 02-07-2020 End: 02-07-2020 Blood Sugar Diagnostic (True Metrix Glucose Test Strip) strip Start: 02-07-2020 End: 07-17-2021 [facility] n lancets Start: 11-11-2019 End: 11-11-2019 Blood [...] Strip) strip Start: 07-17-2021 End: 06-17-2023 [facility] n lancets Start: 11-11-2019 End: 11-11-2019 [...] Test Strip) strip Start: 07-17-2021 End: 06-17-2023 [facility] lanc[facility] Start: 11-11-2019 End: 11-11-2019 [...] Strip) strip Start: 07-17-2021 End: 06-17-2023 [facility] n lancets Start: 11-11-2019 End: 11-11-2019 Lancets [...] Strip) strip Start: 07-17-2021 End: 06-17-2023 [facility] n lancets Start: 11-11-2019 End: 11-11-2019 [...] Test Strip) strip Start: 07-17-2021 End: 06-17-2023 [facility] n lancets Start: 11-11-2019 End: 11-11-2019 [...] Test Strip) strip Start: 07-17-2021 End: 06-17-2023 [facility] Start: 11-11-2019 End: 11-11-2019 Lancets [...] Strip) strip Start: 07-17-2021 End: 06-17-2023 [facility] n lancets Start: 11-11-2019 End: 11-11-2019 [...] Test Strip) strip Start: 07-17-2021 End: 06-17-2023 [facility] n lancets Start: 11-11-2019 End: 11-11-2019 [...] Test Strip) strip Start: 07-17-2021 End: 06-17-2023 [facility] n lancets Start: 11-11-2019 End: 11-11-2019 [...] Assessment Result Facility 11-14-2024 Functional status Ambulates [facility] Work Phone: 01-26-2023 Functional status Chair [facility] Work Phone: 01-24-2023 Functional status Well [facility] Work Phone: 12-19-2022 Functional status Bedrest [facility] Work Phone: 01-03-2022 Functional status Ambulates [facility] Work Phone: 01-03-2022 Functional status None [facility] Work Phone: Mental Status Date Assessment Result Facility 11-14-2024 Cognitive function Voice/Name [facility] Work Phone: 11-13-2024 Cognitive function Awake;Alert;A ppropriate;Follow s Commands [facility] Work Phone: 09-16-2024 Cognitive function Voice/Name [facility] Work Phone: 07-15-2024 Cognitive function Awake;Alert;A ppropriate;Follow s Commands [facility] Work Phone: 01-26-2023 Cognitive function Voice/Name [facility] Work Phone: 12-19-2022 Cognitive function Voice/Name [facility] Work Phone: 12-18-2022 Cognitive function Level Of Cons ciousness Awake;Alert [facility] Work Phone: 08-13-2022 Cognitive function Voice/Name [facility] Work Phone: 06-07-2022 Cognitive function Level Of Cons ciousness Awake;Alert;Appropriate [facility] Work Phone: 06-06-2022 Cognitive function Awake;Alert;A ppropriate;Follow s Commands [facility] Work Phone: 03-14-2022 Cognitive function Voice/Name [facility] Work Phone: 01-03-2022 Cognitive function Voice/Name [facility] Work Phone: 12-17-2021 Cognitive function Level Of Cons ciousness Awake;Alert;Appropriate [facility] Work Phone: 10-25-2021 Cognitive function Awake;Drowsy [facility] Work Phone: Clinical Notes 06-07-2022 to 01-30-2025 Note Date & Type Note Facility 01-30-2025 Progress note Note Date/Time January 30, 2025 2:13pm [facility] [address] [place] [address] OFFICE VISIT Date of Service: 01/30/25 MR#: [id number] Acct: [id number] Patient: LACY ALVARADO Rep #: [id number] : 1950 Provider: Dr. Robin Ruiz MD Age/Sex: 74/F Location: [facility] Status: Signed Intake Vital Signs 01/23/25 07:16 [...] Performing Provider: Pepe Ruiz MD Performing Location: [facility] Administered by: Dorota Carlson on 01/30/25 14:13 Dose Route Admin Location Dispensed Lot Number Expiration Date Pack age NDC NDC Companion Caregiver 1,000 mcg IM left deltoid 1 mL [id number] 08/31/26 [id number] SOMERSET THERAP Comments: The patient presents for [...] Cosigner Signature: Date (if applicable) CC: ~ [facility] Work Phone: 1(150) 258-164309-22-2025 Progress note Author Suzi Appiah [facility] Note Date/Time January 23, 2025 3:42pm [facility] [address] [place] [address] OFFICE VISIT Date of Service: 01/23/25 MR#: [id number] Acct: [id number] Name: LACY ALVARADO Rep #: [id number] : 1950 Provider: SYDNEY Appiah Age/Sex: 74/F Location: [facility] Status: Signed HPI HPI History of Present [...] without any evidence of ischemia. Patient presented [facility] December 2022 with chest pain, echocardiogram [...] underwent CABGx [address] Rose at [facility] 01/01/2023 with preston to the LAD, reverse SVG to the obtuse marginal branch, reverse SVG to the first diagonal artery, and reverse SVG to the posterior descending branch of the RCA. Her postoperative course was uncomplicated and she was discharged to [facility] transitional care unit on postop day 10. [...] Visit Reasons: OVERDUE FOR 8 W FU Systems Project Manager Required: No Is patient in pain?: No [...] denosumab 60 mg/mL subcutaneous 60 mg subcut [id number] bone health 01/19/24 01/23/25 Rx syringe (Prolia) [...] you fallen in the past year?: No [facility] Medical History (Reviewed 01/23/25 @ 15:21 by Suzi Appiah LEAD SIMULATION MODELING ENGINEER, LEAD SIMULATION MODELING ENGINEER-C) Keloid scar of skin Vertigo Chest pain [...] FOOT HEEL SPUR 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 Rheumatoid arthritis Diabetes type 2, controlled Hives Seasonal allergies Hyperlipidemia Chronic diastolic CHF (congestive heart failure) Surgical History (Reviewed 01/23/25 @ 15:21 by Suzi Appiah LEAD SIMULATION MODELING ENGINEER, LEAD SIMULATION MODELING ENGINEER-C) History of coronary artery bypass graft History of cardiac catheterization History of left heart catheterization (09/20/18) History of coronary artery stent placement (03/22/18) History of carpal tunnel surgery History of section H/O: hysterectomy Family History (Reviewed 01/23/25 @ 15:21 by Suzi Appiah LEAD SIMULATION MODELING ENGINEER, LEAD SIMULATION MODELING ENGINEER-C) Grandmother Alcoholism Cancer Arthritis Mother Alcoholism Diabetes blood clots Hypertension Grandfather Heart disease Sister Thyroid disorder Other Breast cancer Cervical cancer Colon cancer Social History (Reviewed 01/23/25 @ 15:21 by Suzi Appiah LEAD SIMULATION MODELING ENGINEER, LEAD SIMULATION MODELING ENGINEER-C) household members: none housing: apartment Smoking Status: [...] Negative for SOB at rest or SOB orthopnea\SOB lying down GI GI: Positive for nausea; [...] bypass graft: Status: Chronic Comment: 01/01/2023 at [facility]: bypass surgery x4 with an PRESTON to [...] Orders Lipid Profile 3 Months Suzi Appiah LEAD SIMULATION MODELING ENGINEER, LEAD SIMULATION MODELING ENGINEER-C E78.5 - Hyperlipidemia, unspecified Liver Profile 3 Months Suzi Appiah NP, LEAD SIMULATION MODELING ENGINEER-C E78.0 - Pure hypercholesterolemia,E78.00 - Pure hypercholesterolemia, unspecified Medications: New atorvastatin 80 mg PO QHS 90 tabs 3RF cholesterol Suzi Appiah NP, LEAD SIMULATION MODELING ENGINEER-C evolocumab (Repatha SureClick) 140 mg subcut Q2W 2 mL 6RF Suzi Appiah LEAD SIMULATION MODELING ENGINEER, LEAD SIMULATION MODELING ENGINEER-C Changed From furosemide (Lasix) 40 mg PO [...] updated, as necessary. Follow Up: 6 Months (LEAD SIMULATION MODELING ENGINEER/PA) Coding Level of Care Code Off vis,est,level [...] signed by Suzi GRIMES> Date _ Suzi Espinoza Signature: Date (if applicable) CC: Dr. Mayda Garcia MD ~ [facility] Work Phone: 1(579) 176-109009-20-2025 Radiology Diagnostic study [facility]09-18-2025 Progress note Author Shruthi Costa [facility] Note Date/Time January 19, 2025 3:13pm [facility] [address] [facility] [place] [address] OFFICE VISIT Date of Service: 01/19/25 MR#: [id number] Acct: [id number] Name: JENNYLACY L Rep #: [id number] : 1950 Provider: SYNDEY Costa Age/Sex: 74/F Location: [facility] Status: Signed Intake Vital Signs 11/16/24 11:04 [...] Reasons: Stomach Pain Chief Complaint: abdominal pain Systems Project Manager Required: No Accompanied by: Self Is patient [...] denosumab 60 mg/mL subcutaneous 60 mg subcut [id number] bone health 01/19/24 01/19/25 Rx syringe (Prolia) [...] time and her bowels have never been normal. Has struggled with contipation most of her life. [facility] Medical History Keloid scar of skin [...] FOOT HEEL SPUR 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 Rheumatoid arthritis [...] and obese Orientation: alert and oriented x3 HENMT Head: normocephalic Ears: hearing grossly normal bilaterally [...] Smoking Screening Smoking Status: Never smoker 01/19/25 6318 <Electronically signed by Shruthi GRIMES> Date _ Shruthi GRIMES Cosign Signature: Date (if applicable) CC: ~ [facility] Work Phone: 1(236) 631-539607-14-2025 [facility]07-14-2025 Progress [facility] Note Date/Time November 14, 2024 12:2 8pm [facility] Medical Records Department [address] [place] [address] Progress Note - Hospitalist 11/14/24 1008 MR#: [id number] Acct: [id number] Name: LACY ALVARADO Rep #:[id number] 1 : 1950 73 From: Maurilio Bradford MD PCP: Dr. Mayda Garcia MD Status:A DM DELFIN Location: [place] [address] Reason for Visit Chief Complaint: chest pain [...] Neut % (Auto) 55.5, Lymph % (Auto) 35.9,Rogers % (Auto) 6.3, Eos % (Auto) 1.7, [...] 230 H, LDL Cholesterol, Calc 162, VLDL [id number], HDL Cholesterol 52, Cholesterol/HDL Ratio 4.47 Micro: Microbiology 11/13/24 22:25 Mucosa - Nose Respiratory Panel (PCR) - Final Radiography Diagnostic Testing: Radiology Impression Chest X-Ray 11/13/24 17:17 IMPRESSION: Mildly prominent interstitial markings could be the result of hypoventilatory change, pulmonary edema, or atypical infection. Reading Location: [id number] Rhythm Strip Rhythm Strip: Sinus Rhythm Rate: [...] is a 73-year-old female who presented to [facility] ED on 11/13/2024 with chest pain. 1. Chest pain ? Patient was placed on a monitored bed VT ruled out with serial cardiac enzymes. Patient [...] Subcu Lovenox Charges/Coding Visit Charges Inpatient E&M: 15481 Subs Hosp L2 11/14/24 1228 <Electronically signed by Maurilio Bradford MD> Cosigner Signature (if applicable): CC: ~ Signed [facility] Work Phone: 1(844) 625-728407-14-2025 Hospital Discharge instructionsAdditional Instructions Date [facility]: [facility] Work Phone: 1(875) 213-870407-14-2025 Consult note Author Aleksandr Salinas [facility] Note Date/Time November 14, 2024 8:[address] [facility] Medical Records Department [address] [place] [address] Consultation - Cardiology 11/14/24 0801 MR#: [id number] Acct: [id number] Name: LACY ALVARADO Rep #:[id number] 1 : 1950 73 From: Aleksandr Salinas MD PCP: Dr. Mayda Garcia MD Status:A DM DELFIN Location: [place] [address] Assessment & Plan Assessment/Plan (1) Chest pain: [...] Type 2 diabetes mellitus: QUALIFIERS: Diabetes mellitus termite control technician insulin use: without termite control technician use Diabetes mellitus complication status: with other [...] the right coronary artery December 2022 at [facility] by Dr. Rose. The patient spent 10 [...] Reason for Consultation: Chest pain HPI Narrative: ALCY ALVARADO, is a 73 F who presents with a sharp left-sided chest pain that radiated around to the left side of her chest and into her arm. She says this reminds her of what she had prior to her bypass graft surgery. However this hasbeen ongoing since early September 2024 was just much more intense yesterday after restorationist when she was sitting at home. Patient has been evaluated in September in the emergency department with negative enzymes. She has been evaluated in the [facility] office and felt thiswas related [...] ibuprofen, and hydroxychloroquine for her rheumatoid arthritis. [facility] Medical History Keloid scar of skin [...] FOOT HEEL SPUR 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 Rheumatoid arthritis [...] denosumab 60 mg/mL subcutaneous 60 mg subcut [id number] bone health 01/19/24 09/13/24 Rx syringe (Prolia) [...] (Reviewed 09/28/24 @ 12:57 by Vanita Venegas LEAD SIMULATION MODELING ENGINEER, LEAD SIMULATION MODELING ENGINEER-C) Grandmother Alcoholism Cancer Arthritis Mother Alcoholism Diabetes [...] (Reviewed 09/28/24 @ 12:57 by Vanita Venegas LEAD SIMULATION MODELING ENGINEER, LEAD SIMULATION MODELING ENGINEER-C) household members: none housing: apartment Smoking Status: [...] 13% Risk Charges/Coding Visit Charges Inpatient E&M: 25348 Init Hosp L2 Objective Data Vital Signs: [...] Neut % (Auto) 55.5, Lymph % (Auto) 35.9,Rogers % (Auto) 6.3, Eos % (Auto) 1.7, [...] 230 H, LDL Cholesterol, Calc 162, VLDL [id number], HDL Cholesterol 52, Cholesterol/HDL Ratio 4.47 Micro: [...] % (Auto) 55.5, Lymph % (Auto) 35.9, Rogers % (Auto) 6.3, Eos % (Auto) 1.7, [...] pulmonary edema, or atypical infection. Reading Location: [id number] 11/14/24 0818 <Electronically signed by Aleksandr Salinas MD> Cosigner Signature (if applicable): CC: Dr. Mayda Garcia MD~ Signed [facility] Work Phone: 1(661) 288-486007-14-2025 Discharge summary Author Turner Armendariz [facility] Note Date/Time November 13, 2024 11:[address] [facility] Medical Records Department [address] [facility] [place] [address] Emergency Department Summary 11/13/24 MR#: [id number] Acct: [id number] Name: LACY ALVARADO Rep #:[id number] 2 : 1950 73 From: Turner Armendariz DO PCP: Dr. Mayda Garcia MD Status:A DM DELFIN Location: [address] History of Present Illness Chief Complaint: Chest Pain Detail of Chief Complaint: Chest pain Informant: patient Narrative Narrative: Patient presents to the emergency department complaint chest pain. She presentsvia EMS. She presents from home. She states that she had just gotten home fromrestorationist and was sitting when she developed sudden onset of sharp pain beneath herleft breast that radiated to her back and into her left arm. This pain remains. Patient states the pain reminded her of a year ago when she required four-vessel CABG at [facility]. Patient rates her pain an 8 out of 10 currently. She states the pain is worse with deep breath. She is currently not anticoagulated. She denies recent travel or surgery. She denies recent illness. Patient states the pain made her nauseated and she was sweaty. [facility] Medical History (Updated 11/13/24 @ 19:58 [...] FOOT HEEL SPUR 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 Rheumatoid arthritis [...] denosumab 60 mg/mL subcutaneous 60 mg subcut [id number] bone health 01/19/24 Unknown Rx syringe (Prolia) [...] (Reviewed 09/28/24 @ 12:57 by Vanita Venegas LEAD SIMULATION MODELING ENGINEER, LEAD SIMULATION MODELING ENGINEER-C) Grandmother Alcoholism Cancer Arthritis Mother Alcoholism Diabetes [...] (Reviewed 09/28/24 @ 12:57 by Vanita Venegas LEAD SIMULATION MODELING ENGINEER, LEAD SIMULATION MODELING ENGINEER-C) household members: none housing: apartment Smoking Status: [...] % (Auto) 55.5 Lymph % (Auto) 35.9 Rogers % (Auto) 6.3 Eos % (Auto) 1.7 [...] pulmonary edema, or atypical infection. Reading Location: [facility] 1 view chest x-ray obtained interpreted [...] coronary syndrome) Disposition Disposition: Acute Care Hospital [facility] What to do if you have Problems For any increased pain, shortness of breath, bleeding, nausea or vomiting, chestpain, or any unexpected problems, contact your Primary Care Provider. Call [facility] ([phone]) or report to the closest Emergency Room. Call 911 if necessary. 11/13/242325 <Electronically signed by Turner Armendariz DO> Cosigner Signature (if applicable): CC: Dr. Mayda Garcia MD ~ Signed [facility] Work Phone: 1([phone]) 240-829007-13-2025 History and physical note Author Edwin Kaplan [facility] Note Date/Time November 13, 2024 8:[address] [facility] Medical Records Department [address] [place] [address] H&P Exam - Hospitalist 11/13/242001 MR#: [id number] Acct: [id number] Name: LACY ALVARADO Rep #:[id number] : 1950 73 From: Edwin martin DO PCP: Dr. Mayda Garcia MD Status:R EG ER Location: ED HPI - General General Date of Service: 11/13/24 Chief Complaint: chest pain HPI Narrative LACY ALVARADO, is a 73 F who presented to [facility] ED on 11/13/2024 with chest pain. Medical history significant for CAD with stenting en7700 and CABG x 4 in December 2022, [...] feeling fine this morning and went to restorationist, but shortly after she got home and [...] currently. Will be admitted for further management. [facility] Medical History (Updated 11/13/24 @ 19:[address] Turner Armendariz, ) Keloid scar of skin Vertigo Chest pain [...] FOOT HEEL SPUR 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 Rheumatoid arthritis [...] denosumab 60 mg/mL subcutaneous 60 mg subcut [id number] bone health 01/19/24 Unknown Rx syringe (Prolia) [...] (Reviewed 09/28/24 @ 12:57 by Vanita Venegas LEAD SIMULATION MODELING ENGINEER, LEAD SIMULATION MODELING ENGINEER-C) Grandmother Alcoholism Cancer Arthritis Mother Alcoholism Diabetes [...] (Reviewed 09/28/24 @ 12:57 by Vanita Venegas LEAD SIMULATION MODELING ENGINEER, LEAD SIMULATION MODELING ENGINEER-C) household members: none housing: apartment Smoking Status: [...] Neut % (Auto) 55.5, Lymph % (Auto) 35.9,Rogers % (Auto) 6.3, Eos % (Auto) 1.7, [...] pulmonary edema, or atypical infection. Reading Location: [id number] Assessment & Plan Assessment/Plan (1) Chest pain: PLAN: Plan Patient is a 73-year-old female who presented to [facility] ED on 11/13/2024 with chest pain. 1. [...] 75 minutes. Charges/Coding Visit Charges Inpatient E&M: 98518 Init Hosp L3 11/13/242049 <Electronically signed by Edwin Kaplan DO> Cosigner Signature (if applicable): CC: Dr. Edwin Kaplan DO; Dr. Mayda Garcia MD~ Signed [facility] Work Phone: 1([phone]) 892-760807-13-2025 Radiology Diagnostic study [facility]07-07-2025 Evaluation note* Diagnosis Onset Date Resolution Status [...] Chronic diastolic CHF (congestive heart failure) chronic [facility] 2024 3:07pm Essential (primary) hypertension chronic January 23, 2025 3:07pm History of coronary artery bypass graft chronic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 Physical Therapy Daily Treatment Note NAME: Lacy Alvarado : 1950 Date of Service: 01/09/2023 Discharge Recommendations: IP Rehab, Alf Facility PT Equipment Recommendations Equipment Needed: No [...] and strength to complete stairs safely with Gem to avoid a fall. Performance Deficits/Impairments: Decreased functional mobility , Decreased endurance, Increased pain, Decreased ADL status, Decreased strength, Decreased posture, Decreased balance Patient Diagnosis(es): The primary encounter diagnosis was CAD in [place] artery. A diagnosis of Coronary artery disease involving coronary bypass graft, unspecified whether angina present, unspecified whether [place] or transplanted heart was also pertinent to this visit. has a past medical history of CHF (congestive heart failure) ([facility]/HCC) ([facility]), Diabetes mellitus ([facility]), GERD (gastroesophageal reflux disease), Hyperlipidemia, Hypertension, RA (rheumatoid arthritis) ([facility]), Seizure ([facility]), Seizures ([facility]), and Sleep apnea. has a [...] / Caregiver Present: No Diagnosis: CAD in [place] artery s/p CABG on 01/01 Follows Commands: [...] Code Treatment Minutes: 30 Minutes (FA, GT) JUNIOR ELECTRICAL ENGINEER wore PPE in compliance with hospital guidelines and regulation when treating this patient. Samaria Li, JUNIOR ELECTRICAL ENGINEER * Kassy Tabares, FIELD SUPERINTENDENT - TANK CLEANING SUPERVISOR - 01/09/2023 6:04 AM EDT Images from the original note were not included. Cardiothoracic Surgery/[facility] Progress Note PATIENT NAME: Lacy Alvarado DATE: 01/09/23 HPI: 72 y.o. female was referred by Dr. Bhanu Milian. Patient was admitted on 12/18/22 to [facility] with CP history of CHF, CAD, DM [...] nursing. Voiding appropriately. SNF pending -->would like [facility] if able. Review of Systems Constitutional: [...] SubQ Disposition: TBD; pending discharge to hopefully [facility]. Central Line: []Yes [x] No Arterial Line: []Yes [x] No Araya: []Yes [x] No Restraints: []Yes [x] No Patient discussed and plan of day developed from multidisciplinary rounds between Cardiothoracic Surgery (Cardiothoracic Surgeon, SONYA) and Critical Care Attending Cardiac Core Medications: ASA, Statin, and BB EF: normal 01/01/23 Blood Conservation: Transfused postoperatively Radar Air Traffic Controller: [facility] * Samaria Espinozapeter, JUNIOR ELECTRICAL ENGINEER - 01/08/2023 10:17 AM EDT Physical Therapy Facility/Department: [facility] Physical Therapy Daily Treatment Note NAME: Lacy Alvarado : 1950 Date of Service: 01/08/2023 Discharge Recommendations: IP Rehab, Alf Facility PT Equipment Recommendations Equipment Needed: No [...] and strength to complete stairs safely with Gem to avoid a fall. Performance Deficits/Impairments: Decreased functional mobility , Decreased endurance, Increased pain, Decreased ADL status, Decreased strength, Decreased posture, Decreased balance Treatment Diagnosis: limited mobility Decision Making: Medium Complexity Patient Diagnosis(es): The primary encounter diagnosis was CAD in [place] artery. A diagnosis of Coronary artery disease involving coronary bypass graft, unspecified whether angina present, unspecified whether [place] or transplanted heart was also pertinent to this visit. has a past medical history of CHF (congestive heart failure) (CMS/HCC) ([facility]), Diabetes mellitus (HCC), GERD (gastroesophageal reflux disease), Hyperlipidemia, Hypertension, RA (rheumatoid arthritis) ([facility]), Seizure (HCC), Seizures (HCC), and [...] / Caregiver Present: No Diagnosis: CAD in [place] artery s/p CABG on 01/01 Follows Commands: [...] Treatment Minutes: 39 Minutes (FA, GT. TP) JUNIOR ELECTRICAL ENGINEER wore PPE in compliance with hospital guidelines and regulation when treating this patient. Samaria Li, JUNIOR ELECTRICAL ENGINEER * Chandler Ram, FIELD SUPERINTENDENT - TANK CLEANING SUPERVISOR - 01/08/2023 6:04 AM EDT Images from the original note were not included. Cardiothoracic Surgery/[facility] Progress Note PATIENT NAME: Lacy Alvarado DATE: 01/08/23 HPI: 72 y.o. female was referred by Dr. Bhanu Milian. Patient was admitted on 12/18/22 to [facility] with CP history of CHF, CAD, DM [...] Conversationsongoing with family about living arrangements at [place]. Review of Systems Constitutional: Negative for chills, [...] EF: Normal (01/01/23) Blood Conservation: Transfused post-op. Radar Air Traffic Controller: [facility] * Talita Haque RD - [...] provided with heart healthy diet handout with [facility] RD phone number at initial assessment. [...] muscle mass loss Fluid Accumulation: Mild Extremities Console Attendant Strength: Not Performed Nutrition Assessment: Pt with PMH including HTN, DM, HLD, CHF, RA, epilepsy, GERD, LINA, prior PCI, presented to [facility] on 01/01/23 for CABG after recent admissiont to [facility] on 12/18/22 and had LHC which showed [...] On: Kcal/kg Weight Used for Energy Requirements: Hunter (25-30 kcal/kg) Weight for Energy Calculation (kg): 50 kg Total Energy Requirements (kcals/day): 4913-3003 Weight Used for Protein Requirements: Hunter (1.2-1.5 g/kg) Weight in Kg Used for [...] Weight: 78 kg (172 lb) (no method) Hunter Body Weight (lbs) (Calculated): 110 lbs Hunter Body Weight (Kg) (Calculated): 50 kg % Hunter Body Weight (Calculated): 157.9 % BMI (kg/m2) [...] to determine Talita Haque RD, LD Contact: *[phone] or via [employer] chat * Kristel Beard MD - 01/07/2023 11:03 AM EDT Department of Internal Medicine Division of Endocrinology, Diabetes, & Metabolism Endocrinology Note Patient Name: Lacy Alvarado : 1950 AGE: 72 y.o. Room/Bed: [facility]/[address] Admission Date: 01/01/2023 Visit Date: 01/07/2023 Reason for Endocrine Consult: post op heart Provider/Team Requesting Consult: cts PCP: MAYDA GARCIA Outpt Bridge/Structure Inspection Team Leader: No ASSESSMENT: DM 2 with hyperglycemia without termite control technician insulin Stress hyperglycemia CAD s/p Cabgx4 PLAN: [...] found for: CHOLHDLRATIO No results found for: [id number] No results found for: TSH, M8XBHEU, D5JPSDM, THYROIDAB Radiology reportsas per the Radiologist Radiology: ECG 12 lead Result Date: 01/01/2023 Sinus rhythm History/Other: Past Medical History: Past Medical History: Diagnosis Date CHF (congestive heart failure) ([facility]/HCC) (HCC) Diabetes mellitus (HCC) GERD (gastroesophageal [...] date of this note. * Samaria Li, JUNIOR ELECTRICAL ENGINEER - 01/07/2023 10:41 AM EDT Physical Therapy Facility/Department: [facility] Physical Therapy Daily Treatment Note NAME: Lacy Alvarado : 1950 Date of Service: 01/07/2023 Discharge Recommendations: IP Rehab, Alf Facility PT Equipment Recommendations Equipment Needed: No [...] The primary encounter diagnosis was CAD in [place] artery. A diagnosis of Coronary artery disease involving coronary bypass graft, unspecified whether angina present, unspecified whether [place] or transplanted heart was also pertinent to this visit. has a past medical history of CHF (congestive heart failure) ([facility]/HCC) ([facility]), Diabetes mellitus ([facility]), GERD (gastroesophageal reflux disease), Hyperlipidemia, Hypertension, RA (rheumatoid arthritis) ([facility]), Seizure ([facility]), Seizures ([facility]), and Sleep apnea. has a [...] / Caregiver Present: No Diagnosis: CAD in [place] artery s/p CABG on 01/01 Follows Commands: [...] Minutes: 42 Minutes (FA, GT x 2) JUNIOR ELECTRICAL ENGINEER wore PPE in compliance with hospital guidelines and regulation when treating this patient. Samaria Li, JUNIOR ELECTRICAL ENGINEER * Shruthi Weaver, FIELD SUPERINTENDENT - TANK CLEANING SUPERVISOR - 01/07/2023 5:53 AM EDT Images from the original note were not included. Cardiothoracic Surgery/[facility] Progress Note PATIENT NAME: Lacy Alvarado DATE: 01/07/23 HPI: 72 y.o. female was referred by Dr. Bhanu Milian. Patient was admitted on 12/18/22 to [facility] with CP history of CHF, CAD, DM [...] 2.7* 2.4* CBC: Recent Labs 01/05/23 0041 01/06/234 01/07/23 0247 WBC 6.7 5.6 5.4 HGB [...] EF: 01/01: Normal Blood Conservation: Transfused postop Radar Air Traffic Controller: [facility] * Wendy Curran - 01/06/2023 [...] high-level IADLs, Decreased ROM,Decreased balance Assessment: OT clayton completed. Pt is s/p CABG 01/01. Pt [...] The primary encounter diagnosis was CAD in [place] artery. A diagnosis of Coronary artery disease involving coronary bypass graft, unspecified whether angina present, unspecified whether [place] or transplanted heart was also pertinent to this visit. has a past medical history of CHF (congestive heart failure) (CMS/HCC) ([facility]), Diabetes mellitus ([facility]), GERD (gastroesophageal reflux disease), Hyperlipidemia, Hypertension, RA (rheumatoid arthritis) ([facility]), Seizure ([facility]), Seizures ([facility]), and Sleep apnea. has a [...] Daily Activity Raw Score: 22 ADL Inpatient [facility] G-Code Modifier: CJ Goals Encounter Problems [...] Plan of Care supervision is transferred to [facility] Rehab Occupational Therapist. Goals and/or treatment plan was established in collaboration with patient/family/other representatives. Wendy Curran S/OT * Samaria Li PTA - 01/06/2023 10:07 AM EDT Physical Therapy Facility/Department: [facility] Physical Therapy Daily Treatment Note NAME: Lacy [...] The primary encounter diagnosis was CAD in [place] artery. A diagnosis of Coronary artery disease involving coronary bypass graft, unspecified whether angina present, unspecified whether [place] or transplanted heart was also pertinent to this visit. has a past medical history of CHF (congestive heart failure) (CMS/HCC) ([facility]), Diabetes mellitus (HCC), GERD (gastroesophageal reflux disease), Hyperlipidemia, Hypertension, RA (rheumatoid arthritis) ([facility]), Seizure (HCC), Seizures (HCC), and [...] / Caregiver Present: No Diagnosis: CAD in [place] artery s/p CABG on 01/01 Follows Commands: [...] Treatment Minutes: 40 Minutes (FA, GT, TP) JUNIOR ELECTRICAL ENGINEER wore PPE in compliance with hospital guidelines and regulation when treating this patient. Samaria Li, JUNIOR ELECTRICAL ENGINEER * Shruthi Weaver, FIELD SUPERINTENDENT - TANK CLEANING SUPERVISOR - 01/06/2023 6:06 AM EDT Images from the original note were not included. Cardiothoracic Surgery/[facility] Progress Note PATIENT NAME: Lacy Alvarado DATE: 01/06/23 HPI: 72 y.o. female was referred by Dr. Bhanu Milian. Patient was admitted on 12/18/22 to [facility] with CP history of CHF, CAD, DM [...] EF: 01/01: Normal Blood Conservation: Transfused postop Radar Air Traffic Controller: [facility] Associated attestation - [place] [...] Alvarado : 1950 AGE: 72 y.o. Room/Bed: [facility] A Admission Date: 01/01/2023 Visit Date: 01/05/2023 Reason for Endocrine Consult: post op heart Provider/Team Requesting Consult: edwin PCP: MAYDA GARCIA Outpt Bridge/Structure Inspection Team Leader: No ASSESSMENT: DM 2 with hyperglycemia without [...] found for: CHOLHDLRATIO No results found for: [id number] No results found for: TSH, P2EVNAK, V1KLDWX, THYROIDAB Radiology reportsas per the Radiologist Radiology: [...] this note. * Chandler Ram, GORDO - TANK CLEANING SUPERVISOR - 01/05/2023 6:19 AM EDT Images from the original note were not included. Cardiothoracic Surgery/[facility] Progress Note PATIENT NAME: Lacy Alvarado DATE: 01/05/23 HPI: Lacy Alvarado is a 72 y.o. female was referred to us by Dr. Bhanu Milian. 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 Patient also had an echo done which showed mild (1+) tricuspid valve insufficiency. Dr Rsoe office note 12/23/2022. She presents for CABG [...] Temporal BMI (Calculated): 32 BMP: Recent Labs 01/03/231301/04/2330801/05/2340 NA 136 135 137 K 4.4 3.9 3.8 CL 103 100 98 CO2 25 26 27 BUN 23* 34* 43* CREATININE 0.80 1.11* 1.25* CALCIUM 8.5 8.5 8.5 MG 2.3 2.6* 2.8* CBC: Recent Labs 01/03/23 0014 01/04/2330801/05/23 0041 WBC 8.6 7.9 6.7 HGB 10.1* [...] Nomal (SIS 01/01/23) Blood Conservation: Transfused post-op. Radar Air Traffic Controller: [facility] Associated attestation - [place] [...] 01/04/2023 1:07 PM EDT Physical Therapy Facility/Department: [facility] Physical Therapy Daily Treatment Note [...] The primary encounter diagnosis was CAD in [place] artery. A diagnosis of Coronary artery disease involving coronary bypass graft, unspecified whether angina present, unspecified whether [place] or transplanted heart was also pertinent to this visit. has a past medical history of CHF (congestive heart failure) (CMS/HCC) ([facility]), Diabetes mellitus (HCC), GERD (gastroesophageal reflux disease), Hyperlipidemia, Hypertension, RA (rheumatoid arthritis) ([facility]), Seizure ([facility]), Seizures ([facility]), and Sleep apnea. has a [...] / Caregiver Present: No Diagnosis: CAD in [place] artery s/p CABG on 01/01 Follows Commands: [...] Plan of Care supervision is transferred to [facility] Rehab Department Physical Therapist. Ambreen Avitia PT * Angela Smith MD - 01/04/2023 10:34 AM EDT Department of Internal Medicine Division of Endocrinology, Diabetes, & Metabolism Endocrinology Note Patient Name: Lacy Alvarado : 1950 AGE: 72 y.o. Room/Bed: T1-103/T1-103 A Admission Date: 01/01/2023 Visit Date: 01/04/2023 Reason for Endocrine Consult: post op heart Provider/Team Requesting Consult: cts PCP: MAYDA GARCIA Outpt Bridge/Structure Inspection Team Leader: No ASSESSMENT: DM 2 with hyperglycemia without [...] found for: CHOLHDLRATIO No results found for: [id number] No results found for: TSH, H0MBDSD, K2WIEHK, THYROIDAB Radiology reportsas per the Radiologist Radiology: [...] date of this note. * Chandler Ram, FIELD SUPERINTENDENT - TANK CLEANING SUPERVISOR - 01/04/2023 6:02 AM EDT Images from the original note were not included. Cardiothoracic Surgery/[facility] Progress Note PATIENT NAME: Lacy Alvarado DATE: 01/04/23 HPI: Lacy Alvarado is a 72 y.o. female was referred to us by Dr. Bhanu Milian. Patient was admitted on12/18/22 to [facility] with CP history of CHF, CAD, DM [...] Nomal (SIS 01/01/23) Blood Conservation: Transfused post-op. Radar Air Traffic Controller: [facility] * Angela Smith MD - 01/03/2023 9:18 AM EDT Department of Internal Medicine Division of Endocrinology, Diabetes, & Metabolism Endocrinology Note Patient Name: Lacy Alvarado : 1950 AGE: 72 y.o. Room/Bed: T1-103/T1-103 A Admission Date: 01/01/2023 Visit Date: 01/03/2023 Reason for Endocrine Consult: post op heart Provider/Team Requesting Consult: edwin PCP: MAYDA Marspt Bridge/Structure Inspection Team Leader: No ASSESSMENT: DM 2 with hyperglycemia without [...] found for: CHOLHDLRATIO No results found for: [id number] No results found for: TSH, R4ACEMH, I3YDPSU, THYROIDAB Radiology reportsas per the Radiologist Radiology: [...] date of this note. * Chandler Ram, FIELD SUPERINTENDENT - TANK CLEANING SUPERVISOR - 01/03/2023 5:56 AM EDT Images from the original note were not included. Cardiothoracic Surgery/CCM Progress Note PATIENT NAME: Lacy Alvarado DATE: 01/03/23 HPI: Lacy Alvarado is a 72 y.o. female was referred to us by Dr. Bhanu Milian. Patient was admitted on12/18/22 to [facility] with CP history of CHF, CAD, DM [...] Nomal (SIS 01/01/23) Blood Conservation: Transfused post-op. Radar Air Traffic Controller: [facility] * Aleksandr Higuera, PT - 01/02/2023 11:02 AM EDT Physical Therapy Facility/Department: [facility] Physical Therapy Initial Evaluation NAME: Lacy Alvarado [...] The primary encounter diagnosis was CAD in [place] artery. A diagnosis of Coronary artery disease involving coronary bypass graft, unspecified whether angina present, unspecified whether [place] or transplanted heart was also pertinent to this visit. has a past medical history of CHF (congestive heart failure) (CMS/HCC) ([facility]), Diabetes mellitus (HCC), GERD (gastroesophageal [...] / Caregiver Present: No Diagnosis: CAD in [place] artery s/p CABG on 01/01 Follows Commands: [...] Plan of Care supervision is transferred to [facility] Rehab Department Physical Therapist. Aleksandr Higuera, PT * Cassandra Olivarez, FIELD SUPERINTENDENT - BI DATA ARCHITECT - 01/02/2023 9:28 AM EDT Department of Internal Medicine Division of Endocrinology, Diabetes, & Metabolism Endocrinology Note Patient Name: Lacy Alvarado : 1950 AGE: 72 y.o. Room/Bed: [facility] A Admission Date: 01/01/2023 Visit Date: 01/02/2023 Reason for Endocrine Consult: post op heart Provider/Team Requesting Consult: cts PCP: MAYDA GARCIA Outpt Bridge/Structure Inspection Team Leader: No ASSESSMENT: Cad s/p Cabgx4 Dm2 with [...] found for: CHOLHDLRATIO No results found for: [id number] No results found for: TSH, P4QWJTK, G7ENMND, THYROIDAB Radiology reportsas per the Radiologist Radiology: [...] care as documented in note. * Chandler Ram, GORDO - TANK CLEANING SUPERVISOR - 01/02/2023 5:56 AM EDT Images from the original note were not included. Cardiothoracic Surgery/CCM Progress Note PATIENT NAME: Lacy Alvarado DATE: 01/02/23 HPI: Lacy Alvarado is a 72 y.o. female was referred to us by Dr. Bhanu Milian. Patient was admitted on12/18/22 to [facility] with CP history of CHF, CAD, DM [...] Nomal (SIS 01/01/23) Blood Conservation: Transfused post-op. Radar Air Traffic Controller: [facility] Associated attestation - Carlos Chavarria DO [...] care time 35 minutes documented in this [facility]09-09-2023 Note* Care Coordination - Alaina Truong RN - 01/10/2023 2:11 PM EDT Images from the original note were not included. CARE COORDINATION DAILY NOTE/UPDATE Medical Plan: sp CABG x 3 POD # 9. Discharge Plan: [facility] Discharge Barriers: pending medical clearance Received a message from Anna COLLINS I heard from [facility] okay to admit. Stated by Shruthi Rolando if you have any questions. Call placed to Shruthi Rolando to confirm and make arrangements, no answer, [...] RN 01/02/2023 2:07 PM 01/06/2023 Shruthi Weaver, FIELD SUPERINTENDENT - TANK CLEANING SUPERVISOR 01/01/2023 11:16 AM 01/06/2023 Azam Rose MD 01/01/2023 5:45 AM Length of Stay (Days): 9 GMLOS: 5.9 [facility]* Care Coordination - Delores Mullins RN - 01/09/2023 10:21 AM EDT Images from the original note were not included. Care Management Progress Note Patient remains on HLU sp CABG x 3 POD # 8. [facility] can accept, spoke [...] Delores Mullins RN 01/02/2023 2:07 PM 01/06/2023 GORDO Villanueva CNP 01/01/2023 11:16 AM 01/06/2023 Azam Rose MD 01/01/2023 5:45 AM Length of Stay (Days): 8 GMLOS: 5.9 [facility]82-[facility]5 [facility] Discharge instructions* Discharge Instructions* GORDO Felix CNP - 01/09/2023 8:42 AM EDT Cardiothoracic Surgery: Symptom Management Office phone number: [phone] Office is open 8:30 am -4 pm. [...] Call cardiothoracic surgery line for further instructions: [phone] Office is open 8:30 am -4 pm. [...] Problems Problem List * (Principal) CAD in [place] artery Allergic disorder Amnesia Arthritis Overview Signed [...] Dissociative disorder DM2 (diabetes mellitus, type 2) ([facility]) Overview Signed 01/01/2023 3:09 PM by Juan J Zuluaga MD Last Assessment & Plan: When she wakes up in the morning sugars are in the 120 range. Those numbers are running in the range of 118 or more depends on what she eats. Seizure disorder (CMS/HCC) (HCC) Epilepsy ([facility]) Overview Signed 01/01/2023 3:09 PM [...] mal Last one was in september [place]. 2015.her neurolgist is in [place], and her [...] Zuluaga MD DME: Camacho Titration done @ [facility] 03/08/2012 recommended CPAP @ 11 cm [...] assistance Toileting Minimal assistance Feeding Minimal assistance Tape Control Skin Or Spar Mill Operator Independent Med Delivery yes Wound Care Documentation [...] Score: @READMISSIONRISKDETAILS@ Discharging to Facility/ Agency Name: [facility] Address: [address] [facility] Fax: Dialysis Facility (if applicable) Name: Address: Dialysis Schedule: Phone: Fax: Resistance Machine Welder Setter/Electronic Installer signature: ICIAN SECTION Prognosis: good Condition at [...] Milian. Patient was admitted on 12/18/22 to [facility] with CP history of CHF, CAD, DM [...] through Care Everywhere. * Heart Healthy Diet ([place]izen [place]) documented in this [facility]09-08-2023 Note* Care Coordination - Good Jang - 01/09/2023 8:15 AM EDT Referral placed to [facility] via [facility] per TCC request. Referral placed to [facility] via fax # [phone] to Shauna in Admissions Await review and response regarding ability to accept. TCC notified. [facility]hrcni58-07-0626 Note* Care Coordination - Good Jang - 01/08/2023 3:06 PM EDT Referral placed to [facility] via [facility] per TCC request. Await review and response regarding ability to accept. TCC notified. [facility] [id number] Note* Care Coordination - Delores Mullins RN - 01/08/2023 2:36 PM EDT Spoke with patient at bedside, alyssa Bhupinder over the phone to discuss therapy recommendations. Agreeable to [facility] and [address] [place] [address]. [facility] CenterWnrgao85-76-5876 Note* Care Coordination - Delores Mullins RN - 01/07/2023 2:18 PM EDT Images from the original note were not included. Care Management Progress Note Patient remains on HLU s/p CABG x 3 POD # 6. PT continuing to recommend IPR vs SNF. [facility] unable to accept patient, FOC, patient and niece declining SNF, discharge plan is home with [facility]. TCC to follow for updated [...] RN 01/02/2023 2:07 PM 01/06/2023 Shruthi Weaver, FIELD SUPERINTENDENT - TANK CLEANING SUPERVISOR 01/01/2023 11:16 AM 01/06/2023 Azam Rose MD 01/01/2023 5:45 AM Length of Stay (Days): 6 GMLOS: 5.9 [facility] CenterWuodfl65-44-4247 NoteReceived referral and reviewed chart. Phase II Cardiac Rehab Referral discussed with Lacy Alvarado. Patient prefers cardiac rehab at [facility]. Given information on cardiac rehab at preferred location. [facility]09-05-2023 Note* Care Coordination - Delores Mullins RN - 01/06/2023 1:01 PM EDT [facility] unable to accept patient, too functional. Updated patient at bedside and niece Bhupinder (HCPOA) over the phone. Declined SNF at this time, would like to plan discharge home with HHC including PT/OT/SN/GREASE BUFFER if possible. Will updated [facility], CTS LEAD SIMULATION MODELING ENGINEER aware. [facility] [id number] Consult note* Faiza Thomas - 01/06/2023 11:33 AM EDTAssociated Order(s): IP CONSULT TO CARDIAC REHAB Received referral and reviewed chart. Phase II Cardiac Rehab Referral discussed with Lacy Alvarado. Patient prefers cardiac rehab at [facility]. Given information on cardiac rehab at preferred location. [facility] [id number] Consult note* Faiza Thomas - 01/06/2023 11:33 AM EDTAssociated Order(s): IP CONSULT TO CARDIAC REHAB Received referral and reviewed chart. Phase II Cardiac Rehab Referral discussed with Lacy Alvarado. [facility] Given information on cardiac rehab at preferred [...] heart healthy diet handout at bedside with [facility] RD phone number. 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 Pt underwent CABG x 4 01/01. Extubated with diet ordered. Pt is sleeping in chair at time of RD visit-did not disturb. Provided heart healthy diet handout with [facility] RD phone number for reference at bedside. Estimated Daily Nutrient Needs: Energy Requirements Based On: Kcal/kg Weight Used for Energy Requirements: Hunter (25-30 kcal/kg) Weight for Energy Calculation (kg): 50 kg Total Energy Requirements (kcals/day): 4117-5154 Weight Used for Protein Requirements: Hunter (1.2-1.5 g/kg) Weight in Kg Used for [...] 78.8 kg (173 lb 11.6 oz) (01/02 [facility]) Admission Body Weight: 78 kg (172 lb) (no method) [place] Body Weight (lbs) (Calculated): 110 lbs [place] Body Weight (Kg) (Calculated): 50 kg % [place] Body Weight (Calculated): 157.9 % BMI (kg/m2) [...] to determine Talita Haque RD, LD Contact: *[phone] or via [employer] chat * Kaye Sanchez APRN - [facility] - 01/01/2023 11:40 AM EDTAssociated Order(s): IP CONSULT TO ENDOCRINOLOGY Department of Internal Medicine Division of Endocrinology, Diabetes, & Metabolism Endocrinology Note Patient Name: Lacy Alvarado : 1950 AGE: 72 y.o. Room/Bed: [facility] A Admission Date: 01/01/2023 Visit Date: 01/01/2023 Reason for Endocrine Consult: post op heart Provider/Team Requesting Consult: cts PCP: MAYDA GARCIA Outpt Bridge/Structure Inspection Team Leader: No ASSESSMENT: Cad s/p Cabgx4 Dm2 with hyperglycemia without termite control technician insulin Stress hyperglycemia Chf Hld/htn PLAN: Continue [...] found for: CHOLHDLRATIO No results found for: [id number] No results found for: TSH, C2CYFGO, T9SLFEO, THYROIDAB Radiology reportsas per the Radiologist Radiology: ECG 12 lead Result Date: 01/01/2023 Sinus rhythm History/Other: Past Medical History: Past Medical History: Diagnosis Date CHF (congestive heart failure) ([facility]/HCC) (HCC) Diabetes mellitus (HCC) GERD (gastroesophageal reflux disease) Hyperlipidemia Hypertension RA (rheumatoid arthritis) ([facility]) Seizure ([facility]) last seizure 5 months ago nathaniel murray 08/24 Seizures ([facility]) Sleep apnea Past Surgical History: Past Surgical [...] in note. * Mynor Villareal, GORDO - TANK CLEANING SUPERVISOR - 01/01/2023 8:58 AM EDT Images from the original note were not included. [facility]: Critical Care Consultation Note Date: 01/01/23 PATIENT NAME: Lacy Alvarado : 1950 (72 y.o.) Reason for Consult: Critical Care & Vent Management HPI: Lacy Alvarado is a 72 y.o. female was referred to us by Dr. Bhanu Milian. Patient was admitted on12/18/22 to [facility] with CP history of CHF, CAD, DM [...] history of CHF (congestive heart failure) (CMS/HCC) ([facility]), Diabetes mellitus (HCC), GERD (gastroesophageal [...] PM EDT I have personally performed a dxan-ro-fugn diagnostic evaluation on this patient on date of katnlde94/31/23 . History, labs, imaging studies, and electronic medical record have been reviewed by me. This notedocumented by the []mix house tender [x]SONYA reflects my history, exam, and medical [...] CTs No Pacer wires documented in this [facility]09-05-2023 NoteCare Management Progress Note Patient remains [...] RN 01/02/2023 2:07 PM 01/06/2023 Shruthi Weaver, FIELD SUPERINTENDENT - TANK CLEANING SUPERVISOR 01/01/2023 11:16 AM 01/06/2023 Azam Rose MD 01/01/2023 5:45 AM Length of Stay (Days): 5 GMLOS: 5.9 [facility] [id number] Note* Care Coordination - Delores Mullins RN [...] RN 01/02/2023 2:07 PM 01/06/2023 Shruthi Weaver, FIELD SUPERINTENDENT - TANK CLEANING SUPERVISOR 01/01/2023 11:16 AM 01/06/2023 Azam Rose MD 01/01/2023 5:45 AM Length of Stay (Days): 5 GMLOS: 5.9 [id number] NoteCardiothoracic Surgery/CCM Progress Note PATIENT NAME: Lacy Alvarado DATE: 01/04/23 HPI: Lacy Alvarado is a 72 y.o. female was referred to us by Dr. Bhanu Milian. Patient was admitted on 12/18/22 to [facility] with CP history of CHF, CAD, DM [...] Recent Labs 01/01/23 1010 01/02/23 0002 01/03/23 001 INR 1.3* 1.1 1.1 Physical Exam Vitals [...] Nomal (SIS 01/01/23) Blood Conservation: Transfused post-op. Radar Air Traffic Controller: [place] [facility]09-02-2023 NoteCardiothoracic Surgery/CCM Progress Note PATIENT NAME: Lacy Alvarado DATE: 01/03/23 HPI: Lacy Alvarado is a 72 y.o. female was referred to us by Dr. Bhanu Milian. Patient was admitted on 12/18/22 to [facility] with CP history of CHF, CAD, DM [...] Nomal (SIS 01/01/23) Blood Conservation: Transfused post-op. Radar Air Traffic Controller: [facility]09-02-2023 Plan of care note* Care Plan - [...] Interventions Goal: Assess Nutritional Intake Outcome: Progressing [id number] Note* Home Care - Lisa Yo RN - 01/02/2023 3:39 PM EDT Bridge Crane Operator following case for Discharge Needs. [facility] [id number] NoteNutrition Assessment Type and Reason for Visit: [...] heart healthy diet handout at bedside with [facility] RD phone number. 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 Pt underwent CABG x 4 01/01. Extubated with diet ordered. Pt is sleeping in chair at time of RD visit-did not disturb. Provided heart healthy diet handout with [facility] RD phone number for reference at bedside. Estimated Daily Nutrient Needs: Energy Requirements Based On: Kcal/kg Weight Used for Energy Requirements: Hunter (25-30 kcal/kg) Weight for Energy Calculation (kg): 50 kg Total Energy Requirements (kcals/day): 2250-1332 Weight Used for Protein Requirements: Hunter (1.2-1.5 g/kg) Weight in Kg Used for [...] Weight: 78 kg (172 lb) (no method) Hunter Body Weight (lbs) (Calculated): 110 lbs Hunter Body Weight (Kg) (Calculated): 50 kg % Hunter Body Weight (Calculated): 157.9 % BMI (kg/m2) [...] to determine Talita Haque RD, LD Contact: *[phone] or via [employer] [id number] Note* Care Coordination - Delores Mullins RN - 01/02/2023 2:07 PM EDT Care Managment Initial Assessment Date: 01/02/2023 Patient Name: Lacy Alvarado : 1950 Patient Information Source of Information: Patient Cognition/Language: WFL - Within Functional Limits Permission given to speak with patient c s s representative/caregiver as indicated: Yes Confirmation of Payer [...] Living Prescription Coverage: Yes Pharmacy Used: [facility] Medication Management: Independent Transportation/Shopping: Assistance Provider [...] have a ride home and will task [facility] follow for home care needs. Delores Mullins RN [facility] [id number] Consult note* Talita Haque, RUBEN - 01/02/2023 12:30 PM EDTAssociated Order(s): IP [...] heart healthy diet handout at bedside with [facility] RD phone number. 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 Pt underwent CABG x 4 01/01. Extubated with diet ordered. Pt is sleeping in chair at time of RD visit-did not disturb. Provided heart healthy diet handout with [facility] RD phone number for reference at bedside. Estimated Daily Nutrient Needs: Energy Requirements Based On: Kcal/kg Weight Used for Energy Requirements: Hunter (25-30 kcal/kg) Weight for Energy Calculation (kg): 50 kg Total Energy Requirements (kcals/day): 2620-6750 Weight Used for Protein Requirements: Hunter (1.2-1.5 g/kg) Weight in Kg Used for [...] 01/02/23 0509 01/02/23 0602 01/02/23 0705 01/02/23 09 POCGLU 136* 145* 120* 132* 132* 121* [...] Weight: 78 kg (172 lb) (no method) Hunter Body Weight (lbs) (Calculated): 110 lbs Hunter Body Weight (Kg) (Calculated): 50 kg % Hunter Body Weight (Calculated): 157.9 % BMI (kg/m2) [...] to determine Talita Haque RD, LD Contact: *[phone] or via [employer] chat [facility]08-31-2023 NotePatient: Lacy Alvarado Procedure Summary Date: 01/01/23 Room / Location: [address] Operating Room Anesthesia Start: 657 Anesthesia Stop: 9 Procedures: CABG AND SIS (Chest) Echocardiography transesophageal real-time Diagnosis: 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 (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 [I25.10]) Surgeons: [...] discharged once all PACU criteria has been met.[facility] [id number] NotePatient: Lacy Alvarado Procedure Summary Date: 01/01/23 Room / Location: [place] [address] [facility] Operating Room Anesthesia Start: 06 Anesthesia Stop: 112 Procedures: CABG AND SIS (Chest) Echocardiography transesophageal real-time Diagnosis: 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 Staffing Performed: PUMPER GAUGER APPRENTICE Anesthesiologist: Cruzito Frost MD Resident/PUMPER GAUGER APPRENTICE: Azar Rojo APRN - BOB Performed by: Azar Rojo APRN - PUMPER GAUGER APPRENTICE Authorized by: zAar Rojo APRN - [facility]08-31-2023 Consult note* Kaye Sanchez APRN - TANK CLEANING SUPERVISOR - 01/01/2023 11:40 AM EDTAssociated Order(s): IP CONSULT TO ENDOCRINOLOGY Department of Internal Medicine Division of Endocrinology, Diabetes, & Metabolism Endocrinology Note Patient Name: Lacy Alvarado : 1950 AGE: 72 y.o. Room/Bed: T1-103/T1-103 A Admission Date: 01/01/2023 Visit Date: 01/01/2023 Reason for Endocrine Consult: post op heart Provider/Team Requesting Consult: cts PCP: MAYDA GARCIA Outpt Bridge/Structure Inspection Team Leader: No ASSESSMENT: Cad s/p Cabgx4 Dm2 with hyperglycemia without termite control technician insulin Stress hyperglycemia Chf Hld/htn PLAN: Continue [...] found for: CHOLHDLRATIO No results found for: BXCQ19PBG No results found for: TSH, D6CIYSA, D4ZJJDQ, THYROIDAB Radiology reportsas per the Radiologist Radiology: [...] coordination of care as documented in note. [employer] Phone: 1([phone]) 153-493608-31-2023 NoteAirway Date/Time: 01/01/2023 7:08 AM Urgency: scheduled Airway not difficult General Information and Staff Patient location during procedure: Procedural Anesthesiologist: Cruzito Frost MD Resident/PUMPER GAUGER APPRENTICE: GORDO Kenney CRNA Performed: PUMPER GAUGER APPRENTICE Performed by: GORDO Kenney CRNA Authorized by: [...] attempts: BVM Number of other approaches attempted: [address] [place], [place] 5675808-31-2023 Note Central Venous Line: Date/Time: 01/01/2023 7:26 [...] anesthesiologist Anesthesiologist: Cruzito Frost MD Performed by: Azar Rojo APRN - [facility] Authorized by: Azar Rojo APRN - [facility]08-31-2023 Consult note* Mynor Villareal APRN - [facility] - 01/01/2023 8:58 AM EDT Images from the original note were not included. [facility]: Critical Care Consultation Note Date: 01/01/23 PATIENT NAME: Lacy Alvarado : 1950 (72 y.o.) Reason for Consult: Critical Care & Vent Management HPI: Lacy Alvarado is a 72 y.o. female was referred to us by Dr. Bhanu Milian. Patient was admitted on12/18/22 to [facility] with CP history of CHF, CAD, DM [...] history of CHF (congestive heart failure) (CMS/HCC) ([facility]), Diabetes mellitus (HCC), GERD (gastroesophageal reflux disease), Hyperlipidemia, Hypertension, RA (rheumatoid arthritis) ([facility]), Seizure ([facility]), Seizures ([facility]), and Sleep apnea. Past Surgical History: has [...] PM EDT I have personally performed a kluj-wa-upvk diagnostic evaluation on this patient on date of bgoznma26/31/23 . History, labs, imaging studies, and electronic medical record have been reviewed by me. This notedocumented by the []mix house tender [x]SONYA reflects my history, exam, and medical [...] air leak in CTs No Pacer wires [employer] Phone: [phone]) 126-370308-31-2023 Note* Op Note - Azam Rose MD [...] intraoperative transesophageal echocardiography Surgeon: Azam Rose MD Clinical Leader(s): [] Thomas Silva [x] Raymundo Marie [x] [...] y.o. female who was referred by Dr. Bhnau Milian. Patient was admitted on 12/18/22 to [facility] with CP. She had a history of [...] with closure. The sternum was reapproximated with ddwdpm-la-rhxcb wires and the overlying tissues were closed in multiple layers. The patient was transported to the intensive care unit in serious but stable condition. [facility] [id number] NotePatient: Lacy Alvarado Procedure Information Date/Time: 01/01/23729 Procedures: CABG AND SIS (Chest) Echocardiography transesophageal real-time Location: [address] Operating Room Surgeons: Azam Rose MD Past Medical History: Past Medical History: No date: CHF (congestive heart failure) (CMS/HCC) ([facility]) No date: Diabetes mellitus (HCC) No date: GERD (gastroesophageal reflux disease) No date: Hyperlipidemia No date: Hypertension No date: RA (rheumatoid arthritis) ([facility]) No date: Seizure ([facility]) Comment: last seizure 5 months ago gand mal 08/24 No date: Seizures ([facility]) No date: Sleep apnea Past [...] results found for this or any previous visit.[facility] 12-29-2022 NoteComprehensive Pre Surgical History and Physical ? Name: Lacy Alvarado : 1950 (Age-72 y.o.) Date of Service: Pt seen/examined on 12/29/2022 Procedure Information Date/Time: 01/01/23729 Procedures: CABG AND SIS (Chest) Echocardiography transesophageal real-time Location: [facility] Operating Room Surgeons: Azam Rose MD [...] cardiopulmonary testing. 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 CABG AND SIS (Chest) [88432 CPT(R)] Echocardiography transesophageal real-time [47173 CPT(R)] Anesthesia type: General Reason for Visit: [...] Milian. Patient was admitted on 12/18/22 to [facility] with CP. Per notes, patient has a [...] office note 12/23/2022 ? Denies history of VT, TIA, CVA Past Medical History: Past Medical History: No date: CHF (congestive heart failure) ([facility]/HCC) ([facility]) No date: Diabetes mellitus ([facility]) No date: GERD (gastroesophageal reflux disease) No date: Hyperlipidemia No date: Hypertension No date: RA (rheumatoid arthritis) ([facility]) No date: Seizure ([facility]) Comment: last seizure 5 months ago nathaniel mal 08/24 No date: Seizures ([facility]) No date: Sleep apnea Past [...] tablet Take 75 mg (more content not included)...[facility]08-28-2023 NoteComprehensive Pre Surgical History and Physical ? Name: Lacy Alvarado : 1950 (Age-72 y.o.) Date of Service: Pt seen/examined on 12/29/2022 Procedure Information Date/Time: 01/01/23729 Procedures: CABG AND SIS (Chest) Echocardiography transesophageal real-time Location: [facility] Operating Room Surgeons: Azam Rose MD [...] cardiopulmonary testing. 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 CABG AND SIS (Chest) [58291 CPT(R)] Echocardiography transesophageal real-time [54466 CPT(R)] Anesthesia type: General Reason for Visit: [...] Milian. Patient was admitted on 12/18/22 to [facility] with CP. Per notes, patient has a [...] office note 12/23/2022 ? Denies history of VT, TIA, CVA Past Medical History: Past Medical History: No date: CHF (congestive heart failure) (CMS/HCC) ([facility]) No date: Diabetes mellitus (HCC) No date: GERD (gastroesophageal reflux disease) No date: Hyperlipidemia No date: Hypertension No date: RA (rheumatoid arthritis) ([facility]) No date: Seizure (HCC) Comment: last seizure [...] tablet Take 75 mg (more content not included)...[facility] [id number] History and physical note* GORDO Larkin CNP - 12/29/2022 2:00 PM EDT Images from the original note were not included. Comprehensive Pre Surgical History and Physical ? Name: Lacy Alvarado : 1950 (Age-72 y.o.) Date of Service: Pt seen/examined on 12/29/2022 Procedure Information Date/Time: 01/01/23 1254 Procedures: CABG AND SIS (Chest) Echocardiography transesophageal real-time Location: [facility] Operating Room Surgeons: Azam Rose MD [...] cardiopulmonary testing. 1) 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 [I25.10] Pre-op diagnosis: 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 [I25.10] - [...] who we are asked to see/evaluate by [place] [address] for pre-operative evaluation prior to. CABG AND SIS (Chest) [35867 CPT(R)] Echocardiography transesophageal real-time [57176 CPT(R)] Anesthesia type: General Reason for Visit: [...] Milian. Patient was admitted on 12/18/22 to [facility] with CP. Per notes, patient has a [...] office note 12/23/2022 ? Denies history of VT, TIA, CVA Past Medical History: Past Medical History: No date: CHF (congestive heart failure) ([facility]/HCC) ([facility]) No date: Diabetes mellitus ([facility]) No date: GERD (gastroesophageal reflux disease) No date: Hyperlipidemia No date: Hypertension No date: RA (rheumatoid arthritis) ([facility]) No date: Seizure ([facility]) Comment: last seizure 5 months ago nathaniel trevor 08/24 No date: Seizures ([facility]) No date: Sleep apnea Past [...] swallow. 12/24/22 12/24/22 Kassy Tabares APRN - TANK CLEANING SUPERVISOR clopidogrel (Plavix) 75 MG tablet Take [...] Larkin CNP Date: 12/29/2022 at 2:58 PM [employer] Work Phone: 1(626) 469-453208-28-2023 History and physical note* GORDO Larkin CNP - 12/29/2022 2:00 PM EDT Images from the original note were not included. Comprehensive Pre Surgical History and Physical ? Name: Lacy Alvarado : 1950 (Age-72 y.o.) Date of Service: Pt seen/examined on 12/29/2022 Procedure Information Date/Time: 01/01/23 0730 Procedures: CABG AND SIS (Chest) Echocardiography transesophageal real-time Location: [facility] Operating Room Surgeons: Azam Rose MD [...] cardiopulmonary testing. 1) 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 [I25.10] Pre-op diagnosis: 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 [I25.10] - [...] who we are asked to see/evaluate by [place] [address] for pre-operative evaluation prior to. CABG AND SIS (Chest) [26425 CPT(R)] Echocardiography transesophageal real-time [42107 CPT(R)] Anesthesia type: General Reason for Visit: [...] Milian. Patient was admitted on 12/18/22 to [facility] with CP. Per notes, patient has a [...] office note 12/23/2022 ? Denies history of VT, TIA, CVA Past Medical History: Past Medical History: No date: CHF (congestive heart failure) ([facility]/HCC) ([facility]) No date: Diabetes mellitus ([facility]) No date: GERD (gastroesophageal reflux disease) No date: Hyperlipidemia No date: Hypertension No date: RA (rheumatoid arthritis) ([facility]) No date: Seizure ([facility]) Comment: last seizure 5 months ago nathaniel murray 08/24 No date: Seizures ([facility]) No date: Sleep apnea Past [...] Take 50 mg by mouth. 11/28/21 Historical ProviderMD CHRONIC NARCOTIC USE: No Allergies: Prednisone If [...] Electronically signed by: Yolande Serra APRN - [facility] Date: 12/29/2022 at 2:58 PM documented in this [facility]08-23-2023 Telephone encounter Note* Telephone Encounter - GORDO Felix CNP - 12/24/2022 11:44 AM EDT Surg proc orders placed, medications e-scribed - talked to patient, answered all questions. [facility] [id number] Miscellaneous Notes* Telephone Encounter - GORDO Felix [...] mouth rinse [] Other: documented in this [facility]08-22-2023 NotePrep for Procedure Order Request: 12/23/22 Surgeon: Dr. Rose Surgery/Procedure: CABG & SIS Plan Admit: Yes PAT Appointment: 12/26/22 at 1:00 PM Date if yes: Date of Surgery/Procedure: 01/01/23 at 7:30 AM Medication needed held: [] None [] Other: Medication needed prescribed: [] None [x] Nasal ointment and mouth rinse [] Other: [facility]08-22-2023 Telephone encounter Note* Telephone Encounter - Katarzyna [...] Nasal ointment and mouth rinse [] Other: [facility] [id number] History of Present illness Narrative* Azam Rose MD - 12/23/2022 10:30 AM EDT Images from the original note were not included. [facility]ARDIOV[facility]ORACIC SURGERY [address] [facility] [address] Dept: [phone] Dept Loc: [phone] Visit type: New Reason for Visit: Multivessel [...] Milian. Patient was admitted on 12/18/22 to [facility] with CP. Per notes, patient has a [...] This note may have been dictated using [employer] Medical Practice Edition 2.6 and/or [employer] Voice Recognition Feature. The document was proofread, however unrecognized voice recognition wreath and garland maker hand errors may be present. documented in this [facility]08-22-2023 History of Present illness Narrative* Azam Rose MD - 12/23/2022 10:30 AM EDT Images from the original note were not included. [facility]ARDIOV[facility]ORACIC SURGERY [address] [facility] [facility] [facility] [address] Dept: [phone] Dept Loc: [phone] Visit type: New Reason for Visit: Multivessel [...] Milian. Patient was admitted on 12/18/22 to [facility] with CP. Per notes, patient has a [...] This note may have been dictated using [employer] Practice Edition 2.6 and/or [employer] Voice Recognition Feature. The document was proofread, however unrecognized voice recognition wreath and garland maker hand errors may be present. documented in this [facility]08-18-2023 Discharge summary Author Edwin Kaplan [facility] December 19, 2022 3:41pm Note Date/Time December 19, 2022 3: 38pm [facility] Medical Records Department [address] [place] [address] Instructions for Home/Discharge Instructions 12/19/22 1537 MR#: [id number] Acct: [id number] Name: LACY ALVARADO Rep #:[id number] : 1950 72 From: Edwin Mo [...] Follow-up with the cardiothoracic surgery team at [facility] as discussed. Discharge Orders/Prescriptions Prescriptions: New isosorbide [...] Prolia 60 mg/mL syringe 60 mg subcut [id number] Qty: 1 2RF Discontinued isosorbide mononitrate 30 [...] MD; Dr. Bhanu Milian MD ~ Signed [facility] Work Phone: 1(128) 363-284108-18-2023 Procedure [facility] 12-19-2022 Consult note Author Bhanu Milian [facility] December 19, 2022 4:13pm Note Date/Time December 19, 2022 8: 32am [facility] Medical Records Department [address] [place] [address] Consultation - Cardiology 12/19/22829 MR#: [id number] Acct: [id number] Name: LACY ALVARADO Rep #:[id number] : 1950 72 From: Karen LÓPEZ PCP: Dr. Mayda Garcia MD Status:A DM DELFIN Location: [place] [address] <Statement entered by Bhanu Milian MD - [...] was referred to Dr. Rose at [facility]. She will follow-up with them on [...] is a 72 F who presented to [facility] ER on 12/18/22 with Chest pain, [...] and stenting to her mid LAD in 2017. Heart catheterization in 2019 demonstrated disease in her distal LAD of 60%, circumflex 50% stenosis, RCA 60% stenosis. 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 Bhanu Milian MD~ Signed [facility] Work Phone: 1(880) 347-397908-17-2023 History and physical note Author [facility] December 18, 2022 4:38pm Note Date/Time December 18, 2022 4: 36pm [facility] Medical Records Department [address] [place] [address] H&P Exam - Hospitalist 12/18/22 1627 MR#: [id number] Acct: [id number] Name: LACY ALVARADO Rep #:[id number] : 1950 72 From: Edwin Mo hugh PCP: Dr. Mayda Garcia MD Status:A DM DELFIN [facility] [facility] NI[facility]- 1 HPI - General General Date of Admission: 12/18/22 Date of Service: 12/18/22 Chief Complaint: Chest pain HPI Narrative Lacy Alvarado is a 72-year-old female with history significant for CAD s/p stenting on Plavix (follows w/ Dr. Johnson), hypertension, seizures, cfm-fndmlae-wrrfxaoeq type 2 diabetes and GERD who presented to the [facility] ED on 12/18 with chest pain. Patient [...] to view this. Chest x-ray was nonacute. [facility] Medical History Abdominal pain Acute back pain Anemia Arthritis 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 Cardiology follow-up [...] mg/mL subcutaneous syringe (Prolia) 60 mg subcut [id number] #1 mL 12/11/22 [Rx Last Taken Unknown] [...] 43.9 L, Lymph % (Auto) 45.0 H, Rogers % (Auto) 8.1, Eos % (Auto) 2.4, [...] Plavix (follows w/ Dr. Johnson), hypertension, seizures, tqz-mldjskl-vinmmuyul type 2 diabetes and GERD who presented to the [facility] ED on 12/18 with chest pain. 1. [...] Seizure disorder ? Continue home divalproex. 4. Kjc-ppjzdcm-crywdpkap type 2 diabetes ? Home medication of Sitagliptin. Will monitor blood sugars here, can add on sliding scale insulin as needed. DVT prophylaxis: Heparin drip CODE STATUS: Full code, verified Expected disposition: Home, tomorrow Total clinical time spent by myself addressing the patient's medical issues, reviewing all the data, and collaborating with patient's care team: 55 minutes. Charges/Coding Visit Charges Inpatient E&M: 27259 Init Hosp L2 12/18/22 1638 <Electronically signed by Edwin Kaplan DO> Cosigner Signature (if applicable): CC: Dr. Edwin Kaplan DO; Dr. Mayda Garcia MD~ Signed [facility] Work Phone: 1(434) 707-300508-17-2023 Discharge summary Author Jossue Boyd [facility] December 18, 2022 8:57am Note Date/Time December 18, 2022 5: 38am [facility] Medical Records Department [address] [place] [address] Emergency Department Summary 12/18/22 MR#: [id number] Acct: [id number] Name: LACY ALVARADO Rep #:[id number] 2 : 1950 72 From: Turner Armendariz [...] surgery. No history of PE or DVT. [facility] Medical History (Updated 12/18/22 @ 06:[address] Turner Armendariz DO) Abdominal pain Acute back pain Anemia Arthritis 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 Cardiology follow-up [...] mg/mL subcutaneous syringe (Prolia) 60 mg subcut [id number] #1 mL 12/11/22 [Rx Last Taken Unknown] [...] coronary artery disease. Patient placed on a cardiac/vascular sonographer. EKG obtained on arrival shows sinus rhythm [...] 43.9 L Lymph % (Auto) 45.0 H Rogers % (Auto) 8.1 Eos % (Auto) 2.4 [...] Prolia 60 mg/mL syringe 60 mg subcut [id number] Qty: 1 2RF Primary Care Provider: Mayda Garcia Referrals: Mayda Garcia MD [Primary Care Provider] - What to do if you have Problems For any increased pain, shortness of breath, bleeding, nausea or vomiting, chestpain, or any unexpected problems, contact your Primary Care Provider. Call [facility] ([phone]) or report to the closest Emergency Room. [...] cc: Dr. Mayda Garcia MD ~* Signed [facility] Work Phone: [phone]) 167-150108-17-2023 Discharge summary Author Jossue Boyd [facility] December 18, 2022 8:57am Note Date/Time December 18, 2022 5: 38am [facility] Medical Records Department [address] [place] [address] Emergency Department Summary 12/18/22 MR#: [id number] Acct: [id number] Name: LACY ALVARADO Rep #:[id number] 2 : 1950 72 From: Turner Armendariz [...] surgery. No history of PE or DVT. [facility] Medical History (Updated 12/18/22 @ 06:[address] Turner Armendariz DO) Abdominal pain Acute back pain Anemia Arthritis 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 Cardiology follow-up [...] mg/mL subcutaneous syringe (Prolia) 60 mg subcut [id number] #1 mL 12/11/22 [Rx Last Taken Unknown] [...] coronary artery disease. Patient placed on a cardiac/vascular sonographer. EKG obtained on arrival shows sinus rhythm [...] 43.9 L Lymph % (Auto) 45.0 H Rogers % (Auto) 8.1 Eos % (Auto) 2.4 [...] Prolia 60 mg/mL syringe 60 mg subcut [id number] Qty: 1 2RF Primary Care Provider: Mayda Garcia Referrals: Mayda Garcia MD [Primary Care Provider] - What to do if you have Problems For any increased pain, shortness of breath, bleeding, nausea or vomiting, chestpain, or any unexpected problems, contact your Primary Care Provider. Call [facility] ([phone]) or report to the closest Emergency Room. [...] cc: Dr. Mayda Garcia MD ~* Signed [facility] Work Phone: [phone] 316-348904-13-[address] Freeman [facility] August 14, 2022 1:07am Note Date/Time August 13, 2022 10: 30pm [facility] Medical Records Department [address] [place] [address] Emergency Department Summary 08/13/22 MR#: [id number] Acct: [id number] Name: LACY ALVARADO Rep #:[id number] : 1950 71 From: Tin Freeman [...] in the past. 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 She complains of headache, and states that she does not usually have a headacheafter seizure. No fever, chills. [facility] Medical History Abdominal pain Acute back pain Anemia Arthritis 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 Cardiology follow-up [...] mg/mL subcutaneous syringe (Prolia) 60 mg subcut [id number] #1 mL 05/20/22 [Rx Last Taken Unknown] [...] 45.6 L Lymph % (Auto) 44.1 H Rogers % (Auto) 7.4 Eos % (Auto) 2.1 [...] Prolia 60 mg/mL syringe 60 mg subcut [id number] Qty: 1 0RF atorvastatin 80 mg tablet [...] your Primary Care Provider. Call [facility] ([phone]) or report to the closest Emergency Room. Call 911 if necessary. 08/14/22 0107 <Electronically signed by Tin Freeman DO> Cosigner Signature (if applicable): CC: Dr. Mayda Garcia MD ~ Signed [facility] Work Phone: 1(341) 807-832602-04-[address] Patel [facility] June 07, 2022 6:15pm Note Date/Time June 07, 2022 6 :12pm [facility] Medical Records Department [address] [place] [address] Emergency Department Summary 06/07/22 MR#: [id number] Acct: [id number] Name: LACY ALVARADO Rep #:[id number] 2 : 1950 71 From: Ezekiel Patel [...] Tetanus Immunization: 5-10 years Recent Illness/Hospitalization: Yes [facility] Medical History Abdominal pain Acute back pain Anemia Arthritis 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 Cardiology follow-up [...] mg/mL subcutaneous syringe (Prolia) 60 mg subcut [id number] #1 mL 05/20/22 [Rx Last Taken Unknown] [...] Triage Chief Complaint: Chest Other ED Provider: PatelEzekiel Dx/Rx/DC Orders Clinical Impression: Contusion of back [...] Prolia 60 mg/mL syringe 60 mg subcut [id number] Qty: 1 0RF Primary Care Provider: Mayda [...] your Primary Care Provider. Call [facility] ([phone]) or report to the closest Emergency Room. Call 911 if necessary. 06/07/221814 <Electronically signed by Ezekiel Patel MD> Cosigner Signature (if applicable): CC: Dr. Mayda Garcia MD ~ Signed [facility] Work Phone: 1(540) 953-502202-04-2023 Hospital Discharge instructions Additional Instructions Apply ice to your left chest wall and shoulder 6-10 times a day[facility] Work Phone: Discharge summary Author Edwin [facility] December 19, 2022 4:23pm Note Date/Time December 19, 2022 3: 41pm [facility] Medical Records Department [address] [place] [address] Discharge Summary 12/19/22 1541 MR#: [id number] Acct: [id number] Name: LACY ALVARADO Rep #:[id number] 6 : 1950 72 From: Edwin Mo hugh DO PCP: Dr. Mayda Garcia MD Status:A DM DELFIN Location: [place] [address] Providers Date of Admission: 12/18/22 Date of [...] mg/mL subcutaneous syringe (Prolia) 60 mg subcut [id number] #1 mL 12/11/22 pantoprazole 40 mg tablet,delayed [...] Plavix (follows w/ Dr. Johnson), hypertension, seizures, rbj-enqqzwk-slfdtrzpg type 2 diabetes and GERD who presented to the [facility] ED on 12/18 with chest pain. She [...] for an outpatient appointment with them in [place] early next week. She tolerated the catheterization well and was stable afterwards. A transthoracic echocardiogram was done post catheterization, read was pending on discharge. She was discharged home in stable condition. Discharge diagnoses: Chest pain, improved CAD s/p stenting Hypertension Seizures Aea-xywgumi-xvjkzalbf type 2 diabetes GERD PCP follow-up: Patient will be following up with cardiothoracic surgery in [facility] [place] [facility] discuss options for intervention on her [...] Follow-up with the cardiothoracic surgery team at [place] as discussed. Discharge Orders/Prescriptions Prescriptions: New isosorbide [...] Prolia 60 mg/mL syringe 60 mg subcut [id number] Qty: 1 2RF Discontinued isosorbide mononitrate 30 [...] Self Care Charges/Coding Visit Charges Inpatient E&M: 53609 Disch Hosp >30min 12/19/22 1623 <Electronically signed by Edwin Kaplan DO> Cosigner Signature (if applicable): CC: Dr. Edwin Kaplan DO; Dr. Mayda Garcia MD~ Signed [facility] Work Phone: Discharge summary Author Maurilio Bradford [facility] Note Date/Time November 14, 2024 4:[address] [facility] Medical Records Department [address] [place] [address] Discharge Summary 11/14/24 1618 MR#: [id number] Acct: [id number] Name: LACY ALVARADO Rep #:[id number] : 1950 73 From: Maurilio Bradford MD PCP: Dr. Mayda Garcia MD Status:A DM DELFIN Location: [place] [address] Providers Date of Admission: 11/13/24 Date of [...] is a 73-year-old female who presented to [facility] ED on 11/13/2024 with chest pain. 1. Chest pain ? Patient was placed on a monitored bed VT ruled out with serial cardiac enzymes. Patient [...] mg/mL subcutaneous syringe (Prolia) 60 mg subcut [id number] bone health #1 mL 01/19/24 gabapentin 300 [...] Neut % (Auto) 55.5, Lymph % (Auto) 35.9,Rogers % (Auto) 6.3, Eos % (Auto) 1.7, [...] 230 H, LDL Cholesterol, Calc 162, VLDL Sokwncegbck94, HDL Cholesterol 52, Cholesterol/HDL Ratio 4.47 Microbiology: Microbiology 11/13/24 22:25 Mucosa - Nose Respiratory Panel (PCR) - Final Radiography Diagnostic Testing: Radiology Impression Chest X-Ray 11/13/24 17:17 IMPRESSION: Mildly prominent interstitial markings could be the result of hypoventilatory change, pulmonary edema, or atypical infection. Reading Location: [id number] D/C Instructions DC O2, CPAP, BIPAP Needs [...] Prolia 60 mg/mL syringe 60 mg subcut [id number] Qty: 1 2RF Referrals / Follow Up: Mayda Garcia MD [Primary Care Provider] - Within 2 Weeks Disposition Disposition (needs filled in before D/C Order can be placed): Home, Self Care Charges/Coding Visit Charges Inpatient E&M: 58947 Disch Hosp >30min 11/14/24 1630 <Electronically signed by Maurilio Bradford MD> Cosigner Signature (if applicable): CC: Dr. Maurilio Bradford MD; Dr. Mayda Garcia MD~ Signed [facility] Work Phone: Evaluation note* Diagnosis Onset Date Resolution Status Osteoporosis acute Cerebrovascular disease administrative law judge shaun Epilepsy, unspecified, not i ntractable, without status epilepticus chronic Occipital neuralgia chronic Cerebrovascular disease administrative law judge shaun Epilepsy, unspecified, not i ntractable, without status epilepticus chronic Occipital neuralgia chronic [facility] Work Phone: Evaluation note* Diagnosis Onset Date Resolution Status Cerebrovascular disease administrative law judge shaun Epilepsy, unspecified, not i ntractable, without status epilepticus chronic Occipital neuralgia chronic BMI 32.0-32.9,adult acute LINA (obstructive sleep apnea) chronic Health care maintenance acut e Right shoulder pain acute Essential (primary) hypertension chronic Seizures chronic Type 2 diabetes mellitus chr onic [facility] Work Phone: Evaluation note* Diagnosis Onset Date Resolution Status Cerebrovascular disease administrative law judge shaun Epilepsy, unspecified, not i ntractable, without status epilepticus chronic Occipital neuralgia chronic BMI 32.0-32.9,adult acute LINA (obstructive sleep apnea) chronic Health care maintenance acut e Right shoulder pain acute Essential (primary) hypertension chronic Seizures chronic Type 2 diabetes mellitus chr onic Cough acute Chest pain acute Intractable pain acute Neck pain acute [facility] Work Phone: Evaluation note* Diagnosis Onset Date Resolution Status Cerebrovascular disease administrative law judge shaun Epilepsy, unspecified, not i ntractable, without [...] artery stent placement March 222017 chronic Hyperlipidemia [facility] Work Phone: Evaluation note* Diagnosis Onset [...] stent placement March 222017 chronic Hyperlipidemia chronic [facility] Work Phone: Evaluation note* Diagnosis Onset Date Resolution Status Cough acute Chest pain acute Intractable pain acute Neck pain acute Cervical radiculopathy acute Left shoulder pain acute Neck pain acute Left upper extremity numbness acute Essential (primary) hypertension chronic History of coronary artery stent placement March 222017 chronic Hyperlipidemia chronic Obesity acute LINA (obstructive sleep apnea) [facility] Work Phone: Evaluation note* Diagnosis Onset Date Resolution Status Obesity acute LINA (obstructive sleep apnea) chronic Seizures chronic Exposure to COVID-19 virus a cute [facility] Work Phone: Evaluation note* Diagnosis Onset Date Resolution Status Exposure to COVID-19 virus a cute Pain in left upper arm acute Essential (primary) hypertension chronic Seizures chronic Type 2 diabetes mellitus chr onic Osteoporosis acute [facility] Work Phone: evaluation note* Diagnosis Onset Date Resolution Status Pain in left upper arm acute Essential (primary) hypertension chronic Type 2 diabetes mellitus chr onic Osteoporosis acute Memory changes acute Epilepsy, unspecified, not i ntractable, without status epilepticus chronic Memory loss acute Epilepsy, unspecified, not i ntractable, without status epilepticus chronic Right hip pain acute Essential (primary) hypertension chronic Type 2 diabetes mellitus chr onic [facility] Work Phone: Evaluation note* Diagnosis Onset Date Resolution Status Memory changes acute Epilepsy, unspecified, not i ntractable, without status epilepticus chronic Memory loss acute Epilepsy, unspecified, not i ntractable, without status epilepticus chronic Right hip pain acute Essential (primary) hypertension chronic Type 2 diabetes mellitus chr onic Osteoarthritis of right knee noneactive [facility] Work Phone: Evaluation note* Diagnosis Onset Date [...] disease acute History of hypertension acut e [facility] Work Phone: Evaluation note* Diagnosis Onset Date [...] artery stent placement March 222017 chronic Hyperlipidemia [facility] Work Phone: Evaluation note* Diagnosis Onset [...] artery stent placement March 222017 chronic Hyperlipidemia [facility] Work Phone: Evaluation note* Diagnosis Coronary artery disease due to calcified coronary lesion- Primary 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 documented in this encounter [facility] [employer] [facility]* Diagnosis CAD in [place] artery- Primary Preoperative clearance Unspecified pre-operative examination 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 documented in this encounter [facility] [employer]* Diagnosis Preoperative clearance Unspecified pre-operative examination 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 documented in this encounter [facility] [employer]* Diagnosis Coronary artery disease due to calcified coronary lesion- Primary documented in this encounter [facility] [employer]* Diagnosis CAD in [place] artery- Primary CAD in [place] artery Coronary artery disease involving coronary bypass graft, unspecified whether angina present, unspecified whether [place] or transplanted heart S/P CABG (coronary artery bypass graft) Postsurgical aortocoronary bypass status documented in this encounter [employer] [employer]* Diagnosis Onset Date Resolution Status Memory [...] arthritis acute Stroke acute Hyperlipidemia chronic Hypertension [facility] Work Phone: Evaluation note* Diagnosis S/P CABG (coronary artery bypass graft)- Primary Postsurgical aortocoronary bypass status [facility] Diagnosis Onset Date Resolution Status [...] acute Essential (primary) hypertension chronic Hyperlipidemia chronic [facility] Work Phone: Evaluation note* Diagnosis Onset Date [...] bypass graft chronic Hyperlipidemia chronic Hypertension chronic [facility] Work Phone: Evaluation note* Diagnosis Onset Date [...] Fatigue acute Osteoarthritis of right knee noneactive [facility] Work Phone: Evaluation note* Diagnosis Onset Date [...] graft chronic Obesity chronic Obstructive sleep apnea administrative law judge shaun Chest wall tenderness chroni c Coronary artery disease administrative law judge shaun Essential (primary) hypertension chronic GERD (gastroesophageal reflux disease) chronic Osteoporosis chronic Rheumatoid arthritis chronic Type 2 diabetes mellitus chr onic [facility] Work Phone: Evaluation note* Diagnosis Onset Date Resolution Status Fatigue acute Fatigue acute Osteoarthritis of right knee noneactive History of coronary artery bypass graft chronic Obesity chronic Obstructive sleep apnea administrative law judge shaun Chest wall tenderness chroni c Coronary artery disease administrative law judge shaun Essential (primary) hypertension chronic GERD (gastroesophageal reflux disease) chronic Osteoporosis chronic Rheumatoid arthritis chronic Type 2 diabetes mellitus chr onic Fatigue acute Abdominal pain [facility] Work Phone: Evaluation note* Diagnosis Onset Date Resolution Status Fatigue acute Fatigue acute Osteoarthritis of right knee noneactive History of coronary artery bypass graft chronic Obesity chronic Obstructive sleep apnea administrative law judge shaun Chest wall tenderness chroni c Coronary artery disease administrative law judge shaun Essential (primary) hypertension chronic GERD (gastroesophageal reflux disease) chronic Osteoporosis chronic Rheumatoid arthritis chronic Type 2 diabetes mellitus chr onic Fatigue acute Abdominal pain chronic Abdominal pain [facility] Work Phone: Evaluation note* Diagnosis Onset Date Resolution Status Fatigue acute Osteoarthritis of right knee noneactive History of coronary artery bypass graft chronic Obesity chronic Obstructive sleep apnea administrative law judge shaun Chest wall tenderness chroni c Coronary artery disease administrative law judge shaun Essential (primary) hypertension chronic GERD (gastroesophageal reflux disease) chronic Osteoporosis chronic Rheumatoid arthritis chronic Type 2 diabetes mellitus chr onic Fatigue acute Abdominal pain chronic Abdominal pain [facility] Work Phone: Evaluation note* Diagnosis Onset Date Resolution Status Fatigue acute Osteoarthritis of right knee noneactive History of coronary artery bypass graft chronic Obesity chronic Obstructive sleep apnea administrative law judge shaun Chest wall tenderness chroni c Coronary artery disease administrative law judge shaun Essential (primary) hypertension chronic GERD (gastroesophageal reflux disease) chronic Osteoporosis chronic Rheumatoid arthritis chronic Type 2 diabetes mellitus chr onic Fatigue acute Abdominal pain chronic Abdominal pain chronic Osteoporosis [facility] Work Phone: History and physical note Author Edwin Mosteller [facility] Note Date/Time November 13, 2024 8:[address] [facility] Medical Records Department [address] [place] [address] H&P Exam - Hospitalist 11/13/242001 MR#: [id number] Acct: [id number] Name: LACY ALVARADO Rep #:[id number] : 1950 73 From: Edwin martin DO PCP: Dr. Mayda Garcia MD Status:R EG ER Location: ED HPI - General General Date of Service: 11/13/24 Chief Complaint: chest pain HPI Narrative LACY ALVARADO, is a 73 F who presented to [facility] ED on 11/13/2024 with chest pain. Medical history significant for CAD with stenting as2230 and CABG x 4 in December 2022, [...] feeling fine this morning and went to restorationist, but shortly after she got home and [...] currently. Will be admitted for further management. [facility] Medical History (Updated 11/13/24 @ 19:58 [...] FOOT HEEL SPUR 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 Rheumatoid arthritis [...] denosumab 60 mg/mL subcutaneous 60 mg subcut [id number] bone health 01/19/24 Unknown Rx syringe (Prolia) [...] (Reviewed 09/28/24 @ 12:57 by Vanita Venegas LEAD SIMULATION MODELING ENGINEER, LEAD SIMULATION MODELING ENGINEER-C) Grandmother Alcoholism Cancer Arthritis Mother Alcoholism Diabetes blood clots Hypertension Grandfather Heart disease Sister Thyroid disorder Other Breast cancer Cervical cancer Colon cancer Surgical History History of coronary artery bypass graft History of cardiac catheterization History of left heart catheterization (09/20/18) History of coronary artery stent placement (11/19/18) History of carpal tunnel surgery History of section H/O: hysterectomy Social History (Reviewed 09/28/24 @ 12:57 by Vanita Venegas LEAD SIMULATION MODELING ENGINEER, LEAD SIMULATION MODELING ENGINEER-C) household members: none housing: apartment Smoking Status: [...] Neut % (Auto) 55.5, Lymph % (Auto) 35.9,Rogers % (Auto) 6.3, Eos % (Auto) 1.7, [...] pulmonary edema, or atypical infection. Reading Location: [id number] Assessment & Plan Assessment/Plan (1) Chest pain: PLAN: Plan Patient is a 73-year-old female who presented to [facility] ED on 11/13/2024 with chest pain. 1. [...] 75 minutes. Charges/Coding Visit Charges Inpatient E&M: 16018 Init Hosp L3 11/13/242049 <Electronically signed by Edwin Kaplan DO> Cosigner Signature (if applicable): CC: Dr. Edwin Kaplan DO; Dr. Mayda Garcia MD~ Signed [facility] Work Phone: Hospital Discharge instructions Additional Instructions Discharge home 01/26/2023, pending appeal, [facility] PT/OT/SN, Front wheeled walker, bedside commode.[facility] Work Phone: Hospital Discharge instructions Additional Instructions EKG normal cardiac workup negative. Chest CT discussed with radiologist no concern for fracture. Follow-up with your doctor. Take medications as prescribed.[facility] Work Phone: Hospital Discharge instructions Additional Instructions Ice to your chest wall to decrease pain and bruising. The doctors saw you yesterday wrote for a narcotic pain medication which she can oyster picker from the pharmacy and use. Pain. Follow-up with your doctor if not improving.[facility] Work Phone: Progress note Author Shruthi Costa [facility] Note Date/Time January 26, 2025 12:46pm [facility] [address] [place] [address] OFFICE VISIT Date of Service: 01/26/25 MR#: [id number] Acct: [id number] Name: LACY ALVARADO Rep #: [id number] : 1950 Provider: SYDNEY Costa Age/Sex: 74/F Location: [facility] Status: Signed Intake Vital Signs 01/19/25 14:33 [...] 1 wk fu Chief Complaint: abdominal pain Systems Project Manager Required: No Accompanied by: Self Is patient [...] FOOT HEEL SPUR 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 Rheumatoid arthritis [...] and obese Orientation: alert and oriented x3 HENMT Head: normocephalic Ears: hearing grossly normal bilaterally [...] significant improvement with MiraLAX twice daily and [id number] mg once daily. KUB revealed moderate fecal [...] smoker 01/26/25 1248 <Electronically signed by Shruthi dupree NP-C> Date _ Shruthi Espinoza Signature: Date (if applicable) CC: ~ [facility] Work Phone: Reason for referral (narrative)No reason for referral information [facility] [place] Work Phone: Summary Purpose Family History No [...] No October 25, 2021 2:03pm Power of Bakery Products Checker No October 25 2 2:03pm Advance Directive Response Recorded Date/ Time Name of Medical Power of Bakery Products Checker bhupinder bismark November 28, 2021 7:50pm Advance Directives No September 26 1 1:14pm Living Will Yes November 28, 2021 7:50pm Power of Bakery Products Checker Yes November 28 2 7:50pm Advance Directive Response Recorded Date/ Time Name of Medical Power of Bakery Products Checker bhupinder bismark November 28, 2021 7:50pm Advance Directives No September 26 1 1:14pm Living Will No December 17 2 3:55am Power of Bakery Products Checker No December 17 022 3:55am Advance Directive Response Recorded Date/ Time Name of Medical Power of Bakery Products Checker bhupinder barakat November 28, 2021 7:50pm Name of Medical Power of Bakery Products Checker bhupinder bismark January 02, 2022 12:50pm Advance Directives No September 26 1 1:14pm Living Will Yes Angelique 1st, 2 022 12:50pm Power of Bakery Products Checker Yes January 02, 2022 12:50pm Advance Directive Response Recorded Date/ Time Name of Medical Power of Bakery Products Checker bhupinder barakat November 28, 2021 6:50pm Name of Medical Power of Bakery Products Checker bhupinder barakat January 02, 2022 11:50am Advance Directives No September 26 12:14pm Living Will No March 14 5:43pm Power of Bakery Products Checker No March 14, 2022 5:43pm Advance Directive Response Recorded Date/ Time Name of Medical Power of Bakery Products Checker bhupinder barakat January 02, 2022 11:50am Advance Directives No September 26 12:14pm Living Will No March 29 10:41am Power of Bakery Products Checker No March 29, 2022 10:41am Advance Directive Response Recorded Date/ Time Advance Directives No September 26 12:14pm Living Will No March 29 10:41am Power of Bakery Products Checker No March 29, 2022 10:41am Advance Directive Response Recorded Date/ Time Name of Medical Power of Bakery Products Checker BHUPINDER MARTÍNEZ June 06, 2022 10:51am Advance Directives No September 26 12:14pm Living Will No June 07 6:10pm Power of Bakery Products Checker No June 07, 2022 6:10pm Advance Directive Response Recorded Date/ Time Name of Medical Power of Bakery Products Checker BHUPINDER MARTÍNEZ June 06, 2022 11:51am Name of Medical Power of Bakery Products Checker Duke Barakat August 13, 2022 10:00pm Advance Directives No September 26 1:14pm Living Will Yes August 13, 2022 10:00pm Power of Bakery Products Checker Yes August 13 10:00pm Advance Directive Response Recorded Date/ Time Name of Medical Power of Bakery Products Checker Duke Barakat August 13, 2022 10:00pm Advance Directives No September 26 1:14pm Living Will Yes August 13, 2022 10:00pm Power of Bakery Products Checker Yes August 13 10:00pm Advance Directive Response Recorded Date/ Time Name of Medical Power of Bakery Products Checker Duke Barakat August 13, 2022 10:00pm Advance Directives No December 31, 2020 12:33pm Living Will Yes August 13, 2022 10:00pm Power of Bakery Products Checker Yes August 13 10:00pm Advance Directive Response Recorded Date/ Time Name of Medical Power of Bakery Products Checker BHUPINDER SENIOR December 18, 2022 5:26am Advance Directives No December 31, 2020 12:33pm Living Will Yes December 18 5:26am Power of Bakery Products Checker Yes December 18 023 5:26am Advance Directive Response Recorded Date/ Time Name of Medical Power of Bakery Products Checker BHUPINDER SENIOR December 18, 2022 5:26am Advance Directives No December 31, 2020 12:33pm Living Will Yes December 18 10:41am Power of Bakery Products Checker No December 18 023 10:41am Latest Code Status on File Code Status Date Activated Date Inactivated Comments Full Code 01/01/2023 5:45 AM Latest Code Status on File Code Status Date Activated Date Inactivated Comments Full Code 01/01/2023 5:45 AM 01/11/2023 4:53 PM Healthcare Agents on File Name Relationship Healthcare Agent Relationshi p Communication [facility] Advance Directive Response Recorded Date/ Time Name of Medical Power of Bakery Products Checker BHUPINDER SENIOR December 18, 2022 5:26am Name of Medical Power of Bakery Products Checker Bhupinder Starkeyyvette January 13, 2023 2:24pm Advance Directives No December 31, 2020 12:33pm Living Will Yes January 13, 2023 2:24pm Power of Bakery Products Checker Yes January 2:24pm Documents on File Type Date Recorded 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 Advance Directives and Livin g Will 01/12/2023 1:40 PM Latest Code Status on File Code Status Date Activated Date Inactivated Comments Full Code 01/01/2023 5:45 AM 01/11/2023 4:53 PM Healthcare Agents on File Name Relationship Healthcare Agent Relationshi p Communication Bhupinder Ascencio [facility] Care Agent Advance Directive Response Recorded Date/ Time Advance Directives No February 02, 2023 11:35am Living Will Yes February 02 11:35am Power of Bakery Products Checker Yes February 02 023 11:35am Name of Medical Power of Bakery Products Checker BHUPINDER SENIOR December 18, 2022 5:26am Name of Medical Power of Bakery Products Checker Bhupinder Starkey, n iece January 13, 2023 2:24pm Advance Directive Response Recorded Date/ Time Advance Directives No February 02, 2023 10:35am Living Will Yes February 02 10:35am Power of Bakery Products Checker Yes February 02 10:35am Name of Medical Power of Bakery Products Checker BHUPINDER SENIOR December 18, 2022 4:26am Name of Medical Power of Bakery Products Checker Bhupinder Starkey, n iece January 13, 2023 1:24pm Advance Directive Response Recorded Date/ Time Advance Directives No February 02, 2023 10:35am Living Will Yes February 02 10:35am Power of Bakery Products Checker Yes February 02 10:35am Advance Directive Response Recorded Date/ Time Advance Directives on File No 2023 9:39am Advance Directives No February 02, 2023 10:35am Living Will Yes June 01 9:57am Power of Bakery Products Checker Yes June 01, 2023 9:39am Advance Directive Response Recorded Date/ Time Advance Directives on File No 2023 10:39am Advance Directives No February 02, 2023 11:35am Living Will Yes June 01 10:57am Power of Bakery Products Checker Yes June 01, 2023 10:39am Advance Directive Response Recorded Date/ Time Living Will Yes February 02 11:35am Power of Bakery Products Checker Yes February 02 11:35am Living Will Yes November 15, 2023 3:30pm Power of Bakery Products Checker No November 14 3:30pm Living Will No July 14, 2024 5:08pm Power of Bakery Products Checker No July 14 5:08pm Advance Directives No February 02, 2023 11:35am Advance Directive Response Recorded Date/ Time Living Will Yes February 02 11:35am Power of Bakery Products Checker Yes February 02 11:35am Living Will Yes November 15, 2023 3:30pm Power of Bakery Products Checker No November 14 3:30pm Living Will No July 14, 2024 5:08pm Power of Bakery Products Checker No July 14 5:08pm Living Will No July 15, 2024 1:25pm Power of Bakery Products Checker No July 15 1:25pm Advance Directives No February 02, 2023 11:35am Advance Directive Response Recorded Date/ Time Living Will Yes November 15, 2023 3:30pm Do you have a Healthcare Power of Bakery Products Checker? No November 15, 2023 3:30pm Living Will No July 14, 2024 5:08pm Do you have a Healthcare Power of Bakery Products Checker? No July 14, 2024 5:08pm Living Will No July 15, 2024 1:25pm Do you have a Healthcare Power of Bakery Products Checker? No July 15, 2024 1:25pm Do you have a Healthcare Power of Bakery Products Checker? No September 16, 2024 3:51pm Advance Directives No February 02, 2023 11:35am Advance Directive Response Recorded Date/ Time Living Will No July 14, 2024 5:08pm Do you have a Healthcare Power of Bakery Products Checker? No July 14, 2024 5:08pm Living Will No July 15, 2024 1:25pm Do you have a Healthcare Power of Bakery Products Checker? No July 15, 2024 1:25pm Do you have a Healthcare Power of Bakery Products Checker? No September 16, 2024 3:51pm Advance Directives No February 02, 2023 11:35am Advance Directive Response Recorded Date/ Time Do you have a Healthcare Power of Bakery Products Checker? No September 16, 2024 3:51pm Do you have a Healthcare Power of Bakery Products Checker? Yes November 13, 2024 4:26pm Name of Medical Power of Bakery Products Checker Aleksandr Lucas November 13, 2024 4:26pm Advance Directives No February 02, 2023 11:35am Advance Directive Response Recorded Date/ Time Do you have a Healthcare Power of Bakery Products Checker? No September 16, 2024 3:51pm Do you have a Healthcare Power of Bakery Products Checker? No November 13, 2024 9:42pm Name of Medical Power of Bakery Products Checker Aleksandr Lucas November 13, 2024 4:26pm Advance Directives No February 02, 2023 11:35am Advance Directive Response Recorded Date/ Time Do you have a Healthcare Power of Bakery Products Checker? No November 13, 2024 9:42pm Name of Medical Power of Bakery Products Checker Aleksandr Lucas November 13, 2024 4:26pm Advance [...] ARM RT ARM PAIN SCREENING general illness [facility] ER FU CHEST PAIN CHEST PAIN [...] ARM RT ARM PAIN SCREENING general illness [facility] ER FU CHEST PAIN CHEST PAIN CHEST PAIN CHEST PAIN [facility] FU 1 Y FU Reason for [...] ARM RT ARM PAIN SCREENING general illness [facility] ER FU CHEST PAIN CHEST PAIN CHEST PAIN CHEST PAIN CHEST PAIN WC FU 1 Y FU CERVICAL RADICULOPATHY. RX [...] ARM RT ARM PAIN SCREENING general illness [facility] ER FU CHEST PAIN CHEST PAIN CHEST PAIN CHEST PAIN CHEST PAIN [facility] FU 1 Y FU CERVICAL RADICULOPATHY. RX HERE 4 M FU SEIZURE Reason for Visit Cough Chest pain Intractable pain Neck pain Cervical radiculopathy Left shoulder pain Neck pain Left upper extremity numbness Essential (primary) hypertension History of coronary artery stent placement Hyperlipidemia Obesity LINA (obstructive sleep apnea) Chief Complaint RT ARM PAIN SCREENING general illness [facility] ER FU CHEST PAIN CHEST PAIN CHEST PAIN CHEST PAIN CHEST PAIN [facility] FU 1 Y FU CERVICAL RADICULOPATHY. RX HERE 4 M FU SEIZURE FALL Reason for Visit Cough Chest pain Intractable pain Neck pain Cervical radiculopathy Left shoulder pain Neck pain Left upper extremity numbness Essential (primary) hypertension History of coronary artery stent placement Hyperlipidemia Obesity LINA (obstructive sleep apnea) Chief Complaint CERVICAL RADICULOPAT HY. RX HERE 4 M FU SEIZURE FALL [facility] ER FU Wants Covid Test LABSPEC Reason for Visit Obesity LINA (obstructive sleep apnea) Seizures Exposure to COVID-19 virus Chief Complaint CERVICAL RADICULOPAT HY. RX HERE 4 M FU SEIZURE FALL [facility] ER FU Wants Covid Test LABSPEC [...] 8:51a m Atherosclerotic heart diseas e of [place] coronary artery without angina pectoris September 19, [...] 8:51a m Atherosclerotic heart diseas e of [place] coronary artery without angina pectoris September 19, [...] m Chest soreness 2 years post CABG May 19t h, 2025 8:51am HOSP FU September 21, 2024 10:36 [...] 8:51a m Atherosclerotic heart diseas e of [place] coronary artery without angina pectoris September 19, [...] 8:51a m Atherosclerotic heart diseas e of [place] coronary artery without angina pectoris September 19, [...] 8:51a m Atherosclerotic heart diseas e of [place] coronary artery without angina pectoris September 19, [...] 8:51a m Atherosclerotic heart diseas e of [place] coronary artery without angina pectoris September 19, [...] 8:51a m Atherosclerotic heart diseas e of [place] coronary artery without angina pectoris September 19, [...] 8:51a m Atherosclerotic heart diseas e of [place] coronary artery without angina pectoris September 19, [...] CABG (coronary artery bypass graft) Kassy Tabares, FIELD SUPERINTENDENT - TANK CLEANING SUPERVISOR [address] [facility] [address] [place] [address] Referral ID Status Reason Start Date Expiration Date Visits Re quested Visits Authorized [id number] Closed 1 1 Additional Source Comments INFORMATION SOURCE (unrecogn ized section and content) DATE CREATED AUTHOR 10/27/2017 [facility] DATE CREATED AUTHOR AUTHOR'S ORGANIZ ATION 10/27/2017 [facility] DATE CREATED AUTHOR AUTHOR'S ORGANIZ ATION 06/21/2018 [facility] DATE CREATED AUTHOR AUTHOR'S ORGANIZ ATION 01/07/2023 [facility] DATE CREATED AUTHOR AUTHOR'S ORGANIZ ATION 03/10/2025 [facility] Goals (unrecognized section and content) [...] Refer ring Provider Active Dr. Parker Pickett , Attending Provider Active Team Status: Inactive Member [...] Dr. Bhanu Milian MD Other Provider Active Signal Inspector Relationship Specialty Start Date End Date Mayda Garcia [address] [place] [address] PCP - General Internal Medicine 12/23/22 Signal Inspector Relationship Specialty Start Date End Date Mayda Garcia [address] [place] [address] PCP - General Internal Medicine 12/23/22 Signal Inspector Relationship Specialty Start Date End Date Mayda Garcia [address] [place] [address] PCP - General Internal Medicine 12/23/22 Signal Inspector Relationship Specialty Start Date End Date Mayda Garcia [address] [place] [address] PCP - General Internal Medicine 12/23/22 Signal Inspector Relationship Specialty Start Date End Date Mayda Garcia [address] [place] [address] PCP - General Internal Medicine 12/23/22 Signal Inspector Relationship Specialty Start Date End Date Mayda Garcia [address] [place] [address] PCP - General Internal Medicine 12/23/22 Team Status: Inactive Member Role Status Dates Dr. Mayda Garcia MD Primary Care Provider Active Dr. Robbin Carlos MD Admit Provider, Attending Provid er Active Signal Inspector Relationship Specialty Start Date End Date Mayda Garcia [address] [place] [address] PCP - General Internal Medicine 12/23/22 Team Status: Inactive Member Role Status Dates Dr. Mayda Garcia MD Primary Care Provider Active Dr. Pepe Ruiz MD Attending Provider, Referring Provider Active Team Status: Inactive Member Role Status Dates Dr. Mayda Garcia MD Primary Care Provider, Refer ring Provider Active Carlos Bravo NP, LEAD SIMULATION MODELING ENGINEER-C Attending Provider Active Team Status: Inactive Member Role Status Dates Dr. Mayda Garcia MD Primary Care Provider Active Carlos Bravo LEAD SIMULATION MODELING ENGINEER, LEAD SIMULATION MODELING ENGINEER-C Attending Provider, Referring Pro vider Active Team Status: Active Member Role Status Dates Dr. Mayda Garcia MD Primary Care Provider Active Dr. Winston Johnson MD Attending Provider Active Team Status: Inactive Member Role Status Dates Dr. Mayda Garcia MD Primary Care Provider, Refer ring Provider Active Vanita Venegas LEAD SIMULATION MODELING ENGINEER, LEAD SIMULATION MODELING ENGINEER-C Attending Provider Active Team Status: Active Member Role Status Dates Dr. Mayda Garcia MD Primary Care Provider Active Dr. Winston Johnson MD Attending Provider, Referring Pro vider Active Team Status: Inactive Member Role Status Dates Dr. Mayda Garcia MD Primary Care Provider Active Vanita Venegas LEAD SIMULATION MODELING ENGINEER, LEAD SIMULATION MODELING ENGINEER-C Attending Provider, Referrin g Provider Active [...] MD Primary Care Provider Active Vanita Venegas NP, LEAD SIMULATION MODELING ENGINEER-C Attending Provider, Referrin g Provider Active [...] Primary Care Provider, Refer ring Provider Active GANESH NURSE Attending Provider Active Team Status: Inactive [...] End: April 20, 2024 Vanita Venegas LEAD SIMULATION MODELING ENGINEER, LEAD SIMULATION MODELING ENGINEER-C Attending Provider Active Start: April 20, 2024 End: April 20, 2024 Vanita Venegas LEAD SIMULATION MODELING ENGINEER, LEAD SIMULATION MODELING ENGINEER-C Referring Provider Active Start: April 20, [...] Start: April 25, 2024 Vanita Venegas LEAD SIMULATION MODELING ENGINEER, LEAD SIMULATION MODELING ENGINEER-C Referring Provider Active Start: April 25, 2024 Vanita Venegas LEAD SIMULATION MODELING ENGINEER, LEAD SIMULATION MODELING ENGINEER-C Other Provider Active Start: April 25, [...] End: September 28, 2024 Vanita Venegas LEAD SIMULATION MODELING ENGINEER, LEAD SIMULATION MODELING ENGINEER-C Attending Provider Active Start: September 28, [...] End: October 20, 2024 Vanita Venegas LEAD SIMULATION MODELING ENGINEER, LEAD SIMULATION MODELING ENGINEER-C Attending Provider Active Start: October 20, 2024 End: October 20, 2024 Vanita Venegas LEAD SIMULATION MODELING ENGINEER, LEAD SIMULATION MODELING ENGINEER-C Referring Provider Active Start: October 20, [...] End: September 28, 2024 Vanita Venegas LEAD SIMULATION MODELING ENGINEER, LEAD SIMULATION MODELING ENGINEER-C Attending Provider Active Start: September 28, [...] End: October 20, 2024 Vanita Venegas LEAD SIMULATION MODELING ENGINEER, LEAD SIMULATION MODELING ENGINEER-C Attending Provider Active Start: October 20, 2024 End: October 20, 2024 Vanita Venegas LEAD SIMULATION MODELING ENGINEER, LEAD SIMULATION MODELING ENGINEER-C Referring Provider Active Start: October 20, [...] End: September 28, 2024 Vanita Venegas LEAD SIMULATION MODELING ENGINEER, LEAD SIMULATION MODELING ENGINEER-C Attending Provider Active Start: September 28, [...] End: October 20, 2024 Vanita Venegas LEAD SIMULATION MODELING ENGINEER, LEAD SIMULATION MODELING ENGINEER-C Attending Provider Active Start: October 20, 2024 End: October 20, 2024 Vanita Venegas LEAD SIMULATION MODELING ENGINEER, LEAD SIMULATION MODELING ENGINEER-C Referring Provider Active Start: October 20, [...] Active Start: November 11, 2024 Vanita Venegas LEAD SIMULATION MODELING ENGINEER, LEAD SIMULATION MODELING ENGINEER-C Attending Provider Active Start: November 11, 2024 Vanita Venegas LEAD SIMULATION MODELING ENGINEER, LEAD SIMULATION MODELING ENGINEER-C Referring Provider Active Start: November 11, 2024 [...] Star t: November 14, 2024 Dr. Aleksandr Salinsa MD Attending Provider Active Start: November 14, [...] 2024 End: November 11, 2024 Vanita Venegas LEAD SIMULATION MODELING ENGINEER, LEAD SIMULATION MODELING ENGINEER-C Attending Provider Active Start: November 11, 2024 End: November 11, 2024 Vanita Venegas LEAD SIMULATION MODELING ENGINEER, LEAD SIMULATION MODELING ENGINEER-C Referring Provider Active Start: November 11, 2024 [...] End: October 20, 2024 Vanita Venegas LEAD SIMULATION MODELING ENGINEER, LEAD SIMULATION MODELING ENGINEER-C Attending physician Active Start: October 20, 2024 End: October 20, 2024 Vanita Venegas LEAD SIMULATION MODELING ENGINEER, LEAD SIMULATION MODELING ENGINEER-C Referring Provider Active Start: October 20, [...] 2024 End: November 11, 2024 Vanita Venegas LEAD SIMULATION MODELING ENGINEER, LEAD SIMULATION MODELING ENGINEER-C Attending physician Active Start: November 11, 2024 End: November 11, 2024 Vanita Venegas LEAD SIMULATION MODELING ENGINEER, LEAD SIMULATION MODELING ENGINEER-C Referring Provider Active Start: November 11, 2024 End: November 11, 2024 Team Status: Inactive Member Role/Relationship Status Dates Dr. Mayda Garcia MD Primary care physician Activ e Start: November 13, 2024 End: November 14, 2024 Dr. Turner Armendariz , Emergency Departmen t Physician Active Start: November 13, 2024 End: November 14, 2024 Dr. Edwin Kaplan , Admitting physician Active Start: November 13 End: November 14, 2024 Dr. Edwin Kaplan , Nurse Practitioner Active Start: November 13 End: [...] Start: November 14, 2024 Dr. Turner Armendariz , [...] End: January 23, 2025 Suzi Appiah NP LEAD SIMULATION MODELING ENGINEER-C Attending physician Active Start: January 23, 2025 [...] End: October 20, 2024 Vanita Venegas LEAD SIMULATION MODELING ENGINEER, LEAD SIMULATION MODELING ENGINEER-C Attending physician Active Start: October 20, 2024 End: October 20, 2024 Vanita Venegas LEAD SIMULATION MODELING ENGINEER, LEAD SIMULATION MODELING ENGINEER-C Referring Provider Active Start: October 20, [...] 2024 End: November 11, 2024 Vanita Venegas LEAD SIMULATION MODELING ENGINEER, LEAD SIMULATION MODELING ENGINEER-C Attending physician Active Start: November 11, 2024 End: November 11, 2024 Vanita Venegas LEAD SIMULATION MODELING ENGINEER, LEAD SIMULATION MODELING ENGINEER-C Referring Provider Active Start: November 11, 2024 [...] Start: November 14, 2024 Dr. Turner Armendariz , Emergency Departmen t Physician Active Start: November [...] Start: November 14, 2024 Dr. Turner Armendariz , Emergency Departmen t Physician Active Start: November [...] 2025 End: January 19, 2025 SYDNEY Stout Attending physician Active Start: January 19, 2025 End: January 19, 2025 Team Status: Inactive Member Role/Relationship Status Dates Dr. Mayda Garcia MD Primary care physician Activ e Start: January 23, 2025 End: January 23, 2025 Dr. 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 [I25.10] Procedures WI CABG W/ARTERIAL GRAFT THREE ARTERIAL GRAFTS WI ECHO TRANSESOPHAG R-T 2D W/PRB IMG ACQUISJ I&R CABG AND SIS Echocardiography transesophageal real-time Azam Rose MD [address] [place] [address], [address] [place] [address] [address] [place] [address] Referral ID Status Reason Start Date Expiration Date Visits Re quested Visits Authorized [id number] 1 1 Reason Comments Post-op Scheduled Active [...] 0810 (Given - Provider: Anna Escalera, KARINA) 808 (Given - Provider: Anna Escalera RN) [...] Tom RN) 0814 (Given - Provider: Anna Escalera, KARINA) 0811 (Given - Provider: Anna Escalera, KARINA) heparin injection 5,000 Units 5,000 Units, SubCUTAneous, 2 times daily, First dose on Thu01/04/23 at 0900 1007 (Given - Provider: Herminia Tom RN)2008 (Given - Provider: Nilsa Hills RN) 08 (Given - Provider: Anna Escalera, KARINA)2052 (Given - Provider: Nilsa Hills RN) 08 (Given - Provider: Anna Escalera, KARINA) Lidocaine [...] RN) 0758 (Medication Applied - Provider: Anna Escalera RN)1445 (Due: Medication Removed - Provider: Automatic Discharge [...] Maurilio Busby RN) 0534 (Given - Provider: Nisla Hills RN) 0600 (Given - Provider: Nilsa [...] BE BASED ON THE PRIMARY CLINICAL RECORDS. [facility]. provides no warranty or guarantee of the accuracy or completeness of information in this document.
[2025-04-08 15:58] LABS: Hematocrit 36.2 % (37-47); Hemoglobin 12.0 g/dL (12.0-15.0); Immature Granulocytes Count 0.000 X10^3/uL (0.0-0.0); Mean Corp Hgb Conc 33.1 g/dL (32-36); Mean Corpuscular Volume 96.5 fL (81-99); Mean Platelet Vol. 11.2 fl (6.2-12.0); NRBC Flagged by Analyzer 0 % (0-5); Platelet Count 149 K/mm3 (150-450); RBC Distribution Width CV 13.5 % (11.6-14.6); RBC Distribution Width SD 48.6 fl (35.1-43.9); Red Blood Count 3.75 M/mm3 (4.2-5.4); White Blood Count 3.4 K/mm3 (4.4-11.0)
[2025-04-08] MEDS: 0.9% Normal Saline (1000mL) 1,000 ML 999 ML IV (15:59)
[2025-04-08 16:22] LABS: Troponin T High Sensitivity < 6 ng/L (<=14)
[2025-04-08 16:24] LABS: Magnesium 2.4 mg/dL (1.5-2.2)
[2025-04-08 16:29] VITALS: BP 152/80
[2025-04-08 16:31] VITALS: BP 152/80; PULSE 80; RESP 18; TEMP 36.8; O2SAT 100
[2025-04-08 16:33] LABS: Mucous, Urine 0 SEEN /hpf (<or=2+); Red Blood Cells-Urine 0 SEEN /hpf (0-5); Squamous Epithelial Cells - UA 0 SEEN /hpf (5-10)
[2025-04-08 16:35] LABS: Color, Urine Yellow (Yellow); Glucose, Dipstick Normal (Normal); Ketone-Dipstick Negative (Negative); Leukocyte Esterase-Dipstick 25 /ul (Negative); Nitrite-Dipstick Negative (Negative); Occult Blood-Urine Negative /ul (Negative); Protein-Dipstick 15 mg/dl (Negative); Specific Gravity, Urine 1.010 (1.002-1.030); Urine Bilirubin Dipstick Negative (Negative)
[2025-04-08 16:36] LABS: AST(SGOT) 29 U/L (<=31); Alanine Aminotransfer ALT/SGPT 25 U/L (<=34); Albumin, Serum 3.7 g/dL (3.4-4.8); Alkaline Phosphatase 70 U/L (35-104); Anion Gap 9 (5-15); BUN 15 mg/dL (4-19); BUN/Creat Ratio 13.2 RATIO (10-20); Calcium,Total 8.8 mg/dL (7.6-11.0); Carbon Dioxide 24.1 mmol/L (21.0-32.0); Chloride 103 mmol/L (98-108); Estimated Creatinine Clearance 42.91 ml/min (50-250); Globulin 3.3 g/dL (2.2-4.2); Glucose 105 mg/dL (70-99); Potassium 5.2 mmol/L (3.3-5.1)
[2025-04-08 17:05] VITALS: BP 158/77; PULSE 73; RESP 18; TEMP 36.9; O2SAT 100
[2025-04-08 18:00] VITALS: BP 153/76; PULSE 72; O2SAT 100
[2025-04-08 18:14] LABS: Troponin T High Sens 2 HR 6 ng/L (<=14)
[2025-04-08 18:18] VITALS: BP 153/76; PULSE 72; RESP 18; TEMP 36.9; O2SAT 100
== END 2025-04-08 18:37 | disposition home or self-care (01) ==
PROVIDERS: Emergency Provider Surgery; PCP Internal Medicine; Visit Provider Surgery
DX: R05.8 Other specified cough (principal); I11.0 Hypertensive heart disease with heart failure; I50.32 Chronic diastolic (congestive) heart failure; E11.9 Type 2 diabetes mellitus without complications; R07.89 Other chest pain; M79.10 Myalgia, unspecified site; D72.819 Decreased white blood cell count, unspecified; D69.6 Thrombocytopenia, unspecified; Z79.82 Long term (current) use of aspirin; Z79.84 Long term (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 of oral hypoglycemic drugs; Z79.899 Other long term (current) drug therapy
CPT/HCPCS: 71046; 80053; 81001; 83735; 84484; 85025; 87631; 93005; 96361; 96374; 96375; 99285; A4216; J2405

== ENCOUNTER 2025-04-24 09:55 | Inpatient (IN) | payer MEDICARE, SELFPAY ==
[2023-07-29 08:29] VITALS: BMI 30.2
[2025-04-24] VITALS (8 sets, daily range): BP systolic 127–158; BP diastolic 62–100; PULSE 72–99; RESP 14–16; TEMP 36.6–36.9; O2SAT 96–100; BMI 30.8; BMI 29.4
--- NOTE | 2025-04-24 10:38 | EKG12_ITS ---
Test Reason : Blood Pressure : */* mmHG Vent. Rate : 86 BPM Atrial Rate : 86 BPM P-R Int : 138 ms QRS Dur : 78 ms QT Int : 370 ms P-R-T Axes : 65 8 36 degrees QTcB Int : 442 ms Normal sinus rhythm Normal ECG Confirmed by Kyle Francisco ([id number]), non linear editor ADIA ARDON ([id number]) on 04/25/2025 11:02:25 AM Also confirmed by Kyle Francisco ([id number]), non linear editor ADIA ARDON ([id number]) on 04/26/2025 11:12:01 AM Referred By: EVELIN Confirmed By: Kyle Francisco
--- NOTE | 2025-04-24 10:38 | CT_ITS ---
PROCEDURE: CTA HEAD AND NECK W/ CONTRAST 04/24/2025 REASON FOR EXAM: LEFT ARM NUMBNESS/WEAKNESS TECHNIQUE: Procedure Code: CTCTA.HDNCK Modality: CT Procedure: CTA HEAD AND NECK W/ CONTRAST Multiplanar Sagittal and Coronal images were obtained. CONTRAST: Isovue 370 VOLUME: 100 mL One or more dose reduction techniques were used (e.g., Automated exposure control, adjustment of the mA and/or kV according to patient size, use of iterative reconstruction technique). RADIATION DOSE SUMMARY: CTDlvol: 11+ 26 mGy DLP: 891 mGycm COMPARISON: 01/02/2022. FINDINGS: CT head: Mild global parenchymal atrophy. Mild periventricular white matter hypodensity likely representing chronic microvascular ischemia. Partially empty sella turcica. No evidence of acute hemorrhage or infarction. No extra-axial blood or fluid collections. The paranasal sinuses and mastoid air cells are clear. The calvarial vault and skull base are intact. CTA neck: Atherosclerosis of the aortic arch. Atherosclerosis of the bilateral common carotid arteries without significant stenosis. Atherosclerosis of the bilateral carotid bulbs/proximal internal carotid arteries without hemodynamically significant stenosis. The left cervical vertebral artery is mildly dominant when compared to the right cervical vertebral artery, an anatomic variant. The cervical vertebral arteries are patent without significant stenosis. The lung apices are clear. Heterogeneous and hypodense lesions within the thyroid likely represent nodules. The largest measures 2.2 cm. Further characterization with nonemergent ultrasound is recommended. CTA head: Atherosclerosis of the carotid siphons with less than 50% stenosis. The anterior cerebral, anterior communicating, middle cerebral, and posterior cerebral arterial circulation is patent. origin of the right posterior cerebral artery, an anatomic variant. Atherosclerosis of the right intracranial vertebral artery resulting in short-segment stenosis of 75%. The superior cerebellar, anterior inferior cerebellar, and posterior inferior cerebellar arteries are patent. CT/CTA Head AND Neck W/ Contrast IMPRESSION: No acute intracranial hemorrhage or territorial infarction. Chronic microvascular ischemic changes with mild global parenchymal atrophy. Short segment high grade stenosis of the right intracranial vertebral artery, a pproximately 75 percent. Atherosclerosis of the carotid siphons with less than 50 percent stenosis. No hemodynamically significant stenosis of the cervical carotid or vertebral ar teries. Incidental thyroid nodules, largest measuring 2.2 cm. Nonemergent thyroid ultra sound is recommended for further characterization. Reading Location: [facility]
--- NOTE | 2025-04-24 10:38 | CT_ITS ---
PROCEDURE: BRAIN/HEAD WITHOUT CONTRAST 04/24/2025 REASON FOR EXAM: LEFT ARM NUMBNESS/WEAKNESS TECHNIQUE: Procedure Code: CTBR Modality: CT Procedure: BRAIN/HEAD WITHOUT CONTRAST Coronal and Sagittal reconstruction series were provided. One or more dose reduction techniques were used (e.g., Automated exposure control, adjustment of the mA and/or kV according to patient size, use of iterative reconstruction technique. COMPARISON: CT head 08/13/2022 FINDINGS: There is no extra-axial or intra-axial intracranial hemorrhage. No mass effect or midline shift is seen. The ventricles, sulci, and cisterns are normal in size and shape for the patient's age. Stable bilateral basal ganglia calcifications. There is normal reynoso-white matter differentiation. The posterior fossa is grossly unremarkable. The skull is unremarkable. Visualized paranasal sinuses are clear. The mastoid air cells show normal translucency. CT/Brain/Head without Contrast IMPRESSION: No intracranial hemorrhage. No mass effect or midline shift. Reading Location: [facility]
--- NOTE | 2025-04-24 10:39 | RAD_ITS ---
PROCEDURE: CHEST PA AND LATERAL 04/24/2025 REASON FOR EXAM: SOB TECHNIQUE: Procedure Code: RADCXR Modality: DX Procedure: CHEST PA AND LATERAL COMPARISON: 04/08/2025. FINDINGS: Prior sternotomy. The heart is borderline enlarged. The lungs are clear. No acute osseous abnormalities.
[2025-04-24] MEDS: 0.9% Normal Saline (1000mL) 1,000 ML 1000 ML IV (11:06)
[2025-04-24 11:13] LABS: Hematocrit 36.2 % (37-47); Hemoglobin 11.9 g/dL (12.0-15.0); Immature Granulocytes Count 0.010 X10^3/uL (0.0-0.0); Mean Corp Hgb Conc 32.9 g/dL (32-36); Mean Corpuscular Volume 98.9 fL (81-99); Mean Platelet Vol. 11.1 fl (6.2-12.0); NRBC Flagged by Analyzer 0 % (0-5); Platelet Count 141 K/mm3 (150-450); RBC Distribution Width CV 14.3 % (11.6-14.6); RBC Distribution Width SD 52.5 fl (35.1-43.9); Red Blood Count 3.66 M/mm3 (4.2-5.4); White Blood Count 4.9 K/mm3 (4.4-11.0)
[2025-04-24 11:30] LABS: Troponin T High Sensitivity 8 ng/L (<=14)
--- NOTE | 2025-04-24 11:49 | EX.ED.VIS.HA ---
HPI History of Present Illness Chief Complaint: Headache Narrative Narrative: Patient is a 74-year-old female presenting to the emergency department for left arm weakness and numbness that started Thursday evening. She states that she woke up Thursday and the symptoms had significantly worsened. 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 She also endorses a left-sided headache that started gradually yesterday. She states that she took Tylenol at home for her headache. She denies any recent head trauma or falls. She is not on any oral anticoagulation. She endorses pain rating down from her head into her left arm and shoulder blade. She is endorsing some mild shortness of breath that she states started this morning. She denies any chest pain. Denies any abdominal pain, nausea or vomiting. [facility] Medical History Congestive heart failure (CHF) Sinusitis Allergic rhinitis Pain of right great toe Keloid scar of skin Vertigo Chest pain Wears partial dentures Injury of head and neck Gastric reflux Encounter for transesophageal echo performed as part of open chest procedure History of echocardiogram History of stress test Tremor Retained suture Chest wall tenderness Dyspnea on exertion Fatigue Flu vaccine need Lower extremity edema History of coronary artery disease History of hypertension Left ankle pain Right hip pain Right groin pain Memory changes Left shoulder pain Cervical radiculopathy Cough Health care maintenance Right shoulder pain Therapeutic drug monitoring Osteoporosis Compression fracture of lumbar spine, non-traumatic Dysuria Dysuria Urinary frequency Acute back pain Personal history of colonic polyps GERD (gastroesophageal reflux disease) Hyperglycemia due to type 2 diabetes mellitus Wears glasses Diabetes Arthritis Anemia Non-smoker CPAP (continuous positive airway pressure) dependence Sleep apnea Shortness of breath on exertion Cardiology follow-up encounter Abdominal pain Osteoarthritis Congestive heart failure (CHF) Routine health maintenance Colon cancer screening Foreign body in stomach Seizure disorder Type 2 diabetes mellitus Diabetes mellitus type 2 in nonobese Obesity Urinary frequency Conversion disorder Non-toxic goiter Essential (primary) hypertension RIGHT FOOT HEEL SPUR Atherosclerotic heart disease of ramona coronary artery without angina pectoris Rheumatoid arthritis Diabetes type 2, controlled Hives Seasonal allergies Hyperlipidemia Chronic diastolic CHF (congestive heart failure) Home Medications ?Medication ?Instructions ?Recorded ?Last Taken ?Type multivitamin 1 tab PO DAILY vitamin 05/20/19 04/22/25 History blood-glucose meter (True Metrix #1 ea 02/03/20 Unknown Rx Air Glucose Meter kit) calcium citrate 200 mg PO DAILY supplement 05/21/20 04/22/25 History disability placard #1 ea 06/27/20 Unknown Rx aspirin 81 mg tablet,delayed 81 mg PO DAILY heart 08/13/20 04/22/25 History release (Adult Low Dose Aspirin) blood sugar diagnostic (True #100 ea 06/17/23 Unknown Rx Metrix Glucose Test Strip) lancets 33 gauge #100 ea 06/17/23 Unknown Rx Handicap Placard #1 ea 01/07/24 Unknown Rx gabapentin 300 mg capsule 300 mg PO QHS #30 caps 02/14/24 04/22/25 Rx metoprolol tartrate 25 mg tablet 25 mg PO QDAY heart #90 tabs 04/19/24 04/22/25 Rx hydroxychloroquine 200 mg tablet See Rx Instructions .Route 09/21/24 04/22/25 Rx .COMPLEX immunosuppressant #180 tabs sitagliptin phosphate 100 mg See Rx Instructions .Route 09/21/24 04/22/25 Rx tablet (Januvia) .COMPLEX diabetes #90 tabs divalproex 500 mg tablet,delayed 500 mg .Route .COMPLEX seizures 11/07/24 04/22/25 Rx release (Depakote) #90 tabs pantoprazole 40 mg tablet,delayed 40 mg PO QDAY #90 tabs 01/19/25 04/22/25 Rx release atorvastatin 80 mg tablet 80 mg PO QHS cholesterol #90 tabs 01/23/25 04/22/25 Rx evolocumab 140 mg/mL subcutaneous 140 mg subcut Q2W #2 mL 01/23/25 04/10/25 Rx pen injector (Repatha SureClick) furosemide 40 mg tablet (Lasix) 20 mg PO DAILY 01/23/25 04/22/25 History denosumab 60 mg/mL subcutaneous 60 mg subcut [id number] bone health 01/26/25 03/04/25 Rx syringe (Prolia) #1 mL CPAP - Continuous Positive Airway 02/13/25 Unknown History Pressure([facility] INFORMATIONAL USE ONLY) linaclotide 72 mcg capsule 72 mcg PO QAM #30 caps 02/27/25 04/22/25 Rx (Linzess) levocetirizine 5 mg tablet (Xyzal) 5 mg PO QPM PRN allergy symptoms 03/17/25 04/22/25 Rx #90 tabs fluticasone furoate 27.5 2 spray intranasal QDAY PRN 04/24/25 04/22/25 History mcg/actuation nasal allergy symptoms spray,suspension (Flonase Sensimist) Allergy/AdvReac Type Severity Reaction Status Date / Time prednisone AdvReac Severe Hives Verified 04/24/25 09:55 Family History Grandmother Alcoholism Cancer Arthritis Mother Alcoholism Diabetes blood clots Hypertension Grandfather Heart disease Sister Thyroid disorder Other Breast cancer Cervical cancer Colon cancer Surgical History History of coronary artery bypass graft History of cardiac catheterization History of left heart catheterization (09/20/18) History of coronary artery stent placement (03/22/18) History of carpal tunnel surgery History of section H/O: hysterectomy Social History household members: none housing: apartment Smoking Status: Never smoker second hand exposure: No alcohol intake: current alcohol intake frequency: holidays/special occasions only substance use type: does not use what type of physical activity do you participate in: none ROS ROS ED ROS Narrative See HPI EXAM Physical Exam Narrative Exam Narrative: Vital signs: Reviewed General: Alert and orientedx3. No acute distress. Well appearing, nontoxic. HEENT: Head is normocephalic and atraumatic, sinuses nontender, pupils equal round and reactive. Nares are patent. Oropharynx and throat exams normal. Neck: Supple without lymphadenopathy nontender Cardiovascular: Regular rate and rhythm, no murmurs. No rubs or gallops. Normal S1 and S2 Respiratory: Clear to auscultation bilaterally. No wheezes, rales, rhonchi Abdominal: Soft and nontender. Normal bowel sounds. No guarding or rebound. Nonsurgical abdomen Extremities: No lower extremity edema. No tenderness. No bruising. Normal range of motion. Normal sensation. Skin: No rash or redness. Neurological: Cranial nerves II through XII are grossly intact. 4-5 strength in the left upper extremity. Decreased paper reeler strength in the left upper extremity. Decreased sensation in the left upper extremity compared to the right. Normal strength and sensation in the right upper extremity and bilateral lower extremities. Normal cerebellar function The rest of the physical exam is unremarkable Const Vital Signs: 04/24/25 09:55 04/24/25 12:27 04/24/25 13:00 Temperature 98.2 F 97.9 F Temperature Source Temporal Pulse Rate 99 72 89 Respiratory Rate 16 16 14 Blood Pressure 152/82 H 134/100 H 152/78 H Blood Pressure Mean 105 111 102 Pulse Ox 100 99 100 Oxygen Delivery Method Room Air Room Air 04/24/25 15:00 Temperature Temperature Source Pulse Rate 84 Respiratory Rate 16 Blood Pressure 158/84 H Blood Pressure Mean 108 Pulse Ox 100 Oxygen Delivery Method Room Air NIHSS NIHSS Initial: 1a Level of Consciousness: 0 1b LOC Questions (Score 2 if aphasic/stupor): 0 1c LOC Commands (Only score 1st attempt): 0 2 Best Gaze (If aphasic, use reflexive mvmts.): 0 3 Visual: 0 4 Facial Palsy: 0 5 Motor Arm Right (UN = amputation/fusion): 0 5 Motor Arm Left: 1 6 Motor Leg Right: 0 6 Motor Leg Left: 0 7 Limb ataxia (Only + if out of proportion): 0 8 Sensory (Aphasia/stupor=0 or 1, coma=2): 1 9 Best Language: 0 10 Dysarthria (mute, coma=2, intubated=UN): 0 11 Extinction and Inattention (only scored if +): 0 Total Score: 2 MDM MDM MDM Narrative Medical decision making narrative: Patient is a 74-year-old female presenting to the emergency department for left arm paresthesias and a left-sided headache. Patient was seen and examined. Vitals are stable. Patient resting in bed comfortably in no acute distress. Differential includes but is not limited to: Stroke, ACS, pneumonia, pneumothorax, electrolyte imbalance, less likely aortic pathology as she has no chest pain, pulses are intact throughout, no significant hypotension Patient was started on fluids, given Reglan for symptomatic control. After the CT imaging is done I will review it and give her Toradol if there is no intracranial bleeding. EKG shows normal sinus rhythm at a rate of 86 with no ischemic changes. No dysrhythmia. CBC with no leukocytosis and chronic anemia 11.9. BMP with no significant abnormalities. Troponin and reflex within normal limits. Magnesium within normal limits. CT brain shows no acute intracranial abnormalities. CTA of the head and neck shows no acute intracranial hemorrhage or territorial infarction. Chronic microvascular ischemic changes with mild global parenchymal atrophy. Short segment high grade stenosis of the right intracranial vertebral artery, approximately 75 percent. Atherosclerosis of the carotid siphons with less than 50 percent stenosis. No hemodynamically significant stenosis of the cervical carotid or vertebral arteries. Incidental thyroid nodules, largest measuring 2.2 cm. Nonemergent thyroid ultrasound is recommended for further characterization. Chest x-ray reviewed by myself and shows cardiomegaly with no opacities, pneumothorax or wide mediastinum. Radiology read in agreement. I reevaluated the patient and updated her on the findings. I do not think the high-grade stenosis of the intracranial vertebral artery is causing her symptoms. With the patient's continued NIH of 2 I think she does need admission for MRI and further neurologic testing. Patient is agreeable with the plan. Patient mated to hospitalist, Dr. Rodriguez for further management. Clinical impression Strokelike symptoms Headache History & Record Review Discussion w/independent historian: Patient and Family Lab Data Attestation: I reviewed the patient's lab results. Labs: Laboratory Results - last 24 hr 04/24/25 04/24/25 04/24/25 11:00 13:00 15:03 WBC 4.9 RBC 3.66 L Hgb 11.9 L Hct 36.2 L MCV 98.9 MCH 32.5 H MCHC 32.9 RDW Std Deviation 52.5 H RDW Coeff of Lawrence 14.3 Plt Count 141 L MPV 11.1 Immature Gran % (Auto) 0.200 Neut % (Auto) 74.2 H Lymph % (Auto) 18.9 L Emanuel % (Auto) 5.7 Eos % (Auto) 0.8 Baso % (Auto) 0.2 Absolute Neuts (auto) 3.6 Absolute Lymphs (auto) 0.92 Nucleated RBC % 0 Sodium 141 Potassium 4.5 Chloride 106 Carbon Dioxide 20.1 L Anion Gap 15 BUN 22 H Creatinine 1.12 Estim Creat Clear Calc 43.45 L Est GFR (MDRD) Non-Af 52 L BUN/Creatinine Ratio 19.8 Glucose 106 H Calcium 9.1 Magnesium 1.9 Troponin T High Sens 8 D Troponin T Hi Sens 2 Hr 7 POC Glucose 75 Radiography Chest X-Ray - ED: Read by ED Physician and Cardiomegaly Diagnostic Testing: Clinical Impression(s) from Imaging Studies Brain CT 04/24/25 10:38 IMPRESSION: No intracranial hemorrhage. No mass effect or midline shift. Reading Location: [facility] Head/Neck CTA 04/24/25 10:38 IMPRESSION: No acute intracranial hemorrhage or territorial infarction. Chronic microvascular ischemic changes with mild global parenchymal atrophy. Short segment high grade stenosis of the right intracranial vertebral artery, approximately 75 percent. Atherosclerosis of the carotid siphons with less than 50 percent stenosis. No hemodynamically significant stenosis of the cervical carotid or vertebral arteries. Incidental thyroid nodules, largest measuring 2.2 cm. Nonemergent thyroid ultrasound is recommended for further characterization. Reading Location: [facility] Chest X-Ray 04/24/25 10:39 IMPRESSION: No acute cardiopulmonary abnormalities. Cardiomegaly. Reading Location: [facility] Discharge Plan Disposition Disposition: Acute Care Hospital [facility] Discharge Date/Time: 04/24/25 16:02
[2025-04-24 11:56] LABS: Anion Gap 15 (5-15); BUN 22 mg/dL (4-19); BUN/Creat Ratio 19.8 RATIO (10-20); Calcium,Total 9.1 mg/dL (7.6-11.0); Carbon Dioxide 20.1 mmol/L (21.0-32.0); Chloride 106 mmol/L (98-108); Estimated Creatinine Clearance 43.45 ml/min (50-250); Glucose 106 mg/dL (70-99); Potassium 4.5 mmol/L (3.3-5.1)
[2025-04-24 13:40] LABS: Troponin T High Sens 2 HR 7 ng/L (<=14)
--- NOTE | 2025-04-24 15:04 | PCM.HP.STD ---
HPI - General General Date of Admission: 04/24/25 Date of Service: 04/24/25 Chief Complaint: LUE weakness/paresthesias. 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 Patient of note is a left-handed dominant. Workup in the ED included T90.2, heart 99, BP 152/82, respiratory rate 16, no 100% on room air with most recent repeat vitals T97.9, heart rate 89, BP 152/78, respiratory rate 14, 100% room air, CBC with WC 4.9, hemoglobin 11.9, MCV 98.9, platelet 141 without marked shift, BMP with carbon oxide 20.1, BUN/creatinine 22/1.12, GFR 52, glucose 106, troponin initial 8 with repeat delta 7, CT brain with no acute intracranial finding, CTA head and neck with no acute intracranial hemorrhage or infarct, chronic microvascular ischemic changes with mild global parenchymal atrophy, short segment high-grade stenosis of the right intracranial vertebral artery approximately 75%, atherosclerosis of the carotid siphons with less than 50% stenosis with purportedly in radiology read no hemodynamically significant stenosis of the cervical carotid or vertebral arteries otherwise presumed, incidentally noted thyroid nodules largest measuring 2.2 cm, chest x-ray with cardiomegaly with no acute cardiopulmonary findings, EKG with sinus rhythm with no acute evidence of ischemia. NIHSS noted to be 2 for LUE paresthesias and weakness. [facility] Medical History Congestive heart failure (CHF) Sinusitis Allergic rhinitis Pain of right great toe Keloid scar of skin Vertigo Chest pain Wears partial dentures Injury of head and neck Gastric reflux Encounter for transesophageal echo performed as part of open chest procedure History of echocardiogram History of stress test Tremor Retained suture Chest wall tenderness Dyspnea on exertion Fatigue Flu vaccine need Lower extremity edema History of coronary artery disease History of hypertension Left ankle pain Right hip pain Right groin pain Memory changes Left shoulder pain Cervical radiculopathy Cough Health care maintenance Right shoulder pain Therapeutic drug monitoring Osteoporosis Compression fracture of lumbar spine, non-traumatic Dysuria Dysuria Urinary frequency Acute back pain Personal history of colonic polyps GERD (gastroesophageal reflux disease) Hyperglycemia due to type 2 diabetes mellitus Wears glasses Diabetes Arthritis Anemia Non-smoker CPAP (continuous positive airway pressure) dependence Sleep apnea Shortness of breath on exertion Cardiology follow-up encounter Abdominal pain Osteoarthritis Congestive heart failure (CHF) Routine health maintenance Colon cancer screening Foreign body in stomach Seizure disorder Type 2 diabetes mellitus Diabetes mellitus type 2 in nonobese Obesity Urinary frequency Conversion disorder Non-toxic goiter Essential (primary) hypertension RIGHT FOOT HEEL SPUR Atherosclerotic heart disease of [place] coronary artery without angina pectoris Rheumatoid arthritis Diabetes type 2, controlled Hives Seasonal allergies Hyperlipidemia Chronic diastolic CHF (congestive heart failure) Home Medications ?Medication ?Instructions ?Recorded ?Last Taken ?Type multivitamin 1 tab PO DAILY vitamin 05/20/19 04/22/25 History blood-glucose meter (True Metrix #1 ea 02/03/20 Unknown Rx Air Glucose Meter kit) calcium citrate 200 mg PO DAILY supplement 05/21/20 04/22/25 History disability placard #1 ea 06/27/20 Unknown Rx aspirin 81 mg tablet,delayed 81 mg PO DAILY heart 08/13/20 04/22/25 History release (Adult Low Dose Aspirin) blood sugar diagnostic (True #100 ea 06/17/23 Unknown Rx Metrix Glucose Test Strip) lancets 33 gauge #100 ea 06/17/23 Unknown Rx Handicap Placard #1 ea 01/07/24 Unknown Rx gabapentin 300 mg capsule 300 mg PO QHS #30 caps 02/14/24 04/22/25 Rx metoprolol tartrate 25 mg tablet 25 mg PO QDAY heart #90 tabs 04/19/24 04/22/25 Rx hydroxychloroquine 200 mg tablet See Rx Instructions .Route 09/21/24 04/22/25 Rx .COMPLEX immunosuppressant #180 tabs sitagliptin phosphate 100 mg See Rx Instructions .Route 09/21/24 04/22/25 Rx tablet (Januvia) .COMPLEX diabetes #90 tabs divalproex 500 mg tablet,delayed 500 mg .Route .COMPLEX seizures 11/07/24 04/22/25 Rx release (Depakote) #90 tabs pantoprazole 40 mg tablet,delayed 40 mg PO QDAY #90 tabs 01/19/25 04/22/25 Rx release atorvastatin 80 mg tablet 80 mg PO QHS cholesterol #90 tabs 01/23/25 04/22/25 Rx evolocumab 140 mg/mL subcutaneous 140 mg subcut Q2W #2 mL 01/23/25 04/10/25 Rx pen injector (Repatha SureClick) furosemide 40 mg tablet (Lasix) 20 mg PO DAILY 01/23/25 04/22/25 History denosumab 60 mg/mL subcutaneous 60 mg subcut [id number] bone health 01/26/25 03/04/25 Rx syringe (Prolia) #1 mL CPAP - Continuous Positive Airway 02/13/25 Unknown History Pressure([facility] INFORMATIONAL USE ONLY) linaclotide 72 mcg capsule 72 mcg PO QAM #30 caps 02/27/25 04/22/25 Rx (Linzess) levocetirizine 5 mg tablet (Xyzal) 5 mg PO QPM PRN allergy symptoms 03/17/25 04/22/25 Rx #90 tabs fluticasone furoate 27.5 2 spray intranasal QDAY PRN 04/24/25 04/22/25 History mcg/actuation nasal allergy symptoms spray,suspension (Flonase Sensimist) Allergy/AdvReac Type Severity Reaction Status Date / Time prednisone AdvReac Severe Hives Verified 04/24/25 09:55 Family History Grandmother Alcoholism Cancer Arthritis Mother Alcoholism Diabetes blood clots Hypertension Grandfather Heart disease Sister Thyroid disorder Other Breast cancer Cervical cancer Colon cancer Surgical History History of coronary artery bypass graft History of cardiac catheterization History of left heart catheterization (09/20/18) History of coronary artery stent placement (03/22/18) History of carpal tunnel surgery History of section H/O: hysterectomy Social History household members: none housing: apartment Smoking Status: Never smoker second hand exposure: No alcohol intake: current alcohol intake frequency: holidays/special occasions only substance use type: does not use what type of physical activity do you participate in: none ROS ROS Narrative Admission Review of Systems: CONSTITUTIONAL: No weight loss, fever, chills, + weakness or fatigue. HEENT: + Headache. Eyes: No visual loss, blurred vision, double vision or yellow sclerae. Ears, Nose, Throat: No hearing loss, sneezing, congestion, runny nose or sore throat. SKIN: No rash or itching, lesions, wounds. CARDIOVASCULAR: No chest pain, chest pressure or chest discomfort, palpitations, edema, orthopnea, syncopal events. RESPIRATORY: No shortness of breath, cough or sputum, wheezing, hemoptysis. GASTROINTESTINAL: No anorexia, nausea, vomiting or diarrhea, abdominal pain, melena, BRBPR. GENITOURINARY: No dysuria, frequency, urgency or retention. NEUROLOGICAL: + Headache, left-sided paresthesias and left upper extremity weakness, chart reported history of seizure disorder. No dizziness, syncope, paralysis, ataxia, change in bowel or bladder control. MUSCULOSKELETAL: No muscle, back pain, joint pain or stiffness. HEMATOLOGIC: + History of anemia, no specifically reported easy bleeding/bruising. LYMPHATICS: No enlarged nodes. No history of splenectomy. PSYCHIATRIC: No history of depression or anxiety. ENDOCRINOLOGIC: No reports of sweating, cold or heat intolerance. No polyuria or polydipsia. ALLERGIES: + History of allergic rhinitis, hives. Patient's Goals Of Care . What would you like to achieve or improve as a result of your hospital stay?: Improve her LUE deficits. Vital Signs Vital Signs Vital Signs: 04/24/25 09:55 04/24/25 12:27 04/24/25 13:00 Temperature 98.2 F 97.9 F Temperature Source Temporal Pulse Rate 99 72 89 Respiratory Rate 16 16 14 Blood Pressure 152/82 H 134/100 H 152/78 H Blood Pressure Mean 105 111 102 Pulse Ox 100 99 100 Oxygen Delivery Method Room Air Room Air Weight Weight: 168 lb 6.931 oz Body Mass Index (BMI) 30.8 Physical Exam Narrative Physical Examination: General: Awake, alert, oriented x 3 and cooperative, seated upright in the ED bed, fatigued otherwise no acute distress. Skin: Normal color, normal turgor, no icterus, no cyanosis except occasional abrasion. HEENT: AT/NC, EOMI, PERRLA, MMM, no carotid bruits or JVD noted. Lungs: Mildly diminished, greater bases, proper effort, no rales, ronchi or wheezing. Heart: Regular rate and rhythm; no gallop, rub audible. Abdomen: Soft, obese, NTTP, ND, mildly hyperactive BS, no appreciated HSM. Extremities: No cyanosis, no clubbing, no significant distal pitting edema noted. Neurological: Patient awake, alert, oriented as noted, cognitive function intact; pupils equally reactive to light and accommodation, cranial nerves grossly normal, patient moving extremities however left upper extremity notably weak but able to Hold up with no significant drift, unable to perform appropriate finger-nose with the left upper extremity, normal [id number] right side, bilateral [id number]-[id number] appropriate, Babinski equivocal, sensation decreased left upper extremity also into the facial and neck region, moving all 4 extremities, strength accordingly moderately globally decreased Psychiatric: Affect appears fatigued otherwise normal, no acute evidence of depressive or anxiety feelings. Results Lab / Micro Data 04/24/25 11:00 04/24/25 11:00 Labs: Laboratory Results - last 24 hr 04/24/25 11:00: WBC 4.9, RBC 3.66 L, Hgb 11.9 L, Hct 36.2 L, MCV 98.9, MCH 32.5 H, MCHC 32.9, RDW Std Deviation 52.5 H, RDW Coeff of [place] 14.3, Plt Count 141 L, MPV 11.1, Immature Gran % (Auto) 0.200, Neut % (Auto) 74.2 H, Lymph % (Auto) 18.9 L, [place] % (Auto) 5.7, Eos % (Auto) 0.8, Baso % (Auto) 0.2, Absolute Neuts (auto) 3.6, Absolute Lymphs (auto) 0.92, Nucleated RBC % 0, Sodium 141, Potassium 4.5, Chloride 106, Carbon Dioxide 20.1 L, Anion Gap 15, BUN 22 H, Creatinine 1.12, Estim Creat Clear Calc 43.45 L, Est GFR (MDRD) Non-Af 52 L, BUN/Creatinine Ratio 19.8, Glucose 106 H, Calcium 9.1, Troponin T High Sens 8 D 04/24/25 13:00: Troponin T Hi Sens 2 Hr 7 Imaging Radiology Impression Brain CT 04/24/25 10:38 IMPRESSION: No intracranial hemorrhage. No mass effect or midline shift. Reading Location: [facility] Head/Neck CTA 04/24/25 10:38 IMPRESSION: No acute intracranial hemorrhage or territorial infarction. Chronic microvascular ischemic changes with mild global parenchymal atrophy. Short segment high grade stenosis of the right intracranial vertebral artery, approximately 75 percent. Atherosclerosis of the carotid siphons with less than 50 percent stenosis. No hemodynamically significant stenosis of the cervical carotid or vertebral arteries. Incidental thyroid nodules, largest measuring 2.2 cm. Nonemergent thyroid ultrasound is recommended for further characterization. Reading Location: [facility] Chest X-Ray 04/24/25 10:39 IMPRESSION: No acute cardiopulmonary abnormalities. Cardiomegaly. Reading Location: [facility] Assessment & Plan Assessment/Plan (1) CVA (cerebral vascular accident): PLAN: Plan The patient is a 74 y/o F w/ PMHx: RA, CAD s/p PCI and CABG, Obesity, GERD, Allergic rhinitis, Seizure disorder, HTN, HLD, CKD stage III per previous GFR trending, Diabetes mellitus type II with chronic neuropathy, LINA on CPAP nightly, Seizure disorder, HFpEF, Chronic normocytic anemia who presents to the [facility] ED on 04/24/2025 with onset of left upper extremity paresthesias and weakness starting on Thursday noted to have woken Thursday with symptoms significantly worsened 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 #1. Left-sided headache, left upper extremity paresthesias and weakness concerning for CVA with CTA imaging noted short segment high-grade stenosis right intracranial vertebral artery 75%: Will admit to PCU, will obtain MRI Brain, ECHO, PT/OT/Speech/Nutrition evaluation per protocol. Will allow permissive HTN, maintain on asa, add Plavix pending neurology evaluation, continue high-dose home statin w/ AM FLP, fall precautions. Mag, TSH, FLP, HgbA1c requested. Maintain on fall and aspiration precautions. Will request ongoing neurology consultation. #2. Incidentally noted thyroid nodules: CTA head and neck with incidentally noted thyroid nodules with the largest measuring 2.2 cm, TSH/free T4 pending, will need follow-up nonemergent outpatient ultrasound. #3. Thrombocytopenia, possibly reactive: Admission platelets 141, previous to this 04/08/2025 149 otherwise prior normal, cautiously using antiplatelet therapy as noted, alter per neurology discretion, continue to trend CBC. #4. Diabetes mellitus type II with chronic neuropathy: Hold oral home regimen, once cleared maintain on ADA diet, accu checks w/ ISS, hemoglobin A1c pending per #1, nutrition consulted as noted per #1, continue home gabapentin regimen with hold for sedation as needed. #5. HFpEF: Most recent echocardiogram noted 11/16/2023 with EF 65% with inability to assess diastolic dysfunction at that time with no reported marked valvular disease, repeat echocardiogram requested as noted given #1, will continue aspirin, temporally adding Plavix as noted in the interim, continue statin, holding hypertensive regimen permissive hypertension with as needed agents per stroke protocol, add back once appropriate. #6. CAD: Status post PCI and CABG x 4, will continue aspirin, temporarily adding Plavix pending neurology evaluation as noted, continue high-dose statin, temporarily holding hypertensive regimen given acute presentation as noted #1 for permissive hypertension, add back once appropriate. #7. Hypertension: Will hold hypertensive regimen given presentation as noted, will have as needed agents per stroke protocol, add back once clinically appropriate. #8. Hyperlipidemia: Continue home statin regimen. AM FLP. #9. Chronic Kidney Disease Stage III, unclear subtype or GFR trend: Admission BUN/Cr 22/1.12, GFR 52, baseline renal function primarily 0.8-1.3, most recently 04/08/2025 creatinine 1.14,, repeat BMP in AM. #10. Chronic normocytic anemia: Admission hemoglobin 11.9, MCV 90.9, baseline hemoglobin primarily 11-12, stable, continue to trend. #11. Allergic rhinitis: From review of records patient only uses levocetirizine and Flonase as needed, will monitor for symptoms. #12. Seizure disorder: Will continue patient home Keppra regimen. #13. Obesity: Weight loss and lifestyle changes encouraged. #14. GERD: Will continue patient on PPI. #15. Rheumatoid arthritis: Will continue patient on hydroxychloroquine regimen. #16. LINA: CPAP nightly. #16. DVT prophylaxis: Lovenox. #17. CODE status: Discussed CODE status at length including difference between FULL code, DNR-CCA and DNR-CC status. Following discussions about the differences in these status, requested Full Code status. Charges/Coding Visit Charges Inpatient E&M: 74511 Init Hosp L3
[2025-04-24 16:04] LABS: Magnesium 1.9 mg/dL (1.5-2.2)
--- NOTE | 2025-04-24 16:11 | MRI_ITS ---
PROCEDURE: MRI BRAIN WITHOUT CONTRAST 04/24/2025 REASON FOR EXAM: CVA TECHNIQUE: Procedure Code: MRIBR Modality: MR Procedure: BRAIN WITHOUT CONTRAST Multiplanar and multisequential MRI of the brain was performed without contrast. COMPARISON: CT head/angiography earlier same day 04/24/2025. FINDINGS: No regions of abnormal restricted diffusion to indicate recent infarct. No evidence for intracranial hemorrhage, extra-axial collection, mass-effect or other acute abnormality. Mild age-appropriate generalized brain parenchymal volume loss, and chronic microangiopathic changes in the supratentorial white matter. Preserved major intracranial vascular flow voids. Grossly unremarkable orbits. Well-aerated paranasal sinuses. No mastoid effusion. MRI/Brain without Contrast IMPRESSION: No acute intracranial abnormality; No acute infarct. Mild parenchymal volume loss and chronic microangiopathic changes. Reading Location: [id number]
--- NOTE | 2025-04-24 16:11 | ECHOD_ITS ---
Reason For Study Reason For Study: TIA/CVA Procedure This was a 2D Doppler, Color Flow transthoracic echocardiogram. The patient is in sinus rhythm. Myocardial strain analysis was performed in this exam to aid in the assessment of cardiac function. Exam performed portable in patient room. Left Ventricle Normal LV size. Moderate concentric left ventricular hypertrophy. The global longitudinal strain = -16.8% (borderline). Valsalva LV gradient 30???50 mmHg. The estimated ejection fraction is 65-70 %. Resting LV gradient 11 mmHg. Hyperdynamic LV contraction generating a 30-50 mm gradient with Valsalva. Does not appear to be true hypertrophic cardiomyopathy more so likely related to hyperdynamic LV function. No regional wall motion abnormalities noted. Right Ventricle Normal RV size. Normal systolic function. Atria The left and right atria are normal. Mitral Valve Moderate mitral annular calcification. Mild diffuse mitral valve thickening. There is no mitral valve stenosis. Trivial mitral valve insufficiency. Tricuspid Valve Normal tricuspid valve. Mild-Moderate (1-2+) tricuspid valve insufficiency. Pulmonary artery systolic pressure is 22 mmHg. Normal pulmonary artery pressure. Aortic Valve Trisinus/trileaflet aortic valve. There is no aortic valve stenosis. Trivial aortic valve insufficiency. Pulmonic Valve Normal pulmonic valve. Trivial pulmonic valve insufficiency. Great Vessels Ascending aorta normal size measured at 2.9 cm. Normal sized IVC that collapses with respiration/sniff. Pericardium/Pleural No pericardial effusion. MMode/2D Measurements & Calculations LVIDd: 3.7 cm IVSd: 1.4 cm LVOT diam: 2.0 cm LVIDs: 2.2 cm LVPWd: 1.2 cm LVOT area: 3.1 cm2 RVDd: 3.1 cm FS: 41.5 % Ao root diam: 2.9 cm LAV(MOD-bp): 49.7 ml LVAd ap4: 17.2 cm2 LAV(MOD-bp) Indexed: 27.9 ml/m2 LVLd ap4: 6.7 cm LAV(MOD-sp2): 53.2 ml EDV(MOD-sp4): 36.9 ml LAV(MOD-sp4): 44.7 ml EDV(sp4-el): 37.7 ml LVAs ap4: 8.6 cm2 LVLs ap4: 5.5 cm ESV(MOD-sp4): 11.7 ml ESV(sp4-el): 11.5 ml EF(MOD-sp4): 68.4 % EF(sp4-el): 69.3 % LVAd ap2: 16.1 cm2 SV(MOD-sp4): 25.2 ml LVLd ap2: 6.8 cm EDV(MOD-bp): 34.1 ml SI(MOD-sp4): 14.2 ml/m2 EDV(MOD-sp2): 31.5 ml ESV(MOD-bp): 11.3 ml EDV(sp2-el): 32.2 ml EF(MOD-bp): 66.8 % LVAs ap2: 8.3 cm2 LVLs ap2: 5.4 cm ESV(MOD-sp2): 10.9 ml ESV(sp2-el): 10.9 ml EF(MOD-sp2): 65.4 % SV(MOD-sp2): 20.6 ml SV(sp4-el): 26.1 ml Ao sinus diam: 3.2 cm SI(MOD-sp2): 11.6 ml/m2 Ao ST Junction: 2.3 cm LA A4 area: 17.2 cm2 LA dimension(2D): 3.4 cm RA A4 area: 9.4 cm2 TAPSE: 1.7 cm Time Measurements MV dec time: 0.13 sec Doppler Measurements & Calculations MV E max raul: 88.9 cm/sec Lat Peak E' Raul: 8.9 cm/sec Med Peak E' Raul: 7.3 cm/sec MV A max raul: 130.4 cm/sec E/E' lat: 10.0 E/E' med: 12.2 MV E/A: 0.68 Ao V2 max: 127.3 cm/sec LV V1 max: 92.8 cm/sec MV dec slope: 662.4 cm/sec2 Ao max P.5 mmHg LV V1 max P.4 mmHg Ao V2 mean: 95.5 cm/sec LV V1 mean P.1 mmHg Ao mean P.9 mmHg LV V1 mean: 68.3 cm/sec Ao V2 VTI: 28.1 cm LV V1 VTI: 21.1 cm AV (velocity ratio): 0.75 JOB(I,D): 2.3 cm2 JOB(V,D): 2.3 cm2 SV(LVOT): 65.1 ml PA V2 max: 98.5 cm/sec TR max raul: 216.7 cm/sec TR max P.8 mmHg ECHO/Echo Complete Interpretation Summary The estimated ejection fraction is 65-70 %. Moderate concentric left ventricular hypertrophy. Hyperdynamic LV contraction generating a 30-50 mm gradient with Valsalva. Does not appear to be true hypertrophic cardiomyopathy more so likely related to hyperdynamic LV function. Mild-Moderate (1-2+) tricuspid valve insufficiency. Normal sized IVC that collapses with respiration/sniff. Compared to previous study 11/16/2023 no significant changes appreciated. Overal l normal ejection fraction with mild to moderate valvular heart disease. Current echocardiogram does show a elevated Va lsalva gradient however likely related to hyperdynamic LV function. Ordering Physician: Pauline Rodriguez Referring Physician: Kannan Garcia Performed By: Misti Godinez RDCS
[2025-04-24 16:55] LABS: Troponin T High Sens 4 HR 8 ng/L (<=14)
[2025-04-24] MEDS: Divalproex (ER) 500 MG Tablet 1000 MG PO (21:24)
[2025-04-24] MEDS: MELATONIN 3 MG TABLET PO (21:29)
[2025-04-24] MEDS: 0.9% Saline Lock 10 ML Syringe IV ×2 (21:29→23:25)
[2025-04-25] VITALS (7 sets, daily range): BP systolic 138–153; BP diastolic 63–88; PULSE 76–90; RESP 15–20; TEMP 36.4–37.2; O2SAT 97–99; BMI 29.4; BMI 30.9
[2025-04-25 07:04] LABS: Hematocrit 32.2 % (37-47); Hemoglobin 10.7 g/dL (12.0-15.0); Immature Granulocytes Count 0.010 X10^3/uL (0.0-0.0); Mean Corp Hgb Conc 33.2 g/dL (32-36); Mean Corpuscular Volume 95.0 fL (81-99); Mean Platelet Vol. 11.6 fl (6.2-12.0); NRBC Flagged by Analyzer 0 % (0-5); Platelet Count 154 K/mm3 (150-450); RBC Distribution Width CV 14.4 % (11.6-14.6); RBC Distribution Width SD 49.6 fl (35.1-43.9); Red Blood Count 3.39 M/mm3 (4.2-5.4); White Blood Count 4.6 K/mm3 (4.4-11.0)
[2025-04-25 07:40] LABS: AST(SGOT) 20 U/L (<=31); Alanine Aminotransfer ALT/SGPT 16 U/L (<=34); Albumin, Serum 3.5 g/dL (3.4-4.8); Alkaline Phosphatase 60 U/L (35-104); Anion Gap 9 (7-18); BUN 22 mg/dL (4-19); BUN/Creat Ratio 18.0 RATIO (10-20); Calcium,Total 8.8 mg/dL (7.6-11.0); Carbon Dioxide 24.1 mmol/L (20.0-29.0); Chloride 108 mmol/L (96-106); Cholesterol 118 mg/dL (<=200); Estimated Creatinine Clearance 39.97 ml/min (50-250); Globulin 2.8 g/dL (2.2-4.2); Glucose 125 mg/dL (70-99); Low Density Lipoprotein Calc. 51 mg/dL; Potassium 4.4 mmol/L (3.5-5.1); Triglycerides 70 mg/dL; Very Low Density Lipoprotein 14 mg/dL (5-40); cholesterol:hdl ratio screen 2.23
[2025-04-25] MEDS: Aspirin E.C. 81 MG Tablet PO (09:59)
[2025-04-25] MEDS: Divalproex (ER) 500 MG Tablet PO (09:59)
--- NOTE | 2025-04-25 13:30 | CASEMGMT ---
KARINA BRYANT Assessment Face to Face with patient for initial transition planning/care coordination assessment. KARINA BRYANT introduced self and role at [facility], pt voices understanding. Pt is A&Ox4 and is resting comfortably in the chair and is calm. Pt's mother and friend are at the bedside and pt wishes for them to stay during the assessment. Care providers, pharmacy, and demographics verified. Admitting dx: CVA LACE Strata: 3 PCP: Jose Specialists: Kashif ZUÑIGA (RA), Friend (GI), [facility], Sara (Neuro) Preferred Pharmacy: [facility] Insurance: Spyra Prescription Benefit: Yes LNOK: Gricel (Mom), Aleksandr (Son) Living Arrangements: Pt lives with her son in a 2 story home with 10 steps inside and a flat entrance into the home ADLs/IADLs: Indep at baseline. However, pt states that she is weak currently and does not feel safe returning home Transportation: Public transportation, friends DME: CPAP @ [facility] with no additional oxygen. Pt has a hx of DM but does not have the equipment to check her BS levels at home. CM to follow. Pt was encouraged to buy a scale regarding her CHF. Pt does not have a FWW. HHC/SNF: Reports hx at [facility] TCU or [facility]. Reports hx with [facility] HH. Report hx with [facility] for OP therapy Pt?s goal: Rehab Plan: TBD. See PT/OT and ST notes. At this time, the pt states that she prefers to get additional rehab to help build her strength back up before returning home. ST is also recommending additional therapy. Pt states that her left side feels too weak to return home. At this time, Neuro consult pending. Pt states that she would prefer a skilled stay here at [facility] over a SNF in the community. CM to follow. Pt denies further questions or concerns at this time. Report given to PCU Care Management team. Raza Pisano RN, CM
--- NOTE | 2025-04-25 13:33 | NEURO.CONS ---
Assessment and Plan: Neuro Assessment/Plan LACY ALVARADO is a 74 F with a past medical history of epilepsy, occipital neuralgia, being evaluated by Teleneurology for L sided numbness and tingling. Symptoms consistent with complex migraine. Exam with giveway weakness on the L and some parasthesias. Imaging in benign. Taken together, constellationo f symptoms and clinical progression consistent with the complex migraine. Diagnosis: complex migraine Plan: - recommend migraine cocktail: toradol 30mg IV, benadryl 25mg PO, [id number] and 2 gram IV - discharge with a Medrol dosepak I personally attended this patient and spent a total time of 45minutes evaluating this patient including clinical assessment, review of chart, medical history imaging, and determining appropriate treatment and workup. 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 Patient of note is a left-handed dominant. NIHSS noted to be 2 for LUE paresthesias and weakness. Neurologic History Pt still has the numbness and tingling in fingers and arm on the L. Symptoms started Thursday and stayed present through Thursday. On Thursday she noted swelling on both hands. The headache started on Thursday. Normally does not get headaches. WALL located on the L side of the head and down to the L neck. States she does not get headaches but gets a pain behind the head - will happen a couple times of a year and likely her occipital neuralgia. The curent headache is a sharp stabbing feeling. Endorses sensitivity to light, last night had nausea. Thursday could not raise her arm because the tingling on her L arm was so severe and was having difficulty standing on the L leg with tingling on the L leg. She also had a severe headache - worse of her life. Currently feels better and swelling on the R hand is improved. WALL is currently improved, currently 4/10, was 10/10 on Thursday. Patient has known epilepsy and follows with Dr. Ruiz: The patient has epilepsy that began in childhood after being struck on the head by a falling windowpane. She has complex partial seizures and generalized seizures with focal onset. Her last seizure was in August 2022. She is taking divalproex DR. She previously had medication noncompliance however her last valproic acid level (May 2024) was in the therapeutic range. She has a mildly elevated ammonia. She is not experiencing gait imbalance or tremor/asterixis. Sleep deprivation due to her work schedule, and emotional stress have been triggers for her seizures. She is now retired from work. She reported having memory difficulty since her last seizure in August 2022; this gradually improved. She has remained independent in her daily activities. - Divalproex DR 500mg 1 tablet qAM and 2 tablets qPM will be continued. She has had brief episodes of left occipital neuralgia; these episodes occur infrequently and last no more than a few minutes at a time. She had 1 episode in about the past month. - No therapy was felt to be warranted at that time. Her B12 level was near the low end of the normal range. She has fatigue. B12 injections have been of benefit for her fatigue she had iron deficiency anemia and for period of time took an oral iron supplement. She no longer takes an iron supplement. Her last serum iron level (September 2023) was normal. She continues to have a mild anemia. - Monthly B12 1000 mcg IM injections will be continued for her fatigue. Exam: -? General: Laying comfortably in bed; in no acute distress. -? HENT: Normal oropharynx and mucosa. Normal external appearance of ears and nose. Exophthalmos. -? Neck: Supple, no pain or tenderness -? CV:? No peripheral edema. -? Pulmonary:? Normal respiratory effort. -? Ext: No cyanosis, edema, or deformity -? Skin: No rash. Normal palpation of skin.? -? Musculoskeletal: full range of motion; no joint tenderness. Normal digits and nails by inspection. No clubbing. -? NEURO: -? Mental Status: The patient was alert and oriented to time, place, and person. Normal recent/remote memory, and general fund of knowledge. Concentration is poor -? Language: speech is clear? Naming, repetition, fluency, and comprehension intact. -? Cranial Nerves: PERRL 4mm/brisk. EOMI, visual wallace full, no facial asymmetry, facial sensation diminished on the LV1-3, hearing intact, tongue midline, no evidence of atrophy or fibrillations. -? Motor: embellished drift on the LUE, the LLE with slight drift but comes back to level it was originally at -? 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 Tone: is normal and bulk is normal -? Sensation- LT diminished on the LUE and LLE -? Coordination: No dysmetria on [id number], finger follow finger or [id number]. slower on the LUE and LLE but not ataxia -? Gait- deferred [facility] Medical History Congestive heart failure (CHF) Sinusitis Allergic rhinitis Pain of right great toe Keloid scar of skin Vertigo Chest pain Wears partial dentures Injury of head and neck Gastric reflux Encounter for transesophageal echo performed as part of open chest procedure History of echocardiogram History of stress test Tremor Retained suture Chest wall tenderness Dyspnea on exertion Fatigue Flu vaccine need Lower extremity edema History of coronary artery disease History of hypertension Left ankle pain Right hip pain Right groin pain Memory changes Left shoulder pain Cervical radiculopathy Cough Health care maintenance Right shoulder pain Therapeutic drug monitoring Osteoporosis Compression fracture of lumbar spine, non-traumatic Dysuria Dysuria Urinary frequency Acute back pain Personal history of colonic polyps GERD (gastroesophageal reflux disease) Hyperglycemia due to type 2 diabetes mellitus Wears glasses Diabetes Arthritis Anemia Non-smoker CPAP (continuous positive airway pressure) dependence Sleep apnea Shortness of breath on exertion Cardiology follow-up encounter Abdominal pain Osteoarthritis Congestive heart failure (CHF) Routine health maintenance Colon cancer screening Foreign body in stomach Seizure disorder Type 2 diabetes mellitus Diabetes mellitus type 2 in nonobese Obesity Urinary frequency Conversion disorder Non-toxic goiter Essential (primary) hypertension RIGHT FOOT HEEL SPUR Atherosclerotic heart disease of [place] coronary artery without angina pectoris Rheumatoid arthritis Diabetes type 2, controlled Hives Seasonal allergies Hyperlipidemia Chronic diastolic CHF (congestive heart failure) Home Medications ?Medication ?Instructions ?Recorded ?Last Taken ?Type multivitamin 1 tab PO DAILY vitamin 05/20/19 04/22/25 History blood-glucose meter (True Metrix #1 ea 02/03/20 Unknown Rx Air Glucose Meter kit) calcium citrate 200 mg PO DAILY supplement 05/21/20 04/22/25 History disability placard #1 ea 06/27/20 Unknown Rx aspirin 81 mg tablet,delayed 81 mg PO DAILY heart 08/13/20 04/22/25 History release (Adult Low Dose Aspirin) blood sugar diagnostic (True #100 ea 06/17/23 Unknown Rx Metrix Glucose Test Strip) lancets 33 gauge #100 ea 06/17/23 Unknown Rx Handicap Placard #1 ea 01/07/24 Unknown Rx gabapentin 300 mg capsule 300 mg PO QHS #30 caps 02/14/24 04/22/25 Rx metoprolol tartrate 25 mg tablet 25 mg PO QDAY heart #90 tabs 04/19/24 04/22/25 Rx hydroxychloroquine 200 mg tablet See Rx Instructions .Route 09/21/24 04/22/25 Rx .COMPLEX immunosuppressant #180 tabs sitagliptin phosphate 100 mg See Rx Instructions .Route 09/21/24 04/22/25 Rx tablet (Januvia) .COMPLEX diabetes #90 tabs divalproex 500 mg tablet,delayed 500 mg .Route .COMPLEX seizures 11/07/24 04/22/25 Rx release (Depakote) #90 tabs pantoprazole 40 mg tablet,delayed 40 mg PO QDAY #90 tabs 01/19/25 04/22/25 Rx release atorvastatin 80 mg tablet 80 mg PO QHS cholesterol #90 tabs 01/23/25 04/22/25 Rx evolocumab 140 mg/mL subcutaneous 140 mg subcut Q2W #2 mL 01/23/25 04/10/25 Rx pen injector (Repatha SureClick) furosemide 40 mg tablet (Lasix) 20 mg PO DAILY 01/23/25 04/22/25 History denosumab 60 mg/mL subcutaneous 60 mg subcut [id number] bone health 01/26/25 03/04/25 Rx syringe (Prolia) #1 mL CPAP - Continuous Positive Airway 02/13/25 Unknown History Pressure([facility] INFORMATIONAL USE ONLY) linaclotide 72 mcg capsule 72 mcg PO QAM #30 caps 02/27/25 04/22/25 Rx (Linzess) levocetirizine 5 mg tablet (Xyzal) 5 mg PO QPM PRN allergy symptoms 03/17/25 04/22/25 Rx #90 tabs fluticasone furoate 27.5 2 spray intranasal QDAY PRN 04/24/25 04/22/25 History mcg/actuation nasal allergy symptoms spray,suspension (Flonase Sensimist) Allergy/AdvReac Type Severity Reaction Status Date / Time prednisone AdvReac Severe Hives Verified 04/24/25 09:55 Family History Grandmother Alcoholism Cancer Arthritis Mother Alcoholism Diabetes blood clots Hypertension Grandfather Heart disease Sister Thyroid disorder Other Breast cancer Cervical cancer Colon cancer Surgical History History of coronary artery bypass graft History of cardiac catheterization History of left heart catheterization (09/20/18) History of coronary artery stent placement (03/22/18) History of carpal tunnel surgery History of section H/O: hysterectomy Social History household members: none housing: apartment Smoking Status: Never smoker second hand exposure: No alcohol intake: current alcohol intake frequency: holidays/special occasions only substance use type: does not use what type of physical activity do you participate in: none Vital Signs Vital Signs Vital Signs: 04/24/25 15:00 04/24/25 16:36 04/24/25 16:59 Temperature 98 F Temperature Source Oral Pulse Rate 84 82 Pulse Strength Respiratory Rate 16 14 Respiratory Effort Normal Non-Labored Respiratory Depth Normal Respiratory Pattern Normal Blood Pressure 158/84 H 147/71 H Blood Pressure Mean 108 96 Blood Pressure Source Monitor Blood Pressure Position Semi-Fowlers Blood Pressure Location Right Arm Pulse Ox 100 100 Oxygen Delivery Method Room Air Room Air Room Air 04/24/25 19:00 04/24/25 19:19 04/24/25 19:23 Temperature 97.9 F Temperature Source Oral Pulse Rate 94 87 Pulse Strength Respiratory Rate 14 Respiratory Effort Normal Non-Labored Respiratory Depth Normal Respiratory Pattern Normal Blood Pressure 140/70 H Blood Pressure Mean 93 Blood Pressure Source Monitor Blood Pressure Position Semi-Fowlers Blood Pressure Location Left Arm Pulse Ox 97 Oxygen Delivery Method Room Air Room Air 04/24/25 23:16 04/25/25 03:00 04/25/25 03:15 Temperature 98.5 F 98.9 F Temperature Source Oral Oral Pulse Rate 89 82 80 Pulse Strength Respiratory Rate 16 15 Respiratory Effort Respiratory Depth Respiratory Pattern Blood Pressure 127/62 H 138/72 H Blood Pressure Mean 83 94 Blood Pressure Source Monitor Monitor Blood Pressure Position Semi-Fowlers Semi-Fowlers Blood Pressure Location Right Arm Right Arm Pulse Ox 96 97 Oxygen Delivery Method Room Air Room Air 04/25/25 03:20 04/25/25 06:24 04/25/25 09:45 Temperature 98.5 F Temperature Source Oral Pulse Rate 90 Pulse Strength Respiratory Rate 16 Respiratory Effort Normal Non-Labored Respiratory Depth Normal Respiratory Pattern Normal Blood Pressure 153/63 H Blood Pressure Mean 93 Blood Pressure Source Monitor Blood Pressure Position Semi-Fowlers Blood Pressure Location Right Arm Pulse Ox 97 Oxygen Delivery Method Room Air Room Air Room Air 04/25/25 09:50 04/25/25 09:51 04/25/25 10:00 Temperature 97.7 F L Temperature Source Oral Pulse Rate 89 Pulse Strength Normal (2+) Respiratory Rate 16 Respiratory Effort Respiratory Depth Respiratory Pattern Blood Pressure 148/82 H Blood Pressure Mean 104 Blood Pressure Source Monitor Blood Pressure Position Semi-Fowlers Blood Pressure Location Left Arm Pulse Ox 99 Oxygen Delivery Method Room Air Room Air Weight Weight: 76.7 kg Body Mass Index (BMI) 30.9 EEG Results Procedure Details EEG Procedure Details: LACY ALVARADO is a 74 year old F with a past medical history of , who presents for evaluation of Electroencephalogram on DATE at TIME Lab / Micro Data 04/25/25 06:37 04/25/25 06:37 Labs: Laboratory Results - last 24 hr 04/24/25 13:00: Magnesium 1.9, Troponin T Hi Sens 2 Hr 7 04/24/25 15:03: POC Glucose 75 04/24/25 16:00: Troponin T Hi Sens 4Hr 8 04/24/25 18:04: POC Glucose 78 04/24/25 21:22: POC Glucose 145 H 04/25/25 06:28: POC Glucose 131 H 04/25/25 06:37: WBC 4.6, RBC 3.39 L, Hgb 10.7 L, Hct 32.2 L, MCV 95.0, MCH 31.6, MCHC 33.2, RDW Std Deviation 49.6 H, RDW Coeff of [place] 14.4, Plt Count 154, MPV 11.6, Immature Gran % (Auto) 0.200, Neut % (Auto) 47.6, Lymph % (Auto) 40.0, [place] % (Auto) 9.6, Eos % (Auto) 2.2, Baso % (Auto) 0.4, Absolute Neuts (auto) 2.2, Absolute Lymphs (auto) 1.83, Nucleated RBC % 0, Sodium 142, Potassium 4.4, Chloride 108 H, Carbon Dioxide 24.1, Anion Gap 9, BUN 22 H, Creatinine 1.22 H, Estim Creat Clear Calc 39.97 L, Est GFR (MDRD) Non-Af 47 L, BUN/Creatinine Ratio 18.0, Glucose 125 H, Hemoglobin A1c 6.5 H, Calcium 8.8, Total Bilirubin 0.32, AST 20, ALT 16, Alkaline Phosphatase 60, Total Protein 6.2, Albumin 3.5, Globulin 2.8, Albumin/Globulin Ratio 1.3, Triglycerides 70, Cholesterol 118, LDL Cholesterol, Calc 51, VLDL Cholesterol 14, HDL Cholesterol 53, Cholesterol/HDL Ratio 2.23, TSH 3.330, Free T4 1.00 04/25/25 11:35: POC Glucose 118 H Imaging Radiology Impression Brain MRI 04/24/25 16:11 IMPRESSION: No acute intracranial abnormality; No acute infarct. Mild parenchymal volume loss and chronic microangiopathic changes. Reading Location: [id number] Echocardiogram 04/24/25 16:11 Interpretation Summary The estimated ejection fraction is 65-70 %. Moderate concentric left ventricular hypertrophy. Hyperdynamic LV contraction generating a 30-50 mm gradient with Valsalva. Does not appear to be true hypertrophic cardiomyopathy more so likely related to hyperdynamic LV function. Mild-Moderate (1-2+) tricuspid valve insufficiency. Normal sized IVC that collapses with respiration/sniff. Compared to previous study 11/16/2023 no significant changes appreciated. Overall normal ejection fraction with mild to moderate valvular heart disease. Current echocardiogram does show a elevated Valsalva gradient however likely related to hyperdynamic LV function. Ordering Physician: Pauline Rodriguez Referring Physician: Kannan Garcia Performed By: Misti Godinez RDCS Active Medications Active Medications Active Medications: Current Medications Generic Name Dose Route Start Last Admin Trade Name Freq PRN Reason Stop Dose Admin Acetaminophen 650 mg 04/24/25 16:11 04/24/25 21:29 Acetaminophen 325 Mg Tablet PO 650 mg Q4H PRN PRN Administration Fever, pain 1-02/10 Al Hydrox/Mg Hydrox/Simethicone 30 ml 04/25/25 10:00 Mag /Aluminum/Simeth Wch Udc 30 Ml Oral.Susp PO Q6H PRN PRN Gastric Burning Albuterol Sulfate 2.5 mg 04/24/25 16:11 Albuterol 2.5 Mg/3 Ml Vial.Neb. INHALATION Q2H PRN PRN Dyspnea, wheezing Aspirin 81 mg 04/25/25 08:00 04/25/25 09:59 Aspirin E.C. 81 Mg Tablet PO 81 mg BREAKFAST KIT Administration Atorvastatin Calcium 80 mg 04/24/25 22:00 04/24/25 21:24 Atorvastatin Calcium 80 Mg Tablet PO 80 mg QHS KIT Administration Clopidogrel Bisulfate 75 mg 04/25/25 10:00 04/25/25 09:59 Clopidogrel Bisulfate 75 Mg Tablet PO 75 mg DAILY KIT Administration Divalproex Sodium 500 mg 04/25/25 10:00 04/25/25 09:59 Divalproex (Er) 500 Mg Tablet PO 500 mg QAM KIT Administration Divalproex Sodium 1,000 mg 04/24/25 21:00 04/24/25 21:24 Divalproex (Er) 500 Mg Tablet PO 1,000 mg QPM KIT Administration Enoxaparin Sodium 40 mg 04/25/25 10:00 04/25/25 10:00 Enoxaparin 40 Mg/0.4 Ml Syringe SC 40 mg DAILY KIT Administration Gabapentin 300 mg 04/24/25 22:00 04/24/25 21:29 Gabapentin 300 Mg Capsule PO 300 mg QHS KIT Administration Glucagon 1 mg 04/24/25 16:11 Glucagon 1 Mg/Ml Syringe IM X1 PRN Hypoglycemia Protocol Guaifenesin 20 ml 04/24/25 16:11 Guaifenesin 10 Ml Udc (200mg/10ml) PO Q4H PRN PRN COUGH Hydralazine HCl 5 mg 04/24/25 16:11 Hydralazine 20 Mg/Ml Vial IV 04/25/25 16:11 Q30M PRN maintain BP parameters with HR <60 Hydroxychloroquine Sulfate 200 mg 04/24/25 17:00 04/25/25 09:59 Hydroxychloroquine 200 Mg Tablet PO 200 mg BIDCM KIT Administration Dextrose 250 mls @ 0 mls/hr 04/24/25 16:11 Dextrose 10%-Water IV .Q0M PRN HYPOGLYCEMIA Protocol As Directed Sodium Chloride 250 mls @ 15 mls/hr 04/24/25 16:13 IV .[id number] PRN Additional IVPB Infusion Sodium Chloride 250 mls @ 15 mls/hr 04/24/25 16:13 IV .[id number] PRN Saline Flush Insulin Human Lispro 0 unit 04/24/25 16:11 04/25/25 11:37 Insulin Lispro 100 Unit/Ml Insuln.Pen SC Not Given ACHS KIT Protocol Labetalol HCl 10 - 20 mg 04/24/25 16:11 Labetalol 20 Mg/4 Ml Vial IV 04/25/25 16:11 Q10M PRN PRN maintain BP parameters with HR >/=60 Melatonin 3 mg 04/24/25 16:11 04/24/25 21:29 Melatonin 3 Mg Tablet PO 3 mg QHS PRN PRN Administration INSOMNIA Non-Formulary Medication 72 mcg 04/25/25 10:00 Linaclotide [Linzess] PO QAM [facility] Ondansetron HCl 4 mg 04/24/25 16:11 04/24/25 23:25 Ondansetron 4 Mg/2 Ml Vial IV 4 mg Q8H PRN PRN Administration NAUSEA/VOMITING Pantoprazole Sodium 40 mg 04/24/25 16:11 04/25/25 09:59 Pantoprazole Sodium 40 Mg Tablet PO 40 mg DAILY KIT Administration Senna/Docusate Sodium 2 tablet 04/24/25 16:11 Senna/Docusate Sodium 1 Tablet PO BID PRN PRN Constipation Sodium Chloride 10 - 40 ml 04/24/25 16:13 04/24/25 23:25 0.9% Saline Lock 10 Ml Syringe IV 10 ml UD PRN Administration SALINE FLUSH NIHSS NIHSS Nursing Documentation NIHSS Nursing Documentation: NIHSS: Ischemic Stroke/TIA Start: 04/24/25 16:11 Text: For PCU Patients: NIH and Neuro Check every 4 Status: Active hours, PRN and with change in RN caregiver. Freq: [id number] Protocol: Activity Type Activity Date Activity User E-sign Co-sign Detail Recorded Client Recorded Date Recorded By Document 04/25/25 09:51 [id number] 04/25/25 09:57 04/25/25 09:51 NIH Stroke Scale [NIHSS] A score of 0 is normal or asymptomatic . Total possible score is 42. Inpatient: RN or Physician to activate a stroke alert for onset of new stroke symptoms or with NIHSS increase >/= 3 points. Following change in neurological status, NIHSS will be performed per physician order or more frequently PRN. -1a. Level of Consciousness 0 - Alert; keenly responsive -1b. LOC Questions 0 - Answers BOTH questions correctly -1c. LOC Commands 0 - Performs BOTH tasks correctly -2. Best Gaze 0 - Normal -3. Visual 0 - No visual loss -4. Facial Palsy 0 - Normal symmetrical movements -5a. Left Arm 1 - Drift; arm drifts downward but doesn?t hit the bed -5b. Right Arm 0 - No drift; arm holds 90 ( or 45) degrees for full 10 seconds -6a. Left Leg 0 - No drift; leg holds 30- degree position for full 5 seconds -6b. Right Leg 0 - No drift; leg holds 30- degree position for full 5 seconds -7. Limb Ataxia 1 - Present in 1 limb -8. Sensory 1 - Mild-to- moderate sensory loss; -9. Best Language 0 - No aphasia; normal -10. Dysarthria 0 - Normal -11. Extinction and Inattention 0 - No abnormality -Total 3 Query Text:A score of 0 is normal or asymptomatic. Total possible score is 42 . ED: Notify Physician for NIHSS increase by > / = 3 points. Inpatient: RN or Physician to activate a stroke alert for NIHSS increase of > / = 3 points. Coma Scale [Assess] -Eye Opening Spontaneous -Motor Obeys Commands -Verbal Oriented [Total] -Coma Scale Total 15
--- NOTE | 2025-04-25 14:07 | NURSING ---
NIHSS completed late as tele-neurology MD rounding on patient. NIHSS will be completed when MD done.
--- NOTE | 2025-04-25 14:46 | MRI_ITS ---
PROCEDURE: SPINE CERVICAL W/WO CONTRAST 04/25/2025 REASON FOR EXAM: WEAKNESS/PARASTESIAS TECHNIQUE: Procedure Code: [id number] Modality: MR Procedure: SPINE CERVICAL W/WO CONTRAST Multiplanar and multisequence images were obtained with intravenous gadolinium- based contrast administration. CONTRAST: Clariscan VOLUME: 15 mL COMPARISON: None. FINDINGS: Vertebrae: Preserved in height and signal. Alignment: Normal alignment. Spinal Cord: Unremarkable. No abnormal enhancement. C2-3: Disc osteophyte complex measures 2 mm. No significant foraminal or canal stenosis. Mild facet joint arthropathy. C3-4: Disc osteophyte complex. Facet joint arthropathy. Severe left and moderate right foramina stenosis. Moderate canal stenosis. C4-5: Disc osteophyte complex. Facet joint arthropathy. Mild bilateral foramina stenosis. Moderate canal stenosis. C5-6: Disc osteophyte complex. Facet joint arthropathy and ligamentum flavum hypertrophy. Severe bilateral foramina stenosis. Moderate canal stenosis. C6-7: Disc osteophyte complex. Facet joint arthropathy and uncovertebral hypertrophy. Severe bilateral foramina stenosis. Mild canal stenosis. C7-T1: Unremarkable. Postcontrast images: Unremarkable without abnormal enhancement. MRI/Spine Cervical W/WO Contrast IMPRESSION: No acute abnormality or abnormal enhancement. Multilevel degenerate changes predominantly for moderate canal stenosis at C4-C 5 and C5-C6. Severe bilateral foramina stenosis at C5-C6 and C6-C7. Reading Location: [facility]
--- NOTE | 2025-04-25 15:08 | CASEMGMT ---
RN CM NOTE: Referral made w/Shauna, [facility] and TCU coordinator skill training program. Lee HAYESN RN CM
[2025-04-25] MEDS: 0.9% Saline Lock 10 ML Syringe IV (16:37)
[2025-04-25] MEDS: DiphenhydrAMINE 50 MG/ML Syringe 25 MG IV (16:37)
[2025-04-25] MEDS: Ketorolac 30 MG/ML Syringe IV (16:39)
--- NOTE | 2025-04-25 16:47 | CASEMGMT ---
Social Work Pt negative for stroke. PHQ9 not completed. MIC Calderon
--- NOTE | 2025-04-25 17:46 | PCM.PN.HOSP ---
Reason for Visit Chief Complaint: LUE weakness/paresthesias. Subjective Subjective Patient remains with left-sided paresthesias and weakness. NIH is 4. MRI of the brain was negative so we discussed that she does not have a stroke and/or TIA. We did discuss that neurology thinks this may be a complex migraine but my plan was to assess her cervical spine as well based on her history. Cocktail was ordered for complex migraine. Patient is persistently asking if she will be able to go home tomorrow. I did discuss with her and her relative at the bedside that that will depend on how she is doing clinically and what we find on the MRI of her cervical spine. Patient and family voiced understanding. No changes better or worse at this time Objective Data Objective Data Vital Signs: Vital Signs Temp Pulse Resp BP Pulse Ox O2 Del Method 97.8 F 90 17 150/85 H 99 Room Air 04/25/25 14:23 04/25/25 14:23 04/25/25 14:23 04/25/25 14:23 04/25/25 14:23 04/25/25 14:23 Oxygen Delivery Method Room Air Weight: 76.7 kg Body Mass Index (BMI) 30.9 Intake & Output: Intake and Output for Last 24 Hours 04/23/25 04/24/25 04/25/25 23:59 23:59 23:59 Intake Total 1240 / 1240 Balance 1240 / 1240 Lab / Micro Data 04/25/25 06:37 04/25/25 06:37 Labs: Laboratory Results - last 24 hr 04/24/25 18:04: POC Glucose 78 04/24/25 21:22: POC Glucose 145 H 04/25/25 06:28: POC Glucose 131 H 04/25/25 06:37: WBC 4.6, RBC 3.39 L, Hgb 10.7 L, Hct 32.2 L, MCV 95.0, MCH 31.6, MCHC 33.2, RDW Std Deviation 49.6 H, RDW Coeff of [place] 14.4, Plt Count 154, MPV 11.6, Immature Gran % (Auto) 0.200, Neut % (Auto) 47.6, Lymph % (Auto) 40.0, [place] % (Auto) 9.6, Eos % (Auto) 2.2, Baso % (Auto) 0.4, Absolute Neuts (auto) 2.2, Absolute Lymphs (auto) 1.83, Nucleated RBC % 0, Sodium 142, Potassium 4.4, Chloride 108 H, Carbon Dioxide 24.1, Anion Gap 9, BUN 22 H, Creatinine 1.22 H, Estim Creat Clear Calc 39.97 L, Est GFR (MDRD) Non-Af 47 L, BUN/Creatinine Ratio 18.0, Glucose 125 H, Hemoglobin A1c 6.5 H, Calcium 8.8, Total Bilirubin 0.32, AST 20, ALT 16, Alkaline Phosphatase 60, Total Protein 6.2, Albumin 3.5, Globulin 2.8, Albumin/Globulin Ratio 1.3, Triglycerides 70, Cholesterol 118, LDL Cholesterol, Calc 51, VLDL Cholesterol 14, HDL Cholesterol 53, Cholesterol/HDL Ratio 2.23, TSH 3.330, Free T4 1.00 04/25/25 11:35: POC Glucose 118 H 04/25/25 16:34: POC Glucose 117 H Radiography Diagnostic Testing: Radiology Impression Echocardiogram 04/24/25 16:11 Interpretation Summary The estimated ejection fraction is 65-70 %. Moderate concentric left ventricular hypertrophy. Hyperdynamic LV contraction generating a 30-50 mm gradient with Valsalva. Does not appear to be true hypertrophic cardiomyopathy more so likely related to hyperdynamic LV function. Mild-Moderate (1-2+) tricuspid valve insufficiency. Normal sized IVC that collapses with respiration/sniff. Compared to previous study 11/16/2023 no significant changes appreciated. Overall normal ejection fraction with mild to moderate valvular heart disease. Current echocardiogram does show a elevated Valsalva gradient however likely related to hyperdynamic LV function. Ordering Physician: Pauline Rodriguez Referring Physician: Kannan Garcia Performed By: Misti Godinez, YUMIKO Physical Exam Const alert, oriented x3, no apparent distress and well nourished; Negative for average body habitus Constitutional Narrative: Obese, older, -Citizen Of [place] female, sitting up in bed, family at bedside, patient currently appears comfortable, does not look toxic HEENT head/scalp atraumatic and moist oral mucous membranes HEENT Narrative: Mallampati 3, no thrush Head and Scalp: normocephalic Eyes conjunctivae normal Eyes Narrative: No scleral icterus Resp normal respiratory effort, no retractions, no use of accessory muscles and clear to auscultation bilaterally Auscultation: Negative for rales, rhonchi or wheezes Cardio regular rate, regular rhythm, S1 normal heart sound, S2 normal heart sound, no murmurs, no rub, no gallops and no clicks GI normal to inspection, nondistended, normoactive bowel sounds, soft to palpation and non-tender Extremity Extremity Narrative: Trace edema left upper extremity, no other extremity edema noted, no cyanosis or clubbing Neuro No no sensory deficits noted Neuro Narrative: Decreased movement left upper extremity with inconsistent patterns, reports sensory deficits in left upper extremity diffusely and left lower extremity Speech: speech normal Psych affect normal Psych Narrative: Eye contact is good and patient interacts appropriately Assessment & Plan Assessment/Plan (1) Left leg paresthesias: (2) Arm paresthesia, left: (3) Left-sided weakness: PLAN: Plan Left-sided weakness/paresthesias/left-sided headache - MRI ruled out acute stroke - With ongoing symptoms and negative imaging likely not TIA - Neurology has evaluated the patient and suspects stress response/complex migraine - Patient does have history of conversion disorder - Recommended to milligrams of IV Decadron, 25 mg of IV Benadryl, 10 mg of IV Compazine, and 30 mg of IV Toradol all x 1 dose with reevaluation tomorrow - Will check cervical spine MRI with and without contrast given the fact that this is the only other location upper and lower extremity neurological changes could be derived from - Continue PT/OT - Echocardiogram was done for stroke and does show an EF of 65 to 70% with mild concentric LVH, mild to moderate tricuspid valve insufficiency, normal IVC and stable with comparison to previous echo Thyroid nodules - Incidentally found on imaging - TSH and free T4 are within normal limits - Outpatient follow-up for imaging Thrombocytopenia - Resolved Chronic normocytic anemia - Hemoglobin is relatively stable - No further workup at this time CKD stage IIIa - Serum creatinine slightly elevated from baseline and currently 1.22 - Repeat lab in a.m. - Avoid nephrotoxins as able DM-2 - A1c is 6.5 - Home oral regimen is on hold - Accu-Cheks and SSI as ordered - Was given Decadron x 1 dose and anticipate blood sugar should trend up some with steroids CAD/essential hypertension/hyperlipidemia/chronic HFpEF - Previous CABG x 4 - Continue aspirin - Discontinue Plavix - Continue high intensity of statin - Restart home Lasix - Restart home antihypertensive regimen Allergic rhinitis - Continue home medications Seizure disorder - Continue home Keppra History of conversion disorder - Monitor clinically GERD - Continue PPI Rheumatoid arthritis - Continue hydroxychloroquine and restart Biologics at discharge LINA - Continue home CPAP Obesity - Recommend weight loss - Complicates treatment, prognosis, outcomes - BMI 30.9 DVT prophylaxis - Continue Lovenox CODE STATUS - full code Charges/Coding Visit Charges Inpatient E&M: 05510 Subs Hosp L2 NIHSS NIHSS Nursing Documentation NIHSS Nursing Documentation: NIHSS: Ischemic Stroke/TIA Start: 04/24/25 16:11 Text: For PCU Patients: NIH and Neuro Check every 4 Status: Complete hours, PRN and with change in RN caregiver. Freq: [id number] Protocol: Activity Type Activity Date Activity User E-sign Co-sign Detail Recorded Client Recorded Date Recorded By Document 04/25/25 14:23 [id number] 04/25/25 14:30 04/25/25 14:23 NIH Stroke Scale [NIHSS] A score of 0 is normal or asymptomatic . Total possible score is 42. Inpatient: RN or Physician to activate a stroke alert for onset of new stroke symptoms or with NIHSS increase >/= 3 points. Following change in neurological status, NIHSS will be performed per physician order or more frequently PRN. -1a. Level of Consciousness 0 - Alert; keenly responsive -1b. LOC Questions 0 - Answers BOTH questions correctly -1c. LOC Commands 0 - Performs BOTH tasks correctly -2. Best Gaze 0 - Normal -3. Visual 0 - No visual loss -4. Facial Palsy 0 - Normal symmetrical movements -5a. Left Arm 2 - Some effort against gravity; -5b. Right Arm 0 - No drift; arm holds 90 ( or 45) degrees for full 10 seconds -6a. Left Leg 0 - No drift; leg holds 30- degree position for full 5 seconds -6b. Right Leg 0 - No drift; leg holds 30- degree position for full 5 seconds -7. Limb Ataxia 0 - Absent -8. Sensory 1 - Mild-to- moderate sensory loss; -9. Best Language 0 - No aphasia; normal -10. Dysarthria 0 - Normal -11. Extinction and Inattention 0 - No abnormality -Total 3 Query Text:A score of 0 is normal or asymptomatic. Total possible score is 42 . ED: Notify Physician for NIHSS increase by > / = 3 points. Inpatient: RN or Physician to activate a stroke alert for NIHSS increase of > / = 3 points.
[2025-04-25] MEDS: Divalproex (ER) 500 MG Tablet 1000 MG PO (21:05)
[2025-04-26 02:03] VITALS: PULSE 74; RESP 16; O2SAT 96
[2025-04-26 02:05] VITALS: BMI 30.4
[2025-04-26 04:10] VITALS: BP 141/77; PULSE 69; RESP 18; TEMP 36.2; O2SAT 96
[2025-04-26 05:38] LABS: Hematocrit 31.3 % (37-47); Hemoglobin 10.7 g/dL (12.0-15.0); Mean Corp Hgb Conc 34.2 g/dL (32-36); Mean Corpuscular Volume 94.6 fL (81-99); Mean Platelet Vol. 11.7 fl (6.2-12.0); Platelet Count 132 K/mm3 (150-450); RBC Distribution Width CV 13.9 % (11.6-14.6); RBC Distribution Width SD 47.8 fl (35.1-43.9); Red Blood Count 3.31 M/mm3 (4.2-5.4); White Blood Count 3.9 K/mm3 (4.4-11.0)
[2025-04-26 06:32] LABS: Anion Gap 11 (7-18); BUN 29 mg/dL (4-19); BUN/Creat Ratio 21.2 RATIO (10-20); Calcium,Total 9.1 mg/dL (7.6-11.0); Carbon Dioxide 23.9 mmol/L (20.0-29.0); Chloride 109 mmol/L (96-106); Estimated Creatinine Clearance 34.78 ml/min (50-250); Glucose 100 mg/dL (70-99); Potassium 4.9 mmol/L (3.5-5.1)
[2025-04-26 08:24] VITALS: BMI 30.4
[2025-04-26 08:25] VITALS: BP 166/92; PULSE 70; RESP 18; TEMP 36.5; O2SAT 100
--- NOTE | 2025-04-26 08:47 | PN.NEURO_ITS ---
Assessment and Plan: Neuro Assessment/Plan LACY ALVARADO is a 74 F with a past medical history of epilepsy, occipital neuralgia, being evaluated by Teleneurology for L sided numbness and tingling. Symptoms consistent with complex migraine. Exam with giveway weakness on the L and some parasthesias. Imaging in benign. Taken together, constellation of symptoms and clinical progression consistent with the complex migraine. Diagnosis: complex migraine Plan: - can repeat migraine cocktail: toradol 30mg IV, benadryl 25mg PO, [id number] and 2 gram IV - discharge with a Medrol dosepak - dispo per PT Teleneurology will sign off I personally attended this patient and spent a total time of 30minutes evaluating this patient including clinical assessment, review of chart, medical history imaging, and determining appropriate treatment and workup Subject: Neurology Subjective Headache greatly improved today, she states she feels a lot better Exam: ? NEURO: -? Mental Status: The patient was alert and oriented to time, place, and person. Normal recent/remote memory, and general fund of knowledge. Concentration is poor -? Language: speech is clear? Naming, repetition, fluency, and comprehension intact. -? Cranial Nerves: PERRL 4mm/brisk. EOMI, visual wallace full, no facial asymmetry, facial sensation diminished on the LV1-3 but improved from yesterday, hearing intact, tongue midline, no evidence of atrophy or fibrillations. -? Motor: no drift on LUE today, drift to bed on LLE -? Detailed strength exam as performed by the nurse/SONYA and witnessed by the physician: 3 l R L SA 5 4 EE 5 5- EF WE WF Rod Pointer 5 4 HF KE KF 5 4 DF PF -? Tone: is normal and bulk is normal -? Sensation- LT diminished on the LUE and LLE but improved from yesterday -? Coordination: No dysmetria on [id number], slower on the LUE but no ataxia -? Gait- deferred EEG Results Procedure Details EEG Procedure Details: LACY ALVARADO is a 74 year old F with a past medical history of , who presents for evaluation of Electroencephalogram on DATE at TIME Objective Data Objective Data Vital Signs: Vital Signs Temp Pulse Resp BP Pulse Ox O2 Del Method FiO2 97.7 F L 70 18 166/92 H 100 Room Air 21 04/26/25 08:25 04/26/25 08:25 04/26/25 08:25 04/26/25 08:25 04/26/25 08:25 04/26/25 08:25 04/26/25 02:03 Oxygen Delivery Method Room Air Weight: 75.4 kg Body Mass Index (BMI) 30.4 Intake & Output: Intake and Output for Last 24 Hours 04/24/25 04/25/25 04/26/25 23:59 23:59 23:59 Intake Total 1240 / 1240 Output Total 0 / 0 Balance 1240 / 1240 0 / 0 Lab / Micro Data 04/26/25 04:45 04/26/25 04:45 Labs: Laboratory Results - last 24 hr 04/25/25 11:35: POC Glucose 118 H 04/25/25 16:34: POC Glucose 117 H 04/25/25 20:55: POC Glucose 169 H 04/26/25 04:45: WBC 3.9 L, RBC 3.31 L, Hgb 10.7 L, Hct 31.3 L, MCV 94.6, MCH 32.3 H, MCHC 34.2, RDW Std Deviation 47.8 H, RDW Coeff of [place] 13.9, Plt Count 132 L, MPV 11.7, Sodium 145, Potassium 4.9, Chloride 109 H, Carbon Dioxide 23.9, Anion Gap 11, BUN 29 H, Creatinine 1.39 H, Estim Creat Clear Calc 34.78 L, Est GFR (MDRD) Non-Af 40 L, BUN/Creatinine Ratio 21.2 H, Glucose 100 H, Calcium 9.1 04/26/25 06:37: POC Glucose 90 Radiography Diagnostic Testing: Radiology Impression Echocardiogram 04/24/25 16:11 Interpretation Summary The estimated ejection fraction is 65-70 %. Moderate concentric left ventricular hypertrophy. Hyperdynamic LV contraction generating a 30-50 mm gradient with Valsalva. Does not appear to be true hypertrophic cardiomyopathy more so likely related to hyperdynamic LV function. Mild-Moderate (1-2+) tricuspid valve insufficiency. Normal sized IVC that collapses with respiration/sniff. Compared to previous study 11/16/2023 no significant changes appreciated. Overall normal ejection fraction with mild to moderate valvular heart disease. Current echocardiogram does show a elevated Valsalva gradient however likely related to hyperdynamic LV function. Ordering Physician: Pauline Rodriguez Referring Physician: Kannan Garcia Performed By: Misti Godinez, RDCAMILO Cervical Spine MRI 04/25/25 14:46 IMPRESSION: No acute abnormality or abnormal enhancement. Multilevel degenerate changes predominantly for moderate canal stenosis at C4-C5 and C5-C6. Severe bilateral foramina stenosis at C5-C6 and C6-C7. Reading Location: [facility] NIHSS NIHSS Nursing Documentation NIHSS Nursing Documentation: NIHSS: Ischemic Stroke/TIA Start: 04/24/25 16:11 Text: For PCU Patients: NIH and Neuro Check every 4 Status: Complete hours, PRN and with change in RN caregiver. Freq: [id number] Protocol: Activity Type Activity Date Activity User E-sign Co-sign Detail Recorded Client Recorded Date Recorded By Document 04/25/25 14:23 [id number] 04/25/25 14:30 04/25/25 14:23 NIH Stroke Scale [NIHSS] A score of 0 is normal or asymptomatic . Total possible score is 42. Inpatient: RN or Physician to activate a stroke alert for onset of new stroke symptoms or with NIHSS increase >/= 3 points. Following change in neurological status, NIHSS will be performed per physician order or more frequently PRN. -1a. Level of Consciousness 0 - Alert; keenly responsive -1b. LOC Questions 0 - Answers BOTH questions correctly -1c. LOC Commands 0 - Performs BOTH tasks correctly -2. Best Gaze 0 - Normal -3. Visual 0 - No visual loss -4. Facial Palsy 0 - Normal symmetrical movements -5a. Left Arm 2 - Some effort against gravity; -5b. Right Arm 0 - No drift; arm holds 90 ( or 45) degrees for full 10 seconds -6a. Left Leg 0 - No drift; leg holds 30- degree position for full 5 seconds -6b. Right Leg 0 - No drift; leg holds 30- degree position for full 5 seconds -7. Limb Ataxia 0 - Absent -8. Sensory 1 - Mild-to- moderate sensory loss; -9. Best Language 0 - No aphasia; normal -10. Dysarthria 0 - Normal -11. Extinction and Inattention 0 - No abnormality -Total 3 Query Text:A score of 0 is normal or asymptomatic. Total possible score is 42 . ED: Notify Physician for NIHSS increase by > / = 3 points. Inpatient: RN or Physician to activate a stroke alert for NIHSS increase of > / = 3 points.
[2025-04-26] MEDS: Aspirin E.C. 81 MG Tablet PO (09:26)
[2025-04-26] MEDS: Divalproex (ER) 500 MG Tablet PO (09:26)
[2025-04-26 09:28] VITALS: PULSE 70
[2025-04-26] MEDS: DiphenhydrAMINE 50 MG/ML Syringe 25 MG IV (10:22)
--- NOTE | 2025-04-26 11:27 | CASEMGMT ---
Addendum entered by Edu Erazo 04/26/25 13:00: Script for glucometer faxed to [facility]. Pt also given copy of script. She states she thinks it was only 2-3 yrs since she got her last glucometer and she is pretty sure she got it through her insurance. Pt made aware of option of getting glucometer OTC if insurance does not cover for it. She voices understanding. Addendum entered by Edu Erazo 04/26/25 12:36: Script for OP PT/OT and ST faxed to [facility]. Addendum entered by Edu Erazo 04/26/25 12:28: Pt made aware appt's have been scheduled @ [facility] on 05/11 for PT/OT & ST, and that this will be printed on her discharge paperwork. She voices appreciation. Addendum entered by Edu Erazo 04/26/25 12:27: Pt called son, Aleksandr, while KARINA BRYANT in room w/her & placed him on speaker phone. She notified him that she has been discharged & asked him to come pick her up. KARINA BRYANT informed Aleksandr that [facility] closes today @ 2 PM. He states he will be here by 1 PM. Pt and Aleksandr made aware there is an Rx ready to be picked up there and also a script for glucometer will be faxed to [facility] so they can pick that up today as well. Original Note: KARINA BRYANT NOTE: Reviewed PT/OT notes from today. Pt has improved since yesterday and able to ambulate 75 ft w/SBA and no use of walker. HHC or OP therapy recommended. RN to room. Pt resting in bed. Introduced self and role. Discussed HHC and OP therapy. Pt made aware of HH's homebound criteria and made aware she does not meet this. She would like to do OP therapy and chose [facility], stating she has been there before. Pt states she does not drive, but uses [employer] and can use that to get there and home. She asked for appt's to be scheduled and prefers appts after 1:45 PM. Noted that pt did not want to work on steps w/therapy today. She states she feels safe discharging home today and her son, Aleksandr, who lives w/her and who will be taking her home today, can help her up the steps. Pt states she does not need a walker now. She would still like a script for a glucometer. Lee HAYESN RN CM
[2025-04-26 11:30] VITALS: BP 143/68; PULSE 79; RESP 18; TEMP 36.5; O2SAT 99
--- NOTE | 2025-04-26 11:39 | DS.PCM_ITS ---
Providers Date of Admission: 04/24/25 Date of Discharge: 04/26/25 Primary Care Physician: Dr. Kannan Garcia MD Consultations 04/24/25 16:11 Consult: Tele-Neurology Routine Consulting Provider: [facility] Reason for Consult: Acute Ischemic Stroke/TIA EMERGENT Consult: No MD Notified: Yes Date Notified: 04/24/25 Time Notified: 16:27 Method of Notification: Answering Service Nursing Unit Staff Notify [facility] of Tele-Neurology Consult: Yes Reason For Visit: CVA Diagnosis Discharge Diagnosis (1) Left leg paresthesias: Status: Acute Code(s): R20.2 - Paresthesia of skin (2) Arm paresthesia, left: Status: Acute Code(s): R20.2 - Paresthesia of skin (3) Left-sided weakness: Status: Acute Code(s): R53.1 - Weakness Medications at Discharge Home Medications multivitamin 1 tab PO DAILY vitamin 05/20/19 blood-glucose meter (True Metrix Air Glucose Meter kit) #1 ea 02/03/20 calcium citrate 200 mg PO DAILY supplement 05/21/20 disability placard #1 ea 06/27/20 aspirin 81 mg tablet,delayed release (Adult Low Dose Aspirin) 81 mg PO DAILY heart 08/13/20 blood sugar diagnostic (True Metrix Glucose Test Strip) #100 ea 06/17/23 lancets 33 gauge #100 ea 06/17/23 Handicap Placard #1 ea 01/07/24 gabapentin 300 mg capsule 300 mg PO QHS nerve pain #30 caps 02/14/24 metoprolol tartrate 25 mg tablet 25 mg PO QDAY heart #90 tabs 04/19/24 hydroxychloroquine 200 mg tablet See Rx Instructions .Route .COMPLEX immunosuppressant #180 tabs 09/21/24 sitagliptin phosphate 100 mg tablet (Januvia) See Rx Instructions .Route .COMPLEX diabetes #90 tabs 09/21/24 divalproex 500 mg tablet,delayed release (Depakote) 500 mg .Route .COMPLEX seizures #90 tabs 11/07/24 pantoprazole 40 mg tablet,delayed release 40 mg PO QDAY reflux #90 tabs 01/19/25 atorvastatin 80 mg tablet 80 mg PO QHS cholesterol #90 tabs 01/23/25 evolocumab 140 mg/mL subcutaneous pen injector (Repatha SureClick) 140 mg subcut Q2W cholesterol #2 mL 01/23/25 furosemide 40 mg tablet (Lasix) 20 mg PO DAILY diuretic 01/23/25 denosumab 60 mg/mL subcutaneous syringe (Prolia) 60 mg subcut [id number] bone health #1 mL 01/26/25 CPAP - Continuous Positive Airway Pressure([facility] INFORMATIONAL USE ONLY) 02/13/25 linaclotide 72 mcg capsule (Linzess) 72 mcg PO QAM irritable bowel #30 caps 02/27/25 levocetirizine 5 mg tablet (Xyzal) 5 mg PO QPM PRN allergy symptoms #90 tabs 03/17/25 fluticasone furoate 27.5 mcg/actuation nasal spray,suspension (Flonase Sensimist) 2 spray intranasal QDAY PRN allergy symptoms 04/24/25 methylprednisolone 4 mg tablets in a dose pack (Medrol (Rob)) See Rx Instructions PO .COMPLEX #21 tabs 04/26/25 Hospital Course Operations None Procedures EKG and - (CT brain/CTA head and neck/MRI brain/cervical spine MRI/chest x-ray) Summary of Care Provided Minutes Spent on Discharge: 37 Hospital Course: Mrs. Clark is a 74-year-old -[place] female with a complex medical history who presented to the emergency department at [facility] on 04/24/2025 due to left upper and lower extremity weakness and paresthesias. It started on Thursday and progressed into Thursday patient stated symptoms worsened over that time.. 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 She also had an associated left-sided headache that started the day prior to presentation that was worsening as well. She is left- hand dominant at baseline. Vital signs on presentation showed temperature of 98.2, heart rate 99, respiratory rate 16, blood pressure was initially 152/82 and a repeat of 134/100 and pulse ox was 100% on room air. CBC showed a chronic thrombocytopenia and a mild chronic stable anemia with a hemoglobin 11.9. Electrolytes were overtly unremarkable. Troponin was initially 8 with a delta of 7. CT of the brain was unremarkable. CTA of the head and neck showed short segment high-grade stenosis of the right intracranial vertebral artery at 75% and less than 50% carotid artery stenosis along with incidental finding of thyroid nodules with the largest measuring 2.2. Given thyroid nodule being noted on imaging thyroid function studies were obtained and were normal. Chest x-ray was unremarkable. EKG showed sinus rhythm without any ST-T wave changes concerning for acute ischemia normal intervals. The concern was stroke so she was admitted for per stroke protocol. With her headache complex migraine was also in the differential. Her antihypertensives were held to allow for permissive hypertension, she was started on sprint and Plavix, and an MRI and echocardiogram were ordered along with neurology consultation. Her echocardiogram showed an EF of 65 to 70% with moderate concentric LVH and a hyperdynamic LV with mild to moderate tricuspid valve insufficiency. Her MRI was negative for any acute findings. Neurology evaluated the patient was highly suspicious of complex migraine and recommended Toradol, Benadryl, Compazine, and IV Decadron. These were ordered and the patient and her symptoms did markedly improved by the a.m. of 04/26/2025. They had not completely resolved so neurology again recommended a repeat of the cocktail with a discharge home on a Medrol Dosepak. She was seen by physical Occupational Therapy during her stay and they felt she could go home with assistance. Given the improved function in her left upper and lower extremity she was able to be discharged home with an order for outpatient therapy on 04/26/2025. She was also sent on a Medrol Dosepak as recommended by neurology. She should follow-up with her primary care physician within the next 1 to 2 weeks after discharge for posthospital follow- up. If she has ongoing issues with migraines possible neurology referral may need to be performed. She should also have thyroid ultrasound to evaluate thyroid nodules more completely. Discharge diagnoses: Left-sided weakness and paresthesias secondary to complex migraine Left-sided headache secondary to complex migraine Thyroid nodules with normal thyroid function studies Thrombocytopenia Chronic normocytic anemia CKD stage IIIa DM-2 CAD Essential hypertension Hyperlipidemia Chronic HFpEF Allergic rhinitis Seizure disorder History of conversion disorder GERD Rheumatoid arthritis LINA Obesity Physical Exam Const alert, oriented x3, no apparent distress, no limitations and well nourished; Negative for average body habitus Constitutional Narrative: Obese, older, -[place] female, sitting up in bed, watching television patient currently appears comfortable, does not look toxic General Appearance: cooperative, comfortable, well kempt and well developed Exam Limitations: no limitations Nutritional Appearance: obese HEENT normocephalic, head/scalp atraumatic, hearing grossly normal bilaterally and moist oral mucous membranes HEENT Narrative: Dentition is poor, Mallampati is 2-3, no thrush Eyes conjunctivae normal Eyes Narrative: No scleral icterus Neck supple Neck Narrative: Trachea midline Resp normal respiratory effort, no retractions, no use of accessory muscles and clear to auscultation bilaterally Auscultation: Negative for rales, rhonchi or wheezes Cardio regular rate, regular rhythm, S1 normal heart sound, S2 normal heart sound, no murmurs, no rub, no gallops and no clicks GI normal to inspection, nondistended, normoactive bowel sounds, soft to palpation and non-tender Extremity Extremity Narrative: Trace edema left upper extremity, no other extremity edema noted, no cyanosis or clubbing Skin no jaundice, no petechiae and no mottling Neuro No no sensory deficits noted Neuro Narrative: Improve movement and sensation of the left side of her body that is markedly different than yesterday Speech: speech normal Psych affect normal Psych Narrative: Eye contact is good and patient interacts appropriately Weight / BMI Weight Weight: 75.4 kg Body Mass Index (BMI) 30.4 ABG / Lab / Microbiology Data 04/26/25 04:45 04/26/25 04:45 Laboratory: Laboratory Results - last 24 hr 04/25/25 11:35: POC Glucose 118 H 04/25/25 16:34: POC Glucose 117 H 04/25/25 20:55: POC Glucose 169 H 04/26/25 04:45: WBC 3.9 L, RBC 3.31 L, Hgb 10.7 L, Hct 31.3 L, MCV 94.6, MCH 32.3 H, MCHC 34.2, RDW Std Deviation 47.8 H, RDW Coeff of [place] 13.9, Plt Count 132 L, MPV 11.7, Sodium 145, Potassium 4.9, Chloride 109 H, Carbon Dioxide 23.9, Anion Gap 11, BUN 29 H, Creatinine 1.39 H, Estim Creat Clear Calc 34.78 L, Est GFR (MDRD) Non-Af 40 L, BUN/Creatinine Ratio 21.2 H, Glucose 100 H, Calcium 9.1 04/26/25 06:37: POC Glucose 90 Radiography Diagnostic Testing: Radiology Impression Echocardiogram 04/24/25 16:11 Interpretation Summary The estimated ejection fraction is 65-70 %. Moderate concentric left ventricular hypertrophy. Hyperdynamic LV contraction generating a 30-50 mm gradient with Valsalva. Does not appear to be true hypertrophic cardiomyopathy more so likely related to hyperdynamic LV function. Mild-Moderate (1-2+) tricuspid valve insufficiency. Normal sized IVC that collapses with respiration/sniff. Compared to previous study 11/16/2023 no significant changes appreciated. Overall normal ejection fraction with mild to moderate valvular heart disease. Current echocardiogram does show a elevated Valsalva gradient however likely related to hyperdynamic LV function. Ordering Physician: Pauline Rodriguez Referring Physician: Kannan Garcia Performed By: Misti Godinez RDCS Cervical Spine MRI 04/25/25 14:46 IMPRESSION: No acute abnormality or abnormal enhancement. Multilevel degenerate changes predominantly for moderate canal stenosis at C4-C5 and C5-C6. Severe bilateral foramina stenosis at C5-C6 and C6-C7. Reading Location: [facility] D/C Instructions Discharge Activity: Return to Normal Activity DC O2, CPAP, BIPAP Needs Home O2 Discharge instructions: No DC home with Oxygen: No Patient's Goals Of Care - F/U Goals Reviewed Goals of care reviewed with patient: Yes - No change Meaningful Use Info Meaningful Use Meaningful Use Diagnoses (Choose all that apply): None applicable Discharge Plan Admission Admit Date/Time: 04/24/25 15:05 Primary Reason for Your Visit: Left-sided weakness and paresthesias Attending Provider: Deidre [place] Primary Care Provider: Kannan Garcia Consulting Providers: Jonas Cross; Lesvia Mendenhall; Melissa Akhtar; Mandi Chavarria; Shari Pickens; Raj Acevedo; June Lakhani; Bryce Herring; Vishnu Rosa; Doug Fisher; Anitra Soto; Joselyn Lackey; David Padilla; Laurie Elizabeth; Chaparro Paulino; Lois Restrepo; Ritesh Carias; Monica Rao; Mookie George; Noemi [place]; Malena Siddiqui; Pauline Rodriguez L Instructions Additional Instructions / Restrictions: 1. The imaging they did at the time of admission did show some thyroid nodules. Your thyroid function was normal. You may need an outpatient ultrasound and I will let your primary care doctor know in my discharge summary. 2. Your blood sugars will be elevated while you are on the Medrol Dosepak but should return to normal within a few days after stopping this is to help with your symptoms and was recommended by neurology. Discharge Orders/Prescriptions Prescriptions: New methylprednisolone [Medrol (Rob)] 4 mg tablets,dose pack See Rx Instructions .ROUTE .COMPLEX Qty: 21 0RF Rx Instructions: for 6 days Continued multivitamin Tablet 1 tab PO DAILY calcium citrate 200 mg (950 mg) tablet 200 mg PO DAILY aspirin [Adult Low Dose Aspirin] 81 mg tablet,delayed release (DR/EC) 81 mg PO DAILY metoprolol tartrate 25 mg tablet 25 mg PO QDAY Qty: 90 3RF (DME) lancets 33 gauge misc See Rx Instructions .Route Qty: 100 2RF Rx Instructions: As directed (DME) True Metrix Glucose Test Strip Strip See Rx Instructions .ROUTE .MEDSUPPLY Qty: 100 3RF Rx Instructions: check twice a day and as needed divalproex [Depakote] 500 mg tablet,delayed release (DR/EC) 500 mg .ROUTE .COMPLEX Qty: 90 10RF Rx Instructions: Take 1 tablet orally qAM and 2 tablets qPM hydroxychloroquine 200 mg tablet See Rx Instructions .ROUTE .COMPLEX Qty: 180 1RF Dose Instruction: TAKE 1 TABLET BY MOUTH TWICE DAILY WITH MEALS Rx Instructions: TAKE 1 TABLET BY MOUTH TWICE DAILY WITH MEALS Januvia 100 mg tablet See Rx Instructions .ROUTE .COMPLEX Qty: 90 1RF Dose Instruction: TAKE 1 TABLET BY MOUTH DAILY Rx Instructions: TAKE 1 TABLET BY MOUTH DAILY Linzess 72 mcg capsule 72 mcg PO QAM Qty: 30 3RF pantoprazole 40 mg tablet,delayed release (DR/EC) 40 mg PO QDAY Qty: 90 1RF furosemide [Lasix] 40 mg tablet 20 mg PO DAILY atorvastatin 80 mg tablet 80 mg PO QHS Qty: 90 3RF Repatha SureClick 140 mg/mL pen injector 140 mg subcut Q2W Qty: 2 6RF levocetirizine [Xyzal] 5 mg tablet 5 mg PO QPM PRN (Reason: allergy symptoms) Qty: 90 1RF Flonase Sensimist 27.5 mcg/actuation spray,suspension 2 spray intranasal QDAY PRN (Reason: allergy symptoms) Rx Instructions: into each nostril gabapentin 300 mg capsule 300 mg PO QHS Qty: 30 0RF (DME) CPAP - Continuous Positive Airway Pressure([facility] INFORMATIONAL USE ONLY) See Rx Instructions .Route .MEDSUPPLY Rx Instructions: CPAP 6 DME- DASCO MASK- SW RESMED AIRTOUCH N30i NASAL MASK (DME) blood-glucose meter [True Metrix Air Glucose Meter] Kit See Rx Instructions .ROUTE .MEDSUPPLY Qty: 1 0RF Rx Instructions: As directed (DME) disability placard See Rx Instructions .ROUTE .MEDSUPPLY Qty: 1 0RF Rx Instructions: As directed, Length of time: 5 years (DME) Handicap Placard See Rx Instructions .ROUTE .MEDSUPPLY Qty: 1 0RF Rx Instructions: As directed, length of time 3 years Prolia 60 mg/mL syringe 60 mg subcut [id number] Qty: 1 2RF Referrals / Follow Up: Kannan Garcia MD [Primary Care Provider, Internal Medicine] - Within 1 Week Referral Note: LEFT MESSAGE FOR THE OFFICE TO CONTACT PATIENT FOR APPOINTMENT Disposition Disposition (needs filled in before D/C Order can be placed): Home, Self Care Charges/Coding Visit Charges Inpatient E&M: 68640 Disch Hosp >30min
== END 2025-04-26 13:14 | disposition home or self-care (01) | DRG 103 ==
LOC: ED 11:19 → PCU 15:16
PROVIDERS: Admitting Provider Family Medicine; Emergency Provider Student in an Organized Health Care Education/Training Program; PCP Internal Medicine; Visit Provider Internal Medicine
DX: G43.109 Migraine with aura, not intractable, without status migrainosus (principal); I50.32 Chronic diastolic (congestive) heart failure; I13.0 Hypertensive heart and chronic kidney disease with heart failure and stage 1 through stage 4 chronic kidney disease, or unspecified chronic kidney disease; D69.6 Thrombocytopenia, unspecified; E11.22 Type 2 diabetes mellitus with diabetic chronic kidney disease; E04.2 Nontoxic multinodular goiter; D64.9 Anemia, unspecified; E11.40 Type 2 diabetes mellitus with diabetic neuropathy, unspecified; G40.909 Epilepsy, unspecified, not intractable, without status epilepticus; N18.31 Chronic kidney disease, stage 3a; M06.9 Rheumatoid arthritis, unspecified; E66.9 Obesity, unspecified; E78.5 Hyperlipidemia, unspecified; I25.10 Atherosclerotic heart disease of native coronary artery without angina pectoris; K21.9 Gastro-esophageal reflux disease without esophagitis; G47.33 Obstructive sleep apnea (adult) (pediatric); M54.81 Occipital neuralgia; J30.9 Allergic rhinitis, unspecified; R53.83 Other fatigue; Z95.5 Presence of coronary angioplasty implant and graft; Z68.30 Body mass index [BMI] 30.0-30.9, adult; Z79.01 Long term (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 of anticoagulants; Z79.82 Long term (current) use of aspirin; Z79.84 Long term (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 of oral hypoglycemic drugs; Z79.899 Other long term (current) drug therapy
CPT/HCPCS: 36415; 70450; 70496; 70498; 70551; 71046; 72156; 80048; 80053; 80061; 82962; 83036; 83735; 84439; 84443; 84484; 85025; 85027; 92523; 93005; 93306; 94660; 97110; 97163; 97167; 97530; 97535; 97802; 99285; A9575; Q9967; A4216; J2405